=== PATIENT | male | born 1970 | race Caucasian/White ===

== ENCOUNTER 2022-10-23 05:58 | Emergency (ER) | payer MEDICAID, SELFPAY ==
[2022-10-23] VITALS (7 sets, daily range): BP systolic 119–158; BP diastolic 74–127; PULSE 73–117; RESP 14–22; TEMP 36.4; O2SAT 92–98; BMI 47.7
[2022-10-23 06:14] LABS: Absolute Neutrophil Count 5.4 X10^3/uL (2.0-7.7); Basophil# 0.06 X10^3/uL; Basophil% 0.8 % (0-1); Eosinophil# 0.19 X10^3/uL; Eosinophils% 2.4 % (0-5); Hematocrit 54.3 % (40-54); Hemoglobin 17.2 g/dL (13.0-16.5); Mean Corp Hgb Conc 31.7 g/dL (32-36); Mean Corpuscular Hgb 28.4 pg (27.0-32.0); Mean Corpuscular Volume 89.6 fL (80-94); Mean Platelet Vol. 10.3 fl (6.2-12.0); Monocyte# 0.76 X10^3/uL; Monocyte% 9.6 % (0-10); NRBC Flagged by Analyzer 0 % (0-5); Neutrophil # 5.38 X10^3/uL (2.7-7.7); Neutrophil % 67.9 % (47-70); Platelet Count 234 K/mm3 (150-450); RBC Distribution Width CV 14.1 % (11.6-14.6); RBC Distribution Width SD 46.1 fl (35.1-43.9); Red Blood Count 6.06 M/mm3 (4.6-6.2); White Blood Count 7.9 K/mm3 (4.4-11.0)
--- NOTE | 2022-10-23 06:20 | RAD_ITS ---
EXAM: XR CHEST, 1 VIEW CLINICAL INDICATION: chest pain TECHNIQUE: Frontal view of the chest. COMPARISON: No relevant prior studies available. FINDINGS: LUNGS AND PLEURAL SPACES: Thickening of the pulmonary interstitial markings, greatest in the perihilar regions, with minimal patchy perihilar airspace disease, greater on the right. No pneumothorax. No effusion. The lungs are not hyperinflated. HEART: Moderate cardiomegaly with cephalization of pulmonary blood flow. MEDIASTINUM: Thoracic aorta is not elongated. 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 BONES/JOINTS: No acute osseous abnormality. SOFT TISSUES: Large body habitus. RAD/Chest 1 View (Portable) IMPRESSION: Cardiomegaly with findings of cardiac decompensation/CHF, including pulmonary venous hypertension and mild pulmonary edema. Electronically Signed: Bentley Odom MD at 6:32 EDT ,
[2022-10-23 06:33] LABS: Anion Gap 6 (5-15); BUN 11 mg/dL (7-18); Calcium,Total 8.7 mg/dL (8.5-10.1); Chloride 102 mmol/L (98-107); Creatinine, Serum 0.84 mg/dL (0.70-1.30); EST Glomerular Filtration Rate 102 mL/min (>60); Est Glom Filt Rate - Afr Amer 123 mL/min (>60); Estimated Creatinine Clearance 104.04 ml/min; Glucose 126 mg/dL (74-106); Potassium 3.2 mmol/L (3.5-5.1); Sodium Level 140 mmol/L (136-145); Troponin-I HS (w/2H Reflex) 17 pg/mL (3.0-78.0)
--- NOTE | 2022-10-23 06:45 | EDS_ITS ---
HPI History of Present Illness Chief Complaint: Chest Pain Narrative Narrative: 52-year-old male presenting with chest pain and shortness of breath. He states he woke up from sleep this morning secondary to acid reflux at about 3 AM. He then states that he woke up again with his chest pounding his heart racing. Patient states he was diagnosed with A-fib about 6 months ago or so. He was put on Xarelto, however he was not put on anything for rate control. He notes that he does have lower extremity edema which is worse since that I did increase his hydrochlorothiazide. He states he sleeps on 3 pillows which is his baseline. He states he cannot lay flat because he gets short of breath. 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 [facility] Medical History (Updated 10/23/22 @ 06:09 by Elma Ospina) Diabetes Glaucoma Gout Hypertension Home Medications allopurinol 100 mg tablet 100 mg PO DAILY 10/23/22 [History Last Taken Unknown] amlodipine 5 mg tablet 5 mg PO DAILY 10/23/22 [History Last Taken Unknown] brimonidine 0.15 % eye drops (Alphagan P) 1 drp EACH EYE QHS 10/23/22 [History Last Taken Unknown] hydrochlorothiazide 50 mg tablet 50 mg PO DAILY 10/23/22 [History Last Taken Unknown] lisinopril 40 mg tablet 40 mg PO DAILY 10/23/22 [History Last Taken Unknown] metformin 500 mg tablet,extended release 24 hr 500 mg PO QPM 10/23/22 [History Last Taken Unknown] omeprazole 40 mg capsule,delayed release 40 mg PO DAILY 10/23/22 [History Last Taken Unknown] timolol maleate 0.25 % eye drops 1 drp EACH EYE DAILY 10/23/22 [History Last Taken Unknown] Allergy/AdvReac Type Severity Reaction Status Date / Time No Known Allergies Allergy Verified 10/23/22 06:01 Social History Smoking Status: Former smoker EXAM Physical Exam Const Vital Signs: 10/23/22 05:58 10/23/22 06:02 10/23/22 06:10 Temperature 97.6 F L Temperature Source Temporal Pulse Rate 109 H Respiratory Rate 14 Respiratory Effort Normal Non-Labored Blood Pressure 158/127 H Blood Pressure Mean 137 Pulse Ox 92 Oxygen Delivery Method Room Air Room Air 10/23/22 06:58 10/23/22 07:05 Temperature Temperature Source Pulse Rate 117 H 95 Respiratory Rate 22 H 22 H Respiratory Effort Blood Pressure 141/99 H 119/91 H Blood Pressure Mean 113 100 Pulse Ox 92 92 Oxygen Delivery Method Room Air Heart Score History: Slightly/Non-Suspicious ECG: Normal Age: >45 - <65 years Risk Factors: >/= 3 Risk Factors or History of CAD Troponin: </= Normal Limit Score: 3 MDM MDM MDM Narrative Medical decision making narrative: Patient presenting with chest pain and shortness of breath. He states has been having runs of atrial fibrillation. He is on Eliquis but states he is not on anything for rate control. He had an echocardiogram performed in July with his water sander which showed a EF of 50 to 55%. Differential includes A-fib, a flutter, CHF, ACS, pneumonia. Patient is stating that he has lower extremity edema, orthopnea. He is given Cardizem 20 mg IV and his heart rate is now under 100. CBC shows no leukocytosis. Hemoglobin macular stable. Platelets are normal. Renal function electrolytes within normal limits with exception of a potassium of 3.2. High-sensitivity troponin 17. BNP is pending. Second high- sensitivity troponin is also pending. Chest x-ray on my interpretation concerning for CHF. I will have the patient ambulated on pulse ox. He is currently not on any oxygen. Patient will be signed out to incoming ED physician for monitoring. Lab Data Attestation: I reviewed the patient's lab results. Labs: Laboratory Results - last 24 hr 10/23/22 10/23/22 05:43 05:43 WBC 7.9 RBC 6.06 Hgb 17.2 H Hct 54.3 H MCV 89.6 MCH 28.4 MCHC 31.7 L RDW Std Deviation 46.1 H RDW Coeff of Tee 14.1 Plt Count 234 MPV 10.3 Immature Gran % (Auto) 0.300 Neut % (Auto) 67.9 Lymph % (Auto) 19.0 [place] % (Auto) 9.6 Eos % (Auto) 2.4 Baso % (Auto) 0.8 Absolute Neuts (auto) 5.4 Absolute Lymphs (auto) 1.50 Nucleated RBC % 0 Sodium 140 Potassium 3.2 L Chloride 102 Carbon Dioxide 32.0 Anion Gap 6 BUN 11 Creatinine 0.84 Estim Creat Clear Calc 104.04 Est GFR (MDRD) Af Amer 123 Est GFR (MDRD) Non-Af 102 BUN/Creatinine Ratio 13.0 Glucose 126 H Calcium 8.7 Troponin I High Sens 17 Radiography Diagnostic Testing: Clinical Impression(s) from Imaging Studies Chest X-Ray 10/23/22 06:20 IMPRESSION: Cardiomegaly with findings of cardiac decompensation/CHF, including pulmonary venous hypertension and mild pulmonary edema. Electronically Signed: Bentley Odom MD at 6:32 EDT , Discharge Plan Triage Chief Complaint: Chest Pain ED Provider: Jameel Brown Dx/Rx/DC Orders Prescriptions: No Action hydrochlorothiazide 50 mg Tablet 50 mg PO DAILY amlodipine 5 mg Tablet 5 mg PO DAILY allopurinol 100 mg Tablet 100 mg PO DAILY omeprazole 40 mg Capsule,Delayed Release(Dr/Ec) 40 mg PO DAILY timolol maleate 0.25 % Drops 1 drp EACH EYE DAILY lisinopril 40 mg Tablet 40 mg PO DAILY metformin 500 mg Tablet Extended Release 24 Hr 500 mg PO QPM brimonidine [Alphagan P] 0.15 % Drops 1 drp EACH EYE QHS Primary Care Provider: Care Physician,Maribel Primary Referrals: Janes Bright MD [Non-Staff] -
[2022-10-23] MEDS: dilTIAZem 25 MG/5 ML Vial 20 MG IV BOLUS (06:57)
[2022-10-23 07:36] LABS: BNP,B-Type NATRIURETIC PEPTIDE 182.2 pg/mL (0-100)
[2022-10-23] MEDS: Potassium Chloride Oral Tablet 20 MEQ 40 MEQ PO (07:49)
[2022-10-23 08:10] LABS: Reflex Troponin-HS? (from REC) Y
[2022-10-23] MEDS: Metoprolol Tartrate 25 MG Tablet PO (08:19)
[2022-10-23] MEDS: Furosemide 20 MG/2 ML VIAL IV (08:19)
[2022-10-23] MEDS: Rivaroxaban 20 MG Tablet PO (08:20)
[2022-10-23 09:43] LABS: Troponin-I HS 14 pg/mL (3.0-78.0)
== END 2022-10-23 10:52 | disposition home or self-care (01) ==
PROVIDERS: Emergency Provider Student in an Organized Health Care Education/Training Program; Visit Provider Student in an Organized Health Care Education/Training Program
DX: R07.9 Chest pain, unspecified (principal); I48.91 Unspecified atrial fibrillation; E11.9 Type 2 diabetes mellitus without complications; Z87.891 Personal history of nicotine dependence; Z79.01 Long term (current) use of anticoagulants; Z79.84 Long term (current) use of oral hypoglycemic drugs; Z79.899 Other long term (current) drug therapy; M10.9 Gout, unspecified; H40.9 Unspecified glaucoma; I10 Essential (primary) hypertension
CPT/HCPCS: 71045; 80048; 83880; 84484; 85025; 93005; 99285; A4216; J1940

== ENCOUNTER 2023-02-12 07:05 | Emergency (ER) | payer MEDICAID, SELFPAY ==
[2023-02-12 07:06] VITALS: BP 132/101; PULSE 98; RESP 16; TEMP 36.6; O2SAT 95; BMI 49.5
--- NOTE | 2023-02-12 07:21 | EX.ED.DYSGE1 ---
HPI History of Present Illness Chief Complaint: Cough Informant: patient and spouse/S.O. Narrative Narrative: Here with significant other for 3-day history of productive cough. No fevers chills. No myalgias. No vomiting or diarrhea. Sick contacts with family members at home. COVID vaccinated denies any COVID diagnosis history. History of sleep apnea. Denies asthma or COPD. Denies tobacco history. Patient is on Xarelto history of paroxysmal A-fib, reported DCCV in the past. [facility] Medical History Diabetes Glaucoma Gout Hypertension Home Medications allopurinol 100 mg tablet 100 mg PO DAILY 10/23/22 [History Last Taken Unknown] amlodipine 5 mg tablet 5 mg PO DAILY 10/23/22 [History Last Taken Unknown] brimonidine 0.15 % eye drops (Alphagan P) 1 drp EACH EYE QHS 10/23/22 [History Last Taken Unknown] furosemide 20 mg tablet (Lasix) 20 mg PO DAILY #30 tabs 10/23/22 [Rx Last Taken Unknown] hydrochlorothiazide 50 mg tablet 50 mg PO DAILY 10/23/22 [History Last Taken Unknown] lisinopril 40 mg tablet 40 mg PO DAILY 10/23/22 [History Last Taken Unknown] metformin 500 mg tablet,extended release 24 hr 500 mg PO QPM 10/23/22 [History Last Taken Unknown] metoprolol tartrate 25 mg tablet 25 mg PO BID #60 tabs 10/23/22 [Rx Last Taken Unknown] omeprazole 40 mg capsule,delayed release 40 mg PO DAILY 10/23/22 [History Last Taken Unknown] rivaroxaban 20 mg tablet (Xarelto) 20 mg PO DAILY #30 tabs 10/23/22 [Rx Last Taken Unknown] timolol maleate 0.25 % eye drops 1 drp EACH EYE DAILY 10/23/22 [History Last Taken Unknown] benzonatate 200 mg capsule 200 mg PO TID PRN cough #20 caps 02/12/23 [Rx Last Taken Unknown] Allergy/AdvReac Type Severity Reaction Status Date / Time No Known Allergies Allergy Verified 02/12/23 07:07 Social History Smoking Status: Never smoker ROS ROS ED Constitutional Constitutional ED: Denies chills, fever(s) or sweats Eyes Eyes: Denies change in vision ENT ENT ED: Denies dysphagia or sore throat Cardiovascular Cardiovascular: Denies chest pain, leg edema, palpitations or racing heartbeat Respiratory/Chest Respiratory/Chest: Reports cough; Denies dyspnea or dyspnea on exertion Gastrointestinal Gastrointestinal: Denies abdominal pain, diarrhea, nausea or vomiting Genitourinary Genitourinary ED: Denies dysuria, hematuria or urinary frequency Musculoskeletal Musculoskeletal: Denies back pain, extremity pain or neck pain Integumentary Denies rash or wounds Neurologic Neurologic: Denies headache(s), paresthesias or weakness EXAM Physical Exam Const Vital Signs: 02/12/23 07:06 02/12/23 07:19 Temperature 97.8 F Temperature Source Temporal Pulse Rate 98 Respiratory Rate 16 Respiratory Effort Short of Breath Respiratory Depth Shallow Respiratory Pattern Tachypnea Blood Pressure 132/101 H Blood Pressure Mean 111 Pulse Ox 95 Oxygen Delivery Method Room Air Room Air Positive well nourished and well developed Constitutional Narrative: BMI 49. Occasional coughing on exam. No distress. Not sick General Appearance ED: well developed and NAD HEENT Reports moist mucous membranes normocephalic and atraumatic Eyes PERRL, EOMs intact bilaterally and conjunctivae normal General Eye ED: Yes normal appearance of both eyes Neck no lymphadenopathy and supple General: Negative for tenderness Chest Wall Chest: Negative for tenderness Resp normal respiratory effort and normal air movement Effort and Inspection: symmetric chest movement; Negative for respiratory distress Cardio regular rate, regular rhythm and no murmurs Peripheral Pulses: pulses 2+ throughout GI normal to inspection, nondistended, normoactive bowel sounds and non-tender Palpation: Negative for guarding or rebound tenderness present Back/Spine no CVA tenderness and no thoracic nor lumbar tenderness Extremity normal to inspection General Extremety ED: Negative for edema or tenderness General Extremity: Negative for edema Neuro oriented x3 and no sensory deficits noted Sensorium / Orientation: awake and alert Skin no rashes or lesions noted and no wounds MDM MDM MDM Narrative Medical decision making narrative: Interventions / MDM: Differential diagnosis: Bronchitis Diagnosis considered but do not suspect: Pneumonia however negative chest x-ray, PE however on Xarelto. My EKG interpretation: N/A Imaging independently reviewed and interpreted by myself: 2 view chest x-ray: No infiltrate External documents reviewed: N/A Test considered but not ordered:N/A ED course: Patient nontoxic. Vital signs stable. Occasional coughing exam. COVID influenza ordered 2 view chest x-ray ordered. Results testing are negative. Discussed adjunct treatments for coughing symptoms with humidifiers, vapor rubs and cough suppressants. Written for antitussives to use as needed. Outpatient follow-up with return precautions. Re-evaluation: stable Disposition discussed with patient/family/significant other: Patient and significant other Case discussed with consulting clinician: N/A This note was generated with [employer] dictation software. It may contain incorrect words, spelling, and punctuation that were not noted in checking the note before signing. Radiography Diagnostic Testing: Clinical Impression(s) from Imaging Studies Chest X-Ray 02/12/23 07:36 IMPRESSION: Mild bibasilar atelectasis or inflammation. Electronically Signed: Mariola Lora MD at 8:05 EDT Reading Location ID and State: [facility] / [place] Tel , Service support , Discharge Plan Triage Chief Complaint: Cough ED Provider: Nguyễn Al Dx/Rx/DC Orders Instructions: ED Bronchitis, No Antibiotic (Adult) Prescriptions: New benzonatate 200 mg capsule 200 mg PO TID PRN (Reason: cough) Qty: 20 0RF No Action hydrochlorothiazide 50 mg Tablet 50 mg PO DAILY amlodipine 5 mg Tablet 5 mg PO DAILY allopurinol 100 mg Tablet 100 mg PO DAILY omeprazole 40 mg Capsule,Delayed Release(Dr/Ec) 40 mg PO DAILY timolol maleate 0.25 % Drops 1 drp EACH EYE DAILY lisinopril 40 mg Tablet 40 mg PO DAILY metformin 500 mg Tablet Extended Release 24 Hr 500 mg PO QPM brimonidine [Alphagan P] 0.15 % Drops 1 drp EACH EYE QHS furosemide [Lasix] 20 mg tablet 20 mg PO DAILY Qty: 30 0RF metoprolol tartrate 25 mg tablet 25 mg PO BID Qty: 60 0RF Xarelto 20 mg tablet 20 mg PO DAILY Qty: 30 0RF Rx Instructions: must administer with evening meal Primary Care Provider: Isadora Correa NP Referrals: ZACARIAS HOYOS [Other] - 1 Week if not improving Activity Restrictions/Additional Instructions: Chest x-ray negative. COVID and flu negative. Vapor rubs, humidifier. May use loratadine D that you have at home daily. Cough suppressants as needed. Follow-up with your doctor. Return if any worsening symptoms. Disposition Disposition: Home, Self Care Discharge Date/Time: 02/12/23 09:13
--- NOTE | 2023-02-12 07:36 | RAD_ITS ---
HISTORY: cough. TECHNIQUE: XR Chest 2 Views. COMPARISON: 10/23/2022. FINDINGS: CARDIOMEDIASTINAL BORDERS: Cardiac silhouette again mildly enlarged. Mediastinal contour unremarkable. LUNGS: Mild linear bibasilar opacities. PLEURA: No pleural effusion or pneumothorax seen. OSSEOUS STRUCTURES: Unremarkable. RAD/Chest PA and Lateral IMPRESSION: Mild bibasilar atelectasis or inflammation. Electronically Signed: Mariola Lora MD at 8:05 EDT ,
== END 2023-02-12 09:13 | disposition home or self-care (01) ==
PROVIDERS: Emergency Provider Emergency Medicine; PCP Nurse Practitioner Family; Visit Provider Emergency Medicine
DX: R05.9 Cough, unspecified (principal); I48.0 Paroxysmal atrial fibrillation; E11.9 Type 2 diabetes mellitus without complications; I10 Essential (primary) hypertension; Z79.01 Long term (current) use of anticoagulants; H40.9 Unspecified glaucoma; M10.9 Gout, unspecified; Z79.899 Other long term (current) drug therapy
CPT/HCPCS: 71046; 87428; 99282

== ENCOUNTER → 2024-10-24 06:20 | Outpatient (REF) | payer MEDICAID, SELFPAY ==
[2024-10-24 08:18] LABS: Hematocrit 40.1 % (40-54); Hemoglobin 12.7 g/dL (13.0-16.5); Mean Corp Hgb Conc 31.7 g/dL (32-36); Mean Corpuscular Hgb 28.7 pg (27.0-32.0); Mean Corpuscular Volume 90.7 fL (80-94); Mean Platelet Vol. 9.3 fl (6.2-12.0); Platelet Count 155 K/mm3 (150-450); RBC Distribution Width CV 15.6 % (11.6-14.6); RBC Distribution Width SD 51.8 fl (35.1-43.9); Red Blood Count 4.42 M/mm3 (4.6-6.2); White Blood Count 4.6 K/mm3 (4.4-11.0)
[2024-10-24 08:29] LABS: AST(SGOT) 18 U/L (<=37); Alanine Aminotransfer ALT/SGPT 6 U/L (<=46); Albumin, Serum 3.4 g/dL (3.5-5.0); Alkaline Phosphatase 76 U/L (40-129); Anion Gap 9 (5-15); BUN 10 mg/dL (4-19); BUN/Creat Ratio 14.6 RATIO (10-20); Carbon Dioxide 29.2 mmol/L (21.0-32.0); Chloride 99 mmol/L (98-108); Creatinine, Serum 0.65 mg/dL (0.70-1.20); EST Glomerular Filtration Rate 113 (>60); Globulin 3.2 g/dL (2.2-4.2); Glucose 113 mg/dL (70-99); Potassium 3.8 mmol/L (3.3-5.1); Protein, Total 6.6 g/dL (5.9-8.4); Sodium Level 137 mmol/L (133-145); Total Bilirubin 0.31 mg/dL (0.00-1.30)
== END ==
LOC: OLS.SW 06:20
PROVIDERS: PCP Nurse Practitioner Family; Visit Provider Internal Medicine
DX: Z98.890 Other specified postprocedural states (principal)
CPT/HCPCS: 36415; 80053; 85027

== ENCOUNTER → 2024-10-28 04:00 | Outpatient (REF) | payer MEDICAID, SELFPAY ==
[2024-10-28 08:16] LABS: Absolute Lymphocyte Count 1.07 X10^3/uL (0.83-4.51); Absolute Neutrophil Count 2.8 X10^3/uL (2.0-7.7); Basophil# 0.03 X10^3/uL; Basophil% 0.7 % (0-1); Eosinophil# 0.09 X10^3/uL; Hematocrit 41.2 % (40-54); Lymphocyte # 1.07 X10^3/ul (0.83-4.51); Mean Corp Hgb Conc 31.6 g/dL (32-36); Mean Corpuscular Hgb 28.8 pg (27.0-32.0); Mean Corpuscular Volume 91.2 fL (80-94); Mean Platelet Vol. 9.6 fl (6.2-12.0); Monocyte# 0.49 X10^3/uL; NRBC Flagged by Analyzer 0 % (0-5); Neutrophil # 2.75 X10^3/uL (2.7-7.7); Neutrophil % 61.9 % (47-70); Platelet Count 154 K/mm3 (150-450); RBC Distribution Width CV 15.9 % (11.6-14.6); RBC Distribution Width SD 53.1 fl (35.1-43.9); Red Blood Count 4.52 M/mm3 (4.6-6.2); White Blood Count 4.5 K/mm3 (4.4-11.0)
[2024-10-28 09:56] LABS: Anion Gap 10 (5-15); BUN 10 mg/dL (4-19); BUN/Creat Ratio 13.8 RATIO (10-20); Calcium,Total 8.9 mg/dL (7.6-11.0); Carbon Dioxide 27.1 mmol/L (21.0-32.0); Chloride 98 mmol/L (98-108); Cholesterol 95 mg/dL (<=200); Creatinine, Serum 0.74 mg/dL (0.70-1.20); EST Glomerular Filtration Rate 108 (>60); Glucose 108 mg/dL (70-99); High Density Lipoprotein 23 mg/dL; Low Density Lipoprotein Calc. 46 mg/dL; Magnesium 2.2 mg/dL (1.5-2.2); Potassium 4.1 mmol/L (3.3-5.1); Sodium Level 135 mmol/L (133-145); Triglycerides 129 mg/dL; Uric Acid 5.8 mg/dL (3.5-7.2); Very Low Density Lipoprotein 26 mg/dL (5-40); cholesterol:hdl ratio screen 4.07
[2024-10-28 10:05] LABS: Vitamin D,25 Hydroxy < 6.0 ng/mL (30-100)
== END ==
LOC: OLS.SW 04:00
PROVIDERS: PCP Nurse Practitioner Family; Referring Provider Internal Medicine; Visit Provider Internal Medicine
DX: I48.91 Unspecified atrial fibrillation (principal); I11.0 Hypertensive heart disease with heart failure; I50.9 Heart failure, unspecified; J44.9 Chronic obstructive pulmonary disease, unspecified; E11.9 Type 2 diabetes mellitus without complications; S82.841D Displaced bimalleolar fracture of right lower leg, subsequent encounter for closed fracture with routine healing; E78.5 Hyperlipidemia, unspecified
CPT/HCPCS: 36415; 80048; 80061; 82306; 83735; 84443; 84550; 85025

== ENCOUNTER → 2024-10-30 05:55 | Outpatient (REF) | payer MEDICAID, SELFPAY ==
--- OUTSIDE RECORDS SUMMARY | 2024-10-30 07:03 | XMS RPT_ITS | CCD ---
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 Name Role Phone Zacarias Cohn Referring Unavailable Cohn, Zacarias Primary Care Unavailable STRESS TESTS, INV CARD Attending Unavailab Gem Gunter Attending Unavailable SARAH COHNN Referring Unavailable COHN, ZACARIAS Primary Care Unavailable STRESS TESTS, INV CARD Attending Unavailab ZACARIAS Hawley Referring Unavailable COHN, ZACARIAS Primary Care Unavailable COHN, ZACARIAS Primary Care Unavailable Gem Barr Attending Unavailable ROMAIN ZACARIAS Referring Unavailable Melissa Ayala Attending Unavailable PHYSICIAN, NONE Primary Care Physician Unavailab ZACARIAS Hawley Attending Unavailable COHN, ZACARIAS Primary Care Unavailable COHN, ZACARIAS Primary Care Unavailable KIM MEJIA Attending Unavailable ZACARIAS COHN Attending Unavailable SELF, REFERRAL Referring Unavailable COHN, ZACARIAS Primary Care Unavailable ISADORA HYLTON Primary Care Physician Kristin JAMISON, Roxane Fine Unavailable Unavailable ELIEZER SURESH Attending Unavailable ISADORA CORREA Primary Care Unavailable JAD WATTS Attending ISADORA Strong Primary Care Unavailable HELENA GAINES MD Consulting Unavailable CINDY HERNANDEZ MD Attending Unavailable CINDY HERNANDEZ MD Admitting Unavailable CINDY HERNANDEZ MD Consulting Unavailable JAD WATTS Attending JAD Ryan Admitting ISADORA Strong Primary Care Unavailable JAD WATTS Attending JAD Ryan Admitting ISADORA Strong Primary Care Unavailable ISADORA CORREA Attending Unavailable ISADORA CORREA Primary Care [facility]ending [facility] Primary Care Unavailable BETZAIDA PETTIT, DEMI Attending Unavailable [facility] Primary Care Unavailable BETZAIDA PETTIT, DEMI Attending [facility]available [facility] Primary Care Unavailable SAMY JONES Attending [facility]available [facility] Primary Care Unavailable CINDY HERNANDEZ MD Consulting Unavailable DR OLLIE BROOKE MD Attending [facility]availabl [facility] Primary Care Unavailable SLOANE AGARWAL DO Attending Unavailable [place], [place] Primary Care Unavailable SLOANE AGARWAL DO Attending Unavailable [facility] Admitting Unavailable [facility] Attending Unavailable [facility] Primary [facility] Un[facility] Primary Care Unavailable KAVYA SEBD TEACHER-LEADERSHIP DEVELOPMENT MANAGERJONNY Attending U julio cesar YANES SEBD TEACHER-LEADERSHIP DEVELOPMENT MANAGERHELEN Attending Unava ilable [facility] SEBD TEACHER-LEADERSHIP DEVELOPMENT MANAGER, [facility] Care Unavail able [place] SEBD TEACHER-LEADERSHIP DEVELOPMENT MANAGER, [place] Attending Unavail able [place] SEBD TEACHER-LEADERSHIP DEVELOPMENT MANAGER, [place] Primary Care Unavail able [facility] SEBD TEACHER-LEADERSHIP DEVELOPMENT MANAGER, [place] Attending Unavail able [facility] SEBD TEACHER-LEADERSHIP DEVELOPMENT MANAGER, [place] Primary Care Unavail able [facility] SEBD TEACHER-LEADERSHIP DEVELOPMENT MANAGER, [place] Attending Unavail able [facility] SEBD TEACHER-LEADERSHIP DEVELOPMENT MANAGER, [place] Primary Care Unavail able [facility] SEBD TEACHER-LEADERSHIP DEVELOPMENT MANAGER, [place] Primary Care Unavail able [facility] SEBD TEACHER-LEADERSHIP DEVELOPMENT MANAGER, [place] Attending Unavail able [facility] SEBD TEACHER-LEADERSHIP DEVELOPMENT MANAGER, [place] Attending Unavail able [place] SEBD TEACHER-LEADERSHIP DEVELOPMENT MANAGER, [place] Primary Care Unavail able [facility] SEBD TEACHER-LEADERSHIP DEVELOPMENT MANAGER, [place] Attending Unavail able [facility] SEBD TEACHER-LEADERSHIP DEVELOPMENT MANAGER, [facility] Care Unavail able CINDY HERNANDEZ MD Consulting Unavailable DR SAMY JONES MD, V Attending Unavai lable [facility] SEBD TEACHER-LEADERSHIP DEVELOPMENT MANAGER, [facility] Care Unavail able DELORES MURO DO Attending Unavailable [facility] SEBD TEACHER-LEADERSHIP DEVELOPMENT MANAGER, [facility] Care Unavail able DR WILNER JOE MD Attending Unavailabl e [facility] SEBD TEACHER-LEADERSHIP DEVELOPMENT MANAGER, [facility] Care Unavail able CIRILO PATEL DO Attending Unavailable [place] SEBD TEACHER-LEADERSHIP DEVELOPMENT MANAGER, [facility] Care Unavail able JAKE MAXWELL Attending Unavailable JAKE MAXWELL Primary Care Unavailable JAKE MAXWELL Admitting Unavailable MOY WATTS MD Attending U julio cesar PECK MD, JANAE Consulting Unavailable ROBERT SCHMITZ Admitting Unavailable [place] SEBD TEACHER-LEADERSHIP DEVELOPMENT MANAGER, [facility] Unavail michele ZIMMER MD, ARIEL Consulting Unavailable NATALY PETTIT, BRENNON Attending Unavailable DAVID PETTIT, CINDY Aden Admitting Unavailable HELENA GAINES MD Consulting Unavailable [facility] SEBD TEACHER-LEADERSHIP DEVELOPMENT MANAGER, [facility] Unavail michele HERRMANN MD, DR UPTON Consulting Unavailable DAVID PETTIT, CINDY Aden Consulting Unavailable NANI QUINTANA DO Attending Unavailable LUPE STONE, DR ORTIZ Consulting Unavailable [facility] SEBD TEACHER-LEADERSHIP DEVELOPMENT MANAGER, [facility] Unavail able NANI QUINTANA DO Admitting Unavailable CORRY STONE, CHANTAL Reardon Consulting Unavailable TOMAS PETTIT, MELISSA Epstein Consulting Unavailable [facility] Consulting Unavailable Sunny SIZE ROLLER OPERATOR, [facility] Unavailable Dolly Walter Attending Unavailable Sunny SIZE ROLLER OPERATOR, [facility] Unavailable Dolly Walter Attending Unavailable Allergies Allergy Classification Reported Allergen(s) Allergy Type Date of Onset Reaction(s) Facility (4 sources) HMG-CoA reductase inhibitor; 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: [statins] Propensity to adverse reactions to drug myalgia [facility] [place] Medications Current Medications Medication Drug Class(es) Dates Sig (Normalized) Sig (Original) acetaminophen 1000 mg oral tablet (9 sources) Start: 11-07-2023 take 1 dose by mouth every four hours as needed for pain Tylenol Dose : 1,000 mg =, Oral, q4h, PRN as needed for pain, 0 Refill(s) Start Date: 11/07/23 Status: Ordered Repeat number: 1 Start: 11-07-2023 Tylenol Oral, PRN as needed for pain, 0 Refill(s) Start Date: 11/07/23 Status: Ordered Repeat number: 1 Start: 11-07-2023 Tylenol Oral, PRN as needed for pain, 0 Refill(s) Start Date: 11/07/23 Status: Ordered acetaminophen 325 mg / HYDROcodone bitartrate 5 mg oral tablet (2 sources) Opioid Agonist Start: 05-05-2023 End: 05-08-2023 take 1 tablet by mouth every six hours as needed for pain [place] 325- 5 mg oral tablet Dose = 1 tab(s), Oral, q6h, PRN As needed for severe pain, X 3 day(s), # 12 tab(s), 0 Refill(s), Contusion of rib on right side, 144.4 Start Date: 05/05/23 Stop Date: 05/08/23 Status: Ordered Start: 07-15-2022 End: 07-17-2022 take 1 tablet by mouth every six hours as needed for pain [place] 325- 5 mg oral tablet Dose = 1 tab(s), Oral, q6h, PRN for pain, X 2 day(s), # 8 tab(s), 0 Refill(s), Acute periapical abscess Odontalgia, 148.6 Start Date: 07/15/22 Stop Date: 07/17/22 Status: Ordered acetaminophen 325 mg / oxyCODONE hydrochloride 5 mg oral tablet (1 source) Opioid Agonist Start: 10-17-2024 End: 10-24-2024 take 1 tablet by mouth every six hours Percocet 5 mg-325 mg oral tablet Dose = 1 tab(s), Oral, q6hr, X 7 day(s), # 28 tab(s), 0 Refill(s), Pharmacy: [facility]/pharmacy #[id number], Post-op pain, 177.8, cm, 10/17/24 1:29:00 EDT, Height, 142, kg, 10/17/24 1:29:00 EDT, Dosing Weight Start Date: 10/17/24 Stop Date: 10/24/24 Status: Ordered Quantity: 28.0 Unit: tab(s) Repeat number: 1 Indications: Other acute postprocedural pain; albuterol 0.83 mg/ml inhalation solution (3 sources) beta2-Adrenergi c Agonist Start: 08-27-2024 take 1 dose by inhalation every six hours albuterol 2.5 mg/3 mL (0.083%) inhalation solution Dose : 2.5 mg = 3 mL, Inhalation, q6h, # 120 EA, 0 Refill(s), Pharmacy: [facility]/pharmacy #[id number], 176, cm, 08/27/24 14:57:00 EDT, Height, kg, 08/27/24 14:57:00 EDT, Dosing Weight Start Date: 08/27/24 Status: Ordered Quantity: 120.0 Unit: EA Repeat number: 1 allopurinol 100 mg oral tablet (20 sources) Xanthine Oxidase Inhibitor Start: 12-12-2023 allopurinol 100 mg oral tablet Dose : 100 mg = 1 tab(s), Oral, qDay, # 90 tab(s), 3 Refill(s), Pharmacy: [facility], 177.8, cm, 11/28/23 13:54:00 EDT, Height, kg, 11/28/23 13:54:00 EDT, Dosing Weight Start Date: 12/12/23 Status: Ordered Quantity: 90.0 Unit: tab(s) Repeat number: 4 Start: 08-08-2023 allopurinol 10 0 mg oral tablet Dose : 100 mg = 1 tab(s), Oral, qDay, # 90 tab(s), 3 Refill(s), [facility]acy: [facility] #[id number], 178.5, cm, 08/08/23 13:32:00 EDT, Height, kg, 08/08/23 13:32:00 EDT, Dosing Weight Start Date: 08/08/23 Status: Ordered Start: 10-23-2022 End: 02-06-2023 allopurinol 100 mg oral tabl et Dose : 100 mg = 1 tab(s), Oral, qDay, # 90 tab(s), 3 Refill(s), Pharmacy: [facility] #[id number], 175.3, cm, 12/23/22 6:37:00 EDT, Height, kg, 12/23/22 6:38:00 EDT, Dosing Weight Start Date: 01/31/23 Status: Ordered Start: 07-11-2022 take 1 dose by mouth once anjum y allopurinol Dose : 500 mg =, Oral, qDay Start Date: 07/11/22 Status: Ordered amLODIPine 5 mg oral tablet (5 sources) Dihydropyridine Calcium Channel Kp Start: 10-23-2022 Norvasc 5 mg oral tablet Dose : 5 mg = 1 tab(s), Oral, qDay, # 30 tab(s), 0 Refill(s) Start Date: 10/25/22 Status: Ordered atorvastatin 40 mg oral tablet (3 sources) HMG-CoA Reductase Inhibitor Start: 08-09-2023 atorvastatin 40 mg oral tablet Dose : 40 mg = 1 tab(s), Oral, Daily, # 100 tab(s), 3 Refill(s), Pharmacy: [facility] #[id number], 178.5, cm, 08/08/23 13:32:00 EDT, Height, kg, 08/08/23 13:32:00 EDT, Dosing Weight Start Date: 08/09/23 Status: Ordered bempedoic acid 180 mg oral tablet (4 sources) Start: 05-14-2024 Nexletol 180 m g oral tablet Dose : 180 mg = 1 tab(s), Oral, qDay, # 30 tab(s), 5 Refill(s), Pharmacy: [facility], 175, cm, 05/14/24 13:59:00 EST, Height, kg, 05/14/24 13:57:00 EST, Dosing Weight Start Date: 05/14/24 Status: Ordered Quantity: 30.0 Unit: tab(s) Repeat number: 6 benzonatate 100 mg oral capsule (2 sources) Non-narcotic Antitussive Start: 06-13-2023 End: 06-20-2023 Tessalon Perles 100 mg oral capsule Dose : 100 mg = 1 cap(s), Oral, TID, X 7 day(s), # 21 cap(s), 0 Refill(s), 06/20/23 1:02:00 AM EST Start Date: 06/13/23 Stop Date: 06/20/23 Status: Ordered Start: 02-12-2023 take 200 mg by mouth three times daily Benzonatate Active 200 MG PO THREE TIMES A DAY February 12, 2023 12:00am Blood Glucose Test Machine (6 sources) Start: 12-12-2023 Blood Glucose Test Machine See Instructions, Use glucometer daily as directed for blood sugar checks. Dispense insurance preferred device, # 1 EA, 0 Refill(s), Pharmacy: [facility], 177.8, cm, 11/28/23 13:54:00 EDT, Height, 151.4, kg, 11/28/23 13:54:00 EDT, Dosing Weight Start Date: 12/12/23 Status: Ordered Quantity: 1.0 Unit: EA Repeat number: 1 Start: 12-12-2023 Blood Glucose Test Machine See Instructions, Use glucometer daily as directed for blood sugar checks. Dispense insurance preferred device, # 1 EA, 0 Refill(s), Pharmacy: [facility], 177.8, cm, 11/28/23 13:54:00 EDT, Height, 151.4, kg, 11/28/23 13:54:00 EDT, Dosing Weight Start Date: 12/12/23 Status: Ordered cetirizine hydrochloride 10 mg oral tablet (12 sources) Histamine-1 Receptor Antagonist Start: 08-08-2023 End: 12-06-2024 cetirizine 10 mg oral tablet Dose : 10 mg = 1 tab(s), Oral, Daily, # 90 tab(s), 3 Refill(s), Pharmacy: [facility], 177.8, cm, 11/28/23 13:54:00 EDT, Height, kg, 11/28/23 13:54:00 EDT, Dosing Weight Start Date: 12/12/23 Stop Date: 12/06/24 Status: Ordered Quantity: 90.0 Unit: tab(s) Repeat number: 4 clindamycin 150 mg oral capsule (1 source) Lincosamide Antibacterial Start: 07-15-2022 End: 07-22-2022 clindamycin 150 mg oral capsule Dose : 300 mg = 2 cap(s), Oral, q6h, X 7 day(s), # 56 cap(s), 0 Refill(s), 07/22/22 21:17:00 EST, Acute periapical abscess Odontalgia, 148.6 Start Date: 07/15/22 Stop Date: 07/22/22 Status: Ordered dofetilide 0.25 mg oral capsule (14 sources) Antiarrhythmic Start: 10-04-2024 Tikosyn 250 mc g oral capsule Dose : 250 mcg = 1 cap(s), Oral, BID, # 180 cap(s), 4 Refill(s), Pharmacy: [facility]/pharmacy #[id number], 177.8, cm, 10/02/24 6:28:00 EDT, Height, kg, 10/02/24 6:28:00 EDT, Dosing Weight Start Date: 10/04/24 Status: Ordered Quantity: 180.0 Unit: cap(s) Repeat number: 5 Start: 09-24-2024 Tikosyn 250 mc g oral capsule Dose : 250 mcg = 1 cap(s), Oral, BID, # 180 cap(s), 1 Refill(s), Pharmacy: [facility]/pharmacy #[id number], 175, cm, 09/05/24 16:01:00 EDT, Height, kg, 09/05/24 16:01:00 EDT, Dosing Weight Start Date: 09/24/24 Status: Ordered Quantity: 180.0 Unit: cap(s) Repeat number: 2 Start: 12-12-2023 Tikosyn 250 mc g oral capsule Dose : 250 mcg = 1 cap(s), Oral, BID, # 180 cap(s), 3 Refill(s), Pharmacy: [facility]/pharmacy #[id number], 177.8, cm, 11/28/23 13:54:00 EDT, Height, kg, 11/28/23 13:54:00 EDT, Dosing Weight Start Date: 12/12/23 Status: Ordered Quantity: 180.0 Unit: cap(s) Repeat number: 4 Start: 06-09-2023 Tikosyn 250 mc g oral capsule Dose : 250 mcg = 1 cap(s), Oral, BID, # 60 cap(s), 2 Refill(s), Pharmacy: [facility] #[id number], 176, cm, 06/07/23 13:36:00 EST, Height, kg, 06/07/23 13:36:00 EST, Dosing Weight Start Date: 06/09/23 Status: Ordered 0.5 ml dulaglutide 3 mg/ml auto-injector (10 sources) GLP-1 Receptor Agonist Start: 04-15-2024 End: 10-02-2025 inject 1 dose by subcutaneous injection every week Morrisity Pen 1.5 mg/0.5 mL subcutaneous solution Dose : 1.5 mg =, Subcutaneous, qWeek, # 12 EA, 3 Refill(s), Pharmacy: [facility]/pharmacy #[id number], 177.8, cm, 10/02/24 6:28:00 EDT, Height, kg, 10/02/24 6:28:00 EDT, Dosing Weight Start Date: 10/07/24 Stop Date: 10/02/25 Status: Ordered Quantity: 12.0 Unit: EA Repeat number: 4 Start: 12-12-2023 End: 04-02-2024 inject 1 dose by subcutaneous injection every week Trulicity Pen 1.5 mg/0.5 mL subcutaneous solution Dose : 1.5 mg =, Subcutaneous, qWeek, sent in absence of PCP, # 4 EA, 3 Refill(s), Pharmacy: [facility], 177.8, cm, 11/28/23 13:54:00 EDT, Height, kg, 11/28/23 13:54:00 EDT, Dosing Weight Start Date: 12/12/23 Stop Date: 04/02/24 Status: Ordered Start: 08-21-2023 inject 0.5 mL by sub cutaneous injection every week Trulicity Pen 0.75 mg/0.5 mL subcutaneous solution Dose : 0.75 mg = 0.5 mL, Subcutaneous, qWeek, # 2.5 mL, 5 Refill(s), 0.5 mL/Pen, Pharmacy: [facility] #[id number], 177.8, cm, 08/09/23 21:07:00 EDT, Height, kg, 08/09/23 21:07:00 EDT, Dosing Weight Start Date: 08/21/23 Status: Ordered DULoxetine 20 mg delayed release oral capsule (3 sources) Serotonin and Norepinephrine Reuptake Inhibitor Start: 10-02-2024 DULoxetine 20 mg oral delayed release capsule Dose : 20 mg = 1 cap(s), Oral, qDay Start Date: 10/02/24 Status: Ordered Repeat number: 1 FLUoxetine 10 mg oral capsule (16 sources) Serotonin Reuptake Inhibitor Start: 12-12-2023 FLUoxetine 20 mg oral capsule Dose : 20 mg = 1 cap(s), Oral, qDay, # 30 cap(s), 3 Refill(s), Pharmacy: [facility], 177.8, cm, 11/28/23 13:54:00 EDT, Height, kg, 11/28/23 13:54:00 EDT, Dosing Weight Start Date: 12/12/23 Status: Ordered Start: 08-08-2023 End: 08-02-2024 FLUoxetine 10 mg oral capsul e Dose : 10 mg = 1 cap(s), Oral, qDay, # 30 cap(s), 0 Refill(s), Pharmacy: [facility], 175, cm, 05/14/24 13:59:00 EST, Height, kg, 05/14/24 13:57:00 EST, Dosing Weight Start Date: 05/14/24 Status: Ordered Quantity: 30.0 Unit: cap(s) Repeat number: 1 Start: 06-09-2023 FLUoxetine 10 mg oral capsule Dose : 10 mg = 1 cap(s), Oral, qDay, # 30 cap(s), 2 Refill(s), Pharmacy: [facility] #[id number], 176, cm, 06/07/23 13:36:00 EST, Height, kg, 06/07/23 13:36:00 EST, Dosing Weight Start Date: 06/09/23 Status: Ordered Start: 01-31-2023 FLUoxetine 20 mg oral tablet Dose : 20 mg = 1 tab(s), Oral, qDay, # 90 tab(s), 3 Refill(s), Pharmacy: [facility] #[id number], 175.3, cm, 12/23/22 6:37:00 EDT, Height, kg, 12/23/22 6:38:00 EDT, Dosing Weight Start Date: 01/31/23 Status: Ordered Start: 12-13-2022 FLUoxetine 20 mg oral tablet Dose : 20 mg = 1 tab(s), Oral, qDay, # 30 tab(s), 3 Refill(s), Pharmacy: [facility] #[id number], 175.3, cm, 12/13/22 14:43:00 EDT, Height Start Date: 12/13/22 Status: Ordered Start: 11-08-2022 FLUoxetine 10 mg oral tablet Dose : 10 mg = 1 tab(s), Oral, qDay, # 30 tab(s), 2 Refill(s), [facility]acy: [facility] #[id number], 177, cm, 11/08/22 13:50:00 EDT, Height Start Date: 11/08/22 Status: Ordered 120 actuat fluticasone propionate 0.11 mg/actuat metered dose inhaler (3 sources) Corticosteroid Start: 08-08-2023 End: 08-02-2024 take 2 puff(s) by inhalation twice daily Flovent HFA 110 mcg/inh inhalation aerosol 2 puff(s), Inhalation, BID, # 3 EA, 3 Refill(s), Pharmacy: [facility] #[id number], 178.5, cm, 08/08/23 13:32:00 EDT, Height, kg, 08/08/23 13:32:00 EDT, Dosing Weight Start Date: 08/08/23 Stop Date: 08/02/24 Status: Ordered furosemide 20 mg oral tablet (20 sources) Loop Diuretic Start: 03-07-2024 furosemide 20 mg oral tablet Dose : 20 mg = 1 tab(s), Oral, Daily, Take 2 tablets daily for the first 3 days followed by 1 tablet daily., # 30 tab(s), 0 Refill(s), Pharmacy: [facility], 175, cm, 02/13/24 15:03:00 EDT, Height, kg, 02/13/24 15:03:00 EDT, Dosing Weight Start Date: 03/07/24 Status: Ordered Quantity: 30.0 Unit: tab(s) Repeat number: 1 Start: 02-09-2024 furosemide 20 mg oral tablet Dose : 20 mg = 1 tab(s), Oral, Daily, Take 2 tablets daily for the first 3 days followed by 1 tablet daily., # 30 tab(s), 3 Refill(s), Pharmacy: [facility]/pharmacy #[id number], 175, cm, 02/09/24 15:58:00 EDT, Height, kg, 02/09/24 15:58:00 EDT, Dosing Weight Start Date: 02/09/24 Status: Ordered Start: 12-12-2023 take 1 tablet by brandon th in the morning, then take 0.5 tablet by mouth in the evening Lasix 40 mg oral tablet See Instructions, 1 tab in AM and 0.5 tab in PM, # 135 tab(s), 3 Refill(s), Pharmacy: [facility], 177.8, cm, 11/28/23 13:54:00 EDT, Height, kg, 11/28/23 13:54:00 EDT, Dosing Weight Start Date: 12/12/23 Status: Ordered Start: 08-08-2023 take 1 tablet by brandon th in the morning, then take 0.5 tablet by mouth in the evening Lasix 40 mg oral tablet See Instructions, 1 tab in AM and 0.5 tab in PM, # 135 tab(s), 3 Refill(s), Pharmacy: [facility] #[id number], 178.5, cm, 08/08/23 13:32:00 EDT, Height, kg, 08/08/23 13:32:00 EDT, Dosing Weight Start Date: 08/08/23 Status: Ordered Start: 11-14-2022 take 1 tablet by brandon th in the morning, then take 0.5 tablet by mouth in the evening Lasix 40 mg oral tablet See Instructions, 1 tab in AM and 0.5 tab in PM, # 135 tab(s), 0 Refill(s), Pharmacy: [facility] #[id number], 177, cm, 11/08/22 13:50:00 EDT, Height, kg, 11/08/22 13:50:00 EDT, Dosing Weight Start Date: 11/14/22 Status: Ordered Start: 10-23-2022 Lasix 20 mg or al tablet Dose : 20 mg = 1 tab(s), Oral, BID, # 30 tab(s), 0 Refill(s) Start Date: 10/25/22 Status: Ordered hydroCHLOROthiazide 50 mg oral tablet (6 sources) Thiazide Diuretic Start: 07-11-2022 take 50 mg by mouth once daily Hydrochlorothiazide Active 50 MG PO DAILY October 23, 2022 12:00am hydrOXYzine pamoate 25 mg oral capsule (17 sources) Antihistamine Start: 08-27-2024 End: 12-25-2024 Vistaril 25 mg oral capsule Dose : 25 mg = 1 cap(s), Oral, QID, PRN as needed for anxiety, X 30 day(s), # 120 cap(s), 3 Refill(s), 12/25/24 12:39:00 PM EDT, Pharmacy: [facility], 182, cm, 06/12/24 13:53:00 EST, Height, kg, 06/12/24 13:53:00 EST, Dosing Weight Start Date: 08/27/24 Stop Date: 12/25/24 Status: Ordered Quantity: 120.0 Unit: cap(s) Repeat number: 4 Start: 08-08-2023 End: 06-09-2024 Vistaril 25 mg oral capsule Dose : 25 mg = 1 cap(s), Oral, QID, PRN as needed for anxiety, X 30 day(s), # 120 cap(s), 5 Refill(s), 06/09/24 4:10:00 PM EST, Pharmacy: [facility], 177.8, cm, 11/28/23 13:54:00 EDT, Height, kg, 11/28/23 13:54:00 EDT, Dosing Weight Start Date: 12/12/23 Stop Date: 06/09/24 Status: Ordered Quantity: 120.0 Unit: cap(s) Repeat number: 6 Start: 06-07-2023 Vistaril 25 mg oral capsule Dose : 25 mg = 1 cap(s), Oral, QID, PRN as needed for anxiety, # 40 cap(s), 0 Refill(s) Start Date: 06/07/23 Status: Ordered Start: 01-31-2023 End: 05-31-2023 hydrOXYzine hydrochloride 25 mg oral tablet Dose : 25 mg = 1 tab(s), Oral, QID, PRN as needed for anxiety, X 30 day(s), # 90 tab(s), 3 Refill(s), 05/31/23 2:41:00 PM EST, Pharmacy: [facility] #[id number], 175.3, cm, 12/23/22 6:37:00 EDT, Height, kg, 12/23/22 6:38:00 EDT, Dosing Weight Start Date: 01/31/23 Stop Date: 05/31/23 Status: Ordered lisinopril 40 mg oral tablet (7 sources) Angiotensin Converting Enzyme Inhibitor Start: 07-11-2022 take 40 mg by mouth once daily Lisinopril Active 40 MG PO DAILY October 23, 2022 12:00am losartan potassium 100 mg oral tablet (2 sources) Angiotensin 2 Receptor Kp Start: 12-23-2022 losartan 100 mg oral tablet Dose : 100 mg = 1 tab(s), Oral, qDay, # 30 tab(s), 6 Refill(s), Pharmacy: [facility] #[id number], 175.3, cm, 12/23/22 6:37:00 EDT, Height, kg, 12/23/22 6:38:00 EDT, Dosing Weight Start Date: 12/23/22 Status: Ordered metFORMIN hydrochloride 500 mg oral tablet (7 sources) Biguanide Start: 01-31-2023 MetFORMIN (Eqv-Fortamet) 500 mg oral tablet, EXTENDED RELEASE Dose : 500 mg = 1 tab(s), Oral, qDay, # 90 tab(s), 3 Refill(s), Pharmacy: [email or web address] #[id number], 175.3, cm, 12/23/22 6:37:00 EDT, Height, kg, 12/23/22 6:38:00 EDT, Dosing Weight Start Date: 01/31/23 Status: Ordered Start: 10-25-2022 MetFORMIN (Eqv -Fortamet) 500 mg oral tablet, EXTENDED RELEASE Dose : 500 mg = 1 tab(s), Oral, qDay, # 30 tab(s), 0 Refill(s) Start Date: 10/25/22 Status: Ordered Start: 10-23-2022 take 500 mg by mouth once daily in the evening Metformin Active 500 MG PO EVERY EVENING October 23, 2022 12:00am naproxen 250 mg oral tablet (3 sources) Nonsteroidal Anti-inflammatory Drug Start: 10-25-2022 naproxen 250 mg oral tablet Dose : 250 mg = 1 tab(s), Oral, BID, # 60 tab(s), 0 Refill(s) Start Date: 10/25/22 Status: Ordered Start: 07-11-2022 End: 07-12-2022 naproxen 500 mg oral tablet Dose : 500 mg = 1 tab(s), Oral, BID, # 14 tab(s), 0 Refill(s), 07/12/22 9:00:00 EST, Wrist sprain Start Date: 07/11/22 Stop Date: 07/12/22 Status: Ordered 24 hr nicotine 0.875 mg/hr transdermal system (3 sources) Cholinergic Nicotinic Agonist Start: 11-08-2022 End: 05-07-2023 apply 1 dose transdermal route once daily NicoDerm CQ 21 mg/24 hr transdermal patch Dose = 1 patch(es), Transdermal, Daily, X 30 day(s), # 30 EA, 5 Refill(s), Pharmacy: [email or web address] #[id number], 177, cm, 11/08/22 13:50:00 EDT, Height Start Date: 11/08/22 Stop Date: 05/07/23 Status: Ordered nystatin 409653 unt/ml topical cream (1 source) Polyene Antifungal Start: 01-12-2024 End: 02-01-2024 nystatin 100,000 units/g topical cream Apply 1 frida, Topical, BID, X 10 day(s), # 30 gram(s), 1 Refill(s), [id number], Cream, 177, cm, 01/12/24 9:42:00 EDT, Height, 148.6, kg, 01/12/24 9:42:00 EDT, Dosing Weight Start Date: 01/12/24 Stop Date: 02/01/24 Status: Ordered omeprazole 40 mg delayed release oral capsule (20 sources) Proton Pump Inhibitor Start: 09-19-2024 omeprazole 40 mg oral delayed release capsule Dose : 40 mg = 1 cap(s), Oral, BID, before a meal., # 180 cap(s), 0 Refill(s), [id number], 175, cm, 09/05/24 16:01:00 EDT, Height, kg, 09/05/24 16:01:00 EDT, Dosing Weight Start Date: 09/19/24 Status: Ordered Quantity: 180.0 Unit: cap(s) Repeat number: 1 Start: 12-12-2023 omeprazole 40 mg oral delayed release capsule Dose : 40 mg = 1 cap(s), Oral, BID, before a meal., # 180 cap(s), 3 Refill(s), Pharmacy: [facility], 177.8, cm, 11/28/23 13:54:00 EDT, Height, kg, 11/28/23 13:54:00 EDT, Dosing Weight Start Date: 12/12/23 Status: Ordered Quantity: 180.0 Unit: cap(s) Repeat number: 4 Start: 08-08-2023 omeprazole 40 mg oral delayed release capsule Dose : 40 mg = 1 cap(s), Oral, BID, before a meal., # 180 cap(s), 3 Refill(s), Pharmacy: [facility] #[id number], 178.5, cm, 08/08/23 13:32:00 EDT, Height, kg, 08/08/23 13:32:00 EDT, Dosing Weight Start Date: 08/08/23 Status: Ordered Start: 05-26-2023 omeprazole 40 mg oral delayed release capsule Dose : 40 mg = 1 cap(s), Oral, BID, before a meal. sent in absence of PCP, # 60 cap(s), 0 Refill(s), Pharmacy: [email or web address] #[id number], 152.8, cm, 05/12/23 11:14:00 EST, Height, kg, 05/12/23 11:14:00 EST, Dosing Weight Start Date: 05/26/23 Status: Ordered Start: 03-15-2023 End: 05-14-2023 omeprazole 40 mg oral delaye d release capsule Dose : 40 mg = 1 cap(s), Oral, BID, before a meal, # 60 cap(s), 1 Refill(s), Pharmacy: [email or web address] #[id number], 175.9, cm, 02/15/23 13:56:00 EDT, Height, kg, 02/15/23 13:56:00 EDT, Dosing Weight Start Date: 03/15/23 Stop Date: 05/14/23 Status: Ordered Start: 10-23-2022 omeprazole 40 mg oral delayed release capsule Dose : 40 mg = 1 cap(s), Oral, qDay, before a meal, # 30 cap(s), 0 Refill(s) Start Date: 10/25/22 Status: Ordered penicillin v potassium 500 m g oral tablet (1 source) Start: 05-14-2024 End: 05-24-2024 penicillin V potassium 500 m g oral tablet Dose : 500 mg = 1 tab(s), Oral, q8h, X 10 day(s), # 30 tab(s), 0 Refill(s), 05/24/24 2:36:00 PM EST, Pharmacy: [facility]/pharmacy #[id number], 175, cm, 05/14/24 13:59:00 EST, Height, 143.9, kg, 05/14/24 13:57:00 EST, Dosing Weight Start Date: 05/14/24 Stop Date: 05/24/24 Status: Ordered Quantity: 30.0 Unit: tab(s) Repeat number: 1 polyethylene glycol 3350 wit h electrolytes oral powder for reconstitution (2 sources) Start: 02-15-2023 polyethylene g lycol 3350 with electrolytes oral powder for reconstitution See Instructions, As directed by provider at [facility]., # 1 EA, 0 Refill(s), Pharmacy: [facility] #[id number], Colon cancer screening, 175.9, cm, 02/15/23 13:56:00 EDT, Height, kg, 02/15/23 13:56:00 EDT, Dosing Weight Start Date: 02/15/23 Status: Ordered potassium chloride 20 meq or al tablet (11 sources) Start: 10-04-2024 Potassium Chlo ride (Eqv-K-Tab) 20 mEq oral tablet, extended release Dose : 20 mEq = 1 tab(s), Oral, qDay, Take with food, # 90 tab(s), 3 Refill(s), Pharmacy: [facility] #[id number], 177.8, cm, 10/02/24 6:28:00 EDT, Height, kg, 10/02/24 6:28:00 EDT, Dosing Weight Start Date: 10/04/24 Status: Ordered Quantity: 90.0 Unit: tab(s) Repeat number: 4 Start: 02-09-2024 Potassium Chlo ride (Eqv-K-Tab) 10 mEq oral tablet, extended release Dose : 10 mEq = 1 tab(s), Oral, qDay, # 30 tab(s), 3 Refill(s), Pharmacy: [facility] #[id number], 175, cm, 02/09/24 15:58:00 EDT, Height, kg, 02/09/24 15:58:00 EDT, Dosing Weight Start Date: 02/09/24 Status: Ordered Quantity: 30.0 Unit: tab(s) Repeat number: 4 Start: 10-25-2022 End: 11-24-2022 Potassium Chloride (Eqv-K-Ta b) 10 mEq oral tablet, extended release Dose : 10 mEq = 1 tab(s), Oral, qDay, # 30 tab(s), 0 Refill(s) Start Date: 10/25/22 Stop Date: 11/24/22 Status: Ordered pravastatin sodium 40 mg oral tablet (5 sources) HMG-CoA Reductase Inhibitor Start: 08-29-2024 pravastatin 40 mg or al tablet Dose : 40 mg = 1 tab(s), Oral, qDay, # 30 tab(s), 0 Refill(s) Start Date: 08/29/24 Status: Ordered Quantity: 30.0 Unit: tab(s) Repeat number: 1 Start: 02-13-2024 pravastatin 40 mg oral tablet Dose : 40 mg = 1 tab(s), Oral, Daily, # 100 tab(s), 3 Refill(s), Pharmacy: [facility], 175, cm, 02/13/24 15:03:00 EDT, Height, kg, 02/13/24 15:03:00 EDT, Dosing Weight Start Date: 02/13/24 Status: Ordered predniSONE 20 mg oral tablet (1 source) Start: 06-13-2023 End: 06-18-2023 predniSONE 20 mg oral tablet Dose : 40 mg = 2 tab(s), Oral, qDay, X 5 day(s), # 10 tab(s), 0 Refill(s), 06/18/23 1:02:00 AM EST Start Date: 06/13/23 Stop Date: 06/18/23 Status: Ordered rivaroxaban 20 mg oral tablet (20 sources) Factor Xa Inhibitor Start: 10-04-2024 Xarelto 20 mg oral tablet Dose : 20 mg = 1 tab(s), Oral, qHS, # 90 tab(s), 11 Refill(s), Pharmacy: [facility]/pharmacy #[id number], 177.8, cm, 10/02/24 6:28:00 EDT, Height, 140.3, kg, 10/02/24 6:28:00 EDT, Dosing Weight Start Date: 10/04/24 Status: Ordered Quantity: 90.0 Unit: tab(s) Repeat number: 12 Start: 12-12-2023 Xarelto 20 mg oral tablet Dose : 20 mg = 1 tab(s), Oral, qHS, # 90 tab(s), 3 Refill(s), Pharmacy: [facility], 177.8, cm, 11/28/23 13:54:00 EDT, Height, 151.4, kg, 11/28/23 13:54:00 EDT, Dosing Weight Start Date: 12/12/23 Status: Ordered Quantity: 90.0 Unit: tab(s) Repeat number: 4 Start: 08-08-2023 Xarelto 20 mg oral tablet Dose : 20 mg = 1 tab(s), Oral, qHS, # 90 tab(s), 3 Refill(s), Pharmacy: [facility] #[id number], 178.5, cm, 08/08/23 13:32:00 EDT, Height, 156.7, kg, 08/08/23 13:32:00 EDT, Dosing Weight Start Date: 08/08/23 Status: Ordered Start: 10-23-2022 End: 02-06-2023 Xarelto 20 mg oral tablet Do se : 20 mg = 1 tab(s), Oral, qHS, # 90 tab(s), 3 Refill(s), Pharmacy: [facility] #[id number], 175.3, cm, 12/23/22 6:37:00 EDT, Height, 144, kg, 12/23/22 6:38:00 EDT, Dosing Weight Start Date: 01/31/23 Status: Ordered rosuvastatin calcium 20 mg oral tablet (3 sources) HMG-CoA Reductase Inhibitor Start: 12-12-2023 rosuvastatin 20 mg oral tablet Dose : 20 mg = 1 tab(s), Oral, Daily, # 100 tab(s), 3 Refill(s), Pharmacy: [facility], 177.8, cm, 11/28/23 13:54:00 EDT, Height, kg, 11/28/23 13:54:00 EDT, Dosing Weight Start Date: 12/12/23 Status: Ordered sacubitril 49 mg / valsartan 51 mg oral tablet (8 sources) Angiotensin 2 Receptor Kp Start: 08-08-2023 End: 12-06-2024 take 1 tablet by mouth twice daily sacubitril-valsart an 49 mg-51 mg oral tablet Dose = 1 tab(s), Oral, BID, # 180 tab(s), 3 Refill(s), Pharmacy: [facility], 177.8, cm, 11/28/23 13:54:00 EDT, Height, kg, 11/28/23 13:54:00 EDT, Dosing Weight Start Date: 12/12/23 Stop Date: 12/06/24 Status: Ordered Start: 03-22-2023 take 1 tablet by brandon th twice daily sacubitril-valsartan 49 mg-51 mg oral tablet Dose = 1 tab(s), Oral, BID, # 60 tab(s), 3 Refill(s), [facility]acy: [facility] #[id number], 175.3, cm, 03/22/23 13:31:00 EDT, Height, kg, 03/22/23 13:31:00 EDT, Dosing Weight Start Date: 03/22/23 Status: Ordered spironolactone 25 mg oral tablet (19 sources) Aldosterone Antagonist Start: 08-08-2023 End: 12-06-2024 spironolactone 25 mg oral tablet Dose : 25 mg = 1 tab(s), Oral, qDay, # 90 tab(s), 3 Refill(s), Pharmacy: [facility], 177.8, cm, 11/28/23 13:54:00 EDT, Height, kg, 11/28/23 13:54:00 EDT, Dosing Weight Start Date: 12/12/23 Stop Date: 12/06/24 Status: Ordered Quantity: 90.0 Unit: tab(s) Repeat number: 4 Start: 02-07-2023 spironolactone 25 mg oral tablet Dose : 25 mg = 1 tab(s), Oral, qDay, # 60 tab(s), 5 Refill(s), Pharmacy: [facility] #[id number], 175.3, cm, 12/23/22 6:37:00 EDT, Height, kg, 12/23/22 6:38:00 EDT, Dosing Weight Start Date: 02/07/23 Status: Ordered Start: 11-24-2022 spironolactone 25 mg oral tablet Dose : 25 mg = 1 tab(s), Oral, qDay, # 60 tab(s), 0 Refill(s), Pharmacy: [facility] #[id number], 177, cm, 11/08/22 13:50:00 EDT, Height, kg, 11/08/22 13:50:00 EDT, Dosing Weight Start Date: 11/24/22 Status: Ordered Start: 11-04-2022 spironolactone 25 mg oral tablet Dose : 25 mg = 1 tab(s), Oral, BIDM, # 60 tab(s), 0 Refill(s), Pharmacy: [facility] #[id number], 175.3, cm, 11/04/22 8:52:00 EDT, Height Start Date: 11/04/22 Status: Ordered Symbicort 80 mcg-4.5 mcg/inh Inhaler (9 sources) Start: 07-29-2024 End: 07-24-2025 take 1 dose by inhalation twice daily Symbicort 80 mcg-4.5 mcg/inh Inhaler Dose = 2 puff(s), Inhalation, BID, # 30.6 gram(s), 3 Refill(s), Pharmacy: [facility], 182, cm, 06/12/24 13:53:00 EST, Height, kg, 06/12/24 13:53:00 EST, Dosing Weight Start Date: 07/29/24 Stop Date: 07/24/25 Status: Ordered Quantity: 30.6 Unit: g Repeat number: 4 Start: 04-08-2024 End: 08-06-2024 take 1 dose by inhalation twice daily Symbicort 80 mcg-4.5 mcg/inh Inhaler Dose = 2 puff(s), Inhalation, BID, # 10.2 gram(s), 3 Refill(s), Pharmacy: [facility], 175, cm, 04/01/24 13:03:00 EST, Height, kg, 04/01/24 13:03:00 EST, Dosing Weight Start Date: 04/08/24 Stop Date: 08/06/24 Status: Ordered Quantity: 10.2 Unit: g Repeat number: 4 Start: 12-12-2023 End: 04-10-2024 take 1 dose by inhalation twice daily Symbicort 80 mcg-4.5 mcg/inh Inhaler Dose = 2 puff(s), Inhalation, BID, # 10.2 gram(s), 3 Refill(s), Pharmacy: [facility], 177.8, cm, 11/28/23 13:54:00 EDT, Height, kg, 11/28/23 13:54:00 EDT, Dosing Weight Start Date: 12/12/23 Stop Date: 04/10/24 Status: Ordered timolol 2.5 mg/ml ophthalmic solution (9 sources) beta-Adrenergic Kp Start: 10-25-2022 take 1 dose into the eye(s) twice daily timolol maleate 0.25% ophthalmic solution Dose = 1 drop(s), Eyes, both, BID, # 5 mL, 0 Refill(s) Start Date: 10/25/22 Status: Ordered Start: 10-23-2022 Timolol Maleat e Active 1 DRP EACH EYE DAILY October 23, 2022 12:00am traZODone hydrochloride 100 mg oral tablet (20 sources) Serotonin Reuptake Inhibitor Start: 10-09-2024 traZODone 100 mg ora l tablet Dose : 100 mg = 1 tab(s), Oral, qHS, # 90 tab(s), 3 Refill(s), Pharmacy: [facility]/pharmacy #[id number], 177.8, cm, 10/09/24 13:44:00 EDT, Height, kg, 10/09/24 13:44:00 EDT, Dosing Weight Start Date: 10/09/24 Status: Ordered Quantity: 90.0 Unit: tab(s) Repeat number: 4 Start: 09-19-2024 traZODone 100 mg oral tablet Dose : 100 mg = 1 tab(s), Oral, qHS, # 90 tab(s), 2 Refill(s), Pharmacy: [facility]/pharmacy #[id number], 175, cm, 09/05/24 16:01:00 EDT, Height, kg, 09/05/24 16:01:00 EDT, Dosing Weight Start Date: 09/19/24 Status: Ordered Quantity: 90.0 Unit: tab(s) Repeat number: 3 Start: 12-12-2023 traZODone 100 mg oral tablet Dose : 100 mg = 1 tab(s), Oral, qHS, # 90 tab(s), 3 Refill(s), Pharmacy: [facility], 177.8, cm, 11/28/23 13:54:00 EDT, Height, kg, 11/28/23 13:54:00 EDT, Dosing Weight Start Date: 12/12/23 Status: Ordered Quantity: 90.0 Unit: tab(s) Repeat number: 4 Start: 08-08-2023 traZODone 100 mg oral tablet Dose : 100 mg = 1 tab(s), Oral, qHS, # 90 tab(s), 3 Refill(s), Pharmacy: [facility] #[id number], 178.5, cm, 08/08/23 13:32:00 EDT, Height, kg, 08/08/23 13:32:00 EDT, Dosing Weight Start Date: 08/08/23 Status: Ordered Start: 12-13-2022 End: 04-12-2023 traZODone 100 mg oral tablet Dose : 100 mg = 1 tab(s), Oral, qHS, # 90 tab(s), 3 Refill(s), Pharmacy: [facility] #[id number], 175.3, cm, 12/23/22 6:37:00 EDT, Height, kg, 12/23/22 6:38:00 EDT, Dosing Weight Start Date: 01/31/23 Status: Ordered Start: 11-08-2022 End: 02-06-2023 traZODone 50 mg oral tablet Dose : 50 mg = 1 tab(s), Oral, qHS, # 30 tab(s), 2 Refill(s), Pharmacy: [facility] #[id number], 177, cm, 11/08/22 13:50:00 EDT, Height, kg, 11/08/22 13:50:00 EDT, Dosing Weight Start Date: 11/08/22 Stop Date: 02/06/23 Status: Ordered Start: 10-25-2022 End: 11-01-2022 traZODone 50 mg oral tablet Dose : 50 mg = 1 tab(s), Oral, qHS, # 7 tab(s), 0 Refill(s) Start Date: 10/25/22 Stop Date: 11/01/22 Status: Ordered triamcinolone acetonide 5 mg/ml topical cream (1 source) Corticosteroid Start: 12-13-2022 End: 12-27-2022 triamcinolone 0.5% topical cream Apply 1 frida, Topical, BID, X 14 day(s), # 30 gram(s), 0 Refill(s), Pharmacy: [facility] #[id number], Cream, 175.3, cm, 12/13/22 14:43:00 EDT, Height, 145.4 Start Date: 12/13/22 Stop Date: 12/27/22 Status: Ordered Completed/Discontinued Medications Medication Drug Class(es) Dates Sig (Normalized) Sig (Original) 0.25 MG, 0.5 MG Dose 3 ML semaglutide 0.68 MG/ML Pen Injector (3 sources) Start: 08-08-2023 End: 12-06-2023 inject 0.5 mg by subcutaneous injection every week semaglutide 2 mg/3 mL (0.25 mg or 0.5 mg dose) subcutaneous solution Dose : 0.25 mg =, Subcutaneous, qWeek, rotate injection sites, # 4 EA, 3 Refill(s), generic [email or web address], Pharmacy: [email or web address] #[id number], 178.5, cm, 08/08/23 13:32:00 EDT, Height, kg, 08/08/23 13:32:00 EDT, Dosing Weight Start Date: 08/08/23 Stop Date: 12/06/23 Status: Ordered brimonidine tartrate 1 mg/ml ophthalmic solution (9 sources) alpha-Adrenergic Agonist Start: 10-25-2022 Alphagan P 0.1% ophthalmic solution Dose = 1 drop(s), Eyes, both, q8h, # 15 mL, 0 Refill(s) Start Date: 10/25/22 Status: Ordered Start: 10-23-2022 take 0.15 drop(s) in to the eye(s) at bedtime Brimonidine (Alphagan P) 0.15 % Drops Active 1 DRP EACH EYE AT BEDTIME October 23, 2022 12:00am Metoprolol (20 sources) beta-Adrenergic Kp Start: 10-23-2024 End: 10-23-2024 take 1 tablet by mouth in the evening Toprol-XL Start: 10/23/24 5:00:00 PM EDT, Dose = 100 mg, = 1 tab(s), Oral, 10/17/24 10:12:00 EDT Start Date: 10/23/24 Stop Date: 10/23/24 Status: Completed Repeat number: 1 Start: 10-23-2024 End: 10-23-2024 take 1 tablet by mouth in the morning Toprol-XL Start: 10/23/24 8:00:00 AM EDT, Dose = 100 mg, = 1 tab(s), Oral, 10/17/24 10:12:00 EDT Start Date: 10/23/24 Stop Date: 10/23/24 Status: Completed Repeat number: 1 Start: 10-04-2024 End: 10-04-2024 take 1 tablet by mouth in the evening Toprol-XL Start: 10/04/24 5:00:00 PM EDT, Dose = 100 mg, = 1 tab(s), Oral, 0, 10/02/24 10:38:00 EDT Start Date: 10/04/24 Stop Date: 10/04/24 Status: Completed Repeat number: 1 Start: 10-04-2024 End: 10-04-2024 take 1 tablet by mouth in the morning Toprol-XL Start: 10/04/24 8:00:00 AM EDT, Dose = 100 mg, = 1 tab(s), Oral, 0, 10/02/24 10:38:00 EDT Start Date: 10/04/24 Stop Date: 10/04/24 Status: Completed Repeat number: 1 Start: 10-03-2024 End: 10-03-2024 take 1 tablet by mouth in the evening Toprol-XL Start: 10/03/24 5:00:00 PM EDT, Dose = 100 mg, = 1 tab(s), Oral, 0, 10/02/24 10:38:00 EDT Start Date: 10/03/24 Stop Date: 10/03/24 Status: Completed Repeat number: 1 Start: 02-01-2024 End: 02-01-2024 Toprol-XL Start: 02/01/24 5:00 :00 PM EDT, Dose = 100 mg, = 1 tab(s), Oral, 0, 01/31/24 8:44:00 EDT Start Date: 02/01/24 Stop Date: 02/01/24 Status: Completed Start: 02-01-2024 End: 02-01-2024 Toprol-XL Start: 02/01/24 8:00 :00 AM EDT, Dose = 100 mg, = 1 tab(s), Oral, 0, 01/31/24 8:44:00 EDT Start Date: 02/01/24 Stop Date: 02/01/24 Status: Completed Start: 08-08-2023 End: 12-18-2024 Toprol-XL 100 mg oral tablet , extended release Dose : 100 mg = 1 tab(s), Oral, BID, do not crush or chew, # 180 tab(s), 0 Refill(s), Pharmacy: [facility]/pharmacy #[id number], Shortness of breath, 175, cm, 09/05/24 16:01:00 EDT, Height, kg, 09/05/24 16:01:00 EDT, Dosing Weight Start Date: 09/19/24 Stop Date: 12/18/24 Status: Ordered Quantity: 180.0 Unit: tab(s) Repeat number: 1 Indications: Shortness of breath; Start: 06-09-2023 End: 06-09-2023 Toprol-XL Start: 06/09/23 5:0 0:00 PM EST, Dose = 100 mg, = 1 tab(s), Oral, 0, 06/07/23 16:12:00 EST Start Date: 06/09/23 Stop Date: 06/09/23 Status: Completed Start: 06-09-2023 End: 06-09-2023 Toprol-XL Start: 06/09/23 8:0 0:00 AM EST, Dose = 100 mg, = 1 tab(s), Oral, 0, 06/07/23 16:12:00 EST Start Date: 06/09/23 Stop Date: 06/09/23 Status: Completed Start: 06-08-2023 End: 06-08-2023 Toprol-XL Start: 06/08/23 5:0 0:00 PM EST, Dose = 100 mg, = 1 tab(s), Oral, 0, 06/07/23 16:12:00 EST Start Date: 06/08/23 Stop Date: 06/08/23 Status: Completed Start: 03-22-2023 End: 03-29-2023 Toprol-XL 100 mg oral tablet , extended release Dose : 100 mg = 1 tab(s), Oral, BID, do not crush or chew, # 60 tab(s), 3 Refill(s), [facility]acy: [facility] #[id number], Shortness of breath, 175.3, cm, 03/22/23 13:31:00 EDT, Height, kg, 03/22/23 13:31:00 EDT, Dosing Weight Start Date: 03/22/23 Stop Date: 03/29/23 Status: Ordered Start: 12-23-2022 Toprol-XL 50 m g oral tablet, extended release Dose : 50 mg = 1 tab(s), Oral, BID, # 60 tab(s), 6 Refill(s), [facility]: [facility] #[id number], 175.3, cm, 12/23/22 6:37:00 EDT, Height, kg, 12/23/22 6:38:00 EDT, Dosing Weight Start Date: 12/23/22 Status: Ordered Start: 10-23-2022 Metoprolol Tar trate 25 mg oral tablet Dose : 25 mg = 1 tab(s), Oral, BID, # 180 tab(s), 0 Refill(s) Start Date: 10/25/22 Status: Ordered tiZANidine 2 mg oral tablet (9 sources) Central alpha-2 Adrenergic Agonist Start: 08-26-2024 End: 09-23-2024 tiZANidine 2 mg oral tablet Dose : 2 mg = 1 tab(s), Oral, q8h, PRN as needed for muscle spasm, # 21 tab(s), 3 Refill(s), Pharmacy: [facility], 182, cm, 06/12/24 13:53:00 EST, Height, kg, 06/12/24 13:53:00 EST, Dosing Weight Start Date: 08/26/24 Stop Date: 09/23/24 Status: Ordered Quantity: 21.0 Unit: tab(s) Repeat number: 4 Start: 03-04-2024 tiZANidine 2 m g oral tablet Dose : 2 mg = 1 tab(s), Oral, q8h, PRN as needed for muscle spasm, # 90 tab(s), 2 Refill(s), Pharmacy: [facility], 175, cm, 02/13/24 15:03:00 EDT, Height, kg, 02/13/24 15:03:00 EDT, Dosing Weight Start Date: 03/04/24 Status: Ordered Quantity: 90.0 Unit: tab(s) Repeat number: 3 Start: 01-08-2024 tiZANidine 2 m g oral tablet Dose : 2 mg = 1 tab(s), Oral, q8h, PRN as needed for muscle spasm, # 90 tab(s), 2 Refill(s), Pharmacy: [facility], 177.8, cm, 11/28/23 13:54:00 EDT, Height, kg, 11/28/23 13:54:00 EDT, Dosing Weight Start Date: 01/08/24 Status: Ordered Problems Active Problems Problem Classification Problem Date Documented Date Episodic/Chronic Abdominal pain (5 sources) Right flank pain 11-07-2023 Episodic Acute and unspecified renal failure (1 source) Acute renal failure syndrome; 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: [Acute kidney failure, unspecified] Episodic Allergic reactions (18 sources) Atopic dermatitis 12-13-2022 Chronic Anxiety disorders (20 sources) Anxiety; 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: [Generalized anxiety disorder] 11-08-2022 Chronic Asthma (20 sources) Exacerbation of asthma; 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: [Moderate asthma] 06-20-2023 Chronic Cardiac dysrhythmias (20 sources) Atrial fibrillation; 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: [Unspecified atrial fibrillation] Onset: 10-16-2024 10-23-2022 Chronic Cardiac dysrhythmias (3 sources) Tachyarrhythmia ; 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: [Tachycardia, unspecified] Onset: 10-02-2024 Episodic Chronic obstructive pulmonary disease and bronchiectasis (3 sources) Acute exacerbation of chronic obstructive airways disease 08-13-2024 Chronic Chronic obstructive pulmonary disease and bronchiectasis (3 sources) Bronchitis 08-13-2024 Episodic Conduction disorders (1 source) Left anterior fascicular block; 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: [Left anterior fascicular block] Chronic Congestive heart failure; nonhypertensive (8 sources) Acute exacerbation of chronic congestive heart failure; 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: [Heart failure, unspecified] Onset: 10-02-2024 10-23-2022 Chronic Diabetes mellitus without complication (20 sources) Diabetes mellitus; 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: [Type 2 diabetes mellitus] Onset: 08-08-2023 11-04-2022 Chronic Diabetes mellitus without complication (15 sources) Prediabetes 12-13-2022 Episodic Disorders of lipid metabolism (6 sources) Hyperlipidemia 11-07-2023 Chronic Disorders of teeth and jaw (6 sources) Periapical abscess; 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: [Periapical abscess without sinus] Onset: 07-15-2022 Episodic Esophageal disorders (1 source) Gastroesophageal reflux disease without esophagitis; 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: [Gastro-esophageal reflux disease without esophagitis] Chronic Essential hypertension (20 sources) Hypertensive disorder; 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: [Essential (primary) hypertension] Onset: 08-08-2023 11-04-2022 Chronic Fluid and electrolyte disorders (4 sources) Acute hypokalemia; 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: [Hypokalemia] Onset: 10-27-2022 10-23-2022 Episodic Fracture of lower limb (3 sources) Unspecified fracture of shaft of left fibula, initial encounter for closed fracture; 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: [Unspecified fracture of shaft of unspecified fibula, initial encounter for closed fracture] Onset: 08-29-2024 Episodic Fracture of lower limb (2 sources) Displaced bimalleolar fracture of right lower leg, initial encounter for closed fracture; 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: [Displaced bimalleolar fracture of right lower leg, initial encounter for closed fracture] Onset: 10-16-2024 Episodic Hypertension with complications and secondary hypertension (4 sources) Hypertensive heart disease; 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: [Hypertensive heart disease without heart failure] Onset: 10-02-2024 Chronic Mood disorders (3 sources) Depressive disorder 09-05-2024 Chronic Nonspecific chest pain (6 sources) Chest pain; 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: [Chest pain, unspecified] Onset: 10-27-2022 10-23-2022 Episodic Other aftercare (1 source) Drug monitoring done; 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: [Encounter for therapeutic drug level monitoring] Episodic Other aftercare (2 sources) Long-term current use of anticoagulant; 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: [penitentiary (current) use of anticoagulants] Episodic Other aftercare (1 source) 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; 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: [penitentiary (current) use of anticoagulants] Onset: 10-16-2024 Episodic Other and ill-defined heart disease (3 sources) Left ventricular hypertrophy 06-12-2024 Chronic Other circulatory disease (2 sources) H/O: hypertension; 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: [Personal history of other diseases of the circulatory system] 10-23-2022 Episodic Other circulatory disease (1 source) Low blood pressure; 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: [Hypotension, unspecified] Episodic Other connective tissue disease (1 source) Foot pain; 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: [Pain in unspecified foot] Onset: 10-27-2022 Episodic Other connective tissue disease (1 source) Pain in upper limb; 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: [Pain in arm, unspecified] Onset: 08-09-2023 Episodic Other injuries and conditions due to external causes (1 source) Unspecified injury of left lower leg, initial encounter; 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: [Unspecified injury of left lower leg, initial encounter] Onset: 08-29-2024 Episodic Other lower respiratory disease (6 sources) Dyspnea; 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: [Shortness of breath] Onset: 06-07-2023 Episodic Other lower respiratory disease (9 sources) Wheezing 08-08-2023 Episodic Other lower respiratory disease (3 sources) Cough 08-27-2024 Episodic Other lower respiratory disease (1 source) Shortness of breath; 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: [Shortness of breath] Onset: 10-02-2024 Episodic Other nervous system disorders (1 source) Postoperative pain ; 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: [Other acute postprocedural pain] Onset: 10-17-2024 Episodic Other nervous system disorders (1 source) Other acute postprocedural pain; 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: [Other acute postprocedural pain] Onset: 10-16-2024 Episodic Other non-traumatic joint disorders (16 sources) Knee pain 02-07-2023 Episodic Other nutritional; endocrine; and metabolic disorders (20 sources) Body mass index 40+ - severely obese; 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: [Body mass index (BMI) 40.0-44.9, adult] 11-08-2022 Chronic Other nutritional; endocrine; and metabolic disorders (20 sources) Morbid obesity; 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: [Morbid (severe) obesity due to excess calories] 11-04-2022 Chronic Other nutritional; endocrine; and metabolic disorders (1 source) Body mass index (BMI) 40.0-44.9, adult; 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: [Body mass index [BMI] 40.0-44.9, adult] Onset: 10-02-2024 Chronic Other nutritional; endocrine; and metabolic disorders (1 source) Morbid (severe) obesity due to excess calories; 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: [Morbid (severe) obesity due to excess calories] Onset: 10-02-2024 Chronic Other nutritional; endocrine; and metabolic disorders (2 sources) History of diabetes mellitus type 2; 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: [Personal history of other endocrine, nutritional and metabolic disease] 10-23-2022 Episodic Other nutritional; endocrine; and metabolic disorders (1 source) H/O: Disorder; 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: [Personal history of other endocrine, nutritional and metabolic disease] Episodic Other skin disorders (2 sources) Mass of upper limb 02-13-2024 Episodic Other upper respiratory infections (2 sources) Acute pharyngitis, unspecified; 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: [Acute sinusitis, unspecified] Onset: 07-05-2022 Episodic Lian-; endo-; and myocarditis; cardiomyopathy (except that caused by tuberculosis or sexually transmitted disease) (20 sources) Cardiomyopathy; 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: [Cardiomyopathy, unspecified] Onset: 10-02-2024 03-22-2023 Chronic Lian-; endo-; and myocarditis; cardiomyopathy (except that caused by tuberculosis or sexually transmitted disease) (1 source) Pericardial effusion - noninflammatory; 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: [Other pericardial effusion (noninflammatory)] Episodic Pulmonary heart disease (2 sources) Pulmonary hypertension; 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: [Pulmonary hypertension, unspecified] Onset: 10-02-2024 Chronic Residual codes; unclassified (20 sources) Obstructive sleep apnea syndrome; 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: [Obstructive sleep apnea (adult) (pediatric)] 12-13-2022 Chronic Residual codes; unclassified (1 source) Obstructive sleep apnea (adult) (pediatric); 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: [Obstructive sleep apnea (adult) (pediatric)] Onset: 10-02-2024 Chronic Residual codes; unclassified (19 sources) Insomnia 11-08-2022 Episodic Shock (1 source) Shock; 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: [Other shock] Episodic Sprains and strains (1 source) Sprain of wrist; 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: [Unspecified sprain of unspecified wrist, initial encounter] Onset: 07-11-2022 Episodic Substance-related disorders (19 sources) Nicotine dependence 11-08-2022 Chronic Superficial injury; contusion (1 source) Contusion of right chest wall; 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: [Contusion of right front wall of thorax, initial encounter] Onset: 05-05-2023 Episodic Syncope (8 sources) Syncope and collapse; 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: [Syncope and collapse] Episodic Unclassified (20 sources) Patient encounter status 11-08-2022 Unclassified (1 source) Acute cough; 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: [Acute cough] Onset: 10-11-2023 Unclassified (4 sources) Statin not tolerated (context-dependent category) 05-14-2024 Unclassified (1 source) Other persistent atrial fibrillation; 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: [Other persistent atrial fibrillation] Onset: 10-02-2024 Past or Other Problems Problem Classification Problem Date Documented Da te Episodic/Chronic Other connective tissue disease (1 source) Cramp and spasm; 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: [Cramp and spasm] Onset: 01-12-2022 Episodic Other non-traumatic joint disorders (1 source) Pain in right elbow; 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: [Pain in right elbow] Onset: 04-12-2022 Episodic Other skin disorders (2 sources) Disorder of the skin and subcutaneous tissue, unspecified; 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: [Disorder of the skin and subcutaneous tissue, unspecified] Onset: 03-25-2024 Episodic Results Test Name Value Interpretation Reference Range Facility Basic Metabolic Profile (BMP )on 10-28-2024 BUN/CRE 13.8 RATIO Normal 10-20 [facility] Comment on above: Order Comment: 210 Performed By: #### L 506.1001, L500.4100, L501.1400, L100.0100, L500.2500, L501.9520, L501.5200 #### [facility] [address] [place], [address] Calcium [Mass/Vol] 8.9 mg/dL Normal 7.6-11.0 [facility] Comment on above: Order Comment: 210 Performed By: #### L 506.1001, L500.4100, L501.1400, L100.0100, L500.2500, L501.9520, L501.5200 #### [facility] [address] [place], [address] Chloride [Moles/Vol] 98 mmol/L Normal 98-108 [facility] Comment on above: Order Comment: 210 Performed By: #### L 506.1001, L500.4100, L501.1400, L100.0100, L500.2500, L501.9520, L501.5200 #### [facility] [address] [place], [address] CO2 [Moles/Vol] 27.1 mmol/L Normal 21.0-32.0 [facility] Comment on above: Order Comment: 210 Performed By: #### L 506.1001, L500.4100, L501.1400, L100.0100, L500.2500, L501.9520, L501.5200 #### [facility] [address] [place], [address] Creatinine [Mass/Vol] 0.74 mg/dL Normal 0.70-1.20 [facility] Comment on above: Order Comment: 210 Performed By: #### L 506.1001, L500.4100, L501.1400, L100.0100, L500.2500, L501.9520, L501.5200 #### [facility] [address] [place], [address] GAP 10 Normal 5-15 [facility] Comment on above: Order Comment: 210 Performed By: #### L 506.1001, L500.4100, L501.1400, L100.0100, L500.2500, L501.9520, L501.5200 #### [facility] [address] [place], [address] GFR/1.73 sq M.predicted among non-blacks MDRD (S/P/Bld) [Vol rate/Area] 108 mL/min/{1.73_m2} Normal >60 [facility] Comment on above: Order Comment: 210 Result Comment: mL/m in/1.73m2 CKD-EPI Creatinine Equation (2020) Performed By: #### L 506.1001, L500.4100, L501.1400, L100.0100, L500.2500, L501.9520, L501.5200 #### [facility] [address] [place], [address] Glucose [Mass/Vol] 108 mg/dL High 70-99 [facility] Comment on above: Order Comment: 210 Performed By: #### L 506.1001, L500.4100, L501.1400, L100.0100, L500.2500, L501.9520, L501.5200 #### [facility] [address] [place], [address] Potassium [Moles/Vol] 4.1 mmol/L Normal 3.3-5.1 [facility] Comment on above: Order Comment: 210 Performed By: #### L 506.1001, L500.4100, L501.1400, L100.0100, L500.2500, L501.9520, L501.5200 #### [facility] [address] [place], [address] Sodium [Moles/Vol] 135 mmol/L Normal 133-145 [facility] Comment on above: Order Comment: 210 Performed By: #### L 506.1001, L500.4100, L501.1400, L100.0100, L500.2500, L501.9520, L501.5200 #### [facility] [address] [place], [address] Urea nitrogen [Mass/Vol] 10 mg/dL Normal 4-19 [facility] Comment on above: Order Comment: 210 Performed By: #### L 506.1001, L500.4100, L501.1400, L100.0100, L500.2500, L501.9520, L501.5200 #### [facility] [address] [place], [address] CBC W/Diff, Automatedon 06-0 2-2024 Absolute Lymph 1.07 X10 3/uL Normal 0.83-4.51 [facility] Comment on above: Order Comment: 210 Performed By: #### L 506.1001, L500.4100, L501.1400, L100.0100, L500.2500, L501.9520, L501.5200 #### [facility] [address] [place], [address] Absolute Neut 2.8 X10 3/uL Normal 2.0-7.7 [facility] Comment on above: Order Comment: 210 Performed By: #### L 506.1001, L500.4100, L501.1400, L100.0100, L500.2500, L501.9520, L501.5200 #### [facility] [address] [place], [address] Basophils/100 WBC (Bld) 0.7 % Normal 0-1 [facility] Comment on above: Order Comment: 210 Performed By: #### L 506.1001, L500.4100, L501.1400, L100.0100, L500.2500, L501.9520, L501.5200 #### [facility] [address] [place], [address] Eosinophils/100 WBC (Bld) 2.0 % Normal 0-5 [facility] Comment on above: Order Comment: 210 Performed By: #### L 506.1001, L500.4100, L501.1400, L100.0100, L500.2500, L501.9520, L501.5200 #### [facility] [address] [place], [address] Erythrocyte distribution width (RBC) [Ratio] 15.9 % High 11.6-14.6 [facility] Comment on above: Order Comment: 210 Performed By: #### L 506.1001, L500.4100, L501.1400, L100.0100, L500.2500, L501.9520, L501.5200 #### [facility] [address] [place], [address] Hematocrit (Bld) [Volume fraction] 41.2 % Normal 40-54 [facility] Comment on above: Order Comment: 210 Performed By: #### L 506.1001, L500.4100, L501.1400, L100.0100, L500.2500, L501.9520, L501.5200 #### [facility] [address] [place], [address] Hemoglobin (Bld) [Mass/Vol] 13.0 g/dL Normal 13.0-16.5 [facility] Comment on above: Order Comment: 210 Performed By: #### L 506.1001, L500.4100, L501.1400, L100.0100, L500.2500, L501.9520, L501.5200 #### [facility] [address] [place], [address] IG% 0.400 Normal 0.0-0.9 [facility] Comment on above: Order Comment: 210 Result Comment: IG% - Immature Granulocytes (promyelocytes, myelocytes and metamyelocytes) > 1% indicates that a LEFT SHIFT is Present. Performed By: #### L 506.1001, L500.4100, L501.1400, L100.0100, L500.2500, L501.9520, L501.5200 #### [facility] [address] [facility] [place], [address] Lymphocytes/100 WBC (Bld) 24.0 % Normal 19-41 [facility] Comment on above: Order Comment: 210 Performed By: #### L 506.1001, L500.4100, L501.1400, L100.0100, L500.2500, L501.9520, L501.5200 #### [facility] [address] [place], [address] MCH (RBC) [Entitic mass] 28.8 pg Normal 27.0-32.0 [facility] Comment on above: Order Comment: 210 Performed By: #### L 506.1001, L500.4100, L501.1400, L100.0100, L500.2500, L501.9520, L501.5200 #### [facility] [address] [place], [address] MCHC (RBC) [Mass/Vol] 31.6 g/dL Low 32-36 [facility] Comment on above: Order Comment: 210 Performed By: #### L 506.1001, L500.4100, L501.1400, L100.0100, L500.2500, L501.9520, L501.5200 #### [facility] [address] [place], [address] MCV (RBC) [Entitic vol] 91.2 fL Normal 80-94 [facility] Comment on above: Order Comment: 210 Performed By: #### L 506.1001, L500.4100, L501.1400, L100.0100, L500.2500, L501.9520, L501.5200 #### [facility] [address] [place], [address] Monocytes/100 WBC (Bld) 11.0 % High 0-10 [facility] Comment on above: Order Comment: 210 Performed By: #### L 506.1001, L500.4100, L501.1400, L100.0100, L500.2500, L501.9520, L501.5200 #### [facility] [address] [place], [address] Neutrophils/100 WBC (Bld) 61.9 % Normal 47-70 [facility] Comment on above: Order Comment: 210 Performed By: #### L 506.1001, L500.4100, L501.1400, L100.0100, L500.2500, L501.9520, L501.5200 #### [facility] [address] [place], [address] Nucleated RBC (Bld) [#/Vol] 0 10*3/uL Normal 0-5 [facility] Comment on above: Order Comment: 210 Performed By: #### L 506.1001, L500.4100, L501.1400, L100.0100, L500.2500, L501.9520, L501.5200 #### [facility] [address] [place], [address] Platelet mean volume (Bld) [Entitic vol] 9.6 fL Normal 6.2-12.0 [facility] Comment on above: Order Comment: 210 Performed By: #### L 506.1001, L500.4100, L501.1400, L100.0100, L500.2500, L501.9520, L501.5200 #### [facility] [address] [place], [address] Platelets (Bld) [#/Vol] 154 10*3/uL Normal 150-450 [facility] Comment on above: Order Comment: 210 Performed By: #### L 506.1001, L500.4100, L501.1400, L100.0100, L500.2500, L501.9520, L501.5200 #### [facility] [address] [place], [address] RBC (Bld) [#/Vol] 4.52 10*6/uL Low 4.6-6.2 [facility] Comment on above: Order Comment: 210 Performed By: #### L 506.1001, L500.4100, L501.1400, L100.0100, L500.2500, L501.9520, L501.5200 #### [facility] [address] [place], [address] RDW SD 53.1 fl High 35.1-43.9 [facility] Comment on above: Order Comment: 210 Performed By: #### L 506.1001, L500.4100, L501.1400, L100.0100, L500.2500, L501.9520, L501.5200 #### [facility] [address] [place], [address] WBC (Bld) [#/Vol] 4.5 10*3/uL Normal 4.4-11.0 [facility] Comment on above: Order Comment: 210 Performed By: #### L 506.1001, L500.4100, L501.1400, L100.0100, L500.2500, L501.9520, L501.5200 #### [facility] [address] [place], [address] Lipid Profileon 10-28-2024 CHOL:HDL 4.07 Normal [facility] Comment on above: Order Comment: 210 Performed By: #### L 506.1001, L500.4100, L501.1400, L100.0100, L500.2500, L501.9520, L501.5200 #### [facility] [address] [place], [address] Cholesterol [Mass/Vol] 95 mg/dL Normal <=200 [facility] Comment on above: Order Comment: 210 Result Comment: Chol esterol level, Desirable <200 mg/dL Borderline high cholesterol 200-239 mg/dL High cholesterol >=240 mg/dL Recommendations of the NCEP Adult Treatment Panel for the following risk-cutoff thresholds for the [place] population. Performed By: #### L 506.1001, L500.4100, L501.1400, L100.0100, L500.2500, L501.9520, L501.5200 #### [facility] [address] [place], [address] Cholesterol in HDL [Mass/Vol] 23 mg/dL Low [facility] Comment on above: Order Comment: 210 Result Comment: Fern onal Cholesterol Education Program (NCEP) guidelines: <40 mg/dL: Low HDL-cholesterol (major risk factor for CHD) >= 60 mg/dL: High HDL-cholesterol (negative risk factor for CHD) HDL-cholesterol is affected by a number of factors, e.g. smoking, exercise, hormones, sex and age. Performed By: #### L 506.1001, L500.4100, L501.1400, L100.0100, L500.2500, L501.9520, L501.5200 #### [facility] [address] [place], [address] Cholesterol in LDL [Mass/Vol] 46 mg/dL Normal [facility] Comment on above: Order Comment: 210 Result Comment: Bord puohls=508-677 mg/dL Higher Rfgs=017 mg/dL or greater Performed By: #### L 506.1001, L500.4100, L501.1400, L100.0100, L500.2500, L501.9520, L501.5200 #### [facility] [address] [place], [address] Cholesterol in VLDL [Mass/Vol] 26 mg/dL Normal 5-40 [facility] Comment on above: Order Comment: 210 Performed By: #### L 506.1001, L500.4100, L501.1400, L100.0100, L500.2500, L501.9520, L501.5200 #### [facility] [address] [place], [address] Triglyceride [Mass/Vol] 129 mg/dL Normal [facility] Comment on above: Order Comment: 210 Result Comment: The drugs N-Acetylcysteine and Metamizole may falsely depress this assay. Normal range: <150 mg/dL Borderline High: 150-199 mg/dL High: 200-499 mg/dL Very High: >500 mg/dL Performed By: #### L 506.1001, L500.4100, L501.1400, L100.0100, L500.2500, L501.9520, L501.5200 #### [facility] [address] [place], [address] Magnesiumon 10-28-2024 Magnesium [Mass/Vol] 2.2 mg/dL Normal 1.5-2.2 [facility] Comment on above: Order Comment: 210 Performed By: #### L 506.1001, L500.4100, L501.1400, L100.0100, L500.2500, L501.9520, L501.5200 #### [facility] [address] [place], [address] Thyroid Stim Hormone (TSH)on 10-28-2024 TSH 3.370 uIU/mL Normal 0.300-4.200 [facility] Comment on above: Order Comment: 210 Performed By: #### L 506.1001, L500.4100, L501.1400, L100.0100, L500.2500, L501.9520, L501.5200 #### [facility] [address] [place], [address] Uric Acidon 10-28-2024 URIC 5.8 mg/dL Normal 3.5-7.2 [facility] Comment on above: Order Comment: 210 Result Comment: The drugs N-Acetylcysteine and Metamizole may falsely depress this assay. Performed By: #### L 506.1001, L500.4100, L501.1400, L100.0100, L500.2500, L501.9520, L501.5200 #### [facility] [address] [place], [address] Vitamin D,25 Hydroxyon 10-28 Vitamin D 25-OH < 6.0 Low 30-100 [facility] Comment on above: Order Comment: 210 Result Comment: Colleen min D Status Deficiency: <20 ng/mL (50nmol/L) Insufficiency: 20-30 ng/mL (50-75 nmol/L) Sufficiency: 30-100 ng/mL (75-250 nmol/L) Toxicity: >100 ng/mL (>250 nmol/L) Performed By: #### L 506.1001, L500.4100, L501.1400, L100.0100, L500.2500, L501.9520, L501.5200 #### [facility] [address] [place], [address] CBC-Complete Blood Cnt No Di ffon 10-24-2024 Erythrocyte distribution width (RBC) [Ratio] 15.6 % High 11.6-14.6 [facility] Comment on above: Performed By: #### L 100.0500, L500.4050 #### [facility] [address] [place], [address] Hematocrit (Bld) [Volume fraction] 40.1 % Normal 40-54 [facility] Comment on above: Performed By: #### L 100.0500, L500.4050 #### [facility] [address] [place], [address] Hemoglobin (Bld) [Mass/Vol] 12.7 g/dL Low 13.0-16.5 [facility] Comment on above: Performed By: #### L 100.0500, L500.4050 #### [facility] [address] [place], [address] MCH (RBC) [Entitic mass] 28.7 pg Normal 27.0-32.0 [facility] Comment on above: Performed By: #### L 100.0500, L500.4050 #### [facility] [address] [place], [address] MCHC (RBC) [Mass/Vol] 31.7 g/dL Low 32-36 [facility] Comment on above: Performed By: #### L 100.0500, L500.4050 #### [facility] [address] [place], [address] MCV (RBC) [Entitic vol] 90.7 fL Normal 80-94 [facility] Comment on above: Performed By: #### L 100.0500, L500.4050 #### [facility] [address] [place], [address] Platelet mean volume (Bld) [Entitic vol] 9.3 fL Normal 6.2-12.0 [facility] Comment on above: Performed By: #### L 100.0500, L500.4050 #### [facility] [address] [place], [address] Platelets (Bld) [#/Vol] 155 10*3/uL Normal 150-450 [facility] Comment on above: Performed By: #### L 100.0500, L500.4050 #### [facility] [address] [place], [address] RBC (Bld) [#/Vol] 4.42 10*6/uL Low 4.6-6.2 [facility] Comment on above: Performed By: #### L 100.0500, L500.4050 #### [facility] [address] [place], [address] RDW SD 51.8 fl High 35.1-43.9 [facility] Comment on above: Performed By: #### L 100.0500, L500.4050 #### [facility] [address] [place], [address] WBC (Bld) [#/Vol] 4.6 10*3/uL Normal 4.4-11.0 [facility] Comment on above: Performed By: #### L 100.0500, L500.4050 #### [facility] [address] [place], [address] Comprehensive Metabolic Prof [facility] 10-24-2024 Albumin [Mass/Vol] 3.4 g/dL Low 3.5-5.0 [facility] Comment on above: Performed By: #### L 100.0500, L500.4050 #### [facility] [address] [place], [address] Albumin/Globulin [Mass ratio] 1.0 {ratio} Normal 0.9-2.4 [facility] Comment on above: Performed By: #### L 100.0500, L500.4050 #### [facility] [address] [place], [address] ALK PHOS 76 U/L Normal 40-129 [facility] Comment on above: Performed By: #### L 100.0500, L500.4050 #### [facility] [address] [place], [address] ALT [Catalytic activity/Vol] 6 U/L Normal <=46 [facility] Comment on above: Performed By: #### L 100.0500, L500.4050 #### [facility] [address] [place], [address] AST [Catalytic activity/Vol] 18 U/L Normal <=37 [facility] Comment on above: Performed By: #### L 100.0500, L500.4050 #### [facility] [address] [place], [address] Bilirubin [Mass/Vol] 0.31 mg/dL Normal 0.00-1.30 [facility] Comment on above: Performed By: #### L 100.0500, L500.4050 #### [facility] [address] [place], [address] BUN/CRE 14.6 RATIO Normal 10-20 [facility] Comment on above: Performed By: #### L 100.0500, L500.4050 #### [facility] [address] [place], [address] Calcium [Mass/Vol] 9.0 mg/dL Normal 7.6-11.0 [facility] Comment on above: Performed By: #### L 100.0500, L500.4050 #### [facility] [address] [place], [address] Chloride [Moles/Vol] 99 mmol/L Normal 98-108 [facility] Comment on above: Performed By: #### L 100.0500, L500.4050 #### [facility] [address] [place], [address] CO2 [Moles/Vol] 29.2 mmol/L Normal 21.0-32.0 [facility] Comment on above: Performed By: #### L 100.0500, L500.4050 #### [facility] [address] [place], [address] Creatinine [Mass/Vol] 0.65 mg/dL Low 0.70-1.20 [facility] Comment on above: Performed By: #### L 100.0500, L500.4050 #### [facility] [address] [place], [address] GAP 9 Normal 5-15 [facility] Comment on above: Performed By: #### L 100.0500, L500.4050 #### [facility] [address] [place], [address] GFR/1.73 sq M.predicted among non-blacks MDRD (S/P/Bld) [Vol rate/Area] 113 mL/min/{1.73_m2} Normal >60 [facility] Comment on above: Result Comment: mL/m in/1.73m2 CKD-EPI Creatinine Equation (2020) Performed By: #### L 100.0500, L500.4050 #### [facility] [address] [place], [address] Globulin (S) [Mass/Vol] 3.2 g/dL Normal 2.2-4.2 [facility] Comment on above: Performed By: #### L 100.0500, L500.4050 #### [facility] [address] [place], [address] Glucose [Mass/Vol] 113 mg/dL High 70-99 [facility] Comment on above: Performed By: #### L 100.0500, L500.4050 #### [facility] [address] [place], [address] Potassium [Moles/Vol] 3.8 mmol/L Normal 3.3-5.1 [facility] Comment on above: Performed By: #### L 100.0500, L500.4050 #### [facility] [address] [place], [address] Sodium [Moles/Vol] 137 mmol/L Normal 133-145 [facility] Comment on above: Performed By: #### L 100.0500, L500.4050 #### [facility] [address] [place], [address] T PROT 6.6 g/dL Normal 5.9-8.4 [facility] Comment on above: Performed By: #### L 100.0500, L500.4050 #### [facility] [address] [place], [address] Urea nitrogen [Mass/Vol] 10 mg/dL Normal 4-19 [facility] Comment on above: Performed By: #### L 100.0500, L500.4050 #### [facility] [address] [place], [address] LABORATORYOrdered By: Samanta Morin on 10-23-2024 Blood Glucose Testing Reason Routine (10/23/24 8:27 PM) [facility] Glucose [Mass/Vol] 168 mg/dL High 70 - 110 mg/dL [facility] LABORATORYOrdered By: Sarah Carrillo on 10-23-2024 Blood Glucose Testing Reason Routine (10/23/24 5:31 PM) [facility] Glucose [Mass/Vol] 146 mg/dL High 70 - 110 mg/dL [facility] LABORATORYOrdered By: Gianna Mendez on 10-23-2024 Blood Glucose Testing Reason Routine (10/23/24 12:15 PM) [facility] Glucose [Mass/Vol] 154 mg/dL High 70 - 110 mg/dL [facility] Comment on above: Result Comment: noti fied nurse Bel RN .Auto Diffon 10-20-2024 Basophil, Absolute 0.0 10 3/mcL Normal 0.0-0.3 [facility] Comment on above: Performed By: #### M G, GFR, ANEU, ADIFF, CBC, CMP, A1C, LIPID #### [address] [address] Basophils/100 WBC (Bld) 0.6 % Normal 0.0-2.5 [facility] Comment on above: Performed By: #### M G, GFR, ANEU, ADIFF, CBC, CMP, A1C, LIPID #### [address] [address] Eosinophil, Absolute 0.1 10 3/mcL Normal 0.0-0.7 [facility] Comment on above: Performed By: #### M G, GFR, ANEU, ADIFF, CBC, CMP, A1C, LIPID #### [address] [address] Eosinophils/100 WBC (Bld) 1.5 % Normal 0.0-6.0 [facility] Comment on above: Performed By: #### M G, GFR, ANEU, ADIFF, CBC, CMP, A1C, LIPID #### [address] [address] Lymphocyte, Absolute 1.0 10 3/mcL Normal 0.9-4.3 [facility] Comment on above: Performed By: #### M G, GFR, ANEU, ADIFF, CBC, CMP, A1C, LIPID #### [address] [address] Lymphocytes/100 WBC (Bld) 21.2 % Normal 20.0-40.0 [facility] Comment on above: Performed By: #### M G, GFR, ANEU, ADIFF, CBC, CMP, A1C, LIPID #### [address] [address] Monocyte, Absolute 0.6 10 3/mcL Normal 0.1-1.4 [facility] Comment on above: Performed By: #### M G, GFR, ANEU, ADIFF, CBC, CMP, A1C, LIPID #### [address] [address] Monocytes/100 WBC (Bld) 11.6 % Normal 2.0-13.0 [facility] Comment on above: Performed By: #### M G, GFR, ANEU, ADIFF, CBC, CMP, A1C, LIPID #### [facility] [address] [place] [address] Neutrophils/100 WBC (Bld) 65.1 % Normal 50.0-75.0 [facility] Comment on above: Performed By: #### M G, GFR, ANEU, ADIFF, CBC, CMP, A1C, LIPID #### [address] [address] .GFRon 10-20-2024 Estimated Glomerular Filtration Rate 108 ml/min/1.73sqm Normal [facility] Comment on above: Result Comment: Stages of Chronic Kidney Disease (CKD) Stage Description eGFR(ml/min/1.73 sq.m.) CKD 1 Normal kidney function or >=90 normal kindney function with possible kidney damage (ex. Proteinuria) CKD 2 Kidney damage with mild loss 60-89 of kidney function CKD 3a Mild to moderate loss of kidney 45-59 function CKD 3b Moderate to severe loss of 30-44 of kindey function CKD 4 Severe loss of kidney function 15-29 CKD 5 Kidney failure <15 Note: (go live 2024) the eGFR calculation was updated to the 2020 CKD-EPI creatinine equation without a race factor to calculate the eGFR results. Performed By: #### M G, GFR, ANEU, ADIFF, CBC, CMP, A1C, LIPID #### [address] [address] .NEUABSon 10-20-2024 Neutrophil, Absolute 3.2 10 3/mcL Normal 2.3-8.1 [facility] Comment on above: Performed By: #### M G, GFR, ANEU, ADIFF, CBC, CMP, A1C, LIPID #### [place] [id number] [place] [address] BMPon 10-20-2024 BUN/Creatinine Ratio 10.8 ratio Normal 10.0-22.0 [facility] Comment on above: Performed By: #### M G, GFR, ANEU, ADIFF, CBC, CMP, A1C, LIPID #### [address] [address] Calcium [Mass/Vol] 8.7 mg/dL Normal 8.7-10.4 [facility] Comment on above: Performed By: #### M G, GFR, ANEU, ADIFF, CBC, CMP, A1C, LIPID #### [address] [address] Chloride [Moles/Vol] 97 mmol/L Low 98-110 [facility] Comment on above: Performed By: #### M G, GFR, ANEU, ADIFF, CBC, CMP, A1C, LIPID #### [address] [address] CO2 [Moles/Vol] 37 mmol/L High 22-32 [facility] Comment on above: Performed By: #### M G, GFR, ANEU, ADIFF, CBC, CMP, A1C, LIPID #### [address] [address] Creatinine [Mass/Vol] 0.74 mg/dL Normal 0.60-1.40 [facility] Comment on above: Result Comment: Test ing performed on Tactilize analyzer using enzymatic creatinine methodology. Performed By: #### M G, GFR, ANEU, ADIFF, CBC, CMP, A1C, LIPID #### [address] [address] Electrolyte Balance 4.0 mEq/L Normal 4.0-15.0 [facility] Comment on above: Performed By: #### M G, GFR, ANEU, ADIFF, CBC, CMP, A1C, LIPID #### [address] [address] Glucose [Mass/Vol] 116 mg/dL High 70-110 [facility] Comment on above: Performed By: #### M G, GFR, ANEU, ADIFF, CBC, CMP, A1C, LIPID #### [address] [address] Potassium [Moles/Vol] 3.5 mmol/L Normal 3.5-5.0 [facility] Comment on above: Performed By: #### M G, GFR, ANEU, ADIFF, CBC, CMP, A1C, LIPID #### [place] [address] Sodium [Moles/Vol] 138 mmol/L Normal 136-145 [facility] Comment on above: Performed By: #### M G, GFR, ANEU, ADIFF, CBC, CMP, A1C, LIPID #### [place] [id number] Urea nitrogen [Mass/Vol] 8.0 mg/dL Normal 8.0-22.0 [facility] Comment on above: Performed By: #### M G, GFR, ANEU, ADIFF, CBC, CMP, A1C, LIPID #### [place] [id number] CBCon 10-20-2024 Erythrocyte distribution width (RBC) [Ratio] 16.8 % High 11.5-15.5 [facility] Comment on above: Performed By: #### M G, GFR, ANEU, ADIFF, CBC, CMP, A1C, LIPID #### [place] [address] Hematocrit (Bld) [Volume fraction] 41.3 % Normal 40.0-52.0 [facility] Comment on above: Performed By: #### M G, GFR, ANEU, ADIFF, CBC, CMP, A1C, LIPID #### [place] [address] Hgb 13.4 G/dL Normal 13.0-17.5 [facility] Comment on above: Performed By: #### M G, GFR, ANEU, ADIFF, CBC, CMP, A1C, LIPID #### [place] [address] MCH (RBC) [Entitic mass] 28.7 pg Normal 27.0-33.0 [facility] Comment on above: Performed By: #### M G, GFR, ANEU, ADIFF, CBC, CMP, A1C, LIPID #### [place] [address] MCHC 32.4 G/dL Normal 32.0-36.0 [facility] Comment on above: Performed By: #### M G, GFR, ANEU, ADIFF, CBC, CMP, A1C, LIPID #### [place] [address] MCV (RBC) [Entitic vol] 88.5 fL Normal 81.0-100.0 [facility] Comment on above: Performed By: #### M G, GFR, ANEU, ADIFF, CBC, CMP, A1C, LIPID #### [place] [address] Platelet 175 10 3/mcL Normal 150-450 [facility] Comment on above: Performed By: #### M G, GFR, ANEU, ADIFF, CBC, CMP, A1C, LIPID #### [place] [address] Platelet mean volume (Bld) [Entitic vol] 7.3 fL Normal 6.4-10.5 [facility] Comment on above: Performed By: #### M G, GFR, ANEU, ADIFF, CBC, CMP, A1C, LIPID #### [place] [address] RBC 4.67 10 6/mcL Normal 4.50-6.00 [facility] Comment on above: Performed By: #### M G, GFR, ANEU, ADIFF, CBC, CMP, A1C, LIPID #### [place] [address] WBC 4.8 10 3/mcL Normal 4.5-10.8 [facility] Comment on above: Performed By: #### M G, GFR, ANEU, ADIFF, CBC, CMP, A1C, LIPID #### [place] [address] LABORATORYOrdered By: SYSTEM SYSTEM on 10-20-2024 Basophils (Bld) [#/Vol] 0.0 103/mcL Normal 0.0 - 0.3 10^3/mcL AH Workflow SS Basophils/100 WBC (Bld) 0.6 % Normal 0.0 - 2.5 % AH Workflow SS Calcium [Mass/Vol] 8.7 mg/dL Normal 8.7 - 10. 4 mg/dL AH ADM SS Chloride [Moles/Vol] 97 mmol/L Low 98 - 11 0 mEq/L AH ADM SS CO2 [Moles/Vol] 37 mmol/L High 22 - 32 mEq/L ADM SS Creatinine [Mass/Vol] 0.74 mg/dL Normal 0.60 - 1.40 mg/dL ADM SS Comment on above: Interpretive Data: T esting performed on Tactilize analyzer using enzymatic creatinine methodology. Electrolyte Balance 4.0 mEq/L Normal 4.0 - 15 .0 mEq/L ADM SS Eosinophils (Bld) [#/Vol] 0.1 103/mcL Normal 0.0 - 0.7 10^3/mcL Workflow SS Eosinophils/100 WBC (Bld) 1.5 % Normal 0.0 - 6.0 % Workflow SS Erythrocyte distribution width (RBC) [Ratio] 16.8 % High 11.5 - 15.5 % Workflow SS Estimated Glomerular Filtration Rate 108 ml/min/1.73sqm Invalid Interpretation Code Chemistry S Comment on above: Interpretive Data: Stages of Chronic Kidney Disease (CKD) Stage Description eGFR(ml/min/1.73 sq.m.) CKD 1 Normal kidney function or >=90 normal kindney function with possible kidney damage (ex. Proteinuria) CKD 2 Kidney damage with mild loss 60-89 of kidney function CKD 3a Mild to moderate loss of kidney 45-59 function CKD 3b Moderate to severe loss of 30-44 of kindey function CKD 4 Severe loss of kidney function 15-29 CKD 5 Kidney failure <15 Note: (go live 2024) the eGFR calculation was updated to the 2020 CKD-EPI creatinine equation without a race factor to calculate the eGFR results. Glucose [Mass/Vol] 116 mg/dL High 70 - 110 mg/dL ADM SS Hematocrit (Bld) [Volume fraction] 41.3 % Normal 40.0 - 52.0 % Workflow SS Hemoglobin (Bld) [Mass/Vol] 13.4 G/dL Normal 13.0 - 17.5 G/dL Workflow SS Lymphocytes (Bld) [#/Vol] 1.0 103/mcL Normal 0.9 - 4.3 10^3/mcL Workflow SS Lymphocytes/100 WBC (Bld) 21.2 % Normal 20.0 - 40.0 % Workflow SS MCH (RBC) [Entitic mass] 28.7 pg Normal 27.0 - 33.0 pg Workflow SS MCHC 32.4 G/dL Normal 32.0 - 36.0 G/dL Workflow SS MCV (RBC) [Entitic vol] 88.5 fL Normal 81.0 - 100.0 fL AH Workflow SS Monocytes (Bld) [#/Vol] 0.6 103/mcL Normal 0.1 - 1.4 10^3/mcL AH Workflow SS Monocytes/100 WBC (Bld) 11.6 % Normal 2.0 - 13.0 % AH Workflow SS Neutrophils (Bld) [#/Vol] 3.2 103/mcL Normal 2.3 - 8.1 10^3/mcL AH Workflow SS Neutrophils/100 WBC (Bld) 65.1 % Normal 50.0 - 75.0 % Workflow SS Platelet mean volume (Bld) [Entitic vol] 7.3 fL Normal 6.4 - 10.5 fL Workflow SS Platelets (Bld) [#/Vol] 175 103/mcL Normal 150 - 450 10^3/mcL AH Workflow SS Potassium [Moles/Vol] 3.5 mmol/L Normal 3.5 - 5.0 mEq/L ADM SS RBC (Bld) [#/Vol] 4.67 106/mcL Normal 4.50 - 6.0 0 10^6/mcL AH Workflow SS Sodium [Moles/Vol] 138 mmol/L Normal 136 - 145 mEq/L AH ADM SS Urea nitrogen [Mass/Vol] 8.0 mg/dL Normal 8.0 - 22.0 mg/dL ADM SS Urea nitrogen/Creatinine [Mass ratio] 10.8 ratio Normal 10.0 - 22.0 ratio ADM SS WBC (Bld) [#/Vol] 4.8 103/mcL Normal 4.5 - 10.8 10^3/mcL Workflow SS .Auto Diffon 10-19-2024 Basophil, Absolute 0.0 10 3/mcL Normal 0.0-0.3 [facility] Comment on above: Performed By: #### M G, GFR, ANEU, ADIFF, CBC, CMP, A1C, LIPID #### [facility] [address] [place] [id number] Basophils/100 WBC (Bld) 0.7 % Normal 0.0-2.5 [facility] Comment on above: Performed By: #### M G, GFR, ANEU, ADIFF, CBC, CMP, A1C, LIPID #### [address] [address] Eosinophil, Absolute 0.1 10 3/mcL Normal 0.0-0.7 [facility] Comment on above: Performed By: #### M G, GFR, ANEU, ADIFF, CBC, CMP, A1C, LIPID #### [address] [address] Eosinophils/100 WBC (Bld) 1.9 % Normal 0.0-6.0 [facility] Comment on above: Performed By: #### M G, GFR, ANEU, ADIFF, CBC, CMP, A1C, LIPID #### [address] [address] Lymphocyte, Absolute 1.0 10 3/mcL Normal 0.9-4.3 [facility] Comment on above: Performed By: #### M G, GFR, ANEU, ADIFF, CBC, CMP, A1C, LIPID #### [address] [address] Lymphocytes/100 WBC (Bld) 18.3 % Low 20.0-40.0 [facility] Comment on above: Performed By: #### M G, GFR, ANEU, ADIFF, CBC, CMP, A1C, LIPID #### [address] [address] Monocyte, Absolute 0.5 10 3/mcL Normal 0.1-1.4 [facility] Comment on above: Performed By: #### M G, GFR, ANEU, ADIFF, CBC, CMP, A1C, LIPID #### [address] [address] Monocytes/100 WBC (Bld) 9.1 % Normal 2.0-13.0 [facility] Comment on above: Performed By: #### M G, GFR, ANEU, ADIFF, CBC, CMP, A1C, LIPID #### [address] [address] Neutrophils/100 WBC (Bld) 70.0 % Normal 50.0-75.0 [facility] Comment on above: Performed By: #### M G, GFR, ANEU, ADIFF, CBC, CMP, A1C, LIPID #### [address] [address] .GFRon 10-19-2024 Estimated Glomerular Filtration Rate 109 ml/min/1.73sqm Normal [facility] Comment on above: Result Comment: Stages of Chronic Kidney Disease (CKD) Stage Description eGFR(ml/min/1.73 sq.m.) CKD 1 Normal kidney function or >=90 normal kindney function with possible kidney damage (ex. Proteinuria) CKD 2 Kidney damage with mild loss 60-89 of kidney function CKD 3a Mild to moderate loss of kidney 45-59 function CKD 3b Moderate to severe loss of 30-44 of kindey function CKD 4 Severe loss of kidney function 15-29 CKD 5 Kidney failure <15 Note: (go live 2024) the eGFR calculation was updated to the 2020 CKD-EPI creatinine equation without a race factor to calculate the eGFR results. Performed By: #### M G, GFR, ANEU, ADIFF, CBC, CMP, A1C, LIPID #### [address] [id number] .NEUABSon 10-19-2024 Neutrophil, Absolute 3.8 10 3/mcL Normal 2.3-8.1 [facility] Comment on above: Performed By: #### M G, GFR, ANEU, ADIFF, CBC, CMP, A1C, LIPID #### [address] [address] BMPon 10-19-2024 BUN/Creatinine Ratio 11.1 ratio Normal 10.0-22.0 [facility] Comment on above: Performed By: #### M G, GFR, ANEU, ADIFF, CBC, CMP, A1C, LIPID #### [address] [address] Calcium [Mass/Vol] 8.7 mg/dL Normal 8.7-10.4 [facility] Comment on above: Performed By: #### M G, GFR, ANEU, ADIFF, CBC, CMP, A1C, LIPID #### [address] [address] Chloride [Moles/Vol] 100 mmol/L Normal 98-110 [facility] Comment on above: Performed By: #### M G, GFR, ANEU, ADIFF, CBC, CMP, A1C, LIPID #### [address] [address] CO2 [Moles/Vol] 33 mmol/L High 22-32 [facility] Comment on above: Performed By: #### M G, GFR, ANEU, ADIFF, CBC, CMP, A1C, LIPID #### [address] [address] Creatinine [Mass/Vol] 0.72 mg/dL Normal 0.60-1.40 [facility] Comment on above: Result Comment: Test ing performed on Tactilize analyzer using enzymatic creatinine methodology. Performed By: #### M G, GFR, ANEU, ADIFF, CBC, CMP, A1C, LIPID #### [address] [address] Electrolyte Balance 4.0 mEq/L Normal 4.0-15.0 [facility] Comment on above: Performed By: #### M G, GFR, ANEU, ADIFF, CBC, CMP, A1C, LIPID #### [address] [address] Glucose [Mass/Vol] 181 mg/dL High 70-110 [facility] Comment on above: Performed By: #### M G, GFR, ANEU, ADIFF, CBC, CMP, A1C, LIPID #### [address] [address] Potassium [Moles/Vol] 3.5 mmol/L Normal 3.5-5.0 [facility] Comment on above: Performed By: #### M G, GFR, ANEU, ADIFF, CBC, CMP, A1C, LIPID #### [address] [address] Sodium [Moles/Vol] 137 mmol/L Normal 136-145 [facility] Comment on above: Performed By: #### M G, GFR, ANEU, ADIFF, CBC, CMP, A1C, LIPID #### [address] [address] Urea nitrogen [Mass/Vol] 8.0 mg/dL Normal 8.0-22.0 [facility] Comment on above: Performed By: #### M G, GFR, ANEU, ADIFF, CBC, CMP, A1C, LIPID #### [place] [id number] CBCon 10-19-2024 Erythrocyte distribution width (RBC) [Ratio] 17.3 % High 11.5-15.5 [facility] Comment on above: Performed By: #### M G, GFR, ANEU, ADIFF, CBC, CMP, A1C, LIPID #### [place] [address] Hematocrit (Bld) [Volume fraction] 40.5 % Normal 40.0-52.0 [facility] Comment on above: Performed By: #### M G, GFR, ANEU, ADIFF, CBC, CMP, A1C, LIPID #### [place] [address] Hgb 13.0 G/dL Normal 13.0-17.5 [facility] Comment on above: Performed By: #### M G, GFR, ANEU, ADIFF, CBC, CMP, A1C, LIPID #### [place] [address] MCH (RBC) [Entitic mass] 28.6 pg Normal 27.0-33.0 [facility] Comment on above: Performed By: #### M G, GFR, ANEU, ADIFF, CBC, CMP, A1C, LIPID #### [place] [address] MCHC 32.1 G/dL Normal 32.0-36.0 [facility] Comment on above: Performed By: #### M G, GFR, ANEU, ADIFF, CBC, CMP, A1C, LIPID #### [place] [address] MCV (RBC) [Entitic vol] 89.2 fL Normal 81.0-100.0 [facility] Comment on above: Performed By: #### M G, GFR, ANEU, ADIFF, CBC, CMP, A1C, LIPID #### [place] [address] Platelet 171 10 3/mcL Normal 150-450 [facility] Comment on above: Performed By: #### M G, GFR, ANEU, ADIFF, CBC, CMP, A1C, LIPID #### [place] [id number] [place] [address] Platelet mean volume (Bld) [Entitic vol] 7.6 fL Normal 6.4-10.5 [facility] Comment on above: Performed By: #### M G, GFR, ANEU, ADIFF, CBC, CMP, A1C, LIPID #### [place] [id number] [place] [address] RBC 4.54 10 6/mcL Normal 4.50-6.00 [facility] Comment on above: Performed By: #### M G, GFR, ANEU, ADIFF, CBC, CMP, A1C, LIPID #### [place] [address] WBC 5.4 10 3/mcL Normal 4.5-10.8 [facility] Comment on above: Performed By: #### M G, GFR, ANEU, ADIFF, CBC, CMP, A1C, LIPID #### [place] [address] LABORATORYOrdered By: SYSTEM SYSTEM on 10-19-2024 Basophils (Bld) [#/Vol] 0.0 103/mcL Normal 0.0 - 0.3 10^3/mcL Workflow SS Basophils/100 WBC (Bld) 0.7 % Normal 0.0 - 2.5 % Workflow SS Calcium [Mass/Vol] 8.7 mg/dL Normal 8.7 - 10. 4 mg/dL ADM SS Chloride [Moles/Vol] 100 mmol/L Normal 98 - 11 0 mEq/L ADM SS CO2 [Moles/Vol] 33 mmol/L High 22 - 32 mEq/L ADM SS Creatinine [Mass/Vol] 0.72 mg/dL Normal 0.60 - 1.40 mg/dL ADM SS Comment on above: Interpretive Data: T esting performed on Tactilize analyzer using enzymatic creatinine methodology. Electrolyte Balance 4.0 mEq/L Normal 4.0 - 15 .0 mEq/L ADM SS Eosinophils (Bld) [#/Vol] 0.1 103/mcL Normal 0.0 - 0.7 10^3/mcL AH Workflow SS Eosinophils/100 WBC (Bld) 1.9 % Normal 0.0 - 6.0 % AH Workflow SS Erythrocyte distribution width (RBC) [Ratio] 17.3 % High 11.5 - 15.5 % AH Workflow SS Estimated Glomerular Filtration Rate 109 ml/min/1.73sqm Invalid Interpretation Code Chemistry S Comment on above: Interpretive Data: Stages of Chronic Kidney Disease (CKD) Stage Description eGFR(ml/min/1.73 sq.m.) CKD 1 Normal kidney function or >=90 normal kindney function with possible kidney damage (ex. Proteinuria) CKD 2 Kidney damage with mild loss 60-89 of kidney function CKD 3a Mild to moderate loss of kidney 45-59 function CKD 3b Moderate to severe loss of 30-44 of kindey function CKD 4 Severe loss of kidney function 15-29 CKD 5 Kidney failure <15 Note: (go live 2024) the eGFR calculation was updated to the 2020 CKD-EPI creatinine equation without a race factor to calculate the eGFR results. Glucose [Mass/Vol] 181 mg/dL High 70 - 110 mg/dL ADM SS Hematocrit (Bld) [Volume fraction] 40.5 % Normal 40.0 - 52.0 % AH Workflow SS Hemoglobin (Bld) [Mass/Vol] 13.0 G/dL Normal 13.0 - 17.5 G/dL AH Workflow SS Lymphocytes (Bld) [#/Vol] 1.0 103/mcL Normal 0.9 - 4.3 10^3/mcL AH Workflow SS Lymphocytes/100 WBC (Bld) 18.3 % Low 20.0 - 40.0 % AH Workflow SS MCH (RBC) [Entitic mass] 28.6 pg Normal 27.0 - 33.0 pg AH Workflow SS MCHC 32.1 G/dL Normal 32.0 - 36.0 G/dL AH Workflow SS MCV (RBC) [Entitic vol] 89.2 fL Normal 81.0 - 100.0 fL AH Workflow SS Monocytes (Bld) [#/Vol] 0.5 103/mcL Normal 0.1 - 1.4 10^3/mcL AH Workflow SS Monocytes/100 WBC (Bld) 9.1 % Normal 2.0 - 13.0 % AH Workflow SS Neutrophils (Bld) [#/Vol] 3.8 103/mcL Normal 2.3 - 8.1 10^3/mcL AH Workflow SS Neutrophils/100 WBC (Bld) 70.0 % Normal 50.0 - 75.0 % Workflow SS Platelet mean volume (Bld) [Entitic vol] 7.6 fL Normal 6.4 - 10.5 fL Workflow SS Platelets (Bld) [#/Vol] 171 103/mcL Normal 150 - 450 10^3/mcL Workflow SS Potassium [Moles/Vol] 3.5 mmol/L Normal 3.5 - 5.0 mEq/L ADM SS RBC (Bld) [#/Vol] 4.54 106/mcL Normal 4.50 - 6.0 0 10^6/mcL Workflow SS Sodium [Moles/Vol] 137 mmol/L Normal 136 - 145 mEq/L ADM SS Urea nitrogen [Mass/Vol] 8.0 mg/dL Normal 8.0 - 22.0 mg/dL ADM SS Urea nitrogen/Creatinine [Mass ratio] 11.1 ratio Normal 10.0 - 22.0 ratio ADM SS WBC (Bld) [#/Vol] 5.4 103/mcL Normal 4.5 - 10.8 10^3/mcL Workflow SS .Auto Diffon 10-18-2024 Basophil, Absolute 0.0 10 3/mcL Normal 0.0-0.3 [facility] Comment on above: Performed By: #### M G, GFR, ANEU, ADIFF, CBC, CMP, A1C, LIPID #### [address] [address] Basophils/100 WBC (Bld) 0.6 % Normal 0.0-2.5 [facility] Comment on above: Performed By: #### M G, GFR, ANEU, ADIFF, CBC, CMP, A1C, LIPID #### [address] [address] Eosinophil, Absolute 0.1 10 3/mcL Normal 0.0-0.7 [facility] Comment on above: Performed By: #### M G, GFR, ANEU, ADIFF, CBC, CMP, A1C, LIPID #### [address] [address] Eosinophils/100 WBC (Bld) 1.7 % Normal 0.0-6.0 [facility] Comment on above: Performed By: #### M G, GFR, ANEU, ADIFF, CBC, CMP, A1C, LIPID #### [address] [id number] Lymphocyte, Absolute 1.2 10 3/mcL Normal 0.9-4.3 [facility] Comment on above: Performed By: #### M G, GFR, ANEU, ADIFF, CBC, CMP, A1C, LIPID #### [address] [id number] Lymphocytes/100 WBC (Bld) 19.0 % Low 20.0-40.0 [facility] Comment on above: Performed By: #### M G, GFR, ANEU, ADIFF, CBC, CMP, A1C, LIPID #### [address] [id number] Monocyte, Absolute 0.9 10 3/mcL Normal 0.1-1.4 [facility] Comment on above: Performed By: #### M G, GFR, ANEU, ADIFF, CBC, CMP, A1C, LIPID #### [address] [id number] Monocytes/100 WBC (Bld) 14.1 % High 2.0-13.0 [facility] Comment on above: Performed By: #### M G, GFR, ANEU, ADIFF, CBC, CMP, A1C, LIPID #### [address] [id number] Neutrophils/100 WBC (Bld) 64.6 % Normal 50.0-75.0 [facility] Comment on above: Performed By: #### M G, GFR, ANEU, ADIFF, CBC, CMP, A1C, LIPID #### [address] [id number] Basophil, Absolute 0.0 10 3/mcL Normal 0.0-0.3 [facility] Comment on above: Performed By: #### M G, GFR, ANEU, ADIFF, CBC, CMP, A1C, LIPID #### [address] [id number] Basophils/100 WBC (Bld) 0.4 % Normal 0.0-2.5 [facility] Comment on above: Performed By: #### M G, GFR, ANEU, ADIFF, CBC, CMP, A1C, LIPID #### [address] [address] Eosinophil, Absolute 0.1 10 3/mcL Normal 0.0-0.7 [facility] Comment on above: Performed By: #### M G, GFR, ANEU, ADIFF, CBC, CMP, A1C, LIPID #### [address] [id number] Eosinophils/100 WBC (Bld) 1.2 % Normal 0.0-6.0 [facility] Comment on above: Performed By: #### M G, GFR, ANEU, ADIFF, CBC, CMP, A1C, LIPID #### [address] [id number] Lymphocyte, Absolute 0.7 10 3/mcL Low 0.9-4.3 [facility] Comment on above: Performed By: #### M G, GFR, ANEU, ADIFF, CBC, CMP, A1C, LIPID #### [address] [address] Lymphocytes/100 WBC (Bld) 16.1 % Low 20.0-40.0 [facility] [facility] Comment on above: Performed By: #### M G, GFR, ANEU, ADIFF, CBC, CMP, A1C, LIPID #### [address] [address] Monocyte, Absolute 0.5 10 3/mcL Normal 0.1-1.4 [facility] MAIN Comment on above: Performed By: #### M G, GFR, ANEU, ADIFF, CBC, CMP, A1C, LIPID #### [address] [address] Monocytes/100 WBC (Bld) 11.8 % Normal 2.0-13.0 [facility] Comment on above: Performed By: #### M G, GFR, ANEU, ADIFF, CBC, CMP, A1C, LIPID #### [address] [address] Neutrophils/100 WBC (Bld) 70.5 % Normal 50.0-75.0 [facility] Comment on above: Performed By: #### M G, GFR, ANEU, ADIFF, CBC, CMP, A1C, LIPID #### [address] [address] .GFRon 10-18-2024 Estimated Glomerular Filtration Rate 112 ml/min/1.73sqm [facility] MAIN Comment on above: Result Comment: Stages of Chronic Kidney Disease (CKD) Stage Description eGFR(ml/min/1.73 sq.m.) CKD 1 Normal kidney function or >=90 normal kindney function with possible kidney damage (ex. Proteinuria) CKD 2 Kidney damage with mild loss 60-89 of kidney function CKD 3a Mild to moderate loss of kidney 45-59 function CKD 3b Moderate to severe loss of 30-44 of kindey function CKD 4 Severe loss of kidney function 15-29 CKD 5 Kidney failure <15 Note: ( live 07/02/2024) the eGFR calculation was updated to the 2020 CKD-EPI creatinine equation without a race factor to calculate the eGFR results. Performed By: #### M G, GFR, ANEU, ADIFF, CBC, CMP, A1C, LIPID #### [place] [address] Estimated Glomerular Filtration Rate 114 ml/min/1.73sqm Normal [facility] Comment on above: Result Comment: Stages of Chronic Kidney Disease (CKD) Stage Description eGFR(ml/min/1.73 sq.m.) CKD 1 Normal kidney function or >=90 normal kindney function with possible kidney damage (ex. Proteinuria) CKD 2 Kidney damage with mild loss 60-89 of kidney function CKD 3a Mild to moderate loss of kidney 45-59 function CKD 3b Moderate to severe loss of 30-44 of kindey function CKD 4 Severe loss of kidney function 15-29 CKD 5 Kidney failure <15 Note: (go live 2024) the eGFR calculation was updated to the 2020 CKD-EPI creatinine equation without a race factor to calculate the eGFR results. Performed By: #### M G, GFR, ANEU, ADIFF, CBC, CMP, A1C, LIPID #### [place] [address] .NEUABSon 10-18-2024 Neutrophil, Absolute 3.9 10 3/mcL Normal 2.3-8.1 [facility] MAIN Comment on above: Performed By: #### M G, GFR, ANEU, ADIFF, CBC, CMP, A1C, LIPID #### [address] [address] Neutrophil, Absolute 3.3 10 3/mcL Normal 2.3-8.1 [facility] Comment on above: Performed By: #### M G, GFR, ANEU, ADIFF, CBC, CMP, A1C, LIPID #### [address] [address] BMPon 10-18-2024 BUN/Creatinine Ratio 9.0 ratio Low 10.0-22.0 [facility] Comment on above: Performed By: #### M G, GFR, ANEU, ADIFF, CBC, CMP, A1C, LIPID #### [place] [id number] Calcium [Mass/Vol] 8.7 mg/dL Normal 8.7-10.4 [facility] MAIN Comment on above: Performed By: #### M G, GFR, ANEU, ADIFF, CBC, CMP, A1C, LIPID #### [place] [id number] Chloride [Moles/Vol] 99 mmol/L Normal 98-110 [facility] Comment on above: Performed By: #### M G, GFR, ANEU, ADIFF, CBC, CMP, A1C, LIPID #### [address] [address] CO2 [Moles/Vol] 33 mmol/L High 22-32 [facility] Comment on above: Performed By: #### M G, GFR, ANEU, ADIFF, CBC, CMP, A1C, LIPID #### [place] [id number] Creatinine [Mass/Vol] 0.67 mg/dL Normal 0.60-1.40 [facility] MAIN Comment on above: Result Comment: Test ing performed on Tactilize analyzer using enzymatic creatinine methodology. Performed By: #### M G, GFR, ANEU, ADIFF, CBC, CMP, A1C, LIPID #### [address] [address] Electrolyte Balance 5.0 mEq/L Normal 4.0-15.0 [facility] MAIN Comment on above: Performed By: #### M G, GFR, ANEU, ADIFF, CBC, CMP, A1C, LIPID #### [address] [address] Glucose [Mass/Vol] 115 mg/dL High 70-110 [facility] MAIN Comment on above: Performed By: #### M G, GFR, ANEU, ADIFF, CBC, CMP, A1C, LIPID #### [address] [address] Potassium [Moles/Vol] 3.4 mmol/L Low 3.5-5.0 [facility] MAIN Comment on above: Performed By: #### M G, GFR, ANEU, ADIFF, CBC, CMP, A1C, LIPID #### [address] [address] Sodium [Moles/Vol] 137 mmol/L Normal 136-145 [facility] MAIN Comment on above: Performed By: #### M G, GFR, ANEU, ADIFF, CBC, CMP, A1C, LIPID #### [address] [address] Urea nitrogen [Mass/Vol] 6.0 mg/dL Low 8.0-22.0 [facility] Comment on above: Performed By: #### M G, GFR, ANEU, ADIFF, CBC, CMP, A1C, LIPID #### [place] [id number] BUN/Creatinine Ratio Unable to Calculate Normal 10.0-2 2.0 [facility] Comment on above: Order Comment: Pleas e draw daily labs at 3 AM for 3 days Result Comment: Unab le to calculate this test result accurately. Results used to calculate this test are outside the reportable range. Performed By: #### M G, GFR, ANEU, ADIFF, CBC, CMP, A1C, LIPID #### [address] [address] Urea nitrogen [Mass/Vol] mg/dL Low 8.0-22.0 [facility] Comment on above: Order Comment: Pleas e draw daily labs at 3 AM for 3 days Performed By: #### M G, GFR, ANEU, ADIFF, CBC, CMP, A1C, LIPID #### [address] [address] Calcium [Mass/Vol] 9.2 mg/dL Normal 8.7-10.4 [facility] MAIN Comment on above: Order Comment: Pleas e draw daily labs at 3 AM for 3 days Performed By: #### M G, GFR, ANEU, ADIFF, CBC, CMP, A1C, LIPID #### [address] [address] Chloride [Moles/Vol] 101 mmol/L Normal 98-110 [facility] Comment on above: Order Comment: Pleas e draw daily labs at 3 AM for 3 days Performed By: #### M G, GFR, ANEU, ADIFF, CBC, CMP, A1C, LIPID #### [address] [address] CO2 [Moles/Vol] 33 mmol/L High 22-32 [facility] Comment on above: Order Comment: Pleas e draw daily labs at 3 AM for 3 days Performed By: #### M G, GFR, ANEU, ADIFF, CBC, CMP, A1C, LIPID #### [address] [address] Creatinine [Mass/Vol] 0.63 mg/dL Normal 0.60-1.40 [facility] MAIN Comment on above: Order Comment: Pleas e draw daily labs at 3 AM for 3 days Result Comment: Test ing performed on Tactilize analyzer using enzymatic creatinine methodology. Performed By: #### M G, GFR, ANEU, ADIFF, CBC, CMP, A1C, LIPID #### [address] [address] Electrolyte Balance 5.0 mEq/L Normal 4.0-15.0 [facility] MAIN Comment on above: Order Comment: Pleas e draw daily labs at 3 AM for 3 days Performed By: #### M G, GFR, ANEU, ADIFF, CBC, CMP, A1C, LIPID #### [address] [address] Glucose [Mass/Vol] 110 mg/dL Normal 70-110 [facility] MAIN Comment on above: Order Comment: Pleas e draw daily labs at 3 AM for 3 days Performed By: #### M G, GFR, ANEU, ADIFF, CBC, CMP, A1C, LIPID #### [address] [address] Potassium [Moles/Vol] 3.6 mmol/L Normal 3.5-5.0 [facility] MAIN Comment on above: Order Comment: Pleas e draw daily labs at 3 AM for 3 days Performed By: #### M G, GFR, ANEU, ADIFF, CBC, CMP, A1C, LIPID #### [address] [address] Sodium [Moles/Vol] 139 mmol/L Normal 136-145 [facility] MAIN Comment on above: Order Comment: Pleas e draw daily labs at 3 AM for 3 days Performed By: #### M G, GFR, ANEU, ADIFF, CBC, CMP, A1C, LIPID #### [address] [address] CBCon 10-18-2024 Erythrocyte distribution width (RBC) [Ratio] 17.3 % High 11.5-15.5 [facility] Comment on above: Performed By: #### M G, GFR, ANEU, ADIFF, CBC, CMP, A1C, LIPID #### [place] [phone] Hematocrit (Bld) [Volume fraction] 41.4 % Normal 40.0-52.0 [facility] Comment on above: Performed By: #### M G, GFR, ANEU, ADIFF, CBC, CMP, A1C, LIPID #### [address] [address] Hgb 13.5 G/dL Normal 13.0-17.5 [facility] Comment on above: Performed By: #### M G, GFR, ANEU, ADIFF, CBC, CMP, A1C, LIPID #### [address] [address] MCH (RBC) [Entitic mass] 28.9 pg Normal 27.0-33.0 [facility] Comment on above: Performed By: #### M G, GFR, ANEU, ADIFF, CBC, CMP, A1C, LIPID #### [address] [address] MCHC 32.7 G/dL Normal 32.0-36.0 [facility] Comment on above: Performed By: #### M G, GFR, ANEU, ADIFF, CBC, CMP, A1C, LIPID #### [place] [address] MCV (RBC) [Entitic vol] 88.4 fL Normal 81.0-100.0 [facility] Comment on above: Performed By: #### M G, GFR, ANEU, ADIFF, CBC, CMP, A1C, LIPID #### [place] [address] Platelet 158 10 3/mcL Normal 150-450 [facility] Comment on above: Performed By: #### M G, GFR, ANEU, ADIFF, CBC, CMP, A1C, LIPID #### [place] [address] Platelet mean volume (Bld) [Entitic vol] 7.9 fL Normal 6.4-10.5 [facility] Comment on above: Performed By: #### M G, GFR, ANEU, ADIFF, CBC, CMP, A1C, LIPID #### [place] [address] RBC 4.68 10 6/mcL Normal 4.50-6.00 [facility] Comment on above: Performed By: #### M G, GFR, ANEU, ADIFF, CBC, CMP, A1C, LIPID #### [place] [id number] WBC 6.1 10 3/mcL Normal 4.5-10.8 [facility] Comment on above: Performed By: #### M G, GFR, ANEU, ADIFF, CBC, CMP, A1C, LIPID #### [place] [address] Erythrocyte distribution width (RBC) [Ratio] 16.9 % High 11.5-15.5 [facility] Comment on above: Order Comment: Colle ct blood every day at 3 AM for the next 3 days. Performed By: #### M G, GFR, ANEU, ADIFF, CBC, CMP, A1C, LIPID #### [place] [address] Hematocrit (Bld) [Volume fraction] 41.4 % Normal 40.0-52.0 [facility] Comment on above: Order Comment: Colle ct blood every day at 3 AM for the next 3 days. Performed By: #### M G, GFR, ANEU, ADIFF, CBC, CMP, A1C, LIPID #### [place] [address] Hgb 13.6 G/dL Normal 13.0-17.5 [facility] Comment on above: Order Comment: Colle ct blood every day at 3 AM for the next 3 days. Performed By: #### M G, GFR, ANEU, ADIFF, CBC, CMP, A1C, LIPID #### [place] [address] MCH (RBC) [Entitic mass] 29.0 pg Normal 27.0-33.0 [facility] Comment on above: Order Comment: Colle ct blood every day at 3 AM for the next 3 days. Performed By: #### M G, GFR, ANEU, ADIFF, CBC, CMP, A1C, LIPID #### [place] [id number] MCHC 32.8 G/dL Normal 32.0-36.0 [facility] Comment on above: Order Comment: Colle ct blood every day at 3 AM for the next 3 days. Performed By: #### M G, GFR, ANEU, ADIFF, CBC, CMP, A1C, LIPID #### [place] [id number] MCV (RBC) [Entitic vol] 88.3 fL Normal 81.0-100.0 [facility] Comment on above: Order Comment: Colle ct blood every day at 3 AM for the next 3 days. Performed By: #### M G, GFR, ANEU, ADIFF, CBC, CMP, A1C, LIPID #### [place] [address] Platelet 127 10 3/mcL Low 150-450 [facility] Comment on above: Order Comment: Colle ct blood every day at 3 AM for the next 3 days. Performed By: #### M G, GFR, ANEU, ADIFF, CBC, CMP, A1C, LIPID #### [place] [address] Platelet mean volume (Bld) [Entitic vol] 7.7 fL Normal 6.4-10.5 [facility] Comment on above: Order Comment: Colle ct blood every day at 3 AM for the next 3 days. Performed By: #### M G, GFR, ANEU, ADIFF, CBC, CMP, A1C, LIPID #### [place] [address] RBC 4.70 10 6/mcL Normal 4.50-6.00 [facility] Comment on above: Order Comment: Colle ct blood every day at 3 AM for the next 3 days. Performed By: #### M G, GFR, ANEU, ADIFF, CBC, CMP, A1C, LIPID #### [place] [address] WBC 4.6 10 3/mcL Normal 4.5-10.8 [facility] Comment on above: Order Comment: Colle ct blood every day at 3 AM for the next 3 days. Performed By: #### M G, GFR, ANEU, ADIFF, CBC, CMP, A1C, LIPID #### [place] [address] LABORATORYOrdered By: SYSTEM SYSTEM on 10-18-2024 Basophils (Bld) [#/Vol] 0.0 103/mcL Normal 0.0 - 0.3 10^3/mcL AH Workflow SS Basophils/100 WBC (Bld) 0.6 % Normal 0.0 - 2.5 % AH Workflow SS Calcium [Mass/Vol] 8.7 mg/dL Normal 8.7 - 10. 4 mg/dL ADM SS Chloride [Moles/Vol] 99 mmol/L Normal 98 - 11 0 mEq/L AH ADM SS CO2 [Moles/Vol] 33 mmol/L High 22 - 32 mEq/L ADM SS Creatinine [Mass/Vol] 0.67 mg/dL Normal 0.60 - 1.40 mg/dL ADM SS Comment on above: Interpretive Data: T esting performed on Tactilize analyzer using enzymatic creatinine methodology. Electrolyte Balance 5.0 mEq/L Normal 4.0 - 15 .0 mEq/L AH ADM SS Eosinophils (Bld) [#/Vol] 0.1 103/mcL Normal 0.0 - 0.7 10^3/mcL [facility] Workflow SS Eosinophils/100 WBC (Bld) 1.7 % Normal 0.0 - 6.0 % AH Workflow SS Erythrocyte distribution width (RBC) [Ratio] 17.3 % High 11.5 - 15.5 % AH Workflow SS Estimated Glomerular Filtration Rate 112 ml/min/1.73sqm Invalid Interpretation Code Chemistry S Comment on above: Interpretive Data: Stages of Chronic Kidney Disease (CKD) Stage Description eGFR(ml/min/1.73 sq.m.) CKD 1 Normal kidney function or >=90 normal kindney function with possible kidney damage (ex. Proteinuria) CKD 2 Kidney damage with mild loss 60-89 of kidney function CKD 3a Mild to moderate loss of kidney 45-59 function CKD 3b Moderate to severe loss of 30-44 of kindey function CKD 4 Severe loss of kidney function 15-29 CKD 5 Kidney failure <15 Note: (go live 2024) the eGFR calculation was updated to the 2020 CKD-EPI creatinine equation without a race factor to calculate the eGFR results. Glucose [Mass/Vol] 115 mg/dL High 70 - 110 mg/dL ADM SS Hematocrit (Bld) [Volume fraction] 41.4 % Normal 40.0 - 52.0 % AH Workflow SS Hemoglobin (Bld) [Mass/Vol] 13.5 G/dL Normal 13.0 - 17.5 G/dL AH Workflow SS Lymphocytes (Bld) [#/Vol] 1.2 103/mcL Normal 0.9 - 4.3 10^3/mcL AH Workflow SS Lymphocytes/100 WBC (Bld) 19.0 % Low 20.0 - 40.0 % AH Workflow SS MCH (RBC) [Entitic mass] 28.9 pg Normal 27.0 - 33.0 pg AH Workflow SS MCHC 32.7 G/dL Normal 32.0 - 36.0 G/dL AH Workflow SS MCV (RBC) [Entitic vol] 88.4 fL Normal 81.0 - 100.0 fL AH Workflow SS Monocytes (Bld) [#/Vol] 0.9 103/mcL Normal 0.1 - 1.4 10^3/mcL AH Workflow SS Monocytes/100 WBC (Bld) 14.1 % High 2.0 - 13.0 % Workflow SS Neutrophils (Bld) [#/Vol] 3.9 103/mcL Normal 2.3 - 8.1 10^3/mcL Workflow SS Neutrophils/100 WBC (Bld) 64.6 % Normal 50.0 - 75.0 % Workflow SS Platelet mean volume (Bld) [Entitic vol] 7.9 fL Normal 6.4 - 10.5 fL Workflow SS Platelets (Bld) [#/Vol] 158 103/mcL Normal 150 - 450 10^3/mcL Workflow SS Potassium [Moles/Vol] 3.4 mmol/L Low 3.5 - 5.0 mEq/L ADM SS RBC (Bld) [#/Vol] 4.68 106/mcL Normal 4.50 - 6.0 0 10^6/mcL Workflow SS Sodium [Moles/Vol] 137 mmol/L Normal 136 - 145 mEq/L ADM SS Urea nitrogen [Mass/Vol] 6.0 mg/dL Low 8.0 - 22.0 mg/dL ADM SS Urea nitrogen/Creatinine [Mass ratio] 9.0 ratio Low 10.0 - 22.0 ratio ADM SS WBC (Bld) [#/Vol] 6.1 103/mcL Normal 4.5 - 10.8 10^3/mcL Workflow SS .Auto Diffon 10-17-2024 Basophil, Absolute 0.0 10 3/mcL Normal 0.0-0.3 [facility] Comment on above: Performed By: #### M G, GFR, ANEU, ADIFF, CBC, CMP, A1C, LIPID #### [address] [address] Basophils/100 WBC (Bld) 0.6 % Normal 0.0-2.5 [facility] Comment on above: Performed By: #### M G, GFR, ANEU, ADIFF, CBC, CMP, A1C, LIPID #### [place] [id number] [place] [address] Eosinophil, Absolute 0.1 10 3/mcL Normal 0.0-0.7 [facility] Comment on above: Performed By: #### M G, GFR, ANEU, ADIFF, CBC, CMP, A1C, LIPID #### [place] [id number] [place] [address] Eosinophils/100 WBC (Bld) 1.1 % Normal 0.0-6.0 [facility] Comment on above: Performed By: #### M G, GFR, ANEU, ADIFF, CBC, CMP, A1C, LIPID #### [address] [address] Lymphocyte, Absolute 0.9 10 3/mcL Normal 0.9-4.3 [facility] Comment on above: Performed By: #### M G, GFR, ANEU, ADIFF, CBC, CMP, A1C, LIPID #### [address] [address] Lymphocytes/100 WBC (Bld) 17.7 % Low 20.0-40.0 [facility] Comment on above: Performed By: #### M G, GFR, ANEU, ADIFF, CBC, CMP, A1C, LIPID #### [address] [address] Monocyte, Absolute 0.6 10 3/mcL Normal 0.1-1.4 [facility] Comment on above: Performed By: #### M G, GFR, ANEU, ADIFF, CBC, CMP, A1C, LIPID #### [address] [address] Monocytes/100 WBC (Bld) 11.1 % Normal 2.0-13.0 [facility] Comment on above: Performed By: #### M G, GFR, ANEU, ADIFF, CBC, CMP, A1C, LIPID #### [address] [address] Neutrophils/100 WBC (Bld) 69.5 % Normal 50.0-75.0 [facility] Comment on above: Performed By: #### M G, GFR, ANEU, ADIFF, CBC, CMP, A1C, LIPID #### [address] [address] .GFRon 10-17-2024 Estimated Glomerular Filtration Rate 113 ml/min/1.73sqm Normal [facility] Comment on above: Result Comment: Stages of Chronic Kidney Disease (CKD) Stage Description eGFR(ml/min/1.73 sq.m.) CKD 1 Normal kidney function or >=90 normal kindney function with possible kidney damage (ex. Proteinuria) CKD 2 Kidney damage with mild loss 60-89 of kidney function CKD 3a Mild to moderate loss of kidney 45-59 function CKD 3b Moderate to severe loss of 30-44 of kindey function CKD 4 Severe loss of kidney function 15-29 CKD 5 Kidney failure <15 Note: (go live 2024) the eGFR calculation was updated to the 2020 CKD-EPI creatinine equation without a race factor to calculate the eGFR results. Performed By: #### M G, GFR, ANEU, ADIFF, CBC, CMP, A1C, LIPID #### [address] [address] .NEUABSon 10-17-2024 Neutrophil, Absolute 3.7 10 3/mcL Normal 2.3-8.1 [facility] Comment on above: Performed By: #### M G, GFR, ANEU, ADIFF, CBC, CMP, A1C, LIPID #### [address] [address] BMPon 10-17-2024 BUN/Creatinine Ratio 7.7 ratio Low 10.0-22.0 [facility] Comment on above: Performed By: #### M G, GFR, ANEU, ADIFF, CBC, CMP, A1C, LIPID #### [address] [address] Calcium [Mass/Vol] 8.5 mg/dL Low 8.7-10.4 [facility] Comment on above: Performed By: #### M G, GFR, ANEU, ADIFF, CBC, CMP, A1C, LIPID #### [address] [address] Chloride [Moles/Vol] 101 mmol/L Normal 98-110 [facility] Comment on above: Performed By: #### M G, GFR, ANEU, ADIFF, CBC, CMP, A1C, LIPID #### [address] [address] CO2 [Moles/Vol] 31 mmol/L Normal 22-32 [facility] Comment on above: Performed By: #### M G, GFR, ANEU, ADIFF, CBC, CMP, A1C, LIPID #### [place] [id number] Creatinine [Mass/Vol] 0.65 mg/dL Normal 0.60-1.40 [facility] Comment on above: Result Comment: Test ing performed on Tactilize analyzer using enzymatic creatinine methodology. Performed By: #### M G, GFR, ANEU, ADIFF, CBC, CMP, A1C, LIPID #### [place] [id number] Electrolyte Balance 7.0 mEq/L Normal 4.0-15.0 [facility] Comment on above: Performed By: #### M G, GFR, ANEU, ADIFF, CBC, CMP, A1C, LIPID #### [place] [id number] Glucose [Mass/Vol] 120 mg/dL High 70-110 [facility] Comment on above: Performed By: #### M G, GFR, ANEU, ADIFF, CBC, CMP, A1C, LIPID #### [place] [id number] Potassium [Moles/Vol] 3.3 mmol/L Low 3.5-5.0 [facility] Comment on above: Performed By: #### M G, GFR, ANEU, ADIFF, CBC, CMP, A1C, LIPID #### [place] [id number] Sodium [Moles/Vol] 139 mmol/L Normal 136-145 [facility] Comment on above: Performed By: #### M G, GFR, ANEU, ADIFF, CBC, CMP, A1C, LIPID #### [place] [id number] Urea nitrogen [Mass/Vol] 5.0 mg/dL Low 8.0-22.0 [facility] Comment on above: Performed By: #### M G, GFR, ANEU, ADIFF, CBC, CMP, A1C, LIPID #### [address] [address] CBCon 10-17-2024 Erythrocyte distribution width (RBC) [Ratio] 17.0 % High 11.5-15.5 [facility] Comment on above: Performed By: #### M G, GFR, ANEU, ADIFF, CBC, CMP, A1C, LIPID #### [place] [address] Hematocrit (Bld) [Volume fraction] 40.3 % Normal 40.0-52.0 [facility] Comment on above: Performed By: #### M G, GFR, ANEU, ADIFF, CBC, CMP, A1C, LIPID #### [place] [id number] Hgb 13.2 G/dL Normal 13.0-17.5 [facility] Comment on above: Performed By: #### M G, GFR, ANEU, ADIFF, CBC, CMP, A1C, LIPID #### [place] [address] MCH (RBC) [Entitic mass] 28.6 pg Normal 27.0-33.0 [facility] Comment on above: Performed By: #### M G, GFR, ANEU, ADIFF, CBC, CMP, A1C, LIPID #### [place] [address] MCHC 32.6 G/dL Normal 32.0-36.0 [facility] Comment on above: Performed By: #### M G, GFR, ANEU, ADIFF, CBC, CMP, A1C, LIPID #### [place] [address] MCV (RBC) [Entitic vol] 87.6 fL Normal 81.0-100.0 [facility] Comment on above: Performed By: #### M G, GFR, ANEU, ADIFF, CBC, CMP, A1C, LIPID #### [place] [address] Platelet 132 10 3/mcL Low 150-450 [facility] Comment on above: Performed By: #### M G, GFR, ANEU, ADIFF, CBC, CMP, A1C, LIPID #### [place] [address] Platelet mean volume (Bld) [Entitic vol] 7.8 fL Normal 6.4-10.5 [facility] Comment on above: Performed By: #### M G, GFR, ANEU, ADIFF, CBC, CMP, A1C, LIPID #### [facility] [address] [place] [address] RBC 4.60 10 6/mcL Normal 4.50-6.00 [facility] Comment on above: Performed By: #### M G, GFR, ANEU, ADIFF, CBC, CMP, A1C, LIPID #### [facility] [address] [place] [address] WBC 5.4 10 3/mcL Normal 4.5-10.8 [facility] Comment on above: Performed By: #### M G, GFR, ANEU, ADIFF, CBC, CMP, A1C, LIPID #### [facility] [address] [place] [address] ANKLE W/O CONTRAST RIGHTo n 10-17-2024 CT ANKLE W/O CONTRAST RIGHT ORIGINAL EXAMINATION: CT OF THE RIGHT ANKLE WITHOUT CONTRAST10/17/2024 11:02 am COMPARISON: Radiographs 10/16/2024 TECHNIQUE: CT of the right ankle was performed without the administration of intravenous contrast. Multiplanar reformatted images are provided for review. Automated exposure control, iterative reconstruction, and/or weight based adjustment of the mA/kV was utilized to reduce the radiation dose to as low as reasonably achievable. HISTORY: ORDERING SYSTEM PROVIDED HISTORY: Reason for Exam: s/p Right ankle spanning external fixator, multiplanar 10/17. transfer from [facility]. for right ankle fracture with dislocation. Surgical planning, right ankle fracture, FINDINGS: There is external fixator extending through the calcaneus. The proximal fixator is not included. There is some hardware artifact at this level. There is again demonstration of a mildly comminuted and mildly displaced oblique fracture of the distal fibula with extension to the level of the superior portion of the distal tibia-fibular syndesmosis without syndesmotic joint widening. There is no involvement of the lateral malleolus by acute fracture. There are multiple well corticated ossicles distal to the lateral malleolus that may be remote avulsions. No acute fracture of the tibia is seen. There are multiple well corticated ossicles distal to the medial malleolus also nonacute. Tibiotalar alignment is normal. There are no fractures of the tarsal bones seen on this study. Lisfranc joints seem to be intact. 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 There is nonspecific soft tissue edema but no localized hematoma is seen. IMPRESSION: Mildly displaced mildly comminuted distal fibular fracture. No other acute fracture or dislocation is seen at the ankle. Interpreted by: Lucius Reveles MD Preliminary Report By: Lucius Reveles MD Electronically signed By Lucius Reveles MD Dictated Date: 10/17/2024 1:10:32 PM Prelim Date: 10/17/2024 1:17:29 PM Sign Date: 10/17/2024 1:17:29 PM Ordering Provider: TAAR MISHRA [facility] MAIN LABORATORYOrdered By: SYSTEM SYSTEM on 10-17-2024 PT Coag (PPP) [Time] 13.7 s Normal 9.0 - 1 4.4 seconds SILVIA HASSAN Comment on above: Interpretive Data: E ffective 12/11/07, Protime results may be affected by some antibiotics (i.e. Ciprofloxacin, Azithromycin, Bactrim) which may potentiate the action of oral anticoagulants, with further increases in Protime/INR. PT International Ratio 1.2 ratio Invalid Interpretation Code Lala HASSAN Comment on above: Interpretive Data: T temitope [employer] (CHEST, 1991, [id number]) recommended therapeutic range for oral anticoagulant therapy is: LOW RISK: Prophylaxis of venous thrombosis INR: 2.0-3.0 Treatment of pulmonary embolism 2.0-3.0 Prevention of systemic embolism 2.0-3.0 HIGH RISK: Mechanical prosthetic valves 2.5-3.5 PROon 10-17-2024 INR Coag (PPP) [Relative time] 1.2 {INR} [facility] MAIN Comment on above: Result Comment: [employer] (CHEST, 1991, 102:312S-25S) recommended therapeutic range for oral anticoagulant therapy is: LOW RISK: Prophylaxis of venous thrombosis INR: 2.0-3.0 Treatment of pulmonary embolism 2.0-3.0 Prevention of systemic embolism 2.0-3.0 HIGH RISK: Mechanical prosthetic valves 2.5-3.5 Performed By: #### M G, GFR, ANEU, ADIFF, CBC, CMP, A1C, LIPID #### [place] [id number] [place] [address] PT Coag (PPP) [Time] 13.7 s Normal 9.0-14.4 [facility] Comment on above: Result Comment: Effe ctive 12/11/07, Protime results may be affected by some antibiotics (i.e. Ciprofloxacin, Azithromycin, Bactrim) which may potentiate the action of oral anticoagulants, with further increases in Protime/INR. Performed By: #### M G, GFR, ANEU, ADIFF, CBC, CMP, A1C, LIPID #### [address] [address] XR FLUORO 1-2 HRS TECH TIMEo n 10-17-2024 XR FLUORO 1-2 HRS TECH TIME ORIGINAL EXAMINATION: FLUORO MD - > 1 HR TECHNIQUE: Total fluoro time is 43.2 seconds. Total exposure is 2.0531 mGy. COMPARISON: CT ankle 10/17/2024, x-ray ankle 10/16/2024. HISTORY: ORDERING SYSTEM PROVIDED HISTORY: Reason for Exam: RIGHT ANKLE FX FINDINGS: Intraoperative fluoroscopic images from external surgical fixation of a distal fibular fracture. IMPRESSION: Intraoperative fluoroscopic images. Please refer to the proof operator's report for further information. I have personally reviewed the images of this examination and agree with the resident's findings and interpretation. Interpreted by: Corey Wahl Preliminary Report By: Nadya Hudson Electronically signed By Corey Wahl Dictated Date: 10/17/2024 1:42:02 PM Prelim Date: 10/17/2024 2:15:08 PM Sign Date: 10/17/2024 2:15:08 PM Ordering Provider: NANI Kate [facility] .Auto Diffon 10-16-2024 Basophil, Absolute 0.1 10 3/mcL Normal 0.0-0.3 [facility] Comment on above: Performed By: #### C MARGAUX, MD LILIANAW, ADIFF #### [address] [address] Basophils/100 WBC (Bld) 0.8 % Normal 0.0-2.5 [facility] Comment on above: Performed By: #### C BC, MD LILIANAW, ADIFF #### [address] [address] Eosinophil, Absolute 0.1 10 3/mcL Normal 0.0-0.7 [facility] Comment on above: Performed By: #### LILIANA VILLA MDW, ADIFF #### [address] [address] Eosinophils/100 WBC (Bld) 1.2 % Normal 0.0-6.0 [facility] Comment on above: Performed By: #### C LILIANA DAMICO MDW, ADIFF #### [address] [address] Lymphocyte, Absolute 1.4 10 3/mcL Normal 0.9-4.3 [facility] Comment on above: Performed By: #### C LILIANA DAMICO MDW, ADIFF #### [address] [address] Lymphocytes/100 WBC (Bld) 19.8 % Low 20.0-40.0 [facility] Comment on above: Performed By: #### C LILIANA DAMICO MDW, ADIFF #### [address] [address] Monocyte, Absolute 0.7 10 3/mcL Normal 0.1-1.4 [facility] Comment on above: Performed By: #### C LILIANA DAMICO MDW, ADIFF #### [address] [address] Monocytes/100 WBC (Bld) 10.7 % Normal 2.0-13.0 [facility] Comment on above: Performed By: #### C LILIANA DAMICO MDW, ADIFF #### [address] [address] Neutrophils/100 WBC (Bld) 67.5 % Normal 50.0-75.0 [facility] Comment on above: Performed By: #### LILIANA VILLA MDW, ADIFF #### [address] [address] Basophil, Absolute 0.0 10 3/mcL Normal 0.0-0.3 [facility] Comment on above: Performed By: #### M G, GFR, LILIANA, ADMAURICIO, CBC, CMP, A1C, LIPID #### [address] [address] Basophils/100 WBC (Bld) 0.7 % Normal 0.0-2.5 [facility] Comment on above: Performed By: #### M G, GFR, ANEU, ADIFF, CBC, CMP, A1C, LIPID #### [address] [address] Eosinophil, Absolute 0.1 10 3/mcL Normal 0.0-0.7 [facility] Comment on above: Performed By: #### M G, GFR, ANEU, ADIFF, CBC, CMP, A1C, LIPID #### [address] [address] Eosinophils/100 WBC (Bld) 0.8 % Normal 0.0-6.0 [facility] Comment on above: Performed By: #### M G, GFR, ANEU, ADIFF, CBC, CMP, A1C, LIPID #### [address] [address] Lymphocyte, Absolute 1.1 10 3/mcL Normal 0.9-4.3 [facility] Comment on above: Performed By: #### M G, GFR, ANEU, ADIFF, CBC, CMP, A1C, LIPID #### [address] [address] Lymphocytes/100 WBC (Bld) 17.2 % Low 20.0-40.0 [facility] Comment on above: Performed By: #### M G, GFR, ANEU, ADIFF, CBC, CMP, A1C, LIPID #### [address] [address] Monocyte, Absolute 0.6 10 3/mcL Normal 0.1-1.4 [facility] Comment on above: Performed By: #### M G, GFR, ANEU, ADIFF, CBC, CMP, A1C, LIPID #### [address] [address] Monocytes/100 WBC (Bld) 8.7 % Normal 2.0-13.0 [facility] Comment on above: Performed By: #### M G, GFR, ANEU, ADIFF, CBC, CMP, A1C, LIPID #### [address] [address] Neutrophils/100 WBC (Bld) 72.6 % Normal 50.0-75.0 [facility] Comment on above: Performed By: #### M G, GFR, ANEU, ADIFF, CBC, CMP, A1C, LIPID #### [address] [address] .GFRon 10-16-2024 Estimated Glomerular Filtration Rate 110 ml/min/1.73sqm [facility] MAIN Comment on above: Result Comment: Stages of Chronic Kidney Disease (CKD) Stage Description eGFR(ml/min/1.73 sq.m.) CKD 1 Normal kidney function or >=90 normal kindney function with possible kidney damage (ex. Proteinuria) CKD 2 Kidney damage with mild loss 60-89 of kidney function CKD 3a Mild to moderate loss of kidney 45-59 function CKD 3b Moderate to severe loss of 30-44 of kindey function CKD 4 Severe loss of kidney function 15-29 CKD 5 Kidney failure <15 Note: ( live 07/02/2024) the eGFR calculation was updated to the 2020 CKD-EPI creatinine equation without a race factor to calculate the eGFR results. Performed By: #### M G, GFR, ANEU, ADIFF, CBC, CMP, A1C, LIPID #### [place] [address] Estimated Glomerular Filtration Rate 111 ml/min/1.73sqm [facility] MAIN Comment on above: Result Comment: Stages of Chronic Kidney Disease (CKD) Stage Description eGFR(ml/min/1.73 sq.m.) CKD 1 Normal kidney function or >=90 normal kindney function with possible kidney damage (ex. Proteinuria) CKD 2 Kidney damage with mild loss 60-89 of kidney function CKD 3a Mild to moderate loss of kidney 45-59 function CKD 3b Moderate to severe loss of 30-44 of kindey function CKD 4 Severe loss of kidney function 15-29 CKD 5 Kidney failure <15 Note: ( live 07/02/2024) the eGFR calculation was updated to the 2020 CKD-EPI creatinine equation without a race factor to calculate the eGFR results. Performed By: #### M G, GFR, ANEU, ADIFF, CBC, CMP, A1C, LIPID #### [address] [address] .MDWon 10-16-2024 Monocyte Distribution Width 19.45 Normal 0.00-20.00 [facility] Comment on above: Result Comment: For ED adult patients suspected of sepsis, MDW<=20.0 does not rule out sepsis or risk of sepsis Performed By: #### M G, GFR, ANEU, ADIFF, CBC, CMP, A1C, LIPID #### [place] [address] Monocyte Distribution Width 17.52 Normal 0.00-20.00 [facility] Comment on above: Result Comment: For ED adult patients suspected of sepsis, MDW<=20.0 does not rule out sepsis or risk of sepsis Performed By: #### M G, GFR, ANEU, ADIFF, CBC, CMP, A1C, LIPID #### [place] [address] .NEUABSon 10-16-2024 Neutrophil, Absolute 4.7 10 3/mcL Normal 2.3-8.1 [facility] Comment on above: Performed By: #### M G, GFR, ANEU, ADIFF, CBC, CMP, A1C, LIPID #### [place] [address] Neutrophil, Absolute 4.7 10 3/mcL Normal 2.3-8.1 [facility] Comment on above: Performed By: #### M G, GFR, ANEU, ADIFF, CBC, CMP, A1C, LIPID #### [place] [address] ABO/Rh (Gel)on 10-16-2024 ABO/Rh Interp Positive Invalid Interpretation Code [facility] Comment on above: Performed By: #### M G, GFR, ANEU, ADIFF, CBC, CMP, A1C, LIPID #### [place] [id number] ABS (Gel)on 10-16-2024 ABSC Interp (Gel) Negative Normal [facility] Comment on above: Performed By: #### M G, GFR, ANEU, ADIFF, CBC, CMP, A1C, LIPID #### [place] [id number] Stefanie 10-16-2024 Ethanol Level <10.0 Normal [facility] Comment on above: Performed By: #### M G, GFR, ANEU, ADIFF, CBC, CMP, A1C, LIPID #### [facility] [address] [place] [address] ANKLE COMPLETE RTon 10-17-19 25 ANKLE COMPLETE RT [facility] [address] [place], [place] [address] Patient: SOCORRO KELLEY Phone#: : [phone] Age: 54 Gender: M Pt. Type: ER Account: [id number] Location: [facility] Ordering: JAKE MAXWELL Exam Date: 10/16/2024/13:23 Family Phys: Charge Code: 014452 Physician: [place] Order #: [id number] Dose#: PROCEDURE: X-RAY ANKLE COMPLETE RT MIN 3 VIEWS COMPARISON: None. INDICATIONS: Trauma. FINDINGS: BONES: Spiral fracture of the distal fibula. The fracture is above the distal tibial articulation. There is disruption of the tibiotalar articulation. The talus is laterally displaced 1.0 cm. There is widening of the medial malleolus and tibial articulation. Ossification adjacent to the tip of the lateral malleolus consistent with remote trauma. Ossifications adjacent to the medial aspect of the talus, may be sequela of remote trauma though cannot exclude avulsion fragments. Os trigonum measuring 0.8 x 1.4 cm small calcaneal spur measuring 0.3 cm. SOFT TISSUES: There is soft tissue swelling of the ankle. EFFUSION: None visible. OTHER: Negative. CONCLUSION: 1. Spiral fracture of the distal fibula 2. Disruption of the tibiotalar articulation with lateral subluxation of the talus. Dictated by: Corrine Bagley MD on 10/16/2024 at 14:13 Approved by: Corrine Bagley MD on 10/16/2024 at 14:15 Normal [facility] BMPon 10-16-2024 BUN/Creatinine Ratio 15.9 ratio Normal 10.0-22.0 [facility] Comment on above: Performed By: #### M G, GFR, ANEU, ADIFF, CBC, CMP, A1C, LIPID #### [address] [address] Calcium [Mass/Vol] 9.4 mg/dL Normal 8.7-10.4 [facility] Comment on above: Performed By: #### M G, GFR, ANEU, ADIFF, CBC, CMP, A1C, LIPID #### [address] [address] Chloride [Moles/Vol] 103 mmol/L Normal 98-110 [facility] Comment on above: Performed By: #### M G, GFR, ANEU, ADIFF, CBC, CMP, A1C, LIPID #### [address] [address] CO2 [Moles/Vol] 32 mmol/L Normal 22-32 [facility] Comment on above: Performed By: #### M G, GFR, ANEU, ADIFF, CBC, CMP, A1C, LIPID #### [address] [address] Creatinine [Mass/Vol] 0.69 mg/dL Normal 0.60-1.40 [facility] Comment on above: Result Comment: Test ing performed on Tactilize analyzer using enzymatic creatinine methodology. Performed By: #### M G, GFR, ANEU, ADIFF, CBC, CMP, A1C, LIPID #### [address] [address] Electrolyte Balance 5.0 mEq/L Normal 4.0-15.0 [facility] Comment on above: Performed By: #### M G, GFR, ANEU, ADIFF, CBC, CMP, A1C, LIPID #### [address] [address] Glucose [Mass/Vol] 94 mg/dL Normal 70-110 [facility] Comment on above: Performed By: #### M G, GFR, ANEU, ADIFF, CBC, CMP, A1C, LIPID #### [address] [address] Potassium [Moles/Vol] 3.6 mmol/L Normal 3.5-5.0 [facility] Comment on above: Performed By: #### M G, GFR, ANEU, ADIFF, CBC, CMP, A1C, LIPID #### [place] [id number] Sodium [Moles/Vol] 140 mmol/L Normal 136-145 [facility] Comment on above: Performed By: #### M G, GFR, ANEU, ADIFF, CBC, CMP, A1C, LIPID #### [place] [id number] Urea nitrogen [Mass/Vol] 11.0 mg/dL Normal 8.0-22.0 [facility] Comment on above: Performed By: #### M G, GFR, ANEU, ADIFF, CBC, CMP, A1C, LIPID #### [place] [id number] CBCon 10-16-2024 Erythrocyte distribution width (RBC) [Ratio] 16.5 % High 11.5-15.5 [facility] Comment on above: Performed By: #### C LILIANA DAMICO MDW, ADIFF #### [place] [id number] Hematocrit (Bld) [Volume fraction] 45.2 % Normal 40.0-52.0 [facility] Comment on above: Performed By: #### C LILIANA DAMICO MDW, ADIFF #### [place] [address] Hgb 14.8 G/dL Normal 13.0-17.5 [facility] Comment on above: Performed By: #### C LILIANA DAMICO MDW, ADIFF #### [place] [id number] MCH (RBC) [Entitic mass] 28.8 pg Normal 27.0-33.0 [facility] Comment on above: Performed By: #### C LILIANA DAMICO MDW, ADIFF #### [place] [id number] MCHC 32.8 G/dL Normal 32.0-36.0 [facility] Comment on above: Performed By: #### C LILIANA DAMICO MDW, ADIFF #### [facility] [address] [place], [place] [address] MCV (RBC) [Entitic vol] 87.8 fL Normal 81.0-100.0 [facility] Comment on above: Performed By: #### C LILIANA DAMICO MDW, ADIFF #### [address] [address] Platelet 172 10 3/mcL Normal 150-450 [facility] Comment on above: Performed By: #### C LILIANA DAMICO MDW, ADIFF #### [address] [address] Platelet mean volume (Bld) [Entitic vol] 7.9 fL Normal 6.4-10.5 [facility] Comment on above: Performed By: #### C LILIANA DAMICO MDW, ADIFF #### [place] [id number] RBC 5.14 10 6/mcL Normal 4.50-6.00 [facility] Comment on above: Performed By: #### C LILIANA DAMICO MDW, ADIFF #### [address] [address] WBC 6.9 10 3/mcL Normal 4.5-10.8 [facility] Comment on above: Performed By: #### C LILIANA DAMICO MDW, ADIFF #### [address] [address] Erythrocyte distribution width (RBC) [Ratio] 17.1 % High 11.5-15.5 [facility] Comment on above: Performed By: #### M G, GFR, ANEU, ADMAURICIO, CBC, CMP, A1C, LIPID #### [address] [address] Hematocrit (Bld) [Volume fraction] 43.2 % Normal 40.0-52.0 [facility] Comment on above: Performed By: #### M G, GFR, ANEU, ADMAURICIO, CBC, CMP, A1C, LIPID #### [address] [address] Hgb 14.3 G/dL Normal 13.0-17.5 [facility] Comment on above: Performed By: #### M G, GFR, ANEU, ADMAURICIO, CBC, CMP, A1C, LIPID #### [place] [address] MCH (RBC) [Entitic mass] 28.9 pg Normal 27.0-33.0 [facility] Comment on above: Performed By: #### M G, GFR, ANEU, ADIFF, CBC, CMP, A1C, LIPID #### [place] [id number] MCHC 33.0 G/dL Normal 32.0-36.0 [facility] Comment on above: Performed By: #### M G, GFR, ANEU, ADIFF, CBC, CMP, A1C, LIPID #### [place] [address] MCV (RBC) [Entitic vol] 87.4 fL Normal 81.0-100.0 [facility] Comment on above: Performed By: #### M G, GFR, ANEU, ADIFF, CBC, CMP, A1C, LIPID #### [place] [address] Platelet 152 10 3/mcL Normal 150-450 [facility] Comment on above: Performed By: #### M G, GFR, ANEU, ADIFF, CBC, CMP, A1C, LIPID #### [place] [address] Platelet mean volume (Bld) [Entitic vol] 7.7 fL Normal 6.4-10.5 [facility] Comment on above: Performed By: #### M G, GFR, ANEU, ADIFF, CBC, CMP, A1C, LIPID #### [place] [address] RBC 4.94 10 6/mcL Normal 4.50-6.00 [facility] Comment on above: Performed By: #### M G, GFR, ANEU, ADIFF, CBC, CMP, A1C, LIPID #### [place] [address] WBC 6.5 10 3/mcL Normal 4.5-10.8 [facility] Comment on above: Performed By: #### M G, GFR, ANEU, ADIFF, CBC, CMP, A1C, LIPID #### [facility] [address] [place] [address] CBC + DIFFon 10-16-2024 Baso # 0.01 x10EE3/UL Normal 0.00 - 0.10 [facility] Comment on above: Performed By: #### 2 [address] #### [facility],[address] [place] [address] Basophils/100 WBC (Bld) 0.2 % Normal 0.0 - 2.0 [facility] Comment on above: Performed By: #### 2 [address] #### [facility],[address] [place] [address] CBC + DIFF Normal [facility] Comment on above: Result Comment: CBC- COMPLETE BLOOD COUNT Performed By: #### 2 [address] #### [facility],[address] [place] [address] EO # 0.04 x10EE3/UL Normal 0.00 - 0.50 [facility] Comment on above: Performed By: #### 2 52005 #### [facility],[address] [place] [address] Eosinophils/100 WBC (Bld) 0.7 % Normal 0.0 - 7.0 [facility] Comment on above: Performed By: #### 2 09267 #### [facility],[address] [place] [address] Erythrocyte distribution width (RBC) [Ratio] 15.2 % Normal 12.0 - 15.6 [facility] Comment on above: Performed By: #### 2 08409 #### [facility],[address] [place] [address] Hematocrit (Bld) [Volume fraction] 44.1 % Normal 40.0 - 52.0 [facility] Comment on above: Performed By: #### 2 367[address] #### [facility],[address] [place] [address] Hemoglobin (Bld) [Mass/Vol] 15.4 g/dL Normal 13.0 - 17.5 [facility] Comment on above: Performed By: #### 2 [address] #### [facility],[address] [place] [address] Lymph # 0.96 x10EE3/UL Normal 0.80 - 2.80 [facility] Comment on above: Performed By: #### 2 [address]000 #### [facility],[address] [place] [address] Lymphocytes/100 WBC (Bld) 17.1 % Low 20.0 - 45.0 [facility] Comment on above: Performed By: #### 2 [address]8786 #### [facility],[address] [place], [place] [id number] MANUAL DIFF N/A Normal [facility] Comment on above: Performed By: #### 2 90073 #### [facility],[address] [place] [address] MCH (RBC) [Entitic mass] 31 pg Normal 27 - 33 [facility] Comment on above: Performed By: #### 2 [address]27[address] #### [facility],[address] [place] [address] MCHC 35 X10 3 Normal 32 - 36 [facility] Comment on above: Performed By: #### 2 [address] #### [facility],[address] [place], [place] [address] MCV (RBC) [Entitic vol] 88 fL Normal 81 - 98 [facility] Comment on above: Performed By: #### 2 24808 #### [facility],[address] [place] [address] Ward # 0.47 x10EE3/UL Normal 0.20 - 1.00 [facility] Comment on above: Performed By: #### 2 64896 #### [facility],[address] [place] [address] MONOS % 8.4 % Normal 0.0 - 10.0 [facility] Comment on above: Performed By: #### 2 72051 #### [facility],[address] [place] [address] Morphology Rocky (Bld) [Interp] N/A Normal [facility] Comment on above: Performed By: #### 2 76643 #### [facility],[address] [place] [address] Neut # 4.12 x10EE3/UL Normal 1.50 - 7.10 [facility] Comment on above: Performed By: #### 2 28741 #### [facility],[address] [place] [address] Neutrophils/100 WBC (Bld) 73.6 % Normal 46.0 - 76.0 [facility] Comment on above: Performed By: #### 2 08525 #### [facility],[address] [place] [address] PLATELET 148 x10EE3/UL Low 150 - 450 [facility] Comment on above: Performed By: #### 2 93922 #### [facility],[address] [place] [address] Platelet mean volume (Bld) [Entitic vol] 8.1 fL Normal 6.4 - 10.5 [facility] Comment on above: Result Comment: AUTO MATED DIFFERENTIAL Performed By: #### 2 25093 #### [facility],[address] [place] [address] RBC 5.02 x 10EE6/UL Normal 4.50 - 6.00 [facility] Comment on above: Performed By: #### 2 82548 #### [facility],[address] [place] [address] WBC 5.6 x 10EE3/UL Normal 4.5 - 10.8 [facility] Comment on above: Performed By: #### 2 04002 #### [facility],[address] [place] [address] CMPon 10-16-2024 Albumin Level 3.6 G/dL Normal 3.2-4.8 [facility] Comment on above: Performed By: #### M G, GFR, ANEU, ADIFF, CBC, CMP, A1C, LIPID #### [address] [address] Albumin/Globulin [Mass ratio] 1.0 {ratio} Normal 0.9-1.6 [facility] Comment on above: Performed By: #### M G, GFR, ANEU, ADIFF, CBC, CMP, A1C, LIPID #### [address] [address] ALP [Catalytic activity/Vol] 70 U/L Normal 38-126 [facility] Comment on above: Performed By: #### M G, GFR, ANEU, ADIFF, CBC, CMP, A1C, LIPID #### [address] [address] ALT [Catalytic activity/Vol] 12 U/L Normal 12-55 [facility] Comment on above: Performed By: #### M G, GFR, ANEU, ADIFF, CBC, CMP, A1C, LIPID #### [address] [address] AST [Catalytic activity/Vol] 17 U/L Normal 8-34 [facility] Comment on above: Performed By: #### M G, GFR, ANEU, ADIFF, CBC, CMP, A1C, LIPID #### [address] [address] Bili Total 0.60 mg/dL Normal 0.20-1.20 [facility] Comment on above: Result Comment: Use of this assay is not recommended for patients undergoing treatment with eltrombopag due to the potential for falsely elevated results. Performed By: #### M G, GFR, ANEU, ADIFF, CBC, CMP, A1C, LIPID #### [address] [address] BUN/Creatinine Ratio 14.1 ratio Normal 10.0-22.0 [facility] Comment on above: Performed By: #### M G, GFR, ANEU, ADIFF, CBC, CMP, A1C, LIPID #### [address] [address] Calcium [Mass/Vol] 9.0 mg/dL Normal 8.7-10.4 [facility] Comment on above: Performed By: #### M G, GFR, ANEU, ADIFF, CBC, CMP, A1C, LIPID #### [address] [address] Chloride [Moles/Vol] 102 mmol/L Normal 98-110 [facility] Comment on above: Performed By: #### M G, GFR, ANEU, ADIFF, CBC, CMP, A1C, LIPID #### [address] [address] CO2 [Moles/Vol] 33 mmol/L High 22-32 [facility] Comment on above: Performed By: #### M G, GFR, ANEU, ADIFF, CBC, CMP, A1C, LIPID #### [place] [id number] Creatinine [Mass/Vol] 0.71 mg/dL Normal 0.60-1.40 [facility] Comment on above: Result Comment: Test ing performed on Tactilize analyzer using enzymatic creatinine methodology. Performed By: #### M G, GFR, ANEU, ADIFF, CBC, CMP, A1C, LIPID #### [address] [address] Electrolyte Balance 4.0 mEq/L Normal 4.0-15.0 [facility] Comment on above: Performed By: #### M G, GFR, ANEU, ADIFF, CBC, CMP, A1C, LIPID #### [address] [address] Globulin 3.5 G/dL Normal 2.5-4.2 [facility] Comment on above: Performed By: #### M G, GFR, ANEU, ADIFF, CBC, CMP, A1C, LIPID #### [address] [address] Glucose [Mass/Vol] 109 mg/dL Normal 70-110 [facility] Comment on above: Performed By: #### M G, GFR, ANEU, ADIFF, CBC, CMP, A1C, LIPID #### [address] [address] Potassium [Moles/Vol] 3.7 mmol/L Normal 3.5-5.0 [facility] Comment on above: Performed By: #### M G, GFR, ANEU, ADIFF, CBC, CMP, A1C, LIPID #### [address] [address] Sodium [Moles/Vol] 139 mmol/L Normal 136-145 [facility] Comment on above: Performed By: #### M G, GFR, ANEU, ADIFF, CBC, CMP, A1C, LIPID #### [address] [address] Total Protein 7.1 G/dL Normal 5.7-8.2 [facility] Comment on above: Performed By: #### M G, GFR, ANEU, ADIFF, CBC, CMP, A1C, LIPID #### [address] [address] Urea nitrogen [Mass/Vol] 10.0 mg/dL Normal 8.0-22.0 [facility] Comment on above: Performed By: #### M G, GFR, ANEU, ADIFF, CBC, CMP, A1C, LIPID #### [address] [address] CMP with eGFRon 10-16-2024 AGE 54 years Normal [facility] Comment on above: Performed By: #### 2 [address]8530 ####[facility],[address] [place] [address] Albumin [Mass/Vol] 3.4 g/dL Normal 3.4 - 5.0 [facility] Comment on above: Performed By: #### 2 30617 ####[facility],[address] [place] [address] Albumin/Globulin [Mass ratio] 0.9 {ratio} Normal 0.9 - 1.6 [facility] Comment on above: Performed By: #### 2 27961 ####[facility],[address] [place] [address] ALK PHOS 76 U/L Normal 46 - 116 [facility] Comment on above: Performed By: #### 2 16547 ####[facility],[address] [place] [id number] ALT [Catalytic activity/Vol] 17 U/L Normal 16 - 63 [facility] Comment on above: Performed By: #### 2 [id number] ####[facility],[address] [place] [address] 19021 Anion gap [Moles/Vol] 11 mmol/L Normal 10 - 20 [facility] Comment on above: Performed By: #### 2 54920 ####[facility],[address] [place] [address] 15635 AST [Catalytic activity/Vol] 17 U/L Normal 15 - 37 [facility] Comment on above: Performed By: #### 2 18518 ####[facility],[address] [place] [address] 36897 B/C RATIO 13 ratio Normal 0 - 30 [facility] Comment on above: Performed By: #### 2 07825 ####[facility],[address] [place] [address] 37269 Bilirubin [Mass/Vol] 0.5 mg/dL Normal 0.2 - 1.0 [facility] Comment on above: Performed By: #### 2 30099 ####[facility],[address] [place] [address] 79794 Calcium [Mass/Vol] 8.9 mg/dL Normal 8.5 - 10.1 [facility] Comment on above: Performed By: #### 2 24930 ####[facility],[address] [place] [address] 60878 Chloride [Moles/Vol] 101 mmol/L Normal 98 - 107 [facility] Comment on above: Performed By: #### 2 46061 ####[facility],[address] [place] [address] 42849 CMP with eGFR Normal [facility] Comment on above: Result Comment: COMP REHENSIVE METABOLIC PANEL Performed By: #### 2 50138 ####[facility],[address] [place] [address] 99184 CO2 [Moles/Vol] 30.7 mmol/L Normal 21.0 - 32.0 [facility] Comment on above: Performed By: #### 2 24781 ####[facility],[address] [place] [address] 94077 Creatinine [Mass/Vol] 0.96 mg/dL Normal 0.70 - 1.30 [facility] Comment on above: Performed By: #### 2 42992 ####[facility],[address] [place] [address] 48714 GFR/1.73 sq M.predicted among non-blacks MDRD (S/P/Bld) [Vol rate/Area] mL/min/{1.73_m2} Normal 60 - 999 [facility] Comment on above: Performed By: #### 2 98798 ####[facility],[address] [place] [address] 03842 Result Comment: ACCO RDING TO THE NATIONAL KIDNEY DISEASE EDUCATION PROGRAM(NKDE), A NORMAL eGFR IS A VALUE GREATER THAN OR EQUAL TO 60 ML/MIN/1.73 SQ METERS. CHRONIC KIDNEY DISEASE: <60mL/MIN/1.73 SQ METERS KIDNEY FAILURE: <15mL/MIN/1.73 SQ METERS THIS TEST SHOULD ONLY BE USED FOR PATIENTS 18 YEARS OF AGE AND OLDER. Globulin (S) [Mass/Vol] 3.7 g/dL Normal 1.5 - 3.8 [facility] Comment on above: Performed By: #### 2 63493 ####[facility],[address] [place] [address] 24958 Glucose [Mass/Vol] 94 mg/dL Normal 74 - 106 [facility] Comment on above: Performed By: #### 2 67338 ####[facility],[address] [place] [address] 98666 Potassium [Moles/Vol] 3.6 mmol/L Normal 3.5 - 5.1 [facility] Comment on above: Performed By: #### 2 01581 ####[address] [address] Protein [Mass/Vol] 7.1 g/dL Normal 6.4 - 8.2 [facility] Comment on above: Performed By: #### 2 58056 ####[address] [address] Sodium [Moles/Vol] 139 mmol/L Normal 136 - 145 [facility] Comment on above: Performed By: #### 2 28881 ####[address] [address] Urea nitrogen [Mass/Vol] 12 mg/dL Normal 7 - 18 [facility] Comment on above: Performed By: #### 2 63835 ####[address] [address] ED MED ADMINISTRATION DETAIL on 10-16-2024 ED MED ADMINISTRATION DETAIL Layout Former [place] [address] [id number] 10/16/2024 Patient: SOCORRO KELLEY Sex: Male : 1970 Age: 54y MEASUREMENTS: Wt: 140.2 kg, Ht/Wilson: 69.0 in, BMI: 45.63 ALLERGIES: Fivnznn-JQX-MiB Reductase Inhibitors Medication Ordered Medication Administration Date/Time HYDROmorphone 13:10/16 HYDROmorphone (Dilaudid) IVP 0.5 mg given via Given (Dilaudid) IVP 0.5 Site# 1. Allergies verified and confirmed 5 rights. IV patency 13:10/16/2024 mg (NOW x1, HIGH established. IV site checked: no pain, redness, or swelling. IV Destiney Chu R.N. ALERT flushed thoroughly pre-medication administration. IVP given by Scanned MEDICATION) nurse. Information reviewed with patient. Medication Wastage: 0.5 mg wasted. - 13:14 Destiney Chu R.N. 14:11 10/16 Medication Response: No adverse reaction. Pain is improving. Symptoms have improved. The patient feels better. - 14:11 Destiney Chu R.N. 1 of 1 Normal [facility] ED NURSES CLINICAL NOTEon ED NURSES CLINICAL NOTE Nurse Narrative Nurse Clinical Narrative [address] [place] [address] [phone] 10/16/2024 12:34:00 Patient: SOCORRO KELLEY Sex: Male : 1970 Age: 54y Disposition: Transfer to [facility] Disposition Decision Time: 14:27 10/16/2024 Departure Time: 14:56 10/16/2024 TRIAGE Arrived by private vehicle. Historian: (patient). Accompanied by family. Triage time: 12:34 10/16/2024. Acuity: LEVEL 3. Chief Complaint: RIGHT LOWER EXTREMITY PAIN, SWELLING and REDNESS. Alert. No acute distress. Injury occurred. Location of injuries: right posterior ankle, right ankle, right lateral ankle, right medial ankle and right heel. The patient has had swelling, redness and trouble walking. Treatment JACQUARD LOOM WEAVER: Ice. SEPSIS SCREEN: NEGATIVE. SIRS criteria negative. No possible sources of infection. -- 12:47 10/16/24 EDT Silvina Maguire R.N. 12:47 10/16/24. BP: 171/95 MAP: 120. HR: 93. RR: 18. O2 saturation: 93% Temperature: 98.9 F. Pain level now 10/10. -- 12:47 10/16/24 EDT Silvina Maguire R.N. Measurements: 12:45 10/16/24 Wt: 140.2 kg, Ht/Wilson: 69.0 in, BMI: 45.63 -- 12:45 10/16/24 EDT Silvina Maguire R.N. 1 of 5 Nurse Narrative Medications: omeprazole 40 mg capsule,delayed release -- 12:51 10/16/24 EKTAT Silvina Maguire R.N. dofetilide 250 mcg capsule -- 12:51 10/16/24 EDT Silvina Maguire R.N. albuterol sulfate 2.5 mg/3 mL (0.083 %) solution for nebulization -- 12:10/16/24 [facility] Silvina Maguire R.N. pravastatin 40 mg tablet -- 12:10/16/24 [facility] Silvina Maguire R.N. metoprolol succinate ER 100 mg tablet,extended release 24 hr -- 12:10/16/24 [facility] Silvina Maguire R.N. spironolactone 25 mg tablet -- 12:10/16/24 [facility] Silvina Maguire R.N. trazodone 100 mg tablet -- 12:10/16/24 [facility] Silvina Maguire R.N. tizanidine 2 mg tablet -- 12:10/16/24 [facility] Silvina Maguire R.N. hydroxyzine pamoate 25 mg capsule -- 12:10/16/24 [facility] Silvina Maguire R.N. furosemide 20 mg tablet -- 12:10/16/24 [facility] Silvina Maguire R.N. duloxetine 20 mg capsule,delayed release -- 12:10/16/24 [facility] Silvina Maguire R.N. budesonide-formoterol HFA 80 mcg-4.5 mcg/actuation aerosol inhaler -- 12:10/16/24 [facility] Silvina Maguire R.N. True Metrix Glucose Test Strip -- 12:10/16/24 [facility] Silvina Maguire R.N. Xarelto 20 mg tablet -- 12:10/16/24 [facility] Silvina Maguire R.N. potassium chloride ER 20 mEq tablet,extended release -- 12:10/16/24 [facility] Silvina Maguire R.N. TRUEplus Lancets 28 gauge -- 12:10/16/24 [facility] Silvina Maguire R.N. Trulicity 1.5 mg/0.5 mL subcutaneous pen injector -- 12:51 10/16/24 [facility] Silvina Maguire R.N. Allergies: Rwbdheb-YCD-CoC Reductase Inhibitors -- 12:40 10/16/24 EDT Silvina Maguire R.N. Problems: Atrial Fibrillation -- 12:40 10/16/24 EKTAT Silvina Maguire R.N. Congestive Heart Failure -- 12:40 10/16/24 EDT Silvina Maguire R.N. Hypertension -- 12:41 10/16/24 EDT Silvina Maguire R.N. Glaucoma -- 12:41 10/16/24 EDT Silvina Maguire R.N. Surgeries: lump out of arm -- 12:41 10/16/24 EDT Silvina Maguire R.N. History 2 of 5 Nurse Narrative 12:34 10/16/24. SOCIAL HX: Never smoker. No alcohol use or drug use. The patient has not traveled outside the [place] Infectious disease exposure: No infectious disease exposure. ABUSE ASSESSMENT: The patient answered yes to the question(s) Do you feel safe in your home? and no to the question(s) Are you afraid to go home?. SELF HARM ASSESSMENT: Self harm assessment was performed. The patient answered no to the question(s) Have you recently felt down, depressed, or hopeless? and Do you have thoughts of harming or killing yourself?. FALL RISK ASSESSMENT: Fall risk assessment completed. Risk factors identified include patient history of fall. -- 12:47 10/16/24 EDT Silvina Maguire R.N. Interventions 12:34 10/16/24. Advanced care plan discussed with patient. Patient does not have advanced directive. -- 12:47 10/16/24 EDT Silvina Maguire R.N. PHYSICAL ASSESSMENT 12:47 10/16/24. BP: 171/95 MAP: 120. HR: 93. RR: 18. O2 saturation: 93% Temperature: 98.9 F. Pain level now 03/07. -- 14:12 10/16/24 EDT Destiney Chu R.N. 13:10 10/16/24. HR: 82 bpm. O2 saturation: 89%. -- 14:12 10/16/24 EDT Destiney Chu R.N. 13:11 10/16/24. BP: 132/85 MAP: 100 mmHg. HR: 86 bpm. -- 14:12 10/16/24 EDT Destiney Chu R.N. 14:08 10/16/24. To room via wheelchair. GENERAL / NEURO / PSYCH: Oriented X 4. Alert. Appears in pain. CVS: Pulses: right popliteal per doppler; right dorsalis pedis per doppler. EXTREMITIES: Right ankle: tenderness, swelling and ecchymosis. SKIN: Skin is warm and dry. -- 14:18 10/16/24 EDT Destiney Chu R.N. NURSING PROGRESS NOTES 12:54 10/16/24. E (more content not included)... Normal [facility] ED ORDER SHEET (CPOE ONLY)on 10-16-2024 ED ORDER SHEET (CPOE ONLY) Order Sheet Order Sheet [address] [place] [address] [id number] 10/16/2024 Patient: SOCORRO KELLEY Sex: Male : 1970 Age: 54y MEASUREMENTS: Wt: 140.2 kg, Ht/Wilson: 69.0 in, BMI: 45.63 ALLERGIES: Uvykexc-KXC-GuI Reductase Inhibitors MEDICATION/IV/DRIP/FLU ID ORDERS Order Description Priority Entered Acknowledged Completed HYDROmorphone (Dilaudid) 12:56 10/16/2024 12:58 13:14 IVP0.5 mg (NOW x1, HIGH Jake Maxwell M.D. 10/16/2024 10/16/2024 ALERT MEDICATION) Destiney Blackman R.N. R.N. LAB ORDERS Order Description Priority Entered Acknowledged Collected Completed PT with INR Stat Stat 12:51 10/16/2024 12:58 10/16/2024 14:19 10/16/2024 Reymundo Carvajal Debra Schrock, R.N. R.N. CBC w Diff Stat Stat 14:00 10/16/2024 14:18 10/16/2024 14:19 10/16/2024 Reymundo Carvajal Debra Schrock, R.N. R.N. CMP Stat Stat 14:00 10/16/2024 14:18 10/16/2024 14:19 10/16/2024 Reymundo Carvajal Debra Schrock, R.N. REverettNEverett 1 of 3 Order Sheet Lactate, Serum Stat Stat 14:00 10/16/2024 14:18 10/16/2024 14:19 10/16/2024 Reymundo Carvajal Debra Schrock, R.N. RRohan BNP Stat Stat 14:00 10/16/2024 14:10 10/16/2024 14:19 10/16/2024 Reymundo Carvajal Debra Schrock, R.N. RRohan DIAGNOSTIC STUDY ORDERS Order Description Priority Entered Acknowledged Completed Foot R Complete Stat Stat 12:51 10/16/2024 12:58 14:19 Jake Maxwell M.D. 10/16/2024 10/16/2024 Destiney Blackman R.N. R.NEverett Reason for Study: Trauma/Injury Tib/Fib R 2V Stat Stat 12:51 10/16/2024 12:58 14:19 Jake Maxwell M.D. 10/16/2024 10/16/2024 Destiney Blackman R.N. R.NEverett Reason for Study: Trauma/Injury Ankle R Complete Stat Stat 12:51 10/16/2024 12:58 14:19 Jake Maxwell M.D. 10/16/2024 10/16/2024 Destiney Blackman R.N. R.NEverett Reason for Study: Trauma/Injury STAFF ORDERS Order Description Priority Entered Acknowledged Collected Completed IV Saline Lock 12:56 10/16/2024 12:58 10/16/2024 14:19 10/16/2024 Reymundo Carvajal Debra Schrock, R.N. R.NEverett [Electronically signed by Jake Maxwell M.D. (10/16/2024 15:16 EDT)] 2 of 3 Order Sheet [Electronically signed by Jake Maxwell M.D. (10/16/2024 15:18 EDT)] 3 of 3 [facility] ED PHYSICIAN CLINICAL REPORT on 10-16-2024 ED PHYSICIAN CLINICAL REPORT Narrative Physician Clinical Narrative [place] [id number] [facility] [place] [address] [phone] 10/16/2024 12:34:00 Patient: SOCORRO KELLEY Sex: Male : 1970 Age: 54y Disposition: Transfer to [facility] Disposition Decision Time: 14:27 10/16/2024 Measurements Wt: 140.2 kg, Ht/Wilson: 69.0 in, BMI: 45.63 Initial Vital Sign Measured Time BP MAP HR RR O2Sat ETCO2 Temp Pain GCS RTS 12:47 10/16/2024 171/95 120 93 18 93% 98.9 F 10 Time Seen: 12:35 10/16/2024. Arrived- By private vehicle. Historian- patient. HISTORY OF PRESENT ILLNESS Chief Complaint: Injury to right foot and right ankle. The injury happened just prior to arrival. The patient sustained a twisting injury. Occurred at home. Patient is experiencing moderate pain. No injury to the head or neck or other injury. REVIEW OF SYSTEMS SKIN: No suspected foreign body or skin laceration. NEUROLOGICAL: No numbness. Previous left foot injury. Is wearing a boot to the left foot and ankle. MUSCULOSKELETAL: The patient complains of pain on weight bearing. The patient has had swelling. 1 of 16 Narrative PAST HISTORY See nurses notes. Atrial Fibrillation Congestive Heart Failure Glaucoma Hypertension Surgeries: lump out of arm Medications: albuterol sulfate 2.5 mg/3 mL (0.083 %) solution for nebulization budesonide-formoterol HFA 80 mcg-4.5 mcg/actuation aerosol inhaler dofetilide 250 mcg capsule duloxetine 20 mg capsule,delayed release furosemide 20 mg tablet hydroxyzine pamoate 25 mg capsule metoprolol succinate ER 100 mg tablet,extended release 24 hr omeprazole 40 mg capsule,delayed release potassium chloride ER 20 mEq tablet,extended release pravastatin 40 mg tablet spironolactone 25 mg tablet tizanidine 2 mg tablet trazodone 100 mg tablet True Metrix Glucose Test Strip TRUEplus Lancets 28 gauge Trulicity 1.5 mg/0.5 mL subcutaneous pen injector Xarelto 20 mg tablet Allergies: Kqupmba-TEY-DsR Reductase Inhibitors SOCIAL HISTORY Does not use tobacco. No alcohol use. 2 of 16 Narrative ADDITIONAL NOTES The nursing notes have been reviewed. PHYSICAL EXAM Vital Signs: Have been reviewed. Appearance: Alert. Oriented X3. Appears to be in pain. Patient in moderate distress. (patient has a ortho boot to his right lower extremity from a previous fracture. Patient states that he got up to walk and the ortho boot slipped causing him to fall. He twisted his right ankle her and it snapped and went sideways. He was able to straighten it up somewhat but has been unable to weight bear. He states that this happened just about an hour prior to arrival.). Head: Head atraumatic. Eyes: Pupils equal, round and reactive to light. ENT: Nose normal. Pharynx normal. (Poor dentition). Neck: Normal inspection. Neck supple. C-spine non-tender. CVS: Normal heart rate and rhythm. Heart sounds normal. Pulses normal. Respiratory: No respiratory distress. Breath sounds normal. Abdomen: Soft and nontender. Bowel sounds normal. Obese. Back: Normal inspection. No tenderness. Skin: Skin intact. Skin warm and dry. Normal skin color. Normal skin turgor. Extremities: Severe soft-tissue tenderness present in the right lateral, medial, anterior and posterior ankle. No signs of infection involving the lower extremities. (Patient has marked diffuse left ankle swelling with some scattered intact hemorrhagic vesicles and bulla as well as below that are clear fluid filled. Significant ecchymosis is present particularly along the medial malleolus area. The foot is diffusely swollen slightly pinkish purplish with a near purple appearing toe. Skin is intact. He does not seem to have swelling or tenderness to the lower leg area. Toes are a bit cool I initially was not able to palpate dorsalis pedal or posterior tibial pulses that he did Have good pulses by Doppler.). Neuro, Vascular and Tendons: Vascular status intact. Sensation intact. Gait: Gait not tested due to pain. Neuro: Oriented X 3. No motor deficit. No sensory deficit. LABS, X-RAYS, AND EKG Laboratory Tests: CBC + DIFF 3 of 16 Narrative Final RONY: 10/16/2024 13:05:00 EDT MsgRcvd: 10/16/2024 14:10 EDT Lab Test Result Reference Status Received Comments 10/16/2024 14:10 CBC-COMPLETE CBC + DIFF Final EDT BLOOD COUNT 10/16/2024 14:10 WBC 5.6 x 10/UL 4.5 - 10.8 Final EDT 10/16/2024 14:10 RBC 5.02 x 10/UL 4.50 - 6.00 Final EDT 10/16/2024 14:10 HEMOGLOBIN 15.4 g/dl 13.0 - 17.5 Final EDT 10/16/2024 14:10 HEMATOCRIT 44.1 % 40.0 - 52.0 Final EDT 10/16/2024 14:10 MCV 88 fl 81 - 98 Final EDT 10/16/2024 14:10 MCH 31 pg 27 - 33 Final EDT 10/16/2024 14:10 MCHC 35 X10 3 32 - 36 Final EDT 10/16/2024 14:10 RDW/CV 15.2 % 12.0 - 15.6 Final EDT 148 x10/UL (more content not included)... Normal [facility] ED SUPER BILLon 10-16-2024 ED SUPER BILL [address] [place] [address] [phone] 10/16/2024 Patient: SOCORRO KELLEY Sex: Male : 1970 Age: 54y Facility Professional Category Item Description Code Code Quantity Fee Total Nurse/E/M EMERGENCY 047241 1 $0.00 $0.00 DEPT VISIT HIGH SEVERITYFUNCJ (54154-31) Nurse/IV/IM/Infusions IVP initial (865884) 997192 1 $0.00 $0.00 Grand $0.00 Total Providers Jake Maxwell M.D. Jake Maxwell M.D. Chief Complaint Injury to right foot and right ankle. Principal Diagnosis Closed displaced, severely angulated right bimalleolar fracture. 1 of 2 [facility] ICD-10 Codes S82.841A: Displaced bimalleolar fracture of right lower leg, initial encounter for closed fracture 2 of 2 Normal [facility] ED VISIT SUMMARYon ED VISIT SUMMARY Visit Overview Visit Overview [address] [place] [address] [phone] 10/16/2024 [id number] Sex: Male : 1970 Age: 54y 10/16/2024 07:42 PM EDT ED Arrival:12:34 10/16/2024 EDT Status: Recent Travel:no Language:eng Adv Directive:No Isolation Status: Ethnicity:N Fall Risk:risk Infectious Disease Exposure:no Measurements:5'9 / 175.3 Self-Harm Status:risk Sepsis Screen:negative cm 309.0 lb / 140.2 kg Chief Complaint:RIGHT LOWER EXTREMITY PAIN, RIGHT LOWER EXTREMITY REDNESS, and RIGHT LOWER EXTREMITY SWELLING ALLERGIES Ejgqozb-HDQ-TsQ Reductase Inhibitors HOME MEDICATIONS albuterol sulfate 2.5 mg/3 mL (0.083 %) solution for nebulization budesonide-formoterol HFA 80 mcg-4.5 mcg/actuation aerosol inhaler dofetilide 250 mcg capsule duloxetine 20 mg capsule,delayed release 1 of 4 Visit Overview furosemide 20 mg tablet hydroxyzine pamoate 25 mg capsule metoprolol succinate ER 100 mg tablet,extended release 24 hr omeprazole 40 mg capsule,delayed release potassium chloride ER 20 mEq tablet,extended release pravastatin 40 mg tablet spironolactone 25 mg tablet tizanidine 2 mg tablet trazodone 100 mg tablet True Metrix Glucose Test Strip TRUEplus Lancets 28 gauge Trulicity 1.5 mg/0.5 mL subcutaneous pen injector Xarelto 20 mg tablet PAST MEDICAL HISTORY / PROBLEMS Atrial Fibrillation Congestive Heart Failure Glaucoma Hypertension See nurses notes PAST SURGICAL HISTORY lump out of arm SOCIAL HISTORY Smoking status: No Alcohol use: No Drug use: No ED COURSE MEDICATIONS GIVEN IN EMERGENCY DEPARTMENT 13:11 10/16/24 HYDROmorphone (Dilaudid) IVP 0.5 mg IV SITE INFORMATION 13:01 10/16/24 Site #1 right AC, 20g. Saline lock. 2 of 4 Visit Overview INTAKE OUTPUT REASSESMENT (most recent) 14:08 10/16/24. To room via wheelchair. GENERAL / NEURO / PSYCH: Oriented X 4. Alert. Appears in pain. CVS: Pulses: right popliteal per doppler; right dorsalis pedis per doppler. EXTREMITIES: Right ankle: tenderness, swelling and ecchymosis. SKIN: Skin is warm and dry. VITAL SIGNS First Vitals Last Vitals Temp 12:47 10/16/24 98.9 F Temp 14:41 10/16/24 BP 12:47 10/16/24 171/95 BP 14:41 10/16/24 137/83 HR 12:47 10/16/24 93 HR 14:41 10/16/24 80 RR 12:47 10/16/24 18 RR 14:41 10/16/24 O2 Sat 12:47 10/16/24 93% O2 Sat 14:41 10/16/24 Pain 12:47 10/16/24 10 Pain 14:41 10/16/24 ETCO2 12:47 10/16/24 ETCO2 14:41 10/16/24 GCS 12:47 10/16/24 GCS 14:41 10/16/24 RTS 12:47 10/16/24 RTS 14:41 10/16/24 PROCEDURES NURSING INTERVENTIONS LABS / STUDIES LABS / STUDIES ORDERED Ankle R Complete BNP CBC w Diff CMP Foot R Complete Lactate, Serum PT with INR Tib/Fib R 2V 3 of 4 Visit Overview CLINICAL IMPRESSION CLOSED DISPLACED, SEVERELY ANGULATED RIGHT BIMALLEOLAR FRACTURE 4 of 4 Normal [facility] ED VITALS FLOW SHEETon 10-16 ED VITALS FLOW SHEET Vitals Vital Sign Flow Sheet [address] [address] [phone] 10/16/2024 Patient: SOCORRO KELLEY Sex: Male : 1970 Age: 54y Measurements Wt: 140.2 kg, Ht/Wilson: 69.0 in, BMI: 45.63 Measured Time BP MAP HR RR O2Sat ETCO2 Temp Pain GCS RTS 14:41 10/16/2024 137/83 108 80 14:34 10/16/2024 74 93% 14:29 10/16/2024 75 90% 14:27 10/16/2024 135/87 103 75 14:24 10/16/2024 75 94% 14:19 10/16/2024 74 90% 14:14 10/16/2024 75 93% 14:11 10/16/2024 132/115 119 75 14:09 10/16/2024 76 86% 14:04 10/16/2024 76 88% 13:59 10/16/2024 77 89% 13:56 10/16/2024 125/81 89 77 13:54 10/16/2024 78 89% 13:49 10/16/2024 79 87% 13:44 10/16/2024 77 96% 1 of 2 Vitals Measured Time BP MAP HR RR O2Sat ETCO2 Temp Pain GCS RTS 13:41 10/16/2024 115/94 99 76 13:39 10/16/2024 79 88% 13:34 10/16/2024 76 88% 13:29 10/16/2024 78 92% 13:26 10/16/2024 130/82 90 79 13:24 10/16/2024 76 93% 13:19 10/16/2024 82 79% 13:11 10/16/2024 132/85 100 86 13:10 10/16/2024 82 89% 12:47 10/16/2024 171/95 120 93 18 93% 98.9 F 10 2 of 2 Normal [facility] FOOT COMPLETE RTon FOOT COMPLETE RT [place] [address] Patient: SOCORRO KELLEY Phone#: : 1970 Age: 54 Gender: M Pt. Type: ER Account: [id number] Location: [facility] Ordering: JAKE MAXWELL Exam Date: 10/16/2024/13:00 Family Phys: Charge Code: 326854 Physician: [place] Order #: [id number] Dose#: PROCEDURE: X-RAY FOOT RT COMPLETE MIN 3 VIEWS COMPARISON: None. INDICATIONS: Trauma. FINDINGS: BONES: Distal fibula fracture. Lateral subluxation of the talus. Please refer to ankle radiograph report performed same day. No acute osseous abnormality in the midfoot, metatarsals or phalanges. There is bipartite lateral 1st sesamoid. SOFT TISSUES: Soft tissue swelling at the level of the ankle and dorsal aspect of the distal foot. EFFUSION: None visible. OTHER: Negative. CONCLUSION: 1. Ankle fracture and subluxation, please refer to ankle radiograph report performed same day. 2. No acute osseous abnormality of the midfoot, metatarsals or phalanges. Dictated by: Corrine Bagley MD on 10/16/2024 at 14:15 Approved by: Corrine Bagley MD on 10/16/2024 at 14:23 Normal [facility] LABORATORYOrdered By: SYSTEM SYSTEM on 10-16-2024 Monocyte distribution width Auto (Bld) [Entitic vol] 19.45 1 Normal 0.00 - 20.00 Workflow SS Comment on above: Result Comment: For ED adult patients suspected of sepsis, MDW<=20.0 does not rule out sepsis or risk of sepsis Albumin BCP dye [Mass/Vol] 3.6 G/dL Normal 3.2 - 4.8 G/dL ADM SS Albumin/Globulin [Mass ratio] 1.0 {ratio} Normal 0.9 - 1.6 ratio AH ADM SS ALP [Catalytic activity/Vol] 70 U/L Normal 38 - 126 U/L ADM SS ALT No additional P-5'-P [Catalytic activity/Vol] 12 U/L Normal 12 - 55 U/L AH ADM SS AST [Catalytic activity/Vol] 17 U/L Normal 8 - 34 U/L AH ADM SS Bilirubin [Mass/Vol] 0.60 mg/dL Normal 0.20 - 1.20 mg/dL AH ADM SS Comment on above: Interpretive Data: U se of this assay is not recommended for patients undergoing treatment with eltrombopag due to the potential for falsely elevated results. Globulin 3.5 G/dL Normal 2.5 - 4.2 G/dL AH ADM SS Protein [Mass/Vol] 7.1 G/dL Normal 5.7 - 8.2 G/dL AH ADM SS Ethanol [Mass/Vol] mg/dL Invalid Interpretation Code ADM SS Monocyte distribution width Auto (Bld) [Entitic vol] 17.52 1 Normal 0.00 - 20.00 Workflow SS Comment on above: Result Comment: For ED adult patients suspected of sepsis, MDW<=20.0 does not rule out sepsis or risk of sepsis LABORATORYOrdered By: Tara Amaya on 10-16-2024 ABO and Rh group Nom (Bld) Blood group O Rh(D) positive Invalid Interpretation Code AH BB Auto SS Blood group antibody screen Ql Negative ABSC (10/16/24 10:08 PM) Normal BB Auto SS LACTATEon 10-16-2024 Lactate [Moles/Vol] 1.1 mmol/L Normal 0.4 - 2.0 [facility] Comment on above: Performed By: #### [id number] #### [facility],[address] [place], [place] [id number] NT-proBNPon 10-16-2024 Natriuretic peptide B (Bld) [Mass/Vol] 291 pg/mL High 0 - 125 [facility] Comment on above: Performed By: #### 2 [id number] #### [facility],[address] [place] [address] PROTHROMBIN TIME AND INRon 0 10-16-2024 INR Coag (PPP) [Relative time] 1.4 {INR} High 0.8 - 1.2 [facility] Comment on above: Result Comment: T HE HEMOSIL THROMBOPLASTIN REAGENT USED IN THE PROTHROMBIN TIME TEST INTERACTS WITH THE DRUG CUBICIN (DAPTOMYCIN) AND WILL RESULT IN FALSELY ELEVATED PT / INR RESULTS INR INTERPRETATION INR INDICATION PREVENTION AND TREATMENT OF THROMBOEMBOLISM ASSOCIATED WITH: 2.0 - 3.0 ATRIAL FIBRILLATION, BIOPROSTHETIC HEART VALVES, PULMONARY EMBOLISM, VENOUS THROMBOSIS, SYSTEMIC EMBOLISM POST MYOCARDIAL INFARCTION 2.5 - 3.5 MECHANICAL HEART VALVES Performed By: #### 2 [id number] ####[facility],[address] [place] [address] PROTHROMBIN TIME AND INR Normal [facility] Comment on above: Result Comment: PROT HROMBIN TIME AND INR Performed By: #### 2 [id number] ####[facility],[address] [place] [address] PT-COUMADIN 15.9 sec High 9.3 - 14.1 [facility] Comment on above: Performed By: #### 2 [id number] ####[facility],[address] [place] [address] TIBIA-FIBULA RTon 10-16-2024 TIBIA-FIBULA RT [place] [address] Patient: SOCORRO KELLEY Phone#: : [phone] Age: 54 Gender: M Pt. Type: ER Account: [id number] Location: [facility] Ordering: JAKE MAXWELL Exam Date: 10/16/2024/13:23 Family Phys: Charge Code: 838526 Physician: [place] Order #: [id number] Dose#: PROCEDURE: X-RAY TIB FIB RT 2 VIEWS COMPARISON: None. INDICATIONS: Trauma. FINDINGS: BONES: Spiral fracture of the distal fibula. The fracture is proximal to the tibiotalar articulation. The distal fracture fragment is dorsally displaced 0.4 cm. The fracture line measures 0.7 cm in with. Tibia is intact. SOFT TISSUES: Soft tissue stranding the distal lower extremity. EFFUSION: None visible. OTHER: Negative. CONCLUSION: 1. Spiral fracture of the distal fibula. Dictated by: Corrine Bagley MD on 10/16/2024 at 14:10 Approved by: Corrine Bagley MD on 10/16/2024 at 14:12 Normal [facility] XR ANKLE MINIMUM 3 VIEWS LEF Ton 10-16-2024 XR ANKLE MINIMUM 3 VIEWS LEFT ORIGINAL EXAMINATION: THREE XRAY VIEWS OF THE LEFT ANKLE10/16/2024 10:07 pm COMPARISON: X-ray left ankle 08/29/2024 HISTORY: ORDERING SYSTEM PROVIDED HISTORY: Reason for Exam: ankle fracture 7 weeks ago, FINDINGS: No significant change in alignment left distal fibular fracture extending to tibiofibular syndesmosis. No significant reparative change seen. Tibiotalar joint is maintained. Fragmented ossicles at tip of medial and lateral malleolus suggesting remote injury. Soft tissue swelling. IMPRESSION: No significant change in alignment and no significant reparative changes seen at left distal fibular fracture. I have personally reviewed the images of this examination and agree with the resident's findings and interpretation. Interpreted by: Trace Fierro Preliminary Report By: Jordon Levin Electronically signed By Trace Fierro Dictated Date: 10/16/2024 10:21:21 PM Prelim Date: 10/16/2024 10:25:23 PM Sign Date: 10/16/2024 10:39:42 PM Ordering Provider: [facility] MAIN XR ANKLE MINIMUM 3 VIEWS RIG HTon 10-16-2024 XR ANKLE MINIMUM 3 VIEWS RIGHT ORIGINAL EXAMINATION: THREE XRAY VIEWS OF THE RIGHT ANKLE10/16/2024 8:42 pm COMPARISON: 10/17/2023, 7:10 p.m. HISTORY: ORDERING SYSTEM PROVIDED HISTORY: Reason for Exam: post reduction, FINDINGS: Casting artifact limits detail. No significant change in alignment post reduction IMPRESSION: No significant change in alignment post reduction. I have personally reviewed the images of this examination and agree with the resident's findings and interpretation. Interpreted by: Trace Fierro Preliminary Report By: Jordon Levin Electronically signed By Trace Fierro Dictated Date: 10/16/2024 8:55:43 PM Prelim Date: 10/16/2024 8:57:44 PM Sign Date: 10/16/2024 9:20:54 PM Ordering Provider: [facility] MAIN XR ANKLE MINIMUM 3 VIEWS RIGHT ORIGINAL EXAMINATION: THREE XRAY VIEWS OF THE RIGHT ANKLE10/16/2024 7:09 pm COMPARISON: 10/16/2024 5:44 p.m. HISTORY: ORDERING SYSTEM PROVIDED HISTORY: Reason for Exam: pain, fracture, post reduction FINDINGS: There is no significant change in alignment post reduction. IMPRESSION: No significant change in alignment post reduction. I have personally reviewed the images of this examination and agree with the resident's findings and interpretation. Interpreted by: Trace Fierro Preliminary Report By: Keagan Huggins MD Electronically signed By Trace Fierro Dictated Date: 10/16/2024 7:23:46 PM Prelim Date: 10/16/2024 7:53:07 PM Sign Date: 10/16/2024 7:53:07 PM Ordering Provider: EM GARCIA [facility] MAIN XR ANKLE MINIMUM 3 VIEWS RIGHT ORIGINAL EXAMINATION: THREE XRAY VIEWS OF THE RIGHT ANKLE10/16/2024 5:44 pm COMPARISON: None HISTORY: ORDERING SYSTEM PROVIDED HISTORY: Reason for Exam: pain, fall FINDINGS: Comminuted obliquely oriented fracture of distal fibular shaft at and above the level of syndesmosis with syndesmotic injury and widening. There is widening and subluxation of tibiotalar joint with medial displacement of tibia relative to talus and widening of medial tibiotalar space. Possible nondisplaced fracture at inferior aspect of cuboid bone. Fracture fragments seen at medial aspect of talus inferior to medial malleolus with unclear origin. Corticated ossific density seen at tip of lateral malleolus likely remote injury. Soft tissue swelling around ankle joint.. IMPRESSION: Fracture subluxation of the ankle. Possible nondisplaced fracture inferior aspect of cuboid bone. Fracture fragments at medial aspect of talus inferior to medial malleolus with unclear origin. I have personally reviewed the images of this examination and agree with the resident's findings and interpretation. Interpreted by: Trace Fierro Preliminary Report By: Jordon Levin Electronically signed By Trace Fierro Dictated Date: 10/16/2024 5:48:30 PM Prelim Date: 10/16/2024 5:53:49 PM Sign Date: 10/16/2024 6:28:12 PM Ordering Provider: EM GARCIA Normal [facility] .Auto Diffon 10-04-2024 Basophil, Absolute 0.0 10 3/mcL Normal 0.0-0.3 [facility] Comment on above: Performed By: #### M G, GFR, ANEU, ADIFF, CBC, CMP, A1C, LIPID #### [address] [address] Basophils/100 WBC (Bld) 0.9 % Normal 0.0-2.5 [facility] Comment on above: Performed By: #### M G, GFR, ANEU, ADIFF, CBC, CMP, A1C, LIPID #### [address] [address] Eosinophil, Absolute 0.1 10 3/mcL Normal 0.0-0.7 [facility] Comment on above: Performed By: #### M G, GFR, ANEU, ADIFF, CBC, CMP, A1C, LIPID #### [address] [address] Eosinophils/100 WBC (Bld) 1.9 % Normal 0.0-6.0 [facility] Comment on above: Performed By: #### M G, GFR, ANEU, ADIFF, CBC, CMP, A1C, LIPID #### [address] [address] Lymphocyte, Absolute 1.0 10 3/mcL Normal 0.9-4.3 [facility] Comment on above: Performed By: #### M G, GFR, ANEU, ADIFF, CBC, CMP, A1C, LIPID #### [address] [address] Lymphocytes/100 WBC (Bld) 24.9 % Normal 20.0-40.0 [facility] Comment on above: Performed By: #### M G, GFR, ANEU, ADIFF, CBC, CMP, A1C, LIPID #### [address] [address] Monocyte, Absolute 0.3 10 3/mcL Normal 0.1-1.4 [facility] Comment on above: Performed By: #### M G, GFR, ANEU, ADIFF, CBC, CMP, A1C, LIPID #### [address] [address] Monocytes/100 WBC (Bld) 7.5 % Normal 2.0-13.0 [facility] Comment on above: Performed By: #### M G, GFR, ANEU, ADIFF, CBC, CMP, A1C, LIPID #### [address] [address] Neutrophils/100 WBC (Bld) 64.8 % Normal 50.0-75.0 [facility] Comment on above: Performed By: #### M G, GFR, ANEU, ADIFF, CBC, CMP, A1C, LIPID #### [address] [address] .GFRon 10-04-2024 Estimated Glomerular Filtration Rate 107 ml/min/1.73sqm Normal [facility] Comment on above: Result Comment: Stages of Chronic Kidney Disease (CKD) Stage Description eGFR(ml/min/1.73 sq.m.) CKD 1 Normal kidney function or >=90 normal kindney function with possible kidney damage (ex. Proteinuria) CKD 2 Kidney damage with mild loss 60-89 of kidney function CKD 3a Mild to moderate loss of kidney 45-59 function CKD 3b Moderate to severe loss of 30-44 of kindey function CKD 4 Severe loss of kidney function 15-29 CKD 5 Kidney failure <15 Note: (go live 2024) the eGFR calculation was updated to the 2020 CKD-EPI creatinine equation without a race factor to calculate the eGFR results. Performed By: #### M G, GFR, ANEU, ADIFF, CBC, CMP, A1C, LIPID #### [address] [address] .NEUABSon 10-04-2024 Neutrophil, Absolute 2.5 10 3/mcL Normal 2.3-8.1 [facility] Comment on above: Performed By: #### M G, GFR, ANEU, ADIFF, CBC, CMP, A1C, LIPID #### [address] [address] BMPon 10-04-2024 BUN/Creatinine Ratio 6.5 ratio Low 10.0-22.0 [facility] Comment on above: Performed By: #### M G, GFR, ANEU, ADIFF, CBC, CMP, A1C, LIPID #### [place] [address] Calcium [Mass/Vol] 8.5 mg/dL Low 8.7-10.4 [facility] Comment on above: Performed By: #### M G, GFR, ANEU, ADIFF, CBC, CMP, A1C, LIPID #### [address] [address] Chloride [Moles/Vol] 102 mmol/L Normal 98-110 [facility] Comment on above: Performed By: #### M G, GFR, ANEU, ADIFF, CBC, CMP, A1C, LIPID #### [address] [address] CO2 [Moles/Vol] 31 mmol/L Normal 22-32 [facility] Comment on above: Performed By: #### M G, GFR, ANEU, ADIFF, CBC, CMP, A1C, LIPID #### [address] [address] Creatinine [Mass/Vol] 0.77 mg/dL Normal 0.60-1.40 [facility] Comment on above: Result Comment: Test ing performed on Tactilize analyzer using enzymatic creatinine methodology. Performed By: #### M G, GFR, ANEU, ADIFF, CBC, CMP, A1C, LIPID #### [address] [address] Electrolyte Balance 6.0 mEq/L Normal 4.0-15.0 [facility] Comment on above: Performed By: #### M G, GFR, ANEU, ADIFF, CBC, CMP, A1C, LIPID #### [address] [address] Glucose [Mass/Vol] 108 mg/dL Normal 70-110 [facility] Comment on above: Performed By: #### M G, GFR, ANEU, ADIFF, CBC, CMP, A1C, LIPID #### [address] [address] Potassium [Moles/Vol] 3.5 mmol/L Normal 3.5-5.0 [facility] Comment on above: Performed By: #### M G, GFR, ANEU, ADIFF, CBC, CMP, A1C, LIPID #### [address] [address] Sodium [Moles/Vol] 139 mmol/L Normal 136-145 [facility] Comment on above: Performed By: #### M G, GFR, ANEU, ADIFF, CBC, CMP, A1C, LIPID #### [place] [id number] Urea nitrogen [Mass/Vol] 5.0 mg/dL Low 8.0-22.0 [facility] Comment on above: Performed By: #### M G, GFR, ANEU, ADIFF, CBC, CMP, A1C, LIPID #### [address] [address] CBCon 10-04-2024 Erythrocyte distribution width (RBC) [Ratio] 17.1 % High 11.5-15.5 [facility] Comment on above: Performed By: #### M G, GFR, ANEU, ADIFF, CBC, CMP, A1C, LIPID #### [place] [id number] Hematocrit (Bld) [Volume fraction] 42.5 % Normal 40.0-52.0 [facility] Comment on above: Performed By: #### M G, GFR, ANEU, ADIFF, CBC, CMP, A1C, LIPID #### [place] [address] Hgb 13.8 G/dL Normal 13.0-17.5 [facility] Comment on above: Performed By: #### M G, GFR, ANEU, ADIFF, CBC, CMP, A1C, LIPID #### [place] [address] MCH (RBC) [Entitic mass] 28.4 pg Normal 27.0-33.0 [facility] Comment on above: Performed By: #### M G, GFR, ANEU, ADIFF, CBC, CMP, A1C, LIPID #### [place] [address] MCHC 32.6 G/dL Normal 32.0-36.0 [facility] Comment on above: Performed By: #### M G, GFR, ANEU, ADIFF, CBC, CMP, A1C, LIPID #### [place] [address] MCV (RBC) [Entitic vol] 87.2 fL Normal 81.0-100.0 [facility] Comment on above: Performed By: #### M G, GFR, ANEU, ADIFF, CBC, CMP, A1C, LIPID #### [place] [address] Platelet 120 10 3/mcL Low 150-450 [facility] Comment on above: Performed By: #### M G, GFR, ANEU, ADIFF, CBC, CMP, A1C, LIPID #### [place] [address] Platelet mean volume (Bld) [Entitic vol] 7.4 fL Normal 6.4-10.5 [facility] Comment on above: Performed By: #### M G, GFR, ANEU, ADIFF, CBC, CMP, A1C, LIPID #### [place] [address] RBC 4.87 10 6/mcL Normal 4.50-6.00 [facility] Comment on above: Performed By: #### M G, GFR, ANEU, ADIFF, CBC, CMP, A1C, LIPID #### [place] [id number] [place] [address] WBC 3.8 10 3/mcL Low 4.5-10.8 [facility] Comment on above: Performed By: #### M G, GFR, ANEU, ADIFF, CBC, CMP, A1C, LIPID #### [place] [id number] [place] [address] LABORATORYOrdered By: Adenike Swain on 10-04-2024 Blood Glucose Testing Reason Routine (10/04/24 7:18 AM) [facility] Glucose [Mass/Vol] 100 mg/dL Normal 70 - 110 mg/dL [facility] LABORATORYOrdered By: SYSTEM SYSTEM on 10-04-2024 Basophils (Bld) [#/Vol] 0.0 103/mcL Normal 0.0 - 0.3 10^3/mcL Workflow SS Basophils/100 WBC (Bld) 0.9 % Normal 0.0 - 2.5 % Workflow SS Calcium [Mass/Vol] 8.5 mg/dL Low 8.7 - 10. 4 mg/dL ADM SS Chloride [Moles/Vol] 102 mmol/L Normal 98 - 11 0 mEq/L AH ADM SS CO2 [Moles/Vol] 31 mmol/L Normal 22 - 32 mEq/L ADM SS Creatinine [Mass/Vol] 0.77 mg/dL Normal 0.60 - 1.40 mg/dL ADM SS Comment on above: Interpretive Data: T esting performed on Tactilize analyzer using enzymatic creatinine methodology. Electrolyte Balance 6.0 mEq/L Normal 4.0 - 15 .0 mEq/L AH ADM SS Eosinophils (Bld) [#/Vol] 0.1 103/mcL Normal 0.0 - 0.7 10^3/mcL AH Workflow SS Eosinophils/100 WBC (Bld) 1.9 % Normal 0.0 - 6.0 % AH Workflow SS Erythrocyte distribution width (RBC) [Ratio] 17.1 % High 11.5 - 15.5 % AH Workflow SS Estimated Glomerular Filtration Rate 107 ml/min/1.73sqm Invalid Interpretation Code ADM SS Comment on above: Interpretive Data: Stages of Chronic Kidney Disease (CKD) Stage Description eGFR(ml/min/1.73 sq.m.) CKD 1 Normal kidney function or >=90 normal kindney function with possible kidney damage (ex. Proteinuria) CKD 2 Kidney damage with mild loss 60-89 of kidney function CKD 3a Mild to moderate loss of kidney 45-59 function CKD 3b Moderate to severe loss of 30-44 of kindey function CKD 4 Severe loss of kidney function 15-29 CKD 5 Kidney failure <15 Note: (go live 2024) the eGFR calculation was updated to the 2020 CKD-EPI creatinine equation without a race factor to calculate the eGFR results. Glucose [Mass/Vol] 108 mg/dL Normal 70 - 110 mg/dL ADM SS Hematocrit (Bld) [Volume fraction] 42.5 % Normal 40.0 - 52.0 % Workflow SS Hemoglobin (Bld) [Mass/Vol] 13.8 G/dL Normal 13.0 - 17.5 G/dL AH Workflow SS Lymphocytes (Bld) [#/Vol] 1.0 103/mcL Normal 0.9 - 4.3 10^3/mcL Workflow SS Lymphocytes/100 WBC (Bld) 24.9 % Normal 20.0 - 40.0 % AH Workflow SS Magnesium [Mass/Vol] 1.9 mg/dL Normal 1.6 - 2 .4 mg/dL ADM SS MCH (RBC) [Entitic mass] 28.4 pg Normal 27.0 - 33.0 pg AH Workflow SS MCHC 32.6 G/dL Normal 32.0 - 36.0 G/dL Workflow SS MCV (RBC) [Entitic vol] 87.2 fL Normal 81.0 - 100.0 fL AH Workflow SS Monocytes (Bld) [#/Vol] 0.3 103/mcL Normal 0.1 - 1.4 10^3/mcL AH Workflow SS Monocytes/100 WBC (Bld) 7.5 % Normal 2.0 - 13.0 % AH Workflow SS Neutrophils (Bld) [#/Vol] 2.5 103/mcL Normal 2.3 - 8.1 10^3/mcL AH Workflow SS Neutrophils/100 WBC (Bld) 64.8 % Normal 50.0 - 75.0 % Workflow SS Platelet mean volume (Bld) [Entitic vol] 7.4 fL Normal 6.4 - 10.5 fL Workflow SS Platelets (Bld) [#/Vol] 120 103/mcL Low 150 - 450 10^3/mcL AH Workflow SS Potassium [Moles/Vol] 3.5 mmol/L Normal 3.5 - 5.0 mEq/L ADM SS RBC (Bld) [#/Vol] 4.87 106/mcL Normal 4.50 - 6.0 0 10^6/mcL Workflow SS Sodium [Moles/Vol] 139 mmol/L Normal 136 - 145 mEq/L ADM SS Urea nitrogen [Mass/Vol] 5.0 mg/dL Low 8.0 - 22.0 mg/dL ADM SS Urea nitrogen/Creatinine [Mass ratio] 6.5 ratio Low 10.0 - 22.0 ratio ADM SS WBC (Bld) [#/Vol] 3.8 103/mcL Low 4.5 - 10.8 10^3/mcL Workflow SS MGon 10-04-2024 Magnesium [Mass/Vol] 1.9 mg/dL Normal 1.6-2.4 [facility] Comment on above: Performed By: #### M G, GFR, ANEU, ADIFF, CBC, CMP, A1C, LIPID #### [address] [id number] .Auto Diffon 10-03-2024 Basophil, Absolute 0.0 10 3/mcL Normal 0.0-0.3 [facility] Comment on above: Performed By: #### M G, GFR, ANEU, ADIFF, CBC, CMP, A1C, LIPID #### [address] [address] Basophils/100 WBC (Bld) 0.9 % Normal 0.0-2.5 [facility] Comment on above: Performed By: #### M G, GFR, ANEU, ADIFF, CBC, CMP, A1C, LIPID #### [address] [address] Eosinophil, Absolute 0.1 10 3/mcL Normal 0.0-0.7 [facility] Comment on above: Performed By: #### M G, GFR, ANEU, ADIFF, CBC, CMP, A1C, LIPID #### [address] [address] Eosinophils/100 WBC (Bld) 2.0 % Normal 0.0-6.0 [facility] Comment on above: Performed By: #### M G, GFR, ANEU, ADIFF, CBC, CMP, A1C, LIPID #### [address] [address] Lymphocyte, Absolute 0.9 10 3/mcL Normal 0.9-4.3 [facility] Comment on above: Performed By: #### M G, GFR, ANEU, ADIFF, CBC, CMP, A1C, LIPID #### [address] [address] Lymphocytes/100 WBC (Bld) 21.1 % Normal 20.0-40.0 [facility] Comment on above: Performed By: #### M G, GFR, ANEU, ADIFF, CBC, CMP, A1C, LIPID #### [address] [address] Monocyte, Absolute 0.3 10 3/mcL Normal 0.1-1.4 [facility] Comment on above: Performed By: #### M G, GFR, ANEU, ADIFF, CBC, CMP, A1C, LIPID #### [address] [address] Monocytes/100 WBC (Bld) 7.6 % Normal 2.0-13.0 [facility] Comment on above: Performed By: #### M G, GFR, ANEU, ADIFF, CBC, CMP, A1C, LIPID #### [address] [address] Neutrophils/100 WBC (Bld) 68.4 % Normal 50.0-75.0 [facility] Comment on above: Performed By: #### M G, GFR, ANEU, ADIFF, CBC, CMP, A1C, LIPID #### [address] [address] .GFRon 10-03-2024 Estimated Glomerular Filtration Rate 109 ml/min/1.73sqm Normal [facility] Comment on above: Result Comment: Stages of Chronic Kidney Disease (CKD) Stage Description eGFR(ml/min/1.73 sq.m.) CKD 1 Normal kidney function or >=90 normal kindney function with possible kidney damage (ex. Proteinuria) CKD 2 Kidney damage with mild loss 60-89 of kidney function CKD 3a Mild to moderate loss of kidney 45-59 function CKD 3b Moderate to severe loss of 30-44 of kindey function CKD 4 Severe loss of kidney function 15-29 CKD 5 Kidney failure <15 Note: (go live 2024) the eGFR calculation was updated to the 2020 CKD-EPI creatinine equation without a race factor to calculate the eGFR results. Performed By: #### M G, GFR, ANEU, ADIFF, CBC, CMP, A1C, LIPID #### [place] [address] .NEUABSon 10-03-2024 Neutrophil, Absolute 2.8 10 3/mcL Normal 2.3-8.1 [facility] Comment on above: Performed By: #### M G, GFR, ANEU, ADIFF, CBC, CMP, A1C, LIPID #### [place] [address] A1Con 10-03-2024 Glucose [Mass/Vol] 114 mg/dL Normal [facility] Comment on above: Result Comment: Zahida mated Average Glucose calculated by equation ((28.7xA1C)-46.7) Estimated average glucose (eAG) is a calculated value from Hemoglobin A1C and is commercial representative of the average blood glucose level in the last 2-3 month period. Normal range: less than 114 mg/dL Performed By: #### M G, GFR, ANEU, ADIFF, CBC, CMP, A1C, LIPID #### [place] [address] HbA1c (Bld) [Mass fraction] 5.6 % Normal 4.0-6.0 [facility] Comment on above: Performed By: #### M G, GFR, ANEU, ADIFF, CBC, CMP, A1C, LIPID #### [place] [address] CBCon 10-03-2024 Erythrocyte distribution width (RBC) [Ratio] 16.6 % High 11.5-15.5 [facility] Comment on above: Performed By: #### M G, GFR, ANEU, ADIFF, CBC, CMP, A1C, LIPID #### [place] [id number] Hematocrit (Bld) [Volume fraction] 41.1 % Normal 40.0-52.0 [facility] Comment on above: Performed By: #### M G, GFR, ANEU, ADIFF, CBC, CMP, A1C, LIPID #### [place] [id number] Hgb 13.5 G/dL Normal 13.0-17.5 [facility] Comment on above: Performed By: #### M G, GFR, ANEU, ADIFF, CBC, CMP, A1C, LIPID #### [place] [id number] MCH (RBC) [Entitic mass] 28.7 pg Normal 27.0-33.0 [facility] Comment on above: Performed By: #### M G, GFR, ANEU, ADIFF, CBC, CMP, A1C, LIPID #### [place] [id number] MCHC 32.9 G/dL Normal 32.0-36.0 [facility] Comment on above: Performed By: #### M G, GFR, ANEU, ADIFF, CBC, CMP, A1C, LIPID #### [place] [id number] MCV (RBC) [Entitic vol] 87.2 fL Normal 81.0-100.0 [facility] Comment on above: Performed By: #### M G, GFR, ANEU, ADIFF, CBC, CMP, A1C, LIPID #### [place] [id number] Platelet 136 10 3/mcL Low 150-450 [facility] Comment on above: Performed By: #### M G, GFR, ANEU, ADIFF, CBC, CMP, A1C, LIPID #### [place] [id number] Platelet mean volume (Bld) [Entitic vol] 7.6 fL Normal 6.4-10.5 [facility] Comment on above: Performed By: #### M G, GFR, ANEU, ADIFF, CBC, CMP, A1C, LIPID #### [address] [address] RBC 4.72 10 6/mcL Normal 4.50-6.00 [facility] Comment on above: Performed By: #### M G, GFR, ANEU, ADIFF, CBC, CMP, A1C, LIPID #### [place] [id number] WBC 4.2 10 3/mcL Low 4.5-10.8 [facility] Comment on above: Performed By: #### M G, GFR, ANEU, ADIFF, CBC, CMP, A1C, LIPID #### [place] [id number] CMPon 10-03-2024 Albumin Level 3.3 G/dL Normal 3.2-4.8 [facility] Comment on above: Performed By: #### M G, GFR, ANEU, ADIFF, CBC, CMP, A1C, LIPID #### [place] [address] Albumin/Globulin [Mass ratio] 1.0 {ratio} Normal 0.9-1.6 [facility] Comment on above: Performed By: #### M G, GFR, ANEU, ADIFF, CBC, CMP, A1C, LIPID #### [place] [address] ALP [Catalytic activity/Vol] 56 U/L Normal 38-126 [facility] Comment on above: Performed By: #### M G, GFR, ANEU, ADIFF, CBC, CMP, A1C, LIPID #### [place] [address] ALT [Catalytic activity/Vol] 10 U/L Low 12-55 [facility] Comment on above: Performed By: #### M G, GFR, ANEU, ADIFF, CBC, CMP, A1C, LIPID #### [place] [id number] AST [Catalytic activity/Vol] 16 U/L Normal 8-34 [facility] Comment on above: Performed By: #### M G, GFR, ANEU, ADIFF, CBC, CMP, A1C, LIPID #### [place] [id number] Bili Total 0.60 mg/dL Normal 0.20-1.20 [facility] Comment on above: Result Comment: Use of this assay is not recommended for patients undergoing treatment with eltrombopag due to the potential for falsely elevated results. Performed By: #### M G, GFR, ANEU, ADIFF, CBC, CMP, A1C, LIPID #### [place] [id number] BUN/Creatinine Ratio 9.6 ratio Low 10.0-22.0 [facility] Comment on above: Performed By: #### M G, GFR, ANEU, ADIFF, CBC, CMP, A1C, LIPID #### [place] [id number] Calcium [Mass/Vol] 8.4 mg/dL Low 8.7-10.4 [facility] Comment on above: Performed By: #### M G, GFR, ANEU, ADIFF, CBC, CMP, A1C, LIPID #### [place] [id number] Chloride [Moles/Vol] 105 mmol/L Normal 98-110 [facility] MAIN Comment on above: Performed By: #### M G, GFR, ANEU, ADIFF, CBC, CMP, A1C, LIPID #### [place] [id number] CO2 [Moles/Vol] 31 mmol/L Normal 22-32 [facility] MAIN Comment on above: Performed By: #### M G, GFR, ANEU, ADIFF, CBC, CMP, A1C, LIPID #### [place] [id number] Creatinine [Mass/Vol] 0.73 mg/dL Normal 0.60-1.40 [facility] MAIN Comment on above: Result Comment: Test ing performed on [employer] analyzer using enzymatic creatinine methodology. Performed By: #### M G, GFR, ANEU, ADIFF, CBC, CMP, A1C, LIPID #### [place] [id number] Electrolyte Balance 1.0 mEq/L Low 4.0-15.0 [facility] MAIN Comment on above: Performed By: #### M G, GFR, ANEU, ADIFF, CBC, CMP, A1C, LIPID #### [address] [id number] Globulin 3.2 G/dL Normal 2.5-4.2 [facility] MAIN Comment on above: Performed By: #### M G, GFR, ANEU, ADIFF, CBC, CMP, A1C, LIPID #### [address] [id number] Glucose [Mass/Vol] 109 mg/dL Normal 70-110 [facility] MAIN Comment on above: Performed By: #### M G, GFR, ANEU, ADIFF, CBC, CMP, A1C, LIPID #### [address] [address] Potassium [Moles/Vol] 3.5 mmol/L Normal 3.5-5.0 [facility] Comment on above: Performed By: #### M G, GFR, ANEU, ADIFF, CBC, CMP, A1C, LIPID #### [address] [address] Sodium [Moles/Vol] 137 mmol/L Normal 136-145 [facility] Comment on above: Performed By: #### M G, GFR, ANEU, ADIFF, CBC, CMP, A1C, LIPID #### [address] [address] Total Protein 6.5 G/dL Normal 5.7-8.2 [facility] Comment on above: Performed By: #### M G, GFR, ANEU, ADIFF, CBC, CMP, A1C, LIPID #### [address] [address] Urea nitrogen [Mass/Vol] 7.0 mg/dL Low 8.0-22.0 [facility] Comment on above: Performed By: #### M G, GFR, ANEU, ADIFF, CBC, CMP, A1C, LIPID #### [address] [address] LABORATORYOrdered By: Jorge Wahl on 10-03-2024 Blood Glucose Testing Reason Routine (10/03/24 4:57 PM) [facility] Glucose [Mass/Vol] 81 mg/dL Normal 70 - 110 mg/dL [facility] LABORATORYOrdered By: Sophie Simental on 10-03-2024 Blood Glucose Testing Reason Routine (10/03/24 11:18 AM) [facility] Glucose [Mass/Vol] 99 mg/dL Normal 70 - 110 mg/dL [facility] LABORATORYOrdered By: SYSTEM SYSTEM on 10-03-2024 Albumin BCP dye [Mass/Vol] 3.3 G/dL Normal 3.2 - 4.8 G/dL ADM SS Albumin/Globulin [Mass ratio] 1.0 {ratio} Normal 0.9 - 1.6 ratio AH ADM SS ALP [Catalytic activity/Vol] 56 U/L Normal 38 - 126 U/L ADM SS ALT No additional P-5'-P [Catalytic activity/Vol] 10 U/L Low 12 - 55 U/L ADM SS AST [Catalytic activity/Vol] 16 U/L Normal 8 - 34 U/L ADM SS Basophils (Bld) [#/Vol] 0.0 103/mcL Normal 0.0 - 0.3 10^3/mcL AH Workflow SS Basophils/100 WBC (Bld) 0.9 % Normal 0.0 - 2.5 % Workflow SS Bilirubin [Mass/Vol] 0.60 mg/dL Normal 0.20 - 1.20 mg/dL AH ADM SS Comment on above: Interpretive Data: U se of this assay is not recommended for patients undergoing treatment with eltrombopag due to the potential for falsely elevated results. Calcium [Mass/Vol] 8.4 mg/dL Low 8.7 - 10. 4 mg/dL AH ADM SS Chloride [Moles/Vol] 105 mmol/L Normal 98 - 11 0 mEq/L AH ADM SS CO2 [Moles/Vol] 31 mmol/L Normal 22 - 32 mEq/L AH ADM SS Creatinine [Mass/Vol] 0.73 mg/dL Normal 0.60 - 1.40 mg/dL ADM SS Comment on above: Interpretive Data: T esting performed on Tactilize analyzer using enzymatic creatinine methodology. Electrolyte Balance 1.0 mEq/L Low 4.0 - 15 .0 mEq/L ADM SS Eosinophils (Bld) [#/Vol] 0.1 103/mcL Normal 0.0 - 0.7 10^3/mcL AH Workflow SS Eosinophils/100 WBC (Bld) 2.0 % Normal 0.0 - 6.0 % Workflow SS Erythrocyte distribution width (RBC) [Ratio] 16.6 % High 11.5 - 15.5 % Workflow SS Estimated Glomerular Filtration Rate 109 ml/min/1.73sqm Invalid Interpretation Code ADM SS Comment on above: Interpretive Data: Stages of Chronic Kidney Disease (CKD) Stage Description eGFR(ml/min/1.73 sq.m.) CKD 1 Normal kidney function or >=90 normal kindney function with possible kidney damage (ex. Proteinuria) CKD 2 Kidney damage with mild loss 60-89 of kidney function CKD 3a Mild to moderate loss of kidney 45-59 function CKD 3b Moderate to severe loss of 30-44 of kindey function CKD 4 Severe loss of kidney function 15-29 CKD 5 Kidney failure <15 Note: (go live 2024) the eGFR calculation was updated to the 2020 CKD-EPI creatinine equation without a race factor to calculate the eGFR results. Globulin 3.2 G/dL Normal 2.5 - 4.2 G/dL ADM SS Glucose [Mass/Vol] 109 mg/dL Normal 70 - 110 mg/dL ADM SS Glucose [Mass/Vol] 114 mg/dL Invalid Interpretation Code Auto Chem SS Comment on above: Interpretive Data: E stimated average glucose (eAG) is a calculated value from Hemoglobin A1C and is commercial representative of the average blood glucose level in the last 2-3 month period. Normal range: less than 114 mg/dL HbA1c (Bld) [Mass fraction] 5.6 % Normal 4.0 - 6.0 % Auto Chem SS Hematocrit (Bld) [Volume fraction] 41.1 % Normal 40.0 - 52.0 % Workflow SS Hemoglobin (Bld) [Mass/Vol] 13.5 G/dL Normal 13.0 - 17.5 G/dL Workflow SS Lymphocytes (Bld) [#/Vol] 0.9 103/mcL Normal 0.9 - 4.3 10^3/mcL Workflow SS Lymphocytes/100 WBC (Bld) 21.1 % Normal 20.0 - 40.0 % AH Workflow SS Magnesium [Mass/Vol] 2.1 mg/dL Normal 1.6 - 2 .4 mg/dL AH ADM SS MCH (RBC) [Entitic mass] 28.7 pg Normal 27.0 - 33.0 pg AH Workflow SS MCHC 32.9 G/dL Normal 32.0 - 36.0 G/dL AH Workflow SS MCV (RBC) [Entitic vol] 87.2 fL Normal 81.0 - 100.0 fL AH Workflow SS Monocytes (Bld) [#/Vol] 0.3 103/mcL Normal 0.1 - 1.4 10^3/mcL AH Workflow SS Monocytes/100 WBC (Bld) 7.6 % Normal 2.0 - 13.0 % AH Workflow SS Neutrophils (Bld) [#/Vol] 2.8 103/mcL Normal 2.3 - 8.1 10^3/mcL AH Workflow SS Neutrophils/100 WBC (Bld) 68.4 % Normal 50.0 - 75.0 % AH Workflow SS Platelet mean volume (Bld) [Entitic vol] 7.6 fL Normal 6.4 - 10.5 fL AH Workflow SS Platelets (Bld) [#/Vol] 136 103/mcL Low 150 - 450 10^3/mcL AH Workflow SS Potassium [Moles/Vol] 3.5 mmol/L Normal 3.5 - 5.0 mEq/L AH ADM SS Protein [Mass/Vol] 6.5 G/dL Normal 5.7 - 8.2 G/dL AH ADM SS RBC (Bld) [#/Vol] 4.72 106/mcL Normal 4.50 - 6.0 0 10^6/mcL AH Workflow SS Sodium [Moles/Vol] 137 mmol/L Normal 136 - 145 mEq/L AH ADM SS Urea nitrogen [Mass/Vol] 7.0 mg/dL Low 8.0 - 22.0 mg/dL AH ADM SS Urea nitrogen/Creatinine [Mass ratio] 9.6 ratio Low 10.0 - 22.0 ratio AH ADM SS WBC (Bld) [#/Vol] 4.2 103/mcL Low 4.5 - 10.8 10^3/mcL AH Workflow SS LABORATORYOrdered By: Zully Petersen on 10-03-2024 Cholesterol [Mass/Vol] 105 mg/dL Normal 50 - 199 mg/dL AH ADM SS Comment on above: Interpretive Data: C holesterol Reference Interval: Less than 200 Desirable 200-239 Borderline high risk 240 and above High risk Cholesterol in HDL [Mass/Vol] 17 mg/dL Low 40 - 59 mg/dL ADM SS Cholesterol in LDL [Mass/Vol] 58 mg/dL Normal 0 - 129 mg/dL ADM SS Triglyceride [Mass/Vol] 151 mg/dL High 3 - 149 mg/dL ADM SS LIPIDon 10-03-2024 Cholesterol [Mass/Vol] 105 mg/dL Normal 50-199 [facility] Comment on above: Result Comment: Chol esterol Reference Interval: Less than 200 Desirable 200-239 Borderline high risk 240 and above High risk Performed By: #### M G, GFR, ANEU, ADIFF, CBC, CMP, A1C, LIPID #### [address] [address] Cholesterol in HDL [Mass/Vol] 17 mg/dL Low 40-59 [facility] Comment on above: Performed By: #### M G, GFR, ANEU, ADIFF, CBC, CMP, A1C, LIPID #### [address] [address] Cholesterol in LDL [Mass/Vol] 58 mg/dL Normal 0-129 [facility] Comment on above: Performed By: #### M G, GFR, ANEU, ADIFF, CBC, CMP, A1C, LIPID #### [address] [address] Triglyceride [Mass/Vol] 151 mg/dL High 3-149 [facility] Comment on above: Performed By: #### M G, GFR, ANEU, ADIFF, CBC, CMP, A1C, LIPID #### [address] [address] MGon 10-03-2024 Magnesium [Mass/Vol] 2.1 mg/dL Normal 1.6-2.4 [facility] Comment on above: Performed By: #### M G, GFR, ANEU, ADIFF, CBC, CMP, A1C, LIPID #### [address] [address] .Auto Diffon 10-02-2024 Basophil, Absolute 0.0 10 3/mcL Normal 0.0-0.3 [facility] Comment on above: Performed By: #### M G, GFR, ANEU, ADIFF, CBC, CMP, A1C, LIPID #### [address] [address] Basophils/100 WBC (Bld) 0.6 % Normal 0.0-2.5 [facility] Comment on above: Performed By: #### M G, GFR, ANEU, ADIFF, CBC, CMP, A1C, LIPID #### [address] [address] Eosinophil, Absolute 0.1 10 3/mcL Normal 0.0-0.7 [facility] Comment on above: Performed By: #### M G, GFR, ANEU, ADIFF, CBC, CMP, A1C, LIPID #### [address] [address] Eosinophils/100 WBC (Bld) 1.0 % Normal 0.0-6.0 [facility] Comment on above: Performed By: #### M G, GFR, ANEU, ADIFF, CBC, CMP, A1C, LIPID #### [address] [address] Lymphocyte, Absolute 1.2 10 3/mcL Normal 0.9-4.3 [facility] Comment on above: Performed By: #### M G, GFR, ANEU, ADIFF, CBC, CMP, A1C, LIPID #### [address] [address] Lymphocytes/100 WBC (Bld) 18.1 % Low 20.0-40.0 [facility] Comment on above: Performed By: #### M G, GFR, ANEU, ADIFF, CBC, CMP, A1C, LIPID #### [address] [address] Monocyte, Absolute 0.7 10 3/mcL Normal 0.1-1.4 [facility] Comment on above: Performed By: #### M G, GFR, ANEU, ADIFF, CBC, CMP, A1C, LIPID #### [address] [address] Monocytes/100 WBC (Bld) 10.0 % Normal 2.0-13.0 [facility] Comment on above: Performed By: #### M G, GFR, ANEU, ADIFF, CBC, CMP, A1C, LIPID #### [address] [address] Neutrophils/100 WBC (Bld) 70.3 % Normal 50.0-75.0 [facility] Comment on above: Performed By: #### M G, GFR, ANEU, ADIFF, CBC, CMP, A1C, LIPID #### [address] [address] Basophil, Absolute 0.1 10 3/mcL Normal 0.0-0.3 [facility] Comment on above: Performed By: #### A DIFF, MDW, PRO, TROPHS, GFR, ANEU, CBC, PBNP, BMP ####[place] [address] [place], [place] [address] Basophils/100 WBC (Bld) 0.8 % Normal 0.0-2.5 [facility] Comment on above: Performed By: #### A DIFF, MDW, PRO, TROPHS, GFR, ANEU, CBC, PBNP, BMP ####[place] [address] [place], [place] [address] Eosinophil, Absolute 0.1 10 3/mcL Normal 0.0-0.7 [facility] Comment on above: Performed By: #### A DIFF, MDW, PRO, TROPHS, GFR, ANEU, CBC, PBNP, BMP ####[facility] [place], [place] [address] Eosinophils/100 WBC (Bld) 1.2 % Normal 0.0-6.0 [facility] Comment on above: Performed By: #### A DIFF, MDW, PRO, TROPHS, GFR, ANEU, CBC, PBNP, BMP ####[facility] [place], [place] [address] Lymphocyte, Absolute 1.4 10 3/mcL Normal 0.9-4.3 [facility] Comment on above: Performed By: #### A DIFF, MDW, PRO, TROPHS, GFR, ANEU, CBC, PBNP, BMP ####[facility] [place], [place] [address] Lymphocytes/100 WBC (Bld) 13.3 % Low 20.0-40.0 [facility] Comment on above: Performed By: #### A DIFF, MDW, PRO, TROPHS, GFR, ANEU, CBC, PBNP, BMP ####[place] [address] [place], [place] [address] Monocyte, Absolute 0.8 10 3/mcL Normal 0.1-1.4 [facility] Comment on above: Performed By: #### A DIFF, MDW, PRO, TROPHS, GFR, ANEU, CBC, PBNP, BMP ####[facility] [place], [place] [address] Monocytes/100 WBC (Bld) 7.6 % Normal 2.0-13.0 [facility] Comment on above: Performed By: #### A DIFF, MDW, PRO, TROPHS, GFR, ANEU, CBC, PBNP, BMP ####[address] [place], [place] [address] Neutrophils/100 WBC (Bld) 77.1 % High 50.0-75.0 [facility] Comment on above: Performed By: #### A DIFF, MDW, PRO, TROPHS, GFR, ANEU, CBC, PBNP, BMP ####[facility] [place], [place] [address] .GFRon 10-02-2024 Estimated Glomerular Filtration Rate 110 ml/min/1.73sqm Normal [facility] Comment on above: Result Comment: Stages of Chronic Kidney Disease (CKD) Stage Description eGFR(ml/min/1.73 sq.m.) CKD 1 Normal kidney function or >=90 normal kindney function with possible kidney damage (ex. Proteinuria) CKD 2 Kidney damage with mild loss 60-89 of kidney function CKD 3a Mild to moderate loss of kidney 45-59 function CKD 3b Moderate to severe loss of 30-44 of kindey function CKD 4 Severe loss of kidney function 15-29 CKD 5 Kidney failure <15 Note: (go live 2024) the eGFR calculation was updated to the 2020 CKD-EPI creatinine equation without a race factor to calculate the eGFR results. Performed By: #### M Abbey GFR, ANEU, ADIFF, CBC, CMP, A1C, LIPID #### [address] [address] Estimated Glomerular Filtration Rate 104 ml/min/1.73sqm Normal [facility] Comment on above: Result Comment: Stages of Chronic Kidney Disease (CKD) Stage Description eGFR(ml/min/1.73 sq.m.) CKD 1 Normal kidney function or >=90 normal kindney function with possible kidney damage (ex. Proteinuria) CKD 2 Kidney damage with mild loss 60-89 of kidney function CKD 3a Mild to moderate loss of kidney 45-59 function CKD 3b Moderate to severe loss of 30-44 of kindey function CKD 4 Severe loss of kidney function 15-29 CKD 5 Kidney failure <15 Note: (go live 2024) the eGFR calculation was updated to the 2020 CKD-EPI creatinine equation without a race factor to calculate the eGFR results. Performed By: #### A DIFF, MDW, PRO, TROPHS, GFR, ANEU, CBC, PBNP, BMP ####[place] [address] [place], [place] [address] .MDWon 10-02-2024 Monocyte Distribution Width 19.51 Normal 0.00-20.00 [facility] Comment on above: Result Comment: For ED adult patients suspected of sepsis, MDW<=20.0 does not rule out sepsis or risk of sepsis Performed By: #### A DIFF, MDW, PRO, TROPHS, GFR, ANEU, CBC, PBNP, BMP ####[place] [address] [place], [place] [address] .NEUABSon 10-02-2024 Neutrophil, Absolute 4.7 10 3/mcL Normal 2.3-8.1 [facility] Comment on above: Performed By: #### M G, GFR, ANEU, ADIFF, CBC, CMP, A1C, LIPID #### [address] [address] Neutrophil, Absolute 8.4 10 3/mcL High 2.3-8.1 [facility] Comment on above: Performed By: #### A DIFF, MDW, PRO, TROPHS, GFR, ANEU, CBC, PBNP, BMP ####[facility] [place], [place] [address] APTTon 10-02-2024 aPTT Coag (Bld) [Time] 36.5 s High 25.0-35.0 [facility] Comment on above: Result Comment: For Heparin anticoagulation therapy, the recommended therapeutic range is: 54-77 seconds (APTT Correlation with Anti-Xa therapeutic range of 0.3-0.7 units/ml). PLEASE REFERENCE THE PHARMACY PROTOCOL FOR DOSING. Performed By: #### M G, GFR, ANEU, ADIFF, CBC, CMP, A1C, LIPID #### [address] [address] aPTT Coag (Bld) [Time] 29.3 s Normal 25.0-35.0 [facility] Comment on above: Result Comment: For Heparin anticoagulation therapy, the recommended therapeutic range is: 54-77 seconds (APTT Correlation with Anti-Xa therapeutic range of 0.3-0.7 units/ml). PLEASE REFERENCE THE PHARMACY PROTOCOL FOR DOSING. Performed By: #### M G, GFR, ANEU, ADIFF, CBC, CMP, A1C, LIPID #### [address] [address] BMPon 10-02-2024 BUN/Creatinine Ratio 14 ratio Normal 7-27 [facility] Comment on above: Performed By: #### A DIFF, MDW, PRO, TROPHS, GFR, ANEU, CBC, PBNP, BMP ####[facility] [place], [place] [address] Calcium [Mass/Vol] 8.9 mg/dL Normal 8.4-10.2 [facility] Comment on above: Performed By: #### A DIFF, MDW, PRO, TROPHS, GFR, ANEU, CBC, PBNP, BMP ####[place] [address] [place], [place] [address] Chloride [Moles/Vol] 101 mmol/L Normal 98-107 [facility] Comment on above: Performed By: #### A DIFF, MDW, PRO, TROPHS, GFR, ANEU, CBC, PBNP, BMP ####[place] [address] [place], [place] [address] CO2 [Moles/Vol] 31 mmol/L High 22-29 [facility] Comment on above: Performed By: #### A ELY LLAMAS, PRO, TROPHS, GFR, ANEU, CBC, PBNP, BMP ####[address] [place], [place] [address] Creatinine [Mass/Vol] 0.85 mg/dL Normal 0.67-1.17 [facility] Comment on above: Performed By: #### A ELY LLAAMS, PRO, TROPHS, GFR, ANEU, CBC, PBNP, BMP ####[address] [place], [place] [address] Electrolyte Balance 6.0 mEq/L Normal 4.0-15.0 [facility] Comment on above: Performed By: #### A ELY LLAMAS, PRO, TROPHS, GFR, ANEU, CBC, PBNP, BMP ####[address] [address] Glucose [Mass/Vol] 157 mg/dL High 70-105 [facility] Comment on above: Performed By: #### A ELY LLAMAS, PRO, TROPHS, GFR, ANEU, CBC, PBNP, BMP ####[address] [place], [place] [address] Potassium [Moles/Vol] 3.1 mmol/L Low 3.5-5.1 [facility] Comment on above: Performed By: #### A ELY LLAMAS, PRO, TROPHS, GFR, ANEU, CBC, PBNP, BMP ####[address] [address] Sodium [Moles/Vol] 138 mmol/L Normal 136-145 [facility] Comment on above: Performed By: #### A ELY LLAMAS, PRO, TROPHS, GFR, ANEU, CBC, PBNP, BMP ####[address] [place], [place] [address] Urea nitrogen [Mass/Vol] 12 mg/dL Normal 7-18 [facility] Comment on above: Performed By: #### A ELY LLAMAS, PRO, TROPHS, GFR, ANEU, CBC, PBNP, BMP ####[place] [address] [place], [place] [address] CAIONon 10-02-2024 Calcium Ionized 1.09 mmol/L Low 1.12-1.32 [facility] Comment on above: Performed By: #### M G, GFR, ANEU, ADIFF, CBC, CMP, A1C, LIPID #### [address] [address] CBCon 10-02-2024 Erythrocyte distribution width (RBC) [Ratio] 16.6 % High 11.5-15.5 [facility] Comment on above: Performed By: #### M G, GFR, ANEU, ADIFF, CBC, CMP, A1C, LIPID #### [place] [address] Hematocrit (Bld) [Volume fraction] 47.4 % Normal 40.0-52.0 [facility] Comment on above: Performed By: #### M G, GFR, ANEU, ADIFF, CBC, CMP, A1C, LIPID #### [place] [id number] Hgb 15.6 G/dL Normal 13.0-17.5 [facility] Comment on above: Performed By: #### M G, GFR, ANEU, ADIFF, CBC, CMP, A1C, LIPID #### [place] [id number] MCH (RBC) [Entitic mass] 28.7 pg Normal 27.0-33.0 [facility] Comment on above: Performed By: #### M G, GFR, ANEU, ADIFF, CBC, CMP, A1C, LIPID #### [place] [id number] MCHC 32.9 G/dL Normal 32.0-36.0 [facility] Comment on above: Performed By: #### M G, GFR, ANEU, ADIFF, CBC, CMP, A1C, LIPID #### [place] [id number] MCV (RBC) [Entitic vol] 87.2 fL Normal 81.0-100.0 [facility] Comment on above: Performed By: #### M G, GFR, ANEU, ADIFF, CBC, CMP, A1C, LIPID #### [address] [address] Platelet 139 10 3/mcL Low 150-450 [facility] Comment on above: Performed By: #### M G, GFR, ANEU, ADIFF, CBC, CMP, A1C, LIPID #### [address] [address] Platelet mean volume (Bld) [Entitic vol] 7.7 fL Normal 6.4-10.5 [facility] Comment on above: Performed By: #### M G, GFR, ANEU, ADIFF, CBC, CMP, A1C, LIPID #### [address] [address] RBC 5.44 10 6/mcL Normal 4.50-6.00 [facility] Comment on above: Performed By: #### M G, GFR, ANEU, ADIFF, CBC, CMP, A1C, LIPID #### [address] [address] WBC 6.6 10 3/mcL Normal 4.5-10.8 [facility] Comment on above: Performed By: #### M G, GFR, ANEU, ADIFF, CBC, CMP, A1C, LIPID #### [address] [address] Erythrocyte distribution width (RBC) [Ratio] 16.6 % High 11.5-15.5 [facility] Comment on above: Performed By: #### A DIFFELY, PRO, TROPHS, GFR, ANEU, CBC, PBNP, BMP ####[address] [address] Hematocrit (Bld) [Volume fraction] 51.4 % Normal 40.0-52.0 [facility] Comment on above: Performed By: #### A FARHAD MDW, PRO, TROPHS, GFR, ANEU, CBC, PBNP, BMP ####[place] [address] [place], [place] [address] Hgb 17.1 G/dL Normal 13.0-17.5 [facility] Comment on above: Performed By: #### A DIFF, MDW, PRO, TROPHS, GFR, ANEU, CBC, PBNP, BMP ####[place] [address] [place] [id number] MCH (RBC) [Entitic mass] 28.9 pg Normal 27.0-33.0 [facility] Comment on above: Performed By: #### A DIFF, MDW, PRO, TROPHS, GFR, ANEU, CBC, PBNP, BMP ####[place] [address] [place] [id number] MCHC 33.3 G/dL Normal 32.0-36.0 [facility] Comment on above: Performed By: #### A DIFF, MDW, PRO, TROPHS, GFR, ANEU, CBC, PBNP, BMP ####[place] [address] [place] [id number] MCV (RBC) [Entitic vol] 86.7 fL Normal 81.0-100.0 [facility] Comment on above: Performed By: #### A DIFF, MDW, PRO, TROPHS, GFR, ANEU, CBC, PBNP, BMP ####[place] [address] Platelet 199 10 3/mcL Normal 150-450 [facility] Comment on above: Performed By: #### A DIFF, MDW, PRO, TROPHS, GFR, ANEU, CBC, PBNP, BMP ####[place] [address] Platelet mean volume (Bld) [Entitic vol] 7.3 fL Normal 6.4-10.5 [facility] Comment on above: Performed By: #### A DIFF, MDW, PRO, TROPHS, GFR, ANEU, CBC, PBNP, BMP ####[place] [address] RBC 5.93 10 6/mcL Normal 4.50-6.00 [facility] Comment on above: Performed By: #### A DIFF, MDW, PRO, TROPHS, GFR, ANEU, CBC, PBNP, BMP ####[place] [address] [place], [place] [address] WBC 10.9 10 3/mcL High 4.5-10.8 [facility] Comment on above: Performed By: #### A FARHAD, ELY, PRO, TROPHS, GFR, ANEU, CBC, PBNP, BMP ####[place] [address] [place], [place] [address] CMPon 10-02-2024 Albumin Level 3.2 G/dL Normal 3.2-4.8 [facility] Comment on above: Performed By: #### M G, GFR, ANEU, ADIFF, CBC, CMP, A1C, LIPID #### [address] [address] Albumin/Globulin [Mass ratio] 0.9 {ratio} Normal 0.9-1.6 [facility] Comment on above: Performed By: #### M G, GFR, ANEU, ADIFF, CBC, CMP, A1C, LIPID #### [address] [address] ALP [Catalytic activity/Vol] 60 U/L Normal 38-126 [facility] Comment on above: Performed By: #### M G, GFR, ANEU, ADIFF, CBC, CMP, A1C, LIPID #### [address] [address] ALT/SGPT <8 Low 12-55 [facility] Comment on above: Performed By: #### M G, GFR, ANEU, ADIFF, CBC, CMP, A1C, LIPID #### [address] [address] AST [Catalytic activity/Vol] 15 U/L Normal 8-34 [facility] Comment on above: Performed By: #### M G, GFR, ANEU, ADIFF, CBC, CMP, A1C, LIPID #### [address] [address] Bili Total 0.60 mg/dL Normal 0.20-1.20 [facility] Comment on above: Result Comment: Use of this assay is not recommended for patients undergoing treatment with eltrombopag due to the potential for falsely elevated results. Performed By: #### M G, GFR, ANEU, ADIFF, CBC, CMP, A1C, LIPID #### [address] [address] BUN/Creatinine Ratio 15.5 ratio Normal 10.0-22.0 [facility] Comment on above: Performed By: #### M G, GFR, ANEU, ADIFF, CBC, CMP, A1C, LIPID #### [address] [address] Calcium [Mass/Vol] 8.4 mg/dL Low 8.7-10.4 [facility] Comment on above: Performed By: #### M G, GFR, ANEU, ADIFF, CBC, CMP, A1C, LIPID #### [address] [address] Chloride [Moles/Vol] 102 mmol/L Normal 98-110 [facility] Comment on above: Performed By: #### M G, GFR, ANEU, ADIFF, CBC, CMP, A1C, LIPID #### [place] [id number] CO2 [Moles/Vol] 25 mmol/L Normal 22-32 [facility] Comment on above: Performed By: #### M G, GFR, ANEU, ADIFF, CBC, CMP, A1C, LIPID #### [place] [id number] Creatinine [Mass/Vol] 0.71 mg/dL Normal 0.60-1.40 [facility] Comment on above: Result Comment: Test ing performed on Tactilize analyzer using enzymatic creatinine methodology. Performed By: #### M G, GFR, ANEU, ADIFF, CBC, CMP, A1C, LIPID #### [address] [address] Electrolyte Balance 12.0 mEq/L Normal 4.0-15.0 [facility] Comment on above: Performed By: #### M G, GFR, ANEU, ADIFF, CBC, CMP, A1C, LIPID #### [place] [id number] Globulin 3.5 G/dL Normal 2.5-4.2 [facility] Comment on above: Performed By: #### M G, GFR, ANEU, ADIFF, CBC, CMP, A1C, LIPID #### [address] [id number] Glucose [Mass/Vol] 109 mg/dL Normal 70-110 [facility] Comment on above: Performed By: #### M G, GFR, ANEU, ADIFF, CBC, CMP, A1C, LIPID #### [place] [id number] Potassium [Moles/Vol] 3.5 mmol/L Normal 3.5-5.0 [facility] Comment on above: Performed By: #### M G, GFR, ANEU, ADIFF, CBC, CMP, A1C, LIPID #### [address] [id number] Sodium [Moles/Vol] 139 mmol/L Normal 136-145 [facility] Comment on above: Performed By: #### M G, GFR, ANEU, ADIFF, CBC, CMP, A1C, LIPID #### [place] [id number] Total Protein 6.7 G/dL Normal 5.7-8.2 [facility] Comment on above: Performed By: #### M G, GFR, ANEU, ADIFF, CBC, CMP, A1C, LIPID #### [place] [id number] Urea nitrogen [Mass/Vol] 11.0 mg/dL Normal 8.0-22.0 [facility] Comment on above: Performed By: #### M G, GFR, ANEU, ADIFF, CBC, CMP, A1C, LIPID #### [address] [id number] LABORATORYOrdered By: SYSTEM SYSTEM on 10-02-2024 aPTT Coag (Bld) [Time] 36.5 s High 25.0 - 35.0 seconds [facility] Comment on above: Interpretive Data: F or Heparin anticoagulation therapy, the recommended therapeutic range is: 54-77 seconds (APTT Correlation with Anti-Xa therapeutic range of 0.3-0.7 units/ml). PLEASE REFERENCE THE PHARMACY PROTOCOL FOR DOSING. Albumin BCP dye [Mass/Vol] 3.2 G/dL Normal 3.2 - 4.8 G/dL AH ADM SS Albumin/Globulin [Mass ratio] 0.9 {ratio} Normal 0.9 - 1.6 ratio AH ADM SS ALP [Catalytic activity/Vol] 60 U/L Normal 38 - 126 U/L AH ADM SS ALT No additional P-5'-P [Catalytic activity/Vol] U/L 1 Low 12 - 55 U/L AH ADM SS aPTT Coag (Bld) [Time] 29.3 s Normal 25.0 - 35.0 seconds [facility] Comment on above: Interpretive Data: F or Heparin anticoagulation therapy, the recommended therapeutic range is: 54-77 seconds (APTT Correlation with Anti-Xa therapeutic range of 0.3-0.7 units/ml). PLEASE REFERENCE THE PHARMACY PROTOCOL FOR DOSING. AST [Catalytic activity/Vol] 15 U/L Normal 8 - 34 U/L ADM SS Basophils (Bld) [#/Vol] 0.0 103/mcL Normal 0.0 - 0.3 10^3/mcL Workflow SS Basophils/100 WBC (Bld) 0.6 % Normal 0.0 - 2.5 % Workflow SS Bilirubin [Mass/Vol] 0.60 mg/dL Normal 0.20 - 1.20 mg/dL ADM SS Comment on above: Interpretive Data: U se of this assay is not recommended for patients undergoing treatment with eltrombopag due to the potential for falsely elevated results. Calcium [Mass/Vol] 8.4 mg/dL Low 8.7 - 10. 4 mg/dL ADM SS Chloride [Moles/Vol] 102 mmol/L Normal 98 - 11 0 mEq/L ADM SS CO2 [Moles/Vol] 25 mmol/L Normal 22 - 32 mEq/L AH ADM SS Creatinine [Mass/Vol] 0.71 mg/dL Normal 0.60 - 1.40 mg/dL ADM SS Comment on above: Interpretive Data: T esting performed on [employer] analyzer using enzymatic creatinine methodology. Electrolyte Balance 12.0 mEq/L Normal 4.0 - 15 .0 mEq/L AH ADM SS Eosinophils (Bld) [#/Vol] 0.1 103/mcL Normal 0.0 - 0.7 10^3/mcL Workflow SS Eosinophils/100 WBC (Bld) 1.0 % Normal 0.0 - 6.0 % Workflow SS Erythrocyte distribution width (RBC) [Ratio] 16.6 % High 11.5 - 15.5 % Workflow SS Estimated Glomerular Filtration Rate 110 ml/min/1.73sqm Invalid Interpretation Code [facility] Comment on above: Interpretive Data: Stages of Chronic Kidney Disease (CKD) Stage Description eGFR(ml/min/1.73 sq.m.) CKD 1 Normal kidney function or >=90 normal kindney function with possible kidney damage (ex. Proteinuria) CKD 2 Kidney damage with mild loss 60-89 of kidney function CKD 3a Mild to moderate loss of kidney 45-59 function CKD 3b Moderate to severe loss of 30-44 of kindey function CKD 4 Severe loss of kidney function 15-29 CKD 5 Kidney failure <15 Note: (go live 2024) the eGFR calculation was updated to the 2020 CKD-EPI creatinine equation without a race factor to calculate the eGFR results. Globulin 3.5 G/dL Normal 2.5 - 4.2 G/dL [facility] SS Glucose [Mass/Vol] 109 mg/dL Normal 70 - 110 mg/dL [facility] Hematocrit (Bld) [Volume fraction] 47.4 % Normal 40.0 - 52.0 % Workflow SS Hemoglobin (Bld) [Mass/Vol] 15.6 G/dL Normal 13.0 - 17.5 G/dL Workflow SS Lymphocytes (Bld) [#/Vol] 1.2 103/mcL Normal 0.9 - 4.3 10^3/mcL Workflow SS Lymphocytes/100 WBC (Bld) 18.1 % Low 20.0 - 40.0 % Workflow SS Magnesium [Mass/Vol] 1.8 mg/dL Normal 1.6 - 2 .4 mg/dL [facility] SS MCH (RBC) [Entitic mass] 28.7 pg Normal 27.0 - 33.0 pg Workflow SS MCHC 32.9 G/dL Normal 32.0 - 36.0 G/dL Workflow SS MCV (RBC) [Entitic vol] 87.2 fL Normal 81.0 - 100.0 fL Workflow SS Monocytes (Bld) [#/Vol] 0.7 103/mcL Normal 0.1 - 1.4 10^3/mcL Workflow SS Monocytes/100 WBC (Bld) 10.0 % Normal 2.0 - 13.0 % Workflow SS Natriuretic peptide.B prohormone N-Terminal IA [Mass/Vol] 2223 pg/mL High 0 - 900 pg/mL ADM SS Neutrophils (Bld) [#/Vol] 4.7 103/mcL Normal 2.3 - 8.1 10^3/mcL Workflow SS Neutrophils/100 WBC (Bld) 70.3 % Normal 50.0 - 75.0 % Workflow SS Phosphate [Mass/Vol] 2.2 mg/dL Low 2.4 - 5 .1 mg/dL ADM SS Comment on above: Interpretive Data: * *Note - New Reference Range in effect 19 Platelet mean volume (Bld) [Entitic vol] 7.7 fL Normal 6.4 - 10.5 fL Workflow SS Platelets (Bld) [#/Vol] 139 103/mcL Low 150 - 450 10^3/mcL Workflow SS Potassium [Moles/Vol] 3.5 mmol/L Normal 3.5 - 5.0 mEq/L ADM SS Protein [Mass/Vol] 6.7 G/dL Normal 5.7 - 8.2 G/dL ADM SS PT Coag (PPP) [Time] 13.4 s Normal 9.0 - 1 4.4 seconds [facility] Comment on above: Interpretive Data: E ffective 12/11/07, Protime results may be affected by some antibiotics (i.e. Ciprofloxacin, Azithromycin, Bactrim) which may potentiate the action of oral anticoagulants, with further increases in Protime/INR. PT International Ratio 1.2 ratio Invalid Interpretation Code [facility] Comment on above: Interpretive Data: Baljinder linn [employer] (CHEST, 1992, 102:312S-25S) recommended therapeutic range for oral anticoagulant therapy is: LOW RISK: Prophylaxis of venous thrombosis INR: 2.0-3.0 Treatment of pulmonary embolism 2.0-3.0 Prevention of systemic embolism 2.0-3.0 HIGH RISK: Mechanical prosthetic valves 2.5-3.5 RBC (Bld) [#/Vol] 5.44 106/mcL Normal 4.50 - 6.0 0 10^6/mcL Workflow SS Sodium [Moles/Vol] 139 mmol/L Normal 136 - 145 mEq/L AH ADM SS Troponin I.cardiac DL <= 0.01 ng/mL [Mass/Vol] 6 ng/L Normal 0 - 54 ng/L AH ADM SS Comment on above: Interpretive Data: High Sensitive Troponin I Reference Ranges: Female: 0-34 ng/L Male: 0-54 ng/L Testing performed on [employer] analyzer using direct chemiluminescent technology. TSH Qn 1.923 mIU/mL Normal 0.550 - 4.780 mIU/mL AH ADM SS Urea nitrogen [Mass/Vol] 11.0 mg/dL Normal 8.0 - 22.0 mg/dL AH ADM SS Urea nitrogen/Creatinine [Mass ratio] 15.5 ratio Normal 10.0 - 22.0 ratio AH ADM SS WBC (Bld) [#/Vol] 6.6 103/mcL Normal 4.5 - 10.8 10^3/mcL AH Workflow SS Troponin I.cardiac DL <= 0.01 ng/mL [Mass/Vol] 9 ng/L Normal 0 - 76 ng/L AO ADM SS Comment on above: Interpretive Data: H igh Sensitive Troponin I Reference Ranges: Female: 0-51 ng/L Male: 0-76 ng/L Testing performed on [employer] using a homogeneous sandwich chemiluminescent immunoassay based on Fara technology. Basophils (Bld) [#/Vol] 0.1 103/mcL Normal 0.0 - 0.3 10^3/mcL AO Workflow SS Basophils/100 WBC (Bld) 0.8 % Normal 0.0 - 2.5 % AO Workflow SS Calcium [Mass/Vol] 8.9 mg/dL Normal 8.4 - 10. 2 mg/dL AO ADM SS Chloride [Moles/Vol] 101 mmol/L Normal 98 - 10 7 mmol/L AO ADM SS CO2 [Moles/Vol] 31 mmol/L High 22 - 29 mmol/L AO ADM SS Creatinine [Mass/Vol] 0.85 mg/dL Normal 0.67 - 1.17 mg/dL AO ADM SS Electrolyte Balance 6.0 mEq/L Normal 4.0 - 15 .0 mEq/L AO ADM SS Eosinophil, Absolute 0.1 103/mcL Normal 0.0 - 0 .7 10^3/mcL AO Workflow SS Eosinophils/100 WBC (Bld) 1.2 % Normal 0.0 - 6.0 % AO Workflow SS Erythrocyte distribution width (RBC) [Ratio] 16.6 % High 11.5 - 15.5 % AO Workflow SS Estimated Glomerular Filtration Rate 104 ml/min/1.73sqm Invalid Interpretation Code [facility] S Comment on above: Interpretive Data: Stages of Chronic Kidney Disease (CKD) Stage Description eGFR(ml/min/1.73 sq.m.) CKD 1 Normal kidney function or >=90 normal kindney function with possible kidney damage (ex. Proteinuria) CKD 2 Kidney damage with mild loss 60-89 of kidney function CKD 3a Mild to moderate loss of kidney 45-59 function CKD 3b Moderate to severe loss of 30-44 of kindey function CKD 4 Severe loss of kidney function 15-29 CKD 5 Kidney failure <15 Note: (go live 2024) the eGFR calculation was updated to the 2020 CKD-EPI creatinine equation without a race factor to calculate the eGFR results. Glucose [Mass/Vol] 157 mg/dL High 70 - 105 mg/dL AO ADM SS Hematocrit (Bld) [Volume fraction] 51.4 % Normal 40.0 - 52.0 % AO Workflow SS Hemoglobin (Bld) [Mass/Vol] 17.1 G/dL Normal 13.0 - 17.5 G/dL AO Workflow SS INR Coag (PPP) [Relative time] 1.2 {INR} Invalid Interpretation Code AO [facility] SS Comment on above: Interpretive Data: Baljinder linn [employer] (CHEST, 1991, 102:312S-25S) recommended therapeutic range for oral anticoagulant therapy is: LOW RISK: Prophylaxis of venous thrombosis INR: 2.0-3.0 Treatment of pulmonary embolism 2.0-3.0 Prevention of systemic embolism 2.0-3.0 HIGH RISK: Mechanical prosthetic valves 2.5-3.5 Lymphocytes (Bld) [#/Vol] 1.4 103/mcL Normal 0.9 - 4.3 10^3/mcL AO Workflow SS Lymphocytes/100 WBC (Bld) 13.3 % Low 20.0 - 40.0 % AO Workflow SS Magnesium [Mass/Vol] 1.7 mg/dL Low 1.8 - 2 .4 mg/dL AO ADM SS MCH (RBC) [Entitic mass] 28.9 pg Normal 27.0 - 33.0 pg AO Workflow SS MCHC 33.3 G/dL Normal 32.0 - 36.0 G/dL AO Workflow SS MCV (RBC) [Entitic vol] 86.7 fL Normal 81.0 - 100.0 fL AO Workflow SS Monocyte distribution width Auto (Bld) [Entitic vol] 19.51 1 Normal 0.00 - 20.00 AO Workflow SS Comment on above: Result Comment: For ED adult patients suspected of sepsis, MDW<=20.0 does not rule out sepsis or risk of sepsis Monocytes (Bld) [#/Vol] 0.8 103/mcL Normal 0.1 - 1.4 10^3/mcL AO Workflow SS Monocytes/100 WBC (Bld) 7.6 % Normal 2.0 - 13.0 % AO Workflow SS Natriuretic peptide.B prohormone N-Terminal [Mass/Vol] 973 pg/mL High 0 - 125 pg/mL AO ADM SS Comment on above: Interpretive Data: N T-proBNP results of less than 300 pg/mL effectively rules out acute congestive heart failure with 99% negative predictive value. Neutrophils (Bld) [#/Vol] 8.4 103/mcL High 2.3 - 8.1 10^3/mcL AO Workflow SS Neutrophils/100 WBC (Bld) 77.1 % High 50.0 - 75.0 % AO Workflow SS Platelet mean volume (Bld) [Entitic vol] 7.3 fL Normal 6.4 - 10.5 fL AO Workflow SS Platelets (Bld) [#/Vol] 199 103/mcL Normal 150 - 450 10^3/mcL AO Workflow SS Potassium [Moles/Vol] 3.1 mmol/L Low 3.5 - 5.1 mmol/L AO ADM SS PT Coag (PPP) [Time] 13.5 s Normal 9.0 - 1 4.4 seconds AO [facility] SS RBC (Bld) [#/Vol] 5.93 106/mcL Normal 4.50 - 6.0 0 10^6/mcL AO Workflow SS Sodium [Moles/Vol] 138 mmol/L Normal 136 - 145 mmol/L AO ADM SS Troponin I.cardiac DL <= 0.01 ng/mL [Mass/Vol] 9 ng/L Normal 0 - 76 ng/L AO ADM SS Comment on above: Interpretive Data: H igh Sensitive Troponin I Reference Ranges: Female: 0-51 ng/L Male: 0-76 ng/L Testing performed on [employer] using a homogeneous sandwich chemiluminescent immunoassay based on Fara technology. Urea nitrogen [Mass/Vol] 12 mg/dL Normal 7 - 18 mg/dL AO ADM SS Urea nitrogen/Creatinine [Mass ratio] 14 ratio Normal 7 - 27 ratio AO ADM SS WBC (Bld) [#/Vol] 10.9 103/mcL High 4.5 - 10.8 10^3/mcL AO Workflow SS LABORATORYOrdered By: Nelli Lindsey on 10-02-2024 Calcium Ionized 1.09 mmol/L Low 1.12 - 1.32 mmol/L Main Rapid Comm SS MGon 10-02-2024 Magnesium [Mass/Vol] 1.8 mg/dL Normal 1.6-2.4 [facility] Comment on above: Performed By: #### M G, GFR, ANEU, ADIFF, CBC, CMP, A1C, LIPID #### [address] [address] Magnesium [Mass/Vol] 1.7 mg/dL Low 1.8-2.4 [facility] Comment on above: Performed By: #### Rody G ####[address] [place], [place] [address] PBNPon 10-02-2024 Natriuretic peptide B (Bld) [Mass/Vol] 2223 pg/mL High 0-900 [facility] Comment on above: Performed By: #### M G, GFR, ANEU, ADIFF, CBC, CMP, A1C, LIPID #### [address] [address] Natriuretic peptide B (Bld) [Mass/Vol] 973 pg/mL High 0-125 [facility] Comment on above: Result Comment: NT-p roBNP results of less than 300 pg/mL effectively rules out acute congestive heart failure with 99% negative predictive value. Performed By: #### A ELY LLAMAS, PRO, TROPHS, GFR, ANEU, CBC, PBNP, BMP ####[address] [place], [place] [address] PHOSon 10-02-2024 Phosphate [Mass/Vol] 2.2 mg/dL Low 2.4-5.1 [facility] Comment on above: Result Comment: No te - New Reference Range in effect 19 Performed By: #### M G, GFR, ANEU, ADIFF, CBC, CMP, A1C, LIPID #### [facility] [address] [place] [id number] PROon 10-02-2024 INR Coag (PPP) [Relative time] 1.2 {INR} Normal [facility] Comment on above: Result Comment: [employer] (CHEST, 1991, 102:312S-25S) recommended therapeutic range for oral anticoagulant therapy is: LOW RISK: Prophylaxis of venous thrombosis INR: 2.0-3.0 Treatment of pulmonary embolism 2.0-3.0 Prevention of systemic embolism 2.0-3.0 HIGH RISK: Mechanical prosthetic valves 2.5-3.5 Performed By: #### M G, GFR, ANEU, ADIFF, CBC, CMP, A1C, LIPID #### [facility] [address] [place] [address] PT Coag (PPP) [Time] 13.4 s Normal 9.0-14.4 [facility] Comment on above: Result Comment: Effe ctive 12/11/07, Protime results may be affected by some antibiotics (i.e. Ciprofloxacin, Azithromycin, Bactrim) which may potentiate the action of oral anticoagulants, with further increases in Protime/INR. Performed By: #### M G, GFR, ANEU, ADIFF, CBC, CMP, A1C, LIPID #### [facility] [address] [place] [id number] PT Coag (PPP) [Time] 13.5 s Normal 9.0-14.4 [facility] Comment on above: Performed By: #### A DIFF, MDW, PRO, TROPHS, GFR, ANEU, CBC, PBNP, BMP ####[facility] [place] [address] PT International Ratio 1.2 Normal [facility] Comment on above: Result Comment: [employer] (CHEST, 1991, 102:312S-25S) recommended therapeutic range for oral anticoagulant therapy is: LOW RISK: Prophylaxis of venous thrombosis INR: 2.0-3.0 Treatment of pulmonary embolism 2.0-3.0 Prevention of systemic embolism 2.0-3.0 HIGH RISK: Mechanical prosthetic valves 2.5-3.5 Performed By: #### A ELY LLAMAS, PRO, TROPHS, GFR, ANEU, CBC, PBNP, BMP ####[address] [place], [place] [address] [facility] High Sensitivity Troponin I 6 ng/L Normal 0-54 [facility] Comment on above: Result Comment: High Sensitive Troponin I Reference Ranges: Female: 0-34 ng/L Male: 0-54 ng/L Testing performed on [employer] analyzer using direct chemiluminescent technology. Performed By: #### M G, GFR, ANEU, ADIFF, CBC, CMP, A1C, LIPID #### [address] [address] High Sensitivity Troponin I 9 ng/L Normal 0-76 [facility] Comment on above: Result Comment: High Sensitive Troponin I Reference Ranges: Female: 0-51 ng/L Male: 0-76 ng/L Testing performed on [employer] using a homogeneous sandwich chemiluminescent immunoassay based on Fara technology. Performed By: #### Baljinder RAMIREZ ####[address] [place], [place] [address] High Sensitivity Troponin I 9 ng/L Normal 0-76 [facility] Comment on above: Result Comment: High Sensitive Troponin I Reference Ranges: Female: 0-51 ng/L Male: 0-76 ng/L Testing performed on [employer] EXL using a homogeneous sandwich chemiluminescent immunoassay based on Fara technology. Performed By: #### A ELY LLAMAS, , TROPHS, GFR, ANEU, CBC, PBNP, BMP ###[address] [place], [place] [address] TSHon 10-02-2024 TSH 1.923 mIU/mL Normal 0.550-4.780 [facility] Comment on above: Performed By: #### M G, GFR, ANEU, ADIFF, CBC, CMP, A1C, LIPID #### [address] [address] XR CHEST 1 VIEWon 10-02-2024 XR CHEST 1 VIEW ORIGINAL EXAMINATION: ONE XRAY VIEW OF THE CHEST10/02/2024 1:43 am COMPARISON: 08/27/2024 HISTORY: ORDERING SYSTEM PROVIDED HISTORY: Reason for Exam: chest pain FINDINGS: Suboptimal evaluation due to body habitus, suboptimal positioning and poor penetration factors Low lung volumes with hypoventilatory changes. Cardiac silhouette enlargement, may be exaggerated due to low lung volumes. Bilateral prominent interstitial markings, possible exaggeration due to low lung volumes. No large pleural effusion. No pneumothorax. No focal consolidation seen. There are no acute abnormalities to osseous structures. IMPRESSION: Low lung volumes with hypoventilatory changes. Cardiac silhouette enlargement and prominent interstitial markings, exaggerated due to low lung volumes. I have personally reviewed the images of this examination, and agree with the resident's findings and interpretation. Interpreted by: Darnell Molina MD Preliminary Report By: Jordon Levin Electronically signed By Darnell Molina MD Dictated Date: 10/02/2024 1:53:31 AM Prelim Date: 10/02/2024 1:57:22 AM Sign Date: 10/02/2024 2:02:33 AM Ordering Provider: DELORES MURO [facility] XR ANKLE MINIMUM 3 VIEWS LEF Ton 08-29-2024 XR ANKLE MINIMUM 3 VIEWS LEFT ORIGINAL EXAMINATION: THREE XRAY VIEWS OF THE LEFT ANKLE 08/29/2024 3:33 pm COMPARISON: None. HISTORY: ORDERING SYSTEM PROVIDED HISTORY: Reason for Exam: fall, ankle pain/edema FINDINGS: Diffuse swelling of the lower extremity with areas of increased subcutaneous density which may be related to edema and or hematoma. There is an acute oblique distal fibular diaphyseal fracture which extends into the tibiofibular joint space. There is no significant tibiofibular widening. Chronically fragmented ossicles at the tip of the medial malleolus. Talar dome is preserved. Chronically fragmented ossicles at the tip of the lateral malleolus. Plantar and retrocalcaneal enthesopathy. Ankle joint effusion. Os trigonum. Dorsal talar spurring. Thickening of the distal Achilles tendon. IMPRESSION: 1. Acute oblique distal fibular diaphysis fracture which extends into the tibiofibular joint space. There is no significant tibiofibular widening. 2. Diffuse swelling with subcutaneous edema and or hematoma. 3. Tibiotalar joint effusion. 4. Sequela of remote medial and lateral malleolar injury. Interpreted by: Trinidad Evans Preliminary Report By: Trinidad Evans Electronically signed By Trinidad Evans Dictated Date: 08/29/2024 3:50:25 PM Prelim Date: 08/29/2024 3:52:38 PM Sign Date: 08/29/2024 3:52:38 PM Ordering Provider: EDER FARFAN [facility] XR CHEST 2 VIEWSon XR CHEST 2 VIEWS ORIGINAL EXAMINATION: TWO XRAY VIEWS OF THE CHEST 08/27/2024 4:38 pm COMPARISON: 08/13/2024 HISTORY: ORDERING SYSTEM PROVIDED HISTORY: Reason for Exam: cough, dyspnea FINDINGS: The lungs are without acute focal process. There is no effusion or pneumothorax. The cardiomediastinal silhouette is without acute process. The osseous structures are without acute process. IMPRESSION: No acute process. Interpreted by: Raad Fritz DO Preliminary Report By: Raad Fritz DO Electronically signed By Raad Fritz DO Dictated Date: 08/29/2024 4:51:08 PM Prelim Date: 08/29/2024 4:51:29 PM Sign Date: 08/29/2024 4:51:29 PM Ordering Provider: ISADORA CORREA [facility] .Auto Diffon 08-13-2024 Basophil, Absolute 0.0 10 3/mcL Normal 0.0-0.2 [facility] Comment on above: Performed By: #### A ERIC, GFR, CBC, CMP, PBNP, ADIFF, TROPHAlexys, W ####[facility] [place], [place] [address] Basophils/100 WBC (Bld) 0.7 % Normal 0.0-2.5 [facility] Comment on above: Performed By: #### A ERIC, GFR, CBC, CMP, PBNP, ADIFF, RAMANA, W ####[address] [place], [place] [address] Eosinophil, Absolute 0.1 10 3/mcL Normal 0.0-0.7 [facility] Comment on above: Performed By: #### A ERIC, GFR, CBC, CMP, PBNP, ADIFF, TROPHAlexys, W ####[address] [place], [place] [address] Eosinophils/100 WBC (Bld) 1.3 % Normal 0.0-7.0 [facility] Comment on above: Performed By: #### A ERIC, GFR, CBC, CMP, PBNP, ADRAMANA MARTÍNEZ MDW ####[address] [place], [place] [address] Lymphocyte, Absolute 0.8 10 3/mcL Low 0.9-4.3 [facility] Comment on above: Performed By: #### A ERIC, GFR, CBC, CMP, PBNP, RAMANA FOUNTAIN MDW ####[address] [place], [place] [address] Lymphocytes/100 WBC (Bld) 19.9 % Low 20.0-40.0 [facility] Comment on above: Performed By: #### A ERIC, GFR, CBC, CMP, PBNP, RAMANA FOUNTAIN MDW ####[address] [place], [place] [address] Monocyte, Absolute 0.3 10 3/mcL Normal 0.1-1.4 [facility] Comment on above: Performed By: #### A ERIC, GFR, CBC, CMP, PBNP, RAMANA FOUNTAIN MDW ####[address] [place], [place] [address] Monocytes/100 WBC (Bld) 6.9 % Normal 2.0-13.0 [facility] Comment on above: Performed By: #### A ERIC, GFR, CBC, CMP, PBNP, RAMANA FOUNTAIN MDW ####[address] [place], [place] [address] Neutrophils/100 WBC (Bld) 71.2 % Normal 50.0-75.0 [facility] Comment on above: Performed By: #### A ERIC, GFR, CBC, CMP, PBNP, RAMANA FOUNTAIN MDW ####[address] [place], [place] [address] .GFRon 08-13-2024 Estimated Glomerular Filtration Rate 107 ml/min/1.73sqm Normal [facility] Comment on above: Result Comment: Stages of Chronic Kidney Disease (CKD) Stage Description eGFR(ml/min/1.73 sq.m.) CKD 1 Normal kidney function or >=90 normal kindney function with possible kidney damage (ex. Proteinuria) CKD 2 Kidney damage with mild loss 60-89 of kidney function CKD 3a Mild to moderate loss of kidney 45-59 function CKD 3b Moderate to severe loss of 30-44 of kindey function CKD 4 Severe loss of kidney function 15-29 CKD 5 Kidney failure <15 Note: (go live 2024) the eGFR calculation was updated to the 2020 CKD-EPI creatinine equation without a race factor to calculate the eGFR results. Performed By: #### A ERIC, GFR, CBC, CMP, PBBAY, RAMANA FOUNTAIN MDW ####[address] [place], [place] [address] .MDWon 08-13-2024 Monocyte Distribution Width 19.39 Normal 0.00-20.00 [facility] Comment on above: Result Comment: For ED adult patients suspected of sepsis, MDW<=20.0 does not rule out sepsis or risk of sepsis Performed By: #### A ERIC, GFR, CBC, CMP, PBBAY, RAMANA FOUNTAIN MDW ####[address] [place], [place] [address] .NEUABSon 08-13-2024 Neutrophil, Absolute 2.9 10 3/mcL Normal 2.3-8.1 [facility] Comment on above: Performed By: #### A ERIC, GFR, CBC, CMP, PBNP, RAMANA FOUNTAIN MDW ####[address] [place], [place] [address] CBCon 08-13-2024 Erythrocyte distribution width (RBC) [Ratio] 17.1 % High 11.5-15.5 [facility] Comment on above: Performed By: #### A ERIC, GFR, CBC, CMP, PBNP, RAMANA FOUNTAIN MDW ####[address] [place], [place] [address] Hematocrit (Bld) [Volume fraction] 42.8 % Normal 40.0-52.0 [facility] Comment on above: Performed By: #### A ERIC, GFR, CBC, CMP, PBNP, RAMANA FOUNTAIN MDW ####[address] [place] [address] Hgb 14.0 G/dL Normal 13.0-17.5 [facility] Comment on above: Performed By: #### A ERIC, GFR, CBC, CMP, PBNP, RAMANA FOUNTAIN MDW ####[address] [place] [address] MCH (RBC) [Entitic mass] 27.9 pg Normal 27.0-33.0 [facility] Comment on above: Performed By: #### A ERIC, GFR, CBC, CMP, PBNP, RAMANA FOUNTAIN MDW ####[address] [place] [address] MCHC 32.8 G/dL Normal 32.0-36.0 [facility] Comment on above: Performed By: #### A ERIC, GFR, CBC, CMP, PBNP, RAMANA FOUNTAIN MDW ####[address] [place] [address] MCV (RBC) [Entitic vol] 84.9 fL Normal 81.0-100.0 [facility] Comment on above: Performed By: #### A ERIC, GFR, CBC, CMP, PBBAY, RAMANA FOUNTAIN MDW ####[place] [address] [place] [id number] Platelet 137 10 3/mcL Low 150-450 [facility] Comment on above: Performed By: #### A ERIC, GFR, CBC, CMP, PBNP, RAMANA FOUNTAIN MDW ####[address] [place] [address] Platelet mean volume (Bld) [Entitic vol] 6.7 fL Normal 6.4-10.5 [facility] Comment on above: Performed By: #### A ERIC, GFR, CBC, CMP, PBNP, RAMANA FOUNTAIN MDW ####[address] [place] [address] RBC 5.04 10 6/mcL Normal 4.50-6.00 [facility] Comment on above: Performed By: #### A ERIC, GFR, CBC, CMP, PBNP, RAMANA FOUNTAIN MDW ####[address] [place], [place] [address] WBC 4.1 10 3/mcL Low 4.5-10.8 [facility] Comment on above: Performed By: #### A ERIC, GFR, CBC, CMP, PBNP, RAMANA FOUNTAIN MDW ####[address] [place], [place] [address] CMPon 08-13-2024 Albumin Level 3.3 G/dL Low 3.5-5.0 [facility] Comment on above: Performed By: #### A ERIC, GFR, CBC, CMP, PBBAY, RAMANA FOUNTAIN MDW ####[address] [place], [place] [address] Albumin/Globulin [Mass ratio] 0.8 {ratio} Low 1.1-2.5 [facility] Comment on above: Performed By: #### A ERIC, GFR, CBC, CMP, PBBAY, RAMANA FOUNTAIN MDW ####[address] [place], [place] [address] ALP [Catalytic activity/Vol] 76 U/L Normal 40-135 [facility] Comment on above: Performed By: #### A ERIC, GFR, CBC, CMP, PBNP, RAMANA FOUNTAIN MDW ####[address] [place], [place] [address] ALT [Catalytic activity/Vol] 10 U/L Low 16-63 [facility] Comment on above: Performed By: #### A ERIC, GFR, CBC, CMP, PBNP, RAMANA FOUNTAIN MDW ####[address] [place], [place] [address] AST [Catalytic activity/Vol] 14 U/L Normal 10-40 [facility] Comment on above: Performed By: #### A ERIC, GFR, CBC, CMP, PBNP, ADIFF, TROPHS, MDW ####[facility] [place], [place] [address] Bili Total 0.4 mg/dL Normal 0.2-1.0 [facility] Comment on above: Result Comment: Use of this assay is not recommended for patients undergoing treatment with eltrombopag due to the potential for falsely elevated results. Performed By: #### A REIC, GFR, CBC, CMP, PBNP, RAMANA FOUNTAIN MDW ####[place] [address] [place], [place] [address] BUN/Creatinine Ratio 13 ratio Normal 7-27 [facility] Comment on above: Performed By: #### A ERIC, GFR, CBC, CMP, PBNP, RAMANA FOUNTAIN MDW ####[address] [place], [place] [address] Calcium [Mass/Vol] 8.6 mg/dL Normal 8.4-10.2 [facility] Comment on above: Performed By: #### A ERIC, GFR, CBC, CMP, PBNP, RAMANA FOUNTAIN MDW ####[address] [address] Chloride [Moles/Vol] 101 mmol/L Normal 98-107 [facility] Comment on above: Performed By: #### A ERIC, GFR, CBC, CMP, PBNP, RAMANA FOUNTAIN MDW ####[place] [address] [place], [place] [address] CO2 [Moles/Vol] 35 mmol/L High 22-29 [facility] Comment on above: Performed By: #### A ERIC, GFR, CBC, CMP, PBNP, RAMANA FOUNTAIN MDW ####[place] [address] [place], [place] [address] Creatinine [Mass/Vol] 0.78 mg/dL Normal 0.70-1.30 [facility] Comment on above: Result Comment: Test ing performed on Siemens Dimension EXL analyzer using a modified kinetic Ciera technique. Performed By: #### A ERIC, GFR, CBC, CMP, PBNP, ADMAURICIO, FAROOQS, MDW ####[address] [place], [place] [address] Electrolyte Balance 2.0 mEq/L Low 4.0-15.0 [facility] Comment on above: Performed By: #### A ERIC, GFR, CBC, CMP, PBNP, RAMANA FOUNTAIN MDW ####[address] [place], [place] [address] Globulin 3.9 G/dL High 1.5-3.8 [facility] Comment on above: Performed By: #### A ERIC, GFR, CBC, CMP, PBBAY, RAMANA FOUNTAIN MDW ####[address] [place], [place] [address] Glucose [Mass/Vol] 105 mg/dL Normal 70-105 [facility] Comment on above: Performed By: #### A ERIC, GFR, CBC, CMP, PBBAY, RAMANA FOUNTAIN MDW ####[address] [place], [place] [address] Potassium [Moles/Vol] 3.8 mmol/L Normal 3.5-5.1 [facility] Comment on above: Performed By: #### A ERIC, GFR, CBC, CMP, PBBAY, RAMANA FOUNTAIN MDW ####[address] [place], [place] [address] Sodium [Moles/Vol] 138 mmol/L Normal 136-145 [facility] Comment on above: Performed By: #### A ERIC, GFR, CBC, CMP, PBNP, RAMANA FOUNTAIN MDW ####[address] [place], [place] [address] Total Protein 7.2 G/dL Normal 6.4-8.2 [facility] Comment on above: Performed By: #### A ERIC, GFR, CBC, CMP, PBNP, RAMANA FOUNTAIN MDW ####[address] [place], [place] [address] Urea nitrogen [Mass/Vol] 10 mg/dL Normal 7-18 [facility] Comment on above: Performed By: #### A ERIC, GFR, CBC, CMP, PBNP, ADIFF, RAMANA, W ####[place] [address] CVFLURVon 08-13-2024 FLU A PCR Negative Normal Negative [facility] Comment on above: Performed By: #### C VFLURV ####[place] [address] FLU B PCR Negative Normal Negative [facility] Comment on above: Performed By: #### C VFLURV ####[place] [address] RSV PCR Negative Normal Negative [facility] Comment on above: Performed By: #### C VFLURV ####[place] [address] SARS-CoV-2 (COVID-19) RNA ROSE+probe Ql (Unsp spec) Negative Normal Negative [facility] Comment on above: Result Comment: Resu lts from the Xpert Xpress CoV-2/Flu/RSV plus test should be correlated with the clinical history, epidemiological data, and other data available to the clinical evaluating the patient. Performance of the Xpert Xpress CoV-2/Flu/RSV plus test has only been established in nasopharyngeal swab specimen. Erroneous test results might occur from improper specimen collection, failure to follow the recommended sample collection, handling and storage procedures, technical error, or sample mix-up. False negative results may occur if a virus is present at a level below the analytical limit of detection. Viral nucleic acid may persist in vivo, independent of virus viability. Detection of analyte target(s) does not imply that the corresponding virus(es) are infectious or are the causative agents for clinical symptoms. Recent patient exposure to FluMist or other live attenuated influenza vaccines may cause inaccurate positive results. Performed By: #### C VFLURV ####[place] [id number] PBNPon 08-13-2024 Natriuretic peptide B (Bld) [Mass/Vol] 456 pg/mL High 0-125 [facility] Comment on above: Result Comment: NT-p roBNP results of less than 300 pg/mL effectively rules out acute congestive heart failure with 99% negative predictive value. Performed By: #### A ERIC, GFR, CBC, CMP, PBNP, RAMNAA FOUNTAIN MDW ####[address] [place], [place] [address] TROPHSon 08-13-2024 High Sensitivity Troponin I 8 ng/L Normal 0-76 [facility] Comment on above: Result Comment: High Sensitive Troponin I Reference Ranges: Female: 0-51 ng/L Male: 0-76 ng/L Testing performed on [employer] using a homogeneous sandwich chemiluminescent immunoassay based on Fara technology. Performed By: #### A ERIC, GFR, CBC, CMP, PBNP, RAMANA FOUNTAIN MDW ####[address] [place], [place] [address] XR CHEST 1 VIEWon 08-13-2024 XR CHEST 1 VIEW ORIGINAL EXAMINATION: ONE XRAY VIEW OF THE CHEST 08/13/2024 11:51 am COMPARISON: 01/30/2024 HISTORY: ORDERING SYSTEM PROVIDED HISTORY: Reason for Exam: cough/fever; suspect pneumonia FINDINGS: Enlarged cardiac silhouette which may in part be related to portable technique. There is no overt edema. No focal consolidation. The costophrenic angles are sharp. There is no pneumothorax. Unchanged right upper lung 3 mm calcified granuloma. No acute fracture. IMPRESSION: 1. Enlarged cardiac silhouette which may in part be related to portable technique. 2. No focal consolidation. Interpreted by: Trinidad Evans Preliminary Report By: Trinidad Evans Electronically signed By Trinidad Evans Dictated Date: 08/13/2024 11:54:04 AM Prelim Date: 08/13/2024 11:55:14 AM Sign Date: 08/13/2024 11:55:14 AM Ordering Provider: WILNER JOE [facility] .GFRon 05-14-2024 GFR Non- 90 ml/min/1.73sqm [facility] Comment on above: Result Comment: GFR Population mean for , Non- Americans Ages 20-29 = 116 mL/min/1.73 sq.m. Ages 30-39 = 107 mL/min/1.73 sq.m. Ages 40-49 = 99 mL/min/1.73 sq.m. Ages 50-59 = 93 mL/min/1.73 sq.m. Ages 60-69 = 85 mL/min/1.73 sq.m. Ages 70+ = 75 mL/min/1.73 sq.m. Chronic Kidney Disease: Less than 60 mL/min/1.73 square meters End Stage Renal Disease: Less than 15 mL/min/1.73 square meters Performed By: #### G FR, LIPID, A1C, CMP ####[address] [place], [place] [address] GFR 109 ml/min/1.73sqm Normal [facility] Comment on above: Result Comment: GFR Population mean for , Non- Americans Ages 20-29 = 116 mL/min/1.73 sq.m. Ages 30-39 = 107 mL/min/1.73 sq.m. Ages 40-49 = 99 mL/min/1.73 sq.m. Ages 50-59 = 93 mL/min/1.73 sq.m. Ages 60-69 = 85 mL/min/1.73 sq.m. Ages 70+ = 75 mL/min/1.73 sq.m. Chronic Kidney Disease: Less than 60 mL/min/1.73 square meters End Stage Renal Disease: Less than 15 mL/min/1.73 square meters Performed By: #### G FR, LIPID, A1C, CMP ####[address] [place], [place] [address] A1Con 05-14-2024 Glucose [Mass/Vol] 120 mg/dL Normal [facility] Comment on above: Result Comment: Zahida mated Average Glucose calculated by equation ((28.7xA1C)-46.7) Estimated average glucose (eAG) is a calculated value from Hemoglobin A1C and is commercial representative of the average blood glucose level in the last 2-3 month period. Normal range: less than 114 mg/dL Performed By: #### G FR, LIPID, A1C, CMP ####[address] [place], [place] [address] HbA1c (Bld) [Mass fraction] 5.8 % Normal 4.3-6.4 [facility] Comment on above: Performed By: #### G FR, LIPID, A1C, CMP ####[address] [place] [id number] CMPon 05-14-2024 Albumin Level 3.4 G/dL Low 3.5-5.0 [facility] Comment on above: Performed By: #### G FR, LIPID, A1C, CMP ####[address] [place] [id number] Albumin/Globulin [Mass ratio] 0.9 {ratio} Low 1.1-2.5 [facility] Comment on above: Performed By: #### G FR, LIPID, A1C, CMP ####[address] [place] [address] ALP [Catalytic activity/Vol] 87 U/L Normal 40-135 [facility] Comment on above: Performed By: #### G FR, LIPID, A1C, CMP ####[address] [address] ALT [Catalytic activity/Vol] 17 U/L Normal 16-63 [facility] Comment on above: Performed By: #### G FR, LIPID, A1C, CMP ####[place] [address] AST [Catalytic activity/Vol] 12 U/L Normal 10-40 [facility] Comment on above: Performed By: #### G FR, LIPID, A1C, CMP ####[address] [place] [address] Bili Total 0.3 mg/dL Normal 0.2-1.0 [facility] Comment on above: Result Comment: Use of this assay is not recommended for patients undergoing treatment with eltrombopag due to the potential for falsely elevated results. Performed By: #### G FR, LIPID, A1C, CMP ####[address] [place] [address] BUN/Creatinine Ratio 15 ratio Normal 7-27 [facility] Comment on above: Performed By: #### G FR, LIPID, A1C, CMP ####[address] [place], [place] [address] Calcium [Mass/Vol] 8.9 mg/dL Normal 8.4-10.2 [facility] Comment on above: Performed By: #### G FR, LIPID, A1C, CMP ####[address] [place], [place] [address] Chloride [Moles/Vol] 101 mmol/L Normal 98-107 [facility] Comment on above: Performed By: #### G FR, LIPID, A1C, CMP ####[address] [place], [place] [address] CO2 [Moles/Vol] 34 mmol/L High 22-29 [facility] Comment on above: Performed By: #### Abbey FR, LIPID, A1C, CMP ####[address] [place], [place] [address] Creatinine [Mass/Vol] 0.89 mg/dL Normal 0.70-1.30 [facility] Comment on above: Result Comment: Test ing performed on Siemens Dimension EXL analyzer using a modified kinetic Ciera technique. Performed By: #### G FR, LIPID, A1C, CMP ####[address] [place], [place] [address] Electrolyte Balance 5.0 mEq/L Normal 4.0-15.0 [facility] Comment on above: Performed By: #### Abbey FR, LIPID, A1C, CMP ####[address] [place], [place] [address] Globulin 3.8 G/dL Normal [facility] Comment on above: Performed By: #### G FR, LIPID, A1C, CMP ####[address] [place], [place] [address] Glucose [Mass/Vol] 99 mg/dL Normal 70-105 [facility] Comment on above: Performed By: #### G FR, LIPID, A1C, CMP ####[address] [place], [place] [address] Potassium [Moles/Vol] 4.0 mmol/L Normal 3.5-5.1 [facility] Comment on above: Performed By: #### G FR, LIPID, A1C, CMP ####[address] [place], [place] [address] Sodium [Moles/Vol] 140 mmol/L Normal 136-145 [facility] Comment on above: Performed By: #### G FR, LIPID, A1C, CMP ####[facility] [place], [place] [address] Total Protein 7.2 G/dL Normal 6.4-8.2 [facility] Comment on above: Performed By: #### G FR, LIPID, A1C, CMP ####[address] [place], [place] [address] Urea nitrogen [Mass/Vol] 13 mg/dL Normal 7-18 [facility] Comment on above: Performed By: #### G FR, LIPID, A1C, CMP ####[address] [place], [place] [address] LABORATORYOrdered By: SYSTEM SYSTEM on 05-14-2024 Albumin BCP dye [Mass/Vol] 3.4 G/dL Low 3.5 - 5.0 G/dL AO ADM SS Albumin/Globulin [Mass ratio] 0.9 {ratio} Low 1.1 - 2.5 ratio AO ADM SS ALP [Catalytic activity/Vol] 87 U/L Normal 40 - 135 U/L AO ADM SS ALT With P-5'-P [Catalytic activity/Vol] 17 U/L Normal 16 - 63 U/L AO ADM SS AST With P-5'-P [Catalytic activity/Vol] 12 U/L Normal 10 - 40 U/L AO ADM SS Bilirubin [Mass/Vol] 0.3 mg/dL Normal 0.2 - 1 .0 mg/dL AO ADM SS Comment on above: Interpretive Data: U se of this assay is not recommended for patients undergoing treatment with eltrombopag due to the potential for falsely elevated results. Calcium [Mass/Vol] 8.9 mg/dL Normal 8.4 - 10. 2 mg/dL AO ADM SS Chloride [Moles/Vol] 101 mmol/L Normal 98 - 10 7 mmol/L AO ADM SS CO2 [Moles/Vol] 34 mmol/L High 22 - 29 mmol/L AO ADM SS Creatinine [Mass/Vol] 0.89 mg/dL Normal 0.70 - 1.30 mg/dL AO ADM SS Comment on above: Interpretive Data: T esting performed on Siemens Dimension EXL analyzer using a modified kinetic Ciera technique. Electrolyte Balance 5.0 mEq/L Normal 4.0 - 15 .0 mEq/L AO ADM SS GFR/1.73 sq M.predicted among blacks MDRD (S/P/Bld) [Vol rate/Area] 109 ml/min/1.73sqm Invalid Interpretation Code AO Chemistry S Comment on above: Interpretive Data: GFR Population mean for , Non- Americans Ages 20-29 = 116 mL/min/1.73 sq.m. Ages 30-39 = 107 mL/min/1.73 sq.m. Ages 40-49 = 99 mL/min/1.73 sq.m. Ages 50-59 = 93 mL/min/1.73 sq.m. Ages 60-69 = 85 mL/min/1.73 sq.m. Ages 70+ = 75 mL/min/1.73 sq.m. Chronic Kidney Disease: Less than 60 mL/min/1.73 square meters End Stage Renal Disease: Less than 15 mL/min/1.73 square meters GFR/1.73 sq M.predicted among non-blacks MDRD (S/P/Bld) [Vol rate/Area] 90 ml/min/1.73sqm Invalid Interpretation Code AO Chemistry S Comment on above: Interpretive Data: GFR Population mean for , Non- Americans Ages 20-29 = 116 mL/min/1.73 sq.m. Ages 30-39 = 107 mL/min/1.73 sq.m. Ages 40-49 = 99 mL/min/1.73 sq.m. Ages 50-59 = 93 mL/min/1.73 sq.m. Ages 60-69 = 85 mL/min/1.73 sq.m. Ages 70+ = 75 mL/min/1.73 sq.m. Chronic Kidney Disease: Less than 60 mL/min/1.73 square meters End Stage Renal Disease: Less than 15 mL/min/1.73 square meters Globulin 3.8 G/dL Invalid Interpretation Code AO ADM SS Glucose [Mass/Vol] 99 mg/dL Normal 70 - 105 mg/dL AO ADM SS Glucose [Mass/Vol] 120 mg/dL Invalid Interpretation Code AO Chemistry S Comment on above: Interpretive Data: E stimated average glucose (eAG) is a calculated value from Hemoglobin A1C and is commercial representative of the average blood glucose level in the last 2-3 month period. Normal range: less than 114 mg/dL HbA1c (Bld) [Mass fraction] 5.8 % Normal 4.3 - 6.4 % AO ADM SS Potassium [Moles/Vol] 4.0 mmol/L Normal 3.5 - 5.1 mmol/L AO ADM SS Protein [Mass/Vol] 7.2 G/dL Normal 6.4 - 8.2 G/dL AO ADM SS Sodium [Moles/Vol] 140 mmol/L Normal 136 - 145 mmol/L AO ADM SS Urea nitrogen [Mass/Vol] 13 mg/dL Normal 7 - 18 mg/dL AO ADM SS Urea nitrogen/Creatinine [Mass ratio] 15 ratio Normal 7 - 27 ratio AO ADM SS LABORATORYOrdered By: Jr Fontaine on 05-14-2024 Cholesterol [Mass/Vol] 144 mg/dL Normal 0 - 200 mg/dL AO ADM SS Comment on above: Interpretive Data: C holesterol Reference Interval: Less than 200 Desirable 200-239 Borderline high risk 240 and above High risk Cholesterol in HDL [Mass/Vol] 24 mg/dL Low 40 - 60 mg/dL AO ADM SS Cholesterol in LDL [Mass/Vol] 72 mg/dL Normal 0 - 130 mg/dL AO ADM SS Triglyceride [Mass/Vol] 242 mg/dL High 0 - 150 mg/dL AO ADM SS Comment on above: Interpretive Data: T riglyceride Reference Interval: Less than 150 Normal 150-199 Borderline high risk 200-499 High risk 500 or higher Very high risk LIPIDon 05-14-2024 Cholesterol [Mass/Vol] 144 mg/dL Normal 0-200 [facility] Comment on above: Result Comment: Chol esterol Reference Interval: Less than 200 Desirable 200-239 Borderline high risk 240 and above High risk Performed By: #### G FR, LIPID, A1C, CMP ####[address] [place], [place] [address] Cholesterol in HDL [Mass/Vol] 24 mg/dL Low 40-60 [facility] Comment on above: Performed By: #### G FR, LIPID, A1C, CMP ####[address] [place], [place] [address] Cholesterol in LDL [Mass/Vol] 72 mg/dL Normal 0-130 [facility] Comment on above: Performed By: #### G FR, LIPID, A1C, CMP ####[address] [place], [place] [address] Triglyceride [Mass/Vol] 242 mg/dL High 0-150 [facility] Comment on above: Result Comment: Trig lyceride Reference Interval: Less than 150 Normal 150-199 Borderline high risk 200-499 High risk 500 or higher Very high risk Performed By: #### G FR, LIPID, A1C, CMP ####[address] [place], [place] [address] Final Surgical Pathology Rep [facility] 03-27-2024 Final Surgical Pathology Report . Pathology Reports Accession: Collected Date/Time: Received Date/Time: Pathologist: [id number] 03/25/2024 15:47 EDT 03/26/2024 07:38 EDT COREY WILBURN MD Final Surgical Pathology Report DIAGNOSIS: RIGHT ARM EXCISION: - GLOMANGIOMYOMA CLINICAL INFORMATION: SKIN LESION Procedure: EXCISION Preoperative diagnosis: SKIN LESION Postoperative diagnosis: SKIN LESION SPECIMEN: A RIGHT ARM GROSS DESCRIPTION: All parts labelled with patient name and [id number] Received in formalin labelled right arm excision Is a unoriented ellipse of skin measuring 1.5 x 0.4 and excised to depth of 1.2 cm. Excision margin inked black. Skin surface grossly unremarkable, located within the underlying soft tissue is a santillan firm well-circumscribed possible mass/lymph node measuring 0.6 x 0.6 x 0.6 cm. TS-2 Austin Somers, Pathologists' Passenger Service Agent (ASCP) Performed by [facility] MICROSCOPIC DESCRIPTION: The microscopic examination is performed, except in the case of Gross Only. Electronically Signed by Pathology Report verified by [facility] COREY WILBURN Sign out Date: 03/27/2024 16:10 Performing Lab: [facility], [address] [place] [address] Pathology Dept Disclaimer If ancillary studies were utilized, the following Laboratory Developed Test (LDT) disclaimer will apply: Under CLIA requirements, [facility]ology Laboratory is qualified to perform high complexity testing. For all ancillary stains, positive and negative controls stain appropriately. Performance characteristics of immunohistochemical and chromogenic in-situ hybridization tests have been determined by [facility]. These tests are used for clinical purposes, They should not be regarded as investigational or for research. Normal [facility] US SOFT TISSUE MASS OF RT AR M OR LEGon 02-18-2024 US SOFT TISSUE MASS OF RT ARM OR LEG ORIGINAL EXAMINATION: SOFT TISSUE ULTRASOUND OF THE RIGHT EXTREMITY02/16/2024 1:10 pm COMPARISON: None TECHNIQUE: Duplex ultrasound using B-mode/curry scaled imaging and Doppler spectral analysis and color flow was obtained of the right extremity. HISTORY: ORDERING SYSTEM PROVIDED HISTORY: Reason for Exam: right forearm mass, FINDINGS: The palpable lump in the right forearm near the elbow is a 13 x 9 x 5 mm ovoid well-circumscribed mass in the subcutaneous space. This has a hypoechoic periphery with a large prominent vascular echogenic hilum. No other sonographic abnormality is seen in this region. IMPRESSION: The palpable lump has the appearance of an enlarged lymph node. This is however an unusual location for lymphadenopathy and ultrasound cannot determine if this is a benign reactive lymph node or neoplastic. Interpreted by: Lucius Reveles MD Preliminary Report By: Lucius Reveles MD Electronically signed By Lucius Reveles MD Dictated Date: 02/18/2024 11:07:20 AM Prelim Date: 02/18/2024 11:09:23 AM Sign Date: 02/18/2024 11:09:23 AM Ordering Provider: ISADORA CORREA Normal [facility] TSHon 02-15-2024 TSH Qn 1.65 m[IU]/L Normal 0.36-3.74 [facility] Comment on above: Performed By: #### T ####[facility] [place] [address] .GFRon 02-12-2024 GFR 95 ml/min/1.73sqm Normal [facility] Comment on above: Result Comment: GFR Population mean for , Non- Americans Ages 20-29 = 116 mL/min/1.73 sq.m. Ages 30-39 = 107 mL/min/1.73 sq.m. Ages 40-49 = 99 mL/min/1.73 sq.m. Ages 50-59 = 93 mL/min/1.73 sq.m. Ages 60-69 = 85 mL/min/1.73 sq.m. Ages 70+ = 75 mL/min/1.73 sq.m. Chronic Kidney Disease: Less than 60 mL/min/1.73 square meters End Stage Renal Disease: Less than 15 mL/min/1.73 square meters Performed By: #### P SA, CMP, GFR, LIPID, A1C #### [address] [address] GFR Non- 78 ml/min/1.73sqm Normal [facility] Comment on above: Result Comment: GFR Population mean for , Non- Americans Ages 20-29 = 116 mL/min/1.73 sq.m. Ages 30-39 = 107 mL/min/1.73 sq.m. Ages 40-49 = 99 mL/min/1.73 sq.m. Ages 50-59 = 93 mL/min/1.73 sq.m. Ages 60-69 = 85 mL/min/1.73 sq.m. Ages 70+ = 75 mL/min/1.73 sq.m. Chronic Kidney Disease: Less than 60 mL/min/1.73 square meters End Stage Renal Disease: Less than 15 mL/min/1.73 square meters Performed By: #### P SA, CMP, GFR, LIPID, A1C #### [address] [address] A1Con 02-12-2024 Glucose [Mass/Vol] 131 mg/dL Normal [facility] Comment on above: Result Comment: Zahida mated Average Glucose calculated by equation ((28.7xA1C)-46.7) Estimated average glucose (eAG) is a calculated value from Hemoglobin A1C and is commercial representative of the average blood glucose level in the last 2-3 month period. Normal range: less than 114 mg/dL Performed By: #### P SA, CMP, GFR, LIPID, A1C #### [address] [address] HbA1c (Bld) [Mass fraction] 6.2 % Normal 4.3-6.4 [facility] Comment on above: Performed By: #### P SA, CMP, GFR, LIPID, A1C #### [address] [address] CMPon 02-12-2024 Albumin Level 3.3 G/dL Low 3.5-5.0 [facility] Comment on above: Performed By: #### P SA, CMP, GFR, LIPID, A1C #### [address] [address] Albumin/Globulin [Mass ratio] 0.9 {ratio} Low 1.1-2.5 [facility] Comment on above: Performed By: #### P SA, CMP, GFR, LIPID, A1C #### [address] [address] ALP [Catalytic activity/Vol] 74 U/L Normal 40-135 [facility] Comment on above: Performed By: #### P SA, CMP, GFR, LIPID, A1C #### [address] [address] ALT [Catalytic activity/Vol] 20 U/L Normal 16-63 [facility] Comment on above: Performed By: #### P SA, CMP, GFR, LIPID, A1C #### [address] [address] AST [Catalytic activity/Vol] 13 U/L Normal 10-40 [facility] Comment on above: Performed By: #### P SA, CMP, GFR, LIPID, A1C #### [address] [address] Bili Total 0.5 mg/dL Normal 0.2-1.0 [facility] Comment on above: Result Comment: Use of this assay is not recommended for patients undergoing treatment with eltrombopag due to the potential for falsely elevated results. Performed By: #### P SA, CMP, GFR, LIPID, A1C #### [address] [address] BUN/Creatinine Ratio 6 ratio Low 7-27 [facility] Comment on above: Performed By: #### P SA, CMP, GFR, LIPID, A1C #### [address] [address] Calcium [Mass/Vol] 8.5 mg/dL Normal 8.4-10.2 [facility] Comment on above: Performed By: #### P SA, CMP, GFR, LIPID, A1C #### [address] [address] Chloride [Moles/Vol] 100 mmol/L Normal 98-107 [facility] Comment on above: Performed By: #### P SA, CMP, GFR, LIPID, A1C #### [place] [address] CO2 [Moles/Vol] 34 mmol/L High 22-29 [facility] Comment on above: Performed By: #### P SA, CMP, GFR, LIPID, A1C #### [place] [id number] Creatinine [Mass/Vol] 1.00 mg/dL Normal 0.70-1.30 [facility] Comment on above: Result Comment: Test ing performed on Siemens Dimension EXL analyzer using a modified kinetic Ciera technique. Performed By: #### P SA, CMP, GFR, LIPID, A1C #### [address] [address] Electrolyte Balance 4.0 mEq/L Normal 4.0-15.0 [facility] Comment on above: Performed By: #### P SA, CMP, GFR, LIPID, A1C #### [address] [address] Globulin 3.8 G/dL Normal [facility] Comment on above: Performed By: #### P SA, CMP, GFR, LIPID, A1C #### [address] [address] Glucose [Mass/Vol] 80 mg/dL Normal 70-105 [facility] Comment on above: Performed By: #### P SA, CMP, GFR, LIPID, A1C #### [address] [place] [address] [place], [place] [address] Potassium [Moles/Vol] 4.3 mmol/L Normal 3.5-5.1 [facility] Comment on above: Performed By: #### P SA, CMP, GFR, LIPID, A1C #### [place] [address] [place], [place] [address] Sodium [Moles/Vol] 138 mmol/L Normal 136-145 [facility] Comment on above: Performed By: #### P SA, CMP, GFR, LIPID, A1C #### [address] [address] Total Protein 7.1 G/dL Normal 6.4-8.2 [facility] Comment on above: Performed By: #### P SA, CMP, GFR, LIPID, A1C #### [address] [address] Urea nitrogen [Mass/Vol] 6 mg/dL Low 7-18 [facility] Comment on above: Performed By: #### P SA, CMP, GFR, LIPID, A1C #### [address] [address] LABORATORYOrdered By: SYSTEM SYSTEM on 02-12-2024 Albumin BCP dye [Mass/Vol] 3.3 G/dL Low 3.5 - 5.0 G/dL AO ADM SS Albumin/Globulin [Mass ratio] 0.9 {ratio} Low 1.1 - 2.5 ratio AO ADM SS ALP [Catalytic activity/Vol] 74 U/L Normal 40 - 135 U/L AO ADM SS ALT With P-5'-P [Catalytic activity/Vol] 20 U/L Normal 16 - 63 U/L AO ADM SS AST With P-5'-P [Catalytic activity/Vol] 13 U/L Normal 10 - 40 U/L AO ADM SS Bilirubin [Mass/Vol] 0.5 mg/dL Normal 0.2 - 1 .0 mg/dL AO ADM SS Comment on above: Interpretive Data: U se of this assay is not recommended for patients undergoing treatment with eltrombopag due to the potential for falsely elevated results. Calcium [Mass/Vol] 8.5 mg/dL Normal 8.4 - 10. 2 mg/dL AO ADM SS Chloride [Moles/Vol] 100 mmol/L Normal 98 - 10 7 mmol/L AO ADM SS CO2 [Moles/Vol] 34 mmol/L High 22 - 29 mmol/L AO ADM SS Creatinine [Mass/Vol] 1.00 mg/dL Normal 0.70 - 1.30 mg/dL AO ADM SS Comment on above: Interpretive Data: T esting performed on Siemens Dimension EXL analyzer using a modified kinetic Ciera technique. Electrolyte Balance 4.0 mEq/L Normal 4.0 - 15 .0 mEq/L AO ADM SS GFR/1.73 sq M.predicted among blacks MDRD (S/P/Bld) [Vol rate/Area] 95 ml/min/1.73sqm Invalid Interpretation Code AO Chemistry S Comment on above: Interpretive Data: GFR Population mean for , Non- Americans Ages 20-29 = 116 mL/min/1.73 sq.m. Ages 30-39 = 107 mL/min/1.73 sq.m. Ages 40-49 = 99 mL/min/1.73 sq.m. Ages 50-59 = 93 mL/min/1.73 sq.m. Ages 60-69 = 85 mL/min/1.73 sq.m. Ages 70+ = 75 mL/min/1.73 sq.m. Chronic Kidney Disease: Less than 60 mL/min/1.73 square meters End Stage Renal Disease: Less than 15 mL/min/1.73 square meters GFR/1.73 sq M.predicted among non-blacks MDRD (S/P/Bld) [Vol rate/Area] 78 ml/min/1.73sqm Invalid Interpretation Code AO Chemistry S Comment on above: Interpretive Data: GFR Population mean for , Non- Americans Ages 20-29 = 116 mL/min/1.73 sq.m. Ages 30-39 = 107 mL/min/1.73 sq.m. Ages 40-49 = 99 mL/min/1.73 sq.m. Ages 50-59 = 93 mL/min/1.73 sq.m. Ages 60-69 = 85 mL/min/1.73 sq.m. Ages 70+ = 75 mL/min/1.73 sq.m. Chronic Kidney Disease: Less than 60 mL/min/1.73 square meters End Stage Renal Disease: Less than 15 mL/min/1.73 square meters Globulin 3.8 G/dL Invalid Interpretation Code AO ADM SS Glucose [Mass/Vol] 80 mg/dL Normal 70 - 105 mg/dL AO ADM SS Glucose [Mass/Vol] 131 mg/dL Invalid Interpretation Code AO Chemistry S Comment on above: Interpretive Data: E stimated average glucose (eAG) is a calculated value from Hemoglobin A1C and is commercial representative of the average blood glucose level in the last 2-3 month period. Normal range: less than 114 mg/dL HbA1c (Bld) [Mass fraction] 6.2 % Normal 4.3 - 6.4 % AO ADM SS Potassium [Moles/Vol] 4.3 mmol/L Normal 3.5 - 5.1 mmol/L AO ADM SS Prostate specific Ag [Mass/Vol] 0.25 ng/mL Normal 0.00 - 4.00 ng/mL AO ADM SS Protein [Mass/Vol] 7.1 G/dL Normal 6.4 - 8.2 G/dL AO ADM SS Sodium [Moles/Vol] 138 mmol/L Normal 136 - 145 mmol/L AO ADM SS Urea nitrogen [Mass/Vol] 6 mg/dL Low 7 - 18 mg/dL AO ADM SS Urea nitrogen/Creatinine [Mass ratio] 6 ratio Low 7 - 27 ratio AO ADM SS LABORATORYOrdered By: Jr Fontaine on 02-12-2024 Cholesterol [Mass/Vol] 117 mg/dL Normal 0 - 200 mg/dL AO ADM SS Comment on above: Interpretive Data: C holesterol Reference Interval: Less than 200 Desirable 200-239 Borderline high risk 240 and above High risk Cholesterol in HDL [Mass/Vol] 25 mg/dL Low 40 - 60 mg/dL AO ADM SS Cholesterol in LDL [Mass/Vol] 53 mg/dL Normal 0 - 130 mg/dL AO ADM SS Triglyceride [Mass/Vol] 196 mg/dL High 0 - 150 mg/dL AO ADM SS Comment on above: Interpretive Data: T riglyceride Reference Interval: Less than 150 Normal 150-199 Borderline high risk 200-499 High risk 500 or higher Very high risk LIPIDon 02-12-2024 Cholesterol [Mass/Vol] 117 mg/dL Normal 0-200 [facility] Comment on above: Result Comment: Chol esterol Reference Interval: Less than 200 Desirable 200-239 Borderline high risk 240 and above High risk Performed By: #### P SA, CMP, GFR, LIPID, A1C #### [place] [address] Cholesterol in HDL [Mass/Vol] 25 mg/dL Low 40-60 [facility] Comment on above: Performed By: #### P SA, CMP, GFR, LIPID, A1C #### [place] [id number] Cholesterol in LDL [Mass/Vol] 53 mg/dL Normal 0-130 [facility] Comment on above: Performed By: #### P SA, CMP, GFR, LIPID, A1C #### [place] [address] Triglyceride [Mass/Vol] 196 mg/dL High 0-150 [facility] Comment on above: Result Comment: Trig lyceride Reference Interval: Less than 150 Normal 150-199 Borderline high risk 200-499 High risk 500 or higher Very high risk Performed By: #### P SA, CMP, GFR, LIPID, A1C #### [place] [id number] PSAon 02-12-2024 Prostate Specific Antigen 0.25 ng/mL Normal 0.00-4.00 [facility] Comment on above: Performed By: #### P SA, CMP, GFR, LIPID, A1C #### [place] [id number] .Auto Diffon 02-01-2024 Basophil, Absolute 0.1 10 3/mcL Normal 0.0-0.3 [facility] ([place]) Comment on above: Performed By: #### A DIFF, TROPHS, GFR, BMP, MDW, CBC, PBNP, ANEU #### [place] [id number] Basophils/100 WBC (Bld) 0.8 % Normal 0.0-2.5 [facility] ([place]) Comment on above: Performed By: #### A DIFF, TROPHS, GFR, BMP, MDW, CBC, PBNP, ANEU #### [place] [address] [place], [place] [address] Eosinophil, Absolute 0.1 10 3/mcL Normal 0.0-0.7 [facility] ([place]) Comment on above: Performed By: #### A DIFF, TROPHS, GFR, BMP, MDW, CBC, PBNP, ANEU #### [address] [address] Eosinophils/100 WBC (Bld) 1.2 % Normal 0.0-6.0 [facility] ([place]) Comment on above: Performed By: #### A DIFF, TROPHS, GFR, BMP, MDW, CBC, PBNP, ANEU #### [address] [address] Lymphocyte, Absolute 1.4 10 3/mcL Normal 0.9-4.3 [facility] ([place] Comment on above: Performed By: #### A DIFF, TROPHS, GFR, BMP, MDW, CBC, PBNP, ANEU #### [address] [address] Lymphocytes/100 WBC (Bld) 19.9 % Low 20.0-40.0 [facility] ([place]) Comment on above: Performed By: #### A DIFF, TROPHS, GFR, BMP, MDW, CBC, PBNP, ANEU #### [address] [address] Monocyte, Absolute 0.7 10 3/mcL Normal 0.1-1.4 [facility] ([place] Comment on above: Performed By: #### A DIFF, TROPHS, GFR, BMP, MDW, CBC, PBNP, ANEU #### [address] [address] Monocytes/100 WBC (Bld) 9.4 % Normal 2.0-13.0 [facility] ([place] Comment on above: Performed By: #### A DIFF, TROPHS, GFR, BMP, MDW, CBC, PBNP, ANEU #### [address] [address] Neutrophils/100 WBC (Bld) 68.7 % Normal 50.0-75.0 [facility] ([place] Comment on above: Performed By: #### A DIFF, TROPHS, GFR, BMP, MDW, CBC, PBNP, ANEU #### [address] [address] .GFRon 02-01-2024 GFR >60 Normal [facility] ([place] Comment on above: Result Comment: GFR Population mean for , Non- Americans Ages 20-29 = 116 mL/min/1.73 sq.m. Ages 30-39 = 107 mL/min/1.73 sq.m. Ages 40-49 = 99 mL/min/1.73 sq.m. Ages 50-59 = 93 mL/min/1.73 sq.m. Ages 60-69 = 85 mL/min/1.73 sq.m. Ages 70+ = 75 mL/min/1.73 sq.m. Chronic Kidney Disease: Less than 60 mL/min/1.73 square meters End Stage Renal Disease: Less than 15 mL/min/1.73 square meters Performed By: #### A DIFF, TROPHS, GFR, BMP, MDW, CBC, PBNP, ANEU #### [address] [address] GFR Non- >60 Normal [facility] ([place] Comment on above: Result Comment: GFR Population mean for , Non- Americans Ages 20-29 = 116 mL/min/1.73 sq.m. Ages 30-39 = 107 mL/min/1.73 sq.m. Ages 40-49 = 99 mL/min/1.73 sq.m. Ages 50-59 = 93 mL/min/1.73 sq.m. Ages 60-69 = 85 mL/min/1.73 sq.m. Ages 70+ = 75 mL/min/1.73 sq.m. Chronic Kidney Disease: Less than 60 mL/min/1.73 square meters End Stage Renal Disease: Less than 15 mL/min/1.73 square meters Performed By: #### A DIFF, TROPHS, GFR, BMP, MDW, CBC, PBNP, ANEU #### [address] [address] .NEUABSon 02-01-2024 Neutrophil, Absolute 4.8 10 3/mcL Normal 2.3-8.1 [facility] ([place] Comment on above: Performed By: #### A DIFF, TROPHS, GFR, BMP, MDW, CBC, PBNP, ANEU #### [address] [address] APTTon 02-01-2024 aPTT Coag (Bld) [Time] 47.1 s High 25.0-35.0 [facility] ([place] Comment on above: Result Comment: For Heparin anticoagulation therapy, the recommended therapeutic range is: 54-77 seconds (APTT Correlation with Anti-Xa therapeutic range of 0.3-0.7 units/ml). PLEASE REFERENCE THE PHARMACY PROTOCOL FOR DOSING. Performed By: #### A DIFF, TROPHS, GFR, BMP, MDW, CBC, PBNP, ANEU #### [address] [address] aPTT Coag (Bld) [Time] 46.1 s High 25.0-35.0 [facility] ([place] Comment on above: Result Comment: For Heparin anticoagulation therapy, the recommended therapeutic range is: 54-77 seconds (APTT Correlation with Anti-Xa therapeutic range of 0.3-0.7 units/ml). PLEASE REFERENCE THE PHARMACY PROTOCOL FOR DOSING. Performed By: #### A DIFF, TROPHS, GFR, BMP, MDW, CBC, PBNP, ANEU #### [address] [address] BMPon 02-01-2024 BUN/Creatinine Ratio 14.8 ratio Normal 10.0-22.0 [facility] ([place] Comment on above: Performed By: #### A DIFF, TROPHS, GFR, BMP, MDW, CBC, PBNP, ANEU #### [address] [address] Calcium [Mass/Vol] 8.8 mg/dL Normal 8.7-10.4 [facility] ([place] Comment on above: Performed By: #### A DIFF, TROPHS, GFR, BMP, MDW, CBC, PBNP, ANEU #### [address] [address] Chloride [Moles/Vol] 100 mmol/L Normal 98-110 [facility] ([place] Comment on above: Performed By: #### A DIFF, TROPHS, GFR, BMP, MDW, CBC, PBNP, ANEU #### [address] [address] CO2 [Moles/Vol] 32 mmol/L Normal 22-32 [facility] ([place] Comment on above: Performed By: #### A DIFF, TROPHS, GFR, BMP, MDW, CBC, PBNP, ANEU #### [address] [address] Creatinine [Mass/Vol] 1.15 mg/dL Normal 0.60-1.40 [facility] ([place]) Comment on above: Result Comment: Test ing performed on Tactilize analyzer using enzymatic creatinine methodology. Performed By: #### A DIFF, TROPHS, GFR, BMP, MDW, CBC, PBNP, ANEU #### [address] [address] Electrolyte Balance 5.0 mEq/L Normal 4.0-15.0 [facility] ([place]) Comment on above: Performed By: #### A DIFF, TROPHS, GFR, BMP, MDW, CBC, PBNP, ANEU #### [address] [address] Glucose [Mass/Vol] 124 mg/dL High 70-110 [facility] [place] Comment on above: Performed By: #### A DIFF, TROPHS, GFR, BMP, MDW, CBC, PBNP, ANEU #### [address] [address] Potassium [Moles/Vol] 3.4 mmol/L Low 3.5-5.0 [facility] ([place]) Comment on above: Performed By: #### A DIFF, TROPHS, GFR, BMP, MDW, CBC, PBNP, ANEU #### [address] [address] Sodium [Moles/Vol] 137 mmol/L Normal 136-145 [facility] [place] Comment on above: Performed By: #### A DIFF, TROPHS, GFR, BMP, MDW, CBC, PBNP, ANEU #### [address] [address] Urea nitrogen [Mass/Vol] 17.0 mg/dL Normal 8.0-22.0 [facility] ([place] Comment on above: Performed By: #### A DIFF, TROPHS, GFR, BMP, MDW, CBC, PBNP, ANEU #### [address] [address] CBCon 02-01-2024 Erythrocyte distribution width (RBC) [Ratio] 16.2 % High 11.5-15.5 [facility] ([place] Comment on above: Performed By: #### A DIFF, TROPHS, GFR, BMP, MDW, CBC, PBNP, ANEU #### [place] [id number] Hematocrit (Bld) [Volume fraction] 40.5 % Normal 40.0-52.0 [facility] ([place] Comment on above: Performed By: #### A DIFF, TROPHS, GFR, BMP, MDW, CBC, PBNP, ANEU #### [address] [address] Hgb 13.0 G/dL Normal 13.0-17.5 [facility] ([place] Comment on above: Performed By: #### A DIFF, TROPHS, GFR, BMP, MDW, CBC, PBNP, ANEU #### [address] [address] MCH (RBC) [Entitic mass] 26.0 pg Low 27.0-33.0 [facility] ([place] Comment on above: Performed By: #### A DIFF, TROPHS, GFR, BMP, MDW, CBC, PBNP, ANEU #### [address] [address] MCHC 32.2 G/dL Normal 32.0-36.0 [facility] ([place] Comment on above: Performed By: #### A DIFF, TROPHS, GFR, BMP, MDW, CBC, PBNP, ANEU #### [address] [address] MCV (RBC) [Entitic vol] 80.6 fL Low 81.0-100.0 [facility] ([place] Comment on above: Performed By: #### A DIFF, TROPHS, GFR, BMP, MDW, CBC, PBNP, ANEU #### [address] [address] Platelet 161 10 3/mcL Normal 150-450 [facility] ([place] Comment on above: Performed By: #### A DIFF, TROPHS, GFR, BMP, MDW, CBC, PBNP, ANEU #### [address] [address] Platelet mean volume (Bld) [Entitic vol] 6.8 fL Normal 6.4-10.5 [facility] ([place] Comment on above: Performed By: #### A DIFF, TROPHS, GFR, BMP, MDW, CBC, PBNP, ANEU #### [address] [address] RBC 5.02 10 6/mcL Normal 4.50-6.00 [facility] ([place] Comment on above: Performed By: #### A DIFF, TROPHS, GFR, BMP, MDW, CBC, PBNP, ANEU #### [address] [address] WBC 6.9 10 3/mcL Normal 4.5-10.8 [facility] ([place] Comment on above: Performed By: #### A DIFF, TROPHS, GFR, BMP, MDW, CBC, PBNP, ANEU #### [address] [address] LABORATORYOrdered By: SYSTEM SYSTEM on 02-01-2024 aPTT Coag (Bld) [Time] 47.1 s High 25.0 - 35.0 seconds AH [facility] SS Comment on above: Interpretive Data: F or Heparin anticoagulation therapy, the recommended therapeutic range is: 54-77 seconds (APTT Correlation with Anti-Xa therapeutic range of 0.3-0.7 units/ml). PLEASE REFERENCE THE PHARMACY PROTOCOL FOR DOSING. aPTT Coag (Bld) [Time] 46.1 s High 25.0 - 35.0 seconds [facility] SS Comment on above: Interpretive Data: F or Heparin anticoagulation therapy, the recommended therapeutic range is: 54-77 seconds (APTT Correlation with Anti-Xa therapeutic range of 0.3-0.7 units/ml). PLEASE REFERENCE THE PHARMACY PROTOCOL FOR DOSING. Basophils (Bld) [#/Vol] 0.1 103/mcL Normal 0.0 - 0.3 10^3/mcL Workflow SS Basophils/100 WBC (Bld) 0.8 % Normal 0.0 - 2.5 % Workflow SS Calcium [Mass/Vol] 8.8 mg/dL Normal 8.7 - 10. 4 mg/dL ADM SS Chloride [Moles/Vol] 100 mmol/L Normal 98 - 11 0 mEq/L ADM SS CO2 [Moles/Vol] 32 mmol/L Normal 22 - 32 mEq/L ADM SS Creatinine [Mass/Vol] 1.15 mg/dL Normal 0.60 - 1.40 mg/dL ADM Comment on above: Interpretive Data: T esting performed on Tactilize analyzer using enzymatic creatinine methodology. Electrolyte Balance 5.0 mEq/L Normal 4.0 - 15 .0 mEq/L ADM SS Eosinophils (Bld) [#/Vol] 0.1 103/mcL Normal 0.0 - 0.7 10^3/mcL Workflow SS Eosinophils/100 WBC (Bld) 1.2 % Normal 0.0 - 6.0 % Workflow SS Erythrocyte distribution width (RBC) [Ratio] 16.2 % High 11.5 - 15.5 % Workflow SS GFR/1.73 sq M.predicted among blacks MDRD (S/P/Bld) [Vol rate/Area] ml/min/1.73sqm Invalid Interpretation Code ADM SS Comment on above: Interpretive Data: GFR Population mean for , Non- Americans Ages 20-29 = 116 mL/min/1.73 sq.m. Ages 30-39 = 107 mL/min/1.73 sq.m. Ages 40-49 = 99 mL/min/1.73 sq.m. Ages 50-59 = 93 mL/min/1.73 sq.m. Ages 60-69 = 85 mL/min/1.73 sq.m. Ages 70+ = 75 mL/min/1.73 sq.m. Chronic Kidney Disease: Less than 60 mL/min/1.73 square meters End Stage Renal Disease: Less than 15 mL/min/1.73 square meters GFR/1.73 sq M.predicted among non-blacks MDRD (S/P/Bld) [Vol rate/Area] ml/min/1.73sqm Invalid Interpretation Code ADM SS Comment on above: Interpretive Data: GFR Population mean for , Non- Americans Ages 20-29 = 116 mL/min/1.73 sq.m. Ages 30-39 = 107 mL/min/1.73 sq.m. Ages 40-49 = 99 mL/min/1.73 sq.m. Ages 50-59 = 93 mL/min/1.73 sq.m. Ages 60-69 = 85 mL/min/1.73 sq.m. Ages 70+ = 75 mL/min/1.73 sq.m. Chronic Kidney Disease: Less than 60 mL/min/1.73 square meters End Stage Renal Disease: Less than 15 mL/min/1.73 square meters Glucose [Mass/Vol] 124 mg/dL High 70 - 110 mg/dL ADM SS Hematocrit (Bld) [Volume fraction] 40.5 % Normal 40.0 - 52.0 % AH Workflow SS Hemoglobin (Bld) [Mass/Vol] 13.0 G/dL Normal 13.0 - 17.5 G/dL AH Workflow SS Lymphocytes (Bld) [#/Vol] 1.4 103/mcL Normal 0.9 - 4.3 10^3/mcL AH Workflow SS Lymphocytes/100 WBC (Bld) 19.9 % Low 20.0 - 40.0 % AH Workflow SS Magnesium [Mass/Vol] 2.2 mg/dL Normal 1.6 - 2 .4 mg/dL ADM SS MCH (RBC) [Entitic mass] 26.0 pg Low 27.0 - 33.0 pg AH Workflow SS MCHC 32.2 G/dL Normal 32.0 - 36.0 G/dL Workflow SS MCV (RBC) [Entitic vol] 80.6 fL Low 81.0 - 100.0 fL AH Workflow SS Monocytes (Bld) [#/Vol] 0.7 103/mcL Normal 0.1 - 1.4 10^3/mcL AH Workflow SS Monocytes/100 WBC (Bld) 9.4 % Normal 2.0 - 13.0 % AH Workflow SS Neutrophils (Bld) [#/Vol] 4.8 103/mcL Normal 2.3 - 8.1 10^3/mcL AH Workflow SS Neutrophils/100 WBC (Bld) 68.7 % Normal 50.0 - 75.0 % AH Workflow SS Platelet mean volume (Bld) [Entitic vol] 6.8 fL Normal 6.4 - 10.5 fL AH Workflow SS Platelets (Bld) [#/Vol] 161 103/mcL Normal 150 - 450 10^3/mcL AH Workflow SS Potassium [Moles/Vol] 3.4 mmol/L Low 3.5 - 5.0 mEq/L ADM SS RBC (Bld) [#/Vol] 5.02 106/mcL Normal 4.50 - 6.0 0 10^6/mcL AH Workflow SS Sodium [Moles/Vol] 137 mmol/L Normal 136 - 145 mEq/L ADM SS Urea nitrogen [Mass/Vol] 17.0 mg/dL Normal 8.0 - 22.0 mg/dL AH ADM SS Urea nitrogen/Creatinine [Mass ratio] 14.8 ratio Normal 10.0 - 22.0 ratio AH ADM SS WBC (Bld) [#/Vol] 6.9 103/mcL Normal 4.5 - 10.8 10^3/mcL Workflow SS MGon 02-01-2024 Magnesium [Mass/Vol] 2.2 mg/dL Normal 1.6-2.4 [facility] ([place]) Comment on above: Performed By: #### A DIFF, TROPHS, GFR, BMP, MDW, CBC, PBNP, ANEU #### [address] [address] .Auto Diffon 01-31-2024 Basophil, Absolute 0.1 10 3/mcL Normal 0.0-0.3 [facility] ([place]) Comment on above: Performed By: #### A DIFF, TROPHS, GFR, BMP, MDW, CBC, PBNP, ANEU #### [place] [address] [address] Basophils/100 WBC (Bld) 1.0 % Normal 0.0-2.5 [facility] ([place]) Comment on above: Performed By: #### A DIFF, TROPHS, GFR, BMP, MDW, CBC, PBNP, ANEU #### [address] [address] Eosinophil, Absolute 0.1 10 3/mcL Normal 0.0-0.7 [facility] ([place]) Comment on above: Performed By: #### A DIFF, TROPHS, GFR, BMP, MDW, CBC, PBNP, ANEU #### [address] [address] Eosinophils/100 WBC (Bld) 1.1 % Normal 0.0-6.0 [facility] ([place] Comment on above: Performed By: #### A DIFF, TROPHS, GFR, BMP, MDW, CBC, PBNP, ANEU #### [address] [address] Lymphocyte, Absolute 3.0 10 3/mcL Normal 0.9-4.3 [facility] ([place] Comment on above: Performed By: #### A DIFF, TROPHS, GFR, BMP, MDW, CBC, PBNP, ANEU #### [address] [address] Lymphocytes/100 WBC (Bld) 22.7 % Normal 20.0-40.0 [facility] ([place] Comment on above: Performed By: #### A DIFF, TROPHS, GFR, BMP, MDW, CBC, PBNP, ANEU #### [address] [address] Monocyte, Absolute 1.4 10 3/mcL Normal 0.1-1.4 [facility] ([place] Comment on above: Performed By: #### A DIFF, TROPHS, GFR, BMP, MDW, CBC, PBNP, ANEU #### [address] [address] Monocytes/100 WBC (Bld) 11.0 % Normal 2.0-13.0 [facility] ([place] Comment on above: Performed By: #### A DIFF, TROPHS, GFR, BMP, MDW, CBC, PBNP, ANEU #### [address] [address] Neutrophils/100 WBC (Bld) 64.2 % Normal 50.0-75.0 [facility] ([place] Comment on above: Performed By: #### A DIFF, TROPHS, GFR, BMP, MDW, CBC, PBNP, ANEU #### [address] [address] .GFRon 01-31-2024 GFR 46 ml/min/1.73sqm Normal [facility] ([place] Comment on above: Result Comment: GFR Population mean for , Non- Americans Ages 20-29 = 116 mL/min/1.73 sq.m. Ages 30-39 = 107 mL/min/1.73 sq.m. Ages 40-49 = 99 mL/min/1.73 sq.m. Ages 50-59 = 93 mL/min/1.73 sq.m. Ages 60-69 = 85 mL/min/1.73 sq.m. Ages 70+ = 75 mL/min/1.73 sq.m. Chronic Kidney Disease: Less than 60 mL/min/1.73 square meters End Stage Renal Disease: Less than 15 mL/min/1.73 square meters Performed By: #### A DIFF, TROPHS, GFR, BMP, MDW, CBC, PBNP, ANEU #### [address] [address] GFR Non- 38 ml/min/1.73sqm Normal [facility] ([place] Comment on above: Result Comment: GFR Population mean for , Non- Americans Ages 20-29 = 116 mL/min/1.73 sq.m. Ages 30-39 = 107 mL/min/1.73 sq.m. Ages 40-49 = 99 mL/min/1.73 sq.m. Ages 50-59 = 93 mL/min/1.73 sq.m. Ages 60-69 = 85 mL/min/1.73 sq.m. Ages 70+ = 75 mL/min/1.73 sq.m. Chronic Kidney Disease: Less than 60 mL/min/1.73 square meters End Stage Renal Disease: Less than 15 mL/min/1.73 square meters Performed By: #### A DIFF, TROPHS, GFR, BMP, MDW, CBC, PBNP, ANEU #### [address] [address] .NEUABSon 01-31-2024 Neutrophil, Absolute 8.5 10 3/mcL High 2.3-8.1 [facility] ([place]) Comment on above: Performed By: #### A DIFF, TROPHS, GFR, BMP, MDW, CBC, PBNP, ANEU #### [address] [address] APTTon 01-31-2024 aPTT Coag (Bld) [Time] 34.5 s Normal 25.0-35.0 [facility] ([place]) Comment on above: Result Comment: For Heparin anticoagulation therapy, the recommended therapeutic range is: 54-77 seconds (APTT Correlation with Anti-Xa therapeutic range of 0.3-0.7 units/ml). PLEASE REFERENCE THE PHARMACY PROTOCOL FOR DOSING. Performed By: #### A DIFF, TROPHS, GFR, BMP, MDW, CBC, PBNP, ANEU #### [address] [address] aPTT Coag (Bld) [Time] 33.9 s Normal 25.0-35.0 [facility] ([place] Comment on above: Result Comment: For Heparin anticoagulation therapy, the recommended therapeutic range is: 54-77 seconds (APTT Correlation with Anti-Xa therapeutic range of 0.3-0.7 units/ml). PLEASE REFERENCE THE PHARMACY PROTOCOL FOR DOSING. Performed By: #### A DIFF, TROPHS, GFR, BMP, MDW, CBC, PBNP, ANEU #### [address] [address] aPTT Coag (Bld) [Time] 26.2 s Normal 25.0-35.0 [facility] ([place] Comment on above: Result Comment: For Heparin anticoagulation therapy, the recommended therapeutic range is: 54-77 seconds (APTT Correlation with Anti-Xa therapeutic range of 0.3-0.7 units/ml). PLEASE REFERENCE THE PHARMACY PROTOCOL FOR DOSING. Performed By: #### A DIFF, TROPHS, GFR, BMP, MDW, CBC, PBNP, ANEU #### [address] [address] CAIONon 01-31-2024 Calcium Ionized 1.07 mmol/L Low 1.12-1.32 [facility] ([place] Comment on above: Performed By: #### T ROPHS, CMP, CAION, LAC, CBC, ADIFF, GFR, PHOS, MG, ANEU #### [place] [address] CBCon 01-31-2024 Erythrocyte distribution width (RBC) [Ratio] 16.3 % High 11.5-15.5 [facility] ([place] Comment on above: Performed By: #### A DIFF, TROPHS, GFR, BMP, MDW, CBC, PBNP, ANEU #### [address] [address] Hematocrit (Bld) [Volume fraction] 42.8 % Normal 40.0-52.0 [facility] ([place]) Comment on above: Performed By: #### A DIFF, TROPHS, GFR, BMP, MDW, CBC, PBNP, ANEU #### [address] [address] Hgb 14.0 G/dL Normal 13.0-17.5 [facility] ([place] Comment on above: Performed By: #### A DIFF, TROPHS, GFR, BMP, MDW, CBC, PBNP, ANEU #### [address] [address] MCH (RBC) [Entitic mass] 25.9 pg Low 27.0-33.0 [facility] ([place] Comment on above: Performed By: #### A DIFF, TROPHS, GFR, BMP, MDW, CBC, PBNP, ANEU #### [address] [address] MCHC 32.6 G/dL Normal 32.0-36.0 [facility] ([place] Comment on above: Performed By: #### A DIFF, TROPHS, GFR, BMP, MDW, CBC, PBNP, ANEU #### [address] [address] MCV (RBC) [Entitic vol] 79.5 fL Low 81.0-100.0 [facility] ([place] Comment on above: Performed By: #### A DIFF, TROPHS, GFR, BMP, MDW, CBC, PBNP, ANEU #### [address] [address] Platelet 270 10 3/mcL Normal 150-450 [facility] ([place] Comment on above: Performed By: #### A DIFF, TROPHS, GFR, BMP, MDW, CBC, PBNP, ANEU #### [address] [address] Platelet mean volume (Bld) [Entitic vol] 7.0 fL Normal 6.4-10.5 [facility] ([place] Comment on above: Performed By: #### A DIFF, TROPHS, GFR, BMP, MDW, CBC, PBNP, ANEU #### [address] [address] RBC 5.39 10 6/mcL Normal 4.50-6.00 [facility] ([place] Comment on above: Performed By: #### A DIFF, TROPHS, GFR, BMP, MDW, CBC, PBNP, ANEU #### [address] [address] WBC 13.2 10 3/mcL High 4.5-10.8 [facility] ([place] Comment on above: Performed By: #### A DIFF, TROPHS, GFR, BMP, MDW, CBC, PBNP, ANEU #### [address] [address] CMPon 01-31-2024 Albumin Level 3.0 G/dL Low 3.2-4.8 [facility] ([place] Comment on above: Performed By: #### A DIFF, TROPHS, GFR, BMP, MDW, CBC, PBNP, ANEU #### [address] [address] Albumin/Globulin [Mass ratio] 0.8 {ratio} Low 0.9-1.6 [facility] ([place]) Comment on above: Performed By: #### A DIFF, TROPHS, GFR, BMP, MDW, CBC, PBNP, ANEU #### [place] [id number] ALP [Catalytic activity/Vol] 77 U/L Normal 38-126 [facility] ([place] Comment on above: Performed By: #### A DIFF, TROPHS, GFR, BMP, MDW, CBC, PBNP, ANEU #### [place] [address] ALT/SGPT <8 Low 12-55 [facility] ([place] Comment on above: Performed By: #### A DIFF, TROPHS, GFR, BMP, MDW, CBC, PBNP, ANEU #### [place] [address] AST [Catalytic activity/Vol] 12 U/L Normal 8-34 [facility] ([place] Comment on above: Performed By: #### A DIFF, TROPHS, GFR, BMP, MDW, CBC, PBNP, ANEU #### [place] [address] Bili Total 0.40 mg/dL Normal 0.20-1.20 [facility] ([place]) Comment on above: Result Comment: Use of this assay is not recommended for patients undergoing treatment with eltrombopag due to the potential for falsely elevated results. Performed By: #### A DIFF, TROPHS, GFR, BMP, MDW, CBC, PBNP, ANEU #### [place] [address] BUN/Creatinine Ratio 11.2 ratio Normal 10.0-22.0 [facility] ([place]) Comment on above: Performed By: #### A DIFF, TROPHS, GFR, BMP, MDW, CBC, PBNP, ANEU #### [place] [address] Calcium [Mass/Vol] 8.8 mg/dL Normal 8.7-10.4 [facility] [place] Comment on above: Performed By: #### A DIFF, TROPHS, GFR, BMP, MDW, CBC, PBNP, ANEU #### [address] [address] Chloride [Moles/Vol] 100 mmol/L Normal 98-110 [facility] ([place] Comment on above: Performed By: #### A DIFF, TROPHS, GFR, BMP, MDW, CBC, PBNP, ANEU #### [address] [address] CO2 [Moles/Vol] 29 mmol/L Normal 22-32 [facility] ([place] Comment on above: Performed By: #### A DIFF, TROPHS, GFR, BMP, MDW, CBC, PBNP, ANEU #### [address] [address] Creatinine [Mass/Vol] 1.87 mg/dL High 0.60-1.40 [facility] ([place]) Comment on above: Result Comment: Test ing performed on Tact[employer] analyzer using enzymatic creatinine methodology. Performed By: #### A DIFF, TROPHS, GFR, BMP, MDW, CBC, PBNP, ANEU #### [address] [address] Electrolyte Balance 8.0 mEq/L Normal 4.0-15.0 [facility] ([place]) Comment on above: Performed By: #### A DIFF, TROPHS, GFR, BMP, MDW, CBC, PBNP, ANEU #### [address] [address] Globulin 3.7 G/dL Normal 1.5-3.8 [facility] ([place] Comment on above: Performed By: #### A DIFF, TROPHS, GFR, BMP, MDW, CBC, PBNP, ANEU #### [address] [address] Glucose [Mass/Vol] 133 mg/dL High 70-110 [facility] [place] Comment [place] above: Performed By: #### A DIFF, TROPHS, GFR, BMP, MDW, CBC, PBNP, ANEU #### [address] [address] Potassium [Moles/Vol] 3.6 mmol/L Normal 3.5-5.0 [facility] ([place] Comment on above: Performed By: #### A DIFF, TROPHS, GFR, BMP, MDW, CBC, PBNP, ANEU #### [address] [address] Sodium [Moles/Vol] 137 mmol/L Normal 136-145 [facility]) Comment on above: Performed By: #### A DIFF, TROPHS, GFR, BMP, MDW, CBC, PBNP, ANEU #### [address] [address] Total Protein 6.7 G/dL Normal 5.7-8.2 [facility]) Comment on above: Result Comment: No te - New Reference Range in effect 19 Performed By: #### A DIFF, TROPHS, GFR, BMP, MDW, CBC, PBNP, ANEU #### [address] [address] Urea nitrogen [Mass/Vol] 21.0 mg/dL Normal 8.0-22.0 [facility] ([place] Comment on above: Performed By: #### A DIFF, TROPHS, GFR, BMP, MDW, CBC, PBNP, ANEU #### [address] [address] CVFLURVon 01-31-2024 FLU A PCR Negative Normal Negative [facility] ([place] Comment on above: Result Comment: [place] [id number] Performed By: #### A DIFF, TROPHS, GFR, BMP, MDW, CBC, PBNP, ANEU #### [address] [address] FLU B PCR Negative Normal Negative [facility] ([place] Comment on above: Result Comment: Note s [id number] Performed By: #### A DIFF, TROPHS, GFR, BMP, MDW, CBC, PBNP, ANEU #### [place] [address] [place], [place] [address] RSV PCR Negative Normal Negative [facility] ([place] Comment on above: Result Comment: [place] [id number] Performed By: #### A DIFF, TROPHS, GFR, BMP, MDW, CBC, PBNP, ANEU #### [place] [address] [place], [place] [address] SARS-CoV-2 (COVID-19) RNA ROSE+probe Ql (Unsp spec) Negative Normal Negative [facility] ([place]) Comment on above: Result Comment: Note s [id number] This test has been authorized by FDA under an EUA for use by authorized laboratories and has not been FDA cleared or approved. Results from the Xpert Xpress SARS-CoV-2/Flu/RSV or Xpert Xpress SARS-CoV-2 only test should be correlated with the clinical history, epidemiological data, and other data available to the clinician evaluating the patient. Performance of the Xpert Xpress SARS-CoV-2/Flu/RSV or Xpert Xpress SARS-CoV-2 only test has only been established in nasopharyngeal swab specimens. Erroneous test results might occur from improper specimen collection; failure to follow the recommended sample collection, handling, and storage procedures; technical error; or sample mix-up.False negative results may occur if virus is present at levels below the analytical limit of detection. Viral nucleic acid may persist in vivo, independent of virus viability. Detection of analyte target(s) does not imply that the corresponding virus(es) are infectious or are the causative agents for clinical symptoms.Recent patient exposure to FluMist or other live attenuated influenza vaccines may cause inaccurate positive results. Performed By: #### A DIFF, TROPHS, GFR, BMP, MDW, CBC, PBNP, ANEU #### [place] [address] [place], [place] [address] LABORATORYOrdered By: SYSTEM SYSTEM on 01-31-2024 aPTT Coag (Bld) [Time] 34.5 s Normal 25.0 - 35.0 seconds AH [facility] SS Comment on above: Interpretive Data: F or Heparin anticoagulation therapy, the recommended therapeutic range is: 54-77 seconds (APTT Correlation with Anti-Xa therapeutic range of 0.3-0.7 units/ml). PLEASE REFERENCE THE PHARMACY PROTOCOL FOR DOSING. Lactate [Moles/Vol] 1.2 mmol/L Normal 0.5 - 2. 2 mmol/L ADM SS Comment on above: Result Comment: Spec imen hemolyzed. Results may be affected. Albumin BCP dye [Mass/Vol] 3.0 G/dL Low 3.2 - 4.8 G/dL ADM SS Albumin/Globulin [Mass ratio] 0.8 {ratio} Low 0.9 - 1.6 ratio ADM SS ALP [Catalytic activity/Vol] 77 U/L Normal 38 - 126 U/L ADM SS ALT No additional P-5'-P [Catalytic activity/Vol] U/L 1 Low 12 - 55 U/L ADM SS AST [Catalytic activity/Vol] 12 U/L Normal 8 - 34 U/L ADM SS Basophils (Bld) [#/Vol] 0.1 103/mcL Normal 0.0 - 0.3 10^3/mcL Workflow SS Basophils/100 WBC (Bld) 1.0 % Normal 0.0 - 2.5 % Workflow SS Bilirubin [Mass/Vol] 0.40 mg/dL Normal 0.20 - 1.20 mg/dL ADM SS Comment on above: Interpretive Data: U se of this assay is not recommended for patients undergoing treatment with eltrombopag due to the potential for falsely elevated results. Calcium [Mass/Vol] 8.8 mg/dL Normal 8.7 - 10. 4 mg/dL ADM SS Chloride [Moles/Vol] 100 mmol/L Normal 98 - 11 0 mEq/L ADM SS CO2 [Moles/Vol] 29 mmol/L Normal 22 - 32 mEq/L ADM SS Creatinine [Mass/Vol] 1.87 mg/dL High 0.60 - 1.40 mg/dL ADM SS Comment on above: Interpretive Data: T esting performed on Tactilize analyzer using enzymatic creatinine methodology. Electrolyte Balance 8.0 mEq/L Normal 4.0 - 15 .0 mEq/L ADM SS Eosinophils (Bld) [#/Vol] 0.1 103/mcL Normal 0.0 - 0.7 10^3/mcL Workflow SS Eosinophils/100 WBC (Bld) 1.1 % Normal 0.0 - 6.0 % Workflow SS Erythrocyte distribution width (RBC) [Ratio] 16.3 % High 11.5 - 15.5 % Workflow SS GFR/1.73 sq M.predicted among blacks MDRD (S/P/Bld) [Vol rate/Area] 46 ml/min/1.73sqm Invalid Interpretation Code [facility] Comment on above: Interpretive Data: GFR Population mean for , Non- Americans Ages 20-29 = 116 mL/min/1.73 sq.m. Ages 30-39 = 107 mL/min/1.73 sq.m. Ages 40-49 = 99 mL/min/1.73 sq.m. Ages 50-59 = 93 mL/min/1.73 sq.m. Ages 60-69 = 85 mL/min/1.73 sq.m. Ages 70+ = 75 mL/min/1.73 sq.m. Chronic Kidney Disease: Less than 60 mL/min/1.73 square meters End Stage Renal Disease: Less than 15 mL/min/1.73 square meters GFR/1.73 sq M.predicted among non-blacks MDRD (S/P/Bld) [Vol rate/Area] 38 ml/min/1.73sqm Invalid Interpretation Code [facility] Comment on above: Interpretive Data: GFR Population mean for , Non- Americans Ages 20-29 = 116 mL/min/1.73 sq.m. Ages 30-39 = 107 mL/min/1.73 sq.m. Ages 40-49 = 99 mL/min/1.73 sq.m. Ages 50-59 = 93 mL/min/1.73 sq.m. Ages 60-69 = 85 mL/min/1.73 sq.m. Ages 70+ = 75 mL/min/1.73 sq.m. Chronic Kidney Disease: Less than 60 mL/min/1.73 square meters End Stage Renal Disease: Less than 15 mL/min/1.73 square meters Globulin 3.7 G/dL Normal 1.5 - 3.8 G/dL ADM Glucose [Mass/Vol] 133 mg/dL High 70 - 110 mg/dL ADM Hematocrit (Bld) [Volume fraction] 42.8 % Normal 40.0 - 52.0 % Workflow Hemoglobin (Bld) [Mass/Vol] 14.0 G/dL Normal 13.0 - 17.5 G/dL AH Workflow SS Lymphocytes (Bld) [#/Vol] 3.0 103/mcL Normal 0.9 - 4.3 10^3/mcL AH Workflow SS Lymphocytes/100 WBC (Bld) 22.7 % Normal 20.0 - 40.0 % AH Workflow SS Magnesium [Mass/Vol] 1.5 mg/dL Low 1.6 - 2 .4 mg/dL ADM SS MCH (RBC) [Entitic mass] 25.9 pg Low 27.0 - 33.0 pg AH Workflow SS MCHC 32.6 G/dL Normal 32.0 - 36.0 G/dL AH Workflow SS MCV (RBC) [Entitic vol] 79.5 fL Low 81.0 - 100.0 fL AH Workflow SS Monocytes (Bld) [#/Vol] 1.4 103/mcL Normal 0.1 - 1.4 10^3/mcL AH Workflow SS Monocytes/100 WBC (Bld) 11.0 % Normal 2.0 - 13.0 % AH Workflow SS Neutrophils (Bld) [#/Vol] 8.5 103/mcL High 2.3 - 8.1 10^3/mcL AH Workflow SS Neutrophils/100 WBC (Bld) 64.2 % Normal 50.0 - 75.0 % Workflow SS Phosphate [Mass/Vol] 3.1 mg/dL Normal 2.4 - 5 .1 mg/dL ADM SS Comment on above: Interpretive Data: * *Note - New Reference Range in effect 19 Platelet mean volume (Bld) [Entitic vol] 7.0 fL Normal 6.4 - 10.5 fL Workflow SS Platelets (Bld) [#/Vol] 270 103/mcL Normal 150 - 450 10^3/mcL Workflow SS Potassium [Moles/Vol] 3.6 mmol/L Normal 3.5 - 5.0 mEq/L ADM SS Protein [Mass/Vol] 6.7 G/dL Normal 5.7 - 8.2 G/dL ADM SS Comment on above: Interpretive Data: * *Note - New Reference Range in effect 19 PT Coag (PPP) [Time] 14.7 s High 9.0 - 1 4.4 seconds [facility] SS Comment on above: Interpretive Data: E ffective 12/11/07, Protime results may be affected by some antibiotics (i.e. Ciprofloxacin, Azithromycin, Bactrim) which may potentiate the action of oral anticoagulants, with further increases in Protime/INR. PT International Ratio 1.3 ratio Invalid Interpretation Code AH [facility] Comment on above: Interpretive Data: Baljinder linn [employer] (CHEST, 1991, [id number]) recommended therapeutic range for oral anticoagulant therapy is: LOW RISK: Prophylaxis of venous thrombosis INR: 2.0-3.0 Treatment of pulmonary embolism 2.0-3.0 Prevention of systemic embolism 2.0-3.0 HIGH RISK: Mechanical prosthetic valves 2.5-3.5 RBC (Bld) [#/Vol] 5.39 106/mcL Normal 4.50 - 6.0 0 10^6/mcL Workflow SS Sodium [Moles/Vol] 137 mmol/L Normal 136 - 145 mEq/L ADM Troponin I.cardiac DL <= 0.01 ng/mL [Mass/Vol] 4 ng/L Normal 0 - 54 ng/L [facility] Comment on above: Interpretive Data: High Sensitive Troponin I Reference Ranges: Female: 0-34 ng/L Male: 0-54 ng/L Testing performed on [employer] analyzer using direct chemiluminescent technology. Urea nitrogen [Mass/Vol] 21.0 mg/dL Normal 8.0 - 22.0 mg/dL ADM Urea nitrogen/Creatinine [Mass ratio] 11.2 ratio Normal 10.0 - 22.0 ratio ADM WBC (Bld) [#/Vol] 13.2 103/mcL High 4.5 - 10.8 10^3/mcL Workflow SS LABORATORYOrdered By: Yoanna Coleman on 01-31-2024 Blood Glucose Testing Reason Routine (01/31/24 7:30 AM) [facility] Glucose [Mass/Vol] 146 mg/dL High 70 - 110 mg/dL [facility] LABORATORYOrdered By: Jacqueline Ospina on 01-31-2024 FLUAV RNA ROSE+probe Ql (Resp) Negative 15 (01/31/24 4:30 AM) Normal Negative Auto [facility]Sero SS Comment on above: Result Comment: [place] s [id number] FLUBV RNA ROSE+probe Ql (Resp) Negative 16 (01/31/24 4:30 AM) Normal Negative AH Auto Viro/Sero SS Comment on above: Result Comment: [place] [id number] RSV PCR Negative 17 (01/31/24 4:30 AM) Normal Negative AH Auto Viro/Sero SS Comment on above: Result Comment: Note s [id number] SARS-CoV-2 (COVID-19) RNA ROSE+probe Ql (Resp) Negative 13, 14 (01/31/24 4:30 AM) Normal Negative AH Auto Viro/Sero SS Comment on above: Result Comment: [place] s [id number] Interpretive Data: T his test has been authorized by FDA under an EUA for use by authorized laboratories and has not been FDA cleared or approved. Results from the Xpert Xpress SARS-CoV-2/Flu/RSV or Xpert Xpress SARS-CoV-2 only test should be correlated with the clinical history, epidemiological data, and other data available to the clinician evaluating the patient. Performance of the Xpert Xpress SARS-CoV-2/Flu/RSV or Xpert Xpress SARS-CoV-2 only test has only been established in nasopharyngeal swab specimens. Erroneous test results might occur from improper specimen collection; failure to follow the recommended sample collection, handling, and storage procedures; technical error; or sample mix-up.False negative results may occur if virus is present at levels below the analytical limit of detection. Viral nucleic acid may persist in vivo, independent of virus viability. Detection of analyte target(s) does not imply that the corresponding virus(es) are infectious or are the causative agents for clinical symptoms.Recent patient exposure to FluMist or other live attenuated influenza vaccines may cause inaccurate positive results. LABORATORYOrdered By: Steve Powell on 01-31-2024 Calcium Ionized 1.07 mmol/L Low 1.12 - 1.32 mmol/L AH Main Rapid Comm SS LABORATORYOrdered By: Roshan Galarza on 01-31-2024 Blood Glucose Testing Reason Routine (01/31/24 2:48 AM) [facility] Glucose [Mass/Vol] 153 mg/dL High 70 - 110 mg/dL [facility] LACon 01-31-2024 Lactic Acid Lvl 1.2 mmol/L Normal 0.5-2.2 [facility] ([place]) Comment on above: Result Comment: Spec imen hemolyzed. Results may be affected. Performed By: #### A DIFF, TROPHS, GFR, BMP, MDW, CBC, PBNP, ANEU #### [address] [address] MGon 01-31-2024 Magnesium [Mass/Vol] 1.5 mg/dL Low 1.6-2.4 [facility] ([place]) Comment on above: Performed By: #### A DIFF, TROPHS, GFR, BMP, MDW, CBC, PBNP, ANEU #### [address] [address] No Panel Informationon 01-30 Microscopic examination of blood, culture Culture has been received in lab and is no growth to date. Routine cultures are held for 5 days. [facility] PHOSon 01-31-2024 Phosphate [Mass/Vol] 3.1 mg/dL Normal 2.4-5.1 [facility] ([place]) Comment on above: Result Comment: No te - New Reference Range in effect 19 Performed By: #### A DIFF, TROPHS, GFR, BMP, MDW, CBC, PBNP, ANEU #### [address] [address] PROon 01-31-2024 INR Coag (PPP) [Relative time] 1.3 {INR} Normal [facility] ([place]) Comment on above: Result Comment: [employer] (CHEST, 1992, [id number]) recommended therapeutic range for oral anticoagulant therapy is: LOW RISK: Prophylaxis of venous thrombosis INR: 2.0-3.0 Treatment of pulmonary embolism 2.0-3.0 Prevention of systemic embolism 2.0-3.0 HIGH RISK: Mechanical prosthetic valves 2.5-3.5 Performed By: #### A DIFF, TROPHS, GFR, BMP, MDW, CBC, PBNP, ANEU #### [address] [place] [address] PT Coag (PPP) [Time] 14.7 s High 9.0-14.4 [facility] ([place]) Comment on above: Result Comment: Effe ctive 12/11/07, Protime results may be affected by some antibiotics (i.e. Ciprofloxacin, Azithromycin, Bactrim) which may potentiate the action of oral anticoagulants, with further increases in Protime/INR. Performed By: #### A DIFF, TROPHS, GFR, BMP, MDW, CBC, PBNP, ANEU #### [address] [address] TROPHSon 01-31-2024 High Sensitivity Troponin I 4 ng/L Normal 0-54 [facility] ([place] Comment on above: Result Comment: High Sensitive Troponin I Reference Ranges: Female: 0-34 ng/L Male: 0-54 ng/L Testing performed on [email or web address] IM analyzer using direct chemiluminescent technology. Performed By: #### A DIFF, TROPHS, GFR, BMP, MDW, CBC, PBNP, ANEU #### [address] [address] .Auto Diffon 01-30-2024 Basophil, Absolute 0.2 10 3/mcL Normal 0.0-0.2 [facility] ([place]) Comment on above: Performed By: #### A DIFF, TROPHS, GFR, BMP, MDW, CBC, PBNP, ANEU #### [address] [address] Basophils/100 WBC (Bld) 1.1 % Normal 0.0-2.5 [facility] ([place] Comment on above: Performed By: #### A DIFF, TROPHS, GFR, BMP, MDW, CBC, PBNP, ANEU #### [address] [address] Eosinophil, Absolute 0.1 10 3/mcL Normal 0.0-0.4 [facility] ([place]) Comment on above: Performed By: #### A DIFF, TROPHS, GFR, BMP, MDW, CBC, PBNP, ANEU #### [address] [address] Eosinophils/100 WBC (Bld) 0.7 % Normal 0.0-7.0 [facility] ([place] Comment on above: Performed By: #### A DIFF, TROPHS, GFR, BMP, MDW, CBC, PBNP, ANEU #### [address] [address] Lymphocyte, Absolute 2.8 10 3/mcL Normal 0.8-3.9 [facility] ([place]) Comment on above: Performed By: #### A DIFF, TROPHS, GFR, BMP, MDW, CBC, PBNP, ANEU #### [address] [address] Lymphocytes/100 WBC (Bld) 20.2 % Normal 10.0-50.0 [facility] ([place] Comment on above: Performed By: #### A DIFF, TROPHS, GFR, BMP, MDW, CBC, PBNP, ANEU #### [address] [address] Monocyte, Absolute 1.7 10 3/mcL High 0.2-1.0 [facility] ([place] Comment on above: Performed By: #### A DIFF, TROPHS, GFR, BMP, MDW, CBC, PBNP, ANEU #### [address] [address] Monocytes/100 WBC (Bld) 12.2 % Normal 1.7-13.0 [facility] ([place] Comment on above: Performed By: #### A DIFF, TROPHS, GFR, BMP, MDW, CBC, PBNP, ANEU #### [address] [address] Neutrophils/100 WBC (Bld) 65.8 % Normal 37.0-80.0 [facility] ([place] Comment on above: Performed By: #### A DIFF, TROPHS, GFR, BMP, MDW, CBC, PBNP, ANEU #### [address] [address] .GFRon 01-30-2024 GFR 38 ml/min/1.73sqm Normal [facility] ([place]) Comment on above: Result Comment: GFR Population mean for , Non- Americans Ages 20-29 = 116 mL/min/1.73 sq.m. Ages 30-39 = 107 mL/min/1.73 sq.m. Ages 40-49 = 99 mL/min/1.73 sq.m. Ages 50-59 = 93 mL/min/1.73 sq.m. Ages 60-69 = 85 mL/min/1.73 sq.m. Ages 70+ = 75 mL/min/1.73 sq.m. Chronic Kidney Disease: Less than 60 mL/min/1.73 square meters End Stage Renal Disease: Less than 15 mL/min/1.73 square meters Performed By: #### A DIFF, TROPHS, GFR, BMP, MDW, CBC, PBNP, ANEU #### [address] [address] GFR Non- 31 ml/min/1.73sqm Normal [facility] ([place] Comment on above: Result Comment: GFR Population mean for , Non- Americans Ages 20-29 = 116 mL/min/1.73 sq.m. Ages 30-39 = 107 mL/min/1.73 sq.m. Ages 40-49 = 99 mL/min/1.73 sq.m. Ages 50-59 = 93 mL/min/1.73 sq.m. Ages 60-69 = 85 mL/min/1.73 sq.m. Ages 70+ = 75 mL/min/1.73 sq.m. Chronic Kidney Disease: Less than 60 mL/min/1.73 square meters End Stage Renal Disease: Less than 15 mL/min/1.73 square meters Performed By: #### A DIFF, TROPHS, GFR, BMP, MDW, CBC, PBNP, ANEU #### [address] [address] .MDWon 01-30-2024 Monocyte Distribution Width 21.35 High 0.00-20.00 [facility] ([place] Comment on above: Result Comment: For adults in ED, MDW>20.0 may be associated with a higher risk of sepsis during the first 12hrs of hospital admission Performed By: #### A DIFF, TROPHS, GFR, BMP, MDW, CBC, PBNP, ANEU #### [place] [address] .NEUABSon 01-30-2024 Neutrophil, Absolute 9.2 10 3/mcL High 2.9-6.2 [facility] ([place]) Comment on above: Performed By: #### A DIFF, TROPHS, GFR, BMP, MDW, CBC, PBNP, ANEU #### [place] [address] .Urinalysis Microscopic (AO) on 01-30-2024 UA RBC None Seen Normal None Seen [facility] ([place] Comment on above: Performed By: #### A DIFF, TROPHS, GFR, BMP, MDW, CBC, PBNP, ANEU #### [place] [address] UA Squam Epithelial None Seen Normal None Seen [facility] ([place]) Comment on above: Performed By: #### A DIFF, TROPHS, GFR, BMP, MDW, CBC, PBNP, ANEU #### [address] [address] UA WBC 0-5 Abnormal None Seen [facility] ([place] Comment on above: Performed By: #### A DIFF, TROPHS, GFR, BMP, MDW, CBC, PBNP, ANEU #### [place] [address] BGon 01-30-2024 Base excess Calc (Bld) [Moles/Vol] 4.3 mmol/L Normal [facility] ([place] Comment on above: Performed By: #### A DIFF, TROPHS, GFR, BMP, MDW, CBC, PBNP, ANEU #### [place] [address] CO2 [Moles/Vol] 29.8 mmol/L Normal 22.0-30.0 [facility] ([place] Comment on above: Performed By: #### A DIFF, TROPHS, GFR, BMP, MDW, CBC, PBNP, ANEU #### [address] [address] HCO3 (Bld) [Moles/Vol] 28.5 mmol/L Normal 21.0-29.0 [facility] ([place] Comment on above: Performed By: #### A DIFF, TROPHS, GFR, BMP, MDW, CBC, PBNP, ANEU #### [address] [address] Oxygen (Bld) [Partial pressure] 51.0 mm[Hg] Low 74.0-108.0 [facility] ([place] Comment on above: Performed By: #### A DIFF, TROPHS, GFR, BMP, MDW, CBC, PBNP, ANEU #### [address] [address] Oxygen saturation in Blood 88.8 % Low 92.0-96.0 [facility] ([place] Comment on above: Performed By: #### A DIFF, TROPHS, GFR, BMP, MDW, CBC, PBNP, ANEU #### [address] [address] pCO2 41.0 mmHg Normal 32.0-46.0 [facility] ([place] Comment on above: Performed By: #### A DIFF, TROPHS, GFR, BMP, MDW, CBC, PBNP, ANEU #### [address] [address] pH (Bld) 7.460 [pH] Normal 7.380-7.460 [facility] ([place] Comment on above: Performed By: #### A DIFF, TROPHS, GFR, BMP, MDW, CBC, PBNP, ANEU #### [address] [address] BMPon 01-30-2024 BUN/Creatinine Ratio 8 ratio Normal 7-27 [facility] ([place] Comment on above: Performed By: #### A DIFF, TROPHS, GFR, BMP, MDW, CBC, PBNP, ANEU #### [address] [address] Calcium [Mass/Vol] 8.8 mg/dL Normal 8.4-10.2 [facility] [place] Comment on above: Performed By: #### A DIFF, TROPHS, GFR, BMP, MDW, CBC, PBNP, ANEU #### [address] [address] Chloride [Moles/Vol] 97 mmol/L Low 98-107 [facility] ([place] Comment on above: Performed By: #### A DIFF, TROPHS, GFR, BMP, MDW, CBC, PBNP, ANEU #### [address] [address] CO2 [Moles/Vol] 31 mmol/L High 22-29 [facility] ([place] Comment on above: Performed By: #### A DIFF, TROPHS, GFR, BMP, MDW, CBC, PBNP, ANEU #### [address] [address] Creatinine [Mass/Vol] 2.22 mg/dL High 0.70-1.30 [facility]) Comment on above: Result Comment: Test ing performed on Siemens Dimension EXL analyzer using a modified kinetic Ciera technique. Performed By: #### A DIFF, TROPHS, GFR, BMP, MDW, CBC, PBNP, ANEU #### [address] [address] Electrolyte Balance 6.0 mEq/L Normal 4.0-15.0 [facility] ([place]) Comment on above: Performed By: #### A DIFF, TROPHS, GFR, BMP, MDW, CBC, PBNP, ANEU #### [address] [address] Glucose [Mass/Vol] 112 mg/dL High 70-105 [facility] [place] Comment on above: Performed By: #### A DIFF, TROPHS, GFR, BMP, MDW, CBC, PBNP, ANEU #### [address] [address] Potassium [Moles/Vol] 3.7 mmol/L Normal 3.5-5.1 [facility] ([place]) Comment on above: Performed By: #### A DIFF, TROPHS, GFR, BMP, MDW, CBC, PBNP, ANEU #### [address] [address] Sodium [Moles/Vol] 134 mmol/L Low 136-145 [facility] [place] Comment on above: Performed By: #### A DIFF, TROPHS, GFR, BMP, MDW, CBC, PBNP, ANEU #### [address] [address] Urea nitrogen [Mass/Vol] 17 mg/dL Normal 7-18 [facility] ([place] Comment on above: Performed By: #### A DIFF, TROPHS, GFR, BMP, MDW, CBC, PBNP, ANEU #### [address] [address] CBCon 01-30-2024 Erythrocyte distribution width (RBC) [Ratio] 16.5 % High 11.5-14.5 [facility] ([place] Comment on above: Performed By: #### A DIFF, TROPHS, GFR, BMP, MDW, CBC, PBNP, ANEU #### [address] [address] Hematocrit (Bld) [Volume fraction] 45.3 % Normal 42.0-52.0 [facility] ([place] Comment on above: Performed By: #### A DIFF, TROPHS, GFR, BMP, MDW, CBC, PBNP, ANEU #### [address] [address] Hgb 14.9 G/dL Normal 14.0-18.0 [facility] ([place] Comment on above: Performed By: #### A DIFF, TROPHS, GFR, BMP, MDW, CBC, PBNP, ANEU #### [address] [address] MCH (RBC) [Entitic mass] 26.6 pg Low 27.0-31.2 [facility] ([place] Comment on above: Performed By: #### A DIFF, TROPHS, GFR, BMP, MDW, CBC, PBNP, ANEU #### [address] [address] MCHC 33.0 G/dL Normal 31.8-35.4 [facility] ([place] Comment on above: Performed By: #### A DIFF, TROPHS, GFR, BMP, MDW, CBC, PBNP, ANEU #### [address] [address] MCV (RBC) [Entitic vol] 80.7 fL Normal 80.0-94.0 [facility] ([place] Comment on above: Performed By: #### A DIFF, TROPHS, GFR, BMP, MDW, CBC, PBNP, ANEU #### [address] [address] Platelet 263 10 3/mcL Normal 130-400 [facility] ([place] Comment on above: Performed By: #### A DIFF, TROPHS, GFR, BMP, MDW, CBC, PBNP, ANEU #### [address] [address] Platelet mean volume (Bld) [Entitic vol] 6.8 fL Low 7.4-10.4 [facility] ([place] Comment on above: Performed By: #### A DIFF, TROPHS, GFR, BMP, MDW, CBC, PBNP, ANEU #### [address] [address] RBC 5.61 10 6/mcL Normal 4.04-6.13 [facility] ([place] Comment on above: Performed By: #### A DIFF, TROPHS, GFR, BMP, MDW, CBC, PBNP, ANEU #### [address] [address] WBC 14.0 10 3/mcL High 4.6-10.8 [facility] ([place] Comment on above: Performed By: #### A DIFF, TROPHS, GFR, BMP, MDW, CBC, PBNP, ANEU #### [address] [address] [address] HEAD OR BRAIN W/O CONTRAS Ton 01-30-2024 CT HEAD OR BRAIN W/O CONTRAST ORIGINAL EXAMINATION: CT OF THE HEAD WITHOUT CONTRAST9/07/2023 10:[address] HEAD/BRAIN WITHOUT CONTRAST EXAM DESCRIPTION: TECHNIQUE: CT of the head was performed without the administration of intravenous contrast. Automated exposure control, iterative reconstruction, and/or weight based adjustment of the mA/kV was utilized to reduce the radiation dose to as low as reasonably achievable. COMPARISON: None available HISTORY: ORDERING SYSTEM PROVIDED HISTORY: Reason for Exam: syncopal episode FINDINGS: The size, density, and morphology of the brain and CSF containing spaces appears normal. There is no evidence of mass, midline shift, hemorrhage, or infract. The ventricles, cortical sulci, and subarachnoid cisterns appear unremarkable. There are no extra-axial fluid collections. No regions of pathologic attenuation are evident. Regions of the orbits and paranasal sinuses included within the field of view are unremarkable. There is no displaced fracture or osseous neoplasm. The extracalvarial soft tissues appear unremarkable. IMPRESSION: No acute intracranial pathology. COMMENT: Changes resultant from ischemia (even significant ischemia) may often be inapparent on CT exam, particularly if imaged early. Additionally, early changes due to neoplastic or inflammatory processes can be subtle to the extent that they are not prospectively noted. Therefore, if symptoms persist, or clinical suspicion for pathology remains, further evaluation may be obtained with MRI. Interpreted by: Keagan Morfin MD Preliminary Report By: Keagan Morfin MD Electronically signed By Keagan Morfin MD Dictated Date: 01/30/2024 10:06:01 PM Prelim Date: 01/30/2024 10:16:46 PM Sign Date: 01/30/2024 10:16:46 PM Ordering Provider: SAMY Kate [facility]) LABORATORYOrdered By: Jil Morales on 01-30-2024 Appearance (U) Clear (01/30/24 11:33 PM) Normal Clear AO Auto Urine SS Bilirubin Ql (U) Small *ABN* (01/30/24 11:33 PM) Invalid Interpretation Code Negative AO Auto Urine SS Color (U) Yellow (01/30/24 11:33 PM) Normal AO Auto Urine SS Glucose Test strip (U) [Mass/Vol] Negative Normal Negative AO Auto Urine SS Hemoglobin Auto test strip (U) [Mass/Vol] Trace *ABN* (01/30/24 11:33 PM) Invalid Interpretation Code Negative AO Auto Urine SS Ketones Ql (U) Negative Normal Negative AO Auto Ur ine SS UA Leuk Est Trace *ABN* (01/30/24 11:33 PM) Invalid Interpretation Code Negative AO Auto Urine SS UA Nitrite Negative (01/30/24 11:33 PM) Normal Negative AO Auto Urine SS UA pH 6.0 (01/30/24 11:33 PM) Normal 5.0 - 8.0 AO Auto Urine SS UA Protein 100 mg/dL Invalid Interpretation Code Negative AO Auto Urine SS UA RBC None Seen /HPF Normal None Seen AO Auto Ur ine SS UA Spec Grav 1.025 (01/30/24 11:33 PM) Normal 1.015-1.025 AO Auto Urine SS UA Specimen Type Void (01/30/24 11:33 PM) Normal AO Auto Urine SS UA Squam Epithelial None Seen /HPF Normal None Seen A O Auto Urine SS UA Urobilinogen 1.0 E.U./dL Normal 0.2-1.0 AO Auto Urine SS WBC LM.HPF (Urine sed) [#/Area] 0-5 /HPF Invalid Interpretation Code None Seen AO Auto Urine SS LABORATORYOrdered By: SYSTEM SYSTEM on 01-30-2024 Troponin I.cardiac DL <= 0.01 ng/mL [Mass/Vol] 7 ng/L Normal 0 - 76 ng/L AO ADM SS Comment on above: Interpretive Data: H igh Sensitive Troponin I Reference Ranges: Female: 0-51 ng/L Male: 0-76 ng/L Testing performed on [employer] using a homogeneous sandwich chemiluminescent immunoassay based on Fara technology. Lactate [Moles/Vol] 1.0 mmol/L Normal 0.4 - 2. 0 mmol/L AO ADM SS Basophil, Absolute 0.2 103/mcL Normal 0.0 - 0.2 10^3/mcL AO Workflow SS Basophils/100 WBC (Bld) 1.1 % Normal 0.0 - 2.5 % AO Workflow SS Calcium [Mass/Vol] 8.8 mg/dL Normal 8.4 - 10. 2 mg/dL AO ADM SS Chloride [Moles/Vol] 97 mmol/L Low 98 - 10 7 mmol/L AO ADM SS CO2 [Moles/Vol] 31 mmol/L High 22 - 29 mmol/L AO ADM SS Creatinine [Mass/Vol] 2.22 mg/dL High 0.70 - 1.30 mg/dL AO ADM SS Comment on above: Interpretive Data: T esting performed on Siemens Dimension EXL analyzer using a modified kinetic Ciera technique. Electrolyte Balance 6.0 mEq/L Normal 4.0 - 15 .0 mEq/L AO ADM SS Eosinophil, Absolute 0.1 103/mcL Normal 0.0 - 0 .4 10^3/mcL AO Workflow SS Eosinophils/100 WBC (Bld) 0.7 % Normal 0.0 - 7.0 % AO Workflow SS Erythrocyte distribution width (RBC) [Ratio] 16.5 % High 11.5 - 14.5 % AO Workflow SS GFR/1.73 sq M.predicted among blacks MDRD (S/P/Bld) [Vol rate/Area] 38 ml/min/1.73sqm Invalid Interpretation Code AO Chemistry S Comment on above: Interpretive Data: GFR Population mean for , Non- Americans Ages 20-29 = 116 mL/min/1.73 sq.m. Ages 30-39 = 107 mL/min/1.73 sq.m. Ages 40-49 = 99 mL/min/1.73 sq.m. Ages 50-59 = 93 mL/min/1.73 sq.m. Ages 60-69 = 85 mL/min/1.73 sq.m. Ages 70+ = 75 mL/min/1.73 sq.m. Chronic Kidney Disease: Less than 60 mL/min/1.73 square meters End Stage Renal Disease: Less than 15 mL/min/1.73 square meters GFR/1.73 sq M.predicted among non-blacks MDRD (S/P/Bld) [Vol rate/Area] 31 ml/min/1.73sqm Invalid Interpretation Code AO Chemistry S Comment on above: Interpretive Data: GFR Population mean for , Non- Americans Ages 20-29 = 116 mL/min/1.73 sq.m. Ages 30-39 = 107 mL/min/1.73 sq.m. Ages 40-49 = 99 mL/min/1.73 sq.m. Ages 50-59 = 93 mL/min/1.73 sq.m. Ages 60-69 = 85 mL/min/1.73 sq.m. Ages 70+ = 75 mL/min/1.73 sq.m. Chronic Kidney Disease: Less than 60 mL/min/1.73 square meters End Stage Renal Disease: Less than 15 mL/min/1.73 square meters Glucose [Mass/Vol] 112 mg/dL High 70 - 105 mg/dL AO ADM SS Hematocrit (Bld) [Volume fraction] 45.3 % Normal 42.0 - 52.0 % AO Workflow SS Hemoglobin (Bld) [Mass/Vol] 14.9 G/dL Normal 14.0 - 18.0 G/dL AO Workflow SS Lymphocyte, Absolute 2.8 103/mcL Normal 0.8 - 3 .9 10^3/mcL AO Workflow SS Lymphocytes/100 WBC (Bld) 20.2 % Normal 10.0 - 50.0 % AO Workflow SS MCH (RBC) [Entitic mass] 26.6 pg Low 27.0 - 31.2 pg AO Workflow SS MCHC 33.0 G/dL Normal 31.8 - 35.4 G/dL AO Workflow SS MCV (RBC) [Entitic vol] 80.7 fL Normal 80.0 - 94.0 fL AO Workflow SS Monocyte distribution width Auto (Bld) [Entitic vol] 21.35 1 High 0.00 - 20.00 AO Workflow SS Comment on above: Result Comment: For adults in ED, MDW>20.0 may be associated with a higher risk of sepsis during the first 12hrs of hospital admission Monocyte, Absolute 1.7 103/mcL High 0.2 - 1.0 10^3/mcL AO Workflow SS Monocytes/100 WBC (Bld) 12.2 % Normal 1.7 - 13.0 % AO Workflow SS Natriuretic peptide.B prohormone N-Terminal [Mass/Vol] 1822 pg/mL High 0 - 125 pg/mL AO ADM SS Comment on above: Interpretive Data: N T-proBNP results of less than 300 pg/mL effectively rules out acute congestive heart failure with 99% negative predictive value. Neutrophil, Absolute 9.2 103/mcL High 2.9 - 6 .2 10^3/mcL AO Workflow SS Neutrophils/100 WBC (Bld) 65.8 % Normal 37.0 - 80.0 % AO Workflow SS Platelet mean volume (Bld) [Entitic vol] 6.8 fL Low 7.4 - 10.4 fL AO Workflow SS Platelets (Bld) [#/Vol] 263 103/mcL Normal 130 - 400 10^3/mcL AO Workflow SS Potassium [Moles/Vol] 3.7 mmol/L Normal 3.5 - 5.1 mmol/L AO ADM SS RBC (Bld) [#/Vol] 5.61 106/mcL Normal 4.04 - 6.1 3 10^6/mcL AO Workflow SS Sodium [Moles/Vol] 134 mmol/L Low 136 - 145 mmol/L AO ADM SS Troponin I.cardiac DL <= 0.01 ng/mL [Mass/Vol] 8 ng/L Normal 0 - 76 ng/L AO ADM SS Comment on above: Interpretive Data: H igh Sensitive Troponin I Reference Ranges: Female: 0-51 ng/L Male: 0-76 ng/L Testing performed on [employer] using a homogeneous sandwich chemiluminescent immunoassay based on Fara technology. Urea nitrogen [Mass/Vol] 17 mg/dL Normal 7 - 18 mg/dL AO ADM SS Urea nitrogen/Creatinine [Mass ratio] 8 ratio Normal 7 - 27 ratio AO ADM SS WBC (Bld) [#/Vol] 14.0 103/mcL High 4.6 - 10.8 10^3/mcL AO Workflow SS LABORATORYOrdered By: Steve Peterson on 01-30-2024 Base Excess 4.3 mmol/L Invalid Interpretation Code AO Rapid Comm SS CO2 [Moles/Vol] 29.8 mmol/L Normal 22.0 - 30.0 mmol/L AO Rapid Comm SS HCO3 (Bld) [Moles/Vol] 28.5 mmol/L Normal 21.0 - 29.0 mmol/L AO Rapid Comm SS Oxygen (Bld) [Partial pressure] 51.0 mm[Hg] Low 74.0 - 108.0 mm Hg AO Rapid Comm SS pCO2 41.0 mm[Hg] Normal 32.0 - 46.0 mm Hg AO Rapid Comm SS pH (Bld) 7.460 [pH] Normal 7.380 - 7.460 AO Rapid Comm SS LACon 01-30-2024 Lactic Acid Lvl 1.0 mmol/L Normal 0.4-2.0 [facility] ([place]) Comment on above: Performed By: #### L AC #### [address] [address] No Panel Informationon 01-29 Microscopic examination of blood, culture Culture has been received in lab and is no growth to date. Routine cultures are held for 5 days. [facility] PBNPon 01-30-2024 Natriuretic peptide B (Bld) [Mass/Vol] 1822 pg/mL High 0-125 [facility] ([place] Comment on above: Result Comment: NT-p roBNP results of less than 300 pg/mL effectively rules out acute congestive heart failure with 99% negative predictive value. Performed By: #### A DIFF, TROPHS, GFR, BMP, MDW, CBC, PBNP, ANEU #### [address] [address] TROPHSon 01-30-2024 High Sensitivity Troponin I 7 ng/L Normal 0-76 [facility] ([place] Comment on above: Result Comment: High Sensitive Troponin I Reference Ranges: Female: 0-51 ng/L Male: 0-76 ng/L Testing performed on [employer] using a homogeneous sandwich chemiluminescent immunoassay based on Fara technology. Performed By: #### A DIFF, TROPHS, GFR, BMP, MDW, CBC, PBNP, ANEU #### [address] [address] High Sensitivity Troponin I 8 ng/L Normal 0-76 [facility] ([place] Comment on above: Result Comment: High Sensitive Troponin I Reference Ranges: Female: 0-51 ng/L Male: 0-76 ng/L Testing performed on Dimension EXL using a homogeneous sandwich chemiluminescent immunoassay based on Fara technology. Performed By: #### A DIFF, TROPHS, GFR, BMP, MDW, CBC, PBNP, ANEU #### [address] [address] UAon 01-30-2024 Color (U) Yellow Normal [facility] ([place] Comment on above: Performed By: #### A DIFF, TROPHS, GFR, BMP, MDW, CBC, PBNP, ANEU #### [address] [place], [place] [address] Glucose (U) [Mass/Vol] Negative Normal Negative [facility] ([place] Comment on above: Performed By: #### A DIFF, TROPHS, GFR, BMP, MDW, CBC, PBNP, ANEU #### [address] [address] Ketones Ql (U) Negative Normal Negative [facility] ([place] Comment on above: Performed By: #### A DIFF, TROPHS, GFR, BMP, MDW, CBC, PBNP, ANEU #### [address] [address] UA Appear Clear Normal Clear [facility] ([place] Comment on above: Performed By: #### A DIFF, TROPHS, GFR, BMP, MDW, CBC, PBNP, ANEU #### [address] [address] UA Bili Small Abnormal Negative [facility] ([place] Comment on above: Performed By: #### A DIFF, TROPHS, GFR, BMP, MDW, CBC, PBNP, ANEU #### [address] [address] UA Blood Trace Abnormal Negative [facility] ([place] Comment on above: Performed By: #### A DIFF, TROPHS, GFR, BMP, MDW, CBC, PBNP, ANEU #### [address] [address] UA Leuk Est Trace Abnormal Negative [facility] ([place] Comment on above: Performed By: #### A DIFF, TROPHS, GFR, BMP, MDW, CBC, PBNP, ANEU #### [address] [address] UA Nitrite Negative Normal Negative [facility] ([place] Comment on above: Performed By: #### A DIFF, TROPHS, GFR, BMP, MDW, CBC, PBNP, ANEU #### [address] [address] UA pH 6.0 Normal 5.0 - 8.0 [facility] ([place] Comment on above: Performed By: #### A DIFF, TROPHS, GFR, BMP, MDW, CBC, PBNP, ANEU #### [address] [address] UA Protein 100 mg/dL Abnormal Negative [facility] ([place] Comment on above: Performed By: #### A DIFF, TROPHS, GFR, BMP, MDW, CBC, PBNP, ANEU #### [address] [address] UA Spec Grav 1.025 Normal 1.015-1.025 [facility] ([place] Comment on above: Performed By: #### A DIFF, TROPHS, GFR, BMP, MDW, CBC, PBNP, ANEU #### [address] [address] UA Specimen Type Void Normal [facility] ([place] Comment on above: Performed By: #### A DIFF, TROPHS, GFR, BMP, MDW, CBC, PBNP, ANEU #### [address] [address] UA Urobilinogen 1.0 E.U./dL Normal 0.2-1.0 [facility] ([place] Comment on above: Performed By: #### A DIFF, TROPHS, GFR, BMP, MDW, CBC, PBNP, ANEU #### [address] [address] XR CHEST 1 VIEWon 01-30-2024 XR CHEST 1 VIEW ORIGINAL EXAMINATION: ONE XRAY VIEW OF THE CHEST01/30/2024 9:21 pm COMPARISON: Chest x-ray 06/13/2023 HISTORY: ORDERING SYSTEM PROVIDED HISTORY: Reason for Exam: SOB/cough/fever FINDINGS: Suboptimal exam due to body habitus. The cardiomediastinal silhouette is stable. No definite focal consolidation. Costophrenic angles are sharp. No radiographic pneumothorax. Osseous structures grossly unchanged IMPRESSION: Suboptimal exam due to patient body habitus. No definite focal consolidation. I have personally reviewed the images of this examination and agree with the resident's findings and interpretation. Interpreted by: Trace Fierro Preliminary Report By: Kike Acevedo Electronically signed By Trace Fierro Dictated Date: 01/30/2024 9:24:47 PM Prelim Date: 01/30/2024 9:26:56 PM Sign Date: 01/30/2024 9:28:12 PM Ordering Provider: SAMY JONES [facility] ([place]) .GFRon 08-08-2023 GFR Non- 105 ml/min/1.73sqm Normal [facility] ([place] Comment on above: Result Comment: GFR Population mean for , Non- Americans Ages 20-29 = 116 mL/min/1.73 sq.m. Ages 30-39 = 107 mL/min/1.73 sq.m. Ages 40-49 = 99 mL/min/1.73 sq.m. Ages 50-59 = 93 mL/min/1.73 sq.m. Ages 60-69 = 85 mL/min/1.73 sq.m. Ages 70+ = 75 mL/min/1.73 sq.m. Chronic Kidney Disease: Less than 60 mL/min/1.73 square meters End Stage Renal Disease: Less than 15 mL/min/1.73 square meters Performed By: #### A DIFF, TROPHS, GFR, BMP, MDW, CBC, PBNP, ANEU #### [address] [address] GFR 127 ml/min/1.73sqm Normal [facility] ([place] Comment on above: Result Comment: GFR Population mean for , Non- Americans Ages 20-29 = 116 mL/min/1.73 sq.m. Ages 30-39 = 107 mL/min/1.73 sq.m. Ages 40-49 = 99 mL/min/1.73 sq.m. Ages 50-59 = 93 mL/min/1.73 sq.m. Ages 60-69 = 85 mL/min/1.73 sq.m. Ages 70+ = 75 mL/min/1.73 sq.m. Chronic Kidney Disease: Less than 60 mL/min/1.73 square meters End Stage Renal Disease: Less than 15 mL/min/1.73 square meters Performed By: #### A DIFF, TROPHS, GFR, BMP, MDW, CBC, PBNP, ANEU #### [address] [address] A1Con 08-08-2023 HbA1c (Bld) [Mass fraction] 6.7 % High 4.3-6.4 [facility] ([place] Comment on above: Performed By: #### A DIFF, TROPHS, GFR, BMP, MDW, CBC, PBNP, ANEU #### [address] [address] CMPon 08-08-2023 Albumin Level 3.4 G/dL Low 3.5-5.0 [facility] ([place] Comment on above: Performed By: #### A DIFF, TROPHS, GFR, BMP, MDW, CBC, PBNP, ANEU #### [address] [address] Albumin/Globulin [Mass ratio] 0.9 {ratio} Low 1.1-2.5 [facility] ([place] Comment on above: Performed By: #### A DIFF, TROPHS, GFR, BMP, MDW, CBC, PBNP, ANEU #### [address] [address] ALP [Catalytic activity/Vol] 87 U/L Normal 40-135 [facility] ([place] Comment on above: Performed By: #### A DIFF, TROPHS, GFR, BMP, MDW, CBC, PBNP, ANEU #### [address] [address] ALT [Catalytic activity/Vol] 19 U/L Normal 16-63 [facility] ([place] Comment on above: Performed By: #### A DIFF, TROPHS, GFR, BMP, MDW, CBC, PBNP, ANEU #### [address] [address] AST [Catalytic activity/Vol] 15 U/L Normal 10-40 [facility] ([place] Comment on above: Performed By: #### A DIFF, TROPHS, GFR, BMP, MDW, CBC, PBNP, ANEU #### [address] [address] Bili Total 0.5 mg/dL Normal 0.2-1.0 [facility] ([place] Comment on above: Result Comment: Use of this assay is not recommended for patients undergoing treatment with eltrombopag due to the potential for falsely elevated results. Performed By: #### A DIFF, TROPHS, GFR, BMP, MDW, CBC, PBNP, ANEU #### [address] [address] BUN/Creatinine Ratio 14 ratio Normal 7-27 [facility] ([place]) Comment on above: Performed By: #### A DIFF, TROPHS, GFR, BMP, MDW, CBC, PBNP, ANEU #### [address] [address] Calcium [Mass/Vol] 8.7 mg/dL Normal 8.4-10.2 [facility] [place] Comment on above: Performed By: #### A DIFF, TROPHS, GFR, BMP, MDW, CBC, PBNP, ANEU #### [address] [address] Chloride [Moles/Vol] 100 mmol/L Normal 98-107 [facility] ([place]) Comment on above: Performed By: #### A DIFF, TROPHS, GFR, BMP, MDW, CBC, PBNP, ANEU #### [address] [address] CO2 [Moles/Vol] 34 mmol/L High 22-29 [facility] ([place] Comment on above: Performed By: #### A DIFF, TROPHS, GFR, BMP, MDW, CBC, PBNP, ANEU #### [address] [address] Creatinine [Mass/Vol] 0.78 mg/dL Normal 0.70-1.30 [facility] ([place]) Comment on above: Performed By: #### A DIFF, TROPHS, GFR, BMP, MDW, CBC, PBNP, ANEU #### [address] [address] Electrolyte Balance 6.0 mEq/L Normal 4.0-15.0 [facility] ([place]) Comment on above: Performed By: #### A DIFF, TROPHS, GFR, BMP, MDW, CBC, PBNP, ANEU #### [address] [address] Globulin 3.8 G/dL Normal [facility] ([place] Comment on above: Performed By: #### A DIFF, TROPHS, GFR, BMP, MDW, CBC, PBNP, ANEU #### [address] [address] Glucose [Mass/Vol] 121 mg/dL High 70-105 [facility] [place] Comment on above: Performed By: #### A DIFF, TROPHS, GFR, BMP, MDW, CBC, PBNP, ANEU #### [address] [address] Potassium [Moles/Vol] 4.2 mmol/L Normal 3.5-5.1 [facility] ([place]) Comment on above: Performed By: #### A DIFF, TROPHS, GFR, BMP, MDW, CBC, PBNP, ANEU #### [address] [address] Sodium [Moles/Vol] 140 mmol/L Normal 136-145 [facility]) Comment on above: Performed By: #### A DIFF, TROPHS, GFR, BMP, MDW, CBC, PBNP, ANEU #### [address] [address] Total Protein 7.2 G/dL Normal 6.4-8.2 [facility]) Comment on above: Performed By: #### A DIFF, TROPHS, GFR, BMP, MDW, CBC, PBNP, ANEU #### [address] [address] Urea nitrogen [Mass/Vol] 11 mg/dL Normal 7-18 [facility]) Comment on above: Performed By: #### A DIFF, TROPHS, GFR, BMP, MDW, CBC, PBNP, ANEU #### [address] [address] LABORATORYOrdered By: Jr Fontaine on 08-08-2023 Albumin DL <= 20 mg/L (U) [Mass/Vol] 378 mcg/dL Invalid Interpretation Code AO ADM SS Albumin/Creatinine DL <= 20 mg/L (U) [Mass ratio] 12 mcg/mg Normal 0 - 30 mcg/mg AO ADM SS Creatinine (U) [Mass/Vol] 30.5 mg/dL Low 39.0 - 259.0 mg/dL AO ADM SS LIPIDon 08-08-2023 Cholesterol [Mass/Vol] 156 mg/dL Normal 0-200 [facility] ([place]) Comment on above: Result Comment: Chol esterol Reference Interval: Less than 200 Desirable 200-239 Borderline high risk 240 and above High risk Performed By: #### A DIFF, TROPHS, GFR, BMP, MDW, CBC, PBNP, ANEU #### [address] [address] Cholesterol in HDL [Mass/Vol] 28 mg/dL Low 40-60 [facility] ([place] Comment on above: Performed By: #### A DIFF, TROPHS, GFR, BMP, MDW, CBC, PBNP, ANEU #### [address] [address] Cholesterol in LDL [Mass/Vol] 93 mg/dL Normal 0-130 [facility] ([place] Comment on above: Performed By: #### A DIFF, TROPHS, GFR, BMP, MDW, CBC, PBNP, ANEU #### [address] [address] Triglyceride [Mass/Vol] 175 mg/dL High 0-150 [facility] ([place] Comment on above: Result Comment: Trig lyceride Reference Interval: Less than 150 Normal 150-199 Borderline high risk 200-499 High risk 500 or higher Very high risk Performed By: #### A DIFF, TROPHS, GFR, BMP, MDW, CBC, PBNP, ANEU #### [address] [address] MALBRon 08-08-2023 U Creatinine 30.5 mg/dL Low 39.0-259.0 [facility] ([place] Comment on above: Performed By: #### A DIFF, TROPHS, GFR, BMP, MDW, CBC, PBNP, ANEU #### [address] [address] U Microalb 378 mcg/dL Normal [facility] ([place] Comment on above: Performed By: #### A DIFF, TROPHS, GFR, BMP, MDW, CBC, PBNP, ANEU #### [place] [address] U Ratio Alb/Cre 12 mcg/mg Normal 0-30 [facility] ([place] Comment on above: Performed By: #### A DIFF, TROPHS, GFR, BMP, MDW, CBC, PBNP, ANEU #### [place] [address] CVFLURVon 06-13-2023 FLU A PCR Negative Normal Negative [facility] ([place] Comment on above: Performed By: #### A DIFF, TROPHS, GFR, BMP, MDW, CBC, PBNP, ANEU #### [place] [address] FLU B PCR Negative Normal Negative [facility] ([place] Comment on above: Performed By: #### A DIFF, TROPHS, GFR, BMP, MDW, CBC, PBNP, ANEU #### [address] [place] [address] RSV PCR Negative Normal Negative [facility] ([place] Comment on above: Performed By: #### A DIFF, TROPHS, GFR, BMP, MDW, CBC, PBNP, ANEU #### [place] [address] SARS-CoV-2 (COVID-19) RNA ROSE+probe Ql (Unsp spec) Negative Normal Negative [facility] ([place] Comment on above: Result Comment: This test has been authorized by FDA under an EUA for use by authorized laboratories and has not been FDA cleared or approved. Results from the Xpert Xpress SARS-CoV-2/Flu/RSV or Xpert Xpress SARS-CoV-2 only test should be correlated with the clinical history, epidemiological data, and other data available to the clinician evaluating the patient. Performance of the Xpert Xpress SARS-CoV-2/Flu/RSV or Xpert Xpress SARS-CoV-2 only test has only been established in nasopharyngeal swab specimens. Erroneous test results might occur from improper specimen collection; failure to follow the recommended sample collection, handling, and storage procedures; technical error; or sample mix-up.False negative results may occur if virus is present at levels below the analytical limit of detection. Viral nucleic acid may persist in vivo, independent of virus viability. Detection of analyte target(s) does not imply that the corresponding virus(es) are infectious or are the causative agents for clinical symptoms.Recent patient exposure to FluMist or other live attenuated influenza vaccines may cause inaccurate positive results. Performed By: #### A DIFF, TROPHS, GFR, BMP, MDW, CBC, PBNP, ANEU #### [id number] [place], [place] [address] LABORATORYOrdered By: Giovana Fischer on 06-13-2023 FLUAV RNA ROSE+probe Ql (Resp) Negative (06/13/23 12:24 AM) Normal Negative AH Auto Viro/Sero SS FLUBV RNA ROSE+probe Ql (Resp) Negative (06/13/23 12:24 AM) Normal Negative AH Auto Viro/Sero SS RSV PCR Negative (06/13/23 12:24 AM) Normal Negative AH Auto Viro/Sero SS SARS-CoV-2 (COVID-19) RNA ROSE+probe Ql (Resp) Negative 1 (06/13/23 12:24 AM) Normal Negative AH Auto Viro/Sero SS Comment on above: Interpretive Data: T his test has been authorized by FDA under an EUA for use by authorized laboratories and has not been FDA cleared or approved. Results from the Xpert Xpress SARS-CoV-2/Flu/RSV or Xpert Xpress SARS-CoV-2 only test should be correlated with the clinical history, epidemiological data, and other data available to the clinician evaluating the patient. Performance of the Xpert Xpress SARS-CoV-2/Flu/RSV or Xpert Xpress SARS-CoV-2 only test has only been established in nasopharyngeal swab specimens. Erroneous test results might occur from improper specimen collection; failure to follow the recommended sample collection, handling, and storage procedures; technical error; or sample mix-up.False negative results may occur if virus is present at levels below the analytical limit of detection. Viral nucleic acid may persist in vivo, independent of virus viability. Detection of analyte target(s) does not imply that the corresponding virus(es) are infectious or are the causative agents for clinical symptoms.Recent patient exposure to FluMist or other live attenuated influenza vaccines may cause inaccurate positive results. XR CHEST 1 VIEWon 06-13-2023 XR CHEST 1 VIEW ORIGINAL EXAMINATION: ONE XRAY VIEW OF THE CHEST 06/13/2023 12:35 am COMPARISON: Radiograph of the chest May 05, 2023 HISTORY: ORDERING SYSTEM PROVIDED HISTORY: Reason for Exam: SOB/cough/fever FINDINGS: Cardiomediastinal silhouette is unchanged in size. Costophrenic angles are sharp. No radiographic pneumothorax. No definite focal consolidation. Osseous structures grossly unchanged. IMPRESSION: Suboptimal exam due to patient body habitus. No definite focal consolidation. Interpreted by: Trace Fierro Preliminary Report By: Trace Fierro Electronically signed By Trace Fierro Dictated Date: 06/13/2023 12:39:17 AM Prelim Date: 06/13/2023 12:39:50 AM Sign Date: 06/13/2023 12:39:50 AM Ordering Provider: DEMI Kate [facility] ([place]) .Auto Diffon 06-09-2023 Basophil, Absolute 0.1 10 3/mcL Normal 0.0-0.3 [facility] ([place]) Comment on above: Performed By: #### A DIFF, TROPHS, GFR, BMP, MDW, CBC, PBNP, ANEU #### [address] [address] Basophils/100 WBC (Bld) 0.8 % Normal 0.0-2.5 [facility] ([place] Comment on above: Performed By: #### A DIFF, TROPHS, GFR, BMP, MDW, CBC, PBNP, ANEU #### [address] [address] Eosinophil, Absolute 0.1 10 3/mcL Normal 0.0-0.7 [facility] ([place]) Comment on above: Performed By: #### A DIFF, TROPHS, GFR, BMP, MDW, CBC, PBNP, ANEU #### [address] [address] Eosinophils/100 WBC (Bld) 2.0 % Normal 0.0-6.0 [facility] ([place] Comment on above: Performed By: #### A DIFF, TROPHS, GFR, BMP, MDW, CBC, PBNP, ANEU #### [address] [address] Lymphocyte, Absolute 1.0 10 3/mcL Normal 0.9-4.3 [facility] ([place] Comment on above: Performed By: #### A DIFF, TROPHS, GFR, BMP, MDW, CBC, PBNP, ANEU #### [address] [address] Lymphocytes/100 WBC (Bld) 15.5 % Low 20.0-40.0 [facility] ([place] Comment on above: Performed By: #### A DIFF, TROPHS, GFR, BMP, MDW, CBC, PBNP, ANEU #### [address] [address] Monocyte, Absolute 0.7 10 3/mcL Normal 0.1-1.4 [facility] ([place] Comment on above: Performed By: #### A DIFF, TROPHS, GFR, BMP, MDW, CBC, PBNP, ANEU #### [address] [address] Monocytes/100 WBC (Bld) 11.1 % Normal 2.0-13.0 [facility] ([place] Comment on above: Performed By: #### A DIFF, TROPHS, GFR, BMP, MDW, CBC, PBNP, ANEU #### [address] [address] Neutrophils/100 WBC (Bld) 70.6 % Normal 50.0-75.0 [facility] ([place] Comment on above: Performed By: #### A DIFF, TROPHS, GFR, BMP, MDW, CBC, PBNP, ANEU #### [address] [address] .GFRon 06-09-2023 GFR Non- >60 Normal [facility] ([place] Comment on above: Result Comment: GFR Population mean for , Non- Americans Ages 20-29 = 116 mL/min/1.73 sq.m. Ages 30-39 = 107 mL/min/1.73 sq.m. Ages 40-49 = 99 mL/min/1.73 sq.m. Ages 50-59 = 93 mL/min/1.73 sq.m. Ages 60-69 = 85 mL/min/1.73 sq.m. Ages 70+ = 75 mL/min/1.73 sq.m. Chronic Kidney Disease: Less than 60 mL/min/1.73 square meters End Stage Renal Disease: Less than 15 mL/min/1.73 square meters Performed By: #### A DIFF, TROPHS, GFR, BMP, MDW, CBC, PBNP, ANEU #### [address] [address] GFR >60 Normal [facility] ([place]) Comment on above: Result Comment: GFR Population mean for , Non- Americans Ages 20-29 = 116 mL/min/1.73 sq.m. Ages 30-39 = 107 mL/min/1.73 sq.m. Ages 40-49 = 99 mL/min/1.73 sq.m. Ages 50-59 = 93 mL/min/1.73 sq.m. Ages 60-69 = 85 mL/min/1.73 sq.m. Ages 70+ = 75 mL/min/1.73 sq.m. Chronic Kidney Disease: Less than 60 mL/min/1.73 square meters End Stage Renal Disease: Less than 15 mL/min/1.73 square meters Performed By: #### A DIFF, TROPHS, GFR, BMP, MDW, CBC, PBNP, ANEU #### [address] [address] .NEUABSon 06-09-2023 Neutrophil, Absolute 4.7 10 3/mcL Normal 2.3-8.1 [facility] ([place]) Comment on above: Performed By: #### A DIFF, TROPHS, GFR, BMP, MDW, CBC, PBNP, ANEU #### [address] [address] BMPon 06-09-2023 BUN/Creatinine Ratio 11.8 ratio Normal 10.0-22.0 [facility] ([place] Comment on above: Performed By: #### A DIFF, TROPHS, GFR, BMP, MDW, CBC, PBNP, ANEU #### [address] [address] Calcium [Mass/Vol] 9.0 mg/dL Normal 8.7-10.4 [facility] [place] Comment on above: Performed By: #### A DIFF, TROPHS, GFR, BMP, MDW, CBC, PBNP, ANEU #### [address] [address] Chloride [Moles/Vol] 102 mmol/L Normal 98-110 [facility] ([place]) Comment on above: Performed By: #### A DIFF, TROPHS, GFR, BMP, MDW, CBC, PBNP, ANEU #### [address] [address] CO2 [Moles/Vol] 35 mmol/L High 22-32 [facility] ([place] Comment on above: Performed By: #### A DIFF, TROPHS, GFR, BMP, MDW, CBC, PBNP, ANEU #### [address] [address] Creatinine [Mass/Vol] 0.85 mg/dL Normal 0.60-1.40 [facility] ([place]) Comment on above: Performed By: #### A DIFF, TROPHS, GFR, BMP, MDW, CBC, PBNP, ANEU #### [address] [address] Electrolyte Balance 0.0 mEq/L Low 4.0-15.0 [facility] ([place]) Comment on above: Performed By: #### A DIFF, TROPHS, GFR, BMP, MDW, CBC, PBNP, ANEU #### [address] [address] Glucose [Mass/Vol] 146 mg/dL High 70-110 [facility] [place] Comment on above: Performed By: #### A DIFF, TROPHS, GFR, BMP, MDW, CBC, PBNP, ANEU #### [address] [address] Potassium [Moles/Vol] 4.8 mmol/L Normal 3.5-5.0 [facility] ([place]) Comment on above: Performed By: #### A DIFF, TROPHS, GFR, BMP, MDW, CBC, PBNP, ANEU #### [address] [address] Sodium [Moles/Vol] 137 mmol/L Normal 136-145 [facility] [place] Comment on above: Performed By: #### A DIFF, TROPHS, GFR, BMP, MDW, CBC, PBNP, ANEU #### [address] [address] Urea nitrogen [Mass/Vol] 10.0 mg/dL Normal 8.0-22.0 [facility] ([place] Comment on above: Result Comment: Spec imen hemolyzed. Results may be falsely elevated. Performed By: #### A DIFF, TROPHS, GFR, BMP, MDW, CBC, PBNP, ANEU #### [address] [address] CBCon 06-09-2023 Erythrocyte distribution width (RBC) [Ratio] 13.3 % Normal 11.5-15.5 [facility] ([place] Comment on above: Performed By: #### A DIFF, TROPHS, GFR, BMP, MDW, CBC, PBNP, ANEU #### [address] [address] Hematocrit (Bld) [Volume fraction] 45.9 % Normal 40.0-52.0 [facility] ([place] Comment on above: Performed By: #### A DIFF, TROPHS, GFR, BMP, MDW, CBC, PBNP, ANEU #### [address] [address] Hgb 15.6 G/dL Normal 13.0-17.5 [facility] ([place] Comment on above: Performed By: #### A DIFF, TROPHS, GFR, BMP, MDW, CBC, PBNP, ANEU #### [address] [address] MCH (RBC) [Entitic mass] 29.0 pg Normal 27.0-33.0 [facility] ([place] Comment on above: Performed By: #### A DIFF, TROPHS, GFR, BMP, MDW, CBC, PBNP, ANEU #### [address] [address] MCHC 33.9 G/dL Normal 32.0-36.0 [facility] ([place] Comment on above: Performed By: #### A DIFF, TROPHS, GFR, BMP, MDW, CBC, PBNP, ANEU #### [address] [address] MCV (RBC) [Entitic vol] 85.5 fL Normal 81.0-100.0 [facility] ([place] Comment on above: Performed By: #### A DIFF, TROPHS, GFR, BMP, MDW, CBC, PBNP, ANEU #### [address] [address] Platelet 174 10 3/mcL Normal 150-450 [facility] ([place] Comment on above: Performed By: #### A DIFF, TROPHS, GFR, BMP, MDW, CBC, PBNP, ANEU #### [address] [address] Platelet mean volume (Bld) [Entitic vol] 7.5 fL Normal 6.4-10.5 [facility] ([place] Comment on above: Performed By: #### A DIFF, TROPHS, GFR, BMP, MDW, CBC, PBNP, ANEU #### [address] [address] RBC 5.37 10 6/mcL Normal 4.50-6.00 [facility] ([place] Comment on above: Performed By: #### A DIFF, TROPHS, GFR, BMP, MDW, CBC, PBNP, ANEU #### [address] [address] WBC 6.6 10 3/mcL Normal 4.5-10.8 [facility] ([place] Comment on above: Performed By: #### A DIFF, TROPHS, GFR, BMP, MDW, CBC, PBNP, ANEU #### [address] [place], [place] [address] LABORATORYOrdered By: Adenike Swain on 06-09-2023 Blood Glucose Testing Reason Routine (06/09/23 4:18 PM) [facility] Glucose [Mass/Vol] 114 mg/dL High 70 - 110 mg/dL [facility] LABORATORYOrdered By: Cris Jang on 06-09-2023 Blood Glucose Testing Reason Routine (06/09/23 7:51 AM) [facility] Glucose [Mass/Vol] 142 mg/dL High 70 - 110 mg/dL [facility] LABORATORYOrdered By: SYSTEM SYSTEM on 06-09-2023 Basophils (Bld) [#/Vol] 0.1 103/mcL Normal 0.0 - 0.3 10^3/mcL AH Workflow SS Basophils/100 WBC (Bld) 0.8 % Normal 0.0 - 2.5 % AH Workflow SS Calcium [Mass/Vol] 9.0 mg/dL Normal 8.7 - 10. 4 mg/dL ADM SS Chloride [Moles/Vol] 102 mmol/L Normal 98 - 11 0 mEq/L AH ADM SS CO2 [Moles/Vol] 35 mmol/L High 22 - 32 mEq/L ADM SS Creatinine [Mass/Vol] 0.85 mg/dL Normal 0.60 - 1.40 mg/dL AH ADM SS Electrolyte Balance 0.0 mEq/L Low 4.0 - 15 .0 mEq/L ADM SS Eosinophils (Bld) [#/Vol] 0.1 103/mcL Normal 0.0 - 0.7 10^3/mcL AH Workflow SS Eosinophils/100 WBC (Bld) 2.0 % Normal 0.0 - 6.0 % AH Workflow SS Erythrocyte distribution width (RBC) [Ratio] 13.3 % Normal 11.5 - 15.5 % AH Workflow SS GFR/1.73 sq M.predicted among blacks MDRD (S/P/Bld) [Vol rate/Area] ml/min/1.73sqm Invalid Interpretation Code AH ADM SS Comment on above: Interpretive Data: GFR Population mean for , Non- Americans Ages 20-29 = 116 mL/min/1.73 sq.m. Ages 30-39 = 107 mL/min/1.73 sq.m. Ages 40-49 = 99 mL/min/1.73 sq.m. Ages 50-59 = 93 mL/min/1.73 sq.m. Ages 60-69 = 85 mL/min/1.73 sq.m. Ages 70+ = 75 mL/min/1.73 sq.m. Chronic Kidney Disease: Less than 60 mL/min/1.73 square meters End Stage Renal Disease: Less than 15 mL/min/1.73 square meters GFR/1.73 sq M.predicted among non-blacks MDRD (S/P/Bld) [Vol rate/Area] ml/min/1.73sqm Invalid Interpretation Code ADM SS Comment on above: Interpretive Data: GFR Population mean for , Non- Americans Ages 20-29 = 116 mL/min/1.73 sq.m. Ages 30-39 = 107 mL/min/1.73 sq.m. Ages 40-49 = 99 mL/min/1.73 sq.m. Ages 50-59 = 93 mL/min/1.73 sq.m. Ages 60-69 = 85 mL/min/1.73 sq.m. Ages 70+ = 75 mL/min/1.73 sq.m. Chronic Kidney Disease: Less than 60 mL/min/1.73 square meters End Stage Renal Disease: Less than 15 mL/min/1.73 square meters Glucose [Mass/Vol] 146 mg/dL High 70 - 110 mg/dL ADM SS Hematocrit (Bld) [Volume fraction] 45.9 % Normal 40.0 - 52.0 % AH Workflow SS Hemoglobin (Bld) [Mass/Vol] 15.6 G/dL Normal 13.0 - 17.5 G/dL AH Workflow SS Lymphocytes (Bld) [#/Vol] 1.0 103/mcL Normal 0.9 - 4.3 10^3/mcL AH Workflow SS Lymphocytes/100 WBC (Bld) 15.5 % Low 20.0 - 40.0 % AH Workflow SS Magnesium [Mass/Vol] 2.1 mg/dL Normal 1.6 - 2 .4 mg/dL AH ADM SS MCH (RBC) [Entitic mass] 29.0 pg Normal 27.0 - 33.0 pg AH Workflow SS MCHC 33.9 G/dL Normal 32.0 - 36.0 G/dL AH Workflow SS MCV (RBC) [Entitic vol] 85.5 fL Normal 81.0 - 100.0 fL AH Workflow SS Monocytes (Bld) [#/Vol] 0.7 103/mcL Normal 0.1 - 1.4 10^3/mcL AH Workflow SS Monocytes/100 WBC (Bld) 11.1 % Normal 2.0 - 13.0 % AH Workflow SS Neutrophils (Bld) [#/Vol] 4.7 103/mcL Normal 2.3 - 8.1 10^3/mcL AH Workflow SS Neutrophils/100 WBC (Bld) 70.6 % Normal 50.0 - 75.0 % AH Workflow SS Platelet mean volume (Bld) [Entitic vol] 7.5 fL Normal 6.4 - 10.5 fL AH Workflow SS Platelets (Bld) [#/Vol] 174 103/mcL Normal 150 - 450 10^3/mcL AH Workflow SS Potassium [Moles/Vol] 4.8 mmol/L Normal 3.5 - 5.0 mEq/L ADM SS RBC (Bld) [#/Vol] 5.37 106/mcL Normal 4.50 - 6.0 0 10^6/mcL AH Workflow SS Sodium [Moles/Vol] 137 mmol/L Normal 136 - 145 mEq/L ADM SS Urea nitrogen [Mass/Vol] 10.0 mg/dL Normal 8.0 - 22.0 mg/dL ADM SS Comment on above: Result Comment: Spec imen hemolyzed. Results may be falsely elevated. Urea nitrogen/Creatinine [Mass ratio] 11.8 ratio Normal 10.0 - 22.0 ratio ADM SS WBC (Bld) [#/Vol] 6.6 103/mcL Normal 4.5 - 10.8 10^3/mcL Workflow SS MGon 06-09-2023 Magnesium [Mass/Vol] 2.1 mg/dL Normal 1.6-2.4 [facility] ([place]) Comment on above: Performed By: #### A DIFF, TROPHS, GFR, BMP, MDW, CBC, PBNP, ANEU #### Larry [address] [address] .Auto Diffon 06-08-2023 Basophil, Absolute 0.1 10 3/mcL Normal 0.0-0.3 [facility] ([place]) Comment on above: Performed By: #### A DIFF, TROPHS, GFR, BMP, MDW, CBC, PBNP, ANEU #### [address] [address] Basophils/100 WBC (Bld) 0.7 % Normal 0.0-2.5 [facility] ([place] Comment on above: Performed By: #### A DIFF, TROPHS, GFR, BMP, MDW, CBC, PBNP, ANEU #### [address] [address] Eosinophil, Absolute 0.1 10 3/mcL Normal 0.0-0.7 [facility] ([place] Comment on above: Performed By: #### A DIFF, TROPHS, GFR, BMP, MDW, CBC, PBNP, ANEU #### [address] [address] Eosinophils/100 WBC (Bld) 1.9 % Normal 0.0-6.0 [facility] ([place] Comment on above: Performed By: #### A DIFF, TROPHS, GFR, BMP, MDW, CBC, PBNP, ANEU #### [address] [address] Lymphocyte, Absolute 1.3 10 3/mcL Normal 0.9-4.3 [facility] ([place] Comment on above: Performed By: #### A DIFF, TROPHS, GFR, BMP, MDW, CBC, PBNP, ANEU #### [address] [address] Lymphocytes/100 WBC (Bld) 16.1 % Low 20.0-40.0 [facility] ([place] Comment on above: Performed By: #### A DIFF, TROPHS, GFR, BMP, MDW, CBC, PBNP, ANEU #### [address] [address] Monocyte, Absolute 0.8 10 3/mcL Normal 0.1-1.4 [facility] ([place]) Comment on above: Performed By: #### A DIFF, TROPHS, GFR, BMP, MDW, CBC, PBNP, ANEU #### [address] [address] Monocytes/100 WBC (Bld) 9.9 % Normal 2.0-13.0 [facility] ([place] Comment on above: Performed By: #### A DIFF, TROPHS, GFR, BMP, MDW, CBC, PBNP, ANEU #### [address] [address] Neutrophils/100 WBC (Bld) 71.4 % Normal 50.0-75.0 [facility] ([place] Comment on above: Performed By: #### A DIFF, TROPHS, GFR, BMP, MDW, CBC, PBNP, ANEU #### [address] [address] .GFRon 06-08-2023 GFR >60 Normal [facility] ([place]) Comment on above: Result Comment: GFR Population mean for , Non- Americans Ages 20-29 = 116 mL/min/1.73 sq.m. Ages 30-39 = 107 mL/min/1.73 sq.m. Ages 40-49 = 99 mL/min/1.73 sq.m. Ages 50-59 = 93 mL/min/1.73 sq.m. Ages 60-69 = 85 mL/min/1.73 sq.m. Ages 70+ = 75 mL/min/1.73 sq.m. Chronic Kidney Disease: Less than 60 mL/min/1.73 square meters End Stage Renal Disease: Less than 15 mL/min/1.73 square meters Performed By: #### A DIFF, TROPHS, GFR, BMP, MDW, CBC, PBNP, ANEU #### [address] [address] GFR Non- >60 Normal [facility] ([place] Comment on above: Result Comment: GFR Population mean for , Non- Americans Ages 20-29 = 116 mL/min/1.73 sq.m. Ages 30-39 = 107 mL/min/1.73 sq.m. Ages 40-49 = 99 mL/min/1.73 sq.m. Ages 50-59 = 93 mL/min/1.73 sq.m. Ages 60-69 = 85 mL/min/1.73 sq.m. Ages 70+ = 75 mL/min/1.73 sq.m. Chronic Kidney Disease: Less than 60 mL/min/1.73 square meters End Stage Renal Disease: Less than 15 mL/min/1.73 square meters Performed By: #### A DIFF, TROPHS, GFR, BMP, MDW, CBC, PBNP, ANEU #### [address] [address] .NEUABSon 06-08-2023 Neutrophil, Absolute 5.7 10 3/mcL Normal 2.3-8.1 [facility] ([place]) Comment on above: Performed By: #### A DIFF, TROPHS, GFR, BMP, MDW, CBC, PBNP, ANEU #### [address] [address] BMPon 06-08-2023 BUN/Creatinine Ratio 10.7 ratio Normal 10.0-22.0 [facility] ([place] Comment on above: Performed By: #### A DIFF, TROPHS, GFR, BMP, MDW, CBC, PBNP, ANEU #### [address] [address] Calcium [Mass/Vol] 8.9 mg/dL Normal 8.7-10.4 [facility] [place] Comment on above: Performed By: #### A DIFF, TROPHS, GFR, BMP, MDW, CBC, PBNP, ANEU #### [address] [address] Chloride [Moles/Vol] 100 mmol/L Normal 98-110 [facility] ([place] Comment on above: Performed By: #### A DIFF, TROPHS, GFR, BMP, MDW, CBC, PBNP, ANEU #### [address] [address] CO2 [Moles/Vol] 36 mmol/L High 22-32 [facility] ([place] Comment on above: Performed By: #### A DIFF, TROPHS, GFR, BMP, MDW, CBC, PBNP, ANEU #### [address] [address] Creatinine [Mass/Vol] 0.75 mg/dL Normal 0.60-1.40 [facility] ([place]) Comment on above: Performed By: #### A DIFF, TROPHS, GFR, BMP, MDW, CBC, PBNP, ANEU #### [address] [address] Electrolyte Balance 1.0 mEq/L Low 4.0-15.0 [facility] ([place]) Comment on above: Performed By: #### A DIFF, TROPHS, GFR, BMP, MDW, CBC, PBNP, ANEU #### [address] [address] Glucose [Mass/Vol] 160 mg/dL High 70-110 [facility] [place] Comment on above: Performed By: #### A DIFF, TROPHS, GFR, BMP, MDW, CBC, PBNP, ANEU #### [address] [address] Potassium [Moles/Vol] 3.4 mmol/L Low 3.5-5.0 [facility] ([place]) Comment on above: Result Comment: Spec imen slightly hemolyzed. Performed By: #### A DIFF, TROPHS, GFR, BMP, MDW, CBC, PBNP, ANEU #### [address] [address] Sodium [Moles/Vol] 137 mmol/L Normal 136-145 [facility] [place] Comment on above: Performed By: #### A DIFF, TROPHS, GFR, BMP, MDW, CBC, PBNP, ANEU #### [address] [address] Urea nitrogen [Mass/Vol] 8.0 mg/dL Normal 8.0-22.0 [facility] ([place] Comment on above: Performed By: #### A DIFF, TROPHS, GFR, BMP, MDW, CBC, PBNP, ANEU #### [address] [address] CBCon 06-08-2023 Erythrocyte distribution width (RBC) [Ratio] 13.1 % Normal 11.5-15.5 [facility] ([place] Comment on above: Performed By: #### A DIFF, TROPHS, GFR, BMP, MDW, CBC, PBNP, ANEU #### [address] [address] Hematocrit (Bld) [Volume fraction] 45.7 % Normal 40.0-52.0 [facility] ([place] Comment on above: Performed By: #### A DIFF, TROPHS, GFR, BMP, MDW, CBC, PBNP, ANEU #### [address] [address] Hgb 15.6 G/dL Normal 13.0-17.5 [facility] ([place] Comment on above: Performed By: #### A DIFF, TROPHS, GFR, BMP, MDW, CBC, PBNP, ANEU #### [address] [address] MCH (RBC) [Entitic mass] 29.1 pg Normal 27.0-33.0 [facility] ([place] Comment on above: Performed By: #### A DIFF, TROPHS, GFR, BMP, MDW, CBC, PBNP, ANEU #### [address] [address] MCHC 34.3 G/dL Normal 32.0-36.0 [facility] ([place] Comment on above: Performed By: #### A DIFF, TROPHS, GFR, BMP, MDW, CBC, PBNP, ANEU #### [address] [address] MCV (RBC) [Entitic vol] 85.0 fL Normal 81.0-100.0 [facility] ([place] Comment on above: Performed By: #### A DIFF, TROPHS, GFR, BMP, MDW, CBC, PBNP, ANEU #### [address] [address] Platelet 200 10 3/mcL Normal 150-450 [facility] ([place] Comment on above: Performed By: #### A DIFF, TROPHS, GFR, BMP, MDW, CBC, PBNP, ANEU #### [address] [address] Platelet mean volume (Bld) [Entitic vol] 7.5 fL Normal 6.4-10.5 [facility] ([place] Comment on above: Performed By: #### A DIFF, TROPHS, GFR, BMP, MDW, CBC, PBNP, ANEU #### [address] [address] RBC 5.37 10 6/mcL Normal 4.50-6.00 [facility] ([place] Comment on above: Performed By: #### A DIFF, TROPHS, GFR, BMP, MDW, CBC, PBNP, ANEU #### [address] [address] WBC 7.9 10 3/mcL Normal 4.5-10.8 [facility] ([place] Comment on above: Performed By: #### A DIFF, TROPHS, GFR, BMP, MDW, CBC, PBNP, ANEU #### [address] [address] LABORATORYOrdered By: Adenike Swain on 06-08-2023 Blood Glucose Testing Reason Routine (06/08/23 9:18 PM) [facility] Glucose [Mass/Vol] 173 mg/dL High 70 - 110 mg/dL [facility] LABORATORYOrdered By: SYSTEM SYSTEM on 06-08-2023 Basophils (Bld) [#/Vol] 0.1 103/mcL Normal 0.0 - 0.3 10^3/mcL AH Workflow SS Basophils/100 WBC (Bld) 0.7 % Normal 0.0 - 2.5 % AH Workflow SS Calcium [Mass/Vol] 8.9 mg/dL Normal 8.7 - 10. 4 mg/dL AH ADM SS Chloride [Moles/Vol] 100 mmol/L Normal 98 - 11 0 mEq/L ADM SS CO2 [Moles/Vol] 36 mmol/L High 22 - 32 mEq/L ADM SS Creatinine [Mass/Vol] 0.75 mg/dL Normal 0.60 - 1.40 mg/dL ADM SS Electrolyte Balance 1.0 mEq/L Low 4.0 - 15 .0 mEq/L ADM SS Eosinophils (Bld) [#/Vol] 0.1 103/mcL Normal 0.0 - 0.7 10^3/mcL Workflow SS Eosinophils/100 WBC (Bld) 1.9 % Normal 0.0 - 6.0 % Workflow SS Erythrocyte distribution width (RBC) [Ratio] 13.1 % Normal 11.5 - 15.5 % Workflow SS GFR/1.73 sq M.predicted among blacks MDRD (S/P/Bld) [Vol rate/Area] ml/min/1.73sqm Invalid Interpretation Code ADM SS Comment on above: Interpretive Data: GFR Population mean for , Non- Americans Ages 20-29 = 116 mL/min/1.73 sq.m. Ages 30-39 = 107 mL/min/1.73 sq.m. Ages 40-49 = 99 mL/min/1.73 sq.m. Ages 50-59 = 93 mL/min/1.73 sq.m. Ages 60-69 = 85 mL/min/1.73 sq.m. Ages 70+ = 75 mL/min/1.73 sq.m. Chronic Kidney Disease: Less than 60 mL/min/1.73 square meters End Stage Renal Disease: Less than 15 mL/min/1.73 square meters GFR/1.73 sq M.predicted among non-blacks MDRD (S/P/Bld) [Vol rate/Area] ml/min/1.73sqm Invalid Interpretation Code ADM SS Comment on above: Interpretive Data: GFR Population mean for , Non- Americans Ages 20-29 = 116 mL/min/1.73 sq.m. Ages 30-39 = 107 mL/min/1.73 sq.m. Ages 40-49 = 99 mL/min/1.73 sq.m. Ages 50-59 = 93 mL/min/1.73 sq.m. Ages 60-69 = 85 mL/min/1.73 sq.m. Ages 70+ = 75 mL/min/1.73 sq.m. Chronic Kidney Disease: Less than 60 mL/min/1.73 square meters End Stage Renal Disease: Less than 15 mL/min/1.73 square meters Glucose [Mass/Vol] 160 mg/dL High 70 - 110 mg/dL AH ADM SS Hematocrit (Bld) [Volume fraction] 45.7 % Normal 40.0 - 52.0 % AH Workflow SS Hemoglobin (Bld) [Mass/Vol] 15.6 G/dL Normal 13.0 - 17.5 G/dL AH Workflow SS Lymphocytes (Bld) [#/Vol] 1.3 103/mcL Normal 0.9 - 4.3 10^3/mcL AH Workflow SS Lymphocytes/100 WBC (Bld) 16.1 % Low 20.0 - 40.0 % AH Workflow SS Magnesium [Mass/Vol] 2.1 mg/dL Normal 1.6 - 2 .4 mg/dL ADM SS MCH (RBC) [Entitic mass] 29.1 pg Normal 27.0 - 33.0 pg AH Workflow SS MCHC 34.3 G/dL Normal 32.0 - 36.0 G/dL AH Workflow SS MCV (RBC) [Entitic vol] 85.0 fL Normal 81.0 - 100.0 fL AH Workflow SS Monocytes (Bld) [#/Vol] 0.8 103/mcL Normal 0.1 - 1.4 10^3/mcL AH Workflow SS Monocytes/100 WBC (Bld) 9.9 % Normal 2.0 - 13.0 % AH Workflow SS Neutrophils (Bld) [#/Vol] 5.7 103/mcL Normal 2.3 - 8.1 10^3/mcL AH Workflow SS Neutrophils/100 WBC (Bld) 71.4 % Normal 50.0 - 75.0 % AH Workflow SS Platelet mean volume (Bld) [Entitic vol] 7.5 fL Normal 6.4 - 10.5 fL AH Workflow SS Platelets (Bld) [#/Vol] 200 103/mcL Normal 150 - 450 10^3/mcL AH Workflow SS Potassium [Moles/Vol] 3.4 mmol/L Low 3.5 - 5.0 mEq/L ADM SS Comment on above: Result Comment: Spec imen slightly hemolyzed. RBC (Bld) [#/Vol] 5.37 106/mcL Normal 4.50 - 6.0 0 10^6/mcL AH Workflow SS Sodium [Moles/Vol] 137 mmol/L Normal 136 - 145 mEq/L AH ADM SS Urea nitrogen [Mass/Vol] 8.0 mg/dL Normal 8.0 - 22.0 mg/dL AH ADM SS Urea nitrogen/Creatinine [Mass ratio] 10.7 ratio Normal 10.0 - 22.0 ratio AH ADM SS WBC (Bld) [#/Vol] 7.9 103/mcL Normal 4.5 - 10.8 10^3/mcL AH Workflow SS MGon 06-08-2023 Magnesium [Mass/Vol] 2.1 mg/dL Normal 1.6-2.4 [facility] ([place]) Comment on above: Performed By: #### A DIFF, TROPHS, GFR, BMP, MDW, CBC, PBNP, ANEU #### [address] [address] .Auto Diffon 06-07-2023 Basophil, Absolute 0.1 10 3/mcL Normal 0.0-0.3 [facility] ([place]) Comment on above: Performed By: #### A DIFF, TROPHS, GFR, BMP, MDW, CBC, PBNP, ANEU #### [address] [address] Basophils/100 WBC (Bld) 0.6 % Normal 0.0-2.5 [facility] ([place]) Comment on above: Performed By: #### A DIFF, TROPHS, GFR, BMP, MDW, CBC, PBNP, ANEU #### [address] [address] Eosinophil, Absolute 0.2 10 3/mcL Normal 0.0-0.7 [facility] ([place]) Comment on above: Performed By: #### A DIFF, TROPHS, GFR, BMP, MDW, CBC, PBNP, ANEU #### [address] [address] Eosinophils/100 WBC (Bld) 1.6 % Normal 0.0-6.0 [facility] ([place] Comment on above: Performed By: #### A DIFF, TROPHS, GFR, BMP, MDW, CBC, PBNP, ANEU #### [address] [address] Lymphocyte, Absolute 1.4 10 3/mcL Normal 0.9-4.3 [facility] ([place]) Comment on above: Performed By: #### A DIFF, TROPHS, GFR, BMP, MDW, CBC, PBNP, ANEU #### [address] [address] Lymphocytes/100 WBC (Bld) 14.0 % Low 20.0-40.0 [facility] ([place] Comment on above: Performed By: #### A DIFF, TROPHS, GFR, BMP, MDW, CBC, PBNP, ANEU #### [address] [address] Monocyte, Absolute 0.6 10 3/mcL Normal 0.1-1.4 [facility] ([place]) Comment on above: Performed By: #### A DIFF, TROPHS, GFR, BMP, MDW, CBC, PBNP, ANEU #### [address] [address] Monocytes/100 WBC (Bld) 6.4 % Normal 2.0-13.0 [facility] ([place] Comment on above: Performed By: #### A DIFF, TROPHS, GFR, BMP, MDW, CBC, PBNP, ANEU #### [address] [address] Neutrophils/100 WBC (Bld) 77.4 % High 50.0-75.0 [facility] ([place] Comment on above: Performed By: #### A DIFF, TROPHS, GFR, BMP, MDW, CBC, PBNP, ANEU #### [address] [address] .GFRon 06-07-2023 GFR >60 Normal [facility] ([place]) Comment on above: Result Comment: GFR Population mean for , Non- Americans Ages 20-29 = 116 mL/min/1.73 sq.m. Ages 30-39 = 107 mL/min/1.73 sq.m. Ages 40-49 = 99 mL/min/1.73 sq.m. Ages 50-59 = 93 mL/min/1.73 sq.m. Ages 60-69 = 85 mL/min/1.73 sq.m. Ages 70+ = 75 mL/min/1.73 sq.m. Chronic Kidney Disease: Less than 60 mL/min/1.73 square meters End Stage Renal Disease: Less than 15 mL/min/1.73 square meters Performed By: #### A DIFF, TROPHS, GFR, BMP, MDW, CBC, PBNP, ANEU #### [address] [address] GFR Non- >60 Normal [facility] ([place]) Comment on above: Result Comment: GFR Population mean for , Non- Americans Ages 20-29 = 116 mL/min/1.73 sq.m. Ages 30-39 = 107 mL/min/1.73 sq.m. Ages 40-49 = 99 mL/min/1.73 sq.m. Ages 50-59 = 93 mL/min/1.73 sq.m. Ages 60-69 = 85 mL/min/1.73 sq.m. Ages 70+ = 75 mL/min/1.73 sq.m. Chronic Kidney Disease: Less than 60 mL/min/1.73 square meters End Stage Renal Disease: Less than 15 mL/min/1.73 square meters Performed By: #### A DIFF, TROPHS, GFR, BMP, MDW, CBC, PBNP, ANEU #### [address] [address] .NEUABSon 06-07-2023 Neutrophil, Absolute 7.7 10 3/mcL Normal 2.3-8.1 [facility] ([place]) Comment on above: Performed By: #### A DIFF, TROPHS, GFR, BMP, MDW, CBC, PBNP, ANEU #### [address] [address] CBCon 06-07-2023 Erythrocyte distribution width (RBC) [Ratio] 14.0 % Normal 11.5-15.5 [facility] ([place] Comment on above: Performed By: #### A DIFF, TROPHS, GFR, BMP, MDW, CBC, PBNP, ANEU #### [place] [address] Hematocrit (Bld) [Volume fraction] 47.6 % Normal 40.0-52.0 [facility] ([place] Comment on above: Performed By: #### A DIFF, TROPHS, GFR, BMP, MDW, CBC, PBNP, ANEU #### [place] [address] Hgb 16.3 G/dL Normal 13.0-17.5 [facility] ([place] Comment on above: Performed By: #### A DIFF, TROPHS, GFR, BMP, MDW, CBC, PBNP, ANEU #### [place] [address] MCH (RBC) [Entitic mass] 29.1 pg Normal 27.0-33.0 [facility] ([place] Comment on above: Performed By: #### A DIFF, TROPHS, GFR, BMP, MDW, CBC, PBNP, ANEU #### [place] [address] MCHC 34.2 G/dL Normal 32.0-36.0 [facility] ([place] Comment on above: Performed By: #### A DIFF, TROPHS, GFR, BMP, MDW, CBC, PBNP, ANEU #### [place] [address] MCV (RBC) [Entitic vol] 84.9 fL Normal 81.0-100.0 [facility] ([place] Comment on above: Performed By: #### A DIFF, TROPHS, GFR, BMP, MDW, CBC, PBNP, ANEU #### [place] [address] Platelet 228 10 3/mcL Normal 150-450 [facility] ([place] Comment on above: Performed By: #### A DIFF, TROPHS, GFR, BMP, MDW, CBC, PBNP, ANEU #### [place] [address] Platelet mean volume (Bld) [Entitic vol] 8.0 fL Normal 6.4-10.5 [facility] ([place] Comment on above: Performed By: #### A DIFF, TROPHS, GFR, BMP, MDW, CBC, PBNP, ANEU #### [address] [address] RBC 5.61 10 6/mcL Normal 4.50-6.00 [facility] ([place] Comment on above: Performed By: #### A DIFF, TROPHS, GFR, BMP, MDW, CBC, PBNP, ANEU #### [address] [address] WBC 9.9 10 3/mcL Normal 4.5-10.8 [facility] ([place] Comment on above: Performed By: #### A DIFF, TROPHS, GFR, BMP, MDW, CBC, PBNP, ANEU #### [address] [address] CMPon 06-07-2023 Albumin Level 3.3 G/dL Normal 3.2-4.8 [facility] ([place] Comment on above: Order Comment: hemol yzed. needs redrawn Performed By: #### A DIFF, TROPHS, GFR, BMP, MDW, CBC, PBNP, ANEU #### [address] [address] Albumin/Globulin [Mass ratio] 0.9 {ratio} Normal 0.9-1.6 [facility] ([place] Comment on above: Order Comment: hemol yzed. needs redrawn Performed By: #### A DIFF, TROPHS, GFR, BMP, MDW, CBC, PBNP, ANEU #### [place] [address] ALP [Catalytic activity/Vol] 93 U/L Normal 38-126 [facility] ([place] Comment on above: Order Comment: hemol yzed. needs redrawn Performed By: #### A DIFF, TROPHS, GFR, BMP, MDW, CBC, PBNP, ANEU #### [address] [address] ALT [Catalytic activity/Vol] 13 U/L Normal 12-55 [facility] ([place] Comment on above: Order Comment: hemol yzed. needs redrawn Performed By: #### A DIFF, TROPHS, GFR, BMP, MDW, CBC, PBNP, ANEU #### [address] [address] AST [Catalytic activity/Vol] 13 U/L Normal 8-34 [facility] ([place] Comment on above: Order Comment: hemol yzed. needs redrawn Performed By: #### A DIFF, TROPHS, GFR, BMP, MDW, CBC, PBNP, ANEU #### [address] [address] Bili Total 0.30 mg/dL Normal 0.20-1.20 [facility] ([place]) Comment on above: Order Comment: hemol yzed. needs redrawn Result Comment: Use of this assay is not recommended for patients undergoing treatment with eltrombopag due to the potential for falsely elevated results. Performed By: #### A DIFF, TROPHS, GFR, BMP, MDW, CBC, PBNP, ANEU #### [address] [address] BUN/Creatinine Ratio 10.8 ratio Normal 10.0-22.0 [facility] ([place]) Comment on above: Order Comment: hemol yzed. needs redrawn Performed By: #### A DIFF, TROPHS, GFR, BMP, MDW, CBC, PBNP, ANEU #### [address] [address] Calcium [Mass/Vol] 8.8 mg/dL Normal 8.7-10.4 [facility] [place] Comment on above: Order Comment: hemol yzed. needs redrawn Performed By: #### A DIFF, TROPHS, GFR, BMP, MDW, CBC, PBNP, ANEU #### [address] [address] Chloride [Moles/Vol] 97 mmol/L Low 98-110 [facility] ([place] Comment on above: Order Comment: hemol yzed. needs redrawn Performed By: #### A DIFF, TROPHS, GFR, BMP, MDW, CBC, PBNP, ANEU #### [address] [address] CO2 [Moles/Vol] 37 mmol/L High 22-32 [facility] ([place] Comment on above: Order Comment: hemol yzed. needs redrawn Performed By: #### A DIFF, TROPHS, GFR, BMP, MDW, CBC, PBNP, ANEU #### [address] [address] Creatinine [Mass/Vol] 0.93 mg/dL Normal 0.60-1.40 [facility] ([place]) Comment on above: Order Comment: hemol yzed. needs redrawn Performed By: #### A DIFF, TROPHS, GFR, BMP, MDW, CBC, PBNP, ANEU #### [address] [address] Electrolyte Balance 3.0 mEq/L Low 4.0-15.0 [facility] ([place]) Comment on above: Order Comment: hemol yzed. needs redrawn Performed By: #### A DIFF, TROPHS, GFR, BMP, MDW, CBC, PBNP, ANEU #### [address] [address] Globulin 3.6 G/dL Normal 1.5-3.8 [facility] ([place] Comment on above: Order Comment: hemol yzed. needs redrawn Performed By: #### A DIFF, TROPHS, GFR, BMP, MDW, CBC, PBNP, ANEU #### [address] [address] Glucose [Mass/Vol] 209 mg/dL High 70-110 [facility] [place] Comment on above: Order Comment: hemol yzed. needs redrawn Performed By: #### A DIFF, TROPHS, GFR, BMP, MDW, CBC, PBNP, ANEU #### [address] [address] Potassium [Moles/Vol] 3.6 mmol/L Normal 3.5-5.0 [facility] ([place]) Comment on above: Order Comment: hemol yzed. needs redrawn Result Comment: Spec imen slightly hemolyzed. Performed By: #### A DIFF, TROPHS, GFR, BMP, MDW, CBC, PBNP, ANEU #### [address] [address] Sodium [Moles/Vol] 137 mmol/L Normal 136-145 [facility] [place] Comment on above: Order Comment: hemol yzed. needs redrawn Performed By: #### A DIFF, TROPHS, GFR, BMP, MDW, CBC, PBNP, ANEU #### [address] [address] Total Protein 6.9 G/dL Normal 5.7-8.2 [facility] ([place] Comment on above: Order Comment: hemol yzed. needs redrawn Result Comment: No te - New Reference Range in effect 19 Performed By: #### A DIFF, TROPHS, GFR, BMP, MDW, CBC, PBNP, ANEU #### [address] [address] Urea nitrogen [Mass/Vol] 10.0 mg/dL Normal 8.0-22.0 [facility] ([place] Comment on above: Order Comment: hemol yzed. needs redrawn Performed By: #### A DIFF, TROPHS, GFR, BMP, MDW, CBC, PBNP, ANEU #### [address] [address] LABORATORYOrdered By: SYSTEM SYSTEM on 06-07-2023 Albumin BCP dye [Mass/Vol] 3.3 G/dL Normal 3.2 - 4.8 G/dL ADM SS Albumin/Globulin [Mass ratio] 0.9 {ratio} Normal 0.9 - 1.6 ratio ADM SS ALP [Catalytic activity/Vol] 93 U/L Normal 38 - 126 U/L ADM SS ALT No additional P-5'-P [Catalytic activity/Vol] 13 U/L Normal 12 - 55 U/L AH ADM SS AST [Catalytic activity/Vol] 13 U/L Normal 8 - 34 U/L AH ADM SS Bilirubin [Mass/Vol] 0.30 mg/dL Normal 0.20 - 1.20 mg/dL AH ADM SS Comment on above: Interpretive Data: U se of this assay is not recommended for patients undergoing treatment with eltrombopag due to the potential for falsely elevated results. Calcium [Mass/Vol] 8.8 mg/dL Normal 8.7 - 10. 4 mg/dL AH ADM SS Chloride [Moles/Vol] 97 mmol/L Low 98 - 11 0 mEq/L AH ADM SS CO2 [Moles/Vol] 37 mmol/L High 22 - 32 mEq/L AH ADM SS Creatinine [Mass/Vol] 0.93 mg/dL Normal 0.60 - 1.40 mg/dL ADM SS Electrolyte Balance 3.0 mEq/L Low 4.0 - 15 .0 mEq/L ADM SS GFR/1.73 sq M.predicted among blacks MDRD (S/P/Bld) [Vol rate/Area] ml/min/1.73sqm Invalid Interpretation Code AH ADM SS Comment on above: Interpretive Data: GFR Population mean for , Non- Americans Ages 20-29 = 116 mL/min/1.73 sq.m. Ages 30-39 = 107 mL/min/1.73 sq.m. Ages 40-49 = 99 mL/min/1.73 sq.m. Ages 50-59 = 93 mL/min/1.73 sq.m. Ages 60-69 = 85 mL/min/1.73 sq.m. Ages 70+ = 75 mL/min/1.73 sq.m. Chronic Kidney Disease: Less than 60 mL/min/1.73 square meters End Stage Renal Disease: Less than 15 mL/min/1.73 square meters GFR/1.73 sq M.predicted among non-blacks MDRD (S/P/Bld) [Vol rate/Area] ml/min/1.73sqm Invalid Interpretation Code AH ADM SS Comment on above: Interpretive Data: GFR Population mean for , Non- Americans Ages 20-29 = 116 mL/min/1.73 sq.m. Ages 30-39 = 107 mL/min/1.73 sq.m. Ages 40-49 = 99 mL/min/1.73 sq.m. Ages 50-59 = 93 mL/min/1.73 sq.m. Ages 60-69 = 85 mL/min/1.73 sq.m. Ages 70+ = 75 mL/min/1.73 sq.m. Chronic Kidney Disease: Less than 60 mL/min/1.73 square meters End Stage Renal Disease: Less than 15 mL/min/1.73 square meters Globulin 3.6 G/dL Normal 1.5 - 3.8 G/dL AH ADM SS Glucose [Mass/Vol] 209 mg/dL High 70 - 110 mg/dL AH ADM SS Magnesium [Mass/Vol] 1.7 mg/dL Normal 1.6 - 2 .4 mg/dL AH ADM SS Potassium [Moles/Vol] 3.6 mmol/L Normal 3.5 - 5.0 mEq/L ADM SS Comment on above: Result Comment: Spec imen slightly hemolyzed. Protein [Mass/Vol] 6.9 G/dL Normal 5.7 - 8.2 G/dL ADM SS Comment on above: Interpretive Data: * *Note - New Reference Range in effect 19 Sodium [Moles/Vol] 137 mmol/L Normal 136 - 145 mEq/L AH ADM SS Urea nitrogen [Mass/Vol] 10.0 mg/dL Normal 8.0 - 22.0 mg/dL AH ADM SS Urea nitrogen/Creatinine [Mass ratio] 10.8 ratio Normal 10.0 - 22.0 ratio AH ADM SS Basophils (Bld) [#/Vol] 0.1 103/mcL Normal 0.0 - 0.3 10^3/mcL AH Workflow SS Basophils/100 WBC (Bld) 0.6 % Normal 0.0 - 2.5 % AH Workflow SS Eosinophils (Bld) [#/Vol] 0.2 103/mcL Normal 0.0 - 0.7 10^3/mcL AH Workflow SS Eosinophils/100 WBC (Bld) 1.6 % Normal 0.0 - 6.0 % AH Workflow SS Erythrocyte distribution width (RBC) [Ratio] 14.0 % Normal 11.5 - 15.5 % AH Workflow SS Hematocrit (Bld) [Volume fraction] 47.6 % Normal 40.0 - 52.0 % AH Workflow SS Hemoglobin (Bld) [Mass/Vol] 16.3 G/dL Normal 13.0 - 17.5 G/dL AH Workflow SS Lymphocytes (Bld) [#/Vol] 1.4 103/mcL Normal 0.9 - 4.3 10^3/mcL AH Workflow SS Lymphocytes/100 WBC (Bld) 14.0 % Low 20.0 - 40.0 % AH Workflow SS MCH (RBC) [Entitic mass] 29.1 pg Normal 27.0 - 33.0 pg AH Workflow SS MCHC 34.2 G/dL Normal 32.0 - 36.0 G/dL AH Workflow SS MCV (RBC) [Entitic vol] 84.9 fL Normal 81.0 - 100.0 fL AH Workflow SS Monocytes (Bld) [#/Vol] 0.6 103/mcL Normal 0.1 - 1.4 10^3/mcL AH Workflow SS Monocytes/100 WBC (Bld) 6.4 % Normal 2.0 - 13.0 % AH Workflow SS Neutrophils (Bld) [#/Vol] 7.7 103/mcL Normal 2.3 - 8.1 10^3/mcL AH Workflow SS Neutrophils/100 WBC (Bld) 77.4 % High 50.0 - 75.0 % AH Workflow SS Platelet mean volume (Bld) [Entitic vol] 8.0 fL Normal 6.4 - 10.5 fL AH Workflow SS Platelets (Bld) [#/Vol] 228 103/mcL Normal 150 - 450 10^3/mcL AH Workflow SS RBC (Bld) [#/Vol] 5.61 106/mcL Normal 4.50 - 6.0 0 10^6/mcL AH Workflow SS WBC (Bld) [#/Vol] 9.9 103/mcL Normal 4.5 - 10.8 10^3/mcL AH Workflow SS MGon 06-07-2023 Magnesium [Mass/Vol] 1.7 mg/dL Normal 1.6-2.4 [facility] ([place]) Comment on above: Performed By: #### A DIFF, TROPHS, GFR, BMP, MDW, CBC, PBNP, ANEU #### Larry [address] [address] XR CHEST 1 VIEWon 05-05-2023 XR CHEST 1 VIEW ORIGINAL EXAMINATION: ONE XRAY VIEW OF THE CHEST 05/05/2023 7:54 pm COMPARISON: 10/27/2022. HISTORY: ORDERING SYSTEM PROVIDED HISTORY: Reason for Exam: Fall yesterday, right rib pain. SOB FINDINGS: Similar appearance to the cardiomediastinal silhouette. No focal consolidation. No large pleural effusion or pneumothorax. Low lung volumes. Bibasilar streaky airspace opacities/atelectasis. Similar appearing vascular markings. 5 mm right upper lobe nodule. Please see radiograph of the ribs performed same day. IMPRESSION: No focal consolidation. I have personally reviewed the images of this examination and agree with the resident's findings and interpretation. Interpreted by: Trace Fierro Preliminary Report By: Lesia Flannery Electronically signed By Trace Fierro Dictated Date: 05/05/2023 9:06:00 PM Prelim Date: 05/05/2023 9:09:28 PM Sign Date: 05/05/2023 9:17:04 PM Ordering Provider: DEMI HUSTON [facility] ([place]) XR RIBS 2 VIEWS RIGHTon XR RIBS 2 VIEWS RIGHT ORIGINAL EXAMINATION: 2 XRAY VIEWS OF THE RIGHT RIBS 05/05/2023 7:54 pm COMPARISON: None. HISTORY: ORDERING SYSTEM PROVIDED HISTORY: Reason for Exam: pain FINDINGS: No visible rib fracture. IMPRESSION: No visible rib fracture. Interpreted by: Trace Fierro Preliminary Report By: Trace Fierro Electronically signed By Trace Fierro Dictated Date: 05/05/2023 9:07:05 PM Prelim Date: 05/05/2023 9:08:30 PM Sign Date: 05/05/2023 9:08:30 PM Ordering Provider: DEMI HUSTON [facility] ([place]) PBNPon 03-22-2023 Natriuretic peptide B (Bld) [Mass/Vol] 378 pg/mL High 0-125 [facility] ([place]) Comment on above: Result Comment: NT-p roBNP results of less than 300 pg/mL effectively rules out acute congestive heart failure with 99% negative predictive value. Performed By: #### A DIFF, TROPHS, GFR, BMP, MDW, CBC, PBNP, ANEU #### Larry [place] [address] [place], [place] [address] Influenza virus A and B and SARS-CoV-2 (COVID-19) Ag panel - Upper respiratory specimOrdered By: Nguyễn Al on 02-12-2023 SARS-CoV-2 (COVID-19) RNA ROSE+probe Ql (Resp) [facility] LABORATORYOrdered By: SYSTEM SYSTEM on 12-23-2022 Calcium [Mass/Vol] 9.2 mg/dL Invalid Interpretation Code 8.4 - 10.2 mg/dL AO ADM SS Chloride [Moles/Vol] 102 mmol/L Invalid Interpretation Code 98 - 107 mmol/L AO ADM SS CO2 [Moles/Vol] 35 mmol/L Invalid Interpretation Code 22 - 29 mmol/L AO ADM SS Creatinine [Mass/Vol] 0.94 mg/dL Invalid Interpretation Code 0.70 - 1.30 mg/dL AO ADM SS Electrolyte Balance 4.0 mEq/L Invalid Interpretation Code 4.0 - 15.0 mEq/L AO ADM SS GFR/1.73 sq M.predicted among blacks MDRD (S/P/Bld) [Vol rate/Area] 103 ml/min/1.73sqm Invalid Interpretation Code AO Chemistry S Comment on above: Interpretive Data: GFR Population mean for , Non- Americans Ages 20-29 = 116 mL/min/1.73 sq.m. Ages 30-39 = 107 mL/min/1.73 sq.m. Ages 40-49 = 99 mL/min/1.73 sq.m. Ages 50-59 = 93 mL/min/1.73 sq.m. Ages 60-69 = 85 mL/min/1.73 sq.m. Ages 70+ = 75 mL/min/1.73 sq.m. Chronic Kidney Disease: Less than 60 mL/min/1.73 square meters End Stage Renal Disease: Less than 15 mL/min/1.73 square meters GFR/1.73 sq M.predicted among non-blacks MDRD (S/P/Bld) [Vol rate/Area] 85 ml/min/1.73sqm Invalid Interpretation Code AO Chemistry S Comment on above: Interpretive Data: GFR Population mean for , Non- Americans Ages 20-29 = 116 mL/min/1.73 sq.m. Ages 30-39 = 107 mL/min/1.73 sq.m. Ages 40-49 = 99 mL/min/1.73 sq.m. Ages 50-59 = 93 mL/min/1.73 sq.m. Ages 60-69 = 85 mL/min/1.73 sq.m. Ages 70+ = 75 mL/min/1.73 sq.m. Chronic Kidney Disease: Less than 60 mL/min/1.73 square meters End Stage Renal Disease: Less than 15 mL/min/1.73 square meters Glucose [Mass/Vol] 145 mg/dL Invalid Interpretation Code 70 - 105 mg/dL AO ADM SS Potassium [Moles/Vol] 3.7 mmol/L Invalid Interpretation Code 3.5 - 5.1 mmol/L AO ADM SS Sodium [Moles/Vol] 141 mmol/L Invalid Interpretation Code 136 - 145 mmol/L AO ADM SS Urea nitrogen [Mass/Vol] 12 mg/dL Invalid Interpretation Code 7 - 18 mg/dL AO ADM SS Urea nitrogen/Creatinine [Mass ratio] 13 ratio Invalid Interpretation Code 7 - 27 ratio AO ADM SS LABORATORYOrdered By: SYSTEM SYSTEM on 11-11-2022 Calcium [Mass/Vol] 9.2 mg/dL Invalid Interpretation Code 8.4 - 10.2 mg/dL AO ADM SS Chloride [Moles/Vol] 99 mmol/L Invalid Interpretation Code 98 - 107 mmol/L AO ADM SS CO2 [Moles/Vol] 35 mmol/L Invalid Interpretation Code 22 - 29 mmol/L AO ADM SS Creatinine [Mass/Vol] 0.97 mg/dL Invalid Interpretation Code 0.70 - 1.30 mg/dL AO ADM SS Electrolyte Balance 3.0 mEq/L Invalid Interpretation Code 4.0 - 15.0 mEq/L AO ADM SS GFR/1.73 sq M.predicted among blacks MDRD (S/P/Bld) [Vol rate/Area] 99 ml/min/1.73sqm Invalid Interpretation Code AO Chemistry S GFR/1.73 sq M.predicted among non-blacks MDRD (S/P/Bld) [Vol rate/Area] 82 ml/min/1.73sqm Invalid Interpretation Code AO Chemistry S Glucose [Mass/Vol] 93 mg/dL Invalid Interpretation Code 70 - 105 mg/dL AO ADM SS Natriuretic peptide.B prohormone N-Terminal [Mass/Vol] 786 pg/mL Invalid Interpretation Code 0 - 125 pg/mL AO ADM SS Potassium [Moles/Vol] 4.4 mmol/L Invalid Interpretation Code 3.5 - 5.1 mmol/L AO ADM SS Sodium [Moles/Vol] 137 mmol/L Invalid Interpretation Code 136 - 145 mmol/L AO ADM SS TSH Qn 1.18 m[IU]/L Invalid Interpretation Code 0.36 - 3.74 mcIU/mL AO ADM SS Urea nitrogen [Mass/Vol] 12 mg/dL Invalid Interpretation Code 7 - 18 mg/dL AO ADM SS Urea nitrogen/Creatinine [Mass ratio] 12 ratio Invalid Interpretation Code 7 - 27 ratio AO ADM SS Uric Acid Lvl 6.6 mg/dL Invalid Interpretation Code 3.5 - 7.2 mg/dL AO ADM SS LABORATORYOrdered By: Zully Javier on 11-11-2022 Cholesterol [Mass/Vol] 171 mg/dL Invalid Interpretation Code 0 - 200 mg/dL AO ADM SS Cholesterol in HDL [Mass/Vol] 32 mg/dL Invalid Interpretation Code 40 - 60 mg/dL AO ADM SS Cholesterol in LDL [Mass/Vol] 114 mg/dL Invalid Interpretation Code 0 - 130 mg/dL AO ADM SS Triglyceride [Mass/Vol] 126 mg/dL Invalid Interpretation Code 0 - 150 mg/dL AO ADM SS LABORATORYOrdered By: Offerti SYSTEM on 10-27-2022 Albumin BCP dye [Mass/Vol] 3.5 G/dL Invalid Interpretation Code 3.5 - 5.0 G/dL AO ADM SS Albumin/Globulin [Mass ratio] 1.0 {ratio} Invalid Interpretation Code 1.1 - 2.5 ratio AO ADM SS ALP [Catalytic activity/Vol] 84 U/L Invalid Interpretation Code 40 - 135 U/L AO ADM SS ALT With P-5'-P [Catalytic activity/Vol] 18 U/L Invalid Interpretation Code 16 - 63 U/L AO ADM SS AST With P-5'-P [Catalytic activity/Vol] 13 U/L Invalid Interpretation Code 10 - 40 U/L AO ADM SS Bilirubin [Mass/Vol] 0.4 mg/dL Invalid Interpretation Code 0.2 - 1.0 mg/dL AO ADM SS Calcium [Mass/Vol] 8.6 mg/dL Invalid Interpretation Code 8.4 - 10.2 mg/dL AO ADM SS Chloride [Moles/Vol] 101 mmol/L Invalid Interpretation Code 98 - 107 mmol/L AO ADM SS CO2 [Moles/Vol] 34 mmol/L Invalid Interpretation Code 22 - 29 mmol/L AO ADM SS Creatinine [Mass/Vol] 0.92 mg/dL Invalid Interpretation Code 0.70 - 1.30 mg/dL AO ADM SS Electrolyte Balance 4.0 mEq/L Invalid Interpretation Code 4.0 - 15.0 mEq/L AO ADM SS GFR/1.73 sq M.predicted among blacks MDRD (S/P/Bld) [Vol rate/Area] 105 ml/min/1.73sqm Invalid Interpretation Code AO Chemistry S GFR/1.73 sq M.predicted among non-blacks MDRD (S/P/Bld) [Vol rate/Area] 87 ml/min/1.73sqm Invalid Interpretation Code AO Chemistry S Globulin 3.4 G/dL Invalid Interpretation Code AO ADM SS Glucose [Mass/Vol] 126 mg/dL Invalid Interpretation Code 70 - 105 mg/dL AO ADM SS Lipase [Catalytic activity/Vol] 17 U/L Invalid Interpretation Code 16 - 77 U/L AO ADM SS Potassium [Moles/Vol] 3.4 mmol/L Invalid Interpretation Code 3.5 - 5.1 mmol/L AO ADM SS Protein [Mass/Vol] 6.9 G/dL Invalid Interpretation Code 6.4 - 8.2 G/dL AO ADM SS Sodium [Moles/Vol] 139 mmol/L Invalid Interpretation Code 136 - 145 mmol/L AO ADM SS Troponin I.cardiac DL <= 0.01 ng/mL [Mass/Vol] 15.0 ng/L Invalid Interpretation Code 0.0 - 76.2 ng/L AO ADM SS Urea nitrogen [Mass/Vol] 8 mg/dL Invalid Interpretation Code 7 - 18 mg/dL AO ADM SS Urea nitrogen/Creatinine [Mass ratio] 9 ratio Invalid Interpretation Code 7 - 27 ratio AO ADM SS LABORATORYOrdered By: Jil Morales on 10-27-2022 Basophil, Absolute 0.1 103/mcL Invalid Interpretation Code 0.0 - 0.2 10^3/mcL AO Workflow SS Basophils/100 WBC (Bld) 0.7 % Invalid Interpretation Code 0.0 - 2.5 % AO Workflow SS Eosinophil, Absolute 0.2 103/mcL Invalid Interpretation Code 0.0 - 0.4 10^3/mcL AO Workflow SS Eosinophils/100 WBC (Bld) 2.1 % Invalid Interpretation Code 0.0 - 7.0 % AO Workflow SS Erythrocyte distribution width (RBC) [Ratio] 14.8 % Invalid Interpretation Code 11.5 - 14.5 % AO Workflow SS Hematocrit (Bld) [Volume fraction] 46.1 % Invalid Interpretation Code 42.0 - 52.0 % AO Workflow SS Hemoglobin (Bld) [Mass/Vol] 15.5 G/dL Invalid Interpretation Code 14.0 - 18.0 G/dL AO Workflow SS Lymphocyte, Absolute 1.4 103/mcL Invalid Interpretation Code 0.8 - 3.9 10^3/mcL AO Workflow SS Lymphocytes/100 WBC (Bld) 16.7 % Invalid Interpretation Code 10.0 - 50.0 % AO Workflow SS MCH (RBC) [Entitic mass] 28.4 pg Invalid Interpretation Code 27.0 - 31.2 pg AO Workflow SS MCHC 33.6 G/dL Invalid Interpretation Code 31.8 - 35.4 G/dL AO Workflow SS MCV (RBC) [Entitic vol] 84.4 fL Invalid Interpretation Code 80.0 - 94.0 fL AO Workflow SS Monocyte distribution width Auto (Bld) [Entitic vol] 19.04 Invalid Interpretation Code 0.00 - 20.00 AO Workflow SS Comment on above: Result Comment: For ED adult patients suspected of sepsis, MDW<=20.0 does not rule out sepsis or risk of sepsis Monocyte, Absolute 0.9 103/mcL Invalid Interpretation Code 0.2 - 1.0 10^3/mcL AO Workflow SS Monocytes/100 WBC (Bld) 10.5 % Invalid Interpretation Code 1.7 - 13.0 % AO Workflow SS Neutrophil, Absolute 5.7 103/mcL Invalid Interpretation Code 2.9 - 6.2 10^3/mcL AO Workflow SS Neutrophils/100 WBC (Bld) 70.0 % Invalid Interpretation Code 37.0 - 80.0 % AO Workflow SS Platelet mean volume (Bld) [Entitic vol] 7.4 fL Invalid Interpretation Code 7.4 - 10.4 fL AO Workflow SS Platelets (Bld) [#/Vol] 222 103/mcL Invalid Interpretation Code 130 - 400 10^3/mcL AO Workflow SS RBC (Bld) [#/Vol] 5.46 106/mcL Invalid Interpretation Code 4.04 - 6.13 10^6/mcL AO Workflow SS WBC (Bld) [#/Vol] 8.1 103/mcL Invalid Interpretation Code 4.6 - 10.8 10^3/mcL AO Workflow SS LABORATORYOrdered By: SYSTEM SYSTEM on 10-25-2022 Troponin I.cardiac DL <= 0.01 ng/mL [Mass/Vol] 15.5 ng/L Invalid Interpretation Code 0.0 - 76.2 ng/L AO ADM SS LABORATORYOrdered By: Jil Morales on 10-24-2022 Fibrin D-dimer DDU (PPP) [Mass/Vol] 519 ng/mL D-DU Invalid Interpretation Code 0 - 230 ng/mL D-DU AO HemoHub SS Basophil, Absolute 0.1 103/mcL Invalid Interpretation Code 0.0 - 0.2 10^3/mcL AO Workflow SS Basophils/100 WBC (Bld) 0.9 % Invalid Interpretation Code 0.0 - 2.5 % AO Workflow SS Eosinophil, Absolute 0.2 103/mcL Invalid Interpretation Code 0.0 - 0.4 10^3/mcL AO Workflow SS Eosinophils/100 WBC (Bld) 2.4 % Invalid Interpretation Code 0.0 - 7.0 % AO Workflow SS Erythrocyte distribution width (RBC) [Ratio] 14.5 % Invalid Interpretation Code 11.5 - 14.5 % AO Workflow SS Hematocrit (Bld) [Volume fraction] 48.1 % Invalid Interpretation Code 42.0 - 52.0 % AO Workflow SS Hemoglobin (Bld) [Mass/Vol] 16.2 G/dL Invalid Interpretation Code 14.0 - 18.0 G/dL AO Workflow SS Lymphocyte, Absolute 1.4 103/mcL Invalid Interpretation Code 0.8 - 3.9 10^3/mcL AO Workflow SS Lymphocytes/100 WBC (Bld) 17.0 % Invalid Interpretation Code 10.0 - 50.0 % AO Workflow SS MCH (RBC) [Entitic mass] 28.8 pg Invalid Interpretation Code 27.0 - 31.2 pg AO Workflow SS MCHC 33.7 G/dL Invalid Interpretation Code 31.8 - 35.4 G/dL AO Workflow SS MCV (RBC) [Entitic vol] 85.5 fL Invalid Interpretation Code 80.0 - 94.0 fL AO Workflow SS Monocyte distribution width Auto (Bld) [Entitic vol] 18.70 Invalid Interpretation Code 0.00 - 20.00 AO Workflow SS Comment on above: Result Comment: For ED adult patients suspected of sepsis, MDW<=20.0 does not rule out sepsis or risk of sepsis Monocyte, Absolute 0.8 103/mcL Invalid Interpretation Code 0.2 - 1.0 10^3/mcL AO Workflow SS Monocytes/100 WBC (Bld) 9.6 % Invalid Interpretation Code 1.7 - 13.0 % AO Workflow SS Neutrophil, Absolute 5.7 103/mcL Invalid Interpretation Code 2.9 - 6.2 10^3/mcL AO Workflow SS Neutrophils/100 WBC (Bld) 70.1 % Invalid Interpretation Code 37.0 - 80.0 % AO Workflow SS Platelet mean volume (Bld) [Entitic vol] 7.8 fL Invalid Interpretation Code 7.4 - 10.4 fL AO Workflow SS Platelets (Bld) [#/Vol] 218 103/mcL Invalid Interpretation Code 130 - 400 10^3/mcL AO Workflow SS RBC (Bld) [#/Vol] 5.63 106/mcL Invalid Interpretation Code 4.04 - 6.13 10^6/mcL AO Workflow SS WBC (Bld) [#/Vol] 8.1 103/mcL Invalid Interpretation Code 4.6 - 10.8 10^3/mcL AO Workflow SS LABORATORYOrdered By: SYSTEM SYSTEM on 10-24-2022 Natriuretic peptide.B prohormone N-Terminal [Mass/Vol] 2029 pg/mL Invalid Interpretation Code 0 - 125 pg/mL AO ADM SS Troponin I.cardiac DL <= 0.01 ng/mL [Mass/Vol] 14.6 ng/L Invalid Interpretation Code 0.0 - 76.2 ng/L AO ADM SS Calcium [Mass/Vol] 8.8 mg/dL Invalid Interpretation Code 8.4 - 10.2 mg/dL AO ADM SS Chloride [Moles/Vol] 100 mmol/L Invalid Interpretation Code 98 - 107 mmol/L AO ADM SS CO2 [Moles/Vol] 29 mmol/L Invalid Interpretation Code 22 - 29 mmol/L AO ADM SS Creatinine [Mass/Vol] 0.79 mg/dL Invalid Interpretation Code 0.70 - 1.30 mg/dL AO ADM SS Electrolyte Balance 10.0 mEq/L Invalid Interpretation Code 4.0 - 15.0 mEq/L AO ADM SS GFR/1.73 sq M.predicted among blacks MDRD (S/P/Bld) [Vol rate/Area] 125 ml/min/1.73sqm Invalid Interpretation Code AO Chemistry S GFR/1.73 sq M.predicted among non-blacks MDRD (S/P/Bld) [Vol rate/Area] 103 ml/min/1.73sqm Invalid Interpretation Code AO Chemistry S Glucose [Mass/Vol] 120 mg/dL Invalid Interpretation Code 70 - 105 mg/dL AO ADM SS Potassium [Moles/Vol] 3.6 mmol/L Invalid Interpretation Code 3.5 - 5.1 mmol/L AO ADM SS Sodium [Moles/Vol] 139 mmol/L Invalid Interpretation Code 136 - 145 mmol/L AO ADM SS Urea nitrogen [Mass/Vol] 15 mg/dL Invalid Interpretation Code 7 - 18 mg/dL AO ADM SS Urea nitrogen/Creatinine [Mass ratio] 19 ratio Invalid Interpretation Code 7 - 27 ratio AO ADM SS Absolute lymphocyte countOrd ered By: Dr. Brown on 10-23-2022 Lymphocytes Auto (Unsp spec) [#/Vol] 1.50 10*3/uL 0.83-4.51 [facility] Basophil percentageOrdered B y: Dr. Brown on 10-23-2022 Basophils/100 WBC (Bld) 0.8 % 0-1 [facility] Chloride [Moles/Vol] 102 mmol/L 98-107 [facility] Eosinophils/100 WBC (Bld) 2.4 % 0-5 [facility] Glucose [Mass/Vol] 126 mg/dL 74-106 [facility] Comment on above: Fasting Glucose resu lt greater than or equal to 126 mg/dL suggests DIABETES MELLITUS per A.D.A. criteria. Neutrophils (Bld) [#/Vol] 5.4 10*3/uL 2.0-7.7 [facility] Neutrophils/100 WBC (Bld) 67.9 % 47-70 [facility] Potassium [Moles/Vol] 3.2 mmol/L 3.5-5.1 [facility] Sodium [Moles/Vol] 140 mmol/L 136-145 [facility] WBC (Bld) [#/Vol] 7.9 10*3/uL 4.4-11.0 [facility] Blood erythrocytes count (nu mber/volume)Ordered By: Dr. Brown on 10-23-2022 RBC (Bld) [#/Vol] 6.06 10*6/uL 4.6-6.2 [facility] Blood hemoglobin measurement (mass/volume)Ordered By: Dr. Brown on 10-23-2022 Hemoglobin (Bld) [Mass/Vol] 17.2 g/dL 13.0-16.5 [facility] Blood lymphocytes/100 leukoc ytesOrdered By: Dr. Brown on 10-23-2022 Lymphocytes/100 WBC (Bld) 19.0 % 19-41 [facility] Blood monocytes/100 leukocyt esOrdered By: Dr. Brown on 10-23-2022 Monocytes/100 WBC (Bld) 9.6 % 0-10 [facility] Blood platelet mean volumeOr dered By: Dr. Brown on 10-23-2022 Platelet mean volume (Bld) [Entitic vol] 10.3 fL 6.2-12.0 [facility] Determination of erythrocyte mean corpuscular volume (MCV)Ordered By: Dr. Brown on 10-23-2022 MCV (RBC) [Entitic vol] 89.6 fL 80-94 [facility] Hematocrit Auto (Bld) [Volum e fraction]Ordered By: Dr. Brown on 10-23-2022 Hematocrit (Bld) [Volume fraction] 54.3 % 40-54 [facility] Laboratory - Chemistry and C hemistry - challengeOrdered By: Dr. Brown on 10-23-2022 CO2 [Moles/Vol] 32.0 mmol/L 21.0-32.0 [facility] Natriuretic peptide B (Bld) [Mass/Vol] 182.2 pg/mL 0-100 [facility] Urea nitrogen/Creatinine [Mass ratio] 13.0 mg/mg 10-20 [facility] Laboratory - Hematology and Cell countsOrdered By: Dr. Brown on 10-23-2022 Erythrocyte distribution width (RBC) [Entitic vol] 46.1 fL 35.1-43.9 [facility] Erythrocyte distribution width (RBC) [Ratio] 14.1 % 11.6-14.6 [facility] Immature granulocytes/100 WBC (Bld) 0.300 % 0.0-0.9 [facility] Comment on above: IG% - Immature Granu locytes (promyelocytes, myelocytes and metamyelocytes) > 1% indicates that a LEFT SHIFT is Present. MCH (RBC) [Entitic mass] 28.4 pg 27.0-32.0 [facility] Nucleated RBC/100 WBC (Bld) [Ratio] 0 % 0-5 [facility] MCHC Auto (RBC) [Mass/Vol]Or dered By: Dr. Brown on 10-23-2022 MCHC (RBC) [Mass/Vol] 31.7 g/dL 32-36 [facility] No Panel InformationOrdered By: Dr. Brown on 10-23-2022 Troponin I High Sensitivity 14 pg/mL 3.0-78.0 [facility] Comment on above: Please Note: New [place] t Units and Gender Specific Reference Ranges. For more information see Policy Stat Procedure [place] High Sensitivity Troponin (TNIH) and attachments. Estimated Creatinine Clearance Calc 104.04 ml/min [facility] Estimated GFR (MDRD) Amer 123 mL/min >60 [facility] Comment on above: GFR Calc Estimated GFR (MDRD) Non-Af Amer 102 mL/min >60 [facility] Comment on above: Non- GFR Calc Platelets bldOrdered By: Dr. Brown on 10-23-2022 Platelets (Bld) [#/Vol] 234 10*3/uL 150-450 [facility] Serum or plasma calcium scott urement (mass/volume)Ordered By: Dr. Brown on 10-23-2022 Calcium [Mass/Vol] 8.7 mg/dL 8.5-10.1 [facility] Serum or plasma creatinine m easurement (mass/volume)Ordered By: Dr. Brown on 10-23-2022 Creatinine [Mass/Vol] 0.84 mg/dL 0.70-1.30 [facility] Comment on above: The validity of the calculated GFR & GFRAA in patients over 70 years has not been determined. Clinical correlation is essential. Serum or plasma urea nitroge n measurement (mass/volume)Ordered By: Dr. Brown on 10-23-2022 Urea nitrogen [Mass/Vol] 11 mg/dL 7-18 [facility] Thin prep Papanicolaou smear with manual screeningOrdered By: Dr. Brown on 10-23-2022 Thin prep Papanicolaou smear with manual screening 6 5-15 [facility] Invasive Cardiology Clinic N oteon 08-24-2021 Invasive Cardiology Clinic Note . [facility] A Division [facility] Gem Barr M.D., [place] [address] * Reason for VisitFOLLOW UP CHEST PAIN(1) * Source of Informationpatient (1) * Accompanied bysignificant other (1) * Mode of Arrivalwalking(1) History of Present Illness: HPI Today I saw RAY in the office for follow up after cardiac testing. The patient has no history of chest pain. The patient has complaints of shortness of breath. The patient states the shortness of breath is with exertion and is no worse than usual. The patient denies history of postural nocturnal dyspnea and orthopnea. The patient reports swelling of left ankle. The patient states the swelling is no worse than usual. The patient denies skipped beats and palpitations. Denies generalized weakness, tiredness, dizziness and syncope Past Medical, Surgical and Family History: * Atrial fibrillation (I48.91): * Diabetes mellitus (E11.9): * Hypertension (I10): * Chest pain (R07.9): * Hyperlipidemia (E78.5): ROS: * General [-]no fever * Respiratory [-]no cough, no hemoptysis, no wheezing * Gastrointestinal [-]no diarrhea, no vomiting * Genitourinary [-]no burning micturition, no urinary frequency * Neuro [-]no dizziness, no syncope, no weakness * Endocrineno symptoms or complaints Allergies: * No Known Allergies: Active * Medication Reconciliation ReviewMedications reviewed with patient. Current Cardiac Medications: amLODIPine 5 mg oral tablet: 1 tab(s) orally once a day lisinopril 40 mg oral tablet: 1 tab(s) orally once a day hydrochlorothiazide 25 mg oral tablet: 1 tab(s) orally once a day Xarelto: Results: * Cardiac Procedures and Recent Cardiac Testing CARDIAC TESTING ECHOCARDIOGRAM 08-17-21 The left ventricle is normal in size and function. The ejection fraction is 50-55%. The left atrium is moderately dilated. Right atrial size is normal. The right ventricular systolic function is normal. The aortic valve is trileaflet and opens normally. There is no aortic stenosis. There is no aortic regurgitation seen. The mitral valve is normal in structure and function. There is no mitral regurgitation noted. Anatomically normal tricuspid valve. There is trace tricuspid regurgitation. Right ventricular systolic pressure is normal. There is no pericardial effusion. NUCLEAR STRESS TEST 08/17/21 Negative for ischemia. Negative for scar. EF: 51% Vital Signs: Vital Signs Heart Rate: 60 BP:148/88 Weight: 347.0 lb/157.3 kg BMI: 51.2 Smoking Status: former smoker PAIN: * Pain?none (1) Physical Exam: * HeartPMI is at the 5th intercostal space. No heaves, lift, or thrill. No local tenderness noted. No rub. Grade 2/6 systolic murmur at the apex, radiating to the side. Irregular rate and rhythm. * CVNo carotid bruit. No edema. * NeckNo Jugular Vein Distention * Respiratorynormal breathing, normal breath sounds, normal to percussion, normal to palpation, no local tenderness * Abdomensoft and non-tender, no organomegaly, bowel sounds present, negative for abdominal aortic bruit * ExtremitiesNo clubbing Pulses: * Left Dorsalis Pedis3+ normal * Right Dorsalis Pedis3+ normal * Left Posterior Tibial3+ normal * Right Posterior Tibial3+ normal Assessment and Plan: Assessment: 1.Chest pain (R07.9): No signs of decompensation. The patient is on an modesto inhibitor. 2.Diabetes mellitus (E11.9): Followed by you. 3.Hypertension (I10): No signs of decompensation. 4.Atrial fibrillation (I48.91): CHADS2 score is 2. 5.Hyperlipidemia (E78.5): * NotesChads vas2 score is 3. Patient is on an anticoagulant.(2) * PlanThe patient's nuclear stress test is negative for ischemia. Discussed with the patient in detail about the chances of false negative stress test . If the patient develops symptoms, then he may need a cardiac catheterization for further evaluation. Discussed cardiac problems and medications in detail with the patient. The patient is advised to continue current cardiac medications. I will continue to monitor the patient on the current treatment plan. DISPOSITION: The patient is to follow up as scheduled or as needed. Thank you very much for allowing me to participate in your patient's care. Unit Director Statement: Transcribed for Dr. Barr by LEWIS , software sales consultant. Electronic Signatures: Gem Barr) (Signed 11:31) Authored: Letterhead Option, Reason for Visit, Vital Signs, Allergies/Meds, History of Present Illness, Past Medical, Surgical and Family History, ROS, Physical Exam, Results, Assessment and Plan, Unit Director Statement Km Phan (Shirt Bander) (Entered 15:30) Entered: Letterhead Option, Reason for Visit, Vital Signs, Allergies/Meds, History of Pr (more content not included)... Normal [employer] Echocardiogram-Completeon Echocardiogram-Comple te Study ID: [id number] [facility] [place] [address] Name: WARRENSOCORRO BENNETTJR Study Date: 08/17/2021 07:55 AM BP: 152/92 mmHg Patient Location: [facility] HR: 84 : 1970 Gender: Male Height: 69 in Age: 50 yrs Weight: 348 lb Reason For Study: Chest Pain NOS BSA: 2.6 m2 History: Age,Hypertension,Diabe kassy Ordering Physician: Gem Barr Referring Physician: Zacarias Cohn Performed By: Betsy Mendez ENRICO Interpreting physician: Gem Barr MD Transthoracic Echocardiogram Interpretation Summary This was essentially a normal study. The left ventricle is normal in size and function. The ejection fraction is 50-55%. The left atrium is moderately dilated. Right atrial size is normal. The right ventricular systolic function is normal. The aortic valve is trileaflet and opens normally. There is no aortic stenosis. There is no aortic regurgitation seen. The mitral valve is normal in structure and function. There is no mitral regurgitation noted. Anatomically normal tricuspid valve. There is trace tricuspid regurgitation. Right ventricular systolic pressure is normal. There is no pericardial effusion. Procedure A complete two-dimensional transthoracic echocardiogram was performed (2D, M-mode, spectral and color flow Doppler). Study quality is adequate. Left Ventricle The left ventricle is normal in size and function. The ejection fraction is 50-55%. No obvious regional wall motion abnormalities noted. There is normal diastolic function. Left Atrium The left atrium is moderately dilated. Right Atrium Right atrial size is normal. Right Ventricle The right ventricular systolic function is normal. Aortic Valve The aortic valve is trileaflet and opens normally. There is no aortic regurgitation seen. There is no aortic stenosis. Mitral Valve The mitral valve is normal in structure and function. There is no mitral regurgitation noted. There is no mitral stenosis. Tricuspid Valve Anatomically normal tricuspid valve. There is trace tricuspid regurgitation. Right ventricular systolic pressure is normal. No evidence of tricuspid stenosis. Pulmonic Valve The pulmonic valve is normal. There is no pulmonic valve regurgitation. Great Arteries The aortic root is normal in size. Venous The inferior vena cava is normal in size and collapses normally with respiration. Pericardium/Pleural There is no pericardial effusion. MMode/2D Measurements & Calculations RVDd: 4.2 cm LVIDd: 5.2 cm FS: 25.7 % IVSd: 1.7 cm LVIDs: 3.8 cm EDV(Teich): 126.9 ml LVPWd: 1.3 cm ESV(Teich): 63.1 ml EF(Teich): 50.3 % Ao root diam: 3.6 cm asc Aorta Diam: 3.6 cm LVOT diam: 2.5 cm Ao root area: 10.3 cm2 LVOT area: 5.0 cm2 LA dimension: 4.8 cm CO (BP): 54.9 ml LA/AO root ration 2D: 1.3 Doppler Measurements & Calculations MV E max emmy: 67.1 cm/sec MV V2 max: 77.4 cm/sec MV P1/2t max emmy: 66.1 cm/sec MV A max emmy: 50.8 cm/sec MV max P.4 mmHg MV P1/2t: 94.6 msec MV E/A: 1.3 MV V2 mean: 58.2 cm/sec MVA(P1/2t): 2.3 cm2 MV mean P.5 mmHg MV V2 VTI: 21.7 cm MV dec slope: 204.8 cm/sec2 MVA(VTI): 4.5 cm2 Ao V2 max: 149.3 cm/sec LV V1 max P.7 mmHg SV(LVOT): 97.4 ml Ao max P.9 mmHg LV V1 mean P.0 mmHg Ao max PG (full): 5.2 mmHg LV V1 max: 96.3 cm/sec Ao V2 mean: 99.0 cm/sec LV V1 mean: 66.5 cm/sec Ao mean P.3 mmHg LV V1 VTI: 19.7 cm Ao V2 VTI: 25.1 cm VIN(I,D): 3.9 cm2 VIN(V,D): 3.2 cm2 PA V2 max: 100.4 cm/sec TR max emmy: 191.4 cm/sec RAP systole: 10.0 mmHg PA max P.0 mmHg TR max P.7 mmHg RVSP(TR): 24.7 mmHg MV P1/2t-pr: 94.6 msec E/LatE': 9.4 [id number]{1}__ [id number] [facility] Invasive Cardiology Clinic N mary 08-02-2021 Invasive Cardiology Clinic Note . [facility] A Division of [facility] Gem Barr M.D., [place] [address] * Reason for VisitFOLLOW UP CHEST PAIN(1) * Source of Informationpatient (1) * Accompanied byspouse (1) * Mode of Arrivalwalking(1) History of Present Illness: HPI Chief Complaint: (Atrial Fibrillation) Today I saw RAY in the office for a follow up appointment. The patient has complaints of chest pain and chest pain with exertion. The pain is described as pressure and located in the left side. The patient has complaints of shortness of breath. The patient states the shortness of breath is with exertion. The patient denies history of postural nocturnal dyspnea and orthopnea. The patient reports swelling. The patient denies skipped beats and palpitations. Denies generalized weakness, tiredness, dizziness and syncope Past Medical, Surgical and Family History: * Atrial fibrillation (I48.91): * Diabetes mellitus (E11.9): * Hypertension (I10): * Chest pain (R07.9): ROS: * General [-]no fever * Respiratory [-]no cough, no hemoptysis, no wheezing * Gastrointestinal [-]no diarrhea, no vomiting * Genitourinary [-]no burning micturition, no urinary frequency * Neuro [-]no dizziness, no syncope, no weakness Allergies: * No Known Allergies: Active * Medication Reconciliation ReviewMedications reviewed with patient. * Taking all medications as prescribed?yes Current Cardiac Medications: amLODIPine 5 mg oral tablet: 1 tab(s) orally once a day lisinopril 40 mg oral tablet: 1 tab(s) orally once a day hydrochlorothiazide 25 mg oral tablet: 1 tab(s) orally once a day Xarelto: Results: * Cardiac Procedures and Recent Cardiac Testing ECHOCARDIOGRAM 09/09/2008 LA: Normal size Diastolic Dysfunction: Positive LV EF: 58% RVSP: 19.7 Mitral Valve: No prolapse and No stenosis1-2+regurgitat ion Aortic Valve: No Stenosis and No regurgitation Tricuspid Valve: 1-2+ regurgitation NUCLEAR STRESS TEST 09/09/2008 Negative for ischemia. Negative for scar. EF: 46%(1) DIAGNOSTIC IMAGING AND OTHERS: 14:57, EKG ([place]) View EKG-MUSE* EKG: EKG Measurements* Test Reason : Blood Pressure : / mmHG Vent. Rate : 112 BPM Atrial Rate : 182 BPM P-R Int : 000 ms QRS Dur : 086 ms QT Int : 346 ms P-R-T Axes : 000 162 -21 degrees QTc Int : 472 ms Atrial fibrillation with rapid ventricular response Right axis deviation Possible Right ventricular hypertrophy Nonspecific ST abnormality Abnormal QRS-T angle, consider primary T wave abnormality Abnormal ECG When compared with ECG of 13-MAR-2019 12:53, Atrial fibrillation has replaced Sinus rhythm T wave inversion now evident in Inferior leads Referred By: ZACARIAS COHN Confirmed By: : 1970 Vital Signs: Vital Signs Heart Rate: 90 BP:130/80 Weight: 348.0 lb/157.8 kg BMI: 51.4 Smoking Status: former smoker PAIN: * Pain?none (1) Physical Exam: * HeartPMI is at the 5th intercostal space. No heaves, lift, or thrill. No local tenderness noted. No rub. Grade 2/6 systolic murmur at the apex, radiating to the side. Irregular rate and rhythm. * CVNo carotid bruit. No edema. * NeckNo Jugular Vein Distention * Respiratorynormal breathing, normal breath sounds, normal to percussion, normal to palpation, no local tenderness * Abdomensoft and non-tender, no organomegaly, bowel sounds present, negative for abdominal aortic bruit * ExtremitiesNo clubbing Pulses: * Left Dorsalis Pedis3+ normal * Right Dorsalis Pedis3+ normal * Left Posterior Tibial3+ normal * Right Posterior Tibial3+ normal Assessment and Plan: Assessment: 1.Atrial fibrillation (I48.91): Chads vas2 score is 3. Patient is on an anticoagulant. 2.Chest pain (R07.9): 3.Diabetes mellitus (E11.9): Followed by you. 4.Hypertension (I10): * NotesChads vas2 score is 3. Patient is on an anticoagulant. * PlanTSH is to be drawn 2 days before next appointment. The following cardiac testing has been ordered for further cardiac evaluation: Pharmacological Nuclear Stress Test and Echocardiogram Indications: Chest pain Cardiac Risk Factors: Age, Hypertension, Diabetes, Family history of premature coronary artery disease Patient cannot walk on treadmill due to Atrial Fibrillation Discussed with the patient in detail about the risks, benefits and alternative treatments of cardiac testing. The patient verbalized understanding and wants to undergo these tests. Meanwhile, the patient was advised not to engage in any heavy work or exercise. Sublingual nitroglycerin is to be used as needed and if the symptoms get worse, the patient is to go to the emergency room for an evaluation. Further management plan depends upon the above test results. Advised the patient to con (more content not included)... Normal [employer] Vu 01-29-2021 ER EMERGENCY ROOM NOTE CHIEF COMPLAINT: Swelling and redness of right great toe x1 day. HISTORY OF PRESENT ILLNESS: Patient is a 50-year-old male who presented to the emergency department with the above complaint. Denies any injury to the great toe. He said he had a hangnail on the toe which his helped to remove. Described the pain as aching, worse with ambulation. No fever or chills. No tingling or numbness. No other associated symptoms. ALLERGIES: No known allergies. PAST MEDICAL HISTORY: Hypertension, gastroesophageal reflux disease, gout, and glaucoma. FAMILY HISTORY: Noncontributory. SOCIAL HISTORY: He uses snuff. Does not drink alcohol or use illicit drugs. REVIEW OF SYSTEMS: Six systems reviewed and are negative except as documented in History of Present Illness and other chronic symptoms that are preexisting and are stable or noncontributory. PHYSICAL EXAMINATION: VITAL SIGNS: Blood pressure 159/97, temperature 98.2, pulse 72 per minute, respirations 20 per minute, O2 saturation 98% on room air. GENERAL: Patient is a very obese, normal-appearing, male patient in no obvious acute distress. HEENT: Atraumatic, normocephalic. Clear conjunctivae. NECK: Normal range of motion observed. RESPIRATORY: Normal air flow observed. EXTREMITIES: Right foot: There is mild to moderate swelling of the right big toe just medial to the toenail without involvement of the joint. It is tender to touch at this point. There is a little ingrowing of the toenail also. No neurologic deficit. Distal pulses are normal. Capillary refill is less than 2 seconds. DIAGNOSTIC TESTING: No diagnostic testing was done. ER COURSE: Patient was given Keflex and naproxen in the emergency department. IMPRESSION: Ingrown toenail with infection. PLAN: We will discharge patient home on Keflex and naproxen. Asked patient to soak his foot in [place] or Epsom salt 2-3 times a day. 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 Normal [facility] GLYCOHEMOGLOBINon 01-06-2021 HbA1c (Bld) [Mass fraction] 6.43 % High 4.60-6.30 [facility] Comment on above: Performed By: #### % A1c #### [facility] [address] [place] [id number] SUE Flores MD LIPID PROFILE - FASTINGon Cholesterol [Mass/Vol] 152 mg/dL Normal <=200 [facility] Comment on above: Performed By: #### L IPID #### [facility] [address] [place], [place] [id number] SUE Flores MD Cholesterol in HDL [Mass/Vol] 28 mg/dL Low 40-60 [facility] Comment on above: Performed By: #### L IPID #### [facility] [address] [place], [place] [id number] SUE Flores MD Cholesterol in LDL [Mass/Vol] 85 mg/dL Normal 0-130 [facility] Comment on above: Performed By: #### L IPID #### [facility] [address] [place], [place] [id number] SUE Flores MD COMMENT Recommended (Desirable) < 130mg/dL Moderate Risk 130-159 mg/dL High Risk: >/= 130 mg/dL Normal [facility] Comment on above: Performed By: #### L IPID #### [facility] [address] [place] [address] SUE Flores MD Triglyceride [Mass/Vol] 198 mg/dL High <=150 [facility] Comment on above: Performed By: #### L IPID #### [facility] [address] [place] [address] SUE Flores MD RENAL FUNCTION PANELon 01-06 Albumin [Mass/Vol] 4.4 g/dL Normal 3.5-5.0 [facility] Comment on above: Performed By: #### R FP #### [facility] [address] [place] [address] SUE Flores MD Calcium [Mass/Vol] 9.6 mg/dL Normal 8.4-10.2 [facility] Comment on above: Performed By: #### R FP #### [facility] [address] [place], [place] [id number] SUE Flores MD Chloride [Moles/Vol] 96 mmol/L Low 98-107 [facility] Comment on above: Performed By: #### R FP #### [facility] [address] [place], [place] [id number] SUE Flores MD Creatinine [Mass/Vol] 0.9 mg/dL Normal 0.7-1.3 [facility] Comment on above: Performed By: #### R FP #### [facility] [address] [place] [address] SUE Flores MD ECO2 29 mmol/L Normal 22-30 [facility] Comment on above: Performed By: #### R FP #### [facility] [address] [place] [address] SUE Flores MD EGFR-AF GUAMANIAN 109 mL/min/1.73m 2 Normal >=60 [facility] Comment on above: Performed By: #### R FP #### [facility] [address] [place] [address] SUE Flores MD EGFR-NON AF GUAMANIAN 90 mL/min/1.73 m 2 Normal >=60 [facility] Comment on above: Performed By: #### R FP #### [facility] [address] [place] [address] SUE Flores MD Glucose [Mass/Vol] 146 mg/dL High 70-99 [facility] Comment on above: Performed By: #### R FP #### [facility] [address] [place] [address] SUE Flores MD Phosphate [Mass/Vol] 4.2 mg/dL Normal 2.5-4.5 [facility] Comment on above: Performed By: #### R FP #### [facility] [address] [place] [address] USE Flores MD Potassium [Moles/Vol] 4.0 mmol/L Normal 3.5-5.0 [facility] Comment on above: Performed By: #### R FP #### [facility] [address] [place] [address] SUE Flores MD Sodium [Moles/Vol] 136 mmol/L Low 137-145 [facility] Comment on above: Performed By: #### R FP #### [facility] [address] [place] [address] SUE Flores MD Urea nitrogen [Mass/Vol] 13 mg/dL Normal 9-20 [facility] Comment on above: Performed By: #### R FP #### [facility] [address] [place], [place] [id number] SUE Flores MD CHEST TWO VIEWSon 11-09-2020 CHEST TWO VIEWS TWO VIEWS OF THE [address] CLINICAL HISTORY: Shortness of breath. PA and lateral views of the chest were performed and compared to prior exam of 02/01/19. The heart is normal size. Chronic changes are seen within the lungs. There is no consolidation, pleural effusion or pneumothorax. IMPRESSION: NO ACUTE PULMONARY DISEASE. BH Electronically signed by: FERNANDO DYER MD Approved By: FERNANDO DYER MD Date: 11/09/2020 3:55 PM Normal [facility] CBC PLT DIFFon 06-11-2020 BASO # 0.04 10 3/uL Normal 0.00-0.10 [facility] Comment on above: Performed By: #### C BC #### [facility] [address] [place] [address] SUE Flores MD Basophils/100 WBC (Bld) 0.5 % Normal 0.2-1.0 [facility] Comment on above: Performed By: #### C BC #### [facility] [address] [place] [address] SUE Flores MD EOS# 0.19 10 3/uL Normal 0.00-0.20 [facility] Comment on above: Performed By: #### C BC #### [facility] [address] [place], [place] [id number] SUE Flores MD Eosinophils/100 WBC (Bld) 2.3 % Normal 0.9-2.9 [facility] Comment on above: Performed By: #### C BC #### [facility] [address] [place], [place] [id number] SUE Flores MD Erythrocyte distribution width (RBC) [Ratio] 13.4 % Normal 11.5-15.5 [facility] Comment on above: Performed By: #### C BC #### [facility] [address] [place] [address] SUE Flores MD Hematocrit (Bld) [Volume fraction] 46.5 % Normal 42.0-52.0 [facility] Comment on above: Performed By: #### C BC #### [facility] [address] [place] [address] SUE Flores MD Hemoglobin (Bld) [Mass/Vol] 16.0 g/dL Normal 14.0-18.0 [facility] Comment on above: Performed By: #### C BC #### [facility] [address] [place] [address] SUE Flores MD IG# 0.04 10 3/uL Normal [facility] Comment on above: Performed By: #### C BC #### [facility] [address] [place] [address] SUE Flores MD IG% 0.5 % Normal [facility] Comment on above: Performed By: #### C BC #### [facility] [address] [place] [address] SUE Flores MD LYMPH# 1.41 10 3/uL Normal 1.30-2.90 [facility] Comment on above: Performed By: #### C BC #### [facility] [address] [place] [address] SUE Flores MD Lymphocytes/100 WBC (Bld) 17.4 % Low 20.5-45.5 [facility] Comment on above: Performed By: #### C BC #### [facility] [address] [place] [address] SUE Flores MD MCH (RBC) [Entitic mass] 30.1 pg Normal 27.0-31.0 [facility] Comment on above: Performed By: #### C BC #### [facility] [address] [place], [place] [id number] SUE Flores MD MCHC (RBC) [Mass/Vol] 34.4 g/dL Normal 32.0-36.0 [facility] Comment on above: Performed By: #### C BC #### [facility] [address] [place] [address] SUE Flores MD MCV (RBC) [Entitic vol] 87.6 fL Normal 80.0-94.0 [facility] Comment on above: Performed By: #### C BC #### [facility] [address] [place], [place] [address] SUE Flores MD MONO# 0.67 10 3/uL Normal 0.30-0.80 [facility] Comment on above: Performed By: #### C BC #### [facility] [address] [place], [place] [address] SUE Flores MD Monocytes/100 WBC (Bld) 8.3 % Normal 5.5-11.7 [facility] Comment on above: Performed By: #### C BC #### [facility] [address] [place] [address] SUE Flores MD Morphology Rocky (Bld) [Interp] Normal [facility] Comment on above: Performed By: #### C BC #### [facility] [address] [place], [place] [address] SUE Flores MD NEUT# 5.75 10 3/uL High 2.20-4.80 [facility] Comment on above: Performed By: #### C BC #### [facility] [address] [place], [place] [address] SUE Flores MD Neutrophils/100 WBC (Bld) 71.0 % High 43.0-65.0 [facility] Comment on above: Performed By: #### C BC #### [facility] [address] [place], [place] [address] SUE Flores MD NRBC# 0.00 10 3/uL Normal [facility] Comment on above: Performed By: #### C BC #### [facility] [address] [place], [place] [address] SUE Flores MD Nucleated RBC/100 WBC (Bld) [Ratio] 0.0 % Normal [facility] Comment on above: Performed By: #### C BC #### [facility] [address] [place], [place] [address] SUE Flores MD Platelet mean volume (Bld) [Entitic vol] 8.4 fL Normal 7.4-10.4 [facility] Comment on above: Performed By: #### C BC #### [facility] [address] [place], [place] [address] SUE Flores MD PLT 221 10 3/uL Normal 130-400 [facility] Comment on above: Performed By: #### C BC #### [facility] [address] [place], [place] [address] SUE Flores MD RBC 5.31 10 6/uL Normal 4.70-6.10 [facility] Comment on above: Performed By: #### C BC #### [facility] [address] [place], [place] [address] SUE Flores MD WBC 8.10 10 3/uL Normal 4.70-10.80 [facility] Comment on above: Performed By: #### C BC #### [facility] [address] [place], [place] [address] SUE Flores MD CMPon 06-11-2020 Albumin [Mass/Vol] 4.1 g/dL Normal 3.5-5.0 [facility] Comment on above: Performed By: #### C MP #### [facility] [address] [place], [place] [address] SUE Flores MD ALP [Catalytic activity/Vol] 72 U/L Normal 38-126 [facility] Comment on above: Performed By: #### C MP #### [facility] [address] [place], [place] [address] SUE Flores MD ALT [Catalytic activity/Vol] 17 U/L Low 21-72 [facility] Comment on above: Performed By: #### C MP #### [facility] [address] [place], [place] [address] SUE Flores MD AST [Catalytic activity/Vol] 21 U/L Normal 17-59 [facility] Comment on above: Performed By: #### C MP #### [facility] [address] [place], [place] [address] SUE Flores MD Bilirubin [Mass/Vol] 0.6 mg/dL Normal 0.2-1.3 [facility] Comment on above: Performed By: #### C MP #### [facility] [address] [place] [id number] SUE Flores MD Calcium [Mass/Vol] 8.9 mg/dL Normal 8.4-10.2 [facility] Comment on above: Performed By: #### C MP #### [facility] [address] [place], [place] [address] SUE Flores MD Chloride [Moles/Vol] 99 mmol/L Normal 98-107 [facility] Comment on above: Performed By: #### C MP #### [facility] [address] [place], [place] [address] SUE Flores MD Creatinine [Mass/Vol] 0.7 mg/dL Normal 0.7-1.3 [facility] Comment on above: Performed By: #### C MP #### [facility] [address] [place], [place] [address] SUE Flores MD ECO2 30 mmol/L Normal 22-30 [facility] Comment on above: Performed By: #### C MP #### [facility] [address] [place], [place] [address] SUE Flores MD EGFR-AF GUAMANIAN 146 mL/min/1.73m 2 Normal >=60 [facility] Comment on above: Performed By: #### C MP #### [facility] [address] [place], [place] [address] SUE Flores MD EGFR-NON AF GUAMANIAN 120 mL/min/1.73 m 2 Normal >=60 [facility] Comment on above: Performed By: #### C MP #### [facility] [address] [place], [place] [address] SUE Flores MD Glucose [Mass/Vol] 125 mg/dL High 70-99 [facility] Comment on above: Performed By: #### C MP #### [facility] [address] [place], [place] [address] SUE Flores MD Potassium [Moles/Vol] 3.6 mmol/L Normal 3.5-5.0 [facility] Comment on above: Performed By: #### C MP #### [facility] [address] [place] [id number] SUE Flores MD Protein [Mass/Vol] 7.4 g/dL Normal 6.3-8.2 [facility] Comment on above: Performed By: #### C MP #### [facility] [address] [place], [place] [address] SUE Flores MD Sodium [Moles/Vol] 136 mmol/L Low 137-145 [facility] Comment on above: Performed By: #### C MP #### [facility] [address] [place], [place] [address] SUE Flores MD Urea nitrogen [Mass/Vol] 11 mg/dL Normal 9-20 [facility] Comment on above: Performed By: #### C MP #### [facility] [address] [place], [place] [address] SUE Flores MD GLYCOHEMOGLOBINon 06-11-2020 HbA1c (Bld) [Mass fraction] 6.22 % Normal 4.00-6.30 [facility] Comment on above: Performed By: #### % A1c #### [facility] [address] [place] [address] SUE Flores MD LIPID PROFILE - FASTINGon Cholesterol [Mass/Vol] 147 mg/dL Normal <=200 [facility] Comment on above: Performed By: #### L IPID #### [facility] [address] [place] [id number] SUE Flores MD Cholesterol in HDL [Mass/Vol] 24 mg/dL Low 40-60 [facility] Comment on above: Performed By: #### L IPID #### [facility] [address] [place], [place] [address] SUE Flores MD Cholesterol in LDL [Mass/Vol] 89 mg/dL Normal 0-130 [facility] Comment on above: Performed By: #### L IPID #### [facility] [address] [place], [place] [address] SUE Flores MD COMMENT Recommended (Desirable) < 130mg/dL Moderate Risk 130-159 mg/dL High Risk: >/= 130 mg/dL Normal [facility] Comment on above: Performed By: #### L IPID #### [facility] [address] [place] [address] SUE Flores MD Triglyceride [Mass/Vol] 167 mg/dL High <=150 [facility] Comment on above: Performed By: #### L IPID #### [facility] [address] [place] [address] SUE Flores MD URIC ACIDon 06-11-2020 Urate [Mass/Vol] 5.6 mg/dL Normal 3.5-8.5 [facility] Comment on above: Performed By: #### U R #### [facility] [address] [place] [address] SUE Flores MD Vital Signs Date Time Vital Sign Value Performing Clinician Faci lity 10-04-2024 21:13-0400 Reason For Taking VItal Signs DR ROBERT SCHMITZ MD [address] 10-04-2024 19:37-0400 Heart rate 71 /min DR ROBERT Walls [address] 10-04-2024 19:37-0400 Reason For Taking VItal Signs DR ROBERT SCHMITZ MD [facility] 10-04-2024 19:37-0400 Respiratory rate 18 /min DR ROBERT Walls [facility] 10-04-2024 19:14-0400 Heart rate 66 /min DR ROBERT Walls [address] 10-04-2024 19:14-0400 Blood Pressure Cuff Size DR ROBERT SCHMITZ MD [facility] 10-04-2024 19:14-[address] ROBERT SCHMITZ MD [address] [place] [address] 10-04-2024 19:14-[address] ROBERT SCHMITZ MD [address] [place] [address] 10-04-2024 19:14-0400 Body temperature 97.7 [degF] DR ROBERT Walls [address] [place] [address] 10-04-2024 19:14-0400 Diastolic Blood Pressure Non-Invasive 90 mm[Hg] DR ROBERT SCHMITZ MD [address] [place] [address] 10-04-2024 19:14-0400 Reason For Taking VItal Signs DR ROBERT SCHMITZ MD [address] [place] [address] 10-04-2024 19:14-0400 Respiratory rate 16 /min DR ROBERT Walls [address] [place] [address] 10-04-2024 19:14-0400 Systolic Blood Pressure Non-Invasive 138 mm[Hg] DR ROBERT SCHMITZ MD [address] [place] [address] 10-04-2024 16:28-0400 Heart rate 72 /min DR ROBERT Walls [address] [place] [address] 10-04-2024 15:31-0400 Heart rate 72 /min DR ROBERT Walls [address] [place] [address] 10-04-2024 15:31-0400 Blood Pressure Cuff Size DR ROBERT SCHMITZ MD [address] [place] [address] 10-04-2024 15:31-[address] ROBERT SCHMITZ MD [address] [place] [address] 10-04-2024 15:31-[address] ROBERT SCHMITZ MD [address] [place] [address] 10-04-2024 15:31-0400 Body temperature 97.52 [degF] DR ROBERT Walls [address] [place] [address] 10-04-2024 15:31-0400 Diastolic Blood Pressure Non-Invasive 72 mm[Hg] DR ROBERT SCHMITZ MD [address] [place] [address] 10-04-2024 15:31-0400 Respiratory rate 16 /min DR ROBERT Walls [address] [place] [address] 10-04-2024 15:31-0400 Systolic Blood Pressure Non-Invasive 120 mm[Hg] DR ROBERT SCHMITZ MD [address] [place] [address] 10-04-2024 15:02-0400 Blood Pressure Cuff Size DR ROBERT SCHMITZ MD [address] [place] [address] 10-04-2024 15:02-[address] ROBERT SCHMITZ MD [address] [place] [address] 10-04-2024 15:02-[address] ROBERT SCHMITZ MD [address] [place] [address] 10-04-2024 15:02-0400 Body temperature 97.88 [degF] DR ROBERT Walls [address] [place] [address] 10-04-2024 15:02-0400 Diastolic Blood Pressure Non-Invasive 78 mm[Hg] DR ROBERT SCHMITZ MD [address] [place] [address] 10-04-2024 15:02-0400 Heart rate 73 /min DR ROBERT Walls [address] [place] [address] 10-04-2024 15:02-0400 Systolic Blood Pressure Non-Invasive 116 mm[Hg] DR ROBERT SCHMITZ MD [address] [place] [address] 10-04-2024 11:59-0400 Heart rate 61 /min DR ROBERT Walls [address] [place] [address] 10-04-2024 07:54-0400 Heart rate 66 /min DR ROBERT Walls [address] [place] [address] 10-04-2024 07:46-0400 Heart rate 64 /min DR ROBERT Walls [facility] 10-03-2024 16:05-0400 Heart rate 74 /min DR ROBERT Walls [facility] 10-02-2024 06:28-0400 Body height 177.[address] ROBERT Walls [facility] 10-02-2024 06:28-0400 Body weight 140.[address] ROBERT Walls [facility] 10-02-2024 06:28-0400 Body weight 44.38 kg/m2 DR ROBERT Walls [facility] 10-02-2024 05:00-0400 Diastolic Blood Pressure Non-Invasive 68 mm[Hg] DELORES DURESKA DO [facility] 10-02-2024 05:00-0400 Heart rate 116 /min DELORES DURESKA DO [facility] 10-02-2024 05:00-0400 Systolic Blood Pressure Non-Invasive 108 mm[Hg] DELORES DURESKA DO [facility] 10-02-2024 04:00-0400 Diastolic Blood Pressure Non-Invasive 70 mm[Hg] DELORES DURESKA DO [facility] 10-02-2024 04:00-0400 Heart rate 125 /min DELORES DURESKA DO [facility] 10-02-2024 04:00-0400 Systolic Blood Pressure Non-Invasive 101 mm[Hg] DELORES DURESKA DO [facility] 10-02-2024 02:31-0400 Body weight 143 kg DELORES DURESKA DO [facility] 10-02-2024 02:15-0400 Diastolic Blood Pressure Non-Invasive 90 mm[Hg] DELORES BARROSOESKA DO [facility] 10-02-2024 02:15-0400 Heart rate 120 /min DELORES BARROSOESKA DO [facility] 10-02-2024 02:15-0400 Respiratory rate 18 /min DELORES VOKA DO [facility] 10-02-2024 02:15-0400 Systolic Blood Pressure Non-Invasive 106 mm[Hg] DELORES VOKA DO [facility] 10-02-2024 00:27-0400 Body temperature 98.06 [degF] DELORES MURO DO [facility] 02-01-2024 16:08-0400 Heart rate 72 /min CINDY HERNANDEZ MD [facility] 02-01-2024 15:25-0400 Heart rate 68 /min CINDY HERNANDEZ MD [facility] 02-01-2024 15:25-0400 Respiratory rate 18 /min CINDY HERNANDEZ MD [facility] 02-01-2024 14:44-0400 Body temperature 98.6 [degF] CINDY HERNANDEZ MD [facility] 02-01-2024 14:44-0400 Diastolic Blood Pressure Non-Invasive 82 mm[Hg] CINDY HERNANDEZ MD [facility] 02-01-2024 14:44-0400 Heart rate 72 /min CINDY HERNANDEZ MD [facility] 02-01-2024 14:44-0400 Respiratory rate 18 /min CINDY HERNANDEZ MD [facility] 02-01-2024 14:44-0400 Systolic Blood Pressure Non-Invasive 119 mm[Hg] CINDY HERNANDEZ MD [facility] 02-01-2024 11:12-0400 Body temperature 98.24 [degF] CINDY HERNANDEZ MD [facility] 02-01-2024 11:12-0400 Diastolic Blood Pressure Non-Invasive 72 mm[Hg] CINDY HERNANDEZ MD [facility] 02-01-2024 11:12-0400 Heart rate 82 /min CINDY HERNANDEZ MD [facility] 02-01-2024 11:12-0400 Reason For Taking VItal Signs CINDY HERNANDEZ MD [facility] 02-01-2024 11:12-0400 Respiratory rate 18 /min CINDY HERNANDEZ MD [facility] 02-01-2024 11:12-0400 Systolic Blood Pressure Non-Invasive 101 mm[Hg] CINDY HERNANDEZ MD [facility] 02-01-2024 09:16-0400 Heart rate 79 /min CINDY HERNANDEZ MD [facility] 02-01-2024 09:04-0400 Blood Pressure Cuff Size CINDY HERNANDEZ MD [facility] 02-01-2024 09:04-0400 Blood Pressure Location CINDY HERNANDEZ MD [facility] 02-01-2024 09:04-0400 Blood Pressure Method CINDY HERNANDEZ MD [facility] 02-01-2024 09:04-0400 Body temperature 98.96 [degF] CINDY HERNANDEZ MD [facility] 02-01-2024 09:04-0400 Diastolic Blood Pressure Non-Invasive 64 mm[Hg] CINDY HERNANDEZ MD [facility] 02-01-2024 09:04-0400 Heart rate 84 /min CINDY HERNANDEZ MD [facility] 02-01-2024 09:04-0400 Reason For Taking VItal Signs CINDY HERNANDEZ MD [facility] 02-01-2024 09:04-0400 Systolic Blood Pressure Non-Invasive 105 mm[Hg] CINDY HERNANDEZ MD [facility] 02-01-2024 07:04-0400 Heart rate 60 /min CINDY HERNANDEZ MD [facility] 02-01-2024 03:35-0400 Heart rate 80 /min CINDY HERNANDEZ MD [facility] 02-01-2024 03:35-0400 Mean blood pressure 73 mm[Hg] CINDY HERNANDEZ MD [facility] 02-01-2024 03:35-0400 Reason For Taking VItal Signs CINDY HERNANDEZ MD [facility] 01-31-2024 23:23-0400 Heart rate 84 /min [facility] [facility] 01-31-2024 23:23-0400 Mean blood pressure 74 mm[Hg] CINDY HERNANDEZ MD [facility] 01-31-2024 18:38-0400 Mean blood pressure 79 mm[Hg] CINDY HERNANDEZ MD [facility] 01-31-2024 02:56-0400 Body height 175 cm CINDY HERNANDEZ MD [facility] 01-31-2024 02:56-0400 Body weight 149.1 kg CINDY HERNANDEZ MD [facility] 01-31-2024 02:56-0400 Body weight 48.69 kg/m2 CINDY HERNANDEZ MD [facility] 01-31-2024 01:18-[address] SAMY JONES MD [facility] 01-31-2024 01:18-[address] SAMY JONES MD [facility] 01-31-2024 01:18-0400 Diastolic Blood Pressure Non-Invasive 71 mm[Hg] DR SAMY JONES MD [facility] 01-31-2024 01:18-0400 Heart rate 90 /min DR SAMY JONES MD [facility] 01-31-2024 01:18-0400 Mean blood pressure 82 mm[Hg] DR SAMY JOENS MD [facility] 01-31-2024 01:18-0400 Reason For Taking VItal Signs DR SAMY JONES MD [facility] 01-31-2024 01:18-0400 Respiratory rate 18 /min DR SAMY JONES MD [facility] 01-31-2024 01:18-0400 Systolic Blood Pressure Non-Invasive 111 mm[Hg] DR SAMY JONES MD [facility] 01-31-2024 01:07-[address] SAMY JONES MD [facility] 01-31-2024 01:07-[address] SAMY JONES MD [facility] 01-31-2024 01:07-0400 Diastolic Blood Pressure Non-Invasive 61 mm[Hg] DR SAMY JONES MD [facility] 01-31-2024 01:07-0400 Heart rate 85 /min DR SAMY JONES MD [facility] 01-31-2024 01:07-0400 Mean blood pressure 71 mm[Hg] DR SAMY JONES MD [facility] 01-31-2024 01:07-0400 Reason For Taking VItal Signs DR SAMY JONES MD [facility] 01-31-2024 01:07-0400 Respiratory rate 12 /min DR SAMY JONES MD [facility] 01-31-2024 01:07-0400 Systolic Blood Pressure Non-Invasive 90 mm[Hg] DR SAMY JONES MD [facility] 01-31-2024 00:58-[address] SAMY JONES MD [facility] 01-31-2024 00:58-[address] SAMY JONES MD [facility] 01-31-2024 00:58-0400 Diastolic Blood Pressure Non-Invasive 64 mm[Hg] DR SAMY JONES MD [facility] 01-31-2024 00:58-0400 Heart rate 89 /min DR SAMY JONES MD [facility] 01-31-2024 00:58-0400 Mean blood pressure 76 mm[Hg] DR SAMY JONES MD [facility] 01-31-2024 00:58-0400 Reason For Taking VItal Signs DR SAMY JONES MD [facility] 01-31-2024 00:58-0400 Respiratory rate 13 /min DR SAMY JONES MD [facility] 01-31-2024 00:58-0400 Systolic Blood Pressure Non-Invasive 97 mm[Hg] DR SAMY JONES MD [facility] 01-30-2024 20:22-0400 SaO2% (BldA) [Mass fraction] 88.8 % DR SAMY JONES MD [facility] 01-30-2024 20:15-0400 Body height 175.[address] SAMY JONES MD [facility] 01-30-2024 20:15-0400 Body temperature 99.32 [degF] DR SAMY JONES MD [facility] 01-30-2024 20:15-0400 Body weight 145.[address] SAMY JONES MD [facility] 01-30-2024 20:15-0400 Heart rate 133 /min DR SAMY JONES MD [facility] 08-09-2023 21:07-0400 Blood Pressure Cuff Size DR OLLIE BROOKE MD [facility] 08-09-2023 21:07-[address] OLLIE BROOKE MD [facility] 08-09-2023 21:07-[address] OLLIE BROOKE MD [facility] 08-09-2023 21:07-0400 Body height 177.[address] OLLIE BROOKE MD [facility] 08-09-2023 21:07-0400 Body temperature 96.98 [degF] DR OLLIE BROOKE MD [facility] 08-09-2023 21:07-0400 Body weight 155.[address] OLLIE BROOKE MD [facility] 08-09-2023 21:07-0400 Diastolic Blood Pressure Non-Invasive 78 mm[Hg] DR OLLIE BROOKE MD [facility] 08-09-2023 21:07-0400 Heart rate 70 /min DR OLLIE BROOKE MD [facility] 08-09-2023 21:07-0400 Reason For Taking VItal Signs DR OLLIE BROOKE MD [facility] 08-09-2023 21:07-0400 Respiratory rate 22 /min DR OLLIE BROOKE MD [facility] 08-09-2023 21:07-0400 Systolic Blood Pressure Non-Invasive 121 mm[Hg] DR OLLIE BROOKE MD [facility] 06-13-2023 01:18-0500 Diastolic Blood Pressure Non-Invasive 78 mm[Hg] DEMI HUSTON MD [facility] 06-13-2023 01:18-0500 Heart rate 80 /min DEMI HUSTON MD [facility] 06-13-2023 01:18-0500 Respiratory rate 18 /min DEMI HUSTON MD [facility] 06-13-2023 01:18-0500 Systolic Blood Pressure Non-Invasive 142 mm[Hg] DEMI HUSTON MD [facility] 06-13-2023 00:35-0500 Heart rate 74 /min DEMI HUSTON MD [facility] 06-13-2023 00:35-0500 Respiratory rate 20 /min DEMI HUSTON MD [facility] 06-13-2023 00:03-0500 Body temperature 97.7 [degF] DEMI HUSTON MD [facility] 06-13-2023 00:03-0500 Diastolic Blood Pressure Non-Invasive 84 mm[Hg] DEMI HUSTON MD [facility] 06-13-2023 00:03-0500 Heart rate 67 /min DEMI HUSTON MD [facility] 06-13-2023 00:03-0500 Respiratory rate 20 /min DEMI HUSTON MD [facility] 06-13-2023 00:03-0500 Systolic Blood Pressure Non-Invasive 153 mm[Hg] DEMI HUSTON MD [facility] 06-09-2023 21:35-0500 Heart rate 60 /min MOY WATTS MD [facility] 06-09-2023 21:35-0500 Reason For Taking VItal Signs MOY WATTS MD [facility] 06-09-2023 21:35-0500 Respiratory rate 18 /min MOY WATTS MD [facility] 06-09-2023 19:40-0500 Blood Pressure Cuff Size MOY WATTS MD [facility] 06-09-2023 19:40-0500 Blood Pressure Location MOY WATTS MD [facility] 06-09-2023 19:40-0500 Blood Pressure Method MOY WATTS MD [address] [place] [address] 06-09-2023 19:40-0500 Body temperature 98.24 [degF] MOY WATTS MD [address] [place] [address] 06-09-2023 19:40-0500 Diastolic Blood Pressure Non-Invasive 66 mm[Hg] MOY WATTS MD [address] [place] [address] 06-09-2023 19:40-0500 Heart rate 63 /min MOY WATTS MD [address] [place] [address] 06-09-2023 19:40-0500 Reason For Taking VItal Signs MOY WATTS MD [address] [place] [address] 06-09-2023 19:40-0500 Respiratory rate 18 /min MOY WATTS MD [address] [place] [address] 06-09-2023 19:40-0500 Systolic Blood Pressure Non-Invasive 112 mm[Hg] MOY WTATS MD [address] [place] [address] 06-09-2023 19:29-0500 Heart rate 63 /min MOY WATTS MD [address] [place] [address] 06-09-2023 16:56-0500 Heart rate 66 /min MOY WATTS MD [address] [place] [address] 06-09-2023 16:04-0500 Blood Pressure Cuff Size MOY WATTS MD [address] [place] [address] 06-09-2023 16:04-0500 Blood Pressure Location MOY WATTS MD [address] [place] [address] 06-09-2023 16:04-0500 Blood Pressure Method MOY WATTS MD [address] [place] [address] 06-09-2023 16:04-0500 Body temperature 97.88 [degF] MOY WATTS MD [address] [place] [address] 06-09-2023 16:04-0500 Diastolic Blood Pressure Non-Invasive 78 mm[Hg] MOY WATTS MD [address] [place] [address] 06-09-2023 16:04-0500 Reason For Taking VItal Signs MOY WATTS MD [address] [place] [address] 06-09-2023 16:04-0500 Respiratory rate 18 /min MOY WATTS MD [address] [place] [address] 06-09-2023 16:04-0500 Systolic Blood Pressure Non-Invasive 138 mm[Hg] MOY WATTS MD [address] [place] [address] 06-09-2023 11:17-0500 Blood Pressure Cuff Size MOY WATTS MD [address] [place] [address] 06-09-2023 11:17-0500 Blood Pressure Location MOY WATTS MD [address] [place] [address] 06-09-2023 11:17-0500 Blood Pressure Method MOY WATTS MD [address] [place] [address] 06-09-2023 11:17-0500 Body temperature 97.88 [degF] MOY WATTS MD [address] [place] [address] 06-09-2023 11:17-0500 Diastolic Blood Pressure Non-Invasive 64 mm[Hg] MOY WATTS MD [address] [place] [address] 06-09-2023 11:17-0500 Systolic Blood Pressure Non-Invasive 126 mm[Hg] MOY WATTS MD [address] [place] [address] 06-09-2023 08:54-0500 Heart rate 66 /min MOY WATTS MD [address] 06-08-2023 23:49-0500 Mean blood pressure 77 mm[Hg] MOY WATTS MD [address] [place] [address] 06-08-2023 17:50-0500 Heart rate 65 /min MOY WATTS MD [address] [place] [address] 06-08-2023 14:06-0500 Heart rate 58 /min MOY WATTS MD [address] [place] [address] 06-08-2023 07:05-0500 Mean blood pressure 90 mm[Hg] MOY WATTS MD [address] [place] [address] 06-07-2023 13:36-0500 Body height 176 cm MOY WATTS MD [address] [place] [address] 06-07-2023 13:36-0500 Body weight 152.9 kg MOY WATTS MD [address] 06-07-2023 13:36-0500 Body weight 49.36 kg/m2 MOY WATTS MD [facility] 05-05-2023 20:50-0500 Diastolic Blood Pressure Non-Invasive 79 mm[Hg] DEMI HUSTON MD [facility] 05-05-2023 20:50-0500 Heart rate 84 /min DEMI HUSTON MD [facility] 05-05-2023 20:50-0500 Respiratory rate 20 /min DEMI HUSTON MD [facility] 05-05-2023 20:50-0500 Systolic Blood Pressure Non-Invasive 132 mm[Hg] DEMI HUSTON MD [facility] 05-05-2023 17:16-0500 Body height 175.3 cm DEMI HUSTON MD [facility] 05-05-2023 17:16-0500 Body temperature 97.88 [degF] DEMI HUSTON MD [facility] 05-05-2023 17:16-0500 Body weight 144.4 kg DEMI HUSTON MD [facility] 05-05-2023 17:16-0500 Diastolic Blood Pressure Non-Invasive 88 mm[Hg] DEMI HUSTON MD [facility] 05-05-2023 17:16-0500 Heart rate 68 /min DEMI HUSTON MD [facility] 05-05-2023 17:16-0500 Respiratory rate 20 /min DEMI HUSTON MD [facility] 05-05-2023 17:16-0500 Systolic Blood Pressure Non-Invasive 142 mm[Hg] DEMI HUSTON MD [facility] 02-12-2023 07:06-0400 Body height 175.26 cm [facility] 02-12-2023 07:06-0400 Body mass index (BMI) [Ratio] 49.5 kg/m2 [facility] 02-12-2023 07:06-0400 Body temperature 97.8 [degF] [facility] 02-12-2023 07:06-0400 Body weight 152.1 kg [facility] 02-12-2023 07:06-0400 Diastolic blood pressure 101 mm[Hg] [facility] 02-12-2023 07:06-0400 Heart rate 98 /min [facility] 02-12-2023 07:06-0400 Respiratory rate 16 /min [facility] 02-12-2023 07:06-0400 SaO2% (BldA) [Mass fraction] 95 % [facility] 02-12-2023 07:06-0400 Systolic blood pressure 132 mm[Hg] [facility] 12-23-2022 07:51-0400 Diastolic Blood Pressure Non-Invasive 68 1 MOY WATTS MD [address] [place] [address] 12-23-2022 07:51-0400 Heart rate 61 /min MOY WATTS MD [address] [place] [address] 12-23-2022 07:51-0400 Respiratory rate 12 /min MOY WATTS MD [address] [place] [address] 12-23-2022 07:51-0400 Systolic Blood Pressure Non-Invasive 106 1 MOY WATTS MD [address] [place] [address] 12-23-2022 07:39-0400 Diastolic Blood Pressure Non-Invasive 60 1 MOY WATTS MD [address] [place] [address] 12-23-2022 07:39-0400 Heart rate 64 /min MOY WATTS MD [address] [place] [address] 12-23-2022 07:39-0400 Respiratory rate 20 /min MOY WATTS MD [address] [place] [address] 12-23-2022 07:39-0400 Systolic Blood Pressure Non-Invasive 97 1 MOY WATTS MD [address] [place] [address] 12-23-2022 07:34-0400 Diastolic Blood Pressure Non-Invasive 59 1 MOY WATTS MD [address] [place] [address] 12-23-2022 07:34-0400 Heart rate 62 /min MOY WATTS MD [facility] 12-23-2022 07:34-0400 Respiratory rate 16 /min MOY WATTS MD [facility] 12-23-2022 07:34-0400 Systolic Blood Pressure Non-Invasive 74 1 MOY WATTS MD [address] [place] [address] 12-23-2022 07:24-0400 Body temperature 97.34 [degF] MOY WATTS MD [address] 12-23-2022 07:20-0400 Heart rate 73 /min MOY WATTS MD [address] [place] [address] 12-23-2022 07:20-0400 Respiratory Rate - Anes 22 br/min MOY WATTS MD [address] 12-23-2022 07:15-0400 Heart rate 91 /min MOY WATTS MD [facility] 12-23-2022 07:15-0400 Respiratory Rate - Anes 18 br/min MOY WATTS MD [facility] 12-23-2022 06:37-0400 Body height 175.3 cm MOY WATTS MD [facility] 12-23-2022 06:34-0400 Body height 175.3 cm MOY WATTS MD [address] [place] [address] 12-23-2022 06:34-0400 Body temperature 95.54 [degF] MOY WATTS MD [facility] 12-23-2022 06:34-0400 Body weight 144 kg MOY WATTS MD [facility] 10-27-2022 06:49-0400 Body temperature 97.7 [degF] DR OLLIE BROOKE MD [facility] 10-27-2022 06:49-0400 Diastolic Blood Pressure Non-Invasive [address] OLLIE BROOKE MD [facility] 10-27-2022 06:49-0400 Heart rate 103 /min DR OLLIE BROOKE MD [facility] 10-27-2022 06:49-0400 Respiratory rate 22 /min DR OLLIE BROOKE MD [facility] 10-27-2022 06:49-0400 Systolic Blood Pressure Non-Invasive [address] OLLIE BROOKE MD [facility] 10-27-2022 06:14-0400 Body temperature 98.06 [degF] DR OLLIE BROOKE MD [facility] 10-27-2022 06:14-0400 Diastolic Blood Pressure Non-Invasive [address] OLLIE BROOKE MD [facility] 10-27-2022 06:14-0400 Heart rate 105 /min DR OLLIE BROOKE MD [facility] 10-27-2022 06:14-0400 Respiratory rate 22 /min DR OLLIE BROOKE MD [facility] 10-27-2022 06:14-0400 Systolic Blood Pressure Non-Invasive [address] OLLIE BROOKE MD [facility] 10-27-2022 05:05-0400 Body height 175.[address] OLLIE BROOKE MD [facility] 10-27-2022 05:05-0400 Body temperature 98.06 [degF] DR OLLIE BROOKE MD [facility] 10-27-2022 05:05-0400 Body weight [address] OLLIE BROOKE MD [facility] 10-27-2022 05:05-0400 Diastolic Blood Pressure Non-Invasive [address] OLLIE BROOKE MD [facility] 10-27-2022 05:05-0400 Heart rate 88 /min DR OLLIE BROOKE MD [facility] 10-27-2022 05:05-0400 Respiratory rate 22 /min DR OLLIE BROOKE MD [facility] 10-27-2022 05:05-0400 Systolic Blood Pressure Non-Invasive [address] OLLIE BROOKE MD [facility] 10-25-2022 01:00-0400 Heart rate 99 /min DEMI HUSTON MD [facility] 10-25-2022 01:00-0400 Systolic Blood Pressure Non-Invasive 139 1 DEMI HUSTON MD [facility] 10-25-2022 00:00-0400 Diastolic Blood Pressure Non-Invasive 94 1 DEMI HUSTON MD [facility] 10-25-2022 00:00-0400 Heart rate 102 /min DEMI HUSTON MD [facility] 10-25-2022 00:00-0400 Respiratory rate 18 /min DEMI HUSTON MD [facility] 10-25-2022 00:00-0400 Systolic Blood Pressure Non-Invasive 132 1 EDMI HUSTON MD [facility] 10-24-2022 23:21-0400 Body height 175.3 cm DEMI HUSTON MD [facility] 10-24-2022 23:21-0400 Body temperature 98.24 [degF] DEMI HUSTON MD [facility] 10-24-2022 23:21-0400 Body weight 139 kg DEMI HUSTNO MD [facility] 10-24-2022 23:21-0400 Diastolic Blood Pressure Non-Invasive 99 1 DEMI HUSTON MD [facility] 10-24-2022 23:21-0400 Heart rate 105 /min DEMI HUSTON MD [facility] 10-24-2022 23:21-0400 Respiratory rate 19 /min DEMI HUSTON MD [facility] 10-24-2022 23:21-0400 Systolic Blood Pressure Non-Invasive 146 1 DEMI HUSTON MD [facility] 10-23-2022 10:51-0400 Diastolic blood pressure 76 mm[Hg] [facility] 10-23-2022 10:51-0400 Heart rate 73 /min [facility] 10-23-2022 10:51-0400 Respiratory rate 15 /min [facility] 10-23-2022 10:51-0400 SaO2% (BldA) [Mass fraction] 98 % [facility] 10-23-2022 10:51-0400 Systolic blood pressure 148 mm[Hg] [facility] 10-23-2022 05:58-0400 Body height 175.26 cm [facility] 10-23-2022 05:58-0400 Body mass index (BMI) [Ratio] 47.7 kg/m2 [facility] 10-23-2022 05:58-0400 Body temperature 97.6 [degF] [facility] 10-23-2022 05:58-0400 Body weight 146.8 kg [facility] 07-15-2022 21:40-0500 Diastolic Blood Pressure Non-Invasive 85 1 JEREMIE MCCORMACK MD [facility] 07-15-2022 21:40-0500 Heart rate 72 /min JEREMIE MCCORMACK MD [facility] 07-15-2022 21:40-0500 Respiratory rate 18 /min JEREMIE MCCORMACK MD [facility] 07-15-2022 21:40-0500 Systolic Blood Pressure Non-Invasive 148 1 JEREMIE MCCORMACK MD [facility] 07-15-2022 21:10-0500 Reason For Taking VItal Signs JEREMIE MCCORMACK MD [facility] 07-15-2022 20:42-0500 Body temperature 98.06 [degF] JEREMIE MCCORMACK MD [facility] 07-15-2022 20:42-0500 Diastolic Blood Pressure Non-Invasive 95 1 JEREMIE MCCORMACK MD [facility] 07-15-2022 20:42-0500 Heart rate 81 /min JEREMIE MCCORMACK MD [facility] 07-15-2022 20:42-0500 Respiratory rate 18 /min JEREMIE MCCORMACK MD [facility] 07-15-2022 20:42-0500 Systolic Blood Pressure Non-Invasive 149 1 JEREMIE MCCORMACK MD [facility] 07-11-2022 08:21-0500 Body height 175.3 cm MALORIE PEGUERO MD [facility] 07-11-2022 08:21-0500 Body temperature 97.7 [degF] MALORIE PEGUERO MD [facility] 07-11-2022 08:21-0500 Body weight 148.6 kg MALORIE PEGUERO MD [facility] 07-11-2022 08:21-0500 Diastolic Blood Pressure Non-Invasive 80 1 MALORIE PEGUERO MD [facility] 07-11-2022 08:21-0500 Heart rate 88 /min MALORIE PEGUERO MD [facility] 07-11-2022 08:21-0500 Respiratory rate 24 /min MALORIE PEGUERO MD [facility] 07-11-2022 08:21-0500 Systolic Blood Pressure Non-Invasive 150 1 MALORIE PEGUERO MD [facility] Encounters Encounter Date Encounter Type Care Provider Facility Start: 10-28-2024 ambulatory Isadora Correa NP Facil ity:[facility] Start: 10-24-2024 ambulatory Isadora Correa NP Facil ity:[facility] Start: 10-16-2024 End: 10-23-2024 Evaluation and management of inpatient NANI QUINTANA [facility] Start: 10-16-2024 End: 10-16-2024 Emergency department patient visit JAKE Guo MAXWELL [facility] Start: 10-02-2024 End: 10-04-2024 Evaluation and management of inpatient DR ROBERT SCHMITZ MD [facility] Start: 10-02-2024 End: 10-02-2024 Emergency department patient visit DELORES MURO DO [facility] Start: 09-05-2024 ambulatory ISADORA CORREA [employer] TE[employer] DEVELOPMENT MANAGER Facility:[facility] Start: 08-29-2024 End: 08-29-2024 Emergency department patient visit CIRILO MEGHANBaljinder STONE Facility:[facility] Start: 08-27-2024 End: 08-27-2024 ambulatory ISADORA CORREA [employer] TE[employer]ER-[employer]ADER[employer] DEVELOPMENT MANAGER [facility] Start: 08-13-2024 End: 08-13-2024 Emergency department patient visit DR WILNER JOE MD Facility:[facility] Start: 05-14-2024 End: 05-14-2024 ambulatory ISADORA CORREA [employer] TE[employer]ER-[employer]ADER[employer] DEVELOPMENT MANAGER [facility] Start: 05-14-2024 End: 05-14-2024 Patient encounter procedure ISADORA CORREA SE[employer] TE[employer]ER-LEADERSHIP DEVELOPMENT MANAGER [facility] Start: 03-25-2024 ambulatory ISADORA CORREA [employer] TE[employer]ER-LEADERSHIP DEVELOPMENT MANAGER Facility:[facility] Start: 03-25-2024 End: 03-29-2024 ambulatory HELEN YANES SEBD TEACHER-LEADERSHIP DEVELOPMENT MANAGER [facility] Start: 03-25-2024 End: 03-29-2024 Outreach Lab HELEN YANES SEBD TEACHER-LEADERSHIP DEVELOPMENT MANAGER [facility] Start: 02-16-2024 End: 02-16-2024 ambulatory ISADORA CORREA SEBD TEACHER-LEADERSHIP DEVELOPMENT MANAGER [facility] Start: 02-16-2024 End: 02-16-2024 Patient encounter procedure ISADORA CORREA SEBD TEACHER-LEADERSHIP DEVELOPMENT MANAGER [facility] Start: 02-12-2024 End: 02-12-2024 ambulatory ISADORA CORREA SEBD TEACHER-LEADERSHIP DEVELOPMENT MANAGER Facility:[facility] Start: 02-12-2024 End: 02-12-2024 Patient encounter procedure ISADORA CORREA SE[employer] TE[employer]ER[employer]ADER[employer] DEVELOPMENT MANAGER [facility] Start: 01-31-2024 End: 02-01-2024 Evaluation and management of inpatient ISADORA CORREA Facility:[facility] Start: 01-30-2024 End: 01-31-2024 Emergency department patient visit DR SAMY JONES MD [facility] Start: 10-11-2023 End: 10-11-2023 ambulatory [facility] Start: 08-22-2023 End: 08-22-2023 ambulatory ISADORA CORREA Facility:[facility] Start: 08-22-2023 End: 08-22-2023 Patient encounter procedure ISADORA CORREA SE[employer] TE[employer]ER[employer]ADER[employer]IP DEVELOPMENT MANAGER [facility] Start: 08-09-2023 End: 08-09-2023 Emergency department patient visit DR OLLIE BROOKE MD [facility] Start: 08-08-2023 End: 08-12-2023 ambulatory ISADORA CORREA Facility:[facility] Start: 08-08-2023 End: 08-12-2023 Outreach Lab ISADORA CORREA SEBD TEACHER-LEADERSHIP DEVELOPMENT MANAGER [facility] Start: 08-08-2023 End: 08-08-2023 ambulatory ISADORA CORREA Facility:[facility] Start: 06-13-2023 End: 06-13-2023 Emergency department patient visit DEMI HUSTON MD [facility] Start: 06-07-2023 End: 06-09-2023 Evaluation and management of inpatient [facility]Y WATTS [facility] Start: 05-05-2023 End: 05-05-2023 Emergency department patient visit DEMI HUSTON MD [facility] Start: 05-03-2023 ambulatory JAD Coombs Facility:[facility] Start: 04-03-2023 End: 04-03-2023 ambulatory ISADORA CORREA Facility:[facility] Start: 04-03-2023 End: 04-03-2023 Patient encounter procedure JONNY HOFF SE[employer] TEACHER-LEADER[employer] DEVELOPMENT MANAGER [facility] Start: 03-22-2023 End: 03-22-2023 ambulatory ISADORA CORREA Facility:[facility] Start: 03-14-2023 ambulatory ISADORA CORREA Facility :[facility] Start: 02-22-2023 ambulatory ISADORA CORREA Facility :[facility] Start: 02-12-2023 End: 02-12-2023 Emergency department patient visit [facility] Work Phone: Start: 02-01-2023 End: 02-01-2023 Patient encounter procedure ISADORA CORREA SEBD TEACHER[employer]ADER[employer] DEVELOPMENT MANAGER [facility] Start: 12-23-2022 End: 12-23-2022 Minor Procedure MOY WATTS MD [facility] Start: 11-11-2022 End: 11-11-2022 Patient encounter procedure MOY WATTS MD [facility] Start: 10-27-2022 End: 10-27-2022 Emergency department patient visit DR OLLIE BROOKE MD [facility] Start: 10-24-2022 End: 10-25-2022 Emergency department patient visit DEIM HUSTON MD [address] [place] [address] Start: 10-23-2022 End: 10-23-2022 Emergency department patient visit [facility] Start: 07-15-2022 End: 07-15-2022 Emergency department patient visit JEREMIE MCCORMACK MD [facility] Start: 07-11-2022 End: 07-11-2022 Emergency department patient visit MALORIE PEGUERO MD [facility] Start: 07-05-2022 End: 07-05-2022 ambulatory [facility] Start: 04-12-2022 End: 04-12-2022 [facility] Start: 03-11-2022 ambulatory [facility] Facility: [facility] Start: 01-12-2022 End: 01-12-2022 [facility] [facility] Start: 08-24-2021 ambulatory [facility] Start: 08-17-2021 End: 08-18-2021 ambulatory [facility]. Start: 08-02-2021 ambulatory [facility] Procedures Date Procedure Procedure Detail Performing Clinician Start: 03-25-2024 Excision HELEN BALDERAS SEBD TEACHER-LEADERSHIP DEVELOPMENT MANAGER Comment on above: excision of multilob ulated lipomatous mass right forearm Start: 01-31-2024 Echocardiography CHUN CORREA SEBD TEACHER-LEADERSHIP DEVELOPMENT MANAGER Start: 02-12-2023 SARS-CoV-2 & FLU Ant igen (Rapid) Start: 02-12-2023 Viral antigen assay Start: 02-12-2023 Plain chest X-ray Start: 12-23-2022 Cardioversion JAD WATTS MD Start: 11-11-2022 Echocardiography JONNY HOFF SEBD TEACHER-LEADERSHIP DEVELOPMENT MANAGER Comment on above: 1. Left ventricle: T he cavity size is at the upper limits of normal. Wall thickness is moderately to severely increased. Systolic function is moderately to severely reduced. The estimated ejection fraction is 30-35%. Diastolic dysfunction present but unable to assess severity. 2. Ventricular septum: Septal motion is dyssynergic. 3. Mitral valve: There is mild regurgitation. 4. Left atrium: The atrium is severely dilated. 5. Right ventricle: The cavity size is mildly increased. The RV systolic pressure by Doppler is 40 mm Hg. 6. Right atrium: The atrium is dilated. The estimated right atrial pressure is 15 mm Hg Start: 10-23-2022 Plain chest X-ray Elbow region structu re (body structure) MALORIE PEGUERO MD Comment on above: bursitis - right Plan of Treatment Date Care Activity Detail Author Start: 10-23-2022 [facility] Patient Education [facility] Work Phone: Patient referral [facility] Work Phone: Immunizations Immunization Date Immunization Notes Care Provider Fa cility 04-12-2022 influenza virus vaccine, unspecified formulation MOY WATTS MD [facility] Comment on above: Result Comment: 2023: VIS DATE: 01/01/2021 04-12-2022 pneumococcal conjugate vaccine, 13 valent MOY WATTS MD [facility] Comment on above: Result Comment: 2023: VIS DATE: 07/02/2021 09-11-2020 SARS-CoV-2 (COVID-19 ) mRNA-1273 vaccine MOY WATTS MD [facility] 08-14-2020 SARS-CoV-2 (COVID-19 ) mRNA-1273 vaccine MOY WATTS MD [facility] Payers Date Payer Category Payer Self-pay 2024 Medicaid [id number] 2024 Private Health Insurance 5e [id number] 2023 Medicaid [id number] 1971 Unknown [id number] 2.16.8 40.1.119630.3.579.2.1076 1971 Unknown [id number] 2.16. 840.1.063002.3.579.2.297 1971 Unknown [id number] 2.16.8 40.1.523339.3.579.2.627 1971 Unknown [id number] 2.16.8 40.1.206247.3.579.2.627 1971 Unknown [id number] 2.16.8 40.1.469272.3.579.2.627 1971 Unknown [id number] 2.16.8 40.1.655880.3.579.2.627 1971 Unknown [id number] 2.16.8 40.1.175887.3.579.2.627 1971 Unknown [id number] 2.16.8 40.1.093373.3.579.2.627 1971 Unknown [id number] 2.16.8 40.1.556587.3.579.2.627 1971 Unknown [id number] 2.16.8 40.1.536213.3.579.2.627 1971 Unknown [id number] 2.16.8 40.1.584540.3.579.2.627 1971 Unknown [id number] 2.16.8 40.1.772831.3.579.2.627 1971 Unknown [id number] 2.16.8 40.1.472484.3.579.2.627 1971 Unknown [id number] 2.16.8 40.1.576866.3.579.2.7 1971 Unknown [id number] 2.16.8 40.1.616079.3.579.2. 1971 Unknown [id number] 2.16.8 40.1.125465.3.579.2. 1971 Unknown [id number] 2.16.8 40.1.096254.3.579.2. 1971 Unknown [id number] 2.16.8 40.1.467580.3.579.2. 1971 Unknown [id number] 2.16.8 40.1.502424.3.579.2. 1971 Unknown [id number] 2.16.8 40.1.842312.3.579.2. 1971 Unknown [id number] 2.16.8 40.1.539503.3.579.2. 1971 Unknown [id number] 2.16.8 40.1.042180.3.579.2. 1971 Unknown [id number] 2.16.8 40.1.798309.3.579.2. 1971 Unknown [id number] 2.16.8 40.1.862796.3.579.2. 1971 Unknown [id number] 2.16.8 40.1.369752.3.579.2. 1971 Unknown [id number] 2.16.8 40.1.759945.3.579.2. 1971 Unknown [id number] 2.16.8 40.1.975372.3.579.2. 1971 Unknown [id number] 2.16.8 40.1.416206.3.579.2.651 1971 Unknown [id number] 2.16.8 40.1.537030.3.579.2.627 1971 Unknown [id number] 2.16.8 40.1.129454.3.579.2.627 1971 Unknown [id number] 2.16.8 40.1.921024.3.579.2.627 Unknown [id number] Unknown [id number] 2.16.8 40.1.180202.3.579.2.443 Unknown [id number] 2.16.8 40.1.812061.3.579.2.462 Unknown [id number] 2.16.8 40.1.472714.3.579.2.462 Social History Date Type Detail Facility Start: 07-11-2022 End: 01-12-2024 Tobacco smoking status Ex-smoker (finding) [facility] Start: 1970 Sex Assigned At Male A [facility] Start: 10-23-2022 End: 02-12-2023 Tobacco smoking status [facility] Unknown if ever smoked [facility] Tobacco Nicotine Use: sn uff. Type: Oral (Snuff, Chew). [facility] Comment on above: using NicoDerm patch Stopped chewing snuf f October 2022 Tobacco smoking status [facility] Start: 06-07-2023 End: 08-08-2023 Tobacco smoking status Former smokeless tobacco user, quit more than 30 days ago [facility] Start: 07-11-2022 Sex Male (finding) [facility] Medical Equipment Procedure Code Equipment Code Equipment Origin al Text Equipment Identifier Dates See Instructions , 1 bottle of 100 Test once daily, # 1 EA, 11 Refill(s), Pharmacy: [facility], 177.8, cm, 11/28/23 13:54:00 EDT, Height, 151.4, kg, 11/28/23 13:54:00 EDT, Dosing Weight Start: 12-12-2023 See Instructions , qs 1 month supply Test once daily, # 1 EA, 11 Refill(s), Pharmacy: [facility], 177.8, cm, 11/28/23 13:54:00 EDT, Height, 151.4, kg, 11/28/23 13:54:00 EDT, Dosing Weight Start: 12-12-2023 See Instructions , 1 bottle of 100 Test once daily, # 1 EA, 11 Refill(s), Pharmacy: [facility], 177.8, cm, 11/28/23 13:54:00 EDT, Height, 151.4, kg, 11/28/23 13:54:00 EDT, Dosing Weight Start: 12-12-2023 See Instructions , qs 1 month supply Test once daily, # 1 EA, 11 Refill(s), Pharmacy: [facility], 177.8, cm, 11/28/23 13:54:00 EDT, Height, 151.4, kg, 11/28/23 13:54:00 EDT, Dosing Weight Start: 12-12-2023 See Instructions , 1 bottle of 100 Test once daily, # 1 EA, 11 Refill(s), Pharmacy: [facility], 177.8, cm, 11/28/23 13:54:00 EDT, Height, 151.4, kg, 11/28/23 13:54:00 EDT, Dosing Weight Start: 12-12-2023 See Instructions , qs 1 month supply Test once daily, # 1 EA, 11 Refill(s), Pharmacy: [facility], 177.8, cm, 11/28/23 13:54:00 EDT, Height, 151.4, kg, 11/28/23 13:54:00 EDT, Dosing Weight Start: 12-12-2023 See Instructions , 1 bottle of 100 Test once daily, # 1 EA, 11 Refill(s), Pharmacy: [facility], 177.8, cm, 11/28/23 13:54:00 EDT, Height, 151.4, kg, 11/28/23 13:54:00 EDT, Dosing Weight Start: 12-12-2023 See Instructions , qs 1 month supply Test once daily, # 1 EA, 11 Refill(s), Pharmacy: [facility], 177.8, cm, 11/28/23 13:54:00 EDT, Height, 151.4, kg, 11/28/23 13:54:00 EDT, Dosing Weight Start: 12-12-2023 See Instructions , 1 bottle of 100 Test once daily, # 1 EA, 11 Refill(s), Pharmacy: [facility], 177.8, cm, 11/28/23 13:54:00 EDT, Height, 151.4, kg, 11/28/23 13:54:00 EDT, Dosing Weight Start: 12-12-2023 See Instructions , qs 1 month supply Test once daily, # 1 EA, 11 Refill(s), Pharmacy: [facility], 177.8, cm, 11/28/23 13:54:00 EDT, Height, 151.4, kg, 11/28/23 13:54:00 EDT, Dosing Weight Start: 12-12-2023 See Instructions , 1 bottle of 100 Test once daily, # 1 EA, 11 Refill(s), Pharmacy: [facility], 177.8, cm, 11/28/23 13:54:00 EDT, Height, 151.4, kg, 11/28/23 13:54:00 EDT, Dosing Weight Start: 12-12-2023 See Instructions , qs 1 month supply Test once daily, # 1 EA, 11 Refill(s), Pharmacy: [facility], 177.8, cm, 11/28/23 13:54:00 EDT, Height, 151.4, kg, 11/28/23 13:54:00 EDT, Dosing Weight Start: 12-12-2023 Extremity Psychiatric Nursing Aide al Fixator Application L Unknown 10/17/24 Unknown Unknown FDA Start: 10-17-2024 Extremity Psychiatric Nursing Aide al Fixator Application L Unknown 10/17/24 Unknown Unknown FDA Start: 10-17-2024 Extremity Psychiatric Nursing Aide al Fixator Application L Unknown 10/17/24 Unknown Unknown FDA Start: 10-17-2024 Extremity Psychiatric Nursing Aide al Fixator Application L Unknown 10/17/24 Unknown Unknown FDA Start: 10-17-2024 Extremity Psychiatric Nursing Aide al Fixator Application L Unknown 10/17/24 Unknown Unknown FDA Start: 10-17-2024 Extremity Psychiatric Nursing Aide al Fixator Application L Unknown 10/17/24 Unknown Unknown FDA Start: 10-17-2024 Functional Status Date Assessment Result Facility 10-04-2024 Functional Status Room located n ear nursing station, Door open, Bathroom light on, Non-Slip footwear, Room check performed [facility] 10-04-2024 Functional Status Larry [facility] 10-04-[address] [facility] 10-04-2024 Functional Status Breakfast Percent 80 [facility] 10-04-2024 [facility] Functional Status Done [facility] 10-03-2024 Functional Status Sequential Com pression Device bilateral knee high removed/off [facility] 10-02-2024 Functional Status ID band on, Call device within reach, Bed in low position [facility] 02-01-2024 Functional Status Room check performed [facility] 02-01-20[address] [facility] 02-01-2024 [facility] Functional Status Maintained [facility] 01-31-2024 Functional [address] [facility] 01-31-2024 Functional Status 7pm-7am [facility] 01-31-2024 Functional Status Living Situati on Lives with family [facility] 01-31-2024 Functional Status Skin Care Prev entative Intervention(s) heel(s)s elevated, padded oxygen tubing, turn and position system [facility] 01-31-[address] [facility] 01-31-2024 Functional Status Independent [facility] 01-30-2024 Functional Status Standard Safet y ID band on, Call device within reach, Bed in low position, Wheels locked, Upper/Half-Length side-rails up, personal items within reach, Bedside Cart Locked, Visitor at bedside [facility] 08-09-2023 Functional Status Awake, Resting [facility] 06-13-2023 Functional Status ID band on, Call device within reach [facility] 06-09-2023 Functional Status Room check performed [facility] 06-09-2023 [facility] 06-09-[address] [facility] 06-09-[address] [facility] 06-08-2023 Functional Status Home independe ntly, Lives with significant other [facility] 06-08-2023 Functional Status Skin Care Prev entative Intervention(s) padded oxygen tubing [facility] 06-08-2023 Functional Status bilateral knee high removed/off [facility] 06-07-2023 Functional Status Sensory Deficits None A [facility] 05-05-2023 Functional Status Assistive Device None A [facility] 05-05-2023 Functional Status Standard Safet y ID band on, Call device within reach, Bed in low position, Wheels locked, Visitor at bedside [facility] 12-23-2022 Functional Status Ambulating in room, Awake [facility] 12-23-2022 Functional Status Maintained Larry [facility] 10-27-2022 Functional Status Room check performed [facility] 10-27-2022 Functional Status Larry [facility] 10-25-2022 Functional Status Independent Larry [facility] 10-24-2022 Functional Status Standard Safet y ID band on, Call device within reach, Bed in low position, Wheels locked, Upper/Half-Length side-rails up, personal items within reach, Visitor at bedside [facility] 07-15-2022 Functional Status Room check performed [facility] 07-11-2022 [facility] Mental Status Date Assessment Result Facility 10-04-2024 Mental Status Oriented x 4 [facility] 10-04-2024 Mental Status [facility] 10-04-2024 Mental Status [facility] 10-02-2024 Mental Status Orientation Oriented x 4 [facility] 02-01-2024 Mental Status Orientation Oriented x 4 [facility] 02-01-2024 Mental Status [facility] 01-31-2024 Mental Status [facility] 01-31-2024 Mental Status [facility] 01-30-2024 Mental Status Orientation Oriented x 4 [facility] 08-09-2023 Mental Status Oriented x 4 [facility] 06-13-2023 Mental Status Orientation Oriented x 4 [facility] 06-09-2023 Mental Status Oriented x 4 [facility] 06-09-2023 Mental Status [facility] 06-09-2023 Mental Status [facility] 06-08-2023 Mental Status [facility] 05-05-2023 Mental Status Orientation Oriented x 4 [facility] 05-05-2023 Mental Status [facility] 12-23-2022 Mental Status Oriented x 4 [facility] 10-27-2022 Mental Status Orientation Oriented x 4 [facility] 10-27-2022 Mental Status [facility] 10-25-2022 Mental Status Orientation Oriented x 4 [facility] 10-24-2022 Mental Status [facility] 10-23-2022 Cognitive function Voice/Name [facility] Work Phone: 07-15-2022 Mental Status Oriented x 4 [facility] 07-11-2022 Mental Status Oriented x 4 [facility] Clinical Notes 02-07-2022 to 10-23-2024 Note Date & Type Note Facility 10-23-2024 Hospital Discharg e instructions Patient Education 10/23/2024 17:07:48 How to Use a Walker How to Use a Walker This sheet gives you information about how to use a walker. Your health care provider may also: Give you more specific instructions based on your condition. Give you instructions on how to use your legs or arms to support your body weight (weight bearing). What are the risks? Using a walker is generally safe. However, it may cause falls if it is not used correctly. How to walk with a walker The best way to walk with a walker depends on whether you are using a standard walker or a front-wheeled walker. A standard walker has rubber tips on the ends of all four legs. A front-wheeled walker has wheels on the ends of the front legs and rubber tips on the ends of the back legs. Do not use your walker on stairs or an escalator unless you have been trained by a physical therapist and your health care provider approves. Standard walker 1.motor tune up specialist your walker. Do not slide your standard walker. 2.Set down your walker, one step-length in front of you. Make sure that all four legs of the walker touch the ground at the same time. Your toes should be farther forward than the back legs of your walker. 3.Hold on to the walker, and press it with your arms for support. 4.Step your weaker leg into the middle of the walker. Step your stronger leg forward to land next to your weaker leg. 5.Repeat this process for each step. Front-wheeled walker 1.Slide your front-wheeled walker one step-length in front of you. Your toes should be farther forward than the back legs of your walker. 2.Hold on to the walker for support and press through the handrails as needed for support. 3.Step your weaker leg into the middle of the walker. Step your stronger leg forward to land next to your weaker leg. 4.Repeat the process for each step. Tips Always keep both feet within the width of the walker's legs or wheels. When using your walker, you should not feel like you need to lean forward or to the side to keep your hands on the handgrips. Make sure you are following any weight-bearing instructions that your health care provider gave you. If you have a standard walker: ?Do not slide your walker when you are moving. If you have a front-wheeled walker: ?Be careful not to let the walker get too far ahead of you as you walk. ?If your walker does not glide well over carpet, consider cutting an X into two tennis balls and placing the balls over the back legs of your walker. How to stand up with a walker 1.Put your walker in front of you. 2.Slide forward in your chair. 3.Position your legs so that your weaker leg is ahead of you and your stronger leg is bent and near your chair. 4.Position your hands. If your chair has armrests, put each hand on an armrest. If there are no armrests, put the hand opposite your weaker leg on the chair seat, and put the other hand on the center of the walker's crossbar. 5.Lean forward and push up from your chair. 6.Rise by straightening your stronger leg. 7.Steady yourself. 8.Carefully move your hands to the handgrips of the walker. Tips Do not pull on the walker when you stand up. This may cause it to tip. Sit in a firm chair whenever you can. A low seat or an overstuffed chair or sofa is hard to get out of. How to sit down with a walker Seat with armrests 1.Back up toward your seat, using your walker, until you feel the back of your legs touch the chair. 2.Carefully reach your hands behind you and put each hand on an armrest. 3.Slowly lower yourself into the seat with your injured leg out in front. Seat without armrests 1.Back up toward the side of the seat, using your walker, until you feel the back of your legs touch the chair. 2.Use one hand to hold on to the back of the chair, and use the other hand to hold on to the front of the seat. 3.Slowly lower yourself into the seat. How to use a walker on a curb or step Stepping up 1.Put all four legs of the walker on the curb or step. 2.Get your feet as close to the curb or step as you can. 3.Test the steadiness of the walker by pressing down on the handgrips. 4.If the walker is steady, press down on it with your hands as you step up with your stronger leg. 5.Step up with your weaker leg. Stepping down 1.Put all four legs of the walker on the surface that is lower than the curb or step. 2.Get your feet as close to the curb or step as you can. 3.Test the steadiness of the walker by pressing down on the handgrips. 4.If the walker is steady, press down on it with your hands as you step down with your weaker leg. 5.Step down with your stronger leg. Summary Follow specific instructions from your health care provider on how to use a walker. Do not use your walker on stairs or an escalator unless you have been trained by a physical therapist and your health care provider approves. Make sure you are following any weight-bearing instructions that your health care provider gave you. This information is not intended to replace advice given to you by your health care provider. Make sure you discuss any questions you have with your health care provider. Document Released: 05/15/2006 Document Revised: 04/10/2019 Document Reviewed: 04/10/2019 [employer] Patient Education 2020 [employer]. 10/23/2024 17:07:24 How to Care for an External Fixator How to Care for an External Fixator An external fixator is a device that holds a broken bone in a stable (fixed) position until it heals. This device is often used on the arms, legs, pelvis, or neck. It is attached to the bones with screws that are called pins or bolts. The pins are drilled into the bone on each side of the break and are attached to a metal or carbon fiber azar with nuts. When the bone is fully healed, the external fixator is removed. The type of external fixator that you have will depend on which bone is broken. Most people need an external fixator for 6 12 weeks. Sometimes, it is needed for up to 1 year for fractures that heal slowly or fractures that require slow alteration in alignment. What are the risks? Generally, external fixators are safe to wear. However, problems may occur, including infection at the pin sites. Supplies needed: Pin-cleaning solution. Sterile cotton swabs. Sterile split gauze. Square gauze. Clean washcloth. Towel. How to clean your pin sites Clean the pin sites two times a day or as often as told by your health care provider. Pin sites are the spots where the pins go through your skin. There are various types of pin-cleaning solutions. Use the solution that is recommended by your health care provider. 1.Wash your hands with soap and water. 2.Remove the old split gauze from each pin and discard it in a trash bin. 3.Wash your hands again with soap and water. 4.Pour the cleaning solution in a sterile container. 5.Dip a cotton swab in the solution. Swab around the base of the pin, where it meets your skin. Use a circular motion. If your skin has moved up onto the pin, gently push it back down. Remove any crusts that have formed on the pin. After you have swabbed the base of the pin, clean the rest of the pin. 6.Use a new swab for each pin. 7.Dry each pin site with a clean cotton swab. 8.If directed by your health care provider, apply an antibiotic ointment. 9.Place a new split gauze on each pin. Check the pin sites every day for signs of infection. Check for: Redness, swelling, or pain. Fluid or blood. Warmth. Pus or a bad smell. How to care for your external fixator Different types of external fixators will have different instructions for care. Your health care provider will tell you how to care for the type that you have. In general, you should: Examine your external fixator every day. ?Check for any loose pins. One sign of looseness is pain at the site where the pin exits the skin or pain at the site of the break. ?Make sure the nuts are tight. Your health care provider may show you how to tighten the nuts. However, do not make any adjustments to your external fixator unless told to do so by your health care provider. Clean the frame of the fixator two times a week or as often as told by your health care provider. 1.Use a square gauze or a clean washcloth that is moistened with rubbing alcohol and water to clean the frame. 2.After you clean the frame, wipe it dry with a towel. 3.Use a new gauze square or clean washcloth, and a clean towel for each cleaning. Follow these instructions at home: Bathing Do not take baths, swim, or use a hot tub until your health care provider approves. Ask your health care provider if you may take showers. You may only be allowed to take sponge baths. When you are allowed to shower, ask your health care provider if you need to cover your external fixator with a waterproof covering. General instructions Take [id number] and prescription medicines only as told by your health care provider. Return to your normal activities as told by your health care provider. Ask your health care provider what activities are safe for you. Keep all follow-up visits as told by your health care provider. This is important. Contact a health care provider if: You have redness, swelling, or pain at any pin site. You have fluid or blood coming from a pin site. A pin site feels warm to the touch. You have pus or a bad smell coming from a pin site. You have a fever. Get help right away if: A pin moves or becomes loose. You have increasing pain where your bone was broken. Summary An external fixator is a device that holds a broken bone in a stable (fixed) position until it heals. Most people need an external fixator for 6 12 weeks. Your health care provider will tell you how to care for the type of external fixator that you have. When the bone is fully healed, the external fixator is removed. This information is not intended to replace advice given to you by your health care provider. Make sure you discuss any questions you have with your health care provider. Document Released: 01/25/2012 Document Revised: 07/12/2019 Document Reviewed: 07/15/2019 [employer] Patient Education 2020 [employer]. Follow Up Care 10/16/2024 16:12:44 With:[facility], [facility], Address:Unknown When:1-2 days With:ISADORA CORREA [address] [place] [phone] Business (1) When:1-2 days With:NANI QUINTANA DO, Orthopedic Address: [address], [place] [address] [phone] When:3-7 days Comments:Please call office [facility] to confirm/verify follow up appointment. [facility] 10-23-2024 Note Discharge Instructions Thank you for allowing [facility] to assist you with your healthcare needs. The following is important discharge information regarding your hospital visit. 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 The Following Activity and Diet Have Been Ordered for You Transfer of Care Activity - Ordered -- Other, Nonweightbearing right lower extremity. 50% partial weightbearing left lower extremity in a boot., 10/23/24 15:20:00 EDT Transfer of Care Diet - Ordered -- Type of Diet: Regular Diet, 10/23/24 15:20:00 EDT The Following Equipment Has Been Ordered for You Discharge Home Equipment Discharge Wound Care - Ordered -- Maintain aquacel dressing for 7 days then remove and preform daily dry dressing changes for saturation. Okay to shower with aquacel dressing and once removed., 10/17/24 9:54:00 EDT Transfer of Care Wound Care - Ordered -- EXFIX: Perform daily pinsite care. Clean pinsites with 50/50 mixture of normal saline/hydrogen peroxide then reapply dry sterile dressing. If there is bleeding or drainage, apply xeroform gauze prior to dry gauze or Kerlix., 10/23/24 15:20:00 EDT Transfer of Care Wound Care - Ordered -- Pin site care daily. Replace Xeroform gauze over fracture blisters daily. Xeroform followed by 4 x 4's., 10/23/24 15:20:00 EDT The Following Treatments Have Been Ordered for You Discharge Labs No qualifying data available. Discharge Radiology No qualifying data available. Other Therapies No qualifying data available. Post Acute Orders Transfer of Care Admission Level of Care - Ordered -- Level of Care SNF, 10/23/24 15:28:40 EDT Transfer of Care Code Status - Ordered -- Full Code, Constant Order Transfer of Care Communication Order - Ordered -- Expect less than 30 day stay., 10/23/24 15:28:40 EDT Transfer of Care Orders Electronically Signed By - Ordered -- 10/23/24 15:20:00 EDT, NANI QUINTANA DO Transfer of Care Prognosis - Ordered -- Good, Patient Aware: Yes Transfer of Care Rehab Potential - Ordered -- Rehab potential good, 10/23/24 15:20:34 EDT Someone Will Contact You Regarding These Home Health Referrals No home referrals have been ordered for you. No one will call you. Allergies Statins myalgia Medications Please ask your primary doctor or pharmacist before taking any other medication not listed, including over the counter drugs, herbal medications, vitamins and or supplements as they may interact with your home medications. What How Much When Why Instructions Last Dose Unchanged acetaminophen (Tylenol) 1,000 Milligram by mouth Every 4 hours as needed for as needed for pain Unchanged acetaminophen-oxyCODONE (Percocet 5 mg-325 mg oral tablet) 1 tab(s) by mouth Every 6 hours Post-op pain Duration: 7 Days Pickup at [facility]/pharmacy #[id number] Unchanged albuterol (albuterol 2.5 mg/ 3 mL (0.083%) inhalation solution) 3 Milliliter by inhalation Every 6 hours Unchanged allopurinol (allopurinol 100 mg oral tablet) 1 tab(s) by mouth Once a day Unchanged bempedoic acid (Nexletol 180 mg oral tablet) 1 tab(s) by mouth Once a day Unchanged budesonide-formoterol (Symbicort 80 mcg-4.5 mcg/ inh Inhaler) 2 puff(s) by inhalation Two (2) times a day Duration: 90 Days Unchanged cetirizine (cetirizine 10 mg oral tablet) 1 tab(s) by mouth Every day Duration: 90 Days Unchanged dofetilide (Tikosyn 250 mcg oral capsule) 1 cap by mouth Two (2) times a day Unchanged dulaglutide (Trulicity Pen 1.5 mg/ 0.5 mL subcutaneous solution) 1.5 Milligram Subcutaneous Every week Duration: 90 Days Unchanged DULoxetine (DULoxetine 20 mg oral delayed release capsule) 1 cap by mouth Once a day Unchanged hydrOXYzine (Vistaril 25 mg oral capsule) 1 cap by mouth Four (4) times a day as needed for as needed for anxiety Duration: 30 Days Unchanged metoprolol (Toprol-XL 100 mg oral tablet, extended release) 1 tab(s) by mouth Two (2) times a day Shortness of breath Duration: 90 Days do not crush or chew Unchanged omeprazole (omeprazole 40 mg oral delayed release capsule) 1 cap by mouth Two (2) times a day before a meal. Unchanged potassium chloride (Potassium Chloride (Eqv-K-Tab) 10 mEq oral tablet, extended release) 1 tab(s) by mouth Once a day Unchanged potassium chloride (Potassium Chloride (Eqv-K-Tab) 20 mEq oral tablet, extended release) 1 tab(s) by mouth Once a day Take with food Unchanged pravastatin (pravastatin 40 mg oral tablet) 1 tab(s) by mouth Once a day Unchanged rivaroxaban (Xarelto 20 mg oral tablet) 1 tab(s) by mouth Daily at bedtime Unchanged spironolactone (spironolactone 25 mg oral tablet) 1 tab(s) by mouth Once a day Duration: 90 Days Unchanged tiZANidine (tiZANidine 2 mg oral tablet) 1 tab(s) by mouth Every 8 hours as needed for as needed for muscle spasm Duration: 7 Days Unchanged traZODone (traZODone 100 mg oral tablet) 1 tab(s) by mouth Daily at bedtime Pharmacy Information [facility]/pharmacy #[id number]: [address], [place] [phone] Please take this list to your next doctor s visit. Bring all medications you take, including over the counter medications, herbals and other supplements with you to your doctor s visit. Patients and families are reminded to discard old lists and to update any records with all medication providers or retail pharmacies. Medication Leaflets acetaminophen and oxycodone (a SEET a MIN oh fen and OX i KOE done) Endocet 10/325, Endocet 2.5/325, Endocet 5/325, Endocet 7.5/325, Nalocet, Percocet, Prolate What is the most important information I should know about acetaminophen and oxycodone? MISUSE OF OPIOID MEDICINE CAN CAUSE ADDICTION, OVERDOSE, OR . Keep the medication in a place where others cannot get to it. Taking opioid medicine during may cause life-threatening withdrawal symptoms in the . Fatal side effects can occur if you use opioid medicine with alcohol, or with other drugs that cause drowsiness or slow your breathing. Stop taking this medicine and call your doctor right away if you have skin redness or a rash that spreads and causes blistering and peeling. What is acetaminophen and oxycodone? Acetaminophen and oxycodone is a combination medicine used to relieve moderate to severe pain. Acetaminophen and oxycodone contains an opioide medicine and may be habit-forming. Acetaminophen and oxycodone may also be used for purposes not listed in this medication guide. What should I discuss with my healthcare provider before taking acetaminophen and oxycodone? You should not use this medicine if you are allergic to acetaminophen or oxycodone, or if you have: severe asthma or breathing problems; or a blockage in your stomach or intestines. Tell your doctor if you have ever had: breathing problems, sleep apnea; liver disease; a drug or alcohol addiction; kidney disease; a head injury or seizures; urination problems; or problems with your thyroid, pancreas, or gallbladder. If you use opioid medicine while you are , your baby could become dependent on the drug. This can cause life-threatening withdrawal symptoms in the baby after it is born. Babies born dependent on opioids may need medical treatment for several weeks. Ask a doctor before using opioid medicine if you are . Tell your doctor if you notice severe drowsiness or slow breathing in the nursing baby. How should I take acetaminophen and oxycodone? Follow all directions on your prescription label. Never take this medicine in larger amounts, or for longer than prescribed. An overdose can damage your liver or cause . Tell your doctor if you feel an increased urge to use more of this medicine. Never share opioid medicine with another person, especially someone with a history of drug abuse or addiction. MISUSE CAN CAUSE ADDICTION, OVERDOSE, OR . Keep the medicine in a place where others cannot get to it. Selling or giving away opioid medicine is against the law. Measure liquid medicine carefully. Use the dosing syringe provided, or use a medicine dose-measuring device (not a kitchen spoon). If you need surgery or medical tests, tell the doctor ahead of time that you are using this medicine. You should not stop using this medicine suddenly. Follow your doctor's instructions about tapering your dose. Store at room temperature away from moisture and heat. Keep track of your medicine. You should be aware if anyone is using it improperly or without a prescription. Do not keep leftover opioid medication. Just one dose can cause in someone using this medicine accidentally or improperly. Ask your pharmacist where to locate a drug take-back disposal program. If there is no take-back program, flush the unused medicine down the toilet. What happens if I miss a dose? Since this medicine is used for pain, you are not likely to miss a dose. Skip any missed dose if it is almost time for your next dose. Do not use two doses at one time. What happens if I overdose? Seek emergency medical attention or call the Poison Help line at . An overdose of this medicine can be fatal, especially in a child or other person using the medicine without a prescription. Overdose symptoms may include nausea, vomiting, sweating, severe drowsiness, pinpoint pupils, slow breathing, or no breathing. Your doctor may recommend you get naloxone (a medicine to reverse an opioid overdose) and keep it with you at all times. A person caring for you can give the naloxone if you stop breathing or don't wake up. Your caregiver must still get emergency medical help and may need to perform CPR (cardiopulmonary resuscitation) on you while waiting for help to arrive. Anyone can buy naloxone from a pharmacy or local health department. Make sure any person caring for you knows where you keep naloxone and how to use it. What should I avoid while taking acetaminophen and oxycodone? Avoid driving or operating machinery until you know how this medicine will affect you. Dizziness or drowsiness can cause falls, accidents, or severe injuries. Do not drink alcohol. Dangerous side effects or could occur. Ask a doctor or pharmacist before using any other medicine that may contain acetaminophen (sometimes abbreviated as APAP). Taking certain medications together can lead to a fatal overdose. What are the possible side effects of acetaminophen and oxycodone? Get emergency medical help if you have signs of an allergic reaction: hives; difficulty breathing; swelling of your face, lips, tongue, or throat. Opioid medicine can slow or stop your breathing, and may occur. A person caring for you should give naloxone and/or seek emergency medical attention if you have slow breathing with long pauses, blue colored lips, or if you are hard to wake up. In rare cases, acetaminophen may cause a severe skin reaction that can be fatal. This could occur even if you have taken acetaminophen in the past and had no reaction. Stop taking this medicine and call your doctor right away if you have skin redness or a rash that spreads and causes blistering and peeling. Call your doctor at once if you have: noisy breathing, sighing, shallow breathing, breathing that stops; a light-headed feeling, like you might pass out; weakness, tiredness, fever, unusual bruising or bleeding; confusion, unusual thoughts or behavior; problems with urination; liver problems--nausea, upper stomach pain, tiredness, loss of appetite, dark urine, jermain-colored stools, jaundice (yellowing of the skin or eyes); low cortisol levels-- nausea, vomiting, loss of appetite, dizziness, worsening tiredness or weakness; or high levels of serotonin in the body--agitation, hallucinations, fever, sweating, shivering, fast heart rate, muscle stiffness, twitching, loss of coordination, nausea, vomiting, diarrhea. Serious breathing problems may be more likely in older adults and in those who are debilitated or have wasting syndrome or chronic breathing disorders. Common side effects include: dizziness, drowsiness, feeling tired; feelings of extreme happiness or sadness; nausea, vomiting, stomach pain; constipation; or headache. This is not a complete list of side effects and others may occur. Call your doctor for medical advice about side effects. You may report side effects to FDA at 1-140-XKV-2165. What other drugs will affect acetaminophen and oxycodone? You may have breathing problems or withdrawal symptoms if you start or stop taking certain other medicines. Tell your doctor if you also use an antibiotic, antifungal medication, heart or blood pressure medication, seizure medication, or medicine to treat HIV or hepatitis C. Opioid medication can interact with many other drugs and cause dangerous side effects or . Be sure your doctor knows if you also use: cold or allergy medicines, bronchodilator asthma/COPD medication, or a diuretic ('water pill'); medicines for motion sickness, irritable bowel syndrome, or overactive bladder; other opioids--opioid pain medicine or prescription cough medicine; a sedative like Valium--diazepam, alprazolam, lorazepam, Xanax, Klonopin, Versed, and others; drugs that make you sleepy or slow your breathing--a sleeping pill, muscle relaxer, medicine to treat mood disorders or mental illness; drugs that affect serotonin levels in your body--a stimulant, or medicine for depression, Parkinson's disease, migraine headaches, serious infections, or nausea and vomiting. This list is not complete. Other drugs may affect acetaminophen and oxycodone, including prescription and yyto-iyz-yvhdznb medicines, vitamins, and herbal products. Not all possible interactions are listed here. Where can I get more information? Your doctor or pharmacist can provide more information about acetaminophen and oxycodone. Remember, keep this and all other medicines out of the reach of children, never share your medicines with others, and use this medication only for the indication prescribed. Every effort has been made to ensure that the information provided by [employer]. ('[employer]') is accurate, up-to-date, and complete, but no guarantee is made to that effect. Drug information contained herein may be time sensitive. [employer] information has been compiled for use by healthcare practitioners and consumers in the [place] and therefore [employer] does not warrant that uses outside of the [place] are appropriate, unless specifically indicated otherwise. [employer] drug information does not endorse drugs, diagnose patients or recommend therapy. [employer] drug information is an informational resource designed to assist licensed healthcare practitioners in caring for their patients and/or to serve consumers viewing this service as a supplement to, and not a substitute for, the expertise, skill, knowledge and judgment of healthcare practitioners. The absence of a warning for a given drug or drug combination in no way should be construed to indicate that the drug or drug combination is safe, effective or appropriate for any given patient. [employer] does not assume any responsibility for any aspect of healthcare administered with the aid of information [employer] provides. The information contained herein is not intended to cover all possible uses, directions, precautions, warnings, drug interactions, allergic reactions, or adverse effects. If you have questions about the drugs you are taking, check with your doctor, nurse or pharmacist. Copyright 5806-9556 [employer]. Version: 22.. Revision Date: 12/29/2022. Education Materials How to Use a Walker This sheet gives you information about how to use a walker. Your health care provider may also: Give you more specific instructions based on your condition. Give you instructions on how to use your legs or arms to support your body weight (weight bearing). What are the risks? Using a walker is generally safe. However, it may cause falls if it is not used correctly. How to walk with a walker The best way to walk with a walker depends on whether you are using a standard walker or a front-wheeled walker. A standard walker has rubber tips on the ends of all four legs. A front-wheeled walker has wheels on the ends of the front legs and rubber tips on the ends of the back legs. Do not use your walker on stairs or an escalator unless you have been trained by a physical therapist and your health care provider approves. Standard walker 1. motor tune up specialist your walker. Do not slide your standard walker. 2. Set down your walker, one step-length in front of you. Make sure that all four legs of the walker touch the ground at the same time. Your toes should be farther forward than the back legs of your walker. 3. Hold on to the walker, and press it with your arms for support. 4. Step your weaker leg into the middle of the walker. Step your stronger leg forward to land next to your weaker leg. 5. Repeat this process for each step. Front-wheeled walker 1. Slide your front-wheeled walker one step-length in front of you. Your toes should be farther forward than the back legs of your walker. 2. Hold on to the walker for support and press through the handrails as needed for support. 3. Step your weaker leg into the middle of the walker. Step your stronger leg forward to land next to your weaker leg. 4. Repeat the process for each step. Tips Always keep both feet within the width of the walker's legs or wheels. When using your walker, you should not feel like you need to lean forward or to the side to keep your hands on the handgrips. Make sure you are following any weight-bearing instructions that your health care provider gave you. If you have a standard walker: ? Do not slide your walker when you are moving. If you have a front-wheeled walker: ? Be careful not to let the walker get too far ahead of you as you walk. ? If your walker does not glide well over carpet, consider cutting an X into two tennis balls and placing the balls over the back legs of your walker. How to stand up with a walker 1. Put your walker in front of you. 2. Slide forward in your chair. 3. Position your legs so that your weaker leg is ahead of you and your stronger leg is bent and near your chair. 4. Position your hands. If your chair has armrests, put each hand on an armrest. If there are no armrests, put the hand opposite your weaker leg on the chair seat, and put the other hand on the center of the walker's crossbar. 5. Lean forward and push up from your chair. 6. Rise by straightening your stronger leg. 7. Steady yourself. 8. Carefully move your hands to the handgrips of the walker. Tips Do not pull on the walker when you stand up. This may cause it to tip. Sit in a firm chair whenever you can. A low seat or an overstuffed chair or sofa is hard to get out of. How to sit down with a walker Seat with armrests 1. Back up toward your seat, using your walker, until you feel the back of your legs touch the chair. 2. Carefully reach your hands behind you and put each hand on an armrest. 3. Slowly lower yourself into the seat with your injured leg out in front. Seat without armrests 1. Back up toward the side of the seat, using your walker, until you feel the back of your legs touch the chair. 2. Use one hand to hold on to the back of the chair, and use the other hand to hold on to the front of the seat. 3. Slowly lower yourself into the seat. How to use a walker on a curb or step Stepping up 1. Put all four legs of the walker on the curb or step. 2. Get your feet as close to the curb or step as you can. 3. Test the steadiness of the walker by pressing down on the handgrips. 4. If the walker is steady, press down on it with your hands as you step up with your stronger leg. 5. Step up with your weaker leg. Stepping down 1. Put all four legs of the walker on the surface that is lower than the curb or step. 2. Get your feet as close to the curb or step as you can. 3. Test the steadiness of the walker by pressing down on the handgrips. 4. If the walker is steady, press down on it with your hands as you step down with your weaker leg. 5. Step down with your stronger leg. Summary Follow specific instructions from your health care provider on how to use a walker. Do not use your walker on stairs or an escalator unless you have been trained by a physical therapist and your health care provider approves. Make sure you are following any weight-bearing instructions that your health care provider gave you. This information is not intended to replace advice given to you by your health care provider. Make sure you discuss any questions you have with your health care provider. Document Released: 05/15/2006 Document Revised: 04/10/2019 Document Reviewed: 04/10/2019 [employer] Patient Education 2020 [employer] How to Care for an External Fixator An external fixator is a device that holds a broken bone in a stable (fixed) position until it heals. This device is often used on the arms, legs, pelvis, or neck. It is attached to the bones with screws that are called pins or bolts. The pins are drilled into the bone on each side of the break and are attached to a metal or carbon fiber azar with nuts. When the bone is fully healed, the external fixator is removed. The type of external fixator that you have will depend on which bone is broken. Most people need an external fixator for 6 12 weeks. Sometimes, it is needed for up to 1 year for fractures that heal slowly or fractures that require slow alteration in alignment. What are the risks? Generally, external fixators are safe to wear. However, problems may occur, including infection at the pin sites. Supplies needed: Pin-cleaning solution. Sterile cotton swabs. Sterile split gauze. Square gauze. Clean washcloth. Towel. How to clean your pin sites Clean the pin sites two times a day or as often as told by your health care provider. Pin sites are the spots where the pins go through your skin. There are various types of pin-cleaning solutions. Use the solution that is recommended by your health care provider. 1. Wash your hands with soap and water. 2. Remove the old split gauze from each pin and discard it in a trash bin. 3. Wash your hands again with soap and water. 4. Pour the cleaning solution in a sterile container. 5. Dip a cotton swab in the solution. Swab around the base of the pin, where it meets your skin. Use a circular motion. If your skin has moved up onto the pin, gently push it back down. Remove any crusts that have formed on the pin. After you have swabbed the base of the pin, clean the rest of the pin. 6. Use a new swab for each pin. 7. Dry each pin site with a clean cotton swab. 8. If directed by your health care provider, apply an antibiotic ointment. 9. Place a new split gauze on each pin. Check the pin sites every day for signs of infection. Check for: Redness, swelling, or pain. Fluid or blood. Warmth. Pus or a bad smell. How to care for your external fixator Different types of external fixators will have different instructions for care. Your health care provider will tell you how to care for the type that you have. In general, you should: Examine your external fixator every day. ? Check for any loose pins. One sign of looseness is pain at the site where the pin exits the skin or pain at the site of the break. ? Make sure the nuts are tight. Your health care provider may show you how to tighten the nuts. However, do not make any adjustments to your external fixator unless told to do so by your health care provider. Clean the frame of the fixator two times a week or as often as told by your health care provider. 1. Use a square gauze or a clean washcloth that is moistened with rubbing alcohol and water to clean the frame. 2. After you clean the frame, wipe it dry with a towel. 3. Use a new gauze square or clean washcloth, and a clean towel for each cleaning. Follow these instructions at home: Bathing Do not take baths, swim, or use a hot tub until your health care provider approves. Ask your health care provider if you may take showers. You may only be allowed to take sponge baths. When you are allowed to shower, ask your health care provider if you need to cover your external fixator with a waterproof covering. General instructions Take ehgo-gbn-fvfopic and prescription medicines only as told by your health care provider. Return to your normal activities as told by your health care provider. Ask your health care provider what activities are safe for you. Keep all follow-up visits as told by your health care provider. This is important. Contact a health care provider if: You have redness, swelling, or pain at any pin site. You have fluid or blood coming from a pin site. A pin site feels warm to the touch. You have pus or a bad smell coming from a pin site. You have a fever. Get help right away if: A pin moves or becomes loose. You have increasing pain where your bone was broken. Summary An external fixator is a device that holds a broken bone in a stable (fixed) position until it heals. Most people need an external fixator for 6 12 weeks. Your health care provider will tell you how to care for the type of external fixator that you have. When the bone is fully healed, the external fixator is removed. This information is not intended to replace advice given to you by your health care provider. Make sure you discuss any questions you have with your health care provider. Document Released: 01/25/2012 Document Revised: 07/12/2019 Document Reviewed: 07/15/2019 [employer] Patient Education 2020 [employer] Additional Information VACCINATE! IT SAVES LIVES! Members of the community who have not yet received the COVID-19 vaccine and would like to receive it can visit one of [facility] vaccine clinics. There are many vaccine clinic locations within the [facility]. For locations and available times, please visit [email or web address] [email or web address] It is important to note that some COVID mobile vaccine clinics are held outdoors and may be canceled in rainy or stormy conditions. To learn more about pediatric vaccinations (ages 5-11), we invite you to visit the [facility] webpage. https://www.[email or web address].org/p ages/5604-Vwvft-Ugrvlenmgtm-Freq mfihur-Dhgsh-Kdallfcop.html To learn more about the COVID-19 vaccine, we invite you to visit the CDC website for a list of frequently asked questions.https://www.cdc.gov/co ronavirus/2019-ncov/vaccines/faq .html [employer] Patient Portal Access Instructions: Stay connected with your healthcare team and access your personal medical information anytime with the [employer] Patient Portal. Please follow the directions below to create your [facility] account: 1.Access the email account you provided upon registration to the hospital/physician office.2.Look for an invitation email from [facility].3.Open the email and access the invitation link: Accept Invitation to [facility].4.Fill in the required orr to create your account. To access your account, visit [email or web address]. Click the blue button labeled Access Patient Portal and then log in with the username and password that you created in the steps above. You will be able to view your test results, lab results, a summary of your visits, upcoming appointments and more. There is also a convenient messaging option where you can send secure messages to your provider. In addition, you will have the ability to download any documents or summaries to your computer and/or send the information securely to a physician. Remember that your healthcare information is confidential, so carefully consider who you will allow to register on the [facility] Patient Portal for access to your information. You can also access the [facility] Patient Portal on the [facility] frida. Simply click on Patient Portal and then log into your account. If you would like to receive a full copy of your medical records, please contact the [facility] Medical Records Department by calling [phone], Monday through Monday between 8 a.m. and 4:30 p.m. HOW TO SAFELY DISPOSE OF PRESCRIPTION MEDICATIONS Please use one of the following methods to safely dispose of your unused medications. 1.Use a drug disposal kit: the drug disposal pouch allows you to safely discard your old and unused drugs. Ask your nurse to give you one when you are discharged.2.Visit a local take-back location: Many local pharmacies and police departments have programs that collect old and unwanted prescription drugs. Call your local pharmacy or go to http://bit.ly/2Y8Mq4n to find one close to you.3.Make use of household items: Use cat litter or old coffee grounds to dispose medications if other options are not available. Mix your drugs with these household products, seal them in an airtight container and throw it into the garbage. Call [facility]: [phone] to be sure your drugs can be disposed of in this way. Some medicines may require a different approach.4.Never flush your medications down the toilet. IF YOU HAVE BEEN PRESCRIBED AN OPIOID FOR PAIN If you have been prescribed an opioid (such as hydrocodone, oxycodone or morphine), it is critical to understand the possible side effects and risks of opioid pain medications. Even when taken as directed, opioids can have several side effects including: Tolerance, meaning you might need to take more of a medication for the same pain relief. Nausea, vomiting and/or constipation. Sleepiness, dizziness, dry mouth, confusion, depression or itching. Physical dependence, meaning you have withdrawal symptoms when a medication is stopped, can develop within a few days. KNOW YOUR RESPONSIBILITIES It is important to know exactly how much and how often to take the opioid pain medications you are prescribed. Never take opioids in higher amounts or more often than prescribed. Do not combine opioids with alcohol or other drugs that cause drowsiness, such as benzodiazepines, also known as benzos, including diazepam and alprazolam, muscle relaxants or sleep aids. Never sell or share prescription opioids. This is illegal. Store opioids in a secure place and out of reach of others (including children, family, friends and visitors). The last page of this document has been signed and retained as a CHART COPY. Signatures Patient Education Materials How to Use a Walker How to Care for an External Fixator Medication Leaflets acetaminophen and oxycodone My discharge plan and instructions have been reviewed and explained to me and I,SOCORRO KELLEY understand my current condition and have read and understand these discharge instructions. I have received a written copy of the plan/instructions. If I have questions, I am aware that I should contact my doctor. Patient/Dealer Support Technician Signature: Date/Time: Relationship to Patient: Witness Name/Signature: Date/Time: [facility] 10-23-2024 Note Discharge Instructions Thank you for allowing [facility] to assist you with your healthcare needs. The following is important discharge information regarding your hospital visit. Your Care Team ISADORA CORREA Your Diagnosis Closed displaced bimalleolar fracture of right ankle Post-op pain Shortness of breath What to do next Scheduled Follow-Up Appointments Appointment Type When With Where Contact Information StatusCV OV Hospital Follow Up 11/08/2024 02:30 PM EDT EDY WEBER [facility] [place] CVC Confirmed PC OV 11/12/2024 03:30 PM EDT ISADORA CORREA [facility] Confirmed Follow Up Appointments Follow Up with [facility], [facility] emergency [facility], When:Within 1-2 days Follow Up with ISADORA CORREA When:Within 1-2 days Where:[address] [place] [address]- [phone] Business (1) Follow Up with NANI QUINTANA DO, Orthopedic When:Within 3-7 days Where:[address] [facility], [place] [address]- [phone] Additional Information: Please call office [facility] to confirm/verify follow up appointment. The Following Activity and Diet Have Been Ordered for You Transfer of Care Activity - Ordered -- Other, Nonweightbearing right lower extremity. 50% partial weightbearing left lower extremity in a boot., 10/23/24 15:20:00 EDT Transfer of Care Diet - Ordered -- Type of Diet: Regular Diet, 10/23/24 15:20:00 EDT The Following Equipment Has Been Ordered for You Discharge Home Equipment Discharge Wound Care - Ordered -- Maintain aquacel dressing for 7 days then remove and preform daily dry dressing changes for saturation. Okay to shower with aquacel dressing and once removed., 10/17/24 9:54:00 EDT Transfer of Care Wound Care - Ordered -- EXFIX: Perform daily pinsite care. Clean pinsites with 50/50 mixture of normal saline/hydrogen peroxide then reapply dry sterile dressing. If there is bleeding or drainage, apply xeroform gauze prior to dry gauze or Kerlix., 10/23/24 15:20:00 EDT Transfer of Care Wound Care - Ordered -- Pin site care daily. Replace Xeroform gauze over fracture blisters daily. Xeroform followed by 4 x 4's., 10/23/24 15:20:00 EDT The Following Treatments Have Been Ordered for You Discharge Labs No qualifying data available. Discharge Radiology No qualifying data available. Other Therapies No qualifying data available. Post Acute Orders Transfer of Care Admission Level of Care - Ordered -- Level of Care SNF, 10/23/24 15:28:40 EDT Transfer of Care Code Status - Ordered -- Full Code, Constant Order Transfer of Care Communication Order - Ordered -- Expect less than 30 day stay., 10/23/24 15:28:40 EDT Transfer of Care Orders Electronically Signed By - Ordered -- 10/23/24 15:20:00 EDT, NANI QUINTANA DO Transfer of Care Prognosis - Ordered -- Good, Patient Aware: Yes Transfer of Care Rehab Potential - Ordered -- Rehab potential good, 10/23/24 15:20:34 EDT Someone Will Contact You Regarding These Home Health Referrals No home referrals have been ordered for you. No one will call you. Allergies Statins myalgia Medications Please ask your primary doctor or pharmacist before taking any other medication not listed, including over the counter drugs, herbal medications, vitamins and or supplements as they may interact with your home medications. What How Much When Why Instructions Last Dose Unchanged acetaminophen (Tylenol) 1,000 Milligram by mouth Every 4 hours as needed for as needed for pain Unchanged acetaminophen-oxyCODONE (Percocet 5 mg-325 mg oral tablet) 1 tab(s) by mouth Every 6 hours Post-op pain Duration: 7 Days Pickup at [facility]/pharmacy #[id number] Unchanged albuterol (albuterol 2.5 mg/ 3 mL (0.083%) inhalation solution) 3 Milliliter by inhalation Every 6 hours Unchanged allopurinol (allopurinol 100 mg oral tablet) 1 tab(s) by mouth Once a day Unchanged bempedoic acid (Nexletol 180 mg oral tablet) 1 tab(s) by mouth Once a day Unchanged budesonide-formoterol (Symbicort 80 mcg-4.5 mcg/ inh Inhaler) 2 puff(s) by inhalation Two (2) times a day Duration: 90 Days Unchanged cetirizine (cetirizine 10 mg oral tablet) 1 tab(s) by mouth Every day Duration: 90 Days Unchanged dofetilide (Tikosyn 250 mcg oral capsule) 1 cap by mouth Two (2) times a day Unchanged dulaglutide (Trulicity Pen 1.5 mg/ 0.5 mL subcutaneous solution) 1.5 Milligram Subcutaneous Every week Duration: 90 Days Unchanged DULoxetine (DULoxetine 20 mg oral delayed release capsule) 1 cap by mouth Once a day Unchanged hydrOXYzine (Vistaril 25 mg oral capsule) 1 cap by mouth Four (4) times a day as needed for as needed for anxiety Duration: 30 Days Unchanged metoprolol (Toprol-XL 100 mg oral tablet, extended release) 1 tab(s) by mouth Two (2) times a day Shortness of breath Duration: 90 Days do not crush or chew Unchanged omeprazole (omeprazole 40 mg oral delayed release capsule) 1 cap by mouth Two (2) times a day before a meal. Unchanged potassium chloride (Potassium Chloride (Eqv-K-Tab) 10 mEq oral tablet, extended release) 1 tab(s) by mouth Once a day Unchanged potassium chloride (Potassium Chloride (Eqv-K-Tab) 20 mEq oral tablet, extended release) 1 tab(s) by mouth Once a day Take with food Unchanged pravastatin (pravastatin 40 mg oral tablet) 1 tab(s) by mouth Once a day Unchanged rivaroxaban (Xarelto 20 mg oral tablet) 1 tab(s) by mouth Daily at bedtime Unchanged spironolactone (spironolactone 25 mg oral tablet) 1 tab(s) by mouth Once a day Duration: 90 Days Unchanged tiZANidine (tiZANidine 2 mg oral tablet) 1 tab(s) by mouth Every 8 hours as needed for as needed for muscle spasm Duration: 7 Days Unchanged traZODone (traZODone 100 mg oral tablet) 1 tab(s) by mouth Daily at bedtime Pharmacy Information [facility]/pharmacy #[id number]: [address], [place] [phone] Please take this list to your next doctor s visit. Bring all medications you take, including over the counter medications, herbals and other supplements with you to your doctor s visit. Patients and families are reminded to discard old lists and to update any records with all medication providers or retail pharmacies. Additional Information VACCINATE! IT SAVES LIVES! Members of the community who have not yet received the COVID-19 vaccine and would like to receive it can visit one of [facility] vaccine clinics. There are many vaccine clinic locations within the [facility]. For locations and available times, please visit [email or web address] [email or web address] It is important to note that some COVID mobile vaccine clinics are held outdoors and may be canceled in rainy or stormy conditions. To learn more about pediatric vaccinations (ages 5-11), we invite you to visit the [facility] webpage. https://www.[email or web address].org/p ages/6969-Zlpet-Hccoxfjgqpr-Freq oyvwxq-Vobnd-Tzhxqmukw.html To learn more about the COVID-19 vaccine, we invite you to visit the CDC website for a list of frequently asked questions.https://www.cdc.gov/co ronavirus/2019-ncov/vaccines/faq .html [employer] Patient Portal Access Instructions: Stay connected with your healthcare team and access your personal medical information anytime with the [employer] Patient Portal. Please follow the directions below to create your [employer] account: 1.Access the email account you provided upon registration to the hospital/physician office.2.Look for an invitation email from [facility].3.Open the email and access the invitation link: Accept Invitation to [facility] [employer].4.Fill in the required orr to create your account. To access your account, visit [email or web address]. Click the blue button labeled Access Patient Portal and then log in with the username and password that you created in the steps above. You will be able to view your test results, lab results, a summary of your visits, upcoming appointments and more. There is also a convenient messaging option where you can send secure messages to your provider. In addition, you will have the ability to download any documents or summaries to your computer and/or send the information securely to a physician. Remember that your healthcare information is confidential, so carefully consider who you will allow to register on the [facility] Patient Portal for access to your information. You can also access the [facility] Patient Portal on the [facility] frida. Simply click on Patient Portal and then log into your account. If you would like to receive a full copy of your medical records, please contact the [facility] Medical Records Department by calling [phone], Monday through Monday between 8 a.m. and 4:30 p.m. HOW TO SAFELY DISPOSE OF PRESCRIPTION MEDICATIONS Please use one of the following methods to safely dispose of your unused medications. 1.Use a drug disposal kit: the drug disposal pouch allows you to safely discard your old and unused drugs. Ask your nurse to give you one when you are discharged.2.Visit a local take-back location: Many local pharmacies and police departments have programs that collect old and unwanted prescription drugs. Call your local pharmacy or go to http://[employer]/1E7Jw9k to find one close to you.3.Make use of household items: Use cat litter or old coffee grounds to dispose medications if other options are not available. Mix your drugs with these household products, seal them in an airtight container and throw it into the garbage. Call [facility]: [phone] to be sure your drugs can be disposed of in this way. Some medicines may require a different approach.4.Never flush your medications down the toilet. IF YOU HAVE BEEN PRESCRIBED AN OPIOID FOR PAIN If you have been prescribed an opioid (such as hydrocodone, oxycodone or morphine), it is critical to understand the possible side effects and risks of opioid pain medications. Even when taken as directed, opioids can have several side effects including: Tolerance, meaning you might need to take more of a medication for the same pain relief. Nausea, vomiting and/or constipation. Sleepiness, dizziness, dry mouth, confusion, depression or itching. Physical dependence, meaning you have withdrawal symptoms when a medication is stopped, can develop within a few days. KNOW YOUR RESPONSIBILITIES It is important to know exactly how much and how often to take the opioid pain medications you are prescribed. Never take opioids in higher amounts or more often than prescribed. Do not combine opioids with alcohol or other drugs that cause drowsiness, such as benzodiazepines, also known as benzos, including diazepam and alprazolam, muscle relaxants or sleep aids. Never sell or share prescription opioids. This is illegal. Store opioids in a secure place and out of reach of others (including children, family, friends and visitors). The last page of this document has been signed and retained as a CHART COPY. Signatures Patient Education Materials Medication Leaflets My discharge plan and instructions have been reviewed and explained to me and I,SOCORRO KELLEY understand my current condition and have read and understand these discharge instructions. I have received a written copy of the plan/instructions. If I have questions, I am aware that I should contact my doctor. Patient/Dealer Support Technician Signature: Date/Time: Relationship to Patient: Witness Name/Signature: Date/Time: [facility] 10-23-2024 Orthopaedic surgery Progress note Date of Service 10/23/2024 Subjective Reevaluated bedside this morning. He states he is doing well. He states pancake site care is going great and that his most proximal pin sites have stopped draining. He notes that some blisters are reforming around his ankle however denies increased pain. He denies pain to left lower extremity. He denies any new orthopedic complaints. He continues to state that he has not had a bowel movement however this is at his baseline and he is not concerned. He denies any nausea, vomiting, diarrhea, chest pain, lightheadedness. Objective Vitals and Measurements T: 37 C (Oral) TMIN: 36.5 C (Oral) TMAX: 37 C (Oral) HR: 78 RR: 16 BP: 116/76 SpO2: 93% Intake and Output 7AM Yesterday to 7AM Today Intake and Output (Last 24 hours) Intake Oral Intake 900.00 Output Urine Voided 3250.00 Stool Count 0.00 Total Summary Total Intake 900.00 Total Output 3250.00 Fluid Balance -2350.00 Physical Exam Right Lower Extremity - There is an external fixator in place to right lower extremity. Pin sites without any signs of loosening this is covered by an [place] wrap that is clean, dry, intact. Pin sites to tibia and calcaneus with serosanguineous drainage. Blisters with Xeroform overlying. Some reforming on medial and anterior aspect. - Motor: Hip flexion/extension, quadriceps, hamstrings, gastruc/soleus, EHL/FHL intact. Limited secondary to Ex-Fix. - Foot warm and perfused. - Sensation grossly intact L2-S2: obturator, femoral, LCN, DPN, SPN, sural, saphenous, M/LIBRARY SUPERVISOR - Calf soft and non-tender Left Lower Extremity - No pain to left lower extremity. Walking boot in place when patient is ambulating - Motor: Hip flexion/extension, quadriceps, hamstrings, gastruc/soleus, EHL/FHL intact. - DP and PT pulse 2+. Foot warm and perfused. BCR - Sensation grossly intact L2-S2: obturator, femoral, LCN, DPN, SPN, sural, saphenous, M/LIBRARY SUPERVISOR - Calf soft and non-tender Weight Dosing Weight: 142 kg (10/17/24) Dosing Weight: 146.9 kg (10/16/24) Medications Medications (34) Active Scheduled: (14) acetaminophen 325 mg Tablet 650 mg 2 tab(s), Oral, q6h albuterol 0.083% Soln UD (2.5mg/3 mL) 2.5 mg 3 mL, Inhalation, QIDRT allopurinol 100 mg tablet 100 mg 1 tab(s), Oral, qDay atorvastatin 10 mg tablet 10 mg 1 tab(s), Oral, qHS budesonide 0.25 mg/2 mL Susp UD 0.25 mg 2 mL, Inhalation, BIDRT dofetilide 250 mcg capsule 250 mcg 1 cap(s), Oral, BID duloxetine [address] Capsule 20 mg 1 cap(s), Oral, qDay insulin lispro 100 units/mL Soln (3 mL) Give 0-10 units/dose, Subcutaneous, TIDAC metoprolol succinate 100 mg ER tablet 100 mg 1 tab(s), Oral, BID Nexletol 180 mg oral tablet 180 mg, Oral, qDay omeprazole [address] capsule 40 mg 1 cap(s), Oral, BID rivaroxaban 20 mg tablet 20 mg 1 tab(s), Oral, qHS spironolactone 25 mg tablet 25 mg 1 tab(s), Oral, qDayM traZODONE 100 mg Tablet 100 mg 1 tab(s), Oral, qHS Continuous: (0) PRN: (20) acetaminophen 325 mg Tablet 650 mg 2 tab(s), Oral, q4h acetaminophen 650 mg Suppository 650 mg 1 supp, Rectal, q4h acetaminophen-OXYcodone 325 mg-5 mg Tablet 1 tab(s), Oral, q4h acetaminophen-OXYcodone 325 mg-5 mg Tablet 2 tab(s), Oral, q4h Al hydrox/Mg hydrox/simethicone 200-200-20 mg/5 mL Susp UD 30 mL, Oral, q2h dextrose 50% Solution Disp syringe 50 mL 25 gram(s) 50 mL, IV Push, AsDirected diphenhydramine 25 mg tablet 25 mg 1 tab(s), Oral, qHS docusate sodium 100 mg Capsule 100 mg 1 cap(s), Oral, BID hydromorphone 1 mg/mL (1mL) INJ 1 mg 1 mL, IV Push, q4h ibuprofen 400 mg tablet 800 mg 2 tab(s), Oral, q6h melatonin 3 mg tablet 3 mg 1 tab(s), Oral, qHS morphine 4 mg/mL 1mL INJ 4 mg 1 mL, IV Push, q3h ondansetron 2 mg/ 1 mL 2 mL INJ 4 mg 2 mL, IV Push, q4h ondansetron 2 mg/ 1 mL 2 mL INJ 4 mg 2 mL, IV Push, q4h ondansetron 4 mg tablet 4 mg 1 tab(s), Oral, q6h oxyCODONE 10 mg Tab (Immediate Release) 10 mg 1 tab(s), Oral, q4h oxycodone 5 mg tablet (immediate release) 5 mg 1 tab(s), Oral, q4h polyethylene glycol 3350 - UD packet 17 gram(s) 15 mL, Oral, qDay polyethylene glycol 3350 - UD packet 17 gram(s) 15 mL, Oral, qDay tiZANidine 2 mg tablet 2 mg 1 tab(s), Oral, q8h Lab Results No 36 Hour Lab Data EKG No qualifying data available. Assessment/Plan Closed displaced bimalleolar fracture of right ankle 54-year-old male postop day 6 s/p right ankle spanning external fixator - Perform pin site care daily starting today, replace Xeroform dressing daily, cleanse pin sites with 50% hydrogen peroxide-50% normal saline. - NWB RLE, WBAT LLE with walking boot - PT/OT as tolerated appreciate - Postop hemoglobin 13.4, stabilized on 10/20/2024 no new labs needed - DVT prophylaxis with Lovenox for 6 weeks postoperatively and bilateral SCDs - 24hr post op antibiotics completed - Encourage incentive spirometer - Pain control as ordered, multimodal, biased towards nonnarcotics when able - Hospitalist management of medical comorbidities, appreciate care - Follow up as outpatient with Dr. Quintana within 1 week -Social work for discharge planning, pending SNF placement - precert pending Patient stable for discharge from orthopedic standpoint. Still awaiting placement per case management Digitally Signed by TARA MISHRA DO on 10/23/2024 07:03 AM [facility] 10-23-2024 Orthopaedic surgery Progress note Date of Service 10/23/2024 Subjective Reevaluated bedside this morning. He states he is doing well. He states pancake site care is going great and that his most proximal pin sites have stopped draining. He notes that some blisters are reforming around his ankle however denies increased pain. He denies pain to left lower extremity. He denies any new orthopedic complaints. He continues to state that he has not had a bowel movement however this is at his baseline and he is not concerned. He denies any nausea, vomiting, diarrhea, chest pain, lightheadedness. Objective Vitals and Measurements T: 37 C (Oral) TMIN: 36.5 C (Oral) TMAX: 37 C (Oral) HR: 78 RR: 16 BP: 116/76 SpO2: 93% Intake and Output 7AM Yesterday to 7AM Today Intake and Output (Last 24 hours) Intake Oral Intake 900.00 Output Urine Voided 3250.00 Stool Count 0.00 Total Summary Total Intake 900.00 Total Output 3250.00 Fluid Balance -2350.00 Physical Exam Right Lower Extremity - There is an external fixator in place to right lower extremity. Pin sites without any signs of loosening this is covered by an [place] wrap that is clean, dry, intact. Pin sites to tibia and calcaneus with serosanguineous drainage. Blisters with Xeroform overlying. Some reforming on medial and anterior aspect. - Motor: Hip flexion/extension, quadriceps, hamstrings, gastruc/soleus, EHL/FHL intact. Limited secondary to Ex-Fix. - Foot warm and perfused. - Sensation grossly intact L2-S2: obturator, femoral, LCN, DPN, SPN, sural, saphenous, M/[employer]PER[employer] - Calf soft and non-tender Left Lower Extremity - No pain to left lower extremity. Walking boot in place when patient is ambulating - Motor: Hip flexion/extension, quadriceps, hamstrings, gastruc/soleus, EHL/FHL intact. - DP and PT pulse 2+. Foot warm and perfused. BCR - Sensation grossly intact L2-S2: obturator, femoral, LCN, DPN, SPN, sural, saphenous, M/[employer] SUPER[employer]OR - Calf soft and non-tender Weight Dosing Weight: 142 kg (10/17/24) Dosing Weight: 146.9 kg (10/16/24) Medications Medications (34) Active Scheduled: (14) acetaminophen 325 mg Tablet 650 mg 2 tab(s), Oral, q6h albuterol 0.083% Soln UD (2.5mg/3 mL) 2.5 mg 3 mL, Inhalation, QIDRT allopurinol 100 mg tablet 100 mg 1 tab(s), Oral, qDay atorvastatin 10 mg tablet 10 mg 1 tab(s), Oral, qHS budesonide 0.25 mg/2 mL Susp UD 0.25 mg 2 mL, Inhalation, BIDRT dofetilide 250 mcg capsule 250 mcg 1 cap(s), Oral, BID duloxetine [address] Capsule 20 mg 1 cap(s), Oral, qDay insulin lispro 100 units/mL Soln (3 mL) Give 0-10 units/dose, Subcutaneous, TIDAC metoprolol succinate 100 mg ER tablet 100 mg 1 tab(s), Oral, BID Nexletol 180 mg oral tablet 180 mg, Oral, qDay omeprazole [address] capsule 40 mg 1 cap(s), Oral, BID rivaroxaban 20 mg tablet 20 mg 1 tab(s), Oral, qHS spironolactone 25 mg tablet 25 mg 1 tab(s), Oral, qDayM traZODONE 100 mg Tablet 100 mg 1 tab(s), Oral, qHS Continuous: (0) PRN: (20) acetaminophen 325 mg Tablet 650 mg 2 tab(s), Oral, q4h acetaminophen 650 mg Suppository 650 mg 1 supp, Rectal, q4h acetaminophen-OXYcodone 325 mg-5 mg Tablet 1 tab(s), Oral, q4h acetaminophen-OXYcodone 325 mg-5 mg Tablet 2 tab(s), Oral, q4h Al hydrox/Mg hydrox/simethicone 200-200-20 mg/5 mL Susp UD 30 mL, Oral, q2h dextrose 50% Solution Disp syringe 50 mL 25 gram(s) 50 mL, IV Push, AsDirected diphenhydramine 25 mg tablet 25 mg 1 tab(s), Oral, qHS docusate sodium 100 mg Capsule 100 mg 1 cap(s), Oral, BID hydromorphone 1 mg/mL (1mL) INJ 1 mg 1 mL, IV Push, q4h ibuprofen 400 mg tablet 800 mg 2 tab(s), Oral, q6h melatonin 3 mg tablet 3 mg 1 tab(s), Oral, qHS morphine 4 mg/mL 1mL INJ 4 mg 1 mL, IV Push, q3h ondansetron 2 mg/ 1 mL 2 mL INJ 4 mg 2 mL, IV Push, q4h ondansetron 2 mg/ 1 mL 2 mL INJ 4 mg 2 mL, IV Push, q4h ondansetron 4 mg tablet 4 mg 1 tab(s), Oral, q6h oxyCODONE 10 mg Tab (Immediate Release) 10 mg 1 tab(s), Oral, q4h oxycodone 5 mg tablet (immediate release) 5 mg 1 tab(s), Oral, q4h polyethylene glycol 3350 - UD packet 17 gram(s) 15 mL, Oral, qDay polyethylene glycol 3350 - UD packet 17 gram(s) 15 mL, Oral, qDay tiZANidine 2 mg tablet 2 mg 1 tab(s), Oral, q8h Lab Results No 36 Hour Lab Data EKG No qualifying data available. Assessment/Plan Closed displaced bimalleolar fracture of right ankle 54-year-old male postop day 6 s/p right ankle spanning external fixator - Perform pin site care daily starting today, replace Xeroform dressing daily, cleanse pin sites with 50% hydrogen peroxide-50% normal saline. - NWB RLE, WBAT LLE with walking boot - PT/OT as tolerated appreciate - Postop hemoglobin 13.4, stabilized on 10/20/2024 no new labs needed - DVT prophylaxis with Lovenox for 6 weeks postoperatively and bilateral SCDs - 24hr post op antibiotics completed - Encourage incentive spirometer - Pain control as ordered, multimodal, biased towards nonnarcotics when able - Hospitalist management of medical comorbidities, appreciate care - Follow up as outpatient with Dr. Quintana within 1 week -Social work for discharge planning, pending SNF placement - precert pending Patient stable for discharge from orthopedic standpoint. Still awaiting placement per case management Digitally Signed by TARA MISHRA DO on 10/23/2024 07:03 AM [facility] 10-22-2024 Orthopaedic surgery Progress note Date of Service 10/22/2024 Subjective Bradycardia evaluated bedside this morning. He denies any significant pain to right lower extremity. He states he has been wearing a walking boot to the left foot when out of bed. Patient states he did very well over the weekend. He denies any issues with pin site care. He notes that he has had chronic constipation postoperatively which is consistent with his baseline. He denies any fevers, chills, nausea, vomiting, chest pain, lightheadedness, shortness of breath, dysuria, or further orthopedic complaints. Objective Vitals and Measurements T: 37 C (Oral) TMIN: 36.6 C (Oral) TMAX: 37 C (Oral) HR: 87 (Monitored) RR: 16 BP: 140/70 SpO2: 91% Intake and Output 7AM Yesterday to 7AM Today Intake and Output (Last 24 hours) Intake Oral Intake 600.00 Output Urine Voided 1100.00 Stool Count 0.00 Total Summary Total Intake 600.00 Total Output 1100.00 Fluid Balance -500.00 Physical Exam Right Lower Extremity - There is an external fixator in place to right lower extremity. Pin sites without any signs of loosening this is covered by an [place] wrap that is clean, dry, intact. Pin sites to tibia and calcaneus with serosanguineous drainage. Blisters with Xeroform overlying. Some reforming on medial aspect. - Motor: Hip flexion/extension, quadriceps, hamstrings, gastruc/soleus, EHL/FHL intact. Limited secondary to Ex-Fix. - Foot warm and perfused. - Sensation grossly intact L2-S2: obturator, femoral, LCN, DPN, SPN, sural, saphenous, M/[employer] - Calf soft and non-tender Left Lower Extremity - No pain to left lower extremity. Walking boot in place when patient is ambulating - Motor: Hip flexion/extension, quadriceps, hamstrings, gastruc/soleus, EHL/FHL intact. - DP and PT pulse 2+. Foot warm and perfused. BCR - Sensation grossly intact L2-S2: obturator, femoral, LCN, DPN, SPN, sural, saphenous, M/[employer]PER[employer]OR - Calf soft and non-tender Weight Dosing Weight: 142 kg (10/17/24) Dosing Weight: 146.9 kg (10/16/24) Medications Medications (34) Active Scheduled: (14) acetaminophen 325 mg Tablet 650 mg 2 tab(s), Oral, q6h albuterol 0.083% Soln UD (2.5mg/3 mL) 2.5 mg 3 mL, Inhalation, QIDRT allopurinol 100 mg tablet 100 mg 1 tab(s), Oral, qDay atorvastatin 10 mg tablet 10 mg 1 tab(s), Oral, qHS budesonide 0.25 mg/2 mL Susp UD 0.25 mg 2 mL, Inhalation, BIDRT dofetilide 250 mcg capsule 250 mcg 1 cap(s), Oral, BID duloxetine [address] Capsule 20 mg 1 cap(s), Oral, qDay insulin lispro 100 units/mL Soln (3 mL) Give 0-10 units/dose, Subcutaneous, TIDAC metoprolol succinate 100 mg ER tablet 100 mg 1 tab(s), Oral, BID Nexletol 180 mg oral tablet 180 mg, Oral, qDay omeprazole [address] capsule 40 mg 1 cap(s), Oral, BID rivaroxaban 20 mg tablet 20 mg 1 tab(s), Oral, qHS spironolactone 25 mg tablet 25 mg 1 tab(s), Oral, qDayM traZODONE 100 mg Tablet 100 mg 1 tab(s), Oral, qHS Continuous: (0) PRN: (20) acetaminophen 325 mg Tablet 650 mg 2 tab(s), Oral, q4h acetaminophen 650 mg Suppository 650 mg 1 supp, Rectal, q4h acetaminophen-OXYcodone 325 mg-5 mg Tablet 1 tab(s), Oral, q4h acetaminophen-OXYcodone 325 mg-5 mg Tablet 2 tab(s), Oral, q4h Al hydrox/Mg hydrox/simethicone 200-200-20 mg/5 mL Susp UD 30 mL, Oral, q2h dextrose 50% Solution Disp syringe 50 mL 25 gram(s) 50 mL, IV Push, AsDirected diphenhydramine 25 mg tablet 25 mg 1 tab(s), Oral, qHS docusate sodium 100 mg Capsule 100 mg 1 cap(s), Oral, BID hydromorphone 1 mg/mL (1mL) INJ 1 mg 1 mL, IV Push, q4h ibuprofen 400 mg tablet 800 mg 2 tab(s), Oral, q6h melatonin 3 mg tablet 3 mg 1 tab(s), Oral, qHS morphine 4 mg/mL 1mL INJ 4 mg 1 mL, IV Push, q3h ondansetron 2 mg/ 1 mL 2 mL INJ 4 mg 2 mL, IV Push, q4h ondansetron 2 mg/ 1 mL 2 mL INJ 4 mg 2 mL, IV Push, q4h ondansetron 4 mg tablet 4 mg 1 tab(s), Oral, q6h oxyCODONE 10 mg Tab (Immediate Release) 10 mg 1 tab(s), Oral, q4h oxycodone 5 mg tablet (immediate release) 5 mg 1 tab(s), Oral, q4h polyethylene glycol 3350 - UD packet 17 gram(s) 15 mL, Oral, qDay polyethylene glycol 3350 - UD packet 17 gram(s) 15 mL, Oral, qDay tiZANidine 2 mg tablet 2 mg 1 tab(s), Oral, q8h Lab Results 10/20 22:43 WBC: 4.8 Hgb: 13.4 Hct: 41.3 Platelet: 175 Neutrophil %: 65.1 Glucose Level: 116 H Sodium Level: 138 Potassium Level: 3.5 BUN: 8.0 Creatinine Lvl (s): 0.74 EKG No qualifying data available. Assessment/Plan Closed displaced bimalleolar fracture of right ankle 54-year-old male postop day 5 s/p right ankle spanning external fixator - Perform pin site care daily starting today, replace Xeroform dressing daily, cleanse pin sites with 50% hydrogen peroxide-50% normal saline. - NWB RLE, WBAT LLE with walking boot - PT/OT as tolerated appreciate - Postop hemoglobin 13.4, stabilized on 10/20/2024 no new labs needed - DVT prophylaxis with Lovenox for 6 weeks postoperatively and bilateral SCDs - 24hr post op antibiotics completed - Encourage incentive spirometer - Pain control as ordered, multimodal, biased towards nonnarcotics when able - Hospitalist management of medical comorbidities, appreciate care - Follow up as outpatient with Dr. Quintana within 1 week -Social work for discharge planning, pending SNF placement Patient stable for discharge from orthopedic standpoint. Still awaiting placement per case management Digitally Signed by TARA MISHRA DO on 10/22/2024 05:51 AM [facility] 10-22-2024 Orthopaedic surgery Progress note Date of Service 10/22/2024 Subjective Bradycardia evaluated bedside this morning. He denies any significant pain to right lower extremity. He states he has been wearing a walking boot to the left foot when out of bed. Patient states he did very well over the weekend. He denies any issues with pin site care. He notes that he has had chronic constipation postoperatively which is consistent with his baseline. He denies any fevers, chills, nausea, vomiting, chest pain, lightheadedness, shortness of breath, dysuria, or further orthopedic complaints. Objective Vitals and Measurements T: 37 C (Oral) TMIN: 36.6 C (Oral) TMAX: 37 C (Oral) HR: 87 (Monitored) RR: 16 BP: 140/70 SpO2: 91% Intake and Output 7AM Yesterday to 7AM Today Intake and Output (Last 24 hours) Intake Oral Intake 600.00 Output Urine Voided 1100.00 Stool Count 0.00 Total Summary Total Intake 600.00 Total Output 1100.00 Fluid Balance -500.00 Physical Exam Right Lower Extremity - There is an external fixator in place to right lower extremity. Pin sites without any signs of loosening this is covered by an [place] wrap that is clean, dry, intact. Pin sites to tibia and calcaneus with serosanguineous drainage. Blisters with Xeroform overlying. Some reforming on medial aspect. - Motor: Hip flexion/extension, quadriceps, hamstrings, gastruc/soleus, EHL/FHL intact. Limited secondary to Ex-Fix. - Foot warm and perfused. - Sensation grossly intact L2-S2: obturator, femoral, LCN, DPN, SPN, sural, saphenous, M/[employer] SUPERVISOR - Calf soft and non-tender Left Lower Extremity - No pain to left lower extremity. Walking boot in place when patient is ambulating - Motor: Hip flexion/extension, quadriceps, hamstrings, gastruc/soleus, EHL/FHL intact. - DP and PT pulse 2+. Foot warm and perfused. BCR - Sensation grossly intact L2-S2: obturator, femoral, LCN, DPN, SPN, sural, saphenous, M/[employer] SUPERVISOR - Calf soft and non-tender Weight Dosing Weight: 142 kg (10/17/24) Dosing Weight: 146.9 kg (10/16/24) Medications Medications (34) Active Scheduled: (14) acetaminophen 325 mg Tablet 650 mg 2 tab(s), Oral, q6h albuterol 0.083% Soln UD (2.5mg/3 mL) 2.5 mg 3 mL, Inhalation, QIDRT allopurinol 100 mg tablet 100 mg 1 tab(s), Oral, qDay atorvastatin 10 mg tablet 10 mg 1 tab(s), Oral, qHS budesonide 0.25 mg/2 mL Susp UD 0.25 mg 2 mL, Inhalation, BIDRT dofetilide 250 mcg capsule 250 mcg 1 cap(s), Oral, BID duloxetine [address] Capsule 20 mg 1 cap(s), Oral, qDay insulin lispro 100 units/mL Soln (3 mL) Give 0-10 units/dose, Subcutaneous, TIDAC metoprolol succinate 100 mg ER tablet 100 mg 1 tab(s), Oral, BID Nexletol 180 mg oral tablet 180 mg, Oral, qDay omeprazole [address] capsule 40 mg 1 cap(s), Oral, BID rivaroxaban 20 mg tablet 20 mg 1 tab(s), Oral, qHS spironolactone 25 mg tablet 25 mg 1 tab(s), Oral, qDayM traZODONE 100 mg Tablet 100 mg 1 tab(s), Oral, qHS Continuous: (0) PRN: (20) acetaminophen 325 mg Tablet 650 mg 2 tab(s), Oral, q4h acetaminophen 650 mg Suppository 650 mg 1 supp, Rectal, q4h acetaminophen-OXYcodone 325 mg-5 mg Tablet 1 tab(s), Oral, q4h acetaminophen-OXYcodone 325 mg-5 mg Tablet 2 tab(s), Oral, q4h Al hydrox/Mg hydrox/simethicone 200-200-20 mg/5 mL Susp UD 30 mL, Oral, q2h dextrose 50% Solution Disp syringe 50 mL 25 gram(s) 50 mL, IV Push, AsDirected diphenhydramine 25 mg tablet 25 mg 1 tab(s), Oral, qHS docusate sodium 100 mg Capsule 100 mg 1 cap(s), Oral, BID hydromorphone 1 mg/mL (1mL) INJ 1 mg 1 mL, IV Push, q4h ibuprofen 400 mg tablet 800 mg 2 tab(s), Oral, q6h melatonin 3 mg tablet 3 mg 1 tab(s), Oral, qHS morphine 4 mg/mL 1mL INJ 4 mg 1 mL, IV Push, q3h ondansetron 2 mg/ 1 mL 2 mL INJ 4 mg 2 mL, IV Push, q4h ondansetron 2 mg/ 1 mL 2 mL INJ 4 mg 2 mL, IV Push, q4h ondansetron 4 mg tablet 4 mg 1 tab(s), Oral, q6h oxyCODONE 10 mg Tab (Immediate Release) 10 mg 1 tab(s), Oral, q4h oxycodone 5 mg tablet (immediate release) 5 mg 1 tab(s), Oral, q4h polyethylene glycol 3350 - UD packet 17 gram(s) 15 mL, Oral, qDay polyethylene glycol 3350 - UD packet 17 gram(s) 15 mL, Oral, qDay tiZANidine 2 mg tablet 2 mg 1 tab(s), Oral, q8h Lab Results 10/20 22:43 WBC: 4.8 Hgb: 13.4 Hct: 41.3 Platelet: 175 Neutrophil %: 65.1 Glucose Level: 116 H Sodium Level: 138 Potassium Level: 3.5 BUN: 8.0 Creatinine Lvl (s): 0.74 EKG No qualifying data available. Assessment/Plan Closed displaced bimalleolar fracture of right ankle 54-year-old male postop day 5 s/p right ankle spanning external fixator - Perform pin site care daily starting today, replace Xeroform dressing daily, cleanse pin sites with 50% hydrogen peroxide-50% normal saline. - NWB RLE, WBAT LLE with walking boot - PT/OT as tolerated appreciate - Postop hemoglobin 13.4, stabilized on 10/20/2024 no new labs needed - DVT prophylaxis with Lovenox for 6 weeks postoperatively and bilateral SCDs - 24hr post op antibiotics completed - Encourage incentive spirometer - Pain control as ordered, multimodal, biased towards nonnarcotics when able - Hospitalist management of medical comorbidities, appreciate care - Follow up as outpatient with Dr. Quintana within 1 week -Social work for discharge planning, pending SNF placement Patient stable for discharge from orthopedic standpoint. Still awaiting placement per case management Digitally Signed by TARA MISHRA DO on 10/22/2024 05:51 AM [facility] 10-21-2024 Orthopaedic surgery Progress note Date of Service 10/21/2024 Chief Complaint Postop day 4 right ankle spanning external fixator Subjective Patient was examined at bedside this morning and was resting comfortably. States that the pain in his ankle is getting better at this time he feels like the swelling is also decreasing. States that he is slightly concerned about the drainage from the proximalmost pin site, all questions were answered. Denies any numbness or tingling. Objective Vitals and Measurements T: 36.7 C (Oral) HR: 68 RR: 18 BP: 136/77 SpO2: 92% Intake and Output 7AM Yesterday to 7AM Today Intake and Output (Last 24 hours) Intake Oral Intake 120.00 Output Urine Voided 2525.00 Stool Count 0.00 Urine Count 1.00 Total Summary Total Intake 120.00 Total Output 2525.00 Fluid Balance -2405.00 Physical Exam Right lower extremity - Pins in place without any signs of loosening. Moderate amount of drainage from the tibial and calcaneal pin site. Serosanguineous drainage -Skin pink and well perfused -Sensation intact to light touch SP, DP, PT, saphenous, and sural nerves -Gross motor function intact to dorsi/plantarflexion of ankle and toes -DP, TP pulses palpable -Compartments are soft and compressible -No calf tenderness Weight Dosing Weight: 142 kg (10/17/24) Dosing Weight: 146.9 kg (10/16/24) Medications Medications (35) Active Scheduled: (15) acetaminophen 325 mg Tablet 650 mg 2 tab(s), Oral, q6h albuterol 0.083% Soln UD (2.5mg/3 mL) 2.5 mg 3 mL, Inhalation, QIDRT allopurinol 100 mg tablet 100 mg 1 tab(s), Oral, qDay atorvastatin 10 mg tablet 10 mg 1 tab(s), Oral, qHS budesonide 0.25 mg/2 mL Susp UD 0.25 mg 2 mL, Inhalation, BIDRT dofetilide 250 mcg capsule 250 mcg 1 cap(s), Oral, BID duloxetine [address] Capsule 20 mg 1 cap(s), Oral, qDay insulin lispro 100 units/mL Soln (3 mL) Give 0-10 units/dose, Subcutaneous, TIDAC metoprolol succinate 100 mg ER tablet 100 mg 1 tab(s), Oral, BID mupirocin 2% Ointment 22 Gram(s) tube 1 frida, Nostril, each, BID Nexletol 180 mg oral tablet 180 mg, Oral, qDay omeprazole [address] capsule 40 mg 1 cap(s), Oral, BID rivaroxaban 20 mg tablet 20 mg 1 tab(s), Oral, qHS spironolactone 25 mg tablet 25 mg 1 tab(s), Oral, qDayM traZODONE 100 mg Tablet 100 mg 1 tab(s), Oral, qHS Continuous: (0) PRN: (20) acetaminophen 325 mg Tablet 650 mg 2 tab(s), Oral, q4h acetaminophen 650 mg Suppository 650 mg 1 supp, Rectal, q4h acetaminophen-OXYcodone 325 mg-5 mg Tablet 1 tab(s), Oral, q4h acetaminophen-OXYcodone 325 mg-5 mg Tablet 2 tab(s), Oral, q4h Al hydrox/Mg hydrox/simethicone 200-200-20 mg/5 mL Susp UD 30 mL, Oral, q2h dextrose 50% Solution Disp syringe 50 mL 25 gram(s) 50 mL, IV Push, AsDirected diphenhydramine 25 mg tablet 25 mg 1 tab(s), Oral, qHS docusate sodium 100 mg Capsule 100 mg 1 cap(s), Oral, BID hydromorphone 1 mg/mL (1mL) INJ 1 mg 1 mL, IV Push, q4h ibuprofen 400 mg tablet 800 mg 2 tab(s), Oral, q6h melatonin 3 mg tablet 3 mg 1 tab(s), Oral, qHS morphine 4 mg/mL 1mL INJ 4 mg 1 mL, IV Push, q3h ondansetron 2 mg/ 1 mL 2 mL INJ 4 mg 2 mL, IV Push, q4h ondansetron 2 mg/ 1 mL 2 mL INJ 4 mg 2 mL, IV Push, q4h ondansetron 4 mg tablet 4 mg 1 tab(s), Oral, q6h oxyCODONE 10 mg Tab (Immediate Release) 10 mg 1 tab(s), Oral, q4h oxycodone 5 mg tablet (immediate release) 5 mg 1 tab(s), Oral, q4h polyethylene glycol 3350 - UD packet 17 gram(s) 15 mL, Oral, qDay polyethylene glycol 3350 - UD packet 17 gram(s) 15 mL, Oral, qDay tiZANidine 2 mg tablet 2 mg 1 tab(s), Oral, q8h Lab Results 10/20 22:43 WBC: 4.8 Hgb: 13.4 Hct: 41.3 Platelet: 175 Neutrophil %: 65.1 Glucose Level: 116 H Sodium Level: 138 Potassium Level: 3.5 BUN: 8.0 Creatinine Lvl (s): 0.74 10/19 22:11 WBC: 5.4 Hgb: 13.0 Hct: 40.5 Platelet: 171 Neutrophil %: 70.0 Glucose Level: 181 H Sodium Level: 137 Potassium Level: 3.5 BUN: 8.0 Creatinine Lvl (s): 0.72 EKG No qualifying data available. Assessment/Plan Closed displaced bimalleolar fracture of right ankle 54-year-old male postop day 4 s/p right ankle spanning external fixator - Perform pin site care daily starting today, replace Xeroform dressing daily, cleanse pin sites with 50% hydrogen peroxide-50% normal saline. - NWB RLE, WBAT LLE with walking boot - PT/OT as tolerated appreciate - Postop hemoglobin 13.4 - DVT prophylaxis with Lovenox starting today and bilateral SCDs - 24hr post op antibiotics completed - Encourage incentive spirometer - Pain control as ordered, multimodal, biased towards nonnarcotics when able - Hospitalist management of medical comorbidities, appreciate care - Follow up as outpatient with Dr. Quintana within 1 week -Social work for discharge planning Patient stable for discharge from orthopedic standpoint. Still awaiting placement per case management Digitally Signed by SANDRA GARCIA DO on 10/21/2024 10:00 AM [facility] 10-21-2024 Orthopaedic surgery Progress note Date of Service 10/21/2024 Chief Complaint Postop day 4 right ankle spanning external fixator Subjective Patient was examined at bedside this morning and was resting comfortably. States that the pain in his ankle is getting better at this time he feels like the swelling is also decreasing. States that he is slightly concerned about the drainage from the proximalmost pin site, all questions were answered. Denies any numbness or tingling. Objective Vitals and Measurements T: 36.7 C (Oral) HR: 68 RR: 18 BP: 136/77 SpO2: 92% Intake and Output 7AM Yesterday to 7AM Today Intake and Output (Last 24 hours) Intake Oral Intake 120.00 Output Urine Voided 2525.00 Stool Count 0.00 Urine Count 1.00 Total Summary Total Intake 120.00 Total Output 2525.00 Fluid Balance -2405.00 Physical Exam Right lower extremity - Pins in place without any signs of loosening. Moderate amount of drainage from the tibial and calcaneal pin site. Serosanguineous drainage -Skin pink and well perfused -Sensation intact to light touch SP, DP, PT, saphenous, and sural nerves -Gross motor function intact to dorsi/plantarflexion of ankle and toes -DP, TP pulses palpable -Compartments are soft and compressible -No calf tenderness Weight Dosing Weight: 142 kg (10/17/24) Dosing Weight: 146.9 kg (10/16/24) Medications Medications (35) Active Scheduled: (15) acetaminophen 325 mg Tablet 650 mg 2 tab(s), Oral, q6h albuterol 0.083% Soln UD (2.5mg/3 mL) 2.5 mg 3 mL, Inhalation, QIDRT allopurinol 100 mg tablet 100 mg 1 tab(s), Oral, qDay atorvastatin 10 mg tablet 10 mg 1 tab(s), Oral, qHS budesonide 0.25 mg/2 mL Susp UD 0.25 mg 2 mL, Inhalation, BIDRT dofetilide 250 mcg capsule 250 mcg 1 cap(s), Oral, BID duloxetine [address] Capsule 20 mg 1 cap(s), Oral, qDay insulin lispro 100 units/mL Soln (3 mL) Give 0-10 units/dose, Subcutaneous, TIDAC metoprolol succinate 100 mg ER tablet 100 mg 1 tab(s), Oral, BID mupirocin 2% Ointment 22 Gram(s) tube 1 frida, Nostril, each, BID Nexletol 180 mg oral tablet 180 mg, Oral, qDay omeprazole [address] capsule 40 mg 1 cap(s), Oral, BID rivaroxaban 20 mg tablet 20 mg 1 tab(s), Oral, qHS spironolactone 25 mg tablet 25 mg 1 tab(s), Oral, qDayM traZODONE 100 mg Tablet 100 mg 1 tab(s), Oral, qHS Continuous: (0) PRN: (20) acetaminophen 325 mg Tablet 650 mg 2 tab(s), Oral, q4h acetaminophen 650 mg Suppository 650 mg 1 supp, Rectal, q4h acetaminophen-OXYcodone 325 mg-5 mg Tablet 1 tab(s), Oral, q4h acetaminophen-OXYcodone 325 mg-5 mg Tablet 2 tab(s), Oral, q4h Al hydrox/Mg hydrox/simethicone 200-200-20 mg/5 mL Susp UD 30 mL, Oral, q2h dextrose 50% Solution Disp syringe 50 mL 25 gram(s) 50 mL, IV Push, AsDirected diphenhydramine 25 mg tablet 25 mg 1 tab(s), Oral, qHS docusate sodium 100 mg Capsule 100 mg 1 cap(s), Oral, BID hydromorphone 1 mg/mL (1mL) INJ 1 mg 1 mL, IV Push, q4h ibuprofen 400 mg tablet 800 mg 2 tab(s), Oral, q6h melatonin 3 mg tablet 3 mg 1 tab(s), Oral, qHS morphine 4 mg/mL 1mL INJ 4 mg 1 mL, IV Push, q3h ondansetron 2 mg/ 1 mL 2 mL INJ 4 mg 2 mL, IV Push, q4h ondansetron 2 mg/ 1 mL 2 mL INJ 4 mg 2 mL, IV Push, q4h ondansetron 4 mg tablet 4 mg 1 tab(s), Oral, q6h oxyCODONE 10 mg Tab (Immediate Release) 10 mg 1 tab(s), Oral, q4h oxycodone 5 mg tablet (immediate release) 5 mg 1 tab(s), Oral, q4h polyethylene glycol 3350 - UD packet 17 gram(s) 15 mL, Oral, qDay polyethylene glycol 3350 - UD packet 17 gram(s) 15 mL, Oral, qDay tiZANidine 2 mg tablet 2 mg 1 tab(s), Oral, q8h Lab Results 10/20 22:43 WBC: 4.8 Hgb: 13.4 Hct: 41.3 Platelet: 175 Neutrophil %: 65.1 Glucose Level: 116 H Sodium Level: 138 Potassium Level: 3.5 BUN: 8.0 Creatinine Lvl (s): 0.74 10/19 22:11 WBC: 5.4 Hgb: 13.0 Hct: 40.5 Platelet: 171 Neutrophil %: 70.0 Glucose Level: 181 H Sodium Level: 137 Potassium Level: 3.5 BUN: 8.0 Creatinine Lvl (s): 0.72 EKG No qualifying data available. Assessment/Plan Closed displaced bimalleolar fracture of right ankle 54-year-old male postop day 4 s/p right ankle spanning external fixator - Perform pin site care daily starting today, replace Xeroform dressing daily, cleanse pin sites with 50% hydrogen peroxide-50% normal saline. - NWB RLE, WBAT LLE with walking boot - PT/OT as tolerated appreciate - Postop hemoglobin 13.4 - DVT prophylaxis with Lovenox starting today and bilateral SCDs - 24hr post op antibiotics completed - Encourage incentive spirometer - Pain control as ordered, multimodal, biased towards nonnarcotics when able - Hospitalist management of medical comorbidities, appreciate care - Follow up as outpatient with Dr. Quintana within 1 week -Social work for discharge planning Patient stable for discharge from orthopedic standpoint. Still awaiting placement per case management Digitally Signed by SANDRA GARCIA DO on 10/21/2024 10:00 AM [facility] 10-18-2024 Pastoral care Progress note Pastoral Care Note Entered On: 10/18/2024 16:52 EDT Performed On: 10/18/2024 14:50 EDT by Sanjay Lucas Pastoral Care Type of Pastoral Visit : Initial visit Spiritual Care Visit Initiated by : Consult/Referral Spiritual Care Reason for Visit : General Pastoral Care Referral From : Patient, Nurse Spiritual Assessment : Coping well with illness, Grateful/Thankful Spiritual Care Emotional Assessment : Accepting of Situation, Thoughtful/Reflective Spiritual Care Intervention : Active listening, Words of Encouragement, Validation of Feelings, Facilitate Life Review, Supportive presence, Conversation, Left calling card Spiritual Outcomes : Spiritual Resources Stirred Spiritual Plan of Care : Visit as Requested Pastoral Care Comments : Talked to the patient and offered to be part of his care team. He talked about his accident and the plans for future surgery. We explored how he is handling it all. I offered to come back for listening ear or whatever he might need from Spiritual Care. He was grateful. Left my card. Pastoral Care Visit Length : 15 minute(s) Sanjay Lucas - 10/18/2024 16:50 EDT Digitally Signed by Sanjay Lucas on 10/18/2024 04:50 PM [facility] 10-18-2024 Note PIN care completed by bedside RN. Ortho approved protocol orders for care daily. Digitally Signed by SHAHEEN Lou on 10/18/2024 01:37 PM [facility] 10-18-2024 Note Date of Service 10/18/2024 Chief Complaint Medical management Subjective Patient evaluated the bedside, sitting up in the chair working with physical therapy. Pain is well-controlled. No events overnight. Hemodynamically stable. Objective Vitals and Measurements T: 36.5 C (Oral) TMIN: 36.5 C (Oral) TMAX: 36.6 C (Oral) HR: 72 RR: 16 BP: 114/80 SpO2: 98% Intake and Output 7AM Yesterday to 7AM Today Intake and Output (Last 24 hours) Intake Oral Intake 480.00 Administration Information 800.00 Output Urine Voided 3000.00 Stool Count 0.00 Total Summary Total Intake 1280.00 Total Output 3000.00 Fluid Balance -1720.00 Physical Exam Vitals Signs(Last 24 hrs)__ Last Charted Minimum Maximum Temp 36.5(OCTOBER 18 08:17) 36.5(OCTOBER 18 08:17) 36.5(OCTOBER 17 16:54) Heart Rate 78(OCTOBER 18 09:41) 62(OCTOBER 18 08:17) 78(OCTOBER 18 09:41) SBP 114(OCTOBER 18 08:17) 114(OCTOBER 18 08:17) H 211(OCTOBER 17 14:15) DBP 80(OCTOBER 18 08:17) 66(OCTOBER 17 14:15) 80(OCTOBER 18 08:17) Physical Exam General: No acute distress. Alert and Appropriate. Lungs: Bilaterally diminished breath sounds with no crepitation or wheeze. Unlabored Cardiovascular: Heart is regular rhythm, S1S2, No extra-audible heart tones Abdomen: Abdomen is soft, nontender. Bowel sounds positive all four quadrants. Extremities: No clubbing, cyanosis or edema. Peripheral pulses palpable. No calf tenderness. Adequate peripheral circulation. External fixator noted to right lower extremity. Neurological: The patient is awake, oriented to time, people and place. Following simple commands, moving all extremities. Weight Dosing Weight: 142 kg (10/17/24) Dosing Weight: 146.9 kg (10/16/24) Medications Medications (35) Active Scheduled: (15) acetaminophen 325 mg Tablet 650 mg 2 tab(s), Oral, q6h albuterol 0.083% Soln UD (2.5mg/3 mL) 2.5 mg 3 mL, Inhalation, QIDRT allopurinol 100 mg tablet 100 mg 1 tab(s), Oral, qDay atorvastatin 10 mg tablet 10 mg 1 tab(s), Oral, qHS budesonide 0.25 mg/2 mL Susp UD 0.25 mg 2 mL, Inhalation, BIDRT dofetilide 250 mcg capsule 250 mcg 1 cap(s), Oral, BID duloxetine [address] Capsule 20 mg 1 cap(s), Oral, qDay insulin lispro 100 units/mL Soln (3 mL) Give 0-10 units/dose, Subcutaneous, TIDAC metoprolol succinate 100 mg ER tablet 100 mg 1 tab(s), Oral, BID mupirocin 2% Ointment 22 Gram(s) tube 1 frida, Nostril, each, BID Nexletol 180 mg oral tablet 180 mg, Oral, qDay omeprazole [address] capsule 40 mg 1 cap(s), Oral, BID rivaroxaban 20 mg tablet 20 mg 1 tab(s), Oral, qHS spironolactone 25 mg tablet 25 mg 1 tab(s), Oral, qDayM traZODONE 100 mg Tablet 100 mg 1 tab(s), Oral, qHS Continuous: (0) PRN: (20) acetaminophen 325 mg Tablet 650 mg 2 tab(s), Oral, q4h acetaminophen 650 mg Suppository 650 mg 1 supp, Rectal, q4h acetaminophen-OXYcodone 325 mg-5 mg Tablet 1 tab(s), Oral, q4h acetaminophen-OXYcodone 325 mg-5 mg Tablet 2 tab(s), Oral, q4h Al hydrox/Mg hydrox/simethicone 200-200-20 mg/5 mL Susp UD 30 mL, Oral, q2h dextrose 50% Solution Disp syringe 50 mL 25 gram(s) 50 mL, IV Push, AsDirected diphenhydramine 25 mg tablet 25 mg 1 tab(s), Oral, qHS docusate sodium 100 mg Capsule 100 mg 1 cap(s), Oral, BID hydromorphone 1 mg/mL (1mL) INJ 1 mg 1 mL, IV Push, q4h ibuprofen 400 mg tablet 800 mg 2 tab(s), Oral, q6h melatonin 3 mg tablet 3 mg 1 tab(s), Oral, qHS morphine 4 mg/mL 1mL INJ 4 mg 1 mL, IV Push, q3h ondansetron 2 mg/ 1 mL 2 mL INJ 4 mg 2 mL, IV Push, q4h ondansetron 2 mg/ 1 mL 2 mL INJ 4 mg 2 mL, IV Push, q4h ondansetron 4 mg tablet 4 mg 1 tab(s), Oral, q6h oxyCODONE 10 mg Tab (Immediate Release) 10 mg 1 tab(s), Oral, q4h oxycodone 5 mg tablet (immediate release) 5 mg 1 tab(s), Oral, q4h polyethylene glycol 3350 - UD packet 17 gram(s) 15 mL, Oral, qDay polyethylene glycol 3350 - UD packet 17 gram(s) 15 mL, Oral, qDay tiZANidine 2 mg tablet 2 mg 1 tab(s), Oral, q8h Lab Results 10/18 06:01 WBC: 4.6 Hgb: 13.6 Hct: 41.4 Platelet: 127 L Neutrophil %: 70.5 Glucose Level: 110 Sodium Level: 139 Potassium Level: 3.6 BUN: <5.0 L Creatinine Lvl (s): 0.63 10/17 23:15 WBC: 5.4 Hgb: 13.2 Hct: 40.3 Platelet: 132 L Neutrophil %: 69.5 Glucose Level: 120 H Sodium Level: 139 Potassium Level: 3.3 L BUN: 5.0 L Creatinine Lvl (s): 0.65 10/17 02:46 Protime: 13.7 PT International Ratio: 1.2 EKG EKG - Completed -- 10/16/24 21:21:00 EDT, Complete by Nursing Assessment/Plan Close displaced bimalleolar fracture right ankle Mechanical fall Type 2 diabetes mellitus Hypertension COPD HFpEF Anxiety Atrial fibrillation on Xarelto Gout Hyperlipidemia Postop day 1, right ankle spanning external fixator. Management per primary team. Nonweightbearing to right lower extremity. Xarelto resumed today. Hemoglobin stable. Continue sliding scale insulin while inpatient, blood sugars have been well-controlled. Resume home Trulicity at discharge Continue all other home medications as before PT OT evaluated patient, recommending home physical therapy. However, patient is hoping to go to facility for rehab. Will sign off. Thank you for allowing us for the care of your patient. Call with questions. Plan of care discussed with patient. All questions answered. Patient verbalized understanding is agreeable to plan of care. Discussed with my collaborating physician Dr. Garces. This dictation was performed using voice recognition software and may include grammatical and/or spelling errors. Time Spent 33 min Digitally Signed by GROVER HOFFMAN on 10/18/2024 01:11 PM [facility] 10-17-2024 Note Exam Date Time Procedure Performing Provider Status 10/17/24 1:14 PM XR Fluoro 1-2 Hrs Tech Time KAILEY WAHL DO; Auth (Verified) [id number] ORIGINAL EXAMINATION: TAD MD - > 1 HR TECHNIQUE: Total fluoro time is 43.2 seconds. Total exposure is 2.0531 mGy. COMPARISON: CT ankle 10/17/2024, x-ray ankle 10/16/2024. HISTORY: ORDERING SYSTEM PROVIDED HISTORY: Reason for Exam: RIGHT ANKLE FX FINDINGS: Intraoperative fluoroscopic images from external surgical fixation of a distal fibular fracture. IMPRESSION: Intraoperative fluoroscopic images. Please refer to the proof operator's report for further information. I have personally reviewed the images of this examination and agree with the resident's findings and interpretation. Interpreted by: Corey Wahl Preliminary Report By: Nadya Hudson Electronically signed By Corey Wahl Dictated Date: 10/17/2024 1:42:02 PM Prelim Date: 10/17/2024 2:15:08 PM Sign Date: 10/17/2024 2:15:08 PM Ordering Provider: NANI QUINTANA [id number] Note Date of Service 10/17/2024 Chief Complaint Medical management Subjective This 54-year-old white male with a past medical history of type 2 diabetes mellitus, hypertension, COPD, HFpEF, anxiety, atrial fibrillation on Xarelto and Tikosyn presented to [facility] aftermechanical fall and subsequent ankle pain. Patient was found to have closed displaced bimalleolar fracture of the right ankle. He was admitted under orthopedic surgery services. Hospitalist consultedfor surgical clearance and medical management. On 10/17/2024 patient underwent right ankle repair with external fixator. Patient evaluated the bedside postoperatively, pain is well-controlled. External fixator noted to right ankle. Surgical dressing intact. He is alert and oriented x 4. Denies chest pain or shortness of breath. Objective Vitals and Measurements T: 36.6 C (Oral) TMIN: 36.4 C (Oral) TMAX: 37.03 C HR: 80 (Apical) RR: 16 BP: 105/56 SpO2: 92% HT: 177.8 cm WT: 142 kg BMI: 44.92 Intake and Output 7AM Yesterday to 7AM Today Intake and Output (Last 24 hours) Intake Administration Information 2200.00 Oral Intake 480.00 Output Urine Voided 850.00 Intra-Op EBL 5.00 Stool Count 0.00 Total Summary Total Intake 2680.00 Total Output 855.00 Fluid Balance 1825.00 Physical Exam Vitals Signs(Last 24 hrs)__ Last Charted Minimum Maximum Temp 36.6(OCTOBER 17 09:58) 36.6(OCTOBER 17 09:58) 36.4(OCTOBER 16 16:14) Heart Rate 80(OCTOBER 17 11:29) 80(OCTOBER 17 11:29) 80(OCTOBER 17 11:29) SBP 105(OCTOBER 17 11:00) 90(OCTOBER 17 08:12) 153(OCTOBER 17 07:33) DBP L 56(OCTOBER 17 11:00) L 52(OCTOBER 17 00:00) 95(OCTOBER 17 08:24) Physical Exam General: No acute distress. Alert and Appropriate. Lungs: Bilaterally diminished breath sounds with no crepitation or wheeze. Unlabored Cardiovascular: Heart is regular rhythm, S1S2, No extra-audible heart tones Abdomen: Abdomen is soft, nontender. Rounded/Obese. Bowel sounds positive all four quadrants. Extremities: No clubbing, cyanosis or edema. Peripheral pulses palpable. Right ankle dressing intact with external fixator. Neurological: The patient is awake, oriented to time, people and place. Following simple commands, moving all extremities. Weight Dosing Weight: 142 kg (10/17/24) Dosing Weight: 146.9 kg (10/16/24) Medications Medications (36) Active Scheduled: (15) acetaminophen 325 mg Tablet 650 mg 2 tab(s), Oral, q6h albuterol 0.083% Soln UD (2.5mg/3 mL) 2.5 mg 3 mL, Inhalation, QIDRT allopurinol 100 mg tablet 100 mg 1 tab(s), Oral, qDay atorvastatin 10 mg tablet 10 mg 1 tab(s), Oral, qHS budesonide 0.25 mg/2 mL Susp UD 0.25 mg 2 mL, Inhalation, BIDRT ceFAZolin syringe 2 gram(s) 20 mL, IV Push (INT), q8hr dofetilide 250 mcg capsule 250 mcg 1 cap(s), Oral, BID duloxetine [address] Capsule 20 mg 1 cap(s), Oral, qDay insulin lispro 100 units/mL Soln (3 mL) Give 0-10 units/dose, Subcutaneous, TIDAC metoprolol succinate 100 mg ER tablet 100 mg 1 tab(s), Oral, BID mupirocin 2% Ointment 22 Gram(s) tube 1 frida, Nostril, each, BID Nexletol 180 mg oral tablet 180 mg, Oral, qDay omeprazole [address] capsule 40 mg 1 cap(s), Oral, BID spironolactone 25 mg tablet 25 mg 1 tab(s), Oral, qDayM traZODONE 100 mg Tablet 100 mg 1 tab(s), Oral, qHS Continuous: (1) Lactated Ringers 1,000 mL 1,000 mL, Intravenous, 100 mL/hr PRN: (20) acetaminophen 325 mg Tablet 650 mg 2 tab(s), Oral, q4h acetaminophen 650 mg Suppository 650 mg 1 supp, Rectal, q4h acetaminophen-OXYcodone 325 mg-5 mg Tablet 1 tab(s), Oral, q4h acetaminophen-OXYcodone 325 mg-5 mg Tablet 2 tab(s), Oral, q4h Al hydrox/Mg hydrox/simethicone 200-200-20 mg/5 mL Susp UD 30 mL, Oral, q2h dextrose 50% Solution Disp syringe 50 mL 25 gram(s) 50 mL, IV Push, AsDirected diphenhydramine 25 mg tablet 25 mg 1 tab(s), Oral, qHS docusate sodium 100 mg Capsule 100 mg 1 cap(s), Oral, BID hydromorphone 1 mg/mL (1mL) INJ 1 mg 1 mL, IV Push, q4h ibuprofen 400 mg tablet 800 mg 2 tab(s), Oral, q6h melatonin 3 mg tablet 3 mg 1 tab(s), Oral, qHS morphine 4 mg/mL 1mL INJ 4 mg 1 mL, IV Push, q3h ondansetron 2 mg/ 1 mL 2 mL INJ 4 mg 2 mL, IV Push, q4h ondansetron 2 mg/ 1 mL 2 mL INJ 4 mg 2 mL, IV Push, q4h ondansetron 4 mg tablet 4 mg 1 tab(s), Oral, q6h oxyCODONE 10 mg Tab (Immediate Release) 10 mg 1 tab(s), Oral, q4h oxycodone 5 mg tablet (immediate release) 5 mg 1 tab(s), Oral, q4h polyethylene glycol 3350 - UD packet 17 gram(s) 15 mL, Oral, qDay polyethylene glycol 3350 - UD packet 17 gram(s) 15 mL, Oral, qDay tiZANidine 2 mg tablet 2 mg 1 tab(s), Oral, q8h Lab Results 10/17 02:46 Protime: 13.7 PT International Ratio: 1.2 10/16 22:14 WBC: 6.9 Hgb: 14.8 Hct: 45.2 Platelet: 172 Neutrophil %: 67.5 10/16 22:08 Glucose Level: 109 Sodium Level: 139 Potassium Level: 3.7 BUN: 10.0 Creatinine Lvl (s): 0.71 10/16 18:50 WBC: 6.5 Hgb: 14.3 Hct: 43.2 Platelet: 152 Neutrophil %: 72.6 Glucose Level: 94 Sodium Level: 140 Potassium Level: 3.6 BUN: 11.0 Creatinine Lvl (s): 0.69 EKG Electrocardiogram (EKG) - InProcess -- 10/16/24 21:21:00 EDT, Complete by Nursing Assessment/Plan Close displaced bimalleolar fracture right ankle Mechanical fall Type 2 diabetes mellitus Hypertension COPD HFpEF Anxiety Atrial fibrillation on Xarelto Gout Hyperlipidemia Hospitalist consulted for medical management Postop day 0 right ankle right ankle spanning external fixator. Management per primary team. Remains nonweightbearing to right lower extremity. DM, glycemic goal less than 180. Will continue sliding scale insulin coverage while inpatient. Resume Trulicity at discharge. Hypertension, continue home regimen COPD, continue home regimen HFpEF, continue spironolactone Anxiety, stable Atrial fibrillation, resume Toprol-XL and Tikosyn. Will resume Xarelto on postop day 1 per orthopedic surgery recommendations. Gout, continue home regimen Hyperlipidemia, continue home regimen We will continue to follow along Plan of care discussed with patient. All questions answered. Patient verbalized understanding is agreeable to plan of care. Discussed with my collaborating physician Dr. Garces. This dictation was performed using voice recognition software and may include grammatical and/or spelling errors. Time Spent 34 min Digitally Signed by GROVER HOFFMAN on 10/17/2024 12:52 PM [id number] Anesthesiology Consult note Patient: SOCORRO KELLEY Age: 54 years Sex: Male : 1970 Associated Diagnoses: None Author: CHANTAL WHEATLEY DO Postoperative Information Post Operative Info: Post op day: Post Anesthesia Care Unit. Patient location: PACU. Assessment Postanesthesia assessment Vitals: Vital signs from flowsheet : Vital Signs 10/17/2024 11:10 EDT Respiratory Rate 16 br/min 10/17/2024 11:10 EDT Peripheral Pulse Rate 72 bpm 10/17/2024 11:00 EDT Respiratory Rate 15 br/min 10/17/2024 11:00 EDT Systolic Blood Pressure Non-Invasive 105 mmHg Diastolic Blood Pressure Non-Invasive 56 mmHg LOW 10/17/2024 9:58 EDT Temperature Oral 36.6 DegC Peripheral Pulse Rate 68 bpm Respiratory Rate 16 br/min Systolic Blood Pressure Non-Invasive 145 mmHg HI Diastolic Blood Pressure Non-Invasive 78 mmHg Reason For Taking VItal Signs Routine 10/17/2024 9:40 EDT Temperature Temporal Artery 36.6 DegC Heart Rate Monitored 74 bpm Respiratory Rate 14 br/min Systolic Blood Pressure Non-Invasive 137 mmHg Diastolic Blood Pressure Non-Invasive 80 mmHg Mean Arterial Pressure (NBP) 95 mmHg 10/17/2024 9:30 EDT Temperature Temporal Artery 36.5 DegC Heart Rate Monitored 78 bpm Respiratory Rate 14 br/min Systolic Blood Pressure Non-Invasive 137 mmHg Diastolic Blood Pressure Non-Invasive 80 mmHg Mean Arterial Pressure (NBP) 95 mmHg 10/17/2024 9:15 EDT Heart Rate Monitored 77 bpm Respiratory Rate 16 br/min Systolic Blood Pressure Non-Invasive 139 mmHg Diastolic Blood Pressure Non-Invasive 75 mmHg Mean Arterial Pressure (NBP) 93 mmHg 10/17/2024 9:00 EDT Heart Rate Monitored 78 bpm Respiratory Rate 14 br/min Systolic Blood Pressure Non-Invasive 139 mmHg Diastolic Blood Pressure Non-Invasive 69 mmHg Mean Arterial Pressure (NBP) 88 mmHg 10/17/2024 8:45 EDT Heart Rate Monitored 77 bpm Respiratory Rate 14 br/min Systolic Blood Pressure Non-Invasive 141 mmHg HI Diastolic Blood Pressure Non-Invasive 80 mmHg Mean Arterial Pressure (NBP) 96 mmHg 10/17/2024 8:30 EDT Temperature Temporal Artery 36.6 DegC Heart Rate Monitored 87 bpm Respiratory Rate 14 br/min Systolic Blood Pressure Non-Invasive 126 mmHg Diastolic Blood Pressure Non-Invasive 64 mmHg Mean Arterial Pressure (NBP) 84 mmHg 10/17/2024 8:25 EDT Heart Rate Monitored 87 bpm bpm Respiratory Rate - Anes 0 br/min br/min 10/17/2024 8:24 EDT Systolic Blood Pressure Non-Invasive 113 mmHg mmHg Diastolic Blood Pressure Non-Invasive 95 mmHg mmHg 10/17/2024 8:21 EDT Systolic Blood Pressure Non-Invasive 102 mmHg mmHg Diastolic Blood Pressure Non-Invasive 68 mmHg mmHg 10/17/2024 8:20 EDT Heart Rate Monitored 63 bpm bpm Respiratory Rate - Anes 14 br/min br/min 10/17/2024 8:18 EDT Systolic Blood Pressure Non-Invasive 94 mmHg mmHg Diastolic Blood Pressure Non-Invasive 62 mmHg mmHg 10/17/2024 8:15 EDT Heart Rate Monitored 65 bpm bpm Respiratory Rate - Anes 14 br/min br/min Systolic Blood Pressure Non-Invasive 91 mmHg mmHg Diastolic Blood Pressure Non-Invasive 55 mmHg mmHg 10/17/2024 8:12 EDT Systolic Blood Pressure Non-Invasive 90 mmHg mmHg Diastolic Blood Pressure Non-Invasive 55 mmHg mmHg 10/17/2024 8:10 EDT Temperature (Route Not Specified) 36.98 DegC DegC Heart Rate Monitored 67 bpm bpm Respiratory Rate - Anes 16 br/min br/min 10/17/2024 8:09 EDT Systolic Blood Pressure Non-Invasive 101 mmHg mmHg Diastolic Blood Pressure Non-Invasive 61 mmHg mmHg 10/17/2024 8:06 EDT Systolic Blood Pressure Non-Invasive 100 mmHg mmHg Diastolic Blood Pressure Non-Invasive 61 mmHg mmHg 10/17/2024 8:05 EDT Temperature (Route Not Specified) 36.94 DegC DegC Heart Rate Monitored 71 bpm bpm Respiratory Rate - Anes 16 br/min br/min 10/17/2024 8:03 EDT Systolic Blood Pressure Non-Invasive 100 mmHg mmHg Diastolic Blood Pressure Non-Invasive 66 mmHg mmHg 10/17/2024 8:00 EDT Temperature (Route Not Specified) 36.91 DegC DegC Heart Rate Monitored 73 bpm bpm Respiratory Rate - Anes 16 br/min br/min Systolic Blood Pressure Non-Invasive 102 mmHg mmHg Diastolic Blood Pressure Non-Invasive 67 mmHg mmHg 10/17/2024 7:57 EDT Systolic Blood Pressure Non-Invasive 107 mmHg mmHg Diastolic Blood Pressure Non-Invasive 65 mmHg mmHg 10/17/2024 7:55 EDT Temperature (Route Not Specified) 36.9 DegC DegC Heart Rate Monitored 78 bpm bpm Respiratory Rate - Anes 16 br/min br/min 10/17/2024 7:54 EDT Systolic Blood Pressure Non-Invasive 107 mmHg mmHg Diastolic Blood Pressure Non-Invasive 70 mmHg mmHg 10/17/2024 7:51 EDT Systolic Blood Pressure Non-Invasive 103 mmHg mmHg Diastolic Blood Pressure Non-Invasive 63 mmHg mmHg 10/17/2024 7:50 EDT Temperature (Route Not Specified) 36.96 DegC DegC Heart Rate Monitored 79 bpm bpm Respiratory Rate - Anes 16 br/min br/min 10/17/2024 7:48 EDT Systolic Blood Pressure Non-Invasive 112 mmHg mmHg Diastolic Blood Pressure Non-Invasive 74 mmHg mmHg 10/17/2024 7:45 EDT Temperature (Route Not Specified) 37.03 DegC DegC Heart Rate Monitored 79 bpm bpm Respiratory Rate - Anes 10 br/min br/min Systolic Blood Pressure Non-Invasive 101 mmHg mmHg Diastolic Blood Pressure Non-Invasive 65 mmHg mmHg 10/17/2024 7:42 EDT Systolic Blood Pressure Non-Invasive 112 mmHg mmHg Diastolic Blood Pressure Non-Invasive 70 mmHg mmHg 10/17/2024 7:40 EDT Heart Rate Monitored 84 bpm bpm Respiratory Rate - Anes 10 br/min br/min 10/17/2024 7:39 EDT Systolic Blood Pressure Non-Invasive 100 mmHg mmHg Diastolic Blood Pressure Non-Invasive 88 mmHg mmHg 10/17/2024 7:36 EDT Systolic Blood Pressure Non-Invasive 143 mmHg mmHg Diastolic Blood Pressure Non-Invasive 85 mmHg mmHg 10/17/2024 7:35 EDT Heart Rate Monitored 84 bpm bpm Respiratory Rate - Anes 0 br/min br/min 10/17/2024 7:33 EDT Systolic Blood Pressure Non-Invasive 153 mmHg mmHg Diastolic Blood Pressure Non-Invasive 83 mmHg mmHg 10/17/2024 7:30 EDT Respiratory Rate - Anes 0 br/min br/min 10/17/2024 1:12 EDT Temperature Oral 36.7 DegC Peripheral Pulse Rate 76 bpm Respiratory Rate 18 br/min Systolic Blood Pressure Non-Invasive 137 mmHg Diastolic Blood Pressure Non-Invasive 82 mmHg Blood Pressure Method Automatic Blood Pressure Location Left arm Blood Pressure Cuff Size Medium Reason For Taking VItal Signs Routine 10/17/2024 0:00 EDT Heart Rate Monitored 80 bpm Respiratory Rate 18 br/min 10/17/2024 0:00 EDT Systolic Blood Pressure Non-Invasive 106 mmHg Diastolic Blood Pressure Non-Invasive 52 mmHg LOW 10/16/2024 23:45 EDT Heart Rate Monitored 80 bpm Respiratory Rate 22 br/min AL 10/16/2024 23:45 EDT Systolic Blood Pressure Non-Invasive 124 mmHg Diastolic Blood Pressure Non-Invasive 68 mmHg Mean Arterial Pressure (NBP) 86 mmHg Reason For Taking VItal Signs Pain assessment 10/16/2024 22:30 EDT Heart Rate Monitored 78 bpm Respiratory Rate 17 br/min 10/16/2024 22:30 EDT Systolic Blood Pressure Non-Invasive 133 mmHg Diastolic Blood Pressure Non-Invasive 73 mmHg Mean Arterial Pressure (NBP) 85 mmHg 10/16/2024 20:15 EDT Heart Rate Monitored 66 bpm Respiratory Rate 17 br/min 10/16/2024 20:15 EDT Systolic Blood Pressure Non-Invasive 147 mmHg AL Diastolic Blood Pressure Non-Invasive 81 mmHg Mean Arterial Pressure (NBP) 103 mmHg 10/16/2024 18:15 EDT Heart Rate Monitored 63 bpm Respiratory Rate 12 br/min [facility] 10/16/2024 18:15 EDT Systolic Blood Pressure Non-Invasive 124 mmHg Diastolic Blood Pressure Non-Invasive 71 mmHg Mean Arterial Pressure (NBP) 88 mmHg 10/16/2024 16:30 EDT Heart Rate Monitored 68 bpm Respiratory Rate 14 br/min 10/16/2024 16:30 EDT Systolic Blood Pressure Non-Invasive 125 mmHg Diastolic Blood Pressure Non-Invasive 73 mmHg Mean Arterial Pressure (NBP) 90 mmHg 10/16/2024 16:14 EDT Temperature Oral 36.4 DegC Peripheral Pulse Rate 68 bpm Respiratory Rate 16 br/min Systolic Blood Pressure Non-Invasive 126 mmHg Diastolic Blood Pressure Non-Invasive 93 mmHg HI Blood Pressure Method Automatic Blood Pressure Location Left arm Blood Pressure Cuff Size Large , Oxygen Therapy : Oxygen Therapy & Oxygenation Information 10/17/2024 11:10 EDT Oxygen Saturation 98 % 10/17/2024 11:00 EDT Oxygen Saturation 98 % 10/17/2024 10:45 EDT Oxygen Therapy Nasal cannula 0L-6L Oxygen Activity Oxygen On Oxygen Flow Rate 3 L/min 10/17/2024 9:58 EDT Oxygen Saturation 94 % 10/17/2024 9:58 EDT Oxygen Therapy Nasal cannula 0L-6L Oxygen Flow Rate 3 L/min 10/17/2024 9:40 EDT Oxygen Therapy Nasal cannula 0L-6L Oxygen Saturation 94 % Oxygen Flow Rate 3 L/min 10/17/2024 9:30 EDT Oxygen Therapy Nasal cannula 0L-6L Oxygen Saturation 94 % Oxygen Flow Rate 3 L/min 10/17/2024 9:15 EDT Oxygen Therapy Nasal cannula 0L-6L Oxygen Saturation 95 % Oxygen Flow Rate 3 L/min 10/17/2024 9:00 EDT Oxygen Therapy Nasal cannula 0L-6L Oxygen Saturation 97 % Oxygen Flow Rate 3 L/min 10/17/2024 8:45 EDT Oxygen Therapy Nasal cannula 0L-6L Oxygen Saturation 96 % Oxygen Flow Rate 3 L/min 10/17/2024 8:30 EDT Oxygen Therapy Simple mask Oxygen Saturation 95 % Oxygen Flow Rate 4 L/min 10/17/2024 8:25 EDT Oxygen Saturation 100 % % 10/17/2024 8:20 EDT Oxygen Saturation 96 % % 10/17/2024 8:15 EDT Oxygen Saturation 95 % % 10/17/2024 8:10 EDT Oxygen Saturation 96 % % 10/17/2024 8:05 EDT Oxygen Saturation 97 % % 10/17/2024 8:00 EDT Oxygen Saturation 98 % % 10/17/2024 7:55 EDT Oxygen Saturation 98 % % 10/17/2024 7:50 EDT Oxygen Saturation 98 % % 10/17/2024 7:45 EDT Oxygen Saturation 99 % % 10/17/2024 7:40 EDT Oxygen Saturation 100 % % 10/17/2024 7:35 EDT Oxygen Saturation 100 % % 10/17/2024 1:12 EDT Oxygen Therapy Room air Oxygen Saturation 94 % 10/17/2024 0:00 EDT Oxygen Saturation 94 % 10/17/2024 0:00 EDT Oxygen Therapy Room air 10/16/2024 23:45 EDT Oxygen Saturation 91 % LOW 10/16/2024 22:30 EDT Oxygen Saturation 97 % 10/16/2024 22:30 EDT Oxygen Therapy Room air 10/16/2024 20:15 EDT Oxygen Saturation 100 % 10/16/2024 20:15 EDT Oxygen Therapy Room air 10/16/2024 18:15 EDT Oxygen Saturation 94 % 10/16/2024 18:15 EDT Oxygen Therapy Room air 10/16/2024 16:30 EDT Oxygen Saturation 94 % 10/16/2024 16:14 EDT Oxygen Therapy Room air Oxygen Saturation 95 % . Mental status: at preoperative baseline. Respiratory function: respirations are non-labored, Stable. Respiratory support: none. CV function: Stable. Cardiovascular support: none. Pain: Satisfactory. Nausea status: Satisfactory. Postoperative hydration status: within normal limits. Notes: Patient is sufficiently recovered from anesthesia to participate in the evaluation. No follow-up care needed. No complications post-anesthesia.. Digitally Signed by CHANTAL WHEATLEY DO on 10/17/2024 11:13 AM [facility] [id number] Note* Exam Date Time Procedure Performing Provider Status 10/17/24 10:[address] Ankle w/o Contrast Right KATHY REVELES MD; Auth (Verified) [id number] ORIGINAL EXAMINATION: CT OF THE RIGHT ANKLE WITHOUT CONTRAST10/17/2024 11:02 am COMPARISON: Radiographs 10/16/2024 TECHNIQUE: CT of the right ankle was performed without the administration of intravenous contrast. Multiplanar reformatted images are provided for review. Automated exposure control, iterative reconstruction, and/or weight based adjustment of the mA/kV was utilized to reduce the radiation dose to as low as reasonably achievable. HISTORY: ORDERING SYSTEM PROVIDED HISTORY: Reason for Exam: s/p Right ankle spanning external fixator, multiplanar 10/17. transfer from [facility]. for right ankle fracture with dislocation. Surgical planning, right ankle fracture, FINDINGS: There is external fixator extending through the calcaneus. The proximal fixator is not included. There is some hardware artifact at this level. There is again demonstration of a mildly comminuted and mildly displaced oblique fracture of the distal fibula with extension to the level of the superior portion of the distal tibia-fibular syndesmosis without syndesmotic joint widening. There is no involvement of the lateral malleolus by acute fracture. There are multiple well corticated ossicles distal to the lateral malleolus that may be remote avulsions. No acute fracture of the tibia is seen. There are multiple well corticated ossicles distal to the medial malleolus also nonacute. Tibiotalar alignment is normal. There are no fractures of the tarsal bones seen on this study. Lisfranc joints seem to be intact. 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 There is nonspecific soft tissue edema but no localized hematoma is seen. IMPRESSION: Mildly displaced mildly comminuted distal fibular fracture. No other acute fracture or dislocation is seen at the ankle. Interpreted by: Lucius Reveles MD Preliminary Report By: Lucius Reveles MD Electronically signed By Lucius Reveles MD Dictated Date: 10/17/2024 1:10:32 PM Prelim Date: 10/17/2024 1:17:29 PM Sign Date: 10/17/2024 1:17:29 PM Ordering Provider: TARA MISHRA [facility] [id number] History and physical note Date of Service 10/16/2024 Chief Complaint Pt here from [facility] via squad after a mechanical fall causing a fracture to his right ankle. They splinted it in their ED and sent to [place] for surgical consult. History of Present Illness Patient is a 54-year-old male who [facility] to [facility] emergency department as a transfer from [facility] for his right ankle fracture. Patient reports that he was helping his friend move when he slipped on a piece of siding and twisted his right ankle. Of note he previously broke his left ankle in early August for which she is being treated nonoperatively, weightbearing as tolerated in a walking boot. He does have a history of A-fib for which she is on Xarelto, last dose today. He has a history of congestive heart failure, he is a diabetic on Trulicity and he does not smoke butdoes chew tobacco. He denies any other orthopedic complaints besides his right ankle, he denies anynumbness tingling distally in his right lower extremity. Review of Systems REVIEW OF SYSTEMS: No fever, no chills, no weight change. HEENT: No sore throat, earache, or congestion. No neck pain. Heart: No chest pain. No palpitations. Lungs: No shortness of breath or cough. GI: No nausea, no vomiting, no diarrhea, no constipation, no anorexia. : No dysuria, frequency or urgency. No hematuria. Musculoskeletal: see above Skin: No rash or itching. Psychiatric: No anxiety, no depression. Endocrine: No polyuria or polydipsia. Physical Exam Vitals and Measurements T: 36.4 C (Oral) HR: 66 (Monitored) RR: 17 BP: 147/81 SpO2: 100% WT: 146.9 kg Weight Dosing Weight: 146.9 kg (10/16/24) General: NAD, A&Ox3 HEENT: normocephalic, atraumatic, EOMI intact CV: pulses regular throughout, brisk cap refill throughout, Pulm: normal work of breathing, equal chest rise bilaterally, no intercostal retractions or conversational dyspnea GI: abdomen is soft, nontender, nondistended, no rigidity or guarding Psych: calm and cooperative Right lower extremity: Skin is intact with significant swelling and ecchymosis about the ankle. There are multiple fracture blisters over the anterior medial and lateral aspects of his right ankle. EHL/FHL intact Sensation intact to light touch L4-S1 Brisk capillary refill to toes Lab Results 10/16 18:50 WBC: 6.5 Hgb: 14.3 Hct: 43.2 Platelet: 152 Neutrophil %: 72.6 Glucose Level: 94 Sodium Level: 140 Potassium Level: 3.6 BUN: 11.0 Creatinine Lvl (s): 0.69 Imaging Results and Diagnostics XR Ankle Minimum 3 Views Right Result Date: October 16, 2024 Verified By: TRACE FIERRO MD CLINICAL STATEMENT: IMPRESSION: No significant change in alignment post reduction. I have personally reviewed the images of this examination and agree with theresident's findings and interpretation. XR Ankle Minimum 3 Views Right Result Date: October 16, 2024 Verified By: TRACE FIERRO MD CLINICAL STATEMENT: IMPRESSION: No significant change in alignment post reduction. I have personally reviewed the images of this examination and agree with theresident's findings and interpretation. XR Ankle Minimum 3 Views Right Result Date: October 16, 2024 Verified By: TRACE FIERRO MD CLINICAL STATEMENT: IMPRESSION: Fracture subluxation of the ankle. Possible nondisplaced fracture inferior aspect of cuboid bone. Fracturefragments at medial aspect of talus inferior to medial malleolus with unclearorigin. I have personally reviewed the images of this examination and agree with theresident's findings and interpretation. Assessment/Plan Closed displaced bimalleolar fracture of right ankle - 54-year-old male presents after mechanical ground-level fall this was a closed, isolated injury. Patient is NV intact. -I explained to the patient the need for surgical intervention to prevent major morbidity mortalitywith nonoperative treatment. Patient voiced understanding and was agreeable to proceed. -Will obtain informed consent and plan for right ankle spanning external fixator with Dr. Quintana on 10/16/2024. -Patient placed in a AO splint -Hold any chemical DVT prophylaxis at this time - will order SCDs -Pain control -Percocet/morphine -Bedrest, NWB right lower extremity -N.p.o. at midnight - Ancef on-call to the OR -We will order type and screen preoperatively. Patient's current hemoglobin 14.3, platelets 152 -Awaiting medical optimization -Plan discussed with Dr. Quintana Orders: acetaminophen(Tylenol), 650 mg= 2 tab(s), Oral, q4h, PRN acetaminophen-oxyCODONE(Percocet 325/5), 2 tab(s), Oral, q4h, PRN acetaminophen-oxyCODONE(Percocet 325/5), 1 tab(s), Oral, q4h, PRN diphenhydrAMINE(Benadryl), 25 mg= 1 tab(s), Oral, qHS, PRN docusate(Colace), 100 mg= 1 cap(s), Oral, BID, PRN glucose(Dextrose 50% IV Push), 25 gram(s)= 50 mL, IV Push, AsDirected, PRN Lactated Ringers Infusion 1000 mL(LR 1000 mL), 1000 mL, Intravenous morphine, 4 mg= 1 mL, IV Push, q3h, PRN ondansetron(Zofran), 4 mg= 2 mL, IV Push, q4h, PRN polyethylene glycol 3350(Miralax Powder Packet), 17 gram(s)= 15 mL, Oral, qDay, PRN Basic Metabolic Panel(BMP), 10/16/24 21:21:00 EDT, Timed Study (collect at specified time), Blood, q24h, for 5 day(s), Preferred Lab: [facility], Stop date 10/20/24 22:00:00 EDT Bedrest, 10/16/24 21:21:00 EDT, Strict, continuous, Constant order Blood Glucose Call Parameter, 10/16/24 21:21:00 EDT, If patient is NPO for x-ray or surgery and hypoglycemic, call physician for further orders, 10/16/24 21:21:00 EDT Blood Glucose Call Parameter, 10/16/24: EDT, call provider if patient's blood glucose is <70mg/dL, 10/16/24:21:00 EDT Blood Glucose Monitoring Bedside PRN, 10/16/24:21: EDT, PRN Order, For signs/symptoms of hypoglycemia Communication Order (continuous), 10/16/24:21: EDT, Stat EKG will be obtained in the setting of new, ongoing or worsening chest discomfort/acute coronary syndrome symptoms in all nursing units and/or rhythm change in all monitored units., 10/16/24:21:00 EDT Complete Blood Count(CBC), 10/16/24:21:00 EDT, Timed Study (collect at specified time), Blood, q24h, for 5 day(s), Preferred Lab: [facility], Stop date 10/20/24 22:00:00 EDT Complete Metabolic Panel(CMP), 10/16/24:21:00 EDT, URGENT (collect within 2 hrs), Blood, Once, Nurse Collect, Preferred Lab: [facility], Stop date 10/16/24 21:37:00 EDT Consult to Physician, 10/16/24 21:21:00 EDT, [facility]OS[facility]ITAL[facility] (For Consultation Assignment OnlyNO other Orders), Routine, medical clearance, follow medically Diet Order, 10/16/24:21:00 EDT, Start Meal: Next meal, Regular, Constant Order, : N/A, : N/A Electrocardiogram(EKG), 10/16/24 21:21:00 EDT, Complete by Nursing Incentive Spirometer, 10/16/24:21:00 EDT, [id number] Intake and Output, 10/16/24 21:21:00 EDT, q8h (2p, 10p, 6a) IV Catheter Insertion/Care(Peripheral IV Insertion/Care), 10/16/24 21:21:00 EDT, IV Care: Once, 18 gauge angiocath, if possible Pulse Oximeter - Intermittent, 10/16/24 21:21:00 EDT, AsDirected, PRN order, On admission and as indicated Type and Screen, 10/16/24 21:21:00 EDT, URGENT (collect within 2 hrs), Blood, Once, Nurse Collect, Preferred Lab: [facility], Stop date 10/16/24 21:21:00 EDT Vital Signs, 10/16/24 21:21:00 EDT, q8h Problem List/Past Medical History Ongoing Asthma exacerbation Atopic dermatitis Atypical chest pain Bronchitis Cardiomyopathy Chewing tobacco nicotine dependence CHF with cardiomyopathy COPD exacerbation Cough Dental abscess Depression Dyspnea Generalized anxiety disorder Hypertension associated with type 2 diabetes mellitus Insomnia LVH (left ventricular hypertrophy) Moderate asthma Morbid obesity with BMI of 40.0-44.9, adult Near syncope KOFFI (obstructive sleep apnea) Paroxysmal atrial fibrillation Right knee pain Screening for colon cancer Screening for ischemic heart disease Statin intolerance Tachyarrhythmia Type 2 diabetes mellitus with hemoglobin A1c goal of less than 7.0% Type 2 diabetes mellitus with hyperlipidemia Historical Anxiety BMI 45.0-49.9, adult Diabetes mellitus Hyperlipidemia Hypertension Mass of arm Morbid obesity Obstructive sleep apnea Prediabetes Right flank pain Procedure/Surgical History Excision: 03/25/24 Echocardiogram: 01/31/24 Cardioversion: 12/23/22 Echocardiogram: 11/11/22 Elbow Medications Home Medications (20) Active albuterol 2.5 mg/3 mL (0.083%) inhalation solution 2.5 mg = 3 mL, Inhalation, q6h allopurinol 100 mg oral tablet 100 mg = 1 tab(s), Oral, qDay cetirizine 10 mg oral tablet 10 mg = 1 tab(s), Oral, Daily DULoxetine 20 mg oral delayed release capsule 20 mg = 1 cap(s), Oral, qDay furosemide 20 mg oral tablet 20 mg = 1 tab(s), Oral, Daily Nexletol 180 mg oral tablet 180 mg = 1 tab(s), Oral, qDay omeprazole 40 mg oral delayed release capsule 40 mg = 1 cap(s), Oral, BID Potassium Chloride (Eqv-K-Tab) 10 mEq oral tablet, extended release 10 mEq = 1 tab(s), Oral, qDay Potassium Chloride (Eqv-K-Tab) 20 mEq oral tablet, extended release 20 mEq = 1 tab(s), Oral, qDay pravastatin 40 mg oral tablet 40 mg = 1 tab(s), Oral, qDay spironolactone 25 mg oral tablet 25 mg = 1 tab(s), Oral, qDay Symbicort 80 mcg-4.5 mcg/inh Inhaler 2 puff(s), Inhalation, BID Tikosyn 250 mcg oral capsule 250 mcg = 1 cap(s), Oral, BID tiZANidine 2 mg oral tablet 2 mg = 1 tab(s), PRN, Oral, q8h Toprol-XL 100 mg oral tablet, extended release 100 mg = 1 tab(s), Oral, BID traZODone 100 mg oral tablet 100 mg = 1 tab(s), Oral, qHS Trulicity Pen 1.5 mg/0.5 mL subcutaneous solution 1.5 mg, Subcutaneous, qWeek Tylenol , PRN, Oral Vistaril 25 mg oral capsule 25 mg = 1 cap(s), PRN, Oral, QID Xarelto 20 mg oral tablet 20 mg = 1 tab(s), Oral, qHS Allergies Statins myalgia Social History Alcohol Use: Past., 07/11/2022 Nutrition/Health Caffeine intake amount: pop 3 daily., 11/08/2022 Substance Abuse Use: Never., 07/11/2022 Tobacco Nicotine Use: Former smoker, quit more than 30 days ago, former chewer of tobacco. Type: Oral (Snuff, Chew). Smokeless Tobacco Use: Former smokeless tobacco user, quit more than 30 days ago, stopped snuff October 2022., 01/12/2024 Nicotine Use: Former smoker, quit more than 30 days ago., 07/11/2022 Family History Cancer: Father. Heart disease: Mother and Grandparent. Stroke: Father. Health Status Family Member(s) Immunizations pneumococcal 13-valent conjugate vaccine: 0.5 unknown unit (04/12/22) SARS-CoV-2 (COVID-19) mRNA-1273 vaccine: 0 unknown unit (09/11/20) SARS-CoV-2 (COVID-19) mRNA-1273 vaccine: 0 unknown unit (08/14/20) Code Status Code Status - Ordered -- 10/16/24 20:56:00 EDT, Full Code, Constant Order Digitally Signed by RIC ARELLANO DO on 10/16/2024 09:43 PM [facility] [id number] Anesthesiology Consult note Patient: SOCORRO KELLEY Age: 54 years Sex: Male : 1970 Associated Diagnoses: None Author: MELISSA MARIN MD Preoperative Information Procedure/ Case: right ankle external fixator placement Time of last food or liquid consumption: 10/17/2024 00:00:00 Anesthesia history Patient's history: negative. Family's history: negative. Health Status Allergies: Nonallergic Reactions (Selected) Severity Not Documented Statins- Myalgia., Allergies (1) ActiveSeverityReaction Statinsmyalgia Current medications: (Selected) Inpatient Medications Ordered Ancef: 3 gram(s), 80 mL, 240 mL/hr, IV Piggyback, PREOP pharm Benadryl: 25 mg, 1 tab(s), Oral, qHS, PRN: Sleep Colace: 100 mg, 1 cap(s), Oral, BID, PRN: Constipation Dextrose 50% IV Push: 25 gram(s), 50 mL, IV Push, AsDirected, PRN: Low blood sugar HumuLIN R: Give 0-10 units/dose, Subcutaneous, q6hr LR 1,000 mL: 125 mL/hr, Intravenous Miralax Powder Packet: 17 gram(s), 15 mL, Oral, qDay, PRN: Constipation Percocet 325/5: 1 tab(s), Oral, q4h, PRN: Pain, scale 4-6 Percocet 325/5: 2 tab(s), Oral, q4h, PRN: Pain, scale 7-10 Tylenol: 650 mg, 2 tab(s), Oral, q4h, PRN: Pain, scale 1-3 Zofran: 4 mg, 2 mL, IV Push, q4h, PRN: Nausea/Vomiting morphine: 4 mg, 1 mL, IV Push, q3h, PRN: Pain, scale 7-10 mupirocin 2% topical ointment: 1 frida, Nostril, each, BID Prescriptions Prescribed Nexletol 180 mg oral tablet: 180 mg, 1 tab(s), Oral, qDay, 30 tab(s), 5 Refill(s) Potassium Chloride (Eqv-K-Tab) 10 mEq oral tablet, extended release: 10 mEq, 1 tab(s), Oral, qDay, 30 tab(s), 3 Refill(s) Potassium Chloride (Eqv-K-Tab) 20 mEq oral tablet, extended release: 20 mEq, 1 tab(s), Oral, qDay, Take with food, 90 tab(s), 3 Refill(s) Symbicort 80 mcg-4.5 mcg/inh Inhaler: 2 puff(s), Inhalation, BID, for 90 day(s), 30.6 gram(s), 3 Refill(s) Tikosyn 250 mcg oral capsule: 250 mcg, 1 cap(s), Oral, BID, 180 cap(s), 4 Refill(s) Toprol-XL 100 mg oral tablet, extended release: 100 mg, 1 tab(s), Oral, BID, for 90 day(s), do not crush or chew, 180 tab(s), 0 Refill(s) Trulicity Pen 1.5 mg/0.5 mL subcutaneous solution: 1.5 mg, Subcutaneous, qWeek, for 90 day(s), 12 EA, 3 Refill(s) Vistaril 25 mg oral capsule: 25 mg, 1 cap(s), Oral, QID, for 30 day(s), PRN: as needed for anxiety,120 cap(s), 3 Refill(s) Xarelto 20 mg oral tablet: 20 mg, 1 tab(s), Oral, qHS, 90 tab(s), 11 Refill(s) albuterol 2.5 mg/3 mL (0.083%) inhalation solution: 2.5 mg, 3 mL, Inhalation, q6h, 120 EA, 0 Refill(s) allopurinol 100 mg oral tablet: 100 mg, 1 tab(s), Oral, qDay, 90 tab(s), 3 Refill(s) cetirizine 10 mg oral tablet: 10 mg, 1 tab(s), Oral, Daily, for 90 day(s), 90 tab(s), 3 Refill(s) omeprazole 40 mg oral delayed release capsule: 40 mg, 1 cap(s), Oral, BID, before a meal., 180 cap(s), 0 Refill(s) spironolactone 25 mg oral tablet: 25 mg, 1 tab(s), Oral, qDay, for 90 day(s), 90 tab(s), 3 Refill(s) tiZANidine 2 mg oral tablet: 2 mg, 1 tab(s), Oral, q8h, for 7 day(s), PRN: as needed for muscle spasm, 21 tab(s), 3 Refill(s) traZODone 100 mg oral tablet: 100 mg, 1 tab(s), Oral, qHS, 90 tab(s), 3 Refill(s) Documented Medications Documented DULoxetine 20 mg oral delayed release capsule: 20 mg, 1 cap(s), Oral, qDay Tylenol: 1,000 mg, Oral, q4h, PRN: as needed for pain, 0 Refill(s) pravastatin 40 mg oral tablet: 40 mg, 1 tab(s), Oral, qDay, 30 tab(s), 0 Refill(s), Medications (13) Active Scheduled: (3) ceFAZolin bag 3 gram(s) 80 mL, IV Piggyback, PREOP pharm insulin regular human recombinant 100 units/ml (10 mL) Solution Give 0-10 units/dose, Subcutaneous,q6hr mupirocin 2% Ointment 22 Gram(s) tube 1 frida, Nostril, each, BID Continuous: (1) Lactated Ringers 1,000 mL 1,000 mL, Intravenous, 125 mL/hr PRN: (9) acetaminophen 325 mg Tablet 650 mg 2 tab(s), Oral, q4h acetaminophen-OXYcodone 325 mg-5 mg Tablet 1 tab(s), Oral, q4h acetaminophen-OXYcodone 325 mg-5 mg Tablet 2 tab(s), Oral, q4h dextrose 50% Solution Disp syringe 50 mL 25 gram(s) 50 mL, IV Push, AsDirected diphenhydramine 25 mg tablet 25 mg 1 tab(s), Oral, qHS docusate sodium 100 mg Capsule 100 mg 1 cap(s), Oral, BID morphine 4 mg/mL 1mL INJ 4 mg 1 mL, IV Push, q3h ondansetron 2 mg/ 1 mL 2 mL INJ 4 mg 2 mL, IV Push, q4h polyethylene glycol 3350 - UD packet 17 gram(s) 15 mL, Oral, qDay Problem list: Medical Asthma exacerbation / SNOMED CT 2431402252 / Confirmed COPD exacerbation / SNOMED CT 6216734995 / Confirmed Atopic dermatitis / SNOMED CT 10534064 / Confirmed Atypical chest pain / SNOMED CT 761039303 / Confirmed Morbid obesity with BMI of 40.0-44.9, adult / SNOMED CT 9026580321 / Confirmed Bronchitis / SNOMED CT 83044534 / Confirmed Cardiomyopathy / SNOMED CT 863113243 / Confirmed CHF with cardiomyopathy / SNOMED CT 75865249 / Confirmed Cough / SNOMED CT 97362847 / Confirmed Dental abscess / SNOMED CT 800022099 / Confirmed Depression / SNOMED CT 28524759 / Confirmed Dyspnea / SNOMED CT 715761509 / Confirmed Generalized anxiety disorder / SNOMED CT 02338329 / Confirmed Hypertension associated with type 2 diabetes mellitus / SNOMED CT 7322210057 / Confirmed Insomnia / SNOMED CT 058537713 / Confirmed LVH (left ventricular hypertrophy) / SNOMED CT 90789988 / Confirmed Moderate asthma / SNOMED CT 9041547288 / Confirmed Near syncope / SNOMED CT 3689921474 / Confirmed Chewing tobacco nicotine dependence / SNOMED CT 70470915 / Confirmed KOFFI (obstructive sleep apnea) / SNOMED CT 545047235 / Confirmed Right knee pain / SNOMED CT 7136085320 / Confirmed Paroxysmal atrial fibrillation / SNOMED CT 854154293 / Confirmed Screening for ischemic heart disease / SNOMED CT 170188076 / Confirmed Screening for colon cancer / SNOMED CT 233407590 / Confirmed Statin intolerance / SNOMED CT 0758054149 / Confirmed Tachyarrhythmia / SNOMED CT 49123279 / Confirmed Type 2 diabetes mellitus with hemoglobin A1c goal of less than 7.0% / SNOMED CT 439421670 / Confirmed Type 2 diabetes mellitus with hyperlipidemia / SNOMED CT 453277676 / Confirmed, Active Problems (32) Asthma exacerbation Atopic dermatitis Atrial fibrillation Atypical chest pain Bronchitis Cardiomyopathy Chewing tobacco nicotine dependence CHF with cardiomyopathy COPD exacerbation Cough Dental abscess Depression Dyspnea Generalized anxiety disorder GERD (gastroesophageal reflux disease) Gout HTN (hypertension) Hypertension associated with type 2 diabetes mellitus Insomnia LVH (left ventricular hypertrophy) Moderate asthma Morbid obesity with BMI of 40.0-44.9, adult Near syncope KOFFI (obstructive sleep apnea) Paroxysmal atrial fibrillation Right knee pain Screening for colon cancer Screening for ischemic heart disease Statin intolerance Tachyarrhythmia Type 2 diabetes mellitus with hemoglobin A1c goal of less than 7.0% Type 2 diabetes mellitus with hyperlipidemia Histories Past Medical History: Resolved Morbid obesity (721106268): Resolved. Diabetes mellitus (563449355): Resolved. Hypertension (6228657844): Resolved. BMI 45.0-49.9, adult (1452270423): Resolved. Anxiety (36558833): Resolved. Prediabetes (8518949270): Resolved. Obstructive sleep apnea (839035706): Resolved. Right flank pain (475752317): Resolved. Hyperlipidemia (95706031): Resolved. Mass of arm (772486550): Resolved. Family History: Cancer Father Heart disease Mother Grandparent Stroke Father Procedure history: Excision ([id number]) on 03/25/2024 at 53 Years. Comments: 03/26/2024 7:50 Karol Curry LPN excision of multilobulated lipomatous mass right forearm Echocardiogram ([id number]) on 01/31/2024 at 53 Years. Cardioversion ([id number]) on 12/23/2022 at 52 Years. Echocardiogram ([id number]) on 11/11/2022 at 52 Years. Comments: 03/20/2023 17:58 Ella Flood MA (ABR-OE) 1. Left ventricle: The cavity size is at the upper limits of normal. Wall thickness is moderately to severely increased. Systolic function is moderately to severely reduced. The estimated ejection fraction is 30-35%. Diastolic dysfunction present but unable to assess severity. 2. Ventricular septum: Septal motion is dyssynergic. 3. Mitral valve: There is mild regurgitation. 4. Left atrium: The atrium is severely dilated. 5. Right ventricle: The cavity size is mildly increased. The RV systolic pressure by Doppler is 40 mm Hg. 6. Right atrium: The atrium is dilated. The estimated right atrial pressure is 15 mm Hg [facility] ([id number]). Comments: 07/11/2022 8:26 SHAHEEN Nunez - right Social History: Social & Psychosocial Habits Alcohol 10/17/2024 Use: Past Substance Abuse 10/17/2024 Use: Never Tobacco 10/17/2024 Tobacco Use: Former smoker, quit more 10/17/2024 Tobacco Use: Former smoker, quit more, former chewer of tobacco Type: Oral (Snuff, Chew) Smokeless tobacco use: Former smokeless tobacco, stopped snuff October 2022 Home/Environment 10/17/2024 Living situation: Home/Independent Domestic Concerns None Lives In Single level home Nutrition/Health 10/17/2024 Type of diet: Regular Caffeine intake amount: no caffeine Appetite Good Eating Difficulties None Physical Examination Vital Signs 10/17/2024 1:12 EDT Temperature Oral 36.7 DegC Peripheral Pulse Rate 76 bpm Respiratory Rate 18 br/min Systolic Blood Pressure Non-Invasive 137 mmHg Diastolic Blood Pressure Non-Invasive 82 mmHg Blood Pressure Method Automatic Blood Pressure Location Left arm Blood Pressure Cuff Size Medium Reason For Taking VItal Signs Routine 10/17/2024 0:00 EDT Heart Rate Monitored 80 bpm Respiratory Rate 18 br/min 10/17/2024 0:00 EDT Systolic Blood Pressure Non-Invasive 106 mmHg Diastolic Blood Pressure Non-Invasive 52 mmHg LOW 10/16/2024 23:45 EDT Heart Rate Monitored 80 bpm Respiratory Rate 22 br/min HI 10/16/2024 23:45 EDT Systolic Blood Pressure Non-Invasive 124 mmHg Diastolic Blood Pressure Non-Invasive 68 mmHg Mean Arterial Pressure (NBP) 86 mmHg Reason For Taking VItal Signs Pain assessment 10/16/2024 22:30 EDT Heart Rate Monitored 78 bpm Respiratory Rate 17 br/min 10/16/2024 22:30 EDT Systolic Blood Pressure Non-Invasive 133 mmHg Diastolic Blood Pressure Non-Invasive 73 mmHg Mean Arterial Pressure (NBP) 85 mmHg 10/16/2024 20:15 EDT Heart Rate Monitored 66 bpm Respiratory Rate 17 br/min 10/16/2024 20:15 EDT Systolic Blood Pressure Non-Invasive 147 mmHg HI Diastolic Blood Pressure Non-Invasive 81 mmHg Mean Arterial Pressure (NBP) 103 mmHg 10/16/2024 18:15 EDT Heart Rate Monitored 63 bpm Respiratory Rate 12 br/min LOW 10/16/2024 18:15 EDT Systolic Blood Pressure Non-Invasive 124 mmHg Diastolic Blood Pressure Non-Invasive 71 mmHg Mean Arterial Pressure (NBP) 88 mmHg 10/16/2024 16:30 EDT Heart Rate Monitored 68 bpm Respiratory Rate 14 br/min 10/16/2024 16:30 EDT Systolic Blood Pressure Non-Invasive 125 mmHg Diastolic Blood Pressure Non-Invasive 73 mmHg Mean Arterial Pressure (NBP) 90 mmHg 10/16/2024 16:14 EDT Temperature Oral 36.4 DegC Peripheral Pulse Rate 68 bpm Respiratory Rate 16 br/min Systolic Blood Pressure Non-Invasive 126 mmHg Diastolic Blood Pressure Non-Invasive 93 mmHg HI Blood Pressure Method Automatic Blood Pressure Location Left arm Blood Pressure Cuff Size Large Vital Signs (last 24 hrs) Last Charted Temp Oral36.7 DegC (OCTOBER 17:12) Heart Rate [id number] bpm (OCTOBER 17 00:00) OSB962 mmHg (OCTOBER 17:12) DBP82 mmHg (OCTOBER 17:12) BMI44.92 (OCTOBER 17:29) Measurements from flowsheet : Measurements 10/17/2024 1:29 EDT Height 177.8 cm Height in inches 70 inch(es) Admission Weight 142 kg Weight Lbs 312.4 lb Oil Trough Body Weight 73.00 kg Type of Scale Used Bed scale BSA Admission 2.53 Body Mass Index 44.92 kg/m2 10/16/2024 16:14 EDT Admission Weight 146.9 kg Pain assessment: Pain Assessment 10/17/2024 5:50 EDT Primary Pain Intensity 1 Primary Pain Nonverbal Response Appears restful Pain Scale Type 0-10 Pain scale 10/17/2024 4:13 EDT Primary Pain Intensity 2 Primary Pain Nonverbal Response Appears restful Pain Scale Type 0-10 Pain scale 10/17/2024 1:40 EDT Pain Scale Assessment 0-10 Pain scale Primary Pain Location Other: right ankle Primary Pain Intensity 5 10/16/2024 23:53 EDT Primary Pain Intensity 7 10/16/2024 22:30 EDT Primary Pain Intensity 0 Pain Scale Type 0-10 Pain scale 10/16/2024 20:15 EDT Primary Pain Intensity 0 Pain Scale Type 0-10 Pain scale 10/16/2024 19:56 EDT Primary Pain Location Ankle Primary Pain Laterality Right Primary Pain Intensity 8 Pain Scale Type 0-10 Pain scale 10/16/2024 17:57 EDT Primary Pain Location Ankle Primary Pain Laterality Right Primary Pain Intensity 7 Primary Pain Quality Aching Pain Scale Type 0-10 Pain scale 10/16/2024 16:14 EDT Primary Pain Intensity 0 Pain Scale Type 0-10 Pain scale . General: Alert and oriented, No acute distress. Airway: Normal temporomandibular joint mobility, Nares patent. Mallampati classification: III (soft palate, base of uvula visible). Head: Normocephalic. Dentition Evaluation: Intact, Missing teeth, Chipped teeth. Neck: Supple. Respiratory: Lungs are clear to auscultation. Cardiovascular: Normal rate. Heart Sounds: Normal. Gastrointestinal: Soft. Musculoskeletal Normal range of motion. Integumentary: Intact, Warm, Dry. Neurologic: Alert, Oriented, Normal sensory. Review / Management Results review: Labs (Last four charted values) WBC 6.9(OCTOBER 16)6.5(OCTOBER 16) Hgb 14.8(OCTOBER 16)14.3(OCTOBER 16) Hct 45.2(OCTOBER 16)43.2(OCTOBER 16) Plt 172(OCTOBER 16)152(OCTOBER 16) Na 139(OCTOBER 16)140(OCTOBER 16) K 3.7(OCTOBER 16)3.6(OCTOBER 16) CO2 H 33(OCTOBER 16)32(OCTOBER 16) Cl 102(OCTOBER 16)103(OCTOBER 16) Cr 0.71(OCTOBER 16)0.69(OCTOBER 16) BUN 10.0(OCTOBER 16)11.0(OCTOBER 16) Glucose 109(OCTOBER 16)94(OCTOBER 16) Ca 9.0(OCTOBER 16)9.4(OCTOBER 16) PT 13.7(OCTOBER 17) INR 1.2(OCTOBER 17) , Lab results 10/17/2024 6:00 EDT insulin regular Not Done: Below Sliding Scale (Not Done) 10/17/2024 5:50 EDT Primary Pain Intensity 1 Primary Pain Nonverbal Response Appears restful Pain Scale Type 0-10 Pain scale Antecubital Right 10/16/2024 20 gauge Peripheral IV Activity: Assessed Peripheral IV Dressing Condition: Clean, Dry, Intact Peripheral IV Dressing Activity: Transparent dressing Peripheral IV Line Status/Patency: Continuous infusion Peripheral IV Site Condition: No complications Peripheral IV Equipment: IV Pump Positioning Repositioned left side, Repositions self Activity Status ADL Sleeping quietly with easy respirations Standard Safety ID band on, Call device within reach, Bed in low position, Wheels locked, Upper/Half-Length side-rails up, Phone within reach High Risk Safety Identified as high risk, Fall ID band on, Bed alert on, Door open, Room check performed, High risk door magnet present 10/17/2024 5:49 EDT Lactated Ringers Injection Begin Bag 1,000 mL mL 10/17/2024 5:47 EDT Blood Glucose, Capillary 97 mg/dL 10/17/2024 5:44 EDT Mechanical VTE Prophylaxis Education Not Done: Task Duplication (Not Done) Ed-Incentive Spirometry Not Done (Not Done) Sequential Compression Device Not Done: Task Duplication (Not Done) Sequential Compression Device Form Not Done (Not Done) 10/17/2024 4:13 EDT Primary Pain Intensity 2 Primary Pain Nonverbal Response Appears restful Pain Scale Type 0-10 Pain scale Antecubital Right 10/16/2024 20 gauge Peripheral IV Activity: Assessed Peripheral IV Dressing Condition: Clean, Dry, Intact Peripheral IV Dressing Activity: Transparent dressing Peripheral IV Line Status/Patency: Continuous infusion Peripheral IV Line Care: Secured with tape Peripheral IV Site Condition: No complications Peripheral IV Equipment: IV Pump Positioning Repositioned back Activity Status ADL Sleeps intermittently Standard Safety ID band on, Allergy Band on, Call device within reach, Bed in low position, Wheels locked, Upper/Half-Length side-rails up, Phone within reach High Risk Safety Identified as high risk, Fall ID band on, Bed alert on, Room check performed, Highrisk door magnet present 10/17/2024 4:05 EDT Allergies Yes Consent Form Signed Yes CHG Preoperative Wash/Wipe Day of procedure History & Physical On Chart Yes Obstructive Sleep Apnea Assess Completed Yes NPO Status Maintained, More than 8 hours Allergy Band on and Verified Yes Patient ID Band on and Verified Yes Blood Consent Signed Yes 10/17/2024 3:28 EDT Diagnosed With Sleep Apnea Yes 10/17/2024 2:52 EDT Ed-Incentive Spirometry Not Done (Not Done) 10/17/2024 2:46 EDT Protime 13.7 seconds PT International Ratio 1.2 ratio NA 10/17/2024 2:19 EDT Mechanical VTE Prophylaxis Education Not Done: Task Duplication (Not Done) Positioning Repositions self Sequential Compression Device Not Done: Task Duplication (Not Done) Nurse Safety Checks q2hrs Performed 3pm-3am Standard Safety ID band on, Call device within reach, Bed in low position High Risk Safety Room check performed ED Valuables and Belongings Form Not Done (Not Done) Sequential Compression Device Form Not Done (Not Done) 10/17/2024 2:18 EDT Skin Assessment Verification Admission 10/17/2024 2:17 EDT Hewitt Screen Admission History of Fall in Last 3 Months Hewitt Yes Presence of Secondary Diagnosis Hewitt Yes Use of Ambulatory Aid Hewitt Crutches, cane, walker IV/PRN Adapter Fall Risk Hewitt Yes Gait Weak or Impaired Fall Risk Hewitt Impaired Mental Status Fall Risk Hewitt Oriented to own ability Hewitt Fall Risk Score 95 HI 10/17/2024 2:08 EDT Violence Risk Confused No Violence Risk Irritable No Violence Risk Boisterous No Violence Risk Verbal Threats No Violence Risk Physical Threats No Violence Risk Attacking Objects No Violence Risk Predictor Score 0 Violence Risk Intervention None Violence Risk Current Interventions None 10/17/2024 2:07 EDT Antecubital Right 10/16/2024 20 gauge Peripheral IV Activity: Assessed Peripheral IV Dressing Condition: Clean, Dry Peripheral IV Dressing Activity: Transparent dressing Peripheral IV Line Status/Patency: Flushes easily Peripheral IV Site Condition: No complications Peripheral IV Equipment: PRN Adaptor 10/17/2024 1:45 EDT mupirocin topical Not Done: Other (Not Done) 10/17/2024 1:40 EDT Pain Scale Assessment 0-10 Pain scale Primary Pain Location Other: right ankle Primary Pain Intensity 5 Reason for PRN medication Pain management PRN medication effectiveness Partial Nail Bed Color Horse Pasture Capillary Refill < 2 seconds Dorsalis Pedis Pulse, Left 2+ Normal Radial Pulse, Left 2+ Normal Radial Pulse, Right 2+ Normal Respirations Unlabored Respiratory Pattern Regular All Lobes Breath Sounds Clear Abdomen Description Non-distended, Rounded Abdomen Palpation Non-Tender Passing Flatus Yes Bowel Sounds All Quadrants Present Skin Description Horse Past[place], Dry Skin Temperature Warm Skin Integrity Pressure points intact Skin Turgor Elastic All Extremity Description Horse Pasture, Normal for ethnicity Temperature All Extremities Warm Mucous Membrane Color [place] Pasture Mucous Membrane Description Moist Ankle Right Incision, Wound Dressing/Activity: Assessed Incision, Wound Dressing: Elastic wrap bandage Wound Associated Pain: With activity, mobilization Buttock Inferior, Inner Skin Abnormality Type: Non-pressure ulcer Skin Abnormality Color: Horse Pasture, Red Incision, Wound Surrounding Tissue: Normal skin tone Incision, Wound Dressing/Activity: Open to Air Wound Associated Pain: None Neurological Language Able to speak clearly Neurological Symptoms Patient denies Gait Unable to assess Extremity Movement Unequal Swallowing Difficulty None Characteristics of Communication Appropriate Characteristics of Speech Clear Level of Consciousness Alert CLARA Yes Left Pupil Reaction Brisk Right Pupil Reaction Brisk Pupil Size, Left 3 mm Pupil Size, Right 3 mm Left Upper Extremity Strength Strong Right Upper Extremity Strength Strong Left Lower Extremity Strength Moderate Right Lower Extremity Strength Weak Tone All Extremities Normal Sensation All Extremities Intact Affect/Behavior Appropriate, Cooperative Orientation Oriented x 4 Appetite Good Eating Difficulties None PRN Medication Effectiveness Evaluation PRN Medication Effectiveness Evaluation 10/17/2024 1:29 EDT Designated Person #1 We May Share PHI MARILYN OSPINA [phone] Designated Person #1 Relationship Sibling Designated Person #2 We May Share PHI Designated Person #2 We May Share PHI Privacy Restrictions Requested None Height 177.8 cm Height in inches 70 inch(es) Admission Weight 142 kg Weight Lbs 312.4 lb Oil Trough Body Weight 73.00 kg Type of Scale Used Bed scale BSA Admission 2.53 Body Mass Index 44.92 kg/m2 Patient Type Inpatient Thrombosis Risk Factors (1) Age 41-60 years Thrombosis Risk Factor Add'l Assessment (1) Surgery (Anesthesia equal to or less than 60 minutes) Thrombosis Risk Score 2 Status N/A Thoughts of Harming Others - History No Thoughts of Suicide - History No Hospital Clergy to Visit Requests Visit from Spiritual Care Staff Sensory Deficits None Advanced Directives No - refuses information Infectious Disease Symptoms Other: pain Infectious Disease Recent Exposure No Alcohol and Drug Use No Employee of Institutional Living No Health Care Employee No History of Exposure to TB No History of Positive Chest X-Ray for TB No History of Positive TB Skin Test No Homeless No Known Immunosuppression No Recent Immigrant No Resident of Institutional Living No Bloody Sputum No Fatigue No Fever No Loss of Appetite No Night Sweats No Persistent Cough > 3 Weeks No Weight Loss No Individuals Taught Patient Learning Readiness Willing to learn Barriers to Learning None evident Teaching Method Explanation Preferred Spoken Language Barbadian Preferred Written Language Barbadian Disease Process General Education Signs/Symptoms to report, Signs/Symptoms of complications Environment/Rights Education Room Layout, Unit procedures Equipment Education Lines/Tubes/Drains Teaching Evaluation Needs further teaching, Needs reinforcement Safety Brochure Information Reviewed Yes Larry Kauffman Video Viewed Patient refused Patient's Current Physicians Patient's Current Physicians Belongings At Bedside Cell phone, Other: one shoe, orthopedic boot Personal Home Medications Received No home medications were brought in Belongings Sent Home None Belongings to Security/Secured in Dept None Discharge To, Anticipated Skilled facility Prev Test Positive/Diagnosis w/COVID-19 Yes Previous COVID-19 Positive 2019 Current Quarantine/Isolated any Illness No Any Contact with Sick Animals/Birds No Traveled Anywhere in Last 30 Days No Lost Weight Unintentionally Recently No Eat Poorly Due to Decreased Appetite No Total MST Score 0 N/A Personal Devices, Patient Valuables None Admission Note-Nursing Patient History 10/17/2024 1:12 EDT Temperature Oral 36.7 DegC Peripheral Pulse Rate 76 bpm Respiratory Rate 18 br/min Systolic Blood Pressure Non-Invasive 137 mmHg Diastolic Blood Pressure Non-Invasive 82 mmHg Blood Pressure Method Automatic Blood Pressure Location Left arm Blood Pressure Cuff Size Medium Reason For Taking VItal Signs Routine Oxygen Therapy Room air Oxygen Saturation 94 % Positioning Repositions self, Encouraged/reinforced importance of turning Standard Safety Safety level maintained High Risk Safety Room check performed 10/17/2024 0:00 EDT Heart Rate Monitored 80 bpm Respiratory Rate 18 br/min Oxygen Saturation 94 % 10/17/2024 0:00 EDT Systolic Blood Pressure Non-Invasive 106 mmHg Diastolic Blood Pressure Non-Invasive 52 mmHg LOW Oxygen Therapy Room air 10/16/2024 23:53 EDT Primary Pain Intensity 7 acetaminophen-oxycodone 2 tab(s) tab(s) 10/16/2024 23:45 EDT Heart Rate Monitored 80 bpm Respiratory Rate 22 br/min HI Oxygen Saturation 91 % LOW 10/16/2024 23:45 EDT Systolic Blood Pressure Non-Invasive 124 mmHg Diastolic Blood Pressure Non-Invasive 68 mmHg Mean Arterial Pressure (NBP) 86 mmHg Reason For Taking VItal Signs Pain assessment 10/16/2024 23:00 EDT Oral Intake 0 mL Stool Count 0 EA Urine Voided 150 mL Urine Voided 0 mL 10/16/2024 22:39 EDT insulin regular Not Done: Below Sliding Scale (Not Done) 10/16/2024 22:34 EDT Hospitalist Consultation Note Consult Note 10/16/2024 22:30 EDT Heart Rate Monitored 78 bpm Respiratory Rate 17 br/min Oxygen Saturation 97 % 10/16/2024 22:30 EDT Blood Glucose, Capillary 109 mg/dL Systolic Blood Pressure Non-Invasive 133 mmHg Diastolic Blood Pressure Non-Invasive 73 mmHg Mean Arterial Pressure (NBP) 85 mmHg Primary Pain Intensity 0 Pain Scale Type 0-10 Pain scale Oxygen Therapy Room air Positioning Repositions self Standard Safety Safety level maintained High Risk Safety Room check performed 10/16/2024 22:24 EDT Electrocardiogram - EKG - CV Completed (In Progress) 10/16/2024 22:15 EDT Lactated Ringers Injection Begin Bag 1,000 mL mL 10/16/2024 22:14 EDT WBC 6.9 10^3/mcL RBC 5.14 10^6/mcL Hgb 14.8 G/dL Hct 45.2 % MCV 87.8 fL MCH 28.8 pg MCHC 32.8 G/dL RDW 16.5 % HI Platelet 172 10^3/mcL MPV 7.9 fL Monocyte Distribution Width 19.45 Neutrophil % 67.5 % Lymphocyte % 19.8 % LOW Monocyte % 10.7 % Eosinophil % 1.2 % Basophil % 0.8 % Neutrophil, Absolute 4.7 10^3/mcL Lymphocyte, Absolute 1.4 10^3/mcL Monocyte, Absolute 0.7 10^3/mcL Eosinophil, Absolute 0.1 10^3/mcL Basophil, Absolute 0.1 10^3/mcL 10/16/2024 22:08 EDT Glucose Level 109 mg/dL Sodium Level 139 mEq/L Potassium Level 3.7 mEq/L Chloride 102 mEq/L CO2 33 mEq/L HI Electrolyte Balance 4.0 mEq/L BUN 10.0 mg/dL Creatinine Lvl (s) 0.71 mg/dL Estimated Glomerular Filtration Rate 110 ml/min/1.73sqm NA BUN/Creatinine Ratio 14.1 ratio Calcium Lvl 9.0 mg/dL Total Protein 7.1 G/dL Albumin Level 3.6 G/dL Globulin 3.5 G/dL A/G Ratio 1.0 ratio Bili Total 0.60 mg/dL Alk Phos 70 U/L AST/SGOT 17 U/L ALT/SGPT 12 U/L ABO/Rh Interp O POS ABSC Interp (Gel) Negative ABSC 10/16/2024 22:07 EDT XR Ankle Minimum 3 Views Left XR ANKLE MINIMUM 3 VIEWS LEFT 10/16/2024 21:37 EDT History and Physical Ortho History and Physical 10/16/2024 21:30 EDT Antecubital Right 10/16/2024 20 gauge Peripheral IV Activity: Assessed Peripheral IV Dressing Condition: Clean, Dry, Intact Peripheral IV Line Status/Patency: Flushes easily, Good blood return Peripheral IV Site Condition: No complications Peripheral IV Equipment: PRN Adaptor 10/16/2024 20:42 EDT XR Ankle Minimum 3 Views Right XR ANKLE MINIMUM 3 VIEWS RIGHT 10/16/2024 20:15 EDT Heart Rate Monitored 66 bpm Respiratory Rate 17 br/min Oxygen Saturation 100 % 10/16/2024 20:15 EDT Systolic Blood Pressure Non-Invasive 147 mmHg HI Diastolic Blood Pressure Non-Invasive 81 mmHg Mean Arterial Pressure (NBP) 103 mmHg Primary Pain Intensity 0 Pain Scale Type 0-10 Pain scale Oxygen Therapy Room air 10/16/2024 19:56 EDT Primary Pain Location Ankle Primary Pain Laterality Right Primary Pain Intensity 8 Pain Scale Type 0-10 Pain scale HYDROmorphone 0.5 mg mg 10/16/2024 19:09 EDT XR Ankle Minimum 3 Views Right XR ANKLE MINIMUM 3 VIEWS RIGHT 10/16/2024 18:50 EDT WBC 6.5 10^3/mcL RBC 4.94 10^6/mcL Hgb 14.3 G/dL Hct 43.2 % MCV 87.4 fL MCH 28.9 pg MCHC 33.0 G/dL RDW 17.1 % HI Platelet 152 10^3/mcL MPV 7.7 fL Monocyte Distribution Width 17.52 Neutrophil % 72.6 % Lymphocyte % 17.2 % LOW Monocyte % 8.7 % Eosinophil % 0.8 % Basophil % 0.7 % Neutrophil, Absolute 4.7 10^3/mcL Lymphocyte, Absolute 1.1 10^3/mcL Monocyte, Absolute 0.6 10^3/mcL Eosinophil, Absolute 0.1 10^3/mcL Basophil, Absolute 0.0 10^3/mcL Glucose Level 94 mg/dL Sodium Level 140 mEq/L Potassium Level 3.6 mEq/L Chloride 103 mEq/L CO2 32 mEq/L Electrolyte Balance 5.0 mEq/L BUN 11.0 mg/dL Creatinine Lvl (s) 0.69 mg/dL Estimated Glomerular Filtration Rate 111 ml/min/1.73sqm NA BUN/Creatinine Ratio 15.9 ratio Calcium Lvl 9.4 mg/dL Ethanol Level <10.0 mg/dL NA 10/16/2024 18:15 EDT Heart Rate Monitored 63 bpm Respiratory Rate 12 br/min LOW Oxygen Saturation 94 % 10/16/2024 18:15 EDT Systolic Blood Pressure Non-Invasive 124 mmHg Diastolic Blood Pressure Non-Invasive 71 mmHg Mean Arterial Pressure (NBP) 88 mmHg Oxygen Therapy Room air Positioning Repositions self Standard Safety Safety level maintained High Risk Safety Room check performed 10/16/2024 18:14 EDT ED Note-Physician ED/Urgent Care Provider Note 10/16/2024 17:57 EDT Primary Pain Location Ankle Primary Pain Laterality Right Primary Pain Intensity 7 Primary Pain Quality Aching Pain Scale Type 0-10 Pain scale HYDROmorphone 0.5 mg mg ondansetron 4 mg mg 10/16/2024 17:43 EDT XR Ankle Minimum 3 Views Right XR ANKLE MINIMUM 3 VIEWS RIGHT 10/16/2024 17:09 EDT Antecubital Right 10/16/2024 20 gauge Peripheral IV Activity: Field start Peripheral IV Dressing Condition: Clean, Dry, Intact Peripheral IV Line Status/Patency: Flushes easily, Good blood return Peripheral IV Site Condition: No complications Peripheral IV Equipment: PRN Adaptor 10/16/2024 16:30 EDT Heart Rate Monitored 68 bpm Respiratory Rate 14 br/min Oxygen Saturation 94 % 10/16/2024 16:30 EDT Systolic Blood Pressure Non-Invasive 125 mmHg Diastolic Blood Pressure Non-Invasive 73 mmHg Mean Arterial Pressure (NBP) 90 mmHg 10/16/2024 16:28 EDT Status N/A Hewitt Screen ED/[employer] patient History of Fall in Last 3 Months Hewitt Yes History of Fall in Last 3 Months Hewitt Yes Presence of Secondary Diagnosis Hewitt Yes Use of Ambulatory Aid Hewitt Crutches, cane, walker IV/PRN Adapter Fall Risk Hewitt Yes Gait Weak or Impaired Fall Risk Hewitt Impaired Mental Status Fall Risk Hewitt Oriented to own ability Hewitt Fall Risk Score 95 HI Thoughts of Harming Others - History No Thoughts of Suicide - History No Domestic Concerns Denies HT Control,Supervise,Monitor Denies Advanced Directives No - refuses information Individuals Taught Patient Learning Readiness Willing to learn Barriers to Learning None evident Teaching Method Explanation Teaching Evaluation Needs further teaching, Needs reinforcement Chief Complaint Pt here from [facility] via squad after a mechanical fall causing a fractureto his right ankle. They splinted it in their ED and sent to [facility] for surgical consult. Place Where Injury/Illness Occurred Other: [facility] Anticoagulants Taken In Past 6 Wks. No N/A Anesthesia/Transfusions Prior anesthesia ED Assessment Note - Nursing ED Patient History Form 10/16/2024 16:14 EDT Admission Weight 146.9 kg Temperature Oral 36.4 DegC Peripheral Pulse Rate 68 bpm Respiratory Rate 16 br/min Systolic Blood Pressure Non-Invasive 126 mmHg Diastolic Blood Pressure Non-Invasive 93 mmHg HI Blood Pressure Method Automatic Blood Pressure Location Left arm Blood Pressure Cuff Size Large Primary Pain Intensity 0 Pain Scale Type 0-10 Pain scale Cardiac Rhythm Sinus rhythm Monitoring Lead V5/MCL5 Alarms On and Functional Yes Heart Rate Alarm Set At - Low 50 Heart Rate Alarm Set At - High 120 Respirations Unlabored Respiratory Pattern Regular Oxygen Therapy Room air Oxygen Saturation 95 % Abdomen Description Non-distended, Symmetric Abdomen Palpation Non-Tender Skin Description Horse Pasture, Normal for ethnicity, Dry Skin Temperature Warm Mucous Membrane Color Horse Pasture Mucous Membrane Description Moist Neurological Symptoms Patient denies Level of Consciousness Alert Eye Opening Response Luis Felipe Spontaneously Best Motor Response Chardon Obeys simple commands Best Verbal Response Luis Felipe Oriented [place] Coma Score 15 CLARA Yes Left Upper Extremity Strength Strong Right Upper Extremity Strength Strong Left Lower Extremity Strength Moderate Right Lower Extremity Strength Weak Tone All Extremities Normal Sensation All Extremities Intact Violence Risk Confused No Violence Risk Irritable No Violence Risk Boisterous No Violence Risk Verbal Threats No Violence Risk Physical Threats No Violence Risk Attacking Objects No Violence Risk Predictor Score 0 Violence Risk Intervention None Violence Risk Current Interventions None Affect/Behavior Appropriate, Calm, Cooperative Appearance Clean Orientation Oriented x 4 Wish To Be No Suicidal Thoughts No Ever Made Plans to End Your Life No Suicide Severity Rating No problems noted Infectious Disease Symptoms Patient states no symptoms Infectious Disease Recent Exposure No Alcohol and Drug Use No Employee of Institutional Living No Health Care Employee No History of Exposure to TB No History of Positive Chest X-Ray for TB No History of Positive TB Skin Test No Homeless No Known Immunosuppression No Recent Immigrant No Resident of Institutional Living No Bloody Sputum No Fatigue No Fever No Loss of Appetite No Night Sweats No Persistent Cough > 3 Weeks No Weight Loss No Preferred Spoken Language Barbadian Preferred Written Language Barbadian Tracking Group ED Tracking Group Tracking Acuity 3 ED Diabetic Patient No Mode of Transfer [facility] Positioning Repositions self Standard Safety ID band on, Allergy Band on, Call device within reach, Bed in low position, Wheels locked, Upper/Half-Length side-rails up, Phone within reach, personal items within reach, Safety level maintained High Risk Safety Identified as high risk, Fall ID band on, Room check performed, High risk door magnet present Prev Test Positive/Diagnosis w/COVID-19 No Current Quarantine/Isolated any Illness No Any Contact with Sick Animals/Birds No Traveled Anywhere in Last 30 Days No ED Triage Adults ED Triage Adults . Assessment and Plan [place] [employer] (ASA) physical status classification: Class IV. Anesthetic Preoperative Plan Premedication: intravenous. Anesthetic technique: General. Induction: intravenously. Maintenance airway: Oral endotracheal tube. Postoperative pain management: Per surgeon. Risks discussed: nausea, vomiting, headache, sore throat, dental injury, hypotension, allergic reaction, serious complications. Informed consent: signed by patient. Notes: ASA IV: Ongoing Asthma exacerbation Atopic dermatitis Atypical chest pain BMI 45.0-49.9, adult Bronchitis Cardiomyopathy Chewing tobacco nicotine dependence COPD exacerbation Cough Dental abscess Depression Dyspnea Generalized anxiety disorder Hypertension associated with type 2 diabetes mellitus Insomnia LVH (left ventricular hypertrophy) Moderate asthma Morbid obesity Near syncope KOFFI (obstructive sleep apnea) Paroxysmal atrial fibrillation Right knee pain Screening for colon cancer Screening for ischemic heart disease Statin intolerance Type 2 diabetes mellitus with hemoglobin A1c goal of less than 7.0% Type 2 diabetes mellitus with hyperlipidemia Historical Anxiety Diabetes [facility] Hyperlipidemia Hypertension Mass of arm Obstructive sleep apnea Prediabetes Right flank pain . Digitally Signed by MELISSA MARIN MD on 10/17/2024 06:21 AM Digitally Signed by DELORES BRAVO on 10/17/2024 07:17 AM [id number] Note Date of Service October 16, 2024 Reason for Consultation Medical management, surgical clearance Referring Physician Orthopedics History of Present Illness This is a 54-year-old male with a past medical history consistent with T2DM not on insulin, hypertension, COPD, HFpEF, last EF 55% on echo this last month, generalized anxiety disorder presents with a chief complaint of mechanical fall and subsequent ankle pain. The patient states that he did not have any lightheadedness or palpitations, chest pain before the fall, slipped on a piece of siding and twisted his ankle. Images in the ED revealed evidence of a closed displaced bimalleolar fracture of the right ankle. CBC and CMP were without significant derangement. EKG demonstrating normal sinus rhythm. Plans for operative intervention per orthopedics. On exam, patient denies any new or acute complaints. Vital signs are stable at the time of evaluation. Does have a history of a left ankle fracture as well. Review of Systems Complete detailed review of systems obtained and all pertinent positives and negatives are noted inthe history of present illness. Physical Exam Vitals and Measurements T: 36.4 C (Oral) HR: 78 (Monitored) RR: 17 BP: 133/73 SpO2: 97% WT: 146.9 kg Weight Dosing Weight: 146.9 kg (10/16/24) Physical Examination General: No apparent distress. Alert and appropriate. HEENT: NCAT EOMI Neck: Supple. No appreciable elevation in JVP. Cardiovascular: S1 S2 normal. No extra-audible heart tones. Respiratory: Bilaterally clear breath sounds with no crepitation or wheeze. Abdominal: Soft, nontender and nonrigid. No guarding. Bowel sounds present. Extremities: Right ankle TTP, no edema. Adequate peripheral circulation. Neurological: Grossly intact without focal deficit. Cerebellar function preserved. Skin: Bilateral lower extremities are wrapped,, left is in a boot Lab Results 10/16 18:50 WBC: 6.5 Hgb: 14.3 Hct: 43.2 Platelet: 152 Neutrophil %: 72.6 Glucose Level: 94 Sodium Level: 140 Potassium Level: 3.6 BUN: 11.0 Creatinine Lvl (s): 0.69 Imaging Results and Diagnostics IMPRESSION: X-ray ankle right, personally reviewed Fracture subluxation of the ankle. Possible nondisplaced fracture inferior aspect of cuboid bone. Fracture fragments at medial aspect of talus inferior to medial malleolus with unclear origin. EKG NSR, personally reviewed Assessment/Plan Closed displaced bimalleolar fracture of right ankle Preoperative clearance HFpEF T2DM COPD Hypertension DUDLEY The patient is medically optimized and cleared to proceed for operative intervention on close displaced bimalleolar fracture of the right ankle. Patient represents a low risk RCRI. Will continue to follow for patient's chronic issues including HFpEF that is not in exacerbation, COPD which is not exacerbation, hypertension which is currently controlled. T2DM, hospital goal is 140-180. Patient is not on insulin. Will order insulin regular n.p.o. sliding scale as patient is n.p.o. for operative intervention. The labs were personally reviewed, will continue to follow, appreciate consultation. Problem List/Past Medical History Ongoing Asthma exacerbation Atopic dermatitis Atypical chest pain Bronchitis Cardiomyopathy Chewing tobacco nicotine dependence CHF with cardiomyopathy COPD exacerbation Cough Dental abscess Depression Dyspnea Generalized anxiety disorder Hypertension associated with type 2 diabetes mellitus Insomnia LVH (left ventricular hypertrophy) Moderate asthma Morbid obesity with BMI of 40.0-44.9, adult Near syncope KOFFI (obstructive sleep apnea) Paroxysmal atrial fibrillation Right knee pain Screening for colon cancer Screening for ischemic heart disease Statin intolerance Tachyarrhythmia Type 2 diabetes mellitus with hemoglobin A1c goal of less than 7.0% Type 2 diabetes mellitus with hyperlipidemia Historical Anxiety BMI 45.0-49.9, adult Diabetes mellitus Hyperlipidemia Hypertension Mass of arm Morbid obesity Obstructive sleep apnea Prediabetes Right flank pain Procedure/Surgical History Excision: 03/25/24 Echocardiogram: 01/31/24 Cardioversion: 12/23/22 Echocardiogram: 11/11/22 Elbow Medications Inpatient Benadryl, 25 mg= 1 tab(s), Oral, qHS, PRN Colace, 100 mg= 1 cap(s), Oral, BID, PRN Dextrose 50% IV Push, 25 gram(s)= 50 mL, IV Push, AsDirected, PRN LR 1,000 mL, 1000 mL, Intravenous Miralax Powder Packet, 17 gram(s)= 15 mL, Oral, qDay, PRN morphine, 4 mg= 1 mL, IV Push, q3h, PRN Percocet 325/5, 1 tab(s), Oral, q4h, PRN Percocet 325/5, 2 tab(s), Oral, q4h, PRN Tylenol, 650 mg= 2 tab(s), Oral, q4h, PRN Zofran, 4 mg= 2 mL, IV Push, q4h, PRN Home albuterol 2.5 mg/3 mL (0.083%) inhalation solution, 2.5 mg= 3 mL, Inhalation, q6h allopurinol 100 mg oral tablet, 100 mg= 1 tab(s), Oral, qDay, 3 refills cetirizine 10 mg oral tablet, 10 mg= 1 tab(s), Oral, Daily, 3 refills DULoxetine 20 mg oral delayed release capsule, 20 mg= 1 cap(s), Oral, qDay furosemide 20 mg oral tablet, 20 mg= 1 tab(s), Oral, Daily Nexletol 180 mg oral tablet, 180 mg= 1 tab(s), Oral, qDay, 5 refills omeprazole 40 mg oral delayed release capsule, 40 mg= 1 cap(s), Oral, BID Potassium Chloride (Eqv-K-Tab) 10 mEq oral tablet, extended release, 10 mEq= 1 tab(s), Oral, qDay, 3 refills Potassium Chloride (Eqv-K-Tab) 20 mEq oral tablet, extended release, 20 mEq= 1 tab(s), Oral, qDay, 3 refills pravastatin 40 mg oral tablet, 40 mg= 1 tab(s), Oral, qDay spironolactone 25 mg oral tablet, 25 mg= 1 tab(s), Oral, qDay, 3 refills Symbicort 80 mcg-4.5 mcg/inh Inhaler, 2 puff(s), Inhalation, BID, 3 refills Tikosyn 250 mcg oral capsule, 250 mcg= 1 cap(s), Oral, BID, 4 refills tiZANidine 2 mg oral tablet, 2 mg= 1 tab(s), Oral, q8h, PRN, 3 refills Toprol-XL 100 mg oral tablet, extended release, 100 mg= 1 tab(s), Oral, BID traZODone 100 mg oral tablet, 100 mg= 1 tab(s), Oral, qHS, 3 refills Trulicity Pen 1.5 mg/0.5 mL subcutaneous solution, 1.5 mg, Subcutaneous, qWeek, 3 refills Tylenol, Oral, PRN Vistaril 25 mg oral capsule, 25 mg= 1 cap(s), Oral, QID, PRN, 3 refills, On hold per physician Xarelto 20 mg oral tablet, 20 mg= 1 tab(s), Oral, qHS, 11 refills Allergies Statins myalgia Social History Alcohol Use: Past., 07/11/2022 Nutrition/Health Caffeine intake amount: pop 3 daily., 11/08/2022 Substance Abuse Use: Never., 07/11/2022 Tobacco Nicotine Use: Former smoker, quit more than 30 days ago, former chewer of tobacco. Type: Oral (Snuff, Chew). Smokeless Tobacco Use: Former smokeless tobacco user, quit more than 30 days ago, stopped snuff October 2022., 01/12/2024 Nicotine Use: Former smoker, quit more than 30 days ago., 07/11/2022 Family History Cancer: Father. Heart disease: Mother and Grandparent. Stroke: Father. Health Status Family Member(s) Immunizations pneumococcal 13-valent conjugate vaccine: 0.5 unknown unit (04/12/22) SARS-CoV-2 (COVID-19) mRNA-1273 vaccine: 0 unknown unit (09/11/20) SARS-CoV-2 (COVID-19) mRNA-1270 vaccine: 0 unknown unit (08/14/20) Digitally Signed by KARLENE BARCENAS DO on 10/16/2024 10:38 PM [facility] [id number] Note* Exam Date Time Procedure Performing Provider Status 10/16/24 10:24 PM Electrocardiogram - EKG - CV SA SULY PAULINO MD; Auth (Verified) ECG Final Report SINUS RHYTHM LEFT ANTERIOR FASCICULAR BLOCK LOW VOLTAGE, PRECORDIAL LEADS Electronic Signature: ALIZA PAULINO MD 10/17/2024 18:58:09 [facility] [id number] Note* Exam Date Time Procedure Performing Provider Status 10/16/24 10:07 PM XR Ankle Minimum 3 Views Left TRACE ROUSE MD; Auth (Verified) [id number] ORIGINAL EXAMINATION: THREE XRAY VIEWS OF THE LEFT ANKLE10/16/2024 10:07 pm COMPARISON: X-ray left ankle 08/29/2024 HISTORY: ORDERING SYSTEM PROVIDED HISTORY: Reason for Exam: ankle fracture 7 weeks ago, FINDINGS: No significant change in alignment left distal fibular fracture extending to tibiofibular syndesmosis. No significant reparative change seen. Tibiotalar joint is maintained. Fragmented ossicles at tip of medial and lateral malleolus suggesting remote injury. Soft tissue swelling. IMPRESSION: No significant change in alignment and no significant reparative changes seen at left distal fibular fracture. I have personally reviewed the images of this examination and agree with the resident's findings and interpretation. Interpreted by: Trace Fierro Preliminary Report By: Jordon Levin Electronically signed By Trace Fierro Dictated Date: 10/16/2024 10:21:21 PM Prelim Date: 10/16/2024 10:25:23 PM Sign Date: 10/16/2024 10:39:42 PM Ordering Provider: RIC ARELLANO [facility] [id number] History and physical note Date of Service 10/16/2024 Chief Complaint Pt here from [facility] via squad after a mechanical fall causing a fracture to his right ankle. They splinted it in their ED and sent to [place] for surgical consult. History of Present Illness Patient is a 54-year-old male who [facility] emergency department as a transfer from [facility] for his right ankle fracture. Patient reports that he was helping his friend move when he slipped on a piece of siding and twisted his right ankle. Of note he previously broke his left ankle in early August for which she is being treated nonoperatively, weightbearing as tolerated in a walking boot. He does have a history of A-fib for which she is on Xarelto, last dose today. He has a history of congestive heart failure, he is a diabetic on Trulicity and he does not smoke butdoes chew tobacco. He denies any other orthopedic complaints besides his right ankle, he denies anynumbness tingling distally in his right lower extremity. Review of Systems REVIEW OF SYSTEMS: No fever, no chills, no weight change. HEENT: No sore throat, earache, or congestion. No neck pain. Heart: No chest pain. No palpitations. Lungs: No shortness of breath or cough. GI: No nausea, no vomiting, no diarrhea, no constipation, no anorexia. : No dysuria, frequency or urgency. No hematuria. Musculoskeletal: see above Skin: No rash or itching. Psychiatric: No anxiety, no depression. Endocrine: No polyuria or polydipsia. Physical Exam Vitals and Measurements T: 36.4 C (Oral) HR: 66 (Monitored) RR: 17 BP: 147/81 SpO2: 100% WT: 146.9 kg Weight Dosing Weight: 146.9 kg (10/16/24) General: NAD, A&Ox3 HEENT: normocephalic, atraumatic, EOMI intact CV: pulses regular throughout, brisk cap refill throughout, Pulm: normal work of breathing, equal chest rise bilaterally, no intercostal retractions or conversational dyspnea GI: abdomen is soft, nontender, nondistended, no rigidity or guarding Psych: calm and cooperative Right lower extremity: Skin is intact with significant swelling and ecchymosis about the ankle. There are multiple fracture blisters over the anterior medial and lateral aspects of his right ankle. EHL/FHL intact Sensation intact to light touch L4-S1 Brisk capillary refill to toes Lab Results 10/16 18:50 WBC: 6.5 Hgb: 14.3 Hct: 43.2 Platelet: 152 Neutrophil %: 72.6 Glucose Level: 94 Sodium Level: 140 Potassium Level: 3.6 BUN: 11.0 Creatinine Lvl (s): 0.69 Imaging Results and Diagnostics XR Ankle Minimum 3 Views Right Result Date: October 16, 2024 Verified By: TRACE FIERRO MD CLINICAL STATEMENT: IMPRESSION: No significant change in alignment post reduction. I have personally reviewed the images of this examination and agree with theresident's findings and interpretation. XR Ankle Minimum 3 Views Right Result Date: October 16, 2024 Verified By: TRACE FIERRO MD CLINICAL STATEMENT: IMPRESSION: No significant change in alignment post reduction. I have personally reviewed the images of this examination and agree with theresident's findings and interpretation. XR Ankle Minimum 3 Views Right Result Date: October 16, 2024 Verified By: TRACE FIERRO MD CLINICAL STATEMENT: IMPRESSION: Fracture subluxation of the ankle. Possible nondisplaced fracture inferior aspect of cuboid bone. Fracturefragments at medial aspect of talus inferior to medial malleolus with unclearorigin. I have personally reviewed the images of this examination and agree with theresident's findings and interpretation. Assessment/Plan Closed displaced bimalleolar fracture of right ankle - 54-year-old male presents after mechanical ground-level fall this was a closed, isolated injury. Patient is NV intact. -I explained to the patient the need for surgical intervention to prevent major morbidity mortalitywith nonoperative treatment. Patient voiced understanding and was agreeable to proceed. -Will obtain informed consent and plan for right ankle spanning external fixator with Dr. Quintana on 10/16/2024. -Patient placed in a AO splint -Hold any chemical DVT prophylaxis at this time - will order SCDs -Pain control -Percocet/morphine -Bedrest, NWB right lower extremity -N.p.o. at midnight - Ancef on-call to the OR -We will order type and screen preoperatively. Patient's current hemoglobin 14.3, platelets 152 -Awaiting medical optimization -Plan discussed with Dr. Quintana Orders: acetaminophen(Tylenol), 650 mg= 2 tab(s), Oral, q4h, PRN acetaminophen-oxyCODONE(Percocet 325/5), 2 tab(s), Oral, q4h, PRN acetaminophen-oxyCODONE(Percocet 325/5), 1 tab(s), Oral, q4h, PRN diphenhydrAMINE(Benadryl), 25 mg= 1 tab(s), Oral, qHS, PRN docusate(Colace), 100 mg= 1 cap(s), Oral, BID, PRN glucose(Dextrose 50% IV Push), 25 gram(s)= 50 mL, IV Push, AsDirected, PRN Lactated Ringers Infusion 1000 mL(LR 1000 mL), 1000 mL, Intravenous morphine, 4 mg= 1 mL, IV Push, q3h, PRN ondansetron(Zofran), 4 mg= 2 mL, IV Push, q4h, PRN polyethylene glycol 3350(Miralax Powder Packet), 17 gram(s)= 15 mL, Oral, qDay, PRN Basic Metabolic Panel(BMP), 10/16/24 21:21:00 EDT, Timed Study (collect at specified time), Blood, q24h, for 5 day(s), Preferred Lab: [facility], Stop date 10/20/24 22:00:00 EDT Bedrest, 10/16/24 21:21:00 EDT, Strict, continuous, Constant order Blood Glucose Call Parameter, 10/16/24 21:21:00 EDT, If patient is NPO for x-ray or surgery and hypoglycemic, call physician for further orders, 10/16/24 21:21:00 EDT Blood Glucose Call Parameter, 10/16/24 21:21:00 EDT, call provider if patient's blood glucose is <70mg/dL, 10/16/24 21:21:00 EDT Blood Glucose Monitoring Bedside PRN, 10/16/24 21:21:00 EDT, PRN Order, For signs/symptoms of hypoglycemia Communication Order (continuous), 10/16/24 21:21:00 EDT, Stat EKG will be obtained in the setting of new, ongoing or worsening chest discomfort/acute coronary syndrome symptoms in all nursing units and/or rhythm change in all monitored units., 10/16/24 21:21:00 EDT Complete Blood Count(CBC), 10/16/24 21:21:00 EDT, Timed Study (collect at specified time), Blood, q24h, for 5 day(s), Preferred Lab: [facility], Stop date 10/20/24 22:00:00 EDT Complete Metabolic Panel(CMP), 10/16/24 21:21:00 EDT, URGENT (collect within 2 hrs), Blood, Once, Nurse Collect, Preferred Lab: [facility], Stop date 10/16/24 21:37:00 EDT Consult to Physician, 10/16/24 21:21:00 EDT, HOSPITALISTLARRY (For Consultation Assignment OnlyNO other Orders), Routine, medical clearance, follow medically Diet Order, 10/16/24 21:21:00 EDT, Start Meal: Next meal, Regular, Constant Order, : N/A, : N/A Electrocardiogram(EKG), 10/16/24 21:21:00 EDT, Complete by Nursing Incentive Spirometer, 10/16/24 21:21:00 EDT, [id number] Intake and Output, 10/16/24 21:21:00 EDT, q8h (2p, 10p, 6a) IV Catheter Insertion/Care(Peripheral IV Insertion/Care), 10/16/24 21:21:00 EDT, IV Care: Once, 18 gauge angiocath, if possible Pulse Oximeter - Intermittent, 10/16/24 21:21:00 EDT, AsDirected, PRN order, On admission and as indicated Type and Screen, 10/16/24 21:21:00 EDT, URGENT (collect within 2 hrs), Blood, Once, Nurse Collect, Preferred Lab: [facility], Stop date 10/16/24 21:21:00 EDT Vital Signs, 10/16/24 21:21:00 EDT, q8h Problem List/Past Medical History Ongoing Asthma exacerbation Atopic dermatitis Atypical chest pain Bronchitis Cardiomyopathy Chewing tobacco nicotine dependence CHF with cardiomyopathy COPD exacerbation Cough Dental abscess Depression Dyspnea Generalized anxiety disorder Hypertension associated with type 2 diabetes mellitus Insomnia LVH (left ventricular hypertrophy) Moderate asthma Morbid obesity with BMI of 40.0-44.9, adult Near syncope KOFFI (obstructive sleep apnea) Paroxysmal atrial fibrillation Right knee pain Screening for colon cancer Screening for ischemic heart disease Statin intolerance Tachyarrhythmia Type 2 diabetes mellitus with hemoglobin A1c goal of less than 7.0% Type 2 diabetes mellitus with hyperlipidemia Historical Anxiety BMI 45.0-49.9, adult Diabetes mellitus Hyperlipidemia Hypertension Mass of arm Morbid obesity Obstructive sleep apnea Prediabetes Right flank pain Procedure/Surgical History Excision: 03/25/24 Echocardiogram: 01/31/24 Cardioversion: 12/23/22 Echocardiogram: 11/11/22 Elbow Medications Home Medications (20) Active albuterol 2.5 mg/3 mL (0.083%) inhalation solution 2.5 mg = 3 mL, Inhalation, q6h allopurinol 100 mg oral tablet 100 mg = 1 tab(s), Oral, qDay cetirizine 10 mg oral tablet 10 mg = 1 tab(s), Oral, Daily DULoxetine 20 mg oral delayed release capsule 20 mg = 1 cap(s), Oral, qDay furosemide 20 mg oral tablet 20 mg = 1 tab(s), Oral, Daily Nexletol 180 mg oral tablet 180 mg = 1 tab(s), Oral, qDay omeprazole 40 mg oral delayed release capsule 40 mg = 1 cap(s), Oral, BID Potassium Chloride (Eqv-K-Tab) 10 mEq oral tablet, extended release 10 mEq = 1 tab(s), Oral, qDay Potassium Chloride (Eqv-K-Tab) 20 mEq oral tablet, extended release 20 mEq = 1 tab(s), Oral, qDay pravastatin 40 mg oral tablet 40 mg = 1 tab(s), Oral, qDay spironolactone 25 mg oral tablet 25 mg = 1 tab(s), Oral, qDay Symbicort 80 mcg-4.5 mcg/inh Inhaler 2 puff(s), Inhalation, BID Tikosyn 250 mcg oral capsule 250 mcg = 1 cap(s), Oral, BID tiZANidine 2 mg oral tablet 2 mg = 1 tab(s), PRN, Oral, q8h Toprol-XL 100 mg oral tablet, extended release 100 mg = 1 tab(s), Oral, BID traZODone 100 mg oral tablet 100 mg = 1 tab(s), Oral, qHS Trulicity Pen 1.5 mg/0.5 mL subcutaneous solution 1.5 mg, Subcutaneous, qWeek Tylenol , PRN, Oral Vistaril 25 mg oral capsule 25 mg = 1 cap(s), PRN, Oral, QID Xarelto 20 mg oral tablet 20 mg = 1 tab(s), Oral, qHS Allergies Statins myalgia Social History Alcohol Use: Past., 07/11/2022 Nutrition/Health Caffeine intake amount: pop 3 daily., 11/08/2022 Substance Abuse Use: Never., 07/11/2022 Tobacco Nicotine Use: Former smoker, quit more than 30 days ago, former chewer of tobacco. Type: Oral (Snuff, Chew). Smokeless Tobacco Use: Former smokeless tobacco user, quit more than 30 days ago, stopped snuff October 2022., 01/12/2024 Nicotine Use: Former smoker, quit more than 30 days ago., 07/11/2022 Family History Cancer: Father. Heart disease: Mother and Grandparent. Stroke: Father. Health Status Family Member(s) Immunizations pneumococcal 13-valent conjugate vaccine: 0.5 unknown unit (04/12/22) SARS-CoV-2 (COVID-19) mRNA-1273 vaccine: 0 unknown unit (09/11/20) SARS-CoV-2 (COVID-19) mRNA-1273 vaccine: 0 unknown unit (08/14/20) Code Status Code Status - Ordered -- 10/16/24 20:56:00 EDT, Full Code, Constant Order Digitally Signed by RIC ARELLANO DO on 10/16/2024 09:43 PM [facility] [id number] Note* Exam Date Time Procedure Performing Provider Status 10/16/24 8:42 PM XR Ankle Minimum 3 Views Right TRACE ROUSE MD; Auth (Verified) [id number] ORIGINAL EXAMINATION: THREE XRAY VIEWS OF THE RIGHT ANKLE10/16/2024 8:42 pm COMPARISON: 10/17/2023, 7:10 p.m. HISTORY: ORDERING SYSTEM PROVIDED HISTORY: Reason for Exam: post reduction, FINDINGS: Casting artifact limits detail. No significant change in alignment post reduction IMPRESSION: No significant change in alignment post reduction. I have personally reviewed the images of this examination and agree with the resident's findings and interpretation. Interpreted by: Trace Fierro Preliminary Report By: Jordon Levin Electronically signed By Trace Fierro Dictated Date: 10/16/2024 8:55:43 PM Prelim Date: 10/16/2024 8:57:44 PM Sign Date: 10/16/2024 9:20:54 PM Ordering Provider: RIC ARELLANO [facility] [id number] Note* Exam Date Time Procedure Performing Provider Status 10/16/24 7:09 PM XR Ankle Minimum 3 Views Right TRACE ROUSE MD; Auth (Verified) [id number] ORIGINAL EXAMINATION: THREE XRAY VIEWS OF THE RIGHT ANKLE10/16/2024 7:09 pm COMPARISON: 10/16/2024 5:44 p.m. HISTORY: ORDERING SYSTEM PROVIDED HISTORY: Reason for Exam: pain, fracture, post reduction FINDINGS: There is no significant change in alignment post reduction. IMPRESSION: No significant change in alignment post reduction. I have personally reviewed the images of this examination and agree with the resident's findings and interpretation. Interpreted by: Trace Fierro Preliminary Report By: Keagan Huggins MD Electronically signed By Trace Fierro Dictated Date: 10/16/2024 7:23:46 PM Prelim Date: 10/16/2024 7:53:07 PM Sign Date: 10/16/2024 7:53:07 PM Ordering Provider: EM GARCIA [facility] [id number] Note* Exam Date Time Procedure Performing Provider Status 10/16/24 5:43 PM XR Ankle Minimum 3 Views Right TRACE ROUSE MD; Auth (Verified) [id number] ORIGINAL EXAMINATION: THREE XRAY VIEWS OF THE RIGHT ANKLE10/16/2024 5:44 pm COMPARISON: None HISTORY: ORDERING SYSTEM PROVIDED HISTORY: Reason for Exam: pain, fall FINDINGS: Comminuted obliquely oriented fracture of distal fibular shaft at and above the level of syndesmosis with syndesmotic injury and widening. There is widening and subluxation of tibiotalar joint with medial displacement of tibia relative to talus and widening of medial tibiotalar space. Possible nondisplaced fracture at inferior aspect of cuboid bone. Fracture fragments seen at medial aspect of talus inferior to medial malleolus with unclear origin. Corticated ossific density seen at tip of lateral malleolus likely remote injury. Soft tissue swelling around ankle joint.. IMPRESSION: Fracture subluxation of the ankle. Possible nondisplaced fracture inferior aspect of cuboid bone. Fracture fragments at medial aspect of talus inferior to medial malleolus with unclear origin. I have personally reviewed the images of this examination and agree with the resident's findings and interpretation. Interpreted by: Trace Fierro Preliminary Report By: Jordon Levin Electronically signed By Trace Fierro Dictated Date: 10/16/2024 5:48:30 PM Prelim Date: 10/16/2024 5:53:49 PM Sign Date: 10/16/2024 6:28:12 PM Ordering Provider: [facility]05-21-2025 Evaluation + Plan noteExtracted from: Title:Ortho History and Physical Author:RIC ARELLANO DO Date:10/16/24 Closed displaced bimalleolar fracture of right ankle - 54-year-old male presents after mechanical ground-level fall this was a closed, isolated injury. Patient is NV intact. -I explained to the patient the need for surgical intervention to prevent major morbidity mortality with nonoperative treatment. Patient voiced understanding and was agreeable to proceed. -Will obtain informed consent and plan for right ankle spanning external fixator with Dr. Quintana on 10/16/2024. -Patient placed in a AO splint -Hold any chemical DVT prophylaxis at this time - will order SCDs -Pain control -Percocet/morphine -Bedrest, NWB right lower extremity -N.p.o. at midnight - Ancef on-call to the OR -We will order type and screen preoperatively. Patient's current hemoglobin 14.3, platelets 152 -Awaiting medical optimization -Plan discussed with Dr. Quintana Orders: acetaminophen(Tylenol), 650 mg= 2 tab(s), Oral, q4h, PRN acetaminophen-oxyCODONE(Percocet 325/5), 2 tab(s), Oral, q4h, PRN acetaminophen-oxyCODONE(Percocet 325/5), 1 tab(s), Oral, q4h, PRN diphenhydrAMINE(Benadryl), 25 mg= 1 tab(s), Oral, qHS, PRN docusate(Colace), 100 mg= 1 cap(s), Oral, BID, PRN glucose(Dextrose 50% IV Push), 25 gram(s)= 50 mL, IV Push, AsDirected, PRN Lactated Ringers Infusion 1000 mL(LR 1000 mL), 1000 mL, Intravenous morphine, 4 mg= 1 mL, IV Push, q3h, PRN ondansetron(Zofran), 4 mg= 2 mL, IV Push, q4h, PRN polyethylene glycol 3350(Miralax Powder Packet), 17 gram(s)= 15 mL, Oral, qDay, PRN Basic Metabolic Panel(BMP), 10/16/24 21:21:00 EDT, Timed Study (collect at specified time), Blood, q24h, for 5 day(s), Preferred Lab: [facility], Stop date 10/20/24 22:00:00 EDT Bedrest, 10/16/24 21:21:00 EDT, Strict, continuous, Constant order Blood Glucose Call Parameter, 10/16/24 21:21:00 EDT, If patient is NPO for x-ray or surgery and hypoglycemic, call physician for further orders, 10/16/24:21:00 EDT Blood Glucose Call Parameter, 10/16/24:21:00 EDT, call provider if patient's blood glucose is <70mg/dL, 10/16/24 21:21:00 EDT Blood Glucose Monitoring Bedside PRN, 10/16/24 21:21:00 EDT, PRN Order, For signs/symptoms of hypoglycemia Communication Order (continuous), 10/16/24 21:21:00 EDT, Stat EKG will be obtained in the setting of new, ongoing or worsening chest discomfort/acute coronary syndrome symptoms in all nursing units and/or rhythm change in all monitored units., 10/16/24 21:21:00 EDT Complete Blood Count(CBC), 10/16/24 21:21:00 EDT, Timed Study (collect at specified time), Blood, q24h, for 5 day(s), [facility], Stop date 10/20/24 22:00:00 EDT Complete Metabolic Panel(CMP), 10/16/24 21:21:00 EDT, URGENT (collect within 2 hrs), Blood, Once, Nurse Collect, Preferred Lab: [facility], Stop date 10/16/24 21:37:00 EDT Consult to Physician, 10/16/24 21:21:00 EDT, [facility] (For Consultation Assignment Only NO other Orders), Routine, medical clearance, follow medically Diet Order, 10/16/24 21:21:00 EDT, Start Meal: Next meal, Regular, Constant Order, : N/A, : N/A Electrocardiogram(EKG), 10/16/24 21:21:00 EDT, Complete by Nursing Incentive Spirometer, 10/16/24 21:21:00 EDT, [id number] Intake and Output, 10/16/24 21:21:00 EDT, q8h (2p, 10p, 6a) IV Catheter Insertion/Care(Peripheral IV Insertion/Care), 10/16/24 21:21:00 EDT, IV Care: Once, 18 gauge angiocath, if possible Pulse Oximeter - Intermittent, 10/16/24 21:21:00 EDT, AsDirected, PRN order, On admission and as indicated Type and Screen, 10/16/24 21:21:00 EDT, URGENT (collect within 2 hrs), Blood, Once, Nurse Collect, Preferred Lab: [facility], Stop date 10/16/24 21:21:00 EDT Vital Signs, 10/16/24 21:21:00 EDT, q8h Addendum by NANI QUINTANA DO on October 17, 2024 07:11:24 EDT Patient seen and examined person by myself in preoperative holding area agree with resident's note as above. Patient has a closed bimalleolar fracture dislocation of his ankle with an isolated lateral malleolus and medial clear space widening. Patient has significant blistering and swelling to the right lower extremity. He has a history of diabetes, nicotine use COPD and CHF. I discussed with him that he is at high risk for amputation with these wounds, low blood flow to the lower extremity and diabetes. Discussed with him plan would be for application of external fixator today. I discussed with him with his blisters and significant swelling and being on Xarelto that it will be many weeks before we can plan definitive fixation. Skin is the most important at this point. Once swelling and skin is appropriate for surgical fixation we can proceed with definitive fixation. Did discuss with him that if definitive fixation is delayed too long may treat this solely in the external fixator if the fibula heals in good alignment. All of this will be discussed later date depending on how he does. Most Port[place] thing at this point is to get his skin to heal. Will plan on the external fixator today and dressing changes. Likely consult wound care and keep on some antibiotics. Further recommendations will be made postoperatively. Future Appointments Appointment Date:11/08/2024 02:30:00 PM Scheduled Provider:EDY WEBER [facility] Appointment Type:CV OV Hospital Follow Up Appointment Date:11/12/2024 03:30:00 PM Scheduled Provider:ISADORA CORREA Location:[facility] Appointment Type:PC OV Future Scheduled Tests Laboratory* Basic Metabolic Panel 02/07/24 * Basic Metabolic Panel 12/10/24 * Basic Metabolic Panel 02/19/24 * Magnesium Level 02/07/24 * Complete Blood Count 08/27/24 * Complete Metabolic Panel 08/27/24 * N-Terminal proBNP 08/27/24 [facility] 05-09-2025 Hospital Discharge instructions Patient Education 10/04/2024 21:03:30 Shortness of Breath, Adult Shortness of Breath, Adult Shortness of breath is when a person has trouble breathing enough air or when a person feels like she or he is having trouble breathing in enough air. Shortness of breath could be a sign of a medicalproblem. Follow these instructions at home: Pay attention to any changes in your symptoms. Do not use any products that contain nicotine or tobacco, such as cigarettes, e- cigarettes, and chewing tobacco. Do not smoke. Smoking is a common cause of shortness of breath. If you need help quitting, ask yourhealth care provider. Avoid things that can irritate your airways, such as: ?Mold. ?Dust. ?Air pollution. ?Chemical fumes. ?Things that can cause allergy symptoms (allergens), if you have allergies. Keep your living space clean and free of mold and dust. Rest as needed. Slowly return to your usual activities. Take gdbg-tsg-pimizyr and prescription medicines only as told by your health care provider. This includes oxygen therapy and inhaled medicines. Keep all follow-up visits as told by your health care provider. This is important. Contact a health care provider if: Your condition does not improve as soon as expected. You have a hard time doing your normal activities, even after you rest. You have new symptoms. Get help right away if: Your shortness of breath gets worse. You have shortness of breath when you are resting. You feel light-headed or you faint. You have a cough that is not controlled with medicines. You cough up blood. You have pain with breathing. You have pain in your chest, arms, shoulders, or abdomen. You have a fever. You cannot walk up stairs or exercise the way that you normally do. These symptoms may represent a serious problem that is an emergency. Do not wait to see if the symptoms will go away. Get medical help right away. Call your local emergency services (911 in the [place] Do not drive yourself to the hospital. Summary Shortness of breath is when a person has trouble breathing enough air. It can be a sign of a medical problem. Avoid things that irritate your lungs, such as smoking, pollution, mold, and dust. Pay attention to changes in your symptoms and contact your health care provider if you have a hard time completing daily activities because of shortness of breath. This information is not intended to replace advice given to you by your health care provider. Make sure you discuss any questions you have with your health care provider. Document Released: 02/07/2002 Document Revised: 10/15/2018 Document Reviewed: 10/15/2018 [employer] Patient Education 2020 [employer] 10/04/2024 21:03:30 Pursed Lip Breathing Pursed Lip Breathing Pursed lip breathing is a technique to relieve the feeling of being short of breath. Some long-termrespiratory conditions, like chronic obstructive pulmonary disease (COPD) and severe asthma, can make it hard to breathe out (exhale) all of the air in your lungs. This can make air that has less oxygen than normal build up in your lungs (air trapping). Trapped air means your lungs fill with less fresh air when you breathe in (inhale). As a result, you feel short of breath. Pursed lip breathing keeps your airways open longer when you exhale and empties more air from your lungs. This makes more space for fresh air when you inhale. Pursed lip breathing can also slow down your breathing and help your body not have to work so hard to breathe. Over time, pursed lip breathing may help you be able to be more physically active and do more activities. How to perform pursed lip breathing Being short of breath can make you tense and anxious. Before you start this breathing exercise, take a minute to relax your shoulders and close your eyes. Then: 1.Start the exercise by closing your mouth. 2.Breathe in through your nose, taking a normal breath. You can do this at your normal rate of breathing. If you feel you are not getting enough air, breathe in while slowly counting to 2 or 3. 3.Pucker (purse) your lips as if you were going to whistle. 4.Gently tighten your abdomen muscles or press on your belly to help push the air out. 5.Breathe out slowly through your pursed lips. Take at least twice as long to breathe out as it takes you to breathe in. 6.Make sure that you breathe out all of the air, but do not force air out. 7.Repeat the exercise until your breathing improves. Ask your health care provider how often and how long to do this exercise. Follow these instructions at home: Take uuvd-dtk-qfgmpqn and prescription medicines only as told by your health care provider. Return to your normal activities as told by your health care provider. Ask your health care provider what activities are safe for you. Do not use any products that contain nicotine or tobacco, such as cigarettes and e-cigarettes. If you need help quitting, ask your health care provider. Keep all follow-up visits as told by your health care provider. This is important. Contact a health care provider if: Your shortness of breath gets worse. You become less able to exercise or be active. You develop a cough. You develop a fever. Get help right away if: You are struggling to breathe. Your shortness of breath prevents you from engaging in any activity. Summary Pursed lip breathing is a breathing technique that helps to remove trapped air from your lungs. It helps you get more oxygen into your lungs and makes your body have to work less hard to breathe. Pursed lip breathing can gradually make you more able to be physically active. You can do pursed lip breathing on your own at home. Ask your health care provider how often and how long you should do pursed lip breathing. This information is not intended to replace advice given to you by your health care provider. Make sure you discuss any questions you have with your health care provider. Document Released: 02/21/2009 Document Revised: 04/27/2018 Document Reviewed: 04/06/2017 [employer] Patient Education 2020 [employer]. 10/04/2024 21:03:27 Cough, Adult Cough, Adult Coughing is a reflex that clears your throat and your airways (respiratory system). Coughing helps to heal and protect your lungs. It is normal to cough occasionally, but a cough that happens with other symptoms or lasts a long time may be a sign of a condition that needs treatment. An acute cough may only last 2 3 weeks, while a chronic cough may last 8 or more weeks. Coughing is commonly caused by: Infection of the respiratory systemby viruses or bacteria. Breathing in substances that irritate your lungs. Allergies. Asthma. Mucus that runs down the back of your throat (postnasal drip). Smoking. Acid backing up from the stomach into the esophagus (gastroesophageal reflux). Certain medicines. Chronic lung problems. Other medical conditions such as heart failure or a blood clot in the lung (pulmonary embolism). Follow these instructions at home: Medicines Take znbj-hdo-qrzwyea and prescription medicines only as told by your health care provider. Talk with your health care provider before you take a cough suppressant medicine. Lifestyle Avoid cigarette smoke. Do not use any products that contain nicotine or tobacco, such as cigarettes, e-cigarettes, and chewing tobacco. If you need help quitting, ask your health care provider. Drink enough fluid to keep your urine pale yellow. Avoid caffeine. Do not drink alcohol if your health care provider tells you not to drink. General instructions Pay close attention to changes in your cough. Tell your health care provider about them. Always cover your mouth when you cough. Avoid things that make you cough, such as perfume, candles, cleaning products, or campfire or tobacco smoke. If the air is dry, use a cool mist vaporizer or humidifier in your bedroom or your home to help loosen secretions. If your cough is worse at night, try to sleep in a semi-upright position. Rest as needed. Keep all follow-up visits as told by your health care provider. This is important. Contact a health care provider if you: Have new symptoms. Cough up pus. Have a cough that does not get better after 2 3 weeks or gets worse. Cannot control your cough with cough suppressant medicines and you are losing sleep. Have pain that gets worse or pain that is not helped with medicine. Have a fever. Have unexplained weight loss. Have night sweats. Get help right away if: You cough up blood. You have difficulty breathing. Your heartbeat is very fast. These symptoms may represent a serious problem that is an emergency. Do not wait to see if the symptoms will go away. Get medical help right away. Call your local emergency services (911 in the [place] Do not drive yourself to the hospital. Summary Coughing is a reflex that clears your throat and your airways. It is normal to cough occasionally, but a cough that happens with other symptoms or lasts a long time may be a sign of a condition that needs treatment. Take oelr-nfv-pmyhkyf and prescription medicines only as told by your health care provider. Always cover your mouth when you cough. Contact a health care provider if you have new symptoms or a cough that does not get better after 23 weeks or gets worse. This information is not intended to replace advice given to you by your health care provider. Make sure you discuss any questions you have with your health care provider. Document Released: 11/11/2011 Document Revised: 06/03/2019 Document Reviewed: 06/03/2019 [employer] Patient Education 2020 [employer]. Follow Up Care 10/02/2024 02:08:49 With:readmission score is 13 Address:Unknown When: Unknown With:ISADORA CORREA Address: [address] [place] [phone] Business (1) When:1-2 days [facility] 05-09-2025 Note Discharge Instructions Thank you for allowing [facility] to assist you with your healthcare needs. The following is importantdischarge information regarding your hospital visit. Your Care Team ISADORA CORREA Your Diagnosis Shortness of breath What to do next Scheduled Follow-Up Appointments Appointment Type When With Where Contact Information StatusPC OV 10/23/2024 04:00 PM EDT ISADORA CORREA [facility] Confirmed CV OV Hospital Follow Up 11/08/2024 02:30 PM EDT EDY WEBER [facility] Confirmed Follow Up Appointments Follow Up with readmission score is 13 Follow Up with ISADORA CORREA When:Within 1-2 days Where:[address] [facility] [place] [phone] Business (1) The Following Activity and Diet Have Been Ordered for You Discharge Activity - Ordered -- Activity As Tolerated, 10/04/24 20:49:00 EDT Discharge Diet - Ordered -- Type of Diet: Cardiac, 10/04/24 20:49:00 EDT The Following Equipment Has Been Ordered for You No qualifying data available. The Following Treatments Have Been Ordered for You Discharge Labs No qualifying data available. Discharge Radiology No qualifying data available. Other Therapies Discharge Event Monitor Instructions - Ordered -- 10/04/24 20:49:18 EDT, You have been ordered mobile outpatient telemetry. You should receive a device in the mail with further instructions. If you have not received a device within 14 days after discharge, please call [facility] at [phone]. Post Acute Orders No qualifying data available. Someone Will Contact You Regarding These Home Health Referrals No home referrals have been ordered for you. No one will call you. Allergies Statins myalgia Medications Please ask your primary doctor or pharmacist before taking any other medication not listed, including over the counter drugs, herbal medications, vitamins and or supplements as they may interact withyour home medications. What How Much When Why Instructions Last Dose Changed potassium chloride (Potassium Chloride (Eqv-K-Tab) 10 mEq oral tablet, extended release) 1 tab(s) by mouth Once a day Changed potassium chloride (Potassium Chloride (Eqv-K-Tab) 20 mEq oral tablet, extended release) 1 tab(s) by mouth Once a day Take with food Pickup at [facility]/pharmacy #[id number] Unchanged acetaminophen (Tylenol) by mouth As needed for as needed for pain Unchanged albuterol (albuterol 2.5 mg/ 3 mL (0.083%) inhalation solution) 3 Milliliter by inhalation Every 6 hours Unchanged allopurinol (allopurinol 100 mg oral tablet) 1 tab(s) by mouth Once a day Unchanged bempedoic acid (Nexletol 180 mg oral tablet) 1 tab(s) by mouth Once a day Unchanged budesonide-formoterol (Symbicort 80 mcg-4.5 mcg/ inh Inhaler) 2 puff(s) by inhalation Two (2) times a day Duration: 90 Days Unchanged cetirizine (cetirizine 10 mg oral tablet) 1 tab(s) by mouth Every day Duration: 90 Days Unchanged dofetilide (Tikosyn 250 mcg oral capsule) 1 cap by mouth Two (2) times a day Pickup at [facility]/pharmacy #[id number] Unchanged dulaglutide (Trulicity Pen 1.5 mg/ 0.5 mL subcutaneous solution) 1.5 Milligram Subcutaneous Every week Duration: 90 Days Unchanged DULoxetine (DULoxetine 20 mg oral delayed release capsule) 1 cap by mouth Once a day Unchanged furosemide (furosemide 20 mg oral tablet) 1 tab(s) by mouth Every day Take 2 tablets daily for the first 3 days followed by 1 tablet daily. Unchanged hydrOXYzine (Vistaril 25 mg oral capsule) 1 cap by mouth Four (4) times a day as needed for as needed for anxiety Duration: 30 Days Unchanged metoprolol (Toprol-XL 100 mg oral tablet, extended release) 1 tab(s) by mouth Two (2) times a day Shortness of breath Duration: 90 Days do not crush or chew Unchanged omeprazole (omeprazole 40 mg oral delayed release capsule) 1 cap by mouth Two (2) times a day before a meal. Unchanged pravastatin (pravastatin 40 mg oral tablet) 1 tab(s) by mouth Once a day Unchanged rivaroxaban (Xarelto 20 mg oral tablet) 1 tab(s) by mouth Daily at bedtime Pickup at [facility]/pharmacy #[id number] Unchanged spironolactone (spironolactone 25 mg oral tablet) 1 tab(s) by mouth Once a day Duration: 90 Days Unchanged tiZANidine (tiZANidine 2 mg oral tablet) 1 tab(s) by mouth Every 8 hours as needed for as needed for muscle spasm Duration: 7 Days Unchanged traZODone (traZODone 100 mg oral tablet) 1 tab(s) by mouth Daily at bedtime Pharmacy Information [facility]/pharmacy #[id number]: [address], [place] [phone] Please take this list to your next doctor s visit. Bring all medications you take, including over the counter medications, herbals and other supplements with you to your doctor s visit. Patients and families are reminded to discard old lists and to update any records with all medication providers or retail pharmacies. Medication Leaflets hydroxyzine (shelley DROX ee zeen) Mandeep What is the most important information I should know about hydroxyzine? You should not use hydroxyzine if you are , especially during the first or second trimester. Hydroxyzine can cause a serious heart problem, especially if you use certain medicines at the same time. Tell your doctor about all your current medicines and any you start or stop using. What is hydroxyzine? Hydroxyzine reduces activity in the central nervous system. It also acts as an antihistamine that reduces the effects of natural chemical histamine in the body. Histamine can produce symptoms of itching, or hives on the skin. Hydroxyzine is used as a sedative to treat anxiety and tension. It is also used together with othermedications given during and after general anesthesia. Hydroxyzine is also used to treat allergic skin reactions such as hives or contact dermatitis. Hydroxyzine may also be used for purposes not listed in this medication guide. What should I discuss with my healthcare provider before taking hydroxyzine? You should not use hydroxyzine if you are allergic to it, or if: you have long QT syndrome; you are allergic to cetirizine (Zyrtec) or levocetirizine (Xyzal); or you are in the first trimester of . You should not use hydroxyzine if you are , especially during the first or second trimester. Hydroxyzine could harm the unborn baby or cause defects. Use effective control to prevent while you are using this medicine. To make sure hydroxyzine is safe for you, tell your doctor if you have: blockage in your digestive tract (stomach or intestines); bladder obstruction or other urination problems; glaucoma; heart disease, slow heartbeats; personal or family history of long QT syndrome; an electrolyte imbalance (such as high or low levels of potassium in your blood); if you have recently had a heart attack. It is not known whether hydroxyzine passes into breast milk or if it could harm a nursing baby. Youshould not breast-feed while using this medicine. Do not give this medicine to a child without medical advice. How should I take hydroxyzine? Follow all directions on your prescription label. Your doctor may occasionally change your dose. Donot use this medicine in larger or smaller amounts or for longer than recommended. Shake the oral suspension (liquid) well just before you measure a dose. Measure liquid medicine with the dosing syringe provided, or with a special dose- measuring spoon or medicine cup. If you do nothave a dose-measuring device, ask your pharmacist for one. Hydroxyzine is for short-term use only. You should not take this medicine for longer than 4 months. Call your doctor if your anxiety symptoms do not improve, or if they get worse. Store at room temperature away from moisture and heat. What happens if I miss a dose? Take the missed dose as soon as you remember. Skip the missed dose if it is almost time for your next scheduled dose. Do not take extra medicine to make up the missed dose. What happens if I overdose? Seek emergency medical attention or call the Poison Help line at . Overdose symptoms may include severe drowsiness, nausea, vomiting, uncontrolled muscle movements, or seizure (convulsions). What should I avoid while taking hydroxyzine? This medicine may impair your thinking or reactions. Be careful if you drive or do anything that requires you to be alert. Drinking alcohol with this medicine can cause side effects. What are the possible side effects of hydroxyzine? Get emergency medical help if you have signs of an allergic reaction: hives; difficult breathing; swelling of your face, lips, tongue, or throat. In rare cases, hydroxyzine may cause a severe skin reaction. Stop taking this medicine and call your doctor right away if you have sudden skin redness or a rash that spreads and causes white or yellow pustules, blistering, or peeling. Stop using hydroxyzine and call your doctor at once if you have: fast or pounding heartbeats; headache with chest pain; severe dizziness, fainting; or a seizure (convulsions). Side effects such as drowsiness and confusion may be more likely in older adults. Common side effects may include: drowsiness; headache; dry mouth; or skin rash. This is not a complete list of side effects and others may occur. Call your doctor for medical advice about side effects. You may report side effects to FDA at 9-450-AGS-9388. What other drugs will affect hydroxyzine? Taking this medicine with other drugs that make you sleepy can worsen this effect. Ask your doctor before taking hydroxyzine with a sleeping pill, narcotic pain medicine, muscle relaxer, or medicine for anxiety, depression, or seizures. Hydroxyzine can cause a serious heart problem, especially if you use certain medicines at the same time, including antibiotics, antidepressants, heart rhythm medicine, antipsychotic medicines, and medicines to treat cancer, malaria, HIV or AIDS. Tell your doctor about all medicines you use, and those you start or stop using during your treatment with hydroxyzine. Other drugs may interact with hydroxyzine, including prescription and iaro-nwg-tlftvjn medicines, vitamins, and herbal products. Not all possible interactions are listed here. Tell each of your health care providers about all medicines you use now and any medicine you start or stop using. Where can I get more information? Your pharmacist can provide more information about hydroxyzine. Remember, keep this and all other medicines out of the reach of children, never share your medicines with others, and use this medication only for the indication prescribed. Every effort has been made to ensure that the information provided by [employer] is accurate, up-to-date, and complete, but no guarantee is made to that effect. Drug information contained herein may be time sensitive. [employer] information has been compiled for use by healthcare practitioners and consumers in the [place] and therefore [employer] does not warrant that uses outside of the [place] are appropriate, unless specifically indicated otherwise. [employer] drug information does not endorse drugs, diagnose patients or recommend therapy. [employer] drug information isan informational resource designed to assist licensed healthcare practitioners in caring for their p atients and/or to serve consumers viewing this service as a supplement to, and not a substitute for, the expertise, skill, knowledge and judgment of healthcare practitioners. The absence of a warningfor a given drug or drug combination in no way should be construed to indicate that the drug or drug combination is safe, effective or appropriate for any given patient. [employer] does not assume any responsibility for any aspect of healthcare administered with the aid of information [employer] provides. The information contained herein is not intended to cover all possible uses, directions, precautions, warnings, drug interactions, allergic reactions, or adverse effects. If you have questions about the drugs you are taking, check with your doctor, nurse or pharmacist. Copyright 2567-2262 [employer]. Version: 8.01. Revision Date: 08/10/2016. furosemide (oral/injection) (fur [place] se mide) Furoscix, Lasix What is the most important information I should know about furosemide? You should not use this medicine if you are unable to urinate. Using more than your recommended dose will not make this medicine more effective. High doses of furosemide may cause irreversible hearing loss. Tell your doctor about all your other medicines. Some drugs should not be used with furosemide. What is furosemide? Furosemide is used to treat fluid retention (edema) in people with congestive heart failure, liver disease, or a kidney disorder such as nephrotic syndrome. Furosemide is also used to treat high blood pressure (hypertension). The Furoscix brand of furosemide is only used in adults. Furosemide may also be used for purposes not listed in this medication guide. What should I discuss with my healthcare provider before using furosemide? You should not use furosemide if you are allergic to it, if you are unable to urinate or have hepatic cirrhosis. You should not use Furoscix if you have ascites or have allergies to medical adhesives. Tell your doctor if you have ever had: an electrolyte imbalance (such as low levels of potassium or magnesium in your blood); enlarged prostate, bladder obstruction, or other urination problems; gout; lupus; diabetes; an allergy to sulfa drugs; kidney disease; or cirrhosis or other liver disease. Tell your doctor if you have an MRI (magnetic resonance imaging) or any type of scan using a radioactive dye that is injected into a vein. Contrast dyes and furosemide can harm your kidneys. It is not known if furosemide will harm an unborn baby. Tell your doctor if you are or plan to become . It may not be safe to breastfeed while using this medicine. Ask your doctor about any risk. Furosemide may slow breast milk production. How should I use furosemide? Follow all directions on your prescription label and read all medication guides or instruction sheets. Use the medicine exactly as directed. Furosemide oral is taken by mouth. Furosemide injection is given in a muscle, under the skin, or susan vein. A healthcare provider will give you this injection if you are unable to take the medicine by mouth. Furoscix infusion lasts about 5 hours. Furoscix should not get wet. Do not bathe, shower, swim or exercise while wearing the infusor. Also do not apply any products such as lotions or creams in the area where the infusor is placed. It is not recommended to travel by car or airplane while using Furoscix. Also do not use the infusor within 12 inches of mobile phones, tablets, computers, or wireless accessories such as remote control, or Bluetooth devices. Do not reuse a needle, syringe or cartridge. Place them in a puncture-proof 'sharps' container and dispose of it following state or local laws. Keep out of the reach of children and pets. You may receive your first dose in a hospital or clinic setting if you have severe liver disease. Do not use more than your recommended dose. High doses of furosemide may cause irreversible hearingloss. Measure liquid medicine with the supplied measuring device (not a kitchen spoon). Doses are based on weight in children and teenagers. Your child's dose may change if the child gains or loses weight. Furosemide will make you urinate more often and you may get dehydrated easily. Follow your doctor'sinstructions about using potassium supplements or getting enough salt and potassium in your diet. This medicine can affect the results of certain medical tests. Tell any doctor who treats you that you are using furosemide. Your blood pressure will need to be checked often and you may need other medical tests. If you have high blood pressure, keep using this medicine even if you feel well. High blood pressure often has no symptoms. If you need surgery, tell the surgeon ahead of time that you are using furosemide. Store at room temperature away from moisture, heat, and light. Throw away any unused oral liquid after 90 days. What happens if I miss a dose? Furosemide is sometimes used only once, if you are not on a dosing schedule. If you are using the medication regularly, use the medicine as soon as you can, but skip the missed dose if it is almost time for your next dose. Do not use two doses at one time. What happens if I overdose? Seek emergency medical attention or call the Poison Help line at . Overdose symptoms may include feeling very thirsty or hot, heavy sweating, hot and dry skin, extreme weakness, or fainting. What should I avoid while using furosemide? Avoid getting up too fast from a sitting or lying position, or you may feel dizzy. Avoid becoming dehydrated. Follow your doctor's instructions about the type and amount of liquids you should drink while you are using furosemide. Drinking alcohol with this medicine can cause side effects. Furosemide could make you sunburn more easily. Avoid sunlight or tanning beds. Wear protective clothing and use sunscreen (SPF 30 or higher) when you are outdoors. If you have high blood pressure, ask a doctor or pharmacist before taking any medicines that can raise your blood pressure, such as diet pills or ihqat-zzn-ipbo medicine. What are the possible side effects of furosemide? Get emergency medical help if you have signs of an allergic reaction (hives, difficult breathing, swelling in your face or throat) or a severe skin reaction (fever, sore throat, burning eyes, skin pain, red or purple skin rash with blistering and peeling). Call your doctor at once if you have: a light-headed feeling, like you might pass out; ringing in your ears, hearing loss; muscle spasms or contractions; pale skin, easy bruising, unusual bleeding; high blood sugar--increased thirst, increased urination, dry mouth, fruity breath odor; kidney problems--swelling, urinating less, feeling tired or short of breath; signs of liver or pancreas problems--loss of appetite, upper stomach pain (that may spread to your back), nausea or vomiting, dark urine, jaundice (yellowing of the skin or eyes); or signs of an electrolyte imbalance--increased thirst or urination, constipation, muscle weakness, leg cramps, numbness or tingling, feeling jittery, fluttering in your chest. Common side effects may include: diarrhea, constipation, loss of appetite; numbness or tingling; headache, dizziness; or blurred vision. This is not a complete list of side effects and others may occur. Call your doctor for medical advice about side effects. You may report side effects to FDA at 0-306-CHH-7694. What other drugs will affect furosemide? Sometimes it is not safe to use certain medicines at the same time. Some drugs can affect your blood levels of other drugs you use, which may increase side effects or make the medicines less effective If you also take sucralfate, take your furosemide dose 2 hours before or 2 hours after you take sucralfate. Tell your doctor about all your other medicines, especially: another diuretic, especially ethacrynic acid; methotrexate; chloral hydrate; lithium; phenytoin; an antibiotic; cancer medicine, such as cisplatin; heart or blood pressure medicine; or NSAIDs (nonsteroidal anti-inflammatory drugs)--aspirin, ibuprofen (Advil, Motrin), naproxen (Aleve), celecoxib, diclofenac, indomethacin, meloxicam, and others. This list is not complete. Other drugs may affect furosemide, including prescription and ecjd-tom-xurnfhs medicines, vitamins, and herbal products. Not all possible drug interactions are listed here. Where can I get more information? Your doctor or pharmacist can provide more information about furosemide. Remember, keep this and all other medicines out of the reach of children, never share your medicines with others, and use this medication only for the indication prescribed. Every effort has been made to ensure that the information provided by [employer] is accurate, up-to-date, and complete, but no guarantee is made to that effect. Drug information contained herein may be time sensitive. [employer] information has been compiled for use by healthcare practitioners and consumers in the [place] and therefore [employer] does not warrant that uses outside of the [place] are appropriate, unless specifically indicated otherwise. [employer] drug information does not endorse drugs, diagnose patients or recommend therapy. [employer] drug information isan informational resource designed to assist licensed healthcare practitioners in caring for their p atients and/or to serve consumers viewing this service as a supplement to, and not a substitute for, the expertise, skill, knowledge and judgment of healthcare practitioners. The absence of a warningfor a given drug or drug combination in no way should be construed to indicate that the drug or drug combination is safe, effective or appropriate for any given patient. [employer] does not assume any responsibility for any aspect of healthcare administered with the aid of information [employer] provides. The information contained herein is not intended to cover all possible uses, directions, precautions, warnings, drug interactions, allergic reactions, or adverse effects. If you have questions about the drugs you are taking, check with your doctor, nurse or pharmacist. Copyright 0850-6365 [employer]. Version: .. Revision Date: 11/07/2023. cetirizine (oral/injection) (se CANDY edward) All Day Allergy (Cetirizine), All Day Allergy Children's, All Day Allergy Liquid Gels, Allergy Relief Children's, Aller-Sveta, Indoor and Outdoor Allergies, Indoor/Outdoor Allergy Relief, Quzyttir, ZyrTEC, ZyrTEC Children's Allergy, ZyrTEC Dissolve, ZyrTEC Liquid Gels What is the most important information I should know about cetirizine? Use only as directed. Tell your doctor if you use other medicines or have other medical conditions or allergies. What is cetirizine? Cetirizine oral is used to treat cold or allergy symptoms such as runny nose, sneezing, watery eyes, itching of nose, throat, or eyes. Cetirizine oral tablet, capsule, and oral disintegrating tablet are used in adults and children at least 6 years of age. Cetirizine oral liquid and chewable tablet can be used in adults and children at least 2 years of age. Cetirizine injection is used in adults and children at least 6 months old to treat hives (urticaria). Cetirizine may also be used for purposes not listed in this medication guide. What should I discuss with my healthcare provider before using cetirizine? You should not use this medicine if you are allergic to cetirizine or similar medicines such as: levocetirizine or hydroxyzine. Ask a doctor or pharmacist before using cetirizine oral if you have any health problems. Tell your doctor if you have or have ever had: recently used alcohol, sedatives, or tranquilizers; or liver or kidney disease. Tell your doctor if you are or . How should I use cetirizine? Follow all directions on your prescription label and read all medication guides or instruction sheets. Use the medicine exactly as directed. Cetirizine oral is taken by mouth with or without food. You must chew the chewable tablet before you swallow it. Remove an orally disintegrating tablet from the blister pack with dry hands only when you are readyto take the medicine. Take this medicine immediately after opening the blister pack. Allow the orally disintegrating tablet to dissolve in your mouth without chewing. Measure liquid medicine with the supplied measuring device (not a kitchen spoon). Cetirizine injection is injected into a vein by a healthcare provider. Your dose needs may change if you switch to a different brand, strength, or form of this medicine. Avoid medication errors by using exactly as directed on the label, or as prescribed by your doctor. Call your doctor if your symptoms do not improve, or if they get worse. Store at room temperature away from moisture, heat, and light. What happens if I miss a dose? Cetirizine oral is used when needed. If you are on a dosing schedule, skip any missed dose. Do not use two doses at one time. In a medical setting you are not likely to miss a dose of cetirizine injection. What happens if I overdose? Seek emergency medical attention or call the Poison Help line at . Overdose symptoms may include severe drowsiness, vision problems, agitation, fast heartbeats, stomach pain, nausea, vomiting, trouble walking, trouble swallowing or speaking. What should I avoid while using cetirizine? Avoid driving or hazardous activity until you know how this medicine will affect you. Dizziness or drowsiness can cause falls, accidents, or severe injuries. Drinking alcohol with this medicine can cause side effects. What are the possible side effects of cetirizine? Get emergency medical help if you have signs of an allergic reaction: hives, difficult breathing, swelling of your face, lips, tongue, or throat. Common side effects may include: nausea, vomiting, diarrhea; cough, drowsiness, tiredness; headache, dizziness, feeling light-headed; feeling hot, sweating; numbness, tingling, burning pain; altered sense of taste; upset stomach, constipation; or nosebleed, dry mouth, sore throat. This is not a complete list of side effects and others may occur. Call your doctor for medical advice about side effects. You may report side effects to FDA at 4-060-MUD-3216. What other drugs will affect cetirizine? Using cetirizine with other drugs that make you drowsy can worsen this effect. Ask your doctor before using opioid medication, a sleeping pill, a muscle relaxer, or medicine for anxiety or seizures. Other drugs may affect cetirizine, including prescription and dfwz-qji-aykknuc medicines, vitamins,and herbal products. Tell your doctor about all other medicines you use. Where can I get more information? Your doctor or pharmacist can provide more information about cetirizine. Remember, keep this and all other medicines out of the reach of children, never share your medicines with others, and use this medication only for the indication prescribed. Every effort has been made to ensure that the information provided by [employer] is accurate, up-to-date, and complete, but no guarantee is made to that effect. Drug information contained herein may be time sensitive. [employer] information has been compiled for use by healthcare practitioners and consumers in the [place] and therefore [employer] does not warrant that uses outside of the [place] are appropriate, unless specifically indicated otherwise. [employer] drug information does not endorse drugs, diagnose patients or recommend therapy. [employer] drug information isan informational resource designed to assist licensed healthcare practitioners in caring for their p atients and/or to serve consumers viewing this service as a supplement to, and not a substitute for, the expertise, skill, knowledge and judgment of healthcare practitioners. The absence of a warningfor a given drug or drug combination in no way should be construed to indicate that the drug or drug combination is safe, effective or appropriate for any given patient. [employer] does not assume any responsibility for any aspect of healthcare administered with the aid of information [employer] provides. The information contained herein is not intended to cover all possible uses, directions, precautions, warnings, drug interactions, allergic reactions, or adverse effects. If you have questions about the drugs you are taking, check with your doctor, nurse or pharmacist. Copyright 7906-4338 [employer]. Version: 13.. Revision Date: 11/16/2022. dofetilide (mathias FET i lide) Tikosyn What is the most important information I should know about dofetilide? You should not take dofetilide if you have severe kidney disease or a history of Long QT syndrome. Serious drug interactions can occur when certain medicines are used together with dofetilide. Tell each of your healthcare providers about all medicines you use now, and any medicine you start or stop using. You will need to spend at least 3 days in a hospital setting when you first start taking dofetilide. This is so your heart rhythm and kidney function can be monitored in case the medicine causes serious side effects. What is dofetilide? Dofetilide is a heart rhythm medicine, also called an antiarrhythmic. Dofetilide is used to help keep the heart beating normally in people with certain heart rhythm disorders of the atrium (the upper chambers of the heart that allow blood to flow into the heart). Dofetilide is used in people with atrial fibrillation or atrial flutter. Dofetilide may also be used for purposes not listed in this medication guide. What should I discuss with my health care provider before taking dofetilide? You should not take dofetilide if you are allergic to it, or if you have: severe kidney disease (or if you are on dialysis); or a history of Long QT syndrome. Some medicines can cause unwanted or dangerous effects when used with dofetilide, and should not beused at the same time. Your doctor may need to change your treatment plan if you use any of the following drugs: cimetidine; dolutegravir; ketoconazole; megestrol; prochlorperazine; trimethoprim (Proloprim, Trimpex, Bactrim, Septra); verapamil; or a diuretic (water pill) that contains hydrochlorothiazide (HCTZ), such as Accuretic, Aldactazide, Atacand HCT, Benicar HCT, Diovan HCT, Dyazide, Exforge HCT, Hyzaar, Lopressor HCT, Maxzide, Micardis HCT, Monopril HCT, Prinzide, Tekturna HCT, Vaseretic, and others. To make sure dofetilide is safe for you, tell your doctor if you have: heart disease, high blood pressure; liver or kidney disease; depression, mental illness; asthma or allergies; any active infection; skin problems; or an electrolyte imbalance (such as low levels of potassium or magnesium in your blood). It is not known whether this medicine will harm an unborn baby. Tell your doctor if you are or plan to become while using this medicine. It is not known whether dofetilide passes into breast milk or if it could harm a nursing baby. You should not breast-feed while you are using dofetilide. How should I take dofetilide? Dofetilide is available only from a hospital or specialty pharmacy. You will need to spend at least 3 days in a hospital setting when you first start taking dofetilide. This is so your heart rhythm and kidney function can be monitored in case the medicine causes serious side effects. Follow all directions on your prescription label. Do not take this medicine in larger or smaller amounts or for longer than recommended. You may take dofetilide with or without food. You should not skip doses or stop using dofetilide suddenly. Stopping suddenly may make your condition worse. Follow your doctor's instructions about tapering your dose. Tell your doctor if you have a prolonged illness that causes severe diarrhea, vomiting, or heavy sweating. These conditions can cause an electrolyte imbalance, making it dangerous for you to use dofetilide. Your blood pressure will need to be checked often. Your kidney function may also need to be checkedwith frequent blood tests. Store at room temperature away from moisture and heat. What happens if I miss a dose? Skip the missed dose and take your next dose at the usual time to stay on schedule. Do not take extra medicine to make up the missed dose. What happens if I overdose? Seek emergency medical attention or call the Poison Help line at . What should I avoid while taking dofetilide? Grapefruit and grapefruit juice may interact with dofetilide and lead to unwanted side effects. Discuss the use of grapefruit products with your doctor. What are the possible side effects of dofetilide? Get emergency medical help if you have any of these signs of an allergic reaction: hives; difficultbreathing; swelling of your face, lips, tongue, or throat. Call your doctor at once if you have: headache with chest pain and severe dizziness, fainting, fast or pounding heartbeats; loss of appetite, vomiting or severe diarrhea; or low magnesium or potassium--confusion, uneven heart rate, increased thirst or urination, sweating, jerking muscle movements, leg discomfort, muscle weakness or limp feeling. Common side effects may include: mild headache; mild dizziness; or cold symptoms such as stuffy nose, sneezing, sore throat. This is not a complete list of side effects and others may occur. Call your doctor for medical advice about side effects. You may report side effects to FDA at 1-291-JSB-4801. What other drugs will affect dofetilide? Other drugs may interact with dofetilide, including prescription and oone-nah-eyttvie medicines, vitamins, and herbal products. Tell each of your health care providers about all medicines you use nowand any medicine you start or stop using. Where can I get more information? Your doctor or pharmacist can provide more information about dofetilide. Remember, keep this and all other medicines out of the reach of children, never share your medicines with others, and use this medication only for the indication prescribed. Every effort has been made to ensure that the information provided by [employer]. ('[employer]') is accurate, up-to-date, and complete, but no guarantee is made to that effect. Drug information contained herein may be time sensitive. [employer] information has been compiled for use by healthcare practitioners and consumers in the [place] and therefore [employer] does not warrant that uses outside of the [place] are appropriate, unless specifically indicated otherwise. [employer] drug information does not endorse drugs, diagnose patients or recommend therapy. [employer] drug information isan informational resource designed to assist licensed healthcare practitioners in caring for their p atients and/or to serve consumers viewing this service as a supplement to, and not a substitute for, the expertise, skill, knowledge and judgment of healthcare practitioners. The absence of a warningfor a given drug or drug combination in no way should be construed to indicate that the drug or drug combination is safe, effective or appropriate for any given patient. [employer] does not assume any responsibility for any aspect of healthcare administered with the aid of information [employer] provides. The information contained herein is not intended to cover all possible uses, directions, precautions, warnings, drug interactions, allergic reactions, or adverse effects. If you have questions about the drugs you are taking, check with your doctor, nurse or pharmacist. Copyright 5020-1613 [employer]. Version: 4.01. Revision Date: 09/09/2015. allopurinol (oral/injection) (AL oh PURE i nol) Aloprim, Zyloprim What is the most important information I should know about allopurinol? In rare cases, allopurinol may cause a severe allergic reaction. Stop taking this medicine and callyour doctor right away if you have painful urination, blood in your urine, burning in your eyes, swelling in your face or throat, skin redness or a rash that spreads and causes blistering and peeling. You should not use this medicine if you have ever had an allergic reaction to allopurinol. What is allopurinol? Allopurinol is used to treat gout and recurrent kidney stones. Allopurinol is also used to decrease uric acid levels in people that are receiving treatment for certain types of cancer. Allopurinol may also be used for purposes not listed in this medication guide. What should I discuss with my healthcare provider before using allopurinol? You should not use allopurinol if you are allergic to it. Tell your doctor if you have ever had: diabetes; congestive heart failure; high blood pressure; if you are receiving chemotherapy; if you have a gene variation called HLA-B*58:01 allele (your doctor can test you for this); liver disease; or kidney disease. Allopurinol may harm an unborn baby. Tell your doctor if you are or plan to become . Do not breastfeed while using this medicine, and for at least 1 week after your last dose. How should I use allopurinol? Follow all directions on your prescription label and read all medication guides or instruction sheets. Your doctor may occasionally change your dose. Use the medicine exactly as directed. Allopurinol oral is taken by mouth. Take allopurinol oral with a full glass of water. To reduce your risk of kidney stones, drink 8 to 10 full glasses of fluid every day, unless your doctor tells you otherwise. Take with food if allopurinol oral upsets your stomach. Allopurinol injection is injected into a vein by a healthcare provider. Allopurinol injection is usually given by injection only if you are unable to take medicine by mouth. You may need frequent medical tests while using this medicine, even if you have no symptoms. Your kidney and liver function may also need to be tested. Your doctor may change your dose if yourkidney function changes. You may have gout attacks when you first start taking allopurinol oral. Your doctor may recommend another gout medication to take with allopurinol. Keep taking the medicine as directed. Your symptoms may not improve for up to 2 to 6 weeks. Call your doctor if your symptoms do not improve after 6 weeks. You may need to follow a special diet to help prevent kidney stones. Follow all instructions of your doctor or dietitian. Learn about the foods you should eat or avoid. Store at room temperature away from moisture and heat. What happens if I miss a dose? Take allopurinol oral as soon as you can, but skip the missed dose if it is almost time for your next dose. Do not take two doses at one time. Call your doctor for instructions if you miss an appointment for your allopurinol injection. What happens if I overdose? Seek emergency medical attention or call the Poison Help line at . What should I avoid while using allopurinol? Avoid driving or hazardous activity until you know how this medicine will affect you. Your reactions could be impaired. Avoid drinking alcohol. What are the possible side effects of allopurinol? Get emergency medical help if you have signs of an allergic reaction (hives, difficult breathing, swelling in your face or throat) or a severe skin reaction (fever, sore throat, burning eyes, skin pain, red or purple skin rash with blistering and peeling). Seek medical treatment if you have a serious drug reaction that can affect many parts of your body.Symptoms may include skin rash, fever, swollen glands, muscle aches, severe weakness, unusual bruising, or yellowing of your skin or eyes. Stop using allopurinol and call your (more content not included)... [facility] [id number] Pastoral care Progress note Pastoral Care Note Entered On: 10/04/2024 16:17 EDT Performed On: 10/04/2024 14:56 EDT by Sanjay Lucas Pastoral Care Type of Pastoral Visit : Initial visit Spiritual Care Visit Initiated by : Consult/Referral Spiritual Care Reason for Visit : General Pastoral Care Referral From : Nurse Spiritual Assessment : Grateful/Thankful Spiritual Care Intervention : Words of Encouragement, Supportive presence, Conversation Pastoral Care Comments : Supported the patient and offered to be part of his care team. he said he was happy he was going home tonight. I wished him well. Pastoral Care Visit Length : 10 minute(s) Sanjay Lucas - 10/04/2024 16:16 EDT Digitally Signed by Sanjay Lucas on 10/04/2024 04:16 PM [facility] [id number] Discharge summary Date of Service 10/04/2024 Discharge Diagnosis Paroxysmal atrial fibrillation Tachyarrhythmia induced cardiomyopathy Heart failure with improved EF (EF 30 to 35% in October 2022 to 55% in 2023) Moderate to severe LVH Mild pulmonary hypertension Severely dilated LA (LA 5.1 cm, DANIEL??) Obesity and KOFFI (intolerant to CPAP) Hypertension Diabetes mellitus Hospital Course CVC: Dr. Weber Past medical and cardiac history as in the assessment. 54-year-old male came in for frequent palpitations and shortness of breath for the last 3 days. Patient ran out of Tikosyn and Xarelto for a few days/weeks and started to feel symptoms. Patient denied recent weight gain, chest pain or discomfort, dyspnea, orthopnea, and PND. Also denied episode of lightheadedness, dizziness, patient with a syncope. Patient has been on Tikosyn and A-fib has been under control. Last cardioversion was in 2022. Patient was admitted and spontaneously converted back to sinus rhythm. EP team was consulted. Restarted the patient on Tikosyn. Echocardiogram was done and showed normal EF. Patient was euvolemic and no signs of heart failure. Completed 5 doses of Tikosyn with stable QTc. Patient will be discharged home today with plan for follow-up. Allergies Statins myalgia Consults Consult to Physician - Ordered -- 10/02/24 10:52:00 EDT, ARIEL ZIMMER MD, Routine, A fib, non-compliant, ? History of TACM, Ablation Consult to Spiritual Care Team (Consult to Pastoral Care) - Ordered -- 10/02/24 6:33:08 EDT Objective Vitals and Measurements T: 36.4 C (Oral) TMIN: 36.4 C (Oral) TMAX: 36.6 C (Oral) HR: 78 (Monitored) RR: 16 BP: 124/78 SpO2:92% WT: 142.1 kg Weight Current Weight Dosing Weight: 140.3 kg (10/02/24) Current Weight: 142.1 kg (10/04/24) Current Weight: 140.9 kg (10/03/24) General Appearance: Patient comfortably lying on bed, not in acute distress Head: Normocephalic, atraumatic EENT: PERRLA, Neck: Supple, no JVD, no mass Cardiac: s1s2,RRR, no murmurs or rubs or gallops Lungs: Clear to auscultation bilaterally, no wheeze or rhonchi or crackles Abdomen: Soft , Nontender, no organomegaly, bowel sounds heard Musculoskeletal: Full ROM , no gross deformities Extremities: No rash or ulcers or pedal edema Neurological: Alert, oriented x 3, grossly no focal neurological deficits Skin: No rash or ulcers Code Status Code Status - Ordered -- 10/02/24 6:33:00 EDT, Full Code, Constant Order Admission Date 10/02/2024 Discharge Date 10/04/2024 Medications Unchanged acetaminophen (Tylenol)by mouth as needed as needed for pain. albuterol (albuterol 2.5 mg/3 mL (0.083%) inhalation solution)3 Milliliter by inhalation every 6 hours. Refills: 0. allopurinol (allopurinol 100 mg oral tablet)1 tab(s) by mouth once a day. Refills: 3. bempedoic acid (Nexletol 180 mg oral tablet)1 tab(s) by mouth once a day. Refills: 5. budesonide-formoterol (Symbicort 80 mcg-4.5 mcg/inh Inhaler)2 puff(s) by inhalation two (2) times aday for 90 Days. Refills: 3. cetirizine (cetirizine 10 mg oral tablet)1 tab(s) by mouth every day for 90 Days. Refills: 3. dofetilide (Tikosyn 250 mcg oral capsule)1 cap by mouth two (2) times a day. Refills: 4. dulaglutide (Trulicity Pen 1.5 mg/0.5 mL subcutaneous solution)1.5 Milligram Subcutaneous every week for 90 Days. Refills: 3. DULoxetine (DULoxetine 20 mg oral delayed release capsule)1 cap by mouth once a day. furosemide (furosemide 20 mg oral tablet)1 tab(s) by mouth every day. Take 2 tablets daily for the first 3 days followed by 1 tablet daily.. Refills: 0. hydrOXYzine (Vistaril 25 mg oral capsule)1 cap by mouth four (4) times a day as needed as needed for anxiety for 30 Days. Refills: 3. metoprolol (Toprol-XL 100 mg oral tablet, extended release)1 tab(s) by mouth two (2) times a day for 90 Days. do not crush or chew. Refills: 0. omeprazole (omeprazole 40 mg oral delayed release capsule)1 cap by mouth two (2) times a day. before a meal.. Refills: 0. potassium chloride (Potassium Chloride (Eqv-K-Tab) 10 mEq oral tablet, extended release)1 tab(s) bymouth once a day. Refills: 3. pravastatin (pravastatin 40 mg oral tablet)1 tab(s) by mouth once a day. rivaroxaban (Xarelto 20 mg oral tablet)1 tab(s) by mouth daily at bedtime. Refills: 11. spironolactone (spironolactone 25 mg oral tablet)1 tab(s) by mouth once a day for 90 Days. Refills:3. tiZANidine (tiZANidine 2 mg oral tablet)1 tab(s) by mouth every 8 hours as needed as needed for muscle spasm for 7 Days. Refills: 3. traZODone (traZODone 100 mg oral tablet)1 tab(s) by mouth daily at bedtime. Refills: 2. Follow Up Follow Up with readmission score is 13 Follow Up with ISADORA CORREA When:Within 1-2 days Where:[address] [place] [address]- [phone] Business (1) Follow Up Appointments No qualifying data available. Follow Up Labs/Studies Discharge Labs No Follow-up Labs Discharge Studies No Follow-up Studies Discharge Diet No qualifying data available. Discharge Activity No qualifying data available. Readmission Risk/Palliative Score LACE Score: 13 (10/02/24 10:21:00) Palliative Total Score: 1 (10/02/24 10:21:00) Digitally Signed by DUSTIN RICHARD MD on 10/04/2024 12:27 PM [facility] [id number] Discharge summary Date of Service 10/04/2024 Discharge Diagnosis Paroxysmal atrial fibrillation Tachyarrhythmia induced cardiomyopathy Heart failure with improved EF (EF 30 to 35% in October 2022 to 55% in 2023) Moderate to severe LVH Mild pulmonary hypertension Severely dilated LA (LA 5.1 cm, DANIEL??) Obesity and KOFFI (intolerant to CPAP) Hypertension Diabetes mellitus Hospital Course CVC: Dr. Weber Past medical and cardiac history as in the assessment. 54-year-old male came in for frequent palpitations and shortness of breath for the last 3 days. Patient ran out of Tikosyn and Xarelto for a few days/weeks and started to feel symptoms. Patient denied recent weight gain, chest pain or discomfort, dyspnea, orthopnea, and PND. Also denied episode of lightheadedness, dizziness, patient with a syncope. Patient has been on Tikosyn and A-fib has been under control. Last cardioversion was in 2022. Patient was admitted and spontaneously converted back to sinus rhythm. EP team was consulted. Restarted the patient on Tikosyn. Echocardiogram was done and showed normal EF. Patient was euvolemic and no signs of heart failure. Completed 5 doses of Tikosyn with stable QTc. Patient will be discharged home today with plan for follow-up. Allergies Statins myalgia Consults Consult to Physician - Ordered -- 10/02/24 10:52:00 EDT, ARIEL ZIMMER MD, Routine, A fib, non-compliant, ? History of TACM, Ablation Consult to Spiritual Care Team (Consult to Pastoral Care) - Ordered -- 10/02/24 6:33:08 EDT Objective Vitals and Measurements T: 36.4 C (Oral) TMIN: 36.4 C (Oral) TMAX: 36.6 C (Oral) HR: 78 (Monitored) RR: 16 BP: 124/78 SpO2:92% WT: 142.1 kg Weight Current Weight Dosing Weight: 140.3 kg (10/02/24) Current Weight: 142.1 kg (10/04/24) Current Weight: 140.9 kg (10/03/24) General Appearance: Patient comfortably lying on bed, not in acute distress Head: Normocephalic, atraumatic EENT: PERRLA, Neck: Supple, no JVD, no mass Cardiac: s1s2,RRR, no murmurs or rubs or gallops Lungs: Clear to auscultation bilaterally, no wheeze or rhonchi or crackles Abdomen: Soft , Nontender, no organomegaly, bowel sounds heard Musculoskeletal: Full ROM , no gross deformities Extremities: No rash or ulcers or pedal edema Neurological: Alert, oriented x 3, grossly no focal neurological deficits Skin: No rash or ulcers Code Status Code Status - Ordered -- 10/02/24 6:33:00 EDT, Full Code, Constant Order Admission Date 10/02/2024 Discharge Date 10/04/2024 Medications Unchanged acetaminophen (Tylenol)by mouth as needed as needed for pain. albuterol (albuterol 2.5 mg/3 mL (0.083%) inhalation solution)3 Milliliter by inhalation every 6 hours. Refills: 0. allopurinol (allopurinol 100 mg oral tablet)1 tab(s) by mouth once a day. Refills: 3. bempedoic acid (Nexletol 180 mg oral tablet)1 tab(s) by mouth once a day. Refills: 5. budesonide-formoterol (Symbicort 80 mcg-4.5 mcg/inh Inhaler)2 puff(s) by inhalation two (2) times aday for 90 Days. Refills: 3. cetirizine (cetirizine 10 mg oral tablet)1 tab(s) by mouth every day for 90 Days. Refills: 3. dofetilide (Tikosyn 250 mcg oral capsule)1 cap by mouth two (2) times a day. Refills: 4. dulaglutide (Trulicity Pen 1.5 mg/0.5 mL subcutaneous solution)1.5 Milligram Subcutaneous every week for 90 Days. Refills: 3. DULoxetine (DULoxetine 20 mg oral delayed release capsule)1 cap by mouth once a day. furosemide (furosemide 20 mg oral tablet)1 tab(s) by mouth every day. Take 2 tablets daily for the first 3 days followed by 1 tablet daily.. Refills: 0. hydrOXYzine (Vistaril 25 mg oral capsule)1 cap by mouth four (4) times a day as needed as needed for anxiety for 30 Days. Refills: 3. metoprolol (Toprol-XL 100 mg oral tablet, extended release)1 tab(s) by mouth two (2) times a day for 90 Days. do not crush or chew. Refills: 0. omeprazole (omeprazole 40 mg oral delayed release capsule)1 cap by mouth two (2) times a day. before a meal.. Refills: 0. potassium chloride (Potassium Chloride (Eqv-K-Tab) 10 mEq oral tablet, extended release)1 tab(s) bymouth once a day. Refills: 3. pravastatin (pravastatin 40 mg oral tablet)1 tab(s) by mouth once a day. rivaroxaban (Xarelto 20 mg oral tablet)1 tab(s) by mouth daily at bedtime. Refills: 11. spironolactone (spironolactone 25 mg oral tablet)1 tab(s) by mouth once a day for 90 Days. Refills:3. tiZANidine (tiZANidine 2 mg oral tablet)1 tab(s) by mouth every 8 hours as needed as needed for muscle spasm for 7 Days. Refills: 3. traZODone (traZODone 100 mg oral tablet)1 tab(s) by mouth daily at bedtime. Refills: 2. Follow Up Follow Up with readmission score is 13 Follow Up with ISADORA CORREA When:Within 1-2 days Where:[address] [facility] [place] [address] [phone] Business (1) Follow Up Appointments No qualifying data available. Follow Up Labs/Studies Discharge Labs No Follow-up Labs Discharge Studies No Follow-up Studies Discharge Diet No qualifying data available. Discharge Activity No qualifying data available. Readmission Risk/Palliative Score LACE Score: 13 (10/02/24 10:21:00) Palliative Total Score: 1 (10/02/24 10:21:00) Digitally Signed by DUSTIN RICHARD MD on 10/04/2024 12:27 PM [facility] [id number] Cardiology Progress note Date of Service 10/03/2024 Subjective Patient is feeling well. No symptoms overnight. He denied chest pain, palpitations, dyspnea, orthopnea and PND. Objective Vitals and Measurements T: 36.6 C (Oral) TMIN: 36.4 C (Oral) TMAX: 36.8 C (Oral) HR: 63 RR: 20 BP: 110/78 SpO2: 91% WT: 140.9 kg Intake and Output 7AM Yesterday to 7AM Today Intake and Output (Last 24 hours) Intake Oral Intake 714.00 Administration Information 37.75 Output Urine Voided 250.00 Stool Count 0.00 Urine Count 3.00 Total Summary Total Intake 751.75 Total Output 250.00 Fluid Balance 501.75 Physical Exam General Appearance: Patient comfortably lying on bed, not in acute distress Head: Normocephalic, atraumatic EENT: PERRLA, Neck: Supple, no JVD, no mass Cardiac: s1s2,RRR, no murmurs or rubs or gallops Lungs: Clear to auscultation bilaterally, no wheeze or rhonchi or crackles Abdomen: Soft , Nontender, no organomegaly, bowel sounds heard Musculoskeletal: Full ROM , no gross deformities Extremities: No rash or ulcers or pedal edema Neurological: Alert, oriented x 3, grossly no focal neurological deficits Skin: No rash or ulcers Weight Current Weight Dosing Weight: 140.3 kg (10/02/24) Current Weight: 140.9 kg (10/03/24) Medications Medications (29) Active Scheduled: (14) albuterol 0.083% Soln UD (2.5mg/3 mL) 2.5 mg 3 mL, Inhalation, QIDRT allopurinol 100 mg tablet 100 mg 1 tab(s), Oral, qDay atorvastatin 10 mg tablet 10 mg 1 tab(s), Oral, qHS budesonide 0.25 mg/2 mL Susp UD 0.25 mg 2 mL, Inhalation, BIDRT dofetilide 250 mcg capsule 250 mcg 1 cap(s), Oral, q12h duloxetine [address] Capsule 20 mg 1 cap(s), Oral, qDay furosemide 20 mg tablet 20 mg 1 tab(s), Oral, Daily loratadine 10 mg Tablet 10 mg 1 tab(s), Oral, qDay metoprolol succinate 100 mg ER tablet 100 mg 1 tab(s), Oral, BID Misc communication order 1 EA, Miscellaneous, Daily Nexletol (Bempedoic Acid) 180 mg tablet 1 tab(s), Oral, Daily omeprazole [address] capsule 40 mg 1 cap(s), Oral, BID rivaroxaban 20 mg tablet 20 mg 1 tab(s), Oral, with supper traZODONE 100 mg Tablet 100 mg 1 tab(s), Oral, qHS Continuous: (0) PRN: (15) acetaminophen 325 mg Tablet 650 mg 2 tab(s), Oral, q4h albuterol - ipratropium 2.5 mg-0.5 mg/3 mL Inhal Lisa UD 3 mL, Inhalation, q4hRT dextrose 50% Solution Disp syringe 50 mL 25 gram(s) 50 mL, IV Push, As[employer] magnesium sulfate 4 gram(s)/100mL PMX 4 g 100 mL, IV Piggyback, AsDirected magnesium sulfate 50% (500mg/mL) 6 g 12 mL, IV Piggyback, AsDirected magnesium sulfate PMX 2 g 50 mL, IV Piggyback, AsDirected magnesium sulfate PMX 2 g 50 mL, IV Piggyback, As[employer]irected melatonin 3 mg tablet 3 mg 1 tab(s), Oral, qHS polyethylene glycol 3350 - UD packet 17 gram(s) 15 mL, Oral, qDay potassium bicarbonate-citric acid 20 mEq EFF tablet 40 mEq 2 tab(s), Oral, AsDirected potassium chloride (PMX) 20 mEq/100 mL 20 mEq 100 mL, IV Piggyback, As[employer]irected potassium chloride 20 mEq ER tablet 20 mEq 1 tab(s), Oral, AsDirected potassium chloride 20 mEq ER tablet 40 mEq 2 tab(s), Oral, AsDirected potassium chloride 20 mEq ER tablet 40 mEq 2 tab(s), Oral, AsDirected tiZANidine 2 mg tablet 2 mg 1 tab(s), Oral, q8h Lab Results 10/03 05:09 WBC: 4.2 L Hgb: 13.5 Hct: 41.1 Platelet: 136 L Neutrophil %: 68.4 Glucose Level: 109 Sodium Level: 137 Potassium Level: 3.5 BUN: 7.0 L Creatinine Lvl (s): 0.73 10/02 09:41 WBC: 6.6 Hgb: 15.6 Hct: 47.4 Platelet: 139 L Neutrophil %: 70.3 Protime: 13.4 PT International Ratio: 1.2 Glucose Level: 109 Sodium Level: 139 Potassium Level: 3.5 BUN: 11.0 Creatinine Lvl (s): 0.71 EKG EKG - Discontinued -- 10/02/24 6:33:00 EDT Electrocardiogram (EKG) - InProcess -- 10/02/24 13:39:00 EDT Electrocardiogram (EKG) - Ordered -- 10/02/24 14:31:00 EDT, STAT on Admission, Complete by Nursing Electrocardiogram (EKG) - InProcess -- 10/02/24 22:00:00 EDT Electrocardiogram (EKG) - InProcess -- 10/03/24 10:00:00 EDT Assessment/Plan Paroxysmal atrial fibrillation Tachyarrhythmia induced cardiomyopathy Heart failure with improved EF (EF 30 to 35% in October 2022 to 55% in 2023) Moderate to severe LVH Mild pulmonary hypertension Severely dilated LA (LA 5.1 cm, DANIEL??) Obesity and KOFFI (intolerant to CPAP) Hypertension Diabetes mellitus Patient spontaneously converted back to sinus rhythm yesterday. EP team started the patient on Tikosyn. QT earlier this morning. Continue Tikosyn loading. Currently anticoagulated with Xarelto. If appropriate by primary care/psychiatry, alternate medication for trazodone is recommended to avoid QT prolongation. Euvolemic on physical exam. No signs of acute heart failure. Repeat echocardiogram. D/c after the fifth dose of Tikossyn. Digitally Signed by DUSTIN RICHARD MD on 10/03/2024 01:50 PM [facility] [id number] Note* Exam Date Time Procedure Performing Provider Status 10/03/24 10:08 PM Electrocardiogram - EKG - CV JOHNIE VELÁZQUEZ MD; Auth (Verified) ECG Final Report SINUS RHYTHM LEFT AXIS DEVIATION LOW VOLTAGE, PRECORDIAL LEADS Electronic Signature: JOHNIE VELÁZQUEZ MD 10/04/2024 21:58:08 [facility] [id number] Note* Exam Date Time Procedure Performing Provider Status 10/03/24 4:01 PM Echocardiogram, Adult - CV ALIZA PAULINO MD; Auth (Verified) [facility] [id number] Cardiology Progress note Date of Service 10/03/2024 Subjective Patient is feeling well. No symptoms overnight. He denied chest pain, palpitations, dyspnea, orthopnea and PND. Objective Vitals and Measurements T: 36.6 C (Oral) TMIN: 36.4 C (Oral) TMAX: 36.8 C (Oral) HR: 63 RR: 20 BP: 110/78 SpO2: 91% WT: 140.9 kg Intake and Output 7AM Yesterday to 7AM Today Intake and Output (Last 24 hours) Intake Oral Intake 714.00 Administration Information 37.75 Output Urine Voided 250.00 Stool Count 0.00 Urine Count 3.00 Total Summary Total Intake 751.75 Total Output 250.00 Fluid Balance 501.75 Physical Exam General Appearance: Patient comfortably lying on bed, not in acute distress Head: Normocephalic, atraumatic EENT: PERRLA, Neck: Supple, no JVD, no mass Cardiac: s1s2,RRR, no murmurs or rubs or gallops Lungs: Clear to auscultation bilaterally, no wheeze or rhonchi or crackles Abdomen: Soft , Nontender, no organomegaly, bowel sounds heard Musculoskeletal: Full ROM , no gross deformities Extremities: No rash or ulcers or pedal edema Neurological: Alert, oriented x 3, grossly no focal neurological deficits Skin: No rash or ulcers Weight Current Weight Dosing Weight: 140.3 kg (10/02/24) Current Weight: 140.9 kg (10/03/24) Medications Medications (29) Active Scheduled: (14) albuterol 0.083% Soln UD (2.5mg/3 mL) 2.5 mg 3 mL, Inhalation, QIDRT allopurinol 100 mg tablet 100 mg 1 tab(s), Oral, qDay atorvastatin 10 mg tablet 10 mg 1 tab(s), Oral, qHS budesonide 0.25 mg/2 mL Susp UD 0.25 mg 2 mL, Inhalation, BIDRT dofetilide 250 mcg capsule 250 mcg 1 cap(s), Oral, q12h duloxetine [address] Capsule 20 mg 1 cap(s), Oral, qDay furosemide 20 mg tablet 20 mg 1 tab(s), Oral, Daily loratadine 10 mg Tablet 10 mg 1 tab(s), Oral, qDay metoprolol succinate 100 mg ER tablet 100 mg 1 tab(s), Oral, BID Misc communication order 1 EA, Miscellaneous, Daily Nexletol (Bempedoic Acid) 180 mg tablet 1 tab(s), Oral, Daily omeprazole [address] capsule 40 mg 1 cap(s), Oral, BID rivaroxaban 20 mg tablet 20 mg 1 tab(s), Oral, with supper traZODONE 100 mg Tablet 100 mg 1 tab(s), Oral, qHS Continuous: (0) PRN: (15) acetaminophen 325 mg Tablet 650 mg 2 tab(s), Oral, q4h albuterol - ipratropium 2.5 mg-0.5 mg/3 mL Inhal Lisa UD 3 mL, Inhalation, q4hRT dextrose 50% Solution Disp syringe 50 mL 25 gram(s) 50 mL, IV Push, AsDirected magnesium sulfate 4 gram(s)/100mL PMX 4 g 100 mL, IV Piggyback, AsDirected magnesium sulfate 50% (500mg/mL) 6 g 12 mL, IV Piggyback, AsDirected magnesium sulfate PMX 2 g 50 mL, IV Piggyback, AsDirected magnesium sulfate PMX 2 g 50 mL, IV Piggyback, AsDirected melatonin 3 mg tablet 3 mg 1 tab(s), Oral, qHS polyethylene glycol 3350 - UD packet 17 gram(s) 15 mL, Oral, qDay potassium bicarbonate-citric acid 20 mEq EFF tablet 40 mEq 2 tab(s), Oral, AsDirected potassium chloride (PMX) 20 mEq/100 mL 20 mEq 100 mL, IV Piggyback, AsDirected potassium chloride 20 mEq ER tablet 20 mEq 1 tab(s), Oral, AsDirected potassium chloride 20 mEq ER tablet 40 mEq 2 tab(s), Oral, AsDirected potassium chloride 20 mEq ER tablet 40 mEq 2 tab(s), Oral, AsDirected tiZANidine 2 mg tablet 2 mg 1 tab(s), Oral, q8h Lab Results 10/03 05:09 WBC: 4.2 L Hgb: 13.5 Hct: 41.1 Platelet: 136 L Neutrophil %: 68.4 Glucose Level: 109 Sodium Level: 137 Potassium Level: 3.5 BUN: 7.0 L Creatinine Lvl (s): 0.73 10/02 09:41 WBC: 6.6 Hgb: 15.6 Hct: 47.4 Platelet: 139 L Neutrophil %: 70.3 Protime: 13.4 PT International Ratio: 1.2 Glucose Level: 109 Sodium Level: 139 Potassium Level: 3.5 BUN: 11.0 Creatinine Lvl (s): 0.71 EKG EKG - Discontinued -- 10/02/24 6:33:00 EDT Electrocardiogram (EKG) - InProcess -- 10/02/24 13:39:00 EDT Electrocardiogram (EKG) - Ordered -- 10/02/24 14:31:00 EDT, STAT on Admission, Complete by Nursing Electrocardiogram (EKG) - InProcess -- 10/02/24 22:00:00 EDT Electrocardiogram (EKG) - InProcess -- 10/03/24 10:00:00 EDT Assessment/Plan Paroxysmal atrial fibrillation Tachyarrhythmia induced cardiomyopathy Heart failure with improved EF (EF 30 to 35% in October 2022 to 55% in 2023) Moderate to severe LVH Mild pulmonary hypertension Severely dilated LA (LA 5.1 cm, DANIEL??) Obesity and KOFFI (intolerant to CPAP) Hypertension Diabetes mellitus Patient spontaneously converted back to sinus rhythm yesterday. EP team started the patient on Tikosyn. QT earlier this morning. Continue Tikosyn loading. Currently anticoagulated with Xarelto. If appropriate by primary care/psychiatry, alternate medication for trazodone is recommended to avoid QT prolongation. Euvolemic on physical exam. No signs of acute heart failure. Repeat echocardiogram. D/c after the fifth dose of Tikossyn. Digitally Signed by DUSTIN RICHARD MD on 10/03/2024 01:50 PM [id number] Note* Exam Date Time Procedure Performing Provider Status 10/03/24 10:03 AM Electrocardiogram - EKG - CV JOHNIE VELÁZQUEZ MD; Auth (Verified) ECG Final Report SINUS RHYTHM LOW VOLTAGE, PRECORDIAL LEADS CONSIDER ANTERIOR INFARCT Electronic Signature: JOHNIE VELÁZQUEZ MD 10/04/2024 21:57:56 [facility] [id number] Note* Exam Date Time Procedure Performing Provider Status 10/02/24 10:04 PM Electrocardiogram - EKG - CV JOHNIE VELÁZQUEZ MD; Auth (Verified) ECG Final Report SINUS RHYTHM LEFT ANTERIOR FASCICULAR BLOCK PROLONGED QT INTERVAL Electronic Signature: JOHNIE VELÁZQUEZ MD 10/03/2024 19:52:07 [facility] [id number] History and physical note Date of Service 10/02/2024 Chief Complaint Palpitations and shortness of breath History of Present Illness CVC: Dr. Weber Past medical and cardiac history as in the assessment. 54-year-old male came in for frequent palpitations and shortness of breath for the last 3 days. Patient ran out of Tikosyn and Xarelto for a few days/weeks and started to feel symptoms. Patient denied recent weight gain, chest pain or discomfort, dyspnea, orthopnea, and PND. Also denied episode of lightheadedness, dizziness, patient with a syncope. Patient has been on Tikosyn and A-fib has been under control. Last cardioversion was in 2022. At the time of examination, patient was asymptomatic. Review of Systems Constitutional: denies Fevers and chills , no loss of appetite, denies fatigue or weight change Eyes: Denies double vision/blurring of vision/flashes or floaters Ears, Nose, Mouth & Throat: Denies any tinnitus/hearing loss/sinus congestion/nasal discharge/sore throat Respiratory: Denies any shortness of breath/cough/productive sputum/hemoptysis Gastrointestinal: Denies any abdominal pain/nausea/vomiting/diarrhea/hematochezia/hematemesis/melena Genitourinary: Denies any dysuria/hematuria Musculoskeletal: denies joint pain or joint swelling or deformities Skin: No ulcers or rash Neurological: denies Weakness or numbness of extremities/facial droop/loss of balance Endocrine: Denies any heat or cold intolerance/polyuria/polydipsia/polyphagia Hematologic/Lymphatic: denies lymphadenopathy Allergic/Immunologic: Denies any seasonal allergy/sneezing/tearing from the eyes Physical Exam Vitals and Measurements Weight Dosing Weight: 140.3 kg (10/02/24) General Appearance: Patient comfortably lying on bed, not in acute distress Head: Normocephalic, atraumatic EENT: PERRLA, Neck: Supple, no JVD, no mass Cardiac: s1s2,RRR, no murmurs or rubs or gallops Lungs: Clear to auscultation bilaterally, no wheeze or rhonchi or crackles Abdomen: Soft , Nontender, no organomegaly, bowel sounds heard Musculoskeletal: Full ROM , no gross deformities Extremities: No rash or ulcers or pedal edema Neurological: Alert, oriented x 3, grossly no focal neurological deficits Skin: No rash or ulcers Lab Results 10/02 09:41 WBC: 6.6 Hgb: 15.6 Hct: 47.4 Platelet: 139 L Neutrophil %: 70.3 Protime: 13.4 PT International Ratio: 1.2 Glucose Level: 109 Sodium Level: 139 Potassium Level: 3.5 BUN: 11.0 Creatinine Lvl (s): 0.71 Assessment/Plan Paroxysmal atrial fibrillation Tachyarrhythmia induced cardiomyopathy Heart failure with improved EF (EF 30 to 35% in October 2022 to 55% in 2023) Moderate to severe LVH Mild pulmonary hypertension Severely dilated LA (LA 5.1 cm, DANIEL??) Obesity and KOFFI (intolerant to CPAP) Hypertension Diabetes mellitus Patient is currently in in [facility]. Rate is relatively well-controlled. Continue Cardizem drip. Plan for NELDA and cardioversion tomorrow. Will start the patient on short-term amiodarone after NELDA. Consult EP for consideration of A-fib ablation. Continue heparin by weight for now. Resume Xarelto from this evening. Euvolemic on physical exam. No signs of acute heart failure. Repeat echocardiogram after cardioversion. Problem List/Past Medical History Ongoing Asthma exacerbation Atopic dermatitis Atypical chest pain BMI 45.0-49.9, adult Bronchitis Cardiomyopathy Chewing tobacco nicotine dependence COPD exacerbation Cough Dental abscess Depression Dyspnea Generalized anxiety disorder Hypertension associated with type 2 diabetes mellitus Insomnia LVH (left ventricular hypertrophy) Moderate asthma Morbid obesity Near syncope KOFFI (obstructive sleep apnea) Paroxysmal atrial fibrillation Right knee pain Screening for colon cancer Screening for ischemic heart disease Statin intolerance Type 2 diabetes mellitus with hemoglobin A1c goal of less than 7.0% Type 2 diabetes mellitus with hyperlipidemia Historical Anxiety Diabetes mellitus Hyperlipidemia Hypertension Mass of arm Obstructive sleep apnea Prediabetes Right flank pain Procedure/Surgical History Excision: 03/25/24 Echocardiogram: 01/31/24 Cardioversion: 12/23/22 Echocardiogram: 11/11/22 Elbow Medications Home Medications (19) Active albuterol 2.5 mg/3 mL (0.083%) inhalation solution 2.5 mg = 3 mL, Inhalation, q6h allopurinol 100 mg oral tablet 100 mg = 1 tab(s), Oral, qDay cetirizine 10 mg oral tablet 10 mg = 1 tab(s), Oral, Daily DULoxetine 20 mg oral delayed release capsule 20 mg = 1 cap(s), Oral, qDay furosemide 20 mg oral tablet 20 mg = 1 tab(s), Oral, Daily Nexletol 180 mg oral tablet 180 mg = 1 tab(s), Oral, qDay omeprazole 40 mg oral delayed release capsule 40 mg = 1 cap(s), Oral, BID Potassium Chloride (Eqv-K-Tab) 10 mEq oral tablet, extended release 10 mEq = 1 tab(s), Oral, qDay pravastatin 40 mg oral tablet 40 mg = 1 tab(s), Oral, qDay spironolactone 25 mg oral tablet 25 mg = 1 tab(s), Oral, qDay Symbicort 80 mcg-4.5 mcg/inh Inhaler 2 puff(s), Inhalation, BID Tikosyn 250 mcg oral capsule 250 mcg = 1 cap(s), Oral, BID tiZANidine 2 mg oral tablet 2 mg = 1 tab(s), PRN, Oral, q8h Toprol-XL 100 mg oral tablet, extended release 100 mg = 1 tab(s), Oral, BID traZODone 100 mg oral tablet 100 mg = 1 tab(s), Oral, qHS Trulicity Pen 1.5 mg/0.5 mL subcutaneous solution 1.5 mg, Subcutaneous, qWeek Tylenol , PRN, Oral Vistaril 25 mg oral capsule 25 mg = 1 cap(s), PRN, Oral, QID Xarelto 20 mg oral tablet 20 mg = 1 tab(s), Oral, qHS Allergies Statins myalgia Social History Alcohol Use: Past., 07/11/2022 Nutrition/Health Caffeine intake amount: pop 3 daily., 11/08/2022 Substance Abuse Use: Never., 07/11/2022 Tobacco Nicotine Use: Former smoker, quit more than 30 days ago, former chewer of tobacco. Type: Oral (Snuff, Chew). Smokeless Tobacco Use: Former smokeless tobacco user, quit more than 30 days ago, stopped snuff October 2022., 01/12/2024 Nicotine Use: Former smoker, quit more than 30 days ago., 07/11/2022 Family History Cancer: Father. Heart disease: Mother and Grandparent. Stroke: Father. Health Status Family Member(s) Immunizations pneumococcal 13-valent conjugate vaccine: 0.5 unknown unit (04/12/22) SARS-CoV-2 (COVID-19) mRNA-1273 vaccine: 0 unknown unit (09/11/20) SARS-CoV-2 (COVID-19) mRNA-1273 vaccine: 0 unknown unit (08/14/20) Code Status Code Status - Ordered -- 10/02/24 6:33:00 EDT, Full Code, Constant Order Digitally Signed by DUSTIN RICHARD MD on 10/02/2024 12:42 PM Digitally Signed by DUSTIN RICHARD MD on 10/02/2024 03:28 PM [facility] [id number] Note Date of Service October 02, 2024 Shared/Split visit with Dr. Dickson Shook - Dr. Weber Reason for Consultation AF -> Tikosyn re-loading Referring Physician Gen Shook History of Present Illness This is a 54-year-old male with a known history of atrial fibrillation followed by Dr. Weber from our group. Patient was being treated for atrial fibrillation with Tikosyn and Xarelto. However with the passing of his he missed several doses. And came back in atrial fibrillation. Patient was placed on Cardizem. At approximately 1326 the patient converted to normal sinus rhythm. Cardizem drip was discontinued. Patient was placed on original dose of Tikosyn and Xarelto. Past medical history is significant for 1. Persistent AF 2. Tachycardia mediated cardiomyopathy 3. Severe LVH 4. Obstructive sleep apnea 5. Morbid obesity. Echocardiogram completed January 31, 2024 demonstrates an EF at 52%. Today, we will discontinue cardioversion/NELDA order. Cardizem has also been turned off. Patient will be initiated on Tikosyn at 8:00 tonight. Will continue with Tikosyn loading. All risk first benefit of reinitiation of Tikosyn was discussed in detail. Patient is understandingagreeable to remain compliant. On interview the patient notes he is feeling well now he is back in normal sinus rhythm. He reportswhile he is in A-fib he has increased amount of shortness of breath, tachycardia and palpitations. Continue to monitor. Continue to watch QTc. Review of Systems Pertinent positives per HPI all other systems reviewed and negative. Physical Exam Vitals and Measurements Weight Dosing Weight: 140.3 kg (10/02/24) General - 54 yr old male appearing stated age - well nourished well developed HEENT - head normocephalic, atraumatic. Pupils equal reactive to light. Nose patent bilaterally. Oropharynx without erythema or exudate. Neck -supple, full range of motion. No carotid bruits noted. Cardiovascular - Regular rate and rhythm. No significant murmurs appreciated. Lungs - clear to auscultation bilaterally. Abdomen - soft, nontender. Bowel sounds present in all 4 quadrants. Musculoskeletal -full weightbearing. Full range of motion in all extremities. Skin -intact, no lesions or rashes noted. Neurological - cranial nerves grossly intact. Mood and affect appropriate to situation. Peripheral vascular - No pitting edema Lab Results 10/02 09:41 WBC: 6.6 Hgb: 15.6 Hct: 47.4 Platelet: 139 L Neutrophil %: 70.3 Protime: 13.4 PT International Ratio: 1.2 Glucose Level: 109 Sodium Level: 139 Potassium Level: 3.5 BUN: 11.0 Creatinine Lvl (s): 0.71 Assessment/Plan Orders: .PharmacyCommunication(Dofetilide Pharmacy Information), 1 EA, Miscellaneous, Daily dofetilide(Tikosyn), 250 mcg= 1 cap(s), Oral, q12h magnesium sulfate(magnesium sulfate for IV bolus), 2 gram(s), IV Piggyback, AsDirected, PRN potassium bicarbonate(Effer-K 20 mEq oral tablet, effervescent), 40 mEq= 2 tab(s), Oral, AsDirected, PRN Call Parameters, 10/02/24 14:31:00 EDT, If the QTc/QTcB >500ms at any time after the second dose, discontinue dofetilide and CALL prescribing physician, Constant order Communication Order (continuous), 10/02/24 14:31:00 EDT, Call physician if less than 6 EKG's have been completed prior to discharge, contact physician for further orders., Constant order Communication Order (continuous), 10/02/24 14:31:00 EDT, Call physician if potassium level is 3.0 mEq/L and see potassium replacement orders, Constant order Communication Order (continuous), 10/02/24 14:31:00 EDT, Call physicain if magnesium level is less than 1.5 mg/dL and see magnesium replacement, Constant order Communication Order (scheduled), 10/02/24 9:00:00 EDT, q12hr, Enter EKG order to be done 2 hours after EACH dose Complete EKG, 10/02/24 14:31:00 EDT, 10/02/24 14:31:00 EDT, STAT on Admission Complete Metabolic Panel(CMP), 10/03/24 5:00:00 EDT, Next AM Draw (one day only), Blood, Once, Nurse Collect, Preferred Lab: [facility], Stop date 10/03/24 5:00:00 EDT Electrocardiogram(EKG), 10/02/24 14:31:00 EDT, STAT on Admission, Complete by Nursing Patient Education, 10/02/24 14:31:00 EDT, Once, Give patient the Dofetilide Handout 1. Persistent AF Reoccurring persistent AF. Patient was maintained normal sinus rhythm on Tikosyn. However he missed several doses secondary tothe passing of his . Patient spontaneously converted on his own with Cardizem. Patient will be started back on his home dose of Tikosyn at 250 mcg twice daily. Will start 8 and 8). All risk first benefit and compliance was stressed in detail to the patient. He is understanding agreeable. Consideration of outpatient ablative therapies after the patient remains on her medical therapy. And was for with lifestyle modifications including weight loss. Patient will follow-up as an outpatient for further evaluation. At this time, continue to load Tikosyn. Continue to monitor QTc. Keeping potassium at 4, magnesium at 2 2. Tachycardia mediated cardiomyopathy Last known EF 52%. continue to monitor. Remain on maximally tolerated goal-directed medical therapy. 3. Severe LVH Noted. Continue to monitor blood pressure. Continue to follow general cardiology 4. Obstructive sleep apnea Sleep study is recommended. 5. Morbid obesity. Weight loss is recommended. Problem List/Past Medical History Ongoing Asthma exacerbation Atopic dermatitis Atypical chest pain BMI 45.0-49.9, adult Bronchitis Cardiomyopathy Chewing tobacco nicotine dependence COPD exacerbation Cough Dental abscess Depression Dyspnea Generalized anxiety disorder Hypertension associated with type 2 diabetes mellitus Insomnia LVH (left ventricular hypertrophy) Moderate asthma Morbid obesity Near syncope KOFFI (obstructive sleep apnea) Paroxysmal atrial fibrillation Right knee pain Screening for colon cancer Screening for ischemic heart disease Statin intolerance Type 2 diabetes mellitus with hemoglobin A1c goal of less than 7.0% Type 2 diabetes mellitus with hyperlipidemia Historical Anxiety Diabetes mellitus Hyperlipidemia Hypertension Mass of arm Obstructive sleep apnea Prediabetes Right flank pain Procedure/Surgical History Excision: 03/25/24 Echocardiogram: 01/31/24 Cardioversion: 12/23/22 Echocardiogram: 11/11/22 Elbow Medications Inpatient albuterol 2.5 mg/3 mL (0.083%) inhalation solution, 2.5 mg= 3 mL, Inhalation, QIDRT allopurinol, 100 mg= 1 tab(s), Oral, qDay atorvastatin, 10 mg= 1 tab(s), Oral, qHS Dextrose 50% IV Push, 25 gram(s)= 50 mL, IV Push, AsDirected, PRN Dofetilide Pharmacy Information, 1 EA, Miscellaneous, Daily DULoxetine, 20 mg= 1 cap(s), Oral, qDay DuoNeb, 3 mL, Inhalation, q4hRT, PRN Effer-K 20 mEq oral tablet, effervescent, 40 mEq= 2 tab(s), Oral, AsDirected, PRN furosemide, 20 mg= 1 tab(s), Oral, Daily loratadine, 10 mg= 1 tab(s), Oral, qDay magnesium sulfate for IV bolus, 2 gram(s)= 50 mL, IV Piggyback, AsDirected, PRN magnesium sulfate for IV bolus, 4 gram(s)= 100 mL, IV Piggyback, AsDirected, PRN magnesium sulfate for IV bolus magnesium sulfate for IV bolus, 2 gram(s), IV Piggyback, AsDirected, PRN melatonin, 3 mg= 1 tab(s), Oral, qHS, PRN Miralax Powder Packet, 17 gram(s)= 15 mL, Oral, qDay, PRN Nexletol (Bempedoic Acid) 180 mg tablet, 1 tab(s), Oral, Daily omeprazole, 40 mg= 1 cap(s), Oral, BID potassium chloride, 20 mEq= 1 tab(s), Oral, AsDirected, PRN potassium chloride, 40 mEq= 2 tab(s), Oral, AsDirected, PRN potassium chloride, 40 mEq= 2 tab(s), Oral, AsDirected, PRN potassium chloride bolus, 20 mEq= 100 mL, IV Piggyback, AsDirected, PRN Pulmicort Respules 0.25 mg/2 mL inhalation suspension, 0.25 mg= 2 mL, Inhalation, BIDRT rivaroxaban, 20 mg= 1 tab(s), Oral, with supper Tikosyn, 250 mcg= 1 cap(s), Oral, q12h tiZANidine, 2 mg= 1 tab(s), Oral, q8h, PRN Toprol-XL, 100 mg= 1 tab(s), Oral, BID traZODone, 100 mg= 1 tab(s), Oral, qHS Tylenol, 650 mg= 2 tab(s), Oral, q4h, PRN Home albuterol 2.5 mg/3 mL (0.083%) inhalation solution, 2.5 mg= 3 mL, Inhalation, q6h allopurinol 100 mg oral tablet, 100 mg= 1 tab(s), Oral, qDay, 3 refills cetirizine 10 mg oral tablet, 10 mg= 1 tab(s), Oral, Daily, 3 refills DULoxetine 20 mg oral delayed release capsule, 20 mg= 1 cap(s), Oral, qDay furosemide 20 mg oral tablet, 20 mg= 1 tab(s), Oral, Daily Nexletol 180 mg oral tablet, 180 mg= 1 tab(s), Oral, qDay, 5 refills omeprazole 40 mg oral delayed release capsule, 40 mg= 1 cap(s), Oral, BID Potassium Chloride (Eqv-K-Tab) 10 mEq oral tablet, extended release, 10 mEq= 1 tab(s), Oral, qDay, 3 refills pravastatin 40 mg oral tablet, 40 mg= 1 tab(s), Oral, qDay spironolactone 25 mg oral tablet, 25 mg= 1 tab(s), Oral, qDay, 3 refills Symbicort 80 mcg-4.5 mcg/inh Inhaler, 2 puff(s), Inhalation, BID, 3 refills Tikosyn 250 mcg oral capsule, 250 mcg= 1 cap(s), Oral, BID, 1 refills tiZANidine 2 mg oral tablet, 2 mg= 1 tab(s), Oral, q8h, PRN, 3 refills Toprol-XL 100 mg oral tablet, extended release, 100 mg= 1 tab(s), Oral, BID traZODone 100 mg oral tablet, 100 mg= 1 tab(s), Oral, qHS, 2 refills Trulicity Pen 1.5 mg/0.5 mL subcutaneous solution, 1.5 mg, Subcutaneous, qWeek, 3 refills Tylenol, Oral, PRN Vistaril 25 mg oral capsule, 25 mg= 1 cap(s), Oral, QID, PRN, 3 refills Xarelto 20 mg oral tablet, 20 mg= 1 tab(s), Oral, qHS, 3 refills Allergies Statins myalgia Social History Alcohol Use: Past., 07/11/2022 Nutrition/Health Caffeine intake amount: pop 3 daily., 11/08/2022 Substance Abuse Use: Never., 07/11/2022 Tobacco Nicotine Use: Former smoker, quit more than 30 days ago, former chewer of tobacco. Type: Oral (Snuff, Chew). Smokeless Tobacco Use: Former smokeless tobacco user, quit more than 30 days ago, stopped snuff October 2022., 01/12/2024 Nicotine Use: Former smoker, quit more than 30 days ago., 07/11/2022 Family History Cancer: Father. Heart disease: Mother and Grandparent. Stroke: Father. Health Status Family Member(s) Immunizations pneumococcal 13-valent conjugate vaccine: 0.5 unknown unit (04/12/22) SARS-CoV-2 (COVID-19) mRNA-1273 vaccine: 0 unknown unit (09/11/20) SARS-CoV-2 (COVID-19) mRNA-1273 vaccine: 0 unknown unit (08/14/20) Digitally Signed by MARILUZ BUI on 10/02/2024 02:36 PM [id number] Note Date of Service October 02, 2024 Shared/Split visit with Dr. Dickson Shook - Dr. Weber Reason for Consultation AF -> Tikosyn re-loading Referring Physician Gen Shook History of Present Illness This is a 54-year-old male with a known history of atrial fibrillation followed by Dr. Weber from our group. Patient was being treated for atrial fibrillation with Tikosyn and Xarelto. However with the passing of his he missed several doses. And came back in atrial fibrillation. Patient was placed on Cardizem. At approximately 1326 the patient converted to normal sinus rhythm. Cardizem drip was discontinued. Patient was placed on original dose of Tikosyn and Xarelto. Past medical history is significant for 1. Persistent AF 2. Tachycardia mediated cardiomyopathy 3. Severe LVH 4. Obstructive sleep apnea 5. Morbid obesity. Echocardiogram completed January 31, 2024 demonstrates an EF at 52%. Today, we will discontinue cardioversion/NELDA order. Cardizem has also been turned off. Patient will be initiated on Tikosyn at 8:00 tonight. Will continue with Tikosyn loading. All risk first benefit of reinitiation of Tikosyn was discussed in detail. Patient is understandingagreeable to remain compliant. On interview the patient notes he is feeling well now he is back in normal sinus rhythm. He reportswhile he is in A-fib he has increased amount of shortness of breath, tachycardia and palpitations. Continue to monitor. Continue to watch QTc. Review of Systems Pertinent positives per HPI all other systems reviewed and negative. Physical Exam Vitals and Measurements Weight Dosing Weight: 140.3 kg (10/02/24) General - 54 yr old male appearing stated age - well nourished well developed HEENT - head normocephalic, atraumatic. Pupils equal reactive to light. Nose patent bilaterally. Oropharynx without erythema or exudate. Neck -supple, full range of motion. No carotid bruits noted. Cardiovascular - Regular rate and rhythm. No significant murmurs appreciated. Lungs - clear to auscultation bilaterally. Abdomen - soft, nontender. Bowel sounds present in all 4 quadrants. Musculoskeletal -full weightbearing. Full range of motion in all extremities. Skin -intact, no lesions or rashes noted. Neurological - cranial nerves grossly intact. Mood and affect appropriate to situation. Peripheral vascular - No pitting edema Lab Results 10/02 09:41 WBC: 6.6 Hgb: 15.6 Hct: 47.4 Platelet: 139 L Neutrophil %: 70.3 Protime: 13.4 PT International Ratio: 1.2 Glucose Level: 109 Sodium Level: 139 Potassium Level: 3.5 BUN: 11.0 Creatinine Lvl (s): 0.71 Assessment/Plan Orders: .PharmacyCommunication(Dofetilide Pharmacy Information), 1 EA, Miscellaneous, Daily dofetilide(Tikosyn), 250 mcg= 1 cap(s), Oral, q12h magnesium sulfate(magnesium sulfate for IV bolus), 2 gram(s), IV Piggyback, AsDirected, PRN potassium bicarbonate(Effer-K 20 mEq oral tablet, effervescent), 40 mEq= 2 tab(s), Oral, AsDirected, PRN Call Parameters, 10/02/24 14:31:00 EDT, If the QTc/QTcB >500ms at any time after the second dose, discontinue dofetilide and CALL prescribing physician, Constant order Communication Order (continuous), 10/02/24 14:31:00 EDT, Call physician if less than 6 EKG's have been completed prior to discharge, contact physician for further orders., Constant order Communication Order (continuous), 10/02/24 14:31:00 EDT, Call physician if potassium level is 3.0 mEq/L and see potassium replacement orders, Constant order Communication Order (continuous), 10/02/24 14:31:00 EDT, Call physicain if magnesium level is less than 1.5 mg/dL and see magnesium replacement, Constant order Communication Order (scheduled), 10/02/24 9:00:00 EDT, q12hr, Enter EKG order to be done 2 hours after EACH dose Complete EKG, 10/02/24 14:31:00 EDT, 10/02/24 14:31:00 EDT, STAT on Admission Complete Metabolic Panel(CMP), 10/03/24 5:00:00 EDT, Next AM Draw (one day only), Blood, Once, Nurse Collect, Preferred Lab: [facility], Stop date 10/03/24 5:00:00 EDT Electrocardiogram(EKG), 10/02/24 14:31:00 EDT, STAT on Admission, Complete by Nursing Patient Education, 10/02/24 14:31:00 EDT, Once, Give patient the Dofetilide Handout 1. Persistent AF Reoccurring persistent AF. Patient was maintained normal sinus rhythm on Tikosyn. However he missed several doses secondary tothe passing of his . Patient spontaneously converted on his own with Cardizem. Patient will be started back on his home dose of Tikosyn at 250 mcg twice daily. Will start 8 and 8). All risk first benefit and compliance was stressed in detail to the patient. He is understanding agreeable. Consideration of outpatient ablative therapies after the patient remains on her medical therapy. And was for with lifestyle modifications including weight loss. Patient will follow-up as an outpatient for further evaluation. At this time, continue to load Tikosyn. Continue to monitor QTc. Keeping potassium at 4, magnesium at 2 2. Tachycardia mediated cardiomyopathy Last known EF 52%. continue to monitor. Remain on maximally tolerated goal-directed medical therapy. 3. Severe LVH Noted. Continue to monitor blood pressure. Continue to follow general cardiology 4. Obstructive sleep apnea Sleep study is recommended. 5. Morbid obesity. Weight loss is recommended. Problem List/Past Medical History Ongoing Asthma exacerbation Atopic dermatitis Atypical chest pain BMI 45.0-49.9, adult Bronchitis Cardiomyopathy Chewing tobacco nicotine dependence COPD exacerbation Cough Dental abscess Depression Dyspnea Generalized anxiety disorder Hypertension associated with type 2 diabetes mellitus Insomnia LVH (left ventricular hypertrophy) Moderate asthma Morbid obesity Near syncope KOFFI (obstructive sleep apnea) Paroxysmal atrial fibrillation Right knee pain Screening for colon cancer Screening for ischemic heart disease Statin intolerance Type 2 diabetes mellitus with hemoglobin A1c goal of less than 7.0% Type 2 diabetes mellitus with hyperlipidemia Historical Anxiety Diabetes mellitus Hyperlipidemia Hypertension Mass of arm Obstructive sleep apnea Prediabetes Right flank pain Procedure/Surgical History Excision: 03/25/24 Echocardiogram: 01/31/24 Cardioversion: 12/23/22 Echocardiogram: 11/11/22 Elbow Medications Inpatient albuterol 2.5 mg/3 mL (0.083%) inhalation solution, 2.5 mg= 3 mL, Inhalation, QIDRT allopurinol, 100 mg= 1 tab(s), Oral, qDay atorvastatin, 10 mg= 1 tab(s), Oral, qHS Dextrose 50% IV Push, 25 gram(s)= 50 mL, IV Push, AsDirected, PRN Dofetilide Pharmacy Information, 1 EA, Miscellaneous, Daily DULoxetine, 20 mg= 1 cap(s), Oral, qDay DuoNeb, 3 mL, Inhalation, q4hRT, PRN Effer-K 20 mEq oral tablet, effervescent, 40 mEq= 2 tab(s), Oral, AsDirected, PRN furosemide, 20 mg= 1 tab(s), Oral, Daily loratadine, 10 mg= 1 tab(s), Oral, qDay magnesium sulfate for IV bolus, 2 gram(s)= 50 mL, IV Piggyback, AsDirected, PRN magnesium sulfate for IV bolus, 4 gram(s)= 100 mL, IV Piggyback, AsDirected, PRN magnesium sulfate for IV bolus magnesium sulfate for IV bolus, 2 gram(s), IV Piggyback, AsDirected, PRN melatonin, 3 mg= 1 tab(s), Oral, qHS, PRN Miralax Powder Packet, 17 gram(s)= 15 mL, Oral, qDay, PRN Nexletol (Bempedoic Acid) 180 mg tablet, 1 tab(s), Oral, Daily omeprazole, 40 mg= 1 cap(s), Oral, BID potassium chloride, 20 mEq= 1 tab(s), Oral, AsDirected, PRN potassium chloride, 40 mEq= 2 tab(s), Oral, AsDirected, PRN potassium chloride, 40 mEq= 2 tab(s), Oral, AsDirected, PRN potassium chloride bolus, 20 mEq= 100 mL, IV Piggyback, AsDirected, PRN Pulmicort Respules 0.25 mg/2 mL inhalation suspension, 0.25 mg= 2 mL, Inhalation, BIDRT rivaroxaban, 20 mg= 1 tab(s), Oral, with supper Tikosyn, 250 mcg= 1 cap(s), Oral, q12h tiZANidine, 2 mg= 1 tab(s), Oral, q8h, PRN Toprol-XL, 100 mg= 1 tab(s), Oral, BID traZODone, 100 mg= 1 tab(s), Oral, qHS Tylenol, 650 mg= 2 tab(s), Oral, q4h, PRN Home albuterol 2.5 mg/3 mL (0.083%) inhalation solution, 2.5 mg= 3 mL, Inhalation, q6h allopurinol 100 mg oral tablet, 100 mg= 1 tab(s), Oral, qDay, 3 refills cetirizine 10 mg oral tablet, 10 mg= 1 tab(s), Oral, Daily, 3 refills DULoxetine 20 mg oral delayed release capsule, 20 mg= 1 cap(s), Oral, qDay furosemide 20 mg oral tablet, 20 mg= 1 tab(s), Oral, Daily Nexletol 180 mg oral tablet, 180 mg= 1 tab(s), Oral, qDay, 5 refills omeprazole 40 mg oral delayed release capsule, 40 mg= 1 cap(s), Oral, BID Potassium Chloride (Eqv-K-Tab) 10 mEq oral tablet, extended release, 10 mEq= 1 tab(s), Oral, qDay, 3 refills pravastatin 40 mg oral tablet, 40 mg= 1 tab(s), Oral, qDay spironolactone 25 mg oral tablet, 25 mg= 1 tab(s), Oral, qDay, 3 refills Symbicort 80 mcg-4.5 mcg/inh Inhaler, 2 puff(s), Inhalation, BID, 3 refills Tikosyn 250 mcg oral capsule, 250 mcg= 1 cap(s), Oral, BID, 1 refills tiZANidine 2 mg oral tablet, 2 mg= 1 tab(s), Oral, q8h, PRN, 3 refills Toprol-XL 100 mg oral tablet, extended release, 100 mg= 1 tab(s), Oral, BID traZODone 100 mg oral tablet, 100 mg= 1 tab(s), Oral, qHS, 2 refills Trulicity Pen 1.5 mg/0.5 mL subcutaneous solution, 1.5 mg, Subcutaneous, qWeek, 3 refills Tylenol, Oral, PRN Vistaril 25 mg oral capsule, 25 mg= 1 cap(s), Oral, QID, PRN, 3 refills Xarelto 20 mg oral tablet, 20 mg= 1 tab(s), Oral, qHS, 3 refills Allergies Statins myalgia Social History Alcohol Use: Past., 07/11/2022 Nutrition/Health Caffeine intake amount: pop 3 daily., 11/08/2022 Substance Abuse Use: Never., 07/11/2022 Tobacco Nicotine Use: Former smoker, quit more than 30 days ago, former chewer of tobacco. Type: Oral (Snuff, Chew). Smokeless Tobacco Use: Former smokeless tobacco user, quit more than 30 days ago, stopped snuff October 2022., 01/12/2024 Nicotine Use: Former smoker, quit more than 30 days ago., 07/11/2022 Family History Cancer: Father. Heart disease: Mother and Grandparent. Stroke: Father. Health Status Family Member(s) Immunizations pneumococcal 13-valent conjugate vaccine: 0.5 unknown unit (04/12/22) SARS-CoV-2 (COVID-19) mRNA-1273 vaccine: 0 unknown unit (09/11/20) SARS-CoV-2 (COVID-19) mRNA-1273 vaccine: 0 unknown unit (08/14/20) Digitally Signed by MARILUZ BUI on 10/02/2024 02:36 PM [id number] Evaluation + Plan noteExtracted from: Title:History and Physical Author:DUSTIN RICHARD MD Date:10/02/24 Paroxysmal atrial fibrillati on Tachyarrhythmia induced cardiomyopathy Heart failure with improved EF (EF 30 to 35% in October 2022 to 55% in 2023) Moderate to severe LVH Mild pulmonary hypertension Severely dilated LA (LA 5.1 cm, DANIEL??) Obesity and KOFFI (intolerant to CPAP) Hypertension Diabetes mellitus Patient is currently in in [facility] A-fib. Rate is relatively well-controlled. Continue Cardizem drip. Plan for NELDA and cardioversion tomorrow. Will start the patient on short-term amiodarone after NELDA. Consult EP for consideration of A-fib ablation. Continue heparin by weight for now. Resume Xarelto from this evening. Euvolemic on physical exam. No signs of acute heart failure. Repeat echocardiogram after cardioversion. Addendum by MOY WATTS MD on October 02, 2024 19:47:16 EDT I have personally seen, examined, and evaluated the patient on the encounter date. I have reviewed the fellow s documentation and agree with the fellow s findings and plan as documented, unless otherwise stated. Future Appointments Appointment Date:10/23/2024 04:00:00 PM Scheduled Provider:ISADORA CORREA Location:[facility] Appointment Type:PC OV Appointment Date:11/08/2024 02:30:00 PM Scheduled Provider:EDY WEBER Location:[facility] Appointment Type:[facility] Hospital Follow Up Diagnostic Tests Pending * Urinalysis w/ C&S if Indicated 10/02/24 Future Scheduled Tests Laboratory* Basic Metabolic Panel 02/07/24 * Basic Metabolic Panel 12/10/24 * Basic Metabolic Panel 02/19/24 * Magnesium Level 02/07/24 * Complete Blood Count 08/27/24 * Complete Metabolic Panel 08/27/24 * N-Terminal proBNP 08/27/24 [facility] 05-07-2025 Note* Exam Date Time Procedure Performing Provider Status 10/02/24 1:53 PM Electrocardiogram - EKG - CV Brant VELÁZQUEZ MD; Auth (Verified) ECG Final Report SINUS RHYTHM PROBABLE LEFT ATRIAL ENLARGEMENT Left axis deviation Electronic Signature: JOHNIE VELÁZQUEZ MD 10/03/2024 19:51:33 [facility] [id number] History and physical note Date of Service 10/02/2024 Chief Complaint Palpitations and shortness of breath History of Present Illness CVC: Dr. Weber Past medical and cardiac history as in the assessment. 54-year-old male came in for frequent palpitations and shortness of breath for the last 3 days. Patient ran out of Tikosyn and Xarelto for a few days/weeks and started to feel symptoms. Patient denied recent weight gain, chest pain or discomfort, dyspnea, orthopnea, and PND. Also denied episode of lightheadedness, dizziness, patient with a syncope. Patient has been on Tikosyn and A-fib has been under control. Last cardioversion was in 2022. At the time of examination, patient was asymptomatic. Review of Systems Constitutional: denies Fevers and chills , no loss of appetite, denies fatigue or weight change Eyes: Denies double vision/blurring of vision/flashes or floaters Ears, Nose, Mouth & Throat: Denies any tinnitus/hearing loss/sinus congestion/nasal discharge/sore throat Respiratory: Denies any shortness of breath/cough/productive sputum/hemoptysis Gastrointestinal: Denies any abdominal pain/nausea/vomiting/diarrhea/hematochezia/hematemesis/melena Genitourinary: Denies any dysuria/hematuria Musculoskeletal: denies joint pain or joint swelling or deformities Skin: No ulcers or rash Neurological: denies Weakness or numbness of extremities/facial droop/loss of balance Endocrine: Denies any heat or cold intolerance/polyuria/polydipsia/polyphagia Hematologic/Lymphatic: denies lymphadenopathy Allergic/Immunologic: Denies any seasonal allergy/sneezing/tearing from the eyes Physical Exam Vitals and Measurements Weight Dosing Weight: 140.3 kg (10/02/24) General Appearance: Patient comfortably lying on bed, not in acute distress Head: Normocephalic, atraumatic EENT: PERRLA, Neck: Supple, no JVD, no mass Cardiac: s1s2,RRR, no murmurs or rubs or gallops Lungs: Clear to auscultation bilaterally, no wheeze or rhonchi or crackles Abdomen: Soft , Nontender, no organomegaly, bowel sounds heard Musculoskeletal: Full ROM , no gross deformities Extremities: No rash or ulcers or pedal edema Neurological: Alert, oriented x 3, grossly no focal neurological deficits Skin: No rash or ulcers Lab Results 10/02 09:41 WBC: 6.6 Hgb: 15.6 Hct: 47.4 Platelet: 139 L Neutrophil %: 70.3 Protime: 13.4 PT International Ratio: 1.2 Glucose Level: 109 Sodium Level: 139 Potassium Level: 3.5 BUN: 11.0 Creatinine Lvl (s): 0.71 Assessment/Plan Paroxysmal atrial fibrillation Tachyarrhythmia induced cardiomyopathy Heart failure with improved EF (EF 30 to 35% in October 2022 to 55% in 2023) Moderate to severe LVH Mild pulmonary hypertension Severely dilated LA (LA 5.1 cm, DANIEL??) Obesity and KOFFI (intolerant to CPAP) Hypertension Diabetes mellitus Patient is currently in in [facility] A-fib. Rate is relatively well-controlled. Continue Cardizem drip. Plan for NELDA and cardioversion tomorrow. Will start the patient on short-term amiodarone after NELDA. Consult EP for consideration of A-fib ablation. Continue heparin by weight for now. Resume Xarelto from this evening. Euvolemic on physical exam. No signs of acute heart failure. Repeat echocardiogram after cardioversion. Problem List/Past Medical History Ongoing Asthma exacerbation Atopic dermatitis Atypical chest pain BMI 45.0-49.9, adult Bronchitis Cardiomyopathy Chewing tobacco nicotine dependence COPD exacerbation Cough Dental abscess Depression Dyspnea Generalized anxiety disorder Hypertension associated with type 2 diabetes mellitus Insomnia LVH (left ventricular hypertrophy) Moderate asthma Morbid obesity Near syncope KOFFI (obstructive sleep apnea) Paroxysmal atrial fibrillation Right knee pain Screening for colon cancer Screening for ischemic heart disease Statin intolerance Type 2 diabetes mellitus with hemoglobin A1c goal of less than 7.0% Type 2 diabetes mellitus with hyperlipidemia Historical Anxiety Diabetes mellitus Hyperlipidemia Hypertension Mass of arm Obstructive sleep apnea Prediabetes Right flank pain Procedure/Surgical History Excision: 03/25/24 Echocardiogram: 01/31/24 Cardioversion: 12/23/22 Echocardiogram: 11/11/22 Elbow Medications Home Medications (19) Active albuterol 2.5 mg/3 mL (0.083%) inhalation solution 2.5 mg = 3 mL, Inhalation, q6h allopurinol 100 mg oral tablet 100 mg = 1 tab(s), Oral, qDay cetirizine 10 mg oral tablet 10 mg = 1 tab(s), Oral, Daily DULoxetine 20 mg oral delayed release capsule 20 mg = 1 cap(s), Oral, qDay furosemide 20 mg oral tablet 20 mg = 1 tab(s), Oral, Daily Nexletol 180 mg oral tablet 180 mg = 1 tab(s), Oral, qDay omeprazole 40 mg oral delayed release capsule 40 mg = 1 cap(s), Oral, BID Potassium Chloride (Eqv-K-Tab) 10 mEq oral tablet, extended release 10 mEq = 1 tab(s), Oral, qDay pravastatin 40 mg oral tablet 40 mg = 1 tab(s), Oral, qDay spironolactone 25 mg oral tablet 25 mg = 1 tab(s), Oral, qDay Symbicort 80 mcg-4.5 mcg/inh Inhaler 2 puff(s), Inhalation, BID Tikosyn 250 mcg oral capsule 250 mcg = 1 cap(s), Oral, BID tiZANidine 2 mg oral tablet 2 mg = 1 tab(s), PRN, Oral, q8h Toprol-XL 100 mg oral tablet, extended release 100 mg = 1 tab(s), Oral, BID traZODone 100 mg oral tablet 100 mg = 1 tab(s), Oral, qHS Trulicity Pen 1.5 mg/0.5 mL subcutaneous solution 1.5 mg, Subcutaneous, qWeek Tylenol , PRN, Oral Vistaril 25 mg oral capsule 25 mg = 1 cap(s), PRN, Oral, QID Xarelto 20 mg oral tablet 20 mg = 1 tab(s), Oral, qHS Allergies Statins myalgia Social History Alcohol Use: Past., 07/11/2022 Nutrition/Health Caffeine intake amount: pop 3 daily., 11/08/2022 Substance Abuse Use: Never., 07/11/2022 Tobacco Nicotine Use: Former smoker, quit more than 30 days ago, former chewer of tobacco. Type: Oral (Snuff, Chew). Smokeless Tobacco Use: Former smokeless tobacco user, quit more than 30 days ago, stopped snuff October 2022., 01/12/2024 Nicotine Use: Former smoker, quit more than 30 days ago., 07/11/2022 Family History Cancer: Father. Heart disease: Mother and Grandparent. Stroke: Father. Health Status Family Member(s) Immunizations pneumococcal 13-valent conjugate vaccine: 0.5 unknown unit (04/12/22) SARS-CoV-2 (COVID-19) mRNA-1273 vaccine: 0 unknown unit (09/11/20) SARS-CoV-2 (COVID-19) mRNA-1273 vaccine: 0 unknown unit (08/14/20) Code Status Code Status - Ordered -- 10/02/24 6:33:00 EDT, Full Code, Constant Order Digitally Signed by DUSTIN RICHARD MD on 10/02/2024 12:42 PM Digitally Signed by DUSTIN RICHARD MD on 10/02/2024 03:28 PM [facility] [id number] Respiratory therapy Hospital Progress note Respiratory Therapy Evaluation Entered On: 10/02/2024 10:42 EDT Performed On: 10/02/2024 10:42 EDT by CURTIS Patton Respiratory Therapy Evaluation Respiratory Pattern (RT) : RR 26-30 BPM, Dyspnea on exertion, irregular pattern Breath Sounds (RT) : Diminished due to poor inspiratory effort Cough (RT) : Strong, non-productive Level of Activity : Ambulatory Mental Status : Alert, oriented and cooperative Respiratory Therapy Evaluation Score : 8 Respiratory Evaluation Triage Score : (11-15) Freq: QIDRT & Albuterol Q2 RT prn CURTIS Patton - 10/02/2024 11:12 EDT Pulmonary Status : Severe or exacerbated lung disease or acute pulmonary process Surgical Status : No surgery Chest X-Ray : Chronic radiological changes RT Evaluation Steps : Chart review completed, Assessment completed: RR, HR, Auscultation, Cough, Patient Interview completed RT Assessment [Frequency/Schedule] : Therapeutic interchange, discontinue future evaluations CURTIS Patton - 10/02/2024 10:42 EDT Digitally Signed by CURTIS Patton on 10/02/2024 11:12 AM [facility] [id number] Note* Exam Date Time Procedure Performing Provider Status 10/02/24 8:23 AM Electrocardiogram - EKG - CV Brant VELÁZQUEZ MD; Auth (Verified) ECG Final Report ATRIAL FIBRILLATION LEFT ANTERIOR FASCICULAR BLOCK Electronic Signature: JOHNIE VELÁZQUEZ MD 10/03/2024 19:51:22 [facility] [id number] Note* Exam Date Time Procedure Performing Provider Status 10/02/24 6:24 AM Electrocardiogram - EKG - CV Brant VELÁZQUEZ MD; Auth (Verified) ECG Final Report ATRIAL FIBRILLATION WITH RAPID VENTRICULAR RESPONSE Right axis deviation Electronic Signature: JOHNIE VELÁZQUEZ MD 10/03/2024 19:51:11 [facility] [id number] Nurse Progress note bryon Nicole [phone] Digitally Signed by Halley Staples RN on 10/02/2024 04:26 AM [facility]05-07-2025 Nurse Progress note ready bed at main, transport called at 0230 ETA 90 min Digitally Signed by Halley Staples RN on 10/02/2024 04:22 AM [facility]05-07-2025 Nurse Progress note ready bed at main, transport called at 0230 ETA 90 min Digitally Signed by Halley Staples RN on 10/02/2024 04:22 AM [facility]05-07-2025 Note* Exam Date Time Procedure Performing Provider Status 10/02/24 1:43 AM XR Chest 1 View DARNELL MOLINA MD; [facility] (Verified[facility] [id number] ORIGINAL EXAMINATION: ONE XRAY VIEW OF THE CHEST10/02/2024 1:43 am COMPARISON: 08/27/2024 HISTORY: ORDERING SYSTEM PROVIDED HISTORY: Reason for Exam: chest pain FINDINGS: Suboptimal evaluation due to body habitus, suboptimal positioning and poor penetration factors Low lung volumes with hypoventilatory changes. Cardiac silhouette enlargement, may be exaggerated due to low lung volumes. Bilateral prominent interstitial markings, possible exaggeration due to low lung volumes. No large pleural effusion. No pneumothorax. No focal consolidation seen. There are no acute abnormalities to osseous structures. IMPRESSION: Low lung volumes with hypoventilatory changes. Cardiac silhouette enlargement and prominent interstitial markings, exaggerated due to low lung volumes. I have personally reviewed the images of this examination, and agree with the resident's findings and interpretation. Interpreted by: Darnell Molina MD Preliminary Report By: Jordon Levin Electronically signed By Darnell Molina MD Dictated Date: 10/02/2024 1:53:31 AM Prelim Date: 10/02/2024 1:57:22 AM Sign Date: 10/02/2024 2:02:33 AM Ordering Provider: DELORES MURO [facility]05-07-2025 Note* Exam Date Time Procedure Performing Provider Status 10/02/24 12:38 AM EKG [ED [facility]] - DELORES CALLOWAY DO; [facility] (Verified) ECG Final Report Atrial fibrillation Inferior infarct, old Probable anteroseptal infarct, old Prolonged QT interval Baseline wander in lead(s) III,V1,V2,V5,V6 Compared to ECG at 08/13/2024 11:03:57 Electronic Signature: TAVOSUZANNE COUCHAJ STONE 10/02/2024 02:28:42 [facility]10-30-2024 Note The microscopic examination is performed, except in the case of Gross Only. [facility] 10-29-2024 Note The microscopic examination is performed, except in the case of Gross Only. [facility] 10-29-2024 Note The microscopic examination is performed, except in the case of Gross Only. [facility] 10-29-2024 Note The microscopic examination is performed, except in the case of Gross Only. [facility] 10-29-2024 Note The microscopic examination is performed, except in the case of Gross Only. [facility] 10-29-2024 Note The microscopic examination is performed, except in the case of Gross Only. [facility] 10-29-2024 Note The microscopic examination is performed, except in the case of Gross Only. [facility] 09-09-2024 Note. MICRO - Microbiology PROCEDURE: Blood Culture (bacterial) [*1] SOURCE: Blood BODY SITE: COLLECTED DATE/TIME: 01/30/2024 21:21 EDT RECEIVED DATE/TIME: 01/31/2024 14:24 EDT START DATE/TIME: 01/31/2024 14:24 EDT FREE TEXT SOURCE: FINAL REPORTS Final Report [] Verified Date/Time/Personnel: 02/05/2024 14:59 EDT Blood Culture: No Growth at 5 days. PRELIMINARY REPORTS Preliminary Report [] Verified Date/Time/Personnel: 01/31/2024 14:59 EDT Culture has been received in lab and is no growth to date. Routine cultures are held for 5 days. Performing Locations *1: This test was performed at: [address], [address] [place], [place] [address]09-09-2024 Note. MICRO - Microbiology PROCEDURE: Blood Culture (bacterial) [*1] SOURCE: Blood BODY SITE: COLLECTED DATE/TIME: 01/30/2024 21:21 EDT RECEIVED DATE/TIME: 01/31/2024 14:24 EDT START DATE/TIME: 01/31/2024 14:24 EDT FREE TEXT SOURCE: FINAL REPORTS Final Report [] Verified Date/Time/Personnel: 02/05/2024 14:59 EDT Blood Culture: No Growth at 5 days. PRELIMINARY REPORTS Preliminary Report [] Verified Date/Time/Personnel: 01/31/2024 14:59 EDT Culture has been received in lab and is no growth to date. Routine cultures are held for 5 days. Performing Locations *1: This test was performed at: [address], [address] [place], [place] [address]-09-2024 Note. MICRO - Microbiology PROCEDURE: Blood Culture (bacterial) [*1] SOURCE: Blood BODY SITE: COLLECTED DATE/TIME: 01/31/2024 03:46 EDT RECEIVED DATE/TIME: 01/31/2024 04:22 EDT START DATE/TIME: 01/31/2024 04:22 EDT FREE TEXT SOURCE: FINAL REPORTS Final Report [] Verified Date/Time/Personnel: 02/05/2024 04:59 EDT Blood Culture: No Growth at 5 days. PRELIMINARY REPORTS Preliminary Report [] Verified Date/Time/Personnel: 01/31/2024 04:59 EDT Culture has been received in lab and is no growth to date. Routine cultures are held for 5 days. Performing Locations *1: This test was performed at: [address], [id number] [place] [address] [id number] Note. MICRO - Microbiology PROCEDURE: Blood Culture (bacterial) [*1] SOURCE: Blood BODY SITE: COLLECTED DATE/TIME: 01/31/2024 03:46 EDT RECEIVED DATE/TIME: 01/31/2024 04:22 EDT START DATE/TIME: 01/31/2024 04:22 EDT FREE TEXT SOURCE: FINAL REPORTS Final Report [] Verified Date/Time/Personnel: 02/05/2024 04:59 EDT Blood Culture: No Growth at 5 days. PRELIMINARY REPORTS Preliminary Report [] Verified Date/Time/Personnel: 01/31/2024 04:59 EDT Culture has been received in lab and is no growth to date. Routine cultures are held for 5 days. Performing Locations *1: This test was performed at: [address], [address] [place] [address] [id number] Hospital Discharge instructions Patient Education 02/01/2024 17:18:13 Atrial Fibrillation, [id number] Atrial Fibrillation Atrial fibrillation is a type of heartbeat that is irregular or fast (rapid). If you have this condition, your heart beats without any order. This makes it hard for your heart to pump blood in a normal way. Having this condition gives you more risk for stroke, heart failure, and other heart problems. Atrial fibrillation may start all of a sudden and then stop on its own, or it may become a long-lasting problem. What are the causes? This condition may be caused by heart conditions, such as: High blood pressure. Heart failure. Heart valve disease. Heart surgery. Other causes include: Pneumonia. Obstructive sleep apnea. Lung cancer. Thyroid disease. Drinking too much alcohol. Sometimes the cause is not known. What increases the risk? You are more likely to develop this condition if: You smoke. You are older. You have diabetes. You are overweight. You have a family history of this condition. You exercise often and hard. What are the signs or symptoms? Common symptoms of this condition include: A feeling like your heart is beating very fast. Chest pain. Feeling short of breath. Feeling light-headed or weak. Getting tired easily. Follow these instructions at home: Medicines Take twxv-ikq-mfahrev and prescription medicines only as told by your doctor. If your doctor gives you a blood-thinning medicine, take it exactly as told. Taking too much of it can cause bleeding. Taking too little of it does not protect you against clots. Clots can cause a stroke. Lifestyle Do not use any tobacco products. These include cigarettes, chewing tobacco, and e-cigarettes. If you need help quitting, ask your doctor. Do not drink alcohol. Do not drink beverages that have caffeine. These include coffee, soda, and tea. Follow diet instructions as told by your doctor. Exercise regularly as told by your doctor. General instructions If you have a condition that causes breathing to stop for a short period of time (apnea), treat it as told by your doctor. Keep a healthy weight. Do not use diet pills unless your doctor says they are safe for you. Diet pills may make heart problems worse. Keep all follow-up visits as told by your doctor. This is important. Contact a doctor if: You notice a change in the speed, rhythm, or strength of your heartbeat. You are taking a blood-thinning medicine and you see more bruising. You get tired more easily when you move or exercise. You have a sudden change in weight. Get help right away if: You have pain in your chest or your belly (abdomen). You have trouble breathing. You have blood in your vomit, poop, or pee (urine). You have any signs of a stroke. BE FAST is an easy way to remember the main warning signs: ?B - Balance. Signs are dizziness, sudden trouble walking, or loss of balance. ?E - Eyes. Signs are trouble seeing or a change in how you see. ?F - Face. Signs are sudden weakness or loss of feeling in the face, or the face or eyelid droopingon one side. ?A - Arms. Signs are weakness or loss of feeling in an arm. This happens suddenly and usually on one side of the body. ?S - Speech. Signs are sudden trouble speaking, slurred speech, or trouble understanding what people say. ?T - Time. Time to call emergency services. Write down what time symptoms started. You have other signs of a stroke, such as: ?A sudden, very bad headache with no known cause. ?Feeling sick to your stomach (nausea). ?Throwing up (vomiting). ?Jerky movements you cannot control (seizure). These symptoms may be an emergency. Do not wait to see if the symptoms will go away. Get medical help right away. Call your local emergency services (911 in the [place] Do not drive yourself to the hospital. Summary Atrial fibrillation is a type of heartbeat that is irregular or fast (rapid). You are at higher risk of this condition if you smoke, are older, have diabetes, or are overweight. Follow your doctor's instructions about medicines, diet, exercise, and follow-up visits. Get help right away if you think that you have signs of a stroke. This information is not intended to replace advice given to you by your health care provider. Make sure you discuss any questions you have with your health care provider. Document Released: 02/21/2009 Document Revised: 07/19/2018 Document Reviewed: 07/06/2018 [employer] Patient Education 2020 [employer]. Follow Up Care 01/31/2024 00:20:11 With:ISADORA CORREA Address: [place] [address]- When:1-2 days Comments:Please call the office to schedule a hospital follow-up appointment. [facility] 09-05-2024 Note Discharge Instructions Thank you for allowing [facility] to assist you with your healthcare needs. The following is importantdischarge information regarding your hospital visit. 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 The Following Activity and Diet Have Been Ordered for You Discharge Activity - Ordered -- Activity As Tolerated, 02/01/24 16:43:00 EDT Discharge Diet - Ordered -- 02/01/24 16:43:00 EDT The Following Equipment Has Been Ordered for You No qualifying data available. The Following Treatments Have Been Ordered for You Discharge Labs No qualifying data available. Discharge Radiology No qualifying data available. Other Therapies No qualifying data available. Post Acute Orders No qualifying data available. Someone Will Contact You Regarding These Home Health Referrals No home referrals have been ordered for you. No one will call you. Allergies NKA Medications Please ask your primary doctor or pharmacist before taking any other medication not listed, including over the counter drugs, herbal medications, vitamins and or supplements as they may interact withyour home medications. What How Much When Why Instructions Last Dose Unchanged acetaminophen (Tylenol) by mouth As needed for as needed for pain Unchanged allopurinol (allopurinol 100 mg oral tablet) 1 tab(s) by mouth Once a day Unchanged budesonide-formoterol (Symbicort 80 mcg-4.5 mcg/ inh Inhaler) 2 puff(s) by inhalation Two (2) times a day Duration: 30 Days Unchanged cetirizine (cetirizine 10 mg oral tablet) 1 tab(s) by mouth Every day Duration: 90 Days Unchanged DME (Blood Glucose Test Machine) See instructions Use glucometer daily as directed for blood sugar checks. Dispense insurance preferred device Unchanged DME (Blood Glucose Test Strips) See instructions 1 bottle of 100 Test once daily Unchanged DME (Lancets) See instructions qs 1 month supply Test once daily Unchanged dofetilide (Tikosyn 250 mcg oral capsule) 1 cap by mouth Two (2) times a day Unchanged dulaglutide (Trulicity Pen 1.5 mg/ 0.5 mL subcutaneous solution) 1.5 Milligram Subcutaneous Every week Duration: 28 Days sent in absence of PCP Unchanged FLUoxetine (FLUoxetine 20 mg oral capsule) 1 cap by mouth Once a day Unchanged hydrOXYzine (Vistaril 25 mg oral capsule) 1 cap by mouth Four (4) times a day as needed for as needed for anxiety Duration: 30 Days Unchanged metoprolol (Toprol-XL 100 mg oral tablet, extended release) 1 tab(s) by mouth Two (2) times a day Shortness of breath Duration: 90 Days do not crush or chew Unchanged omeprazole (omeprazole 40 mg oral delayed release capsule) 1 cap by mouth Two (2) times a day before a meal. Unchanged rivaroxaban (Xarelto 20 mg oral tablet) 1 tab(s) by mouth Daily at bedtime Unchanged rosuvastatin (rosuvastatin 20 mg oral tablet) 1 tab(s) by mouth Every day Unchanged spironolactone (spironolactone 25 mg oral tablet) 1 tab(s) by mouth Once a day Duration: 90 Days Unchanged tiZANidine (tiZANidine 2 mg oral tablet) 1 tab(s) by mouth Every 8 hours as needed for as needed for muscle spasm Unchanged traZODone (traZODone 100 mg oral tablet) 1 tab(s) by mouth Daily at bedtime What How Much When Comments Stop Taking furosemide (Lasix 40 mg oral tablet) See instructions 1 tab in AM and 0.5 tab in PM Stop Taking sacubitril-valsartan (sacubitril-valsartan 49 mg-51 mg oral tablet) 1 tab(s) by mouth Two (2) times a day Duration: 90 Days Please take this list to your next doctor s visit. Bring all medications you take, including over the counter medications, herbals and other supplements with you to your doctor s visit. Patients and families are reminded to discard old lists and to update any records with all medication providers or retail pharmacies. Education Materials Atrial Fibrillation Atrial fibrillation is a type of heartbeat that is irregular or fast (rapid). If you have this condition, your heart beats without any order. This makes it hard for your heart to pump blood in a normal way. Having this condition gives you more risk for stroke, heart failure, and other heart problems. Atrial fibrillation may start all of a sudden and then stop on its own, or it may become a long-lasting problem. What are the causes? This condition may be caused by heart conditions, such as: High blood pressure. Heart failure. Heart valve disease. Heart surgery. Other causes include: Pneumonia. Obstructive sleep apnea. Lung cancer. Thyroid disease. Drinking too much alcohol. Sometimes the cause is not known. What increases the risk? You are more likely to develop this condition if: You smoke. You are older. You have diabetes. You are overweight. You have a family history of this condition. You exercise often and hard. What are the signs or symptoms? Common symptoms of this condition include: A feeling like your heart is beating very fast. Chest pain. Feeling short of breath. Feeling light-headed or weak. Getting tired easily. Follow these instructions at home: Medicines Take uexq-yjp-oxjglve and prescription medicines only as told by your doctor. If your doctor gives you a blood-thinning medicine, take it exactly as told. Taking too much of it can cause bleeding. Taking too little of it does not protect you against clots. Clots can cause a stroke. Lifestyle Do not use any tobacco products. These include cigarettes, chewing tobacco, and e-cigarettes. If you need help quitting, ask your doctor. Do not drink alcohol. Do not drink beverages that have caffeine. These include coffee, soda, and tea. Follow diet instructions as told by your doctor. Exercise regularly as told by your doctor. General instructions If you have a condition that causes breathing to stop for a short period of time (apnea), treat it as told by your doctor. Keep a healthy weight. Do not use diet pills unless your doctor says they are safe for you. Diet pills may make heart problems worse. Keep all follow-up visits as told by your doctor. This is important. Contact a doctor if: You notice a change in the speed, rhythm, or strength of your heartbeat. You are taking a blood-thinning medicine and you see more bruising. You get tired more easily when you move or exercise. You have a sudden change in weight. Get help right away if: You have pain in your chest or your belly (abdomen). You have trouble breathing. You have blood in your vomit, poop, or pee (urine). You have any signs of a stroke. BE FAST is an easy way to remember the main warning signs: ? B - Balance. Signs are dizziness, sudden trouble walking, or loss of balance. ? E - Eyes. Signs are trouble seeing or a change in how you see. ? F - Face. Signs are sudden weakness or loss of feeling in the face, or the face or eyelid drooping on one side. ? A - Arms. Signs are weakness or loss of feeling in an arm. This happens suddenly and usually on oneside of the body. ? S - Speech. Signs are sudden trouble speaking, slurred speech, or trouble understanding what peoplesay. ? T - Time. Time to call emergency services. Write down what time symptoms started. You have other signs of a stroke, such as: ? A sudden, very bad headache with no known cause. ? Feeling sick to your stomach (nausea). ? Throwing up (vomiting). ? Jerky movements you cannot control (seizure). These symptoms may be an emergency. Do not wait to see if the symptoms will go away. Get medical help right away. Call your local emergency services (911 in the [place] Do not drive yourself to the hospital. Summary Atrial fibrillation is a type of heartbeat that is irregular or fast (rapid). You are at higher risk of this condition if you smoke, are older, have diabetes, or are overweight. Follow your doctor's instructions about medicines, diet, exercise, and follow-up visits. Get help right away if you think that you have signs of a stroke. This information is not intended to replace advice given to you by your health care provider. Make sure you discuss any questions you have with your health care provider. Document Released: 02/21/2009 Document Revised: 07/19/2018 Document Reviewed: 07/06/2018 [employer] Patient Education 2020 [employer] Additional Information VACCINATE! IT SAVES LIVES! Members of the community who have not yet received the COVID-19 vaccine and would like to receive it can visit one of [facility] vaccine clinics. There are many vaccine clinic locations within the [facility]. For locations and available times, please visit [email or web address].[place].gov/. It is important to note that some COVID mobile vaccine clinics are held outdoors and may be canceled in rainy or stormy conditions. To learn more about pediatric vaccinations (ages 5-11), we invite you to visit the [facility] webpage. [email or web address]/[email or web address] [email or web address] learn more about the COVID-19 vaccine, we invite you to visit the CDC website for a list of frequently asked questions.https://www.cdc.gov/coronavirus/2019-ncov/vaccines/faq.html [facility] Patient Portal Access Instructions: Stay connected with your healthcare team and access your personal medical information anytime with the [facility] Patient Portal. Please follow the directions below to create your [facility] account: 1.Access the email account you provided upon registration to the hospital/physician office.2.Look for an invitation email from [facility].3.Open the email and access the invitation link: AcceptInvitation to [facility].4.Fill in the required orr to create your account. To access your account, visit [employer]. Click the blue button labeled Access Patient Portal and then log in with the username and password that you created in the steps above. You will be able to view your test results, lab results, a summary of your visits, upcoming appointments and more. There is also a convenient messaging option where you can send secure messages to your [employer]. In addition, you will have the ability to download any documents or summaries to your computer and/or send the information securely to a physician. Remember that your healthcare information is confidential, so carefully consider who you will allowto register on the [facility] Patient Portal for access to your information. You can also access the [facility] Patient Portal on the [facility] [employer] frida. Simply click on Patient Portal and then log into your account. If you would like to receive a full copy of your medical records, please contact the [facility] Medical Records Department by calling [phone], Monday through Monday between 8 a.m. and 4:30 p.m. HOW TO SAFELY DISPOSE OF PRESCRIPTION MEDICATIONS Please use one of the following methods to safely dispose of your unused medications. 1.Use a drug disposal kit: the drug disposal pouch allows you to safely discard your old and unuseddrugs. Ask your nurse to give you one when you are discharged.2.Visit a local take-back location: Many local pharmacies and police departments have programs that collect old and unwanted prescriptiondrugs. Call your local pharmacy or go to http://bit.[employer]/7N5Xh3q to find one close to you.3.Make use of household items: Use cat litter or old coffee grounds to dispose medications if other options arenot available. Mix your drugs with these household products, seal them in an airtight container andthrow it into the garbage. Call [facility]: [phone] to be sure your drugs can be disposed of in this way. Some medicines may require a different approach.4.Never flush your medications down the toilet. IF YOU HAVE BEEN PRESCRIBED AN OPIOID FOR PAIN If you have been prescribed an opioid (such as hydrocodone, oxycodone or morphine), it is critical to understand the possible side effects and risks of opioid pain medications. Even when taken as directed, opioids can have several side effects including: Tolerance, meaning you might need to take more of a medication for the same pain relief. Nausea, vomiting and/or constipation. Sleepiness, dizziness, dry mouth, confusion, depression or itching. Physical dependence, meaning you have withdrawal symptoms when a medication is stopped, can develop within a few days. KNOW YOUR RESPONSIBILITIES It is important to know exactly how much and how often to take the opioid pain medications you are prescribed. Never take opioids in higher amounts or more often than prescribed. Do not combine opioids with alcohol or other drugs that cause drowsiness, such as benzodiazepines, also known as benzos, including diazepam and alprazolam, muscle relaxants or sleep aids. Never sell or share prescription opioids. This is illegal. Store opioids in a secure place and out of reach of others (including children, family, friends and visitors). The last page of this document has been signed and retained as a CHART COPY. Signatures Patient Education Materials Atrial Fibrillation, Vglf-jd-Uylx Medication Leaflets My discharge plan and instructions have been reviewed and explained to me and IWARREN RAY J understand my current condition and have read and understand these discharge instructions. I have received awritten copy of the plan/instructions. If I have questions, I am aware that I should contact my doctor. Patient/Dealer Support Technician Signature: Date/Time: Relationship to Patient: Witness Name/Signature: Date[facility]Time: [id number] Discharge summary Date of Service 02/01/2024 Discharge Diagnosis Syncope and collapse (R55 - ICD-10-CM) Other shock (R57.8 - ICD-10-CM) Hypo-osmolality and hyponatremia (E87.1 - ICD-10-CM) Acute kidney failure, unspecified (N17.9 - ICD-10-CM) Chronic diastolic (congestive) heart failure (I50.32 - ICD-10-CM) Cardiomyopathy, unspecified (I42.9 - ICD-10-CM) Other pericardial effusion (noninflammatory) (I31.39 - ICD-10-CM) Other cardiomyopathies (I42.8 - ICD-10-CM) Hypotension, unspecified (I95.9 - ICD-10-CM) Left anterior fascicular block (I44.4 - ICD-10-CM) Personal history of other endocrine, nutritional and metabolic disease (Z86.39 - ICD-10-CM) Morbid (severe) obesity due to excess calories (E66.01 - ICD-10-CM) Type 2 diabetes mellitus without complications (E11.9 - ICD-10-CM) Obstructive sleep apnea (adult) (pediatric) (G47.33 - ICD-10-CM) Shortness of breath (R06.02 - ICD-10-CM) A-fib with RVR Additional Orders: Ordered: Discharge,02/01/24 16:43:00 EDT, Discharged to: Home Ordered: Discharge Activity,Activity As Tolerated, 02/01/24 16:43:00 EDT Ordered: Discharge Diet,02/01/24 16:43:00 EDT Other status: Effer-K 20 mEq oral tablet, effervescent,Start: 02/01/24 10:15:00 EDT, Dose = 40 mEq,= 2 tab(s), Oral, Once, Stop: 02/01/24 10:15:00 EDT, 02/01/24 10:12:00 EDT(Complete) Hospital Course 53-year-old male who has past history of atrial fibrillation on Tikosyn and Xarelto, alsoheart failure with preserved ejection fraction, asthma, type 2 diabetes mellitus. The patient presented to the [facility] on 01/31/2024 as a transfer from [place] for A-fib with RVR. Apparently the patient was having episodes of dizziness and ended up having a syncopal episode. Was found to bein A-fib with RVR and was started on a Cardizem drip. His blood pressure fell and he was started onLevophed and transferred to the MICU. Was started empirically on ceftriaxone for suspected pneumonia, however when I spoke with the patient he really was not having any respiratory symptoms so antibiotics were discontinued. He spent 24 hours in the MICU, pressors were weaned off, heart rate was better controlled. Home medications restarted including Tikosyn. I spoke with cardiology who did not think that he needed to be monitored in hospital for Tikosyn loading. I only took care of the patient on the day of discharge from hospital but based on review of physician's note who saw him initially his diagnosis was hypotensive shock without any specification as tothe etiology. Allergies NKA Consults No qualifying data available. Physical Exam Vitals and Measurements T: 37.0 C (Oral) TMIN: 36.4 C (Oral) TMAX: 37.2 C (Oral) HR: 72 (Apical) RR: 18 BP: 119/82 SpO2: 93% Weight Dosing Weight: 149.1 kg (01/31/24) GENERAL: Pt is comfortable in bed. Appears in no acute distress. 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 allopurinol (allopurinol 100 mg oral tablet)1 tab(s) by mouth once a day. Refills: 3. budesonide-formoterol (Symbicort 80 mcg-4.5 mcg/inh Inhaler)2 puff(s) by inhalation two (2) times aday for 30 Days. Refills: 3. cetirizine (cetirizine 10 mg oral tablet)1 tab(s) by mouth every day for 90 Days. Refills: 3. DME (Blood Glucose Test Machine)Use glucometer daily as directed for blood sugar checks. Dispense insurance preferred device. Refills: 0. DME (Blood Glucose Test Strips)1 bottle of 100 Test once daily. Refills: 11. DME (Lancets)qs 1 month supply Test once daily. Refills: 11. dofetilide (Tikosyn 250 mcg oral capsule)1 cap by mouth two (2) times a day. Refills: 3. dulaglutide (Trulicity Pen 1.5 mg/0.5 mL subcutaneous solution)1.5 Milligram Subcutaneous every week for 28 Days. sent in absence of PCP. Refills: 3. FLUoxetine (FLUoxetine 20 mg oral capsule)1 cap by mouth once a day. Refills: 3. hydrOXYzine (Vistaril 25 mg oral capsule)1 cap by mouth four (4) times a day as needed as needed for anxiety for 30 Days. Refills: 5. metoprolol (Toprol-XL 100 mg oral tablet, extended release)1 tab(s) by mouth two (2) times a day for 90 Days. do not crush or chew. Refills: 3. omeprazole (omeprazole 40 mg oral delayed release capsule)1 cap by mouth two (2) times a day. before a meal.. Refills: 3. rivaroxaban (Xarelto 20 mg oral tablet)1 tab(s) by mouth daily at bedtime. Refills: 3. rosuvastatin (rosuvastatin 20 mg oral tablet)1 tab(s) by mouth every day. Refills: 3. spironolactone (spironolactone 25 mg oral tablet)1 tab(s) by mouth once a day for 90 Days. Refills:3. tiZANidine (tiZANidine 2 mg oral tablet)1 tab(s) by mouth every 8 hours as needed as needed for muscle spasm. Refills: 2. traZODone (traZODone 100 mg oral tablet)1 tab(s) by mouth daily at bedtime. Refills: 3. Discontinued furosemide (Lasix 40 mg oral tablet)1 tab in AM and 0.5 tab in PM. Refills: 3. sacubitril-valsartan (sacubitril-valsartan 49 mg-51 mg oral tablet)1 tab(s) by mouth two (2) times a day for 90 Days. Refills: 3. Follow Up Follow Up with ISADORA CORREA When:Within 1-2 days Where:[address] [facility] [place] [address]- Additional Information: Please call the office to schedule a hospital follow-up appointment. Follow Up Appointments No qualifying data available. Follow Up Labs/Studies Discharge Labs No Follow-up Labs Discharge Studies No Follow-up Studies Discharge Diet Discharge Diet - Ordered -- 02/01/24 16:43:00 EDT Discharge Activity Discharge Activity - Ordered -- Activity As Tolerated, 02/01/24 16:43:00 EDT Condition on Discharge Stable Discharge Disposition Home Information Provided To The patient Time Spent Greater than 40 minutes spent in discharge planning Digitally Signed by BRENNON INGRAM MD on 02/01/2024 04:53 PM [facility] [id number] Cardiology Progress note HPI: 53-year-old morbidly obese came in with A-fib with RVR CT with score of 2 on Tikosyn near syncopal episode tachycardia mediated cardiomyopathy EF of 30 to 35% recent COVID infection hypertensionobstructive sleep apnea hyperlipidemia type 2 diabetes mellitus. Subjective: Denies any symptoms Objective: Tmax 37 2 Telemetry normal sinus rhythm Blood pressure 119/82 Respiratory rate 18 SpO2 98% HEENT exam Short thick neck no JVD Chest good bilateral air entry Cardiovascular S1-S2 heard no murmurs appreciated Abdomen benign Extremities good pulses [employer] grossly intact Skin warm to touch Laboratory data imaging studies educations reviewed Assessment and plan: A-fib with RVR Near syncopal episode Tachycardia minute cardiomyopathy Hypertension KOFFI Hyperlipidemia Type 2 diabetes mellitus At this point in time patient is in normal sinus rhythm will continue his current medical treatmentplan along with continuation of his anticoagulation Xarelto 20 g once daily no change in treatment plan has been recommended Digitally Signed by FREDDY HARTLEY MD on 02/01/2024 04:26 PM [id number] Anesthesiology Consult note Patient: SOCORRO KELLEY Age: 53 years Sex: Male : 1970 Associated Diagnoses: None Author: CIRILO MCDONOUGH DO Preoperative Information Greater than 6 hours Anesthesia history Patient's history: negative. Family's history: negative. Review of Systems Ear/Nose/Mouth/Throat: Negative except as documented in history of present illness. Respiratory: Negative except as documented in history of present illness. Cardiovascular: Negative except as documented in history of present illness. Gastrointestinal: Negative except as documented in history of present illness. Genitourinary: Negative except as documented in history of present illness. Endocrine: Negative except as documented in history of present illness. Musculoskeletal: Negative except as documented in history of present illness. Integumentary: Negative except as documented in history of present illness. Neurologic: Negative except as documented in history of present illness. Health Status Allergies: Allergic Reactions (Selected) NKA, Allergies (1) ActiveSeverityReaction NKANone Documented Current medications: (Selected) Inpatient Medications Ordered Dextrose 50% IV Push: Start: 01/31/24 15:24:00 EDT, Dose = 12.5 gram(s), = 25 mL, IV Push, AsDirected, PRN, Hypoglycemia, 01/31/24 15:24:00 EDT FLUoxetine: Start: 02/01/24 9:00:00 EDT, Dose = 20 mg, = 1 cap(s), Oral, qDay, 02/01/24 9:00:00 EDT Heparin HBW CARDIAC Bolus 5000 units/mL: Start: 01/31/24 3:15:00 EDT, Dose = 4,000 unit(s), = 0.8 mL, IV Push, q6h, PRN, Protocol, Weight Based Heparin, 01/31/24 3:15:00 EDT Heparin for IV 25,000 unit(s) [6.71 unit(s)/kg/hr] + Dextrose 5% Premix Diluent 250 mL: Start: 01/31/24 3:15:00 EDT, Rate: 10 mL/hr, 01/31/24 3:15:00 EDT PHARMACY TO DOSE: Start: 01/31/24 15:24:00 EDT, Daily, 23 hour(s), Stop: 02/01/24 9:00:00 EDT, Pharmacy to manage Vancomycin, 01/31/24 15:24:00 EDT Tikosyn: Start: 01/31/24 18:00:00 EDT, Dose = 250 mcg, = 1 cap(s), Oral, BID, 0, 01/31/24 18:00:00 EDT Toprol-XL: Start: 01/31/24 8:44:00 EDT, Dose = 100 mg, = 1 tab(s), Oral, BID, 0, 01/31/24 8:44:00 EDT albuterol 2.5 mg/3 mL (0.083%) inhalation solution: Start: 02/01/24 7:01:00 EDT, Dose = 2.5 mg, = 3mL, Inhalation, QIDRT, 0, 01/31/24 22:42:00 EDT allopurinol: Start: 01/31/24 22:44:00 EDT, Dose = 100 mg, = 1 tab(s), Oral, qDay, 0, 01/31/24 22:43:00 EDT budesonide 0.25 mg/2 mL inhalation suspension: Start: 01/31/24 7:01:00 EDT, Dose = 0.25 mg, = 2 mL,Inhalation, BIDRT, 01/31/24 3:31:00 EDT cefTRIAXone: Start: 02/01/24 0:00:00 EDT, Dose = 2 gram(s), = 20 mL, IV Push (INT), qDay, Rate: 240mL/hr, Infuse over: 5 minute(s), 0, 01/31/24 3:16:00 EDT codeine-guaifenesin 10 mg-100 mg/5 mL oral syrup: Start: 01/31/24 3:14:00 EDT, Dose = 10 mL, UD Cup, Oral, q4h, PRN, Cough, 0, 01/31/24 3:14:00 EDT metoprolol tartrate 1 mg/mL injectable solution: Start: 01/31/24 3:33:00 EDT, Dose = 5 mg, = 5 mL, IV Push, q3h, PRN, Systolic BP: See order comments, 0, 01/31/24 3:33:00 EDT omeprazole: Start: 01/31/24 22:36:00 EDT, Dose = 40 mg, = 1 cap(s), Oral, BID, 0, 01/31/24 22:35:00EDT rosuvastatin: Start: 01/31/24 22:36:00 EDT, Dose = 20 mg, = 1 tab(s), Oral, Daily, 0, 01/31/24 22:35:00 EDT traZODone: Start: 01/31/24 22:37:00 EDT, Dose = 100 mg, = 1 tab(s), Oral, qHS, 0, 01/31/24 22:35:00EDT Prescriptions Prescribed Blood Glucose Test Machine: See Instructions, Use glucometer daily as directed for blood sugar checks. Dispense insurance preferred device, # 1 EA, 0 Refill(s), Pharmacy: [facility], 177.8, cm, 11/28/23 13:54:00 EDT, Height, 151.4, kg, 11/28/23 13:54:00 EDT, Dosin... Blood Glucose Test Strips: See Instructions, 1 bottle of 100 Test once daily, # 1 EA, 11 Refill(s), Pharmacy: [facility], 177.8, cm, 11/28/23 13:54:00 EDT, Height, 151.4, kg, 11/28/23 13:54:00 EDT, Dosing Weight FLUoxetine 20 mg oral capsule: Dose : 20 mg = 1 cap(s), Oral, qDay, # 30 cap(s), 3 Refill(s), Pharmacy: [facility], 177.8, cm, 11/28/23 13:54:00 EDT, Height, kg, 11/28/23 13:54:00 EDT,Dosing Weight Lancets: See Instructions, qs 1 month supply Test once daily, # 1 EA, 11 Refill(s), Pharmacy: [facility], 177.8, cm, 11/28/23 13:54:00 EDT, Height, 151.4, kg, 11/28/23 13:54:00 EDT, Dosing Weight Lasix 40 mg oral tablet: See Instructions, 1 tab in AM and 0.5 tab in PM, # 135 tab(s), 3 Refill(s), Pharmacy: [facility], 177.8, cm, 11/28/23 13:54:00 EDT, Height, kg, 11/28/23 13:54:00 EDT, Dosing Weight Symbicort 80 mcg-4.5 mcg/inh Inhaler: Dose = 2 puff(s), Inhalation, BID, # 10.2 gram(s), 3 Refill(s), Pharmacy: [facility], 177.8, cm, 11/28/23 13:54:00 EDT, Height, kg, 11/28/23 13:54:00 EDT, Dosing Weight Tikosyn 250 mcg oral capsule: Dose : 250 mcg = 1 cap(s), Oral, BID, # 180 cap(s), 3 Refill(s), Pharmacy: [facility]/pharmacy #[id number], 177.8, cm, 11/28/23 13:54:00 EDT, Height, kg, 11/28/23 13:54:00 EDT, Dosing Weight Toprol-XL 100 mg oral tablet, extended release: Dose : 100 mg = 1 tab(s), Oral, BID, do not crush or chew, # 180 tab(s), 3 Refill(s), Pharmacy: [facility], Shortness of breath, 177.8, cm, 11/28/23 13:54:00 EDT, Height, kg, 11/28/23 13:54:00 EDT, Dosing Weight Trulicity Pen 1.5 mg/0.5 mL subcutaneous solution: Dose : 1.5 mg =, Subcutaneous, qWeek, sent in absence of PCP, # 4 EA, 3 Refill(s), Pharmacy: [facility], 177.8, cm, 11/28/23 13:54:00EDT, Height, kg, 11/28/23 13:54:00 EDT, Dosing Weight Vistaril 25 mg oral capsule: Dose : 25 mg = 1 cap(s), Oral, QID, PRN as needed for anxiety, X 30 day(s), # 120 cap(s), 5 Refill(s), 06/09/24 16:10:00 EST, Pharmacy: [facility], 177.8, cm, 11/28/23 13:54:00 EDT, Height, kg, 11/28/23 13:54:00 EDT, Dosing Weight Xarelto 20 mg oral tablet: Dose : 20 mg = 1 tab(s), Oral, qHS, # 90 tab(s), 3 Refill(s), Pharmacy: [facility], 177.8, cm, 11/28/23 13:54:00 EDT, Height, 151.4, kg, 11/28/23 13:54:00 EDT, Dosing Weight allopurinol 100 mg oral tablet: Dose : 100 mg = 1 tab(s), Oral, qDay, # 90 tab(s), 3 Refill(s), Pharmacy: [facility], 177.8, cm, 11/28/23 13:54:00 EDT, Height, kg, 11/28/23 13:54:00 EDT, Dosing Weight cetirizine 10 mg oral tablet: Dose : 10 mg = 1 tab(s), Oral, Daily, # 90 tab(s), 3 Refill(s), Pharmacy: [facility], 177.8, cm, 11/28/23 13:54:00 EDT, Height, kg, 11/28/23 13:54:00 EDT,Dosing Weight nystatin 100,000 units/g topical cream: Apply 1 frida, Topical, BID, X 10 day(s), # 30 gram(s), 1 Refill(s), Pharmacy: [facility]/pharmacy #[id number], Cream, 177, cm, 01/12/24 9:42:00 EDT, Height, 148.6, kg, 01/12/24 9:42:00 EDT, Dosing Weight omeprazole 40 mg oral delayed release capsule: Dose : 40 mg = 1 cap(s), Oral, BID, before a meal., # 180 cap(s), 3 Refill(s), Pharmacy: [facility], 177.8, cm, 11/28/23 13:54:00 EDT, Height, kg, 11/28/23 13:54:00 EDT, Dosing Weight rosuvastatin 20 mg oral tablet: Dose : 20 mg = 1 tab(s), Oral, Daily, # 100 tab(s), 3 Refill(s), Pharmacy: [facility], 177.8, cm, 11/28/23 13:54:00 EDT, Height, kg, 11/28/23 13:54:00 EDT, Dosing Weight sacubitril-valsartan 49 mg-51 mg oral tablet: Dose = 1 tab(s), Oral, BID, # 180 tab(s), 3 Refill(s), Pharmacy: [facility], 177.8, cm, 11/28/23 13:54:00 EDT, Height, kg, 11/28/23 13:54:00 EDT, Dosing Weight spironolactone 25 mg oral tablet: Dose : 25 mg = 1 tab(s), Oral, qDay, # 90 tab(s), 3 Refill(s), Pharmacy: [facility], 177.8, cm, 11/28/23 13:54:00 EDT, Height, kg, 11/28/23 13:54:00 EDT, Dosing Weight tiZANidine 2 mg oral tablet: Dose : 2 mg = 1 tab(s), Oral, q8h, PRN as needed for muscle spasm, # 90 tab(s), 2 Refill(s), Pharmacy: [facility], 177.8, cm, 11/28/23 13:54:00 EDT, Height, kg, 11/28/23 13:54:00 EDT, Dosing Weight traZODone 100 mg oral tablet: Dose : 100 mg = 1 tab(s), Oral, qHS, # 90 tab(s), 3 Refill(s), Pharmacy: [facility], 177.8, cm, 11/28/23 13:54:00 EDT, Height, kg, 11/28/23 13:54:00 EDT, Dosing Weight Documented Medications Documented Tylenol: Oral, PRN as needed for pain, 0 Refill(s), Medications (16) Active Scheduled: (11) albuterol 0.083% Soln UD (2.5mg/3 mL) 2.5 mg 3 mL, Inhalation, QIDRT allopurinol 100 mg tablet 100 mg 1 tab(s), Oral, qDay budesonide 0.25 mg/2 mL Susp UD 0.25 mg 2 mL, Inhalation, BIDRT cefTRIAXone IVP syringe 2 gram(s) 20 mL, IV Push (INT), qDay dofetilide 250 mcg capsule 250 mcg 1 cap(s), Oral, BID fluoxetine 20 mg Capsule 20 mg 1 cap(s), Oral, qDay metoprolol succinate 100 mg ER tablet 100 mg 1 tab(s), Oral, BID omeprazole [address] capsule 40 mg 1 cap(s), Oral, BID Pharmacy To Dose 1 EA, Miscellaneous, Daily rosuvastatin 20 mg tablet 20 mg 1 tab(s), Oral, Daily traZODONE 100 mg Tablet 100 mg 1 tab(s), Oral, qHS Continuous: (1) heparin 25,000 unit(s) [6.71 unit(s)/kg/hr] + Dextrose 5% Premix Diluent 250 mL 250 mL, Intravenous, 10 mL/hr PRN: (4) codeine-guaifenesin 10 mg-100 mg/5 mL Syrup UD 5 mL 10 mL, Oral, q4h dextrose 50% Solution Disp syringe 50 mL 12.5 gram(s) 25 mL, IV Push, AsDirected heparin 5,000 units/mL (1 mL) vial 4,000 unit(s) 0.8 mL, IV Push, q6h metoprolol 1 mg/mL (5mL) vial 5 mg 5 mL, IV Push, q3h Problem list: Medical Asthma exacerbation / SNOMED CT 6320736824 / Confirmed Anxiety / SNOMED CT 65907663 / Confirmed Atopic dermatitis / SNOMED CT 94514725 / Confirmed BMI 45.0-49.9, adult / SNOMED CT 9021006067 / Confirmed Cardiomyopathy / SNOMED CT 234850232 / Confirmed Diabetes mellitus / SNOMED CT 705338961 / Confirmed Generalized anxiety disorder / SNOMED CT 29557182 / Confirmed Hyperlipidemia / SNOMED CT 01013383 / Confirmed Hypertension / SNOMED CT 6325170925 / Confirmed Insomnia / SNOMED CT 505373787 / Confirmed Moderate asthma / SNOMED CT 0375368991 / Confirmed Morbid obesity / SNOMED CT 656251906 / Confirmed Chewing tobacco nicotine dependence / SNOMED CT 78580457 / Confirmed Obstructive sleep apnea / SNOMED CT 369507317 / Confirmed Right knee pain / SNOMED CT 6710835209 / Confirmed Paroxysmal atrial fibrillation / SNOMED CT 354664481 / Confirmed Screening for ischemic heart disease / SNOMED CT 163090353 / Confirmed Screening for colon cancer / SNOMED CT 433064252 / Confirmed Prediabetes / SNOMED CT 3402404687 / Confirmed Right flank pain / SNOMED CT 970736941 / Confirmed Type 2 diabetes mellitus with hemoglobin A1c goal of less than 7.0% / SNOMED CT 061264051 / Confirmed Wheezing / SNOMED CT 50127750 / Confirmed, Active Problems (26) Anxiety Asthma exacerbation Atopic dermatitis Atrial fibrillation BMI 45.0-49.9, adult Cardiomyopathy Chewing tobacco nicotine dependence Diabetes mellitus Generalized anxiety disorder GERD (gastroesophageal reflux disease) Gout HTN (hypertension) Hyperlipidemia Hypertension Insomnia Moderate asthma Morbid obesity Obstructive sleep apnea Paroxysmal atrial fibrillation Prediabetes Right flank pain Right knee pain Screening for colon cancer Screening for ischemic heart disease Type 2 diabetes mellitus with hemoglobin A1c goal of less than 7.0% Wheezing Histories Past Medical History: No active or resolved past medical history items have been selected or recorded. Family History: Cancer Father Heart disease Mother Grandparent Stroke Father Procedure history: Cardioversion ([id number]) on 12/23/2022 at 52 Years. Echocardiogram ([id number]) on 11/11/2022 at 52 Years. Comments: 03/20/2023 17:58 Ella Flood MA (ABR-OE) 1. Left ventricle: The cavity size is at the upper limits of normal. Wall thickness is moderately to severely increased. Systolic function is moderately to severely reduced. The estimated ejection fraction is 30-35%. Diastolic dysfunction present but unable to assess severity. 2. Ventricular septum: Septal motion is dyssynergic. 3. Mitral valve: There is mild regurgitation. 4. Left atrium: The atrium is severely dilated. 5. Right ventricle: The cavity size is mildly increased. The RV systolic pressure by Doppler is 40 mm Hg. 6. Right atrium: The atrium is dilated. The estimated right atrial pressure is 15 mm Hg [facility] ([id number]). Comments: 07/11/2022 8:26 SHAHEEN Nunez - right Social History: Social & Psychosocial Habits Alcohol 01/12/2024 Use: Past Substance Abuse 01/12/2024 Use: Never Tobacco 01/12/2024 Tobacco Use: Former smoker, quit more 01/12/2024 Tobacco Use: Former smoker, quit more, former chewer of tobacco Type: Oral (Snuff, Chew) Smokeless tobacco use: Former smokeless tobacco, stopped snuff October 2022 Nutrition/Health 01/12/2024 Caffeine intake amount: pop 3 daily Physical Examination General: Alert and oriented. Airway: Normal temporomandibular joint mobility, Normal mouth, Normal throat, Normal neck range of motion, Trachea midline. Mallampati classification: II (soft palate, fauces, uvula visible). Head: Normocephalic. Dentition Evaluation: Intact, Own teeth, Denies loose/chipped teeth. Neck: Supple. Respiratory: Lungs are clear to auscultation, Respirations are non-labored. Cardiovascular: Normal rate, No murmur. Heart Sounds: Normal. Gastrointestinal: Soft. Musculoskeletal Normal range of motion. Integumentary: Intact, Warm, Dry. Neurologic: Alert, Oriented. Review / Management Results review: Lab results 02/01/2024 5:57 EDT Electrocardiogram - EKG - CV Completed (In Progress) 02/01/2024 5:42 EDT heparin Begin Bag 2.5 mL unit(s) Dextrose 5% Premix Diluent Begin Bag 250 mL mL 02/01/2024 3:57 EDT WBC 6.9 10^3/mcL RBC 5.02 10^6/mcL Hgb 13.0 G/dL Hct 40.5 % MCV 80.6 fL LOW MCH 26.0 pg LOW MCHC 32.2 G/dL RDW 16.2 % HI Platelet 161 10^3/mcL MPV 6.8 fL Neutrophil % 68.7 % Lymphocyte % 19.9 % LOW Monocyte % 9.4 % Eosinophil % 1.2 % Basophil % 0.8 % Neutrophil, Absolute 4.8 10^3/mcL Lymphocyte, Absolute 1.4 10^3/mcL Monocyte, Absolute 0.7 10^3/mcL Eosinophil, Absolute 0.1 10^3/mcL Basophil, Absolute 0.1 10^3/mcL APTT 46.1 seconds HI Glucose Level 124 mg/dL HI Sodium Level 137 mEq/L Potassium Level 3.4 mEq/L LOW Chloride 100 mEq/L CO2 32 mEq/L Electrolyte Balance 5.0 mEq/L BUN 17.0 mg/dL Creatinine Lvl (s) 1.15 mg/dL BUN/Creatinine Ratio 14.8 ratio Calcium Lvl 8.8 mg/dL Magnesium Lvl 2.2 mg/dL GFR Non- >60 ml/min/1.73sqm NA GFR >60 ml/min/1.73sqm NA Creatinine Clearance Calc 77.27 mL/min 02/01/2024 3:35 EDT Temperature Oral 36.4 DegC Heart Rate Monitored 80 bpm Respiratory Rate 18 br/min Systolic Blood Pressure Non-Invasive 105 mmHg Diastolic Blood Pressure Non-Invasive 62 mmHg Mean Arterial Pressure (NBP) 73 mmHg Reason For Taking VItal Signs Routine Primary Pain Intensity 0 Primary Pain Nonverbal Response Nods No Pain Scale Type 0-10 Pain scale Monitor Alarms On and Limits Checked Nail Bed Color Horse Pasture Capillary Refill < 2 seconds Heart Sounds ICU S1S2 Heart Rhythm Regular Cardiac Rhythm Sinus rhythm Monitoring Lead II, V5/MCL5 Alarms On and Functional Yes Heart Rate Alarm Set At - Low 50 Heart Rate Alarm Set At - High 120 Respirations Unlabored Respiratory Pattern Regular Breath Sounds Auscultated Anterior only All Lobes Breath Sounds Clear, Diminished Oxygen Therapy Room air Oxygen Saturation 93 % Abdomen Description Rounded Abdomen Palpation Non-Tender Bowel Continence No bowel movement Bowel Sounds All Quadrants Present Urinary Elimination Voiding, no difficulties All Extremity Description Horse Pasture Skin Temperature Warm Temperature All Extremities Warm Skin Description Horse Pasture, Dry Skin Integrity Intact Skin Turgor Non-Elastic Mucous Membrane Color Horse Pasture Mucous Membrane Description Moist Neurological Language Able to speak clearly Neurological Symptoms Patient denies Gait Unable to assess Extremity Movement Equal Swallowing Difficulty None Characteristics of Communication Appropriate Characteristics of Speech Clear Facial Symmetry Symmetric Level of Consciousness Alert Aspiration Risk None Eye Opening Response [place]ardon Spontaneously Best Motor Response Luis Felipe Obeys simple commands Best Verbal Response Luis Felipe Oriented Luis Felipe Coma Score 15 CLARA Yes Strength All Extremities Strong Affect/Behavior Appropriate, Calm Orientation Oriented x 4 Orientation Assessment Oriented x 4 Pt./Caregiver Remote Cont.Visual Monitor Verbalizes/Nonverbally indicates understanding Positioning Repositioned right side, Repositions self Activity Status ADL Awake Beds/Devices air fluidized bed Assistive Equipment elevated on pillows Activity Assistance Independent NPO Status Maintained Standard Safety ID band on, Allergy Band on, Call device within reach, Bed in low position High Risk Safety Identified as high risk, Fall ID band on, Room located near nursing station, Bed alert on Demonstrates Correct Call Light Use Yes omeprazole 40 mg mg Degrees Head of Bed Elevated 30 Stool Count 0 EA 02/01/2024 3:27 EDT Mechanical VTE Prophylaxis Education Not Done: Task Duplication (Not Done) Mechanical VTE Prophylaxis Education Not Done: Task Duplication (Not Done) Sequential Compression Device Not Done: Task Duplication (Not Done) Sequential Compression Device Not Done: Task Duplication (Not Done) Sequential Compression Device Form Not Done (Not Done) Sequential Compression Device Form Not Done (Not Done) 02/01/2024 2:54 EDT Pulmonary Status Not Done: Not Appropriate at this Time (Not Done) Surgical Status Not Done: Not Appropriate at this Time (Not Done) Chest X-Ray Not Done: Not Appropriate at this Time (Not Done) Respiratory Pattern (RT) Not Done: Not Appropriate at this Time (Not Done) Breath Sounds (RT) Not Done: Not Appropriate at this Time (Not Done) Cough (RT) Not Done: Not Appropriate at this Time (Not Done) Level of Activity Not Done: Not Appropriate at this Time (Not Done) Mental Status (RT) Not Done: Not Appropriate at this Time (Not Done) Respiratory Therapy Evaluation Score Not Done: Not Appropriate at this Time (Not Done) RT Assessment [Frequency/Schedule] Not Done: Not Appropriate at this Time (Not Done) RT Evaluation Steps Not Done: Not Appropriate at this Time (Not Done) 01/31/2024 23:44 EDT ceftriaxone 2 gram(s) gram(s) 01/31/2024 23:39 EDT allopurinol 100 mg mg omeprazole 40 mg mg rosuvastatin 20 mg mg traZODone 100 mg mg 01/31/2024 23:23 EDT Temperature Oral 36.4 DegC Heart Rate Monitored 84 bpm Respiratory Rate 20 br/min Systolic Blood Pressure Non-Invasive 100 mmHg Diastolic Blood Pressure Non-Invasive 65 mmHg Mean Arterial Pressure (NBP) 74 mmHg Reason For Taking VItal Signs Routine Primary Pain Intensity 0 Primary Pain Nonverbal Response Nods No Pain Scale Type 0-10 Pain scale Monitor Alarms On and Limits Checked Nail Bed Color Horse Pasture Capillary Refill < 2 seconds Heart Sounds ICU S1S2 Heart Rhythm Irregular Cardiac Rhythm Sinus rhythm Monitoring Lead II, V5/MCL5 IN Interval 0.16 second(s) QRS Duration 0.08 second(s) QT Interval 0.4 second(s) QTc Interval 0.46 second(s) Alarms On and Functional Yes Heart Rate Alarm Set At - Low 50 Heart Rate Alarm Set At - High 120 Respirations Unlabored Respiratory Pattern Regular Breath Sounds Auscultated Anterior only All Lobes Breath Sounds Clear, Diminished Oxygen Therapy Room air Oxygen Saturation 94 % Abdomen Description Rounded Abdomen Palpation Non-Tender Bowel Continence No bowel movement Bowel Sounds All Quadrants Present Tolerating Oral Intake Yes Urinary Elimination Voiding, no difficulties All Extremity Description Horse Pasture Skin Temperature Warm Temperature All Extremities Warm Skin Description Horse Pasture, Dry Skin Integrity Intact Skin Turgor Non-Elastic Mucous Membrane Color Horse Pasture Mucous Membrane Description Moist Neurological Language Able to speak clearly Neurological Symptoms Patient denies Gait Unable to assess Extremity Movement Equal Swallowing Difficulty None Characteristics of Communication Appropriate Characteristics of Speech Clear Facial Symmetry Symmetric Level of Consciousness Alert Aspiration Risk None Eye Opening Response Luis Felipe Spontaneously Best Motor Response Chardon Obeys simple commands Best Verbal Response Luis Felipe Oriented Chardon Coma Score 15 CLARA Yes Strength All Extremities Strong Affect/Behavior Appropriate, Calm Orientation Oriented x 4 Orientation Assessment Oriented x 4 Pt./Caregiver Remote Cont.Visual Monitor Verbalizes/Nonverbally indicates understanding Positioning Repositioned left side, Repositions self Activity Status ADL Awake Beds/Devices air fluidized bed Assistive Equipment elevated on pillows Activity Assistance Independent NPO Status Initiated Standard Safety ID band on, Allergy Band on, Call device within reach, Bed in low position High Risk Safety Identified as high risk, Fall ID band on, Room located near nursing station, Bed alert on Demonstrates Correct Call Light Use Yes Degrees Head of Bed Elevated 30 Adaptive Feeding Equipment None Appetite Good Eating Difficulties None Oral Intake 100 mL 01/31/2024 22:20 EDT Notify date/time 01/31/2024 22:20 Provider Notified 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 It is on his home med list 01/31/2024 21:50 EDT heparin 4,000 unit(s) unit(s) 01/31/2024 21:47 EDT heparin Begin Bag 2.5 mL unit(s) Dextrose 5% Premix Diluent Begin Bag 250 mL mL 01/31/2024 21:39 EDT Apical Heart Rate 88 bpm metoprolol 100 mg mg Oral Intake 100 mL 01/31/2024 19:30 EDT Temperature Oral 36.5 DegC Heart Rate Monitored 80 bpm Respiratory Rate 16 br/min Reason For Taking VItal Signs Routine Primary Pain Intensity 0 Primary Pain Nonverbal Response Nods No Pain Scale Type 0-10 Pain scale Monitor Alarms On and Limits Checked Nail Bed Color Horse Pasture Capillary Refill < 2 seconds Heart Sounds ICU S1S2 Heart Rhythm Irregular Dorsalis Pedis Pulse, Left 1+ Thready Dorsalis Pedis Pulse, Right 1+ Thready Radial Pulse, Left 2+ Normal Radial Pulse, Right 2+ Normal Pretibial edema Bilateral Edema Ratin+ trace/2mm Cardiac Rhythm Atrial fibrillation Monitoring Lead II, V5/MCL5 Alarms On and Functional Yes Heart Rate Alarm Set At - Low 50 Heart Rate Alarm Set At - High 120 Respirations Unlabored Respiratory Pattern Regular Breath Sounds Auscultated Anterior and posterior All Lobes Breath Sounds Clear, Diminished Cough None Oxygen Therapy Room air Tracheal Position Midline Abdomen Description Rounded Abdomen Palpation Non-Tender Bowel Continence No bowel movement Bowel Sounds All Quadrants Present Tolerating Oral Intake Yes Urinary Elimination Voiding, no difficulties Facial Movement Makes facial grimaces All Extremity Description Horse Pasture Skin Temperature Warm Temperature All Extremities Warm Skin Description Horse Pasture, Dry Skin Integrity Intact Skin Turgor Non-Elastic Mucous Membrane Color Horse Pasture Mucous Membrane Description Moist Sensory Perception [place] No impairment Moisture [place] Occasionally moist Activity [place] Walks occasionally Mobility [place] Slightly limited Nutrition [place] Adequate Friction and Shear [place] Potential problem [place] Score 18 Hospital Acquired Pressure Injury Risk Low risk (score 15-18) Continuous IV Infusions heparin@9units/kg/hr Antecubital Left 01/30/2024 18 gauge Peripheral IV Activity: Assessed Peripheral IV Dressing Condition: Clean, Dry, Intact Peripheral IV Dressing Activity: Transparent dressing Peripheral IV Line Status/Patency: Flushes easily Peripheral IV Site Condition: No complications Peripheral IV Equipment: IV Pump Neurological Language Able to speak clearly Neurological Symptoms Patient denies Gait Unable to assess Extremity Movement Equal Swallowing Difficulty None Characteristics of Communication Appropriate Characteristics of Speech Clear Facial Symmetry Symmetric Level of Consciousness Alert Aspiration Risk None Eye Opening Response Luis Felipe Spontaneously Best Motor Response Luis Felipe Obeys simple commands Best Verbal Response Luis Felipe Oriented Luis Felipe Coma Score 15 CLARA Yes Left Pupil Description Regular, Round Right Pupil Description Regular, Round Left Pupil Reaction Brisk Right Pupil Reaction Brisk Pupil Size, Left 3 mm Pupil Size, Right 3 mm Strength All Extremities Strong Left Upper Extremity Sensation Intact Right Upper Extremity Sensation Intact Left Lower Extremity Sensation Intact Right Lower Extremity Sensation Intact CN V Facial Sensation Light touch equal bilaterally CN VII Facial Expression and Symmetry Facial movement symmetrical CN VIII Hearing Spoken word equally audible left/right CN IX, X Swallowing, Gag Reflex Swallowing present [place] Screen Daily History of Fall in Last 3 Months [place] No Presence of Secondary Diagnosis [place] Yes Use of Ambulatory Aid [place] None, bedrest, wheelchair, nurse IV/PRN Adapter Fall Risk [place] Yes Gait Weak or Impaired Fall Risk [place] Weak Mental Status Fall Risk [place] Oriented to own ability [place] Fall Risk Score 45 Violence Risk Confused No Violence Risk Irritable No Violence Risk Boisterous No Violence Risk Verbal Threats No Violence Risk Physical Threats No Violence Risk Attacking Objects No Violence Risk Predictor Score 0 Violence Risk Intervention None Violence Risk Current Interventions None Affect/Behavior Appropriate, Calm Orientation Oriented x 4 BMAT Existing Patient Condition/Safety No order for Strict Bedrest BMAT Level 1: Sit and Shake Sit, side bed/reach midline/shake hands BMAT Level 2: Stretch and Point Seated position, straighten 1 knee; Flex ankle & point toes BMAT Level 3: Stand Stand up w/o assist/Use of assist device BMAT Mobility Level 3 Orientation Assessment Oriented x 4 Pt./Caregiver Remote Cont.Visual Monitor Verbalizes/Nonverbally indicates understanding Positioning Repositioned left side, Repositions self Activity Status ADL Awake Beds/Devices low air loss bed Assistive Equipment elevated on pillows Activity Assistance Independent Nurse Safety Checks q2hrs Performed 7pm-7am Standard Safety ID band on, Allergy Band on, Call device within reach, Bed in low position High Risk Safety Identified as high risk, Fall ID band on, Room located near nursing station, Bed alert on Demonstrates Correct Call Light Use Yes RN Coordination of Care 7pm-7am Degrees Head of Bed Elevated 30 Adaptive Feeding Equipment None Appetite Good Eating Difficulties None Oral Intake 100 mL Stool Count 0 EA 01/31/2024 19:10 EDT Mechanical VTE Prophylaxis Education Not Done: Not Appropriate at this Time (Milind) Sequential Compression Device Not Done: Not Appropriate at this Time (Not Done) Sequential Compression Device Form Not Done (Not Done) 01/31/2024 19:09 EDT Skin Assessment Verification Not Done: Not Appropriate at this Time (Not Done) Skin Assessment Verification Not Done: Not Appropriate at this Time (Not Done) Mechanical VTE Prophylaxis Education Not Done: Not Appropriate at this Time (Not Done) Mechanical VTE Prophylaxis Education Not Done: Not Appropriate at this Time (Not Done) Mechanical VTE Prophylaxis Education Not Done: Not Appropriate at this Time (Not Done) Mechanical VTE Prophylaxis Education Not Done: Not Appropriate at this Time (Not Done) Sequential Compression Device Not Done: Not Appropriate at this Time (Not Done) Sequential Compression Device Not Done: Not Appropriate at this Time (Not Done) Sequential Compression Device Not Done: Not Appropriate at this Time (Not Done) Sequential Compression Device Not Done: Not Appropriate at this Time (Not Done) Sequential Compression Device Form Not Done (Not Done) Sequential Compression Device Form Not Done (Not Done) Sequential Compression Device Form Not Done (Not Done) Sequential Compression Device Form Not Done (Not Done) 01/31/2024 19:07 EDT Peripheral Pulse Rate 78 bpm Respiratory Rate 20 br/min Respirations Unlabored Breath Sounds Auscultated Anterior only All Lobes Breath Sounds Clear, Diminished Aerosol Delivery Device Small volume nebulizer Aerosol Treatment Route Mouth piece Cough and Deep Breathe Done Spontaneous Cough Yes Cough Dry, Non-Productive Oxygen Saturation 92 % LOW Respiratory Treatment Charge Two aerosol treatments Level of Consciousness Alert albuterol-ipratropium 3 mL mL budesonide 0.25 mg mg 01/31/2024 19:05 EDT dofetilide 250 mcg mcg 01/31/2024 18:38 EDT Heart Rate Monitored 81 bpm Respiratory Rate 22 br/min HI Systolic Blood Pressure Non-Invasive 108 mmHg Diastolic Blood Pressure Non-Invasive 65 mmHg Mean Arterial Pressure (NBP) 79 mmHg Oxygen Therapy Room air Oxygen Saturation 91 % LOW 01/31/2024 17:44 EDT APTT 34.5 seconds 01/31/2024 16:20 EDT Echocardiogram, Adult - CV Signed 01/31/2024 15:56 EDT Antecubital Left 01/30/2024 18 gauge Peripheral IV Activity: Assessed Peripheral IV Dressing Condition: Clean, Dry, Intact Peripheral IV Dressing Activity: Transparent dressing Peripheral IV Line Status/Patency: Flushes easily Peripheral IV Site Condition: No complications Peripheral IV Equipment: IV Pump 01/31/2024 15:53 EDT Temperature Oral 36.6 DegC Heart Rate Monitored 99 bpm Respiratory Rate 20 br/min Systolic Blood Pressure Non-Invasive 104 mmHg Diastolic Blood Pressure Non-Invasive 66 mmHg Mean Arterial Pressure (NBP) 79 mmHg Primary Pain Intensity 0 Pain Scale Type 0-10 Pain scale Monitor Alarms On and Limits Checked Nail Bed Color Horse Pasture Capillary Refill < 2 seconds Heart Sounds ICU S1S2 Heart Rhythm Irregular Dorsalis Pedis Pulse, Left 1+ Thready Dorsalis Pedis Pulse, Right 1+ Thready Posttibial Pulse, Left 1+ Thready Posttibial Pulse, Right 1+ Thready Radial Pulse, Left 2+ Normal Radial Pulse, Right 2+ Normal Pretibial edema Bilateral Edema Ratin+ trace/2mm, Non-pitting Cardiac Rhythm Atrial fibrillation Monitoring Lead II, V1/MCL1 Alarms On and Functional Yes Heart Rate Alarm Set At - Low 50 Heart Rate Alarm Set At - High 120 NSBP Alarm Low 90 NSBP Alarm High 160 HI Respirations Unlabored Respiratory Pattern Regular Patient Airway Status Patent without support Breath Sounds Auscultated Anterior only All Lobes Breath Sounds Clear, Diminished, Equal Oxygen Therapy Room air Oxygen Saturation 94 % Abdomen Description Non-distended, Soft Abdomen Palpation Non-Tender Bowel Sounds All Quadrants Present Urinary Elimination Voiding, no difficulties Facial Movement Symmetric resting/crying All Extremity Description Normal for ethnicity Skin Temperature Warm Temperature All Extremities Warm Skin Description Normal for ethnicity Skin Integrity Pressure points intact Skin Turgor Non-Elastic Mucous Membrane Color Horse Pasture Mucous Membrane Description Moist Neurological Language Able to speak clearly Neurological Symptoms Patient denies Extremity Movement Equal Swallowing Difficulty None Characteristics of Communication Appropriate Characteristics of Speech Clear Facial Symmetry Symmetric Level of Consciousness Alert Aspiration Risk None Eye Opening Response Luis Felipe Spontaneously Best Motor Response [place] Obeys simple commands Best Verbal Response Luis Felipe Oriented [place] Coma Score 15 CLARA Yes Left Pupil Description Regular, Round Right Pupil Description Regular, Round Left Pupil Reaction Brisk Right Pupil Reaction Brisk Pupil Size, Left 3 mm Pupil Size, Right 3 mm Strength All Extremities Strong CN V Facial Sensation Corneal reflex present CN VII Facial Expression and Symmetry Facial movement symmetrical CN IX, X Swallowing, Gag Reflex Swallowing present Affect/Behavior Appropriate, Calm, Cooperative Orientation Oriented x 4 Positioning Repositioned left side, Repositions self Activity Status ADL Awake Beds/Devices low air loss bed Assistive Equipment elevated on pillows Activity Assistance Independent Standard Safety ID band on, Call device within reach, Bed in low position, Wheels locked, Upper/Half-Length side-rails up, Safety level maintained, Hazards removed from floor, Precautions maintained heparin 9 unit(s)/kg/hr unit(s) Dextrose 5% Premix Diluent Dextrose 5% Premix Diluent mL Degrees Head of Bed Elevated 30 01/31/2024 15:38 EDT [facility] Current Living Situation I have a steady place to live [facility] Current Issues Living Environment None [facility] Worried Food Running Out P12M Never true [facility] Food Gone, No Money To Buy P12M Never true [facility] No Transport Med/Appt/Work P12M No [facility]HC Utilities Threaten Shut Off P12M No [facility] Anyone Physically Hurt You Never (1) C Anyone Insult Or Talk Down To You Never (1) C Anyone Threaten You With Harm Never (1) [facility] Anyone Scream Or Curse At You Never (1) [facility] Safety Total Score 4 Living Situation Lives with family Discharge To, Anticipated Home independently Anticipated Discharge Date 02/02/2024 Transition Planning Note Transition Planning Initial Assessment 01/31/2024 15:36 EDT Primary Care Phone Message Transition of Care sent from [facility] 01/31/2024 14:59 EDT heparin 9,000 unit(s) unit(s) Dextrose 5% Premix Diluent 90 mL mL 01/31/2024 14:43 EDT Oil Trough Body Weight 72.7 kg Home Diet Regular Weight Chg, Unintentional Nutrition Hx Weight stable per [place] history Appetite Good Nutrition Plan of Care Dietitian follow up/monitor, Encourage PO feedings, Participate in team conference Nutrition Follow-Up Needed Yes Days until Rig Supervisor Follow Up Seven days Adult Nutrition Initial Assessment/Plan Adult Nutrition Assessment/Plan 01/31/2024 14:22 EDT Transition of Care Note Transition of Care sent from [facility] 01/31/2024 14:00 EDT Hand Right 01/30/2024 20 gauge Peripheral IV Activity: Discontinued Peripheral IV Removal: Catheter intact, no resistance Peripheral IV Removal Reason: Unintentionally 01/31/2024 13:30 EDT Heart Rate Monitored 91 bpm Respiratory Rate 16 br/min Systolic Blood Pressure Non-Invasive 102 mmHg Diastolic Blood Pressure Non-Invasive 71 mmHg Mean Arterial Pressure (NBP) 79 mmHg Reason For Taking VItal Signs Routine Primary Pain Intensity 0 Primary Pain Nonverbal Response Nods No Pain Scale Type 0-10 Pain scale Monitor Alarms On and Limits Checked Nail Bed Color Horse Pasture Capillary Refill < 2 seconds Heart Rhythm Irregular Pretibial edema Bilateral Edema Ratin+ trace/2mm Cardiac Rhythm Atrial fibrillation Monitoring Lead avL, V4/MCL4 Alarms On and Functional Yes Respirations Unlabored Respiratory Pattern Regular Breath Sounds Auscultated Anterior only All Lobes Breath Sounds Clear, Diminished Oxygen Therapy Room air Oxygen Saturation 94 % Abdomen Description Symmetric, Soft, Rounded Abdomen Palpation Non-Tender, Soft Bowel Sounds All Quadrants Present All Extremity Description Normal for ethnicity Temperature All Extremities Warm Skin Description Normal for ethnicity Mucous Membrane Color Horse Pasture Mucous Membrane Description Moist Hand Right 01/30/2024 20 gauge Peripheral IV Activity: Assessed Peripheral IV Equipment: PRN Adaptor Antecubital Left 01/30/2024 18 gauge Peripheral IV Activity: Assessed Peripheral IV Equipment: IV Pump Neurological Symptoms Patient denies Level of Consciousness Alert CLARA Yes Strength All Extremities Strong Affect/Behavior Appropriate, Calm, Cooperative Orientation Oriented x 4, Follows simple commands Positioning Repositioned right side, Repositions self, Encouraged/reinforced importance of turning Activity Status ADL Awake Beds/Devices low air loss bed, turn and position system Assistive Equipment elevated on pillows Activity Assistance Minimum assistance Standard Safety Safety level maintained High Risk Safety Room check performed Demonstrates Correct Call Light Use Yes heparin 9 unit(s)/kg/hr unit(s) Dextrose 5% Premix Diluent Dextrose 5% Premix Diluent mL Degrees Head of Bed Elevated 30 01/31/2024 13:00 EDT Heart Rate Monitored 88 bpm Systolic Blood Pressure Non-Invasive 92 mmHg Diastolic Blood Pressure Non-Invasive 65 mmHg Mean Arterial Pressure (NBP) 75 mmHg Oxygen Saturation 92 % LOW albuterol-ipratropium Not Done: Patient Refused (Not Done) 01/31/2024 12:45 EDT Heart Rate Monitored 84 bpm Systolic Blood Pressure Non-Invasive 97 mmHg Diastolic Blood Pressure Non-Invasive 73 mmHg Mean Arterial Pressure (NBP) 79 mmHg 01/31/2024 12:31 EDT Transesophageal Echocardiogram - CV Ordered (In Progress) 01/31/2024 12:30 EDT Heart Rate Monitored 90 bpm Systolic Blood Pressure Non-Invasive 100 mmHg Diastolic Blood Pressure Non-Invasive 59 mmHg LOW Mean Arterial Pressure (NBP) 73 mmHg Oxygen Saturation 93 % 01/31/2024 12:15 EDT Heart Rate Monitored 89 bpm Systolic Blood Pressure Non-Invasive 122 mmHg Diastolic Blood Pressure Non-Invasive 96 mmHg HI Mean Arterial Pressure (NBP) 105 mmHg Oxygen Saturation 92 % LOW heparin 9 unit(s)/kg/hr unit(s) Dextrose 5% Premix Diluent Dextrose 5% Premix Diluent mL 01/31/2024 12:00 EDT Heart Rate Monitored 81 bpm Systolic Blood Pressure Non-Invasive 104 mmHg Diastolic Blood Pressure Non-Invasive 82 mmHg Mean Arterial Pressure (NBP) 89 mmHg Oxygen Saturation 93 % Continuous IV Infusions Levo off 01/31/2024 11:30 EDT Temperature Oral 36.5 DegC Heart Rate Monitored 86 bpm Respiratory Rate 16 br/min Systolic Blood Pressure Non-Invasive 99 mmHg Diastolic Blood Pressure Non-Invasive 79 mmHg Mean Arterial Pressure (NBP) 85 mmHg Reason For Taking VItal Signs Routine Primary Pain Intensity 0 Primary Pain Nonverbal Response Nods No (Modified) Pain Scale Type 0-10 Pain scale Monitor Alarms On and Limits Checked Nail Bed Color Horse Pasture Capillary Refill < 2 seconds Heart Rhythm Irregular Dorsalis Pedis Pulse, Left 1+ Thready Dorsalis Pedis Pulse, Right 1+ Thready Posttibial Pulse, Left 1+ Thready Posttibial Pulse, Right 1+ Thready Radial Pulse, Left 1+ Thready Radial Pulse, Right 1+ Thready Pretibial edema Bilateral Edema Ratin+ trace/2mm Cardiac Rhythm Atrial fibrillation Monitoring Lead II, V5/MCL5 Alarms On and Functional Yes Heart Rate Alarm Set At - Low 50 Heart Rate Alarm Set At - High 120 NSBP Alarm Low 90 NSBP Alarm High 160 HI Respirations Unlabored Respiratory Pattern Regular Breath Sounds Auscultated Anterior only All Lobes Breath Sounds Clear, Diminished Oxygen Therapy Nasal cannula 0L-6L Oxygen Saturation 95 % Oxygen Flow Rate 2 Abdomen Description Symmetric, Soft, Rounded Abdomen Palpation Non-Tender, Soft Bowel Sounds All Quadrants Present Facial Movement Symmetric resting/crying All Extremity Description Normal for ethnicity Skin Temperature Warm Temperature All Extremities Warm Skin Description Normal for ethnicity Skin Integrity Pressure points intact Skin Turgor Non-Elastic Mucous Membrane Color Horse Pasture Mucous Membrane Description Moist Continuous IV Infusions Levo @ 1 Hand Right 01/30/2024 20 gauge Peripheral IV Activity: Assessed Peripheral IV Dressing Condition: Clean, Dry, Intact Peripheral IV Dressing Activity: Transparent dressing Peripheral IV Line Status/Patency: Flushes easily Peripheral IV Line Care: Secured with tape Peripheral IV Site Condition: No complications Peripheral IV Equipment: PRN Adaptor Antecubital Left 01/30/2024 18 gauge Peripheral IV Activity: Assessed Peripheral IV Dressing Condition: Clean, Dry, Intact Peripheral IV Dressing Activity: Transparent dressing Peripheral IV Line Status/Patency: Flushes easily Peripheral IV Line Care: Secured with tape Peripheral IV Site Condition: No complications Peripheral IV Equipment: IV Pump Neurological Language Able to speak clearly, Follows simple commands Neurological Symptoms Patient denies Gait Unable to assess Extremity Movement Equal Swallowing Difficulty None Characteristics of Communication Appropriate Characteristics of Speech Clear Facial Symmetry Symmetric Level of Consciousness Alert Aspiration Risk None Eye Opening Response Luis Felipe Spontaneously Best Motor Response Luis Felipe Obeys simple commands Best Verbal Response Luis Felipe Oriented Luis Felipe Coma Score 15 CLARA Yes Left Pupil Description Regular, Round Right Pupil Description Regular, Round Left Pupil Reaction Brisk Right Pupil Reaction Brisk Pupil Size, Left 2 mm Pupil Size, Right 2 mm Strength All Extremities Strong Left Upper Extremity Sensation Intact Right Upper Extremity Sensation Intact Left Lower Extremity Sensation Intact Right Lower Extremity Sensation Intact CN V Facial Sensation Corneal reflex present CN VII Facial Expression and Symmetry Facial movement symmetrical CN VIII Hearing Spoken word equally audible left/right CN IX, X Swallowing, Gag Reflex Swallowing present Affect/Behavior Appropriate, Calm, Cooperative Orientation Oriented x 4, Follows simple commands Positioning Repositioned back, Repositions self, Encouraged/reinforced importance of turning Activity Status ADL Awake Beds/Devices low air loss bed, turn and position system Assistive Equipment elevated on pillows Activity Assistance Minimum assistance Skin Care Preventative Intervention(s) heel(s)s elevated, padded oxygen tubing, turn and position system Standard Safety Safety level maintained High Risk Safety Room check performed Demonstrates Correct Call Light Use Yes heparin 7 unit(s)/kg/hr unit(s) Dextrose 5% Premix Diluent Dextrose 5% Premix Diluent mL Degrees Head of Bed Elevated 30 01/31/2024 11:00 EDT Heart Rate Monitored 76 bpm Systolic Blood Pressure Non-Invasive 95 mmHg Diastolic Blood Pressure Non-Invasive 72 mmHg Mean Arterial Pressure (NBP) 81 mmHg 01/31/2024 10:30 EDT Heart Rate Monitored 91 bpm Systolic Blood Pressure Non-Invasive 100 mmHg Diastolic Blood Pressure Non-Invasive 67 mmHg Mean Arterial Pressure (NBP) 79 mmHg Oxygen Saturation 93 % 01/31/2024 10:25 EDT APTT 33.9 seconds 01/31/2024 10:06 EDT Apical Heart Rate 92 bpm metoprolol 100 mg mg 01/31/2024 10:00 EDT Heart Rate Monitored 88 bpm Systolic Blood Pressure Non-Invasive 90 mmHg Diastolic Blood Pressure Non-Invasive 64 mmHg Mean Arterial Pressure (NBP) 74 mmHg Oxygen Therapy Nasal cannula 0L-6L Oxygen Saturation 88 % Oxygen Flow Rate 2 01/31/2024 9:45 EDT Heart Rate Monitored 85 bpm Systolic Blood Pressure Non-Invasive 93 mmHg Diastolic Blood Pressure Non-Invasive 55 mmHg LOW Mean Arterial Pressure (NBP) 68 mmHg Oxygen Saturation 89 % 01/31/2024 9:30 EDT Heart Rate Monitored 86 bpm Respiratory Rate 16 br/min Reason For Taking VItal Signs Routine Primary Pain Intensity 0 Primary Pain Nonverbal Response Nods No Pain Scale Type 0-10 Pain scale Monitor Alarms On and Limits Checked Nail Bed Color Horse Pasture Capillary Refill < 2 seconds Heart Rhythm Irregular Pretibial edema Bilateral Edema Ratin+ trace/2mm Cardiac Rhythm Atrial fibrillation Monitoring Lead II, V6/MCL6 Alarms On and Functional Yes Respirations Unlabored Respi (more content not included)... [id number] NoteSINUS RHYTHM IVCD MISSING LEAD(S): V1,V2,V3,V4,V5 Electronic Signature: MOY WATTS MD 02/01/2024 11:10:55[facility] 09[facility] Cardiology Consult note Date of Service 01/31/2024 Reason for Consultation A-fib on Tikosyn Referring Physician Dr. Paulino History of Present Illness CVC: Dr. 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 Patient had a recent COVID infection on approximately 2 weeks ago confirmed with home test after experiencing URT symptoms. Had been working out in the yard yesterday and in the afternoon while getting up from seated position began to feel dizzy and lightheaded falling backwards onto his sofa. No LOC. Denies chest pain/palpitations but does endorse associated shortness of breath, diaphoresis. Previous similar episodes. Thinks he was also dehydrated. Compliant with Xarelto with last dose being a.m. of 01/29. Initial vitals showing tachycardia of 133, BP 90/76 subsequently became hypotensive at 68/48. GivenCardizem subsequently came hypotensive, did not tolerate Cardizem drip. Patient transferred to [facility] for further management. Placed on Levophed. Troponins negative x 3, proBNP 1822. COVID-negat jimmy. Echocardiogram ordered. When seen this a.m., no complaints of chest pain, shortness of breath, dizziness or palpitations. Cardiac investigations: DCCV 12/15/2022 Last seen in [facility] office November 2023 when he was in sinus rhythm. Echocardiogram 03/30/2023: Concentric LVH, systolic function probably mildly reduced, RWMA cannot beexcluded. Small pericardial effusion Echo 11/11/2022: EF 30-35%, mild MR, severely dilated LA, RSVP 40 Review of Systems 11 point review of systems negative unless otherwise noted in HPI Physical Exam Vitals and Measurements T: 36.4 C (Oral) TMIN: 36.4 C (Oral) TMAX: 36.5 C (Oral) HR: 82 (Monitored) RR: 16 BP: 89/72 SpO2: 94% HT: 175 cm WT: 149.1 kg BMI: 48.69 Weight Dosing Weight: 149.1 kg (01/31/24) General Appearance: Patient comfortably lying on bed, not in acute distress Head: Normocephalic, atraumatic EENT: PERRLA, Neck: Supple, no JVD, no mass Cardiac: s1s2,RRR, no murmurs or rubs or gallops Lungs: Clear to auscultation bilaterally, no wheeze or rhonchi or crackles Abdomen: Soft , Nontender, no organomegaly, bowel sounds heard Musculoskeletal: Full ROM, no gross deformities Extremities: No rash or ulcers. 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 Troponins negative. Currently rate controlled. Home Toprol XL has been resumed at 100 mg twice daily. Compliant with Xarelto at home with last dose the a.m. of 01/29 (day of presentation), however does appear IV anticoagulation started at 4:00 in this AM Plan: Will plan for NELDA and cardioversion tomorrow N.p.o. at midnight We will resume home Tikosyn dose at 250 mg twice daily. Monitor QTc Follow-up echocardiogram already ordered No for further ischemic evaluation at this time Continue anticoagulation with IV heparin. Will continue to follow. Patient seen with tire recapping machine operator Dr. Hartley who agreed with plan. Please see addendum for changes. Problem List/Past Medical History Ongoing Anxiety Asthma exacerbation Atopic dermatitis BMI 45.0-49.9, adult Cardiomyopathy Chewing tobacco nicotine dependence Diabetes mellitus Generalized anxiety disorder Hyperlipidemia Hypertension Insomnia Moderate asthma Morbid obesity Obstructive sleep apnea Paroxysmal atrial fibrillation Prediabetes Right flank pain Right knee pain Screening for colon cancer Screening for ischemic heart disease Type 2 diabetes mellitus with hemoglobin A1c goal of less than 7.0% Wheezing Procedure/Surgical History Cardioversion: 12/23/22 Echocardiogram: 11/11/22 Elbow Medications Inpatient budesonide 0.25 mg/2 mL inhalation suspension, 0.25 mg= 2 mL, Inhalation, BIDRT cefTRIAXone, 2 gram(s)= 20 mL, IV Push (INT), qDay codeine-guaifenesin 10 mg-100 mg/5 mL oral syrup, 10 mL, Oral, q4h, PRN Dextrose 50% IV Push, 12.5 gram(s)= 25 mL, IV Push, AsDirected, PRN DuoNeb, 3 mL, Inhalation, TIDRT Heparin for IV 25,000 unit(s) [6.71 unit(s)/kg/hr] + Dextrose 5% Premix Diluent 250 mL Heparin HBW CARDIAC Bolus 5000 units/mL, 4000 unit(s)= 0.8 mL, 60 unit(s)/kg, IV Push, q6h, PRN metoprolol tartrate 1 mg/mL injectable solution, 5 mg= 5 mL, IV Push, q3h, PRN phenylephrine for IV 50 mg [100 mcg/min] + sodium chloride 0.9% IV solution (T) 250 mL Protonix IV Push, 40 mg, IV Push, qDayAC Toprol-XL, 100 mg= 1 tab(s), Oral, BID Home allopurinol 100 mg oral tablet, 100 mg= 1 tab(s), Oral, qDay, 3 refills Blood Glucose Test Machine, See Instructions Blood Glucose Test Strips, See Instructions, 11 refills cetirizine 10 mg oral tablet, 10 mg= 1 tab(s), Oral, Daily, 3 refills FLUoxetine 20 mg oral capsule, 20 mg= 1 cap(s), Oral, qDay, 3 refills Lancets, See Instructions, 11 refills Lasix 40 mg oral tablet, See Instructions, 3 refills, Not taking nystatin 100,000 units/g topical cream, 1 frida, Topical, BID, 1 refills omeprazole 40 mg oral delayed release capsule, 40 mg= 1 cap(s), Oral, BID, 3 refills rosuvastatin 20 mg oral tablet, 20 mg= 1 tab(s), Oral, Daily, 3 refills sacubitril-valsartan 49 mg-51 mg oral tablet, 1 tab(s), Oral, BID, 3 refills spironolactone 25 mg oral tablet, 25 mg= 1 tab(s), Oral, qDay, 3 refills Symbicort 80 mcg-4.5 mcg/inh Inhaler, 2 puff(s), Inhalation, BID, 3 refills Tikosyn 250 mcg oral capsule, 250 mcg= 1 cap(s), Oral, BID, 3 refills tiZANidine 2 mg oral tablet, 2 mg= 1 tab(s), Oral, q8h, PRN, 2 refills Toprol-XL 100 mg oral tablet, extended release, 100 mg= 1 tab(s), Oral, BID, 3 refills traZODone 100 mg oral tablet, 100 mg= 1 tab(s), Oral, qHS, 3 refills Trulicity Pen 1.5 mg/0.5 mL subcutaneous solution, 1.5 mg, Subcutaneous, qWeek, 3 refills Tylenol, Oral, PRN Vistaril 25 mg oral capsule, 25 mg= 1 cap(s), Oral, QID, PRN, 5 refills Xarelto 20 mg oral tablet, 20 mg= 1 tab(s), Oral, qHS, 3 refills Allergies NKA Social History Alcohol Use: Past., 07/11/2022 Nutrition/Health Caffeine intake amount: pop 3 daily., 11/08/2022 Substance Abuse Use: Never., 07/11/2022 Tobacco Nicotine Use: Former smoker, quit more than 30 days ago, former chewer of tobacco. Type: Oral (Snuff, Chew). Smokeless Tobacco Use: Former smokeless tobacco user, quit more than 30 days ago, stopped snuff October 2022., 01/12/2024 Nicotine Use: Former smoker, quit more than 30 days ago., 07/11/2022 Family History Cancer: Father. Heart disease: Mother and Grandparent. Stroke: Father. Health Status Family Member(s) Immunizations pneumococcal 13-valent conjugate vaccine: 0.5 unknown unit (04/12/22) SARS-CoV-2 (COVID-19) mRNA-1273 vaccine: 0 unknown unit (09/11/20) SARS-CoV-2 (COVID-19) mRNA-1273 vaccine: 0 unknown unit (08/14/20) Digitally Signed by MICHELLE HENRY MD on 01/31/2024 08:59 AM Digitally Signed by MICHELLE HENRY MD on 01/31/2024 12:53 PM [id number]* Exam Date Time Procedure Performing Provider Status 01/31/24 4:20 PM Echocardiogram, Adult - CV Auth (Verified) [facility] 09-04-2024 Note. MICRO - Microbiology PROCEDURE: Blood Culture (bacterial) [*1] SOURCE: Blood BODY SITE: COLLECTED DATE/TIME: 01/30/2024 21:21 EDT RECEIVED DATE/TIME: 01/31/2024 14:24 EDT START DATE/TIME: 01/31/2024 14:24 EDT FREE TEXT SOURCE: PRELIMINARY REPORTS Preliminary Report [] Verified Date/Time/Personnel: 01/31/2024 14:59 EDT Culture has been received in lab and is no growth to date. Routine cultures are held for 5 days. Performing Locations *1: This test was performed at: [facility], [address] [place] [address], [id number] , [facility] ([place])01-31-2024 Note. MICRO - Microbiology PROCEDURE: Blood Culture (bacterial) [*1] SOURCE: Blood BODY SITE: COLLECTED DATE/TIME: 01/30/2024 21:21 EDT RECEIVED DATE/TIME: 01/31/2024 14:24 EDT START DATE/TIME: 01/31/2024 14:24 EDT FREE TEXT SOURCE: PRELIMINARY REPORTS Preliminary Report [] Verified Date/Time/Personnel: 01/31/2024 14:59 EDT Culture has been received in lab and is no growth to date. Routine cultures are held for 5 days. Performing Locations *1: This test was performed at: [facility], [address] [place] [address], [phone] , [facility] ([place])01-31-2024 Evaluation + Plan noteExtracted from: Title:History and Physical Author:FRACISCO PAULINO Date:01/31/24 A-fib with RVR Hx of A-fib [on Tikosyn and Xarelto] Hypotensive shock KALEB Recent COVID-19 infection Hx of HTN, HLD, DM2, HFpEF Hx of moderate asthma, morbid obesity Hx of gout, anxiety DVT prophylaxis CODE STATUS Plan: By the time, patient arrived at the MICU Cardizem drip was switched off and the patient heart rates were in 110s. Levophed was still running at 2 mcg/min. Will discontinue Levophed as it can increase the risk of A-fib with RVR. Will start the patient on phenylephrine. Patient proBNP was elevated 1822 however he does not look volume overloaded. We will use IV Lopressor for heart rate more than 110s. Will consult EP for dose adjustment to Tikosyn and further management of underlying A-fib. Will start the patient on heparin by weight considering elevated Arabella Vascor Patient did have leukocytosis which I believe it was reactive. Complains of cough with greenish phlegm production. Was tested for COVID 2 weeks ago. I do believe starting for COVID treatment at this point would not benefit the patient. Patient prophylactically got a dose of ceftriaxone at [place]. We will continue with prophylactic ceftriaxone dose as he is at high risk of COVID infection.. DuoNeb scheduled. Robitussin as needed for cough. Patient was found to have a 2.2. Since the patient is on hydrochlorothiazide at home therefore calculation of the FEna would not help. Kidney function will be monitored on daily basis. Sliding scale insulin for glycemic control DVT prophylaxis on heparin by weight Full CODE STATUS. Addendum by ARABELLA GAINES MD on January 31, 2024 11:16:33 EDT I was present for, and personally supervised, the menon components of the patient's evaluation and management by the Resident house staff today. I have examined the patient and reviewed all diagnostic data. I reviewed the note of the resident. It documents the interval history obtained, examination performed, and diagnostic testing results compiled by him/her. Briefly, 53-year-old with history of atrial fibrillation on Tikosyn, metoprolol and Xarelto, hypertension, hyperlipidemia, asthma, heart failure with preserved ejection fraction presenting status post syncope episode found in atrial fibrillation with rapid ventricular rate at [facility] admitted to the ICU overnight started on low-dose norepinephrine with improvement of blood pressure only with 1 norepinephrine needed. Patient this morning feels better. Respiratory compromise. General: Awake, alert, cooperative, no distress. Cardiovascular: Irregular rhythm, tachycardic, S1, S2. No murmurs. Respiratory: Right-sided wheezing heard. Abdomen: Soft, nontender. Audible bowel sounds. Extremities: No clubbing, cyanosis. No pedal edema. Vascular: Pulses intact 4 extremities. Assessment/Plan 1. Acute syncope 2. A-fib [on Tikosyn and Xarelto] 3. Hypotensive shock 4. KALEB 5. History of heart failure with reduced ejection fraction 6. Recent COVID-19 infection 7. Hx of HTN, HLD, DM2, HFpEF 8. Hx of moderate asthma, morbid obesity 9. Hx of gout, anxiety Plan: 1. Will avoid negative inotropes including diltiazem. 2. Check a 2D echo to evaluate cardiac function at this point. 3. Gentle diuresis bedside ultrasound shows an engorged inferior vena cava will attempt Lasix 40 mg IV x 1 his BNP T is higher than his baseline. 4. Restart metoprolol. 5. If continues to have rate issues will EP the patient is known to the had been on Tikosyn 6. No infectious process at this point 7. Wean pressors as tolerated 8. Continue to monitor renal function Prognosis is guarded Future Appointments Appointment Date:02/13/2024 03:30:00 PM Scheduled Provider[facility] Location:[facility] Appointment Type:PC Wellness Annual w/Labs Diagnostic Tests Pending * Culture Respiratory with Gram Stain 01/31/24 * APTT 02/01/24 Future Scheduled Tests Laboratory* Basic Metabolic Panel 04/01/23 * Prostate Specific Antigen 02/07/24 * A1C Hemoglobin 02/07/24 * Lipid Profile 02/07/24 * Complete Metabolic Panel 02/07/24 [facility] 09-04-2024 History and physical note Date of Service 01/31/2024 Chief Complaint Lightheadedness/dizziness History of Present Illness 53-year-old with PMH of persistent A-fib [on Xarelto, Tikosyn, metoprolol], DM2 [on Trulicity], HTN, HLD [on rosuvastatin], moderate asthma, morbid obesity, HFpEF [on metoprolol, Entresto, spironolactone, GERD without esophagitis, anxiety [on tizanidine, hydroxyzine, fluoxetine], gout [on allopurinol]. The patient states that he sustained a syncopal episode and did strike his head. The patient statesthat he has a history of atrial fibrillation and is chronically anticoagulated on Xarelto. The patient states that he was not evaluated after this initial episode. However, the patient states that for the past week, he has been having persistent headaches and recurrent episodes of dizziness. The patient states that this evening, he had another episode of dizziness and felt as though he may be presyncopal. The patient states that he did not pass out, but was experiencing some associated shortness of breath and therefore presented to the emergency department to be evaluated On arrival to the ER at [place], patient was febrile 37.4, tachycardic 133, tachypneic 21, BP 90/76, was saturating 96% on room air. Labs done at [place] 01/30/2024 revealed pO2 51 on the gases with SaO2 of 88%. Leukocytosis, hyperglycemia 122, mild hyponatremia 134, hypochloremia 97, elevated creatinine of 2.22, elevated proBNP of 1822. Lactic acid was unremarkable, troponin was unremarkable. EKG was consistent with atrial flutter, left anterior fascicular block, borderline ST depression, prolonged QT X-ray was suboptimal examination due to body habitus, no focal consolidation seen. CT head did not show any acute pathology. Patient was found to be in A-fib with RVR and was started on Cardizem drip. Upon initiation of the Cardizem drip the patient blood pressures fell. Empirical dose of Rocephin was given blood cultures were taken, Levophed was started at low-dose of 5 mcg/min and patient was transferred to MICU for further evaluation management. Last echocardiogram 10/2022 revealed EF of 30 to 35%, diastolic dysfunction, dyssynergic motion of the septum interventricular, RVSP of 40 mmHg, RAP of 15 mmHg Review of Systems All pertinent positive and negative review of systems as above Physical Exam Vitals and Measurements No qualifying data available. General: Awake, alert, cooperative, no distress. Cardiovascular: Irregular rhythm, tachycardic, S1, S2. No murmurs. Respiratory: Right-sided wheezing heard. Abdomen: Soft, nontender. Audible bowel sounds. Extremities: No clubbing, cyanosis. No pedal edema. Vascular: Pulses intact 4 extremities. Neurologic: No gross motor or sensory deficits Joints: Grossly normal Skin: Warm and dry Lab Results No 36 Hour Lab Data Assessment/Plan A-fib with RVR Hx of A-fib [on Tikosyn and Xarelto] Hypotensive shock KALEB Recent COVID-19 infection Hx of HTN, HLD, DM2, HFpEF Hx of moderate asthma, morbid obesity Hx of gout, anxiety DVT prophylaxis CODE STATUS Plan: By the time, patient arrived at the MICU Cardizem drip was switched off and the patient heart rateswere in 110s. Levophed was still running at 2 mcg/min. Will discontinue Levophed as it can increase the risk of A-fib with RVR. Will start the patient on phenylephrine. Patient proBNP was elevated 2 however he does not look volume overloaded. We will use IV Lopressor for heart rate more than 110s. Will consult EP for dose adjustment to Tikosyn and further management of underlying A-fib. Will start the patient on heparin by weight considering elevated Arabella Vascor Patient did have leukocytosis which I believe it was reactive. Complains of cough with greenish phlegm production. Was tested for COVID 2 weeks ago. I do believe starting for COVID treatment at this point would not benefit the patient. Patient prophylactically got a dose of ceftriaxone at [place].We will continue with prophylactic ceftriaxone dose as he is at high risk of COVID infection.. Yvon scheduled. Robitussin as needed for cough. Patient was found to have a 2.2. Since the patient is on hydrochlorothiazide at home therefore calculation of the FEna would not help. Kidney function will be monitored on daily basis. Sliding scale insulin for glycemic control DVT prophylaxis on heparin by weight Full CODE STATUS. Problem List/Past Medical History Ongoing Anxiety Asthma exacerbation Atopic dermatitis BMI 45.0-49.9, adult Cardiomyopathy Chewing tobacco nicotine dependence Diabetes mellitus Generalized anxiety disorder Hyperlipidemia Hypertension Insomnia Moderate asthma Morbid obesity Obstructive sleep apnea Paroxysmal atrial fibrillation Prediabetes Right flank pain Right knee pain Screening for colon cancer Screening for ischemic heart disease Type 2 diabetes mellitus with hemoglobin A1c goal of less than 7.0% Wheezing Procedure/Surgical History Cardioversion: 12/23/22 Echocardiogram: 11/11/22 Elbow Medications Home Medications (21) Active allopurinol 100 mg oral tablet 100 mg = 1 tab(s), Oral, qDay Blood Glucose Test Machine See Instructions Blood Glucose Test Strips See Instructions cetirizine 10 mg oral tablet 10 mg = 1 tab(s), Oral, Daily FLUoxetine 20 mg oral capsule 20 mg = 1 cap(s), Oral, qDay Lancets See Instructions Lasix 40 mg oral tablet See Instructions nystatin 100,000 units/g topical cream 1 frida, Topical, BID omeprazole 40 mg oral delayed release capsule 40 mg = 1 cap(s), Oral, BID rosuvastatin 20 mg oral tablet 20 mg = 1 tab(s), Oral, Daily sacubitril-valsartan 49 mg-51 mg oral tablet 1 tab(s), Oral, BID spironolactone 25 mg oral tablet 25 mg = 1 tab(s), Oral, qDay Symbicort 80 mcg-4.5 mcg/inh Inhaler 2 puff(s), Inhalation, BID Tikosyn 250 mcg oral capsule 250 mcg = 1 cap(s), Oral, BID tiZANidine 2 mg oral tablet 2 mg = 1 tab(s), PRN, Oral, q8h Toprol-XL 100 mg oral tablet, extended release 100 mg = 1 tab(s), Oral, BID traZODone 100 mg oral tablet 100 mg = 1 tab(s), Oral, qHS Trulicity Pen 1.5 mg/0.5 mL subcutaneous solution 1.5 mg, Subcutaneous, qWeek Tylenol , PRN, Oral Vistaril 25 mg oral capsule 25 mg = 1 cap(s), PRN, Oral, QID Xarelto 20 mg oral tablet 20 mg = 1 tab(s), Oral, qHS Allergies NKA Social History Alcohol Use: Past., 07/11/2022 Nutrition/Health Caffeine intake amount: pop 3 daily., 11/08/2022 Substance Abuse Use: Never., 07/11/2022 Tobacco Nicotine Use: Former smoker, quit more than 30 days ago, former chewer of tobacco. Type: Oral (Snuff, Chew). Smokeless Tobacco Use: Former smokeless tobacco user, quit more than 30 days ago, stopped snuff October 2022., 01/12/2024 Nicotine Use: Former smoker, quit more than 30 days ago., 07/11/2022 Family History Cancer: Father. Heart disease: Mother and Grandparent. Stroke: Father. Health Status Family Member(s) Immunizations pneumococcal 13-valent conjugate vaccine: 0.5 unknown unit (04/12/22) SARS-CoV-2 (COVID-19) mRNA-1273 vaccine: 0 unknown unit (09/11/20) SARS-CoV-2 (COVID-19) mRNA-1273 vaccine: 0 unknown unit (08/14/20) Code Status No qualifying data available. Digitally Signed by FRACISCO PAULINO MD on 01/31/2024 03:31 AM Digitally Signed by FRACISCO PAULINO MD on 01/31/2024 04:52 AM Digitally Signed by CINDY HERNANDEZ MD on 01/31/2024 08:06 AM [id number] Cardiology Consult note Date of Service 01/31/2024 Reason for Consultation A-fib on Tikosyn Referring Physician Dr. Paulino History of Present Illness CVC: Dr. 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 Patient had a recent COVID infection on approximately 2 weeks ago confirmed with home test after experiencing URT symptoms. Had been working out in the yard yesterday and in the afternoon while getting up from seated position began to feel dizzy and lightheaded falling backwards onto his sofa. No LOC. Denies chest pain/palpitations but does endorse associated shortness of breath, diaphoresis. Previous similar episodes. Thinks he was also dehydrated. Compliant with Xarelto with last dose being a.m. of 01/29. Initial vitals showing tachycardia of 133, BP 90/76 subsequently became hypotensive at 68/48. GivenCardizem subsequently came hypotensive, did not tolerate Cardizem drip. Patient transferred to [place] [facility]U for further management. Placed on Levophed. Troponins negative x 3, proBNP 1822. COVID-negat jimmy. Echocardiogram ordered. When seen this a.m., no complaints of chest pain, shortness of breath, dizziness or palpitations. Cardiac investigations: [facility] 12/15/2022 Last seen in [facility] office November 2023 when he was in sinus rhythm. Echocardiogram 03/30/2023: Concentric LVH, systolic function probably mildly reduced, RWMA cannot beexcluded. Small pericardial effusion Echo 11/11/2022: EF 30-35%, mild MR, severely dilated LA, RSVP 40 Review of Systems 11 point review of systems negative unless otherwise noted in HPI Physical Exam Vitals and Measurements T: 36.4 C (Oral) TMIN: 36.4 C (Oral) TMAX: 36.5 C (Oral) HR: 82 (Monitored) RR: 16 BP: 89/72 SpO2:94% HT: 175 cm WT: 149.1 kg BMI: 48.69 Weight Dosing Weight: 149.1 kg (01/31/24) General Appearance: Patient comfortably lying on bed, not in acute distress Head: Normocephalic, atraumatic EENT: PERRLA, Neck: Supple, no JVD, no mass Cardiac: s1s2,RRR, no murmurs or rubs or gallops Lungs: Clear to auscultation bilaterally, no wheeze or rhonchi or crackles Abdomen: Soft , Nontender, no organomegaly, bowel sounds heard Musculoskeletal: Full ROM, no gross deformities Extremities: No rash or ulcers. 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 Troponins negative. Currently rate controlled. Home Toprol XL has been resumed at 100 mg twice daily. Compliant with Xarelto at home with last dose the a.m. of 01/29 (day of presentation), however does appear IV anticoagulation started at 4:00 in this AM Plan: Will plan for NELDA and cardioversion tomorrow N.p.o. at midnight We will resume home Tikosyn dose at 250 mg twice daily. Monitor QTc Follow-up echocardiogram already ordered No for further ischemic evaluation at this time Continue anticoagulation with IV heparin. Will continue to follow. Patient seen with tire recapping machine operator Dr. Hartley who agreed with plan. Please see addendum for changes. Problem List/Past Medical History Ongoing Anxiety Asthma exacerbation Atopic dermatitis BMI 45.0-49.9, adult Cardiomyopathy Chewing tobacco nicotine dependence Diabetes mellitus Generalized anxiety disorder Hyperlipidemia Hypertension Insomnia Moderate asthma Morbid obesity Obstructive sleep apnea Paroxysmal atrial fibrillation Prediabetes Right flank pain Right knee pain Screening for colon cancer Screening for ischemic heart disease Type 2 diabetes mellitus with hemoglobin A1c goal of less than 7.0% Wheezing Procedure/Surgical History Cardioversion: 12/23/22 Echocardiogram: 11/11/22 Elbow Medications Inpatient budesonide 0.25 mg/2 mL inhalation suspension, 0.25 mg= 2 mL, Inhalation, BIDRT cefTRIAXone, 2 gram(s)= 20 mL, IV Push (INT), qDay codeine-guaifenesin 10 mg-100 mg/5 mL oral syrup, 10 mL, Oral, q4h, PRN Dextrose 50% IV Push, 12.5 gram(s)= 25 mL, IV Push, AsDirected, PRN DuoNeb, 3 mL, Inhalation, TIDRT Heparin for IV 25,000 unit(s) [6.71 unit(s)/kg/hr] + Dextrose 5% Premix Diluent 250 mL Heparin HBW CARDIAC Bolus 5000 units/mL, 4000 unit(s)= 0.8 mL, 60 unit(s)/kg, IV Push, q6h, PRN metoprolol tartrate 1 mg/mL injectable solution, 5 mg= 5 mL, IV Push, q3h, PRN phenylephrine for IV 50 mg [100 mcg/min] + sodium chloride 0.9% IV solution (T) 250 mL Protonix IV Push, 40 mg, IV Push, qDayAC Toprol-XL, 100 mg= 1 tab(s), Oral, BID Home allopurinol 100 mg oral tablet, 100 mg= 1 tab(s), Oral, qDay, 3 refills Blood Glucose Test Machine, See Instructions Blood Glucose Test Strips, See Instructions, 11 refills cetirizine 10 mg oral tablet, 10 mg= 1 tab(s), Oral, Daily, 3 refills FLUoxetine 20 mg oral capsule, 20 mg= 1 cap(s), Oral, qDay, 3 refills Lancets, See Instructions, 11 refills Lasix 40 mg oral tablet, See Instructions, 3 refills, Not taking nystatin 100,000 units/g topical cream, 1 frida, Topical, BID, 1 refills omeprazole 40 mg oral delayed release capsule, 40 mg= 1 cap(s), Oral, BID, 3 refills rosuvastatin 20 mg oral tablet, 20 mg= 1 tab(s), Oral, Daily, 3 refills sacubitril-valsartan 49 mg-51 mg oral tablet, 1 tab(s), Oral, BID, 3 refills spironolactone 25 mg oral tablet, 25 mg= 1 tab(s), Oral, qDay, 3 refills Symbicort 80 mcg-4.5 mcg/inh Inhaler, 2 puff(s), Inhalation, BID, 3 refills Tikosyn 250 mcg oral capsule, 250 mcg= 1 cap(s), Oral, BID, 3 refills tiZANidine 2 mg oral tablet, 2 mg= 1 tab(s), Oral, q8h, PRN, 2 refills Toprol-XL 100 mg oral tablet, extended release, 100 mg= 1 tab(s), Oral, BID, 3 refills traZODone 100 mg oral tablet, 100 mg= 1 tab(s), Oral, qHS, 3 refills Trulicity Pen 1.5 mg/0.5 mL subcutaneous solution, 1.5 mg, Subcutaneous, qWeek, 3 refills Tylenol, Oral, PRN Vistaril 25 mg oral capsule, 25 mg= 1 cap(s), Oral, QID, PRN, 5 refills Xarelto 20 mg oral tablet, 20 mg= 1 tab(s), Oral, qHS, 3 refills Allergies NKA Social History Alcohol Use: Past., 07/11/2022 Nutrition/Health Caffeine intake amount: pop 3 daily., 11/08/2022 Substance Abuse Use: Never., 07/11/2022 Tobacco Nicotine Use: Former smoker, quit more than 30 days ago, former chewer of tobacco. Type: Oral (Snuff, Chew). Smokeless Tobacco Use: Former smokeless tobacco user, quit more than 30 days ago, stopped snuff October 2022., 01/12/2024 Nicotine Use: Former smoker, quit more than 30 days ago., 07/11/2022 Family History Cancer: Father. Heart disease: Mother and Grandparent. Stroke: Father. Health Status Family Member(s) Immunizations pneumococcal 13-valent conjugate vaccine: 0.5 unknown unit (04/12/22) SARS-CoV-2 (COVID-19) mRNA-1273 vaccine: 0 unknown unit (09/11/20) SARS-CoV-2 (COVID-19) mRNA-1273 vaccine: 0 unknown unit (08/14/20) Digitally Signed by MICHELLE HENRY MD on 01/31/2024 08:59 AM Digitally Signed by MICHELLE HENRY MD on 01/31/2024 12:53 PM [facility] [id number] NoteATRIAL FIBRILLATION LAD, CONSIDER LEFT ANTERIOR FASCICULAR BLOCK LOW VOLTAGE, PRECORDIAL LEADS BORDERLINE T ABNORMALITIES, INFERIOR LEADS BORDERLINE PROLONGED QT INTERVAL Electronic Signature: MOY WATTS MD 02/01/2024 11:10:[address] [place] [address] 09-04-2024 Note. MICRO - Microbiology PROCEDURE: Blood Culture (bacterial) [*1] SOURCE: Blood BODY SITE: COLLECTED DATE/TIME: 01/31/2024 03:46 EDT RECEIVED DATE/TIME: 01/31/2024 04:22 EDT START DATE/TIME: 01/31/2024 04:22 EDT FREE TEXT SOURCE: PRELIMINARY REPORTS Preliminary Report [] Verified Date/Time/Personnel: 01/31/2024 04:59 EDT Culture has been received in lab and is no growth to date. Routine cultures are held for 5 days. Performing Locations *1: This test was performed at: [address], [address] [place], [place] [address]-31-2024 Note. MICRO - Microbiology PROCEDURE: Blood Culture (bacterial) [*1] SOURCE: Blood BODY SITE: COLLECTED DATE/TIME: 01/31/2024 03:46 EDT RECEIVED DATE/TIME: 01/31/2024 04:22 EDT START DATE/TIME: 01/31/2024 04:22 EDT FREE TEXT SOURCE: PRELIMINARY REPORTS Preliminary Report [] Verified Date/Time/Personnel: 01/31/2024 04:59 EDT Culture has been received in lab and is no growth to date. Routine cultures are held for 5 days. Performing Locations *1: This test was performed at: [address], [address] [place], [place] [address]-31-2024 History and physical note Date of Service 01/31/2024 Chief Complaint Lightheadedness/dizziness History of Present Illness 53-year-old with PMH of persistent A-fib [on Xarelto, Tikosyn, metoprolol], DM2 [on Trulicity], HTN, HLD [on rosuvastatin], moderate asthma, morbid obesity, HFpEF [on metoprolol, Entresto, spironolactone, GERD without esophagitis, anxiety [on tizanidine, hydroxyzine, fluoxetine], gout [on allopurinol]. The patient states that he sustained a syncopal episode and did strike his head. The patient statesthat he has a history of atrial fibrillation and is chronically anticoagulated on Xarelto. The patient states that he was not evaluated after this initial episode. However, the patient states that for the past week, he has been having persistent headaches and recurrent episodes of dizziness. The patient states that this evening, he had another episode of dizziness and felt as though he may be presyncopal. The patient states that he did not pass out, but was experiencing some associated shortness of breath and therefore presented to the emergency department to be evaluated On arrival to the ER at [place], patient was febrile 37.4, tachycardic 133, tachypneic 21, BP 90/76, was saturating 96% on room air. Labs done at [place] 01/30/2024 revealed pO2 51 on the gases with SaO2 of 88%. Leukocytosis, hyperglycemia 122, mild hyponatremia 134, hypochloremia 97, elevated creatinine of 2.22, elevated proBNP of 1822. Lactic acid was unremarkable, troponin was unremarkable. EKG was consistent with atrial flutter, left anterior fascicular block, borderline ST depression, prolonged QT X-ray was suboptimal examination due to body habitus, no focal consolidation seen. CT head did not show any acute pathology. Patient was found to be in A-fib with RVR and was started on Cardizem drip. Upon initiation of the Cardizem drip the patient blood pressures fell. Empirical dose of Rocephin was given blood cultures were taken, Levophed was started at low-dose of 5 mcg/min and patient was transferred to MICU for further evaluation management. Last echocardiogram 10/2022 revealed EF of 30 to 35%, diastolic dysfunction, dyssynergic motion of the septum interventricular, RVSP of 40 mmHg, RAP of 15 mmHg Review of Systems All pertinent positive and negative review of systems as above Physical Exam Vitals and Measurements No qualifying data available. General: Awake, alert, cooperative, no distress. Cardiovascular: Irregular rhythm, tachycardic, S1, S2. No murmurs. Respiratory: Right-sided wheezing heard. Abdomen: Soft, nontender. Audible bowel sounds. Extremities: No clubbing, cyanosis. No pedal edema. Vascular: Pulses intact 4 extremities. Neurologic: No gross motor or sensory deficits Joints: Grossly normal Skin: Warm and dry Lab Results No 36 Hour Lab Data Assessment/Plan A-fib with RVR Hx of A-fib [on Tikosyn and Xarelto] Hypotensive shock KALEB Recent COVID-19 infection Hx of HTN, HLD, DM2, HFpEF Hx of moderate asthma, morbid obesity Hx of gout, anxiety DVT prophylaxis CODE STATUS Plan: By the time, patient arrived at the MICU Cardizem drip was switched off and the patient heart rateswere in 110s. Levophed was still running at 2 mcg/min. Will discontinue Levophed as it can increase the risk of A-fib with RVR. Will start the patient on phenylephrine. Patient proBNP was elevated 1822 however he does not look volume overloaded. We will use IV Lopressor for heart rate more than 110s. Will consult EP for dose adjustment to Tikosyn and further management of underlying A-fib. Will start the patient on heparin by weight considering elevated Arabella Vascor Patient did have leukocytosis which I believe it was reactive. Complains of cough with greenish phlegm production. Was tested for COVID 2 weeks ago. I do believe starting for COVID treatment at this point would not benefit the patient. Patient prophylactically got a dose of ceftriaxone at [place].We will continue with prophylactic ceftriaxone dose as he is at high risk of COVID infection.. DuoNeb scheduled. Robitussin as needed for cough. Patient was found to have a 2.2. Since the patient is on hydrochlorothiazide at home therefore calculation of the FEna would not help. Kidney function will be monitored on daily basis. Sliding scale insulin for glycemic control DVT prophylaxis on heparin by weight Full CODE STATUS. Problem List/Past Medical History Ongoing Anxiety Asthma exacerbation Atopic dermatitis BMI 45.0-49.9, adult Cardiomyopathy Chewing tobacco nicotine dependence Diabetes mellitus Generalized anxiety disorder Hyperlipidemia Hypertension Insomnia Moderate asthma Morbid obesity Obstructive sleep apnea Paroxysmal atrial fibrillation Prediabetes Right flank pain Right knee pain Screening for colon cancer Screening for ischemic heart disease Type 2 diabetes mellitus with hemoglobin A1c goal of less than 7.0% Wheezing Procedure/Surgical History Cardioversion: 12/23/22 Echocardiogram: 11/11/22 Elbow Medications Home Medications (21) Active allopurinol 100 mg oral tablet 100 mg = 1 tab(s), Oral, qDay Blood Glucose Test Machine See Instructions Blood Glucose Test Strips See Instructions cetirizine 10 mg oral tablet 10 mg = 1 tab(s), Oral, Daily FLUoxetine 20 mg oral capsule 20 mg = 1 cap(s), Oral, qDay Lancets See Instructions Lasix 40 mg oral tablet See Instructions nystatin 100,000 units/g topical cream 1 frida, Topical, BID omeprazole 40 mg oral delayed release capsule 40 mg = 1 cap(s), Oral, BID rosuvastatin 20 mg oral tablet 20 mg = 1 tab(s), Oral, Daily sacubitril-valsartan 49 mg-51 mg oral tablet 1 tab(s), Oral, BID spironolactone 25 mg oral tablet 25 mg = 1 tab(s), Oral, qDay Symbicort 80 mcg-4.5 mcg/inh Inhaler 2 puff(s), Inhalation, BID Tikosyn 250 mcg oral capsule 250 mcg = 1 cap(s), Oral, BID tiZANidine 2 mg oral tablet 2 mg = 1 tab(s), PRN, Oral, q8h Toprol-XL 100 mg oral tablet, extended release 100 mg = 1 tab(s), Oral, BID traZODone 100 mg oral tablet 100 mg = 1 tab(s), Oral, qHS Trulicity Pen 1.5 mg/0.5 mL subcutaneous solution 1.5 mg, Subcutaneous, qWeek Tylenol , PRN, Oral Vistaril 25 mg oral capsule 25 mg = 1 cap(s), PRN, Oral, QID Xarelto 20 mg oral tablet 20 mg = 1 tab(s), Oral, qHS Allergies NKA Social History Alcohol Use: Past., 07/11/2022 Nutrition/Health Caffeine intake amount: pop 3 daily., 11/08/2022 Substance Abuse Use: Never., 07/11/2022 Tobacco Nicotine Use: Former smoker, quit more than 30 days ago, former chewer of tobacco. Type: Oral (Snuff, Chew). Smokeless Tobacco Use: Former smokeless tobacco user, quit more than 30 days ago, stopped snuff October 2022., 01/12/2024 Nicotine Use: Former smoker, quit more than 30 days ago., 07/11/2022 Family History Cancer: Father. Heart disease: Mother and Grandparent. Stroke: Father. Health Status Family Member(s) Immunizations pneumococcal 13-valent conjugate vaccine: 0.5 unknown unit (04/12/22) SARS-CoV-2 (COVID-19) mRNA-1273 vaccine: 0 unknown unit (09/11/20) SARS-CoV-2 (COVID-19) mRNA-1273 vaccine: 0 unknown unit (08/14/20) Code Status No qualifying data available. Digitally Signed by FRACISCO PAULINO MD on 01/31/2024 03:31 AM Digitally Signed by FRACISCO PAULINO MD on 01/31/2024 04:52 AM Digitally Signed by CINDY HERNANDEZ MD on 01/31/2024 08:06 AM [id number] Note ORIGINAL EXAMINATION: CT OF THE HEAD WITHOUT CONTRAST01/30/2024 10:[address] HEAD/BRAIN WITHOUT CONTRAST EXAM DESCRIPTION: TECHNIQUE: CT of the head was performed without the administration of intravenous contrast. Automated exposure control, iterative reconstruction, and/or weight based adjustment of the mA/kV was utilized to reduce the radiation dose to as low as reasonably achievable. COMPARISON: None available HISTORY: ORDERING SYSTEM PROVIDED HISTORY: Reason for Exam: syncopal episode FINDINGS: The size, density, and morphology of the brain and CSF containing spaces appears normal. There is no evidence of mass, midline shift, hemorrhage, or infract. The ventricles, cortical sulci, and subarachnoid cisterns appear unremarkable. There are no extra-axial fluid collections. No regions of pathologic attenuation are evident. Regions of the orbits and paranasal sinuses included within the field of view are unremarkable. There is no displaced fracture or osseous neoplasm. The extracalvarial soft tissues appear unremarkable. IMPRESSION: No acute intracranial pathology. COMMENT: Changes resultant from ischemia (even significant ischemia) may often be inapparent on CT exam, particularly if imaged early. Additionally, early changes due to neoplastic or inflammatory processes can be subtle to the extent that they are not prospectively noted. Therefore, if symptoms persist, or clinical suspicion for pathology remains, further evaluation may be obtained with MRI. Interpreted by: Keagan Morfin MD Preliminary Report By: Keagan Morfin MD Electronically signed By Keagan Morfin MD Dictated Date: 01/30/2024 10:06:01 PM Prelim Date: 01/30/2024 10:16:46 PM Sign Date: 01/30/2024 10:16:46 PM Ordering Provider: [facility]09-03-2024 Note ORIGINAL EXAMINATION: ONE XRAY VIEW OF THE CHEST01/30/2024 9:21 pm COMPARISON: Chest x-ray 06/13/2023 HISTORY: ORDERING SYSTEM PROVIDED HISTORY: Reason for Exam: SOB/cough/fever FINDINGS: Suboptimal exam due to body habitus. The cardiomediastinal silhouette is stable. No definite focal consolidation. Costophrenic angles are sharp. No radiographic pneumothorax. Osseous structures grossly unchanged IMPRESSION: Suboptimal exam due to patient body habitus. No definite focal consolidation. I have personally reviewed the images of this examination and agree with the resident's findings and interpretation. Interpreted by: Trace Feirro Preliminary Report By: Kike Acevedo Electronically signed By Trace Fierro Dictated Date: 01/30/2024 9:24:47 PM Prelim Date: 01/30/2024 9:26:56 PM Sign Date: 01/30/2024 9:28:12 PM Ordering Provider: [facility]09-03-2024 NoteAtrial flutter Left anterior fascicular block Borderline low voltage, extremity leads Abnormal R-wave progression, late transition Borderline ST depression, lateral leads Prolonged QT interval Baseline wander in lead(s) V3,V5 Electronic Signature: MD SAMY JONES MD 01/30/2024 21:01:46[facility] 03-13-2024 Hospital Discharge instructions Patient Education 08/09/2023 21:19:23 Symptoms With Uncertain Cause Symptoms With Uncertain Cause (Adult) You have been examined, and tests may have been done. However, the exact cause of your symptoms is still not certain. Watch for any new symptoms or worsening of your condition. Another exam or more testing at a later time may be needed. Unless told otherwise, you can go back to your normal routine.Continue to take prescribed medicines as directed. Contact your healthcare provider if you have questions or concerns. Follow-up care Follow up with your healthcare provider if your symptoms do not begin to improve in the next few days, or as advised by our staff. When to seek medical advice Call your healthcare provider if your symptoms get worse or if new symptoms appear. [phone] [employer]. [address] [place] [address], [place] [address]. All rights reserved. This information is not intended as a substitute for professional medical care. Always follow yourhealthcare professional's instructions. Follow Up Care 08/09/2023 21:02:01 With:ISADORA CORREA Address: [address] [place] [address]- [phone] Business (1) When:5-7 days Comments:Use warm compresses, Tylenol as discussed, return if any worsening or concerning symptoms. Follow-up closely with your doctor. [facility] 03-13-2024 Note Discharge Instructions Thank you for allowing [facility] to assist you with your healthcare needs. The following is importantdischarge information regarding your hospital visit. Diagnosis from Today's Visit Arm pain Arm pain-swelling What to Do Next Instructions from Your Care Team No qualifying data available. Post Acute Orders No qualifying data available. You Need to Schedule the Following Appointments Follow Up with ISADORA CORREA When Within 5-7 days Why: Use warm compresses, Tylenol as discussed, return if any worsening or concerning symptoms. Follow-up closely with your doctor. Where: [address] [place] [address] [phone] Business (1) Allergies NKA Medications Please ask your primary doctor or pharmacist before taking any other medication not listed, including over the counter drugs, herbal medications, vitamins and or supplements as they may interact withyour home medications. What How Much When Why Instructions Last Dose Unchanged allopurinol (allopurinol 100 mg oral tablet) 1 tab(s) by mouth Once a day Unchanged atorvastatin (atorvastatin 40 mg oral tablet) 1 tab(s) by mouth Every day Unchanged cetirizine (cetirizine 10 mg oral tablet) 1 tab(s) by mouth Every day Duration: 90 Days Unchanged dofetilide (Tikosyn 250 mcg oral capsule) 1 cap by mouth Two (2) times a day Unchanged FLUoxetine (FLUoxetine 10 mg oral capsule) 1 cap by mouth Once a day Duration: 90 Days Unchanged fluticasone (Flovent HFA 110 mcg/ inh inhalation aerosol) 2 puff(s) by inhalation Two (2) times a day Duration: 90 Days Unchanged furosemide (Lasix 40 mg oral tablet) See instructions 1 tab in AM and 0.5 tab in PM Unchanged hydrOXYzine (Vistaril 25 mg oral capsule) 1 cap by mouth Four (4) times a day as needed for as needed for anxiety Duration: 30 Days Unchanged metoprolol (Toprol-XL 100 mg oral tablet, extended release) 1 tab(s) by mouth Two (2) times a day Shortness of breath Duration: 90 Days do not crush or chew Unchanged omeprazole (omeprazole 40 mg oral delayed release capsule) 1 cap by mouth Two (2) times a day before a meal. Unchanged rivaroxaban (Xarelto 20 mg oral tablet) 1 tab(s) by mouth Daily at bedtime Unchanged sacubitril-valsartan (sacubitril-valsartan 49 mg-51 mg oral tablet) 1 tab(s) by mouth Two (2) times a day Duration: 90 Days Unchanged semaglutide (semaglutide 2 mg/ 3 mL (0.25 mg or 0.5 mg dose) subcutaneous solution) 0.25 Milligram Subcutaneous Every week Duration: 30 Days rotate injection sites Unchanged spironolactone (spironolactone 25 mg oral tablet) 1 tab(s) by mouth Once a day Duration: 90 Days Unchanged traZODone (traZODone 100 mg oral tablet) 1 tab(s) by mouth Daily at bedtime Please take this list to your next doctor s visit. Bring all medications you take, including over the counter medications, herbals and other supplements with you to your doctor s visit. Patients and families are reminded to discard old lists and to update any records with all medication providers or retail pharmacies. Education Materials Symptoms With Uncertain Cause (Adult) You have been examined, and tests may have been done. However, the exact cause of your symptoms is still not certain. Watch for any new symptoms or worsening of your condition. Another exam or more testing at a later time may be needed. Unless told otherwise, you can go back to your normal routine.Continue to take prescribed medicines as directed. Contact your healthcare provider if you have questions or concerns. Follow-up care Follow up with your healthcare provider if your symptoms do not begin to improve in the next few days, or as advised by our staff. When to seek medical advice Call your healthcare provider if your symptoms get worse or if new symptoms appear. [phone] [employer]. [address] [place] [id number]. All rights reserved. This information is not intended as a substitute for professional medical care. Always follow yourhealthcare professional's instructions. Additional Information VACCINATE! IT SAVES LIVES! Members of the community who have not yet received the COVID-19 vaccine and would like to receive it can visit one of [facility] vaccine clinics. There are many vaccine clinic locations within the [facility]. For locations and available times, please visit www.gettheshot.coronavirus.[place].gov/. It is important to note that some COVID mobile vaccine clinics are held outdoors and may be canceled in rainy or stormy conditions. To learn more about pediatric vaccinations (ages 5-11), we invite you to visit the [facility] webpage. https://www.[facility].org/pages/1234-Wbocu-Oviquiwjieo-Eeapvvicyb-Kujdu-Gww stions.htmlTo learn more about the COVID-19 vaccine, we invite you to visit the CDC website for a list of frequently asked questions. https://www.cdc.gov/coronavirus/2019-ncov/vaccines/faq.html [facility] Patient Portal Access Instructions: Stay connected with your healthcare team and access your personal medical information anytime with the [facility] Patient Portal. If you would like a full copy of your medical records please contact the [facility] Medical Records Department Monday through Monday between 8a.m. and 4:30p.m. Please follow the directions below to access the portal: 1.Access the email account you provided upon registration to the [facility].2.Look for an invitation email from [facility].3.Open the email and access the invitation link: Accept Invitation to [facility]4.Fill in the required orr to create your account. Sign into [email or web address] with your username and password that you created in the above steps to stay up to date. You can then view a summary of results, a summary of your visits, and the ability to download your summaries to your computer or send the information securely to a physician. Remember that your healthcare information is confidential, so carefully consider who you will allow to register on the [employer] Patient Portal for access to your information. You can also access the [employer] Patient Portal on the [employer]. Simply click on Health Records under [employer] and then click on the [employer] logo. HOW TO SAFELY DISPOSE OF PRESCRIPTION MEDICATIONS Please use one of the following methods to safely dispose of your unused medications. 1.Use a drug disposal kit: the drug disposal pouch allows you to safely discard your old and unuseddrugs. Ask your nurse to give you one when you are discharged.2.Visit a local take-back location: Many local pharmacies and police departments have programs that collect old and unwanted prescriptiondrugs. Call your local pharmacy or go to http://[employer]/0M6Nb4w to find one close to you.3.Make use of household items: Use cat litter or old coffee grounds to dispose medications if other options arenot available. Mix your drugs with these household products, seal them in an airtight container andthrow it into the garbage. Call [facility]: [phone] to be sure your drugs can be disposed of in this way. Some medicines may require a different approach.4.Never flush your medications down the toilet. IF YOU HAVE BEEN PRESCRIBED AN OPIOIDS FOR PAIN If you have been prescribed an opioid (such as hydrocodone, oxycodone or morphine), it is critical to understand the possible side effects and risks of opioid pain medications. Even when taken as directed, opioids can have several side effects including: Tolerance, meaning you might need to take more of a medication for the same pain relief. Nausea, vomiting and/or constipation. Sleepiness, dizziness, dry mouth, confusion, depression or itching. Physical dependence, meaning you have withdrawal symptoms when a medication is stopped ? this can develop within a few days. KNOW YOUR RESPONSIBILITIES It is important to know exactly how much and how often to take the opioid pain medications you are prescribed. Never take opioids in higher amounts or more often than prescribed. Do not combine opioids with alcohol or other drugs that cause drowsiness, such as benzodiazepines, also known as benzos,including diazepam and alprazolam, muscle relaxants or sleep aids. Never sell or share prescriptionopioids. This is illegal. Store opioids in a secure place and out of reach of others (including children, family, friends and visitors). The last page(s) of this document has been signed and retained as a CHART COPY Signatures Patient Education Materials Symptoms With Uncertain Cause Medication Leaflets My discharge plan and instructions have been reviewed and explained to me and I,SOCORRO KELLEY understand my current condition and have read and understand these discharge instructions. I have received awritten copy of the plan/instructions. If I have questions, I am aware that I should contact my doctor. Patient/Dealer Support Technician Signature: Date/Time: Relationship to Patient: Witness Name/Signature: Date/Time: [facility]01-16-2024 Hospital Discharge instructions Patient Education 06/13/2023 01:01:02 Bronchitis With Wheezing (Adult) Viral or Bacterial Bronchitis with Wheezing (Adult) Bronchitis is an infection of the air passages. It often occurs during a cold and is usually causedby a virus. Symptoms include cough with mucus (phlegm) and low-grade fever. This illness is contagious during the first few days and is spread through the air by coughing and sneezing, or by direct contact (touching the sick person and then touching your own eyes, nose, or mouth). If there is a lot of inflammation, air flow is restricted. The air passages may also go into spasm,especially if you have asthma. This causes wheezing and difficulty breathing even in people who do not have asthma. Bronchitis usually lasts 7 to 14 days. The wheezing should improve with treatment during the first week. An inhaler is often prescribed to relax the air passages and stop wheezing. Antibiotics will be prescribed if your doctor thinks there is also a secondary bacterial infection. Home care If symptoms are severe, rest at home for the first 2 to 3 days. When you go back to your usual activities, don't let yourself get too tired. Dont s'moke. Also avoid being exposed to secondhand smoke. You may use peug-xfu-lwvpgnm medicine to control fever or pain, unless another medicine was prescribed. Note: If you have chronic liver or kidney disease or have ever had a stomach ulcer or gastrointestinal bleeding, talk with your healthcare provider before using these medicines. Also talk to yourprovider if you are taking medicine to prevent blood clots.) Aspirin should never be given to anyone younger than 18 years of age who is ill with a viral infection or fever. It may cause severe liveror brain damage. Your appetite may be poor, so a light diet is fine. Stay well hydrated by drinking 6 to 8 glasses of fluids per day (such as water, soft drinks, sports drinks, juices, tea, or soup). Extra fluids will help loosen secretions in the nose and lungs. Dtjl-sle-sjdifjo cough, cold, and sore-throat medicines will not shorten the length of the illness,but they may be helpful to reduce symptoms. (Note: Don't use decongestants if you have high blood pressure.) If you were given an inhaler, use it exactly as directed. If you need to use it more often than prescribed, your condition may be worsening. If this happens, contact your healthcare provider. If prescribed, finish all antibiotic medicine, even if you are feeling better after only a few days. Follow-up care Follow up with your healthcare provider, or as advised. If you had an X-ray or ECG (electrocardiogram), a specialist will review it. You will be notified of any new findings that may affect your care. If you are age 65 or older, or if you have a chronic lung disease or condition that affects your immune system, or you smoke, ask your healthcare provider about getting a pneumococcal vaccine and a yearly flu shot (influenza vaccine). When to seek medical advice Call your healthcare provider right away if any of these occur: Fever of 100.4 F (38 C) or higher, or as directed by your healthcare provider Coughing up increasing amounts of colored sputum Weakness, drowsiness, headache, facial pain, ear pain, or a stiff neck Call 911 Call 911 if any of these occur. Coughing up blood Worsening weakness, drowsiness, headache, or stiff neck Increased wheezing not helped with medication, shortness of breath, or pain with breathing [id number] [employer]. [address] [place] [address]. All rights reserved. This information is not intended as a substitute for professional medical care. Always follow yourhealthcare professional's instructions. Follow Up Care 06/13/2023 00:01:18 With:ISADORA CORREA Address: [address] [place] [address] [phone] Business (1) When:3-7 days Comments:Schedule appointment for close follow-up if symptoms are not improving.Push fluids.Vaporizer at bedside.Use Tylenol or Advil for fever and discomfort as needed.Continue inhaler and nebulizer treatments for shortness of breath and wheezing as needed.Use steroid (prednisone) and cough medicine (Tessalon) as prescribed.May check results of the viral respiratory panel later today or tomorrow via the patient portal.Return to the ED if symptoms worsen. [facility] 01-16-2024 Note Discharge Instructions Thank you for allowing [facility] to assist you with your healthcare needs. The following is importantdischarge information regarding your hospital visit. Diagnosis from Today's Visit Cough What to Do Next Instructions from Your Care Team No qualifying data available. Post Acute Orders No qualifying data available. You Need to Schedule the Following Appointments Follow Up with ISADORA CORREA When Within 3-7 days Why: Schedule appointment for close follow-up if symptoms are not improving. Push fluids. Vaporizer at bedside. Use Tylenol or Advil for fever and discomfort as needed. Continue inhaler and nebulizer treatments for shortness of breath and wheezing as needed. Use steroid (prednisone) and cough medicine (Tessalon) as prescribed. May check results of the viral respiratory panel later today or tomorrow via the patient portal. Return to the ED if symptoms worsen. Where: [place] [address] [phone] Business (1) Allergies NKA Medications Please ask your primary doctor or pharmacist before taking any other medication not listed, including over the counter drugs, herbal medications, vitamins and or supplements as they may interact withyour home medications. What How Much When Why Instructions Last Dose New benzonatate (Tessalon Perles 100 mg oral capsule) 1 cap by mouth Three (3) times a day Duration: 7 Days Printed Prescription New predniSONE (predniSONE 20 mg oral tablet) 2 tab(s) by mouth Once a day Duration: 5 Days Printed Prescription Unchanged allopurinol (allopurinol 100 mg oral tablet) 1 tab(s) by mouth Once a day Unchanged dofetilide (Tikosyn 250 mcg oral capsule) 1 cap by mouth Two (2) times a day Unchanged FLUoxetine (FLUoxetine 10 mg oral capsule) 1 cap by mouth Once a day Unchanged furosemide (Lasix 40 mg oral tablet) See instructions 1 tab in AM and 0.5 tab in PM Unchanged hydrOXYzine (Vistaril 25 mg oral capsule) 1 cap by mouth Four (4) times a day as needed for as needed for anxiety Unchanged metoprolol (Toprol-XL 100 mg oral tablet, extended release) 1 tab(s) by mouth Two (2) times a day Shortness of breath do not crush or chew Unchanged omeprazole (omeprazole 40 mg oral delayed release capsule) 1 cap by mouth Two (2) times a day before a meal. sent in absence of PCP Unchanged rivaroxaban (Xarelto 20 mg oral tablet) 1 tab(s) by mouth Daily at bedtime Unchanged sacubitril-valsartan (sacubitril-valsartan 49 mg-51 mg oral tablet) 1 tab(s) by mouth Two (2) times a day Unchanged spironolactone (spironolactone 25 mg oral tablet) 1 tab(s) by mouth Once a day Unchanged traZODone (traZODone 100 mg oral tablet) 1 tab(s) by mouth Daily at bedtime Please take this list to your next doctor s visit. Bring all medications you take, including over the counter medications, herbals and other supplements with you to your doctor s visit. Patients and families are reminded to discard old lists and to update any records with all medication providers or retail pharmacies. Education Materials Viral or Bacterial Bronchitis with Wheezing (Adult) Bronchitis is an infection of the air passages. It often occurs during a cold and is usually causedby a virus. Symptoms include cough with mucus (phlegm) and low-grade fever. This illness is contagious during the first few days and is spread through the air by coughing and sneezing, or by direct contact (touching the sick person and then touching your own eyes, nose, or mouth). If there is a lot of inflammation, air flow is restricted. The air passages may also go into spasm,especially if you have asthma. This causes wheezing and difficulty breathing even in people who do not have asthma. Bronchitis usually lasts 7 to 14 days. The wheezing should improve with treatment during the first week. An inhaler is often prescribed to relax the air passages and stop wheezing. Antibiotics will be prescribed if your doctor thinks there is also a secondary bacterial infection. Home care If symptoms are severe, rest at home for the first 2 to 3 days. When you go back to your usual activities, don't let yourself get too tired. Dont s'moke. Also avoid being exposed to secondhand smoke. You may use tbzm-ntx-lfnbcrx medicine to control fever or pain, unless another medicine was prescribed. Note: If you have chronic liver or kidney disease or have ever had a stomach ulcer or gastrointestinal bleeding, talk with your healthcare provider before using these medicines. Also talk to yourprovider if you are taking medicine to prevent blood clots.) Aspirin should never be given to anyone younger than 18 years of age who is ill with a viral infection or fever. It may cause severe liveror brain damage. Your appetite may be poor, so a light diet is fine. Stay well hydrated by drinking 6 to 8 glasses of fluids per day (such as water, soft drinks, sports drinks, juices, tea, or soup). Extra fluids will help loosen secretions in the nose and lungs. Uqnp-iaj-jikiojv cough, cold, and sore-throat medicines will not shorten the length of the illness,but they may be helpful to reduce symptoms. (Note: Don't use decongestants if you have high blood pressure.) If you were given an inhaler, use it exactly as directed. If you need to use it more often than prescribed, your condition may be worsening. If this happens, contact your healthcare provider. If prescribed, finish all antibiotic medicine, even if you are feeling better after only a few days. Follow-up care Follow up with your healthcare provider, or as advised. If you had an X-ray or ECG (electrocardiogram), a specialist will review it. You will be notified of any new findings that may affect your care. If you are age 65 or older, or if you have a chronic lung disease or condition that affects your immune system, or you smoke, ask your healthcare provider about getting a pneumococcal vaccine and a yearly flu shot (influenza vaccine). When to seek medical advice Call your healthcare provider right away if any of these occur: Fever of 100.4 F (38 C) or higher, or as directed by your healthcare provider Coughing up increasing amounts of colored sputum Weakness, drowsiness, headache, facial pain, ear pain, or a stiff neck Call 911 Call 911 if any of these occur. Coughing up blood Worsening weakness, drowsiness, headache, or stiff neck Increased wheezing not helped with medication, shortness of breath, or pain with breathing [id number] [employer]. [address] [place] [address]. All rights reserved. This information is not intended as a substitute for professional medical care. Always follow yourhealthcare professional's instructions. Additional Information VACCINATE! IT SAVES LIVES! Members of the community who have not yet received the COVID-19 vaccine and would like to receive it can visit one of [facility] vaccine clinics. There are many vaccine clinic locations within the [facility]. For locations and available times, please visit www.[email or web address].[place].gov/. It is important to note that some COVID mobile vaccine clinics are held outdoors and may be canceled in rainy or stormy conditions. To learn more about pediatric vaccinations (ages 5-11), we invite you to visit the [facility] webpage. [email or web address]/[email or web address] learn more about the COVID-19 vaccine, we invite you to visit the CDC website for a list of frequently asked questions. https://www.cdc.gov/coronavirus/2019-ncov/vaccines/faq.html [employer] Patient Portal Access Instructions: Stay connected with your healthcare team and access your personal medical information anytime with the [employer] Patient Portal. If you would like a full copy of your medical records please contact the [facility] Medical Records Department Monday through Monday between 8a.m. and 4:30p.m. Please follow the directions below to access the portal: 1.Access the email account you provided upon registration to the [facility].2.Look for an invitation email from [facility].3.Open the email and access the invitation link: Accept Invitation to [facility]4.Fill in the required orr to create your account. Sign into [email or web address] with your username and password that you created in the above steps to stay up to date. You can then view a summary of results, a summary of your visits, and the ability to download your summaries to your computer or send the information securely to a physician. Remember that your healthcare information is confidential, so carefully consider who you will allow to register on the [facility] Patient Portal for access to your information. You can also access the [facility] Patient Portal on the [employer]. Simply click on Health Records under HealthData and then click on the [facility] logo. HOW TO SAFELY DISPOSE OF PRESCRIPTION MEDICATIONS Please use one of the following methods to safely dispose of your unused medications. 1.Use a drug disposal kit: the drug disposal pouch allows you to safely discard your old and unuseddrugs. Ask your nurse to give you one when you are discharged.2.Visit a local take-back location: Many local pharmacies and police departments have programs that collect old and unwanted prescriptiondrugs. Call your local pharmacy or go to http://bit.ly/8P2Kg0v to find one close to you.3.Make use of household items: Use cat litter or old coffee grounds to dispose medications if other options arenot available. Mix your drugs with these household products, seal them in an airtight container andthrow it into the garbage. Call [facility]: [phone] to be sure your drugs can be disposed of in this way. Some medicines may require a different approach.4.Never flush your medications down the toilet. IF YOU HAVE BEEN PRESCRIBED AN OPIOIDS FOR PAIN If you have been prescribed an opioid (such as hydrocodone, oxycodone or morphine), it is critical to understand the possible side effects and risks of opioid pain medications. Even when taken as directed, opioids can have several side effects including: Tolerance, meaning you might need to take more of a medication for the same pain relief. Nausea, vomiting and/or constipation. Sleepiness, dizziness, dry mouth, confusion, depression or itching. Physical dependence, meaning you have withdrawal symptoms when a medication is stopped ? this can develop within a few days. KNOW YOUR RESPONSIBILITIES It is important to know exactly how much and how often to take the opioid pain medications you are prescribed. Never take opioids in higher amounts or more often than prescribed. Do not combine opioids with alcohol or other drugs that cause drowsiness, such as benzodiazepines, also known as benzos,including diazepam and alprazolam, muscle relaxants or sleep aids. Never sell or share prescriptionopioids. This is illegal. Store opioids in a secure place and out of reach of others (including children, family, friends and visitors). The last page(s) of this document has been signed and retained as a CHART COPY Signatures Patient Education Materials Bronchitis With Wheezing (Adult) Medication Leaflets My discharge plan and instructions have been reviewed and explained to me and IWARREN RAY J understand my current condition and have read and understand these discharge instructions. I have received awritten copy of the plan/instructions. If I have questions, I am aware that I should contact my doctor. Patient/Dealer Support Technician Signature: Date/Time: Relationship to Patient: Witness Name/Signature: Date/Time: [facility]01-16-2024 Note ORIGINAL EXAMINATION: ONE XRAY VIEW OF THE CHEST 06/13/2023 12:35 am COMPARISON: Radiograph of the chest May 05, 2023 HISTORY: ORDERING SYSTEM PROVIDED HISTORY: Reason for Exam: SOB/cough/fever FINDINGS: Cardiomediastinal silhouette is unchanged in size. Costophrenic angles are sharp. No radiographic pneumothorax. No definite focal consolidation. Osseous structures grossly unchanged. IMPRESSION: Suboptimal exam due to patient body habitus. No definite focal consolidation. Interpreted by: Trace Fierro Preliminary Report By: Trace Fierro Electronically signed By Trace Fierro Dictated Date: 06/13/2023 12:39:17 AM Prelim Date: 06/13/2023 12:39:50 AM Sign Date: 06/13/2023 12:39:50 AM Ordering Provider: [facility]01-12-2024 Hospital Discharge instructions Patient Education 06/09/2023 20:03:33 Atrial Fibrillation, Bnug-ck-Frdq Atrial Fibrillation Atrial fibrillation is a type of heartbeat that is irregular or fast (rapid). If you have this condition, your heart beats without any order. This makes it hard for your heart to pump blood in a normal way. Having this condition gives you more risk for stroke, heart failure, and other heart problems. Atrial fibrillation may start all of a sudden and then stop on its own, or it may become a long-lasting problem. What are the causes? This condition may be caused by heart conditions, such as: High blood pressure. Heart failure. Heart valve disease. Heart surgery. Other causes include: Pneumonia. Obstructive sleep apnea. Lung cancer. Thyroid disease. Drinking too much alcohol. Sometimes the cause is not known. What increases the risk? You are more likely to develop this condition if: You smoke. You are older. You have diabetes. You are overweight. You have a family history of this condition. You exercise often and hard. What are the signs or symptoms? Common symptoms of this condition include: A feeling like your heart is beating very fast. Chest pain. Feeling short of breath. Feeling light-headed or weak. Getting tired easily. Follow these instructions at home: Medicines Take otne-vpg-hzcquzm and prescription medicines only as told by your doctor. If your doctor gives you a blood-thinning medicine, take it exactly as told. Taking too much of it can cause bleeding. Taking too little of it does not protect you against clots. Clots can cause a stroke. Lifestyle Do not use any tobacco products. These include cigarettes, chewing tobacco, and e-cigarettes. If you need help quitting, ask your doctor. Do not drink alcohol. Do not drink beverages that have caffeine. These include coffee, soda, and tea. Follow diet instructions as told by your doctor. Exercise regularly as told by your doctor. General instructions If you have a condition that causes breathing to stop for a short period of time (apnea), treat it as told by your doctor. Keep a healthy weight. Do not use diet pills unless your doctor says they are safe for you. Diet pills may make heart problems worse. Keep all follow-up visits as told by your doctor. This is important. Contact a doctor if: You notice a change in the speed, rhythm, or strength of your heartbeat. You are taking a blood-thinning medicine and you see more bruising. You get tired more easily when you move or exercise. You have a sudden change in weight. Get help right away if: You have pain in your chest or your belly (abdomen). You have trouble breathing. You have blood in your vomit, poop, or pee (urine). You have any signs of a stroke. BE FAST is an easy way to remember the main warning signs: ?B - Balance. Signs are dizziness, sudden trouble walking, or loss of balance. ?E - Eyes. Signs are trouble seeing or a change in how you see. ?F - Face. Signs are sudden weakness or loss of feeling in the face, or the face or eyelid droopingon one side. ?A - Arms. Signs are weakness or loss of feeling in an arm. This happens suddenly and usually on one side of the body. ?S - Speech. Signs are sudden trouble speaking, slurred speech, or trouble understanding what people say. ?T - Time. Time to call emergency services. Write down what time symptoms started. You have other signs of a stroke, such as: ?A sudden, very bad headache with no known cause. ?Feeling sick to your stomach (nausea). ?Throwing up (vomiting). ?Jerky movements you cannot control (seizure). These symptoms may be an emergency. Do not wait to see if the symptoms will go away. Get medical help right away. Call your local emergency services (911 in the [place] Do not drive yourself to the hospital. Summary Atrial fibrillation is a type of heartbeat that is irregular or fast (rapid). You are at higher risk of this condition if you smoke, are older, have diabetes, or are overweight. Follow your doctor's instructions about medicines, diet, exercise, and follow-up visits. Get help right away if you think that you have signs of a stroke. This information is not intended to replace advice given to you by your health care provider. Make sure you discuss any questions you have with your health care provider. Document Released: 02/21/2009 Document Revised: 07/19/2018 Document Reviewed: 07/06/2018 [employer] Patient Education 2020 [employer]. Follow Up Care 06/06/2023 16:24:50 With:ISADORA CORREA Address: [address] [place] [address]- [phone] When: Unknown Comments:PLEASE CALL THIS OFFICE TO SCHEDULE A HOSPITAL FOLLOW UP APPOINTMENT With:MOY WATTS MD Address: [address] [place] [address] [address] [place], [place] [address]- [phone] When:07/17/2023 15:15:00 Comments:THIS APPOINTMENT WILL BE WITH ZHOU ESPINOSA CNP [facility] 01-12-2024 Note Discharge Instructions Thank you for allowing [facility] to assist you with your healthcare needs. The following is importantdischarge information regarding your hospital visit. Your Care Team ISADORA CORREA Your Diagnosis Shortness of breath What to do next Scheduled Follow-Up Appointments Appointment Type When With Where Contact InformationPC OV 06/20/2023 02:30 PM EST ISADORA CORREA [facility] CV OV 07/17/2023 03:15 PM EST ZHOU ESPINOSA [facility] Follow Up Appointments Follow Up with MOY WATTS MD When 07/17/2023 03:15 PM EST Why: THIS APPOINTMENT WILL BE WITH ZHOU ESPINOSA CNP Where: [address] [place] [address] [address] [place], [place] [address]- [phone] Follow Up with ISADORA CORREA When Why: PLEASE CALL THIS OFFICE TO SCHEDULE A HOSPITAL FOLLOW UP APPOINTMENT Where: [address] [facility] [place] [address]- [phone] The Following Activity and Diet Have Been Ordered for You No qualifying data available. Discharge Diet - Ordered -- Type of Diet: Cardiac, Sodium limit: 2 gm, 06/09/23 12:44:00 EST The Following Equipment Has Been Ordered for You Discharge Home Equipment Discharge Communication Order - Ordered -- Please call [facility] office if you experience any chest pain/discomfort, increased shortness of breath or weight gain/leg swelling for further instructions., 06/09/23 12:44:54 EST The Following Treatments Have Been Ordered for You Discharge Labs No qualifying data available. Discharge Radiology No qualifying data available. Other Therapies No qualifying data available. Post Acute Orders No qualifying data available. Someone Will Contact You Regarding These Home Health Referrals No home referrals have been ordered for you. No one will call you. Allergies NKA Medications Please ask your primary doctor or pharmacist before taking any other medication not listed, including over the counter drugs, herbal medications, vitamins and or supplements as they may interact withyour home medications. What How Much When Why Instructions Last Dose New dofetilide (Tikosyn 250 mcg oral capsule) 1 cap by mouth Two (2) times a day Refills: 2 Pickup at [facility] #[id number] Changed FLUoxetine (FLUoxetine 10 mg oral capsule) 1 cap by mouth Once a day Pickup at [facility] #[id number] Unchanged allopurinol (allopurinol 100 mg oral tablet) 1 tab(s) by mouth Once a day Unchanged furosemide (Lasix 40 mg oral tablet) See instructions 1 tab in AM and 0.5 tab in PM Unchanged hydrOXYzine (Vistaril 25 mg oral capsule) 1 cap by mouth Four (4) times a day as needed for as needed for anxiety Unchanged metoprolol (Toprol-XL 100 mg oral tablet, extended release) 1 tab(s) by mouth Two (2) times a day Shortness of breath do not crush or chew Unchanged omeprazole (omeprazole 40 mg oral delayed release capsule) 1 cap by mouth Two (2) times a day before a meal. sent in absence of PCP Unchanged rivaroxaban (Xarelto 20 mg oral tablet) 1 tab(s) by mouth Daily at bedtime Unchanged sacubitril-valsartan (sacubitril-valsartan 49 mg-51 mg oral tablet) 1 tab(s) by mouth Two (2) times a day Unchanged spironolactone (spironolactone 25 mg oral tablet) 1 tab(s) by mouth Once a day Unchanged traZODone (traZODone 100 mg oral tablet) 1 tab(s) by mouth Daily at bedtime Pharmacy Information [facility] #[id number]: [address], [place] [id number] [phone] Please take this list to your next doctor s visit. Bring all medications you take, including over the counter medications, herbals and other supplements with you to your doctor s visit. Patients and families are reminded to discard old lists and to update any records with all medication providers or retail pharmacies. Medication Leaflets dofetilide (mathias FET i lide) Rutn What is the most important information I should know about dofetilide? You should not take dofetilide if you have severe kidney disease or a history of Long QT syndrome. Serious drug interactions can occur when certain medicines are used together with dofetilide. Tell each of your healthcare providers about all medicines you use now, and any medicine you start or stop using. You will need to spend at least 3 days in a hospital setting when you first start taking dofetilide. This is so your heart rhythm and kidney function can be monitored in case the medicine causes serious side effects. What is dofetilide? Dofetilide is a heart rhythm medicine, also called an antiarrhythmic. Dofetilide is used to help keep the heart beating normally in people with certain heart rhythm disorders of the atrium (the upper chambers of the heart that allow blood to flow into the heart). Dofetilide is used in people with atrial fibrillation or atrial flutter. Dofetilide may also be used for purposes not listed in this medication guide. What should I discuss with my health care provider before taking dofetilide? You should not take dofetilide if you are allergic to it, or if you have: severe kidney disease (or if you are on dialysis); or a history of Long QT syndrome. Some medicines can cause unwanted or dangerous effects when used with dofetilide, and should not beused at the same time. Your doctor may need to change your treatment plan if you use any of the following drugs: cimetidine; dolutegravir; ketoconazole; megestrol; prochlorperazine; trimethoprim (Proloprim, Trimpex, Bactrim, Septra); verapamil; or a diuretic (water pill) that contains hydrochlorothiazide (HCTZ), such as Accuretic, Aldactazide, Atacand HCT, Benicar HCT, Diovan HCT, Dyazide, Exforge HCT, Hyzaar, Lopressor HCT, Maxzide, Micardis HCT, Monopril HCT, Prinzide, Tekturna HCT, Vaseretic, and others. To make sure dofetilide is safe for you, tell your doctor if you have: heart disease, high blood pressure; liver or kidney disease; depression, mental illness; asthma or allergies; any active infection; skin problems; or an electrolyte imbalance (such as low levels of potassium or magnesium in your blood). It is not known whether this medicine will harm an unborn baby. Tell your doctor if you are or plan to become while using this medicine. It is not known whether dofetilide passes into breast milk or if it could harm a nursing baby. You should not breast-feed while you are using dofetilide. How should I take dofetilide? Dofetilide is available only from a hospital or specialty pharmacy. You will need to spend at least 3 days in a hospital setting when you first start taking dofetilide. This is so your heart rhythm and kidney function can be monitored in case the medicine causes serious side effects. Follow all directions on your prescription label. Do not take this medicine in larger or smaller amounts or for longer than recommended. You may take dofetilide with or without food. You should not skip doses or stop using dofetilide suddenly. Stopping suddenly may make your condition worse. Follow your doctor's instructions about tapering your dose. Tell your doctor if you have a prolonged illness that causes severe diarrhea, vomiting, or heavy sweating. These conditions can cause an electrolyte imbalance, making it dangerous for you to use dofetilide. Your blood pressure will need to be checked often. Your kidney function may also need to be checkedwith frequent blood tests. Store at room temperature away from moisture and heat. What happens if I miss a dose? Skip the missed dose and take your next dose at the usual time to stay on schedule. Do not take extra medicine to make up the missed dose. What happens if I overdose? Seek emergency medical attention or call the Poison Help line at . What should I avoid while taking dofetilide? Grapefruit and grapefruit juice may interact with dofetilide and lead to unwanted side effects. Discuss the use of grapefruit products with your doctor. What are the possible side effects of dofetilide? Get emergency medical help if you have any of these signs of an allergic reaction: hives; difficultbreathing; swelling of your face, lips, tongue, or throat. Call your doctor at once if you have: headache with chest pain and severe dizziness, fainting, fast or pounding heartbeats; loss of appetite, vomiting or severe diarrhea; or low magnesium or potassium--confusion, uneven heart rate, increased thirst or urination, sweating, jerking muscle movements, leg discomfort, muscle weakness or limp feeling. Common side effects may include: mild headache; mild dizziness; or cold symptoms such as stuffy nose, sneezing, sore throat. This is not a complete list of side effects and others may occur. Call your doctor for medical advice about side effects. You may report side effects to FDA at 6-381-IOT-9037. What other drugs will affect dofetilide? Other drugs may interact with dofetilide, including prescription and nlft-ezr-zuuxnte medicines, vitamins, and herbal products. Tell each of your health care providers about all medicines you use nowand any medicine you start or stop using. Where can I get more information? Your doctor or pharmacist can provide more information about dofetilide. Remember, keep this and all other medicines out of the reach of children, never share your medicines with others, and use this medication only for the indication prescribed. Every effort has been made to ensure that the information provided by [employer]. ('[employer]') is accurate, up-to-date, and complete, but no guarantee is made to that effect. Drug information contained herein may be time sensitive. [employer] information has been compiled for use by healthcare practitioners and consumers in the [place] and therefore [employer] does not warrant that uses outside of the [place] are appropriate, unless specifically indicated otherwise. [employer] drug information does not endorse drugs, diagnose patients or recommend therapy. [employer] drug information isan informational resource designed to assist licensed healthcare practitioners in caring for their p atients and/or to serve consumers viewing this service as a supplement to, and not a substitute for, the expertise, skill, knowledge and judgment of healthcare practitioners. The absence of a warningfor a given drug or drug combination in no way should be construed to indicate that the drug or drug combination is safe, effective or appropriate for any given patient. [employer] does not assume any responsibility for any aspect of healthcare administered with the aid of information [employer] provides. The information contained herein is not intended to cover all possible uses, directions, precautions, warnings, drug interactions, allergic reactions, or adverse effects. If you have questions about the drugs you are taking, check with your doctor, nurse or pharmacist. Copyright 2497-4666 [employer]. Version: 4.01. Revision Date: 09/09/2015. Education Materials Atrial Fibrillation Atrial fibrillation is a type of heartbeat that is irregular or fast (rapid). If you have this condition, your heart beats without any order. This makes it hard for your heart to pump blood in a normal way. Having this condition gives you more risk for stroke, heart failure, and other heart problems. Atrial fibrillation may start all of a sudden and then stop on its own, or it may become a long-lasting problem. What are the causes? This condition may be caused by heart conditions, such as: High blood pressure. Heart failure. Heart valve disease. Heart surgery. Other causes include: Pneumonia. Obstructive sleep apnea. Lung cancer. Thyroid disease. Drinking too much alcohol. Sometimes the cause is not known. What increases the risk? You are more likely to develop this condition if: You smoke. You are older. You have diabetes. You are overweight. You have a family history of this condition. You exercise often and hard. What are the signs or symptoms? Common symptoms of this condition include: A feeling like your heart is beating very fast. Chest pain. Feeling short of breath. Feeling light-headed or weak. Getting tired easily. Follow these instructions at home: Medicines Take ocvw-zid-brhvkog and prescription medicines only as told by your doctor. If your doctor gives you a blood-thinning medicine, take it exactly as told. Taking too much of it can cause bleeding. Taking too little of it does not protect you against clots. Clots can cause a stroke. Lifestyle Do not use any tobacco products. These include cigarettes, chewing tobacco, and e-cigarettes. If you need help quitting, ask your doctor. Do not drink alcohol. Do not drink beverages that have caffeine. These include coffee, soda, and tea. Follow diet instructions as told by your doctor. Exercise regularly as told by your doctor. General instructions If you have a condition that causes breathing to stop for a short period of time (apnea), treat it as told by your doctor. Keep a healthy weight. Do not use diet pills unless your doctor says they are safe for you. Diet pills may make heart problems worse. Keep all follow-up visits as told by your doctor. This is important. Contact a doctor if: You notice a change in the speed, rhythm, or strength of your heartbeat. You are taking a blood-thinning medicine and you see more bruising. You get tired more easily when you move or exercise. You have a sudden change in weight. Get help right away if: You have pain in your chest or your belly (abdomen). You have trouble breathing. You have blood in your vomit, poop, or pee (urine). You have any signs of a stroke. BE FAST is an easy way to remember the main warning signs: ? B - Balance. Signs are dizziness, sudden trouble walking, or loss of balance. ? E - Eyes. Signs are trouble seeing or a change in how you see. ? F - Face. Signs are sudden weakness or loss of feeling in the face, or the face or eyelid drooping on one side. ? A - Arms. Signs are weakness or loss of feeling in an arm. This happens suddenly and usually on oneside of the body. ? S - Speech. Signs are sudden trouble speaking, slurred speech, or trouble understanding what peoplesay. ? T - Time. Time to call emergency services. Write down what time symptoms started. You have other signs of a stroke, such as: ? A sudden, very bad headache with no known cause. ? Feeling sick to your stomach (nausea). ? Throwing up (vomiting). ? Jerky movements you cannot control (seizure). These symptoms may be an emergency. Do not wait to see if the symptoms will go away. Get medical help right away. Call your local emergency services (911 in the [place] Do not drive yourself to the hospital. Summary Atrial fibrillation is a type of heartbeat that is irregular or fast (rapid). You are at higher risk of this condition if you smoke, are older, have diabetes, or are overweight. Follow your doctor's instructions about medicines, diet, exercise, and follow-up visits. Get help right away if you think that you have signs of a stroke. This information is not intended to replace advice given to you by your health care provider. Make sure you discuss any questions you have with your health care provider. Document Released: 02/21/2009 Document Revised: 07/19/2018 Document Reviewed: 07/06/2018 [employer] Patient Education 2020 [employer]. Additional Information VACCINATE! IT SAVES LIVES! Members of the community who have not yet received the COVID-19 vaccine and would like to receive it can visit one of [facility] vaccine clinics. There are many vaccine clinic locations within the [facility]. For locations and available times, please visit [email or web address].[place].gov/. It is important to note that some COVID mobile vaccine clinics are held outdoors and may be canceled in rainy or stormy conditions. To learn more about pediatric vaccinations (ages 5-11), we invite you to visit the [facility] webpage. [email or web address] learn more about the COVID-19 vaccine, we invite you to visit the CDC website for a list of frequently asked questions.https://www.cdc.gov/coronavirus/2019-ncov/vaccines/faq.html [employer] Patient Portal Access Instructions: Stay connected with your healthcare team and access your personal medical information anytime with the [employer] Patient Portal. Please follow the directions below to create your [employer] account: 1.Access the email account you provided upon registration to the hospital/physician office.2.Look for an invitation email from [facility].3.Open the email and access the invitation link: [facility] to [facility].4.Fill in the required orr to create your account. To access your account, visit [email or web address]. Click the blue button labeled Access Patient Portal and then log in with the username and password that you created in the steps above. You will be able to view your test results, lab results, a summary of your visits, upcoming appointments and more. There is also a convenient messaging option where you can send secure messages to your p rovider. In addition, you will have the ability to download any documents or summaries to your computer and/or send the information securely to a physician. Remember that your healthcare information is confidential, so carefully consider who you will allowto register on the [facility] Patient Portal for access to your information. You can also access the [facility] Patient Portal on the [facility] frida. Simply click on Patient Portal and then log into your account. If you would like to receive a full copy of your medical records, please contact the [facility] Medical Records Department by calling [phone], Monday through Monday between 8 a.m. and 4:30 p.m. HOW TO SAFELY DISPOSE OF PRESCRIPTION MEDICATIONS Please use one of the following methods to safely dispose of your unused medications. 1.Use a drug disposal kit: the drug disposal pouch allows you to safely discard your old and unuseddrugs. Ask your nurse to give you one when you are discharged.2.Visit a local take-back location: Many local pharmacies and police departments have programs that collect old and unwanted prescriptiondrugs. Call your local pharmacy or go to http://bit.[employer]/2O5Hg0n to find one close to you.3.Make use of household items: Use cat litter or old coffee grounds to dispose medications if other options arenot available. Mix your drugs with these household products, seal them in an airtight container andthrow it into the garbage. Call [facility]: [phone] to be sure your drugs can be disposed of in this way. Some medicines may require a different approach.4.Never flush your medications down the toilet. IF YOU HAVE BEEN PRESCRIBED AN OPIOID FOR PAIN If you have been prescribed an opioid (such as hydrocodone, oxycodone or morphine), it is critical to understand the possible side effects and risks of opioid pain medications. Even when taken as directed, opioids can have several side effects including: Tolerance, meaning you might need to take more of a medication for the same pain relief. Nausea, vomiting and/or constipation. Sleepiness, dizziness, dry mouth, confusion, depression or itching. Physical dependence, meaning you have withdrawal symptoms when a medication is stopped, can develop within a few days. KNOW YOUR RESPONSIBILITIES It is important to know exactly how much and how often to take the opioid pain medications you are prescribed. Never take opioids in higher amounts or more often than prescribed. Do not combine opioids with alcohol or other drugs that cause drowsiness, such as benzodiazepines, also known as benzos, including diazepam and alprazolam, muscle relaxants or sleep aids. Never sell or share prescription opioids. This is illegal. Store opioids in a secure place and out of reach of others (including children, family, friends and visitors). The last page of this document has been signed and retained as a CHART COPY. Signatures Patient Education Materials Atrial Fibrillation, Oplk-cm-Icmo Medication Leaflets Selina My discharge plan and instructions have been reviewed and explained to me and I,SOCORRO KELLEY understand my current condition and have read and understand these discharge instructions. I have received awritten copy of the plan/instructions. If I have questions, I am aware that I should contact my doctor. Patient/Dealer Support Technician Signature: Date/Time: Relationship to Patient: Witness Name/Signature: Date/Time: [id number] Discharge summary Date of Service 06/09/23 Discharge Diagnosis Other persistent atrial fibrillation (I48.19 - ICD-10-CM) Encounter for therapeutic drug level monitoring (Z51.81 - ICD-10-CM) Morbid (severe) obesity due to excess calories (E66.01 - ICD-10-CM) Hypertensive heart disease without heart failure (I11.9 - ICD-10-CM) Gastro-esophageal reflux disease without esophagitis (K21.9 - ICD-10-CM) penitentiary (current) use of anticoagulants (Z79.01 - ICD-10-CM) Shortness of breath (R06.02 - ICD-10-CM) Additional Orders: Ordered: Communication Order (continuous),06/09/23 12:44:00 EST, ok to DC home after 5th dose of tikosyn this evening as long as QT is reviewed by timber poisoner fellow, Constant order Ordered: Discharge,06/09/23 12:44:00 EST, Discharged to: Home Ordered: Discharge Communication Order,Please call [facility] office if you experience any chest pain/discomfort, increased shortness of breath or weight gain/leg swelling for further instructions., 06/09/23 12:44:54 EST Ordered: Discharge Diet,Type of Diet: Cardiac, Sodium limit: 2 gm, 06/09/23 12:44:00 EST Ordered: FLUoxetine 10 mg oral capsule,Dose : 10 mg = 1 cap(s), Oral, qDay, # 30 cap(s), 2 Refill(s), Pharmacy: [email or web address] #[id number], 176, cm, 06/07/23 13:36:00 EST, Height, kg, 06/07/23 13:36:00 EST, Dosing Weight Ordered: Tikosyn 250 mcg oral capsule,Dose : 250 mcg = 1 cap(s), Oral, BID, # 60 cap(s), 2 Refill(s), Pharmacy: [facility] #[id number], 176, cm, 06/07/23 13:36:00 EST, Height, kg, 06/07/23 13:36:00 EST, Dosing Weight Hospital Course Persistent atrial fibrillation-suppressed, Toprol-XL/Xarelto Cardiomyopathy, LVEF 30-35%, no device GDMT: Entresto, Aldactone, Toprol-XL Severe obesity Hypertension GERD CV: Jignesh 52-year-old male presents to the hospital for elective Tikosyn loading for paroxysmal atrial fibrillation anticoagulated on Xarelto along with AV ryan kp Toprol-XL. Patient presented in sinus rhythm. Was monitored for 5 doses to 50 mcg dofetilide under telemetry without excessive QT prolongation. Patient was discharged home in stable condition with no other medication changes with close follow-up with PCP and cardiology. Fluoxetine dose was decreased to 10 mg qd due avoid excessive Qt prolongation. Allergies NKA Consults No qualifying data available. Physical Exam Vitals and Measurements T: 36.6 C (Oral) TMIN: 36.5 C (Oral) TMAX: 36.8 C (Oral) HR: 59(Monitored) RR: 20 BP: 126/64 SpO2: 93% WT: 151.6 kg Weight Current Weight Dosing Weight: 152.9 kg (06/07/23) Current Weight: 151.6 kg (06/09/23) Current Weight: 154.2 kg (06/08/23) Constitutional: no distress, appears stated age ENT: No thyroid masses Respiratory: Clear to auscultation, no adventitious sounds Cardiovascular: RRR, S1 and S2, no murmurs, JVP 8-10 cm H2O, no pedal edema GI: Soft, nondistended, bowel sounds present Musculoskeletal: no deformity Skin: Warm to touch, dry Neurological: Alert and oriented Code Status Code Status - Ordered -- 06/07/23 16:06:00 EST, Full Code, Constant Order Discharge Date 06/09/23 Medications New Prescription dofetilide (Tikosyn 250 mcg oral capsule)1 cap by mouth two (2) times a day. Refills: 2. Changed FLUoxetine (FLUoxetine 10 mg oral capsule)1 cap by mouth once a day. Refills: 2. Unchanged allopurinol (allopurinol 100 mg oral tablet)1 tab(s) by mouth once a day. Refills: 3. furosemide (Lasix 40 mg oral tablet)1 tab in AM and 0.5 tab in PM. Refills: 0. hydrOXYzine (Vistaril 25 mg oral capsule)1 cap by mouth four (4) times a day as needed as needed for anxiety. metoprolol (Toprol-XL 100 mg oral tablet, extended release)1 tab(s) by mouth two (2) times a day. do not crush or chew. Refills: 3. omeprazole (omeprazole 40 mg oral delayed release capsule)1 cap by mouth two (2) times a day. before a meal. sent in absence of PCP. Refills: 0. rivaroxaban (Xarelto 20 mg oral tablet)1 tab(s) by mouth daily at bedtime. Refills: 3. sacubitril-valsartan (sacubitril-valsartan 49 mg-51 mg oral tablet)1 tab(s) by mouth two (2) times a day. Refills: 3. spironolactone (spironolactone 25 mg oral tablet)1 tab(s) by mouth once a day. Refills: 5. traZODone (traZODone 100 mg oral tablet)1 tab(s) by mouth daily at bedtime. Refills: 3. Follow Up Follow Up with MOY WATTS MD When 07/07/2023 01:00 PM EST Where: [address] [place] [address]- [phone] Follow Up with ISADORA CORREA When Why: PLEASE CALL THIS OFFICE TO SCHEDULE A HOSPITAL FOLLOW UP APPOINTMENT Where: [address] [place] [address]- [phone] Follow Up Appointments No qualifying data available. Follow Up Labs/Studies Discharge Labs No Follow-up Labs Discharge Studies No Follow-up Studies Discharge Diet Discharge Diet - Ordered -- Type of Diet: Cardiac, Sodium limit: 2 gm, 06/09/23 12:44:00 EST Discharge Activity No qualifying data available. Condition on Discharge stable Discharge Disposition home Digitally Signed by AMELIA RENAE MD on 06/09/2023 12:53 PM [id number] Discharge summary Date of Service 06/09/23 Discharge Diagnosis Other persistent atrial fibrillation (I48.19 - ICD-10-CM) Encounter for therapeutic drug level monitoring (Z51.81 - ICD-10-CM) Morbid (severe) obesity due to excess calories (E66.01 - ICD-10-CM) Hypertensive heart disease without heart failure (I11.9 - ICD-10-CM) Gastro-esophageal reflux disease without esophagitis (K21.9 - ICD-10-CM) penitentiary (current) use of anticoagulants (Z79.01 - ICD-10-CM) Shortness of breath (R06.02 - ICD-10-CM) Additional Orders: Ordered: Communication Order (continuous),06/09/23 12:44:00 EST, ok to DC home after 5th dose of tikosyn this evening as long as QT is reviewed by timber poisoner fellow, Constant order Ordered: Discharge,06/09/23 12:44:00 EST, Discharged to: Home Ordered: Discharge Communication Order,Please call [facility] office if you experience any chest pain/discomfort, increased shortness of breath or weight gain/leg swelling for further instructions., 06/09/23 12:44:54 EST Ordered: Discharge Diet,Type of Diet: Cardiac, Sodium limit: 2 gm, 06/09/23 12:44:00 EST Ordered: FLUoxetine 10 mg oral capsule,Dose : 10 mg = 1 cap(s), Oral, qDay, # 30 cap(s), 2 Refill(s), Pharmacy: [email or web address] #[id number], 176, cm, 06/07/23 13:36:00 EST, Height, kg, 06/07/23 13:36:00 EST, Dosing Weight Ordered: Tikosyn 250 mcg oral capsule,Dose : 250 mcg = 1 cap(s), Oral, BID, # 60 cap(s), 2 Refill(s), Pharmacy: [email or web address] #[id number], 176, cm, 06/07/23 13:36:00 EST, Height, kg, 06/07/23 13:36:00 EST, Dosing Weight Hospital Course Persistent atrial fibrillation-suppressed, Toprol-XL/Xarelto Cardiomyopathy, LVEF 30-35%, no device GDMT: Entresto, Aldactone, Toprol-XL Severe obesity Hypertension GERD CV: Jignesh 52-year-old male presents to the hospital for elective Tikosyn loading for paroxysmal atrial fibrillation anticoagulated on Xarelto along with AV ryan kp Toprol-XL. Patient presented in sinus rhythm. Was monitored for 5 doses to 50 mcg dofetilide under telemetry without excessive QT prolongation. Patient was discharged home in stable condition with no other medication changes with close follow-up with PCP and cardiology. Fluoxetine dose was decreased to 10 mg qd due avoid excessive Qt prolongation. Allergies NKA Consults No qualifying data available. Physical Exam Vitals and Measurements T: 36.6 C (Oral) TMIN: 36.5 C (Oral) TMAX: 36.8 C (Oral) HR: 59(Monitored) RR: 20 BP: 126/64 SpO2: 93% WT: 151.6 kg Weight Current Weight Dosing Weight: 152.9 kg (06/07/23) Current Weight: 151.6 kg (06/09/23) Current Weight: 154.2 kg (06/08/23) Constitutional: no distress, appears stated age ENT: No thyroid masses Respiratory: Clear to auscultation, no adventitious sounds Cardiovascular: RRR, S1 and S2, no murmurs, JVP 8-10 cm H2O, no pedal edema GI: Soft, nondistended, bowel sounds present Musculoskeletal: no deformity Skin: Warm to touch, dry Neurological: Alert and oriented Code Status Code Status - Ordered -- 06/07/23 16:06:00 EST, Full Code, Constant Order Discharge Date 06/09/23 Medications New Prescription dofetilide (Tikosyn 250 mcg oral capsule)1 cap by mouth two (2) times a day. Refills: 2. Changed FLUoxetine (FLUoxetine 10 mg oral capsule)1 cap by mouth once a day. Refills: 2. Unchanged allopurinol (allopurinol 100 mg oral tablet)1 tab(s) by mouth once a day. Refills: 3. furosemide (Lasix 40 mg oral tablet)1 tab in AM and 0.5 tab in PM. Refills: 0. hydrOXYzine (Vistaril 25 mg oral capsule)1 cap by mouth four (4) times a day as needed as needed for anxiety. metoprolol (Toprol-XL 100 mg oral tablet, extended release)1 tab(s) by mouth two (2) times a day. do not crush or chew. Refills: 3. omeprazole (omeprazole 40 mg oral delayed release capsule)1 cap by mouth two (2) times a day. before a meal. sent in absence of PCP. Refills: 0. rivaroxaban (Xarelto 20 mg oral tablet)1 tab(s) by mouth daily at bedtime. Refills: 3. sacubitril-valsartan (sacubitril-valsartan 49 mg-51 mg oral tablet)1 tab(s) by mouth two (2) times a day. Refills: 3. spironolactone (spironolactone 25 mg oral tablet)1 tab(s) by mouth once a day. Refills: 5. traZODone (traZODone 100 mg oral tablet)1 tab(s) by mouth daily at bedtime. Refills: 3. Follow Up Follow Up with MOY WATTS MD When 07/07/2023 01:00 PM EST Where: [address] [facility] [place] [address]- [phone] Follow Up with ISADORA CORREALEADERSHIP DEVELOPMENT MANAGER When Why: PLEASE CALL THIS OFFICE TO SCHEDULE A HOSPITAL FOLLOW UP APPOINTMENT Where: [address] [place] [address]- [phone] Follow Up Appointments No qualifying data available. Follow Up Labs/Studies Discharge Labs No Follow-up Labs Discharge Studies No Follow-up Studies Discharge Diet Discharge Diet - Ordered -- Type of Diet: Cardiac, Sodium limit: 2 gm, 06/09/23 12:44:00 EST Discharge Activity No qualifying data available. Condition on Discharge stable Discharge Disposition home Digitally Signed by AMELIA RENAE MD on 06/09/2023 12:53 PM [id number] NoteSINUS RHYTHM LEFT AXIS DEVIATION LOW VOLTAGE, PRECORDIAL LEADS PROLONGED QT INTERVAL POOR R-WAVE PROGRESSION Electronic Signature: SADE STRAUSS MD 06/09/2023 09:53:23[facility] 01-11-2024 Cardiology Progress note Date of Service 06/08/23 Chief Complaint Persistent atrial fibrillation Subjective Second dose of Tikosyn this morning. QT 486 ms, QRS 107 ms. Objective Vitals and Measurements T: 36.3 C (Oral) TMIN: 36.3 C (Oral) TMAX: 37.0 C (Oral) HR: 58 RR: 20 BP: 116/54 SpO2: 91% WT: 154.2 kg Intake and Output 7AM Yesterday to 7AM Today Intake and Output (Last 24 hours) Intake Oral Intake 1400.00 Output Urine Voided 1100.00 Urine Count 5.00 Total Summary Total Intake 1400.00 Total Output 1100.00 Fluid Balance 300.00 Physical Exam Constitutional: no distress, appears stated age, obesity ENT: No thyroid masses Respiratory: Clear to auscultation, no adventitious sounds Cardiovascular: RRR, S1 and S2, no murmurs, JVP 8-10 cm H2O, no pedal edema GI: Soft, nondistended, bowel sounds present Musculoskeletal: no deformity Skin: Warm to touch, dry Neurological: Alert and oriented Weight Current Weight Dosing Weight: 152.9 kg (06/07/23) Current Weight: 154.2 kg (06/08/23) Medications Medications (20) Active Scheduled: (12) allopurinol 100 mg tablet 100 mg 1 tab(s), Oral, qDay brimonidine ophthalmic 0.15% soln ( 5mL) 1 drop(s), Eyes, both, q8h dofetilide 250 mcg capsule 250 mcg 1 cap(s), Oral, BID fluoxetine 10 mg Capsule 10 mg 1 cap(s), Oral, qDay furosemide 20 mg tablet 20 mg 1 tab(s), Oral, qPM furosemide 40 mg tablet 40 mg 1 tab(s), Oral, qAM magnesium oxide 400 mg Tablet 400 mg 1 tab(s), Oral, BID metoprolol succinate 100 mg ER tablet 100 mg 1 tab(s), Oral, BID rivaroxaban 20 mg tablet 20 mg 1 tab(s), Oral, with supper sacubitril-valsartan 49-51mg oral tablet 1 tab(s), Oral, BID spironolactone 25 mg tablet 25 mg 1 tab(s), Oral, qDayM traZODONE 100 mg Tablet 100 mg 1 tab(s), Oral, qHS Continuous: (0) PRN: (8) acetaminophen 325 mg Tablet 650 mg 2 tab(s), Oral, q6hr albuterol - ipratropium 2.5 mg-0.5 mg/3 mL Inhal Lisa UD 3 mL, Inhalation, q4hRT dextrose 50% Solution Disp syringe 50 mL 12.5 gram(s) 25 mL, IV Push, AsDirected docusate-senna (Senokot S) 50 mg-8.6 mg Tablet 1 tab(s), Oral, BID hydroxyzine pamoate 25 mg capsule 25 mg 1 cap(s), Oral, QID melatonin 3 mg tablet 3 mg 1 tab(s), Oral, qHS oxycodone 5 mg tablet (immediate release) 5 mg 1 tab(s), Oral, q6hr polyethylene glycol 3350 - UD packet 17 gram(s) 15 mL, Oral, BID Lab Results 06/08 06:22 WBC: 7.9 Hgb: 15.6 Hct: 45.7 Platelet: 200 Neutrophil %: 71.4 Glucose Level: 160 H Sodium Level: 137 Potassium Level: 3.4 L BUN: 8.0 Creatinine Lvl (s): 0.75 06/07 19:18 Glucose Level: 209 H Sodium Level: 137 Potassium Level: 3.6 BUN: 10.0 Creatinine Lvl (s): 0.93 06/07 18:10 WBC: 9.9 Hgb: 16.3 Hct: 47.6 Platelet: 228 Neutrophil %: 77.4 H EKG EKG - Completed -- 06/07/23 12:57:00 EST EKG - Completed -- 06/07/23 21:02:00 EST EKG - Completed -- 06/07/23 23:29:00 EST Electrocardiogram (ECG) - Ordered -- 06/07/23 16:21:00 EST Electrocardiogram (EKG) - Ordered -- 06/07/23 16:06:00 EST Electrocardiogram (EKG) - Ordered -- 06/07/23 19:06:00 EST, Unless 2 EKGs already done in the past 6 hours Electrocardiogram (EKG) - InProcess -- 06/08/23 11:00:00 EST, post tikosyn #2 Assessment/Plan Shortness of breath Persistent atrial fibrillation-suppressed, Toprol-XL/Xarelto Cardiomyopathy, LVEF 30-35%, no device GDMT: Entresto, Aldactone, Toprol-XL Severe obesity Hypertension GERD CV: Jignesh Plan: -Dofetilide load, baseline QT interval approximately 450 ms with QRS 107 ms -Daily renal function, electrolytes -Twelve-lead ECG 2 hours after each dose, continuous telemetry monitoring -Full dose Xarelto anticoagulation -Decrease fluoxetine dose to 10 mg daily to avoid excessive QT prolongation Digitally Signed by AMELIA RENAE MD on 06/08/2023 03:02 PM Digitally Signed by AMELIA RENAE MD on 06/08/2023 03:03 PM [facility] [id number] Cardiology Progress note Date of Service 06/08/23 Chief Complaint Persistent atrial fibrillation Subjective Second dose of Tikosyn this morning. QT 486 ms, QRS 107 ms. Objective Vitals and Measurements T: 36.3 C (Oral) TMIN: 36.3 C (Oral) TMAX: 37.0 C (Oral) HR: 58 RR: 20 BP: 116/54 SpO2: 91% WT: 154.2 kg Intake and Output 7AM Yesterday to 7AM Today Intake and Output (Last 24 hours) Intake Oral Intake 1400.00 Output Urine Voided 1100.00 Urine Count 5.00 Total Summary Total Intake 1400.00 Total Output 1100.00 Fluid Balance 300.00 Physical Exam Constitutional: no distress, appears stated age, obesity ENT: No thyroid masses Respiratory: Clear to auscultation, no adventitious sounds Cardiovascular: RRR, S1 and S2, no murmurs, JVP 8-10 cm H2O, no pedal edema GI: Soft, nondistended, bowel sounds present Musculoskeletal: no deformity Skin: Warm to touch, dry Neurological: Alert and oriented Weight Current Weight Dosing Weight: 152.9 kg (06/07/23) Current Weight: 154.2 kg (06/08/23) Medications Medications (20) Active Scheduled: (12) allopurinol 100 mg tablet 100 mg 1 tab(s), Oral, qDay brimonidine ophthalmic 0.15% soln ( 5mL) 1 drop(s), Eyes, both, q8h dofetilide 250 mcg capsule 250 mcg 1 cap(s), Oral, BID fluoxetine 10 mg Capsule 10 mg 1 cap(s), Oral, qDay furosemide 20 mg tablet 20 mg 1 tab(s), Oral, qPM furosemide 40 mg tablet 40 mg 1 tab(s), Oral, qAM magnesium oxide 400 mg Tablet 400 mg 1 tab(s), Oral, BID metoprolol succinate 100 mg ER tablet 100 mg 1 tab(s), Oral, BID rivaroxaban 20 mg tablet 20 mg 1 tab(s), Oral, with supper sacubitril-valsartan 49-51mg oral tablet 1 tab(s), Oral, BID spironolactone 25 mg tablet 25 mg 1 tab(s), Oral, qDayM traZODONE 100 mg Tablet 100 mg 1 tab(s), Oral, qHS Continuous: (0) PRN: (8) acetaminophen 325 mg Tablet 650 mg 2 tab(s), Oral, q6hr albuterol - ipratropium 2.5 mg-0.5 mg/3 mL Inhal Lisa UD 3 mL, Inhalation, q4hRT dextrose 50% Solution Disp syringe 50 mL 12.5 gram(s) 25 mL, IV Push, AsDirected docusate-senna (Senokot S) 50 mg-8.6 mg Tablet 1 tab(s), Oral, BID hydroxyzine pamoate 25 mg capsule 25 mg 1 cap(s), Oral, QID melatonin 3 mg tablet 3 mg 1 tab(s), Oral, qHS oxycodone 5 mg tablet (immediate release) 5 mg 1 tab(s), Oral, q6hr polyethylene glycol 3350 - UD packet 17 gram(s) 15 mL, Oral, BID Lab Results 06/08 06:22 WBC: 7.9 Hgb: 15.6 Hct: 45.7 Platelet: 200 Neutrophil %: 71.4 Glucose Level: 160 H Sodium Level: 137 Potassium Level: 3.4 L BUN: 8.0 Creatinine Lvl (s): 0.75 06/07 19:18 Glucose Level: 209 H Sodium Level: 137 Potassium Level: 3.6 BUN: 10.0 Creatinine Lvl (s): 0.93 06/07 18:10 WBC: 9.9 Hgb: 16.3 Hct: 47.6 Platelet: 228 Neutrophil %: 77.4 H EKG EKG - Completed -- 06/07/23 12:57:00 EST EKG - Completed -- 06/07/23 21:02:00 EST EKG - Completed -- 06/07/23 23:29:00 EST Electrocardiogram (ECG) - Ordered -- 06/07/23 16:21:00 EST Electrocardiogram (EKG) - Ordered -- 06/07/23 16:06:00 EST Electrocardiogram (EKG) - Ordered -- 06/07/23 19:06:00 EST, Unless 2 EKGs already done in the past 6 hours Electrocardiogram (EKG) - InProcess -- 06/08/23 11:00:00 EST, post tikosyn #2 Assessment/Plan Shortness of breath Persistent atrial fibrillation-suppressed, Toprol-XL/Xarelto Cardiomyopathy, LVEF 30-35%, no device GDMT: Entresto, Aldactone, Toprol-XL Severe obesity Hypertension GERD CV: Jignesh Plan: -Dofetilide load, baseline QT interval approximately 450 ms with QRS 107 ms -Daily renal function, electrolytes -Twelve-lead ECG 2 hours after each dose, continuous telemetry monitoring -Full dose Xarelto anticoagulation -Decrease fluoxetine dose to 10 mg daily to avoid excessive QT prolongation Digitally Signed by AMELIA RENAE MD on 06/08/2023 03:02 PM Digitally Signed by AMELIA RENAE MD on 06/08/2023 03:03 PM [facility] [id number] NoteSINUS RHYTHM LAD, CONSIDER LEFT ANTERIOR FASCICULAR BLOCK LOW VOLTAGE, PRECORDIAL LEADS BORDERLINE PROLONGED QT INTERVAL Poor R wave progression Electronic Signature: SADE STRAUSS MD 06/09/2023 09:53:37[facility] 01-10-2024 NoteSINUS RHYTHM BORDERLINE IVCD WITH LAD LOW VOLTAGE, PRECORDIAL LEADS CONSIDER ANTERIOR INFARCT Electronic Signature: SADE STRAUSS MD 06/08/2023 09:48:12[facility] 01-10-2024 History and physical note Date of Service 06/07/2023 Chief Complaint Persistent atrial fibrillation-suppressed History of Present Illness This 52-year-old male presents for elective Tikosyn loading. Most recently seen in February of last year. At that point in time he was in sinus rhythm. Does have a cardiomyopathy with ejection fraction 30 to 35%. Admission ECG demonstrates sinus rhythm. ECG on 10/27/2022 demonstrates rate controlled atrial fibrillation. QRS 107 ms, QT interval approximately 450 ms. IN interval 184 ms. Renal function, electrolytes pending. Did have prior cardioversion on 12/23/2022. Most recent echocardiogram reviewed from March 2023 which demonstrated poor images. Echocardiogram from October 2022 demonstrated ejection fraction 30-35% with severe left atrial dilation. No complaints when evaluated. Review of Systems Constitutional: No fevers/chills, no weight loss, no weight gain Eyes: No vision changes Cardiovascular: No chest pain, no palpitations Respiratory: No cough, no dyspnea, no wheezing Gastrointestinal: No nausea/vomiting, no abdominal pain, no constipation or diarrhea Genitourinary: No dysuria Musculoskeletal: No joint pain Integumentary: No bruising or rash Neurological: No headache, no weakness or numbness Endocrine: No hot or cold intolerance Physical Exam Vitals and Measurements T: 36.5 C (Oral) TMIN: 36.5 C (Oral) TMAX: 36.8 C (Oral) HR: 60(Monitored) RR: 18 BP: 126/70 SpO2: 93% HT: 176 cm WT: 152.9 kg BMI: 49.36 Weight Dosing Weight: 152.9 kg (06/07/23) Constitutional: no distress, appears stated age, obesity ENT: No thyroid masses Respiratory: Clear to auscultation, no adventitious sounds Cardiovascular: RRR, S1 and S2, no murmurs, JVP 8-10 cm H2O, no pedal edema GI: Soft, nondistended, bowel sounds present Musculoskeletal: no deformity Skin: Warm to touch, dry Neurological: Alert and oriented Lab Results No 36 Hour Lab Data Assessment/Plan Shortness of breath Persistent atrial fibrillation-suppressed, Toprol-XL/Xarelto Cardiomyopathy, LVEF 30-35%, no device GDMT: Entresto, Aldactone, Toprol-XL Severe obesity Hypertension GERD CV: Jignesh Plan: -Dofetilide load, baseline QT interval approximately 450 ms with QRS 107 ms -Daily renal function, electrolytes -Twelve-lead ECG 2 hours after each dose, continuous telemetry monitoring -Full dose Xarelto anticoagulation Problem List/Past Medical History Ongoing Anxiety Atopic dermatitis BMI 45.0-49.9, adult Cardiomyopathy Chewing tobacco nicotine dependence Diabetes mellitus Hypertension Insomnia Morbid obesity Obstructive sleep apnea Paroxysmal atrial fibrillation Prediabetes Right knee pain Screening for colon cancer Screening for ischemic heart disease Historical No qualifying data Procedure/Surgical History Cardioversion: 12/23/22 Echocardiogram: 11/11/22 Elbow Medications Home Medications (13) Active allopurinol 100 mg oral tablet 100 mg = 1 tab(s), Oral, qDay Alphagan P 0.1% ophthalmic solution 1 drop(s), Eyes, both, q8h FLUoxetine 20 mg oral tablet 20 mg = 1 tab(s), Oral, qDay Lasix 40 mg oral tablet See Instructions omeprazole 40 mg oral delayed release capsule 40 mg = 1 cap(s), Oral, BID polyethylene glycol 3350 with electrolytes oral powder for reconstitution See Instructions sacubitril-valsartan 49 mg-51 mg oral tablet 1 tab(s), Oral, BID spironolactone 25 mg oral tablet 25 mg = 1 tab(s), Oral, qDay timolol maleate 0.25% ophthalmic solution 1 drop(s), Eyes, both, BID Toprol-XL 100 mg oral tablet, extended release 100 mg = 1 tab(s), Oral, BID traZODone 100 mg oral tablet 100 mg = 1 tab(s), Oral, qHS Vistaril 25 mg oral capsule 25 mg = 1 cap(s), PRN, Oral, QID Xarelto 20 mg oral tablet 20 mg = 1 tab(s), Oral, qHS Allergies NKA Social History Alcohol Use: Past., 07/11/2022 Nutrition/Health Caffeine intake amount: pop 3 daily., 11/08/2022 Substance Abuse Use: Never., 07/11/2022 Tobacco Nicotine Use: snuff. Type: Oral (Snuff, Chew). Smokeless Tobacco Use: Former smokeless tobacco user, quit more than 30 days ago., 06/07/2023 Nicotine Use: Stopped chewing snuff October 2022. Type: Oral (Snuff, Chew). Ready to change: Yes., 12/13/2022 Nicotine Use: Former smoker, quit more than 30 days ago., 07/11/2022 Family History Cancer: Father. Heart disease: Mother and Grandparent. Stroke: Father. Immunizations pneumococcal 13-valent conjugate vaccine: 0.5 unknown unit (04/12/22) SARS-CoV-2 (COVID-19) mRNA-1273 vaccine: 0 unknown unit (09/11/20) SARS-CoV-2 (COVID-19) mRNA-1273 vaccine: 0 unknown unit (08/14/20) Code Status Code Status - Ordered -- 06/07/23 16:06:00 EST, Full Code, Constant Order Digitally Signed by AMELIA RENAE MD on 06/07/2023 04:29 PM [facility] [id number] NoteSINUS RHYTHM LAD, CONSIDER LEFT ANTERIOR FASCICULAR BLOCK LOW VOLTAGE, PRECORDIAL LEADS Electronic Signature: SADE STRAUSS MD 06/08/2023 09:47:58[facility] 01-10-2024 History and physical note Date of Service 06/07/2023 Chief Complaint Persistent atrial fibrillation-suppressed History of Present Illness This 52-year-old male presents for elective Tikosyn loading. Most recently seen in February of last year. At that point in time he was in sinus rhythm. Does have a cardiomyopathy with ejection fraction 30 to 35%. Admission ECG demonstrates sinus rhythm. ECG on 10/27/2022 demonstrates rate controlled atrial fibrillation. QRS 107 ms, QT interval approximately 450 ms. IN interval 184 ms. Renal function, electrolytes pending. Did have prior cardioversion on 12/23/2022. Most recent echocardiogram reviewed from March 2023 which demonstrated poor images. Echocardiogram from October 2022 demonstrated ejection fraction 30-35% with severe left atrial dilation. No complaints when evaluated. Review of Systems Constitutional: No fevers/chills, no weight loss, no weight gain Eyes: No vision changes Cardiovascular: No chest pain, no palpitations Respiratory: No cough, no dyspnea, no wheezing Gastrointestinal: No nausea/vomiting, no abdominal pain, no constipation or diarrhea Genitourinary: No dysuria Musculoskeletal: No joint pain Integumentary: No bruising or rash Neurological: No headache, no weakness or numbness Endocrine: No hot or cold intolerance Physical Exam Vitals and Measurements T: 36.5 C (Oral) TMIN: 36.5 C (Oral) TMAX: 36.8 C (Oral) HR: 60(Monitored) RR: 18 BP: 126/70 SpO2: 93% HT: 176 cm WT: 152.9 kg BMI: 49.36 Weight Dosing Weight: 152.9 kg (06/07/23) Constitutional: no distress, appears stated age, obesity ENT: No thyroid masses Respiratory: Clear to auscultation, no adventitious sounds Cardiovascular: RRR, S1 and S2, no murmurs, JVP 8-10 cm H2O, no pedal edema GI: Soft, nondistended, bowel sounds present Musculoskeletal: no deformity Skin: Warm to touch, dry Neurological: Alert and oriented Lab Results No 36 Hour Lab Data Assessment/Plan Shortness of breath Persistent atrial fibrillation-suppressed, Toprol-XL/Xarelto Cardiomyopathy, LVEF 30-35%, no device GDMT: Entresto, Aldactone, Toprol-XL Severe obesity Hypertension GERD CV: Jignesh Plan: -Dofetilide load, baseline QT interval approximately 450 ms with QRS 107 ms -Daily renal function, electrolytes -Twelve-lead ECG 2 hours after each dose, continuous telemetry monitoring -Full dose Xarelto anticoagulation Problem List/Past Medical History Ongoing Anxiety Atopic dermatitis BMI 45.0-49.9, adult Cardiomyopathy Chewing tobacco nicotine dependence Diabetes mellitus Hypertension Insomnia Morbid obesity Obstructive sleep apnea Paroxysmal atrial fibrillation Prediabetes Right knee pain Screening for colon cancer Screening for ischemic heart disease Historical No qualifying data Procedure/Surgical History Cardioversion: 12/23/22 Echocardiogram: 11/11/22 Elbow Medications Home Medications (13) Active allopurinol 100 mg oral tablet 100 mg = 1 tab(s), Oral, qDay Alphagan P 0.1% ophthalmic solution 1 drop(s), Eyes, both, q8h FLUoxetine 20 mg oral tablet 20 mg = 1 tab(s), Oral, qDay Lasix 40 mg oral tablet See Instructions omeprazole 40 mg oral delayed release capsule 40 mg = 1 cap(s), Oral, BID polyethylene glycol 3350 with electrolytes oral powder for reconstitution See Instructions sacubitril-valsartan 49 mg-51 mg oral tablet 1 tab(s), Oral, BID spironolactone 25 mg oral tablet 25 mg = 1 tab(s), Oral, qDay timolol maleate 0.25% ophthalmic solution 1 drop(s), Eyes, both, BID Toprol-XL 100 mg oral tablet, extended release 100 mg = 1 tab(s), Oral, BID traZODone 100 mg oral tablet 100 mg = 1 tab(s), Oral, qHS Vistaril 25 mg oral capsule 25 mg = 1 cap(s), PRN, Oral, QID Xarelto 20 mg oral tablet 20 mg = 1 tab(s), Oral, qHS Allergies NKA Social History Alcohol Use: Past., 07/11/2022 Nutrition/Health Caffeine intake amount: pop 3 daily., 11/08/2022 Substance Abuse Use: Never., 07/11/2022 Tobacco Nicotine Use: snuff. Type: Oral (Snuff, Chew). Smokeless Tobacco Use: Former smokeless tobacco user, quit more than 30 days ago., 06/07/2023 Nicotine Use: Stopped chewing snuff October 2022. Type: Oral (Snuff, Chew). Ready to change: Yes., 12/13/2022 Nicotine Use: Former smoker, quit more than 30 days ago., 07/11/2022 Family History Cancer: Father. Heart disease: Mother and Grandparent. Stroke: Father. Immunizations pneumococcal 13-valent conjugate vaccine: 0.5 unknown unit (04/12/22) SARS-CoV-2 (COVID-19) mRNA-1273 vaccine: 0 unknown unit (09/11/20) SARS-CoV-2 (COVID-19) mRNA-1273 vaccine: 0 unknown unit (08/14/20) Code Status Code Status - Ordered -- 06/07/23 16:06:00 EST, Full Code, Constant Order Digitally Signed by AMELIA RENAE MD on 06/07/2023 04:29 PM [facility] [id number] Evaluation + Plan noteExtracted from: Title:History and Physical Author:AMELIA RENAE MD Date:06/07/23 Shortness of breath Persistent atrial fibrillation-suppressed, Toprol-XL/Xarelto Cardiomyopathy, LVEF 30-35%, no device GDMT: Entresto, Aldactone, Toprol-XL Severe obesity Hypertension GERD CV: Jignesh Plan: -Dofetilide load, baseline QT interval approximately 450 ms with QRS 107 ms -Daily renal function, electrolytes -Twelve-lead ECG 2 hours after each dose, continuous telemetry monitoring -Full dose Xarelto anticoagulation Addendum by MOY WATTS MD on June 07, 2023 21:35:44 EST I have personally seen, examined, and evaluated the patient on the encounter date. I have reviewed the fellow s documentation and agree with the fellow s findings and plan as documented, unless otherwise stated. Future Appointments Appointment Date:06/20/2023 02:30:00 PM Scheduled Provider:ISADORA CORREA Location:[facility] Appointment Type:PC OV Appointment Date:07/17/2023 03:15:00 PM Scheduled Provider:ZHOU ESPINOSA [facility] Type:[facility] Future Scheduled Tests Laboratory* Basic Metabolic Panel 04/01/23 * A1C Hemoglobin 06/09/23 * Lipid Profile 06/09/23 * Complete Metabolic Panel 06/09/23 [facility] 01-10-2024 NoteSINUS RHYTHM MARKEDLY POSTERIOR QRS AXIS LOW VOLTAGE, PRECORDIAL LEADS BORDERLINE PROLONGED QT INTERVAL Electronic Signature: SADE STRAUSS MD 06/08/2023 09:47:38[facility] 12-08-2023 Hospital Discharge instructions Patient Education 05/05/2023 20:34:20 Fall, Mechanical Mechanical Fall You have had a fall today. It appears that the cause is what is called mechanical. That means that you slipped, tripped, or lost your balance. If your fall had been because of fainting or a seizure, you might need other tests. It is normal to feel sore and tight in your muscles and back the next day, and not just the musclesyou injured at first. Remember, all the parts of your body are connected, so while initially one area hurts, the next day another may hurt. Also, when you injure yourself, it causes inflammation, which then causes the muscles to tighten up and hurt more. After the initial worsening, it should gradually improve over the next few days. Do report more severe pain. Even without a definite head injury, you can still get a concussion from your head suddenly jerkingforward, backward, or sideways when falling. Concussions and even bleeding can still happen, especially if you have had a recent injury or take blood thinner medicine. It is not unusual to have a mild headache and feel tired and even nauseous or dizzy. Home care Rest today and go back to your normal activities when you are feeling back to normal. If you were injured during the fall, follow the advice from your healthcare provider regarding careof your injury. At first, do not try to stretch out the sore spots. If there is a strain, stretching may make it worse. Massage may help relax the muscles without stretching them. You can use an ice pack or cold compress on and off to the sore spots 10 to 20 minutes at a time, as often as you feel comfortable. This may help reduce the inflammation, swelling and pain. If you have any scrapes or abrasions, they usually heal within 10 days. It is important to keep theabrasions clean while they initially start to heal. However, an infection may happen even with proper care, so watch for early signs of infection (such as warmth, redness, or swelling). Medicines Talk to your healthcare provider before taking new medicines, especially if you have other medical problems or are taking other medicines. If you need anything for pain, you can take acetaminophen or ibuprofen, unless you were given a different pain medicine to use. Talk with your healthcare provider before using these medicines if you have chronic liver or kidney disease, or ever had a stomach ulcer or gastrointestinal bleeding, or are taking blood thinner medicines. Be careful if you are given prescription pain medicines, narcotics, or medicine for muscle spasm. They can make you sleepy and dizzy, and can affect your coordination, reflexes, and judgment. Do not drive or do work where you can injure yourself when taking them. Fall prevention Fix, remove, or replace anything that caused your fall. Make your home safe by keeping walkways clear of objects you may trip over. Use nonslip pads under rugs. Don't use small area rugs or throw rugs. Don't walk in poorly lit areas. Don't stand on chairs or wobbly ladders. Use caution when reaching overhead or looking upward. This position can cause a loss of balance. Be sure your shoes fit properly, have nonslip bottoms and are in good condition. Be cautious when going up and down curbs, and walking on uneven sidewalks. If your balance is poor, consider using a cane or walker. Stay as active as you can. Balance, flexibility, strength, and endurance all come from exercise. They all play a role in preventing falls. If you have pets, know where they are before you stand up or walk so you don't trip over them. Limit alcohol intake. Alcohol can cause balance problems and increase the risk of falls. Use night lights. Have your eyes tested to be sure you are seeing well, even if you already wear glasses. Follow-up Follow up with your healthcare provider, or as advised. If X-rays or CT scans were done, you will be notified if there is a change in the reading, especially if it affects treatment. Call 911 Call 911 if any of these happen: Trouble breathing Confused or difficulty arousing Fainting or loss of consciousness Rapid or very slow heart rate Seizure Difficulty with speech or vision, weakness of an arm or leg Difficulty walking or talking, loss of balance, numbness or weakness in one side of your body, or facial droop When to seek medical advice Call your healthcare provider right away if any of these happen: Repeated mechanical falls, or unexplained falls Dizziness Severe headache Blood in vomit, stools (black or red color) [id number] [employer]. [address] [place] [address]67. All rights reserved. This information is not intended as a substitute for professional medical care. Always follow yourhealthcare professional's instructions. 05/05/2023 20:34:13 Blunt Abdominal Trauma Blunt Abdominal Trauma Your abdomen extends from just below your chest to the top of your pelvis. It contains a number of vital organs, including your spleen, liver, pancreas, and stomach. These organs can be injured by the impact from a car accident or fall. Injury from a force that doesn t break your skin to penetrate your body is known as blunt trauma. When to go to the emergency room (ER) Injury to your abdomen can be very serious. For that reason, a person with blunt abdominal trauma should be taken to the ER by trained medical personnel in an ambulance. The effects of blunt trauma often don t appear right away, so it s important to see a healthcare provider after a hard blow to the abdomen, even if you feel OK. What to expect in the ER Your breathing and pulse will be checked. You also will be examined carefully for injuries. Severe trauma may need surgery right away. Otherwise you will be watched closely for a time. You may also need to have one or more tests to find out the extent of your injuries. These may include: Blood or urine tests need a sample of the blood or urine to be taken and checked for problems. X-rays use radiation to take pictures of inside the body. It's mostly used to look for broken bones. CT scan combines X-rays and a computer. This gives a detailed picture that can show problems with organs. These include your kidneys, spleen, liver, and stomach. Ultrasound uses radio waves to make images of the organs in your abdomen. It can also rapidly identify internal bleeding if present. Diagnostic peritoneal lavage (DPL) involves inserting a needle and plastic catheter through the skin into your abdomen to check fluid from your abdomen for signs of blood (internal bleeding).This procedure is rarely, if ever, used anymore. Based on the test results, you may be admitted to the hospital. Or you may have further care in theER. When to call your healthcare provider After treatment, call your healthcare provider right away if you notice any of these symptoms: Increased pain or swelling in your abdomen Nausea or vomiting Call 911 Call 911 or get immediate medical care if any of the following occur: Weakness or fainting Blood in your stool or urine [phone] [employer] [address] [place] [address]. All rights reserved. This information is not intended as a substitute for professional medical care. Always follow yourhealthcare professional's instructions. 05/05/2023 20:33:44 Chest Wall Contusion Chest Contusion A contusion is a bruise to the skin, muscle, or ribs. It may cause pain, tenderness, and swelling. It may turn the skin purple until it heals. Contusions take a few days to a few weeks to heal. Home care Follow these guidelines when caring for yourself at home: Rest. Don t do any heavy lifting or strenuous activity. Don t do any activity that causes pain. Put an ice pack on the injured area. Do this for 20 minutes every 1 to 2 hours the first day. You can make an ice pack by wrapping a plastic bag of ice cubes in a thin towel. Continue to use the ice pack 3 to 4 times a day for the next 2 days. Then use the ice pack as needed to ease pain and swelling. After 1 to 2 days you may put a warm compress on the area. Do this for 10 minutes several times a day. A warm compress is a clean cloth that s damp with warm water. Hold a pillow to the affected area when you cough. This will help ease pain. You may use zkqu-uas-jyqthnn pain medicine such as acetaminophen or ibuprofen to control pain, unless another pain medicine was prescribed. If you have chronic liver or kidney disease, talk with yourhealthcare provider before using these medicines. Also talk with your provider if you ve had a stomach ulcer or gastrointestinal bleeding. Follow-up care Follow up with your healthcare provider, or as advised. When to seek medical advice Call your healthcare provider right away if any of these occur: New abdominal pain or abdominal pain that gets worse Fever of 100.4 F (38 C) or higher, or as directed by your healthcare provider Call 911 Call 911 if any of these occur: Dizziness, weakness, or fainting Shortness of breath, trouble breathing, or breathing fast Chest pain gets worse when you breathe Severe pain that comes on suddenly or lasts more than an hour [id number] [employer]. [address] [place] [address], [place] [address]. All rights reserved. This information is not intended as a substitute for professional medical care. Always follow yourhealthcare professional's instructions. Follow Up Care 05/05/2023 17:11:14 With:ISADORA CORREA Address: [address] [place] [address] [phone] Business (1) When:5-7 days Comments:Follow-up as needed if symptoms or not improving.Limit activity as tolerated.Ice/cold compresses topainful areas.Use Tylenol, Advil or Aleve for pain as needed.Use Pungoteague as prescribed for severe pain as needed.Take 10 deep breaths on the incentive stridor every hour while awake for the next week as advised.Return to the ED if symptoms worsen. [facility] 12-08-2023 Note Discharge Instructions Thank you for allowing [facility] to assist you with your healthcare needs. The following is importantdischarge information regarding your hospital visit. Diagnosis from Today's Visit Contusion of rib on right side Fall Shortness of breath What to Do Next Instructions from Your Care Team No qualifying data available. Post Acute Orders No qualifying data available. You Need to Schedule the Following Appointments Follow Up with ISADORA CORREA When Within 5-7 days Why: Follow-up as needed if symptoms or not improving. Limit activity as tolerated. Ice/cold compresses to painful areas. Use Tylenol, Advil or Aleve for pain as needed. Use Pung[place]ague as prescribed for severe pain as needed. Take 10 deep breaths on the incentive stridor every hour while awake for the next week as advised. Return to the ED if symptoms worsen. Where: [place] [address] [phone] Business (1) Allergies [facility] Medications Please ask your primary doctor or pharmacist before taking any other medication not listed, including over the counter drugs, herbal medications, vitamins and or supplements as they may interact withyour home medications. What How Much When Why Instructions Last Dose New acetaminophen-hydrocodone (Pungoteague 325- 5 mg oral tablet) 1 tab(s) by mouth Every 6 hours as needed for As needed for severe pain Contusion of rib on right side Duration: 3 Days Printed Prescription Unchanged allopurinol (allopurinol 100 mg oral tablet) 1 tab(s) by mouth Once a day Unchanged brimonidine ophthalmic (Alphagan P 0.1% ophthalmic solution) 1 Drops Both eyes Every 8 hours Unchanged FLUoxetine (FLUoxetine 20 mg oral tablet) 1 tab(s) by mouth Once a day Unchanged furosemide (Lasix 40 mg oral tablet) See instructions 1 tab in AM and 0.5 tab in PM Unchanged hydrOXYzine (hydrOXYzine hydrochloride 25 mg oral tablet) 1 tab(s) by mouth Four (4) times a day as needed for as needed for anxiety Duration: 30 Days Unchanged metoprolol (Toprol-XL 100 mg oral tablet, extended release) 1 tab(s) by mouth Two (2) times a day Shortness of breath do not crush or chew Unchanged omeprazole (omeprazole 40 mg oral delayed release capsule) 1 cap by mouth Two (2) times a day Duration: 30 Days before a meal Unchanged polyethylene glycol 3350 with electrolytes (polyethylene glycol 3350 with electrolytes oral powder for reconstitution) See instructions Colon cancer screening As directed by provider at [facility]. Unchanged rivaroxaban (Xarelto 20 mg oral tablet) 1 tab(s) by mouth Daily at bedtime Unchanged sacubitril-valsartan (sacubitril-valsartan 49 mg-51 mg oral tablet) 1 tab(s) by mouth Two (2) times a day Unchanged spironolactone (spironolactone 25 mg oral tablet) 1 tab(s) by mouth Once a day Unchanged timolol ophthalmic (timolol maleate 0.25% ophthalmic solution) 1 Drops Both eyes Two (2) times a day Unchanged traZODone (traZODone 100 mg oral tablet) 1 tab(s) by mouth Daily at bedtime Please take this list to your next doctor s visit. Bring all medications you take, including over the counter medications, herbals and other supplements with you to your doctor s visit. Patients and families are reminded to discard old lists and to update any records with all medication providers or retail pharmacies. Medication Leaflets acetaminophen and hydrocodone (a SEET a MIN oh fen and shelleymurray VITAL done) Lortab Elixir, Verdrocet What is the most important information I should know about acetaminophen and hydrocodone? MISUSE OF OPIOID MEDICINE CAN CAUSE ADDICTION, OVERDOSE, OR . Keep the medication in a place where others cannot get to it. Taking opioid medicine during may cause life-threatening withdrawal symptoms in the . Fatal side effects can occur if you use opioid medicine with alcohol, or with other drugs that cause drowsiness or slow your breathing. Stop taking this medicine and call your doctor right away if you have skin redness or a rash that spreads and causes blistering and peeling. What is acetaminophen and hydrocodone? Acetaminophen and hydrocodone is a combination medicine used to relieve moderate to severe pain. Acetaminophen and hydrocodone contains an opioid medicine, and may be habit-forming. Acetaminophen and hydrocodone may also be used for purposes not listed in this medication guide. What should I discuss with my healthcare provider before taking acetaminophen and hydrocodone? You should not use this medicine if you are allergic to acetaminophen or hydrocodone, or if you have: severe asthma or breathing problems; or a blockage in your stomach or intestines. Tell your doctor if you have ever had: breathing problems, sleep apnea (breathing stops during sleep); liver disease; a drug or alcohol addiction; kidney disease; a head injury or seizures; urination problems; or problems with your thyroid, pancreas, or gallbladder. If you use opioid medicine while you are , your baby could become dependent on the drug. This can cause life-threatening withdrawal symptoms in the baby after it is born. Babies born dependent on opioids may need medical treatment for several weeks. Ask a doctor before using opioid medicine if you are . Tell your doctor if you notice severe drowsiness or slow breathing in the nursing baby. How should I take acetaminophen and hydrocodone? Follow all directions on your prescription label. Never take this medicine in larger amounts, or for longer than prescribed. An overdose can damage your liver or cause . Tell your doctor if you feel an increased urge to use more of this medicine. Never share this medicine with another person, especially someone with a history of drug abuse or addiction. MISUSE CAN CAUSE ADDICTION, OVERDOSE, OR . Keep the medicine in a place where others cannot get to it. Selling or giving away this medicine is against the law. Measure liquid medicine carefully. Use the dosing syringe provided, or use a medicine dose-measuring device (not a kitchen spoon). If you need surgery or medical tests, tell the doctor ahead of time that you are using this medicine. You should not stop using this medicine suddenly. Follow your doctor's instructions about tapering your dose. Store at room temperature away from moisture and heat. Keep track of your medicine. You should be aware if anyone is using it improperly or without a prescription. Do not keep leftover opioid medication. Just one dose can cause in someone using this medicine accidentally or improperly. Ask your pharmacist where to locate a drug take-back disposal program.If there is no take-back program, flush the unused medicine down the toilet. What happens if I miss a dose? Since this medicine is used for pain, you are not likely to miss a dose. Skip any missed dose if itis almost time for your next dose. Do not use two doses at one time. What happens if I overdose? Seek emergency medical attention or call the Poison Help line at . An overdose of this medicine can be fatal, especially in a child or other person using the medicine without a prescription. Overdose symptoms may include nausea, vomiting, sweating, severe drowsiness, pinpoint pupils, slow breathing, or no breathing. Your doctor may recommend you get naloxone (a medicine to reverse an opioid overdose) and keep it with you at all times. A person caring for you can give the naloxone if you stop breathing or don't wake up. Your caregiver must still get emergency medical help and may need to perform CPR (cardiopulmonary resuscitation) on you while waiting for help to arrive. Anyone can buy naloxone from a pharmacy or local health department. Make sure any person caring foryou knows where you keep naloxone and how to use it. What should I avoid while taking acetaminophen and hydrocodone? Avoid driving or operating machinery until you know how this medicine will affect you. Dizziness ordrowsiness can cause falls, accidents, or severe injuries. Do not drink alcohol. Dangerous side effects or could occur. Ask a doctor or pharmacist before using any other medicine that may contain acetaminophen (sometimes abbreviated as APAP). Taking certain medications together can lead to a fatal overdose. What are the possible side effects of acetaminophen and hydrocodone? Get emergency medical help if you have signs of an allergic reaction: hives; difficulty breathing; swelling of your face, lips, tongue, or throat. Opioid medicine can slow or stop your breathing, and may occur. A person caring for you should give naloxone and/or seek emergency medical attention if you have slow breathing with long pauses,blue colored lips, or if you are hard to wake up. In rare cases, acetaminophen may cause a severe skin reaction that can be fatal. This could occur even if you have taken acetaminophen in the past and had no reaction. Stop taking this medicine and call your doctor right away if you have skin redness or a rash that spreads and causes blistering and peeling. Call your doctor at once if you have: noisy breathing, sighing, shallow breathing, breathing that stops; a light-headed feeling, like you might pass out; liver problems--nausea, upper stomach pain, tiredness, loss of appetite, dark urine, jermain-colored stools, jaundice (yellowing of the skin or eyes); low cortisol levels-- nausea, vomiting, loss of appetite, dizziness, worsening tiredness or weakness; o high levels of serotonin in the body--agitation, hallucinations, fever, sweating, shivering, fast heart rate, muscle stiffness, twitching, loss of coordination, nausea, vomiting, diarrhea. Serious breathing problems may be more likely in older adults and in those who are debilitated or have wasting syndrome or chronic breathing disorders. Common side effects include: dizziness, drowsiness, feeling tired; nausea, vomiting, stomach pain; constipation; or headache. This is not a complete list of side effects and others may occur. Call your doctor for medical advice about side effects. You may report side effects to FDA at 7-571-REN-5032. What other drugs will affect acetaminophen and hydrocodone? You may have breathing problems or withdrawal symptoms if you start or stop taking certain other medicines. Tell your doctor if you also use an antibiotic, antifungal medication, heart or blood pressure medication, seizure medication, or medicine to treat HIV or hepatitis C. Opioid medication can interact with many other drugs and cause dangerous side effects or . Be sure your doctor knows if you also use: cold or allergy medicines, bronchodilator asthma/COPD medication, or a diuretic ('water pill'); medicines for motion sickness, irritable bowel syndrome, or overactive bladder; other opioids--opioid pain medicine or prescription cough medicine; a sedative like Valium--diazepam, alprazolam, lorazepam, Xanax, Klonopin, Versed, and others; drugs that make you sleepy or slow your breathing--a sleeping pill, muscle relaxer, medicine to treat mood disorders or mental illness; drugs that affect serotonin levels in your body--a stimulant, or medicine for depression, Parkinson's disease, migraine headaches, serious infections, or nausea and vomiting. This list is not complete. Other drugs may affect acetaminophen and hydrocodone, including prescription and lkia-gej-gbgdzsx medicines, vitamins, and herbal products. Not all possible interactions are listed here. Where can I get more information? Your doctor or pharmacist can provide more information about acetaminophen and hydrocodone. Remember, keep this and all other medicines out of the reach of children, never share your medicines with others, and use this medication only for the indication prescribed. Every effort has been made to ensure that the information provided by [employer]') is accurate, up-to-date, and complete, but no guarantee is made to that effect. Drug information contained herein may be time sensitive. [employer] information has been compiled for use by healthcare practitioners and consumers in the [place] and therefore [employer] does not warrant that uses outside of the [place] are appropriate, unless specifically indicated otherwise. [employer] drug information does not endorse drugs, diagnose patients or recommend therapy. [employer] drug information isan informational resource designed to assist licensed healthcare practitioners in caring for their p atients and/or to serve consumers viewing this service as a supplement to, and not a substitute for, the expertise, skill, knowledge and judgment of healthcare practitioners. The absence of a warningfor a given drug or drug combination in no way should be construed to indicate that the drug or drug combination is safe, effective or appropriate for any given patient. [employer] does not assume any responsibility for any aspect of healthcare administered with the aid of information [employer] provides. The information contained herein is not intended to cover all possible uses, directions, precautions, warnings, drug interactions, allergic reactions, or adverse effects. If you have questions about the drugs you are taking, check with your doctor, nurse or pharmacist. Copyright 1544-5711 [employer]. Version: 19.. Revision Date: 01/16/2023. Education Materials Mechanical Fall You have had a fall today. It appears that the cause is what is called mechanical. That means that you slipped, tripped, or lost your balance. If your fall had been because of fainting or a seizure, you might need other tests. It is normal to feel sore and tight in your muscles and back the next day, and not just the musclesyou injured at first. Remember, all the parts of your body are connected, so while initially one area hurts, the next day another may hurt. Also, when you injure yourself, it causes inflammation, which then causes the muscles to tighten up and hurt more. After the initial worsening, it should gradually improve over the next few days. Do report more severe pain. Even without a definite head injury, you can still get a concussion from your head suddenly jerkingforward, backward, or sideways when falling. Concussions and even bleeding can still happen, especially if you have had a recent injury or take blood thinner medicine. It is not unusual to have a mild headache and feel tired and even nauseous or dizzy. Home care Rest today and go back to your normal activities when you are feeling back to normal. If you were injured during the fall, follow the advice from your healthcare provider regarding careof your injury. At first, do not try to stretch out the sore spots. If there is a strain, stretching may make it worse. Massage may help relax the muscles without stretching them. You can use an ice pack or cold compress on and off to the sore spots 10 to 20 minutes at a time, as often as you feel comfortable. This may help reduce the inflammation, swelling and pain. If you have any scrapes or abrasions, they usually heal within 10 days. It is important to keep theabrasions clean while they initially start to heal. However, an infection may happen even with proper care, so watch for early signs of infection (such as warmth, redness, or swelling). Medicines Talk to your healthcare provider before taking new medicines, especially if you have other medical problems or are taking other medicines. If you need anything for pain, you can take acetaminophen or ibuprofen, unless you were given a different pain medicine to use. Talk with your healthcare provider before using these medicines if you have chronic liver or kidney disease, or ever had a stomach ulcer or gastrointestinal bleeding, or are taking blood thinner medicines. Be careful if you are given prescription pain medicines, narcotics, or medicine for muscle spasm. They can make you sleepy and dizzy, and can affect your coordination, reflexes, and judgment. Do not drive or do work where you can injure yourself when taking them. Fall prevention Fix, remove, or replace anything that caused your fall. Make your home safe by keeping walkways clear of objects you may trip over. Use nonslip pads under rugs. Don't use small area rugs or throw rugs. Don't walk in poorly lit areas. Don't stand on chairs or wobbly ladders. Use caution when reaching overhead or looking upward. This position can cause a loss of balance. Be sure your shoes fit properly, have nonslip bottoms and are in good condition. Be cautious when going up and down curbs, and walking on uneven sidewalks. If your balance is poor, consider using a cane or walker. Stay as active as you can. Balance, flexibility, strength, and endurance all come from exercise. They all play a role in preventing falls. If you have pets, know where they are before you stand up or walk so you don't trip over them. Limit alcohol intake. Alcohol can cause balance problems and increase the risk of falls. Use night lights. Have your eyes tested to be sure you are seeing well, even if you already wear glasses. Follow-up Follow up with your healthcare provider, or as advised. If X-rays or CT scans were done, you will be notified if there is a change in the reading, especially if it affects treatment. Call 911 Call 911 if any of these happen: Trouble breathing Confused or difficulty arousing Fainting or loss of consciousness Rapid or very slow heart rate Seizure Difficulty with speech or vision, weakness of an arm or leg Difficulty walking or talking, loss of balance, numbness or weakness in one side of your body, or facial droop When to seek medical advice Call your healthcare provider right away if any of these happen: Repeated mechanical falls, or unexplained falls Dizziness Severe headache Blood in vomit, stools (black or red color) 4896-2511 [employer]. [address] [place] [id number]. All rights reserved. This information is not intended as a substitute for professional medical care. Always follow yourhealthcare professional's instructions. Blunt Abdominal Trauma Your abdomen extends from just below your chest to the top of your pelvis. It contains a number of vital organs, including your spleen, liver, pancreas, and stomach. These organs can be injured by the impact from a car accident or fall. Injury from a force that doesn t break your skin to penetrate your body is known as blunt trauma. When to go to the emergency room (ER) Injury to your abdomen can be very serious. For that reason, a person with blunt abdominal trauma should be taken to the ER by trained medical personnel in an ambulance. The effects of blunt trauma often don t appear right away, so it s important to see a healthcare provider after a hard blow to the abdomen, even if you feel OK. What to expect in the ER Your breathing and pulse will be checked. You also will be examined carefully for injuries. Severe trauma may need surgery right away. Otherwise you will be watched closely for a time. You may also need to have one or more tests to find out the extent of your injuries. These may include: Blood or urine tests need a sample of the blood or urine to be taken and checked for problems. X-rays use radiation to take pictures of inside the body. It's mostly used to look for broken bones. CT scan combines X-rays and a computer. This gives a detailed picture that can show problems with organs. These include your kidneys, spleen, liver, and stomach. Ultrasound uses radio waves to make images of the organs in your abdomen. It can also rapidly identify internal bleeding if present. Diagnostic peritoneal lavage (DPL) involves inserting a needle and plastic catheter through the skin into your abdomen to check fluid from your abdomen for signs of blood (internal bleeding).This procedure is rarely, if ever, used anymore. Based on the test results, you may be admitted to the hospital. Or you may have further care in theER. When to call your healthcare provider After treatment, call your healthcare provider right away if you notice any of these symptoms: Increased pain or swelling in your abdomen Nausea or vomiting Call 911 Call 911 or get immediate medical care if any of the following occur: Weakness or fainting Blood in your stool or urine 7034-1984 [employer]. [address] [place] [address], [place] [id number]. All rights reserved. This information is not intended as a substitute for professional medical care. Always follow yourhealthcare professional's instructions. Chest Contusion A contusion is a bruise to the skin, muscle, or ribs. It may cause pain, tenderness, and swelling. It may turn the skin purple until it heals. Contusions take a few days to a few weeks to heal. Home care Follow these guidelines when caring for yourself at home: Rest. Don t do any heavy lifting or strenuous activity. Don t do any activity that causes pain. Put an ice pack on the injured area. Do this for 20 minutes every 1 to 2 hours the first day. You can make an ice pack by wrapping a plastic bag of ice cubes in a thin towel. Continue to use the ice pack 3 to 4 times a day for the next 2 days. Then use the ice pack as needed to ease pain and swelling. After 1 to 2 days you may put a warm compress on the area. Do this for 10 minutes several times a day. A warm compress is a clean cloth that s damp with warm water. Hold a pillow to the affected area when you cough. This will help ease pain. You may use arql-sta-asfrjde pain medicine such as acetaminophen or ibuprofen to control pain, unless another pain medicine was prescribed. If you have chronic liver or kidney disease, talk with yourhealthcare provider before using these medicines. Also talk with your provider if you ve had a stomach ulcer or gastrointestinal bleeding. Follow-up care Follow up with your healthcare provider, or as advised. When to seek medical advice Call your healthcare provider right away if any of these occur: New abdominal pain or abdominal pain that gets worse Fever of 100.4 F (38 C) or higher, or as directed by your healthcare provider Call 911 Call 911 if any of these occur: Dizziness, weakness, or fainting Shortness of breath, trouble breathing, or breathing fast Chest pain gets worse when you breathe Severe pain that comes on suddenly or lasts more than an hour [phone] [employer]. [address] [place] [address], [place] [address]. All rights reserved. This information is not intended as a substitute for professional medical care. Always follow yourhealthcare professional's instructions. Additional Information VACCINATE! IT SAVES LIVES! Members of the community who have not yet received the COVID-19 vaccine and would like to receive it can visit one of [facility] vaccine clinics. There are many vaccine clinic locations within the State. For locations and available times, please visit www.[email or web address].[place].gov/. It is important to note that some COVID mobile vaccine clinics are held outdoors and may be canceled in rainy or stormy conditions. To learn more about pediatric vaccinations (ages 5-11), we invite you to visit the [facility] webpage. https://www.[facility].org/pages/8495-Tdjfu-Lmhfyqbvfga-Lgdcyyiolk-Yfggg-Myy stions.htmlTo learn more about the COVID-19 vaccine, we invite you to visit the CDC website for a list of frequently asked questions. https://www.cdc.gov/coronavirus/2019-ncov/vaccines/faq.html [employer] Patient Portal Access Instructions: Stay connected with your healthcare team and access your personal medical information anytime with the [facility] Patient Portal. If you would like a full copy of your medical records please contact the [facility] Medical Records Department Monday through Monday between 8a.m. and 4:30p.m. Please follow the directions below to access the portal: 1.Access the email account you provided upon registration to the hospital.2.Look for an invitation email from [facility].3.Open the email and access the invitation link: Accept Invitation to [facility]4.Fill in the required orr to create your account. Sign into [email or web address] with your username and password that you created in the above steps to stay up to date. You can then view a summary of results, a summary of your visits, and the ability to download your summaries to your computer or send the information securely to a physician. Remember that your healthcare information is confidential, so carefully consider who you will allow to register on the [facility] Patient Portal for access to your information. You can also access the [facility] Patient Portal on the [employer] frida. Simply click on Health Records under [employer] and then click on the [employer] logo. HOW TO SAFELY DISPOSE OF PRESCRIPTION MEDICATIONS Please use one of the following methods to safely dispose of your unused medications. 1.Use a drug disposal kit: the drug disposal pouch allows you to safely discard your old and unuseddrugs. Ask your nurse to give you one when you are discharged.2.Visit a local take-back location: Many local pharmacies and police departments have programs that collect old and unwanted prescriptiondrugs. Call your local pharmacy or go to http://[employer]/7S7Gb4k to find one close to you.3.Make use of household items: Use cat litter or old coffee grounds to dispose medications if other options arenot available. Mix your drugs with these household products, seal them in an airtight container andthrow it into the garbage. Call [facility]: [phone] to be sure your drugs can be disposed of in this way. Some medicines may require a different approach.4.Never flush your medications down the toilet. IF YOU HAVE BEEN PRESCRIBED AN OPIOIDS FOR PAIN If you have been prescribed an opioid (such as hydrocodone, oxycodone or morphine), it is critical to understand the possible side effects and risks of opioid pain medications. Even when taken as directed, opioids can have several side effects including: Tolerance, meaning you might need to take more of a medication for the same pain relief. Nausea, vomiting and/or constipation. Sleepiness, dizziness, dry mouth, confusion, depression or itching. Physical dependence, meaning you have withdrawal symptoms when a medication is stopped ? this can develop within a few days. KNOW YOUR RESPONSIBILITIES It is important to know exactly how much and how often to take the opioid pain medications you are prescribed. Never take opioids in higher amounts or more often than prescribed. Do not combine opioids with alcohol or other drugs that cause drowsiness, such as benzodiazepines, also known as benzos,including diazepam and alprazolam, muscle relaxants or sleep aids. Never sell or share prescriptionopioids. This is illegal. Store opioids in a secure place and out of reach of others (including children, family, friends and visitors). The last page(s) of this document has been signed and retained as a CHART COPY Signatures Patient Education Materials Fall, Mechanical Blunt Abdominal Trauma Chest Wall Contusion Medication Leaflets acetaminophen and hydrocodone My discharge plan and instructions have been reviewed and explained to me and IWARREN RAY J understand my current condition and have read and understand these discharge instructions. I have received awritten copy of the plan/instructions. If I have questions, I am aware that I should contact my doctor. Patient/Dealer Support Technician Signature: Date/Time: Relationship to Patient: Witness Name/Signature: Date/Time: [facility]12-08-2023 Note ORIGINAL EXAMINATION: 2 XRAY VIEWS OF THE RIGHT RIBS 05/05/2023 7:54 pm COMPARISON: None. HISTORY: ORDERING SYSTEM PROVIDED HISTORY: Reason for Exam: pain FINDINGS: No visible rib fracture. IMPRESSION: No visible rib fracture. Interpreted by: Trace Fierro Preliminary Report By: Trace Fierro Electronically signed By Trace Fierro Dictated Date: 05/05/2023 9:07:05 PM Prelim Date: 05/05/2023 9:08:30 PM Sign Date: 05/05/2023 9:08:30 PM Ordering Provider: [facility]12-08-2023 Note ORIGINAL EXAMINATION: ONE XRAY VIEW OF THE CHEST 05/05/2023 7:54 pm COMPARISON: 10/27/2022. HISTORY: ORDERING SYSTEM PROVIDED HISTORY: Reason for Exam: Fall yesterday, right rib pain. SOB FINDINGS: Similar appearance to the cardiomediastinal silhouette. No focal consolidation. No large pleural effusion or pneumothorax. Low lung volumes. Bibasilar streaky airspace opacities/atelectasis. Similar appearing vascular markings. 5 mm right upper lobe nodule. Please see radiograph of the ribs performed same day. IMPRESSION: No focal consolidation. I have personally reviewed the images of this examination and agree with the resident's findings and interpretation. Interpreted by: Trace Fierro Preliminary Report By: Lesia Flannery Electronically signed By Trace Fierro Dictated Date: 05/05/2023 9:06:00 PM Prelim Date: 05/05/2023 9:09:28 PM Sign Date: 05/05/2023 9:17:04 PM [facility] * Exam Date Time Procedure Performing Provider Status 04/03/23 9:43 AM Echocardiogram, Adult ([facility]) Auth (Verified) [facility] 07-28-2023 Hospital Discharge instructions Patient Education 12/23/2022 07:43:04 3- Cardioversion (02/2018)(CUSTOM) CARDIOVERSION Discharge instructions ACTIVITY/SAFETY Please refrain from the following activities for 24 hours: Do not drive a car or operate heavy equipment. Do not consume alcohol for 24 hours. Do not return to work for 24 hours. Postpone signing any important papers or making important decisions. COMFORT Call your primary doctor if you have any redness, tenderness, warmth, discharge or swelling at yourIV site. Your chest or back may get red and/or develop a burning sensation. Apply fragrance-free Aloe Vera lotion. Take Tylenol as needed for pain. DIET When you return home, resume your regular diet unless otherwise directed. Some of the sedatives, anesthetic medications you received today may make you nauseated. If vomiting persists, call your doctor. Restart your usual medications unless otherwise instructed by your doctor. If you have any questions, please call your doctor at the number listed on your follow up instructions. Document Released: 05/15/2006 Document Revised: 05/01/2013 Document Reviewed: 05/16/2014 ExitCare Patient Information 2015 [employer], [place]. This information is not intended to replace advicegiven to you by your health care provider. Make sure you discuss any questions you have with your health care provider. 12/23/2022 07:42:51 Monitored Anesthesia Care, Care After Monitored Anesthesia Care, Care After These instructions provide you with information about caring for yourself after your procedure. Your health care provider may also give you more specific instructions. Your treatment has been plannedaccording to current medical practices, but problems sometimes occur. Call your health care provider if you have any problems or questions after your procedure. What can I expect after the procedure? After your procedure, you may: Feel sleepy for several hours. Feel clumsy and have poor balance for several hours. Feel forgetful about what happened after the procedure. Have poor judgment for several hours. Feel nauseous or vomit. Have a sore throat if you had a breathing tube during the procedure. Follow these instructions at home: For at least 24 hours after the procedure: Have a responsible adult stay with you. It is important to have someone help care for you until youare awake and alert. Rest as needed. Do not: ?Participate in activities in which you could fall or become injured. ?Drive. ?Use heavy machinery. ?Drink alcohol. ?Take sleeping pills or medicines that cause drowsiness. ?Make important decisions or sign legal documents. ?Take care of children on your own. Eating and drinking Follow the diet that is recommended by your health care provider. If you vomit, drink water, juice, or soup when you can drink without vomiting. Make sure you have little or no nausea before eating solid foods. General instructions Take kyhb-coq-ddghtai and prescription medicines only as told by your health care provider. If you have sleep apnea, surgery and certain medicines can increase your risk for breathing problems. Follow instructions from your health care provider about wearing your sleep device: ?Anytime you are sleeping, including during daytime naps. ?While taking prescription pain medicines, sleeping medicines, or medicines that make you drowsy. If you smoke, do not smoke without supervision. Keep all follow-up visits as told by your health care provider. This is important. Contact a health care provider if: You keep feeling nauseous or you keep vomiting. You feel light-headed. You develop a rash. You have a fever. Get help right away if: You have trouble breathing. Summary For several hours after your procedure, you may feel sleepy and have poor judgment. Have a responsible adult stay with you for at least 24 hours or until you are awake and alert. This information is not intended to replace advice given to you by your health care provider. Make sure you discuss any questions you have with your health care provider. Document Released: 09/04/2016 Document Revised: 08/13/2018 Document Reviewed: 09/04/2016 [employer] Patient Education 2020 [employer] 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 [place] [address]- [phone] When: Unknown Comments:Follow-up as scheduled [facility] 07-28-2023 Note Discharge Instructions Thank you for allowing [facility] to assist you with your healthcare needs. The following is importantdischarge information regarding your hospital visit. Your Care Team ISADORA CORREA Your Diagnosis AF (atrial fibrillation) What to do next Scheduled Follow-Up Appointments Appointment Type When With Where Contact InformationPC OV 02/07/2023 02:30 PM EDT ISADORA CORREA [facility] Follow Up Appointments Follow Up with ZHOU ESPINOSA When Why: Follow-up as scheduled Where: [address] [facility] [address] [facility] [place] [address]- [phone] Allergies NKA Medications Please ask your primary doctor or pharmacist before taking any other medication not listed, including over the counter drugs, herbal medications, vitamins and or supplements as they may interact withyour home medications. What How Much When Instructions Last Dose New losartan (losartan 100 mg oral tablet) 1 tab(s) by mouth Once a day Refills: 6 Pickup at [facility] #[id number] Changed metoprolol (Toprol-XL 50 mg oral tablet, extended release) 1 tab(s) by mouth Two (2) times a day Pickup at [facility] #[id number] Unchanged allopurinol (allopurinol 100 mg oral tablet) 1 tab(s) by mouth Once a day Duration: 90 Days Unchanged brimonidine ophthalmic (Alphagan P 0.1% ophthalmic solution) 1 Drops Both eyes Every 8 hours Unchanged FLUoxetine (FLUoxetine 20 mg oral tablet) 1 tab(s) by mouth Once a day Unchanged furosemide (Lasix 40 mg oral tablet) See instructions 1 tab in AM and 0.5 tab in PM Unchanged metFORMIN (MetFORMIN (Eqv-Fortamet) 500 mg oral tablet, EXTENDED RELEASE) 1 tab(s) by mouth Once a day Unchanged nicotine (NicoDerm CQ 21 mg/ 24 hr transdermal patch) 1 patch(es) Transdermal Every day Duration: 30 Days Unchanged omeprazole (omeprazole 40 mg oral delayed release capsule) 1 cap by mouth Once a day before a meal Unchanged rivaroxaban (Xarelto 20 mg oral tablet) 1 tab(s) by mouth Daily at bedtime Duration: 90 Days Unchanged spironolactone (spironolactone 25 mg oral tablet) 1 tab(s) by mouth Once a day Unchanged timolol ophthalmic (timolol maleate 0.25% ophthalmic solution) 1 Drops Both eyes Two (2) times a day Unchanged traZODone (traZODone 100 mg oral tablet) 1 tab(s) by mouth Daily at bedtime Duration: 30 Days Unchanged triamcinolone topical (triamcinolone 0.5% topical cream) 1 application Topical Two (2) times a day Duration: 14 Days Pharmacy Information [facility] #[id number]: [address], [place] [phone] What How Much When Comments Stop Taking lisinopril 40 Milligram by mouth Once a day Please take this list to your next doctor s visit. Bring all medications you take, including over the counter medications, herbals and other supplements with you to your doctor s visit. Patients and families are reminded to discard old lists and to update any records with all medication providers or retail pharmacies. Education Materials CARDIOVERSION Discharge instructions ACTIVITY/SAFETY Please refrain from the following activities for 24 hours: Do not drive a car or operate heavy equipment. Do not consume alcohol for 24 hours. Do not return to work for 24 hours. Postpone signing any important papers or making important decisions. COMFORT Call your primary doctor if you have any redness, tenderness, warmth, discharge or swelling at yourIV site. Your chest or back may get red and/or develop a burning sensation. Apply fragrance-free Aloe Vera lotion. Take Tylenol as needed for pain. DIET When you return home, resume your regular diet unless otherwise directed. Some of the sedatives, anesthetic medications you received today may make you nauseated. If vomiting persists, call your doctor. Restart your usual medications unless otherwise instructed by your doctor. If you have any questions, please call your doctor at the number listed on your follow up instructions. Document Released: 05/15/2006 Document Revised: 05/01/2013 Document Reviewed: 05/16/2014 ExitCare Patient Information 2015 [employer]. This information is not intended to replace advicegiven to you by your health care provider. Make sure you discuss any questions you have with your health care provider. Monitored Anesthesia Care, Care After These instructions provide you with information about caring for yourself after your procedure. Your health care provider may also give you more specific instructions. Your treatment has been plannedaccording to current medical practices, but problems sometimes occur. Call your health care provider if you have any problems or questions after your procedure. What can I expect after the procedure? After your procedure, you may: Feel sleepy for several hours. Feel clumsy and have poor balance for several hours. Feel forgetful about what happened after the procedure. Have poor judgment for several hours. Feel nauseous or vomit. Have a sore throat if you had a breathing tube during the procedure. Follow these instructions at home: For at least 24 hours after the procedure: Have a responsible adult stay with you. It is important to have someone help care for you until youare awake and alert. Rest as needed. Do not: ? Participate in activities in which you could fall or become injured. ? Drive. ? Use heavy machinery. ? Drink alcohol. ? Take sleeping pills or medicines that cause drowsiness. ? Make important decisions or sign legal documents. ? Take care of children on your own. Eating and drinking Follow the diet that is recommended by your health care provider. If you vomit, drink water, juice, or soup when you can drink without vomiting. Make sure you have little or no nausea before eating solid foods. General instructions Take qmpx-nrv-lutnxgp and prescription medicines only as told by your health care provider. If you have sleep apnea, surgery and certain medicines can increase your risk for breathing problems. Follow instructions from your health care provider about wearing your sleep device: ? Anytime you are sleeping, including during daytime naps. ? While taking prescription pain medicines, sleeping medicines, or medicines that make you drowsy. If you smoke, do not smoke without supervision. Keep all follow-up visits as told by your health care provider. This is important. Contact a health care provider if: You keep feeling nauseous or you keep vomiting. You feel light-headed. You develop a rash. You have a fever. Get help right away if: You have trouble breathing. Summary For several hours after your procedure, you may feel sleepy and have poor judgment. Have a responsible adult stay with you for at least 24 hours or until you are awake and alert. This information is not intended to replace advice given to you by your health care provider. Make sure you discuss any questions you have with your health care provider. Document Released: 09/04/2016 Document Revised: 08/13/2018 Document Reviewed: 09/04/2016 Elsevier Patient Education 2020 [employer]. Additional Information VACCINATE! IT SAVES LIVES! Members of the community who have not yet received the COVID-19 vaccine and would like to receive it can visit one of [facility] vaccine clinics. There are many vaccine clinic locations within the [facility]. For locations and available times, please visit [email or web address]/. It is important to note that some COVID mobile vaccine clinics are held outdoors and may be canceled in rainy or stormy conditions. To learn more about pediatric vaccinations (ages 5-11), we invite you to visit the [facility] webpage. https://www.[employer].org/pages/3787-Hbngg-Ebcsjfllwrm-Bnxvmitjkg-Qmbin-Kcu stions.htmlTo learn more about the COVID-19 vaccine, we invite you to visit the CDC website for a list of frequently asked questions.https://www.cdc.gov/coronavirus/2019-ncov/vaccines/faq.html [employer] Patient Portal Access Instructions: Stay connected with your healthcare team and access your personal medical information anytime with the [employer] Patient Portal. Please follow the directions below to create your [employer] account: 1.Access the email account you provided upon registration to the hospital/physician office.2.Look for an invitation email from [facility].3.Open the email and access the invitation link: AcceptInvitation to [employer].4.Fill in the required orr to create your account. To access your account, visit [employer]. Click the blue button labeled Access Patient Portal and then log in with the username and password that you created in the steps above. You will be able to view your test results, lab results, a summary of your visits, upcoming appointments and more. There is also a convenient messaging option where you can send secure messages to your p rovider. In addition, you will have the ability to download any documents or summaries to your computer and/or send the information securely to a physician. Remember that your healthcare information is confidential, so carefully consider who you will allowto register on the [employer] [facility] Patient Portal for access to your information. You can also access the [facility] on the [employer] [facility]ida. Simply click on Patient Portal and then log into your account. If you would like to receive a full copy of your medical records, please contact the [facility] Medical Records Department by calling [phone], Monday through Monday between 8 a.m. and 4:30 p.m. HOW TO SAFELY DISPOSE OF PRESCRIPTION MEDICATIONS Please use one of the following methods to safely dispose of your unused medications. 1.Use a drug disposal kit: the drug disposal pouch allows you to safely discard your old and unuseddrugs. Ask your nurse to give you one when you are discharged.2.Visit a local take-back location: Many local pharmacies and police departments have programs that collect old and unwanted prescriptiondrugs. Call your local pharmacy or go to http://[employer]/7W2Bu0s to find one close to you.3.Make use of household items: Use cat litter or old coffee grounds to dispose medications if other options arenot available. Mix your drugs with these household products, seal them in an airtight container andthrow it into the garbage. Call [facility]: [phone] to be sure your drugs can be disposed of in this way. Some medicines may require a different approach.4.Never flush your medications down the toilet. IF YOU HAVE BEEN PRESCRIBED AN OPIOID FOR PAIN If you have been prescribed an opioid (such as hydrocodone, oxycodone or morphine), it is critical to understand the possible side effects and risks of opioid pain medications. Even when taken as directed, opioids can have several side effects including: Tolerance, meaning you might need to take more of a medication for the same pain relief. Nausea, vomiting and/or constipation. Sleepiness, dizziness, dry mouth, confusion, depression or itching. Physical dependence, meaning you have withdrawal symptoms when a medication is stopped, can develop within a few days. KNOW YOUR RESPONSIBILITIES It is important to know exactly how much and how often to take the opioid pain medications you are prescribed. Never take opioids in higher amounts or more often than prescribed. Do not combine opioids with alcohol or other drugs that cause drowsiness, such as benzodiazepines, also known as benzos, including diazepam and alprazolam, muscle relaxants or sleep aids. Never sell or share prescription opioids. This is illegal. Store opioids in a secure place and out of reach of others (including children, family, friends and visitors). The last page of this document has been signed and retained as a CHART COPY. Signatures Patient Education Materials 3- Cardioversion (02/2018)(CUSTOM) Monitored Anesthesia Care, Care After Medication Leaflets My discharge plan and instructions have been reviewed and explained to me and IWARREN RAY J understand my current condition and have read and understand these discharge instructions. I have received awritten copy of the plan/instructions. If I have questions, I am aware that I should contact my doctor. Patient/Dealer Support Technician Signature: Date/Time: Relationship to Patient: Witness Name/Signature: Date/Time: [facility]07-28-2023 Anesthesiology Consult note Patient: SOCORRO KELLEY Age: 52 years Sex: Male : 1970 Associated Diagnoses: None Author: BRAULIO WRIGHT APRN-TOPPIECE CUTTER Assessment Postanesthesia assessment Vitals: Vital signs from flowsheet : Vital Signs 12/23/2022 7:15 EDT Heart Rate Monitored 91 bpm bpm Respiratory Rate - Anes 18 br/min br/min 12/23/2022 7:12 EDT Systolic Blood Pressure Non-Invasive 123 mmHg mmHg Diastolic Blood Pressure Non-Invasive 90 mmHg mmHg 12/23/2022 6:34 EDT Temperature Temporal Artery 35.3 DegC Peripheral Pulse Rate 85 bpm Respiratory Rate 20 br/min Systolic Blood Pressure Non-Invasive 103 mmHg Diastolic Blood Pressure Non-Invasive 76 mmHg , Measurements from flowsheet . Mental status: alert & oriented x 4. Respiratory function: respirations are non-labored. Respiratory support: none. CV function: Normal rate. Cardiovascular support: none. Pain. Nausea status: denies nausea. Postoperative hydration status: within normal limits. Digitally Signed by BRAULIO WRIGHT on 12/23/2022 07:23 AM [facility]07-28-2023 Anesthesiology Consult note Patient: SOCORRO KELLEY Age: 52 years Sex: Male : 1970 Associated Diagnoses: None Author: BRAULIO WRIGHT Preoperative Information Time of last food or liquid consumption: 12/23/2022 00:00:00 Anesthesia history Patient's history: negative. Family's history: negative. Health Status Allergies: Allergic Reactions (Selected) NKA, Allergies (1) ActiveReaction NKANone Documented Current medications: (Selected) Inpatient Medications Ordered Sodium Chloride 0.9% intravenous solution 1,000 mL: 20 mL/hr, Intravenous Prescriptions Prescribed FLUoxetine 20 mg oral tablet: 20 mg, 1 tab(s), Oral, qDay, 30 tab(s), 3 Refill(s) Lasix 40 mg oral tablet: See Instructions, 1 tab in AM and 0.5 tab in PM, 135 tab(s), 0 Refill(s) Metoprolol Tartrate 50 mg oral tablet: 50 mg, 1 tab(s), Oral, BID, 60 tab(s), 3 Refill(s) NicoDerm CQ 21 mg/24 hr transdermal patch: 1 patch(es), Transdermal, Daily, for 30 day(s), 30 EA, 5Refill(s) Xarelto 20 mg oral tablet: 20 mg, 1 tab(s), Oral, qHS, for 90 day(s), 90 tab(s), 0 Refill(s) allopurinol 100 mg oral tablet: 100 mg, 1 tab(s), Oral, qDay, for 90 day(s), 90 tab(s), 0 Refill(s) spironolactone 25 mg oral tablet: 25 mg, 1 tab(s), Oral, qDay, 60 tab(s), 0 Refill(s) traZODone 100 mg oral tablet: 100 mg, 1 tab(s), Oral, qHS, for 30 day(s), 30 tab(s), 3 Refill(s) triamcinolone 0.5% topical cream: 1 frida, Topical, BID, for 14 day(s), 30 gram(s), 0 Refill(s) Documented Medications Documented Alphagan P 0.1% ophthalmic solution: 1 drop(s), Eyes, both, q8h, 15 mL, 0 Refill(s) MetFORMIN (Eqv-Fortamet) 500 mg oral tablet, EXTENDED RELEASE: 500 mg, 1 tab(s), Oral, qDay, 30 tab(s), 0 Refill(s) lisinopril: 40 mg, Oral, qDay omeprazole 40 mg oral delayed release capsule: 40 mg, 1 cap(s), Oral, qDay, before a meal, 30 cap(s), 0 Refill(s) timolol maleate 0.25% ophthalmic solution: 1 drop(s), Eyes, both, BID, 5 mL, 0 Refill(s), Medications (1) Active Scheduled: (0) Continuous: (1) NS (0.9% nacl) 1,000 mL 1,000 mL, Intravenous, 20 mL/hr PRN: (0) Problem list: Medical Anxiety / SNOMED CT 88478740 / Confirmed Atopic dermatitis / SNOMED CT 46483503 / Confirmed BMI 45.0-49.9, adult / SNOMED CT 9677461976 / Confirmed Diabetes mellitus / SNOMED CT 396405628 / Confirmed Hypertension / SNOMED CT 7678153725 / Confirmed Insomnia / SNOMED CT 850780047 / Confirmed Morbid obesity / SNOMED CT 860784711 / Confirmed Chewing tobacco nicotine dependence / SNOMED CT 03688890 / Confirmed Obstructive sleep apnea / SNOMED CT 201944888 / Confirmed Screening for ischemic heart disease / SNOMED CT 489337309 / Confirmed Persistent atrial fibrillation / SNOMED CT 9801578656 / Confirmed Prediabetes / SNOMED CT 7574243136 / Confirmed, Active Problems (16) Anxiety Atopic dermatitis Atrial fibrillation BMI 45.0-49.9, adult Chewing tobacco nicotine dependence Diabetes mellitus GERD (gastroesophageal reflux disease) Gout HTN (hypertension) Hypertension Insomnia Morbid obesity Obstructive sleep apnea Persistent atrial fibrillation Prediabetes Screening for ischemic heart disease Histories Past Medical History: No active or resolved past medical history items have been selected or recorded. Family History: History is unknown. Procedure history: Elbow ([id number]). Comments: 07/11/2022 8:26 SHAHEEN Nunez - right Social History Social & Psychosocial Habits Alcohol 12/23/2022 Use: Past Substance Abuse 12/23/2022 Use: Never Tobacco 12/23/2022 Tobacco Use: Former smoker, quit more 12/23/2022 Tobacco Use: snuff Type: Oral (Snuff, Chew) 12/23/2022 Tobacco Use: Stopped chewing snuff October 2022 Type: Oral (Snuff, Chew) Ready to change: Yes Comment: Stopped chewing snuff October 2022 - 12/06/2022 14:30 - Ella Isaac MA (ABR-OE); using NicoDerm patch - 12/13/2022 14:44 - Sue Mcgregor LIBRARY SUPERVISOR Nutrition/Health 12/23/2022 Caffeine intake amount: pop 3 daily . Physical Examination Vital Signs 12/23/2022 6:34 EDT Temperature Temporal Artery 35.3 DegC Peripheral Pulse Rate 85 bpm Respiratory Rate 20 br/min Systolic Blood Pressure Non-Invasive 103 mmHg Diastolic Blood Pressure Non-Invasive 76 mmHg Vital Signs(last 24 hrs) Last Charted Resp Rate 20 br/min (DEC 23 06:34) SLV102 mmHg (DEC 23 06:34) DBP76 mmHg (DEC 23 06:34) Measurements from flowsheet : Measurements 12/23/2022 6:37 EDT Height 175.3 cm Oil Trough Body Weight 70.74 kg 12/23/2022 6:34 EDT Height 175.3 cm Admission Weight 144 kg Oil Trough Body Weight 70.74 kg Admission Body Mass Index 46.86 m2 Pain assessment: Pain Assessment 12/23/2022 6:34 EDT Primary Pain Intensity 0 Pain Scale Type 0-10 Pain scale . General: Alert and oriented. Airway: Normal temporomandibular joint mobility, Normal mouth, Normal neck range of motion. Mallampati classification: III (soft palate, base of uvula visible). Dentition Evaluation: Denies loose/chipped teeth. Respiratory: Respirations are non-labored. Neurologic: Alert, Oriented. Review / Management Results review: Labs (Last four charted values) Na 141(DEC 23) K 3.7(DEC 23) CO2 H 35(DEC 23) Cl 102(DEC 23) Cr 0.94(DEC 23) BUN 12(DEC 23) Glucose H 145(DEC 23) Ca 9.2(DEC 23) , Lab results 12/23/2022 7:20 EDT SN - GCD - Post-operative Diagnosis SINUS RHYTHM (Modified) 12/23/2022 7:15 EDT SN - Proc - Anesthesia Type MAC SN - Proc - EBL 0 mL SN - Proc - Actual Procedure DIRECT CURRENT CARDIOVERSION 12/23/2022 7:14 EDT SN - GCD - ASA Class 3 SN - GCD - Case Level Flat-Fee 12/23/2022 6:56 EDT SN - CAt - Case Attendee SN - CAt - Case Attendee SN - CAt - Case Attendee SN - CAt - Case Attendee SN - CAt - Case Attendee SN - CAt - Case Attendee SN - CAt - Role Performed Primary Surgeon SN - CAt - Role Performed Dry Folder Cloth 1 SN - CAt - Role Performed TOPPIECE CUTTER 12/23/2022 6:49 EDT Wrist Left 12/23/2022 20 gauge Peripheral IV Activity: Insert new site Peripheral IV Dressing Condition: Clean, Dry, Intact Peripheral IV Dressing Activity: Applied Peripheral IV Line Status/Patency: Flushes easily Peripheral IV Site Condition: No complications Peripheral IV Equipment: Extension set Peripheral IV Number of Attempts: 3 12/23/2022 6:44 EDT Glucose Level 145 mg/dL HI Sodium Level 141 mmol/L Potassium Level 3.7 mmol/L Chloride 102 mmol/L CO2 35 mmol/L HI Electrolyte Balance 4.0 mEq/L BUN 12 mg/dL Creatinine Lvl (s) 0.94 mg/dL BUN/Creatinine Ratio 13 ratio Calcium Lvl 9.2 mg/dL GFR Non- 85 ml/min/1.73sqm NA GFR 103 ml/min/1.73sqm NA Creatinine Clearance Calc 93.02 mL/min 12/23/2022 6:37 EDT Designated Person #1 We May Share YAW OSPINA [phone] Designated Person #1 Relationship Sibling Height 175.3 cm Oil Trough Body Weight 70.74 kg Status N/A Sensory Deficits None Infectious Disease Symptoms Patient states no symptoms Infectious Disease Recent Exposure No Alcohol and Drug Use No Employee of Institutional Living No Health Care Employee No History of Exposure to TB No History of Positive Chest X-Ray for TB No History of Positive TB Skin Test No Homeless No Known Immunosuppression No Recent Immigrant No Resident of Institutional Living No Bloody Sputum No Fatigue No Fever No Loss of Appetite No Night Sweats No Persistent Cough > 3 Weeks No Weight Loss No Barriers to Learning None evident Teaching Method Explanation Preferred Spoken Language Barbadian Preferred Written Language Barbadian Information Given by Patient Patient's Current Physicians Patient's Current Physicians Discharge To, Anticipated Home independently Prev Test Positive/Diagnosis w/COVID-19 No Current Quarantine/Isolated any Illness No Any Contact with Sick Animals/Birds No Traveled Anywhere in Last 30 Days No N/A Personal Devices, Patient Valuables None Admission Note-Nursing Procedure/Therapy Intake 12/23/2022 6:34 EDT Height 175.3 cm Admission Weight 144 kg Oil Trough Body Weight 70.74 kg Admission Body Mass Index 46.86 m2 Temperature Temporal Artery 35.3 DegC Peripheral Pulse Rate 85 bpm Respiratory Rate 20 br/min Systolic Blood Pressure Non-Invasive 103 mmHg Diastolic Blood Pressure Non-Invasive 76 mmHg Primary Pain Intensity 0 Pain Scale Type 0-10 Pain scale Heart Rhythm Irregular Respirations Unlabored Respiratory Pattern Regular Oxygen Saturation 95 % Abdomen Description Symmetric Skin Temperature Warm Skin Description Normal for ethnicity Skin Integrity Not intact Level of Consciousness Alert Strength All Extremities Strong Tone All Extremities Normal Sensation All Extremities Intact Affect/Behavior Appropriate, Calm, Cooperative Orientation Oriented x 4 Activity Status ADL Awake, Resting Standard Safety ID band on, Call device within reach, Bed in low position, Wheels locked, Upper/Half-Length side-rails up, Phone within reach, personal items within reach, Visitor at bedside, Safety level maintained 12/23/2022 6:31 EDT Allergies Yes Consent Form Signed Yes Patient Dressed In Hospital gown History & Physical Update On Chart Yes History & Physical On Chart Yes NPO Status Maintained Allergy Band on and Verified Yes Patient ID Band on and Verified Yes Implants Verified Yes Pacemaker/AICD Verified Yes Site Verified by Patient/Family Yes Last Fluid Intake 12/23/2022 5:00 Last Food Intake 12/22/2022 23:00 Last Void 12/23/2022 6:00 12/23/2022 6:04 EDT Electrocardiogram [AOH] - CV Ordered (In Progress) . Assessment and Plan [place] [employer] Anesthesiologists (ASA) physical status classification: Class III. Anesthetic Preoperative Plan Anesthetic technique: MAC. Informed consent: signed by patient. Digitally Signed by BRAULIO WRIGHT on 12/23/2022 07:21 AM [facility]06-01-2023 Hospital Discharge instructions Patient Education 10/27/2022 06:39:29 Chest Pain, Uncertain Cause Uncertain Causes of Chest Pain Chest pain can happen for a number of reasons. Sometimes the cause can't be determined. If your condition does not seem serious, and your pain does not appear to be coming from your heart, your healthcare provider may recommend watching it closely. Sometimes the signs of a serious problem take moretime to appear. Many problems not related to your heart can cause chest pain. These include: Musculoskeletal. Costochondritis is an inflammation of the tissues around the ribs that can occur from trauma or overuse injuries, or a strain of the muscles of the chest wall Respiratory. Pneumonia, collapsed lung (pneumothorax), or inflammation of the lining of the chest and lungs (pleurisy) Gastrointestinal. Esophageal reflux, heartburn, ulcers, or gallbladder disease Anxiety and panic disorders Nerve compression and inflammation Rare miscellaneous problems such as aortic aneurysm (a swelling of the large artery coming out of the heart) or pulmonary embolism (a blood clot in the lungs) Home care After your visit, follow these recommendations: Rest today and avoid strenuous activity. Take any prescribed medicine as directed. Be aware of any recurrent chest pain and notice any changes Follow-up care Follow up with your healthcare provider if you do not start to feel better within 24 hours, or as advised. Call 911 Call 911 if any of these occur: A change in the type of pain: if it feels different, becomes more severe, lasts longer, or begins to spread into your shoulder, arm, neck, jaw or back Shortness of breath or increased pain with breathing Weakness, dizziness, or fainting Rapid heart beat Crushing sensation in your chest When to seek medical advice Call your healthcare provider right away if any of the following occur: Cough with dark colored sputum (phlegm) or blood Fever of 100.4 F (38 C) or higher, or as directed by your healthcare provider Swelling, pain or redness in one leg [phone] [employer]. [address] [place] [id number]. All rights reserved. This information is not intended as a substitute for professional medical care. Always follow yourhealthcare professional's instructions. 10/27/2022 06:39:29 Hypokalemia Hypokalemia Hypokalemia means a low level of potassium in the blood. This most often occurs in people who take water pills (diuretics). It can also occur because of severe vomiting or diarrhea. You may also haveit if you take laxatives for long periods of time. It sometimes happens if you have low magnesium (hypomagnesemia). If you have this, your healthcare provider will treat the low magnesium first. A mild case of hypokalemia usually causes no symptoms. It is only found with blood testing. More severe potassium loss causes overall weakness, muscle or abdominal cramps, rapid or irregular heartbeats (heart palpitations), low blood pressure, and muscle weakness. Home care Take any potassium supplements as prescribed. Eat foods rich in potassium. The highest amount is found in avocado, baked potatoes, spinach, cantaloupe, cod, halibut, salmon, and scallops. White, red, or bradshaw beans are also very good sources. A modest amount of potassium is found in orange juice, bananas, carrots, and tomato juice. If you take certain types of diuretics, you will also need to take potassium supplements. If you take a diuretic, discuss potassium supplements with your doctor. Follow-up care Follow up with your healthcare provider for a repeat blood test within the next week, or as advisedby our staff. When to seek medical advice Call your healthcare provider right away if any of the following occur: Increased weakness, fatigue, or muscle cramps Dizziness Call 911 Call 911 if any of the following occur: Irregular heartbeat, extra beats, or very fast heart rate Loss of consciousness [phone] [employer]. [address] [place] [address], [place] [address]. All rights reserved. This information is not intended as a substitute for professional medical care. Always follow yourhealthcare professional's instructions. Follow Up Care 10/27/2022 05:02:35 With:ISADORA CORREA Address: [address] [facility] [place] [address]- [phone] Business (1) When:2-4 days Comments:Follow close with your doctor, continue medications, return if any worsening or concerning symptoms. [facility] 06-01-2023 Note Discharge Instructions Thank you for allowing [facility] to assist you with your healthcare needs. The following is importantdischarge information regarding your hospital visit. Diagnosis from Today's Visit Chest pain Foot pain Hypokalemia Medical screening exam What to Do Next Instructions from Your Care Team No qualifying data available. Post Acute Orders No qualifying data available. You Need to Schedule the Following Appointments Follow Up with ISADORA CORREA When Within 2-4 days Why: Follow close with your doctor, continue medications, return if any worsening or concerning symptoms. Where: [address] [facility] [place] [address]- [phone] Business (1) Allergies NKA Medications Please ask your primary doctor or pharmacist before taking any other medication not listed, including over the counter drugs, herbal medications, vitamins and or supplements as they may interact withur home medications. What How Much When Instructions Last Dose Unchanged allopurinol 500 Milligram by mouth Once a day Unchanged amLODIPine (Norvasc 5 mg oral tablet) 1 tab(s) by mouth Once a day Unchanged brimonidine ophthalmic (Alphagan P 0.1% ophthalmic solution) 1 Drops Both eyes Every 8 hours Unchanged furosemide (Lasix 20 mg oral tablet) 1 tab(s) by mouth Two (2) times a day Unchanged hydroCHLOROthiazide 50 Milligram by mouth Once a day Unchanged lisinopril 40 Milligram by mouth Once a day Unchanged metFORMIN (MetFORMIN (Eqv-Fortamet) 500 mg oral tablet, EXTENDED RELEASE) 1 tab(s) by mouth Once a day Unchanged metoprolol (Metoprolol Tartrate 25 mg oral tablet) 1 tab(s) by mouth Two (2) times a day Unchanged naproxen (naproxen 250 mg oral tablet) 1 tab(s) by mouth Two (2) times a day Unchanged omeprazole (omeprazole 40 mg oral delayed release capsule) 1 cap by mouth Once a day before a meal Unchanged potassium chloride (Potassium Chloride (Eqv-K-Tab) 10 mEq oral tablet, extended release) 1 tab(s) by mouth Once a day Duration: 30 Days Unchanged rivaroxaban (Xarelto 20 mg oral tablet) 1 tab(s) by mouth Daily at bedtime Unchanged timolol ophthalmic (timolol maleate 0.25% ophthalmic solution) 1 Drops Both eyes Two (2) times a day Unchanged traZODone (traZODone 50 mg oral tablet) 1 tab(s) by mouth Daily at bedtime Duration: 7 Days Please take this list to your next doctor s visit. Bring all medications you take, including over the counter medications, herbals and other supplements with you to your doctor s visit. Patients and families are reminded to discard old lists and to update any records with all medication providers or retail pharmacies. Education Materials Uncertain Causes of Chest Pain Chest pain can happen for a number of reasons. Sometimes the cause can't be determined. If your condition does not seem serious, and your pain does not appear to be coming from your heart, your healthcare provider may recommend watching it closely. Sometimes the signs of a serious problem take moretime to appear. Many problems not related to your heart can cause chest pain. These include: Musculoskeletal. Costochondritis is an inflammation of the tissues around the ribs that can occur from trauma or overuse injuries, or a strain of the muscles of the chest wall Respiratory. Pneumonia, collapsed lung (pneumothorax), or inflammation of the lining of the chest and lungs (pleurisy) Gastrointestinal. Esophageal reflux, heartburn, ulcers, or gallbladder disease Anxiety and panic disorders Nerve compression and inflammation Rare miscellaneous problems such as aortic aneurysm (a swelling of the large artery coming out of the heart) or pulmonary embolism (a blood clot in the lungs) Home care After your visit, follow these recommendations: Rest today and avoid strenuous activity. Take any prescribed medicine as directed. Be aware of any recurrent chest pain and notice any changes Follow-up care Follow up with your healthcare provider if you do not start to feel better within 24 hours, or as advised. Call 911 Call 911 if any of these occur: A change in the type of pain: if it feels different, becomes more severe, lasts longer, or begins to spread into your shoulder, arm, neck, jaw or back Shortness of breath or increased pain with breathing Weakness, dizziness, or fainting Rapid heart beat Crushing sensation in your chest When to seek medical advice Call your healthcare provider right away if any of the following occur: Cough with dark colored sputum (phlegm) or blood Fever of 100.4 F (38 C) or higher, or as directed by your healthcare provider Swelling, pain or redness in one leg [employer]. [address] [place] [address]. All rights reserved. This information is not intended as a substitute for professional medical care. Always follow yourhealthcare professional's instructions. Hypokalemia Hypokalemia means a low level of potassium in the blood. This most often occurs in people who take water pills (diuretics). It can also occur because of severe vomiting or diarrhea. You may also haveit if you take laxatives for long periods of time. It sometimes happens if you have low magnesium (hypomagnesemia). If you have this, your healthcare provider will treat the low magnesium first. A mild case of hypokalemia usually causes no symptoms. It is only found with blood testing. More severe potassium loss causes overall weakness, muscle or abdominal cramps, rapid or irregular heartbeats (heart palpitations), low blood pressure, and muscle weakness. Home care Take any potassium supplements as prescribed. Eat foods rich in potassium. The highest amount is found in avocado, baked potatoes, spinach, cantaloupe, cod, halibut, salmon, and scallops. White, red, or bradshaw beans are also very good sources. A modest amount of potassium is found in orange juice, bananas, carrots, and tomato juice. If you take certain types of diuretics, you will also need to take potassium supplements. If you take a diuretic, discuss potassium supplements with your doctor. Follow-up care Follow up with your healthcare provider for a repeat blood test within the next week, or as advisedby our staff. When to seek medical advice Call your healthcare provider right away if any of the following occur: Increased weakness, fatigue, or muscle cramps Dizziness Call 911 Call 911 if any of the following occur: Irregular heartbeat, extra beats, or very fast heart rate Loss of consciousness [employer]. [address] [place] [address]. All rights reserved. This information is not intended as a substitute for professional medical care. Always follow yourhealthcare professional's instructions. Additional Information VACCINATE! IT SAVES LIVES! Members of the community who have not yet received the COVID-19 vaccine and would like to receive it can visit one of [facility] vaccine clinics. There are many vaccine clinic locations within the [facility]. For locations and available times, please visit www.[email or web address].[place].gov/. It is important to note that some COVID mobile vaccine clinics are held outdoors and may be canceled in rainy or stormy conditions. To learn more about pediatric vaccinations (ages 5-11), we invite you to visit the [facility] webpage. [email or web address]/[email or web address] learn more about the COVID-19 vaccine, we invite you to visit the CDC website for a list of frequently asked questions. https://www.cdc.gov/coronavirus/2019-ncov/vaccines/faq.html [facility] Patient Portal Access Instructions: Stay connected with your healthcare team and access your personal medical information anytime with the [facility] Patient Portal. If you would like a full copy of your medical records please contact the [facility] Medical Records Department Monday through Monday between 8a.m. and 4:30p.m. Please follow the directions below to access the portal: 1.Access the email account you provided upon registration to the hospital.2.Look for an invitation email from [facility].3.Open the email and access the invitation link: Accept Invitation to [facility]4.Fill in the required orr to create your account. Sign into [email or web address] with your username and password that you created in the above steps to stay up to date. You can then view a summary of results, a summary of your visits, and the ability to download your summaries to your computer or send the information securely to a physician. Remember that your healthcare information is confidential, so carefully consider who you will allow to register on the [facility] Patient Portal for access to your information. You can also access the [facility] Patient Portal on the [facility]. Simply click on Health Records under [employer] and then click on the [facility] logo. HOW TO SAFELY DISPOSE OF PRESCRIPTION MEDICATIONS Please use one of the following methods to safely dispose of your unused medications. 1.Use a drug disposal kit: the drug disposal pouch allows you to safely discard your old and unuseddrugs. Ask your nurse to give you one when you are discharged.2.Visit a local take-back location: Many local pharmacies and police departments have programs that collect old and unwanted prescriptiondrugs. Call your local pharmacy or go to http://[employer]/7P2Ty0i to find one close to you.3.Make use of household items: Use cat litter or old coffee grounds to dispose medications if other options arenot available. Mix your drugs with these household products, seal them in an airtight container andthrow it into the garbage. Call [facility]: [phone] to be sure your drugs can be disposed of in this way. Some medicines may require a different approach.4.Never flush your medications down the toilet. IF YOU HAVE BEEN PRESCRIBED AN OPIOIDS FOR PAIN If you have been prescribed an opioid (such as hydrocodone, oxycodone or morphine), it is critical to understand the possible side effects and risks of opioid pain medications. Even when taken as directed, opioids can have several side effects including: Tolerance, meaning you might need to take more of a medication for the same pain relief. Nausea, vomiting and/or constipation. Sleepiness, dizziness, dry mouth, confusion, depression or itching. Physical dependence, meaning you have withdrawal symptoms when a medication is stopped ? this can develop within a few days. KNOW YOUR RESPONSIBILITIES It is important to know exactly how much and how often to take the opioid pain medications you are prescribed. Never take opioids in higher amounts or more often than prescribed. Do not combine opioids with alcohol or other drugs that cause drowsiness, such as benzodiazepines, also known as benzos,including diazepam and alprazolam, muscle relaxants or sleep aids. Never sell or share prescriptionopioids. This is illegal. Store opioids in a secure place and out of reach of others (including children, family, friends and visitors). The last page(s) of this document has been signed and retained as a CHART COPY Signatures Patient Education Materials Chest Pain, Uncertain Cause Hypokalemia Medication Leaflets My discharge plan and instructions have been reviewed and explained to me and IWARREN RAY J understand my current condition and have read and understand these discharge instructions. I have received awritten copy of the plan/instructions. If I have questions, I am aware that I should contact my doctor. Patient/Dealer Support Technician Signature: Date/Time: Relationship to Patient: Witness Name/Signature: Date/Time: [facility]06-01-2023 Note ORIGINAL EXAMINATION: ONE XRAY VIEW OF THE CHEST 10/27/2022 5:54 am COMPARISON: 10/24/2022. HISTORY: ORDERING SYSTEM PROVIDED HISTORY: Reason for Exam: chest pain FINDINGS: Stable mild cardiomegaly. No large volume pleural effusion or pneumothorax. Streaky opacities in the lung bases likely on the basis of subsegmental atelectasis. Improved interstitial prominence. Degenerative changes of the spine. IMPRESSION: Subsegmental atelectasis. Improved interstitial prominence, likely on the basis of improving pulmonary edema. I have personally reviewed the images of this examination, and agree with the resident's findings and interpretation. Interpreted by: Darnell Molina MD Preliminary Report By: Aníbal Isaac Electronically signed By Darnell Molina MD Dictated Date: 10/27/2022 5:58:41 AM Prelim Date: 10/27/2022 6:03:50 AM Sign Date: 10/27/2022 6:14:45 AM Ordering Provider: OLLIE BROOKE [facility]06-01-2023 Note ORIGINAL EXAMINATION: ONE XRAY VIEW OF THE CHEST 10/27/2022 5:54 am COMPARISON: 10/24/2022. HISTORY: ORDERING SYSTEM PROVIDED HISTORY: Reason for Exam: chest pain FINDINGS: Stable mild cardiomegaly. No large volume pleural effusion or pneumothorax. Streaky opacities in the lung bases likely on the basis of subsegmental atelectasis. Improved interstitial prominence. Degenerative changes of the spine. IMPRESSION: Subsegmental atelectasis. Improved interstitial prominence, likely on the basis of improving pulmonary edema. I have personally reviewed the images of this examination, and agree with the resident's findings and interpretation. Interpreted by: Darnell Molina MD Preliminary Report By: Aníbal Isaac Electronically signed By Darnell Molina MD Dictated Date: 10/27/2022 5:58:41 AM Prelim Date: 10/27/2022 6:03:50 AM Sign Date: 10/27/2022 6:14:45 AM Ordering Provider: OLLIE [facility]05-30-2023 Hospital Discharge instructions Patient Education 10/25/2022 01:25:48 Treating Insomnia Treating Insomnia Learning to relax before bedtime can improve your sleep. Good sleeping habits are a menon part of treatment. If needed, some medicines may help you sleep better at first. Making healthy lifestyle changes and learning to relax can improve your sleep. Treatinginsomnia takes commitment. But trust that your efforts will pay off. Be sure to talk with your healthcare provider before taking any medicine. Healthy lifestyle Your lifestyle affects your health and your sleep. Here are some healthy habits: Keep a regular sleep schedule. Go to bed and get up at the same time each day. Exercise regularly. It may help you reduce stress. Avoid strenuous exercise for 2 to 4 hours beforebedtime. Avoid or limit naps, especially in the late afternoon. Use your bed only for sleep and sex. Don t spend too much time in bed trying to fall asleep. If you can t fall asleep, get up and do something (no electronics) until you become tired and drowsy. Avoid or limit caffeine and nicotine for up to 6 hours before bedtime. They can keep you awake at night. Also avoid alcohol for at least 4 to 6 hours before bedtime. It may help you fall asleep at first. But you will have more awakenings during the night. And your sleep will not be restful. Before bedtime To sleep better every night, try these tips: Have a bedtime routine to let your body and mind know when it s time to sleep. Think of going to bed as relaxing and enjoyable. Sleep will come sooner. If your worries don t let you sleep, write them down in a diary. Then close it, and go to bed. Make sure the room is not too hot or too cold. If it s not dark enough, an eye mask can help. If its noisy, try using earplugs. Don't eat a large meal just before bedtime. Remove noises, bright lights, TVs, cell phones, and computers from your sleeping environment. Use a comfortable mattress and pillow. Learn to relax Stress, anxiety, and body tension may keep you awake at night. To unwind before bedtime, try a warmbath, meditation, or yoga. Also try the following: Deep breathing. Sit or lie back in a chair. Take a slow, deep breath. Hold it for 5 counts. Then breathe out slowly through your mouth. Keep doing this until you feel relaxed. Progressive muscle relaxation. Tense and then relax the muscles in your body as you breathe deeply.Start with your feet and work up your body to your neck and face. [id number] [employer]. [address] [place] [address]. All rights reserved. This information is not intended as a substitute for professional medical care. Always follow your[facility] health daytoncare professional's instructions. 10/25/2022 01:25:36 Atrial Fibrillation Atrial Fibrillation Atrial fibrillation is a condition in which the heart beats in an irregular pattern. It is caused by a problem in the heart's electrical pathways. It can be a sign of heart disease or other health problems that affect the heart. Heart palpitations are the most common symptom of atrial fibrillation. This is the feeling that your heart is fluttering, beating fast, hard, or irregular. When the heart beats too fast, it doesn't pump blood very well. This can cause other symptoms like anxiety, fatigue, shortness of breath, chestpain, dizziness, or fainting. Atrial fibrillation may come and go. It can last from a few hours to a couple of days. Or, it may become chronic, lasting for months at a time or even become permanent. Atrial fibrillation may be caused by heart disease or other conditions in the body that affect the heart: Coronary artery disease (atherosclerosis) High blood pressure Disease of the heart valves Enlarged heart Heart failure Atrial fibrillation can also occur without heart disease because of: Overactive thyroid (hyperthyroid) Chronic lung disease (COPD, emphysema, bronchitis) Heavy alcohol use Cardiac stimulants like cocaine, amphetamines, diet pills, certain decongestant cold medicines, caffeine, or nicotine Infection Blood clot in the lung (pulmonary embolus) Diabetes Chronic kidney disease Obesity Extreme athletic conditioning Treating or removing these causes will help your treatment for atrial fibrillation. It will also make it less likely for the atrial fibrillation to come back. Atrial fibrillation can alternate back and forth with another abnormal rhythm called atrial flutter. Atrial flutter is a more regular heart rhythm and is also associated with an increased stroke risk. Proper treatment can lower your risk for stroke. Home care Follow these guidelines when caring for yourself at home: Go back to your usual activities as soon as you are feeling back to normal. If you smoke, stop smoking. Contact your healthcare provider or a local stop- smoking program for help. Don't use stimulants like alcohol, cocaine, amphetamines, diet pills, certain decongestant cold medicines, caffeine, or nicotine. If your provider prescribed medicine to stop atrial fibrillation from coming back, take it exactly as directed. Some medicines must be taken every day, not just when you have symptoms. This will helpthem work as they should. If you were prescribed warfarin to lower your risk for stroke, have your blood tested on a regular basis as advised by your provider. This will make sure you are getting the dose that is right for you. It also lower your risk for side effects. Follow-up care Follow up with your healthcare provider, or as advised. When to seek medical advice Call your healthcare provider right away if any of these following occur: Shortness of breath or swelling in the legs gets worse Unexpected weight gain Chest pain or the sense that your heart is fluttering or beating fast or hard (palpitations) Any sign of bleeding if you are on a blood thinner Pain, redness, or swelling in one leg Also call your provider right away if you have these signs of stroke: Weakness of an arm or leg or one side of the face Difficulty with speech or vision Extreme drowsiness, confusion, dizziness, or fainting [id number] [employer]. [address] [place] [address], [place] [address]. All rights reserved. This information is not intended as a substitute for professional medical care. Always follow yourhealthcare professional's instructions. 10/25/2022 01:25:29 Chest Pain, Uncertain Cause Uncertain Causes of Chest Pain Chest pain can happen for a number of reasons. Sometimes the cause can't be determined. If your condition does not seem serious, and your pain does not appear to be coming from your heart, your healthcare provider may recommend watching it closely. Sometimes the signs of a serious problem take moretime to appear. Many problems not related to your heart can cause chest pain. These include: Musculoskeletal. Costochondritis is an inflammation of the tissues around the ribs that can occur from trauma or overuse injuries, or a strain of the muscles of the chest wall Respiratory. Pneumonia, collapsed lung (pneumothorax), or inflammation of the lining of the chest and lungs (pleurisy) Gastrointestinal. Esophageal reflux, heartburn, ulcers, or gallbladder disease Anxiety and panic disorders Nerve compression and inflammation Rare miscellaneous problems such as aortic aneurysm (a swelling of the large artery coming out of the heart) or pulmonary embolism (a blood clot in the lungs) Home care After your visit, follow these recommendations: Rest today and avoid strenuous activity. Take any prescribed medicine as directed. Be aware of any recurrent chest pain and notice any changes Follow-up care Follow up with your healthcare provider if you do not start to feel better within 24 hours, or as advised. Call 911 Call 911 if any of these occur: A change in the type of pain: if it feels different, becomes more severe, lasts longer, or begins to spread into your shoulder, arm, neck, jaw or back Shortness of breath or increased pain with breathing Weakness, dizziness, or fainting Rapid heart beat Crushing sensation in your chest When to seek medical advice Call your healthcare provider right away if any of the following occur: Cough with dark colored sputum (phlegm) or blood Fever of 100.4 F (38 C) or higher, or as directed by your healthcare provider Swelling, pain or redness in one leg [id number] [employer]. [address] [place] [address]. All rights reserved. This information is not intended as a substitute for professional medical care. Always follow yourhealthcare professional's instructions. 10/25/2022 01:25:22 Heart Failure, Congestive (CHF) Left- or Right- Side Congestive Heart Failure (CHF) The heart is a large muscle that acts as a pump to circulate blood throughout the body. Blood carries oxygen to all of the organs, including the brain, muscles, and skin. After your body takes the oxygen out of the blood, the blood returns to the heart. The right side of the heart collects the blood from the body and pumps it to the lungs. In the lungs, it gets fresh oxygen and gives up carbon dioxide. The oxygen-rich blood from the lungs then returns to the left side of the heart, where it is pumped back out to the rest of your body, starting the process all over. Congestive heart failure (CHF) occurs when the heart muscle does not function normally, leading to fluid retention or reduces blood flow. This can be caused by heart muscle weakness or stiffness, or a heart valve problem. Heart failure can affect the right side of the heart or the left side. But heart failure may affect not only the right side of the heart or only the left side. Although it may have started on one side, it can and often eventually does affect both sides. Right-side heart failure When the right side of the heart is failing, it can t handle the blood it is getting from the rest of the body. This blood returns to the heart through veins. When too much pressure builds up in the veins, fluid leaks out into the tissues. [place] then causes that fluid to move to those parts of the body that are the lowest. So one of the first symptoms of right-side CHF can include swelling in the feet and ankles. If the condition gets worse, the swelling can even go up past the knees. Sometimes it gets so severe, the liver and intestines can get congested as well. Left-side heart failure When the left side of the heart is failing, it can t handle the blood it gets from the lungs. Pressure then builds up in the veins of the lungs, causing fluid to leak into the lung tissues. This may cause CHF and pulmonary edema. This causes you to feel short of breath, weak, or dizzy. These symptoms are often worse with exertion, such as when climbing stairs or walking up hills. Lying with your head flat is uncomfortable and can make your breathing worse. This may make sleeping difficult. You may need to use extra pillows to elevate your upper body to sleep well. The same is true when just resting during the daytime. You may also feel weak or tired and have less energy during exertion. There are many causes of heart failure including: Coronary artery disease Past heart attack (also known as acute myocardial infarction, or AMI) High blood pressure Damaged heart valve Diabetes Obesity Cigarette smoking Alcohol abuse Heart failure is usually a chronic condition. The purpose of medical treatment is to improve the pumping action of the heart and to remove excess water from the body. A number of medicines can help reach this goal, improve symptoms, and prevent the heart from becoming weaker. Sometimes, heart failure can become so severe that a device is placed in the heart to help with pumping. Another major goal is to better treat the causes of heart failure, such as diabetes and high blood pressure, by making changes in your lifestyle and maximizing medical control when needed. Home care Follow these guidelines when caring for yourself at home: Check your weight every day. This is very important because a sudden increase in weight gain could mean worsening heart failure. Keep these things in mind: oUse the same scale every day. oWeigh yourself at the same time every day. oMake sure the scale is on a hard floor surface, not on a rug or carpet. oKeep a record of your weight every day so your healthcare provider can see it. If you are not given a log sheet for this, keep a separate journal for this purpose. Cut back on the amount of salt (sodium) you eat. Follow your healthcare provider's recommendation on how much salt or sodium you should have each day. oLimit high-salt foods. These include olives, pickles, smoked meats, salted potato chips, and most prepared foods. oDon't add salt to your food at the table. Use only small amounts of salt when cooking. oRead the labels carefully on food packages to learn how much salt or sodium is in each serving in the package. Remember, a can or package of food may contain more than 1 serving. So if you eat all the food in the package, you may be getting more salt than you think. Follow your healthcare provider's recommendations about how much fluid you should have. Be aware that some foods, such as soup, pudding, and juicy fruits like oranges or melons, contain liquid. You'll need to count the liquid in those foods as part of your daily fluid intake. Your provider can helpyou with this. Stop smoking. Cut back on how much alcohol you drink. Lose weight if you are overweight. The excess weight adds a lot of stress on the workload of the heart. Stay active. Talk with your provider about an exercise program that is safe for your heart. Keep your feet elevated to reduce swelling. Ask your provider about support hose as a preventive treatment for daytime leg swelling. Besides taking your medicine as instructed, an important part of treatment is lifestyle changes. These include diet, physical activity, stopping smoking, and weight control. Improve your diet by including more fresh foods, cutting back on how much sugar and saturated fat you eat, and eating fewer processed foods and less salt. Follow-up care Follow up with your healthcare provider, or as advised. Make sure to keep any appointments that were made for you. These can help better control your congestive heart failure. You will need to follow up with your provider on a routine basis to make sure your heart failure is well managed. If an X-ray, electrocardiogram (ECG), or other tests were done, you will be told of any new findings that may affect your care. Call 911 Call 911 if you: Become severely short of breath Feel lightheaded, or feel like you might pass out or faint Have chest pain or discomfort that is different than usual, the medicines your doctor told you to use for this don't help, or the pain lasts longer than 10 to 15 minutes You suddenly develop a rapid heart rate When to seek medical advice The following may be signs that your heart failure is getting worse. Call your healthcare provider right away if any of these happen: Sudden weight gain. This means 3 or more pounds in one day, or 5 or more pounds in 1 week Trouble breathing not related to being active New or increased swelling of your legs or ankles Swelling or pain in your abdomen Breathing trouble at night. This means waking up short of breath or needing more pillows to breathe. Frequent coughing that doesn t go away Feeling much more tired than usual [id number] [employer] [place] [id number]. All rights reserved. This information is not intended as a substitute for professional medical care. Always follow yourhealthcare professional's instructions. Follow Up Care 10/24/2022 23:09:33 With:Call Physician Referral Address:Unknown When:2-4 days Comments:Call for referral to establish a primary care doctor you can see on a regular basis. 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 [facility] 05-30-2023 Note Discharge Instructions Thank you for allowing [facility] to assist you with your healthcare needs. The following is importantdischarge information regarding your hospital visit. Diagnosis from Today's Visit Chest pain Shortness of breath What to Do Next Instructions from Your Care Team No qualifying data available. Post Acute Orders No qualifying data available. You Need to Schedule the Following Appointments Follow Up with Call Physician Referral When Within 2-4 days Why: Call for referral to establish a primary care doctor you can see on a regular basis. 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 Double your dose of Lasix from 20 mg once a day to 20 mg twice a day. Continue all other routine medications including the ones you were recently prescribed from [facility]. Use potassium supplement and sleep aid (trazodone) as prescribed. Return to the ED if symptoms worsen. Where: [address] [facility] [place] [address] [phone] Business (1) Allergies NKA Medications Please ask your primary doctor or pharmacist before taking any other medication not listed, including over the counter drugs, herbal medications, vitamins and or supplements as they may interact withyour home medications. What How Much When Instructions Last Dose New potassium chloride (Potassium Chloride (Eqv-K-Tab) 10mEq oral tablet, extended release) 1 tab(s) by mouth Once a day Duration: 30 Days Printed Prescription New traZODone (traZODone 50 mg oral tablet) 1 tab(s) by mouth Daily at bedtime Duration: 7 Days Printed Prescription Unchanged allopurinol 500 Milligram by mouth Once a day Unchanged amLODIPine (Norvasc 5 mg oral tablet) 1 tab(s) by mouth Once a day Unchanged brimonidine ophthalmic (Alphagan P 0.1% ophthalmic solution) 1 Drops Both eyes Every 8 hours Unchanged furosemide (Lasix 20 mg oral tablet) 1 tab(s) by mouth Once a day Unchanged hydroCHLOROthiazide 50 Milligram by mouth Once a day Unchanged lisinopril 40 Milligram by mouth Once a day Unchanged metFORMIN (MetFORMIN (Eqv-Fortamet) 500 mg oral tablet, EXTENDED RELEASE) 1 tab(s) by mouth Once a day Unchanged metoprolol (Metoprolol Tartrate 25 mg oral tablet) 1 tab(s) by mouth Two (2) times a day Unchanged naproxen (naproxen 250 mg oral tablet) 1 tab(s) by mouth Two (2) times a day Unchanged omeprazole (omeprazole 40 mg oral delayed release capsule) 1 cap by mouth Once a day before a meal Unchanged rivaroxaban (Xarelto 20 mg oral tablet) 1 tab(s) by mouth Daily at bedtime Unchanged timolol ophthalmic (timolol maleate 0.25% ophthalmic solution) 1 Drops Both eyes Two (2) times a day Please take this list to your next doctor s visit. Bring all medications you take, including over the counter medications, herbals and other supplements with you to your doctor s visit. Patients and families are reminded to discard old lists and to update any records with all medication providers or retail pharmacies. Medication Leaflets potassium chloride (oral/injection) (ann marie TASS ee ) Rohit Potassium 99, Klor-Con, K-Tab, Potassium Chloride Proamp What is the most important information I should know about potassium chloride? You should not use this medicine if you have high levels of potassium in your blood (hyperkalemia),or if you also take a 'potassium-sparing' diuretic. What is potassium chloride? Potassium is a mineral that is needed for several functions of your body, especially the beating ofyour heart. Potassium chloride is used to prevent or to treat low blood levels of potassium (hypokalemia). Potassium levels can be low as a result of a disease or from taking certain medicines, or after a prolonged illness with diarrhea or vomiting. Potassium chloride may also be used for purposes not listed in this medication guide. What should I discuss with my healthcare provider before taking potassium chloride? You should not use potassium chloride if you are allergic to it, or if: you have high levels of potassium in your blood (hyperkalemia); or you take a 'potassium-sparing' diuretic (water pill) such as amiloride, spironolactone, or triamterene. Tell your doctor if you have ever had: heart problems; high blood pressure; liver or kidney disease; a large tissue injury such as a severe burn; an electrolyte imbalance (such as low levels of calcium or magnesium in your blood); trouble swallowing; slow digestion; stomach bleeding, an ulcer, or a blockage in your stomach or intestines; an adrenal gland disorder; diabetes; or severe dehydration. Tell your doctor if you are or . How should I take potassium chloride? Follow all directions on your prescription label and read all medication guides or instruction sheets. Your doctor may occasionally change your dose. Use the medicine exactly as directed. Potassium chloride oral is taken by mouth. Potassium chloride injection is given as a slow infusioninto a vein. A healthcare provider will give you this medicine by injection if you have severely low potassium levels. Tell your caregivers if you feel any burning, pain, or swelling around the IV needle when potassium chloride is injected. Take oral potassium chloride with food if the medicine upsets your stomach. Always follow directions on the medicine label about giving this medicine to a child. Take the tablet or capsule with a full glass of water. Do not crush, chew, or suck on a potassium tablet or capsule. Sucking on the pill could irritate your mouth or throat. Measure liquid medicine carefully. Use the dosing syringe provided, or use a medicine dose-measuring device (not a kitchen spoon). Mix the oral solution with least 4 ounces of water before taking it. You may need to follow a special diet while using potassium chloride. Follow all instructions of your doctor or dietitian. Learn about the foods to eat or avoid to help control your condition. Call your doctor if you have trouble swallowing a potassium chloride capsule or tablet. You may be able to dissolve the tablet in water, or mix the medicine from a capsule with soft food. Carefully follow your doctor's instructions. You may need frequent medical tests. Your heart function may need to be checked using an electrocardiograph or ECG (sometimes called an EKG). Even if you have no symptoms, tests can help your doctor determine if this medicine is effective. Some tablets are made with a shell that is not absorbed or melted in the body. Part of this shell may appear in your stool. This is normal and will not make the medicine less effective. Store at room temperature away from moisture, heat, and light. Keep the medication in a closed container. What happens if I miss a dose? Take the medicine as soon as you can, but skip the missed dose if it is almost time for your next dose. Do not take two doses at one time. What happens if I overdose? Seek emergency medical attention or call the Poison Help line at . Overdose symptoms may include stomach pain, vomiting, irregular heartbeats, chest pain, muscle weakness, loss of movement, numbness or tingling, or feeling light-headed. What should I avoid while taking potassium chloride? Do not use potassium supplements or other products that contain potassium, unless your doctor has told you to. Salt substitutes or low-salt foods often contain potassium. Read the label of any food or medicine to see if it contains potassium. What are the possible side effects of potassium chloride? Get emergency medical help if you have signs of an allergic reaction: hives; difficult breathing; swelling of your face, lips, tongue, or throat. Stop using potassium chloride and call your doctor at once if you have: severe throat irritation; chest pain, trouble breathing; pain, burning, bruising, swelling, irritation, or skin changes where the medicine was injected; stomach bloating, severe vomiting, severe stomach pain; high potassium level--nausea, weakness, tingly feeling, chest pain, irregular heartbeats, loss of movement; or signs of stomach bleeding--bloody or tarry stools, coughing up blood or vomit that looks like coffee grounds. Common side effects may include: nausea, vomiting, diarrhea; gas, stomach pain; or the appearance of a potassium chloride tablet in your stool. This is not a complete list of side effects and others may occur. Call your doctor for medical advice about side effects. You may report side effects to FDA at 1-379-QGU-8961. What other drugs will affect potassium chloride? Tell your doctor about all your other medicines, especially: medicine to prevent organ transplant rejection; a diuretic or 'water pill'; or heart or blood pressure medication. This list is not complete. Other drugs may affect potassium chloride, including prescription and xynl-pyj-trwyllb medicines, vitamins, and herbal products. Not all possible drug interactions are listed here. Where can I get more information? Your pharmacist can provide more information about potassium chloride. Remember, keep this and all other medicines out of the reach of children, never share your medicines with others, and use this medication only for the indication prescribed. Every effort has been made to ensure that the information provided by [employer]. ('[employer]') is accurate, up-to-date, and complete, but no guarantee is made to that effect. Drug information contained herein may be time sensitive. [employer] information has been compiled for use by healthcare practitioners and consumers in the [place] and therefore [employer] does not warrant that uses outside of the [place] are appropriate, unless specifically indicated otherwise. [employer] drug information does not endorse drugs, diagnose patients or recommend therapy. [employer] drug information isan informational resource designed to assist licensed healthcare practitioners in caring for their p atients and/or to serve consumers viewing this service as a supplement to, and not a substitute for, the expertise, skill, knowledge and judgment of healthcare practitioners. The absence of a warningfor a given drug or drug combination in no way should be construed to indicate that the drug or drug combination is safe, effective or appropriate for any given patient. [employer] does not assume any responsibility for any aspect of healthcare administered with the aid of information [employer] provides. The information contained herein is not intended to cover all possible uses, directions, precautions, warnings, drug interactions, allergic reactions, or adverse effects. If you have questions about the drugs you are taking, check with your doctor, nurse or pharmacist. Copyright 1158-1485 [employer]. Version: 14.01. Revision Date: 10/24/2019. trazodone (TRAZ oh done) Jacki What is the most important information I should know about trazodone? Some young people have thoughts about suicide when first taking an antidepressant. Stay alert to changes in your mood or symptoms. Report any new or worsening symptoms to your doctor. Trazodone is not approved for use by anyone younger than 18 years old. What is trazodone? Trazodone is an antidepressant that is used to treat major depressive disorder. Trazodone may also be used for purposes not listed in this medication guide. What should I discuss with my healthcare provider before taking trazodone? You should not use trazodone if you are allergic to it. Do not use trazodone if you have used an MAO inhibitor in the past 14 days. A dangerous drug interaction could occur. MAO inhibitors include isocarboxazid, linezolid, methylene blue injection, phenelzine, tranylcypromine, and others. After you stop taking trazodone, you must wait at least 14 days before you start taking an MAOI. Tell your doctor if you also take stimulant medicine, opioid medicine, herbal products, or medicinefor depression, mental illness, Parkinson's disease, migraine headaches, serious infections, or prevention of nausea and vomiting. An interaction with trazodone could cause a serious condition calledserotonin syndrome. Tell your doctor if you have ever had: liver or kidney disease; heart disease, or a recent heart attack; a bleeding or blood clotting disorder; seizures or epilepsy; narrow-angle glaucoma; long QT syndrome; drug addiction or suicidal thoughts; or bipolar disorder (manic depression). Some young people have thoughts about suicide when first taking an antidepressant. Your doctor should check your progress at regular visits. Your family or other caregivers should also be alert to changes in your mood or symptoms. Taking this medicine during could harm the baby, but stopping the medicine may not be safe for you. Do not start or stop trazodone without asking your doctor. If you are , your name may be listed on a registry to track the effects of trazodone on the baby. Ask a doctor if it is safe to breastfeed while using this medicine. Trazodone is not approved for use by anyone younger than 18 years old. How should I take trazodone? Follow all directions on your prescription label and read all medication guides or instruction sheets. Your doctor may occasionally change your dose. Use the medicine exactly as directed. Take trazodone after a meal or a snack. Your symptoms may not improve for up to 2 weeks. Do not stop using trazodone suddenly, or you could have unpleasant symptoms (such as agitation, confusion, tingling or electric shock feelings). Ask your doctor before stopping the medicine. Store at room temperature away from moisture, heat, and light. What happens if I miss a dose? Take the medicine as soon as you can, but skip the missed dose if it is almost time for your next dose. Do not take two doses at one time. What happens if I overdose? Seek emergency medical attention or call the Poison Help line at . An overdose can befatal when trazodone is taken with alcohol, barbiturates such as phenobarbital, or sedatives such as diazepam (Valium). Overdose symptoms may include extreme drowsiness, vomiting, penis erection that is painful or prolonged, fast or pounding heartbeat, seizure (black-out or convulsions), or breathing that slows or stops. What should I avoid while taking trazodone? Do not drink alcohol. Dangerous side effects or could occur. Ask your doctor before taking a nonsteroidal anti-inflammatory drug (NSAID) such as aspirin, ibuprofen, naproxen, Advil, Aleve, Motrin, and others. Using an NSAID with trazodone may cause you to bruise or bleed easily. Avoid driving or hazardous activity until you know how this medicine will affect you. Your reactions could be impaired. Avoid getting up too fast from a sitting or lying position, or you may feel dizzy. What are the possible side effects of trazodone? Get emergency medical help if you have signs of an allergic reaction: hives; difficulty breathing; swelling of your face, lips, tongue, or throat. Stop taking trazodone and call your doctor at once if you have a penis erection that is painful or lasts 6 hours or longer. This is a medical emergency and could lead to a serious condition that mustbe corrected with surgery. Report any new or worsening symptoms to your doctor, such as: mood or behavior changes, anxiety, panic attacks, trouble sleeping, or if you feel impulsive, irritable, agitated, hostile, aggressive, restless, hyperactive (mentally or physically), more depressed, or have thoughts about suicide or hurting yourself. Call your doctor at once if you have: fast or pounding heartbeats, fluttering in your chest, shortness of breath, and sudden dizziness (like you might pass out); slow heartbeats; unusual thoughts or behavior; easy bruising, unusual bleeding; or low levels of sodium in the body--headache, confusion, slurred speech, severe weakness, vomiting, loss of coordination, feeling unsteady. Seek medical attention right away if you have symptoms of serotonin syndrome, such as: agitation, hallucinations, fever, sweating, shivering, fast heart rate, muscle stiffness, twitching, loss of coordination, nausea, vomiting, or diarrhea. Common side effects may include: drowsiness, dizziness, tiredness; swelling; weight loss; blurred vision; diarrhea, constipation; or stuffy nose. This is not a complete list of side effects and others may occur. Call your doctor for medical advice about side effects. You may report side effects to FDA at 1-730-QEP-6341. What other drugs will affect trazodone? Using trazodone with other drugs that make you drowsy can worsen this effect. Ask your doctor before using opioid medication, a sleeping pill, a muscle relaxer, or medicine for anxiety or seizures. Tell your doctor about all your current medicines. Many drugs can affect trazodone, especially: any other antidepressants; phenytoin; Rand's wort; tramadol; a diuretic or 'water pill'; medicine to treat anxiety, mood disorders, or mental illness such as schizophrenia; a blood thinner--warfarin, Coumadin, Jantoven; or migraine headache medicine--sumatriptan, Imitrex, Maxalt, Treximet, and others. This list is not complete and many other drugs may affect trazodone. This includes prescription awfwwdw-nfg-lgwwlgn medicines, vitamins, and herbal products. Not all possible drug interactions are listed here. Where can I get more information? Your pharmacist can provide more information about trazodone. Remember, keep this and all other medicines out of the reach of children, never share your medicines with others, and use this medication only for the indication prescribed. Every effort has been made to ensure that the information provided by [employer]') is accurate, up-to-date, and complete, but no guarantee is made to that effect. Drug information contained herein may be time sensitive. [employer] information has been compiled for use by healthcare practitioners and consumers in the [place] and therefore [employer] does not warrant that uses outside of the [place] are appropriate, unless specifically indicated otherwise. [employer]'s drug information does not endorse drugs, diagnose patients or recommend therapy. [employer] drug information isan informational resource designed to assist licensed healthcare practitioners in caring for their p atients and/or to serve consumers viewing this service as a supplement to, and not a substitute for, the expertise, skill, knowledge and judgment of healthcare practitioners. The absence of a warningfor a given drug or drug combination in no way should be construed to indicate that the drug or drug combination is safe, effective or appropriate for any given patient. [facility] does not assume any responsibility for any aspect of healthcare administered with the aid of information [facility] provides. The information contained herein is not intended to cover all possible uses, directions, precautions, warnings, drug interactions, allergic reactions, or adverse effects. If you have questions about the drugs you are taking, check with your doctor, nurse or pharmacist. Copyright 0615-3032 [employer] [facility]. Version: 10.04. Revision Date: 11/09/2020. Education Materials Treating Insomnia Learning to relax before bedtime can improve your sleep. Good sleeping habits are a menon part of treatment. If needed, some medicines may help you sleep better at first. Making healthy lifestyle changes and learning to relax can improve your sleep. Treatinginsomnia takes commitment. But trust that your efforts will pay off. Be sure to talk with your healthcare provider before taking any medicine. Healthy lifestyle Your lifestyle affects your health and your sleep. Here are some healthy habits: Keep a regular sleep schedule. Go to bed and get up at the same time each day. Exercise regularly. It may help you reduce stress. Avoid strenuous exercise for 2 to 4 hours beforebedtime. Avoid or limit naps, especially in the late afternoon. Use your bed only for sleep and sex. Don t spend too much time in bed trying to fall asleep. If you can t fall asleep, get up and do something (no electronics) until you become tired and drowsy. Avoid or limit caffeine and nicotine for up to 6 hours before bedtime. They can keep you awake at night. Also avoid alcohol for at least 4 to 6 hours before bedtime. It may help you fall asleep at first. But you will have more awakenings during the night. And your sleep will not be restful. Before bedtime To sleep better every night, try these tips: Have a bedtime routine to let your body and mind know when it s time to sleep. Think of going to bed as relaxing and enjoyable. Sleep will come sooner. If your worries don t let you sleep, write them down in a diary. Then close it, and go to bed. Make sure the room is not too hot or too cold. If it s not dark enough, an eye mask can help. If its noisy, try using earplugs. Don't eat a large meal just before bedtime. Remove noises, bright lights, TVs, cell phones, and computers from your sleeping environment. Use a comfortable mattress and pillow. Learn to relax Stress, anxiety, and body tension may keep you awake at night. To unwind before bedtime, try a warmbath, meditation, or yoga. Also try the following: Deep breathing. Sit or lie back in a chair. Take a slow, deep breath. Hold it for 5 counts. Then breathe out slowly through your mouth. Keep doing this until you feel relaxed. Progressive muscle relaxation. Tense and then relax the muscles in your body as you breathe deeply.Start with your feet and work up your body to your neck and face. 0299-4016 [employer]. [address] [place] [address]. All rights reserved. This information is not intended as a substitute for professional medical care. Always follow yourhealthcare professional's instructions. Atrial Fibrillation Atrial fibrillation is a condition in which the heart beats in an irregular pattern. It is caused by a problem in the heart's electrical pathways. It can be a sign of heart disease or other health problems that affect the heart. Heart palpitations are the most common symptom of atrial fibrillation. This is the feeling that your heart is fluttering, beating fast, hard, or irregular. When the heart beats too fast, it doesn't pump blood very well. This can cause other symptoms like anxiety, fatigue, shortness of breath, chestpain, dizziness, or fainting. Atrial fibrillation may come and go. It can last from a few hours to a couple of days. Or, it may become chronic, lasting for months at a time or even become permanent. Atrial fibrillation may be caused by heart disease or other conditions in the body that affect the heart: Coronary artery disease (atherosclerosis) High blood pressure Disease of the heart valves Enlarged heart Heart failure Atrial fibrillation can also occur without heart disease because of: Overactive thyroid (hyperthyroid) Chronic lung disease (COPD, emphysema, bronchitis) Heavy alcohol use Cardiac stimulants like cocaine, amphetamines, diet pills, certain decongestant cold medicines, caffeine, or nicotine Infection Blood clot in the lung (pulmonary embolus) Diabetes Chronic kidney disease Obesity Extreme athletic conditioning Treating or removing these causes will help your treatment for atrial fibrillation. It will also make it less likely for the atrial fibrillation to come back. Atrial fibrillation can alternate back and forth with another abnormal rhythm called atrial flutter. Atrial flutter is a more regular heart rhythm and is also associated with an increased stroke risk. Proper treatment can lower your risk for stroke. Home care Follow these guidelines when caring for yourself at home: Go back to your usual activities as soon as you are feeling back to normal. If you smoke, stop smoking. Contact your healthcare provider or a local stop- smoking program for help. Don't use stimulants like alcohol, cocaine, amphetamines, diet pills, certain decongestant cold medicines, caffeine, or nicotine. If your provider prescribed medicine to stop atrial fibrillation from coming back, take it exactly as directed. Some medicines must be taken every day, not just when you have symptoms. This will helpthem work as they should. If you were prescribed warfarin to lower your risk for stroke, have your blood tested on a regular basis as advised by your provider. This will make sure you are getting the dose that is right for you. It also lower your risk for side effects. Follow-up care Follow up with your healthcare provider, or as advised. When to seek medical advice Call your healthcare provider right away if any of these following occur: Shortness of breath or swelling in the legs gets worse Unexpected weight gain Chest pain or the sense that your heart is fluttering or beating fast or hard (palpitations) Any sign of bleeding if you are on a blood thinner Pain, redness, or swelling in one leg Also call your provider right away if you have these signs of stroke: Weakness of an arm or leg or one side of the face Difficulty with speech or vision Extreme drowsiness, confusion, dizziness, or fainting [id number] [employer]. [address] [place] [address]. All rights reserved. This information is not intended as a substitute for professional medical care. Always follow yourhealthcare professional's instructions. Uncertain Causes of Chest Pain Chest pain can happen for a number of reasons. Sometimes the cause can't be determined. If your condition does not seem serious, and your pain does not appear to be coming from your heart, your healthcare provider may recommend watching it closely. Sometimes the signs of a serious problem take moretime to appear. Many problems not related to your heart can cause chest pain. These include: Musculoskeletal. Costochondritis is an inflammation of the tissues around the ribs that can occur from trauma or overuse injuries, or a strain of the muscles of the chest wall Respiratory. Pneumonia, collapsed lung (pneumothorax), or inflammation of the lining of the chest and lungs (pleurisy) Gastrointestinal. Esophageal reflux, heartburn, ulcers, or gallbladder disease Anxiety and panic disorders Nerve compression and inflammation Rare miscellaneous problems such as aortic aneurysm (a swelling of the large artery coming out of the heart) or pulmonary embolism (a blood clot in the lungs) Home care After your visit, follow these recommendations: Rest today and avoid strenuous activity. Take any prescribed medicine as directed. Be aware of any recurrent chest pain and notice any changes Follow-up care Follow up with your healthcare provider if you do not start to feel better within 24 hours, or as advised. Call 911 Call 911 if any of these occur: A change in the type of pain: if it feels different, becomes more severe, lasts longer, or begins to spread into your shoulder, arm, neck, jaw or back Shortness of breath or increased pain with breathing Weakness, dizziness, or fainting Rapid heart beat Crushing sensation in your chest When to seek medical advice Call your healthcare provider right away if any of the following occur: Cough with dark colored sputum (phlegm) or blood Fever of 100.4 F (38 C) or higher, or as directed by your healthcare provider Swelling, pain or redness in one leg [id number] [employer] [address] [place] [address]. All rights reserved. This information is not intended as a substitute for professional medical care. Always follow yourhealthcare professional's instructions. Left- or Right- Side Congestive Heart Failure (CHF) The heart is a large muscle that acts as a pump to circulate blood throughout the body. Blood carries oxygen to all of the organs, including the brain, muscles, and skin. After your body takes the oxygen out of the blood, the blood returns to the heart. The right side of the heart collects the blood from the body and pumps it to the lungs. In the lungs, it gets fresh oxygen and gives up carbon dioxide. The oxygen-rich blood from the lungs then returns to the left side of the heart, where it is pumped back out to the rest of your body, starting the process all over. Congestive heart failure (CHF) occurs when the heart muscle does not function normally, leading to fluid retention or reduces blood flow. This can be caused by heart muscle weakness or stiffness, or a heart valve problem. Heart failure can affect the right side of the heart or the left side. But heart failure may affect not only the right side of the heart or only the left side. Although it may have started on one side, it can and often eventually does affect both sides. Right-side heart failure When the right side of the heart is failing, it can t handle the blood it is getting from the rest of the body. This blood returns to the heart through veins. When too much pressure builds up in the veins, fluid leaks out into the tissues. [place] then causes that fluid to move to those parts of the body that are the lowest. So one of the first symptoms of right-side CHF can include swelling in the feet and ankles. If the condition gets worse, the swelling can even go up past the knees. Sometimes it gets so severe, the liver and intestines can get congested as well. Left-side heart failure When the left side of the heart is failing, it can t handle the blood it gets from the lungs. Pressure then builds up in the veins of the lungs, causing fluid to leak into the lung tissues. This may cause CHF and pulmonary edema. This causes you to feel short of breath, weak, or dizzy. These symptoms are often worse with exertion, such as when climbing stairs or walking up hills. Lying with your head flat is uncomfortable and can make your breathing worse. This may make sleeping difficult. You may need to use extra pillows to elevate your upper body to sleep well. The same is true when just resting during the daytime. You may also feel weak or tired and have less energy during exertion. There are many causes of heart failure including: Coronary artery disease Past heart attack (also known as acute myocardial infarction, or AMI) High blood pressure Damaged heart valve Diabetes Obesity Cigarette smoking Alcohol abuse Heart failure is usually a chronic condition. The purpose of medical treatment is to improve the pumping action of the heart and to remove excess water from the body. A number of medicines can help reach this goal, improve symptoms, and prevent the heart from becoming weaker. Sometimes, heart failure can become so severe that a device is placed in the heart to help with pumping. Another major goal is to better treat the causes of heart failure, such as diabetes and high blood pressure, by making changes in your lifestyle and maximizing medical control when needed. Home care Follow these guidelines when caring for yourself at home: Check your weight every day. This is very important because a sudden increase in weight gain could mean worsening heart failure. Keep these things in mind: oUse the same scale every day. oWeigh yourself at the same time every day. oMake sure the scale is on a hard floor surface, not on a rug or carpet. oKeep a record of your weight every day so your healthcare provider can see it. If you are not given a log sheet for this, keep a separate journal for this purpose. Cut back on the amount of salt (sodium) you eat. Follow your healthcare provider's recommendation on how much salt or sodium you should have each day. oLimit high-salt foods. These include olives, pickles, smoked meats, salted potato chips, and most prepared foods. oDon't add salt to your food at the table. Use only small amounts of salt when cooking. oRead the labels carefully on food packages to learn how much salt or sodium is in each serving in the package. Remember, a can or package of food may contain more than 1 serving. So if you eat all the food in the package, you may be getting more salt than you think. Follow your healthcare provider's recommendations about how much fluid you should have. Be aware that some foods, such as soup, pudding, and juicy fruits like oranges or melons, contain liquid. You'll need to count the liquid in those foods as part of your daily fluid intake. Your provider can helpyou with this. Stop smoking. Cut back on how much alcohol you drink. Lose weight if you are overweight. The excess weight adds a lot of stress on the workload of the heart. Stay active. Talk with your provider about an exercise program that is safe for your heart. Keep your feet elevated to reduce swelling. Ask your provider about support hose as a preventive treatment for daytime leg swelling. Besides taking your medicine as instructed, an important part of treatment is lifestyle changes. These include diet, physical activity, stopping smoking, and weight control. Improve your diet by including more fresh foods, cutting back on how much sugar and saturated fat you eat, and eating fewer processed foods and less salt. Follow-up care Follow up with your healthcare provider, or as advised. Make sure to keep any appointments that were made for you. These can help better control your congestive heart failure. You will need to follow up with your provider on a routine basis to make sure your heart failure is well managed. If an X-ray, electrocardiogram (ECG), or other tests were done, you will be told of any new findings that may affect your care. Call 911 Call 911 if you: Become severely short of breath Feel lightheaded, or feel like you might pass out or faint Have chest pain or discomfort that is different than usual, the medicines your doctor told you to use for this don't help, or the pain lasts longer than 10 to 15 minutes You suddenly develop a rapid heart rate When to seek medical advice The following may be signs that your heart failure is getting worse. Call your healthcare provider right away if any of these happen: Sudden weight gain. This means 3 or more pounds in one day, or 5 or more pounds in 1 week Trouble breathing not related to being active New or increased swelling of your legs or ankles Swelling or pain in your abdomen Breathing trouble at night. This means waking up short of breath or needing more pillows to breathe. Frequent coughing that doesn t go away Feeling much more tired than usual [phone] [employer]. [address] [place] [address]. All rights reserved. This information is not intended as a substitute for professional medical care. Always follow yourhealthcare professional's instructions. Additional Information VACCINATE! IT SAVES LIVES! Members of the community who have not yet received the COVID-19 vaccine and would like to receive it can visit one of [facility] vaccine clinics. There are many vaccine clinic locations within the [facility]. For locations and available times, please visit www.gettheshot.coronavirus.[place].gov/. It is important to note that some COVID mobile vaccine clinics are held outdoors and may be canceled in rainy or stormy conditions. To learn more about pediatric vaccinations (ages 5-11), we invite you to visit the [facility] webpage. https://www.[email or web address].org/pages/8694-Xlyjm-Onhzruduzba-Etpwjtsloz-Dfagd-Ckj stions.htmlTo learn more about the COVID-19 vaccine, we invite you to visit the CDC website for a list of frequently asked questions. https://www.cdc.gov/coronavirus/2019-ncov/vaccines/faq.html [facility] Patient Portal Access Instructions: Stay connected with your healthcare team and access your personal medical information anytime with the [facility] Patient Portal. If you would like a full copy of your medical records please contact the [facility] Medical Records Department Monday through Monday between 8a.m. and 4:30p.m. Please follow the directions below to access the portal: 1.Access the email account you provided upon registration to the [facility].2.Look for an invitation email from [facility].3.Open the email and access the invitation link: Accept Invitation to [facility]4.Fill in the required orr to create your account. Sign into [email or web address] with your username and password that you created in the above steps to stay up to date. You can then view a summary of results, a summary of your visits, and the ability to download your summaries to your computer or send the information securely to a physician. Remember that your healthcare information is confidential, so carefully consider who you will allow to register on the [facility] Patient Portal for access to your information. You can also access the [facility] Patient Portal on the [employer]. Simply click on Health Records under [employer] and then click on the [employer] logo. HOW TO SAFELY DISPOSE OF PRESCRIPTION MEDICATIONS Please use one of the following methods to safely dispose of your unused medications. 1.Use a drug disposal kit: the drug disposal pouch allows you to safely discard your old and unuseddrugs. Ask your nurse to give you one when you are discharged.2.Visit a local take-back location: Many local pharmacies and police departments have programs that collect old and unwanted prescriptiondrugs. Call your local pharmacy or go to http://[employer]/2G7Ic6f to find one close to you.3.Make use of household items: Use cat litter or old coffee grounds to dispose medications if other options arenot available. Mix your drugs with these household products, seal them in an airtight container andthrow it into the garbage. Call [facility]: [phone] to be sure your drugs can be disposed of in this way. Some medicines may require a different approach.4.Never flush your medications down the toilet. IF YOU HAVE BEEN PRESCRIBED AN OPIOIDS FOR PAIN If you have been prescribed an opioid (such as hydrocodone, oxycodone or morphine), it is critical to understand the possible side effects and risks of opioid pain medications. Even when taken as directed, opioids can have several side effects including: Tolerance, meaning you might need to take more of a medication for the same pain relief. Nausea, vomiting and/or constipation. Sleepiness, dizziness, dry mouth, confusion, depression or itching. Physical dependence, meaning you have withdrawal symptoms when a medication is stopped ? this can develop within a few days. KNOW YOUR RESPONSIBILITIES It is important to know exactly how much and how often to take the opioid pain medications you are prescribed. Never take opioids in higher amounts or more often than prescribed. Do not combine opioids with alcohol or other drugs that cause drowsiness, such as benzodiazepines, also known as benzos,including diazepam and alprazolam, muscle relaxants or sleep aids. Never sell or share prescriptionopioids. This is illegal. Store opioids in a secure place and out of reach of others (including children, family, friends and visitors). The last page(s) of this document has been signed and retained as a CHART COPY Signatures Patient Education Materials Treating Insomnia Atrial Fibrillation Chest Pain, Uncertain Cause Heart Failure, Congestive (CHF) Medication Leaflets potassium chloride (oral/injection), trazodone My discharge plan and instructions have been reviewed and explained to me and I,SOCORRO KELLEY understand my current condition and have read and understand these discharge instructions. I have received awritten copy of the plan/instructions. If I have questions, I am aware that I should contact my doctor. Patient/Dealer Support Technician Signature: Date/Time: Relationship to Patient: Witness Name/Signature: Date/Time: [facility] [id number] Note ORIGINAL EXAMINATION: CTA OF THE CHEST 10/25/2022 12:58 am TECHNIQUE: CTA of the chest was performed after the administration of intravenous contrast. Multiplanar reformatted images are provided for review. MIP images are provided for review. Automated exposure control, iterative reconstruction, and/or weight based adjustment of the mA/kV was utilized to reduce the radiation dose to as low as reasonably achievable. COMPARISON: Chest x-ray on 10/24/2022 HISTORY: ORDERING SYSTEM PROVIDED HISTORY: Reason for Exam: difficulty breathing; suspect PE FINDINGS: Pulmonary Arteries: Pulmonary arteries are adequately opacified for evaluation. No evidence of intraluminal filling defect to suggest pulmonary embolism. Main pulmonary artery is normal in caliber. Mediastinum: The heart is moderately enlarged. No pericardial fluid is present. No coronary artery calcification is detected. Borderline size lymph nodes are present in the aortopulmonic window region and right paratracheal region as well as the subcarinal region. Thoracic aorta is nonaneurysmal with no evidence of aortic dissection. 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 There is more fluid on the right than on the left. There is associated compressive atelectasis in dependent portion of both lower lobes. There is no pneumothorax. No infiltrate suspicious for pneumonia is detected. Upper Abdomen: The liver is nodular in contour without focal abnormality. The spleen is enlarged with AP diameter of 17 cm. Soft Tissues/Bones: No acute bone or soft tissue abnormality. IMPRESSION: No evidence of pulmonary embolism. Cardiomegaly and a small bilateral pleural effusions with mild compressive atelectasis. Vascular congestion is better demonstrated on recent chest x-ray. The findings are consistent with congestive heart failure. Nodular liver with splenomegaly, consistent with cirrhosis. Interpreted by: Darnell Molina MD Preliminary Report By: Darnell Molina MD Electronically signed By Darnell Molina MD Dictated Date: 10/25/2022 1:03:23 AM Prelim Date: 10/25/2022 1:09:48 AM Sign Date: 10/25/2022 1:09:48 AM Ordering Provider: [facility]05-30-2023 Note ORIGINAL EXAMINATION: CTA OF THE CHEST 10/25/2022 12:58 am TECHNIQUE: CTA of the chest was performed after the administration of intravenous contrast. Multiplanar reformatted images are provided for review. MIP images are provided for review. Automated exposure control, iterative reconstruction, and/or weight based adjustment of the mA/kV was utilized to reduce the radiation dose to as low as reasonably achievable. COMPARISON: Chest x-ray on 10/24/2022 HISTORY: ORDERING SYSTEM PROVIDED HISTORY: Reason for Exam: difficulty breathing; suspect PE FINDINGS: Pulmonary Arteries: Pulmonary arteries are adequately opacified for evaluation. No evidence of intraluminal filling defect to suggest pulmonary embolism. Main pulmonary artery is normal in caliber. Mediastinum: The heart is moderately enlarged. No pericardial fluid is present. No coronary artery calcification is detected. Borderline size lymph nodes are present in the aortopulmonic window region and right paratracheal region as well as the subcarinal region. Thoracic aorta is nonaneurysmal with no evidence of aortic dissection. 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 There is more fluid on the right than on the left. There is associated compressive atelectasis in dependent portion of both lower lobes. There is no pneumothorax. No infiltrate suspicious for pneumonia is detected. Upper Abdomen: The liver is nodular in contour without focal abnormality. The spleen is enlarged with AP diameter of 17 cm. Soft Tissues/Bones: No acute bone or soft tissue abnormality. IMPRESSION: No evidence of pulmonary embolism. Cardiomegaly and a small bilateral pleural effusions with mild compressive atelectasis. Vascular congestion is better demonstrated on recent chest x-ray. The findings are consistent with congestive heart failure. Nodular liver with splenomegaly, consistent with cirrhosis. Interpreted by: Darnell Molina MD Preliminary Report By: Darnell Molina MD Electronically signed By Darnell Molina MD Dictated Date: 10/25/2022 1:03:23 AM Prelim Date: 10/25/2022 1:09:48 AM Sign Date: 10/25/2022 1:09:48 AM Ordering Provider: [facility]05-29-2023 Note ORIGINAL EXAMINATION: ONE XRAY VIEW OF THE CHEST 10/24/2022 11:50 pm COMPARISON: None. HISTORY: ORDERING SYSTEM PROVIDED HISTORY: Reason for Exam: chest pain FINDINGS: Exam is limited by patient body habitus. The heart is enlarged. There are diffusely increased interstitial opacities bilaterally. Hazy airspace opacities within the mid to lower lungs bilaterally. No overt central vascular congestion, large pleural effusion or significant appreciable pneumothorax. No acute osseous abnormality. IMPRESSION: Increased interstitial and hazy alveolar airspace opacity bilaterally, predominantly within the mid to lower lungs, may represent pulmonary edema or infectious/inflammatory process. Correlate clinically and continued follow-up is recommended. Interpreted by: Kristi Britton MD Preliminary Report By: Kristi Britton MD Electronically signed By Kristi Britton MD Dictated Date: 10/24/2022 11:53:45 PM Prelim Date: 10/24/2022 11:56:09 PM Sign Date: 10/24/2022 11:56:09 PM Ordering Provider: [facility]05-29-2023 Note ORIGINAL EXAMINATION: ONE XRAY VIEW OF THE CHEST 10/24/2022 11:50 pm COMPARISON: None. HISTORY: ORDERING SYSTEM PROVIDED HISTORY: Reason for Exam: chest pain FINDINGS: Exam is limited by patient body habitus. The heart is enlarged. There are diffusely increased interstitial opacities bilaterally. Hazy airspace opacities within the mid to lower lungs bilaterally. No overt central vascular congestion, large pleural effusion or significant appreciable pneumothorax. No acute osseous abnormality. IMPRESSION: Increased interstitial and hazy alveolar airspace opacity bilaterally, predominantly within the mid to lower lungs, may represent pulmonary edema or infectious/inflammatory process. Correlate clinically and continued follow-up is recommended. Interpreted by: Kristi Britton MD Preliminary Report By: Kristi Britton MD Electronically signed By Kristi Britton MD Dictated Date: 10/24/2022 11:53:45 PM Prelim Date: 10/24/2022 11:56:09 PM Sign Date: 10/24/2022 11:56:09 PM Ordering Provider: [facility]05-28-[address] [facility]ath [facility] October 23, 2022 10:40am Note Date/Time October 23, 2022 6:48a m [facility] Medical Records Department [address] [place] [address] Emergency Department Summary 10/23/22 MR#: [id number] Acct: [id number] Name: SOCORRO KELLEY Jr. Rep #:[id number] : 1970 52 From: Jameel Brown DO PCP: ZACARIAS COHN Status:REG ER Location: ED HPI History of Present Illness Chief Complaint: Chest Pain Narrative Narrative: 52-year-old male presenting with chest pain and shortness of breath. He states he woke up from sleep this morning secondary to acid reflux at about 3 AM. He then states that he woke up again with his chest pounding his heart racing. Patient states he was diagnosed with A-fib about 6 months ago or so. He was puton Xarelto, however he was not put on anything for rate control. He notes that he does have lower extremity edema which is worse since that I did increase his hydrochlorothiazide. He states he sleeps on 3 pillows which is his baseline. He states he cannot lay flat because he gets short of breath. 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 [facility] Medical History (Updated 10/23/22 @ 06:09 by Elma Ospina) Diabetes Glaucoma Gout Hypertension Home Medications allopurinol 100 mg tablet 100 mg PO DAILY 10/23/22 [History Last Taken Unknown] amlodipine 5 mg tablet 5 mg PO DAILY 10/23/22 [History Last Taken Unknown] brimonidine 0.15 % eye drops (Alphagan P) 1 drp EACH EYE QHS 10/23/22 [History Last Taken Unknown] hydrochlorothiazide 50 mg tablet 50 mg PO DAILY 10/23/22 [History Last Taken Unknown] lisinopril 40 mg tablet 40 mg PO DAILY 10/23/22 [History Last Taken Unknown] metformin 500 mg tablet,extended release 24 hr 500 mg PO QPM 10/23/22 [History Last Taken Unknown] omeprazole 40 mg capsule,delayed release 40 mg PO DAILY 10/23/22 [History Last Taken Unknown] timolol maleate 0.25 % eye drops 1 drp EACH EYE DAILY 10/23/22 [History Last Taken Unknown] Allergy/AdvReac Type Severity Reaction Status Date / Time No Known Allergies Allergy Verified 10/23/22 06:01 Social History Smoking Status: Former smoker EXAM Physical Exam Const Vital Signs: 10/23/22 05:58 10/23/22 06:02 10/23/22 06:10 Temperature 97.6 F L Temperature Source Temporal Pulse Rate 109 H Respiratory Rate 14 Respiratory Effort Normal Non-Labored Blood Pressure 158/127 H Blood Pressure Mean 137 Pulse Ox 92 Oxygen Delivery Method Room Air Room Air 10/23/22 06:58 10/23/22 07:05 Temperature Temperature Source Pulse Rate 117 H 95 Respiratory Rate 22 H 22 H Respiratory Effort Blood Pressure 141/99 H 119/91 H Blood Pressure Mean 113 100 Pulse Ox 92 92 Oxygen Delivery Method Room Air Heart Score History: Slightly/Non-Suspicious ECG: Normal Age: >45 - <65 years Risk Factors: >/= 3 Risk Factors or History of CAD Troponin: </= Normal Limit Score: 3 MDM MDM MDM Narrative Medical decision making narrative: Patient presenting with chest pain and shortness of breath. He states has been having runs of atrial fibrillation. He is on Eliquis but states he is not on anything for rate control. He had an echocardiogram performed in July with hiscardiologist which showed a EF of 50 to 55%. Differential includes A-fib, a flutter, CHF, ACS, pneumonia. Patient is stating that he has lower extremity edema, orthopnea. He is given Cardizem 20 mg IV and his heart rate is now [id number]. CBC shows no leukocytosis. Hemoglobin macular stable. Platelets are normal. Renal function electrolytes within normal limits with exception of a potassium of 3.2. High-sensitivity troponin 17. BNP is pending. Second high-sensitivity troponin is also pending. Chest x-ray on my interpretation concerning for CHF. I will have the patient ambulated on pulse ox. He is currently not on any oxygen. Patient will be signed out to incoming ED physician for monitoring. Lab Data Attestation: I reviewed the patient's lab results. Labs: Laboratory Results - last 24 hr 10/23/22 10/23/22 05:43 05:43 WBC 7.9 RBC 6.06 Hgb 17.2 H Hct 54.3 H MCV 89.6 MCH 28.4 MCHC 31.7 L RDW Std Deviation 46.1 H RDW Coeff of Tee 14.1 Plt Count 234 MPV 10.3 Immature Gran % (Auto) 0.300 Neut % (Auto) 67.9 Lymph % (Auto) 19.0 Ward % (Auto) 9.6 Eos % (Auto) 2.4 Baso % (Auto) 0.8 Absolute Neuts (auto) 5.4 Absolute Lymphs (auto) 1.50 Nucleated RBC % 0 Sodium 140 Potassium 3.2 L Chloride 102 Carbon Dioxide 32.0 Anion Gap 6 BUN 11 Creatinine 0.84 Estim Creat Clear Calc 104.04 Est GFR (MDRD) Af Amer 123 Est GFR (MDRD) Non-Af 102 BUN/Creatinine Ratio 13.0 Glucose 126 H Calcium 8.7 Troponin I High Sens 17 Radiography Diagnostic Testing: Clinical Impression(s) from Imaging Studies Chest X-Ray 10/23/22 06:20 IMPRESSION: Cardiomegaly with findings of cardiac decompensation/CHF, including pulmonary venous hypertension and mild pulmonary edema. Electronically Signed: Bentley Odom MD at 6:32 EDT , Discharge Plan Triage Chief Complaint: Chest Pain ED Provider: Jameel Brown Dx/Rx/DC Orders Prescriptions: No Action hydrochlorothiazide 50 mg Tablet 50 mg PO DAILY amlodipine 5 mg Tablet 5 mg PO DAILY allopurinol 100 mg Tablet 100 mg PO DAILY omeprazole 40 mg Capsule,Delayed Release(Dr/Ec) 40 mg PO DAILY timolol maleate 0.25 % Drops 1 drp EACH EYE DAILY lisinopril 40 mg Tablet 40 mg PO DAILY metformin 500 mg Tablet Extended Release 24 Hr 500 mg PO QPM brimonidine [Alphagan P] 0.15 % Drops 1 drp EACH EYE QHS Primary Care Provider: Care Physician,No Primary Referrals: Ollie Bright MD [Non-Staff] - What to do if you have Problems For any increased pain, shortness of breath, bleeding, nausea or vomiting, chestpain, or any unexpected problems, contact your Primary Care Provider. Call [facility] ([phone]) or report to the closest Emergency Room. Call 911 if necessary. 10/23/22 0639 <Electronically signed by Jameel Brown DO> Cosigner Signature (if applicable): CC: ZACARIAS COHN ~ Signed ADDENDUM by Dr. Jose A Clemens MD on 10/23/22 at 0759 Patient care was transferred to co at 0710. Patient presented because of palpitations discomfort right side of his chest with shortness of breath. Patient does have history of congestive heart failure and atrial fibrillation. He has relocated from [place]. 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 Patient has not taken his Xarelto for assess several weeks. He is on no medication for rate control. He does endorse increased swelling of his lower extremities. He denies increased orthopnea. Patient is presently saturating 94% on room air at rest. Chest x-ray does reveal cephalization and findings consistent with congestive heart failure. BNP is elevated. First troponin was normal. Will prescribe Xarelto, Lasix 20 mg IV push and metoprolol for rate control. 10/23/22 0759<Electronically signed by Jose A Clemens MD> Cosigner Signature (if applicable): cc: ZACARIAS COHN ~* Signed ADDENDUM by Dr. Jose A Clemens MD on 10/23/22 at 1040 Repeat troponin is 14 with a delta of -3. Plan is to follow-up with Dr. Parker. Dr. Parker is made aware of patient's history physical and disposition. Patient was prescribed Xarelto, metoprolol and diuretic. He is to contact Dr. Etienne's office on Monday for appointment later this coming week. 10/23/22 1040<Electronically signed by Jose A Clemens MD> Cosigner Signature (if applicable): cc: ZACARIAS COHN ~* Signed [facility] Work Phone: [phone] Hospital Discharge instructions Patient Education 07/15/2022 21:17:24 Dental Pain Dental Pain A crack or cavity in a tooth can cause tooth pain. This is because the crack or cavity exposes the sensitive inner area of the tooth. An infection in the gum or the root of the tooth can cause pain and swelling. The pain is often made worse when you drink hot or cold beverages. It can also be worsewhen you bite on hard foods. Pain may spread from the tooth to your ear or the area of the jaw on the same side. Home care Follow these tips when caring for yourself at home: Don't have hot and cold foods and drinks. Your tooth may be sensitive to changes in temperature. Use toothpaste made for sensitive teeth. [place] gently up and down instead of sideways. Brushing sideways can wear away root surfaces if they are exposed. If your tooth is chipped or cracked, or if there is a large open cavity, put oil of cloves directlyon the tooth to relieve pain. You can buy oil of cloves at [employer]. Some pharmacies carry an gslr-vzt-unwpxdf toothache kit. This contains a paste that you can put on the exposed tooth to make it less sensitive. Put a cold pack on your jaw over the sore area to help reduce pain. You may use icxk-gbj-plhmbrz medicine to ease pain, unless your doctor prescribed another medicine.If you have chronic liver or kidney disease, talk with your healthcare provider before using acetaminophen or ibuprofen. Also talk with your provider if you ve had a stomach ulcer or GI bleeding. If you have signs of an infection, you will be given an antibiotic. Take it as directed. Follow-up care Follow up with your dentist, or as advised. Your pain may go away with the treatment given today. But only a dentist can fully look at and treat the cause of your pain. This will keep the pain from coming back. Call 911 Call 911 if any of these occur: Unusual drowsiness Headache or stiff neck Weakness or fainting Difficulty swallowing or breathing When to seek medical advice Call your health care provider right away if any of these occur: Your face becomes swollen or red Pain gets worse or spreads to your neck Fever of 100.4 F (38.0 C) or higher, or as directed by your healthcare provider Pus drains from the tooth [id number] [employer]. [address] [place] [address], [place] [address]. All rights reserved. This information is not intended as a substitute for professional medical care. Always follow yourhealthcare professional's instructions. Follow Up Care 07/15/2022 20:40:26 With:Dental Referral List Address: When:2-4 days [facility] 02-17-2023 Note Discharge Instructions Thank you for allowing [facility] to assist you with your healthcare needs. The following is importantdischarge information regarding your hospital visit. Diagnosis from Today's Visit Acute periapical abscess Odontalgia Dental pain What to Do Next Instructions from Your Care Team No qualifying data available. Post Acute Orders No qualifying data available. You Need to Schedule the Following Appointments Follow Up with Dental Referral List When Within 2-4 days Where: Allergies NKA Medications Please ask your primary doctor or pharmacist before taking any other medication not listed, including over the counter drugs, herbal medications, vitamins and or supplements as they may interact withyour home medications. What How Much When Why Instructions Last Dose New acetaminophen-hydrocodone ([place] 325- 5 mg oral tablet) 1 tab(s) by mouth Every 6 hours as needed for for pain Acute periapical abscess Odontalgia Duration: 2 Days Printed Prescription New clindamycin (clindamycin 150 mg oral capsule) 2 cap by mouth Every 6 hours Acute periapical abscess Odontalgia Duration: 7 Days Printed Prescription Unchanged allopurinol 500 Milligram by mouth Once a day Unchanged hydroCHLOROthiazide 50 Milligram by mouth Once a day Unchanged lisinopril 40 Milligram by mouth Once a day Please take this list to your next doctor s visit. Bring all medications you take, including over the counter medications, herbals and other supplements with you to your doctor s visit. Patients and families are reminded to discard old lists and to update any records with all medication providers or retail pharmacies. Education Materials Dental Pain A crack or cavity in a tooth can cause tooth pain. This is because the crack or cavity exposes the sensitive inner area of the tooth. An infection in the gum or the root of the tooth can cause pain and swelling. The pain is often made worse when you drink hot or cold beverages. It can also be worsewhen you bite on hard foods. Pain may spread from the tooth to your ear or the area of the jaw on the same side. Home care Follow these tips when caring for yourself at home: Don't have hot and cold foods and drinks. Your tooth may be sensitive to changes in temperature. Use toothpaste made for sensitive teeth. [place] gently up and down instead of sideways. Brushing sideways can wear away root surfaces if they are exposed. If your tooth is chipped or cracked, or if there is a large open cavity, put oil of cloves directlyon the tooth to relieve pain. You can buy oil of cloves at drugstores. Some pharmacies carry an alsx-lpz-fpuhvll toothache kit. This contains a paste that you can put on the exposed tooth to make it less sensitive. Put a cold pack on your jaw over the sore area to help reduce pain. You may use uert-vcm-lfsevlv medicine to ease pain, unless your doctor prescribed another medicine.If you have chronic liver or kidney disease, talk with your healthcare provider before using acetaminophen or ibuprofen. Also talk with your provider if you ve had a stomach ulcer or GI bleeding. If you have signs of an infection, you will be given an antibiotic. Take it as directed. Follow-up care Follow up with your dentist, or as advised. Your pain may go away with the treatment given today. But only a dentist can fully look at and treat the cause of your pain. This will keep the pain from coming back. Call 911 Call 911 if any of these occur: Unusual drowsiness Headache or stiff neck Weakness or fainting Difficulty swallowing or breathing When to seek medical advice Call your health care provider right away if any of these occur: Your face becomes swollen or red Pain gets worse or spreads to your neck Fever of 100.4 F (38.0 C) or higher, or as directed by your healthcare provider Pus drains from the tooth [id number] [employer]. [address] [place] [address]. All rights reserved. This information is not intended as a substitute for professional medical care. Always follow yourhealthcare professional's instructions. Additional Information VACCINATE! IT SAVES LIVES! Members of the community who have not yet received the COVID-19 vaccine and would like to receive it can visit one of [facility] vaccine clinics. There are many vaccine clinic locations within the [facility]. For locations and available times, please visit www.gettheshot.coronavirus.[place].gov/. It is important to note that some COVID mobile vaccine clinics are held outdoors and may be canceled in rainy or stormy conditions. To learn more about pediatric vaccinations (ages 5-11), we invite you to visit the [facility] webpage. [email or web address]/pages/[email or web address]-Fyvmr-Map stions.htmlTo learn more about the COVID-19 vaccine, we invite you to visit the CDC website for a list of frequently asked questions. https://www.cdc.gov/coronavirus/2019-ncov/vaccines/faq.html [facility] Patient Portal Access Instructions: Stay connected with your healthcare team and access your personal medical information anytime with the [facility] Patient Portal. If you would like a full copy of your medical records please contact the [facility] Medical Records Department Monday through Monday between 8a.m. and 4:30p.m. Please follow the directions below to access the portal: 1.Access the email account you provided upon registration to the [facility].2.Look for an invitation email from [facility].3.Open the email and access the invitation link: Accept Invitation to [facility].Fill in the required orr to create your account. Sign into [email or web address] with your username and password that you created in the above steps to stay up to date. You can then view a summary of results, a summary of your visits, and the ability to download your summaries to your computer or send the information securely to a physician. Remember that your healthcare information is confidential, so carefully consider who you will allow to register on the [facility] Patient Portal for access to your information. You can also access the [facility] Patient Portal on the [employer]. Simply click on Health Records under [employer] and then click on the [employer] logo. HOW TO SAFELY DISPOSE OF PRESCRIPTION MEDICATIONS Please use one of the following methods to safely dispose of your unused medications. 1.Use a drug disposal kit: the drug disposal pouch allows you to safely discard your old and unuseddrugs. Ask your nurse to give you one when you are discharged.2.Visit a local take-back location: Many local pharmacies and police departments have programs that collect old and unwanted prescriptiondrugs. Call your local pharmacy or go to http://bit.ly/2O5Tn6f to find one close to you.3.Make use of household items: Use cat litter or old coffee grounds to dispose medications if other options arenot available. Mix your drugs with these household products, seal them in an airtight container andthrow it into the garbage. Call [facility]: [phone] to be sure your drugs can be disposed of in this way. Some medicines may require a different approach.4.Never flush your medications down the toilet. IF YOU HAVE BEEN PRESCRIBED AN OPIOIDS FOR PAIN If you have been prescribed an opioid (such as hydrocodone, oxycodone or morphine), it is critical to understand the possible side effects and risks of opioid pain medications. Even when taken as directed, opioids can have several side effects including: Tolerance, meaning you might need to take more of a medication for the same pain relief. Nausea, vomiting and/or constipation. Sleepiness, dizziness, dry mouth, confusion, depression or itching. Physical dependence, meaning you have withdrawal symptoms when a medication is stopped ? this can develop within a few days. KNOW YOUR RESPONSIBILITIES It is important to know exactly how much and how often to take the opioid pain medications you are prescribed. Never take opioids in higher amounts or more often than prescribed. Do not combine opioids with alcohol or other drugs that cause drowsiness, such as benzodiazepines, also known as benzos,including diazepam and alprazolam, muscle relaxants or sleep aids. Never sell or share prescriptionopioids. This is illegal. Store opioids in a secure place and out of reach of others (including children, family, friends and visitors). The last page(s) of this document has been signed and retained as a CHART COPY Signatures Patient Education Materials Dental Pain Medication Leaflets My discharge plan and instructions have been reviewed and explained to me and I,SOCORRO KELLEY understand my current condition and have read and understand these discharge instructions. I have received awritten copy of the plan/instructions. If I have questions, I am aware that I should contact my doctor. Patient/Dealer Support Technician Signature: Date/Time: Relationship to Patient: Witness Name/Signature: Date/Time: [facility]2023 Hospital Discharge instructions Patient Education 07/11/2022 09:00:28 Wrist Sprain Wrist Sprain A sprain is an injury to the ligaments or capsule that holds a joint together. There are no broken bones. Most sprains take about 3 to 6 weeks to heal. If it a severe sprain where the ligament is completely torn, it can take months to recover. Most wrist sprains are treated with a splint, wrist brace, or elastic wrap for support. Severe sprains may require surgery. Home care Keep your arm elevated to reduce pain and swelling. This is very important during the first 48 hours. Apply an ice pack over the injured area for 15 to 20 minutes every 3 to 6 hours. You should do thisfor the first 24 to 48 hours. You can make an ice pack by filling a plastic bag that seals at the top with ice cubes and then wrapping it with a thin towel. Continue to use ice packs for relief of pain and swelling as needed. As the ice melts, be careful to avoid getting your wrap, splint, or cast wet. After 48 hours, apply heat (warm shower or warm bath) for 15 to 20 minutes several times a day,or alternate ice and heat. You may use iuaj-lvj-cnrndng pain medicine to control pain, unless another pain medicine was prescribed. If you have chronic liver or kidney disease or ever had a stomach ulcer or gastrointestinal bleeding, talk with your doctor before using these medicines. If you were given a splint or brace, wear it for the time advised by your doctor. Follow-up care Follow up with your healthcare provider, or as advised. Any X-rays you had today don t show any broken bones, breaks, or fractures. Sometimes fractures don t show up on the first X-ray. Bruises and sprains can sometimes hurt as much as a fracture. These injuries can take time to heal completely. Ifyour symptoms don t improve or they get worse, talk with your doctor. You may need a repeat X-ray. I f X-rays were taken, you will be told of any new findings that may affect your care. When to seek medical advice Call your healthcare provider right away if any of these occur: Pain or swelling increases Fingers or hand becomes cold, blue, numb, or tingly [id number] [employer]. [address] [place] [address]. All rights reserved. This information is not intended as a substitute for professional medical care. Always follow yourhealthcare professional's instructions. Follow Up Care 07/11/2022 08:20:34 With:DO MELISSA COHN DO Address: [address] [place] [phone] When:3-7 days With:Go to emergency room if symptoms worsen Address:Unknown When:2-4 days [facility] 02-13-2023 Note Discharge Instructions Thank you for allowing [facility] to assist you with your healthcare needs. The following is importantdischarge information regarding your hospital visit. Diagnosis from Today's Visit Wrist sprain Wrist pain-swelling What to Do Next Instructions from Your Care Team Discharge Home Equipment - Ordered -- Splint, wrist, 1 month(s), 07/11/22 8:59:00 EST Post Acute Orders No qualifying data available. You Need to Schedule the Following Appointments Follow Up with DO MELISSA COHN DO When Within 3-7 days Where: [address] [place] [phone] Follow Up with Go to emergency room if symptoms worsen When Within 2-4 days Allergies NKA Medications Please ask your primary doctor or pharmacist before taking any other medication not listed, including over the counter drugs, herbal medications, vitamins and or supplements as they may interact withyour home medications. What How Much When Why Instructions Last Dose New naproxen (naproxen 500 mg oral tablet) 1 tab(s) by mouth Two (2) times a day Wrist sprain Printed Prescription Unchanged allopurinol 500 Milligram by mouth Once a day Unchanged hydroCHLOROthiazide 50 Milligram by mouth Once a day Unchanged lisinopril 40 Milligram by mouth Once a day Please take this list to your next doctor s visit. Bring all medications you take, including over the counter medications, herbals and other supplements with you to your doctor s visit. Patients and families are reminded to discard old lists and to update any records with all medication providers or retail pharmacies. Education Materials Wrist Sprain A sprain is an injury to the ligaments or capsule that holds a joint together. There are no broken bones. Most sprains take about 3 to 6 weeks to heal. If it a severe sprain where the ligament is completely torn, it can take months to recover. Most wrist sprains are treated with a splint, wrist brace, or elastic wrap for support. Severe sprains may require surgery. Home care Keep your arm elevated to reduce pain and swelling. This is very important during the first 48 hours. Apply an ice pack over the injured area for 15 to 20 minutes every 3 to 6 hours. You should do thisfor the first 24 to 48 hours. You can make an ice pack by filling a plastic bag that seals at the top with ice cubes and then wrapping it with a thin towel. Continue to use ice packs for relief of pain and swelling as needed. As the ice melts, be careful to avoid getting your wrap, splint, or cast wet. After 48 hours, apply heat (warm shower or warm bath) for 15 to 20 minutes several times a day,or alternate ice and heat. You may use ujqy-wrv-bmyezwy pain medicine to control pain, unless another pain medicine was prescribed. If you have chronic liver or kidney disease or ever had a stomach ulcer or gastrointestinal bleeding, talk with your doctor before using these medicines. If you were given a splint or brace, wear it for the time advised by your doctor. Follow-up care Follow up with your healthcare provider, or as advised. Any X-rays you had today don t show any broken bones, breaks, or fractures. Sometimes fractures don t show up on the first X-ray. Bruises and sprains can sometimes hurt as much as a fracture. These injuries can take time to heal completely. Ifyour symptoms don t improve or they get worse, talk with your doctor. You may need a repeat X-ray. I f X-rays were taken, you will be told of any new findings that may affect your care. When to seek medical advice Call your healthcare provider right away if any of these occur: Pain or swelling increases Fingers or hand becomes cold, blue, numb, or tingly [phone] [employer]. [address] [place] [address], [place] [address]. All rights reserved. This information is not intended as a substitute for professional medical care. Always follow yourhealthcare professional's instructions. Additional Information VACCINATE! IT SAVES LIVES! Members of the community who have not yet received the COVID-19 vaccine and would like to receive it can visit one of [facility] vaccine clinics. There are many vaccine clinic locations within the [facility]. For locations and available times, please visit [email or web address]. It is important to note that some COVID mobile vaccine clinics are held outdoors and may be canceled in rainy orstormy conditions. To learn more about pediatric vaccinations (ages 5-11), we invite you to visit the [facility] webpage. [email or web address] learn more about the COVID-19 vaccine, we invite you to visit the [facility] website for a list of frequently asked questions. [email or web address].pdf [facility] Patient Portal Access Instructions: Stay connected with your healthcare team and access your personal medical information anytime with the [facility] Patient Portal. If you would like a full copy of your medical records please contact the [facility] Medical Records Department Monday through Monday between 8a.m. and 4:30p.m. Please follow the directions below to access the portal: 1.Access the email account you provided upon registration to the hospital.2.Look for an invitation email from [facility].3.Open the email and access the invitation link: Accept Invitation to [facility]4.Fill in the required orr to create your account. Sign into [email or web address] with your username and password that you created in the above steps to stay up to date. You can then view a summary of results, a summary of your visits, and the ability to download your summaries to your computer or send the information securely to a physician. Remember that your healthcare information is confidential, so carefully consider who you will allow to register on the [facility] Patient Portal for access to your information. You can also access the [facility] Patient Portal on the [employer]. Simply click on Health Records under [employer] and then click on the [employer] logo. HOW TO SAFELY DISPOSE OF PRESCRIPTION MEDICATIONS Please use one of the following methods to safely dispose of your unused medications. 1.Use a drug disposal kit: the drug disposal pouch allows you to safely discard your old and unuseddrugs. Ask your nurse to give you one when you are discharged.2.Visit a local take-back location: Many local pharmacies and police departments have programs that collect old and unwanted prescriptiondrugs. Call your local pharmacy or go to http://[employer]/8D0Ml6c to find one close to you.3.Make use of household items: Use cat litter or old coffee grounds to dispose medications if other options arenot available. Mix your drugs with these household products, seal them in an airtight container andthrow it into the garbage. Call [facility]: [phone] to be sure your drugs can be disposed of in this way. Some medicines may require a different approach.4.Never flush your medications down the toilet. IF YOU HAVE BEEN PRESCRIBED AN OPIOIDS FOR PAIN If you have been prescribed an opioid (such as hydrocodone, oxycodone or morphine), it is critical to understand the possible side effects and risks of opioid pain medications. Even when taken as directed, opioids can have several side effects including: Tolerance, meaning you might need to take more of a medication for the same pain relief. Nausea, vomiting and/or constipation. Sleepiness, dizziness, dry mouth, confusion, depression or itching. Physical dependence, meaning you have withdrawal symptoms when a medication is stopped ? this can develop within a few days. KNOW YOUR RESPONSIBILITIES It is important to know exactly how much and how often to take the opioid pain medications you are prescribed. Never take opioids in higher amounts or more often than prescribed. Do not combine opioids with alcohol or other drugs that cause drowsiness, such as benzodiazepines, also known as benzos,including diazepam and alprazolam, muscle relaxants or sleep aids. Never sell or share prescriptionopioids. This is illegal. Store opioids in a secure place and out of reach of others (including children, family, friends and visitors). The last page(s) of this document has been signed and retained as a CHART COPY Signatures Patient Education Materials Wrist Sprain Medication Leaflets My discharge plan and instructions have been reviewed and explained to me and WARREN Hopper RAY J understand my current condition and have read and understand these discharge instructions. I have received awritten copy of the plan/instructions. If I have questions, I am aware that I should contact my doctor. Patient/Dealer Support Technician Signature: Date/Time: Relationship to Patient: Witness Name/Signature: Date/Time: [facility]02-13-2023 Note ORIGINAL EXAMINATION: THREE XRAY VIEWS OF THE RIGHT WRIST 07/11/2022 8:47 am COMPARISON: None. HISTORY: ORDERING SYSTEM PROVIDED HISTORY: Reason for Exam: pain status post injury. FINDINGS: No acute fracture or dislocation. Tiny focus of ossification projecting radially at the 1st metacarpal head is likely sequela of remote injury. Normal osseous mineralization. No visible aggressive osseous lesion. Mild degenerative changes are present of the 1st ray and also including the triscaphe articulation. Otherwise, included joint spaces are maintained. Carpal arcs are normal. Mild soft tissue swelling suspected of the dorsum of the hand at the level the metacarpals. No visible radiopaque foreign body. IMPRESSION: 1. No acute osseous abnormalities. 2. Mild osteoarthrosis. 3. Suspect mild soft tissue swelling dorsally at the level of the metacarpals. Interpreted by: Raad Jameson DO Preliminary Report By: Raad Jameson DO Electronically signed By Raad Jameson DO Dictated Date: 07/11/2022 8:49:57 AM Prelim Date: 07/11/2022 8:51:46 AM Sign Date: 07/11/2022 8:51:46 AM Ordering Provider: MALORIE PEGUERO [facility]02-13-2023 Note ORIGINAL EXAMINATION: THREE XRAY VIEWS OF THE RIGHT WRIST 07/11/2022 8:47 am COMPARISON: None. HISTORY: ORDERING SYSTEM PROVIDED HISTORY: Reason for Exam: pain status post injury. FINDINGS: No acute fracture or dislocation. Tiny focus of ossification projecting radially at the 1st metacarpal head is likely sequela of remote injury. Normal osseous mineralization. No visible aggressive osseous lesion. Mild degenerative changes are present of the 1st ray and also including the triscaphe articulation. Otherwise, included joint spaces are maintained. Carpal arcs are normal. Mild soft tissue swelling suspected of the dorsum of the hand at the level the metacarpals. No visible radiopaque foreign body. IMPRESSION: 1. No acute osseous abnormalities. 2. Mild osteoarthrosis. 3. Suspect mild soft tissue swelling dorsally at the level of the metacarpals. Interpreted by: Raad Jameson DO Preliminary Report By: Raad Jameson DO Electronically signed By Raad Jameson DO Dictated Date: 07/11/2022 8:49:57 AM Prelim Date: 07/11/2022 8:51:46 AM Sign Date: 07/11/2022 8:51:46 AM Ordering Provider: [facility]09-12-[address] [place] [address] PERSONAL HISTORY AND PHYSICAL : [phone] Signed Name: WARRENAnali SENIORSOCORRO [facility]#: [id number] MRUN: [id number] : 1970 Loc: ENDO Age / Sex: 51/ M Adm Status: [facility] Adm Date:02/15/22 Room/Bed: A 51-year-old patient of [facility] in [place], who comes to discuss endoscopy. He has pretty severe reflux with chest pain and occasional food getting stuck. He has not had a colonoscopy and needs one. PAST MEDICAL HISTORY: GERD, anxiety, atrial fibrillation on anticoagulants, diabetes, hypertension. MEDICINE: Lisinopril, hydrochlorothiazide, Prevacid, Zoloft, Xarelto, metformin. ALLERGIES: NONE. SOCIAL HISTORY: Patient rubs snuff. PHYSICAL EXAMINATION: VITAL SIGNS: Weight 355 pounds. HEENT: Unremarkable. CHEST: Clear. CARDIOVASCULAR: Regular rate and rhythm. ABDOMEN: Soft, nontender. NEUROLOGIC: Unremarkable. EXTREMITIES: Unremarkable. IMPRESSION: Refractory gastroesophageal reflux disease and a need for initial screening colonoscopy. I discussed the risks, benefits, complications, and alternatives. He gives consent. I gave him several days in February and he will follow up with us for the appropriate day. Dictated By: Melissa Aayla MD 02/24/22 0847 Dictated Date/Time: 02/07/22 1659 Transcribed Date/Time: 02/07/22 1716[facility] Consult note* CIRILO MCDONOUGH DO: PERFORM, SIGN, VERIFY Event Display: Anesthesiology Consultation Authored Date: Patient: SOCORRO KELLEY Age: 53 years Sex: Male : 1970 Associated Diagnoses: None Author: CIRILO MCDONOUGH DO Preoperative Information Greater than 6 hours Anesthesia history Patient's history: negative. Family's history: negative. Review of Systems Ear/Nose/Mouth/Throat: Negative except as documented in history of present illness. Respiratory: Negative except as documented in history of present illness. Cardiovascular: Negative except as documented in history of present illness. Gastrointestinal: Negative except as documented in history of present illness. Genitourinary: Negative except as documented in history of present illness. Endocrine: Negative except as documented in history of present illness. Musculoskeletal: Negative except as documented in history of present illness. Integumentary: Negative except as documented in history of present illness. Neurologic: Negative except as documented in history of present illness. Health Status Allergies: Allergic Reactions (Selected) NKA, Allergies (1) ActiveSeverityReaction NKANone Documented Current medications: (Selected) Inpatient Medications Ordered Dextrose 50% IV Push: Start: 01/31/24 15:24:00 EDT, Dose = 12.5 gram(s), = 25 mL, IV Push, AsDirected, PRN, Hypoglycemia, 01/31/24 15:24:00 EDT FLUoxetine: Start: 02/01/24 9:00:00 EDT, Dose = 20 mg, = 1 cap(s), Oral, qDay, 02/01/24 9:00:00 EDT Heparin HBW CARDIAC Bolus 5000 units/mL: Start: 01/31/24 3:15:00 EDT, Dose = 4,000 unit(s), = 0.8 mL, IV Push, q6h, PRN, Protocol, Weight Based Heparin, 01/31/24 3:15:00 EDT Heparin for IV 25,000 unit(s) [6.71 unit(s)/kg/hr] + Dextrose 5% Premix Diluent 250 mL: Start: 01/31/24 3:15:00 EDT, Rate: 10 mL/hr, 01/31/24 3:15:00 EDT PHARMACY TO DOSE: Start: 01/31/24 15:24:00 EDT, Daily, 23 hour(s), Stop: 02/01/24 9:00:00 EDT, Pharmacy to manage Vancomycin, 01/31/24 15:24:00 EDT Tikosyn: Start: 01/31/24 18:00:00 EDT, Dose = 250 mcg, = 1 cap(s), Oral, BID, 0, 01/31/24 18:00:00 EDT Toprol-XL: Start: 01/31/24 8:44:00 EDT, Dose = 100 mg, = 1 tab(s), Oral, BID, 0, 01/31/24 8:44:00 EDT albuterol 2.5 mg/3 mL (0.083%) inhalation solution: Start: 02/01/24 7:01:00 EDT, Dose = 2.5 mg, = 3mL, Inhalation, QIDRT, 0, 01/31/24 22:42:00 EDT allopurinol: Start: 01/31/24 22:44:00 EDT, Dose = 100 mg, = 1 tab(s), Oral, qDay, 0, 01/31/24 22:43:00 EDT budesonide 0.25 mg/2 mL inhalation suspension: Start: 01/31/24 7:01:00 EDT, Dose = 0.25 mg, = 2 mL,Inhalation, BIDRT, 01/31/24 3:31:00 EDT cefTRIAXone: Start: 02/01/24 0:00:00 EDT, Dose = 2 gram(s), = 20 mL, IV Push (INT), qDay, Rate: 240mL/hr, Infuse over: 5 minute(s), 0, 01/31/24 3:16:00 EDT codeine-guaifenesin 10 mg-100 mg/5 mL oral syrup: Start: 01/31/24 3:14:00 EDT, Dose = 10 mL, UD Cup, Oral, q4h, PRN, Cough, 0, 01/31/24 3:14:00 EDT metoprolol tartrate 1 mg/mL injectable solution: Start: 01/31/24 3:33:00 EDT, Dose = 5 mg, = 5 mL, IV Push, q3h, PRN, Systolic BP: See order comments, 0, 01/31/24 3:33:00 EDT omeprazole: Start: 01/31/24 22:36:00 EDT, Dose = 40 mg, = 1 cap(s), Oral, BID, 0, 01/31/24 22:35:00EDT rosuvastatin: Start: 01/31/24 22:36:00 EDT, Dose = 20 mg, = 1 tab(s), Oral, Daily, 0, 01/31/24 22:35:00 EDT traZODone: Start: 01/31/24 22:37:00 EDT, Dose = 100 mg, = 1 tab(s), Oral, qHS, 0, 01/31/24 22:35:00EDT Prescriptions Prescribed Blood Glucose Test Machine: See Instructions, Use glucometer daily as directed for blood sugar checks. Dispense insurance preferred device, # 1 EA, 0 Refill(s), Pharmacy: [facility], 177.8, cm, 11/28/23 13:54:00 EDT, Height, 151.4, kg, 11/28/23 13:54:00 EDT, Dosin... Blood Glucose Test Strips: See Instructions, 1 bottle of 100 Test once daily, # 1 EA, 11 Refill(s), Pharmacy: [facility], 177.8, cm, 11/28/23 13:54:00 EDT, Height, 151.4, kg, 11/28/23 13:54:00 EDT, Dosing Weight FLUoxetine 20 mg oral capsule: Dose : 20 mg = 1 cap(s), Oral, qDay, # 30 cap(s), 3 Refill(s), Pharmacy: [facility], 177.8, cm, 11/28/23 13:54:00 EDT, Height, kg, 11/28/23 13:54:00 EDT,Dosing Weight Lancets: See Instructions, qs 1 month supply Test once daily, # 1 EA, 11 Refill(s), Pharmacy: [facility], 177.8, cm, 11/28/23 13:54:00 EDT, Height, 151.4, kg, 11/28/23 13:54:00 EDT, Dosing Weight Lasix 40 mg oral tablet: See Instructions, 1 tab in AM and 0.5 tab in PM, # 135 tab(s), 3 Refill(s), Pharmacy: [facility], 177.8, cm, 11/28/23 13:54:00 EDT, Height, kg, 11/28/23 13:54:00 EDT, Dosing Weight Symbicort 80 mcg-4.5 mcg/inh Inhaler: Dose = 2 puff(s), Inhalation, BID, # 10.2 gram(s), 3 Refill(s), Pharmacy: [facility], 177.8, cm, 11/28/23 13:54:00 EDT, Height, kg, 11/28/23 13:54:00 EDT, Dosing Weight Tikosyn 250 mcg oral capsule: Dose : 250 mcg = 1 cap(s), Oral, BID, # 180 cap(s), 3 Refill(s), Pharmacy: [facility]/pharmacy #[id number], 177.8, cm, 11/28/23 13:54:00 EDT, Height, kg, 11/28/23 13:54:00 EDT, Dosing Weight Toprol-XL 100 mg oral tablet, extended release: Dose : 100 mg = 1 tab(s), Oral, BID, do not crush or chew, # 180 tab(s), 3 Refill(s), Pharmacy: [facility], Shortness of breath, 177.8, cm, 11/28/23 13:54:00 EDT, Height, kg, 11/28/23 13:54:00 EDT, Dosing Weight Trulicity Pen 1.5 mg/0.5 mL subcutaneous solution: Dose : 1.5 mg =, Subcutaneous, qWeek, sent in absence of PCP, # 4 EA, 3 Refill(s), Pharmacy: [facility], 177.8, cm, 11/28/23 13:54:00EDT, Height, kg, 11/28/23 13:54:00 EDT, Dosing Weight Vistaril 25 mg oral capsule: Dose : 25 mg = 1 cap(s), Oral, QID, PRN as needed for anxiety, X 30 day(s), # 120 cap(s), 5 Refill(s), 06/09/24 16:10:00 EST, Pharmacy: [facility], 177.8, cm, 11/28/23 13:54:00 EDT, Height, kg, 11/28/23 13:54:00 EDT, Dosing Weight Xarelto 20 mg oral tablet: Dose : 20 mg = 1 tab(s), Oral, qHS, # 90 tab(s), 3 Refill(s), Pharmacy: [facility], 177.8, cm, 11/28/23 13:54:00 EDT, Height, 151.4, kg, 11/28/23 13:54:00 EDT, Dosing Weight allopurinol 100 mg oral tablet: Dose : 100 mg = 1 tab(s), Oral, qDay, # 90 tab(s), 3 Refill(s), Pharmacy: [facility], 177.8, cm, 11/28/23 13:54:00 EDT, Height, kg, 11/28/23 13:54:00 EDT, Dosing Weight cetirizine 10 mg oral tablet: Dose : 10 mg = 1 tab(s), Oral, Daily, # 90 tab(s), 3 Refill(s), Pharmacy: [facility], 177.8, cm, 11/28/23 13:54:00 EDT, Height, kg, 11/28/23 13:54:00 EDT,Dosing Weight nystatin 100,000 units/g topical cream: Apply 1 frida, Topical, BID, X 10 day(s), # 30 gram(s), 1 Refill(s), Pharmacy: [facility]/pharmacy #[id number], Cream, 177, cm, 01/12/24 9:42:00 EDT, Height, 148.6, kg, 01/12/24 9:42:00 EDT, Dosing Weight omeprazole 40 mg oral delayed release capsule: Dose : 40 mg = 1 cap(s), Oral, BID, before a meal., # 180 cap(s), 3 Refill(s), Pharmacy: [facility], 177.8, cm, 11/28/23 13:54:00 EDT, Height, kg, 11/28/23 13:54:00 EDT, Dosing Weight rosuvastatin 20 mg oral tablet: Dose : 20 mg = 1 tab(s), Oral, Daily, # 100 tab(s), 3 Refill(s), Pharmacy: [facility], 177.8, cm, 11/28/23 13:54:00 EDT, Height, kg, 11/28/23 13:54:00 EDT, Dosing Weight sacubitril-valsartan 49 mg-51 mg oral tablet: Dose = 1 tab(s), Oral, BID, # 180 tab(s), 3 Refill(s), Pharmacy: [facility], 177.8, cm, 11/28/23 13:54:00 EDT, Height, kg, 11/28/23 13:54:00 EDT, Dosing Weight spironolactone 25 mg oral tablet: Dose : 25 mg = 1 tab(s), Oral, qDay, # 90 tab(s), 3 Refill(s), Pharmacy: [facility], 177.8, cm, 11/28/23 13:54:00 EDT, Height, kg, 11/28/23 13:54:00 EDT, Dosing Weight tiZANidine 2 mg oral tablet: Dose : 2 mg = 1 tab(s), Oral, q8h, PRN as needed for muscle spasm, # 90 tab(s), 2 Refill(s), Pharmacy: [facility], 177.8, cm, 11/28/23 13:54:00 EDT, Height, kg, 11/28/23 13:54:00 EDT, Dosing Weight traZODone 100 mg oral tablet: Dose : 100 mg = 1 tab(s), Oral, qHS, # 90 tab(s), 3 Refill(s), Pharmacy: [facility], 177.8, cm, 11/28/23 13:54:00 EDT, Height, kg, 11/28/23 13:54:00 EDT, Dosing Weight Documented Medications Documented Tylenol: Oral, PRN as needed for pain, 0 Refill(s), Medications (16) Active Scheduled: (11) albuterol 0.083% Soln UD (2.5mg/3 mL) 2.5 mg 3 mL, Inhalation, QIDRT allopurinol 100 mg tablet 100 mg 1 tab(s), Oral, qDay budesonide 0.25 mg/2 mL Susp UD 0.25 mg 2 mL, Inhalation, BIDRT cefTRIAXone IVP syringe 2 gram(s) 20 mL, IV Push (INT), qDay dofetilide 250 mcg capsule 250 mcg 1 cap(s), Oral, BID fluoxetine 20 mg Capsule 20 mg 1 cap(s), Oral, qDay metoprolol succinate 100 mg ER tablet 100 mg 1 tab(s), Oral, BID omeprazole [address] capsule 40 mg 1 cap(s), Oral, BID Pharmacy To Dose 1 EA, Miscellaneous, Daily rosuvastatin 20 mg tablet 20 mg 1 tab(s), Oral, Daily traZODONE 100 mg Tablet 100 mg 1 tab(s), Oral, qHS Continuous: (1) heparin 25,000 unit(s) [6.71 unit(s)/kg/hr] + Dextrose 5% Premix Diluent 250 mL 250 mL, Intravenous, 10 mL/hr PRN: (4) codeine-guaifenesin 10 mg-100 mg/5 mL Syrup UD 5 mL 10 mL, Oral, q4h dextrose 50% Solution Disp syringe 50 mL 12.5 gram(s) 25 mL, IV Push, AsDirected heparin 5,000 units/mL (1 mL) vial 4,000 unit(s) 0.8 mL, IV Push, q6h metoprolol 1 mg/mL (5mL) vial 5 mg 5 mL, IV Push, q3h Problem list: Medical Asthma exacerbation / SNOMED CT 9319289703 / Confirmed Anxiety / SNOMED CT 02241299 / Confirmed Atopic dermatitis / SNOMED CT 71712909 / Confirmed BMI 45.0-49.9, adult / SNOMED CT 8649124416 / Confirmed Cardiomyopathy / SNOMED CT 689077593 / Confirmed Diabetes mellitus / SNOMED CT 752363104 / Confirmed Generalized anxiety disorder / SNOMED CT 72393055 / Confirmed Hyperlipidemia / SNOMED CT 28166805 / Confirmed Hypertension / SNOMED CT 8253162831 / Confirmed Insomnia / SNOMED CT 688373391 / Confirmed Moderate asthma / SNOMED CT 0478693401 / Confirmed Morbid obesity / SNOMED CT 155175023 / Confirmed Chewing tobacco nicotine dependence / SNOMED CT 62743159 / Confirmed Obstructive sleep apnea / SNOMED CT 410044795 / Confirmed Right knee pain / SNOMED CT 5235732925 / Confirmed Paroxysmal atrial fibrillation / SNOMED CT 014808008 / Confirmed Screening for ischemic heart disease / SNOMED CT 552555856 / Confirmed Screening for colon cancer / SNOMED CT 737604425 / Confirmed Prediabetes / SNOMED CT 2100578316 / Confirmed Right flank pain / SNOMED CT 082923759 / Confirmed Type 2 diabetes mellitus with hemoglobin A1c goal of less than 7.0% / SNOMED CT 882432658 / Confirmed Wheezing / SNOMED CT 59793252 / Confirmed, Active Problems (26) Anxiety Asthma exacerbation Atopic dermatitis Atrial fibrillation BMI 45.0-49.9, adult Cardiomyopathy Chewing tobacco nicotine dependence Diabetes mellitus Generalized anxiety disorder GERD (gastroesophageal reflux disease) Gout HTN (hypertension) Hyperlipidemia Hypertension Insomnia Moderate asthma Morbid obesity Obstructive sleep apnea Paroxysmal atrial fibrillation Prediabetes Right flank pain Right knee pain Screening for colon cancer Screening for ischemic heart disease Type 2 diabetes mellitus with hemoglobin A1c goal of less than 7.0% Wheezing Histories Past Medical History: No active or resolved past medical history items have been selected or recorded. Family History: Cancer Father Heart disease Mother Grandparent Stroke Father Procedure history: Cardioversion ([id number]) on 12/23/2022 at 52 Years. Echocardiogram ([id number]) on 11/11/2022 at 52 Years. Comments: 03/20/2023 17:58 Ella Flood MA (ABR-OE) 1. Left ventricle: The cavity size is at the upper limits of normal. Wall thickness is moderately to severely increased. Systolic function is moderately to severely reduced. The estimated ejection fraction is 30-35%. Diastolic dysfunction present but unable to assess severity. 2. Ventricular septum: Septal motion is dyssynergic. 3. Mitral valve: There is mild regurgitation. 4. Left atrium: The atrium is severely dilated. 5. Right ventricle: The cavity size is mildly increased. The RV systolic pressure by Doppler is 40 mm Hg. 6. Right atrium: The atrium is dilated. The estimated right atrial pressure is 15 mm Hg Elbow ([id number]). Comments: 07/11/2022 8:26 SHAHEEN Nunez - right Social History: Social & Psychosocial Habits Alcohol 01/12/2024 Use: Past Substance Abuse 01/12/2024 Use: Never Tobacco 01/12/2024 Tobacco Use: Former smoker, quit more 01/12/2024 Tobacco Use: Former smoker, quit more, former chewer of tobacco Type: Oral (Snuff, Chew) Smokeless tobacco use: Former smokeless tobacco, stopped snuff October 2022 Nutrition/Health 01/12/2024 Caffeine intake amount: pop 3 daily Physical Examination General: Alert and oriented. Airway: Normal temporomandibular joint mobility, Normal mouth, Normal throat, Normal neck range of motion, Trachea midline. Mallampati classification: II (soft palate, fauces, uvula visible). Head: Normocephalic. Dentition Evaluation: Intact, Own teeth, Denies loose/chipped teeth. Neck: Supple. Respiratory: Lungs are clear to auscultation, Respirations are non-labored. Cardiovascular: Normal rate, No murmur. Heart Sounds: Normal. Gastrointestinal: Soft. Musculoskeletal Normal range of motion. Integumentary: Intact, Warm, Dry. Neurologic: Alert, Oriented. Review / Management Results review: Lab results 02/01/2024 5:57 EDT Electrocardiogram - EKG - CV Completed (In Progress) 02/01/2024 5:42 EDT heparin Begin Bag 2.5 mL unit(s) Dextrose 5% Premix Diluent Begin Bag 250 mL mL 02/01/2024 3:57 EDT WBC 6.9 10^3/mcL RBC 5.02 10^6/mcL Hgb 13.0 G/dL Hct 40.5 % MCV 80.6 fL LOW MCH 26.0 pg LOW MCHC 32.2 G/dL RDW 16.2 % HI Platelet 161 10^3/mcL MPV 6.8 fL Neutrophil % 68.7 % Lymphocyte % 19.9 % LOW Monocyte % 9.4 % Eosinophil % 1.2 % Basophil % 0.8 % Neutrophil, Absolute 4.8 10^3/mcL Lymphocyte, Absolute 1.4 10^3/mcL Monocyte, Absolute 0.7 10^3/mcL Eosinophil, Absolute 0.1 10^3/mcL Basophil, Absolute 0.1 10^3/mcL APTT 46.1 seconds HI Glucose Level 124 mg/dL HI Sodium Level 137 mEq/L Potassium Level 3.4 mEq/L LOW Chloride 100 mEq/L CO2 32 mEq/L Electrolyte Balance 5.0 mEq/L BUN 17.0 mg/dL Creatinine Lvl (s) 1.15 mg/dL BUN/Creatinine Ratio 14.8 ratio Calcium Lvl 8.8 mg/dL Magnesium Lvl 2.2 mg/dL GFR Non- >60 ml/min/1.73sqm NA GFR >60 ml/min/1.73sqm NA Creatinine Clearance Calc 77.27 mL/min 02/01/2024 3:35 EDT Temperature Oral 36.4 DegC Heart Rate Monitored 80 bpm Respiratory Rate 18 br/min Systolic Blood Pressure Non-Invasive 105 mmHg Diastolic Blood Pressure Non-Invasive 62 mmHg Mean Arterial Pressure (NBP) 73 mmHg Reason For Taking VItal Signs Routine Primary Pain Intensity 0 Primary Pain Nonverbal Response Nods No Pain Scale Type 0-10 Pain scale Monitor Alarms On and Limits Checked Nail Bed Color Horse Pasture Capillary Refill < 2 seconds Heart Sounds ICU S1S2 Heart Rhythm Regular Cardiac Rhythm Sinus rhythm Monitoring Lead II, V5/MCL5 Alarms On and Functional Yes Heart Rate Alarm Set At - Low 50 Heart Rate Alarm Set At - High 120 Respirations Unlabored Respiratory Pattern Regular Breath Sounds Auscultated Anterior only All Lobes Breath Sounds Clear, Diminished Oxygen Therapy Room air Oxygen Saturation 93 % Abdomen Description Rounded Abdomen Palpation Non-Tender Bowel Continence No bowel movement Bowel Sounds All Quadrants Present Urinary Elimination Voiding, no difficulties All Extremity Description Horse Pasture Skin Temperature Warm Temperature All Extremities Warm Skin Description Horse Past[place], Dry Skin Integrity Intact Skin Turgor Non-Elastic Mucous Membrane Color [place] Past[place] Mucous Membrane Description Moist Neurological Language Able to speak clearly Neurological Symptoms Patient denies Gait Unable to assess Extremity Movement Equal Swallowing Difficulty None Characteristics of Communication Appropriate Characteristics of Speech Clear Facial Symmetry Symmetric Level of Consciousness Alert Aspiration Risk None Eye Opening Response [place] Spontaneously Best Motor Response Luis Felipe Obeys simple commands Best Verbal Response [place]ardon Oriented Luis Felipe Coma Score 15 CLARA Yes Strength All Extremities Strong Affect/Behavior Appropriate, Calm Orientation Oriented x 4 Orientation Assessment Oriented x 4 Pt./Caregiver Remote Cont.Visual Monitor Verbalizes/Nonverbally indicates understanding Positioning Repositioned right side, Repositions self Activity Status ADL Awake Beds/Devices air fluidized bed Assistive Equipment elevated on pillows Activity Assistance Independent NPO Status Maintained Standard Safety ID band on, Allergy Band on, Call device within reach, Bed in low position High Risk Safety Identified as high risk, Fall ID band on, Room located near nursing station, Bed alert on Demonstrates Correct Call Light Use Yes omeprazole 40 mg mg Degrees Head of Bed Elevated 30 Stool Count 0 EA 02/01/2024 3:27 EDT Mechanical VTE Prophylaxis Education Not Done: Task Duplication (Not Done) Mechanical VTE Prophylaxis Education Not Done: Task Duplication (Not Done) Sequential Compression Device Not Done: Task Duplication (Not Done) Sequential Compression Device Not Done: Task Duplication (Not Done) Sequential Compression Device Form Not Done (Not Done) Sequential Compression Device Form Not Done (Not Done) 02/01/2024 2:54 EDT Pulmonary Status Not Done: Not Appropriate at this Time (Not Done) Surgical Status Not Done: Not Appropriate at this Time (Not Done) Chest X-Ray Not Done: Not Appropriate at this Time (Not Done) Respiratory Pattern (RT) Not Done: Not Appropriate at this Time (Not Done) Breath Sounds (RT) Not Done: Not Appropriate at this Time (Not Done) Cough (RT) Not Done: Not Appropriate at this Time (Not Done) Level of Activity Not Done: Not Appropriate at this Time (Not Done) Mental Status (RT) Not Done: Not Appropriate at this Time (Not Done) Respiratory Therapy Evaluation Score Not Done: Not Appropriate at this Time (Not Done) RT Assessment [Frequency/Schedule] Not Done: Not Appropriate at this Time (Not Done) RT Evaluation Steps Not Done: Not Appropriate at this Time (Not Done) 01/31/2024 23:44 EDT ceftriaxone 2 gram(s) gram(s) 01/31/2024 23:39 EDT allopurinol 100 mg mg omeprazole 40 mg mg rosuvastatin 20 mg mg traZODone 100 mg mg 01/31/2024 23:23 EDT Temperature Oral 36.4 DegC Heart Rate Monitored 84 bpm Respiratory Rate 20 br/min Systolic Blood Pressure Non-Invasive 100 mmHg Diastolic Blood Pressure Non-Invasive 65 mmHg Mean Arterial Pressure (NBP) 74 mmHg Reason For Taking VItal Signs Routine Primary Pain Intensity 0 Primary Pain Nonverbal Response Nods No Pain Scale Type 0-10 Pain scale Monitor Alarms On and Limits Checked Nail Bed Color [place] Past[place] Capillary Refill < 2 seconds Heart Sounds ICU S1S2 Heart Rhythm Irregular Cardiac Rhythm Sinus rhythm Monitoring Lead II, V5/MCL5 IN Interval 0.16 second(s) QRS Duration 0.08 second(s) QT Interval 0.4 second(s) QTc Interval 0.46 second(s) Alarms On and Functional Yes Heart Rate Alarm Set At - Low 50 Heart Rate Alarm Set At - High 120 Respirations Unlabored Respiratory Pattern Regular Breath Sounds Auscultated Anterior only All Lobes Breath Sounds Clear, Diminished Oxygen Therapy Room air Oxygen Saturation 94 % Abdomen Description Rounded Abdomen Palpation Non-Tender Bowel Continence No bowel movement Bowel Sounds All Quadrants Present Tolerating Oral Intake Yes Urinary Elimination Voiding, no difficulties All Extremity Description [place] Past[place] Skin Temperature Warm Temperature All Extremities Warm Skin Description [place], Dry Skin Integrity Intact Skin Turgor Non-Elastic Mucous Membrane Color [place] Mucous Membrane Description Moist Neurological Language Able to speak clearly Neurological Symptoms Patient denies Gait Unable to assess Extremity Movement Equal Swallowing Difficulty None Characteristics of Communication Appropriate Characteristics of Speech Clear Facial Symmetry Symmetric Level of Consciousness Alert Aspiration Risk None Eye Opening Response Luis Felipe Spontaneously Best Motor Response [place] Obeys simple commands Best Verbal Response [place] Oriented [place] Coma Score 15 CLARA Yes Strength All Extremities Strong Affect/Behavior Appropriate, Calm Orientation Oriented x 4 Orientation Assessment Oriented x 4 Pt./Caregiver Remote Cont.Visual Monitor Verbalizes/Nonverbally indicates understanding Positioning Repositioned left side, Repositions self Activity Status ADL Awake Beds/Devices air fluidized bed Assistive Equipment elevated on pillows Activity Assistance Independent NPO Status Initiated Standard Safety ID band on, Allergy Band on, Call device within reach, Bed in low position High Risk Safety Identified as high risk, Fall ID band on, Room located near nursing station, Bed alert on Demonstrates Correct Call Light Use Yes Degrees Head of Bed Elevated 30 Adaptive Feeding Equipment None Appetite Good Eating Difficulties None Oral Intake 100 mL 01/31/2024 22:20 EDT Notify date/time 01/31/2024 22:20 Provider Notified MILY MAURER Notification Method Pager Information Communicated Medication request Details Communicated Would like Trazodone. It is on his home med list 01/31/2024 21:50 EDT heparin 4,000 unit(s) unit(s) 01/31/2024 21:47 EDT heparin Begin Bag 2.5 mL unit(s) Dextrose 5% Premix Diluent Begin Bag 250 mL mL 01/31/2024 21:39 EDT Apical Heart Rate 88 bpm metoprolol 100 mg mg Oral Intake 100 mL 01/31/2024 19:30 EDT Temperature Oral 36.5 DegC Heart Rate Monitored 80 bpm Respiratory Rate 16 br/min Reason For Taking VItal Signs Routine Primary Pain Intensity 0 Primary Pain Nonverbal Response Nods No Pain Scale Type 0-10 Pain scale Monitor Alarms On and Limits Checked Nail Bed Color [place] Past[place] Capillary Refill < 2 seconds Heart Sounds ICU S1S2 Heart Rhythm Irregular Dorsalis Pedis Pulse, Left 1+ Thready Dorsalis Pedis Pulse, Right 1+ Thready Radial Pulse, Left 2+ Normal Radial Pulse, Right 2+ Normal Pretibial edema Bilateral Edema Ratin+ trace/2mm Cardiac Rhythm Atrial fibrillation Monitoring Lead II, V5/MCL5 Alarms On and Functional Yes Heart Rate Alarm Set At - Low 50 Heart Rate Alarm Set At - High 120 Respirations Unlabored Respiratory Pattern Regular Breath Sounds Auscultated Anterior and posterior All Lobes Breath Sounds Clear, Diminished Cough None Oxygen Therapy Room air Tracheal Position Midline Abdomen Description Rounded Abdomen Palpation Non-Tender Bowel Continence No bowel movement Bowel Sounds All Quadrants Present Tolerating Oral Intake Yes Urinary Elimination Voiding, no difficulties Facial Movement Makes facial grimaces All Extremity Description [place] Past[place] Skin Temperature Warm Temperature All Extremities Warm Skin Description [place], Dry Skin Integrity Intact Skin Turgor Non-Elastic Mucous Membrane Color [place] Past[place] Mucous Membrane Description Moist Sensory Perception [place] No impairment Moisture [place] Occasionally moist Activity [place] Walks occasionally Mobility [place] Slightly limited Nutrition [place] Adequate Friction and Shear [place] Potential problem [place] Score 18 Hospital Acquired Pressure Injury Risk Low risk (score 15-18) Continuous IV Infusions heparin@9units/kg/hr Antecubital Left 01/30/2024 18 gauge Peripheral IV Activity: Assessed Peripheral IV Dressing Condition: Clean, Dry, Intact Peripheral IV Dressing Activity: Transparent dressing Peripheral IV Line Status/Patency: Flushes easily Peripheral IV Site Condition: No complications Peripheral IV Equipment: IV Pump Neurological Language Able to speak clearly Neurological Symptoms Patient denies Gait Unable to assess Extremity Movement Equal Swallowing Difficulty None Characteristics of Communication Appropriate Characteristics of Speech Clear Facial Symmetry Symmetric Level of Consciousness Alert Aspiration Risk None Eye Opening Response [place] Spontaneously Best Motor Response Ch[place] Obeys simple commands Best Verbal Response Chardon Oriented Luis Felipe Coma Score 15 CLARA Yes Left Pupil Description Regular, Round Right Pupil Description Regular, Round Left Pupil Reaction Brisk Right Pupil Reaction Brisk Pupil Size, Left 3 mm Pupil Size, Right 3 mm Strength All Extremities Strong Left Upper Extremity Sensation Intact Right Upper Extremity Sensation Intact Left Lower Extremity Sensation Intact Right Lower Extremity Sensation Intact CN V Facial Sensation Light touch equal bilaterally CN VII Facial Expression and Symmetry Facial movement symmetrical CN VIII Hearing Spoken word equally audible left/right CN IX, X Swallowing, Gag Reflex Swallowing present [place] Screen Daily History of Fall in Last 3 Months [place] No Presence of Secondary Diagnosis [place] Yes Use of Ambulatory Aid [place] None, bedrest, wheelchair, nurse IV/PRN Adapter Fall Risk [place] Yes Gait Weak or Impaired Fall Risk [place] Weak Mental Status Fall Risk [place] Oriented to own ability [place] Fall Risk Score 45 Violence Risk Confused No Violence Risk Irritable No Violence Risk Boisterous No Violence Risk Verbal Threats No Violence Risk Physical Threats No Violence Risk Attacking Objects No Violence Risk Predictor Score 0 Violence Risk Intervention None Violence Risk Current Interventions None Affect/Behavior Appropriate, Calm Orientation Oriented x 4 BMAT Existing Patient Condition/Safety No order for Strict Bedrest BMAT Level 1: Sit and Shake Sit, side bed/reach midline/shake hands BMAT Level 2: Stretch and Point Seated position, straighten 1 knee; Flex ankle & point toes BMAT Level 3: Stand Stand up w/o assist/Use of assist device BMAT Mobility Level 3 Orientation Assessment Oriented x 4 Pt./Caregiver Remote Cont.Visual Monitor Verbalizes/Nonverbally indicates understanding Positioning Repositioned left side, Repositions self Activity Status ADL Awake Beds/Devices low air loss bed Assistive Equipment elevated on pillows Activity Assistance Independent Nurse Safety Checks q2hrs Performed 7pm-7am Standard Safety ID band on, Allergy Band on, Call device within reach, Bed in low position High Risk Safety Identified as high risk, Fall ID band on, Room located near nursing station, Bed alert on Demonstrates Correct Call Light Use Yes RN Coordination of Care 7pm-7am Degrees Head of Bed Elevated 30 Adaptive Feeding Equipment None Appetite Good Eating Difficulties None Oral Intake 100 mL Stool Count 0 EA 01/31/2024 19:10 EDT Mechanical VTE Prophylaxis Education Not Done: Not Appropriate at this Time (NotDone) Sequential Compression Device Not Done: Not Appropriate at this Time (Not Done) Sequential Compression Device Form Not Done (Not Done) 01/31/2024 19:09 EDT Skin Assessment Verification Not Done: Not Appropriate at this Time (Not Done) Skin Assessment Verification Not Done: Not Appropriate at this Time (Not Done) Mechanical VTE Prophylaxis Education Not Done: Not Appropriate at this Time (Not Done) Mechanical VTE Prophylaxis Education Not Done: Not Appropriate at this Time (Not Done) Mechanical VTE Prophylaxis Education Not Done: Not Appropriate at this Time (Not Done) Mechanical VTE Prophylaxis Education Not Done: Not Appropriate at this Time (Not Done) Sequential Compression Device Not Done: Not Appropriate at this Time (Not Done) Sequential Compression Device Not Done: Not Appropriate at this Time (Not Done) Sequential Compression Device Not Done: Not Appropriate at this Time (Not Done) Sequential Compression Device Not Done: Not Appropriate at this Time (Not Done) Sequential Compression Device Form Not Done (Not Done) Sequential Compression Device Form Not Done (Not Done) Sequential Compression Device Form Not Done (Not Done) Sequential Compression Device Form Not Done (Not Done) 01/31/2024 19:07 EDT Peripheral Pulse Rate 78 bpm Respiratory Rate 20 br/min Respirations Unlabored Breath Sounds Auscultated Anterior only All Lobes Breath Sounds Clear, Diminished Aerosol Delivery Device Small volume nebulizer Aerosol Treatment Route Mouth piece Cough and Deep Breathe Done Spontaneous Cough Yes Cough Dry, Non-Productive Oxygen Saturation 92 % LOW Respiratory Treatment Charge Two aerosol treatments Level of Consciousness Alert albuterol-ipratropium 3 mL mL budesonide 0.25 mg mg 01/31/2024 19:05 EDT dofetilide 250 mcg mcg 01/31/2024 18:38 EDT Heart Rate Monitored 81 bpm Respiratory Rate 22 br/min HI Systolic Blood Pressure Non-Invasive 108 mmHg Diastolic Blood Pressure Non-Invasive 65 mmHg Mean Arterial Pressure (NBP) 79 mmHg Oxygen Therapy Room air Oxygen Saturation 91 % LOW 01/31/2024 17:44 EDT APTT 34.5 seconds 01/31/2024 16:20 EDT Echocardiogram, Adult - CV Signed 01/31/2024 15:56 EDT Antecubital Left 01/30/2024 18 gauge Peripheral IV Activity: Assessed Peripheral IV Dressing Condition: Clean, Dry, Intact Peripheral IV Dressing Activity: Transparent dressing Peripheral IV Line Status/Patency: Flushes easily Peripheral IV Site Condition: No complications Peripheral IV Equipment: IV Pump 01/31/2024 15:53 EDT Temperature Oral 36.6 DegC Heart Rate Monitored 99 bpm Respiratory Rate 20 br/min Systolic Blood Pressure Non-Invasive 104 mmHg Diastolic Blood Pressure Non-Invasive 66 mmHg Mean Arterial Pressure (NBP) 79 mmHg Primary Pain Intensity 0 Pain Scale Type 0-10 Pain scale Monitor Alarms On and Limits Checked Nail Bed Color Horse Pasture Capillary Refill < 2 seconds Heart Sounds ICU S1S2 Heart Rhythm Irregular Dorsalis Pedis Pulse, Left 1+ Thready Dorsalis Pedis Pulse, Right 1+ Thready Posttibial Pulse, Left 1+ Thready Posttibial Pulse, Right 1+ Thready Radial Pulse, Left 2+ Normal Radial Pulse, Right 2+ Normal Pretibial edema Bilateral Edema Ratin+ trace/2mm, Non-pitting Cardiac Rhythm Atrial fibrillation Monitoring Lead II, V1/MCL1 Alarms On and Functional Yes Heart Rate Alarm Set At - Low 50 Heart Rate Alarm Set At - High 120 NSBP Alarm Low 90 NSBP Alarm High 160 HI Respirations Unlabored Respiratory Pattern Regular Patient Airway Status Patent without support Breath Sounds Auscultated Anterior only All Lobes Breath Sounds Clear, Diminished, Equal Oxygen Therapy Room air Oxygen Saturation 94 % Abdomen Description Non-distended, Soft Abdomen Palpation Non-Tender Bowel Sounds All Quadrants Present Urinary Elimination Voiding, no difficulties Facial Movement Symmetric resting/crying All Extremity Description Normal for ethnicity Skin Temperature Warm Temperature All Extremities Warm Skin Description Normal for ethnicity Skin Integrity Pressure points intact Skin Turgor Non-Elastic Mucous Membrane Color [place] Mucous Membrane Description Moist Neurological Language Able to speak clearly Neurological Symptoms Patient denies Extremity Movement Equal Swallowing Difficulty None Characteristics of Communication Appropriate Characteristics of Speech Clear Facial Symmetry Symmetric Level of Consciousness Alert Aspiration Risk None Eye Opening Response [place] Spontaneously Best Motor Response Luis Felipe Obeys simple commands Best Verbal Response Chardon Oriented Luis Felipe Coma Score 15 CLARA Yes Left Pupil Description Regular, Round Right Pupil Description Regular, Round Left Pupil Reaction Brisk Right Pupil Reaction Brisk Pupil Size, Left 3 mm Pupil Size, Right 3 mm Strength All Extremities Strong CN V Facial Sensation Corneal reflex present CN VII Facial Expression and Symmetry Facial movement symmetrical CN IX, X Swallowing, Gag Reflex Swallowing present Affect/Behavior Appropriate, Calm, Cooperative Orientation Oriented x 4 Positioning Repositioned left side, Repositions self Activity Status ADL Awake Beds/Devices low air loss bed Assistive Equipment elevated on pillows Activity Assistance Independent Standard Safety ID band on, Call device within reach, Bed in low position, Wheels locked, Upper/Half-Length side-rails up, Safety level maintained, Hazards removed from floor, Precautions maintained heparin 9 unit(s)/kg/hr unit(s) Dextrose 5% Premix Diluent Dextrose 5% Premix Diluent mL Degrees Head of Bed Elevated 30 01/31/2024 15:38 EDT [facility] Current Living Situation I have a steady place to live [facility] Current Issues Living Environment None [facility] Worried Food Running Out P12M Never true [facility] Food Gone, No Money To Buy P12M Never true [facility] No Transport Med/Appt/Work P12M No [facility] Utilities Threaten Shut Off P12M No [facility] Anyone Physically Hurt You Never (1) [facility] Anyone Insult Or Talk Down To You Never (1) [facility] Anyone Threaten You With Harm Never (1) [facility] Anyone Scream Or Curse At You Never (1) [facility] Safety Total Score 4 Living Situation Lives with family Discharge To, Anticipated Home independently Anticipated Discharge Date 02/02/2024 Transition Planning Note Transition Planning Initial Assessment 01/31/2024 15:36 EDT Primary Care Phone Message Transition of Care sent from [facility] 01/31/2024 14:59 EDT heparin 9,000 unit(s) unit(s) Dextrose 5% Premix Diluent 90 mL mL 01/31/2024 14:43 EDT Oil Trough Body Weight 72.7 kg Home Diet Regular Weight Chg, Unintentional Nutrition Hx Weight stable per [place] history Appetite Good Nutrition Plan of Care Dietitian follow up/monitor, Encourage PO feedings, Participate in team conference Nutrition Follow-Up Needed Yes Days until Rig Supervisor Follow Up Seven days Adult Nutrition Initial Assessment/Plan Adult Nutrition Assessment/Plan 01/31/2024 14:22 EDT Transition of Care Note Transition of Care sent from [facility] 01/31/2024 14:00 EDT Hand Right 01/30/2024 20 gauge Peripheral IV Activity: Discontinued Peripheral IV Removal: Catheter intact, no resistance Peripheral IV Removal Reason: Unintentionally 01/31/2024 13:30 EDT Heart Rate Monitored 91 bpm Respiratory Rate 16 br/min Systolic Blood Pressure Non-Invasive 102 mmHg Diastolic Blood Pressure Non-Invasive 71 mmHg Mean Arterial Pressure (NBP) 79 mmHg Reason For Taking VItal Signs Routine Primary Pain Intensity 0 Primary Pain Nonverbal Response Nods No Pain Scale Type 0-10 Pain scale Monitor Alarms On and Limits Checked Nail Bed Color Horse Past[place] Capillary Refill < 2 seconds Heart Rhythm Irregular Pretibial edema Bilateral Edema Ratin+ trace/2mm Cardiac Rhythm Atrial fibrillation Monitoring Lead avL, V4/MCL4 Alarms On and Functional Yes Respirations Unlabored Respiratory Pattern Regular Breath Sounds Auscultated Anterior only All Lobes Breath Sounds Clear, Diminished Oxygen Therapy Room air Oxygen Saturation 94 % Abdomen Description Symmetric, Soft, Rounded Abdomen Palpation Non-Tender, Soft Bowel Sounds All Quadrants Present All Extremity Description Normal for ethnicity Temperature All Extremities Warm Skin Description Normal for ethnicity Mucous Membrane Color [place] Mucous Membrane Description Moist Hand Right 01/30/2024 20 gauge Peripheral IV Activity: Assessed Peripheral IV Equipment: PRN Adaptor Antecubital Left 01/30/2024 18 gauge Peripheral IV Activity: Assessed Peripheral IV Equipment: IV Pump Neurological Symptoms Patient denies Level of Consciousness Alert CLARA Yes Strength All Extremities Strong Affect/Behavior Appropriate, Calm, Cooperative Orientation Oriented x 4, Follows simple commands Positioning Repositioned right side, Repositions self, Encouraged/reinforced importance of turning Activity Status ADL Awake Beds/Devices low air loss bed, turn and position system Assistive Equipment elevated on pillows Activity Assistance Minimum assistance Standard Safety Safety level maintained High Risk Safety Room check performed Demonstrates Correct Call Light Use Yes heparin 9 unit(s)/kg/hr unit(s) Dextrose 5% Premix Diluent Dextrose 5% Premix Diluent mL Degrees Head of Bed Elevated 30 01/31/2024 13:00 EDT Heart Rate Monitored 88 bpm Systolic Blood Pressure Non-Invasive 92 mmHg Diastolic Blood Pressure Non-Invasive 65 mmHg Mean Arterial Pressure (NBP) 75 mmHg Oxygen Saturation 92 % LOW albuterol-ipratropium Not Done: Patient Refused (Not Done) 01/31/2024 12:45 EDT Heart Rate Monitored 84 bpm Systolic Blood Pressure Non-Invasive 97 mmHg Diastolic Blood Pressure Non-Invasive 73 mmHg Mean Arterial Pressure (NBP) 79 mmHg 01/31/2024 12:31 EDT Transesophageal Echocardiogram - CV Ordered (In Progress) 01/31/2024 12:30 EDT Heart Rate Monitored 90 bpm Systolic Blood Pressure Non-Invasive 100 mmHg Diastolic Blood Pressure Non-Invasive 59 mmHg LOW Mean Arterial Pressure (NBP) 73 mmHg Oxygen Saturation 93 % 01/31/2024 12:15 EDT Heart Rate Monitored 89 bpm Systolic Blood Pressure Non-Invasive 122 mmHg Diastolic Blood Pressure Non-Invasive 96 mmHg HI Mean Arterial Pressure (NBP) 105 mmHg Oxygen Saturation 92 % LOW heparin 9 unit(s)/kg/hr unit(s) Dextrose 5% Premix Diluent Dextrose 5% Premix Diluent mL 01/31/2024 12:00 EDT Heart Rate Monitored 81 bpm Systolic Blood Pressure Non-Invasive 104 mmHg Diastolic Blood Pressure Non-Invasive 82 mmHg Mean Arterial Pressure (NBP) 89 mmHg Oxygen Saturation 93 % Continuous IV Infusions Levo off 01/31/2024 11:30 EDT Temperature Oral 36.5 DegC Heart Rate Monitored 86 bpm Respiratory Rate 16 br/min Systolic Blood Pressure Non-Invasive 99 mmHg Diastolic Blood Pressure Non-Invasive 79 mmHg Mean Arterial Pressure (NBP) 85 mmHg Reason For Taking VItal Signs Routine Primary Pain Intensity 0 Primary Pain Nonverbal Response Nods No (Modified) Pain Scale Type 0-10 Pain scale Monitor Alarms On and Limits Checked Nail Bed Color [place] Capillary Refill < 2 seconds Heart Rhythm Irregular Dorsalis Pedis Pulse, Left 1+ Thready Dorsalis Pedis Pulse, Right 1+ Thready Posttibial Pulse, Left 1+ Thready Posttibial Pulse, Right 1+ Thready Radial Pulse, Left 1+ Thready Radial Pulse, Right 1+ Thready Pretibial edema Bilateral Edema Ratin+ trace/2mm Cardiac Rhythm Atrial fibrillation Monitoring Lead II, V5/MCL5 Alarms On and Functional Yes Heart Rate Alarm Set At - Low 50 Heart Rate Alarm Set At - High 120 NSBP Alarm Low 90 NSBP Alarm High 160 HI Respirations Unlabored Respiratory Pattern Regular Breath Sounds Auscultated Anterior only All Lobes Breath Sounds Clear, Diminished Oxygen Therapy Nasal cannula 0L-6L Oxygen Saturation 95 % Oxygen Flow Rate 2 Abdomen Description Symmetric, Soft, Rounded Abdomen Palpation Non-Tender, Soft Bowel Sounds All Quadrants Present Facial Movement Symmetric resting/crying All Extremity Description Normal for ethnicity Skin Temperature Warm Temperature All Extremities Warm Skin Description Normal for ethnicity Skin Integrity Pressure points intact Skin Turgor Non-Elastic Mucous Membrane Color [place] Past[place] Mucous Membrane Description Moist Continuous IV Infusions Levo @ 1 Hand Right 01/30/2024 20 gauge Peripheral IV Activity: Assessed Peripheral IV Dressing Condition: Clean, Dry, Intact Peripheral IV Dressing Activity: Transparent dressing Peripheral IV Line Status/Patency: Flushes easily Peripheral IV Line Care: Secured with tape Peripheral IV Site Condition: No complications Peripheral IV Equipment: PRN Adaptor Antecubital Left 01/30/2024 18 gauge Peripheral IV Activity: Assessed Peripheral IV Dressing Condition: Clean, Dry, Intact Peripheral IV Dressing Activity: Transparent dressing Peripheral IV Line Status/Patency: Flushes easily Peripheral IV Line Care: Secured with tape Peripheral IV Site Condition: No complications Peripheral IV Equipment: IV Pump Neurological Language Able to speak clearly, Follows simple commands Neurological Symptoms Patient denies Gait Unable to assess Extremity Movement Equal Swallowing Difficulty None Characteristics of Communication Appropriate Characteristics of Speech Clear Facial Symmetry Symmetric Level of Consciousness Alert Aspiration Risk None Eye Opening Response [place] Spontaneously Best Motor Response Luis Felipe Obeys simple commands Best Verbal Response [place] Oriented Luis Felipe Coma Score 15 CLARA Yes Left Pupil Description Regular, Round Right Pupil Description Regular, Round Left Pupil Reaction Brisk Right Pupil Reaction Brisk Pupil Size, Left 2 mm Pupil Size, Right 2 mm Strength All Extremities Strong Left Upper Extremity Sensation Intact Right Upper Extremity Sensation Intact Left Lower Extremity Sensation Intact Right Lower Extremity Sensation Intact CN V Facial Sensation Corneal reflex present CN VII Facial Expression and Symmetry Facial movement symmetrical CN VIII Hearing Spoken word equally audible left/right CN IX, X Swallowing, Gag Reflex Swallowing present Affect/Behavior Appropriate, Calm, Cooperative Orientation Oriented x 4, Follows simple commands Positioning Repositioned back, Repositions self, Encouraged/reinforced importance of turning Activity Status ADL Awake Beds/Devices low air loss bed, turn and position system Assistive Equipment elevated on pillows Activity Assistance Minimum assistance Skin Care Preventative Intervention(s) heel(s)s elevated, padded oxygen tubing, turn and position system Standard Safety Safety level maintained High Risk Safety Room check performed Demonstrates Correct Call Light Use Yes heparin 7 unit(s)/kg/hr unit(s) Dextrose 5% Premix Diluent Dextrose 5% Premix Diluent mL Degrees Head of Bed Elevated 30 01/31/2024 11:00 EDT Heart Rate Monitored 76 bpm Systolic Blood Pressure Non-Invasive 95 mmHg Diastolic Blood Pressure Non-Invasive 72 mmHg Mean Arterial Pressure (NBP) 81 mmHg 01/31/2024 10:30 EDT Heart Rate Monitored 91 bpm Systolic Blood Pressure Non-Invasive 100 mmHg Diastolic Blood Pressure Non-Invasive 67 mmHg Mean Arterial Pressure (NBP) 79 mmHg Oxygen Saturation 93 % 01/31/2024 10:25 EDT APTT 33.9 seconds 01/31/2024 10:06 EDT Apical Heart Rate 92 bpm metoprolol 100 mg mg 01/31/2024 10:00 EDT Heart Rate Monitored 88 bpm Systolic Blood Pressure Non-Invasive 90 mmHg Diastolic Blood Pressure Non-Invasive 64 mmHg Mean Arterial Pressure (NBP) 74 mmHg Oxygen Therapy Nasal cannula 0L-6L Oxygen Saturation 88 % <LLOW (Modified) Oxygen Flow Rate 2 01/31/2024 9:45 EDT Heart Rate Monitored 85 bpm Systolic Blood Pressure Non-Invasive 93 mmHg Diastolic Blood Pressure Non-Invasive 55 mmHg LOW Mean Arterial Pressure (NBP) 68 mmHg Oxygen Saturation 89 % <LLOW 01/31/2024 9:30 EDT Heart Rate Monitored 86 bpm Respiratory Rate 16 br/min Reason For Taking VItal Signs Routine Primary Pain Intensity 0 Primary Pain Nonverbal Response Nods No Pain Scale Type 0-10 Pain scale Monitor Alarms On and Limits Checked Nail Bed Color Horse Pasture Capillary Refill < 2 seconds Heart Rhythm Irregular Pretibial edema Bilateral Edema Ratin+ trace/2mm Cardiac Rhythm Atrial fibrillation Monitoring Lead II, V6/MCL6 Alarms On and Functional Yes Respirations Unlabored Respiratory Pattern Regular Breath Sounds Auscultated Anterior only All Lobes Breath Sounds Clear, Diminished Oxygen Therapy Room air Oxygen Saturation 89 % <LLOW Abdomen Description Symmetric, Soft, Rounded Abdomen Palpation Non-Tender, Soft Bowel Sounds All Quadrants Present All Extremity Description Normal for ethnicity Temperature All Extremities Warm Skin Description Normal for ethnicity Mucous Membrane Color Horse Pasture Mucous Membrane Description Moist Continuous IV Infusions Levo @ 1 Hand Right 01/30/2024 20 gauge Peripheral IV Activity: Assessed Peripheral IV Equipment: PRN Adaptor Antecubital Left 01/30/2024 18 gauge Peripheral IV Activity: Assessed Peripheral IV Equipment: IV Pump Neurological Symptoms Patient denies Level of Consciousness Alert CLARA Yes Strength All Extremities Strong Affect/Behavior Appropriate, Calm, Cooperative Orientation Oriented x 4, Follows simple commands Positioning Repositioned left side, Repositions self, Encouraged/reinforced importance of turning Activity Status ADL Resting Beds/Devices low air loss bed, turn and position system Assistive Equipment elevated on pillows Activity Assistance Minimum assistance Standard Safety Safety level maintained High Risk Safety Room check performed Demonstrates Correct Call Light Use Yes heparin 7 unit(s)/kg/hr unit(s) Dextrose 5% Premix Diluent Dextrose 5% Premix Diluent mL Degrees Head of Bed Elevated 30 01/31/2024 9:15 EDT Heart Rate Monitored 87 bpm Systolic Blood Pressure Non-Invasive 99 mmHg Diastolic Blood Pressure Non-Invasive 66 mmHg Mean Arterial Pressure (NBP) 76 mmHg 01/31/2024 9:00 EDT Heart Rate Monitored 91 bpm Systolic Blood Pressure Non-Invasive 104 mmHg Diastolic Blood Pressure Non-Invasive 80 mmHg Mean Arterial Pressure (NBP) 90 mmHg Oxygen Therapy Room air Oxygen Saturation 93 % 01/31/2024 8:59 EDT Cardiology Consultation Consult Note (Modified) 01/31/2024 8:53 EDT furosemide 40 mg mg 01/31/2024 8:49 EDT Electrocardiogram - EKG - CV Completed (In Progress) 01/31/2024 8:30 EDT Heart Rate Monitored 82 bpm Systolic Blood Pressure Non-Invasive 96 mmHg Diastolic Blood Pressure Non-Invasive 72 mmHg Mean Arterial Pressure (NBP) 80 mmHg Oxygen Saturation 93 % 01/31/2024 8:00 EDT Heart Rate Monitored 82 bpm Systolic Blood Pressure Non-Invasive 89 mmHg LOW Diastolic Blood Pressure Non-Invasive 72 mmHg Mean Arterial Pressure (NBP) 79 mmHg Oxygen Saturation 94 % 01/31/2024 7:45 EDT Heart Rate Monitored 80 bpm Systolic Blood Pressure Non-Invasive 94 mmHg Diastolic Blood Pressure Non-Invasive 77 mmHg Mean Arterial Pressure (NBP) 84 mmHg Oxygen Saturation 94 % 01/31/2024 7:30 EDT Blood Glucose, Capillary 146 mg/dL HI Blood Glucose Testing Reason Routine Temperature Oral 36.4 DegC Heart Rate Monitored 74 bpm Respiratory Rate 16 br/min Systolic Blood Pressure Non-Invasive 91 mmHg Diastolic Blood Pressure Non-Invasive 68 mmHg Mean Arterial Pressure (NBP) 76 mmHg Reason For Taking VItal Signs Routine Primary Pain Intensity 0 Primary Pain Nonverbal Response Nods No Pain Scale Type 0-10 Pain scale Monitor Alarms On and Limits Checked Nail Bed Color Horse Pasture Capillary Refill < 2 seconds Heart Rhythm Irregular Dorsalis Pedis Pulse, Left 1+ Thready Dorsalis Pedis Pulse, Right 1+ Thready Posttibial Pulse, Left 1+ Thready Posttibial Pulse, Right 1+ Thready Radial Pulse, Left 1+ Thready Radial Pulse, Right 1+ Thready Pretibial edema Bilateral Edema Ratin+ trace/2mm (Modified) Cardiac Rhythm Atrial fibrillation Monitoring Lead III, V4/MCL4 Alarms On and Functional Yes Heart Rate Alarm Set At - Low 50 Heart Rate Alarm Set At - High 120 NSBP Alarm Low 90 NSBP Alarm High 160 HI Respirations Unlabored Respiratory Pattern Regular Breath Sounds Auscultated Anterior only All Lobes Breath Sounds Diminished Oxygen Therapy Nasal cannula 0L-6L Oxygen Saturation 94 % Oxygen Flow Rate 2 Abdomen Description Symmetric, Soft, Rounded Abdomen Palpation Non-Tender, Soft Bowel Sounds All Quadrants Present Facial Movement Makes facial grimaces All Extremity Description Normal for ethnicity Skin Temperature Warm Temperature All Extremities Warm Skin Description Normal for ethnicity Skin Integrity Pressure points intact Skin Turgor Non-Elastic Mucous Membrane Color Horse Pasture Mucous Membrane Description Moist Continuous IV Infusions Levo @ 1 Hand Right 01/30/2024 20 gauge Peripheral IV Activity: Assessed Peripheral IV Dressing Condition: Clean, Dry, Intact Peripheral IV Dressing Activity: Transparent dressing Peripheral IV Line Status/Patency: Flushes easily Peripheral IV Line Care: Secured with tape Peripheral IV Site Condition: No complications Peripheral IV Equipment: PRN Adaptor Antecubital Left 01/30/2024 18 gauge Peripheral IV Activity: Assessed Peripheral IV Dressing Condition: Clean, Dry, Intact Peripheral IV Dressing Activity: Transparent dressing Peripheral IV Line Status/Patency: Flushes easily Peripheral IV Line Care: Secured with tape Peripheral IV Site Condition: No complications Peripheral IV Equipment: IV Pump Neurological Language Able to speak clearly, Follows simple commands Neurological Symptoms Patient denies Gait Unable to assess Extremity Movement Equal Swallowing Difficulty None Characteristics of Communication Appropriate Characteristics of Speech Clear Facial Symmetry Symmetric Level of Consciousness Alert Aspiration Risk None Eye Opening Response Luis Felipe Spontaneously Best Motor Response [place] Obeys simple commands Best Verbal Response [place] Oriented [place] Coma Score 15 CLARA Yes Left Pupil Description Regular, Round Right Pupil Description Regular, Round Left Pupil Reaction Brisk Right Pupil Reaction Brisk Pupil Size, Left 2 mm Pupil Size, Right 2 mm Strength All Extremities Strong Left Upper Extremity Sensation Intact Right Upper Extremity Sensation Intact Left Lower Extremity Sensation Intact Right Lower Extremity Sensation Intact CN V Facial Sensation Corneal reflex present CN VII Facial Expression and Symmetry Facial movement symmetrical CN VIII Hearing Spoken word equally audible left/right CN IX, X Swallowing, Gag Reflex Swallowing present Affect/Behavior Appropriate, Calm, Cooperative Orientation Oriented x 4, Follows simple commands Positioning Repositioned right side, Repositions self, Encouraged/reinforced importance of turning Activity Status ADL Resting Beds/Devices low air loss bed, turn and position system Assistive Equipment elevated on pillows Activity Assistance Minimum assistance Skin Care Preventative Intervention(s) heel(s)s elevated, padded oxygen tubing, turn and position system Standard Safety Safety level maintained High Risk Safety Room check performed Demonstrates Correct Call Light Use Yes heparin 7 unit(s)/kg/hr unit(s) Dextrose 5% Premix Diluent Dextrose 5% Premix Diluent mL Degrees Head of Bed Elevated 30 01/31/2024 7:15 EDT Heart Rate Monitored 81 bpm Systolic Blood Pressure Non-Invasive 94 mmHg Diastolic Blood Pressure Non-Invasive 65 mmHg Mean Arterial Pressure (NBP) 74 mmHg Oxygen Saturation 93 % 01/31/2024 7:00 EDT Heart Rate Monitored 87 bpm Oxygen Saturation 94 % Oral Intake 500 mL Stool Count 0 EA Urine Voided 725 mL Urine Voided 700 mL Urine Voided 600 mL 01/31/2024 6:59 EDT heparin 2,700 unit(s) unit(s) Dextrose 5% Premix Diluent 27 mL mL 01/31/2024 6:57 EDT pantoprazole 40 mg mg 01/31/2024 6:56 EDT calcium gluconate 1,000 mg mg magnesium sulfate 6 gram(s) gram(s) Sodium Chloride 0.9% 250 mL mL Sodium Chloride 0.9% 50 mL mL 01/31/2024 6:45 EDT Heart Rate Monitored 95 bpm Systolic Blood Pressure Non-Invasive 86 mmHg LOW Diastolic Blood Pressure Non-Invasive 66 mmHg Mean Arterial Pressure (NBP) 72 mmHg Oxygen Saturation 94 % 01/31/2024 6:30 EDT Heart Rate Monitored 91 bpm Systolic Blood Pressure Non-Invasive 89 mmHg LOW Diastolic Blood Pressure Non-Invasive 72 mmHg Mean Arterial Pressure (NBP) 79 mmHg Oxygen Saturation 94 % 01/31/2024 6:26 EDT albuterol-ipratropium 3 mL mL budesonide 0.25 mg mg 01/31/2024 6:25 EDT Peripheral Pulse Rate 84 bpm Respiratory Rate 16 br/min Systolic Blood Pressure Non-Invasive 88 mmHg LOW Diastolic Blood Pressure Non-Invasive 70 mmHg Mean Arterial Pressure (NBP) 78 mmHg Respirations Unlabored Breath Sounds Auscultated Anterior only All Lobes Breath Sounds Diminished Patient Effort Good Patient Participation in Treatment Cooperative Aerosol Delivery Device Small volume nebulizer Aerosol Treatment Route Mouth piece Cough and Deep Breathe Done Spontaneous Cough Yes Oxygen Saturation 93 % Respiratory Treatment Charge Aerosol treatment Skin Description Normal for ethnicity Level of Consciousness Alert 01/31/2024 6:00 EDT Heart Rate Monitored 87 bpm Respiratory Rate 16 br/min Systolic Blood Pressure Non-Invasive 83 mmHg LOW Diastolic Blood Pressure Non-Invasive 63 mmHg Mean Arterial Pressure (NBP) 71 mmHg Reason For Taking VItal Signs Routine Primary Pain Intensity 0 Primary Pain Nonverbal Response Nods No Pain Scale Type 0-10 Pain scale Monitor Alarms On and Limits Checked Nail Bed Color Horse Pasture Capillary Refill < 2 seconds Heart Rhythm Irregular Pretibial edema Bilateral Edema Ratin+ mild/4mm Cardiac Rhythm Atrial fibrillation Monitoring Lead II, V3/MCL3 Alarms On and Functional Yes Respirations Unlabored Respiratory Pattern Regular Breath Sounds Auscultated Anterior only All Lobes Breath Sounds Clear, Diminished Oxygen Therapy Nasal cannula 0L-6L Oxygen Saturation 92 % LOW Oxygen Flow Rate 2 Abdomen Description Symmetric, Soft, Rounded Abdomen Palpation Non-Tender, Soft Bowel Sounds All Quadrants Present All Extremity Description Normal for ethnicity Skin Temperature Warm Temperature All Extremities Warm Skin Description Normal for ethnicity Skin Integrity Pressure points intact Skin Turgor Non-Elastic Mucous Membrane Color Horse Pasture Mucous Membrane Description Moist Continuous IV Infusions Levo @ 1 Hand Right 01/30/2024 20 gauge Peripheral IV Activity: Assessed Peripheral IV Equipment: PRN Adaptor Antecubital Left 01/30/2024 18 gauge Peripheral IV Activity: Assessed Peripheral IV Equipment: IV Pump Neurological Symptoms Patient denies Level of Consciousness Alert CLARA Yes Strength All Extremities Strong Affect/Behavior Appropriate, Calm, Cooperative Orientation Oriented x 4, Follows simple commands Positioning Repositioned back, Repositions self, Encouraged/reinforced importance of turning Activity Status ADL Sleeping Beds/Devices low air loss bed, turn and position system Assistive Equipment elevated on pillows Activity Assistance Minimum assistance Skin Care Preventative Intervention(s) heel(s)s elevated, padded oxygen tubing, turn and position system Standard Safety Safety level maintained High Risk Safety Room check performed Demonstrates Correct Call Light Use Yes heparin 7 unit(s)/kg/hr unit(s) Dextrose 5% Premix Diluent Dextrose 5% Premix Diluent mL Degrees Head of Bed Elevated 30 01/31/2024 5:45 EDT Heart Rate Monitored 82 bpm Systolic Blood Pressure Non-Invasive 91 mmHg Diastolic Blood Pressure Non-Invasive 72 mmHg Mean Arterial Pressure (NBP) 80 mmHg Oxygen Saturation 92 % LOW 01/31/2024 5:30 EDT Heart Rate Monitored 83 bpm Systolic Blood Pressure Non-Invasive 100 mmHg Diastolic Blood Pressure Non-Invasive 67 mmHg Mean Arterial Pressure (NBP) 78 mmHg Oxygen Saturation 94 % 01/31/2024 5:15 EDT Heart Rate Monitored 109 bpm HI Systolic Blood Pressure Non-Invasive 91 mmHg Diastolic Blood Pressure Non-Invasive 58 mmHg LOW Mean Arterial Pressure (NBP) 69 mmHg 01/31/2024 5:00 EDT Heart Rate Monitored 95 bpm Systolic Blood Pressure Non-Invasive 109 mmHg Diastolic Blood Pressure Non-Invasive 96 mmHg HI Mean Arterial Pressure (NBP) 102 mmHg Oxygen Saturation 95 % Continuous IV Infusions Levo @ 1 01/31/2024 4:53 EDT Notify date/time 01/31/2024 4:53 Provider Notified ETHAN KENYON MD Notification Method Answering service Information Communicated Consult Heart Rate Monitored 86 bpm Oxygen Saturation 94 % 01/31/2024 4:45 EDT Heart Rate Monitored 99 bpm Systolic Blood Pressure Non-Invasive 93 mmHg Diastolic Blood Pressure Non-Invasive 65 mmHg Mean Arterial Pressure (NBP) 76 mmHg 01/31/2024 4:30 EDT SARS-CoV-2 PCR Negative FLU A PCR Negative FLU B PCR Negative RSV PCR Negative Heart Rate Monitored 71 bpm Systolic Blood Pressure Non-Invasive 87 mmHg LOW Diastolic Blood Pressure Non-Invasive 71 mmHg Mean Arterial Pressure (NBP) 78 mmHg Continuous IV Infusions Levo @ 3 01/31/2024 4:18 EDT Heart Rate Monitored 93 bpm Respiratory Rate 18 br/min Systolic Blood Pressure Non-Invasive 86 mmHg LOW Diastolic Blood Pressure Non-Invasive 63 mmHg Mean Arterial Pressure (NBP) 71 mmHg Reason For Taking VItal Signs Routine Primary Pain Intensity 0 Primary Pain Nonverbal Response Nods No Pain Scale Type 0-10 Pain scale Monitor Alarms On and Limits Checked Nail Bed Color Horse Pasture Capillary Refill < 2 seconds Heart Rhythm Irregular Dorsalis Pedis Pulse, Left 1+ Thready Dorsalis Pedis Pulse, Right 1+ Thready Posttibial Pulse, Left 1+ Thready Posttibial Pulse, Right 1+ Thready Radial Pulse, Left 1+ Thready Radial Pulse, Right 1+ Thready Pretibial edema Bilateral Edema Ratin+ mild/4mm Cardiac Rhythm Atrial fibrillation Monitoring Lead II, V3/MCL3 Alarms On and Functional Yes Heart Rate Alarm Set At - Low 50 Heart Rate Alarm Set At - High 120 NSBP Alarm Low 90 NSBP Alarm High 160 HI Respirations Unlabored Respiratory Pattern Regular Breath Sounds Auscultated Anterior only All Lobes Breath Sounds Clear, Equal Oxygen Therapy Nasal cannula 0L-6L Oxygen Saturation 94 % Oxygen Flow Rate 2 Abdomen Description Symmetric, Rounded Abdomen Palpation Non-Tender Bowel Sounds All Quadrants Present Facial Movement Makes facial grimaces All Extremity Description Normal for ethnicity Skin Temperature Warm Temperature All Extremities Warm Skin Description Dry Skin Integrity Pressure points intact Skin Turgor Non-Elastic Mucous Membrane Color Horse Pasture Mucous Membrane Description Moist Hand Right 01/30/2024 20 gauge Peripheral IV Activity: Assessed Peripheral IV Dressing Condition: Loose Peripheral IV Dressing Activity: Changed, Transparent dressing Peripheral IV Line Status/Patency: Flushes easily, Aspirated, Good blood return Peripheral IV Line Care: Secured with tape Peripheral IV Site Condition: No complications Peripheral IV Equipment: PRN Adaptor Antecubital Left 01/30/2024 18 gauge Peripheral IV Activity: Assessed Peripheral IV Dressing Condition: Clean, Dry, Intact Peripheral IV Dressing Activity: Transparent dressing Peripheral IV Line Status/Patency: Flushes easily Peripheral IV Line Care: Secured with tape Peripheral IV Site Condition: No complications Peripheral IV Equipment: IV Pump Neurological Language Able to speak clearly, Follows simple commands Neurological Symptoms Patient denies Gait Unable to assess Extremity Movement Equal Swallowing Difficulty None Characteristics of Communication Appropriate Characteristics of Speech Clear Facial Symmetry Symmetric Level of Consciousness Alert Aspiration Risk None Eye Opening Response Luis Felipe Spontaneously Best Motor Response [place] Obeys simple commands Best Verbal Response [place]ardon Oriented Luis Felipe Coma Score 15 CLARA Yes Left Pupil Description Regular, Round Right Pupil Description Regular, Round Left Pupil Reaction Brisk Right Pupil Reaction Brisk Pupil Size, Left 2 mm Pupil Size, Right 2 mm Strength All Extremities Strong Left Upper Extremity Sensation Intact Right Upper Extremity Sensation Intact Left Lower Extremity Sensation Intact Right Lower Extremity Sensation Intact CN V Facial Sensation Light touch equal bilaterally CN VII Facial Expression and Symmetry Facial movement symmetrical CN VIII Hearing Spoken word equally audible left/right CN IX, X Swallowing, Gag Reflex Swallowing present Affect/Behavior Appropriate, Calm, Cooperative Orientation Oriented x 4, Follows simple commands Positioning Repositioned right side, Repositions self, Encouraged/reinforced importance of turning Activity Status ADL Resting Beds/Devices low air loss bed, turn and position system Assistive Equipment elevated on pillows Activity Assistance Minimum assistance Skin Care Preventative Intervention(s) heel(s)s elevated, padded oxygen tubing, turn and position system Standard Safety Safety level maintained High Risk Safety Room check performed Demonstrates Correct Call Light Use Yes heparin Begin Bag 2.5 mL unit(s) Dextrose 5% Premix Diluent Begin Bag 250 mL mL Degrees Head of Bed Elevated 30 01/31/2024 4:17 EDT codeine-guaifenesin 10 mL mL 01/31/2024 4:00 EDT Heart Rate Monitored 89 bpm 01/31/2024 3:47 EDT Calcium Ionized 1.07 mmol/L LOW Lactic Acid Lvl 1.2 mmol/L 01/31/2024 3:46 EDT WBC 13.2 10^3/mcL HI RBC 5.39 10^6/mcL Hgb 14.0 G/dL Hct 42.8 % MCV 79.5 fL LOW MCH 25.9 pg LOW MCHC 32.6 G/dL RDW 16.3 % HI Platelet 270 10^3/mcL MPV 7.0 fL Neutrophil % 64.2 % Lymphocyte % 22.7 % Monocyte % 11.0 % Eosinophil % 1.1 % Basophil % 1.0 % Neutrophil, Absolute 8.5 10^3/mcL HI Lymphocyte, Absolute 3.0 10^3/mcL Monocyte, Absolute 1.4 10^3/mcL Eosinophil, Absolute 0.1 10^3/mcL Basophil, Absolute 0.1 10^3/mcL APTT 26.2 seconds Protime 14.7 seconds HI PT International Ratio 1.3 ratio NA Glucose Level 133 mg/dL HI Sodium Level 137 mEq/L Potassium Level 3.6 mEq/L Chloride 100 mEq/L CO2 29 mEq/L Electrolyte Balance 8.0 mEq/L BUN 21.0 mg/dL Creatinine Lvl (s) 1.87 mg/dL HI BUN/Creatinine Ratio 11.2 ratio Calcium Lvl 8.8 mg/dL Magnesium Lvl 1.5 mg/dL LOW Phosphorus 3.1 mg/dL Total Protein 6.7 G/dL Albumin Level 3.0 G/dL LOW Globulin 3.7 G/dL A/G Ratio 0.8 ratio LOW Bili Total 0.40 mg/dL Alk Phos 77 U/L AST/SGOT 12 U/L ALT/SGPT <8 U/L LOW GFR Non- 38 ml/min/1.73sqm NA GFR 46 ml/min/1.73sqm NA High Sensitivity Troponin I 4 ng/L Culture Blood See Result (In Progress) Culture Blood See Result (In Progress) Creatinine Clearance Calc 46.05 mL/min albuterol-ipratropium 3 mL mL 01/31/2024 3:42 EDT Peripheral Pulse Rate 92 bpm Heart Rate Monitored 92 bpm Respiratory Rate 18 br/min Respirations Unlabored Breath Sounds Auscultated Anterior only All Lobes Breath Sounds Clear Patient Effort Good Patient Participation in Treatment Cooperative Aerosol Delivery Device Small volume nebulizer Aerosol Treatment Route Mouth piece Cough and Deep Breathe Done Spontaneous Cough Yes Oxygen Saturation 94 % Respiratory Treatment Charge Aerosol treatment Level of Consciousness Alert 01/31/2024 3:30 EDT Heart Rate Monitored 98 bpm 01/31/2024 3:00 EDT Heart Rate Monitored 122 bpm HI Systolic Blood Pressure Non-Invasive 86 mmHg LOW Diastolic Blood Pressure Non-Invasive 65 mmHg Mean Arterial Pressure (NBP) 73 mmHg Reason For Taking VItal Signs Routine Oxygen Therapy Nasal cannula 0L-6L Oxygen Saturation 90 % LOW Oxygen Flow Rate 2 01/31/2024 2:56 EDT Designated Person #1 We May Share PHI MARILYN OSPINA [phone] Designated Person #1 Relationship Sibling Designated Person #2 We May Share PHI Designated Person #2 We May Share PHI Designated Person #2 Relationship Significant other Privacy Restrictions Requested None Height 175 cm Height in inches 68.9 inch(es) Admission Weight 149.1 kg Weight Lbs 328 lb Oil Trough Body Weight 70.46 kg BSA Admission 2.55 Body Mass Index 48.69 kg/m2 Patient Type Inpatient Thrombosis Risk Factors (2) Age 61-75 years old Thrombosis Risk Factor Add'l Assessment NA Thrombosis Risk Score 2 Status N/A Thoughts of Harming Others - History No Thoughts of Suicide - History No Hospital Clergy to Visit Patient Verbalizes No Spiritual Needs Sensory Deficits None Advanced Directives Unable to obtain Infectious Disease Symptoms Cough, Runny nose Infectious Disease Recent Exposure No Alcohol and Drug Use No Employee of Institutional Living No Health Care Employee No History of Exposure to TB No History of Positive Chest X-Ray for TB No History of Positive TB Skin Test No Homeless No Known Immunosuppression No Recent Immigrant No Resident of Institutional Living No Bloody Sputum No Fatigue No Fever No Loss of Appetite No Night Sweats No Persistent Cough > 3 Weeks No Weight Loss No Barriers to Learning None evident Teaching Method Explanation Preferred Spoken Language Barbadian Preferred Written Language Barb[place] Teaching Evaluation No further teaching needed Safety Brochure Information Reviewed Unable to complete Larry Kauffman Video Viewed Patient refused Information Given by Patient Patient's Current Physicians Patient's Current Physicians Belongings At Bedside Pants, Socks, T-shirt Personal Home Medications Received No home medications were brought in Belongings Sent Home None Belongings to Security/Secured in Dept None Discharge To, Anticipated Home independently Prev Test Positive/Diagnosis w/COVID-19 Yes Previous COVID-19 Positive Date 12/2023 Current Quarantine/Isolated any Illness No Any Contact with Sick Animals/Birds No Traveled Anywhere in Last 30 Days No Lost Weight Unintentionally Recently No Eat Poorly Due to Decreased Appetite No Total MST Score 0 N/A Personal Devices, Patient Valuables None Admission Note-Nursing Patient History 01/31/2024 2:48 EDT Blood Glucose, Capillary 153 mg/dL HI Blood Glucose Testing Reason Routine Temperature Oral 36.5 DegC Heart Rate Monitored 89 bpm Respiratory Rate 16 br/min Systolic Blood Pressure Non-Invasive 145 mmHg HI Diastolic Blood Pressure Non-Invasive 116 mmHg >HHI Mean Arterial Pressure (NBP) 126 mmHg Reason For Taking VItal Signs Admission Primary Pain Intensity 0 Primary Pain Nonverbal Response Nods No Pain Scale Type 0-10 Pain scale Monitor Alarms On and Limits Checked Nail Bed Color Horse Pasture Capillary Refill < 2 seconds Heart Sounds ICU S1S2 Heart Rhythm Irregular Dorsalis Pedis Pulse, Left 1+ Thready Dorsalis Pedis Pulse, Right 1+ Thready Radial Pulse, Left 1+ Thready Radial Pulse, Right 1+ Thready Pretibial edema Bilateral Edema Ratin+ mild/4mm Cardiac Rhythm Atrial fibrillation Monitoring Lead II, V1/MCL1 Alarms On and Functional Yes Heart Rate Alarm Set At - Low 50 Heart Rate Alarm Set At - High 120 NSBP Alarm Low 90 NSBP Alarm High 160 HI Respirations Unlabored Respiratory Pattern Regular Breath Sounds Auscultated Anterior only All Lobes Breath Sounds Clear, Diminished Oxygen Therapy Room air Oxygen Saturation 90 % LOW Abdomen Description Distended, Symmetric, Rounded Abdomen Palpation Non-Tender Bowel Sounds All Quadrants Present Facial Movement Makes facial grimaces All Extremity Description Normal for ethnicity Skin Temperature Warm Temperature All Extremities Warm Skin Description Dry Skin Integrity Pressure points intact Skin Turgor Non-Elastic Mucous Membrane Color Horse Pasture Mucous Membrane Description Moist Sensory Perception [place] Slightly limited Moisture [place] Occasionally moist Activity [place] Bedfast Mobility [place] Slightly limited Nutrition [place] Probably inadequate Friction and Shear [place] No apparent problem [place] Score 15 Hospital Acquired Pressure Injury Risk Low risk (score 15-18) Continuous IV Infusions LEvo @5 Hand Right 01/30/2024 20 gauge Peripheral IV Activity: Assessed Peripheral IV Dressing Condition: Clean, Dry, Intact Peripheral IV Dressing Activity: Transparent dressing Peripheral IV Line Status/Patency: Flushes easily Peripheral IV Site Condition: No complications Peripheral IV Equipment: PRN Adaptor Antecubital Left 01/30/2024 18 gauge Peripheral IV Activity: Assessed Peripheral IV Dressing Condition: Clean, Dry, Intact Peripheral IV Dressing Activity: Transparent dressing Peripheral IV Line Status/Patency: Continuous infusion Peripheral IV Site Condition: No complications Peripheral IV Equipment: IV Pump Neurological Language Able to speak clearly, Follows simple commands Neurological Symptoms Dizziness Gait Unable to assess Extremity Movement Equal Swallowing Difficulty None Characteristics of Communication Appropriate Characteristics of Speech Clear Facial Symmetry Symmetric Level of Consciousness Alert Aspiration Risk None Eye Opening Response [place] Spontaneously Best Motor Response [place] Obeys simple commands Best Verbal Response Luis Felipe Oriented [place] Coma Score 15 CLARA Yes Left Pupil Description Regular, Round Right Pupil Description Regular, Round Left Pupil Reaction Brisk Right Pupil Reaction Brisk Pupil Size, Left 2 mm Pupil Size, Right 2 mm Strength All Extremities Strong Left Upper Extremity Sensation Intact Right Upper Extremity Sensation Intact Left Lower Extremity Sensation Intact Right Lower Extremity Sensation Intact CN V Facial Sensation Light touch equal bilaterally CN VII Facial Expression and Symmetry Facial movement symmetrical CN VIII Hearing Spoken word equally audible left/right CN IX, X Swallowing, Gag Reflex Swallowing present [place] Screen Admission History of Fall in Last 3 Months [place] Yes Presence of Secondary Diagnosis [place] Yes Use of Ambulatory Aid [place] None, bedrest, wheelchair, nurse IV/PRN Adapter Fall Risk [place] Yes Gait Weak or Impaired Fall Risk [place] Normal, bedrest, immobile Mental Status Fall Risk [place] Oriented to own ability [place] Fall Risk Score 60 HI Violence Risk Confused No Violence Risk Irritable No Violence Risk Boisterous No Violence Risk Verbal Threats No Violence Risk Physical Threats No Violence Risk Attacking Objects No Violence Risk Predictor Score 0 Violence Risk Intervention None Violence Risk Current Interventions None Affect/Behavior Appropriate, Calm, Cooperative Orientation Oriented x 4 Positioning Repositioned back Activity Status ADL Awake Beds/Devices low air loss bed, turn and position system Assistive Equipment elevated on pillows Activity Assistance Minimum assistance Oral Care Independent Skin Care Preventative Intervention(s) heel(s)s elevated, turn and position system Standard Safety ID band on, Call device within reach, Bed in low position, Wheels locked, Upper/Half-Length side-rails up, Safety level maintained High Risk Safety Room check performed Demonstrates Correct Call Light Use Yes Degrees Head of Bed Elevated 30 Stool Count 0 EA 01/31/2024 2:46 EDT History and Physical History and Physical (Modified) 01/31/2024 1:43 EDT Pain Scale Assessment 0-10 Pain scale Primary Pain Intensity 0 Pain Symptoms No PEWS Behavior Assessment 0 PEWS Cardiovascular Assessment 0 PEWS Extra 0 PEWS Respiratory Assessment 0 PEWS Score 0 Individuals Taught Patient Learning Readiness Willing to learn Barriers to Learning None evident Teaching Method Explanation Teaching Evaluation Verbalizes/Nonverbally indicates understanding Reason for Transfer Medically indicated transfer Transfer Requirements Met Patient has received a medical screening, Patient will be transferred by qualified personnel, Receiving facility has agreed to accept transfer, Has available space and qualified personnel, Risks and benefits of transfer explained to patient, Risks and benefits explained [facility] commercial representative Transferring Physician MD SAMY JONES MD Receiving Facility Accepting Transfer Larry Rep. of Receiving Facility Accepting Pt Dr. hernandez Date/Time Transfer Accepted 01/30/2024 23:[address] Hernandez Date/Time Physician Accepted Patient 01/30/2024 23:10 Nurse Receiving Report Nora RN Nurse Receiving Report Nora Date/Time Nurse Received Report 01/31/2024 1:43 Date/Time Nurse Received Report 01/31/2024 1:43 Mode of Transfer Ground ambulance Required Personnel for Transfer [employer] [facility]U Discharged to Another hospital 01/31/2024 1:18 EDT Heart Rate Monitored 90 bpm Respiratory Rate 18 br/min Systolic Blood Pressure Non-Invasive 111 mmHg Diastolic Blood Pressure Non-Invasive 71 mmHg Mean Arterial Pressure (NBP) 82 mmHg Blood Pressure Method Automatic Blood Pressure Location Right arm Reason For Taking VItal Signs Routine Monitor Alarms On and Limits Checked Heart Rhythm Irregular Oxygen Therapy Room air Oxygen Saturation 91 % LOW 01/31/2024 1:07 EDT Heart Rate Monitored 85 bpm Respiratory Rate 12 br/min LOW Systolic Blood Pressure Non-Invasive 90 mmHg Diastolic Blood Pressure Non-Invasive 61 mmHg Mean Arterial Pressure (NBP) 71 mmHg Blood Pressure Method Automatic Blood Pressure Location Right arm Reason For Taking VItal Signs Routine Monitor Alarms On and Limits Checked Heart Rhythm Irregular Oxygen Therapy Room air Oxygen Saturation 93 % 01/31/2024 0:58 EDT Heart Rate Monitored 89 bpm Respiratory Rate 13 br/min LOW Systolic Blood Pressure Non-Invasive 97 mmHg Diastolic Blood Pressure Non-Invasive 64 mmHg Mean Arterial Pressure (NBP) 76 mmHg Blood Pressure Method Automatic Blood Pressure Location Right arm Reason For Taking VItal Signs Routine Monitor Alarms On and Limits Checked Heart Rhythm Irregular Oxygen Therapy Room air Oxygen Saturation 91 % LOW 01/31/2024 0:40 EDT ceftriaxone 2 gram(s) gram(s) Sodium Chloride 0.9% 100 mL mL 01/31/2024 0:37 EDT Heart Rate Monitored 74 bpm Respiratory Rate 19 br/min Systolic Blood Pressure Non-Invasive 99 mmHg Diastolic Blood Pressure Non-Invasive 68 mmHg Mean Arterial Pressure (NBP) 79 mmHg Blood Pressure Method Automatic Blood Pressure Location Right arm Reason For Taking VItal Signs Routine Monitor Alarms On and Limits Checked Heart Rhythm Irregular Oxygen Therapy Room air Oxygen Saturation 91 % LOW 01/31/2024 0:26 EDT ED Note-Nursing transport arranged 01/31/2024 0:19 EDT Patient Summary Documents 01/31/2024 0:18 EDT Heart Rate Monitored 88 bpm Respiratory Rate 17 br/min Systolic Blood Pressure Non-Invasive 80 mmHg LOW Diastolic Blood Pressure Non-Invasive 54 mmHg LOW Mean Arterial Pressure (NBP) 61 mmHg Blood Pressure Method Automatic Blood Pressure Location Right arm Reason For Taking VItal Signs Routine Monitor Alarms On and Limits Checked Heart Rhythm Irregular Oxygen Therapy Room air Oxygen Saturation 90 % LOW 01/31/2024 0:17 EDT norepinephrine Begin Bag 8 mL mg Sodium Chloride 0.9% Begin Bag 250 mL mL . Assessment and Plan [place] [employer] (ASA) physical status classification: Class IV. Anesthetic Preoperative Plan Premedication: intravenous. Anesthetic technique: General. Induction: intravenously. Maintenance airway: HFNC. Special techniques: Warming device. Special Monitoring. Postoperative pain management: Per surgeon. Risks discussed: nausea, vomiting, headache, sore throat, dental injury, hypotension, allergic reaction, serious complications. Informed consent: signed by patient. Beta Kp: Beta Kp Taken Within 24 Hrs: Yes. Digitally Signed by CIRILO MCDONOUGH DO on 02/01/2024 06:26 AM [facility] Evaluation + Plan note No data available for this section [facility] Evaluation + Plan note Future Appointments Appointment Date:11/03/2022 09:15:00 AM Scheduled Provider:ZHOU ESPINOSA Location:[facility] Appointment Type:CV SIZE ROLLER OPERATOR Appointment Date:11/08/2022 02:00:00 PM Scheduled Provider:ISADORA CORREA Location:[facility] Appointment Type:PC SIZE ROLLER OPERATOR Unassigned ED Follow Up [facility] Evaluation + Plan note Future Appointments Appointment Date:11/04/2022 08:45:00 AM Scheduled Provider: Location:[facility] Appointment Type:CV SIZE ROLLER OPERATOR Appointment Date:11/08/2022 02:00:00 PM Scheduled Provider:ISADORA CORREA Location:[facility] Appointment Type:PC SIZE ROLLER OPERATOR Unassigned ED Follow Up [facility] Evaluation + Plan note Future Appointments Appointment Date:12/13/2022 03:00:00 PM Scheduled Provider:ISADORA CORREA Location:[facility] Appointment Type:PC OV Follow Up [facility] Evaluation + Plan note Future Appointments Appointment Date:02/07/2023 02:30:00 PM Scheduled Provider:ISADORA CORREA Location[facility] Appointment Type:PC OV [facility] Evaluation + Plan note Future Appointments Appointment Date:06/20/2023 02:30:00 PM Scheduled Provider:ISADORA CORREA Location:[facility] Appointment Type:PC OV Future Scheduled Tests Laboratory* Basic Metabolic Panel 04/01/23 * A1C Hemoglobin 06/09/23 * Lipid Profile 06/09/23 * Complete Metabolic Panel 06/09/23 [facility] Evgaviotaation + Plan note Future Appointments Appointment Date:08/22/2023 12:00:00 PM Scheduled Provider: Location:[facility] Appointment Type:PF PFT w/Bronchodiltor Appointment Date:11/07/2023 02:00:00 PM Scheduled Provider:ISADORA CORREA Location:[facility] Appointment Type:PC OV Future Scheduled Tests Laboratory* Basic Metabolic Panel 04/01/23 [facility] Evaluation + Plan note Future Appointments Appointment Date:11/07/2023 02:00:00 PM Scheduled Provider:ISADORA CORREA Location:[facility] Appointment Type:PC OV Future Scheduled Tests Laboratory* Basic Metabolic Panel 04/01/23 [facility] Evaluation + Plan note Future Appointments Appointment Date:06/20/2023 10:00:00 AM Scheduled Provider:ISADORA CORREA Location:[facility] Appointment Type:PC OV Hospital Follow-Up Appointment Date:06/20/2023 02:30:00 PM Scheduled Provider:ISADORA CORREA Location:[facility] Appointment Type:PC OV Appointment Date:07/17/2023 03:15:00 PM Scheduled Provider:ZHOU ESPINOSA Location:[facility] Appointment Type:CV OV Future Scheduled Tests Laboratory* Basic Metabolic Panel 04/01/23 * A1C Hemoglobin 06/09/23 * Lipid Profile 06/09/23 * Complete Metabolic Panel 06/09/23 [facility] Evaluation + Plan note Future Appointments Appointment Date:02/13/2024 03:30:00 PM Scheduled Provider:ISADORA CORREA Location:[facility] Appointment Type:PC Wellness Annual w/Labs Future Scheduled Tests Laboratory* Basic Metabolic Panel 04/01/23 * Prostate Specific Antigen 02/07/24 * A1C Hemoglobin 02/07/24 * Lipid Profile 02/07/24 * Complete Metabolic Panel 02/07/24 [facility] Evaluation + Plan note Future Appointments Appointment Date:03/26/2024 08:00:00 PM Scheduled Provider: Location:[facility] Appointment Type: Sameer Study Appointment Date:05/14/2024 03:00:00 PM Scheduled Provider:ISADORA CORREA Location:[facility] Appointment Type:PC OV Lab Check Future Scheduled Tests Laboratory* Basic Metabolic Panel 02/07/24 * Basic Metabolic Panel 02/19/24 * Basic Metabolic Panel 04/01/23 * Magnesium Level 02/07/24 * A1C Hemoglobin 05/14/24 * Lipid Profile 05/14/24 * Complete Metabolic Panel 05/14/24 [facility] Evaluation + Plan note Future Appointments Appointment Date:04/01/2024 01:00:00 PM Scheduled Provider:DAMIAN SHRESTHA MD Location:[facility] Appointment Type:GS OV Appointment Date:05/14/2024 03:00:00 PM Scheduled Provider:ISADORA CORREA Location:[facility] Appointment Type:PC OV Lab Check Future Scheduled Tests Laboratory* Basic Metabolic Panel 02/07/24 * Basic Metabolic Panel 02/19/24 * Basic Metabolic Panel 04/01/23 * Magnesium Level 02/07/24 * A1C Hemoglobin 05/14/24 * Lipid Profile 05/14/24 * Complete Metabolic Panel 05/14/24 [facility] Evaluation + Plan note Future Appointments Appointment Date:02/13/2024 03:30:00 PM Scheduled Provider:ISADORA CORREA Location:[facility] Appointment Type: Wellness Annual w/Labs Future Scheduled Tests Laboratory* Basic Metabolic Panel 02/07/24 * Basic Metabolic Panel 02/19/24 * Basic Metabolic Panel 04/01/23 * Magnesium Level 02/07/24 [facility] Evaluation + Plan note Future Appointments Appointment Date:08/12/2024 03:00:00 PM Scheduled Provider:ISADORA CORREA Location:[facility] Appointment Type: Wellness Annual Future Scheduled Tests Laboratory* Basic Metabolic Panel 02/07/24 * Basic Metabolic Panel 02/19/24 * Magnesium Level 02/07/24 [facility] Evaluation + Plan note Future Appointments Appointment Date:10/23/2024 04:00:00 PM Scheduled Provider:ISADORA CORREA Location:[facility] Appointment Type:PC OV Appointment Date:11/08/2024 02:30:00 PM Scheduled Provider:EDY WEBER Location:[facility] Appointment Type: OV Hospital Follow Up Future Scheduled Tests Laboratory* Basic Metabolic Panel 02/07/24 * Basic Metabolic Panel 12/10/24 * Basic Metabolic Panel 02/19/24 * Magnesium Level 02/07/24 * Complete Blood Count 08/27/24 * Complete Metabolic Panel 08/27/24 * N-Terminal proBNP 08/27/24 [facility] Evaluation noteNo assessment information available [facility] Work Phone: Hospital Discharge instructions Additional Instructions Call Dr. Etienne's office on Monday to be seen later this coming week.[facility] Work Phone: Hospital Discharge instructions No data available for this section [facility] Hospital Discharge instructions Additional Instructions Chest x-ray negative. COVID and flu negative. Vapor rubs, humidifier. May use loratadine D that you have at home daily. Cough suppressants as needed. Follow-up with your doctor. Return if any worsening symptoms.[facility] Work Phone: Progress note No data available for this section [facility] Summary note* MACIEJ Rasmussen: PERFORM Event Display: Patient Summary Documents Authored Date: [facility] Summary Purpose Family History No Family History Records FoundNo Family History Records FoundNo Family History Records FoundNo Family History Records FoundNo Family History Records Found No data available for this section No data available for this section No data available for this section No data available for this section No data available for this section No data available for this section No data available for this section No data available for this section No Family History Records Found No data available for this section No data available for this section No Family History Records Found No data available for this section No data available for this section No data available for this section No data available for this section No data available for this section No data available for this section No data available for this section No Family History Records FoundNo Family History Records Found No data available for this section No Family History Records FoundNo Family History Records Found Advance Directives No Advanced Directives Records Found Advance Directive Response Recorded Date/ Time Living Will No October 23, 2022 6 :09am Power of Food Consultant No October 23, 2022 6:09am Advance Directive Response Recorded Date/ Time Living Will No February 12, 2023 7:08am Power of Food Consultant No January 7:08am Chief Complaint and Reason for Visit Chief Complaint CHEST PAIN Chief Complaint CHEST PAIN cough Additional Source Comments (unrecognized sect ion and content) No Status Records FoundNo Status Records FoundNo Status Records FoundNo Status Records FoundNo Status Records FoundNo Status Records FoundNo Status Records FoundNo Status Records FoundNo Status Records FoundNo Status Records FoundNo Status Records Found INFORMATION SOURCE (unrecogn ized section and content) DATE CREATED AUTHOR 02/15/2021 [facility] DATE CREATED AUTHOR AUTHOR'S ORGANIZ ATION 08/25/2021 [facility] DATE CREATED AUTHOR AUTHOR'S ORGANIZ ATION 2021 [employer] DATE CREATED AUTHOR AUTHOR'S ORGANIZ ATION 06/07/2022 [facility] DATE CREATED AUTHOR AUTHOR'S ORGANIZ ATION 08/17/2022 [facility] DATE CREATED AUTHOR AUTHOR'S ORGANIZ ATION 10/13/[address] [facility] DATE CREATED AUTHOR AUTHOR'S ORGANIZ ATION 02/02/2024 [facility] ([place] DATE CREATED AUTHOR AUTHOR'S ORGANIZ ATION 10/07/2024 [facility] DATE CREATED AUTHOR AUTHOR'S ORGANIZ ATION 10/23/2024 [facility] DATE CREATED AUTHOR AUTHOR'S ORGANIZ ATION 10/26/2024 [facility] DATE CREATED AUTHOR AUTHOR'S ORGANIZ ATION 10/28/2024 [facility] Care Team (unrecognized sect ion and content) Care Team Personnel Name: PHYSICIAN, NONE Position: Physician Member Role: Primary Care Physician Name: MALORIE PEGUERO MD Position: ED Physician Member Role: ED Physician Address: Address: [facility] [address] [place] [address]- Name: SHAHEEN Sinha Position: AO RN Member Role: ED RN Care Team Related Persons Name: MARILYN OSPINA Care Team Personnel Name: PHYSICIAN, NONE Position: Physician Member Role: Primary Care Physician Name: JEREMIE MCCORMACK MD Position: ED Physician Member Role: ED Physician Address: Address: [facility] [address] [place] [address]- [place] Name: Halley Staples RN Position: AO RN Member Role: ED RN Name: Nadya Montenegro RN Position: AO RN Member Role: ED RN Care Team Related Persons Name: MARILYN OSPINA Care Teams (unrecognized sec tion and content) Team Status: Active Member Role Status Dates Dr. Ollie Bright MD Family Provider Active ZACARIAS COHN Primary Care Provider Active Team Status: Inactive Member Role Status Dates Dr. Jameel Brown DO Emergency Provider Active ROMAIN ADAMES Primary Care Provider Active Team Status: Active Member Role Status Dates Dr. Ollie Bright MD Family Provider Active Isadora Correa SIZE ROLLER OPERATOR, SIZE ROLLER OPERATOR-C Primary Care Provider Active Team Status: Inactive Member Role Status Dates Dr. Jameel Brown , Attending Provider, Emergency Provider Active ROMAIN ADAMES Primary Care Provider Active Team Status: Inactive Member Role Status Dates Dr. Nguyễn Al , Emergency Provider Active Isadora Correa SIZE ROLLER OPERATOR, SIZE ROLLER OPERATOR-C Primary Care Provider Active Goals (unrecognized section and content) Goals may be documented in a n alternate section FOR RECORDS PERTAINING TO PATIENTS WHO ARE OR HAVE BEEN ENROLLED IN A CHEMICAL DEPENDENCY/SUBSTANCEABUSE PROGRAM, SOME INFORMATION MAY BE OMITTED. This clinical summary was aggregated from multiple sources. Caution should be exercised in using it in the provision of clinical care. This summary normalizes information from multiple sources, and as a consequence, information in this document may materially change the coding, format and clinical context of patient data. In addition, data may be omitted in some cases. CLINICAL DECISIONS SHOULD BE BASED ON THE PRIMARY CLINICAL RECORDS. [employer] provides no warranty or guarantee of the accuracy or completeness of information in this document.
--- OUTSIDE RECORDS SUMMARY | 2024-10-30 07:03 | XMS RPT_ITS | CCD ---
Author Organization [facility] [place] [facility] Care Team Providers Care Math And Science Instructor Name Role Phone Zacarias Cohn Referring Unavailable [...] Attending Unavailable ISADORA CORREA Primary Care [facility]ending [facility] Care Unavailable BETZAIDA PETTIT, DEMI Attending [facility]available [facility] Unavailable BETZAIDA PETTIT, DEMI Attending [facility] Care Unavailable SAMY JONES Attending [facility] Care Unavailable CINDY HERNANDEZ MD Consulting Unavailable DR OLLIE BROOKE MD Attending [facility]abl [facility] Care Unavailable SLOANE AGARWAL DO Attending Unavailable [facility], [place] Primary Care Unavailable SLOANE AGARWAL DO Attending Unavailable [facility] Admitting Unavailable [facility] Attending Un[facility] Primary Care Unavailable KAVYA HSE MANAGER-REFRIGERATION ENGINEERJONNY Attending U julio cesar YANES HSE MANAGER-REFRIGERATION ENGINEERHELEN Attending Unava ilable [facility] HSE MANAGER-REFRIGERATION ENGINEER, [facility] Care Unavail able LORSON HSE MANAGER-REFRIGERATION ENGINEER, [place] Attending Unavail able [facility] HSE MANAGER-REFRIGERATION ENGINEER, [place] Primary Care Unavail able LORSON HSE MANAGER-REFRIGERATION ENGINEER, [place] Attending Unavail able [facility]SON HSE MANAGER-REFRIGERATION ENGINEER, [place] Primary Care Unavail able [facility]SON HSE MANAGER-REFRIGERATION ENGINEER, [place] Attending Unavail able [facility]SON HSE MANAGER-REFRIGERATION ENGINEER, [place] Primary Care Unavail able L[facility]SON HSE MANAGER-REFRIGERATION ENGINEER, [place] Primary Care Unavail able [facility] HSE MANAGER-REFRIGERATION ENGINEER, [place] Attending Unavail able L[facility]SON HSE MANAGER-REFRIGERATION ENGINEER, [place] Attending Unavail able [facility]SON HSE MANAGER-REFRIGERATION ENGINEER, [place] Primary Care Unavail able [facility] HSE MANAGER-REFRIGERATION ENGINEER, [place] Attending Unavail able [facility] HSE MANAGER-REFRIGERATION ENGINEER, [facility] Care Unavail able CINDY HERNANDEZ MD Consulting Unavailable DR SAMY JONES MD, V Attending Unavai lable [facility] HSE MANAGER-REFRIGERATION ENGINEER, [facility] Care Unavail able DELORES MURO DO Attending Unavailable [facility] HSE MANAGER-REFRIGERATION ENGINEER, [facility] Care Unavail able DR WLINER JOE MD Attending Unavailabl e [facility] HSE MANAGER-REFRIGERATION ENGINEER, [facility] Care Unavail able CIRILO PATEL DO Attending Unavailable [facility] HSE MANAGER-REFRIGERATION ENGINEER, [facility] Care Unavail able JAKE MAXWELL Attending Unavailable JAKE MAXWELL Primary Care Unavailable JAKE MAXWELL Admitting Unavailable MOY WATTS MD Attending U julio cesar PECK MD, JANAE Consulting Unavailable ROBERT SCHMITZ Admitting Unavailable [facility] HSE MANAGER-REFRIGERATION ENGINEER, [facility] Unavail michele ZIMMER MD, ARIEL Consulting Unavailable NATALY PETTIT, BRENNON Attending Unavailable DAVID PETTIT, CINDY Aden Admitting Unavailable HELENA GAINES MD Consulting Unavailable [facility] HSE MANAGER-REFRIGERATION ENGINEER, [facility] Unavail michele HERRMANN MD, DR UPTON Consulting Unavailable DAVID PETTIT, CINDY Aden Consulting Unavailable NANI QUINTANA DO Attending Unavailable LUPE STONE, DR ORTIZ Consulting Unavailable [facility] HSE MANAGER-REFRIGERATION ENGINEER, [facility] Unavail able NANI QUINTANA DO Admitting Unavailable CORRY STONE, CHANTAL Reardon Consulting Unavailable TOMAS PETTIT, MELISSA Epstein Consulting Unavailable [facility] Consulting Unavailable Sunny HONING MACHINE OPERATOR, [facility] Unavailable Dolly Walter Attending Unavailable Sunny HONING MACHINE OPERATOR, [facility] Unavailable Dolly Walter Attending Unavailable Allergies Allergy Classification Reported Allergen(s) Allergy Type Date of Onset Reaction(s) Facility (4 sources) HMG-CoA reductase inhibitor; 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: [statins] Propensity to adverse reactions to drug myalgia [facility] Medications Current Medications Medication Drug Class(es) Dates [...] every six hours as needed for pain Molena 325- 5 mg oral tablet Dose = 1 tab(s), Oral, q6h, PRN As needed for severe pain, X 3 day(s), # 12 tab(s), 0 Refill(s), Contusion of rib on right side, 144.4 Start Date: 05/05/23 Stop Date: 05/08/23 Status: Ordered Start: 07-15-2022 End: 07-17-2022 take 1 tablet by mouth every six hours as needed for pain Molena 325- 5 mg oral tablet Dose = [...] day(s), # 28 tab(s), 0 Refill(s), Pharmacy: [facility]/pharmacy #[id number], Post-op pain, 177.8, cm, 10/17/24 1:29:00 [...] q6h, # 120 EA, 0 Refill(s), Pharmacy: [facility]/pharmacy #[id number], 176, cm, 08/27/24 14:57:00 EDT, Height, kg, 08/27/24 14:57:00 EDT, Dosing Weight Start Date: 08/27/24 Status: Ordered Quantity: 120.0 Unit: EA Repeat number: 1 allopurinol 100 mg oral tablet (20 sources) Xanthine Oxidase Inhibitor Start: 12-12-2023 allopurinol 100 mg oral tablet Dose : 100 mg = 1 tab(s), Oral, qDay, # 90 tab(s), 3 Refill(s), Pharmacy: [facility], 177.8, cm, 11/28/23 13:54:00 EDT, Height, kg, 11/28/23 13:54:00 EDT, Dosing Weight Start Date: 12/12/23 Status: Ordered Quantity: 90.0 Unit: tab(s) Repeat number: 4 Start: 08-08-2023 allopurinol 10 0 mg oral tablet Dose : 100 mg = 1 tab(s), Oral, qDay, # 90 tab(s), 3 Refill(s), [facility]: [id number], 178.5, cm, 08/08/23 13:32:00 EDT, Height, kg, 08/08/23 13:32:00 EDT, Dosing Weight Start Date: 08/08/23 Status: Ordered Start: 10-23-2022 End: 02-06-2023 allopurinol 100 mg oral tabl et Dose : 100 mg = 1 tab(s), Oral, qDay, # 90 tab(s), 3 Refill(s), [facility]: [facility] #[id number], 175.3, cm, 12/23/22 6:37:00 EDT, Height, kg, [...] Daily, # 100 tab(s), 3 Refill(s), [id number], 178.5, cm, 08/08/23 13:32:00 EDT, Height, kg, 08/08/23 13:32:00 EDT, Dosing Weight Start Date: 08/09/23 Status: Ordered bempedoic acid 180 mg oral tablet (4 sources) Start: 05-14-2024 Nexletol 180 m g oral tablet Dose : 180 mg = 1 tab(s), Oral, qDay, # 30 tab(s), 5 Refill(s), Pharmacy: [facility], 175, cm, 05/14/24 13:59:00 EST, [...] device, # 1 EA, 0 Refill(s), Pharmacy: [facility], 177.8, cm, 11/28/23 13:54:00 EDT, Height, 151.4, kg, 11/28/23 13:54:00 EDT, Dosing Weight Start Date: 12/12/23 Status: Ordered Quantity: 1.0 Unit: EA Repeat number: 1 Start: 12-12-2023 Blood Glucose Test Machine See Instructions, Use glucometer daily as directed for blood sugar checks. Dispense insurance preferred device, # 1 EA, 0 Refill(s), Pharmacy: [facility], 177.8, cm, 11/28/23 13:54:00 EDT, Height, 151.4, kg, 11/28/23 13:54:00 EDT, Dosing Weight Start Date: 12/12/23 Status: Ordered cetirizine hydrochloride 10 mg oral tablet (12 sources) Histamine-1 Receptor Antagonist Start: 08-08-2023 End: 12-06-2024 cetirizine 10 mg oral tablet Dose : 10 mg = 1 tab(s), Oral, Daily, # 90 tab(s), 3 Refill(s), Pharmacy: [facility], 177.8, cm, 11/28/23 13:54:00 EDT, Height, [...] BID, # 180 cap(s), 4 Refill(s), Pharmacy: [facility]/pharmacy #[id number], 177.8, cm, 10/02/24 6:28:00 EDT, Height, kg, 10/02/24 6:28:00 EDT, Dosing Weight Start Date: 10/04/24 Status: Ordered Quantity: 180.0 Unit: cap(s) Repeat number: 5 Start: 09-24-2024 Tikosyn 250 mc g oral capsule Dose : 250 mcg = 1 cap(s), Oral, BID, # 180 cap(s), 1 Refill(s), Pharmacy: [facility]/pharmacy #[id number], 175, cm, 09/05/24 16:01:00 EDT, Height, kg, 09/05/24 16:01:00 EDT, Dosing Weight Start Date: 09/24/24 Status: Ordered Quantity: 180.0 Unit: cap(s) Repeat number: 2 Start: 12-12-2023 Tikosyn 250 mc g oral capsule Dose : 250 mcg = 1 cap(s), Oral, BID, # 180 cap(s), 3 Refill(s), Pharmacy: [facility]/pharmacy #[id number], 177.8, cm, 11/28/23 13:54:00 EDT, Height, kg, 11/28/23 13:54:00 EDT, Dosing Weight Start Date: 12/12/23 Status: Ordered Quantity: 180.0 Unit: cap(s) Repeat number: 4 Start: 06-09-2023 Tikosyn 250 mc g oral capsule Dose : 250 mcg = 1 cap(s), Oral, BID, # 60 cap(s), 2 Refill(s), [facility]: [facility] #[id number], 176, cm, 06/07/23 13:36:00 EST, Height, kg, 06/07/23 13:36:00 EST, Dosing Weight Start Date: 06/09/23 Status: Ordered 0.5 ml dulaglutide 3 mg/ml auto-injector (10 sources) GLP-1 Receptor Agonist Start: 04-15-2024 End: 10-02-2025 inject 1 dose by subcutaneous injection every week Morrisity Pen 1.5 mg/0.5 mL subcutaneous solution Dose : 1.5 mg =, Subcutaneous, qWeek, # 12 EA, 3 Refill(s), Pharmacy: [facility]/pharmacy #[id number], 177.8, cm, 10/02/24 6:28:00 EDT, Height, [...] PCP, # 4 EA, 3 Refill(s), Pharmacy: [facility], 177.8, cm, 11/28/23 13:54:00 EDT, Height, kg, 11/28/23 13:54:00 EDT, Dosing Weight Start Date: 12/12/23 Stop Date: 04/02/24 Status: Ordered Start: 08-21-2023 inject 0.5 mL by sub cutaneous injection every week Trulicity Pen 0.75 mg/0.5 mL subcutaneous solution Dose : 0.75 mg = 0.5 mL, Subcutaneous, qWeek, # 2.5 mL, 5 Refill(s), 0.5 mL/Pen, [facility]acy: [facility] #[id number], 177.8, cm, 08/09/23 21:07:00 EDT, Height, kg, [...] qDay, # 30 cap(s), 3 Refill(s), Pharmacy: [facility], 177.8, cm, 11/28/23 13:54:00 EDT, Height, kg, 11/28/23 13:54:00 EDT, Dosing Weight Start Date: 12/12/23 Status: Ordered Start: 08-08-2023 End: 08-02-2024 FLUoxetine 10 mg oral capsul e Dose : 10 mg = 1 cap(s), Oral, qDay, # 30 cap(s), 0 Refill(s), Pharmacy: [facility], 175, cm, 05/14/24 13:59:00 EST, Height, kg, 05/14/24 13:57:00 EST, Dosing Weight Start Date: 05/14/24 Status: Ordered Quantity: 30.0 Unit: cap(s) Repeat number: 1 Start: 06-09-2023 FLUoxetine 10 mg oral capsule Dose : 10 mg = 1 cap(s), Oral, qDay, # 30 cap(s), 2 Refill(s), [facility]acy: [facility] #[id number], 176, cm, 06/07/23 13:36:00 EST, Height, kg, 06/07/23 13:36:00 EST, Dosing Weight Start Date: 06/09/23 Status: Ordered Start: 01-31-2023 FLUoxetine 20 mg oral tablet Dose : 20 mg = 1 tab(s), Oral, qDay, # 90 tab(s), 3 Refill(s), [facility]acy: [facility] #[id number], 175.3, cm, 12/23/22 6:37:00 EDT, Height, kg, 12/23/22 6:38:00 EDT, Dosing Weight Start Date: 01/31/23 Status: Ordered Start: 12-13-2022 FLUoxetine 20 mg oral tablet Dose : 20 mg = 1 tab(s), Oral, qDay, # 30 tab(s), 3 Refill(s), [facility]acy: [facility] #[id number], 175.3, cm, 12/13/22 14:43:00 EDT, Height Start Date: 12/13/22 Status: Ordered Start: 11-08-2022 FLUoxetine 10 mg oral tablet Dose : 10 mg = 1 tab(s), Oral, qDay, # 30 tab(s), 2 Refill(s), [facility]: [facility] #[id number], 177, cm, 11/08/22 13:50:00 EDT, Height Start Date: 11/08/22 Status: Ordered 120 actuat fluticasone propionate 0.11 mg/actuat metered dose inhaler (3 sources) Corticosteroid Start: 08-08-2023 End: 08-02-2024 take 2 puff(s) by inhalation twice daily Flovent HFA 110 mcg/inh inhalation aerosol 2 puff(s), Inhalation, BID, # 3 EA, 3 Refill(s), Pharmacy: [facility] #[id number], 178.5, cm, 08/08/23 13:32:00 EDT, Height, kg, [...] daily., # 30 tab(s), 0 Refill(s), Pharmacy: [facility], 175, cm, 02/13/24 15:03:00 EDT, Height, kg, 02/13/24 15:03:00 EDT, Dosing Weight Start Date: 03/07/24 Status: Ordered Quantity: 30.0 Unit: tab(s) Repeat number: 1 Start: 02-09-2024 furosemide 20 mg oral tablet Dose : 20 mg = 1 tab(s), Oral, Daily, Take 2 tablets daily for the first 3 days followed by 1 tablet daily., # 30 tab(s), 3 Refill(s), Pharmacy: [facility]/pharmacy #[id number], 175, cm, 02/09/24 15:58:00 EDT, Height, kg, 02/09/24 15:58:00 EDT, Dosing Weight Start Date: 02/09/24 Status: Ordered Start: 12-12-2023 take 1 tablet by brandon th in the morning, then take 0.5 tablet by mouth in the evening Lasix 40 mg oral tablet See Instructions, 1 tab in AM and 0.5 tab in PM, # 135 tab(s), 3 Refill(s), Pharmacy: [facility], 177.8, cm, 11/28/23 13:54:00 EDT, Height, kg, 11/28/23 13:54:00 EDT, Dosing Weight Start Date: 12/12/23 Status: Ordered Start: 08-08-2023 take 1 tablet by brandon th in the morning, then take 0.5 tablet by mouth in the evening Lasix 40 mg oral tablet See Instructions, 1 tab in AM and 0.5 tab in PM, # 135 tab(s), 3 Refill(s), [id number], 178.5, cm, 08/08/23 13:32:00 EDT, Height, kg, 08/08/23 13:32:00 EDT, Dosing Weight Start Date: 08/08/23 Status: Ordered Start: 11-14-2022 take 1 tablet by brandon th in the morning, then take 0.5 tablet by mouth in the evening Lasix 40 mg oral tablet See Instructions, 1 tab in AM and 0.5 tab in PM, # 135 tab(s), 0 Refill(s), [facility] #[id number], 177, cm, 11/08/22 13:50:00 EDT, Height, kg, [...] 3 Refill(s), 12/25/24 12:39:00 PM EDT, Pharmacy: [facility], 182, cm, 06/12/24 13:53:00 EST, Height, [...] 3 Refill(s), 05/31/23 2:41:00 PM EST, [facility] #[id number], 175.3, cm, 12/23/22 6:37:00 EDT, Height, kg, [...] qDay, # 30 tab(s), 6 Refill(s), [facility] #[id number], 175.3, cm, 12/23/22 6:37:00 EDT, Height, kg, 12/23/22 6:38:00 EDT, Dosing Weight Start Date: 12/23/22 Status: Ordered metFORMIN hydrochloride 500 mg oral tablet (7 sources) Biguanide Start: 01-31-2023 MetFORMIN (Eqv-Fortamet) 500 mg oral tablet, EXTENDED RELEASE Dose : 500 mg = 1 tab(s), Oral, qDay, # 90 tab(s), 3 Refill(s), Pharmacy: [facility] #[id number], 175.3, cm, 12/23/22 6:37:00 EDT, Height, kg, [...] day(s), # 30 EA, 5 Refill(s), Pharmacy: [facility] #[id number], 177, cm, 11/08/22 13:50:00 EDT, Height Start Date: 11/08/22 Stop Date: 05/07/23 Status: Ordered nystatin [id number] unt/ml topical cream (1 source) Polyene Antifungal Start: 01-12-2024 End: 02-01-2024 nystatin 100,000 units/g topical cream Apply 1 frida, Topical, BID, X 10 day(s), # 30 gram(s), 1 Refill(s), [id number], Cream, 177, cm, 01/12/24 9:42:00 EDT, Height, 148.6, kg, 01/12/24 9:42:00 EDT, Dosing Weight Start Date: 01/12/24 Stop Date: 02/01/24 Status: Ordered omeprazole 40 mg delayed release oral capsule (20 sources) Proton Pump Inhibitor Start: 09-19-2024 omeprazole 40 mg oral delayed release capsule Dose : 40 mg = 1 cap(s), Oral, BID, before a meal., # 180 cap(s), 0 Refill(s), [id number], 175, cm, 09/05/24 16:01:00 EDT, Height, kg, 09/05/24 16:01:00 EDT, Dosing Weight Start Date: 09/19/24 Status: Ordered Quantity: 180.0 Unit: cap(s) Repeat number: 1 Start: 12-12-2023 omeprazole 40 mg oral delayed release capsule Dose : 40 mg = 1 cap(s), Oral, BID, before a meal., # 180 cap(s), 3 Refill(s), Pharmacy: [facility], 177.8, cm, 11/28/23 13:54:00 EDT, Height, kg, 11/28/23 13:54:00 EDT, Dosing Weight Start Date: 12/12/23 Status: Ordered Quantity: 180.0 Unit: cap(s) Repeat number: 4 Start: 08-08-2023 omeprazole 40 mg oral delayed release capsule Dose : 40 mg = 1 cap(s), Oral, BID, before a meal., # 180 cap(s), 3 Refill(s), Pharmacy: [facility] #[id number], 178.5, cm, 08/08/23 13:32:00 EDT, Height, kg, 08/08/23 13:32:00 EDT, Dosing Weight Start Date: 08/08/23 Status: Ordered Start: 05-26-2023 omeprazole 40 mg oral delayed release capsule Dose : 40 mg = 1 cap(s), Oral, BID, before a meal. sent in absence of PCP, # 60 cap(s), 0 Refill(s), Pharmacy: [facility] #[id number], 152.8, cm, 05/12/23 11:14:00 EST, Height, kg, 05/12/23 11:14:00 EST, Dosing Weight Start Date: 05/26/23 Status: Ordered Start: 03-15-2023 End: 05-14-2023 omeprazole 40 mg oral delaye d release capsule Dose : 40 mg = 1 cap(s), Oral, BID, before a meal, # 60 cap(s), 1 Refill(s), Pharmacy: [facility] #[id number], 175.9, cm, 02/15/23 13:56:00 EDT, Height, kg, [...] 0 Refill(s), 05/24/24 2:36:00 PM EST, Pharmacy: [facility]/pharmacy #[id number], 175, cm, 05/14/24 13:59:00 EST, Height, 143.9, kg, 05/14/24 13:57:00 EST, Dosing Weight Start Date: 05/14/24 Stop Date: 05/24/24 Status: Ordered Quantity: 30.0 Unit: tab(s) Repeat number: 1 polyethylene glycol 3350 wit h electrolytes oral powder for reconstitution (2 sources) Start: 02-15-2023 polyethylene g lycol 3350 with electrolytes oral powder for reconstitution See Instructions, As directed by provider at [facility] # 1 EA, 0 Refill(s), Pharmacy: [facility] #[id number], Colon cancer screening, 175.9, cm, 02/15/23 13:56:00 EDT, Height, kg, 02/15/23 13:56:00 EDT, Dosing Weight Start Date: 02/15/23 Status: Ordered potassium chloride 20 meq or al tablet (11 sources) Start: 10-04-2024 Potassium Chlo ride (Eqv-K-Tab) 20 mEq oral tablet, extended release Dose : 20 mEq = 1 tab(s), Oral, qDay, Take with food, # 90 tab(s), 3 Refill(s), Pharmacy: [facility] #[id number], 177.8, cm, 10/02/24 6:28:00 EDT, Height, kg, 10/02/24 6:28:00 EDT, Dosing Weight Start Date: 10/04/24 Status: Ordered Quantity: 90.0 Unit: tab(s) Repeat number: 4 Start: 02-09-2024 Potassium Chlo ride (Eqv-K-Tab) 10 mEq oral tablet, extended release Dose : 10 mEq = 1 tab(s), Oral, qDay, # 30 tab(s), 3 Refill(s), Pharmacy: [facility] #[id number], 175, cm, 02/09/24 15:58:00 EDT, Height, [...] Daily, # 100 tab(s), 3 Refill(s), Pharmacy: [facility], 175, cm, 02/13/24 15:03:00 EDT, Height, [...] qHS, # 90 tab(s), 11 Refill(s), Pharmacy: [facility]/pharmacy #[id number], 177.8, cm, 10/02/24 6:28:00 EDT, Height, 140.3, kg, 10/02/24 6:28:00 EDT, Dosing Weight Start Date: 10/04/24 Status: Ordered Quantity: 90.0 Unit: tab(s) Repeat number: 12 Start: 12-12-2023 Xarelto 20 mg oral tablet Dose : 20 mg = 1 tab(s), Oral, qHS, # 90 tab(s), 3 Refill(s), Pharmacy: [facility], 177.8, cm, 11/28/23 13:54:00 EDT, Height, 151.4, kg, 11/28/23 13:54:00 EDT, Dosing Weight Start Date: 12/12/23 Status: Ordered Quantity: 90.0 Unit: tab(s) Repeat number: 4 Start: 08-08-2023 Xarelto 20 mg oral tablet Dose : 20 mg = 1 tab(s), Oral, qHS, # 90 tab(s), 3 Refill(s), [facility][id number], 178.5, cm, 08/08/23 13:32:00 EDT, Height, 156.7, kg, 08/08/23 13:32:00 EDT, Dosing Weight Start Date: 08/08/23 Status: Ordered Start: 10-23-2022 End: 02-06-2023 Xarelto 20 mg oral tablet Do se : 20 mg = 1 tab(s), Oral, qHS, # 90 tab(s), 3 Refill(s), [facility] #[id number], 175.3, cm, 12/23/22 6:37:00 EDT, Height, 144, kg, 12/23/22 6:38:00 EDT, Dosing Weight Start Date: 01/31/23 Status: Ordered rosuvastatin calcium 20 mg oral tablet (3 sources) HMG-CoA Reductase Inhibitor Start: 12-12-2023 rosuvastatin 20 mg oral tablet Dose : 20 mg = 1 tab(s), Oral, Daily, # 100 tab(s), 3 Refill(s), Pharmacy: [facility], 177.8, cm, 11/28/23 13:54:00 EDT, [...] BID, # 180 tab(s), 3 Refill(s), Pharmacy: [facility], 177.8, cm, 11/28/23 13:54:00 EDT, Height, kg, 11/28/23 13:54:00 EDT, Dosing Weight Start Date: 12/12/23 Stop Date: 12/06/24 Status: Ordered Start: 03-22-2023 take 1 tablet by brandon th twice daily sacubitril-valsartan 49 mg-51 mg oral tablet Dose = 1 tab(s), Oral, BID, # 60 tab(s), 3 Refill(s), [facility]: [facility] #[id number], 175.3, cm, 03/22/23 13:31:00 EDT, Height, kg, 03/22/23 13:31:00 EDT, Dosing Weight Start Date: 03/22/23 Status: Ordered spironolactone 25 mg oral tablet (19 sources) Aldosterone Antagonist Start: 08-08-2023 End: 12-06-2024 spironolactone 25 mg oral tablet Dose : 25 mg = 1 tab(s), Oral, qDay, # 90 tab(s), 3 Refill(s), Pharmacy: [facility], 177.8, cm, 11/28/23 13:54:00 EDT, Height, kg, 11/28/23 13:54:00 EDT, Dosing Weight Start Date: 12/12/23 Stop Date: 12/06/24 Status: Ordered Quantity: 90.0 Unit: tab(s) Repeat number: 4 Start: 02-07-2023 spironolactone 25 mg oral tablet Dose : 25 mg = 1 tab(s), Oral, qDay, # 60 tab(s), 5 Refill(s), [facility]: [facility] #[id number], 175.3, cm, 12/23/22 6:37:00 EDT, Height, kg, 12/23/22 6:38:00 EDT, Dosing Weight Start Date: 02/07/23 Status: Ordered Start: 11-24-2022 spironolactone 25 mg oral tablet Dose : 25 mg = 1 tab(s), Oral, qDay, # 60 tab(s), 0 Refill(s), [facility]: [facility] #[id number], 177, cm, 11/08/22 13:50:00 EDT, Height, kg, 11/08/22 13:50:00 EDT, Dosing Weight Start Date: 11/24/22 Status: Ordered Start: 11-04-2022 spironolactone 25 mg oral tablet Dose : 25 mg = 1 tab(s), Oral, BIDM, # 60 tab(s), 0 Refill(s), [facility][id number], 175.3, cm, 11/04/22 8:52:00 EDT, Height Start Date: 11/04/22 Status: Ordered Symbicort 80 mcg-4.5 mcg/inh Inhaler (9 sources) Start: 07-29-2024 End: 07-24-2025 take 1 dose by inhalation twice daily Symbicort 80 mcg-4.5 mcg/inh Inhaler Dose = 2 puff(s), Inhalation, BID, # 30.6 gram(s), 3 Refill(s), Pharmacy: [facility], 182, cm, 06/12/24 13:53:00 EST, Height, kg, 06/12/24 13:53:00 EST, Dosing Weight Start Date: 07/29/24 Stop Date: 07/24/25 Status: Ordered Quantity: 30.6 Unit: g Repeat number: 4 Start: 04-08-2024 End: 08-06-2024 take 1 dose by inhalation twice daily Symbicort 80 mcg-4.5 mcg/inh Inhaler Dose = 2 puff(s), Inhalation, BID, # 10.2 gram(s), 3 Refill(s), Pharmacy: [facility], 175, cm, 04/01/24 13:03:00 EST, Height, kg, 04/01/24 13:03:00 EST, Dosing Weight Start Date: 04/08/24 Stop Date: 08/06/24 Status: Ordered Quantity: 10.2 Unit: g Repeat number: 4 Start: 12-12-2023 End: 04-10-2024 take 1 dose by inhalation twice daily Symbicort 80 mcg-4.5 mcg/inh Inhaler Dose = 2 puff(s), Inhalation, BID, # 10.2 gram(s), 3 Refill(s), Pharmacy: [facility], 177.8, cm, 11/28/23 13:54:00 EDT, [...] qHS, # 90 tab(s), 3 Refill(s), Pharmacy: [facility]/pharmacy #[id number], 177.8, cm, 10/09/24 13:44:00 EDT, Height, kg, 10/09/24 13:44:00 EDT, Dosing Weight Start Date: 10/09/24 Status: Ordered Quantity: 90.0 Unit: tab(s) Repeat number: 4 Start: 09-19-2024 traZODone 100 mg oral tablet Dose : 100 mg = 1 tab(s), Oral, qHS, # 90 tab(s), 2 Refill(s), Pharmacy: [facility]/pharmacy #[id number], 175, cm, 09/05/24 16:01:00 EDT, Height, kg, 09/05/24 16:01:00 EDT, Dosing Weight Start Date: 09/19/24 Status: Ordered Quantity: 90.0 Unit: tab(s) Repeat number: 3 Start: 12-12-2023 traZODone 100 mg oral tablet Dose : 100 mg = 1 tab(s), Oral, qHS, # 90 tab(s), 3 Refill(s), Pharmacy: [facility], 177.8, cm, 11/28/23 13:54:00 EDT, Height, kg, 11/28/23 13:54:00 EDT, Dosing Weight Start Date: 12/12/23 Status: Ordered Quantity: 90.0 Unit: tab(s) Repeat number: 4 Start: 08-08-2023 traZODone 100 mg oral tablet Dose : 100 mg = 1 tab(s), Oral, qHS, # 90 tab(s), 3 Refill(s), [facility]acy: [facility] #[id number], 178.5, cm, 08/08/23 13:32:00 EDT, Height, kg, 08/08/23 13:32:00 EDT, Dosing Weight Start Date: 08/08/23 Status: Ordered Start: 12-13-2022 End: 04-12-2023 traZODone 100 mg oral tablet Dose : 100 mg = 1 tab(s), Oral, qHS, # 90 tab(s), 3 Refill(s), [facility]acy: [facility] #[id number], 175.3, cm, 12/23/22 6:37:00 EDT, Height, kg, 12/23/22 6:38:00 EDT, Dosing Weight Start Date: 01/31/23 Status: Ordered Start: 11-08-2022 End: 02-06-2023 traZODone 50 mg oral tablet Dose : 50 mg = 1 tab(s), Oral, qHS, # 30 tab(s), 2 Refill(s), [facility]: [facility] #[id number], 177, cm, 11/08/22 13:50:00 EDT, Height, kg, [...] 30 gram(s), 0 Refill(s), [facility]: [facility] #[id number], Cream, 175.3, cm, 12/13/22 14:43:00 EDT, Height, [...] 4 EA, 3 Refill(s), generic OZEMPIC, Pharmacy: [facility] #[id number], 178.5, cm, 08/08/23 13:32:00 EDT, Height, kg, [...] chew, # 180 tab(s), 0 Refill(s), Pharmacy: [facility]/pharmacy #[id number], Shortness of breath, 175, cm, 09/05/24 [...] chew, # 60 tab(s), 3 Refill(s), [facility] [id number], Shortness of breath, 175.3, cm, 03/22/23 13:31:00 EDT, Height, kg, 03/22/23 13:31:00 EDT, Dosing Weight Start Date: 03/22/23 Stop Date: 03/29/23 Status: Ordered Start: 12-23-2022 Toprol-XL 50 m g oral tablet, extended release Dose : 50 mg = 1 tab(s), Oral, BID, # 60 tab(s), 6 Refill(s), [facility]: [id number], 175.3, cm, 12/23/22 6:37:00 EDT, Height, kg, [...] spasm, # 21 tab(s), 3 Refill(s), Pharmacy: [facility], 182, cm, 06/12/24 13:53:00 EST, Height, kg, 06/12/24 13:53:00 EST, Dosing Weight Start Date: 08/26/24 Stop Date: 09/23/24 Status: Ordered Quantity: 21.0 Unit: tab(s) Repeat number: 4 Start: 03-04-2024 tiZANidine 2 m g oral tablet Dose : 2 mg = 1 tab(s), Oral, q8h, PRN as needed for muscle spasm, # 90 tab(s), 2 Refill(s), Pharmacy: [facility], 175, cm, 02/13/24 15:03:00 EDT, [...] sources) Long-term current use of anticoagulant; 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: [correction (current) use of anticoagulants] Episodic Other aftercare (1 source) roasterman (current) use of anticoagulants; 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: [correction (current) use of anticoagulants] Onset: 10-16-2024 Episodic [...] )on 10-28-2024 BUN/CRE 13.8 RATIO Normal 10-20 [facility] Comment on above: Order Comment: 210 Performed By: #### L 506.1001, L500.4100, L501.1400, L100.0100, L500.2500, L501.9520, L501.5200 #### [facility] [address] [place], [address] Calcium [Mass/Vol] 8.9 mg/dL Normal 7.6-11.0 [facility] Comment on above: Order Comment: 210 Performed By: #### L 506.1001, L500.4100, L501.1400, L100.0100, L500.2500, L501.9520, L501.5200 #### [facility] [address] [place], [address] Chloride [Moles/Vol] 98 mmol/L Normal 98-108 [facility] Comment on above: Order Comment: 210 Performed By: #### L 506.1001, L500.4100, L501.1400, L100.0100, L500.2500, L501.9520, L501.5200 #### [facility] [address] [place], [address] CO2 [Moles/Vol] 27.1 mmol/L Normal 21.0-32.0 [facility] Comment on above: Order Comment: 210 Performed By: #### L 506.1001, L500.4100, L501.1400, L100.0100, L500.2500, L501.9520, L501.5200 #### [facility] [address] [place], [address] Creatinine [Mass/Vol] 0.74 mg/dL Normal 0.70-1.20 [facility] Comment on above: Order Comment: 210 Performed By: #### L 506.1001, L500.4100, L501.1400, L100.0100, L500.2500, L501.9520, L501.5200 #### [facility] [address] [place], [address] GAP 10 Normal 5-15 [facility] Comment on above: Order Comment: 210 Performed By: #### L 506.1001, L500.4100, L501.1400, L100.0100, L500.2500, L501.9520, L501.5200 #### [facility] [address] [place], [address] GFR/1.73 sq M.predicted among non-blacks MDRD (S/P/Bld) [Vol rate/Area] 108 mL/min/{1.73_m2} Normal >60 [facility] Comment on above: Order Comment: 210 Result Comment: mL/m in/1.73m2 CKD-EPI Creatinine Equation (2020) Performed By: #### L 506.1001, L500.4100, L501.1400, L100.0100, L500.2500, L501.9520, L501.5200 #### [facility] [address] [place], [address] Glucose [Mass/Vol] 108 mg/dL High 70-99 [facility] Comment on above: Order Comment: 210 Performed By: #### L 506.1001, L500.4100, L501.1400, L100.0100, L500.2500, L501.9520, L501.5200 #### [facility] [address] [place], [address] Potassium [Moles/Vol] 4.1 mmol/L Normal 3.3-5.1 [facility] Comment on above: Order Comment: 210 Performed By: #### L 506.1001, L500.4100, L501.1400, L100.0100, L500.2500, L501.9520, L501.5200 #### [facility] [address] [place], [address] Sodium [Moles/Vol] 135 mmol/L Normal 133-145 [facility] Comment on above: Order Comment: 210 Performed By: #### L 506.1001, L500.4100, L501.1400, L100.0100, L500.2500, L501.9520, L501.5200 #### [facility] [address] [place], [address] Urea nitrogen [Mass/Vol] 10 mg/dL Normal 4-19 [facility] Comment on above: Order Comment: 210 Performed By: #### L 506.1001, L500.4100, L501.1400, L100.0100, L500.2500, L501.9520, L501.5200 #### [facility] [address] [place], [address] CBC W/Diff, Automatedon 06-0 2-2024 Absolute Lymph 1.07 X10 3/uL Normal 0.83-4.51 [facility] Comment on above: Order Comment: 210 Performed By: #### L 506.1001, L500.4100, L501.1400, L100.0100, L500.2500, L501.9520, L501.5200 #### [facility] [address] [place], [address] Absolute Neut 2.8 X10 3/uL Normal 2.0-7.7 [facility] Comment on above: Order Comment: 210 Performed By: #### L 506.1001, L500.4100, L501.1400, L100.0100, L500.2500, L501.9520, L501.5200 #### [facility] [address] [place], [address] Basophils/100 WBC (Bld) 0.7 % Normal 0-1 [facility] Comment on above: Order Comment: 210 Performed By: #### L 506.1001, L500.4100, L501.1400, L100.0100, L500.2500, L501.9520, L501.5200 #### [facility] [address] [place], [address] Eosinophils/100 WBC (Bld) 2.0 % Normal 0-5 [facility] Comment on above: Order Comment: 210 Performed By: #### L 506.1001, L500.4100, L501.1400, L100.0100, L500.2500, L501.9520, L501.5200 #### [facility] [address] [place], [address] Erythrocyte distribution width (RBC) [Ratio] 15.9 % High 11.6-14.6 [facility] Comment on above: Order Comment: 210 Performed By: #### L 506.1001, L500.4100, L501.1400, L100.0100, L500.2500, L501.9520, L501.5200 #### [facility] [address] [place], [address] Hematocrit (Bld) [Volume fraction] 41.2 % Normal 40-54 [facility] Comment on above: Order Comment: 210 Performed By: #### L 506.1001, L500.4100, L501.1400, L100.0100, L500.2500, L501.9520, L501.5200 #### [facility] [address] [place], [address] Hemoglobin (Bld) [Mass/Vol] 13.0 g/dL Normal 13.0-16.5 [facility] Comment on above: Order Comment: 210 Performed By: #### L 506.1001, L500.4100, L501.1400, L100.0100, L500.2500, L501.9520, L501.5200 #### [facility] [address] [place], [address] IG% 0.400 Normal 0.0-0.9 [facility] Comment on above: Order Comment: 210 Result Comment: IG% - Immature Granulocytes (promyelocytes, myelocytes and metamyelocytes) > 1% indicates that a LEFT SHIFT is Present. Performed By: #### L 506.1001, L500.4100, L501.1400, L100.0100, L500.2500, L501.9520, L501.5200 #### [facility] [address] [facility] [place], [address] Lymphocytes/100 WBC (Bld) 24.0 % Normal 19-41 [facility] Comment on above: Order Comment: 210 Performed By: #### L 506.1001, L500.4100, L501.1400, L100.0100, L500.2500, L501.9520, L501.5200 #### [facility] [address] [place], [address] MCH (RBC) [Entitic mass] 28.8 pg Normal 27.0-32.0 [facility] Comment on above: Order Comment: 210 Performed By: #### L 506.1001, L500.4100, L501.1400, L100.0100, L500.2500, L501.9520, L501.5200 #### [facility] [address] [place], [address] MCHC (RBC) [Mass/Vol] 31.6 g/dL Low 32-36 [facility] Comment on above: Order Comment: 210 Performed By: #### L 506.1001, L500.4100, L501.1400, L100.0100, L500.2500, L501.9520, L501.5200 #### [facility] [address] [place], [address] MCV (RBC) [Entitic vol] 91.2 fL Normal 80-94 [facility] Comment on above: Order Comment: 210 Performed By: #### L 506.1001, L500.4100, L501.1400, L100.0100, L500.2500, L501.9520, L501.5200 #### [facility] [address] [place], [address] Monocytes/100 WBC (Bld) 11.0 % High 0-10 [facility] Comment on above: Order Comment: 210 Performed By: #### L 506.1001, L500.4100, L501.1400, L100.0100, L500.2500, L501.9520, L501.5200 #### [facility] [address] [place], [address] Neutrophils/100 WBC (Bld) 61.9 % Normal 47-70 [facility] Comment on above: Order Comment: 210 Performed By: #### L 506.1001, L500.4100, L501.1400, L100.0100, L500.2500, L501.9520, L501.5200 #### [facility] [address] [place], [address] Nucleated RBC (Bld) [#/Vol] 0 10*3/uL Normal 0-5 [facility] Comment on above: Order Comment: 210 Performed By: #### L 506.1001, L500.4100, L501.1400, L100.0100, L500.2500, L501.9520, L501.5200 #### [facility] [address] [place], [address] Platelet mean volume (Bld) [Entitic vol] 9.6 fL Normal 6.2-12.0 [facility] Comment on above: Order Comment: 210 Performed By: #### L 506.1001, L500.4100, L501.1400, L100.0100, L500.2500, L501.9520, L501.5200 #### [facility] [address] [place], [address] Platelets (Bld) [#/Vol] 154 10*3/uL Normal 150-450 [facility] Comment on above: Order Comment: 210 Performed By: #### L 506.1001, L500.4100, L501.1400, L100.0100, L500.2500, L501.9520, L501.5200 #### [facility] [address] [place], [address] RBC (Bld) [#/Vol] 4.52 10*6/uL Low 4.6-6.2 [facility] Comment on above: Order Comment: 210 Performed By: #### L 506.1001, L500.4100, L501.1400, L100.0100, L500.2500, L501.9520, L501.5200 #### [facility] [address] [place], [address] RDW SD 53.1 fl High 35.1-43.9 [facility] Comment on above: Order Comment: 210 Performed By: #### L 506.1001, L500.4100, L501.1400, L100.0100, L500.2500, L501.9520, L501.5200 #### [facility] [address] [place], [address] WBC (Bld) [#/Vol] 4.5 10*3/uL Normal 4.4-11.0 [facility] Comment on above: Order Comment: 210 Performed By: #### L 506.1001, L500.4100, L501.1400, L100.0100, L500.2500, L501.9520, L501.5200 #### [facility] [address] [place], [address] Lipid Profileon 10-28-2024 CHOL:HDL 4.07 Normal [facility] Comment on above: Order Comment: 210 Performed By: #### L 506.1001, L500.4100, L501.1400, L100.0100, L500.2500, L501.9520, L501.5200 #### [facility] [address] [place], [address] Cholesterol [Mass/Vol] 95 mg/dL Normal <=200 [facility] Comment on above: Order Comment: 210 Result Comment: Chol esterol level, Desirable <200 mg/dL Borderline high cholesterol 200-239 mg/dL High cholesterol >=240 mg/dL Recommendations of the NCEP Adult Treatment Panel for the following risk-cutoff thresholds for the [place] population. Performed By: #### L 506.1001, L500.4100, L501.1400, L100.0100, L500.2500, L501.9520, L501.5200 #### [facility] [address] [place], [address] Cholesterol in HDL [Mass/Vol] 23 mg/dL Low [facility] Comment on above: Order Comment: 210 Result Comment: Fern onal Cholesterol Education Program (NCEP) guidelines: <40 mg/dL: Low HDL-cholesterol (major risk factor for CHD) >= 60 mg/dL: High HDL-cholesterol (negative risk factor for CHD) HDL-cholesterol is affected by a number of factors, e.g. smoking, exercise, hormones, sex and age. Performed By: #### L 506.1001, L500.4100, L501.1400, L100.0100, L500.2500, L501.9520, L501.5200 #### [facility] [address] [place], [address] Cholesterol in LDL [Mass/Vol] 46 mg/dL Normal [facility] Comment on above: Order Comment: 210 Result Comment: Bord wpwntt=817-532 mg/dL Higher Drcp=704 mg/dL or greater Performed By: #### L 506.1001, L500.4100, L501.1400, L100.0100, L500.2500, L501.9520, L501.5200 #### [facility] [address] [place], [address] Cholesterol in VLDL [Mass/Vol] 26 mg/dL Normal 5-40 [facility] Comment on above: Order Comment: 210 Performed By: #### L 506.1001, L500.4100, L501.1400, L100.0100, L500.2500, L501.9520, L501.5200 #### [facility] [address] [place], [address] Triglyceride [Mass/Vol] 129 mg/dL Normal [facility] Comment on above: Order Comment: 210 Result Comment: The drugs N-Acetylcysteine and Metamizole may falsely depress this assay. Normal range: <150 mg/dL Borderline High: 150-199 mg/dL High: 200-499 mg/dL Very High: >500 mg/dL Performed By: #### L 506.1001, L500.4100, L501.1400, L100.0100, L500.2500, L501.9520, L501.5200 #### [facility] [address] [place], [address] Magnesiumon 10-28-2024 Magnesium [Mass/Vol] 2.2 mg/dL Normal 1.5-2.2 [facility] Comment on above: Order Comment: 210 Performed By: #### L 506.1001, L500.4100, L501.1400, L100.0100, L500.2500, L501.9520, L501.5200 #### [facility] [address] [place], [address] Thyroid Stim Hormone (TSH)on 10-28-2024 TSH 3.370 uIU/mL Normal 0.300-4.200 [facility] Comment on above: Order Comment: 210 Performed By: #### L 506.1001, L500.4100, L501.1400, L100.0100, L500.2500, L501.9520, L501.5200 #### [facility] [address] [place], [address] Uric Acidon 10-28-2024 URIC 5.8 mg/dL Normal 3.5-7.2 [facility] Comment on above: Order Comment: 210 Result Comment: The drugs N-Acetylcysteine and Metamizole may falsely depress this assay. Performed By: #### L 506.1001, L500.4100, L501.1400, L100.0100, L500.2500, L501.9520, L501.5200 #### [facility] [address] [place], [address] Vitamin D,25 Hydroxyon 10-28 Vitamin D 25-OH < 6.0 Low 30-100 [facility] Comment on above: Order Comment: 210 Result Comment: Colleen min D Status Deficiency: <20 ng/mL (50nmol/L) Insufficiency: 20-30 ng/mL (50-75 nmol/L) Sufficiency: 30-100 ng/mL (75-250 nmol/L) Toxicity: >100 ng/mL (>250 nmol/L) Performed By: #### L 506.1001, L500.4100, L501.1400, L100.0100, L500.2500, L501.9520, L501.5200 #### [facility] [address] [place], [address] CBC-Complete Blood Cnt No Di ffon 10-24-2024 Erythrocyte distribution width (RBC) [Ratio] 15.6 % High 11.6-14.6 [facility] Comment on above: Performed By: #### L 100.0500, L500.4050 #### [facility] [address] [place], [address] Hematocrit (Bld) [Volume fraction] 40.1 % Normal 40-54 [facility] Comment on above: Performed By: #### L 100.0500, L500.4050 #### [facility] [address] [place], [address] Hemoglobin (Bld) [Mass/Vol] 12.7 g/dL Low 13.0-16.5 [facility] Comment on above: Performed By: #### L 100.0500, L500.4050 #### [facility] [address] [place], [address] MCH (RBC) [Entitic mass] 28.7 pg Normal 27.0-32.0 [facility] Comment on above: Performed By: #### L 100.0500, L500.4050 #### [facility] [address] [place], [address] MCHC (RBC) [Mass/Vol] 31.7 g/dL Low 32-36 [facility] Comment on above: Performed By: #### L 100.0500, L500.4050 #### [facility] [address] [place], [address] MCV (RBC) [Entitic vol] 90.7 fL Normal 80-94 [facility] Comment on above: Performed By: #### L 100.0500, L500.4050 #### [facility] [address] [place], [address] Platelet mean volume (Bld) [Entitic vol] 9.3 fL Normal 6.2-12.0 [facility] Comment on above: Performed By: #### L 100.0500, L500.4050 #### [facility] [address] [place], [address] Platelets (Bld) [#/Vol] 155 10*3/uL Normal 150-450 [facility] Comment on above: Performed By: #### L 100.0500, L500.4050 #### [facility] [address] [place], [address] RBC (Bld) [#/Vol] 4.42 10*6/uL Low 4.6-6.2 [facility] Comment on above: Performed By: #### L 100.0500, L500.4050 #### [facility] [address] [place], [address] RDW SD 51.8 fl High 35.1-43.9 [facility] Comment on above: Performed By: #### L 100.0500, L500.4050 #### [facility] [address] [place], [address] WBC (Bld) [#/Vol] 4.6 10*3/uL Normal 4.4-11.0 [facility] Comment on above: Performed By: #### L 100.0500, L500.4050 #### [facility] [address] [place], [address] Comprehensive Metabolic Prof [facility] 10-24-2024 Albumin [Mass/Vol] 3.4 g/dL Low 3.5-5.0 [facility] Comment on above: Performed By: #### L 100.0500, L500.4050 #### [facility] [address] [place], [address] Albumin/Globulin [Mass ratio] 1.0 {ratio} Normal 0.9-2.4 [facility] Comment on above: Performed By: #### L 100.0500, L500.4050 #### [facility] [address] [place], [address] ALK PHOS 76 U/L Normal 40-129 [facility] Comment on above: Performed By: #### L 100.0500, L500.4050 #### [facility] [address] [place], [address] ALT [Catalytic activity/Vol] 6 U/L Normal <=46 [facility] Comment on above: Performed By: #### L 100.0500, L500.4050 #### [facility] [address] [place], [address] AST [Catalytic activity/Vol] 18 U/L Normal <=37 [facility] Comment on above: Performed By: #### L 100.0500, L500.4050 #### [facility] [address] [place], [address] Bilirubin [Mass/Vol] 0.31 mg/dL Normal 0.00-1.30 [facility] Comment on above: Performed By: #### L 100.0500, L500.4050 #### [facility] [address] [place], [address] BUN/CRE 14.6 RATIO Normal 10-20 [facility] Comment on above: Performed By: #### L 100.0500, L500.4050 #### [facility] [address] [place], [address] Calcium [Mass/Vol] 9.0 mg/dL Normal 7.6-11.0 [facility] Comment on above: Performed By: #### L 100.0500, L500.4050 #### [facility] [address] [place], [address] Chloride [Moles/Vol] 99 mmol/L Normal 98-108 [facility] Comment on above: Performed By: #### L 100.0500, L500.4050 #### [facility] [address] [place], [address] CO2 [Moles/Vol] 29.2 mmol/L Normal 21.0-32.0 [facility] Comment on above: Performed By: #### L 100.0500, L500.4050 #### [facility] [address] [place], [address] Creatinine [Mass/Vol] 0.65 mg/dL Low 0.70-1.20 [facility] Comment on above: Performed By: #### L 100.0500, L500.4050 #### [facility] [address] [place], [address] GAP 9 Normal 5-15 [facility] Comment on above: Performed By: #### L 100.0500, L500.4050 #### [facility] [address] [place], [address] GFR/1.73 sq M.predicted among non-blacks MDRD (S/P/Bld) [Vol rate/Area] 113 mL/min/{1.73_m2} Normal >60 [facility] Comment on above: Result Comment: mL/m in/1.73m2 CKD-EPI Creatinine Equation (2020) Performed By: #### L 100.0500, L500.4050 #### [facility] [address] [place], [address] Globulin (S) [Mass/Vol] 3.2 g/dL Normal 2.2-4.2 [facility] Comment on above: Performed By: #### L 100.0500, L500.4050 #### [facility] [address] [place], [address] Glucose [Mass/Vol] 113 mg/dL High 70-99 [facility] Comment on above: Performed By: #### L 100.0500, L500.4050 #### [facility] [address] [place], [address] Potassium [Moles/Vol] 3.8 mmol/L Normal 3.3-5.1 [facility] Comment on above: Performed By: #### L 100.0500, L500.4050 #### [facility] [address] [place], [address] Sodium [Moles/Vol] 137 mmol/L Normal 133-145 [facility] Comment on above: Performed By: #### L 100.0500, L500.4050 #### [facility] [address] [place], [address] T PROT 6.6 g/dL Normal 5.9-8.4 [facility] Comment on above: Performed By: #### L 100.0500, L500.4050 #### [facility] [address] [place], [address] Urea nitrogen [Mass/Vol] 10 mg/dL Normal 4-19 [facility] Comment on above: Performed By: #### L 100.0500, L500.4050 #### [facility] [address] [place], [address] LABORATORYOrdered By: Samanta Morin on 10-23-2024 Blood Glucose Testing Reason Routine (10/23/24 8:27 PM) [facility] Glucose [Mass/Vol] 168 mg/dL High 70 - 110 mg/dL [facility] LABORATORYOrdered By: Sarah Carrillo on 10-23-2024 Blood Glucose Testing Reason Routine (10/23/24 5:31 PM) [facility] Glucose [Mass/Vol] 146 mg/dL High 70 - 110 mg/dL [facility] LABORATORYOrdered By: Gianna Mendez on 10-23-2024 Blood Glucose Testing Reason Routine (10/23/24 12:15 PM) [facility] Glucose [Mass/Vol] 154 mg/dL High 70 - 110 mg/dL [facility] Comment on above: Result Comment: noti fied nurse Bel RN .Auto Diffon 10-20-2024 Basophil, Absolute 0.0 10 3/mcL Normal 0.0-0.3 [facility] Comment on above: Performed By: #### M G, GFR, ANEU, ADIFF, CBC, CMP, A1C, LIPID #### [address] [address] Basophils/100 WBC (Bld) 0.6 % Normal 0.0-2.5 [facility] Comment on above: Performed By: #### M G, GFR, ANEU, ADIFF, CBC, CMP, A1C, LIPID #### [address] [address] Eosinophil, Absolute 0.1 10 3/mcL Normal 0.0-0.7 [facility] Comment on above: Performed By: #### M G, GFR, ANEU, ADIFF, CBC, CMP, A1C, LIPID #### [address] [address] Eosinophils/100 WBC (Bld) 1.5 % Normal 0.0-6.0 [facility] Comment on above: Performed By: #### M G, GFR, ANEU, ADIFF, CBC, CMP, A1C, LIPID #### [address] [address] Lymphocyte, Absolute 1.0 10 3/mcL Normal 0.9-4.3 [facility] Comment on above: Performed By: #### M G, GFR, ANEU, ADIFF, CBC, CMP, A1C, LIPID #### [address] [address] Lymphocytes/100 WBC (Bld) 21.2 % Normal 20.0-40.0 [facility] Comment on above: Performed By: #### M G, GFR, ANEU, ADIFF, CBC, CMP, A1C, LIPID #### [address] [address] Monocyte, Absolute 0.6 10 3/mcL Normal 0.1-1.4 [facility] Comment on above: Performed By: #### M G, GFR, ANEU, ADIFF, CBC, CMP, A1C, LIPID #### [address] [address] Monocytes/100 WBC (Bld) 11.6 % Normal 2.0-13.0 [facility] Comment on above: Performed By: #### M G, GFR, ANEU, ADIFF, CBC, CMP, A1C, LIPID #### [facility] [address] [place] [id number] Neutrophils/100 WBC (Bld) 65.1 % Normal 50.0-75.0 [facility] Comment on above: Performed By: #### M G, GFR, ANEU, ADIFF, CBC, CMP, A1C, LIPID #### [address] [address] .GFRon 10-20-2024 Estimated Glomerular Filtration Rate 108 ml/min/1.73sqm Normal [facility] Comment on above: Result Comment: Stages [...] ANEU, ADIFF, CBC, CMP, A1C, LIPID #### [address] [address] .NEUABSon 10-20-2024 Neutrophil, Absolute 3.2 10 3/mcL Normal 2.3-8.1 [facility] Comment on above: Performed By: #### M G, GFR, ANEU, ADIFF, CBC, CMP, A1C, LIPID #### [place] [address] [place] [id number] BMPon 10-20-2024 BUN/Creatinine Ratio 10.8 ratio Normal 10.0-22.0 [facility] Comment on above: Performed By: #### M G, GFR, ANEU, ADIFF, CBC, CMP, A1C, LIPID #### [address] [address] Calcium [Mass/Vol] 8.7 mg/dL Normal 8.7-10.4 [facility] Comment on above: Performed By: #### M G, GFR, ANEU, ADIFF, CBC, CMP, A1C, LIPID #### [address] [address] Chloride [Moles/Vol] 97 mmol/L Low 98-110 [facility] Comment on above: Performed By: #### M G, GFR, ANEU, ADIFF, CBC, CMP, A1C, LIPID #### [address] [address] CO2 [Moles/Vol] 37 mmol/L High 22-32 [facility] Comment on above: Performed By: #### M G, GFR, ANEU, ADIFF, CBC, CMP, A1C, LIPID #### [address] [address] Creatinine [Mass/Vol] 0.74 mg/dL Normal 0.60-1.40 [facility] Comment on above: Result Comment: Test ing performed on [email or web address] analyzer using enzymatic creatinine methodology. Performed By: #### M G, GFR, ANEU, ADIFF, CBC, CMP, A1C, LIPID #### [address] [address] Electrolyte Balance 4.0 mEq/L Normal 4.0-15.0 [facility] Comment on above: Performed By: #### M G, GFR, ANEU, ADIFF, CBC, CMP, A1C, LIPID #### [address] [address] Glucose [Mass/Vol] 116 mg/dL High 70-110 [facility] Comment on above: Performed By: #### M G, GFR, ANEU, ADIFF, CBC, CMP, A1C, LIPID #### [address] [address] Potassium [Moles/Vol] 3.5 mmol/L Normal 3.5-5.0 [facility] Comment on above: Performed By: #### M G, GFR, ANEU, ADIFF, CBC, CMP, A1C, LIPID #### [place] [address] Sodium [Moles/Vol] 138 mmol/L Normal 136-145 [facility] Comment on above: Performed By: #### M G, GFR, ANEU, ADIFF, CBC, CMP, A1C, LIPID #### [place] [id number] Urea nitrogen [Mass/Vol] 8.0 mg/dL Normal 8.0-22.0 [facility] Comment on above: Performed By: #### M G, GFR, ANEU, ADIFF, CBC, CMP, A1C, LIPID #### [place] [id number] CBCon 10-20-2024 Erythrocyte distribution width (RBC) [Ratio] 16.8 % High 11.5-15.5 [facility] Comment on above: Performed By: #### M G, GFR, ANEU, ADIFF, CBC, CMP, A1C, LIPID #### [place] [address] Hematocrit (Bld) [Volume fraction] 41.3 % Normal 40.0-52.0 [facility] Comment on above: Performed By: #### M G, GFR, ANEU, ADIFF, CBC, CMP, A1C, LIPID #### [place] [address] Hgb 13.4 G/dL Normal 13.0-17.5 [facility] Comment on above: Performed By: #### M G, GFR, ANEU, ADIFF, CBC, CMP, A1C, LIPID #### [place] [address] MCH (RBC) [Entitic mass] 28.7 pg Normal 27.0-33.0 [facility] Comment on above: Performed By: #### M G, GFR, ANEU, ADIFF, CBC, CMP, A1C, LIPID #### [place] [address] MCHC 32.4 G/dL Normal 32.0-36.0 [facility] Comment on above: Performed By: #### M G, GFR, ANEU, ADIFF, CBC, CMP, A1C, LIPID #### [place] [address] MCV (RBC) [Entitic vol] 88.5 fL Normal 81.0-100.0 [facility] Comment on above: Performed By: #### M G, GFR, ANEU, ADIFF, CBC, CMP, A1C, LIPID #### [place] [address] Platelet 175 10 3/mcL Normal 150-450 [facility] Comment on above: Performed By: #### M G, GFR, ANEU, ADIFF, CBC, CMP, A1C, LIPID #### [place] [address] Platelet mean volume (Bld) [Entitic vol] 7.3 fL Normal 6.4-10.5 [facility] Comment on above: Performed By: #### M G, GFR, ANEU, ADIFF, CBC, CMP, A1C, LIPID #### [place] [address] RBC 4.67 10 6/mcL Normal 4.50-6.00 [facility] Comment on above: Performed By: #### M G, GFR, ANEU, ADIFF, CBC, CMP, A1C, LIPID #### [place] [address] WBC 4.8 10 3/mcL Normal 4.5-10.8 [facility] Comment on above: Performed By: #### M G, GFR, ANEU, ADIFF, CBC, CMP, A1C, LIPID #### [place] [address] LABORATORYOrdered By: SYSTEM SYSTEM on 10-20-2024 Basophils [...] above: Interpretive Data: T esting performed on [email or web address] analyzer using enzymatic creatinine methodology. Electrolyte Balance [...] Basophil, Absolute 0.0 10 3/mcL Normal 0.0-0.3 [facility] Comment on above: Performed By: #### M G, GFR, ANEU, ADIFF, CBC, CMP, A1C, LIPID #### [facility] [address] [place] [address] Basophils/100 WBC (Bld) 0.7 % Normal 0.0-2.5 [facility] Comment on above: Performed By: #### M G, GFR, ANEU, ADIFF, CBC, CMP, A1C, LIPID #### [address] [address] Eosinophil, Absolute 0.1 10 3/mcL Normal 0.0-0.7 [facility] Comment on above: Performed By: #### M G, GFR, ANEU, ADIFF, CBC, CMP, A1C, LIPID #### [address] [address] Eosinophils/100 WBC (Bld) 1.9 % Normal 0.0-6.0 [facility] Comment on above: Performed By: #### M G, GFR, ANEU, ADIFF, CBC, CMP, A1C, LIPID #### [address] [address] Lymphocyte, Absolute 1.0 10 3/mcL Normal 0.9-4.3 [facility] Comment on above: Performed By: #### M G, GFR, ANEU, ADIFF, CBC, CMP, A1C, LIPID #### [address] [address] Lymphocytes/100 WBC (Bld) 18.3 % Low 20.0-40.0 [facility] Comment on above: Performed By: #### M G, GFR, ANEU, ADIFF, CBC, CMP, A1C, LIPID #### [address] [address] Monocyte, Absolute 0.5 10 3/mcL Normal 0.1-1.4 [facility] Comment on above: Performed By: #### M G, GFR, ANEU, ADIFF, CBC, CMP, A1C, LIPID #### [address] [address] Monocytes/100 WBC (Bld) 9.1 % Normal 2.0-13.0 [facility] Comment on above: Performed By: #### M G, GFR, ANEU, ADIFF, CBC, CMP, A1C, LIPID #### [address] [address] Neutrophils/100 WBC (Bld) 70.0 % Normal 50.0-75.0 [facility] Comment on above: Performed By: #### M G, GFR, ANEU, ADIFF, CBC, CMP, A1C, LIPID #### [address] [address] .GFRon 10-19-2024 Estimated Glomerular Filtration Rate 109 ml/min/1.73sqm Normal [facility] Comment on above: Result Comment: Stages [...] ANEU, ADIFF, CBC, CMP, A1C, LIPID #### [address] [address] .NEUABSon 10-19-2024 Neutrophil, Absolute 3.8 10 3/mcL Normal 2.3-8.1 [facility] Comment on above: Performed By: #### M G, GFR, ANEU, ADIFF, CBC, CMP, A1C, LIPID #### [address] [address] BMPon 10-19-2024 BUN/Creatinine Ratio 11.1 ratio Normal 10.0-22.0 [facility] Comment on above: Performed By: #### M G, GFR, ANEU, ADIFF, CBC, CMP, A1C, LIPID #### [address] [address] Calcium [Mass/Vol] 8.7 mg/dL Normal 8.7-10.4 [facility] Comment on above: Performed By: #### M G, GFR, ANEU, ADIFF, CBC, CMP, A1C, LIPID #### [address] [address] Chloride [Moles/Vol] 100 mmol/L Normal 98-110 [facility] Comment on above: Performed By: #### M G, GFR, ANEU, ADIFF, CBC, CMP, A1C, LIPID #### [address] [address] CO2 [Moles/Vol] 33 mmol/L High 22-32 [facility] Comment on above: Performed By: #### M G, GFR, ANEU, ADIFF, CBC, CMP, A1C, LIPID #### [address] [address] Creatinine [Mass/Vol] 0.72 mg/dL Normal 0.60-1.40 [facility] Comment on above: Result Comment: Test ing performed on [email or web address] analyzer using enzymatic creatinine methodology. Performed By: #### M G, GFR, ANEU, ADIFF, CBC, CMP, A1C, LIPID #### [address] [address] Electrolyte Balance 4.0 mEq/L Normal 4.0-15.0 [facility] Comment on above: Performed By: #### M G, GFR, ANEU, ADIFF, CBC, CMP, A1C, LIPID #### [address] [address] Glucose [Mass/Vol] 181 mg/dL High 70-110 [facility] Comment on above: Performed By: #### M G, GFR, ANEU, ADIFF, CBC, CMP, A1C, LIPID #### [address] [address] Potassium [Moles/Vol] 3.5 mmol/L Normal 3.5-5.0 [facility] Comment on above: Performed By: #### M G, GFR, ANEU, ADIFF, CBC, CMP, A1C, LIPID #### [address] [address] Sodium [Moles/Vol] 137 mmol/L Normal 136-145 [facility] Comment on above: Performed By: #### M G, GFR, ANEU, ADIFF, CBC, CMP, A1C, LIPID #### [address] [address] Urea nitrogen [Mass/Vol] 8.0 mg/dL Normal 8.0-22.0 [facility] Comment on above: Performed By: #### M G, GFR, ANEU, ADIFF, CBC, CMP, A1C, LIPID #### [place] [id number] CBCon 10-19-2024 Erythrocyte distribution width (RBC) [Ratio] 17.3 % High 11.5-15.5 [facility] Comment on above: Performed By: #### M G, GFR, ANEU, ADIFF, CBC, CMP, A1C, LIPID #### [place] [address] Hematocrit (Bld) [Volume fraction] 40.5 % Normal 40.0-52.0 [facility] Comment on above: Performed By: #### M G, GFR, ANEU, ADIFF, CBC, CMP, A1C, LIPID #### [place] [address] Hgb 13.0 G/dL Normal 13.0-17.5 [facility] Comment on above: Performed By: #### M G, GFR, ANEU, ADIFF, CBC, CMP, A1C, LIPID #### [place] [address] MCH (RBC) [Entitic mass] 28.6 pg Normal 27.0-33.0 [facility] Comment on above: Performed By: #### M G, GFR, ANEU, ADIFF, CBC, CMP, A1C, LIPID #### [place] [address] MCHC 32.1 G/dL Normal 32.0-36.0 [facility] Comment on above: Performed By: #### M G, GFR, ANEU, ADIFF, CBC, CMP, A1C, LIPID #### [place] [address] MCV (RBC) [Entitic vol] 89.2 fL Normal 81.0-100.0 [facility] Comment on above: Performed By: #### M G, GFR, ANEU, ADIFF, CBC, CMP, A1C, LIPID #### [place] [address] Platelet 171 10 3/mcL Normal 150-450 [facility] Comment on above: Performed By: #### M G, GFR, ANEU, ADIFF, CBC, CMP, A1C, LIPID #### [place] [address] [place] [address] Platelet mean volume (Bld) [Entitic vol] 7.6 fL Normal 6.4-10.5 [facility] Comment on above: Performed By: #### M G, GFR, ANEU, ADIFF, CBC, CMP, A1C, LIPID #### [place] [address] [place] [address] RBC 4.54 10 6/mcL Normal 4.50-6.00 [facility] Comment on above: Performed By: #### M G, GFR, ANEU, ADIFF, CBC, CMP, A1C, LIPID #### [place] [address] WBC 5.4 10 3/mcL Normal 4.5-10.8 [facility] Comment on above: Performed By: #### M G, GFR, ANEU, ADIFF, CBC, CMP, A1C, LIPID #### [place] [address] LABORATORYOrdered By: SYSTEM SYSTEM on 10-19-2024 Basophils [...] above: Interpretive Data: T esting performed on [email or web address] analyzer using enzymatic creatinine methodology. Electrolyte Balance [...] Basophil, Absolute 0.0 10 3/mcL Normal 0.0-0.3 [facility] Comment on above: Performed By: #### M G, GFR, ANEU, ADIFF, CBC, CMP, A1C, LIPID #### [address] [address] Basophils/100 WBC (Bld) 0.6 % Normal 0.0-2.5 [facility] Comment on above: Performed By: #### M G, GFR, ANEU, ADIFF, CBC, CMP, A1C, LIPID #### [address] [address] Eosinophil, Absolute 0.1 10 3/mcL Normal 0.0-0.7 [facility] Comment on above: Performed By: #### M G, GFR, ANEU, ADIFF, CBC, CMP, A1C, LIPID #### [address] [address] Eosinophils/100 WBC (Bld) 1.7 % Normal 0.0-6.0 [facility] Comment on above: Performed By: #### M G, GFR, ANEU, ADIFF, CBC, CMP, A1C, LIPID #### [address] [address] Lymphocyte, Absolute 1.2 10 3/mcL Normal 0.9-4.3 [facility] Comment on above: Performed By: #### M G, GFR, ANEU, ADIFF, CBC, CMP, A1C, LIPID #### [address] [address] Lymphocytes/100 WBC (Bld) 19.0 % Low 20.0-40.0 [facility] Comment on above: Performed By: #### M G, GFR, ANEU, ADIFF, CBC, CMP, A1C, LIPID #### [address] [address] Monocyte, Absolute 0.9 10 3/mcL Normal 0.1-1.4 [facility] Comment on above: Performed By: #### M G, GFR, ANEU, ADIFF, CBC, CMP, A1C, LIPID #### [address] [address] Monocytes/100 WBC (Bld) 14.1 % High 2.0-13.0 [facility] Comment on above: Performed By: #### M G, GFR, ANEU, ADIFF, CBC, CMP, A1C, LIPID #### [address] [address] Neutrophils/100 WBC (Bld) 64.6 % Normal 50.0-75.0 [facility] Comment on above: Performed By: #### M G, GFR, ANEU, ADIFF, CBC, CMP, A1C, LIPID #### [address] [address] Basophil, Absolute 0.0 10 3/mcL Normal 0.0-0.3 [facility] Comment on above: Performed By: #### M G, GFR, ANEU, ADIFF, CBC, CMP, A1C, LIPID #### [address] [address] Basophils/100 WBC (Bld) 0.4 % Normal 0.0-2.5 [facility] Comment on above: Performed By: #### M G, GFR, ANEU, ADIFF, CBC, CMP, A1C, LIPID #### [address] [address] Eosinophil, Absolute 0.1 10 3/mcL Normal 0.0-0.7 [facility] Comment on above: Performed By: #### M G, GFR, ANEU, ADIFF, CBC, CMP, A1C, LIPID #### [address] [address] Eosinophils/100 WBC (Bld) 1.2 % Normal 0.0-6.0 [facility] Comment on above: Performed By: #### M G, GFR, ANEU, ADIFF, CBC, CMP, A1C, LIPID #### [address] [address] Lymphocyte, Absolute 0.7 10 3/mcL Low 0.9-4.3 [facility] Comment on above: Performed By: #### M G, GFR, ANEU, ADIFF, CBC, CMP, A1C, LIPID #### [address] [address] Lymphocytes/100 WBC (Bld) 16.1 % Low 20.0-40.0 [facility] Comment on above: Performed By: #### M G, GFR, ANEU, ADIFF, CBC, CMP, A1C, LIPID #### [address] [address] Monocyte, Absolute 0.5 10 3/mcL Normal 0.1-1.4 [facility] Comment on above: Performed By: #### M G, GFR, ANEU, ADIFF, CBC, CMP, A1C, LIPID #### [address] [address] Monocytes/100 WBC (Bld) 11.8 % Normal 2.0-13.0 [facility] Comment on above: Performed By: #### M G, GFR, ANEU, ADIFF, CBC, CMP, A1C, LIPID #### [address] [address] Neutrophils/100 WBC (Bld) 70.5 % Normal 50.0-75.0 [facility] Comment on above: Performed By: #### M G, GFR, ANEU, ADIFF, CBC, CMP, A1C, LIPID #### [address] [address] .GFRon 10-18-2024 Estimated Glomerular Filtration Rate 112 ml/min/1.73sqm [facility] Comment on above: Result Comment: Stages [...] ANEU, ADIFF, CBC, CMP, A1C, LIPID #### [place] [address] Estimated Glomerular Filtration Rate 114 ml/min/1.73sqm Normal [facility] Comment on above: Result Comment: Stages [...] ANEU, ADIFF, CBC, CMP, A1C, LIPID #### [place] [address] .NEUABSon 10-18-2024 Neutrophil, Absolute 3.9 10 3/mcL Normal 2.3-8.1 [facility] Comment on above: Performed By: #### M G, GFR, ANEU, ADIFF, CBC, CMP, A1C, LIPID #### [address] [address] Neutrophil, Absolute 3.3 10 3/mcL Normal 2.3-8.1 [facility] Comment on above: Performed By: #### M G, GFR, ANEU, ADIFF, CBC, CMP, A1C, LIPID #### [address] [address] BMPon 10-18-2024 BUN/Creatinine Ratio 9.0 ratio Low 10.0-22.0 [facility] Comment on above: Performed By: #### M G, GFR, ANEU, ADIFF, CBC, CMP, A1C, LIPID #### [place] [id number] Calcium [Mass/Vol] 8.7 mg/dL Normal 8.7-10.4 [facility] Comment on above: Performed By: #### M G, GFR, ANEU, ADIFF, CBC, CMP, A1C, LIPID #### [place] [id number] Chloride [Moles/Vol] 99 mmol/L Normal 98-110 [facility] Comment on above: Performed By: #### M G, GFR, ANEU, ADIFF, CBC, CMP, A1C, LIPID #### [address] [address] CO2 [Moles/Vol] 33 mmol/L High 22-32 [facility] Comment on above: Performed By: #### M G, GFR, ANEU, ADIFF, CBC, CMP, A1C, LIPID #### [place] [id number] Creatinine [Mass/Vol] 0.67 mg/dL Normal 0.60-1.40 [facility] Comment on above: Result Comment: Test ing performed on [email or web address] analyzer using enzymatic creatinine methodology. Performed By: #### M G, GFR, ANEU, ADIFF, CBC, CMP, A1C, LIPID #### [address] [address] Electrolyte Balance 5.0 mEq/L Normal 4.0-15.0 [facility] Comment on above: Performed By: #### M G, GFR, ANEU, ADIFF, CBC, CMP, A1C, LIPID #### [address] [address] Glucose [Mass/Vol] 115 mg/dL High 70-110 [facility] Comment on above: Performed By: #### M G, GFR, ANEU, ADIFF, CBC, CMP, A1C, LIPID #### [address] [address] Potassium [Moles/Vol] 3.4 mmol/L Low 3.5-5.0 [facility] Comment on above: Performed By: #### M G, GFR, ANEU, ADIFF, CBC, CMP, A1C, LIPID #### [address] [address] Sodium [Moles/Vol] 137 mmol/L Normal 136-145 [facility] Comment on above: Performed By: #### M G, GFR, ANEU, ADIFF, CBC, CMP, A1C, LIPID #### [address] [address] Urea nitrogen [Mass/Vol] 6.0 mg/dL Low 8.0-22.0 [facility] Comment on above: Performed By: #### M G, GFR, ANEU, ADIFF, CBC, CMP, A1C, LIPID #### [place] [id number] BUN/Creatinine Ratio Unable to Calculate Normal 10.0-2 2.0 [facility] Comment on above: Order Comment: Pleas e draw daily labs at 3 AM for 3 days Result Comment: Unab le to calculate this test result accurately. Results used to calculate this test are outside the reportable range. Performed By: #### M G, GFR, ANEU, ADIFF, CBC, CMP, A1C, LIPID #### [address] [address] Urea nitrogen [Mass/Vol] mg/dL Low 8.0-22.0 [facility] Comment on above: Order Comment: Pleas e draw daily labs at 3 AM for 3 days Performed By: #### M G, GFR, ANEU, ADIFF, CBC, CMP, A1C, LIPID #### [address] [address] Calcium [Mass/Vol] 9.2 mg/dL Normal 8.7-10.4 [facility] Comment on above: Order Comment: Pleas e draw daily labs at 3 AM for 3 days Performed By: #### M G, GFR, ANEU, ADIFF, CBC, CMP, A1C, LIPID #### [address] [address] Chloride [Moles/Vol] 101 mmol/L Normal 98-110 [facility] Comment on above: Order Comment: Pleas e draw daily labs at 3 AM for 3 days Performed By: #### M G, GFR, ANEU, ADIFF, CBC, CMP, A1C, LIPID #### [address] [address] CO2 [Moles/Vol] 33 mmol/L High 22-32 [facility] Comment on above: Order Comment: Pleas e draw daily labs at 3 AM for 3 days Performed By: #### M G, GFR, ANEU, ADIFF, CBC, CMP, A1C, LIPID #### [address] [address] Creatinine [Mass/Vol] 0.63 mg/dL Normal 0.60-1.40 [facility] Comment on above: Order Comment: Pleas e draw daily labs at 3 AM for 3 days Result Comment: Test ing performed on [email or web address] analyzer using enzymatic creatinine methodology. Performed By: #### M G, GFR, ANEU, ADIFF, CBC, CMP, A1C, LIPID #### [address] [address] Electrolyte Balance 5.0 mEq/L Normal 4.0-15.0 [facility] Comment on above: Order Comment: Pleas e draw daily labs at 3 AM for 3 days Performed By: #### M G, GFR, ANEU, ADIFF, CBC, CMP, A1C, LIPID #### [address] [address] Glucose [Mass/Vol] 110 mg/dL Normal 70-110 [facility] Comment on above: Order Comment: Pleas e draw daily labs at 3 AM for 3 days Performed By: #### M G, GFR, ANEU, ADIFF, CBC, CMP, A1C, LIPID #### [address] [address] Potassium [Moles/Vol] 3.6 mmol/L Normal 3.5-5.0 [facility] Comment on above: Order Comment: Pleas e draw daily labs at 3 AM for 3 days Performed By: #### M G, GFR, ANEU, ADIFF, CBC, CMP, A1C, LIPID #### [address] [address] Sodium [Moles/Vol] 139 mmol/L Normal 136-145 [facility] Comment on above: Order Comment: Pleas e draw daily labs at 3 AM for 3 days Performed By: #### M G, GFR, ANEU, ADIFF, CBC, CMP, A1C, LIPID #### [address] [address] CBCon 10-18-2024 Erythrocyte distribution width (RBC) [Ratio] 17.3 % High 11.5-15.5 [facility] Comment on above: Performed By: #### M G, GFR, ANEU, ADIFF, CBC, CMP, A1C, LIPID #### [place] [id number] Hematocrit (Bld) [Volume fraction] 41.4 % Normal 40.0-52.0 [facility] Comment on above: Performed By: #### M G, GFR, ANEU, ADIFF, CBC, CMP, A1C, LIPID #### [address] [address] Hgb 13.5 G/dL Normal 13.0-17.5 [facility] Comment on above: Performed By: #### M G, GFR, ANEU, ADIFF, CBC, CMP, A1C, LIPID #### [address] [address] MCH (RBC) [Entitic mass] 28.9 pg Normal 27.0-33.0 [facility] Comment on above: Performed By: #### M G, GFR, ANEU, ADIFF, CBC, CMP, A1C, LIPID #### [address] [address] MCHC 32.7 G/dL Normal 32.0-36.0 [facility] Comment on above: Performed By: #### M G, GFR, ANEU, ADIFF, CBC, CMP, A1C, LIPID #### [place] [address] MCV (RBC) [Entitic vol] 88.4 fL Normal 81.0-100.0 [facility] Comment on above: Performed By: #### M G, GFR, ANEU, ADIFF, CBC, CMP, A1C, LIPID #### [place] [address] Platelet 158 10 3/mcL Normal 150-450 [facility] Comment on above: Performed By: #### M G, GFR, ANEU, ADIFF, CBC, CMP, A1C, LIPID #### [place] [address] Platelet mean volume (Bld) [Entitic vol] 7.9 fL Normal 6.4-10.5 [facility] Comment on above: Performed By: #### M G, GFR, ANEU, ADIFF, CBC, CMP, A1C, LIPID #### [place] [address] RBC 4.68 10 6/mcL Normal 4.50-6.00 [facility] Comment on above: Performed By: #### M G, GFR, ANEU, ADIFF, CBC, CMP, A1C, LIPID #### [place] [id number] WBC 6.1 10 3/mcL Normal 4.5-10.8 [facility] Comment on above: Performed By: #### M G, GFR, ANEU, ADIFF, CBC, CMP, A1C, LIPID #### [place] [address] Erythrocyte distribution width (RBC) [Ratio] 16.9 % High 11.5-15.5 [facility] Comment on above: Order Comment: Colle ct blood every day at 3 AM for the next 3 days. Performed By: #### M G, GFR, ANEU, ADIFF, CBC, CMP, A1C, LIPID #### [place] [address] Hematocrit (Bld) [Volume fraction] 41.4 % Normal 40.0-52.0 [facility] Comment on above: Order Comment: Colle ct blood every day at 3 AM for the next 3 days. Performed By: #### M G, GFR, ANEU, ADIFF, CBC, CMP, A1C, LIPID #### [place] [address] Hgb 13.6 G/dL Normal 13.0-17.5 [facility] Comment on above: Order Comment: Colle ct blood every day at 3 AM for the next 3 days. Performed By: #### M G, GFR, ANEU, ADIFF, CBC, CMP, A1C, LIPID #### [place] [address] MCH (RBC) [Entitic mass] 29.0 pg Normal 27.0-33.0 [facility] Comment on above: Order Comment: Colle ct blood every day at 3 AM for the next 3 days. Performed By: #### M G, GFR, ANEU, ADIFF, CBC, CMP, A1C, LIPID #### [place] [id number] MCHC 32.8 G/dL Normal 32.0-36.0 [facility] Comment on above: Order Comment: Colle ct blood every day at 3 AM for the next 3 days. Performed By: #### M G, GFR, ANEU, ADIFF, CBC, CMP, A1C, LIPID #### [place] [id number] MCV (RBC) [Entitic vol] 88.3 fL Normal 81.0-100.0 [facility] Comment on above: Order Comment: Colle ct blood every day at 3 AM for the next 3 days. Performed By: #### M G, GFR, ANEU, ADIFF, CBC, CMP, A1C, LIPID #### [place] [address] Platelet 127 10 3/mcL Low 150-450 [facility] Comment on above: Order Comment: Colle ct blood every day at 3 AM for the next 3 days. Performed By: #### M G, GFR, ANEU, ADIFF, CBC, CMP, A1C, LIPID #### [place] [address] Platelet mean volume (Bld) [Entitic vol] 7.7 fL Normal 6.4-10.5 [facility] Comment on above: Order Comment: Colle ct blood every day at 3 AM for the next 3 days. Performed By: #### M G, GFR, ANEU, ADIFF, CBC, CMP, A1C, LIPID #### [place] [address] RBC 4.70 10 6/mcL Normal 4.50-6.00 [facility] Comment on above: Order Comment: Colle ct blood every day at 3 AM for the next 3 days. Performed By: #### M G, GFR, ANEU, ADIFF, CBC, CMP, A1C, LIPID #### [place] [address] WBC 4.6 10 3/mcL Normal 4.5-10.8 [facility] Comment on above: Order Comment: Colle ct blood every day at 3 AM for the next 3 days. Performed By: #### M G, GFR, ANEU, ADIFF, CBC, CMP, A1C, LIPID #### [place] [address] LABORATORYOrdered By: SYSTEM SYSTEM on 10-18-2024 Basophils [...] above: Interpretive Data: T esting performed on [email or web address] analyzer using enzymatic creatinine methodology. Electrolyte Balance [...] Basophil, Absolute 0.0 10 3/mcL Normal 0.0-0.3 [facility] Comment on above: Performed By: #### M G, GFR, ANEU, ADIFF, CBC, CMP, A1C, LIPID #### [address] [address] Basophils/100 WBC (Bld) 0.6 % Normal 0.0-2.5 [facility] Comment on above: Performed By: #### M G, GFR, ANEU, ADIFF, CBC, CMP, A1C, LIPID #### [place] [address] [place] [address] Eosinophil, Absolute 0.1 10 3/mcL Normal 0.0-0.7 [facility] Comment on above: Performed By: #### M G, GFR, ANEU, ADIFF, CBC, CMP, A1C, LIPID #### [place] [address] [place] [address] Eosinophils/100 WBC (Bld) 1.1 % Normal 0.0-6.0 [facility] Comment on above: Performed By: #### M G, GFR, ANEU, ADIFF, CBC, CMP, A1C, LIPID #### [address] [address] Lymphocyte, Absolute 0.9 10 3/mcL Normal 0.9-4.3 [facility] Comment on above: Performed By: #### M G, GFR, ANEU, ADIFF, CBC, CMP, A1C, LIPID #### [address] [address] Lymphocytes/100 WBC (Bld) 17.7 % Low 20.0-40.0 [facility] Comment on above: Performed By: #### M G, GFR, ANEU, ADIFF, CBC, CMP, A1C, LIPID #### [address] [address] Monocyte, Absolute 0.6 10 3/mcL Normal 0.1-1.4 [facility] Comment on above: Performed By: #### M G, GFR, ANEU, ADIFF, CBC, CMP, A1C, LIPID #### [address] [address] Monocytes/100 WBC (Bld) 11.1 % Normal 2.0-13.0 [facility] Comment on above: Performed By: #### M G, GFR, ANEU, ADIFF, CBC, CMP, A1C, LIPID #### [address] [address] Neutrophils/100 WBC (Bld) 69.5 % Normal 50.0-75.0 [facility] Comment on above: Performed By: #### M G, GFR, ANEU, ADIFF, CBC, CMP, A1C, LIPID #### [address] [address] .GFRon 10-17-2024 Estimated Glomerular Filtration Rate 113 ml/min/1.73sqm Normal [facility] Comment on above: Result Comment: Stages [...] ANEU, ADIFF, CBC, CMP, A1C, LIPID #### [address] [address] .NEUABSon 10-17-2024 Neutrophil, Absolute 3.7 10 3/mcL Normal 2.3-8.1 [facility] Comment on above: Performed By: #### M G, GFR, ANEU, ADIFF, CBC, CMP, A1C, LIPID #### [address] [address] BMPon 10-17-2024 BUN/Creatinine Ratio 7.7 ratio Low 10.0-22.0 [facility] Comment on above: Performed By: #### M G, GFR, ANEU, ADIFF, CBC, CMP, A1C, LIPID #### [address] [address] Calcium [Mass/Vol] 8.5 mg/dL Low 8.7-10.4 [facility] Comment on above: Performed By: #### M G, GFR, ANEU, ADIFF, CBC, CMP, A1C, LIPID #### [address] [address] Chloride [Moles/Vol] 101 mmol/L Normal 98-110 [facility] Comment on above: Performed By: #### M G, GFR, ANEU, ADIFF, CBC, CMP, A1C, LIPID #### [address] [address] CO2 [Moles/Vol] 31 mmol/L Normal 22-32 [facility] Comment on above: Performed By: #### M G, GFR, ANEU, ADIFF, CBC, CMP, A1C, LIPID #### [place] [id number] Creatinine [Mass/Vol] 0.65 mg/dL Normal 0.60-1.40 [facility] Comment on above: Result Comment: Test ing performed on [email or web address] analyzer using enzymatic creatinine methodology. Performed By: #### M G, GFR, ANEU, ADIFF, CBC, CMP, A1C, LIPID #### [place] [id number] Electrolyte Balance 7.0 mEq/L Normal 4.0-15.0 [facility] Comment on above: Performed By: #### M G, GFR, ANEU, ADIFF, CBC, CMP, A1C, LIPID #### [place] [id number] Glucose [Mass/Vol] 120 mg/dL High 70-110 [facility] Comment on above: Performed By: #### M G, GFR, ANEU, ADIFF, CBC, CMP, A1C, LIPID #### [place] [id number] Potassium [Moles/Vol] 3.3 mmol/L Low 3.5-5.0 [facility] Comment on above: Performed By: #### M G, GFR, ANEU, ADIFF, CBC, CMP, A1C, LIPID #### [place] [id number] Sodium [Moles/Vol] 139 mmol/L Normal 136-145 [facility] Comment on above: Performed By: #### M G, GFR, ANEU, ADIFF, CBC, CMP, A1C, LIPID #### [place] [id number] Urea nitrogen [Mass/Vol] 5.0 mg/dL Low 8.0-22.0 [facility] Comment on above: Performed By: #### M G, GFR, ANEU, ADIFF, CBC, CMP, A1C, LIPID #### [address] [address] CBCon 10-17-2024 Erythrocyte distribution width (RBC) [Ratio] 17.0 % High 11.5-15.5 [facility] Comment on above: Performed By: #### M G, GFR, ANEU, ADIFF, CBC, CMP, A1C, LIPID #### [place] [address] Hematocrit (Bld) [Volume fraction] 40.3 % Normal 40.0-52.0 [facility] Comment on above: Performed By: #### M G, GFR, ANEU, ADIFF, CBC, CMP, A1C, LIPID #### [place] [id number] Hgb 13.2 G/dL Normal 13.0-17.5 [facility] Comment on above: Performed By: #### M G, GFR, ANEU, ADIFF, CBC, CMP, A1C, LIPID #### [place] [address] MCH (RBC) [Entitic mass] 28.6 pg Normal 27.0-33.0 [facility] Comment on above: Performed By: #### M G, GFR, ANEU, ADIFF, CBC, CMP, A1C, LIPID #### [place] [address] MCHC 32.6 G/dL Normal 32.0-36.0 [facility] Comment on above: Performed By: #### M G, GFR, ANEU, ADIFF, CBC, CMP, A1C, LIPID #### [place] [address] MCV (RBC) [Entitic vol] 87.6 fL Normal 81.0-100.0 [facility] Comment on above: Performed By: #### M G, GFR, ANEU, ADIFF, CBC, CMP, A1C, LIPID #### [place] [address] Platelet 132 10 3/mcL Low 150-450 [facility] Comment on above: Performed By: #### M G, GFR, ANEU, ADIFF, CBC, CMP, A1C, LIPID #### [place] [address] Platelet mean volume (Bld) [Entitic vol] 7.8 fL Normal 6.4-10.5 [facility] Comment on above: Performed By: #### M G, GFR, ANEU, ADIFF, CBC, CMP, A1C, LIPID #### [facility] [address] [place] [address] RBC 4.60 10 6/mcL Normal 4.50-6.00 [facility] Comment on above: Performed By: #### M G, GFR, ANEU, ADIFF, CBC, CMP, A1C, LIPID #### [facility] [address] [place] [address] WBC 5.4 10 3/mcL Normal 4.5-10.8 [facility] Comment on above: Performed By: #### M G, GFR, ANEU, ADIFF, CBC, CMP, A1C, LIPID #### [facility] [address] [place] [address] ANKLE W/O CONTRAST RIGHTo n 10-17-2024 [...] spanning external fixator, multiplanar 10/17. transfer from [facility]. for right ankle fracture with dislocation. [...] 10/17/2024 1:17:29 PM Ordering Provider: TARA MISHRA [facility] MAIN LABORATORYOrdered By: SYSTEM SYSTEM on 10-17-2024 [...] Comment on above: Interpretive Data: T temitope [employer] (CHEST, 1991, 102:312S-25S) recommended therapeutic range for oral anticoagulant therapy is: LOW RISK: Prophylaxis of venous thrombosis INR: 2.0-3.0 Treatment of pulmonary embolism 2.0-3.0 Prevention of systemic embolism 2.0-3.0 HIGH RISK: Mechanical prosthetic valves 2.5-3.5 PROon 10-17-2024 INR Coag (PPP) [Relative time] 1.2 {INR} [facility]IN Comment on above: Result Comment: [employer] (CHEST, 1991, 102:312S-25S) recommended therapeutic range for oral anticoagulant therapy is: LOW RISK: Prophylaxis of venous thrombosis INR: 2.0-3.0 Treatment of pulmonary embolism 2.0-3.0 Prevention of systemic embolism 2.0-3.0 HIGH RISK: Mechanical prosthetic valves 2.5-3.5 Performed By: #### M G, GFR, ANEU, ADIFF, CBC, CMP, A1C, LIPID #### [place] [address] [place] [address] PT Coag (PPP) [Time] 13.7 s Normal 9.0-14.4 [facility] Comment on above: Result Comment: Effe ctive 12/11/07, Protime results may be affected by some antibiotics (i.e. Ciprofloxacin, Azithromycin, Bactrim) which may potentiate the action of oral anticoagulants, with further increases in Protime/INR. Performed By: #### M G, GFR, ANEU, ADIFF, CBC, CMP, A1C, LIPID #### [address] [address] XR FLUORO 1-2 HRS TECH TIMEo n [...] Intraoperative fluoroscopic images. Please refer to the granulating machine operator's report for further information. I have personally reviewed the images of this examination and agree with the resident's findings and interpretation. Interpreted by: Corey Wahl Preliminary Report By: Nadya Hudson Electronically signed By Corey Wahl Dictated Date: 10/17/2024 1:42:02 PM Prelim Date: 10/17/2024 2:15:08 PM Sign Date: 10/17/2024 2:15:08 PM Ordering Provider: NANI Kate [facility] .Auto Diffon 10-16-2024 Basophil, Absolute 0.1 10 3/mcL Normal 0.0-0.3 [facility] Comment on above: Performed By: #### C MARGAUX, MD LILIANAW, ADIFF #### [address] [address] Basophils/100 WBC (Bld) 0.8 % Normal 0.0-2.5 [facility] Comment on above: Performed By: #### C BC, MD LILIANAW, ADIFF #### [address] [address] Eosinophil, Absolute 0.1 10 3/mcL Normal 0.0-0.7 [facility] Comment on above: Performed By: #### LILIANA VLILA MDW, ADIFF #### [address] [address] Eosinophils/100 WBC (Bld) 1.2 % Normal 0.0-6.0 [facility] Comment on above: Performed By: #### C LILIANA DAMICO MDW, ADIFF #### [address] [address] Lymphocyte, Absolute 1.4 10 3/mcL Normal 0.9-4.3 [facility] Comment on above: Performed By: #### C LILIANA DAMICO MDW, ADIFF #### [address] [address] Lymphocytes/100 WBC (Bld) 19.8 % Low 20.0-40.0 [facility] Comment on above: Performed By: #### C LILIANA DAMICO MDW, ADIFF #### [address] [address] Monocyte, Absolute 0.7 10 3/mcL Normal 0.1-1.4 [facility] Comment on above: Performed By: #### C LILIANA DAMICO MDW, ADIFF #### [address] [address] Monocytes/100 WBC (Bld) 10.7 % Normal 2.0-13.0 [facility] Comment on above: Performed By: #### C LILIANA DAMICO MDW, ADIFF #### [address] [address] Neutrophils/100 WBC (Bld) 67.5 % Normal 50.0-75.0 [facility] Comment on above: Performed By: #### LILIANA VILLA MDW, ADIFF #### [address] [address] Basophil, Absolute 0.0 10 3/mcL Normal 0.0-0.3 [facility] Comment on above: Performed By: #### M G, GFR, LILIANA, ADMAURICIO, CBC, CMP, A1C, LIPID #### [address] [address] Basophils/100 WBC (Bld) 0.7 % Normal 0.0-2.5 [facility] Comment on above: Performed By: #### M G, GFR, ANEU, ADIFF, CBC, CMP, A1C, LIPID #### [address] [address] Eosinophil, Absolute 0.1 10 3/mcL Normal 0.0-0.7 [facility] Comment on above: Performed By: #### M G, GFR, ANEU, ADIFF, CBC, CMP, A1C, LIPID #### [address] [address] Eosinophils/100 WBC (Bld) 0.8 % Normal 0.0-6.0 [facility] Comment on above: Performed By: #### M G, GFR, ANEU, ADIFF, CBC, CMP, A1C, LIPID #### [address] [address] Lymphocyte, Absolute 1.1 10 3/mcL Normal 0.9-4.3 [facility] Comment on above: Performed By: #### M G, GFR, ANEU, ADIFF, CBC, CMP, A1C, LIPID #### [address] [address] Lymphocytes/100 WBC (Bld) 17.2 % Low 20.0-40.0 [facility] Comment on above: Performed By: #### M G, GFR, ANEU, ADIFF, CBC, CMP, A1C, LIPID #### [address] [address] Monocyte, Absolute 0.6 10 3/mcL Normal 0.1-1.4 [facility] Comment on above: Performed By: #### M G, GFR, ANEU, ADIFF, CBC, CMP, A1C, LIPID #### [address] [address] Monocytes/100 WBC (Bld) 8.7 % Normal 2.0-13.0 [facility] Comment on above: Performed By: #### M G, GFR, ANEU, ADIFF, CBC, CMP, A1C, LIPID #### [address] [address] Neutrophils/100 WBC (Bld) 72.6 % Normal 50.0-75.0 [facility] Comment on above: Performed By: #### M G, GFR, ANEU, ADIFF, CBC, CMP, A1C, LIPID #### [address] [address] .GFRon 10-16-2024 Estimated Glomerular Filtration Rate 110 ml/min/1.73sqm [facility]IN Comment on above: Result Comment: Stages [...] ANEU, ADIFF, CBC, CMP, A1C, LIPID #### [place] [address] Estimated Glomerular Filtration Rate 111 ml/min/1.73sqm [facility] Comment on above: Result Comment: Stages [...] ANEU, ADIFF, CBC, CMP, A1C, LIPID #### [address] [address] .MDWon 10-16-2024 Monocyte Distribution Width 19.45 Normal 0.00-20.00 [facility] Comment on above: Result Comment: For ED adult patients suspected of sepsis, MDW<=20.0 does not rule out sepsis or risk of sepsis Performed By: #### M G, GFR, ANEU, ADIFF, CBC, CMP, A1C, LIPID #### [place] [address] Monocyte Distribution Width 17.52 Normal 0.00-20.00 [facility] Comment on above: Result Comment: For ED adult patients suspected of sepsis, MDW<=20.0 does not rule out sepsis or risk of sepsis Performed By: #### M G, GFR, ANEU, ADIFF, CBC, CMP, A1C, LIPID #### [place] [address] .NEUABSon 10-16-2024 Neutrophil, Absolute 4.7 10 3/mcL Normal 2.3-8.1 [facility] Comment on above: Performed By: #### M G, GFR, ANEU, ADIFF, CBC, CMP, A1C, LIPID #### [place] [address] Neutrophil, Absolute 4.7 10 3/mcL Normal 2.3-8.1 [facility] Comment on above: Performed By: #### M G, GFR, ANEU, ADIFF, CBC, CMP, A1C, LIPID #### [place] [address] ABO/Rh (Gel)on 10-16-2024 ABO/Rh Interp Positive Invalid Interpretation Code [facility] Comment on above: Performed By: #### M G, GFR, ANEU, ADIFF, CBC, CMP, A1C, LIPID #### [place] [id number] ABS (Gel)on 10-16-2024 ABSC Interp (Gel) Negative Normal [facility] Comment on above: Performed By: #### M G, GFR, ANEU, ADIFF, CBC, CMP, A1C, LIPID #### [place] [id number] Stefanie 10-16-2024 Ethanol Level <10.0 Normal [facility] Comment on above: Performed By: #### M G, GFR, ANEU, ADIFF, CBC, CMP, A1C, LIPID #### [facility] [address] [place] [address] ANKLE COMPLETE RTon 10-17-19 25 ANKLE COMPLETE RT [facility] [address] [place], [place] [address] Patient: SOCORRO KELLEY Phone#: : [phone] Age: 54 Gender: M Pt. Type: ER Account: [id number] Location: [facility] Ordering: JAKE MAXWELL Exam Date: 10/16/2024/13:23 Family Phys: Charge Code: 552185 Physician: Lee Order #: [id number] Dose#: PROCEDURE: X-RAY ANKLE COMPLETE RT MIN [...] Bagley MD on 10/16/2024 at 14:15 Normal [facility] BMPon 10-16-2024 BUN/Creatinine Ratio 15.9 ratio Normal 10.0-22.0 [facility] Comment on above: Performed By: #### M G, GFR, ANEU, ADIFF, CBC, CMP, A1C, LIPID #### [address] [address] Calcium [Mass/Vol] 9.4 mg/dL Normal 8.7-10.4 [facility] Comment on above: Performed By: #### M G, GFR, ANEU, ADIFF, CBC, CMP, A1C, LIPID #### [address] [address] Chloride [Moles/Vol] 103 mmol/L Normal 98-110 [facility] Comment on above: Performed By: #### M G, GFR, ANEU, ADIFF, CBC, CMP, A1C, LIPID #### [address] [address] CO2 [Moles/Vol] 32 mmol/L Normal 22-32 [facility] Comment on above: Performed By: #### M G, GFR, ANEU, ADIFF, CBC, CMP, A1C, LIPID #### [address] [address] Creatinine [Mass/Vol] 0.69 mg/dL Normal 0.60-1.40 [facility] Comment on above: Result Comment: Test ing performed on [email or web address] analyzer using enzymatic creatinine methodology. Performed By: #### M G, GFR, ANEU, ADIFF, CBC, CMP, A1C, LIPID #### [address] [address] Electrolyte Balance 5.0 mEq/L Normal 4.0-15.0 [facility] Comment on above: Performed By: #### M G, GFR, ANEU, ADIFF, CBC, CMP, A1C, LIPID #### [address] [address] Glucose [Mass/Vol] 94 mg/dL Normal 70-110 [facility] Comment on above: Performed By: #### M G, GFR, ANEU, ADIFF, CBC, CMP, A1C, LIPID #### [address] [address] Potassium [Moles/Vol] 3.6 mmol/L Normal 3.5-5.0 [facility] Comment on above: Performed By: #### M G, GFR, ANEU, ADIFF, CBC, CMP, A1C, LIPID #### [place] [id number] Sodium [Moles/Vol] 140 mmol/L Normal 136-145 [facility] Comment on above: Performed By: #### M G, GFR, ANEU, ADIFF, CBC, CMP, A1C, LIPID #### [place] [id number] Urea nitrogen [Mass/Vol] 11.0 mg/dL Normal 8.0-22.0 [facility] Comment on above: Performed By: #### M G, GFR, ANEU, ADIFF, CBC, CMP, A1C, LIPID #### [place] [id number] CBCon 10-16-2024 Erythrocyte distribution width (RBC) [Ratio] 16.5 % High 11.5-15.5 [facility] Comment on above: Performed By: #### C LILIANA DAMICO MDW, ADIFF #### [place] [id number] Hematocrit (Bld) [Volume fraction] 45.2 % Normal 40.0-52.0 [facility] Comment on above: Performed By: #### C LILIANA DAMICO MDW, ADIFF #### [place] [address] Hgb 14.8 G/dL Normal 13.0-17.5 [facility] Comment on above: Performed By: #### C LILIANA DAMICO MDW, ADIFF #### [place] [id number] MCH (RBC) [Entitic mass] 28.8 pg Normal 27.0-33.0 [facility] Comment on above: Performed By: #### C LILIANA DAMICO MDW, ADIFF #### [place] [id number] MCHC 32.8 G/dL Normal 32.0-36.0 [facility] Comment on above: Performed By: #### C LILIANA DAMICO MDW, ADIFF #### [facility] [address] [place], [place] [address] MCV (RBC) [Entitic vol] 87.8 fL Normal 81.0-100.0 [facility] Comment on above: Performed By: #### C LILIANA DAMICO MDW, ADIFF #### [address] [address] Platelet 172 10 3/mcL Normal 150-450 [facility] Comment on above: Performed By: #### C LILIANA DAMICO MDW, ADIFF #### [address] [address] Platelet mean volume (Bld) [Entitic vol] 7.9 fL Normal 6.4-10.5 [facility] Comment on above: Performed By: #### C LILIANA DAMICO MDW, ADIFF #### [place] [id number] RBC 5.14 10 6/mcL Normal 4.50-6.00 [facility] Comment on above: Performed By: #### C LILIANA DAMICO MDW, ADIFF #### [address] [address] WBC 6.9 10 3/mcL Normal 4.5-10.8 [facility] Comment on above: Performed By: #### C LILIANA DAMICO MDW, ADIFF #### [address] [address] Erythrocyte distribution width (RBC) [Ratio] 17.1 % High 11.5-15.5 [facility] Comment on above: Performed By: #### M G, GFR, ANEU, ADMAURICIO, CBC, CMP, A1C, LIPID #### [address] [address] Hematocrit (Bld) [Volume fraction] 43.2 % Normal 40.0-52.0 [facility] Comment on above: Performed By: #### M G, GFR, ANEU, ADMAURICIO, CBC, CMP, A1C, LIPID #### [address] [address] Hgb 14.3 G/dL Normal 13.0-17.5 [facility] Comment on above: Performed By: #### M G, GFR, ANEU, ADMAURICIO, CBC, CMP, A1C, LIPID #### [place] [address] MCH (RBC) [Entitic mass] 28.9 pg Normal 27.0-33.0 [facility] Comment on above: Performed By: #### M G, GFR, ANEU, ADIFF, CBC, CMP, A1C, LIPID #### [place] [id number] MCHC 33.0 G/dL Normal 32.0-36.0 [facility] Comment on above: Performed By: #### M G, GFR, ANEU, ADIFF, CBC, CMP, A1C, LIPID #### [place] [address] MCV (RBC) [Entitic vol] 87.4 fL Normal 81.0-100.0 [facility] Comment on above: Performed By: #### M G, GFR, ANEU, ADIFF, CBC, CMP, A1C, LIPID #### [place] [address] Platelet 152 10 3/mcL Normal 150-450 [facility] Comment on above: Performed By: #### M G, GFR, ANEU, ADIFF, CBC, CMP, A1C, LIPID #### [place] [address] Platelet mean volume (Bld) [Entitic vol] 7.7 fL Normal 6.4-10.5 [facility] Comment on above: Performed By: #### M G, GFR, ANEU, ADIFF, CBC, CMP, A1C, LIPID #### [place] [address] RBC 4.94 10 6/mcL Normal 4.50-6.00 [facility] Comment on above: Performed By: #### M G, GFR, ANEU, ADIFF, CBC, CMP, A1C, LIPID #### [place] [address] WBC 6.5 10 3/mcL Normal 4.5-10.8 [facility] Comment on above: Performed By: #### M G, GFR, ANEU, ADIFF, CBC, CMP, A1C, LIPID #### [facility] [address] [place] [address] CBC + DIFFon 10-16-2024 Baso # 0.01 x10EE3/UL Normal 0.00 - 0.10 [facility] Comment on above: Performed By: #### [id number] #### [facility],[address] [place] [id number] Basophils/100 WBC (Bld) 0.2 % Normal 0.0 - 2.0 [facility] Comment on above: Performed By: #### [id number] #### [facility],[address] [place] [id number] CBC + DIFF Normal [facility] Comment on above: Result Comment: CBC- COMPLETE BLOOD COUNT Performed By: #### [id number] #### [facility],[address] [place] [id number] EO # 0.04 x10EE3/UL Normal 0.00 - 0.50 [facility] Comment on above: Performed By: #### 2 [id number] #### [facility],[address] [place] [id number] Eosinophils/100 WBC (Bld) 0.7 % Normal 0.0 - 7.0 [facility] Comment on above: Performed By: #### 2 [id number] #### [facility],[address] [place], [place] [address] [id number] Erythrocyte distribution width (RBC) [Ratio] 15.2 % Normal 12.0 - 15.6 [facility] Comment on above: Performed By: #### 2 15580 #### [facility],[address] [place] [address] 64958 Hematocrit (Bld) [Volume fraction] 44.1 % Normal 40.0 - 52.0 [facility] Comment on above: Performed By: #### 2 45016 #### [facility],[address] [place] [address] 46732 Hemoglobin (Bld) [Mass/Vol] 15.4 g/dL Normal 13.0 - 17.5 [facility] Comment on above: Performed By: #### 2 84395 #### [facility],[address] [place] [address] Lymph # 0.96 x10EE3/UL Normal 0.80 - 2.80 [facility] Comment on above: Performed By: #### 2 07773 #### [facility],[address] [place] [address] Lymphocytes/100 WBC (Bld) 17.1 % Low 20.0 - 45.0 [facility] Comment on above: Performed By: #### 2 72025 #### [facility],[address] [place], [place] [id number] MANUAL DIFF N/A Normal [facility] Comment on above: Performed By: #### 2 61902 #### [facility],[address] [place] [address] MCH (RBC) [Entitic mass] 31 pg Normal 27 - 33 [facility] Comment on above: Performed By: #### 2 41780 #### [facility],[address] [place] [address] MCHC 35 X10 3 Normal 32 - 36 [facility] Comment on above: Performed By: #### 2 85708 #### [facility],[address] [place], [place] [id number] MCV (RBC) [Entitic vol] 88 fL Normal 81 - 98 [facility] Comment on above: Performed By: #### 2 52195 #### [facility],[address] [place] [address] Steele # 0.47 x10EE3/UL Normal 0.20 - 1.00 [facility] Comment on above: Performed By: #### 2 62955 #### [facility],[address] [place] [address] 24576 MONOS % 8.4 % Normal 0.0 - 10.0 [facility] Comment on above: Performed By: #### 2 54815 #### [facility],[address] [place] [address] 15222 Morphology Rocky (Bld) [Interp] N/A Normal [facility] Comment on above: Performed By: #### 2 21756 #### [facility],[address] [place] [address]301 Neut # 4.12 x10EE3/UL Normal 1.50 - 7.10 [facility] Comment on above: Performed By: #### 2 88320 #### [facility],[address] [place] [address] 37648 Neutrophils/100 WBC (Bld) 73.6 % Normal 46.0 - 76.0 [facility] Comment on above: Performed By: #### 2 46488 #### [facility],[address] [place] [address] 07481 PLATELET 148 x10EE3/UL Low 150 - 450 [facility] Comment on above: Performed By: #### 2 14517 #### [facility],[address] [place] [address] 72752 Platelet mean volume (Bld) [Entitic vol] 8.1 fL Normal 6.4 - 10.5 [facility] Comment on above: Result Comment: AUTO MATED DIFFERENTIAL Performed By: #### 2 90729 #### [facility],[address] [place] [address] 01099 RBC 5.02 x 10EE6/UL Normal 4.50 - 6.00 [facility] Comment on above: Performed By: #### 2 12008 #### [facility],[address] [place] [address] 24455 WBC 5.6 x 10EE3/UL Normal 4.5 - 10.8 [facility] Comment on above: Performed By: #### 2 58312 #### [facility],[address] [place] [address] 16744 CMPon 10-16-2024 Albumin Level 3.6 G/dL Normal 3.2-4.8 [facility] Comment on above: Performed By: #### M G, GFR, ANEU, ADIFF, CBC, CMP, A1C, LIPID #### [address] [address] Albumin/Globulin [Mass ratio] 1.0 {ratio} Normal 0.9-1.6 [facility] Comment on above: Performed By: #### M G, GFR, ANEU, ADIFF, CBC, CMP, A1C, LIPID #### [address] [address] ALP [Catalytic activity/Vol] 70 U/L Normal 38-126 [facility] Comment on above: Performed By: #### M G, GFR, ANEU, ADIFF, CBC, CMP, A1C, LIPID #### [address] [address] ALT [Catalytic activity/Vol] 12 U/L Normal 12-55 [facility] Comment on above: Performed By: #### M G, GFR, ANEU, ADIFF, CBC, CMP, A1C, LIPID #### [address] [address] AST [Catalytic activity/Vol] 17 U/L Normal 8-34 [facility] Comment on above: Performed By: #### M G, GFR, ANEU, ADIFF, CBC, CMP, A1C, LIPID #### [address] [address] Bili Total 0.60 mg/dL Normal 0.20-1.20 [facility] Comment on above: Result Comment: Use of this assay is not recommended for patients undergoing treatment with eltrombopag due to the potential for falsely elevated results. Performed By: #### M G, GFR, ANEU, ADIFF, CBC, CMP, A1C, LIPID #### [address] [address] BUN/Creatinine Ratio 14.1 ratio Normal 10.0-22.0 [facility] Comment on above: Performed By: #### M G, GFR, ANEU, ADIFF, CBC, CMP, A1C, LIPID #### [address] [address] Calcium [Mass/Vol] 9.0 mg/dL Normal 8.7-10.4 [facility] Comment on above: Performed By: #### M G, GFR, ANEU, ADIFF, CBC, CMP, A1C, LIPID #### [address] [address] Chloride [Moles/Vol] 102 mmol/L Normal 98-110 [facility] Comment on above: Performed By: #### M G, GFR, ANEU, ADIFF, CBC, CMP, A1C, LIPID #### [address] [address] CO2 [Moles/Vol] 33 mmol/L High 22-32 [facility] Comment on above: Performed By: #### M G, GFR, ANEU, ADIFF, CBC, CMP, A1C, LIPID #### [place] [id number] Creatinine [Mass/Vol] 0.71 mg/dL Normal 0.60-1.40 [facility] Comment on above: Result Comment: Test ing performed on [email or web address] analyzer using enzymatic creatinine methodology. Performed By: #### M G, GFR, ANEU, ADIFF, CBC, CMP, A1C, LIPID #### [address] [address] Electrolyte Balance 4.0 mEq/L Normal 4.0-15.0 [facility] Comment on above: Performed By: #### M G, GFR, ANEU, ADIFF, CBC, CMP, A1C, LIPID #### [address] [address] Globulin 3.5 G/dL Normal 2.5-4.2 [facility] Comment on above: Performed By: #### M G, GFR, ANEU, ADIFF, CBC, CMP, A1C, LIPID #### [address] [address] Glucose [Mass/Vol] 109 mg/dL Normal 70-110 [facility] Comment on above: Performed By: #### M G, GFR, ANEU, ADIFF, CBC, CMP, A1C, LIPID #### [address] [address] Potassium [Moles/Vol] 3.7 mmol/L Normal 3.5-5.0 [facility] Comment on above: Performed By: #### M G, GFR, ANEU, ADIFF, CBC, CMP, A1C, LIPID #### [address] [address] Sodium [Moles/Vol] 139 mmol/L Normal 136-145 [facility] Comment on above: Performed By: #### M G, GFR, ANEU, ADIFF, CBC, CMP, A1C, LIPID #### [address] [address] Total Protein 7.1 G/dL Normal 5.7-8.2 [facility] Comment on above: Performed By: #### M G, GFR, ANEU, ADIFF, CBC, CMP, A1C, LIPID #### [address] [address] Urea nitrogen [Mass/Vol] 10.0 mg/dL Normal 8.0-22.0 [facility] Comment on above: Performed By: #### M G, GFR, ANEU, ADIFF, CBC, CMP, A1C, LIPID #### [address] [address] CMP with eGFRon 10-16-2024 AGE 54 years Normal [facility] Comment on above: Performed By: #### 2 63572 ####[facility],[address] [place] [address] 6[address]87 Albumin [Mass/Vol] 3.4 g/dL Normal 3.4 - 5.0 [facility] Comment on above: Performed By: #### 2 90730 ####[facility],[address] [place] [address] 41738 Albumin/Globulin [Mass ratio] 0.9 {ratio} Normal 0.9 - 1.6 [facility] Comment on above: Performed By: #### 2 33312 ####[facility],[address] [place] [address] 32679 ALK PHOS 76 U/L Normal 46 - 116 [facility] Comment on above: Performed By: #### 2 15233 ####[facility],[address] [place] [address] 08174 ALT [Catalytic activity/Vol] 17 U/L Normal 16 - 63 [facility] Comment on above: Performed By: #### 2 89852 ####[facility],[address] [place] [address] 98726 Anion gap [Moles/Vol] 11 mmol/L Normal 10 - 20 [facility] Comment on above: Performed By: #### 2 91791 ####[facility],[address] [place] [address] 46175 AST [Catalytic activity/Vol] 17 U/L Normal 15 - 37 [facility] Comment on above: Performed By: #### 2 87975 ####[facility],[address] [place] [address] 24859 B/C RATIO 13 ratio Normal 0 - 30 [facility] Comment on above: Performed By: #### 2 32154 ####[facility],[address] [place] [address] 08655 Bilirubin [Mass/Vol] 0.5 mg/dL Normal 0.2 - 1.0 [facility] Comment on above: Performed By: #### 2 30241 ####[facility],[address] [place] [address] 11054 Calcium [Mass/Vol] 8.9 mg/dL Normal 8.5 - 10.1 [facility] Comment on above: Performed By: #### 2 71590 ####[facility],[address] [place] [address] 40481 Chloride [Moles/Vol] 101 mmol/L Normal 98 - 107 [facility] Comment on above: Performed By: #### 2 14996 ####[facility],[address] [place] [address]7765 CMP with eGFR Normal [facility] Comment on above: Result Comment: COMP REHENSIVE METABOLIC PANEL Performed By: #### 2 23877 ####[facility],[address] [place] [address] 56372 CO2 [Moles/Vol] 30.7 mmol/L Normal 21.0 - 32.0 [facility] Comment on above: Performed By: #### 2 34936 ####[facility],[address] [place] [address] 74162 Creatinine [Mass/Vol] 0.96 mg/dL Normal 0.70 - 1.30 [facility] Comment on above: Performed By: #### 2 49580 ####[facility],[address] [place] [address]15 GFR/1.73 sq M.predicted among non-blacks MDRD (S/P/Bld) [Vol rate/Area] mL/min/{1.73_m2} Normal 60 - 999 [facility] Comment on above: Performed By: #### 2 76528 ####[facility],[address] [place] [address] Result Comment: ACCO RDING TO THE NATIONAL KIDNEY DISEASE EDUCATION PROGRAM(NKDE), A NORMAL eGFR IS A VALUE GREATER THAN OR EQUAL TO 60 ML/MIN/1.73 SQ METERS. CHRONIC KIDNEY DISEASE: <60mL/MIN/1.73 SQ METERS KIDNEY FAILURE: <15mL/MIN/1.73 SQ METERS THIS TEST SHOULD ONLY BE USED FOR PATIENTS 18 YEARS OF AGE AND OLDER. Globulin (S) [Mass/Vol] 3.7 g/dL Normal 1.5 - 3.8 [facility] Comment on above: Performed By: #### 2 91232 ####[facility],[address] [place] [address]335 Glucose [Mass/Vol] 94 mg/dL Normal 74 - 106 [facility] Comment on above: Performed By: #### 2 69011 ####[facility],[address] [place] [address]015 Potassium [Moles/Vol] 3.6 mmol/L Normal 3.5 - 5.1 [facility] Comment on above: Performed By: #### 2 30594 ####[address] [address] Protein [Mass/Vol] 7.1 g/dL Normal 6.4 - 8.2 [facility] Comment on above: Performed By: #### 2 13209 ####[address] [address] Sodium [Moles/Vol] 139 mmol/L Normal 136 - 145 [facility] Comment on above: Performed By: #### 2 85234 ####[address] [address] Urea nitrogen [Mass/Vol] 12 mg/dL Normal 7 - 18 [facility] Comment on above: Performed By: #### 2 70972 ####[address] [address] ED MED ADMINISTRATION DETAIL on 10-16-2024 ED MED ADMINISTRATION DETAIL Field Test Engineer [place] [address] [id number] 10/16/2024 Patient: SOCORRO KELLEY Sex: Male : 1970 Age: 54y MEASUREMENTS: Wt: 140.2 kg, Ht/Wilson: 69.0 in, BMI: 45.63 ALLERGIES: Wxfdwyd-TJR-OoN Reductase Inhibitors Medication Ordered Medication Administration Date/Time [...] Destiney Chu R.N. 1 of 1 Normal [facility] ED NURSES CLINICAL NOTEon ED NURSES CLINICAL NOTE Nurse Narrative Nurse Clinical Narrative [address] [place] [address] [phone] 10/16/2024 12:34:00 Patient: SOCORRO KELLEY Sex: Male : 1970 Age: 54y Disposition: Transfer to [facility] Disposition Decision Time: 14:27 10/16/2024 Departure [...] had swelling, redness and trouble walking. Treatment ROLL REPAIRER: Ice. SEPSIS SCREEN: NEGATIVE. SIRS criteria negative. [...] (0.083 %) solution for nebulization -- 12:10/16/24 [facility] Silvina Maguire R.N. pravastatin 40 mg tablet -- 12:10/16/24 [facility] Silvina Maguire R.N. metoprolol succinate ER 100 mg tablet,extended release 24 hr -- 12:10/16/24 [facility] Silvina Maguire R.N. spironolactone 25 mg tablet -- 12:10/16/24 [facility] Silvina Maguire R.N. trazodone 100 mg tablet -- 12:10/16/24 [facility] Silvina Maguire R.N. tizanidine 2 mg tablet -- 12:10/16/24 [facility] Silvina Maguire R.N. hydroxyzine pamoate 25 mg capsule -- 12:10/16/24 [facility] Silvina Maguire R.N. furosemide 20 mg tablet -- 12:10/16/24 [facility] Silvina Maguire R.N. duloxetine 20 mg capsule,delayed release -- 12:10/16/24 [facility] Silvina Maguire R.N. budesonide-formoterol HFA 80 mcg-4.5 mcg/actuation aerosol inhaler -- 12:10/16/24 [facility] Silvina Maguire R.N. True Metrix Glucose Test Strip -- 12:10/16/24 [facility] Silvina Maguire R.N. Xarelto 20 mg tablet -- 12:10/16/24 [facility] Silvina Maguire R.N. potassium chloride ER 20 mEq tablet,extended release -- 12:10/16/24 [facility] Silvina Maguire R.N. TRUEplus Lancets 28 gauge -- 12:10/16/24 [facility] Silvina Maguire R.N. Trulicity 1.5 mg/0.5 mL subcutaneous pen injector -- 12:51 10/16/24 [facility] Silvina Maguire R.N. Allergies: Snciukg-EIG-InA Reductase Inhibitors -- 12:40 10/16/24 EDT Silvina [...] 10/16/24. E (more content not included)... Normal [facility] ED ORDER SHEET (CPOE ONLY)on 10-16-2024 ED ORDER SHEET (CPOE ONLY) Order Sheet Order Sheet [address] [place] [address] [id number] 10/16/2024 Patient: SOCORRO KELLEY Sex: Male : 1970 Age: 54y MEASUREMENTS: Wt: 140.2 kg, Ht/Wilson: 69.0 in, BMI: 45.63 ALLERGIES: Jwdddhe-FHA-DbP Reductase Inhibitors MEDICATION/IV/DRIP/FLU ID ORDERS Order Description [...] 14:19 10/16/2024 Reymundo Carvajal Debra Schrock, R.N. RRoahn DIAGNOSTIC STUDY ORDERS Order Description Priority Entered [...] M.D. (10/16/2024 15:18 EDT)] 3 of 3 [facility] ED PHYSICIAN CLINICAL REPORT on 10-16-2024 ED PHYSICIAN CLINICAL REPORT Narrative Physician Clinical Narrative [place] [id number] [facility] [place] [address] [phone] 10/16/2024 12:34:00 Patient: SOCORRO KELLEY Sex: Male : 1970 Age: 54y Disposition: Transfer to [facility] Disposition Decision Time: 14:27 10/16/2024 Measurements [...] pen injector Xarelto 20 mg tablet Allergies: Gwwwubo-BNK-GvS Reductase Inhibitors SOCIAL HISTORY Does not use [...] 148 x10/UL (more content not included)... Normal [facility] ED SUPER BILLon 10-16-2024 ED SUPER BILL [address] [place] [address] [phone] 10/16/2024 Patient: SOCORRO KELLEY Sex: Male : 1970 Age: 54y Facility Professional Category Item Description Code Code Quantity Fee Total Nurse/E/M EMERGENCY 250482 1 $0.00 $0.00 DEPT VISIT HIGH SEVERITYFUNCJ (86197-02) Nurse/IV/IM/Infusions IVP initial (856866) 027486 1 $0.00 $0.00 Grand $0.00 Total Providers Jake Maxwell M.D. Jake Maxwell M.D. Chief Complaint Injury to right foot and right ankle. Principal Diagnosis Closed displaced, severely angulated right bimalleolar fracture. 1 of 2 [facility] ICD-10 Codes S82.841A: Displaced bimalleolar fracture of right lower leg, initial encounter for closed fracture 2 of 2 Normal [facility] ED VISIT SUMMARYon ED VISIT SUMMARY Visit Overview Visit Overview [address] [place] [address] [id number] 10/16/2024 [id number] Sex: Male : 1970 Age: 54y 10/16/2024 07:42 PM EDT ED Arrival:12:34 10/16/2024 EDT Status: Recent Travel:no Language:eng Adv Directive:No Isolation Status: Ethnicity:N Fall Risk:risk Infectious Disease Exposure:no Measurements:5'9 / 175.3 Self-Harm Status:risk Sepsis Screen:negative cm 309.0 lb / 140.2 kg Chief Complaint:RIGHT LOWER EXTREMITY PAIN, RIGHT LOWER EXTREMITY REDNESS, and RIGHT LOWER EXTREMITY SWELLING ALLERGIES Agzqgtw-ZYC-PmA Reductase Inhibitors HOME MEDICATIONS albuterol sulfate 2.5 [...] RIGHT BIMALLEOLAR FRACTURE 4 of 4 Normal [facility] ED VITALS FLOW SHEETon 10-16 ED VITALS FLOW SHEET Vitals Vital Sign Flow Sheet [address] [address] [id number] 10/16/2024 Patient: SOCORRO KELLEY Sex: Male : [...] 98.9 F 10 2 of 2 Normal [facility] FOOT COMPLETE RTon FOOT COMPLETE RT [place] [address] Patient: SOCORRO KELLEY Phone#: : 1970 Age: 54 Gender: M Pt. Type: ER Account: [id number] Location: [facility] Ordering: JAKE MAXWELL Exam Date: 10/16/2024/13:00 Family Phys: Charge Code: 601133 Physician: Lee Order #: [id number] Dose#: PROCEDURE: X-RAY FOOT RT COMPLETE MIN [...] Bagley MD on 10/16/2024 at 14:23 Normal [facility] LABORATORYOrdered By: SYSTEM SYSTEM on 10-16-2024 Monocyte [...] [Moles/Vol] 1.1 mmol/L Normal 0.4 - 2.0 [facility] Comment on above: Performed By: #### 2 28689 #### [facility],[address] [place] [address]42 NT-proBNPon 10-16-2024 Natriuretic peptide B (Bld) [Mass/Vol] 291 pg/mL High 0 - 125 [facility] Comment on above: Performed By: #### 2 54385 #### [facility],[address] [place] [address] PROTHROMBIN TIME AND INRon 0 10-16-2024 INR Coag (PPP) [Relative time] 1.4 {INR} High 0.8 - 1.2 [facility] Comment on above: Result Comment: T HE [...] MECHANICAL HEART VALVES Performed By: #### 2 66064 ####[facility],[address] [place] [address] 19881 PROTHROMBIN TIME AND INR Normal [facility] Comment on above: Result Comment: PROT HROMBIN TIME AND INR Performed By: #### 2 39970 ####[facility],[address] [place] [address]31 PT-COUMADIN 15.9 sec High 9.3 - 14.1 [facility] Comment on above: Performed By: #### 2 34163 ####[facility],[address] [place] [address] 39546 TIBIA-FIBULA RTon 10-16-2024 TIBIA-FIBULA RT [place] [address] Patient: SOCORRO KELLEY Phone#: : 1970 Age: 54 Gender: M Pt. Type: ER Account: [id number] Location: [facility] Ordering: JAKE MAXWELL Exam Date: 10/16/2024/13:23 Family Phys: Charge Code: 371699 Physician: Lee Order #: [id number] Dose#: PROCEDURE: X-RAY TIB FIB RT 2 [...] Bagley MD on 10/16/2024 at 14:12 Normal [facility] XR ANKLE MINIMUM 3 VIEWS LEF Ton [...] Sign Date: 10/16/2024 10:39:42 PM Ordering Provider: [facility] MAIN XR ANKLE MINIMUM 3 [...] Sign Date: 10/16/2024 9:20:54 PM Ordering Provider: [facility] MAIN XR ANKLE MINIMUM 3 [...] 10/16/2024 7:53:07 PM Ordering Provider: EM GARCIA [facility] MAIN XR ANKLE MINIMUM 3 VIEWS RIGHT [...] 6:28:12 PM Ordering Provider: EM GARCIA Normal [facility] .Auto Diffon 10-04-2024 Basophil, Absolute 0.0 10 3/mcL Normal 0.0-0.3 [facility] Comment on above: Performed By: #### M G, GFR, ANEU, ADIFF, CBC, CMP, A1C, LIPID #### [address] [address] Basophils/100 WBC (Bld) 0.9 % Normal 0.0-2.5 [facility] Comment on above: Performed By: #### M G, GFR, ANEU, ADIFF, CBC, CMP, A1C, LIPID #### [address] [address] Eosinophil, Absolute 0.1 10 3/mcL Normal 0.0-0.7 [facility] Comment on above: Performed By: #### M G, GFR, ANEU, ADIFF, CBC, CMP, A1C, LIPID #### [address] [address] Eosinophils/100 WBC (Bld) 1.9 % Normal 0.0-6.0 [facility] Comment on above: Performed By: #### M G, GFR, ANEU, ADIFF, CBC, CMP, A1C, LIPID #### [address] [address] Lymphocyte, Absolute 1.0 10 3/mcL Normal 0.9-4.3 [facility] Comment on above: Performed By: #### M G, GFR, ANEU, ADIFF, CBC, CMP, A1C, LIPID #### [address] [address] Lymphocytes/100 WBC (Bld) 24.9 % Normal 20.0-40.0 [facility] Comment on above: Performed By: #### M G, GFR, ANEU, ADIFF, CBC, CMP, A1C, LIPID #### [address] [address] Monocyte, Absolute 0.3 10 3/mcL Normal 0.1-1.4 [facility] Comment on above: Performed By: #### M G, GFR, ANEU, ADIFF, CBC, CMP, A1C, LIPID #### [address] [address] Monocytes/100 WBC (Bld) 7.5 % Normal 2.0-13.0 [facility] Comment on above: Performed By: #### M G, GFR, ANEU, ADIFF, CBC, CMP, A1C, LIPID #### [address] [address] Neutrophils/100 WBC (Bld) 64.8 % Normal 50.0-75.0 [facility] Comment on above: Performed By: #### M G, GFR, ANEU, ADIFF, CBC, CMP, A1C, LIPID #### [address] [address] .GFRon 10-04-2024 Estimated Glomerular Filtration Rate 107 ml/min/1.73sqm Normal [facility] Comment on above: Result Comment: Stages [...] ANEU, ADIFF, CBC, CMP, A1C, LIPID #### [address] [address] .NEUABSon 10-04-2024 Neutrophil, Absolute 2.5 10 3/mcL Normal 2.3-8.1 [facility] Comment on above: Performed By: #### M G, GFR, ANEU, ADIFF, CBC, CMP, A1C, LIPID #### [address] [address] BMPon 10-04-2024 BUN/Creatinine Ratio 6.5 ratio Low 10.0-22.0 [facility] Comment on above: Performed By: #### M G, GFR, ANEU, ADIFF, CBC, CMP, A1C, LIPID #### [place] [address] Calcium [Mass/Vol] 8.5 mg/dL Low 8.7-10.4 [facility] Comment on above: Performed By: #### M G, GFR, ANEU, ADIFF, CBC, CMP, A1C, LIPID #### [address] [address] Chloride [Moles/Vol] 102 mmol/L Normal 98-110 [facility] Comment on above: Performed By: #### M G, GFR, ANEU, ADIFF, CBC, CMP, A1C, LIPID #### [address] [address] CO2 [Moles/Vol] 31 mmol/L Normal 22-32 [facility] Comment on above: Performed By: #### M G, GFR, ANEU, ADIFF, CBC, CMP, A1C, LIPID #### [address] [address] Creatinine [Mass/Vol] 0.77 mg/dL Normal 0.60-1.40 [facility] Comment on above: Result Comment: Test ing performed on [email or web address] analyzer using enzymatic creatinine methodology. Performed By: #### M G, GFR, ANEU, ADIFF, CBC, CMP, A1C, LIPID #### [address] [address] Electrolyte Balance 6.0 mEq/L Normal 4.0-15.0 [facility] Comment on above: Performed By: #### M G, GFR, ANEU, ADIFF, CBC, CMP, A1C, LIPID #### [address] [address] Glucose [Mass/Vol] 108 mg/dL Normal 70-110 [facility] Comment on above: Performed By: #### M G, GFR, ANEU, ADIFF, CBC, CMP, A1C, LIPID #### [address] [address] Potassium [Moles/Vol] 3.5 mmol/L Normal 3.5-5.0 [facility] Comment on above: Performed By: #### M G, GFR, ANEU, ADIFF, CBC, CMP, A1C, LIPID #### [address] [address] Sodium [Moles/Vol] 139 mmol/L Normal 136-145 [facility] Comment on above: Performed By: #### M G, GFR, ANEU, ADIFF, CBC, CMP, A1C, LIPID #### [place] [id number] Urea nitrogen [Mass/Vol] 5.0 mg/dL Low 8.0-22.0 [facility] Comment on above: Performed By: #### M G, GFR, ANEU, ADIFF, CBC, CMP, A1C, LIPID #### [address] [address] CBCon 10-04-2024 Erythrocyte distribution width (RBC) [Ratio] 17.1 % High 11.5-15.5 [facility] Comment on above: Performed By: #### M G, GFR, ANEU, ADIFF, CBC, CMP, A1C, LIPID #### [place] [id number] Hematocrit (Bld) [Volume fraction] 42.5 % Normal 40.0-52.0 [facility] Comment on above: Performed By: #### M G, GFR, ANEU, ADIFF, CBC, CMP, A1C, LIPID #### [place] [address] Hgb 13.8 G/dL Normal 13.0-17.5 [facility] Comment on above: Performed By: #### M G, GFR, ANEU, ADIFF, CBC, CMP, A1C, LIPID #### [place] [address] MCH (RBC) [Entitic mass] 28.4 pg Normal 27.0-33.0 [facility] Comment on above: Performed By: #### M G, GFR, ANEU, ADIFF, CBC, CMP, A1C, LIPID #### [place] [address] MCHC 32.6 G/dL Normal 32.0-36.0 [facility] Comment on above: Performed By: #### M G, GFR, ANEU, ADIFF, CBC, CMP, A1C, LIPID #### [place] [address] MCV (RBC) [Entitic vol] 87.2 fL Normal 81.0-100.0 [facility] Comment on above: Performed By: #### M G, GFR, ANEU, ADIFF, CBC, CMP, A1C, LIPID #### [place] [address] Platelet 120 10 3/mcL Low 150-450 [facility] Comment on above: Performed By: #### M G, GFR, ANEU, ADIFF, CBC, CMP, A1C, LIPID #### [place] [address] Platelet mean volume (Bld) [Entitic vol] 7.4 fL Normal 6.4-10.5 [facility] Comment on above: Performed By: #### M G, GFR, ANEU, ADIFF, CBC, CMP, A1C, LIPID #### [place] [address] RBC 4.87 10 6/mcL Normal 4.50-6.00 [facility] Comment on above: Performed By: #### M G, GFR, ANEU, ADIFF, CBC, CMP, A1C, LIPID #### [place] [address] [place] [address] WBC 3.8 10 3/mcL Low 4.5-10.8 [facility] Comment on above: Performed By: #### M G, GFR, ANEU, ADIFF, CBC, CMP, A1C, LIPID #### [place] [address] [place] [id number] LABORATORYOrdered By: Adenike Swain on 10-04-2024 Blood Glucose Testing Reason Routine (10/04/24 7:18 AM) [facility] Glucose [Mass/Vol] 100 mg/dL Normal 70 - 110 mg/dL [facility] LABORATORYOrdered By: SYSTEM SYSTEM on 10-04-2024 Basophils [...] above: Interpretive Data: T esting performed on [email or web address] analyzer using enzymatic creatinine methodology. Electrolyte Balance [...] 10-04-2024 Magnesium [Mass/Vol] 1.9 mg/dL Normal 1.6-2.4 [facility] Comment on above: Performed By: #### M G, GFR, ANEU, ADIFF, CBC, CMP, A1C, LIPID #### [address] [address] .Auto Diffon 10-03-2024 Basophil, Absolute 0.0 10 3/mcL Normal 0.0-0.3 [facility] Comment on above: Performed By: #### M G, GFR, ANEU, ADIFF, CBC, CMP, A1C, LIPID #### [address] [address] Basophils/100 WBC (Bld) 0.9 % Normal 0.0-2.5 [facility] Comment on above: Performed By: #### M G, GFR, ANEU, ADIFF, CBC, CMP, A1C, LIPID #### [address] [address] Eosinophil, Absolute 0.1 10 3/mcL Normal 0.0-0.7 [facility] Comment on above: Performed By: #### M G, GFR, ANEU, ADIFF, CBC, CMP, A1C, LIPID #### [address] [address] Eosinophils/100 WBC (Bld) 2.0 % Normal 0.0-6.0 [facility] Comment on above: Performed By: #### M G, GFR, ANEU, ADIFF, CBC, CMP, A1C, LIPID #### [address] [address] Lymphocyte, Absolute 0.9 10 3/mcL Normal 0.9-4.3 [facility] Comment on above: Performed By: #### M G, GFR, ANEU, ADIFF, CBC, CMP, A1C, LIPID #### [address] [address] Lymphocytes/100 WBC (Bld) 21.1 % Normal 20.0-40.0 [facility] Comment on above: Performed By: #### M G, GFR, ANEU, ADIFF, CBC, CMP, A1C, LIPID #### [address] [address] Monocyte, Absolute 0.3 10 3/mcL Normal 0.1-1.4 [facility] Comment on above: Performed By: #### M G, GFR, ANEU, ADIFF, CBC, CMP, A1C, LIPID #### [address] [address] Monocytes/100 WBC (Bld) 7.6 % Normal 2.0-13.0 [facility] Comment on above: Performed By: #### M G, GFR, ANEU, ADIFF, CBC, CMP, A1C, LIPID #### [address] [address] Neutrophils/100 WBC (Bld) 68.4 % Normal 50.0-75.0 [facility] Comment on above: Performed By: #### M G, GFR, ANEU, ADIFF, CBC, CMP, A1C, LIPID #### [address] [address] .GFRon 10-03-2024 Estimated Glomerular Filtration Rate 109 ml/min/1.73sqm Normal [facility] Comment on above: Result Comment: Stages [...] ANEU, ADIFF, CBC, CMP, A1C, LIPID #### [place] [address] .NEUABSon 10-03-2024 Neutrophil, Absolute 2.8 10 3/mcL Normal 2.3-8.1 [facility] Comment on above: Performed By: #### M G, GFR, ANEU, ADIFF, CBC, CMP, A1C, LIPID #### [place] [address] A1Con 10-03-2024 Glucose [Mass/Vol] 114 mg/dL Normal [facility] Comment on above: Result Comment: Zahida mated Average Glucose calculated by equation ((28.7xA1C)-46.7) Estimated average glucose (eAG) is a calculated value from Hemoglobin A1C and is manufacturers service representative of the average blood glucose level in the last 2-3 month period. Normal range: less than 114 mg/dL Performed By: #### M G, GFR, ANEU, ADIFF, CBC, CMP, A1C, LIPID #### [place] [address] HbA1c (Bld) [Mass fraction] 5.6 % Normal 4.0-6.0 [facility] Comment on above: Performed By: #### M G, GFR, ANEU, ADIFF, CBC, CMP, A1C, LIPID #### [place] [address] CBCon 10-03-2024 Erythrocyte distribution width (RBC) [Ratio] 16.6 % High 11.5-15.5 [facility] Comment on above: Performed By: #### M G, GFR, ANEU, ADIFF, CBC, CMP, A1C, LIPID #### [place] [id number] Hematocrit (Bld) [Volume fraction] 41.1 % Normal 40.0-52.0 [facility] Comment on above: Performed By: #### M G, GFR, ANEU, ADIFF, CBC, CMP, A1C, LIPID #### [place] [id number] Hgb 13.5 G/dL Normal 13.0-17.5 [facility] Comment on above: Performed By: #### M G, GFR, ANEU, ADIFF, CBC, CMP, A1C, LIPID #### [place] [id number] MCH (RBC) [Entitic mass] 28.7 pg Normal 27.0-33.0 [facility] Comment on above: Performed By: #### M G, GFR, ANEU, ADIFF, CBC, CMP, A1C, LIPID #### [place] [id number] MCHC 32.9 G/dL Normal 32.0-36.0 [facility] Comment on above: Performed By: #### M G, GFR, ANEU, ADIFF, CBC, CMP, A1C, LIPID #### [place] [id number] MCV (RBC) [Entitic vol] 87.2 fL Normal 81.0-100.0 [facility] Comment on above: Performed By: #### M G, GFR, ANEU, ADIFF, CBC, CMP, A1C, LIPID #### [place] [id number] Platelet 136 10 3/mcL Low 150-450 [facility] Comment on above: Performed By: #### M G, GFR, ANEU, ADIFF, CBC, CMP, A1C, LIPID #### [place] [id number] Platelet mean volume (Bld) [Entitic vol] 7.6 fL Normal 6.4-10.5 [facility] Comment on above: Performed By: #### M G, GFR, ANEU, ADIFF, CBC, CMP, A1C, LIPID #### [address] [address] RBC 4.72 10 6/mcL Normal 4.50-6.00 [facility] Comment on above: Performed By: #### M G, GFR, ANEU, ADIFF, CBC, CMP, A1C, LIPID #### [place] [id number] WBC 4.2 10 3/mcL Low 4.5-10.8 [facility] Comment on above: Performed By: #### M G, GFR, ANEU, ADIFF, CBC, CMP, A1C, LIPID #### [place] [id number] CMPon 10-03-2024 Albumin Level 3.3 G/dL Normal 3.2-4.8 [facility] Comment on above: Performed By: #### M G, GFR, ANEU, ADIFF, CBC, CMP, A1C, LIPID #### [place] [address] Albumin/Globulin [Mass ratio] 1.0 {ratio} Normal 0.9-1.6 [facility] Comment on above: Performed By: #### M G, GFR, ANEU, ADIFF, CBC, CMP, A1C, LIPID #### [place] [address] ALP [Catalytic activity/Vol] 56 U/L Normal 38-126 [facility] Comment on above: Performed By: #### M G, GFR, ANEU, ADIFF, CBC, CMP, A1C, LIPID #### [place] [address] ALT [Catalytic activity/Vol] 10 U/L Low 12-55 [facility] Comment on above: Performed By: #### M G, GFR, ANEU, ADIFF, CBC, CMP, A1C, LIPID #### [place] [id number] AST [Catalytic activity/Vol] 16 U/L Normal 8-34 [facility] Comment on above: Performed By: #### M G, GFR, ANEU, ADIFF, CBC, CMP, A1C, LIPID #### [place] [id number] Bili Total 0.60 mg/dL Normal 0.20-1.20 [facility] Comment on above: Result Comment: Use of this assay is not recommended for patients undergoing treatment with eltrombopag due to the potential for falsely elevated results. Performed By: #### M G, GFR, ANEU, ADIFF, CBC, CMP, A1C, LIPID #### [place] [id number] BUN/Creatinine Ratio 9.6 ratio Low 10.0-22.0 [facility] Comment on above: Performed By: #### M G, GFR, ANEU, ADIFF, CBC, CMP, A1C, LIPID #### [place] [id number] Calcium [Mass/Vol] 8.4 mg/dL Low 8.7-10.4 [facility] Comment on above: Performed By: #### M G, GFR, ANEU, ADIFF, CBC, CMP, A1C, LIPID #### [place] [id number] Chloride [Moles/Vol] 105 mmol/L Normal 98-110 [facility] Comment on above: Performed By: #### M G, GFR, ANEU, ADIFF, CBC, CMP, A1C, LIPID #### [place] [id number] CO2 [Moles/Vol] 31 mmol/L Normal 22-32 [facility] Comment on above: Performed By: #### M G, GFR, ANEU, ADIFF, CBC, CMP, A1C, LIPID #### [place] [id number] Creatinine [Mass/Vol] 0.73 mg/dL Normal 0.60-1.40 [facility] Comment on above: Result Comment: Test ing performed on [email or web address] analyzer using enzymatic creatinine methodology. Performed By: #### M G, GFR, ANEU, ADIFF, CBC, CMP, A1C, LIPID #### [place] [id number] Electrolyte Balance 1.0 mEq/L Low 4.0-15.0 [facility] Comment on above: Performed By: #### M G, GFR, ANEU, ADIFF, CBC, CMP, A1C, LIPID #### [address] [address] Globulin 3.2 G/dL Normal 2.5-4.2 [facility] Comment on above: Performed By: #### M G, GFR, ANEU, ADIFF, CBC, CMP, A1C, LIPID #### [address] [address] Glucose [Mass/Vol] 109 mg/dL Normal 70-110 [facility] Comment on above: Performed By: #### M G, GFR, ANEU, ADIFF, CBC, CMP, A1C, LIPID #### [address] [address] Potassium [Moles/Vol] 3.5 mmol/L Normal 3.5-5.0 [facility] Comment on above: Performed By: #### M G, GFR, ANEU, ADIFF, CBC, CMP, A1C, LIPID #### [address] [address] Sodium [Moles/Vol] 137 mmol/L Normal 136-145 [facility] Comment on above: Performed By: #### M G, GFR, ANEU, ADIFF, CBC, CMP, A1C, LIPID #### [address] [address] Total Protein 6.5 G/dL Normal 5.7-8.2 [facility] Comment on above: Performed By: #### M G, GFR, ANEU, ADIFF, CBC, CMP, A1C, LIPID #### [address] [address] Urea nitrogen [Mass/Vol] 7.0 mg/dL Low 8.0-22.0 [facility] Comment on above: Performed By: #### M G, GFR, ANEU, ADIFF, CBC, CMP, A1C, LIPID #### [address] [address] LABORATORYOrdered By: Jorge Wahl on 10-03-2024 Blood Glucose Testing Reason Routine (10/03/24 4:57 PM) [facility] Glucose [Mass/Vol] 81 mg/dL Normal 70 - 110 mg/dL [facility] LABORATORYOrdered By: Sophie Simental on 10-03-2024 Blood Glucose Testing Reason Routine (10/03/24 11:18 AM) [facility] Glucose [Mass/Vol] 99 mg/dL Normal 70 - 110 mg/dL [facility] LABORATORYOrdered By: SYSTEM SYSTEM on 10-03-2024 Albumin [...] above: Interpretive Data: T esting performed on [email or web address] analyzer using enzymatic creatinine methodology. Electrolyte Balance [...] calculated value from Hemoglobin A1C and is manufacturers service representative of the average blood glucose level [...] 10-03-2024 Cholesterol [Mass/Vol] 105 mg/dL Normal 50-199 [facility] Comment on above: Result Comment: Chol esterol Reference Interval: Less than 200 Desirable 200-239 Borderline high risk 240 and above High risk Performed By: #### M G, GFR, ANEU, ADIFF, CBC, CMP, A1C, LIPID #### [address] [address] Cholesterol in HDL [Mass/Vol] 17 mg/dL Low 40-59 [facility] Comment on above: Performed By: #### M G, GFR, ANEU, ADIFF, CBC, CMP, A1C, LIPID #### [address] [address] Cholesterol in LDL [Mass/Vol] 58 mg/dL Normal 0-129 [facility] Comment on above: Performed By: #### M G, GFR, ANEU, ADIFF, CBC, CMP, A1C, LIPID #### [address] [address] Triglyceride [Mass/Vol] 151 mg/dL High 3-149 [facility] Comment on above: Performed By: #### M G, GFR, ANEU, ADIFF, CBC, CMP, A1C, LIPID #### [address] [address] MGon 10-03-2024 Magnesium [Mass/Vol] 2.1 mg/dL Normal 1.6-2.4 [facility] Comment on above: Performed By: #### M G, GFR, ANEU, ADIFF, CBC, CMP, A1C, LIPID #### [address] [address] .Auto Diffon 10-02-2024 Basophil, Absolute 0.0 10 3/mcL Normal 0.0-0.3 [facility] Comment on above: Performed By: #### M G, GFR, ANEU, ADIFF, CBC, CMP, A1C, LIPID #### [address] [address] Basophils/100 WBC (Bld) 0.6 % Normal 0.0-2.5 [facility] Comment on above: Performed By: #### M G, GFR, ANEU, ADIFF, CBC, CMP, A1C, LIPID #### [address] [address] Eosinophil, Absolute 0.1 10 3/mcL Normal 0.0-0.7 [facility] Comment on above: Performed By: #### M G, GFR, ANEU, ADIFF, CBC, CMP, A1C, LIPID #### [address] [address] Eosinophils/100 WBC (Bld) 1.0 % Normal 0.0-6.0 [facility] Comment on above: Performed By: #### M G, GFR, ANEU, ADIFF, CBC, CMP, A1C, LIPID #### [address] [address] Lymphocyte, Absolute 1.2 10 3/mcL Normal 0.9-4.3 [facility] Comment on above: Performed By: #### M G, GFR, ANEU, ADIFF, CBC, CMP, A1C, LIPID #### [address] [address] Lymphocytes/100 WBC (Bld) 18.1 % Low 20.0-40.0 [facility] Comment on above: Performed By: #### M G, GFR, ANEU, ADIFF, CBC, CMP, A1C, LIPID #### [address] [address] Monocyte, Absolute 0.7 10 3/mcL Normal 0.1-1.4 [facility] Comment on above: Performed By: #### M G, GFR, ANEU, ADIFF, CBC, CMP, A1C, LIPID #### [address] [address] Monocytes/100 WBC (Bld) 10.0 % Normal 2.0-13.0 [facility] Comment on above: Performed By: #### M G, GFR, ANEU, ADIFF, CBC, CMP, A1C, LIPID #### [address] [address] Neutrophils/100 WBC (Bld) 70.3 % Normal 50.0-75.0 [facility] Comment on above: Performed By: #### M G, GFR, ANEU, ADIFF, CBC, CMP, A1C, LIPID #### [address] [address] Basophil, Absolute 0.1 10 3/mcL Normal 0.0-0.3 [facility] Comment on above: Performed By: #### A DIFF, MDW, PRO, TROPHS, GFR, ANEU, CBC, PBNP, BMP ####[place] [address] [place], [place] [address] Basophils/100 WBC (Bld) 0.8 % Normal 0.0-2.5 [facility] Comment on above: Performed By: #### A DIFF, MDW, PRO, TROPHS, GFR, ANEU, CBC, PBNP, BMP ####[place] [address] [place], [place] [address] Eosinophil, Absolute 0.1 10 3/mcL Normal 0.0-0.7 [facility] Comment on above: Performed By: #### A DIFF, MDW, PRO, TROPHS, GFR, ANEU, CBC, PBNP, BMP ####[facility] [place], [place] [address] Eosinophils/100 WBC (Bld) 1.2 % Normal 0.0-6.0 [facility] Comment on above: Performed By: #### A DIFF, MDW, PRO, TROPHS, GFR, ANEU, CBC, PBNP, BMP ####[facility] [place], [place] [address] Lymphocyte, Absolute 1.4 10 3/mcL Normal 0.9-4.3 [facility] Comment on above: Performed By: #### A DIFF, MDW, PRO, TROPHS, GFR, ANEU, CBC, PBNP, BMP ####[facility] [place], [place] [address] Lymphocytes/100 WBC (Bld) 13.3 % Low 20.0-40.0 [facility] Comment on above: Performed By: #### A DIFF, MDW, PRO, TROPHS, GFR, ANEU, CBC, PBNP, BMP ####[place] [place], [place] [address] Monocyte, Absolute 0.8 10 3/mcL Normal 0.1-1.4 [facility] Comment on above: Performed By: #### A DIFF, MDW, PRO, TROPHS, GFR, ANEU, CBC, PBNP, BMP ####[facility] [place], [place] [address] Monocytes/100 WBC (Bld) 7.6 % Normal 2.0-13.0 [facility] Comment on above: Performed By: #### A DIFF, MDW, PRO, TROPHS, GFR, ANEU, CBC, PBNP, BMP ####[address] [place], [place] [address] Neutrophils/100 WBC (Bld) 77.1 % High 50.0-75.0 [facility] Comment on above: Performed By: #### A DIFF, MDW, PRO, TROPHS, GFR, ANEU, CBC, PBNP, BMP ####[facility] [place], [place] [address] .GFRon 10-02-2024 Estimated Glomerular Filtration Rate 110 ml/min/1.73sqm Normal [facility] Comment on above: Result Comment: Stages [...] ANEU, ADIFF, CBC, CMP, A1C, LIPID #### [address] [address] Estimated Glomerular Filtration Rate 104 ml/min/1.73sqm Normal [facility] Comment on above: Result Comment: Stages [...] PRO, TROPHS, GFR, ANEU, CBC, PBNP, BMP ####[place] [address] [place], [place] [address] .MDWon 10-02-2024 Monocyte Distribution Width 19.51 Normal 0.00-20.00 [facility] Comment on above: Result Comment: For ED adult patients suspected of sepsis, MDW<=20.0 does not rule out sepsis or risk of sepsis Performed By: #### A DIFF, MDW, PRO, TROPHS, GFR, ANEU, CBC, PBNP, BMP ####[place] [address] [place], [place] [address] .NEUABSon 10-02-2024 Neutrophil, Absolute 4.7 10 3/mcL Normal 2.3-8.1 [facility] Comment on above: Performed By: #### M G, GFR, ANEU, ADIFF, CBC, CMP, A1C, LIPID #### [address] [address] Neutrophil, Absolute 8.4 10 3/mcL High 2.3-8.1 [facility] Comment on above: Performed By: #### A DIFF, MDW, PRO, TROPHS, GFR, ANEU, CBC, PBNP, BMP ####[facility] [place], [place] [address] APTTon 10-02-2024 aPTT Coag (Bld) [Time] 36.5 s High 25.0-35.0 [facility] Comment on above: Result Comment: For Heparin anticoagulation therapy, the recommended therapeutic range is: 54-77 seconds (APTT Correlation with Anti-Xa therapeutic range of 0.3-0.7 units/ml). PLEASE REFERENCE THE PHARMACY PROTOCOL FOR DOSING. Performed By: #### M G, GFR, ANEU, ADIFF, CBC, CMP, A1C, LIPID #### [address] [address] aPTT Coag (Bld) [Time] 29.3 s Normal 25.0-35.0 [facility] Comment on above: Result Comment: For Heparin anticoagulation therapy, the recommended therapeutic range is: 54-77 seconds (APTT Correlation with Anti-Xa therapeutic range of 0.3-0.7 units/ml). PLEASE REFERENCE THE PHARMACY PROTOCOL FOR DOSING. Performed By: #### M G, GFR, ANEU, ADIFF, CBC, CMP, A1C, LIPID #### [address] [address] BMPon 10-02-2024 BUN/Creatinine Ratio 14 ratio Normal 7-27 [facility] Comment on above: Performed By: #### A DIFF, MDW, PRO, TROPHS, GFR, ANEU, CBC, PBNP, BMP ####[facility] [place], [place] [address] Calcium [Mass/Vol] 8.9 mg/dL Normal 8.4-10.2 [facility] Comment on above: Performed By: #### A DIFF, MDW, PRO, TROPHS, GFR, ANEU, CBC, PBNP, BMP ####[place] [address] [place], [place] [address] Chloride [Moles/Vol] 101 mmol/L Normal 98-107 [facility] Comment on above: Performed By: #### A DIFF, MDW, PRO, TROPHS, GFR, ANEU, CBC, PBNP, BMP ####[place] [address] [place], [place] [address] CO2 [Moles/Vol] 31 mmol/L High 22-29 [facility] Comment on above: Performed By: #### A ELY LLAMAS, PRO, TROPHS, GFR, ANEU, CBC, PBNP, BMP ####[address] [place], [place] [address] Creatinine [Mass/Vol] 0.85 mg/dL Normal 0.67-1.17 [facility] Comment on above: Performed By: #### A ELY LLAMAS, PRO, TROPHS, GFR, ANEU, CBC, PBNP, BMP ####[address] [place], [place] [address] Electrolyte Balance 6.0 mEq/L Normal 4.0-15.0 [facility] Comment on above: Performed By: #### A ELY LLAMAS, PRO, TROPHS, GFR, ANEU, CBC, PBNP, BMP ####[id number] [address] Glucose [Mass/Vol] 157 mg/dL High 70-105 [facility] Comment on above: Performed By: #### A ELY LLAMAS, PRO, TROPHS, GFR, ANEU, CBC, PBNP, BMP ####[address] [place], [place] [address] Potassium [Moles/Vol] 3.1 mmol/L Low 3.5-5.1 [facility] Comment on above: Performed By: #### A ELY LLAMAS, PRO, TROPHS, GFR, ANEU, CBC, PBNP, BMP ####[address] [address] Sodium [Moles/Vol] 138 mmol/L Normal 136-145 [facility] Comment on above: Performed By: #### A ELY LLAMAS, PRO, TROPHS, GFR, ANEU, CBC, PBNP, BMP ####[address] [place], [place] [address] Urea nitrogen [Mass/Vol] 12 mg/dL Normal 7-18 [facility] Comment on above: Performed By: #### A ELY LLAMAS, PRO, TROPHS, GFR, ANEU, CBC, PBNP, BMP ####[place] [address] [place], [place] [address] CAIONon 10-02-2024 Calcium Ionized 1.09 mmol/L Low 1.12-1.32 [facility] Comment on above: Performed By: #### M G, GFR, ANEU, ADIFF, CBC, CMP, A1C, LIPID #### [address] [address] CBCon 10-02-2024 Erythrocyte distribution width (RBC) [Ratio] 16.6 % High 11.5-15.5 [facility] Comment on above: Performed By: #### M G, GFR, ANEU, ADIFF, CBC, CMP, A1C, LIPID #### [place] [address] Hematocrit (Bld) [Volume fraction] 47.4 % Normal 40.0-52.0 [facility] Comment on above: Performed By: #### M G, GFR, ANEU, ADIFF, CBC, CMP, A1C, LIPID #### [place] [id number] Hgb 15.6 G/dL Normal 13.0-17.5 [facility] Comment on above: Performed By: #### M G, GFR, ANEU, ADIFF, CBC, CMP, A1C, LIPID #### [place] [id number] MCH (RBC) [Entitic mass] 28.7 pg Normal 27.0-33.0 [facility] Comment on above: Performed By: #### M G, GFR, ANEU, ADIFF, CBC, CMP, A1C, LIPID #### [place] [id number] MCHC 32.9 G/dL Normal 32.0-36.0 [facility] Comment on above: Performed By: #### M G, GFR, ANEU, ADIFF, CBC, CMP, A1C, LIPID #### [place] [id number] MCV (RBC) [Entitic vol] 87.2 fL Normal 81.0-100.0 [facility] Comment on above: Performed By: #### M G, GFR, ANEU, ADIFF, CBC, CMP, A1C, LIPID #### [address] [address] Platelet 139 10 3/mcL Low 150-450 [facility] Comment on above: Performed By: #### M G, GFR, ANEU, ADIFF, CBC, CMP, A1C, LIPID #### [address] [address] Platelet mean volume (Bld) [Entitic vol] 7.7 fL Normal 6.4-10.5 [facility] Comment on above: Performed By: #### M G, GFR, ANEU, ADIFF, CBC, CMP, A1C, LIPID #### [address] [address] RBC 5.44 10 6/mcL Normal 4.50-6.00 [facility] Comment on above: Performed By: #### M G, GFR, ANEU, ADIFF, CBC, CMP, A1C, LIPID #### [address] [address] WBC 6.6 10 3/mcL Normal 4.5-10.8 [facility] Comment on above: Performed By: #### M G, GFR, ANEU, ADIFF, CBC, CMP, A1C, LIPID #### [address] [address] Erythrocyte distribution width (RBC) [Ratio] 16.6 % High 11.5-15.5 [facility] Comment on above: Performed By: #### A DIFFELY, PRO, TROPHS, GFR, ANEU, CBC, PBNP, BMP ####[address] [address] Hematocrit (Bld) [Volume fraction] 51.4 % Normal 40.0-52.0 [facility] [facility] Comment on above: Performed By: #### A FARHAD MDW, PRO, TROPHS, GFR, ANEU, CBC, PBNP, BMP ####[address] [address] [place], [place] [address] Hgb 17.1 G/dL Normal 13.0-17.5 [facility] Comment on above: Performed By: #### A DIFF, MDW, PRO, TROPHS, GFR, ANEU, CBC, PBNP, BMP ####[address] [address] [place] [phone] MCH (RBC) [Entitic mass] 28.9 pg Normal 27.0-33.0 [facility] Comment on above: Performed By: #### A DIFF, MDW, PRO, TROPHS, GFR, ANEU, CBC, PBNP, BMP ####[place] [address] [address] [place] [phone] MCHC 33.3 G/dL Normal 32.0-36.0 [facility] Comment on above: Performed By: #### A DIFF, MDW, PRO, TROPHS, GFR, ANEU, CBC, PBNP, BMP ####[place] [address] [address] [place] [phone] MCV (RBC) [Entitic vol] 86.7 fL Normal 81.0-100.0 [facility] Comment on above: Performed By: #### A DIFF, MDW, PRO, TROPHS, GFR, ANEU, CBC, PBNP, BMP ####[place] [address] Platelet 199 10 3/mcL Normal 150-450 [facility] Comment on above: Performed By: #### A DIFF, MDW, PRO, TROPHS, GFR, ANEU, CBC, PBNP, BMP ####[place] [address] Platelet mean volume (Bld) [Entitic vol] 7.3 fL Normal 6.4-10.5 [facility] Comment on above: Performed By: #### A DIFF, MDW, PRO, TROPHS, GFR, ANEU, CBC, PBNP, BMP ####[place] [address] RBC 5.93 10 6/mcL Normal 4.50-6.00 [facility] Comment on above: Performed By: #### A DIFF, MDW, PRO, TROPHS, GFR, ANEU, CBC, PBNP, BMP ####[address] [place], [place] [address] WBC 10.9 10 3/mcL High 4.5-10.8 [facility] Comment on above: Performed By: #### A FARHAD, ELY, PRO, TROPHS, GFR, ANEU, CBC, PBNP, BMP ####[address] [place], [place] [address] CMPon 10-02-2024 Albumin Level 3.2 G/dL Normal 3.2-4.8 [facility] Comment on above: Performed By: #### M G, GFR, ANEU, ADIFF, CBC, CMP, A1C, LIPID #### [address] [address] Albumin/Globulin [Mass ratio] 0.9 {ratio} Normal 0.9-1.6 [facility] Comment on above: Performed By: #### M G, GFR, ANEU, ADIFF, CBC, CMP, A1C, LIPID #### [address] [address] ALP [Catalytic activity/Vol] 60 U/L Normal 38-126 [facility] Comment on above: Performed By: #### M G, GFR, ANEU, ADIFF, CBC, CMP, A1C, LIPID #### [address] [address] ALT/SGPT <8 Low 12-55 [facility] Comment on above: Performed By: #### M G, GFR, ANEU, ADIFF, CBC, CMP, A1C, LIPID #### [address] [address] AST [Catalytic activity/Vol] 15 U/L Normal 8-34 [facility] Comment on above: Performed By: #### M G, GFR, ANEU, ADIFF, CBC, CMP, A1C, LIPID #### [address] [address] Bili Total 0.60 mg/dL Normal 0.20-1.20 [facility] Comment on above: Result Comment: Use of this assay is not recommended for patients undergoing treatment with eltrombopag due to the potential for falsely elevated results. Performed By: #### M G, GFR, ANEU, ADIFF, CBC, CMP, A1C, LIPID #### [address] [address] BUN/Creatinine Ratio 15.5 ratio Normal 10.0-22.0 [facility] Comment on above: Performed By: #### M G, GFR, ANEU, ADIFF, CBC, CMP, A1C, LIPID #### [address] [address] Calcium [Mass/Vol] 8.4 mg/dL Low 8.7-10.4 [facility] Comment on above: Performed By: #### M G, GFR, ANEU, ADIFF, CBC, CMP, A1C, LIPID #### [address] [address] Chloride [Moles/Vol] 102 mmol/L Normal 98-110 [facility] Comment on above: Performed By: #### M G, GFR, ANEU, ADIFF, CBC, CMP, A1C, LIPID #### [place] [phone] CO2 [Moles/Vol] 25 mmol/L Normal 22-32 [facility] Comment on above: Performed By: #### M G, GFR, ANEU, ADIFF, CBC, CMP, A1C, LIPID #### [place] [id number] Creatinine [Mass/Vol] 0.71 mg/dL Normal 0.60-1.40 [facility] Comment on above: Result Comment: Test ing performed on [email or web address] analyzer using enzymatic creatinine methodology. Performed By: #### M G, GFR, ANEU, ADIFF, CBC, CMP, A1C, LIPID #### [address] [address] Electrolyte Balance 12.0 mEq/L Normal 4.0-15.0 [facility] Comment on above: Performed By: #### M G, GFR, ANEU, ADIFF, CBC, CMP, A1C, LIPID #### [place] [phone] Globulin 3.5 G/dL Normal 2.5-4.2 [facility] Comment on above: Performed By: #### M G, GFR, ANEU, ADIFF, CBC, CMP, A1C, LIPID #### [address] [address] Glucose [Mass/Vol] 109 mg/dL Normal 70-110 [facility] Comment on above: Performed By: #### M G, GFR, ANEU, ADIFF, CBC, CMP, A1C, LIPID #### [place] [phone] Potassium [Moles/Vol] 3.5 mmol/L Normal 3.5-5.0 [facility] Comment on above: Performed By: #### M G, GFR, ANEU, ADIFF, CBC, CMP, A1C, LIPID #### [address] [address] Sodium [Moles/Vol] 139 mmol/L Normal 136-145 [facility] Comment on above: Performed By: #### M G, GFR, ANEU, ADIFF, CBC, CMP, A1C, LIPID #### [place] [id number] Total Protein 6.7 G/dL Normal 5.7-8.2 [facility] Comment on above: Performed By: #### M G, GFR, ANEU, ADIFF, CBC, CMP, A1C, LIPID #### [place] [address] Urea nitrogen [Mass/Vol] 11.0 mg/dL Normal 8.0-22.0 [facility] Comment on above: Performed By: #### M G, GFR, ANEU, ADIFF, CBC, CMP, A1C, LIPID #### [address] [address] LABORATORYOrdered By: SYSTEM SYSTEM on 10-02-2024 aPTT [...] above: Interpretive Data: T esting performed on [email or web address] analyzer using enzymatic creatinine methodology. Electrolyte Balance [...] Filtration Rate 110 ml/min/1.73sqm Invalid Interpretation Code [facility] Comment on above: Interpretive Data: Stages [...] 3.5 G/dL Normal 2.5 - 4.2 G/dL [facility] Glucose [Mass/Vol] 109 mg/dL Normal 70 - 110 mg/dL [facility] Hematocrit (Bld) [Volume fraction] 47.4 % Normal 40.0 - 52.0 % [facility] Hemoglobin (Bld) [Mass/Vol] 15.6 G/dL Normal 13.0 - 17.5 G/dL [facility] Lymphocytes (Bld) [#/Vol] 1.2 103/mcL Normal 0.9 - 4.3 10^3/mcL [facility] Lymphocytes/100 WBC (Bld) 18.1 % Low 20.0 - 40.0 % [facility] Magnesium [Mass/Vol] 1.8 mg/dL Normal 1.6 - 2 .4 mg/dL [facility] MCH (RBC) [Entitic mass] 28.7 pg [...] Comment on above: Interpretive Data: Baljinder linn [employer] (CHEST, 1992, 102:312S-25S) [...] ng/L Male: 0-54 ng/L Testing performed on AquaBling analyzer using direct chemiluminescent technology. TSH Qn [...] ng/L Male: 0-76 ng/L Testing performed on [employer] using a homogeneous sandwich chemiluminescent immunoassay based on LightUp technology. Basophils (Bld) [#/Vol] 0.1 103/mcL Normal [...] Comment on above: Interpretive Data: Baljinder linn [employer] (CHEST, 1991, 102:312S-25S) [...] ng/L Male: 0-76 ng/L Testing performed on [employer] using a homogeneous sandwich chemiluminescent immunoassay based on LightUp technology. Urea nitrogen [Mass/Vol] 12 mg/dL Normal [...] 10-02-2024 Magnesium [Mass/Vol] 1.8 mg/dL Normal 1.6-2.4 [facility] Comment on above: Performed By: #### M G, GFR, ANEU, ADIFF, CBC, CMP, A1C, LIPID #### [address] [address] Magnesium [Mass/Vol] 1.7 mg/dL Low 1.8-2.4 [facility] Comment on above: Performed By: #### Rody G ####[address] [place], [place] [address] PBNPon 10-02-2024 Natriuretic peptide B (Bld) [Mass/Vol] 2223 pg/mL High 0-900 [facility] Comment on above: Performed By: #### M G, GFR, ANEU, ADIFF, CBC, CMP, A1C, LIPID #### [address] [address] Natriuretic peptide B (Bld) [Mass/Vol] 973 pg/mL High 0-125 [facility] Comment on above: Result Comment: NT-p roBNP results of less than 300 pg/mL effectively rules out acute congestive heart failure with 99% negative predictive value. Performed By: #### A ELY LLAMAS, PRO, TROPHS, GFR, ANEU, CBC, PBNP, BMP ####[address] [place], [place] [address] PHOSon 10-02-2024 Phosphate [Mass/Vol] 2.2 mg/dL Low 2.4-5.1 [facility] Comment on above: Result Comment: No te - New Reference Range in effect 19 Performed By: #### M G, GFR, ANEU, ADIFF, CBC, CMP, A1C, LIPID #### [facility] [address] [place] [address] PROon 10-02-2024 INR Coag (PPP) [Relative time] 1.2 {INR} Normal [facility] Comment on above: Result Comment: [employer] (CHEST, 1991, 102:312S-25S) recommended therapeutic range for oral anticoagulant therapy is: LOW RISK: Prophylaxis of venous thrombosis INR: 2.0-3.0 Treatment of pulmonary embolism 2.0-3.0 Prevention of systemic embolism 2.0-3.0 HIGH RISK: Mechanical prosthetic valves 2.5-3.5 Performed By: #### M G, GFR, ANEU, ADIFF, CBC, CMP, A1C, LIPID #### [facility] [address] [place] [address] PT Coag (PPP) [Time] 13.4 s Normal 9.0-14.4 [facility] Comment on above: Result Comment: Effe ctive 12/11/07, Protime results may be affected by some antibiotics (i.e. Ciprofloxacin, Azithromycin, Bactrim) which may potentiate the action of oral anticoagulants, with further increases in Protime/INR. Performed By: #### M G, GFR, ANEU, ADIFF, CBC, CMP, A1C, LIPID #### [facility] [address] [place] [address] PT Coag (PPP) [Time] 13.5 s Normal 9.0-14.4 [facility] Comment on above: Performed By: #### A DIFF, MDW, PRO, TROPHS, GFR, ANEU, CBC, PBNP, BMP ####[facility] [place] [address] PT International Ratio 1.2 Normal [facility] Comment on above: Result Comment: [employer] (CHEST, 1991, 102:312S-25S) recommended therapeutic range for oral anticoagulant therapy is: LOW RISK: Prophylaxis of venous thrombosis INR: 2.0-3.0 Treatment of pulmonary embolism 2.0-3.0 Prevention of systemic embolism 2.0-3.0 HIGH RISK: Mechanical prosthetic valves 2.5-3.5 Performed By: #### A ELY LLAMAS, PRO, TROPHS, GFR, ANEU, CBC, PBNP, BMP ####[address] [place], [place] [address] [facility] High Sensitivity Troponin I 6 ng/L Normal 0-54 [facility] Comment on above: Result Comment: High Sensitive Troponin I Reference Ranges: Female: 0-34 ng/L Male: 0-54 ng/L Testing performed on AquaBling analyzer using direct chemiluminescent technology. Performed By: #### M G, GFR, ANEU, ADIFF, CBC, CMP, A1C, LIPID #### [address] [address] High Sensitivity Troponin I 9 ng/L Normal 0-76 [facility] Comment on above: Result Comment: High Sensitive Troponin I Reference Ranges: Female: 0-51 ng/L Male: 0-76 ng/L Testing performed on UpDown EXL using a homogeneous sandwich chemiluminescent immunoassay based on LightUp technology. Performed By: #### Baljinder RAMIREZ ####[address] [place], [place] [address] High Sensitivity Troponin I 9 ng/L Normal 0-76 [facility] Comment on above: Result Comment: High Sensitive Troponin I Reference Ranges: Female: 0-51 ng/L Male: 0-76 ng/L Testing performed on Dimension EXL using a homogeneous sandwich chemiluminescent immunoassay based on LightUp technology. Performed By: #### A ELY LLAMAS, , TROPHS, GFR, ANEU, CBC, PBNP, BMP ###[address] [place], [place] [address] TSHon 10-02-2024 TSH 1.923 mIU/mL Normal 0.550-4.780 [facility] Comment on above: Performed By: #### M G, GFR, ANEU, ADIFF, CBC, CMP, A1C, LIPID #### [address] [address] XR CHEST 1 VIEWon 10-02-2024 XR CHEST [...] Date: 10/02/2024 2:02:33 AM Ordering Provider: DELORES MUOR [facility] XR ANKLE MINIMUM 3 VIEWS [...] 08/29/2024 3:52:38 PM Ordering Provider: EDER FARFAN [facility] XR CHEST 2 VIEWSon XR [...] 08/29/2024 4:51:29 PM Ordering Provider: ISADORA CORREA [facility] .Auto Diffon 08-13-2024 Basophil, Absolute 0.0 10 3/mcL Normal 0.0-0.2 [facility] Comment on above: Performed By: #### A ERIC, GFR, CBC, CMP, PBNP, ADIFF, TROPHAlexys, W ####[facility] [place], [place] [address] Basophils/100 WBC (Bld) 0.7 % Normal 0.0-2.5 [facility] Comment on above: Performed By: #### A ERIC, GFR, CBC, CMP, PBNP, ADIFF, RAMANA, W ####[place] [place], [place] [address] Eosinophil, Absolute 0.1 10 3/mcL Normal 0.0-0.7 [facility] Comment on above: Performed By: #### A ERIC, GFR, CBC, CMP, PBNP, ADIFF, TROPHAlexys, W ####[address] [place], [place] [address] Eosinophils/100 WBC (Bld) 1.3 % Normal 0.0-7.0 [facility] Comment on above: Performed By: #### A ERIC, GFR, CBC, CMP, PBNP, ADRAMANA MARTÍNEZ MDW ####[address] [place], [place] [address] Lymphocyte, Absolute 0.8 10 3/mcL Low 0.9-4.3 [facility] Comment on above: Performed By: #### A ERIC, GFR, CBC, CMP, PBNP, RAMANA FOUNTAIN MDW ####[address] [place], [place] [address] Lymphocytes/100 WBC (Bld) 19.9 % Low 20.0-40.0 [facility] Comment on above: Performed By: #### A ERIC, GFR, CBC, CMP, PBNP, RAMANA FOUNTAIN MDW ####[place] [address] [place], [place] [address] Monocyte, Absolute 0.3 10 3/mcL Normal 0.1-1.4 [facility] Comment on above: Performed By: #### A ERIC, GFR, CBC, CMP, PBNP, RAMANA FOUNTAIN MDW ####[address] [place], [place] [address] Monocytes/100 WBC (Bld) 6.9 % Normal 2.0-13.0 [facility] Comment on above: Performed By: #### A ERIC, GFR, CBC, CMP, PBNP, RAMANA FOUNTAIN MDW ####[address] [place], [place] [address] Neutrophils/100 WBC (Bld) 71.2 % Normal 50.0-75.0 [facility] Comment on above: Performed By: #### A ERIC, GFR, CBC, CMP, PBNP, RAMANA FOUNTAIN MDW ####[address] [place], [place] [address] .GFRon 08-13-2024 Estimated Glomerular Filtration Rate 107 ml/min/1.73sqm Normal [facility] Comment on above: Result Comment: Stages [...] CMP, PBBAY, RAMANA FOUNTAIN MDW ####[address] [place], [place] [address] .MDWon 08-13-2024 Monocyte Distribution Width 19.39 Normal 0.00-20.00 [facility] Comment on above: Result Comment: For ED adult patients suspected of sepsis, MDW<=20.0 does not rule out sepsis or risk of sepsis Performed By: #### A ERIC, GFR, CBC, CMP, PBBAY, RAMANA FOUNTAIN MDW ####[address] [place], [place] [address] .NEUABSon 08-13-2024 Neutrophil, Absolute 2.9 10 3/mcL Normal 2.3-8.1 [facility] Comment on above: Performed By: #### A ERIC, GFR, CBC, CMP, PBNP, RAMANA FOUNTAIN MDW ####[address] [place], [place] [address] CBCon 08-13-2024 Erythrocyte distribution width (RBC) [Ratio] 17.1 % High 11.5-15.5 [facility] Comment on above: Performed By: #### A ERIC, GFR, CBC, CMP, PBNP, RAMANA FOUNTAIN MDW ####[address] [place], [place] [address] Hematocrit (Bld) [Volume fraction] 42.8 % Normal 40.0-52.0 [facility] Comment on above: Performed By: #### A ERIC, GFR, CBC, CMP, PBNP, RAMANA FOUNTAIN MDW ####[place] [place] [address] Hgb 14.0 G/dL Normal 13.0-17.5 [facility] Comment on above: Performed By: #### A ERIC, GFR, CBC, CMP, PBNP, RAMANA FOUNTAIN MDW ####[place] [address] [place] [address] MCH (RBC) [Entitic mass] 27.9 pg Normal 27.0-33.0 [facility] Comment on above: Performed By: #### A ERIC, GFR, CBC, CMP, PBNP, RAMANA FOUNTAIN MDW ####[address] [place] [address] MCHC 32.8 G/dL Normal 32.0-36.0 [facility] Comment on above: Performed By: #### A ERIC, GFR, CBC, CMP, PBNP, RAMANA FOUNTAIN MDW ####[address] [place] [address] MCV (RBC) [Entitic vol] 84.9 fL Normal 81.0-100.0 [facility] Comment on above: Performed By: #### A ERIC, GFR, CBC, CMP, PBBAY, RAMANA FOUNTAIN MDW ####[place] [address] [place] [id number] Platelet 137 10 3/mcL Low 150-450 [facility] Comment on above: Performed By: #### A ERIC, GFR, CBC, CMP, PBNP, RAMANA FOUNTAIN MDW ####[address] [place] [address] Platelet mean volume (Bld) [Entitic vol] 6.7 fL Normal 6.4-10.5 [facility] Comment on above: Performed By: #### A ERIC, GFR, CBC, CMP, PBNP, RAMANA FOUNTAIN MDW ####[address] [place] [address] RBC 5.04 10 6/mcL Normal 4.50-6.00 [facility] Comment on above: Performed By: #### A ERIC, GFR, CBC, CMP, PBNP, RAMANA FOUNTAIN MDW ####[address] [place], [place] [address] WBC 4.1 10 3/mcL Low 4.5-10.8 [facility] Comment on above: Performed By: #### A ERIC, GFR, CBC, CMP, PBNP, RAMANA FOUNTAIN MDW ####[address] [place], [place] [address] CMPon 08-13-2024 Albumin Level 3.3 G/dL Low 3.5-5.0 [facility] Comment on above: Performed By: #### A ERIC, GFR, CBC, CMP, PBBAY, RAMANA FOUNTAIN MDW ####[address] [place], [place] [address] Albumin/Globulin [Mass ratio] 0.8 {ratio} Low 1.1-2.5 [facility] Comment on above: Performed By: #### A ERIC, GFR, CBC, CMP, PBBAY, RAMANA FOUNTAIN MDW ####[address] [place], [place] [address] ALP [Catalytic activity/Vol] 76 U/L Normal 40-135 [facility] Comment on above: Performed By: #### A ERIC, GFR, CBC, CMP, PBNP, RAMANA FOUNTAIN MDW ####[address] [place], [place] [address] ALT [Catalytic activity/Vol] 10 U/L Low 16-63 [facility] Comment on above: Performed By: #### A ERIC, GFR, CBC, CMP, PBNP, RAMANA FOUNTAIN MDW ####[address] [place], [place] [address] AST [Catalytic activity/Vol] 14 U/L Normal 10-40 [facility] Comment on above: Performed By: #### A ERIC, GFR, CBC, CMP, PBNP, ADIFF, TROPHS, MDW ####[facility] [place], [place] [address] Bili Total 0.4 mg/dL Normal 0.2-1.0 [facility] Comment on above: Result Comment: Use of this assay is not recommended for patients undergoing treatment with eltrombopag due to the potential for falsely elevated results. Performed By: #### A ERIC, GFR, CBC, CMP, PBNP, RAMANA FOUNTAIN MDW ####[place] [address] [place], [place] [address] BUN/Creatinine Ratio 13 ratio Normal 7-27 [facility] Comment on above: Performed By: #### A ERIC, GFR, CBC, CMP, PBNP, RAMANA FOUNTAIN MDW ####[address] [place], [place] [address] Calcium [Mass/Vol] 8.6 mg/dL Normal 8.4-10.2 [facility] Comment on above: Performed By: #### A ERIC, GFR, CBC, CMP, PBNP, RAMANA FOUNTAIN MDW ####[address] [address] Chloride [Moles/Vol] 101 mmol/L Normal 98-107 [facility] Comment on above: Performed By: #### A ERIC, GFR, CBC, CMP, PBNP, RAMANA FOUNTAIN MDW ####[place] [address] [place], [place] [address] CO2 [Moles/Vol] 35 mmol/L High 22-29 [facility] Comment on above: Performed By: #### A ERIC, GFR, CBC, CMP, PBNP, RAMANA FOUNTAIN MDW ####[place] [address] [place], [place] [address] Creatinine [Mass/Vol] 0.78 mg/dL Normal 0.70-1.30 [facility] Comment on above: Result Comment: Test ing performed on Siemens Dimension EXL analyzer using a modified kinetic Ciera technique. Performed By: #### A ERIC, GFR, CBC, CMP, PBNP, ADMAURICIO, FAROOQS, MDW ####[address] [place], [place] [address] Electrolyte Balance 2.0 mEq/L Low 4.0-15.0 [facility] Comment on above: Performed By: #### A ERIC, GFR, CBC, CMP, PBNP, RAMANA FOUNTAIN MDW ####[address] [place], [place] [address] Globulin 3.9 G/dL High 1.5-3.8 [facility] Comment on above: Performed By: #### A ERIC, GFR, CBC, CMP, PBBAY, RAMANA FOUNTAIN MDW ####[address] [place], [place] [address] Glucose [Mass/Vol] 105 mg/dL Normal 70-105 [facility] Comment on above: Performed By: #### A ERIC, GFR, CBC, CMP, PBBAY, RAMANA FOUNTAIN MDW ####[address] [place], [place] [address] Potassium [Moles/Vol] 3.8 mmol/L Normal 3.5-5.1 [facility] Comment on above: Performed By: #### A ERIC, GFR, CBC, CMP, PBBAY, RAMANA FOUNTAIN MDW ####[address] [place], [place] [address] Sodium [Moles/Vol] 138 mmol/L Normal 136-145 [facility] Comment on above: Performed By: #### A ERIC, GFR, CBC, CMP, PBNP, RAMANA FOUNTAIN MDW ####[address] [place], [place] [address] Total Protein 7.2 G/dL Normal 6.4-8.2 [facility] Comment on above: Performed By: #### A ERIC, GFR, CBC, CMP, PBNP, RAMANA FOUNTAIN MDW ####[address] [place], [place] [address] Urea nitrogen [Mass/Vol] 10 mg/dL Normal 7-18 [facility] Comment on above: Performed By: #### A ERIC, GFR, CBC, CMP, PBNP, ADIFF, RAMANA, W ####[place] [address] CVFLURVon 08-13-2024 FLU A PCR Negative Normal Negative [facility] Comment on above: Performed By: #### C VFLURV ####[place] [address] FLU B PCR Negative Normal Negative [facility] Comment on above: Performed By: #### C VFLURV ####[place] [address] RSV PCR Negative Normal Negative [facility] Comment on above: Performed By: #### C VFLURV ####[place] [address] SARS-CoV-2 (COVID-19) RNA ROSE+probe Ql (Unsp spec) Negative Normal Negative [facility] Comment on above: Result Comment: Resu [...] positive results. Performed By: #### C VFLURV ####[place] [id number] PBNPon 08-13-2024 Natriuretic peptide B (Bld) [Mass/Vol] 456 pg/mL High 0-125 [facility] Comment on above: Result Comment: NT-p roBNP results of less than 300 pg/mL effectively rules out acute congestive heart failure with 99% negative predictive value. Performed By: #### A ERIC, GFR, CBC, CMP, PBNP, RAMANA FOUNTAIN MDW ####[address] [place], [place] [address] TROPHSon 08-13-2024 High Sensitivity Troponin I 8 ng/L Normal 0-76 [facility] Comment on above: Result Comment: High Sensitive Troponin I Reference Ranges: Female: 0-51 ng/L Male: 0-76 ng/L Testing performed on [employer] using a homogeneous sandwich chemiluminescent immunoassay based on [employer] technology. Performed By: #### A ERIC, GFR, CBC, CMP, PBNP, RAMANA FOUNTAIN MDW ####[address] [place], [place] [address] XR CHEST 1 VIEWon 08-13-2024 XR CHEST [...] 08/13/2024 11:55:14 AM Ordering Provider: WILNER JOE [facility] .GFRon 05-14-2024 GFR Non- 90 ml/min/1.73sqm [facility] Comment on above: Result Comment: [...] #### G FR, LIPID, A1C, CMP ####[id number] [place], [place] [address] GFR 109 ml/min/1.73sqm Normal [facility] Comment on above: Result Comment: GFR [...] #### G FR, LIPID, A1C, CMP ####[address] [place], [place] [address] A1Con 05-14-2024 Glucose [Mass/Vol] 120 mg/dL Normal [facility] Comment on above: Result Comment: Zahida mated Average Glucose calculated by equation ((28.7xA1C)-46.7) Estimated average glucose (eAG) is a calculated value from Hemoglobin A1C and is manufacturers service representative of the average blood glucose level in the last 2-3 month period. Normal range: less than 114 mg/dL Performed By: #### G FR, LIPID, A1C, CMP ####[address] [place], [place] [address] HbA1c (Bld) [Mass fraction] 5.8 % Normal 4.3-6.4 [facility] Comment on above: Performed By: #### G FR, LIPID, A1C, CMP ####[id number] [place] [id number] CMPon 05-14-2024 Albumin Level 3.4 G/dL Low 3.5-5.0 [facility] Comment on above: Performed By: #### G FR, LIPID, A1C, CMP ####Larry [address] [place] [id number] Albumin/Globulin [Mass ratio] 0.9 {ratio} Low 1.1-2.5 [facility] Comment on above: Performed By: #### G FR, LIPID, A1C, CMP ####Larry [address] [place] [address] ALP [Catalytic activity/Vol] 87 U/L Normal 40-135 [facility] Comment on above: Performed By: #### G FR, LIPID, A1C, CMP ####Larry [address] [address] ALT [Catalytic activity/Vol] 17 U/L Normal 16-63 [facility] Comment on above: Performed By: #### G FR, LIPID, A1C, CMP ####[place] [address] AST [Catalytic activity/Vol] 12 U/L Normal 10-40 [facility] Comment on above: Performed By: #### G FR, LIPID, A1C, CMP ####Larry [address] [place] [address] Bili Total 0.3 mg/dL Normal 0.2-1.0 [facility] Comment on above: Result Comment: Use of this assay is not recommended for patients undergoing treatment with eltrombopag due to the potential for falsely elevated results. Performed By: #### G FR, LIPID, A1C, CMP ####Larry [address] [place] [address] BUN/Creatinine Ratio 15 ratio Normal 7-27 [facility] Comment on above: Performed By: #### G FR, LIPID, A1C, CMP ####Larry [address] [place] [address] Calcium [Mass/Vol] 8.9 mg/dL Normal 8.4-10.2 [facility] Comment on above: Performed By: #### G FR, LIPID, A1C, CMP ####Larry [address] [place], [place] [address] Chloride [Moles/Vol] 101 mmol/L Normal 98-107 [facility] Comment on above: Performed By: #### G FR, LIPID, A1C, CMP ####Larry [address] [place], [place] [address] CO2 [Moles/Vol] 34 mmol/L High 22-29 [facility] Comment on above: Performed By: #### Abbey FR, LIPID, A1C, CMP ####Larry [address] [place], [place] [address] Creatinine [Mass/Vol] 0.89 mg/dL Normal 0.70-1.30 [facility] Comment on above: Result Comment: Test ing performed on Siemens Dimension EXL analyzer using a modified kinetic Ciera technique. Performed By: #### G FR, LIPID, A1C, CMP ####Larry [address] [place], [place] [address] Electrolyte Balance 5.0 mEq/L Normal 4.0-15.0 [facility] Comment on above: Performed By: #### Abbey FR, LIPID, A1C, CMP ####Larry [address] [place], [place] [address] Globulin 3.8 G/dL Normal [facility] Comment on above: Performed By: #### G FR, LIPID, A1C, CMP ####Larry [address] [place], [place] [address] Glucose [Mass/Vol] 99 mg/dL Normal 70-105 [facility] Comment on above: Performed By: #### G FR, LIPID, A1C, CMP ####Larry [address] [place], [place] [address] Potassium [Moles/Vol] 4.0 mmol/L Normal 3.5-5.1 [facility] Comment on above: Performed By: #### G FR, LIPID, A1C, CMP ####Larry [address] [place], [place] [address] Sodium [Moles/Vol] 140 mmol/L Normal 136-145 [facility] Comment on above: Performed By: #### G FR, LIPID, A1C, CMP ####[facility] [place], [place] [address] Total Protein 7.2 G/dL Normal 6.4-8.2 [facility] Comment on above: Performed By: #### G FR, LIPID, A1C, CMP ####Larry [address] [place], [place] [address] Urea nitrogen [Mass/Vol] 13 mg/dL Normal 7-18 [facility] Comment on above: Performed By: #### G FR, LIPID, A1C, CMP ####Larry [address] [place], [place] [address] LABORATORYOrdered By: SYSTEM SYSTEM on 05-14-2024 Albumin [...] calculated value from Hemoglobin A1C and is manufacturers service representative of the average blood glucose level [...] 05-14-2024 Cholesterol [Mass/Vol] 144 mg/dL Normal 0-200 [facility] Comment on above: Result Comment: Chol esterol Reference Interval: Less than 200 Desirable 200-239 Borderline high risk 240 and above High risk Performed By: #### G FR, LIPID, A1C, CMP ####Larry [address] [place], [place] [address] Cholesterol in HDL [Mass/Vol] 24 mg/dL Low 40-60 [facility] Comment on above: Performed By: #### G FR, LIPID, A1C, CMP ####Larry [address] [place], [place] [address] Cholesterol in LDL [Mass/Vol] 72 mg/dL Normal 0-130 [facility] Comment on above: Performed By: #### G FR, LIPID, A1C, CMP ####Larry [address] [place], [place] [address] Triglyceride [Mass/Vol] 242 mg/dL High 0-150 [facility] Comment on above: Result Comment: Trig lyceride Reference Interval: Less than 150 Normal 150-199 Borderline high risk 200-499 High risk 500 or higher Very high risk Performed By: #### G FR, LIPID, A1C, CMP ####Larry [address] [place], [place] [address] Final Surgical Pathology Rep [facility] 03-27-2024 Final Surgical Pathology Report . Pathology Reports Accession: Collected Date/Time: Received Date/Time: Pathologist: [id number] 03/25/2024 15:47 EDT 03/26/2024 07:38 EDT COREY WILBURN MD Final Surgical Pathology Report DIAGNOSIS: RIGHT ARM EXCISION: - GLOMANGIOMYOMA CLINICAL INFORMATION: SKIN LESION Procedure: EXCISION Preoperative diagnosis: SKIN LESION Postoperative diagnosis: SKIN LESION SPECIMEN: A RIGHT ARM GROSS DESCRIPTION: All parts labelled with patient name and [id number] Received in formalin labelled right arm excision Is a unoriented ellipse of skin measuring 1.5 x 0.4 and excised to depth of 1.2 cm. Excision margin inked black. Skin surface grossly unremarkable, located within the underlying soft tissue is a santillan firm well-circumscribed possible mass/lymph node measuring 0.6 x 0.6 x 0.6 cm. TS-2 Austin Somers, Pathologists' Plastic Molding Operator (ASCP) Performed by [facility] MICROSCOPIC DESCRIPTION: The microscopic examination is performed, except in the case of Gross Only. Electronically Signed by Pathology Report verified by [facility] COREY WILBURN Sign out Date: 03/27/2024 16:10 Performing Lab: [facility], [address] [place] [address] Pathology Dept Disclaimer If ancillary studies were utilized, the following Laboratory Developed Test (LDT) disclaimer will apply: Under CLIA requirements, [facility] Pathology Laboratory is qualified to perform high complexity testing. For all ancillary stains, positive and negative controls stain appropriately. Performance characteristics of immunohistochemical and chromogenic in-situ hybridization tests have been determined by [facility] Pathology Laboratory. These tests are used for clinical purposes, They should not be regarded as investigational or for research. Normal [facility] US SOFT TISSUE MASS OF RT [...] 11:09:23 AM Ordering Provider: ISADORA CORREA Normal [facility] TSHon 02-15-2024 TSH Qn 1.65 m[IU]/L Normal 0.36-3.74 [facility] Comment on above: Performed By: #### T ####[facility] [place] [address]167 .GFRon 02-12-2024 GFR 95 ml/min/1.73sqm Normal [facility] Comment on above: Result Comment: GFR [...] P SA, CMP, GFR, LIPID, A1C #### [address] [address] GFR Non- 78 ml/min/1.73sqm Normal [facility] Comment on above: Result Comment: GFR [...] P SA, CMP, GFR, LIPID, A1C #### [address] [address] A1Con 02-12-2024 Glucose [Mass/Vol] 131 mg/dL Normal [facility] Comment on above: Result Comment: Zahida mated Average Glucose calculated by equation ((28.7xA1C)-46.7) Estimated average glucose (eAG) is a calculated value from Hemoglobin A1C and is manufacturers service representative of the average blood glucose level in the last 2-3 month period. Normal range: less than 114 mg/dL Performed By: #### P SA, CMP, GFR, LIPID, A1C #### [address] [address] HbA1c (Bld) [Mass fraction] 6.2 % Normal 4.3-6.4 [facility] Comment on above: Performed By: #### P SA, CMP, GFR, LIPID, A1C #### [address] [address] CMPon 02-12-2024 Albumin Level 3.3 G/dL Low 3.5-5.0 [facility] Comment on above: Performed By: #### P SA, CMP, GFR, LIPID, A1C #### [address] [address] Albumin/Globulin [Mass ratio] 0.9 {ratio} Low 1.1-2.5 [facility] Comment on above: Performed By: #### P SA, CMP, GFR, LIPID, A1C #### [address] [address] ALP [Catalytic activity/Vol] 74 U/L Normal 40-135 [facility] Comment on above: Performed By: #### P SA, CMP, GFR, LIPID, A1C #### [address] [address] ALT [Catalytic activity/Vol] 20 U/L Normal 16-63 [facility] Comment on above: Performed By: #### P SA, CMP, GFR, LIPID, A1C #### [address] [address] AST [Catalytic activity/Vol] 13 U/L Normal 10-40 [facility] Comment on above: Performed By: #### P SA, CMP, GFR, LIPID, A1C #### [address] [address] Bili Total 0.5 mg/dL Normal 0.2-1.0 [facility] Comment on above: Result Comment: Use of this assay is not recommended for patients undergoing treatment with eltrombopag due to the potential for falsely elevated results. Performed By: #### P SA, CMP, GFR, LIPID, A1C #### [address] [address] BUN/Creatinine Ratio 6 ratio Low 7-27 [facility] Comment on above: Performed By: #### P SA, CMP, GFR, LIPID, A1C #### [address] [address] Calcium [Mass/Vol] 8.5 mg/dL Normal 8.4-10.2 [facility] Comment on above: Performed By: #### P SA, CMP, GFR, LIPID, A1C #### [address] [address] Chloride [Moles/Vol] 100 mmol/L Normal 98-107 [facility] Comment on above: Performed By: #### P SA, CMP, GFR, LIPID, A1C #### [place] [address] CO2 [Moles/Vol] 34 mmol/L High 22-29 [facility] Comment on above: Performed By: #### P SA, CMP, GFR, LIPID, A1C #### [place] [id number] Creatinine [Mass/Vol] 1.00 mg/dL Normal 0.70-1.30 [facility] Comment on above: Result Comment: Test ing performed on Siemens Dimension EXL analyzer using a modified kinetic Ciera technique. Performed By: #### P SA, CMP, GFR, LIPID, A1C #### [address] [address] Electrolyte Balance 4.0 mEq/L Normal 4.0-15.0 [facility] Comment on above: Performed By: #### P SA, CMP, GFR, LIPID, A1C #### [address] [address] Globulin 3.8 G/dL Normal [facility] Comment on above: Performed By: #### P SA, CMP, GFR, LIPID, A1C #### [address] [address] Glucose [Mass/Vol] 80 mg/dL Normal 70-105 [facility] Comment on above: Performed By: #### P SA, CMP, GFR, LIPID, A1C #### Larry [place] [address] [place], [place] [address] Potassium [Moles/Vol] 4.3 mmol/L Normal 3.5-5.1 [facility] Comment on above: Performed By: #### P SA, CMP, GFR, LIPID, A1C #### [place] [address] [place], [place] [address] Sodium [Moles/Vol] 138 mmol/L Normal 136-145 [facility] Comment on above: Performed By: #### P SA, CMP, GFR, LIPID, A1C #### [address] [address] Total Protein 7.1 G/dL Normal 6.4-8.2 [facility] Comment on above: Performed By: #### P SA, CMP, GFR, LIPID, A1C #### [address] [address] Urea nitrogen [Mass/Vol] 6 mg/dL Low 7-18 [facility] Comment on above: Performed By: #### P SA, CMP, GFR, LIPID, A1C #### [address] [address] LABORATORYOrdered By: SYSTEM SYSTEM on 02-12-2024 Albumin [...] calculated value from Hemoglobin A1C and is manufacturers service representative of the average blood glucose level [...] 02-12-2024 Cholesterol [Mass/Vol] 117 mg/dL Normal 0-200 [facility] Comment on above: Result Comment: Chol esterol Reference Interval: Less than 200 Desirable 200-239 Borderline high risk 240 and above High risk Performed By: #### P SA, CMP, GFR, LIPID, A1C #### [place] [address] Cholesterol in HDL [Mass/Vol] 25 mg/dL Low 40-60 [facility] Comment on above: Performed By: #### P SA, CMP, GFR, LIPID, A1C #### [place] [address] Cholesterol in LDL [Mass/Vol] 53 mg/dL Normal 0-130 [facility] Comment on above: Performed By: #### P SA, CMP, GFR, LIPID, A1C #### [place] [address] Triglyceride [Mass/Vol] 196 mg/dL High 0-150 [facility] Comment on above: Result Comment: Trig lyceride Reference Interval: Less than 150 Normal 150-199 Borderline high risk 200-499 High risk 500 or higher Very high risk Performed By: #### P SA, CMP, GFR, LIPID, A1C #### [place] [phone] PSAon 02-12-2024 Prostate Specific Antigen 0.25 ng/mL Normal 0.00-4.00 [facility] Comment on above: Performed By: #### P SA, CMP, GFR, LIPID, A1C #### [place] [address] .Auto Diffon 02-01-2024 Basophil, Absolute 0.1 10 3/mcL Normal 0.0-0.3 [facility] ([place]) Comment on above: Performed By: #### A DIFF, TROPHS, GFR, BMP, MDW, CBC, PBNP, ANEU #### [place] [address] Basophils/100 WBC (Bld) 0.8 % Normal 0.0-2.5 [facility] ([place]) Comment on above: Performed By: #### A DIFF, TROPHS, GFR, BMP, MDW, CBC, PBNP, ANEU #### Larry [place] [address] [place], [place] [address] Eosinophil, Absolute 0.1 10 3/mcL Normal 0.0-0.7 [facility] ([place]) Comment on above: Performed By: #### A DIFF, TROPHS, GFR, BMP, MDW, CBC, PBNP, ANEU #### [address] [address] Eosinophils/100 WBC (Bld) 1.2 % Normal 0.0-6.0 [facility] ([place]) Comment on above: Performed By: #### A DIFF, TROPHS, GFR, BMP, MDW, CBC, PBNP, ANEU #### [address] [address] Lymphocyte, Absolute 1.4 10 3/mcL Normal 0.9-4.3 [facility] ([place]) Comment on above: Performed By: #### A DIFF, TROPHS, GFR, BMP, MDW, CBC, PBNP, ANEU #### [address] [address] Lymphocytes/100 WBC (Bld) 19.9 % Low 20.0-40.0 [facility] ([place]) Comment on above: Performed By: #### A DIFF, TROPHS, GFR, BMP, MDW, CBC, PBNP, ANEU #### [address] [address] Monocyte, Absolute 0.7 10 3/mcL Normal 0.1-1.4 [facility] ([place]) Comment on above: Performed By: #### A DIFF, TROPHS, GFR, BMP, MDW, CBC, PBNP, ANEU #### [address] [address] Monocytes/100 WBC (Bld) 9.4 % Normal 2.0-13.0 [facility] ([place]) Comment on above: Performed By: #### A DIFF, TROPHS, GFR, BMP, MDW, CBC, PBNP, ANEU #### [address] [address] Neutrophils/100 WBC (Bld) 68.7 % Normal 50.0-75.0 [facility] ([place]) Comment on above: Performed By: #### A DIFF, TROPHS, GFR, BMP, MDW, CBC, PBNP, ANEU #### [address] [address] .GFRon 02-01-2024 GFR >60 Normal [facility] ([place]) Comment on above: Result Comment: GFR Population [...] GFR, BMP, MDW, CBC, PBNP, ANEU #### [address] [address] GFR Non- >60 Normal [facility] ([place]) Comment on above: Result Comment: GFR Population [...] GFR, BMP, MDW, CBC, PBNP, ANEU #### [address] [address] .NEUABSon 02-01-2024 Neutrophil, Absolute 4.8 10 3/mcL Normal 2.3-8.1 [facility] ([place]) Comment on above: Performed By: #### A DIFF, TROPHS, GFR, BMP, MDW, CBC, PBNP, ANEU #### [address] [address] APTTon 02-01-2024 aPTT Coag (Bld) [Time] 47.1 s High 25.0-35.0 [facility] ([place]) Comment on above: Result Comment: For Heparin anticoagulation therapy, the recommended therapeutic range is: 54-77 seconds (APTT Correlation with Anti-Xa therapeutic range of 0.3-0.7 units/ml). PLEASE REFERENCE THE PHARMACY PROTOCOL FOR DOSING. Performed By: #### A DIFF, TROPHS, GFR, BMP, MDW, CBC, PBNP, ANEU #### [address] [address] aPTT Coag (Bld) [Time] 46.1 s High 25.0-35.0 [facility] ([place]) Comment on above: Result Comment: For Heparin anticoagulation therapy, the recommended therapeutic range is: 54-77 seconds (APTT Correlation with Anti-Xa therapeutic range of 0.3-0.7 units/ml). PLEASE REFERENCE THE PHARMACY PROTOCOL FOR DOSING. Performed By: #### A DIFF, TROPHS, GFR, BMP, MDW, CBC, PBNP, ANEU #### [address] [address] BMPon 02-01-2024 BUN/Creatinine Ratio 14.8 ratio Normal 10.0-22.0 [facility] ([place]) Comment on above: Performed By: #### A DIFF, TROPHS, GFR, BMP, MDW, CBC, PBNP, ANEU #### [address] [address] Calcium [Mass/Vol] 8.8 mg/dL Normal 8.7-10.4 [facility] ([place]) Comment on above: Performed By: #### A DIFF, TROPHS, GFR, BMP, MDW, CBC, PBNP, ANEU #### [address] [address] Chloride [Moles/Vol] 100 mmol/L Normal 98-110 [facility] ([place]) Comment on above: Performed By: #### A DIFF, TROPHS, GFR, BMP, MDW, CBC, PBNP, ANEU #### [address] [address] CO2 [Moles/Vol] 32 mmol/L Normal 22-32 [facility] ([place]) Comment on above: Performed By: #### A DIFF, TROPHS, GFR, BMP, MDW, CBC, PBNP, ANEU #### [address] [address] Creatinine [Mass/Vol] 1.15 mg/dL Normal 0.60-1.40 [facility] ([place]) Comment on above: Result Comment: Test ing performed on [email or web address] analyzer using enzymatic creatinine methodology. Performed By: #### A DIFF, TROPHS, GFR, BMP, MDW, CBC, PBNP, ANEU #### [address] [address] Electrolyte Balance 5.0 mEq/L Normal 4.0-15.0 [facility] ([place]) Comment on above: Performed By: #### A DIFF, TROPHS, GFR, BMP, MDW, CBC, PBNP, ANEU #### [address] [address] Glucose [Mass/Vol] 124 mg/dL High 70-110 [facility] ([place]) Comment on above: Performed By: #### A DIFF, TROPHS, GFR, BMP, MDW, CBC, PBNP, ANEU #### [address] [address] Potassium [Moles/Vol] 3.4 mmol/L Low 3.5-5.0 [facility] ([place]) Comment on above: Performed By: #### A DIFF, TROPHS, GFR, BMP, MDW, CBC, PBNP, ANEU #### [address] [address] Sodium [Moles/Vol] 137 mmol/L Normal 136-145 [facility] ([place]) Comment on above: Performed By: #### A DIFF, TROPHS, GFR, BMP, MDW, CBC, PBNP, ANEU #### [address] [address] Urea nitrogen [Mass/Vol] 17.0 mg/dL Normal 8.0-22.0 [facility] ([place]) Comment on above: Performed By: #### A DIFF, TROPHS, GFR, BMP, MDW, CBC, PBNP, ANEU #### [address] [address] CBCon 02-01-2024 Erythrocyte distribution width (RBC) [Ratio] 16.2 % High 11.5-15.5 [facility] ([place]) Comment on above: Performed By: #### A DIFF, TROPHS, GFR, BMP, MDW, CBC, PBNP, ANEU #### [place] [id number] Hematocrit (Bld) [Volume fraction] 40.5 % Normal 40.0-52.0 [facility] ([place]) Comment on above: Performed By: #### A DIFF, TROPHS, GFR, BMP, MDW, CBC, PBNP, ANEU #### [address] [address] Hgb 13.0 G/dL Normal 13.0-17.5 [facility] ([place]) Comment on above: Performed By: #### A DIFF, TROPHS, GFR, BMP, MDW, CBC, PBNP, ANEU #### [address] [address] MCH (RBC) [Entitic mass] 26.0 pg Low 27.0-33.0 [facility] ([place]) Comment on above: Performed By: #### A DIFF, TROPHS, GFR, BMP, MDW, CBC, PBNP, ANEU #### [address] [address] MCHC 32.2 G/dL Normal 32.0-36.0 [facility] ([place]) Comment on above: Performed By: #### A DIFF, TROPHS, GFR, BMP, MDW, CBC, PBNP, ANEU #### [address] [address] MCV (RBC) [Entitic vol] 80.6 fL Low 81.0-100.0 [facility] ([place]) Comment on above: Performed By: #### A DIFF, TROPHS, GFR, BMP, MDW, CBC, PBNP, ANEU #### [address] [address] Platelet 161 10 3/mcL Normal 150-450 [facility] ([place]) Comment on above: Performed By: #### A DIFF, TROPHS, GFR, BMP, MDW, CBC, PBNP, ANEU #### [address] [address] Platelet mean volume (Bld) [Entitic vol] 6.8 fL Normal 6.4-10.5 [facility] ([place]) Comment on above: Performed By: #### A DIFF, TROPHS, GFR, BMP, MDW, CBC, PBNP, ANEU #### [address] [address] RBC 5.02 10 6/mcL Normal 4.50-6.00 [facility] ([place]) Comment on above: Performed By: #### A DIFF, TROPHS, GFR, BMP, MDW, CBC, PBNP, ANEU #### [address] [address] WBC 6.9 10 3/mcL Normal 4.5-10.8 [facility] ([place]) Comment on above: Performed By: #### A DIFF, TROPHS, GFR, BMP, MDW, CBC, PBNP, ANEU #### [address] [address] LABORATORYOrdered By: SYSTEM SYSTEM on 02-01-2024 aPTT [...] above: Interpretive Data: T esting performed on [email or web address] analyzer using enzymatic creatinine methodology. Electrolyte Balance [...] [Mass/Vol] 2.2 mg/dL Normal 1.6-2.4 [facility] ([place]) Comment on above: Performed By: #### A DIFF, TROPHS, GFR, BMP, MDW, CBC, PBNP, ANEU #### [address] [address] .Auto Diffon 01-31-2024 Basophil, Absolute 0.1 10 3/mcL Normal 0.0-0.3 [facility] ([place]) Comment on above: Performed By: #### A DIFF, TROPHS, GFR, BMP, MDW, CBC, PBNP, ANEU #### Larry [address] [address] Basophils/100 WBC (Bld) 1.0 % Normal 0.0-2.5 [facility] ([place]) Comment on above: Performed By: #### A DIFF, TROPHS, GFR, BMP, MDW, CBC, PBNP, ANEU #### [address] [address] Eosinophil, Absolute 0.1 10 3/mcL Normal 0.0-0.7 [facility] ([place]) Comment on above: Performed By: #### A DIFF, TROPHS, GFR, BMP, MDW, CBC, PBNP, ANEU #### [address] [address] Eosinophils/100 WBC (Bld) 1.1 % Normal 0.0-6.0 [facility] ([place]) Comment on above: Performed By: #### A DIFF, TROPHS, GFR, BMP, MDW, CBC, PBNP, ANEU #### [address] [address] Lymphocyte, Absolute 3.0 10 3/mcL Normal 0.9-4.3 [facility] ([place]) Comment on above: Performed By: #### A DIFF, TROPHS, GFR, BMP, MDW, CBC, PBNP, ANEU #### [address] [address] Lymphocytes/100 WBC (Bld) 22.7 % Normal 20.0-40.0 [facility] ([place]) Comment on above: Performed By: #### A DIFF, TROPHS, GFR, BMP, MDW, CBC, PBNP, ANEU #### [address] [address] Monocyte, Absolute 1.4 10 3/mcL Normal 0.1-1.4 [facility] ([place]) Comment on above: Performed By: #### A DIFF, TROPHS, GFR, BMP, MDW, CBC, PBNP, ANEU #### [address] [address] Monocytes/100 WBC (Bld) 11.0 % Normal 2.0-13.0 [facility] ([place]) Comment on above: Performed By: #### A DIFF, TROPHS, GFR, BMP, MDW, CBC, PBNP, ANEU #### [address] [address] Neutrophils/100 WBC (Bld) 64.2 % Normal 50.0-75.0 [facility] ([place]) Comment on above: Performed By: #### A DIFF, TROPHS, GFR, BMP, MDW, CBC, PBNP, ANEU #### [address] [address] .GFRon 01-31-2024 GFR 46 ml/min/1.73sqm Normal [facility] ([place]) Comment on above: Result Comment: GFR Population [...] GFR, BMP, MDW, CBC, PBNP, ANEU #### [address] [address] GFR Non- 38 ml/min/1.73sqm Normal [facility] ([place]) Comment on above: Result Comment: GFR Population [...] GFR, BMP, MDW, CBC, PBNP, ANEU #### [address] [address] .NEUABSon 01-31-2024 Neutrophil, Absolute 8.5 10 3/mcL High 2.3-8.1 [facility] ([place]) Comment on above: Performed By: #### A DIFF, TROPHS, GFR, BMP, MDW, CBC, PBNP, ANEU #### [address] [address] APTTon 01-31-2024 aPTT Coag (Bld) [Time] 34.5 s Normal 25.0-35.0 [facility] ([place]) Comment on above: Result Comment: For Heparin anticoagulation therapy, the recommended therapeutic range is: 54-77 seconds (APTT Correlation with Anti-Xa therapeutic range of 0.3-0.7 units/ml). PLEASE REFERENCE THE PHARMACY PROTOCOL FOR DOSING. Performed By: #### A DIFF, TROPHS, GFR, BMP, MDW, CBC, PBNP, ANEU #### [address] [address] aPTT Coag (Bld) [Time] 33.9 s Normal 25.0-35.0 [facility] ([place]) Comment on above: Result Comment: For Heparin anticoagulation therapy, the recommended therapeutic range is: 54-77 seconds (APTT Correlation with Anti-Xa therapeutic range of 0.3-0.7 units/ml). PLEASE REFERENCE THE PHARMACY PROTOCOL FOR DOSING. Performed By: #### A DIFF, TROPHS, GFR, BMP, MDW, CBC, PBNP, ANEU #### [address] [address] aPTT Coag (Bld) [Time] 26.2 s Normal 25.0-35.0 [facility] ([place] Comment on above: Result Comment: For Heparin anticoagulation therapy, the recommended therapeutic range is: 54-77 seconds (APTT Correlation with Anti-Xa therapeutic range of 0.3-0.7 units/ml). PLEASE REFERENCE THE PHARMACY PROTOCOL FOR DOSING. Performed By: #### A DIFF, TROPHS, GFR, BMP, MDW, CBC, PBNP, ANEU #### [address] [address] CAIONon 01-31-2024 Calcium Ionized 1.07 mmol/L Low 1.12-1.32 [facility] ([place]) Comment on above: Performed By: #### T ROPHS, CMP, CAION, LAC, CBC, ADIFF, GFR, PHOS, MG, ANEU #### [place] [address] CBCon 01-31-2024 Erythrocyte distribution width (RBC) [Ratio] 16.3 % High 11.5-15.5 [facility] ([place]) Comment on above: Performed By: #### A DIFF, TROPHS, GFR, BMP, MDW, CBC, PBNP, ANEU #### [address] [address] Hematocrit (Bld) [Volume fraction] 42.8 % Normal 40.0-52.0 [facility] ([place]) Comment on above: Performed By: #### A DIFF, TROPHS, GFR, BMP, MDW, CBC, PBNP, ANEU #### [address] [address] Hgb 14.0 G/dL Normal 13.0-17.5 [facility] ([place] Comment on above: Performed By: #### A DIFF, TROPHS, GFR, BMP, MDW, CBC, PBNP, ANEU #### [address] [address] MCH (RBC) [Entitic mass] 25.9 pg Low 27.0-33.0 [facility] ([place] Comment on above: Performed By: #### A DIFF, TROPHS, GFR, BMP, MDW, CBC, PBNP, ANEU #### [address] [address] MCHC 32.6 G/dL Normal 32.0-36.0 [facility] ([place] Comment on above: Performed By: #### A DIFF, TROPHS, GFR, BMP, MDW, CBC, PBNP, ANEU #### [address] [address] MCV (RBC) [Entitic vol] 79.5 fL Low 81.0-100.0 [facility] ([place] Comment on above: Performed By: #### A DIFF, TROPHS, GFR, BMP, MDW, CBC, PBNP, ANEU #### [address] [address] Platelet 270 10 3/mcL Normal 150-450 [facility] ([place]) Comment on above: Performed By: #### A DIFF, TROPHS, GFR, BMP, MDW, CBC, PBNP, ANEU #### [address] [address] Platelet mean volume (Bld) [Entitic vol] 7.0 fL Normal 6.4-10.5 [facility] ([place] Comment on above: Performed By: #### A DIFF, TROPHS, GFR, BMP, MDW, CBC, PBNP, ANEU #### [address] [address] RBC 5.39 10 6/mcL Normal 4.50-6.00 [facility] ([place] Comment on above: Performed By: #### A DIFF, TROPHS, GFR, BMP, MDW, CBC, PBNP, ANEU #### [address] [address] WBC 13.2 10 3/mcL High 4.5-10.8 [facility] ([place]) Comment on above: Performed By: #### A DIFF, TROPHS, GFR, BMP, MDW, CBC, PBNP, ANEU #### [address] [address] CMPon 01-31-2024 Albumin Level 3.0 G/dL Low 3.2-4.8 [facility] ([place] Comment on above: Performed By: #### A DIFF, TROPHS, GFR, BMP, MDW, CBC, PBNP, ANEU #### [address] [address] Albumin/Globulin [Mass ratio] 0.8 {ratio} Low 0.9-1.6 [facility] ([place]) Comment on above: Performed By: #### A DIFF, TROPHS, GFR, BMP, MDW, CBC, PBNP, ANEU #### [place] [id number] ALP [Catalytic activity/Vol] 77 U/L Normal 38-126 [facility] ([place] Comment on above: Performed By: #### A DIFF, TROPHS, GFR, BMP, MDW, CBC, PBNP, ANEU #### [place] [address] ALT/SGPT <8 Low 12-55 [facility] ([place]) Comment on above: Performed By: #### A DIFF, TROPHS, GFR, BMP, MDW, CBC, PBNP, ANEU #### [place] [address] AST [Catalytic activity/Vol] 12 U/L Normal 8-34 [facility] ([place]) Comment on above: Performed By: #### A DIFF, TROPHS, GFR, BMP, MDW, CBC, PBNP, ANEU #### [place] [address] Bili Total 0.40 mg/dL Normal 0.20-1.20 [facility] ([place]) Comment on above: Result Comment: Use of this assay is not recommended for patients undergoing treatment with eltrombopag due to the potential for falsely elevated results. Performed By: #### A DIFF, TROPHS, GFR, BMP, MDW, CBC, PBNP, ANEU #### [place] [address] BUN/Creatinine Ratio 11.2 ratio Normal 10.0-22.0 [facility] ([place]) Comment on above: Performed By: #### A DIFF, TROPHS, GFR, BMP, MDW, CBC, PBNP, ANEU #### [place] [address] Calcium [Mass/Vol] 8.8 mg/dL Normal 8.7-10.4 [facility] ([place]) Comment on above: Performed By: #### A DIFF, TROPHS, GFR, BMP, MDW, CBC, PBNP, ANEU #### [address] [address] Chloride [Moles/Vol] 100 mmol/L Normal 98-110 [facility] ([place]) Comment on above: Performed By: #### A DIFF, TROPHS, GFR, BMP, MDW, CBC, PBNP, ANEU #### [address] [address] CO2 [Moles/Vol] 29 mmol/L Normal 22-32 [facility] ([place]) Comment on above: Performed By: #### A DIFF, TROPHS, GFR, BMP, MDW, CBC, PBNP, ANEU #### [address] [address] Creatinine [Mass/Vol] 1.87 mg/dL High 0.60-1.40 [facility] ([place]) Comment on above: Result Comment: Test ing performed on [email or web address] analyzer using enzymatic creatinine methodology. Performed By: #### A DIFF, TROPHS, GFR, BMP, MDW, CBC, PBNP, ANEU #### [address] [address] Electrolyte Balance 8.0 mEq/L Normal 4.0-15.0 [facility] ([place]) Comment on above: Performed By: #### A DIFF, TROPHS, GFR, BMP, MDW, CBC, PBNP, ANEU #### [address] [address] Globulin 3.7 G/dL Normal 1.5-3.8 [facility] ([place]) Comment on above: Performed By: #### A DIFF, TROPHS, GFR, BMP, MDW, CBC, PBNP, ANEU #### [address] [address] Glucose [Mass/Vol] 133 mg/dL High 70-110 [facility] ([place]) Comment on above: Performed By: #### A DIFF, TROPHS, GFR, BMP, MDW, CBC, PBNP, ANEU #### [address] [address] Potassium [Moles/Vol] 3.6 mmol/L Normal 3.5-5.0 [facility] ([place]) Comment on above: Performed By: #### A DIFF, TROPHS, GFR, BMP, MDW, CBC, PBNP, ANEU #### [address] [address] Sodium [Moles/Vol] 137 mmol/L Normal 136-145 [facility]) Comment on above: Performed By: #### A DIFF, TROPHS, GFR, BMP, MDW, CBC, PBNP, ANEU #### [address] [address] Total Protein 6.7 G/dL Normal 5.7-8.2 [facility]) Comment on above: Result Comment: No te - New Reference Range in effect 19 Performed By: #### A DIFF, TROPHS, GFR, BMP, MDW, CBC, PBNP, ANEU #### [address] [address] Urea nitrogen [Mass/Vol] 21.0 mg/dL Normal 8.0-22.0 [facility] ([place] Comment on above: Performed By: #### A DIFF, TROPHS, GFR, BMP, MDW, CBC, PBNP, ANEU #### [address] [address] CVFLURVon 01-31-2024 FLU A PCR Negative Normal Negative [facility] ([place] Comment on above: Result Comment: [place] [id number] Performed By: #### A DIFF, TROPHS, GFR, BMP, MDW, CBC, PBNP, ANEU #### [address] [address] FLU B PCR Negative Normal Negative [facility] ([place]) Comment on above: Result Comment: [place] [id number] Performed By: #### A DIFF, TROPHS, GFR, BMP, MDW, CBC, PBNP, ANEU #### [place] [address] [place], [place] [address] RSV PCR Negative Normal Negative [facility] ([place] Comment on above: Result Comment: [place] [phone] Performed By: #### A DIFF, TROPHS, GFR, BMP, MDW, CBC, PBNP, ANEU #### [place] [address] [place], [place] [address] SARS-CoV-2 (COVID-19) RNA ROSE+probe Ql (Unsp spec) Negative Normal Negative [facility] ([place]) Comment on above: Result Comment: [place] [phone] This test has been authorized by FDA [...] GFR, BMP, MDW, CBC, PBNP, ANEU #### [place] [address] [place], [place] [address] LABORATORYOrdered By: SYSTEM SYSTEM on 01-31-2024 aPTT [...] above: Interpretive Data: T esting performed on [email or web address] analyzer using enzymatic creatinine methodology. Electrolyte Balance [...] [Vol rate/Area] 46 ml/min/1.73sqm Invalid Interpretation Code [facility] Comment on above: Interpretive Data: GFR [...] [Vol rate/Area] 38 ml/min/1.73sqm Invalid Interpretation Code [facility] Comment on above: Interpretive Data: GFR [...] Comment on above: Interpretive Data: Baljinder linn [employer] (CHEST, 1991, 102:[id number]) [...] 4 ng/L Normal 0 - 54 ng/L [facility] Comment on above: Interpretive Data: High Sensitive Troponin I Reference Ranges: Female: 0-34 ng/L Male: 0-54 ng/L Testing performed on Aqu[employer] analyzer using direct chemiluminescent technology. Urea nitrogen [Mass/Vol] 21.0 mg/dL Normal 8.0 - 22.0 mg/dL ADM Urea nitrogen/Creatinine [Mass ratio] 11.2 ratio Normal 10.0 - 22.0 ratio ADM WBC (Bld) [#/Vol] 13.2 103/mcL High 4.5 - 10.8 10^3/mcL Workflow SS LABORATORYOrdered By: Yoanna Coleman on 01-31-2024 Blood Glucose Testing Reason Routine (01/31/24 7:30 AM) [facility] Glucose [Mass/Vol] 146 mg/dL High 70 - 110 mg/dL [facility] LABORATORYOrdered By: Jacqueline Ospina on 01-31-2024 FLUAV RNA ROSE+probe Ql (Resp) Negative 15 (01/31/24 4:30 AM) Normal Negative [facility] Comment on above: Result Comment: [place] [id number] FLUBV RNA ROSE+probe Ql (Resp) Negative 16 (01/31/24 4:30 AM) Normal Negative [facility] Comment on above: Result Comment: [place] [id number] RSV PCR Negative 17 (01/31/24 4:30 AM) Normal Negative [facility] Comment on above: Result Comment: [place] [phone] SARS-CoV-2 (COVID-19) RNA ROSE+probe Ql (Resp) Negative 13, 14 (01/31/24 4:30 AM) Normal Negative [facility] Comment on above: Result Comment: [place] [phone] Interpretive Data: T his test has been [...] Glucose Testing Reason Routine (01/31/24 2:48 AM) [facility] Glucose [Mass/Vol] 153 mg/dL High 70 - 110 mg/dL [facility] LACon 01-31-2024 Lactic Acid Lvl 1.2 mmol/L Normal 0.5-2.2 [facility] ([place]) Comment on above: Result Comment: Spec imen hemolyzed. Results may be affected. Performed By: #### A DIFF, TROPHS, GFR, BMP, MDW, CBC, PBNP, ANEU #### [address] [address] MGon 01-31-2024 Magnesium [Mass/Vol] 1.5 mg/dL Low 1.6-2.4 [facility] ([place]) Comment on above: Performed By: #### A DIFF, TROPHS, GFR, BMP, MDW, CBC, PBNP, ANEU #### [address] [address] No Panel Informationon 01-30 Microscopic examination of blood, culture Culture has been received in lab and is no growth to date. Routine cultures are held for 5 days. [facility] PHOSon 01-31-2024 Phosphate [Mass/Vol] 3.1 mg/dL Normal 2.4-5.1 [facility] ([place]) Comment on above: Result Comment: No te - New Reference Range in effect 19 Performed By: #### A DIFF, TROPHS, GFR, BMP, MDW, CBC, PBNP, ANEU #### [address] [address] PROon 01-31-2024 INR Coag (PPP) [Relative time] 1.3 {INR} Normal [facility] ([place]) Comment on above: Result Comment: [employer] (CHEST, 1992, [id number]) recommended therapeutic range for oral anticoagulant therapy is: LOW RISK: Prophylaxis of venous thrombosis INR: 2.0-3.0 Treatment of pulmonary embolism 2.0-3.0 Prevention of systemic embolism 2.0-3.0 HIGH RISK: Mechanical prosthetic valves 2.5-3.5 Performed By: #### A DIFF, TROPHS, GFR, BMP, MDW, CBC, PBNP, ANEU #### [address] [place] [address] PT Coag (PPP) [Time] 14.7 s High 9.0-14.4 [facility] ([place]) Comment on above: Result Comment: Effe ctive 12/11/07, Protime results may be affected by some antibiotics (i.e. Ciprofloxacin, Azithromycin, Bactrim) which may potentiate the action of oral anticoagulants, with further increases in Protime/INR. Performed By: #### A DIFF, TROPHS, GFR, BMP, MDW, CBC, PBNP, ANEU #### [address] [address] TROPHSon 01-31-2024 High Sensitivity Troponin I 4 ng/L Normal 0-54 [facility] ([place]) Comment on above: Result Comment: High Sensitive Troponin I Reference Ranges: Female: 0-34 ng/L Male: 0-54 ng/L Testing performed on [employer] IM analyzer using direct chemiluminescent technology. Performed By: #### A DIFF, TROPHS, GFR, BMP, MDW, CBC, PBNP, ANEU #### [address] [address] .Auto Diffon 01-30-2024 Basophil, Absolute 0.2 10 3/mcL Normal 0.0-0.2 [facility] ([place]) Comment on above: Performed By: #### A DIFF, TROPHS, GFR, BMP, MDW, CBC, PBNP, ANEU #### [address] [address] Basophils/100 WBC (Bld) 1.1 % Normal 0.0-2.5 [facility] ([place]) Comment on above: Performed By: #### A DIFF, TROPHS, GFR, BMP, MDW, CBC, PBNP, ANEU #### [address] [address] Eosinophil, Absolute 0.1 10 3/mcL Normal 0.0-0.4 [facility] ([place]) Comment on above: Performed By: #### A DIFF, TROPHS, GFR, BMP, MDW, CBC, PBNP, ANEU #### [address] [address] Eosinophils/100 WBC (Bld) 0.7 % Normal 0.0-7.0 [facility] ([place]) Comment on above: Performed By: #### A DIFF, TROPHS, GFR, BMP, MDW, CBC, PBNP, ANEU #### [address] [address] Lymphocyte, Absolute 2.8 10 3/mcL Normal 0.8-3.9 [facility] ([place]) Comment on above: Performed By: #### A DIFF, TROPHS, GFR, BMP, MDW, CBC, PBNP, ANEU #### [address] [address] Lymphocytes/100 WBC (Bld) 20.2 % Normal 10.0-50.0 [facility] ([place]) Comment on above: Performed By: #### A DIFF, TROPHS, GFR, BMP, MDW, CBC, PBNP, ANEU #### [address] [address] Monocyte, Absolute 1.7 10 3/mcL High 0.2-1.0 [facility] ([place]) Comment on above: Performed By: #### A DIFF, TROPHS, GFR, BMP, MDW, CBC, PBNP, ANEU #### [address] [address] Monocytes/100 WBC (Bld) 12.2 % Normal 1.7-13.0 [facility] ([place]) Comment on above: Performed By: #### A DIFF, TROPHS, GFR, BMP, MDW, CBC, PBNP, ANEU #### [address] [address] Neutrophils/100 WBC (Bld) 65.8 % Normal 37.0-80.0 [facility] ([place]) Comment on above: Performed By: #### A DIFF, TROPHS, GFR, BMP, MDW, CBC, PBNP, ANEU #### [address] [address] .GFRon 01-30-2024 GFR 38 ml/min/1.73sqm Normal [facility] ([place]) Comment on above: Result Comment: GFR [...] GFR, BMP, MDW, CBC, PBNP, ANEU #### [address] [address] GFR Non- 31 ml/min/1.73sqm Normal [facility] ([place]) Comment on above: Result Comment: GFR Population [...] GFR, BMP, MDW, CBC, PBNP, ANEU #### [address] [address] .MDWon 01-30-2024 Monocyte Distribution Width 21.35 High 0.00-20.00 [facility] ([place]) Comment on above: Result Comment: For adults in ED, MDW>20.0 may be associated with a higher risk of sepsis during the first 12hrs of hospital admission Performed By: #### A DIFF, TROPHS, GFR, BMP, MDW, CBC, PBNP, ANEU #### [place] [address] .NEUABSon 01-30-2024 Neutrophil, Absolute 9.2 10 3/mcL High 2.9-6.2 [facility] ([place]) Comment on above: Performed By: #### A DIFF, TROPHS, GFR, BMP, MDW, CBC, PBNP, ANEU #### [place] [address] .Urinalysis Microscopic (AO) on 01-30-2024 UA RBC None Seen Normal None Seen [facility] ([place] Comment on above: Performed By: #### A DIFF, TROPHS, GFR, BMP, MDW, CBC, PBNP, ANEU #### [place] [address] UA Squam Epithelial None Seen Normal None Seen [facility] ([place]) Comment on above: Performed By: #### A DIFF, TROPHS, GFR, BMP, MDW, CBC, PBNP, ANEU #### [address] [address] UA WBC 0-5 Abnormal None Seen [facility] ([place]) Comment on above: Performed By: #### A DIFF, TROPHS, GFR, BMP, MDW, CBC, PBNP, ANEU #### [place] [address] BGon 01-30-2024 Base excess Calc (Bld) [Moles/Vol] 4.3 mmol/L Normal [facility] ([place]) Comment on above: Performed By: #### A DIFF, TROPHS, GFR, BMP, MDW, CBC, PBNP, ANEU #### [place] [address] CO2 [Moles/Vol] 29.8 mmol/L Normal 22.0-30.0 [facility] ([place] Comment on above: Performed By: #### A DIFF, TROPHS, GFR, BMP, MDW, CBC, PBNP, ANEU #### [address] [address] HCO3 (Bld) [Moles/Vol] 28.5 mmol/L Normal 21.0-29.0 [facility] ([place] Comment on above: Performed By: #### A DIFF, TROPHS, GFR, BMP, MDW, CBC, PBNP, ANEU #### [address] [address] Oxygen (Bld) [Partial pressure] 51.0 mm[Hg] Low 74.0-108.0 [facility] ([place] Comment on above: Performed By: #### A DIFF, TROPHS, GFR, BMP, MDW, CBC, PBNP, ANEU #### [address] [address] Oxygen saturation in Blood 88.8 % Low 92.0-96.0 [facility] ([place] Comment on above: Performed By: #### A DIFF, TROPHS, GFR, BMP, MDW, CBC, PBNP, ANEU #### [address] [address] pCO2 41.0 mmHg Normal 32.0-46.0 [facility] ([place] Comment on above: Performed By: #### A DIFF, TROPHS, GFR, BMP, MDW, CBC, PBNP, ANEU #### [address] [address] pH (Bld) 7.460 [pH] Normal 7.380-7.460 [facility] ([place] Comment on above: Performed By: #### A DIFF, TROPHS, GFR, BMP, MDW, CBC, PBNP, ANEU #### [address] [address] BMPon 01-30-2024 BUN/Creatinine Ratio 8 ratio Normal 7-27 [facility] ([place]) Comment on above: Performed By: #### A DIFF, TROPHS, GFR, BMP, MDW, CBC, PBNP, ANEU #### [address] [address] Calcium [Mass/Vol] 8.8 mg/dL Normal 8.4-10.2 [facility] ([place]) Comment on above: Performed By: #### A DIFF, TROPHS, GFR, BMP, MDW, CBC, PBNP, ANEU #### [address] [address] Chloride [Moles/Vol] 97 mmol/L Low 98-107 [facility] ([place]) Comment on above: Performed By: #### A DIFF, TROPHS, GFR, BMP, MDW, CBC, PBNP, ANEU #### [address] [address] CO2 [Moles/Vol] 31 mmol/L High 22-29 [facility] ([place]) Comment on above: Performed By: #### A DIFF, TROPHS, GFR, BMP, MDW, CBC, PBNP, ANEU #### [address] [address] Creatinine [Mass/Vol] 2.22 mg/dL High 0.70-1.30 [facility]) Comment on above: Result Comment: Test ing performed on Siemens Dimension EXL analyzer using a modified kinetic Ciera technique. Performed By: #### A DIFF, TROPHS, GFR, BMP, MDW, CBC, PBNP, ANEU #### [address] [address] Electrolyte Balance 6.0 mEq/L Normal 4.0-15.0 [facility] ([place]) Comment on above: Performed By: #### A DIFF, TROPHS, GFR, BMP, MDW, CBC, PBNP, ANEU #### [address] [address] Glucose [Mass/Vol] 112 mg/dL High 70-105 [facility] ([place]) Comment on above: Performed By: #### A DIFF, TROPHS, GFR, BMP, MDW, CBC, PBNP, ANEU #### [address] [address] Potassium [Moles/Vol] 3.7 mmol/L Normal 3.5-5.1 [facility] ([place]) Comment on above: Performed By: #### A DIFF, TROPHS, GFR, BMP, MDW, CBC, PBNP, ANEU #### [address] [address] Sodium [Moles/Vol] 134 mmol/L Low 136-145 [facility] ([place]) Comment on above: Performed By: #### A DIFF, TROPHS, GFR, BMP, MDW, CBC, PBNP, ANEU #### [address] [address] Urea nitrogen [Mass/Vol] 17 mg/dL Normal 7-18 [facility] ([place] Comment on above: Performed By: #### A DIFF, TROPHS, GFR, BMP, MDW, CBC, PBNP, ANEU #### [address] [address] CBCon 01-30-2024 Erythrocyte distribution width (RBC) [Ratio] 16.5 % High 11.5-14.5 [facility] ([place]) Comment on above: Performed By: #### A DIFF, TROPHS, GFR, BMP, MDW, CBC, PBNP, ANEU #### [address] [address] Hematocrit (Bld) [Volume fraction] 45.3 % Normal 42.0-52.0 [facility] ([place] Comment on above: Performed By: #### A DIFF, TROPHS, GFR, BMP, MDW, CBC, PBNP, ANEU #### [address] [address] Hgb 14.9 G/dL Normal 14.0-18.0 [facility] ([place] Comment on above: Performed By: #### A DIFF, TROPHS, GFR, BMP, MDW, CBC, PBNP, ANEU #### [address] [address] MCH (RBC) [Entitic mass] 26.6 pg Low 27.0-31.2 [facility] ([place] Comment on above: Performed By: #### A DIFF, TROPHS, GFR, BMP, MDW, CBC, PBNP, ANEU #### [address] [address] MCHC 33.0 G/dL Normal 31.8-35.4 [facility] ([place] Comment on above: Performed By: #### A DIFF, TROPHS, GFR, BMP, MDW, CBC, PBNP, ANEU #### [address] [address] MCV (RBC) [Entitic vol] 80.7 fL Normal 80.0-94.0 [facility] ([place] Comment on above: Performed By: #### A DIFF, TROPHS, GFR, BMP, MDW, CBC, PBNP, ANEU #### [address] [address] Platelet 263 10 3/mcL Normal 130-400 [facility] ([place] Comment on above: Performed By: #### A DIFF, TROPHS, GFR, BMP, MDW, CBC, PBNP, ANEU #### [address] [address] Platelet mean volume (Bld) [Entitic vol] 6.8 fL Low 7.4-10.4 [facility] ([place] Comment on above: Performed By: #### A DIFF, TROPHS, GFR, BMP, MDW, CBC, PBNP, ANEU #### [address] [address] RBC 5.61 10 6/mcL Normal 4.04-6.13 [facility] ([place] Comment on above: Performed By: #### A DIFF, TROPHS, GFR, BMP, MDW, CBC, PBNP, ANEU #### [address] [address] WBC 14.0 10 3/mcL High 4.6-10.8 [facility] ([place] Comment on above: Performed By: #### A DIFF, TROPHS, GFR, BMP, MDW, CBC, PBNP, ANEU #### [address] [address] [address] HEAD OR BRAIN W/O CONTRAS Ton [...] 01/30/2024 10:16:46 PM Ordering Provider: SAMY Kate [facility]) LABORATORYOrdered By: Jil Morales on 01-30-2024 Appearance [...] ng/L Male: 0-76 ng/L Testing performed on [employer] using a homogeneous sandwich chemiluminescent immunoassay based on LightUp technology. Lactate [Moles/Vol] 1.0 mmol/L Normal 0.4 [...] ng/L Male: 0-76 ng/L Testing performed on [employer] using a homogeneous sandwich chemiluminescent immunoassay based on LightUp technology. Urea nitrogen [Mass/Vol] 17 mg/dL Normal [...] Lactic Acid Lvl 1.0 mmol/L Normal 0.4-2.0 [facility] ([place] Comment on above: Performed By: #### L AC #### [address] [address] No Panel Informationon 01-29 Microscopic examination of blood, culture Culture has been received in lab and is no growth to date. Routine cultures are held for 5 days. [facility] PBNPon 01-30-2024 Natriuretic peptide B (Bld) [Mass/Vol] 1822 pg/mL High 0-125 [facility] ([place] Comment on above: Result Comment: NT-p roBNP results of less than 300 pg/mL effectively rules out acute congestive heart failure with 99% negative predictive value. Performed By: #### A DIFF, TROPHS, GFR, BMP, MDW, CBC, PBNP, ANEU #### [address] [address] TROPHSon 01-30-2024 High Sensitivity Troponin I 7 ng/L Normal 0-76 [facility] ([place] Comment on above: Result Comment: High Sensitive Troponin I Reference Ranges: Female: 0-51 ng/L Male: 0-76 ng/L Testing performed on [employer] using a homogeneous sandwich chemiluminescent immunoassay based on LightUp technology. Performed By: #### A DIFF, TROPHS, GFR, BMP, MDW, CBC, PBNP, ANEU #### [address] [address] High Sensitivity Troponin I 8 ng/L Normal 0-76 [facility] ([place] Comment on above: Result Comment: High Sensitive Troponin I Reference Ranges: Female: 0-51 ng/L Male: 0-76 ng/L Testing performed on Dimension EXL using a homogeneous sandwich chemiluminescent immunoassay based on LightUp technology. Performed By: #### A DIFF, TROPHS, GFR, BMP, MDW, CBC, PBNP, ANEU #### [address] [address] UAon 01-30-2024 Color (U) Yellow Normal [facility] ([place] Comment on above: Performed By: #### A DIFF, TROPHS, GFR, BMP, MDW, CBC, PBNP, ANEU #### [place] [address] [place], [place] [address] Glucose (U) [Mass/Vol] Negative Normal Negative [facility] ([place] Comment on above: Performed By: #### A DIFF, TROPHS, GFR, BMP, MDW, CBC, PBNP, ANEU #### [address] [address] Ketones Ql (U) Negative Normal Negative [facility] ([place] Comment on above: Performed By: #### A DIFF, TROPHS, GFR, BMP, MDW, CBC, PBNP, ANEU #### [address] [address] UA Appear Clear Normal Clear [facility] ([place] Comment on above: Performed By: #### A DIFF, TROPHS, GFR, BMP, MDW, CBC, PBNP, ANEU #### [address] [address] UA Bili Small Abnormal Negative [facility] ([place]) Comment on above: Performed By: #### A DIFF, TROPHS, GFR, BMP, MDW, CBC, PBNP, ANEU #### [address] [address] UA Blood Trace Abnormal Negative [facility] ([place]) Comment on above: Performed By: #### A DIFF, TROPHS, GFR, BMP, MDW, CBC, PBNP, ANEU #### [address] [address] UA Leuk Est Trace Abnormal Negative [facility] ([place]) Comment on above: Performed By: #### A DIFF, TROPHS, GFR, BMP, MDW, CBC, PBNP, ANEU #### [address] [address] UA Nitrite Negative Normal Negative [facility] ([place]) Comment on above: Performed By: #### A DIFF, TROPHS, GFR, BMP, MDW, CBC, PBNP, ANEU #### [address] [address] UA pH 6.0 Normal 5.0 - 8.0 [facility] ([place]) Comment on above: Performed By: #### A DIFF, TROPHS, GFR, BMP, MDW, CBC, PBNP, ANEU #### [address] [address] UA Protein 100 mg/dL Abnormal Negative [facility] ([place]) Comment on above: Performed By: #### A DIFF, TROPHS, GFR, BMP, MDW, CBC, PBNP, ANEU #### [address] [address] UA Spec Grav 1.025 Normal 1.015-1.025 [facility] ([place]) Comment on above: Performed By: #### A DIFF, TROPHS, GFR, BMP, MDW, CBC, PBNP, ANEU #### [address] [address] UA Specimen Type Void Normal [facility] ([place]) Comment on above: Performed By: #### A DIFF, TROPHS, GFR, BMP, MDW, CBC, PBNP, ANEU #### [address] [address] UA Urobilinogen 1.0 E.U./dL Normal 0.2-1.0 [facility] ([place]) Comment on above: Performed By: #### A DIFF, TROPHS, GFR, BMP, MDW, CBC, PBNP, ANEU #### [address] [address] XR CHEST 1 VIEWon 01-30-2024 XR CHEST [...] 01/30/2024 9:28:12 PM Ordering Provider: SAMY JONES [facility] ([place]) .GFRon 08-08-2023 GFR Non- 105 ml/min/1.73sqm Normal [facility] ([place]) Comment on above: Result Comment: GFR Population [...] GFR, BMP, MDW, CBC, PBNP, ANEU #### [address] [address] GFR 127 ml/min/1.73sqm Normal [facility] ([place]) Comment on above: Result Comment: GFR Population [...] GFR, BMP, MDW, CBC, PBNP, ANEU #### [address] [address] A1Con 08-08-2023 HbA1c (Bld) [Mass fraction] 6.7 % High 4.3-6.4 [facility] ([place]) Comment on above: Performed By: #### A DIFF, TROPHS, GFR, BMP, MDW, CBC, PBNP, ANEU #### [address] [address] CMPon 08-08-2023 Albumin Level 3.4 G/dL Low 3.5-5.0 [facility] ([place]) Comment on above: Performed By: #### A DIFF, TROPHS, GFR, BMP, MDW, CBC, PBNP, ANEU #### [address] [address] Albumin/Globulin [Mass ratio] 0.9 {ratio} Low 1.1-2.5 [facility] ([place]) Comment on above: Performed By: #### A DIFF, TROPHS, GFR, BMP, MDW, CBC, PBNP, ANEU #### [address] [address] ALP [Catalytic activity/Vol] 87 U/L Normal 40-135 [facility] ([place]) Comment on above: Performed By: #### A DIFF, TROPHS, GFR, BMP, MDW, CBC, PBNP, ANEU #### [address] [address] ALT [Catalytic activity/Vol] 19 U/L Normal 16-63 [facility] ([place]) Comment on above: Performed By: #### A DIFF, TROPHS, GFR, BMP, MDW, CBC, PBNP, ANEU #### [address] [address] AST [Catalytic activity/Vol] 15 U/L Normal 10-40 [facility] ([place]) Comment on above: Performed By: #### A DIFF, TROPHS, GFR, BMP, MDW, CBC, PBNP, ANEU #### [address] [address] Bili Total 0.5 mg/dL Normal 0.2-1.0 [facility] ([place]) Comment on above: Result Comment: Use of this assay is not recommended for patients undergoing treatment with eltrombopag due to the potential for falsely elevated results. Performed By: #### A DIFF, TROPHS, GFR, BMP, MDW, CBC, PBNP, ANEU #### [address] [address] BUN/Creatinine Ratio 14 ratio Normal 7-27 [facility] ([place]) Comment on above: Performed By: #### A DIFF, TROPHS, GFR, BMP, MDW, CBC, PBNP, ANEU #### [address] [address] Calcium [Mass/Vol] 8.7 mg/dL Normal 8.4-10.2 [facility] ([place]) Comment on above: Performed By: #### A DIFF, TROPHS, GFR, BMP, MDW, CBC, PBNP, ANEU #### [address] [address] Chloride [Moles/Vol] 100 mmol/L Normal 98-107 [facility] ([place]) Comment on above: Performed By: #### A DIFF, TROPHS, GFR, BMP, MDW, CBC, PBNP, ANEU #### [address] [address] CO2 [Moles/Vol] 34 mmol/L High 22-29 [facility] ([place]) Comment on above: Performed By: #### A DIFF, TROPHS, GFR, BMP, MDW, CBC, PBNP, ANEU #### [address] [address] Creatinine [Mass/Vol] 0.78 mg/dL Normal 0.70-1.30 [facility] ([place]) Comment on above: Performed By: #### A DIFF, TROPHS, GFR, BMP, MDW, CBC, PBNP, ANEU #### [address] [address] Electrolyte Balance 6.0 mEq/L Normal 4.0-15.0 [facility] ([place]) Comment on above: Performed By: #### A DIFF, TROPHS, GFR, BMP, MDW, CBC, PBNP, ANEU #### [address] [address] Globulin 3.8 G/dL Normal [facility] ([place]) Comment on above: Performed By: #### A DIFF, TROPHS, GFR, BMP, MDW, CBC, PBNP, ANEU #### [address] [address] Glucose [Mass/Vol] 121 mg/dL High 70-105 [facility] ([place]) Comment on above: Performed By: #### A DIFF, TROPHS, GFR, BMP, MDW, CBC, PBNP, ANEU #### [address] [address] Potassium [Moles/Vol] 4.2 mmol/L Normal 3.5-5.1 [facility] ([place]) Comment on above: Performed By: #### A DIFF, TROPHS, GFR, BMP, MDW, CBC, PBNP, ANEU #### [address] [address] Sodium [Moles/Vol] 140 mmol/L Normal 136-145 [facility]) Comment on above: Performed By: #### A DIFF, TROPHS, GFR, BMP, MDW, CBC, PBNP, ANEU #### [address] [address] Total Protein 7.2 G/dL Normal 6.4-8.2 [facility]) Comment on above: Performed By: #### A DIFF, TROPHS, GFR, BMP, MDW, CBC, PBNP, ANEU #### [address] [address] Urea nitrogen [Mass/Vol] 11 mg/dL Normal 7-18 [facility]) Comment on above: Performed By: #### A DIFF, TROPHS, GFR, BMP, MDW, CBC, PBNP, ANEU #### [address] [address] LABORATORYOrdered By: Jr Fontaine on 08-08-2023 Albumin DL <= 20 mg/L (U) [Mass/Vol] 378 mcg/dL Invalid Interpretation Code AO ADM SS Albumin/Creatinine DL <= 20 mg/L (U) [Mass ratio] 12 mcg/mg Normal 0 - 30 mcg/mg AO ADM SS Creatinine (U) [Mass/Vol] 30.5 mg/dL Low 39.0 - 259.0 mg/dL AO ADM SS LIPIDon 08-08-2023 Cholesterol [Mass/Vol] 156 mg/dL Normal 0-200 [facility] ([place]) Comment on above: Result Comment: Chol esterol Reference Interval: Less than 200 Desirable 200-239 Borderline high risk 240 and above High risk Performed By: #### A DIFF, TROPHS, GFR, BMP, MDW, CBC, PBNP, ANEU #### [address] [address] Cholesterol in HDL [Mass/Vol] 28 mg/dL Low 40-60 [facility] ([place]) Comment on above: Performed By: #### A DIFF, TROPHS, GFR, BMP, MDW, CBC, PBNP, ANEU #### [address] [address] Cholesterol in LDL [Mass/Vol] 93 mg/dL Normal 0-130 [facility] ([place]) Comment on above: Performed By: #### A DIFF, TROPHS, GFR, BMP, MDW, CBC, PBNP, ANEU #### [address] [address] Triglyceride [Mass/Vol] 175 mg/dL High 0-150 [facility] ([place]) Comment on above: Result Comment: Trig lyceride Reference Interval: Less than 150 Normal 150-199 Borderline high risk 200-499 High risk 500 or higher Very high risk Performed By: #### A DIFF, TROPHS, GFR, BMP, MDW, CBC, PBNP, ANEU #### [address] [address] MALBRon 08-08-2023 U Creatinine 30.5 mg/dL Low 39.0-259.0 [facility] ([place]) Comment on above: Performed By: #### A DIFF, TROPHS, GFR, BMP, MDW, CBC, PBNP, ANEU #### [address] [address] U Microalb 378 mcg/dL Normal [facility] ([place]) Comment on above: Performed By: #### A DIFF, TROPHS, GFR, BMP, MDW, CBC, PBNP, ANEU #### [place] [address] U Ratio Alb/Cre 12 mcg/mg Normal 0-30 [facility] ([place]) Comment on above: Performed By: #### A DIFF, TROPHS, GFR, BMP, MDW, CBC, PBNP, ANEU #### [place] [address] CVFLURVon 06-13-2023 FLU A PCR Negative Normal Negative [facility] ([place]) Comment on above: Performed By: #### A DIFF, TROPHS, GFR, BMP, MDW, CBC, PBNP, ANEU #### [place] [address] FLU B PCR Negative Normal Negative [facility] ([place]) Comment on above: Performed By: #### A DIFF, TROPHS, GFR, BMP, MDW, CBC, PBNP, ANEU #### [place] [address] RSV PCR Negative Normal Negative [facility] ([place]) Comment on above: Performed By: #### A DIFF, TROPHS, GFR, BMP, MDW, CBC, PBNP, ANEU #### [place] [address] SARS-CoV-2 (COVID-19) RNA ROSE+probe Ql (Unsp spec) Negative Normal Negative [facility] ([place]) Comment on above: Result Comment: This test [...] BMP, MDW, CBC, PBNP, ANEU #### [address] [place] [address] [place], [place] [address] LABORATORYOrdered By: Giovana Fischer on 06-13-2023 FLUAV [...] 06/13/2023 12:39:50 AM Ordering Provider: DEMI Kate [facility] ([place]) .Auto Diffon 06-09-2023 Basophil, Absolute 0.1 10 3/mcL Normal 0.0-0.3 [facility] ([place]) Comment on above: Performed By: #### A DIFF, TROPHS, GFR, BMP, MDW, CBC, PBNP, ANEU #### [address] [address] Basophils/100 WBC (Bld) 0.8 % Normal 0.0-2.5 [facility] ([place]) Comment on above: Performed By: #### A DIFF, TROPHS, GFR, BMP, MDW, CBC, PBNP, ANEU #### [address] [address] Eosinophil, Absolute 0.1 10 3/mcL Normal 0.0-0.7 [facility] ([place]) Comment on above: Performed By: #### A DIFF, TROPHS, GFR, BMP, MDW, CBC, PBNP, ANEU #### [address] [address] Eosinophils/100 WBC (Bld) 2.0 % Normal 0.0-6.0 [facility] ([place]) Comment on above: Performed By: #### A DIFF, TROPHS, GFR, BMP, MDW, CBC, PBNP, ANEU #### [address] [address] Lymphocyte, Absolute 1.0 10 3/mcL Normal 0.9-4.3 [facility] ([place]) Comment on above: Performed By: #### A DIFF, TROPHS, GFR, BMP, MDW, CBC, PBNP, ANEU #### [address] [address] Lymphocytes/100 WBC (Bld) 15.5 % Low 20.0-40.0 [facility] ([place]) Comment on above: Performed By: #### A DIFF, TROPHS, GFR, BMP, MDW, CBC, PBNP, ANEU #### [address] [address] Monocyte, Absolute 0.7 10 3/mcL Normal 0.1-1.4 [facility] ([place]) Comment on above: Performed By: #### A DIFF, TROPHS, GFR, BMP, MDW, CBC, PBNP, ANEU #### [address] [address] Monocytes/100 WBC (Bld) 11.1 % Normal 2.0-13.0 [facility] ([place]) Comment on above: Performed By: #### A DIFF, TROPHS, GFR, BMP, MDW, CBC, PBNP, ANEU #### [address] [address] Neutrophils/100 WBC (Bld) 70.6 % Normal 50.0-75.0 [facility] ([place]) Comment on above: Performed By: #### A DIFF, TROPHS, GFR, BMP, MDW, CBC, PBNP, ANEU #### [address] [address] .GFRon 06-09-2023 GFR Non- >60 Normal [facility] ([place]) Comment on above: Result Comment: GFR Population [...] GFR, BMP, MDW, CBC, PBNP, ANEU #### [address] [address] GFR >60 Normal [facility] ([place]) Comment on above: Result Comment: GFR Population [...] GFR, BMP, MDW, CBC, PBNP, ANEU #### [address] [address] .NEUABSon 06-09-2023 Neutrophil, Absolute 4.7 10 3/mcL Normal 2.3-8.1 [facility] ([place]) Comment on above: Performed By: #### A DIFF, TROPHS, GFR, BMP, MDW, CBC, PBNP, ANEU #### [address] [address] BMPon 06-09-2023 BUN/Creatinine Ratio 11.8 ratio Normal 10.0-22.0 [facility] ([place]) Comment on above: Performed By: #### A DIFF, TROPHS, GFR, BMP, MDW, CBC, PBNP, ANEU #### [address] [address] Calcium [Mass/Vol] 9.0 mg/dL Normal 8.7-10.4 [facility] ([place]) Comment on above: Performed By: #### A DIFF, TROPHS, GFR, BMP, MDW, CBC, PBNP, ANEU #### [address] [address] Chloride [Moles/Vol] 102 mmol/L Normal 98-110 [facility] ([place]) Comment on above: Performed By: #### A DIFF, TROPHS, GFR, BMP, MDW, CBC, PBNP, ANEU #### [address] [address] CO2 [Moles/Vol] 35 mmol/L High 22-32 [facility] ([place]) Comment on above: Performed By: #### A DIFF, TROPHS, GFR, BMP, MDW, CBC, PBNP, ANEU #### [address] [address] Creatinine [Mass/Vol] 0.85 mg/dL Normal 0.60-1.40 [facility] ([place]) Comment on above: Performed By: #### A DIFF, TROPHS, GFR, BMP, MDW, CBC, PBNP, ANEU #### [address] [address] Electrolyte Balance 0.0 mEq/L Low 4.0-15.0 [facility] ([place]) Comment on above: Performed By: #### A DIFF, TROPHS, GFR, BMP, MDW, CBC, PBNP, ANEU #### [address] [address] Glucose [Mass/Vol] 146 mg/dL High 70-110 [facility] ([place]) Comment on above: Performed By: #### A DIFF, TROPHS, GFR, BMP, MDW, CBC, PBNP, ANEU #### [address] [address] Potassium [Moles/Vol] 4.8 mmol/L Normal 3.5-5.0 [facility] ([place]) Comment on above: Performed By: #### A DIFF, TROPHS, GFR, BMP, MDW, CBC, PBNP, ANEU #### [address] [address] Sodium [Moles/Vol] 137 mmol/L Normal 136-145 [facility] ([place]) Comment on above: Performed By: #### A DIFF, TROPHS, GFR, BMP, MDW, CBC, PBNP, ANEU #### [address] [address] Urea nitrogen [Mass/Vol] 10.0 mg/dL Normal 8.0-22.0 [facility] ([place]) Comment on above: Result Comment: Spec imen hemolyzed. Results may be falsely elevated. Performed By: #### A DIFF, TROPHS, GFR, BMP, MDW, CBC, PBNP, ANEU #### [address] [address] CBCon 06-09-2023 Erythrocyte distribution width (RBC) [Ratio] 13.3 % Normal 11.5-15.5 [facility] ([place]) Comment on above: Performed By: #### A DIFF, TROPHS, GFR, BMP, MDW, CBC, PBNP, ANEU #### [address] [address] Hematocrit (Bld) [Volume fraction] 45.9 % Normal 40.0-52.0 [facility] ([place]) Comment on above: Performed By: #### A DIFF, TROPHS, GFR, BMP, MDW, CBC, PBNP, ANEU #### [address] [address] Hgb 15.6 G/dL Normal 13.0-17.5 [facility] ([place]) Comment on above: Performed By: #### A DIFF, TROPHS, GFR, BMP, MDW, CBC, PBNP, ANEU #### [address] [address] MCH (RBC) [Entitic mass] 29.0 pg Normal 27.0-33.0 [facility] ([place]) Comment on above: Performed By: #### A DIFF, TROPHS, GFR, BMP, MDW, CBC, PBNP, ANEU #### [address] [address] MCHC 33.9 G/dL Normal 32.0-36.0 [facility] ([place]) Comment on above: Performed By: #### A DIFF, TROPHS, GFR, BMP, MDW, CBC, PBNP, ANEU #### [address] [address] MCV (RBC) [Entitic vol] 85.5 fL Normal 81.0-100.0 [facility] ([place]) Comment on above: Performed By: #### A DIFF, TROPHS, GFR, BMP, MDW, CBC, PBNP, ANEU #### [address] [address] Platelet 174 10 3/mcL Normal 150-450 [facility] ([place]) Comment on above: Performed By: #### A DIFF, TROPHS, GFR, BMP, MDW, CBC, PBNP, ANEU #### [address] [address] Platelet mean volume (Bld) [Entitic vol] 7.5 fL Normal 6.4-10.5 [facility] ([place]) Comment on above: Performed By: #### A DIFF, TROPHS, GFR, BMP, MDW, CBC, PBNP, ANEU #### [address] [address] RBC 5.37 10 6/mcL Normal 4.50-6.00 [facility] ([place]) Comment on above: Performed By: #### A DIFF, TROPHS, GFR, BMP, MDW, CBC, PBNP, ANEU #### [address] [address] WBC 6.6 10 3/mcL Normal 4.5-10.8 [facility] ([place]) Comment on above: Performed By: #### A DIFF, TROPHS, GFR, BMP, MDW, CBC, PBNP, ANEU #### [place] [address] [place], [place] [address] LABORATORYOrdered By: Adenike Swain on 06-09-2023 Blood Glucose Testing Reason Routine (06/09/23 4:18 PM) [facility] Glucose [Mass/Vol] 114 mg/dL High 70 - 110 mg/dL [facility] LABORATORYOrdered By: Cris Jang on 06-09-2023 Blood Glucose Testing Reason Routine (06/09/23 7:51 AM) [facility] Glucose [Mass/Vol] 142 mg/dL High 70 - 110 mg/dL [facility] LABORATORYOrdered By: SYSTEM SYSTEM on 06-09-2023 Basophils [...] [Mass/Vol] 2.1 mg/dL Normal 1.6-2.4 [facility] ([place]) Comment on above: Performed By: #### A DIFF, TROPHS, GFR, BMP, MDW, CBC, PBNP, ANEU #### [address] [address] .Auto Diffon 06-08-2023 Basophil, Absolute 0.1 10 3/mcL Normal 0.0-0.3 [facility] ([place]) Comment on above: Performed By: #### A DIFF, TROPHS, GFR, BMP, MDW, CBC, PBNP, ANEU #### [address] [address] Basophils/100 WBC (Bld) 0.7 % Normal 0.0-2.5 [facility] ([place]) Comment on above: Performed By: #### A DIFF, TROPHS, GFR, BMP, MDW, CBC, PBNP, ANEU #### [address] [address] Eosinophil, Absolute 0.1 10 3/mcL Normal 0.0-0.7 [facility] ([place]) Comment on above: Performed By: #### A DIFF, TROPHS, GFR, BMP, MDW, CBC, PBNP, ANEU #### [address] [address] Eosinophils/100 WBC (Bld) 1.9 % Normal 0.0-6.0 [facility] ([place]) Comment on above: Performed By: #### A DIFF, TROPHS, GFR, BMP, MDW, CBC, PBNP, ANEU #### [address] [address] Lymphocyte, Absolute 1.3 10 3/mcL Normal 0.9-4.3 [facility] ([place]) Comment on above: Performed By: #### A DIFF, TROPHS, GFR, BMP, MDW, CBC, PBNP, ANEU #### [address] [address] Lymphocytes/100 WBC (Bld) 16.1 % Low 20.0-40.0 [facility] ([place]) Comment on above: Performed By: #### A DIFF, TROPHS, GFR, BMP, MDW, CBC, PBNP, ANEU #### [address] [address] Monocyte, Absolute 0.8 10 3/mcL Normal 0.1-1.4 [facility] ([place]) Comment on above: Performed By: #### A DIFF, TROPHS, GFR, BMP, MDW, CBC, PBNP, ANEU #### [address] [address] Monocytes/100 WBC (Bld) 9.9 % Normal 2.0-13.0 [facility] ([place]) Comment on above: Performed By: #### A DIFF, TROPHS, GFR, BMP, MDW, CBC, PBNP, ANEU #### [address] [address] Neutrophils/100 WBC (Bld) 71.4 % Normal 50.0-75.0 [facility] ([place] Comment on above: Performed By: #### A DIFF, TROPHS, GFR, BMP, MDW, CBC, PBNP, ANEU #### [address] [address] .GFRon 06-08-2023 GFR >60 Normal [facility] ([place]) Comment on above: Result Comment: GFR Population [...] GFR, BMP, MDW, CBC, PBNP, ANEU #### [address] [address] GFR Non- >60 Normal [facility] ([place]) Comment on above: Result Comment: GFR Population [...] GFR, BMP, MDW, CBC, PBNP, ANEU #### [address] [address] .NEUABSon 06-08-2023 Neutrophil, Absolute 5.7 10 3/mcL Normal 2.3-8.1 [facility] ([place]) Comment on above: Performed By: #### A DIFF, TROPHS, GFR, BMP, MDW, CBC, PBNP, ANEU #### [address] [address] BMPon 06-08-2023 BUN/Creatinine Ratio 10.7 ratio Normal 10.0-22.0 [facility] ([place]) Comment on above: Performed By: #### A DIFF, TROPHS, GFR, BMP, MDW, CBC, PBNP, ANEU #### [address] [address] Calcium [Mass/Vol] 8.9 mg/dL Normal 8.7-10.4 [facility] ([place]) Comment on above: Performed By: #### A DIFF, TROPHS, GFR, BMP, MDW, CBC, PBNP, ANEU #### [address] [address] Chloride [Moles/Vol] 100 mmol/L Normal 98-110 [facility] ([place]) Comment on above: Performed By: #### A DIFF, TROPHS, GFR, BMP, MDW, CBC, PBNP, ANEU #### [address] [address] CO2 [Moles/Vol] 36 mmol/L High 22-32 [facility] ([place]) Comment on above: Performed By: #### A DIFF, TROPHS, GFR, BMP, MDW, CBC, PBNP, ANEU #### [address] [address] Creatinine [Mass/Vol] 0.75 mg/dL Normal 0.60-1.40 [facility] ([place]) Comment on above: Performed By: #### A DIFF, TROPHS, GFR, BMP, MDW, CBC, PBNP, ANEU #### [address] [address] Electrolyte Balance 1.0 mEq/L Low 4.0-15.0 [facility] ([place]) Comment on above: Performed By: #### A DIFF, TROPHS, GFR, BMP, MDW, CBC, PBNP, ANEU #### [address] [address] Glucose [Mass/Vol] 160 mg/dL High 70-110 [facility] ([place]) Comment on above: Performed By: #### A DIFF, TROPHS, GFR, BMP, MDW, CBC, PBNP, ANEU #### [address] [address] Potassium [Moles/Vol] 3.4 mmol/L Low 3.5-5.0 [facility] ([place]) Comment on above: Result Comment: Spec imen slightly hemolyzed. Performed By: #### A DIFF, TROPHS, GFR, BMP, MDW, CBC, PBNP, ANEU #### [address] [address] Sodium [Moles/Vol] 137 mmol/L Normal 136-145 [facility] ([place] Comment on above: Performed By: #### A DIFF, TROPHS, GFR, BMP, MDW, CBC, PBNP, ANEU #### [address] [address] Urea nitrogen [Mass/Vol] 8.0 mg/dL Normal 8.0-22.0 [facility] ([place]) Comment on above: Performed By: #### A DIFF, TROPHS, GFR, BMP, MDW, CBC, PBNP, ANEU #### [address] [address] CBCon 06-08-2023 Erythrocyte distribution width (RBC) [Ratio] 13.1 % Normal 11.5-15.5 [facility] ([place]) Comment on above: Performed By: #### A DIFF, TROPHS, GFR, BMP, MDW, CBC, PBNP, ANEU #### [address] [address] Hematocrit (Bld) [Volume fraction] 45.7 % Normal 40.0-52.0 [facility] ([place] Comment on above: Performed By: #### A DIFF, TROPHS, GFR, BMP, MDW, CBC, PBNP, ANEU #### [address] [address] Hgb 15.6 G/dL Normal 13.0-17.5 [facility] ([place]) Comment on above: Performed By: #### A DIFF, TROPHS, GFR, BMP, MDW, CBC, PBNP, ANEU #### [address] [address] MCH (RBC) [Entitic mass] 29.1 pg Normal 27.0-33.0 [facility] ([place] Comment on above: Performed By: #### A DIFF, TROPHS, GFR, BMP, MDW, CBC, PBNP, ANEU #### [address] [address] MCHC 34.3 G/dL Normal 32.0-36.0 [facility] ([place]) Comment on above: Performed By: #### A DIFF, TROPHS, GFR, BMP, MDW, CBC, PBNP, ANEU #### [address] [address] MCV (RBC) [Entitic vol] 85.0 fL Normal 81.0-100.0 [facility] ([place] Comment on above: Performed By: #### A DIFF, TROPHS, GFR, BMP, MDW, CBC, PBNP, ANEU #### [address] [address] Platelet 200 10 3/mcL Normal 150-450 [facility] ([place]) Comment on above: Performed By: #### A DIFF, TROPHS, GFR, BMP, MDW, CBC, PBNP, ANEU #### [address] [address] Platelet mean volume (Bld) [Entitic vol] 7.5 fL Normal 6.4-10.5 [facility] ([place]) Comment on above: Performed By: #### A DIFF, TROPHS, GFR, BMP, MDW, CBC, PBNP, ANEU #### [address] [address] RBC 5.37 10 6/mcL Normal 4.50-6.00 [facility] ([place]) Comment on above: Performed By: #### A DIFF, TROPHS, GFR, BMP, MDW, CBC, PBNP, ANEU #### [address] [address] WBC 7.9 10 3/mcL Normal 4.5-10.8 [facility] ([place]) Comment on above: Performed By: #### A DIFF, TROPHS, GFR, BMP, MDW, CBC, PBNP, ANEU #### [address] [address] LABORATORYOrdered By: Adenike Swain on 06-08-2023 Blood Glucose Testing Reason Routine (06/08/23 9:18 PM) [facility] Glucose [Mass/Vol] 173 mg/dL High 70 - 110 mg/dL [facility] LABORATORYOrdered By: SYSTEM SYSTEM on 06-08-2023 Basophils [...] [Mass/Vol] 2.1 mg/dL Normal 1.6-2.4 [facility] ([place]) Comment on above: Performed By: #### A DIFF, TROPHS, GFR, BMP, MDW, CBC, PBNP, ANEU #### [address] [address] .Auto Diffon 06-07-2023 Basophil, Absolute 0.1 10 3/mcL Normal 0.0-0.3 [facility] ([place]) Comment on above: Performed By: #### A DIFF, TROPHS, GFR, BMP, MDW, CBC, PBNP, ANEU #### [address] [address] Basophils/100 WBC (Bld) 0.6 % Normal 0.0-2.5 [facility] ([place]) Comment on above: Performed By: #### A DIFF, TROPHS, GFR, BMP, MDW, CBC, PBNP, ANEU #### [address] [address] Eosinophil, Absolute 0.2 10 3/mcL Normal 0.0-0.7 [facility] ([place]) Comment on above: Performed By: #### A DIFF, TROPHS, GFR, BMP, MDW, CBC, PBNP, ANEU #### [address] [address] Eosinophils/100 WBC (Bld) 1.6 % Normal 0.0-6.0 [facility] ([place]) Comment on above: Performed By: #### A DIFF, TROPHS, GFR, BMP, MDW, CBC, PBNP, ANEU #### [address] [address] Lymphocyte, Absolute 1.4 10 3/mcL Normal 0.9-4.3 [facility] ([place]) Comment on above: Performed By: #### A DIFF, TROPHS, GFR, BMP, MDW, CBC, PBNP, ANEU #### [address] [address] Lymphocytes/100 WBC (Bld) 14.0 % Low 20.0-40.0 [facility] ([place]) Comment on above: Performed By: #### A DIFF, TROPHS, GFR, BMP, MDW, CBC, PBNP, ANEU #### [address] [address] Monocyte, Absolute 0.6 10 3/mcL Normal 0.1-1.4 [facility] ([place]) Comment on above: Performed By: #### A DIFF, TROPHS, GFR, BMP, MDW, CBC, PBNP, ANEU #### [address] [address] Monocytes/100 WBC (Bld) 6.4 % Normal 2.0-13.0 [facility] ([place]) Comment on above: Performed By: #### A DIFF, TROPHS, GFR, BMP, MDW, CBC, PBNP, ANEU #### [address] [address] Neutrophils/100 WBC (Bld) 77.4 % High 50.0-75.0 [facility] ([place]) Comment on above: Performed By: #### A DIFF, TROPHS, GFR, BMP, MDW, CBC, PBNP, ANEU #### [address] [address] .GFRon 06-07-2023 GFR >60 Normal [facility] ([place]) Comment on above: Result Comment: GFR Population [...] GFR, BMP, MDW, CBC, PBNP, ANEU #### [address] [address] GFR Non- >60 Normal [facility] ([place]) Comment on above: Result Comment: GFR Population [...] GFR, BMP, MDW, CBC, PBNP, ANEU #### [address] [address] .NEUABSon 06-07-2023 Neutrophil, Absolute 7.7 10 3/mcL Normal 2.3-8.1 [facility] ([place]) Comment on above: Performed By: #### A DIFF, TROPHS, GFR, BMP, MDW, CBC, PBNP, ANEU #### [address] [address] CBCon 06-07-2023 Erythrocyte distribution width (RBC) [Ratio] 14.0 % Normal 11.5-15.5 [facility] ([place]) Comment on above: Performed By: #### A DIFF, TROPHS, GFR, BMP, MDW, CBC, PBNP, ANEU #### [place] [address] Hematocrit (Bld) [Volume fraction] 47.6 % Normal 40.0-52.0 [facility] ([place]) Comment on above: Performed By: #### A DIFF, TROPHS, GFR, BMP, MDW, CBC, PBNP, ANEU #### [place] [address] Hgb 16.3 G/dL Normal 13.0-17.5 [facility] ([place]) Comment on above: Performed By: #### A DIFF, TROPHS, GFR, BMP, MDW, CBC, PBNP, ANEU #### [place] [address] MCH (RBC) [Entitic mass] 29.1 pg Normal 27.0-33.0 [facility] ([place]) Comment on above: Performed By: #### A DIFF, TROPHS, GFR, BMP, MDW, CBC, PBNP, ANEU #### [place] [address] MCHC 34.2 G/dL Normal 32.0-36.0 [facility] ([place]) Comment on above: Performed By: #### A DIFF, TROPHS, GFR, BMP, MDW, CBC, PBNP, ANEU #### [place] [address] MCV (RBC) [Entitic vol] 84.9 fL Normal 81.0-100.0 [facility] ([place]) Comment on above: Performed By: #### A DIFF, TROPHS, GFR, BMP, MDW, CBC, PBNP, ANEU #### [place] [address] Platelet 228 10 3/mcL Normal 150-450 [facility] ([place]) Comment on above: Performed By: #### A DIFF, TROPHS, GFR, BMP, MDW, CBC, PBNP, ANEU #### [place] [address] Platelet mean volume (Bld) [Entitic vol] 8.0 fL Normal 6.4-10.5 [facility] ([place]) Comment on above: Performed By: #### A DIFF, TROPHS, GFR, BMP, MDW, CBC, PBNP, ANEU #### [address] [address] RBC 5.61 10 6/mcL Normal 4.50-6.00 [facility] ([place]) Comment on above: Performed By: #### A DIFF, TROPHS, GFR, BMP, MDW, CBC, PBNP, ANEU #### [address] [address] WBC 9.9 10 3/mcL Normal 4.5-10.8 [facility] ([place]) Comment on above: Performed By: #### A DIFF, TROPHS, GFR, BMP, MDW, CBC, PBNP, ANEU #### [address] [address] CMPon 06-07-2023 Albumin Level 3.3 G/dL Normal 3.2-4.8 [facility] ([place]) Comment on above: Order Comment: hemol yzed. needs redrawn Performed By: #### A DIFF, TROPHS, GFR, BMP, MDW, CBC, PBNP, ANEU #### [address] [address] Albumin/Globulin [Mass ratio] 0.9 {ratio} Normal 0.9-1.6 [facility] ([place]) Comment on above: Order Comment: hemol yzed. needs redrawn Performed By: #### A DIFF, TROPHS, GFR, BMP, MDW, CBC, PBNP, ANEU #### [place] [address] ALP [Catalytic activity/Vol] 93 U/L Normal 38-126 [facility] ([place]) Comment on above: Order Comment: hemol yzed. needs redrawn Performed By: #### A DIFF, TROPHS, GFR, BMP, MDW, CBC, PBNP, ANEU #### [address] [address] ALT [Catalytic activity/Vol] 13 U/L Normal 12-55 [facility] ([place]) Comment on above: Order Comment: hemol yzed. needs redrawn Performed By: #### A DIFF, TROPHS, GFR, BMP, MDW, CBC, PBNP, ANEU #### [address] [address] AST [Catalytic activity/Vol] 13 U/L Normal 8-34 [facility] ([place]) Comment on above: Order Comment: hemol yzed. needs redrawn Performed By: #### A DIFF, TROPHS, GFR, BMP, MDW, CBC, PBNP, ANEU #### [address] [address] Bili Total 0.30 mg/dL Normal 0.20-1.20 [facility] ([place]) Comment on above: Order Comment: hemol yzed. needs redrawn Result Comment: Use of this assay is not recommended for patients undergoing treatment with eltrombopag due to the potential for falsely elevated results. Performed By: #### A DIFF, TROPHS, GFR, BMP, MDW, CBC, PBNP, ANEU #### [address] [address] BUN/Creatinine Ratio 10.8 ratio Normal 10.0-22.0 [facility] ([place]) Comment on above: Order Comment: hemol yzed. needs redrawn Performed By: #### A DIFF, TROPHS, GFR, BMP, MDW, CBC, PBNP, ANEU #### [address] [address] Calcium [Mass/Vol] 8.8 mg/dL Normal 8.7-10.4 [facility] ([place]) Comment on above: Order Comment: hemol yzed. needs redrawn Performed By: #### A DIFF, TROPHS, GFR, BMP, MDW, CBC, PBNP, ANEU #### [address] [address] Chloride [Moles/Vol] 97 mmol/L Low 98-110 [facility] ([place]) Comment on above: Order Comment: hemol yzed. needs redrawn Performed By: #### A DIFF, TROPHS, GFR, BMP, MDW, CBC, PBNP, ANEU #### [address] [address] CO2 [Moles/Vol] 37 mmol/L High 22-32 [facility] ([place]) Comment on above: Order Comment: hemol yzed. needs redrawn Performed By: #### A DIFF, TROPHS, GFR, BMP, MDW, CBC, PBNP, ANEU #### [address] [address] Creatinine [Mass/Vol] 0.93 mg/dL Normal 0.60-1.40 [facility] ([place]) Comment on above: Order Comment: hemol yzed. needs redrawn Performed By: #### A DIFF, TROPHS, GFR, BMP, MDW, CBC, PBNP, ANEU #### [address] [address] Electrolyte Balance 3.0 mEq/L Low 4.0-15.0 [facility] ([place]) Comment on above: Order Comment: hemol yzed. needs redrawn Performed By: #### A DIFF, TROPHS, GFR, BMP, MDW, CBC, PBNP, ANEU #### [address] [address] Globulin 3.6 G/dL Normal 1.5-3.8 [facility] ([place]) Comment on above: Order Comment: hemol yzed. needs redrawn Performed By: #### A DIFF, TROPHS, GFR, BMP, MDW, CBC, PBNP, ANEU #### [address] [address] Glucose [Mass/Vol] 209 mg/dL High 70-110 [facility] ([place]) Comment on above: Order Comment: hemol yzed. needs redrawn Performed By: #### A DIFF, TROPHS, GFR, BMP, MDW, CBC, PBNP, ANEU #### [address] [address] Potassium [Moles/Vol] 3.6 mmol/L Normal 3.5-5.0 [facility] ([place]) Comment on above: Order Comment: hemol yzed. needs redrawn Result Comment: Spec imen slightly hemolyzed. Performed By: #### A DIFF, TROPHS, GFR, BMP, MDW, CBC, PBNP, ANEU #### [address] [address] Sodium [Moles/Vol] 137 mmol/L Normal 136-145 [facility] ([place]) Comment on above: Order Comment: hemol yzed. needs redrawn Performed By: #### A DIFF, TROPHS, GFR, BMP, MDW, CBC, PBNP, ANEU #### [address] [address] Total Protein 6.9 G/dL Normal 5.7-8.2 [facility] ([place]) Comment on above: Order Comment: hemol yzed. needs redrawn Result Comment: No te - New Reference Range in effect 19 Performed By: #### A DIFF, TROPHS, GFR, BMP, MDW, CBC, PBNP, ANEU #### [address] [address] Urea nitrogen [Mass/Vol] 10.0 mg/dL Normal 8.0-22.0 [facility] ([place]) Comment on above: Order Comment: hemol yzed. needs redrawn Performed By: #### A DIFF, TROPHS, GFR, BMP, MDW, CBC, PBNP, ANEU #### [address] [address] LABORATORYOrdered By: SYSTEM SYSTEM on 06-07-2023 Albumin [...] [Mass/Vol] 1.7 mg/dL Normal 1.6-2.4 [facility] ([place]) Comment on above: Performed By: #### A DIFF, TROPHS, GFR, BMP, MDW, CBC, PBNP, ANEU #### Larry [address] [address] XR CHEST 1 VIEWon 05-05-2023 XR CHEST [...] 05/05/2023 9:17:04 PM Ordering Provider: DEMI HUSTON [facility] ([place]) XR RIBS 2 VIEWS RIGHTon XR RIBS [...] 05/05/2023 9:08:30 PM Ordering Provider: DEMI HUSTON [facility] ([place]) PBNPon 03-22-2023 Natriuretic peptide B (Bld) [Mass/Vol] 378 pg/mL High 0-125 [facility] ([place]) Comment on above: Result Comment: NT-p roBNP results of less than 300 pg/mL effectively rules out acute congestive heart failure with 99% negative predictive value. Performed By: #### A DIFF, TROPHS, GFR, BMP, MDW, CBC, PBNP, ANEU #### Larry [address], [place] [address] Influenza virus A and B and SARS-CoV-2 (COVID-19) Ag panel - Upper respiratory specimOrdered By: Nguyễn Al on 02-12-2023 SARS-CoV-2 (COVID-19) RNA ROSE+probe Ql (Resp) [facility] LABORATORYOrdered By: SYSTEM SYSTEM on 12-23-2022 Calcium [...] 150 mg/dL AO ADM SS LABORATORYOrdered By: [employer] SYSTEM on 10-27-2022 Albumin BCP dye [Mass/Vol] [...] Auto (Unsp spec) [#/Vol] 1.50 10*3/uL 0.83-4.51 [facility] Basophil percentageOrdered B y: Dr. Brown on 10-23-2022 Basophils/100 WBC (Bld) 0.8 % 0-1 [facility] Chloride [Moles/Vol] 102 mmol/L 98-107 [facility] Eosinophils/100 WBC (Bld) 2.4 % 0-5 [facility] Glucose [Mass/Vol] 126 mg/dL 74-106 [facility] Comment on above: Fasting Glucose resu lt greater than or equal to 126 mg/dL suggests DIABETES MELLITUS per A.D.A. criteria. Neutrophils (Bld) [#/Vol] 5.4 10*3/uL 2.0-7.7 [facility] Neutrophils/100 WBC (Bld) 67.9 % 47-70 [facility] Potassium [Moles/Vol] 3.2 mmol/L 3.5-5.1 [facility] Sodium [Moles/Vol] 140 mmol/L 136-145 [facility] WBC (Bld) [#/Vol] 7.9 10*3/uL 4.4-11.0 [facility] Blood erythrocytes count (nu mber/volume)Ordered By: Dr. Brown on 10-23-2022 RBC (Bld) [#/Vol] 6.06 10*6/uL 4.6-6.2 [facility] Blood hemoglobin measurement (mass/volume)Ordered By: Dr. Brown on 10-23-2022 Hemoglobin (Bld) [Mass/Vol] 17.2 g/dL 13.0-16.5 [facility] Blood lymphocytes/100 leukoc ytesOrdered By: Dr. Brown on 10-23-2022 Lymphocytes/100 WBC (Bld) 19.0 % 19-41 [facility] Blood monocytes/100 leukocyt esOrdered By: Dr. Brown on 10-23-2022 Monocytes/100 WBC (Bld) 9.6 % 0-10 [facility] Blood platelet mean volumeOr dered By: Dr. Brown on 10-23-2022 Platelet mean volume (Bld) [Entitic vol] 10.3 fL 6.2-12.0 [facility] Determination of erythrocyte mean corpuscular volume (MCV)Ordered By: Dr. Brown on 10-23-2022 MCV (RBC) [Entitic vol] 89.6 fL 80-94 [facility] Hematocrit Auto (Bld) [Volum e fraction]Ordered By: Dr. Brown on 10-23-2022 Hematocrit (Bld) [Volume fraction] 54.3 % 40-54 [facility] Laboratory - Chemistry and C hemistry - challengeOrdered By: Dr. Brown on 10-23-2022 CO2 [Moles/Vol] 32.0 mmol/L 21.0-32.0 [facility] Natriuretic peptide B (Bld) [Mass/Vol] 182.2 pg/mL 0-100 [facility] Urea nitrogen/Creatinine [Mass ratio] 13.0 mg/mg 10-20 [facility] Laboratory - Hematology and Cell countsOrdered By: Dr. Brown on 10-23-2022 Erythrocyte distribution width (RBC) [Entitic vol] 46.1 fL 35.1-43.9 [facility] Erythrocyte distribution width (RBC) [Ratio] 14.1 % 11.6-14.6 [facility] Immature granulocytes/100 WBC (Bld) 0.300 % 0.0-0.9 [facility] Comment on above: IG% - Immature Granu locytes (promyelocytes, myelocytes and metamyelocytes) > 1% indicates that a LEFT SHIFT is Present. MCH (RBC) [Entitic mass] 28.4 pg 27.0-32.0 [facility] Nucleated RBC/100 WBC (Bld) [Ratio] 0 % 0-5 [facility] MCHC Auto (RBC) [Mass/Vol]Or dered By: Dr. Brown on 10-23-2022 MCHC (RBC) [Mass/Vol] 31.7 g/dL 32-36 [facility] No Panel InformationOrdered By: Dr. Brown on 10-23-2022 Troponin I High Sensitivity 14 pg/mL 3.0-78.0 [facility] Comment on above: Please Note: New [place] t Units and Gender Specific Reference Ranges. For more information see Policy Stat Procedure [place] High Sensitivity Troponin (TNIH) and attachments. Estimated Creatinine Clearance Calc 104.04 ml/min [facility] Estimated GFR (MDRD) Amer 123 mL/min >60 [facility] Comment on above: GFR Calc Estimated GFR (MDRD) Non-Af Amer 102 mL/min >60 [facility] Comment on above: Non- GFR Calc Platelets bldOrdered By: Dr. Brown on 10-23-2022 Platelets (Bld) [#/Vol] 234 10*3/uL 150-450 [facility] Serum or plasma calcium scott urement (mass/volume)Ordered By: Dr. Brown on 10-23-2022 Calcium [Mass/Vol] 8.7 mg/dL 8.5-10.1 [facility] Serum or plasma creatinine m easurement (mass/volume)Ordered By: Dr. Brown on 10-23-2022 Creatinine [Mass/Vol] 0.84 mg/dL 0.70-1.30 [facility] Comment on above: The validity of the calculated GFR & GFRAA in patients over 70 years has not been determined. Clinical correlation is essential. Serum or plasma urea nitroge n measurement (mass/volume)Ordered By: Dr. Brown on 10-23-2022 Urea nitrogen [Mass/Vol] 11 mg/dL 7-18 [facility] Thin prep Papanicolaou smear with manual screeningOrdered By: Dr. Brown on 10-23-2022 Thin prep Papanicolaou smear with manual screening 6 5-15 [facility] Invasive Cardiology Clinic N oteon 08-24-2021 Invasive Cardiology Clinic Note . [facility] A Division of [facility] Gem Barr M.D., [place] [address] * Reason for VisitFOLLOW UP CHEST PAIN(1) [...] me to participate in your patient's care. Industrial Technician Statement: Transcribed for Dr. Barr by LEWIS , conventional underwriter. 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 Normal Cytology Supervisor Services Echocardiogram-Completeon Echocardiogram-Comple te Study ID: [id number] [facility] [place] [address] Name: WARRENSOCORRO BENNETTJR Study Date: 08/17/2021 07:55 AM BP: 152/92 mmHg Patient Location: [facility] HR: 84 : 1970 Gender: Male [...] mmHg MV P1/2t-pr: 94.6 msec E/LatE': 9.4 [id number] 0_Adult_WH{1}__ [id number] [facility] Invasive Cardiology Clinic N mary 08-02-2021 Invasive Cardiology Clinic Note . [facility] A Division of [facility] Gem Barr M.D., [place] [address] * Reason for VisitFOLLOW UP CHEST PAIN(1) [...] to con (more content not included)... 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 Normal [facility] GLYCOHEMOGLOBINon 01-06-2021 HbA1c (Bld) [Mass fraction] 6.43 % High 4.60-6.30 [facility] Comment on above: Performed By: #### % A1c #### [facility] [address] [place] [id number] SUE Flores MD LIPID PROFILE - FASTINGon Cholesterol [Mass/Vol] 152 mg/dL Normal <=200 [facility] Comment on above: Performed By: #### L IPID #### [facility] [address] [place], [place] [id number] SUE Flores MD Cholesterol in HDL [Mass/Vol] 28 mg/dL Low 40-60 [facility] Comment on above: Performed By: #### L IPID #### [facility] [address] [place], [place] [id number] SUE Flores MD Cholesterol in LDL [Mass/Vol] 85 mg/dL Normal 0-130 [facility] Comment on above: Performed By: #### L IPID #### [facility] [address] [place], [place] [id number] SUE Flores MD COMMENT Recommended (Desirable) < 130mg/dL Moderate Risk 130-159 mg/dL High Risk: >/= 130 mg/dL Normal [facility] Comment on above: Performed By: #### L IPID #### [facility] [address] [place] [address] SUE Flores MD Triglyceride [Mass/Vol] 198 mg/dL High <=150 [facility] Comment on above: Performed By: #### L IPID #### [facility] [address] [place] [address] SUE Flores MD RENAL FUNCTION PANELon 01-06 Albumin [Mass/Vol] 4.4 g/dL Normal 3.5-5.0 [facility] Comment on above: Performed By: #### R FP #### [facility] [address] [place] [address] SUE Flores MD Calcium [Mass/Vol] 9.6 mg/dL Normal 8.4-10.2 [facility] Comment on above: Performed By: #### R FP #### [facility] [address] [place], [place] [id number] SUE Flores MD Chloride [Moles/Vol] 96 mmol/L Low 98-107 [facility] Comment on above: Performed By: #### R FP #### [facility] [address] [place], [place] [id number] SUE Flores MD Creatinine [Mass/Vol] 0.9 mg/dL Normal 0.7-1.3 [facility] Comment on above: Performed By: #### R FP #### [facility] [address] [place] [address] SUE Flores MD ECO2 29 mmol/L Normal 22-30 [facility] Comment on above: Performed By: #### R FP #### [facility] [address] [place] [address] SUE Flores MD EGFR-AF [place] 109 mL/min/1.73m 2 Normal >=60 [facility] Comment on above: Performed By: #### R FP #### [facility] [address] [place] [address] SUE Flores MD EGFR-NON AF [place] 90 mL/min/1.73 m 2 Normal >=60 [facility] Comment on above: Performed By: #### R FP #### [facility] [address] [place] [address] SUE Flores MD Glucose [Mass/Vol] 146 mg/dL High 70-99 [facility] Comment on above: Performed By: #### R FP #### [facility] [address] [place] [address] SUE Flores MD Phosphate [Mass/Vol] 4.2 mg/dL Normal 2.5-4.5 [facility] Comment on above: Performed By: #### R FP #### [facility] [address] [place] [address] SUE Flores MD Potassium [Moles/Vol] 4.0 mmol/L Normal 3.5-5.0 [facility] Comment on above: Performed By: #### R FP #### [facility] [address] [place] [address] SUE Flores MD Sodium [Moles/Vol] 136 mmol/L Low 137-145 [facility] Comment on above: Performed By: #### R FP #### [facility] [address] [place] [address] SUE Flores MD Urea nitrogen [Mass/Vol] 13 mg/dL Normal 9-20 [facility] Comment on above: Performed By: #### R FP #### [facility] [address] [place], [place] [id number] USE Flores MD CHEST TWO VIEWSon 11-09-2020 CHEST [...] DYER MD Date: 11/09/2020 3:55 PM Normal [facility] CBC PLT DIFFon 06-11-2020 BASO # 0.04 10 3/uL Normal 0.00-0.10 [facility] Comment on above: Performed By: #### C BC #### [facility] [address] [place] [address] SUE Flores MD Basophils/100 WBC (Bld) 0.5 % Normal 0.2-1.0 [facility] Comment on above: Performed By: #### C BC #### [facility] [address] [place] [address] SUE Flores MD EOS# 0.19 10 3/uL Normal 0.00-0.20 [facility] Comment on above: Performed By: #### C BC #### [facility] [address] [place], [place] [id number] SUE Flores MD Eosinophils/100 WBC (Bld) 2.3 % Normal 0.9-2.9 [facility] Comment on above: Performed By: #### C BC #### [facility] [address] [place], [place] [id number] SUE Flores MD Erythrocyte distribution width (RBC) [Ratio] 13.4 % Normal 11.5-15.5 [facility] Comment on above: Performed By: #### C BC #### [facility] [address] [place] [address] SUE Flores MD Hematocrit (Bld) [Volume fraction] 46.5 % Normal 42.0-52.0 [facility] Comment on above: Performed By: #### C BC #### [facility] [address] [place] [address] SUE Flores MD Hemoglobin (Bld) [Mass/Vol] 16.0 g/dL Normal 14.0-18.0 [facility] Comment on above: Performed By: #### C BC #### [facility] [address] [place] [address] SUE Flores MD IG# 0.04 10 3/uL Normal [facility] Comment on above: Performed By: #### C BC #### [facility] [address] [place] [address] SUE Flores MD IG% 0.5 % Normal [facility] Comment on above: Performed By: #### C BC #### [facility] [address] [place] [address] SUE Flores MD LYMPH# 1.41 10 3/uL Normal 1.30-2.90 [facility] Comment on above: Performed By: #### C BC #### [facility] [address] [place] [address] SUE Flores MD Lymphocytes/100 WBC (Bld) 17.4 % Low 20.5-45.5 [facility] Comment on above: Performed By: #### C BC #### [facility] [address] [place] [address] SUE Flores MD MCH (RBC) [Entitic mass] 30.1 pg Normal 27.0-31.0 [facility] Comment on above: Performed By: #### C BC #### [facility] [address] [place], [place] [id number] SUE Flores MD MCHC (RBC) [Mass/Vol] 34.4 g/dL Normal 32.0-36.0 [facility] Comment on above: Performed By: #### C BC #### [facility] [address] [place] [address] SUE Flores MD MCV (RBC) [Entitic vol] 87.6 fL Normal 80.0-94.0 [facility] Comment on above: Performed By: #### C BC #### [facility] [address] [place], [place] [id number] SUE Flores MD MONO# 0.67 10 3/uL Normal 0.30-0.80 [facility] Comment on above: Performed By: #### C BC #### [facility] [address] [place], [place] [id number] SUE Flores MD Monocytes/100 WBC (Bld) 8.3 % Normal 5.5-11.7 [facility] Comment on above: Performed By: #### C BC #### [facility] [address] [place] [address] SUE Flores MD Morphology Rocky (Bld) [Interp] Normal [facility] Comment on above: Performed By: #### C BC #### [facility] [address] [place], [place] [id number] SUE Flores MD NEUT# 5.75 10 3/uL High 2.20-4.80 [facility] Comment on above: Performed By: #### C BC #### [facility] [address] [place], [place] [id number] SUE Flores MD Neutrophils/100 WBC (Bld) 71.0 % High 43.0-65.0 [facility] Comment on above: Performed By: #### C BC #### [facility] [address] [place], [place] [id number] SUE Flores MD NRBC# 0.00 10 3/uL Normal [facility] Comment on above: Performed By: #### C BC #### [facility] [address] [place] [id number] SUE Flores MD Nucleated RBC/100 WBC (Bld) [Ratio] 0.0 % Normal [facility] Comment on above: Performed By: #### C BC #### [facility] [address] [place], [place] [id number] SUE Flores MD Platelet mean volume (Bld) [Entitic vol] 8.4 fL Normal 7.4-10.4 [facility] Comment on above: Performed By: #### C BC #### [facility] [address] [place], [place] [id number] SUE Flores MD PLT 221 10 3/uL Normal 130-400 [facility] Comment on above: Performed By: #### C BC #### [facility] [address] [place], [place] [id number] SUE Flores MD RBC 5.31 10 6/uL Normal 4.70-6.10 [facility] Comment on above: Performed By: #### C BC #### [facility] [address] [place], [place] [id number] SUE Flores MD WBC 8.10 10 3/uL Normal 4.70-10.80 [facility] Comment on above: Performed By: #### C BC #### [facility] [address] [place], [place] [id number] SUE Flores MD CMPon 06-11-2020 Albumin [Mass/Vol] 4.1 g/dL Normal 3.5-5.0 [facility] Comment on above: Performed By: #### C MP #### [facility] [address] [place], [place] [id number] SUE Flores MD ALP [Catalytic activity/Vol] 72 U/L Normal 38-126 [facility] Comment on above: Performed By: #### C MP #### [facility] [address] [place], [place] [id number] SUE Flores MD ALT [Catalytic activity/Vol] 17 U/L Low 21-72 [facility] Comment on above: Performed By: #### C MP #### [facility] [address] [place], [place] [id number] SUE lFores MD AST [Catalytic activity/Vol] 21 U/L Normal 17-59 [facility] Comment on above: Performed By: #### C MP #### [facility] [address] [place], [place] [id number] SUE Flores MD Bilirubin [Mass/Vol] 0.6 mg/dL Normal 0.2-1.3 [facility] Comment on above: Performed By: #### C MP #### [facility] [address] [place] [id number] SUE Flores MD Calcium [Mass/Vol] 8.9 mg/dL Normal 8.4-10.2 [facility] Comment on above: Performed By: #### C MP #### [facility] [address] [place], [place] [id number] SUE Flores MD Chloride [Moles/Vol] 99 mmol/L Normal 98-107 [facility] Comment on above: Performed By: #### C MP #### [facility] [address] [place], [place] [id number] SUE Flores MD Creatinine [Mass/Vol] 0.7 mg/dL Normal 0.7-1.3 [facility] Comment on above: Performed By: #### C MP #### [facility] [address] [place], [place] [id number] SUE Flores MD ECO2 30 mmol/L Normal 22-30 [facility] Comment on above: Performed By: #### C MP #### [facility] [address] [place], [place] [id number] SUE Flores MD EGFR-[place] 146 mL/min/1.73m 2 Normal >=60 [facility] Comment on above: Performed By: #### C MP #### [facility] [address] [place], [place] [id number] SUE Flores MD EGFR-NON AF [place]IZ[place] 120 mL/min/1.73 m 2 Normal >=60 [facility] Comment on above: Performed By: #### C MP #### [facility] [address] [place], [place] [id number] SUE Flores MD Glucose [Mass/Vol] 125 mg/dL High 70-99 [facility] Comment on above: Performed By: #### C MP #### [facility] [address] [place], [place] [id number] SUE Flores MD Potassium [Moles/Vol] 3.6 mmol/L Normal 3.5-5.0 [facility] Comment on above: Performed By: #### C MP #### [facility] [address] [place] [id number] SUE Flores MD Protein [Mass/Vol] 7.4 g/dL Normal 6.3-8.2 [facility] Comment on above: Performed By: #### C MP #### [facility] [address] [place], [place] [id number] SUE Flores MD Sodium [Moles/Vol] 136 mmol/L Low 137-145 [facility] Comment on above: Performed By: #### C MP #### [facility] [address] [place], [place] [id number] SUE Flores MD Urea nitrogen [Mass/Vol] 11 mg/dL Normal 9-20 [facility] Comment on above: Performed By: #### C MP #### [facility] [address] [place], [place] [id number] SUE Flores MD GLYCOHEMOGLOBINon 06-11-2020 HbA1c (Bld) [Mass fraction] 6.22 % Normal 4.00-6.30 [facility] Comment on above: Performed By: #### % A1c #### [facility] [address] [place] [address] SUE Flores MD LIPID PROFILE - FASTINGon Cholesterol [Mass/Vol] 147 mg/dL Normal <=200 [facility] Comment on above: Performed By: #### L IPID #### [facility] [address] [place] [id number] SUE Flores MD Cholesterol in HDL [Mass/Vol] 24 mg/dL Low 40-60 [facility] Comment on above: Performed By: #### L IPID #### [facility] [address] [place], [place] [id number] SUE Flores MD Cholesterol in LDL [Mass/Vol] 89 mg/dL Normal 0-130 [facility] Comment on above: Performed By: #### L IPID #### [facility] [address] [place], [place] [id number] SUE Flores MD COMMENT Recommended (Desirable) < 130mg/dL Moderate Risk 130-159 mg/dL High Risk: >/= 130 mg/dL Normal [facility] Comment on above: Performed By: #### L IPID #### [facility] [address] [place] [address] SUE Flores MD Triglyceride [Mass/Vol] 167 mg/dL High <=150 [facility] Comment on above: Performed By: #### L IPID #### [facility] [address] [place] [address] SUE Flores MD URIC ACIDon 06-11-2020 Urate [Mass/Vol] 5.6 mg/dL Normal 3.5-8.5 [facility] Comment on above: Performed By: #### U R #### [facility] [address] [place] [address] SUE Flores MD Vital Signs Date Time Vital Sign Value Performing Clinician Faci lity 10-04-2024 21:13-0400 Reason For Taking VItal Signs DR ROBERT SCHMITZ MD [address] 10-04-2024 19:37-0400 Heart rate 71 /min DR ROBERT Walls [address] 10-04-2024 19:37-0400 Reason For Taking VItal Signs DR ROBERT SCHMITZ MD [facility] 10-04-2024 19:37-0400 Respiratory rate 18 /min DR ROBERT Walls [facility] 10-04-2024 19:14-0400 Heart rate 66 /min DR ROBERT Walls [address] 10-04-2024 19:14-0400 Blood Pressure Cuff Size DR ROBERT SCHMITZ MD [facility] 10-04-2024 19:14-[address] ROBERT SCHMITZ MD [address] [place] [address] 10-04-2024 19:14-[address] ROBERT SCHMITZ MD [address] [place] [address] 10-04-2024 19:14-0400 Body temperature 97.7 [degF] DR ROBERT Walls [address] [place] [address] 10-04-2024 19:14-0400 Diastolic Blood Pressure Non-Invasive 90 mm[Hg] DR ROBERT SCHMITZ MD [address] [place] [address] 10-04-2024 19:14-0400 Reason For Taking VItal Signs DR ROBERT SCHMITZ MD [address] [place] [address] 10-04-2024 19:14-0400 Respiratory rate 16 /min DR ROBERT Walls [address] [place] [address] 10-04-2024 19:14-0400 Systolic Blood Pressure Non-Invasive 138 mm[Hg] DR ROBERT SCHMITZ MD [address] [place] [address] 10-04-2024 16:28-0400 Heart rate 72 /min DR ROBERT Walls [address] [place] [address] 10-04-2024 15:31-0400 Heart rate 72 /min DR ROBERT Walls [address] [place] [address] 10-04-2024 15:31-0400 Blood Pressure Cuff Size DR ROBERT SCHMITZ MD [address] [place] [address] 10-04-2024 15:31-[address] ROBERT SCHMITZ MD [address] [place] [address] 10-04-2024 15:31-[address] ROBERT SCHMITZ MD [address] [place] [address] 10-04-2024 15:31-0400 Body temperature 97.52 [degF] DR ROBERT Walls [address] [place] [address] 10-04-2024 15:31-0400 Diastolic Blood Pressure Non-Invasive 72 mm[Hg] DR ROBERT SCHMITZ MD [address] [place] [address] 10-04-2024 15:31-0400 Respiratory rate 16 /min DR ROBERT Walls [address] [place] [address] 10-04-2024 15:31-0400 Systolic Blood Pressure Non-Invasive 120 mm[Hg] DR ROBERT SCHMITZ MD [address] [place] [address] 10-04-2024 15:02-0400 Blood Pressure Cuff Size DR ROBERT SCHMITZ MD [address] [place] [address] 10-04-2024 15:02-[address] ROBERT SCHMITZ MD [address] [place] [address] 10-04-2024 15:02-[address] ROBERT SCHMITZ MD [address] [place] [address] 10-04-2024 15:02-0400 Body temperature 97.88 [degF] DR ROBERT Walls [address] [place] [address] 10-04-2024 15:02-0400 Diastolic Blood Pressure Non-Invasive 78 mm[Hg] DR ROBERT SCHMITZ MD [address] [place] [address] 10-04-2024 15:02-0400 Heart rate 73 /min DR ROBERT Walls [address] [place] [address] 10-04-2024 15:02-0400 Systolic Blood Pressure Non-Invasive 116 mm[Hg] DR ROBERT SCHMITZ MD [address] [place] [address] 10-04-2024 11:59-0400 Heart rate 61 /min DR ROBERT Walls [address] [place] [address] 10-04-2024 07:54-0400 Heart rate 66 /min DR ROBERT Walls [address] [place] [address] 10-04-2024 07:46-0400 Heart rate 64 /min DR ROBERT Walls [facility] 10-03-2024 16:05-0400 Heart rate 74 /min DR ROBERT Walls [facility] 10-02-2024 06:28-0400 Body height 177.[address] ROBERT Walls [facility] 10-02-2024 06:28-0400 Body weight 140.[address] ROBERT Walls [facility] 10-02-2024 06:28-0400 Body weight 44.38 kg/m2 DR ROBERT Walls [facility] 10-02-2024 05:00-0400 Diastolic Blood Pressure Non-Invasive 68 mm[Hg] DELORES DURESKA DO [facility] 10-02-2024 05:00-0400 Heart rate 116 /min DELORES DURESKA DO [facility] 10-02-2024 05:00-0400 Systolic Blood Pressure Non-Invasive 108 mm[Hg] DELORES DURESKA DO [facility] 10-02-2024 04:00-0400 Diastolic Blood Pressure Non-Invasive 70 mm[Hg] DELORES DURESKA DO [facility] 10-02-2024 04:00-0400 Heart rate 125 /min DELORES DURESKA DO [facility] 10-02-2024 04:00-0400 Systolic Blood Pressure Non-Invasive 101 mm[Hg] DELORES DURESKA DO [facility] 10-02-2024 02:31-0400 Body weight 143 kg DELORES DURESKA DO [facility] 10-02-2024 02:15-0400 Diastolic Blood Pressure Non-Invasive 90 mm[Hg] DELORES BARROSOESKA DO [facility] 10-02-2024 02:15-0400 Heart rate 120 /min DELORES BARROSOESKA DO [facility] 10-02-2024 02:15-0400 Respiratory rate 18 /min DELORES VOKA DO [facility] 10-02-2024 02:15-0400 Systolic Blood Pressure Non-Invasive 106 mm[Hg] DELORES VOKA DO [facility] 10-02-2024 00:27-0400 Body temperature 98.06 [degF] DELORES MURO DO [facility] 02-01-2024 16:08-0400 Heart rate 72 /min CINDY HERNANDEZ MD [facility] 02-01-2024 15:25-0400 Heart rate 68 /min CINDY HERNANDEZ MD [facility] 02-01-2024 15:25-0400 Respiratory rate 18 /min CINDY HERNANDEZ MD [facility] 02-01-2024 14:44-0400 Body temperature 98.6 [degF] CINDY HERNANDEZ MD [facility] 02-01-2024 14:44-0400 Diastolic Blood Pressure Non-Invasive 82 mm[Hg] CINDY HERNANDEZ MD [facility] 02-01-2024 14:44-0400 Heart rate 72 /min CINDY HERNANDEZ MD [facility] 02-01-2024 14:44-0400 Respiratory rate 18 /min CINDY HERNANDEZ MD [facility] 02-01-2024 14:44-0400 Systolic Blood Pressure Non-Invasive 119 mm[Hg] CINDY HERNANDEZ MD [facility] 02-01-2024 11:12-0400 Body temperature 98.24 [degF] CINDY HERNANDEZ MD [facility] 02-01-2024 11:12-0400 Diastolic Blood Pressure Non-Invasive 72 mm[Hg] CINDY HERNANDEZ MD [facility] 02-01-2024 11:12-0400 Heart rate 82 /min CINDY HERNANDEZ MD [facility] 02-01-2024 11:12-0400 Reason For Taking VItal Signs CINDY HERNANDEZ MD [facility] 02-01-2024 11:12-0400 Respiratory rate 18 /min CINDY HERNANDEZ MD [facility] 02-01-2024 11:12-0400 Systolic Blood Pressure Non-Invasive 101 mm[Hg] CINDY HERNANDEZ MD [facility] 02-01-2024 09:16-0400 Heart rate 79 /min CINDY HERNANDEZ MD [facility] 02-01-2024 09:04-0400 Blood Pressure Cuff Size CINDY HERNANDEZ MD [facility] 02-01-2024 09:04-0400 Blood Pressure Location CINDY HERNANDEZ MD [facility] 02-01-2024 09:04-0400 Blood Pressure Method CINDY HERNANDEZ MD [facility] 02-01-2024 09:04-0400 Body temperature 98.96 [degF] CINDY HERNANDEZ MD [facility] 02-01-2024 09:04-0400 Diastolic Blood Pressure Non-Invasive 64 mm[Hg] CINDY HERNANDEZ MD [facility] 02-01-2024 09:04-0400 Heart rate 84 /min CINDY HERNANDEZ MD [facility] 02-01-2024 09:04-0400 Reason For Taking VItal Signs CINDY HERNANDEZ MD [facility] 02-01-2024 09:04-0400 Systolic Blood Pressure Non-Invasive 105 mm[Hg] CINDY HERNANDEZ MD [facility] 02-01-2024 07:04-0400 Heart rate 60 /min CINDY HERNANDEZ MD [facility] 02-01-2024 03:35-0400 Heart rate 80 /min CINDY HERNANDEZ MD [facility] 02-01-2024 03:35-0400 Mean blood pressure 73 mm[Hg] CINDY HERNANDEZ MD [facility] 02-01-2024 03:35-0400 Reason For Taking VItal Signs CINDY HERNANDEZ MD [facility] 01-31-2024 23:23-0400 Heart rate 84 /min CINDY HERNANDEZ MD [facility] 01-31-2024 23:23-0400 Mean blood pressure 74 mm[Hg] CINDY HERNANDEZ MD [facility] 01-31-2024 18:38-0400 Mean blood pressure 79 mm[Hg] CINDY HERNANDEZ MD [facility] 01-31-2024 02:56-0400 Body height 175 cm CINDY HERNANDEZ MD [facility] 01-31-2024 02:56-0400 Body weight 149.1 kg CINDY HERNANDEZ MD [facility] 01-31-2024 02:56-0400 Body weight 48.69 kg/m2 CINDY HERNANDEZ MD [facility] 01-31-2024 01:18-[address] SAMY JONES MD [facility] 01-31-2024 01:18-[address] SAMY JONES MD [facility] 01-31-2024 01:18-0400 Diastolic Blood Pressure Non-Invasive 71 mm[Hg] DR SAMY JONES MD [facility] 01-31-2024 01:18-0400 Heart rate 90 /min DR SAMY JONES MD [facility] 01-31-2024 01:18-0400 Mean blood pressure 82 mm[Hg] DR SAMY JONES MD [facility] 01-31-2024 01:18-0400 Reason For Taking VItal Signs DR SAMY JONES MD [facility] 01-31-2024 01:18-0400 Respiratory rate 18 /min DR SAMY JONES MD [facility] 01-31-2024 01:18-0400 Systolic Blood Pressure Non-Invasive 111 mm[Hg] DR SAMY JONES MD [facility] 01-31-2024 01:07-[address] SAMY JONES MD [facility] 01-31-2024 01:07-[address] SAMY JONES MD [facility] 01-31-2024 01:07-0400 Diastolic Blood Pressure Non-Invasive 61 mm[Hg] DR SAMY JONES MD [facility] 01-31-2024 01:07-0400 Heart rate 85 /min DR SAMY JONES MD [facility] 01-31-2024 01:07-0400 Mean blood pressure 71 mm[Hg] DR SAMY JONES MD [facility] 01-31-2024 01:07-0400 Reason For Taking VItal Signs DR SAMY JONES MD [facility] 01-31-2024 01:07-0400 Respiratory rate 12 /min DR SAMY JONES MD [facility] 01-31-2024 01:07-0400 Systolic Blood Pressure Non-Invasive 90 mm[Hg] DR SAMY JONES MD [facility] 01-31-2024 00:58-[address] SAMY JONES MD [facility] 01-31-2024 00:58-[address] SAMY JONES MD [facility] 01-31-2024 00:58-0400 Diastolic Blood Pressure Non-Invasive 64 mm[Hg] DR SAMY JONES MD [facility] 01-31-2024 00:58-0400 Heart rate 89 /min DR SAMY JONES MD [facility] 01-31-2024 00:58-0400 Mean blood pressure 76 mm[Hg] DR SAMY JONES MD [facility] 01-31-2024 00:58-0400 Reason For Taking VItal Signs DR SAMY JONES MD [facility] 01-31-2024 00:58-0400 Respiratory rate 13 /min DR SAMY JONES MD [facility] 01-31-2024 00:58-0400 Systolic Blood Pressure Non-Invasive 97 mm[Hg] DR SAMY JONES MD [facility] 01-30-2024 20:22-0400 SaO2% (BldA) [Mass fraction] 88.8 % DR SAMY JONES MD [facility] 01-30-2024 20:15-0400 Body height 175.[address] SAMY JONES MD [facility] 01-30-2024 20:15-0400 Body temperature 99.32 [degF] DR SAMY JONES MD [facility] 01-30-2024 20:15-0400 Body weight 145.[address] SAMY JONES MD [facility] 01-30-2024 20:15-0400 Heart rate 133 /min DR SAMY JONES MD [facility] 08-09-2023 21:07-0400 Blood Pressure Cuff Size DR OLLIE BROOKE MD [facility] 08-09-2023 21:07-[address] OLLIE BROOKE MD [facility] 08-09-2023 21:07-[address] OLLIE BROOKE MD [facility] 08-09-2023 21:07-0400 Body height 177.[address] OLLIE BROOKE MD [facility] 08-09-2023 21:07-0400 Body temperature 96.98 [degF] DR OLLIE BROOKE MD [facility] 08-09-2023 21:07-0400 Body weight 155.[address] OLLIE BROOKE MD [facility] 08-09-2023 21:07-0400 Diastolic Blood Pressure Non-Invasive 78 mm[Hg] DR OLLIE BROOKE MD [facility] 08-09-2023 21:07-0400 Heart rate 70 /min DR OLLIE BROOKE MD [facility] 08-09-2023 21:07-0400 Reason For Taking VItal Signs DR OLLIE BROOKE MD [facility] 08-09-2023 21:07-0400 Respiratory rate 22 /min DR OLLIE BROOKE MD [facility] 08-09-2023 21:07-0400 Systolic Blood Pressure Non-Invasive 121 mm[Hg] DR OLLIE BROOKE MD [facility] 06-13-2023 01:18-0500 Diastolic Blood Pressure Non-Invasive 78 mm[Hg] DEMI HUSTON MD [facility] 06-13-2023 01:18-0500 Heart rate 80 /min DEMI HUSTON MD [facility] 06-13-2023 01:18-0500 Respiratory rate 18 /min DEMI HUSTON MD [facility] 06-13-2023 01:18-0500 Systolic Blood Pressure Non-Invasive 142 mm[Hg] DEMI HUSTON MD [facility] 06-13-2023 00:35-0500 Heart rate 74 /min DEMI HUSTON MD [facility] 06-13-2023 00:35-0500 Respiratory rate 20 /min DEMI HUSTON MD [facility] 06-13-2023 00:03-0500 Body temperature 97.7 [degF] DEMI HUSTON MD [facility] 06-13-2023 00:03-0500 Diastolic Blood Pressure Non-Invasive 84 mm[Hg] DEMI HUSTON MD [facility] 06-13-2023 00:03-0500 Heart rate 67 /min DEMI HUSTON MD [facility] 06-13-2023 00:03-0500 Respiratory rate 20 /min DEMI HUSTON MD [facility] 06-13-2023 00:03-0500 Systolic Blood Pressure Non-Invasive 153 mm[Hg] DEMI HUSTON MD [facility] 06-09-2023 21:35-0500 Heart rate 60 /min MOY WATTS MD [facility] 06-09-2023 21:35-0500 Reason For Taking VItal Signs MOY WATTS MD [facility] 06-09-2023 21:35-0500 Respiratory rate 18 /min MOY WATTS MD [facility] 06-09-2023 19:40-0500 Blood Pressure Cuff Size MOY WATTS MD [facility] 06-09-2023 19:40-0500 Blood Pressure Location MOY WATTS MD [facility] 06-09-2023 19:40-0500 Blood Pressure Method MOY WATTS MD [address] [place] [address] 06-09-2023 19:40-0500 Body temperature 98.24 [degF] MOY WATTS MD [address] [place] [address] 06-09-2023 19:40-0500 Diastolic Blood Pressure Non-Invasive 66 mm[Hg] MOY WATTS MD [address] [place] [address] 06-09-2023 19:40-0500 Heart rate 63 /min MOY WATTS MD [address] [place] [address] 06-09-2023 19:40-0500 Reason For Taking VItal Signs MOY WATTS MD [address] [place] [address] 06-09-2023 19:40-0500 Respiratory rate 18 /min MOY WATTS MD [address] [place] [address] 06-09-2023 19:40-0500 Systolic Blood Pressure Non-Invasive 112 mm[Hg] MOY WATTS MD [address] [place] [address] 06-09-2023 19:29-0500 Heart rate 63 /min MOY WATTS MD [address] [place] [address] 06-09-2023 16:56-0500 Heart rate 66 /min MOY WATTS MD [address] [place] [address] 06-09-2023 16:04-0500 Blood Pressure Cuff Size MOY WATTS MD [address] [place] [address] 06-09-2023 16:04-0500 Blood Pressure Location MOY WATTS MD [address] [place] [address] 06-09-2023 16:04-0500 Blood Pressure Method MOY WATTS MD [address] [place] [address] 06-09-2023 16:04-0500 Body temperature 97.88 [degF] MOY WATTS MD [address] [place] [address] 06-09-2023 16:04-0500 Diastolic Blood Pressure Non-Invasive 78 mm[Hg] MOY WATTS MD [address] [place] [address] 06-09-2023 16:04-0500 Reason For Taking VItal Signs MOY WATTS MD [address] [place] [address] 06-09-2023 16:04-0500 Respiratory rate 18 /min MOY WATTS MD [address] [place] [address] 06-09-2023 16:04-0500 Systolic Blood Pressure Non-Invasive 138 mm[Hg] MOY WATTS MD [address] [place] [address] 06-09-2023 11:17-0500 Blood Pressure Cuff Size MOY WATTS MD [address] [place] [address] 06-09-2023 11:17-0500 Blood Pressure Location MOY WATTS MD [address] [place] [address] 06-09-2023 11:17-0500 Blood Pressure Method MOY WATTS MD [address] [place] [address] 06-09-2023 11:17-0500 Body temperature 97.88 [degF] MOY WATTS MD [address] [place] [address] 06-09-2023 11:17-0500 Diastolic Blood Pressure Non-Invasive 64 mm[Hg] MOY WATTS MD [address] [place] [address] 06-09-2023 11:17-0500 Systolic Blood Pressure Non-Invasive 126 mm[Hg] MOY WATTS MD [address] [place] [address] 06-09-2023 08:54-0500 Heart rate 66 /min MOY WATTS MD [address] 06-08-2023 23:49-0500 Mean blood pressure 77 mm[Hg] MOY WATTS MD [address] [place] [address] 06-08-2023 17:50-0500 Heart rate 65 /min MOY WATTS MD [address] [place] [address] 06-08-2023 14:06-0500 Heart rate 58 /min MOY WATTS MD [address] [place] [address] 06-08-2023 07:05-0500 Mean blood pressure 90 mm[Hg] MOY WATTS MD [address] [place] [address] 06-07-2023 13:36-0500 Body height 176 cm MOY WATTS MD [address] [place] [address] 06-07-2023 13:36-0500 Body weight 152.9 kg MOY WATTS MD [address] 06-07-2023 13:36-0500 Body weight 49.36 kg/m2 MOY WATTS MD [facility] 05-05-2023 20:50-0500 Diastolic Blood Pressure Non-Invasive 79 mm[Hg] DEMI HUSTON MD [facility] 05-05-2023 20:50-0500 Heart rate 84 /min DEMI HUSTON MD [facility] 05-05-2023 20:50-0500 Respiratory rate 20 /min DEMI HUSTON MD [facility] 05-05-2023 20:50-0500 Systolic Blood Pressure Non-Invasive 132 mm[Hg] DEMI HUSTON MD [facility] 05-05-2023 17:16-0500 Body height 175.3 cm DEMI HUSTON MD [facility] 05-05-2023 17:16-0500 Body temperature 97.88 [degF] DEMI HUSTON MD [facility] 05-05-2023 17:16-0500 Body weight 144.4 kg DEMI HUSTON MD [facility] 05-05-2023 17:16-0500 Diastolic Blood Pressure Non-Invasive 88 mm[Hg] DEMI HUSTON MD [facility] 05-05-2023 17:16-0500 Heart rate 68 /min DEMI HUSTON MD [facility] 05-05-2023 17:16-0500 Respiratory rate 20 /min DEMI HUSTON MD [facility] 05-05-2023 17:16-0500 Systolic Blood Pressure Non-Invasive 142 mm[Hg] DEMI HUSTON MD [facility] 02-12-2023 07:06-0400 Body height 175.26 cm [facility] 02-12-2023 07:06-0400 Body mass index (BMI) [Ratio] 49.5 kg/m2 [facility] 02-12-2023 07:06-0400 Body temperature 97.8 [degF] [facility] 02-12-2023 07:06-0400 Body weight 152.1 kg [facility] 02-12-2023 07:06-0400 Diastolic blood pressure 101 mm[Hg] [facility] 02-12-2023 07:06-0400 Heart rate 98 /min [facility] 02-12-2023 07:06-0400 Respiratory rate 16 /min [facility] 02-12-2023 07:06-0400 SaO2% (BldA) [Mass fraction] 95 % [facility] 02-12-2023 07:06-0400 Systolic blood pressure 132 mm[Hg] [facility] 12-23-2022 07:51-0400 Diastolic Blood Pressure Non-Invasive 68 1 MOY WATTS MD [address] [place] [id number] 12-23-2022 07:51-0400 Heart rate 61 /min MOY WATTS MD [address] [place] [address] 12-23-2022 07:51-0400 Respiratory rate 12 /min MOY WATTS MD [address] [place] [id number] 12-23-2022 07:51-0400 Systolic Blood Pressure Non-Invasive 106 1 MOY WATTS MD [address] [place] [address] 12-23-2022 07:39-0400 Diastolic Blood Pressure Non-Invasive 60 1 MOY WATTS MD [address] [place] [id number] 12-23-2022 07:39-0400 Heart rate 64 /min MYO WATTS MD [address] [place] [id number] 12-23-2022 07:39-0400 Respiratory rate 20 /min MOY WATTS MD [address] [place] [address] 12-23-2022 07:39-0400 Systolic Blood Pressure Non-Invasive 97 1 MOY WATTS MD [address] [place] [address] 12-23-2022 07:34-0400 Diastolic Blood Pressure Non-Invasive 59 1 MOY WATTS MD [address] [place] [address] 12-23-2022 07:34-0400 Heart rate 62 /min MOY WATTS MD [facility] 12-23-2022 07:34-0400 Respiratory rate 16 /min MOY WATTS MD [facility] 12-23-2022 07:34-0400 Systolic Blood Pressure Non-Invasive 74 1 MOY WATTS MD [address] [place] [address] 12-23-2022 07:24-0400 Body temperature 97.34 [degF] MOY WATTS MD [address] 12-23-2022 07:20-0400 Heart rate 73 /min MOY WATTS MD [address] [place] [address] 12-23-2022 07:20-0400 Respiratory Rate - Anes 22 br/min MOY WATTS MD [address] 12-23-2022 07:15-0400 Heart rate 91 /min MOY WATTS MD [facility] 12-23-2022 07:15-0400 Respiratory Rate - Anes 18 br/min MOY WATTS MD [facility] 12-23-2022 06:37-0400 Body height 175.3 cm MOY WATTS MD [facility] 12-23-2022 06:34-0400 Body height 175.3 cm MOY WATTS MD [address] [place] [address] 12-23-2022 06:34-0400 Body temperature 95.54 [degF] MOY WATTS MD [facility] 12-23-2022 06:34-0400 Body weight 144 kg MOY WATTS MD [facility] 10-27-2022 06:49-0400 Body temperature 97.7 [degF] DR OLLIE BROOKE MD [facility] 10-27-2022 06:49-0400 Diastolic Blood Pressure Non-Invasive [address] OLLIE BROOKE MD [facility] 10-27-2022 06:49-0400 Heart rate 103 /min DR OLLIE BROOKE MD [facility] 10-27-2022 06:49-0400 Respiratory rate 22 /min DR OLLIE BROOKE MD [facility] 10-27-2022 06:49-0400 Systolic Blood Pressure Non-Invasive [address] OLLIE BROOKE MD [facility] 10-27-2022 06:14-0400 Body temperature 98.06 [degF] DR OLLIE BROOKE MD [facility] 10-27-2022 06:14-0400 Diastolic Blood Pressure Non-Invasive [address] OLLIE BROOKE MD [facility] 10-27-2022 06:14-0400 Heart rate 105 /min DR OLLIE BROOKE MD [facility] 10-27-2022 06:14-0400 Respiratory rate 22 /min DR OLLIE BROOKE MD [facility] 10-27-2022 06:14-0400 Systolic Blood Pressure Non-Invasive [address] OLLIE BROOKE MD [facility] 10-27-2022 05:05-0400 Body height 175.[address] OLLIE BROOKE MD [facility] 10-27-2022 05:05-0400 Body temperature 98.06 [degF] DR OLLIE BROOKE MD [facility] 10-27-2022 05:05-0400 Body weight [address] OLLIE BROOKE MD [facility] 10-27-2022 05:05-0400 Diastolic Blood Pressure Non-Invasive [address] OLLIE BROOKE MD [facility] 10-27-2022 05:05-0400 Heart rate 88 /min DR OLLIE BROOKE MD [facility] 10-27-2022 05:05-0400 Respiratory rate 22 /min DR OLLIE BROOKE MD [facility] 10-27-2022 05:05-0400 Systolic Blood Pressure Non-Invasive [address] OLLIE BROOKE MD [facility] 10-25-2022 01:00-0400 Heart rate 99 /min DEMI HUSTON MD [facility] 10-25-2022 01:00-0400 Systolic Blood Pressure Non-Invasive 139 1 DEMI HUSTON MD [facility] 10-25-2022 00:00-0400 Diastolic Blood Pressure Non-Invasive 94 1 DEMI HUSTON MD [facility] 10-25-2022 00:00-0400 Heart rate 102 /min DEMI HUSTON MD [facility] 10-25-2022 00:00-0400 Respiratory rate 18 /min DEMI HUSTON MD [facility] 10-25-2022 00:00-0400 Systolic Blood Pressure Non-Invasive 132 1 DEMI HUSTON MD [facility] 10-24-2022 23:21-0400 Body height 175.3 cm DEMI HUSTON MD [facility] 10-24-2022 23:21-0400 Body temperature 98.24 [degF] DEMI HUSTON MD [facility] 10-24-2022 23:21-0400 Body weight 139 kg DEMI HUSTON MD [facility] 10-24-2022 23:21-0400 Diastolic Blood Pressure Non-Invasive 99 1 DEMI HUSTON MD [facility] 10-24-2022 23:21-0400 Heart rate 105 /min DEMI HUSTON MD [facility] 10-24-2022 23:21-0400 Respiratory rate 19 /min DEMI HUSTON MD [facility] 10-24-2022 23:21-0400 Systolic Blood Pressure Non-Invasive 146 1 DEMI HUSTON MD [facility] 10-23-2022 10:51-0400 Diastolic blood pressure 76 mm[Hg] [facility] 10-23-2022 10:51-0400 Heart rate 73 /min [facility] 10-23-2022 10:51-0400 Respiratory rate 15 /min [facility] 10-23-2022 10:51-0400 SaO2% (BldA) [Mass fraction] 98 % [facility] 10-23-2022 10:51-0400 Systolic blood pressure 148 mm[Hg] [facility] 10-23-2022 05:58-0400 Body height 175.26 cm [facility] 10-23-2022 05:58-0400 Body mass index (BMI) [Ratio] 47.7 kg/m2 [facility] 10-23-2022 05:58-0400 Body temperature 97.6 [degF] [facility] 10-23-2022 05:58-0400 Body weight 146.8 kg [facility] 07-15-2022 21:40-0500 Diastolic Blood Pressure Non-Invasive 85 1 JEREMIE MCCORMACK MD [facility] 07-15-2022 21:40-0500 Heart rate 72 /min JEREMIE MCCORMACK MD [facility] 07-15-2022 21:40-0500 Respiratory rate 18 /min JEREMIE MCCORMACK MD [facility] 07-15-2022 21:40-0500 Systolic Blood Pressure Non-Invasive 148 1 JEREMIE MCCORMACK MD [facility] 07-15-2022 21:10-0500 Reason For Taking VItal Signs JEREMIE MCCORMACK MD [facility] 07-15-2022 20:42-0500 Body temperature 98.06 [degF] JEREMIE MCCORMACK MD [facility] 07-15-2022 20:42-0500 Diastolic Blood Pressure Non-Invasive 95 1 JEREMIE MCCORMACK MD [facility] 07-15-2022 20:42-0500 Heart rate 81 /min JEREMIE MCCORMACK MD [facility] 07-15-2022 20:42-0500 Respiratory rate 18 /min JEREMIE MCCORMACK MD [facility] 07-15-2022 20:42-0500 Systolic Blood Pressure Non-Invasive 149 1 JEREMIE MCCORMACK MD [facility] 07-11-2022 08:21-0500 Body height 175.3 cm MALORIE PEGUERO MD [facility] 07-11-2022 08:21-0500 Body temperature 97.7 [degF] MALORIE PEGUERO MD [facility] 07-11-2022 08:21-0500 Body weight 148.6 kg MALORIE PEGUERO MD [facility] 07-11-2022 08:21-0500 Diastolic Blood Pressure Non-Invasive 80 1 MALORIE PEGUERO MD [facility] 07-11-2022 08:21-0500 Heart rate 88 /min MALORIE PEGUERO MD [facility] 07-11-2022 08:21-0500 Respiratory rate 24 /min MALORIE PEGUERO MD [facility] 07-11-2022 08:21-0500 Systolic Blood Pressure Non-Invasive 150 1 MALORIE PEGUERO MD [facility] Encounters Encounter Date Encounter Type Care Provider Facility Start: 10-28-2024 ambulatory Isadora Correa NP Facil ity:[facility] Start: 10-24-2024 ambulatory Isadora Correa NP Facil ity:[facility] Start: 10-16-2024 End: 10-23-2024 Evaluation and management of inpatient NANI QUINTANA [facility] Start: 10-16-2024 End: 10-16-2024 Emergency department patient visit JAKE Guo MAXWE[facility] Start: 10-02-2024 End: 10-04-2024 Evaluation and management of inpatient DR ROBERT SCHMITZ MD [facility] Start: 10-02-2024 End: 10-02-2024 Emergency department patient visit DELORES MURO DO [facility] Start: 09-05-2024 ambulatory ISADORA CORREA HSE MANAGER-REFRIGERATION ENGINEER Facility:[facility] Start: 08-29-2024 End: 08-29-2024 Emergency department patient visit CIRILO MEGHANBaljinder STONE Facility[facility] Start: 08-27-2024 End: 08-27-2024 ambulatory ISADORA CORREA HSE MANAGER-REFRIGERATION ENGINEER [facility] Start: 08-13-2024 End: 08-13-2024 Emergency department patient visit DR WILNER JOE MD [facility] Start: 05-14-2024 End: 05-14-2024 ambulatory ISADORA CORREA HSE MANAGER-REFRIGERATION ENGINEER Facility:[facility] Start: 05-14-2024 End: 05-14-2024 Patient encounter procedure ISADORA CORREA HSE MANAGER-REFRIGERATION ENGINEER [facility] Start: 03-25-2024 ambulatory ISADORA CORREA HSE MANAGER-REFRIGERATION ENGINEER [facility] Start: 03-25-2024 End: 03-29-2024 ambulatory HELEN YANES HSE MANAGER-REFRIGERATION ENGINEER [facility] Start: 03-25-2024 End: 03-29-2024 Outreach Lab HELEN YANES HSE MANAGER-REFRIGERATION ENGINEER [facility] Start: 02-16-2024 End: 02-16-2024 ambulatory ISADORA CORREA HSE MANAGER-REFRIGERATION ENGINEER Facility:[facility] Start: 02-16-2024 End: 02-16-2024 Patient encounter procedure ISADORA CORREA HSE MANAGER-REFRIGERATION ENGINEER [facility] Start: 02-12-2024 End: 02-12-2024 ambulatory ISADORA CORREA HSE MANAGER-REFRIGERATION ENGINEER Facility:[facility] Start: 02-12-2024 End: 02-12-2024 Patient encounter procedure ISADORA CORREA HSE MANAGER-REFRIGERATION ENGINEER [facility] Start: 01-31-2024 End: 02-01-2024 Evaluation and management of inpatient ISADORA CORREA Facility:[facility] Start: 01-30-2024 End: 01-31-2024 Emergency department patient visit DR SAMY JONES MD [facility] Start: 10-11-2023 End: 10-11-2023 ambulatory [facility] Start: 08-22-2023 End: 08-22-2023 ambulatory ISADORA CORREA Facility:[facility] Start: 08-22-2023 End: 08-22-2023 Patient encounter procedure ISADORA CORREA HSE MANAGER-REFRIGERATION ENGINEER [facility] Start: 08-09-2023 End: 08-09-2023 Emergency department patient visit DR OLLIE BROOKE MD [facility] Start: 08-08-2023 End: 08-12-2023 ambulatory ISADORA CORREA Facility:[facility] Start: 08-08-2023 End: 08-12-2023 Outreach Lab ISADORA CORREA HSE MANAGER-REFRIGERATION ENGINEER [facility] Start: 08-08-2023 End: 08-08-2023 ambulatory ISADORA CORREA Facility:[facility] Start: 06-13-2023 End: 06-13-2023 Emergency department patient visit DEMI HUSTON MD [facility] Start: 06-07-2023 End: 06-09-2023 Evaluation and management of inpatient MOY WATTS MD [facility] Start: 05-05-2023 End: 05-05-2023 Emergency department patient visit DEMI HUSTON MD [facility] Start: 05-03-2023 ambulatory JAD Coombs Facility:[facility] Start: 04-03-2023 End: 04-03-2023 ambulatory ISADORA CORREA Facility:[facility] Start: 04-03-2023 End: 04-03-2023 Patient encounter procedure JONNY HOFF HSE MANAGER-REFRIGERATION ENGINEER [facility] Start: 03-22-2023 End: 03-22-2023 ambulatory ISADORA CORREA Facility:[facility] Start: 03-14-2023 ambulatory ISADORA CORREA Facility :[facility] Start: 02-22-2023 ambulatory ISADORA CORREA Facility :[facility] Start: 02-12-2023 End: 02-12-2023 Emergency department patient visit [facility] Work Phone: Start: 02-01-2023 End: 02-01-2023 Patient encounter procedure ISADORA CORREA HSE MANAGER-REFRIGERATION ENGINEER [facility] Start: 12-23-2022 End: 12-23-2022 Minor Procedure MOY WATTS MD [facility] Start: 11-11-2022 End: 11-11-2022 Patient encounter procedure MOY WATTS MD [facility] Start: 10-27-2022 End: 10-27-2022 Emergency department patient visit DR OLLIE BROOKE MD [facility] Start: 10-24-2022 End: 10-25-2022 Emergency department patient visit DEMI HUSTON MD [address] [place] [address] Start: 10-23-2022 End: 10-23-2022 Emergency department patient visit [facility] Start: 07-15-2022 End: 07-15-2022 Emergency department patient visit JEREMIE MCCORMACK MD [facility] Start: 07-11-2022 End: 07-11-2022 Emergency department patient visit MALORIE PEGUERO MD [facility] Start: 07-05-2022 End: 07-05-2022 ambulatory [facility] Start: 04-12-2022 End: 04-12-2022 [facility] Start: 03-11-2022 ambulatory [facility] Facility: [facility] Start: 01-12-2022 End: 01-12-2022 ambulatory [facility] Start: 08-24-2021 ambulatory [facility] Start: 08-17-2021 End: 08-18-2021 ambulatory [facility]. Start: 08-02-2021 ambulatory [facility] Procedures Date Procedure Procedure Detail Performing Clinician Start: 03-25-2024 Excision HELEN BALDERAS HSE MANAGER-REFRIGERATION ENGINEER Comment on above: excision of multilob ulated lipomatous mass right forearm Start: 01-31-2024 Echocardiography CHUN CORREA HSE MANAGER-REFRIGERATION ENGINEER Start: 02-12-2023 SARS-CoV-2 & FLU Ant igen (Rapid) Start: 02-12-2023 Viral antigen assay Start: 02-12-2023 Plain chest X-ray Start: 12-23-2022 Cardioversion JAD WATTS MD Start: 11-11-2022 Echocardiography JONNY HOFF HSE MANAGER-REFRIGERATION ENGINEER Comment on above: 1. Left ventricle: T [...] Date Care Activity Detail Author Start: 10-23-2022 [facility] Patient Education [facility] Work Phone: Patient referral [facility] Work Phone: Immunizations Immunization Date Immunization Notes Care Provider Fa cility 04-12-2022 influenza virus vaccine, unspecified formulation MOY WATTS MD [facility] Comment on above: Result Comment: 2023: VIS DATE: 01/01/2021 04-12-2022 pneumococcal conjugate vaccine, 13 valent MOY WATTS MD [facility] Comment on above: Result Comment: 2023: VIS DATE: 07/02/2021 09-11-2020 SARS-CoV-2 (COVID-19 ) mRNA-1273 vaccine MOY WATTS MD [facility] 08-14-2020 SARS-CoV-2 (COVID-19 ) mRNA-1273 vaccine MOY WATTS MD [facility] Payers Date Payer Category Payer Self-pay 2024 Medicaid [id number] 2024 Private Health Insurance 5e [id number] 2023 Medicaid [id number] 1971 Unknown [id number] 2.16.8 40.1.169564.3.579.2.1076 1971 Unknown [id number] 2.16. 840.1.779929.3.579.2.297 1971 Unknown [id number] 2.16.8 40.1.108651.3.579.2.627 1971 Unknown [id number] 2.16.8 40.1.551552.3.579.2.627 1971 Unknown [id number] 2.16.8 40.1.234849.3.579.2.627 1971 Unknown [id number] 2.16.8 40.1.518230.3.579.2.627 1971 Unknown [id number] 2.16.8 40.1.448722.3.579.2.627 1971 Unknown [id number] 2.16.8 40.1.487657.3.579.2.627 1971 Unknown [id number] 2.16.8 40.1.347115.3.579.2.627 1971 Unknown [id number] 2.16.8 40.1.046394.3.579.2.627 1971 Unknown [id number] 2.16.8 40.1.896541.3.579.2.627 1971 Unknown [id number] 2.16.8 40.1.314103.3.579.2.627 1971 Unknown [id number] 2.16.8 40.1.854161.3.579.2.627 1971 Unknown [id number] 2.16.8 40.1.735522.3.579.2.7 1971 Unknown [id number] 2.16.8 40.1.274495.3.579.2. 1971 Unknown [id number] 2.16.8 40.1.036473.3.579.2. 1971 Unknown [id number] 2.16.8 40.1.993309.3.579.2. 1971 Unknown [id number] 2.16.8 40.1.891985.3.579.2. 1971 Unknown [id number] 2.16.8 40.1.160925.3.579.2. 1971 Unknown [id number] 2.16.8 40.1.133636.3.579.2. 1971 Unknown [id number] 2.16.8 40.1.990167.3.579.2. 1971 Unknown [id number] 2.16.8 40.1.222182.3.579.2. 1971 Unknown [id number] 2.16.8 40.1.331684.3.579.2. 1971 Unknown [id number] 2.16.8 40.1.295524.3.579.2. 1971 Unknown [id number] 2.16.8 40.1.100159.3.579.2. 1971 Unknown [id number] 2.16.8 40.1.205998.3.579.2. 1971 Unknown [id number] 2.16.8 40.1.957109.3.579.2. 1971 Unknown [id number] 2.16.8 40.1.640440.3.579.2.651 1971 Unknown [id number] 2.16.8 40.1.955836.3.579.2.627 1971 Unknown [id number] 2.16.8 40.1.045067.3.579.2.627 1971 Unknown [id number] 2.16.8 40.1.985606.3.579.2.627 Unknown [id number] Unknown [id number] 2.16.8 40.1.027037.3.579.2.443 Unknown [id number] 2.16.8 40.1.328521.3.579.2.462 Unknown [id number] 2.16.8 40.1.311127.3.579.2.462 Social History Date Type Detail Facility Start: 07-11-2022 End: 01-12-2024 Tobacco smoking status Ex-smoker (finding) [facility] Start: 1970 Sex Assigned At Male A [facility] Start: 10-23-2022 End: 02-12-2023 Tobacco smoking status [facility] Unknown if ever smoked [facility] Tobacco Nicotine Use: sn uff. Type: Oral (Snuff, Chew). [facility] Comment on above: using NicoDerm patch Stopped chewing snuf f October 2022 Tobacco smoking status [facility] Start: 06-07-2023 End: 08-08-2023 Tobacco smoking status Former smokeless tobacco user, quit more than 30 days ago [facility] Start: 07-11-2022 Sex Male (finding) [facility] Medical Equipment Procedure Code Equipment Code Equipment Origin al Text Equipment Identifier Dates See Instructions , 1 bottle of 100 Test once daily, # 1 EA, 11 Refill(s), Pharmacy: [facility], 177.8, cm, 11/28/23 13:54:00 EDT, Height, 151.4, kg, 11/28/23 13:54:00 EDT, Dosing Weight Start: 12-12-2023 See Instructions , qs 1 month supply Test once daily, # 1 EA, 11 Refill(s), Pharmacy: [facility], 177.8, cm, 11/28/23 13:54:00 EDT, Height, 151.4, kg, 11/28/23 13:54:00 EDT, Dosing Weight Start: 12-12-2023 See Instructions , 1 bottle of 100 Test once daily, # 1 EA, 11 Refill(s), Pharmacy: [facility], 177.8, cm, 11/28/23 13:54:00 EDT, Height, 151.4, kg, 11/28/23 13:54:00 EDT, Dosing Weight Start: 12-12-2023 See Instructions , qs 1 month supply Test once daily, # 1 EA, 11 Refill(s), Pharmacy: [facility], 177.8, cm, 11/28/23 13:54:00 EDT, Height, 151.4, kg, 11/28/23 13:54:00 EDT, Dosing Weight Start: 12-12-2023 See Instructions , 1 bottle of 100 Test once daily, # 1 EA, 11 Refill(s), Pharmacy: [facility], 177.8, cm, 11/28/23 13:54:00 EDT, Height, 151.4, kg, 11/28/23 13:54:00 EDT, Dosing Weight Start: 12-12-2023 See Instructions , qs 1 month supply Test once daily, # 1 EA, 11 Refill(s), Pharmacy: [facility], 177.8, cm, 11/28/23 13:54:00 EDT, Height, 151.4, kg, 11/28/23 13:54:00 EDT, Dosing Weight Start: 12-12-2023 See Instructions , 1 bottle of 100 Test once daily, # 1 EA, 11 Refill(s), Pharmacy: [facility], 177.8, cm, 11/28/23 13:54:00 EDT, Height, 151.4, kg, 11/28/23 13:54:00 EDT, Dosing Weight Start: 12-12-2023 See Instructions , qs 1 month supply Test once daily, # 1 EA, 11 Refill(s), Pharmacy: [facility], 177.8, cm, 11/28/23 13:54:00 EDT, Height, 151.4, kg, 11/28/23 13:54:00 EDT, Dosing Weight Start: 12-12-2023 See Instructions , 1 bottle of 100 Test once daily, # 1 EA, 11 Refill(s), Pharmacy: [facility], 177.8, cm, 11/28/23 13:54:00 EDT, Height, 151.4, kg, 11/28/23 13:54:00 EDT, Dosing Weight Start: 12-12-2023 See Instructions , qs 1 month supply Test once daily, # 1 EA, 11 Refill(s), Pharmacy: [facility], 177.8, cm, 11/28/23 13:54:00 EDT, Height, 151.4, kg, 11/28/23 13:54:00 EDT, Dosing Weight Start: 12-12-2023 See Instructions , 1 bottle of 100 Test once daily, # 1 EA, 11 Refill(s), Pharmacy: [facility], 177.8, cm, 11/28/23 13:54:00 EDT, Height, 151.4, kg, 11/28/23 13:54:00 EDT, Dosing Weight Start: 12-12-2023 See Instructions , qs 1 month supply Test once daily, # 1 EA, 11 Refill(s), Pharmacy: [facility], 177.8, cm, 11/28/23 13:54:00 EDT, Height, 151.4, kg, 11/28/23 13:54:00 EDT, Dosing Weight Start: 12-12-2023 Extremity Nuclear Physicist al Fixator Application L Unknown 10/17/24 Unknown Unknown FDA Start: 10-17-2024 Extremity Nuclear Physicist al Fixator Application L Unknown 10/17/24 Unknown Unknown FDA Start: 10-17-2024 Extremity Nuclear Physicist al Fixator Application L Unknown 10/17/24 Unknown Unknown FDA Start: 10-17-2024 Extremity Nuclear Physicist al Fixator Application L Unknown 10/17/24 Unknown Unknown FDA Start: 10-17-2024 Extremity Nuclear Physicist al Fixator Application L Unknown 10/17/24 Unknown Unknown FDA Start: 10-17-2024 Extremity Nuclear Physicist al Fixator Application L Unknown 10/17/24 Unknown Unknown FDA Start: 10-17-2024 Functional Status Date Assessment Result Facility 10-04-2024 Functional Status Room located n ear nursing station, Door open, Bathroom light on, Non-Slip footwear, Room check performed [facility] 10-04-2024 Functional Status [facility] 10-04-2024 Functional Status [facility] 10-04-2024 Functional Status Breakfast Percent 80 [facility] 10-04-[facility] Functional Status Done [facility] 10-03-2024 Functional Status Sequential Com pression Device bilateral knee high removed/off [facility] 10-02-2024 Functional Status ID band on, Call device within reach, Bed in low position [facility] 02-01-2024 Functional Status Room check performed [facility] 02-01-2024 Functional Status [facility] 02-01-[facility]24 [facility] Functional Status Maintained [facility] 01-31-2024 Functional Status [facility] 01-31-2024 Functional Status 7pm-7am [facility] 01-31-2024 Functional Status Living Situati on Lives with family [facility] 01-31-2024 Functional Status Skin Care Prev entative Intervention(s) heel(s)s elevated, padded oxygen tubing, turn and position system [facility] 01-31-2024 Functional Status [facility] 01-31-2024 Functional Status Independent [facility] 01-30-2024 Functional Status Standard Safet y ID band on, Call device within reach, Bed in low position, Wheels locked, Upper/Half-Length side-rails up, personal items within reach, Bedside Cart Locked, Visitor at bedside [facility] 08-09-2023 Functional Status Awake, Resting [facility] 06-13-2023 Functional Status ID band on, Call device within reach [facility] 06-09-2023 Functional Status Room check performed [facility] 06-09-2023 [facility] Status [facility] 06-09-2023 Functional Status [facility] 06-08-2023 Functional Status Home independe ntly, Lives with significant other [facility] 06-08-2023 Functional Status Skin Care Prev entative Intervention(s) padded oxygen tubing [facility] 06-08-2023 Functional Status bilateral knee high removed/off [facility] 06-07-2023 Functional Status Sensory Deficits None A [facility] 05-05-2023 Functional Status Assistive Device None A [facility] 05-05-2023 Functional Status Standard Safet y ID band on, Call device within reach, Bed in low position, Wheels locked, Visitor at bedside [facility] 12-23-2022 Functional Status Ambulating in room, Awake [facility] 12-23-2022 Functional Status Maintained Larry [facility] 10-27-2022 Functional Status Room check performed [facility] 10-27-2022 Functional Status Larry [facility] 10-25-2022 Functional Status Independent Larry [facility] 10-24-2022 Functional Status Standard Safet y ID band on, Call device within reach, Bed in low position, Wheels locked, Upper/Half-Length side-rails up, personal items within reach, Visitor at bedside [facility] 07-15-2022 Functional Status Room check performed [facility] 07-11-2022 Functional Status [facility] Date Assessment Result Facility 10-04-2024 Mental Status Oriented x 4 [facility] 10-04-2024 Mental Status [facility] 10-04-2024 Mental Status [facility] 10-02-2024 Mental Status Orientation Oriented x 4 [facility] 02-01-2024 Mental Status Orientation Oriented x 4 [facility] 02-01-2024 Mental Status [facility] 01-31-2024 Mental Status [facility] 01-31-2024 Mental Status [facility] 01-30-2024 Mental Status Orientation Oriented x 4 [facility] 08-09-2023 Mental Status Oriented x 4 [facility] 06-13-2023 Mental Status Orientation Oriented x 4 [facility] 06-09-2023 Mental Status Oriented x 4 [facility] 06-09-2023 Mental Status [facility] 06-09-2023 Mental Status [facility] 06-08-2023 Mental Status [facility] 05-05-2023 Mental Status Orientation Oriented x 4 [facility] 05-05-2023 Mental Status [facility] 12-23-2022 Mental Status Oriented x 4 [facility] 10-27-2022 Mental Status Orientation Oriented x 4 [facility] 10-27-2022 Mental Status [facility] 10-25-2022 Mental Status Orientation Oriented x 4 [facility] 10-24-2022 Mental Status [facility] 10-23-2022 Cognitive function Voice/Name [facility] Work Phone: 07-15-2022 Mental Status Oriented x 4 [facility] 07-11-2022 Mental Status Oriented x 4 [facility] Clinical Notes 02-07-2022 to 10-23-2024 Note Date [...] your health care provider approves. Standard walker 1.database support your walker. Do not slide your standard [...] 05/15/2006 Document Revised: 04/10/2019 Document Reviewed: 04/10/2019 [employer] Patient Education 2020 [employer]. 10/23/2024 17:07:24 How to Care for an [...] with a waterproof covering. General instructions Take sksc-clz-btrieir and prescription medicines only as told by [...] 01/25/2012 Document Revised: 07/12/2019 Document Reviewed: 07/15/2019 [employer] Patient Education 2020 [employer]. Follow Up Care 10/16/2024 16:12:44 With:[facility], [facility], Address:Unknown When:1-2 days With:ISADORA CORREA Address: [address] [place] [address] [phone] Business (1) When:1-2 days With:NANI QUINTANA DO, Orthopedic Address: [address] [facility], [place] [address] [phone] When:3-7 days Comments:Please call office SARA to confirm/verify follow up appointment. [facility] 10-23-2024 Note Discharge Instructions Thank you for allowing [facility] to assist you with your healthcare needs. The following is important discharge information regarding your hospital visit. Your Care Team ISADORA CORREA APRN-SHAWN Your Diagnosis Closed displaced bimalleolar fracture of right ankle Post-op pain Shortness of breath What to do next Scheduled Follow-Up Appointments Appointment Type When With Where Contact Information StatusCV OV Hospital Follow Up 11/08/2024 02:30 PM EDT EDY WEBER [facility] CVC Confirmed PC OV 11/12/2024 03:30 PM EDT ISADORA CORREA HSE MANAGER-REFRIGERATION ENGINEER [facility] Confirmed Follow Up Appointments Follow Up with [facility], skilled, When:Within 1-2 days Follow Up with ISADORA CORREA When:Within 1-2 days Where:[address] [facility] [place] [address]- [phone] Business (1) Follow Up with NANI QUINTANA DO, Orthopedic When:Within 3-7 days Where:[address] [facility], [place] [address]- [phone] Additional Information: Please call office SARA to [...] Post-op pain Duration: 7 Days Pickup at [facility]/pharmacy #[id number] Unchanged albuterol (albuterol 2.5 mg/ 3 mL [...] by mouth Daily at bedtime Pharmacy Information [facility]/pharmacy #[id number]: [address], [place] [phone] Please take this list to your next [...] may report side effects to FDA at [phone]-XCC-3272. What other drugs will affect acetaminophen and [...] affect acetaminophen and oxycodone, including prescription and augs-rin-qcoodsy medicines, vitamins, and herbal products. Not all [...] to ensure that the information provided by [facility]. ('[employer]') is accurate, up-to-date, and complete, but no guarantee is made to that effect. Drug information contained herein may be time sensitive. [employer] information has been compiled for use by healthcare practitioners and consumers in the [place] and therefore [employer] does not warrant that uses outside of the [place] are appropriate, unless specifically indicated otherwise. [employer] drug information does not endorse drugs, diagnose patients or recommend therapy. [employer] drug information is an informational resource designed [...] effective or appropriate for any given patient. [employer] does not assume any responsibility for any aspect of healthcare administered with the aid of information [employer] provides. The information contained herein is not intended to cover all possible uses, directions, precautions, warnings, drug interactions, allergic reactions, or adverse effects. If you have questions about the drugs you are taking, check with your doctor, nurse or pharmacist. Copyright 5470-1111 [facility]. Version: 22.. Revision Date: 12/29/2022. Education Materials [...] health care provider approves. Standard walker 1. database support your walker. Do not slide your standard [...] 05/15/2006 Document Revised: 04/10/2019 Document Reviewed: 04/10/2019 Idylis Patient Education 2020 [employer]is Inc. How to Care for an External [...] with a waterproof covering. General instructions Take jacj-sci-dhhdxxf and prescription medicines only as told by [...] 01/25/2012 Document Revised: 07/12/2019 Document Reviewed: 07/15/2019 [employer] Patient Education 2020 [employer] Inc. Additional Information VACCINATE! IT SAVES LIVES! Members of the community who have not yet received the COVID-19 vaccine and would like to receive it can visit one of [place] vaccine clinics. There are many vaccine clinic locations within the [facility]. For locations and available times, please visit https://gettheshot.coronavirus.o hio.gov/. It is important to note that some COVID mobile vaccine clinics are held outdoors and may be canceled in rainy or stormy conditions. To learn more about pediatric vaccinations (ages 5-11), we invite you to visit the [facility] webpage. https://www.[facility].org/p ages/7562-Zgxen-Hmushyqzjbm-Freq pyxckx-Leqsg-Pxaawnmej.html To learn more about the COVID-19 vaccine, we invite you to visit the CDC website for a list of frequently asked questions.https://www.cdc.gov/co ronavirus/2019-ncov/vaccines/faq .html Out[facility] Patient Portal Access Instructions: Stay connected with your healthcare team and access your personal medical information anytime with the Outlisten Patient Portal. Please follow the directions below to create your [facility] account: 1.Access the email account you provided upon registration to the hospital/physician office.2.Look for an invitation email from [facility].3.Open the email and access the invitation link: Accept Invitation to [facility].4.Fill in the required orr to create your account. To access your account, visit [email or web address]. Click the blue button labeled Access Patient [...] you will allow to register on the [facility] Patient Portal for access to your information. You can also access the [facility] Patient Portal on the [facility] [employer] frida. Simply click on Patient Portal and then log into your account. If you would like to receive a full copy of your medical records, please contact the [facility] Medical Records Department by calling [phone], Monday through Monday between 8 a.m. and [...] Call your local pharmacy or go to http://bit.ly/4U8Qx8g to find one close to you.3.Make use of household items: Use cat litter or old coffee grounds to dispose medications if other options are not available. Mix your drugs with these household products, seal them in an airtight container and throw it into the garbage. Call [facility]: [phone] to be sure your drugs can be [...] aware that I should contact my doctor. 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: Relationship to Patient: Witness Name/Signature: Date/Time: [facility] 10-23-2024 Note Discharge Instructions Thank you for [...] Up 11/08/2024 02:30 PM EDT EDY WEBER [facility] CVC Confirmed PC OV 11/12/2024 03:30 PM EDT ISADORA CORREA [facility] Confirmed Follow Up Appointments Follow Up with [facility], [facility], When:Within 1-2 days Follow Up with ISADORA CORREA When:Within 1-2 days Where:[address] [place] [address]- [phone] Business (1) Follow Up with NANI QUINTANA DO, Orthopedic When:Within 3-7 days Where:[address] [facility], [place] [address]- [phone] Additional Information: Please call office SARA to [...] Post-op pain Duration: 7 Days Pickup at [facility]/pharmacy #[id number] Unchanged albuterol (albuterol 2.5 mg/ 3 mL [...] by mouth Daily at bedtime Pharmacy Information [facility]/pharmacy #[id number]: [address], [place] [phone] Please take this list to your next [...] to receive it can visit one of [place] vaccine clinics. There are many vaccine clinic locations within the [facility]. For locations and available times, please visit https://gettheshot.coronavirus.o uto.gov/. It is important to note that some COVID mobile vaccine clinics are held outdoors and may be canceled in rainy or stormy conditions. To learn more about pediatric vaccinations (ages 5-11), we invite you to visit the [facility] webpage. https://www.Hardscore Gamess.org/p ages/1247-Hdcjq-Pnekttvaazu-Freq nglsko-Kkaet-Ldqkbegzo.html To learn more about the COVID-19 vaccine, we invite you to visit the CDC website for a list of frequently asked questions.https://www.cdc.gov/co ronavirus/2019-ncov/vaccines/faq .html Outlisten Patient Portal Access Instructions: Stay connected with your healthcare team and access your personal medical information anytime with the Out[facility] Patient Portal. Please follow the directions below to create your Outlisten account: 1.Access the email account you provided upon registration to the hospital/physician office.2.Look for an invitation email from [facility].3.Open the email and access the invitation link: Accept Invitation to Outlisten.4.Fill in the required orr to create your account. To access your account, visit Leveler/[facility]ong[employer] [employer]. Click the blue button labeled Access Patient [...] you will allow to register on the [facility] Patient Portal for access to your information. You can also access the [facility] Patient Portal on the [facility] frida. Simply click on Patient Portal and then log into your account. If you would like to receive a full copy of your medical records, please contact the [facility] Medical Records Department by calling [phone], Monday through Monday between 8 a.m. and [...] Call your local pharmacy or go to http://WildBlue/1X2Ai6j to find one close to you.3.Make use of household items: Use cat litter or old coffee grounds to dispose medications if other options are not available. Mix your drugs with these household products, seal them in an airtight container and throw it into the garbage. Call [facility]: [phone] to be sure your drugs can be [...] aware that I should contact my doctor. 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 Walking boot in place when patient is ambulating - Motor: Hip flexion/extension, quadriceps, hamstrings, gastruc/soleus, EHL/FHL intact. - DP and PT pulse 2+. Foot warm and perfused. BCR - Sensation grossly intact L2-S2: obturator, femoral, LCN, DPN, SPN, sural, saphenous, M/ONLINE FACILITATOR - Calf soft and non-tender Weight Dosing [...] TARA MISHRA DO on 10/23/2024 07:03 AM [facility] 10-23-2024 Orthopaedic surgery Progress note Date of [...] obturator, femoral, LCN, DPN, SPN, sural, saphenous, M/ONLINE FACILITATOR - Calf soft and non-tender Left Lower Extremity - No pain to left lower extremity. Walking boot in place when patient is ambulating - Motor: Hip flexion/extension, quadriceps, hamstrings, gastruc/soleus, EHL/FHL intact. - DP and PT pulse 2+. Foot warm and perfused. BCR - Sensation grossly intact L2-S2: obturator, femoral, LCN, DPN, SPN, sural, saphenous, M/ONLINE FACILITATOR - Calf soft and non-tender Weight Dosing [...] TARA MISHRA DO on 10/23/2024 07:03 AM [facility] 10-22-2024 Orthopaedic surgery Progress note Date of [...] obturator, femoral, LCN, DPN, SPN, sural, saphenous, M/ONLINE FACILITATOR - Calf soft and non-tender Left Lower Extremity - No pain to left lower extremity. Walking boot in place when patient is ambulating - Motor: Hip flexion/extension, quadriceps, hamstrings, gastruc/soleus, EHL/FHL intact. - DP and PT pulse 2+. Foot warm and perfused. BCR - Sensation grossly intact L2-S2: obturator, femoral, LCN, DPN, SPN, sural, saphenous, M/ONLINE FACILITATOR - Calf soft and non-tender Weight Dosing [...] TARA MISHRA DO on 10/22/2024 05:51 AM [facility] 10-22-2024 Orthopaedic surgery Progress note Date of [...] obturator, femoral, LCN, DPN, SPN, sural, saphenous, M/ONLINE FACILITATOR - Calf soft and non-tender Left Lower Extremity - No pain to left lower extremity. Walking boot in place when patient is ambulating - Motor: Hip flexion/extension, quadriceps, hamstrings, gastruc/soleus, EHL/FHL intact. - DP and PT pulse 2+. Foot warm and perfused. BCR - Sensation grossly intact L2-S2: obturator, femoral, LCN, DPN, SPN, sural, saphenous, M/ONLINE FACILITATOR - Calf soft and non-tender Weight Dosing [...] TARA MISHRA DO on 10/22/2024 05:51 AM [facility] 10-21-2024 Orthopaedic surgery Progress note Date of [...] SANDRA GARCIA DO on 10/21/2024 10:00 AM [facility] 10-21-2024 Orthopaedic surgery Progress note Date of [...] SANDRA GARCIA DO on 10/21/2024 10:00 AM [facility] 10-18-2024 Pastoral care Progress note Pastoral Care [...] Pastoral Care Visit Length : 15 minute(s) Sanjya Lucas - 10/18/2024 16:50 EDT Digitally Signed by Sanjay Lucas on 10/18/2024 04:50 PM [facility] 10-18-2024 Note PIN care completed by bedside RN. Ortho approved protocol orders for care daily. Digitally Signed by SHAHEEN Lou on 10/18/2024 01:37 PM [facility] 10-18-2024 Note Date of Service 10/18/2024 Chief [...] by GROVER HOFFMAN on 10/18/2024 01:11 PM [facility] 10-17-2024 Note Exam Date Time Procedure Performing Provider Status 10/17/24 1:14 PM XR Fluoro 1-2 Hrs Tech Time KAILEY WAHL DO; Auth (Verified) [id number] ORIGINAL EXAMINATION: TAD MD - > 1 HR TECHNIQUE: Total fluoro time is 43.2 seconds. Total exposure is 2.0531 mGy. COMPARISON: CT ankle 10/17/2024, x-ray ankle 10/16/2024. HISTORY: ORDERING SYSTEM PROVIDED HISTORY: Reason for Exam: RIGHT ANKLE FX FINDINGS: Intraoperative fluoroscopic images from external surgical fixation of a distal fibular fracture. IMPRESSION: Intraoperative fluoroscopic images. Please refer to the granulating machine operator's report for further information. I have personally reviewed the images of this examination and agree with the resident's findings and interpretation. Interpreted by: Corey Wahl Preliminary Report By: Nadya Hudson Electronically signed By Corey Wahl Dictated Date: 10/17/2024 1:42:02 PM Prelim Date: 10/17/2024 2:15:08 PM Sign Date: 10/17/2024 2:15:08 PM Ordering Provider: [facility]TANA [id number] Note Date of Service 10/17/2024 Chief Complaint Medical management Subjective This 54-year-old white male with a past medical history of type 2 diabetes mellitus, hypertension, COPD, HFpEF, anxiety, atrial fibrillation on Xarelto and Tikosyn presented to [facility] aftermechanical fall and subsequent ankle pain. Patient [...] by GROVER HOFFMAN on 10/17/2024 12:52 PM [id number] Anesthesiology Consult note Patient: SOCORRO KELLEY Age: [...] Monitored 80 bpm Respiratory Rate 22 br/min OK 10/16/2024 23:45 EDT Systolic Blood Pressure Non-Invasive [...] EDT Systolic Blood Pressure Non-Invasive 147 mmHg OK Diastolic Blood Pressure Non-Invasive 81 mmHg Mean Arterial Pressure (NBP) 103 mmHg 10/16/2024 18:15 EDT Heart Rate Monitored 63 bpm Respiratory Rate 12 br/min [facility] 10/16/2024 18:15 EDT Systolic Blood Pressure Non-Invasive [...] CHANTAL WHEATLEY DO on 10/17/2024 11:13 AM [id number] Note* Exam Date Time Procedure Performing Provider Status 10/17/24 10:[address] Ankle w/o Contrast Right KATHY REVELES MD; Auth (Verified) [id number] ORIGINAL EXAMINATION: CT OF THE RIGHT ANKLE [...] spanning external fixator, multiplanar 10/17. transfer from [facility]. for right ankle fracture with dislocation. [...] 10/17/2024 1:17:29 PM Ordering Provider: TARA MISHRA [facility] [id number] History and physical note Date of Service 10/16/2024 Chief Complaint Pt here from [facility] via squad after a mechanical fall causing a fracture to his right ankle. They splinted it in their ED and sent to [facility] for surgical consult. History of Present Illness Patient is a 54-year-old male who presents to the [facility] emergency department as a transfer from [facility] for his right ankle fracture. Patient [...] Blood, q24h, for 5 day(s), Preferred Lab: [facility], Stop date 10/20/24 22:00:00 EDT Bedrest, 10/16/24 [...] q24h, for 5 day(s), Preferred Lab: [facility], Stop date 10/20/24 22:00:00 EDT Complete Metabolic Panel(CMP), 10/16/24:21:00 EDT, URGENT (collect within 2 hrs), Blood, Once, Nurse Collect, Preferred Lab: [facility], Stop date 10/16/24 21:37:00 EDT Consult to Physician, 10/16/24 21:21:00 EDT, HOSPITALISTLARRY (For Consultation Assignment OnlyNO other Orders), Routine, medical clearance, follow medically Diet Order, 10/16/24:21:00 EDT, Start Meal: Next meal, Regular, Constant Order, : N/A, : N/A Electrocardiogram(EKG), 10/16/24 21:21:00 EDT, Complete by Nursing Incentive Spirometer, 10/16/24:21:00 EDT, [id number] Intake and Output, 10/16/24 21:21:00 EDT, q8h (2p, 10p, 6a) IV Catheter Insertion/Care(Peripheral IV Insertion/Care), 10/16/24 21:21:00 EDT, IV Care: Once, 18 gauge angiocath, if possible Pulse Oximeter - Intermittent, 10/16/24 21:21:00 EDT, AsDirected, PRN order, On admission and as indicated Type and Screen, 10/16/24 21:21:00 EDT, URGENT (collect within 2 hrs), Blood, Once, Nurse Collect, Preferred Lab: [facility], Stop date 10/16/24 21:21:00 EDT Vital Signs, [...] RIC ARELLANO DO on 10/16/2024 09:43 PM [facility] [id number] Anesthesiology Consult note Patient: SOCORRO KELLEY Age: [...] list: Medical Asthma exacerbation / SNOMED CT 3184087255 / Confirmed COPD exacerbation / SNOMED CT 2481168124 / Confirmed Atopic dermatitis / SNOMED CT 93334480 / Confirmed Atypical chest pain / SNOMED CT 048972179 / Confirmed Morbid obesity with BMI of 40.0-44.9, adult / SNOMED CT 2359233409 / Confirmed Bronchitis / SNOMED CT 54078444 / Confirmed Cardiomyopathy / SNOMED CT 320480193 / Confirmed CHF with cardiomyopathy / SNOMED CT 93267805 / Confirmed Cough / SNOMED CT 68446455 / Confirmed Dental abscess / SNOMED CT 894980334 / Confirmed Depression / SNOMED CT 76622280 / Confirmed Dyspnea / SNOMED CT 037845116 / Confirmed Generalized anxiety disorder / SNOMED CT 35391347 / Confirmed Hypertension associated with type 2 diabetes mellitus / SNOMED CT 8123520965 / Confirmed Insomnia / SNOMED CT 158527902 / Confirmed LVH (left ventricular hypertrophy) / SNOMED CT 70438244 / Confirmed Moderate asthma / SNOMED CT 3786742853 / Confirmed Near syncope / SNOMED CT 9068992646 / Confirmed Chewing tobacco nicotine dependence / SNOMED CT 97472655 / Confirmed KOFFI (obstructive sleep apnea) / SNOMED CT 856928717 / Confirmed Right knee pain / SNOMED CT 8030707513 / Confirmed Paroxysmal atrial fibrillation / SNOMED CT 861725613 / Confirmed Screening for ischemic heart disease / SNOMED CT 592530969 / Confirmed Screening for colon cancer / SNOMED CT 652726830 / Confirmed Statin intolerance / SNOMED CT 8037049280 / Confirmed Tachyarrhythmia / SNOMED CT 02235210 / Confirmed Type 2 diabetes mellitus with hemoglobin A1c goal of less than 7.0% / SNOMED CT 816325926 / Confirmed Type 2 diabetes mellitus with hyperlipidemia / SNOMED CT 013948400 / Confirmed, Active Problems (32) Asthma exacerbation [...] Histories Past Medical History: Resolved Morbid obesity (509689996): Resolved. Diabetes mellitus (196313127): Resolved. Hypertension (9587735496): Resolved. BMI 45.0-49.9, adult (9991231653): Resolved. Anxiety (38385895): Resolved. Prediabetes (8702842478): Resolved. Obstructive sleep apnea (240230712): Resolved. Right flank pain (294472565): Resolved. Hyperlipidemia (47381772): Resolved. Mass of arm (464829902): Resolved. Family History: Cancer Father Heart disease Mother Grandparent Stroke Father Procedure history: Excision ([id number]) on 03/25/2024 at 53 Years. Comments: 03/26/2024 7:50 Karol Curry LPN excision of multilobulated lipomatous mass right forearm Echocardiogram ([id number]) on 01/31/2024 at 53 Years. Cardioversion ([id number]) on 12/23/2022 at 52 Years. Echocardiogram ([id number]) on 11/11/2022 at 52 Years. Comments: 03/20/2023 [...] right atrial pressure is 15 mm Hg [facility] ([id number]). Comments: 07/11/2022 8:26 SHAHEEN Nunez - right [...] Temp Oral36.7 DegC (OCTOBER 17:12) Heart Rate Dbyocixnd34 bpm (OCTOBER 17 00:00) ECK605 mmHg (OCTOBER 17:12) DBP82 mmHg (OCTOBER 17:12) BMI44.92 (OCTOBER 17:29) Measurements from flowsheet : Measurements 10/17/2024 1:29 EDT Height 177.8 cm Height in inches 70 inch(es) Admission Weight 142 kg Weight Lbs 312.4 lb [place] Body Weight 73.00 kg Type of Scale [...] PRN medication effectiveness Partial Nail Bed Color [place] Capillary Refill < 2 seconds Dorsalis Pedis Pulse, Left 2+ Normal Radial Pulse, Left 2+ Normal Radial Pulse, Right 2+ Normal Respirations Unlabored Respiratory Pattern Regular All Lobes Breath Sounds Clear Abdomen Description Non-distended, Rounded Abdomen Palpation Non-Tender Passing Flatus Yes Bowel Sounds All Quadrants Present Skin Description [place], Dry Skin Temperature Warm Skin Integrity Pressure points intact Skin Turgor Elastic All Extremity Description [place], Normal for ethnicity Temperature All Extremities Warm Mucous Membrane Color [place] Mucous Membrane Description Moist Ankle Right Incision, Wound Dressing/Activity: Assessed Incision, Wound Dressing: Elastic wrap bandage Wound Associated Pain: With activity, mobilization Buttock Inferior, Inner Skin Abnormality Type: Non-pressure ulcer Skin Abnormality Color: [place], Red Incision, Wound Surrounding Tissue: Normal skin [...] #1 We May Share PHI MARILYN OSPINA [phone] Designated Person #1 Relationship Sibling Designated Person #2 We May Share PHI Designated Person #2 We May Share PHI Privacy Restrictions Requested None Height 177.8 cm Height in inches 70 inch(es) Admission Weight 142 kg Weight Lbs 312.4 lb [place] Body Weight 73.00 kg Type of Scale [...] evident Teaching Method Explanation Preferred Spoken Language Namibian Preferred Written Language Namibian Disease Process General Education Signs/Symptoms to report, [...] 10/16/2024 16:28 EDT Status N/A [facility] 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 They splinted it in their ED and sent to [place] for surgical consult. Place Where Injury/Illness Occurred Other: [facility] Anticoagulants Taken In Past 6 Wks. [...] Non-distended, Symmetric Abdomen Palpation Non-Tender Skin Description [place], Normal for ethnicity, Dry Skin Temperature Warm Mucous Membrane Color [place] Mucous Membrane Description Moist Neurological Symptoms Patient denies Level of Consciousness Alert Eye Opening Response Luis Felipe Spontaneously Best Motor Response Vancleave Obeys simple commands Best Verbal Response Luis Felipe Oriented [place]ancleave Coma Score 15 CLARA Yes Left Upper [...] No Weight Loss No Preferred Spoken Language Namibian Preferred Written Language Namibian Tracking Group ED Tracking Group Tracking Acuity 3 ED Diabetic Patient No Mode of Transfer Ground ambulance Amb[facility] Positioning Repositions self Standard Safety ID [...] ED Triage Adults . Assessment and Plan [place] [employer] Anesthesiologists (ASA) physical status classification: [...] diabetes mellitus with hyperlipidemia Historical Anxiety Diabetes [facility] Hyperlipidemia Hypertension Mass of arm Obstructive sleep apnea Prediabetes Right flank pain . Digitally Signed by MELISSA MARIN MD on 10/17/2024 06:21 AM Digitally Signed by DELORES BRAVO on 10/17/2024 07:17 AM [id number] Note Date of Service October 16, 2024 [...] vaccine: 0 unknown unit (09/11/20) SARS-CoV-2 (COVID-19) mRNA-127 vaccine: 0 unknown unit (08/14/20) Digitally Signed by KARLENE BARCENAS DO on 10/16/2024 10:38 PM [facility] [id number] Note* Exam Date Time Procedure Performing Provider Status 10/16/24 10:24 PM Electrocardiogram - EKG - CV SA SULY PAULINO MD; Auth (Verified) ECG Final Report SINUS RHYTHM LEFT ANTERIOR FASCICULAR BLOCK LOW VOLTAGE, PRECORDIAL LEADS Electronic Signature: ALIZA PAULINO MD 10/17/2024 18:58:09 [facility] [id number] Note* Exam Date Time Procedure Performing Provider Status 10/16/24 10:07 PM XR Ankle Minimum 3 Views Left TRACE ROUSE MD; Auth (Verified) [id number] ORIGINAL EXAMINATION: THREE XRAY VIEWS OF THE [...] 10/16/2024 10:39:42 PM Ordering Provider: RIC ARELLANO [facility] [id number] History and physical note Date of Service 10/16/2024 Chief Complaint Pt here from [facility] via squad after a mechanical fall causing a fracture to his right ankle. They splinted it in their ED and sent to [place] for surgical consult. History of Present Illness Patient is a 54-year-old male who presents to the [facility] emergency department as a transfer from [facility] for his right ankle fracture. Patient [...] Blood, q24h, for 5 day(s), Preferred Lab: [facility], Stop date 10/20/24 22:00:00 EDT Bedrest, 10/16/24 [...] Blood, q24h, for 5 day(s), Preferred Lab: [facility], Stop date 10/20/24 22:00:00 EDT Complete Metabolic Panel(CMP), 10/16/24 21:21:00 EDT, URGENT (collect within 2 hrs), Blood, Once, Nurse Collect, Preferred Lab: [facility], Stop date 10/16/24 21:37:00 EDT Consult to Physician, 10/16/24 21:21:00 EDT, HOSPITALISTLARRY (For Consultation Assignment OnlyNO other Orders), Routine, medical clearance, follow medically Diet Order, 10/16/24 21:21:00 EDT, Start Meal: Next meal, Regular, Constant Order, : N/A, : N/A Electrocardiogram(EKG), 10/16/24 21:21:00 EDT, Complete by Nursing Incentive Spirometer, 10/16/24 21:21:00 EDT, [id number] Intake and Output, 10/16/24 21:21:00 EDT, q8h (2p, 10p, 6a) IV Catheter Insertion/Care(Peripheral IV Insertion/Care), 10/16/24 21:21:00 EDT, IV Care: Once, 18 gauge angiocath, if possible Pulse Oximeter - Intermittent, 10/16/24 21:21:00 EDT, AsDirected, PRN order, On admission and as indicated Type and Screen, 10/16/24 21:21:00 EDT, URGENT (collect within 2 hrs), Blood, Once, Nurse Collect, Preferred Lab: [facility], Stop date 10/16/24 21:21:00 EDT Vital Signs, [...] RIC ARELLANO DO on 10/16/2024 09:43 PM [facility] [id number] Note* Exam Date Time Procedure Performing Provider Status 10/16/24 8:42 PM XR Ankle Minimum 3 Views Right TRACE ROUSE MD; Auth (Verified) [id number] ORIGINAL EXAMINATION: THREE XRAY VIEWS OF THE [...] 10/16/2024 9:20:54 PM Ordering Provider: RIC ARELLANO [facility] [id number] Note* Exam Date Time Procedure Performing Provider Status 10/16/24 7:09 PM XR Ankle Minimum 3 Views Right TRACE ROUSE MD; Auth (Verified) [id number] ORIGINAL EXAMINATION: THREE XRAY VIEWS OF THE [...] 10/16/2024 7:53:07 PM Ordering Provider: EM GARCIA [facility] [id number] Note* Exam Date Time Procedure Performing Provider Status 10/16/24 5:43 PM XR Ankle Minimum 3 Views Right TRACE ROUSE MD; Auth (Verified) [id number] ORIGINAL EXAMINATION: THREE XRAY VIEWS OF THE [...] Sign Date: 10/16/2024 6:28:12 PM Ordering Provider: [facility]05-21-2025 Evaluation + Plan noteExtracted from: Title:Ortho History [...] q24h, for 5 day(s), Preferred Lab: [facility], Stop date 10/20/24 22:00:00 EDT [...] Blood, q24h, for 5 day(s), [facility], Stop date 10/20/24 22:00:00 EDT Complete Metabolic Panel(CMP), 10/16/24 21:21:00 EDT, URGENT (collect within 2 hrs), Blood, Once, Nurse Collect, Preferred Lab: [facility], Stop date 10/16/24 21:37:00 EDT Consult to Physician, 10/16/24 21:21:00 EDT, HOSPITALISTLARRY (For Consultation Assignment Only NO other Orders), Routine, medical clearance, follow medically Diet Order, 10/16/24 21:21:00 EDT, Start Meal: Next meal, Regular, Constant Order, : N/A, : N/A Electrocardiogram(EKG), 10/16/24 21:21:00 EDT, Complete by Nursing Incentive Spirometer, 10/16/24 21:21:00 EDT, [id number] Intake and Output, 10/16/24 21:21:00 EDT, q8h (2p, 10p, 6a) IV Catheter Insertion/Care(Peripheral IV Insertion/Care), 10/16/24 21:21:00 EDT, IV Care: Once, 18 gauge angiocath, if possible Pulse Oximeter - Intermittent, 10/16/24 21:21:00 EDT, AsDirected, PRN order, On admission and as indicated Type and Screen, 10/16/24 21:21:00 EDT, URGENT (collect within 2 hrs), Blood, Once, Nurse Collect, Preferred Lab: [facility], Stop date 10/16/24 21:21:00 EDT Vital Signs, [...] Appointment Date:11/08/2024 02:30:00 PM Scheduled Provider:[facility] WEBER [facility] Type[facility]CV OV Hospital Follow Up Appointment Date:11/12/2024 03:30:00 PM Scheduled Provider:ISADORA CORREA Location:[facility] Appointment Type:PC OV Future Scheduled Tests Laboratory* Basic Metabolic Panel 02/07/24 * Basic Metabolic Panel 12/10/24 * Basic Metabolic Panel 02/19/24 * Magnesium Level 02/07/24 * Complete Blood Count 08/27/24 * Complete Metabolic Panel 08/27/24 * N-Terminal proBNP 08/27/24 [facility] 05-09-2025 Hospital Discharge instructions Patient Education 10/04/2024 [...] Slowly return to your usual activities. Take gaii-smp-ziovinw and prescription medicines only as told by [...] 02/07/2002 Document Revised: 10/15/2018 Document Reviewed: 10/15/2018 [employer] Patient Education 2020 [employer] 10/04/2024 21:03:30 Pursed Lip Breathing Pursed [...] exercise. Follow these instructions at home: Take tkwu-csl-nxgfxle and prescription medicines only as told by [...] 02/21/2009 Document Revised: 04/27/2018 Document Reviewed: 04/06/2017 [employer] Patient Education 2020 [employer]. 10/04/2024 21:03:27 Cough, Adult Cough, Adult Coughing [...] Follow these instructions at home: Medicines Take zxhr-okk-ivnphzr and prescription medicines only as told by [...] of a condition that needs treatment. Take ywit-hlr-oyagvov and prescription medicines only as told by [...] 11/11/2011 Document Revised: 06/03/2019 Document Reviewed: 06/03/2019 [employer] Patient Education 2020 [employer]. Follow Up Care 10/02/2024 02:08:49 With:readmission score is 13 Address:Unknown When: Unknown With:ISADORA CORREA Address: [address] [place] [phone] Business (1) When:1-2 days [facility] 05-09-2025 Note Discharge Instructions Thank you for allowing [facility] to assist you with your healthcare needs. The following is importantdischarge information regarding your hospital visit. Your Care Team ISADORA CORREA Your Diagnosis Shortness of breath What to do next Scheduled Follow-Up Appointments Appointment Type When With Where Contact Information StatusPC OV 10/23/2024 04:00 PM EDT ISADORA CORREA [facility] [phone] Confirmed CV OV Hospital Follow Up 11/08/2024 02:30 PM EDT EDY WEBER [facility] Confirmed Follow Up Appointments Follow Up with readmission score is 13 Follow Up with ISADORA CORREA When:Within 1-2 days Where:[address] [place] [facility] [place] [address] [phone] Business (1) The Following Activity and Diet [...] within 14 days after discharge, please call [facility] at [phone]. Post Acute Orders No qualifying data available. [...] a day Take with food Pickup at [facility]/pharmacy #[id number] Unchanged acetaminophen (Tylenol) by mouth As needed [...] Two (2) times a day Pickup at [facility]/pharmacy #[id number] Unchanged dulaglutide (Trulicity Pen 1.5 mg/ [...] by mouth Daily at bedtime Pickup at [facility]/pharmacy #[id number] Unchanged spironolactone (spironolactone 25 mg oral tablet) 1 tab(s) by mouth Once a day Duration: 90 Days Unchanged tiZANidine (tiZANidine 2 mg oral tablet) 1 tab(s) by mouth Every 8 hours as needed for as needed for muscle spasm Duration: 7 Days Unchanged traZODone (traZODone 100 mg oral tablet) 1 tab(s) by mouth Daily at bedtime Pharmacy Information [facility]/pharmacy #[id number]: [address], [place] [phone] Please take this list to your next [...] may report side effects to FDA at 8-379-LVW-7974. What other drugs will affect hydroxyzine? Taking [...] may interact with hydroxyzine, including prescription and azby-lgb-fybkqhz medicines, vitamins, and herbal products. Not all [...] to ensure that the information provided by [employer]. ('[employer]') is accurate, up-to-date, and complete, but no guarantee is made to that effect. Drug information contained herein may be time sensitive. [employer] information has been compiled for use by healthcare practitioners and consumers in the [place] and therefore [employer] does not warrant that uses outside of the [place] are appropriate, unless specifically indicated otherwise. [employer] drug information does not endorse drugs, diagnose patients or recommend therapy. [employer] drug information isan informational resource designed to [...] effective or appropriate for any given patient. [employer] does not assume any responsibility for any aspect of healthcare administered with the aid of information [employer] provides. The information contained herein is not intended to cover all possible uses, directions, precautions, warnings, drug interactions, allergic reactions, or adverse effects. If you have questions about the drugs you are taking, check with your doctor, nurse or pharmacist. Copyright [id number] [employer]. Version: 8.01. Revision Date: 08/10/2016. furosemide (oral/injection) [...] blood pressure, such as diet pills or awbwf-wqq-njdx medicine. What are the possible side effects [...] may report side effects to FDA at 3-617-DJB-5706. What other drugs will affect furosemide? Sometimes [...] drugs may affect furosemide, including prescription and uyyy-bki-efurghy medicines, vitamins, and herbal products. Not all [...] to ensure that the information provided by [employer]. ('[employer]') is accurate, up-to-date, and complete, but no guarantee is made to that effect. Drug information contained herein may be time sensitive. [employer] information has been compiled for use by healthcare practitioners and consumers in the [place] and therefore [employer] does not warrant that uses outside of the [place] are appropriate, unless specifically indicated otherwise. [employer] drug information does not endorse drugs, diagnose patients or recommend therapy. [employer] drug information isan informational resource designed to [...] effective or appropriate for any given patient. [employer] does not assume any responsibility for any aspect of healthcare administered with the aid of information [employer] provides. The information contained herein is not intended to cover all possible uses, directions, precautions, warnings, drug interactions, allergic reactions, or adverse effects. If you have questions about the drugs you are taking, check with your doctor, nurse or pharmacist. Copyright [id number] [employer]. Version: .. Revision Date: 11/07/2023. cetirizine (oral/injection) [...] may report side effects to FDA at 4-736-LGO-0245. What other drugs will affect cetirizine? Using cetirizine with other drugs that make you drowsy can worsen this effect. Ask your doctor before using opioid medication, a sleeping pill, a muscle relaxer, or medicine for anxiety or seizures. Other drugs may affect cetirizine, including prescription and cpty-uvz-tzjampy medicines, vitamins,and herbal products. Tell your doctor [...] to ensure that the information provided by [employer]. ('[employer]') is accurate, up-to-date, and complete, but no guarantee is made to that effect. Drug information contained herein may be time sensitive. [employer] information has been compiled for use by healthcare practitioners and consumers in the [place] and therefore [employer] does not warrant that uses outside of the [place] are appropriate, unless specifically indicated otherwise. [employer] drug information does not endorse drugs, diagnose patients or recommend therapy. [employer] drug information isan informational resource designed to [...] effective or appropriate for any given patient. [employer] does not assume any responsibility for any aspect of healthcare administered with the aid of information [employer] provides. The information contained herein is not intended to cover all possible uses, directions, precautions, warnings, drug interactions, allergic reactions, or adverse effects. If you have questions about the drugs you are taking, check with your doctor, nurse or pharmacist. Copyright [id number] [employer]. Version: 13.. Revision Date: 11/16/2022. dofetilide (mathias [...] may report side effects to FDA at 0-186-KQP-0088. What other drugs will affect dofetilide? Other drugs may interact with dofetilide, including prescription and nzcl-duh-sxbzmgc medicines, vitamins, and herbal products. Tell each [...] to ensure that the information provided by [employer]. ('[employer]') is accurate, up-to-date, and complete, but no guarantee is made to that effect. Drug information contained herein may be time sensitive. [employer] information has been compiled for use by healthcare practitioners and consumers in the [place] and therefore [employer] does not warrant that uses outside of the [place] are appropriate, unless specifically indicated otherwise. [employer] drug information does not endorse drugs, diagnose patients or recommend therapy. [employer] drug information isan informational resource designed to [...] effective or appropriate for any given patient. [employer] does not assume any responsibility for any aspect of healthcare administered with the aid of information [employer] provides. The information contained herein is not intended to cover all possible uses, directions, precautions, warnings, drug interactions, allergic reactions, or adverse effects. If you have questions about the drugs you are taking, check with your doctor, nurse or pharmacist. Copyright [id number] [employer]. Version: 4.01. Revision Date: 09/09/2015. allopurinol (oral/injection) [...] and call your (more content not included)... [facility] [id number] Pastoral care Progress note Pastoral Care Note [...] by Sanjay Lucas on 10/04/2024 04:16 PM [facility] [id number] Discharge summary Date of Service 10/04/2024 Discharge [...] When:Within 1-2 days Where:[address] [place] [phone] Business (1) Follow Up Appointments No qualifying data available. Follow Up Labs/Studies Discharge Labs No Follow-up Labs Discharge Studies No Follow-up Studies Discharge Diet No qualifying data available. Discharge Activity No qualifying data available. Readmission Risk/Palliative Score LACE Score: 13 (10/02/24 10:21:00) Palliative Total Score: 1 (10/02/24 10:21:00) Digitally Signed by DUSTIN RICHARD MD on 10/04/2024 12:27 PM [facility] [id number] Discharge summary Date of Service 10/04/2024 Discharge [...] readmission score is 13 Follow Up with SIADORA CORREA When:Within 1-2 days Where:[address] [facility] [place] [phone] Business (1) Follow Up Appointments No qualifying data available. Follow Up Labs/Studies Discharge Labs No Follow-up Labs Discharge Studies No Follow-up Studies Discharge Diet No qualifying data available. Discharge Activity No qualifying data available. Readmission Risk/Palliative Score LACE Score: 13 (10/02/24 10:21:00) Palliative Total Score: 1 (10/02/24 10:21:00) Digitally Signed by DUSTIN RICHARD MD on 10/04/2024 12:27 PM [facility] [id number] Cardiology Progress note Date of Service 10/03/2024 [...] DUSTIN RICHARD MD on 10/03/2024 01:50 PM [facility] [id number] Note* Exam Date Time Procedure Performing Provider Status 10/03/24 10:08 PM Electrocardiogram - EKG - CV JOHNIE VELÁZQUEZ MD; Auth (Verified) ECG Final Report SINUS RHYTHM LEFT AXIS DEVIATION LOW VOLTAGE, PRECORDIAL LEADS Electronic Signature: JOHNIE VELÁZQUEZ MD 10/04/2024 21:58:08 [facility] [id number] Note* Exam Date Time Procedure Performing Provider Status 10/03/24 4:01 PM Echocardiogram, Adult - CV ALIZA PAULINO MD; Auth (Verified) [facility] [id number] Cardiology Progress note Date of Service 10/03/2024 [...] DUSTIN RICHARD MD on 10/03/2024 01:50 PM [facility] [id number] Note* Exam Date Time Procedure Performing Provider Status 10/03/24 10:03 AM Electrocardiogram - EKG - CV JOHNIE VELÁZQUEZ MD; Auth (Verified) ECG Final Report SINUS RHYTHM LOW VOLTAGE, PRECORDIAL LEADS CONSIDER ANTERIOR INFARCT Electronic Signature: JOHNIE VELÁZQUEZ MD 10/04/2024 21:57:56 [facility] [id number] Note* Exam Date Time Procedure Performing Provider Status 10/02/24 10:04 PM Electrocardiogram - EKG - CV JOHNIE VELÁZQUEZ MD; Auth (Verified) ECG Final Report SINUS RHYTHM LEFT ANTERIOR FASCICULAR BLOCK PROLONGED QT INTERVAL Electronic Signature: JOHNIE VELÁZQUEZ MD 10/03/2024 19:52:07 [facility] [id number] History and physical note Date of Service [...] Diabetes mellitus Patient is currently in in [facility]. Rate is relatively well-controlled. Continue Cardizem [...] DUSTIN RICHARD MD on 10/02/2024 03:28 PM [facility] [id number] Note Date of Service October 02, 2024 [...] only), Blood, Once, Nurse Collect, Preferred Lab: [facility], Stop date 10/03/24 5:00:00 EDT Electrocardiogram(EKG), 10/02/24 [...] by MARILUZ BUI on 10/02/2024 02:36 PM [facility] [id number] Note Date of Service October 02, 2024 [...] only), Blood, Once, Nurse Collect, Preferred Lab: [facility], Stop date 10/03/24 5:00:00 EDT Electrocardiogram(EKG), 10/02/24 [...] by MARILUZ BUI on 10/02/2024 02:36 PM [facility] [id number] Evaluation + Plan noteExtracted from: Title:History and Physical Author:DUSTIN RICHARD MD Date:10/02/24 Paroxysmal atrial fibrillati on Tachyarrhythmia induced cardiomyopathy Heart failure with improved EF (EF 30 to 35% in October 2022 to 55% in 2023) Moderate to severe LVH Mild pulmonary hypertension Severely dilated LA (LA 5.1 cm, DANIEL??) Obesity and KOFFI (intolerant to CPAP) Hypertension Diabetes mellitus Patient is currently in in [facility] A-fib. Rate is relatively well-controlled. Continue Cardizem [...] Appointment Date:10/23/2024 04:00:00 PM Scheduled Provider:ISADORA CORREA [facility] Appointment Type:PC OV Appointment Date:11/08/2024 02:30:00 PM Scheduled Provider:EDY WEBER Location:[facility] Appointment Type:[facility] Hospital Follow Up Diagnostic Tests Pending * Urinalysis w/ C&S if Indicated 10/02/24 Future Scheduled Tests Laboratory* Basic Metabolic Panel 02/07/24 * Basic Metabolic Panel 12/10/24 * Basic Metabolic Panel 02/19/24 * Magnesium Level 02/07/24 * Complete Blood Count 08/27/24 * Complete Metabolic Panel 08/27/24 * N-Terminal proBNP 08/27/24 [facility] 05-07-2025 Note* Exam Date Time Procedure Performing Provider Status 10/02/24 1:53 PM Electrocardiogram - EKG - CV Brant VELÁZQUEZ MD; Auth (Verified) ECG Final Report SINUS RHYTHM PROBABLE LEFT ATRIAL ENLARGEMENT Left axis deviation Electronic Signature: JOHNIE VELÁZQUEZ MD 10/03/2024 19:51:33 [facility] [id number] History and physical note Date of Service [...] Diabetes mellitus Patient is currently in in [facility] A-fib. Rate is relatively well-controlled. Continue Cardizem [...] DUSTIN RICHARD MD on 10/02/2024 03:28 PM [facility] [id number] Respiratory therapy Hospital Progress note Respiratory Therapy [...] by CURTIS Patton on 10/02/2024 11:12 AM [facility] [id number] Note* Exam Date Time Procedure Performing Provider Status 10/02/24 8:23 AM Electrocardiogram - EKG - CV Brant VELÁZQUEZ MD; Auth (Verified) ECG Final Report ATRIAL FIBRILLATION LEFT ANTERIOR FASCICULAR BLOCK Electronic Signature: JOHNIE VELÁZQUEZ MD 10/03/2024 19:51:22 [facility] [id number] Note* Exam Date Time Procedure Performing Provider Status 10/02/24 6:24 AM Electrocardiogram - EKG - CV Brant VELÁZQUEZ MD; Auth (Verified) ECG Final Report ATRIAL FIBRILLATION WITH RAPID VENTRICULAR RESPONSE Right axis deviation Electronic Signature: JOHNIE VELÁZQUEZ MD 10/03/2024 19:51:11 [facility] [id number] Nurse Progress note bryon Nicole [phone] Digitally Signed by Halley Staples RN on 10/02/2024 04:26 AM [facility]05-07-2025 Nurse Progress note ready bed at main, transport called at 0230 ETA 90 min Digitally Signed by Halley Staples RN on 10/02/2024 04:22 AM [facility]05-07-2025 Nurse Progress note ready bed at main, transport called at 0230 ETA 90 min Digitally Signed by Halley Staples RN on 10/02/2024 04:22 AM [facility]05-07-2025 Note* Exam Date Time Procedure Performing Provider Status 10/02/24 1:43 AM XR Chest 1 View DARNELL MOLINA MD; A [facility] (Verified) [id number] ORIGINAL EXAMINATION: ONE XRAY VIEW OF THE [...] 10/02/2024 2:02:33 AM Ordering Provider: DELORES MURO [facility]05-07-2025 Note* Exam Date Time Procedure Performing Provider Status 10/02/24 12:38 AM EKG [ED AOH] - DELORES CALLOWAY DO; A [facility] (Verified) ECG Final Report Atrial fibrillation Inferior infarct, old Probable anteroseptal infarct, old Prolonged QT interval Baseline wander in lead(s) III,V1,V2,V5,V6 Compared to ECG at 08/13/2024 11:03:57 Electronic Signature: TAVOSUZANNE COUCHAJ STONE 10/02/2024 02:28:42 [facility]10-30-2024 Note The microscopic examination is performed, except in the case of Gross Only. [facility] 10-29-2024 Note The microscopic examination is performed, except in the case of Gross Only. [facility] 10-29-2024 Note The microscopic examination is performed, except in the case of Gross Only. [facility] 10-29-2024 Note The microscopic examination is performed, except in the case of Gross Only. [facility] 10-29-2024 Note The microscopic examination is performed, except in the case of Gross Only. [facility] 10-29-2024 Note The microscopic examination is performed, except in the case of Gross Only. [facility] 10-29-2024 Note The microscopic examination is performed, except in the case of Gross Only. [facility] 09-09-2024 Note. MICRO - Microbiology PROCEDURE: Blood [...] Locations *1: This test was performed at: [address], [address] [place], [place] 3712709-09-2024 Note. MICRO - Microbiology PROCEDURE: Blood Culture [...] Locations *1: This test was performed at: [address], [address] [place], [place] [address]12709-09-2024 Note. MICRO - Microbiology PROCEDURE: Blood Culture [...] Locations *1: This test was performed at: [address], [id number] [place] [address] [id number] Note. MICRO - Microbiology PROCEDURE: Blood Culture [...] Locations *1: This test was performed at: [address], [address] [place] [address] [id number] Hospital Discharge instructions Patient Education 02/01/2024 17:18:13 Atrial Fibrillation, Tanc-mv-Zihp Atrial Fibrillation Atrial fibrillation is a type [...] Follow these instructions at home: Medicines Take tkhg-dir-ynhbdsn and prescription medicines only as told by [...] 02/21/2009 Document Revised: 07/19/2018 Document Reviewed: 07/06/2018 [employer] Patient Education 2020 [employer]. Follow Up Care 01/31/2024 00:20:11 With:ISADORA CORREA Address: [place] [address]- When:1-2 days Comments:Please call the office to schedule a hospital follow-up appointment. [facility] 09-05-2024 Note Discharge Instructions Thank you for allowing [facility] to assist you with your healthcare needs. The following is importantdischarge information regarding your hospital visit. Your Care Team ISADORA CORREA Your Diagnosis Shortness of breath What to do next Instructions From Your Doctor Resume taking all your usual medications Keep yourself hydrated Follow-up with your primary care physician and program engagement director Scheduled Follow-Up Appointments Appointment Type When With Where Contact Information [facility] Annual w/Labs 02/13/2024 03:30 PM EDT ISADORA CORREA [facility] Confirmed Follow Up Appointments Follow Up with ISADORA CORREA When:Within 1-2 days Where:[place] [address]- Additional Information: Please call the office to [...] Follow these instructions at home: Medicines Take pszo-gvp-trlzrof and prescription medicines only as told by [...] 02/21/2009 Document Revised: 07/19/2018 Document Reviewed: 07/06/2018 [employer] Patient Education 2020 [employer] Additional Information VACCINATE! IT SAVES LIVES! Members of the community who have not yet received the COVID-19 vaccine and would like to receive it can visit one of [place] vaccine clinics. There are many vaccine clinic locations within the [facility]. For locations and available times, please visit https://gettheshot.coronavirus.[place].gov/. It is important to note that some COVID mobile vaccine clinics are held outdoors and may be canceled in rainy or stormy conditions. To learn more about pediatric vaccinations (ages 5-11), we invite you to visit the [facility] webpage. https://www.[facility].org/pages/8839-Mxtcj-Mbafabwzyaa-Mljwdwicgk-Nmayf-Bnw stions.htmlTo learn more about the COVID-19 vaccine, we invite you to visit the CDC website for a list of frequently asked questions.https://www.cdc.gov/coronavirus/2019-ncov/vaccines/faq.html [facility] Patient Portal Access Instructions: Stay connected with your healthcare team and access your personal medical information anytime with the [facility] Patient Portal. Please follow the directions below to create your [facility] account: 1.Access the email account you provided upon registration to the hospital/physician office.2.Look for an invitation email from [facility].3.Open the email and access the invitation link: AcceptInvitation to [facility].4.Fill in the required orr to create your account. To access your account, visit [facility] [employer]Lunagamest. Click the blue button labeled Access Patient Portal and then log in with the username and password that you created in the steps above. You will be able to view your test results, lab results, a summary of your visits, upcoming appointments and more. There is also a convenient messaging option where you can send secure messages to your INBEPvider. In addition, you will have the ability to download any documents or summaries to your computer and/or send the information securely to a physician. Remember that your healthcare information is confidential, so carefully consider who you will allowto register on the [facility] Patient Portal for access to your information. You can also access the [facility] Patient Portal on the [facility] frida. Simply click on Patient Portal and then log into your account. If you would like to receive a full copy of your medical records, please contact the [facility] Medical Records Department by calling [phone], Monday through Monday between 8 a.m. and [...] Call your local pharmacy or go to http://bit.[employer]1X1Rm8s to find one close to you.3.Make use of household items: Use cat litter or old coffee grounds to dispose medications if other options arenot available. Mix your drugs with these household products, seal them in an airtight container andthrow it into the garbage. Call [facility]: [phone] to be sure your drugs can be [...] COPY. Signatures Patient Education Materials Atrial Fibrillation, Spvf-ju-Niwt Medication Leaflets My discharge plan and instructions have been reviewed and explained to me and IWARREN RAY J understand my current condition and have read and understand these discharge instructions. I have received awritten copy of the plan/instructions. If I have questions, I am aware that I should contact my doctor. 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 The patient presented to the [facility] on 01/31/2024 as a transfer from [place] for A-fib with RVR. 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 Blood Glucose Test Strips: See Instructions, 1 bottle of 100 Test once daily, # 1 EA, 11 Refill(s), Pharmacy: [facility], 177.8, cm, 11/28/23 13:54:00 EDT, Height, 151.4, kg, 11/28/23 13:54:00 EDT, Dosing Weight FLUoxetine 20 mg oral capsule: Dose : 20 mg = 1 cap(s), Oral, qDay, # 30 cap(s), 3 Refill(s), Pharmacy: [facility], 177.8, cm, 11/28/23 13:54:00 EDT, Height, kg, 11/28/23 13:54:00 EDT,Dosing Weight Lancets: See Instructions, qs 1 month supply Test once daily, # 1 EA, 11 Refill(s), Pharmacy: [facility], 177.8, cm, 11/28/23 13:54:00 EDT, Height, 151.4, kg, 11/28/23 13:54:00 EDT, Dosing Weight Lasix 40 mg oral tablet: See Instructions, 1 tab in AM and 0.5 tab in PM, # 135 tab(s), 3 Refill(s), Pharmacy: [facility], 177.8, cm, 11/28/23 13:54:00 EDT, Height, kg, 11/28/23 13:54:00 EDT, Dosing Weight Symbicort 80 mcg-4.5 mcg/inh Inhaler: Dose = 2 puff(s), Inhalation, BID, # 10.2 gram(s), 3 Refill(s), Pharmacy: [facility], 177.8, cm, 11/28/23 13:54:00 EDT, Height, kg, 11/28/23 13:54:00 EDT, Dosing Weight Tikosyn 250 mcg oral capsule: Dose : 250 mcg = 1 cap(s), Oral, BID, # 180 cap(s), 3 Refill(s), Pharmacy: [facility]/pharmacy #[id number], 177.8, cm, 11/28/23 13:54:00 EDT, Height, kg, 11/28/23 13:54:00 EDT, Dosing Weight Toprol-XL 100 mg oral tablet, extended release: Dose : 100 mg = 1 tab(s), Oral, BID, do not crush or chew, # 180 tab(s), 3 Refill(s), Pharmacy: [facility], Shortness of breath, 177.8, cm, 11/28/23 13:54:00 EDT, Height, kg, 11/28/23 13:54:00 EDT, Dosing Weight Trulicity Pen 1.5 mg/0.5 mL subcutaneous solution: Dose : 1.5 mg =, Subcutaneous, qWeek, sent in absence of PCP, # 4 EA, 3 Refill(s), Pharmacy: [facility], 177.8, cm, 11/28/23 13:54:00EDT, Height, kg, 11/28/23 13:54:00 EDT, Dosing Weight Vistaril 25 mg oral capsule: Dose : 25 mg = 1 cap(s), Oral, QID, PRN as needed for anxiety, X 30 day(s), # 120 cap(s), 5 Refill(s), 06/09/24 16:10:00 EST, Pharmacy: [facility], 177.8, cm, 11/28/23 13:54:00 EDT, Height, kg, 11/28/23 13:54:00 EDT, Dosing Weight Xarelto 20 mg oral tablet: Dose : 20 mg = 1 tab(s), Oral, qHS, # 90 tab(s), 3 Refill(s), Pharmacy: [facility], 177.8, cm, 11/28/23 13:54:00 EDT, Height, 151.4, kg, 11/28/23 13:54:00 EDT, Dosing Weight allopurinol 100 mg oral tablet: Dose : 100 mg = 1 tab(s), Oral, qDay, # 90 tab(s), 3 Refill(s), Pharmacy: [facility], 177.8, cm, 11/28/23 13:54:00 EDT, Height, kg, 11/28/23 13:54:00 EDT, Dosing Weight cetirizine 10 mg oral tablet: Dose : 10 mg = 1 tab(s), Oral, Daily, # 90 tab(s), 3 Refill(s), Pharmacy: [facility], 177.8, cm, 11/28/23 13:54:00 EDT, Height, kg, 11/28/23 13:54:00 EDT,Dosing Weight nystatin 100,000 units/g topical cream: Apply 1 frida, Topical, BID, X 10 day(s), # 30 gram(s), 1 Refill(s), Pharmacy: [facility]/pharmacy #[id number], Cream, 177, cm, 01/12/24 9:42:00 EDT, Height, 148.6, kg, 01/12/24 9:42:00 EDT, Dosing Weight omeprazole 40 mg oral delayed release capsule: Dose : 40 mg = 1 cap(s), Oral, BID, before a meal., # 180 cap(s), 3 Refill(s), Pharmacy: [facility], 177.8, cm, 11/28/23 13:54:00 EDT, Height, kg, 11/28/23 13:54:00 EDT, Dosing Weight rosuvastatin 20 mg oral tablet: Dose : 20 mg = 1 tab(s), Oral, Daily, # 100 tab(s), 3 Refill(s), Pharmacy: [facility], 177.8, cm, 11/28/23 13:54:00 EDT, Height, kg, 11/28/23 13:54:00 EDT, Dosing Weight sacubitril-valsartan 49 mg-51 mg oral tablet: Dose = 1 tab(s), Oral, BID, # 180 tab(s), 3 Refill(s), Pharmacy: [facility], 177.8, cm, 11/28/23 13:54:00 EDT, Height, kg, 11/28/23 13:54:00 EDT, Dosing Weight spironolactone 25 mg oral tablet: Dose : 25 mg = 1 tab(s), Oral, qDay, # 90 tab(s), 3 Refill(s), Pharmacy: [facility], 177.8, cm, 11/28/23 13:54:00 EDT, Height, kg, 11/28/23 13:54:00 EDT, Dosing Weight tiZANidine 2 mg oral tablet: Dose : 2 mg = 1 tab(s), Oral, q8h, PRN as needed for muscle spasm, # 90 tab(s), 2 Refill(s), Pharmacy: [facility], 177.8, cm, 11/28/23 13:54:00 EDT, Height, kg, 11/28/23 13:54:00 EDT, Dosing Weight traZODone 100 mg oral tablet: Dose : 100 mg = 1 tab(s), Oral, qHS, # 90 tab(s), 3 Refill(s), Pharmacy: [facility], 177.8, cm, 11/28/23 13:54:00 EDT, Height, [...] list: Medical Asthma exacerbation / SNOMED CT 3100529975 / Confirmed Anxiety / SNOMED CT 60611776 / Confirmed Atopic dermatitis / SNOMED CT 66694137 / Confirmed BMI 45.0-49.9, adult / SNOMED CT 1565566134 / Confirmed Cardiomyopathy / SNOMED CT 030040601 / Confirmed Diabetes mellitus / SNOMED CT 892380679 / Confirmed Generalized anxiety disorder / SNOMED CT 44961230 / Confirmed Hyperlipidemia / SNOMED CT 29351926 / Confirmed Hypertension / SNOMED CT 5750707988 / Confirmed Insomnia / SNOMED CT 747805220 / Confirmed Moderate asthma / SNOMED CT 8697769024 / Confirmed Morbid obesity / SNOMED CT 500771465 / Confirmed Chewing tobacco nicotine dependence / SNOMED CT 59433564 / Confirmed Obstructive sleep apnea / SNOMED CT 769248551 / Confirmed Right knee pain / SNOMED CT 7900365327 / Confirmed Paroxysmal atrial fibrillation / SNOMED CT 538210824 / Confirmed Screening for ischemic heart disease / SNOMED CT 228139793 / Confirmed Screening for colon cancer / SNOMED CT 223885083 / Confirmed Prediabetes / SNOMED CT 7461039690 / Confirmed Right flank pain / SNOMED CT 670603052 / Confirmed Type 2 diabetes mellitus with hemoglobin A1c goal of less than 7.0% / SNOMED CT 376070447 / Confirmed Wheezing / SNOMED CT 67352560 / Confirmed, Active Problems (26) Anxiety Asthma [...] Mother Grandparent Stroke Father Procedure history: Cardioversion ([id number]) on 12/23/2022 at 52 Years. Echocardiogram ([id number]) on 11/11/2022 at 52 Years. Comments: 03/20/2023 [...] right atrial pressure is 15 mm Hg [facility] ([id number]). Comments: 07/11/2022 8:26 SHAHEEN Nunez - right [...] On and Limits Checked Nail Bed Color [place] Capillary Refill < 2 seconds Heart Sounds [...] Elimination Voiding, no difficulties All Extremity Description [place] Skin Temperature Warm Temperature All Extremities Warm Skin Description [place], Dry Skin Integrity Intact Skin Turgor Non-Elastic Mucous Membrane Color [place] Mucous Membrane Description Moist Neurological Language Able to speak clearly Neurological Symptoms Patient denies Gait Unable to assess Extremity Movement Equal Swallowing Difficulty None Characteristics of Communication Appropriate Characteristics of Speech Clear Facial Symmetry Symmetric Level of Consciousness Alert Aspiration Risk None Eye Opening Response Vancleave Spontaneously Best Motor Response Luis Felipe Obeys [...] On and Limits Checked Nail Bed Color [place] Capillary Refill < 2 seconds Heart Sounds ICU S1S2 Heart Rhythm Irregular Cardiac Rhythm Sinus rhythm Monitoring Lead II, V5/MCL5 MI Interval 0.16 second(s) QRS Duration 0.08 second(s) [...] Elimination Voiding, no difficulties All Extremity Description [place] Skin Temperature Warm Temperature All Extremities Warm Skin Description [place], Dry Skin Integrity Intact Skin Turgor Non-Elastic Mucous Membrane Color [place] Mucous Membrane Description Moist Neurological Language Able to speak clearly Neurological Symptoms Patient denies Gait Unable to assess Extremity Movement Equal Swallowing Difficulty None Characteristics of Communication Appropriate Characteristics of Speech Clear Facial Symmetry Symmetric Level of Consciousness Alert Aspiration Risk None Eye Opening Response Luis Felipe Spontaneously Best Motor Response Vancleave Obeys simple commands Best Verbal Response Luis Felipe Oriented Vancleave Coma Score 15 CLARA Yes Strength All [...] Notify date/time 01/31/2024 22:20 Provider 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 Pager Information Communicated Medication request [...] On and Limits Checked Nail Bed Color [place] Capillary Refill < 2 seconds Heart Sounds [...] Movement Makes facial grimaces All Extremity Description [place] Skin Temperature Warm Temperature All Extremities Warm Skin Description [place], Dry Skin Integrity Intact Skin Turgor Non-Elastic Mucous Membrane Color [place] Mucous Membrane Description Moist Sensory Perception [place] [...] On and Limits Checked Nail Bed Color [place] Capillary Refill < 2 seconds Heart Sounds [...] intact Skin Turgor Non-Elastic Mucous Membrane Color [place] Mucous Membrane Description Moist Neurological Language Able to speak clearly Neurological Symptoms Patient denies Extremity Movement Equal Swallowing Difficulty None Characteristics of Communication Appropriate Characteristics of Speech Clear Facial Symmetry Symmetric Level of Consciousness Alert Aspiration Risk None Eye Opening Response Luis Felipe Spontaneously Best Motor Response Vancleave Obeys simple commands Best Verbal Response Luis Felipe Oriented Vancleave Coma Score 15 CLARA Yes Left Pupil [...] of Bed Elevated 30 01/31/2024 15:38 EDT [facility] Current Living Situation I have a steady place to live [facility] Current Issues Living Environment None [facility] Worried Food Running Out P12M Never true [facility] Food Gone, No Money To Buy P12M Never true [facility] No Transport Med/Appt/Work P12M No [facility]HC Utilities Threaten Shut Off P12M No [facility] Anyone Physically Hurt You Never (1) C Anyone Insult Or Talk Down To You Never (1) C Anyone Threaten You With Harm Never (1) [facility] Anyone Scream Or Curse At You Never (1) [facility] Safety Total Score 4 Living Situation Lives with family Discharge To, Anticipated Home independently Anticipated Discharge Date 02/02/2024 Transition Planning Note Transition Planning Initial Assessment 01/31/2024 15:36 EDT Primary Care Phone Message Transition of Care sent from [facility] 01/31/2024 14:59 EDT heparin 9,000 unit(s) unit(s) Dextrose 5% Premix Diluent 90 mL mL 01/31/2024 14:43 EDT [place] Body Weight 72.7 kg Home Diet Regular Weight Chg, Unintentional Nutrition Hx Weight stable per milaca history Appetite Good Nutrition Plan of Care Dietitian follow up/monitor, Encourage PO feedings, Participate in team conference Nutrition Follow-Up Needed Yes Days until Director Of Web Marketing Follow Up Seven days Adult Nutrition Initial Assessment/Plan Adult Nutrition Assessment/Plan 01/31/2024 14:22 EDT Transition of Care Note Transition of Care sent from [facility] 01/31/2024 14:00 EDT Hand Right 01/30/2024 20 [...] On and Limits Checked Nail Bed Color [place] Capillary Refill < 2 seconds Heart Rhythm [...] Description Normal for ethnicity Mucous Membrane Color [place] Mucous Membrane Description Moist Hand Right 01/30/2024 [...] On and Limits Checked Nail Bed Color [place] Capillary Refill < 2 seconds Heart Rhythm [...] intact Skin Turgor Non-Elastic Mucous Membrane Color [place] Mucous Membrane Description Moist Continuous IV Infusions [...] On and Limits Checked Nail Bed Color [place] Capillary Refill < 2 seconds Heart Rhythm Irregular Pretibial edema Bilateral Edema Ratin+ trace/2mm Cardiac Rhythm Atrial fibrillation Monitoring Lead II, V6/MCL6 Alarms On and Functional Yes Respirations Unlabored Respi (more content not included)... [facility] [id number] NoteSINUS RHYTHM IVCD MISSING LEAD(S): V1,V2,V3,V4,V5 Electronic Signature: MOY WATTS MD 02/01/2024 11:10:55[facility] 09-04-2024 Cardiology Consult note Date of Service [...] anxiety and gout who initially presented to [facility] on 01/30/2024 for shortness of breath and [...] not tolerate Cardizem drip. Patient transferred to [facility] for further management. Placed on Levophed. [...] (s): 1.87 H Assessment/Plan A-fib with RVR ([id number] 2) Near syncopal episode Tachycardia mediated cardiomyopathy [...] Will continue to follow. Patient seen with program engagement director Dr. Hartley who agreed with plan. Please [...] MICHELLE HENRY MD on 01/31/2024 12:53 PM [facility] [id number] Note* Exam Date Time Procedure Performing Provider Status 01/31/24 4:20 PM Echocardiogram, Adult - CV Auth (Verified) [facility] 09-04-2024 Note. MICRO - Microbiology PROCEDURE: Blood [...] Locations *1: This test was performed at: [facility], [address] [place] [address], [id number]- , [facility] ([place])01-31-2024 Note. MICRO - Microbiology PROCEDURE: Blood Culture [...] Locations *1: This test was performed at: [facility], [address] [place] [address], [id number]- , [facility] ([place])01-31-2024 Evaluation + Plan noteExtracted from: Title:History and [...] prophylactically got a dose of ceftriaxone at [facility]. We will continue with prophylactic ceftriaxone dose [...] atrial fibrillation with rapid ventricular rate at [facility] admitted to the ICU overnight started on [...] Appointment Date:02/13/2024 03:30:00 PM Scheduled [facility] Appointment Type:PC Wellness Annual w/Labs Diagnostic Tests Pending * Culture Respiratory with Gram Stain 01/31/24 * APTT 02/01/24 Future Scheduled Tests Laboratory* Basic Metabolic Panel 04/01/23 * Prostate Specific Antigen 02/07/24 * A1C Hemoglobin 02/07/24 * Lipid Profile 02/07/24 * Complete Metabolic Panel 02/07/24 [facility] 09-04-2024 History and physical note Date of [...] evaluated On arrival to the ER at [facility], patient was febrile 37.4, tachycardic 133, tachypneic 21, BP 90/76, was saturating 96% on room air. Labs done at [facility] 01/30/2024 revealed pO2 51 on the gases [...] prophylactically got a dose of ceftriaxone at [facility].We will continue with prophylactic ceftriaxone dose as [...] CINDY HERNANDEZ MD on 01/31/2024 08:06 AM [facility] [id number] Cardiology Consult note Date of Service 01/31/2024 [...] anxiety and gout who initially presented to [facility] on 01/30/2024 for shortness of breath and [...] not tolerate Cardizem drip. Patient transferred to [facility] for further management. Placed on Levophed. [...] (s): 1.87 H Assessment/Plan A-fib with RVR ([id number] 2) Near syncopal episode Tachycardia mediated cardiomyopathy [...] Will continue to follow. Patient seen with program engagement director Dr. Hartley who agreed with plan. Please [...] MICHELLE HENRY MD on 01/31/2024 12:53 PM [facility] [id number] NoteATRIAL FIBRILLATION LAD, CONSIDER LEFT ANTERIOR FASCICULAR BLOCK LOW VOLTAGE, PRECORDIAL LEADS BORDERLINE T ABNORMALITIES, INFERIOR LEADS BORDERLINE PROLONGED QT INTERVAL Electronic Signature: MOY WATTS MD 02/01/2024 11:10:[address] [place] [address] 09-04-2024 Note. MICRO - Microbiology PROCEDURE: Blood [...] Locations *1: This test was performed at: [address], [address] [place], [place] 6903001-31-2024 Note. MICRO - Microbiology PROCEDURE: Blood Culture [...] Locations *1: This test was performed at: [address], [address] [place], [place] 6[address]001-31-2024 History and physical note Date of Service [...] evaluated On arrival to the ER at [facility], patient was febrile 37.4, tachycardic 133, tachypneic 21, BP 90/76, was saturating 96% on room air. Labs done at [facility] 01/30/2024 revealed pO2 51 on the gases [...] prophylactically got a dose of ceftriaxone at [facility].We will continue with prophylactic ceftriaxone dose as [...] CINDY HERNANDEZ MD on 01/31/2024 08:06 AM [facility] [id number] Note ORIGINAL EXAMINATION: CT OF THE HEAD [...] Date: 01/30/2024 10:16:46 PM Ordering Provider: SAMY [facility]09-03-2024 Note ORIGINAL EXAMINATION: ONE XRAY VIEW OF [...] Date: 01/30/2024 9:28:12 PM Ordering Provider: SAMY [facility]09-03-2024 NoteAtrial flutter Left anterior fascicular block Borderline low voltage, extremity leads Abnormal R-wave progression, late transition Borderline ST depression, lateral leads Prolonged QT interval Baseline wander in lead(s) V3,V5 Electronic Signature: MD SAMY JONES MD 01/30/2024 21:01:46[facility] 03-13-2024 Hospital Discharge instructions Patient Education 08/09/2023 [...] get worse or if new symptoms appear. 4239-7214 [employer]. [address] [place] [address], [place] [address]. All rights reserved. This information is not intended as a substitute for professional medical care. Always follow yourhealthcare professional's instructions. Follow Up Care 08/09/2023 21:02:01 With:ISADORA CORREA Address: [address] [place] [address] [phone] Business (1) When:5-7 days Comments:Use warm compresses, Tylenol as discussed, return if any worsening or concerning symptoms. Follow-up closely with your doctor. [facility] 03-13-2024 Note Discharge Instructions Thank you for allowing [facility] to assist you with your healthcare needs. [...] with your doctor. Where: [address] [place] [address] [phone] Business (1) Allergies NKA Medications Please ask [...] get worse or if new symptoms appear. [phone] [employer]. [address] [place] [address]. All rights reserved. This information is not intended as a substitute for professional medical care. Always follow yourhealthcare professional's instructions. Additional Information VACCINATE! IT SAVES LIVES! Members of the community who have not yet received the COVID-19 vaccine and would like to receive it can visit one of [place] vaccine clinics. There are many vaccine clinic locations within the [facility]. For locations and available times, please visit www.gettheshot.coronavirus.[place].gov/. It is important to note that some COVID mobile vaccine clinics are held outdoors and may be canceled in rainy or stormy conditions. To learn more about pediatric vaccinations (ages 5-11), we invite you to visit the [facility] webpage. https://www.[facility].org/pages/8376-Raqql-Beogxgkelid-Sahgvzfdof-Twmio-Vhu stions.htmlTo learn more about the COVID-19 vaccine, we invite you to visit the CDC website for a list of frequently asked questions. https://www.cdc.gov/coronavirus/2019-ncov/vaccines/faq.html [facility] Patient Portal Access Instructions: Stay connected with your healthcare team and access your personal medical information anytime with the [facility] Patient Portal. If you would like a full copy of your medical records please contact the [facility] Medical Records Department Monday through Monday between 8a.m. and 4:30p.m. Please follow the directions below to access the portal: 1.Access the email account you provided upon registration to the [facility].2.Look for an invitation email from [facility].3.Open the email and access the invitation link: Accept Invitation to [facility]4.Fill in the required orr to create your account. Sign into [email or web address] with your username and password that you [...] you will allow to register on the [facility] Patient Portal for access to your information. You can also access the [facility] Patient Portal on the [employer] frida. Simply click on Health Records under Plan [employer] Funding and then click on the [employer] logo. HOW TO SAFELY DISPOSE OF PRESCRIPTION [...] Call your local pharmacy or go to http://SafetyWeb[employer]0N3Dy5z to find one close to you.3.Make use of household items: Use cat litter or old coffee grounds to dispose medications if other options arenot available. Mix your drugs with these household products, seal them in an airtight container andthrow it into the garbage. Call [facility]: [phone] to be sure your drugs can be [...] aware that I should contact my doctor. 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 You may use ypfv-nnu-jnmybgc medicine to control fever or pain, unless [...] loosen secretions in the nose and lungs. Njgp-myr-gwbppvo cough, cold, and sore-throat medicines will not [...] shortness of breath, or pain with breathing 8624-1492 [employer]. [address] [place] [address]. All rights reserved. This information is not intended as a substitute for professional medical care. Always follow yourhealthcare professional's instructions. Follow Up Care 06/13/2023 00:01:18 With:ISADORA CORREA Address: [address] [place] [address]- [phone] Business (1) When:3-7 days Comments:Schedule appointment for [...] portal.Return to the ED if symptoms worsen. [facility] 01-16-2024 Note Discharge Instructions Thank you for allowing [facility] to assist you with your healthcare needs. [...] ED if symptoms worsen. Where: [place] [address]- [phone] Business (1) Allergies NKA Medications Please ask [...] exposed to secondhand smoke. You may use fxra-ghh-cwhpvhw medicine to control fever or pain, unless [...] loosen secretions in the nose and lungs. Qfpc-qta-mlozlin cough, cold, and sore-throat medicines will not [...] shortness of breath, or pain with breathing 5433-8218 [employer]. [address] [place] [address]. All rights reserved. This information is not intended as a substitute for professional medical care. Always follow yourhealthcare professional's instructions. Additional Information VACCINATE! IT SAVES LIVES! Members of the community who have not yet received the COVID-19 vaccine and would like to receive it can visit one of [place] vaccine clinics. There are many vaccine clinic locations within the [facility]. For locations and available times, please visit www.gettheshot.coronavirus.[place].gov/. It is important to note that some COVID mobile vaccine clinics are held outdoors and may be canceled in rainy or stormy conditions. To learn more about pediatric vaccinations (ages 5-11), we invite you to visit the [facility] webpage. https://www.[facility].org/pages/8847-Aygsl-Hbqiorlbtmo-Jgeamdnrrz-Ctkgj-Wsh stions.htmlTo learn more about the COVID-19 vaccine, we invite you to visit the CDC website for a list of frequently asked questions. https://www.cdc.gov/coronavirus/2019-ncov/vaccines/faq.html [facility] Patient Portal Access Instructions: Stay connected with your healthcare team and access your personal medical information anytime with the [facility] Patient Portal. If you would like a full copy of your medical records please contact the [facility] Medical Records Department Monday through Monday between 8a.m. and 4:30p.m. Please follow the directions below to access the portal: 1.Access the email account you provided upon registration to the [facility].2.Look for an invitation email from [facility].3.Open the email and access the invitation link: Accept Invitation to [facility]4.Fill in the required orr to create your account. Sign into [email or web address] Envy with your username and password that you [...] you will allow to register on the [facility] Patient Portal for access to your information. You can also access the [facility] Patient Portal on the [employer] frida. Simply click on Health Records under [...] Call your local pharmacy or go to http://bit.ly/1J0Hk1t to find one close to you.3.Make use of household items: Use cat litter or old coffee grounds to dispose medications if other options arenot available. Mix your drugs with these household products, seal them in an airtight container andthrow it into the garbage. Call [facility]: [phone] to be sure your drugs can be [...] aware that I should contact my doctor. 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: Relationship to Patient: Witness Name/Signature: Date/Time: [facility]01-16-2024 Note ORIGINAL EXAMINATION: ONE XRAY VIEW OF [...] Sign Date: 06/13/2023 12:39:50 AM Ordering Provider: [facility]01-12-2024 Hospital Discharge instructions Patient Education 06/09/2023 20:03:33 Atrial Fibrillation, Cvcw-wk-Velq Atrial Fibrillation Atrial fibrillation is a type [...] Follow these instructions at home: Medicines Take wvka-zse-lxgelcr and prescription medicines only as told by [...] 02/21/2009 Document Revised: 07/19/2018 Document Reviewed: 07/06/2018 Id[employer] Patient Education 2020 [employer]. Follow Up Care 06/06/2023 16:24:50 With:ISADORA CORREA Address: [address] [place] [address]- [phone] When: Unknown Comments:PLEASE CALL THIS OFFICE TO SCHEDULE A HOSPITAL FOLLOW UP APPOINTMENT With:MOY WATTS MD Address: [address] [place] [address] [address] [place], [place] [address]- [phone] When:07/17/2023 15:15:00 Comments:THIS APPOINTMENT WILL BE WITH ZHOU ESPINOSA CNP [facility] 01-12-2024 Note Discharge Instructions Thank you for allowing [facility] to assist you with your healthcare needs. The following is importantdischarge information regarding your hospital visit. Your Care Team ISADORA CORREA Your Diagnosis Shortness of breath What to do next Scheduled Follow-Up Appointments Appointment Type When With Where Contact InformationPC OV 06/20/2023 02:30 PM EST ISADORA CORREA [facility] CV OV 07/17/2023 03:15 PM EST ZHOU ESPINOSA [facility] Follow Up Appointments Follow Up with MOY WATTS MD When 07/17/2023 03:15 PM EST Why: THIS APPOINTMENT WILL BE WITH ZHOU ESPINOSA CNP Where: [address] [place] [address] [address] [place], [place] [address]- [phone] Follow Up with ISADORA CORREA When Why: PLEASE CALL THIS OFFICE TO SCHEDULE A HOSPITAL FOLLOW UP APPOINTMENT Where: [address] [facility] [place] [address]- [phone] The Following Activity and Diet Have Been [...] day Refills: 2 Pickup at [facility] #[id number] Changed FLUoxetine (FLUoxetine 10 mg oral capsule) 1 cap by mouth Once a day Pickup at [facility] #[id number] Unchanged allopurinol (allopurinol 100 mg oral tablet) [...] Daily at bedtime Pharmacy Information [facility] #[id number]: [address], [place] [id number] [phone] Please take this list to your next [...] may report side effects to FDA at 5-444-BFI-5652. What other drugs will affect dofetilide? Other drugs may interact with dofetilide, including prescription and lqyr-gsl-wziotme medicines, vitamins, and herbal products. Tell each [...] to ensure that the information provided by [facility]. ('[employer]') is accurate, up-to-date, and complete, but no guarantee is made to that effect. Drug information contained herein may be time sensitive. [employer] information has been compiled for use by healthcare practitioners and consumers in the [place] and therefore [employer] does not warrant that uses outside of the [place] are appropriate, unless specifically indicated otherwise. [employer] drug information does not endorse drugs, diagnose patients or recommend therapy. [employer] drug information isan informational resource designed to [...] effective or appropriate for any given patient. [employer] does not assume any responsibility for any aspect of healthcare administered with the aid of information [employer] provides. The information contained herein is not intended to cover all possible uses, directions, precautions, warnings, drug interactions, allergic reactions, or adverse effects. If you have questions about the drugs you are taking, check with your doctor, nurse or pharmacist. Copyright 5475-8497 [employer] [facility] [employer]. Version: 4.01. Revision Date: 09/09/2015. Education Materials [...] Follow these instructions at home: Medicines Take skcy-nni-pskzmsi and prescription medicines only as told by [...] 02/21/2009 Document Revised: 07/19/2018 Document Reviewed: 07/06/2018 Idyl[employer] Patient Education 2020 [employer]. Additional Information VACCINATE! IT SAVES LIVES! Members of the community who have not yet received the COVID-19 vaccine and would like to receive it can visit one of [place] vaccine clinics. There are many vaccine clinic locations within the [facility]. For locations and available times, please visit https://gettheshot.coronavirus.[place].gov/. It is important to note that some COVID mobile vaccine clinics are held outdoors and may be canceled in rainy or stormy conditions. To learn more about pediatric vaccinations (ages 5-11), we invite you to visit the [facility] webpage. https://www.[facility].org/pages/5828-Dvdrj-Qkdbmpgontu-Ppggvwqtnq-Tgivr-Eet stions.htmlTo learn more about the COVID-19 vaccine, we invite you to visit the CDC website for a list of frequently asked questions.https://www.cdc.gov/coronavirus/2019-ncov/vaccines/faq.html [facility] Patient Portal Access Instructions: Stay connected with your healthcare team and access your personal medical information anytime with the [facility] Patient Portal. Please follow the directions below to create your [facility] account: 1.Access the email account you provided upon registration to the hospital/physician office.2.Look for an invitation email from [facility].3.Open the email and access the invitation link: AcceptInvitation to [facility].4.Fill in the required orr to create your account. To access your account, visit [email or web address]. Click the blue button labeled Access Patient [...] who you will allowto register on the [facility] Patient Portal for access to your information. You can also access the [facility] Patient Portal on the [facility] frida. Simply click on Patient Portal and then log into your account. If you would like to receive a full copy of your medical records, please contact the [facility] Medical Records Department by calling [phone], Monday through Monday between 8 a.m. and [...] Call your local pharmacy or go to http://bit.[employer]5O8Wx5b to find one close to you.3.Make use of household items: Use cat litter or old coffee grounds to dispose medications if other options arenot available. Mix your drugs with these household products, seal them in an airtight container andthrow it into the garbage. Call [facility]: [phone] to be sure your drugs can be [...] COPY. Signatures Patient Education Materials Atrial Fibrillation, Plmg-wg-Wknl Medication Leaflets Selina My discharge plan and instructions have been reviewed and explained to me and I,SOCORRO KELLEY understand my current condition and have read and understand these discharge instructions. I have received awritten copy of the plan/instructions. If I have questions, I am aware that I should contact my doctor. 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: Relationship to Patient: Witness Name/Signature: Date/Time[id number] Discharge summary Date of Service 06/09/23 Discharge Diagnosis Other persistent atrial fibrillation (I48.19 - ICD-10-CM) Encounter for therapeutic drug level monitoring (Z51.81 - ICD-10-CM) Morbid (severe) obesity due to excess calories (E66.01 - ICD-10-CM) Hypertensive heart disease without heart failure (I11.9 - ICD-10-CM) Gastro-esophageal reflux disease without esophagitis (K21.9 - ICD-10-CM) correction (current) use of anticoagulants (Z79.01 - ICD-10-CM) Shortness of breath (R06.02 - ICD-10-CM) Additional Orders: Ordered: Communication Order (continuous),06/09/23 12:44:00 EST, ok to DC home after 5th dose of tikosyn this evening as long as QT is reviewed by production worker fellow, Constant order Ordered: Discharge,06/09/23 12:44:00 EST, [...] qDay, # 30 cap(s), 2 Refill(s), Pharmacy: [facility] #[id number], 176, cm, 06/07/23 13:36:00 EST, Height, kg, 06/07/23 13:36:00 EST, Dosing Weight Ordered: Tikosyn 250 mcg oral capsule,Dose : 250 mcg = 1 cap(s), Oral, BID, # 60 cap(s), 2 Refill(s), Pharmacy: [facility] #[id number], 176, cm, 06/07/23 13:36:00 EST, Height, kg, [...] When 07/07/2023 01:00 PM EST Where: [address] [facility] [address] [place] [address]- [phone] Follow Up with ISADORA CORREA When Why: PLEASE CALL THIS OFFICE TO SCHEDULE A HOSPITAL FOLLOW UP APPOINTMENT Where: [address] [place] [address]- [phone] Follow Up Appointments No qualifying data available. Follow Up Labs/Studies Discharge Labs No Follow-up Labs Discharge Studies No Follow-up Studies Discharge Diet Discharge Diet - Ordered -- Type of Diet: Cardiac, Sodium limit: 2 gm, 06/09/23 12:44:00 EST Discharge Activity No qualifying data available. Condition on Discharge stable Discharge Disposition home Digitally Signed by AMELIA RENAE MD on 06/09/2023 12:53 PM [facility] [id number] Discharge summary Date of Service 06/09/23 Discharge Diagnosis Other persistent atrial fibrillation (I48.19 - ICD-10-CM) Encounter for therapeutic drug level monitoring (Z51.81 - ICD-10-CM) Morbid (severe) obesity due to excess calories (E66.01 - ICD-10-CM) Hypertensive heart disease without heart failure (I11.9 - ICD-10-CM) Gastro-esophageal reflux disease without esophagitis (K21.9 - ICD-10-CM) correction (current) use of anticoagulants (Z79.01 - ICD-10-CM) Shortness of breath (R06.02 - ICD-10-CM) Additional Orders: Ordered: Communication Order (continuous),06/09/23 12:44:00 EST, ok to DC home after 5th dose of tikosyn this evening as long as QT is reviewed by production worker fellow, Constant order Ordered: Discharge,06/09/23 12:44:00 EST, [...] qDay, # 30 cap(s), 2 Refill(s), Pharmacy: [facility] #[id number], 176, cm, 06/07/23 13:36:00 EST, Height, kg, 06/07/23 13:36:00 EST, Dosing Weight Ordered: Tikosyn 250 mcg oral capsule,Dose : 250 mcg = 1 cap(s), Oral, BID, # 60 cap(s), 2 Refill(s), Pharmacy: [facility] #[id number], 176, cm, 06/07/23 13:36:00 EST, Height, kg, [...] Where: 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 Follow Up Labs/Studies Discharge Labs No Follow-up Labs Discharge Studies No Follow-up Studies Discharge Diet Discharge Diet - Ordered -- Type of Diet: Cardiac, Sodium limit: 2 gm, 06/09/23 12:44:00 EST Discharge Activity No qualifying data available. Condition on Discharge stable Discharge Disposition home Digitally Signed by AMELIA RENAE MD on 06/09/2023 12:53 PM [facility] [id number] NoteSINUS RHYTHM LEFT AXIS DEVIATION LOW VOLTAGE, PRECORDIAL LEADS PROLONGED QT INTERVAL POOR R-WAVE PROGRESSION Electronic Signature: SADE STRAUSS MD 06/09/2023 09:53:23[facility] 01-11-2024 Cardiology Progress note Date of Service [...] AMELIA RENAE MD on 06/08/2023 03:03 PM [facility] [id number] Cardiology Progress note Date of Service 06/08/23 [...] AMELIA RENAE MD on 06/08/2023 03:03 PM [facility] [id number] NoteSINUS RHYTHM LAD, CONSIDER LEFT ANTERIOR FASCICULAR BLOCK LOW VOLTAGE, PRECORDIAL LEADS BORDERLINE PROLONGED QT INTERVAL Poor R wave progression Electronic Signature: SADE STRAUSS MD 06/09/2023 09:53:37[facility] 01-10-2024 NoteSINUS RHYTHM BORDERLINE IVCD WITH LAD LOW VOLTAGE, PRECORDIAL LEADS CONSIDER ANTERIOR INFARCT Electronic Signature: SADE STRAUSS MD 06/08/2023 09:48:12[facility] 01-10-2024 History and physical note Date of [...] 107 ms, QT interval approximately 450 ms. MI interval 184 ms. Renal function, electrolytes pending. [...] AMELIA RENAE MD on 06/07/2023 04:29 PM [facility] [id number] NoteSINUS RHYTHM LAD, CONSIDER LEFT ANTERIOR FASCICULAR BLOCK LOW VOLTAGE, PRECORDIAL LEADS Electronic Signature: SADE STRAUSS MD 06/08/2023 09:47:58[facility] 01-10-2024 History and physical note Date of [...] 107 ms, QT interval approximately 450 ms. MI interval 184 ms. Renal function, electrolytes pending. [...] AMELIA RENAE MD on 06/07/2023 04:29 PM [id number] Evaluation + Plan noteExtracted from: Title:History and [...] Appointment Date:07/17/2023 03:15:00 PM Scheduled Provider:ZHOU ESPINOSA [facility] Appointment Type:CV OV Future Scheduled Tests Laboratory* Basic Metabolic Panel 04/01/23 * A1C Hemoglobin 06/09/23 * Lipid Profile 06/09/23 * Complete Metabolic Panel 06/09/23 [facility] 01-10-2024 NoteSINUS RHYTHM MARKEDLY POSTERIOR QRS AXIS LOW VOLTAGE, PRECORDIAL LEADS BORDERLINE PROLONGED QT INTERVAL Electronic Signature: SADE STRAUSS MD 06/08/2023 09:47:38[facility] 12-08-2023 Hospital Discharge instructions Patient Education 05/05/2023 [...] in vomit, stools (black or red color) 5933-7162 [employer]. [address] [place] [address]69. All rights reserved. This information is not [...] fainting Blood in your stool or urine 3565-6274 [employer]. [address] [place] [address] 13146. All rights reserved. This information is not [...] will help ease pain. You may use flmb-bes-vtxqlbj pain medicine such as acetaminophen or ibuprofen [...] suddenly or lasts more than an hour 6701-5590 [employer]. [address] [place] [address], [place] [address]. All rights reserved. This information is not intended as a substitute for professional medical care. Always follow yourhealthcare professional's instructions. Follow Up Care 05/05/2023 17:11:14 With:ISADORA CORREA Address: [address] [place] [address] [phone] Business (1) When:5-7 days Comments:Follow-up as needed if symptoms or not improving.Limit activity as tolerated.Ice/cold compresses topainful areas.Use Tylenol, Advil or Aleve for pain as needed.Use Molena as prescribed for severe pain as needed.Take 10 deep breaths on the incentive stridor every hour while awake for the next week as advised.Return to the ED if symptoms worsen. [facility] 12-08-2023 Note Discharge Instructions Thank you for allowing [facility] to assist you with your healthcare needs. [...] or Aleve for pain as needed. Use Molena as prescribed for severe pain as needed. Take 10 deep breaths on the incentive stridor every hour while awake for the next week as advised. Return to the ED if symptoms worsen. Where: [place] [address] [phone] Business (1) Allergies NKA Medications Please ask your primary doctor or pharmacist before taking any other medication not listed, including over the counter drugs, herbal medications, vitamins and or supplements as they may interact withyour home medications. What How Much When Why Instructions Last Dose New acetaminophen-hydrocodone (Molena 325- 5 mg oral tablet) 1 tab(s) [...] cancer screening As directed by provider at [facility]. Unchanged rivaroxaban (Xarelto 20 mg oral tablet) [...] may report side effects to FDA at 5-987-RJQ-9339. What other drugs will affect acetaminophen and [...] affect acetaminophen and hydrocodone, including prescription and hyfb-tvj-mrbfzqc medicines, vitamins, and herbal products. Not all [...] to ensure that the information provided by [facility] [employer]. ('Mult[employer]') is accurate, up-to-date, and complete, but no guarantee is made to that effect. Drug information contained herein may be time sensitive. [employer] information has been compiled for use by healthcare practitioners and consumers in the [place] and therefore [employer] does not warrant that uses outside of the [place] are appropriate, unless specifically indicated otherwise. [employer] drug information does not endorse drugs, diagnose patients or recommend therapy. [employer] drug information isan informational resource designed to [...] effective or appropriate for any given patient. [employer] does not assume any responsibility for any aspect of healthcare administered with the aid of information [employer] provides. The information contained herein is not intended to cover all possible uses, directions, precautions, warnings, drug interactions, allergic reactions, or adverse effects. If you have questions about the drugs you are taking, check with your doctor, nurse or pharmacist. Copyright 9964-6377 [facility] [employer]. Version: 19.. Revision Date: 01/16/2023. Education Materials [...] in vomit, stools (black or red color) 5884-1082 [employer]. [address] [place] [address] 48071. All rights reserved. This information is not [...] fainting Blood in your stool or urine 4788-8869 [employer]. [address] [place] [address], [place] [id number]. All rights reserved. This information is not [...] will help ease pain. You may use bcif-qkz-wpajocr pain medicine such as acetaminophen or ibuprofen [...] suddenly or lasts more than an hour 6821-7302 [employer]. [address] [place] [address], [place] [address]. All rights reserved. This information is not intended as a substitute for professional medical care. Always follow yourhealthcare professional's instructions. Additional Information VACCINATE! IT SAVES LIVES! Members of the community who have not yet received the COVID-19 vaccine and would like to receive it can visit one of [place] vaccine clinics. There are many vaccine clinic locations within the State. For locations and available times, please visit www.gettheshot.coronavirus.[place].gov/. It is important to note that some COVID mobile vaccine clinics are held outdoors and may be canceled in rainy or stormy conditions. To learn more about pediatric vaccinations (ages 5-11), we invite you to visit the [facility] webpage. https://www.[facility].org/pages/3027-Edoki-Vaziuwnbsbj-Yjkxfyrqwg-Uioeb-Epr stions.htmlTo learn more about the COVID-19 vaccine, we invite you to visit the CDC website for a list of frequently asked questions. https://www.cdc.gov/coronavirus/2019-ncov/vaccines/faq.html Outlisten Patient Portal Access Instructions: Stay connected with your healthcare team and access your personal medical information anytime with the [facility] Patient Portal. If you would like a full copy of your medical records please contact the [facility] Medical Records Department Monday through Monday between 8a.m. and 4:30p.m. Please follow the directions below to access the portal: 1.Access the email account you provided upon registration to the hospital.2.Look for an invitation email from [facility].3.Open the email and access the invitation link: Accept Invitation to [facility]4.Fill in the required orr to create your account. Sign into [email or web address] with your username and password that you [...] you will allow to register on the [facility] Patient Portal for access to your information. You can also access the [facility] Patient Portal on the [employer] frida. Simply click on Health Records under Plan [employer] Funding and then click on the N[employer]ang Network logo. HOW TO SAFELY DISPOSE OF PRESCRIPTION [...] Call your local pharmacy or go to http://SafetyWeb.[employer]2K5Nb4h to find one close to you.3.Make use of household items: Use cat litter or old coffee grounds to dispose medications if other options arenot available. Mix your drugs with these household products, seal them in an airtight container andthrow it into the garbage. Call [facility]: [phone] to be sure your drugs can be [...] aware that I should contact my doctor. 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: Relationship to Patient: Witness Name/Signature: Date/Time: [facility]12-08-2023 Note ORIGINAL EXAMINATION: 2 XRAY VIEWS OF [...] Sign Date: 05/05/2023 9:08:30 PM Ordering Provider: [facility]12-08-2023 Note ORIGINAL EXAMINATION: ONE XRAY VIEW OF [...] Date: 05/05/2023 9:17:04 PM [facility] * Exam Date Time Procedure Performing Provider Status 04/03/23 9:43 AM Echocardiogram, Adult (AOH) Auth (Verified) [facility] 07-28-2023 Hospital Discharge instructions Patient Education 12/23/2022 [...] Document Reviewed: 05/16/2014 ExitCare Patient Information 2015 [facility], [employer]. This information is not intended to replace [...] before eating solid foods. General instructions Take zxjj-vcr-cbukmkb and prescription medicines only as told by [...] 09/04/2016 Document Revised: 08/13/2018 Document Reviewed: 09/04/2016 Idylis Patient Education 2020 [employer] Follow Up Care 12/07/2022 09:52:07 With:ZHOU ESPINOSA HSE MANAGER-REFRIGERATION ENGINEER Address: [address] [place] [address] [address] [facility] [place] [address]- [phone] When: Unknown Comments:Follow-up as scheduled [facility] 07-28-2023 Note Discharge Instructions Thank you for allowing [facility] to assist you with your healthcare needs. The following is importantdischarge information regarding your hospital visit. Your Care Team ISADORA CORREA Your Diagnosis AF (atrial fibrillation) What to do next Scheduled Follow-Up Appointments Appointment Type When With Where Contact InformationPC OV 02/07/2023 02:30 PM EDT ISADORA CORREA [facility] Follow Up Appointments Follow Up with ZHOU ESPINOSA When Why: Follow-up as scheduled Where: [address] [facility] [address] [facility] [place] [address]- [phone] Allergies NKA Medications Please ask your primary doctor or pharmacist before taking any other medication not listed, including over the counter drugs, herbal medications, vitamins and or supplements as they may interact withyour home medications. What How Much When Instructions Last Dose New losartan (losartan 100 mg oral tablet) 1 tab(s) by mouth Once a day Refills: 6 Pickup at [id number] Changed metoprolol (Toprol-XL 50 mg oral tablet, extended release) 1 tab(s) by mouth Two (2) times a day Pickup at [id number] Unchanged allopurinol (allopurinol 100 mg oral tablet) [...] Duration: 14 Days Pharmacy Information [id number]: [address], [place] [id number] [phone] What How Much When Comments Stop Taking [...] Document Reviewed: 05/16/2014 ExitCare Patient Information 2015 [employer]. This information is not intended to replace [...] before eating solid foods. General instructions Take wyfj-via-bgirxdo and prescription medicines only as told by [...] Document Reviewed: 09/04/2016 Elsevier Patient Education 2020 [employer]. Additional Information VACCINATE! IT SAVES LIVES! Members of the community who have not yet received the COVID-19 vaccine and would like to receive it can visit one of [place] vaccine clinics. There are many vaccine clinic locations within the [facility]. For locations and available times, please visit https://gettheshot.coronavirus.[place].gov/. It is important to note that some COVID mobile vaccine clinics are held outdoors and may be canceled in rainy or stormy conditions. To learn more about pediatric vaccinations (ages 5-11), we invite you to visit the [facility] webpage. https://www.Hardscore Gamess.org/pages/5237-Ubxzc-Lpyrexzkxga-Yponsbpyrp-Kjubx-Zpj stions.htmlTo learn more about the COVID-19 vaccine, we invite you to visit the CDC website for a list of frequently asked questions.https://www.cdc.gov/coronavirus/2019-ncov/vaccines/faq.html Outlisten Patient Portal Access Instructions: Stay connected with your healthcare team and access your personal medical information anytime with the Outlisten Patient Portal. Please follow the directions below to create your Outlisten account: 1.Access the email account you provided upon registration to the hospital/physician office.2.Look for an invitation email from [facility].3.Open the email and access the invitation link: AcceptInvitation to Outlisten.4.Fill in the required orr to create your account. To access your account, visit Leveler/Nongxiang NetworkOneChart. Click the blue button labeled Access Patient [...] who you will allowto register on the [facility] MyJobCompanyChart Patient Portal for access to your information. You can also access the [facility] Portal on the [facility] Anywhere frida. Simply click on Patient Portal and then log into your account. If you would like to receive a full copy of your medical records, please contact the [facility] Medical Records Department by calling [phone], Monday through Monday between 8 a.m. and [...] Call your local pharmacy or go to [email or web address] to find one close to you.3.Make use of household items: Use cat litter or old coffee grounds to dispose medications if other options arenot available. Mix your drugs with these household products, seal them in an airtight container andthrow it into the garbage. Call [facility]: [phone] to be sure your drugs can be [...] aware that I should contact my doctor. 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: Relationship to Patient: Witness Name/Signature: Date/Time: [facility]07-28-2023 Anesthesiology Consult note Patient: SOCORRO KELLEY Age: 52 years Sex: Male : 1970 Associated Diagnoses: None Author: BRAULIO WRIGHT APRN-ANIMATION ARTIST Assessment Postanesthesia assessment Vitals: Vital signs from [...] by BRAULIO WRIGHT on 12/23/2022 07:23 AM [facility]07-28-2023 Anesthesiology Consult note Patient: SOCORRO KELLEY Age: [...] Problem list: Medical Anxiety / SNOMED CT 22717244 / Confirmed Atopic dermatitis / SNOMED CT 55821968 / Confirmed BMI 45.0-49.9, adult / SNOMED CT 7391340768 / Confirmed Diabetes mellitus / SNOMED CT 867013595 / Confirmed Hypertension / SNOMED CT 0123334739 / Confirmed Insomnia / SNOMED CT 908105260 / Confirmed Morbid obesity / SNOMED CT 477294040 / Confirmed Chewing tobacco nicotine dependence / SNOMED CT 43334661 / Confirmed Obstructive sleep apnea / SNOMED CT 168421377 / Confirmed Screening for ischemic heart disease / SNOMED CT 101161846 / Confirmed Persistent atrial fibrillation / SNOMED CT 8982136326 / Confirmed Prediabetes / SNOMED CT 2319071581 / Confirmed, Active Problems (16) Anxiety Atopic [...] History: History is unknown. Procedure history: Elbow ([id number]). Comments: 07/11/2022 8:26 SHAHEEN Nunez - right [...] patch - 12/13/2022 14:44 - Sue Mcgregor ONLINE FACILITATOR Nutrition/Health 12/23/2022 Caffeine intake amount: pop 3 daily . Physical Examination Vital Signs 12/23/2022 6:34 EDT Temperature Temporal Artery 35.3 DegC Peripheral Pulse Rate 85 bpm Respiratory Rate 20 br/min Systolic Blood Pressure Non-Invasive 103 mmHg Diastolic Blood Pressure Non-Invasive 76 mmHg Vital Signs(last 24 hrs) Last Charted Resp Rate 20 br/min (DEC 23 06:34) IRO322 mmHg (DEC 23 06:34) DBP76 mmHg (DEC 23 06:34) Measurements from flowsheet : Measurements 12/23/2022 6:37 EDT Height 175.3 cm [place] Body Weight 70.74 kg 12/23/2022 6:34 EDT Height 175.3 cm Admission Weight 144 kg [place] Body Weight 70.74 kg Admission Body Mass [...] Surgeon SN - CAt - Role Performed Chucking Machine Set Up Operator 1 SN - CAt - Role Performed ANIMATION ARTIST 12/23/2022 6:49 EDT Wrist Left 12/23/2022 20 [...] Person #1 We May Share YAW OSPINA [phone] Designated Person #1 Relationship Sibling Height 175.3 cm [place] Body Weight 70.74 kg Status N/A Sensory [...] evident Teaching Method Explanation Preferred Spoken Language Namibian Preferred Written Language Namibian Information Given by Patient Patient's Current Physicians Patient's Current Physicians Discharge To, Anticipated Home independently Prev Test Positive/Diagnosis w/COVID-19 No Current Quarantine/Isolated any Illness No Any Contact with Sick Animals/Birds No Traveled Anywhere in Last 30 Days No N/A Personal Devices, Patient Valuables None Admission Note-Nursing Procedure/Therapy Intake 12/23/2022 6:34 EDT Height 175.3 cm Admission Weight 144 kg [place] Body Weight 70.74 kg Admission Body Mass [...] Ordered (In Progress) . Assessment and Plan [place] Society of Anesthesiologists (ASA) physical status classification: Class III. Anesthetic Preoperative Plan Anesthetic technique: MAC. Informed consent: signed by patient. Digitally Signed by BRAULIO WRIGHT on 12/23/2022 07:21 AM [facility]06-01-2023 Hospital Discharge instructions Patient Education 10/27/2022 06:39:29 [...] Swelling, pain or redness in one leg 7823-0554 [employer]. [address] [place] [address]. All rights reserved. This information is not [...] very fast heart rate Loss of consciousness 8331-0676 [employer]. [address] [place] [address], [place] [address]. All rights reserved. This information is not intended as a substitute for professional medical care. Always follow yourhealthcare professional's instructions. Follow Up Care 10/27/2022 05:02:35 With:ISADORA CORREA Address: [address] [facility] [place] [phone] Business (1) When:2-4 days Comments:Follow close with your doctor, continue medications, return if any worsening or concerning symptoms. [facility] 06-01-2023 Note Discharge Instructions Thank you for [...] concerning symptoms. Where: [address] [facility] [place] [address]- [phone] Business (1) Allergies NKA Medications Please ask [...] pain or redness in one leg [employer]. [address] [place] [address]. All rights reserved. This information is not [...] fast heart rate Loss of consciousness [employer]. [address] [place] [address]97. All rights reserved. This information is not intended as a substitute for professional medical care. Always follow yourhealthcare professional's instructions. Additional Information VACCINATE! IT SAVES LIVES! Members of the community who have not yet received the COVID-19 vaccine and would like to receive it can visit one of [place] vaccine clinics. There are many vaccine clinic locations within the [facility]. For locations and available times, please visit www.gettheshot.coronavirus.[place].gov/. It is important to note that some COVID mobile vaccine clinics are held outdoors and may be canceled in rainy or stormy conditions. To learn more about pediatric vaccinations (ages 5-11), we invite you to visit the [facility] webpage. https://www.[facility].org/pages/2662-Erwzm-Uhkroamkvkn-Bvxdmcywlv-Ecnwr-Epr stions.htmlTo learn more about the COVID-19 vaccine, we invite you to visit the CDC website for a list of frequently asked questions. https://www.cdc.gov/coronavirus/2019-ncov/vaccines/faq.html [facility] Patient Portal Access Instructions: Stay connected with your healthcare team and access your personal medical information anytime with the [facility] Patient Portal. If you would like a full copy of your medical records please contact the [facility] Medical Records Department Monday through Monday between 8a.m. and 4:30p.m. Please follow the directions below to access the portal: 1.Access the email account you provided upon registration to the hospital.2.Look for an invitation email from [facility].3.Open the email and access the invitation link: Accept Invitation to [facility]4.Fill in the required orr to create your account. Sign into www.Leveler with your username and password that you [...] you will allow to register on the [facility] Patient Portal for access to your information. You can also access the [facility] Patient Portal on the CoverItLive. Simply click on Health Records under GetO2ta and then click on the [facility] logo. [...] Call your local pharmacy or go to http://SafetyWeb.[employer]7V6Dx9l to find one close to you.3.Make use of household items: Use cat litter or old coffee grounds to dispose medications if other options arenot available. Mix your drugs with these household products, seal them in an airtight container andthrow it into the garbage. Call [facility]: [phone] to be sure your drugs can be [...] aware that I should contact my doctor. 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 4955-6445 [employer]. [address] [place] [address]. All rights reserved. This information is not intended as a substitute for professional medical care. Always follow [facility] professional's instructions. 10/25/2022 01:25:36 Atrial Fibrillation Atrial [...] vision Extreme drowsiness, confusion, dizziness, or fainting 2644-4246 [employer]. [address] [place] [address], [place] [address]. All rights reserved. This information is not [...] Swelling, pain or redness in one leg 6349-2299 [employer]. [address] [place] [address]689. All rights reserved. This information is not [...] veins, fluid leaks out into the tissues. Gaffney then causes that fluid to move to [...] away Feeling much more tired than usual 8140-[address] [employer] [place] [address]53. All rights reserved. This information is not intended as a substitute for professional medical care. Always follow yourhealthcare professional's instructions. Follow Up Care 10/24/2022 23:09:33 With:Call Physician Referral Address:Unknown When:2-4 days Comments:Call for referral to establish a primary care doctor you can see on a regular basis. With:SADE STRAUSS Address: [address] [facility] [address] [facility] [place] [phone] Business (1) When:2-4 days Comments:Schedule an appointment to establish a program engagement director you can see on a regular basis.Double your doseof Lasix from 20 mg once a day to 20 mg twice a day.Continue all other routine medications including the ones you were recently prescribed from [facility].Use potassium supplement and sleep aid (trazodone) as prescribed.Return to the ED if symptoms worsen. [facility] 05-30-2023 Note Discharge Instructions Thank you for allowing [facility] to assist you with your healthcare needs. [...] Why: Schedule an appointment to establish a program engagement director you can see on a regular basis. Double your dose of Lasix from 20 mg once a day to 20 mg twice a day. Continue all other routine medications including the ones you were recently prescribed from [facility]. Use potassium supplement and sleep aid (trazodone) as prescribed. Return to the ED if symptoms worsen. Where: [address] [facility] [place] [phone] Business (1) Allergies NKA Medications Please ask [...] may report side effects to FDA at [phone]. What other drugs will affect potassium chloride? Tell your doctor about all your other medicines, especially: medicine to prevent organ transplant rejection; a diuretic or 'water pill'; or heart or blood pressure medication. This list is not complete. Other drugs may affect potassium chloride, including prescription and sxln-mpx-gzuhfny medicines, vitamins, and herbal products. Not all [...] to ensure that the information provided by [facility]. ('Mult[employer]') is accurate, up-to-date, and complete, but no guarantee is made to that effect. Drug information contained herein may be time sensitive. [employer] information has been compiled for use by healthcare practitioners and consumers in the [place] and therefore [employer] does not warrant that uses outside of the [place] are appropriate, unless specifically indicated otherwise. [employer] drug information does not endorse drugs, diagnose patients or recommend therapy. [employer] drug information isan informational resource designed to [...] effective or appropriate for any given patient. [employer] does not assume any responsibility for any aspect of healthcare administered with the aid of information [employer] provides. The information contained herein is not intended to cover all possible uses, directions, precautions, warnings, drug interactions, allergic reactions, or adverse effects. If you have questions about the drugs you are taking, check with your doctor, nurse or pharmacist. Copyright 0020-6490 [facility]. Version: 14.01. Revision Date: 10/24/2019. trazodone (TRAZ [...] may report side effects to FDA at 2-087-PGL-2203. What other drugs will affect trazodone? Using trazodone with other drugs that make you drowsy can worsen this effect. Ask your doctor before using opioid medication, a sleeping pill, a muscle relaxer, or medicine for anxiety or seizures. Tell your doctor about all your current medicines. Many drugs can affect trazodone, especially: any other antidepressants; phenytoin; Obion's wort; tramadol; a diuretic or 'water pill'; medicine to treat anxiety, mood disorders, or mental illness such as schizophrenia; a blood thinner--warfarin, Coumadin, Jantoven; or migraine headache medicine--sumatriptan, Imitrex, Maxalt, Treximet, and others. This list is not complete and many other drugs may affect trazodone. This includes prescription kaaxmtp-gns-uxiddzo medicines, vitamins, and herbal products. Not all [...] to ensure that the information provided by [facility]. ('[employer]') is accurate, up-to-date, and complete, but no guarantee is made to that effect. Drug information contained herein may be time sensitive. [employer] information has been compiled for use by healthcare practitioners and consumers in the [place] and therefore [employer] does not warrant that uses outside of the [place] are appropriate, unless specifically indicated otherwise. [employer]'s drug information does not endorse drugs, diagnose patients or recommend therapy. [employer] drug information isan informational resource designed to [...] effective or appropriate for any given patient. [facility] does not assume any responsibility for any aspect of healthcare administered with the aid of information [facility] provides. The information contained herein is not intended to cover all possible uses, directions, precautions, warnings, drug interactions, allergic reactions, or adverse effects. If you have questions about the drugs you are taking, check with your doctor, nurse or pharmacist. Copyright 4030-3709 [employer]17u.cn. Version: 10.04. Revision Date: 11/09/2020. Education Materials [...] your body to your neck and face. 2762-3340 [employer]. [address] [place] [address]. All rights reserved. This information is not [...] vision Extreme drowsiness, confusion, dizziness, or fainting 9667-9968 [employer]. [address] [place] [address]. All rights reserved. This information is not [...] Swelling, pain or redness in one leg 6491-2829 [employer]. [address] [place] [address]. All rights reserved. This information is not [...] veins, fluid leaks out into the tissues. Gaffney then causes that fluid to move to [...] away Feeling much more tired than usual 7168-4331 [employer]. [address] [place] [address]. All rights reserved. This information is not intended as a substitute for professional medical care. Always follow yourhealthcare professional's instructions. Additional Information VACCINATE! IT SAVES LIVES! Members of the community who have not yet received the COVID-19 vaccine and would like to receive it can visit one of [place] vaccine clinics. There are many vaccine clinic locations within the [facility]. For locations and available times, please visit www.gettheshot.coronavirus.[place].gov/. It is important to note that some COVID mobile vaccine clinics are held outdoors and may be canceled in rainy or stormy conditions. To learn more about pediatric vaccinations (ages 5-11), we invite you to visit the [facility] webpage. https://www.[facility].org/pages/6634-Khlhs-Eovimgakomz-Kswaivinld-Pyrsx-Pln stions.htmlTo learn more about the COVID-19 vaccine, we invite you to visit the CDC website for a list of frequently asked questions. https://www.cdc.gov/coronavirus/2019-ncov/vaccines/faq.html [facility] Patient Portal Access Instructions: Stay connected with your healthcare team and access your personal medical information anytime with the [facility] Patient Portal. If you would like a full copy of your medical records please contact the [facility] Medical Records Department Monday through Monday between 8a.m. and 4:30p.m. Please follow the directions below to access the portal: 1.Access the email account you provided upon registration to the [facility].2.Look for an invitation email from [facility].3.Open the email and access the invitation link: Accept Invitation to [facility]4.Fill in the required orr to create your account. Sign into [email or web address] with your username and password that you [...] you will allow to register on the [facility] Patient Portal for access to your information. You can also access the [facility] Patient Portal on the [employer] frida. Simply click on Health Records under GetO2ta and then click on the [employer] logo. HOW TO SAFELY DISPOSE OF PRESCRIPTION [...] Call your local pharmacy or go to http://SafetyWeb[employer]0R8Wj7b to find one close to you.3.Make use of household items: Use cat litter or old coffee grounds to dispose medications if other options arenot available. Mix your drugs with these household products, seal them in an airtight container andthrow it into the garbage. Call [facility]: [phone] to be sure your drugs can be [...] aware that I should contact my doctor. 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 Lungs/pleura: Small bilateral pleural effusions floor layer dependently. There is more fluid on the [...] Date: 10/25/2022 1:09:48 AM Ordering Provider: [facility]05-30-2023 Note ORIGINAL EXAMINATION: CTA OF THE CHEST [...] aortic dissection. Lungs/pleura: Small bilateral pleural effusions floor layer dependently. There is more fluid on the [...] Sign Date: 10/25/2022 1:09:48 AM Ordering Provider: [facility]05-29-2023 Note ORIGINAL EXAMINATION: ONE XRAY VIEW OF [...] Sign Date: 10/24/2022 11:56:09 PM Ordering Provider: [facility]05-29-2023 Note ORIGINAL EXAMINATION: ONE XRAY VIEW OF [...] Sign Date: 10/24/2022 11:56:09 PM Ordering Provider: [facility]05-28-[address] Sarath Kothari [facility] October 23, 2022 10:40am Note Date/Time October 23, 2022 6:48a m [facility] Medical Records Department [address] [place] [address] Emergency Department Summary 10/23/22 MR#: [id number] Acct: [id number] Name: SOCORRO KELLEY Jr. Rep #:[id number] : 1970 52 From: Jameel Brown DO [...] gets short of breath. Patient states his program engagement director is a Dr. Barr out of [facility]. [facility] Medical History (Updated 10/23/22 @ 06:09 by [...] IV and his heart rate is now . CBC shows no leukocytosis. Hemoglobin macular stable. [...] % (Auto) 67.9 Lymph % (Auto) 19.0 Steele % (Auto) 9.6 Eos % (Auto) 2.4 [...] your Primary Care Provider. Call [facility] ([phone]) or report to the closest Emergency Room. Call 911 if necessary. 10/23/22 6351 <Electronically signed by Jameel Brown DO> Cosigner Signature (if applicable): CC: ZACARIAS COHN ~ Signed ADDENDUM by Dr. Jose A Clemens MD on 10/23/22 at 0759 Patient care was transferred to [place] at 0710. Patient presented because of palpitations discomfort right side of his chest with shortness of breath. Patient does have history of congestive heart failure and atrial fibrillation. He has relocated from [place]. He does not have a local program engagement director. Patient has not taken his Xarelto for [...] (if applicable): cc: ZACARIAS COHN ~* Signed [facility] Work Phone: [phone]) 767-803102-17-2023 Hospital Discharge instructions Patient Education 07/15/2022 21:17:24 [...] temperature. Use toothpaste made for sensitive teeth. [place] gently up and down instead of sideways. Brushing sideways can wear away root surfaces if they are exposed. If your tooth is chipped or cracked, or if there is a large open cavity, put oil of cloves directlyon the tooth to relieve pain. You can buy oil of cloves at [employer]. Some pharmacies carry an quxp-bld-caaajny toothache kit. This contains a paste that you can put on the exposed tooth to make it less sensitive. Put a cold pack on your jaw over the sore area to help reduce pain. You may use qbpv-txi-ixkfbrr medicine to ease pain, unless your doctor [...] healthcare provider Pus drains from the tooth 9902-6653 [employer]. [address] [place] [address], [place] [address]. All rights reserved. This information is not intended as a substitute for professional medical care. Always follow yourhealthcare professional's instructions. Follow Up Care 07/15/2022 20:40:26 With:Dental Referral List Address: When:2-4 days [facility] 02-17-2023 Note Discharge Instructions Thank you for allowing [facility] to assist you with your healthcare needs. [...] When Why Instructions Last Dose New acetaminophen-hydrocodone (Molena 325- 5 mg oral tablet) 1 tab(s) [...] temperature. Use toothpaste made for sensitive teeth. [place] gently up and down instead of sideways. Brushing sideways can wear away root surfaces if they are exposed. If your tooth is chipped or cracked, or if there is a large open cavity, put oil of cloves directlyon the tooth to relieve pain. You can buy oil of cloves at drugstores. Some pharmacies carry an phvu-yot-ckjtate toothache kit. This contains a paste that you can put on the exposed tooth to make it less sensitive. Put a cold pack on your jaw over the sore area to help reduce pain. You may use nlyt-idx-zxzusec medicine to ease pain, unless your doctor [...] healthcare provider Pus drains from the tooth 6816-1868 [employer]. [address] [place] [address]. All rights reserved. This information is not intended as a substitute for professional medical care. Always follow yourhealthcare professional's instructions. Additional Information VACCINATE! IT SAVES LIVES! Members of the community who have not yet received the COVID-19 vaccine and would like to receive it can visit one of [place] vaccine clinics. There are many vaccine clinic locations within the [facility]. For locations and available times, please visit www.gettheshot.coronavirus.[place].gov/. It is important to note that some COVID mobile vaccine clinics are held outdoors and may be canceled in rainy or stormy conditions. To learn more about pediatric vaccinations (ages 5-11), we invite you to visit the [facility] webpage. https://www.[facility].org/pages/8867-Oijhe-Bdmlztpfvmp-Zlrcdclwhm-Hmlnl-Qzm stions.htmlTo learn more about the COVID-19 vaccine, we invite you to visit the CDC website for a list of frequently asked questions. https://www.cdc.gov/coronavirus/2019-ncov/vaccines/faq.html [facility] Patient Portal Access Instructions: Stay connected with your healthcare team and access your personal medical information anytime with the [facility] Patient Portal. If you would like a full copy of your medical records please contact the [facility] Medical Records Department Monday through Monday between 8a.m. and 4:30p.m. Please follow the directions below to access the portal: 1.Access the email account you provided upon registration to the [facility].2.Look for an invitation email from [facility].3.Open the email and access the invitation link: Accept Invitation to [facility]4.Fill in the required orr to create your account. Sign into [email or web address] with your username and password that you [...] you will allow to register on the [facility] Patient Portal for access to your information. You can also access the [facility] Patient Portal on the [employer] frida. Simply click on Health Records under GetO2ta and then click on the [employer] logo. HOW TO SAFELY DISPOSE OF PRESCRIPTION [...] Call your local pharmacy or go to http://bit.ly/3P8Kr6c to find one close to you.3.Make use of household items: Use cat litter or old coffee grounds to dispose medications if other options arenot available. Mix your drugs with these household products, seal them in an airtight container andthrow it into the garbage. Call [facility]: [phone] to be sure your drugs can be [...] aware that I should contact my doctor. 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 You may use flar-hwy-xgdpgoj pain medicine to control pain, unless another [...] hand becomes cold, blue, numb, or tingly 9978-3029 [employer]. [address] [place] [address]. All rights reserved. This information is not intended as a substitute for professional medical care. Always follow yourhealthcare professional's instructions. Follow Up Care 07/11/2022 08:20:34 With:DO MELISSA COHN DO Address: [address] [place] [phone] When:3-7 days With:Go to emergency room if symptoms worsen Address:Unknown When:2-4 days [facility] 02-13-2023 Note Discharge Instructions Thank you for allowing [facility] to assist you with your healthcare needs. [...] COHN DO When Within 3-7 days Where: [address] [place] [phone] Follow Up with Go to emergency [...] alternate ice and heat. You may use utci-xqv-erbpbnh pain medicine to control pain, unless another [...] hand becomes cold, blue, numb, or tingly 3743-6705 [employer]. [address] [place] [address], [place] [address]. All rights reserved. This information is not intended as a substitute for professional medical care. Always follow yourhealthcare professional's instructions. Additional Information VACCINATE! IT SAVES LIVES! Members of the community who have not yet received the COVID-19 vaccine and would like to receive it can visit one of [place] vaccine clinics. There are many vaccine clinic locations within the [facility]. For locations and available times, please visit www.gettheshot.coronavirus.[place].org. It is important to note that some COVID mobile vaccine clinics are held outdoors and may be canceled in rainy orstormy conditions. To learn more about pediatric vaccinations (ages 5-11), we invite you to visit the [facility] webpage. https://www.[facility].org/pages/3043-Fsyug-Etesbvaukxg-Jymztlpxxw-Zpbfp-Eaw stions.htmlTo learn more about the COVID-19 vaccine, we invite you to visit the [facility] website for a list of frequently asked questions. https://larry.org/assets/Ajcdbceq-ukh-Oanqzcpw/setlb-Cqiggse-Gzrzjupdlv _Asked-Questions.pdf [facility] Patient Portal Access Instructions: Stay connected with your healthcare team and access your personal medical information anytime with the [facility] Patient Portal. If you would like a full copy of your medical records please contact the [facility] Medical Records Department Monday through Monday between 8a.m. and 4:30p.m. Please follow the directions below to access the portal: 1.Access the email account you provided upon registration to the hospital.2.Look for an invitation email from [facility].3.Open the email and access the invitation link: Accept Invitation to [facility]4.Fill in the required orr to create your account. Sign into [email or web address] with your username and password that you [...] you will allow to register on the [facility] Patient Portal for access to your information. You can also access the [facility] Patient Portal on the [employer]. Simply click on Health Records under GetO2ta and then click on the [employer] logo. HOW TO SAFELY DISPOSE OF PRESCRIPTION [...] Call your local pharmacy or go to http://SafetyWeb[employer]9A6Hj4w to find one close to you.3.Make use of household items: Use cat litter or old coffee grounds to dispose medications if other options arenot available. Mix your drugs with these household products, seal them in an airtight container andthrow it into the garbage. Call [facility]: [phone] to be sure your drugs can be [...] aware that I should contact my doctor. 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: Relationship to Patient: Witness Name/Signature: Date/Time: [facility]02-13-2023 Note ORIGINAL EXAMINATION: THREE XRAY VIEWS OF [...] 07/11/2022 8:51:46 AM Ordering Provider: MALORIE PEGUERO [facility]02-13-2023 Note ORIGINAL EXAMINATION: THREE XRAY VIEWS OF [...] Sign Date: 07/11/2022 8:51:46 AM Ordering Provider: [facility]09-12-[address] [place] [address] PERSONAL HISTORY AND PHYSICAL : [phone] Signed Name: WARRENAnali SENIORSOCORRO [facility]#: [id number] MRUN: [id number] : 1970 Loc: ENDO Age / Sex: 51/ M Adm Status: PRE [facility] Adm Date:02/15/22 Room/Bed: A 51-year-old patient of [facility] in [place], who comes to discuss endoscopy. He has [...] us for the appropriate day. Dictated By: eMlissa Ayala MD 02/24/22 0847 Dictated Date/Time: 02/07/22 1659 Transcribed Date/Time: 02/07/22 1716[facility] Anesthesiology Consult note* CIRILO MCDONOUGH DO: PERFORM, [...] device, # 1 EA, 0 Refill(s), Pharmacy: [facility], 177.8, cm, 11/28/23 13:54:00 EDT, Height, 151.4, kg, 11/28/23 13:54:00 EDT, Dosin... Blood Glucose Test Strips: See Instructions, 1 bottle of 100 Test once daily, # 1 EA, 11 Refill(s), Pharmacy: [facility], 177.8, cm, 11/28/23 13:54:00 EDT, Height, 151.4, kg, 11/28/23 13:54:00 EDT, Dosing Weight FLUoxetine 20 mg oral capsule: Dose : 20 mg = 1 cap(s), Oral, qDay, # 30 cap(s), 3 Refill(s), Pharmacy: [facility], 177.8, cm, 11/28/23 13:54:00 EDT, Height, kg, 11/28/23 13:54:00 EDT,Dosing Weight Lancets: See Instructions, qs 1 month supply Test once daily, # 1 EA, 11 Refill(s), Pharmacy: [facility], 177.8, cm, 11/28/23 13:54:00 EDT, Height, 151.4, kg, 11/28/23 13:54:00 EDT, Dosing Weight Lasix 40 mg oral tablet: See Instructions, 1 tab in AM and 0.5 tab in PM, # 135 tab(s), 3 Refill(s), Pharmacy: [facility], 177.8, cm, 11/28/23 13:54:00 EDT, Height, kg, 11/28/23 13:54:00 EDT, Dosing Weight Symbicort 80 mcg-4.5 mcg/inh Inhaler: Dose = 2 puff(s), Inhalation, BID, # 10.2 gram(s), 3 Refill(s), Pharmacy: [facility], 177.8, cm, 11/28/23 13:54:00 EDT, Height, kg, 11/28/23 13:54:00 EDT, Dosing Weight Tikosyn 250 mcg oral capsule: Dose : 250 mcg = 1 cap(s), Oral, BID, # 180 cap(s), 3 Refill(s), Pharmacy: [facility]/pharmacy #[id number], 177.8, cm, 11/28/23 13:54:00 EDT, Height, kg, 11/28/23 13:54:00 EDT, Dosing Weight Toprol-XL 100 mg oral tablet, extended release: Dose : 100 mg = 1 tab(s), Oral, BID, do not crush or chew, # 180 tab(s), 3 Refill(s), Pharmacy: [facility], Shortness of breath, 177.8, cm, 11/28/23 13:54:00 EDT, Height, kg, 11/28/23 13:54:00 EDT, Dosing Weight Trulicity Pen 1.5 mg/0.5 mL subcutaneous solution: Dose : 1.5 mg =, Subcutaneous, qWeek, sent in absence of PCP, # 4 EA, 3 Refill(s), Pharmacy: [facility], 177.8, cm, 11/28/23 13:54:00EDT, Height, kg, 11/28/23 13:54:00 EDT, Dosing Weight Vistaril 25 mg oral capsule: Dose : 25 mg = 1 cap(s), Oral, QID, PRN as needed for anxiety, X 30 day(s), # 120 cap(s), 5 Refill(s), 06/09/24 16:10:00 EST, Pharmacy: [facility], 177.8, cm, 11/28/23 13:54:00 EDT, Height, kg, 11/28/23 13:54:00 EDT, Dosing Weight Xarelto 20 mg oral tablet: Dose : 20 mg = 1 tab(s), Oral, qHS, # 90 tab(s), 3 Refill(s), Pharmacy: [facility], 177.8, cm, 11/28/23 13:54:00 EDT, Height, 151.4, kg, 11/28/23 13:54:00 EDT, Dosing Weight allopurinol 100 mg oral tablet: Dose : 100 mg = 1 tab(s), Oral, qDay, # 90 tab(s), 3 Refill(s), Pharmacy: [facility], 177.8, cm, 11/28/23 13:54:00 EDT, Height, kg, 11/28/23 13:54:00 EDT, Dosing Weight cetirizine 10 mg oral tablet: Dose : 10 mg = 1 tab(s), Oral, Daily, # 90 tab(s), 3 Refill(s), Pharmacy: [facility], 177.8, cm, 11/28/23 13:54:00 EDT, Height, kg, 11/28/23 13:54:00 EDT,Dosing Weight nystatin 100,000 units/g topical cream: Apply 1 frida, Topical, BID, X 10 day(s), # 30 gram(s), 1 Refill(s), Pharmacy: [facility]/pharmacy #[id number], Cream, 177, cm, 01/12/24 9:42:00 EDT, Height, 148.6, kg, 01/12/24 9:42:00 EDT, Dosing Weight omeprazole 40 mg oral delayed release capsule: Dose : 40 mg = 1 cap(s), Oral, BID, before a meal., # 180 cap(s), 3 Refill(s), Pharmacy: [facility], 177.8, cm, 11/28/23 13:54:00 EDT, Height, kg, 11/28/23 13:54:00 EDT, Dosing Weight rosuvastatin 20 mg oral tablet: Dose : 20 mg = 1 tab(s), Oral, Daily, # 100 tab(s), 3 Refill(s), Pharmacy: [facility], 177.8, cm, 11/28/23 13:54:00 EDT, Height, kg, 11/28/23 13:54:00 EDT, Dosing Weight sacubitril-valsartan 49 mg-51 mg oral tablet: Dose = 1 tab(s), Oral, BID, # 180 tab(s), 3 Refill(s), Pharmacy: [facility], 177.8, cm, 11/28/23 13:54:00 EDT, Height, kg, 11/28/23 13:54:00 EDT, Dosing Weight spironolactone 25 mg oral tablet: Dose : 25 mg = 1 tab(s), Oral, qDay, # 90 tab(s), 3 Refill(s), Pharmacy: [facility], 177.8, cm, 11/28/23 13:54:00 EDT, Height, kg, 11/28/23 13:54:00 EDT, Dosing Weight tiZANidine 2 mg oral tablet: Dose : 2 mg = 1 tab(s), Oral, q8h, PRN as needed for muscle spasm, # 90 tab(s), 2 Refill(s), Pharmacy: [facility], 177.8, cm, 11/28/23 13:54:00 EDT, Height, kg, 11/28/23 13:54:00 EDT, Dosing Weight traZODone 100 mg oral tablet: Dose : 100 mg = 1 tab(s), Oral, qHS, # 90 tab(s), 3 Refill(s), Pharmacy: [facility], 177.8, cm, 11/28/23 13:54:00 EDT, Height, [...] list: Medical Asthma exacerbation / SNOMED CT 5109459732 / Confirmed Anxiety / SNOMED CT 31879437 / Confirmed Atopic dermatitis / SNOMED CT 49638913 / Confirmed BMI 45.0-49.9, adult / SNOMED CT 0858906286 / Confirmed Cardiomyopathy / SNOMED CT 216137690 / Confirmed Diabetes mellitus / SNOMED CT 255549829 / Confirmed Generalized anxiety disorder / SNOMED CT 56672842 / Confirmed Hyperlipidemia / SNOMED CT 23685239 / Confirmed Hypertension / SNOMED CT 6408031071 / Confirmed Insomnia / SNOMED CT 754317054 / Confirmed Moderate asthma / SNOMED CT 5553135843 / Confirmed Morbid obesity / SNOMED CT 801645641 / Confirmed Chewing tobacco nicotine dependence / SNOMED CT 97898236 / Confirmed Obstructive sleep apnea / SNOMED CT 654491211 / Confirmed Right knee pain / SNOMED CT 3336301669 / Confirmed Paroxysmal atrial fibrillation / SNOMED CT 737216349 / Confirmed Screening for ischemic heart disease / SNOMED CT 163390353 / Confirmed Screening for colon cancer / SNOMED CT 313221619 / Confirmed Prediabetes / SNOMED CT 1117848497 / Confirmed Right flank pain / SNOMED CT 267623381 / Confirmed Type 2 diabetes mellitus with hemoglobin A1c goal of less than 7.0% / SNOMED CT 827307782 / Confirmed Wheezing / SNOMED CT 79603069 / Confirmed, Active Problems (26) Anxiety Asthma [...] Mother Grandparent Stroke Father Procedure history: Cardioversion ([id number]) on 12/23/2022 at 52 Years. Echocardiogram ([id number]) on 11/11/2022 at 52 Years. Comments: 03/20/2023 [...] atrial pressure is 15 mm Hg Elbow ([id number]). Comments: 07/11/2022 8:26 SHAHEEN Nunez - right [...] On and Limits Checked Nail Bed Color [place] Capillary Refill < 2 seconds Heart Sounds [...] Elimination Voiding, no difficulties All Extremity Description [place] Skin Temperature Warm Temperature All Extremities Warm Skin Description [place], Dry Skin Integrity Intact Skin Turgor Non-Elastic Mucous Membrane Color [place] Mucous Membrane Description Moist Neurological Language Able to speak clearly Neurological Symptoms Patient denies Gait Unable to assess Extremity Movement Equal Swallowing Difficulty None Characteristics of Communication Appropriate Characteristics of Speech Clear Facial Symmetry Symmetric Level of Consciousness Alert Aspiration Risk None Eye Opening Response Vancleave Spontaneously Best Motor Response Luis Felipe Obeys simple commands Best Verbal Response Vancleave Oriented Luis Felipe Coma Score 15 CLARA [...] On and Limits Checked Nail Bed Color [place] Capillary Refill < 2 seconds Heart Sounds ICU S1S2 Heart Rhythm Irregular Cardiac Rhythm Sinus rhythm Monitoring Lead II, V5/MCL5 MI Interval 0.16 second(s) QRS Duration 0.08 second(s) [...] Elimination Voiding, no difficulties All Extremity Description [place] Skin Temperature Warm Temperature All Extremities Warm Skin Description [place], Dry Skin Integrity Intact Skin Turgor Non-Elastic Mucous Membrane Color [place] Mucous Membrane Description Moist Neurological Language Able to speak clearly Neurological Symptoms Patient denies Gait Unable to assess Extremity Movement Equal Swallowing Difficulty None Characteristics of Communication Appropriate Characteristics of Speech Clear Facial Symmetry Symmetric Level of Consciousness Alert Aspiration Risk None Eye Opening Response Luis Felipe Spontaneously Best Motor Response Vancleave Obeys simple commands Best Verbal Response Vancleave Oriented Vancleave Coma Score 15 CLARA Yes Strength All [...] On and Limits Checked Nail Bed Color [place] Capillary Refill < 2 seconds Heart Sounds [...] Movement Makes facial grimaces All Extremity Description [place] Skin Temperature Warm Temperature All Extremities Warm Skin Description [place], Dry Skin Integrity Intact Skin Turgor Non-Elastic Mucous Membrane Color [place] Mucous Membrane Description Moist Sensory Perception [place] [...] Alert Aspiration Risk None Eye Opening Response Vancleave Spontaneously Best Motor Response Vancleave Obeys simple commands Best Verbal Response Vancleave Oriented Luis Felipe Coma Score 15 CLARA [...] On and Limits Checked Nail Bed Color [place] Capillary Refill < 2 seconds Heart Sounds [...] intact Skin Turgor Non-Elastic Mucous Membrane Color [place] Mucous Membrane Description Moist Neurological Language Able to speak clearly Neurological Symptoms Patient denies Extremity Movement Equal Swallowing Difficulty None Characteristics of Communication Appropriate Characteristics of Speech Clear Facial Symmetry Symmetric Level of Consciousness Alert Aspiration Risk None Eye Opening Response Vancleave Spontaneously Best Motor Response Luis Felipe Obeys simple commands Best Verbal Response Vancleave Oriented Luis Felipe Coma Score 15 CLARA [...] of Bed Elevated 30 01/31/2024 15:38 EDT [facility] Current Living Situation I have a steady place to live [facility] Current Issues Living Environment None [facility] Worried Food Running Out P12M Never true [facility] Food Gone, No Money To Buy P12M Never true [facility] No Transport Med/Appt/Work P12M No [facility] Utilities Threaten Shut Off P12M No [facility] Anyone Physically Hurt You Never (1) [facility] Anyone Insult Or Talk Down To You Never (1) [facility] Anyone Threaten You With Harm Never (1) [facility] Anyone Scream Or Curse At You Never (1) [facility] Safety Total Score 4 Living Situation Lives with family Discharge To, Anticipated Home independently Anticipated Discharge Date 02/02/2024 Transition Planning Note Transition Planning Initial Assessment 01/31/2024 15:36 EDT Primary Care Phone Message Transition of Care sent from [facility] 01/31/2024 14:59 EDT heparin 9,000 unit(s) unit(s) Dextrose 5% Premix Diluent 90 mL mL 01/31/2024 14:43 EDT [place] Body Weight 72.7 kg Home Diet Regular Weight Chg, Unintentional Nutrition Hx Weight stable per milaca history Appetite Good Nutrition Plan of Care Dietitian follow up/monitor, Encourage PO feedings, Participate in team conference Nutrition Follow-Up Needed Yes Days until Director Of Web Marketing Follow Up Seven days Adult Nutrition Initial Assessment/Plan Adult Nutrition Assessment/Plan 01/31/2024 14:22 EDT Transition of Care Note Transition of Care sent from [facility] 01/31/2024 14:00 EDT Hand Right 01/30/2024 20 [...] On and Limits Checked Nail Bed Color [place] Capillary Refill < 2 seconds Heart Rhythm [...] Description Normal for ethnicity Mucous Membrane Color [place] Mucous Membrane Description Moist Hand Right 01/30/2024 [...] On and Limits Checked Nail Bed Color [place] Capillary Refill < 2 seconds Heart Rhythm [...] intact Skin Turgor Non-Elastic Mucous Membrane Color [place] Mucous Membrane Description Moist Continuous IV Infusions [...] Alert Aspiration Risk None Eye Opening Response Vancleave Spontaneously Best Motor Response Luis Felipe Obeys simple commands Best Verbal Response Vancleave Oriented Luis Felipe Coma Score 15 CLARA [...] On and Limits Checked Nail Bed Color [place] Capillary Refill < 2 seconds Heart Rhythm [...] Description Normal for ethnicity Mucous Membrane Color [place] Mucous Membrane Description Moist Continuous IV Infusions [...] On and Limits Checked Nail Bed Color [place] Capillary Refill < 2 seconds Heart Rhythm [...] intact Skin Turgor Non-Elastic Mucous Membrane Color [place] Mucous Membrane Description Moist Continuous IV Infusions [...] Response Luis Felipe Spontaneously Best Motor Response Vancleave Obeys simple commands Best Verbal Response Vancleave Oriented Vancleave Coma Score 15 CLARA Yes Left Pupil [...] On and Limits Checked Nail Bed Color [place] Capillary Refill < 2 seconds Heart Rhythm [...] intact Skin Turgor Non-Elastic Mucous Membrane Color [place] Mucous Membrane Description Moist Continuous IV Infusions [...] On and Limits Checked Nail Bed Color [place] Capillary Refill < 2 seconds Heart Rhythm [...] intact Skin Turgor Non-Elastic Mucous Membrane Color [place] Mucous Membrane Description Moist Hand Right 01/30/2024 [...] Response Luis Felipe Spontaneously Best Motor Response Vancleave Obeys simple commands Best Verbal Response Vancleave Oriented Luis Felipe Coma Score 15 CLARA [...] #1 We May Share PHI MARILYN OSPINA [phone] Designated Person #1 Relationship Sibling Designated Person #2 We May Share PHI Designated Person #2 We May Share PHI Designated Person #2 Relationship Significant other Privacy Restrictions Requested None Height 175 cm Height in inches 68.9 inch(es) Admission Weight 149.1 kg Weight Lbs 328 lb [place] Body Weight 70.46 kg BSA Admission 2.55 [...] evident Teaching Method Explanation Preferred Spoken Language [place]ian Preferred Written Language [place]ian Teaching Evaluation No further teaching needed Safety [...] On and Limits Checked Nail Bed Color [place] Capillary Refill < 2 seconds Heart Sounds [...] intact Skin Turgor Non-Elastic Mucous Membrane Color [place] Mucous Membrane Description Moist Sensory Perception [place] Slightly limited Moisture [place] Occasionally moist Activity [place] Bedfast Mobility [place] Slightly limited Nutrition [place] Probably inadequate Friction and Shear [place] No [...] Alert Aspiration Risk None Eye Opening Response Vancleave Spontaneously Best Motor Response Vancleave Obeys simple commands Best Verbal Response Luis Felipe Oriented Vancleave Coma Score 15 CLARA Yes Left Pupil [...] explained to patient, Risks and benefits explained [facility] manufacturers service representative Transferring Physician MD SAMY JONES MD [...] Transfer Ground ambulance Required Personnel for Transfer Back Up Machine Operator Ambulance Service [facility] Nursing [facility] MICU Discharged to Another [...] 250 mL mL . Assessment and Plan [place] [employer]esthesi[employer] (ASA) physical status classification: [...] CIRILO MCDONOUGH DO on 02/01/2024 06:26 AM [facility] Evaluation + Plan note No data available for this section [facility] Evaluation + Plan note Future Appointments Appointment Date:11/03/2022 09:15:00 AM Scheduled Provider:ZHOU ESPINOSA Location:[facility] Appointment Type:CV HONING MACHINE OPERATOR Appointment Date:11/08/2022 02:00:00 PM Scheduled Provider:ISADORA CORREA Location:[facility] Appointment Type:PC HONING MACHINE OPERATOR Unassigned ED Follow Up [facility] Evaluation + Plan note Future Appointments Appointment Date:11/04/2022 08:45:00 AM Scheduled Provider: Location:[facility] [place] Appointment Type:CV HONING MACHINE OPERATOR Appointment Date:11/08/2022 02:00:00 PM Scheduled Provider:ISADORA CORREA Location:[facility] Appointment Type:PC HONING MACHINE OPERATOR Unassigned ED Follow Up [facility] Evaluation + Plan note Future Appointments Appointment Date:12/13/2022 03:00:00 PM Scheduled Provider:ISADORA CORREA Location:[facility] Appointment Type:PC OV Follow Up [facility] Evaluation + Plan note Future Appointments Appointment Date:02/07/2023 02:30:00 PM Scheduled Provider:ISADORA CORREA [facility] Appointment Type:PC OV [facility] Evaluation + Plan note Future Appointments Appointment Date:06/20/2023 02:30:00 PM Scheduled Provider:ISADORA CORREA Location:[facility] Appointment Type:PC OV Future Scheduled Tests Laboratory* Basic Metabolic Panel 04/01/23 * A1C Hemoglobin 06/09/23 * Lipid Profile 06/09/23 * Complete Metabolic Panel 06/09/23 [facility] Evgaviotaation + Plan note Future Appointments Appointment Date:08/22/2023 12:00:00 PM Scheduled Provider: Location:[facility] Appointment Type:PF PFT w/Bronchodiltor Appointment Date:11/07/2023 02:00:00 PM Scheduled Provider:ISADORA CORREA Location:[facility] Appointment Type:PC OV Future Scheduled Tests Laboratory* Basic Metabolic Panel 04/01/23 [facility] Evaluation + Plan note Future Appointments Appointment Date:11/07/2023 02:00:00 PM Scheduled Provider:ISADORA CORREA Location:[facility] Appointment Type:PC OV Future Scheduled Tests Laboratory* Basic Metabolic Panel 04/01/23 [facility] Evaluation + Plan note Future Appointments Appointment Date:06/20/2023 10:00:00 AM Scheduled Provider:ISADORA CORREA Location:[facility] Appointment Type:PC OV Hospital Follow-Up Appointment Date:06/20/2023 02:30:00 PM Scheduled Provider:ISADORA CORREA Location:[facility] Appointment Type:PC OV Appointment Date:07/17/2023 03:15:00 PM Scheduled Provider:ZHOU ESPINOSA Location:[facility] Appointment Type:CV OV Future Scheduled Tests Laboratory* Basic Metabolic Panel 04/01/23 * A1C Hemoglobin 06/09/23 * Lipid Profile 06/09/23 * Complete Metabolic Panel 06/09/23 [facility] Evaluation + Plan note Future Appointments Appointment Date:02/13/2024 03:30:00 PM Scheduled Provider:ISADORA CORREA Location:[facility] Appointment Type:PC Wellness Annual w/Labs Future Scheduled Tests Laboratory* Basic Metabolic Panel 04/01/23 * Prostate Specific Antigen 02/07/24 * A1C Hemoglobin 02/07/24 * Lipid Profile 02/07/24 * Complete Metabolic Panel 02/07/24 [facility] Evaluation + Plan note Future Appointments Appointment Date:03/26/2024 08:00:00 PM Scheduled Provider: Location:[facility] Appointment Type: Sameer Study Appointment Date:05/14/2024 03:00:00 PM Scheduled Provider:ISADROA CORREA Location:[facility] Appointment Type:PC OV Lab Check Future Scheduled Tests Laboratory* Basic Metabolic Panel 02/07/24 * Basic Metabolic Panel 02/19/24 * Basic Metabolic Panel 04/01/23 * Magnesium Level 02/07/24 * A1C Hemoglobin 05/14/24 * Lipid Profile 05/14/24 * Complete Metabolic Panel 05/14/24 [facility] Evaluation + Plan note Future Appointments Appointment Date:04/01/2024 01:00:00 PM Scheduled Provider:DAMIAN SHRESTHA MD Location:[facility] Appointment Type:GS OV Appointment Date:05/14/2024 03:00:00 PM Scheduled Provider:ISADORA CORREA Location:[facility] Appointment Type:PC OV Lab Check Future Scheduled Tests Laboratory* Basic Metabolic Panel 02/07/24 * Basic Metabolic Panel 02/19/24 * Basic Metabolic Panel 04/01/23 * Magnesium Level 02/07/24 * A1C Hemoglobin 05/14/24 * Lipid Profile 05/14/24 * Complete Metabolic Panel 05/14/24 [facility] Evaluation + Plan note Future Appointments Appointment Date:02/13/2024 03:30:00 PM Scheduled Provider:ISADORA CORREA Location:[facility] Appointment Type: Wellness Annual w/Labs Future Scheduled Tests Laboratory* Basic Metabolic Panel 02/07/24 * Basic Metabolic Panel 02/19/24 * Basic Metabolic Panel 04/01/23 * Magnesium Level 02/07/24 [facility] Evaluation + Plan note Future Appointments Appointment Date:08/12/2024 03:00:00 PM Scheduled Provider:ISADORA CORREA Location:[facility] Appointment Type: Wellness Annual Future Scheduled Tests Laboratory* Basic Metabolic Panel 02/07/24 * Basic Metabolic Panel 02/19/24 * Magnesium Level 02/07/24 [facility] Evaluation + Plan note Future Appointments Appointment Date:10/23/2024 04:00:00 PM Scheduled Provider:ISADORA CORREA Location:[facility] Appointment Type:PC OV Appointment Date:11/08/2024 02:30:00 PM Scheduled Provider:EDY WEBER Location:[facility] Appointment Type: OV Hospital Follow Up Future Scheduled Tests Laboratory* Basic Metabolic Panel 02/07/24 * Basic Metabolic Panel 12/10/24 * Basic Metabolic Panel 02/19/24 * Magnesium Level 02/07/24 * Complete Blood Count 08/27/24 * Complete Metabolic Panel 08/27/24 * N-Terminal proBNP 08/27/24 [facility] Evaluation noteNo assessment information available [facility] Work Phone: Hospital Discharge instructions Additional Instructions Call Dr. Etienne's office on Monday to be seen later this coming week.[facility] Work Phone: Hospital Discharge instructions No data available for this section [facility] Hospital Discharge instructions Additional Instructions Chest x-ray negative. COVID and flu negative. Vapor rubs, humidifier. May use loratadine D that you have at home daily. Cough suppressants as needed. Follow-up with your doctor. Return if any worsening symptoms.[facility] Work Phone: Progress note No data available for this section [facility] Summary note* MACIEJ Rasmussen: PERFORM Event Display: Patient Summary Documents Authored Date: [facility] Summary Purpose Family History No Family History [...] October 23, 2022 6 :09am Power of Insurance Coordinator No October 23, 2022 6:09am Advance Directive Response Recorded Date/ Time Living Will No February 12, 2023 7:08am Power of Insurance Coordinator No January 7:08am Chief Complaint and Reason [...] section and content) DATE CREATED AUTHOR 02/15/2021 [facility] DATE CREATED AUTHOR AUTHOR'S ORGANIZ ATION 08/25/2021 [facility] DATE CREATED AUTHOR AUTHOR'S ORGANIZ ATION 2021 [employer] DATE CREATED AUTHOR AUTHOR'S ORGANIZ ATION 06/07/2022 [facility] DATE CREATED AUTHOR AUTHOR'S ORGANIZ ATION 08/17/2022 [facility] DATE CREATED AUTHOR AUTHOR'S ORGANIZ ATION 10/13/2023 Formerly named [facility] DATE CREATED AUTHOR AUTHOR'S ORGANIZ ATION 02/02/2024 [facility] ([place]) DATE CREATED AUTHOR AUTHOR'S ORGANIZ ATION 10/07/2024 [facility] DATE CREATED AUTHOR AUTHOR'S ORGANIZ ATION 10/23/2024 [facility] DATE CREATED AUTHOR AUTHOR'S ORGANIZ ATION 10/26/2024 [facility] DATE CREATED AUTHOR AUTHOR'S ORGANIZ ATION 10/28/2024 [facility] Care Team (unrecognized sect ion and content) Care Team Personnel Name: PHYSICIAN, NONE Position: Physician Member Role: Primary Care Physician Name: MALORIE PEGUERO MD Position: ED Physician Member Role: ED Physician Address: Address: [facility] [address] [place] [address]- Name: SHAHEEN Sinha Position: AO RN Member Role: ED RN Care Team Related Persons Name: MARILYN OSPINA Care Team Personnel Name: PHYSICIAN, NONE Position: Physician Member Role: Primary Care Physician Name: JEREMIE MCCORMACK MD Position: ED Physician Member Role: ED Physician Address: Address: [facility] [address] [place] [address]- [place] Name: Halley Staples RN Position: AO [...] Bright MD Family Provider Active Isadora Correa HONING MACHINE OPERATOR, HONING MACHINE OPERATOR-C Primary Care Provider Active Team Status: Inactive Member Role Status Dates Dr. Jameel Brown , Attending Provider, Emergency Provider Active ROMAIN ADAMES Primary Care Provider Active Team Status: Inactive Member Role Status Dates Dr. Nguyễn Al , Emergency Provider Active Isadora Correa HONING MACHINE OPERATOR, HONING MACHINE OPERATOR-C Primary Care Provider Active Goals (unrecognized [...] BE BASED ON THE PRIMARY CLINICAL RECORDS. [employer] provides no warranty or guarantee of the accuracy or completeness of information in this document.
[2024-10-30 07:23] LABS: Hemoglobin A1c 5.8 % (<=5.6)
[2024-10-30 07:48] LABS: Cholesterol 83 mg/dL (<=200); High Density Lipoprotein 23 mg/dL; Low Density Lipoprotein Calc. 34 mg/dL; Triglycerides 129 mg/dL; Very Low Density Lipoprotein 26 mg/dL (5-40); cholesterol:hdl ratio screen 3.64
== END ==
LOC: OLS.SW 05:55
PROVIDERS: PCP Nurse Practitioner Family; Visit Provider Internal Medicine
DX: E11.9 Type 2 diabetes mellitus without complications (principal); J44.9 Chronic obstructive pulmonary disease, unspecified; E78.5 Hyperlipidemia, unspecified
CPT/HCPCS: 36415; 80061; 83036

== ENCOUNTER → 2024-11-04 | Outpatient (REF) | payer MEDICAID, SELFPAY ==
--- OUTSIDE RECORDS SUMMARY | 2024-11-04 04:28 | XMS RPT_ITS | CCD ---
Author Organization [facility] Care Team Providers Care Waterproofer Helper Name Role Phone Zacarias Cohn Referring Unavailable [...] Attending Unavailable ISADORA CORREA [facility] Care [facility] Attending Unavailable [facility] Unavailable BETZAIDA PETTIT, DEMI Attending Unavailable [facility] Care Unavailable BETZAIDA PETTIT, DEMI [facility] Un[facility] SAMY JONES Attending Un[facility] Unavailable CINDY HERNANDEZ MD Consulting Unavailable DR OLLIE BROOKE MD Attending Unavailabl e [facility] Primary Care Unavailable SLOANE AGARWAL DO D Attending Unavailable LORSON, PERKASIE Primary Care Unavailable SLOANE AGARWAL DO Attending Unavailable [facility] Admitting Unavailable [facility]ending Un[facility] Care Un[facility] Primary Care Unavailable [facility] TECHNICIAN-CATCHER HELPER, JONNY Attending U julio cesar YANES HOSPITAL TECHNICIAN-CATCHER HELPER, HELEN Attending Unava ilable [facility]-CATCHER HELPER, [facility] Care Unavail able [facility]IAN-CATCHER HELPER, PERKASIE Attending Unavail able [facility]-CATCHER HELPER, [facility] Care Unavail able [facility] TECHNICIAN-CATCHER HELPER, PERKASIE Attending Unavail able [facility]-CATCHER HELPER, [facility] Care Unavail able [facility]CHN[facility]IAN-CATCHER HELPER, PERKASIE Attending Unavail able [facility]-CATCHER HELPER, [facility] Care Unavail able [facility]NICIAN-CATCHER HELPER, [facility] Care Unavail able [facility] TECHNICIAN-CATCHER HELPER, PERKASIE Attending Unavail able [facility]IAN-CATCHER HELPER, PERKASIE Attending Unavail able [facility]NICIAN-CATCHER HELPER, [facility] Care Unavail able [facility] TECHNICIAN-CATCHER HELPER, PERKASIE Attending Unavail able [facility]IAN-CATCHER HELPER, [facility] Care Unavail able CINDY HERNANDEZ MD Consulting Unavailable DR SAMY JONES MD, V Attending Unavai lable [facility]NICIAN-CATCHER HELPER, [facility] Care Unavail able DELORES MURO DO Attending Unavailable [facility]IAN-CATCHER HELPER, [facility] Care Unavail able DR WILNER JOE MD Attending Unavailabl e [facility]CHNICIAN-CATCHER HELPER, [facility] Unavail able CIRILO PATEL DO Attending Unavailable [facility]CHNICIAN-CATCHER HELPER, [facility] Care Unavail able JAKE MAXWELL Attending Unavailable JAKE MAXWELL Primary Care Unavailable JAKE MAXWELL Admitting Unavailable Dolly Walter Attending Unavailable [facility] Unavailable Dolly Walter Attending Unavailable [facility] Unavailable [facility] Unavailable Dolly Walter Attending Unavailable STEFANIE PETTIT, MOY Attending U julio cesar PECK MD, JANAE Consulting Unavailable NADIR PETTIT, DR JONES Admitting Unavailab le [facility], [facility] Unavail able MESHA PETTIT, ARIEL Consulting Unavailable NATALY PETTIT, BRENNON Attending Unavailable CINDY HERNANDEZ MD Admitting Unavailable HELENA GAINES MD Consulting Unavailable [facility]NICIAN-CATCHER HELPER, [facility] Unavail able ALIZE PETTIT, DR UPTON Consulting Unavailable CINDY HERNANDEZ MD Consulting Unavailable NANI QUINTANA DO Attending Unavailable LUPE STONE, DR ORTIZ Consulting Unavailable [facility], [facility] Unavail able NANI QUINTANA DO Admitting Unavailable CHANTAL WHEATLEY DO Consulting Unavailable MELISSA MARIN MD Consulting Unavailable [facility] Consulting Unavailable Allergies Allergy Classification Reported Allergen(s) Allergy Type Date of Onset Reaction(s) Facility (4 sources) HMG-CoA reductase inhibitor; 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: [statins] Propensity to adverse reactions to drug myalgia [facility] Medications Current Medications Medication Drug Class(es) Dates [...] every six hours as needed for pain [place] 325- 5 mg oral tablet Dose = 1 tab(s), Oral, q6h, PRN As needed for severe pain, X 3 day(s), # 12 tab(s), 0 Refill(s), Contusion of rib on right side, 144.4 Start Date: 05/05/23 Stop Date: 05/08/23 Status: Ordered Start: 07-15-2022 End: 07-17-2022 take 1 tablet by mouth every six hours as needed for pain [place] 325- 5 mg oral tablet Dose = [...] day(s), # 28 tab(s), 0 Refill(s), Pharmacy: [facility]/pharmacy #[id number], Post-op pain, 177.8, cm, 10/17/24 1:29:00 [...] q6h, # 120 EA, 0 Refill(s), Pharmacy: [facility]/pharmacy #[id number], 176, cm, 08/27/24 14:57:00 EDT, Height, kg, 08/27/24 14:57:00 EDT, Dosing Weight Start Date: 08/27/24 Status: Ordered Quantity: 120.0 Unit: EA Repeat number: 1 allopurinol 100 mg oral tablet (20 sources) Xanthine Oxidase Inhibitor Start: 12-12-2023 allopurinol 100 mg oral tablet Dose : 100 mg = 1 tab(s), Oral, qDay, # 90 tab(s), 3 Refill(s), Pharmacy: [facility], 177.8, cm, 11/28/23 13:54:00 EDT, Height, kg, 11/28/23 13:54:00 EDT, Dosing Weight Start Date: 12/12/23 Status: Ordered Quantity: 90.0 Unit: tab(s) Repeat number: 4 Start: 08-08-2023 allopurinol 10 0 mg oral tablet Dose : 100 mg = 1 tab(s), Oral, qDay, # 90 tab(s), 3 Refill(s), [facility]: [facility][id number], 178.5, cm, 08/08/23 13:32:00 EDT, Height, kg, 08/08/23 13:32:00 EDT, Dosing Weight Start Date: 08/08/23 Status: Ordered Start: 10-23-2022 End: 02-06-2023 allopurinol 100 mg oral tabl et Dose : 100 mg = 1 tab(s), Oral, qDay, # 90 tab(s), 3 Refill(s), [facility]acy: [facility] #[id number], 175.3, cm, 12/23/22 6:37:00 EDT, Height, kg, [...] Daily, # 100 tab(s), 3 Refill(s), [facility]acy: [facility] #[id number], 178.5, cm, 08/08/23 13:32:00 EDT, Height, kg, 08/08/23 13:32:00 EDT, Dosing Weight Start Date: 08/09/23 Status: Ordered bempedoic acid 180 mg oral tablet (4 sources) Start: 05-14-2024 Nexletol 180 m g oral tablet Dose : 180 mg = 1 tab(s), Oral, qDay, # 30 tab(s), 5 Refill(s), Pharmacy: [facility], 175, cm, 05/14/24 13:59:00 EST, [...] device, # 1 EA, 0 Refill(s), Pharmacy: [facility], 177.8, cm, 11/28/23 13:54:00 EDT, Height, 151.4, kg, 11/28/23 13:54:00 EDT, Dosing Weight Start Date: 12/12/23 Status: Ordered Quantity: 1.0 Unit: EA Repeat number: 1 Start: 12-12-2023 Blood Glucose Test Machine See Instructions, Use glucometer daily as directed for blood sugar checks. Dispense insurance preferred device, # 1 EA, 0 Refill(s), Pharmacy: [facility], 177.8, cm, 11/28/23 13:54:00 EDT, Height, 151.4, kg, 11/28/23 13:54:00 EDT, Dosing Weight Start Date: 12/12/23 Status: Ordered cetirizine hydrochloride 10 mg oral tablet (12 sources) Histamine-1 Receptor Antagonist Start: 08-08-2023 End: 12-06-2024 cetirizine 10 mg oral tablet Dose : 10 mg = 1 tab(s), Oral, Daily, # 90 tab(s), 3 Refill(s), Pharmacy: [facility], 177.8, cm, 11/28/23 13:54:00 EDT, Height, [...] BID, # 180 cap(s), 4 Refill(s), Pharmacy: [facility]/pharmacy #[id number], 177.8, cm, 10/02/24 6:28:00 EDT, Height, kg, 10/02/24 6:28:00 EDT, Dosing Weight Start Date: 10/04/24 Status: Ordered Quantity: 180.0 Unit: cap(s) Repeat number: 5 Start: 09-24-2024 Tikosyn 250 mc g oral capsule Dose : 250 mcg = 1 cap(s), Oral, BID, # 180 cap(s), 1 Refill(s), Pharmacy: [facility]/pharmacy #[id number], 175, cm, 09/05/24 16:01:00 EDT, Height, kg, 09/05/24 16:01:00 EDT, Dosing Weight Start Date: 09/24/24 Status: Ordered Quantity: 180.0 Unit: cap(s) Repeat number: 2 Start: 12-12-2023 Tikosyn 250 mc g oral capsule Dose : 250 mcg = 1 cap(s), Oral, BID, # 180 cap(s), 3 Refill(s), Pharmacy: [facility]/pharmacy #[id number], 177.8, cm, 11/28/23 13:54:00 EDT, Height, kg, 11/28/23 13:54:00 EDT, Dosing Weight Start Date: 12/12/23 Status: Ordered Quantity: 180.0 Unit: cap(s) Repeat number: 4 Start: 06-09-2023 Tikosyn 250 mc g oral capsule Dose : 250 mcg = 1 cap(s), Oral, BID, # 60 cap(s), 2 Refill(s), [facility]acy: [facility] #[id number], 176, cm, 06/07/23 13:36:00 EST, Height, kg, 06/07/23 13:36:00 EST, Dosing Weight Start Date: 06/09/23 Status: Ordered 0.5 ml dulaglutide 3 mg/ml auto-injector (10 sources) GLP-1 Receptor Agonist Start: 04-15-2024 End: 10-02-2025 inject 1 dose by subcutaneous injection every week Trulicity Pen 1.5 mg/0.5 mL subcutaneous solution Dose : 1.5 mg =, Subcutaneous, qWeek, # 12 EA, 3 Refill(s), Pharmacy: [facility]/pharmacy #[id number], 177.8, cm, 10/02/24 6:28:00 EDT, Height, [...] PCP, # 4 EA, 3 Refill(s), Pharmacy: [facility], 177.8, cm, 11/28/23 13:54:00 EDT, Height, kg, 11/28/23 13:54:00 EDT, Dosing Weight Start Date: 12/12/23 Stop Date: 04/02/24 Status: Ordered Start: 08-21-2023 inject 0.5 mL by sub cutaneous injection every week Trulicity Pen 0.75 mg/0.5 mL subcutaneous solution Dose : 0.75 mg = 0.5 mL, Subcutaneous, qWeek, # 2.5 mL, 5 Refill(s), 0.5 mL/Pen, Pharmacy: [facility] #[id number], 177.8, cm, 08/09/23 21:07:00 EDT, Height, kg, [...] qDay, # 30 cap(s), 3 Refill(s), Pharmacy: [facility], 177.8, cm, 11/28/23 13:54:00 EDT, Height, kg, 11/28/23 13:54:00 EDT, Dosing Weight Start Date: 12/12/23 Status: Ordered Start: 08-08-2023 End: 08-02-2024 FLUoxetine 10 mg oral capsul e Dose : 10 mg = 1 cap(s), Oral, qDay, # 30 cap(s), 0 Refill(s), Pharmacy: [facility], 175, cm, 05/14/24 13:59:00 EST, Height, kg, 05/14/24 13:57:00 EST, Dosing Weight Start Date: 05/14/24 Status: Ordered Quantity: 30.0 Unit: cap(s) Repeat number: 1 Start: 06-09-2023 FLUoxetine 10 mg oral capsule Dose : 10 mg = 1 cap(s), Oral, qDay, # 30 cap(s), 2 Refill(s), Pharmacy: [facility] #[id number], 176, cm, 06/07/23 13:36:00 EST, Height, kg, 06/07/23 13:36:00 EST, Dosing Weight Start Date: 06/09/23 Status: Ordered Start: 01-31-2023 FLUoxetine 20 mg oral tablet Dose : 20 mg = 1 tab(s), Oral, qDay, # 90 tab(s), 3 Refill(s), Pharmacy: [facility] #[id number], 175.3, cm, 12/23/22 6:37:00 EDT, Height, kg, 12/23/22 6:38:00 EDT, Dosing Weight Start Date: 01/31/23 Status: Ordered Start: 12-13-2022 FLUoxetine 20 mg oral tablet Dose : 20 mg = 1 tab(s), Oral, qDay, # 30 tab(s), 3 Refill(s), Pharmacy: [facility] #[id number], 175.3, cm, 12/13/22 14:43:00 EDT, Height Start Date: 12/13/22 Status: Ordered Start: 11-08-2022 FLUoxetine 10 mg oral tablet Dose : 10 mg = 1 tab(s), Oral, qDay, # 30 tab(s), 2 Refill(s), Pharmacy: [facility] #[id number], 177, cm, 11/08/22 13:50:00 EDT, Height Start Date: 11/08/22 Status: Ordered 120 actuat fluticasone propionate 0.11 mg/actuat metered dose inhaler (3 sources) Corticosteroid Start: 08-08-2023 End: 08-02-2024 take 2 puff(s) by inhalation twice daily Flovent HFA 110 mcg/inh inhalation aerosol 2 puff(s), Inhalation, BID, # 3 EA, 3 Refill(s), Pharmacy: [facility] #[id number], 178.5, cm, 08/08/23 13:32:00 EDT, Height, kg, [...] daily., # 30 tab(s), 0 Refill(s), Pharmacy: [facility], 175, cm, 02/13/24 15:03:00 EDT, Height, kg, 02/13/24 15:03:00 EDT, Dosing Weight Start Date: 03/07/24 Status: Ordered Quantity: 30.0 Unit: tab(s) Repeat number: 1 Start: 02-09-2024 furosemide 20 mg oral tablet Dose : 20 mg = 1 tab(s), Oral, Daily, Take 2 tablets daily for the first 3 days followed by 1 tablet daily., # 30 tab(s), 3 Refill(s), Pharmacy: [facility]/pharmacy #[id number], 175, cm, 02/09/24 15:58:00 EDT, Height, kg, 02/09/24 15:58:00 EDT, Dosing Weight Start Date: 02/09/24 Status: Ordered Start: 12-12-2023 take 1 tablet by brandon th in the morning, then take 0.5 tablet by mouth in the evening Lasix 40 mg oral tablet See Instructions, 1 tab in AM and 0.5 tab in PM, # 135 tab(s), 3 Refill(s), Pharmacy: [facility], 177.8, cm, 11/28/23 13:54:00 EDT, Height, kg, 11/28/23 13:54:00 EDT, Dosing Weight Start Date: 12/12/23 Status: Ordered Start: 08-08-2023 take 1 tablet by brandon th in the morning, then take 0.5 tablet by mouth in the evening Lasix 40 mg oral tablet See Instructions, 1 tab in AM and 0.5 tab in PM, # 135 tab(s), 3 Refill(s), Pharmacy: [facility] #[id number], 178.5, cm, 08/08/23 13:32:00 EDT, Height, kg, 08/08/23 13:32:00 EDT, Dosing Weight Start Date: 08/08/23 Status: Ordered Start: 11-14-2022 take 1 tablet by brandon th in the morning, then take 0.5 tablet by mouth in the evening Lasix 40 mg oral tablet See Instructions, 1 tab in AM and 0.5 tab in PM, # 135 tab(s), 0 Refill(s), Pharmacy: [facility] #[id number], 177, cm, 11/08/22 13:50:00 EDT, Height, kg, [...] 3 Refill(s), 12/25/24 12:39:00 PM EDT, Pharmacy: [facility], 182, cm, 06/12/24 13:53:00 EST, [...] Refill(s), 06/09/24 4:10:00 PM EST, Pharmacy: [facility], 177.8, cm, 11/28/23 [...] 3 Refill(s), 05/31/23 2:41:00 PM EST, Pharmacy: [facility] #[id number], 175.3, cm, 12/23/22 6:37:00 EDT, Height, kg, [...] qDay, # 30 tab(s), 6 Refill(s), Pharmacy: [facility] #[id number], 175.3, cm, 12/23/22 6:37:00 EDT, Height, kg, 12/23/22 6:38:00 EDT, Dosing Weight Start Date: 12/23/22 Status: Ordered metFORMIN hydrochloride 500 mg oral tablet (7 sources) Biguanide Start: 01-31-2023 MetFORMIN (Eqv-Fortamet) 500 mg oral tablet, EXTENDED RELEASE Dose : 500 mg = 1 tab(s), Oral, qDay, # 90 tab(s), 3 Refill(s), [facility]acy: [facility] #[id number], 175.3, cm, 12/23/22 6:37:00 EDT, Height, kg, [...] day(s), # 30 EA, 5 Refill(s), Pharmacy: [facility] #[id number], 177, cm, 11/08/22 13:50:00 EDT, Height Start Date: 11/08/22 Stop Date: 05/07/23 Status: Ordered nystatin 051123 unt/ml topical cream (1 source) Polyene Antifungal Start: 01-12-2024 End: 02-01-2024 nystatin 100,000 units/g topical cream Apply 1 frida, Topical, BID, X 10 day(s), # 30 gram(s), 1 Refill(s), [id number], Cream, 177, cm, 01/12/24 9:42:00 EDT, Height, 148.6, kg, 01/12/24 9:42:00 EDT, Dosing Weight Start Date: 01/12/24 Stop Date: 02/01/24 Status: Ordered omeprazole 40 mg delayed release oral capsule (20 sources) Proton Pump Inhibitor Start: 09-19-2024 omeprazole 40 mg oral delayed release capsule Dose : 40 mg = 1 cap(s), Oral, BID, before a meal., # 180 cap(s), 0 Refill(s), [id number], 175, cm, 09/05/24 16:01:00 EDT, Height, kg, 09/05/24 16:01:00 EDT, Dosing Weight Start Date: 09/19/24 Status: Ordered Quantity: 180.0 Unit: cap(s) Repeat number: 1 Start: 12-12-2023 omeprazole 40 mg oral delayed release capsule Dose : 40 mg = 1 cap(s), Oral, BID, before a meal., # 180 cap(s), 3 Refill(s), Pharmacy: [facility], 177.8, cm, 11/28/23 13:54:00 EDT, Height, kg, 11/28/23 13:54:00 EDT, Dosing Weight Start Date: 12/12/23 Status: Ordered Quantity: 180.0 Unit: cap(s) Repeat number: 4 Start: 08-08-2023 omeprazole 40 mg oral delayed release capsule Dose : 40 mg = 1 cap(s), Oral, BID, before a meal., # 180 cap(s), 3 Refill(s), [id number], 178.5, cm, 08/08/23 13:32:00 EDT, Height, kg, 08/08/23 13:32:00 EDT, Dosing Weight Start Date: 08/08/23 Status: Ordered Start: 05-26-2023 omeprazole 40 mg oral delayed release capsule Dose : 40 mg = 1 cap(s), Oral, BID, before a meal. sent in absence of PCP, # 60 cap(s), 0 Refill(s), Pharmacy: [facility] #[id number], 152.8, cm, 05/12/23 11:14:00 EST, Height, kg, 05/12/23 11:14:00 EST, Dosing Weight Start Date: 05/26/23 Status: Ordered Start: 03-15-2023 End: 05-14-2023 omeprazole 40 mg oral delaye d release capsule Dose : 40 mg = 1 cap(s), Oral, BID, before a meal, # 60 cap(s), 1 Refill(s), Pharmacy: [facility] #[id number], 175.9, cm, 02/15/23 13:56:00 EDT, Height, kg, [...] 0 Refill(s), 05/24/24 2:36:00 PM EST, Pharmacy: [facility]/pharmacy #[id number], 175, cm, 05/14/24 13:59:00 EST, Height, 143.9, kg, 05/14/24 13:57:00 EST, Dosing Weight Start Date: 05/14/24 Stop Date: 05/24/24 Status: Ordered Quantity: 30.0 Unit: tab(s) Repeat number: 1 polyethylene glycol 3350 wit h electrolytes oral powder for reconstitution (2 sources) Start: 02-15-2023 polyethylene g lycol 3350 with electrolytes oral powder for reconstitution See Instructions, As directed by provider at [facility]., # 1 EA, 0 Refill(s), Pharmacy: [facility] #[id number], Colon cancer screening, 175.9, cm, 02/15/23 13:56:00 EDT, Height, kg, 02/15/23 13:56:00 EDT, Dosing Weight Start Date: 02/15/23 Status: Ordered potassium chloride 20 meq or al tablet (11 sources) Start: 10-04-2024 Potassium Chlo ride (Eqv-K-Tab) 20 mEq oral tablet, extended release Dose : 20 mEq = 1 tab(s), Oral, qDay, Take with food, # 90 tab(s), 3 Refill(s), Pharmacy: [facility] #[id number], 177.8, cm, 10/02/24 6:28:00 EDT, Height, kg, 10/02/24 6:28:00 EDT, Dosing Weight Start Date: 10/04/24 Status: Ordered Quantity: 90.0 Unit: tab(s) Repeat number: 4 Start: 02-09-2024 Potassium Chlo ride (Eqv-K-Tab) 10 mEq oral tablet, extended release Dose : 10 mEq = 1 tab(s), Oral, qDay, # 30 tab(s), 3 Refill(s), Pharmacy: [facility]/pharmacy #[id number], 175, cm, 02/09/24 15:58:00 EDT, Height, [...] Daily, # 100 tab(s), 3 Refill(s), Pharmacy: [facility], 175, cm, 02/13/24 15:03:00 EDT, Height, [...] qHS, # 90 tab(s), 11 Refill(s), Pharmacy: [facility]/pharmacy #[id number], 177.8, cm, 10/02/24 6:28:00 EDT, Height, 140.3, kg, 10/02/24 6:28:00 EDT, Dosing Weight Start Date: 10/04/24 Status: Ordered Quantity: 90.0 Unit: tab(s) Repeat number: 12 Start: 12-12-2023 Xarelto 20 mg oral tablet Dose : 20 mg = 1 tab(s), Oral, qHS, # 90 tab(s), 3 Refill(s), Pharmacy: [facility], 177.8, cm, 11/28/23 13:54:00 EDT, Height, 151.4, kg, 11/28/23 13:54:00 EDT, Dosing Weight Start Date: 12/12/23 Status: Ordered Quantity: 90.0 Unit: tab(s) Repeat number: 4 Start: 08-08-2023 Xarelto 20 mg oral tablet Dose : 20 mg = 1 tab(s), Oral, qHS, # 90 tab(s), 3 Refill(s), Pharmacy: [facility] #[id number], 178.5, cm, 08/08/23 13:32:00 EDT, Height, 156.7, kg, 08/08/23 13:32:00 EDT, Dosing Weight Start Date: 08/08/23 Status: Ordered Start: 10-23-2022 End: 02-06-2023 Xarelto 20 mg oral tablet Do se : 20 mg = 1 tab(s), Oral, qHS, # 90 tab(s), 3 Refill(s), [facility]: [facility] #[id number], 175.3, cm, 12/23/22 6:37:00 EDT, Height, 144, kg, 12/23/22 6:38:00 EDT, Dosing Weight Start Date: 01/31/23 Status: Ordered rosuvastatin calcium 20 mg oral tablet (3 sources) HMG-CoA Reductase Inhibitor Start: 12-12-2023 rosuvastatin 20 mg oral tablet Dose : 20 mg = 1 tab(s), Oral, Daily, # 100 tab(s), 3 Refill(s), Pharmacy: [facility], 177.8, cm, 11/28/23 13:54:00 EDT, [...] BID, # 180 tab(s), 3 Refill(s), Pharmacy: [facility], 177.8, cm, 11/28/23 13:54:00 EDT, Height, kg, 11/28/23 13:54:00 EDT, Dosing Weight Start Date: 12/12/23 Stop Date: 12/06/24 Status: Ordered Start: 03-22-2023 take 1 tablet by [facility] twice daily sacubitril-valsartan 49 mg-51 mg oral tablet Dose = 1 tab(s), Oral, BID, # 60 tab(s), 3 Refill(s), Pharmacy: [facility] #[id number], 175.3, cm, 03/22/23 13:31:00 EDT, Height, kg, 03/22/23 13:31:00 EDT, Dosing Weight Start Date: 03/22/23 Status: Ordered spironolactone 25 mg oral tablet (19 sources) Aldosterone Antagonist Start: 08-08-2023 End: 12-06-2024 spironolactone 25 mg oral tablet Dose : 25 mg = 1 tab(s), Oral, qDay, # 90 tab(s), 3 Refill(s), Pharmacy: [facility], 177.8, cm, 11/28/23 13:54:00 EDT, Height, kg, 11/28/23 13:54:00 EDT, Dosing Weight Start Date: 12/12/23 Stop Date: 12/06/24 Status: Ordered Quantity: 90.0 Unit: tab(s) Repeat number: 4 Start: 02-07-2023 spironolactone 25 mg oral tablet Dose : 25 mg = 1 tab(s), Oral, qDay, # 60 tab(s), 5 Refill(s), Pharmacy: [facility] #[id number], 175.3, cm, 12/23/22 6:37:00 EDT, Height, kg, 12/23/22 6:38:00 EDT, Dosing Weight Start Date: 02/07/23 Status: Ordered Start: 11-24-2022 spironolactone 25 mg oral tablet Dose : 25 mg = 1 tab(s), Oral, qDay, # 60 tab(s), 0 Refill(s), [facility]acy: [facility] #[id number], 177, cm, 11/08/22 13:50:00 EDT, Height, kg, 11/08/22 13:50:00 EDT, Dosing Weight Start Date: 11/24/22 Status: Ordered Start: 11-04-2022 spironolactone 25 mg oral tablet Dose : 25 mg = 1 tab(s), Oral, BIDM, # 60 tab(s), 0 Refill(s), Pharmacy: [facility] #[id number], 175.3, cm, 11/04/22 8:52:00 EDT, Height Start Date: 11/04/22 Status: Ordered Symbicort 80 mcg-4.5 mcg/inh Inhaler (9 sources) Start: 07-29-2024 End: 07-24-2025 take 1 dose by inhalation twice daily Symbicort 80 mcg-4.5 mcg/inh Inhaler Dose = 2 puff(s), Inhalation, BID, # 30.6 gram(s), 3 Refill(s), Pharmacy: [facility], 182, cm, 06/12/24 13:53:00 EST, Height, kg, 06/12/24 13:53:00 EST, Dosing Weight Start Date: 07/29/24 Stop Date: 07/24/25 Status: Ordered Quantity: 30.6 Unit: g Repeat number: 4 Start: 04-08-2024 End: 08-06-2024 take 1 dose by inhalation twice daily Symbicort 80 mcg-4.5 mcg/inh Inhaler Dose = 2 puff(s), Inhalation, BID, # 10.2 gram(s), 3 Refill(s), Pharmacy: [facility], 175, cm, 04/01/24 13:03:00 EST, Height, kg, 04/01/24 13:03:00 EST, Dosing Weight Start Date: 04/08/24 Stop Date: 08/06/24 Status: Ordered Quantity: 10.2 Unit: g Repeat number: 4 Start: 12-12-2023 End: 04-10-2024 take 1 dose by inhalation twice daily Symbicort 80 mcg-4.5 mcg/inh Inhaler Dose = 2 puff(s), Inhalation, BID, # 10.2 gram(s), 3 Refill(s), Pharmacy: [facility], 177.8, cm, [...] qHS, # 90 tab(s), 3 Refill(s), Pharmacy: [facility]/pharmacy #[id number], 177.8, cm, 10/09/24 13:44:00 EDT, Height, kg, 10/09/24 13:44:00 EDT, Dosing Weight Start Date: 10/09/24 Status: Ordered Quantity: 90.0 Unit: tab(s) Repeat number: 4 Start: 09-19-2024 traZODone 100 mg oral tablet Dose : 100 mg = 1 tab(s), Oral, qHS, # 90 tab(s), 2 Refill(s), Pharmacy: [facility]/pharmacy #[id number], 175, cm, 09/05/24 16:01:00 EDT, Height, kg, 09/05/24 16:01:00 EDT, Dosing Weight Start Date: 09/19/24 Status: Ordered Quantity: 90.0 Unit: tab(s) Repeat number: 3 Start: 12-12-2023 traZODone 100 mg oral tablet Dose : 100 mg = 1 tab(s), Oral, qHS, # 90 tab(s), 3 Refill(s), Pharmacy: [facility], 177.8, cm, 11/28/23 13:54:00 EDT, Height, kg, 11/28/23 13:54:00 EDT, Dosing Weight Start Date: 12/12/23 Status: Ordered Quantity: 90.0 Unit: tab(s) Repeat number: 4 Start: 08-08-2023 traZODone 100 mg oral tablet Dose : 100 mg = 1 tab(s), Oral, qHS, # 90 tab(s), 3 Refill(s), Pharmacy: [facility] #[id number], 178.5, cm, 08/08/23 13:32:00 EDT, Height, kg, 08/08/23 13:32:00 EDT, Dosing Weight Start Date: 08/08/23 Status: Ordered Start: 12-13-2022 End: 04-12-2023 traZODone 100 mg oral tablet Dose : 100 mg = 1 tab(s), Oral, qHS, # 90 tab(s), 3 Refill(s), Pharmacy: [facility] #[id number], 175.3, cm, 12/23/22 6:37:00 EDT, Height, kg, 12/23/22 6:38:00 EDT, Dosing Weight Start Date: 01/31/23 Status: Ordered Start: 11-08-2022 End: 02-06-2023 traZODone 50 mg oral tablet Dose : 50 mg = 1 tab(s), Oral, qHS, # 30 tab(s), 2 Refill(s), Pharmacy: [facility] #[id number], 177, cm, 11/08/22 13:50:00 EDT, Height, kg, [...] day(s), # 30 gram(s), 0 Refill(s), Pharmacy: [facility] #[id number], Cream, 175.3, cm, 12/13/22 14:43:00 EDT, Height, [...] 4 EA, 3 Refill(s), generic OZEMPIC, Pharmacy: [facility] #[id number], 178.5, cm, 08/08/23 13:32:00 EDT, Height, kg, [...] chew, # 180 tab(s), 0 Refill(s), Pharmacy: [facility]/pharmacy #[id number], Shortness of breath, 175, cm, 09/05/24 [...] chew, # 60 tab(s), 3 Refill(s), [id number], Shortness of breath, 175.3, cm, 03/22/23 13:31:00 EDT, Height, kg, 03/22/23 13:31:00 EDT, Dosing Weight Start Date: 03/22/23 Stop Date: 03/29/23 Status: Ordered Start: 12-23-2022 Toprol-XL 50 m g oral tablet, extended release Dose : 50 mg = 1 tab(s), Oral, BID, # 60 tab(s), 6 Refill(s), [facility]acy: [facility] #[id number], 175.3, cm, 12/23/22 6:37:00 EDT, Height, kg, [...] spasm, # 21 tab(s), 3 Refill(s), Pharmacy: [facility], 182, cm, 06/12/24 13:53:00 EST, Height, kg, 06/12/24 13:53:00 EST, Dosing Weight Start Date: 08/26/24 Stop Date: 09/23/24 Status: Ordered Quantity: 21.0 Unit: tab(s) Repeat number: 4 Start: 03-04-2024 tiZANidine 2 m g oral tablet Dose : 2 mg = 1 tab(s), Oral, q8h, PRN as needed for muscle spasm, # 90 tab(s), 2 Refill(s), Pharmacy: [facility], 175, cm, 02/13/24 15:03:00 EDT, [...] sources) Long-term current use of anticoagulant; 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: [personal 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 Performed By: #### L 501.9985, L500.4100 #### [facility] [address] [place], [address] Lipid Profileon 10-30-2024 CHOL:HDL 3.64 Normal [facility] Comment on above: Performed By: #### L 501.9985, L500.4100 #### [facility] [address] [place], [address] Cholesterol [Mass/Vol] 83 mg/dL Normal <=200 [facility] Comment on above: Result Comment: Chol esterol level, Desirable <200 mg/dL Borderline high cholesterol 200-239 mg/dL High cholesterol >=240 mg/dL Recommendations of the NCEP Adult Treatment Panel for the following risk-cutoff thresholds for the [place] population. Performed By: #### L 501.9985, L500.4100 #### [facility] [address] [place], [address] Cholesterol in HDL [Mass/Vol] 23 mg/dL Low [facility] Comment on above: Result Comment: Fern onal Cholesterol Education Program (NCEP) guidelines: <40 mg/dL: Low HDL-cholesterol (major risk factor for CHD) >= 60 mg/dL: High HDL-cholesterol (negative risk factor for CHD) HDL-cholesterol is affected by a number of factors, e.g. smoking, exercise, hormones, sex and age. Performed By: #### L 501.9985, L500.4100 #### [facility] [address] [place], [address] Cholesterol in LDL [Mass/Vol] 34 mg/dL Normal [facility] Comment on above: Result Comment: Bord jenqww=910-696 mg/dL Higher Axti=265 mg/dL or greater Performed By: #### L 501.9985, L500.4100 #### [facility] [address] [place], [address] Cholesterol in VLDL [Mass/Vol] 26 mg/dL Normal 5-40 [facility] Comment on above: Performed By: #### L 501.9985, L500.4100 #### [facility] [address] [place], [address] Triglyceride [Mass/Vol] 129 mg/dL Normal [facility] Comment on above: Result Comment: The drugs N-Acetylcysteine and Metamizole may falsely depress this assay. Normal range: <150 mg/dL Borderline High: 150-199 mg/dL High: 200-499 mg/dL Very High: >500 mg/dL Performed By: #### L 501.9985, L500.4100 #### [facility] [address] [place], [address] Basic Metabolic Profile (BMP )on 10-28-2024 BUN/CRE 13.8 RATIO Normal 10-20 [facility] Comment on above: Order Comment: 210 Performed By: #### L 501.5200, L506.1001, L500.4100, L501.1400, L100.0100, L500.2500, L501.9520 #### [facility] [address] [place], [address] Calcium [Mass/Vol] 8.9 mg/dL Normal 7.6-11.0 [facility] Comment on above: Order Comment: 210 Performed By: #### L 501.5200, L506.1001, L500.4100, L501.1400, L100.0100, L500.2500, L501.9520 #### [facility] [address] [place], [address] Chloride [Moles/Vol] 98 mmol/L Normal 98-108 [facility] Comment on above: Order Comment: 210 Performed By: #### L 501.5200, L506.1001, L500.4100, L501.1400, L100.0100, L500.2500, L501.9520 #### [facility] [address] [place], [address] CO2 [Moles/Vol] 27.1 mmol/L Normal 21.0-32.0 [facility] Comment on above: Order Comment: 210 Performed By: #### L 501.5200, L506.1001, L500.4100, L501.1400, L100.0100, L500.2500, L501.9520 #### [facility] [address] [place], [address] Creatinine [Mass/Vol] 0.74 mg/dL Normal 0.70-1.20 [facility] Comment on above: Order Comment: 210 Performed By: #### L 501.5200, L506.1001, L500.4100, L501.1400, L100.0100, L500.2500, L501.9520 #### [facility] [address] [place], [address] GAP 10 Normal 5-15 [facility] Comment on above: Order Comment: 210 Performed By: #### L 501.5200, L506.1001, L500.4100, L501.1400, L100.0100, L500.2500, L501.9520 #### [facility] [address] [place], [address] GFR/1.73 sq M.predicted among non-blacks MDRD (S/P/Bld) [Vol rate/Area] 108 mL/min/{1.73_m2} Normal >60 [facility] Comment on above: Order Comment: 210 Result Comment: mL/m in/1.73m2 CKD-EPI Creatinine Equation (2020) Performed By: #### L 501.5200, L506.1001, L500.4100, L501.1400, L100.0100, L500.2500, L501.9520 #### [facility] [address] [place], [address] Glucose [Mass/Vol] 108 mg/dL High 70-99 [facility] Comment on above: Order Comment: 210 Performed By: #### L 501.5200, L506.1001, L500.4100, L501.1400, L100.0100, L500.2500, L501.9520 #### [facility] [address] [place], [address] Potassium [Moles/Vol] 4.1 mmol/L Normal 3.3-5.1 [facility] Comment on above: Order Comment: 210 Performed By: #### L 501.5200, L506.1001, L500.4100, L501.1400, L100.0100, L500.2500, L501.9520 #### [facility] [address] [place], [address] Sodium [Moles/Vol] 135 mmol/L Normal 133-145 [facility] Comment on above: Order Comment: 210 Performed By: #### L 501.5200, L506.1001, L500.4100, L501.1400, L100.0100, L500.2500, L501.9520 #### [facility] [address] [place], [address] Urea nitrogen [Mass/Vol] 10 mg/dL Normal 4-19 [facility] Comment on above: Order Comment: 210 Performed By: #### L 501.5200, L506.1001, L500.4100, L501.1400, L100.0100, L500.2500, L501.9520 #### [facility] [address] [place], [address] CBC W/Diff, Automatedon 06-0 2-2025 Absolute Lymph 1.07 X10 3/uL Normal 0.83-4.51 [facility] Comment on above: Order Comment: 210 Performed By: #### L 501.5200, L506.1001, L500.4100, L501.1400, L100.0100, L500.2500, L501.9520 #### [facility] [address] [place], [address] Absolute Neut 2.8 X10 3/uL Normal 2.0-7.7 [facility] Comment on above: Order Comment: 210 Performed By: #### L 501.5200, L506.1001, L500.4100, L501.1400, L100.0100, L500.2500, L501.9520 #### [facility] [address] [place], [address] Basophils/100 WBC (Bld) 0.7 % Normal 0-1 [facility] Comment on above: Order Comment: 210 Performed By: #### L 501.5200, L506.1001, L500.4100, L501.1400, L100.0100, L500.2500, L501.9520 #### [facility] [address] [place], [address] Eosinophils/100 WBC (Bld) 2.0 % Normal 0-5 [facility] Comment on above: Order Comment: 210 Performed By: #### L 501.5200, L506.1001, L500.4100, L501.1400, L100.0100, L500.2500, L501.9520 #### [facility] [address] [place], [address] Erythrocyte distribution width (RBC) [Ratio] 15.9 % High 11.6-14.6 [facility] Comment on above: Order Comment: 210 Performed By: #### L 501.5200, L506.1001, L500.4100, L501.1400, L100.0100, L500.2500, L501.9520 #### [facility] [address] [place], [address] Hematocrit (Bld) [Volume fraction] 41.2 % Normal 40-54 [facility] Comment on above: Order Comment: 210 Performed By: #### L 501.5200, L506.1001, L500.4100, L501.1400, L100.0100, L500.2500, L501.9520 #### [facility] [address] [place], [address] Hemoglobin (Bld) [Mass/Vol] 13.0 g/dL Normal 13.0-16.5 [facility] Comment on above: Order Comment: 210 Performed By: #### L 501.5200, L506.1001, L500.4100, L501.1400, L100.0100, L500.2500, L501.9520 #### [facility] [address] [place], [address] IG% 0.400 Normal 0.0-0.9 [facility] Comment on above: Order Comment: 210 Result Comment: IG% - Immature Granulocytes (promyelocytes, myelocytes and metamyelocytes) > 1% indicates that a LEFT SHIFT is Present. Performed By: #### L 501.5200, L506.1001, L500.4100, L501.1400, L100.0100, L500.2500, L501.9520 #### [facility] [address] [place], [address] Lymphocytes/100 WBC (Bld) 24.0 % Normal 19-41 [facility] Comment on above: Order Comment: 210 Performed By: #### L 501.5200, L506.1001, L500.4100, L501.1400, L100.0100, L500.2500, L501.9520 #### [facility] [address] [place], [address] MCH (RBC) [Entitic mass] 28.8 pg Normal 27.0-32.0 [facility] Comment on above: Order Comment: 210 Performed By: #### L 501.5200, L506.1001, L500.4100, L501.1400, L100.0100, L500.2500, L501.9520 #### [facility] [address] [place], [address] MCHC (RBC) [Mass/Vol] 31.6 g/dL Low 32-36 [facility] Comment on above: Order Comment: 210 Performed By: #### L 501.5200, L506.1001, L500.4100, L501.1400, L100.0100, L500.2500, L501.9520 #### [facility] [address] [place], [address] MCV (RBC) [Entitic vol] 91.2 fL Normal 80-94 [facility] Comment on above: Order Comment: 210 Performed By: #### L 501.5200, L506.1001, L500.4100, L501.1400, L100.0100, L500.2500, L501.9520 #### [facility] [address] [place], [address] Monocytes/100 WBC (Bld) 11.0 % High 0-10 [facility] Comment on above: Order Comment: 210 Performed By: #### L 501.5200, L506.1001, L500.4100, L501.1400, L100.0100, L500.2500, L501.9520 #### [facility] [address] [place], [address] Neutrophils/100 WBC (Bld) 61.9 % Normal 47-70 [facility] Comment on above: Order Comment: 210 Performed By: #### L 501.5200, L506.1001, L500.4100, L501.1400, L100.0100, L500.2500, L501.9520 #### [facility] [address] [place], [address] Nucleated RBC (Bld) [#/Vol] 0 10*3/uL Normal 0-5 [facility] Comment on above: Order Comment: 210 Performed By: #### L 501.5200, L506.1001, L500.4100, L501.1400, L100.0100, L500.2500, L501.9520 #### [facility] [address] [place], [address] Platelet mean volume (Bld) [Entitic vol] 9.6 fL Normal 6.2-12.0 [facility] Comment on above: Order Comment: 210 Performed By: #### L 501.5200, L506.1001, L500.4100, L501.1400, L100.0100, L500.2500, L501.9520 #### [facility] [address] [place], [address] Platelets (Bld) [#/Vol] 154 10*3/uL Normal 150-450 [facility] Comment on above: Order Comment: 210 Performed By: #### L 501.5200, L506.1001, L500.4100, L501.1400, L100.0100, L500.2500, L501.9520 #### [facility] [address] [place], [address] RBC (Bld) [#/Vol] 4.52 10*6/uL Low 4.6-6.2 [facility] Comment on above: Order Comment: 210 Performed By: #### L 501.5200, L506.1001, L500.4100, L501.1400, L100.0100, L500.2500, L501.9520 #### [facility] [address] [place], [address] RDW SD 53.1 fl High 35.1-43.9 [facility] Comment on above: Order Comment: 210 Performed By: #### L 501.5200, L506.1001, L500.4100, L501.1400, L100.0100, L500.2500, L501.9520 #### [facility] [address] [place], [address] WBC (Bld) [#/Vol] 4.5 10*3/uL Normal 4.4-11.0 [facility] Comment on above: Order Comment: 210 Performed By: #### L 501.5200, L506.1001, L500.4100, L501.1400, L100.0100, L500.2500, L501.9520 #### [facility] [address] [place], [address] Lipid Profileon 10-28-2024 CHOL:HDL 4.07 Normal [facility] Comment on above: Order Comment: 210 Performed By: #### L 501.5200, L506.1001, L500.4100, L501.1400, L100.0100, L500.2500, L501.9520 #### [facility] [address] [place], [address] Cholesterol [Mass/Vol] 95 mg/dL Normal <=200 [facility] Comment on above: Order Comment: 210 Result Comment: Chol esterol level, Desirable <200 mg/dL Borderline high cholesterol 200-239 mg/dL High cholesterol >=240 mg/dL Recommendations of the NCEP Adult Treatment Panel for the following risk-cutoff thresholds for the [place] population. Performed By: #### L 501.5200, L506.1001, L500.4100, L501.1400, L100.0100, L500.2500, L501.9520 #### [facility] [address] [place], [address] Cholesterol in HDL [Mass/Vol] 23 mg/dL Low [facility] Comment on above: Order Comment: 210 Result Comment: Fern onal Cholesterol Education Program (NCEP) guidelines: <40 mg/dL: Low HDL-cholesterol (major risk factor for CHD) >= 60 mg/dL: High HDL-cholesterol (negative risk factor for CHD) HDL-cholesterol is affected by a number of factors, e.g. smoking, exercise, hormones, sex and age. Performed By: #### L 501.5200, L506.1001, L500.4100, L501.1400, L100.0100, L500.2500, L501.9520 #### [facility] [address] [place], [address] Cholesterol in LDL [Mass/Vol] 46 mg/dL Normal [facility] Comment on above: Order Comment: 210 Result Comment: Bord yrdtew=487-906 mg/dL Higher Aggr=838 mg/dL or greater Performed By: #### L 501.5200, L506.1001, L500.4100, L501.1400, L100.0100, L500.2500, L501.9520 #### [facility] [address] [place], [address] Cholesterol in VLDL [Mass/Vol] 26 mg/dL Normal 5-40 [facility] Comment on above: Order Comment: 210 Performed By: #### L 501.5200, L506.1001, L500.4100, L501.1400, L100.0100, L500.2500, L501.9520 #### [facility] [address] [place], [address] Triglyceride [Mass/Vol] 129 mg/dL Normal [facility] Comment on above: Order Comment: 210 Result Comment: The drugs N-Acetylcysteine and Metamizole may falsely depress this assay. Normal range: <150 mg/dL Borderline High: 150-199 mg/dL High: 200-499 mg/dL Very High: >500 mg/dL Performed By: #### L 501.5200, L506.1001, L500.4100, L501.1400, L100.0100, L500.2500, L501.9520 #### [facility] [address] [place], [place], [address] Magnesiumon 10-28-2024 Magnesium [Mass/Vol] 2.2 mg/dL Normal 1.5-2.2 [facility] Comment on above: Order Comment: 210 Performed By: #### L 501.5200, L506.1001, L500.4100, L501.1400, L100.0100, L500.2500, L501.9520 #### [facility] [address] [place], [place], [id number] Thyroid Stim Hormone (TSH)on 10-28-2024 TSH 3.370 uIU/mL Normal 0.300-4.200 [facility] Comment on above: Order Comment: 210 Performed By: #### L 501.5200, L506.1001, L500.4100, L501.1400, L100.0100, L500.2500, L501.9520 #### [facility] [address] [place], [place], [id number] [phone] Uric Acidon 10-28-2024 URIC 5.8 mg/dL Normal 3.5-7.2 [facility] Comment on above: Order Comment: 210 Result Comment: The drugs N-Acetylcysteine and Metamizole may falsely depress this assay. Performed By: #### L 501.5200, L506.1001, L500.4100, L501.1400, L100.0100, L500.2500, L501.9520 #### [facility] [address] [place], [place], [id number] Vitamin D,25 Hydroxyon 10-28 Vitamin D 25-OH < 6.0 Low 30-100 [facility] Comment on above: Order Comment: 210 Result Comment: Colleen min D Status Deficiency: <20 ng/mL (50nmol/L) Insufficiency: 20-30 ng/mL (50-75 nmol/L) Sufficiency: 30-100 ng/mL (75-250 nmol/L) Toxicity: >100 ng/mL (>250 nmol/L) Performed By: #### L 501.5200, L506.1001, L500.4100, L501.1400, L100.0100, L500.2500, L501.9520 #### [facility] [address] [place], [address] CBC-Complete Blood Cnt No Di ffon 10-24-2024 Erythrocyte distribution width (RBC) [Ratio] 15.6 % High 11.6-14.6 [facility] Comment on above: Performed By: #### L 100.0500, L500.4050 #### [facility] [address] [place], [address] Hematocrit (Bld) [Volume fraction] 40.1 % Normal 40-54 [facility] Comment on above: Performed By: #### L 100.0500, L500.4050 #### [facility] [address] [place], [address] Hemoglobin (Bld) [Mass/Vol] 12.7 g/dL Low 13.0-16.5 [facility] Comment on above: Performed By: #### L 100.0500, L500.4050 #### [facility] [address] [place], [address] MCH (RBC) [Entitic mass] 28.7 pg Normal 27.0-32.0 [facility] Comment on above: Performed By: #### L 100.0500, L500.4050 #### [facility] [address] [place], [address] MCHC (RBC) [Mass/Vol] 31.7 g/dL Low 32-36 [facility] Comment on above: Performed By: #### L 100.0500, L500.4050 #### [facility] [address] [place], [address] MCV (RBC) [Entitic vol] 90.7 fL Normal 80-94 [facility] Comment on above: Performed By: #### L 100.0500, L500.4050 #### [facility] [address] [place], [address] Platelet mean volume (Bld) [Entitic vol] 9.3 fL Normal 6.2-12.0 [facility] Comment on above: Performed By: #### L 100.0500, L500.4050 #### [facility] [address] [place], [address] Platelets (Bld) [#/Vol] 155 10*3/uL Normal 150-450 [facility] Comment on above: Performed By: #### L 100.0500, L500.4050 #### [facility] [address] [place], [address] RBC (Bld) [#/Vol] 4.42 10*6/uL Low 4.6-6.2 [facility] Comment on above: Performed By: #### L 100.0500, L500.4050 #### [facility] [address] [place], [address] RDW SD 51.8 fl High 35.1-43.9 [facility] Comment on above: Performed By: #### L 100.0500, L500.4050 #### [facility] [address] [place], [address] WBC (Bld) [#/Vol] 4.6 10*3/uL Normal 4.4-11.0 [facility] Comment on above: Performed By: #### L 100.0500, L500.4050 #### [facility] [address] [place], [address] Comprehensive Metabolic Prof [facility] 10-24-2024 Albumin [Mass/Vol] 3.4 g/dL Low 3.5-5.0 [facility] Comment on above: Performed By: #### L 501.5200, L506.1001, L500.4100, L501.1400, L100.0100, L500.2500, L501.9520 #### [facility] [address] [place], [address] Albumin/Globulin [Mass ratio] 1.0 {ratio} Normal 0.9-2.4 [facility] Comment on above: Performed By: #### L 501.5200, L506.1001, L500.4100, L501.1400, L100.0100, L500.2500, L501.9520 #### [facility] [address] [place], [address] ALK PHOS 76 U/L Normal 40-129 [facility] Comment on above: Performed By: #### L 501.5200, L506.1001, L500.4100, L501.1400, L100.0100, L500.2500, L501.9520 #### [facility] [address] [place], [address] ALT [Catalytic activity/Vol] 6 U/L Normal <=46 [facility] Comment on above: Performed By: #### L 501.5200, L506.1001, L500.4100, L501.1400, L100.0100, L500.2500, L501.9520 #### [facility] [address] [place], [address] AST [Catalytic activity/Vol] 18 U/L Normal <=37 [facility] Comment on above: Performed By: #### L 501.5200, L506.1001, L500.4100, L501.1400, L100.0100, L500.2500, L501.9520 #### [facility] [address] [place], [address] Bilirubin [Mass/Vol] 0.31 mg/dL Normal 0.00-1.30 [facility] Comment on above: Performed By: #### L 501.5200, L506.1001, L500.4100, L501.1400, L100.0100, L500.2500, L501.9520 #### [facility] [address] [place], [address] BUN/CRE 14.6 RATIO Normal 10-20 [facility] Comment on above: Performed By: #### L 501.5200, L506.1001, L500.4100, L501.1400, L100.0100, L500.2500, L501.9520 #### [facility] [address] [place], [address] Calcium [Mass/Vol] 9.0 mg/dL Normal 7.6-11.0 [facility] Comment on above: Performed By: #### L 501.5200, L506.1001, L500.4100, L501.1400, L100.0100, L500.2500, L501.9520 #### [facility] [address] [place], [address] Chloride [Moles/Vol] 99 mmol/L Normal 98-108 [facility] Comment on above: Performed By: #### L 501.5200, L506.1001, L500.4100, L501.1400, L100.0100, L500.2500, L501.9520 #### [facility] [address] [place], [address] CO2 [Moles/Vol] 29.2 mmol/L Normal 21.0-32.0 [facility] Comment on above: Performed By: #### L 501.5200, L506.1001, L500.4100, L501.1400, L100.0100, L500.2500, L501.9520 #### [facility] [address] [place], [address] Creatinine [Mass/Vol] 0.65 mg/dL Low 0.70-1.20 [facility] Comment on above: Performed By: #### L 501.5200, L506.1001, L500.4100, L501.1400, L100.0100, L500.2500, L501.9520 #### [facility] [address] [place], [address] GAP 9 Normal 5-15 [facility] Comment on above: Performed By: #### L 501.5200, L506.1001, L500.4100, L501.1400, L100.0100, L500.2500, L501.9520 #### [facility] [address] [place], [address] GFR/1.73 sq M.predicted among non-blacks MDRD (S/P/Bld) [Vol rate/Area] 113 mL/min/{1.73_m2} Normal >60 [facility] Comment on above: Result Comment: mL/m in/1.73m2 CKD-EPI Creatinine Equation (2020) Performed By: #### L 501.5200, L506.1001, L500.4100, L501.1400, L100.0100, L500.2500, L501.9520 #### [facility] [address] [place], [address] Globulin (S) [Mass/Vol] 3.2 g/dL Normal 2.2-4.2 [facility] Comment on above: Performed By: #### L 501.5200, L506.1001, L500.4100, L501.1400, L100.0100, L500.2500, L501.9520 #### [facility] [address] [place], [address] Glucose [Mass/Vol] 113 mg/dL High 70-99 [facility] Comment on above: Performed By: #### L 501.5200, L506.1001, L500.4100, L501.1400, L100.0100, L500.2500, L501.9520 #### [facility] [address] [place], [address] Potassium [Moles/Vol] 3.8 mmol/L Normal 3.3-5.1 [facility] Comment on above: Performed By: #### L 501.5200, L506.1001, L500.4100, L501.1400, L100.0100, L500.2500, L501.9520 #### [facility] [address] [place], [address] Sodium [Moles/Vol] 137 mmol/L Normal 133-145 [facility] Comment on above: Performed By: #### L 501.5200, L506.1001, L500.4100, L501.1400, L100.0100, L500.2500, L501.9520 #### [facility] [address] [place], [address] T PROT 6.6 g/dL Normal 5.9-8.4 [facility] Comment on above: Performed By: #### L 501.5200, L506.1001, L500.4100, L501.1400, L100.0100, L500.2500, L501.9520 #### [facility] [address] [place], [address] Urea nitrogen [Mass/Vol] 10 mg/dL Normal 4-19 [facility] Comment on above: Performed By: #### L 501.5200, L506.1001, L500.4100, L501.1400, L100.0100, L500.2500, L501.9520 #### [facility] [address] [place], [address] LABORATORYOrdered By: Samanta Morin on 10-23-2024 Blood [...] on above: Result Comment: noti fied nurse SHAHEEN Staples .Auto Diffon 10-20-2024 Basophil, Absolute 0.0 10 3/mcL Normal 0.0-0.3 [facility] Comment on above: Performed By: #### M G, GFR, ANEU, ADIFF, CBC, CMP, A1C, LIPID #### [facility] [address] [place] [address] Basophils/100 WBC (Bld) 0.6 % Normal 0.0-2.5 [facility] Comment on above: Performed By: #### M G, GFR, ANEU, ADIFF, CBC, CMP, A1C, LIPID #### [facility] [address] [place] [address] Eosinophil, Absolute 0.1 10 3/mcL Normal 0.0-0.7 [facility] Comment on above: Performed By: #### M G, GFR, ANEU, ADIFF, CBC, CMP, A1C, LIPID #### [address] [address] Eosinophils/100 WBC (Bld) 1.5 % Normal 0.0-6.0 [facility] Comment on above: Performed By: #### M G, GFR, ANEU, ADIFF, CBC, CMP, A1C, LIPID #### [address] [address] Lymphocyte, Absolute 1.0 10 3/mcL Normal 0.9-4.3 [facility] Comment on above: Performed By: #### M G, GFR, ANEU, ADIFF, CBC, CMP, A1C, LIPID #### [address] [address] Lymphocytes/100 WBC (Bld) 21.2 % Normal 20.0-40.0 [facility] Comment on above: Performed By: #### M G, GFR, ANEU, ADIFF, CBC, CMP, A1C, LIPID #### [address] [address] Monocyte, Absolute 0.6 10 3/mcL Normal 0.1-1.4 [facility] Comment on above: Performed By: #### M G, GFR, ANEU, ADIFF, CBC, CMP, A1C, LIPID #### [address] [address] Monocytes/100 WBC (Bld) 11.6 % Normal 2.0-13.0 [facility] Comment on above: Performed By: #### M G, GFR, ANEU, ADIFF, CBC, CMP, A1C, LIPID #### [address] [address] Neutrophils/100 WBC (Bld) 65.1 % Normal 50.0-75.0 [facility] Comment on above: Performed By: #### M G, GFR, ANEU, ADIFF, CBC, CMP, A1C, LIPID #### [address] [address] .GFRon 10-20-2024 Estimated Glomerular Filtration Rate 108 ml/min/1.73sqm Normal [facility] Comment on above: Result [...] ANEU, ADIFF, CBC, CMP, A1C, LIPID #### [address] [address] .NEUABSon 10-20-2024 Neutrophil, Absolute 3.2 10 3/mcL Normal 2.3-8.1 [facility] Comment on above: Performed By: #### M G, GFR, ANEU, ADIFF, CBC, CMP, A1C, LIPID #### [address] [address] BMPon 10-20-2024 BUN/Creatinine Ratio 10.8 ratio Normal 10.0-22.0 [facility] Comment on above: Performed By: #### M G, GFR, ANEU, ADIFF, CBC, CMP, A1C, LIPID #### [address] [address] Calcium [Mass/Vol] 8.7 mg/dL Normal 8.7-10.4 [facility] Comment on above: Performed By: #### M G, GFR, ANEU, ADIFF, CBC, CMP, A1C, LIPID #### [address] [address] Chloride [Moles/Vol] 97 mmol/L Low 98-110 [facility] Comment on above: Performed By: #### M G, GFR, ANEU, ADIFF, CBC, CMP, A1C, LIPID #### [address] [address] CO2 [Moles/Vol] 37 mmol/L High 22-32 [facility] Comment on above: Performed By: #### M G, GFR, ANEU, ADIFF, CBC, CMP, A1C, LIPID #### [address] [address] Creatinine [Mass/Vol] 0.74 mg/dL Normal 0.60-1.40 [facility] Comment on above: Result Comment: Test ing performed on [employer] IT analyzer using enzymatic creatinine methodology. Performed By: #### M G, GFR, ANEU, ADIFF, CBC, CMP, A1C, LIPID #### [address] [address] Electrolyte Balance 4.0 mEq/L Normal 4.0-15.0 [facility] Comment on above: Performed By: #### M G, GFR, ANEU, ADIFF, CBC, CMP, A1C, LIPID #### [address] [address] Glucose [Mass/Vol] 116 mg/dL High 70-110 [facility] Comment on above: Performed By: #### M G, GFR, ANEU, ADIFF, CBC, CMP, A1C, LIPID #### [address] [address] Potassium [Moles/Vol] 3.5 mmol/L Normal 3.5-5.0 [facility] Comment on above: Performed By: #### M G, GFR, ANEU, ADIFF, CBC, CMP, A1C, LIPID #### [address] [address] Sodium [Moles/Vol] 138 mmol/L Normal 136-145 [facility] Comment on above: Performed By: #### M G, GFR, ANEU, ADIFF, CBC, CMP, A1C, LIPID #### [address] [address] Urea nitrogen [Mass/Vol] 8.0 mg/dL Normal 8.0-22.0 [facility] Comment on above: Performed By: #### M G, GFR, ANEU, ADIFF, CBC, CMP, A1C, LIPID #### [address] [address] CBCon 10-20-2024 Erythrocyte distribution width (RBC) [Ratio] 16.8 % High 11.5-15.5 [facility] Comment on above: Performed By: #### M G, GFR, ANEU, ADIFF, CBC, CMP, A1C, LIPID #### [place] [address] Hematocrit (Bld) [Volume fraction] 41.3 % Normal 40.0-52.0 [facility] Comment on above: Performed By: #### M G, GFR, ANEU, ADIFF, CBC, CMP, A1C, LIPID #### [place] [id number] Hgb 13.4 G/dL Normal 13.0-17.5 [facility] Comment on above: Performed By: #### M G, GFR, ANEU, ADIFF, CBC, CMP, A1C, LIPID #### [place] [id number] MCH (RBC) [Entitic mass] 28.7 pg Normal 27.0-33.0 [facility] Comment on above: Performed By: #### M G, GFR, ANEU, ADIFF, CBC, CMP, A1C, LIPID #### [place] [address] MCHC 32.4 G/dL Normal 32.0-36.0 [facility] Comment on above: Performed By: #### M G, GFR, ANEU, ADIFF, CBC, CMP, A1C, LIPID #### [place] [id number] MCV (RBC) [Entitic vol] 88.5 fL Normal 81.0-100.0 [facility] Comment on above: Performed By: #### M G, GFR, ANEU, ADIFF, CBC, CMP, A1C, LIPID #### [place] [id number] Platelet 175 10 3/mcL Normal 150-450 [facility] Comment on above: Performed By: #### M G, GFR, ANEU, ADIFF, CBC, CMP, A1C, LIPID #### [place] [id number] Platelet mean volume (Bld) [Entitic vol] 7.3 fL Normal 6.4-10.5 [facility] Comment on above: Performed By: #### M G, GFR, ANEU, ADIFF, CBC, CMP, A1C, LIPID #### [place] [id number] [place] [address] RBC 4.67 10 6/mcL Normal 4.50-6.00 [facility] Comment on above: Performed By: #### M G, GFR, ANEU, ADIFF, CBC, CMP, A1C, LIPID #### [facility] [address] [place] [address] WBC 4.8 10 3/mcL Normal 4.5-10.8 [facility] Comment on above: Performed By: #### M G, GFR, ANEU, ADIFF, CBC, CMP, A1C, LIPID #### [place] [id number] [place] [address] LABORATORYOrdered By: SYSTEM SYSTEM on 10-20-2024 Basophils (Bld) [#/Vol] 0.0 103/mcL Normal 0.0 - 0.3 10^3/mcL Workflow SS Basophils/100 WBC (Bld) 0.6 % Normal 0.0 - 2.5 % Workflow SS Calcium [Mass/Vol] 8.7 mg/dL Normal 8.7 - 10. 4 mg/dL ADM SS Chloride [Moles/Vol] 97 mmol/L Low 98 - 11 0 mEq/L ADM SS CO2 [Moles/Vol] 37 mmol/L High 22 - 32 mEq/L ADM SS Creatinine [Mass/Vol] 0.74 mg/dL Normal 0.60 - 1.40 mg/dL ADM SS Comment on above: Interpretive Data: T esting performed on [employer] IT analyzer using enzymatic creatinine methodology. Electrolyte Balance [...] 116 mg/dL High 70 - 110 mg/dL AH ADM SS Hematocrit (Bld) [Volume fraction] 41.3 % Normal 40.0 - 52.0 % AH Workflow SS Hemoglobin (Bld) [Mass/Vol] 13.4 G/dL Normal 13.0 - 17.5 G/dL AH Workflow SS Lymphocytes (Bld) [#/Vol] 1.0 103/mcL Normal 0.9 - 4.3 10^3/mcL AH Workflow SS Lymphocytes/100 WBC (Bld) 21.2 % Normal 20.0 - 40.0 % AH Workflow SS MCH (RBC) [Entitic mass] 28.7 pg Normal 27.0 - 33.0 pg AH Workflow SS MCHC 32.4 G/dL Normal 32.0 - 36.0 G/dL AH Workflow SS MCV (RBC) [Entitic vol] 88.5 [...] 65.1 % Normal 50.0 - 75.0 % AH Workflow SS Platelet mean volume (Bld) [Entitic vol] 7.3 fL Normal 6.4 - 10.5 fL AH Workflow SS Platelets (Bld) [#/Vol] 175 103/mcL Normal 150 - 450 10^3/mcL AH Workflow SS Potassium [Moles/Vol] 3.5 mmol/L Normal 3.5 - 5.0 mEq/L ADM SS RBC (Bld) [#/Vol] 4.67 106/mcL Normal 4.50 - 6.0 0 10^6/mcL Workflow SS Sodium [Moles/Vol] 138 mmol/L Normal 136 - 145 mEq/L ADM SS Urea nitrogen [Mass/Vol] 8.0 mg/dL Normal 8.0 - 22.0 mg/dL ADM SS Urea nitrogen/Creatinine [Mass ratio] 10.8 ratio Normal 10.0 - 22.0 ratio ADM SS WBC (Bld) [#/Vol] 4.8 103/mcL Normal 4.5 - 10.8 10^3/mcL Workflow SS .Auto Diffon 10-19-2024 Basophil, Absolute 0.0 10 3/mcL Normal 0.0-0.3 [facility] Comment on above: Performed By: #### M G, GFR, ANEU, ADIFF, CBC, CMP, A1C, LIPID #### [address] [address] Basophils/100 WBC (Bld) 0.7 % Normal 0.0-2.5 [facility] Comment on above: Performed By: #### M G, GFR, ANEU, ADIFF, CBC, CMP, A1C, LIPID #### [address] [address] Eosinophil, Absolute 0.1 10 3/mcL Normal 0.0-0.7 [facility] Comment on above: Performed By: #### M G, GFR, ANEU, ADIFF, CBC, CMP, A1C, LIPID #### [address] [address] Eosinophils/100 WBC (Bld) 1.9 % Normal 0.0-6.0 [facility] Comment on above: Performed By: #### M G, GFR, ANEU, ADIFF, CBC, CMP, A1C, LIPID #### [address] [address] Lymphocyte, Absolute 1.0 10 3/mcL Normal 0.9-4.3 [facility] Comment on above: Performed By: #### M G, GFR, ANEU, ADIFF, CBC, CMP, A1C, LIPID #### [place] [id number] [place] [address] Lymphocytes/100 WBC (Bld) 18.3 % Low 20.0-40.0 [facility] Comment on above: Performed By: #### M G, GFR, ANEU, ADIFF, CBC, CMP, A1C, LIPID #### [place] [id number] [place] [address] Monocyte, Absolute 0.5 10 3/mcL Normal 0.1-1.4 [facility] Comment on above: Performed By: #### M G, GFR, ANEU, ADIFF, CBC, CMP, A1C, LIPID #### [address] [address] Monocytes/100 WBC (Bld) 9.1 % Normal 2.0-13.0 [facility] Comment on above: Performed By: #### M G, GFR, ANEU, ADIFF, CBC, CMP, A1C, LIPID #### [address] [address] Neutrophils/100 WBC (Bld) 70.0 % Normal 50.0-75.0 [facility] Comment on above: Performed By: #### M G, GFR, ANEU, ADIFF, CBC, CMP, A1C, LIPID #### [address] [address] .GFRon 10-19-2024 Estimated Glomerular Filtration Rate 109 ml/min/1.73sqm Normal [facility] Comment on above: Result [...] ANEU, ADIFF, CBC, CMP, A1C, LIPID #### [address] [address] .NEUABSon 10-19-2024 Neutrophil, Absolute 3.8 10 3/mcL Normal 2.3-8.1 [facility] Comment on above: Performed By: #### M G, GFR, ANEU, ADIFF, CBC, CMP, A1C, LIPID #### [address] [address] BMPon 10-19-2024 BUN/Creatinine Ratio 11.1 ratio Normal 10.0-22.0 [facility] Comment on above: Performed By: #### M G, GFR, ANEU, ADIFF, CBC, CMP, A1C, LIPID #### [place] [address] Calcium [Mass/Vol] 8.7 mg/dL Normal 8.7-10.4 [facility] Comment on above: Performed By: #### M G, GFR, ANEU, ADIFF, CBC, CMP, A1C, LIPID #### [place] [address] Chloride [Moles/Vol] 100 mmol/L Normal 98-110 [facility] Comment on above: Performed By: #### M G, GFR, ANEU, ADIFF, CBC, CMP, A1C, LIPID #### [place] [id number] CO2 [Moles/Vol] 33 mmol/L High 22-32 [facility] Comment on above: Performed By: #### M G, GFR, ANEU, ADIFF, CBC, CMP, A1C, LIPID #### [place] [id number] Creatinine [Mass/Vol] 0.72 mg/dL Normal 0.60-1.40 [facility] Comment on above: Result Comment: Test ing performed on [employer] IT analyzer using enzymatic creatinine methodology. Performed By: #### M G, GFR, ANEU, ADIFF, CBC, CMP, A1C, LIPID #### [place] [id number] Electrolyte Balance 4.0 mEq/L Normal 4.0-15.0 [facility] Comment on above: Performed By: #### M G, GFR, ANEU, ADIFF, CBC, CMP, A1C, LIPID #### [address] [address] Glucose [Mass/Vol] 181 mg/dL High 70-110 [facility] Comment on above: Performed By: #### M G, GFR, ANEU, ADIFF, CBC, CMP, A1C, LIPID #### [address] [address] Potassium [Moles/Vol] 3.5 mmol/L Normal 3.5-5.0 [facility] Comment on above: Performed By: #### M G, GFR, ANEU, ADIFF, CBC, CMP, A1C, LIPID #### [address] [address] Sodium [Moles/Vol] 137 mmol/L Normal 136-145 [facility] Comment on above: Performed By: #### M G, GFR, ANEU, ADIFF, CBC, CMP, A1C, LIPID #### [address] [address] Urea nitrogen [Mass/Vol] 8.0 mg/dL Normal 8.0-22.0 [facility] Comment on above: Performed By: #### M G, GFR, ANEU, ADIFF, CBC, CMP, A1C, LIPID #### [address] [address] CBCon 10-19-2024 Erythrocyte distribution width (RBC) [Ratio] 17.3 % High 11.5-15.5 [facility] Comment on above: Performed By: #### M G, GFR, ANEU, ADIFF, CBC, CMP, A1C, LIPID #### [address] [address] Hematocrit (Bld) [Volume fraction] 40.5 % Normal 40.0-52.0 [facility] Comment on above: Performed By: #### M G, GFR, ANEU, ADIFF, CBC, CMP, A1C, LIPID #### [address] [address] Hgb 13.0 G/dL Normal 13.0-17.5 [facility] Comment on above: Performed By: #### M G, GFR, ANEU, ADIFF, CBC, CMP, A1C, LIPID #### [place] [address] MCH (RBC) [Entitic mass] 28.6 pg Normal 27.0-33.0 [facility] Comment on above: Performed By: #### M G, GFR, ANEU, ADIFF, CBC, CMP, A1C, LIPID #### [place] [address] MCHC 32.1 G/dL Normal 32.0-36.0 [facility] Comment on above: Performed By: #### M G, GFR, ANEU, ADIFF, CBC, CMP, A1C, LIPID #### [place] [address] MCV (RBC) [Entitic vol] 89.2 fL Normal 81.0-100.0 [facility] Comment on above: Performed By: #### M G, GFR, ANEU, ADIFF, CBC, CMP, A1C, LIPID #### [place] [address] Platelet 171 10 3/mcL Normal 150-450 [facility] Comment on above: Performed By: #### M G, GFR, ANEU, ADIFF, CBC, CMP, A1C, LIPID #### [place] [address] Platelet mean volume (Bld) [Entitic vol] 7.6 fL Normal 6.4-10.5 [facility] Comment on above: Performed By: #### M G, GFR, ANEU, ADIFF, CBC, CMP, A1C, LIPID #### [place] [id number] RBC 4.54 10 6/mcL Normal 4.50-6.00 [facility] Comment on above: Performed By: #### M G, GFR, ANEU, ADIFF, CBC, CMP, A1C, LIPID #### [place] [id number] WBC 5.4 10 3/mcL Normal 4.5-10.8 [facility] Comment on above: Performed By: #### M G, GFR, ANEU, ADIFF, CBC, CMP, A1C, LIPID #### [place] [address] LABORATORYOrdered By: SYSTEM SYSTEM on 10-19-2024 Basophils [...] 0.72 mg/dL Normal 0.60 - 1.40 mg/dL AH ADM SS Comment on above: Interpretive Data: T esting performed on [employer] IT analyzer using enzymatic creatinine methodology. Electrolyte Balance [...] 32.1 G/dL Normal 32.0 - 36.0 G/dL Workflow SS MCV (RBC) [Entitic vol] 89.2 [...] 70.0 % Normal 50.0 - 75.0 % AH Workflow SS Platelet mean volume (Bld) [Entitic vol] 7.6 fL Normal 6.4 - 10.5 fL AH Workflow SS Platelets (Bld) [#/Vol] 171 103/mcL Normal 150 - 450 10^3/mcL AH Workflow SS Potassium [Moles/Vol] 3.5 mmol/L Normal 3.5 - 5.0 mEq/L AH ADM SS RBC (Bld) [#/Vol] 4.54 106/mcL Normal 4.50 - 6.0 0 10^6/mcL AH Workflow SS Sodium [Moles/Vol] 137 mmol/L Normal 136 - 145 mEq/L ADM SS Urea nitrogen [Mass/Vol] 8.0 mg/dL Normal 8.0 - 22.0 mg/dL ADM SS Urea nitrogen/Creatinine [Mass ratio] 11.1 ratio Normal 10.0 - 22.0 ratio AH ADM SS WBC (Bld) [#/Vol] 5.4 103/mcL Normal 4.5 - 10.8 10^3/mcL AH Workflow SS .Auto Diffon 10-18-2024 Basophil, Absolute 0.0 10 3/mcL Normal 0.0-0.3 [facility] Comment on above: Performed By: #### M G, GFR, ANEU, ADIFF, CBC, CMP, A1C, LIPID #### [address] [address] Basophils/100 WBC (Bld) 0.6 % Normal 0.0-2.5 [facility] Comment on above: Performed By: #### M G, GFR, ANEU, ADIFF, CBC, CMP, A1C, LIPID #### [address] [address] Eosinophil, Absolute 0.1 10 3/mcL Normal 0.0-0.7 [facility] Comment on above: Performed By: #### M G, GFR, ANEU, ADIFF, CBC, CMP, A1C, LIPID #### [address] [address] Eosinophils/100 WBC (Bld) 1.7 % Normal 0.0-6.0 [facility] Comment on above: Performed By: #### M G, GFR, ANEU, ADIFF, CBC, CMP, A1C, LIPID #### [address] [address] Lymphocyte, Absolute 1.2 10 3/mcL Normal 0.9-4.3 [facility] Comment on above: Performed By: #### M G, GFR, ANEU, ADIFF, CBC, CMP, A1C, LIPID #### [address] [address] Lymphocytes/100 WBC (Bld) 19.0 % Low 20.0-40.0 [facility] Comment on above: Performed By: #### M G, GFR, ANEU, ADIFF, CBC, CMP, A1C, LIPID #### [address] [address] Monocyte, Absolute 0.9 10 3/mcL Normal 0.1-1.4 [facility] Comment on above: Performed By: #### M G, GFR, ANEU, ADIFF, CBC, CMP, A1C, LIPID #### [address] [address] Monocytes/100 WBC (Bld) 14.1 % High 2.0-13.0 [facility] Comment on above: Performed By: #### M G, GFR, ANEU, ADIFF, CBC, CMP, A1C, LIPID #### [address] [address] Neutrophils/100 WBC (Bld) 64.6 % Normal 50.0-75.0 [facility] Comment on above: Performed By: #### M G, GFR, ANEU, ADIFF, CBC, CMP, A1C, LIPID #### [address] [address] Basophil, Absolute 0.0 10 3/mcL Normal 0.0-0.3 [facility] Comment on above: Performed By: #### M G, GFR, ANEU, ADIFF, CBC, CMP, A1C, LIPID #### [address] [address] Basophils/100 WBC (Bld) 0.4 % Normal 0.0-2.5 [facility] Comment on above: Performed By: #### M G, GFR, ANEU, ADIFF, CBC, CMP, A1C, LIPID #### [address] [address] Eosinophil, Absolute 0.1 10 3/mcL Normal 0.0-0.7 [facility] Comment on above: Performed By: #### M G, GFR, ANEU, ADIFF, CBC, CMP, A1C, LIPID #### [address] [address] Eosinophils/100 WBC (Bld) 1.2 % Normal 0.0-6.0 [facility] Comment on above: Performed By: #### M G, GFR, ANEU, ADIFF, CBC, CMP, A1C, LIPID #### [address] [address] Lymphocyte, Absolute 0.7 10 3/mcL Low 0.9-4.3 [facility] Comment on above: Performed By: #### M G, GFR, ANEU, ADIFF, CBC, CMP, A1C, LIPID #### [address] [address] Lymphocytes/100 WBC (Bld) 16.1 % Low 20.0-40.0 [facility] Comment on above: Performed By: #### M G, GFR, ANEU, ADIFF, CBC, CMP, A1C, LIPID #### [address] [address] Monocyte, Absolute 0.5 10 3/mcL Normal 0.1-1.4 [facility] Comment on above: Performed By: #### M G, GFR, ANEU, ADIFF, CBC, CMP, A1C, LIPID #### [address] [id number] Monocytes/100 WBC (Bld) 11.8 % Normal 2.0-13.0 [facility] Comment on above: Performed By: #### M G, GFR, ANEU, ADIFF, CBC, CMP, A1C, LIPID #### [address] [id number] Neutrophils/100 WBC (Bld) 70.5 % Normal 50.0-75.0 [facility] Comment on above: Performed By: #### M G, GFR, ANEU, ADIFF, CBC, CMP, A1C, LIPID #### [address] [id number] .GFRon 10-18-2024 Estimated Glomerular Filtration Rate 112 ml/min/1.73sqm Normal [facility] Comment on above: Result [...] ANEU, ADIFF, CBC, CMP, A1C, LIPID #### [place] [id number] Estimated Glomerular Filtration Rate 114 ml/min/1.73sqm Normal [facility] Comment on above: Result [...] ANEU, ADIFF, CBC, CMP, A1C, LIPID #### [place] [id number] .NEUABSon 10-18-2024 Neutrophil, Absolute 3.9 10 3/mcL Normal 2.3-8.1 [facility] Comment on above: Performed By: #### M G, GFR, ANEU, ADIFF, CBC, CMP, A1C, LIPID #### [place] [id number] Neutrophil, Absolute 3.3 10 3/mcL Normal 2.3-8.1 [facility] Comment on above: Performed By: #### M G, GFR, ANEU, ADIFF, CBC, CMP, A1C, LIPID #### [address] [id number] BMPon 10-18-2024 BUN/Creatinine Ratio 9.0 ratio Low 10.0-22.0 [facility] Comment on above: Performed By: #### M G, GFR, ANEU, ADIFF, CBC, CMP, A1C, LIPID #### [place] [id number] Calcium [Mass/Vol] 8.7 mg/dL Normal 8.7-10.4 [facility] Comment on above: Performed By: #### M G, GFR, ANEU, ADIFF, CBC, CMP, A1C, LIPID #### [address] [id number] Chloride [Moles/Vol] 99 mmol/L Normal 98-110 [facility] Comment on above: Performed By: #### M G, GFR, ANEU, ADIFF, CBC, CMP, A1C, LIPID #### [address] [id number] CO2 [Moles/Vol] 33 mmol/L High 22-32 [facility] Comment on above: Performed By: #### M G, GFR, ANEU, ADIFF, CBC, CMP, A1C, LIPID #### [address] [id number] Creatinine [Mass/Vol] 0.67 mg/dL Normal 0.60-1.40 [facility] Comment on above: Result Comment: Test ing performed on [employer] analyzer using enzymatic creatinine methodology. Performed By: #### M G, GFR, ANEU, ADIFF, CBC, CMP, A1C, LIPID #### [address] [id number] Electrolyte Balance 5.0 mEq/L Normal 4.0-15.0 [facility] Comment on above: Performed By: #### M G, GFR, ANEU, ADIFF, CBC, CMP, A1C, LIPID #### [address] [id number] Glucose [Mass/Vol] 115 mg/dL High 70-110 [facility] Comment on above: Performed By: #### M G, GFR, ANEU, ADIFF, CBC, CMP, A1C, LIPID #### [address] [id number] Potassium [Moles/Vol] 3.4 mmol/L Low 3.5-5.0 [facility] Comment on above: Performed By: #### M G, GFR, ANEU, ADIFF, CBC, CMP, A1C, LIPID #### [address] [id number] Sodium [Moles/Vol] 137 mmol/L Normal 136-145 [facility] Comment on above: Performed By: #### M G, GFR, ANEU, ADIFF, CBC, CMP, A1C, LIPID #### [address] [id number] Urea nitrogen [Mass/Vol] 6.0 mg/dL Low 8.0-22.0 [facility] Comment on above: Performed By: #### M G, GFR, ANEU, ADIFF, CBC, CMP, A1C, LIPID #### [id number] [address] [address] BUN/Creatinine Ratio Unable to Calculate Normal 10.0-2 2.0 [facility] Comment on above: Order Comment: Pleas e draw daily labs at 3 AM for 3 days Result Comment: Unab le to calculate this test result accurately. Results used to calculate this test are outside the reportable range. Performed By: #### M G, GFR, ANEU, ADIFF, CBC, CMP, A1C, LIPID #### [address] [address] Urea nitrogen [Mass/Vol] mg/dL Low 8.0-22.0 [facility] Comment on above: Order Comment: Pleas e draw daily labs at 3 AM for 3 days Performed By: #### M G, GFR, ANEU, ADIFF, CBC, CMP, A1C, LIPID #### [address] [address] Calcium [Mass/Vol] 9.2 mg/dL Normal 8.7-10.4 [facility] Comment on above: Order Comment: Pleas e draw daily labs at 3 AM for 3 days Performed By: #### M G, GFR, ANEU, ADIFF, CBC, CMP, A1C, LIPID #### [address] [address] Chloride [Moles/Vol] 101 mmol/L Normal 98-110 [facility] Comment on above: Order Comment: Pleas e draw daily labs at 3 AM for 3 days Performed By: #### M G, GFR, ANEU, ADIFF, CBC, CMP, A1C, LIPID #### [address] [address] CO2 [Moles/Vol] 33 mmol/L High 22-32 [facility] Comment on above: Order Comment: Pleas e draw daily labs at 3 AM for 3 days Performed By: #### M G, GFR, ANEU, ADIFF, CBC, CMP, A1C, LIPID #### [address] [address] Creatinine [Mass/Vol] 0.63 mg/dL Normal 0.60-1.40 [facility] Comment on above: Order Comment: Pleas e draw daily labs at 3 AM for 3 days Result Comment: Test ing performed on [employer] IT analyzer using enzymatic creatinine methodology. Performed By: #### M G, GFR, ANEU, ADIFF, CBC, CMP, A1C, LIPID #### [address] [address] Electrolyte Balance 5.0 mEq/L Normal 4.0-15.0 [facility] Comment on above: Order Comment: Pleas e draw daily labs at 3 AM for 3 days Performed By: #### M G, GFR, ANEU, ADIFF, CBC, CMP, A1C, LIPID #### [address] [address] Glucose [Mass/Vol] 110 mg/dL Normal 70-110 [facility] Comment on above: Order Comment: Pleas e draw daily labs at 3 AM for 3 days Performed By: #### M G, GFR, ANEU, ADIFF, CBC, CMP, A1C, LIPID #### [address] [address] Potassium [Moles/Vol] 3.6 mmol/L Normal 3.5-5.0 [facility] Comment on above: Order Comment: Pleas e draw daily labs at 3 AM for 3 days Performed By: #### M G, GFR, ANEU, ADIFF, CBC, CMP, A1C, LIPID #### [address] [address] Sodium [Moles/Vol] 139 mmol/L Normal 136-145 [facility] Comment on above: Order Comment: Pleas e draw daily labs at 3 AM for 3 days Performed By: #### M G, GFR, ANEU, ADIFF, CBC, CMP, A1C, LIPID #### [place] [id number] CBCon 10-18-2024 Erythrocyte distribution width (RBC) [Ratio] 17.3 % High 11.5-15.5 [facility] Comment on above: Performed By: #### M G, GFR, ANEU, ADIFF, CBC, CMP, A1C, LIPID #### [place] [address] Hematocrit (Bld) [Volume fraction] 41.4 % Normal 40.0-52.0 [facility] Comment on above: Performed By: #### M G, GFR, ANEU, ADIFF, CBC, CMP, A1C, LIPID #### [place] [address] Hgb 13.5 G/dL Normal 13.0-17.5 [facility] Comment on above: Performed By: #### M G, GFR, ANEU, ADIFF, CBC, CMP, A1C, LIPID #### [place] [address] MCH (RBC) [Entitic mass] 28.9 pg Normal 27.0-33.0 [facility] Comment on above: Performed By: #### M G, GFR, ANEU, ADIFF, CBC, CMP, A1C, LIPID #### [place] [address] MCHC 32.7 G/dL Normal 32.0-36.0 [facility] Comment on above: Performed By: #### M G, GFR, ANEU, ADIFF, CBC, CMP, A1C, LIPID #### [place] [address] MCV (RBC) [Entitic vol] 88.4 fL Normal 81.0-100.0 [facility] Comment on above: Performed By: #### M G, GFR, ANEU, ADIFF, CBC, CMP, A1C, LIPID #### [place] [address] Platelet 158 10 3/mcL Normal 150-450 [facility] Comment on above: Performed By: #### M G, GFR, ANEU, ADIFF, CBC, CMP, A1C, LIPID #### [place] [address] Platelet mean volume (Bld) [Entitic vol] 7.9 fL Normal 6.4-10.5 [facility] Comment on above: Performed By: #### M G, GFR, ANEU, ADIFF, CBC, CMP, A1C, LIPID #### [place] [address] RBC 4.68 10 6/mcL Normal 4.50-6.00 [facility] Comment on above: Performed By: #### M G, GFR, ANEU, ADIFF, CBC, CMP, A1C, LIPID #### [place] [id number] WBC 6.1 10 3/mcL Normal 4.5-10.8 [facility] Comment on above: Performed By: #### M G, GFR, ANEU, ADIFF, CBC, CMP, A1C, LIPID #### [place] [id number] Erythrocyte distribution width (RBC) [Ratio] 16.9 % High 11.5-15.5 [facility] Comment on above: Order Comment: Colle ct blood every day at 3 AM for the next 3 days. Performed By: #### M G, GFR, ANEU, ADIFF, CBC, CMP, A1C, LIPID #### [place] [id number] Hematocrit (Bld) [Volume fraction] 41.4 % Normal 40.0-52.0 [facility] Comment on above: Order Comment: Colle ct blood every day at 3 AM for the next 3 days. Performed By: #### M G, GFR, ANEU, ADIFF, CBC, CMP, A1C, LIPID #### [place] [address] Hgb 13.6 G/dL Normal 13.0-17.5 [facility] Comment on above: Order Comment: Colle ct blood every day at 3 AM for the next 3 days. Performed By: #### M G, GFR, ANEU, ADIFF, CBC, CMP, A1C, LIPID #### [place] [id number] MCH (RBC) [Entitic mass] 29.0 pg Normal 27.0-33.0 [facility] Comment on above: Order Comment: Colle ct blood every day at 3 AM for the next 3 days. Performed By: #### M G, GFR, ANEU, ADIFF, CBC, CMP, A1C, LIPID #### [place] [address] MCHC 32.8 G/dL Normal 32.0-36.0 [facility] Comment on above: Order Comment: Colle ct blood every day at 3 AM for the next 3 days. Performed By: #### M G, GFR, ANEU, ADIFF, CBC, CMP, A1C, LIPID #### [place] [address] MCV (RBC) [Entitic vol] 88.3 fL Normal 81.0-100.0 [facility] Comment on above: Order Comment: Colle ct blood every day at 3 AM for the next 3 days. Performed By: #### M G, GFR, ANEU, ADIFF, CBC, CMP, A1C, LIPID #### [place] [address] Platelet 127 10 3/mcL Low 150-450 [facility] Comment on above: Order Comment: Colle ct blood every day at 3 AM for the next 3 days. Performed By: #### M G, GFR, ANEU, ADIFF, CBC, CMP, A1C, LIPID #### [place] [address] Platelet mean volume (Bld) [Entitic vol] 7.7 fL Normal 6.4-10.5 [facility] Comment on above: Order Comment: Colle ct blood every day at 3 AM for the next 3 days. Performed By: #### M G, GFR, ANEU, ADIFF, CBC, CMP, A1C, LIPID #### [place] [address] RBC 4.70 10 6/mcL Normal 4.50-6.00 [facility] Comment on above: Order Comment: Colle ct blood every day at 3 AM for the next 3 days. Performed By: #### M G, GFR, ANEU, ADIFF, CBC, CMP, A1C, LIPID #### [address] [address] WBC 4.6 10 3/mcL Normal 4.5-10.8 [facility] Comment on above: Order Comment: Colle ct blood every day at 3 AM for the next 3 days. Performed By: #### M G, GFR, ANEU, ADIFF, CBC, CMP, A1C, LIPID #### [address] [address] LABORATORYOrdered By: SYSTEM SYSTEM on 10-18-2024 Basophils [...] above: Interpretive Data: T esting performed on [employer] IT analyzer using enzymatic creatinine methodology. Electrolyte Balance 5.0 mEq/L Normal 4.0 - 15 .0 mEq/L ADM SS Eosinophils (Bld) [#/Vol] 0.1 103/mcL Normal 0.0 - 0.7 10^3/mcL Workflow SS Eosinophils/100 WBC (Bld) 1.7 % Normal 0.0 - 6.0 % Workflow SS Erythrocyte distribution width (RBC) [Ratio] 17.3 % High 11.5 - 15.5 % Workflow SS Estimated Glomerular Filtration Rate 112 [...] 115 mg/dL High 70 - 110 mg/dL AH ADM SS Hematocrit (Bld) [Volume fraction] 41.4 [...] 14.1 % High 2.0 - 13.0 % AH Workflow SS Neutrophils (Bld) [#/Vol] 3.9 103/mcL Normal 2.3 - 8.1 10^3/mcL AH Workflow SS Neutrophils/100 WBC (Bld) 64.6 % Normal 50.0 - 75.0 % AH Workflow SS Platelet mean volume (Bld) [Entitic vol] 7.9 fL Normal 6.4 - 10.5 fL AH Workflow SS Platelets (Bld) [#/Vol] 158 103/mcL Normal 150 - 450 10^3/mcL AH Workflow SS Potassium [Moles/Vol] 3.4 mmol/L Low 3.5 - 5.0 mEq/L AH ADM SS RBC (Bld) [#/Vol] 4.68 106/mcL Normal 4.50 - 6.0 0 10^6/mcL AH Workflow SS Sodium [Moles/Vol] 137 mmol/L Normal 136 - 145 mEq/L ADM SS Urea nitrogen [Mass/Vol] 6.0 mg/dL Low 8.0 - 22.0 mg/dL ADM SS Urea nitrogen/Creatinine [Mass ratio] 9.0 ratio Low 10.0 - 22.0 ratio AH ADM SS WBC (Bld) [#/Vol] 6.1 103/mcL Normal 4.5 - 10.8 10^3/mcL Workflow SS .Auto Diffon 10-17-2024 Basophil, Absolute 0.0 10 3/mcL Normal 0.0-0.3 [facility] Comment on above: Performed By: #### M G, GFR, ANEU, ADIFF, CBC, CMP, A1C, LIPID #### [address] [address] Basophils/100 WBC (Bld) 0.6 % Normal 0.0-2.5 [facility] Comment on above: Performed By: #### M G, GFR, ANEU, ADIFF, CBC, CMP, A1C, LIPID #### [address] [address] Eosinophil, Absolute 0.1 10 3/mcL Normal 0.0-0.7 [facility] Comment on above: Performed By: #### M G, GFR, ANEU, ADIFF, CBC, CMP, A1C, LIPID #### [address] [address] Eosinophils/100 WBC (Bld) 1.1 % Normal 0.0-6.0 [facility] Comment on above: Performed By: #### M G, GFR, ANEU, ADIFF, CBC, CMP, A1C, LIPID #### [address] [address] Lymphocyte, Absolute 0.9 10 3/mcL Normal 0.9-4.3 [facility] Comment on above: Performed By: #### M G, GFR, ANEU, ADIFF, CBC, CMP, A1C, LIPID #### [address] [address] Lymphocytes/100 WBC (Bld) 17.7 % Low 20.0-40.0 [facility] Comment on above: Performed By: #### M G, GFR, ANEU, ADIFF, CBC, CMP, A1C, LIPID #### [facility] [address] [place] [address] Monocyte, Absolute 0.6 10 3/mcL Normal 0.1-1.4 [facility] Comment on above: Performed By: #### M G, GFR, ANEU, ADIFF, CBC, CMP, A1C, LIPID #### [facility] [address] [place] [address] Monocytes/100 WBC (Bld) 11.1 % Normal 2.0-13.0 [facility] Comment on above: Performed By: #### M G, GFR, ANEU, ADIFF, CBC, CMP, A1C, LIPID #### [place] [id number] [place] [address] Neutrophils/100 WBC (Bld) 69.5 % Normal 50.0-75.0 [facility] Comment on above: Performed By: #### M G, GFR, ANEU, ADIFF, CBC, CMP, A1C, LIPID #### [place] [id number] [place] [address] .GFRon 10-17-2024 Estimated Glomerular Filtration Rate 113 ml/min/1.73sqm Normal [facility] Comment on above: Result [...] ANEU, ADIFF, CBC, CMP, A1C, LIPID #### [place] [id number] [place] [address] .NEUABSon 10-17-2024 Neutrophil, Absolute 3.7 10 3/mcL Normal 2.3-8.1 [facility] Comment on above: Performed By: #### M G, GFR, ANEU, ADIFF, CBC, CMP, A1C, LIPID #### [address] [address] BMPon 10-17-2024 BUN/Creatinine Ratio 7.7 ratio Low 10.0-22.0 [facility] Comment on above: Performed By: #### M G, GFR, ANEU, ADIFF, CBC, CMP, A1C, LIPID #### [place] [id number] Calcium [Mass/Vol] 8.5 mg/dL Low 8.7-10.4 [facility] Comment on above: Performed By: #### M G, GFR, ANEU, ADIFF, CBC, CMP, A1C, LIPID #### [place] [id number] Chloride [Moles/Vol] 101 mmol/L Normal 98-110 [facility] Comment on above: Performed By: #### M G, GFR, ANEU, ADIFF, CBC, CMP, A1C, LIPID #### [place] [id number] CO2 [Moles/Vol] 31 mmol/L Normal 22-32 [facility] Comment on above: Performed By: #### M G, GFR, ANEU, ADIFF, CBC, CMP, A1C, LIPID #### [place] [id number] Creatinine [Mass/Vol] 0.65 mg/dL Normal 0.60-1.40 [facility] Comment on above: Result Comment: Test ing performed on [employer] IT analyzer using enzymatic creatinine methodology. Performed By: #### M G, GFR, ANEU, ADIFF, CBC, CMP, A1C, LIPID #### [place] [id number] Electrolyte Balance 7.0 mEq/L Normal 4.0-15.0 [facility] Comment on above: Performed By: #### M G, GFR, ANEU, ADIFF, CBC, CMP, A1C, LIPID #### [place] [id number] Glucose [Mass/Vol] 120 mg/dL High 70-110 [facility] Comment on above: Performed By: #### M G, GFR, ANEU, ADIFF, CBC, CMP, A1C, LIPID #### [place] [id number] Potassium [Moles/Vol] 3.3 mmol/L Low 3.5-5.0 [facility] Comment on above: Performed By: #### M G, GFR, ANEU, ADIFF, CBC, CMP, A1C, LIPID #### [place] [id number] Sodium [Moles/Vol] 139 mmol/L Normal 136-145 [facility] Comment on above: Performed By: #### M G, GFR, ANEU, ADIFF, CBC, CMP, A1C, LIPID #### [place] [id number] Urea nitrogen [Mass/Vol] 5.0 mg/dL Low 8.0-22.0 [facility] Comment on above: Performed By: #### M G, GFR, ANEU, ADIFF, CBC, CMP, A1C, LIPID #### [place] [id number] CBCon 10-17-2024 Erythrocyte distribution width (RBC) [Ratio] 17.0 % High 11.5-15.5 [facility] Comment on above: Performed By: #### M G, GFR, ANEU, ADIFF, CBC, CMP, A1C, LIPID #### [place] [id number] Hematocrit (Bld) [Volume fraction] 40.3 % Normal 40.0-52.0 [facility] Comment on above: Performed By: #### M G, GFR, ANEU, ADIFF, CBC, CMP, A1C, LIPID #### [place] [id number] Hgb 13.2 G/dL Normal 13.0-17.5 [facility] Comment on above: Performed By: #### M G, GFR, ANEU, ADIFF, CBC, CMP, A1C, LIPID #### [place] [address] MCH (RBC) [Entitic mass] 28.6 pg Normal 27.0-33.0 [facility] Comment on above: Performed By: #### M G, GFR, ANEU, ADIFF, CBC, CMP, A1C, LIPID #### [place] [address] MCHC 32.6 G/dL Normal 32.0-36.0 [facility] Comment on above: Performed By: #### M G, GFR, ANEU, ADIFF, CBC, CMP, A1C, LIPID #### [place] [address] MCV (RBC) [Entitic vol] 87.6 fL Normal 81.0-100.0 [facility] Comment on above: Performed By: #### M G, GFR, ANEU, ADIFF, CBC, CMP, A1C, LIPID #### [place] [address] Platelet 132 10 3/mcL Low 150-450 [facility] Comment on above: Performed By: #### M G, GFR, ANEU, ADIFF, CBC, CMP, A1C, LIPID #### [place] [address] Platelet mean volume (Bld) [Entitic vol] 7.8 fL Normal 6.4-10.5 [facility] Comment on above: Performed By: #### M G, GFR, ANEU, ADIFF, CBC, CMP, A1C, LIPID #### [place] [address] RBC 4.60 10 6/mcL Normal 4.50-6.00 [facility] Comment on above: Performed By: #### M G, GFR, ANEU, ADIFF, CBC, CMP, A1C, LIPID #### [place] [address] WBC 5.4 10 3/mcL Normal 4.5-10.8 [facility] Comment on above: Performed By: #### M G, GFR, ANEU, ADIFF, CBC, CMP, A1C, LIPID #### [place] [address] CT ANKLE W/O CONTRAST RIGHTo n 10-17-2024 [...] spanning external fixator, multiplanar 10/17. transfer from [facility]. for right ankle fracture with dislocation. [...] 10/17/2024 1:17:29 PM Ordering Provider: TARA MISHRA [facility] MAIN LABORATORYOrdered By: SYSTEM SYSTEM on 10-17-2024 PT Coag (PPP) [Time] 13.7 s Normal 9.0 - 1 4.4 seconds AH [facility] SS Comment on above: Interpretive Data: E ffective 12/11/07, Protime results may be affected by some antibiotics (i.e. Ciprofloxacin, Azithromycin, Bactrim) which may potentiate the action of oral anticoagulants, with further increases in Protime/INR. PT International Ratio 1.2 ratio Invalid Interpretation Code SILVIA [facility] SS Comment on above: Interpretive Data: Riley linn [employer] (CHEST, 1991, 102:312S-25S) recommended therapeutic range for oral anticoagulant therapy is: LOW RISK: Prophylaxis of venous thrombosis INR: 2.0-3.0 Treatment of pulmonary embolism 2.0-3.0 Prevention of systemic embolism 2.0-3.0 HIGH RISK: Mechanical prosthetic valves 2.5-3.5 PROon 10-17-2024 INR Coag (PPP) [Relative time] 1.2 {INR} Normal [facility] Comment on above: Result Comment: [employer] (CHEST, 1991, 102:312S-25S) recommended therapeutic range for oral anticoagulant therapy is: LOW RISK: Prophylaxis of venous thrombosis INR: 2.0-3.0 Treatment of pulmonary embolism 2.0-3.0 Prevention of systemic embolism 2.0-3.0 HIGH RISK: Mechanical prosthetic valves 2.5-3.5 Performed By: #### M G, GFR, ANEU, ADIFF, CBC, CMP, A1C, LIPID #### [address] [address] PT Coag (PPP) [Time] 13.7 s Normal 9.0-14.4 [facility] Comment on above: Result Comment: Effe ctive 12/11/07, Protime results may be affected by some antibiotics (i.e. Ciprofloxacin, Azithromycin, Bactrim) which may potentiate the action of oral anticoagulants, with further increases in Protime/INR. Performed By: #### M G, GFR, ANEU, ADIFF, CBC, CMP, A1C, LIPID #### [address] [address] XR FLUORO 1-2 HRS TECH TIMEo n [...] Intraoperative fluoroscopic images. Please refer to the automatic casting machine operator's report for further information. I have personally reviewed the images of this examination and agree with the resident's findings and interpretation. Interpreted by: Corey Wahl Preliminary Report By: Nadya Hudson Electronically signed By Corey Wahl Dictated Date: 10/17/2024 1:42:02 PM Prelim Date: 10/17/2024 2:15:08 PM Sign Date: 10/17/2024 2:15:08 PM Ordering Provider: NANI Kate [facility] .Auto Diffon 10-16-2024 Basophil, Absolute 0.1 10 3/mcL Normal 0.0-0.3 [facility] Comment on above: Performed By: #### C LILIANA DAMICO MDW, ADIFF #### [address] [address] Basophils/100 WBC (Bld) 0.8 % Normal 0.0-2.5 [facility] Comment on above: Performed By: #### C LILIANA DAMICO MDW, ADIFF #### [address] [address] Eosinophil, Absolute 0.1 10 3/mcL Normal 0.0-0.7 [facility] Comment on above: Performed By: #### C LILIANA DAMICO MDW, ADIFF #### [address] [address] Eosinophils/100 WBC (Bld) 1.2 % Normal 0.0-6.0 [facility] Comment on above: Performed By: #### C LILIANA DAMICO MDW, ADIFF #### [address] [address] Lymphocyte, Absolute 1.4 10 3/mcL Normal 0.9-4.3 [facility] Comment on above: Performed By: #### LILIANA VILLA MDW, ADIFF #### [address] [address] Lymphocytes/100 WBC (Bld) 19.8 % Low 20.0-40.0 [facility] Comment on above: Performed By: #### C BC, LILIANA, W, ADIFF #### [address] [address] Monocyte, Absolute 0.7 10 3/mcL Normal 0.1-1.4 [facility] Comment on above: Performed By: #### C BC, ANEU, W, ADIFF #### [address] [address] Monocytes/100 WBC (Bld) 10.7 % Normal 2.0-13.0 [facility] Comment on above: Performed By: #### C BC, LILIANA, W, ADIFF #### [address] [address] Neutrophils/100 WBC (Bld) 67.5 % Normal 50.0-75.0 [facility] Comment on above: Performed By: #### C BC, ANEUMDW, ADIFF #### [address] [address] Basophil, Absolute 0.0 10 3/mcL Normal 0.0-0.3 [facility] Comment on above: Performed By: #### M G, GFR, ANEU, ADIFF, CBC, CMP, A1C, LIPID #### [address] [address] Basophils/100 WBC (Bld) 0.7 % Normal 0.0-2.5 [facility] Comment on above: Performed By: #### M G, GFR, ANEU, ADIFF, CBC, CMP, A1C, LIPID #### [address] [address] Eosinophil, Absolute 0.1 10 3/mcL Normal 0.0-0.7 [facility] Comment on above: Performed By: #### M G, GFR, ANEU, ADIFF, CBC, CMP, A1C, LIPID #### [address] [address] Eosinophils/100 WBC (Bld) 0.8 % Normal 0.0-6.0 [facility] Comment on above: Performed By: #### M G, GFR, ANEU, ADIFF, CBC, CMP, A1C, LIPID #### [address] [address] Lymphocyte, Absolute 1.1 10 3/mcL Normal 0.9-4.3 [facility] Comment on above: Performed By: #### M G, GFR, ANEU, ADIFF, CBC, CMP, A1C, LIPID #### [address] [address] Lymphocytes/100 WBC (Bld) 17.2 % Low 20.0-40.0 [facility] Comment on above: Performed By: #### M G, GFR, ANEU, ADIFF, CBC, CMP, A1C, LIPID #### [address] [address] Monocyte, Absolute 0.6 10 3/mcL Normal 0.1-1.4 [facility] Comment on above: Performed By: #### M G, GFR, ANEU, ADIFF, CBC, CMP, A1C, LIPID #### [address] [address] Monocytes/100 WBC (Bld) 8.7 % Normal 2.0-13.0 [facility] Comment on above: Performed By: #### M G, GFR, ANEU, ADIFF, CBC, CMP, A1C, LIPID #### [address] [address] Neutrophils/100 WBC (Bld) 72.6 % Normal 50.0-75.0 [facility] Comment on above: Performed By: #### M G, GFR, ANEU, ADIFF, CBC, CMP, A1C, LIPID #### [address] [address] .GFRon 10-16-2024 Estimated Glomerular Filtration Rate 110 ml/min/1.73sqm Normal [facility] Comment on above: Result [...] ANEU, ADIFF, CBC, CMP, A1C, LIPID #### [place] [address] Estimated Glomerular Filtration Rate 111 ml/min/1.73sqm Normal [facility] Comment on above: Result [...] ANEU, ADIFF, CBC, CMP, A1C, LIPID #### [place] [id number] .MDWon 10-16-2024 Monocyte Distribution Width 19.45 Normal 0.00-20.00 [facility] Comment on above: Result Comment: For ED adult patients suspected of sepsis, MDW<=20.0 does not rule out sepsis or risk of sepsis Performed By: #### M G, GFR, ANEU, ADIFF, CBC, CMP, A1C, LIPID #### [place] [address] Monocyte Distribution Width 17.52 Normal 0.00-20.00 [facility] Comment on above: Result Comment: For ED adult patients suspected of sepsis, MDW<=20.0 does not rule out sepsis or risk of sepsis Performed By: #### M G, GFR, ANEU, ADIFF, CBC, CMP, A1C, LIPID #### [place] [id number] .NEUABSon 05-21-2025 Neutrophil, Absolute 4.7 10 3/mcL Normal 2.3-8.1 [facility] Comment on above: Performed By: #### M G, GFR, ANEU, ADIFF, CBC, CMP, A1C, LIPID #### [place] [id number] [address] [place], [place] [id number] Neutrophil, Absolute 4.7 10 3/mcL Normal 2.3-8.1 [facility] Comment on above: Performed By: #### M G, GFR, ANEU, ADIFF, CBC, CMP, A1C, LIPID #### [place] [id number] ABO/Rh (Gel)on 10-16-2024 ABO/Rh Interp Positive Invalid Interpretation Code [facility] Comment on above: Performed By: #### M G, GFR, ANEU, ADIFF, CBC, CMP, A1C, LIPID #### [place] [id number] ABS (Gel)on 10-16-2024 ABSC Interp (Gel) Negative Normal [facility] Comment on above: Performed By: #### M G, GFR, ANEU, ADIFF, CBC, CMP, A1C, LIPID #### [place] [id number] Stefanie 10-16-2024 Ethanol Level <10.0 Normal [facility] Comment on above: Performed By: #### M G, GFR, ANEU, ADIFF, CBC, CMP, A1C, LIPID #### [place] [id number] ANKLE COMPLETE RTon 10-17-19 25 ANKLE COMPLETE RT [place] [address] Patient: SOCORRO KELLEY Phone#: : [phone] Age: 54 Gender: M Pt. Type: ER Account: [id number] Location: [facility] Ordering: JAKE MAXWELL Exam Date: 10/16/2024/13:23 Family Phys: Charge Code: [id number] Physician: [place] Order #: [id number] Dose#: PROCEDURE: X-RAY ANKLE COMPLETE RT MIN [...] Bagley MD on 10/16/2024 at 14:15 Normal [facility] BMPon 10-16-2024 BUN/Creatinine Ratio 15.9 ratio Normal 10.0-22.0 [facility] Comment on above: Performed By: #### M G, GFR, ANEU, ADIFF, CBC, CMP, A1C, LIPID #### [address] [id number] Calcium [Mass/Vol] 9.4 mg/dL Normal 8.7-10.4 [facility] Comment on above: Performed By: #### M G, GFR, ANEU, ADIFF, CBC, CMP, A1C, LIPID #### [place] [id number] [address] [place] [id number] Chloride [Moles/Vol] 103 mmol/L Normal 98-110 [facility] Comment on above: Performed By: #### M G, GFR, ANEU, ADIFF, CBC, CMP, A1C, LIPID #### [address] [address] CO2 [Moles/Vol] 32 mmol/L Normal 22-32 [facility] Comment on above: Performed By: #### M G, GFR, ANEU, ADIFF, CBC, CMP, A1C, LIPID #### [address] [address] Creatinine [Mass/Vol] 0.69 mg/dL Normal 0.60-1.40 [facility] [facility] Comment on above: Result Comment: Test ing performed on [employer] IT analyzer using enzymatic creatinine methodology. Performed By: #### M G, GFR, ANEU, ADIFF, CBC, CMP, A1C, LIPID #### [address] [address] Electrolyte Balance 5.0 mEq/L Normal 4.0-15.0 [facility] Comment on above: Performed By: #### M G, GFR, ANEU, ADIFF, CBC, CMP, A1C, LIPID #### [address] [address] Glucose [Mass/Vol] 94 mg/dL Normal 70-110 [facility] Comment on above: Performed By: #### M G, GFR, ANEU, ADIFF, CBC, CMP, A1C, LIPID #### [address] [address] Potassium [Moles/Vol] 3.6 mmol/L Normal 3.5-5.0 [facility] Comment on above: Performed By: #### M G, GFR, ANEU, ADIFF, CBC, CMP, A1C, LIPID #### [address] [address] Sodium [Moles/Vol] 140 mmol/L Normal 136-145 [facility] Comment on above: Performed By: #### M G, GFR, ANEU, ADIFF, CBC, CMP, A1C, LIPID #### [address] [address] Urea nitrogen [Mass/Vol] 11.0 mg/dL Normal 8.0-22.0 [facility] Comment on above: Performed By: #### M G, GFR, ANEU, ADIFF, CBC, CMP, A1C, LIPID #### [address] [address] CBCon 10-16-2024 Erythrocyte distribution width (RBC) [Ratio] 16.5 % High 11.5-15.5 [facility] Comment on above: Performed By: #### LILIANA VILLA MDW, ADIFF #### [place] [id number] Hematocrit (Bld) [Volume fraction] 45.2 % Normal 40.0-52.0 [facility] Comment on above: Performed By: #### C LILIANA DAMICO MDW, ADIFF #### [place] [id number] Hgb 14.8 G/dL Normal 13.0-17.5 [facility] Comment on above: Performed By: #### C LILIANA DAMICO MDW, ADIFF #### [place] [id number] MCH (RBC) [Entitic mass] 28.8 pg Normal 27.0-33.0 [facility] Comment on above: Performed By: #### C LILIANA DAMICO MDW, ADIFF #### [place] [id number] MCHC 32.8 G/dL Normal 32.0-36.0 [facility] Comment on above: Performed By: #### C LILIANA DAMICO MDW, ADIFF #### [place] [id number] MCV (RBC) [Entitic vol] 87.8 fL Normal 81.0-100.0 [facility] Comment on above: Performed By: #### C LILIANA DAMICO MDW, ADIFF #### [place] [id number] Platelet 172 10 3/mcL Normal 150-450 [facility] Comment on above: Performed By: #### C LILIANA DAMICO MDW, ADIFF #### [place] [phone] Platelet mean volume (Bld) [Entitic vol] 7.9 fL Normal 6.4-10.5 [facility] Comment on above: Performed By: #### LILIANA VILLA MDW, ADIFF #### [place] [id number] RBC 5.14 10 6/mcL Normal 4.50-6.00 [facility] Comment on above: Performed By: #### C MARGAUX, LILIANA, W, ADIFF #### [place] [address] WBC 6.9 10 3/mcL Normal 4.5-10.8 [facility] Comment on above: Performed By: #### C BC, LILIANA, W, ADIFF #### [place] [phone] Erythrocyte distribution width (RBC) [Ratio] 17.1 % High 11.5-15.5 [facility] Comment on above: Performed By: #### M G, GFR, ANEU, ADIFF, CBC, CMP, A1C, LIPID #### [place] [address] Hematocrit (Bld) [Volume fraction] 43.2 % Normal 40.0-52.0 [facility] Comment on above: Performed By: #### M G, GFR, ANEU, ADIFF, CBC, CMP, A1C, LIPID #### [place] [address] Hgb 14.3 G/dL Normal 13.0-17.5 [facility] Comment on above: Performed By: #### M G, GFR, ANEU, ADIFF, CBC, CMP, A1C, LIPID #### [place] [id number] MCH (RBC) [Entitic mass] 28.9 pg Normal 27.0-33.0 [facility] Comment on above: Performed By: #### M G, GFR, ANEU, ADIFF, CBC, CMP, A1C, LIPID #### [place] [id number] MCHC 33.0 G/dL Normal 32.0-36.0 [facility] Comment on above: Performed By: #### M G, GFR, ANEU, ADIFF, CBC, CMP, A1C, LIPID #### [place] [address] MCV (RBC) [Entitic vol] 87.4 fL Normal 81.0-100.0 [facility] Comment on above: Performed By: #### M G, GFR, ANEU, ADIFF, CBC, CMP, A1C, LIPID #### [address] [address] Platelet 152 10 3/mcL Normal 150-450 [facility] Comment on above: Performed By: #### M G, GFR, ANEU, ADIFF, CBC, CMP, A1C, LIPID #### [address] [address] Platelet mean volume (Bld) [Entitic vol] 7.7 fL Normal 6.4-10.5 [facility] Comment on above: Performed By: #### M G, GFR, ANEU, ADIFF, CBC, CMP, A1C, LIPID #### [place] [address] RBC 4.94 10 6/mcL Normal 4.50-6.00 [facility] Comment on above: Performed By: #### M G, GFR, ANEU, ADIFF, CBC, CMP, A1C, LIPID #### [place] [id number] WBC 6.5 10 3/mcL Normal 4.5-10.8 [facility] Comment on above: Performed By: #### M G, GFR, ANEU, ADIFF, CBC, CMP, A1C, LIPID #### [place] [address] CBC + DIFFon 10-16-2024 Baso # 0.01 x10EE3/UL Normal 0.00 - 0.10 [facility] Comment on above: Performed By: #### 2 81206 #### [facility],[address] [place] [address] Basophils/100 WBC (Bld) 0.2 % Normal 0.0 - 2.0 [facility] Comment on above: Performed By: #### 2 73608 #### [facility],[address] [place] [address] CBC + DIFF Normal [facility] Comment on above: Result Comment: CBC- COMPLETE BLOOD COUNT Performed By: #### 2 65318 #### [facility],[address] [place] [address] EO # 0.04 x10EE3/UL Normal 0.00 - 0.50 [facility] Comment on above: Performed By: #### 2 55983 #### [facility],[address] [place] [address] Eosinophils/100 WBC (Bld) 0.7 % Normal 0.0 - 7.0 [facility] Comment on above: Performed By: #### 2 58823 #### [facility],[address] [place], [place] [id number] Erythrocyte distribution width (RBC) [Ratio] 15.2 % Normal 12.0 - 15.6 [facility] Comment on above: Performed By: #### 2 49718 #### [facility],[address] [place] [address] Hematocrit (Bld) [Volume fraction] 44.1 % Normal 40.0 - 52.0 [facility] Comment on above: Performed By: #### 2 32265 #### [facility],[address] [place] [address] Hemoglobin (Bld) [Mass/Vol] 15.4 g/dL Normal 13.0 - 17.5 [facility] Comment on above: Performed By: #### 2 50177 #### [facility],[address] [place] [address] Lymph # 0.96 x10EE3/UL Normal 0.80 - 2.80 [facility] Comment on above: Performed By: #### 2 69360 #### [address] [address] Lymphocytes/100 WBC (Bld) 17.1 % Low 20.0 - 45.0 [facility] Comment on above: Performed By: #### 2 41266 #### [address] [address] MANUAL DIFF N/A Normal [facility] Comment on above: Performed By: #### 2 44407 #### [facility],[address] [place] [address] MCH (RBC) [Entitic mass] 31 pg Normal 27 - 33 [facility] Comment on above: Performed By: #### 2 34894 #### [facility],[address] [place] [address] MCHC 35 X10 3 Normal 32 - 36 [facility] Comment on above: Performed By: #### 2 45686 #### [facility],[address] [place], [place] [phone] MCV (RBC) [Entitic vol] 88 fL Normal 81 - 98 [facility] Comment on above: Performed By: #### 2 22428 #### [facility],[address] [place] [address] [place] # 0.47 x10EE3/UL Normal 0.20 - 1.00 [facility] Comment on above: Performed By: #### 2 28664 #### [facility],[address] [place] [address] MONOS % 8.4 % Normal 0.0 - 10.0 [facility] Comment on above: Performed By: #### 2 10839 #### [facility],[address] [place] [address] Morphology Rocky (Bld) [Interp] N/A Normal [facility] Comment on above: Performed By: #### 2 78052 #### [facility],[address] [place] [address] Neut # 4.12 x10EE3/UL Normal 1.50 - 7.10 [facility] Comment on above: Performed By: #### 2 89865 #### [facility],[address] [place], [place] [address] Neutrophils/100 WBC (Bld) 73.6 % Normal 46.0 - 76.0 [facility] Comment on above: Performed By: #### 2 96996 #### [facility],[address] [place] [address] PLATELET 148 x10EE3/UL Low 150 - 450 [facility] Comment on above: Performed By: #### 2 09676 #### [facility],[address] [place] [address] Platelet mean volume (Bld) [Entitic vol] 8.1 fL Normal 6.4 - 10.5 [facility] Comment on above: Result Comment: AUTO MATED DIFFERENTIAL Performed By: #### 2 00528 #### [facility],[address] [place] [address] RBC 5.02 x 10EE6/UL Normal 4.50 - 6.00 [facility] Comment on above: Performed By: #### 2 61467 #### [facility],[address] [place] [address] WBC 5.6 x 10EE3/UL Normal 4.5 - 10.8 [facility] Comment on above: Performed By: #### 2 57943 #### [facility],[address] [place] [address] CMPon 10-16-2024 Albumin Level 3.6 G/dL Normal 3.2-4.8 [facility] Comment on above: Performed By: #### M G, GFR, ANEU, ADIFF, CBC, CMP, A1C, LIPID #### [address] [address] Albumin/Globulin [Mass ratio] 1.0 {ratio} Normal 0.9-1.6 [facility] Comment on above: Performed By: #### M G, GFR, ANEU, ADIFF, CBC, CMP, A1C, LIPID #### [address] [address] ALP [Catalytic activity/Vol] 70 U/L Normal 38-126 [facility] Comment on above: Performed By: #### M G, GFR, ANEU, ADIFF, CBC, CMP, A1C, LIPID #### [address] [address] ALT [Catalytic activity/Vol] 12 U/L Normal 12-55 [facility] Comment on above: Performed By: #### M G, GFR, ANEU, ADIFF, CBC, CMP, A1C, LIPID #### [address] [address] AST [Catalytic activity/Vol] 17 U/L Normal 8-34 [facility] Comment on above: Performed By: #### M G, GFR, ANEU, ADIFF, CBC, CMP, A1C, LIPID #### [address] [address] Bili Total 0.60 mg/dL Normal 0.20-1.20 [facility] Comment on above: Result Comment: Use of this assay is not recommended for patients undergoing treatment with eltrombopag due to the potential for falsely elevated results. Performed By: #### M G, GFR, ANEU, ADIFF, CBC, CMP, A1C, LIPID #### [place] [id number] BUN/Creatinine Ratio 14.1 ratio Normal 10.0-22.0 [facility] Comment on above: Performed By: #### M G, GFR, ANEU, ADIFF, CBC, CMP, A1C, LIPID #### [address] [address] Calcium [Mass/Vol] 9.0 mg/dL Normal 8.7-10.4 [facility] Comment on above: Performed By: #### M G, GFR, ANEU, ADIFF, CBC, CMP, A1C, LIPID #### [address] [address] Chloride [Moles/Vol] 102 mmol/L Normal 98-110 [facility] Comment on above: Performed By: #### M G, GFR, ANEU, ADIFF, CBC, CMP, A1C, LIPID #### [address] [address] CO2 [Moles/Vol] 33 mmol/L High 22-32 [facility] Comment on above: Performed By: #### M G, GFR, ANEU, ADIFF, CBC, CMP, A1C, LIPID #### [address] [address] Creatinine [Mass/Vol] 0.71 mg/dL Normal 0.60-1.40 [facility] Comment on above: Result Comment: Test ing performed on [employer] IT analyzer using enzymatic creatinine methodology. Performed By: #### M G, GFR, ANEU, ADIFF, CBC, CMP, A1C, LIPID #### [place] [id number] Electrolyte Balance 4.0 mEq/L Normal 4.0-15.0 [facility] Comment on above: Performed By: #### M G, GFR, ANEU, ADIFF, CBC, CMP, A1C, LIPID #### [place] [id number] Globulin 3.5 G/dL Normal 2.5-4.2 [facility] Comment on above: Performed By: #### M G, GFR, ANEU, ADIFF, CBC, CMP, A1C, LIPID #### [place] [id number] Glucose [Mass/Vol] 109 mg/dL Normal 70-110 [facility] Comment on above: Performed By: #### M G, GFR, ANEU, ADIFF, CBC, CMP, A1C, LIPID #### [address] [address] Potassium [Moles/Vol] 3.7 mmol/L Normal 3.5-5.0 [facility] Comment on above: Performed By: #### M G, GFR, ANEU, ADIFF, CBC, CMP, A1C, LIPID #### [address] [address] Sodium [Moles/Vol] 139 mmol/L Normal 136-145 [facility] Comment on above: Performed By: #### M G, GFR, ANEU, ADIFF, CBC, CMP, A1C, LIPID #### [place] [id number] Total Protein 7.1 G/dL Normal 5.7-8.2 [facility] Comment on above: Performed By: #### M G, GFR, ANEU, ADIFF, CBC, CMP, A1C, LIPID #### [facility] [address] [place] [address] Urea nitrogen [Mass/Vol] 10.0 mg/dL Normal 8.0-22.0 [facility] Comment on above: Performed By: #### M G, GFR, ANEU, ADIFF, CBC, CMP, A1C, LIPID #### [facility] [address] [place] [address] CMP with eGFRon 10-16-2024 AGE 54 years Normal [facility] Comment on above: Performed By: #### 2 37495 ####[facility],[address] [place] [address] Albumin [Mass/Vol] 3.4 g/dL Normal 3.4 - 5.0 [facility] Comment on above: Performed By: #### 2 32742 ####[facility],[address] [place] [address] Albumin/Globulin [Mass ratio] 0.9 {ratio} Normal 0.9 - 1.6 [facility] Comment on above: Performed By: #### 2 56438 ####[facility],[address] [place] [address] ALK PHOS 76 U/L Normal 46 - 116 [facility] Comment on above: Performed By: #### 2 41071 ####[facility],[address] [place] [address] ALT [Catalytic activity/Vol] 17 U/L Normal 16 - 63 [facility] Comment on above: Performed By: #### 2 56622 ####[facility],[address] [place] [address] Anion gap [Moles/Vol] 11 mmol/L Normal 10 - 20 [facility] Comment on above: Performed By: #### 2 56313 ####[facility],[address] [place] [address] AST [Catalytic activity/Vol] 17 U/L Normal 15 - 37 [facility] Comment on above: Performed By: #### 2 80403 ####[facility],[address] [place] [address] B/C RATIO 13 ratio Normal 0 - 30 [facility] Comment on above: Performed By: #### 2 63555 ####[facility],[address] [place] [address] Bilirubin [Mass/Vol] 0.5 mg/dL Normal 0.2 - 1.0 [facility] Comment on above: Performed By: #### 2 86581 ####[facility],[address] [place] [address] Calcium [Mass/Vol] 8.9 mg/dL Normal 8.5 - 10.1 [facility] Comment on above: Performed By: #### 2 39084 ####[facility],[address] [place] [address] Chloride [Moles/Vol] 101 mmol/L Normal 98 - 107 [facility] Comment on above: Performed By: #### 2 53659 ####[facility],[address] [place] [address] CMP with eGFR Normal [facility] Comment on above: Result Comment: COMP REHENSIVE METABOLIC PANEL Performed By: #### 2 30315 ####[facility],[address] [place] [address] CO2 [Moles/Vol] 30.7 mmol/L Normal 21.0 - 32.0 [facility] Comment on above: Performed By: #### 2 56755 ####[facility],[address] [place] [address] Creatinine [Mass/Vol] 0.96 mg/dL Normal 0.70 - 1.30 [facility] Comment on above: Performed By: #### 2 70847 ####[facility],[address] [place] [address] GFR/1.73 sq M.predicted among non-blacks MDRD (S/P/Bld) [Vol rate/Area] mL/min/{1.73_m2} Normal 60 - 999 [facility] Comment on above: Performed By: #### 2 23039 ####[facility],[address] [place] [address] Result Comment: ACCO RDING TO THE NATIONAL KIDNEY DISEASE EDUCATION PROGRAM(NKDE), A NORMAL eGFR IS A VALUE GREATER THAN OR EQUAL TO 60 ML/MIN/1.73 SQ METERS. CHRONIC KIDNEY DISEASE: <60mL/MIN/1.73 SQ METERS KIDNEY FAILURE: <15mL/MIN/1.73 SQ METERS THIS TEST SHOULD ONLY BE USED FOR PATIENTS 18 YEARS OF AGE AND OLDER. Globulin (S) [Mass/Vol] 3.7 g/dL Normal 1.5 - 3.8 [facility] Comment on above: Performed By: #### 2 77464 ####[address] [address] Glucose [Mass/Vol] 94 mg/dL Normal 74 - 106 [facility] Comment on above: Performed By: #### 2 71555 ####[facility],[address] [place] [address] Potassium [Moles/Vol] 3.6 mmol/L Normal 3.5 - 5.1 [facility] Comment on above: Performed By: #### 2 20350 ####[facility],[address] [place] [address] Protein [Mass/Vol] 7.1 g/dL Normal 6.4 - 8.2 [facility] Comment on above: Performed By: #### 2 16737 ####[facility],[address] [place] [address] Sodium [Moles/Vol] 139 mmol/L Normal 136 - 145 [facility] Comment on above: Performed By: #### 2 85337 ####[facility],[address] [place] [address] Urea nitrogen [Mass/Vol] 12 mg/dL Normal 7 - 18 [facility] Comment on above: Performed By: #### 2 82844 ####[facility],[address] [place] [address] ED MED ADMINISTRATION DETAIL on 10-16-2024 ED MED ADMINISTRATION DETAIL [employer] Medication Administration Record [address] [address] [id number] 10/16/2024 Patient: SOCORRO KELLEY Sex: Male : 1970 Age: 54y MEASUREMENTS: Wt: 140.2 kg, Ht/Wilson: 69.0 in, BMI: 45.63 ALLERGIES: Zprgvzb-TEW-AnI Reductase Inhibitors Medication Ordered Medication Administration Date/Time HYDROmorphone 13:11 10/16 HYDROmorphone (Dilaudid) IVP 0.5 mg given via Given (Dilaudid) IVP 0.5 Site# 1. Allergies verified and confirmed 5 rights. IV patency 13:11 10/16/2024 mg (NOW x1, HIGH established. IV site [...] Destiney Chu R.N. 1 of 1 Normal [facility] ED NURSES CLINICAL NOTEon ED NURSES CLINICAL NOTE Nurse Narrative Nurse Clinical Narrative [address] [address] [id number] 10/16/2024 12:34:00 Patient: SOCORRO KELLEY Sex: Male : 1970 Age: 54y Disposition: Transfer to [facility] Disposition Decision Time: 14:27 10/16/2024 Departure [...] had swelling, redness and trouble walking. Treatment [employer]: Ice. SEPSIS SCREEN: NEGATIVE. SIRS criteria negative. No possible sources of infection. -- 12:47 10/16/24 EKTAT Silvina Maguire R.N. 12:47 10/16/24. BP: 171/95 MAP: 120. HR: 93. RR: 18. O2 saturation: 93% Temperature: 98.9 F. Pain level now 03/07. -- 12:47 10/16/24 EKTAT Silvina Maguire R.N. Measurements: 12:45 10/16/24 Wt: 140.2 kg, Ht/Wilson: 69.0 in, BMI: 45.63 -- 12:45 10/16/24 T Silvina Maguire R.N. 1 of 5 Nurse Narrative Medications: omeprazole 40 mg capsule,delayed release -- 12:51 10/16/24 EKTA Silvina Maguire R.N. dofetilide 250 mcg capsule -- 12:51 10/16/24 EKTAT Silvina Maguire R.N. albuterol sulfate 2.5 mg/3 mL (0.083 %) solution for nebulization -- 12:51 10/16/24 EKTA Silvina Maguire R.N. pravastatin 40 mg tablet -- 12:51 10/16/24 EKTA Silvina Maguire R.N. metoprolol succinate ER 100 mg tablet,extended release 24 hr -- 12:51 10/16/24 EKTA Silvina Maguire R.N. spironolactone 25 mg tablet -- 12:10/16/24 EKTA Silvina Maguire R.N. trazodone 100 mg tablet -- 12:51 10/16/24 EKTA Silvina Maguire R.N. tizanidine 2 mg tablet -- 12:51 10/16/24 EKTAT Silvina Maguire R.N. hydroxyzine pamoate 25 mg capsule -- 12:51 10/16/24 T Silvina Maguire R.N. furosemide 20 mg tablet -- 12:51 10/16/24 T Silvina Maguire R.N. duloxetine 20 mg capsule,delayed release -- 12:51 10/16/24 T Silvina Maguire R.N. budesonide-formoterol HFA 80 mcg-4.5 mcg/actuation aerosol inhaler -- 12:51 10/16/24 EDT Silvina Maguire R.N. True Metrix Glucose Test Strip -- 12:51 10/16/24 T Silvina Maguire R.N. Xarelto 20 mg tablet -- 12:51 10/16/24 T Silvina Maguire R.N. potassium chloride ER 20 mEq tablet,extended release -- 12:51 10/16/24 T Silvina Maguire R.N. TRUEplus Lancets 28 gauge -- 12:51 10/16/24 T Silvina Maguire R.N. Trulicity 1.5 mg/0.5 mL subcutaneous pen injector -- 12:51 10/16/24 EKTAT Silvina Maguire R.N. Allergies: Qrgfzht-PHW-PcY Reductase Inhibitors -- 12:40 10/16/24 EKTAT Silvina Maguire R.N. Problems: Atrial Fibrillation -- 12:40 10/16/24 EKTAT Silvina Maguire R.N. Congestive Heart Failure -- 12:40 10/16/24 EKTAT Silvina Maguire R.N. Hypertension -- 12:41 10/16/24 EKTAT Silvina Maguire R.N. Glaucoma -- 12:41 10/16/24 EKTAT Silvina Maguire R.N. Surgeries: lump out of arm -- 12:41 10/16/24 EKTAT Silvina Maguire R.N. History 2 of 5 [...] 98.9 F. Pain level now 10/10. -- 14:12 10/16/24 EDT Destiney Chu R.N. [...] 10/16/24. E (more content not included)... Normal [facility] ED ORDER SHEET (CPOE ONLY)on 10-16-2024 ED ORDER SHEET (CPOE ONLY) Order Sheet Order Sheet [facility] [address] [place] [address] [id number] 10/16/2024 [id number] Sex: Male : 1970 Age: 54y MEASUREMENTS: Wt: 140.2 kg, Ht/Wilson: 69.0 in, BMI: 45.63 ALLERGIES: Elpcyxp-RSM-VpV Reductase Inhibitors MEDICATION/IV/DRIP/FLU ID ORDERS Order Description Priority Entered Acknowledged Completed HYDROmorphone (Dilaudid) 12:56 10/16/2024 12:58 13:14 IVP0.5 mg (NOW x1, HIGH Jake Maxwell M.D. 10/16/2024 10/16/2024 ALERT MEDICATION) Destiney Blackman R.N. [facility] LAB ORDERS Order Description Priority Entered Acknowledged Collected Completed PT with INR Stat Stat 12:51 10/16/2024 12:58 10/16/2024 14:19 10/16/2024 Reymundo Carvajal Debra Schrock, R.N. RE[place]N. CBC w Diff Stat Stat 14:00 10/16/2024 14:18 10/16/2024 14:19 10/16/2024 Reymundo Carvajal Debra Schrock, R.N. R.N. CMP Stat Stat 14:00 10/16/2024 14:18 10/16/2024 14:19 10/16/2024 Reymundo Carvajal Debra Schrock, R.N. [place]N. 1 of 3 Order Sheet Lactate, Serum Stat Stat 14:00 10/16/2024 14:18 10/16/2024 14:19 10/16/2024 Reymundo Carvajal Debra Schrock, R.N. [facility] BNP Stat Stat 14:00 10/16/2024 14:10 10/16/2024 14:19 10/16/2024 Reymundo Carvajal Debra Schrock, R.N. [place] DIAGNOSTIC STUDY ORDERS Order Description Priority Entered Acknowledged Completed Foot R Complete Stat Stat 12:51 10/16/2024 12:58 14:19 Jake Maxwell M.D. 10/16/2024 10/16/2024 Destiney Blackman R.N. [place] Reason for Study: Trauma/Injury Tib/Fib R 2V [...] 10/16/2024 Reymundo Carvajal Debra Schrock, R.N. R.N. [Electronically signed by Jake Maxwell M.D. (10/16/2024 15:16 EDT)] 2 of 3 Order Sheet [Electronically signed by Jake Maxwell M.D. (10/16/2024 15:18 EDT)] 3 of 3 Normal [facility] ED PHYSICIAN CLINICAL REPORT on 10-16-2024 ED PHYSICIAN CLINICAL REPORT Narrative Physician Clinical Narrative [address] [address] [id number] 10/16/2024 12:34:00 Patient: SOCORRO KELLEY Sex: Male : 1970 Age: 54y Disposition: Transfer to [facility] Disposition Decision Time: 14:27 10/16/2024 Measurements [...] pen injector Xarelto 20 mg tablet Allergies: Opptnax-ENB-MzA Reductase Inhibitors SOCIAL HISTORY Does not use [...] 148 x10/UL (more content not included)... Normal [facility] ED SUPER BILLon 10-16-2024 ED [facility] BILL [address] [place] [address] [id number] 10/16/2024 Patient: SOCORRO KELLEY Sex: Male : 1970 Age: 54y Facility Professional Category Item Description Code Code Quantity Fee Total Nurse/E/M EMERGENCY 747522 1 $0.00 $0.00 DEPT VISIT HIGH SEVERITYFUNCJ (98001-58) Nurse/IV/IM/Infusions IVP initial (17274) [id number] 1 $0.00 $0.00 Grand $0.00 Total Providers Reymundo Carvajal M.D. Chief Complaint Injury to right foot and right ankle. Principal Diagnosis Closed displaced, severely angulated right bimalleolar fracture. 1 of 2 [facility] ICD-10 Codes S82.841A: Displaced bimalleolar fracture of right lower leg, initial encounter for closed fracture 2 of 2 Normal [facility] ED VISIT SUMMARYon 5 ED VISIT SUMMARY Visit Overview Visit Overview [address] [address] [id number] 10/16/2024 Patient: SOCORRO KELLEY Sex: Male : 1970 Age: 54y 10/16/2024 07:42 PM EDT ED Arrival:12:34 10/16/2024 EDT Status: Recent Travel:no Language:eng Adv Directive:No Isolation Status: Ethnicity:N Fall Risk:risk Infectious Disease Exposure:no Measurements:5'9 / 175.3 Self-Harm Status:risk Sepsis Screen:negative cm 309.0 lb / 140.2 kg Chief Complaint:RIGHT LOWER EXTREMITY PAIN, RIGHT LOWER EXTREMITY REDNESS, and RIGHT LOWER EXTREMITY SWELLING ALLERGIES Raqzvsy-BNU-CnY Reductase Inhibitors HOME MEDICATIONS albuterol sulfate 2.5 [...] Site #1 right AC, 20g. Saline lock. Visit Overview INTAKE OUTPUT REASSESMENT (most recent) [...] 12:47 10/16/24 GCS 14:41 10/16/24 RTS 12:47 05/21/25 RTS 14:41 10/16/24 PROCEDURES NURSING INTERVENTIONS LABS / STUDIES LABS / STUDIES ORDERED Ankle R Complete BNP CBC w Diff CMP Foot R Complete Lactate, Serum PT with INR Tib/Fib R 2V 3 of 4 Visit Overview CLINICAL IMPRESSION CLOSED DISPLACED, SEVERELY ANGULATED RIGHT BIMALLEOLAR FRACTURE 4 of 4 Normal [facility] ED VITALS FLOW SHEETon 10-16 ED VITALS FLOW SHEET Vitals Vital Sign Flow Sheet [place] [id number] [facility] [address] [phone] 10/16/2024 Patient: SOCORRO KELLEY Sex: Male : [...] 98.9 F 10 2 of 2 Normal [facility] FOOT COMPLETE RTon FOOT COMPLETE RT [address] [address] Patient: SOCORRO KELLEY Phone#: : 1970 Age: 54 Gender: M Pt. Type: ER Account: [id number] Location: 052 Ordering: JAKE MAXWELL Exam Date: 10/16/2024/13:00 Family Phys: Charge Code: 369442 Physician: [place] Order #: [id number] Dose#: PROCEDURE: X-RAY FOOT RT COMPLETE MIN [...] Bagley MD on 10/16/2024 at 14:23 Normal [facility] LABORATORYOrdered By: SYSTEM SYSTEM on 10-16-2024 Monocyte distribution width Auto (Bld) [Entitic vol] 19.45 1 Normal 0.00 - 20.00 Workflow SS Comment on above: Result Comment: For ED adult patients suspected of sepsis, MDW<=20.0 does not rule out sepsis or risk of sepsis Albumin BCP dye [Mass/Vol] 3.6 G/dL Normal 3.2 - 4.8 G/dL AH ADM SS Albumin/Globulin [Mass ratio] 1.0 {ratio} Normal 0.9 - 1.6 ratio AH ADM SS ALP [Catalytic activity/Vol] 70 U/L Normal 38 - 126 U/L AH [...] SS Ethanol [Mass/Vol] mg/dL Invalid Interpretation Code AH ADM SS Monocyte distribution width Auto (Bld) [...] Ql Negative ABSC (10/16/24 10:08 PM) Normal AH BB Auto SS LACTATEon 10-16-2024 Lactate [Moles/Vol] 1.1 mmol/L Normal 0.4 - 2.0 [facility] Comment on above: Performed By: #### 2 [id number] #### [facility],[address] [place] [address] NT-proBNPon 10-16-2024 Natriuretic peptide B (Bld) [Mass/Vol] 291 pg/mL High 0 - 125 [facility] Comment on above: Performed By: #### 2 [id number] #### [facility],[address] [place], [place] [id number] PROTHROMBIN TIME AND INRon 0 10-16-2024 INR Coag (PPP) [Relative time] 1.4 {INR} High 0.8 - 1.2 [facility] Comment on above: Result Comment: T HE [...] MECHANICAL HEART VALVES Performed By: #### 2 [id number] ####[facility],[address] [place] [address] PROTHROMBIN TIME AND INR Normal [facility] Comment on above: Result Comment: PROT HROMBIN TIME AND INR Performed By: #### 2 [id number] ####[facility],[address] [place] [address] PT-COUMADIN 15.9 sec High 9.3 - 14.1 [facility] Comment on above: Performed By: #### 2 [id number] ####[facility],[address] [place], [place] [id number] TIBIA-FIBULA RTon 10-16-2024 TIBIA-FIBULA RT [place] [address] Patient: SOCORRO KELLEY Phone#: : 1970 Age: 54 Gender: M Pt. Type: ER Account: [id number] Location: [facility] Ordering: JAKE MAXWELL Exam Date: 10/16/2024/13:23 Family Phys: Charge Code: [id number] Physician: [place] Order #: [id number] Dose#: PROCEDURE: X-RAY TIB FIB RT 2 [...] Corrine Bagley MD on 10/16/2024 at 14:12 [facility] XR ANKLE MINIMUM 3 VIEWS LEF Ton [...] 10/16/2024 10:39:42 PM Ordering Provider: RIC ARELLANO [facility] XR ANKLE MINIMUM 3 VIEWS RIG HTon [...] 10/16/2024 9:20:54 PM Ordering Provider: RIC ARELLANO [facility] XR ANKLE MINIMUM 3 VIEWS RIGHT [...] 10/16/2024 7:53:07 PM Ordering Provider: EM GARCIA [facility] XR ANKLE MINIMUM 3 VIEWS RIGHT [...] Date: 10/16/2024 6:28:12 PM Ordering Provider: EM Kate [facility] .Auto Diffon 10-04-2024 Basophil, Absolute 0.0 10 3/mcL Normal 0.0-0.3 [facility] Comment on above: Performed By: #### M G, GFR, ANEU, ADIFF, CBC, CMP, A1C, LIPID #### [address] [address] Basophils/100 WBC (Bld) 0.9 % Normal 0.0-2.5 [facility] Comment on above: Performed By: #### M G, GFR, ANEU, ADIFF, CBC, CMP, A1C, LIPID #### [address] [address] Eosinophil, Absolute 0.1 10 3/mcL Normal 0.0-0.7 [facility] Comment on above: Performed By: #### M G, GFR, ANEU, ADIFF, CBC, CMP, A1C, LIPID #### [address] [address] Eosinophils/100 WBC (Bld) 1.9 % Normal 0.0-6.0 [facility] Comment on above: Performed By: #### M G, GFR, ANEU, ADIFF, CBC, CMP, A1C, LIPID #### [address] [address] Lymphocyte, Absolute 1.0 10 3/mcL Normal 0.9-4.3 [facility] Comment on above: Performed By: #### M G, GFR, ANEU, ADIFF, CBC, CMP, A1C, LIPID #### [address] [address] Lymphocytes/100 WBC (Bld) 24.9 % Normal 20.0-40.0 [facility] Comment on above: Performed By: #### M G, GFR, ANEU, ADIFF, CBC, CMP, A1C, LIPID #### [address] [address] Monocyte, Absolute 0.3 10 3/mcL Normal 0.1-1.4 [facility] Comment on above: Performed By: #### M G, GFR, ANEU, ADIFF, CBC, CMP, A1C, LIPID #### [address] [address] Monocytes/100 WBC (Bld) 7.5 % Normal 2.0-13.0 [facility] Comment on above: Performed By: #### M G, GFR, ANEU, ADIFF, CBC, CMP, A1C, LIPID #### [address] [address] Neutrophils/100 WBC (Bld) 64.8 % Normal 50.0-75.0 [facility] Comment on above: Performed By: #### M G, GFR, ANEU, ADIFF, CBC, CMP, A1C, LIPID #### [address] [address] .GFRon 10-04-2024 Estimated Glomerular Filtration Rate 107 ml/min/1.73sqm Normal [facility] Comment on above: Result [...] ANEU, ADIFF, CBC, CMP, A1C, LIPID #### [address] [address] .NEUABSon 10-04-2024 Neutrophil, Absolute 2.5 10 3/mcL Normal 2.3-8.1 [facility] Comment on above: Performed By: #### M G, GFR, ANEU, ADIFF, CBC, CMP, A1C, LIPID #### [address] [address] BMPon 10-04-2024 BUN/Creatinine Ratio 6.5 ratio Low 10.0-22.0 [facility] Comment on above: Performed By: #### M G, GFR, ANEU, ADIFF, CBC, CMP, A1C, LIPID #### [address] [address] Calcium [Mass/Vol] 8.5 mg/dL Low 8.7-10.4 [facility] Comment on above: Performed By: #### M G, GFR, ANEU, ADIFF, CBC, CMP, A1C, LIPID #### [address] [address] Chloride [Moles/Vol] 102 mmol/L Normal 98-110 [facility] Comment on above: Performed By: #### M G, GFR, ANEU, ADIFF, CBC, CMP, A1C, LIPID #### [address] [address] CO2 [Moles/Vol] 31 mmol/L Normal 22-32 [facility] Comment on above: Performed By: #### M G, GFR, ANEU, ADIFF, CBC, CMP, A1C, LIPID #### [address] [address] Creatinine [Mass/Vol] 0.77 mg/dL Normal 0.60-1.40 [facility] Comment on above: Result Comment: Test ing performed on [employer] IT analyzer using enzymatic creatinine methodology. Performed By: #### M G, GFR, ANEU, ADIFF, CBC, CMP, A1C, LIPID #### [address] [address] Electrolyte Balance 6.0 mEq/L Normal 4.0-15.0 [facility] Comment on above: Performed By: #### M G, GFR, ANEU, ADIFF, CBC, CMP, A1C, LIPID #### [address] [address] Glucose [Mass/Vol] 108 mg/dL Normal 70-110 [facility] Comment on above: Performed By: #### M G, GFR, ANEU, ADIFF, CBC, CMP, A1C, LIPID #### [address] [address] Potassium [Moles/Vol] 3.5 mmol/L Normal 3.5-5.0 [facility] Comment on above: Performed By: #### M G, GFR, ANEU, ADIFF, CBC, CMP, A1C, LIPID #### [place] [id number] Sodium [Moles/Vol] 139 mmol/L Normal 136-145 [facility] Comment on above: Performed By: #### M G, GFR, ANEU, ADIFF, CBC, CMP, A1C, LIPID #### [place] [address] Urea nitrogen [Mass/Vol] 5.0 mg/dL Low 8.0-22.0 [facility] Comment on above: Performed By: #### M G, GFR, ANEU, ADIFF, CBC, CMP, A1C, LIPID #### [place] [address] CBCon 10-04-2024 Erythrocyte distribution width (RBC) [Ratio] 17.1 % High 11.5-15.5 [facility] Comment on above: Performed By: #### M G, GFR, ANEU, ADIFF, CBC, CMP, A1C, LIPID #### [place] [address] Hematocrit (Bld) [Volume fraction] 42.5 % Normal 40.0-52.0 [facility] Comment on above: Performed By: #### M G, GFR, ANEU, ADIFF, CBC, CMP, A1C, LIPID #### [place] [address] Hgb 13.8 G/dL Normal 13.0-17.5 [facility] Comment on above: Performed By: #### M G, GFR, ANEU, ADIFF, CBC, CMP, A1C, LIPID #### [place] [address] MCH (RBC) [Entitic mass] 28.4 pg Normal 27.0-33.0 [facility] Comment on above: Performed By: #### M G, GFR, ANEU, ADIFF, CBC, CMP, A1C, LIPID #### [place] [id number] MCHC 32.6 G/dL Normal 32.0-36.0 [facility] Comment on above: Performed By: #### M G, GFR, ANEU, ADIFF, CBC, CMP, A1C, LIPID #### [place] [address] MCV (RBC) [Entitic vol] 87.2 fL Normal 81.0-100.0 [facility] Comment on above: Performed By: #### M G, GFR, ANEU, ADIFF, CBC, CMP, A1C, LIPID #### [place] [address] Platelet 120 10 3/mcL Low 150-450 [facility] Comment on above: Performed By: #### M G, GFR, ANEU, ADIFF, CBC, CMP, A1C, LIPID #### [place] [address] Platelet mean volume (Bld) [Entitic vol] 7.4 fL Normal 6.4-10.5 [facility] Comment on above: Performed By: #### M G, GFR, ANEU, ADIFF, CBC, CMP, A1C, LIPID #### [place] [address] RBC 4.87 10 6/mcL Normal 4.50-6.00 [facility] Comment on above: Performed By: #### M G, GFR, ANEU, ADIFF, CBC, CMP, A1C, LIPID #### [place] [address] WBC 3.8 10 3/mcL Low 4.5-10.8 [facility] Comment on above: Performed By: #### M G, GFR, ANEU, ADIFF, CBC, CMP, A1C, LIPID #### [place] [address] LABORATORYOrdered By: Adenike Swain on 10-04-2024 Blood Glucose Testing Reason Routine (10/04/24 7:18 AM) [facility] Glucose [Mass/Vol] 100 mg/dL Normal 70 - 110 mg/dL [facility] LABORATORYOrdered By: SYSTEM SYSTEM on 10-04-2024 Basophils (Bld) [#/Vol] 0.0 103/mcL Normal 0.0 - 0.3 10^3/mcL Workflow SS Basophils/100 WBC (Bld) 0.9 % Normal 0.0 - 2.5 % AH Workflow SS Calcium [Mass/Vol] 8.5 mg/dL Low 8.7 - 10. 4 mg/dL ADM SS Chloride [Moles/Vol] 102 mmol/L Normal 98 - 11 0 mEq/L ADM SS CO2 [Moles/Vol] 31 mmol/L Normal 22 - 32 mEq/L ADM SS Creatinine [Mass/Vol] 0.77 mg/dL Normal 0.60 - 1.40 mg/dL ADM SS Comment on above: Interpretive Data: T esting performed on [employer] IT analyzer using enzymatic creatinine methodology. Electrolyte Balance 6.0 mEq/L Normal 4.0 - 15 .0 mEq/L ADM SS Eosinophils (Bld) [#/Vol] 0.1 103/mcL Normal 0.0 - 0.7 10^3/mcL Workflow SS Eosinophils/100 WBC (Bld) 1.9 % Normal 0.0 - 6.0 % Workflow SS Erythrocyte distribution width (RBC) [Ratio] 17.1 % High 11.5 - 15.5 % Workflow SS Estimated Glomerular Filtration Rate 107 [...] 42.5 % Normal 40.0 - 52.0 % AH Workflow SS Hemoglobin (Bld) [Mass/Vol] 13.8 G/dL Normal 13.0 - 17.5 G/dL AH Workflow SS Lymphocytes (Bld) [#/Vol] 1.0 103/mcL Normal 0.9 - 4.3 10^3/mcL AH Workflow SS Lymphocytes/100 WBC (Bld) 24.9 % Normal 20.0 - 40.0 % AH Workflow SS Magnesium [Mass/Vol] 1.9 mg/dL Normal 1.6 - 2 .4 mg/dL AH ADM SS MCH (RBC) [Entitic mass] 28.4 [...] 64.8 % Normal 50.0 - 75.0 % AH Workflow SS Platelet mean volume (Bld) [Entitic vol] 7.4 fL Normal 6.4 - 10.5 fL AH Workflow SS Platelets (Bld) [#/Vol] 120 103/mcL Low 150 - 450 10^3/mcL AH Workflow SS Potassium [Moles/Vol] 3.5 mmol/L Normal 3.5 - 5.0 mEq/L AH ADM SS RBC (Bld) [#/Vol] 4.87 106/mcL Normal 4.50 - 6.0 0 10^6/mcL AH Workflow SS Sodium [Moles/Vol] 139 mmol/L Normal 136 - 145 mEq/L AH ADM SS Urea nitrogen [Mass/Vol] 5.0 mg/dL Low 8.0 - 22.0 mg/dL AH ADM SS Urea nitrogen/Creatinine [Mass ratio] 6.5 ratio Low 10.0 - 22.0 ratio AH ADM SS WBC (Bld) [#/Vol] 3.8 103/mcL Low 4.5 - 10.8 10^3/mcL AH Workflow SS MGon 10-04-2024 Magnesium [Mass/Vol] 1.9 mg/dL Normal 1.6-2.4 [facility] Comment on above: Performed By: #### M G, GFR, ANEU, ADIFF, CBC, CMP, A1C, LIPID #### [address] [address] .Auto Diffon 10-03-2024 Basophil, Absolute 0.0 10 3/mcL Normal 0.0-0.3 [facility] Comment on above: Performed By: #### M G, GFR, ANEU, ADIFF, CBC, CMP, A1C, LIPID #### [address] [address] Basophils/100 WBC (Bld) 0.9 % Normal 0.0-2.5 [facility] Comment on above: Performed By: #### M G, GFR, ANEU, ADIFF, CBC, CMP, A1C, LIPID #### [address] [address] Eosinophil, Absolute 0.1 10 3/mcL Normal 0.0-0.7 [facility] Comment on above: Performed By: #### M G, GFR, ANEU, ADIFF, CBC, CMP, A1C, LIPID #### [address] [address] Eosinophils/100 WBC (Bld) 2.0 % Normal 0.0-6.0 [facility] Comment on above: Performed By: #### M G, GFR, ANEU, ADIFF, CBC, CMP, A1C, LIPID #### [address] [address] Lymphocyte, Absolute 0.9 10 3/mcL Normal 0.9-4.3 [facility] Comment on above: Performed By: #### M G, GFR, ANEU, ADIFF, CBC, CMP, A1C, LIPID #### [address] [address] Lymphocytes/100 WBC (Bld) 21.1 % Normal 20.0-40.0 [facility] Comment on above: Performed By: #### M G, GFR, ANEU, ADIFF, CBC, CMP, A1C, LIPID #### [facility] [address] [place] [address] Monocyte, Absolute 0.3 10 3/mcL Normal 0.1-1.4 [facility] Comment on above: Performed By: #### M G, GFR, ANEU, ADIFF, CBC, CMP, A1C, LIPID #### [place] [id number] [place] [address] Monocytes/100 WBC (Bld) 7.6 % Normal 2.0-13.0 [facility] Comment on above: Performed By: #### M G, GFR, ANEU, ADIFF, CBC, CMP, A1C, LIPID #### [place] [id number] [place] [address] Neutrophils/100 WBC (Bld) 68.4 % Normal 50.0-75.0 [facility] Comment on above: Performed By: #### M G, GFR, ANEU, ADIFF, CBC, CMP, A1C, LIPID #### [address] [address] .GFRon 10-03-2024 Estimated Glomerular Filtration Rate 109 ml/min/1.73sqm Normal [facility] Comment on above: Result [...] LIPID #### [facility] [address] [place] [address] .NEUABSon 10-03-2024 Neutrophil, Absolute 2.8 10 3/mcL Normal 2.3-8.1 [facility] Comment on above: Performed By: #### M G, GFR, ANEU, ADIFF, CBC, CMP, A1C, LIPID #### [place] [id number] A1Con 10-03-2024 Glucose [Mass/Vol] 114 mg/dL Normal [facility] Comment on above: Result Comment: Zahida mated Average Glucose calculated by equation ((28.7xA1C)-46.7) Estimated average glucose (eAG) is a calculated value from Hemoglobin A1C and is group sales representative of the average blood glucose level in the last 2-3 month period. Normal range: less than 114 mg/dL Performed By: #### M G, GFR, ANEU, ADIFF, CBC, CMP, A1C, LIPID #### [place] [address] HbA1c (Bld) [Mass fraction] 5.6 % Normal 4.0-6.0 [facility] Comment on above: Performed By: #### M G, GFR, ANEU, ADIFF, CBC, CMP, A1C, LIPID #### [place] [address] CBCon 10-03-2024 Erythrocyte distribution width (RBC) [Ratio] 16.6 % High 11.5-15.5 [facility] Comment on above: Performed By: #### M G, GFR, ANEU, ADIFF, CBC, CMP, A1C, LIPID #### [place] [address] Hematocrit (Bld) [Volume fraction] 41.1 % Normal 40.0-52.0 [facility] Comment on above: Performed By: #### M G, GFR, ANEU, ADIFF, CBC, CMP, A1C, LIPID #### [place] [address] Hgb 13.5 G/dL Normal 13.0-17.5 [facility] Comment on above: Performed By: #### M G, GFR, ANEU, ADIFF, CBC, CMP, A1C, LIPID #### [place] [address] MCH (RBC) [Entitic mass] 28.7 pg Normal 27.0-33.0 [facility] Comment on above: Performed By: #### M G, GFR, ANEU, ADIFF, CBC, CMP, A1C, LIPID #### [place] [address] MCHC 32.9 G/dL Normal 32.0-36.0 [facility] Comment on above: Performed By: #### M G, GFR, ANEU, ADIFF, CBC, CMP, A1C, LIPID #### [place] [address] MCV (RBC) [Entitic vol] 87.2 fL Normal 81.0-100.0 [facility] Comment on above: Performed By: #### M G, GFR, ANEU, ADIFF, CBC, CMP, A1C, LIPID #### [place] [address] Platelet 136 10 3/mcL Low 150-450 [facility] Comment on above: Performed By: #### M G, GFR, ANEU, ADIFF, CBC, CMP, A1C, LIPID #### [place] [address] Platelet mean volume (Bld) [Entitic vol] 7.6 fL Normal 6.4-10.5 [facility] Comment on above: Performed By: #### M G, GFR, ANEU, ADIFF, CBC, CMP, A1C, LIPID #### [place] [address] RBC 4.72 10 6/mcL Normal 4.50-6.00 [facility] Comment on above: Performed By: #### M G, GFR, ANEU, ADIFF, CBC, CMP, A1C, LIPID #### [place] [id number] WBC 4.2 10 3/mcL Low 4.5-10.8 [facility] Comment on above: Performed By: #### M G, GFR, ANEU, ADIFF, CBC, CMP, A1C, LIPID #### [place] [address] CMPon 10-03-2024 Albumin Level 3.3 G/dL Normal 3.2-4.8 [facility] Comment on above: Performed By: #### M G, GFR, ANEU, ADIFF, CBC, CMP, A1C, LIPID #### [address] [address] Albumin/Globulin [Mass ratio] 1.0 {ratio} Normal 0.9-1.6 [facility] Comment on above: Performed By: #### M G, GFR, ANEU, ADIFF, CBC, CMP, A1C, LIPID #### [place] [id number] ALP [Catalytic activity/Vol] 56 U/L Normal 38-126 [facility] Comment on above: Performed By: #### M G, GFR, ANEU, ADIFF, CBC, CMP, A1C, LIPID #### [place] [id number] ALT [Catalytic activity/Vol] 10 U/L Low 12-55 [facility] Comment on above: Performed By: #### M G, GFR, ANEU, ADIFF, CBC, CMP, A1C, LIPID #### [place] [id number] AST [Catalytic activity/Vol] 16 U/L Normal 8-34 [facility] Comment on above: Performed By: #### M G, GFR, ANEU, ADIFF, CBC, CMP, A1C, LIPID #### [place] [id number] Bili Total 0.60 mg/dL Normal 0.20-1.20 [facility] Comment on above: Result Comment: Use of this assay is not recommended for patients undergoing treatment with eltrombopag due to the potential for falsely elevated results. Performed By: #### M G, GFR, ANEU, ADIFF, CBC, CMP, A1C, LIPID #### [place] [id number] BUN/Creatinine Ratio 9.6 ratio Low 10.0-22.0 [facility] Comment on above: Performed By: #### M G, GFR, ANEU, ADIFF, CBC, CMP, A1C, LIPID #### [place] [id number] Calcium [Mass/Vol] 8.4 mg/dL Low 8.7-10.4 [facility] Comment on above: Performed By: #### M G, GFR, ANEU, ADIFF, CBC, CMP, A1C, LIPID #### [address] [address] Chloride [Moles/Vol] 105 mmol/L Normal 98-110 [facility] Comment on above: Performed By: #### M G, GFR, ANEU, ADIFF, CBC, CMP, A1C, LIPID #### [address] [address] CO2 [Moles/Vol] 31 mmol/L Normal 22-32 [facility] Comment on above: Performed By: #### M G, GFR, ANEU, ADIFF, CBC, CMP, A1C, LIPID #### [address] [address] Creatinine [Mass/Vol] 0.73 mg/dL Normal 0.60-1.40 [facility] Comment on above: Result Comment: Test ing performed on [employer] IT analyzer using enzymatic creatinine methodology. Performed By: #### M G, GFR, ANEU, ADIFF, CBC, CMP, A1C, LIPID #### [address] [address] Electrolyte Balance 1.0 mEq/L Low 4.0-15.0 [facility] Comment on above: Performed By: #### M G, GFR, ANEU, ADIFF, CBC, CMP, A1C, LIPID #### [address] [address] Globulin 3.2 G/dL Normal 2.5-4.2 [facility] Comment on above: Performed By: #### M G, GFR, ANEU, ADIFF, CBC, CMP, A1C, LIPID #### [address] [address] Glucose [Mass/Vol] 109 mg/dL Normal 70-110 [facility] Comment on above: Performed By: #### M G, GFR, ANEU, ADIFF, CBC, CMP, A1C, LIPID #### [address] [address] Potassium [Moles/Vol] 3.5 mmol/L Normal 3.5-5.0 [facility] Comment on above: Performed By: #### M G, GFR, ANEU, ADIFF, CBC, CMP, A1C, LIPID #### [place] [id number] [place] [address] Sodium [Moles/Vol] 137 mmol/L Normal 136-145 [facility] Comment on above: Performed By: #### M G, GFR, ANEU, ADIFF, CBC, CMP, A1C, LIPID #### [address] [address] Total Protein 6.5 G/dL Normal 5.7-8.2 [facility] Comment on above: Performed By: #### M G, GFR, ANEU, ADIFF, CBC, CMP, A1C, LIPID #### [address] [address] Urea nitrogen [Mass/Vol] 7.0 mg/dL Low 8.0-22.0 [facility] Comment on above: Performed By: #### M G, GFR, ANEU, ADIFF, CBC, CMP, A1C, LIPID #### [address] [address] LABORATORYOrdered By: Jorge Wahl on 10-03-2024 Blood [...] mg/dL [facility] LABORATORYOrdered By: P[employer]ce SYSTEM on 10-03-2024 Albumin BCP dye [Mass/Vol] 3.3 G/dL Normal 3.2 - 4.8 G/dL ADM SS Albumin/Globulin [Mass ratio] 1.0 {ratio} Normal 0.9 - 1.6 ratio AH ADM SS ALP [Catalytic activity/Vol] 56 U/L Normal 38 - 126 U/L ADM SS ALT No additional P-5'-P [Catalytic activity/Vol] 10 U/L Low 12 - 55 U/L AH ADM SS AST [Catalytic activity/Vol] 16 U/L [...] 10. 4 mg/dL ADM SS Chloride [Moles/Vol] 105 mmol/L Normal 98 - 11 0 mEq/L ADM SS CO2 [Moles/Vol] 31 mmol/L Normal 22 - 32 mEq/L ADM SS Creatinine [Mass/Vol] 0.73 mg/dL Normal 0.60 - 1.40 mg/dL ADM SS Comment on above: Interpretive Data: T esting performed on [employer] analyzer using enzymatic creatinine methodology. Electrolyte Balance 1.0 mEq/L Low 4.0 - 15 .0 mEq/L ADM SS Eosinophils (Bld) [#/Vol] 0.1 103/mcL Normal 0.0 - 0.7 10^3/mcL Workflow SS Eosinophils/100 WBC (Bld) 2.0 % [...] calculated value from Hemoglobin A1C and is group sales representative of the average blood glucose level in the last 2-3 month period. Normal range: less than 114 mg/dL HbA1c (Bld) [Mass fraction] 5.6 % Normal 4.0 - 6.0 % Auto Chem SS Hematocrit (Bld) [Volume fraction] 41.1 % Normal 40.0 - 52.0 % Workflow SS Hemoglobin (Bld) [Mass/Vol] 13.5 G/dL Normal 13.0 - 17.5 G/dL AH Workflow SS Lymphocytes (Bld) [#/Vol] 0.9 103/mcL Normal 0.9 - 4.3 10^3/mcL AH Workflow SS Lymphocytes/100 WBC (Bld) 21.1 % Normal 20.0 - 40.0 % AH Workflow SS Magnesium [Mass/Vol] 2.1 mg/dL Normal 1.6 - 2 .4 mg/dL ADM SS MCH (RBC) [Entitic mass] 28.7 [...] 10.5 fL Workflow SS Platelets (Bld) [#/Vol] 136 103/mcL Low 150 - 450 10^3/mcL AH Workflow SS Potassium [Moles/Vol] 3.5 mmol/L Normal 3.5 - 5.0 mEq/L ADM SS Protein [Mass/Vol] 6.5 G/dL Normal 5.7 - 8.2 G/dL ADM SS RBC (Bld) [#/Vol] 4.72 106/mcL Normal 4.50 - 6.0 0 10^6/mcL AH Workflow SS Sodium [Moles/Vol] 137 mmol/L Normal 136 - 145 mEq/L ADM SS Urea nitrogen [Mass/Vol] 7.0 mg/dL Low 8.0 - 22.0 mg/dL ADM SS Urea nitrogen/Creatinine [Mass ratio] 9.6 ratio Low 10.0 - 22.0 ratio ADM SS WBC (Bld) [#/Vol] 4.2 103/mcL Low 4.5 - 10.8 10^3/mcL Workflow SS LABORATORYOrdered By: Zully Petersen on 10-03-2024 Cholesterol [Mass/Vol] 105 mg/dL Normal 50 - 199 mg/dL ADM SS Comment on above: Interpretive [...] 10-03-2024 Cholesterol [Mass/Vol] 105 mg/dL Normal 50-199 [facility] Comment on above: Result Comment: Chol esterol Reference Interval: Less than 200 Desirable 200-239 Borderline high risk 240 and above High risk Performed By: #### M G, GFR, ANEU, ADIFF, CBC, CMP, A1C, LIPID #### [facility] [address] [place] [id number] Cholesterol in HDL [Mass/Vol] 17 mg/dL Low 40-59 [facility] Comment on above: Performed By: #### M G, GFR, ANEU, ADIFF, CBC, CMP, A1C, LIPID #### [address] [id number] Cholesterol in LDL [Mass/Vol] 58 mg/dL Normal 0-129 [facility] Comment on above: Performed By: #### M G, GFR, ANEU, ADIFF, CBC, CMP, A1C, LIPID #### [place] [id number] Triglyceride [Mass/Vol] 151 mg/dL High 3-149 [facility] Comment on above: Performed By: #### M G, GFR, ANEU, ADIFF, CBC, CMP, A1C, LIPID #### [address] [address] MGon 10-03-2024 Magnesium [Mass/Vol] 2.1 mg/dL Normal 1.6-2.4 [facility] Comment on above: Performed By: #### M G, GFR, ANEU, ADIFF, CBC, CMP, A1C, LIPID #### [address] [address] .Auto Diffon 10-02-2024 Basophil, Absolute 0.0 10 3/mcL Normal 0.0-0.3 [facility] Comment on above: Performed By: #### M G, GFR, ANEU, ADIFF, CBC, CMP, A1C, LIPID #### [address] [address] Basophils/100 WBC (Bld) 0.6 % Normal 0.0-2.5 [facility] Comment on above: Performed By: #### M G, GFR, ANEU, ADIFF, CBC, CMP, A1C, LIPID #### [address] [address] Eosinophil, Absolute 0.1 10 3/mcL Normal 0.0-0.7 [facility] Comment on above: Performed By: #### M G, GFR, ANEU, ADIFF, CBC, CMP, A1C, LIPID #### [place] [id number] Eosinophils/100 WBC (Bld) 1.0 % Normal 0.0-6.0 [facility] Comment on above: Performed By: #### M G, GFR, ANEU, ADIFF, CBC, CMP, A1C, LIPID #### [address] [address] Lymphocyte, Absolute 1.2 10 3/mcL Normal 0.9-4.3 [facility] Comment on above: Performed By: #### M G, GFR, ANEU, ADIFF, CBC, CMP, A1C, LIPID #### [address] [address] Lymphocytes/100 WBC (Bld) 18.1 % Low 20.0-40.0 [facility] Comment on above: Performed By: #### M G, GFR, ANEU, ADIFF, CBC, CMP, A1C, LIPID #### [address] [address] Monocyte, Absolute 0.7 10 3/mcL Normal 0.1-1.4 [facility] Comment on above: Performed By: #### M G, GFR, ANEU, ADIFF, CBC, CMP, A1C, LIPID #### [address] [address] Monocytes/100 WBC (Bld) 10.0 % Normal 2.0-13.0 [facility] Comment on above: Performed By: #### M G, GFR, ANEU, ADIFF, CBC, CMP, A1C, LIPID #### [address] [address] Neutrophils/100 WBC (Bld) 70.3 % Normal 50.0-75.0 [facility] Comment on above: Performed By: #### M G, GFR, ANEU, ADIFF, CBC, CMP, A1C, LIPID #### [address] [address] Basophil, Absolute 0.1 10 3/mcL Normal 0.0-0.3 [facility] Comment on above: Performed By: #### A DIFF, MDW, PRO, TROPHS, GFR, ANEU, CBC, PBNP, BMP ####[address] [address] Basophils/100 WBC (Bld) 0.8 % Normal 0.0-2.5 [facility] Comment on above: Performed By: #### A DIFF, MDW, PRO, TROPHS, GFR, ANEU, CBC, PBNP, BMP ####[address] [address] Eosinophil, Absolute 0.1 10 3/mcL Normal 0.0-0.[address] [facility] Comment on above: Performed By: #### A DIFF, MDW, PRO, TROPHS, GFR, ANEU, CBC, PBNP, BMP ####[address] [address] Eosinophils/100 WBC (Bld) 1.2 % Normal 0.0-6.0 [facility] Comment on above: Performed By: #### A DIFF, MDW, PRO, TROPHS, GFR, ANEU, CBC, PBNP, BMP ####[address] [address] Lymphocyte, Absolute 1.4 10 3/mcL Normal 0.9-4.[address] [facility] Comment on above: Performed By: #### A DIFF, MDW, PRO, TROPHS, GFR, ANEU, CBC, PBNP, BMP ####[address] [address] Lymphocytes/100 WBC (Bld) 13.3 % Low 20.0-40.0 [facility] Comment on above: Performed By: #### A DIFF, EYL, PRO, TROPHS, GFR, ANEU, CBC, PBNP, BMP ####[address] [address] Monocyte, Absolute 0.8 10 3/mcL Normal 0.1-1.4 [facility] Comment on above: Performed By: #### A DIFF, MDW, PRO, TROPHS, GFR, ANEU, CBC, PBNP, BMP ####[address] [address] Monocytes/100 WBC (Bld) 7.6 % Normal 2.0-13.0 [facility] Comment on above: Performed By: #### A DIFF, MDW, PRO, TROPHS, GFR, ANEU, CBC, PBNP, BMP ####[facility] [place] [facility] [place], [place] [address] Neutrophils/100 WBC (Bld) 77.1 % High 50.0-75.0 [facility] Comment on above: Performed By: #### A DIFF, MDW, PRO, TROPHS, GFR, ANEU, CBC, PBNP, BMP ####[facility] [place] [facility] [place], [place] [address] .GFRon 10-02-2024 Estimated Glomerular Filtration Rate 110 ml/min/1.73sqm Normal [facility] Comment on above: Result [...] ANEU, ADIFF, CBC, CMP, A1C, LIPID #### [address] [address] Estimated Glomerular Filtration Rate 104 ml/min/1.73sqm Normal [facility] Comment on above: Result Comment: Stages of [...] PRO, TROPHS, GFR, ANEU, CBC, PBNP, BMP ####[facility] [place] [facility] [place], [place] [address] .MDWon 10-02-2024 Monocyte Distribution Width 19.51 Normal 0.00-20.00 [facility] Comment on above: Result Comment: For ED adult patients suspected of sepsis, MDW<=20.0 does not rule out sepsis or risk of sepsis Performed By: #### A DIFF, MDW, PRO, TROPHS, GFR, ANEU, CBC, PBNP, BMP ####[place] [address] [place], [place] [address] .NEUABSon 10-02-2024 Neutrophil, Absolute 4.7 10 3/mcL Normal 2.3-8.1 [facility] Comment on above: Performed By: #### M G, GFR, ANEU, ADIFF, CBC, CMP, A1C, LIPID #### [address] [address] Neutrophil, Absolute 8.4 10 3/mcL High 2.3-8.[address] [facility] Comment on above: Performed By: #### A DIFF, MDW, PRO, TROPHS, GFR, ANEU, CBC, PBNP, BMP ####[facility] [place] [facility] [place], [place] [address] APTTon 10-02-2024 aPTT Coag (Bld) [Time] 36.5 s High 25.0-35.0 [facility] Comment on above: Result Comment: For Heparin anticoagulation therapy, the recommended therapeutic range is: 54-77 seconds (APTT Correlation with Anti-Xa therapeutic range of 0.3-0.7 units/ml). PLEASE REFERENCE THE PHARMACY PROTOCOL FOR DOSING. Performed By: #### M G, GFR, ANEU, ADIFF, CBC, CMP, A1C, LIPID #### [address] [address] aPTT Coag (Bld) [Time] 29.3 s Normal 25.0-35.0 [facility] Comment on above: Result Comment: For Heparin anticoagulation therapy, the recommended therapeutic range is: 54-77 seconds (APTT Correlation with Anti-Xa therapeutic range of 0.3-0.7 units/ml). PLEASE REFERENCE THE PHARMACY PROTOCOL FOR DOSING. Performed By: #### M G, GFR, ANEU, ADIFF, CBC, CMP, A1C, LIPID #### [facility] [address] [place] [address] [facility] 10-02-2024 BUN/Creatinine Ratio 14 ratio Normal 7-27 [facility] Comment on above: Performed By: #### A DIFF, MDW, PRO, TROPHS, GFR, ANEU, CBC, PBNP, BMP ####[address] [address] Calcium [Mass/Vol] 8.9 mg/dL Normal 8.4-10.2 [facility] Comment on above: Performed By: #### A DIFF, MDW, PRO, TROPHS, GFR, ANEU, CBC, PBNP, BMP ####[address] [address] Chloride [Moles/Vol] 101 mmol/L Normal 98-107 [facility] Comment on above: Performed By: #### A DIFF, MDW, PRO, TROPHS, GFR, ANEU, CBC, PBNP, BMP ####[address] [address] CO2 [Moles/Vol] 31 mmol/L High 22-29 [facility] Comment on above: Performed By: #### A DIFF, MDW, PRO, TROPHS, GFR, ANEU, CBC, PBNP, BMP ####[address] [address] Creatinine [Mass/Vol] 0.85 mg/dL Normal 0.67-1.17 [facility] Comment on above: Performed By: #### A DIFF, MDW, PRO, TROPHS, GFR, ANEU, CBC, PBNP, BMP ####[place] [address] [place], [place] [address] Electrolyte Balance 6.0 mEq/L Normal 4.0-15.0 [facility] Comment on above: Performed By: #### A DIFF, MDW, PRO, TROPHS, GFR, ANEU, CBC, PBNP, BMP ####[place] [address] [place], [place] [address] Glucose [Mass/Vol] 157 mg/dL High 70-105 [facility] Comment on above: Performed By: #### A ELY LLAMAS, PRO, TROPHS, GFR, ANEU, CBC, PBNP, BMP ####[place] [address] [place], [place] [address] Potassium [Moles/Vol] 3.1 mmol/L Low 3.5-5.1 [facility] Comment on above: Performed By: #### A ELY LLAMAS, PRO, TROPHS, GFR, ANEU, CBC, PBNP, BMP ####[place] [address] [place], [place] [address] Sodium [Moles/Vol] 138 mmol/L Normal 136-145 [facility] Comment on above: Performed By: #### A ELY LLAMAS, PRO, TROPHS, GFR, ANEU, CBC, PBNP, BMP ####[address] [address] Urea nitrogen [Mass/Vol] 12 mg/dL Normal 7-18 [facility] Comment on above: Performed By: #### A ELY LLAMAS, PRO, TROPHS, GFR, ANEU, CBC, PBNP, BMP ####[place] [address] [place], [place] [address] CAIONo 10-02-2024 Calcium Ionized 1.09 mmol/L Low 1.12-1.32 [facility] Comment on above: Performed By: #### M G, GFR, ANEU, ADIFF, CBC, CMP, A1C, LIPID #### [address] [address] CBCon 10-02-2024 Erythrocyte distribution width (RBC) [Ratio] 16.6 % High 11.5-15.5 [facility] Comment on above: Performed By: #### M G, GFR, ANEU, ADIFF, CBC, CMP, A1C, LIPID #### [address] [address] Hematocrit (Bld) [Volume fraction] 47.4 % Normal 40.0-52.0 [facility] Comment on above: Performed By: #### M G, GFR, ANEU, ADIFF, CBC, CMP, A1C, LIPID #### [place] [address] Hgb 15.6 G/dL Normal 13.0-17.5 [facility] Comment on above: Performed By: #### M G, GFR, ANEU, ADIFF, CBC, CMP, A1C, LIPID #### [place] [address] MCH (RBC) [Entitic mass] 28.7 pg Normal 27.0-33.0 [facility] Comment on above: Performed By: #### M G, GFR, ANEU, ADIFF, CBC, CMP, A1C, LIPID #### [place] [address] MCHC 32.9 G/dL Normal 32.0-36.0 [facility] Comment on above: Performed By: #### M G, GFR, ANEU, ADIFF, CBC, CMP, A1C, LIPID #### [place] [address] MCV (RBC) [Entitic vol] 87.2 fL Normal 81.0-100.0 [facility] Comment on above: Performed By: #### M G, GFR, ANEU, ADIFF, CBC, CMP, A1C, LIPID #### [place] [address] Platelet 139 10 3/mcL Low 150-450 [facility] Comment on above: Performed By: #### M G, GFR, ANEU, ADIFF, CBC, CMP, A1C, LIPID #### [place] [address] Platelet mean volume (Bld) [Entitic vol] 7.7 fL Normal 6.4-10.5 [facility] Comment on above: Performed By: #### M G, GFR, ANEU, ADIFF, CBC, CMP, A1C, LIPID #### [place] [address] RBC 5.44 10 6/mcL Normal 4.50-6.00 [facility] Comment on above: Performed By: #### M G, GFR, ANEU, ADIFF, CBC, CMP, A1C, LIPID #### [address] [address] WBC 6.6 10 3/mcL Normal 4.5-10.8 [facility] Comment on above: Performed By: #### M G, GFR, ANEU, ADIFF, CBC, CMP, A1C, LIPID #### [address] [address] Erythrocyte distribution width (RBC) [Ratio] 16.6 % High 11.5-15.5 [facility] Comment on above: Performed By: #### A DIFF, MDW, PRO, TROPHS, GFR, ANEU, CBC, PBNP, BMP ####[address] [place], [place] [address] Hematocrit (Bld) [Volume fraction] 51.4 % Normal 40.0-52.0 [facility] Comment on above: Performed By: #### A DIFF, MDW, PRO, TROPHS, GFR, ANEU, CBC, PBNP, BMP ####[address] [place], [place] [address] Hgb 17.1 G/dL Normal 13.0-17.5 [facility] Comment on above: Performed By: #### A DIFF, MDW, PRO, TROPHS, GFR, ANEU, CBC, PBNP, BMP ####[address] [place], [place] [address] MCH (RBC) [Entitic mass] 28.9 pg Normal 27.0-33.0 [facility] Comment on above: Performed By: #### A DIFF, MDW, PRO, TROPHS, GFR, ANEU, CBC, PBNP, BMP ####[facility] [place] [facility] [place], [place] [address] MCHC 33.3 G/dL Normal 32.0-36.0 [facility] Comment on above: Performed By: #### A DIFF, MDW, PRO, TROPHS, GFR, ANEU, CBC, PBNP, BMP ####[facility] [place] [facility] [place], [place] [address] MCV (RBC) [Entitic vol] 86.7 fL Normal 81.0-100.0 [facility] Comment on above: Performed By: #### A DIFF, MDW, PRO, TROPHS, GFR, ANEU, CBC, PBNP, BMP ####[facility] [place] [facility] [place], [place] [address] Platelet 199 10 3/mcL Normal 150-450 [facility] Comment on above: Performed By: #### A DIFF, MDW, PRO, TROPHS, GFR, ANEU, CBC, PBNP, BMP ####[place] [address] [place], [place] [address] Platelet mean volume (Bld) [Entitic vol] 7.3 fL Normal 6.4-10.5 [facility] Comment on above: Performed By: #### A DIFF, MDW, PRO, TROPHS, GFR, ANEU, CBC, PBNP, BMP ####[place] [address] [place], [place] [address] RBC 5.93 10 6/mcL Normal 4.50-6.00 [facility] Comment on above: Performed By: #### A DIFF, MDW, PRO, TROPHS, GFR, ANEU, CBC, PBNP, BMP ####[facility] [place] [facility] [place], [place] [address] WBC 10.9 10 3/mcL High 4.5-10.8 [facility] Comment on above: Performed By: #### A DIFF, MDW, PRO, TROPHS, GFR, ANEU, CBC, PBNP, BMP ####[facility] [place] [facility] [place], [place] [address] CMPon 10-02-2024 Albumin Level 3.2 G/dL Normal 3.2-4.8 [facility] Comment on above: Performed By: #### M G, GFR, ANEU, ADIFF, CBC, CMP, A1C, LIPID #### [facility] [address] [place] [address] Albumin/Globulin [Mass ratio] 0.9 {ratio} Normal 0.9-1.6 [facility] Comment on above: Performed By: #### M G, GFR, ANEU, ADIFF, CBC, CMP, A1C, LIPID #### [address] [address] ALP [Catalytic activity/Vol] 60 U/L Normal 38-126 [facility] Comment on above: Performed By: #### M G, GFR, ANEU, ADIFF, CBC, CMP, A1C, LIPID #### [place] [id number] ALT/SGPT <8 Low 12-55 [facility] Comment on above: Performed By: #### M G, GFR, ANEU, ADIFF, CBC, CMP, A1C, LIPID #### [address] [address] AST [Catalytic activity/Vol] 15 U/L Normal 8-34 [facility] Comment on above: Performed By: #### M G, GFR, ANEU, ADIFF, CBC, CMP, A1C, LIPID #### [place] [id number] Bili Total 0.60 mg/dL Normal 0.20-1.20 [facility] Comment on above: Result Comment: Use of this assay is not recommended for patients undergoing treatment with eltrombopag due to the potential for falsely elevated results. Performed By: #### M G, GFR, ANEU, ADIFF, CBC, CMP, A1C, LIPID #### [place] [id number] BUN/Creatinine Ratio 15.5 ratio Normal 10.0-22.0 [facility] Comment on above: Performed By: #### M G, GFR, ANEU, ADIFF, CBC, CMP, A1C, LIPID #### [address] [address] Calcium [Mass/Vol] 8.4 mg/dL Low 8.7-10.4 [facility] Comment on above: Performed By: #### M G, GFR, ANEU, ADIFF, CBC, CMP, A1C, LIPID #### [place] [id number] Chloride [Moles/Vol] 102 mmol/L Normal 98-110 [facility] Comment on above: Performed By: #### M G, GFR, ANEU, ADIFF, CBC, CMP, A1C, LIPID #### [address] [address] CO2 [Moles/Vol] 25 mmol/L Normal 22-32 [facility] Comment on above: Performed By: #### M G, GFR, ANEU, ADIFF, CBC, CMP, A1C, LIPID #### [address] [address] Creatinine [Mass/Vol] 0.71 mg/dL Normal 0.60-1.40 [facility] Comment on above: Result Comment: Test ing performed on [employer] analyzer using enzymatic creatinine methodology. Performed By: #### M G, GFR, ANEU, ADIFF, CBC, CMP, A1C, LIPID #### [address] [address] Electrolyte Balance 12.0 mEq/L Normal 4.0-15.0 [facility] Comment on above: Performed By: #### M G, GFR, ANEU, ADIFF, CBC, CMP, A1C, LIPID #### [address] [address] Globulin 3.5 G/dL Normal 2.5-4.2 [facility] Comment on above: Performed By: #### M G, GFR, ANEU, ADIFF, CBC, CMP, A1C, LIPID #### [address] [address] Glucose [Mass/Vol] 109 mg/dL Normal 70-110 [facility] Comment on above: Performed By: #### M G, GFR, ANEU, ADIFF, CBC, CMP, A1C, LIPID #### [address] [address] Potassium [Moles/Vol] 3.5 mmol/L Normal 3.5-5.0 [facility] Comment on above: Performed By: #### M G, GFR, ANEU, ADIFF, CBC, CMP, A1C, LIPID #### [address] [address] Sodium [Moles/Vol] 139 mmol/L Normal 136-145 [facility] Comment on above: Performed By: #### M G, GFR, ANEU, ADIFF, CBC, CMP, A1C, LIPID #### [place] [address] [place] [address] Total Protein 6.7 G/dL Normal 5.7-8.2 [facility] Comment on above: Performed By: #### M G, GFR, ANEU, ADIFF, CBC, CMP, A1C, LIPID #### [address] [address] Urea nitrogen [Mass/Vol] 11.0 mg/dL Normal 8.0-22.0 [facility] Comment on above: Performed By: #### M G, GFR, ANEU, ADIFF, CBC, CMP, A1C, LIPID #### [address] [address] LABORATORYOrdered By: SYSTEM SYSTEM on 10-02-2024 aPTT Coag (Bld) [Time] 36.5 s High 25.0 - 35.0 seconds [facility] Comment on above: Interpretive Data: F or Heparin anticoagulation therapy, the recommended therapeutic range is: 54-77 seconds (APTT Correlation with Anti-Xa therapeutic range of 0.3-0.7 units/ml). PLEASE REFERENCE THE PHARMACY PROTOCOL FOR DOSING. Albumin BCP dye [Mass/Vol] 3.2 G/dL Normal 3.2 - 4.8 G/dL ADM SS Albumin/Globulin [Mass ratio] 0.9 {ratio} Normal 0.9 - 1.6 ratio ADM SS ALP [Catalytic activity/Vol] 60 U/L Normal 38 - 126 U/L ADM SS ALT No additional P-5'-P [Catalytic activity/Vol] U/L 1 Low 12 - 55 U/L ADM SS aPTT Coag (Bld) [Time] 29.3 [...] 25 mmol/L Normal 22 - 32 mEq/L ADM SS Creatinine [Mass/Vol] 0.71 mg/dL Normal 0.60 - 1.40 mg/dL ADM SS Comment on above: Interpretive Data: T esting performed on [employer] IT analyzer using enzymatic creatinine methodology. Electrolyte Balance [...] Filtration Rate 110 ml/min/1.73sqm Invalid Interpretation Code ADM SS Comment [...] 3.5 G/dL Normal 2.5 - 4.2 G/dL ADM SS Glucose [Mass/Vol] 109 mg/dL Normal 70 - 110 mg/dL ADM SS Hematocrit (Bld) [Volume fraction] 47.4 % Normal [...] mg/dL ADM SS MCH (RBC) [Entitic mass] 28.7 [...] Code [facility] Comment on above: Interpretive Data: Riley linn [employer] (CHEST, 1992, 102:312S-25S) recommended therapeutic range for oral anticoagulant therapy is: LOW RISK: Prophylaxis of venous thrombosis INR: 2.0-3.0 Treatment of pulmonary embolism 2.0-3.0 Prevention of systemic embolism 2.0-3.0 HIGH RISK: Mechanical prosthetic valves 2.5-3.5 RBC (Bld) [#/Vol] 5.44 106/mcL Normal 4.50 - 6.0 0 10^6/mcL Workflow SS Sodium [Moles/Vol] 139 mmol/L Normal 136 - 145 mEq/L ADM SS Troponin I.cardiac DL <= 0.01 ng/mL [Mass/Vol] 6 ng/L Normal 0 - 54 ng/L ADM Comment on above: Interpretive Data: High Sensitive Troponin I Reference Ranges: Female: 0-34 ng/L Male: 0-54 ng/L Testing performed on [employer] analyzer using direct chemiluminescent technology. TSH Qn 1.923 mIU/mL Normal 0.550 - 4.780 mIU/mL ADM SS Urea nitrogen [Mass/Vol] 11.0 mg/dL Normal 8.0 - 22.0 mg/dL ADM SS Urea nitrogen/Creatinine [Mass ratio] 15.5 ratio Normal 10.0 - 22.0 ratio ADM SS WBC (Bld) [#/Vol] 6.6 103/mcL Normal 4.5 - 10.8 10^3/mcL Workflow SS Troponin I.cardiac DL <= 0.01 ng/mL [Mass/Vol] 9 ng/L Normal 0 - 76 ng/L AO ADM SS Comment on above: Interpretive Data: H igh Sensitive Troponin I Reference Ranges: Female: 0-51 ng/L Male: 0-76 ng/L Testing performed on 2sms using a homogeneous sandwich chemiluminescent immunoassay based on [employer] technology. Basophils (Bld) [#/Vol] 0.1 103/mcL Normal [...] [facility] SS Comment on above: Interpretive Data: Riley linn [employer] (CHEST, 1991, 102:312S-25S) [...] ng/L Male: 0-76 ng/L Testing performed on 2sms using a homogeneous sandwich chemiluminescent immunoassay based on [employer] technology. Urea nitrogen [Mass/Vol] 12 mg/dL Normal [...] 10-02-2024 Magnesium [Mass/Vol] 1.8 mg/dL Normal 1.6-2.4 [facility] Comment on above: Performed By: #### M G, GFR, ANEU, ADIFF, CBC, CMP, A1C, LIPID #### [address] [address] Magnesium [Mass/Vol] 1.7 mg/dL Low 1.8-2.4 [facility] Comment on above: Performed By: #### M G ####[facility] [place] [facility] [place], [place] [address] PBNPon 10-02-2024 Natriuretic peptide B (Bld) [Mass/Vol] 2223 pg/mL High 0-900 [facility] Comment on above: Performed By: #### M G, GFR, ANEU, ADIFF, CBC, CMP, A1C, LIPID #### [place] [id number] [place] [address] Natriuretic peptide B (Bld) [Mass/Vol] 973 pg/mL High 0-125 [facility] Comment on above: Result Comment: NT-p roBNP results of less than 300 pg/mL effectively rules out acute congestive heart failure with 99% negative predictive value. Performed By: #### A DIFF, MDW, PRO, TROPHS, GFR, ANEU, CBC, PBNP, BMP ####[facility] [place] [facility] [place], [place] [address] PHOSon 10-02-2024 Phosphate [Mass/Vol] 2.2 mg/dL Low 2.4-5.1 [facility] Comment on above: Result Comment: No te - New Reference Range in effect 19 Performed By: #### M G, GFR, ANEU, ADIFF, CBC, CMP, A1C, LIPID #### [address] [address] PROon 10-02-2024 INR Coag (PPP) [Relative time] 1.2 {INR} Normal [facility] Comment on above: Result Comment: [employer] (CHEST, 1992, 102:312S-25S) recommended therapeutic range for oral anticoagulant therapy is: LOW RISK: Prophylaxis of venous thrombosis INR: 2.0-3.0 Treatment of pulmonary embolism 2.0-3.0 Prevention of systemic embolism 2.0-3.0 HIGH RISK: Mechanical prosthetic valves 2.5-3.5 Performed By: #### M G, GFR, ANEU, ADIFF, CBC, CMP, A1C, LIPID #### [address] [address] PT Coag (PPP) [Time] 13.4 s Normal 9.0-14.4 [facility] Comment on above: Result Comment: Effe ctive 12/11/07, Protime results may be affected by some antibiotics (i.e. Ciprofloxacin, Azithromycin, Bactrim) which may potentiate the action of oral anticoagulants, with further increases in Protime/INR. Performed By: #### M G, GFR, ANEU, ADIFF, CBC, CMP, A1C, LIPID #### [place] [id number] [place] [address] PT Coag (PPP) [Time] 13.5 s Normal 9.0-14.4 [facility] Comment on above: Performed By: #### A ELY LLAMAS, PRO, TROPHS, GFR, ANEU, CBC, PBNP, BMP ####[facility] [place] [facility] [place], [place] [address] PT International Ratio 1.2 Normal [facility] Comment on above: Result Comment: [employer] (CHEST, 1992, 102:312S-25S) recommended therapeutic range for oral anticoagulant therapy is: LOW RISK: Prophylaxis of venous thrombosis INR: 2.0-3.0 Treatment of pulmonary embolism 2.0-3.0 Prevention of systemic embolism 2.0-3.0 HIGH RISK: Mechanical prosthetic valves 2.5-3.5 Performed By: #### A ELY LLAMAS, PRO, TROPHS, GFR, ANEU, CBC, PBNP, BMP ####[facility] [place] [facility] [place], [place] [address] [facility]AQUAHSon 10-02-2024 High Sensitivity Troponin I 6 ng/L Normal 0-54 [facility] Comment on above: Result Comment: High Sensitive Troponin I Reference Ranges: Female: 0-34 ng/L Male: 0-54 ng/L Testing performed on Stabilite[employer] analyzer using direct chemiluminescent technology. Performed By: #### M G, GFR, ANEU, ADIFF, CBC, CMP, A1C, LIPID #### [address] [address] High Sensitivity Troponin I 9 ng/L Normal 0-76 [facility] Comment on above: Result Comment: High Sensitive Troponin I Reference Ranges: Female: 0-51 ng/L Male: 0-76 ng/L Testing performed on Dimension EXL using a homogeneous sandwich chemiluminescent immunoassay based on [employer] technology. Performed By: #### T ROP ####[id number] [place], [place] [address] High Sensitivity Troponin I 9 ng/L Normal 0-76 [facility] Comment on above: Result Comment: High Sensitive Troponin I Reference Ranges: Female: 0-51 ng/L Male: 0-76 ng/L Testing performed on Dimension EXL using a homogeneous sandwich chemiluminescent immunoassay based on [employer] technology. Performed By: #### A DIFF, MDW, PRO, TROPHS, GFR, ANEU, CBC, PBNP, BMP ####[id number] [place], [place] [address] TSHon 10-02-2024 TSH 1.923 mIU/mL Normal 0.550-4.780 [facility] Comment on above: Performed By: #### M G, GFR, ANEU, ADIFF, CBC, CMP, A1C, LIPID #### [address] [address] XR CHEST 1 VIEWon 10-02-2024 XR CHEST [...] 10/02/2024 2:02:33 AM Ordering Provider: DELORES MURO [facility] XR ANKLE MINIMUM 3 VIEWS LEF [...] 08/29/2024 3:52:38 PM Ordering Provider: EDER FARFAN [facility] XR CHEST 2 VIEWSon XR CHEST [...] Date: 08/29/2024 4:51:29 PM Ordering Provider: ISADORA Kate [facility] .Auto Diffon 08-13-2024 Basophil, Absolute 0.0 10 3/mcL Normal 0.0-0.2 [facility] Comment on above: Performed By: #### A ERIC, GFR, CBC, CMP, PBNP, ADIFF, ELY BOLES ####[facility] [place] [facility] [place], [place] [address] Basophils/100 WBC (Bld) 0.7 % Normal 0.0-2.5 [facility] Comment on above: Performed By: #### A ERIC, GFR, CBC, CMP, PBNP, ADIFF, ELY BOLES ####[address] [place], [place] [address] Eosinophil, Absolute 0.1 10 3/mcL Normal 0.0-0.[address] [facility] Comment on above: Performed By: #### A ERIC, GFR, CBC, CMP, PBNP, ADRAMANA MARTÍNEZ MDW ####[address] [place], [place] [address] Eosinophils/100 WBC (Bld) 1.3 % Normal 0.0-7.0 [facility] Comment on above: Performed By: #### A ERIC, GFR, CBC, CMP, PBNP, ADRAMANA MARTÍNEZ MDW ####[address] [place], [place] [address] Lymphocyte, Absolute 0.8 10 3/mcL Low 0.9-4.[address] [facility] Comment on above: Performed By: #### A ERIC, GFR, CBC, CMP, PBNP, ADRAMANA MARTÍNEZ MDW ####[address] [place], [place] [address] Lymphocytes/100 WBC (Bld) 19.9 % Low 20.0-40.0 [facility] Comment on above: Performed By: #### A ERIC, GFR, CBC, CMP, PBNP, ADIFF, TROPHS, MDW ####[address] [place], [place] [address] Monocyte, Absolute 0.3 10 3/mcL Normal 0.1-1.4 [facility] Comment on above: Performed By: #### A ERIC, GFR, CBC, CMP, PBNP, ESSIE, ELY BOLES ####[address] [place], [place] [address] Monocytes/100 WBC (Bld) 6.9 % Normal 2.0-13.0 [facility] Comment on above: Performed By: #### A ERIC, GFR, CBC, CMP, PBNP, RAMANA FOUNTAIN MDW ####[address] [place], [place] [address] Neutrophils/100 WBC (Bld) 71.2 % Normal 50.0-75.0 [facility] Comment on above: Performed By: #### A ERIC, GFR, CBC, CMP, PBNP, ADRAMANA MARTÍNEZ MDW ####[address] [place], [place] [address] .GFRon 08-13-2024 Estimated Glomerular Filtration Rate 107 ml/min/1.73sqm Normal [facility] Comment on above: Result Comment: Stages of [...] A ERIC, GFR, CBC, CMP, PBNP, ADMAURICIO, RAMANA, ELY ####[address] [place], [place] [address] .MDWon 08-13-2024 Monocyte Distribution Width 19.39 Normal 0.00-20.00 [facility] Comment on above: Result Comment: For ED adult patients suspected of sepsis, MDW<=20.0 does not rule out sepsis or risk of sepsis Performed By: #### A ERIC, GFR, CBC, CMP, PBNP, RAMANA FOUNTAIN MDW ####[address] [place], [place] [address] .NEUABSon 08-13-2024 Neutrophil, Absolute 2.9 10 3/mcL Normal 2.3-8.[address] [facility] Comment on above: Performed By: #### A ERIC, GFR, CBC, CMP, PBBAY, RAMANA FOUNTAIN MDW ####[address] [place] [address] CBCon 08-13-2024 Erythrocyte distribution width (RBC) [Ratio] 17.1 % High 11.5-15.5 [facility] Comment on above: Performed By: #### A ERIC, GFR, CBC, CMP, PBNP, RAMANA FOUNTAIN MDW ####[address] [address] Hematocrit (Bld) [Volume fraction] 42.8 % Normal 40.0-52.0 [facility] Comment on above: Performed By: #### A ERIC, GFR, CBC, CMP, PBNP, RAMANA FOUNTAIN MDW ####[place] [address] [place] [id number] Hgb 14.0 G/dL Normal 13.0-17.5 [facility] Comment on above: Performed By: #### A ERIC, GFR, CBC, CMP, PBNP, RAMANA FOUNTAIN MDW ####[place] [address] [place] [address] MCH (RBC) [Entitic mass] 27.9 pg Normal 27.0-33.0 [facility] Comment on above: Performed By: #### A ERIC, GFR, CBC, CMP, PBNP, RAMANA FOUNTAIN MDW ####[address] [place] [address] MCHC 32.8 G/dL Normal 32.0-36.0 [facility] Comment on above: Performed By: #### A ERIC, GFR, CBC, CMP, PBESSIE HERMOSILLO TROPHS, MDW ####[address] [place], [place] [address] MCV (RBC) [Entitic vol] 84.9 fL Normal 81.0-100.0 [facility] Comment on above: Performed By: #### A ERIC, GFR, CBC, CMP, PBNP, RAMANA FOUNTAIN MDW ####[address] [place], [place] [address] Platelet 137 10 3/mcL Low 150-450 [facility] Comment on above: Performed By: #### A ERIC, GFR, CBC, CMP, PBNP, RAMANA FOUNTAIN MDW ####[address] [place], [place] [address] Platelet mean volume (Bld) [Entitic vol] 6.7 fL Normal 6.4-10.5 [facility] Comment on above: Performed By: #### A ERIC, GFR, CBC, CMP, PBESSIE HERMOSILLO TROPHS, MDW ####[address] [place], [place] [address] RBC 5.04 10 6/mcL Normal 4.50-6.00 [facility] Comment on above: Performed By: #### A ERIC, GFR, CBC, CMP, PBESSIE HERMOSILLO TROPHS, MDW ####[address] [place], [place] [address] WBC 4.1 10 3/mcL Low 4.5-10.8 [facility] Comment on above: Performed By: #### A ERIC, GFR, CBC, CMP, PBNP, RAMANA FOUNTAIN MDW ####[address] [place], [place] [address] CMPon 08-13-2024 Albumin Level 3.3 G/dL Low 3.5-5.0 [facility] Comment on above: Performed By: #### A ERIC, GFR, CBC, CMP, PBNP, RAMANA FOUNTAIN MDW ####[place] [address] Albumin/Globulin [Mass ratio] 0.8 {ratio} Low 1.1-2.5 [facility] Comment on above: Performed By: #### A ERIC, GFR, CBC, CMP, PBNP, RAMANA FOUNTAIN MDW ####[address] [place] [address] ALP [Catalytic activity/Vol] 76 U/L Normal 40-135 [facility] Comment on above: Performed By: #### A ERIC, GFR, CBC, CMP, PBNP, RAMANA FOUNTAIN MDW ####[place] [address] ALT [Catalytic activity/Vol] 10 U/L Low 16-63 [facility] Comment on above: Performed By: #### A ERIC, GFR, CBC, CMP, PBNP, RAMANA FOUNTAIN MDW ####[place] [address] AST [Catalytic activity/Vol] 14 U/L Normal 10-40 [facility] Comment on above: Performed By: #### A ERIC, GFR, CBC, CMP, PBNP, RAMANA FOUNTAIN MDW ####[address] [place] [address] Bili Total 0.4 mg/dL Normal 0.2-1.0 [facility] Comment on above: Result Comment: Use of this assay is not recommended for patients undergoing treatment with eltrombopag due to the potential for falsely elevated results. Performed By: #### A ERIC, GFR, CBC, CMP, PBNP, RAMANA FOUNTAIN MDW ####[address] [address] [place] [address] BUN/Creatinine Ratio 13 ratio Normal 7-27 [facility] Comment on above: Performed By: #### A ERIC, GFR, CBC, CMP, PBNP, RAMANA FOUNTAIN MDW ####[place] [id number] Calcium [Mass/Vol] 8.6 mg/dL Normal 8.4-10.2 [facility] Comment on above: Performed By: #### A ERIC, GFR, CBC, CMP, PBBAY, RAMANA FOUNTAIN MDW ####[address] [place], [place] [address] Chloride [Moles/Vol] 101 mmol/L Normal 98-107 [facility] Comment on above: Performed By: #### A ERIC, GFR, CBC, CMP, PBNP, RAMANA FOUNTAIN MDW ####[address] [place], [place] [address] CO2 [Moles/Vol] 35 mmol/L High 22-29 [facility] Comment on above: Performed By: #### A ERIC, GFR, CBC, CMP, PBBAY, RAMANA FOUNTAIN MDW ####[address] [place], [place] [address] Creatinine [Mass/Vol] 0.78 mg/dL Normal 0.70-1.30 [facility] Comment on above: Result Comment: Test ing performed on Siemens Dimension EXL analyzer using a modified kinetic Ciera technique. Performed By: #### A ERIC, GFR, CBC, CMP, PBBAY, RAMANA FOUNTAIN MDW ####[address] [place], [place] [address] Electrolyte Balance 2.0 mEq/L Low 4.0-15.0 [facility] Comment on above: Performed By: #### A ERIC, GFR, CBC, CMP, PBNP, RAMANA FOUNTAIN MDW ####[address] [place], [place] [address] Globulin 3.9 G/dL High 1.5-3.8 [facility] Comment on above: Performed By: #### A ERIC, GFR, CBC, CMP, PBNP, RAMANA FOUNTAIN MDW ####[address] [place], [place] [address] Glucose [Mass/Vol] 105 mg/dL Normal 70-105 [facility] Comment on above: Performed By: #### A ERIC, GFR, CBC, CMP, PBNP, RAMANA FOUNTAIN MDW ####[address] [place], [place] [address] Potassium [Moles/Vol] 3.8 mmol/L Normal 3.5-5.1 [facility] Comment on above: Performed By: #### A EIRC, GFR, CBC, CMP, PBNP, RAMANA FOUNTAIN MDW ####[address] [place], [place] [address] Sodium [Moles/Vol] 138 mmol/L Normal 136-145 [facility] Comment on above: Performed By: #### A ERIC, GFR, CBC, CMP, PBNP, RAMANA FOUNTAIN MDW ####[address] [place] [address] Total Protein 7.2 G/dL Normal 6.4-8.2 [facility] Comment on above: Performed By: #### A ERIC, GFR, CBC, CMP, PBNP, RAMANA FOUNTAIN MDW ####[address] [place] [address] Urea nitrogen [Mass/Vol] 10 mg/dL Normal 7-18 [facility] Comment on above: Performed By: #### A ERIC, GFR, CBC, CMP, PBNP, RAMANA FOUNTAIN MDW ####[address] [place] [address] CVFLURVon 08-13-2024 FLU A PCR Negative Normal Negative [facility] Comment on above: Performed By: #### C VFLURV ####[address] [place], [place] [address] FLU B PCR Negative Normal Negative [facility] Comment on above: Performed By: #### C VFLURV ####[address] [place] [address] RSV PCR Negative Normal Negative [facility] Comment on above: Performed By: #### C VFLURV ####[place] [address] SARS-CoV-2 (COVID-19) RNA ROSE+probe Ql (Unsp spec) Negative Normal Negative [facility] Comment on above: Result Comment: Resu lts [...] positive results. Performed By: #### C VFLURV ####[address] [place], [place] [address] PBNPon 08-13-2024 Natriuretic peptide B (Bld) [Mass/Vol] 456 pg/mL High 0-125 [facility] Comment on above: Result Comment: NT-p roBNP results of less than 300 pg/mL effectively rules out acute congestive heart failure with 99% negative predictive value. Performed By: #### A ERIC, GFR, CBC, CMP, PBNP, RAMANA FOUNTAIN MDW ####[address] [place], [place] [address] TROPHSon 08-13-2024 High Sensitivity Troponin I 8 ng/L Normal 0-76 [facility] Comment on above: Result Comment: High Sensitive Troponin I Reference Ranges: Female: 0-51 ng/L Male: 0-76 ng/L Testing performed on 2sms using a homogeneous sandwich chemiluminescent immunoassay based on [employer] technology. Performed By: #### A ERIC, GFR, CBC, CMP, PBNP, ESSIE, ELY BOLES ####[address] [place], [place] [address] XR CHEST 1 VIEWon 08-13-2024 XR CHEST [...] 08/13/2024 11:55:14 AM Ordering Provider: WILNER JOE [facility] .GFRon 05-14-2024 GFR Non- 90 ml/min/1.73sqm [facility] Comment on above: Result Comment: GFR [...] By: #### G FR, LIPID, A1C, CMP ####[address] [place], [place] [address] GFR 109 ml/min/1.73sqm [facility] Comment on above: Result Comment: GFR [...] G FR, LIPID, A1C, CMP ####[address] [place], [place] [address] A1Con 05-14-2024 Glucose [Mass/Vol] 120 mg/dL Normal [facility] Comment on above: Result Comment: Zahida mated Average Glucose calculated by equation ((28.7xA1C)-46.7) Estimated average glucose (eAG) is a calculated value from Hemoglobin A1C and is group sales representative of the average blood glucose level in the last 2-3 month period. Normal range: less than 114 mg/dL Performed By: #### G FR, LIPID, A1C, CMP ####[address] [place], [place] [address] HbA1c (Bld) [Mass fraction] 5.8 % Normal 4.3-6.4 [facility] Comment on above: Performed By: #### G FR, LIPID, A1C, CMP ####[address] [place], [place] [address] CMPon 05-14-2024 Albumin Level 3.4 G/dL Low 3.5-5.0 [facility] Comment on above: Performed By: #### G FR, LIPID, A1C, CMP ####[address] [place], [place] [address] Albumin/Globulin [Mass ratio] 0.9 {ratio} Low 1.1-2.5 [facility] Comment on above: Performed By: #### G FR, LIPID, A1C, CMP ####[address] [place], [place] [address] ALP [Catalytic activity/Vol] 87 U/L Normal 40-135 [facility] Comment on above: Performed By: #### G FR, LIPID, A1C, CMP ####[address] [place], [place] [address] ALT [Catalytic activity/Vol] 17 U/L Normal 16-63 [facility] Comment on above: Performed By: #### G FR, LIPID, A1C, CMP ####[address] [place], [place] [address] AST [Catalytic activity/Vol] 12 U/L Normal 10-40 [facility] Comment on above: Performed By: #### G FR, LIPID, A1C, CMP ####[address] [place], [place] [address] Bili Total 0.3 mg/dL Normal 0.2-1.0 [facility] Comment on above: Result Comment: Use of this assay is not recommended for patients undergoing treatment with eltrombopag due to the potential for falsely elevated results. Performed By: #### G FR, LIPID, A1C, CMP ####[address] [place], [place] [address] BUN/Creatinine Ratio 15 ratio Normal 7-27 [facility] Comment on above: Performed By: #### G FR, LIPID, A1C, CMP ####[address] [place], [place] [address] Calcium [Mass/Vol] 8.9 mg/dL Normal 8.4-10.2 [facility] Comment on above: Performed By: #### G FR, LIPID, A1C, CMP ####[address] [place], [place] [address] Chloride [Moles/Vol] 101 mmol/L Normal 98-107 [facility] Comment on above: Performed By: #### G FR, LIPID, A1C, CMP ####[address] [place], [place] [address] CO2 [Moles/Vol] 34 mmol/L High 22-29 [facility] Comment on above: Performed By: #### G FR, LIPID, A1C, CMP ####[address] [place], [place] [address] Creatinine [Mass/Vol] 0.89 mg/dL Normal 0.70-1.30 [facility] Comment on above: Result Comment: Test ing performed on Siemens Dimension EXL analyzer using a modified kinetic Ciera technique. Performed By: #### G FR, LIPID, A1C, CMP ####[address] [place], [place] [address] Electrolyte Balance 5.0 mEq/L Normal 4.0-15.0 [facility] Comment on above: Performed By: #### G FR, LIPID, A1C, CMP ####[address] [place], [place] [address] Globulin 3.8 G/dL Normal [facility] Comment on above: Performed By: #### G FR, LIPID, A1C, CMP ####[address] [place], [place] [address] Glucose [Mass/Vol] 99 mg/dL Normal 70-105 [facility] Comment on above: Performed By: #### G FR, LIPID, A1C, CMP ####[address] [place], [place] [address] Potassium [Moles/Vol] 4.0 mmol/L Normal 3.5-5.1 [facility] Comment on above: Performed By: #### G FR, LIPID, A1C, CMP ####[address] [place], [place] [address] Sodium [Moles/Vol] 140 mmol/L Normal 136-145 [facility] Comment on above: Performed By: #### Abbey FR, LIPID, A1C, CMP ####[address] [place], [place] [address] Total Protein 7.2 G/dL Normal 6.4-8.2 [facility] Comment on above: Performed By: #### G FR, LIPID, A1C, CMP ####[address] [place], [place] [address] Urea nitrogen [Mass/Vol] 13 mg/dL Normal 7-18 [facility] Comment on above: Performed By: #### G FR, LIPID, A1C, CMP ####[address] [place], [place] [address] LABORATORYOrdered By: SYSTEM SYSTEM on 05-14-2024 Albumin [...] calculated value from Hemoglobin A1C and is group sales representative of the average blood glucose level [...] 05-14-2024 Cholesterol [Mass/Vol] 144 mg/dL Normal 0-200 [facility] Comment on above: Result Comment: Chol esterol Reference Interval: Less than 200 Desirable 200-239 Borderline high risk 240 and above High risk Performed By: #### G FR, LIPID, A1C, CMP ####[address] [place], [place] [address] Cholesterol in HDL [Mass/Vol] 24 mg/dL Low 40-60 [facility] Comment on above: Performed By: #### G FR, LIPID, A1C, CMP ####[address] [place], [place] [address] Cholesterol in LDL [Mass/Vol] 72 mg/dL Normal 0-130 [facility] Comment on above: Performed By: #### G FR, LIPID, A1C, CMP ####[address] [place], [place] [address] Triglyceride [Mass/Vol] 242 mg/dL High 0-150 [facility] Comment on above: Result Comment: Trig lyceride Reference Interval: Less than 150 Normal 150-199 Borderline high risk 200-499 High risk 500 or higher Very high risk Performed By: #### G FR, LIPID, A1C, CMP ####[address] [place], [place] [address] Final Surgical Pathology Rep [facility] 03-27-2024 Final Surgical Pathology Report . Pathology Reports Accession: Collected Date/Time: Received Date/Time: Pathologist: [id number] 03/25/2024 15:47 EDT 03/26/2024 07:38 EDT COREY WILBURN MD Final Surgical Pathology Report DIAGNOSIS: RIGHT ARM EXCISION: - GLOMANGIOMYOMA CLINICAL INFORMATION: SKIN LESION Procedure: EXCISION Preoperative diagnosis: SKIN LESION Postoperative diagnosis: SKIN LESION SPECIMEN: A RIGHT ARM GROSS DESCRIPTION: All parts labelled with patient name and [id number] Received in formalin labelled right arm excision Is a unoriented ellipse of skin measuring 1.5 x 0.4 and excised to depth of 1.2 cm. Excision margin inked black. Skin surface grossly unremarkable, located within the underlying soft tissue is a santillan firm well-circumscribed possible mass/lymph node measuring 0.6 x 0.6 x 0.6 cm. TS-2 Austin Somers, Pathologists' Livestock [employer] (ASCP) Performed by [facility] S[facility]ERS MICROSCOPIC DESCRIPTION: The microscopic examination is performed, except in the case of Gross Only. Electronically Signed by Pathology Report verified by [facility] COREY WILBURN Sign out Date: 03/27/2024 16:10 Performing Lab: [facility], [address] [place] [address] Pathology Dept Disclaimer If ancillary studies were [...] regarded as investigational or for research. Normal [facility] US SOFT TISSUE MASS OF RT AR [...] Date: 02/18/2024 11:09:23 AM Ordering Provider: ISADORA Kate [facility] TSHon 02-15-2024 TSH Qn 1.65 m[IU]/L Normal 0.36-3.74 [facility] Comment on above: Performed By: #### T ####[address] [address] .GFRon 02-12-2024 GFR 95 ml/min/1.73sqm Normal [facility] Comment on above: Result Comment: GFR Population [...] P SA, CMP, GFR, LIPID, A1C #### [place] [address] [place] [id number] GFR Non- 78 ml/min/1.73sqm Normal [facility] Comment on above: Result Comment: GFR Population [...] P SA, CMP, GFR, LIPID, A1C #### [address] [address] A1Con 02-12-2024 Glucose [Mass/Vol] 131 mg/dL Normal [facility] Comment on above: Result Comment: Zahida mated Average Glucose calculated by equation ((28.7xA1C)-46.7) Estimated average glucose (eAG) is a calculated value from Hemoglobin A1C and is group sales representative of the average blood glucose level in the last 2-3 month period. Normal range: less than 114 mg/dL Performed By: #### P SA, CMP, GFR, LIPID, A1C #### [address] [address] HbA1c (Bld) [Mass fraction] 6.2 % Normal 4.3-6.4 [facility] Comment on above: Performed By: #### P SA, CMP, GFR, LIPID, A1C #### [address] [address] CMPon 02-12-2024 Albumin Level 3.3 G/dL Low 3.5-5.0 [facility] Comment on above: Performed By: #### P SA, CMP, GFR, LIPID, A1C #### [address] [address] Albumin/Globulin [Mass ratio] 0.9 {ratio} Low 1.1-2.5 [facility] Comment on above: Performed By: #### P SA, CMP, GFR, LIPID, A1C #### [address] [address] ALP [Catalytic activity/Vol] 74 U/L Normal 40-135 [facility] Comment on above: Performed By: #### P SA, CMP, GFR, LIPID, A1C #### [address] [address] ALT [Catalytic activity/Vol] 20 U/L Normal 16-63 [facility] Comment on above: Performed By: #### P SA, CMP, GFR, LIPID, A1C #### [address] [address] AST [Catalytic activity/Vol] 13 U/L Normal 10-40 [facility] Comment on above: Performed By: #### P SA, CMP, GFR, LIPID, A1C #### [address] [address] Bili Total 0.5 mg/dL Normal 0.2-1.0 [facility] Comment on above: Result Comment: Use of this assay is not recommended for patients undergoing treatment with eltrombopag due to the potential for falsely elevated results. Performed By: #### P SA, CMP, GFR, LIPID, A1C #### [address] [address] BUN/Creatinine Ratio 6 ratio Low 7-27 [facility] Comment on above: Performed By: #### P SA, CMP, GFR, LIPID, A1C #### [address] [address] Calcium [Mass/Vol] 8.5 mg/dL Normal 8.4-10.2 [facility] Comment on above: Performed By: #### P SA, CMP, GFR, LIPID, A1C #### [address] [address] Chloride [Moles/Vol] 100 mmol/L Normal 98-107 [facility] Comment on above: Performed By: #### P SA, CMP, GFR, LIPID, A1C #### [address] [address] CO2 [Moles/Vol] 34 mmol/L High 22-29 [facility] Comment on above: Performed By: #### P SA, CMP, GFR, LIPID, A1C #### [address] [address] Creatinine [Mass/Vol] 1.00 mg/dL Normal 0.70-1.30 [facility] Comment on above: Result Comment: Test ing performed on Siemens Dimension EXL analyzer using a modified kinetic Ciera technique. Performed By: #### P SA, CMP, GFR, LIPID, A1C #### [address] [address] Electrolyte Balance 4.0 mEq/L Normal 4.0-15.0 [facility] Comment on above: Performed By: #### P SA, CMP, GFR, LIPID, A1C #### [address] [address] Globulin 3.8 G/dL Normal [facility] Comment on above: Performed By: #### P SA, CMP, GFR, LIPID, A1C #### [address] [address] Glucose [Mass/Vol] 80 mg/dL Normal 70-105 [facility] Comment on above: Performed By: #### P SA, CMP, GFR, LIPID, A1C #### [address] [address] Potassium [Moles/Vol] 4.3 mmol/L Normal 3.5-5.1 [facility] Comment on above: Performed By: #### P SA, CMP, GFR, LIPID, A1C #### [address] [address] Sodium [Moles/Vol] 138 mmol/L Normal 136-145 [facility] Comment on above: Performed By: #### P SA, CMP, GFR, LIPID, A1C #### [address] [address] Total Protein 7.1 G/dL Normal 6.4-8.2 [facility] Comment on above: Performed By: #### P SA, CMP, GFR, LIPID, A1C #### [address] [place], [place] [address] Urea nitrogen [Mass/Vol] 6 mg/dL Low 7-18 [facility] Comment on above: Performed By: #### P SA, CMP, GFR, LIPID, A1C #### [place] [place], [place] [address] LABORATORYOrdered By: SYSTEM SYSTEM on 02-12-2024 Albumin [...] calculated value from Hemoglobin A1C and is group sales representative of the average blood glucose level [...] 02-12-2024 Cholesterol [Mass/Vol] 117 mg/dL Normal 0-200 [facility] Comment on above: Result Comment: Chol esterol Reference Interval: Less than 200 Desirable 200-239 Borderline high risk 240 and above High risk Performed By: #### P SA, CMP, GFR, LIPID, A1C #### [address] [address] Cholesterol in HDL [Mass/Vol] 25 mg/dL Low 40-60 [facility] Comment on above: Performed By: #### P SA, CMP, GFR, LIPID, A1C #### [place] [place], [place] [address] Cholesterol in LDL [Mass/Vol] 53 mg/dL Normal 0-130 [facility] Comment on above: Performed By: #### P SA, CMP, GFR, LIPID, A1C #### [address] [address] Triglyceride [Mass/Vol] 196 mg/dL High 0-150 [facility] Comment on above: Result Comment: Trig lyceride Reference Interval: Less than 150 Normal 150-199 Borderline high risk 200-499 High risk 500 or higher Very high risk Performed By: #### P SA, CMP, GFR, LIPID, A1C #### [address] [address] PSAon 02-12-2024 Prostate Specific Antigen 0.25 ng/mL Normal 0.00-4.00 [facility] Comment on above: Performed By: #### P SA, CMP, GFR, LIPID, A1C #### [address] [address] .Auto Diffon 02-01-2024 Basophil, Absolute 0.1 10 3/mcL Normal 0.0-0.3 [facility] ([place]) Comment on above: Performed By: #### A DIFF, TROPHS, GFR, BMP, MDW, CBC, PBNP, ANEU #### [address] [address] Basophils/100 WBC (Bld) 0.8 % Normal 0.0-2.5 [facility] ([place]) Comment on above: Performed By: #### A DIFF, TROPHS, GFR, BMP, MDW, CBC, PBNP, ANEU #### [address] [address] Eosinophil, Absolute 0.1 10 3/mcL Normal 0.0-0.7 [facility] ([place]) Comment on above: Performed By: #### A DIFF, TROPHS, GFR, BMP, MDW, CBC, PBNP, ANEU #### [address] [address] Eosinophils/100 WBC (Bld) 1.2 % Normal 0.0-6.0 [facility] ([place]) Comment on above: Performed By: #### A DIFF, TROPHS, GFR, BMP, MDW, CBC, PBNP, ANEU #### [address] [address] Lymphocyte, Absolute 1.4 10 3/mcL Normal 0.9-4.3 [facility] ([place]) Comment on above: Performed By: #### A DIFF, TROPHS, GFR, BMP, MDW, CBC, PBNP, ANEU #### [address] [address] Lymphocytes/100 WBC (Bld) 19.9 % Low 20.0-40.0 [facility] ([place]) Comment on above: Performed By: #### A DIFF, TROPHS, GFR, BMP, MDW, CBC, PBNP, ANEU #### [address] [address] Monocyte, Absolute 0.7 10 3/mcL Normal 0.1-1.4 [facility] ([place]) Comment on above: Performed By: #### A DIFF, TROPHS, GFR, BMP, MDW, CBC, PBNP, ANEU #### [address] [address] Monocytes/100 WBC (Bld) 9.4 % Normal 2.0-13.0 [facility] ([place]) Comment on above: Performed By: #### A DIFF, TROPHS, GFR, BMP, MDW, CBC, PBNP, ANEU #### [address] [address] Neutrophils/100 WBC (Bld) 68.7 % Normal 50.0-75.0 [facility] ([place]) Comment on above: Performed By: #### A DIFF, TROPHS, GFR, BMP, MDW, CBC, PBNP, ANEU #### [address] [address] .GFRon 02-01-2024 GFR >60 Normal [facility] ([place]) Comment on above: Result Comment: GFR Population [...] GFR, BMP, MDW, CBC, PBNP, ANEU #### [address] [address] GFR Non- >60 Normal [facility] ([place]) Comment on above: Result Comment: GFR Population [...] GFR, BMP, MDW, CBC, PBNP, ANEU #### [address] [address] .NEUABSon 02-01-2024 Neutrophil, Absolute 4.8 10 3/mcL Normal 2.3-8.1 [facility] ([place]) Comment on above: Performed By: #### A DIFF, TROPHS, GFR, BMP, MDW, CBC, PBNP, ANEU #### [address] [address] APTTon 02-01-2024 aPTT Coag (Bld) [Time] 47.1 s High 25.0-35.0 [facility] ([place]) Comment on above: Result Comment: For Heparin anticoagulation therapy, the recommended therapeutic range is: 54-77 seconds (APTT Correlation with Anti-Xa therapeutic range of 0.3-0.7 units/ml). PLEASE REFERENCE THE PHARMACY PROTOCOL FOR DOSING. Performed By: #### A DIFF, TROPHS, GFR, BMP, MDW, CBC, PBNP, ANEU #### [address] [address] aPTT Coag (Bld) [Time] 46.1 s High 25.0-35.0 [facility] ([place]) Comment on above: Result Comment: For Heparin anticoagulation therapy, the recommended therapeutic range is: 54-77 seconds (APTT Correlation with Anti-Xa therapeutic range of 0.3-0.7 units/ml). PLEASE REFERENCE THE PHARMACY PROTOCOL FOR DOSING. Performed By: #### A DIFF, TROPHS, GFR, BMP, MDW, CBC, PBNP, ANEU #### [address] [address] BMPon 02-01-2024 BUN/Creatinine Ratio 14.8 ratio Normal 10.0-22.0 [facility] ([place]) Comment on above: Performed By: #### A DIFF, TROPHS, GFR, BMP, MDW, CBC, PBNP, ANEU #### [address] [address] Calcium [Mass/Vol] 8.8 mg/dL Normal 8.7-10.4 [facility] ([place]) Comment on above: Performed By: #### A DIFF, TROPHS, GFR, BMP, MDW, CBC, PBNP, ANEU #### [address] [address] Chloride [Moles/Vol] 100 mmol/L Normal 98-110 [facility] ([place]) Comment on above: Performed By: #### A DIFF, TROPHS, GFR, BMP, MDW, CBC, PBNP, ANEU #### [address] [address] CO2 [Moles/Vol] 32 mmol/L Normal 22-32 [facility] ([place]) Comment on above: Performed By: #### A DIFF, TROPHS, GFR, BMP, MDW, CBC, PBNP, ANEU #### [address] [address] Creatinine [Mass/Vol] 1.15 mg/dL Normal 0.60-1.40 [facility] ([place]) Comment on above: Result Comment: Test ing performed on [employer] IT analyzer using enzymatic creatinine methodology. Performed By: #### A DIFF, TROPHS, GFR, BMP, MDW, CBC, PBNP, ANEU #### [address] [address] Electrolyte Balance 5.0 mEq/L Normal 4.0-15.0 [facility] ([place]) Comment on above: Performed By: #### A DIFF, TROPHS, GFR, BMP, MDW, CBC, PBNP, ANEU #### [address] [address] Glucose [Mass/Vol] 124 mg/dL High 70-110 [facility] ([place]) Comment on above: Performed By: #### A DIFF, TROPHS, GFR, BMP, MDW, CBC, PBNP, ANEU #### [address] [address] Potassium [Moles/Vol] 3.4 mmol/L Low 3.5-5.0 [facility] ([place]) Comment on above: Performed By: #### A DIFF, TROPHS, GFR, BMP, MDW, CBC, PBNP, ANEU #### [address] [address] Sodium [Moles/Vol] 137 mmol/L Normal 136-145 [facility] ([place]) Comment on above: Performed By: #### A DIFF, TROPHS, GFR, BMP, MDW, CBC, PBNP, ANEU #### [address] [address] Urea nitrogen [Mass/Vol] 17.0 mg/dL Normal 8.0-22.0 [facility] ([place]) Comment on above: Performed By: #### A DIFF, TROPHS, GFR, BMP, MDW, CBC, PBNP, ANEU #### [address] [address] CBCon 02-01-2024 Erythrocyte distribution width (RBC) [Ratio] 16.2 % High 11.5-15.5 [facility] ([place]) Comment on above: Performed By: #### A DIFF, TROPHS, GFR, BMP, MDW, CBC, PBNP, ANEU #### [address] [address] Hematocrit (Bld) [Volume fraction] 40.5 % Normal 40.0-52.0 [facility] ([place]) Comment on above: Performed By: #### A DIFF, TROPHS, GFR, BMP, MDW, CBC, PBNP, ANEU #### [address] [address] Hgb 13.0 G/dL Normal 13.0-17.5 [facility] ([place]) Comment on above: Performed By: #### A DIFF, TROPHS, GFR, BMP, MDW, CBC, PBNP, ANEU #### [address] [address] MCH (RBC) [Entitic mass] 26.0 pg Low 27.0-33.0 [facility] ([place]) Comment on above: Performed By: #### A DIFF, TROPHS, GFR, BMP, MDW, CBC, PBNP, ANEU #### [address] [address] MCHC 32.2 G/dL Normal 32.0-36.0 [facility] ([place]) Comment on above: Performed By: #### A DIFF, TROPHS, GFR, BMP, MDW, CBC, PBNP, ANEU #### [address] [address] MCV (RBC) [Entitic vol] 80.6 fL Low 81.0-100.0 [facility] ([place]) Comment on above: Performed By: #### A DIFF, TROPHS, GFR, BMP, MDW, CBC, PBNP, ANEU #### [address] [address] Platelet 161 10 3/mcL Normal 150-450 [facility] ([place]) Comment on above: Performed By: #### A DIFF, TROPHS, GFR, BMP, MDW, CBC, PBNP, ANEU #### [address] [address] Platelet mean volume (Bld) [Entitic vol] 6.8 fL Normal 6.4-10.5 [facility] ([place]) Comment on above: Performed By: #### A DIFF, TROPHS, GFR, BMP, MDW, CBC, PBNP, ANEU #### [address] [address] RBC 5.02 10 6/mcL Normal 4.50-6.00 [facility] ([place]) Comment on above: Performed By: #### A DIFF, TROPHS, GFR, BMP, MDW, CBC, PBNP, ANEU #### [address] [address] WBC 6.9 10 3/mcL Normal 4.5-10.8 [facility] ([place]) Comment on above: Performed By: #### A DIFF, TROPHS, GFR, BMP, MDW, CBC, PBNP, ANEU #### [address] [address] LABORATORYOrdered By: SYSTEM SYSTEM on 02-01-2024 aPTT [...] 46.1 s High 25.0 - 35.0 seconds AH [...] 0 mEq/L AH ADM SS CO2 [Moles/Vol] 32 mmol/L Normal 22 - 32 mEq/L ADM SS Creatinine [Mass/Vol] 1.15 mg/dL Normal 0.60 - 1.40 mg/dL ADM SS Comment on above: Interpretive Data: T esting performed on [employer] IT analyzer using enzymatic creatinine methodology. Electrolyte Balance [...] 32.2 G/dL Normal 32.0 - 36.0 G/dL AH Workflow SS MCV (RBC) [Entitic vol] 80.6 [...] mEq/L AH ADM SS Urea nitrogen [Mass/Vol] 17.0 mg/dL Normal 8.0 - 22.0 mg/dL AH ADM SS Urea nitrogen/Creatinine [Mass ratio] 14.8 ratio Normal 10.0 - 22.0 ratio AH ADM SS WBC (Bld) [#/Vol] 6.9 103/mcL Normal 4.5 - 10.8 10^3/mcL AH Workflow SS MGon 02-01-2024 Magnesium [Mass/Vol] 2.2 mg/dL Normal 1.6-2.4 [facility] ([place]) Comment on above: Performed By: #### A DIFF, TROPHS, GFR, BMP, MDW, CBC, PBNP, ANEU #### [address] [address] .Auto Diffon 01-31-2024 Basophil, Absolute 0.1 10 3/mcL Normal 0.0-0.3 [facility] ([place]) Comment on above: Performed By: #### A DIFF, TROPHS, GFR, BMP, MDW, CBC, PBNP, ANEU #### [address] [address] Basophils/100 WBC (Bld) 1.0 % Normal 0.0-2.5 [facility] ([place]) Comment on above: Performed By: #### A DIFF, TROPHS, GFR, BMP, MDW, CBC, PBNP, ANEU #### [address] [address] Eosinophil, Absolute 0.1 10 3/mcL Normal 0.0-0.7 [facility] ([place]) Comment on above: Performed By: #### A DIFF, TROPHS, GFR, BMP, MDW, CBC, PBNP, ANEU #### [address] [address] Eosinophils/100 WBC (Bld) 1.1 % Normal 0.0-6.0 [facility] ([place]) Comment on above: Performed By: #### A DIFF, TROPHS, GFR, BMP, MDW, CBC, PBNP, ANEU #### [address] [address] Lymphocyte, Absolute 3.0 10 3/mcL Normal 0.9-4.3 [facility] ([place]) Comment on above: Performed By: #### A DIFF, TROPHS, GFR, BMP, MDW, CBC, PBNP, ANEU #### [address] [address] Lymphocytes/100 WBC (Bld) 22.7 % Normal 20.0-40.0 [facility] ([place]) Comment on above: Performed By: #### A DIFF, TROPHS, GFR, BMP, MDW, CBC, PBNP, ANEU #### [address] [address] Monocyte, Absolute 1.4 10 3/mcL Normal 0.1-1.4 [facility] ([place]) Comment on above: Performed By: #### A DIFF, TROPHS, GFR, BMP, MDW, CBC, PBNP, ANEU #### [address] [address] Monocytes/100 WBC (Bld) 11.0 % Normal 2.0-13.0 [facility] ([place]) Comment on above: Performed By: #### A DIFF, TROPHS, GFR, BMP, MDW, CBC, PBNP, ANEU #### [address] [address] Neutrophils/100 WBC (Bld) 64.2 % Normal 50.0-75.0 [facility] ([place]) Comment on above: Performed By: #### A DIFF, TROPHS, GFR, BMP, MDW, CBC, PBNP, ANEU #### [address] [address] .GFRon 01-31-2024 GFR 46 ml/min/1.73sqm Normal [facility] ([place]) Comment on above: Result Comment: GFR [...] GFR, BMP, MDW, CBC, PBNP, ANEU #### [address] [address] GFR Non- 38 ml/min/1.73sqm Normal [facility] ([place]) Comment on above: Result Comment: GFR Population [...] GFR, BMP, MDW, CBC, PBNP, ANEU #### [address] [address] .NEUABSon 01-31-2024 Neutrophil, Absolute 8.5 10 3/mcL High 2.3-8.1 [facility] ([place]) Comment on above: Performed By: #### A DIFF, TROPHS, GFR, BMP, MDW, CBC, PBNP, ANEU #### [address] [address] APTTon 01-31-2024 aPTT Coag (Bld) [Time] 34.5 s Normal 25.0-35.0 [facility] ([place]) Comment on above: Result Comment: For Heparin anticoagulation therapy, the recommended therapeutic range is: 54-77 seconds (APTT Correlation with Anti-Xa therapeutic range of 0.3-0.7 units/ml). PLEASE REFERENCE THE PHARMACY PROTOCOL FOR DOSING. Performed By: #### A DIFF, TROPHS, GFR, BMP, MDW, CBC, PBNP, ANEU #### [address] [address] aPTT Coag (Bld) [Time] 33.9 s Normal 25.0-35.0 [facility] ([place]) Comment on above: Result Comment: For Heparin anticoagulation therapy, the recommended therapeutic range is: 54-77 seconds (APTT Correlation with Anti-Xa therapeutic range of 0.3-0.7 units/ml). PLEASE REFERENCE THE PHARMACY PROTOCOL FOR DOSING. Performed By: #### A DIFF, TROPHS, GFR, BMP, MDW, CBC, PBNP, ANEU #### [address] [address] aPTT Coag (Bld) [Time] 26.2 s Normal 25.0-35.0 [facility] ([place]) Comment on above: Result Comment: For Heparin anticoagulation therapy, the recommended therapeutic range is: 54-77 seconds (APTT Correlation with Anti-Xa therapeutic range of 0.3-0.7 units/ml). PLEASE REFERENCE THE PHARMACY PROTOCOL FOR DOSING. Performed By: #### A DIFF, TROPHS, GFR, BMP, MDW, CBC, PBNP, ANEU #### [address] [address] CAIONon 01-31-2024 Calcium Ionized 1.07 mmol/L Low 1.12-1.32 [facility] ([place]) Comment on above: Performed By: #### T ROPHS, CMP, CAION, LAC, CBC, ADIFF, GFR, PHOS, MG, ANEU #### [address] [address] CBCon 01-31-2024 Erythrocyte distribution width (RBC) [Ratio] 16.3 % High 11.5-15.5 [facility] ([place]) Comment on above: Performed By: #### A DIFF, TROPHS, GFR, BMP, MDW, CBC, PBNP, ANEU #### [address] [address] Hematocrit (Bld) [Volume fraction] 42.8 % Normal 40.0-52.0 [facility] ([place]) Comment on above: Performed By: #### A DIFF, TROPHS, GFR, BMP, MDW, CBC, PBNP, ANEU #### [address] [address] Hgb 14.0 G/dL Normal 13.0-17.5 [facility] ([place]) Comment on above: Performed By: #### A DIFF, TROPHS, GFR, BMP, MDW, CBC, PBNP, ANEU #### [address] [address] MCH (RBC) [Entitic mass] 25.9 pg Low 27.0-33.0 [facility] ([place]) Comment on above: Performed By: #### A DIFF, TROPHS, GFR, BMP, MDW, CBC, PBNP, ANEU #### [address] [address] MCHC 32.6 G/dL Normal 32.0-36.0 [facility] ([place]) Comment on above: Performed By: #### A DIFF, TROPHS, GFR, BMP, MDW, CBC, PBNP, ANEU #### [place] [address] MCV (RBC) [Entitic vol] 79.5 fL Low 81.0-100.0 [facility] ([place]) Comment on above: Performed By: #### A DIFF, TROPHS, GFR, BMP, MDW, CBC, PBNP, ANEU #### [place] [id number] Platelet 270 10 3/mcL Normal 150-450 [facility] ([place]) Comment on above: Performed By: #### A DIFF, TROPHS, GFR, BMP, MDW, CBC, PBNP, ANEU #### [address] [address] Platelet mean volume (Bld) [Entitic vol] 7.0 fL Normal 6.4-10.5 [facility] ([place]) Comment on above: Performed By: #### A DIFF, TROPHS, GFR, BMP, MDW, CBC, PBNP, ANEU #### [address] [address] RBC 5.39 10 6/mcL Normal 4.50-6.00 [facility] ([place]) Comment on above: Performed By: #### A DIFF, TROPHS, GFR, BMP, MDW, CBC, PBNP, ANEU #### [address] [address] WBC 13.2 10 3/mcL High 4.5-10.8 [facility] ([place]) Comment on above: Performed By: #### A DIFF, TROPHS, GFR, BMP, MDW, CBC, PBNP, ANEU #### [address] [address] CMPon 01-31-2024 Albumin Level 3.0 G/dL Low 3.2-4.8 [facility] ([place]) Comment on above: Performed By: #### A DIFF, TROPHS, GFR, BMP, MDW, CBC, PBNP, ANEU #### [address] [address] Albumin/Globulin [Mass ratio] 0.8 {ratio} Low 0.9-1.6 [facility] ([place]) Comment on above: Performed By: #### A DIFF, TROPHS, GFR, BMP, MDW, CBC, PBNP, ANEU #### [address] [address] ALP [Catalytic activity/Vol] 77 U/L Normal 38-126 [facility] ([place]) Comment on above: Performed By: #### A DIFF, TROPHS, GFR, BMP, MDW, CBC, PBNP, ANEU #### [address] [address] ALT/SGPT <8 Low 12-55 [facility] ([place]) Comment on above: Performed By: #### A DIFF, TROPHS, GFR, BMP, MDW, CBC, PBNP, ANEU #### [address] [address] AST [Catalytic activity/Vol] 12 U/L Normal 8-34 [facility] ([place]) Comment on above: Performed By: #### A DIFF, TROPHS, GFR, BMP, MDW, CBC, PBNP, ANEU #### [address] [address] Bili Total 0.40 mg/dL Normal 0.20-1.20 [facility] ([place]) Comment on above: Result Comment: Use of this assay is not recommended for patients undergoing treatment with eltrombopag due to the potential for falsely elevated results. Performed By: #### A DIFF, TROPHS, GFR, BMP, MDW, CBC, PBNP, ANEU #### [address] [address] BUN/Creatinine Ratio 11.2 ratio Normal 10.0-22.0 [facility] ([place]) Comment on above: Performed By: #### A DIFF, TROPHS, GFR, BMP, MDW, CBC, PBNP, ANEU #### [address] [address] Calcium [Mass/Vol] 8.8 mg/dL Normal 8.7-10.4 [facility] ([place]) Comment on above: Performed By: #### A DIFF, TROPHS, GFR, BMP, MDW, CBC, PBNP, ANEU #### [address] [address] Chloride [Moles/Vol] 100 mmol/L Normal 98-110 [facility] ([place]) Comment on above: Performed By: #### A DIFF, TROPHS, GFR, BMP, MDW, CBC, PBNP, ANEU #### [address] [address] CO2 [Moles/Vol] 29 mmol/L Normal 22-32 [facility] ([place]) Comment on above: Performed By: #### A DIFF, TROPHS, GFR, BMP, MDW, CBC, PBNP, ANEU #### [address] [address] Creatinine [Mass/Vol] 1.87 mg/dL High 0.60-1.40 [facility] ([place]) Comment on above: Result Comment: Test ing performed on [employer] IT analyzer using enzymatic creatinine methodology. Performed By: #### A DIFF, TROPHS, GFR, BMP, MDW, CBC, PBNP, ANEU #### [address] [address] Electrolyte Balance 8.0 mEq/L Normal 4.0-15.0 [facility] ([place]) Comment on above: Performed By: #### A DIFF, TROPHS, GFR, BMP, MDW, CBC, PBNP, ANEU #### [address] [address] Globulin 3.7 G/dL Normal 1.5-3.8 [facility] ([place]) Comment on above: Performed By: #### A DIFF, TROPHS, GFR, BMP, MDW, CBC, PBNP, ANEU #### [address] [address] Glucose [Mass/Vol] 133 mg/dL High 70-110 [facility] ([place]) Comment on above: Performed By: #### A DIFF, TROPHS, GFR, BMP, MDW, CBC, PBNP, ANEU #### [address] [address] Potassium [Moles/Vol] 3.6 mmol/L Normal 3.5-5.0 [facility] ([place]) Comment on above: Performed By: #### A DIFF, TROPHS, GFR, BMP, MDW, CBC, PBNP, ANEU #### [address] [address] Sodium [Moles/Vol] 137 mmol/L Normal 136-145 [facility] ([place]) Comment on above: Performed By: #### A DIFF, TROPHS, GFR, BMP, MDW, CBC, PBNP, ANEU #### [address] [place] [address] Total Protein 6.7 G/dL Normal 5.7-8.2 [facility] ([place]) Comment on above: Result Comment: No te - New Reference Range in effect 19 Performed By: #### A DIFF, TROPHS, GFR, BMP, MDW, CBC, PBNP, ANEU #### [address] [address] Urea nitrogen [Mass/Vol] 21.0 mg/dL Normal 8.0-22.0 [facility] ([place]) Comment on above: Performed By: #### A DIFF, TROPHS, GFR, BMP, MDW, CBC, PBNP, ANEU #### [place] [address] CVFLURVon 01-31-2024 FLU A PCR Negative Normal Negative [facility] ([place]) Comment on above: Result Comment: Note s [id number] Performed By: #### A DIFF, TROPHS, GFR, BMP, MDW, CBC, PBNP, ANEU #### [address] [address] FLU B PCR Negative Normal Negative [facility] ([place]) Comment on above: Result Comment: [place] s [id number] Performed By: #### A DIFF, TROPHS, GFR, BMP, MDW, CBC, PBNP, ANEU #### [address] [address] RSV PCR Negative Normal Negative [facility] ([place]) Comment on above: Result Comment: [place] [id number] Performed By: #### A DIFF, TROPHS, GFR, BMP, MDW, CBC, PBNP, ANEU #### [address] [address] SARS-CoV-2 (COVID-19) RNA ROSE+probe Ql (Unsp spec) Negative Normal Negative [facility] ([place]) Comment on above: Result Comment: Note s [id number] This test has been authorized by FDA [...] BMP, MDW, CBC, PBNP, ANEU #### [place] [address] LABORATORYOrdered By: SYSTEM SYSTEM on 01-31-2024 aPTT Coag (Bld) [Time] 34.5 s Normal 25.0 - 35.0 seconds [facility] [...] above: Interpretive Data: T esting performed on [employer] IT analyzer using enzymatic creatinine methodology. Electrolyte Balance [...] [Vol rate/Area] 46 ml/min/1.73sqm Invalid Interpretation Code ADM SS Comment [...] [Vol rate/Area] 38 ml/min/1.73sqm Invalid Interpretation Code ADM SS Comment [...] G/dL Normal 1.5 - 3.8 G/dL ADM SS Glucose [Mass/Vol] 133 mg/dL High 70 - 110 mg/dL ADM SS Hematocrit (Bld) [Volume fraction] 42.8 % Normal 40.0 - 52.0 % AH Workflow SS Hemoglobin (Bld) [Mass/Vol] 14.0 G/dL Normal 13.0 - 17.5 G/dL AH Workflow SS Lymphocytes (Bld) [#/Vol] 3.0 103/mcL Normal 0.9 - 4.3 10^3/mcL Workflow SS Lymphocytes/100 WBC (Bld) 22.7 % [...] 11.0 % Normal 2.0 - 13.0 % Workflow SS Neutrophils (Bld) [#/Vol] 8.5 103/mcL High 2.3 - 8.1 10^3/mcL Workflow SS Neutrophils/100 WBC (Bld) 64.2 % [...] G/dL Normal 5.7 - 8.2 G/dL ADM Comment on above: Interpretive Data: * *Note - New Reference Range in effect 19 PT Coag (PPP) [Time] 14.7 s High 9.0 - 1 4.4 seconds [facility]TX[facility] Comment on above: Interpretive Data: E ffective 12/11/07, Protime results may be affected by some antibiotics (i.e. Ciprofloxacin, Azithromycin, Bactrim) which may potentiate the action of oral anticoagulants, with further increases in Protime/INR. PT International Ratio 1.3 ratio Invalid Interpretation Code [facility] Comment on above: Interpretive Data: Riley linn [employer] (CHEST, 1992, 102:[id number]) recommended therapeutic range for oral anticoagulant therapy is: LOW RISK: Prophylaxis of venous thrombosis INR: 2.0-3.0 Treatment of pulmonary embolism 2.0-3.0 Prevention of systemic embolism 2.0-3.0 HIGH RISK: Mechanical prosthetic valves 2.5-3.5 RBC (Bld) [#/Vol] 5.39 106/mcL Normal 4.50 - 6.0 0 10^6/mcL Workflow SS Sodium [Moles/Vol] 137 mmol/L Normal 136 - 145 mEq/L ADM SS Troponin I.cardiac DL <= 0.01 ng/mL [Mass/Vol] 4 ng/L Normal 0 - 54 ng/L ADM SS Comment on above: Interpretive Data: High Sensitive Troponin I Reference Ranges: Female: 0-34 ng/L Male: 0-54 ng/L Testing performed on [employer] analyzer using direct chemiluminescent technology. Urea nitrogen [Mass/Vol] 21.0 mg/dL Normal 8.0 - 22.0 mg/dL ADM SS Urea nitrogen/Creatinine [Mass ratio] 11.2 ratio Normal 10.0 - 22.0 ratio ADM SS WBC (Bld) [#/Vol] 13.2 103/mcL High 4.5 - 10.8 10^3/mcL Workflow SS LABORATORYOrdered By: Yoanna Coleman on 01-31-2024 Blood Glucose Testing Reason Routine (01/31/24 7:30 AM) [facility] Glucose [Mass/Vol] 146 mg/dL High 70 - 110 mg/dL [facility] LABORATORYOrdered By: Jacqueline Ospina on 01-31-2024 FLUAV RNA ROSE+probe Ql (Resp) Negative 15 (01/31/24 4:30 AM) Normal Negative AH Auto Viro/Sero SS Comment on above: Result Comment: [place] [id number] FLUBV RNA ROSE+probe Ql (Resp) Negative 16 (01/31/24 4:30 AM) Normal Negative AH Auto Viro/Sero SS Comment on above: Result Comment: [place] [id number] RSV PCR Negative 17 (01/31/24 4:30 AM) Normal Negative AH Auto Viro/Sero SS Comment on above: Result Comment: Note s [id number] SARS-CoV-2 (COVID-19) RNA ROSE+probe Ql (Resp) Negative 13, 14 (01/31/24 4:30 AM) Normal Negative AH Auto Viro/Sero SS Comment on above: Result Comment: [place] s [id number] Interpretive Data: T his test has been [...] 1.07 mmol/L Low 1.12 - 1.32 mmol/L [facility] Comm SS LABORATORYOrdered By: Roshan Galarza on 01-31-2024 Blood Glucose Testing Reason Routine (01/31/24 2:48 AM) [facility] Glucose [Mass/Vol] 153 mg/dL High 70 - 110 mg/dL [facility] LACon 01-31-2024 Lactic Acid Lvl 1.2 mmol/L Normal 0.5-2.2 [facility] ([place]) Comment on above: Result Comment: Spec imen hemolyzed. Results may be affected. Performed By: #### A DIFF, TROPHS, GFR, BMP, MDW, CBC, PBNP, ANEU #### [address] [address] MGon 01-31-2024 Magnesium [Mass/Vol] 1.5 mg/dL Low 1.6-2.4 [facility] ([place]) Comment on above: Performed By: #### A DIFF, TROPHS, GFR, BMP, MDW, CBC, PBNP, ANEU #### [address] [address] No Panel Informationon 01-30 Microscopic examination of blood, culture Culture has been received in lab and is no growth to date. Routine cultures are held for 5 days. [facility] PHOSon 01-31-2024 Phosphate [Mass/Vol] 3.1 mg/dL Normal 2.4-5.1 [facility] ([place]) Comment on above: Result Comment: No te - New Reference Range in effect 19 Performed By: #### A DIFF, TROPHS, GFR, BMP, MDW, CBC, PBNP, ANEU #### [address] [address] PROon 01-31-2024 INR Coag (PPP) [Relative time] 1.3 {INR} Normal [facility] ([place]) Comment on above: Result Comment: [employer] (CHEST, 1992, [id number]) recommended therapeutic range for oral anticoagulant therapy is: LOW RISK: Prophylaxis of venous thrombosis INR: 2.0-3.0 Treatment of pulmonary embolism 2.0-3.0 Prevention of systemic embolism 2.0-3.0 HIGH RISK: Mechanical prosthetic valves 2.5-3.5 Performed By: #### A DIFF, TROPHS, GFR, BMP, MDW, CBC, PBNP, ANEU #### [address] [address] PT Coag (PPP) [Time] 14.7 s High 9.0-14.4 [facility] ([place]) Comment on above: Result Comment: Effe ctive 12/11/07, Protime results may be affected by some antibiotics (i.e. Ciprofloxacin, Azithromycin, Bactrim) which may potentiate the action of oral anticoagulants, with further increases in Protime/INR. Performed By: #### A DIFF, TROPHS, GFR, BMP, MDW, CBC, PBNP, ANEU #### [address] [address] [facility] 01-31-2024 High Sensitivity Troponin I 4 ng/L Normal 0-54 [facility] ([place]) Comment on above: Result Comment: High Sensitive Troponin I Reference Ranges: Female: 0-34 ng/L Male: 0-54 ng/L Testing performed on [employer] IM analyzer using direct chemiluminescent technology. Performed By: #### A DIFF, TROPHS, GFR, BMP, MDW, CBC, PBNP, ANEU #### [address] [address] .Auto Diffon 01-30-2024 Basophil, Absolute 0.2 10 3/mcL Normal 0.0-0.2 [facility] ([place]) Comment on above: Performed By: #### A DIFF, TROPHS, GFR, BMP, MDW, CBC, PBNP, ANEU #### [address] [address] Basophils/100 WBC (Bld) 1.1 % Normal 0.0-2.5 [facility] ([place]) Comment on above: Performed By: #### A DIFF, TROPHS, GFR, BMP, MDW, CBC, PBNP, ANEU #### [address] [address] Eosinophil, Absolute 0.1 10 3/mcL Normal 0.0-0.4 [facility] ([place]) Comment on above: Performed By: #### A DIFF, TROPHS, GFR, BMP, MDW, CBC, PBNP, ANEU #### [address] [address] Eosinophils/100 WBC (Bld) 0.7 % Normal 0.0-7.0 [facility] ([place]) Comment on above: Performed By: #### A DIFF, TROPHS, GFR, BMP, MDW, CBC, PBNP, ANEU #### [address] [address] Lymphocyte, Absolute 2.8 10 3/mcL Normal 0.8-3.9 [facility] ([place]) Comment on above: Performed By: #### A DIFF, TROPHS, GFR, BMP, MDW, CBC, PBNP, ANEU #### [address] [address] Lymphocytes/100 WBC (Bld) 20.2 % Normal 10.0-50.0 [facility] ([place]) Comment on above: Performed By: #### A DIFF, TROPHS, GFR, BMP, MDW, CBC, PBNP, ANEU #### [address] [address] Monocyte, Absolute 1.7 10 3/mcL High 0.2-1.0 [facility] ([place]) Comment on above: Performed By: #### A DIFF, TROPHS, GFR, BMP, MDW, CBC, PBNP, ANEU #### [address] [address] Monocytes/100 WBC (Bld) 12.2 % Normal 1.7-13.0 [facility] ([place]) Comment on above: Performed By: #### A DIFF, TROPHS, GFR, BMP, MDW, CBC, PBNP, ANEU #### [address] [address] Neutrophils/100 WBC (Bld) 65.8 % Normal 37.0-80.0 [facility] ([place]) Comment on above: Performed By: #### A DIFF, TROPHS, GFR, BMP, MDW, CBC, PBNP, ANEU #### [address] [address] .GFRon 01-30-2024 GFR 38 ml/min/1.73sqm Normal [facility] ([place]) Comment on above: Result Comment: GFR Population [...] GFR, BMP, MDW, CBC, PBNP, ANEU #### [address] [address] GFR Non- 31 ml/min/1.73sqm Normal [facility] ([place]) Comment on above: Result Comment: GFR Population [...] GFR, BMP, MDW, CBC, PBNP, ANEU #### [place] [address] .MDWon 01-30-2024 Monocyte Distribution Width 21.35 High 0.00-20.00 [facility] ([place]) Comment on above: Result Comment: For adults in ED, MDW>20.0 may be associated with a higher risk of sepsis during the first 12hrs of hospital admission Performed By: #### A DIFF, TROPHS, GFR, BMP, MDW, CBC, PBNP, ANEU #### [place] [address] .NEUABSon 01-30-2024 Neutrophil, Absolute 9.2 10 3/mcL High 2.9-6.2 [facility] ([place]) Comment on above: Performed By: #### A DIFF, TROPHS, GFR, BMP, MDW, CBC, PBNP, ANEU #### [place] [address] .Urinalysis Microscopic (AO) on 01-30-2024 UA RBC None Seen Normal None Seen [facility] ([place]) Comment on above: Performed By: #### A DIFF, TROPHS, GFR, BMP, MDW, CBC, PBNP, ANEU #### [address] [address] UA Squam Epithelial None Seen Normal None Seen [facility] ([place]) Comment on above: Performed By: #### A DIFF, TROPHS, GFR, BMP, MDW, CBC, PBNP, ANEU #### [address] [address] UA WBC 0-5 Abnormal None Seen [facility] ([place]) Comment on above: Performed By: #### A DIFF, TROPHS, GFR, BMP, MDW, CBC, PBNP, ANEU #### [address] [address] BGon 01-30-2024 Base excess Calc (Bld) [Moles/Vol] 4.3 mmol/L Normal [facility] ([place]) Comment on above: Performed By: #### A DIFF, TROPHS, GFR, BMP, MDW, CBC, PBNP, ANEU #### [address] [address] CO2 [Moles/Vol] 29.8 mmol/L Normal 22.0-30.0 [facility] ([place]) Comment on above: Performed By: #### A DIFF, TROPHS, GFR, BMP, MDW, CBC, PBNP, ANEU #### [address] [address] HCO3 (Bld) [Moles/Vol] 28.5 mmol/L Normal 21.0-29.0 [facility] ([place]) Comment on above: Performed By: #### A DIFF, TROPHS, GFR, BMP, MDW, CBC, PBNP, ANEU #### [address] [address] Oxygen (Bld) [Partial pressure] 51.0 mm[Hg] Low 74.0-108.0 [facility] ([place]) Comment on above: Performed By: #### A DIFF, TROPHS, GFR, BMP, MDW, CBC, PBNP, ANEU #### [address] [address] Oxygen saturation in Blood 88.8 % Low 92.0-96.0 [facility] ([place]) Comment on above: Performed By: #### A DIFF, TROPHS, GFR, BMP, MDW, CBC, PBNP, ANEU #### [address] [address] pCO2 41.0 mmHg Normal 32.0-46.0 [facility] ([place]) Comment on above: Performed By: #### A DIFF, TROPHS, GFR, BMP, MDW, CBC, PBNP, ANEU #### [address] [address] pH (Bld) 7.460 [pH] Normal 7.380-7.460 [facility] ([place]) Comment on above: Performed By: #### A DIFF, TROPHS, GFR, BMP, MDW, CBC, PBNP, ANEU #### [address] [address] BMPon 01-30-2024 BUN/Creatinine Ratio 8 ratio Normal 7-27 [facility]) Comment on above: Performed By: #### A DIFF, TROPHS, GFR, BMP, MDW, CBC, PBNP, ANEU #### [address] [address] Calcium [Mass/Vol] 8.8 mg/dL Normal 8.4-10.2 [facility] ([place]) Comment on above: Performed By: #### A DIFF, TROPHS, GFR, BMP, MDW, CBC, PBNP, ANEU #### [address] [address] Chloride [Moles/Vol] 97 mmol/L Low 98-107 [facility] ([place]) Comment on above: Performed By: #### A DIFF, TROPHS, GFR, BMP, MDW, CBC, PBNP, ANEU #### [address] [address] CO2 [Moles/Vol] 31 mmol/L High 22-29 [facility] ([place]) Comment on above: Performed By: #### A DIFF, TROPHS, GFR, BMP, MDW, CBC, PBNP, ANEU #### [address] [address] Creatinine [Mass/Vol] 2.22 mg/dL High 0.70-1.30 [facility] ([place]) Comment on above: Result Comment: Test ing performed on Siemens Dimension EXL analyzer using a modified kinetic Ciera technique. Performed By: #### A DIFF, TROPHS, GFR, BMP, MDW, CBC, PBNP, ANEU #### [address] [address] Electrolyte Balance 6.0 mEq/L Normal 4.0-15.0 [facility] ([place]) Comment on above: Performed By: #### A DIFF, TROPHS, GFR, BMP, MDW, CBC, PBNP, ANEU #### [address] [address] Glucose [Mass/Vol] 112 mg/dL High 70-105 [facility] ([place]) Comment on above: Performed By: #### A DIFF, TROPHS, GFR, BMP, MDW, CBC, PBNP, ANEU #### [address] [address] Potassium [Moles/Vol] 3.7 mmol/L Normal 3.5-5.1 [facility] ([place]) Comment on above: Performed By: #### A DIFF, TROPHS, GFR, BMP, MDW, CBC, PBNP, ANEU #### [address] [address] Sodium [Moles/Vol] 134 mmol/L Low 136-145 [facility] ([place]) Comment on above: Performed By: #### A DIFF, TROPHS, GFR, BMP, MDW, CBC, PBNP, ANEU #### [address] [address] Urea nitrogen [Mass/Vol] 17 mg/dL Normal 7-18 [facility] ([place]) Comment on above: Performed By: #### A DIFF, TROPHS, GFR, BMP, MDW, CBC, PBNP, ANEU #### [address] [address] CBCon 01-30-2024 Erythrocyte distribution width (RBC) [Ratio] 16.5 % High 11.5-14.5 [facility] ([place]) Comment on above: Performed By: #### A DIFF, TROPHS, GFR, BMP, MDW, CBC, PBNP, ANEU #### [address] [address] Hematocrit (Bld) [Volume fraction] 45.3 % Normal 42.0-52.0 [facility] ([place]) Comment on above: Performed By: #### A DIFF, TROPHS, GFR, BMP, MDW, CBC, PBNP, ANEU #### [address] [address] Hgb 14.9 G/dL Normal 14.0-18.0 [facility] ([place]) Comment on above: Performed By: #### A DIFF, TROPHS, GFR, BMP, MDW, CBC, PBNP, ANEU #### [address] [address] MCH (RBC) [Entitic mass] 26.6 pg Low 27.0-31.2 [facility] ([place]) Comment on above: Performed By: #### A DIFF, TROPHS, GFR, BMP, MDW, CBC, PBNP, ANEU #### [address] [address] MCHC 33.0 G/dL Normal 31.8-35.4 [facility] ([place]) Comment on above: Performed By: #### A DIFF, TROPHS, GFR, BMP, MDW, CBC, PBNP, ANEU #### [address] [address] MCV (RBC) [Entitic vol] 80.7 fL Normal 80.0-94.0 [facility] ([place]) Comment on above: Performed By: #### A DIFF, TROPHS, GFR, BMP, MDW, CBC, PBNP, ANEU #### [address] [address] Platelet 263 10 3/mcL Normal 130-400 [facility] ([place]) Comment on above: Performed By: #### A DIFF, TROPHS, GFR, BMP, MDW, CBC, PBNP, ANEU #### [address] [address] Platelet mean volume (Bld) [Entitic vol] 6.8 fL Low 7.4-10.4 [facility] ([place]) Comment on above: Performed By: #### A DIFF, TROPHS, GFR, BMP, MDW, CBC, PBNP, ANEU #### [place] [address] RBC 5.61 10 6/mcL Normal 4.04-6.13 [facility] ([place]) Comment on above: Performed By: #### A DIFF, TROPHS, GFR, BMP, MDW, CBC, PBNP, ANEU #### [address] [address] WBC 14.0 10 3/mcL High 4.6-10.8 [facility] ([place]) Comment on above: Performed By: #### A DIFF, TROPHS, GFR, BMP, MDW, CBC, PBNP, ANEU #### [address] [address] [address] HEAD OR BRAIN W/O CONTRAS Ton [...] Date: 01/30/2024 10:16:46 PM Ordering Provider: SAMY JONES [facility] ([place]) LABORATORYOrdered By: Jil Moraels on 01-30-2024 Appearance (U) Clear (01/30/24 11:33 [...] ng/L Male: 0-76 ng/L Testing performed on 2sms using a homogeneous sandwich chemiluminescent immunoassay based on [employer] technology. Lactate [Moles/Vol] 1.0 mmol/L Normal 0.4 [...] ng/L Male: 0-76 ng/L Testing performed on 2sms using a homogeneous sandwich chemiluminescent immunoassay based on [employer] technology. Urea nitrogen [Mass/Vol] 17 mg/dL Normal [...] Acid Lvl 1.0 mmol/L Normal 0.4-2.0 [facility] ([place]) Comment on above: Performed By: #### L AC #### [address] [address] No Panel Informationon 01-29 Microscopic examination of blood, culture Culture has been received in lab and is no growth to date. Routine cultures are held for [address] [facility] PBNPon 01-30-2024 Natriuretic peptide B (Bld) [Mass/Vol] 1822 pg/mL High 0-125 [facility] ([place]) Comment on above: Result Comment: NT-p roBNP results of less than 300 pg/mL effectively rules out acute congestive heart failure with 99% negative predictive value. Performed By: #### A DIFF, TROPHS, GFR, BMP, MDW, CBC, PBNP, ANEU #### [address] [address] TROPHSon 01-30-2024 High Sensitivity Troponin I 7 ng/L Normal 0-76 [facility] ([place]) Comment on above: Result Comment: High Sensitive Troponin I Reference Ranges: Female: 0-51 ng/L Male: 0-76 ng/L Testing performed on 2sms using a homogeneous sandwich chemiluminescent immunoassay based on [employer] technology. Performed By: #### A DIFF, TROPHS, GFR, BMP, MDW, CBC, PBNP, ANEU #### [address] [address] High Sensitivity Troponin I 8 ng/L Normal 0-76 [facility] ([place]) Comment on above: Result Comment: High Sensitive Troponin I Reference Ranges: Female: 0-51 ng/L Male: 0-76 ng/L Testing performed on [employer] using a homogeneous sandwich chemiluminescent immunoassay based on [employer] technology. Performed By: #### A DIFF, TROPHS, GFR, BMP, MDW, CBC, PBNP, ANEU #### [address] [address] UAon 01-30-2024 Color (U) Yellow Normal [facility] ([place]) Comment on above: Performed By: #### A DIFF, TROPHS, GFR, BMP, MDW, CBC, PBNP, ANEU #### [address] [address] Glucose (U) [Mass/Vol] Negative Normal Negative [facility] ([place]) Comment on above: Performed By: #### A DIFF, TROPHS, GFR, BMP, MDW, CBC, PBNP, ANEU #### [address] [address] Ketones Ql (U) Negative Normal Negative [facility] ([place]) Comment on above: Performed By: #### A DIFF, TROPHS, GFR, BMP, MDW, CBC, PBNP, ANEU #### [address] [address] UA Appear Clear Normal Clear [facility] ([place]) Comment on above: Performed By: #### A DIFF, TROPHS, GFR, BMP, MDW, CBC, PBNP, ANEU #### [address] [address] UA Bili Small Abnormal Negative [facility] ([place]) Comment on above: Performed By: #### A DIFF, TROPHS, GFR, BMP, MDW, CBC, PBNP, ANEU #### [address] [address] UA Blood Trace Abnormal Negative [facility] ([place]) Comment on above: Performed By: #### A DIFF, TROPHS, GFR, BMP, MDW, CBC, PBNP, ANEU #### [address] [address] UA Leuk Est Trace Abnormal Negative [facility] ([place]) Comment on above: Performed By: #### A DIFF, TROPHS, GFR, BMP, MDW, CBC, PBNP, ANEU #### [address] [address] UA Nitrite Negative Normal Negative [facility] ([place]) Comment on above: Performed By: #### A DIFF, TROPHS, GFR, BMP, MDW, CBC, PBNP, ANEU #### [address] [address] UA pH 6.0 Normal 5.0 - 8.0 [facility] ([place]) Comment on above: Performed By: #### A DIFF, TROPHS, GFR, BMP, MDW, CBC, PBNP, ANEU #### [address] [address] UA Protein 100 mg/dL Abnormal Negative [facility] ([place]) Comment on above: Performed By: #### A DIFF, TROPHS, GFR, BMP, MDW, CBC, PBNP, ANEU #### [address] [address] UA Spec Grav 1.025 Normal 1.015-1.025 [facility] ([place]) Comment on above: Performed By: #### A DIFF, TROPHS, GFR, BMP, MDW, CBC, PBNP, ANEU #### [address] [address] UA Specimen Type Void Normal [facility] ([place]) Comment on above: Performed By: #### A DIFF, TROPHS, GFR, BMP, MDW, CBC, PBNP, ANEU #### [address] [address] UA Urobilinogen 1.0 E.U./dL Normal 0.2-1.0 [facility] ([place]) Comment on above: Performed By: #### A DIFF, TROPHS, GFR, BMP, MDW, CBC, PBNP, LILIANA #### [address] [address] XR CHEST 1 VIEWon 01-30-2024 XR CHEST [...] 01/30/2024 9:28:12 PM Ordering Provider: SAMY JONES Normal [facility] ([place]) .GFRon 08-08-2023 GFR Non- 105 ml/min/1.73sqm Normal [facility] ([place]) Comment on above: Result Comment: GFR Population [...] GFR, BMP, MDW, CBC, PBNP, ANEU #### [address] [address] GFR 127 ml/min/1.73sqm Normal [facility] ([place]) Comment on above: Result Comment: GFR Population [...] GFR, BMP, MDW, CBC, PBNP, ANEU #### [address] [address] A1Con 08-08-2023 HbA1c (Bld) [Mass fraction] 6.7 % High 4.3-6.4 [facility] ([place]) Comment on above: Performed By: #### A DIFF, TROPHS, GFR, BMP, MDW, CBC, PBNP, ANEU #### [address] [address] CMPon 08-08-2023 Albumin Level 3.4 G/dL Low 3.5-5.0 [facility] ([place]) Comment on above: Performed By: #### A DIFF, TROPHS, GFR, BMP, MDW, CBC, PBNP, ANEU #### [address] [address] Albumin/Globulin [Mass ratio] 0.9 {ratio} Low 1.1-2.5 [facility] ([place]) Comment on above: Performed By: #### A DIFF, TROPHS, GFR, BMP, MDW, CBC, PBNP, ANEU #### [address] [address] ALP [Catalytic activity/Vol] 87 U/L Normal 40-135 [facility] ([place]) Comment on above: Performed By: #### A DIFF, TROPHS, GFR, BMP, MDW, CBC, PBNP, ANEU #### [address] [address] ALT [Catalytic activity/Vol] 19 U/L Normal 16-63 [facility] ([place]) Comment on above: Performed By: #### A DIFF, TROPHS, GFR, BMP, MDW, CBC, PBNP, ANEU #### [address] [address] AST [Catalytic activity/Vol] 15 U/L Normal 10-40 [facility] ([place]) Comment on above: Performed By: #### A DIFF, TROPHS, GFR, BMP, MDW, CBC, PBNP, ANEU #### [address] [address] Bili Total 0.5 mg/dL Normal 0.2-1.0 [facility] ([place]) Comment on above: Result Comment: Use of this assay is not recommended for patients undergoing treatment with eltrombopag due to the potential for falsely elevated results. Performed By: #### A DIFF, TROPHS, GFR, BMP, MDW, CBC, PBNP, ANEU #### [address] [address] BUN/Creatinine Ratio 14 ratio Normal 7-27 [facility] ([place]) Comment on above: Performed By: #### A DIFF, TROPHS, GFR, BMP, MDW, CBC, PBNP, ANEU #### [address] [address] Calcium [Mass/Vol] 8.7 mg/dL Normal 8.4-10.2 [facility] ([place]) Comment on above: Performed By: #### A DIFF, TROPHS, GFR, BMP, MDW, CBC, PBNP, ANEU #### [address] [address] Chloride [Moles/Vol] 100 mmol/L Normal 98-107 [facility] ([place]) Comment on above: Performed By: #### A DIFF, TROPHS, GFR, BMP, MDW, CBC, PBNP, ANEU #### [place] [address] CO2 [Moles/Vol] 34 mmol/L High 22-29 [facility] ([place]) Comment on above: Performed By: #### A DIFF, TROPHS, GFR, BMP, MDW, CBC, PBNP, ANEU #### [place] [address] Creatinine [Mass/Vol] 0.78 mg/dL Normal 0.70-1.30 [facility] ([place]) Comment on above: Performed By: #### A DIFF, TROPHS, GFR, BMP, MDW, CBC, PBNP, ANEU #### [place] [address] Electrolyte Balance 6.0 mEq/L Normal 4.0-15.0 [facility] ([place]) Comment on above: Performed By: #### A DIFF, TROPHS, GFR, BMP, MDW, CBC, PBNP, ANEU #### [place] [address] Globulin 3.8 G/dL Normal [facility] ([place]) Comment on above: Performed By: #### A DIFF, TROPHS, GFR, BMP, MDW, CBC, PBNP, ANEU #### [place] [address] Glucose [Mass/Vol] 121 mg/dL High 70-105 [facility] ([place]) Comment on above: Performed By: #### A DIFF, TROPHS, GFR, BMP, MDW, CBC, PBNP, ANEU #### [place] [address] Potassium [Moles/Vol] 4.2 mmol/L Normal 3.5-5.1 [facility]) Comment on above: Performed By: #### A DIFF, TROPHS, GFR, BMP, MDW, CBC, PBNP, ANEU #### [place] [address] Sodium [Moles/Vol] 140 mmol/L Normal 136-145 [facility] ([place]) Comment on above: Performed By: #### A DIFF, TROPHS, GFR, BMP, MDW, CBC, PBNP, ANEU #### [address] [address] Total Protein 7.2 G/dL Normal 6.4-8.2 [facility] ([place]) Comment on above: Performed By: #### A DIFF, TROPHS, GFR, BMP, MDW, CBC, PBNP, ANEU #### [address] [address] Urea nitrogen [Mass/Vol] 11 mg/dL Normal 7-18 [facility] ([place]) Comment on above: Performed By: #### A DIFF, TROPHS, GFR, BMP, MDW, CBC, PBNP, ANEU #### [address] [address] LABORATORYOrdered By: Jr Fontaine on 08-08-2023 Albumin DL <= 20 mg/L (U) [Mass/Vol] 378 mcg/dL Invalid Interpretation Code AO ADM SS Albumin/Creatinine DL <= 20 mg/L (U) [Mass ratio] 12 mcg/mg Normal 0 - 30 mcg/mg AO ADM SS Creatinine (U) [Mass/Vol] 30.5 mg/dL Low 39.0 - 259.0 mg/dL AO ADM SS LIPIDon 08-08-2023 Cholesterol [Mass/Vol] 156 mg/dL Normal 0-200 [facility] ([place]) Comment on above: Result Comment: Chol esterol Reference Interval: Less than 200 Desirable 200-239 Borderline high risk 240 and above High risk Performed By: #### A DIFF, TROPHS, GFR, BMP, MDW, CBC, PBNP, ANEU #### [address] [address] Cholesterol in HDL [Mass/Vol] 28 mg/dL Low 40-60 [facility] ([place]) Comment on above: Performed By: #### A DIFF, TROPHS, GFR, BMP, MDW, CBC, PBNP, ANEU #### [address] [address] Cholesterol in LDL [Mass/Vol] 93 mg/dL Normal 0-130 [facility] ([place]) Comment on above: Performed By: #### A DIFF, TROPHS, GFR, BMP, MDW, CBC, PBNP, ANEU #### [address] [address] Triglyceride [Mass/Vol] 175 mg/dL High 0-150 [facility] ([place]) Comment on above: Result Comment: Trig lyceride Reference Interval: Less than 150 Normal 150-199 Borderline high risk 200-499 High risk 500 or higher Very high risk Performed By: #### A DIFF, TROPHS, GFR, BMP, MDW, CBC, PBNP, ANEU #### [address] [address] MALBRon 08-08-2023 U Creatinine 30.5 mg/dL Low 39.0-259.0 [facility] ([place]) Comment on above: Performed By: #### A DIFF, TROPHS, GFR, BMP, MDW, CBC, PBNP, ANEU #### [address] [address] U Microalb 378 mcg/dL Normal [facility] ([place]) Comment on above: Performed By: #### A DIFF, TROPHS, GFR, BMP, MDW, CBC, PBNP, ANEU #### [address] [address] U Ratio Alb/Cre 12 mcg/mg Normal 0-30 [facility] ([place]) Comment on above: Performed By: #### A DIFF, TROPHS, GFR, BMP, MDW, CBC, PBNP, ANEU #### [address] [address] CVFLURVon 06-13-2023 FLU A PCR Negative Normal Negative [facility] ([place]) Comment on above: Performed By: #### A DIFF, TROPHS, GFR, BMP, MDW, CBC, PBNP, ANEU #### [address] [address] FLU B PCR Negative Normal Negative [facility] ([place]) Comment on above: Performed By: #### A DIFF, TROPHS, GFR, BMP, MDW, CBC, PBNP, ANEU #### [place] [address] [place], [place] [address] RSV PCR Negative Normal Negative [facility] ([place]) Comment on above: Performed By: #### A DIFF, TROPHS, GFR, BMP, MDW, CBC, PBNP, ANEU #### [place] [address] [place] [id number] SARS-CoV-2 (COVID-19) RNA ROSE+probe Ql (Unsp spec) Negative Normal Negative [facility] ([place]) Comment on above: Result Comment: This test [...] GFR, BMP, MDW, CBC, PBNP, ANEU #### [place] [address] [place], [place] [address] LABORATORYOrdered By: Giovana Fischer on 06-13-2023 FLUAV [...] Date: 06/13/2023 12:39:50 AM Ordering Provider: DEMI BETZAIDA Normal [facility] ([place]) .Auto Diffon 06-09-2023 Basophil, Absolute 0.1 10 3/mcL Normal 0.0-0.3 [facility] ([place]) Comment on above: Performed By: #### A DIFF, TROPHS, GFR, BMP, MDW, CBC, PBNP, ANEU #### [address] [address] Basophils/100 WBC (Bld) 0.8 % Normal 0.0-2.5 [facility] ([place]) Comment on above: Performed By: #### A DIFF, TROPHS, GFR, BMP, MDW, CBC, PBNP, ANEU #### [address] [address] Eosinophil, Absolute 0.1 10 3/mcL Normal 0.0-0.7 [facility] ([place]) Comment on above: Performed By: #### A DIFF, TROPHS, GFR, BMP, MDW, CBC, PBNP, ANEU #### [address] [address] Eosinophils/100 WBC (Bld) 2.0 % Normal 0.0-6.0 [facility] ([place]) Comment on above: Performed By: #### A DIFF, TROPHS, GFR, BMP, MDW, CBC, PBNP, ANEU #### [address] [address] Lymphocyte, Absolute 1.0 10 3/mcL Normal 0.9-4.3 [facility] ([place]) Comment on above: Performed By: #### A DIFF, TROPHS, GFR, BMP, MDW, CBC, PBNP, ANEU #### [address] [address] Lymphocytes/100 WBC (Bld) 15.5 % Low 20.0-40.0 [facility] ([place]) Comment on above: Performed By: #### A DIFF, TROPHS, GFR, BMP, MDW, CBC, PBNP, ANEU #### [address] [address] Monocyte, Absolute 0.7 10 3/mcL Normal 0.1-1.4 [facility] ([place]) Comment on above: Performed By: #### A DIFF, TROPHS, GFR, BMP, MDW, CBC, PBNP, ANEU #### [address] [address] Monocytes/100 WBC (Bld) 11.1 % Normal 2.0-13.0 [facility] ([place]) Comment on above: Performed By: #### A DIFF, TROPHS, GFR, BMP, MDW, CBC, PBNP, ANEU #### [address] [address] Neutrophils/100 WBC (Bld) 70.6 % Normal 50.0-75.0 [facility] ([place]) Comment on above: Performed By: #### A DIFF, TROPHS, GFR, BMP, MDW, CBC, PBNP, ANEU #### [address] [address] .GFRon 06-09-2023 GFR Non- >60 Normal [facility] ([place]) Comment on above: Result Comment: GFR Population [...] GFR, BMP, MDW, CBC, PBNP, ANEU #### [address] [address] GFR >60 Normal [facility] ([place]) Comment on above: Result Comment: GFR Population [...] GFR, BMP, MDW, CBC, PBNP, ANEU #### [address] [address] .NEUABSon 06-09-2023 Neutrophil, Absolute 4.7 10 3/mcL Normal 2.3-8.1 [facility] ([place]) Comment on above: Performed By: #### A DIFF, TROPHS, GFR, BMP, MDW, CBC, PBNP, ANEU #### [address] [address] BMPon 06-09-2023 BUN/Creatinine Ratio 11.8 ratio Normal 10.0-22.0 [facility] ([place]) Comment on above: Performed By: #### A DIFF, TROPHS, GFR, BMP, MDW, CBC, PBNP, ANEU #### [address] [address] Calcium [Mass/Vol] 9.0 mg/dL Normal 8.7-10.4 [facility] ([place]) Comment on above: Performed By: #### A DIFF, TROPHS, GFR, BMP, MDW, CBC, PBNP, ANEU #### [address] [address] Chloride [Moles/Vol] 102 mmol/L Normal 98-110 [facility] ([place]) Comment on above: Performed By: #### A DIFF, TROPHS, GFR, BMP, MDW, CBC, PBNP, ANEU #### [address] [address] CO2 [Moles/Vol] 35 mmol/L High 22-32 [facility] ([place]) Comment on above: Performed By: #### A DIFF, TROPHS, GFR, BMP, MDW, CBC, PBNP, ANEU #### [address] [address] Creatinine [Mass/Vol] 0.85 mg/dL Normal 0.60-1.40 [facility] ([place]) Comment on above: Performed By: #### A DIFF, TROPHS, GFR, BMP, MDW, CBC, PBNP, ANEU #### [address] [address] Electrolyte Balance 0.0 mEq/L Low 4.0-15.0 [facility] ([place]) Comment on above: Performed By: #### A DIFF, TROPHS, GFR, BMP, MDW, CBC, PBNP, ANEU #### [address] [address] Glucose [Mass/Vol] 146 mg/dL High 70-110 [facility] ([place]) Comment on above: Performed By: #### A DIFF, TROPHS, GFR, BMP, MDW, CBC, PBNP, ANEU #### [address] [address] Potassium [Moles/Vol] 4.8 mmol/L Normal 3.5-5.0 [facility] ([place]) Comment on above: Performed By: #### A DIFF, TROPHS, GFR, BMP, MDW, CBC, PBNP, ANEU #### [address] [address] Sodium [Moles/Vol] 137 mmol/L Normal 136-145 [facility] ([place]) Comment on above: Performed By: #### A DIFF, TROPHS, GFR, BMP, MDW, CBC, PBNP, ANEU #### [address] [address] Urea nitrogen [Mass/Vol] 10.0 mg/dL Normal 8.0-22.0 [facility] ([place]) Comment on above: Result Comment: Spec imen hemolyzed. Results may be falsely elevated. Performed By: #### A DIFF, TROPHS, GFR, BMP, MDW, CBC, PBNP, ANEU #### [address] [address] CBCon 06-09-2023 Erythrocyte distribution width (RBC) [Ratio] 13.3 % Normal 11.5-15.5 [facility] ([place]) Comment on above: Performed By: #### A DIFF, TROPHS, GFR, BMP, MDW, CBC, PBNP, ANEU #### [place] [address] Hematocrit (Bld) [Volume fraction] 45.9 % Normal 40.0-52.0 [facility] ([place]) Comment on above: Performed By: #### A DIFF, TROPHS, GFR, BMP, MDW, CBC, PBNP, ANEU #### [place] [address] Hgb 15.6 G/dL Normal 13.0-17.5 [facility] ([place]) Comment on above: Performed By: #### A DIFF, TROPHS, GFR, BMP, MDW, CBC, PBNP, ANEU #### [address] [address] MCH (RBC) [Entitic mass] 29.0 pg Normal 27.0-33.0 [facility] ([place]) Comment on above: Performed By: #### A DIFF, TROPHS, GFR, BMP, MDW, CBC, PBNP, ANEU #### [place] [address] MCHC 33.9 G/dL Normal 32.0-36.0 [facility] ([place]) Comment on above: Performed By: #### A DIFF, TROPHS, GFR, BMP, MDW, CBC, PBNP, ANEU #### [place] [address] MCV (RBC) [Entitic vol] 85.5 fL Normal 81.0-100.0 [facility] ([place]) Comment on above: Performed By: #### A DIFF, TROPHS, GFR, BMP, MDW, CBC, PBNP, ANEU #### [address] [address] Platelet 174 10 3/mcL Normal 150-450 [facility] ([place]) Comment on above: Performed By: #### A DIFF, TROPHS, GFR, BMP, MDW, CBC, PBNP, ANEU #### [address] [address] Platelet mean volume (Bld) [Entitic vol] 7.5 fL Normal 6.4-10.5 [facility] ([place]) Comment on above: Performed By: #### A DIFF, TROPHS, GFR, BMP, MDW, CBC, PBNP, ANEU #### [address] [address] RBC 5.37 10 6/mcL Normal 4.50-6.00 [facility] ([place]) Comment on above: Performed By: #### A DIFF, TROPHS, GFR, BMP, MDW, CBC, PBNP, ANEU #### [address] [address] WBC 6.6 10 3/mcL Normal 4.5-10.8 [facility] ([place]) Comment on above: Performed By: #### A DIFF, TROPHS, GFR, BMP, MDW, CBC, PBNP, ANEU #### [address] [address] LABORATORYOrdered By: Adenike Swain on 06-09-2023 Blood [...] 4 mg/dL AH ADM SS Chloride [Moles/Vol] 102 mmol/L Normal 98 - 11 0 mEq/L AH ADM SS CO2 [Moles/Vol] 35 mmol/L High 22 - 32 mEq/L AH ADM SS Creatinine [Mass/Vol] 0.85 mg/dL Normal 0.60 - 1.40 mg/dL AH ADM SS Electrolyte Balance 0.0 mEq/L Low 4.0 - 15 .0 mEq/L AH ADM [...] 146 mg/dL High 70 - 110 mg/dL AH ADM SS Hematocrit (Bld) [Volume fraction] 45.9 [...] 7.5 fL Normal 6.4 - 10.5 fL Workflow SS Platelets (Bld) [#/Vol] 174 103/mcL Normal 150 - 450 10^3/mcL AH Workflow SS Potassium [Moles/Vol] 4.8 mmol/L Normal 3.5 - 5.0 mEq/L AH ADM SS RBC (Bld) [#/Vol] 5.37 106/mcL [...] [Mass/Vol] 2.1 mg/dL Normal 1.6-2.4 [facility] ([place]) Comment on above: Performed By: #### A DIFF, TROPHS, GFR, BMP, MDW, CBC, PBNP, ANEU #### [address] [address] .Auto Diffon 06-08-2023 Basophil, Absolute 0.1 10 3/mcL Normal 0.0-0.3 [facility] ([place]) Comment on above: Performed By: #### A DIFF, TROPHS, GFR, BMP, MDW, CBC, PBNP, ANEU #### [address] [address] Basophils/100 WBC (Bld) 0.7 % Normal 0.0-2.5 [facility] ([place]) Comment on above: Performed By: #### A DIFF, TROPHS, GFR, BMP, MDW, CBC, PBNP, ANEU #### [address] [address] Eosinophil, Absolute 0.1 10 3/mcL Normal 0.0-0.7 [facility] ([place]) Comment on above: Performed By: #### A DIFF, TROPHS, GFR, BMP, MDW, CBC, PBNP, ANEU #### [address] [address] Eosinophils/100 WBC (Bld) 1.9 % Normal 0.0-6.0 [facility] ([place]) Comment on above: Performed By: #### A DIFF, TROPHS, GFR, BMP, MDW, CBC, PBNP, ANEU #### [address] [address] Lymphocyte, Absolute 1.3 10 3/mcL Normal 0.9-4.3 [facility] ([place]) Comment on above: Performed By: #### A DIFF, TROPHS, GFR, BMP, MDW, CBC, PBNP, ANEU #### [address] [address] Lymphocytes/100 WBC (Bld) 16.1 % Low 20.0-40.0 [facility] ([place]) Comment on above: Performed By: #### A DIFF, TROPHS, GFR, BMP, MDW, CBC, PBNP, ANEU #### [address] [address] Monocyte, Absolute 0.8 10 3/mcL Normal 0.1-1.4 [facility] ([place]) Comment on above: Performed By: #### A DIFF, TROPHS, GFR, BMP, MDW, CBC, PBNP, ANEU #### [address] [address] Monocytes/100 WBC (Bld) 9.9 % Normal 2.0-13.0 [facility] ([place]) Comment on above: Performed By: #### A DIFF, TROPHS, GFR, BMP, MDW, CBC, PBNP, ANEU #### [address] [address] Neutrophils/100 WBC (Bld) 71.4 % Normal 50.0-75.0 [facility] ([place]) Comment on above: Performed By: #### A DIFF, TROPHS, GFR, BMP, MDW, CBC, PBNP, ANEU #### [address] [address] .GFRon 06-08-2023 GFR >60 Normal [facility] ([place]) Comment on above: Result Comment: GFR Population [...] GFR, BMP, MDW, CBC, PBNP, ANEU #### [address] [address] GFR Non- >60 Normal [facility] ([place]) Comment on above: Result Comment: GFR Population [...] GFR, BMP, MDW, CBC, PBNP, ANEU #### [address] [address] .NEUABSon 06-08-2023 Neutrophil, Absolute 5.7 10 3/mcL Normal 2.3-8.1 [facility] ([place]) Comment on above: Performed By: #### A DIFF, TROPHS, GFR, BMP, MDW, CBC, PBNP, ANEU #### [address] [address] BMPon 06-08-2023 BUN/Creatinine Ratio 10.7 ratio Normal 10.0-22.0 [facility] ([place]) Comment on above: Performed By: #### A DIFF, TROPHS, GFR, BMP, MDW, CBC, PBNP, ANEU #### [address] [address] Calcium [Mass/Vol] 8.9 mg/dL Normal 8.7-10.4 [facility] ([place]) Comment on above: Performed By: #### A DIFF, TROPHS, GFR, BMP, MDW, CBC, PBNP, ANEU #### [address] [address] Chloride [Moles/Vol] 100 mmol/L Normal 98-110 [facility] ([place]) Comment on above: Performed By: #### A DIFF, TROPHS, GFR, BMP, MDW, CBC, PBNP, ANEU #### [address] [address] CO2 [Moles/Vol] 36 mmol/L High 22-32 [facility] ([place]) Comment on above: Performed By: #### A DIFF, TROPHS, GFR, BMP, MDW, CBC, PBNP, ANEU #### [address] [address] Creatinine [Mass/Vol] 0.75 mg/dL Normal 0.60-1.40 [facility] ([place]) Comment on above: Performed By: #### A DIFF, TROPHS, GFR, BMP, MDW, CBC, PBNP, ANEU #### [address] [address] Electrolyte Balance 1.0 mEq/L Low 4.0-15.0 [facility] ([place]) Comment on above: Performed By: #### A DIFF, TROPHS, GFR, BMP, MDW, CBC, PBNP, ANEU #### [address] [address] Glucose [Mass/Vol] 160 mg/dL High 70-110 [facility] ([place]) Comment on above: Performed By: #### A DIFF, TROPHS, GFR, BMP, MDW, CBC, PBNP, ANEU #### [address] [address] Potassium [Moles/Vol] 3.4 mmol/L Low 3.5-5.0 [facility] ([place]) Comment on above: Result Comment: Spec imen slightly hemolyzed. Performed By: #### A DIFF, TROPHS, GFR, BMP, MDW, CBC, PBNP, ANEU #### [place] [address] Sodium [Moles/Vol] 137 mmol/L Normal 136-145 [facility] ([place]) Comment on above: Performed By: #### A DIFF, TROPHS, GFR, BMP, MDW, CBC, PBNP, ANEU #### [address] [address] Urea nitrogen [Mass/Vol] 8.0 mg/dL Normal 8.0-22.0 [facility] ([place]) Comment on above: Performed By: #### A DIFF, TROPHS, GFR, BMP, MDW, CBC, PBNP, ANEU #### [address] [address] CBCon 06-08-2023 Erythrocyte distribution width (RBC) [Ratio] 13.1 % Normal 11.5-15.5 [facility] ([place]) Comment on above: Performed By: #### A DIFF, TROPHS, GFR, BMP, MDW, CBC, PBNP, ANEU #### [address] [address] Hematocrit (Bld) [Volume fraction] 45.7 % Normal 40.0-52.0 [facility] ([place]) Comment on above: Performed By: #### A DIFF, TROPHS, GFR, BMP, MDW, CBC, PBNP, ANEU #### [address] [address] Hgb 15.6 G/dL Normal 13.0-17.5 [facility] ([place]) Comment on above: Performed By: #### A DIFF, TROPHS, GFR, BMP, MDW, CBC, PBNP, ANEU #### [address] [address] MCH (RBC) [Entitic mass] 29.1 pg Normal 27.0-33.0 [facility] ([place]) Comment on above: Performed By: #### A DIFF, TROPHS, GFR, BMP, MDW, CBC, PBNP, ANEU #### [place] [address] MCHC 34.3 G/dL Normal 32.0-36.0 [facility] ([place]) Comment on above: Performed By: #### A DIFF, TROPHS, GFR, BMP, MDW, CBC, PBNP, ANEU #### [place] [address] MCV (RBC) [Entitic vol] 85.0 fL Normal 81.0-100.0 [facility] ([place]) Comment on above: Performed By: #### A DIFF, TROPHS, GFR, BMP, MDW, CBC, PBNP, ANEU #### [place] [id number] Platelet 200 10 3/mcL Normal 150-450 [facility] ([place]) Comment on above: Performed By: #### A DIFF, TROPHS, GFR, BMP, MDW, CBC, PBNP, ANEU #### [place] [address] Platelet mean volume (Bld) [Entitic vol] 7.5 fL Normal 6.4-10.5 [facility] ([place]) Comment on above: Performed By: #### A DIFF, TROPHS, GFR, BMP, MDW, CBC, PBNP, ANEU #### [place] [id number] RBC 5.37 10 6/mcL Normal 4.50-6.00 [facility] ([place]) Comment on above: Performed By: #### A DIFF, TROPHS, GFR, BMP, MDW, CBC, PBNP, ANEU #### [facility] [place] [facility] [address] [place], [place] [address] WBC 7.9 10 3/mcL Normal 4.5-10.8 [facility] ([place]) Comment on above: Performed By: #### A DIFF, TROPHS, GFR, BMP, MDW, CBC, PBNP, ANEU #### [facility] [place] [facility] [address] [place], [place] [address] LABORATORYOrdered By: Adenike Swain on 06-08-2023 Blood Glucose Testing Reason Routine (06/08/23 9:18 PM) [facility] Glucose [Mass/Vol] 173 mg/dL High 70 - 110 mg/dL [facility] LABORATORYOrdered By: SYSTEM SYSTEM on 06-08-2023 Basophils (Bld) [#/Vol] 0.1 103/mcL Normal 0.0 - 0.3 10^3/mcL Workflow SS Basophils/100 WBC (Bld) 0.7 % Normal 0.0 - 2.5 % Workflow SS Calcium [Mass/Vol] 8.9 mg/dL Normal [...] (S/P/Bld) [Vol rate/Area] ml/min/1.73sqm Invalid Interpretation Code [facility] Comment on above: Interpretive Data: GFR [...] 160 mg/dL High 70 - 110 mg/dL ADM SS Hematocrit (Bld) [Volume fraction] 45.7 % Normal 40.0 - 52.0 % Workflow SS Hemoglobin (Bld) [Mass/Vol] 15.6 G/dL Normal 13.0 - 17.5 G/dL Workflow SS Lymphocytes (Bld) [#/Vol] 1.3 103/mcL Normal 0.9 - 4.3 10^3/mcL Workflow SS Lymphocytes/100 WBC (Bld) 16.1 % Low 20.0 - 40.0 % Workflow SS Magnesium [Mass/Vol] 2.1 mg/dL Normal 1.6 - 2 .4 mg/dL AH ADM SS MCH (RBC) [Entitic mass] 29.1 [...] 3.4 mmol/L Low 3.5 - 5.0 mEq/L AH ADM SS Comment on above: Result Comment: [...] [Mass/Vol] 2.1 mg/dL Normal 1.6-2.4 [facility] ([place]) Comment on above: Performed By: #### A DIFF, TROPHS, GFR, BMP, MDW, CBC, PBNP, ANEU #### [address] [address] .Auto Diffon 06-07-2023 Basophil, Absolute 0.1 10 3/mcL Normal 0.0-0.3 [facility] ([place]) Comment on above: Performed By: #### A DIFF, TROPHS, GFR, BMP, MDW, CBC, PBNP, ANEU #### [address] [address] Basophils/100 WBC (Bld) 0.6 % Normal 0.0-2.5 [facility] ([place]) Comment on above: Performed By: #### A DIFF, TROPHS, GFR, BMP, MDW, CBC, PBNP, ANEU #### [address] [address] Eosinophil, Absolute 0.2 10 3/mcL Normal 0.0-0.7 [facility] ([place]) Comment on above: Performed By: #### A DIFF, TROPHS, GFR, BMP, MDW, CBC, PBNP, ANEU #### [address] [address] Eosinophils/100 WBC (Bld) 1.6 % Normal 0.0-6.0 [facility] ([place]) Comment on above: Performed By: #### A DIFF, TROPHS, GFR, BMP, MDW, CBC, PBNP, ANEU #### [address] [address] Lymphocyte, Absolute 1.4 10 3/mcL Normal 0.9-4.3 [facility] ([place]) Comment on above: Performed By: #### A DIFF, TROPHS, GFR, BMP, MDW, CBC, PBNP, ANEU #### [address] [address] Lymphocytes/100 WBC (Bld) 14.0 % Low 20.0-40.0 [facility] ([place]) Comment on above: Performed By: #### A DIFF, TROPHS, GFR, BMP, MDW, CBC, PBNP, ANEU #### [address] [address] Monocyte, Absolute 0.6 10 3/mcL Normal 0.1-1.4 [facility] ([place]) Comment on above: Performed By: #### A DIFF, TROPHS, GFR, BMP, MDW, CBC, PBNP, ANEU #### [address] [address] Monocytes/100 WBC (Bld) 6.4 % Normal 2.0-13.0 [facility] ([place]) Comment on above: Performed By: #### A DIFF, TROPHS, GFR, BMP, MDW, CBC, PBNP, ANEU #### [address] [address] Neutrophils/100 WBC (Bld) 77.4 % High 50.0-75.0 [facility] ([place]) Comment on above: Performed By: #### A DIFF, TROPHS, GFR, BMP, MDW, CBC, PBNP, ANEU #### [address] [address] .GFRon 06-07-2023 GFR >60 Normal [facility] ([place]) Comment on above: Result Comment: GFR Population [...] GFR, BMP, MDW, CBC, PBNP, ANEU #### [address] [address] GFR Non- >60 Normal [facility] ([place]) Comment on above: Result Comment: GFR Population [...] GFR, BMP, MDW, CBC, PBNP, ANEU #### [address] [address] .NEUABSon 06-07-2023 Neutrophil, Absolute 7.7 10 3/mcL Normal 2.3-8.1 [facility] ([place]) Comment on above: Performed By: #### A DIFF, TROPHS, GFR, BMP, MDW, CBC, PBNP, ANEU #### [place] [address] CBCon 06-07-2023 Erythrocyte distribution width (RBC) [Ratio] 14.0 % Normal 11.5-15.5 [facility] ([place]) Comment on above: Performed By: #### A DIFF, TROPHS, GFR, BMP, MDW, CBC, PBNP, ANEU #### [address] [address] Hematocrit (Bld) [Volume fraction] 47.6 % Normal 40.0-52.0 [facility] ([place]) Comment on above: Performed By: #### A DIFF, TROPHS, GFR, BMP, MDW, CBC, PBNP, ANEU #### [place] [id number] Hgb 16.3 G/dL Normal 13.0-17.5 [facility] ([place]) Comment on above: Performed By: #### A DIFF, TROPHS, GFR, BMP, MDW, CBC, PBNP, ANEU #### [place] [id number] MCH (RBC) [Entitic mass] 29.1 pg Normal 27.0-33.0 [facility] ([place]) Comment on above: Performed By: #### A DIFF, TROPHS, GFR, BMP, MDW, CBC, PBNP, ANEU #### [address] [address] MCHC 34.2 G/dL Normal 32.0-36.0 [facility] ([place]) Comment on above: Performed By: #### A DIFF, TROPHS, GFR, BMP, MDW, CBC, PBNP, ANEU #### [address] [address] MCV (RBC) [Entitic vol] 84.9 fL Normal 81.0-100.0 [facility] ([place]) Comment on above: Performed By: #### A DIFF, TROPHS, GFR, BMP, MDW, CBC, PBNP, ANEU #### [address] [address] Platelet 228 10 3/mcL Normal 150-450 [facility] ([place]) Comment on above: Performed By: #### A DIFF, TROPHS, GFR, BMP, MDW, CBC, PBNP, ANEU #### [address] [address] Platelet mean volume (Bld) [Entitic vol] 8.0 fL Normal 6.4-10.5 [facility] ([place]) Comment on above: Performed By: #### A DIFF, TROPHS, GFR, BMP, MDW, CBC, PBNP, ANEU #### [address] [address] RBC 5.61 10 6/mcL Normal 4.50-6.00 [facility] ([place]) Comment on above: Performed By: #### A DIFF, TROPHS, GFR, BMP, MDW, CBC, PBNP, ANEU #### [address] [address] WBC 9.9 10 3/mcL Normal 4.5-10.8 [facility] ([place]) Comment on above: Performed By: #### A DIFF, TROPHS, GFR, BMP, MDW, CBC, PBNP, ANEU #### [address] [address] CMPon 06-07-2023 Albumin Level 3.3 G/dL Normal 3.2-4.8 [facility] ([place]) Comment on above: Order Comment: hemol yzed. needs redrawn Performed By: #### A DIFF, TROPHS, GFR, BMP, MDW, CBC, PBNP, ANEU #### [address] [address] Albumin/Globulin [Mass ratio] 0.9 {ratio} Normal 0.9-1.6 [facility] ([place]) Comment on above: Order Comment: hemol yzed. needs redrawn Performed By: #### A DIFF, TROPHS, GFR, BMP, MDW, CBC, PBNP, ANEU #### [address] [address] ALP [Catalytic activity/Vol] 93 U/L Normal 38-126 [facility] ([place]) Comment on above: Order Comment: hemol yzed. needs redrawn Performed By: #### A DIFF, TROPHS, GFR, BMP, MDW, CBC, PBNP, ANEU #### [address] [address] ALT [Catalytic activity/Vol] 13 U/L Normal 12-55 [facility] ([place]) Comment on above: Order Comment: hemol yzed. needs redrawn Performed By: #### A DIFF, TROPHS, GFR, BMP, MDW, CBC, PBNP, ANEU #### [address] [address] AST [Catalytic activity/Vol] 13 U/L Normal 8-34 [facility] ([place]) Comment on above: Order Comment: hemol yzed. needs redrawn Performed By: #### A DIFF, TROPHS, GFR, BMP, MDW, CBC, PBNP, ANEU #### [address] [address] Bili Total 0.30 mg/dL Normal 0.20-1.20 [facility] ([place]) Comment on above: Order Comment: hemol yzed. needs redrawn Result Comment: Use of this assay is not recommended for patients undergoing treatment with eltrombopag due to the potential for falsely elevated results. Performed By: #### A DIFF, TROPHS, GFR, BMP, MDW, CBC, PBNP, ANEU #### [address] [address] BUN/Creatinine Ratio 10.8 ratio Normal 10.0-22.0 [facility] ([place]) Comment on above: Order Comment: hemol yzed. needs redrawn Performed By: #### A DIFF, TROPHS, GFR, BMP, MDW, CBC, PBNP, ANEU #### [address] [address] Calcium [Mass/Vol] 8.8 mg/dL Normal 8.7-10.4 [facility] ([place]) Comment on above: Order Comment: hemol yzed. needs redrawn Performed By: #### A DIFF, TROPHS, GFR, BMP, MDW, CBC, PBNP, ANEU #### [address] [address] Chloride [Moles/Vol] 97 mmol/L Low 98-110 [facility] ([place]) Comment on above: Order Comment: hemol yzed. needs redrawn Performed By: #### A DIFF, TROPHS, GFR, BMP, MDW, CBC, PBNP, ANEU #### [address] [address] CO2 [Moles/Vol] 37 mmol/L High 22-32 [facility] ([place]) Comment on above: Order Comment: hemol yzed. needs redrawn Performed By: #### A DIFF, TROPHS, GFR, BMP, MDW, CBC, PBNP, ANEU #### [address] [address] Creatinine [Mass/Vol] 0.93 mg/dL Normal 0.60-1.40 [facility] ([place]) Comment on above: Order Comment: hemol yzed. needs redrawn Performed By: #### A DIFF, TROPHS, GFR, BMP, MDW, CBC, PBNP, ANEU #### [address] [address] Electrolyte Balance 3.0 mEq/L Low 4.0-15.0 [facility] ([place]) Comment on above: Order Comment: hemol yzed. needs redrawn Performed By: #### A DIFF, TROPHS, GFR, BMP, MDW, CBC, PBNP, ANEU #### [address] [address] Globulin 3.6 G/dL Normal 1.5-3.8 [facility] ([place]) Comment on above: Order Comment: hemol yzed. needs redrawn Performed By: #### A DIFF, TROPHS, GFR, BMP, MDW, CBC, PBNP, ANEU #### [place] [address] Glucose [Mass/Vol] 209 mg/dL High 70-110 [facility] ([place]) Comment on above: Order Comment: hemol yzed. needs redrawn Performed By: #### A DIFF, TROPHS, GFR, BMP, MDW, CBC, PBNP, ANEU #### [address] [address] Potassium [Moles/Vol] 3.6 mmol/L Normal 3.5-5.0 [facility] ([place]) Comment on above: Order Comment: hemol yzed. needs redrawn Result Comment: Spec imen slightly hemolyzed. Performed By: #### A DIFF, TROPHS, GFR, BMP, MDW, CBC, PBNP, ANEU #### [address] [address] Sodium [Moles/Vol] 137 mmol/L Normal 136-145 [facility] ([place]) Comment on above: Order Comment: hemol yzed. needs redrawn Performed By: #### A DIFF, TROPHS, GFR, BMP, MDW, CBC, PBNP, ANEU #### [address] [address] Total Protein 6.9 G/dL Normal 5.7-8.2 [facility] ([place]) Comment on above: Order Comment: hemol yzed. needs redrawn Result Comment: No te - New Reference Range in effect 19 Performed By: #### A DIFF, TROPHS, GFR, BMP, MDW, CBC, PBNP, ANEU #### [place] [address] [place], [place] [address] Urea nitrogen [Mass/Vol] 10.0 mg/dL Normal 8.0-22.0 [facility] ([place]) Comment on above: Order Comment: hemol yzed. needs redrawn Performed By: #### A DIFF, TROPHS, GFR, BMP, MDW, CBC, PBNP, ANEU #### [place] [address] [place], [place] [address] LABORATORYOrdered By: SYSTEM SYSTEM on 06-07-2023 Albumin BCP dye [Mass/Vol] 3.3 G/dL Normal 3.2 - 4.8 G/dL ADM SS Albumin/Globulin [Mass ratio] 0.9 {ratio} Normal 0.9 - 1.6 ratio ADM SS ALP [Catalytic activity/Vol] 93 U/L Normal 38 - 126 U/L ADM SS ALT No additional P-5'-P [Catalytic activity/Vol] 13 U/L Normal 12 - 55 U/L ADM SS AST [Catalytic activity/Vol] 13 U/L Normal 8 - 34 U/L ADM SS Bilirubin [Mass/Vol] 0.30 mg/dL Normal 0.20 - 1.20 mg/dL ADM SS Comment on above: Interpretive Data: U se of this assay is not recommended for patients undergoing treatment with eltrombopag due to the potential for falsely elevated results. Calcium [Mass/Vol] 8.8 mg/dL Normal 8.7 - 10. 4 mg/dL ADM SS Chloride [Moles/Vol] 97 mmol/L Low 98 - 11 0 mEq/L ADM SS CO2 [Moles/Vol] 37 mmol/L High 22 - 32 mEq/L ADM SS Creatinine [Mass/Vol] 0.93 mg/dL Normal 0.60 - 1.40 mg/dL ADM SS Electrolyte Balance 3.0 mEq/L Low 4.0 - 15 .0 mEq/L AH ADM SS GFR/1.73 sq M.predicted among blacks [...] [Vol rate/Area] ml/min/1.73sqm Invalid Interpretation Code ADM Comment on above: Interpretive Data: GFR Population [...] 3.6 G/dL Normal 1.5 - 3.8 G/dL ADM SS Glucose [Mass/Vol] 209 mg/dL High 70 - 110 mg/dL ADM SS Magnesium [Mass/Vol] 1.7 mg/dL Normal 1.6 - 2 .4 mg/dL ADM SS Potassium [Moles/Vol] 3.6 mmol/L Normal 3.5 - 5.0 mEq/L AH ADM SS Comment on above: Result Comment: Spec imen slightly hemolyzed. Protein [Mass/Vol] 6.9 G/dL Normal 5.7 - 8.2 G/dL AH ADM SS Comment on above: Interpretive [...] [Mass/Vol] 1.7 mg/dL Normal 1.6-2.4 [facility] ([place]) Comment on above: Performed By: #### A DIFF, TROPHS, GFR, BMP, MDW, CBC, PBNP, ANEU #### [place] [address] XR CHEST 1 VIEWon 05-05-2023 XR CHEST [...] Date: 05/05/2023 9:17:04 PM Ordering Provider: DEMI BETZAIDA [facility] ([place]) XR RIBS 2 VIEWS RIGHTon -0 XR RIBS 2 VIEWS RIGHT ORIGINAL EXAMINATION: [...] Date: 05/05/2023 9:08:30 PM Ordering Provider: DEMI BETZAIDA [facility] ([place]) PBNPon 03-22-2023 Natriuretic peptide B (Bld) [Mass/Vol] 378 pg/mL High 0-125 [facility] ([place]) Comment on above: Result Comment: NT-p roBNP results of less than 300 pg/mL effectively rules out acute congestive heart failure with 99% negative predictive value. Performed By: #### A DIFF, TROPHS, GFR, BMP, MDW, CBC, PBNP, ANEU #### [address] [address] Influenza virus A and B and SARS-CoV-2 (COVID-19) Ag panel - Upper respiratory specimOrdered By: Nguyễn Al on 02-12-2023 SARS-CoV-2 (COVID-19) RNA ROSE+probe Ql (Resp) [facility] LABORATORYOrdered By: SYSTEM SYSTEM on 12-23-2022 [...] 150 mg/dL AO ADM SS LABORATORYOrdered By: SYSTEM SYSTEM on 10-27-2022 Albumin BCP dye [Mass/Vol] [...] Auto (Unsp spec) [#/Vol] 1.50 10*3/uL 0.83-4.51 [facility] Basophil percentageOrdered B y: Dr. Brown on 10-23-2022 Basophils/100 WBC (Bld) 0.8 % 0-1 [facility] Chloride [Moles/Vol] 102 mmol/L 98-107 [facility] Eosinophils/100 WBC (Bld) 2.4 % 0-5 [facility] Glucose [Mass/Vol] 126 mg/dL 74-106 [facility] Comment on above: Fasting Glucose resu lt greater than or equal to 126 mg/dL suggests DIABETES MELLITUS per A.D.A. criteria. Neutrophils (Bld) [#/Vol] 5.4 10*3/uL 2.0-7.7 [facility] Neutrophils/100 WBC (Bld) 67.9 % 47-70 [facility] Potassium [Moles/Vol] 3.2 mmol/L 3.5-5.1 [facility] Sodium [Moles/Vol] 140 mmol/L 136-145 [facility] WBC (Bld) [#/Vol] 7.9 10*3/uL 4.4-11.0 [facility] Blood erythrocytes count (nu mber/volume)Ordered By: Dr. Brown on 10-23-2022 RBC (Bld) [#/Vol] 6.06 10*6/uL 4.6-6.2 [facility] Blood hemoglobin measurement (mass/volume)Ordered By: Dr. Brown on 10-23-2022 Hemoglobin (Bld) [Mass/Vol] 17.2 g/dL 13.0-16.5 [facility] Blood lymphocytes/100 leukoc ytesOrdered By: Dr. Brown on 10-23-2022 Lymphocytes/100 WBC (Bld) 19.0 % 19-41 [facility] Blood monocytes/100 leukocyt esOrdered By: Dr. Brown on 10-23-2022 Monocytes/100 WBC (Bld) 9.6 % 0-10 [facility] Blood platelet mean volumeOr dered By: Dr. Brown on 10-23-2022 Platelet mean volume (Bld) [Entitic vol] 10.3 fL 6.2-12.0 [facility] Determination of erythrocyte mean corpuscular volume (MCV)Ordered By: Dr. Brown on 10-23-2022 MCV (RBC) [Entitic vol] 89.6 fL 80-94 [facility] Hematocrit Auto (Bld) [Volum e fraction]Ordered By: Dr. Brown on 10-23-2022 Hematocrit (Bld) [Volume fraction] 54.3 % 40-54 [facility] Laboratory - Chemistry and C hemistry - challengeOrdered By: Dr. Brown on 10-23-2022 CO2 [Moles/Vol] 32.0 mmol/L 21.0-32.0 [facility] Natriuretic peptide B (Bld) [Mass/Vol] 182.2 pg/mL 0-100 [facility] Urea nitrogen/Creatinine [Mass ratio] 13.0 mg/mg 10-20 [facility] Laboratory - Hematology and Cell countsOrdered By: Dr. Brown on 10-23-2022 Erythrocyte distribution width (RBC) [Entitic vol] 46.1 fL 35.1-43.9 [facility] Erythrocyte distribution width (RBC) [Ratio] 14.1 % 11.6-14.6 [facility] Immature granulocytes/100 WBC (Bld) 0.300 % 0.0-0.9 [facility] Comment on above: IG% - Immature Granu locytes (promyelocytes, myelocytes and metamyelocytes) > 1% indicates that a LEFT SHIFT is Present. MCH (RBC) [Entitic mass] 28.4 pg 27.0-32.0 [facility] Nucleated RBC/100 WBC (Bld) [Ratio] 0 % 0-5 [facility] MCHC Auto (RBC) [Mass/Vol]Or dered By: Dr. Brown on 10-23-2022 MCHC (RBC) [Mass/Vol] 31.7 g/dL 32-36 [facility] No Panel InformationOrdered By: Dr. Brown on 10-23-2022 Troponin I High Sensitivity 14 pg/mL 3.0-78.0 [facility] Comment on above: Please Note: New K[place] t Units and Gender Specific Reference Ranges. For more information see Policy Stat Procedure Abbott High Sensitivity Troponin (TNIH) and attachments. Estimated Creatinine Clearance Calc 104.04 ml/min [facility] Estimated GFR (MDRD) Amer 123 mL/min >60 [facility] Comment on above: GFR Calc Estimated GFR (MDRD) Non-Af Amer 102 mL/min >60 [facility] Comment on above: Non- GFR Calc Platelets bldOrdered By: Dr. Brown on 10-23-2022 Platelets (Bld) [#/Vol] 234 10*3/uL 150-450 [facility] Serum or plasma calcium scott urement (mass/volume)Ordered By: Dr. Brown on 10-23-2022 Calcium [Mass/Vol] 8.7 mg/dL 8.5-10.1 [facility] Serum or plasma creatinine m easurement (mass/volume)Ordered By: Dr. Brown on 10-23-2022 Creatinine [Mass/Vol] 0.84 mg/dL 0.70-1.30 [facility] Comment on above: The validity of the calculated GFR & GFRAA in patients over 70 years has not been determined. Clinical correlation is essential. Serum or plasma urea nitroge n measurement (mass/volume)Ordered By: Dr. Brown on 10-23-2022 Urea nitrogen [Mass/Vol] 11 mg/dL 7-18 [facility] Thin prep Papanicolaou smear with manual screeningOrdered By: Dr. Brown on 10-23-2022 Thin prep Papanicolaou smear with manual screening 6 5-15 [facility] Invasive Cardiology Clinic N oteon 08-24-2021 Invasive Cardiology Clinic Note . [facility] A Division of [facility] Gem Barr M.D., [place] [address] * Reason for VisitFOLLOW UP CHEST PAIN(1) [...] me to participate in your patient's care. Legal Administrative Assistant Statement: Transcribed for Dr. Barr by LEWIS , abrasive worker. Electronic Signatures: Gem Barr) (Signed 11:31) Authored: Letterhead Option, Reason for Visit, Vital Signs, Allergies/Meds, History of Present Illness, Past Medical, Surgical and Family History, ROS, Physical Exam, Results, Assessment and Plan, Legal Administrative Assistant Statement Km Phan (Media Operator) (Entered 15:30) Entered: Letterhead Option, Reason for Visit, Vital Signs, Allergies/Meds, History of Pr (more content not included)... Normal [employer] Echocardiogram-Completeon Echocardiogram-Comple te Study ID: [id number] [facility] A Division of [address] [address] Name: SOCORRO KELLEY JR Study Date: 08/17/2021 07:55 AM BP: 152/92 mmHg Patient Location: [facility] HR: 84 : 1970 Gender: Male Height: 69 in Age: 50 yrs Weight: 348 lb Reason For Study: Chest Pain NOS BSA: 2.6 m2 History: Age,Hypertension,Diabe kassy Ordering Physician: Gem Barr Referring Physician: Zacarias Cohn Performed By: Betsy Mendez RDCS Interpreting physician: Gem Barr MD Transthoracic Echocardiogram [...] mmHg MV P1/2t-pr: 94.6 msec E/LatE': 9.4 \\[id number] 0_Adult_WH{1}__ [id number] Normal [facility] Invasive Cardiology Clinic N oteon 08-02-2021 Invasive Cardiology Clinic Note . [facility] A Division of [facility] Gem Barr M.D., [place] [address] * Reason for VisitFOLLOW UP CHEST PAIN(1) [...] to con (more content not included)... Normal [employer] [facility] 01-29-2021 ER EMERGENCY ROOM NOTE CHIEF COMPLAINT: [...] up with his primary care physician and/or spanish professor. Normal [facility] GLYCOHEMOGLOBINon 01-06-2021 HbA1c (Bld) [Mass fraction] 6.43 % High 4.60-6.30 [facility] Comment on above: Performed By: #### % A1c #### [facility] [address] [place] [id number] SUE Flores MD LIPID PROFILE - FASTINGon Cholesterol [Mass/Vol] 152 mg/dL Normal <=200 [facility] Comment on above: Performed By: #### L IPID #### [facility] [address] [place] [id number] SUE Flores MD Cholesterol in HDL [Mass/Vol] 28 mg/dL Low 40-60 [facility] Comment on above: Performed By: #### L IPID #### [facility] [address] [place] [phone] SUE Flores MD Cholesterol in LDL [Mass/Vol] 85 mg/dL Normal 0-130 [facility] Comment on above: Performed By: #### L IPID #### [facility] [address] [place] [phone] SUE Flores MD COMMENT Recommended (Desirable) < 130mg/dL Moderate Risk 130-159 mg/dL High Risk: >/= 130 mg/dL Normal [facility] Comment on above: Performed By: #### L IPID #### [facility] [address] [place], [place] [phone] SUE Flores MD Triglyceride [Mass/Vol] 198 mg/dL High <=150 [facility] Comment on above: Performed By: #### L IPID #### [facility] [address] [place] [address] SUE Flores MD RENAL FUNCTION PANELon 01-06 Albumin [Mass/Vol] 4.4 g/dL Normal 3.5-5.0 [facility] Comment on above: Performed By: #### R FP #### [facility] [address] [place] [address] SUE Flores MD Calcium [Mass/Vol] 9.6 mg/dL Normal 8.4-10.2 [facility] Comment on above: Performed By: #### R FP #### [facility] [address] [place] [address] SUE Flores MD Chloride [Moles/Vol] 96 mmol/L Low 98-107 [facility] Comment on above: Performed By: #### R FP #### [facility] [address] [place] [address] SUE Flores MD Creatinine [Mass/Vol] 0.9 mg/dL Normal 0.7-1.3 [facility] Comment on above: Performed By: #### R FP #### [facility] [address] [place] [address] SUE Flores MD ECO2 29 mmol/L Normal 22-30 [facility] Comment on above: Performed By: #### R FP #### [facility] [address] [place], [place] [phone] SUE Flores MD EGFR-AF UKRAINIAN 109 mL/min/1.73m 2 Normal >=60 [facility] Comment on above: Performed By: #### R FP #### [facility] [address] [place], [place] [phone] SUE Flores MD EGFR-NON AF UKRAINIAN 90 mL/min/1.73 m 2 Normal >=60 [facility] Comment on above: Performed By: #### R FP #### [facility] [address] [place], [place] [phone] SUE Flores MD Glucose [Mass/Vol] 146 mg/dL High 70-99 [facility] Comment on above: Performed By: #### R FP #### [facility] [address] [place], [place] [phone] SUE Flores MD Phosphate [Mass/Vol] 4.2 mg/dL Normal 2.5-4.5 [facility] Comment on above: Performed By: #### R FP #### [facility] [address] [place], [place] [phone] SUE Flores MD Potassium [Moles/Vol] 4.0 mmol/L Normal 3.5-5.0 [facility] Comment on above: Performed By: #### R FP #### [facility] [address] [place], [place] [phone] SUE Flores MD Sodium [Moles/Vol] 136 mmol/L Low 137-145 [facility] Comment on above: Performed By: #### R FP #### [facility] [address] [place], [place] [phone] SUE Flores MD Urea nitrogen [Mass/Vol] 13 mg/dL Normal 9-20 [facility] Comment on above: Performed By: #### R FP #### [facility] [address] [place], [place] [phone] SUE Flores MD CHEST TWO VIEWSon 11-09-2020 CHEST TWO VIEWS TWO VIEWS OF THE [facility] CLINICAL HISTORY: Shortness of breath. PA and lateral views of the chest were performed and compared to prior exam of 02/01/19. The heart is normal size. Chronic changes are seen within the lungs. There is no consolidation, pleural effusion or pneumothorax. IMPRESSION: NO ACUTE PULMONARY DISEASE. BH Electronically signed by: FERNANDO DYER MD Approved By: FERNANDO DYER MD Date: 11/09/2020 3:55 PM Normal [facility] CBC PLT DIFFon 06-11-2020 BASO # 0.04 10 3/uL Normal 0.00-0.10 [facility] Comment on above: Performed By: #### C BC #### [facility] [address] [place] [address] SUE Flores MD Basophils/100 WBC (Bld) 0.5 % Normal 0.2-1.0 [facility] Comment on above: Performed By: #### C BC #### [facility] [address] [place] [address] SUE Flores MD EOS# 0.19 10 3/uL Normal 0.00-0.20 [facility] Comment on above: Performed By: #### C BC #### [facility] [address] [place] [address] SUE Flores MD Eosinophils/100 WBC (Bld) 2.3 % Normal 0.9-2.9 [facility] Comment on above: Performed By: #### C BC #### [facility] [address] [place] [address] SUE Flores MD Erythrocyte distribution width (RBC) [Ratio] 13.4 % Normal 11.5-15.5 [facility] Comment on above: Performed By: #### C BC #### [facility] [address] [place] [address] SUE Flores MD Hematocrit (Bld) [Volume fraction] 46.5 % Normal 42.0-52.0 [facility] Comment on above: Performed By: #### C BC #### [facility] [address] [place] [address] SUE Flores MD Hemoglobin (Bld) [Mass/Vol] 16.0 g/dL Normal 14.0-18.0 [facility] Comment on above: Performed By: #### C BC #### [facility] [address] [place] [address] SUE Flores MD IG# 0.04 10 3/uL Normal [facility] Comment on above: Performed By: #### C BC #### [facility] [address] [place] [address] SUE Flores MD IG% 0.5 % Normal [facility] Comment on above: Performed By: #### C BC #### [facility] [address] [place] [address] SUE Flores MD LYMPH# 1.41 10 3/uL Normal 1.30-2.90 [facility] Comment on above: Performed By: #### C BC #### [facility] [address] [place] [address] SUE Flores MD Lymphocytes/100 WBC (Bld) 17.4 % Low 20.5-45.5 [facility] Comment on above: Performed By: #### C BC #### [facility] [address] [place] [address] SUE Flores MD MCH (RBC) [Entitic mass] 30.1 pg Normal 27.0-31.0 [facility] Comment on above: Performed By: #### C BC #### [facility] [address] [place] [address] SUE Flores MD MCHC (RBC) [Mass/Vol] 34.4 g/dL Normal 32.0-36.0 [facility] Comment on above: Performed By: #### C BC #### [facility] [address] [place] [address] SUE Flores MD MCV (RBC) [Entitic vol] 87.6 fL Normal 80.0-94.0 [facility] Comment on above: Performed By: #### C BC #### [facility] [address] [place] [address] SUE Flores MD MONO# 0.67 10 3/uL Normal 0.30-0.80 [facility] Comment on above: Performed By: #### C BC #### [facility] [address] [place] [address] SUE Flores MD Monocytes/100 WBC (Bld) 8.3 % Normal 5.5-11.7 [facility] Comment on above: Performed By: #### C BC #### [facility] [address] [place] [address] SUE Flores MD Morphology Rocky (Bld) [Interp] Normal [facility] Comment on above: Performed By: #### C BC #### [facility] [address] [place] [address] SUE Flores MD NEUT# 5.75 10 3/uL High 2.20-4.80 [facility] Comment on above: Performed By: #### C BC #### [facility] [address] [place] [address] SUE Flores MD Neutrophils/100 WBC (Bld) 71.0 % High 43.0-65.0 [facility] Comment on above: Performed By: #### C BC #### [facility] [address] [place] [address] SUE Flores MD NRBC# 0.00 10 3/uL Normal [facility] Comment on above: Performed By: #### C BC #### [facility] [address] [place] [address] SUE Flores MD Nucleated RBC/100 WBC (Bld) [Ratio] 0.0 % Normal [facility] Comment on above: Performed By: #### C BC #### [facility] [address] [place] [address] SUE Flores MD Platelet mean volume (Bld) [Entitic vol] 8.4 fL Normal 7.4-10.4 [facility] Comment on above: Performed By: #### C BC #### [facility] [address] [place] [address] SUE Flores MD PLT 221 10 3/uL Normal 130-400 [facility] Comment on above: Performed By: #### C BC #### [facility] [address] [place], [place] [address] SUE Flores MD RBC 5.31 10 6/uL Normal 4.70-6.10 [facility] Comment on above: Performed By: #### C BC #### [facility] [address] [place] [address] SUE Flores MD WBC 8.10 10 3/uL Normal 4.70-10.80 [facility] Comment on above: Performed By: #### C BC #### [facility] [address] [place] [address] SUE Flores MD CMPon 06-11-2020 Albumin [Mass/Vol] 4.1 g/dL Normal 3.5-5.0 [facility] Comment on above: Performed By: #### C MP #### [facility] [address] [place] [address] SUE Flores MD ALP [Catalytic activity/Vol] 72 U/L Normal 38-126 [facility] Comment on above: Performed By: #### C MP #### [facility] [address] [place] [address] SUE Flores MD ALT [Catalytic activity/Vol] 17 U/L Low 21-72 [facility] Comment on above: Performed By: #### C MP #### [facility] [address] [place] [address] SUE Flores MD AST [Catalytic activity/Vol] 21 U/L Normal 17-59 [facility] Comment on above: Performed By: #### C MP #### [facility] [address] [place] [address] SUE Flores MD Bilirubin [Mass/Vol] 0.6 mg/dL Normal 0.2-1.3 [facility] Comment on above: Performed By: #### C MP #### [facility] [address] [place] [address] SUE Flores MD Calcium [Mass/Vol] 8.9 mg/dL Normal 8.4-10.2 [facility] Comment on above: Performed By: #### C MP #### [facility] [address] [place] [address] SUE Flores MD Chloride [Moles/Vol] 99 mmol/L Normal 98-107 [facility] Comment on above: Performed By: #### C MP #### [facility] [address] [place] [address] SUE Flores MD Creatinine [Mass/Vol] 0.7 mg/dL Normal 0.7-1.3 [facility] Comment on above: Performed By: #### C MP #### [facility] [address] [place] [address] SUE Flores MD ECO2 30 mmol/L Normal 22-30 [facility] Comment on above: Performed By: #### C MP #### [facility] [address] [place] [address] SUE Flores MD EGFR-AF UKRAINIAN 146 mL/min/1.73m 2 Normal >=60 [facility] Comment on above: Performed By: #### C MP #### [facility] [address] [place] [address] SUE Flores MD EGFR-NON AF UKRAINIAN 120 mL/min/1.73 m 2 Normal >=60 [facility] Comment on above: Performed By: #### C MP #### [facility] [address] [place] [address] SUE Flores MD Glucose [Mass/Vol] 125 mg/dL High 70-99 [facility] Comment on above: Performed By: #### C MP #### [facility] [address] [place] [address] SUE Flores MD Potassium [Moles/Vol] 3.6 mmol/L Normal 3.5-5.0 [facility] Comment on above: Performed By: #### C MP #### [facility] [address] [place] [address] SUE Flores MD Protein [Mass/Vol] 7.4 g/dL Normal 6.3-8.2 [facility] Comment on above: Performed By: #### C MP #### [facility] [address] [place] [address] SUE Flores MD Sodium [Moles/Vol] 136 mmol/L Low 137-145 [facility] Comment on above: Performed By: #### C MP #### [facility] [address] [place] [address] SUE Flores MD Urea nitrogen [Mass/Vol] 11 mg/dL Normal 9-20 [facility] Comment on above: Performed By: #### C MP #### [facility] [address] [place] [address] SUE Flores MD GLYCOHEMOGLOBINon 06-11-2020 HbA1c (Bld) [Mass fraction] 6.22 % Normal 4.00-6.30 [facility] Comment on above: Performed By: #### % A1c #### [facility] [address] [place], [place] [address] SUE Flores MD LIPID PROFILE - FASTINGon Cholesterol [Mass/Vol] 147 mg/dL Normal <=200 [facility] Comment on above: Performed By: #### L IPID #### [facility] [address] [place] [address] SUE Flores MD Cholesterol in HDL [Mass/Vol] 24 mg/dL Low 40-60 [facility] Comment on above: Performed By: #### L IPID #### [facility] [address] [place] [address] SUE Flores MD Cholesterol in LDL [Mass/Vol] 89 mg/dL Normal 0-130 [facility] Comment on above: Performed By: #### L IPID #### [facility] [address] [place], [place] [address] SUE Flores MD COMMENT Recommended (Desirable) < 130mg/dL Moderate Risk 130-159 mg/dL High Risk: >/= 130 mg/dL Normal [facility] Comment on above: Performed By: #### L IPID #### [facility] [address] [place], [place] [address] SUE Flores MD Triglyceride [Mass/Vol] 167 mg/dL High <=150 [facility] Comment on above: Performed By: #### L IPID #### [facility] [address] [place], [place] [address] SUE Flores MD URIC ACIDon 06-11-2020 Urate [Mass/Vol] 5.6 mg/dL Normal 3.5-8.5 [facility] Comment on above: Performed By: #### U R #### [facility] [address] [place] [address] SUE Flores MD Vital Signs Date Time Vital Sign Value Performing Clinician Adriano [email or web address] 10-04-2024 21:13-0400 Reason For Taking VItal Signs DR ROBERT SCHMITZ MD [address] [place] [address] 10-04-2024 19:37-0400 Heart rate 71 /min DR ROBERT Walls [address] [place] [address] 10-04-2024 19:37-0400 Reason For Taking VItal Signs DR ROBERT SCHMITZ MD [address] [place] [address] 10-04-2024 19:37-0400 Respiratory rate 18 /min DR ROBERT Walls [address] [place] [address] 10-04-2024 19:14-0400 Heart rate 66 /min DR ROBERT Walls [address] [place] [address] 10-04-2024 19:14-0400 Blood Pressure Cuff Size DR ROBERT SCHMITZ MD [address] [place] [address] 10-04-2024 19:14-[address] ROBERT SCHMITZ MD [address] [place] [address] 10-04-2024 19:14-[address] ROBERT SCHMITZ MD [address] [place] [address] 10-04-2024 19:14-0400 Body temperature 97.7 [degF] DR ROBERT Walls [address] [place] [address] 10-04-2024 19:14-0400 Diastolic Blood Pressure Non-Invasive 90 mm[Hg] DR ROBERT SCHMITZ MD [address] [place] [address] 10-04-2024 19:14-0400 Reason For Taking VItal Signs DR ROBERT SCHMITZ MD [address] [place] [address] 10-04-2024 19:14-0400 Respiratory rate 16 /min DR ROBERT Walls [address] [place] [address] 10-04-2024 19:14-0400 Systolic Blood Pressure Non-Invasive 138 mm[Hg] DR ROBERT SCHMITZ MD [address] [place] [address] 10-04-2024 16:28-0400 Heart rate 72 /min DR ROBERT Walls [address] [place] [address] 10-04-2024 15:31-0400 Heart rate 72 /min DR ROBERT Walls [address] [place] [address] 10-04-2024 15:31-0400 Blood Pressure Cuff Size DR ROBERT SCHMITZ MD [address] [place] [address] 10-04-2024 15:31-[address] ROBERT SCHMITZ MD [address] [place] [address] 10-04-2024 15:31-[address] ROBERT SCHMITZ MD [address] [place] [address] 10-04-2024 15:31-0400 Body temperature 97.52 [degF] DR ROBERT Walls [address] [place] [address] 10-04-2024 15:31-0400 Diastolic Blood Pressure Non-Invasive 72 mm[Hg] DR ROBERT SCHMITZ MD [address] [place] [address] 10-04-2024 15:31-0400 Respiratory rate 16 /min DR ROBERT Walls [address] [place] [address] 10-04-2024 15:31-0400 Systolic Blood Pressure Non-Invasive 120 mm[Hg] DR ROBERT SCHMITZ MD [address] [place] [address] 10-04-2024 15:02-0400 Blood Pressure Cuff Size DR ROBERT SCHMITZ MD [address] [place] [address] 10-04-2024 15:02-[address] ROBERT SCHMITZ MD [address] [place] [address] 10-04-2024 15:02-[address] ROBERT SCHMITZ MD [address] [place] [address] 10-04-2024 15:02-0400 Body temperature 97.88 [degF] DR ROBERT Walls [address] [place] [address] 10-04-2024 15:02-0400 Diastolic Blood Pressure Non-Invasive 78 mm[Hg] DR ROBERT SCHMITZ MD [address] [place] [address] 10-04-2024 15:02-0400 Heart rate 73 /min DR ROBERT Walls [address] [place] [address] 10-04-2024 15:02-0400 Systolic Blood Pressure Non-Invasive 116 mm[Hg] DR ROBERT SCHMITZ MD [address] [place] [address] 10-04-2024 11:59-0400 Heart rate 61 /min DR ROBERT Walls [address] [place] [address] 10-04-2024 07:54-0400 Heart rate 66 /min DR ROBERT Walls [address] [place] [address] 10-04-2024 07:46-0400 Heart rate 64 /min DR ROBERT Walls [address] [place] [address] 10-03-2024 16:05-0400 Heart rate 74 /min DR ROBERT Walls [address] [place] [address] 10-02-2024 06:28-0400 Body height 177.[address] ROBERT Walls [address] [place] [address] 10-02-2024 06:28-0400 Body weight 140.[address] ROBERT Walls [address] [place] [address] 10-02-2024 06:28-0400 Body weight 44.38 kg/m2 DR ROBERT Walls [address] [place] [address] 10-02-2024 05:00-0400 Diastolic Blood Pressure Non-Invasive 68 mm[Hg] DELORES DURESKA DO [facility] 10-02-2024 05:00-0400 Heart rate 116 /min DELORES DURESKA DO [facility] 10-02-2024 05:00-0400 Systolic Blood Pressure Non-Invasive 108 mm[Hg] DELORES DURESKA DO [facility] 10-02-2024 04:00-0400 Diastolic Blood Pressure Non-Invasive 70 mm[Hg] DELORES DURESKA DO [facility] 10-02-2024 04:00-0400 Heart rate 125 /min DELORES DURESKA DO [facility] 10-02-2024 04:00-0400 Systolic Blood Pressure Non-Invasive 101 mm[Hg] DELORES DURESKA DO [facility] 10-02-2024 02:31-0400 Body weight 143 kg DELORES DURESKA DO [facility] 10-02-2024 02:15-0400 Diastolic Blood Pressure Non-Invasive 90 mm[Hg] DELORES DURESKA DO [facility] 10-02-2024 02:15-0400 Heart rate 120 /min DELORES DURESKA DO [facility] 10-02-2024 02:15-0400 Respiratory rate 18 /min DELORES DURESKA DO [facility] 10-02-2024 02:15-0400 Systolic Blood Pressure Non-Invasive 106 mm[Hg] DELORES DURESKA DO [facility] 10-02-2024 00:27-0400 Body temperature 98.06 [degF] DELORES MURO DO [facility] 02-01-2024 16:08-0400 Heart rate 72 /min CINDY [...] Blood Pressure Location DR SAMY JONES MD [facility] 01-31-2024 01:18-[address] SAMY JONES MD [facility] 01-31-2024 01:18-0400 Diastolic Blood Pressure Non-Invasive 71 mm[Hg] DR SAMY JONES MD [facility] 01-31-2024 01:18-0400 Heart rate 90 /min DR SAMY JONES MD [facility] 01-31-2024 01:18-0400 Mean blood pressure 82 mm[Hg] DR SAMY JONES MD [facility] 01-31-2024 01:18-0400 Reason For Taking VItal Signs DR SAMY JONES MD [facility] 01-31-2024 01:18-0400 Respiratory rate 18 /min DR SAMY JONES MD [facility] 01-31-2024 01:18-0400 Systolic Blood Pressure Non-Invasive 111 mm[Hg] DR SAMY JONES MD [facility] 01-31-2024 01:07-[address] SAMY JONES MD [facility] 01-31-2024 01:07-[address] SAMY JONES MD [facility] 01-31-2024 01:07-0400 Diastolic Blood Pressure Non-Invasive 61 mm[Hg] DR SAMY JONES MD [facility] 01-31-2024 01:07-0400 Heart rate 85 /min DR SAMY JONES MD [facility] 01-31-2024 01:07-0400 Mean blood pressure 71 mm[Hg] DR SAMY JONES MD [facility] 01-31-2024 01:07-0400 Reason For Taking VItal Signs DR SAMY JONES MD [facility] 01-31-2024 01:07-0400 Respiratory rate 12 /min DR SAMY JONES MD [facility] 01-31-2024 01:07-0400 Systolic Blood Pressure Non-Invasive 90 mm[Hg] DR SAMY JONES MD [facility] 01-31-2024 00:58-[address] SAMY JONES MD [facility] 01-31-2024 00:58-[address] SAMY JONES MD [facility] 01-31-2024 00:58-0400 Diastolic Blood Pressure Non-Invasive 64 mm[Hg] DR SAMY JONES MD [facility] 01-31-2024 00:58-0400 Heart rate 89 /min DR SAMY JONES MD [facility] 01-31-2024 00:58-0400 Mean blood pressure 76 mm[Hg] DR SAMY JONES MD [facility] 01-31-2024 00:58-0400 Reason For Taking VItal Signs DR SAMY JONES MD [facility] 01-31-2024 00:58-0400 Respiratory rate 13 /min DR SAMY JONES MD [facility] 01-31-2024 00:58-0400 Systolic Blood Pressure Non-Invasive 97 mm[Hg] DR SAMY JONES MD [facility] 01-30-2024 20:22-0400 SaO2% (BldA) [Mass fraction] 88.8 % DR SAMY JONES MD [facility] 01-30-2024 20:15-0400 Body height 175.[address] SAMY JONES MD [facility] 01-30-2024 20:15-0400 Body temperature 99.32 [degF] DR SAMY JONES MD [facility] 01-30-2024 20:15-0400 Body weight 145.[address] SAMY JONES MD [facility] 01-30-2024 20:15-0400 Heart rate 133 /min DR SAMY JONES MD [facility] 08-09-2023 21:07-0400 Blood Pressure Cuff Size DR OLLIE BROOKE MD [facility] 08-09-2023 21:07-[address] OLLIE BROOKE MD [facility] 08-09-2023 21:07-[address] OLLIE BROOKE MD [facility] 08-09-2023 21:07-0400 Body height 177.[address] OLLIE BROOKE MD [facility] 08-09-2023 21:07-0400 Body temperature 96.98 [degF] DR OLLIE BROOKE MD [facility] 08-09-2023 21:07-0400 Body weight 155.[address] OLLIE BROOKE MD [facility] 08-09-2023 21:07-0400 Diastolic Blood Pressure Non-Invasive 78 mm[Hg] DR OLLIE BROOKE MD [facility] 08-09-2023 21:07-0400 Heart rate 70 /min DR OLLIE BROOKE MD [facility] 08-09-2023 21:07-0400 Reason For Taking VItal Signs DR OLLIE BROOKE MD [facility] 08-09-2023 21:07-0400 Respiratory rate 22 /min DR OLLIE BROOKE MD [facility] 08-09-2023 21:07-0400 Systolic Blood Pressure Non-Invasive 121 mm[Hg] DR OLLIE BROOKE MD [facility] 06-13-2023 01:18-0500 Diastolic Blood Pressure Non-Invasive 78 mm[Hg] DEMI HUSTON MD [facility] 06-13-2023 01:18-0500 Heart rate 80 /min DEMI HUSTON MD [facility] 06-13-2023 01:18-0500 Respiratory rate 18 /min DEMI HUSTON MD [facility] 06-13-2023 01:18-0500 Systolic Blood Pressure Non-Invasive 142 mm[Hg] DEMI HUSTON MD [facility] 06-13-2023 00:35-0500 Heart rate 74 /min DEMI HUSTON MD [facility] 06-13-2023 00:35-0500 Respiratory rate 20 /min DEMI HUSTON MD [facility] 06-13-2023 00:03-0500 Body temperature 97.7 [degF] DEMI HUSTON MD [facility] 06-13-2023 00:03-0500 Diastolic Blood Pressure Non-Invasive 84 mm[Hg] DEMI HUSTON MD [facility] 06-13-2023 00:03-0500 Heart rate 67 /min DEMI HUSTON MD [facility] 06-13-2023 00:03-0500 Respiratory rate 20 /min DEMI HUSTON MD [facility] 06-13-2023 00:03-0500 Systolic Blood Pressure Non-Invasive 153 mm[Hg] DEMI HUSTON MD [facility] 06-09-2023 21:35-0500 Heart rate 60 /min MOY WATTS MD [address] 06-09-2023 21:35-0500 Reason For Taking VItal Signs MOY WATTS MD [address] [place] [address] 06-09-2023 21:35-0500 Respiratory rate 18 /min MOY WATTS MD [address] [place] [address] 06-09-2023 19:40-0500 Blood Pressure Cuff Size MOY WATTS MD [address] [place] [address] 06-09-2023 19:40-0500 Blood Pressure Location MOY WATTS MD [address] [place] [address] 06-09-2023 19:40-0500 Blood Pressure Method MOY WATTS MD [address] [place] [address] 06-09-2023 19:40-0500 Body temperature 98.24 [degF] MOY WATTS MD [address] [place] [address] 06-09-2023 19:40-0500 Diastolic Blood Pressure Non-Invasive 66 mm[Hg] MOY WATTS MD [address] [place] [address] 06-09-2023 19:40-0500 Heart rate 63 /min MOY WATTS MD [address] [place] [address] 06-09-2023 19:40-0500 Reason For Taking VItal Signs MOY WATTS MD [address] [place] [address] 06-09-2023 19:40-0500 Respiratory rate 18 /min MOY WATTS MD [address] [place] [address] 06-09-2023 19:40-0500 Systolic Blood Pressure Non-Invasive 112 mm[Hg] MOY WATTS MD [address] [place] [address] 06-09-2023 19:29-0500 Heart rate 63 /min MOY WATTS MD [address] [place] [address] 06-09-2023 16:56-0500 Heart rate 66 /min MOY WATTS MD [address] [place] [address] 06-09-2023 16:04-0500 Blood Pressure Cuff Size MOY WATTS MD [address] [place] [address] 06-09-2023 16:04-0500 Blood Pressure Location MOY WATTS MD [address] [place] [address] 06-09-2023 16:04-0500 Blood Pressure Method MOY WATTS MD [address] [place] [address] 06-09-2023 16:04-0500 Body temperature 97.88 [degF] MOY WATTS MD [address] [place] [address] 06-09-2023 16:04-0500 Diastolic Blood Pressure Non-Invasive 78 mm[Hg] MOY WATTS MD [address] [place] [address] 06-09-2023 16:04-0500 Reason For Taking VItal Signs MOY WATTS MD [address] [place] [address] 06-09-2023 16:04-0500 Respiratory rate 18 /min MOY WATTS MD [address] [place] [address] 06-09-2023 16:04-0500 Systolic Blood Pressure Non-Invasive 138 mm[Hg] MOY WATTS MD [address] [place] [address] 06-09-2023 11:17-0500 Blood Pressure Cuff Size MOY WATTS MD [address] [place] [address] 06-09-2023 11:17-0500 Blood Pressure Location MOY WATTS MD [address] [place] [address] 06-09-2023 11:17-0500 Blood Pressure Method MOY WATTS MD [address] [place] [address] 06-09-2023 11:17-0500 Body temperature 97.88 [degF] MOY WATTS MD [address] [place] [address] 06-09-2023 11:17-0500 Diastolic Blood Pressure Non-Invasive 64 mm[Hg] MOY WATTS MD [address] [place] [address] 06-09-2023 11:17-0500 Systolic Blood Pressure Non-Invasive 126 mm[Hg] MOY WATTS MD [address] [place] [address] 06-09-2023 08:54-0500 Heart rate 66 /min MOY WATTS MD [address] [place] [address] 06-08-2023 23:49-0500 Mean blood pressure 77 mm[Hg] MOY WATTS MD [address] [place] [address] 06-08-2023 17:50-0500 Heart rate 65 /min MOY WATTS MD [address] [place] [address] 06-08-2023 14:06-0500 Heart rate 58 /min MOY WATTS MD [address] [place] [address] 06-08-2023 07:05-0500 Mean blood pressure 90 mm[Hg] MOY WATTS MD [address] [place] [address] 06-07-2023 13:36-0500 Body height 176 cm MOY WATTS MD [facility] 06-07-2023 13:36-0500 Body weight 152.9 kg MOY WATTS MD [facility] 06-07-2023 13:36-0500 Body weight 49.36 kg/m2 MOY WATTS MD [facility] 05-05-2023 20:50-0500 Diastolic Blood Pressure Non-Invasive 79 mm[Hg] DEMI HUSTON MD [facility] 05-05-2023 20:50-0500 Heart rate 84 /min DEMI HUSTON MD [facility] 05-05-2023 20:50-0500 Respiratory rate 20 /min DEMI HUSTON MD [facility] 05-05-2023 20:50-0500 Systolic Blood Pressure Non-Invasive 132 mm[Hg] DEMI HUSTON MD [facility] 05-05-2023 17:16-0500 Body height 175.3 cm DEMI HUSTON MD [facility] 05-05-2023 17:16-0500 Body temperature 97.88 [degF] DEMI HUSTON MD [facility] 05-05-2023 17:16-0500 Body weight 144.4 kg DEMI HUSTON MD [facility] 05-05-2023 17:16-0500 Diastolic Blood Pressure Non-Invasive 88 mm[Hg] DEMI HUSTON MD [facility] 05-05-2023 17:16-0500 Heart rate 68 /min DEMI HUSTON MD [facility] 05-05-2023 17:16-0500 Respiratory rate 20 /min DEMI HUSTON MD [facility] 05-05-2023 17:16-0500 Systolic Blood Pressure Non-Invasive 142 mm[Hg] DEMI HUSTON MD [facility] 02-12-2023 07:06-0400 Body height 175.26 cm [facility] 02-12-2023 07:06-0400 Body mass index (BMI) [Ratio] 49.5 kg/m2 [facility] 02-12-2023 07:06-0400 Body temperature 97.8 [degF] [facility] 02-12-2023 07:06-0400 Body weight 152.1 kg [facility] 02-12-2023 07:06-0400 Diastolic blood pressure 101 mm[Hg] [facility] 02-12-2023 07:06-0400 Heart rate 98 /min [facility] 02-12-2023 07:06-0400 Respiratory rate 16 /min [facility] 02-12-2023 07:06-0400 SaO2% (BldA) [Mass fraction] 95 % [facility] 02-12-2023 07:06-0400 Systolic blood pressure 132 mm[Hg] [facility] 12-23-2022 07:51-0400 Diastolic Blood Pressure Non-Invasive 68 1 MOY WATTS MD [facility] 12-23-2022 07:51-0400 Heart rate 61 /min MOY WATTS MD [facility] 12-23-2022 07:51-0400 Respiratory rate 12 /min MOY WATTS MD [facility] 12-23-2022 07:51-0400 Systolic Blood Pressure Non-Invasive 106 1 MOY WATTS MD [facility] 12-23-2022 07:39-0400 Diastolic Blood Pressure Non-Invasive 60 1 MOY WATTS MD [facility] 12-23-2022 07:39-0400 Heart rate 64 /min MOY WATTS MD [address] [place] [address] 12-23-2022 07:39-0400 Respiratory rate 20 /min MOY WATTS MD [facility] 12-23-2022 07:39-0400 Systolic Blood Pressure Non-Invasive 97 1 MOY WATTS MD [address] [place] [address] 12-23-2022 07:34-0400 Diastolic Blood Pressure Non-Invasive 59 1 MOY WATTS MD [facility] 12-23-2022 07:34-0400 Heart rate 62 /min MOY WATTS MD [facility] 12-23-2022 07:34-0400 Respiratory rate 16 /min MOY WATTS MD [facility] 12-23-2022 07:34-0400 Systolic Blood Pressure Non-Invasive 74 1 MOY WATTS MD [address] [place] [address] 12-23-2022 07:24-0400 Body temperature 97.34 [degF] MOY WATTS MD [facility] 12-23-2022 07:20-0400 Heart rate 73 /min MOY WATTS MD [facility] 12-23-2022 07:20-0400 Respiratory Rate - Anes 22 br/min MOY WATTS MD [facility] 12-23-2022 07:15-0400 Heart rate 91 /min MOY WATTS MD [facility] 12-23-2022 07:15-0400 Respiratory Rate - Anes 18 br/min MOY WATTS MD [address] 12-23-2022 06:37-0400 Body height 175.3 cm MOY WATTS MD [facility] 12-23-2022 06:34-0400 Body height 175.3 cm MOY WATTS MD [facility] 12-23-2022 06:34-0400 Body temperature 95.54 [degF] MOY WATTS MD [facility] 12-23-2022 06:34-0400 Body weight 144 kg MOY WATTS MD [facility] 10-27-2022 06:49-0400 Body temperature 97.7 [degF] DR OLLIE BROOKE MD [facility] 10-27-2022 06:49-0400 Diastolic Blood Pressure Non-Invasive [address] OLLIE BROOKE MD [facility] 10-27-2022 06:49-0400 Heart rate 103 /min DR OLLIE BROOKE MD [facility] 10-27-2022 06:49-0400 Respiratory rate 22 /min DR OLLIE BROOKE MD [facility] 10-27-2022 06:49-0400 Systolic Blood Pressure Non-Invasive [address] OLLIE BROOKE MD [facility] 10-27-2022 06:14-0400 Body temperature 98.06 [degF] DR OLLIE BROOKE MD [facility] 10-27-2022 06:14-0400 Diastolic Blood Pressure Non-Invasive [address] OLLIE BROOKE MD [facility] 10-27-2022 06:14-0400 Heart rate 105 /min DR OLLIE BROOKE MD [facility] 10-27-2022 06:14-0400 Respiratory rate 22 /min DR OLLIE BROOKE MD [facility] 10-27-2022 06:14-0400 Systolic Blood Pressure Non-Invasive [address] OLLIE BROOKE MD [facility] 10-27-2022 05:05-0400 Body height 175.[address] OLLIE BROOKE MD [facility] 10-27-2022 05:05-0400 Body temperature 98.06 [degF] DR OLLIE BROOKE MD [facility] 10-27-2022 05:05-0400 Body weight [address] OLLIE BROOKE MD [facility] 10-27-2022 05:05-0400 Diastolic Blood Pressure Non-Invasive [address] OLLIE BROOKE MD [facility] 10-27-2022 05:05-0400 Heart rate 88 /min DR OLLIE BROOKE MD [facility] 10-27-2022 05:05-0400 Respiratory rate 22 /min DR OLLIE BROOKE MD [facility] 10-27-2022 05:05-0400 Systolic Blood Pressure Non-Invasive [address] OLLIE BROOKE MD [facility] 10-25-2022 01:00-0400 Heart rate 99 /min DEMI HUSTON MD [facility] 10-25-2022 01:00-0400 Systolic Blood Pressure Non-Invasive 139 1 DEMI HUSTON MD [facility] 10-25-2022 00:00-0400 Diastolic Blood Pressure Non-Invasive 94 1 DEMI HUSTON MD [facility] 10-25-2022 00:00-0400 Heart rate 102 /min DEMI HUSTON MD [facility] 10-25-2022 00:00-0400 Respiratory rate 18 /min DEMI HUSTON MD [facility] 10-25-2022 00:00-0400 Systolic Blood Pressure Non-Invasive 132 1 DEMI HUSTON MD [facility] 10-24-2022 23:21-0400 Body height 175.3 cm DEMI HUSTON MD [facility] 10-24-2022 23:21-0400 Body temperature 98.24 [degF] DEMI HUSTON MD [facility] 10-24-2022 23:21-0400 Body weight 139 kg DEMI HUSTON MD [facility] 10-24-2022 23:21-0400 Diastolic Blood Pressure Non-Invasive 99 1 DEMI HUSTON MD [facility] 10-24-2022 23:21-0400 Heart rate 105 /min DEMI HUSTON MD [facility] 10-24-2022 23:21-0400 Respiratory rate 19 /min DEMI HUSTON MD [facility] 10-24-2022 23:21-0400 Systolic Blood Pressure Non-Invasive 146 1 DEMI HUSTON MD [facility] 10-23-2022 10:51-0400 Diastolic blood pressure 76 mm[Hg] [facility] 10-23-2022 10:51-0400 Heart rate 73 /min [facility] 10-23-2022 10:51-0400 Respiratory rate 15 /min [facility] 10-23-2022 10:51-0400 SaO2% (BldA) [Mass fraction] 98 % [facility] 10-23-2022 10:51-0400 Systolic blood pressure 148 mm[Hg] [facility] 10-23-2022 05:58-0400 Body height 175.26 cm [facility] 10-23-2022 05:58-0400 Body mass index (BMI) [Ratio] 47.7 kg/m2 [facility] 10-23-2022 05:58-0400 Body temperature 97.6 [degF] [facility] 10-23-2022 05:58-0400 Body weight 146.8 kg [facility] 07-15-2022 21:40-0500 Diastolic Blood Pressure Non-Invasive 85 1 JEREMIE MCCORMACK MD [facility] 07-15-2022 21:40-0500 Heart rate 72 /min JEREMIE MCCORMACK MD [facility] 07-15-2022 21:40-0500 Respiratory rate 18 /min JEREMIE MCCORMACK MD [facility] 07-15-2022 21:40-0500 Systolic Blood Pressure Non-Invasive 148 1 JEREMIE MCCORMACK MD [facility] 07-15-2022 21:10-0500 Reason For Taking VItal Signs JEREMIE MCCORMACK MD [facility] 07-15-2022 20:42-0500 Body temperature 98.06 [degF] JEREMIE MCCORMACK MD [facility] 07-15-2022 20:42-0500 Diastolic Blood Pressure Non-Invasive 95 1 JEREMIE MCCORMACK MD [facility] 07-15-2022 20:42-0500 Heart rate 81 /min JEREMIE MCCORMACK MD [facility] 07-15-2022 20:42-0500 Respiratory rate 18 /min JEREMIE MCCORMACK MD [facility] 07-15-2022 20:42-0500 Systolic Blood Pressure Non-Invasive 149 1 JEREMIE MCCORMACK MD [facility] 07-11-2022 08:21-0500 Body height 175.3 cm MALORIE PEGUERO MD [facility] 07-11-2022 08:21-0500 Body temperature 97.7 [degF] MALORIE PEGUERO MD [facility] 07-11-2022 08:21-0500 Body weight 148.6 kg MALORIE PEGUERO MD [facility] 07-11-2022 08:21-0500 Diastolic Blood Pressure Non-Invasive 80 1 MALORIE PEGUERO MD [facility] 07-11-2022 08:21-0500 Heart rate 88 /min MALORIE PEGUERO MD [facility] 07-11-2022 08:21-0500 Respiratory rate 24 /min MALORIE PEGUERO MD [facility] 07-11-2022 08:21-0500 Systolic Blood Pressure Non-Invasive 150 1 MALORIE PEGUERO MD [facility] Encounters Encounter Date Encounter Type Care Provider Facility Start: 10-30-2024 ambulatory Isadora Correa Facility :[facility] Start: 10-28-2024 ambulatory Dolly Marino OLS Facili ty:[facility] Start: 10-24-2024 ambulatory Dollytheresa Skya OLS Facili ty:[facility] Start: 10-16-2024 End: 10-23-2024 Evaluation and management of inpatient NANI QUINTANA DO [facility] Start: 10-16-2024 End: 10-16-2024 Emergency department patient visit JAKE Guo MAXWE[facility] Start: 10-02-2024 End: 10-04-2024 Evaluation and management of inpatient DR ROBERT SCHMITZ MD [facility] Start: 10-02-2024 End: 10-02-2024 Emergency department patient visit DELORES MURO DO [facility] Start: 09-05-2024 ambulatory [facility]ORA CORREA [facility] TECHNIC[facility]-CATCHER HELPER Facility:[facility] Start: 08-29-2024 End: 08-29-2024 Emergency department patient visit CIRILO PATEL DO Facility:[facility] Start: 08-27-2024 End: 08-27-2024 ambulatory [facility]A [facility]A [facility] TECHNICIAN-CATCHER HELPER Facility:[facility] Start: 08-13-2024 End: 08-13-2024 Emergency department patient visit DR WILNER JOE MD Facility:[facility] Start: 05-14-2024 End: 05-14-2024 ambulatory [facility]A [facility] TECHNICIAN-CATCHER HELPER [facility] Start: 05-14-2024 End: 05-14-2024 Patient encounter procedure [facility]A [facility]A [facility] TECHNICIAN-CATCHER HELPER [facility] Start: 03-25-2024 ambulatory [facility]A COR[facility]A [facility] TECHNICIAN-CATCHER HELPER [facility] Start: 03-25-2024 End: 03-29-2024 ambulatory [facility] TECHNICIAN-CATCHER HELPER [facility] Start: 03-25-2024 End: 03-29-2024 Outreach Lab [facility] TECHNICIAN-CATCHER HELPER [facility] Start: 02-16-2024 End: 02-16-2024 ambulatory [facility]A CORREA [facility] TECHNICIAN-CATCHER HELPER [facility] Start: 02-16-2024 End: 02-16-2024 Patient encounter procedure [facility]ORA COR[facility]A [facility] TECHNICIAN-CATCHER HELPER [facility] Start: 02-12-2024 End: 02-12-2024 ambulatory [facility]A [facility] TECHNICIAN-CATCHER HELPER [facility] Start: 02-12-2024 End: 02-12-2024 Patient encounter procedure [facility]A COR[facility]A [facility] TECHNICIAN-CATCHER HELPER [facility] Start: 01-31-2024 End: 02-01-2024 Evaluation and management of inpatient ISADORA CORREA Facility:[facility] Start: 01-30-2024 End: 01-31-2024 Emergency department patient visit DR SAMY JONES MD [facility] Start: 10-11-2023 End: 10-11-2023 ambulatory [facility] Start: 08-22-2023 End: 08-22-2023 ambulatory ISADORADANE CORREA Facility:[facility] Start: 08-22-2023 End: 08-22-2023 Patient encounter procedure ISADORA CORREA HOSPITAL TECHNICIAN-CATCHER HELPER [facility] Start: 08-09-2023 End: 08-09-2023 Emergency department patient visit DR OLLIE BROOKE MD [facility] Start: 08-08-2023 End: 08-12-2023 ambulatory ISADORA CORREA Facility:[facility] Start: 08-08-2023 End: 08-12-2023 Outreach Lab ISADORA CORREA HOSPITAL TECHNICIAN-CATCHER HELPER [facility] Start: 08-08-2023 End: 08-08-2023 ambulatory ISADORA CORREA Facility:[facility] Start: 06-13-2023 End: 06-13-2023 Emergency department patient visit DEMI HUSTON MD [facility] Start: 06-07-2023 End: 06-09-2023 Evaluation and management of inpatient MOY WATTS MD [facility] Start: 05-05-2023 End: 05-05-2023 Emergency department patient visit DEMI HUSTON MD [facility] Start: 05-03-2023 ambulatory JAD Coombs Facility:A Start: 04-03-2023 End: 04-03-2023 ambulatory ISADORA CORREA Facility:[facility] Start: 04-03-2023 End: 04-03-2023 Patient encounter procedure JONNY HOFF HOSPITAL TECHNICIAN-CATCHER HELPER [facility] Start: 03-22-2023 End: 03-22-2023 ambulatory ISADORA CORREA Facility:[facility] Start: 03-14-2023 ambulatory ISADORA CORREA Facility :[facility] Start: 02-22-2023 ambulatory ISADORA CORREA Facility :[facility] Start: 02-12-2023 End: 02-12-2023 Emergency department patient visit [facility] Work Phone: Start: 02-01-2023 End: 02-01-2023 Patient encounter procedure ISADORA CORREA HOSPITAL TECHNICIAN-CATCHER HELPER [facility] Start: 12-23-2022 End: 12-23-2022 Minor Procedure MOY WATTS MD [facility] Start: 11-11-2022 End: 11-11-2022 Patient encounter procedure MOY WATTS MD [facility] Start: 10-27-2022 End: 10-27-2022 Emergency department patient visit DR OLLIE BROOKE MD [facility] Start: 10-24-2022 End: 10-25-2022 Emergency department patient visit DEMI HUSTON MD [facility] Start: 10-23-2022 End: 10-23-2022 Emergency department patient visit [facility] Start: 07-15-2022 End: 07-15-2022 Emergency department patient visit JEREMIE MCCORMACK MD [facility] Start: 07-11-2022 End: 07-11-2022 Emergency department patient visit MALORIE PEGUERO MD [facility] Start: 07-05-2022 End: 07-05-2022 ambulatory [facility] Start: 04-12-2022 End: 04-12-2022 ambulatory [facility] Start: 03-11-2022 ambulatory Melissa Ayala Facility: [facility] Start: 01-12-2022 End: 01-12-2022 ambulatory [facility] Start: 08-24-2021 ambulatory [facility] Start: 08-17-2021 End: 08-18-2021 ambulatory [facility] Start: 08-02-2021 ambulatory [facility] Procedures Date Procedure Procedure Detail Performing Clinician Start: 03-25-2024 Excision HELEN BALDERAS HOSPITAL TECHNICIAN-STAR FESTIVAL Comment on above: excision of multilob ulated lipomatous mass right forearm Start: 01-31-2024 Echocardiography CHUN Briones CORINE HOSPITAL TECHNICIAN-STAR FESTIVAL Start: 02-12-2023 SARS-CoV-2 & FLU Ant igen (Rapid) Start: 02-12-2023 Viral antigen assay Start: 02-12-2023 Plain chest X-ray Start: 12-23-2022 Cardioversion JAD WATTS MD Start: 11-11-2022 Echocardiography JONNY HOFF HOSPITAL TECHNICIAN-STAR FESTIVAL Comment on above: 1. Left ventricle: T [...] Date Care Activity Detail Author Start: 10-23-2022 [facility] Patient Education [facility] Work Phone: Patient referral [facility] Work Phone: Immunizations Immunization Date Immunization Notes Care Provider Cesia mazariegos 04-12-2022 influenza virus vaccine, unspecified formulation MOY [...] Date Payer Category Payer Self-pay 2024 Medicaid [id number] 2024 Private Health Insurance 5e [id number] 2023 Medicaid [id number] 1971 Unknown [id number] 2.16.8 40.1.051738.3.579.2.1076 1971 Unknown [id number] 2.16. 840.1.714000.3.579.2.297 1971 Unknown [id number] 2.16.8 40.1.383050.3.579.2. 1971 Unknown [id number] 2.16.8 40.1.655418.3.579.2. 1971 Unknown [id number] 2.16.8 40.1.844826.3.579.2. 1971 Unknown [id number] 2.16.8 40.1.929658.3.579.2. 1971 Unknown [id number] 2.16.8 40.1.732821.3.579.2. 1971 Unknown [id number] 2.16.8 40.1.895310.3.579.2. 1971 Unknown [id number] 2.16.8 40.1.939750.3.579.2 1971 Unknown [id number] 2.16.8 40.1.318887.3.579.2 1971 Unknown [id number] 2.16.8 40.1.594370.3.579.2 1971 Unknown [id number] 2.16.8 40.1.006402.3.579.2 1971 Unknown [id number] 2.16.8 40.1.014450.3.579.2. 1971 Unknown [id number] 2.16.8 40.1.057536.3.579.2. 1971 Unknown [id number] 2.16.8 40.1.077302.3.579.2. 1971 Unknown [id number] 2.16.8 40.1.535014.3.579.2. 1971 Unknown [id number] 2.16.8 40.1.461785.3.579.2 1971 Unknown [id number] 2.16.8 40.1.571979.3.579.2. 1971 Unknown [id number] 2.16.8 40.1.858372.3.579.2.627 1971 Unknown [id number] 2.16.8 40.1.520809.3.579.2.627 1971 Unknown [id number] 2.16.8 40.1.181308.3.579.2.627 1971 Unknown [id number] 2.16.8 40.1.583804.3.579.2.627 1971 Unknown [id number] 2.16.8 40.1.095504.3.579.2.627 1971 Unknown [id number] 2.16.8 40.1.234954.3.579.2.7 1971 Unknown [id number] 2.16.8 40.1.278359.3.579.2.627 1971 Unknown [id number] 2.16.8 40.1.073236.3.579.2.7 1971 Unknown [id number] 2.16.8 40.1.104661.3.579.2.627 1971 Unknown [id number] 2.16.8 40.1.518390.3.579.2.651 1971 Unknown [id number] .16. 840.1.972446.3.579.2.627 1971 Unknown [id number] 2.16.8 40.1.418728.3.579.2.627 1971 Unknown [id number] 2.16.8 40.1.432732.3.579.2.627 Unknown [id number] Unknown [id number] 2.16.8 40.1.401002.3.579.2.443 Unknown [id number] 2.16.8 40.1.594768.3.579.2.462 Unknown [id number] 2.16.8 40.1.139577.3.579.2.462 Unknown [id number] 2.16.8 40.1.784638.3.579.2.462 Social History Date Type Detail Facility Start: 07-11-2022 End: 01-12-2024 Tobacco smoking status Ex-smoker (finding) [facility] Start: 1970 Sex Assigned At Male A [facility] Start: 10-23-2022 End: 02-12-2023 Tobacco smoking status NCIS Unknown if ever smoked [facility] Tobacco Nicotine Use: sn uff. Type: Oral (Snuff, Chew). [facility] Comment on above: using NicoDerm patch Stopped chewing snuf f October 2022 Tobacco smoking status [facility] Start: 06-07-2023 End: 08-08-2023 Tobacco smoking status Former smokeless tobacco user, quit more than 30 days ago [facility] Start: 07-11-2022 Sex Male (finding) [facility] Medical Equipment Procedure Code Equipment Code Equipment Origin al Text Equipment Identifier Dates See Instructions , 1 bottle of 100 Test once daily, # 1 EA, 11 Refill(s), Pharmacy: [facility], 177.8, cm, 11/28/23 13:54:00 EDT, Height, 151.4, kg, 11/28/23 13:54:00 EDT, Dosing Weight Start: 12-12-2023 See Instructions , qs 1 month supply Test once daily, # 1 EA, 11 Refill(s), Pharmacy: [facility], 177.8, cm, 11/28/23 13:54:00 EDT, Height, 151.4, kg, 11/28/23 13:54:00 EDT, Dosing Weight Start: 12-12-2023 See Instructions , 1 bottle of 100 Test once daily, # 1 EA, 11 Refill(s), Pharmacy: [facility], 177.8, cm, 11/28/23 13:54:00 EDT, Height, 151.4, kg, 11/28/23 13:54:00 EDT, Dosing Weight Start: 12-12-2023 See Instructions , qs 1 month supply Test once daily, # 1 EA, 11 Refill(s), Pharmacy: [facility], 177.8, cm, 11/28/23 13:54:00 EDT, Height, 151.4, kg, 11/28/23 13:54:00 EDT, Dosing Weight Start: 12-12-2023 See Instructions , 1 bottle of 100 Test once daily, # 1 EA, 11 Refill(s), Pharmacy: [facility], 177.8, cm, 11/28/23 13:54:00 EDT, Height, 151.4, kg, 11/28/23 13:54:00 EDT, Dosing Weight Start: 12-12-2023 See Instructions , qs 1 month supply Test once daily, # 1 EA, 11 Refill(s), Pharmacy: [facility], 177.8, cm, 11/28/23 13:54:00 EDT, Height, 151.4, kg, 11/28/23 13:54:00 EDT, Dosing Weight Start: 12-12-2023 See Instructions , 1 bottle of 100 Test once daily, # 1 EA, 11 Refill(s), Pharmacy: [facility], 177.8, cm, 11/28/23 13:54:00 EDT, Height, 151.4, kg, 11/28/23 13:54:00 EDT, Dosing Weight Start: 12-12-2023 See Instructions , qs 1 month supply Test once daily, # 1 EA, 11 Refill(s), Pharmacy: [facility], 177.8, cm, 11/28/23 13:54:00 EDT, Height, 151.4, kg, 11/28/23 13:54:00 EDT, Dosing Weight Start: 12-12-2023 See Instructions , 1 bottle of 100 Test once daily, # 1 EA, 11 Refill(s), Pharmacy: [facility], 177.8, cm, 11/28/23 13:54:00 EDT, Height, 151.4, kg, 11/28/23 13:54:00 EDT, Dosing Weight Start: 12-12-2023 See Instructions , qs 1 month supply Test once daily, # 1 EA, 11 Refill(s), Pharmacy: [facility], 177.8, cm, 11/28/23 13:54:00 EDT, Height, 151.4, kg, 11/28/23 13:54:00 EDT, Dosing Weight Start: 12-12-2023 See Instructions , 1 bottle of 100 Test once daily, # 1 ANNABELLE, 11 Refill(s), Pharmacy: [facility], 177.8, cm, 11/28/23 13:54:00 EDT, Height, 151.4, kg, 11/28/23 13:54:00 EDT, Dosing Weight Start: 12-12-2023 See Instructions , qs 1 month supply Test once daily, # 1 EA, 11 Refill(s), Pharmacy: [facility], 177.8, cm, 11/28/23 13:54:00 EDT, Height, 151.4, kg, 11/28/23 13:54:00 EDT, Dosing Weight Start: 12-12-2023 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 Cable al Fixator Application L Unknown 10/17/24 Unknown Unknown FDA Start: 10-17-2024 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 al Fixator Application L Unknown 10/17/24 Unknown Unknown FDA Start: 10-17-2024 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 al Fixator Application L Unknown 10/17/24 Unknown Unknown FDA Start: 10-17-2024 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 Cable al Fixator Application L Unknown 10/17/24 Unknown Unknown FDA Start: 10-17-2024 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 Cable al Fixator Application L Unknown 10/17/24 Unknown Unknown FDA Start: 10-17-2024 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 Cable al Fixator Application L Unknown 10/17/24 Unknown Unknown FDA Start: 10-17-2024 Functional Status Date Assessment Result Facility 10-04-2024 Functional Status Room located n ear nursing station, Door open, Bathroom light on, Non-Slip footwear, Room check performed [facility] 10-04-2024 Functional Status [facility] 10-04-2024 Functional Status [facility] 10-04-2024 Functional Status Breakfast Percent 80 [facility] 10-04-2024 Functional Status [facility] 10-03-2024 Functional Status Done [facility] 10-03-2024 Functional Status Sequential Com pression Device bilateral knee high removed/off [facility] 10-02-2024 Functional Status ID band on, Call device within reach, Bed in low position [facility] 02-01-2024 Functional Status Room check performed [facility] 02-01-2024 Functional Status [facility] 02-01-2024 Functional Status [facility] 02-01-2024 Functional Status Maintained [facility] 01-31-2024 Functional Status [facility] 01-31-2024 Functional Status 7pm-7am [facility] 01-31-2024 Functional Status Living Situati on Lives with family [facility] 01-31-2024 Functional Status Skin Care Prev entative Intervention(s) heel(s)s elevated, padded oxygen tubing, turn and position system [facility] 01-31-2024 Functional Status [facility] 01-31-2024 Functional Status Independent [facility] 01-30-2024 Functional Status Standard Safet y ID band on, Call device within reach, Bed in low position, Wheels locked, Upper/Half-Length side-rails up, personal items within reach, Bedside Cart Locked, Visitor at bedside [facility] 08-09-2023 Functional Status Awake, Resting [facility] 06-13-2023 Functional Status ID band on, Call device within reach [facility] 06-09-2023 Functional Status Room check performed [facility] 06-09-2023 Functional Status [facility] 06-09-2023 Functional Status [facility] 06-09-2023 Functional Status [facility] 06-08-2023 Functional Status Home independe ntly, Lives with significant other [facility] 06-08-2023 Functional Status Skin Care Prev entative Intervention(s) padded oxygen tubing [facility] 06-08-2023 Functional Status bilateral knee high removed/off [facility] 06-07-2023 Functional Status Sensory Deficits None A [facility] 05-05-2023 Functional Status Assistive Device None [facility] 05-05-2023 Functional Status Standard Safet y ID band on, Call device within reach, Bed in low position, Wheels locked, Visitor at bedside [facility] 12-23-2022 Functional Status Ambulating in room, Awake [facility] 12-23-2022 Functional Status Maintained [facility] 10-27-2022 Functional Status Room check performed [facility] 10-27-2022 Functional Status [facility] 10-25-2022 Functional Status [facility] Functional Status Standard Safet y ID band on, Call device within reach, Bed in low position, Wheels locked, Upper/Half-Length side-rails up, personal items within reach, Visitor at bedside [facility] 07-15-2022 Functional Status Room check performed [facility] 07-11-2022 Functional Status Up ad traci [facility] Mental Status Date Assessment Result Facility 10-04-2024 Mental Status Oriented x 4 [facility] 10-04-2024 Mental Status [facility] 10-04-2024 Mental Status [facility] 10-02-2024 Mental Status Orientation Oriented x 4 [facility] 02-01-2024 Mental Status Orientation Oriented x 4 [facility] 02-01-2024 Mental Status [facility] 01-31-2024 Mental Status [facility] 01-31-2024 Mental Status [facility] 01-30-2024 Mental Status Orientation Oriented x 4 [facility] 08-09-2023 Mental Status Oriented x 4 [facility] 06-13-2023 Mental Status Orientation Oriented x 4 [facility] 06-09-2023 Mental Status Oriented x 4 [facility] 06-09-2023 Mental Status [facility] 06-09-2023 Mental Status [facility] 06-08-2023 Mental Status [facility] 05-05-2023 Mental Status Orientation Oriented x 4 [facility] 05-05-2023 Mental Status [facility] 12-23-2022 Mental Status Oriented x 4 [facility] 10-27-2022 Mental Status Orientation Oriented x 4 [facility] 10-27-2022 Mental Status [facility] 10-25-2022 Mental Status Orientation Oriented x 4 [facility] 10-24-2022 Mental Status [facility] 10-23-2022 Cognitive function Voice/Name Taye Guo [facility] Work Phone: 07-15-2022 Mental Status Oriented x 4 [facility] 07-11-2022 Mental Status Oriented x 4 [facility] Clinical Notes 02-07-2022 to 10-23-2024 Note [...] your health care provider approves. Standard walker 1.pick up worker your walker. Do not slide your standard [...] 05/15/2006 Document Revised: 04/10/2019 Document Reviewed: 04/10/2019 [employer] Patient Education 2020 [employer] 10/23/2024 17:07:24 How to Care for an [...] with a waterproof covering. General instructions Take gwcv-dqo-dhdbnik and prescription medicines only as told by [...] 01/25/2012 Document Revised: 07/12/2019 Document Reviewed: 07/15/2019 [employer] Patient Education 2020 [employer]. Follow Up Care 10/16/2024 16:12:44 With:[facility], [place], Address:Unknown When:1-2 days With:ISADORA CORREA Address: [address] [place] [address]- [phone] Business (1) When:1-2 days With:NANI QUINTANA DO, Orthopedic Address: [address] [employer], [place] [address]- [phone] When:3-7 days Comments:Please call office SARA to confirm/verify follow up appointment. [facility] 10-23-2024 Note Discharge Instructions Thank you for allowing [facility] to assist you with your healthcare needs. The following is important discharge information regarding your hospital visit. Your Care Team ISADORA CORREA Your Diagnosis Closed displaced bimalleolar fracture of right ankle Post-op pain Shortness of breath What to do next Scheduled Follow-Up Appointments Appointment Type When With Where Contact Information StatusCV Hospital Follow Up 11/08/2024 02:30 PM [facility] OV 11/12/2024 03:30 PM EDT ISADORA CORREA [facility] Confirmed Follow Up Appointments Follow Up with [facility], [facility], When:Within 1-2 days Follow Up with ISADORA CORREA When:Within 1-2 days Where:[address] [place] [address]- [phone] Business (1) Follow Up with NANI QUINTANA DO Orthopedic When:Within 3-7 days Where:[address] [facility], [place] [address]- [phone] Additional Information: Please call office SARA to [...] Post-op pain Duration: 7 Days Pickup at [facility]/pharmacy #[id number] Unchanged albuterol (albuterol 2.5 mg/ 3 mL [...] by mouth Daily at bedtime Pharmacy Information [facility]/pharmacy #[id number]: [address], [place] [phone] Please take this list to your next [...] may report side effects to FDA at [phone]. What other drugs will affect acetaminophen and [...] affect acetaminophen and oxycodone, including prescription and bvay-okg-nhgutuz medicines, vitamins, and herbal products. Not all [...] to ensure that the information provided by [employer]. ('Mult[employer]') is accurate, up-to-date, and complete, but no guarantee is made to that effect. Drug information contained herein may be time sensitive. Seeo information has been compiled for use by healthcare practitioners and consumers in the [place] and therefore Seeo does not warrant that uses outside of the [place] are appropriate, unless specifically indicated otherwise. Seeo's drug information does not endorse drugs, diagnose patients or recommend therapy. [employer] drug information is an informational resource designed [...] effective or appropriate for any given patient. Seeo does not assume any responsibility for any aspect of healthcare administered with the aid of information Seeo provides. The information contained herein is not intended to cover all possible uses, directions, precautions, warnings, drug interactions, allergic reactions, or adverse effects. If you have questions about the drugs you are taking, check with your doctor, nurse or pharmacist. Copyright 5077-0335 TDX. Version: 22.01. Revision Date: 12/29/2022. Education Materials How to [...] health care provider approves. Standard walker 1. pick up worker your walker. Do not slide your standard [...] 05/15/2006 Document Revised: 04/10/2019 Document Reviewed: 04/10/2019 Elsevier Patient Education 2020 Elsevier Inc. How to Care for an External [...] with a waterproof covering. General instructions Take pbxc-els-axgktvt and prescription medicines only as told by [...] 01/25/2012 Document Revised: 07/12/2019 Document Reviewed: 07/15/2019 Elsevier Patient Education 2019 [employer] Additional Information VACCINATE! IT SAVES LIVES! Members of the community who have not yet received the COVID-19 vaccine and would like to receive it can visit one of [facility] vaccine clinics. There are many vaccine clinic locations within the [facility]. For locations and available times, please visit [email or web address].coronavirus.o vto.gov/. It is important to note that some COVID mobile vaccine clinics are held outdoors and may be canceled in rainy or stormy conditions. To learn more about pediatric vaccinations (ages 5-11), we invite you to visit the [employer] webpage. [email or web address]://[email or web address] birds.org/p ages/[email or web address]-Uunrr-Hmryaqdrosw-Freq rhusdv-Njecx-Atxabbmfk.html To learn more about the COVID-19 vaccine, we invite you to visit the CDC website for a list of frequently asked questions.https://www.cdc.gov/co ronavirus/2019-ncov/vaccines/faq .html [facility] Patient Portal Access Instructions: Stay connected with your healthcare team and access your personal medical information anytime with the [facility] Patient Portal. Please follow the directions below to create your [facility] account: 1.Access the email account you provided upon registration to the hospital/physician office.2.Look for an invitation email from [facility].3.Open the email and access the invitation link: Accept Invitation to [facility].4.Fill in the required orr to create your account. To access your account, visit [email or web address]. Click the blue button labeled Access Patient [...] you will allow to register on the [facility] Patient Portal for access to your information. You can also access the [facility] Patient Portal on the [facility] frida. Simply click on Patient Portal and then log into your account. If you would like to receive a full copy of your medical records, please contact the [facility] Medical Records Department by calling [phone], Monday through Monday between 8 a.m. and [...] Call your local pharmacy or go to http://[email or web address]/[email or web address] to find one close to you.3.Make use of household items: Use cat litter or old coffee grounds to dispose medications if other options are not available. Mix your drugs with these household products, seal them in an airtight container and throw it into the garbage. Call [facility]: [phone] to be sure your drugs can be [...] aware that I should contact my doctor. Patient/Emergency Medicine Signature: Date/Time: Relationship to Patient: Witness Name/Signature: Date/Time: [facility] 10-23-2024 Note Discharge Instructions Thank you for allowing [facility] to assist you with your healthcare needs. The following is important discharge information regarding your hospital visit. Your Care Team ISADORA CORREA HOSPITAL TECHNICIAN-CATCHER HELPER Your Diagnosis Closed displaced bimalleolar fracture of right ankle Post-op pain Shortness of breath What to do next Scheduled Follow-Up Appointments Appointment Type When With Where Contact Information StatusCV OV Hospital Follow Up 11/08/2024 02:30 PM EDT EDY WEBER [facility] CVC Confirmed PC OV 11/12/2024 03:30 PM EDT ISADORA CORREA HOSPITAL TECHNICIAN-CATCHER HELPER [facility] Confirmed Follow Up Appointments Follow Up with [facility], skilled, When:Within 1-2 days Follow Up with ISADORA CORREA When:Within 1-2 days Where:[address] [facility] [place] [address] [phone] Business (1) Follow Up with NANI QUINTANA DO, Orthopedic When:Within 3-7 days Where:[address] [facility], [place] [address]- [phone] Additional Information: Please call office SARA to [...] Post-op pain Duration: 7 Days Pickup at [facility]/pharmacy #[id number] Unchanged albuterol (albuterol 2.5 mg/ 3 mL [...] by mouth Daily at bedtime Pharmacy Information [facility]/pharmacy #[id number]: [address], [place] [phone] Please take this list to your next [...] to receive it can visit one of [facility] vaccine clinics. There are many vaccine clinic locations within the [facility]. For locations and available times, please visit [email or web address] [email or web address] It is important to note that some COVID mobile vaccine clinics are held outdoors and may be canceled in rainy or stormy conditions. To learn more about pediatric vaccinations (ages 5-11), we invite you to visit the [facility] webpage. [email or web address] To learn more about the COVID-19 vaccine, we invite you to visit the CDC website for a list of frequently asked questions.https://www.cdc.gov/co ronavirus/2019-ncov/vaccines/faq .html [facility] Patient Portal Access Instructions: Stay connected with your healthcare team and access your personal medical information anytime with the [facility] Patient Portal. Please follow the directions below to create your [facility] account: 1.Access the email account you provided upon registration to the hospital/physician office.2.Look for an invitation email from [facility].3.Open the email and access the invitation link: Accept Invitation to [facility].4.Fill in the required orr to create your account. To access your account, visit [email or web address]. Click the blue button labeled Access Patient [...] you will allow to register on the [facility] Patient Portal for access to your information. You can also access the [facility] Patient Portal on the [employer] frida. Simply click on Patient Portal and then log into your account. If you would like to receive a full copy of your medical records, please contact the [facility] Medical Records Department by calling [phone], Monday through Monday between 8 a.m. and [...] Call your local pharmacy or go to [email or web address] to find one close to you.3.Make use of household items: Use cat litter or old coffee grounds to dispose medications if other options are not available. Mix your drugs with these household products, seal them in an airtight container and throw it into the garbage. Call [facility]: [phone] to be sure your drugs can be [...] aware that I should contact my doctor. Patient/Emergency Medicine Signature: Date/Time: Relationship to Patient: Witness Name/Signature: [...] obturator, femoral, LCN, DPN, SPN, sural, saphenous, M/STITCHER SET UP OPERATOR AUTOMATIC - Calf soft and non-tender Left Lower Extremity - No pain to left lower extremity. Walking boot in place when patient is ambulating - Motor: Hip flexion/extension, quadriceps, hamstrings, gastruc/soleus, EHL/FHL intact. - DP and PT pulse 2+. Foot warm and perfused. BCR - Sensation grossly intact L2-S2: obturator, femoral, LCN, DPN, SPN, sural, saphenous, M/STITCHER SET UP OPERATOR AUTOMATIC - Calf soft and non-tender Weight Dosing [...] obturator, femoral, LCN, DPN, SPN, sural, saphenous, M/STITCHER SET UP OPERATOR AUTOMATIC - Calf soft and non-tender Left Lower Extremity - No pain to left lower extremity. Walking boot in place when patient is ambulating - Motor: Hip flexion/extension, quadriceps, hamstrings, gastruc/soleus, EHL/FHL intact. - DP and PT pulse 2+. Foot warm and perfused. BCR - Sensation grossly intact L2-S2: obturator, femoral, LCN, DPN, SPN, sural, saphenous, M/STITCHER SET UP OPERATOR AUTOMATIC - Calf soft and non-tender Weight Dosing [...] obturator, femoral, LCN, DPN, SPN, sural, saphenous, M/STITCHER SET UP OPERATOR AUTOMATIC - Calf soft and non-tender Left Lower Extremity - No pain to left lower extremity. Walking boot in place when patient is ambulating - Motor: Hip flexion/extension, quadriceps, hamstrings, gastruc/soleus, EHL/FHL intact. - DP and PT pulse 2+. Foot warm and perfused. BCR - Sensation grossly intact L2-S2: obturator, femoral, LCN, DPN, SPN, sural, saphenous, M/STITCHER SET UP OPERATOR AUTOMATIC - Calf soft and non-tender Weight Dosing [...] obturator, femoral, LCN, DPN, SPN, sural, saphenous, M/STITCHER SET UP OPERATOR AUTOMATIC - Calf soft and non-tender Left Lower Extremity - No pain to left lower extremity. Walking boot in place when patient is ambulating - Motor: Hip flexion/extension, quadriceps, hamstrings, gastruc/soleus, EHL/FHL intact. - DP and PT pulse 2+. Foot warm and perfused. BCR - Sensation grossly intact L2-S2: obturator, femoral, LCN, DPN, SPN, sural, saphenous, M/STITCHER SET UP OPERATOR AUTOMATIC - Calf soft and non-tender Weight Dosing [...] On: 10/18/2024 14:50 EDT by Sanjay Lucas Pastharman Gan Type of Pastoral Visit : Initial visit [...] Tech Time KAILEY WAHL DO; Auth (Verified) [id number] ORIGINAL EXAMINATION: FLUORO MD - > 1 HR TECHNIQUE: Total fluoro time is 43.2 seconds. Total exposure is 2.0531 mGy. COMPARISON: CT ankle 10/17/2024, x-ray ankle 10/16/2024. HISTORY: ORDERING SYSTEM PROVIDED HISTORY: Reason for Exam: RIGHT ANKLE FX FINDINGS: Intraoperative fluoroscopic images from external surgical fixation of a distal fibular fracture. IMPRESSION: Intraoperative fluoroscopic images. Please refer to the automatic casting machine operator's report for further information. I have personally reviewed the images of this examination and agree with the resident's findings and interpretation. Interpreted by: Corey Wahl Preliminary Report By: Nadya Hudson Electronically signed By Corey Wahl Dictated Date: 10/17/2024 1:42:02 PM Prelim Date: 10/17/2024 2:15:08 PM Sign Date: 10/17/2024 2:15:08 PM Ordering Provider: NANI FELICE [facility] [id number] Note Date of Service 10/17/2024 Chief Complaint [...] on 10/17/2024 12:52 PM [facility] [id number] Anesthesiology Consult note Patient: SOCORRO KELLEY Age: [...] on 10/17/2024 11:13 AM [facility] [id number] Note* Exam Date Time Procedure Performing Provider Status 10/17/24 10:[address] Ankle w/o Contrast Right KATHY REVELES MD; Auth (Verified) [id number] ORIGINAL EXAMINATION: CT OF THE RIGHT ANKLE [...] spanning external fixator, multiplanar 10/17. transfer from [facility] for right ankle fracture with dislocation. Surgical [...] Sign Date: 10/17/2024 1:17:29 PM Ordering Provider: [facility]05-22-2025 History and physical note Date of Service 10/16/2024 Chief Complaint Pt here from [facility] via squad after a mechanical fall causing a fracture to his right ankle. They splinted it in their ED and sent to [facility] for surgical consult. History of Present Illness Patient is a 54-year-old male who presents to the [facility] emergency department as a transfer from [facility] for his right ankle fracture. Patient reports [...] -Awaiting medical optimization -Plan discussed with Dr. Korpi Orders: acetaminophen(Tylenol), 650 mg= 2 tab(s), Oral, [...] Blood, q24h, for 5 day(s), Preferred Lab: [facility], Stop date 10/20/24 22:00:00 EDT Bedrest, 10/16/24 [...] Blood, q24h, for 5 day(s), Preferred Lab: [facility], Stop date 10/20/24 22:00:00 EDT Complete Metabolic Panel(CMP), 10/16/24 21:21:00 EDT, URGENT (collect within 2 hrs), Blood, Once, Nurse Collect, Preferred Lab: [facility], Stop date 10/16/24 21:37:00 EDT Consult to Physician, 10/16/24 21:21:00 EDT, HOSPITALISTLARRY (For Consultation Assignment OnlyNO other Orders), Routine, medical clearance, follow medically Diet Order, 10/16/24 21:21:00 EDT, Start Meal: Next meal, Regular, Constant Order, : N/A, : N/A Electrocardiogram(EKG), 10/16/24 21:21:00 EDT, Complete by Nursing Incentive Spirometer, 10/16/24 21:21:00 EDT, [id number]-WS Intake and Output, 10/16/24 21:21:00 EDT, q8h (2p, 10p, 6a) IV Catheter Insertion/Care(Peripheral IV Insertion/Care), 10/16/24 21:21:00 EDT, IV Care: Once, 18 gauge angiocath, if possible Pulse Oximeter - Intermittent, 10/16/24 21:21:00 EDT, AsDirected, PRN order, On admission and as indicated Type and Screen, 10/16/24 21:21:00 EDT, URGENT (collect within 2 hrs), Blood, Once, Nurse Collect, Preferred Lab: [facility], Stop date 10/16/24 21:21:00 EDT Vital Signs, [...] on 10/16/2024 09:43 PM [facility] [id number] Anesthesiology Consult note Patient: SOCORRO KELLEY Age: [...] list: Medical Asthma exacerbation / SNOMED CT 2312115700 / Confirmed COPD exacerbation / SNOMED CT 1927445534 / Confirmed Atopic dermatitis / SNOMED CT 15781089 / Confirmed Atypical chest pain / SNOMED CT 988833906 / Confirmed Morbid obesity with BMI of 40.0-44.9, adult / SNOMED CT 4328396261 / Confirmed Bronchitis / SNOMED CT 11858252 / Confirmed Cardiomyopathy / SNOMED CT 215769909 / Confirmed CHF with cardiomyopathy / SNOMED CT 42396775 / Confirmed Cough / SNOMED CT 85866511 / Confirmed Dental abscess / SNOMED CT 420439782 / Confirmed Depression / SNOMED CT 14992298 / Confirmed Dyspnea / SNOMED CT 117124775 / Confirmed Generalized anxiety disorder / SNOMED CT 12343110 / Confirmed Hypertension associated with type 2 diabetes mellitus / SNOMED CT 4636271650 / Confirmed Insomnia / SNOMED CT 658731769 / Confirmed LVH (left ventricular hypertrophy) / SNOMED CT 90207036 / Confirmed Moderate asthma / SNOMED CT 0127605071 / Confirmed Near syncope / SNOMED CT 2451403868 / Confirmed Chewing tobacco nicotine dependence / SNOMED CT 88363984 / Confirmed KOFFI (obstructive sleep apnea) / SNOMED CT 141580543 / Confirmed Right knee pain / SNOMED CT 3142285405 / Confirmed Paroxysmal atrial fibrillation / SNOMED CT 413642568 / Confirmed Screening for ischemic heart disease / SNOMED CT 773974034 / Confirmed Screening for colon cancer / SNOMED CT 849890003 / Confirmed Statin intolerance / SNOMED CT 2690576630 / Confirmed Tachyarrhythmia / SNOMED CT 29678576 / Confirmed Type 2 diabetes mellitus with hemoglobin A1c goal of less than 7.0% / SNOMED CT 951544724 / Confirmed Type 2 diabetes mellitus with hyperlipidemia / SNOMED CT 019553251 / Confirmed, Active Problems (32) Asthma exacerbation [...] Histories Past Medical History: Resolved Morbid obesity (718319243): Resolved. Diabetes mellitus (454345352): Resolved. Hypertension (4988029152): Resolved. BMI 45.0-49.9, adult (7912910249): Resolved. Anxiety (90610860): Resolved. Prediabetes (9452810992): Resolved. Obstructive sleep apnea (628177278): Resolved. Right flank pain (781612687): Resolved. Hyperlipidemia (06414140): Resolved. Mass of arm (533330666): Resolved. Family History: Cancer Father Heart disease Mother Grandparent Stroke Father Procedure history: Excision ([id number]) on 03/25/2024 at 53 Years. 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 Cardioversion (447975677) on 12/23/2022 at 52 Years. Echocardiogram (5651065119) on 11/11/2022 at 52 Years. Comments: 03/20/2023 17:58 EDT - Ella Isaac MA (ABR-OE) 1. Left ventricle: The cavity [...] atrial pressure is 15 mm Hg Elbow (7951477490). Comments: 07/11/2022 8:26 SHAHEEN Nunez bursitis - right Social History: Social & Psychosocial [...] Temp Oral36.7 DegC (OCTOBER 17:12) Heart Rate Xscuxwyae69 bpm (OCTOBER 17 00:00) UJG081 mmHg (OCTOBER 17:12) DBP82 mmHg (OCTOBER 17:12) BMI44.92 (MAY 22 01:29) Measurements from flowsheet : Measurements 10/17/2024 1:29 EDT Height 177.8 cm Height in inches 70 inch(es) Admission Weight 142 kg Weight Lbs 312.4 lb [place] Body Weight 73.00 kg Type of Scale [...] PRN medication effectiveness Partial Nail Bed Color [place] Capillary Refill < 2 seconds Dorsalis Pedis Pulse, Left 2+ Normal Radial Pulse, Left 2+ Normal Radial Pulse, Right 2+ Normal Respirations Unlabored Respiratory Pattern Regular All Lobes Breath Sounds Clear Abdomen Description Non-distended, Rounded Abdomen Palpation Non-Tender Passing Flatus Yes Bowel Sounds All Quadrants Present Skin Description [place], Dry Skin Temperature Warm Skin Integrity Pressure points intact Skin Turgor Elastic All Extremity Description [place], Normal for ethnicity Temperature All Extremities Warm Mucous Membrane Color [place] Mucous Membrane Description Moist Ankle Right Incision, Wound Dressing/Activity: Assessed Incision, Wound Dressing: Elastic wrap bandage Wound Associated Pain: With activity, mobilization Buttock Inferior, Inner Skin Abnormality Type: Non-pressure ulcer Skin Abnormality Color: [place], Red Incision, Wound Surrounding Tissue: Normal skin [...] EDT Designated Person #1 We May Share [facility] MARILYN OSPINA [phone] Designated Person #1 Relationship Sibling Designated Person #2 We May Share [facility] Designated Person #2 We May Share [facility] Privacy Restrictions Requested None Height 177.8 cm Height in inches 70 inch(es) Admission Weight 142 kg Weight Lbs 312.4 lb [place] Body Weight 73.00 kg Type of Scale [...] evident Teaching Method Explanation Preferred Spoken Language Gibraltarian Preferred Written Language Gibraltarian Disease Process General Education Signs/Symptoms to report, [...] 10/16/2024 16:28 EDT Status N/A [place] Screen ED/[employer] patient History of Fall in [...] Needs reinforcement Chief Complaint Pt here from [facility] via squad after a mechanical fall causing a fractureto his right ankle. They splinted it in their ED and sent to [facility] for surgical consult. Place Where Injury/Illness Occurred Other: [facility] Anticoagulants Taken In Past 6 Wks. No [...] Non-distended, Symmetric Abdomen Palpation Non-Tender Skin Description [place], Normal for ethnicity, Dry Skin Temperature Warm Mucous Membrane Color [place] Mucous Membrane Description Moist Neurological Symptoms Patient denies Level of Consciousness Alert Eye Opening Response Luis Felipe Spontaneously Best Motor Response Luis Felipe Obeys simple commands Best Verbal Response [place] Oriented Luis Felipe Coma Score 15 CLARA Yes Left Upper [...] No Weight Loss No Preferred Spoken Language Gibraltarian Preferred Written Language Gibraltarian Tracking Group ED Tracking Group Tracking Acuity 3 ED Diabetic Patient No Mode of Transfer Ground ambulance Ambulance Service [facility] Positioning Repositions self Standard Safety ID [...] ED Triage Adults . Assessment and Plan [employer] [employer] Anesthesiologists (ASA) physical status classification: [...] diabetes mellitus with hyperlipidemia Historical Anxiety Diabetes mellit us Hyperlipidemia Hypertension Mass of arm Obstructive sleep apnea Prediabetes Right flank pain . Digitally Signed by MELISSA MARIN MD on 10/17/2024 06:21 AM Digitally Signed by DELORES BRAVOFREIGHT BRAKEMAN on 10/17/2024 07:17 AM [facility] [id number] Note Date of Service October 16, 2024 [...] on 10/16/2024 10:38 PM [facility] [id number] Note* Exam Date Time Procedure Performing Provider Status 10/16/24 10:24 PM Electrocardiogram - EKG - CV SA SULY PAULINO MD; Auth (Verified) ECG Final Report SINUS RHYTHM LEFT ANTERIOR FASCICULAR BLOCK LOW VOLTAGE, PRECORDIAL LEADS Electronic Signature: ALIZA PAULINO MD 10/17/2024 18:58:09 [facility] [id number] Note* Exam Date Time Procedure Performing Provider Status 10/16/24 10:07 PM XR Ankle Minimum 3 Views Left TRACE ROUSE MD; Auth (Verified) [id number] ORIGINAL EXAMINATION: THREE XRAY VIEWS OF THE [...] Sign Date: 10/16/2024 10:39:42 PM [facility] [id number] History and physical note Date of Service 10/16/2024 Chief Complaint Pt here from [facility] via squad after a mechanical fall causing a fracture to his right ankle. They splinted it in their ED and sent to [facility] for surgical consult. History of Present Illness Patient is a 54-year-old male who presents to the [facility] emergency department as a transfer from [facility] for his right ankle fracture. Patient reports [...] mL, Oral, qDay, PRN Basic Metabolic Panel(BMP), 10/16/24:21:00 EDT, Timed Study (collect at specified time), Blood, q24h, for 5 day(s), Preferred Lab: [facility], Stop date 10/20/24 22:00:00 EDT Bedrest, 10/16/24:21:00 EDT, Strict, continuous, Constant order Blood Glucose Call Parameter, 10/16/24:21:00 EDT, If patient is NPO for x-ray or surgery and hypoglycemic, call physician for further orders, 10/16/24:21:00 EDT Blood Glucose Call Parameter, 10/16/24::00 EDT, call provider if patient's blood glucose is <70mg/dL, 10/16/24:21:00 EDT Blood Glucose Monitoring Bedside PRN, 10/16/24:21:00 EDT, PRN Order, For signs/symptoms of hypoglycemia Communication Order (continuous), 10/16/24:21:00 EDT, Stat EKG will be obtained in the setting of new, ongoing or worsening chest discomfort/acute coronary syndrome symptoms in all nursing units and/or rhythm change in all monitored units., 10/16/24 21:21:00 EDT Complete Blood Count(CBC), 10/16/24 21:21:00 EDT, Timed Study (collect at specified time), Blood, q24h, for 5 day(s), Preferred Lab: [facility], Stop date 10/20/24 22:00:00 EDT Complete Metabolic Panel(CMP), 10/16/24:21:00 EDT, URGENT (collect within 2 hrs), Blood, Once, Nurse Collect, Preferred Lab: [facility], Stop date 10/16/24 21:37:00 EDT Consult to Physician, 10/16/24 21:21:00 EDT, HOSPITALISTLARRY (For Consultation Assignment OnlyNO other Orders), Routine, medical clearance, follow medically Diet Order, 10/16/24 21:21:00 EDT, Start Meal: Next meal, Regular, Constant Order, : N/A, : N/A Electrocardiogram(EKG), 10/16/24 21:21:00 EDT, Complete by Nursing Incentive Spirometer, 10/16/24 21:21:00 EDT, q9yNL-UO Intake and Output, 10/16/24 21:21:00 EDT, q8h (2p, 10p, 6a) IV Catheter Insertion/Care(Peripheral IV Insertion/Care), 10/16/24 21:21:00 EDT, IV Care: Once, 18 gauge angiocath, if possible Pulse Oximeter - Intermittent, 10/16/24 21:21:00 EDT, AsDirected, PRN order, On admission and as indicated Type and Screen, 10/16/24 21:21:00 EDT, URGENT (collect within 2 hrs), Blood, Once, Nurse Collect, Preferred Lab: [facility], Stop date 10/16/24 21:21:00 EDT Vital Signs, [...] on 10/16/2024 09:43 PM [facility] [id number] Note* Exam Date Time Procedure Performing Provider Status 10/16/24 8:42 PM XR Ankle Minimum 3 Views Right TRACE ROUSE MD; Auth (Verified) [id number] ORIGINAL EXAMINATION: THREE XRAY VIEWS OF THE [...] Ordering Provider: RIC ARELLANO [facility] [id number] Note* Exam Date Time Procedure Performing Provider Status 10/16/24 7:09 PM XR Ankle Minimum 3 Views Right TRACE ROUSE MD; Auth (Verified) [id number] ORIGINAL EXAMINATION: THREE XRAY VIEWS OF THE [...] Sign Date: 10/16/2024 7:53:07 PM Ordering Provider: [facility]05-21-2025 Note* Exam Date Time Procedure Performing Provider Status 10/16/24 5:43 PM XR Ankle Minimum 3 Views Right TRACE ROUSE MD; Auth (Verified) [id number] ORIGINAL EXAMINATION: THREE XRAY VIEWS OF THE [...] 10/16/2024 6:28:12 PM Ordering Provider: [facility]05-21-2025 Evaluation + Plan noteExtracted from: Title:Ortho [...] Blood, q24h, for 5 day(s), Preferred Lab: [facility], Stop date 10/20/24 22:00:00 EDT Bedrest, 10/16/24 21:21:00 EDT, Strict, continuous, Constant order Blood Glucose Call Parameter, 10/16/24 21:21:00 EDT, If patient is NPO for x-ray or surgery and hypoglycemic, call physician for further orders, 10/16/24 21:21:00 EDT Blood Glucose Call Parameter, 10/16/2421: EDT, call provider if patient's blood glucose is <70mg/dL, 10/16/24 21:21:00 EDT Blood Glucose Monitoring Bedside PRN, 10/16/24:21:00 EDT, PRN Order, For signs/symptoms of hypoglycemia Communication Order (continuous), 10/16/24:21:00 EDT, Stat EKG will be obtained in the setting of new, ongoing or worsening chest discomfort/acute coronary syndrome symptoms in all nursing units and/or rhythm change in all monitored units., 10/16/24 21:21:00 EDT Complete Blood Count(CBC), 10/16/24:21:00 EDT, Timed Study (collect at specified time), Blood, q24h, for 5 day(s), [facility], Stop date 10/20/24 22:00:00 EDT Complete Metabolic Panel(CMP), 10/16/24 21:21:00 EDT, URGENT (collect within 2 hrs), Blood, Once, Nurse Collect, Preferred Lab: [facility], Stop date 10/16/24 21:37:00 EDT Consult to Physician, 10/16/24 21:21:00 EDT, HOSPITALISTLARRY (For Consultation Assignment Only NO other Orders), Routine, medical clearance, follow medically Diet Order, 10/16/24 21:21:00 EDT, Start Meal: Next meal, Regular, Constant Order, : N/A, : N/A Electrocardiogram(EKG), 10/16/24 21:21:00 EDT, Complete by Nursing Incentive Spirometer, 10/16/24 21:21:00 EDT, x6aYV-TY Intake and Output, 10/16/24 21:21:00 EDT, q8h (2p, 10p, 6a) IV Catheter Insertion/Care(Peripheral IV Insertion/Care), 10/16/24 21:21:00 EDT, IV Care: Once, 18 gauge angiocath, if possible Pulse Oximeter - Intermittent, 10/16/24 21:21:00 EDT, AsDirected, PRN order, On admission and as indicated Type and Screen, 10/16/24 21:21:00 EDT, URGENT (collect within 2 hrs), Blood, Once, Nurse Collect, Preferred Lab: [facility], Stop date 10/16/24 21:21:00 EDT Vital Signs, [...] Appointment Date:11/08/2024 02:30:00 PM Scheduled Provider:EDY WEBER Location:[facility] Appointment Type:[facility] Hospital Follow Up Appointment Date:11/12/2024 03:30:00 PM Scheduled Provider:ISADORA CORREA APRN-SHAWN Location[facility] Appointment Type: OV Future Scheduled Tests Laboratory* Basic Metabolic [...] Slowly return to your usual activities. Take qzak-oct-ipbigjk and prescription medicines only as told by [...] 02/07/2002 Document Revised: 10/15/2018 Document Reviewed: 10/15/2018 [employer] Patient Education 2020 [facility] [employer]. 10/04/2024 21:03:30 Pursed Lip Breathing Pursed Lip [...] exercise. Follow these instructions at home: Take rsdm-btk-yemygbe and prescription medicines only as told by [...] 02/21/2009 Document Revised: 04/27/2018 Document Reviewed: 04/06/2017 [employer] Patient Education 2020 [facility] [employer]. 10/04/2024 21:03:27 Cough, Adult Cough, Adult Coughing [...] Follow these instructions at home: Medicines Take tqlj-ilv-ekgmmyv and prescription medicines only as told by [...] of a condition that needs treatment. Take bzug-zvi-ievgfof and prescription medicines only as told by [...] 11/11/2011 Document Revised: 06/03/2019 Document Reviewed: 06/03/2019 [employer] Patient Education 2019 [facility] [employer]. Follow Up Care 10/02/2024 02:08:49 With:readmission score is 13 Address:Unknown When: Unknown With:ISADORA CORREA Address: [address] [place] [address] [phone] Business (1) When:1-2 days [facility] 05-09-2025 Note Discharge Instructions Thank you for allowing [facility] to assist you with your healthcare needs. The following is importantdischarge information regarding your hospital visit. Your Care Team ISADORA CORREA Your Diagnosis Shortness of breath What to do next Scheduled Follow-Up Appointments Appointment Type When With Where Contact Information StatusPC OV 10/23/2024 04:00 PM EDT ISADORA [facility]REA [facility] Confirmed CV OV Hospital Follow Up 11/08/2024 02:30 PM EDT [facility] Confirmed Follow Up Appointments Follow Up with readmission score is 13 Follow Up with ISADORA CORREA When:Within 1-2 days Where:[address] [place] [phone] Business (1) The Following Activity and Diet [...] within 14 days after discharge, please call [facility] at [phone]. Post Acute Orders No qualifying data available. [...] a day Take with food Pickup at [facility]/pharmacy #[id number] Unchanged acetaminophen (Tylenol) by mouth As needed [...] Two (2) times a day Pickup at [facility]/pharmacy #[id number] Unchanged dulaglutide (Trulicity Pen 1.5 mg/ 0.5 [...] by mouth Daily at bedtime Pickup at [facility]/pharmacy #[id number] Unchanged spironolactone (spironolactone 25 mg oral tablet) 1 tab(s) by mouth Once a day Duration: 90 Days Unchanged tiZANidine (tiZANidine 2 mg oral tablet) 1 tab(s) by mouth Every 8 hours as needed for as needed for muscle spasm Duration: 7 Days Unchanged traZODone (traZODone 100 mg oral tablet) 1 tab(s) by mouth Daily at bedtime Pharmacy Information [facility]/pharmacy #[id number]: [address], [place] [phone] Please take this list to your next [...] may report side effects to FDA at 3-248-GEU-1778. What other drugs will affect hydroxyzine? Taking [...] may interact with hydroxyzine, including prescription and pjuy-jbu-yargsti medicines, vitamins, and herbal products. Not all [...] to ensure that the information provided by TDX. ('Multum') is accurate, up-to-date, and complete, but no guarantee is made to that effect. Drug information contained herein may be time sensitive. Seeo information has been compiled for use by healthcare practitioners and consumers in the [place] and therefore Seeo does not warrant that uses outside of the [place] are appropriate, unless specifically indicated otherwise. [employer] drug information does not endorse drugs, diagnose patients or recommend therapy. [employer] drug information isan informational resource designed to [...] effective or appropriate for any given patient. Seeo does not assume any responsibility for any aspect of healthcare administered with the aid of information Seeo provides. The information contained herein is not intended to cover all possible uses, directions, precautions, warnings, drug interactions, allergic reactions, or adverse effects. If you have questions about the drugs you are taking, check with your doctor, nurse or pharmacist. Copyright 4956-9274 TDX. Version: 8.01. Revision Date: 08/10/2016. furosemide (oral/injection) [...] wireless accessories such as remote control, or BlueConergyoth devices. Do not reuse a needle, syringe [...] blood pressure, such as diet pills or qqpcr-ubi-bxbm medicine. What are the possible side effects [...] may report side effects to FDA at 5-300-AUZ-2201. What other drugs will affect furosemide? Sometimes [...] drugs may affect furosemide, including prescription and dnjq-hyf-khvguxx medicines, vitamins, and herbal products. Not all [...] to ensure that the information provided by TDX. ('Multum') is accurate, up-to-date, and complete, but no guarantee is made to that effect. Drug information contained herein may be time sensitive. Seeo information has been compiled for use by healthcare practitioners and consumers in the [place] and therefore Seeo does not warrant that uses outside of the [place] are appropriate, unless specifically indicated otherwise. [employer] drug information does not endorse drugs, diagnose patients or recommend therapy. [employer] drug information isan informational resource designed to [...] effective or appropriate for any given patient. Seeo does not assume any responsibility for any aspect of healthcare administered with the aid of information Seeo provides. The information contained herein is not intended to cover all possible uses, directions, precautions, warnings, drug interactions, allergic reactions, or adverse effects. If you have questions about the drugs you are taking, check with your doctor, nurse or pharmacist. Copyright 8336-8990 TDX. Version: .. Revision Date: 11/07/2023. cetirizine (oral/injection) [...] may report side effects to FDA at 5-633-DAT-8090. What other drugs will affect cetirizine? Using cetirizine with other drugs that make you drowsy can worsen this effect. Ask your doctor before using opioid medication, a sleeping pill, a muscle relaxer, or medicine for anxiety or seizures. Other drugs may affect cetirizine, including prescription and wopi-rtt-tipppnt medicines, vitamins,and herbal products. Tell your doctor [...] to ensure that the information provided by TDX. ('Multum') is accurate, up-to-date, and complete, but no guarantee is made to that effect. Drug information contained herein may be time sensitive. Seeo information has been compiled for use by healthcare practitioners and consumers in the [place] and therefore Seeo does not warrant that uses outside of the [place] are appropriate, unless specifically indicated otherwise. [employer] drug information does not endorse drugs, diagnose patients or recommend therapy. [employer] drug information isan informational resource designed to [...] effective or appropriate for any given patient. [facility] does not assume any responsibility for any aspect of healthcare administered with the aid of information [facility] provides. The information contained herein is not intended to cover all possible uses, directions, precautions, warnings, drug interactions, allergic reactions, or adverse effects. If you have questions about the drugs you are taking, check with your doctor, nurse or pharmacist. Copyright 6815-8043 [facility] Verafin. Version: 13.. Revision Date: 11/16/2022. dofetilide (mathias [...] may report side effects to FDA at 9-145-HIM-5324. What other drugs will affect dofetilide? Other drugs may interact with dofetilide, including prescription and zqod-pbr-xqpqblr medicines, vitamins, and herbal products. Tell each [...] to ensure that the information provided by TDX. ('Multum') is accurate, up-to-date, and complete, but no guarantee is made to that effect. Drug information contained herein may be time sensitive. Seeo information has been compiled for use by healthcare practitioners and consumers in the [place] and therefore [employer] does not warrant that uses outside of the [place] are appropriate, unless specifically indicated otherwise. Seeo's drug information does not endorse drugs, diagnose patients or recommend therapy. [facility]'s drug information isan informational resource designed to [...] effective or appropriate for any given patient. [facility] does not assume any responsibility for any aspect of healthcare administered with the aid of information [employer] provides. The information contained herein is not intended to cover all possible uses, directions, precautions, warnings, drug interactions, allergic reactions, or adverse effects. If you have questions about the drugs you are taking, check with your doctor, nurse or pharmacist. Copyright 8678-6009 TDX. Version: 4.01. Revision Date: 09/09/2015. allopurinol (oral/injection) (AL [place] PURE i nol) Aly Jonesoprim What is the most important information I [...] (more content not included)... [facility]lsluwgh04-[facility]-7771 Pastoral care Progress note Pastoral Care Note [...] on 10/04/2024 04:16 PM [facility] [id number] Discharge summary Date of Service 10/04/2024 Discharge [...] When:Within 1-2 days Where:[address] [facility] [place] [phone] Business (1) Follow Up Appointments No qualifying data available. Follow Up Labs/Studies Discharge Labs No Follow-up Labs Discharge Studies No Follow-up Studies Discharge Diet No qualifying data available. Discharge Activity No qualifying data available. Readmission Risk/Palliative Score LACE Score: 13 (10/02/24 10:21:00) Palliative Total Score: 1 (10/02/24 10:21:00) Digitally Signed by DUSTIN RICHARD MD on 10/04/2024 12:27 PM [facility] HospitalBlrwzeoz35-78-5593 Discharge summary Date of Service 10/04/2024 Discharge [...] with stable QTc. Patient will be discharged hometoday with plan for follow-up. Allergies Statins myalgia [...] When:Within 1-2 days Where:[address] [place] [phone] Business (1) Follow Up Appointments No qualifying data available. Follow Up Labs/Studies Discharge Labs No Follow-up Labs Discharge Studies No Follow-up Studies Discharge Diet No qualifying data available. Discharge Activity No qualifying data available. Readmission Risk/Palliative Score LACE Score: 13 (10/02/24 10:21:00) Palliative Total Score: 1 (10/02/24 10:21:00) Digitally Signed by DUSTIN RICHARD MD on 10/04/2024 12:27 PM [facility] [id number] Cardiology Progress note Date of Service 10/03/2024 [...] on 10/03/2024 01:50 PM [facility] [id number] Note* Exam Date Time Procedure Performing Provider Status 10/03/24 10:08 PM Electrocardiogram - EKG - CV JOHNIE VELÁZQUEZ MD; Auth (Verified) ECG Final Report SINUS RHYTHM LEFT AXIS DEVIATION LOW VOLTAGE, PRECORDIAL LEADS Electronic Signature: JOHNIE VELÁZQUEZ MD 10/04/2024 21:58:08 [facility] [id number] Note* Exam Date Time Procedure Performing Provider Status 10/03/24 4:01 PM Echocardiogram, Adult - CV ALIZA PAULINO MD; Auth (Verified) [facility] [id number] Cardiology Progress note Date of Service 10/03/2024 [...] on 10/03/2024 01:50 PM [facility] [id number] Note* Exam Date Time Procedure Performing Provider Status 10/03/24 10:03 AM Electrocardiogram - EKG - CV JOHNIE VELÁZQUEZ MD; Auth (Verified) ECG Final Report SINUS RHYTHM LOW VOLTAGE, PRECORDIAL LEADS CONSIDER ANTERIOR INFARCT Electronic Signature: JOHNIE VELÁZQUEZ MD 10/04/2024 21:57:56 [facility] [id number] Note* Exam Date Time Procedure Performing Provider Status 10/02/24 10:04 PM Electrocardiogram - EKG - CV JOHNIE VELÁZQUEZ MD; Auth (Verified) ECG Final Report SINUS RHYTHM LEFT ANTERIOR FASCICULAR BLOCK PROLONGED QT INTERVAL Electronic Signature: JOHNIE VELÁZQUEZ MD 10/03/2024 19:52:07 [facility] [id number] History and physical note Date of Service [...] Diabetes mellitus Patient is currently in in [facility]. Rate is relatively well-controlled. Continue Cardizem drip. [...] on 10/02/2024 03:28 PM [facility] [id number] Note Date of Service October 02, 2024 Shared/Split visit with Dr. Dickson Shook - Dr. Weber Reason for Consultation AF -> Tikosyn re-loading Referring Physician Gen Bouchra History of Present Illness This is a [...] only), Blood, Once, Nurse Collect, Preferred Lab: [facility], Stop date 10/03/24 5:00:00 EDT Electrocardiogram(EKG), 10/02/24 [...] on 10/02/2024 02:36 PM [facility] [id number] Note Date of Service October 02, 2024 [...] only), Blood, Once, Nurse Collect, Preferred Lab: [facility], Stop date 10/03/24 5:00:00 EDT Electrocardiogram(EKG), 10/02/24 [...] on 10/02/2024 02:36 PM [facility] HospitalEgfnlrmi06-82-6685 Evaluation + Plan noteExtracted from: Title:History and Physical Author:DUSTIN RICHARD MD Date:10/02/24 Paroxysmal atrial fibrillati on Tachyarrhythmia induced cardiomyopathy Heart failure with improved EF (EF 30 to 35% in October 2022 to 55% in 2023) Moderate to severe LVH Mild pulmonary hypertension Severely dilated LA (LA 5.1 cm, DANIEL??) Obesity and KOFFI (intolerant to CPAP) Hypertension Diabetes mellitus Patient is currently in in [facility]. Rate is relatively well-controlled. Continue Cardizem drip. [...] Appointment Date:10/23/2024 04:00:00 PM Scheduled Provider:ISADORA CORREA Location:[facility] Appointment Type:PC OV Appointment Date:11/08/2024 02:30:00 PM Scheduled Provider:EDY WEBER Location:[facility] Appointment Type:CV OV Hospital Follow Up Diagnostic Tests Pending * [...] VELÁZQUEZ MD 10/03/2024 19:51:33 [facility] [id number] History and physical note Date of Service [...] Diabetes mellitus Patient is currently in in [facility]. Rate is relatively well-controlled. Continue Cardizem [...] on 10/02/2024 03:28 PM [facility] [id number] Respiratory therapy Hospital Progress note Respiratory Therapy [...] on 10/02/2024 11:12 AM [facility] [id number] Note* Exam Date Time Procedure Performing Provider Status 10/02/24 8:23 AM Electrocardiogram - EKG - CV Brant VELÁZQUEZ MD; Auth (Verified) ECG Final Report ATRIAL FIBRILLATION LEFT ANTERIOR FASCICULAR BLOCK Electronic Signature: JOHNIE VELÁZQUEZ MD 10/03/2024 19:51:22 [facility] [id number] Note* Exam Date Time Procedure Performing Provider Status 10/02/24 6:24 AM Electrocardiogram - EKG - CV Brant VELÁZQUEZ MD; Auth (Verified) ECG Final Report ATRIAL FIBRILLATION WITH RAPID VENTRICULAR RESPONSE Right axis deviation Electronic Signature: JOHNIE VELÁZQUEZ MD 10/03/2024 19:51:11 [facility] [id number] Nurse Progress note justynbritany Corey [phone] Digitally Signed by Halley Staples RN on 10/02/2024 04:[address] [facility]05-07-2025 Nurse Progress note ready bed at main, transport called at 0230 ETA 90 min Digitally Signed by Halley Staples RN on 10/02/2024 04:[address] [facility]05-07-2025 Nurse Progress note ready bed at main, transport called at 0230 ETA 90 min Digitally Signed by Halley Staples RN on 10/02/2024 04:[address] [facility]05-07-2025 Note* Exam Date Time Procedure Performing Provider Status 10/02/24 1:43 AM XR Chest 1 View DARNELL MOLINA MD; A [facility] (Verified) [id number] ORIGINAL EXAMINATION: ONE XRAY VIEW OF THE [...] 10/02/2024 2:02:33 AM Ordering Provider: DELORES MURO [facility]05-07-2025 Note* Exam Date Time Procedure Performing Provider Status 10/02/24 12:38 AM EKG [ED AOH] - CV DELORES MURO DO; A [facility] (Verified) ECG Final Report Atrial fibrillation Inferior infarct, old Probable anteroseptal infarct, old Prolonged QT interval Baseline wander in lead(s) III,V1,V2,V5,V6 Compared to ECG at 08/13/2024 11:03:57 Electronic Signature: DELORES UMRO DO 10/02/2024 02:28:[address] [facility]10-30-2024 Note The microscopic examination is performed, except in the case of Gross Only. [facility] 10-29-2024 Note The microscopic examination is performed, except in the case of Gross Only. [facility] 10-29-2024 Note The microscopic examination is performed, except in the case of Gross Only. [facility] 10-29-2024 Note The microscopic examination is performed, except in the case of Gross Only. [facility] 10-29-2024 Note The microscopic examination is performed, except in the case of Gross Only. [facility] 10-29-2024 Note The microscopic examination is performed, except in the case of Gross Only. [facility] 10-29-2024 Note The microscopic examination is performed, except in the case of Gross Only. [facility] 09-09-2024 Note. MICRO - Microbiology PROCEDURE: Blood [...] was performed at: [facility], [address] [place] [address], [facility]- , [facility]09-09-2024 Note. MICRO - Microbiology PROCEDURE: Blood Culture [...] Locations *1: This test was performed at: [address], [address] [place], [place] [address]-09-2024 Note. MICRO - Microbiology PROCEDURE: Blood Culture [...] Locations *1: This test was performed at: [address], [address] [place], [place] [address]-09-2024 Note. MICRO - Microbiology PROCEDURE: Blood Culture [...] was performed at: [facility], [address] [place] [address], [phone]- , [facility] [id number] Hospital Discharge instructions Patient Education 02/01/2024 17:18:13 Atrial Fibrillation, Zgrp-jf-Izog Atrial Fibrillation Atrial fibrillation is a type [...] Follow these instructions at home: Medicines Take ykcz-oub-ipegulp and prescription medicines only as told by [...] 02/21/2009 Document Revised: 07/19/2018 Document Reviewed: 07/06/2018 [employer] Patient Education 2020 [employer]. Follow Up Care 01/31/2024 00:20:11 With:ISADORA CORREA Address: [address] [place], [place] [address]- When:1-2 days Comments:Please call the office to schedule a hospital follow-up appointment. [facility] 09-05-2024 Note Discharge Instructions Thank you for allowing [facility] to assist you with your healthcare needs. The following is importantdischarge information regarding your hospital visit. Your Care Team ISADORA CORREA Your Diagnosis Shortness of breath What to do next Instructions From Your Doctor Resume taking all your usual medications Keep yourself hydrated Follow-up with your primary care physician and log snaker Scheduled Follow-Up Appointments Appointment Type When With Where Contact Information StatusPC Wellness Annual w/Labs 02/13/2024 03:30 PM EDT ISADORA CORREA [facility] Confirmed Follow Up Appointments Follow Up with ISADORA CORREA When:Within 1-2 days Where:[address] [place], [place] [id number]- Additional Information: Please call the office to [...] Follow these instructions at home: Medicines Take gzfb-yrr-pbfrwbk and prescription medicines only as told by [...] 02/21/2009 Document Revised: 07/19/2018 Document Reviewed: 07/06/2018 [employer] Patient Education 2020 [employer]. Additional Information VACCINATE! IT SAVES LIVES! Members of the community who have not yet received the COVID-19 vaccine and would like to receive it can visit one of [facility] vaccine clinics. There are many vaccine clinic locations within the [facility]. For locations and available times, please visit [email or web address] It is important to note that some COVID mobile vaccine clinics are held outdoors and may be canceled in rainy or stormy conditions. To learn more about pediatric vaccinations (ages 5-11), we invite you to visit the [facility] webpage. [email or web address]/[email or web address] stions.htmlTo learn more about the COVID-19 vaccine, we invite you to visit the CDC website for a list of frequently asked questions.https://www.cdc.gov/coronavirus/2019-ncov/vaccines/faq.html [facility] Patient Portal Access Instructions: Stay connected with your healthcare team and access your personal medical information anytime with the [facility] Patient Portal. Please follow the directions below to create your [facility] account: 1.Access the email account you provided upon registration to the hospital/physician office.2.Look for an invitation email from [facility].3.Open the email and access the invitation link: AcceptInvitation to [facility].4.Fill in the required orr to create your account. To access your account, visit [email or web address]. Click the blue button labeled Access Patient [...] who you will allowto register on the [facility] [employer] mobile marketing Patient Portal for access to your information. You can also access the [facility] Patient Portal on the [facility] frida. Simply click on Patient Portal and then log into your account. If you would like to receive a full copy of your medical records, please contact the [facility] Medical Records Department by calling [phone], Monday through Monday between 8 a.m. and [...] Call your local pharmacy or go to http://[email or web address]/[email or web address] to find one close to you.3.Make use of household items: Use cat litter or old coffee grounds to dispose medications if other options arenot available. Mix your drugs with these household products, seal them in an airtight container andthrow it into the garbage. Call [facility]: [phone] to be sure your drugs can be [...] COPY. Signatures Patient Education Materials Atrial Fibrillation, Rsyr-ud-Iaxn Medication Leaflets My discharge plan and instructions have been reviewed and explained to me and I,SOCORRO KELLEY understand my current condition and have read and understand these discharge instructions. I have received awritten copy of the plan/instructions. If I have questions, I am aware that I should contact my doctor. Patient/Emergency Medicine Signature: Date/Time: Relationship to Patient: Witness Name/Signature: Date/Time: [facility] [id number] Discharge summary Date of Service 02/01/2024 Discharge [...] Hospital on 01/31/2024 as a transfer from [place] for A-fib with RVR. Apparently the patient [...] Follow-up with your primary care physician and log snaker Medications Unchanged acetaminophen (Tylenol)by mouth as needed [...] When:Within 1-2 days Where:[address] [place] [address]- Additional Information: Please call the office to [...] on 02/01/2024 04:53 PM [facility] HospitalAoqqglcw33-49-0810 Cardiology Progress note HPI: 53-year-old morbidly obese [...] murmurs appreciated Abdomen benign Extremities good pulses [employer]ER grossly intact Skin warm to touch Laboratory [...] on 02/01/2024 04:26 PM [facility] HospitalUvzvrnop05-21-5270 Anesthesiology Consult note Patient: SOCORRO KELLEY Age: [...] device, # 1 EA, 0 Refill(s), Pharmacy: [facility], 177.8, cm, 11/28/23 13:54:00 EDT, Height, 151.4, kg, 11/28/23 13:54:00 EDT, Dosin... Blood Glucose Test Strips: See Instructions, 1 bottle of 100 Test once daily, # 1 EA, 11 Refill(s), Pharmacy: [facility], 177.8, cm, 11/28/23 13:54:00 EDT, Height, 151.4, kg, 11/28/23 13:54:00 EDT, Dosing Weight FLUoxetine 20 mg oral capsule: Dose : 20 mg = 1 cap(s), Oral, qDay, # 30 cap(s), 3 Refill(s), Pharmacy: [facility], 177.8, cm, 11/28/23 13:54:00 EDT, Height, kg, 11/28/23 13:54:00 EDT,Dosing Weight Lancets: See Instructions, qs 1 month supply Test once daily, # 1 EA, 11 Refill(s), Pharmacy: [facility], 177.8, cm, 11/28/23 13:54:00 EDT, Height, 151.4, kg, 11/28/23 13:54:00 EDT, Dosing Weight Lasix 40 mg oral tablet: See Instructions, 1 tab in AM and 0.5 tab in PM, # 135 tab(s), 3 Refill(s), Pharmacy: [facility], 177.8, cm, 11/28/23 13:54:00 EDT, Height, kg, 11/28/23 13:54:00 EDT, Dosing Weight Symbicort 80 mcg-4.5 mcg/inh Inhaler: Dose = 2 puff(s), Inhalation, BID, # 10.2 gram(s), 3 Refill(s), Pharmacy: [facility], 177.8, cm, 11/28/23 13:54:00 EDT, Height, kg, 11/28/23 13:54:00 EDT, Dosing Weight Tikosyn 250 mcg oral capsule: Dose : 250 mcg = 1 cap(s), Oral, BID, # 180 cap(s), 3 Refill(s), Pharmacy: [facility]/pharmacy #[id number], 177.8, cm, 11/28/23 13:54:00 EDT, Height, kg, 11/28/23 13:54:00 EDT, Dosing Weight Toprol-XL 100 mg oral tablet, extended release: Dose : 100 mg = 1 tab(s), Oral, BID, do not crush or chew, # 180 tab(s), 3 Refill(s), [facility] [facility], Shortness of breath, 177.8, cm, 11/28/23 13:54:00 EDT, Height, kg, 11/28/23 13:54:00 EDT, Dosing Weight Trulicity Pen 1.5 mg/0.5 mL subcutaneous solution: Dose : 1.5 mg =, Subcutaneous, qWeek, sent in absence of PCP, # 4 EA, 3 Refill(s), Pharmacy: [facility], 177.8, cm, 11/28/23 13:54:00EDT, Height, kg, 11/28/23 13:54:00 EDT, Dosing Weight Vistaril 25 mg oral capsule: Dose : 25 mg = 1 cap(s), Oral, QID, PRN as needed for anxiety, X 30 day(s), # 120 cap(s), 5 Refill(s), 06/09/24 16:10:00 EST, Pharmacy: [facility], 177.8, cm, 11/28/23 13:54:00 EDT, Height, kg, 11/28/23 13:54:00 EDT, Dosing Weight Xarelto 20 mg oral tablet: Dose : 20 mg = 1 tab(s), Oral, qHS, # 90 tab(s), 3 Refill(s), Pharmacy: [facility], 177.8, cm, 11/28/23 13:54:00 EDT, Height, 151.4, kg, 11/28/23 13:54:00 EDT, Dosing Weight allopurinol 100 mg oral tablet: Dose : 100 mg = 1 tab(s), Oral, qDay, # 90 tab(s), 3 Refill(s), Pharmacy: [facility], 177.8, cm, 11/28/23 13:54:00 EDT, Height, kg, 11/28/23 13:54:00 EDT, Dosing Weight cetirizine 10 mg oral tablet: Dose : 10 mg = 1 tab(s), Oral, Daily, # 90 tab(s), 3 Refill(s), Pharmacy: [facility], 177.8, cm, 11/28/23 13:54:00 EDT, Height, kg, 11/28/23 13:54:00 EDT,Dosing Weight nystatin 100,000 units/g topical cream: Apply 1 frida, Topical, BID, X 10 day(s), # 30 gram(s), 1 Refill(s), Pharmacy: [facility]/pharmacy #[id number], Cream, 177, cm, 01/12/24 9:42:00 EDT, Height, 148.6, kg, 01/12/24 9:42:00 EDT, Dosing Weight omeprazole 40 mg oral delayed release capsule: Dose : 40 mg = 1 cap(s), Oral, BID, before a meal., # 180 cap(s), 3 Refill(s), Pharmacy: [facility], 177.8, cm, 11/28/23 13:54:00 EDT, Height, kg, 11/28/23 13:54:00 EDT, Dosing Weight rosuvastatin 20 mg oral tablet: Dose : 20 mg = 1 tab(s), Oral, Daily, # 100 tab(s), 3 Refill(s), Pharmacy: [facility], 177.8, cm, 11/28/23 13:54:00 EDT, Height, kg, 11/28/23 13:54:00 EDT, Dosing Weight sacubitril-valsartan 49 mg-51 mg oral tablet: Dose = 1 tab(s), Oral, BID, # 180 tab(s), 3 Refill(s), Pharmacy: [facility], 177.8, cm, 11/28/23 13:54:00 EDT, Height, kg, 11/28/23 13:54:00 EDT, Dosing Weight spironolactone 25 mg oral tablet: Dose : 25 mg = 1 tab(s), Oral, qDay, # 90 tab(s), 3 Refill(s), Pharmacy: [facility], 177.8, cm, 11/28/23 13:54:00 EDT, Height, kg, 11/28/23 13:54:00 EDT, Dosing Weight tiZANidine 2 mg oral tablet: Dose : 2 mg = 1 tab(s), Oral, q8h, PRN as needed for muscle spasm, # 90 tab(s), 2 Refill(s), Pharmacy: [facility], 177.8, cm, 11/28/23 13:54:00 EDT, Height, kg, 11/28/23 13:54:00 EDT, Dosing Weight traZODone 100 mg oral tablet: Dose : 100 mg = 1 tab(s), Oral, qHS, # 90 tab(s), 3 Refill(s), Pharmacy: [facility], 177.8, cm, 11/28/23 13:54:00 EDT, [...] list: Medical Asthma exacerbation / SNOMED CT 3658283703 / Confirmed Anxiety / SNOMED CT 03771406 / Confirmed Atopic dermatitis / SNOMED CT 83186876 / Confirmed BMI 45.0-49.9, adult / SNOMED CT 2489843800 / Confirmed Cardiomyopathy / SNOMED CT 833010750 / Confirmed Diabetes mellitus / SNOMED CT 176582110 / Confirmed Generalized anxiety disorder / SNOMED CT 83680226 / Confirmed Hyperlipidemia / SNOMED CT 27186456 / Confirmed Hypertension / SNOMED CT 6246775521 / Confirmed Insomnia / SNOMED CT 800218672 / Confirmed Moderate asthma / SNOMED CT 0085453281 / Confirmed Morbid obesity / SNOMED CT 490486485 / Confirmed Chewing tobacco nicotine dependence / SNOMED CT 34474115 / Confirmed Obstructive sleep apnea / SNOMED CT 761461384 / Confirmed Right knee pain / SNOMED CT 6729482116 / Confirmed Paroxysmal atrial fibrillation / SNOMED CT 418723425 / Confirmed Screening for ischemic heart disease / SNOMED CT 183807094 / Confirmed Screening for colon cancer / SNOMED CT 290430649 / Confirmed Prediabetes / SNOMED CT 0117155933 / Confirmed Right flank pain / SNOMED CT 517188271 / Confirmed Type 2 diabetes mellitus with hemoglobin A1c goal of less than 7.0% / SNOMED CT 029601938 / Confirmed Wheezing / SNOMED CT 43509672 / Confirmed, Active Problems (26) Anxiety Asthma [...] Mother Grandparent Stroke Father Procedure history: Cardioversion ([id number]) on 12/23/2022 at 52 Years. Echocardiogram ([id number]) on 11/11/2022 at 52 Years. Comments: 03/20/2023 [...] atrial pressure is 15 mm Hg Elbow ([id number]). Comments: 07/11/2022 8:26 SHAHEEN Nunez bursitis - right Social History: Social & Psychosocial [...] On and Limits Checked Nail Bed Color [place] Capillary Refill < 2 seconds Heart Sounds [...] Elimination Voiding, no difficulties All Extremity Description [place] Skin Temperature Warm Temperature All Extremities Warm Skin Description [place], Dry Skin Integrity Intact Skin Turgor Non-Elastic Mucous Membrane Color [place] Mucous Membrane Description Moist Neurological Language Able to speak clearly Neurological Symptoms Patient denies Gait Unable to assess Extremity Movement Equal Swallowing Difficulty None Characteristics of Communication Appropriate Characteristics of Speech Clear Facial Symmetry Symmetric Level of Consciousness Alert Aspiration Risk None Eye Opening Response Luis Felipe Spontaneously Best Motor Response Herndon Obeys simple commands Best Verbal Response Herndon Oriented Herndon Coma Score 15 CLARA Yes Strength All [...] On and Limits Checked Nail Bed Color [place] Capillary Refill < 2 seconds Heart Sounds ICU S1S2 Heart Rhythm Irregular Cardiac Rhythm Sinus rhythm Monitoring Lead II, V5/MCL5 LA Interval 0.16 second(s) QRS Duration 0.08 second(s) [...] Elimination Voiding, no difficulties All Extremity Description [place] Skin Temperature Warm Temperature All Extremities Warm Skin Description [place], Dry Skin Integrity Intact Skin Turgor Non-Elastic Mucous Membrane Color [place] Mucous Membrane Description Moist Neurological Language Able to speak clearly Neurological Symptoms Patient denies Gait Unable to assess Extremity Movement Equal Swallowing Difficulty None Characteristics of Communication Appropriate Characteristics of Speech Clear Facial Symmetry Symmetric Level of Consciousness Alert Aspiration Risk None Eye Opening Response [place] Spontaneously Best Motor Response Luis Felipe Obeys simple commands Best Verbal Response [place] Oriented Luis Felipe Coma Score 15 CLARA [...] On and Limits Checked Nail Bed Color [place] Capillary Refill < 2 seconds Heart Sounds [...] Movement Makes facial grimaces All Extremity Description [place] Skin Temperature Warm Temperature All Extremities Warm Skin Description [place], Dry Skin Integrity Intact Skin Turgor Non-Elastic Mucous Membrane Color [place] Mucous Membrane Description Moist Sensory Perception [place] [...] Felipe Obeys simple commands Best Verbal Response [place] Oriented Luis Felipe Coma Score 15 CLARA [...] On and Limits Checked Nail Bed Color [place] Capillary Refill < 2 seconds Heart Sounds [...] intact Skin Turgor Non-Elastic Mucous Membrane Color [place] Mucous Membrane Description Moist Neurological Language Able to speak clearly Neurological Symptoms Patient denies Extremity Movement Equal Swallowing Difficulty None Characteristics of Communication Appropriate Characteristics of Speech Clear Facial Symmetry Symmetric Level of Consciousness Alert Aspiration Risk None Eye Opening Response Luis Felipe Spontaneously Best Motor Response Luis Felipe Obeys simple commands Best Verbal Response [place] Oriented Luis Felipe Coma Score 15 CLARA [...] of Bed Elevated 30 01/31/2024 15:[address] [facility] Current Living Situation I have a steady place to live [facility] Current Issues Living Environment None [facility] Worried Food Running Out P12M Never true [facility] Food Gone, No Money To Buy P12M Never true [facility] No Transport Med/Appt/Work P12M No [facility] Utilities Threaten Shut Off P12M No [facility] Anyone Physically Hurt You Never (1) [facility] Anyone Insult Or Talk Down To You Never (1) [facility] Anyone Threaten You With Harm Never (1) [facility] Anyone Scream Or Curse At You Never (1) [facility] Safety Total Score 4 Living Situation Lives with family Discharge To, Anticipated Home independently Anticipated Discharge Date 02/02/2024 Transition Planning Note Transition Planning Initial Assessment 01/31/2024 15:36 EDT Primary Care Phone Message Transition of Care sent from [facility] 01/31/2024 14:59 EDT heparin 9,000 unit(s) unit(s) Dextrose 5% Premix Diluent 90 mL mL 01/31/2024 14:43 EDT [place] Body Weight 72.7 kg Home Diet Regular Weight Chg, Unintentional Nutrition Hx Weight stable per [place] history Appetite Good Nutrition Plan of Care Dietitian follow up/monitor, Encourage PO feedings, Participate in team conference Nutrition Follow-Up Needed Yes Days until [employer] Follow Up Seven days Adult Nutrition Initial Assessment/Plan Adult Nutrition Assessment/Plan 01/31/2024 14:22 EDT Transition of Care Note Transition of Care sent from [facility] 01/31/2024 14:00 EDT Hand Right 01/30/2024 20 [...] On and Limits Checked Nail Bed Color [place] Capillary Refill < 2 seconds Heart Rhythm [...] Description Normal for ethnicity Mucous Membrane Color [place] Mucous Membrane Description Moist Hand Right 01/30/2024 [...] On and Limits Checked Nail Bed Color [place] Capillary Refill < 2 seconds Heart Rhythm [...] intact Skin Turgor Non-Elastic Mucous Membrane Color [place] Mucous Membrane Description Moist Continuous IV Infusions [...] Alert Aspiration Risk None Eye Opening Response Herndon Spontaneously Best Motor Response Herndon Obeys simple commands Best Verbal Response Herndon Oriented Herndon Coma Score 15 CLARA Yes Left Pupil [...] On and Limits Checked Nail Bed Color [place] Capillary Refill < 2 seconds Heart Rhythm Irregular Pretibial edema Bilateral Edema Ratin+ trace/2mm Cardiac Rhythm Atrial fibrillation Monitoring Lead II, V6/MCL6 Alarms On and Functional Yes Respirations Unlabored Respi (more content not included)... [id number] NoteSINUS RHYTHM IVCD MISSING LEAD(S): V1,V2,V3,V4,V5 Electronic Signature: MOY WATTS MD 02/01/2024 11:10:[address] [place] [address] 09-04-2024 Cardiology Consult note Date of Service [...] anxiety and gout who initially presented to [facility] on 01/30/2024 for shortness of breath [...] not tolerate Cardizem drip. Patient transferred to [facility] for further management. Placed on Levophed. [...] (s): 1.87 H Assessment/Plan A-fib with RVR ([id number] 2) Near syncopal episode Tachycardia mediated cardiomyopathy [...] Will continue to follow. Patient seen with log snaker Dr. Hartley who agreed with plan. Please [...] on 01/31/2024 12:53 PM [facility] [id number] Note* Exam Date Time Procedure Performing Provider [...] Locations *1: This test was performed at: [address], [address] [place], [place] [address]01-31-2024 Note. MICRO - Microbiology PROCEDURE: Blood Culture [...] Locations *1: This test was performed at: [address], [address] [place], [place] [address]-31-2024 Evaluation + Plan noteExtracted from: Title:History and Physical Author:FRACISCO PAULINO Kavita Date:01/31/24 A-fib with RVR Hx of A-fib [...] prophylactically got a dose of ceftriaxone at [facility]. We will continue with prophylactic ceftriaxone dose [...] atrial fibrillation with rapid ventricular rate at [facility] admitted to the ICU overnight [...] 03:30:00 PM Scheduled Provider:ISADORA CORREA Location:[facility] Appointment Type: Wellness Annual w/Labs Diagnostic Tests Pending * [...] evaluated On arrival to the ER at [facility], patient was febrile 37.4, tachycardic 133, tachypneic 21, BP 90/76, was saturating 96% on room air. Labs done at [facility] 01/30/2024 revealed pO2 51 on the gases [...] prophylactically got a dose of ceftriaxone at [facility].We will continue with prophylactic ceftriaxone dose as [...] on 01/31/2024 08:06 AM [facility] [id number] Cardiology Consult note Date of Service 01/31/2024 [...] anxiety and gout who initially presented to [facility] on 01/30/2024 for shortness of breath [...] not tolerate Cardizem drip. Patient transferred to [facility] for further management. Placed on Levophed. [...] (s): 1.87 H Assessment/Plan A-fib with RVR ([id number] 2) Near syncopal episode Tachycardia mediated cardiomyopathy [...] Will continue to follow. Patient seen with log snaker Dr. Hartley who agreed with plan. Please [...] on 01/31/2024 12:53 PM [facility] [id number] NoteATRIAL FIBRILLATION LAD, CONSIDER LEFT ANTERIOR FASCICULAR BLOCK LOW VOLTAGE, PRECORDIAL LEADS BORDERLINE T ABNORMALITIES, INFERIOR LEADS BORDERLINE PROLONGED QT INTERVAL Electronic Signature: MOY WATTS MD 02/01/2024 11:10[facility] Note. MICRO - Microbiology PROCEDURE: Blood [...] Locations *1: This test was performed at: [address], [address] [place], [place] [address]-31-2024 Note. MICRO - Microbiology PROCEDURE: Blood Culture [...] Locations *1: This test was performed at: [address], [address] [place], [place] [address]-31-2024 History and physical note Date of Service [...] evaluated On arrival to the ER at [facility], patient was febrile 37.4, tachycardic 133, tachypneic 21, BP 90/76, was saturating 96% on room air. Labs done at [facility] 01/30/2024 revealed pO2 51 on the gases [...] prophylactically got a dose of ceftriaxone at [facility].We will continue with prophylactic ceftriaxone dose as [...] on 01/31/2024 08:06 AM [facility] [id number] Note ORIGINAL EXAMINATION: CT OF THE HEAD [...] Sign Date: 01/30/2024 10:16:46 PM Ordering Provider: [facility]09-03-2024 Note ORIGINAL EXAMINATION: ONE XRAY VIEW [...] Date: 01/30/2024 9:28:12 PM [facility] NoteAtrial flutter Left anterior fascicular block Borderline low voltage, extremity leads Abnormal R-wave progression, late transition Borderline ST depression, lateral leads Prolonged QT interval Baseline wander in lead(s) V3,V5 Electronic Signature: MD SAMY JONES MD 01/30/2024 21:01:46[facility] 03-13-2024 Hospital Discharge instructions Patient Education 08/09/2023 [...] get worse or if new symptoms appear. 3097-6051 [employer]. [address] [place] [address], [place] [address]. All rights reserved. This information is not intended as a substitute for professional medical care. Always follow yourhealthcare professional's instructions. Follow Up Care 08/09/2023 21:02:01 With:ISADORA CORREA Address: [address] [facility] [place] [address]- [phone] Business (1) When:5-7 days Comments:Use warm compresses, Tylenol as discussed, return if any worsening or concerning symptoms. Follow-up closely with your doctor. [facility] 03-13-2024 Note Discharge Instructions Thank you for [...] closely with your doctor. Where: [address] [facility] [place] [address]- [phone] Business (1) Allergies NKA Medications Please ask [...] get worse or if new symptoms appear. 7624-3007 [employer]. [address] [place] [address], [place] [address]. All rights reserved. This information is not intended as a substitute for professional medical care. Always follow yourhealthcare professional's instructions. Additional Information VACCINATE! IT SAVES LIVES! Members of the community who have not yet received the COVID-19 vaccine and would like to receive it can visit one of [facility] vaccine clinics. There are many vaccine clinic locations within the [facility]. For locations and available times, please visit www.[email or web address]/. It is important to note that some COVID mobile vaccine clinics are held outdoors and may be canceled in rainy or stormy conditions. To learn more about pediatric vaccinations (ages 5-11), we invite you to visit the [facility] webpage. https://[email or web address]/[email or web address]-[email or web address] [email or web address].htmlTo learn more about the COVID-19 vaccine, we invite you to visit the CDC website for a list of frequently asked questions. https://www.cdc.gov/coronavirus/2019-ncov/vaccines/faq.html [facility] Patient Portal Access Instructions: Stay connected with your healthcare team and access your personal medical information anytime with the [facility] Patient Portal. If you would like a [...] access the invitation link: Accept Invitation to [facility]4.Fill in the required orr to create your account. Sign into [email or web address] with your username and password that you [...] you will allow to register on the [facility] Patient Portal for access to your information. You can also access the [facility] Patient Portal on the Huckletree frida. Simply click on Health Records under [employer] and then click on the Larry logo. [...] Call your local pharmacy or go to http://[employer].PollitoIngles/3P4Gv9l to find one close to you.3.Make use of household items: Use cat litter or old coffee grounds to dispose medications if other options arenot available. Mix your drugs with these household products, seal them in an airtight container andthrow it into the garbage. Call [facility]: [phone] to be sure your drugs can be [...] aware that I should contact my doctor. Patient/Emergency Medicine Signature: Date/Time: Relationship to Patient: Witness Name/Signature: Date/Time: [facility]01-16-2024 Hospital Discharge instructions Patient Education 06/13/2023 01:01:02 [...] exposed to secondhand smoke. You may use zxyk-ikz-ssmesas medicine to control fever or pain, unless [...] loosen secretions in the nose and lungs. Cnly-cse-qwihmbn cough, cold, and sore-throat medicines will not [...] shortness of breath, or pain with breathing 1508-8716 [employer]. [address] [place] [address], [place] [address]. All rights reserved. This information is not intended as a substitute for professional medical care. Always follow yourhealthcare professional's instructions. Follow Up Care 06/13/2023 00:01:18 With:ISADORA CORREA Address: [address] [facility] [place] [address]- [phone] Business (1) When:3-7 days Comments:Schedule appointment for [...] portal.Return to the ED if symptoms worsen. [facility] 01-16-2024 Note Discharge Instructions Thank you for allowing [facility] to assist you with your healthcare needs. [...] to the ED if symptoms worsen. Where: [address] [facility] [place] [address]- [phone] Business (1) Allergies NKA Medications Please ask [...] exposed to secondhand smoke. You may use icrg-rgq-vbmohxl medicine to control fever or pain, unless [...] loosen secretions in the nose and lungs. Iggx-kjl-bhrqykd cough, cold, and sore-throat medicines will not [...] shortness of breath, or pain with breathing 8684-0937 [employer]. [address] [place] [address]. All rights reserved. This information is not intended as a substitute for professional medical care. Always follow yourhealthcare professional's instructions. Additional Information VACCINATE! IT SAVES LIVES! Members of the community who have not yet received the COVID-19 vaccine and would like to receive it can visit one of [facility] vaccine clinics. There are many vaccine clinic locations within the [facility]. For locations and available times, please visit [email or web address]/. It is important to note that some COVID mobile vaccine clinics are held outdoors and may be canceled in rainy or stormy conditions. To learn more about pediatric vaccinations (ages 5-11), we invite you to visit the [facility] webpage. https://www.[email or web address]/pages/1699-[email or web address]-[email or web address]-Xrx stions.htmlTo learn more about the COVID-19 vaccine, we invite you to visit the CDC website for a list of frequently asked questions. https://www.cdc.gov/coronavirus/2019-ncov/vaccines/faq.html [facility] Patient Portal Access Instructions: Stay connected with your healthcare team and access your personal medical information anytime with the [facility] Patient Portal. If you would like a full copy of your medical records please contact the [facility] Medical Records Department Monday through Monday between 8a.m. and 4:30p.m. Please follow the directions below to access the portal: 1.Access the email account you provided upon registration to the [facility].2.Look for an invitation email from [facility].3.Open the email and access the invitation link: Accept Invitation to [facility]4.Fill in the required orr to create your account. Sign into [email or web address] with your username and password that you [...] you will allow to register on the [facility] Patient Portal for access to your information. You can also access the [facility] Patient Portal on the Simplee. Simply click on Health Records under [employer] and then click on the [employer] logo. HOW TO SAFELY DISPOSE OF PRESCRIPTION [...] Call your local pharmacy or go to http://[employer].PollitoIngles/0W7Cc8f to find one close to you.3.Make use of household items: Use cat litter or old coffee grounds to dispose medications if other options arenot available. Mix your drugs with these household products, seal them in an airtight container andthrow it into the garbage. Call [facility]: [phone] to be sure your drugs can be [...] aware that I should contact my doctor. Patient/Emergency Medicine Signature: Date/Time: Relationship to Patient: Witness Name/Signature: Date/Time: [facility]01-16-2024 Note ORIGINAL EXAMINATION: ONE XRAY VIEW OF [...] Date: 06/13/2023 12:39:50 AM Ordering Provider: DEMI [facility]01-12-2024 Hospital Discharge instructions Patient Education 06/09/2023 20:03:33 Atrial Fibrillation, Gbhr-yv-Afij Atrial Fibrillation Atrial fibrillation is a type [...] Follow these instructions at home: Medicines Take eoif-wtv-gmlewvg and prescription medicines only as told by [...] 02/21/2009 Document Revised: 07/19/2018 Document Reviewed: 07/06/2018 [employer] Patient Education 2020 [employer] Follow Up Care 06/06/2023 16:24:50 With:ISADORA CORREA APRN-[facility] Address: [address] [place], [place] [address]- [phone] When: Unknown Comments:PLEASE CALL THIS OFFICE TO SCHEDULE A HOSPITAL FOLLOW UP APPOINTMENT With:MOY WATTS MD Address: [address] [place] [address] [address] [place], [place] [address]- [phone] When:07/17/2023 15:15:00 Comments:THIS APPOINTMENT WILL BE WITH ZHOU ESPINOSA CNP [facility] 01-12-2024 Note Discharge Instructions Thank you for allowing [facility] to assist you with your healthcare needs. The following is importantdischarge information regarding your hospital visit. Your Care Team ISADORA CORREA Your Diagnosis Shortness of breath What to do next Scheduled Follow-Up Appointments Appointment Type When With Where Contact InformationPC OV 06/20/2023 02:30 PM EST ISADORA CORREA [facility] CV OV 07/17/2023 03:15 PM EST ZHOU ESPINOSA [facility] Follow Up Appointments Follow Up with MOY WATTS MD When 07/17/2023 03:15 PM EST Why: THIS APPOINTMENT WILL BE WITH ZHOU ESPINOSA CNP Where: [address] [place] [address] [address] [place], [place] [address]- [phone] Follow Up with ISADORA CORREA When Why: PLEASE CALL THIS OFFICE TO SCHEDULE A HOSPITAL FOLLOW UP APPOINTMENT Where: [address] [place], [place] [id number]- [phone] The Following Activity and Diet Have Been [...] day Refills: 2 Pickup at [id number] Changed FLUoxetine (FLUoxetine 10 mg oral capsule) 1 cap by mouth Once a day Pickup at [facility] #[id number] Unchanged allopurinol (allopurinol 100 mg oral tablet) [...] Daily at bedtime Pharmacy Information [facility][id number]: [address] [place] [address] [phone] Please take this list to your next doctor s visit. Bring all medications you take, including over the counter medications, herbals and other supplements with you to your doctor s visit. Patients and families are reminded to discard old lists and to update any records with all medication providers or retail pharmacies. Medication Leaflets dofetilide (mathias FET i lide) Ticoltsyn What is the most important information I [...] may report side effects to FDA at 3-918-ZFF-9373. What other drugs will affect dofetilide? Other drugs may interact with dofetilide, including prescription and trgu-ihi-ajnwuco medicines, vitamins, and herbal products. Tell each [...] to ensure that the information provided by TDX. ('Multum') is accurate, up-to-date, and complete, but no guarantee is made to that effect. Drug information contained herein may be time sensitive. Seeo information has been compiled for use by healthcare practitioners and consumers in the [place] and therefore Seeo does not warrant that uses outside of the [place] are appropriate, unless specifically indicated otherwise. [employer] drug information does not endorse drugs, diagnose patients or recommend therapy. [employer] drug information isan informational resource designed to [...] effective or appropriate for any given patient. [facility] does not assume any responsibility for any aspect of healthcare administered with the aid of information [facility] provides. The information contained herein is not intended to cover all possible uses, directions, precautions, warnings, drug interactions, allergic reactions, or adverse effects. If you have questions about the drugs you are taking, check with your doctor, nurse or pharmacist. Copyright 3388-6322 TDX. Version: 4.01. Revision Date: 09/09/2015. Education Materials [...] Follow these instructions at home: Medicines Take zljc-kaz-yipvmjj and prescription medicines only as told by [...] 02/21/2009 Document Revised: 07/19/2018 Document Reviewed: 07/06/2018 [employer] Patient Education 2020 [employer]. Additional Information VACCINATE! IT SAVES LIVES! Members of the community who have not yet received the COVID-19 vaccine and would like to receive it can visit one of [facility] vaccine clinics. There are many vaccine clinic locations within the [facility]. For locations and available times, please visit [email or web address]/. It is important to note that some COVID mobile vaccine clinics are held outdoors and may be canceled in rainy or stormy conditions. To learn more about pediatric vaccinations (ages 5-11), we invite you to visit the [facility] webpage. https://www.link birds.org/pages/0570-Eaibo-Yizzailrepl-Ppyhevboio-Dpocb-Lnz stions.htmlTo learn more about the COVID-19 vaccine, we invite you to visit the CDC website for a list of frequently asked questions.https://www.cdc.gov/coronavirus/2019-ncov/vaccines/faq.html [facility] Patient Portal Access Instructions: Stay connected with your healthcare team and access your personal medical information anytime with the [facility] Patient Portal. Please follow the directions below to create your [facility] account: 1.Access the email account you provided upon registration to the hospital/physician office.2.Look for an invitation email from [facility].3.Open the email and access the invitation link: AcceptInvitation to [facility].4.Fill in the required orr to create your account. To access your account, visit dscout/[facility]. Click the blue button labeled Access Patient Portal and then log in with the username and password that you created in the steps above. You will be able to view your test results, lab results, a summary of your visits, upcoming appointments and more. There is also a convenient messaging option where you can send secure messages to your p santanavider. In addition, you will have the ability to download any documents or summaries to your computer and/or send the information securely to a physician. Remember that your healthcare information is confidential, so carefully consider who you will allowto register on the [facility] Patient Portal for access to your information. You can also access the [facility] Patient Portal on the [facility] frida. Simply click on Patient Portal and then log into your account. If you would like to receive a full copy of your medical records, please contact the [facility] Medical Records Department by calling [phone], Monday through Monday between 8 a.m. and [...] Call your local pharmacy or go to [email or web address]/[email or web address] to find one close to you.3.Make use of household items: Use cat litter or old coffee grounds to dispose medications if other options arenot available. Mix your drugs with these household products, seal them in an airtight container andthrow it into the garbage. Call [facility]: [phone] to be sure your drugs can be [...] COPY. Signatures Patient Education Materials Atrial Fibrillation, Njiy-tc-Xvnc Medication Leaflets Tikosyn My discharge plan and instructions have been reviewed and explained to me and I,SOCORRO KELLEY understand my current condition and have read and understand these discharge instructions. I have received awritten copy of the plan/instructions. If I have questions, I am aware that I should contact my doctor. Patient/Emergency Medicine Signature: Date/Time: Relationship to Patient: Witness Name/Signature: Date/Time: [id number] Discharge summary Date of Service 06/09/23 Discharge Diagnosis Other persistent atrial fibrillation (I48.19 - ICD-10-CM) Encounter for therapeutic drug level monitoring (Z51.81 - ICD-10-CM) Morbid (severe) obesity due to excess calories (E66.01 - ICD-10-CM) Hypertensive heart disease without heart failure (I11.9 - ICD-10-CM) Gastro-esophageal reflux disease without esophagitis (K21.9 - ICD-10-CM) [facility] (current) use of anticoagulants (Z79.01 - ICD-10-CM) Shortness of breath (R06.02 - ICD-10-CM) Additional Orders: Ordered: Communication Order (continuous),06/09/23 12:44:00 EST, ok to DC home after 5th dose of tikosyn this evening as long as QT is reviewed by computer operations analyst fellow, Constant order Ordered: Discharge,06/09/23 12:44:00 EST, [...] qDay, # 30 cap(s), 2 Refill(s), Pharmacy: [facility] #[id number], 176, cm, 06/07/23 13:36:00 EST, Height, kg, 06/07/23 13:36:00 EST, Dosing Weight Ordered: Tikosyn 250 mcg oral capsule,Dose : 250 mcg = 1 cap(s), Oral, BID, # 60 cap(s), 2 Refill(s), Pharmacy: [facility] #[id number], 176, cm, 06/07/23 13:36:00 EST, Height, kg, [...] When 07/07/2023 01:00 PM EST Where: [address] [facility] [place] [address]- [phone] Follow Up with ISADORA CORREA When Why: PLEASE CALL THIS OFFICE TO SCHEDULE A HOSPITAL FOLLOW UP APPOINTMENT Where: [address] [place] [address] [phone] Follow Up Appointments No qualifying data available. [...] on 06/09/2023 12:53 PM [facility] [id number] Discharge summary Date of Service 06/09/23 Discharge Diagnosis Other persistent atrial fibrillation (I48.19 - ICD-10-CM) Encounter for therapeutic drug level monitoring (Z51.81 - ICD-10-CM) Morbid (severe) obesity due to excess calories (E66.01 - ICD-10-CM) Hypertensive heart disease without heart failure (I11.9 - ICD-10-CM) Gastro-esophageal reflux disease without esophagitis (K21.9 - ICD-10-CM) [facility] (current) use of anticoagulants (Z79.01 - ICD-10-CM) Shortness of breath (R06.02 - ICD-10-CM) Additional Orders: Ordered: Communication Order (continuous),06/09/23 12:44:00 EST, ok to DC home after 5th dose of tikosyn this evening as long as QT is reviewed by computer operations analyst fellow, Constant order Ordered: Discharge,06/09/23 12:44:00 EST, [...] qDay, # 30 cap(s), 2 Refill(s), Pharmacy: [facility] #[id number], 176, cm, 06/07/23 13:36:00 EST, Height, kg, 06/07/23 13:36:00 EST, Dosing Weight Ordered: Tikosyn 250 mcg oral capsule,Dose : 250 mcg = 1 cap(s), Oral, BID, # 60 cap(s), 2 Refill(s), Pharmacy: [facility] #[id number], 176, cm, 06/07/23 13:36:00 EST, Height, kg, [...] When 07/07/2023 01:00 PM EST [facility] [address] [place] [address]- [phone] Follow Up with ISADORA CORREA When Why: PLEASE CALL THIS OFFICE TO SCHEDULE A HOSPITAL FOLLOW UP APPOINTMENT Where: [address] [facility] [place], [place] [id number]- [phone] Follow Up Appointments No qualifying data available. [...] on 06/09/2023 12:53 PM [facility] [id number] NoteSINUS RHYTHM LEFT AXIS DEVIATION LOW VOLTAGE, [...] on 06/08/2023 03:03 PM [facility] [id number] Cardiology Progress note Date of Service 06/08/23 [...] on 06/08/2023 03:03 PM [facility] HospitalCuhyqrfj08-27-0214 NoteSINUS RHYTHM LAD, CONSIDER LEFT ANTERIOR FASCICULAR [...] 107 ms, QT interval approximately 450 ms. LA interval 184 ms. Renal function, electrolytes pending. [...] on 06/07/2023 04:29 PM [facility] [id number] NoteSINUS RHYTHM LAD, CONSIDER LEFT ANTERIOR FASCICULAR [...] 107 ms, QT interval approximately 450 ms. LA interval 184 ms. Renal function, electrolytes pending. [...] (Oral) HR: 60(Monitored) RR: 18 BP: 126/70 SpO2:93% HT: 176 cm WT: 152.9 kg BMI: [...] on 06/07/2023 04:29 PM [facility] [id number] Evaluation + Plan noteExtracted from: Title:History and [...] Appointment Date:06/20/2023 02:30:00 PM Scheduled Provider:ISADORA CORREA Location:[facility] Appointment Type:PC OV Appointment Date:07/17/2023 03:15:00 PM Scheduled Provider:ZHOU ESPINOSA Location:[facility] Appointment Type:CV OV Future Scheduled [...] in vomit, stools (black or red color) 1182-9298 [employer]. [address] [place] [address], [place] [id number]. All rights reserved. This information is not [...] fainting Blood in your stool or urine 3045-5168 [employer]. [address] [place] [address], [place] [address]. All rights reserved. This information is not [...] will help ease pain. You may use scux-boa-snlsqip pain medicine such as acetaminophen or ibuprofen [...] suddenly or lasts more than an hour 8099-8209 [employer]. [address] [place] [address], [place] [address]. All rights reserved. This information is not intended as a substitute for professional medical care. Always follow yourhealthcare professional's instructions. Follow Up Care 05/05/2023 17:11:14 With:ISADORA CORREA Address: [address] [facility] [place] [address] [phone] Business (1) When:5-7 days Comments:Follow-up as needed if symptoms or not improving.Limit activity as tolerated.Ice/cold compresses topainful areas.Use Tylenol, Advil or Aleve for pain as needed.Use [place] as prescribed for severe pain as needed.Take 10 deep breaths on the incentive stridor every hour while awake for the next week as advised.Return to the ED if symptoms worsen. [facility] 12-08-2023 Note Discharge Instructions Thank you for allowing [facility] to assist you with your healthcare needs. [...] or Aleve for pain as needed. Use [place] as prescribed for severe pain as needed. Take 10 deep breaths on the incentive stridor every hour while awake for the next week as advised. Return to the ED if symptoms worsen. Where: [address] [facility] [place] [address]- [phone] Business (1) Allergies NKA Medications Please ask your primary doctor or pharmacist before taking any other medication not listed, including over the counter drugs, herbal medications, vitamins and or supplements as they may interact withyour home medications. What How Much When Why Instructions Last Dose New acetaminophen-hydrocodone ([place] 325- 5 mg oral tablet) 1 tab(s) [...] cancer screening As directed by provider at [facility]. Unchanged rivaroxaban (Xarelto 20 mg oral [...] (a SEET a MIN oh fen and shelley VITAL done) Lortab Elixir, Verdrocet What is [...] a rash that spreads and causes blistering andpeeling. Call your doctor at once if you [...] may report side effects to FDA at 0-387-UFO-8269. What other drugs will affect acetaminophen and [...] affect acetaminophen and hydrocodone, including prescription and fknt-huv-kiydjnw medicines, vitamins, and herbal products. Not all [...] to ensure that the information provided by TDX. ('Multum') is accurate, up-to-date, and complete, but no guarantee is made to that effect. Drug information contained herein may be time sensitive. Seeo information has been compiled for use by healthcare practitioners and consumers in the [place] and therefore Seeo does not warrant that uses outside of the [place] are appropriate, unless specifically indicated otherwise. [employer] drug information does not endorse drugs, diagnose patients or recommend therapy. [employer] drug information isan informational resource designed to [...] effective or appropriate for any given patient. Seeo does not assume any responsibility for any aspect of healthcare administered with the aid of information Seeo provides. The information contained herein is not intended to cover all possible uses, directions, precautions, warnings, drug interactions, allergic reactions, or adverse effects. If you have questions about the drugs you are taking, check with your doctor, nurse or pharmacist. Copyright 1423-4816 TDX. Version: 19.01. Revision Date: 01/16/2023. Education Materials Mechanical Fall [...] in vomit, stools (black or red color) 8983-6233 [employer]. [address] [place] [address]. All rights reserved. This information is not [...] fainting Blood in your stool or urine 8352-0815 [employer]. [address] [place], [place] [address]. All rights reserved. This information is not [...] will help ease pain. You may use dljc-vdr-tepeqvu pain medicine such as acetaminophen or ibuprofen [...] suddenly or lasts more than an hour 6955-3462 [employer]. [address] [place] [address]. All rights reserved. This information is not intended as a substitute for professional medical care. Always follow yourhealthcare professional's instructions. Additional Information VACCINATE! IT SAVES LIVES! Members of the community who have not yet received the COVID-19 vaccine and would like to receive it can visit one of [facility] vaccine clinics. There are many vaccine clinic locations within the [facility]. For locations and available times, please visit www.[email or web address].[place].gov/. It is important to note that some COVID mobile vaccine clinics are held outdoors and may be canceled in rainy or stormy conditions. To learn more about pediatric vaccinations (ages 5-11), we invite you to visit the [facility] webpage. https://www.[facility].org/pages/5490-Qflae-Qhwiklzgkto-Wdnkgwcfzd-Ppytw-Xni stions.htmlTo learn more about the COVID-19 vaccine, we invite you to visit the CDC website for a list of frequently asked questions. https://www.cdc.gov/coronavirus/2019-ncov/vaccines/faq.html [facility] Patient Portal Access Instructions: Stay connected with your healthcare team and access your personal medical information anytime with the [facility] Patient Portal. If you would like a full copy of your medical records please contact the [facility] Medical Records Department Monday through Monday between 8a.m. and 4:30p.m. Please follow the directions below to access the portal: 1.Access the email account you provided upon registration to the [facility].2.Look for an invitation email from [facility].3.Open the email and access the invitation link: Accept Invitation to [facility]4.Fill in the required orr to create your account. Sign into [email or web address] with your username and password that you [...] you will allow to register on the [facility] Patient Portal for access to your information. You can also access the [facility] Patient Portal on the [employer] frida. Simply click on Health Records under [employer] and then click on the [facility] logo. [...] Call your local pharmacy or go to http://bit.PollitoIngles/1U0Av9j to find one close to you.3.Make use of household items: Use cat litter or old coffee grounds to dispose medications if other options arenot available. Mix your drugs with these household products, seal them in an airtight container andthrow it into the garbage. Call [facility]: [phone] to be sure your drugs can be [...] aware that I should contact my doctor. Patient/Emergency Medicine Signature: Date/Time: Relationship to Patient: Witness Name/Signature: Date/Time: [facility]12-08-2023 Note ORIGINAL EXAMINATION: 2 XRAY VIEWS OF [...] Sign Date: 05/05/2023 9:08:30 PM Ordering Provider: [facility]12-08-2023 Note ORIGINAL EXAMINATION: ONE XRAY VIEW [...] Sign Date: 05/05/2023 9:17:04 PM Ordering Provider: [facility]11-06-2023 Note * Exam Date Time Procedure Performing Provider Status 04/03/23 9:43 AM Echocardiogram, Adult (AOH) Auth (Verified) [facility] 07-28-2023 Hospital Discharge instructions Patient Education 12/23/2022 [...] 05/15/2006 Document Revised: 05/01/2013 Document Reviewed: 05/16/2014 [facility] [place] Patient Information 2015 [employer]. This information is not intended to replace [...] before eating solid foods. General instructions Take yfbz-hvq-bgdepgr and prescription medicines only as told by [...] 09/04/2016 Document Revised: 08/13/2018 Document Reviewed: 09/04/2016 [employer] Patient Education 2020 [employer]. Follow Up Care 12/07/2022 09:52:07 With:ZHOU ESPINOSA Address: [address] [place] [address] [address] [facility] [place] [phone] When: Unknown Comments:Follow-up as scheduled [facility] 07-28-2023 Note Discharge Instructions Thank you for allowing [facility] to assist you with your healthcare needs. The following is importantdischarge information regarding your hospital visit. Your Care Team ISADORA CORREA Your Diagnosis AF (atrial fibrillation) What to do next Scheduled Follow-Up Appointments Appointment Type When With Where Contact InformationPC OV 02/07/2023 02:30 PM EDT ISADORA CORREA [facility] Follow Up Appointments Follow Up with ZHOU ESPINOSA When Why: Follow-up as scheduled Where: [address] [facility] [place] [address] [phone] Allergies NKA Medications Please ask your primary doctor or pharmacist before taking any other medication not listed, including over the counter drugs, herbal medications, vitamins and or supplements as they may interact withyour home medications. What How Much When Instructions Last Dose New losartan (losartan 100 mg oral tablet) 1 tab(s) by mouth Once a day Refills: 6 Pickup at [facility] #[id number] Changed metoprolol (Toprol-XL 50 mg oral tablet, extended release) 1 tab(s) by mouth Two (2) times a day Pickup at [facility] #08946 Unchanged allopurinol (allopurinol 100 mg oral tablet) [...] Duration: 14 Days Pharmacy Information [facility] #[id number]: [address], [place] [phone] What How Much When Comments Stop Taking [...] 05/15/2006 Document Revised: 05/01/2013 Document Reviewed: 05/16/2014 [facility] [place] Patient Information 2015 [employer]. This information is not intended to replace [...] before eating solid foods. General instructions Take dzmu-kjk-hvuzmls and prescription medicines only as told by [...] 09/04/2016 Document Revised: 08/13/2018 Document Reviewed: 09/04/2016 [employer] Patient Education 2020 [employer] Additional Information VACCINATE! IT SAVES LIVES! Members of the community who have not yet received the COVID-19 vaccine and would like to receive it can visit one of [facility] vaccine clinics. There are many vaccine clinic locations within the [facility]. For locations and available times, please visit https://[email or web address]/. It is important to note that some COVID mobile vaccine clinics are held outdoors and may be canceled in rainy or stormy conditions. To learn more about pediatric vaccinations (ages 5-11), we invite you to visit the [facility] webpage. https://www.[facility].org/pages/7027-Ygugc-Ttnfqdbexca-Ynordctguj-Biapw-Avq stions.htmlTo learn more about the COVID-19 vaccine, we invite you to visit the CDC website for a list of frequently asked questions.https://www.cdc.gov/coronavirus/2019-ncov/vaccines/faq.html [facility] Patient Portal Access Instructions: Stay connected with your healthcare team and access your personal medical information anytime with the [facility] Patient Portal. Please follow the directions below to create your [facility] account: 1.Access the email account you provided upon registration to the hospital/physician office.2.Look for an invitation email from [facility].3.Open the email and access the invitation link: AcceptInvitation to [facility].4.Fill in the required orr to create your account. To access your account, visit [email or web address]/[facility]. Click the blue button labeled Access Patient Portal and then log in with the username and password that you created in the steps above. You will be able to view your test results, lab results, a summary of your visits, upcoming appointments and more. There is also a convenient messaging option where you can send secure messages to your p enStagevider. In addition, you will have the ability to download any documents or summaries to your computer and/or send the information securely to a physician. Remember that your healthcare information is confidential, so carefully consider who you will allowto register on the [facility] Patient Portal for access to your information. You can also access the [facility] Patient Portal on the [facility] frida. Simply click on Patient Portal and then log into your account. If you would like to receive a full copy of your medical records, please contact the [facility] Medical Records Department by calling [phone], Monday through Monday between 8 a.m. and [...] Call your local pharmacy or go to [email or web address]://[email or web address] Technologies.PollitoIngles/[email or web address] to find one close to you.3.Make use of household items: Use cat litter or old coffee grounds to dispose medications if other options arenot available. Mix your drugs with these household products, seal them in an airtight container andthrow it into the garbage. Call [facility]: [phone] to be sure your drugs can be [...] aware that I should contact my doctor. Patient/Emergency Medicine Signature: Date/Time: Relationship to Patient: Witness Name/Signature: Date/Time: [facility]07-28-2023 Anesthesiology Consult note Patient: SOCORRO KELLEY Age: 52 years Sex: Male : 1970 Associated Diagnoses: None Author: BRAULIO WRIGHT Assessment Postanesthesia assessment Vitals: Vital signs from [...] by BRAULIO WRIGHT on 12/23/2022 07:[address] [facility]07-28-2023 Anesthesiology Consult note Patient: SOCORRO KELLEY Age: [...] Problem list: Medical Anxiety / SNOMED CT 83840099 / Confirmed Atopic dermatitis / SNOMED CT 36744205 / Confirmed BMI 45.0-49.9, adult / SNOMED CT 1866353686 / Confirmed Diabetes mellitus / SNOMED CT 247155122 / Confirmed Hypertension / SNOMED CT 6170875656 / Confirmed Insomnia / SNOMED CT 396951104 / Confirmed Morbid obesity / SNOMED CT 870697740 / Confirmed Chewing tobacco nicotine dependence / SNOMED CT 33154978 / Confirmed Obstructive sleep apnea / SNOMED CT 585951625 / Confirmed Screening for ischemic heart disease / SNOMED CT 659543159 / Confirmed Persistent atrial fibrillation / SNOMED CT 5969192256 / Confirmed Prediabetes / SNOMED CT 7256328748 / Confirmed, Active Problems (16) Anxiety Atopic [...] History: History is unknown. Procedure history: Elbow ([id number]). 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 Physical Examination Vital Signs 12/23/2022 6:34 EDT Temperature Temporal Artery 35.3 DegC Peripheral Pulse Rate 85 bpm Respiratory Rate 20 br/min Systolic Blood Pressure Non-Invasive 103 mmHg Diastolic Blood Pressure Non-Invasive 76 mmHg Vital Signs(last 24 hrs) Last Charted Resp Rate 20 br/min (DEC 23 06:34) WHC432 mmHg (DEC 23 06:34) DBP76 mmHg (DEC 23 06:34) Measurements from flowsheet : Measurements 12/23/2022 6:37 EDT Height 175.3 cm [place] Body Weight 70.74 kg 12/23/2022 6:34 EDT Height 175.3 cm Admission Weight 144 kg [place] Body Weight 70.74 kg Admission Body Mass [...] Surgeon SN - CAt - Role Performed Rope Silica Machine Operator 1 SN - CAt - Role Performed FREIGHT BRAKEMAN 12/23/2022 6:49 EDT Wrist Left 12/23/2022 20 [...] Person #1 We May Share YAW OSPINA [phone] Designated Person #1 Relationship Sibling Height 175.3 cm [place] Body Weight 70.74 kg Status N/A Sensory [...] evident Teaching Method Explanation Preferred Spoken Language Gibraltarian Preferred Written Language Gibraltarian Information Given by Patient Patient's Current Physicians Patient's Current Physicians Discharge To, Anticipated Home independently Prev Test Positive/Diagnosis w/COVID-19 No Current Quarantine/Isolated any Illness No Any Contact with Sick Animals/Birds No Traveled Anywhere in Last 30 Days No N/A Personal Devices, Patient Valuables None Admission Note-Nursing Procedure/Therapy Intake 12/23/2022 6:34 EDT Height 175.3 cm Admission Weight 144 kg [place] Body Weight 70.74 kg Admission Body Mass [...] Ordered (In Progress) . Assessment and Plan [place] Society of Anesthesiologists (ASA) physical status classification: Class III. Anesthetic Preoperative Plan Anesthetic technique: MAC. Informed consent: signed by patient. Digitally Signed by BRAULIO WRIGHT on 12/23/2022 07:[address] [facility]06-01-2023 Hospital Discharge instructions Patient Education 10/27/2022 06:39:29 [...] Swelling, pain or redness in one leg 0438-4118 [employer]. [address] [place] [address]. All rights reserved. This information is not intended as a substitute for professional medical care. Always follow [facility] professional's instructions. 10/27/2022 06:39:29 Hypokalemia Hypokalemia Hypokalemia [...] very fast heart rate Loss of consciousness 5865-2083 [employer]. [address] [place] [address]. All rights reserved. This information is not intended as a substitute for professional medical care. Always follow yourhealthcare professional's instructions. Follow Up Care 10/27/2022 05:02:35 With:ISADORA CORREA Address: [address] [facility] [place] [address]- [phone] Business (1) When:2-4 days Comments:Follow close with your doctor, continue medications, return if any worsening or concerning symptoms. [facility] 06-01-2023 Note Discharge Instructions Thank you for allowing [facility] to assist you with your healthcare needs. [...] concerning symptoms. Where: [address] [facility] [place] [address]- [phone] Business (1) Allergies NKA Medications Please ask [...] Swelling, pain or redness in one leg 9404-8989 [employer]. [address] [place] [address], [place] [address]. All rights reserved. This information is not [...] very fast heart rate Loss of consciousness 8184-3937 [employer]. [address] [place], [place] [address]. All rights reserved. This information is not intended as a substitute for professional medical care. Always follow yourhealthcare professional's instructions. Additional Information VACCINATE! IT SAVES LIVES! Members of the community who have not yet received the COVID-19 vaccine and would like to receive it can visit one of [facility] vaccine clinics. There are many vaccine clinic locations within the [facility]. For locations and available times, please visit [email or web address]/. It is important to note that some COVID mobile vaccine clinics are held outdoors and may be canceled in rainy or stormy conditions. To learn more about pediatric vaccinations (ages 5-11), we invite you to visit the [facility] webpage. [email or web address]/[email or web address] [email or web address] learn more about the COVID-19 vaccine, we invite you to visit the CDC website for a list of frequently asked questions. https://www.cdc.gov/coronavirus/2019-ncov/vaccines/faq.html [facility] Patient Portal Access Instructions: Stay connected with your healthcare team and access your personal medical information anytime with the [facility] Patient Portal. If you would like a full copy of your medical records please contact the [facility] Medical Records Department Monday through Monday between 8a.m. and 4:30p.m. Please follow the directions below to access the portal: 1.Access the email account you provided upon registration to the [facility].2.Look for an invitation email from [facility].3.Open the email and access the invitation link: Accept Invitation to [facility]4.Fill in the required orr to create your account. Sign into [email or web address] with your username and password that you [...] you will allow to register on the [facility] Patient Portal for access to your information. You can also access the [facility] Patient Portal on the Simplee. Simply click on Health Records under [employer] and then click on the [employer] logo. HOW TO SAFELY DISPOSE OF PRESCRIPTION [...] Call your local pharmacy or go to http://bit.ly/4B6Tv8c to find one close to you.3.Make use of household items: Use cat litter or old coffee grounds to dispose medications if other options arenot available. Mix your drugs with these household products, seal them in an airtight container andthrow it into the garbage. Call [facility]: [phone] to be sure your drugs can be [...] aware that I should contact my doctor. Patient/Emergency Medicine Signature: Date/Time: Relationship to Patient: Witness Name/Signature: Date/Time: [facility]06-01-2023 Note ORIGINAL EXAMINATION: ONE XRAY VIEW OF [...] 10/27/2022 6:14:45 AM Ordering Provider: OLLIE BROOKE [facility]06-01-2023 Note ORIGINAL EXAMINATION: ONE XRAY VIEW OF [...] Date: 10/27/2022 6:14:45 AM Ordering Provider: OLLIE [facility]05-30-2023 Hospital Discharge instructions Patient Education 10/25/2022 01:25:48 [...] your body to your neck and face. 4918-8666 [employer]. [address] [place] [address]. All rights reserved. This information is not intended as a substitute for professional medical care. Always follow yourhealthcare professional's instructions. 10/25/2022 01:25:36 Atrial Fibrillation Atrial [...] vision Extreme drowsiness, confusion, dizziness, or fainting 8090-4369 [employer]. [address] [place] [address], [place] [address]. All rights reserved. This information is not [...] Swelling, pain or redness in one leg 2325-3733 [employer]. [address] [place] [address]. All rights reserved. This information is not intended as a substitute for professional medical care. Always follow [facility] hospital[facility] professional's instructions. 10/25/2022 01:25:22 Heart Failure, Congestive [...] veins, fluid leaks out into the tissues. [place] then causes that fluid to move to [...] away Feeling much more tired than usual 7420-1601 [employer]. [address] [place] [address]. All rights reserved. This information is not intended as a substitute for professional medical care. Always follow yourhealthcare professional's instructions. Follow Up Care 10/24/2022 23:09:33 With:Call Physician Referral Address:Unknown When:2-4 days Comments:Call for referral to establish a primary care doctor you can see on a regular basis. With:SADE STRAUSS Address: [address] [place] [address] [address] [facility] [place] [address]- [phone] Business (1) When:2-4 days Comments:Schedule an appointment to establish a log snaker you can see on a regular basis.Double your doseof Lasix from 20 mg once a day to 20 mg twice a day.Continue all other routine medications including the ones you were recently prescribed from [facility].Use potassium supplement and sleep aid (trazodone) as prescribed.Return to the ED if symptoms worsen. [facility] 05-30-2023 Note Discharge Instructions Thank you for allowing [facility] to assist you with your healthcare needs. [...] Why: Schedule an appointment to establish a log snaker you can see on a regular basis. Double your dose of Lasix from 20 mg once a day to 20 mg twice a day. Continue all other routine medications including the ones you were recently prescribed from [facility]. Use potassium supplement and sleep aid (trazodone) as prescribed. Return to the ED if symptoms worsen. Where: [address] [facility] [address] [facility] [place] [address]- [phone] Business (1) Allergies NKA Medications Please ask [...] potassium chloride (oral/injection) (ann marie TASS ee um) Rohit Potassium 99, Klor-Con, K-Tab, Potassium Chloride [...] may report side effects to FDA at 2-364-WAT-6288. What other drugs will affect potassium chloride? Tell your doctor about all your other medicines, especially: medicine to prevent organ transplant rejection; a diuretic or 'water pill'; or heart or blood pressure medication. This list is not complete. Other drugs may affect potassium chloride, including prescription and dnkl-tbo-cemhvji medicines, vitamins, and herbal products. Not all [...] to ensure that the information provided by TDX. ('Multum') is accurate, up-to-date, and complete, but no guarantee is made to that effect. Drug information contained herein may be time sensitive. Seeo information has been compiled for use by healthcare practitioners and consumers in the [place] and therefore Seeo does not warrant that uses outside of the [place] are appropriate, unless specifically indicated otherwise. [employer] drug information does not endorse drugs, diagnose patients or recommend therapy. [employer] drug information isan informational resource designed to [...] effective or appropriate for any given patient. Seeo does not assume any responsibility for any aspect of healthcare administered with the aid of information Seeo provides. The information contained herein is not intended to cover all possible uses, directions, precautions, warnings, drug interactions, allergic reactions, or adverse effects. If you have questions about the drugs you are taking, check with your doctor, nurse or pharmacist. Copyright 5176-2463 [employer]. Version: 14.. Revision Date: 10/24/2019. trazodone (TRAZ oh done) [...] may report side effects to FDA at 2-998-ZTO-3486. What other drugs will affect trazodone? Using trazodone with other drugs that make you drowsy can worsen this effect. Ask your doctor before using opioid medication, a sleeping pill, a muscle relaxer, or medicine for anxiety or seizures. Tell your doctor about all your current medicines. Many drugs can affect trazodone, especially: any other antidepressants; phenytoin; Elizabeth's wort; tramadol; a diuretic or 'water pill'; medicine to treat anxiety, mood disorders, or mental illness such as schizophrenia; a blood thinner--warfarin, Coumadin, Jantoven; or migraine headache medicine--sumatriptan, Imitrex, Maxalt, Treximet, and others. This list is not complete and many other drugs may affect trazodone. This includes prescription mzlumhc-eqk-ddksagp medicines, vitamins, and herbal products. Not all [...] to ensure that the information provided by [employer]X. ('Multum') is accurate, up-to-date, and complete, but no guarantee is made to that effect. Drug information contained herein may be time sensitive. Seeo information has been compiled for use by healthcare practitioners and consumers in the [place] and therefore Seeo does not warrant that uses outside of the [place] are appropriate, unless specifically indicated otherwise. [employer] drug information does not endorse drugs, diagnose patients or recommend therapy. [employer] drug information isan informational resource designed to [...] effective or appropriate for any given patient. Seeo does not assume any responsibility for any aspect of healthcare administered with the aid of information Seeo provides. The information contained herein is not intended to cover all possible uses, directions, precautions, warnings, drug interactions, allergic reactions, or adverse effects. If you have questions about the drugs you are taking, check with your doctor, nurse or pharmacist. Copyright 1828-6320 [employer]. Version: 10.04. Revision Date: 11/09/2020. Education Materials [...] your body to your neck and face. 5178-0167 [employer]. [address] [place] [address]. All rights reserved. This information is not [...] vision Extreme drowsiness, confusion, dizziness, or fainting 0724-4004 [employer]. [address] [place] [address]. All rights reserved. This information is not [...] Swelling, pain or redness in one leg 1744-7114 [employer]. [address] [place] [address]. All rights reserved. This information is not [...] veins, fluid leaks out into the tissues. [place] then causes that fluid to move to [...] away Feeling much more tired than usual 3396-5421 [employer]. [address] [place] [address]. All rights reserved. This information is not intended as a substitute for professional medical care. Always follow yourhealthcare professional's instructions. Additional Information VACCINATE! IT SAVES LIVES! Members of the community who have not yet received the COVID-19 vaccine and would like to receive it can visit one of [facility] vaccine clinics. There are many vaccine clinic locations within the [facility]. For locations and available times, please visit www.[email or web address]/. It is important to note that some COVID mobile vaccine clinics are held outdoors and may be canceled in rainy or stormy conditions. To learn more about pediatric vaccinations (ages 5-11), we invite you to visit the [facility] webpage. https://[email or web address]/pages/[email or web address]-Wbpjt-Ljmnhgrltzj-Cjucljzyna-Lueeh-[email or web address] stions.htmlTo learn more about the COVID-19 vaccine, we invite you to visit the CDC website for a list of frequently asked questions. https://www.cdc.gov/coronavirus/2019-ncov/vaccines/faq.html [facility] Patient Portal Access Instructions: Stay connected with your healthcare team and access your personal medical information anytime with the [facility] Patient Portal. If you would like a full copy of your medical records please contact the [facility] Medical Records Department Monday through Monday between 8a.m. and 4:30p.m. Please follow the directions below to access the portal: 1.Access the email account you provided upon registration to the hospital.2.Look for an invitation email from [facility].3.Open the email and access the invitation link: Accept Invitation to [facility]4.Fill in the required orr to create your account. Sign into [email or web address] with your username and password that you [...] you will allow to register on the [facility] Patient Portal for access to your information. You can also access the [facility] Patient Portal on the Huckletree frida. Simply click on Health Records under [employer] and then click on the [facility] logo. [...] Call your local pharmacy or go to http://bit.PollitoIngles/[email or web address] to find one close to you.3.Make use of household items: Use cat litter or old coffee grounds to dispose medications if other options arenot available. Mix your drugs with these household products, seal them in an airtight container andthrow it into the garbage. Call [facility]: [phone] to be sure your drugs can be [...] aware that I should contact my doctor. Patient/Emergency Medicine Signature: Date/Time: Relationship to Patient: Witness Name/Signature: Date/Time: [facility]05-30-2023 Note ORIGINAL EXAMINATION: CTA OF THE CHEST [...] aortic dissection. Lungs/pleura: Small bilateral pleural effusions gas pipe layer dependently. There is more fluid on [...] Sign Date: 10/25/2022 1:09:48 AM Ordering Provider: [facility]05-30-2023 Note ORIGINAL EXAMINATION: CTA OF THE CHEST [...] aortic dissection. Lungs/pleura: Small bilateral pleural effusions gas pipe layer dependently. There is more fluid on [...] Sign Date: 10/25/2022 1:09:48 AM Ordering Provider: [facility]05-29-2023 Note ORIGINAL EXAMINATION: ONE XRAY VIEW [...] Sign Date: 10/24/2022 11:56:09 PM Ordering Provider: [facility]05-29-2023 Note ORIGINAL EXAMINATION: ONE XRAY VIEW OF [...] Sign Date: 10/24/2022 11:56:09 PM Ordering Provider: [facility]05-28-[address] Clemens [facility] October 23, 2022 10:40am Note Date/Time October 23, 2022 6:48a m [facility] Medical Records Department [address] [place] [address] Emergency Department Summary 10/23/22 MR#: [id number] Acct: [id number] Name: SOCORRO KELLEY Jr. Rep #:[id number] : 1970 52 From: Jameel Brown DO [...] months ago or so. He was puton Eliseto, however he was not put on anything for rate control. He notes that he does have lower extremity edema which is worse since that I did increase his hydrochlorothiazide. He states he sleeps on 3 pillows which is his baseline. He states he cannot lay flat because he gets short of breath. Patient states his log snaker is a Dr. Barr out of [facility]. [facility] Medical History (Updated 10/23/22 @ 06:09 [...] IV and his heart rate is now [id number]. CBC shows no leukocytosis. Hemoglobin macular stable. [...] % (Auto) 67.9 Lymph % (Auto) 19.0 [place] % (Auto) 9.6 Eos % (Auto) 2.4 [...] your Primary Care Provider. Call [facility] ([phone]) or report to the closest Emergency Room. Call 911 if necessary. 10/23/22 0727 <Electronically signed by Jameel Brown DO> Cosigner Signature (if applicable): CC: ZACARIAS COHN ~ Signed ADDENDUM by Dr. Jose A Clemens MD on 10/23/22 at 0759 Patient care was transferred to [place] at 0710. Patient presented because of palpitations discomfort right side of his chest with shortness of breath. Patient does have history of congestive heart failure and atrial fibrillation. He has relocated from [place]. He does not have a local log snaker. Patient has not taken his Xarelto for [...] (if applicable): cc: ZACARIAS COHN ~* Signed [facility] Work Phone: [phone]) 215-749502-17-2023 Hospital Discharge instructions Patient Education 07/15/2022 21:17:24 [...] temperature. Use toothpaste made for sensitive teeth. [place] gently up and down instead of sideways. Brushing sideways can wear away root surfaces if they are exposed. If your tooth is chipped or cracked, or if there is a large open cavity, put oil of cloves directlyon the tooth to relieve pain. You can buy oil of cloves at drugstores. Some pharmacies carry an quaw-hsx-pwlbpwh toothache kit. This contains a paste that you can put on the exposed tooth to make it less sensitive. Put a cold pack on your jaw over the sore area to help reduce pain. You may use edjp-oqr-ekqmqht medicine to ease pain, unless your doctor [...] healthcare provider Pus drains from the tooth 3260-8167 [employer]. [address] [place] [address]. All rights reserved. This information is not intended as a substitute for professional medical care. Always follow yourhealthcare professional's instructions. Follow Up Care 07/15/2022 20:40:26 With:Dental Referral List Address: When:2-[address] [facility] 02-17-2023 Note Discharge Instructions Thank you for allowing [facility] to assist you with your healthcare needs. [...] When Why Instructions Last Dose New acetaminophen-hydrocodone ([place] 325- 5 mg oral tablet) 1 tab(s) [...] temperature. Use toothpaste made for sensitive teeth. [place] gently up and down instead of sideways. Brushing sideways can wear away root surfaces if they are exposed. If your tooth is chipped or cracked, or if there is a large open cavity, put oil of cloves directlyon the tooth to relieve pain. You can buy oil of cloves at [employer]. Some pharmacies carry an owcp-wol-mewqfhg toothache kit. This contains a paste that you can put on the exposed tooth to make it less sensitive. Put a cold pack on your jaw over the sore area to help reduce pain. You may use vcrt-dvo-yrchlnv medicine to ease pain, unless your doctor [...] healthcare provider Pus drains from the tooth 9130-4443 [employer]. [address] [place] [address], [place] [address]. All rights reserved. This information is not intended as a substitute for professional medical care. Always follow yourhealthcare professional's instructions. Additional Information VACCINATE! IT SAVES LIVES! Members of the community who have not yet received the COVID-19 vaccine and would like to receive it can visit one of [facility] vaccine clinics. There are many vaccine clinic locations within the [facility]. For locations and available times, please visit www.[email or web address]/. It is important to note that some COVID mobile vaccine clinics are held outdoors and may be canceled in rainy or stormy conditions. To learn more about pediatric vaccinations (ages 5-11), we invite you to visit the [facility] webpage. [email or web address]/[email or web address] [email or web address] learn more about the COVID-19 vaccine, we invite you to visit the CDC website for a list of frequently asked questions. https://www.cdc.gov/coronavirus/2019-ncov/vaccines/faq.html [facility] Patient Portal Access Instructions: Stay connected with your healthcare team and access your personal medical information anytime with the [facility] Patient Portal. If you would like a full copy of your medical records please contact the [facility] Medical Records Department Monday through Monday between 8a.m. and 4:30p.m. Please follow the directions below to access the portal: 1.Access the email account you provided upon registration to the [facility].2.Look for an invitation email from [facility].3.Open the email and access the invitation link: Accept Invitation to [facility]4.Fill in the required orr to create your account. Sign into [email or web address] with your username and password that you [...] you will allow to register on the [facility] Patient Portal for access to your information. You can also access the [facility] Patient Portal on the Simplee. Simply click on Health Records under [employer] and then click on the [facility] logo. [...] Call your local pharmacy or go to http://[email or web address].PollitoIngles/5P4Oz8m to find one close to you.3.Make use of household items: Use cat litter or old coffee grounds to dispose medications if other options arenot available. Mix your drugs with these household products, seal them in an airtight container andthrow it into the garbage. Call [facility]: [phone] to be sure your drugs can be [...] aware that I should contact my doctor. Patient/Emergency Medicine Signature: Date/Time: Relationship to Patient: Witness Name/Signature: Date/Time: [facility]02-13-2023 Hospital Discharge instructions Patient Education 07/11/2022 09:00:28 [...] alternate ice and heat. You may use ikst-cjr-dmrncuz pain medicine to control pain, unless another [...] hand becomes cold, blue, numb, or tingly [phone] [employer]. [address] [place] [address]. All rights reserved. This information is not intended as a substitute for professional medical care. Always follow yourhealthcare professional's instructions. Follow Up Care 07/11/2022 08:20:34 With:DO MELISSA COHN DO Address: [address] [place] [address] [address] [place] [address] When:3-7 days With:Go to emergency room if symptoms worsen Address:Unknown When:2-[address] [facility] 02-13-2023 Note Discharge Instructions Thank you for allowing [facility] to assist you with your healthcare needs. [...] COHN DO When Within 3-7 days Where: [facility] [address] [place] [address] Follow Up with Go to emergency [...] alternate ice and heat. You may use etxf-pzg-gbumfis pain medicine to control pain, unless another [...] hand becomes cold, blue, numb, or tingly [phone] [employer]. [address] [place] [address]. All rights reserved. This information is not intended as a substitute for professional medical care. Always follow yourhealthcare professional's instructions. Additional Information VACCINATE! IT SAVES LIVES! Members of the community who have not yet received the COVID-19 vaccine and would like to receive it can visit one of [facility] vaccine clinics. There are many vaccine clinic locations within the [facility]. For locations and available times, please visit [email or web address]. It is important to note that some COVID mobile vaccine clinics are held outdoors and may be canceled in rainy orstormy conditions. To learn more about pediatric vaccinations (ages 5-11), we invite you to visit the [facility] webpage. [email or web address]://[email or web address]/pages/[email or web address] [email or web address].htmlTo learn more about the COVID-19 vaccine, we invite you to visit the [facility] website for a list of frequently asked questions. [email or web address]/assets/Sfqhfrjn-lqo-Oxkrofox/fucpk-Gokkhbu-Xcyrdhtdje _[email or web address]-Questions.pdf [facility] Patient Portal Access Instructions: Stay connected with your healthcare team and access your personal medical information anytime with the [facility] Patient Portal. If you would like a full copy of your medical records please contact the [facility] Medical Records Department Monday through Monday between 8a.m. and 4:30p.m. Please follow the directions below to access the portal: 1.Access the email account you provided upon registration to the [facility].2.Look for an invitation email from [facility].3.Open the email and access the invitation link: Accept Invitation to [facility]4.Fill in the required orr to create your account. Sign into [email or web address] with your username and password that you [...] you will allow to register on the [facility] Patient Portal for access to your information. You can also access the [facility] Patient Portal on the Huckletree frida. Simply click on Health Records under [employer] and then click on the [facility] logo. HOW TO SAFELY DISPOSE OF PRESCRIPTION [...] Call your local pharmacy or go to http://bit.PollitoIngles/1I1Dz8i to find one close to you.3.Make use of household items: Use cat litter or old coffee grounds to dispose medications if other options arenot available. Mix your drugs with these household products, seal them in an airtight container andthrow it into the garbage. Call [facility]: [phone] to be sure your drugs can be [...] aware that I should contact my doctor. Patient/Emergency Medicine Signature: Date/Time: Relationship to Patient: Witness Name/Signature: Date/Time: [facility]02-13-2023 Note ORIGINAL EXAMINATION: THREE XRAY VIEWS OF [...] 07/11/2022 8:51:46 AM Ordering Provider: MALORIE PEGUERO [place] [address]-13-2023 Note ORIGINAL EXAMINATION: THREE XRAY VIEWS OF [...] Sign Date: 07/11/2022 8:51:46 AM Ordering Provider: [facility]09-12-[facility]22 Note [address] [place] [id number] PERSONAL HISTORY AND PHYSICAL : Signed Name: SOCORRO KELLEY JR MRUN: [id number] : 1970 Loc: ENDO Age / Sex: 51/ M Adm Status: PRE [facility] Adm Date:02/15/22 Room/Bed: A 51-year-old patient of [facility] in [place], who comes to discuss endoscopy. He has [...] for the appropriate day. Dictated By: Melissa Ayala MD 02/24/22 0847 Dictated Date/Time: 02/07/22 1659 Transcribed Date/Time: 02/07/22 1716[facility] Anesthesiology Consult note* CIRILO MCDONOUGH DO: PERFORM, SIGN, VERIFY Event Display: Anesthesiology Consultation Authored Date: [id number] Patient: SCOORRO KELLEY Age: 53 years Sex: Male : [...] device, # 1 EA, 0 Refill(s), Pharmacy: [facility], 177.8, cm, 11/28/23 13:54:00 EDT, Height, 151.4, kg, 11/28/23 13:54:00 EDT, Dosin... Blood Glucose Test Strips: See Instructions, 1 bottle of 100 Test once daily, # 1 EA, 11 Refill(s), Pharmacy: [facility], 177.8, cm, 11/28/23 13:54:00 EDT, Height, 151.4, kg, 11/28/23 13:54:00 EDT, Dosing Weight FLUoxetine 20 mg oral capsule: Dose : 20 mg = 1 cap(s), Oral, qDay, # 30 cap(s), 3 Refill(s), Pharmacy: [facility], 177.8, cm, 11/28/23 13:54:00 EDT, Height, kg, 11/28/23 13:54:00 EDT,Dosing Weight Lancets: See Instructions, qs 1 month supply Test once daily, # 1 EA, 11 Refill(s), Pharmacy: [facility], 177.8, cm, 11/28/23 13:54:00 EDT, Height, 151.4, kg, 11/28/23 13:54:00 EDT, Dosing Weight Lasix 40 mg oral tablet: See Instructions, 1 tab in AM and 0.5 tab in PM, # 135 tab(s), 3 Refill(s), Pharmacy: [facility], 177.8, cm, 11/28/23 13:54:00 EDT, Height, kg, 11/28/23 13:54:00 EDT, Dosing Weight Symbicort 80 mcg-4.5 mcg/inh Inhaler: Dose = 2 puff(s), Inhalation, BID, # 10.2 gram(s), 3 Refill(s), Pharmacy: [facility], 177.8, cm, 11/28/23 13:54:00 EDT, Height, kg, 11/28/23 13:54:00 EDT, Dosing Weight Tikosyn 250 mcg oral capsule: Dose : 250 mcg = 1 cap(s), Oral, BID, # 180 cap(s), 3 Refill(s), Pharmacy: [facility]/pharmacy #[id number], 177.8, cm, 11/28/23 13:54:00 EDT, Height, kg, 11/28/23 13:54:00 EDT, Dosing Weight Toprol-XL 100 mg oral tablet, extended release: Dose : 100 mg = 1 tab(s), Oral, BID, do not crush or chew, # 180 tab(s), 3 Refill(s), Pharmacy: [facility], Shortness of breath, 177.8, cm, 11/28/23 13:54:00 EDT, Height, kg, 11/28/23 13:54:00 EDT, Dosing Weight Trulicity Pen 1.5 mg/0.5 mL subcutaneous solution: Dose : 1.5 mg =, Subcutaneous, qWeek, sent in absence of PCP, # 4 EA, 3 Refill(s), Pharmacy: [facility], 177.8, cm, 11/28/23 13:54:00EDT, Height, kg, 11/28/23 13:54:00 EDT, Dosing Weight Vistaril 25 mg oral capsule: Dose : 25 mg = 1 cap(s), Oral, QID, PRN as needed for anxiety, X 30 day(s), # 120 cap(s), 5 Refill(s), 06/09/24 16:10:00 EST, Pharmacy: [facility], 177.8, cm, 11/28/23 13:54:00 EDT, Height, kg, 11/28/23 13:54:00 EDT, Dosing Weight Xarelto 20 mg oral tablet: Dose : 20 mg = 1 tab(s), Oral, qHS, # 90 tab(s), 3 Refill(s), Pharmacy: [facility], 177.8, cm, 11/28/23 13:54:00 EDT, Height, 151.4, kg, 11/28/23 13:54:00 EDT, Dosing Weight allopurinol 100 mg oral tablet: Dose : 100 mg = 1 tab(s), Oral, qDay, # 90 tab(s), 3 Refill(s), Pharmacy: [facility], 177.8, cm, 11/28/23 13:54:00 EDT, Height, kg, 11/28/23 13:54:00 EDT, Dosing Weight cetirizine 10 mg oral tablet: Dose : 10 mg = 1 tab(s), Oral, Daily, # 90 tab(s), 3 Refill(s), Pharmacy: [facility], 177.8, cm, 11/28/23 13:54:00 EDT, Height, kg, 11/28/23 13:54:00 EDT,Dosing Weight nystatin 100,000 units/g topical cream: Apply 1 frida, Topical, BID, X 10 day(s), # 30 gram(s), 1 Refill(s), Pharmacy: [facility]/pharmacy #[id number], Cream, 177, cm, 01/12/24 9:42:00 EDT, Height, 148.6, kg, 01/12/24 9:42:00 EDT, Dosing Weight omeprazole 40 mg oral delayed release capsule: Dose : 40 mg = 1 cap(s), Oral, BID, before a meal., # 180 cap(s), 3 Refill(s), Pharmacy: [facility], 177.8, cm, 11/28/23 13:54:00 EDT, Height, kg, 11/28/23 13:54:00 EDT, Dosing Weight rosuvastatin 20 mg oral tablet: Dose : 20 mg = 1 tab(s), Oral, Daily, # 100 tab(s), 3 Refill(s), Pharmacy: [facility], 177.8, cm, 11/28/23 13:54:00 EDT, Height, kg, 11/28/23 13:54:00 EDT, Dosing Weight sacubitril-valsartan 49 mg-51 mg oral tablet: Dose = 1 tab(s), Oral, BID, # 180 tab(s), 3 Refill(s), Pharmacy: [facility], 177.8, cm, 11/28/23 13:54:00 EDT, Height, kg, 11/28/23 13:54:00 EDT, Dosing Weight spironolactone 25 mg oral tablet: Dose : 25 mg = 1 tab(s), Oral, qDay, # 90 tab(s), 3 Refill(s), Pharmacy: [facility], 177.8, cm, 11/28/23 13:54:00 EDT, Height, kg, 11/28/23 13:54:00 EDT, Dosing Weight tiZANidine 2 mg oral tablet: Dose : 2 mg = 1 tab(s), Oral, q8h, PRN as needed for muscle spasm, # 90 tab(s), 2 Refill(s), Pharmacy: [facility], 177.8, cm, 11/28/23 13:54:00 EDT, Height, kg, 11/28/23 13:54:00 EDT, Dosing Weight traZODone 100 mg oral tablet: Dose : 100 mg = 1 tab(s), Oral, qHS, # 90 tab(s), 3 Refill(s), Pharmacy: [facility], 177.8, cm, 11/28/23 13:54:00 EDT, Height, [...] list: Medical Asthma exacerbation / SNOMED CT 1951684524 / Confirmed Anxiety / SNOMED CT 05277796 / Confirmed Atopic dermatitis / SNOMED CT 83284748 / Confirmed BMI 45.0-49.9, adult / SNOMED CT 4332464543 / Confirmed Cardiomyopathy / SNOMED CT 996442466 / Confirmed Diabetes mellitus / SNOMED CT 719562590 / Confirmed Generalized anxiety disorder / SNOMED CT 35329146 / Confirmed Hyperlipidemia / SNOMED CT 53472980 / Confirmed Hypertension / SNOMED CT 9980602619 / Confirmed Insomnia / SNOMED CT 579126700 / Confirmed Moderate asthma / SNOMED CT 5393312167 / Confirmed Morbid obesity / SNOMED CT 061145642 / Confirmed Chewing tobacco nicotine dependence / SNOMED CT 78273900 / Confirmed Obstructive sleep apnea / SNOMED CT 902173474 / Confirmed Right knee pain / SNOMED CT 3018083673 / Confirmed Paroxysmal atrial fibrillation / SNOMED CT 669881027 / Confirmed Screening for ischemic heart disease / SNOMED CT 156985698 / Confirmed Screening for colon cancer / SNOMED CT 459031818 / Confirmed Prediabetes / SNOMED CT 7915321660 / Confirmed Right flank pain / SNOMED CT 571750774 / Confirmed Type 2 diabetes mellitus with hemoglobin A1c goal of less than 7.0% / SNOMED CT 058676099 / Confirmed Wheezing / SNOMED CT 16861810 / Confirmed, Active Problems (26) Anxiety Asthma [...] Mother Grandparent Stroke Father Procedure history: Cardioversion ([id number]) on 12/23/2022 at 52 Years. Echocardiogram ([id number]) on 11/11/2022 at 52 Years. Comments: 03/20/2023 [...] right atrial pressure is 15 mm Hg [facility] ([id number]). Comments: 07/11/2022 8:26 CRISTINO Sinha, SHAHEEN Hansen bursjordi - right Social History: Social & Psychosocial [...] On and Limits Checked Nail Bed Color [place] Capillary Refill < 2 seconds Heart Sounds [...] Elimination Voiding, no difficulties All Extremity Description [place] Skin Temperature Warm Temperature All Extremities Warm Skin Description [place], Dry Skin Integrity Intact Skin Turgor Non-Elastic Mucous Membrane Color [place] Mucous Membrane Description Moist Neurological Language Able to speak clearly Neurological Symptoms Patient denies Gait Unable to assess Extremity Movement Equal Swallowing Difficulty None Characteristics of Communication Appropriate Characteristics of Speech Clear Facial Symmetry Symmetric Level of Consciousness Alert Aspiration Risk None Eye Opening Response [place] Spontaneously Best Motor Response Luis Felipe Obeys simple commands Best Verbal Response [place] Oriented Luis Felipe Coma Score 15 CLARA [...] On and Limits Checked Nail Bed Color [place] Capillary Refill < 2 seconds Heart Sounds ICU S1S2 Heart Rhythm Irregular Cardiac Rhythm Sinus rhythm Monitoring Lead II, V5/MCL5 LA Interval 0.16 second(s) QRS Duration 0.08 second(s) [...] Elimination Voiding, no difficulties All Extremity Description [place] Skin Temperature Warm Temperature All Extremities Warm Skin Description [place], Dry Skin Integrity Intact Skin Turgor Non-Elastic Mucous Membrane Color [place] Mucous Membrane Description Moist Neurological Language Able to speak clearly Neurological Symptoms Patient denies Gait Unable to assess Extremity Movement Equal Swallowing Difficulty None Characteristics of Communication Appropriate Characteristics of Speech Clear Facial Symmetry Symmetric Level of Consciousness Alert Aspiration Risk None Eye Opening Response Luis Felipe Spontaneously Best Motor Response Luis Felipe Obeys simple commands Best Verbal Response [place] Oriented [place] Coma Score 15 CLARA Yes Strength All [...] date/time 01/31/2024 22:20 Provider Notified [facility] Notification Method Pager Information Communicated Medication request [...] On and Limits Checked Nail Bed Color [place] Capillary Refill < 2 seconds Heart Sounds [...] Movement Makes facial grimaces All Extremity Description [place] Skin Temperature Warm Temperature All Extremities Warm Skin Description [place], Dry Skin Integrity Intact Skin Turgor Non-Elastic Mucous Membrane Color [place] Mucous Membrane Description Moist Sensory Perception [place] [...] On and Limits Checked Nail Bed Color [place] Capillary Refill < 2 seconds Heart Sounds [...] intact Skin Turgor Non-Elastic Mucous Membrane Color [place] Mucous Membrane Description Moist Neurological Language Able to speak clearly Neurological Symptoms Patient denies Extremity Movement Equal Swallowing Difficulty None Characteristics of Communication Appropriate Characteristics of Speech Clear Facial Symmetry Symmetric Level of Consciousness Alert Aspiration Risk None Eye Opening Response [place] Spontaneously Best Motor Response [place] Obeys simple commands Best Verbal Response [place] Oriented [place] Coma Score 15 CLARA Yes Left Pupil [...] of Bed Elevated 30 01/31/2024 15:[address] [facility] Current Living Situation I have a steady place to live [facility] Current Issues Living Environment None [facility] Worried Food Running Out P12M Never true [facility] Food Gone, No Money To Buy P12M Never true [facility] No Transport Med/Appt/Work P12M No [facility] Utilities Threaten Shut Off P12M No [facility] Anyone Physically Hurt You Never (1) [facility] Anyone Insult Or Talk Down To You Never (1) [facility] Anyone Threaten You With Harm Never (1) [facility] Anyone Scream Or Curse At You Never (1) [facility] Safety Total Score 4 Living Situation Lives with family Discharge To, Anticipated Home independently Anticipated Discharge Date 02/02/2024 Transition Planning Note Transition Planning Initial Assessment 01/31/2024 15:36 EDT Primary Care Phone Message Transition of Care sent from [facility] 01/31/2024 14:59 EDT heparin 9,000 unit(s) unit(s) Dextrose 5% Premix Diluent 90 mL mL 01/31/2024 14:43 EDT [place] Body Weight 72.7 kg Home Diet Regular Weight Chg, Unintentional Nutrition Hx Weight stable per [place] history Appetite Good Nutrition Plan of Care Dietitian follow up/monitor, Encourage PO feedings, Participate in team conference Nutrition Follow-Up Needed Yes Days until [employer] Carpenter Follow Up Seven days Adult Nutrition Initial Assessment/Plan Adult Nutrition Assessment/Plan 01/31/2024 14:22 EDT Transition of Care Note Transition of Care sent from [facility] 01/31/2024 14:00 EDT Hand Right 01/30/2024 20 [...] On and Limits Checked Nail Bed Color [place] Capillary Refill < 2 seconds Heart Rhythm [...] Description Normal for ethnicity Mucous Membrane Color [place] Mucous Membrane Description Moist Hand Right 01/30/2024 [...] On and Limits Checked Nail Bed Color [place] Capillary Refill < 2 seconds Heart Rhythm [...] intact Skin Turgor Non-Elastic Mucous Membrane Color [place] Mucous Membrane Description Moist Continuous IV Infusions [...] Response Luis Felipe Spontaneously Best Motor Response [place] Obeys simple commands Best Verbal Response [place] Oriented [place] Coma Score 15 CLARA Yes Left Pupil [...] On and Limits Checked Nail Bed Color [place] Capillary Refill < 2 seconds Heart Rhythm [...] Description Normal for ethnicity Mucous Membrane Color [place] Mucous Membrane Description Moist Continuous IV Infusions [...] On and Limits Checked Nail Bed Color [place] Capillary Refill < 2 seconds Heart Rhythm [...] intact Skin Turgor Non-Elastic Mucous Membrane Color [place] Mucous Membrane Description Moist Continuous IV Infusions [...] Alert Aspiration Risk None Eye Opening Response [place] Spontaneously Best Motor Response [place] Obeys simple commands Best Verbal Response [place] Oriented Luis Felipe Coma Score 15 CLARA [...] On and Limits Checked Nail Bed Color [place] Capillary Refill < 2 seconds Heart Rhythm [...] intact Skin Turgor Non-Elastic Mucous Membrane Color [place] Mucous Membrane Description Moist Continuous IV Infusions [...] On and Limits Checked Nail Bed Color [place] Capillary Refill < 2 seconds Heart Rhythm [...] intact Skin Turgor Non-Elastic Mucous Membrane Color [place] Mucous Membrane Description Moist Hand Right 01/30/2024 [...] Felipe Obeys simple commands Best Verbal Response [place] Oriented Luis Felipe Coma Score 15 CLARA [...] EDT Designated Person #1 We May Share [facility] MARILYN OSPINA [phone] Designated Person #1 Relationship Sibling Designated Person #2 We May Share [facility] Designated Person #2 We May Share [facility] Designated Person #2 Relationship Significant other Privacy Restrictions Requested None Height 175 cm Height in inches 68.9 inch(es) Admission Weight 149.1 kg Weight Lbs 328 lb [place] Body Weight 70.46 kg BSA Admission 2.55 [...] evident Teaching Method Explanation Preferred Spoken Language Gibraltarian Preferred Written Language Gibraltarian Teaching Evaluation No further teaching needed Safety [...] On and Limits Checked Nail Bed Color [place] Capillary Refill < 2 seconds Heart Sounds [...] intact Skin Turgor Non-Elastic Mucous Membrane Color [place] Mucous Membrane Description Moist Sensory Perception [place] [...] Alert Aspiration Risk None Eye Opening Response [place] Spontaneously Best Motor Response [place] Obeys simple commands Best Verbal Response [place] Oriented Luis Felipe Coma Score 15 CLARA [...] explained to patient, Risks and benefits explained [facility] group sales representative Transferring Physician MD SAMY JONES MD Receiving Facility Accepting Transfer [facility] Rep. of Receiving Facility Accepting Pt Dr. hernandez Date/Time Transfer Accepted 01/30/2024 23:[address] Hernandez Date/Time Physician Accepted Patient 01/30/2024 23:10 Nurse Receiving Report Nora RN Nurse Receiving Report Nora Date/Time Nurse Received Report 01/31/2024 1:43 Date/Time Nurse Received Report 01/31/2024 1:43 Mode of Transfer Ground ambulance Required Personnel for Transfer Edi Programmer Analyst Ambulance Service [facility] Ambulance Nursing Unit MICU Discharged to Another [...] 250 mL mL . Assessment and Plan [place] [employer] Anesthesi[employer] (ASA) physical status classification: [...] note No data available for this section [facility] Evaluation + Plan note Future Appointments Appointment Date:11/03/2022 09:15:00 AM Scheduled Provider:ZHOU ESPINOSA [facility] Appointment Type:CV CLIENT SERVICE EXECUTIVE Appointment Date:11/08/2022 02:00:00 PM Scheduled Provider:ISADORA CORREA Location:[facility] Appointment Type:PC CLIENT SERVICE EXECUTIVE Unassigned ED Follow Up [facility] Evaluation + Plan note Future Appointments Appointment Date:11/04/2022 08:45:00 AM Scheduled Provider: Location:[facility] Appointment Type:CV CLIENT SERVICE EXECUTIVE Appointment Date:11/08/2022 02:00:00 PM Scheduled Provider:ISADORA CORREA Location:[facility] Appointment Type:PC CLIENT SERVICE EXECUTIVE Unassigned ED Follow Up [facility] Evaluation + Plan note Future Appointments Appointment Date:12/13/2022 03:00:00 PM Scheduled Provider:ISADORA CORREA Location:[facility] Appointment Type:PC OV Follow Up [facility] Evaluation + Plan note Future Appointments Appointment Date:02/07/2023 02:30:00 PM Scheduled Provider:ISADORA CORREA Location:[facility] Appointment Type:PC OV [facility] Evaluation + Plan note Future Appointments Appointment Date:06/20/2023 02:30:00 PM Scheduled Provider:ISADORA CORREA Location:[facility] Appointment Type:PC OV Future Scheduled Tests Laboratory* Basic Metabolic Panel 04/01/23 * A1C Hemoglobin 06/09/23 * Lipid Profile 06/09/23 * Complete Metabolic Panel 06/09/[address] [facility] Evaluation + Plan note Future Appointments Appointment Date:08/22/2023 12:00:00 PM Scheduled Provider: Location:[facility] Appointment Type:PF PFT w/[place]od[place] Appointment Date:11/07/2023 02:00:00 PM Scheduled Provider:ISADORA CORREA Location:[facility] Appointment Type:PC OV Future Scheduled Tests Laboratory* Basic Metabolic Panel 04/01/[address] [facility] Evaluation + Plan note Future Appointments Appointment Date:11/07/2023 02:00:00 PM Scheduled Provider:ISADORA CORREA Location:[facility] Appointment Type:PC OV Future Scheduled Tests Laboratory* Basic Metabolic Panel 04/01/[address] [facility] Evaluation + Plan note Future Appointments Appointment Date:06/20/2023 10:00:00 AM Scheduled Provider:ISADORA CORREA Location:[facility] Appointment Type:PC OV Hospital Follow-Up Appointment Date:06/20/2023 02:30:00 PM Scheduled Provider:ISADORA CORREA Location:[facility] Appointment Type:PC OV Appointment Date:07/17/2023 03:15:00 PM Scheduled Provider:ZHOU ESPINOSA Location:[facility] Appointment Type:CV OV Future Scheduled Tests Laboratory* Basic Metabolic Panel 04/01/23 * A1C Hemoglobin 06/09/23 * Lipid Profile 06/09/23 * Complete Metabolic Panel 06/09/[address] [facility] Evaluation + Plan note Future Appointments Appointment Date:02/13/2024 03:30:00 PM Scheduled Provider:ISADORA CORREA Location:[facility] Appointment Type:PC Wellness Annual w/Labs Future Scheduled Tests Laboratory* Basic Metabolic Panel 04/01/23 * Prostate Specific Antigen 02/07/24 * A1C Hemoglobin 02/07/24 * Lipid Profile 02/07/24 * Complete Metabolic Panel 02/07/[address] [facility] Evaluation + Plan note Future Appointments Appointment Date:03/26/2024 08:00:00 PM Scheduled Provider: Location:[facility] Appointment Type: Sameer Study Appointment Date:05/14/2024 03:00:00 PM Scheduled Provider:ISADORA CORREA Location:[facility] Appointment Type:PC OV Lab Check Future Scheduled Tests Laboratory* Basic Metabolic Panel 02/07/24 * Basic Metabolic Panel 02/19/24 * Basic Metabolic Panel 04/01/23 * Magnesium Level 02/07/24 * A1C Hemoglobin 05/14/24 * Lipid Profile 05/14/24 * Complete Metabolic Panel 05/14/[address] [facility] Evaluation + Plan note Future Appointments Appointment Date:04/01/2024 01:00:00 PM Scheduled Provider:DAMIAN SHRESTHA MD Location:[facility] Appointment Type:GS OV Appointment Date:05/14/2024 03:00:00 PM Scheduled Provider:ISADORA CORREA Location:[facility] Appointment Type:PC OV Lab Check Future Scheduled Tests Laboratory* Basic Metabolic Panel 02/07/24 * Basic Metabolic Panel 02/19/24 * Basic Metabolic Panel 04/01/23 * Magnesium Level 02/07/24 * A1C Hemoglobin 05/14/24 * Lipid Profile 05/14/24 * Complete Metabolic Panel 05/14/[address] [facility] evaluation + Plan note Future Appointments Appointment Date:02/13/2024 03:30:00 PM Scheduled Provider:ISADORA CORREA Location:[facility] Appointment Type:PC Wellness Annual w/Labs Future Scheduled Tests Laboratory* Basic Metabolic Panel 02/07/24 * Basic Metabolic Panel 02/19/24 * Basic Metabolic Panel 04/01/23 * Magnesium Level 02/07/[address] [facility] Evaluation + Plan note Future Appointments Appointment Date:08/12/2024 03:00:00 PM Scheduled Provider:ISADORA CORREA Location:[facility] Appointment Type: Wellness Annual Future Scheduled Tests Laboratory* Basic Metabolic Panel 02/07/24 * Basic Metabolic Panel 02/19/24 * Magnesium Level 02/07/[address] [facility] Evaluation + Plan note Future Appointments Appointment Date:10/23/2024 04:00:00 PM Scheduled Provider:ISADORA CORREA Location:[facility] Appointment Type: OV Appointment Date:11/08/2024 02:30:00 PM Scheduled Provider:EDY WEBER Location:[facility] Appointment Type:[facility] Hospital Follow Up Future Scheduled Tests Laboratory* Basic Metabolic Panel 02/07/24 * Basic Metabolic Panel 12/10/24 * Basic Metabolic Panel 02/19/24 * Magnesium Level 02/07/24 * Complete Blood Count 08/27/24 * Complete Metabolic Panel 08/27/24 * N-Terminal proBNP 08/27/[address] [facility] Evaluation noteNo assessment information available [facility] Work Phone: Hospital Discharge instructions Additional Instructions Call Dr. Etienne's office on Monday to be seen later this coming week.[facility] Work Phone: Hospital Discharge instructions No data available for this section [facility] Hospital Discharge instructions Additional Instructions Chest x-ray negative. COVID and flu negative. Vapor rubs, humidifier. May use loratadine D that you have at home daily. Cough suppressants as needed. Follow-up with your doctor. Return if any worsening symptoms.[facility] Work Phone: Progress note No data available for this section [facility] Summary note* MACIEJ Rasmussen: PERFORM Event Display: Patient Summary Documents Authored Date: [id number] [facility] Summary Purpose Family History No Family History [...] October 23, 2022 6 :09am Power of Customer Support Advisor No October 23, 2022 6:09am Advance Directive Response Recorded Date/ Time Living Will No February 12, 2023 7:08am Power of Customer Support Advisor No January 7:08am Chief Complaint and Reason [...] section and content) DATE CREATED AUTHOR 02/15/2021 [facility] DATE CREATED AUTHOR AUTHOR'S ORGANIZ ATION 08/25/2021 [facility] DATE CREATED AUTHOR AUTHOR'S ORGANIZ ATION 2021 [employer] DATE CREATED AUTHOR AUTHOR'S ORGANIZ ATION 06/07/2022 [facility] DATE CREATED AUTHOR AUTHOR'S ORGANIZ ATION 08/17/2022 [facility] DATE CREATED AUTHOR AUTHOR'S ORGANIZ ATION 10/13/2023 [facility] DATE CREATED AUTHOR AUTHOR'S ORGANIZ ATION 02/02/2024 [facility] ([place] DATE CREATED AUTHOR AUTHOR'S ORGANIZ ATION 10/07/2024 [facility] DATE CREATED AUTHOR AUTHOR'S ORGANIZ ATION 10/23/2024 [facility] DATE CREATED AUTHOR AUTHOR'S ORGANIZ ATION 10/31/2024 [facility] DATE CREATED AUTHOR AUTHOR'S ORGANIZ ATION 11/03/2024 [facility] Care Team (unrecognized sect ion and content) Care Team Personnel Name: PHYSICIAN, NONE Position: Physician Member Role: Primary Care Physician Name: MALORIE PEGUERO MD Position: ED Physician Member Role: ED Physician Address: Address: [facility] [address] Name: SHAHEEN Sinha Position: AO RN Member Role: ED RN Care Team Related Persons Name: MAST, MARILYN Care Team Personnel Name: PHYSICIAN, NONE Position: Physician Member Role: Primary Care Physician Name: JEREMIE MCCORMACK MD Position: ED Physician Member Role: ED Physician Address: Address: [facility] [address] [place], [place] [address] Name: Halley Staples RN Position: AO RN Member Role: ED RN Name: Nadya Montenegro RN Position: AO RN Member Role: ED RN Care Team Related Persons Name: MAST, MARILYN Care Teams (unrecognized sec tion and content) Team Status: Active Member Role Status Dates Dr. Ollie Bright MD Family Provider Active ZACARIAS COHN Primary Care Provider Active Team Status: Inactive Member Role Status Dates Dr. Jameel Brown DO Emergency Provider Active ROMAIN ADAMES Primary Care Provider Active Team Status: Active Member Role Status Dates Dr. Ollie Bright MD Family Provider Active Isadora Correa CLIENT SERVICE EXECUTIVE, CLIENT SERVICE EXECUTIVE-C Primary Care Provider Active Team Status: Inactive Member Role Status Dates Dr. Jameel Brown DO Attending Provider, Emergency Provider Active ROMAIN ADAMES Primary Care Provider Active Team Status: Inactive Member Role Status Dates Dr. Nguyễn Le , DO Emergency Provider Active Isadora Correa CLIENT SERVICE EXECUTIVE, CLIENT SERVICE EXECUTIVE-C Primary Care Provider Active Goals (unrecognized section [...] BE BASED ON THE PRIMARY CLINICAL RECORDS. [facility] [employer]. provides no warranty or guarantee of the accuracy or completeness of information in this document.
[2024-11-04 08:27] LABS: Absolute Lymphocyte Count 1.05 X10^3/uL (0.83-4.51); Absolute Neutrophil Count 2.8 X10^3/uL (2.0-7.7); Basophil# 0.04 X10^3/uL; Basophil% 0.9 % (0-1); Eosinophil# 0.07 X10^3/uL; Eosinophils% 1.6 % (0-5); Hematocrit 41.8 % (40-54); Hemoglobin 13.1 g/dL (13.0-16.5); Lymphocyte # 1.05 X10^3/ul (0.83-4.51); Lymphocyte % 23.5 % (19-41); Mean Corp Hgb Conc 31.3 g/dL (32-36); Mean Corpuscular Hgb 28.6 pg (27.0-32.0); Mean Corpuscular Volume 91.3 fL (80-94); Mean Platelet Vol. 9.7 fl (6.2-12.0); Monocyte# 0.51 X10^3/uL; Monocyte% 11.4 % (0-10); NRBC Flagged by Analyzer 0 % (0-5); Neutrophil # 2.77 X10^3/uL (2.7-7.7); Neutrophil % 62.2 % (47-70); Platelet Count 185 K/mm3 (150-450); RBC Distribution Width CV 15.8 % (11.6-14.6); RBC Distribution Width SD 53.2 fl (35.1-43.9); Red Blood Count 4.58 M/mm3 (4.6-6.2); White Blood Count 4.5 K/mm3 (4.4-11.0)
[2024-11-04 09:14] LABS: Magnesium 2.2 mg/dL (1.5-2.2)
[2024-11-04 09:20] LABS: Anion Gap 10 (5-15); BUN 10 mg/dL (4-19); BUN/Creat Ratio 12.7 RATIO (10-20); Carbon Dioxide 28.1 mmol/L (21.0-32.0); Chloride 101 mmol/L (98-108); EST Glomerular Filtration Rate 106 (>60); Glucose 96 mg/dL (70-99); Potassium 4.2 mmol/L (3.3-5.1); Sodium Level 139 mmol/L (133-145)
== END | disposition home or self-care (01) ==
LOC: OLS.SW 05:00
PROVIDERS: PCP Nurse Practitioner Family; Visit Provider Internal Medicine
DX: J44.9 Chronic obstructive pulmonary disease, unspecified (principal); E11.9 Type 2 diabetes mellitus without complications
CPT/HCPCS: 36415; 80048; 83735; 85025

== ENCOUNTER → 2024-11-06 04:00 | Outpatient (REF) | payer MEDICAID, SELFPAY ==
--- OUTSIDE RECORDS SUMMARY | 2024-11-06 03:58 | XMS RPT_ITS | CCD ---
Author Organization [facility] Care Team Providers Care Forepart Laster Name Role Phone Zacarias Cohn Referring Unavailable [...] Attending Unavailable ISADORA CORREA Primary Care Un[facility] Attending Unavailable [facility] Primary Care Unavailable BETZAIDA PETTIT, DEMI Attending Unavailable [facility] Primary Care Unavailable BETZAIDA PETTIT, DEMI Attending Unavailable [facility] Primary Care Unavailable SAMY JONES Attending Unavailable [facility] Primary Care Unavailable CINDY HERNANDEZ MD Consulting Unavailable DR OLLIE BROOKE MD Attending [facility]abl [facility] Primary Care Unavailable SLOANE AGARWAL DO Attending Unavailable [place], [place] Primary Care Unavailable SLOANE AGARWAL DO Attending Unavailable [facility] Admitting Unavailable [facility] Attending Unavailable [facility] Primary Care Unavailable [facility] Primary Care Unavailable KAVYA WATER/WASTEWATER PROJECT MANAGER-ASSISTANT CONTROLLERJONNY Attending U julio cesar YANES WATER/WASTEWATER PROJECT MANAGER-ASSISTANT CONTROLLERHELEN Attending Unava ilable LORSON WATER/WASTEWATER PROJECT MANAGER-ASSISTANT CONTROLLER, [facility] Care Unavail able LORSON WATER/WASTEWATER PROJECT MANAGER-ASSISTANT CONTROLLER, [place] Attending Unavail able LORSON WATER/WASTEWATER PROJECT MANAGER-ASSISTANT CONTROLLER, [place] Primary Care Unavail able LORSON WATER/WASTEWATER PROJECT MANAGER-ASSISTANT CONTROLLER, [place] Attending Unavail able LORSON WATER/WASTEWATER PROJECT MANAGER-ASSISTANT CONTROLLER, [place] Primary Care Unavail able LORSON WATER/WASTEWATER PROJECT MANAGER-ASSISTANT CONTROLLER, [place] Attending Unavail able LORSON WATER/WASTEWATER PROJECT MANAGER-ASSISTANT CONTROLLER, [place] Primary Care Unavail able LORSON WATER/WASTEWATER PROJECT MANAGER-ASSISTANT CONTROLLER, [place] Primary Care Unavail able LORSON WATER/WASTEWATER PROJECT MANAGER-ASSISTANT CONTROLLER, [place] Attending Unavail able LORSON WATER/WASTEWATER PROJECT MANAGER-ASSISTANT CONTROLLER, [place] Attending Unavail able LORSON WATER/WASTEWATER PROJECT MANAGER-ASSISTANT CONTROLLER, [place] Primary Care Unavail able L[place]SON WATER/WASTEWATER PROJECT MANAGER-ASSISTANT CONTROLLER, [place] Attending Unavail able LORSON WATER/WASTEWATER PROJECT MANAGER-ASSISTANT CONTROLLER, [facility] Care Unavail able CINDY HERNANDEZ MD Consulting Unavailable DR SAMY JONES MD, V Attending Unavai lable LORSON WATER/WASTEWATER PROJECT MANAGER-ASSISTANT CONTROLLER, [facility] Care Unavail able DELORES MURO DO Attending Unavailable L[place]SON WATER/WASTEWATER PROJECT MANAGER-ASSISTANT CONTROLLER, [facility] Care Unavail able DR WILNER JOE MD Attending Unavailabl e LORSON WATER/WASTEWATER PROJECT MANAGER-ASSISTANT CONTROLLER, [facility] Care Unavail able CIRILO PATEL DO Attending Unavailable LORSON WATER/WASTEWATER PROJECT MANAGER-ASSISTANT CONTROLLER, [facility] Care Unavail able JAKE MAXWELL Attending Unavailable JAKE MAXWELL Primary Care Unavailable JAKE MAXWELL Admitting Unavailable MOY WATST MD Attending U julio cesar PECK MD, JANAE Consulting Unavailable NADIR PETTIT, DR JONES Admitting Unavailab le LORSON WATER/WASTEWATER PROJECT MANAGER-[facility], [facility] Unavail michele ZIMMER MD, ARIEL Consulting Unavailable NATALY PETTIT, BRENNON Attending Unavailable DAVID PETTIT, CINDY Aden Admitting Unavailable HELENA GAINES MD Consulting Unavailable LORSON WATER/WASTEWATER PROJECT MANAGER-ASSISTANT CONTROLLER, [facility] Unavail michele HERRMANN MD, DR UPTON Consulting Unavailable DAVID PETTIT, CINDY Aden Consulting Unavailable NANI QUINTANA DO Attending Unavailable LUPE STONE, DR ORTIZ Consulting Unavailable LORSON WATER/WASTEWATER PROJECT MANAGER-ASSISTANT CONTROLLER, [facility] Unavail able FELICE STONE, NANI Admitting Unavailable CORRY STONE, CHANTAL Reardon Consulting Unavailable MELISSA MARIN MD Consulting Unavailable [facility] Consulting Unavailable Sunny SECURITY AGENT, [facility] Unavailable Dolly Walter Attending Unavailable Kimson SECURITY AGENT, [facility] Unavailable Dolly Walter Attending Unavailable [place]son SECURITY AGENT, [facility] Unavailable Dolly Walter Attending Unavailable Dolly Walter Attending Unavailable [place]on SECURITY AGENT, [facility] Unavailable Allergies Allergy Classification Reported Allergen(s) Allergy Type Date of Onset Reaction(s) Facility (4 sources) HMG-CoA reductase inhibitor; 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: [statins] Propensity to adverse reactions to drug myalgia [facility] [place] Medications Current Medications Medication Drug Class(es) Dates [...] every six hours as needed for pain Sellers 325- 5 mg oral tablet Dose = 1 tab(s), Oral, q6h, PRN As needed for severe pain, X 3 day(s), # 12 tab(s), 0 Refill(s), Contusion of rib on right side, 144.4 Start Date: 05/05/23 Stop Date: 05/08/23 Status: Ordered Start: 07-15-2022 End: 07-17-2022 take 1 tablet by mouth every six hours as needed for pain Sellers 325- 5 mg oral tablet Dose = [...] day(s), # 28 tab(s), 0 Refill(s), Pharmacy: [facility]/pharmacy #[id number], Post-op pain, 177.8, cm, 10/17/24 [...] q6h, # 120 EA, 0 Refill(s), Pharmacy: [facility]/pharmacy #[id number], 176, cm, 08/27/24 14:57:00 EDT, Height, kg, 08/27/24 14:57:00 EDT, Dosing Weight Start Date: 08/27/24 Status: Ordered Quantity: 120.0 Unit: EA Repeat number: 1 allopurinol 100 mg oral tablet (20 sources) Xanthine Oxidase Inhibitor Start: 12-12-2023 allopurinol 100 mg oral tablet Dose : 100 mg = 1 tab(s), Oral, qDay, # 90 tab(s), 3 Refill(s), Pharmacy: [facility], 177.8, cm, 11/28/23 13:54:00 EDT, Height, kg, 11/28/23 13:54:00 EDT, Dosing Weight Start Date: 12/12/23 Status: Ordered Quantity: 90.0 Unit: tab(s) Repeat number: 4 Start: 08-08-2023 allopurinol 10 0 mg oral tablet Dose : 100 mg = 1 tab(s), Oral, qDay, # 90 tab(s), 3 Refill(s), [facility]: [facility][id number], 178.5, cm, 08/08/23 13:32:00 EDT, Height, kg, 08/08/23 13:32:00 EDT, Dosing Weight Start Date: 08/08/23 Status: Ordered Start: 10-23-2022 End: 02-06-2023 allopurinol 100 mg oral tabl et Dose : 100 mg = 1 tab(s), Oral, qDay, # 90 tab(s), 3 Refill(s), [facility]: [facility] #[id number], 175.3, cm, 12/23/22 6:37:00 EDT, Height, kg, [...] 100 tab(s), 3 Refill(s), [facility]acy: [facility] #[id number], 178.5, cm, 08/08/23 13:32:00 EDT, Height, kg, 08/08/23 13:32:00 EDT, Dosing Weight Start Date: 08/09/23 Status: Ordered bempedoic acid 180 mg oral tablet (4 sources) Start: 05-14-2024 Nexletol 180 m g oral tablet Dose : 180 mg = 1 tab(s), Oral, qDay, # 30 tab(s), 5 Refill(s), Pharmacy: [facility], 175, cm, 05/14/24 13:59:00 EST, [...] device, # 1 EA, 0 Refill(s), Pharmacy: [facility], 177.8, cm, 11/28/23 13:54:00 EDT, Height, 151.4, kg, 11/28/23 13:54:00 EDT, Dosing Weight Start Date: 12/12/23 Status: Ordered Quantity: 1.0 Unit: EA Repeat number: 1 Start: 12-12-2023 Blood Glucose Test Machine See Instructions, Use glucometer daily as directed for blood sugar checks. Dispense insurance preferred device, # 1 EA, 0 Refill(s), Pharmacy: [facility], 177.8, cm, 11/28/23 13:54:00 EDT, Height, 151.4, kg, 11/28/23 13:54:00 EDT, Dosing Weight Start Date: 12/12/23 Status: Ordered cetirizine hydrochloride 10 mg oral tablet (12 sources) Histamine-1 Receptor Antagonist Start: 08-08-2023 End: 12-06-2024 cetirizine 10 mg oral tablet Dose : 10 mg = 1 tab(s), Oral, Daily, # 90 tab(s), 3 Refill(s), Pharmacy: [facility], 177.8, cm, 11/28/23 13:54:00 EDT, Height, [...] BID, # 180 cap(s), 4 Refill(s), Pharmacy: [facility]/pharmacy #[id number], 177.8, cm, 10/02/24 6:28:00 EDT, Height, kg, 10/02/24 6:28:00 EDT, Dosing Weight Start Date: 10/04/24 Status: Ordered Quantity: 180.0 Unit: cap(s) Repeat number: 5 Start: 09-24-2024 Tikosyn 250 mc g oral capsule Dose : 250 mcg = 1 cap(s), Oral, BID, # 180 cap(s), 1 Refill(s), Pharmacy: [facility]/pharmacy #[id number], 175, cm, 09/05/24 16:01:00 EDT, Height, kg, 09/05/24 16:01:00 EDT, Dosing Weight Start Date: 09/24/24 Status: Ordered Quantity: 180.0 Unit: cap(s) Repeat number: 2 Start: 12-12-2023 Tikosyn 250 mc g oral capsule Dose : 250 mcg = 1 cap(s), Oral, BID, # 180 cap(s), 3 Refill(s), Pharmacy: [facility]/pharmacy #[id number], 177.8, cm, 11/28/23 13:54:00 EDT, Height, kg, 11/28/23 13:54:00 EDT, Dosing Weight Start Date: 12/12/23 Status: Ordered Quantity: 180.0 Unit: cap(s) Repeat number: 4 Start: 06-09-2023 Tikosyn 250 mc g oral capsule Dose : 250 mcg = 1 cap(s), Oral, BID, # 60 cap(s), 2 Refill(s), Pharmacy: [facility] #[id number], 176, cm, 06/07/23 13:36:00 EST, Height, kg, 06/07/23 13:36:00 EST, Dosing Weight Start Date: 06/09/23 Status: Ordered 0.5 ml dulaglutide 3 mg/ml auto-injector (10 sources) GLP-1 Receptor Agonist Start: 04-15-2024 End: 10-02-2025 inject 1 dose by subcutaneous injection every week Trulicity Pen 1.5 mg/0.5 mL subcutaneous solution Dose : 1.5 mg =, Subcutaneous, qWeek, # 12 EA, 3 Refill(s), Pharmacy: [facility]/pharmacy #[id number], 177.8, cm, 10/02/24 6:28:00 EDT, [...] PCP, # 4 EA, 3 Refill(s), Pharmacy: [facility], 177.8, cm, 11/28/23 13:54:00 EDT, Height, kg, 11/28/23 13:54:00 EDT, Dosing Weight Start Date: 12/12/23 Stop Date: 04/02/24 Status: Ordered Start: 08-21-2023 inject 0.5 mL by sub cutaneous injection every week Trulicity Pen 0.75 mg/0.5 mL subcutaneous solution Dose : 0.75 mg = 0.5 mL, Subcutaneous, qWeek, # 2.5 mL, 5 Refill(s), 0.5 mL/Pen, Pharmacy: [facility] #[id number], 177.8, cm, 08/09/23 21:07:00 EDT, Height, kg, [...] qDay, # 30 cap(s), 3 Refill(s), Pharmacy: [facility], 177.8, cm, 11/28/23 13:54:00 EDT, Height, kg, 11/28/23 13:54:00 EDT, Dosing Weight Start Date: 12/12/23 Status: Ordered Start: 08-08-2023 End: 08-02-2024 FLUoxetine 10 mg oral capsul e Dose : 10 mg = 1 cap(s), Oral, qDay, # 30 cap(s), 0 Refill(s), Pharmacy: [facility], 175, cm, 05/14/24 13:59:00 EST, Height, kg, 05/14/24 13:57:00 EST, Dosing Weight Start Date: 05/14/24 Status: Ordered Quantity: 30.0 Unit: cap(s) Repeat number: 1 Start: 06-09-2023 FLUoxetine 10 mg oral capsule Dose : 10 mg = 1 cap(s), Oral, qDay, # 30 cap(s), 2 Refill(s), [facility]acy: [facility] #[id number], 176, cm, 06/07/23 13:36:00 EST, Height, kg, 06/07/23 13:36:00 EST, Dosing Weight Start Date: 06/09/23 Status: Ordered Start: 01-31-2023 FLUoxetine 20 mg oral tablet Dose : 20 mg = 1 tab(s), Oral, qDay, # 90 tab(s), 3 Refill(s), [facility]acy: [facility] #[id number], 175.3, cm, 12/23/22 6:37:00 EDT, Height, kg, 12/23/22 6:38:00 EDT, Dosing Weight Start Date: 01/31/23 Status: Ordered Start: 12-13-2022 FLUoxetine 20 mg oral tablet Dose : 20 mg = 1 tab(s), Oral, qDay, # 30 tab(s), 3 Refill(s), [facility]acy: [facility] #[id number], 175.3, cm, 12/13/22 14:43:00 EDT, Height Start Date: 12/13/22 Status: Ordered Start: 11-08-2022 FLUoxetine 10 mg oral tablet Dose : 10 mg = 1 tab(s), Oral, qDay, # 30 tab(s), 2 Refill(s), [facility]acy: [facility] #[id number], 177, cm, 11/08/22 13:50:00 EDT, Height Start Date: 11/08/22 Status: Ordered 120 actuat fluticasone propionate 0.11 mg/actuat metered dose inhaler (3 sources) Corticosteroid Start: 08-08-2023 End: 08-02-2024 take 2 puff(s) by inhalation twice daily Flovent HFA 110 mcg/inh inhalation aerosol 2 puff(s), Inhalation, BID, # 3 EA, 3 Refill(s), [facility][id number], 178.5, cm, 08/08/23 13:32:00 EDT, Height, kg, [...] daily., # 30 tab(s), 0 Refill(s), Pharmacy: [facility], 175, cm, 02/13/24 15:03:00 EDT, Height, kg, 02/13/24 15:03:00 EDT, Dosing Weight Start Date: 03/07/24 Status: Ordered Quantity: 30.0 Unit: tab(s) Repeat number: 1 Start: 02-09-2024 furosemide 20 mg oral tablet Dose : 20 mg = 1 tab(s), Oral, Daily, Take 2 tablets daily for the first 3 days followed by 1 tablet daily., # 30 tab(s), 3 Refill(s), Pharmacy: [facility]/pharmacy #[id number], 175, cm, 02/09/24 15:58:00 EDT, Height, kg, 02/09/24 15:58:00 EDT, Dosing Weight Start Date: 02/09/24 Status: Ordered Start: 12-12-2023 take 1 tablet by brandon th in the morning, then take 0.5 tablet by mouth in the evening Lasix 40 mg oral tablet See Instructions, 1 tab in AM and 0.5 tab in PM, # 135 tab(s), 3 Refill(s), Pharmacy: [facility], 177.8, cm, 11/28/23 13:54:00 EDT, Height, kg, 11/28/23 13:54:00 EDT, Dosing Weight Start Date: 12/12/23 Status: Ordered Start: 08-08-2023 take 1 tablet by brandon th in the morning, then take 0.5 tablet by mouth in the evening Lasix 40 mg oral tablet See Instructions, 1 tab in AM and 0.5 tab in PM, # 135 tab(s), 3 Refill(s), [facility]acy: [facility] #[id number], 178.5, cm, 08/08/23 13:32:00 EDT, Height, kg, 08/08/23 13:32:00 EDT, Dosing Weight Start Date: 08/08/23 Status: Ordered Start: 11-14-2022 take 1 tablet by brandon th in the morning, then take 0.5 tablet by mouth in the evening Lasix 40 mg oral tablet See Instructions, 1 tab in AM and 0.5 tab in PM, # 135 tab(s), 0 Refill(s), Pharmacy: [facility] #[id number], 177, cm, 11/08/22 13:50:00 EDT, Height, kg, [...] 3 Refill(s), 12/25/24 12:39:00 PM EDT, Pharmacy: [facility], 182, cm, 06/12/24 13:53:00 EST, Height, [...] Refill(s), 06/09/24 4:10:00 PM EST, Pharmacy: [facility], 177.8, cm, 11/28/23 13:54:00 EDT, Height, [...] 05/31/23 2:41:00 PM EST, Pharmacy: [facility] #[id number], 175.3, cm, 12/23/22 6:37:00 EDT, Height, kg, [...] 30 tab(s), 6 Refill(s), [facility]acy: [facility] #[id number], 175.3, cm, 12/23/22 6:37:00 EDT, Height, kg, 12/23/22 6:38:00 EDT, Dosing Weight Start Date: 12/23/22 Status: Ordered metFORMIN hydrochloride 500 mg oral tablet (7 sources) Biguanide Start: 01-31-2023 MetFORMIN (Eqv-Fortamet) 500 mg oral tablet, EXTENDED RELEASE Dose : 500 mg = 1 tab(s), Oral, qDay, # 90 tab(s), 3 Refill(s), Pharmacy: [facility] #[id number], 175.3, cm, 12/23/22 6:37:00 EDT, Height, kg, [...] day(s), # 30 EA, 5 Refill(s), Pharmacy: [facility] #[id number], 177, cm, 11/08/22 13:50:00 EDT, Height Start Date: 11/08/22 Stop Date: 05/07/23 Status: Ordered nystatin 557786 unt/ml topical cream (1 source) Polyene Antifungal Start: 01-12-2024 End: 02-01-2024 nystatin 100,000 units/g topical cream Apply 1 frida, Topical, BID, X 10 day(s), # 30 gram(s), 1 Refill(s), Pharmacy: [facility]/pharmacy #[id number], Cream, 177, cm, 01/12/24 9:42:00 EDT, Height, 148.6, kg, 01/12/24 9:42:00 EDT, Dosing Weight Start Date: 01/12/24 Stop Date: 02/01/24 Status: Ordered omeprazole 40 mg delayed release oral capsule (20 sources) Proton Pump Inhibitor Start: 09-19-2024 omeprazole 40 mg oral delayed release capsule Dose : 40 mg = 1 cap(s), Oral, BID, before a meal., # 180 cap(s), 0 Refill(s), Pharmacy: [facility]/pharmacy #[id number], 175, cm, 09/05/24 16:01:00 EDT, Height, kg, 09/05/24 16:01:00 EDT, Dosing Weight Start Date: 09/19/24 Status: Ordered Quantity: 180.0 Unit: cap(s) Repeat number: 1 Start: 12-12-2023 omeprazole 40 mg oral delayed release capsule Dose : 40 mg = 1 cap(s), Oral, BID, before a meal., # 180 cap(s), 3 Refill(s), Pharmacy: [facility], 177.8, cm, 11/28/23 13:54:00 EDT, Height, kg, 11/28/23 13:54:00 EDT, Dosing Weight Start Date: 12/12/23 Status: Ordered Quantity: 180.0 Unit: cap(s) Repeat number: 4 Start: 08-08-2023 omeprazole 40 mg oral delayed release capsule Dose : 40 mg = 1 cap(s), Oral, BID, before a meal., # 180 cap(s), 3 Refill(s), Pharmacy: [facility] #[id number], 178.5, cm, 08/08/23 13:32:00 EDT, Height, kg, 08/08/23 13:32:00 EDT, Dosing Weight Start Date: 08/08/23 Status: Ordered Start: 05-26-2023 omeprazole 40 mg oral delayed release capsule Dose : 40 mg = 1 cap(s), Oral, BID, before a meal. sent in absence of PCP, # 60 cap(s), 0 Refill(s), [facility]: [facility] #[id number], 152.8, cm, 05/12/23 11:14:00 EST, Height, kg, 05/12/23 11:14:00 EST, Dosing Weight Start Date: 05/26/23 Status: Ordered Start: 03-15-2023 End: 05-14-2023 omeprazole 40 mg oral delaye d release capsule Dose : 40 mg = 1 cap(s), Oral, BID, before a meal, # 60 cap(s), 1 Refill(s), [facility]acy: [facility] #[id number], 175.9, cm, 02/15/23 13:56:00 EDT, Height, kg, [...] 0 Refill(s), 05/24/24 2:36:00 PM EST, Pharmacy: [facility]/pharmacy #[id number], 175, cm, 05/14/24 13:59:00 EST, Height, 143.9, kg, 05/14/24 13:57:00 EST, Dosing Weight Start Date: 05/14/24 Stop Date: 05/24/24 Status: Ordered Quantity: 30.0 Unit: tab(s) Repeat number: 1 polyethylene glycol 3350 wit h electrolytes oral powder for reconstitution (2 sources) Start: 02-15-2023 polyethylene g lycol 3350 with electrolytes oral powder for reconstitution See Instructions, As directed by provider at [facility]., # 1 EA, 0 Refill(s), Pharmacy: [facility] #[id number], Colon cancer screening, 175.9, cm, 02/15/23 13:56:00 EDT, Height, kg, 02/15/23 13:56:00 EDT, Dosing Weight Start Date: 02/15/23 Status: Ordered potassium chloride 20 meq or al tablet (11 sources) Start: 10-04-2024 Potassium Chlo ride (Eqv-K-Tab) 20 mEq oral tablet, extended release Dose : 20 mEq = 1 tab(s), Oral, qDay, Take with food, # 90 tab(s), 3 Refill(s), [id number], 177.8, cm, 10/02/24 6:28:00 EDT, Height, kg, 10/02/24 6:28:00 EDT, Dosing Weight Start Date: 10/04/24 Status: Ordered Quantity: 90.0 Unit: tab(s) Repeat number: 4 Start: 02-09-2024 Potassium Chlo ride (Eqv-K-Tab) 10 mEq oral tablet, extended release Dose : 10 mEq = 1 tab(s), Oral, qDay, # 30 tab(s), 3 Refill(s), Pharmacy: [facility]/pharmacy #[id number], 175, cm, 02/09/24 15:58:00 EDT, [...] Daily, # 100 tab(s), 3 Refill(s), Pharmacy: [facility], 175, cm, 02/13/24 15:03:00 EDT, Height, [...] qHS, # 90 tab(s), 11 Refill(s), Pharmacy: [facility]/pharmacy #[id number], 177.8, cm, 10/02/24 6:28:00 EDT, Height, 140.3, kg, 10/02/24 6:28:00 EDT, Dosing Weight Start Date: 10/04/24 Status: Ordered Quantity: 90.0 Unit: tab(s) Repeat number: 12 Start: 12-12-2023 Xarelto 20 mg oral tablet Dose : 20 mg = 1 tab(s), Oral, qHS, # 90 tab(s), 3 Refill(s), Pharmacy: [facility], 177.8, cm, 11/28/23 13:54:00 EDT, Height, 151.4, kg, 11/28/23 13:54:00 EDT, Dosing Weight Start Date: 12/12/23 Status: Ordered Quantity: 90.0 Unit: tab(s) Repeat number: 4 Start: 08-08-2023 Xarelto 20 mg oral tablet Dose : 20 mg = 1 tab(s), Oral, qHS, # 90 tab(s), 3 Refill(s), Pharmacy: [facility] #[id number], 178.5, cm, 08/08/23 13:32:00 EDT, Height, 156.7, kg, 08/08/23 13:32:00 EDT, Dosing Weight Start Date: 08/08/23 Status: Ordered Start: 10-23-2022 End: 02-06-2023 Xarelto 20 mg oral tablet Do se : 20 mg = 1 tab(s), Oral, qHS, # 90 tab(s), 3 Refill(s), Pharmacy: [facility] #[id number], 175.3, cm, 12/23/22 6:37:00 EDT, Height, 144, kg, 12/23/22 6:38:00 EDT, Dosing Weight Start Date: 01/31/23 Status: Ordered rosuvastatin calcium 20 mg oral tablet (3 sources) HMG-CoA Reductase Inhibitor Start: 12-12-2023 rosuvastatin 20 mg oral tablet Dose : 20 mg = 1 tab(s), Oral, Daily, # 100 tab(s), 3 Refill(s), Pharmacy: [facility], 177.8, cm, 11/28/23 13:54:00 EDT, [...] BID, # 180 tab(s), 3 Refill(s), Pharmacy: [facility], 177.8, cm, 11/28/23 13:54:00 EDT, Height, kg, 11/28/23 13:54:00 EDT, Dosing Weight Start Date: 12/12/23 Stop Date: 12/06/24 Status: Ordered Start: 03-22-2023 take 1 tablet by [facility] twice daily sacubitril-valsartan 49 mg-51 mg oral tablet Dose = 1 tab(s), Oral, BID, # 60 tab(s), 3 Refill(s), [facility]: [facility] #[id number], 175.3, cm, 03/22/23 13:31:00 EDT, Height, kg, 03/22/23 13:31:00 EDT, Dosing Weight Start Date: 03/22/23 Status: Ordered spironolactone 25 mg oral tablet (19 sources) Aldosterone Antagonist Start: 08-08-2023 End: 12-06-2024 spironolactone 25 mg oral tablet Dose : 25 mg = 1 tab(s), Oral, qDay, # 90 tab(s), 3 Refill(s), Pharmacy: [facility], 177.8, cm, 11/28/23 13:54:00 EDT, Height, kg, 11/28/23 13:54:00 EDT, Dosing Weight Start Date: 12/12/23 Stop Date: 12/06/24 Status: Ordered Quantity: 90.0 Unit: tab(s) Repeat number: 4 Start: 02-07-2023 spironolactone 25 mg oral tablet Dose : 25 mg = 1 tab(s), Oral, qDay, # 60 tab(s), 5 Refill(s), [facility]acy: [facility] #[id number], 175.3, cm, 12/23/22 6:37:00 EDT, Height, kg, 12/23/22 6:38:00 EDT, Dosing Weight Start Date: 02/07/23 Status: Ordered Start: 11-24-2022 spironolactone 25 mg oral tablet Dose : 25 mg = 1 tab(s), Oral, qDay, # 60 tab(s), 0 Refill(s), Pharmacy: [facility] #[id number], 177, cm, 11/08/22 13:50:00 EDT, Height, kg, 11/08/22 13:50:00 EDT, Dosing Weight Start Date: 11/24/22 Status: Ordered Start: 11-04-2022 spironolactone 25 mg oral tablet Dose : 25 mg = 1 tab(s), Oral, BIDM, # 60 tab(s), 0 Refill(s), [facility]: [facility] #[id number], 175.3, cm, 11/04/22 8:52:00 EDT, Height Start Date: 11/04/22 Status: Ordered Symbicort 80 mcg-4.5 mcg/inh Inhaler (9 sources) Start: 07-29-2024 End: 07-24-2025 take 1 dose by inhalation twice daily Symbicort 80 mcg-4.5 mcg/inh Inhaler Dose = 2 puff(s), Inhalation, BID, # 30.6 gram(s), 3 Refill(s), Pharmacy: [facility], 182, cm, 06/12/24 13:53:00 EST, Height, kg, 06/12/24 13:53:00 EST, Dosing Weight Start Date: 07/29/24 Stop Date: 07/24/25 Status: Ordered Quantity: 30.6 Unit: g Repeat number: 4 Start: 04-08-2024 End: 08-06-2024 take 1 dose by inhalation twice daily Symbicort 80 mcg-4.5 mcg/inh Inhaler Dose = 2 puff(s), Inhalation, BID, # 10.2 gram(s), 3 Refill(s), Pharmacy: [facility], 175, cm, 04/01/24 13:03:00 EST, Height, kg, 04/01/24 13:03:00 EST, Dosing Weight Start Date: 04/08/24 Stop Date: 08/06/24 Status: Ordered Quantity: 10.2 Unit: g Repeat number: 4 Start: 12-12-2023 End: 04-10-2024 take 1 dose by inhalation twice daily Symbicort 80 mcg-4.5 mcg/inh Inhaler Dose = 2 puff(s), Inhalation, BID, # 10.2 gram(s), 3 Refill(s), Pharmacy: [facility], 177.8, cm, 11/28/23 13:54:00 EDT, [...] qHS, # 90 tab(s), 3 Refill(s), Pharmacy: [facility]/pharmacy #[id number], 177.8, cm, 10/09/24 13:44:00 EDT, Height, kg, 10/09/24 13:44:00 EDT, Dosing Weight Start Date: 10/09/24 Status: Ordered Quantity: 90.0 Unit: tab(s) Repeat number: 4 Start: 09-19-2024 traZODone 100 mg oral tablet Dose : 100 mg = 1 tab(s), Oral, qHS, # 90 tab(s), 2 Refill(s), Pharmacy: [facility]/pharmacy #[id number], 175, cm, 09/05/24 16:01:00 EDT, Height, kg, 09/05/24 16:01:00 EDT, Dosing Weight Start Date: 09/19/24 Status: Ordered Quantity: 90.0 Unit: tab(s) Repeat number: 3 Start: 12-12-2023 traZODone 100 mg oral tablet Dose : 100 mg = 1 tab(s), Oral, qHS, # 90 tab(s), 3 Refill(s), Pharmacy: [facility], 177.8, cm, 11/28/23 13:54:00 EDT, Height, kg, 11/28/23 13:54:00 EDT, Dosing Weight Start Date: 12/12/23 Status: Ordered Quantity: 90.0 Unit: tab(s) Repeat number: 4 Start: 08-08-2023 traZODone 100 mg oral tablet Dose : 100 mg = 1 tab(s), Oral, qHS, # 90 tab(s), 3 Refill(s), [facility]acy: [facility] #[id number], 178.5, cm, 08/08/23 13:32:00 EDT, Height, kg, 08/08/23 13:32:00 EDT, Dosing Weight Start Date: 08/08/23 Status: Ordered Start: 12-13-2022 End: 04-12-2023 traZODone 100 mg oral tablet Dose : 100 mg = 1 tab(s), Oral, qHS, # 90 tab(s), 3 Refill(s), [facility]: [facility] #[id number], 175.3, cm, 12/23/22 6:37:00 EDT, Height, kg, 12/23/22 6:38:00 EDT, Dosing Weight Start Date: 01/31/23 Status: Ordered Start: 11-08-2022 End: 02-06-2023 traZODone 50 mg oral tablet Dose : 50 mg = 1 tab(s), Oral, qHS, # 30 tab(s), 2 Refill(s), [facility]: [id number], 177, cm, 11/08/22 13:50:00 EDT, Height, kg, [...] 30 gram(s), 0 Refill(s), [facility]: [facility] #[id number], Cream, 175.3, cm, 12/13/22 14:43:00 EDT, Height, [...] 4 EA, 3 Refill(s), generic OZEMPIC, [facility]: [facility] #[id number], 178.5, cm, 08/08/23 13:32:00 EDT, Height, kg, [...] chew, # 180 tab(s), 0 Refill(s), Pharmacy: [facility]/pharmacy #[id number], Shortness of breath, 175, cm, [...] chew, # 60 tab(s), 3 Refill(s), [id number], Shortness of breath, 175.3, cm, 03/22/23 13:31:00 EDT, Height, kg, 03/22/23 13:31:00 EDT, Dosing Weight Start Date: 03/22/23 Stop Date: 03/29/23 Status: Ordered Start: 12-23-2022 Toprol-XL 50 m g oral tablet, extended release Dose : 50 mg = 1 tab(s), Oral, BID, # 60 tab(s), 6 Refill(s), [facility]: [facility] #[id number], 175.3, cm, 12/23/22 6:37:00 EDT, Height, kg, [...] spasm, # 21 tab(s), 3 Refill(s), Pharmacy: [facility], 182, cm, 06/12/24 13:53:00 EST, Height, kg, 06/12/24 13:53:00 EST, Dosing Weight Start Date: 08/26/24 Stop Date: 09/23/24 Status: Ordered Quantity: 21.0 Unit: tab(s) Repeat number: 4 Start: 03-04-2024 tiZANidine 2 m g oral tablet Dose : 2 mg = 1 tab(s), Oral, q8h, PRN as needed for muscle spasm, # 90 tab(s), 2 Refill(s), Pharmacy: [facility], 175, cm, 02/13/24 15:03:00 EDT, Height, kg, 02/13/24 15:03:00 EDT, Dosing Weight Start Date: 03/04/24 Status: Ordered Quantity: 90.0 Unit: tab(s) Repeat number: 3 Start: 01-08-2024 tiZANidine 2 m g oral tablet Dose : 2 mg = 1 tab(s), Oral, q8h, PRN as needed for muscle spasm, # 90 tab(s), 2 Refill(s), [facility], 177.8, cm, 11/28/23 13:54:00 EDT, [...] sources) Long-term current use of anticoagulant; 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: [long-term (current) use of anticoagulants] Episodic Other aftercare (1 source) technician terminal and repeater (current) use of anticoagulants; 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: [long-term (current) use of anticoagulants] Onset: 10-16-2024 Episodic [...] Range Facility Basic Metabolic Profile (BMP )on 11-04-2024 BUN/CRE 12.7 RATIO Normal 10-20 [facility] Comment on above: Order Comment: 210.1 Performed By: #### L 500.2500, L100.0100, L501.5200 #### [facility] [address] [place], [address] Calcium [Mass/Vol] 9.0 mg/dL Normal 7.6-11.0 [facility] Comment on above: Order Comment: 210.1 Performed By: #### L 500.2500, L100.0100, L501.5200 #### [facility] [address] [place], [address] Chloride [Moles/Vol] 101 mmol/L Normal 98-108 [facility] Comment on above: Order Comment: 210.1 Performed By: #### L 500.2500, L100.0100, L501.5200 #### [facility] [address] [place], [address] CO2 [Moles/Vol] 28.1 mmol/L Normal 21.0-32.0 [facility] Comment on above: Order Comment: 210.1 Performed By: #### L 500.2500, L100.0100, L501.5200 #### [facility] [address] [place], [address] Creatinine [Mass/Vol] 0.80 mg/dL Normal 0.70-1.20 [facility] Comment on above: Order Comment: 210.1 Performed By: #### L 500.2500, L100.0100, L501.5200 #### [facility] [address] [place], [address] GAP 10 Normal 5-15 [facility] Comment on above: Order Comment: 210.1 Performed By: #### L 500.2500, L100.0100, L501.5200 #### [facility] [address] [place], [address] GFR/1.73 sq M.predicted among non-blacks MDRD (S/P/Bld) [Vol rate/Area] 106 mL/min/{1.73_m2} Normal >60 [facility] Comment on above: Order Comment: 210.1 Result Comment: mL/m in/1.73m2 CKD-EPI Creatinine Equation (2020) Performed By: #### L 500.2500, L100.0100, L501.5200 #### [facility] [address] [place], [address] Glucose [Mass/Vol] 96 mg/dL Normal 70-99 [facility] Comment on above: Order Comment: 210.1 Performed By: #### L 500.2500, L100.0100, L501.5200 #### [facility] [address] [place], [address] Potassium [Moles/Vol] 4.2 mmol/L Normal 3.3-5.1 [facility] Comment on above: Order Comment: 210.1 Result Comment: Hemo lysis present, Results??could be affected. ?? Performed By: #### L 500.2500, L100.0100, L501.5200 #### [facility] [address] [place], [address] Sodium [Moles/Vol] 139 mmol/L Normal 133-145 [facility] Comment on above: Order Comment: 210.1 Performed By: #### L 500.2500, L100.0100, L501.5200 #### [facility] [address] [place], [address] Urea nitrogen [Mass/Vol] 10 mg/dL Normal 4-19 [facility] Comment on above: Order Comment: 210.1 Performed By: #### L 500.2500, L100.0100, L501.5200 #### [facility] [address] [place], [address] CBC W/Diff, Automatedon 06-0 9-202 Absolute Lymph 1.05 X10 3/uL Normal 0.83-4.51 [facility] Comment on above: Order Comment: 210.1 Performed By: #### L 500.2500, L100.0100, L501.5200 #### [facility] [address] [place], [address] Absolute Neut 2.8 X10 3/uL Normal 2.0-7.7 [facility] Comment on above: Order Comment: 210.1 Performed By: #### L 500.2500, L100.0100, L501.5200 #### [facility] [address] [place], [address] Basophils/100 WBC (Bld) 0.9 % Normal 0-1 [facility] Comment on above: Order Comment: 210.1 Performed By: #### L 500.2500, L100.0100, L501.5200 #### [facility] [address] [place], [address] Eosinophils/100 WBC (Bld) 1.6 % Normal 0-5 [facility] Comment on above: Order Comment: 210.1 Performed By: #### L 500.2500, L100.0100, L501.5200 #### [facility] [address] [place], [address] Erythrocyte distribution width (RBC) [Ratio] 15.8 % High 11.6-14.6 [facility] Comment on above: Order Comment: 210.1 Performed By: #### L 500.2500, L100.0100, L501.5200 #### [facility] [address] [place], [address] Hematocrit (Bld) [Volume fraction] 41.8 % Normal 40-54 [facility] Comment on above: Order Comment: 210.1 Performed By: #### L 500.2500, L100.0100, L501.5200 #### [facility] [address] [place], [address] Hemoglobin (Bld) [Mass/Vol] 13.1 g/dL Normal 13.0-16.5 [facility] Comment on above: Order Comment: 210.1 Performed By: #### L 500.2500, L100.0100, L501.5200 #### [facility] [address] [place], [address] IG% 0.400 Normal 0.0-0.9 [facility] Comment on above: Order Comment: 210.1 Result Comment: IG% - Immature Granulocytes (promyelocytes, myelocytes and metamyelocytes) > 1% indicates that a LEFT SHIFT is Present. Performed By: #### L 500.2500, L100.0100, L501.5200 #### [facility] [address] [place], [address] Lymphocytes/100 WBC (Bld) 23.5 % Normal 19-41 [facility] Comment on above: Order Comment: 210.1 Performed By: #### L 500.2500, L100.0100, L501.5200 #### [facility] [address] [place], [address] MCH (RBC) [Entitic mass] 28.6 pg Normal 27.0-32.0 [facility] Comment on above: Order Comment: 210.1 Performed By: #### L 500.2500, L100.0100, L501.5200 #### [facility] [address] [place], [address] MCHC (RBC) [Mass/Vol] 31.3 g/dL Low 32-36 [facility] Comment on above: Order Comment: 210.1 Performed By: #### L 500.2500, L100.0100, L501.5200 #### [facility] [address] [place], [address] MCV (RBC) [Entitic vol] 91.3 fL Normal 80-94 [facility] Comment on above: Order Comment: 210.1 Performed By: #### L 500.2500, L100.0100, L501.5200 #### [facility] [address] [place], [address] Monocytes/100 WBC (Bld) 11.4 % High 0-10 [facility] Comment on above: Order Comment: 210.1 Performed By: #### L 500.2500, L100.0100, L501.5200 #### [facility] [address] [place], [address] Neutrophils/100 WBC (Bld) 62.2 % Normal 47-70 [facility] Comment on above: Order Comment: 210.1 Performed By: #### L 500.2500, L100.0100, L501.5200 #### [facility] [address] [place], [address] Nucleated RBC (Bld) [#/Vol] 0 10*3/uL Normal 0-5 [facility] Comment on above: Order Comment: 210.1 Performed By: #### L 500.2500, L100.0100, L501.5200 #### [facility] [address] [place], [address] Platelet mean volume (Bld) [Entitic vol] 9.7 fL Normal 6.2-12.0 [facility] Comment on above: Order Comment: 210.1 Performed By: #### L 500.2500, L100.0100, L501.5200 #### [facility] [address] [place], [address] Platelets (Bld) [#/Vol] 185 10*3/uL Normal 150-450 [facility] Comment on above: Order Comment: 210.1 Performed By: #### L 500.2500, L100.0100, L501.5200 #### [facility] [address] [place], [address] RBC (Bld) [#/Vol] 4.58 10*6/uL Low 4.6-6.2 [facility] Comment on above: Order Comment: 210.1 Performed By: #### L 500.2500, L100.0100, L501.5200 #### [facility] [address] [place], [address] RDW SD 53.2 fl High 35.1-43.9 [facility] Comment on above: Order Comment: 210.1 Performed By: #### L 500.2500, L100.0100, L501.5200 #### [facility] [address] [place], [address] WBC (Bld) [#/Vol] 4.5 10*3/uL Normal 4.4-11.0 [facility] Comment on above: Order Comment: 210.1 Performed By: #### L 500.2500, L100.0100, L501.5200 #### [facility] [address] [place], [address] Magnesiumon 11-04-2024 Magnesium [Mass/Vol] 2.2 mg/dL Normal 1.5-2.2 [facility] Comment on above: Order Comment: 210.1 Performed By: #### L 500.2500, L100.0100, L501.5200 #### [facility] [address] [place], [address] Hemoglobin A1con 10-30-2024 HbA1c (Bld) [Mass fraction] 5.8 % High <=5.6 [facility] Comment on above: Result Comment: Norm al < 5.7 % Prediabetic 5.7 - 6.4 % Diabetic >or= 6.5 % Please note range changes. Performed By: #### L 500.2500, L100.0100, L501.5200 #### [facility] [address] [place], [address] Lipid Profileon 10-30-2024 CHOL:HDL 3.64 Normal [facility] Comment on above: Performed By: #### L 500.2500, L100.0100, L501.5200 #### [facility] [address] [place], [address] Cholesterol [Mass/Vol] 83 mg/dL Normal <=200 [facility] Comment on above: Result Comment: Chol esterol level, Desirable <200 mg/dL Borderline high cholesterol 200-239 mg/dL High cholesterol >=240 mg/dL Recommendations of the NCEP Adult Treatment Panel for the following risk-cutoff thresholds for the [place] population. Performed By: #### L 500.2500, L100.0100, L501.5200 #### [facility] [address] [place], [address] Cholesterol in HDL [Mass/Vol] 23 mg/dL Low [facility] Comment on above: Result Comment: Fern onal Cholesterol Education Program (NCEP) guidelines: <40 mg/dL: Low HDL-cholesterol (major risk factor for CHD) >= 60 mg/dL: High HDL-cholesterol (negative risk factor for CHD) HDL-cholesterol is affected by a number of factors, e.g. smoking, exercise, hormones, sex and age. Performed By: #### L 500.2500, L100.0100, L501.5200 #### [facility] [address] [place], [address] Cholesterol in LDL [Mass/Vol] 34 mg/dL Normal [facility] Comment on above: Result Comment: Bord wwsjzb=766-972 mg/dL Higher Iiyb=924 mg/dL or greater Performed By: #### L 500.2500, L100.0100, L501.5200 #### [facility] [address] [place], [address] Cholesterol in VLDL [Mass/Vol] 26 mg/dL Normal 5-40 [facility] Comment on above: Performed By: #### L 500.2500, L100.0100, L501.5200 #### [facility] [address] [place], [address] Triglyceride [Mass/Vol] 129 mg/dL Normal [facility] Comment on above: Result Comment: The drugs N-Acetylcysteine and Metamizole may falsely depress this assay. Normal range: <150 mg/dL Borderline High: 150-199 mg/dL High: 200-499 mg/dL Very High: >500 mg/dL Performed By: #### L 500.2500, L100.0100, L501.5200 #### [facility] [address] [place], [address] Basic Metabolic Profile (BMP )on 10-28-2024 BUN/CRE 13.8 RATIO Normal 10-20 [facility] Comment on above: Order Comment: 210 Performed By: #### L 500.2500, L501.9520, L501.5200, L506.1001, L500.4100, L501.1400, L100.0100 #### [facility] [address] [place], [address] Calcium [Mass/Vol] 8.9 mg/dL Normal 7.6-11.0 [facility] Comment on above: Order Comment: 210 Performed By: #### L 500.2500, L501.9520, L501.5200, L506.1001, L500.4100, L501.1400, L100.0100 #### [facility] [address] [place], [address] Chloride [Moles/Vol] 98 mmol/L Normal 98-108 [facility] Comment on above: Order Comment: 210 Performed By: #### L 500.2500, L501.9520, L501.5200, L506.1001, L500.4100, L501.1400, L100.0100 #### [facility] [address] [place], [address] CO2 [Moles/Vol] 27.1 mmol/L Normal 21.0-32.0 [facility] Comment on above: Order Comment: 210 Performed By: #### L 500.2500, L501.9520, L501.5200, L506.1001, L500.4100, L501.1400, L100.0100 #### [facility] [address] [place], [address] Creatinine [Mass/Vol] 0.74 mg/dL Normal 0.70-1.20 [facility] Comment on above: Order Comment: 210 Performed By: #### L 500.2500, L501.9520, L501.5200, L506.1001, L500.4100, L501.1400, L100.0100 #### [facility] [address] [place], [address] GAP 10 Normal 5-15 [facility] Comment on above: Order Comment: 210 Performed By: #### L 500.2500, L501.9520, L501.5200, L506.1001, L500.4100, L501.1400, L100.0100 #### [facility] [address] [place], [address] GFR/1.73 sq M.predicted among non-blacks MDRD (S/P/Bld) [Vol rate/Area] 108 mL/min/{1.73_m2} Normal >60 [facility] Comment on above: Order Comment: 210 Result Comment: mL/m in/1.73m2 CKD-EPI Creatinine Equation (2020) Performed By: #### L 500.2500, L501.9520, L501.5200, L506.1001, L500.4100, L501.1400, L100.0100 #### [facility] [address] [place], [address] Glucose [Mass/Vol] 108 mg/dL High 70-99 [facility] Comment on above: Order Comment: 210 Performed By: #### L 500.2500, L501.9520, L501.5200, L506.1001, L500.4100, L501.1400, L100.0100 #### [facility] [address] [place], [address] Potassium [Moles/Vol] 4.1 mmol/L Normal 3.3-5.1 [facility] Comment on above: Order Comment: 210 Performed By: #### L 500.2500, L501.9520, L501.5200, L506.1001, L500.4100, L501.1400, L100.0100 #### [facility] [address] [place], [address] Sodium [Moles/Vol] 135 mmol/L Normal 133-145 [facility] Comment on above: Order Comment: 210 Performed By: #### L 500.2500, L501.9520, L501.5200, L506.1001, L500.4100, L501.1400, L100.0100 #### [facility] [address] [place], [address] Urea nitrogen [Mass/Vol] 10 mg/dL Normal 4-19 [facility] Comment on above: Order Comment: 210 Performed By: #### L 500.2500, L501.9520, L501.5200, L506.1001, L500.4100, L501.1400, L100.0100 #### [facility] [address] [place], [address] CBC W/Diff, Automatedon 06-0 2-2024 Absolute Lymph 1.07 X10 3/uL Normal 0.83-4.51 [facility] Comment on above: Order Comment: 210 Performed By: #### L 500.2500, L501.9520, L501.5200, L506.1001, L500.4100, L501.1400, L100.0100 #### [facility] [address] [place], [address] Absolute Neut 2.8 X10 3/uL Normal 2.0-7.7 [facility] Comment on above: Order Comment: 210 Performed By: #### L 500.2500, L501.9520, L501.5200, L506.1001, L500.4100, L501.1400, L100.0100 #### [facility] [address] [place], [address] Basophils/100 WBC (Bld) 0.7 % Normal 0-1 [facility] Comment on above: Order Comment: 210 Performed By: #### L 500.2500, L501.9520, L501.5200, L506.1001, L500.4100, L501.1400, L100.0100 #### [facility] [address] [place], [address] Eosinophils/100 WBC (Bld) 2.0 % Normal 0-5 [facility] Comment on above: Order Comment: 210 Performed By: #### L 500.2500, L501.9520, L501.5200, L506.1001, L500.4100, L501.1400, L100.0100 #### [facility] [address] [place], [address] Erythrocyte distribution width (RBC) [Ratio] 15.9 % High 11.6-14.6 [facility] Comment on above: Order Comment: 210 Performed By: #### L 500.2500, L501.9520, L501.5200, L506.1001, L500.4100, L501.1400, L100.0100 #### [facility] [address] [place], [address] Hematocrit (Bld) [Volume fraction] 41.2 % Normal 40-54 [facility] Comment on above: Order Comment: 210 Performed By: #### L 500.2500, L501.9520, L501.5200, L506.1001, L500.4100, L501.1400, L100.0100 #### [facility] [address] [place], [address] Hemoglobin (Bld) [Mass/Vol] 13.0 g/dL Normal 13.0-16.5 [facility] Comment on above: Order Comment: 210 Performed By: #### L 500.2500, L501.9520, L501.5200, L506.1001, L500.4100, L501.1400, L100.0100 #### [facility] [address] [place], [address] IG% 0.400 Normal 0.0-0.9 [facility] Comment on above: Order Comment: 210 Result Comment: IG% - Immature Granulocytes (promyelocytes, myelocytes and metamyelocytes) > 1% indicates that a LEFT SHIFT is Present. Performed By: #### L 500.2500, L501.9520, L501.5200, L506.1001, L500.4100, L501.1400, L100.0100 #### [facility] [address] [place], [address] Lymphocytes/100 WBC (Bld) 24.0 % Normal 19-41 [facility] Comment on above: Order Comment: 210 Performed By: #### L 500.2500, L501.9520, L501.5200, L506.1001, L500.4100, L501.1400, L100.0100 #### [facility] [address] [place], [address] MCH (RBC) [Entitic mass] 28.8 pg Normal 27.0-32.0 [facility] Comment on above: Order Comment: 210 Performed By: #### L 500.2500, L501.9520, L501.5200, L506.1001, L500.4100, L501.1400, L100.0100 #### [facility] [address] [place], [address] MCHC (RBC) [Mass/Vol] 31.6 g/dL Low 32-36 [facility] Comment on above: Order Comment: 210 Performed By: #### L 500.2500, L501.9520, L501.5200, L506.1001, L500.4100, L501.1400, L100.0100 #### [facility] [address] [place], [address] MCV (RBC) [Entitic vol] 91.2 fL Normal 80-94 [facility] Comment on above: Order Comment: 210 Performed By: #### L 500.2500, L501.9520, L501.5200, L506.1001, L500.4100, L501.1400, L100.0100 #### [facility] [address] [place], [address] Monocytes/100 WBC (Bld) 11.0 % High 0-10 [facility] Comment on above: Order Comment: 210 Performed By: #### L 500.2500, L501.9520, L501.5200, L506.1001, L500.4100, L501.1400, L100.0100 #### [facility] [address] [place], [address] Neutrophils/100 WBC (Bld) 61.9 % Normal 47-70 [facility] Comment on above: Order Comment: 210 Performed By: #### L 500.2500, L501.9520, L501.5200, L506.1001, L500.4100, L501.1400, L100.0100 #### [facility] [address] [place], [address] Nucleated RBC (Bld) [#/Vol] 0 10*3/uL Normal 0-5 [facility] Comment on above: Order Comment: 210 Performed By: #### L 500.2500, L501.9520, L501.5200, L506.1001, L500.4100, L501.1400, L100.0100 #### [facility] [address] [place], [address] Platelet mean volume (Bld) [Entitic vol] 9.6 fL Normal 6.2-12.0 [facility] Comment on above: Order Comment: 210 Performed By: #### L 500.2500, L501.9520, L501.5200, L506.1001, L500.4100, L501.1400, L100.0100 #### [facility] [address] [place], [address] Platelets (Bld) [#/Vol] 154 10*3/uL Normal 150-450 [facility] Comment on above: Order Comment: 210 Performed By: #### L 500.2500, L501.9520, L501.5200, L506.1001, L500.4100, L501.1400, L100.0100 #### [facility] [address] [place], [address] RBC (Bld) [#/Vol] 4.52 10*6/uL Low 4.6-6.2 [facility] Comment on above: Order Comment: 210 Performed By: #### L 500.2500, L501.9520, L501.5200, L506.1001, L500.4100, L501.1400, L100.0100 #### [facility] [address] [place], [address] RDW SD 53.1 fl High 35.1-43.9 [facility] Comment on above: Order Comment: 210 Performed By: #### L 500.2500, L501.9520, L501.5200, L506.1001, L500.4100, L501.1400, L100.0100 #### [facility] [address] [place], [address] WBC (Bld) [#/Vol] 4.5 10*3/uL Normal 4.4-11.0 [facility] Comment on above: Order Comment: 210 Performed By: #### L 500.2500, L501.9520, L501.5200, L506.1001, L500.4100, L501.1400, L100.0100 #### [facility] [address] [place], [address] Lipid Profileon 10-28-2024 CHOL:HDL 4.07 Normal [facility] Comment on above: Order Comment: 210 Performed By: #### L 500.2500, L501.9520, L501.5200, L506.1001, L500.4100, L501.1400, L100.0100 #### [facility] [address] [place], [address] Cholesterol [Mass/Vol] 95 mg/dL Normal <=200 [facility] Comment on above: Order Comment: 210 Result Comment: Chol esterol level, Desirable <200 mg/dL Borderline high cholesterol 200-239 mg/dL High cholesterol >=240 mg/dL Recommendations of the NCEP Adult Treatment Panel for the following risk-cutoff thresholds for the [place] population. Performed By: #### L 500.2500, L501.9520, L501.5200, L506.1001, L500.4100, L501.1400, L100.0100 #### [facility] [address] [place], [address] Cholesterol in HDL [Mass/Vol] 23 mg/dL Low [facility] Comment on above: Order Comment: 210 Result Comment: Fern onal Cholesterol Education Program (NCEP) guidelines: <40 mg/dL: Low HDL-cholesterol (major risk factor for CHD) >= 60 mg/dL: High HDL-cholesterol (negative risk factor for CHD) HDL-cholesterol is affected by a number of factors, e.g. smoking, exercise, hormones, sex and age. Performed By: #### L 500.2500, L501.9520, L501.5200, L506.1001, L500.4100, L501.1400, L100.0100 #### [facility] [address] [place], [address] Cholesterol in LDL [Mass/Vol] 46 mg/dL Normal [facility] Comment on above: Order Comment: 210 Result Comment: Bord cuhnhz=016-289 mg/dL Higher Yfgv=052 mg/dL or greater Performed By: #### L 500.2500, L501.9520, L501.5200, L506.1001, L500.4100, L501.1400, L100.0100 #### [facility] [address] [place], [address] Cholesterol in VLDL [Mass/Vol] 26 mg/dL Normal 5-40 [facility] Comment on above: Order Comment: 210 Performed By: #### L 500.2500, L501.9520, L501.5200, L506.1001, L500.4100, L501.1400, L100.0100 #### [facility] [address] [place], [address] Triglyceride [Mass/Vol] 129 mg/dL Normal [facility] Comment on above: Order Comment: 210 Result Comment: The drugs N-Acetylcysteine and Metamizole may falsely depress this assay. Normal range: <150 mg/dL Borderline High: 150-199 mg/dL High: 200-499 mg/dL Very High: >500 mg/dL Performed By: #### L 500.2500, L501.9520, L501.5200, L506.1001, L500.4100, L501.1400, L100.0100 #### [facility] [address] [place], [address] Magnesiumon 10-28-2024 Magnesium [Mass/Vol] 2.2 mg/dL Normal 1.5-2.2 [facility] Comment on above: Order Comment: 210 Performed By: #### L 500.2500, L501.9520, L501.5200, L506.1001, L500.4100, L501.1400, L100.0100 #### [facility] [address] [place], [place], [id number] Thyroid Stim Hormone (TSH)on 10-28-2024 TSH 3.370 uIU/mL Normal 0.300-4.200 [facility] Comment on above: Order Comment: 210 Performed By: #### L 500.2500, L501.9520, L501.5200, L506.1001, L500.4100, L501.1400, L100.0100 #### [facility] [address] [place], [address] Uric Acidon 10-28-2024 URIC 5.8 mg/dL Normal 3.5-7.2 [facility] Comment on above: Order Comment: 210 Result Comment: The drugs N-Acetylcysteine and Metamizole may falsely depress this assay. Performed By: #### L 500.2500, L501.9520, L501.5200, L506.1001, L500.4100, L501.1400, L100.0100 #### [facility] [address] [place], [place], [id number] Vitamin D,25 Hydroxyon 10-28 Vitamin D 25-OH < 6.0 Low 30-100 [facility] Comment on above: Order Comment: 210 Result Comment: Colleen min D Status Deficiency: <20 ng/mL (50nmol/L) Insufficiency: 20-30 ng/mL (50-75 nmol/L) Sufficiency: 30-100 ng/mL (75-250 nmol/L) Toxicity: >100 ng/mL (>250 nmol/L) Performed By: #### L 500.2500, L501.9520, L501.5200, L506.1001, L500.4100, L501.1400, L100.0100 #### [facility] [address] [place], [address] CBC-Complete Blood Cnt No Di ffon 10-24-2024 Erythrocyte distribution width (RBC) [Ratio] 15.6 % High 11.6-14.6 [facility] Comment on above: Performed By: #### L 500.2500, L100.0100, L501.5200 #### [facility] [address] [place], [address] Hematocrit (Bld) [Volume fraction] 40.1 % Normal 40-54 [facility] Comment on above: Performed By: #### L 500.2500, L100.0100, L501.5200 #### [facility] [address] [place], [address] Hemoglobin (Bld) [Mass/Vol] 12.7 g/dL Low 13.0-16.5 [facility] Comment on above: Performed By: #### L 500.2500, L100.0100, L501.5200 #### [facility] [address] [place], [address] MCH (RBC) [Entitic mass] 28.7 pg Normal 27.0-32.0 [facility] Comment on above: Performed By: #### L 500.2500, L100.0100, L501.5200 #### [facility] [address] [place], [address] MCHC (RBC) [Mass/Vol] 31.7 g/dL Low 32-36 [facility] Comment on above: Performed By: #### L 500.2500, L100.0100, L501.5200 #### [facility] [address] [place], [address] MCV (RBC) [Entitic vol] 90.7 fL Normal 80-94 [facility] Comment on above: Performed By: #### L 500.2500, L100.0100, L501.5200 #### [facility] [address] [place], [address] Platelet mean volume (Bld) [Entitic vol] 9.3 fL Normal 6.2-12.0 [facility] Comment on above: Performed By: #### L 500.2500, L100.0100, L501.5200 #### [facility] [address] [place], [address] Platelets (Bld) [#/Vol] 155 10*3/uL Normal 150-450 [facility] Comment on above: Performed By: #### L 500.2500, L100.0100, L501.5200 #### [facility] [address] [place], [address] RBC (Bld) [#/Vol] 4.42 10*6/uL Low 4.6-6.2 [facility] Comment on above: Performed By: #### L 500.2500, L100.0100, L501.5200 #### [facility] [address] [place], [address] RDW SD 51.8 fl High 35.1-43.9 [facility] Comment on above: Performed By: #### L 500.2500, L100.0100, L501.5200 #### [facility] [address] [place], [address] WBC (Bld) [#/Vol] 4.6 10*3/uL Normal 4.4-11.0 [facility] Comment on above: Performed By: #### L 500.2500, L100.0100, L501.5200 #### [facility] [address] [place], [address] Comprehensive Metabolic Prof ilon 10-24-2024 Albumin [Mass/Vol] 3.4 g/dL Low 3.5-5.0 [facility] Comment on above: Performed By: #### L 500.2500, L100.0100, L501.5200 #### [facility] [address] [place], [address] Albumin/Globulin [Mass ratio] 1.0 {ratio} Normal 0.9-2.4 [facility] Comment on above: Performed By: #### L 500.2500, L100.0100, L501.5200 #### [facility] [address] [place], [address] ALK PHOS 76 U/L Normal 40-129 [facility] Comment on above: Performed By: #### L 500.2500, L100.0100, L501.5200 #### [facility] [address] [place], [address] ALT [Catalytic activity/Vol] 6 U/L Normal <=46 [facility] Comment on above: Performed By: #### L 500.2500, L100.0100, L501.5200 #### [facility] [address] [place], [address] AST [Catalytic activity/Vol] 18 U/L Normal <=37 [facility] Comment on above: Performed By: #### L 500.2500, L100.0100, L501.5200 #### [facility] [address] [place], [address] Bilirubin [Mass/Vol] 0.31 mg/dL Normal 0.00-1.30 [facility] Comment on above: Performed By: #### L 500.2500, L100.0100, L501.5200 #### [facility] [address] [place], [address] BUN/CRE 14.6 RATIO Normal 10-20 [facility] Comment on above: Performed By: #### L 500.2500, L100.0100, L501.5200 #### [facility] [address] [place], [address] Calcium [Mass/Vol] 9.0 mg/dL Normal 7.6-11.0 [facility] Comment on above: Performed By: #### L 500.2500, L100.0100, L501.5200 #### [facility] [address] [place], [address] Chloride [Moles/Vol] 99 mmol/L Normal 98-108 [facility] Comment on above: Performed By: #### L 500.2500, L100.0100, L501.5200 #### [facility] [address] [place], [address] CO2 [Moles/Vol] 29.2 mmol/L Normal 21.0-32.0 [facility] Comment on above: Performed By: #### L 500.2500, L100.0100, L501.5200 #### [facility] [address] [place], [address] Creatinine [Mass/Vol] 0.65 mg/dL Low 0.70-1.20 [facility] Comment on above: Performed By: #### L 500.2500, L100.0100, L501.5200 #### [facility] [address] [place], [address] GAP 9 Normal 5-15 [facility] Comment on above: Performed By: #### L 500.2500, L100.0100, L501.5200 #### [facility] [address] [place], [address] GFR/1.73 sq M.predicted among non-blacks MDRD (S/P/Bld) [Vol rate/Area] 113 mL/min/{1.73_m2} Normal >60 [facility] Comment on above: Result Comment: mL/m in/1.73m2 CKD-EPI Creatinine Equation (2020) Performed By: #### L 500.2500, L100.0100, L501.5200 #### [facility] [address] [place], [address] Globulin (S) [Mass/Vol] 3.2 g/dL Normal 2.2-4.2 [facility] Comment on above: Performed By: #### L 500.2500, L100.0100, L501.5200 #### [facility] [address] [place], [address] Glucose [Mass/Vol] 113 mg/dL High 70-99 [facility] Comment on above: Performed By: #### L 500.2500, L100.0100, L501.5200 #### [facility] [address] [place], [address] Potassium [Moles/Vol] 3.8 mmol/L Normal 3.3-5.1 [facility] Comment on above: Performed By: #### L 500.2500, L100.0100, L501.5200 #### [facility] [address] [place], [address] Sodium [Moles/Vol] 137 mmol/L Normal 133-145 [facility] Comment on above: Performed By: #### L 500.2500, L100.0100, L501.5200 #### [facility] [address] [place], [address] T PROT 6.6 g/dL Normal 5.9-8.4 [facility] Comment on above: Performed By: #### L 500.2500, L100.0100, L501.5200 #### [facility] [address] [place] [place], [address] Urea nitrogen [Mass/Vol] 10 mg/dL Normal 4-19 [facility] Comment on above: Performed By: #### L 500.2500, L100.0100, L501.5200 #### [facility] [address] [place], [address] LABORATORYOrdered By: Samanta Morin on 10-23-2024 Blood Glucose Testing Reason Routine (10/23/24 8:27 PM) [facility] Glucose [Mass/Vol] 168 mg/dL High 70 - 110 mg/dL [facility] LABORATORYOrdered By: Sarah Carrillo on 10-23-2024 Blood Glucose Testing Reason Routine (10/23/24 5:31 PM) [facility] Glucose [Mass/Vol] 146 mg/dL High 70 - 110 mg/dL [facility] LABORATORYOrdered By: Gianna Mendez on 10-23-2024 Blood Glucose Testing Reason Routine (10/23/24 12:15 PM) [facility] Glucose [Mass/Vol] 154 mg/dL High 70 - 110 mg/dL [facility] Comment on above: Result Comment: noti fied nurse SHAHEEN Staples .Auto Diffon 10-20-2024 Basophil, Absolute 0.0 10 3/mcL Normal 0.0-0.3 [facility] Comment on above: Performed By: #### M G, GFR, ANEU, ADIFF, CBC, CMP, A1C, LIPID #### [facility] [address] [place] [id number] Basophils/100 WBC (Bld) 0.6 % Normal 0.0-2.5 [facility] Comment on above: Performed By: #### M G, GFR, ANEU, ADIFF, CBC, CMP, A1C, LIPID #### [address] [address] Eosinophil, Absolute 0.1 10 3/mcL Normal 0.0-0.7 [facility] Comment on above: Performed By: #### M G, GFR, ANEU, ADIFF, CBC, CMP, A1C, LIPID #### [address] [address] Eosinophils/100 WBC (Bld) 1.5 % Normal 0.0-6.0 [facility] Comment on above: Performed By: #### M G, GFR, ANEU, ADIFF, CBC, CMP, A1C, LIPID #### [address] [address] Lymphocyte, Absolute 1.0 10 3/mcL Normal 0.9-4.3 [facility] Comment on above: Performed By: #### M G, GFR, ANEU, ADIFF, CBC, CMP, A1C, LIPID #### [address] [address] Lymphocytes/100 WBC (Bld) 21.2 % Normal 20.0-40.0 [facility] Comment on above: Performed By: #### M G, GFR, ANEU, ADIFF, CBC, CMP, A1C, LIPID #### [address] [address] Monocyte, Absolute 0.6 10 3/mcL Normal 0.1-1.4 [facility] Comment on above: Performed By: #### M G, GFR, ANEU, ADIFF, CBC, CMP, A1C, LIPID #### [address] [address] Monocytes/100 WBC (Bld) 11.6 % Normal 2.0-13.0 [facility] Comment on above: Performed By: #### M G, GFR, ANEU, ADIFF, CBC, CMP, A1C, LIPID #### [address] [address] Neutrophils/100 WBC (Bld) 65.1 % Normal 50.0-75.0 [facility] Comment on above: Performed By: #### M G, GFR, ANEU, ADIFF, CBC, CMP, A1C, LIPID #### [address] [address] .GFRon 10-20-2024 Estimated Glomerular Filtration Rate 108 ml/min/1.73sqm Normal [facility] Comment on above: Result Comment: [...] ANEU, ADIFF, CBC, CMP, A1C, LIPID #### [place] [id number] .NEUABSon 10-20-2024 Neutrophil, Absolute 3.2 10 3/mcL Normal 2.3-8.1 [facility] Comment on above: Performed By: #### M G, GFR, ANEU, ADIFF, CBC, CMP, A1C, LIPID #### [address] [address] BMPon 10-20-2024 BUN/Creatinine Ratio 10.8 ratio Normal 10.0-22.0 [facility] Comment on above: Performed By: #### M G, GFR, ANEU, ADIFF, CBC, CMP, A1C, LIPID #### [address] [address] Calcium [Mass/Vol] 8.7 mg/dL Normal 8.7-10.[address] [facility] Comment on above: Performed By: #### M G, GFR, ANEU, ADIFF, CBC, CMP, A1C, LIPID #### [address] [address] Chloride [Moles/Vol] 97 mmol/L Low 98-110 [facility] Comment on above: Performed By: #### M G, GFR, ANEU, ADIFF, CBC, CMP, A1C, LIPID #### [address] [address] CO2 [Moles/Vol] 37 mmol/L High 22-32 [facility] Comment on above: Performed By: #### M G, GFR, ANEU, ADIFF, CBC, CMP, A1C, LIPID #### [address] [address] Creatinine [Mass/Vol] 0.74 mg/dL Normal 0.60-1.40 [facility] Comment on above: Result Comment: Test ing performed on [employer] analyzer using enzymatic creatinine methodology. Performed By: #### M G, GFR, ANEU, ADIFF, CBC, CMP, A1C, LIPID #### [address] [address] Electrolyte Balance 4.0 mEq/L Normal 4.0-15.0 [facility] Comment on above: Performed By: #### M G, GFR, ANEU, ADIFF, CBC, CMP, A1C, LIPID #### [address] [address] Glucose [Mass/Vol] 116 mg/dL High 70-[address] [facility] Comment on above: Performed By: #### M G, GFR, ANEU, ADIFF, CBC, CMP, A1C, LIPID #### [address] [address] Potassium [Moles/Vol] 3.5 mmol/L Normal 3.5-5.0 [facility] Comment on above: Performed By: #### M G, GFR, ANEU, ADIFF, CBC, CMP, A1C, LIPID #### [address] [address] Sodium [Moles/Vol] 138 mmol/L Normal 136-[address] [facility] Comment on above: Performed By: #### M G, GFR, ANEU, ADIFF, CBC, CMP, A1C, LIPID #### [address] [address] Urea nitrogen [Mass/Vol] 8.0 mg/dL Normal 8.0-22.0 [facility] Comment on above: Performed By: #### M G, GFR, ANEU, ADIFF, CBC, CMP, A1C, LIPID #### [place] [id number] CBCon 10-20-2024 Erythrocyte distribution width (RBC) [Ratio] 16.8 % High 11.5-15.5 [facility] Comment on above: Performed By: #### M G, GFR, ANEU, ADIFF, CBC, CMP, A1C, LIPID #### [place] [address] Hematocrit (Bld) [Volume fraction] 41.3 % Normal 40.0-52.0 [facility] Comment on above: Performed By: #### M G, GFR, ANEU, ADIFF, CBC, CMP, A1C, LIPID #### [place] [address] Hgb 13.4 G/dL Normal 13.0-17.5 [facility] Comment on above: Performed By: #### M G, GFR, ANEU, ADIFF, CBC, CMP, A1C, LIPID #### [place] [address] MCH (RBC) [Entitic mass] 28.7 pg Normal 27.0-33.0 [facility] Comment on above: Performed By: #### M G, GFR, ANEU, ADIFF, CBC, CMP, A1C, LIPID #### [place] [id number] MCHC 32.4 G/dL Normal 32.0-36.0 [facility] Comment on above: Performed By: #### M G, GFR, ANEU, ADIFF, CBC, CMP, A1C, LIPID #### [place] [address] MCV (RBC) [Entitic vol] 88.5 fL Normal 81.0-100.0 [facility] Comment on above: Performed By: #### M G, GFR, ANEU, ADIFF, CBC, CMP, A1C, LIPID #### [place] [address] Platelet 175 10 3/mcL Normal 150-450 [facility] Comment on above: Performed By: #### M G, GFR, ANEU, ADIFF, CBC, CMP, A1C, LIPID #### [place] [id number] [address] [place] [address] Platelet mean volume (Bld) [Entitic vol] 7.3 fL Normal 6.4-10.5 [facility] Comment on above: Performed By: #### M G, GFR, ANEU, ADIFF, CBC, CMP, A1C, LIPID #### [place] [id number] [address] [place] [address] RBC 4.67 10 6/mcL Normal 4.50-6.00 [facility] Comment on above: Performed By: #### M G, GFR, ANEU, ADIFF, CBC, CMP, A1C, LIPID #### [place] [id number] [address] [place] [address] WBC 4.8 10 3/mcL Normal 4.5-10.8 [facility] Comment on above: Performed By: #### M G, GFR, ANEU, ADIFF, CBC, CMP, A1C, LIPID #### [place] [address] LABORATORYOrdered By: SYSTEM SYSTEM on 10-20-2024 Basophils [...] above: Interpretive Data: T esting performed on [employer] analyzer using enzymatic creatinine methodology. Electrolyte Balance 4.0 mEq/L Normal 4.0 - 15 .0 mEq/L ADM SS Eosinophils (Bld) [#/Vol] 0.1 103/mcL Normal 0.0 - 0.7 10^3/mcL Workflow SS Eosinophils/100 WBC (Bld) 1.5 % Normal 0.0 - 6.0 % AH Workflow SS Erythrocyte distribution width (RBC) [Ratio] 16.8 % High 11.5 - 15.5 % AH Workflow SS Estimated Glomerular Filtration Rate 108 [...] Basophil, Absolute 0.0 10 3/mcL Normal 0.0-0.3 [facility] Comment on above: Performed By: #### M G, GFR, ANEU, ADIFF, CBC, CMP, A1C, LIPID #### [address] [address] Basophils/100 WBC (Bld) 0.7 % Normal 0.0-2.5 [facility] Comment on above: Performed By: #### M G, GFR, ANEU, ADIFF, CBC, CMP, A1C, LIPID #### [address] [address] Eosinophil, Absolute 0.1 10 3/mcL Normal 0.0-0.7 [facility] Comment on above: Performed By: #### M G, GFR, ANEU, ADIFF, CBC, CMP, A1C, LIPID #### [address] [address] Eosinophils/100 WBC (Bld) 1.9 % Normal 0.0-6.0 [facility] Comment on above: Performed By: #### M G, GFR, ANEU, ADIFF, CBC, CMP, A1C, LIPID #### [address] [address] Lymphocyte, Absolute 1.0 10 3/mcL Normal 0.9-4.3 [facility] Comment on above: Performed By: #### M G, GFR, ANEU, ADIFF, CBC, CMP, A1C, LIPID #### [address] [address] Lymphocytes/100 WBC (Bld) 18.3 % Low 20.0-40.0 [facility] Comment on above: Performed By: #### M G, GFR, ANEU, ADIFF, CBC, CMP, A1C, LIPID #### [address] [address] Monocyte, Absolute 0.5 10 3/mcL Normal 0.1-1.4 [facility] Comment on above: Performed By: #### M G, GFR, ANEU, ADIFF, CBC, CMP, A1C, LIPID #### [address] [address] Monocytes/100 WBC (Bld) 9.1 % Normal 2.0-13.0 [facility] Comment on above: Performed By: #### M G, GFR, ANEU, ADIFF, CBC, CMP, A1C, LIPID #### [address] [address] Neutrophils/100 WBC (Bld) 70.0 % Normal 50.0-75.0 [facility] Comment on above: Performed By: #### M G, GFR, ANEU, ADIFF, CBC, CMP, A1C, LIPID #### [address] [address] .GFRon 10-19-2024 Estimated Glomerular Filtration Rate 109 ml/min/1.73sqm Normal [facility] Comment on above: Result Comment: [...] ANEU, ADIFF, CBC, CMP, A1C, LIPID #### [address] [address] .NEUABSon 10-19-2024 Neutrophil, Absolute 3.8 10 3/mcL Normal 2.3-8.1 [facility] Comment on above: Performed By: #### M G, GFR, ANEU, ADIFF, CBC, CMP, A1C, LIPID #### [address] [address] BMPon 10-19-2024 BUN/Creatinine Ratio 11.1 ratio Normal 10.0-22.0 [facility] Comment on above: Performed By: #### M G, GFR, ANEU, ADIFF, CBC, CMP, A1C, LIPID #### [address] [address] Calcium [Mass/Vol] 8.7 mg/dL Normal 8.7-10.[address] [facility] Comment on above: Performed By: #### M G, GFR, ANEU, ADIFF, CBC, CMP, A1C, LIPID #### [address] [address] Chloride [Moles/Vol] 100 mmol/L Normal 98-110 [facility] Comment on above: Performed By: #### M G, GFR, ANEU, ADIFF, CBC, CMP, A1C, LIPID #### [address] [address] CO2 [Moles/Vol] 33 mmol/L High 22-32 [facility] Comment on above: Performed By: #### M G, GFR, ANEU, ADIFF, CBC, CMP, A1C, LIPID #### [address] [address] Creatinine [Mass/Vol] 0.72 mg/dL Normal 0.60-1.40 [facility] Comment on above: Result Comment: Test ing performed on [employer] analyzer using enzymatic creatinine methodology. Performed By: #### M G, GFR, ANEU, ADIFF, CBC, CMP, A1C, LIPID #### [place] [id number] Electrolyte Balance 4.0 mEq/L Normal 4.0-15.0 [facility] Comment on above: Performed By: #### M G, GFR, ANEU, ADIFF, CBC, CMP, A1C, LIPID #### [place] [id number] Glucose [Mass/Vol] 181 mg/dL High 70-[address] [facility] Comment on above: Performed By: #### M G, GFR, ANEU, ADIFF, CBC, CMP, A1C, LIPID #### [place] [id number] Potassium [Moles/Vol] 3.5 mmol/L Normal 3.5-5.0 [facility] Comment on above: Performed By: #### M G, GFR, ANEU, ADIFF, CBC, CMP, A1C, LIPID #### [place] [id number] Sodium [Moles/Vol] 137 mmol/L Normal 136-[address] [facility] Comment on above: Performed By: #### M G, GFR, ANEU, ADIFF, CBC, CMP, A1C, LIPID #### [place] [id number] Urea nitrogen [Mass/Vol] 8.0 mg/dL Normal 8.0-22.0 [facility] Comment on above: Performed By: #### M G, GFR, ANEU, ADIFF, CBC, CMP, A1C, LIPID #### [address] [address] CBCon 10-19-2024 Erythrocyte distribution width (RBC) [Ratio] 17.3 % High 11.5-15.5 [facility] Comment on above: Performed By: #### M G, GFR, ANEU, ADIFF, CBC, CMP, A1C, LIPID #### [place] [id number] Hematocrit (Bld) [Volume fraction] 40.5 % Normal 40.0-52.0 [facility] Comment on above: Performed By: #### M G, GFR, ANEU, ADIFF, CBC, CMP, A1C, LIPID #### [place] [address] Hgb 13.0 G/dL Normal 13.0-17.5 [facility] Comment on above: Performed By: #### M G, GFR, ANEU, ADIFF, CBC, CMP, A1C, LIPID #### [place] [address] MCH (RBC) [Entitic mass] 28.6 pg Normal 27.0-33.0 [facility] Comment on above: Performed By: #### M G, GFR, ANEU, ADIFF, CBC, CMP, A1C, LIPID #### [place] [address] MCHC 32.1 G/dL Normal 32.0-36.0 [facility] Comment on above: Performed By: #### M G, GFR, ANEU, ADIFF, CBC, CMP, A1C, LIPID #### [place] [address] MCV (RBC) [Entitic vol] 89.2 fL Normal 81.0-100.0 [facility] Comment on above: Performed By: #### M G, GFR, ANEU, ADIFF, CBC, CMP, A1C, LIPID #### [place] [address] Platelet 171 10 3/mcL Normal 150-450 [facility] Comment on above: Performed By: #### M G, GFR, ANEU, ADIFF, CBC, CMP, A1C, LIPID #### [place] [address] Platelet mean volume (Bld) [Entitic vol] 7.6 fL Normal 6.4-10.5 [facility] Comment on above: Performed By: #### M G, GFR, ANEU, ADIFF, CBC, CMP, A1C, LIPID #### [place] [address] RBC 4.54 10 6/mcL Normal 4.50-6.00 [facility] Comment on above: Performed By: #### M G, GFR, ANEU, ADIFF, CBC, CMP, A1C, LIPID #### [address] [address] WBC 5.4 10 3/mcL Normal 4.5-10.8 [facility] Comment on above: Performed By: #### M G, GFR, ANEU, ADIFF, CBC, CMP, A1C, LIPID #### [address] [address] LABORATORYOrdered By: SYSTEM SYSTEM on 10-19-2024 Basophils [...] above: Interpretive Data: T esting performed on [employer] analyzer using enzymatic creatinine methodology. Electrolyte Balance [...] 181 mg/dL High 70 - 110 mg/dL AH ADM SS Hematocrit (Bld) [Volume fraction] 40.5 [...] Basophil, Absolute 0.0 10 3/mcL Normal 0.0-0.3 [facility] Comment on above: Performed By: #### M G, GFR, ANEU, ADIFF, CBC, CMP, A1C, LIPID #### [address] [address] Basophils/100 WBC (Bld) 0.6 % Normal 0.0-2.5 [facility] Comment on above: Performed By: #### M G, GFR, ANEU, ADIFF, CBC, CMP, A1C, LIPID #### [address] [address] Eosinophil, Absolute 0.1 10 3/mcL Normal 0.0-0.7 [facility] Comment on above: Performed By: #### M G, GFR, ANEU, ADIFF, CBC, CMP, A1C, LIPID #### [address] [address] Eosinophils/100 WBC (Bld) 1.7 % Normal 0.0-6.0 [facility] Comment on above: Performed By: #### M G, GFR, ANEU, ADIFF, CBC, CMP, A1C, LIPID #### [address] [id number] Lymphocyte, Absolute 1.2 10 3/mcL Normal 0.9-4.3 [facility] Comment on above: Performed By: #### M G, GFR, ANEU, ADIFF, CBC, CMP, A1C, LIPID #### [address] [id number] Lymphocytes/100 WBC (Bld) 19.0 % Low 20.0-40.0 [facility] Comment on above: Performed By: #### M G, GFR, ANEU, ADIFF, CBC, CMP, A1C, LIPID #### [address] [id number] Monocyte, Absolute 0.9 10 3/mcL Normal 0.1-1.4 [facility] Comment on above: Performed By: #### M G, GFR, ANEU, ADIFF, CBC, CMP, A1C, LIPID #### [address] [id number] Monocytes/100 WBC (Bld) 14.1 % High 2.0-13.0 [facility] Comment on above: Performed By: #### M G, GFR, ANEU, ADIFF, CBC, CMP, A1C, LIPID #### [address] [id number] Neutrophils/100 WBC (Bld) 64.6 % Normal 50.0-75.0 [facility] Comment on above: Performed By: #### M G, GFR, ANEU, ADIFF, CBC, CMP, A1C, LIPID #### [address] [address] Basophil, Absolute 0.0 10 3/mcL Normal 0.0-0.3 [facility] Comment on above: Performed By: #### M G, GFR, ANEU, ADIFF, CBC, CMP, A1C, LIPID #### [address] [id number] Basophils/100 WBC (Bld) 0.4 % Normal 0.0-2.5 [facility] Comment on above: Performed By: #### M G, GFR, ANEU, ADIFF, CBC, CMP, A1C, LIPID #### [address] [id number] Eosinophil, Absolute 0.1 10 3/mcL Normal 0.0-0.7 [facility] Comment on above: Performed By: #### M G, GFR, ANEU, ADIFF, CBC, CMP, A1C, LIPID #### [address] [id number] Eosinophils/100 WBC (Bld) 1.2 % Normal 0.0-6.0 [facility] Comment on above: Performed By: #### M G, GFR, ANEU, ADIFF, CBC, CMP, A1C, LIPID #### [address] [address] Lymphocyte, Absolute 0.7 10 3/mcL Low 0.9-4.3 [facility] Comment on above: Performed By: #### M G, GFR, ANEU, ADIFF, CBC, CMP, A1C, LIPID #### [address] [address] Lymphocytes/100 WBC (Bld) 16.1 % Low 20.0-40.0 [facility] Comment on above: Performed By: #### M G, GFR, ANEU, ADIFF, CBC, CMP, A1C, LIPID #### [address] [address] Monocyte, Absolute 0.5 10 3/mcL Normal 0.1-1.4 [facility] Comment on above: Performed By: #### M G, GFR, ANEU, ADIFF, CBC, CMP, A1C, LIPID #### [address] [address] Monocytes/100 WBC (Bld) 11.8 % Normal 2.0-13.0 [facility] Comment on above: Performed By: #### M G, GFR, ANEU, ADIFF, CBC, CMP, A1C, LIPID #### [address] [address] Neutrophils/100 WBC (Bld) 70.5 % Normal 50.0-75.0 [facility] Comment on above: Performed By: #### M G, GFR, ANEU, ADIFF, CBC, CMP, A1C, LIPID #### [address] [address] .GFRon 10-18-2024 Estimated Glomerular Filtration Rate 112 ml/min/1.73sqm Normal [facility] Comment on above: Result Comment: [...] ANEU, ADIFF, CBC, CMP, A1C, LIPID #### [place] [address] Estimated Glomerular Filtration Rate 114 ml/min/1.73sqm Normal [facility] Comment on above: Result Comment: [...] ANEU, ADIFF, CBC, CMP, A1C, LIPID #### [place] [address] .NEUABSon 10-18-2024 Neutrophil, Absolute 3.9 10 3/mcL Normal 2.3-8.1 [facility] Comment on above: Performed By: #### M G, GFR, ANEU, ADIFF, CBC, CMP, A1C, LIPID #### [place] [address] Neutrophil, Absolute 3.3 10 3/mcL Normal 2.3-8.1 [facility] Comment on above: Performed By: #### M G, GFR, ANEU, ADIFF, CBC, CMP, A1C, LIPID #### [place] [id number] BMPon 10-18-2024 BUN/Creatinine Ratio 9.0 ratio Low 10.0-22.0 [facility] Comment on above: Performed By: #### M G, GFR, ANEU, ADIFF, CBC, CMP, A1C, LIPID #### [address] [address] Calcium [Mass/Vol] 8.7 mg/dL Normal 8.7-10.[address] [facility] Comment on above: Performed By: #### M G, GFR, ANEU, ADIFF, CBC, CMP, A1C, LIPID #### [address] [address] Chloride [Moles/Vol] 99 mmol/L Normal 98-110 [facility] Comment on above: Performed By: #### M G, GFR, ANEU, ADIFF, CBC, CMP, A1C, LIPID #### [address] [address] CO2 [Moles/Vol] 33 mmol/L High 22-32 [facility] Comment on above: Performed By: #### M G, GFR, ANEU, ADIFF, CBC, CMP, A1C, LIPID #### [address] [address] Creatinine [Mass/Vol] 0.67 mg/dL Normal 0.60-1.40 [facility] Comment on above: Result Comment: Test ing performed on [employer] analyzer using enzymatic creatinine methodology. Performed By: #### M G, GFR, ANEU, ADIFF, CBC, CMP, A1C, LIPID #### [address] [address] Electrolyte Balance 5.0 mEq/L Normal 4.0-15.0 [facility] Comment on above: Performed By: #### M G, GFR, ANEU, ADIFF, CBC, CMP, A1C, LIPID #### [address] [address] Glucose [Mass/Vol] 115 mg/dL High 70-[address] [facility] Comment on above: Performed By: #### M G, GFR, ANEU, ADIFF, CBC, CMP, A1C, LIPID #### [address] [address] Potassium [Moles/Vol] 3.4 mmol/L Low 3.5-5.0 [facility] Comment on above: Performed By: #### M G, GFR, ANEU, ADIFF, CBC, CMP, A1C, LIPID #### [address] [address] Sodium [Moles/Vol] 137 mmol/L Normal 136-[address] [facility] Comment on above: Performed By: #### M G, GFR, ANEU, ADIFF, CBC, CMP, A1C, LIPID #### [address] [address] Urea nitrogen [Mass/Vol] 6.0 mg/dL Low 8.0-22.0 [facility] Comment on above: Performed By: #### M G, GFR, ANEU, ADIFF, CBC, CMP, A1C, LIPID #### [address] [address] BUN/Creatinine Ratio Unable to Calculate Normal 10.0-2 2.0 [facility] Comment on above: Order Comment: Pleas e draw daily labs at 3 AM for 3 days Result Comment: Unab le to calculate this test result accurately. Results used to calculate this test are outside the reportable range. Performed By: #### M G, GFR, ANEU, ADIFF, CBC, CMP, A1C, LIPID #### [address] [address] Urea nitrogen [Mass/Vol] mg/dL Low 8.0-22.0 [facility] Comment on above: Order Comment: Pleas e draw daily labs at 3 AM for 3 days Performed By: #### M G, GFR, ANEU, ADIFF, CBC, CMP, A1C, LIPID #### [address] [address] Calcium [Mass/Vol] 9.2 mg/dL Normal 8.7-10.[address] [facility] Comment on above: Order Comment: Pleas e draw daily labs at 3 AM for 3 days Performed By: #### M G, GFR, ANEU, ADIFF, CBC, CMP, A1C, LIPID #### [address] [address] Chloride [Moles/Vol] 101 mmol/L Normal 98-110 [facility] Comment on above: Order Comment: Pleas e draw daily labs at 3 AM for 3 days Performed By: #### M G, GFR, ANEU, ADIFF, CBC, CMP, A1C, LIPID #### [address] [address] CO2 [Moles/Vol] 33 mmol/L High 22-32 [facility] Comment on above: Order Comment: Pleas e draw daily labs at 3 AM for 3 days Performed By: #### M G, GFR, ANEU, ADIFF, CBC, CMP, A1C, LIPID #### [address] [address] Creatinine [Mass/Vol] 0.63 mg/dL Normal 0.60-1.40 [facility] Comment on above: Order Comment: Pleas e draw daily labs at 3 AM for 3 days Result Comment: Test ing performed on [employer] analyzer using enzymatic creatinine methodology. Performed By: #### M G, GFR, ANEU, ADIFF, CBC, CMP, A1C, LIPID #### [address] [address] Electrolyte Balance 5.0 mEq/L Normal 4.0-15.0 [facility] Comment on above: Order Comment: Pleas e draw daily labs at 3 AM for 3 days Performed By: #### M G, GFR, ANEU, ADIFF, CBC, CMP, A1C, LIPID #### [address] [address] Glucose [Mass/Vol] 110 mg/dL Normal 70-[address] [facility] Comment on above: Order Comment: Pleas e draw daily labs at 3 AM for 3 days Performed By: #### M G, GFR, ANEU, ADIFF, CBC, CMP, A1C, LIPID #### [address] [address] Potassium [Moles/Vol] 3.6 mmol/L Normal 3.5-5.0 [facility] Comment on above: Order Comment: Pleas e draw daily labs at 3 AM for 3 days Performed By: #### M G, GFR, ANEU, ADIFF, CBC, CMP, A1C, LIPID #### [address] [address] Sodium [Moles/Vol] 139 mmol/L Normal 136-[address] [facility] Comment on above: Order Comment: Mer gao draw daily labs at 3 AM for 3 days Performed By: #### M G, GFR, ANEU, ADIFF, CBC, CMP, A1C, LIPID #### [address] [address] CBCon 10-18-2024 Erythrocyte distribution width (RBC) [Ratio] 17.3 % High 11.5-15.5 [facility] Comment on above: Performed By: #### M G, GFR, ANEU, ADIFF, CBC, CMP, A1C, LIPID #### [place] [address] Hematocrit (Bld) [Volume fraction] 41.4 % Normal 40.0-52.0 [facility] Comment on above: Performed By: #### M G, GFR, ANEU, ADIFF, CBC, CMP, A1C, LIPID #### [place] [address] Hgb 13.5 G/dL Normal 13.0-17.5 [facility] Comment on above: Performed By: #### M G, GFR, ANEU, ADIFF, CBC, CMP, A1C, LIPID #### [place] [address] MCH (RBC) [Entitic mass] 28.9 pg Normal 27.0-33.0 [facility] Comment on above: Performed By: #### M G, GFR, ANEU, ADIFF, CBC, CMP, A1C, LIPID #### [place] [address] MCHC 32.7 G/dL Normal 32.0-36.0 [facility] Comment on above: Performed By: #### M G, GFR, ANEU, ADIFF, CBC, CMP, A1C, LIPID #### [place] [address] MCV (RBC) [Entitic vol] 88.4 fL Normal 81.0-100.0 [facility] Comment on above: Performed By: #### M G, GFR, ANEU, ADIFF, CBC, CMP, A1C, LIPID #### [place] [id number] Platelet 158 10 3/mcL Normal 150-450 [facility] Comment on above: Performed By: #### M G, GFR, ANEU, ADIFF, CBC, CMP, A1C, LIPID #### [place] [address] Platelet mean volume (Bld) [Entitic vol] 7.9 fL Normal 6.4-10.5 [facility] Comment on above: Performed By: #### M G, GFR, ANEU, ADIFF, CBC, CMP, A1C, LIPID #### [place] [id number] RBC 4.68 10 6/mcL Normal 4.50-6.00 [facility] Comment on above: Performed By: #### M G, GFR, ANEU, ADIFF, CBC, CMP, A1C, LIPID #### [place] [id number] WBC 6.1 10 3/mcL Normal 4.5-10.8 [facility] Comment on above: Performed By: #### M G, GFR, ANEU, ADIFF, CBC, CMP, A1C, LIPID #### [place] [id number] Erythrocyte distribution width (RBC) [Ratio] 16.9 % High 11.5-15.5 [facility] Comment on above: Order Comment: Colle ct blood every day at 3 AM for the next 3 days. Performed By: #### M G, GFR, ANEU, ADIFF, CBC, CMP, A1C, LIPID #### [place] [address] Hematocrit (Bld) [Volume fraction] 41.4 % Normal 40.0-52.0 [facility] Comment on above: Order Comment: Colle ct blood every day at 3 AM for the next 3 days. Performed By: #### M G, GFR, ANEU, ADIFF, CBC, CMP, A1C, LIPID #### [place] [address] Hgb 13.6 G/dL Normal 13.0-17.5 [facility] Comment on above: Order Comment: Colle ct blood every day at 3 AM for the next 3 days. Performed By: #### M G, GFR, ANEU, ADIFF, CBC, CMP, A1C, LIPID #### [place] [address] MCH (RBC) [Entitic mass] 29.0 pg Normal 27.0-33.0 [facility] Comment on above: Order Comment: Colle ct blood every day at 3 AM for the next 3 days. Performed By: #### M G, GFR, ANEU, ADIFF, CBC, CMP, A1C, LIPID #### [place] [address] MCHC 32.8 G/dL Normal 32.0-36.0 [facility] Comment on above: Order Comment: Colle ct blood every day at 3 AM for the next 3 days. Performed By: #### M G, GFR, ANEU, ADIFF, CBC, CMP, A1C, LIPID #### [place] [address] MCV (RBC) [Entitic vol] 88.3 fL Normal 81.0-100.0 [facility] Comment on above: Order Comment: Colle ct blood every day at 3 AM for the next 3 days. Performed By: #### M G, GFR, ANEU, ADIFF, CBC, CMP, A1C, LIPID #### [place] [address] Platelet 127 10 3/mcL Low 150-450 [facility] Comment on above: Order Comment: Colle ct blood every day at 3 AM for the next 3 days. Performed By: #### M G, GFR, ANEU, ADIFF, CBC, CMP, A1C, LIPID #### [place] [address] Platelet mean volume (Bld) [Entitic vol] 7.7 fL Normal 6.4-10.5 [facility] Comment on above: Order Comment: Colle ct blood every day at 3 AM for the next 3 days. Performed By: #### M G, GFR, ANEU, ADIFF, CBC, CMP, A1C, LIPID #### [place] [address] RBC 4.70 10 6/mcL Normal 4.50-6.00 [facility] Comment on above: Order Comment: Colle ct blood every day at 3 AM for the next 3 days. Performed By: #### M G, GFR, ANEU, ADIFF, CBC, CMP, A1C, LIPID #### [facility] [address] [place] [address] WBC 4.6 10 3/mcL Normal 4.5-10.8 [facility] Comment on above: Order Comment: Colle ct blood every day at 3 AM for the next 3 days. Performed By: #### M G, GFR, ANEU, ADIFF, CBC, CMP, A1C, LIPID #### [place] [id number] [address] [place] [id number] LABORATORYOrdered By: SYSTEM SYSTEM on 10-18-2024 Basophils [...] above: Interpretive Data: T esting performed on [employer] analyzer using enzymatic creatinine methodology. Electrolyte Balance [...] Basophil, Absolute 0.0 10 3/mcL Normal 0.0-0.3 [facility] Comment on above: Performed By: #### M G, GFR, ANEU, ADIFF, CBC, CMP, A1C, LIPID #### [address] [address] Basophils/100 WBC (Bld) 0.6 % Normal 0.0-2.5 [facility] Comment on above: Performed By: #### M G, GFR, ANEU, ADIFF, CBC, CMP, A1C, LIPID #### [address] [address] Eosinophil, Absolute 0.1 10 3/mcL Normal 0.0-0.7 [facility] Comment on above: Performed By: #### M G, GFR, ANEU, ADIFF, CBC, CMP, A1C, LIPID #### [address] [address] Eosinophils/100 WBC (Bld) 1.1 % Normal 0.0-6.0 [facility] Comment on above: Performed By: #### M G, GFR, ANEU, ADIFF, CBC, CMP, A1C, LIPID #### [address] [address] Lymphocyte, Absolute 0.9 10 3/mcL Normal 0.9-4.3 [facility] Comment on above: Performed By: #### M G, GFR, ANEU, ADIFF, CBC, CMP, A1C, LIPID #### [address] [address] Lymphocytes/100 WBC (Bld) 17.7 % Low 20.0-40.0 [facility] Comment on above: Performed By: #### M G, GFR, ANEU, ADIFF, CBC, CMP, A1C, LIPID #### [address] [address] Monocyte, Absolute 0.6 10 3/mcL Normal 0.1-1.4 [facility] Comment on above: Performed By: #### M G, GFR, ANEU, ADIFF, CBC, CMP, A1C, LIPID #### [address] [address] Monocytes/100 WBC (Bld) 11.1 % Normal 2.0-13.0 [facility] Comment on above: Performed By: #### M G, GFR, ANEU, ADIFF, CBC, CMP, A1C, LIPID #### [address] [address] Neutrophils/100 WBC (Bld) 69.5 % Normal 50.0-75.0 [facility] Comment on above: Performed By: #### M G, GFR, ANEU, ADIFF, CBC, CMP, A1C, LIPID #### [address] [address] .GFRon 10-17-2024 Estimated Glomerular Filtration Rate 113 ml/min/1.73sqm Normal [facility] Comment on above: Result Comment: [...] CMP, A1C, LIPID #### [facility] [address] [place], [place] [address] .NEUABSon 10-17-2024 Neutrophil, Absolute 3.7 10 3/mcL Normal 2.3-8.1 [facility] Comment on above: Performed By: #### M G, GFR, ANEU, ADIFF, CBC, CMP, A1C, LIPID #### [address] [address] BMPon 10-17-2024 BUN/Creatinine Ratio 7.7 ratio Low 10.0-22.0 [facility] Comment on above: Performed By: #### M G, GFR, ANEU, ADIFF, CBC, CMP, A1C, LIPID #### [place] [address] Calcium [Mass/Vol] 8.5 mg/dL Low 8.7-10.[address] [facility] Comment on above: Performed By: #### M G, GFR, ANEU, ADIFF, CBC, CMP, A1C, LIPID #### [place] [address] Chloride [Moles/Vol] 101 mmol/L Normal 98-110 [facility] Comment on above: Performed By: #### M G, GFR, ANEU, ADIFF, CBC, CMP, A1C, LIPID #### [place] [address] CO2 [Moles/Vol] 31 mmol/L Normal 22-32 [facility] Comment on above: Performed By: #### M G, GFR, ANEU, ADIFF, CBC, CMP, A1C, LIPID #### [place] [address] Creatinine [Mass/Vol] 0.65 mg/dL Normal 0.60-1.40 [facility] Comment on above: Result Comment: Test ing performed on [employer] analyzer using enzymatic creatinine methodology. Performed By: #### M G, GFR, ANEU, ADIFF, CBC, CMP, A1C, LIPID #### [place] [address] Electrolyte Balance 7.0 mEq/L Normal 4.0-15.0 [facility] Comment on above: Performed By: #### M G, GFR, ANEU, ADIFF, CBC, CMP, A1C, LIPID #### [place] [id number] Glucose [Mass/Vol] 120 mg/dL High 70-[address] [facility] Comment on above: Performed By: #### M G, GFR, ANEU, ADIFF, CBC, CMP, A1C, LIPID #### [place] [id number] Potassium [Moles/Vol] 3.3 mmol/L Low 3.5-5.0 [facility] Comment on above: Performed By: #### M G, GFR, ANEU, ADIFF, CBC, CMP, A1C, LIPID #### [place] [id number] Sodium [Moles/Vol] 139 mmol/L Normal 136-[address] [facility] Comment on above: Performed By: #### M G, GFR, ANEU, ADIFF, CBC, CMP, A1C, LIPID #### [place] [address] Urea nitrogen [Mass/Vol] 5.0 mg/dL Low 8.0-22.0 [facility] Comment on above: Performed By: #### M G, GFR, ANEU, ADIFF, CBC, CMP, A1C, LIPID #### [address] [address] CBCon 10-17-2024 Erythrocyte distribution width (RBC) [Ratio] 17.0 % High 11.5-15.5 [facility] Comment on above: Performed By: #### M G, GFR, ANEU, ADIFF, CBC, CMP, A1C, LIPID #### [place] [id number] Hematocrit (Bld) [Volume fraction] 40.3 % Normal 40.0-52.0 [facility] Comment on above: Performed By: #### M G, GFR, ANEU, ADIFF, CBC, CMP, A1C, LIPID #### [place] [id number] Hgb 13.2 G/dL Normal 13.0-17.5 [facility] Comment on above: Performed By: #### M G, GFR, ANEU, ADIFF, CBC, CMP, A1C, LIPID #### [place] [address] MCH (RBC) [Entitic mass] 28.6 pg Normal 27.0-33.0 [facility] Comment on above: Performed By: #### M G, GFR, ANEU, ADIFF, CBC, CMP, A1C, LIPID #### [place] [id number] MCHC 32.6 G/dL Normal 32.0-36.0 [facility] Comment on above: Performed By: #### M G, GFR, ANEU, ADIFF, CBC, CMP, A1C, LIPID #### [place] [address] MCV (RBC) [Entitic vol] 87.6 fL Normal 81.0-100.0 [facility] Comment on above: Performed By: #### M G, GFR, ANEU, ADIFF, CBC, CMP, A1C, LIPID #### [place] [address] Platelet 132 10 3/mcL Low 150-450 [facility] Comment on above: Performed By: #### M G, GFR, ANEU, ADIFF, CBC, CMP, A1C, LIPID #### [place] [address] Platelet mean volume (Bld) [Entitic vol] 7.8 fL Normal 6.4-10.5 [facility] Comment on above: Performed By: #### M G, GFR, ANEU, ADIFF, CBC, CMP, A1C, LIPID #### [place] [address] RBC 4.60 10 6/mcL Normal 4.50-6.00 [facility] Comment on above: Performed By: #### M G, GFR, ANEU, ADIFF, CBC, CMP, A1C, LIPID #### [place] [address] WBC 5.4 10 3/mcL Normal 4.5-10.8 [facility] Comment on above: Performed By: #### M G, GFR, ANEU, ADIFF, CBC, CMP, A1C, LIPID #### [place] [address] CT ANKLE W/O CONTRAST RIGHTo n 10-17-2024 [...] spanning external fixator, multiplanar 10/17. transfer from [facility]. for right ankle fracture with [...] Date: 10/17/2024 1:17:29 PM Ordering Provider: TARA DANICA [facility] MAIN LABORATORYOrdered By: SYSTEM SYSTEM on [...] Comment on above: Interpretive Data: T temitope [employer] (CHEST, 1991, 102:[id number]) recommended therapeutic range for oral anticoagulant therapy is: LOW RISK: Prophylaxis of venous thrombosis INR: 2.0-3.0 Treatment of pulmonary embolism 2.0-3.0 Prevention of systemic embolism 2.0-3.0 HIGH RISK: Mechanical prosthetic valves 2.5-3.5 PROon 10-17-2024 INR Coag (PPP) [Relative time] 1.2 {INR} [facility] Comment on above: Result Comment: [employer] (CHEST, 1991, 102:[id number]) recommended therapeutic range for oral anticoagulant therapy is: LOW RISK: Prophylaxis of venous thrombosis INR: 2.0-3.0 Treatment of pulmonary embolism 2.0-3.0 Prevention of systemic embolism 2.0-3.0 HIGH RISK: Mechanical prosthetic valves 2.5-3.5 Performed By: #### M G, GFR, ANEU, ADIFF, CBC, CMP, A1C, LIPID #### [address] [address] PT Coag (PPP) [Time] 13.7 s Normal 9.0-14.4 [facility] Comment on above: Result Comment: Effe ctive 12/11/07, Protime results may be affected by some antibiotics (i.e. Ciprofloxacin, Azithromycin, Bactrim) which may potentiate the action of oral anticoagulants, with further increases in Protime/INR. Performed By: #### M G, GFR, ANEU, ADIFF, CBC, CMP, A1C, LIPID #### [address] [address] XR FLUORO 1-2 HRS TECH TIMEo n [...] Intraoperative fluoroscopic images. Please refer to the batt machine operator's report for further information. I have personally reviewed the images of this examination and agree with the resident's findings and interpretation. Interpreted by: Corey Wahl Preliminary Report By: Nadya Hudson Electronically signed By Corey Wahl Dictated Date: 10/17/2024 1:42:02 PM Prelim Date: 10/17/2024 2:15:08 PM Sign Date: 10/17/2024 2:15:08 PM Ordering Provider: NANI Kate [facility] .Auto Diffon 10-16-2024 Basophil, Absolute 0.1 10 3/mcL Normal 0.0-0.3 [facility] Comment on above: Performed By: #### C LILIANA DAMICO MDW, ADIFF #### [address] [address] Basophils/100 WBC (Bld) 0.8 % Normal 0.0-2.5 [facility] Comment on above: Performed By: #### C LILIANA DAMICO MDW, ADIFF #### [address] [address] Eosinophil, Absolute 0.1 10 3/mcL Normal 0.0-0.7 [facility] Comment on above: Performed By: #### C LILIANA DAMICO MDW, ADIFF #### [address] [address] Eosinophils/100 WBC (Bld) 1.2 % Normal 0.0-6.0 [facility] Comment on above: Performed By: #### C LILIANA DAMICO MDW, ADIFF #### [address] [address] Lymphocyte, Absolute 1.4 10 3/mcL Normal 0.9-4.3 [facility] Comment on above: Performed By: #### C LILIANA DAMICO MDW, ADIFF #### [address] [address] Lymphocytes/100 WBC (Bld) 19.8 % Low 20.0-40.0 [facility] Comment on above: Performed By: #### C LILIANA DAMICO MDW, ADIFF #### [address] [address] Monocyte, Absolute 0.7 10 3/mcL Normal 0.1-1.4 [facility] Comment on above: Performed By: #### C LILIANA DAMICO MDW, ADIFF #### [address] [address] Monocytes/100 WBC (Bld) 10.7 % Normal 2.0-13.0 [facility] Comment on above: Performed By: #### C LILIANA DAMICO MDW, ADIFF #### [address] [address] Neutrophils/100 WBC (Bld) 67.5 % Normal 50.0-75.0 [facility] Comment on above: Performed By: #### C LILIANA DAMICO MDW, ADIFF #### [address] [address] Basophil, Absolute 0.0 10 3/mcL Normal 0.0-0.3 [facility] Comment on above: Performed By: #### M G, GFR, ANEU, ADIFF, CBC, CMP, A1C, LIPID #### [address] [address] Basophils/100 WBC (Bld) 0.7 % Normal 0.0-2.5 [facility] Comment on above: Performed By: #### M G, GFR, ANEU, ADIFF, CBC, CMP, A1C, LIPID #### [address] [address] Eosinophil, Absolute 0.1 10 3/mcL Normal 0.0-0.7 [facility] Comment on above: Performed By: #### M G, GFR, ANEU, ADIFF, CBC, CMP, A1C, LIPID #### [address] [address] Eosinophils/100 WBC (Bld) 0.8 % Normal 0.0-6.0 [facility] Comment on above: Performed By: #### M G, GFR, ANEU, ADIFF, CBC, CMP, A1C, LIPID #### [address] [address] Lymphocyte, Absolute 1.1 10 3/mcL Normal 0.9-4.3 [facility] Comment on above: Performed By: #### M G, GFR, ANEU, ADIFF, CBC, CMP, A1C, LIPID #### [address] [address] Lymphocytes/100 WBC (Bld) 17.2 % Low 20.0-40.0 [facility] Comment on above: Performed By: #### M G, GFR, ANEU, ADIFF, CBC, CMP, A1C, LIPID #### [address] [address] Monocyte, Absolute 0.6 10 3/mcL Normal 0.1-1.4 [facility] Comment on above: Performed By: #### M G, GFR, ANEU, ADIFF, CBC, CMP, A1C, LIPID #### [address] [id number] Monocytes/100 WBC (Bld) 8.7 % Normal 2.0-13.0 [facility] Comment on above: Performed By: #### M G, GFR, ANEU, ADIFF, CBC, CMP, A1C, LIPID #### [address] [id number] Neutrophils/100 WBC (Bld) 72.6 % Normal 50.0-75.0 [facility] Comment on above: Performed By: #### M G, GFR, ANEU, ADIFF, CBC, CMP, A1C, LIPID #### [address] [id number] .GFRon 10-16-2024 Estimated Glomerular Filtration Rate 110 ml/min/1.73sqm Normal [facility] Comment on above: Result Comment: [...] ANEU, ADIFF, CBC, CMP, A1C, LIPID #### [place] [id number] Estimated Glomerular Filtration Rate 111 ml/min/1.73sqm [facility] Comment on above: Result Comment: Stages [...] ANEU, ADIFF, CBC, CMP, A1C, LIPID #### [address] [id number] .MDWon 10-16-2024 Monocyte Distribution Width 19.45 Normal 0.00-20.00 [facility] Comment on above: Result Comment: For ED adult patients suspected of sepsis, MDW<=20.0 does not rule out sepsis or risk of sepsis Performed By: #### M G, GFR, ANEU, ADIFF, CBC, CMP, A1C, LIPID #### [address] [id number] Monocyte Distribution Width 17.52 Normal 0.00-20.00 [facility] Comment on above: Result Comment: For ED adult patients suspected of sepsis, MDW<=20.0 does not rule out sepsis or risk of sepsis Performed By: #### M G, GFR, ANEU, ADIFF, CBC, CMP, A1C, LIPID #### [address] [id number] .NEUABSon 10-16-2024 Neutrophil, Absolute 4.7 10 3/mcL Normal 2.3-8.1 [facility] Comment on above: Performed By: #### M G, GFR, ANEU, ADIFF, CBC, CMP, A1C, LIPID #### [place] [address] Neutrophil, Absolute 4.7 10 3/mcL Normal 2.3-8.1 [facility] Comment on above: Performed By: #### M G, GFR, ANEU, ADIFF, CBC, CMP, A1C, LIPID #### [place] [id number] ABO/Rh (Gel)on 10-16-2024 ABO/Rh Interp Positive Invalid Interpretation Code [facility] Comment on above: Performed By: #### M G, GFR, ANEU, ADIFF, CBC, CMP, A1C, LIPID #### [place] [id number] ABS (Gel)on 10-16-2024 ABSC Interp (Gel) Negative Normal [facility] Comment on above: Performed By: #### M G, GFR, ANEU, ADIFF, CBC, CMP, A1C, LIPID #### [place] [id number] Stefanie 10-16-2024 Ethanol Level <10.0 Normal [facility] Comment on above: Performed By: #### M G, GFR, ANEU, ADIFF, CBC, CMP, A1C, LIPID #### [place] [id number] ANKLE COMPLETE RTon 10-17-19 ANKLE COMPLETE RT [place] [address] Patient: SOCORRO KELLEY Phone#: : [phone] Age: 54 Gender: M Pt. Type: ER Account: [id number] Location: [facility] Ordering: JAKE MAXWELL Exam Date: 10/16/2024/13:23 Family Phys: Charge Code: [id number] Physician: [place] Order #: [id number] Dose#: PROCEDURE: X-RAY ANKLE COMPLETE RT MIN [...] Bagley MD on 10/16/2024 at 14:15 [facility]/Creatinine Ratio 15.9 ratio Normal 10.0-22.0 [facility] Comment on above: Performed By: #### M G, GFR, ANEU, ADIFF, CBC, CMP, A1C, LIPID #### [address] [address] Calcium [Mass/Vol] 9.4 mg/dL Normal 8.7-10.[address] [facility] Comment on above: Performed By: #### M G, GFR, ANEU, ADIFF, CBC, CMP, A1C, LIPID #### [address] [address] Chloride [Moles/Vol] 103 mmol/L Normal 98-110 [facility] Comment on above: Performed By: #### M G, GFR, ANEU, ADIFF, CBC, CMP, A1C, LIPID #### [address] [address] CO2 [Moles/Vol] 32 mmol/L Normal 22-32 [facility] Comment on above: Performed By: #### M G, GFR, ANEU, ADIFF, CBC, CMP, A1C, LIPID #### [address] [address] Creatinine [Mass/Vol] 0.69 mg/dL Normal 0.60-1.40 [facility] Comment on above: Result Comment: Test ing performed on [employer] analyzer using enzymatic creatinine methodology. Performed By: #### M G, GFR, ANEU, ADIFF, CBC, CMP, A1C, LIPID #### [address] [address] Electrolyte Balance 5.0 mEq/L Normal 4.0-15.0 [facility] Comment on above: Performed By: #### M G, GFR, ANEU, ADIFF, CBC, CMP, A1C, LIPID #### [address] [address] Glucose [Mass/Vol] 94 mg/dL Normal 70-[address] [facility] Comment on above: Performed By: #### M G, GFR, ANEU, ADIFF, CBC, CMP, A1C, LIPID #### [address] [address] Potassium [Moles/Vol] 3.6 mmol/L Normal 3.5-5.0 [facility] Comment on above: Performed By: #### M G, GFR, ANEU, ADIFF, CBC, CMP, A1C, LIPID #### [address] [address] Sodium [Moles/Vol] 140 mmol/L Normal 136-[address] [facility] Comment on above: Performed By: #### M G, GFR, ANEU, ADIFF, CBC, CMP, A1C, LIPID #### [address] [address] Urea nitrogen [Mass/Vol] 11.0 mg/dL Normal 8.0-22.0 [facility] Comment on above: Performed By: #### M GCORRIE, LILIANA, ESSIE, CBC, CMP, A1C, LIPID #### [place] [id number] CBCon 10-16-2024 Erythrocyte distribution width (RBC) [Ratio] 16.5 % High 11.5-15.5 [facility] Comment on above: Performed By: #### C LILIANA DAMICO MDW, ADIFF #### [place] [address] Hematocrit (Bld) [Volume fraction] 45.2 % Normal 40.0-52.0 [facility] Comment on above: Performed By: #### C LILIANA DAMICO MDW, ADIFF #### [place] [address] Hgb 14.8 G/dL Normal 13.0-17.5 [facility] Comment on above: Performed By: #### C LILIANA DAMICO MDW, ADIFF #### [place] [address] MCH (RBC) [Entitic mass] 28.8 pg Normal 27.0-33.0 [facility] Comment on above: Performed By: #### C LILIANA DAMICO MDW, ADIFF #### [place] [address] MCHC 32.8 G/dL Normal 32.0-36.0 [facility] Comment on above: Performed By: #### C LILIANA DAMICO MDW, ADIFF #### [place] [id number] MCV (RBC) [Entitic vol] 87.8 fL Normal 81.0-100.0 [facility] Comment on above: Performed By: #### C LILIANA DAMICO MDW, ADIFF #### [place] [id number] Platelet 172 10 3/mcL Normal 150-450 [facility] Comment on above: Performed By: #### C LILIANA DAMICO MDW, ADIFF #### [place] [address] Platelet mean volume (Bld) [Entitic vol] 7.9 fL Normal 6.4-10.5 [facility] Comment on above: Performed By: #### C LILIANA DAMICO MDW, ADIFF #### [address] [address] RBC 5.14 10 6/mcL Normal 4.50-6.00 [facility] Comment on above: Performed By: #### C LILIANA DAMICO MDW, ADIFF #### [address] [address] WBC 6.9 10 3/mcL Normal 4.5-10.8 [facility] Comment on above: Performed By: #### C LILIANA DAMICO MDW, ADIFF #### [place] [id number] Erythrocyte distribution width (RBC) [Ratio] 17.1 % High 11.5-15.5 [facility] Comment on above: Performed By: #### M G, GFR, ANEU, ADIFF, CBC, CMP, A1C, LIPID #### [place] [address] Hematocrit (Bld) [Volume fraction] 43.2 % Normal 40.0-52.0 [facility] Comment on above: Performed By: #### M G, GFR, ANEU, ADIFF, CBC, CMP, A1C, LIPID #### [address] [address] Hgb 14.3 G/dL Normal 13.0-17.5 [facility] Comment on above: Performed By: #### M G, GFR, ANEU, ADIFF, CBC, CMP, A1C, LIPID #### [address] [address] MCH (RBC) [Entitic mass] 28.9 pg Normal 27.0-33.0 [facility] Comment on above: Performed By: #### M G, GFR, ANEU, ADIFF, CBC, CMP, A1C, LIPID #### [place] [id number] MCHC 33.0 G/dL Normal 32.0-36.0 [facility] Comment on above: Performed By: #### M G, GFR, ANEU, ADIFF, CBC, CMP, A1C, LIPID #### [place] [address] MCV (RBC) [Entitic vol] 87.4 fL Normal 81.0-100.0 [facility] Comment on above: Performed By: #### M G, GFR, ANEU, ADIFF, CBC, CMP, A1C, LIPID #### [place] [address] Platelet 152 10 3/mcL Normal 150-450 [facility] Comment on above: Performed By: #### M G, GFR, ANEU, ADIFF, CBC, CMP, A1C, LIPID #### [place] [address] Platelet mean volume (Bld) [Entitic vol] 7.7 fL Normal 6.4-10.5 [facility] Comment on above: Performed By: #### M G, GFR, ANEU, ADIFF, CBC, CMP, A1C, LIPID #### [place] [address] RBC 4.94 10 6/mcL Normal 4.50-6.00 [facility] Comment on above: Performed By: #### M G, GFR, ANEU, ADIFF, CBC, CMP, A1C, LIPID #### [place] [address] WBC 6.5 10 3/mcL Normal 4.5-10.8 [facility] Comment on above: Performed By: #### M G, GFR, ANEU, ADIFF, CBC, CMP, A1C, LIPID #### [place] [address] CBC + DIFFon 10-16-2024 Baso # 0.01 x10EE3/UL Normal 0.00 - 0.10 [facility] Comment on above: Performed By: #### 2 76621 #### [facility],[address] [place] [address] Basophils/100 WBC (Bld) 0.2 % Normal 0.0 - 2.0 [facility] Comment on above: Performed By: #### 2 83958 #### [facility],[address] [place] [address] CBC + DIFF Normal [facility] Comment on above: Result Comment: CBC- COMPLETE BLOOD COUNT Performed By: #### 2 23987 #### [facility],[address] [place] [address] EO # 0.04 x10EE3/UL Normal 0.00 - 0.50 [facility] Comment on above: Performed By: #### 2 18099 #### [facility],[address] [place] [address] Eosinophils/100 WBC (Bld) 0.7 % Normal 0.0 - 7.0 [facility] Comment on above: Performed By: #### 2 86438 #### [facility],[address] [place] [address] Erythrocyte distribution width (RBC) [Ratio] 15.2 % Normal 12.0 - 15.6 [facility] Comment on above: Performed By: #### 2 84888 #### [facility],[address] [place] [address] Hematocrit (Bld) [Volume fraction] 44.1 % Normal 40.0 - 52.0 [facility] Comment on above: Performed By: #### 2 90068 #### [facility],[address] [place] [address] Hemoglobin (Bld) [Mass/Vol] 15.4 g/dL Normal 13.0 - 17.5 [facility] Comment on above: Performed By: #### 2 96087 #### [facility],[address] [place] [address] Lymph # 0.96 x10EE3/UL Normal 0.80 - 2.80 [facility] Comment on above: Performed By: #### 2 45733 #### [facility],[address] [place] [address] Lymphocytes/100 WBC (Bld) 17.1 % Low 20.0 - 45.0 [facility] Comment on above: Performed By: #### 2 54898 #### [facility],[address] [place] [address] MANUAL DIFF N/A Normal [facility] Comment on above: Performed By: #### 2 81022 #### [facility],[address] [place] [address] MCH (RBC) [Entitic mass] 31 pg Normal 27 - 33 [facility] Comment on above: Performed By: #### 2 05026 #### [facility],[address] [place] [address] MCHC 35 X10 3 Normal 32 - 36 [facility] Comment on above: Performed By: #### 2 42139 #### [facility],[address] [place] [address] MCV (RBC) [Entitic vol] 88 fL Normal 81 - 98 [facility] Comment on above: Performed By: #### 2 43433 #### [facility],[address] [place] [address] Rusk # 0.47 x10EE3/UL Normal 0.20 - 1.00 [facility] Comment on above: Performed By: #### 2 70249 #### [facility],[address] [place] [address] MONOS % 8.4 % Normal 0.0 - 10.0 [facility] Comment on above: Performed By: #### 2 38573 #### [facility],[address] [place], [place] [address] Morphology Rocky (Bld) [Interp] N/A Normal [facility] Comment on above: Performed By: #### 2 35648 #### [facility],[address] [place] [address] Neut # 4.12 x10EE3/UL Normal 1.50 - 7.10 [facility] Comment on above: Performed By: #### 2 34956 #### [facility],[address] [place] [address] Neutrophils/100 WBC (Bld) 73.6 % Normal 46.0 - 76.0 [facility] Comment on above: Performed By: #### 2 24003 #### [facility],[address] [place] [address] PLATELET 148 x10EE3/UL Low 150 - 450 [facility] Comment on above: Performed By: #### 2 33325 #### [facility],[address] [place] [address] Platelet mean volume (Bld) [Entitic vol] 8.1 fL Normal 6.4 - 10.5 [facility] Comment on above: Result Comment: AUTO MATED DIFFERENTIAL Performed By: #### 2 01471 #### [facility],[address] [place] [address] RBC 5.02 x 10EE6/UL Normal 4.50 - 6.00 [facility] Comment on above: Performed By: #### 2 37434 #### [facility],[address] [place] [address] WBC 5.6 x 10EE3/UL Normal 4.5 - 10.8 [facility] Comment on above: Performed By: #### 2 35028 #### [facility],[address] [place] [address] CMPon 10-16-2024 Albumin Level 3.6 G/dL Normal 3.2-4.8 [facility] Comment on above: Performed By: #### M G, GFR, ANEU, ADIFF, CBC, CMP, A1C, LIPID #### [address] [address] Albumin/Globulin [Mass ratio] 1.0 {ratio} Normal 0.9-1.6 [facility] Comment on above: Performed By: #### M G, GFR, ANEU, ADIFF, CBC, CMP, A1C, LIPID #### [address] [address] ALP [Catalytic activity/Vol] 70 U/L Normal 38-126 [facility] Comment on above: Performed By: #### M G, GFR, ANEU, ADIFF, CBC, CMP, A1C, LIPID #### [place] [id number] ALT [Catalytic activity/Vol] 12 U/L Normal 12-55 [facility] Comment on above: Performed By: #### M G, GFR, ANEU, ADIFF, CBC, CMP, A1C, LIPID #### [place] [id number] AST [Catalytic activity/Vol] 17 U/L Normal 8-34 [facility] Comment on above: Performed By: #### M G, GFR, ANEU, ADIFF, CBC, CMP, A1C, LIPID #### [place] [id number] Bili Total 0.60 mg/dL Normal 0.20-1.20 [facility] Comment on above: Result Comment: Use of this assay is not recommended for patients undergoing treatment with eltrombopag due to the potential for falsely elevated results. Performed By: #### M G, GFR, ANEU, ADIFF, CBC, CMP, A1C, LIPID #### [place] [address] BUN/Creatinine Ratio 14.1 ratio Normal 10.0-22.0 [facility] Comment on above: Performed By: #### M G, GFR, ANEU, ADIFF, CBC, CMP, A1C, LIPID #### [place] [id number] Calcium [Mass/Vol] 9.0 mg/dL Normal 8.7-10.[address] [facility] Comment on above: Performed By: #### M G, GFR, ANEU, ADIFF, CBC, CMP, A1C, LIPID #### [place] [id number] Chloride [Moles/Vol] 102 mmol/L Normal 98-110 [facility] Comment on above: Performed By: #### M G, GFR, ANEU, ADIFF, CBC, CMP, A1C, LIPID #### [address] [address] CO2 [Moles/Vol] 33 mmol/L High 22-32 [facility] Comment on above: Performed By: #### M G, GFR, ANEU, ADIFF, CBC, CMP, A1C, LIPID #### [address] [address] Creatinine [Mass/Vol] 0.71 mg/dL Normal 0.60-1.40 [facility] Comment on above: Result Comment: Test ing performed on [employer] analyzer using enzymatic creatinine methodology. Performed By: #### M G, GFR, ANEU, ADIFF, CBC, CMP, A1C, LIPID #### [address] [address] Electrolyte Balance 4.0 mEq/L Normal 4.0-15.0 [facility] Comment on above: Performed By: #### M G, GFR, ANEU, ADIFF, CBC, CMP, A1C, LIPID #### [address] [address] Globulin 3.5 G/dL Normal 2.5-4.2 [facility] Comment on above: Performed By: #### M G, GFR, ANEU, ADIFF, CBC, CMP, A1C, LIPID #### [address] [address] Glucose [Mass/Vol] 109 mg/dL Normal 70-[address] [facility] Comment on above: Performed By: #### M G, GFR, ANEU, ADIFF, CBC, CMP, A1C, LIPID #### [address] [address] Potassium [Moles/Vol] 3.7 mmol/L Normal 3.5-5.0 [facility] Comment on above: Performed By: #### M G, GFR, ANEU, ADIFF, CBC, CMP, A1C, LIPID #### [address] [address] Sodium [Moles/Vol] 139 mmol/L Normal 136-[address] [facility] Comment on above: Performed By: #### M G, GFR, ANEU, ADIFF, CBC, CMP, A1C, LIPID #### [facility] [address] [place] [address] Total Protein 7.1 G/dL Normal 5.7-8.2 [facility] Comment on above: Performed By: #### M G, GFR, ANEU, ADIFF, CBC, CMP, A1C, LIPID #### [facility] [address] [place] [address] Urea nitrogen [Mass/Vol] 10.0 mg/dL Normal 8.0-22.0 [facility] Comment on above: Performed By: #### M G, GFR, ANEU, ADIFF, CBC, CMP, A1C, LIPID #### [facility] [address] [place] [address] CMP with eGFRon 10-16-2024 AGE 54 years Normal [facility] Comment on above: Performed By: #### 2 41471 ####[facility],[address] [place] [address] Albumin [Mass/Vol] 3.4 g/dL Normal 3.4 - 5.0 [facility] Comment on above: Performed By: #### 2 06776 ####[facility],[address] [place] [address] Albumin/Globulin [Mass ratio] 0.9 {ratio} Normal 0.9 - 1.6 [facility] Comment on above: Performed By: #### 2 79007 ####[facility],[address] [place] [address] ALK PHOS 76 U/L Normal 46 - 116 [facility] Comment on above: Performed By: #### 2 95783 ####[facility],[address] [place] [address] ALT [Catalytic activity/Vol] 17 U/L Normal 16 - 63 [facility] Comment on above: Performed By: #### 2 31328 ####[facility],[address] [place] [address] Anion gap [Moles/Vol] 11 mmol/L Normal 10 - 20 [facility] Comment on above: Performed By: #### 2 33578 ####[facility],[address] [place] [address] AST [Catalytic activity/Vol] 17 U/L Normal 15 - 37 [facility] Comment on above: Performed By: #### 2 96706 ####[facility],[address] [place] [address] B/C RATIO 13 ratio Normal 0 - 30 [facility] Comment on above: Performed By: #### 2 11435 ####[facility],[address] [place] [address] Bilirubin [Mass/Vol] 0.5 mg/dL Normal 0.2 - 1.0 [facility] Comment on above: Performed By: #### 2 08831 ####[facility],[address] [place] [address] Calcium [Mass/Vol] 8.9 mg/dL Normal 8.5 - 10.1 [facility] Comment on above: Performed By: #### 2 77773 ####[facility],[address] [place] [address] Chloride [Moles/Vol] 101 mmol/L Normal 98 - 107 [facility] Comment on above: Performed By: #### 2 50521 ####[facility],[address] [place] [address] CMP with eGFR Normal [facility] Comment on above: Result Comment: COMP REHENSIVE METABOLIC PANEL Performed By: #### 2 19940 ####[facility],[address] [place] [address] CO2 [Moles/Vol] 30.7 mmol/L Normal 21.0 - 32.0 [facility] Comment on above: Performed By: #### 2 53911 ####[facility],[address] [place] [address] Creatinine [Mass/Vol] 0.96 mg/dL Normal 0.70 - 1.30 [facility] Comment on above: Performed By: #### 2 49921 ####[facility],[address] [place] [address] GFR/1.73 sq M.predicted among non-blacks MDRD (S/P/Bld) [Vol rate/Area] mL/min/{1.73_m2} Normal 60 - 999 [facility] Comment on above: Performed By: #### 2 54892 ####[facility],[address] [place] [address] Result Comment: ACCO RDING TO THE NATIONAL KIDNEY DISEASE EDUCATION PROGRAM(NKDE), A NORMAL eGFR IS A VALUE GREATER THAN OR EQUAL TO 60 ML/MIN/1.73 SQ METERS. CHRONIC KIDNEY DISEASE: <60mL/MIN/1.73 SQ METERS KIDNEY FAILURE: <15mL/MIN/1.73 SQ METERS THIS TEST SHOULD ONLY BE USED FOR PATIENTS 18 YEARS OF AGE AND OLDER. Globulin (S) [Mass/Vol] 3.7 g/dL Normal 1.5 - 3.8 [facility] Comment on above: Performed By: #### 2 87810 ####[facility],[address] [place] [address] Glucose [Mass/Vol] 94 mg/dL Normal 74 - 106 [facility] Comment on above: Performed By: #### 2 14026 ####[facility],[address] [place] [address] Potassium [Moles/Vol] 3.6 mmol/L Normal 3.5 - 5.1 [facility] Comment on above: Performed By: #### 2 42383 ####[facility],[address] [place] [address]291 Protein [Mass/Vol] 7.1 g/dL Normal 6.4 - 8.2 [facility] Comment on above: Performed By: #### 2 06031 ####[facility],[address] [place] [address] Sodium [Moles/Vol] 139 mmol/L Normal 136 - 145 [facility] Comment on above: Performed By: #### 2 16855 ####[facility],[address] [place] [address]68 Urea nitrogen [Mass/Vol] 12 mg/dL Normal 7 - 18 [facility] Comment on above: Performed By: #### 2 48776 ####[facility],[address] [place] [address]897 ED MED ADMINISTRATION DETAIL on 10-16-2024 ED MED 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 1 of 1 Normal [facility] ED NURSES CLINICAL NOTEon ED NURSES CLINICAL NOTE Nurse Narrative Nurse Clinical Narrative [address] [address] [id number] 10/16/2024 12:34:00 Patient: SOCORRO KELLEY Sex: Male : 1970 Age: 54y Disposition: Transfer to [facility] Disposition Decision Time: 14:27 10/16/2024 Departure [...] had swelling, redness and trouble walking. Treatment EXTRA HAND: Ice. SEPSIS SCREEN: NEGATIVE. SIRS criteria negative. No possible sources of infection. -- 12:47 10/16/24 EDT Silvina Maguire R.N. 12:47 10/16/24. BP: 171/95 MAP: 120. HR: 93. RR: 18. O2 saturation: 93% Temperature: 98.9 F. Pain level now 1010. -- 12:47 10/16/24 EDT Silvina Maguire R.N. [...] %) solution for nebulization -- 12:51 10/16/24 EKTAT Silvina Maguire R.N. pravastatin 40 mg tablet -- 12:10/16/24 EKTAT Silvina Maguire R.N. metoprolol succinate ER 100 mg tablet,extended release 24 hr -- 12:51 10/16/24 EKTAT Silivna Maguire R.N. spironolactone 25 mg tablet -- 12:51 10/16/24 EKTAT Silvina Maguire R.N. trazodone 100 mg tablet -- 12:51 10/16/24 T Silvina Maguire R.N. tizanidine 2 mg tablet -- 12:51 10/16/24 T Silvina Maguire R.N. hydroxyzine pamoate 25 mg capsule -- 12:51 10/16/24 T Silvina Maguire R.N. furosemide 20 mg tablet -- 12:51 10/16/24 T Silvina Maguire R.N. duloxetine 20 mg capsule,delayed release -- 12:51 10/16/24 T Silvina Maguire R.N. budesonide-formoterol HFA 80 mcg-4.5 mcg/actuation aerosol inhaler -- 12:51 10/16/24 T Silvina Maguire R.N. True Metrix Glucose Test [...] 12:51 10/16/24 EKTAT Silvina Maguire R.N. Allergies: Rvgjzvz-DSA-RdD Reductase Inhibitors -- 12:40 10/16/24 EKTAT Silvina Maguire R.N. Problems: Atrial Fibrillation -- 12:40 10/16/24 EKTAT Silvina Maguire R.N. Congestive Heart Failure -- 12:40 10/16/24 EKTAT Silvina Maguire R.N. Hypertension -- 12:41 10/16/24 T Silvina Maguire R.N. Glaucoma -- 12:41 10/16/24 [...] 10/16/24. E (more content not included)... Normal [facility] ED ORDER SHEET (CPOE ONLY)on 10-16-2024 ED ORDER SHEET (CPOE ONLY) Order Sheet Order Sheet [place] [address] [facility] [place] [address] [id number] 10/16/2024 Patient: SOCORRO KELLEY Sex: Male : 1970 Age: 54y MEASUREMENTS: Wt: 140.2 kg, Ht/Wilson: 69.0 in, BMI: 45.63 ALLERGIES: Vwsbbws-PDF-DkD Reductase Inhibitors MEDICATION/IV/DRIP/FLU ID ORDERS Order Description [...] 10/16/2024 Reymundo Carvajal Debra Schrock, R.N. R.N. BNP Stat Stat 14:00 10/16/2024 14:10 10/16/2024 [...] Blackman R.N. REverettNEverett Reason for Study: Trauma/Injury Ankle R Complete [...] (10/16/2024 15:18 EDT)] 3 of 3 Normal [facility] ED PHYSICIAN CLINICAL REPORT on 10-16-2024 ED PHYSICIAN CLINICAL REPORT Narrative Physician Clinical Narrative [address] [address] [id number] 10/16/2024 12:34:00 Patient: SOCORRO KELLEY Sex: Male : 1970 Age: 54y Disposition: Transfer to [facility] Disposition Decision Time: 14:27 10/16/2024 Measurements [...] pen injector Xarelto 20 mg tablet Allergies: Inuavwj-NAF-YwG Reductase Inhibitors SOCIAL HISTORY Does not use [...] 148 x10/UL (more content not included)... Normal [facility] ED SUPER BILLon 10-16-2024 ED SUPER BILL [place] [id number] [place] [address] [phone] 10/16/2024 Patient: SOCORRO KELLEY Sex: Male : 1970 Age: 54y Facility Professional Category Item Description Code Code Quantity Fee Total Nurse/E/M EMERGENCY 715927 1 $0.00 $0.00 DEPT VISIT HIGH SEVERITYFUNCJ (16715-91) Nurse/IV/IM/Infusions IVP initial ([id number]) [id number] 1 $0.00 $0.00 Grand $0.00 Total Providers Jake Maxwell M.D. Jake Maxwell M.D. Chief Complaint Injury to right foot and right ankle. Principal Diagnosis Closed displaced, severely angulated right bimalleolar fracture. 1 of 2 [facility] ICD-10 Codes S82.841A: Displaced bimalleolar fracture of right lower leg, initial encounter for closed fracture 2 of 2 Normal [facility] [facility] ED VISIT SUMMARYon ED VISIT SUMMARY Visit Overview Visit Overview [address] [address] [id number] 10/16/2024 Patient: SOCORRO KELLEY Sex: Male : 1970 Age: 54y 10/16/2024 07:42 PM EDT ED Arrival:12:34 10/16/2024 EDT Status: Recent Travel:no Language:eng Adv Directive:No Isolation Status: Ethnicity:N Fall Risk:risk Infectious Disease Exposure:no Measurements:5'9 / 175.3 Self-Harm Status:risk Sepsis Screen:negative cm 309.0 lb / 140.2 kg Chief Complaint:RIGHT LOWER EXTREMITY PAIN, RIGHT LOWER EXTREMITY REDNESS, and RIGHT LOWER EXTREMITY SWELLING ALLERGIES Aijamtb-ATQ-TuH Reductase Inhibitors HOME MEDICATIONS albuterol sulfate 2.5 [...] Site #1 right AC, 20g. Saline lock. 4 Visit Overview INTAKE OUTPUT REASSESMENT (most [...] RIGHT BIMALLEOLAR FRACTURE 4 of 4 Normal [facility] ED VITALS FLOW SHEETon 10-16 ED VITALS FLOW SHEET Vitals Vital Sign Flow Sheet [address] [place] [address] [phone] 10/16/2024 Patient: SOCORRO KELLEY Sex: Male : [...] 98.9 F 10 2 of 2 Normal [facility] FOOT COMPLETE RTon FOOT COMPLETE RT [place] [address] Patient: SOCORRO KELLEY Phone#: : 1970 Age: 54 Gender: M Pt. Type: ER Account: [id number] Location: [facility] Ordering: JAKE MAXWELL Exam Date: 10/16/2024/13:00 Family Phys: Charge Code: 302213 Physician: [place] Order #: [id number] Dose#: PROCEDURE: X-RAY FOOT RT COMPLETE MIN [...] Bagley MD on 10/16/2024 at 14:23 Normal [facility] LABORATORYOrdered By: SYSTEM SYSTEM on 10-16-2024 [...] vol] 17.52 1 Normal 0.00 - 20.00 AH Workflow SS Comment on above: Result Comment: [...] [Moles/Vol] 1.1 mmol/L Normal 0.4 - 2.0 [facility] Comment on above: Performed By: #### 2 [id number] #### [facility],[address] [place] [address] NT-proBNPon 10-16-2024 Natriuretic peptide B (Bld) [Mass/Vol] 291 pg/mL High 0 - 125 [facility] Comment on above: Performed By: #### 2 14414 #### [facility],[address] [place], [place] [id number] PROTHROMBIN TIME AND INRon 0 10-16-2024 INR Coag (PPP) [Relative time] 1.4 {INR} High 0.8 - 1.2 [facility] Comment on above: Result Comment: T [...] MECHANICAL HEART VALVES Performed By: #### 2 [id number] ####[facility],[address] [place] [address] PROTHROMBIN TIME AND INR Normal [facility] Comment on above: Result Comment: PROT HROMBIN TIME AND INR Performed By: #### 2 83632 ####[facility],[address] [place] [address] PT-COUMADIN 15.9 sec High 9.3 - 14.1 [facility] Comment on above: Performed By: #### 2 85540 ####[facility],[address] [place] [address] TIBIA-FIBULA RTon 10-16-2024 TIBIA-FIBULA [place] [address] Patient: SOCORRO KELLEY Phone#: : 1970 Age: 54 Gender: M Pt. Type: ER Account: [id number] Location: [facility] Ordering: JAKE MAXWELL Exam Date: 10/16/2024/13:23 Family Phys: Charge Code: [id number] Physician: [place] Order #: [id number] Dose#: PROCEDURE: X-RAY TIB FIB RT 2 [...] Corrine Bagley MD on 10/16/2024 at 14:12 [facility] XR ANKLE MINIMUM 3 VIEWS LEF [...] Date: 10/16/2024 10:39:42 PM Ordering Provider: RIC ARELLNAO [facility] XR ANKLE MINIMUM 3 VIEWS RIG [...] Interpreted by: Trace Fierro Preliminary Report By: Jorodn Levin Electronically signed By Trace Fierro Dictated Date: 10/16/2024 8:55:43 PM Prelim Date: 10/16/2024 8:57:44 PM Sign Date: 10/16/2024 9:20:54 PM Ordering Provider: RIC ARELLANO [facility] MAIN XR ANKLE MINIMUM 3 VIEWS [...] 10/16/2024 7:53:07 PM Ordering Provider: EM GARCIA [facility] XR ANKLE MINIMUM 3 VIEWS [...] 10/16/2024 6:28:12 PM Ordering Provider: EM Kate [facility] .Auto Diffon 10-04-2024 Basophil, Absolute 0.0 10 3/mcL Normal 0.0-0.3 [facility] Comment on above: Performed By: #### M G, GFR, ANEU, ADIFF, CBC, CMP, A1C, LIPID #### [address] [address] Basophils/100 WBC (Bld) 0.9 % Normal 0.0-2.5 [facility] Comment on above: Performed By: #### M G, GFR, ANEU, ADIFF, CBC, CMP, A1C, LIPID #### [address] [address] Eosinophil, Absolute 0.1 10 3/mcL Normal 0.0-0.7 [facility] Comment on above: Performed By: #### M G, GFR, ANEU, ADIFF, CBC, CMP, A1C, LIPID #### [address] [address] Eosinophils/100 WBC (Bld) 1.9 % Normal 0.0-6.0 [facility] Comment on above: Performed By: #### M G, GFR, ANEU, ADIFF, CBC, CMP, A1C, LIPID #### [address] [address] Lymphocyte, Absolute 1.0 10 3/mcL Normal 0.9-4.3 [facility] Comment on above: Performed By: #### M G, GFR, ANEU, ADIFF, CBC, CMP, A1C, LIPID #### [address] [address] Lymphocytes/100 WBC (Bld) 24.9 % Normal 20.0-40.0 [facility] Comment on above: Performed By: #### M G, GFR, ANEU, ADIFF, CBC, CMP, A1C, LIPID #### [address] [address] Monocyte, Absolute 0.3 10 3/mcL Normal 0.1-1.4 [facility] Comment on above: Performed By: #### M G, GFR, ANEU, ADIFF, CBC, CMP, A1C, LIPID #### [address] [address] Monocytes/100 WBC (Bld) 7.5 % Normal 2.0-13.0 [facility] Comment on above: Performed By: #### M G, GFR, ANEU, ADIFF, CBC, CMP, A1C, LIPID #### [address] [address] Neutrophils/100 WBC (Bld) 64.8 % Normal 50.0-75.0 [facility] Comment on above: Performed By: #### M G, GFR, ANEU, ADIFF, CBC, CMP, A1C, LIPID #### [address] [address] .GFRon 10-04-2024 Estimated Glomerular Filtration Rate 107 ml/min/1.73sqm Normal [facility] Comment on above: Result Comment: [...] ANEU, ADIFF, CBC, CMP, A1C, LIPID #### [address] [address] .NEUABSon 10-04-2024 Neutrophil, Absolute 2.5 10 3/mcL Normal 2.3-8.1 [facility] Comment on above: Performed By: #### M G, GFR, ANEU, ADIFF, CBC, CMP, A1C, LIPID #### [address] [address] BMPon 10-04-2024 BUN/Creatinine Ratio 6.5 ratio Low 10.0-22.0 [facility] Comment on above: Performed By: #### M G, GFR, ANEU, ADIFF, CBC, CMP, A1C, LIPID #### [address] [address] Calcium [Mass/Vol] 8.5 mg/dL Low 8.7-10.[address] [facility] Comment on above: Performed By: #### M G, GFR, ANEU, ADIFF, CBC, CMP, A1C, LIPID #### [address] [address] Chloride [Moles/Vol] 102 mmol/L Normal 98-110 [facility] Comment on above: Performed By: #### M G, GFR, ANEU, ADIFF, CBC, CMP, A1C, LIPID #### [address] [address] CO2 [Moles/Vol] 31 mmol/L Normal 22-32 [facility] Comment on above: Performed By: #### M G, GFR, ANEU, ADIFF, CBC, CMP, A1C, LIPID #### [address] [address] Creatinine [Mass/Vol] 0.77 mg/dL Normal 0.60-1.40 [facility] Comment on above: Result Comment: Test ing performed on [employer] analyzer using enzymatic creatinine methodology. Performed By: #### M G, GFR, ANEU, ADIFF, CBC, CMP, A1C, LIPID #### [address] [address] Electrolyte Balance 6.0 mEq/L Normal 4.0-15.0 [facility] Comment on above: Performed By: #### M G, GFR, ANEU, ADIFF, CBC, CMP, A1C, LIPID #### [address] [address] Glucose [Mass/Vol] 108 mg/dL Normal 70-[address] [facility] Comment on above: Performed By: #### M G, GFR, ANEU, ADIFF, CBC, CMP, A1C, LIPID #### [place] [id number] Potassium [Moles/Vol] 3.5 mmol/L Normal 3.5-5.0 [facility] Comment on above: Performed By: #### M G, GFR, ANEU, ADIFF, CBC, CMP, A1C, LIPID #### [place] [id number] Sodium [Moles/Vol] 139 mmol/L Normal 136-[address] [facility] Comment on above: Performed By: #### M G, GFR, ANEU, ADIFF, CBC, CMP, A1C, LIPID #### [place] [id number] Urea nitrogen [Mass/Vol] 5.0 mg/dL Low 8.0-22.0 [facility] Comment on above: Performed By: #### M G, GFR, ANEU, ADIFF, CBC, CMP, A1C, LIPID #### [address] [address] CBCon 10-04-2024 Erythrocyte distribution width (RBC) [Ratio] 17.1 % High 11.5-15.5 [facility] Comment on above: Performed By: #### M G, GFR, ANEU, ADIFF, CBC, CMP, A1C, LIPID #### [place] [id number] Hematocrit (Bld) [Volume fraction] 42.5 % Normal 40.0-52.0 [facility] Comment on above: Performed By: #### M G, GFR, ANEU, ADIFF, CBC, CMP, A1C, LIPID #### [place] [id number] Hgb 13.8 G/dL Normal 13.0-17.5 [facility] Comment on above: Performed By: #### M G, GFR, ANEU, ADIFF, CBC, CMP, A1C, LIPID #### [place] [id number] MCH (RBC) [Entitic mass] 28.4 pg Normal 27.0-33.0 [facility] Comment on above: Performed By: #### M G, GFR, ANEU, ADIFF, CBC, CMP, A1C, LIPID #### [place] [address] MCHC 32.6 G/dL Normal 32.0-36.0 [facility] Comment on above: Performed By: #### M G, GFR, ANEU, ADIFF, CBC, CMP, A1C, LIPID #### [place] [address] MCV (RBC) [Entitic vol] 87.2 fL Normal 81.0-100.0 [facility] Comment on above: Performed By: #### M G, GFR, ANEU, ADIFF, CBC, CMP, A1C, LIPID #### [place] [address] Platelet 120 10 3/mcL Low 150-450 [facility] Comment on above: Performed By: #### M G, GFR, ANEU, ADIFF, CBC, CMP, A1C, LIPID #### [place] [address] Platelet mean volume (Bld) [Entitic vol] 7.4 fL Normal 6.4-10.5 [facility] Comment on above: Performed By: #### M G, GFR, ANEU, ADIFF, CBC, CMP, A1C, LIPID #### [place] [address] RBC 4.87 10 6/mcL Normal 4.50-6.00 [facility] Comment on above: Performed By: #### M G, GFR, ANEU, ADIFF, CBC, CMP, A1C, LIPID #### [place] [address] WBC 3.8 10 3/mcL Low 4.5-10.8 [facility] Comment on above: Performed By: #### M G, GFR, ANEU, ADIFF, CBC, CMP, A1C, LIPID #### [place] [address] LABORATORYOrdered By: Adenike Swain on 10-04-2024 Blood Glucose Testing Reason Routine (10/04/24 7:18 AM) [facility] Glucose [Mass/Vol] 100 mg/dL Normal 70 - 110 mg/dL [facility] LABORATORYOrdered By: SYSTEM SYSTEM on 10-04-2024 Basophils [...] 0.77 mg/dL Normal 0.60 - 1.40 mg/dL AH ADM SS Comment on above: Interpretive Data: T esting performed on [employer] analyzer using enzymatic creatinine methodology. Electrolyte Balance [...] 100.0 fL Workflow SS Monocytes (Bld) [#/Vol] 0.3 103/mcL [...] 10-04-2024 Magnesium [Mass/Vol] 1.9 mg/dL Normal 1.6-2.4 [facility] Comment on above: Performed By: #### M G, GFR, ANEU, ADIFF, CBC, CMP, A1C, LIPID #### [address] [address] .Auto Diffon 10-03-2024 Basophil, Absolute 0.0 10 3/mcL Normal 0.0-0.3 [facility] Comment on above: Performed By: #### M G, GFR, ANEU, ADIFF, CBC, CMP, A1C, LIPID #### [address] [address] Basophils/100 WBC (Bld) 0.9 % Normal 0.0-2.5 [facility] Comment on above: Performed By: #### M G, GFR, ANEU, ADIFF, CBC, CMP, A1C, LIPID #### [address] [address] Eosinophil, Absolute 0.1 10 3/mcL Normal 0.0-0.7 [facility] Comment on above: Performed By: #### M G, GFR, ANEU, ADIFF, CBC, CMP, A1C, LIPID #### [address] [address] Eosinophils/100 WBC (Bld) 2.0 % Normal 0.0-6.0 [facility] Comment on above: Performed By: #### M G, GFR, ANEU, ADIFF, CBC, CMP, A1C, LIPID #### [address] [address] Lymphocyte, Absolute 0.9 10 3/mcL Normal 0.9-4.3 [facility] Comment on above: Performed By: #### M G, GFR, ANEU, ADIFF, CBC, CMP, A1C, LIPID #### [place] [id number] [address] [place] [address] Lymphocytes/100 WBC (Bld) 21.1 % Normal 20.0-40.0 [facility] Comment on above: Performed By: #### M G, GFR, ANEU, ADIFF, CBC, CMP, A1C, LIPID #### [place] [id number] [address] [place] [address] Monocyte, Absolute 0.3 10 3/mcL Normal 0.1-1.4 [facility] Comment on above: Performed By: #### M G, GFR, ANEU, ADIFF, CBC, CMP, A1C, LIPID #### [address] [address] Monocytes/100 WBC (Bld) 7.6 % Normal 2.0-13.0 [facility] Comment on above: Performed By: #### M G, GFR, ANEU, ADIFF, CBC, CMP, A1C, LIPID #### [address] [address] Neutrophils/100 WBC (Bld) 68.4 % Normal 50.0-75.0 [facility] Comment on above: Performed By: #### M G, GFR, ANEU, ADIFF, CBC, CMP, A1C, LIPID #### [address] [address] .GFRon 10-03-2024 Estimated Glomerular Filtration Rate 109 ml/min/1.73sqm Normal [facility] Comment on above: Result Comment: [...] ANEU, ADIFF, CBC, CMP, A1C, LIPID #### [address] [address] .NEUABSon 10-03-2024 Neutrophil, Absolute 2.8 10 3/mcL Normal 2.3-8.1 [facility] Comment on above: Performed By: #### M G, GFR, ANEU, ADIFF, CBC, CMP, A1C, LIPID #### [place] [id number] A1Con 10-03-2024 Glucose [Mass/Vol] 114 mg/dL Normal [facility] Comment on above: Result Comment: Zahida mated Average Glucose calculated by equation ((28.7xA1C)-46.7) Estimated average glucose (eAG) is a calculated value from Hemoglobin A1C and is labor representative of the average blood glucose level in the last 2-3 month period. Normal range: less than 114 mg/dL Performed By: #### M G, GFR, ANEU, ADIFF, CBC, CMP, A1C, LIPID #### [place] [address] HbA1c (Bld) [Mass fraction] 5.6 % Normal 4.0-6.0 [facility] Comment on above: Performed By: #### M G, GFR, ANEU, ADIFF, CBC, CMP, A1C, LIPID #### [place] [address] CBCon 10-03-2024 Erythrocyte distribution width (RBC) [Ratio] 16.6 % High 11.5-15.5 [facility] Comment on above: Performed By: #### M G, GFR, ANEU, ADIFF, CBC, CMP, A1C, LIPID #### [place] [address] Hematocrit (Bld) [Volume fraction] 41.1 % Normal 40.0-52.0 [facility] Comment on above: Performed By: #### M G, GFR, ANEU, ADIFF, CBC, CMP, A1C, LIPID #### [place] [address] Hgb 13.5 G/dL Normal 13.0-17.5 [facility] Comment on above: Performed By: #### M G, GFR, ANEU, ADIFF, CBC, CMP, A1C, LIPID #### [place] [address] MCH (RBC) [Entitic mass] 28.7 pg Normal 27.0-33.0 [facility] Comment on above: Performed By: #### M G, GFR, ANEU, ADIFF, CBC, CMP, A1C, LIPID #### [place] [id number] MCHC 32.9 G/dL Normal 32.0-36.0 [facility] Comment on above: Performed By: #### M G, GFR, ANEU, ADIFF, CBC, CMP, A1C, LIPID #### [place] [address] MCV (RBC) [Entitic vol] 87.2 fL Normal 81.0-100.0 [facility] Comment on above: Performed By: #### M G, GFR, ANEU, ADIFF, CBC, CMP, A1C, LIPID #### [place] [address] Platelet 136 10 3/mcL Low 150-450 [facility] Comment on above: Performed By: #### M G, GFR, ANEU, ADIFF, CBC, CMP, A1C, LIPID #### [place] [address] Platelet mean volume (Bld) [Entitic vol] 7.6 fL Normal 6.4-10.5 [facility] Comment on above: Performed By: #### M G, GFR, ANEU, ADIFF, CBC, CMP, A1C, LIPID #### [place] [address] RBC 4.72 10 6/mcL Normal 4.50-6.00 [facility] Comment on above: Performed By: #### M G, GFR, ANEU, ADIFF, CBC, CMP, A1C, LIPID #### [place] [address] WBC 4.2 10 3/mcL Low 4.5-10.8 [facility] Comment on above: Performed By: #### M G, GFR, ANEU, ADIFF, CBC, CMP, A1C, LIPID #### [address] [address] CMPon 10-03-2024 Albumin Level 3.3 G/dL Normal 3.2-4.8 [facility] Comment on above: Performed By: #### M G, GFR, ANEU, ADIFF, CBC, CMP, A1C, LIPID #### [place] [id number] Albumin/Globulin [Mass ratio] 1.0 {ratio} Normal 0.9-1.6 [facility] Comment on above: Performed By: #### M G, GFR, ANEU, ADIFF, CBC, CMP, A1C, LIPID #### [place] [id number] ALP [Catalytic activity/Vol] 56 U/L Normal 38-126 [facility] Comment on above: Performed By: #### M G, GFR, ANEU, ADIFF, CBC, CMP, A1C, LIPID #### [place] [address] ALT [Catalytic activity/Vol] 10 U/L Low 12-55 [facility] Comment on above: Performed By: #### M G, GFR, ANEU, ADIFF, CBC, CMP, A1C, LIPID #### [place] [id number] AST [Catalytic activity/Vol] 16 U/L Normal 8-34 [facility] Comment on above: Performed By: #### M G, GFR, ANEU, ADIFF, CBC, CMP, A1C, LIPID #### [place] [address] Bili Total 0.60 mg/dL Normal 0.20-1.20 [facility] Comment on above: Result Comment: Use of this assay is not recommended for patients undergoing treatment with eltrombopag due to the potential for falsely elevated results. Performed By: #### M G, GFR, ANEU, ADIFF, CBC, CMP, A1C, LIPID #### [place] [address] BUN/Creatinine Ratio 9.6 ratio Low 10.0-22.0 [facility] Comment on above: Performed By: #### M G, GFR, ANEU, ADIFF, CBC, CMP, A1C, LIPID #### [address] [address] Calcium [Mass/Vol] 8.4 mg/dL Low 8.7-10.[address] [facility] Comment on above: Performed By: #### M G, GFR, ANEU, ADIFF, CBC, CMP, A1C, LIPID #### [address] [address] Chloride [Moles/Vol] 105 mmol/L Normal 98-110 [facility] Comment on above: Performed By: #### M G, GFR, ANEU, ADIFF, CBC, CMP, A1C, LIPID #### [address] [address] CO2 [Moles/Vol] 31 mmol/L Normal 22-32 [facility] Comment on above: Performed By: #### M G, GFR, ANEU, ADIFF, CBC, CMP, A1C, LIPID #### [place] [id number] Creatinine [Mass/Vol] 0.73 mg/dL Normal 0.60-1.40 [facility] Comment on above: Result Comment: Test ing performed on [employer] analyzer using enzymatic creatinine methodology. Performed By: #### M G, GFR, ANEU, ADIFF, CBC, CMP, A1C, LIPID #### [place] [id number] Electrolyte Balance 1.0 mEq/L Low 4.0-15.0 [facility] Comment on above: Performed By: #### M G, GFR, ANEU, ADIFF, CBC, CMP, A1C, LIPID #### [address] [address] Globulin 3.2 G/dL Normal 2.5-4.2 [facility] Comment on above: Performed By: #### M G, GFR, ANEU, ADIFF, CBC, CMP, A1C, LIPID #### [place] [id number] Glucose [Mass/Vol] 109 mg/dL Normal 70-[address] [facility] Comment on above: Performed By: #### M G, GFR, ANEU, ADIFF, CBC, CMP, A1C, LIPID #### [address] [address] Potassium [Moles/Vol] 3.5 mmol/L Normal 3.5-5.0 [facility] Comment on above: Performed By: #### M G, GFR, ANEU, ADIFF, CBC, CMP, A1C, LIPID #### [address] [address] Sodium [Moles/Vol] 137 mmol/L Normal 136-[address] [facility] Comment on above: Performed By: #### M G, GFR, ANEU, ADIFF, CBC, CMP, A1C, LIPID #### [address] [address] Total Protein 6.5 G/dL Normal 5.7-8.2 [facility] Comment on above: Performed By: #### M G, GFR, ANEU, ADIFF, CBC, CMP, A1C, LIPID #### [address] [address] Urea nitrogen [Mass/Vol] 7.0 mg/dL Low 8.0-22.0 [facility] Comment on above: Performed By: #### M G, GFR, ANEU, ADIFF, CBC, CMP, A1C, LIPID #### [address] [address] LABORATORYOrdered By: Jorge Wahl on 10-03-2024 Blood Glucose Testing Reason Routine (10/03/24 4:57 PM) [facility] Glucose [Mass/Vol] 81 mg/dL Normal 70 - 110 mg/dL [facility] LABORATORYOrdered By: Sophie Simental on 10-03-2024 Blood Glucose Testing Reason Routine (10/03/24 11:18 AM) [facility] Glucose [Mass/Vol] 99 mg/dL Normal 70 - 110 mg/dL [facility] LABORATORYOrdered By: SYSTEM SYSTEM on 10-03-2024 Albumin BCP dye [Mass/Vol] 3.3 G/dL Normal 3.2 - 4.8 G/dL ADM SS Albumin/Globulin [Mass ratio] 1.0 {ratio} Normal 0.9 - 1.6 ratio ADM SS ALP [Catalytic activity/Vol] 56 U/L [...] above: Interpretive Data: T esting performed on [employer] analyzer using enzymatic creatinine methodology. Electrolyte Balance [...] 3.2 G/dL Normal 2.5 - 4.2 G/dL AH ADM SS Glucose [Mass/Vol] 109 mg/dL Normal 70 - 110 mg/dL ADM SS Glucose [Mass/Vol] 114 mg/dL Invalid Interpretation Code Auto Chem SS Comment on above: Interpretive Data: E stimated average glucose (eAG) is a calculated value from Hemoglobin A1C and is labor representative of the average blood glucose level in the last 2-3 month period. Normal range: less than 114 mg/dL HbA1c (Bld) [Mass fraction] 5.6 % Normal 4.0 - 6.0 % Auto Chem SS Hematocrit (Bld) [Volume fraction] 41.1 % Normal 40.0 - 52.0 % AH [...] 10-03-2024 Cholesterol [Mass/Vol] 105 mg/dL Normal 50-199 [facility] Comment on above: Result Comment: Chol esterol Reference Interval: Less than 200 Desirable 200-239 Borderline high risk 240 and above High risk Performed By: #### M G, GFR, ANEU, ADIFF, CBC, CMP, A1C, LIPID #### [place] [address] Cholesterol in HDL [Mass/Vol] 17 mg/dL Low 40-59 [facility] Comment on above: Performed By: #### M G, GFR, ANEU, ADIFF, CBC, CMP, A1C, LIPID #### [place] [address] Cholesterol in LDL [Mass/Vol] 58 mg/dL Normal 0-129 [facility] Comment on above: Performed By: #### M G, GFR, ANEU, ADIFF, CBC, CMP, A1C, LIPID #### [place] [address] Triglyceride [Mass/Vol] 151 mg/dL High 3-149 [facility] Comment on above: Performed By: #### M G, GFR, ANEU, ADIFF, CBC, CMP, A1C, LIPID #### [place] [id number] MGon 10-03-2024 Magnesium [Mass/Vol] 2.1 mg/dL Normal 1.6-2.4 [facility] Comment on above: Performed By: #### M G, GFR, ANEU, ADIFF, CBC, CMP, A1C, LIPID #### [address] [address] .Auto Diffon 10-02-2024 Basophil, Absolute 0.0 10 3/mcL Normal 0.0-0.3 [facility] Comment on above: Performed By: #### M G, GFR, ANEU, ADIFF, CBC, CMP, A1C, LIPID #### [place] [id number] Basophils/100 WBC (Bld) 0.6 % Normal 0.0-2.5 [facility] Comment on above: Performed By: #### M G, GFR, ANEU, ADIFF, CBC, CMP, A1C, LIPID #### [place] [address] Eosinophil, Absolute 0.1 10 3/mcL Normal 0.0-0.7 [facility] Comment on above: Performed By: #### M G, GFR, ANEU, ADIFF, CBC, CMP, A1C, LIPID #### [address] [id number] Eosinophils/100 WBC (Bld) 1.0 % Normal 0.0-6.0 [facility] Comment on above: Performed By: #### M G, GFR, ANEU, ADIFF, CBC, CMP, A1C, LIPID #### [address] [id number] Lymphocyte, Absolute 1.2 10 3/mcL Normal 0.9-4.3 [facility] Comment on above: Performed By: #### M G, GFR, ANEU, ADIFF, CBC, CMP, A1C, LIPID #### [address] [id number] Lymphocytes/100 WBC (Bld) 18.1 % Low 20.0-40.0 [facility] Comment on above: Performed By: #### M G, GFR, ANEU, ADIFF, CBC, CMP, A1C, LIPID #### [address] [id number] Monocyte, Absolute 0.7 10 3/mcL Normal 0.1-1.4 [facility] Comment on above: Performed By: #### M G, GFR, ANEU, ADIFF, CBC, CMP, A1C, LIPID #### [address] [id number] Monocytes/100 WBC (Bld) 10.0 % Normal 2.0-13.0 [facility] Comment on above: Performed By: #### M G, GFR, ANEU, ADIFF, CBC, CMP, A1C, LIPID #### [address] [id number] Neutrophils/100 WBC (Bld) 70.3 % Normal 50.0-75.0 [facility] Comment on above: Performed By: #### M G, GFR, ANEU, ADIFF, CBC, CMP, A1C, LIPID #### [address] [id number] Basophil, Absolute 0.1 10 3/mcL Normal 0.0-0.3 [facility] Comment on above: Performed By: #### A DIFF, MDW, PRO, TROPHS, GFR, ANEU, CBC, PBNP, BMP ####[address] [address] Basophils/100 WBC (Bld) 0.8 % Normal 0.0-2.5 [facility] Comment on above: Performed By: #### A DIFF, MDW, PRO, TROPHS, GFR, ANEU, CBC, PBNP, BMP ####[place] [address] [place], [place] [address] Eosinophil, Absolute 0.1 10 3/mcL Normal 0.0-0.7 [facility] Comment on above: Performed By: #### A DIFF, MDW, PRO, TROPHS, GFR, ANEU, CBC, PBNP, BMP ####[place] [address] [place], [place] [address] Eosinophils/100 WBC (Bld) 1.2 % Normal 0.0-6.0 [facility] Comment on above: Performed By: #### A DIFF, MDW, PRO, TROPHS, GFR, ANEU, CBC, PBNP, BMP ####[place] [address] [place], [place] [address] Lymphocyte, Absolute 1.4 10 3/mcL Normal 0.9-4.3 [facility] Comment on above: Performed By: #### A DIFF, MDW, PRO, TROPHS, GFR, ANEU, CBC, PBNP, BMP ####[address] [address] Lymphocytes/100 WBC (Bld) 13.3 % Low 20.0-40.0 [facility] Comment on above: Performed By: #### A DIFF, MDW, PRO, TROPHS, GFR, ANEU, CBC, PBNP, BMP ####[address] [place], [place] [address] Monocyte, Absolute 0.8 10 3/mcL Normal 0.1-1.4 [facility] Comment on above: Performed By: #### A DIFF, MDW, PRO, TROPHS, GFR, ANEU, CBC, PBNP, BMP ####[facility] [place], [place] [address] Monocytes/100 WBC (Bld) 7.6 % Normal 2.0-13.0 [facility] Comment on above: Performed By: #### A DIFF, MDW, PRO, TROPHS, GFR, ANEU, CBC, PBNP, BMP ####[facility] [place], [place] [address] Neutrophils/100 WBC (Bld) 77.1 % High 50.0-75.0 [facility] Comment on above: Performed By: #### A DIFF, MDW, PRO, TROPHS, GFR, ANEU, CBC, PBNP, BMP ####[facility] [place], [place] [address] .GFRon 10-02-2024 Estimated Glomerular Filtration Rate 110 ml/min/1.73sqm [facility] Comment on above: Result Comment: Stages [...] ANEU, ADIFF, CBC, CMP, A1C, LIPID #### [address] [address] Estimated Glomerular Filtration Rate 104 ml/min/1.73sqm Normal [facility] Comment on above: Result Comment: Stages of [...] PRO, TROPHS, GFR, ANEU, CBC, PBNP, BMP ####[address] [place], [place] [address] .MDWon 10-02-2024 Monocyte Distribution Width 19.51 Normal 0.00-20.00 [facility] Comment on above: Result Comment: For ED adult patients suspected of sepsis, MDW<=20.0 does not rule out sepsis or risk of sepsis Performed By: #### A DIFF, MDW, PRO, TROPHS, GFR, ANEU, CBC, PBNP, BMP ####[address] [place], [place] [address] .NEUABSon 10-02-2024 Neutrophil, Absolute 4.7 10 3/mcL Normal 2.3-8.1 [facility] Comment on above: Performed By: #### M G, GFR, ANEU, ADIFF, CBC, CMP, A1C, LIPID #### [address] [address] Neutrophil, Absolute 8.4 10 3/mcL High 2.3-8.1 [facility] Comment on above: Performed By: #### A DIFF, MDW, PRO, TROPHS, GFR, ANEU, CBC, PBNP, BMP ####[facility] [place], [place] [address] APTTon 10-02-2024 aPTT Coag (Bld) [Time] 36.5 s High 25.0-35.0 [facility] Comment on above: Result Comment: For Heparin anticoagulation therapy, the recommended therapeutic range is: 54-77 seconds (APTT Correlation with Anti-Xa therapeutic range of 0.3-0.7 units/ml). PLEASE REFERENCE THE PHARMACY PROTOCOL FOR DOSING. Performed By: #### M G, GFR, ANEU, ADIFF, CBC, CMP, A1C, LIPID #### [address] [address] aPTT Coag (Bld) [Time] 29.3 s Normal 25.0-35.0 [facility] Comment on above: Result Comment: For Heparin anticoagulation therapy, the recommended therapeutic range is: 54-77 seconds (APTT Correlation with Anti-Xa therapeutic range of 0.3-0.7 units/ml). PLEASE REFERENCE THE PHARMACY PROTOCOL FOR DOSING. Performed By: #### M G, GFR, ANEU, ADIFF, CBC, CMP, A1C, LIPID #### [address] [address] [facility] 10-02-2024 BUN/Creatinine Ratio 14 ratio Normal 7-27 [facility] Comment on above: Performed By: #### A DIFF, MDW, PRO, TROPHS, GFR, ANEU, CBC, PBNP, BMP ####[address] [place], [place] [address] Calcium [Mass/Vol] 8.9 mg/dL Normal 8.4-10.2 [facility] Comment on above: Performed By: #### A FARHAD MDW, PRO, TROPHS, GFR, ANEU, CBC, PBNP, BMP ####[address] [place], [place] [address] Chloride [Moles/Vol] 101 mmol/L Normal 98-107 [facility] Comment on above: Performed By: #### A DIFF, MDW, PRO, TROPHS, GFR, ANEU, CBC, PBNP, BMP ####[address] [place], [place] [address] CO2 [Moles/Vol] 31 mmol/L High 22-29 [facility] Comment on above: Performed By: #### A DIFF, MDW, PRO, TROPHS, GFR, ANEU, CBC, PBNP, BMP ####[address] [place], [place] [address] Creatinine [Mass/Vol] 0.85 mg/dL Normal 0.67-1.17 [facility] Comment on above: Performed By: #### A DIFF, MDW, PRO, TROPHS, GFR, ANEU, CBC, PBNP, BMP ####[address] [address] Electrolyte Balance 6.0 mEq/L Normal 4.0-15.0 [facility] Comment on above: Performed By: #### A MD FARHADW, PRO, TROPHS, GFR, ANEU, CBC, PBNP, BMP ####[address] [address] Glucose [Mass/Vol] 157 mg/dL High 70-105 [facility] Comment on above: Performed By: #### A ELY LLAMAS, PRO, TROPHS, GFR, ANEU, CBC, PBNP, BMP ####[address] [address] Potassium [Moles/Vol] 3.1 mmol/L Low 3.5-5.1 [facility] Comment on above: Performed By: #### A ELY LLAMAS, PRO, TROPHS, GFR, ANEU, CBC, PBNP, BMP ####[address] [address] Sodium [Moles/Vol] 138 mmol/L Normal 136-145 [facility] Comment on above: Performed By: #### A ELY LLAMAS, PRO, TROPHS, GFR, ANEU, CBC, PBNP, BMP ####[address] [address] Urea nitrogen [Mass/Vol] 12 mg/dL Normal 7-18 [facility] Comment on above: Performed By: #### A ELY LLAMAS, PRO, TROPHS, GFR, ANEU, CBC, PBNP, BMP ####[address] [address] CAIONon 10-02-2024 Calcium Ionized 1.09 mmol/L Low 1.12-1.32 [facility] Comment on above: Performed By: #### M G, GFR, ANEU, ADIFF, CBC, CMP, A1C, LIPID #### [facility] [address] [place] [address] CBCon 10-02-2024 Erythrocyte distribution width (RBC) [Ratio] 16.6 % High 11.5-15.5 [facility] Comment on above: Performed By: #### M G, GFR, ANEU, ADIFF, CBC, CMP, A1C, LIPID #### [place] [id number] Hematocrit (Bld) [Volume fraction] 47.4 % Normal 40.0-52.0 [facility] Comment on above: Performed By: #### M G, GFR, ANEU, ADIFF, CBC, CMP, A1C, LIPID #### [place] [id number] Hgb 15.6 G/dL Normal 13.0-17.5 [facility] Comment on above: Performed By: #### M G, GFR, ANEU, ADIFF, CBC, CMP, A1C, LIPID #### [place] [id number] MCH (RBC) [Entitic mass] 28.7 pg Normal 27.0-33.0 [facility] Comment on above: Performed By: #### M G, GFR, ANEU, ADIFF, CBC, CMP, A1C, LIPID #### [place] [id number] MCHC 32.9 G/dL Normal 32.0-36.0 [facility] Comment on above: Performed By: #### M G, GFR, ANEU, ADIFF, CBC, CMP, A1C, LIPID #### [place] [id number] MCV (RBC) [Entitic vol] 87.2 fL Normal 81.0-100.0 [facility] Comment on above: Performed By: #### M G, GFR, ANEU, ADIFF, CBC, CMP, A1C, LIPID #### [place] [id number] Platelet 139 10 3/mcL Low 150-450 [facility] Comment on above: Performed By: #### M G, GFR, ANEU, ADIFF, CBC, CMP, A1C, LIPID #### [place] [id number] Platelet mean volume (Bld) [Entitic vol] 7.7 fL Normal 6.4-10.5 [facility] Comment on above: Performed By: #### M G, GFR, ANEU, ADIFF, CBC, CMP, A1C, LIPID #### [address] [address] RBC 5.44 10 6/mcL Normal 4.50-6.00 [facility] Comment on above: Performed By: #### M G, GFR, ANEU, ADIFF, CBC, CMP, A1C, LIPID #### [place] [address] WBC 6.6 10 3/mcL Normal 4.5-10.8 [facility] Comment on above: Performed By: #### M G, GFR, ANEU, ADIFF, CBC, CMP, A1C, LIPID #### [place] [address] Erythrocyte distribution width (RBC) [Ratio] 16.6 % High 11.5-15.5 [facility] Comment on above: Performed By: #### A DIFF, MDW, PRO, TROPHS, GFR, ANEU, CBC, PBNP, BMP ####[address] [address] Hematocrit (Bld) [Volume fraction] 51.4 % Normal 40.0-52.0 [facility] Comment on above: Performed By: #### A DIFF, MDW, PRO, TROPHS, GFR, ANEU, CBC, PBNP, BMP ####[address] [address] Hgb 17.1 G/dL Normal 13.0-17.5 [facility] Comment on above: Performed By: #### A DIFF, MDW, PRO, TROPHS, GFR, ANEU, CBC, PBNP, BMP ####[address] [address] MCH (RBC) [Entitic mass] 28.9 pg Normal 27.0-33.0 [facility] Comment on above: Performed By: #### A DIFF, MDW, PRO, TROPHS, GFR, ANEU, CBC, PBNP, BMP ####[address] [address] MCHC 33.3 G/dL Normal 32.0-36.0 [facility] Comment on above: Performed By: #### A DIFF, MDW, PRO, TROPHS, GFR, ANEU, CBC, PBNP, BMP ####[facility] [place], [place] [address] MCV (RBC) [Entitic vol] 86.7 fL Normal 81.0-100.0 [facility] Comment on above: Performed By: #### A DIFF, MDW, PRO, TROPHS, GFR, ANEU, CBC, PBNP, BMP ####[address] [place], [place] [address] Platelet 199 10 3/mcL Normal 150-450 [facility] Comment on above: Performed By: #### A DIFF, W, PRO, TROPHS, GFR, ANEU, CBC, PBNP, BMP ####[address] [place] [id number] Platelet mean volume (Bld) [Entitic vol] 7.3 fL Normal 6.4-10.5 [facility] Comment on above: Performed By: #### A FARHAD, ELY, PRO, TROPHS, GFR, ANEU, CBC, PBNP, BMP ####[address] [place], [place] [address] RBC 5.93 10 6/mcL Normal 4.50-6.00 [facility] Comment on above: Performed By: #### A DIFFELY, PRO, TROPHS, GFR, ANEU, CBC, PBNP, BMP ####[facility] [place], [place] [address] WBC 10.9 10 3/mcL High 4.5-10.8 [facility] Comment on above: Performed By: #### A DIFF, MDPoli, PRO, TROPHS, GFR, ANEU, CBC, PBNP, BMP ####[facility] [place], [place] [address] CMPon 10-02-2024 Albumin Level 3.2 G/dL Normal 3.2-4.8 [facility] Comment on above: Performed By: #### M G, GFR, ANEU, ADIFF, CBC, CMP, A1C, LIPID #### [place] [id number] Albumin/Globulin [Mass ratio] 0.9 {ratio} Normal 0.9-1.6 [facility] Comment on above: Performed By: #### M G, GFR, ANEU, ADIFF, CBC, CMP, A1C, LIPID #### [place] [id number] ALP [Catalytic activity/Vol] 60 U/L Normal 38-126 [facility] Comment on above: Performed By: #### M G, GFR, ANEU, ADIFF, CBC, CMP, A1C, LIPID #### [place] [id number] ALT/SGPT <8 Low 12-55 [facility] Comment on above: Performed By: #### M G, GFR, ANEU, ADIFF, CBC, CMP, A1C, LIPID #### [place] [id number] AST [Catalytic activity/Vol] 15 U/L Normal 8-34 [facility] Comment on above: Performed By: #### M G, GFR, ANEU, ADIFF, CBC, CMP, A1C, LIPID #### [place] [id number] Bili Total 0.60 mg/dL Normal 0.20-1.20 [facility] Comment on above: Result Comment: Use of this assay is not recommended for patients undergoing treatment with eltrombopag due to the potential for falsely elevated results. Performed By: #### M G, GFR, ANEU, ADIFF, CBC, CMP, A1C, LIPID #### [place] [id number] BUN/Creatinine Ratio 15.5 ratio Normal 10.0-22.0 [facility] Comment on above: Performed By: #### M G, GFR, ANEU, ADIFF, CBC, CMP, A1C, LIPID #### [place] [id number] Calcium [Mass/Vol] 8.4 mg/dL Low 8.7-10.[address] [facility] Comment on above: Performed By: #### M G, GFR, ANEU, ADIFF, CBC, CMP, A1C, LIPID #### [address] [address] Chloride [Moles/Vol] 102 mmol/L Normal 98-110 [facility] Comment on above: Performed By: #### M G, GFR, ANEU, ADIFF, CBC, CMP, A1C, LIPID #### [address] [address] CO2 [Moles/Vol] 25 mmol/L Normal 22-32 [facility] Comment on above: Performed By: #### M G, GFR, ANEU, ADIFF, CBC, CMP, A1C, LIPID #### [address] [address] Creatinine [Mass/Vol] 0.71 mg/dL Normal 0.60-1.40 [facility] Comment on above: Result Comment: Test ing performed on [employer] analyzer using enzymatic creatinine methodology. Performed By: #### M G, GFR, ANEU, ADIFF, CBC, CMP, A1C, LIPID #### [address] [address] Electrolyte Balance 12.0 mEq/L Normal 4.0-15.0 [facility] Comment on above: Performed By: #### M G, GFR, ANEU, ADIFF, CBC, CMP, A1C, LIPID #### [address] [address] Globulin 3.5 G/dL Normal 2.5-4.2 [facility] Comment on above: Performed By: #### M G, GFR, ANEU, ADIFF, CBC, CMP, A1C, LIPID #### [address] [address] Glucose [Mass/Vol] 109 mg/dL Normal 70-[address] [facility] Comment on above: Performed By: #### M G, GFR, ANEU, ADIFF, CBC, CMP, A1C, LIPID #### [address] [address] Potassium [Moles/Vol] 3.5 mmol/L Normal 3.5-5.0 [facility] Comment on above: Performed By: #### M G, GFR, ANEU, ADIFF, CBC, CMP, A1C, LIPID #### [place] [id number] [place] [address] Sodium [Moles/Vol] 139 mmol/L Normal 136-[address] [facility] Comment on above: Performed By: #### M G, GFR, ANEU, ADIFF, CBC, CMP, A1C, LIPID #### [address] [address] Total Protein 6.7 G/dL Normal 5.7-8.2 [facility] Comment on above: Performed By: #### M G, GFR, ANEU, ADIFF, CBC, CMP, A1C, LIPID #### [address] [address] Urea nitrogen [Mass/Vol] 11.0 mg/dL Normal 8.0-22.0 [facility] Comment on above: Performed By: #### M G, GFR, ANEU, ADIFF, CBC, CMP, A1C, LIPID #### [address] [address] LABORATORYOrdered By: SYSTEM SYSTEM on 10-02-2024 aPTT [...] 29.3 s Normal 25.0 - 35.0 seconds AH [...] above: Interpretive Data: T esting performed on [employer] analyzer using enzymatic creatinine methodology. Electrolyte Balance [...] 109 mg/dL Normal 70 - 110 mg/dL AH ADM SS Hematocrit (Bld) [Volume fraction] 47.4 % Normal 40.0 - 52.0 % AH Workflow SS Hemoglobin (Bld) [Mass/Vol] 15.6 G/dL Normal 13.0 - 17.5 G/dL AH Workflow SS Lymphocytes (Bld) [#/Vol] 1.2 103/mcL Normal 0.9 - 4.3 10^3/mcL AH Workflow SS Lymphocytes/100 WBC (Bld) 18.1 % Low 20.0 - 40.0 % AH Workflow SS Magnesium [Mass/Vol] 1.8 mg/dL Normal [...] 10^3/mcL AH Workflow SS Monocytes/100 WBC (Bld) 10.0 % Normal 2.0 - 13.0 % AH Workflow SS Natriuretic peptide.B prohormone N-Terminal IA [Mass/Vol] 2223 pg/mL High 0 - 900 pg/mL AH ADM SS Neutrophils (Bld) [#/Vol] 4.7 103/mcL Normal 2.3 - 8.1 10^3/mcL AH Workflow SS Neutrophils/100 WBC (Bld) 70.3 % Normal 50.0 - 75.0 % AH Workflow SS Phosphate [Mass/Vol] 2.2 mg/dL Low [...] Normal 9.0 - 1 4.4 seconds [facility] SS Comment on above: Interpretive Data: E ffective 12/11/07, Protime results may be affected by some antibiotics (i.e. Ciprofloxacin, Azithromycin, Bactrim) which may potentiate the action of oral anticoagulants, with further increases in Protime/INR. PT International Ratio 1.2 ratio Invalid Interpretation Code [facility] Comment on above: Interpretive Data: Baljinder linn [employer] (CHEST, 1992, 102:312S-25S) [...] ng/L Male: 0-54 ng/L Testing performed on [employer] analyzer using direct chemiluminescent technology. TSH Qn [...] ng/L Male: 0-76 ng/L Testing performed on [employer] using a homogeneous sandwich chemiluminescent immunoassay based on [email or web address] technology. Basophils (Bld) [#/Vol] 0.1 103/mcL Normal [...] Comment on above: Interpretive Data: Baljinder linn [employer] (CHEST, 1991, 102:312S-25S) [...] ng/L Male: 0-76 ng/L Testing performed on [employer] using a homogeneous sandwich chemiluminescent immunoassay based on [email or web address] technology. Urea nitrogen [Mass/Vol] 12 mg/dL Normal 7 - 18 mg/dL AO ADM SS Urea nitrogen/Creatinine [Mass ratio] 14 ratio Normal 7 - 27 ratio AO ADM SS WBC (Bld) [#/Vol] 10.9 103/mcL High 4.5 - 10.8 10^3/mcL AO Workflow SS LABORATORYOrdered By: Nelli Lindsey on 10-02-2024 Calcium Ionized 1.09 mmol/L Low 1.12 - 1.32 mmol/L AH Main Rapid Comm SS MGon 10-02-2024 Magnesium [Mass/Vol] 1.8 mg/dL Normal 1.6-2.4 [facility] Comment on above: Performed By: #### M G, GFR, ANEU, ADIFF, CBC, CMP, A1C, LIPID #### [address] [address] Magnesium [Mass/Vol] 1.7 mg/dL Low 1.8-2.4 [facility] Comment on above: Performed By: #### M G ####[facility] [place], [place] [address] PBNPon 10-02-2024 Natriuretic peptide B (Bld) [Mass/Vol] 2223 pg/mL High 0-900 [facility] Comment on above: Performed By: #### M G, GFR, ANEU, ADIFF, CBC, CMP, A1C, LIPID #### [address] [address] Natriuretic peptide B (Bld) [Mass/Vol] 973 pg/mL High 0-125 [facility] Comment on above: Result Comment: NT-p roBNP results of less than 300 pg/mL effectively rules out acute congestive heart failure with 99% negative predictive value. Performed By: #### A ELY LLAMAS, PRO, TROPHS, GFR, ANEU, CBC, PBNP, BMP ####[address] [place], [place] [address] PHOSon 10-02-2024 Phosphate [Mass/Vol] 2.2 mg/dL Low 2.4-5.1 [facility] Comment on above: Result Comment: No te - New Reference Range in effect 19 Performed By: #### M G, GFR, ANEU, ADIFF, CBC, CMP, A1C, LIPID #### [address] [address] PROon 10-02-2024 INR Coag (PPP) [Relative time] 1.2 {INR} Normal [facility] Comment on above: Result Comment: [employer] (CHEST, 1992, 102:312S-25S) recommended therapeutic range for oral anticoagulant therapy is: LOW RISK: Prophylaxis of venous thrombosis INR: 2.0-3.0 Treatment of pulmonary embolism 2.0-3.0 Prevention of systemic embolism 2.0-3.0 HIGH RISK: Mechanical prosthetic valves 2.5-3.5 Performed By: #### M G, GFR, ANEU, ADIFF, CBC, CMP, A1C, LIPID #### [address] [address] PT Coag (PPP) [Time] 13.4 s Normal 9.0-14.4 [facility] Comment on above: Result Comment: Effe ctive 12/11/07, Protime results may be affected by some antibiotics (i.e. Ciprofloxacin, Azithromycin, Bactrim) which may potentiate the action of oral anticoagulants, with further increases in Protime/INR. Performed By: #### M [place], GFR, ANEU, ADIFF, CBC, CMP, A1C, LIPID #### [place] [id number] [place] [address] PT Coag (PPP) [Time] 13.5 s Normal 9.0-14.4 [facility] Comment on above: Performed By: #### A ELY LLAMAS, PRO, TROPHS, GFR, ANEU, CBC, PBNP, BMP ####[place] [address] [place], [place] [address] PT International Ratio 1.2 Normal [facility] Comment on above: Result Comment: [employer] (CHEST, 1992, 102:312S-25S) recommended therapeutic range for oral anticoagulant therapy is: LOW RISK: Prophylaxis of venous thrombosis INR: 2.0-3.0 Treatment of pulmonary embolism 2.0-3.0 Prevention of systemic embolism 2.0-3.0 HIGH RISK: Mechanical prosthetic valves 2.5-3.5 Performed By: #### A ELY LLAMAS, PRO, TROPHS, GFR, ANEU, CBC, PBNP, BMP ####[place] [address] [place], [place] [address] TROPHSon 10-02-2024 High Sensitivity Troponin I 6 ng/L Normal 0-54 [facility] Comment on above: Result Comment: High Sensitive Troponin I Reference Ranges: Female: 0-34 ng/L Male: 0-54 ng/L Testing performed on [employer] analyzer using direct chemiluminescent technology. Performed By: #### M G, GFR, ANEU, ADIFF, CBC, CMP, A1C, LIPID #### [address] [address] High Sensitivity Troponin I 9 ng/L Normal 0-76 [facility] Comment on above: Result Comment: High Sensitive Troponin I Reference Ranges: Female: 0-51 ng/L Male: 0-76 ng/L Testing performed on [employer] using a homogeneous sandwich chemiluminescent immunoassay based on [email or web address] technology. Performed By: #### T ROP ####[address] [place], [place] [address] High Sensitivity Troponin I 9 ng/L Normal 0-76 [facility] Comment on above: Result Comment: High Sensitive Troponin I Reference Ranges: Female: 0-51 ng/L Male: 0-76 ng/L Testing performed on [employer] using a homogeneous sandwich chemiluminescent immunoassay based on [email or web address] technology. Performed By: #### A DIFF, MDW, PRO, TROPHS, GFR, ANEU, CBC, PBNP, BMP ####[address] [place], [place] [address] TSHon 10-02-2024 TSH 1.923 mIU/mL Normal 0.550-4.780 [facility] Comment on above: Performed By: #### M G, GFR, ANEU, ADIFF, CBC, CMP, A1C, LIPID #### [address] [address] XR CHEST 1 VIEWon 10-02-2024 XR CHEST [...] 10/02/2024 2:02:33 AM Ordering Provider: DELORES MURO [facility] XR ANKLE MINIMUM 3 VIEWS [...] 08/29/2024 3:52:38 PM Ordering Provider: EDER FARFAN [facility] XR CHEST 2 VIEWSon XR [...] 08/29/2024 4:51:29 PM Ordering Provider: ISADORA Kate [facility] .Auto Diffon 08-13-2024 Basophil, Absolute 0.0 10 3/mcL Normal 0.0-0.2 [facility] Comment on above: Performed By: #### A ERIC, GFR, CBC, CMP, PBNP, ADRAMANA MARTÍNEZ MDW ####[place] [address] [place], [place] [address] Basophils/100 WBC (Bld) 0.7 % Normal 0.0-2.5 [facility] Comment on above: Performed By: #### A ERIC, GFR, CBC, CMP, PBNP, ADMAURICIO, ELY BOLES ####[facility] [place], [place] [address] Eosinophil, Absolute 0.1 10 3/mcL Normal 0.0-0.7 [facility] Comment on above: Performed By: #### A ERIC, GFR, CBC, CMP, PBNP, ADRAMANA MARTÍNEZ MDW ####[address] [address] Eosinophils/100 WBC (Bld) 1.3 % Normal 0.0-7.0 [facility] Comment on above: Performed By: #### A ERIC, GFR, CBC, CMP, PBNP, RAMANA FOUNTAIN MDW ####[facility] [place], [place] [address] Lymphocyte, Absolute 0.8 10 3/mcL Low 0.9-4.3 [facility] Comment on above: Performed By: #### A ERIC, GFR, CBC, CMP, PBNP, ADRAMANA MARTÍNEZ MDW ####[address] [place], [place] [address] Lymphocytes/100 WBC (Bld) 19.9 % Low 20.0-40.0 [facility] Comment on above: Performed By: #### A ERIC, GFR, CBC, CMP, PBNP, RAMANA FOUNTAIN MDW ####[address] [place], [place] [address] Monocyte, Absolute 0.3 10 3/mcL Normal 0.1-1.4 [facility] Comment on above: Performed By: #### A ERIC, GFR, CBC, CMP, PBNP, RAMANA FOUNTAIN MDW ####[address] [place], [place] [address] Monocytes/100 WBC (Bld) 6.9 % Normal 2.0-13.0 [facility] Comment on above: Performed By: #### A ERIC, GFR, CBC, CMP, PBNP, RAMANA FOUNTAIN MDW ####[address] [place], [place] [address] Neutrophils/100 WBC (Bld) 71.2 % Normal 50.0-75.0 [facility] Comment on above: Performed By: #### A ERIC, GFR, CBC, CMP, PBBAY, RAMANA FOUNTAIN MDW ####[address] [place], [place] [address] .GFRon 08-13-2024 Estimated Glomerular Filtration Rate 107 ml/min/1.73sqm Normal [facility] Comment on above: Result Comment: Stages of [...] GFR, CBC, CMP, PBNP, RAMANA FOUNTAIN MDW ####[address] [place] [id number] .MDWon 08-13-2024 Monocyte Distribution Width 19.39 Normal 0.00-20.00 [facility] Comment on above: Result Comment: For ED adult patients suspected of sepsis, MDW<=20.0 does not rule out sepsis or risk of sepsis Performed By: #### A ERIC, GFR, CBC, CMP, PBNP, ADRAMANA MARTÍNEZ MDW ####[address] [place] [id number] .NEUABSon 08-13-2024 Neutrophil, Absolute 2.9 10 3/mcL Normal 2.3-8.1 [facility] Comment on above: Performed By: #### A ERIC, GFR, CBC, CMP, PBBAY, RAMANA FOUNTAIN MDW ####[address] [address] CBCon 08-13-2024 Erythrocyte distribution width (RBC) [Ratio] 17.1 % High 11.5-15.5 [facility] Comment on above: Performed By: #### A ERIC, GFR, CBC, CMP, PBNP, RAMANA FOUNTAIN MDW ####[address] [place] [address] Hematocrit (Bld) [Volume fraction] 42.8 % Normal 40.0-52.0 [facility] Comment on above: Performed By: #### A ERIC, GFR, CBC, CMP, PBNP, RAMANA FOUNTAIN MDW ####[place] [address] [address] Hgb 14.0 G/dL Normal 13.0-17.5 [facility] Comment on above: Performed By: #### A ERIC, GFR, CBC, CMP, PBNP, RAMANA FOUNTAIN MDW ####[place] [address] [address] MCH (RBC) [Entitic mass] 27.9 pg Normal 27.0-33.0 [facility] Comment on above: Performed By: #### A ERIC, GFR, CBC, CMP, JULIOCESAR, RAMANA FOUNTAIN MDW ####[address] [place], [place] [address] MCHC 32.8 G/dL Normal 32.0-36.0 [facility] Comment on above: Performed By: #### A ERIC, GFR, CBC, CMP, PBNP, RAMANA FOUNTAIN MDW ####[address] [place], [place] [id number] MCV (RBC) [Entitic vol] 84.9 fL Normal 81.0-100.0 [facility] Comment on above: Performed By: #### A ERIC, GFR, CBC, CMP, PBNP, RAMANA FOUNTAIN MDW ####Larry [address] [place], [place] [address] Platelet 137 10 3/mcL Low 150-450 [facility] Comment on above: Performed By: #### A ERIC, GFR, CBC, CMP, PBNP, RAMANA FOUNTAIN MDW ####Larry [address] [place], [place] [address] Platelet mean volume (Bld) [Entitic vol] 6.7 fL Normal 6.4-10.5 [facility] Comment on above: Performed By: #### A ERIC, GFR, CBC, CMP, PBBAY, RAMANA FOUNTAIN MDW ####Larry [place] [id number] RBC 5.04 10 6/mcL Normal 4.50-6.00 [facility] Comment on above: Performed By: #### A ERIC, GFR, CBC, CMP, PBBAY, RAMANA FOUNTAIN MDW ####Larry [address] [place] [id number] WBC 4.1 10 3/mcL Low 4.5-10.8 [facility] Comment on above: Performed By: #### A ERIC, GFR, CBC, CMP, PBNP, RAMANA FOUNTAIN MDW ####[address] [place], [place] [address] CMPon 08-13-2024 Albumin Level 3.3 G/dL Low 3.5-5.0 [facility] Comment on above: Performed By: #### A ERIC, GFR, CBC, CMP, PBNP, ADRAMANA MARTÍNEZ MDW ####[address] [place], [place] [address] Albumin/Globulin [Mass ratio] 0.8 {ratio} Low 1.1-2.5 [facility] Comment on above: Performed By: #### A ERIC, GFR, CBC, CMP, PBNP, RAMANA FOUNTAIN MDW ####[address] [place], [place] [address] ALP [Catalytic activity/Vol] 76 U/L Normal 40-135 [facility] Comment on above: Performed By: #### A ERIC, GFR, CBC, CMP, PBNP, RAMANA FOUNTAIN MDW ####[address] [place], [place] [address] ALT [Catalytic activity/Vol] 10 U/L Low 16-63 [facility] Comment on above: Performed By: #### A ERIC, GFR, CBC, CMP, PBNP, RAMANA FOUNTAIN MDW ####[address] [place], [place] [address] AST [Catalytic activity/Vol] 14 U/L Normal 10-40 [facility] Comment on above: Performed By: #### A ERIC, GFR, CBC, CMP, PBNP, RAMANA FOUNTAIN MDW ####[address] [place], [place] [address] Bili Total 0.4 mg/dL Normal 0.2-1.0 [facility] Comment on above: Result Comment: Use of this assay is not recommended for patients undergoing treatment with eltrombopag due to the potential for falsely elevated results. Performed By: #### A ERIC, GFR, CBC, CMP, PBNP, RAMANA FOUNTAIN MDW ####[address] [place], [place] [address] BUN/Creatinine Ratio 13 ratio Normal 7-27 [facility] Comment on above: Performed By: #### A ERIC, GFR, CBC, CMP, PBBAY, RAMANA FOUNTAIN MDW ####[address] [place], [place] [address] Calcium [Mass/Vol] 8.6 mg/dL Normal 8.4-10.2 [facility] Comment on above: Performed By: #### A ERIC, GFR, CBC, CMP, PBNP, RAMANA FOUNTAIN MDW ####[address] [place], [place] [address] Chloride [Moles/Vol] 101 mmol/L Normal 98-107 [facility] Comment on above: Performed By: #### A ERIC, GFR, CBC, CMP, PBBAY, RAMANA FOUNTAIN MDW ####[address] [place], [place] [address] CO2 [Moles/Vol] 35 mmol/L High 22-29 [facility] Comment on above: Performed By: #### A ERIC, GFR, CBC, CMP, PBBAY, RAMANA FOUNTAIN MDW ####[address] [place], [place] [address] Creatinine [Mass/Vol] 0.78 mg/dL Normal 0.70-1.30 [facility] Comment on above: Result Comment: Test ing performed on Siemens Dimension EXL analyzer using a modified kinetic Ciera technique. Performed By: #### A ERIC, GFR, CBC, CMP, PBNP, RAMANA FOUNTAIN MDW ####[address] [place], [place] [address] Electrolyte Balance 2.0 mEq/L Low 4.0-15.0 [facility] Comment on above: Performed By: #### A ERIC, GFR, CBC, CMP, PBBAY, RAMANA FOUNTAIN MDW ####[address] [place], [place] [address] Globulin 3.9 G/dL High 1.5-3.8 [facility] Comment on above: Performed By: #### A ERIC, GFR, CBC, CMP, PBNP, RAMANA FOUNTAIN MDW ####Larry [address] [place], [place] [address] Glucose [Mass/Vol] 105 mg/dL Normal 70-105 [facility] Comment on above: Performed By: #### A ERIC, GFR, CBC, CMP, PBNP, RAMANA FOUNTAIN MDW ####[address] [place], [place] [address] Potassium [Moles/Vol] 3.8 mmol/L Normal 3.5-5.1 [facility] Comment on above: Performed By: #### A ERIC, GFR, CBC, CMP, PBNP, RAMANA FOUNTAIN MDW ####Larry [address] [place], [place] [address] Sodium [Moles/Vol] 138 mmol/L Normal 136-145 [facility] Comment on above: Performed By: #### A ERIC, GFR, CBC, CMP, PBNP, RAMANA FOUNTAIN MDW ####Larry [address] [place], [place] [address] Total Protein 7.2 G/dL Normal 6.4-8.2 [facility] Comment on above: Performed By: #### A ERIC, GFR, CBC, CMP, PBNP, RAMANA FOUNTAIN MDW ####[address] [place], [place] [address] Urea nitrogen [Mass/Vol] 10 mg/dL Normal 7-18 [facility] Comment on above: Performed By: #### A ERIC, GFR, CBC, CMP, PBNP, RAMANA FOUNTAIN MDW ####[facility] [place], [place] [address] CVFLURVon 08-13-2024 FLU A PCR Negative Normal Negative [facility] Comment on above: Performed By: #### C VFLURV ####[facility] [place], [place] [address] FLU B PCR Negative Normal Negative [facility] Comment on above: Performed By: #### C VFLURV ####[address] [place], [place] [address] RSV PCR Negative Normal Negative [facility] Comment on above: Performed By: #### C VFLURV ####Larry [address] [place], [place] [address] SARS-CoV-2 (COVID-19) RNA ROSE+probe Ql (Unsp spec) Negative Normal Negative [facility] Comment on above: Result Comment: Resu lts [...] results. Performed By: #### C VFLURV ####Larry [address] [place], [place] [address] PBNPon 08-13-2024 Natriuretic peptide B (Bld) [Mass/Vol] 456 pg/mL High 0-125 [facility] Comment on above: Result Comment: NT-p roBNP results of less than 300 pg/mL effectively rules out acute congestive heart failure with 99% negative predictive value. Performed By: #### A ERIC, GFR, CBC, CMP, PBNP, ADMAURICIO, ELY BOLES ####[address]ry [address] [place], [place] [address] TROPHSon 08-13-2024 High Sensitivity Troponin I 8 ng/L Normal 0-76 [facility] Comment on above: Result Comment: High Sensitive Troponin I Reference Ranges: Female: 0-51 ng/L Male: 0-76 ng/L Testing performed on Eachpal using a homogeneous sandwich chemiluminescent immunoassay based on [email or web address] technology. Performed By: #### A ERIC, GFR, CBC, CMP, PBNP, ADIFF, ELY BOLES ####[address] [place], [place] [address] XR CHEST 1 VIEWon 08-13-2024 XR CHEST [...] 08/13/2024 11:55:14 AM Ordering Provider: WILNER JOE [facility] .GFRon 05-14-2024 GFR Non- 90 ml/min/1.73sqm [facility] Comment [...] G FR, LIPID, A1C, CMP ####[address] [place], [place] [address] GFR 109 ml/min/1.73sqm Normal [facility] Comment on above: Result Comment: GFR Population [...] #### G FR, LIPID, A1C, CMP ####Larry [address] [place], [place] [address] A1Con 05-14-2024 Glucose [Mass/Vol] 120 mg/dL Normal [facility] Comment on above: Result Comment: Zahida mated Average Glucose calculated by equation ((28.7xA1C)-46.7) Estimated average glucose (eAG) is a calculated value from Hemoglobin A1C and is labor representative of the average blood glucose level in the last 2-3 month period. Normal range: less than 114 mg/dL Performed By: #### G FR, LIPID, A1C, CMP ####[place] [place], [place] [address] HbA1c (Bld) [Mass fraction] 5.8 % Normal 4.3-6.4 [facility] Comment on above: Performed By: #### G FR, LIPID, A1C, CMP ####[address] [place], [place] [address] CMPon 05-14-2024 Albumin Level 3.4 G/dL Low 3.5-5.0 [facility] Comment on above: Performed By: #### G FR, LIPID, A1C, CMP ####Larry [address] [place], [place] [address] Albumin/Globulin [Mass ratio] 0.9 {ratio} Low 1.1-2.5 [facility] Comment on above: Performed By: #### G FR, LIPID, A1C, CMP ####Larry [address] [place], [place] [address] ALP [Catalytic activity/Vol] 87 U/L Normal 40-135 [facility] Comment on above: Performed By: #### G FR, LIPID, A1C, CMP ####Larry [address] [place], [place] [address] ALT [Catalytic activity/Vol] 17 U/L Normal 16-63 [facility] Comment on above: Performed By: #### G FR, LIPID, A1C, CMP ####Larry [address] [place], [place] [address] AST [Catalytic activity/Vol] 12 U/L Normal 10-40 [facility] Comment on above: Performed By: #### G FR, LIPID, A1C, CMP ####Larry [address] [place], [place] [address] Bili Total 0.3 mg/dL Normal 0.2-1.0 [facility] Comment on above: Result Comment: Use of this assay is not recommended for patients undergoing treatment with eltrombopag due to the potential for falsely elevated results. Performed By: #### G FR, LIPID, A1C, CMP ####Larry [address] [place], [place] [address] BUN/Creatinine Ratio 15 ratio Normal 7-27 [facility] Comment on above: Performed By: #### G FR, LIPID, A1C, CMP ####Larry [address] [place], [place] [address] Calcium [Mass/Vol] 8.9 mg/dL Normal 8.4-10.2 [facility] Comment on above: Performed By: #### G FR, LIPID, A1C, CMP ####[address] [place], [place] [address] Chloride [Moles/Vol] 101 mmol/L Normal 98-107 [facility] Comment on above: Performed By: #### G FR, LIPID, A1C, CMP ####Larry [address] [place], [place] [address] CO2 [Moles/Vol] 34 mmol/L High 22-29 [facility] Comment on above: Performed By: #### G FR, LIPID, A1C, CMP ####[address] [place], [place] [address] Creatinine [Mass/Vol] 0.89 mg/dL Normal 0.70-1.30 [facility] Comment on above: Result Comment: Test ing performed on Siemens Dimension EXL analyzer using a modified kinetic Ciera technique. Performed By: #### G FR, LIPID, A1C, CMP ####[address] [place], [place] [address] Electrolyte Balance 5.0 mEq/L Normal 4.0-15.0 [facility] Comment on above: Performed By: #### G FR, LIPID, A1C, CMP ####[address] [place], [place] [address] Globulin 3.8 G/dL Normal [facility] Comment on above: Performed By: #### G FR, LIPID, A1C, CMP ####[address] [place], [place] [address] Glucose [Mass/Vol] 99 mg/dL Normal 70-105 [facility] Comment on above: Performed By: #### Abbey FR, LIPID, A1C, CMP ####[address] [place], [place] [address] Potassium [Moles/Vol] 4.0 mmol/L Normal 3.5-5.1 [facility] Comment on above: Performed By: #### Abbey FR, LIPID, A1C, CMP ####[address] [place], [place] [address] Sodium [Moles/Vol] 140 mmol/L Normal 136-145 [facility] Comment on above: Performed By: #### G FR, LIPID, A1C, CMP ####[address] [place], [place] [address] Total Protein 7.2 G/dL Normal 6.4-8.2 [facility] Comment on above: Performed By: #### G FR, LIPID, A1C, CMP ####Larry [address] [place], [place] [address] Urea nitrogen [Mass/Vol] 13 mg/dL Normal 7-18 [facility] Comment on above: Performed By: #### G FR, LIPID, A1C, CMP ####Larry [address] [place], [place] [address] LABORATORYOrdered By: SYSTEM SYSTEM on 05-14-2024 Albumin [...] calculated value from Hemoglobin A1C and is labor representative of the average blood glucose level [...] 05-14-2024 Cholesterol [Mass/Vol] 144 mg/dL Normal 0-200 [facility] Comment on above: Result Comment: Chol esterol Reference Interval: Less than 200 Desirable 200-239 Borderline high risk 240 and above High risk Performed By: #### G FR, LIPID, A1C, CMP ####[address] [place], [place] [address] Cholesterol in HDL [Mass/Vol] 24 mg/dL Low 40-60 [facility] Comment on above: Performed By: #### G FR, LIPID, A1C, CMP ####[address] [place], [place] [address] Cholesterol in LDL [Mass/Vol] 72 mg/dL Normal 0-130 [facility] Comment on above: Performed By: #### G FR, LIPID, A1C, CMP ####[address] [place], [place] [address] Triglyceride [Mass/Vol] 242 mg/dL High 0-150 [facility] Comment on above: Result Comment: Trig lyceride Reference Interval: Less than 150 Normal 150-199 Borderline high risk 200-499 High risk 500 or higher Very high risk Performed By: #### G FR, LIPID, A1C, CMP ####[facility] [place], [place] [address] Final Surgical Pathology Rep ezequiel 03-27-2024 Final Surgical Pathology Report . Pathology Reports Accession: Collected Date/Time: Received Date/Time: Pathologist: [id number] 03/25/2024 15:47 EDT 03/26/2024 07:38 EDT COREY WILBURN MD Final Surgical Pathology Report DIAGNOSIS: RIGHT ARM EXCISION: - GLOMANGIOMYOMA CLINICAL INFORMATION: SKIN LESION Procedure: EXCISION Preoperative diagnosis: SKIN LESION Postoperative diagnosis: SKIN LESION SPECIMEN: A RIGHT ARM GROSS DESCRIPTION: All parts labelled with patient name and [id number] Received in formalin labelled right arm excision Is a unoriented ellipse of skin measuring 1.5 x 0.4 and excised to depth of 1.2 cm. Excision margin inked black. Skin surface grossly unremarkable, located within the underlying soft tissue is a santillan firm well-circumscribed possible mass/lymph node measuring 0.6 x 0.6 x 0.6 cm. TS-2 Austin Somers, Pathologists' Buggy Ladle Tender (ASCP) Performed by [facility] MICROSCOPIC DESCRIPTION: The microscopic examination is performed, except in the case of Gross Only. Electronically Signed by Pathology Report verified by [facility] COREY WILBURN Sign out Date: 03/27/2024 16:10 Performing Lab: [facility], [address] [place] [address] Pathology Dept Disclaimer If ancillary studies were utilized, the following Laboratory Developed Test (LDT) disclaimer will apply: Under CLIA requirements, [facility] is qualified to perform high complexity testing. For all ancillary stains, positive and negative controls stain appropriately. Performance characteristics of immunohistochemical and chromogenic in-situ hybridization tests have been determined by [facility]. These tests are used for clinical purposes, They should not be regarded as investigational or for research. Normal [facility] US SOFT TISSUE MASS OF RT AR [...] 11:09:23 AM Ordering Provider: ISADORA CORREA Normal [facility] TSHon 02-15-2024 TSH Qn 1.65 m[IU]/L Normal 0.36-3.74 [facility] Comment on above: Performed By: #### T ####[facility] [place], [place] [address] .GFRon 02-12-2024 GFR 95 ml/min/1.73sqm Normal [facility] Comment on above: Result Comment: GFR Population [...] P SA, CMP, GFR, LIPID, A1C #### [address] [address] GFR Non- 78 ml/min/1.73sqm Normal [facility] Comment on above: Result Comment: GFR Population [...] P SA, CMP, GFR, LIPID, A1C #### [address] [address] A1Con 02-12-2024 Glucose [Mass/Vol] 131 mg/dL Normal [facility] Comment on above: Result Comment: Zahida mated Average Glucose calculated by equation ((28.7xA1C)-46.7) Estimated average glucose (eAG) is a calculated value from Hemoglobin A1C and is labor representative of the average blood glucose level in the last 2-3 month period. Normal range: less than 114 mg/dL Performed By: #### P SA, CMP, GFR, LIPID, A1C #### [address] [address] HbA1c (Bld) [Mass fraction] 6.2 % Normal 4.3-6.4 [facility] Comment on above: Performed By: #### P SA, CMP, GFR, LIPID, A1C #### [address] [address] CMPon 02-12-2024 Albumin Level 3.3 G/dL Low 3.5-5.0 [facility] Comment on above: Performed By: #### P SA, CMP, GFR, LIPID, A1C #### [address] [address] Albumin/Globulin [Mass ratio] 0.9 {ratio} Low 1.1-2.5 [facility] Comment on above: Performed By: #### P SA, CMP, GFR, LIPID, A1C #### [address] [address] ALP [Catalytic activity/Vol] 74 U/L Normal 40-135 [facility] Comment on above: Performed By: #### P SA, CMP, GFR, LIPID, A1C #### [address] [address] ALT [Catalytic activity/Vol] 20 U/L Normal 16-63 [facility] Comment on above: Performed By: #### P SA, CMP, GFR, LIPID, A1C #### [address] [address] AST [Catalytic activity/Vol] 13 U/L Normal 10-40 [facility] Comment on above: Performed By: #### P SA, CMP, GFR, LIPID, A1C #### [address] [address] Bili Total 0.5 mg/dL Normal 0.2-1.0 [facility] Comment on above: Result Comment: Use of this assay is not recommended for patients undergoing treatment with eltrombopag due to the potential for falsely elevated results. Performed By: #### P SA, CMP, GFR, LIPID, A1C #### [address] [address] BUN/Creatinine Ratio 6 ratio Low 7-27 [facility] Comment on above: Performed By: #### P SA, CMP, GFR, LIPID, A1C #### [address] [address] Calcium [Mass/Vol] 8.5 mg/dL Normal 8.4-10.2 [facility] Comment on above: Performed By: #### P SA, CMP, GFR, LIPID, A1C #### [address] [address] Chloride [Moles/Vol] 100 mmol/L Normal 98-107 [facility] Comment on above: Performed By: #### P SA, CMP, GFR, LIPID, A1C #### [address] [address] CO2 [Moles/Vol] 34 mmol/L High 22-29 [facility] Comment on above: Performed By: #### P SA, CMP, GFR, LIPID, A1C #### [place] [id number] Creatinine [Mass/Vol] 1.00 mg/dL Normal 0.70-1.30 [facility] Comment on above: Result Comment: Test ing performed on Siemens Dimension EXL analyzer using a modified kinetic Ciera technique. Performed By: #### P SA, CMP, GFR, LIPID, A1C #### [address] [address] Electrolyte Balance 4.0 mEq/L Normal 4.0-15.0 [facility] Comment on above: Performed By: #### P SA, CMP, GFR, LIPID, A1C #### [address] [address] Globulin 3.8 G/dL Normal [facility] Comment on above: Performed By: #### P SA, CMP, GFR, LIPID, A1C #### [address] [address] Glucose [Mass/Vol] 80 mg/dL Normal 70-105 [facility] Comment on above: Performed By: #### P SA, CMP, GFR, LIPID, A1C #### [address] [address] Potassium [Moles/Vol] 4.3 mmol/L Normal 3.5-5.1 [facility] Comment on above: Performed By: #### P SA, CMP, GFR, LIPID, A1C #### [address] [address] Sodium [Moles/Vol] 138 mmol/L Normal 136-145 [facility] Comment on above: Performed By: #### P SA, CMP, GFR, LIPID, A1C #### [place] [address] [place], [place] [address] Total Protein 7.1 G/dL Normal 6.4-8.2 [facility] Comment on above: Performed By: #### P SA, CMP, GFR, LIPID, A1C #### [facility] [address] [place], [place] [address] Urea nitrogen [Mass/Vol] 6 mg/dL Low 7-18 [facility] Comment on above: Performed By: #### P SA, CMP, GFR, LIPID, A1C #### [facility] [address] [place], [place] [address] LABORATORYOrdered By: SYSTEM SYSTEM on 02-12-2024 Albumin [...] calculated value from Hemoglobin A1C and is labor representative of the average blood glucose level [...] 02-12-2024 Cholesterol [Mass/Vol] 117 mg/dL Normal 0-200 [facility] Comment on above: Result Comment: Chol esterol Reference Interval: Less than 200 Desirable 200-239 Borderline high risk 240 and above High risk Performed By: #### P SA, CMP, GFR, LIPID, A1C #### [place] [address] [place], [place] [address] Cholesterol in HDL [Mass/Vol] 25 mg/dL Low 40-60 [facility] Comment on above: Performed By: #### P SA, CMP, GFR, LIPID, A1C #### [place] [address] [place], [place] [address] Cholesterol in LDL [Mass/Vol] 53 mg/dL Normal 0-130 [facility] Comment on above: Performed By: #### P SA, CMP, GFR, LIPID, A1C #### [address] [address] Triglyceride [Mass/Vol] 196 mg/dL High 0-150 [facility] Comment on above: Result Comment: Trig lyceride Reference Interval: Less than 150 Normal 150-199 Borderline high risk 200-499 High risk 500 or higher Very high risk Performed By: #### P SA, CMP, GFR, LIPID, A1C #### [address] [address] PSAon 02-12-2024 Prostate Specific Antigen 0.25 ng/mL Normal 0.00-4.00 [facility] Comment on above: Performed By: #### P SA, CMP, GFR, LIPID, A1C #### [address] [address] .Auto Diffon 02-01-2024 Basophil, Absolute 0.1 10 3/mcL Normal 0.0-0.3 [facility] ([place]) Comment on above: Performed By: #### A DIFF, TROPHS, GFR, BMP, MDW, CBC, PBNP, ANEU #### [address] [address] Basophils/100 WBC (Bld) 0.8 % Normal 0.0-2.5 [facility] ([place]) Comment on above: Performed By: #### A DIFF, TROPHS, GFR, BMP, MDW, CBC, PBNP, ANEU #### [address] [address] Eosinophil, Absolute 0.1 10 3/mcL Normal 0.0-0.7 [facility] ([place]) Comment on above: Performed By: #### A DIFF, TROPHS, GFR, BMP, MDW, CBC, PBNP, ANEU #### [address] [address] Eosinophils/100 WBC (Bld) 1.2 % Normal 0.0-6.0 [facility] ([place]) Comment on above: Performed By: #### A DIFF, TROPHS, GFR, BMP, MDW, CBC, PBNP, ANEU #### [address] [address] Lymphocyte, Absolute 1.4 10 3/mcL Normal 0.9-4.3 [facility] ([place]) Comment on above: Performed By: #### A DIFF, TROPHS, GFR, BMP, MDW, CBC, PBNP, ANEU #### [address] [address] Lymphocytes/100 WBC (Bld) 19.9 % Low 20.0-40.0 [facility] ([place]) Comment on above: Performed By: #### A DIFF, TROPHS, GFR, BMP, MDW, CBC, PBNP, ANEU #### [address] [address] Monocyte, Absolute 0.7 10 3/mcL Normal 0.1-1.4 [facility] ([place]) Comment on above: Performed By: #### A DIFF, TROPHS, GFR, BMP, MDW, CBC, PBNP, ANEU #### [address] [address] Monocytes/100 WBC (Bld) 9.4 % Normal 2.0-13.0 [facility] ([place]) Comment on above: Performed By: #### A DIFF, TROPHS, GFR, BMP, MDW, CBC, PBNP, ANEU #### [address] [address] Neutrophils/100 WBC (Bld) 68.7 % Normal 50.0-75.0 [facility] ([place]) Comment on above: Performed By: #### A DIFF, TROPHS, GFR, BMP, MDW, CBC, PBNP, ANEU #### [address] [address] .GFRon 02-01-2024 GFR >60 Normal [facility] ([place]) Comment on above: Result Comment: GFR [...] GFR, BMP, MDW, CBC, PBNP, ANEU #### [address] [address] GFR Non- >60 Normal [facility] ([place]) Comment on above: Result [...] GFR, BMP, MDW, CBC, PBNP, ANEU #### [address] [address] .NEUABSon 02-01-2024 Neutrophil, Absolute 4.8 10 3/mcL Normal 2.3-8.1 [facility] ([place]) Comment on above: Performed By: #### A DIFF, TROPHS, GFR, BMP, MDW, CBC, PBNP, ANEU #### [address] [address] APTTon 02-01-2024 aPTT Coag (Bld) [Time] 47.1 s High 25.0-35.0 [facility] ([place]) Comment on above: Result Comment: For Heparin anticoagulation therapy, the recommended therapeutic range is: 54-77 seconds (APTT Correlation with Anti-Xa therapeutic range of 0.3-0.7 units/ml). PLEASE REFERENCE THE PHARMACY PROTOCOL FOR DOSING. Performed By: #### A DIFF, TROPHS, GFR, BMP, MDW, CBC, PBNP, ANEU #### [address] [address] aPTT Coag (Bld) [Time] 46.1 s High 25.0-35.0 [facility] ([place]) Comment on above: Result Comment: For Heparin anticoagulation therapy, the recommended therapeutic range is: 54-77 seconds (APTT Correlation with Anti-Xa therapeutic range of 0.3-0.7 units/ml). PLEASE REFERENCE THE PHARMACY PROTOCOL FOR DOSING. Performed By: #### A DIFF, TROPHS, GFR, BMP, MDW, CBC, PBNP, ANEU #### [address] [address] BMPon 02-01-2024 BUN/Creatinine Ratio 14.8 ratio Normal 10.0-22.0 [facility] ([place]) Comment on above: Performed By: #### A DIFF, TROPHS, GFR, BMP, MDW, CBC, PBNP, ANEU #### [address] [address] Calcium [Mass/Vol] 8.8 mg/dL Normal 8.7-10.4 [facility] ([place]) Comment on above: Performed By: #### A DIFF, TROPHS, GFR, BMP, MDW, CBC, PBNP, ANEU #### [address] [address] Chloride [Moles/Vol] 100 mmol/L Normal 98-110 [facility] ([place]) Comment on above: Performed By: #### A DIFF, TROPHS, GFR, BMP, MDW, CBC, PBNP, ANEU #### [address] [address] CO2 [Moles/Vol] 32 mmol/L Normal 22-32 [facility] ([place]) Comment on above: Performed By: #### A DIFF, TROPHS, GFR, BMP, MDW, CBC, PBNP, ANEU #### [address] [address] Creatinine [Mass/Vol] 1.15 mg/dL Normal 0.60-1.40 On license of [facility] ([place]) Comment on above: Result Comment: Test ing performed on [employer] analyzer using enzymatic creatinine methodology. Performed By: #### A DIFF, TROPHS, GFR, BMP, MDW, CBC, PBNP, ANEU #### [address] [address] Electrolyte Balance 5.0 mEq/L Normal 4.0-15.0 [facility] ([place]) Comment on above: Performed By: #### A DIFF, TROPHS, GFR, BMP, MDW, CBC, PBNP, ANEU #### [address] [address] Glucose [Mass/Vol] 124 mg/dL High 70-110 [facility] ([place]) Comment on above: Performed By: #### A DIFF, TROPHS, GFR, BMP, MDW, CBC, PBNP, ANEU #### [address] [address] Potassium [Moles/Vol] 3.4 mmol/L Low 3.5-5.0 On license of [facility] ([place]) Comment on above: Performed By: #### A DIFF, TROPHS, GFR, BMP, MDW, CBC, PBNP, ANEU #### [address] [address] Sodium [Moles/Vol] 137 mmol/L Normal 136-145 [facility] ([place]) Comment on above: Performed By: #### A DIFF, TROPHS, GFR, BMP, MDW, CBC, PBNP, ANEU #### [address] [address] Urea nitrogen [Mass/Vol] 17.0 mg/dL Normal 8.0-22.0 [facility] ([place]) Comment on above: Performed By: #### A DIFF, TROPHS, GFR, BMP, MDW, CBC, PBNP, ANEU #### [address] [place] [address] CBCon 02-01-2024 Erythrocyte distribution width (RBC) [Ratio] 16.2 % High 11.5-15.5 [facility] ([place]) Comment on above: Performed By: #### A DIFF, TROPHS, GFR, BMP, MDW, CBC, PBNP, ANEU #### [address] [address] Hematocrit (Bld) [Volume fraction] 40.5 % Normal 40.0-52.0 [facility] ([place]) Comment on above: Performed By: #### A DIFF, TROPHS, GFR, BMP, MDW, CBC, PBNP, ANEU #### [place] [address] Hgb 13.0 G/dL Normal 13.0-17.5 [facility] ([place]) Comment on above: Performed By: #### A DIFF, TROPHS, GFR, BMP, MDW, CBC, PBNP, ANEU #### [place] [address] MCH (RBC) [Entitic mass] 26.0 pg Low 27.0-33.0 [facility] ([place]) Comment on above: Performed By: #### A DIFF, TROPHS, GFR, BMP, MDW, CBC, PBNP, ANEU #### [address] [address] MCHC 32.2 G/dL Normal 32.0-36.0 [facility] ([place]) Comment on above: Performed By: #### A DIFF, TROPHS, GFR, BMP, MDW, CBC, PBNP, ANEU #### [address] [address] MCV (RBC) [Entitic vol] 80.6 fL Low 81.0-100.0 [facility] ([place]) Comment on above: Performed By: #### A DIFF, TROPHS, GFR, BMP, MDW, CBC, PBNP, ANEU #### [place] [id number] Platelet 161 10 3/mcL Normal 150-450 [facility] ([place]) Comment on above: Performed By: #### A DIFF, TROPHS, GFR, BMP, MDW, CBC, PBNP, ANEU #### [address] [address] Platelet mean volume (Bld) [Entitic vol] 6.8 fL Normal 6.4-10.5 [facility] ([place]) Comment on above: Performed By: #### A DIFF, TROPHS, GFR, BMP, MDW, CBC, PBNP, ANEU #### [address] [address] RBC 5.02 10 6/mcL Normal 4.50-6.00 [facility] ([place]) Comment on above: Performed By: #### A DIFF, TROPHS, GFR, BMP, MDW, CBC, PBNP, ANEU #### [address] [address] WBC 6.9 10 3/mcL Normal 4.5-10.8 [facility] ([place]) Comment on above: Performed By: #### A DIFF, TROPHS, GFR, BMP, MDW, CBC, PBNP, ANEU #### [address] [address] LABORATORYOrdered By: SYSTEM SYSTEM on 02-01-2024 aPTT [...] 2.5 % AH Workflow SS Calcium [Mass/Vol] 8.8 mg/dL Normal 8.7 - 10. 4 mg/dL ADM SS Chloride [Moles/Vol] 100 mmol/L Normal 98 - 11 0 mEq/L ADM SS CO2 [Moles/Vol] 32 mmol/L Normal 22 - 32 mEq/L ADM SS Creatinine [Mass/Vol] 1.15 mg/dL Normal 0.60 - 1.40 mg/dL ADM SS Comment on above: Interpretive Data: T esting performed on [employer] analyzer using enzymatic creatinine methodology. Electrolyte Balance [...] 124 mg/dL High 70 - 110 mg/dL AH ADM SS Hematocrit (Bld) [Volume fraction] 40.5 [...] AH ADM SS MCH (RBC) [Entitic mass] 26.0 [...] 6.8 fL Normal 6.4 - 10.5 fL Workflow SS Platelets (Bld) [#/Vol] 161 103/mcL Normal 150 - 450 10^3/mcL AH Workflow SS Potassium [Moles/Vol] 3.4 mmol/L Low 3.5 - 5.0 mEq/L AH ADM SS RBC (Bld) [#/Vol] 5.02 106/mcL Normal 4.50 - 6.0 0 10^6/mcL AH Workflow SS Sodium [Moles/Vol] 137 mmol/L Normal 136 - 145 mEq/L AH ADM SS Urea nitrogen [Mass/Vol] 17.0 mg/dL Normal 8.0 - 22.0 mg/dL ADM SS Urea nitrogen/Creatinine [Mass ratio] 14.8 ratio Normal 10.0 - 22.0 ratio AH ADM SS WBC (Bld) [#/Vol] 6.9 103/mcL Normal 4.5 - 10.8 10^3/mcL Workflow SS MGon 02-01-2024 Magnesium [Mass/Vol] 2.2 mg/dL Normal 1.6-2.4 [facility] ([place]) Comment on above: Performed By: #### A DIFF, TROPHS, GFR, BMP, MDW, CBC, PBNP, ANEU #### [address] [address] .Auto Diffon 01-31-2024 Basophil, Absolute 0.1 10 3/mcL Normal 0.0-0.3 [facility] ([place]) Comment on above: Performed By: #### A DIFF, TROPHS, GFR, BMP, MDW, CBC, PBNP, ANEU #### [address] [address] Basophils/100 WBC (Bld) 1.0 % Normal 0.0-2.5 [facility] ([place]) Comment on above: Performed By: #### A DIFF, TROPHS, GFR, BMP, MDW, CBC, PBNP, ANEU #### [address] [address] Eosinophil, Absolute 0.1 10 3/mcL Normal 0.0-0.7 [facility] ([place]) Comment on above: Performed By: #### A DIFF, TROPHS, GFR, BMP, MDW, CBC, PBNP, ANEU #### [address] [address] Eosinophils/100 WBC (Bld) 1.1 % Normal 0.0-6.0 [facility] ([place]) Comment on above: Performed By: #### A DIFF, TROPHS, GFR, BMP, MDW, CBC, PBNP, ANEU #### [address] [address] Lymphocyte, Absolute 3.0 10 3/mcL Normal 0.9-4.3 [facility] ([place]) Comment on above: Performed By: #### A DIFF, TROPHS, GFR, BMP, MDW, CBC, PBNP, ANEU #### [address] [address] Lymphocytes/100 WBC (Bld) 22.7 % Normal 20.0-40.0 [facility] ([place]) Comment on above: Performed By: #### A DIFF, TROPHS, GFR, BMP, MDW, CBC, PBNP, ANEU #### [address] [address] Monocyte, Absolute 1.4 10 3/mcL Normal 0.1-1.4 [facility] ([place]) Comment on above: Performed By: #### A DIFF, TROPHS, GFR, BMP, MDW, CBC, PBNP, ANEU #### [address] [address] Monocytes/100 WBC (Bld) 11.0 % Normal 2.0-13.0 [facility] ([place]) Comment on above: Performed By: #### A DIFF, TROPHS, GFR, BMP, MDW, CBC, PBNP, ANEU #### [address] [address] Neutrophils/100 WBC (Bld) 64.2 % Normal 50.0-75.0 [facility] ([place]) Comment on above: Performed By: #### A DIFF, TROPHS, GFR, BMP, MDW, CBC, PBNP, ANEU #### [address] [address] .GFRon 09-04-2024 GFR 46 ml/min/1.73sqm Normal [facility] ([place]) Comment on above: Result [...] GFR, BMP, MDW, CBC, PBNP, ANEU #### [address] [address] GFR Non- 38 ml/min/1.73sqm Normal [facility] ([place]) Comment on above: Result [...] GFR, BMP, MDW, CBC, PBNP, ANEU #### [address] [address] .NEUABSon 01-31-2024 Neutrophil, Absolute 8.5 10 3/mcL High 2.3-8.1 [facility] ([place]) Comment on above: Performed By: #### A DIFF, TROPHS, GFR, BMP, MDW, CBC, PBNP, ANEU #### [address] [address] APTTon 01-31-2024 aPTT Coag (Bld) [Time] 34.5 s Normal 25.0-35.0 [facility] ([place]) Comment on above: Result Comment: For Heparin anticoagulation therapy, the recommended therapeutic range is: 54-77 seconds (APTT Correlation with Anti-Xa therapeutic range of 0.3-0.7 units/ml). PLEASE REFERENCE THE PHARMACY PROTOCOL FOR DOSING. Performed By: #### A DIFF, TROPHS, GFR, BMP, MDW, CBC, PBNP, ANEU #### [address] [address] aPTT Coag (Bld) [Time] 33.9 s Normal 25.0-35.0 [facility] ([place]) Comment on above: Result Comment: For Heparin anticoagulation therapy, the recommended therapeutic range is: 54-77 seconds (APTT Correlation with Anti-Xa therapeutic range of 0.3-0.7 units/ml). PLEASE REFERENCE THE PHARMACY PROTOCOL FOR DOSING. Performed By: #### A DIFF, TROPHS, GFR, BMP, MDW, CBC, PBNP, ANEU #### [address] [address] aPTT Coag (Bld) [Time] 26.2 s Normal 25.0-35.0 [facility] ([place]) Comment on above: Result Comment: For Heparin anticoagulation therapy, the recommended therapeutic range is: 54-77 seconds (APTT Correlation with Anti-Xa therapeutic range of 0.3-0.7 units/ml). PLEASE REFERENCE THE PHARMACY PROTOCOL FOR DOSING. Performed By: #### A DIFF, TROPHS, GFR, BMP, MDW, CBC, PBNP, ANEU #### [address] [address] CAIONon 01-31-2024 Calcium Ionized 1.07 mmol/L Low 1.12-1.32 [facility] ([place]) Comment on above: Performed By: #### T ROPHS, CMP, CAION, LAC, CBC, ADIFF, GFR, PHOS, MG, ANEU #### [place] [id number] [address] [place] [address] CBCon 01-31-2024 Erythrocyte distribution width (RBC) [Ratio] 16.3 % High 11.5-15.5 [facility] ([place]) Comment on above: Performed By: #### A DIFF, TROPHS, GFR, BMP, MDW, CBC, PBNP, ANEU #### [address] [address] Hematocrit (Bld) [Volume fraction] 42.8 % Normal 40.0-52.0 [facility] ([place]) Comment on above: Performed By: #### A DIFF, TROPHS, GFR, BMP, MDW, CBC, PBNP, ANEU #### [address] [address] Hgb 14.0 G/dL Normal 13.0-17.5 [facility] ([place]) Comment on above: Performed By: #### A DIFF, TROPHS, GFR, BMP, MDW, CBC, PBNP, ANEU #### [address] [address] MCH (RBC) [Entitic mass] 25.9 pg Low 27.0-33.0 [facility] ([place]) Comment on above: Performed By: #### A DIFF, TROPHS, GFR, BMP, MDW, CBC, PBNP, ANEU #### [address] [address] MCHC 32.6 G/dL Normal 32.0-36.0 [facility] ([place]) Comment on above: Performed By: #### A DIFF, TROPHS, GFR, BMP, MDW, CBC, PBNP, ANEU #### [address] [address] MCV (RBC) [Entitic vol] 79.5 fL Low 81.0-100.0 [facility] ([place]) Comment on above: Performed By: #### A DIFF, TROPHS, GFR, BMP, MDW, CBC, PBNP, ANEU #### [address] [place] [address] Platelet 270 10 3/mcL Normal 150-450 [facility] ([place]) Comment on above: Performed By: #### A DIFF, TROPHS, GFR, BMP, MDW, CBC, PBNP, ANEU #### [address] [address] Platelet mean volume (Bld) [Entitic vol] 7.0 fL Normal 6.4-10.5 [facility] ([place]) Comment on above: Performed By: #### A DIFF, TROPHS, GFR, BMP, MDW, CBC, PBNP, ANEU #### [address] [address] RBC 5.39 10 6/mcL Normal 4.50-6.00 [facility] ([place]) Comment on above: Performed By: #### A DIFF, TROPHS, GFR, BMP, MDW, CBC, PBNP, ANEU #### [address] [address] WBC 13.2 10 3/mcL High 4.5-10.8 [facility] ([place]) Comment on above: Performed By: #### A DIFF, TROPHS, GFR, BMP, MDW, CBC, PBNP, ANEU #### [address] [address] CMPon 01-31-2024 Albumin Level 3.0 G/dL Low 3.2-4.8 [facility] ([place]) Comment on above: Performed By: #### A DIFF, TROPHS, GFR, BMP, MDW, CBC, PBNP, ANEU #### [address] [address] Albumin/Globulin [Mass ratio] 0.8 {ratio} Low 0.9-1.6 [facility] ([place]) Comment on above: Performed By: #### A DIFF, TROPHS, GFR, BMP, MDW, CBC, PBNP, ANEU #### [address] [address] ALP [Catalytic activity/Vol] 77 U/L Normal 38-126 [facility] ([place]) Comment on above: Performed By: #### A DIFF, TROPHS, GFR, BMP, MDW, CBC, PBNP, ANEU #### [address] [address] ALT/SGPT <8 Low 12-55 [facility] ([place]) Comment on above: Performed By: #### A DIFF, TROPHS, GFR, BMP, MDW, CBC, PBNP, ANEU #### [place] [id number] AST [Catalytic activity/Vol] 12 U/L Normal 8-34 [facility] ([place]) Comment on above: Performed By: #### A DIFF, TROPHS, GFR, BMP, MDW, CBC, PBNP, ANEU #### [address] [address] Bili Total 0.40 mg/dL Normal 0.20-1.20 [facility] ([place]) Comment on above: Result Comment: Use of this assay is not recommended for patients undergoing treatment with eltrombopag due to the potential for falsely elevated results. Performed By: #### A DIFF, TROPHS, GFR, BMP, MDW, CBC, PBNP, ANEU #### [address] [address] BUN/Creatinine Ratio 11.2 ratio Normal 10.0-22.0 [facility] ([place]) Comment on above: Performed By: #### A DIFF, TROPHS, GFR, BMP, MDW, CBC, PBNP, ANEU #### [address] [address] Calcium [Mass/Vol] 8.8 mg/dL Normal 8.7-10.4 [facility] ([place]) Comment on above: Performed By: #### A DIFF, TROPHS, GFR, BMP, MDW, CBC, PBNP, ANEU #### [address] [address] Chloride [Moles/Vol] 100 mmol/L Normal 98-110 [facility] ([place]) Comment on above: Performed By: #### A DIFF, TROPHS, GFR, BMP, MDW, CBC, PBNP, ANEU #### [address] [address] CO2 [Moles/Vol] 29 mmol/L Normal 22-32 [facility] ([place]) Comment on above: Performed By: #### A DIFF, TROPHS, GFR, BMP, MDW, CBC, PBNP, ANEU #### [address] [address] Creatinine [Mass/Vol] 1.87 mg/dL High 0.60-1.40 On license of [facility] ([place]) Comment on above: Result Comment: Test ing performed on [employer] analyzer using enzymatic creatinine methodology. Performed By: #### A DIFF, TROPHS, GFR, BMP, MDW, CBC, PBNP, ANEU #### [address] [address] Electrolyte Balance 8.0 mEq/L Normal 4.0-15.0 [facility] ([place]) Comment on above: Performed By: #### A DIFF, TROPHS, GFR, BMP, MDW, CBC, PBNP, ANEU #### [address] [address] Globulin 3.7 G/dL Normal 1.5-3.8 [facility] ([place]) Comment on above: Performed By: #### A DIFF, TROPHS, GFR, BMP, MDW, CBC, PBNP, ANEU #### [address] [address] Glucose [Mass/Vol] 133 mg/dL High 70-110 [facility] ([place]) Comment on above: Performed By: #### A DIFF, TROPHS, GFR, BMP, MDW, CBC, PBNP, ANEU #### [address] [address] Potassium [Moles/Vol] 3.6 mmol/L Normal 3.5-5.0 On license of [facility] ([place]) Comment on above: Performed By: #### A DIFF, TROPHS, GFR, BMP, MDW, CBC, PBNP, ANEU #### [address] [address] Sodium [Moles/Vol] 137 mmol/L Normal 136-145 [facility] ([place]) Comment on above: Performed By: #### A DIFF, TROPHS, GFR, BMP, MDW, CBC, PBNP, ANEU #### [address] [address] Total Protein 6.7 G/dL Normal 5.7-8.2 [facility] ([place]) Comment on above: Result Comment: No te - New Reference Range in effect 19 Performed By: #### A DIFF, TROPHS, GFR, BMP, MDW, CBC, PBNP, ANEU #### [address] [address] Urea nitrogen [Mass/Vol] 21.0 mg/dL Normal 8.0-22.0 [facility] ([place]) Comment on above: Performed By: #### A DIFF, TROPHS, GFR, BMP, MDW, CBC, PBNP, ANEU #### [address] [address] CVFLURVon 01-31-2024 FLU A PCR Negative Normal Negative [facility] ([place]) Comment on above: Result Comment: [place] [id number] Performed By: #### A DIFF, TROPHS, GFR, BMP, MDW, CBC, PBNP, ANEU #### [address] [address] FLU B PCR Negative Normal Negative [facility] ([place]) Comment on above: Result Comment: [place] [id number] Performed By: #### A DIFF, TROPHS, GFR, BMP, MDW, CBC, PBNP, ANEU #### [address] [address] RSV PCR Negative Normal Negative [facility] ([place]) Comment on above: Result Comment: [place] [id number] Performed By: #### A DIFF, TROPHS, GFR, BMP, MDW, CBC, PBNP, ANEU #### [address] [address] SARS-CoV-2 (COVID-19) RNA ROSE+probe Ql (Unsp spec) Negative Normal Negative [facility] ([place]) Comment on above: Result Comment: [place] s [id number] This test has been authorized by FDA [...] DIFF, TROPHS, GFR, BMP, MDW, CBC, PBNP, [facility] #### [place] [address] LABORATORYOrdered By: SYSTEM SYSTEM on 01-31-2024 aPTT Coag (Bld) [Time] 34.5 s Normal 25.0 - 35.0 seconds AH HemoHub SS Comment on above: Interpretive Data: F or Heparin anticoagulation therapy, the recommended therapeutic range is: 54-77 seconds (APTT Correlation with Anti-Xa therapeutic range of 0.3-0.7 units/ml). PLEASE REFERENCE THE PHARMACY PROTOCOL FOR DOSING. Lactate [Moles/Vol] 1.2 mmol/L Normal 0.5 - 2. 2 mmol/L AH ADM SS Comment on above: Result Comment: Spec imen hemolyzed. Results may be affected. Albumin BCP dye [Mass/Vol] 3.0 G/dL Low 3.2 - 4.8 G/dL AH ADM SS Albumin/Globulin [Mass ratio] 0.8 {ratio} Low 0.9 - 1.6 ratio AH ADM SS ALP [Catalytic activity/Vol] 77 U/L Normal 38 - 126 U/L ADM SS ALT No additional P-5'-P [Catalytic activity/Vol] U/L 1 Low 12 - 55 U/L AH ADM SS AST [Catalytic activity/Vol] 12 U/L Normal 8 - 34 U/L AH ADM SS Basophils (Bld) [#/Vol] 0.1 [...] above: Interpretive Data: T esting performed on [employer] analyzer using enzymatic creatinine methodology. Electrolyte Balance [...] 52.0 % Workflow SS Hemoglobin (Bld) [Mass/Vol] 14.0 G/dL Normal 13.0 - 17.5 G/dL Workflow SS Lymphocytes (Bld) [#/Vol] 3.0 103/mcL Normal 0.9 - 4.3 10^3/mcL Workflow SS Lymphocytes/100 WBC (Bld) 22.7 % Normal 20.0 - 40.0 % Workflow SS Magnesium [Mass/Vol] 1.5 mg/dL Low 1.6 - 2 .4 mg/dL ADM SS MCH (RBC) [Entitic mass] 25.9 pg Low 27.0 - 33.0 pg Workflow SS MCHC 32.6 G/dL Normal 32.0 - 36.0 G/dL Workflow SS MCV (RBC) [Entitic vol] 79.5 fL Low 81.0 - 100.0 fL Workflow SS Monocytes (Bld) [#/Vol] 1.4 103/mcL Normal 0.1 - 1.4 10^3/mcL Workflow SS Monocytes/100 WBC (Bld) 11.0 % Normal 2.0 - 13.0 % Workflow SS Neutrophils (Bld) [#/Vol] 8.5 103/mcL High 2.3 - 8.1 10^3/mcL Workflow SS Neutrophils/100 WBC (Bld) 64.2 % Normal 50.0 - 75.0 % Workflow SS Phosphate [Mass/Vol] 3.1 mg/dL Normal 2.4 - 5 .1 mg/dL ADM Comment on above: Interpretive Data: * [...] s High 9.0 - 1 4.4 seconds HemMNub Comment on above: Interpretive Data: E ffective 12/11/07, Protime results may be affected by some antibiotics (i.e. Ciprofloxacin, Azithromycin, Bactrim) which may potentiate the action of oral anticoagulants, with further increases in Protime/INR. PT International Ratio 1.3 ratio Invalid Interpretation Code HemoHub Comment on above: Interpretive Data: Baljinder linn [employer] (CHEST, 1992, 102:[id number]) [...] 4 ng/L Normal 0 - 54 ng/L AH ADM SS Comment on above: Interpretive Data: High Sensitive Troponin I Reference Ranges: Female: 0-34 ng/L Male: 0-54 ng/L Testing performed on [employer] analyzer using direct chemiluminescent technology. Urea nitrogen [Mass/Vol] 21.0 mg/dL Normal 8.0 - 22.0 mg/dL ADM SS Urea nitrogen/Creatinine [Mass ratio] 11.2 ratio Normal 10.0 - 22.0 ratio ADM SS WBC (Bld) [#/Vol] 13.2 103/mcL High 4.5 - 10.8 10^3/mcL Workflow SS LABORATORYOrdered By: Yoanna Coleman on 01-31-2024 Blood Glucose Testing Reason Routine (01/31/24 7:30 AM) [facility] Glucose [Mass/Vol] 146 mg/dL High 70 - 110 mg/dL [facility] LABORATORYOrdered By: Jacqueline Ospina on 01-31-2024 FLUAV RNA ROSE+probe Ql (Resp) Negative 15 (01/31/24 4:30 AM) Normal Negative [facility]Sero SS Comment on above: Result Comment: Note s FLUBV RNA ROSE+probe Ql (Resp) Negative 16 (01/31/24 4:30 AM) Normal Negative AH Auto Viro/Sero SS Comment on above: Result Comment: Note s RSV PCR Negative 17 (01/31/24 4:30 AM) Normal Negative AH Auto [employer]/Sero SS Comment on above: Result Comment: [place] [id number] SARS-CoV-2 (COVID-19) RNA ROSE+probe Ql (Resp) Negative 13, 14 (01/31/24 4:30 AM) Normal Negative AH Auto [employer]Sero SS Comment on above: Result Comment: [place] [id number] Interpretive Data: T his test has been [...] 1.07 mmol/L Low 1.12 - 1.32 mmol/L [facility] Comm SS LABORATORYOrdered By: Roshan Galarza on 01-31-2024 Blood Glucose Testing Reason Routine (01/31/24 2:48 AM) [facility] Glucose [Mass/Vol] 153 mg/dL High 70 - 110 mg/dL [facility] LACon 01-31-2024 Lactic Acid Lvl 1.2 mmol/L Normal 0.5-2.2 [facility] ([place]) Comment on above: Result Comment: Spec imen hemolyzed. Results may be affected. Performed By: #### A DIFF, TROPHS, GFR, BMP, MDW, CBC, PBNP, ANEU #### [address] [address] MGon 01-31-2024 Magnesium [Mass/Vol] 1.5 mg/dL Low 1.6-2.4 [facility] ([place]) Comment on above: Performed By: #### A DIFF, TROPHS, GFR, BMP, MDW, CBC, PBNP, ANEU #### [address] [address] No Panel Informationon 01-30 Microscopic examination of blood, culture Culture has been received in lab and is no growth to date. Routine cultures are held for 5 days. [facility] PHOSon 01-31-2024 Phosphate [Mass/Vol] 3.1 mg/dL Normal 2.4-5.1 [facility] ([place]) Comment on above: Result Comment: No te - New Reference Range in effect 19 Performed By: #### A DIFF, TROPHS, GFR, BMP, MDW, CBC, PBNP, ANEU #### [address] [address] PROon 01-31-2024 INR Coag (PPP) [Relative time] 1.3 {INR} Normal [facility] ([place]) Comment on above: Result Comment: [employer] (CHEST, 1992, [id number]) recommended therapeutic range for oral anticoagulant therapy is: LOW RISK: Prophylaxis of venous thrombosis INR: 2.0-3.0 Treatment of pulmonary embolism 2.0-3.0 Prevention of systemic embolism 2.0-3.0 HIGH RISK: Mechanical prosthetic valves 2.5-3.5 Performed By: #### A DIFF, TROPHS, GFR, BMP, MDW, CBC, PBNP, ANEU #### [address] [address] PT Coag (PPP) [Time] 14.7 s High 9.0-14.4 [facility] ([place]) Comment on above: Result Comment: Effe ctive 12/11/07, Protime results may be affected by some antibiotics (i.e. Ciprofloxacin, Azithromycin, Bactrim) which may potentiate the action of oral anticoagulants, with further increases in Protime/INR. Performed By: #### A DIFF, TROPHS, GFR, BMP, MDW, CBC, PBNP, ANEU #### [address] [address] TROPHSon 01-31-2024 High Sensitivity Troponin I 4 ng/L Normal 0-54 [facility] ([place]) Comment on above: Result Comment: High Sensitive Troponin I Reference Ranges: Female: 0-34 ng/L Male: 0-54 ng/L Testing performed on [employer] analyzer using direct chemiluminescent technology. Performed By: #### A DIFF, TROPHS, GFR, BMP, MDW, CBC, PBNP, ANEU #### [address] [address] .Auto Diffon 01-30-2024 Basophil, Absolute 0.2 10 3/mcL Normal 0.0-0.2 [facility] ([place]) Comment on above: Performed By: #### A DIFF, TROPHS, GFR, BMP, MDW, CBC, PBNP, ANEU #### [address] [address] Basophils/100 WBC (Bld) 1.1 % Normal 0.0-2.5 [facility] ([place]) Comment on above: Performed By: #### A DIFF, TROPHS, GFR, BMP, MDW, CBC, PBNP, ANEU #### [address] [address] Eosinophil, Absolute 0.1 10 3/mcL Normal 0.0-0.4 [facility] ([place]) Comment on above: Performed By: #### A DIFF, TROPHS, GFR, BMP, MDW, CBC, PBNP, ANEU #### [address] [address] Eosinophils/100 WBC (Bld) 0.7 % Normal 0.0-7.0 [facility] ([place]) Comment on above: Performed By: #### A DIFF, TROPHS, GFR, BMP, MDW, CBC, PBNP, ANEU #### [address] [address] Lymphocyte, Absolute 2.8 10 3/mcL Normal 0.8-3.9 [facility] ([place]) Comment on above: Performed By: #### A DIFF, TROPHS, GFR, BMP, MDW, CBC, PBNP, ANEU #### [address] [address] Lymphocytes/100 WBC (Bld) 20.2 % Normal 10.0-50.0 [facility] ([place]) Comment on above: Performed By: #### A DIFF, TROPHS, GFR, BMP, MDW, CBC, PBNP, ANEU #### [address] [address] Monocyte, Absolute 1.7 10 3/mcL High 0.2-1.0 [facility] ([place]) Comment on above: Performed By: #### A DIFF, TROPHS, GFR, BMP, MDW, CBC, PBNP, ANEU #### [address] [address] Monocytes/100 WBC (Bld) 12.2 % Normal 1.7-13.0 Person [facility] ([place]) Comment on above: Performed By: #### A DIFF, TROPHS, GFR, BMP, MDW, CBC, PBNP, ANEU #### [address] [address] Neutrophils/100 WBC (Bld) 65.8 % Normal 37.0-80.0 [facility] ([place]) Comment on above: Performed By: #### A DIFF, TROPHS, GFR, BMP, MDW, CBC, PBNP, ANEU #### [address] [address] .GFRon 01-30-2024 GFR 38 ml/min/1.73sqm Normal [facility] ([place]) Comment on above: Result [...] GFR, BMP, MDW, CBC, PBNP, ANEU #### [address] [address] GFR Non- 31 ml/min/1.73sqm Normal [facility] ([place]) Comment on above: Result [...] GFR, BMP, MDW, CBC, PBNP, ANEU #### [place] [address] .MDWon 01-30-2024 Monocyte Distribution Width 21.35 High 0.00-20.00 [facility] ([place]) Comment on above: Result Comment: For adults in ED, MDW>20.0 may be associated with a higher risk of sepsis during the first 12hrs of hospital admission Performed By: #### A DIFF, TROPHS, GFR, BMP, MDW, CBC, PBNP, ANEU #### [address] [address] .NEUABSon 01-30-2024 Neutrophil, Absolute 9.2 10 3/mcL High 2.9-6.2 [facility] ([place]) Comment on above: Performed By: #### A DIFF, TROPHS, GFR, BMP, MDW, CBC, PBNP, ANEU #### [place] [address] .Urinalysis Microscopic (AO) on 01-30-2024 UA RBC None Seen Normal None Seen [facility] ([place]) Comment on above: Performed By: #### A DIFF, TROPHS, GFR, BMP, MDW, CBC, PBNP, ANEU #### [address] [address] UA Squam Epithelial None Seen Normal None Seen [facility] ([place]) Comment on above: Performed By: #### A DIFF, TROPHS, GFR, BMP, MDW, CBC, PBNP, ANEU #### [address] [address] UA WBC 0-5 Abnormal None Seen [facility] ([place]) Comment on above: Performed By: #### A DIFF, TROPHS, GFR, BMP, MDW, CBC, PBNP, ANEU #### [address] [address] BGon 01-30-2024 Base excess Calc (Bld) [Moles/Vol] 4.3 mmol/L Normal [facility] ([place]) Comment on above: Performed By: #### A DIFF, TROPHS, GFR, BMP, MDW, CBC, PBNP, ANEU #### [address] [address] CO2 [Moles/Vol] 29.8 mmol/L Normal 22.0-30.0 [facility] ([place]) Comment on above: Performed By: #### A DIFF, TROPHS, GFR, BMP, MDW, CBC, PBNP, ANEU #### [address] [address] HCO3 (Bld) [Moles/Vol] 28.5 mmol/L Normal 21.0-29.0 [facility] ([place]) Comment on above: Performed By: #### A DIFF, TROPHS, GFR, BMP, MDW, CBC, PBNP, ANEU #### [address] [address] Oxygen (Bld) [Partial pressure] 51.0 mm[Hg] Low 74.0-108.0 [facility] ([place]) Comment on above: Performed By: #### A DIFF, TROPHS, GFR, BMP, MDW, CBC, PBNP, ANEU #### [address] [address] Oxygen saturation in Blood 88.8 % Low 92.0-96.0 [facility] ([place]) Comment on above: Performed By: #### A DIFF, TROPHS, GFR, BMP, MDW, CBC, PBNP, ANEU #### [address] [address] pCO2 41.0 mmHg Normal 32.0-46.0 [facility] ([place]) Comment on above: Performed By: #### A DIFF, TROPHS, GFR, BMP, MDW, CBC, PBNP, ANEU #### [address] [address] pH (Bld) 7.460 [pH] Normal 7.380-7.460 [facility] ([place]) Comment on above: Performed By: #### A DIFF, TROPHS, GFR, BMP, MDW, CBC, PBNP, ANEU #### [address] [address] BMPon 01-30-2024 BUN/Creatinine Ratio 8 ratio Normal 7-27 [facility] ([place]) Comment on above: Performed By: #### A DIFF, TROPHS, GFR, BMP, MDW, CBC, PBNP, ANEU #### [address] [address] Calcium [Mass/Vol] 8.8 mg/dL Normal 8.4-10.2 [facility] ([place]) Comment on above: Performed By: #### A DIFF, TROPHS, GFR, BMP, MDW, CBC, PBNP, ANEU #### [address] [address] Chloride [Moles/Vol] 97 mmol/L Low 98-107 [facility] ([place]) Comment on above: Performed By: #### A DIFF, TROPHS, GFR, BMP, MDW, CBC, PBNP, ANEU #### [address] [address] CO2 [Moles/Vol] 31 mmol/L High 22-29 [facility] ([place]) Comment on above: Performed By: #### A DIFF, TROPHS, GFR, BMP, MDW, CBC, PBNP, ANEU #### [address] [address] Creatinine [Mass/Vol] 2.22 mg/dL High 0.70-1.30 On license of [facility] ([place]) Comment on above: Result Comment: Test ing performed on [employer] Dimension EXL analyzer using a modified kinetic Ciera technique. Performed By: #### A DIFF, TROPHS, GFR, BMP, MDW, CBC, PBNP, ANEU #### [address] [address] Electrolyte Balance 6.0 mEq/L Normal 4.0-15.0 [facility] ([place]) Comment on above: Performed By: #### A DIFF, TROPHS, GFR, BMP, MDW, CBC, PBNP, ANEU #### [address] [address] Glucose [Mass/Vol] 112 mg/dL High 70-105 [facility] ([place]) Comment on above: Performed By: #### A DIFF, TROPHS, GFR, BMP, MDW, CBC, PBNP, ANEU #### [address] [address] Potassium [Moles/Vol] 3.7 mmol/L Normal 3.5-5.1 On license of [facility] ([place]) Comment on above: Performed By: #### A DIFF, TROPHS, GFR, BMP, MDW, CBC, PBNP, ANEU #### [address] [address] Sodium [Moles/Vol] 134 mmol/L Low 136-145 [facility] ([place]) Comment on above: Performed By: #### A DIFF, TROPHS, GFR, BMP, MDW, CBC, PBNP, ANEU #### [address] [address] Urea nitrogen [Mass/Vol] 17 mg/dL Normal 7-18 [facility] ([place]) Comment on above: Performed By: #### A DIFF, TROPHS, GFR, BMP, MDW, CBC, PBNP, ANEU #### [address] [address] CBCon 01-30-2024 Erythrocyte distribution width (RBC) [Ratio] 16.5 % High 11.5-14.5 [facility] ([place]) Comment on above: Performed By: #### A DIFF, TROPHS, GFR, BMP, MDW, CBC, PBNP, ANEU #### [address] [address] Hematocrit (Bld) [Volume fraction] 45.3 % Normal 42.0-52.0 [facility] ([place]) Comment on above: Performed By: #### A DIFF, TROPHS, GFR, BMP, MDW, CBC, PBNP, ANEU #### [place] [id number] Hgb 14.9 G/dL Normal 14.0-18.0 [facility] ([place]) Comment on above: Performed By: #### A DIFF, TROPHS, GFR, BMP, MDW, CBC, PBNP, ANEU #### [address] [address] MCH (RBC) [Entitic mass] 26.6 pg Low 27.0-31.2 [facility] ([place]) Comment on above: Performed By: #### A DIFF, TROPHS, GFR, BMP, MDW, CBC, PBNP, ANEU #### [address] [address] MCHC 33.0 G/dL Normal 31.8-35.4 [facility] ([place]) Comment on above: Performed By: #### A DIFF, TROPHS, GFR, BMP, MDW, CBC, PBNP, ANEU #### [address] [address] MCV (RBC) [Entitic vol] 80.7 fL Normal 80.0-94.0 [facility] ([place]) Comment on above: Performed By: #### A DIFF, TROPHS, GFR, BMP, MDW, CBC, PBNP, ANEU #### [address] [address] Platelet 263 10 3/mcL Normal 130-400 [facility] ([place]) Comment on above: Performed By: #### A DIFF, TROPHS, GFR, BMP, MDW, CBC, PBNP, ANEU #### [address] [address] Platelet mean volume (Bld) [Entitic vol] 6.8 fL Low 7.4-10.4 [facility] ([place]) Comment on above: Performed By: #### A DIFF, TROPHS, GFR, BMP, MDW, CBC, PBNP, ANEU #### [place] [address] RBC 5.61 10 6/mcL Normal 4.04-6.13 [facility] ([place]) Comment on above: Performed By: #### A DIFF, TROPHS, GFR, BMP, MDW, CBC, PBNP, ANEU #### [address] [address] WBC 14.0 10 3/mcL High 4.6-10.8 [facility] ([place]) Comment on above: Performed By: #### A DIFF, TROPHS, GFR, BMP, MDW, CBC, PBNP, ANEU #### [address] [address] [address] HEAD OR BRAIN W/O CONTRAS Ton [...] 01/30/2024 10:16:46 PM Ordering Provider: SAMY Kate [facility]) LABORATORYOrdered By: Jil Morales on 01-30-2024 Appearance [...] ng/L Male: 0-76 ng/L Testing performed on [employer] using a homogeneous sandwich chemiluminescent immunoassay based on [email or web address] technology. Lactate [Moles/Vol] 1.0 mmol/L Normal 0.4 [...] above: Interpretive Data: T esting performed on [employer] EXL analyzer using a modified kinetic Ciera [...] ng/L Male: 0-76 ng/L Testing performed on [employer] using a homogeneous sandwich chemiluminescent immunoassay based on [email or web address] technology. Urea nitrogen [Mass/Vol] 17 mg/dL Normal [...] Lactic Acid Lvl 1.0 mmol/L Normal 0.4-2.0 [facility] ([place]) Comment on above: Performed By: #### L AC #### [address] [address] No Panel Informationon 01-29 Microscopic examination of blood, culture Culture has been received in lab and is no growth to date. Routine cultures are held for 5 days. [facility] PBNPon 01-30-2024 Natriuretic peptide B (Bld) [Mass/Vol] 1822 pg/mL High 0-125 [facility] ([place]) Comment on above: Result Comment: NT-p roBNP results of less than 300 pg/mL effectively rules out acute congestive heart failure with 99% negative predictive value. Performed By: #### A DIFF, TROPHS, GFR, BMP, MDW, CBC, PBNP, ANEU #### [place] [address] TROPHSon 01-30-2024 High Sensitivity Troponin I 7 ng/L Normal 0-76 [facility] ([place]) Comment on above: Result Comment: High Sensitive Troponin I Reference Ranges: Female: 0-51 ng/L Male: 0-76 ng/L Testing performed on Dimension EXL using a homogeneous sandwich chemiluminescent immunoassay based on [email or web address] technology. Performed By: #### A DIFF, TROPHS, GFR, BMP, MDW, CBC, PBNP, ANEU #### [address] [address] High Sensitivity Troponin I 8 ng/L Normal 0-76 [facility] ([place]) Comment on above: Result Comment: High Sensitive Troponin I Reference Ranges: Female: 0-51 ng/L Male: 0-76 ng/L Testing performed on Dimension EXL using a homogeneous sandwich chemiluminescent immunoassay based on [email or web address] technology. Performed By: #### A DIFF, TROPHS, GFR, BMP, MDW, CBC, PBNP, ANEU #### [address] [address] UAon 01-30-2024 Color (U) Yellow Normal [facility] ([place]) Comment on above: Performed By: #### A DIFF, TROPHS, GFR, BMP, MDW, CBC, PBNP, ANEU #### [address] [address] Glucose (U) [Mass/Vol] Negative Normal Negative [facility] ([place]) Comment on above: Performed By: #### A DIFF, TROPHS, GFR, BMP, MDW, CBC, PBNP, ANEU #### [address] [address] Ketones Ql (U) Negative Normal Negative [facility] ([place]) Comment on above: Performed By: #### A DIFF, TROPHS, GFR, BMP, MDW, CBC, PBNP, ANEU #### [address] [address] UA Appear Clear Normal Clear [facility] ([place]) Comment on above: Performed By: #### A DIFF, TROPHS, GFR, BMP, MDW, CBC, PBNP, ANEU #### [address] [address] UA Bili Small Abnormal Negative [facility] ([place]) Comment on above: Performed By: #### A DIFF, TROPHS, GFR, BMP, MDW, CBC, PBNP, ANEU #### [address] [address] UA Blood Trace Abnormal Negative [facility] ([place]) Comment on above: Performed By: #### A DIFF, TROPHS, GFR, BMP, MDW, CBC, PBNP, ANEU #### [address] [address] UA Leuk Est Trace Abnormal Negative [facility] ([place]) Comment on above: Performed By: #### A DIFF, TROPHS, GFR, BMP, MDW, CBC, PBNP, ANEU #### [address] [address] UA Nitrite Negative Normal Negative [facility] ([place]) Comment on above: Performed By: #### A DIFF, TROPHS, GFR, BMP, MDW, CBC, PBNP, ANEU #### [address] [address] UA pH 6.0 Normal 5.0 - 8.0 [facility] ([place]) Comment on above: Performed By: #### A DIFF, TROPHS, GFR, BMP, MDW, CBC, PBNP, ANEU #### [address] [address] UA Protein 100 mg/dL Abnormal Negative [facility] ([place]) Comment on above: Performed By: #### A DIFF, TROPHS, GFR, BMP, MDW, CBC, PBNP, ANEU #### [address] [address] UA Spec Grav 1.025 Normal 1.015-1.025 [facility] ([place]) Comment on above: Performed By: #### A DIFF, TROPHS, GFR, BMP, MDW, CBC, PBNP, ANEU #### [address] [address] UA Specimen Type Void Normal [facility] ([place]) Comment on above: Performed By: #### A DIFF, TROPHS, GFR, BMP, MDW, CBC, PBNP, ANEU #### [place] [address] [place], [place] [address] UA Urobilinogen 1.0 E.U./dL Normal 0.2-1.0 [facility] ([place]) Comment on above: Performed By: #### A DIFF, TROPHS, GFR, BMP, MDW, CBC, PBNP, ANEU #### [place] [address] [place], [place] [address] XR CHEST 1 VIEWon 01-30-2024 XR CHEST [...] 9:28:12 PM Ordering Provider: SAMY JONES Normal [facility] ([place]) .GFRon 08-08-2023 GFR Non- 105 ml/min/1.73sqm Normal [facility] ([place]) Comment on above: Result [...] GFR, BMP, MDW, CBC, PBNP, ANEU #### [address] [address] GFR 127 ml/min/1.73sqm Normal [facility] ([place]) Comment on above: Result [...] GFR, BMP, MDW, CBC, PBNP, ANEU #### [address] [address] A1Con 08-08-2023 HbA1c (Bld) [Mass fraction] 6.7 % High 4.3-6.4 [facility] ([place]) Comment on above: Performed By: #### A DIFF, TROPHS, GFR, BMP, MDW, CBC, PBNP, ANEU #### [address] [address] CMPon 08-08-2023 Albumin Level 3.4 G/dL Low 3.5-5.0 [facility] ([place]) Comment on above: Performed By: #### A DIFF, TROPHS, GFR, BMP, MDW, CBC, PBNP, ANEU #### [address] [address] Albumin/Globulin [Mass ratio] 0.9 {ratio} Low 1.1-2.5 [facility] ([place]) Comment on above: Performed By: #### A DIFF, TROPHS, GFR, BMP, MDW, CBC, PBNP, ANEU #### [address] [address] ALP [Catalytic activity/Vol] 87 U/L Normal 40-135 [facility] ([place]) Comment on above: Performed By: #### A DIFF, TROPHS, GFR, BMP, MDW, CBC, PBNP, ANEU #### [address] [address] ALT [Catalytic activity/Vol] 19 U/L Normal 16-63 [facility] ([place]) Comment on above: Performed By: #### A DIFF, TROPHS, GFR, BMP, MDW, CBC, PBNP, ANEU #### [address] [address] AST [Catalytic activity/Vol] 15 U/L Normal 10-40 [facility] ([place]) Comment on above: Performed By: #### A DIFF, TROPHS, GFR, BMP, MDW, CBC, PBNP, ANEU #### [address] [address] Bili Total 0.5 mg/dL Normal 0.2-1.0 [facility] ([place]) Comment on above: Result Comment: Use of this assay is not recommended for patients undergoing treatment with eltrombopag due to the potential for falsely elevated results. Performed By: #### A DIFF, TROPHS, GFR, BMP, MDW, CBC, PBNP, ANEU #### [address] [address] BUN/Creatinine Ratio 14 ratio Normal 7-27 [facility] ([place]) Comment on above: Performed By: #### A DIFF, TROPHS, GFR, BMP, MDW, CBC, PBNP, ANEU #### [address] [address] Calcium [Mass/Vol] 8.7 mg/dL Normal 8.4-10.2 [facility] ([place]) Comment on above: Performed By: #### A DIFF, TROPHS, GFR, BMP, MDW, CBC, PBNP, ANEU #### [address] [address] Chloride [Moles/Vol] 100 mmol/L Normal 98-107 [facility] ([place]) Comment on above: Performed By: #### A DIFF, TROPHS, GFR, BMP, MDW, CBC, PBNP, ANEU #### [address] [address] CO2 [Moles/Vol] 34 mmol/L High 22-29 [facility] ([place]) Comment on above: Performed By: #### A DIFF, TROPHS, GFR, BMP, MDW, CBC, PBNP, ANEU #### [address] [address] Creatinine [Mass/Vol] 0.78 mg/dL Normal 0.70-1.30 On license of [facility] ([place]) Comment on above: Performed By: #### A DIFF, TROPHS, GFR, BMP, MDW, CBC, PBNP, ANEU #### [address] [address] Electrolyte Balance 6.0 mEq/L Normal 4.0-15.0 [facility] ([place]) Comment on above: Performed By: #### A DIFF, TROPHS, GFR, BMP, MDW, CBC, PBNP, ANEU #### [address] [address] Globulin 3.8 G/dL Normal [facility] ([place]) Comment on above: Performed By: #### A DIFF, TROPHS, GFR, BMP, MDW, CBC, PBNP, ANEU #### [address] [address] Glucose [Mass/Vol] 121 mg/dL High 70-105 [facility] ([place]) Comment on above: Performed By: #### A DIFF, TROPHS, GFR, BMP, MDW, CBC, PBNP, ANEU #### [address] [address] Potassium [Moles/Vol] 4.2 mmol/L Normal 3.5-5.1 On license of [facility] ([place]) Comment on above: Performed By: #### A DIFF, TROPHS, GFR, BMP, MDW, CBC, PBNP, ANEU #### [place] [address] Sodium [Moles/Vol] 140 mmol/L Normal 136-145 [facility] ([place]) Comment on above: Performed By: #### A DIFF, TROPHS, GFR, BMP, MDW, CBC, PBNP, ANEU #### [place] [address] Total Protein 7.2 G/dL Normal 6.4-8.2 [facility]) Comment on above: Performed By: #### A DIFF, TROPHS, GFR, BMP, MDW, CBC, PBNP, ANEU #### [place] [address] Urea nitrogen [Mass/Vol] 11 mg/dL Normal 7-18 [facility] ([place]) Comment on above: Performed By: #### A DIFF, TROPHS, GFR, BMP, MDW, CBC, PBNP, ANEU #### [place] [address] LABORATORYOrdered By: Jr Fontaine on 08-08-2023 Albumin DL <= 20 mg/L (U) [Mass/Vol] 378 mcg/dL Invalid Interpretation Code AO ADM SS Albumin/Creatinine DL <= 20 mg/L (U) [Mass ratio] 12 mcg/mg Normal 0 - 30 mcg/mg AO ADM SS Creatinine (U) [Mass/Vol] 30.5 mg/dL Low 39.0 - 259.0 mg/dL AO ADM SS LIPIDon 08-08-2023 Cholesterol [Mass/Vol] 156 mg/dL Normal 0-200 [facility] ([place]) Comment on above: Result Comment: Chol esterol Reference Interval: Less than 200 Desirable 200-239 Borderline high risk 240 and above High risk Performed By: #### A DIFF, TROPHS, GFR, BMP, MDW, CBC, PBNP, ANEU #### [place] [address] [place], [place] [address] Cholesterol in HDL [Mass/Vol] 28 mg/dL Low 40-60 [facility] ([place]) Comment on above: Performed By: #### A DIFF, TROPHS, GFR, BMP, MDW, CBC, PBNP, ANEU #### [address] [address] Cholesterol in LDL [Mass/Vol] 93 mg/dL Normal 0-130 [facility] ([place]) Comment on above: Performed By: #### A DIFF, TROPHS, GFR, BMP, MDW, CBC, PBNP, ANEU #### [address] [address] Triglyceride [Mass/Vol] 175 mg/dL High 0-150 [facility] ([place]) Comment on above: Result Comment: Trig lyceride Reference Interval: Less than 150 Normal 150-199 Borderline high risk 200-499 High risk 500 or higher Very high risk Performed By: #### A DIFF, TROPHS, GFR, BMP, MDW, CBC, PBNP, ANEU #### [address] [address] MALBRon 08-08-2023 U Creatinine 30.5 mg/dL Low 39.0-259.0 [facility] ([place]) Comment on above: Performed By: #### A DIFF, TROPHS, GFR, BMP, MDW, CBC, PBNP, ANEU #### [address] [address] U Microalb 378 mcg/dL Normal [facility] ([place]) Comment on above: Performed By: #### A DIFF, TROPHS, GFR, BMP, MDW, CBC, PBNP, ANEU #### [address] [address] U Ratio Alb/Cre 12 mcg/mg Normal 0-30 [facility] ([place]) Comment on above: Performed By: #### A DIFF, TROPHS, GFR, BMP, MDW, CBC, PBNP, ANEU #### [address] [address] CVFLURVon 06-13-2023 FLU A PCR Negative Normal Negative [facility] ([place]) Comment on above: Performed By: #### A DIFF, TROPHS, GFR, BMP, MDW, CBC, PBNP, ANEU #### [place] [address] FLU B PCR Negative Normal Negative [facility] ([place]) Comment on above: Performed By: #### A DIFF, TROPHS, GFR, BMP, MDW, CBC, PBNP, ANEU #### [place] [address] RSV PCR Negative Normal Negative [facility] ([place]) Comment on above: Performed By: #### A DIFF, TROPHS, GFR, BMP, MDW, CBC, PBNP, ANEU #### [place] [address] SARS-CoV-2 (COVID-19) RNA ROSE+probe Ql (Unsp spec) Negative Normal Negative [facility] ([place]) Comment on above: Result [...] GFR, BMP, MDW, CBC, PBNP, ANEU #### [place] [address] LABORATORYOrdered By: Giovana Fischer on 06-13-2023 FLUAV [...] 06/13/2023 12:39:50 AM Ordering Provider: DEMI [facility] ([place]) .Auto Diffon 06-09-2023 Basophil, Absolute 0.1 10 3/mcL Normal 0.0-0.3 [facility] ([place]) Comment on above: Performed By: #### A DIFF, TROPHS, GFR, BMP, MDW, CBC, PBNP, ANEU #### [address] [address] Basophils/100 WBC (Bld) 0.8 % Normal 0.0-2.5 [facility] ([place]) Comment on above: Performed By: #### A DIFF, TROPHS, GFR, BMP, MDW, CBC, PBNP, ANEU #### [address] [address] Eosinophil, Absolute 0.1 10 3/mcL Normal 0.0-0.7 [facility] ([place]) Comment on above: Performed By: #### A DIFF, TROPHS, GFR, BMP, MDW, CBC, PBNP, ANEU #### [address] [address] Eosinophils/100 WBC (Bld) 2.0 % Normal 0.0-6.0 [facility] ([place]) Comment on above: Performed By: #### A DIFF, TROPHS, GFR, BMP, MDW, CBC, PBNP, ANEU #### [address] [address] Lymphocyte, Absolute 1.0 10 3/mcL Normal 0.9-4.3 [facility] ([place]) Comment on above: Performed By: #### A DIFF, TROPHS, GFR, BMP, MDW, CBC, PBNP, ANEU #### [address] [address] Lymphocytes/100 WBC (Bld) 15.5 % Low 20.0-40.0 [facility] ([place]) Comment on above: Performed By: #### A DIFF, TROPHS, GFR, BMP, MDW, CBC, PBNP, ANEU #### [address] [address] Monocyte, Absolute 0.7 10 3/mcL Normal 0.1-1.4 [facility] ([place]) Comment on above: Performed By: #### A DIFF, TROPHS, GFR, BMP, MDW, CBC, PBNP, ANEU #### [address] [address] Monocytes/100 WBC (Bld) 11.1 % Normal 2.0-13.0 [facility] ([place]) Comment on above: Performed By: #### A DIFF, TROPHS, GFR, BMP, MDW, CBC, PBNP, ANEU #### [address] [address] Neutrophils/100 WBC (Bld) 70.6 % Normal 50.0-75.0 [facility] ([place]) Comment on above: Performed By: #### A DIFF, TROPHS, GFR, BMP, MDW, CBC, PBNP, ANEU #### [address] [address] .GFRon 06-09-2023 GFR Non- >60 Normal [facility] ([place]) Comment on above: Result [...] GFR, BMP, MDW, CBC, PBNP, ANEU #### [address] [address] GFR >60 Normal [facility] ([place]) Comment on above: Result Comment: GFR [...] GFR, BMP, MDW, CBC, PBNP, ANEU #### [address] [address] .NEUABSon 06-09-2023 Neutrophil, Absolute 4.7 10 3/mcL Normal 2.3-8.1 [facility] ([place]) Comment on above: Performed By: #### A DIFF, TROPHS, GFR, BMP, MDW, CBC, PBNP, ANEU #### [address] [address] BMPon 06-09-2023 BUN/Creatinine Ratio 11.8 ratio Normal 10.0-22.0 [facility] ([place]) Comment on above: Performed By: #### A DIFF, TROPHS, GFR, BMP, MDW, CBC, PBNP, ANEU #### [address] [address] Calcium [Mass/Vol] 9.0 mg/dL Normal 8.7-10.4 [facility] ([place]) Comment on above: Performed By: #### A DIFF, TROPHS, GFR, BMP, MDW, CBC, PBNP, ANEU #### [address] [address] Chloride [Moles/Vol] 102 mmol/L Normal 98-110 [facility] ([place]) Comment on above: Performed By: #### A DIFF, TROPHS, GFR, BMP, MDW, CBC, PBNP, ANEU #### [address] [address] CO2 [Moles/Vol] 35 mmol/L High 22-32 [facility] ([place]) Comment on above: Performed By: #### A DIFF, TROPHS, GFR, BMP, MDW, CBC, PBNP, ANEU #### [address] [address] Creatinine [Mass/Vol] 0.85 mg/dL Normal 0.60-1.40 On license of [facility] ([place]) Comment on above: Performed By: #### A DIFF, TROPHS, GFR, BMP, MDW, CBC, PBNP, ANEU #### [address] [address] Electrolyte Balance 0.0 mEq/L Low 4.0-15.0 [facility] ([place]) Comment on above: Performed By: #### A DIFF, TROPHS, GFR, BMP, MDW, CBC, PBNP, ANEU #### [address] [address] Glucose [Mass/Vol] 146 mg/dL High 70-110 [facility] ([place]) Comment on above: Performed By: #### A DIFF, TROPHS, GFR, BMP, MDW, CBC, PBNP, ANEU #### [address] [address] Potassium [Moles/Vol] 4.8 mmol/L Normal 3.5-5.0 On license of [facility] ([place]) Comment on above: Performed By: #### A DIFF, TROPHS, GFR, BMP, MDW, CBC, PBNP, ANEU #### [address] [address] Sodium [Moles/Vol] 137 mmol/L Normal 136-145 [facility] ([place]) Comment on above: Performed By: #### A DIFF, TROPHS, GFR, BMP, MDW, CBC, PBNP, ANEU #### [address] [address] Urea nitrogen [Mass/Vol] 10.0 mg/dL Normal 8.0-22.0 [facility] ([place]) Comment on above: Result Comment: Spec imen hemolyzed. Results may be falsely elevated. Performed By: #### A DIFF, TROPHS, GFR, BMP, MDW, CBC, PBNP, ANEU #### [address] [address] CBCon 06-09-2023 Erythrocyte distribution width (RBC) [Ratio] 13.3 % Normal 11.5-15.5 [facility] ([place]) Comment on above: Performed By: #### A DIFF, TROPHS, GFR, BMP, MDW, CBC, PBNP, ANEU #### [address] [address] Hematocrit (Bld) [Volume fraction] 45.9 % Normal 40.0-52.0 [facility] ([place]) Comment on above: Performed By: #### A DIFF, TROPHS, GFR, BMP, MDW, CBC, PBNP, ANEU #### [address] [address] Hgb 15.6 G/dL Normal 13.0-17.5 [facility] ([place]) Comment on above: Performed By: #### A DIFF, TROPHS, GFR, BMP, MDW, CBC, PBNP, ANEU #### [address] [address] MCH (RBC) [Entitic mass] 29.0 pg Normal 27.0-33.0 [facility] ([place]) Comment on above: Performed By: #### A DIFF, TROPHS, GFR, BMP, MDW, CBC, PBNP, ANEU #### [address] [address] MCHC 33.9 G/dL Normal 32.0-36.0 [facility] ([place]) Comment on above: Performed By: #### A DIFF, TROPHS, GFR, BMP, MDW, CBC, PBNP, ANEU #### [address] [address] [place] [address] MCV (RBC) [Entitic vol] 85.5 fL Normal 81.0-100.0 [facility] ([place]) Comment on above: Performed By: #### A DIFF, TROPHS, GFR, BMP, MDW, CBC, PBNP, ANEU #### [address] [address] Platelet 174 10 3/mcL Normal 150-450 [facility] ([place]) Comment on above: Performed By: #### A DIFF, TROPHS, GFR, BMP, MDW, CBC, PBNP, ANEU #### [address] [address] Platelet mean volume (Bld) [Entitic vol] 7.5 fL Normal 6.4-10.5 [facility] ([place]) Comment on above: Performed By: #### A DIFF, TROPHS, GFR, BMP, MDW, CBC, PBNP, ANEU #### [address] [address] RBC 5.37 10 6/mcL Normal 4.50-6.00 [facility] ([place]) Comment on above: Performed By: #### A DIFF, TROPHS, GFR, BMP, MDW, CBC, PBNP, ANEU #### [address] [address] WBC 6.6 10 3/mcL Normal 4.5-10.8 [facility] ([place]) Comment on above: Performed By: #### A DIFF, TROPHS, GFR, BMP, MDW, CBC, PBNP, ANEU #### [address] [address] LABORATORYOrdered By: Adenike Swain on 06-09-2023 Blood Glucose Testing Reason Routine (06/09/23 4:18 PM) [facility] Glucose [Mass/Vol] 114 mg/dL High 70 - 110 mg/dL [facility] LABORATORYOrdered By: Cris Jang on 06-09-2023 Blood Glucose Testing Reason Routine (1/12/24 7:51 AM) [facility] Glucose [Mass/Vol] 142 mg/dL High 70 - 110 mg/dL [facility] LABORATORYOrdered By: SYSTEM SYSTEM on 06-09-2023 Basophils (Bld) [#/Vol] 0.1 103/mcL Normal 0.0 - 0.3 10^3/mcL AH Workflow SS Basophils/100 WBC (Bld) 0.8 % Normal 0.0 - 2.5 % AH Workflow SS Calcium [Mass/Vol] 9.0 mg/dL Normal 8.7 - 10. 4 mg/dL ADM SS Chloride [Moles/Vol] 102 mmol/L Normal 98 - 11 0 mEq/L ADM SS CO2 [Moles/Vol] 35 mmol/L High 22 - 32 mEq/L ADM SS Creatinine [Mass/Vol] 0.85 mg/dL Normal 0.60 - 1.40 mg/dL ADM SS Electrolyte Balance 0.0 mEq/L Low [...] 4.3 10^3/mcL Workflow SS Lymphocytes/100 WBC (Bld) 15.5 % Low 20.0 - 40.0 % AH Workflow SS Magnesium [Mass/Vol] 2.1 mg/dL Normal 1.6 - 2 .4 mg/dL ADM SS MCH (RBC) [Entitic mass] 29.0 pg Normal 27.0 - 33.0 pg AH Workflow SS MCHC 33.9 G/dL Normal 32.0 - 36.0 G/dL AH Workflow SS MCV (RBC) [Entitic vol] 85.5 fL Normal 81.0 - 100.0 fL Workflow SS Monocytes (Bld) [#/Vol] 0.7 103/mcL Normal 0.1 - 1.4 10^3/mcL AH Workflow SS Monocytes/100 WBC (Bld) 11.1 % Normal 2.0 - 13.0 % AH Workflow SS Neutrophils (Bld) [#/Vol] 4.7 103/mcL Normal 2.3 - 8.1 10^3/mcL Workflow SS Neutrophils/100 WBC (Bld) 70.6 % [...] 06-09-2023 Magnesium [Mass/Vol] 2.1 mg/dL Normal 1.6-2.4 [facility] ([place]) Comment on above: Performed By: #### A DIFF, TROPHS, GFR, BMP, MDW, CBC, PBNP, ANEU #### Larry [address] [address] .Auto Diffon 06-08-2023 Basophil, Absolute 0.1 10 3/mcL Normal 0.0-0.3 [facility] ([place]) Comment on above: Performed By: #### A DIFF, TROPHS, GFR, BMP, MDW, CBC, PBNP, ANEU #### Larry [address] [address] Basophils/100 WBC (Bld) 0.7 % Normal 0.0-2.5 [facility] ([place]) Comment on above: Performed By: #### A DIFF, TROPHS, GFR, BMP, MDW, CBC, PBNP, ANEU #### [address] [address] Eosinophil, Absolute 0.1 10 3/mcL Normal 0.0-0.7 [facility] ([place]) Comment on above: Performed By: #### A DIFF, TROPHS, GFR, BMP, MDW, CBC, PBNP, ANEU #### [address] [address] Eosinophils/100 WBC (Bld) 1.9 % Normal 0.0-6.0 [facility] ([place]) Comment on above: Performed By: #### A DIFF, TROPHS, GFR, BMP, MDW, CBC, PBNP, ANEU #### [address] [address] Lymphocyte, Absolute 1.3 10 3/mcL Normal 0.9-4.3 [facility] ([place]) Comment on above: Performed By: #### A DIFF, TROPHS, GFR, BMP, MDW, CBC, PBNP, ANEU #### [address] [address] Lymphocytes/100 WBC (Bld) 16.1 % Low 20.0-40.0 [facility] ([place]) Comment on above: Performed By: #### A DIFF, TROPHS, GFR, BMP, MDW, CBC, PBNP, ANEU #### [address] [address] Monocyte, Absolute 0.8 10 3/mcL Normal 0.1-1.4 [facility] ([place]) Comment on above: Performed By: #### A DIFF, TROPHS, GFR, BMP, MDW, CBC, PBNP, ANEU #### [address] [address] Monocytes/100 WBC (Bld) 9.9 % Normal 2.0-13.0 [facility] ([place]) Comment on above: Performed By: #### A DIFF, TROPHS, GFR, BMP, MDW, CBC, PBNP, ANEU #### [address] [address] Neutrophils/100 WBC (Bld) 71.4 % Normal 50.0-75.0 [facility] ([place]) Comment on above: Performed By: #### A DIFF, TROPHS, GFR, BMP, MDW, CBC, PBNP, ANEU #### [address] [address] .GFRon 06-08-2023 GFR >60 Normal [facility] ([place]) Comment on above: Result Comment: GFR [...] GFR, BMP, MDW, CBC, PBNP, ANEU #### [address] [address] GFR Non- >60 Normal [facility] ([place]) Comment on above: Result [...] GFR, BMP, MDW, CBC, PBNP, ANEU #### [address] [address] .NEUABSon 06-08-2023 Neutrophil, Absolute 5.7 10 3/mcL Normal 2.3-8.1 [facility] ([place]) Comment on above: Performed By: #### A DIFF, TROPHS, GFR, BMP, MDW, CBC, PBNP, ANEU #### [address] [address] BMPon 06-08-2023 BUN/Creatinine Ratio 10.7 ratio Normal 10.0-22.0 [facility] ([place]) Comment on above: Performed By: #### A DIFF, TROPHS, GFR, BMP, MDW, CBC, PBNP, ANEU #### [place] [id number] Calcium [Mass/Vol] 8.9 mg/dL Normal 8.7-10.4 [facility] ([place]) Comment on above: Performed By: #### A DIFF, TROPHS, GFR, BMP, MDW, CBC, PBNP, ANEU #### [address] [address] Chloride [Moles/Vol] 100 mmol/L Normal 98-110 [facility] ([place]) Comment on above: Performed By: #### A DIFF, TROPHS, GFR, BMP, MDW, CBC, PBNP, ANEU #### [address] [address] CO2 [Moles/Vol] 36 mmol/L High 22-32 [facility] ([place]) Comment on above: Performed By: #### A DIFF, TROPHS, GFR, BMP, MDW, CBC, PBNP, ANEU #### [address] [address] Creatinine [Mass/Vol] 0.75 mg/dL Normal 0.60-1.40 On license of [facility] ([place]) Comment on above: Performed By: #### A DIFF, TROPHS, GFR, BMP, MDW, CBC, PBNP, ANEU #### [address] [address] Electrolyte Balance 1.0 mEq/L Low 4.0-15.0 [facility] ([place]) Comment on above: Performed By: #### A DIFF, TROPHS, GFR, BMP, MDW, CBC, PBNP, ANEU #### [address] [address] Glucose [Mass/Vol] 160 mg/dL High 70-110 [facility] ([place]) Comment on above: Performed By: #### A DIFF, TROPHS, GFR, BMP, MDW, CBC, PBNP, ANEU #### [address] [address] Potassium [Moles/Vol] 3.4 mmol/L Low 3.5-5.0 On license of [facility] ([place]) Comment on above: Result Comment: Spec imen slightly hemolyzed. Performed By: #### A DIFF, TROPHS, GFR, BMP, MDW, CBC, PBNP, ANEU #### [address] [address] Sodium [Moles/Vol] 137 mmol/L Normal 136-145 [facility] ([place]) Comment on above: Performed By: #### A DIFF, TROPHS, GFR, BMP, MDW, CBC, PBNP, ANEU #### [address] [address] Urea nitrogen [Mass/Vol] 8.0 mg/dL Normal 8.0-22.0 [facility] ([place]) Comment on above: Performed By: #### A DIFF, TROPHS, GFR, BMP, MDW, CBC, PBNP, ANEU #### [address] [address] CBCon 06-08-2023 Erythrocyte distribution width (RBC) [Ratio] 13.1 % Normal 11.5-15.5 [facility] ([place]) Comment on above: Performed By: #### A DIFF, TROPHS, GFR, BMP, MDW, CBC, PBNP, ANEU #### [address] [address] Hematocrit (Bld) [Volume fraction] 45.7 % Normal 40.0-52.0 [facility] ([place]) Comment on above: Performed By: #### A DIFF, TROPHS, GFR, BMP, MDW, CBC, PBNP, ANEU #### [address] [address] Hgb 15.6 G/dL Normal 13.0-17.5 [facility] ([place]) Comment on above: Performed By: #### A DIFF, TROPHS, GFR, BMP, MDW, CBC, PBNP, ANEU #### [address] [address] MCH (RBC) [Entitic mass] 29.1 pg Normal 27.0-33.0 [facility] ([place]) Comment on above: Performed By: #### A DIFF, TROPHS, GFR, BMP, MDW, CBC, PBNP, ANEU #### [address] [address] MCHC 34.3 G/dL Normal 32.0-36.0 [facility] ([place]) Comment on above: Performed By: #### A DIFF, TROPHS, GFR, BMP, MDW, CBC, PBNP, ANEU #### [address] [address] MCV (RBC) [Entitic vol] 85.0 fL Normal 81.0-100.0 [facility] ([place]) Comment on above: Performed By: #### A DIFF, TROPHS, GFR, BMP, MDW, CBC, PBNP, ANEU #### [address] [address] Platelet 200 10 3/mcL Normal 150-450 [facility] ([place]) Comment on above: Performed By: #### A DIFF, TROPHS, GFR, BMP, MDW, CBC, PBNP, ANEU #### [address] [address] Platelet mean volume (Bld) [Entitic vol] 7.5 fL Normal 6.4-10.5 [facility] ([place]) Comment on above: Performed By: #### A DIFF, TROPHS, GFR, BMP, MDW, CBC, PBNP, ANEU #### [facility] [address] [place], [place] [address] RBC 5.37 10 6/mcL Normal 4.50-6.00 [facility] ([place]) Comment on above: Performed By: #### A DIFF, TROPHS, GFR, BMP, MDW, CBC, PBNP, ANEU #### [facility] [address] [place], [place] [address] WBC 7.9 10 3/mcL Normal 4.5-10.8 [facility] ([place]) Comment on above: Performed By: #### A DIFF, TROPHS, GFR, BMP, MDW, CBC, PBNP, ANEU #### [place] [address] [place], [place] [address] LABORATORYOrdered By: Adenike Swain on 06-08-2023 Blood Glucose Testing Reason Routine (06/08/23 9:18 PM) [facility] Glucose [Mass/Vol] 173 mg/dL High 70 - 110 mg/dL [facility] LABORATORYOrdered By: SYSTEM SYSTEM on 06-08-2023 Basophils [...] (S/P/Bld) [Vol rate/Area] ml/min/1.73sqm Invalid Interpretation Code [facility] Comment on above: Interpretive Data: GFR Population [...] (S/P/Bld) [Vol rate/Area] ml/min/1.73sqm Invalid Interpretation Code [facility] Comment on above: Interpretive Data: GFR Population [...] 110 mg/dL ADM Hematocrit (Bld) [Volume fraction] 45.7 % Normal 40.0 - 52.0 % Workflow Hemoglobin (Bld) [Mass/Vol] 15.6 G/dL Normal 13.0 [...] 85.0 fL Normal 81.0 - 100.0 fL Workflow SS Monocytes (Bld) [#/Vol] 0.8 103/mcL Normal 0.1 - 1.4 10^3/mcL AH Workflow SS Monocytes/100 WBC (Bld) 9.9 % Normal 2.0 - 13.0 % AH Workflow SS Neutrophils (Bld) [#/Vol] 5.7 103/mcL Normal 2.3 - 8.1 10^3/mcL AH Workflow SS Neutrophils/100 WBC (Bld) 71.4 % Normal 50.0 - 75.0 % Workflow [...] 06-08-2023 Magnesium [Mass/Vol] 2.1 mg/dL Normal 1.6-2.4 [facility] ([place]) Comment on above: Performed By: #### A DIFF, TROPHS, GFR, BMP, MDW, CBC, PBNP, ANEU #### [address] [address] .Auto Diffon 06-07-2023 Basophil, Absolute 0.1 10 3/mcL Normal 0.0-0.3 [facility] ([place]) Comment on above: Performed By: #### A DIFF, TROPHS, GFR, BMP, MDW, CBC, PBNP, ANEU #### [address] [address] Basophils/100 WBC (Bld) 0.6 % Normal 0.0-2.5 [facility] ([place]) Comment on above: Performed By: #### A DIFF, TROPHS, GFR, BMP, MDW, CBC, PBNP, ANEU #### [address] [address] Eosinophil, Absolute 0.2 10 3/mcL Normal 0.0-0.7 [facility] ([place]) Comment on above: Performed By: #### A DIFF, TROPHS, GFR, BMP, MDW, CBC, PBNP, ANEU #### [address] [address] Eosinophils/100 WBC (Bld) 1.6 % Normal 0.0-6.0 [facility] ([place]) Comment on above: Performed By: #### A DIFF, TROPHS, GFR, BMP, MDW, CBC, PBNP, ANEU #### [address] [address] Lymphocyte, Absolute 1.4 10 3/mcL Normal 0.9-4.3 [facility] ([place]) Comment on above: Performed By: #### A DIFF, TROPHS, GFR, BMP, MDW, CBC, PBNP, ANEU #### [address] [address] Lymphocytes/100 WBC (Bld) 14.0 % Low 20.0-40.0 [facility] ([place]) Comment on above: Performed By: #### A DIFF, TROPHS, GFR, BMP, MDW, CBC, PBNP, ANEU #### [address] [address] Monocyte, Absolute 0.6 10 3/mcL Normal 0.1-1.4 [facility] ([place]) Comment on above: Performed By: #### A DIFF, TROPHS, GFR, BMP, MDW, CBC, PBNP, ANEU #### [address] [address] Monocytes/100 WBC (Bld) 6.4 % Normal 2.0-13.0 [facility] ([place]) Comment on above: Performed By: #### A DIFF, TROPHS, GFR, BMP, MDW, CBC, PBNP, ANEU #### [address] [address] Neutrophils/100 WBC (Bld) 77.4 % High 50.0-75.0 [facility] ([place]) Comment on above: Performed By: #### A DIFF, TROPHS, GFR, BMP, MDW, CBC, PBNP, ANEU #### [address] [address] .GFRon 06-07-2023 GFR >60 Normal [facility] ([place]) Comment on above: Result Comment: GFR [...] GFR, BMP, MDW, CBC, PBNP, ANEU #### [address] [address] GFR Non- >60 Normal [facility] ([place]) Comment on above: Result [...] GFR, BMP, MDW, CBC, PBNP, ANEU #### [address] [address] .NEUABSon 06-07-2023 Neutrophil, Absolute 7.7 10 3/mcL Normal 2.3-8.1 [facility] ([place]) Comment on above: Performed By: #### A DIFF, TROPHS, GFR, BMP, MDW, CBC, PBNP, ANEU #### [address] [address] CBCon 06-07-2023 Erythrocyte distribution width (RBC) [Ratio] 14.0 % Normal 11.5-15.5 [facility] ([place]) Comment on above: Performed By: #### A DIFF, TROPHS, GFR, BMP, MDW, CBC, PBNP, ANEU #### [address] [address] Hematocrit (Bld) [Volume fraction] 47.6 % Normal 40.0-52.0 [facility] ([place]) Comment on above: Performed By: #### A DIFF, TROPHS, GFR, BMP, MDW, CBC, PBNP, ANEU #### [place] [id number] Hgb 16.3 G/dL Normal 13.0-17.5 [facility] ([place]) Comment on above: Performed By: #### A DIFF, TROPHS, GFR, BMP, MDW, CBC, PBNP, ANEU #### [address] [address] MCH (RBC) [Entitic mass] 29.1 pg Normal 27.0-33.0 [facility] ([place]) Comment on above: Performed By: #### A DIFF, TROPHS, GFR, BMP, MDW, CBC, PBNP, ANEU #### [address] [address] MCHC 34.2 G/dL Normal 32.0-36.0 [facility] ([place]) Comment on above: Performed By: #### A DIFF, TROPHS, GFR, BMP, MDW, CBC, PBNP, ANEU #### [address] [address] MCV (RBC) [Entitic vol] 84.9 fL Normal 81.0-100.0 [facility] ([place]) Comment on above: Performed By: #### A DIFF, TROPHS, GFR, BMP, MDW, CBC, PBNP, ANEU #### [address] [address] Platelet 228 10 3/mcL Normal 150-450 [facility] ([place]) Comment on above: Performed By: #### A DIFF, TROPHS, GFR, BMP, MDW, CBC, PBNP, ANEU #### [address] [address] Platelet mean volume (Bld) [Entitic vol] 8.0 fL Normal 6.4-10.5 [facility] ([place]) Comment on above: Performed By: #### A DIFF, TROPHS, GFR, BMP, MDW, CBC, PBNP, ANEU #### [place] [id number] RBC 5.61 10 6/mcL Normal 4.50-6.00 [facility] ([place]) Comment on above: Performed By: #### A DIFF, TROPHS, GFR, BMP, MDW, CBC, PBNP, ANEU #### [address] [address] WBC 9.9 10 3/mcL Normal 4.5-10.8 [facility] ([place]) Comment on above: Performed By: #### A DIFF, TROPHS, GFR, BMP, MDW, CBC, PBNP, ANEU #### [address] [address] CMPon 06-07-2023 Albumin Level 3.3 G/dL Normal 3.2-4.8 [facility] ([place]) Comment on above: Order Comment: hemol yzed. needs redrawn Performed By: #### A DIFF, TROPHS, GFR, BMP, MDW, CBC, PBNP, ANEU #### [address] [address] Albumin/Globulin [Mass ratio] 0.9 {ratio} Normal 0.9-1.6 [facility] ([place]) Comment on above: Order Comment: hemol yzed. needs redrawn Performed By: #### A DIFF, TROPHS, GFR, BMP, MDW, CBC, PBNP, ANEU #### [address] [address] ALP [Catalytic activity/Vol] 93 U/L Normal 38-126 [facility] ([place]) Comment on above: Order Comment: hemol yzed. needs redrawn Performed By: #### A DIFF, TROPHS, GFR, BMP, MDW, CBC, PBNP, ANEU #### [address] [address] ALT [Catalytic activity/Vol] 13 U/L Normal 12-55 [facility] ([place]) Comment on above: Order Comment: hemol yzed. needs redrawn Performed By: #### A DIFF, TROPHS, GFR, BMP, MDW, CBC, PBNP, ANEU #### [address] [address] AST [Catalytic activity/Vol] 13 U/L Normal 8-34 [facility] ([place]) Comment on above: Order Comment: hemol yzed. needs redrawn Performed By: #### A DIFF, TROPHS, GFR, BMP, MDW, CBC, PBNP, ANEU #### [address] [address] Bili Total 0.30 mg/dL Normal 0.20-1.20 [facility] ([place]) Comment on above: Order Comment: hemol yzed. needs redrawn Result Comment: Use of this assay is not recommended for patients undergoing treatment with eltrombopag due to the potential for falsely elevated results. Performed By: #### A DIFF, TROPHS, GFR, BMP, MDW, CBC, PBNP, ANEU #### [address] [address] BUN/Creatinine Ratio 10.8 ratio Normal 10.0-22.0 [facility] ([place]) Comment on above: Order Comment: hemol yzed. needs redrawn Performed By: #### A DIFF, TROPHS, GFR, BMP, MDW, CBC, PBNP, ANEU #### [address] [address] Calcium [Mass/Vol] 8.8 mg/dL Normal 8.7-10.4 [facility] ([place]) Comment on above: Order Comment: hemol yzed. needs redrawn Performed By: #### A DIFF, TROPHS, GFR, BMP, MDW, CBC, PBNP, ANEU #### [address] [address] Chloride [Moles/Vol] 97 mmol/L Low 98-110 [facility] ([place]) Comment on above: Order Comment: hemol yzed. needs redrawn Performed By: #### A DIFF, TROPHS, GFR, BMP, MDW, CBC, PBNP, ANEU #### [address] [address] CO2 [Moles/Vol] 37 mmol/L High 22-32 [facility] ([place]) Comment on above: Order Comment: hemol yzed. needs redrawn Performed By: #### A DIFF, TROPHS, GFR, BMP, MDW, CBC, PBNP, ANEU #### [address] [address] Creatinine [Mass/Vol] 0.93 mg/dL Normal 0.60-1.40 On license of [facility] ([place]) Comment on above: Order Comment: hemol yzed. needs redrawn Performed By: #### A DIFF, TROPHS, GFR, BMP, MDW, CBC, PBNP, ANEU #### [address] [address] Electrolyte Balance 3.0 mEq/L Low 4.0-15.0 [facility] ([place]) Comment on above: Order Comment: hemol yzed. needs redrawn Performed By: #### A DIFF, TROPHS, GFR, BMP, MDW, CBC, PBNP, ANEU #### [address] [address] Globulin 3.6 G/dL Normal 1.5-3.8 [facility] ([place]) Comment on above: Order Comment: hemol yzed. needs redrawn Performed By: #### A DIFF, TROPHS, GFR, BMP, MDW, CBC, PBNP, ANEU #### [address] [address] Glucose [Mass/Vol] 209 mg/dL High 70-110 [facility] ([place]) Comment on above: Order Comment: hemol yzed. needs redrawn Performed By: #### A DIFF, TROPHS, GFR, BMP, MDW, CBC, PBNP, ANEU #### [address] [address] Potassium [Moles/Vol] 3.6 mmol/L Normal 3.5-5.0 On license of [facility] ([place]) Comment on above: Order Comment: hemol yzed. needs redrawn Result Comment: Spec imen slightly hemolyzed. Performed By: #### A DIFF, TROPHS, GFR, BMP, MDW, CBC, PBNP, ANEU #### [address] [address] Sodium [Moles/Vol] 137 mmol/L Normal 136-145 [facility] ([place]) Comment on above: Order Comment: hemol yzed. needs redrawn Performed By: #### A DIFF, TROPHS, GFR, BMP, MDW, CBC, PBNP, ANEU #### [place] [address] [place], [place] [address] Total Protein 6.9 G/dL Normal 5.7-8.2 [facility] ([place]) Comment on above: Order Comment: hemol yzed. needs redrawn Result Comment: No te - New Reference Range in effect 19 Performed By: #### A DIFF, TROPHS, GFR, BMP, MDW, CBC, PBNP, ANEU #### [place] [address] [place], [place] [address] Urea nitrogen [Mass/Vol] 10.0 mg/dL Normal 8.0-22.0 [facility] ([place]) Comment on above: Order Comment: hemol yzed. needs redrawn Performed By: #### A DIFF, TROPHS, GFR, BMP, MDW, CBC, PBNP, ANEU #### [address] [address] LABORATORYOrdered By: SYSTEM SYSTEM on 06-07-2023 Albumin BCP dye [Mass/Vol] 3.3 G/dL Normal 3.2 - 4.8 G/dL ADM SS Albumin/Globulin [Mass ratio] 0.9 {ratio} Normal 0.9 - 1.6 ratio AH ADM SS ALP [Catalytic activity/Vol] 93 U/L [...] Normal 10.0 - 22.0 ratio ADM SS Basophils (Bld) [#/Vol] 0.1 103/mcL Normal 0.0 - 0.3 10^3/mcL AH Workflow SS Basophils/100 WBC (Bld) 0.6 % Normal 0.0 - 2.5 % AH Workflow SS Eosinophils (Bld) [#/Vol] 0.2 103/mcL Normal 0.0 - 0.7 10^3/mcL AH Workflow SS Eosinophils/100 WBC (Bld) 1.6 % Normal 0.0 - 6.0 % Workflow SS Erythrocyte distribution width (RBC) [Ratio] 14.0 % Normal 11.5 - 15.5 % AH Workflow SS Hematocrit (Bld) [Volume fraction] 47.6 % Normal 40.0 - 52.0 % AH Workflow SS Hemoglobin (Bld) [Mass/Vol] 16.3 G/dL Normal 13.0 - 17.5 G/dL AH Workflow SS Lymphocytes (Bld) [#/Vol] 1.4 103/mcL Normal 0.9 - 4.3 10^3/mcL Workflow SS Lymphocytes/100 WBC (Bld) 14.0 % Low 20.0 - 40.0 % Workflow SS MCH (RBC) [Entitic mass] 29.1 pg Normal 27.0 - 33.0 pg Workflow SS MCHC 34.2 G/dL Normal 32.0 [...] 06-07-2023 Magnesium [Mass/Vol] 1.7 mg/dL Normal 1.6-2.4 [facility] ([place]) Comment on above: Performed By: #### A DIFF, TROPHS, GFR, BMP, MDW, CBC, PBNP, ANEU #### [address] [address] XR CHEST 1 VIEWon 05-05-2023 XR CHEST [...] Date: 05/05/2023 9:17:04 PM Ordering Provider: [facility] ([place]) XR RIBS 2 VIEWS RIGHTon XR RIBS [...] Date: 05/05/2023 9:08:30 PM Ordering Provider: [facility] ([place]) PBNPon 03-22-2023 Natriuretic peptide B (Bld) [Mass/Vol] 378 pg/mL High 0-125 [facility] ([place]) Comment on above: Result Comment: NT-p roBNP results of less than 300 pg/mL effectively rules out acute congestive heart failure with 99% negative predictive value. Performed By: #### A DIFF, TROPHS, GFR, BMP, MDW, CBC, PBNP, ANEU #### [address] [address] Influenza virus A and B and SARS-CoV-2 (COVID-19) Ag panel - Upper respiratory specimOrdered By: Nguyễn Al on 02-12-2023 SARS-CoV-2 (COVID-19) RNA ROSE+probe Ql (Resp) [facility] LABORATORYOrdered By: SYSTEM SYSTEM on 12-23-2022 [...] 150 mg/dL AO ADM SS LABORATORYOrdered By: [employer] SYSTEM on 10-27-2022 Albumin BCP dye [Mass/Vol] [...] Auto (Unsp spec) [#/Vol] 1.50 10*3/uL 0.83-4.51 [facility] Basophil percentageOrdered B y: Dr. Brown on 10-23-2022 Basophils/100 WBC (Bld) 0.8 % 0-1 [facility] Chloride [Moles/Vol] 102 mmol/L 98-107 [facility] Eosinophils/100 WBC (Bld) 2.4 % 0-5 [facility] Glucose [Mass/Vol] 126 mg/dL 74-106 [facility] Comment on above: Fasting Glucose resu lt greater than or equal to 126 mg/dL suggests DIABETES MELLITUS per A.D.A. criteria. Neutrophils (Bld) [#/Vol] 5.4 10*3/uL 2.0-7.7 [facility] Neutrophils/100 WBC (Bld) 67.9 % 47-70 [facility] Potassium [Moles/Vol] 3.2 mmol/L 3.5-5.1 [facility] Sodium [Moles/Vol] 140 mmol/L 136-145 [facility] WBC (Bld) [#/Vol] 7.9 10*3/uL 4.4-11.0 [facility] Blood erythrocytes count (nu mber/volume)Ordered By: Dr. Brown on 10-23-2022 RBC (Bld) [#/Vol] 6.06 10*6/uL 4.6-6.2 [facility] [place] [facility] Blood hemoglobin measurement (mass/volume)Ordered By: Dr. Brown on 10-23-2022 Hemoglobin (Bld) [Mass/Vol] 17.2 g/dL 13.0-16.5 [facility] Blood lymphocytes/100 leukoc ytesOrdered By: Dr. Brown on 10-23-2022 Lymphocytes/100 WBC (Bld) 19.0 % 19-41 [facility] Blood monocytes/100 leukocyt esOrdered By: Dr. Brown on 10-23-2022 Monocytes/100 WBC (Bld) 9.6 % 0-10 [facility] Blood platelet mean volumeOr dered By: Dr. Brown on 10-23-2022 Platelet mean volume (Bld) [Entitic vol] 10.3 fL 6.2-12.0 [facility] Determination of erythrocyte mean corpuscular volume (MCV)Ordered By: Dr. Brown on 10-23-2022 MCV (RBC) [Entitic vol] 89.6 fL 80-94 [facility] Hematocrit Auto (Bld) [Volum e fraction]Ordered By: Dr. Brown on 10-23-2022 Hematocrit (Bld) [Volume fraction] 54.3 % 40-54 [facility] Laboratory - Chemistry and C hemistry - challengeOrdered By: Dr. Brown on 10-23-2022 CO2 [Moles/Vol] 32.0 mmol/L 21.0-32.0 [facility] Natriuretic peptide B (Bld) [Mass/Vol] 182.2 pg/mL 0-100 [facility] Urea nitrogen/Creatinine [Mass ratio] 13.0 mg/mg 10-20 [facility] - Hematology and Cell countsOrdered By: Dr. Brown on 10-23-2022 Erythrocyte distribution width (RBC) [Entitic vol] 46.1 fL 35.1-43.9 [facility] Erythrocyte distribution width (RBC) [Ratio] 14.1 % 11.6-14.6 [facility] Immature granulocytes/100 WBC (Bld) 0.300 % 0.0-0.9 [facility] Comment on above: IG% - Immature Granu locytes (promyelocytes, myelocytes and metamyelocytes) > 1% indicates that a LEFT SHIFT is Present. MCH (RBC) [Entitic mass] 28.4 pg 27.0-32.0 [facility] Nucleated RBC/100 WBC (Bld) [Ratio] 0 % 0-5 [facility] MCHC Auto (RBC) [Mass/Vol]Or dered By: Dr. Brown on 10-23-2022 MCHC (RBC) [Mass/Vol] 31.7 g/dL 32-36 [facility] No Panel InformationOrdered By: Dr. Brown on 10-23-2022 Troponin I High Sensitivity 14 pg/mL 3.0-78.0 [facility] Comment on above: Please Note: New [place] t Units and Gender Specific Reference Ranges. For more information see Policy Stat Procedure Zahl High Sensitivity Troponin (TNIH) and attachments. Estimated Creatinine Clearance Calc 104.04 ml/min [facility] Estimated GFR (MDRD) Amer 123 mL/min >60 [facility] Comment on above: GFR Calc Estimated GFR (MDRD) Non-Af Amer 102 mL/min >60 [facility] Comment on above: Non- GFR Calc Platelets bldOrdered By: Dr. Brown on 10-23-2022 Platelets (Bld) [#/Vol] 234 10*3/uL 150-450 [facility] Serum or plasma calcium scott urement (mass/volume)Ordered By: Dr. Brown on 10-23-2022 Calcium [Mass/Vol] 8.7 mg/dL 8.5-10.1 [facility] Serum or plasma creatinine m easurement (mass/volume)Ordered By: Dr. Brown on 10-23-2022 Creatinine [Mass/Vol] 0.84 mg/dL 0.70-1.30 [facility] Comment on above: The validity of the calculated GFR & GFRAA in patients over 70 years has not been determined. Clinical correlation is essential. Serum or plasma urea nitroge n measurement (mass/volume)Ordered By: Dr. Brown on 10-23-2022 Urea nitrogen [Mass/Vol] 11 mg/dL 7-18 [facility] Thin prep Papanicolaou smear with manual screeningOrdered By: Dr. Brown on 10-23-2022 Thin prep Papanicolaou smear with manual screening 6 5-15 [facility] Invasive Cardiology Clinic N oteon 08-24-2021 Invasive Cardiology Clinic Note . [facility] A Division of [facility] Gem Barr M.D., [facility] [address] [place] [address] * Reason for VisitFOLLOW UP CHEST PAIN(1) [...] me to participate in your patient's care. Weed Controller Statement: Transcribed for Dr. Barr by LEWIS , it data architect. Electronic Signatures: Gem Barr) (Signed 11:31) Authored: Letterhead Option, Reason for Visit, Vital Signs, Allergies/Meds, History of Present Illness, Past Medical, Surgical and Family History, ROS, Physical Exam, Results, Assessment and Plan, Weed Controller Statement Km Phan (Pocket Stitcher) (Entered 15:30) Entered: Letterhead Option, Reason for Visit, Vital Signs, Allergies/Meds, History of Pr (more content not included)... Normal [facility] Echocardiogram-Completeon Echocardiogram-Comple te Study ID: [id number] [facility] [place] [address] Name: SOCORRO KELLEY JR Study Date: 08/17/2021 07:55 AM BP: 152/92 mmHg Patient Location: [facility] HR: 84 : 1970 Gender: Male [...] mmHg MV P1/2t-pr: 94.6 msec E/LatE': 9.4 [id number] Normal [facility] Invasive Cardiology Clinic N mary 08-02-2021 Invasive Cardiology Clinic Note . [facility] A Division of [facility] Gem Barr M.D., [place] [address] * Reason for VisitFOLLOW UP CHEST PAIN(1) [...] to con (more content not included)... Normal [facility] 01-29-2021 ER EMERGENCY ROOM NOTE CHIEF COMPLAINT: [...] up with his primary care physician and/or budget clerk. Normal [facility] GLYCOHEMOGLOBINon 01-06-2021 HbA1c (Bld) [Mass fraction] 6.43 % High 4.60-6.30 [facility] Comment on above: Performed By: #### % A1c #### [facility] [address] [place] [id number] SUE Flores MD LIPID PROFILE - FASTINGon Cholesterol [Mass/Vol] 152 mg/dL Normal <=200 [facility] Comment on above: Performed By: #### L IPID #### [facility] [address] [place] [id number] SUE Flores MD Cholesterol in HDL [Mass/Vol] 28 mg/dL Low 40-60 [facility] Comment on above: Performed By: #### L IPID #### [facility] [address] [place] [id number] SUE Flores MD Cholesterol in LDL [Mass/Vol] 85 mg/dL Normal 0-130 [facility] Comment on above: Performed By: #### L IPID #### [facility] [address] [place] [address] SUE Flores MD COMMENT Recommended (Desirable) < 130mg/dL Moderate Risk 130-159 mg/dL High Risk: >/= 130 mg/dL Normal [facility] Comment on above: Performed By: #### L IPID #### [facility] [address] [place] [address] SUE Flores MD Triglyceride [Mass/Vol] 198 mg/dL High <=150 [facility] Comment on above: Performed By: #### L IPID #### [facility] [address] [place] [address] SUE Flores MD RENAL FUNCTION PANELon 01-06 Albumin [Mass/Vol] 4.4 g/dL Normal 3.5-5.[address] [facility] Comment on above: Performed By: #### R FP #### [facility] [address] [place] [address] SUE Flores MD Calcium [Mass/Vol] 9.6 mg/dL Normal 8.4-10.[address] [facility] Comment on above: Performed By: #### R FP #### [facility] [address] [place] [address] SUE Flores MD Chloride [Moles/Vol] 96 mmol/L Low 98-107 [facility] Comment on above: Performed By: #### R FP #### [facility] [address] [place] [address] SUE Flores MD Creatinine [Mass/Vol] 0.9 mg/dL Normal 0.7-1.3 [facility] Comment on above: Performed By: #### R FP #### [facility] [address] [place] [address] SUE Flores MD ECO2 29 mmol/L Normal 22-30 [facility] Comment on above: Performed By: #### R FP #### [facility] [address] [place] [address] SUE Flores MD EGFR-AF ANDORRAN 109 mL/min/1.73m 2 Normal >=60 [facility] Comment on above: Performed By: #### R FP #### [facility] [address] [place], [place] [id number] SUE Flores MD EGFR-NON AF ANDORRAN 90 mL/min/1.73 m 2 Normal >=60 [facility] Comment on above: Performed By: #### R FP #### [facility] [address] [place], [place] [id number] SUE Flores MD Glucose [Mass/Vol] 146 mg/dL High 70-[address] [facility] Comment on above: Performed By: #### R FP #### [facility] [address] [place] [address] SUE Flores MD Phosphate [Mass/Vol] 4.2 mg/dL Normal 2.5-4.5 [facility] Comment on above: Performed By: #### R FP #### [facility] [address] [place], [place] [id number] SUE Flores MD Potassium [Moles/Vol] 4.0 mmol/L Normal 3.5-5.0 [facility] Comment on above: Performed By: #### R FP #### [facility] [address] [place], [place] [id number] SUE Flores MD Sodium [Moles/Vol] 136 mmol/L Low 137-[address] [facility] Comment on above: Performed By: #### R FP #### [facility] [address] [place], [place] [id number] SUE Flores MD Urea nitrogen [Mass/Vol] 13 mg/dL Normal 9-20 [facility] Comment on above: Performed By: #### R FP #### [facility] [address] [place], [place] [id number] SUE Flores MD CHEST TWO VIEWSon 11-09-2020 [...] DYER MD Date: 11/09/2020 3:55 PM Normal [facility] CBC PLT DIFFon 06-11-2020 BASO # 0.04 10 3/uL Normal 0.00-0.10 [facility] Comment on above: Performed By: #### C BC #### [facility] [address] [place], [place] [id number] SUE Flores MD Basophils/100 WBC (Bld) 0.5 % Normal 0.2-1.0 [facility] Comment on above: Performed By: #### C BC #### [facility] [address] [place] [address] SUE Flores MD EOS# 0.19 10 3/uL Normal 0.00-0.20 [facility] Comment on above: Performed By: #### C BC #### [facility] [address] [place] [address] SUE Flores MD Eosinophils/100 WBC (Bld) 2.3 % Normal 0.9-2.9 [facility] Comment on above: Performed By: #### C BC #### [facility] [address] [place] [address] SUE Flores MD Erythrocyte distribution width (RBC) [Ratio] 13.4 % Normal 11.5-15.5 [facility] Comment on above: Performed By: #### C BC #### [facility] [address] [place] [address] SUE Flores MD Hematocrit (Bld) [Volume fraction] 46.5 % Normal 42.0-52.0 [facility] Comment on above: Performed By: #### C BC #### [facility] [address] [place], [place] [id number] SUE Flores MD Hemoglobin (Bld) [Mass/Vol] 16.0 g/dL Normal 14.0-18.0 [facility] Comment on above: Performed By: #### C BC #### [facility] [address] [place] [address] SUE Flores MD IG# 0.04 10 3/uL Normal [facility] Comment on above: Performed By: #### C BC #### [facility] [address] [place] [address] SUE Flores MD IG% 0.5 % Normal [facility] Comment on above: Performed By: #### C BC #### [facility] [address] [place] [address] SUE Flores MD LYMPH# 1.41 10 3/uL Normal 1.30-2.90 [facility] Comment on above: Performed By: #### C BC #### [facility] [address] [place], [place] [id number] SUE Flores MD Lymphocytes/100 WBC (Bld) 17.4 % Low 20.5-45.5 [facility] Comment on above: Performed By: #### C BC #### [facility] [address] [place] [address] SUE Flores MD MCH (RBC) [Entitic mass] 30.1 pg Normal 27.0-31.0 [facility] Comment on above: Performed By: #### C BC #### [facility] [address] [place] [address] SUE Flores MD MCHC (RBC) [Mass/Vol] 34.4 g/dL Normal 32.0-36.0 [facility] Comment on above: Performed By: #### C BC #### [facility] [address] [place] [address] SUE Flores MD MCV (RBC) [Entitic vol] 87.6 fL Normal 80.0-94.0 [facility] Comment on above: Performed By: #### C BC #### [facility] [address] [place] [address] SUE Flores MD MONO# 0.67 10 3/uL Normal 0.30-0.80 [facility] Comment on above: Performed By: #### C BC #### [facility] [address] [place] [address] SUE Flores MD Monocytes/100 WBC (Bld) 8.3 % Normal 5.5-11.7 [facility] Comment on above: Performed By: #### C BC #### [facility] [address] [place], [place] [id number] SUE Flores MD Morphology Rocky (Bld) [Interp] Normal [facility] Comment on above: Performed By: #### C BC #### [facility] [address] [place] [address] SUE Flores MD NEUT# 5.75 10 3/uL High 2.20-4.80 [facility] Comment on above: Performed By: #### C BC #### [facility] [address] [place] [address] SUE Flores MD Neutrophils/100 WBC (Bld) 71.0 % High 43.0-65.0 [facility] Comment on above: Performed By: #### C BC #### [facility] [address] [place], [place] [id number] SUE Flores MD NRBC# 0.00 10 3/uL Normal [facility] Comment on above: Performed By: #### C BC #### [facility] [address] [place], [place] [id number] SUE Flores MD Nucleated RBC/100 WBC (Bld) [Ratio] 0.0 % Normal [facility] Comment on above: Performed By: #### C BC #### [facility] [address] [place], [place] [id number] SUE Flores MD Platelet mean volume (Bld) [Entitic vol] 8.4 fL Normal 7.4-10.4 [facility] Comment on above: Performed By: #### C BC #### [facility] [address] [place], [place] [id number] SUE Flores MD PLT 221 10 3/uL Normal 130-400 [facility] Comment on above: Performed By: #### C BC #### [facility] [address] [place], [place] [id number] SUE Flores MD RBC 5.31 10 6/uL Normal 4.70-6.10 [facility] Comment on above: Performed By: #### C BC #### [facility] [address] [place], [place] [id number] SUE Flores MD WBC 8.10 10 3/uL Normal 4.70-10.80 [facility] Comment on above: Performed By: #### C BC #### [facility] [address] [place], [place] [id number] SUE Flores MD CMPon 06-11-2020 Albumin [Mass/Vol] 4.1 g/dL Normal 3.5-5.[address] [facility] Comment on above: Performed By: #### C MP #### [facility] [address] [place] [address] SUE Flores MD ALP [Catalytic activity/Vol] 72 U/L Normal 38-126 [facility] Comment on above: Performed By: #### C MP #### [facility] [address] [place] [address] SUE Flores MD ALT [Catalytic activity/Vol] 17 U/L Low 21-72 [facility] Comment on above: Performed By: #### C MP #### [facility] [address] [place] [address] SUE Flores MD AST [Catalytic activity/Vol] 21 U/L Normal 17-59 [facility] Comment on above: Performed By: #### C MP #### [facility] [address] [place], [place] [id number] SUE Flores MD Bilirubin [Mass/Vol] 0.6 mg/dL Normal 0.2-1.3 [facility] Comment on above: Performed By: #### C MP #### [facility] [address] [place], [place] [id number] SUE Flores MD Calcium [Mass/Vol] 8.9 mg/dL Normal 8.4-10.[address] [facility] Comment on above: Performed By: #### C MP #### [facility] [address] [place], [place] [id number] SUE Flores MD Chloride [Moles/Vol] 99 mmol/L Normal 98-107 [facility] Comment on above: Performed By: #### C MP #### [facility] [address] [place] [address] SUE Flores MD Creatinine [Mass/Vol] 0.7 mg/dL Normal 0.7-1.3 [facility] Comment on above: Performed By: #### C MP #### [facility] [address] [place] [address] SUE Flores MD ECO2 30 mmol/L Normal 22-30 [facility] Comment on above: Performed By: #### C MP #### [facility] [address] [place] [address] SUE Flores MD EGFR-AF ANDORRAN 146 mL/min/1.73m 2 Normal >=60 [facility] Comment on above: Performed By: #### C MP #### [facility] [address] [place] [address] SUE Flores MD EGFR-NON AF ANDORRAN 120 mL/min/1.73 m 2 Normal >=60 [facility] Comment on above: Performed By: #### C MP #### [facility] [address] [place] [address] SUE Flores MD Glucose [Mass/Vol] 125 mg/dL High 70-[address] [facility] Comment on above: Performed By: #### C MP #### [facility] [address] [place] [address] SUE Flores MD Potassium [Moles/Vol] 3.6 mmol/L Normal 3.5-5.0 [facility] Comment on above: Performed By: #### C MP #### [facility] [address] [place] [address] SUE Flores MD Protein [Mass/Vol] 7.4 g/dL Normal 6.3-8.[address] [facility] Comment on above: Performed By: #### C MP #### [facility] [address] [place], [place] [id number] SUE Flores MD Sodium [Moles/Vol] 136 mmol/L Low 137-[address] [facility] Comment on above: Performed By: #### C MP #### [facility] [address] [place], [place] [id number] SUE Flores MD Urea nitrogen [Mass/Vol] 11 mg/dL Normal 9-20 [facility] Comment on above: Performed By: #### C MP #### [facility] [address] [place] [address] SUE Flores MD GLYCOHEMOGLOBINon 06-11-2020 HbA1c (Bld) [Mass fraction] 6.22 % Normal 4.00-6.30 [facility] Comment on above: Performed By: #### % A1c #### [facility] [address] [place] [address] SUE Flores MD LIPID PROFILE - FASTINGon Cholesterol [Mass/Vol] 147 mg/dL Normal <=200 [facility] Comment on above: Performed By: #### L IPID #### [facility] [address] [place] [address] SUE Flores MD Cholesterol in HDL [Mass/Vol] 24 mg/dL Low 40-60 [facility] Comment on above: Performed By: #### L IPID #### [facility] [address] [place] [address] SUE Flores MD Cholesterol in LDL [Mass/Vol] 89 mg/dL Normal 0-130 [facility] Comment on above: Performed By: #### L IPID #### [facility] [address] [place] [address] SUE Flores MD COMMENT Recommended (Desirable) < 130mg/dL Moderate Risk 130-159 mg/dL High Risk: >/= 130 mg/dL Normal [facility] Comment on above: Performed By: #### L IPID #### [facility] [address] [place] [address] SUE Flores MD Triglyceride [Mass/Vol] 167 mg/dL High <=150 [facility] Comment on above: Performed By: #### L IPID #### [facility] [address] [place] [place], [place] [address] SUE Flores MD URIC ACIDon 06-11-2020 Urate [Mass/Vol] 5.6 mg/dL Normal 3.5-8.5 [facility] Comment on above: Performed By: #### U R #### [facility] [address] [place] [address] SUE Flores MD Vital Signs Date Time Vital Sign Value Performing Clinician Faci lity 10-04-2024 21:13-0400 Reason For Taking VItal Signs DR ROBERT SCHMITZ MD [address] [place] [address] 10-04-2024 19:37-0400 Heart rate 71 /min DR ROBERT Walls [address] [place] [address] 10-04-2024 19:37-0400 Reason For Taking VItal Signs DR ROBERT SCHMITZ MD [address] [place] [address] 10-04-2024 19:37-0400 Respiratory rate 18 /min DR ROBERT Walls [address] [place] [address] 10-04-2024 19:14-0400 Heart rate 66 /min DR ROBERT Walls [address] [place] [address] 10-04-2024 19:14-0400 Blood Pressure Cuff Size DR ROBERT SCHMITZ MD [address] [place] [address] 10-04-2024 19:14-[address] ROBERT SCHMITZ MD [address] [place] [address] 10-04-2024 19:14-[address] ROBERT SCHMITZ MD [address] [place] [address] 10-04-2024 19:14-0400 Body temperature 97.7 [degF] DR ROBERT Walls [address] [place] [address] 10-04-2024 19:14-0400 Diastolic Blood Pressure Non-Invasive 90 mm[Hg] DR ROBERT CSHMITZ MD [address] [place] [address] 10-04-2024 19:14-0400 Reason For Taking VItal Signs DR ROBERT SCHMITZ MD [address] [place] [address] 10-04-2024 19:14-0400 Respiratory rate 16 /min DR ROBERT Walls [address] [place] [address] 10-04-2024 19:14-0400 Systolic Blood Pressure Non-Invasive 138 mm[Hg] DR ROBERT SCHMITZ MD [address] [place] [address] 10-04-2024 16:28-0400 Heart rate 72 /min DR ROBERT Walls [address] [place] [address] 10-04-2024 15:31-0400 Heart rate 72 /min DR ROBERT Walls [address] [place] [address] 10-04-2024 15:31-0400 Blood Pressure Cuff Size DR ROBERT SCHMITZ MD [address] [place] [address] 10-04-2024 15:31-[address] ROBERT SCHMITZ MD [address] [place] [address] 10-04-2024 15:31-[address] ROBERT SCHMITZ MD [address] [place] [address] 10-04-2024 15:31-0400 Body temperature 97.52 [degF] DR ROBERT Walls [address] [place] [address] 10-04-2024 15:31-0400 Diastolic Blood Pressure Non-Invasive 72 mm[Hg] DR ROBERT SCHMITZ MD [address] [place] [address] 10-04-2024 15:31-0400 Respiratory rate 16 /min DR ROBERT Walls [address] [place] [address] 10-04-2024 15:31-0400 Systolic Blood Pressure Non-Invasive 120 mm[Hg] DR ROBERT SCHMITZ MD [address] [place] [address] 10-04-2024 15:02-0400 Blood Pressure Cuff Size DR ROBERT SCHMITZ MD [address] [place] [address] 10-04-2024 15:02-[address] ROBERT SCHMITZ MD [address] [place] [address] 10-04-2024 15:02-[address] ROBERT SCHMITZ MD [address] [place] [address] 10-04-2024 15:02-0400 Body temperature 97.88 [degF] DR ROBERT Walls [address] [place] [address] 10-04-2024 15:02-0400 Diastolic Blood Pressure Non-Invasive 78 mm[Hg] DR ROBERT SCHMITZ MD [address] [place] [address] 10-04-2024 15:02-0400 Heart rate 73 /min DR ROBERT Walls [address] [place] [address] 10-04-2024 15:02-0400 Systolic Blood Pressure Non-Invasive 116 mm[Hg] DR ROBERT SCHMITZ MD [address] [place] [address] 10-04-2024 11:59-0400 Heart rate 61 /min DR ROBERT Walls [address] [place] [address] 10-04-2024 07:54-0400 Heart rate 66 /min DR ROBERT Walls [address] [place] [address] 10-04-2024 07:46-0400 Heart rate 64 /min DR ROBERT Walls [address] [place] [address] 10-03-2024 16:05-0400 Heart rate 74 /min DR ROBERT Walls [address] [place] [address] 10-02-2024 06:28-0400 Body height 177.[address] ROBERT Walls [address] [place] [address] 10-02-2024 06:28-0400 Body weight 140.[address] ROBERT Walls [facility] 10-02-2024 06:28-0400 Body weight 44.38 kg/m2 DR ROBERT Walls [facility] 10-02-2024 05:00-0400 Diastolic Blood Pressure Non-Invasive 68 mm[Hg] DELORES DURESKA DO [facility] 10-02-2024 05:00-0400 Heart rate 116 /min DELORES DURESKA DO [facility] 10-02-2024 05:00-0400 Systolic Blood Pressure Non-Invasive 108 mm[Hg] DELORES DURESKA DO [facility] 10-02-2024 04:00-0400 Diastolic Blood Pressure Non-Invasive 70 mm[Hg] DELORES DURESKA DO [facility] 10-02-2024 04:00-0400 Heart rate 125 /min DELORES DURESKA DO [facility] 10-02-2024 04:00-0400 Systolic Blood Pressure Non-Invasive 101 mm[Hg] DELORES DURESKA DO [facility] 10-02-2024 02:31-0400 Body weight 143 kg DELORES DURESKA DO [facility] 10-02-2024 02:15-0400 Diastolic Blood Pressure Non-Invasive 90 mm[Hg] DELORES DURESKA DO [facility] 10-02-2024 02:15-0400 Heart rate 120 /min DELORES DURESKA DO [facility] 10-02-2024 02:15-0400 Respiratory rate 18 /min DELORES DURESKA DO [facility] 10-02-2024 02:15-0400 Systolic Blood Pressure Non-Invasive 106 mm[Hg] DELORES MURO DO [facility] 10-02-2024 00:27-0400 Body temperature 98.06 [degF] DELORES MURO DO [facility] 02-01-2024 16:08-0400 Heart rate 72 /min CINDY HERNANDEZ MD [facility] 02-01-2024 15:25-0400 Heart rate 68 /min CINDY HERNANDEZ MD [facility] 02-01-2024 15:25-0400 Respiratory rate 18 /min CINDY HERNANDEZ MD [facility] 02-01-2024 14:44-0400 Body temperature 98.6 [degF] CINDY HERNANDEZ MD [facility] 02-01-2024 14:44-0400 Diastolic Blood Pressure Non-Invasive 82 mm[Hg] CINDY HERNANDEZ MD [facility] 02-01-2024 14:44-0400 Heart rate 72 /min CINDY HERNANDEZ MD [facility] 02-01-2024 14:44-0400 Respiratory rate 18 /min CINDY HERNANDEZ MD [facility] 02-01-2024 14:44-0400 Systolic Blood Pressure Non-Invasive 119 mm[Hg] CINDY HERNANDEZ MD [facility] 02-01-2024 11:12-0400 Body temperature 98.24 [degF] CINDY HERNANDEZ MD [facility] 02-01-2024 11:12-0400 Diastolic Blood Pressure Non-Invasive 72 mm[Hg] CINDY HERNANDEZ MD [facility] 02-01-2024 11:12-0400 Heart rate 82 /min CINDY HERNANDEZ MD [facility] 02-01-2024 11:12-0400 Reason For Taking VItal Signs CINDY HERNANDEZ MD [facility] 02-01-2024 11:12-0400 Respiratory rate 18 /min CINDY HERNANDEZ MD [facility] 02-01-2024 11:12-0400 Systolic Blood Pressure Non-Invasive 101 mm[Hg] CINDY HERNANDEZ MD [facility] 02-01-2024 09:16-0400 Heart rate 79 /min CINDY HERNANDEZ MD [facility] 02-01-2024 09:04-0400 Blood Pressure Cuff Size CINDY HERNANDEZ MD [facility] 02-01-2024 09:04-0400 Blood Pressure Location CINDY HERNANDEZ MD [facility] 02-01-2024 09:04-0400 Blood Pressure Method CINDY HERNANDEZ MD [facility] 02-01-2024 09:04-0400 Body temperature 98.96 [degF] CINDY HERNANDEZ MD [facility] 02-01-2024 09:04-0400 Diastolic Blood Pressure Non-Invasive 64 mm[Hg] CINDY HERNANDEZ MD [facility] 02-01-2024 09:04-0400 Heart rate 84 /min CINDY HERNANDEZ MD [facility] 02-01-2024 09:04-0400 Reason For Taking VItal Signs CINDY HERNANDEZ MD [facility] 02-01-2024 09:04-0400 Systolic Blood Pressure Non-Invasive 105 mm[Hg] CINDY HERNANDEZ MD [facility] 02-01-2024 07:04-0400 Heart rate 60 /min CINDY HERNANDEZ MD [facility] 02-01-2024 03:35-0400 Heart rate 80 /min CINDY HERNANDEZ MD [facility] 02-01-2024 03:35-0400 Mean blood pressure 73 mm[Hg] CINDY HERNANDEZ MD [facility] 02-01-2024 03:35-0400 Reason For Taking VItal Signs CINDY HERNANDEZ MD [facility] 01-31-2024 23:23-0400 Heart rate 84 /min CINDY HERNANDEZ MD [facility] 01-31-2024 23:23-0400 Mean blood pressure 74 mm[Hg] CINDY HERNANDEZ MD [facility] 01-31-2024 18:38-0400 Mean blood pressure 79 mm[Hg] CINDY HERNANDEZ MD [facility] 01-31-2024 02:56-0400 Body height 175 cm CINDY HERNANDEZ MD [facility] 01-31-2024 02:56-0400 Body weight 149.1 kg CINDY HERNANDEZ MD [facility] 01-31-2024 02:56-0400 Body weight 48.69 kg/m2 CINDY HERNANDEZ MD [facility] 01-31-2024 01:18-[address] SAMY JONES MD [facility] 01-31-2024 01:18-[address] SAMY JONES MD [facility] 01-31-2024 01:18-0400 Diastolic Blood Pressure Non-Invasive 71 mm[Hg] DR SAMY JONES MD [facility] 01-31-2024 01:18-0400 Heart rate 90 /min DR SAMY JONES MD [facility] 01-31-2024 01:18-0400 Mean blood pressure 82 mm[Hg] DR SAMY JONES MD [facility] 01-31-2024 01:18-0400 Reason For Taking VItal Signs DR SAMY JONES MD [facility] 01-31-2024 01:18-0400 Respiratory rate 18 /min DR SAMY JONES MD [facility] 01-31-2024 01:18-0400 Systolic Blood Pressure Non-Invasive 111 mm[Hg] DR SAMY JONES MD [facility] 01-31-2024 01:07-[address] SAMY JONES MD [facility] 01-31-2024 01:07-[address] SAMY JONES MD [facility] 01-31-2024 01:07-0400 Diastolic Blood Pressure Non-Invasive 61 mm[Hg] DR SAMY JONES MD [facility] 01-31-2024 01:07-0400 Heart rate 85 /min DR SAMY JONES MD [facility] 01-31-2024 01:07-0400 Mean blood pressure 71 mm[Hg] DR SAMY JONES MD [facility] 01-31-2024 01:07-0400 Reason For Taking VItal Signs DR SAMY JONES MD [facility] 01-31-2024 01:07-0400 Respiratory rate 12 /min DR SAMY JONES MD [facility] 01-31-2024 01:07-0400 Systolic Blood Pressure Non-Invasive 90 mm[Hg] DR SAMY JONES MD [facility] 01-31-2024 00:58-[address] SAMY JONES MD [facility] 01-31-2024 00:58-[address] SAMY JONES MD [facility] 01-31-2024 00:58-0400 Diastolic Blood Pressure Non-Invasive 64 mm[Hg] DR SAMY JONES MD [facility] 01-31-2024 00:58-0400 Heart rate 89 /min DR SAMY JONES MD [facility] 01-31-2024 00:58-0400 Mean blood pressure 76 mm[Hg] DR SAMY JONES MD [facility] 01-31-2024 00:58-0400 Reason For Taking VItal Signs DR SAMY JONES MD [facility] 01-31-2024 00:58-0400 Respiratory rate 13 /min DR SAMY JONES MD [facility] 01-31-2024 00:58-0400 Systolic Blood Pressure Non-Invasive 97 mm[Hg] DR SAMY JONES MD [facility] 01-30-2024 20:22-0400 SaO2% (BldA) [Mass fraction] 88.8 % DR SAMY JONES MD [facility] 01-30-2024 20:15-0400 Body height 175.[address] SAMY JONES MD [facility] 01-30-2024 20:15-0400 Body temperature 99.32 [degF] DR SAMY JONES MD [facility] 01-30-2024 20:15-0400 Body weight 145.[address] SAMY JONES MD [facility] 01-30-2024 20:15-0400 Heart rate 133 /min DR SAMY JONES MD [facility] 08-09-2023 21:07-0400 Blood Pressure Cuff Size DR OLLIE BROOKE MD [facility] 08-09-2023 21:07-[address] OLLIE BROOKE MD [facility] 08-09-2023 21:07-[address] OLLIE BROOKE MD [facility] 08-09-2023 21:07-0400 Body height 177.[address] OLLIE BROOKE MD [facility] 08-09-2023 21:07-0400 Body temperature 96.98 [degF] DR OLLIE BROOKE MD [facility] 08-09-2023 21:07-0400 Body weight 155.[address] OLLIE BROOKE MD [facility] 08-09-2023 21:07-0400 Diastolic Blood Pressure Non-Invasive 78 mm[Hg] DR OLLIE BROOKE MD [facility] 08-09-2023 21:07-0400 Heart rate 70 /min DR OLLIE BROOKE MD [facility] 08-09-2023 21:07-0400 Reason For Taking VItal Signs DR OLLIE BROOKE MD [facility] 08-09-2023 21:07-0400 Respiratory rate 22 /min DR OLLIE BROOKE MD [facility] 08-09-2023 21:07-0400 Systolic Blood Pressure Non-Invasive 121 mm[Hg] DR OLLIE BROOKE MD [facility] 06-13-2023 01:18-0500 Diastolic Blood Pressure Non-Invasive 78 mm[Hg] DEMI HUSTON MD [facility] 06-13-2023 01:18-0500 Heart rate 80 /min DEMI HUSTON MD [facility] 06-13-2023 01:18-0500 Respiratory rate 18 /min DEMI HUSOTN MD [facility] 06-13-2023 01:18-0500 Systolic Blood Pressure Non-Invasive 142 mm[Hg] DEMI HUSTON MD [facility] 06-13-2023 00:35-0500 Heart rate 74 /min DEMI HUSTON MD [facility] 06-13-2023 00:35-0500 Respiratory rate 20 /min DEMI HUSTON MD [facility] 06-13-2023 00:03-0500 Body temperature 97.7 [degF] DEMI HUSTON MD [facility] 06-13-2023 00:03-0500 Diastolic Blood Pressure Non-Invasive 84 mm[Hg] DEMI HUSTON MD [facility] 06-13-2023 00:03-0500 Heart rate 67 /min DEMI HUSTON MD [facility] 06-13-2023 00:03-0500 Respiratory rate 20 /min DEMI HUSTON MD [facility] 06-13-2023 00:03-0500 Systolic Blood Pressure Non-Invasive 153 mm[Hg] DEMI HUSTON MD [facility] 06-09-2023 21:35-0500 Heart rate 60 /min MOY WATTS MD [address] 06-09-2023 21:35-0500 Reason For Taking VItal Signs MOY WATTS MD [address] 06-09-2023 21:35-0500 Respiratory rate 18 /min MOY WATTS MD [address] 06-09-2023 19:40-0500 Blood Pressure Cuff Size MOY WATTS MD [address] 06-09-2023 19:40-0500 Blood Pressure Location MOY WATTS MD [address] [place] [address] 06-09-2023 19:40-0500 Blood Pressure Method MOY WATTS MD [address] 06-09-2023 19:40-0500 Body temperature 98.24 [degF] MOY WATTS MD [address] 06-09-2023 19:40-0500 Diastolic Blood Pressure Non-Invasive 66 mm[Hg] MOY WATTS MD [address] 06-09-2023 19:40-0500 Heart rate 63 /min MOY WATTS MD [address] [place] [address] 06-09-2023 19:40-0500 Reason For Taking VItal Signs MOY WATTS MD [address] [place] [address] 06-09-2023 19:40-0500 Respiratory rate 18 /min MOY WATTS MD [address] [place] [address] 06-09-2023 19:40-0500 Systolic Blood Pressure Non-Invasive 112 mm[Hg] MOY WATTS MD [address] [place] [address] 06-09-2023 19:29-0500 Heart rate 63 /min MOY WATTS MD [address] [place] [address] 06-09-2023 16:56-0500 Heart rate 66 /min MOY WATTS MD [address] [place] [address] 06-09-2023 16:04-0500 Blood Pressure Cuff Size MOY WATTS MD [address] [place] [address] 06-09-2023 16:04-0500 Blood Pressure Location MOY WATTS MD [address] [place] [address] 06-09-2023 16:04-0500 Blood Pressure Method MOY WATTS MD [address] [place] [address] 06-09-2023 16:04-0500 Body temperature 97.88 [degF] MOY WATTS MD [address] [place] [address] 06-09-2023 16:04-0500 Diastolic Blood Pressure Non-Invasive 78 mm[Hg] MOY WATTS MD [address] [place] [address] 06-09-2023 16:04-0500 Reason For Taking VItal Signs MOY WATTS MD [address] [place] [address] 06-09-2023 16:04-0500 Respiratory rate 18 /min MOY WATTS MD [address] [place] [address] 06-09-2023 16:04-0500 Systolic Blood Pressure Non-Invasive 138 mm[Hg] MOY WATTS MD [address] [place] [address] 06-09-2023 11:17-0500 Blood Pressure Cuff Size MOY WATTS MD [address] [place] [address] 06-09-2023 11:17-0500 Blood Pressure Location MOY WATTS MD [address] [place] [address] 06-09-2023 11:17-0500 Blood Pressure Method MOY WATTS MD [address] [place] [address] 06-09-2023 11:17-0500 Body temperature 97.88 [degF] MOY WATTS MD [address] [place] [address] 06-09-2023 11:17-0500 Diastolic Blood Pressure Non-Invasive 64 mm[Hg] MOY WATTS MD [address] [place] [address] 06-09-2023 11:17-0500 Systolic Blood Pressure Non-Invasive 126 mm[Hg] MOY WATTS MD [address] [place] [address] 06-09-2023 08:54-0500 Heart rate 66 /min MOY WATTS MD [address] [place] [address] 06-08-2023 23:49-0500 Mean blood pressure 77 mm[Hg] MOY WATTS MD [address] [place] [address] 06-08-2023 17:50-0500 Heart rate 65 /min MOY WATTS MD [address] [place] [address] 06-08-2023 14:06-0500 Heart rate 58 /min MOY WATTS MD [facility] 06-08-2023 07:05-0500 Mean blood pressure 90 mm[Hg] MOY WATTS MD [facility] 06-07-2023 13:36-0500 Body height 176 cm MOY WATTS MD [facility] 06-07-2023 13:36-0500 Body weight 152.9 kg MOY WATTS MD [facility] 06-07-2023 13:36-0500 Body weight 49.36 kg/m2 MOY WATTS MD [facility] 05-05-2023 20:50-0500 Diastolic Blood Pressure Non-Invasive 79 mm[Hg] DEMI HUSTON MD [facility] 05-05-2023 20:50-0500 Heart rate 84 /min DEMI HUSTON MD [facility] 05-05-2023 20:50-0500 Respiratory rate 20 /min DEMI HUSTON MD [facility] 05-05-2023 20:50-0500 Systolic Blood Pressure Non-Invasive 132 mm[Hg] DEMI HUSTON MD [facility] 05-05-2023 17:16-0500 Body height 175.3 cm DEMI HUSTON MD [facility] 05-05-2023 17:16-0500 Body temperature 97.88 [degF] DEMI HUSTON MD [facility] 05-05-2023 17:16-0500 Body weight 144.4 kg DEMI HUSTON MD [facility] 05-05-2023 17:16-0500 Diastolic Blood Pressure Non-Invasive 88 mm[Hg] DEMI HUSTON MD [facility] 05-05-2023 17:16-0500 Heart rate 68 /min DEMI HUSTON MD [facility] 05-05-2023 17:16-0500 Respiratory rate 20 /min DEMI HUTSON MD [facility] 05-05-2023 17:16-0500 Systolic Blood Pressure Non-Invasive 142 mm[Hg] DEMI HUSTON MD [facility] 02-12-2023 07:06-0400 Body height 175.26 cm [facility] 02-12-2023 07:06-0400 Body mass index (BMI) [Ratio] 49.5 kg/m2 [facility] 02-12-2023 07:06-0400 Body temperature 97.8 [degF] [facility] 02-12-2023 07:06-0400 Body weight 152.1 kg [facility] 02-12-2023 07:06-0400 Diastolic blood pressure 101 mm[Hg] [facility] 02-12-2023 07:06-0400 Heart rate 98 /min [facility] 02-12-2023 07:06-0400 Respiratory rate 16 /min [facility] 02-12-2023 07:06-0400 SaO2% (BldA) [Mass fraction] 95 % [facility] 02-12-2023 07:06-0400 Systolic blood pressure 132 mm[Hg] [facility] 12-23-2022 07:51-0400 Diastolic Blood Pressure Non-Invasive 68 1 MOY WATTS MD [facility] 12-23-2022 07:51-0400 Heart rate 61 /min MOY WATTS MD [facility] 12-23-2022 07:51-0400 Respiratory rate 12 /min MOY WATTS MD [facility] 12-23-2022 07:51-0400 Systolic Blood Pressure Non-Invasive 106 1 MOY WATTS MD [facility] 12-23-2022 07:39-0400 Diastolic Blood Pressure Non-Invasive 60 1 MOY WATTS MD [facility] 12-23-2022 07:39-0400 Heart rate 64 /min MOY WATTS MD [facility] 12-23-2022 07:39-0400 Respiratory rate 20 /min MOY WATTS MD [facility] 12-23-2022 07:39-0400 Systolic Blood Pressure Non-Invasive 97 1 MOY WATTS MD [facility] 12-23-2022 07:34-0400 Diastolic Blood Pressure Non-Invasive 59 1 MOY WATTS MD [facility] 12-23-2022 07:34-0400 Heart rate 62 /min MOY WATTS MD [facility] 12-23-2022 07:34-0400 Respiratory rate 16 /min MOY WATTS MD [facility] 12-23-2022 07:34-0400 Systolic Blood Pressure Non-Invasive 74 1 MOY WATTS MD [facility] 12-23-2022 07:24-0400 Body temperature 97.34 [degF] MOY WATTS MD [facility] 12-23-2022 07:20-0400 Heart rate 73 /min MOY WATTS MD [facility] 12-23-2022 07:20-0400 Respiratory Rate - Anes 22 br/min MOY WATTS MD [facility] 12-23-2022 07:15-0400 Heart rate 91 /min MOY WATTS MD [facility] 12-23-2022 07:15-0400 Respiratory Rate - Anes 18 br/min MOY WATTS MD [facility] 12-23-2022 06:37-0400 Body height 175.3 cm MOY WATTS MD [facility] 12-23-2022 06:34-0400 Body height 175.3 cm MOY WATTS MD [facility] 12-23-2022 06:34-0400 Body temperature 95.54 [degF] MOY WATTS MD [facility] 12-23-2022 06:34-0400 Body weight 144 kg MOY WATTS MD [facility] 10-27-2022 06:49-0400 Body temperature 97.7 [degF] DR OLLIE BROOKE MD [facility] 06-01-2023 06:49-0400 Diastolic Blood Pressure Non-Invasive [address] OLLIE BROOKE MD [facility] 10-27-2022 06:49-0400 Heart rate 103 /min DR OLLIE BROOKE MD [facility] 10-27-2022 06:49-0400 Respiratory rate 22 /min DR OLLIE BROOKE MD [facility] 10-27-2022 06:49-0400 Systolic Blood Pressure Non-Invasive [address] OLLIE BROOKE MD [facility] 10-27-2022 06:14-0400 Body temperature 98.06 [degF] DR OLLIE BROOKE MD [facility] 10-27-2022 06:14-0400 Diastolic Blood Pressure Non-Invasive [address] OLLIE BROOKE MD [facility] 10-27-2022 06:14-0400 Heart rate 105 /min DR OLLIE BROOKE MD [facility] 10-27-2022 06:14-0400 Respiratory rate 22 /min DR OLLIE BROOKE MD [facility] 10-27-2022 06:14-0400 Systolic Blood Pressure Non-Invasive [address] OLLIE BROOKE MD [facility] 10-27-2022 05:05-0400 Body height 175.[address] OLLIE BROOKE MD [facility] 10-27-2022 05:05-0400 Body temperature 98.06 [degF] DR OLLIE BROOKE MD [facility] 10-27-2022 05:05-0400 Body weight [address] OLLIE BROOKE MD [facility] 10-27-2022 05:05-0400 Diastolic Blood Pressure Non-Invasive [address] OLLIE BROOKE MD [facility] 10-27-2022 05:05-0400 Heart rate 88 /min DR OLLIE BROOKE MD [facility] 10-27-2022 05:05-0400 Respiratory rate 22 /min DR OLLIE BROOKE MD [facility] 10-27-2022 05:05-0400 Systolic Blood Pressure Non-Invasive [address] OLLIE BROOKE MD [facility] 10-25-2022 01:00-0400 Heart rate 99 /min DEMI HUSTON MD [facility] 10-25-2022 01:00-0400 Systolic Blood Pressure Non-Invasive 139 1 DEMI HUSTON MD [facility] 10-25-2022 00:00-0400 Diastolic Blood Pressure Non-Invasive 94 1 DEMI HUSTON MD [facility] 10-25-2022 00:00-0400 Heart rate 102 /min DEMI HUSTON MD [facility] 10-25-2022 00:00-0400 Respiratory rate 18 /min DEMI HUSTON MD [facility] 10-25-2022 00:00-0400 Systolic Blood Pressure Non-Invasive 132 1 DEMI HUSTON MD [facility] 10-24-2022 23:21-0400 Body height 175.3 cm DEMI HUSTON MD [facility] 10-24-2022 23:21-0400 Body temperature 98.24 [degF] DEMI HUSTON MD [facility] 10-24-2022 23:21-0400 Body weight 139 kg DEMI HUSTON MD [facility] 10-24-2022 23:21-0400 Diastolic Blood Pressure Non-Invasive 99 1 DEMI HUSTON MD [facility] 10-24-2022 23:21-0400 Heart rate 105 /min DEMI HUSTON MD [facility] 10-24-2022 23:21-0400 Respiratory rate 19 /min DEMI HUSTON MD [facility] 10-24-2022 23:21-0400 Systolic Blood Pressure Non-Invasive 146 1 DEMI HUSTON MD [facility] 10-23-2022 10:51-0400 Diastolic blood pressure 76 mm[Hg] [facility] 10-23-2022 10:51-0400 Heart rate 73 /min [facility] 10-23-2022 10:51-0400 Respiratory rate 15 /min [facility] 10-23-2022 10:51-0400 SaO2% (BldA) [Mass fraction] 98 % [facility] 10-23-2022 10:51-0400 Systolic blood pressure 148 mm[Hg] [facility] 10-23-2022 05:58-0400 Body height 175.26 cm [facility] 10-23-2022 05:58-0400 Body mass index (BMI) [Ratio] 47.7 kg/m2 [facility] 10-23-2022 05:58-0400 Body temperature 97.6 [degF] [facility] 10-23-2022 05:58-0400 Body weight 146.8 kg [facility] 07-15-2022 21:40-0500 Diastolic Blood Pressure Non-Invasive 85 1 JEREMIE MCCORMACK MD [facility] 07-15-2022 21:40-0500 Heart rate 72 /min JEREMIE MCCORMACK MD [facility] 07-15-2022 21:40-0500 Respiratory rate 18 /min JEREMIE MCCORMACK MD [facility] 07-15-2022 21:40-0500 Systolic Blood Pressure Non-Invasive 148 1 JEREMIE MCCORMACK MD [facility] 07-15-2022 21:10-0500 Reason For Taking VItal Signs JEREMIE MCCORMACK MD [facility] 07-15-2022 20:42-0500 Body temperature 98.06 [degF] JEREMIE MCCORMACK MD [facility] 07-15-2022 20:42-0500 Diastolic Blood Pressure Non-Invasive 95 1 JEREMIE MCCORMACK MD [facility] 07-15-2022 20:42-0500 Heart rate 81 /min JEREMIE MCCORMACK MD [facility] 07-15-2022 20:42-0500 Respiratory rate 18 /min JEREMIE MCCORMACK MD [facility] 07-15-2022 20:42-0500 Systolic Blood Pressure Non-Invasive 149 1 JEREMIE MCCORMACK MD [facility] 07-11-2022 08:21-0500 Body height 175.3 cm MALORIE PEGUERO MD [facility] 07-11-2022 08:21-0500 Body temperature 97.7 [degF] MALORIE PEGUERO MD [facility] 07-11-2022 08:21-0500 Body weight 148.6 kg MALORIE PEGUERO MD [facility] 07-11-2022 08:21-0500 Diastolic Blood Pressure Non-Invasive 80 1 MALORIE PEGUERO MD [facility] 07-11-2022 08:21-0500 Heart rate 88 /min MALORIE PEGUERO MD [facility] 07-11-2022 08:21-0500 Respiratory rate 24 /min MALORIE PEGUERO MD [facility] 07-11-2022 08:21-0500 Systolic Blood Pressure Non-Invasive 150 1 MALORIE PEGUERO MD [facility] Encounters Encounter Date Encounter Type Care Provider Facility Start: 11-04-2024 ambulatory Isadora Correa SECURITY AGENT Facil ity:[facility] Start: 10-30-2024 ambulatory Isadora Correa SECURITY AGENT Facil ity:[facility] Start: 10-28-2024 ambulatory Isadora Correa SECURITY AGENT Facil ity:[facility] Start: 10-24-2024 ambulatory Dolly Nathanesperanza [place] Facili ty:[facility] Start: 10-16-2024 End: 10-23-2024 Evaluation and management of inpatient NANI QUINTANA DO [facility] Start: 10-16-2024 End: 10-16-2024 Emergency department patient visit JAKE MAXWELL [facility] Start: 10-02-2024 End: 10-04-2024 Evaluation and management of inpatient DR ROBERT SCHMITZ MD [facility] Start: 10-02-2024 End: 10-02-2024 Emergency department patient visit DELORES MURO DO [facility] Start: 09-05-2024 ambulatory ISADORA CORREA WATER/WASTEWATER PROJECT MANAGER-ASSISTANT CONTROLLER Facility:[facility] Start: 08-29-2024 End: 08-29-2024 Emergency department patient visit CIRILO AMANDA Facility:[facility] Start: 08-27-2024 End: 08-27-2024 ambulatory ISADORA CORREA WATER/WASTEWATER PROJECT MANAGER-ASSISTANT CONTROLLER Facility:[facility] Start: 08-13-2024 End: 08-13-2024 Emergency department patient visit DR WILNER JOE MD Facility:[facility] Start: 05-14-2024 End: 05-14-2024 ambulatory ISADORA CORREA WATER/WASTEWATER PROJECT MANAGER-ASSISTANT CONTROLLER Facility:[facility] Start: 05-14-2024 End: 05-14-2024 Patient encounter procedure ISADORA CORREA WATER/WASTEWATER PROJECT MANAGER-ASSISTANT CONTROLLER [facility] Start: 03-25-2024 ambulatory ISADORA CORREA WATER/WASTEWATER PROJECT MANAGER-ASSISTANT CONTROLLER Facility:[facility] Start: 03-25-2024 End: 03-29-2024 ambulatory HELEN YANES WATER/WASTEWATER PROJECT MANAGER-ASSISTANT CONTROLLER Facility:[facility] Start: 03-25-2024 End: 03-29-2024 Outreach Lab HELEN YANES WATER/WASTEWATER PROJECT MANAGER-ASSISTANT CONTROLLER [facility] Start: 02-16-2024 End: 02-16-2024 ambulatory ISADORA CORREA WATER/WASTEWATER PROJECT MANAGER-ASSISTANT CONTROLLER Facility:[facility] Start: 02-16-2024 End: 02-16-2024 Patient encounter procedure ISADORA CORREA WATER/WASTEWATER PROJECT MANAGER-ASSISTANT CONTROLLER [facility] Start: 02-12-2024 End: 02-12-2024 ambulatory ISADORA CORREA WATER/WASTEWATER PROJECT MANAGER-ASSISTANT CONTROLLER Facility:[facility] Start: 02-12-2024 End: 02-12-2024 Patient encounter procedure ISADORA CORREA WATER/WASTEWATER PROJECT MANAGER-ASSISTANT CONTROLLER [facility] Start: 01-31-2024 End: 02-01-2024 Evaluation and management of inpatient ISADORA CORREA Facility:[facility] Start: 01-30-2024 End: 01-31-2024 Emergency department patient visit DR SAMY JONES MD [facility] Start: 10-11-2023 End: 10-11-2023 ambulatory [facility] Start: 08-22-2023 End: 08-22-2023 ambulatory ISADORADANE CORREA Facility:[facility] Start: 08-22-2023 End: 08-22-2023 Patient encounter procedure ISADORA CORREA WATER/WASTEWATER PROJECT MANAGER-ASSISTANT CONTROLLER [facility] Start: 08-09-2023 End: 08-09-2023 Emergency department patient visit DR OLLIE BROOKE MD [facility] Start: 08-08-2023 End: 08-12-2023 ambulatory ISADORA CORREA Facility:[facility] Start: 08-08-2023 End: 08-12-2023 Outreach Lab ISADORA CORREA WATER/WASTEWATER PROJECT MANAGER-ASSISTANT CONTROLLER [facility] Start: 08-08-2023 End: 08-08-2023 ambulatory ISADORADANE CORREA Facility:[facility] Start: 06-13-2023 End: 06-13-2023 Emergency department patient visit DEMI HUSTON MD [facility] Start: 06-07-2023 End: 06-09-2023 Evaluation and management of inpatient MOY WATTS MD [facility] Start: 05-05-2023 End: 05-05-2023 Emergency department patient visit DEMI UHSTON MD [facility] Start: 05-03-2023 ambulatory JAD Coombs Facility:[facility] Start: 04-03-2023 End: 04-03-2023 ambulatory ISADORA CORREA Facility:[facility] Start: 04-03-2023 End: 04-03-2023 Patient encounter procedure JONNY DARIANAJOANNAEMELYN WATER/WASTEWATER PROJECT MANAGER-ASSISTANT CONTROLLER [facility] Start: 03-22-2023 End: 03-22-2023 ambulatory ISADORA CORREA Facility:[facility] Start: 03-14-2023 ambulatory ISADORA CORREA Facility :[facility] Start: 02-22-2023 [facility] Start: 02-12-2023 End: 02-12-2023 Emergency department patient visit [facility] Work Phone: Start: 02-01-2023 End: 02-01-2023 Patient encounter procedure ISADORA CORREA WATER/WASTEWATER PROJECT MANAGER-ASSISTANT CONTROLLER [facility] Start: 12-23-2022 End: 12-23-2022 Minor Procedure MOY WATTS MD [facility] Start: 11-11-2022 End: 11-11-2022 Patient encounter procedure MOY WATTS MD [facility] Start: 10-27-2022 End: 10-27-2022 Emergency department patient visit DR OLLIE BROOKE MD [facility] Start: 10-24-2022 End: 10-25-2022 Emergency department patient visit DEMI HUSTON MD [facility] Start: 10-23-2022 End: 10-23-2022 Emergency department patient visit [facility] Start: 07-15-2022 End: 07-15-2022 Emergency department patient visit JEREMIE MCCORMACK MD [facility] Start: 07-11-2022 End: 07-11-2022 Emergency department patient visit MALORIE PEGUERO MD [facility] Start: 07-05-2022 End: 07-05-2022 ambulatory [facility] Start: 04-12-2022 End: 04-12-2022 ambulatory [facility] Start: 03-11-2022 [facility] Start: 01-12-2022 End: 01-12-2022 ambulatory [facility] Start: 08-24-2021 [facility] Start: 08-17-2021 End: 08-18-2021 ambulatory [facility] Start: 08-02-2021 [facility]ulatory [facility] Procedures Date Procedure Procedure Detail Performing Clinician Start: 03-25-2024 Excision HELEN BALDERAS WATER/WASTEWATER PROJECT MANAGER-ASSISTANT CONTROLLER Comment on above: excision of multilob ulated lipomatous mass right forearm Start: 01-31-2024 Echocardiography CHUN Anali SUNNY WATER/WASTEWATER PROJECT MANAGER-ASSISTANT CONTROLLER Start: 02-12-2023 SARS-CoV-2 & FLU Ant igen (Rapid) Start: 02-12-2023 Viral antigen assay Start: 02-12-2023 Plain chest X-ray Start: 12-23-2022 Cardioversion JAD WATTS MD Start: 11-11-2022 Echocardiography JONNY HOFF WATER/WASTEWATER PROJECT MANAGER-ASSISTANT CONTROLLER Comment on above: 1. Left ventricle: T [...] Date Care Activity Detail Author Start: 10-23-2022 [facility] Patient Education [facility] Work Phone: Patient referral [facility] Work Phone: Immunizations Immunization Date Immunization Notes Care Provider Fa delilah 04-12-2022 influenza virus vaccine, unspecified formulation MOY WATTS MD [facility] Comment on above: Result Comment: 2023: VIS DATE: 01/01/2021 04-12-2022 pneumococcal conjugate vaccine, 13 valent MOY WATTS MD [facility] Comment on above: Result Comment: 2023: VIS DATE: 07/02/2021 09-11-2020 SARS-CoV-2 (COVID-19 ) mRNA-1273 vaccine MOY WATTS MD [facility] 08-14-2020 SARS-CoV-2 (COVID-19 ) mRNA-1273 vaccine MOY WATTS MD [facility] Payers Date Payer Category Payer Self-pay 2024 Medicaid [id number] 2024 Private Health Insurance 5e [id number] 2023 Medicaid [id number] 1971 Unknown [id number] 2.16.8 40.1.644388.3.579.2.1076 1971 Unknown [id number] 2.16. 840.1.155725.3.579.2.297 1971 Unknown [id number] 2.16.8 40.1.983636.3.579.2.627 1971 Unknown [id number] 2.16.8 40.1.100796.3.579.2.627 1971 Unknown [id number] 2.16.8 40.1.902984.3.579.2.627 1971 Unknown [id number] 2.16.8 40.1.858670.3.579.2.7 1971 Unknown [id number] 2.16.8 40.1.744971.3.579.2.7 1971 Unknown [id number] 2.16.8 40.1.226162.3.579.2.7 1971 Unknown [id number] 2.16.8 40.1.213620.3.579.2.7 1971 Unknown [id number] 2.16.8 40.1.335646.3.579.2.7 1971 Unknown [id number] 2.16.8 40.1.176569.3.579.2.627 1971 Unknown [id number] 2.16.8 40.1.282067.3.579.2.627 1971 Unknown [id number] 2.16.8 40.1.095004.3.579.2.7 1971 Unknown [id number] 2.16.8 40.1.669444.3.579.2.7 1971 Unknown [id number] 2.16.8 40.1.306013.3.579.2.627 1971 Unknown [id number] 2.16.8 40.1.101344.3.579.2.627 1971 Unknown [id number] 2.16.8 40.1.739807.3.579.2.627 1971 Unknown [id number] 2.16.8 40.1.846696.3.579.2.627 1971 Unknown [id number] 2.16.8 40.1.959950.3.579.2.627 1971 Unknown [id number] 2.16.8 40.1.237522.3.579.2.7 1971 Unknown [id number] 2.16.8 40.1.430797.3.579.2. 1971 Unknown [id number] 2.16.8 40.1.975225.3.579.2.7 1971 Unknown [id number] 2.16.8 40.1.868604.3.579.2. 1971 Unknown [id number] 2.16.8 40.1.109725.3.579.2.7 1971 Unknown [id number] 2.16.8 40.1.439157.3.579.2.7 1971 Unknown [id number] 2.16.8 40.1.938570.3.579.2.7 1971 Unknown [id number] 2.16.8 40.1.201934.3.579.2.627 1971 Unknown [id number] 2.16.8 40.1.821364.3.579.2.651 1971 Unknown [id number] 2.16. 840.1.163871.3.579.2.627 1971 Unknown [id number] 2.16.8 40.1.129921.3.579.2.627 1971 Unknown [id number] 2.16.8 40.1.238263.3.579.2.627 Unknown [id number] Unknown [id number] 2.16.8 40.1.872237.3.579.2.443 Unknown [id number] 2.16.8 40.1.883949.3.579.2.462 Unknown [id number] 2.16.8 40.1.996645.3.579.2.462 Unknown [id number] 2.16.8 40.1.783070.3.579.2.462 Unknown [id number] 2.16.8 40.1.720251.3.579.2.462 Social History Date Type Detail Facility Start: 07-11-2022 End: 01-12-2024 Tobacco smoking status Ex-smoker (finding) [facility] Start: 1970 Sex Assigned At Male A [facility] Start: 10-23-2022 End: 02-12-2023 Tobacco smoking status [facility] Unknown if ever smoked [facility] Tobacco Nicotine Use: sn uff. Type: Oral (Snuff, Chew). [facility] Comment on above: using NicoDerm patch Stopped chewing snuf f October [address] [facility] Start: 06-07-2023 End: 08-08-2023 Tobacco smoking status Former smokeless tobacco user, quit more than 30 days ago [facility] Start: 07-11-2022 Sex Male (finding) [facility] Medical Equipment Procedure Code Equipment Code Equipment Origin al Text Equipment Identifier Dates See Instructions , 1 bottle of 100 Test once daily, # 1 EA, 11 Refill(s), Pharmacy: [facility], 177.8, cm, 11/28/23 13:54:00 EDT, Height, 151.4, kg, 11/28/23 13:54:00 EDT, Dosing Weight Start: 12-12-2023 See Instructions , qs 1 month supply Test once daily, # 1 EA, 11 Refill(s), Pharmacy: [facility], 177.8, cm, 11/28/23 13:54:00 EDT, Height, 151.4, kg, 11/28/23 13:54:00 EDT, Dosing Weight Start: 12-12-2023 See Instructions , 1 bottle of 100 Test once daily, # 1 EA, 11 Refill(s), Pharmacy: [facility], 177.8, cm, 11/28/23 13:54:00 EDT, Height, 151.4, kg, 11/28/23 13:54:00 EDT, Dosing Weight Start: 12-12-2023 See Instructions , qs 1 month supply Test once daily, # 1 EA, 11 Refill(s), Pharmacy: [facility], 177.8, cm, 11/28/23 13:54:00 EDT, Height, 151.4, kg, 11/28/23 13:54:00 EDT, Dosing Weight Start: 12-12-2023 See Instructions , 1 bottle of 100 Test once daily, # 1 EA, 11 Refill(s), Pharmacy: [facility], 177.8, cm, 11/28/23 13:54:00 EDT, Height, 151.4, kg, 11/28/23 13:54:00 EDT, Dosing Weight Start: 12-12-2023 See Instructions , qs 1 month supply Test once daily, # 1 EA, 11 Refill(s), Pharmacy: [facility], 177.8, cm, 11/28/23 13:54:00 EDT, Height, 151.4, kg, 11/28/23 13:54:00 EDT, Dosing Weight Start: 12-12-2023 See Instructions , 1 bottle of 100 Test once daily, # 1 EA, 11 Refill(s), Pharmacy: [facility], 177.8, cm, 11/28/23 13:54:00 EDT, Height, 151.4, kg, 11/28/23 13:54:00 EDT, Dosing Weight Start: 12-12-2023 See Instructions , qs 1 month supply Test once daily, # 1 EA, 11 Refill(s), Pharmacy: [facility], 177.8, cm, 11/28/23 13:54:00 EDT, Height, 151.4, kg, 11/28/23 13:54:00 EDT, Dosing Weight Start: 12-12-2023 See Instructions , 1 bottle of 100 Test once daily, # 1 EA, 11 Refill(s), Pharmacy: [facility], 177.8, cm, 11/28/23 13:54:00 EDT, Height, 151.4, kg, 11/28/23 13:54:00 EDT, Dosing Weight Start: 12-12-2023 See Instructions , qs 1 month supply Test once daily, # 1 EA, 11 Refill(s), Pharmacy: [facility], 177.8, cm, 11/28/23 13:54:00 EDT, Height, 151.4, kg, 11/28/23 13:54:00 EDT, Dosing Weight Start: 12-12-2023 See Instructions , 1 bottle of 100 Test once daily, # 1 EA, 11 Refill(s), Pharmacy: [facility], 177.8, cm, 11/28/23 13:54:00 EDT, Height, 151.4, kg, 11/28/23 13:54:00 EDT, Dosing Weight Start: 12-12-2023 See Instructions , qs 1 month supply Test once daily, # 1 EA, 11 Refill(s), Pharmacy: [facility], 177.8, cm, 11/28/23 13:54:00 EDT, Height, 151.4, kg, 11/28/23 13:54:00 EDT, Dosing Weight Start: 12-12-2023 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 [employer] L Unknown 10/17/24 Unknown Unknown FDA Start: 10-17-2024 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 [employer] Unknown 10/17/24 Unknown Unknown FDA Start: 10-17-2024 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 [employer] Unknown 10/17/24 Unknown Unknown FDA Start: 10-17-2024 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 [employer] L Unknown 10/17/24 Unknown Unknown FDA Start: 10-17-2024 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 [employer] L Unknown 10/17/24 Unknown Unknown FDA Start: 10-17-2024 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 [employer] L Unknown 10/17/24 Unknown Unknown FDA Start: 10-17-2024 Functional Status Date Assessment Result Facility 10-04-2024 Functional Status Room located n ear nursing station, Door open, Bathroom light on, Non-Slip footwear, Room check performed [facility] 10-04-2024 Functional Status [facility] 10-04-2024 Functional Status [facility] 10-04-2024 Functional Status Breakfast Percent 80 [facility] 10-04-2024 Functional Status [facility] 10-03-2024 [facility] Functional Status Sequential Com pression Device bilateral knee high removed/off [facility] 10-02-2024 Functional Status ID band on, Call device within reach, Bed in low position [facility] 02-01-2024 Functional Status Room check performed [facility] 02-01-2024 Functional Status [facility] 02-01-2024 Functional Status [facility] 02-01-2024 Functional Status Maintained [facility] 01-31-2024 Functional Status [facility] 01-31-2024 Functional Status 7pm-7am [facility] 01-31-2024 Functional Status Living Situati on Lives with family [facility] 01-31-2024 Functional Status Skin Care Prev entative Intervention(s) heel(s)s elevated, padded oxygen tubing, turn and position system [facility] 01-31-2024 Functional Status [facility] 01-31-2024 Functional Status Independent [facility] 01-30-2024 Functional Status Standard Safet y ID band on, Call device within reach, Bed in low position, Wheels locked, Upper/Half-Length side-rails up, personal items within reach, Bedside Cart Locked, Visitor at bedside [facility] 08-09-2023 Functional Status Awake, Resting [facility] 06-13-2023 Functional Status ID band on, Call device within reach [facility] 06-09-2023 Functional Status Room check performed [facility] 06-09-2023 Functional Status [facility] 06-09-2023 Functional Status [facility] 06-09-2023 Functional Status [facility] 06-08-2023 Functional Status Home independe ntly, Lives with significant other [facility] 06-08-2023 Functional Status Skin Care Prev entative Intervention(s) padded oxygen tubing [facility] 06-08-2023 Functional Status bilateral knee high removed/off [facility] 06-07-2023 Functional Status Sensory Deficits None A [facility] 05-05-2023 Functional Status Assistive Device None [facility] 05-05-2023 Functional Status Standard Safet y ID band on, Call device within reach, Bed in low position, Wheels locked, Visitor at bedside [facility] 12-23-2022 Functional Status Ambulating in room, Awake [facility] 12-23-2022 Functional Status Maintained [facility] 10-27-2022 Functional Status Room check performed [facility] 10-27-2022 Functional Status [facility] 10-25-2022 Functional Status Independent [facility] 10-24-2022 Functional Status Standard Safet y ID band on, Call device within reach, Bed in low position, Wheels locked, Upper/Half-Length side-rails up, personal items within reach, Visitor at bedside [facility] 07-15-2022 Functional Status Room check performed [facility] 07-11-2022 Functional Status Up ad traci [facility] Mental Status Date Assessment Result Facility 10-04-2024 Mental Status Oriented x 4 [facility] 10-04-2024 Mental Status [facility] 10-04-2024 Mental Status [facility] 10-02-2024 Mental Status Orientation Oriented x 4 [facility] 02-01-2024 Mental Status Orientation Oriented x 4 [facility] 02-01-2024 Mental Status [facility] 01-31-2024 Mental Status [facility] 01-31-2024 Mental Status [facility] 01-30-2024 Mental Status Orientation Oriented x 4 [facility] 08-09-2023 Mental Status Oriented x 4 [facility] 06-13-2023 Mental Status Orientation Oriented x 4 [facility] 06-09-2023 Mental Status Oriented x 4 [facility] 06-09-2023 Mental Status [facility] 06-09-2023 Mental Status [facility] 06-08-2023 Mental Status [facility] 05-05-2023 Mental Status Orientation Oriented x 4 [facility] 05-05-2023 Mental Status [facility] 12-23-2022 Mental Status Oriented x 4 [facility] 10-27-2022 Mental Status Orientation Oriented x 4 [facility] 10-27-2022 Mental Status [facility] 10-25-2022 Mental Status Orientation Oriented x 4 [facility] 10-24-2022 Mental Status [facility] 10-23-2022 Cognitive function Voice/Name [facility] Work Phone: 07-15-2022 Mental Status Oriented x 4 [facility] 07-11-2022 Mental Status Oriented x 4 [facility] Clinical Notes 02-07-2022 to 10-23-2024 [...] your health care provider approves. Standard walker 1.header up your walker. Do not slide your standard [...] 05/15/2006 Document Revised: 04/10/2019 Document Reviewed: 04/10/2019 [email or web address] Patient Education 2020 [email or web address] 10/23/2024 17:07:24 How to Care for [...] with a waterproof covering. General instructions Take cbnb-bfg-wckwima and prescription medicines only as told by [...] 01/25/2012 Document Revised: 07/12/2019 Document Reviewed: 07/15/2019 [email or web address] Patient Education 2020 [employer]. Follow Up Care 10/16/2024 16:12:44 With:[facility], donato, Address:Unknown When:1-2 days With:ISADORA CORREA Address: [address] [place] [address]- [phone] Business (1) When:1-2 days With:NANI QUINTANA DO, Orthopedic Address: [address], [place] [address]- [phone] When:3-7 days Comments:Please call office SARA to confirm/verify follow up appointment. [facility] 10-23-2024 Note Discharge Instructions Thank you for allowing [facility] to assist you with your healthcare needs. The following is important discharge information regarding your hospital visit. Your Care Team ISADORA CORREA Your Diagnosis Closed displaced bimalleolar fracture of right ankle Post-op pain Shortness of breath What to do next Scheduled Follow-Up Appointments Appointment Type When With Where Contact Information StatusCV OV Hospital Follow Up 11/08/2024 02:30 PM EDT EDY WEBER [facility] Edy [facility] Confirmed PC OV 11/12/2024 03:30 PM EDT ISADORA CORREA [facility] Confirmed Follow [facility]:Within 1-2 days Follow Up with ISADORA CORREA When:Within 1-2 days Where:[address] [facility] [place] [address]- [phone] Business (1) Follow Up with NANI QUINTANA DO, Orthopedic When:Within 3-7 days Where:[address], [place] [address]- [phone] Additional Information: Please call office SARA to [...] Post-op pain Duration: 7 Days Pickup at [facility]/pharmacy #[id number] Unchanged albuterol (albuterol 2.5 mg/ 3 mL [...] by mouth Daily at bedtime Pharmacy Information [facility]/pharmacy #[id number]: [address], [place] [phone] Please take this list to your next [...] may report side effects to FDA at [phone]-NXV-1259. What other drugs will affect acetaminophen and [...] affect acetaminophen and oxycodone, including prescription and dvnk-zmb-aajtehp medicines, vitamins, and herbal products. Not all [...] to ensure that the information provided by [employer]. ('[employer]') is accurate, up-to-date, and complete, but no guarantee is made to that effect. Drug information contained herein may be time sensitive. [employer] information has been compiled for use by healthcare practitioners and consumers in the [place] and therefore [employer] does not warrant that uses outside of the [place] are appropriate, unless specifically indicated otherwise. [employer] drug information does not endorse drugs, diagnose patients or recommend therapy. [employer] drug information is an informational resource designed [...] effective or appropriate for any given patient. [employer] does not assume any responsibility for any aspect of healthcare administered with the aid of information [employer] provides. The information contained herein is not intended to cover all possible uses, directions, precautions, warnings, drug interactions, allergic reactions, or adverse effects. If you have questions about the drugs you are taking, check with your doctor, nurse or pharmacist. Copyright 4252-8626 [employer]. Version: 22.01. Revision Date: 12/29/2022. Education Materials [...] health care provider approves. Standard walker 1. header up your walker. Do not slide your standard [...] 05/15/2006 Document Revised: 04/10/2019 Document Reviewed: 04/10/2019 [email or web address] Patient Education 2020 [email or web address] Inc. How to Care for an External [...] with a waterproof covering. General instructions Take tkxd-dyc-sczulot and prescription medicines only as told by [...] 01/25/2012 Document Revised: 07/12/2019 Document Reviewed: 07/15/2019 [email or web address] Patient Education 2020 [employer]. Additional Information VACCINATE! IT SAVES LIVES! Members of the community who have not yet received the COVID-19 vaccine and would like to receive it can visit one of [facility] vaccine clinics. There are many vaccine clinic locations within the [facility]. For locations and available times, please visit [email or web address] [email or web address]/. It is important to note that some COVID mobile vaccine clinics are held outdoors and may be canceled in rainy or stormy conditions. To learn more about pediatric vaccinations (ages 5-11), we invite you to visit the [facility] webpage. https://www.[email or web address].org/p ages/8387-Mmnqd-Alqzkundlwx-Freq [email or web address]-Ydyqxaith.html To learn more about the COVID-19 vaccine, we invite you to visit the CDC website for a list of frequently asked questions.https://www.cdc.gov/co ronavirus/2019-ncov/vaccines/faq .html [employer] Patient Portal Access Instructions: Stay connected with your healthcare team and access your personal medical information anytime with the [employer] Patient Portal. Please follow the directions below to create your [employer] account: 1.Access the email account you provided upon registration to the hospital/physician office.2.Look for an invitation email from [facility].3.Open the email and access the invitation link: Accept Invitation to [facility].4.Fill in the required orr to create your account. To access your account, visit [email or web address]. Click the blue button labeled Access Patient [...] you will allow to register on the [facility] Patient Portal for access to your information. You can also access the [facility] Patient Portal on the [facility] frida. Simply click on Patient Portal and then log into your account. If you would like to receive a full copy of your medical records, please contact the [facility] Medical Records Department by calling [phone], Monday through Monday between 8 a.m. and [...] Call your local pharmacy or go to http://bit.Pure Storage/1O9Dy4x to find one close to you.3.Make use of household items: Use cat litter or old coffee grounds to dispose medications if other options are not available. Mix your drugs with these household products, seal them in an airtight container and throw it into the garbage. Call [facility]: [phone] to be sure your drugs can be [...] aware that I should contact my doctor. Patient/Therapist'S Assistant Signature: Date/Time: Relationship to Patient: Witness Name/Signature: Date/Time: [facility] 10-23-2024 Note Discharge Instructions Thank you for allowing [facility] to assist you with your healthcare needs. The following is important discharge information regarding your hospital visit. Your Care Team ISADORA CORREA Your Diagnosis Closed displaced bimalleolar fracture of right ankle Post-op pain Shortness of breath What to do next Scheduled Follow-Up Appointments Appointment Type When With Where Contact Information StatusCV OV Hospital Follow Up 11/08/2024 02:30 PM EDT EDY WEBER [facility] Edy [facility] Confirmed PC OV 11/12/2024 03:30 PM EDT ISADORA CORREA [facility] Confirmed Follow Up Appointments Follow Up with [facility], skilled, When:Within 1-2 days Follow Up with ISADORA CORREA When:Within 1-2 days Where:[address] [place] [address]- [phone] Business (1) Follow Up with NANI QUINTANA DO, Orthopedic When:Within 3-7 days Where:[address], [place] [address]- [phone] Additional Information: Please call office SARA to [...] Post-op pain Duration: 7 Days Pickup at [facility]/pharmacy #[id number] Unchanged albuterol (albuterol 2.5 mg/ 3 mL [...] by mouth Daily at bedtime Pharmacy Information [facility]/pharmacy #[id number]: [address], [place] [phone] Please take this list to your next [...] to receive it can visit one of [facility] vaccine clinics. There are many vaccine clinic locations within the [facility]. For locations and available times, please visit [email or web address] [email or web address] It is important to note that some COVID mobile vaccine clinics are held outdoors and may be canceled in rainy or stormy conditions. To learn more about pediatric vaccinations (ages 5-11), we invite you to visit the [facility] webpage. https://[email or web address].org/p ages/3381-Mcuaa-Qqablioqwca-Freq gnhlfs-Euyou-[email or web address].html To learn more about the COVID-19 vaccine, we invite you to visit the CDC website for a list of frequently asked questions.https://www.cdc.gov/co ronavirus/2019-ncov/vaccines/faq .html [employer] Patient Portal Access Instructions: Stay connected with your healthcare team and access your personal medical information anytime with the [employer] Patient Portal. Please follow the directions below to create your [employer] account: 1.Access the email account you provided upon registration to the hospital/physician office.2.Look for an invitation email from [facility].3.Open the email and access the invitation link: Accept Invitation to [employer].4.Fill in the required orr to create your account. To access your account, visit [employer]/KAICOREhart. Click the blue button labeled Access Patient [...] you will allow to register on the [employer] Patient Portal for access to your information. You can also access the [employer] Patient Portal on the [facility] frida. Simply click on Patient Portal and then log into your account. If you would like to receive a full copy of your medical records, please contact the [facility] Medical Records Department by calling [phone], Monday through Monday between 8 a.m. and [...] Call your local pharmacy or go to [email or web address] to find one close to you.3.Make use of household items: Use cat litter or old coffee grounds to dispose medications if other options are not available. Mix your drugs with these household products, seal them in an airtight container and throw it into the garbage. Call [facility]: [phone] to be sure your drugs can be [...] aware that I should contact my doctor. Patient/Therapist'S Assistant Signature: Date/Time: Relationship to Patient: Witness Name/Signature: Date/Time: [facility] 10-23-2024 Orthopaedic surgery Progress note Date of [...] obturator, femoral, LCN, DPN, SPN, sural, saphenous, M/ENVIRONMENTAL HEALTH TECHNOLOGIST - Calf soft and non-tender Left Lower Extremity - No pain to left lower extremity. Walking boot in place when patient is ambulating - Motor: Hip flexion/extension, quadriceps, hamstrings, gastruc/soleus, EHL/FHL intact. - DP and PT pulse 2+. Foot warm and perfused. BCR - Sensation grossly intact L2-S2: obturator, femoral, LCN, DPN, SPN, sural, saphenous, M/ENVIRONMENTAL HEALTH TECHNOLOGIST - Calf soft and non-tender Weight Dosing [...] TARA MISHRA DO on 10/23/2024 07:03 AM [facility] 10-23-2024 Orthopaedic surgery Progress note Date of [...] obturator, femoral, LCN, DPN, SPN, sural, saphenous, M/ENVIRONMENTAL HEALTH TECHNOLOGIST - Calf soft and non-tender Left Lower Extremity - No pain to left lower extremity. Walking boot in place when patient is ambulating - Motor: Hip flexion/extension, quadriceps, hamstrings, gastruc/soleus, EHL/FHL intact. - DP and PT pulse 2+. Foot warm and perfused. BCR - Sensation grossly intact L2-S2: obturator, femoral, LCN, DPN, SPN, sural, saphenous, M/ENVIRONMENTAL HEALTH TECHNOLOGIST - Calf soft and non-tender Weight Dosing [...] TARA MISHRA DO on 10/23/2024 07:03 AM [facility] 10-22-2024 Orthopaedic surgery Progress note Date of [...] obturator, femoral, LCN, DPN, SPN, sural, saphenous, M/ENVIRONMENTAL HEALTH TECHNOLOGIST - Calf soft and non-tender Left Lower Extremity - No pain to left lower extremity. Walking boot in place when patient is ambulating - Motor: Hip flexion/extension, quadriceps, hamstrings, gastruc/soleus, EHL/FHL intact. - DP and PT pulse 2+. Foot warm and perfused. BCR - Sensation grossly intact L2-S2: obturator, femoral, LCN, DPN, SPN, sural, saphenous, M/ENVIRONMENTAL HEALTH TECHNOLOGIST - Calf soft and non-tender Weight Dosing [...] TARA MISHRA DO on 10/22/2024 05:51 AM [facility] 10-22-2024 Orthopaedic surgery Progress note Date of [...] obturator, femoral, LCN, DPN, SPN, sural, saphenous, M/ENVIRONMENTAL HEALTH TECHNOLOGIST - Calf soft and non-tender Left Lower Extremity - No pain to left lower extremity. Walking boot in place when patient is ambulating - Motor: Hip flexion/extension, quadriceps, hamstrings, gastruc/soleus, EHL/FHL intact. - DP and PT pulse 2+. Foot warm and perfused. BCR - Sensation grossly intact L2-S2: obturator, femoral, LCN, DPN, SPN, sural, saphenous, M/ENVIRONMENTAL HEALTH TECHNOLOGIST - Calf soft and non-tender Weight Dosing [...] TARA MISHRA DO on 10/22/2024 05:51 AM [facility] 10-21-2024 Orthopaedic surgery Progress note Date of [...] SANDRA GARCIA DO on 10/21/2024 10:00 AM [facility] 10-21-2024 Orthopaedic surgery Progress note Date of [...] SANDRA GARCIA DO on 10/21/2024 10:00 AM [facility] 10-18-2024 Pastoral care Progress note Pastoral Care Note Entered On: 10/18/2024 16:52 EDT Performed On: 10/18/2024 14:50 EDT by Sanjay Lucas [facility] Type of Pastoral Visit : Initial visit [...] by Sanjay Lucas on 10/18/2024 04:50 PM [facility] 10-18-2024 Note PIN care completed by bedside RN. Ortho approved protocol orders for care daily. Digitally Signed by SHAHEEN Lou on 10/18/2024 01:37 PM [facility] 10-18-2024 Note Date of Service 10/18/2024 Chief [...] by GROVER HOFFMAN on 10/18/2024 01:11 PM [facility] 10-17-2024 Note Exam Date Time Procedure Performing Provider Status 10/17/24 1:14 PM XR Fluoro 1-2 Hrs Tech Time KAILEY WAHL DO; Auth (Verified) [id number] ORIGINAL EXAMINATION: TAD MD - > 1 HR TECHNIQUE: Total fluoro time is 43.2 seconds. Total exposure is 2.0531 mGy. COMPARISON: CT ankle 10/17/2024, x-ray ankle 10/16/2024. HISTORY: ORDERING SYSTEM PROVIDED HISTORY: Reason for Exam: RIGHT ANKLE FX FINDINGS: Intraoperative fluoroscopic images from external surgical fixation of a distal fibular fracture. IMPRESSION: Intraoperative fluoroscopic images. Please refer to the batt machine operator's report for further information. I have personally reviewed the images of this examination and agree with the resident's findings and interpretation. Interpreted by: Corey Wahl Preliminary Report By: Nadya Hudson Electronically signed By Corey Wahl Dictated Date: 10/17/2024 1:42:02 PM Prelim Date: 10/17/2024 2:15:08 PM Sign Date: 10/17/2024 2:15:08 PM [facility]ing [id number] Note Date of Service 10/17/2024 Chief Complaint Medical management Subjective This 54-year-old white male with a past medical history of type 2 diabetes mellitus, hypertension, COPD, HFpEF, anxiety, atrial fibrillation on Xarelto and Tikosyn presented to [facility] aftermechanical fall and subsequent ankle pain. Patient [...] by GROVER HOFFMAN on 10/17/2024 12:52 PM [facility] [id number] Anesthesiology Consult note Patient: SOCORRO KELLEY Age: [...] CHANTAL WHEATLEY DO on 10/17/2024 11:13 AM [facility] [id number] Note* Exam Date Time Procedure Performing Provider Status 10/17/24 10:[address] Ankle w/o Contrast Right KATHY REVELES MD; Auth (Verified) [id number] ORIGINAL EXAMINATION: CT OF THE RIGHT ANKLE [...] spanning external fixator, multiplanar 10/17. transfer from [facility]. for right ankle fracture with [...] PM Ordering Provider: TARA MISHRA [facility] [id number] History and physical note Date of Service 10/16/2024 Chief Complaint Pt here from [facility] via squad after a mechanical fall causing a fracture to his right ankle. They splinted it in their ED and sent to [place] for surgical consult. History of Present Illness Patient is a 54-year-old male who presents to the [facility] emergency department as a transfer from [facility] for his right ankle fracture. [...] Blood, q24h, for 5 day(s), Preferred Lab: [facility], Stop date 10/20/24 22:00:00 EDT Bedrest, [...] Blood, q24h, for 5 day(s), Preferred Lab: [facility], Stop date 10/20/24 22:00:00 EDT Complete Metabolic Panel(CMP), 10/16/24 21:21:00 EDT, URGENT (collect within 2 hrs), Blood, Once, Nurse Collect, Preferred Lab: [facility], Stop date 10/16/24 21:37:00 EDT Consult to Physician, 10/16/24 21:21:00 EDT, HOSPITALISTLARRY (For Consultation Assignment OnlyNO other Orders), Routine, medical clearance, follow medically Diet Order, 10/16/24 21:21:00 EDT, Start Meal: Next meal, Regular, Constant Order, : N/A, : N/A Electrocardiogram(EKG), 10/16/24 21:21:00 EDT, Complete by Nursing Incentive Spirometer, 10/16/24 21:21:00 EDT, [id number] Intake and Output, 10/16/24 21:21:00 EDT, q8h (2p, 10p, 6a) IV Catheter Insertion/Care(Peripheral IV Insertion/Care), 10/16/24 21:21:00 EDT, IV Care: Once, 18 gauge angiocath, if possible Pulse Oximeter - Intermittent, 10/16/24 21:21:00 EDT, AsDirected, PRN order, On admission and as indicated Type and Screen, 10/16/24 21:21:00 EDT, URGENT (collect within 2 hrs), Blood, Once, Nurse Collect, Preferred Lab: [facility], Stop date 10/16/24 21:21:00 EDT Vital [...] RIC ARELLANO DO on 10/16/2024 09:43 PM [facility] [id number] Anesthesiology Consult note Patient: SOCORRO KELLEY Age: [...] list: Medical Asthma exacerbation / SNOMED CT 3219592464 / Confirmed COPD exacerbation / SNOMED CT 7338747558 / Confirmed Atopic dermatitis / SNOMED CT 32493958 / Confirmed Atypical chest pain / SNOMED CT 046956721 / Confirmed Morbid obesity with BMI of 40.0-44.9, adult / SNOMED CT 7027951220 / Confirmed Bronchitis / SNOMED CT 63538071 / Confirmed Cardiomyopathy / SNOMED CT 382819747 / Confirmed CHF with cardiomyopathy / SNOMED CT 37091113 / Confirmed Cough / SNOMED CT 31707252 / Confirmed Dental abscess / SNOMED CT 268491145 / Confirmed Depression / SNOMED CT 47154172 / Confirmed Dyspnea / SNOMED CT 831659079 / Confirmed Generalized anxiety disorder / SNOMED CT 07957504 / Confirmed Hypertension associated with type 2 diabetes mellitus / SNOMED CT 8863951451 / Confirmed Insomnia / SNOMED CT 394151901 / Confirmed LVH (left ventricular hypertrophy) / SNOMED CT 27831004 / Confirmed Moderate asthma / SNOMED CT 9098670815 / Confirmed Near syncope / SNOMED CT 9495378068 / Confirmed Chewing tobacco nicotine dependence / SNOMED CT 52977523 / Confirmed KOFFI (obstructive sleep apnea) / SNOMED CT 037078801 / Confirmed Right knee pain / SNOMED CT 3797635383 / Confirmed Paroxysmal atrial fibrillation / SNOMED CT 962241736 / Confirmed Screening for ischemic heart disease / SNOMED CT 920445200 / Confirmed Screening for colon cancer / SNOMED CT 841115829 / Confirmed Statin intolerance / SNOMED CT 1631041729 / Confirmed Tachyarrhythmia / SNOMED CT 54394390 / Confirmed Type 2 diabetes mellitus with hemoglobin A1c goal of less than 7.0% / SNOMED CT 737535005 / Confirmed Type 2 diabetes mellitus with hyperlipidemia / SNOMED CT 578971691 / Confirmed, Active Problems (32) Asthma exacerbation [...] Histories Past Medical History: Resolved Morbid obesity (134507278): Resolved. Diabetes mellitus (391262422): Resolved. Hypertension (9680974180): Resolved. BMI 45.0-49.9, adult (7556490474): Resolved. Anxiety (26789733): Resolved. Prediabetes (3048233948): Resolved. Obstructive sleep apnea (824513839): Resolved. Right flank pain (366333445): Resolved. Hyperlipidemia (99082224): Resolved. Mass of arm (497271549): Resolved. Family History: Cancer Father Heart disease Mother Grandparent Stroke Father Procedure history: Excision ([id number]) on 03/25/2024 at 53 Years. 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 Cardioversion (726243797) on 12/23/2022 at 52 Years. Echocardiogram (6959471873) on 11/11/2022 at 52 Years. Comments: 03/20/2023 [...] right atrial pressure is 15 mm Hg [facility] ([id number]). Comments: 07/11/2022 8:26 SHAHEEN Nunez - right [...] Temp Oral36.7 DegC (OCTOBER 17:12) Heart Rate Foxkqrodg19 bpm (OCTOBER 17 00:00) MQW402 mmHg (OCTOBER 17:12) DBP82 mmHg (OCTOBER 17:12) BMI44.92 (OCTOBER 17:29) Measurements from flowsheet : Measurements 10/17/2024 1:29 EDT Height 177.8 cm Height in inches 70 inch(es) Admission Weight 142 kg Weight Lbs 312.4 lb [place] Body Weight 73.00 kg Type of Scale [...] PRN medication effectiveness Partial Nail Bed Color [place] Capillary Refill < 2 seconds Dorsalis Pedis Pulse, Left 2+ Normal Radial Pulse, Left 2+ Normal Radial Pulse, Right 2+ Normal Respirations Unlabored Respiratory Pattern Regular All Lobes Breath Sounds Clear Abdomen Description Non-distended, Rounded Abdomen Palpation Non-Tender Passing Flatus Yes Bowel Sounds All Quadrants Present Skin Description [place], Dry Skin Temperature Warm Skin Integrity Pressure points intact Skin Turgor Elastic All Extremity Description [place], Normal for ethnicity Temperature All Extremities Warm Mucous Membrane Color [place] Mucous Membrane Description Moist Ankle Right Incision, Wound Dressing/Activity: Assessed Incision, Wound Dressing: Elastic wrap bandage Wound Associated Pain: With activity, mobilization Buttock Inferior, Inner Skin Abnormality Type: Non-pressure ulcer Skin Abnormality Color: [place], Red Incision, Wound Surrounding Tissue: Normal skin [...] EDT Designated Person #1 We May Share [facility] MARILYN OSPINA [phone] Designated Person #1 Relationship Sibling Designated Person #2 We May Share PHI Designated Person #2 We May Share PHI Privacy Restrictions Requested None Height 177.8 cm Height in inches 70 inch(es) Admission Weight 142 kg Weight Lbs 312.4 lb [place] Body Weight 73.00 kg Type of Scale [...] evident Teaching Method Explanation Preferred Spoken Language [place] Preferred Written Language [place] Disease Process General Education Signs/Symptoms to report, [...] 10/16/2024 16:28 EDT Status N/A [place] 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 They splinted it in their ED and sent to [place] for surgical consult. Place Where Injury/Illness Occurred Other: [facility] Anticoagulants Taken In Past 6 Wks. [...] Non-distended, Symmetric Abdomen Palpation Non-Tender Skin Description [place], Normal for ethnicity, Dry Skin Temperature Warm Mucous Membrane Color [place] Mucous Membrane Description Moist Neurological Symptoms Patient denies Level of Consciousness Alert Eye Opening Response [place] Spontaneously Best Motor Response [place] Obeys simple commands Best Verbal Response [place] Oriented Luis Felipe Coma Score 15 CLARA [...] No Weight Loss No Preferred Spoken Language [place] Preferred Written Language [place] Tracking Group ED Tracking Group Tracking Acuity 3 ED Diabetic Patient No Mode of Transfer Ground ambulance Ambulance Service [facility] Positioning Repositions self Standard Safety ID [...] ED Triage Adults . Assessment and Plan [place] [employer] Anesthesiologists (ASA) physical status classification: [...] diabetes mellitus with hyperlipidemia Historical Anxiety [facility] Hyperlipidemia Hypertension Mass of arm Obstructive sleep apnea Prediabetes Right flank pain . Digitally Signed by MELISSA MARIN MD on 10/17/2024 06:21 AM Digitally Signed by DELORES BRAVO on 10/17/2024 07:17 AM [id number] Note Date of Service October 16, 2024 [...] KARLENE BARCENAS DO on 10/16/2024 10:38 PM [facility] [id number] Note* Exam Date Time Procedure Performing Provider Status 10/16/24 10:24 PM Electrocardiogram - EKG - CV SA SULY PAULINO MD; Auth (Verified) ECG Final Report SINUS RHYTHM LEFT ANTERIOR FASCICULAR BLOCK LOW VOLTAGE, PRECORDIAL LEADS Electronic Signature: ALIZA PAULINO MD 10/17/2024 18:58:09 [facility] [id number] Note* Exam Date Time Procedure Performing Provider Status 10/16/24 10:07 PM XR Ankle Minimum 3 Views Left TRACE ROUSE MD; Auth (Verified) [id number] ORIGINAL EXAMINATION: THREE XRAY VIEWS OF THE [...] 10/16/2024 10:39:42 PM Ordering Provider: RIC ARELLANO [facility] [id number] History and physical note Date of Service 10/16/2024 Chief Complaint Pt here from [facility] via squad after a mechanical fall causing a fracture to his right ankle. They splinted it in their ED and sent to [place] for surgical consult. History of Present Illness Patient is a 54-year-old male who presents to the [facility] emergency department as a transfer from [facility] for his right ankle fracture. [...] Blood, q24h, for 5 day(s), Preferred Lab: [facility], Stop date 10/20/24 22:00:00 EDT Bedrest, 10/16/24 21:21:00 EDT, Strict, continuous, Constant order Blood Glucose Call Parameter, 10/16/24 21:21:00 EDT, If patient is NPO for x-ray or surgery and hypoglycemic, call physician for further orders, 10/16/24 21:21:00 EDT Blood Glucose Call Parameter, 10/16/24:21:00 EDT, [...] Blood, q24h, for 5 day(s), Preferred Lab: [facility], Stop date 10/20/24 22:00:00 EDT Complete Metabolic Panel(CMP), 10/16/24 21:21:00 EDT, URGENT (collect within 2 hrs), Blood, Once, Nurse Collect, Preferred Lab: [facility], Stop date 10/16/24 21:37:00 EDT Consult to Physician, 10/16/24 21:21:00 EDT, HOSPITALISTLARRY (For Consultation Assignment OnlyNO other Orders), Routine, medical clearance, follow medically Diet Order, 10/16/24 21:21:00 EDT, Start Meal: Next meal, Regular, Constant Order, : N/A, : N/A Electrocardiogram(EKG), 10/16/24 21:21:00 EDT, Complete by Nursing Incentive Spirometer, 10/16/24 21:21:00 EDT, [id number] Intake and Output, 10/16/24 21:21:00 EDT, q8h (2p, 10p, 6a) IV Catheter Insertion/Care(Peripheral IV Insertion/Care), 10/16/24 21:21:00 EDT, IV Care: Once, 18 gauge angiocath, if possible Pulse Oximeter - Intermittent, 10/16/24 21:21:00 EDT, AsDirected, PRN order, On admission and as indicated Type and Screen, 10/16/24 21:21:00 EDT, URGENT (collect within 2 hrs), Blood, Once, Nurse Collect, Preferred Lab: [facility], Stop date 10/16/24 21:21:00 EDT Vital [...] RIC ARELLANO DO on 10/16/2024 09:43 PM [facility] [id number] Note* Exam Date Time Procedure Performing Provider Status 10/16/24 8:42 PM XR Ankle Minimum 3 Views Right TRACE ROUSE MD; Auth (Verified) [id number] ORIGINAL EXAMINATION: THREE XRAY VIEWS OF THE [...] 10/16/2024 9:20:54 PM Ordering Provider: RIC ARELLANO [facility] [id number] Note* Exam Date Time Procedure Performing Provider Status 10/16/24 7:09 PM XR Ankle Minimum 3 Views Right TRACE ROUSE MD; Auth (Verified) [id number] ORIGINAL EXAMINATION: THREE XRAY VIEWS OF THE [...] Sign Date: 10/16/2024 7:53:07 PM Ordering Provider: [facility]05-21-2025 Note* Exam Date Time Procedure Performing Provider Status 10/16/24 5:43 PM XR Ankle Minimum 3 Views Right TRACE ROUSE MD; Auth (Verified) [id number] ORIGINAL EXAMINATION: THREE XRAY VIEWS OF THE [...] 10/16/2024 6:28:12 PM Ordering Provider: EM GARCIA [facility] [id number] Evaluation + Plan noteExtracted from: Title:Ortho History [...] q24h, for 5 day(s), Preferred Lab: [facility], Stop date 10/20/24 22:00:00 EDT Complete Metabolic Panel(CMP), 10/16/24 21:21:00 EDT, URGENT (collect within 2 hrs), Blood, Once, Nurse Collect, Preferred Lab: [facility], Stop date 10/16/24 21:37:00 EDT Consult to Physician, 10/16/24 21:21:00 EDT, HOSPITALISTLARRY (For Consultation Assignment Only NO other Orders), Routine, medical clearance, follow medically Diet Order, 10/16/24 21:21:00 EDT, Start Meal: Next meal, Regular, Constant Order, : N/A, : N/A Electrocardiogram(EKG), 10/16/24 21:21:00 EDT, Complete by Nursing Incentive Spirometer, 10/16/24 21:21:00 EDT, [id number] Intake and Output, 10/16/24 21:21:00 EDT, q8h (2p, 10p, 6a) IV Catheter Insertion/Care(Peripheral IV Insertion/Care), 10/16/24 21:21:00 EDT, IV Care: Once, 18 gauge angiocath, if possible Pulse Oximeter - Intermittent, 10/16/24 21:21:00 EDT, AsDirected, PRN order, On admission and as indicated Type and Screen, 10/16/24 21:21:00 EDT, URGENT (collect within 2 hrs), Blood, Once, Nurse Collect, Preferred Lab: [facility], Stop date 10/16/24 21:21:00 EDT Vital [...] Appointment Date:11/08/2024 02:30:00 PM Scheduled Provider:EDY WEBER Location:[facility] Appointment Type:CV OV Hospital Follow Up Appointment Date:11/12/2024 03:30:00 PM Scheduled Provider:ISADORA CORREA Location:[facility] Appointment Type:PC OV Future Scheduled Tests Laboratory* Basic Metabolic Panel 02/07/24 * Basic Metabolic Panel 12/10/24 * Basic Metabolic Panel 02/19/24 * Magnesium Level 02/07/24 * Complete Blood Count 08/27/24 * Complete Metabolic Panel 08/27/24 * N-Terminal proBNP 08/27/24 [facility] 05-09-2025 Hospital Discharge instructions Patient Education 10/04/2024 [...] Slowly return to your usual activities. Take zsbv-ley-tnubudj and prescription medicines only as told by [...] 02/07/2002 Document Revised: 10/15/2018 Document Reviewed: 10/15/2018 [email or web address] Patient Education 2020 [employer]. 10/04/2024 21:03:30 Pursed Lip Breathing Pursed Lip [...] exercise. Follow these instructions at home: Take mpfh-kgg-pmzxhta and prescription medicines only as told by [...] 02/21/2009 Document Revised: 04/27/2018 Document Reviewed: 04/06/2017 [email or web address] Patient Education 2020 [email or web address] 10/04/2024 21:03:27 Cough, Adult Cough, Adult Coughing [...] Follow these instructions at home: Medicines Take ocoa-vju-glmyrsn and prescription medicines only as told by [...] of a condition that needs treatment. Take bdub-qoz-wbwasfh and prescription medicines only as told by [...] 11/11/2011 Document Revised: 06/03/2019 Document Reviewed: 06/03/2019 [email or web address] Patient Education 2020 [employer]. Follow Up Care 10/02/2024 02:08:49 With:readmission score is 13 Address:Unknown When: Unknown With:ISADORA CORREA Address: [address] [place] [address]- [phone] Business (1) When:1-2 days [facility] 05-09-2025 Note Discharge Instructions Thank you for allowing [facility] to assist you with your healthcare needs. The following is importantdischarge information regarding your hospital visit. Your Care Team ISADORA CORREA Your Diagnosis Shortness of breath What to do next Scheduled Follow-Up Appointments Appointment Type When With Where Contact Information StatusPC OV 10/23/2024 04:00 PM EDT ISADORA CORREA [facility] [phone] Confirmed CV OV Hospital Follow Up 11/08/2024 02:30 PM EDT EDY WEBER [facility] CVC Confirmed Follow Up Appointments Follow Up with readmission score is 13 Follow Up with ISADORA CORREA When:Within 1-2 days Where:[address] [place] [address]- [phone] Business (1) The Following Activity and Diet [...] within 14 days after discharge, please call [facility] at [phone]. Post Acute Orders No qualifying data available. [...] a day Take with food Pickup at [facility]/pharmacy #[id number] Unchanged acetaminophen (Tylenol) by mouth As needed [...] Two (2) times a day Pickup at [facility]/pharmacy #[id number] Unchanged dulaglutide (Trulicity Pen 1.5 [...] by mouth Daily at bedtime Pickup at [facility]/pharmacy #[id number] Unchanged spironolactone (spironolactone 25 mg oral tablet) 1 tab(s) by mouth Once a day Duration: 90 Days Unchanged tiZANidine (tiZANidine 2 mg oral tablet) 1 tab(s) by mouth Every 8 hours as needed for as needed for muscle spasm Duration: 7 Days Unchanged traZODone (traZODone 100 mg oral tablet) 1 tab(s) by mouth Daily at bedtime Pharmacy Information [facility]/pharmacy #[id number]: [address], [place] [id number] [phone] Please take this list to your next [...] Your doctor may occasionally change your dose. Do not use this medicine in larger or smaller [...] may report side effects to FDA at [phone]. What other drugs will affect hydroxyzine? Taking [...] may interact with hydroxyzine, including prescription and sbrd-djd-fnioawm medicines, vitamins, and herbal products. Not all [...] to ensure that the information provided by [employer]. ('[employer]') is accurate, up-to-date, and complete, but no guarantee is made to that effect. Drug information contained herein may be time sensitive. [employer] information has been compiled for use by healthcare practitioners and consumers in the [place] and therefore [employer] does not warrant that uses outside of the [place] are appropriate, unless specifically indicated otherwise. [employer] drug information does not endorse drugs, diagnose patients or recommend therapy. [employer] drug information isan informational resource designed to [...] effective or appropriate for any given patient. [employer] does not assume any responsibility for any aspect of healthcare administered with the aid of information [employer] provides. The information contained herein is not intended to cover all possible uses, directions, precautions, warnings, drug interactions, allergic reactions, or adverse effects. If you have questions about the drugs you are taking, check with your doctor, nurse or pharmacist. Copyright 3351-5032 [employer]. Version: 8.01. Revision Date: 08/10/2016. furosemide (oral/injection) [...] blood pressure, such as diet pills or okzmt-tqz-oexu medicine. What are the possible side effects [...] may report side effects to FDA at 4-200-PQM-0588. What other drugs will affect furosemide? Sometimes [...] drugs may affect furosemide, including prescription and ltos-ykd-dsafbit medicines, vitamins, and herbal products. Not all [...] to ensure that the information provided by [employer] ('[employer]') is accurate, up-to-date, and complete, but no guarantee is made to that effect. Drug information contained herein may be time sensitive. [employer] information has been compiled for use by healthcare practitioners and consumers in the [place] and therefore [employer] does not warrant that uses outside of the [place] are appropriate, unless specifically indicated otherwise. [employer] drug information does not endorse drugs, diagnose patients or recommend therapy. [employer] drug information isan informational resource designed to [...] effective or appropriate for any given patient. [employer] does not assume any responsibility for any aspect of healthcare administered with the aid of information [employer] provides. The information contained herein is not intended to cover all possible uses, directions, precautions, warnings, drug interactions, allergic reactions, or adverse effects. If you have questions about the drugs you are taking, check with your doctor, nurse or pharmacist. Copyright [id number] [employer]. Version: .. Revision Date: 11/07/2023. cetirizine (oral/injection) [...] may report side effects to FDA at 5-480-HEE-9759. What other drugs will affect cetirizine? Using cetirizine with other drugs that make you drowsy can worsen this effect. Ask your doctor before using opioid medication, a sleeping pill, a muscle relaxer, or medicine for anxiety or seizures. Other drugs may affect cetirizine, including prescription and vixe-exl-eunybes medicines, vitamins,and herbal products. Tell your doctor [...] to ensure that the information provided by [employer] ('[employer]') is accurate, up-to-date, and complete, but no guarantee is made to that effect. Drug information contained herein may be time sensitive. [employer] information has been compiled for use by healthcare practitioners and consumers in the [place] and therefore [employer] does not warrant that uses outside of the [place] are appropriate, unless specifically indicated otherwise. [employer] drug information does not endorse drugs, diagnose patients or recommend therapy. [employer] drug information isan informational resource designed to [...] effective or appropriate for any given patient. [employer] does not assume any responsibility for any aspect of healthcare administered with the aid of information [employer] provides. The information contained herein is not intended to cover all possible uses, directions, precautions, warnings, drug interactions, allergic reactions, or adverse effects. If you have questions about the drugs you are taking, check with your doctor, nurse or pharmacist. Copyright 0791-0749 [employer]. Version: 13.01. Revision Date: 11/16/2022. dofetilide (mathias FET i [...] may report side effects to FDA at 7-823-QOZ-8577. What other drugs will affect dofetilide? Other drugs may interact with dofetilide, including prescription and tycu-fyw-veekjom medicines, vitamins, and herbal products. Tell each [...] to ensure that the information provided by [employer] ('[employer]') is accurate, up-to-date, and complete, but no guarantee is made to that effect. Drug information contained herein may be time sensitive. [employer] information has been compiled for use by healthcare practitioners and consumers in the [place] and therefore [employer] does not warrant that uses outside of the [place] are appropriate, unless specifically indicated otherwise. [employer] drug information does not endorse drugs, diagnose patients or recommend therapy. [employer] drug information isan informational resource designed to [...] effective or appropriate for any given patient. [employer] does not assume any responsibility for any aspect of healthcare administered with the aid of information [employer] provides. The information contained herein is not intended to cover all possible uses, directions, precautions, warnings, drug interactions, allergic reactions, or adverse effects. If you have questions about the drugs you are taking, check with your doctor, nurse or pharmacist. Copyright 5107-8499 [employer]. Version: 4.01. Revision Date: 09/09/2015. allopurinol (oral/injection) [...] and call your (more content not included)... [facility]fomb[facility]fj[facility] Pastoral care Progress note Pastoral Care Note [...] by Sanjay Lucas on 10/04/2024 04:16 PM [facility] SystemUerrzahi50-11-0803 Discharge summary Date of Service 10/04/2024 Discharge [...] When:Within 1-2 days Where:[address] [place] [address]- [phone] Business (1) Follow Up Appointments No qualifying data available. Follow Up Labs/Studies Discharge Labs No Follow-up Labs Discharge Studies No Follow-up Studies Discharge Diet No qualifying data available. Discharge Activity No qualifying data available. Readmission Risk/Palliative Score LACE Score: 13 (10/02/24 10:21:00) Palliative Total Score: 1 (10/02/24 10:21:00) Digitally Signed by DUSTIN RICHARD MD on 10/04/2024 12:27 PM [facility] SystemZqevquaz79-12-2941 Discharge summary Date of Service 10/04/2024 Discharge [...] When:Within 1-2 days Where:[address] [facility] [place] [phone] Business (1) Follow Up Appointments No qualifying data available. Follow Up Labs/Studies Discharge Labs No Follow-up Labs Discharge Studies No Follow-up Studies Discharge Diet No qualifying data available. Discharge Activity No qualifying data available. Readmission Risk/Palliative Score LACE Score: 13 (10/02/24 10:21:00) Palliative Total Score: 1 (10/02/24 10:21:00) Digitally Signed by DUSTIN RICHARD MD on 10/04/2024 12:27 PM [facility] SystemJkxnnkmf13-04-8230 Cardiology Progress note Date of Service 10/03/2024 [...] DUSTIN RICHARD MD on 10/03/2024 01:50 PM [facility] SystemNffhlgtu57-77-6202 Note* Exam Date Time Procedure Performing Provider Status 10/03/24 10:08 PM Electrocardiogram - EKG - CV JOHNIE VELÁZQUEZ MD; Auth (Verified) ECG Final Report SINUS RHYTHM LEFT AXIS DEVIATION LOW VOLTAGE, PRECORDIAL LEADS Electronic Signature: JOHNIE VELÁZQUEZ MD 10/04/2024 21:58:08 [facility] SystemXjdjerzf83-39-0514 Note* Exam Date Time Procedure Performing Provider Status 10/03/24 4:01 PM Echocardiogram, Adult - CV ALIZA PAULINO MD; Auth (Verified) [facility] [id number] Cardiology Progress note Date of Service 10/03/2024 [...] DUSTIN RICHARD MD on 10/03/2024 01:50 PM [facility] SystemHcrxbtbx84-33-3159 Note* Exam Date Time Procedure Performing Provider Status 10/03/24 10:03 AM Electrocardiogram - EKG - CV JOHNIE VELÁZQUEZ MD; Auth (Verified) ECG Final Report SINUS RHYTHM LOW VOLTAGE, PRECORDIAL LEADS CONSIDER ANTERIOR INFARCT Electronic Signature: JOHNIE VELÁZQUEZ MD 10/04/2024 21:57:56 [facility] SystemTsppjowv05-79-1012 Note* Exam Date Time Procedure Performing Provider Status 10/02/24 10:04 PM Electrocardiogram - EKG - CV JOHNIE VELÁZQUEZ MD; Auth (Verified) ECG Final Report SINUS RHYTHM LEFT ANTERIOR FASCICULAR BLOCK PROLONGED QT INTERVAL Electronic Signature: JOHNIE VELÁZQUEZ MD 10/03/2024 19:52:07 [facility] [id number] History and physical note Date of Service [...] Diabetes mellitus Patient is currently in in [facility] A-fib. Rate is relatively well-controlled. Continue Cardizem [...] DUSTIN RICHARD MD on 10/02/2024 03:28 PM [facility] [id number] Note Date of Service October 02, 2024 [...] only), Blood, Once, Nurse Collect, Preferred Lab: [facility], Stop date 10/03/24 5:00:00 EDT Electrocardiogram(EKG), 10/02/24 14:31:00 EDT, STAT on Admission, Complete by Nursing Patient Education, 10/02/24 14:31:00 EDT, Once, Give patient the Dofetilide Handout 1. Persistent AF Reoccurring persistent AF. Patient was maintained normal sinus rhythm on Tikosyn. However he missed several doses secondary to the passing of his . Patient spontaneously converted [...] unknown unit (08/14/20) Digitally Signed by MARILUZ BIU on 10/02/2024 02:36 PM [facility] SystemSjlkcboe77-02-6384 Note Date of Service October 02, 2024 [...] only), Blood, Once, Nurse Collect, Preferred Lab: [facility], Stop date 10/03/24 5:00:00 EDT Electrocardiogram(EKG), [...] by MARILUZ BUI on 10/02/2024 02:36 PM [facility] SystemDggkbqoh52-68-5469 Evaluation + Plan noteExtracted from: Title:History and Physical Author:DUSTIN RICHARD MD Date:10/02/24 Paroxysmal atrial fibrillati on Tachyarrhythmia induced cardiomyopathy Heart failure with improved EF (EF 30 to 35% in October 2022 to 55% in 2023) Moderate to severe LVH Mild pulmonary hypertension Severely dilated LA (LA 5.1 cm, DANIEL??) Obesity and KOFFI (intolerant to CPAP) Hypertension Diabetes mellitus Patient is currently in in [facility]. Rate is relatively well-controlled. Continue Cardizem drip. [...] Appointment Date:10/23/2024 04:00:00 PM Scheduled Provider:ISADORA CORREA Location:[facility] Appointment Type: OV Appointment Date:11/08/2024 02:30:00 PM Scheduled Provider:EDY WEBER [facility] Type:[facility] Follow Up Diagnostic Tests Pending * Urinalysis w/ C&S if Indicated 10/02/24 Future Scheduled Tests Laboratory* Basic Metabolic Panel 02/07/24 * Basic Metabolic Panel 12/10/24 * Basic Metabolic Panel 02/19/24 * Magnesium Level 02/07/24 * Complete Blood Count 08/27/24 * Complete Metabolic Panel 08/27/24 * N-Terminal proBNP 08/27/24 [facility] 05-07-2025 Note* Exam Date Time Procedure Performing Provider Status 10/02/24 1:53 PM Electrocardiogram - EKG - CV Brant VELÁZQUEZ MD; Auth (Verified) ECG Final Report SINUS RHYTHM PROBABLE LEFT ATRIAL ENLARGEMENT Left axis deviation Electronic Signature: JOHNIE VELÁZQUEZ MD 10/03/2024 19:51:33 [facility] [id number] History and physical note Date of Service [...] Diabetes mellitus Patient is currently in in [place] [facility]-fib. Rate is relatively well-controlled. Continue Cardizem [...] DUSTIN RICHARD MD on 10/02/2024 03:28 PM [facility] SystemBfwodwdc01-94-0985 Respiratory therapy Hospital Progress note Respiratory Therapy [...] by CURTIS Patton on 10/02/2024 11:12 AM [facility] SystemKdddkumn96-60-3263 Note* Exam Date Time Procedure Performing Provider Status 10/02/24 8:23 AM Electrocardiogram - EKG - CV Brant VELÁZQUEZ MD; Auth (Verified) ECG Final Report ATRIAL FIBRILLATION LEFT ANTERIOR FASCICULAR BLOCK Electronic Signature: JOHNIE VELÁZQUEZ MD 10/03/2024 19:51:22 [facility] [id number] Note* Exam Date Time Procedure Performing Provider Status 10/02/24 6:24 AM Electrocardiogram - EKG - CV Brant VELÁZQUEZ MD; Auth (Verified) ECG Final Report ATRIAL FIBRILLATION WITH RAPID VENTRICULAR RESPONSE Right axis deviation Electronic Signature: JOHNIE VELÁZQUEZ MD 10/03/2024 19:51:11 [facility] [id number] Nurse Progress note nephbritany Nicole [phone] Digitally Signed by Halley Staples RN on 10/02/2024 04:26 AM [facility]05-07-2025 Nurse Progress note ready bed at main, transport called at 0230 ETA 90 min Digitally Signed by Halley Staples RN on 10/02/2024 04:22 AM [facility]05-07-2025 Nurse Progress note ready bed at main, transport called at 0230 ETA 90 min Digitally Signed by Halley Staples RN on 10/02/2024 04:22 AM [facility]05-07-2025 Note* Exam Date Time Procedure Performing Provider Status 10/02/24 1:43 AM XR Chest 1 View DARNELL MOLINA MD; [facility] (Verified) [id number] ORIGINAL EXAMINATION: ONE XRAY VIEW OF THE [...] AM Ordering Provider: DELORES MURO [facility]05-07-2025 Note* Exam Date Time Procedure Performing Provider Status 10/02/24 12:38 AM EKG [ED AOH] - DELORES CALLOWAY DO; [facility] (Verified) ECG Final Report Atrial fibrillation Inferior infarct, old Probable anteroseptal infarct, old Prolonged QT interval Baseline wander in lead(s) III,V1,V2,V5,V6 Compared to ECG at 08/13/2024 11:03:57 Electronic Signature: DELORES MURO DO 10/02/2024 02:28:42 [facility]10-30-2024 Note The microscopic examination is performed, except in the case of Gross Only. [facility] 10-29-2024 Note The microscopic examination is performed, except in the case of Gross Only. [facility] 10-29-2024 Note The microscopic examination is performed, except in the case of Gross Only. [facility] 10-29-2024 Note The microscopic examination is performed, except in the case of Gross Only. [facility] 10-29-2024 Note The microscopic examination is performed, except in the case of Gross Only. [facility] 10-29-2024 Note The microscopic examination is performed, except in the case of Gross Only. [facility] 10-29-2024 Note The microscopic examination is performed, except in the case of Gross Only. [facility] 09-09-2024 Note. MICRO - Microbiology PROCEDURE: Blood [...] Locations *1: This test was performed at: [address], [address] [place], [place] [id number] Note. MICRO - Microbiology PROCEDURE: Blood Culture [...] Locations *1: This test was performed at: [address], [address] [place], [place] [id number] Note. MICRO - Microbiology PROCEDURE: Blood Culture [...] Locations *1: This test was performed at: [address], [address] [place], [place] [id number] Note. MICRO - Microbiology PROCEDURE: Blood Culture [...] Locations *1: This test was performed at: [facility], [address] [place] [address], [facility] , [facility] [id number] Hospital Discharge instructions Patient Education 02/01/2024 17:18:13 Atrial Fibrillation, Whgq-gy-Qtmd Atrial Fibrillation Atrial fibrillation is a type [...] Follow these instructions at home: Medicines Take chnl-qru-pvjxuln and prescription medicines only as told by [...] 02/21/2009 Document Revised: 07/19/2018 Document Reviewed: 07/06/2018 [email or web address] Patient Education 2020 [employer]. Follow Up Care 01/31/2024 00:20:11 With:ISADORA CORREA Address: [place] [address]- When:1-2 days Comments:Please call the office to schedule a hospital follow-up appointment. [facility] 09-05-2024 Note Discharge Instructions Thank you for allowing [facility] to assist you with your healthcare needs. The following is importantdischarge information regarding your hospital visit. Your Care Team ISADORA CORREA Your Diagnosis Shortness of breath What to do next Instructions From Your Doctor Resume taking all your usual medications Keep yourself hydrated Follow-up with your primary care physician and medication aide Scheduled Follow-Up Appointments Appointment Type When With Where Contact Information Status Wellness Annual w/Labs 02/13/2024 03:30 PM EDT ISADORA CORREA [facility] Confirmed Follow Up Appointments Follow Up with ISADORA CORREA When:Within 1-2 days Where:[place] [address]- Additional Information: Please call the [...] Follow these instructions at home: Medicines Take oben-div-umjnimr and prescription medicines only as told by [...] 02/21/2009 Document Revised: 07/19/2018 Document Reviewed: 07/06/2018 [email or web address] Patient Education 2020 [employer]. Additional Information VACCINATE! IT SAVES LIVES! Members of the community who have not yet received the COVID-19 vaccine and would like to receive it can visit one of [facility] vaccine clinics. There are many vaccine clinic locations within the [facility]. For locations and available times, please visit [email or web address].[email or web address] It is important to note that some COVID mobile vaccine clinics are held outdoors and may be canceled in rainy or stormy conditions. To learn more about pediatric vaccinations (ages 5-11), we invite you to visit the [facility] webpage. [email or web address]/[email or web address] [email or web address].htmlTo learn more about the COVID-19 vaccine, we invite you to visit the CDC website for a list of frequently asked questions.https://www.cdc.gov/coronavirus/2019-ncov/vaccines/faq.html [facility] Patient Portal Access Instructions: Stay connected with your healthcare team and access your personal medical information anytime with the [facility] Patient Portal. Please follow the directions below to create your [facility] account: 1.Access the email account you provided upon registration to the hospital/physician office.2.Look for an invitation email from [facility].3.Open the email and access the invitation link: AcceptInvitation to [facility].4.Fill in the required orr to create your account. To access your account, visit [email or web address]. Click the blue button labeled Access Patient [...] who you will allowto register on the [facility] Patient Portal for access to your information. You can also access the [facility] Patient Portal on the [facility] frida. Simply click on Patient Portal and then log into your account. If you would like to receive a full copy of your medical records, please contact the [facility] Medical Records Department by calling [phone], Monday through Monday between 8 a.m. and [...] Call your local pharmacy or go to http://bit.ly/0T7Cs9e to find one close to you.3.Make use of household items: Use cat litter or old coffee grounds to dispose medications if other options arenot available. Mix your drugs with these household products, seal them in an airtight container andthrow it into the garbage. Call [facility]: [phone] to be sure your drugs can be [...] COPY. Signatures Patient Education Materials Atrial Fibrillation, Zbdp-ja-Dsva Medication Leaflets My discharge plan and instructions have been reviewed and explained to me and I,SOCORRO KELLEY understand my current condition and have read and understand these discharge instructions. I have received awritten copy of the plan/instructions. If I have questions, I am aware that I should contact my doctor. Patient/Therapist'S Assistant Signature: Date/Time: Relationship to Patient: Witness Name/Signature: Date/Time: [facility]gqll[facility]ix90[facility]80-3395 Discharge summary Date of Service 02/01/2024 Discharge [...] diabetes mellitus. The patient presented to the [facility] on 01/31/2024 as a transfer from [place] for A-fib with RVR. 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 Blood Glucose Test Strips: See Instructions, 1 bottle of 100 Test once daily, # 1 EA, 11 Refill(s), Pharmacy: [facility], 177.8, cm, 11/28/23 13:54:00 EDT, Height, 151.4, kg, 11/28/23 13:54:00 EDT, Dosing Weight FLUoxetine 20 mg oral capsule: Dose : 20 mg = 1 cap(s), Oral, qDay, # 30 cap(s), 3 Refill(s), Pharmacy: [facility], 177.8, cm, 11/28/23 13:54:00 EDT, Height, kg, 11/28/23 13:54:00 EDT,Dosing Weight Lancets: See Instructions, qs 1 month supply Test once daily, # 1 EA, 11 Refill(s), Pharmacy: [facility], 177.8, cm, 11/28/23 13:54:00 EDT, Height, 151.4, kg, 11/28/23 13:54:00 EDT, Dosing Weight Lasix 40 mg oral tablet: See Instructions, 1 tab in AM and 0.5 tab in PM, # 135 tab(s), 3 Refill(s), Pharmacy: [facility], 177.8, cm, 11/28/23 13:54:00 EDT, Height, kg, 11/28/23 13:54:00 EDT, Dosing Weight Symbicort 80 mcg-4.5 mcg/inh Inhaler: Dose = 2 puff(s), Inhalation, BID, # 10.2 gram(s), 3 Refill(s), Pharmacy: [facility], 177.8, cm, 11/28/23 13:54:00 EDT, Height, kg, 11/28/23 13:54:00 EDT, Dosing Weight Tikosyn 250 mcg oral capsule: Dose : 250 mcg = 1 cap(s), Oral, BID, # 180 cap(s), 3 Refill(s), Pharmacy: [facility]/pharmacy #[id number], 177.8, cm, 11/28/23 13:54:00 EDT, Height, kg, 11/28/23 13:54:00 EDT, Dosing Weight Toprol-XL 100 mg oral tablet, extended release: Dose : 100 mg = 1 tab(s), Oral, BID, do not crush or chew, # 180 tab(s), 3 Refill(s), Pharmacy: [facility], Shortness of breath, 177.8, cm, 11/28/23 13:54:00 EDT, Height, kg, 11/28/23 13:54:00 EDT, Dosing Weight Trulicity Pen 1.5 mg/0.5 mL subcutaneous solution: Dose : 1.5 mg =, Subcutaneous, qWeek, sent in absence of PCP, # 4 EA, 3 Refill(s), Pharmacy: [facility], 177.8, cm, 11/28/23 13:54:00EDT, Height, kg, 11/28/23 13:54:00 EDT, Dosing Weight Vistaril 25 mg oral capsule: Dose : 25 mg = 1 cap(s), Oral, QID, PRN as needed for anxiety, X 30 day(s), # 120 cap(s), 5 Refill(s), 06/09/24 16:10:00 EST, Pharmacy: [facility], 177.8, cm, 11/28/23 13:54:00 EDT, Height, kg, 11/28/23 13:54:00 EDT, Dosing Weight Xarelto 20 mg oral tablet: Dose : 20 mg = 1 tab(s), Oral, qHS, # 90 tab(s), 3 Refill(s), Pharmacy: [facility], 177.8, cm, 11/28/23 13:54:00 EDT, Height, 151.4, kg, 11/28/23 13:54:00 EDT, Dosing Weight allopurinol 100 mg oral tablet: Dose : 100 mg = 1 tab(s), Oral, qDay, # 90 tab(s), 3 Refill(s), Pharmacy: [facility], 177.8, cm, 11/28/23 13:54:00 EDT, Height, kg, 11/28/23 13:54:00 EDT, Dosing Weight cetirizine 10 mg oral tablet: Dose : 10 mg = 1 tab(s), Oral, Daily, # 90 tab(s), 3 Refill(s), Pharmacy: [facility], 177.8, cm, 11/28/23 13:54:00 EDT, Height, kg, 11/28/23 13:54:00 EDT,Dosing Weight nystatin 100,000 units/g topical cream: Apply 1 frida, Topical, BID, X 10 day(s), # 30 gram(s), 1 Refill(s), Pharmacy: [facility]/pharmacy #[id number], Cream, 177, cm, 01/12/24 9:42:00 EDT, Height, 148.6, kg, 01/12/24 9:42:00 EDT, Dosing Weight omeprazole 40 mg oral delayed release capsule: Dose : 40 mg = 1 cap(s), Oral, BID, before a meal., # 180 cap(s), 3 Refill(s), Pharmacy: [facility], 177.8, cm, 11/28/23 13:54:00 EDT, Height, kg, 11/28/23 13:54:00 EDT, Dosing Weight rosuvastatin 20 mg oral tablet: Dose : 20 mg = 1 tab(s), Oral, Daily, # 100 tab(s), 3 Refill(s), Pharmacy: [facility], 177.8, cm, 11/28/23 13:54:00 EDT, Height, kg, 11/28/23 13:54:00 EDT, Dosing Weight sacubitril-valsartan 49 mg-51 mg oral tablet: Dose = 1 tab(s), Oral, BID, # 180 tab(s), 3 Refill(s), Pharmacy: [facility], 177.8, cm, 11/28/23 13:54:00 EDT, Height, kg, 11/28/23 13:54:00 EDT, Dosing Weight spironolactone 25 mg oral tablet: Dose : 25 mg = 1 tab(s), Oral, qDay, # 90 tab(s), 3 Refill(s), Pharmacy: [facility], 177.8, cm, 11/28/23 13:54:00 EDT, Height, kg, 11/28/23 13:54:00 EDT, Dosing Weight tiZANidine 2 mg oral tablet: Dose : 2 mg = 1 tab(s), Oral, q8h, PRN as needed for muscle spasm, # 90 tab(s), 2 Refill(s), Pharmacy: [facility], 177.8, cm, 11/28/23 13:54:00 EDT, Height, kg, 11/28/23 13:54:00 EDT, Dosing Weight traZODone 100 mg oral tablet: Dose : 100 mg = 1 tab(s), Oral, qHS, # 90 tab(s), 3 Refill(s), Pharmacy: [facility], 177.8, cm, 11/28/23 13:54:00 EDT, Height, [...] list: Medical Asthma exacerbation / SNOMED CT 3155237848 / Confirmed Anxiety / SNOMED CT 57114959 / Confirmed Atopic dermatitis / SNOMED CT 72767783 / Confirmed BMI 45.0-49.9, adult / SNOMED CT 2903018632 / Confirmed Cardiomyopathy / SNOMED CT 247947793 / Confirmed Diabetes mellitus / SNOMED CT 229652732 / Confirmed Generalized anxiety disorder / SNOMED CT 28189025 / Confirmed Hyperlipidemia / SNOMED CT 64698050 / Confirmed Hypertension / SNOMED CT 8543610909 / Confirmed Insomnia / SNOMED CT 538050047 / Confirmed Moderate asthma / SNOMED CT 3559559813 / Confirmed Morbid obesity / SNOMED CT 699477907 / Confirmed Chewing tobacco nicotine dependence / SNOMED CT 44758273 / Confirmed Obstructive sleep apnea / SNOMED CT 052172270 / Confirmed Right knee pain / SNOMED CT 0138420865 / Confirmed Paroxysmal atrial fibrillation / SNOMED CT 214799851 / Confirmed Screening for ischemic heart disease / SNOMED CT 217397100 / Confirmed Screening for colon cancer / SNOMED CT 828615580 / Confirmed Prediabetes / SNOMED CT 8299874767 / Confirmed Right flank pain / SNOMED CT 955752351 / Confirmed Type 2 diabetes mellitus with hemoglobin A1c goal of less than 7.0% / SNOMED CT 527809252 / Confirmed Wheezing / SNOMED CT 31380940 / Confirmed, Active Problems (26) Anxiety Asthma [...] Mother Grandparent Stroke Father Procedure history: Cardioversion ([id number]) on 12/23/2022 at 52 Years. Echocardiogram ([id number]) on 11/11/2022 at 52 Years. Comments: 03/20/2023 [...] atrial pressure is 15 mm Hg [place] ([id number]). Comments: 07/11/2022 8:26 SHAHEEN Nunez - right [...] On and Limits Checked Nail Bed Color [place] Capillary Refill < 2 seconds Heart Sounds [...] Elimination Voiding, no difficulties All Extremity Description [place] Skin Temperature Warm Temperature All Extremities Warm Skin Description [place], Dry Skin Integrity Intact Skin Turgor Non-Elastic Mucous Membrane Color [place] Mucous Membrane Description Moist Neurological Language Able to speak clearly Neurological Symptoms Patient denies Gait Unable to assess Extremity Movement Equal Swallowing Difficulty None Characteristics of Communication Appropriate Characteristics of Speech Clear Facial Symmetry Symmetric Level of Consciousness Alert Aspiration Risk None Eye Opening Response Luis Felipe Spontaneously Best Motor Response Chelsea Obeys simple commands Best Verbal Response Luis Felipe Oriented Chelsea Coma Score 15 CLARA Yes Strength All [...] On and Limits Checked Nail Bed Color [place] Capillary Refill < 2 seconds Heart Sounds ICU S1S2 Heart Rhythm Irregular Cardiac Rhythm Sinus rhythm Monitoring Lead II, V5/MCL5 MT Interval 0.16 second(s) QRS Duration 0.08 second(s) [...] Elimination Voiding, no difficulties All Extremity Description [place] Skin Temperature Warm Temperature All Extremities Warm Skin Description [place], Dry Skin Integrity Intact Skin Turgor Non-Elastic Mucous Membrane Color [place] Mucous Membrane Description Moist Neurological Language Able to speak clearly Neurological Symptoms Patient denies Gait Unable to assess Extremity Movement Equal Swallowing Difficulty None Characteristics of Communication Appropriate Characteristics of Speech Clear Facial Symmetry Symmetric Level of Consciousness Alert Aspiration Risk None Eye Opening Response Chelsea Spontaneously Best Motor Response Luis Felipe Obeys [...] On and Limits Checked Nail Bed Color [place] Capillary Refill < 2 seconds Heart Sounds [...] Movement Makes facial grimaces All Extremity Description [place] Skin Temperature Warm Temperature All Extremities Warm Skin Description [place], Dry Skin Integrity Intact Skin Turgor Non-Elastic Mucous Membrane Color [place] Mucous Membrane Description Moist Sensory Perception [place] [...] Alert Aspiration Risk None Eye Opening Response Chelsea Spontaneously Best Motor Response Luis Felipe Obeys [...] Yes Gait Weak or Impaired Fall Risk [place] Weak Mental Status Fall Risk [place] Oriented [...] On and Limits Checked Nail Bed Color [place] Capillary Refill < 2 seconds Heart Sounds [...] intact Skin Turgor Non-Elastic Mucous Membrane Color [place] Mucous Membrane Description Moist Neurological Language Able to speak clearly Neurological Symptoms Patient denies Extremity Movement Equal Swallowing Difficulty None Characteristics of Communication Appropriate Characteristics of Speech Clear Facial Symmetry Symmetric Level of Consciousness Alert Aspiration Risk None Eye Opening Response Luis Felipe Spontaneously Best Motor Response Chelsea Obeys simple commands Best Verbal Response [place] Oriented Luis Felipe Coma Score 15 CLARA [...] Phone Message Transition of Care sent from [facility] 01/31/2024 14:59 EDT heparin 9,000 unit(s) unit(s) Dextrose 5% Premix Diluent 90 mL mL 01/31/2024 14:43 EDT [place] Body Weight 72.7 kg Home Diet Regular Weight Chg, Unintentional Nutrition Hx Weight stable per [place] history Appetite Good Nutrition Plan of Care Dietitian follow up/monitor, Encourage PO feedings, Participate in team conference Nutrition Follow-Up Needed Yes Days until [employer] Follow Up Seven days Adult Nutrition Initial Assessment/Plan Adult Nutrition Assessment/Plan 01/31/2024 14:22 EDT Transition of Care Note Transition of Care sent from [facility] 01/31/2024 14:00 EDT Hand Right 01/30/2024 20 [...] On and Limits Checked Nail Bed Color [place] Capillary Refill < 2 seconds Heart Rhythm [...] Description Normal for ethnicity Mucous Membrane Color [place] Mucous Membrane Description Moist Hand Right 01/30/2024 [...] On and Limits Checked Nail Bed Color [place] Capillary Refill < 2 seconds Heart Rhythm [...] intact Skin Turgor Non-Elastic Mucous Membrane Color [place] Mucous Membrane Description Moist Continuous IV Infusions [...] Response Luis Felipe Spontaneously Best Motor Response Chelsea Obeys simple commands Best Verbal Response Luis Felipe Oriented [place] Coma Score 15 CLARA Yes Left Pupil [...] On and Limits Checked Nail Bed Color [place] Capillary Refill < 2 seconds Heart Rhythm Irregular Pretibial edema Bilateral Edema Ratin+ trace/2mm Cardiac Rhythm Atrial fibrillation Monitoring Lead II, V6/MCL6 Alarms On and Functional Yes Respirations Unlabored Respi (more content not included)... [id number] NoteSINUS RHYTHM IVCD MISSING LEAD(S): V1,V2,V3,V4,V5 Electronic Signature: MOY WATTS MD 02/01/2024 11:10:55[facility] 09-04-2024 Cardiology Consult note Date of Service [...] anxiety and gout who initially presented to [facility] on 01/30/2024 for shortness of breath and [...] not tolerate Cardizem drip. Patient transferred to [facility] for further management. Placed on Levophed. [...] (s): 1.87 H Assessment/Plan A-fib with RVR (HSL3CA1-VTAl 2) Near syncopal episode Tachycardia mediated cardiomyopathy [...] Will continue to follow. Patient seen with medication aide Dr. Hartley who agreed with plan. Please [...] MICHELLE HENRY MD on 01/31/2024 12:53 PM [facility] [id number] Note* Exam Date Time Procedure Performing Provider Status 01/31/24 4:20 PM Echocardiogram, Adult - CV Auth (Verified) [facility] 09-04-2024 Note. MICRO - Microbiology PROCEDURE: Blood [...] Locations *1: This test was performed at: [facility], [address] [place] [address], [facility] , [facility] ([place])01-31-2024 Note. MICRO - Microbiology PROCEDURE: Blood Culture [...] Locations *1: This test was performed at: [facility], [address] [place] [address], [facility] , [facility] ([place])01-31-2024 Evaluation + Plan noteExtracted from: Title:History and [...] prophylactically got a dose of ceftriaxone at [place]. We will continue with prophylactic ceftriaxone dose [...] atrial fibrillation with rapid ventricular rate at [facility] admitted to the ICU overnight started on [...] Appointment Date:02/13/2024 03:30:00 PM Scheduled Provider:ISADORA CORREA Location:[facility] Appointment Type: Wellness Annual w/Labs Diagnostic Tests Pending * Culture Respiratory with Gram Stain 01/31/24 * APTT 02/01/24 Future Scheduled Tests Laboratory* Basic Metabolic Panel 04/01/23 * Prostate Specific Antigen 02/07/24 * A1C Hemoglobin 02/07/24 * Lipid Profile 02/07/24 * Complete Metabolic Panel 02/07/24 [facility] 09-04-2024 History and physical note Date of [...] evaluated On arrival to the ER at [place], patient was febrile 37.4, tachycardic 133, tachypneic 21, BP 90/76, was saturating 96% on room air. Labs done at [place] 01/30/2024 revealed pO2 51 on the gases [...] prophylactically got a dose of ceftriaxone at [place].We will continue with prophylactic ceftriaxone dose as [...] CINDY HERNANDEZ MD on 01/31/2024 08:06 AM [facility] [id number] Cardiology Consult note Date of Service 01/31/2024 [...] anxiety and gout who initially presented to [facility] on 01/30/2024 for shortness of breath and [...] not tolerate Cardizem drip. Patient transferred to [facility] for further management. Placed on Levophed. [...] (s): 1.87 H Assessment/Plan A-fib with RVR ([id number]-EEGs 2) Near syncopal episode Tachycardia mediated cardiomyopathy [...] Will continue to follow. Patient seen with medication aide Dr. Hartley who agreed with plan. Please [...] MICHELLE HENRY MD on 01/31/2024 12:53 PM [facility] [id number] NoteATRIAL FIBRILLATION LAD, CONSIDER LEFT ANTERIOR FASCICULAR BLOCK LOW VOLTAGE, PRECORDIAL LEADS BORDERLINE T ABNORMALITIES, INFERIOR LEADS BORDERLINE PROLONGED QT INTERVAL Electronic Signature: MOY WATTS MD 02/01/2024 11:10:[address] [place] [address] 09-04-2024 Note. MICRO - Microbiology PROCEDURE: Blood [...] Locations *1: This test was performed at: [address], [address] [place], [place] [address]64001-31-2024 Note. MICRO - Microbiology PROCEDURE: Blood Culture [...] Locations *1: This test was performed at: [address], [address] [place], [place] [address]64[address]-31-2024 History and physical note Date of Service [...] evaluated On arrival to the ER at [place], patient was febrile 37.4, tachycardic 133, tachypneic 21, BP 90/76, was saturating 96% on room air. Labs done at [place] 01/30/2024 revealed pO2 51 on the gases [...] prophylactically got a dose of ceftriaxone at [place].We will continue with prophylactic ceftriaxone dose as [...] CINDY HERNANDEZ MD on 01/31/2024 08:06 AM [facility] [id number] Note ORIGINAL EXAMINATION: CT OF THE HEAD [...] Sign Date: 01/30/2024 10:16:46 PM Ordering Provider: [facility]09-03-2024 Note ORIGINAL EXAMINATION: ONE XRAY VIEW OF [...] Sign Date: 01/30/2024 9:28:12 PM Ordering Provider: [facility]09-03-2024 NoteAtrial flutter Left anterior fascicular block Borderline low voltage, extremity leads Abnormal R-wave progression, late transition Borderline ST depression, lateral leads Prolonged QT interval Baseline wander in lead(s) V3,V5 Electronic Signature: MD SAMY JONES MD 01/30/2024 21:01:46[facility] 03-13-2024 Hospital Discharge instructions Patient Education 08/09/2023 [...] get worse or if new symptoms appear. 5194-8769 [employer]. [address] [place] [address], [place] [address]. All rights reserved. This information is not intended as a substitute for professional medical care. Always follow yourhealthcare professional's instructions. Follow Up Care 08/09/2023 21:02:01 With:ISADORA CORREA Address: [address] [place] [address]- [phone] Business (1) When:5-7 days Comments:Use warm compresses, Tylenol as discussed, return if any worsening or concerning symptoms. Follow-up closely with your doctor. [facility] 03-13-2024 Note Discharge Instructions Thank you for allowing [facility] to assist you with your healthcare needs. [...] with your doctor. Where: [address] [place] [address] [phone] Business (1) Allergies NKA Medications Please ask [...] get worse or if new symptoms appear. 6741-4567 [employer]. [address] [place] [address], [place] [address]. All rights reserved. This information is not intended as a substitute for professional medical care. Always follow yourhealthcare professional's instructions. Additional Information VACCINATE! IT SAVES LIVES! Members of the community who have not yet received the COVID-19 vaccine and would like to receive it can visit one of [facility] vaccine clinics. There are many vaccine clinic locations within the [facility]. For locations and available times, please visit www.[email or web address]/. It is important to note that some COVID mobile vaccine clinics are held outdoors and may be canceled in rainy or stormy conditions. To learn more about pediatric vaccinations (ages 5-11), we invite you to visit the [facility] webpage. https://www.what3wordss.org/pages/5314-Blnnp-Hkeduqwzlct-Yzvuoumvyz-Kzvms-Shn stions.htmlTo learn more about the COVID-19 vaccine, we invite you to visit the CDC website for a list of frequently asked questions. https://www.cdc.gov/coronavirus/2019-ncov/vaccines/faq.html [facility] Access Instructions: Stay connected with your healthcare team and access your personal medical information anytime with the [employer] Patient Portal. If you would like a full copy of your medical records please contact the [facility] Medical Records Department Monday through Monday between 8a.m. and 4:30p.m. Please follow the directions below to access the portal: 1.Access the email account you provided upon registration to the hospital.2.Look for an invitation email from [facility].3.Open the email and access the invitation link: Accept Invitation to [employer]4.Fill in the required orr to create your account. Sign into [email or web address] with your username and password that you [...] you will allow to register on the [employer] Patient Portal for access to your information. You can also access the [employer] Patient Portal on the [employer] frida. Simply click on Health Records under Process Relations and then click on the [employer] logo. HOW TO SAFELY DISPOSE OF PRESCRIPTION [...] Call your local pharmacy or go to http://Cibando.Pure Storage/[email or web address] to find one close to you.3.Make use of household items: Use cat litter or old coffee grounds to dispose medications if other options arenot available. Mix your drugs with these household products, seal them in an airtight container andthrow it into the garbage. Call [facility]: [phone] to be sure your drugs can be [...] aware that I should contact my doctor. Patient/Therapist'S Assistant Signature: Date/Time: Relationship to Patient: Witness Name/Signature: Date/Time: [facility]01-16-2024 Hospital Discharge instructions Patient Education 06/13/2023 01:01:02 [...] exposed to secondhand smoke. You may use bwqy-lru-qhjmimy medicine to control fever or pain, unless [...] loosen secretions in the nose and lungs. Zjcj-han-iyftzdk cough, cold, and sore-throat medicines will not [...] shortness of breath, or pain with breathing 7316-5416 [employer]. [address] [place] [address], [place] [address]. All rights reserved. This information is not intended as a substitute for professional medical care. Always follow yourhealthcare professional's instructions. Follow Up Care 06/13/2023 00:01:18 With:ISADORA CORREA Address: [address] [place] [address]- [phone] Business (1) When:3-7 days Comments:Schedule appointment for [...] the ED if symptoms worsen. [facility] 01-16-2024 Note Discharge Instructions Thank you for allowing [facility] to assist you with your healthcare needs. [...] ED if symptoms worsen. Where: [place] [address] [phone] Business (1) Allergies NKA Medications Please ask [...] exposed to secondhand smoke. You may use vcjb-jsx-jphpfnt medicine to control fever or pain, unless [...] loosen secretions in the nose and lungs. Nfyr-wie-wxskfdy cough, cold, and sore-throat medicines will not [...] shortness of breath, or pain with breathing [phone] [employer]. [address] [place] [address]. All rights reserved. This information is not intended as a substitute for professional medical care. Always follow yourhealthcare professional's instructions. Additional Information VACCINATE! IT SAVES LIVES! Members of the community who have not yet received the COVID-19 vaccine and would like to receive it can visit one of [facility] vaccine clinics. There are many vaccine clinic locations within the [facility]. For locations and available times, please visit [email or web address]/. It is important to note that some COVID mobile vaccine clinics are held outdoors and may be canceled in rainy or stormy conditions. To learn more about pediatric vaccinations (ages 5-11), we invite you to visit the [facility] webpage. https://www.[facility].org/pages/3685-Ltmoi-Pygyrpwsnsr-Siylajiyyv-Qbphz-Gjj stions.htmlTo learn more about the COVID-19 vaccine, we invite you to visit the CDC website for a list of frequently asked questions. https://www.cdc.gov/coronavirus/2019-ncov/vaccines/faq.html [facility] Access Instructions: Stay connected with your healthcare team and access your personal medical information anytime with the [facility] Patient Portal. If you would like a full copy of your medical records please contact the [facility] Medical Records Department Monday through Monday between 8a.m. and 4:30p.m. Please follow the directions below to access the portal: 1.Access the email account you [facility].2.Look for an invitation email from [facility].3.Open the email and access the invitation link: Accept Invitation to [employer]4.Fill in the required orr to create your account. Sign into [email or web address] with your username and password that you [...] you will allow to register on the [employer] Patient Portal for access to your information. You can also access the [employer] Patient Portal on the Envoy. Simply click on Health Records under Process Relations and then click on the [employer] logo. HOW TO SAFELY DISPOSE OF PRESCRIPTION [...] Call your local pharmacy or go to http://bit.ly/7T0Gh7h to find one close to you.3.Make use of household items: Use cat litter or old coffee grounds to dispose medications if other options arenot available. Mix your drugs with these household products, seal them in an airtight container andthrow it into the garbage. Call [facility]: [phone] to be sure your drugs can be [...] aware that I should contact my doctor. Patient/Therapist'S Assistant Signature: Date/Time: Relationship to Patient: Witness Name/Signature: Date/Time: [facility]01-16-2024 Note ORIGINAL EXAMINATION: ONE XRAY VIEW OF [...] Date: 06/13/2023 12:39:50 AM Ordering Provider: [facility]01-12-2024 Hospital Discharge instructions Patient Education 06/09/2023 20:03:33 Atrial Fibrillation, Bewc-at-Jmon Atrial Fibrillation Atrial fibrillation is a type [...] Follow these instructions at home: Medicines Take eqbz-bcl-nuqupfz and prescription medicines only as told by [...] 02/21/2009 Document Revised: 07/19/2018 Document Reviewed: 07/06/2018 [email or web address] Patient Education 2020 [employer]. Follow Up Care 06/06/2023 16:24:50 With:ISADORA CORREA Address: [address] [place] [address]- [phone] When: Unknown Comments:PLEASE CALL THIS OFFICE TO SCHEDULE A HOSPITAL FOLLOW UP APPOINTMENT With:MOY WATTS MD Address: [address] [place] [address] [address] [place], [place] [address]- [phone] When:07/17/2023 15:15:00 Comments:THIS APPOINTMENT WILL BE WITH ZHOU ESPINOSA CNP [facility] 01-12-2024 Note Discharge Instructions Thank you for allowing [facility] to assist you with your healthcare needs. The following is importantdischarge information regarding your hospital visit. Your Care Team ISADORA CORREA Your Diagnosis Shortness of breath What to do next Scheduled Follow-Up Appointments Appointment Type When With Where Contact InformationPC OV 06/20/2023 02:30 PM EST ISADORA CORREA [facility] OV 07/17/2023 03:15 PM EST ZHOU ESPINOSA [facility] Follow Up Appointments Follow Up with MOY WATTS MD When 07/17/2023 03:15 PM EST Why: THIS APPOINTMENT WILL BE WITH ZHOU ESPINOSA CNP Where: [address] [place] [address] [address] [place], [place] [id number]- [phone] Follow Up with ISADORA CORREA When Why: PLEASE CALL THIS OFFICE TO SCHEDULE A HOSPITAL FOLLOW UP APPOINTMENT Where: [address] [facility] [place] [address]- [phone] The Following Activity and Diet Have Been [...] day Refills: 2 Pickup at [id number] Changed FLUoxetine (FLUoxetine 10 mg oral capsule) 1 cap by mouth Once a day Pickup at [facility] #[id number] Unchanged allopurinol (allopurinol 100 mg oral tablet) [...] Daily at bedtime Pharmacy Information [facility][id number]: [address] [place] [address] [phone] Please take this list to your next doctor s visit. Bring all medications you take, including over the counter medications, herbals and other supplements with you to your doctor s visit. Patients and families are reminded to discard old lists and to update any records with all medication providers or retail pharmacies. Medication Leaflets dofetilide (mathias FET i lide) Tikosyn What [...] may report side effects to FDA at 4-934-ITN-6445. What other drugs will affect dofetilide? Other drugs may interact with dofetilide, including prescription and otli-aig-kansyvo medicines, vitamins, and herbal products. Tell each [...] to ensure that the information provided by [employer]. ('Multum') is accurate, up-to-date, and complete, but no guarantee is made to that effect. Drug information contained herein may be time sensitive. [employer] information has been compiled for use by healthcare practitioners and consumers in the [place] and therefore [employer] does not warrant that uses outside of the [place] are appropriate, unless specifically indicated otherwise. [employer] drug information does not endorse drugs, diagnose patients or recommend therapy. [employer] drug information isan informational resource designed to [...] effective or appropriate for any given patient. [employer] does not assume any responsibility for any aspect of healthcare administered with the aid of information [employer] provides. The information contained herein is not intended to cover all possible uses, directions, precautions, warnings, drug interactions, allergic reactions, or adverse effects. If you have questions about the drugs you are taking, check with your doctor, nurse or pharmacist. Copyright 3095-7168 Event[employer]or[employer]. Version: 4.01. Revision Date: 09/09/2015. Education Materials [...] Follow these instructions at home: Medicines Take sdhk-cms-ucxuhwo and prescription medicines only as told by [...] 02/21/2009 Document Revised: 07/19/2018 Document Reviewed: 07/06/2018 [employer] Patient Education 2020 sportif225 Inc. Additional Information VACCINATE! IT SAVES LIVES! Members of the community who have not yet received the COVID-19 vaccine and would like to receive it can visit one of [facility] vaccine clinics. There are many vaccine clinic locations within the [facility]. For locations and available times, please visit [email or web address]/. It is important to note that some COVID mobile vaccine clinics are held outdoors and may be canceled in rainy or stormy conditions. To learn more about pediatric vaccinations (ages 5-11), we invite you to visit the [facility] webpage. https://www.[email or web address].org/pages/2563-Qhpum-Schjkiblbyz-Ngxugtdzdj-Wygbv-Pxx stions.htmlTo learn more about the COVID-19 vaccine, we invite you to visit the CDC website for a list of frequently asked questions.https://www.cdc.gov/coronavirus/2019-ncov/vaccines/faq.html [employer] Patient Portal Access Instructions: Stay connected with your healthcare team and access your personal medical information anytime with the [employer]We[employer] Patient Portal. Please follow the directions below to create your iWeebo account: 1.Access the email account you provided upon registration to the hospital/physician office.2.Look for an invitation email from [facility].3.Open the email and access the invitation link: AcceptInvitation to [employer].4.Fill in the required orr to create your account. To access your account, visit [email or web address]. Click the blue button labeled Access Patient [...] who you will allowto register on the [facility] Patient Portal for access to your information. You can also access the [facility] Patient Portal on the Larry Anywhere frida. Simply click on Patient Portal and then log into your account. If you would like to receive a full copy of your medical records, please contact the [facility] Medical Records Department by calling [phone], Monday through Monday between 8 a.m. and [...] Call your local pharmacy or go to [email or web address] to find one close to you.3.Make use of household items: Use cat litter or old coffee grounds to dispose medications if other options arenot available. Mix your drugs with these household products, seal them in an airtight container andthrow it into the garbage. Call [facility]: [phone] to be sure your drugs can be [...] COPY. Signatures Patient Education Materials Atrial Fibrillation, Zcgf-lu-Qrhr Medication Leaflets Selina My discharge plan and instructions have been reviewed and explained to me and I,SOCORRO KELLEY understand my current condition and have read and understand these discharge instructions. I have received awritten copy of the plan/instructions. If I have questions, I am aware that I should contact my doctor. Patient/Therapist'S Assistant Signature: Date/Time: Relationship to Patient: Witness Name/Signature: Date/Time: [id number] Discharge summary Date of Service 06/09/23 Discharge Diagnosis Other persistent atrial fibrillation (I48.19 - ICD-10-CM) Encounter for therapeutic drug level monitoring (Z51.81 - ICD-10-CM) Morbid (severe) obesity due to excess calories (E66.01 - ICD-10-CM) Hypertensive heart disease without heart failure (I11.9 - ICD-10-CM) Gastro-esophageal reflux disease without esophagitis (K21.9 - ICD-10-CM) long-term (current) use of anticoagulants (Z79.01 - ICD-10-CM) Shortness of breath (R06.02 - ICD-10-CM) Additional Orders: Ordered: Communication Order (continuous),06/09/23 12:44:00 EST, ok to DC home after 5th dose of tikosyn this evening as long as QT is reviewed by motion picture printer fellow, Constant order Ordered: Discharge,06/09/23 12:44:00 EST, [...] qDay, # 30 cap(s), 2 Refill(s), Pharmacy: [facility] #[id number], 176, cm, 06/07/23 13:36:00 EST, Height, kg, 06/07/23 13:36:00 EST, Dosing Weight Ordered: Tikosyn 250 mcg oral capsule,Dose : 250 mcg = 1 cap(s), Oral, BID, # 60 cap(s), 2 Refill(s), Pharmacy: [facility] #[id number], 176, cm, 06/07/23 13:36:00 EST, Height, kg, [...] When 07/07/2023 01:00 PM EST [facility] [address] [place] [address]- [phone] Follow Up with ISADORA CORREA APRN-ASSISTANT CONTROLLER When Why: PLEASE CALL THIS OFFICE TO SCHEDULE A HOSPITAL FOLLOW UP APPOINTMENT Where: [address] [place] [address]- [phone] Follow Up Appointments No qualifying data available. Follow Up Labs/Studies Discharge Labs No Follow-up Labs Discharge Studies No Follow-up Studies Discharge Diet Discharge Diet - Ordered -- Type of Diet: Cardiac, Sodium limit: 2 gm, 06/09/23 12:44:00 EST Discharge Activity No qualifying data available. Condition on Discharge stable Discharge Disposition home Digitally Signed by AMELIA RENAE MD on 06/09/2023 12:53 PM [id number] Discharge summary Date of Service 06/09/23 Discharge Diagnosis Other persistent atrial fibrillation (I48.19 - ICD-10-CM) Encounter for therapeutic drug level monitoring (Z51.81 - ICD-10-CM) Morbid (severe) obesity due to excess calories (E66.01 - ICD-10-CM) Hypertensive heart disease without heart failure (I11.9 - ICD-10-CM) Gastro-esophageal reflux disease without esophagitis (K21.9 - ICD-10-CM) long-term (current) use of anticoagulants (Z79.01 - ICD-10-CM) Shortness of breath (R06.02 - ICD-10-CM) Additional Orders: Ordered: Communication Order (continuous),06/09/23 12:44:00 EST, ok to DC home after 5th dose of tikosyn this evening as long as QT is reviewed by motion picture printer fellow, Constant order Ordered: Discharge,06/09/23 12:44:00 EST, [...] qDay, # 30 cap(s), 2 Refill(s), Pharmacy: [facility] #[id number], 176, cm, 06/07/23 13:36:00 EST, Height, kg, 06/07/23 13:36:00 EST, Dosing Weight Ordered: Tikosyn 250 mcg oral capsule,Dose : 250 mcg = 1 cap(s), Oral, BID, # 60 cap(s), 2 Refill(s), Pharmacy: [facility] #[id number], 176, cm, 06/07/23 13:36:00 EST, Height, kg, [...] Where: [address] [facility] [place] [address]- [phone] Follow Up with ISADORA CORREA When Why: PLEASE CALL THIS OFFICE TO SCHEDULE A HOSPITAL FOLLOW UP APPOINTMENT Where: [address] [place], [place] [id number]- [phone] Follow Up Appointments No qualifying data available. Follow Up Labs/Studies Discharge Labs No Follow-up Labs Discharge Studies No Follow-up Studies Discharge Diet Discharge Diet - Ordered -- Type of Diet: Cardiac, Sodium limit: 2 gm, 06/09/23 12:44:00 EST Discharge Activity No qualifying data available. Condition on Discharge stable Discharge Disposition home Digitally Signed by AMELIA RENAE MD on 06/09/2023 12:53 PM [facility] [id number] NoteSINUS RHYTHM LEFT AXIS DEVIATION LOW VOLTAGE, PRECORDIAL LEADS PROLONGED QT INTERVAL POOR R-WAVE PROGRESSION Electronic Signature: SADE STRAUSS MD 06/09/2023 09:53:23[facility] 01-11-2024 Cardiology Progress note Date of Service [...] AMELIA RENAE MD on 06/08/2023 03:03 PM [facility] [id number] Cardiology Progress note Date of Service 06/08/23 [...] AMELIA RENAE MD on 06/08/2023 03:03 PM [facility] [id number] NoteSINUS RHYTHM LAD, CONSIDER LEFT ANTERIOR FASCICULAR BLOCK LOW VOLTAGE, PRECORDIAL LEADS BORDERLINE PROLONGED QT INTERVAL Poor R wave progression Electronic Signature: SADE STRAUSS MD 06/09/2023 09:53:37[facility] 01-10-2024 NoteSINUS RHYTHM BORDERLINE IVCD WITH LAD LOW VOLTAGE, PRECORDIAL LEADS CONSIDER ANTERIOR INFARCT Electronic Signature: SADE STRAUSS MD 06/08/2023 09:48:12[facility] 01-10-2024 History and physical note Date of [...] 107 ms, QT interval approximately 450 ms. MT interval 184 ms. Renal function, electrolytes pending. [...] AMELIA RENAE MD on 06/07/2023 04:29 PM [facility] [id number] NoteSINUS RHYTHM LAD, CONSIDER LEFT ANTERIOR FASCICULAR BLOCK LOW VOLTAGE, PRECORDIAL LEADS Electronic Signature: SADE STRAUSS MD 06/08/2023 09:47:58[facility] 01-10-2024 History and physical note Date of [...] 107 ms, QT interval approximately 450 ms. MT interval 184 ms. Renal function, electrolytes pending. [...] AMELIA RENAE MD on 06/07/2023 04:29 PM [facility] [id number] Evaluation + Plan noteExtracted from: Title:History and [...] Appointments Appointment Date:06/20/2023 02:30:00 PM Scheduled Provider:ISADORA CORRAE APRN-ASSISTANT CONTROLLER Location:[facility] Appointment Type:PC OV Appointment Date:07/17/2023 03:15:00 PM Scheduled Provider:ZHOU ESPINOSA APRN-ASSISTANT CONTROLLER Location:[facility] Appointment Type:CV OV Future Scheduled Tests Laboratory* Basic Metabolic Panel 04/01/23 * A1C Hemoglobin 06/09/23 * Lipid Profile 06/09/23 * Complete Metabolic Panel 06/09/23 [facility] 01-10-2024 NoteSINUS RHYTHM MARKEDLY POSTERIOR QRS AXIS LOW VOLTAGE, PRECORDIAL LEADS BORDERLINE PROLONGED QT INTERVAL Electronic Signature: SADE STRAUSS MD 06/08/2023 09:47:38[facility] 12-08-2023 Hospital Discharge instructions Patient Education 05/05/2023 [...] in vomit, stools (black or red color) [id number] [employer]. [address] [place] [address], [place] [address]. All rights reserved. This information is not [...] fainting Blood in your stool or urine [employer]. [address] [place] [address]. All rights reserved. This information is not [...] will help ease pain. You may use nihd-cem-eqhtflo pain medicine such as acetaminophen or ibuprofen [...] suddenly or lasts more than an hour [employer]. [address] [place] [address]. All rights reserved. This information is not intended as a substitute for professional medical care. Always follow yourhealthcare professional's instructions. Follow Up Care 05/05/2023 17:11:14 With:ISADORA CORREA Address: [address] [place] [phone] Business (1) When:5-7 days Comments:Follow-up as needed if symptoms or not improving.Limit activity as tolerated.Ice/cold compresses topainful areas.Use Tylenol, Advil or Aleve for pain as needed.Use Sellers as prescribed for severe pain as needed.Take 10 deep breaths on the incentive stridor every hour while awake for the next week as advised.Return to the ED if symptoms worsen. [facility] 12-08-2023 Note Discharge Instructions Thank you for allowing [facility] to assist you with your healthcare needs. [...] or Aleve for pain as needed. Use Sellers as prescribed for severe pain as needed. Take 10 deep breaths on the incentive stridor every hour while awake for the next week as advised. Return to the ED if symptoms worsen. Where: [place] [address]- [phone] Business (1) Allergies NKA Medications Please ask your primary doctor or pharmacist before taking any other medication not listed, including over the counter drugs, herbal medications, vitamins and or supplements as they may interact withyour home medications. What How Much When Why Instructions Last Dose New acetaminophen-hydrocodone (Sellers 325- 5 mg oral tablet) 1 tab(s) [...] cancer screening As directed by provider at [facility]. Unchanged rivaroxaban (Xarelto 20 mg oral [...] SEET a MIN [place] fen and shelley dromurray KOE done) Lortab Elixir, Verdrocet What is the [...] may report side effects to FDA at [phone]. What other drugs will affect acetaminophen and [...] affect acetaminophen and hydrocodone, including prescription and ygwy-gzx-meyobdi medicines, vitamins, and herbal products. Not all [...] to ensure that the information provided by [employer]. ('Multum') is accurate, up-to-date, and complete, but no guarantee is made to that effect. Drug information contained herein may be time sensitive. [employer] information has been compiled for use by healthcare practitioners and consumers in the [place] and therefore [employer] does not warrant that uses outside of the [place] are appropriate, unless specifically indicated otherwise. [employer] drug information does not endorse drugs, diagnose patients or recommend therapy. [employer] drug information isan informational resource designed to [...] effective or appropriate for any given patient. [employer] does not assume any responsibility for any aspect of healthcare administered with the aid of information [employer] provides. The information contained herein is not intended to cover all possible uses, directions, precautions, warnings, drug interactions, allergic reactions, or adverse effects. If you have questions about the drugs you are taking, check with your doctor, nurse or pharmacist. Copyright 7975-9219 [employer]. Version: 19.. Revision Date: 01/16/2023. Education Materials [...] in vomit, stools (black or red color) 6573-7154 [employer]. [address] [place] [address], [place] [address]. All rights reserved. This information is not [...] fainting Blood in your stool or urine 4213-2093 [employer]. [address] [place] [address], [place] [address]. All rights reserved. This information is not [...] will help ease pain. You may use vmfu-gtk-fgaupjk pain medicine such as acetaminophen or ibuprofen [...] suddenly or lasts more than an hour 0170-0880 [employer]. [address] [place] [address]. All rights reserved. This information is not intended as a substitute for professional medical care. Always follow yourhealthcare professional's instructions. Additional Information VACCINATE! IT SAVES LIVES! Members of the community who have not yet received the COVID-19 vaccine and would like to receive it can visit one of [facility] vaccine clinics. There are many vaccine clinic locations within the [facility]. For locations and available times, please visit www.gettheshot.coronavirus.[place].gov/. It is important to note that some COVID mobile vaccine clinics are held outdoors and may be canceled in rainy or stormy conditions. To learn more about pediatric vaccinations (ages 5-11), we invite you to visit the [facility] webpage. https://www.[facility].org/pages/6539-Lfvvc-Orgohscmkec-Xppccrbync-Yfkjv-Rac stions.htmlTo learn more about the COVID-19 vaccine, we invite you to visit the CDC website for a list of frequently asked questions. https://www.cdc.gov/coronavirus/2019-ncov/vaccines/faq.html [employer] Patient Portal Access Instructions: Stay connected with your healthcare team and access your personal medical information anytime with the [employer] Patient Portal. If you would like a full copy of your medical records please contact the [facility] Medical Records Department Monday through Monday between 8a.m. and 4:30p.m. Please follow the directions below to access the portal: 1.Access the email account you [facility].2.Look for an invitation email from [facility].3.Open the email and access the invitation link: Accept Invitation to [employer] [employer]4.Fill in the required orr to create your account. Sign into [email or web address] with your username and password that you [...] you will allow to register on the [facility] Patient Portal for access to your information. You can also access the [facility] [employer] Patient Portal on the Envoy. Simply click on Health Records under Process Relations and then click on the Lifesquare logo. HOW TO SAFELY DISPOSE OF PRESCRIPTION [...] Call your local pharmacy or go to [email or web address] to find one close to you.3.Make use of household items: Use cat litter or old coffee grounds to dispose medications if other options arenot available. Mix your drugs with these household products, seal them in an airtight container andthrow it into the garbage. Call [facility]: [phone] to be sure your drugs can be [...] aware that I should contact my doctor. Patient/Therapist'S Assistant Signature: Date/Time: Relationship to Patient: Witness Name/Signature: Date/Time: [facility]12-08-2023 Note ORIGINAL EXAMINATION: 2 XRAY VIEWS OF [...] Sign Date: 05/05/2023 9:08:30 PM Ordering Provider: [facility]12-08-2023 Note ORIGINAL EXAMINATION: ONE XRAY VIEW [...] Sign Date: 05/05/2023 9:17:04 PM Ordering Provider: [facility]11-06-2023 Note * Exam Date Time Procedure Performing Provider Status 04/03/23 9:43 AM Echocardiogram, Adult ([facility]) Auth (Verified) [facility] 07-28-2023 Hospital Discharge instructions Patient Education 12/23/2022 [...] Document Reviewed: 05/16/2014 ExitCare Patient Information 2015 Client Outlook. This information is not intended to replace [...] before eating solid foods. General instructions Take jegx-euq-cnnmgry and prescription medicines only as told by [...] 09/04/2016 Document Revised: 08/13/2018 Document Reviewed: 09/04/2016 [email or web address] Patient Education 2020 Dazo. Follow Up Care 12/07/2022 09:52:07 With:ZHOU ESPINOSA APRN-ASSISTANT CONTROLLER Address: [address] [facility] [address] [facility] [place] [address] [phone] When: Unknown Comments:Follow-up as scheduled [facility] 07-28-2023 Note Discharge Instructions Thank you for allowing [facility] to assist you with your healthcare needs. The following is importantdischarge information regarding your hospital visit. Your Care Team ISADORA CORREA Your Diagnosis AF (atrial fibrillation) What to do next Scheduled Follow-Up Appointments [facility] 02:30 PM EDT ISADORA CORREA [facility] Follow Up Appointments Follow Up with ZHOU ESPINOSA When Why: Follow-up as scheduled Where: [address] [facility] [place] [address]- [phone] Allergies NKA Medications Please ask your primary doctor or pharmacist before taking any other medication not listed, including over the counter drugs, herbal medications, vitamins and or supplements as they may interact withyour home medications. What How Much When Instructions Last Dose New losartan (losartan 100 mg oral tablet) 1 tab(s) by mouth Once a day Refills: 6 Pickup at [facility] #[id number] Changed metoprolol (Toprol-XL 50 mg oral tablet, extended release) 1 tab(s) by mouth Two (2) times a day Pickup at [facility] #[id number] Unchanged allopurinol (allopurinol 100 mg oral tablet) [...] a day Duration: 14 Days Pharmacy Information [facility] #[id number]: [address], [place] [phone] What How Much When Comments Stop Taking [...] Document Reviewed: 05/16/2014 ExitCare Patient Information 2015 Client Outlook. This information is not intended to replace [...] before eating solid foods. General instructions Take ntbg-qbw-wdflnre and prescription medicines only as told by [...] Document Reviewed: 09/04/2016 Elsevier Patient Education 2020 sportif225 Inc. Additional Information VACCINATE! IT SAVES LIVES! Members of the community who have not yet received the COVID-19 vaccine and would like to receive it can visit one of [facility] vaccine clinics. There are many vaccine clinic locations within the [facility]. For locations and available times, please visit [email or web address]/. It is important to note that some COVID mobile vaccine clinics are held outdoors and may be canceled in rainy or stormy conditions. To learn more about pediatric vaccinations (ages 5-11), we invite you to visit the [employer] [employer] webpage. https://www.what3wordss.org/pages/7438-Topck-Royavlgaajm-Wzprfphaqe-Ngmos-Vsa stions.htmlTo learn more about the COVID-19 vaccine, we invite you to visit the CDC website for a list of frequently asked questions.https://www.cdc.gov/coronavirus/2019-ncov/vaccines/faq.html [employer] Patient Portal Access Instructions: Stay connected with your healthcare team and access your personal medical information anytime with the [employer] Patient Portal. Please follow the directions below to create your iWeebo account: 1.Access the email account you provided upon registration to the hospital/physician office.2.Look for an invitation email from [facility].3.Open the email and access the invitation link: AcceptInvitation to [employer]Weebo.4.Fill in the required orr to create your account. To access your account, visit [email or web address]. Click the blue button labeled Access Patient [...] who you will allowto register on the [employer] Patient Portal for access to your information. You can also access the [facility] Patient Portal on the [facility] frida. Simply click on Patient Portal and then log into your account. If you would like to receive a full copy of your medical records, please contact the [facility] Medical Records Department by calling [phone], Monday through Monday between 8 a.m. and [...] Call your local pharmacy or go to [email or web address] to find one close to you.3.Make use of household items: Use cat litter or old coffee grounds to dispose medications if other options arenot available. Mix your drugs with these household products, seal them in an airtight container andthrow it into the garbage. Call [facility]: [phone] to be sure your drugs can be [...] aware that I should contact my doctor. Patient/Therapist'S Assistant Signature: Date/Time: Relationship to Patient: Witness Name/Signature: Date/Time: [facility]07-28-2023 Anesthesiology Consult note Patient: SOCORRO KELLEY Age: 52 years Sex: Male : 1970 Associated Diagnoses: None Author: BRAULIO WRIGHT APRN-[employer] BACON TIER Assessment Postanesthesia assessment Vitals: Vital signs from [...] WRIGHT on 12/23/2022 07:23 AM [facility]07-28-2023 Anesthesiology Consult note Patient: SOCORRO KELLEY Age: [...] Problem list: Medical Anxiety / SNOMED CT 25485589 / Confirmed Atopic dermatitis / SNOMED CT 06202643 / Confirmed BMI 45.0-49.9, adult / SNOMED CT 5245642229 / Confirmed Diabetes mellitus / SNOMED CT 227449757 / Confirmed Hypertension / SNOMED CT 2842026037 / Confirmed Insomnia / SNOMED CT 487626398 / Confirmed Morbid obesity / SNOMED CT 434580055 / Confirmed Chewing tobacco nicotine dependence / SNOMED CT 94040028 / Confirmed Obstructive sleep apnea / SNOMED CT 606767469 / Confirmed Screening for ischemic heart disease / SNOMED CT 987725171 / Confirmed Persistent atrial fibrillation / SNOMED CT 0452391530 / Confirmed Prediabetes / SNOMED CT 7381836716 / Confirmed, Active Problems (16) Anxiety Atopic [...] History: History is unknown. Procedure history: Elbow ([id number]). Comments: 07/11/2022 8:26 SHAHEEN Nunez bursitis - right Social History Social & [...] patch - 12/13/2022 14:44 - Sue Mcgregor LPN Nutrition/Health 12/23/2022 Caffeine intake amount: pop 3 daily . Physical Examination Vital Signs 12/23/2022 6:34 EDT Temperature Temporal Artery 35.3 DegC Peripheral Pulse Rate 85 bpm Respiratory Rate 20 br/min Systolic Blood Pressure Non-Invasive 103 mmHg Diastolic Blood Pressure Non-Invasive 76 mmHg Vital Signs(last 24 hrs) Last Charted Resp Rate 20 br/min (DEC 23 06:34) VWU108 mmHg (DEC 23 06:34) DBP76 mmHg (DEC 23 06:34) Measurements from flowsheet : Measurements 12/23/2022 6:37 EDT Height 175.3 cm [place] Body Weight 70.74 kg 12/23/2022 6:34 EDT Height 175.3 cm Admission Weight 144 kg [place] Body Weight 70.74 kg Admission Body Mass [...] Surgeon SN - CAt - Role Performed Annealing Furnace Tender 1 SN - CAt - Role Performed CANADIAN BACON TIER 12/23/2022 6:49 EDT Wrist Left 12/23/2022 20 [...] Person #1 We May Share YAW OSPINA [phone] Designated Person #1 Relationship Sibling Height 175.3 cm [place] Body Weight 70.74 kg Status N/A Sensory [...] evident Teaching Method Explanation Preferred Spoken Language [place] Preferred Written Language [place] Information Given by Patient Patient's Current Physicians Patient's Current Physicians Discharge To, Anticipated Home independently Prev Test Positive/Diagnosis w/COVID-19 No Current Quarantine/Isolated any Illness No Any Contact with Sick Animals/Birds No Traveled Anywhere in Last 30 Days No N/A Personal Devices, Patient Valuables None Admission Note-Nursing Procedure/Therapy Intake 12/23/2022 6:34 EDT Height 175.3 cm Admission Weight 144 kg [place] Body Weight 70.74 kg Admission Body Mass [...] Ordered (In Progress) . Assessment and Plan [place] [employer] Anesthesiologists (ASA) physical status classification: Class III. Anesthetic Preoperative Plan Anesthetic technique: MAC. Informed consent: signed by patient. Digitally Signed by BRAULIO WRIGHT APRN-CANADIAN BACON TIER on 12/23/2022 07:21 AM [facility] [id number] Hospital Discharge instructions Patient Education 10/27/2022 06:39:29 [...] Swelling, pain or redness in one leg [phone] [employer]. [address] [place] [address]. All rights reserved. This information is not [...] very fast heart rate Loss of consciousness [phone] [employer] [place] [address]. All rights reserved. This information is not intended as a substitute for professional medical care. Always follow yourhealthcare professional's instructions. Follow Up Care 10/27/2022 05:02:35 With:ISADORA CORREA Address: [address] [facility] [place] [address]- [phone] Business (1) When:2-4 days Comments:Follow close with your doctor, continue medications, return if any worsening or concerning symptoms. [facility] 06-01-2023 Note Discharge Instructions Thank you for [...] concerning symptoms. Where: [address] [facility] [place] [address]- [phone] Business (1) Allergies NKA Medications Please ask [...] pain or redness in one leg [employer]. [address] [place] [address]. All rights reserved. This information is not [...] fast heart rate Loss of consciousness [employer]. [address] [place] [address]. All rights reserved. This information is not intended as a substitute for professional medical care. Always follow yourhealthcare professional's instructions. Additional Information VACCINATE! IT SAVES LIVES! Members of the community who have not yet received the COVID-19 vaccine and would like to receive it can visit one of [facility] vaccine clinics. There are many vaccine clinic locations within the State. For locations and available times, please visit www.gettheshot.coronavirus.[place].gov/. It is important to note that some COVID mobile vaccine clinics are held outdoors and may be canceled in rainy or stormy conditions. To learn more about pediatric vaccinations (ages 5-11), we invite you to visit the [facility] webpage. https://www.[facility].org/pages/6159-Zcdwy-Wbmsgzkrwme-Eqxvcvgale-Owfwa-Cql stions.htmlTo learn more about the COVID-19 vaccine, we invite you to visit the CDC website for a list of frequently asked questions. https://www.cdc.gov/coronavirus/2019-ncov/vaccines/faq.html [facility] [employer] Patient Portal Access Instructions: Stay connected with your healthcare team and access your personal medical information anytime with the [facility] Patient Portal. If you would like a full copy of your medical records please contact the [facility] Medical Records Department Monday through Monday between 8a.m. and 4:30p.m. Please follow the directions below to access the portal: 1.Access the email account you provided upon registration to the hospital.2.Look for an invitation email from [facility].3.Open the email and access the invitation link: Accept Invitation to [facility]4.Fill in the required orr to create your account. Sign into www.Appsperse with your username and password that you [...] you will allow to register on the [facility] Patient Portal for access to your information. You can also access the [facility] [employer] Patient Portal on the [employer] frida. Simply click on Health Records under Process Relations and then click on the Lifesquare logo. HOW TO SAFELY DISPOSE OF PRESCRIPTION [...] Call your local pharmacy or go to http://Cibando.Pure Storage/1Y3Qf7p to find one close to you.3.Make use of household items: Use cat litter or old coffee grounds to dispose medications if other options arenot available. Mix your drugs with these household products, seal them in an airtight container andthrow it into the garbage. Call [facility]: [phone] to be sure your drugs can be [...] aware that I should contact my doctor. Patient/Therapist'S Assistant Signature: Date/Time: Relationship to Patient: Witness Name/Signature: Date/Time: [facility]06-01-2023 Note ORIGINAL EXAMINATION: ONE XRAY VIEW OF [...] AM Ordering Provider: OLLIE BROOKE [facility]06-01-2023 Note ORIGINAL EXAMINATION: ONE XRAY VIEW OF [...] by: Darnell Molina MD Preliminary Report By: Orvilleuogtom Isaac Electronically signed By Darnell Molina MD Dictated Date: 10/27/2022 5:58:41 AM Prelim Date: 10/27/2022 6:03:50 AM Sign Date: 10/27/2022 6:14:45 AM Ordering Provider: [facility]05-30-2023 Hospital Discharge instructions Patient Education 10/25/2022 01:25:48 [...] your body to your neck and face. [phone] [employer]. [address] [place] [address]. All rights reserved. This information is not [...] vision Extreme drowsiness, confusion, dizziness, or fainting 2337-[address] [employer] [place] [address], [place] [address]. All rights reserved. This information is not [...] Swelling, pain or redness in one leg 5887-0349 [employer]. [address] [place] [address]. All rights reserved. This information is not [...] veins, fluid leaks out into the tissues. Snyder then causes that fluid to move to [...] away Feeling much more tired than usual 9634-8655 [employer]. [address] [place] [address]. All rights reserved. This information is not intended as a substitute for professional medical care. Always follow [facility] professional's instructions. Follow Up Care 10/24/2022 23:09:33 With:Call Physician Referral Address:Unknown When:2-4 days Comments:Call for referral to establish a primary care doctor you can see on a regular basis. With:SADE STRAUSS Address: [address] [facility] [address] [facility] [place] [address] [phone] Business (1) When:2-4 days Comments:Schedule an appointment to establish a medication aide you can see on a regular basis.Double your doseof Lasix from 20 mg once a day to 20 mg twice a day.Continue all other routine medications including the ones you were recently prescribed from [place].Use potassium supplement and sleep aid (trazodone) as prescribed.Return to the ED if symptoms worsen. [facility] Discharge Instructions Thank you for allowing [facility] to assist you with your healthcare needs. [...] Why: Schedule an appointment to establish a medication aide you can see on a regular basis. Double your dose of Lasix from 20 mg once a day to 20 mg twice a day. Continue all other routine medications including the ones you were recently prescribed from [place]. Use potassium supplement and sleep aid (trazodone) as prescribed. Return to the ED if symptoms worsen. Where: [address] [facility] [address] [facility] [place] [address]- [phone] Business (1) Allergies NKA Medications Please ask [...] may report side effects to FDA at 7-158-AXJ-6408. What other drugs will affect potassium chloride? Tell your doctor about all your other medicines, especially: medicine to prevent organ transplant rejection; a diuretic or 'water pill'; or heart or blood pressure medication. This list is not complete. Other drugs may affect potassium chloride, including prescription and qjbz-ubc-rsnxmsz medicines, vitamins, and herbal products. Not all [...] to ensure that the information provided by [employer]. ('Multum') is accurate, up-to-date, and complete, but no guarantee is made to that effect. Drug information contained herein may be time sensitive. [employer] information has been compiled for use by healthcare practitioners and consumers in the [place] and therefore [employer] does not warrant that uses outside of the [place] are appropriate, unless specifically indicated otherwise. [employer] drug information does not endorse drugs, diagnose patients or recommend therapy. [employer] drug information isan informational resource designed to [...] effective or appropriate for any given patient. [employer] does not assume any responsibility for any aspect of healthcare administered with the aid of information [employer] provides. The information contained herein is not intended to cover all possible uses, directions, precautions, warnings, drug interactions, allergic reactions, or adverse effects. If you have questions about the drugs you are taking, check with your doctor, nurse or pharmacist. Copyright 8700-6933 [employer]. Version: 14.01. Revision Date: 10/24/2019. trazodone (TRAZ [...] may report side effects to FDA at 5-236-FRQ-2344. What other drugs will affect trazodone? Using [...] drugs may affect trazodone. This includes prescription afixmja-pvx-atukufj medicines, vitamins, and herbal products. Not all [...] to ensure that the information provided by [employer]. ('Multum') is accurate, up-to-date, and complete, but no guarantee is made to that effect. Drug information contained herein may be time sensitive. [employer] information has been compiled for use by healthcare practitioners and consumers in the [place] and therefore [employer] does not warrant that uses outside of the [place] are appropriate, unless specifically indicated otherwise. [employer] drug information does not endorse drugs, diagnose patients or recommend therapy. [employer] drug information isan informational resource designed to [...] effective or appropriate for any given patient. [facility] does not assume any responsibility for any aspect of healthcare administered with the aid of information [facility] provides. The information contained herein is not intended to cover all possible uses, directions, precautions, warnings, drug interactions, allergic reactions, or adverse effects. If you have questions about the drugs you are taking, check with your doctor, nurse or pharmacist. Copyright 6023-6333 [employer]. Version: 10.. Revision Date: 11/09/2020. Education Materials Treating Insomnia [...] your body to your neck and face. 5876-5859 [employer]. [address] [place] [address]. All rights reserved. This information is not [...] vision Extreme drowsiness, confusion, dizziness, or fainting 8255-3557 [employer]. [address] [place] [address], [place] [address]. All rights reserved. This information is not [...] Swelling, pain or redness in one leg 9396-1753 The [employer]. [address] [place] [address]. All rights reserved. This information is not [...] veins, fluid leaks out into the tissues. Snyder then causes that fluid to move to [...] away Feeling much more tired than usual 5254-9389 The [employer]. [address] [place] [address]. All rights reserved. This information is not intended as a substitute for professional medical care. Always follow yourhealthcare professional's instructions. Additional Information VACCINATE! IT SAVES LIVES! Members of the community who have not yet received the COVID-19 vaccine and would like to receive it can visit one of [facility] vaccine clinics. There are many vaccine clinic locations within the [facility]. For locations and available times, please visit www.gettheshot.coronavirus.[place].gov/. It is important to note that some COVID mobile vaccine clinics are held outdoors and may be canceled in rainy or stormy conditions. To learn more about pediatric vaccinations (ages 5-11), we invite you to visit the [facility] webpage. https://www.[facility].org/pages/0881-Askdo-Ccjuubalhau-Fymvfjuuka-Wuvbm-Stg stions.htmlTo learn more about the COVID-19 vaccine, we invite you to visit the CDC website for a list of frequently asked questions. https://www.cdc.gov/coronavirus/2019-ncov/vaccines/faq.html [facility] Patient Portal Access Instructions: Stay connected with your healthcare team and access your personal medical information anytime with the [employer] Patient Portal. If you would like a full copy of your medical records please contact the [facility] Medical Records Department Monday through Monday between 8a.m. and 4:30p.m. Please follow the directions below to access the portal: 1.Access the email account you [facility].2.Look for an invitation email from [facility].3.Open the email and access the invitation link: Accept Invitation to [facility] [employer]4.Fill in the required orr to create your account. Sign into www.Appsperse with your username and password that you [...] you will allow to register on the [employer] Patient Portal for access to your information. You can also access the [facility] [employer] Patient Portal on the [employer] frida. Simply click on Health Records under HealthData and then click on the Lifesquare logo. HOW TO SAFELY DISPOSE OF PRESCRIPTION [...] Call your local pharmacy or go to http://bit.ly/6O5Ml5x to find one close to you.3.Make use of household items: Use cat litter or old coffee grounds to dispose medications if other options arenot available. Mix your drugs with these household products, seal them in an airtight container andthrow it into the garbage. Call [facility]: [phone] to be sure your drugs can be [...] aware that I should contact my doctor. Patient/Therapist'S Assistant Signature: Date/Time: Relationship to Patient: Witness Name/Signature: Date/Time: [facility] [id number] Note ORIGINAL EXAMINATION: CTA OF THE CHEST [...] aortic dissection. 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 There is more fluid [...] Sign Date: 10/25/2022 1:09:48 AM Ordering Provider: [facility]05-30-2023 Note ORIGINAL EXAMINATION: CTA OF THE [...] aortic dissection. 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 There is more fluid [...] Sign Date: 10/25/2022 1:09:48 AM Ordering Provider: [facility]05-29-2023 Note ORIGINAL EXAMINATION: ONE XRAY VIEW [...] Sign Date: 10/24/2022 11:56:09 PM Ordering Provider: [facility]05-29-2023 Note ORIGINAL EXAMINATION: ONE XRAY [...] By: Kristi Britton MD Electronically signed By Krisit Britton MD Dictated Date: 10/24/2022 11:53:45 PM Prelim Date: 10/24/2022 11:56:09 PM Sign Date: 10/24/2022 11:56:09 PM Ordering Provider: [facility]05-28-[address] Clemens [facility] October 23, 2022 10:40am Note Date/Time October 23, 2022 6:48a m [facility] Medical Records Department [address] [place] [address] Emergency Department Summary 10/23/22 MR#: [id number] Acct: [id number] Name: SOCORRO KELLEY Jr. Rep #:[id number] : 1970 52 From: Jameel Brown DO [...] gets short of breath. Patient states his medication aide is a Dr. Barr out of [facility]. [facility] Medical History (Updated 10/23/22 @ [...] IV and his heart rate is now [id number]. CBC shows no leukocytosis. Hemoglobin macular stable. [...] % (Auto) 67.9 Lymph % (Auto) 19.0 Rusk % (Auto) 9.6 Eos % (Auto) 2.4 [...] your Primary Care Provider. Call [facility] ([phone]) or report to the closest Emergency Room. Call 911 if necessary. 10/23/22 07 <Electronically signed by Jameel Brown DO> Cosigner Signature (if applicable): CC: ZACARIAS COHN ~ Signed ADDENDUM by Dr. Jose A Clemens MD on 10/23/22 at 0759 Patient care was transferred to [facility] at 0710. Patient presented because of palpitations discomfort right side of his chest with shortness of breath. Patient does have history of congestive heart failure and atrial fibrillation. He has relocated from [place]. He does not have a local medication aide. Patient has not taken his Xarelto for [...] (if applicable): cc: ZACARIAS COHN ~* Signed [facility] Work Phone: [phone]) 550-846802-17-2023 Hospital Discharge instructions Patient Education 07/15/2022 21:17:24 [...] temperature. Use toothpaste made for sensitive teeth. [place] gently up and down instead of sideways. Brushing sideways can wear away root surfaces if they are exposed. If your tooth is chipped or cracked, or if there is a large open cavity, put oil of cloves directlyon the tooth to relieve pain. You can buy oil of cloves at drugstores. Some pharmacies carry an itnl-mvk-jafsdtx toothache kit. This contains a paste that you can put on the exposed tooth to make it less sensitive. Put a cold pack on your jaw over the sore area to help reduce pain. You may use hqah-tob-jejaitt medicine to ease pain, unless your doctor [...] healthcare provider Pus drains from the tooth [phone] The [employer]. [address] [place] [address]. All rights reserved. This information is not intended as a substitute for professional medical care. Always follow yourhealthcare professional's instructions. Follow Up Care 07/15/2022 20:40:26 With:Dental Referral List Address: When:2-4 days [facility] 02-17-2023 Note Discharge Instructions Thank you for allowing [facility] to assist you with your healthcare needs. [...] When Why Instructions Last Dose New acetaminophen-hydrocodone (Sellers 325- 5 mg oral tablet) 1 tab(s) [...] temperature. Use toothpaste made for sensitive teeth. [place] gently up and down instead of sideways. Brushing sideways can wear away root surfaces if they are exposed. If your tooth is chipped or cracked, or if there is a large open cavity, put oil of cloves directlyon the tooth to relieve pain. You can buy oil of cloves at [facility]es. Some pharmacies carry an gsxc-vkf-cbzkthj toothache kit. This contains a paste that you can put on the exposed tooth to make it less sensitive. Put a cold pack on your jaw over the sore area to help reduce pain. You may use cgwy-ysn-rhvzizt medicine to ease pain, unless your doctor [...] healthcare provider Pus drains from the tooth 6922-3877 The [employer]. [address] [place] [address]. All rights reserved. This information is not intended as a substitute for professional medical care. Always follow yourhealthcare professional's instructions. Additional Information VACCINATE! IT SAVES LIVES! Members of the community who have not yet received the COVID-19 vaccine and would like to receive it can visit one of [facility] vaccine clinics. There are many vaccine clinic locations within the [facility]. For locations and available times, please visit www.gettheshot.coronavirus.[place].gov/. It is important to note that some COVID mobile vaccine clinics are held outdoors and may be canceled in rainy or stormy conditions. To learn more about pediatric vaccinations (ages 5-11), we invite you to visit the [facility] webpage. https://www.[facility].org/pages/5958-Jhhec-Zmlnzafdonn-Eehzkkmdwc-Lyeyu-Tbz stions.htmlTo learn more about the COVID-19 vaccine, we invite you to visit the CDC website for a list of frequently asked questions. https://www.cdc.gov/coronavirus/2019-ncov/vaccines/faq.html [facility] Patient Portal Access Instructions: Stay connected with your healthcare team and access your personal medical information anytime with the [employer] Patient Portal. If you would like a full copy of your medical records please contact the [facility] Medical Records Department Monday through Monday between 8a.m. and 4:30p.m. Please follow the directions below to access the portal: 1.Access the email account you [facility].2.Look for an invitation email from [facility].3.Open the email and access the invitation link: Accept [facility] to [facility].Fill in the required orr to create your account. Sign into [email or web address] with your username and password that you [...] you will allow to register on the [facility] Patient Portal for access to your information. You can also access the [employer] Patient Portal on the [employer] frida. Simply click on Health Records under Process Relations and then click on the Larry logo. [...] Call your local pharmacy or go to http://bit.Pure Storage/6O1Se4y to find one close to you.3.Make use of household items: Use cat litter or old coffee grounds to dispose medications if other options arenot available. Mix your drugs with these household products, seal them in an airtight container andthrow it into the garbage. Call [facility]: [phone] to be sure your drugs can be [...] aware that I should contact my doctor. Patient/Therapist'S Assistant Signature: Date/Time: Relationship to Patient: Witness Name/Signature: Date/Time: [facility]02-13-2023 Hospital Discharge instructions Patient Education 07/11/2022 09:00:28 [...] alternate ice and heat. You may use gmva-gpp-oqcqmdc pain medicine to control pain, unless another [...] hand becomes cold, blue, numb, or tingly 9803-1445 [employer]. [address] [place] [address], [place] [address]. All rights reserved. This information is not intended as a substitute for professional medical care. Always follow yourhealthcare professional's instructions. Follow Up Care 07/11/2022 08:20:34 With:DO MELISSA COHN DO Address: [address] [place] [address] [address] [place] [address] When:3-7 days With:Go to emergency room if symptoms worsen Address:Unknown When:2-4 days [facility] 02-13-2023 Note Discharge Instructions Thank you for allowing [facility] to assist you with your healthcare needs. [...] COHN DO When Within 3-7 days Where: [address] [place] [address] [address] [place] [phone] Follow Up with Go to emergency room [...] alternate ice and heat. You may use fraq-dhq-fhewuli pain medicine to control pain, unless another [...] hand becomes cold, blue, numb, or tingly 6293-2229 The [employer]. [address] [place] [address], [place] [address]. All rights reserved. This information is not intended as a substitute for professional medical care. Always follow yourhealthcare professional's instructions. Additional Information VACCINATE! IT SAVES LIVES! Members of the community who have not yet received the COVID-19 vaccine and would like to receive it can visit one of [facility] vaccine clinics. There are many vaccine clinic locations within the [facility]. For locations and available times, please visit www.gettheshot.[email or web address].[place].org. It is important to note that some COVID mobile vaccine clinics are held outdoors and may be canceled in rainy orstormy conditions. To learn more about pediatric vaccinations (ages 5-11), we invite you to visit the [facility] webpage. [email or web address] learn more about the COVID-19 vaccine, we invite you to visit the [facility] website for a list of frequently asked questions. [email or web address] [facility] Patient Portal Access Instructions: Stay connected with your healthcare team and access your personal medical information anytime with the [facility] Patient Portal. If you would like a full copy of your medical records please contact the [facility] Medical Records Department Monday through Monday between 8a.m. and 4:30p.m. Please follow the directions below to access the portal: 1.Access the email account you provided upon registration to the hospital.2.Look for an invitation email from [facility].3.Open the email and access the invitation link: Accept Invitation to [facility]4.Fill in the required orr to create your account. Sign into [email or web address] with your username and password that you [...] you will allow to register on the [facility] [employer] Patient Portal for access to your information. You can also access the [facility] Patient Portal on the Envoy. Simply click on Health Records under Process Relations and then click on the [employer] logo. HOW TO SAFELY DISPOSE OF PRESCRIPTION [...] Call your local pharmacy or go to [email or web address] to find one close to you.3.Make use of household items: Use cat litter or old coffee grounds to dispose medications if other options arenot available. Mix your drugs with these household products, seal them in an airtight container andthrow it into the garbage. Call [facility]: [phone] to be sure your drugs can be [...] aware that I should contact my doctor. Patient/Therapist'S Assistant Signature: Date/Time: Relationship to Patient: Witness Name/Signature: Date/Time: [facility]02-13-2023 Note ORIGINAL EXAMINATION: THREE XRAY VIEWS OF [...] 07/11/2022 8:51:46 AM Ordering Provider: MALORIE PEGUERO [facility]02-13-2023 Note ORIGINAL EXAMINATION: THREE XRAY VIEWS OF [...] Sign Date: 07/11/2022 8:51:46 AM Ordering Provider: [facility]09-12-[address] [place] [address] PERSONAL HISTORY AND PHYSICAL : Signed Name: SOCORRO KELLEY JR MRUN: [id number] : 1970 Loc: ENDO Age / Sex: 51/ M Adm Status: PRE [facility] Adm Date:02/15/22 Room/Bed: A 51-year-old patient of [facility] in [place], who comes to discuss endoscopy. He has [...] Dictated Date/Time: 02/07/22 1659 Transcribed Date/Time: 02/07/22 1716[facility] Anesthesiology Consult note* CIRILO MCDONOUGH DO: PERFORM, SIGN, VERIFY Event Display: Anesthesiology Consultation Authored Date: [id number] Patient: SOCORRO KELLEY Age: 53 years Sex: [...] device, # 1 EA, 0 Refill(s), Pharmacy: [facility], 177.8, cm, 11/28/23 13:54:00 EDT, Height, 151.4, kg, 11/28/23 13:54:00 EDT, Dosin... Blood Glucose Test Strips: See Instructions, 1 bottle of 100 Test once daily, # 1 EA, 11 Refill(s), Pharmacy: [facility], 177.8, cm, 11/28/23 13:54:00 EDT, Height, 151.4, kg, 11/28/23 13:54:00 EDT, Dosing Weight FLUoxetine 20 mg oral capsule: Dose : 20 mg = 1 cap(s), Oral, qDay, # 30 cap(s), 3 Refill(s), Pharmacy: [facility], 177.8, cm, 11/28/23 13:54:00 EDT, Height, kg, 11/28/23 13:54:00 EDT,Dosing Weight Lancets: See Instructions, qs 1 month supply Test once daily, # 1 EA, 11 Refill(s), Pharmacy: [facility], 177.8, cm, 11/28/23 13:54:00 EDT, Height, 151.4, kg, 11/28/23 13:54:00 EDT, Dosing Weight Lasix 40 mg oral tablet: See Instructions, 1 tab in AM and 0.5 tab in PM, # 135 tab(s), 3 Refill(s), Pharmacy: [facility], 177.8, cm, 11/28/23 13:54:00 EDT, Height, kg, 11/28/23 13:54:00 EDT, Dosing Weight Symbicort 80 mcg-4.5 mcg/inh Inhaler: Dose = 2 puff(s), Inhalation, BID, # 10.2 gram(s), 3 Refill(s), Pharmacy: [facility], 177.8, cm, 11/28/23 13:54:00 EDT, Height, kg, 11/28/23 13:54:00 EDT, Dosing Weight Tikosyn 250 mcg oral capsule: Dose : 250 mcg = 1 cap(s), Oral, BID, # 180 cap(s), 3 Refill(s), Pharmacy: [facility]/pharmacy #[id number], 177.8, cm, 11/28/23 13:54:00 EDT, Height, kg, 11/28/23 13:54:00 EDT, Dosing Weight Toprol-XL 100 mg oral tablet, extended release: Dose : 100 mg = 1 tab(s), Oral, BID, do not crush or chew, # 180 tab(s), 3 Refill(s), Pharmacy: [facility], Shortness of breath, 177.8, cm, 11/28/23 13:54:00 EDT, Height, kg, 11/28/23 13:54:00 EDT, Dosing Weight Trulicity Pen 1.5 mg/0.5 mL subcutaneous solution: Dose : 1.5 mg =, Subcutaneous, qWeek, sent in absence of PCP, # 4 EA, 3 Refill(s), Pharmacy: [facility], 177.8, cm, 11/28/23 13:54:00EDT, Height, kg, 11/28/23 13:54:00 EDT, Dosing Weight Vistaril 25 mg oral capsule: Dose : 25 mg = 1 cap(s), Oral, QID, PRN as needed for anxiety, X 30 day(s), # 120 cap(s), 5 Refill(s), 06/09/24 16:10:00 EST, Pharmacy: [facility], 177.8, cm, 11/28/23 13:54:00 EDT, Height, kg, 11/28/23 13:54:00 EDT, Dosing Weight Xarelto 20 mg oral tablet: Dose : 20 mg = 1 tab(s), Oral, qHS, # 90 tab(s), 3 Refill(s), Pharmacy: [facility], 177.8, cm, 11/28/23 13:54:00 EDT, Height, 151.4, kg, 11/28/23 13:54:00 EDT, Dosing Weight allopurinol 100 mg oral tablet: Dose : 100 mg = 1 tab(s), Oral, qDay, # 90 tab(s), 3 Refill(s), Pharmacy: [facility], 177.8, cm, 11/28/23 13:54:00 EDT, Height, kg, 11/28/23 13:54:00 EDT, Dosing Weight cetirizine 10 mg oral tablet: Dose : 10 mg = 1 tab(s), Oral, Daily, # 90 tab(s), 3 Refill(s), Pharmacy: [facility], 177.8, cm, 11/28/23 13:54:00 EDT, Height, kg, 11/28/23 13:54:00 EDT,Dosing Weight nystatin 100,000 units/g topical cream: Apply 1 frida, Topical, BID, X 10 day(s), # 30 gram(s), 1 Refill(s), Pharmacy: [facility]/pharmacy #[id number], Cream, 177, cm, 01/12/24 9:42:00 EDT, Height, 148.6, kg, 01/12/24 9:42:00 EDT, Dosing Weight omeprazole 40 mg oral delayed release capsule: Dose : 40 mg = 1 cap(s), Oral, BID, before a meal., # 180 cap(s), 3 Refill(s), Pharmacy: [facility], 177.8, cm, 11/28/23 13:54:00 EDT, Height, kg, 11/28/23 13:54:00 EDT, Dosing Weight rosuvastatin 20 mg oral tablet: Dose : 20 mg = 1 tab(s), Oral, Daily, # 100 tab(s), 3 Refill(s), Pharmacy: [facility], 177.8, cm, 11/28/23 13:54:00 EDT, Height, kg, 11/28/23 13:54:00 EDT, Dosing Weight sacubitril-valsartan 49 mg-51 mg oral tablet: Dose = 1 tab(s), Oral, BID, # 180 tab(s), 3 Refill(s), Pharmacy: [facility], 177.8, cm, 11/28/23 13:54:00 EDT, Height, kg, 11/28/23 13:54:00 EDT, Dosing Weight spironolactone 25 mg oral tablet: Dose : 25 mg = 1 tab(s), Oral, qDay, # 90 tab(s), 3 Refill(s), Pharmacy: [facility], 177.8, cm, 11/28/23 13:54:00 EDT, Height, kg, 11/28/23 13:54:00 EDT, Dosing Weight tiZANidine 2 mg oral tablet: Dose : 2 mg = 1 tab(s), Oral, q8h, PRN as needed for muscle spasm, # 90 tab(s), 2 Refill(s), Pharmacy: [facility], 177.8, cm, 11/28/23 13:54:00 EDT, Height, kg, 11/28/23 13:54:00 EDT, Dosing Weight traZODone 100 mg oral tablet: Dose : 100 mg = 1 tab(s), Oral, qHS, # 90 tab(s), 3 Refill(s), Pharmacy: [facility], 177.8, cm, 11/28/23 13:54:00 EDT, Height, [...] list: Medical Asthma exacerbation / SNOMED CT 4061206489 / Confirmed Anxiety / SNOMED CT 10658106 / Confirmed Atopic dermatitis / SNOMED CT 84219851 / Confirmed BMI 45.0-49.9, adult / SNOMED CT 3649704831 / Confirmed Cardiomyopathy / SNOMED CT 891522690 / Confirmed Diabetes mellitus / SNOMED CT 357990921 / Confirmed Generalized anxiety disorder / SNOMED CT 16141470 / Confirmed Hyperlipidemia / SNOMED CT 43476314 / Confirmed Hypertension / SNOMED CT 8011332235 / Confirmed Insomnia / SNOMED CT 708485321 / Confirmed Moderate asthma / SNOMED CT 9452407608 / Confirmed Morbid obesity / SNOMED CT 740142276 / Confirmed Chewing tobacco nicotine dependence / SNOMED CT 60793061 / Confirmed Obstructive sleep apnea / SNOMED CT 436242556 / Confirmed Right knee pain / SNOMED CT 0678377872 / Confirmed Paroxysmal atrial fibrillation / SNOMED CT 800562579 / Confirmed Screening for ischemic heart disease / SNOMED CT 296785028 / Confirmed Screening for colon cancer / SNOMED CT 196120766 / Confirmed Prediabetes / SNOMED CT 3940885830 / Confirmed Right flank pain / SNOMED CT 253533488 / Confirmed Type 2 diabetes mellitus with hemoglobin A1c goal of less than 7.0% / SNOMED CT 111117416 / Confirmed Wheezing / SNOMED CT 45814043 / Confirmed, Active Problems (26) Anxiety Asthma [...] Mother Grandparent Stroke Father Procedure history: Cardioversion ([id number]) on 12/23/2022 at 52 Years. Echocardiogram ([id number]) on 11/11/2022 at 52 Years. Comments: 03/20/2023 [...] atrial pressure is 15 mm Hg Elbow ([id number]). Comments: 07/11/2022 8:26 CRISTINO Sinha, SHAHEEN Hansen bursitis - right Social History: Social & [...] On and Limits Checked Nail Bed Color [place] Capillary Refill < 2 seconds Heart Sounds [...] Elimination Voiding, no difficulties All Extremity Description [place] Skin Temperature Warm Temperature All Extremities Warm Skin Description [place], Dry Skin Integrity Intact Skin Turgor Non-Elastic Mucous Membrane Color [place] Mucous Membrane Description Moist Neurological Language Able to speak clearly Neurological Symptoms Patient denies Gait Unable to assess Extremity Movement Equal Swallowing Difficulty None Characteristics of Communication Appropriate Characteristics of Speech Clear Facial Symmetry Symmetric Level of Consciousness Alert Aspiration Risk None Eye Opening Response Luis Felipe Spontaneously Best Motor Response Chelsea Obeys simple commands Best Verbal Response Luis [...] On and Limits Checked Nail Bed Color [place] Capillary Refill < 2 seconds Heart Sounds ICU S1S2 Heart Rhythm Irregular Cardiac Rhythm Sinus rhythm Monitoring Lead II, V5/MCL5 MT Interval 0.16 second(s) QRS Duration 0.08 second(s) [...] Elimination Voiding, no difficulties All Extremity Description [place] Skin Temperature Warm Temperature All Extremities Warm Skin Description [place], Dry Skin Integrity Intact Skin Turgor Non-Elastic Mucous Membrane Color [place] Mucous Membrane Description Moist Neurological Language Able to speak clearly Neurological Symptoms Patient denies Gait Unable to assess Extremity Movement Equal Swallowing Difficulty None Characteristics of Communication Appropriate Characteristics of Speech Clear Facial Symmetry Symmetric Level of Consciousness Alert Aspiration Risk None Eye Opening Response Chelsea Spontaneously Best Motor Response Chelsea Obeys simple commands Best Verbal Response Chelsea Oriented Chelsea Coma Score 15 CLARA Yes Strength All [...] date/time 01/31/2024 22:20 Provider Notified MILY MAURER APRN-ASSISTANT CONTROLLER Notification Method Pager Information Communicated Medication request [...] On and Limits Checked Nail Bed Color [place] Capillary Refill < 2 seconds Heart Sounds [...] Movement Makes facial grimaces All Extremity Description [place] Skin Temperature Warm Temperature All Extremities Warm Skin Description [place], Dry Skin Integrity Intact Skin Turgor Non-Elastic Mucous Membrane Color [place] Mucous Membrane Description Moist Sensory Perception [place] [...] Alert Aspiration Risk None Eye Opening Response Chelsea Spontaneously Best Motor Response Chelsea Obeys simple commands Best Verbal Response Luis Felipe Oriented Chelsea Coma Score 15 CLARA Yes Left Pupil [...] On and Limits Checked Nail Bed Color [place] Capillary Refill < 2 seconds Heart Sounds [...] intact Skin Turgor Non-Elastic Mucous Membrane Color [place] Mucous Membrane Description Moist Neurological Language Able to speak clearly Neurological Symptoms Patient denies Extremity Movement Equal Swallowing Difficulty None Characteristics of Communication Appropriate Characteristics of Speech Clear Facial Symmetry Symmetric Level of Consciousness Alert Aspiration Risk None Eye Opening Response Chelsea Spontaneously Best Motor Response Chelsea Obeys simple commands Best Verbal Response Luis [...] No Money To Buy P12M Never true AH No Transport Med/Appt/Work P12M No [facility] Utilities Threaten Shut Off P12M No C Anyone Physically Hurt You Never (1) [facility] Anyone Insult Or Talk Down To You Never (1) [facility] Anyone Threaten You With Harm Never (1) [facility] Anyone Scream Or Curse At You Never (1) [facility] Safety Total Score 4 Living Situation Lives with family Discharge To, Anticipated Home independently Anticipated Discharge Date 02/02/2024 Transition Planning Note Transition Planning Initial Assessment 01/31/2024 15:36 EDT Primary Care Phone Message Transition of Care sent from [facility] 01/31/2024 14:59 EDT heparin 9,000 unit(s) unit(s) Dextrose 5% Premix Diluent 90 mL mL 01/31/2024 14:43 EDT [place] Body Weight 72.7 kg Home Diet Regular Weight Chg, Unintentional Nutrition Hx Weight stable per [place] history Appetite Good Nutrition Plan of Care Dietitian follow up/monitor, Encourage PO feedings, Participate in team conference Nutrition Follow-Up Needed Yes Days until [employer] Follow Up Seven days Adult Nutrition Initial Assessment/Plan Adult Nutrition Assessment/Plan 01/31/2024 14:22 EDT Transition of Care Note Transition of Care sent from [facility] 01/31/2024 14:00 EDT Hand Right 01/30/2024 20 [...] On and Limits Checked Nail Bed Color [place] Capillary Refill < 2 seconds Heart Rhythm [...] Description Normal for ethnicity Mucous Membrane Color [place] Mucous Membrane Description Moist Hand Right 01/30/2024 [...] On and Limits Checked Nail Bed Color [place] Capillary Refill < 2 seconds Heart Rhythm [...] intact Skin Turgor Non-Elastic Mucous Membrane Color [place] Mucous Membrane Description Moist Continuous IV Infusions [...] Response Luis Felipe Spontaneously Best Motor Response Chelsea Obeys simple commands Best Verbal Response [place] Oriented Luis Felipe Coma Score 15 CLARA [...] On and Limits Checked Nail Bed Color [place] Capillary Refill < 2 seconds Heart Rhythm [...] Description Normal for ethnicity Mucous Membrane Color [place] Mucous Membrane Description Moist Continuous IV Infusions [...] On and Limits Checked Nail Bed Color [place] Capillary Refill < 2 seconds Heart Rhythm [...] intact Skin Turgor Non-Elastic Mucous Membrane Color [place] Mucous Membrane Description Moist Continuous IV Infusions [...] Response Luis Felipe Spontaneously Best Motor Response Chelsea Obeys simple commands Best Verbal Response Chelsea Oriented Chelsea Coma Score 15 CLARA Yes Left Pupil [...] On and Limits Checked Nail Bed Color [place] Capillary Refill < 2 seconds Heart Rhythm [...] intact Skin Turgor Non-Elastic Mucous Membrane Color [place] Mucous Membrane Description Moist Continuous IV Infusions [...] On and Limits Checked Nail Bed Color [place] Capillary Refill < 2 seconds Heart Rhythm [...] intact Skin Turgor Non-Elastic Mucous Membrane Color [place] Mucous Membrane Description Moist Hand Right 01/30/2024 [...] Alert Aspiration Risk None Eye Opening Response Chelsea Spontaneously Best Motor Response Luis Felipe Obeys simple commands Best Verbal Response Luis Felipe Oriented [place] Coma Score 15 CLARA Yes Left Pupil [...] EDT Designated Person #1 We May Share [facility] MARILYN OSPINA [phone] Designated Person #1 Relationship Sibling Designated Person #2 We May Share PHI Designated Person #2 We May Share [facility] Designated Person #2 Relationship Significant other Privacy Restrictions Requested None Height 175 cm Height in inches 68.9 inch(es) Admission Weight 149.1 kg Weight Lbs 328 lb [place] Body Weight 70.46 kg BSA Admission 2.55 [...] evident Teaching Method Explanation Preferred Spoken Language [place] Preferred Written Language [place] Teaching Evaluation No further teaching needed Safety [...] On and Limits Checked Nail Bed Color [place] Capillary Refill < 2 seconds Heart Sounds [...] intact Skin Turgor Non-Elastic Mucous Membrane Color [place] Mucous Membrane Description Moist Sensory Perception [place] [...] Alert Aspiration Risk None Eye Opening Response Chelsea Spontaneously Best Motor Response Chelsea Obeys simple commands Best Verbal Response Chelsea Oriented Chelsea Coma Score 15 CLARA Yes Left Pupil [...] explained to patient, Risks and benefits explained [facility] labor representative Transferring Physician MD SAMY JONES MD [...] Transfer Ground ambulance Required Personnel for Transfer Cardiac Exercise Physiologist [facility] Nursing [facility] MICU Discharged to Another hospital 01/31/2024 1:18 [...] 250 mL mL . Assessment and Plan [place] [employer] Anesthesiologists (ASA) physical status classification: [...] CIRILO MCDONOUGH DO on 02/01/2024 06:26 AM [facility] Evaluation + Plan note No data available for this section [facility] Evaluation + Plan note Future Appointments Appointment Date:11/03/2022 09:15:00 AM Scheduled Provider:ZHOU ESPINOSA Location:[facility] Appointment Type:CV SECURITY AGENT Appointment Date:11/08/2022 02:00:00 PM Scheduled Provider:ISADORA CORREA Location:[facility] Appointment Type:PC SECURITY AGENT Unassigned ED Follow Up [facility] Evaluation + Plan note Future Appointments Appointment Date:11/04/2022 08:45:00 AM Scheduled Provider: Location:[facility] Appointment Type:CV SECURITY AGENT Appointment Date:11/08/2022 02:00:00 PM Scheduled Provider:ISADORA CORREA Location:[facility] Appointment Type:PC SECURITY AGENT Unassigned ED Follow Up [facility] Evaluation + Plan note Future Appointments Appointment Date:12/13/2022 03:00:00 PM Scheduled Provider:ISADORA CORREA Location:[facility] Appointment Type:PC OV Follow Up [facility] Evaluation + Plan note Future Appointments Appointment Date:02/07/2023 02:30:00 PM Scheduled Provider:ISADORA CORREA Location:[facility] Appointment Type:PC OV [facility] Evaluation + Plan note Future Appointments Appointment Date:06/20/2023 02:30:00 PM Scheduled Provider:ISADORA CORREA Location:[facility] Appointment Type:PC OV Future Scheduled Tests Laboratory* Basic Metabolic Panel 04/01/23 * A1C Hemoglobin 06/09/23 * Lipid Profile 06/09/23 * Complete Metabolic Panel 06/09/23 [facility] Evaluation + Plan note Future Appointments Appointment Date:08/22/2023 12:00:00 PM Scheduled Provider: Location:[facility] Appointment Type:PF PFT w/[place]od[place] Appointment Date:11/07/2023 02:00:00 PM Scheduled Provider:ISADORA CORREA Location:[facility] Appointment Type:PC OV Future Scheduled Tests Laboratory* Basic Metabolic Panel 04/01/23 [facility] Evaluation + Plan note Future Appointments Appointment Date:11/07/2023 02:00:00 PM Scheduled Provider:ISADORA CORREA Location:[facility] Appointment Type:PC OV Future Scheduled Tests Laboratory* Basic Metabolic Panel 04/01/23 [facility] Evaluation + Plan note Future Appointments Appointment Date:06/20/2023 10:00:00 AM Scheduled Provider:ISADORA CORREA Location:[facility] Appointment Type:PC OV Hospital Follow-Up Appointment Date:06/20/2023 02:30:00 PM Scheduled Provider:ISADORA CORREA Location:[facility] Appointment Type:PC OV Appointment Date:07/17/2023 03:15:00 PM Scheduled Provider:ZHOU ESPINOSA Location:[facility] Appointment Type:CV OV Future Scheduled Tests Laboratory* Basic Metabolic Panel 04/01/23 * A1C Hemoglobin 06/09/23 * Lipid Profile 06/09/23 * Complete Metabolic Panel 06/09/23 [facility] Evaluation + Plan note Future Appointments Appointment Date:02/13/2024 03:30:00 PM Scheduled Provider:ISADORA CORREA Location:[facility] Appointment Type:PC Wellness Annual w/Labs Future Scheduled Tests Laboratory* Basic Metabolic Panel 04/01/23 * Prostate Specific Antigen 02/07/24 * A1C Hemoglobin 02/07/24 * Lipid Profile 02/07/24 * Complete Metabolic Panel 02/07/24 [facility] Evaluation + Plan note Future Appointments Appointment Date:03/26/2024 08:00:00 PM Scheduled Provider: Location:[facility] Appointment Type: Sameer Study Appointment Date:05/14/2024 03:00:00 PM Scheduled Provider:ISADORA CORREA Location:[facility] Appointment Type:PC OV Lab Check Future Scheduled Tests Laboratory* Basic Metabolic Panel 02/07/24 * Basic Metabolic Panel 02/19/24 * Basic Metabolic Panel 04/01/23 * Magnesium Level 02/07/24 * A1C Hemoglobin 05/14/24 * Lipid Profile 05/14/24 * Complete Metabolic Panel 05/14/24 [facility] Evaluation + Plan note Future Appointments Appointment Date:04/01/2024 01:00:00 PM Scheduled Provider:DAMIAN SHRESTHA MD Location:[facility] Appointment Type:GS OV Appointment Date:05/14/2024 03:00:00 PM Scheduled Provider:ISADORA CORREA Location:[facility] Appointment Type:PC OV Lab Check Future Scheduled Tests Laboratory* Basic Metabolic Panel 02/07/24 * Basic Metabolic Panel 02/19/24 * Basic Metabolic Panel 04/01/23 * Magnesium Level 02/07/24 * A1C Hemoglobin 05/14/24 * Lipid Profile 05/14/24 * Complete Metabolic Panel 05/14/24 [facility] Evaluation + Plan note Future Appointments Appointment Date:02/13/2024 03:30:00 PM Scheduled Provider:ISADORA CORREA Location:[facility] Appointment Type:PC Wellness Annual w/Labs Future Scheduled Tests Laboratory* Basic Metabolic Panel 02/07/24 * Basic Metabolic Panel 02/19/24 * Basic Metabolic Panel 04/01/23 * Magnesium Level 02/07/24 [facility] Evaluation + Plan note Future Appointments Appointment Date:08/12/2024 03:00:00 PM Scheduled Provider:ISADORA CORREA Location:[facility] Appointment Type: Wellness Annual Future Scheduled Tests Laboratory* Basic Metabolic Panel 02/07/24 * Basic Metabolic Panel 02/19/24 * Magnesium Level 02/07/24 [facility] Evaluation + Plan note Future Appointments Appointment Date:10/23/2024 04:00:00 PM Scheduled Provider:ISADORA CORREA Location:[facility] Appointment Type:PC OV Appointment Date:11/08/2024 02:30:00 PM Scheduled Provider:EDY WEBER Location:[facility] Appointment Type:[facility] Hospital Follow Up Future Scheduled Tests Laboratory* Basic Metabolic Panel 02/07/24 * Basic Metabolic Panel 12/10/24 * Basic Metabolic Panel 02/19/24 * Magnesium Level 02/07/24 * Complete Blood Count 08/27/24 * Complete Metabolic Panel 08/27/24 * N-Terminal proBNP 08/27/24 [facility] Evaluation noteNo assessment information available [facility] Work Phone: Hospital Discharge instructions Additional Instructions Call Dr. Etienne's office on Monday to be seen later this coming week.[facility] Work Phone: Hospital Discharge instructions No data available for this section [facility] Hospital Discharge instructions Additional Instructions Chest x-ray negative. COVID and flu negative. Vapor rubs, humidifier. May use loratadine D that you have at home daily. Cough suppressants as needed. Follow-up with your doctor. Return if any worsening symptoms.[facility] Work Phone: Progress note No data available for this section [facility] Summary note* MACIEJ Rasmussen: PERFORM Event Display: Patient Summary Documents Authored Date: [facility] Summary Purpose Family History No Family History [...] October 23, 2022 6 :09am Power of Resident Physician No October 23, 2022 6:09am Advance Directive Response Recorded Date/ Time Living Will No February 12, 2023 7:08am Power of Resident Physician No January 7:08am Chief Complaint and Reason [...] section and content) DATE CREATED AUTHOR 02/15/2021 [facility] DATE CREATED AUTHOR AUTHOR'S ORGANIZ ATION 08/25/2021 [facility] DATE CREATED AUTHOR AUTHOR'S ORGANIZ ATION 2021 [employer] DATE CREATED AUTHOR AUTHOR'S ORGANIZ ATION 06/07/2022 [facility] DATE CREATED AUTHOR AUTHOR'S ORGANIZ ATION 08/17/2022 [facility] DATE CREATED AUTHOR AUTHOR'S ORGANIZ ATION 10/13/2023 [facility] DATE CREATED AUTHOR AUTHOR'S ORGANIZ ATION 02/02/2024 [facility] DATE CREATED AUTHOR AUTHOR'S ORGANIZ ATION 10/07/2024 [facility] DATE CREATED AUTHOR AUTHOR'S ORGANIZ ATION 10/23/2024 [facility] DATE CREATED AUTHOR AUTHOR'S ORGANIZ ATION 11/03/2024 [facility] DATE CREATED AUTHOR AUTHOR'S ORGANIZ ATION 11/04/2024 [facility] Care Team (unrecognized sect ion and content) Care Team Personnel Name: PHYSICIAN, NONE Position: Physician Member Role: Primary Care Physician Name: MALORIE PEGUERO MD Position: ED Physician Member Role: ED Physician Address: Address: [facility] [address] [place] [address]- Name: SHAHEEN Sinha Position: AO RN Member Role: ED RN Care Team Related Persons Name: MAST, MARILYN Care Team Personnel Name: PHYSICIAN, NONE Position: Physician Member Role: Primary Care Physician Name: JEREMIE MCCORMACK MD Position: ED Physician Member Role: ED Physician Address: Address: [facility] [address] [place] [address]- Name: Halley Staples RN Position: AO RN [...] Role Status Dates Dr. Jameel Brown , Emergency Provider Active ROMAIN ADAMES Primary Care Provider Active Team Status: Active Member Role Status Dates Dr. Ollie Bright MD Family Provider Active Isadora Correa SECURITY AGENT, SECURITY AGENT-C Primary Care Provider Active Team Status: Inactive Member Role Status Dates Dr. Jameel Brown , Attending Provider, Emergency Provider Active ROMAIN ADAMES Primary Care Provider Active Team Status: Inactive Member Role Status Dates Dr. Nguyễn Al , Emergency Provider Active Isadora Correa SECURITY AGENT, SECURITY AGENT-C Primary Care Provider Active Goals (unrecognized section [...] BE BASED ON THE PRIMARY CLINICAL RECORDS. [employer] provides no warranty or guarantee of the accuracy or completeness of information in this document.
--- OUTSIDE RECORDS SUMMARY | 2024-11-06 03:58 | XMS RPT_ITS | CCD ---
Author Organization [facility] Care Team Providers Care Negotiator Name Role Phone Zacarias Cohn Referring Unavailable [...] Unavailable ISADORA CORREA [facility] Care [facility] Attending [facility] Primary Care Unavailable BETZAIDA PETTIT, DEMI Attending [facility] Primary Care Unavailable BETZAIDA PETTIT, DEMI Attending Un[facility] Primary Care Unavailable SAMY JONES Attending [facility] Primary Care Unavailable CINDY HERNANDEZ MD Consulting Unavailable DR OLLIE BROOKE MD Att[facility] Care Unavailable SLOANE AGARWAL DO Attending Unavailable LORSON, MONTEBELLO Primary Care Unavailable SLOANE AGARWAL DO Attending Unavailable [facility] Admitting Unavailable [facility]ending [facility] Primary [facility] Primary Care Unavailable KAVYA CREDIT PROCESSOR-WASTE DISPOSAL LEAKAGE TESTERJONNY Attending U julio cesar YANES CREDIT PROCESSOR-WASTE DISPOSAL LEAKAGE TESTERHELEN Attending Unava ilable LORSON CREDIT PROCESSOR-WASTE DISPOSAL LEAKAGE TESTER, [facility] Care Unavail able LORSON CREDIT PROCESSOR-WASTE DISPOSAL LEAKAGE TESTER, MONTEBELLO Attending Unavail able LORSON CREDIT PROCESSOR-WASTE DISPOSAL LEAKAGE TESTER, MONTEBELLO Primary Care Unavail able LORSON CREDIT PROCESSOR-WASTE DISPOSAL LEAKAGE TESTER, MONTEBELLO Attending Unavail able LORSON CREDIT PROCESSOR-WASTE DISPOSAL LEAKAGE TESTER, MONTEBELLO Primary Care Unavail able LORSON CREDIT PROCESSOR-WASTE DISPOSAL LEAKAGE TESTER, MONTEBELLO Attending Unavail able LORSON CREDIT PROCESSOR-WASTE DISPOSAL LEAKAGE TESTER, MONTEBELLO Primary Care Unavail able LORSON CREDIT PROCESSOR-WASTE DISPOSAL LEAKAGE TESTER, MONTEBELLO Primary Care Unavail able LORSON CREDIT PROCESSOR-WASTE DISPOSAL LEAKAGE TESTER, MONTEBELLO Attending Unavail able LORSON CREDIT PROCESSOR-WASTE DISPOSAL LEAKAGE TESTER, MONTEBELLO Attending Unavail able LORSON CREDIT PROCESSOR-WASTE DISPOSAL LEAKAGE TESTER, MONTEBELLO Primary Care Unavail able LORSON CREDIT PROCESSOR-WASTE DISPOSAL LEAKAGE TESTER, MONTEBELLO Attending Unavail able LORSON CREDIT PROCESSOR-WASTE DISPOSAL LEAKAGE TESTER, [facility] Care Unavail able CINDY HERNANDEZ MD Consulting Unavailable DR ASMY JONES MD, V Attending Unavai lable L[place]SON CREDIT PROCESSOR-WASTE DISPOSAL LEAKAGE TESTER, [facility] Care Unavail able DELORES MURO DO Attending Unavailable L[place]SON CREDIT PROCESSOR-WASTE DISPOSAL LEAKAGE TESTER, [facility] Care Unavail able DR WILNER JOE MD Attending Unavailabl e LORSON CREDIT PROCESSOR-WASTE DISPOSAL LEAKAGE TESTER, [facility] Care Unavail able CIRILO PATEL DO Attending Unavailable L[place]SON CREDIT PROCESSOR-WASTE DISPOSAL LEAKAGE TESTER, [facility] Care Unavail able JAKE MAXWELL Attending Unavailable JAKE MAXWELL Primary Care Unavailable JAKE MAXWELL Admitting Unavailable MOY WATTS MD Attending U julio cesar PECK MD, JANAE Consulting Unavailable NADIR PETTIT, DR JONES Admitting Unavailab le LORSON CREDIT PROCESSOR-[facility], [facility] Unavail michele ZIMMER MD, ARIEL Consulting Unavailable NATALY PETTIT, BRENNON Attending Unavailable DAVID PETTIT, CINDY Aden Admitting Unavailable HELENA GAINES MD Consulting Unavailable LORSON CREDIT PROCESSOR-WASTE DISPOSAL LEAKAGE TESTER, [facility] Unavail michele HERRMANN MD, DR UPTON Consulting Unavailable DAVID PETTIT, CINDY Aden Consulting Unavailable NANI QUINTANA DO Attending Unavailable LUPE STONE, DR ORTIZ Consulting Unavailable LORSON CREDIT PROCESSOR-WASTE DISPOSAL LEAKAGE TESTER, [facility] Unavail able FELICE STONE, NANI Admitting Unavailable CORRY STONE, CHANTAL Reardon Consulting Unavailable MELISSA MARIN MD Consulting Unavailable HOSPITALLARRY [facility]WOOD Consulting Unavailable Sunny BANKING TEACHER, [facility] Unavailable Dolly Walter Attending Unavailable Kimson BANKING TEACHER, [facility] Unavailable Dolly Walter Attending Unavailable Kimson BANKING TEACHER, [facility] Unavailable Dolly Walter Attending Unavailable Dolly Walter Attending Unavailable Lorson BANKING TEACHER, [facility] Unavailable Allergies Allergy Classification Reported Allergen(s) Allergy Type Date of Onset Reaction(s) Facility (4 sources) HMG-CoA reductase inhibitor; 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: [statins] Propensity to adverse reactions to drug myalgia [facility] Medications Current Medications Medication Drug Class(es) Dates [...] every six hours as needed for pain Cotton 325- 5 mg oral tablet Dose = 1 tab(s), Oral, q6h, PRN As needed for severe pain, X 3 day(s), # 12 tab(s), 0 Refill(s), Contusion of rib on right side, 144.4 Start Date: 05/05/23 Stop Date: 05/08/23 Status: Ordered Start: 07-15-2022 End: 07-17-2022 take 1 tablet by mouth every six hours as needed for pain Cotton 325- 5 mg oral tablet Dose = [...] day(s), # 28 tab(s), 0 Refill(s), Pharmacy: [facility]/pharmacy #[id number], Post-op pain, 177.8, cm, 10/17/24 [...] q6h, # 120 EA, 0 Refill(s), Pharmacy: [facility]/pharmacy #[id number], 176, cm, 08/27/24 14:57:00 EDT, Height, kg, 08/27/24 14:57:00 EDT, Dosing Weight Start Date: 08/27/24 Status: Ordered Quantity: 120.0 Unit: EA Repeat number: 1 allopurinol 100 mg oral tablet (20 sources) Xanthine Oxidase Inhibitor Start: 12-12-2023 allopurinol 100 mg oral tablet Dose : 100 mg = 1 tab(s), Oral, qDay, # 90 tab(s), 3 Refill(s), Pharmacy: [facility], 177.8, cm, 11/28/23 13:54:00 EDT, Height, kg, 11/28/23 13:54:00 EDT, Dosing Weight Start Date: 12/12/23 Status: Ordered Quantity: 90.0 Unit: tab(s) Repeat number: 4 Start: 08-08-2023 allopurinol 10 0 mg oral tablet Dose : 100 mg = 1 tab(s), Oral, qDay, # 90 tab(s), 3 Refill(s), Pharmacy: [facility] #[id number], 178.5, cm, 08/08/23 13:32:00 EDT, Height, kg, 08/08/23 13:32:00 EDT, Dosing Weight Start Date: 08/08/23 Status: Ordered Start: 10-23-2022 End: 02-06-2023 allopurinol 100 mg oral tabl et Dose : 100 mg = 1 tab(s), Oral, qDay, # 90 tab(s), 3 Refill(s), Pharmacy: [facility] #[id number], 175.3, cm, 12/23/22 6:37:00 EDT, Height, kg, [...] 100 tab(s), 3 Refill(s), Pharmacy: [facility] #[id number], 178.5, cm, 08/08/23 13:32:00 EDT, Height, kg, 08/08/23 13:32:00 EDT, Dosing Weight Start Date: 08/09/23 Status: Ordered bempedoic acid 180 mg oral tablet (4 sources) Start: 05-14-2024 Nexletol 180 m g oral tablet Dose : 180 mg = 1 tab(s), Oral, qDay, # 30 tab(s), 5 Refill(s), Pharmacy: [facility], 175, cm, 05/14/24 13:59:00 EST, [...] device, # 1 EA, 0 Refill(s), Pharmacy: [facility], 177.8, cm, 11/28/23 13:54:00 EDT, Height, 151.4, kg, 11/28/23 13:54:00 EDT, Dosing Weight Start Date: 12/12/23 Status: Ordered Quantity: 1.0 Unit: EA Repeat number: 1 Start: 12-12-2023 Blood Glucose Test Machine See Instructions, Use glucometer daily as directed for blood sugar checks. Dispense insurance preferred device, # 1 EA, 0 Refill(s), Pharmacy: [facility], 177.8, cm, 11/28/23 13:54:00 EDT, Height, 151.4, kg, 11/28/23 13:54:00 EDT, Dosing Weight Start Date: 12/12/23 Status: Ordered cetirizine hydrochloride 10 mg oral tablet (12 sources) Histamine-1 Receptor Antagonist Start: 08-08-2023 End: 12-06-2024 cetirizine 10 mg oral tablet Dose : 10 mg = 1 tab(s), Oral, Daily, # 90 tab(s), 3 Refill(s), Pharmacy: [facility], 177.8, cm, 11/28/23 13:54:00 EDT, [...] BID, # 180 cap(s), 4 Refill(s), Pharmacy: [facility]/pharmacy #[id number], 177.8, cm, 10/02/24 6:28:00 EDT, Height, kg, 10/02/24 6:28:00 EDT, Dosing Weight Start Date: 10/04/24 Status: Ordered Quantity: 180.0 Unit: cap(s) Repeat number: 5 Start: 09-24-2024 Tikosyn 250 mc g oral capsule Dose : 250 mcg = 1 cap(s), Oral, BID, # 180 cap(s), 1 Refill(s), Pharmacy: [facility]/pharmacy #[id number], 175, cm, 09/05/24 16:01:00 EDT, Height, kg, 09/05/24 16:01:00 EDT, Dosing Weight Start Date: 09/24/24 Status: Ordered Quantity: 180.0 Unit: cap(s) Repeat number: 2 Start: 12-12-2023 Tikosyn 250 mc g oral capsule Dose : 250 mcg = 1 cap(s), Oral, BID, # 180 cap(s), 3 Refill(s), Pharmacy: [facility]/pharmacy #[id number], 177.8, cm, 11/28/23 13:54:00 EDT, Height, kg, 11/28/23 13:54:00 EDT, Dosing Weight Start Date: 12/12/23 Status: Ordered Quantity: 180.0 Unit: cap(s) Repeat number: 4 Start: 06-09-2023 Tikosyn 250 mc g oral capsule Dose : 250 mcg = 1 cap(s), Oral, BID, # 60 cap(s), 2 Refill(s), Pharmacy: [facility] #[id number], 176, cm, 06/07/23 13:36:00 EST, Height, kg, 06/07/23 13:36:00 EST, Dosing Weight Start Date: 06/09/23 Status: Ordered 0.5 ml dulaglutide 3 mg/ml auto-injector (10 sources) GLP-1 Receptor Agonist Start: 04-15-2024 End: 10-02-2025 inject 1 dose by subcutaneous injection every week Trulicity Pen 1.5 mg/0.5 mL subcutaneous solution Dose : 1.5 mg =, Subcutaneous, qWeek, # 12 EA, 3 Refill(s), Pharmacy: [facility]/pharmacy #[id number], 177.8, cm, 10/02/24 6:28:00 EDT, [...] PCP, # 4 EA, 3 Refill(s), Pharmacy: [facility], 177.8, cm, 11/28/23 13:54:00 EDT, Height, kg, 11/28/23 13:54:00 EDT, Dosing Weight Start Date: 12/12/23 Stop Date: 04/02/24 Status: Ordered Start: 08-21-2023 inject 0.5 mL by sub cutaneous injection every week Trulicity Pen 0.75 mg/0.5 mL subcutaneous solution Dose : 0.75 mg = 0.5 mL, Subcutaneous, qWeek, # 2.5 mL, 5 Refill(s), 0.5 mL/Pen, Pharmacy: [facility] #[id number], 177.8, cm, 08/09/23 21:07:00 EDT, Height, kg, [...] qDay, # 30 cap(s), 3 Refill(s), Pharmacy: [facility], 177.8, cm, 11/28/23 13:54:00 EDT, Height, kg, 11/28/23 13:54:00 EDT, Dosing Weight Start Date: 12/12/23 Status: Ordered Start: 08-08-2023 End: 08-02-2024 FLUoxetine 10 mg oral capsul e Dose : 10 mg = 1 cap(s), Oral, qDay, # 30 cap(s), 0 Refill(s), Pharmacy: [facility], 175, cm, 05/14/24 13:59:00 EST, Height, kg, 05/14/24 13:57:00 EST, Dosing Weight Start Date: 05/14/24 Status: Ordered Quantity: 30.0 Unit: cap(s) Repeat number: 1 Start: 06-09-2023 FLUoxetine 10 mg oral capsule Dose : 10 mg = 1 cap(s), Oral, qDay, # 30 cap(s), 2 Refill(s), Pharmacy: [facility] #[id number], 176, cm, 06/07/23 13:36:00 EST, Height, kg, 06/07/23 13:36:00 EST, Dosing Weight Start Date: 06/09/23 Status: Ordered Start: 01-31-2023 FLUoxetine 20 mg oral tablet Dose : 20 mg = 1 tab(s), Oral, qDay, # 90 tab(s), 3 Refill(s), Pharmacy: [facility] #[id number], 175.3, cm, 12/23/22 6:37:00 EDT, Height, kg, 12/23/22 6:38:00 EDT, Dosing Weight Start Date: 01/31/23 Status: Ordered Start: 12-13-2022 FLUoxetine 20 mg oral tablet Dose : 20 mg = 1 tab(s), Oral, qDay, # 30 tab(s), 3 Refill(s), Pharmacy: [facility] #[id number], 175.3, cm, 12/13/22 14:43:00 EDT, Height Start Date: 12/13/22 Status: Ordered Start: 11-08-2022 FLUoxetine 10 mg oral tablet Dose : 10 mg = 1 tab(s), Oral, qDay, # 30 tab(s), 2 Refill(s), Pharmacy: [facility] #[id number], 177, cm, 11/08/22 13:50:00 EDT, Height Start Date: 11/08/22 Status: Ordered 120 actuat fluticasone propionate 0.11 mg/actuat metered dose inhaler (3 sources) Corticosteroid Start: 08-08-2023 End: 08-02-2024 take 2 puff(s) by inhalation twice daily Flovent HFA 110 mcg/inh inhalation aerosol 2 puff(s), Inhalation, BID, # 3 EA, 3 Refill(s), [facility][id number], 178.5, cm, 08/08/23 13:32:00 EDT, Height, kg, [...] daily., # 30 tab(s), 0 Refill(s), Pharmacy: [facility], 175, cm, 02/13/24 15:03:00 EDT, Height, kg, 02/13/24 15:03:00 EDT, Dosing Weight Start Date: 03/07/24 Status: Ordered Quantity: 30.0 Unit: tab(s) Repeat number: 1 Start: 02-09-2024 furosemide 20 mg oral tablet Dose : 20 mg = 1 tab(s), Oral, Daily, Take 2 tablets daily for the first 3 days followed by 1 tablet daily., # 30 tab(s), 3 Refill(s), Pharmacy: [facility]/pharmacy #[id number], 175, cm, 02/09/24 15:58:00 EDT, Height, kg, 02/09/24 15:58:00 EDT, Dosing Weight Start Date: 02/09/24 Status: Ordered Start: 12-12-2023 take 1 tablet by brandon th in the morning, then take 0.5 tablet by mouth in the evening Lasix 40 mg oral tablet See Instructions, 1 tab in AM and 0.5 tab in PM, # 135 tab(s), 3 Refill(s), Pharmacy: [facility], 177.8, cm, 11/28/23 13:54:00 EDT, Height, kg, 11/28/23 13:54:00 EDT, Dosing Weight Start Date: 12/12/23 Status: Ordered Start: 08-08-2023 take 1 tablet by brandon th in the morning, then take 0.5 tablet by mouth in the evening Lasix 40 mg oral tablet See Instructions, 1 tab in AM and 0.5 tab in PM, # 135 tab(s), 3 Refill(s), Pharmacy: [facility] #[id number], 178.5, cm, 08/08/23 13:32:00 EDT, Height, kg, 08/08/23 13:32:00 EDT, Dosing Weight Start Date: 08/08/23 Status: Ordered Start: 11-14-2022 take 1 tablet by brandon th in the morning, then take 0.5 tablet by mouth in the evening Lasix 40 mg oral tablet See Instructions, 1 tab in AM and 0.5 tab in PM, # 135 tab(s), 0 Refill(s), Pharmacy: [facility] #[id number], 177, cm, 11/08/22 13:50:00 EDT, Height, kg, [...] Refill(s), 06/09/24 4:10:00 PM EST, Pharmacy: [facility], 177.8, cm, 11/28/23 13:54:00 EDT, Height, [...] 05/31/23 2:41:00 PM EST, Pharmacy: [facility] #[id number], 175.3, cm, 12/23/22 6:37:00 EDT, Height, kg, [...] 30 tab(s), 6 Refill(s), Pharmacy: [facility] #[id number], 175.3, cm, 12/23/22 6:37:00 EDT, Height, kg, 12/23/22 6:38:00 EDT, Dosing Weight Start Date: 12/23/22 Status: Ordered metFORMIN hydrochloride 500 mg oral tablet (7 sources) Biguanide Start: 01-31-2023 MetFORMIN (Eqv-Fortamet) 500 mg oral tablet, EXTENDED RELEASE Dose : 500 mg = 1 tab(s), Oral, qDay, # 90 tab(s), 3 Refill(s), Pharmacy: [facility] #[id number], 175.3, cm, 12/23/22 6:37:00 EDT, Height, kg, [...] day(s), # 30 EA, 5 Refill(s), Pharmacy: [facility] #[id number], 177, cm, 11/08/22 13:50:00 EDT, Height Start Date: 11/08/22 Stop Date: 05/07/23 Status: Ordered nystatin 046401 unt/ml topical cream (1 source) Polyene Antifungal Start: 01-12-2024 End: 02-01-2024 nystatin 100,000 units/g topical cream Apply 1 frida, Topical, BID, X 10 day(s), # 30 gram(s), 1 Refill(s), Pharmacy: [facility]/pharmacy #[id number], Cream, 177, cm, 01/12/24 9:42:00 EDT, Height, 148.6, kg, 01/12/24 9:42:00 EDT, Dosing Weight Start Date: 01/12/24 Stop Date: 02/01/24 Status: Ordered omeprazole 40 mg delayed release oral capsule (20 sources) Proton Pump Inhibitor Start: 09-19-2024 omeprazole 40 mg oral delayed release capsule Dose : 40 mg = 1 cap(s), Oral, BID, before a meal., # 180 cap(s), 0 Refill(s), Pharmacy: [facility]/pharmacy #[id number], 175, cm, 09/05/24 16:01:00 EDT, Height, kg, 09/05/24 16:01:00 EDT, Dosing Weight Start Date: 09/19/24 Status: Ordered Quantity: 180.0 Unit: cap(s) Repeat number: 1 Start: 12-12-2023 omeprazole 40 mg oral delayed release capsule Dose : 40 mg = 1 cap(s), Oral, BID, before a meal., # 180 cap(s), 3 Refill(s), Pharmacy: [facility], 177.8, cm, 11/28/23 13:54:00 EDT, Height, kg, 11/28/23 13:54:00 EDT, Dosing Weight Start Date: 12/12/23 Status: Ordered Quantity: 180.0 Unit: cap(s) Repeat number: 4 Start: 08-08-2023 omeprazole 40 mg oral delayed release capsule Dose : 40 mg = 1 cap(s), Oral, BID, before a meal., # 180 cap(s), 3 Refill(s), Pharmacy: [facility] #[id number], 178.5, cm, 08/08/23 13:32:00 EDT, Height, kg, 08/08/23 13:32:00 EDT, Dosing Weight Start Date: 08/08/23 Status: Ordered Start: 05-26-2023 omeprazole 40 mg oral delayed release capsule Dose : 40 mg = 1 cap(s), Oral, BID, before a meal. sent in absence of PCP, # 60 cap(s), 0 Refill(s), [facility][id number], 152.8, cm, 05/12/23 11:14:00 EST, Height, kg, 05/12/23 11:14:00 EST, Dosing Weight Start Date: 05/26/23 Status: Ordered Start: 03-15-2023 End: 05-14-2023 omeprazole 40 mg oral delaye d release capsule Dose : 40 mg = 1 cap(s), Oral, BID, before a meal, # 60 cap(s), 1 Refill(s), [facility] #[id number], 175.9, cm, 02/15/23 13:56:00 EDT, Height, kg, [...] 0 Refill(s), 05/24/24 2:36:00 PM EST, Pharmacy: [facility]/pharmacy #[id number], 175, cm, 05/14/24 13:59:00 EST, Height, 143.9, kg, 05/14/24 13:57:00 EST, Dosing Weight Start Date: 05/14/24 Stop Date: 05/24/24 Status: Ordered Quantity: 30.0 Unit: tab(s) Repeat number: 1 polyethylene glycol 3350 wit h electrolytes oral powder for reconstitution (2 sources) Start: 02-15-2023 polyethylene g lycol 3350 with electrolytes oral powder for reconstitution See Instructions, As directed by provider at [facility]., # 1 EA, 0 Refill(s), Pharmacy: [facility] #[id number], Colon cancer screening, 175.9, cm, 02/15/23 13:56:00 EDT, Height, kg, 02/15/23 13:56:00 EDT, Dosing Weight Start Date: 02/15/23 Status: Ordered potassium chloride 20 meq or al tablet (11 sources) Start: 10-04-2024 Potassium Chlo ride (Eqv-K-Tab) 20 mEq oral tablet, extended release Dose : 20 mEq = 1 tab(s), Oral, qDay, Take with food, # 90 tab(s), 3 Refill(s), [id number], 177.8, cm, 10/02/24 6:28:00 EDT, Height, kg, 10/02/24 6:28:00 EDT, Dosing Weight Start Date: 10/04/24 Status: Ordered Quantity: 90.0 Unit: tab(s) Repeat number: 4 Start: 02-09-2024 Potassium Chlo ride (Eqv-K-Tab) 10 mEq oral tablet, extended release Dose : 10 mEq = 1 tab(s), Oral, qDay, # 30 tab(s), 3 Refill(s), Pharmacy: [facility]/pharmacy #[id number], 175, cm, 02/09/24 15:58:00 EDT, [...] Daily, # 100 tab(s), 3 Refill(s), Pharmacy: [facility], 175, cm, 02/13/24 15:03:00 EDT, [...] qHS, # 90 tab(s), 11 Refill(s), Pharmacy: [facility]/pharmacy #[id number], 177.8, cm, 10/02/24 6:28:00 EDT, Height, 140.3, kg, 10/02/24 6:28:00 EDT, Dosing Weight Start Date: 10/04/24 Status: Ordered Quantity: 90.0 Unit: tab(s) Repeat number: 12 Start: 12-12-2023 Xarelto 20 mg oral tablet Dose : 20 mg = 1 tab(s), Oral, qHS, # 90 tab(s), 3 Refill(s), Pharmacy: [facility], 177.8, cm, 11/28/23 13:54:00 EDT, Height, 151.4, kg, 11/28/23 13:54:00 EDT, Dosing Weight Start Date: 12/12/23 Status: Ordered Quantity: 90.0 Unit: tab(s) Repeat number: 4 Start: 08-08-2023 Xarelto 20 mg oral tablet Dose : 20 mg = 1 tab(s), Oral, qHS, # 90 tab(s), 3 Refill(s), [id number], 178.5, cm, 08/08/23 13:32:00 EDT, Height, 156.7, kg, 08/08/23 13:32:00 EDT, Dosing Weight Start Date: 08/08/23 Status: Ordered Start: 10-23-2022 End: 02-06-2023 Xarelto 20 mg oral tablet Do se : 20 mg = 1 tab(s), Oral, qHS, # 90 tab(s), 3 Refill(s), [id number], 175.3, cm, 12/23/22 6:37:00 EDT, Height, 144, kg, 12/23/22 6:38:00 EDT, Dosing Weight Start Date: 01/31/23 Status: Ordered rosuvastatin calcium 20 mg oral tablet (3 sources) HMG-CoA Reductase Inhibitor Start: 12-12-2023 rosuvastatin 20 mg oral tablet Dose : 20 mg = 1 tab(s), Oral, Daily, # 100 tab(s), 3 Refill(s), Pharmacy: [facility], 177.8, cm, 11/28/23 13:54:00 EDT, [...] BID, # 180 tab(s), 3 Refill(s), Pharmacy: [facility], 177.8, cm, 11/28/23 13:54:00 EDT, Height, kg, 11/28/23 13:54:00 EDT, Dosing Weight Start Date: 12/12/23 Stop Date: 12/06/24 Status: Ordered Start: 03-22-2023 take 1 tablet by [facility] twice daily sacubitril-valsartan 49 mg-51 mg oral tablet Dose = 1 tab(s), Oral, BID, # 60 tab(s), 3 Refill(s), [facility]acy: [facility] #[id number], 175.3, cm, 03/22/23 13:31:00 EDT, Height, kg, 03/22/23 13:31:00 EDT, Dosing Weight Start Date: 03/22/23 Status: Ordered spironolactone 25 mg oral tablet (19 sources) Aldosterone Antagonist Start: 08-08-2023 End: 12-06-2024 spironolactone 25 mg oral tablet Dose : 25 mg = 1 tab(s), Oral, qDay, # 90 tab(s), 3 Refill(s), Pharmacy: [facility], 177.8, cm, 11/28/23 13:54:00 EDT, Height, kg, 11/28/23 13:54:00 EDT, Dosing Weight Start Date: 12/12/23 Stop Date: 12/06/24 Status: Ordered Quantity: 90.0 Unit: tab(s) Repeat number: 4 Start: 02-07-2023 spironolactone 25 mg oral tablet Dose : 25 mg = 1 tab(s), Oral, qDay, # 60 tab(s), 5 Refill(s), Pharmacy: [facility] #[id number], 175.3, cm, 12/23/22 6:37:00 EDT, Height, kg, 12/23/22 6:38:00 EDT, Dosing Weight Start Date: 02/07/23 Status: Ordered Start: 11-24-2022 spironolactone 25 mg oral tablet Dose : 25 mg = 1 tab(s), Oral, qDay, # 60 tab(s), 0 Refill(s), Pharmacy: [facility] #[id number], 177, cm, 11/08/22 13:50:00 EDT, Height, kg, 11/08/22 13:50:00 EDT, Dosing Weight Start Date: 11/24/22 Status: Ordered Start: 11-04-2022 spironolactone 25 mg oral tablet Dose : 25 mg = 1 tab(s), Oral, BIDM, # 60 tab(s), 0 Refill(s), Pharmacy: [facility] #[id number], 175.3, cm, 11/04/22 8:52:00 EDT, Height Start Date: 11/04/22 Status: Ordered Symbicort 80 mcg-4.5 mcg/inh Inhaler (9 sources) Start: 07-29-2024 End: 07-24-2025 take 1 dose by inhalation twice daily Symbicort 80 mcg-4.5 mcg/inh Inhaler Dose = 2 puff(s), Inhalation, BID, # 30.6 gram(s), 3 Refill(s), Pharmacy: [facility], 182, cm, 06/12/24 13:53:00 EST, Height, kg, 06/12/24 13:53:00 EST, Dosing Weight Start Date: 07/29/24 Stop Date: 07/24/25 Status: Ordered Quantity: 30.6 Unit: g Repeat number: 4 Start: 04-08-2024 End: 08-06-2024 take 1 dose by inhalation twice daily Symbicort 80 mcg-4.5 mcg/inh Inhaler Dose = 2 puff(s), Inhalation, BID, # 10.2 gram(s), 3 Refill(s), Pharmacy: [facility], 175, cm, 04/01/24 13:03:00 EST, Height, kg, 04/01/24 13:03:00 EST, Dosing Weight Start Date: 04/08/24 Stop Date: 08/06/24 Status: Ordered Quantity: 10.2 Unit: g Repeat number: 4 Start: 12-12-2023 End: 04-10-2024 take 1 dose by inhalation twice daily Symbicort 80 mcg-4.5 mcg/inh Inhaler Dose = 2 puff(s), Inhalation, BID, # 10.2 gram(s), 3 Refill(s), Pharmacy: [facility], 177.8, cm, 11/28/23 13:54:00 EDT, [...] qHS, # 90 tab(s), 3 Refill(s), Pharmacy: [facility]/pharmacy #[id number], 177.8, cm, 10/09/24 13:44:00 EDT, Height, kg, 10/09/24 13:44:00 EDT, Dosing Weight Start Date: 10/09/24 Status: Ordered Quantity: 90.0 Unit: tab(s) Repeat number: 4 Start: 09-19-2024 traZODone 100 mg oral tablet Dose : 100 mg = 1 tab(s), Oral, qHS, # 90 tab(s), 2 Refill(s), Pharmacy: [facility]/pharmacy #[id number], 175, cm, 09/05/24 16:01:00 EDT, Height, kg, 09/05/24 16:01:00 EDT, Dosing Weight Start Date: 09/19/24 Status: Ordered Quantity: 90.0 Unit: tab(s) Repeat number: 3 Start: 12-12-2023 traZODone 100 mg oral tablet Dose : 100 mg = 1 tab(s), Oral, qHS, # 90 tab(s), 3 Refill(s), Pharmacy: [facility], 177.8, cm, 11/28/23 13:54:00 EDT, Height, kg, 11/28/23 13:54:00 EDT, Dosing Weight Start Date: 12/12/23 Status: Ordered Quantity: 90.0 Unit: tab(s) Repeat number: 4 Start: 08-08-2023 traZODone 100 mg oral tablet Dose : 100 mg = 1 tab(s), Oral, qHS, # 90 tab(s), 3 Refill(s), Pharmacy: [facility] #[id number], 178.5, cm, 08/08/23 13:32:00 EDT, Height, kg, 08/08/23 13:32:00 EDT, Dosing Weight Start Date: 08/08/23 Status: Ordered Start: 12-13-2022 End: 04-12-2023 traZODone 100 mg oral tablet Dose : 100 mg = 1 tab(s), Oral, qHS, # 90 tab(s), 3 Refill(s), [facility]: [facility] #[id number], 175.3, cm, 12/23/22 6:37:00 EDT, Height, kg, 12/23/22 6:38:00 EDT, Dosing Weight Start Date: 01/31/23 Status: Ordered Start: 11-08-2022 End: 02-06-2023 traZODone 50 mg oral tablet Dose : 50 mg = 1 tab(s), Oral, qHS, # 30 tab(s), 2 Refill(s), Pharmacy: [facility] #[id number], 177, cm, 11/08/22 13:50:00 EDT, Height, kg, [...] 30 gram(s), 0 Refill(s), [facility]: [facility] #[id number], Cream, 175.3, cm, 12/13/22 14:43:00 EDT, Height, [...] 4 EA, 3 Refill(s), generic OZEMPIC, [facility] #[id number], 178.5, cm, 08/08/23 13:32:00 EDT, Height, kg, [...] chew, # 180 tab(s), 0 Refill(s), Pharmacy: [facility]/pharmacy #[id number], Shortness of breath, 175, cm, [...] # 60 tab(s), 3 Refill(s), [facility][id number], Shortness of breath, 175.3, cm, 03/22/23 13:31:00 EDT, Height, kg, 03/22/23 13:31:00 EDT, Dosing Weight Start Date: 03/22/23 Stop Date: 03/29/23 Status: Ordered Start: 12-23-2022 Toprol-XL 50 m g oral tablet, extended release Dose : 50 mg = 1 tab(s), Oral, BID, # 60 tab(s), 6 Refill(s), [facility]acy: [facility] #[id number], 175.3, cm, 12/23/22 6:37:00 EDT, Height, kg, [...] spasm, # 21 tab(s), 3 Refill(s), Pharmacy: [facility], 182, cm, 06/12/24 13:53:00 EST, Height, kg, 06/12/24 13:53:00 EST, Dosing Weight Start Date: 08/26/24 Stop Date: 09/23/24 Status: Ordered Quantity: 21.0 Unit: tab(s) Repeat number: 4 Start: 03-04-2024 tiZANidine 2 m g oral tablet Dose : 2 mg = 1 tab(s), Oral, q8h, PRN as needed for muscle spasm, # 90 tab(s), 2 Refill(s), Pharmacy: [facility], 175, cm, 02/13/24 15:03:00 EDT, Height, kg, 02/13/24 15:03:00 EDT, Dosing Weight Start Date: 03/04/24 Status: Ordered Quantity: 90.0 Unit: tab(s) Repeat number: 3 Start: 01-08-2024 tiZANidine 2 m g oral tablet Dose : 2 mg = 1 tab(s), Oral, q8h, PRN as needed for muscle spasm, # 90 tab(s), 2 Refill(s), [facility], 177.8, cm, 11/28/23 13:54:00 EDT, [...] sources) Long-term current use of anticoagulant; 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: [assisted (current) use of anticoagulants] Episodic Other aftercare (1 source) 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, [address] Calcium [Mass/Vol] 9.0 mg/dL Normal 7.6-11.0 [facility] Comment on above: Order Comment: 210.1 Performed By: #### L 500.2500, L100.0100, L501.5200 #### [facility] [address] [place], [address] Chloride [Moles/Vol] 101 mmol/L Normal 98-108 [facility] Comment on above: Order Comment: 210.1 Performed By: #### L 500.2500, L100.0100, L501.5200 #### [facility] [address] [place], [address] CO2 [Moles/Vol] 28.1 mmol/L Normal 21.0-32.0 [facility] Comment on above: Order Comment: 210.1 Performed By: #### L 500.2500, L100.0100, L501.5200 #### [facility] [address] [place], [address] Creatinine [Mass/Vol] 0.80 mg/dL Normal 0.70-1.20 [facility] Comment on above: Order Comment: 210.1 Performed By: #### L 500.2500, L100.0100, L501.5200 #### [facility] [address] [place], [address] GAP 10 Normal 5-15 [facility] Comment on above: Order Comment: 210.1 Performed By: #### L 500.2500, L100.0100, L501.5200 #### [facility] [address] [place], [address] GFR/1.73 sq M.predicted among non-blacks MDRD (S/P/Bld) [Vol rate/Area] 106 mL/min/{1.73_m2} Normal >60 [facility] Comment on above: Order Comment: 210.1 Result Comment: mL/m in/1.73m2 CKD-EPI Creatinine Equation (2020) Performed By: #### L 500.2500, L100.0100, L501.5200 #### [facility] [address] [place], [address] Glucose [Mass/Vol] 96 mg/dL Normal 70-99 [facility] Comment on above: Order Comment: 210.1 Performed By: #### L 500.2500, L100.0100, L501.5200 #### [facility] [address] [place], [address] Potassium [Moles/Vol] 4.2 mmol/L Normal 3.3-5.1 [facility] Comment on above: Order Comment: 210.1 Result Comment: Hemo lysis present, Results??could be affected. ?? Performed By: #### L 500.2500, L100.0100, L501.5200 #### [facility] [address] [place], [address] Sodium [Moles/Vol] 139 mmol/L Normal 133-145 [facility] Comment on above: Order Comment: 210.1 Performed By: #### L 500.2500, L100.0100, L501.5200 #### [facility] [address] [place], [address] Urea nitrogen [Mass/Vol] 10 mg/dL Normal 4-19 [facility] Comment on above: Order Comment: 210.1 Performed By: #### L 500.2500, L100.0100, L501.5200 #### [facility] [address] [place], [address] CBC W/Diff, Automatedon 06-0 9-202 Absolute Lymph 1.05 X10 3/uL Normal 0.83-4.51 [facility] Comment on above: Order Comment: 210.1 Performed By: #### L 500.2500, L100.0100, L501.5200 #### [facility] [address] [place], [address] Absolute Neut 2.8 X10 3/uL Normal 2.0-7.7 [facility] Comment on above: Order Comment: 210.1 Performed By: #### L 500.2500, L100.0100, L501.5200 #### [facility] [address] [place], [address] Basophils/100 WBC (Bld) 0.9 % Normal 0-1 [facility] Comment on above: Order Comment: 210.1 Performed By: #### L 500.2500, L100.0100, L501.5200 #### [facility] [address] [place], [address] Eosinophils/100 WBC (Bld) 1.6 % Normal 0-5 [facility] Comment on above: Order Comment: 210.1 Performed By: #### L 500.2500, L100.0100, L501.5200 #### [facility] [address] [place], [address] Erythrocyte distribution width (RBC) [Ratio] 15.8 % High 11.6-14.6 [facility] Comment on above: Order Comment: 210.1 Performed By: #### L 500.2500, L100.0100, L501.5200 #### [facility] [address] [place], [address] Hematocrit (Bld) [Volume fraction] 41.8 % Normal 40-54 [facility] Comment on above: Order Comment: 210.1 Performed By: #### L 500.2500, L100.0100, L501.5200 #### [facility] [address] [place], [address] Hemoglobin (Bld) [Mass/Vol] 13.1 g/dL Normal 13.0-16.5 [facility] Comment on above: Order Comment: 210.1 Performed By: #### L 500.2500, L100.0100, L501.5200 #### [facility] [address] [place], [address] IG% 0.400 Normal 0.0-0.9 [facility] Comment on above: Order Comment: 210.1 Result Comment: IG% - Immature Granulocytes (promyelocytes, myelocytes and metamyelocytes) > 1% indicates that a LEFT SHIFT is Present. Performed By: #### L 500.2500, L100.0100, L501.5200 #### [facility] [address] [place], [address] Lymphocytes/100 WBC (Bld) 23.5 % Normal 19-41 [facility] Comment on above: Order Comment: 210.1 Performed By: #### L 500.2500, L100.0100, L501.5200 #### [facility] [address] [place], [address] MCH (RBC) [Entitic mass] 28.6 pg Normal 27.0-32.0 [facility] Comment on above: Order Comment: 210.1 Performed By: #### L 500.2500, L100.0100, L501.5200 #### [facility] [address] [place], [address] MCHC (RBC) [Mass/Vol] 31.3 g/dL Low 32-36 [facility] Comment on above: Order Comment: 210.1 Performed By: #### L 500.2500, L100.0100, L501.5200 #### [facility] [address] [place], [address] MCV (RBC) [Entitic vol] 91.3 fL Normal 80-94 [facility] Comment on above: Order Comment: 210.1 Performed By: #### L 500.2500, L100.0100, L501.5200 #### [facility] [address] [place], [address] Monocytes/100 WBC (Bld) 11.4 % High 0-10 [facility] Comment on above: Order Comment: 210.1 Performed By: #### L 500.2500, L100.0100, L501.5200 #### [facility] [address] [place], [address] Neutrophils/100 WBC (Bld) 62.2 % Normal 47-70 [facility] Comment on above: Order Comment: 210.1 Performed By: #### L 500.2500, L100.0100, L501.5200 #### [facility] [address] [place], [address] Nucleated RBC (Bld) [#/Vol] 0 10*3/uL Normal 0-5 [facility] Comment on above: Order Comment: 210.1 Performed By: #### L 500.2500, L100.0100, L501.5200 #### [facility] [address] [place], [address] Platelet mean volume (Bld) [Entitic vol] 9.7 fL Normal 6.2-12.0 [facility] Comment on above: Order Comment: 210.1 Performed By: #### L 500.2500, L100.0100, L501.5200 #### [facility] [address] [place], [address] Platelets (Bld) [#/Vol] 185 10*3/uL Normal 150-450 [facility] Comment on above: Order Comment: 210.1 Performed By: #### L 500.2500, L100.0100, L501.5200 #### [facility] [address] [place], [address] RBC (Bld) [#/Vol] 4.58 10*6/uL Low 4.6-6.2 [facility] Comment on above: Order Comment: 210.1 Performed By: #### L 500.2500, L100.0100, L501.5200 #### [facility] [address] [place], [address] RDW SD 53.2 fl High 35.1-43.9 [facility] Comment on above: Order Comment: 210.1 Performed By: #### L 500.2500, L100.0100, L501.5200 #### [facility] [address] [place], [address] WBC (Bld) [#/Vol] 4.5 10*3/uL Normal 4.4-11.0 [facility] Comment on above: Order Comment: 210.1 Performed By: #### L 500.2500, L100.0100, L501.5200 #### [facility] [address] [place], [address] Magnesiumon 11-04-2024 Magnesium [Mass/Vol] 2.2 mg/dL Normal 1.5-2.2 [facility] Comment on above: Order Comment: 210.1 Performed By: #### L 500.2500, L100.0100, L501.5200 #### [facility] [address] [place], [address] Hemoglobin A1con 10-30-2024 HbA1c (Bld) [Mass fraction] 5.8 % High <=5.6 [facility] Comment on above: Result Comment: Norm al < 5.7 % Prediabetic 5.7 - 6.4 % Diabetic >or= 6.5 % Please note range changes. Performed By: #### L 500.2500, L100.0100, L501.5200 #### [facility] [address] [place], [address] Lipid Profileon 10-30-2024 CHOL:HDL 3.64 Normal [facility] Comment on above: Performed By: #### L 500.2500, L100.0100, L501.5200 #### [facility] [address] [place], [address] Cholesterol [Mass/Vol] 83 mg/dL Normal <=200 [facility] Comment on above: Result Comment: Chol esterol level, Desirable <200 mg/dL Borderline high cholesterol 200-239 mg/dL High cholesterol >=240 mg/dL Recommendations of the NCEP Adult Treatment Panel for the following risk-cutoff thresholds for the [place] population. Performed By: #### L 500.2500, L100.0100, L501.5200 #### [facility] [address] [place], [address] Cholesterol in HDL [Mass/Vol] 23 mg/dL Low [facility] Comment on above: Result Comment: Fern onal Cholesterol Education Program (NCEP) guidelines: <40 mg/dL: Low HDL-cholesterol (major risk factor for CHD) >= 60 mg/dL: High HDL-cholesterol (negative risk factor for CHD) HDL-cholesterol is affected by a number of factors, e.g. smoking, exercise, hormones, sex and age. Performed By: #### L 500.2500, L100.0100, L501.5200 #### [facility] [address] [place], [address] Cholesterol in LDL [Mass/Vol] 34 mg/dL Normal [facility] Comment on above: Result Comment: Bord htwodc=727-914 mg/dL Higher Rhpt=691 mg/dL or greater Performed By: #### L 500.2500, L100.0100, L501.5200 #### [facility] [address] [place], [address] Cholesterol in VLDL [Mass/Vol] 26 mg/dL Normal 5-40 [facility] Comment on above: Performed By: #### L 500.2500, L100.0100, L501.5200 #### [facility] [address] [place], [address] Triglyceride [Mass/Vol] 129 mg/dL Normal [facility] Comment on above: Result Comment: The drugs N-Acetylcysteine and Metamizole may falsely depress this assay. Normal range: <150 mg/dL Borderline High: 150-199 mg/dL High: 200-499 mg/dL Very High: >500 mg/dL Performed By: #### L 500.2500, L100.0100, L501.5200 #### [facility] [address] [place], [address] Basic Metabolic Profile (BMP )on 10-28-2024 BUN/CRE 13.8 RATIO Normal 10-20 [facility] Comment on above: Order Comment: 210 Performed By: #### L 500.2500, L501.9520, L501.5200, L506.1001, L500.4100, L501.1400, L100.0100 #### [facility] [address] [place], [address] Calcium [Mass/Vol] 8.9 mg/dL Normal 7.6-11.0 [facility] Comment on above: Order Comment: 210 Performed By: #### L 500.2500, L501.9520, L501.5200, L506.1001, L500.4100, L501.1400, L100.0100 #### [facility] [address] [place], [address] Chloride [Moles/Vol] 98 mmol/L Normal 98-108 [facility] Comment on above: Order Comment: 210 Performed By: #### L 500.2500, L501.9520, L501.5200, L506.1001, L500.4100, L501.1400, L100.0100 #### [facility] [address] [place], [address] CO2 [Moles/Vol] 27.1 mmol/L Normal 21.0-32.0 [facility] Comment on above: Order Comment: 210 Performed By: #### L 500.2500, L501.9520, L501.5200, L506.1001, L500.4100, L501.1400, L100.0100 #### [facility] [address] [place], [address] Creatinine [Mass/Vol] 0.74 mg/dL Normal 0.70-1.20 [facility] Comment on above: Order Comment: 210 Performed By: #### L 500.2500, L501.9520, L501.5200, L506.1001, L500.4100, L501.1400, L100.0100 #### [facility] [address] [place], [address] GAP 10 Normal 5-15 [facility] Comment on above: Order Comment: 210 Performed By: #### L 500.2500, L501.9520, L501.5200, L506.1001, L500.4100, L501.1400, L100.0100 #### [facility] [address] [place], [address] GFR/1.73 sq M.predicted among non-blacks MDRD (S/P/Bld) [Vol rate/Area] 108 mL/min/{1.73_m2} Normal >60 [facility] Comment on above: Order Comment: 210 Result Comment: mL/m in/1.73m2 CKD-EPI Creatinine Equation (2020) Performed By: #### L 500.2500, L501.9520, L501.5200, L506.1001, L500.4100, L501.1400, L100.0100 #### [facility] [address] [place], [address] Glucose [Mass/Vol] 108 mg/dL High 70-99 [facility] Comment on above: Order Comment: 210 Performed By: #### L 500.2500, L501.9520, L501.5200, L506.1001, L500.4100, L501.1400, L100.0100 #### [facility] [address] [place], [address] Potassium [Moles/Vol] 4.1 mmol/L Normal 3.3-5.1 [facility] Comment on above: Order Comment: 210 Performed By: #### L 500.2500, L501.9520, L501.5200, L506.1001, L500.4100, L501.1400, L100.0100 #### [facility] [address] [place], [address] Sodium [Moles/Vol] 135 mmol/L Normal 133-145 [facility] Comment on above: Order Comment: 210 Performed By: #### L 500.2500, L501.9520, L501.5200, L506.1001, L500.4100, L501.1400, L100.0100 #### [facility] [address] [place], [address] Urea nitrogen [Mass/Vol] 10 mg/dL Normal 4-19 [facility] Comment on above: Order Comment: 210 Performed By: #### L 500.2500, L501.9520, L501.5200, L506.1001, L500.4100, L501.1400, L100.0100 #### [facility] [address] [place], [address] CBC W/Diff, Automatedon 06-0 2-2024 Absolute Lymph 1.07 X10 3/uL Normal 0.83-4.51 [facility] Comment on above: Order Comment: 210 Performed By: #### L 500.2500, L501.9520, L501.5200, L506.1001, L500.4100, L501.1400, L100.0100 #### [facility] [address] [place], [address] Absolute Neut 2.8 X10 3/uL Normal 2.0-7.7 [facility] Comment on above: Order Comment: 210 Performed By: #### L 500.2500, L501.9520, L501.5200, L506.1001, L500.4100, L501.1400, L100.0100 #### [facility] [address] [place], [address] Basophils/100 WBC (Bld) 0.7 % Normal 0-1 [facility] Comment on above: Order Comment: 210 Performed By: #### L 500.2500, L501.9520, L501.5200, L506.1001, L500.4100, L501.1400, L100.0100 #### [facility] [address] [place], [address] Eosinophils/100 WBC (Bld) 2.0 % Normal 0-5 [facility] Comment on above: Order Comment: 210 Performed By: #### L 500.2500, L501.9520, L501.5200, L506.1001, L500.4100, L501.1400, L100.0100 #### [facility] [address] [place], [address] Erythrocyte distribution width (RBC) [Ratio] 15.9 % High 11.6-14.6 [facility] Comment on above: Order Comment: 210 Performed By: #### L 500.2500, L501.9520, L501.5200, L506.1001, L500.4100, L501.1400, L100.0100 #### [facility] [address] [place], [address] Hematocrit (Bld) [Volume fraction] 41.2 % Normal 40-54 [facility] Comment on above: Order Comment: 210 Performed By: #### L 500.2500, L501.9520, L501.5200, L506.1001, L500.4100, L501.1400, L100.0100 #### [facility] [address] [place], [address] Hemoglobin (Bld) [Mass/Vol] 13.0 g/dL Normal 13.0-16.5 [facility] Comment on above: Order Comment: 210 Performed By: #### L 500.2500, L501.9520, L501.5200, L506.1001, L500.4100, L501.1400, L100.0100 #### [facility] [address] [place], [address] IG% 0.400 Normal 0.0-0.9 [facility] Comment on above: Order Comment: 210 Result Comment: IG% - Immature Granulocytes (promyelocytes, myelocytes and metamyelocytes) > 1% indicates that a LEFT SHIFT is Present. Performed By: #### L 500.2500, L501.9520, L501.5200, L506.1001, L500.4100, L501.1400, L100.0100 #### [facility] [address] [place], [address] Lymphocytes/100 WBC (Bld) 24.0 % Normal 19-41 [facility] Comment on above: Order Comment: 210 Performed By: #### L 500.2500, L501.9520, L501.5200, L506.1001, L500.4100, L501.1400, L100.0100 #### [facility] [address] [place], [address] MCH (RBC) [Entitic mass] 28.8 pg Normal 27.0-32.0 [facility] Comment on above: Order Comment: 210 Performed By: #### L 500.2500, L501.9520, L501.5200, L506.1001, L500.4100, L501.1400, L100.0100 #### [facility] [address] [place], [address] MCHC (RBC) [Mass/Vol] 31.6 g/dL Low 32-36 [facility] Comment on above: Order Comment: 210 Performed By: #### L 500.2500, L501.9520, L501.5200, L506.1001, L500.4100, L501.1400, L100.0100 #### [facility] [address] [place], [address] MCV (RBC) [Entitic vol] 91.2 fL Normal 80-94 [facility] Comment on above: Order Comment: 210 Performed By: #### L 500.2500, L501.9520, L501.5200, L506.1001, L500.4100, L501.1400, L100.0100 #### [facility] [address] [place], [address] Monocytes/100 WBC (Bld) 11.0 % High 0-10 [facility] Comment on above: Order Comment: 210 Performed By: #### L 500.2500, L501.9520, L501.5200, L506.1001, L500.4100, L501.1400, L100.0100 #### [facility] [address] [place], [address] Neutrophils/100 WBC (Bld) 61.9 % Normal 47-70 [facility] Comment on above: Order Comment: 210 Performed By: #### L 500.2500, L501.9520, L501.5200, L506.1001, L500.4100, L501.1400, L100.0100 #### [facility] [address] [place], [address] Nucleated RBC (Bld) [#/Vol] 0 10*3/uL Normal 0-5 [facility] Comment on above: Order Comment: 210 Performed By: #### L 500.2500, L501.9520, L501.5200, L506.1001, L500.4100, L501.1400, L100.0100 #### [facility] [address] [place], [address] Platelet mean volume (Bld) [Entitic vol] 9.6 fL Normal 6.2-12.0 [facility] Comment on above: Order Comment: 210 Performed By: #### L 500.2500, L501.9520, L501.5200, L506.1001, L500.4100, L501.1400, L100.0100 #### [facility] [address] [place], [address] Platelets (Bld) [#/Vol] 154 10*3/uL Normal 150-450 [facility] Comment on above: Order Comment: 210 Performed By: #### L 500.2500, L501.9520, L501.5200, L506.1001, L500.4100, L501.1400, L100.0100 #### [facility] [address] [place], [address] RBC (Bld) [#/Vol] 4.52 10*6/uL Low 4.6-6.2 [facility] Comment on above: Order Comment: 210 Performed By: #### L 500.2500, L501.9520, L501.5200, L506.1001, L500.4100, L501.1400, L100.0100 #### [facility] [address] [place], [address] RDW SD 53.1 fl High 35.1-43.9 [facility] Comment on above: Order Comment: 210 Performed By: #### L 500.2500, L501.9520, L501.5200, L506.1001, L500.4100, L501.1400, L100.0100 #### [facility] [address] [place], [address] WBC (Bld) [#/Vol] 4.5 10*3/uL Normal 4.4-11.0 [facility] Comment on above: Order Comment: 210 Performed By: #### L 500.2500, L501.9520, L501.5200, L506.1001, L500.4100, L501.1400, L100.0100 #### [facility] [address] [place], [address] Lipid Profileon 10-28-2024 CHOL:HDL 4.07 Normal [facility] Comment on above: Order Comment: 210 Performed By: #### L 500.2500, L501.9520, L501.5200, L506.1001, L500.4100, L501.1400, L100.0100 #### [facility] [address] [place], [address] Cholesterol [Mass/Vol] 95 mg/dL Normal <=200 [facility] Comment on above: Order Comment: 210 Result Comment: Chol esterol level, Desirable <200 mg/dL Borderline high cholesterol 200-239 mg/dL High cholesterol >=240 mg/dL Recommendations of the NCEP Adult Treatment Panel for the following risk-cutoff thresholds for the [place] population. Performed By: #### L 500.2500, L501.9520, L501.5200, L506.1001, L500.4100, L501.1400, L100.0100 #### [facility] [address] [place], [address] Cholesterol in HDL [Mass/Vol] 23 mg/dL Low [facility] Comment on above: Order Comment: 210 Result Comment: Fern onal Cholesterol Education Program (NCEP) guidelines: <40 mg/dL: Low HDL-cholesterol (major risk factor for CHD) >= 60 mg/dL: High HDL-cholesterol (negative risk factor for CHD) HDL-cholesterol is affected by a number of factors, e.g. smoking, exercise, hormones, sex and age. Performed By: #### L 500.2500, L501.9520, L501.5200, L506.1001, L500.4100, L501.1400, L100.0100 #### [facility] [address] [place], [address] Cholesterol in LDL [Mass/Vol] 46 mg/dL Normal [facility] Comment on above: Order Comment: 210 Result Comment: Bord ugigaj=415-623 mg/dL Higher Muic=830 mg/dL or greater Performed By: #### L 500.2500, L501.9520, L501.5200, L506.1001, L500.4100, L501.1400, L100.0100 #### [facility] [address] [place], [address] Cholesterol in VLDL [Mass/Vol] 26 mg/dL Normal 5-40 [facility] Comment on above: Order Comment: 210 Performed By: #### L 500.2500, L501.9520, L501.5200, L506.1001, L500.4100, L501.1400, L100.0100 #### [facility] [address] [place], [address] Triglyceride [Mass/Vol] 129 mg/dL Normal [facility] Comment on above: Order Comment: 210 Result Comment: The drugs N-Acetylcysteine and Metamizole may falsely depress this assay. Normal range: <150 mg/dL Borderline High: 150-199 mg/dL High: 200-499 mg/dL Very High: >500 mg/dL Performed By: #### L 500.2500, L501.9520, L501.5200, L506.1001, L500.4100, L501.1400, L100.0100 #### [facility] [address] [place], [address] Magnesiumon 10-28-2024 Magnesium [Mass/Vol] 2.2 mg/dL Normal 1.5-2.2 [facility] Comment on above: Order Comment: 210 Performed By: #### L 500.2500, L501.9520, L501.5200, L506.1001, L500.4100, L501.1400, L100.0100 #### [facility] [address] [place], [place], [id number] Thyroid Stim Hormone (TSH)on 10-28-2024 TSH 3.370 uIU/mL Normal 0.300-4.200 [facility] Comment on above: Order Comment: 210 Performed By: #### L 500.2500, L501.9520, L501.5200, L506.1001, L500.4100, L501.1400, L100.0100 #### [facility] [address] [place], [address] Uric Acidon 10-28-2024 URIC 5.8 mg/dL Normal 3.5-7.2 [facility] Comment on above: Order Comment: 210 Result Comment: The drugs N-Acetylcysteine and Metamizole may falsely depress this assay. Performed By: #### L 500.2500, L501.9520, L501.5200, L506.1001, L500.4100, L501.1400, L100.0100 #### [facility] [address] [place], [place], [id number] Vitamin D,25 Hydroxyon 10-28 Vitamin D 25-OH < 6.0 Low 30-100 [facility] Comment on above: Order Comment: 210 Result Comment: Colleen min D Status Deficiency: <20 ng/mL (50nmol/L) Insufficiency: 20-30 ng/mL (50-75 nmol/L) Sufficiency: 30-100 ng/mL (75-250 nmol/L) Toxicity: >100 ng/mL (>250 nmol/L) Performed By: #### L 500.2500, L501.9520, L501.5200, L506.1001, L500.4100, L501.1400, L100.0100 #### [facility] [address] [place], [address] CBC-Complete Blood Cnt No Di ffon 10-24-2024 Erythrocyte distribution width (RBC) [Ratio] 15.6 % High 11.6-14.6 [facility] Comment on above: Performed By: #### L 500.2500, L100.0100, L501.5200 #### [facility] [address] [place], [address] Hematocrit (Bld) [Volume fraction] 40.1 % Normal 40-54 [facility] Comment on above: Performed By: #### L 500.2500, L100.0100, L501.5200 #### [facility] [address] [place], [address] Hemoglobin (Bld) [Mass/Vol] 12.7 g/dL Low 13.0-16.5 [facility] Comment on above: Performed By: #### L 500.2500, L100.0100, L501.5200 #### [facility] [address] [place], [address] MCH (RBC) [Entitic mass] 28.7 pg Normal 27.0-32.0 [facility] Comment on above: Performed By: #### L 500.2500, L100.0100, L501.5200 #### [facility] [address] [place], [address] MCHC (RBC) [Mass/Vol] 31.7 g/dL Low 32-36 [facility] Comment on above: Performed By: #### L 500.2500, L100.0100, L501.5200 #### [facility] [address] [place], [address] MCV (RBC) [Entitic vol] 90.7 fL Normal 80-94 [facility] Comment on above: Performed By: #### L 500.2500, L100.0100, L501.5200 #### [facility] [address] [place], [address] Platelet mean volume (Bld) [Entitic vol] 9.3 fL Normal 6.2-12.0 [facility] Comment on above: Performed By: #### L 500.2500, L100.0100, L501.5200 #### [facility] [address] [place], [address] Platelets (Bld) [#/Vol] 155 10*3/uL Normal 150-450 [facility] Comment on above: Performed By: #### L 500.2500, L100.0100, L501.5200 #### [facility] [address] [place], [address] RBC (Bld) [#/Vol] 4.42 10*6/uL Low 4.6-6.2 [facility] Comment on above: Performed By: #### L 500.2500, L100.0100, L501.5200 #### [facility] [address] [place], [address] RDW SD 51.8 fl High 35.1-43.9 [facility] Comment on above: Performed By: #### L 500.2500, L100.0100, L501.5200 #### [facility] [address] [place], [address] WBC (Bld) [#/Vol] 4.6 10*3/uL Normal 4.4-11.0 [facility] Comment on above: Performed By: #### L 500.2500, L100.0100, L501.5200 #### [facility] [address] [place], [address] Comprehensive Metabolic Prof ilon 10-24-2024 Albumin [Mass/Vol] 3.4 g/dL Low 3.5-5.0 [facility] Comment on above: Performed By: #### L 500.2500, L100.0100, L501.5200 #### [facility] [address] [place], [address] Albumin/Globulin [Mass ratio] 1.0 {ratio} Normal 0.9-2.4 [facility] Comment on above: Performed By: #### L 500.2500, L100.0100, L501.5200 #### [facility] [address] [place], [address] ALK PHOS 76 U/L Normal 40-129 [facility] Comment on above: Performed By: #### L 500.2500, L100.0100, L501.5200 #### [facility] [address] [place], [address] ALT [Catalytic activity/Vol] 6 U/L Normal <=46 [facility] Comment on above: Performed By: #### L 500.2500, L100.0100, L501.5200 #### [facility] [address] [place], [address] AST [Catalytic activity/Vol] 18 U/L Normal <=37 [facility] Comment on above: Performed By: #### L 500.2500, L100.0100, L501.5200 #### [facility] [address] [place], [address] Bilirubin [Mass/Vol] 0.31 mg/dL Normal 0.00-1.30 [facility] Comment on above: Performed By: #### L 500.2500, L100.0100, L501.5200 #### [facility] [address] [place], [address] BUN/CRE 14.6 RATIO Normal 10-20 [facility] Comment on above: Performed By: #### L 500.2500, L100.0100, L501.5200 #### [facility] [address] [place], [address] Calcium [Mass/Vol] 9.0 mg/dL Normal 7.6-11.0 [facility] Comment on above: Performed By: #### L 500.2500, L100.0100, L501.5200 #### [facility] [address] [place], [address] Chloride [Moles/Vol] 99 mmol/L Normal 98-108 [facility] Comment on above: Performed By: #### L 500.2500, L100.0100, L501.5200 #### [facility] [address] [place], [address] CO2 [Moles/Vol] 29.2 mmol/L Normal 21.0-32.0 [facility] Comment on above: Performed By: #### L 500.2500, L100.0100, L501.5200 #### [facility] [address] [place], [address] Creatinine [Mass/Vol] 0.65 mg/dL Low 0.70-1.20 [facility] Comment on above: Performed By: #### L 500.2500, L100.0100, L501.5200 #### [facility] [address] [place], [address] GAP 9 Normal 5-15 [facility] Comment on above: Performed By: #### L 500.2500, L100.0100, L501.5200 #### [facility] [address] [place], [address] GFR/1.73 sq M.predicted among non-blacks MDRD (S/P/Bld) [Vol rate/Area] 113 mL/min/{1.73_m2} Normal >60 [facility] Comment on above: Result Comment: mL/m in/1.73m2 CKD-EPI Creatinine Equation (2020) Performed By: #### L 500.2500, L100.0100, L501.5200 #### [facility] [address] [place], [address] Globulin (S) [Mass/Vol] 3.2 g/dL Normal 2.2-4.2 [facility] Comment on above: Performed By: #### L 500.2500, L100.0100, L501.5200 #### [facility] [address] [place], [address] Glucose [Mass/Vol] 113 mg/dL High 70-99 [facility] Comment on above: Performed By: #### L 500.2500, L100.0100, L501.5200 #### [facility] [address] [place], [address] Potassium [Moles/Vol] 3.8 mmol/L Normal 3.3-5.1 [facility] Comment on above: Performed By: #### L 500.2500, L100.0100, L501.5200 #### [facility] [address] [place], [address] Sodium [Moles/Vol] 137 mmol/L Normal 133-145 [facility] Comment on above: Performed By: #### L 500.2500, L100.0100, L501.5200 #### [facility] [address] [place], [address] T PROT 6.6 g/dL Normal 5.9-8.4 [facility] Comment on above: Performed By: #### L 500.2500, L100.0100, L501.5200 #### [facility] [address] [place], [address] Urea nitrogen [Mass/Vol] 10 mg/dL Normal 4-19 [facility] Comment on above: Performed By: #### L 500.2500, L100.0100, L501.5200 #### [facility] [address] [place], [address] LABORATORYOrdered By: Samanta Morin on 10-23-2024 Blood Glucose Testing Reason Routine (10/23/24 8:27 PM) [facility] Glucose [Mass/Vol] 168 mg/dL High 70 - 110 mg/dL [facility] LABORATORYOrdered By: Sarah Carrillo on 10-23-2024 Blood Glucose Testing Reason Routine (10/23/24 5:31 PM) [facility] Glucose [Mass/Vol] 146 mg/dL High 70 - 110 mg/dL [facility] LABORATORYOrdered By: Gianna Mendez on 10-23-2024 Blood Glucose Testing Reason Routine (10/23/24 12:15 PM) [facility] Glucose [Mass/Vol] 154 mg/dL High 70 - 110 mg/dL [facility] Comment on above: Result Comment: noti fied nurse SHAHEEN Staples .Auto Diffon 10-20-2024 Basophil, Absolute 0.0 10 3/mcL Normal 0.0-0.3 [facility] Comment on above: Performed By: #### M G, GFR, ANEU, ADIFF, CBC, CMP, A1C, LIPID #### [facility] [address] [place] [id number] Basophils/100 WBC (Bld) 0.6 % Normal 0.0-2.5 [facility] Comment on above: Performed By: #### M G, GFR, ANEU, ADIFF, CBC, CMP, A1C, LIPID #### [address] [address] Eosinophil, Absolute 0.1 10 3/mcL Normal 0.0-0.7 [facility] Comment on above: Performed By: #### M G, GFR, ANEU, ADIFF, CBC, CMP, A1C, LIPID #### [address] [address] Eosinophils/100 WBC (Bld) 1.5 % Normal 0.0-6.0 [facility] Comment on above: Performed By: #### M G, GFR, ANEU, ADIFF, CBC, CMP, A1C, LIPID #### [address] [address] Lymphocyte, Absolute 1.0 10 3/mcL Normal 0.9-4.3 [facility] Comment on above: Performed By: #### M G, GFR, ANEU, ADIFF, CBC, CMP, A1C, LIPID #### [address] [address] Lymphocytes/100 WBC (Bld) 21.2 % Normal 20.0-40.0 [facility] Comment on above: Performed By: #### M G, GFR, ANEU, ADIFF, CBC, CMP, A1C, LIPID #### [address] [address] Monocyte, Absolute 0.6 10 3/mcL Normal 0.1-1.4 [facility] Comment on above: Performed By: #### M G, GFR, ANEU, ADIFF, CBC, CMP, A1C, LIPID #### [address] [address] Monocytes/100 WBC (Bld) 11.6 % Normal 2.0-13.0 [facility] Comment on above: Performed By: #### M G, GFR, ANEU, ADIFF, CBC, CMP, A1C, LIPID #### [address] [address] Neutrophils/100 WBC (Bld) 65.1 % Normal 50.0-75.0 [facility] Comment on above: Performed By: #### M G, GFR, ANEU, ADIFF, CBC, CMP, A1C, LIPID #### [address] [address] .GFRon 10-20-2024 Estimated Glomerular Filtration Rate 108 ml/min/1.73sqm Normal [facility] Comment on above: Result Comment: Stages [...] CBC, CMP, A1C, LIPID #### [place] [id number] .NEUABSon 10-20-2024 Neutrophil, Absolute 3.2 10 3/mcL Normal 2.3-8.1 [facility] Comment on above: Performed By: #### M G, GFR, ANEU, ADIFF, CBC, CMP, A1C, LIPID #### [address] [address] BMPon 10-20-2024 BUN/Creatinine Ratio 10.8 ratio Normal 10.0-22.0 [facility] Comment on above: Performed By: #### M G, GFR, ANEU, ADIFF, CBC, CMP, A1C, LIPID #### [address] [address] Calcium [Mass/Vol] 8.7 mg/dL Normal 8.7-10.4 [facility] Comment on above: Performed By: #### M G, GFR, ANEU, ADIFF, CBC, CMP, A1C, LIPID #### [address] [address] Chloride [Moles/Vol] 97 mmol/L Low 98-110 [facility] Comment on above: Performed By: #### M G, GFR, ANEU, ADIFF, CBC, CMP, A1C, LIPID #### [address] [address] CO2 [Moles/Vol] 37 mmol/L High 22-32 [facility] Comment on above: Performed By: #### M G, GFR, ANEU, ADIFF, CBC, CMP, A1C, LIPID #### [address] [address] Creatinine [Mass/Vol] 0.74 mg/dL Normal 0.60-1.[address] [facility] Comment on above: Result Comment: Test ing performed on ChaoWIFI analyzer using enzymatic creatinine methodology. Performed By: #### M G, GFR, ANEU, ADIFF, CBC, CMP, A1C, LIPID #### [address] [address] Electrolyte Balance 4.0 mEq/L Normal 4.0-15.0 [facility] Comment on above: Performed By: #### M G, GFR, ANEU, ADIFF, CBC, CMP, A1C, LIPID #### [address] [address] Glucose [Mass/Vol] 116 mg/dL High 70-110 [facility] Comment on above: Performed By: #### M G, GFR, ANEU, ADIFF, CBC, CMP, A1C, LIPID #### [address] [address] Potassium [Moles/Vol] 3.5 mmol/L Normal 3.5-5.[address] [facility] Comment on above: Performed By: #### M G, GFR, ANEU, ADIFF, CBC, CMP, A1C, LIPID #### [address] [address] Sodium [Moles/Vol] 138 mmol/L Normal 136-145 [facility] Comment on above: Performed By: #### M G, GFR, ANEU, ADIFF, CBC, CMP, A1C, LIPID #### [address] [address] Urea nitrogen [Mass/Vol] 8.0 mg/dL Normal 8.0-22.0 [facility] Comment on above: Performed By: #### M G, GFR, ANEU, ADIFF, CBC, CMP, A1C, LIPID #### [place] [id number] CBCon 10-20-2024 Erythrocyte distribution width (RBC) [Ratio] 16.8 % High 11.5-15.5 [facility] Comment on above: Performed By: #### M G, GFR, ANEU, ADIFF, CBC, CMP, A1C, LIPID #### [place] [address] Hematocrit (Bld) [Volume fraction] 41.3 % Normal 40.0-52.0 [facility] Comment on above: Performed By: #### M G, GFR, ANEU, ADIFF, CBC, CMP, A1C, LIPID #### [place] [address] Hgb 13.4 G/dL Normal 13.0-17.5 [facility] Comment on above: Performed By: #### M G, GFR, ANEU, ADIFF, CBC, CMP, A1C, LIPID #### [place] [address] MCH (RBC) [Entitic mass] 28.7 pg Normal 27.0-33.0 [facility] Comment on above: Performed By: #### M G, GFR, ANEU, ADIFF, CBC, CMP, A1C, LIPID #### [place] [id number] MCHC 32.4 G/dL Normal 32.0-36.0 [facility] Comment on above: Performed By: #### M G, GFR, ANEU, ADIFF, CBC, CMP, A1C, LIPID #### [place] [address] MCV (RBC) [Entitic vol] 88.5 fL Normal 81.0-100.0 [facility] Comment on above: Performed By: #### M G, GFR, ANEU, ADIFF, CBC, CMP, A1C, LIPID #### [place] [address] Platelet 175 10 3/mcL Normal 150-450 [facility] Comment on above: Performed By: #### M G, GFR, ANEU, ADIFF, CBC, CMP, A1C, LIPID #### [place] [id number] [place] [address] Platelet mean volume (Bld) [Entitic vol] 7.3 fL Normal 6.4-10.5 [facility] Comment on above: Performed By: #### M G, GFR, ANEU, ADIFF, CBC, CMP, A1C, LIPID #### [place] [id number] [place] [address] RBC 4.67 10 6/mcL Normal 4.50-6.00 [facility] Comment on above: Performed By: #### M G, GFR, ANEU, ADIFF, CBC, CMP, A1C, LIPID #### [place] [id number] [place] [address] WBC 4.8 10 3/mcL Normal 4.5-10.8 [facility] Comment on above: Performed By: #### M G, GFR, ANEU, ADIFF, CBC, CMP, A1C, LIPID #### [place] [address] LABORATORYOrdered By: SYSTEM SYSTEM on 10-20-2024 Basophils [...] above: Interpretive Data: T esting performed on ChaoWIFI analyzer using enzymatic creatinine methodology. Electrolyte Balance [...] Basophil, Absolute 0.0 10 3/mcL Normal 0.0-0.3 [facility] Comment on above: Performed By: #### M G, GFR, ANEU, ADIFF, CBC, CMP, A1C, LIPID #### [address] [address] Basophils/100 WBC (Bld) 0.7 % Normal 0.0-2.5 [facility] Comment on above: Performed By: #### M G, GFR, ANEU, ADIFF, CBC, CMP, A1C, LIPID #### [address] [address] Eosinophil, Absolute 0.1 10 3/mcL Normal 0.0-0.7 [facility] Comment on above: Performed By: #### M G, GFR, ANEU, ADIFF, CBC, CMP, A1C, LIPID #### [address] [address] Eosinophils/100 WBC (Bld) 1.9 % Normal 0.0-6.0 [facility] Comment on above: Performed By: #### M G, GFR, ANEU, ADIFF, CBC, CMP, A1C, LIPID #### [address] [address] Lymphocyte, Absolute 1.0 10 3/mcL Normal 0.9-4.3 [facility] Comment on above: Performed By: #### M G, GFR, ANEU, ADIFF, CBC, CMP, A1C, LIPID #### [address] [address] Lymphocytes/100 WBC (Bld) 18.3 % Low 20.0-40.0 [facility] Comment on above: Performed By: #### M G, GFR, ANEU, ADIFF, CBC, CMP, A1C, LIPID #### [address] [address] Monocyte, Absolute 0.5 10 3/mcL Normal 0.1-1.4 [facility] Comment on above: Performed By: #### M G, GFR, ANEU, ADIFF, CBC, CMP, A1C, LIPID #### [address] [address] Monocytes/100 WBC (Bld) 9.1 % Normal 2.0-13.0 [facility] Comment on above: Performed By: #### M G, GFR, ANEU, ADIFF, CBC, CMP, A1C, LIPID #### [address] [address] Neutrophils/100 WBC (Bld) 70.0 % Normal 50.0-75.0 [facility] Comment on above: Performed By: #### M G, GFR, ANEU, ADIFF, CBC, CMP, A1C, LIPID #### [address] [address] .GFRon 10-19-2024 Estimated Glomerular Filtration Rate 109 ml/min/1.73sqm Normal [facility] Comment on above: Result Comment: Stages [...] ANEU, ADIFF, CBC, CMP, A1C, LIPID #### [address] [address] .NEUABSon 10-19-2024 Neutrophil, Absolute 3.8 10 3/mcL Normal 2.3-8.1 [facility] Comment on above: Performed By: #### M G, GFR, ANEU, ADIFF, CBC, CMP, A1C, LIPID #### [address] [address] BMPon 10-19-2024 BUN/Creatinine Ratio 11.1 ratio Normal 10.0-22.0 [facility] Comment on above: Performed By: #### M G, GFR, ANEU, ADIFF, CBC, CMP, A1C, LIPID #### [address] [address] Calcium [Mass/Vol] 8.7 mg/dL Normal 8.7-10.4 [facility] Comment on above: Performed By: #### M G, GFR, ANEU, ADIFF, CBC, CMP, A1C, LIPID #### [address] [address] Chloride [Moles/Vol] 100 mmol/L Normal 98-110 [facility] Comment on above: Performed By: #### M G, GFR, ANEU, ADIFF, CBC, CMP, A1C, LIPID #### [address] [address] CO2 [Moles/Vol] 33 mmol/L High 22-32 [facility] Comment on above: Performed By: #### M G, GFR, ANEU, ADIFF, CBC, CMP, A1C, LIPID #### [address] [address] Creatinine [Mass/Vol] 0.72 mg/dL Normal 0.60-1.[address] [facility] Comment on above: Result Comment: Test ing performed on ChaoWIFI analyzer using enzymatic creatinine methodology. Performed By: #### M G, GFR, ANEU, ADIFF, CBC, CMP, A1C, LIPID #### [place] [id number] Electrolyte Balance 4.0 mEq/L Normal 4.0-15.0 [facility] Comment on above: Performed By: #### M G, GFR, ANEU, ADIFF, CBC, CMP, A1C, LIPID #### [place] [id number] Glucose [Mass/Vol] 181 mg/dL High 70-110 [facility] Comment on above: Performed By: #### M G, GFR, ANEU, ADIFF, CBC, CMP, A1C, LIPID #### [place] [id number] Potassium [Moles/Vol] 3.5 mmol/L Normal 3.5-5.[address] [facility] Comment on above: Performed By: #### M G, GFR, ANEU, ADIFF, CBC, CMP, A1C, LIPID #### [place] [id number] Sodium [Moles/Vol] 137 mmol/L Normal 136-145 [facility] Comment on above: Performed By: #### M G, GFR, ANEU, ADIFF, CBC, CMP, A1C, LIPID #### [place] [id number] Urea nitrogen [Mass/Vol] 8.0 mg/dL Normal 8.0-22.0 [facility] Comment on above: Performed By: #### M G, GFR, ANEU, ADIFF, CBC, CMP, A1C, LIPID #### [address] [id number] CBCon 10-19-2024 Erythrocyte distribution width (RBC) [Ratio] 17.3 % High 11.5-15.5 [facility] Comment on above: Performed By: #### M G, GFR, ANEU, ADIFF, CBC, CMP, A1C, LIPID #### [place] [id number] Hematocrit (Bld) [Volume fraction] 40.5 % Normal 40.0-52.0 [facility] Comment on above: Performed By: #### M G, GFR, ANEU, ADIFF, CBC, CMP, A1C, LIPID #### [place] [address] Hgb 13.0 G/dL Normal 13.0-17.5 [facility] Comment on above: Performed By: #### M G, GFR, ANEU, ADIFF, CBC, CMP, A1C, LIPID #### [place] [address] MCH (RBC) [Entitic mass] 28.6 pg Normal 27.0-33.0 [facility] Comment on above: Performed By: #### M G, GFR, ANEU, ADIFF, CBC, CMP, A1C, LIPID #### [place] [address] MCHC 32.1 G/dL Normal 32.0-36.0 [facility] Comment on above: Performed By: #### M G, GFR, ANEU, ADIFF, CBC, CMP, A1C, LIPID #### [place] [address] MCV (RBC) [Entitic vol] 89.2 fL Normal 81.0-100.0 [facility] Comment on above: Performed By: #### M G, GFR, ANEU, ADIFF, CBC, CMP, A1C, LIPID #### [place] [address] Platelet 171 10 3/mcL Normal 150-450 [facility] Comment on above: Performed By: #### M G, GFR, ANEU, ADIFF, CBC, CMP, A1C, LIPID #### [place] [address] Platelet mean volume (Bld) [Entitic vol] 7.6 fL Normal 6.4-10.5 [facility] Comment on above: Performed By: #### M G, GFR, ANEU, ADIFF, CBC, CMP, A1C, LIPID #### [place] [address] RBC 4.54 10 6/mcL Normal 4.50-6.00 [facility] Comment on above: Performed By: #### M G, GFR, ANEU, ADIFF, CBC, CMP, A1C, LIPID #### [address] [address] WBC 5.4 10 3/mcL Normal 4.5-10.8 [facility] Comment on above: Performed By: #### M G, GFR, ANEU, ADIFF, CBC, CMP, A1C, LIPID #### [address] [id number] LABORATORYOrdered By: SYSTEM SYSTEM on 10-19-2024 Basophils [...] above: Interpretive Data: T esting performed on ChaoWIFI analyzer using enzymatic creatinine methodology. Electrolyte Balance [...] Basophil, Absolute 0.0 10 3/mcL Normal 0.0-0.3 [facility] Comment on above: Performed By: #### M G, GFR, ANEU, ADIFF, CBC, CMP, A1C, LIPID #### [address] [address] Basophils/100 WBC (Bld) 0.6 % Normal 0.0-2.5 [facility] Comment on above: Performed By: #### M G, GFR, ANEU, ADIFF, CBC, CMP, A1C, LIPID #### [address] [address] Eosinophil, Absolute 0.1 10 3/mcL Normal 0.0-0.7 [facility] Comment on above: Performed By: #### M G, GFR, ANEU, ADIFF, CBC, CMP, A1C, LIPID #### [address] [address] Eosinophils/100 WBC (Bld) 1.7 % Normal 0.0-6.0 [facility] Comment on above: Performed By: #### M G, GFR, ANEU, ADIFF, CBC, CMP, A1C, LIPID #### [address] [address] Lymphocyte, Absolute 1.2 10 3/mcL Normal 0.9-4.3 [facility] Comment on above: Performed By: #### M G, GFR, ANEU, ADIFF, CBC, CMP, A1C, LIPID #### [address] [address] Lymphocytes/100 WBC (Bld) 19.0 % Low 20.0-40.0 [facility] Comment on above: Performed By: #### M G, GFR, ANEU, ADIFF, CBC, CMP, A1C, LIPID #### [address] [address] Monocyte, Absolute 0.9 10 3/mcL Normal 0.1-1.4 [facility] Comment on above: Performed By: #### M G, GFR, ANEU, ADIFF, CBC, CMP, A1C, LIPID #### [address] [address] Monocytes/100 WBC (Bld) 14.1 % High 2.0-13.0 [facility] Comment on above: Performed By: #### M G, GFR, ANEU, ADIFF, CBC, CMP, A1C, LIPID #### [address] [address] Neutrophils/100 WBC (Bld) 64.6 % Normal 50.0-75.0 [facility] Comment on above: Performed By: #### M G, GFR, ANEU, ADIFF, CBC, CMP, A1C, LIPID #### [address] [address] Basophil, Absolute 0.0 10 3/mcL Normal 0.0-0.3 [facility] Comment on above: Performed By: #### M G, GFR, ANEU, ADIFF, CBC, CMP, A1C, LIPID #### [address] [address] Basophils/100 WBC (Bld) 0.4 % Normal 0.0-2.5 [facility] Comment on above: Performed By: #### M G, GFR, ANEU, ADIFF, CBC, CMP, A1C, LIPID #### [address] [address] Eosinophil, Absolute 0.1 10 3/mcL Normal 0.0-0.7 [facility] Comment on above: Performed By: #### M G, GFR, ANEU, ADIFF, CBC, CMP, A1C, LIPID #### [address] [address] Eosinophils/100 WBC (Bld) 1.2 % Normal 0.0-6.0 [facility] Comment on above: Performed By: #### M G, GFR, ANEU, ADIFF, CBC, CMP, A1C, LIPID #### [address] [address] Lymphocyte, Absolute 0.7 10 3/mcL Low 0.9-4.3 [facility] Comment on above: Performed By: #### M G, GFR, ANEU, ADIFF, CBC, CMP, A1C, LIPID #### [address] [address] Lymphocytes/100 WBC (Bld) 16.1 % Low 20.0-40.0 [facility] Comment on above: Performed By: #### M G, GFR, ANEU, ADIFF, CBC, CMP, A1C, LIPID #### [address] [address] Monocyte, Absolute 0.5 10 3/mcL Normal 0.1-1.4 [facility] Comment on above: Performed By: #### M G, GFR, ANEU, ADIFF, CBC, CMP, A1C, LIPID #### [address] [address] Monocytes/100 WBC (Bld) 11.8 % Normal 2.0-13.0 [facility] Comment on above: Performed By: #### M G, GFR, ANEU, ADIFF, CBC, CMP, A1C, LIPID #### [address] [address] Neutrophils/100 WBC (Bld) 70.5 % Normal 50.0-75.0 [facility] Comment on above: Performed By: #### M G, GFR, ANEU, ADIFF, CBC, CMP, A1C, LIPID #### [address] [address] .GFRon 10-18-2024 Estimated Glomerular Filtration Rate 112 ml/min/1.73sqm Normal [facility] Comment on above: Result Comment: Stages [...] ANEU, ADIFF, CBC, CMP, A1C, LIPID #### [place] [address] Estimated Glomerular Filtration Rate 114 ml/min/1.73sqm Normal [facility] Comment on above: Result Comment: Stages [...] ANEU, ADIFF, CBC, CMP, A1C, LIPID #### [place] [address] .NEUABSon 10-18-2024 Neutrophil, Absolute 3.9 10 3/mcL Normal 2.3-8.1 [facility] Comment on above: Performed By: #### M G, GFR, ANEU, ADIFF, CBC, CMP, A1C, LIPID #### [place] [address] Neutrophil, Absolute 3.3 10 3/mcL Normal 2.3-8.1 [facility] Comment on above: Performed By: #### M G, GFR, ANEU, ADIFF, CBC, CMP, A1C, LIPID #### [place] [id number] BMPon 10-18-2024 BUN/Creatinine Ratio 9.0 ratio Low 10.0-22.0 [facility] Comment on above: Performed By: #### M G, GFR, ANEU, ADIFF, CBC, CMP, A1C, LIPID #### [address] [address] Calcium [Mass/Vol] 8.7 mg/dL Normal 8.7-10.4 [facility] Comment on above: Performed By: #### M G, GFR, ANEU, ADIFF, CBC, CMP, A1C, LIPID #### [address] [address] Chloride [Moles/Vol] 99 mmol/L Normal 98-110 [facility] Comment on above: Performed By: #### M G, GFR, ANEU, ADIFF, CBC, CMP, A1C, LIPID #### [address] [address] CO2 [Moles/Vol] 33 mmol/L High 22-32 [facility] Comment on above: Performed By: #### M G, GFR, ANEU, ADIFF, CBC, CMP, A1C, LIPID #### [address] [address] Creatinine [Mass/Vol] 0.67 mg/dL Normal 0.60-1.[address] [facility] Comment on above: Result Comment: Test ing performed on ChaoWIFI analyzer using enzymatic creatinine methodology. Performed By: #### M G, GFR, ANEU, ADIFF, CBC, CMP, A1C, LIPID #### [address] [address] Electrolyte Balance 5.0 mEq/L Normal 4.0-15.0 [facility] Comment on above: Performed By: #### M G, GFR, ANEU, ADIFF, CBC, CMP, A1C, LIPID #### [address] [address] Glucose [Mass/Vol] 115 mg/dL High 70-110 [facility] Comment on above: Performed By: #### M G, GFR, ANEU, ADIFF, CBC, CMP, A1C, LIPID #### [address] [address] Potassium [Moles/Vol] 3.4 mmol/L Low 3.5-5.[address] [facility] Comment on above: Performed By: #### M G, GFR, ANEU, ADIFF, CBC, CMP, A1C, LIPID #### [address] [address] Sodium [Moles/Vol] 137 mmol/L Normal 136-145 [facility] Comment on above: Performed By: #### M G, GFR, ANEU, ADIFF, CBC, CMP, A1C, LIPID #### [address] [address] Urea nitrogen [Mass/Vol] 6.0 mg/dL Low 8.0-22.0 [facility] Comment on above: Performed By: #### M G, GFR, ANEU, ADIFF, CBC, CMP, A1C, LIPID #### [address] [address] BUN/Creatinine Ratio Unable to Calculate Normal 10.0-2 2.0 [facility] Comment on above: Order Comment: Pleas e draw daily labs at 3 AM for 3 days Result Comment: Unab le to calculate this test result accurately. Results used to calculate this test are outside the reportable range. Performed By: #### M G, GFR, ANEU, ADIFF, CBC, CMP, A1C, LIPID #### [address] [address] Urea nitrogen [Mass/Vol] mg/dL Low 8.0-22.0 [facility] Comment on above: Order Comment: Pleas e draw daily labs at 3 AM for 3 days Performed By: #### M G, GFR, ANEU, ADIFF, CBC, CMP, A1C, LIPID #### [address] [address] Calcium [Mass/Vol] 9.2 mg/dL Normal 8.7-10.4 [facility] Comment on above: Order Comment: Pleas e draw daily labs at 3 AM for 3 days Performed By: #### M G, GFR, ANEU, ADIFF, CBC, CMP, A1C, LIPID #### [address] [address] Chloride [Moles/Vol] 101 mmol/L Normal 98-110 [facility] Comment on above: Order Comment: Pleas e draw daily labs at 3 AM for 3 days Performed By: #### M G, GFR, ANEU, ADIFF, CBC, CMP, A1C, LIPID #### [address] [address] CO2 [Moles/Vol] 33 mmol/L High 22-32 [facility] Comment on above: Order Comment: Pleas e draw daily labs at 3 AM for 3 days Performed By: #### M G, GFR, ANEU, ADIFF, CBC, CMP, A1C, LIPID #### [address] [address] Creatinine [Mass/Vol] 0.63 mg/dL Normal 0.60-1.[address] [facility] Comment on above: Order Comment: Pleas e draw daily labs at 3 AM for 3 days Result Comment: Test ing performed on ChaoWIFI analyzer using enzymatic creatinine methodology. Performed By: #### M G, GFR, ANEU, ADIFF, CBC, CMP, A1C, LIPID #### [address] [address] Electrolyte Balance 5.0 mEq/L Normal 4.0-15.0 [facility] Comment on above: Order Comment: Pleas e draw daily labs at 3 AM for 3 days Performed By: #### M G, GFR, ANEU, ADIFF, CBC, CMP, A1C, LIPID #### [address] [address] Glucose [Mass/Vol] 110 mg/dL Normal 70-110 [facility] Comment on above: Order Comment: Pleas e draw daily labs at 3 AM for 3 days Performed By: #### M G, GFR, ANEU, ADIFF, CBC, CMP, A1C, LIPID #### [address] [address] Potassium [Moles/Vol] 3.6 mmol/L Normal 3.5-5.[address] [facility] Comment on above: Order Comment: Pleas e draw daily labs at 3 AM for 3 days Performed By: #### M G, GFR, ANEU, ADIFF, CBC, CMP, A1C, LIPID #### [address] [address] Sodium [Moles/Vol] 139 mmol/L Normal 136-145 [facility] Comment on above: Order Comment: Mer gao draw daily labs at 3 AM for 3 days Performed By: #### M G, GFR, ANEU, ADIFF, CBC, CMP, A1C, LIPID #### [address] [address] CBCon 10-18-2024 Erythrocyte distribution width (RBC) [Ratio] 17.3 % High 11.5-15.5 [facility] Comment on above: Performed By: #### M G, GFR, ANEU, ADIFF, CBC, CMP, A1C, LIPID #### [place] [address] Hematocrit (Bld) [Volume fraction] 41.4 % Normal 40.0-52.0 [facility] Comment on above: Performed By: #### M G, GFR, ANEU, ADIFF, CBC, CMP, A1C, LIPID #### [place] [address] Hgb 13.5 G/dL Normal 13.0-17.5 [facility] Comment on above: Performed By: #### M G, GFR, ANEU, ADIFF, CBC, CMP, A1C, LIPID #### [place] [address] MCH (RBC) [Entitic mass] 28.9 pg Normal 27.0-33.0 [facility] Comment on above: Performed By: #### M G, GFR, ANEU, ADIFF, CBC, CMP, A1C, LIPID #### [place] [address] MCHC 32.7 G/dL Normal 32.0-36.0 [facility] Comment on above: Performed By: #### M G, GFR, ANEU, ADIFF, CBC, CMP, A1C, LIPID #### [place] [address] MCV (RBC) [Entitic vol] 88.4 fL Normal 81.0-100.0 [facility] Comment on above: Performed By: #### M G, GFR, ANEU, ADIFF, CBC, CMP, A1C, LIPID #### [place] [id number] Platelet 158 10 3/mcL Normal 150-450 [facility] Comment on above: Performed By: #### M G, GFR, ANEU, ADIFF, CBC, CMP, A1C, LIPID #### [place] [address] Platelet mean volume (Bld) [Entitic vol] 7.9 fL Normal 6.4-10.5 [facility] Comment on above: Performed By: #### M G, GFR, ANEU, ADIFF, CBC, CMP, A1C, LIPID #### [place] [id number] RBC 4.68 10 6/mcL Normal 4.50-6.00 [facility] Comment on above: Performed By: #### M G, GFR, ANEU, ADIFF, CBC, CMP, A1C, LIPID #### [place] [id number] WBC 6.1 10 3/mcL Normal 4.5-10.8 [facility] Comment on above: Performed By: #### M G, GFR, ANEU, ADIFF, CBC, CMP, A1C, LIPID #### [place] [id number] Erythrocyte distribution width (RBC) [Ratio] 16.9 % High 11.5-15.5 [facility] Comment on above: Order Comment: Colle ct blood every day at 3 AM for the next 3 days. Performed By: #### M G, GFR, ANEU, ADIFF, CBC, CMP, A1C, LIPID #### [place] [address] Hematocrit (Bld) [Volume fraction] 41.4 % Normal 40.0-52.0 [facility] Comment on above: Order Comment: Colle ct blood every day at 3 AM for the next 3 days. Performed By: #### M G, GFR, ANEU, ADIFF, CBC, CMP, A1C, LIPID #### [place] [address] Hgb 13.6 G/dL Normal 13.0-17.5 [facility] Comment on above: Order Comment: Colle ct blood every day at 3 AM for the next 3 days. Performed By: #### M G, GFR, ANEU, ADIFF, CBC, CMP, A1C, LIPID #### [place] [address] MCH (RBC) [Entitic mass] 29.0 pg Normal 27.0-33.0 [facility] Comment on above: Order Comment: Colle ct blood every day at 3 AM for the next 3 days. Performed By: #### M G, GFR, ANEU, ADIFF, CBC, CMP, A1C, LIPID #### [place] [address] MCHC 32.8 G/dL Normal 32.0-36.0 [facility] Comment on above: Order Comment: Colle ct blood every day at 3 AM for the next 3 days. Performed By: #### M G, GFR, ANEU, ADIFF, CBC, CMP, A1C, LIPID #### [place] [address] MCV (RBC) [Entitic vol] 88.3 fL Normal 81.0-100.0 [facility] Comment on above: Order Comment: Colle ct blood every day at 3 AM for the next 3 days. Performed By: #### M G, GFR, ANEU, ADIFF, CBC, CMP, A1C, LIPID #### [place] [address] Platelet 127 10 3/mcL Low 150-450 [facility] Comment on above: Order Comment: Colle ct blood every day at 3 AM for the next 3 days. Performed By: #### M G, GFR, ANEU, ADIFF, CBC, CMP, A1C, LIPID #### [place] [address] Platelet mean volume (Bld) [Entitic vol] 7.7 fL Normal 6.4-10.5 [facility] Comment on above: Order Comment: Colle ct blood every day at 3 AM for the next 3 days. Performed By: #### M G, GFR, ANEU, ADIFF, CBC, CMP, A1C, LIPID #### [place] [address] RBC 4.70 10 6/mcL Normal 4.50-6.00 [facility] Comment on above: Order Comment: Colle ct blood every day at 3 AM for the next 3 days. Performed By: #### M G, GFR, ANEU, ADIFF, CBC, CMP, A1C, LIPID #### [facility] [address] [place] [id number] WBC 4.6 10 3/mcL Normal 4.5-10.8 [facility] Comment on above: Order Comment: Colle ct blood every day at 3 AM for the next 3 days. Performed By: #### M G, GFR, ANEU, ADIFF, CBC, CMP, A1C, LIPID #### [place] [id number] [place] [id number] LABORATORYOrdered By: SYSTEM SYSTEM on 10-18-2024 Basophils [...] above: Interpretive Data: T esting performed on ChaoWIFI analyzer using enzymatic creatinine methodology. Electrolyte Balance [...] Basophil, Absolute 0.0 10 3/mcL Normal 0.0-0.3 [facility] Comment on above: Performed By: #### M G, GFR, ANEU, ADIFF, CBC, CMP, A1C, LIPID #### [address] [address] Basophils/100 WBC (Bld) 0.6 % Normal 0.0-2.5 [facility] Comment on above: Performed By: #### M G, GFR, ANEU, ADIFF, CBC, CMP, A1C, LIPID #### [address] [address] Eosinophil, Absolute 0.1 10 3/mcL Normal 0.0-0.7 [facility] Comment on above: Performed By: #### M G, GFR, ANEU, ADIFF, CBC, CMP, A1C, LIPID #### [address] [address] Eosinophils/100 WBC (Bld) 1.1 % Normal 0.0-6.0 [facility] Comment on above: Performed By: #### M G, GFR, ANEU, ADIFF, CBC, CMP, A1C, LIPID #### [address] [address] Lymphocyte, Absolute 0.9 10 3/mcL Normal 0.9-4.3 [facility] Comment on above: Performed By: #### M G, GFR, ANEU, ADIFF, CBC, CMP, A1C, LIPID #### [address] [address] Lymphocytes/100 WBC (Bld) 17.7 % Low 20.0-40.0 [facility] Comment on above: Performed By: #### M G, GFR, ANEU, ADIFF, CBC, CMP, A1C, LIPID #### [address] [address] Monocyte, Absolute 0.6 10 3/mcL Normal 0.1-1.4 [facility] Comment on above: Performed By: #### M G, GFR, ANEU, ADIFF, CBC, CMP, A1C, LIPID #### [address] [address] Monocytes/100 WBC (Bld) 11.1 % Normal 2.0-13.0 [facility] Comment on above: Performed By: #### M G, GFR, ANEU, ADIFF, CBC, CMP, A1C, LIPID #### [address] [address] Neutrophils/100 WBC (Bld) 69.5 % Normal 50.0-75.0 [facility] Comment on above: Performed By: #### M G, GFR, ANEU, ADIFF, CBC, CMP, A1C, LIPID #### [address] [address] .GFRon 10-17-2024 Estimated Glomerular Filtration Rate 113 ml/min/1.73sqm Normal [facility] Comment on above: Result Comment: Stages [...] #### [facility] [address] [place], [place] [address] .NEUABSon 10-17-2024 Neutrophil, Absolute 3.7 10 3/mcL Normal 2.3-8.1 [facility] Comment on above: Performed By: #### M G, GFR, ANEU, ADIFF, CBC, CMP, A1C, LIPID #### [address] [address] BMPon 10-17-2024 BUN/Creatinine Ratio 7.7 ratio Low 10.0-22.0 [facility] Comment on above: Performed By: #### M G, GFR, ANEU, ADIFF, CBC, CMP, A1C, LIPID #### [place] [address] Calcium [Mass/Vol] 8.5 mg/dL Low 8.7-10.4 [facility] Comment on above: Performed By: #### M G, GFR, ANEU, ADIFF, CBC, CMP, A1C, LIPID #### [place] [address] Chloride [Moles/Vol] 101 mmol/L Normal 98-110 [facility] Comment on above: Performed By: #### M G, GFR, ANEU, ADIFF, CBC, CMP, A1C, LIPID #### [place] [address] CO2 [Moles/Vol] 31 mmol/L Normal 22-32 [facility] Comment on above: Performed By: #### M G, GFR, ANEU, ADIFF, CBC, CMP, A1C, LIPID #### [place] [address] Creatinine [Mass/Vol] 0.65 mg/dL Normal 0.60-1.[address] [facility] Comment on above: Result Comment: Test ing performed on ChaoWIFI analyzer using enzymatic creatinine methodology. Performed By: #### M G, GFR, ANEU, ADIFF, CBC, CMP, A1C, LIPID #### [place] [address] Electrolyte Balance 7.0 mEq/L Normal 4.0-15.0 [facility] Comment on above: Performed By: #### M G, GFR, ANEU, ADIFF, CBC, CMP, A1C, LIPID #### [place] [id number] Glucose [Mass/Vol] 120 mg/dL High 70-110 [facility] Comment on above: Performed By: #### M G, GFR, ANEU, ADIFF, CBC, CMP, A1C, LIPID #### [place] [id number] Potassium [Moles/Vol] 3.3 mmol/L Low 3.5-5.[address] [facility] Comment on above: Performed By: #### M G, GFR, ANEU, ADIFF, CBC, CMP, A1C, LIPID #### [place] [id number] Sodium [Moles/Vol] 139 mmol/L Normal 136-145 [facility] Comment on above: Performed By: #### M G, GFR, ANEU, ADIFF, CBC, CMP, A1C, LIPID #### [place] [address] Urea nitrogen [Mass/Vol] 5.0 mg/dL Low 8.0-22.0 [facility] Comment on above: Performed By: #### M G, GFR, ANEU, ADIFF, CBC, CMP, A1C, LIPID #### [address] [id number] CBCon 10-17-2024 Erythrocyte distribution width (RBC) [Ratio] 17.0 % High 11.5-15.5 [facility] Comment on above: Performed By: #### M G, GFR, ANEU, ADIFF, CBC, CMP, A1C, LIPID #### [place] [id number] Hematocrit (Bld) [Volume fraction] 40.3 % Normal 40.0-52.0 [facility] Comment on above: Performed By: #### M G, GFR, ANEU, ADIFF, CBC, CMP, A1C, LIPID #### [place] [id number] Hgb 13.2 G/dL Normal 13.0-17.5 [facility] Comment on above: Performed By: #### M G, GFR, ANEU, ADIFF, CBC, CMP, A1C, LIPID #### [place] [address] MCH (RBC) [Entitic mass] 28.6 pg Normal 27.0-33.0 [facility] Comment on above: Performed By: #### M G, GFR, ANEU, ADIFF, CBC, CMP, A1C, LIPID #### [place] [id number] MCHC 32.6 G/dL Normal 32.0-36.0 [facility] Comment on above: Performed By: #### M G, GFR, ANEU, ADIFF, CBC, CMP, A1C, LIPID #### [place] [address] MCV (RBC) [Entitic vol] 87.6 fL Normal 81.0-100.0 [facility] Comment on above: Performed By: #### M G, GFR, ANEU, ADIFF, CBC, CMP, A1C, LIPID #### [place] [address] Platelet 132 10 3/mcL Low 150-450 [facility] Comment on above: Performed By: #### M G, GFR, ANEU, ADIFF, CBC, CMP, A1C, LIPID #### [place] [address] Platelet mean volume (Bld) [Entitic vol] 7.8 fL Normal 6.4-10.5 [facility] Comment on above: Performed By: #### M G, GFR, ANEU, ADIFF, CBC, CMP, A1C, LIPID #### [place] [address] RBC 4.60 10 6/mcL Normal 4.50-6.00 [facility] Comment on above: Performed By: #### M G, GFR, ANEU, ADIFF, CBC, CMP, A1C, LIPID #### [place] [address] WBC 5.4 10 3/mcL Normal 4.5-10.8 [facility] Comment on above: Performed By: #### M G, GFR, ANEU, ADIFF, CBC, CMP, A1C, LIPID #### [place] [address] CT ANKLE W/O CONTRAST RIGHTo n 10-17-2024 [...] spanning external fixator, multiplanar 10/17. transfer from [facility]. for right ankle fracture with dislocation. [...] 10/17/2024 1:17:29 PM Ordering Provider: TARA DANICA [facility] MAIN LABORATORYOrdered By: SYSTEM SYSTEM on [...] HASSAN Comment on above: Interpretive Data: T [employer] (CHEST, 1991, 102:312S-25S) recommended therapeutic range for oral anticoagulant therapy is: LOW RISK: Prophylaxis of venous thrombosis INR: 2.0-3.0 Treatment of pulmonary embolism 2.0-3.0 Prevention of systemic embolism 2.0-3.0 HIGH RISK: Mechanical prosthetic valves 2.5-3.5 PROon 10-17-2024 INR Coag (PPP) [Relative time] 1.2 {INR} [facility] MAIN Comment on above: Result Comment: [employer] (CHEST, 1991, 102:312S-25S) recommended therapeutic range for oral anticoagulant therapy is: LOW RISK: Prophylaxis of venous thrombosis INR: 2.0-3.0 Treatment of pulmonary embolism 2.0-3.0 Prevention of systemic embolism 2.0-3.0 HIGH RISK: Mechanical prosthetic valves 2.5-3.5 Performed By: #### M G, GFR, ANEU, ADIFF, CBC, CMP, A1C, LIPID #### [address] [address] PT Coag (PPP) [Time] 13.7 s Normal 9.0-14.4 [facility] MAIN Comment on above: Result Comment: Effe ctive 12/11/07, Protime results may be affected by some antibiotics (i.e. Ciprofloxacin, Azithromycin, Bactrim) which may potentiate the action of oral anticoagulants, with further increases in Protime/INR. Performed By: #### M G, GFR, ANEU, ADIFF, CBC, CMP, A1C, LIPID #### [address] [address] XR FLUORO 1-2 HRS TECH TIMEo n [...] Intraoperative fluoroscopic images. Please refer to the waste treatment operator's report for further information. I have personally reviewed the images of this examination and agree with the resident's findings and interpretation. Interpreted by: Corey Wahl Preliminary Report By: Nadya Hudson Electronically signed By Corey Wahl Dictated Date: 10/17/2024 1:42:02 PM Prelim Date: 10/17/2024 2:15:08 PM Sign Date: 10/17/2024 2:15:08 PM Ordering Provider: NANI Kate [facility] .Auto Diffon 10-16-2024 Basophil, Absolute 0.1 10 3/mcL Normal 0.0-0.3 [facility] MAIN Comment on above: Performed By: #### C LILIANA DAMICO MDW, ADIFF #### [address] [address] Basophils/100 WBC (Bld) 0.8 % Normal 0.0-2.5 [facility] Comment on above: Performed By: #### C LILIANA DAMICO MDW, ADIFF #### [address] [address] Eosinophil, Absolute 0.1 10 3/mcL Normal 0.0-0.7 [facility] MAIN Comment on above: Performed By: #### C LILIANA DAMICO MDW, ADIFF #### [address] [address] Eosinophils/100 WBC (Bld) 1.2 % Normal 0.0-6.0 [facility] Comment on above: Performed By: #### C LILIANA DAMICO MDW, ADIFF #### [address] [address] Lymphocyte, Absolute 1.4 10 3/mcL Normal 0.9-4.3 [facility] MAIN Comment on above: Performed By: #### C LILIANA DAMICO MDW, ADIFF #### [address] [address] Lymphocytes/100 WBC (Bld) 19.8 % Low 20.0-40.0 [facility] Comment on above: Performed By: #### C LILIANA DAMICO MDW, ADIFF #### [address] [address] Monocyte, Absolute 0.7 10 3/mcL Normal 0.1-1.4 [facility] Comment on above: Performed By: #### C LILIANA DAMICO MDW, ADIFF #### [address] [address] Monocytes/100 WBC (Bld) 10.7 % Normal 2.0-13.0 [facility] Comment on above: Performed By: #### C LILIANA DAMICO MDW, ADIFF #### [address] [address] Neutrophils/100 WBC (Bld) 67.5 % Normal 50.0-75.0 [facility] Comment on above: Performed By: #### C LILIANA DAMICO MDW, ADIFF #### [address] [address] Basophil, Absolute 0.0 10 3/mcL Normal 0.0-0.3 [facility] Comment on above: Performed By: #### M G, GFR, ANEU, ADIFF, CBC, CMP, A1C, LIPID #### [address] [address] Basophils/100 WBC (Bld) 0.7 % Normal 0.0-2.5 [facility] Comment on above: Performed By: #### M G, GFR, ANEU, ADIFF, CBC, CMP, A1C, LIPID #### [address] [address] Eosinophil, Absolute 0.1 10 3/mcL Normal 0.0-0.7 [facility] MAIN Comment on above: Performed By: #### M G, GFR, ANEU, ADIFF, CBC, CMP, A1C, LIPID #### [address] [address] Eosinophils/100 WBC (Bld) 0.8 % Normal 0.0-6.0 [facility] Comment on above: Performed By: #### M G, GFR, ANEU, ADIFF, CBC, CMP, A1C, LIPID #### [address] [address] Lymphocyte, Absolute 1.1 10 3/mcL Normal 0.9-4.3 [facility] MAIN Comment on above: Performed By: #### M G, GFR, ANEU, ADIFF, CBC, CMP, A1C, LIPID #### [address] [address] Lymphocytes/100 WBC (Bld) 17.2 % Low 20.0-40.0 [facility] Comment on above: Performed By: #### M G, GFR, ANEU, ADIFF, CBC, CMP, A1C, LIPID #### [address] [address] Monocyte, Absolute 0.6 10 3/mcL Normal 0.1-1.4 [facility] Comment on above: Performed By: #### M G, GFR, ANEU, ADIFF, CBC, CMP, A1C, LIPID #### [address] [address] Monocytes/100 WBC (Bld) 8.7 % Normal 2.0-13.0 [facility] Comment on above: Performed By: #### M G, GFR, ANEU, ADIFF, CBC, CMP, A1C, LIPID #### [address] [address] Neutrophils/100 WBC (Bld) 72.6 % Normal 50.0-75.0 [facility] Comment on above: Performed By: #### M G, GFR, ANEU, ADIFF, CBC, CMP, A1C, LIPID #### [address] [address] .GFRon 10-16-2024 Estimated Glomerular Filtration Rate 110 ml/min/1.73sqm Normal [facility] Comment on above: Result Comment: Stages [...] ANEU, ADIFF, CBC, CMP, A1C, LIPID #### [place] [address] Estimated Glomerular Filtration Rate 111 ml/min/1.73sqm [facility] MAIN Comment on above: Result Comment: [...] ANEU, ADIFF, CBC, CMP, A1C, LIPID #### [address] [address] .MDWon 10-16-2024 Monocyte Distribution Width 19.45 Normal 0.00-20.00 [facility] Comment on above: Result Comment: For ED adult patients suspected of sepsis, MDW<=20.0 does not rule out sepsis or risk of sepsis Performed By: #### M G, GFR, ANEU, ADIFF, CBC, CMP, A1C, LIPID #### [address] [address] Monocyte Distribution Width 17.52 Normal 0.00-20.00 [facility] Comment on above: Result Comment: For ED adult patients suspected of sepsis, MDW<=20.0 does not rule out sepsis or risk of sepsis Performed By: #### M G, GFR, ANEU, ADIFF, CBC, CMP, A1C, LIPID #### [address] [address] .NEUABSon 10-16-2024 Neutrophil, Absolute 4.7 10 3/mcL Normal 2.3-8.1 [facility] MAIN Comment on above: Performed By: #### M G, GFR, ANEU, ADIFF, CBC, CMP, A1C, LIPID #### [place] [address] Neutrophil, Absolute 4.7 10 3/mcL Normal 2.3-8.1 [facility] MAIN Comment on above: Performed By: #### M G, GFR, ANEU, ADIFF, CBC, CMP, A1C, LIPID #### [place] [address] ABO/Rh (Gel)on 10-16-2024 ABO/Rh Interp Positive Invalid Interpretation Code [facility] Comment on above: Performed By: #### M G, GFR, ANEU, ADIFF, CBC, CMP, A1C, LIPID #### [place] [id number] ABS (Gel)on 10-16-2024 ABSC Interp (Gel) Negative Normal [facility] Comment on above: Performed By: #### M G, GFR, ANEU, ADIFF, CBC, CMP, A1C, LIPID #### [place] [id number] Stefanie 10-16-2024 Ethanol Level <10.0 Normal [facility] Comment on above: Performed By: #### M G, GFR, ANEU, ADIFF, CBC, CMP, A1C, LIPID #### [place] [address] ANKLE COMPLETE RTon 10-17-19 ANKLE COMPLETE RT [place] [address] Patient: SOCORRO KELLEY Phone#: : [phone] Age: 54 Gender: M Pt. Type: ER Account: [id number] Location: [facility] Ordering: JAKE MAXWELL Exam Date: 10/16/2024/13:23 Family Phys: Charge Code: [id number] Physician: [place] Order #: [id number] Dose#: PROCEDURE: X-RAY ANKLE COMPLETE RT MIN [...] Bagley MD on 10/16/2024 at 14:15 [facility]/Creatinine Ratio 15.9 ratio Normal 10.0-22.0 [facility] Comment on above: Performed By: #### M G, GFR, ANEU, ADIFF, CBC, CMP, A1C, LIPID #### [address] [address] Calcium [Mass/Vol] 9.4 mg/dL Normal 8.7-10.4 [facility] MAIN Comment on above: Performed By: #### M G, GFR, ANEU, ADIFF, CBC, CMP, A1C, LIPID #### [address] [address] Chloride [Moles/Vol] 103 mmol/L Normal 98-110 [facility] MA[facility] Comment on above: Performed By: #### M G, GFR, ANEU, ADIFF, CBC, CMP, A1C, LIPID #### [address] [address] CO2 [Moles/Vol] 32 mmol/L Normal 22-32 [facility] Comment on above: Performed By: #### M G, GFR, ANEU, ADIFF, CBC, CMP, A1C, LIPID #### [address] [address] Creatinine [Mass/Vol] 0.69 mg/dL Normal 0.60-1.[address] [facility] MAIN Comment on above: Result Comment: Test ing performed on ChaoWIFI analyzer using enzymatic creatinine methodology. Performed By: #### M G, GFR, ANEU, ADIFF, CBC, CMP, A1C, LIPID #### [address] [address] Electrolyte Balance 5.0 mEq/L Normal 4.0-15.0 [facility] MAIN Comment on above: Performed By: #### M G, GFR, ANEU, ADIFF, CBC, CMP, A1C, LIPID #### [address] [address] Glucose [Mass/Vol] 94 mg/dL Normal 70-110 [facility] MAIN Comment on above: Performed By: #### M G, GFR, ANEU, ADIFF, CBC, CMP, A1C, LIPID #### [address] [address] Potassium [Moles/Vol] 3.6 mmol/L Normal 3.5-5.[address] [facility] Comment on above: Performed By: #### M G, GFR, ANEU, ADIFF, CBC, CMP, A1C, LIPID #### [address] [address] Sodium [Moles/Vol] 140 mmol/L Normal 136-145 [facility] MAIN Comment on above: Performed By: #### M G, GFR, ANEU, ADIFF, CBC, CMP, A1C, LIPID #### [address] [address] Urea nitrogen [Mass/Vol] 11.0 mg/dL Normal 8.0-22.0 [facility] Comment on above: Performed By: #### M GCORRIE, LILIANA, ESSIE, CBC, CMP, A1C, LIPID #### [place] [id number] CBCon 10-16-2024 Erythrocyte distribution width (RBC) [Ratio] 16.5 % High 11.5-15.5 [facility] Comment on above: Performed By: #### C LILIANA DAMICO MDW, ADIFF #### [place] [address] Hematocrit (Bld) [Volume fraction] 45.2 % Normal 40.0-52.0 [facility] Comment on above: Performed By: #### C LILIANA DAMICO MDW, ADIFF #### [place] [address] Hgb 14.8 G/dL Normal 13.0-17.5 [facility] Comment on above: Performed By: #### C LILIANA DAMICO MDW, ADIFF #### [place] [address] MCH (RBC) [Entitic mass] 28.8 pg Normal 27.0-33.0 [facility] Comment on above: Performed By: #### C LILIANA DAMICO MDW, ADIFF #### [place] [address] MCHC 32.8 G/dL Normal 32.0-36.0 [facility] Comment on above: Performed By: #### C LILIANA DAMICO MDW, ADIFF #### [place] [id number] MCV (RBC) [Entitic vol] 87.8 fL Normal 81.0-100.0 [facility] Comment on above: Performed By: #### C LILIANA DAMICO MDW, ADIFF #### [place] [id number] Platelet 172 10 3/mcL Normal 150-450 [facility] Comment on above: Performed By: #### C LILIANA DAMICO MDW, ADIFF #### [place] [address] Platelet mean volume (Bld) [Entitic vol] 7.9 fL Normal 6.4-10.5 [facility] Comment on above: Performed By: #### C LILIANA DAMICO MDW, ADIFF #### [address] [address] RBC 5.14 10 6/mcL Normal 4.50-6.00 [facility] Comment on above: Performed By: #### C LILIANA DAMICO MDW, ADIFF #### [address] [address] WBC 6.9 10 3/mcL Normal 4.5-10.8 [facility] Comment on above: Performed By: #### C LILIANA DAMICO MDW, ADIFF #### [place] [id number] Erythrocyte distribution width (RBC) [Ratio] 17.1 % High 11.5-15.5 [facility] Comment on above: Performed By: #### M G, GFR, ANEU, ADIFF, CBC, CMP, A1C, LIPID #### [place] [address] Hematocrit (Bld) [Volume fraction] 43.2 % Normal 40.0-52.0 [facility] Comment on above: Performed By: #### M G, GFR, ANEU, ADIFF, CBC, CMP, A1C, LIPID #### [address] [address] Hgb 14.3 G/dL Normal 13.0-17.5 [facility] Comment on above: Performed By: #### M G, GFR, ANEU, ADIFF, CBC, CMP, A1C, LIPID #### [address] [address] MCH (RBC) [Entitic mass] 28.9 pg Normal 27.0-33.0 [facility] Comment on above: Performed By: #### M G, GFR, ANEU, ADIFF, CBC, CMP, A1C, LIPID #### [place] [id number] MCHC 33.0 G/dL Normal 32.0-36.0 [facility] Comment on above: Performed By: #### M G, GFR, ANEU, ADIFF, CBC, CMP, A1C, LIPID #### [place] [address] MCV (RBC) [Entitic vol] 87.4 fL Normal 81.0-100.0 [facility] Comment on above: Performed By: #### M G, GFR, ANEU, ADIFF, CBC, CMP, A1C, LIPID #### [place] [address] Platelet 152 10 3/mcL Normal 150-450 [facility] Comment on above: Performed By: #### M G, GFR, ANEU, ADIFF, CBC, CMP, A1C, LIPID #### [place] [address] Platelet mean volume (Bld) [Entitic vol] 7.7 fL Normal 6.4-10.5 [facility] Comment on above: Performed By: #### M G, GFR, ANEU, ADIFF, CBC, CMP, A1C, LIPID #### [place] [address] RBC 4.94 10 6/mcL Normal 4.50-6.00 [facility] Comment on above: Performed By: #### M G, GFR, ANEU, ADIFF, CBC, CMP, A1C, LIPID #### [place] [address] WBC 6.5 10 3/mcL Normal 4.5-10.8 [facility] Comment on above: Performed By: #### M G, GFR, ANEU, ADIFF, CBC, CMP, A1C, LIPID #### [place] [address] CBC + DIFFon 10-16-2024 Baso # 0.01 x10EE3/UL Normal 0.00 - 0.10 [facility] Comment on above: Performed By: #### 2 35045 #### [facility],[address] [place] [address] Basophils/100 WBC (Bld) 0.2 % Normal 0.0 - 2.0 [facility] Comment on above: Performed By: #### 2 46158 #### [facility],[address] [place] [address] CBC + DIFF Normal [facility] Comment on above: Result Comment: CBC- COMPLETE BLOOD COUNT Performed By: #### 2 99224 #### [facility],[address] [place] [address] EO # 0.04 x10EE3/UL Normal 0.00 - 0.50 [facility] Comment on above: Performed By: #### 2 59714 #### [facility],[address] [place] [address] Eosinophils/100 WBC (Bld) 0.7 % Normal 0.0 - 7.0 [facility] Comment on above: Performed By: #### 2 27497 #### [facility],[address] [place] [address] Erythrocyte distribution width (RBC) [Ratio] 15.2 % Normal 12.0 - 15.6 [facility] Comment on above: Performed By: #### 2 98908 #### [facility],[address] [place] [address] Hematocrit (Bld) [Volume fraction] 44.1 % Normal 40.0 - 52.0 [facility] Comment on above: Performed By: #### 2 36394 #### [facility],[address] [place] [address] Hemoglobin (Bld) [Mass/Vol] 15.4 g/dL Normal 13.0 - 17.5 [facility] Comment on above: Performed By: #### 2 20902 #### [facility],[address] [place] [address] Lymph # 0.96 x10EE3/UL Normal 0.80 - 2.80 [facility] Comment on above: Performed By: #### 2 60496 #### [facility],[address] [place] [address] Lymphocytes/100 WBC (Bld) 17.1 % Low 20.0 - 45.0 [facility] Comment on above: Performed By: #### 2 54520 #### [facility],[address] [place] [address] MANUAL DIFF N/A Normal [facility] Comment on above: Performed By: #### 2 51475 #### [facility],[address] [place] [address] MCH (RBC) [Entitic mass] 31 pg Normal 27 - 33 [facility] Comment on above: Performed By: #### 2 98159 #### [facility],[address] [place] [address] MCHC 35 X10 3 Normal 32 - 36 [facility] Comment on above: Performed By: #### 2 30072 #### [facility],[address] [place] [address] MCV (RBC) [Entitic vol] 88 fL Normal 81 - 98 [facility] Comment on above: Performed By: #### 2 11411 #### [facility],[address] [place] [address] Mcpherson # 0.47 x10EE3/UL Normal 0.20 - 1.00 [facility] Comment on above: Performed By: #### 2 36153 #### [facility],[address] [place] [address] MONOS % 8.4 % Normal 0.0 - 10.0 [facility] Comment on above: Performed By: #### 2 24427 #### [facility],[address] [place], [place] [id number] Morphology Rocky (Bld) [Interp] N/A Normal [facility] Comment on above: Performed By: #### 2 83693 #### [facility],[address] [place] [address] Neut # 4.12 x10EE3/UL Normal 1.50 - 7.10 [facility] Comment on above: Performed By: #### 2 52757 #### [facility],[address] [place] [address] Neutrophils/100 WBC (Bld) 73.6 % Normal 46.0 - 76.0 [facility] Comment on above: Performed By: #### 2 77341 #### [facility],[address] [place] [address] PLATELET 148 x10EE3/UL Low 150 - 450 [facility] Comment on above: Performed By: #### 2 06859 #### [facility],[address] [place] [address] Platelet mean volume (Bld) [Entitic vol] 8.1 fL Normal 6.4 - 10.5 [facility] Comment on above: Result Comment: AUTO MATED DIFFERENTIAL Performed By: #### 2 89413 #### [facility],[address] [place] [address] RBC 5.02 x 10EE6/UL Normal 4.50 - 6.00 [facility] Comment on above: Performed By: #### 2 16719 #### [facility],[address] [place] [address] WBC 5.6 x 10EE3/UL Normal 4.5 - 10.8 [facility] Comment on above: Performed By: #### 2 02053 #### [facility],[address] [place] [address] CMPon 10-16-2024 Albumin Level 3.6 G/dL Normal 3.2-4.8 [facility] Comment on above: Performed By: #### M G, GFR, ANEU, ADIFF, CBC, CMP, A1C, LIPID #### [address] [address] Albumin/Globulin [Mass ratio] 1.0 {ratio} Normal 0.9-1.6 [facility] Comment on above: Performed By: #### M G, GFR, ANEU, ADIFF, CBC, CMP, A1C, LIPID #### [address] [address] ALP [Catalytic activity/Vol] 70 U/L Normal 38-126 [facility] Comment on above: Performed By: #### M G, GFR, ANEU, ADIFF, CBC, CMP, A1C, LIPID #### [place] [id number] ALT [Catalytic activity/Vol] 12 U/L Normal 12-55 [facility] Comment on above: Performed By: #### M G, GFR, ANEU, ADIFF, CBC, CMP, A1C, LIPID #### [place] [id number] AST [Catalytic activity/Vol] 17 U/L Normal 8-34 [facility] Comment on above: Performed By: #### M G, GFR, ANEU, ADIFF, CBC, CMP, A1C, LIPID #### [place] [id number] Bili Total 0.60 mg/dL Normal 0.20-1.20 [facility] Comment on above: Result Comment: Use of this assay is not recommended for patients undergoing treatment with eltrombopag due to the potential for falsely elevated results. Performed By: #### M G, GFR, ANEU, ADIFF, CBC, CMP, A1C, LIPID #### [place] [address] BUN/Creatinine Ratio 14.1 ratio Normal 10.0-22.0 [facility] Comment on above: Performed By: #### M G, GFR, ANEU, ADIFF, CBC, CMP, A1C, LIPID #### [place] [id number] Calcium [Mass/Vol] 9.0 mg/dL Normal 8.7-10.4 [facility] Comment on above: Performed By: #### M G, GFR, ANEU, ADIFF, CBC, CMP, A1C, LIPID #### [place] [id number] Chloride [Moles/Vol] 102 mmol/L Normal 98-110 [facility] Comment on above: Performed By: #### M G, GFR, ANEU, ADIFF, CBC, CMP, A1C, LIPID #### [address] [address] CO2 [Moles/Vol] 33 mmol/L High 22-32 [facility] Comment on above: Performed By: #### M G, GFR, ANEU, ADIFF, CBC, CMP, A1C, LIPID #### [address] [address] Creatinine [Mass/Vol] 0.71 mg/dL Normal 0.60-1.[address] [facility] Comment on above: Result Comment: Test ing performed on ChaoWIFI analyzer using enzymatic creatinine methodology. Performed By: #### M G, GFR, ANEU, ADIFF, CBC, CMP, A1C, LIPID #### [address] [address] Electrolyte Balance 4.0 mEq/L Normal 4.0-15.0 [facility] Comment on above: Performed By: #### M G, GFR, ANEU, ADIFF, CBC, CMP, A1C, LIPID #### [address] [address] Globulin 3.5 G/dL Normal 2.5-4.2 [facility] Comment on above: Performed By: #### M G, GFR, ANEU, ADIFF, CBC, CMP, A1C, LIPID #### [address] [address] Glucose [Mass/Vol] 109 mg/dL Normal 70-110 [facility] Comment on above: Performed By: #### M G, GFR, ANEU, ADIFF, CBC, CMP, A1C, LIPID #### [address] [id number] Potassium [Moles/Vol] 3.7 mmol/L Normal 3.5-5.[address] [facility] MAIN Comment on above: Performed By: #### M G, GFR, ANEU, ADIFF, CBC, CMP, A1C, LIPID #### [address] [id number] Sodium [Moles/Vol] 139 mmol/L Normal 136-145 [facility] Comment on above: Performed By: #### M G, GFR, ANEU, ADIFF, CBC, CMP, A1C, LIPID #### [facility] [address] [place] [id number] Total Protein 7.1 G/dL Normal 5.7-8.2 [facility] Comment on above: Performed By: #### M G, GFR, ANEU, ADIFF, CBC, CMP, A1C, LIPID #### [facility] [address] [place] [id number] Urea nitrogen [Mass/Vol] 10.0 mg/dL Normal 8.0-22.0 [facility] Comment on above: Performed By: #### M G, GFR, ANEU, ADIFF, CBC, CMP, A1C, LIPID #### [facility] [address] [place] [address] 24254 CMP with eGFRon 10-16-2024 AGE 54 years Normal [facility] Comment on above: Performed By: #### 2 29443 ####[facility],[address] [place] [address] 35925 Albumin [Mass/Vol] 3.4 g/dL Normal 3.4 - 5.0 [facility] Comment on above: Performed By: #### 2 70631 ####[facility],[address] [place] [address] 01142 Albumin/Globulin [Mass ratio] 0.9 {ratio} Normal 0.9 - 1.6 [facility] Comment on above: Performed By: #### 2 17700 ####[facility],[address] [place] [address] 05119 ALK PHOS 76 U/L Normal 46 - 116 [facility] Comment on above: Performed By: #### 2 71891 ####[facility],[address] [place] [address] 96476 ALT [Catalytic activity/Vol] 17 U/L Normal 16 - 63 [facility] Comment on above: Performed By: #### 2 41008 ####[facility],[address] [place] [address] 93777 Anion gap [Moles/Vol] 11 mmol/L Normal 10 - 20 [facility] Comment on above: Performed By: #### 2 99906 ####[facility],[address] [place] [address] 14263 AST [Catalytic activity/Vol] 17 U/L Normal 15 - 37 [facility] Comment on above: Performed By: #### 2 84196 ####[facility],[address] [place] [address] 89177 B/C RATIO 13 ratio Normal 0 - 30 [facility] Comment on above: Performed By: #### 2 61630 ####[facility],[address] [place] [address] 85799 Bilirubin [Mass/Vol] 0.5 mg/dL Normal 0.2 - 1.0 [facility] Comment on above: Performed By: #### 2 49819 ####[facility],[address] [place] [address] 85411 Calcium [Mass/Vol] 8.9 mg/dL Normal 8.5 - 10.1 [facility] Comment on above: Performed By: #### 2 53271 ####[facility],[address] [place] [address] 82641 Chloride [Moles/Vol] 101 mmol/L Normal 98 - 107 [facility] Comment on above: Performed By: #### 2 69123 ####[facility],[address] [place] [address] 58633 CMP with eGFR Normal [facility] Comment on above: Result Comment: COMP REHENSIVE METABOLIC PANEL Performed By: #### 2 88555 ####[facility],[address] [place] [address] 25212 CO2 [Moles/Vol] 30.7 mmol/L Normal 21.0 - 32.0 [facility] Comment on above: Performed By: #### 2 58996 ####[facility],[address] [place] [address] 06385 Creatinine [Mass/Vol] 0.96 mg/dL Normal 0.70 - 1.30 [facility] Comment on above: Performed By: #### 2 92319 ####[facility],[address] [place] [address] 91908 GFR/1.73 sq M.predicted among non-blacks MDRD (S/P/Bld) [Vol rate/Area] mL/min/{1.73_m2} Normal 60 - 999 [facility] Comment on above: Performed By: #### 2 00159 ####[facility],[address] [place] [address] 49317 Result Comment: ACCO RDING TO THE NATIONAL KIDNEY DISEASE EDUCATION PROGRAM(NKDE), A NORMAL eGFR IS A VALUE GREATER THAN OR EQUAL TO 60 ML/MIN/1.73 SQ METERS. CHRONIC KIDNEY DISEASE: <60mL/MIN/1.73 SQ METERS KIDNEY FAILURE: <15mL/MIN/1.73 SQ METERS THIS TEST SHOULD ONLY BE USED FOR PATIENTS 18 YEARS OF AGE AND OLDER. Globulin (S) [Mass/Vol] 3.7 g/dL Normal 1.5 - 3.8 [facility] Comment on above: Performed By: #### 2 81531 ####[facility],[address] [place] [address] 48460 Glucose [Mass/Vol] 94 mg/dL Normal 74 - 106 [facility] Comment on above: Performed By: #### 2 97757 ####[facility],[address] [place] [address] 29638 Potassium [Moles/Vol] 3.6 mmol/L Normal 3.5 - 5.1 [facility] Comment on above: Performed By: #### 2 84833 ####[facility],[address] [place] [address] 34630 Protein [Mass/Vol] 7.1 g/dL Normal 6.4 - 8.2 [facility] Comment on above: Performed By: #### 2 51572 ####[facility],[address] [place] [address] 47360 Sodium [Moles/Vol] 139 mmol/L Normal 136 - 145 [facility] Comment on above: Performed By: #### 2 90681 ####[facility],[address] [place] [address] 57266 Urea nitrogen [Mass/Vol] 12 mg/dL Normal 7 - 18 [facility] Comment on above: Performed By: #### 2 66400 ####[facility],[address] [place] [address] 99734 ED MED ADMINISTRATION DETAIL on 10-16-2024 ED MED 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 1 of 1 Normal [facility] ED NURSES CLINICAL NOTEon ED NURSES CLINICAL NOTE Nurse Narrative Nurse Clinical Narrative [address] [address] [id number] 10/16/2024 12:34:00 Patient: SOCORRO KELLEY Sex: Male : 1970 Age: 54y Disposition: Transfer to [facility] Disposition Decision Time: 14:27 10/16/2024 Departure Time: [...] had swelling, redness and trouble walking. 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 SEPSIS SCREEN: NEGATIVE. SIRS criteria negative. [...] release 24 hr -- 12:51 10/16/24 EKTAT Silvina Maguire R.N. spironolactone 25 mg tablet -- 12:51 10/16/24 EKTAT Silvina Maguire R.N. trazodone 100 mg tablet -- 12:51 10/16/24 T Silvina Maguire R.N. tizanidine 2 mg tablet -- 12:51 10/16/24 T Silvina Maguire R.N. hydroxyzine pamoate 25 mg capsule -- 12:51 10/16/24 T Silvina Mgauire R.N. furosemide 20 mg tablet -- 12:51 [...] 12:51 10/16/24 EKTAT Silvina Maguire R.N. Allergies: Tgtltjt-QNZ-FqJ Reductase Inhibitors -- 12:40 10/16/24 EKTAT Silvina [...] 10/16/24. E (more content not included)... Normal [facility] ED ORDER SHEET (CPOE ONLY)on 10-16-2024 ED ORDER SHEET (CPOE ONLY) Order Sheet Order Sheet [place] [address] [facility] [address] [id number] 10/16/2024 Patient: SOCORRO KELLEY Sex: Male : 1970 Age: 54y MEASUREMENTS: Wt: 140.2 kg, Ht/Wilson: 69.0 in, BMI: 45.63 ALLERGIES: Dshuirz-WBW-MeA Reductase Inhibitors MEDICATION/IV/DRIP/FLU ID ORDERS Order Description [...] (10/16/2024 15:18 EDT)] 3 of 3 Normal [facility] ED PHYSICIAN CLINICAL REPORT on 10-16-2024 ED PHYSICIAN CLINICAL REPORT Narrative Physician Clinical Narrative [address] [address] [id number] 10/16/2024 12:34:00 Patient: SOCORRO KELLEY Sex: Male : 1970 Age: 54y Disposition: Transfer to [facility] Disposition Decision Time: 14:27 10/16/2024 Measurements Wt: [...] pen injector Xarelto 20 mg tablet Allergies: Moowynu-NVS-BfJ Reductase Inhibitors SOCIAL HISTORY Does not use [...] 148 x10/UL (more content not included)... Normal [facility] ED SUPER BILLon 10-16-2024 ED SUPER BILL [place] [address] [place] [address] [id number] 10/16/2024 Patient: SOCORRO KELLEY Sex: Male : 1970 Age: 54y Facility Professional Category Item Description Code Code Quantity Fee Total Nurse/E/M EMERGENCY 184439 1 $0.00 $0.00 DEPT VISIT HIGH SEVERITYFUNCJ (12663-70) Nurse/IV/IM/Infusions IVP initial (14183) [id number] 1 $0.00 $0.00 Grand $0.00 Total Providers Jake Maxwell M.D. Jake Maxwell M.D. Chief Complaint Injury to right foot and right ankle. Principal Diagnosis Closed displaced, severely angulated right bimalleolar fracture. 1 of 2 [facility] ICD-10 Codes S82.841A: Displaced bimalleolar fracture of right lower leg, initial encounter for closed fracture 2 of 2 Normal [facility] ED VISIT SUMMARYon ED VISIT SUMMARY Visit Overview Visit Overview [address] [address] [id number] 10/16/2024 Patient: SOCORRO KELLEY Sex: Male : 1970 Age: 54y 10/16/2024 07:42 PM EDT ED Arrival:12:34 10/16/2024 EDT Status: Recent Travel:no Language:eng Adv Directive:No Isolation Status: Ethnicity:N Fall Risk:risk Infectious Disease Exposure:no Measurements:5'9 / 175.3 Self-Harm Status:risk Sepsis Screen:negative cm 309.0 lb / 140.2 kg Chief Complaint:RIGHT LOWER EXTREMITY PAIN, RIGHT LOWER EXTREMITY REDNESS, and RIGHT LOWER EXTREMITY SWELLING ALLERGIES Ujblcvw-KYX-CwW Reductase Inhibitors HOME MEDICATIONS albuterol sulfate 2.5 [...] RIGHT BIMALLEOLAR FRACTURE 4 of 4 Normal [facility] ED VITALS FLOW SHEETon 10-16 ED VITALS FLOW SHEET Vitals Vital Sign Flow Sheet [address] [place] [address] [id number] 10/16/2024 Patient: SOCORRO KELLEY Sex: Male : [...] 98.9 F 10 2 of 2 Normal [facility] FOOT COMPLETE RTon FOOT COMPLETE RT [place] [address] Patient: SOCORRO KELLEY Phone#: : 1970 Age: 54 Gender: M Pt. Type: ER Account: [id number] Location: [facility] Ordering: JAKE MAXWELL Exam Date: 10/16/2024/13:00 Family Phys: Charge Code: 760517 Physician: [place] Order #: [id number] Dose#: PROCEDURE: X-RAY FOOT RT COMPLETE MIN [...] Bagley MD on 10/16/2024 at 14:23 Normal [facility] LABORATORYOrdered By: SYSTEM SYSTEM on 10-16-2024 [...] [Moles/Vol] 1.1 mmol/L Normal 0.4 - 2.0 [facility] Comment on above: Performed By: #### 2 17328 #### [facility],[address] [place] [address] NT-proBNPon 10-16-2024 Natriuretic peptide B (Bld) [Mass/Vol] 291 pg/mL High 0 - 125 [facility] Comment on above: Performed By: #### 2 94420 #### [facility],[address] [place], [place] [id number] PROTHROMBIN TIME AND INRon 0 10-16-2024 INR Coag (PPP) [Relative time] 1.4 {INR} High 0.8 - 1.2 [facility] Comment on above: Result Comment: T [...] MECHANICAL HEART VALVES Performed By: #### 2 88326 ####[facility],[address] [place] [address] PROTHROMBIN TIME AND INR Normal [facility] Comment on above: Result Comment: PROT HROMBIN TIME AND INR Performed By: #### 2 55819 ####[facility],[address] [place] [address] PT-COUMADIN 15.9 sec High 9.3 - 14.1 [facility] Comment on above: Performed By: #### 2 22543 ####[facility],[address] [place] [address] TIBIA-FIBULA RTon 10-16-2024 TIBIA-FIBULA [place] [address] Patient: SOCORRO KELLEY Phone#: : 1970 Age: 54 Gender: M Pt. Type: ER Account: [id number] Location: [facility] Ordering: JAKE MAXWELL Exam Date: 10/16/2024/13:23 Family Phys: Charge Code: 637923 Physician: Lincoln Order #: [id number] Dose#: PROCEDURE: X-RAY TIB FIB RT 2 [...] Corrine Bagley MD on 10/16/2024 at 14:12 [facility] XR ANKLE MINIMUM 3 VIEWS LEF Ton [...] 10/16/2024 10:39:42 PM Ordering Provider: RIC ARELLANO [facility] XR ANKLE MINIMUM 3 VIEWS [...] 10/16/2024 9:20:54 PM Ordering Provider: RIC ARELLANO [facility] MAIN XR ANKLE MINIMUM 3 VIEWS [...] 10/16/2024 7:53:07 PM Ordering Provider: EM GARCIA [facility] MA[facility] XR ANKLE MINIMUM 3 VIEWS [...] 10/16/2024 6:28:12 PM Ordering Provider: EM Kate [facility] .Auto Diffon 10-04-2024 Basophil, Absolute 0.0 10 3/mcL Normal 0.0-0.3 [facility] Comment on above: Performed By: #### M G, GFR, ANEU, ADIFF, CBC, CMP, A1C, LIPID #### [address] [address] Basophils/100 WBC (Bld) 0.9 % Normal 0.0-2.5 [facility] Comment on above: Performed By: #### M G, GFR, ANEU, ADIFF, CBC, CMP, A1C, LIPID #### [address] [address] Eosinophil, Absolute 0.1 10 3/mcL Normal 0.0-0.7 [facility] Comment on above: Performed By: #### M G, GFR, ANEU, ADIFF, CBC, CMP, A1C, LIPID #### [address] [address] Eosinophils/100 WBC (Bld) 1.9 % Normal 0.0-6.0 [facility] Comment on above: Performed By: #### M G, GFR, ANEU, ADIFF, CBC, CMP, A1C, LIPID #### [address] [address] Lymphocyte, Absolute 1.0 10 3/mcL Normal 0.9-4.3 [facility] Comment on above: Performed By: #### M G, GFR, ANEU, ADIFF, CBC, CMP, A1C, LIPID #### [address] [address] Lymphocytes/100 WBC (Bld) 24.9 % Normal 20.0-40.0 [facility] Comment on above: Performed By: #### M G, GFR, ANEU, ADIFF, CBC, CMP, A1C, LIPID #### [address] [address] Monocyte, Absolute 0.3 10 3/mcL Normal 0.1-1.4 [facility] Comment on above: Performed By: #### M G, GFR, ANEU, ADIFF, CBC, CMP, A1C, LIPID #### [address] [address] Monocytes/100 WBC (Bld) 7.5 % Normal 2.0-13.0 [facility] Comment on above: Performed By: #### M G, GFR, ANEU, ADIFF, CBC, CMP, A1C, LIPID #### [address] [address] Neutrophils/100 WBC (Bld) 64.8 % Normal 50.0-75.0 [facility] Comment on above: Performed By: #### M G, GFR, ANEU, ADIFF, CBC, CMP, A1C, LIPID #### [address] [address] .GFRon 10-04-2024 Estimated Glomerular Filtration Rate 107 ml/min/1.73sqm Normal [facility] Comment on above: Result Comment: Stages [...] ANEU, ADIFF, CBC, CMP, A1C, LIPID #### [address] [address] .NEUABSon 10-04-2024 Neutrophil, Absolute 2.5 10 3/mcL Normal 2.3-8.1 [facility] Comment on above: Performed By: #### M G, GFR, ANEU, ADIFF, CBC, CMP, A1C, LIPID #### [address] [address] BMPon 10-04-2024 BUN/Creatinine Ratio 6.5 ratio Low 10.0-22.0 [facility] Comment on above: Performed By: #### M G, GFR, ANEU, ADIFF, CBC, CMP, A1C, LIPID #### [address] [address] Calcium [Mass/Vol] 8.5 mg/dL Low 8.7-10.4 [facility] Comment on above: Performed By: #### M G, GFR, ANEU, ADIFF, CBC, CMP, A1C, LIPID #### [address] [address] Chloride [Moles/Vol] 102 mmol/L Normal 98-110 [facility] Comment on above: Performed By: #### M G, GFR, ANEU, ADIFF, CBC, CMP, A1C, LIPID #### [address] [address] CO2 [Moles/Vol] 31 mmol/L Normal 22-32 [facility] Comment on above: Performed By: #### M G, GFR, ANEU, ADIFF, CBC, CMP, A1C, LIPID #### [address] [address] Creatinine [Mass/Vol] 0.77 mg/dL Normal 0.60-1.[address] [facility] Comment on above: Result Comment: Test ing performed on ChaoWIFI analyzer using enzymatic creatinine methodology. Performed By: #### M G, GFR, ANEU, ADIFF, CBC, CMP, A1C, LIPID #### [address] [address] Electrolyte Balance 6.0 mEq/L Normal 4.0-15.0 [facility] Comment on above: Performed By: #### M G, GFR, ANEU, ADIFF, CBC, CMP, A1C, LIPID #### [address] [address] Glucose [Mass/Vol] 108 mg/dL Normal 70-110 [facility] Comment on above: Performed By: #### M G, GFR, ANEU, ADIFF, CBC, CMP, A1C, LIPID #### [place] [id number] Potassium [Moles/Vol] 3.5 mmol/L Normal 3.5-5.[address] [facility] Comment on above: Performed By: #### M G, GFR, ANEU, ADIFF, CBC, CMP, A1C, LIPID #### [place] [id number] Sodium [Moles/Vol] 139 mmol/L Normal 136-145 [facility] Comment on above: Performed By: #### M G, GFR, ANEU, ADIFF, CBC, CMP, A1C, LIPID #### [place] [id number] Urea nitrogen [Mass/Vol] 5.0 mg/dL Low 8.0-22.0 [facility] Comment on above: Performed By: #### M G, GFR, ANEU, ADIFF, CBC, CMP, A1C, LIPID #### [address] [address] CBCon 10-04-2024 Erythrocyte distribution width (RBC) [Ratio] 17.1 % High 11.5-15.5 [facility] Comment on above: Performed By: #### M G, GFR, ANEU, ADIFF, CBC, CMP, A1C, LIPID #### [place] [id number] Hematocrit (Bld) [Volume fraction] 42.5 % Normal 40.0-52.0 [facility] Comment on above: Performed By: #### M G, GFR, ANEU, ADIFF, CBC, CMP, A1C, LIPID #### [place] [id number] Hgb 13.8 G/dL Normal 13.0-17.5 [facility] Comment on above: Performed By: #### M G, GFR, ANEU, ADIFF, CBC, CMP, A1C, LIPID #### [place] [id number] MCH (RBC) [Entitic mass] 28.4 pg Normal 27.0-33.0 [facility] Comment on above: Performed By: #### M G, GFR, ANEU, ADIFF, CBC, CMP, A1C, LIPID #### [place] [address] MCHC 32.6 G/dL Normal 32.0-36.0 [facility] Comment on above: Performed By: #### M G, GFR, ANEU, ADIFF, CBC, CMP, A1C, LIPID #### [place] [address] MCV (RBC) [Entitic vol] 87.2 fL Normal 81.0-100.0 [facility] Comment on above: Performed By: #### M G, GFR, ANEU, ADIFF, CBC, CMP, A1C, LIPID #### [place] [address] Platelet 120 10 3/mcL Low 150-450 [facility] Comment on above: Performed By: #### M G, GFR, ANEU, ADIFF, CBC, CMP, A1C, LIPID #### [place] [address] Platelet mean volume (Bld) [Entitic vol] 7.4 fL Normal 6.4-10.5 [facility] Comment on above: Performed By: #### M G, GFR, ANEU, ADIFF, CBC, CMP, A1C, LIPID #### [place] [address] RBC 4.87 10 6/mcL Normal 4.50-6.00 [facility] Comment on above: Performed By: #### M G, GFR, ANEU, ADIFF, CBC, CMP, A1C, LIPID #### [place] [address] WBC 3.8 10 3/mcL Low 4.5-10.8 [facility] Comment on above: Performed By: #### M G, GFR, ANEU, ADIFF, CBC, CMP, A1C, LIPID #### [place] [address] LABORATORYOrdered By: Adenike Swain on 10-04-2024 Blood Glucose Testing Reason Routine (10/04/24 7:18 AM) [facility] Glucose [Mass/Vol] 100 mg/dL Normal 70 - 110 mg/dL [facility] LABORATORYOrdered By: SYSTEM SYSTEM on 10-04-2024 [...] above: Interpretive Data: T esting performed on ChaoWIFI analyzer using enzymatic creatinine methodology. Electrolyte Balance [...] 10-04-2024 Magnesium [Mass/Vol] 1.9 mg/dL Normal 1.6-2.4 [facility] Comment on above: Performed By: #### M G, GFR, ANEU, ADIFF, CBC, CMP, A1C, LIPID #### [address] [address] .Auto Diffon 10-03-2024 Basophil, Absolute 0.0 10 3/mcL Normal 0.0-0.3 [facility] Comment on above: Performed By: #### M G, GFR, ANEU, ADIFF, CBC, CMP, A1C, LIPID #### [address] [address] Basophils/100 WBC (Bld) 0.9 % Normal 0.0-2.5 [facility] Comment on above: Performed By: #### M G, GFR, ANEU, ADIFF, CBC, CMP, A1C, LIPID #### [address] [address] Eosinophil, Absolute 0.1 10 3/mcL Normal 0.0-0.7 [facility] Comment on above: Performed By: #### M G, GFR, ANEU, ADIFF, CBC, CMP, A1C, LIPID #### [address] [address] Eosinophils/100 WBC (Bld) 2.0 % Normal 0.0-6.0 [facility] Comment on above: Performed By: #### M G, GFR, ANEU, ADIFF, CBC, CMP, A1C, LIPID #### [address] [address] Lymphocyte, Absolute 0.9 10 3/mcL Normal 0.9-4.3 [facility] Comment on above: Performed By: #### M G, GFR, ANEU, ADIFF, CBC, CMP, A1C, LIPID #### [place] [id number] [place] [address] Lymphocytes/100 WBC (Bld) 21.1 % Normal 20.0-40.0 [facility] Comment on above: Performed By: #### M G, GFR, ANEU, ADIFF, CBC, CMP, A1C, LIPID #### [place] [id number] [place] [address] Monocyte, Absolute 0.3 10 3/mcL Normal 0.1-1.4 [facility] Comment on above: Performed By: #### M G, GFR, ANEU, ADIFF, CBC, CMP, A1C, LIPID #### [address] [address] Monocytes/100 WBC (Bld) 7.6 % Normal 2.0-13.0 [facility] Comment on above: Performed By: #### M G, GFR, ANEU, ADIFF, CBC, CMP, A1C, LIPID #### [address] [address] Neutrophils/100 WBC (Bld) 68.4 % Normal 50.0-75.0 [facility] Comment on above: Performed By: #### M G, GFR, ANEU, ADIFF, CBC, CMP, A1C, LIPID #### [address] [address] .GFRon 10-03-2024 Estimated Glomerular Filtration Rate 109 ml/min/1.73sqm Normal [facility] Comment on above: Result Comment: Stages [...] ANEU, ADIFF, CBC, CMP, A1C, LIPID #### [address] [address] .NEUABSon 10-03-2024 Neutrophil, Absolute 2.8 10 3/mcL Normal 2.3-8.1 [facility] Comment on above: Performed By: #### M G, GFR, ANEU, ADIFF, CBC, CMP, A1C, LIPID #### [place] [id number] A1Con 10-03-2024 Glucose [Mass/Vol] 114 mg/dL Normal [facility] Comment on above: Result Comment: Zahida mated Average Glucose calculated by equation ((28.7xA1C)-46.7) Estimated average glucose (eAG) is a calculated value from Hemoglobin A1C and is member services representative of the average blood glucose level in the last 2-3 month period. Normal range: less than 114 mg/dL Performed By: #### M G, GFR, ANEU, ADIFF, CBC, CMP, A1C, LIPID #### [place] [address] HbA1c (Bld) [Mass fraction] 5.6 % Normal 4.0-6.0 [facility] Comment on above: Performed By: #### M G, GFR, ANEU, ADIFF, CBC, CMP, A1C, LIPID #### [place] [address] CBCon 10-03-2024 Erythrocyte distribution width (RBC) [Ratio] 16.6 % High 11.5-15.5 [facility] Comment on above: Performed By: #### M G, GFR, ANEU, ADIFF, CBC, CMP, A1C, LIPID #### [place] [address] Hematocrit (Bld) [Volume fraction] 41.1 % Normal 40.0-52.0 [facility] Comment on above: Performed By: #### M G, GFR, ANEU, ADIFF, CBC, CMP, A1C, LIPID #### [place] [address] Hgb 13.5 G/dL Normal 13.0-17.5 [facility] Comment on above: Performed By: #### M G, GFR, ANEU, ADIFF, CBC, CMP, A1C, LIPID #### [place] [address] MCH (RBC) [Entitic mass] 28.7 pg Normal 27.0-33.0 [facility] Comment on above: Performed By: #### M G, GFR, ANEU, ADIFF, CBC, CMP, A1C, LIPID #### [place] [id number] MCHC 32.9 G/dL Normal 32.0-36.0 [facility] Comment on above: Performed By: #### M G, GFR, ANEU, ADIFF, CBC, CMP, A1C, LIPID #### [place] [address] MCV (RBC) [Entitic vol] 87.2 fL Normal 81.0-100.0 [facility] Comment on above: Performed By: #### M G, GFR, ANEU, ADIFF, CBC, CMP, A1C, LIPID #### [place] [address] Platelet 136 10 3/mcL Low 150-450 [facility] Comment on above: Performed By: #### M G, GFR, ANEU, ADIFF, CBC, CMP, A1C, LIPID #### [place] [address] Platelet mean volume (Bld) [Entitic vol] 7.6 fL Normal 6.4-10.5 [facility] Comment on above: Performed By: #### M G, GFR, ANEU, ADIFF, CBC, CMP, A1C, LIPID #### [place] [address] RBC 4.72 10 6/mcL Normal 4.50-6.00 [facility] Comment on above: Performed By: #### M G, GFR, ANEU, ADIFF, CBC, CMP, A1C, LIPID #### [place] [address] WBC 4.2 10 3/mcL Low 4.5-10.8 [facility] Comment on above: Performed By: #### M G, GFR, ANEU, ADIFF, CBC, CMP, A1C, LIPID #### [address] [id number] CMPon 10-03-2024 Albumin Level 3.3 G/dL Normal 3.2-4.8 [facility] Comment on above: Performed By: #### M G, GFR, ANEU, ADIFF, CBC, CMP, A1C, LIPID #### [place] [id number] Albumin/Globulin [Mass ratio] 1.0 {ratio} Normal 0.9-1.6 [facility] Comment on above: Performed By: #### M G, GFR, ANEU, ADIFF, CBC, CMP, A1C, LIPID #### [place] [id number] ALP [Catalytic activity/Vol] 56 U/L Normal 38-126 [facility] Comment on above: Performed By: #### M G, GFR, ANEU, ADIFF, CBC, CMP, A1C, LIPID #### [place] [address] ALT [Catalytic activity/Vol] 10 U/L Low 12-55 [facility] Comment on above: Performed By: #### M G, GFR, ANEU, ADIFF, CBC, CMP, A1C, LIPID #### [place] [id number] AST [Catalytic activity/Vol] 16 U/L Normal 8-34 [facility] Comment on above: Performed By: #### M G, GFR, ANEU, ADIFF, CBC, CMP, A1C, LIPID #### [place] [address] Bili Total 0.60 mg/dL Normal 0.20-1.20 [facility] Comment on above: Result Comment: Use of this assay is not recommended for patients undergoing treatment with eltrombopag due to the potential for falsely elevated results. Performed By: #### M G, GFR, ANEU, ADIFF, CBC, CMP, A1C, LIPID #### [place] [address] BUN/Creatinine Ratio 9.6 ratio Low 10.0-22.0 [facility] MAIN Comment on above: Performed By: #### M G, GFR, ANEU, ADIFF, CBC, CMP, A1C, LIPID #### [address] [address] Calcium [Mass/Vol] 8.4 mg/dL Low 8.7-10.4 [facility] MAIN Comment on above: Performed By: #### M G, GFR, ANEU, ADIFF, CBC, CMP, A1C, LIPID #### [address] [address] Chloride [Moles/Vol] 105 mmol/L Normal 98-110 [facility] Comment on above: Performed By: #### M G, GFR, ANEU, ADIFF, CBC, CMP, A1C, LIPID #### [address] [address] CO2 [Moles/Vol] 31 mmol/L Normal 22-32 [facility] Comment on above: Performed By: #### M G, GFR, ANEU, ADIFF, CBC, CMP, A1C, LIPID #### [place] [id number] Creatinine [Mass/Vol] 0.73 mg/dL Normal 0.60-1.[address] [facility] MAIN Comment on above: Result Comment: Test ing performed on ChaoWIFI analyzer using enzymatic creatinine methodology. Performed By: #### M G, GFR, ANEU, ADIFF, CBC, CMP, A1C, LIPID #### [place] [id number] Electrolyte Balance 1.0 mEq/L Low 4.0-15.0 [facility] Comment on above: Performed By: #### M G, GFR, ANEU, ADIFF, CBC, CMP, A1C, LIPID #### [address] [address] Globulin 3.2 G/dL Normal 2.5-4.2 [facility] Comment on above: Performed By: #### M G, GFR, ANEU, ADIFF, CBC, CMP, A1C, LIPID #### [place] [id number] Glucose [Mass/Vol] 109 mg/dL Normal 70-110 [facility] Comment on above: Performed By: #### M G, GFR, ANEU, ADIFF, CBC, CMP, A1C, LIPID #### [address] [address] Potassium [Moles/Vol] 3.5 mmol/L Normal 3.5-5.[address] [facility] Comment on above: Performed By: #### M G, GFR, ANEU, ADIFF, CBC, CMP, A1C, LIPID #### [address] [address] Sodium [Moles/Vol] 137 mmol/L Normal 136-145 [facility] Comment on above: Performed By: #### M G, GFR, ANEU, ADIFF, CBC, CMP, A1C, LIPID #### [address] [address] Total Protein 6.5 G/dL Normal 5.7-8.2 [facility] Comment on above: Performed By: #### M G, GFR, ANEU, ADIFF, CBC, CMP, A1C, LIPID #### [address] [address] Urea nitrogen [Mass/Vol] 7.0 mg/dL Low 8.0-22.0 [facility] Comment on above: Performed By: #### M G, GFR, ANEU, ADIFF, CBC, CMP, A1C, LIPID #### [address] [address] LABORATORYOrdered By: Jorge Wahl on 10-03-2024 Blood Glucose Testing Reason Routine (10/03/24 4:57 PM) [facility] Glucose [Mass/Vol] 81 mg/dL Normal 70 - 110 mg/dL [facility] LABORATORYOrdered By: Sophie Simental on 10-03-2024 Blood Glucose Testing Reason Routine (10/03/24 11:18 AM) [facility] Glucose [Mass/Vol] 99 mg/dL Normal 70 - 110 mg/dL [facility] LABORATORYOrdered By: SYSTEM SYSTEM on 10-03-2024 [...] above: Interpretive Data: T esting performed on ChaoWIFI analyzer using enzymatic creatinine methodology. Electrolyte Balance [...] calculated value from Hemoglobin A1C and is member services representative of the average blood glucose level [...] 10-03-2024 Cholesterol [Mass/Vol] 105 mg/dL Normal 50-199 [facility] Comment on above: Result Comment: Chol esterol Reference Interval: Less than 200 Desirable 200-239 Borderline high risk 240 and above High risk Performed By: #### M G, GFR, ANEU, ADIFF, CBC, CMP, A1C, LIPID #### [place] [address] Cholesterol in HDL [Mass/Vol] 17 mg/dL Low 40-59 [facility] Comment on above: Performed By: #### M G, GFR, ANEU, ADIFF, CBC, CMP, A1C, LIPID #### [place] [address] Cholesterol in LDL [Mass/Vol] 58 mg/dL Normal 0-129 [facility] Comment on above: Performed By: #### M G, GFR, ANEU, ADIFF, CBC, CMP, A1C, LIPID #### [place] [address] Triglyceride [Mass/Vol] 151 mg/dL High 3-149 [facility] Comment on above: Performed By: #### M G, GFR, ANEU, ADIFF, CBC, CMP, A1C, LIPID #### [place] [id number] MGon 10-03-2024 Magnesium [Mass/Vol] 2.1 mg/dL Normal 1.6-2.4 [facility] MA[facility] Comment on above: Performed By: #### M G, GFR, ANEU, ADIFF, CBC, CMP, A1C, LIPID #### [address] [address] .Auto Diffon 10-02-2024 Basophil, Absolute 0.0 10 3/mcL Normal 0.0-0.3 [facility] Comment on above: Performed By: #### M G, GFR, ANEU, ADIFF, CBC, CMP, A1C, LIPID #### [place] [id number] Basophils/100 WBC (Bld) 0.6 % Normal 0.0-2.5 [facility] Comment on above: Performed By: #### M G, GFR, ANEU, ADIFF, CBC, CMP, A1C, LIPID #### [place] [address] Eosinophil, Absolute 0.1 10 3/mcL Normal 0.0-0.7 [facility] MAIN Comment on above: Performed By: #### M G, GFR, ANEU, ADIFF, CBC, CMP, A1C, LIPID #### [address] [address] Eosinophils/100 WBC (Bld) 1.0 % Normal 0.0-6.0 [facility] Comment on above: Performed By: #### M G, GFR, ANEU, ADIFF, CBC, CMP, A1C, LIPID #### [address] [address] Lymphocyte, Absolute 1.2 10 3/mcL Normal 0.9-4.3 [facility] MAIN Comment on above: Performed By: #### M G, GFR, ANEU, ADIFF, CBC, CMP, A1C, LIPID #### [address] [address] Lymphocytes/100 WBC (Bld) 18.1 % Low 20.0-40.0 [facility] Comment on above: Performed By: #### M G, GFR, ANEU, ADIFF, CBC, CMP, A1C, LIPID #### [address] [address] Monocyte, Absolute 0.7 10 3/mcL Normal 0.1-1.4 [facility] Comment on above: Performed By: #### M G, GFR, ANEU, ADIFF, CBC, CMP, A1C, LIPID #### [address] [address] Monocytes/100 WBC (Bld) 10.0 % Normal 2.0-13.0 [facility] Comment on above: Performed By: #### M G, GFR, ANEU, ADIFF, CBC, CMP, A1C, LIPID #### [address] [address] Neutrophils/100 WBC (Bld) 70.3 % Normal 50.0-75.0 [facility] Comment on above: Performed By: #### M G, GFR, ANEU, ADIFF, CBC, CMP, A1C, LIPID #### [address] [address] Basophil, Absolute 0.1 10 3/mcL Normal 0.0-0.3 [facility] Comment on above: Performed By: #### A DIFF, MDW, PRO, TROPHS, GFR, ANEU, CBC, PBNP, BMP ####[address] [address] Basophils/100 WBC (Bld) 0.8 % Normal 0.0-2.5 [facility] Comment on above: Performed By: #### A DIFF, MDW, PRO, TROPHS, GFR, ANEU, CBC, PBNP, BMP ####[place] [address] [place], [place] [address] Eosinophil, Absolute 0.1 10 3/mcL Normal 0.0-0.7 [facility] Comment on above: Performed By: #### A DIFF, MDW, PRO, TROPHS, GFR, ANEU, CBC, PBNP, BMP ####[place] [address] [place], [place] [address] Eosinophils/100 WBC (Bld) 1.2 % Normal 0.0-6.0 [facility] Comment on above: Performed By: #### A DIFF, MDW, PRO, TROPHS, GFR, ANEU, CBC, PBNP, BMP ####[place] [address] [place], [place] [address] Lymphocyte, Absolute 1.4 10 3/mcL Normal 0.9-4.3 [facility] Comment on above: Performed By: #### A DIFF, MDW, PRO, TROPHS, GFR, ANEU, CBC, PBNP, BMP ####[address] [address] Lymphocytes/100 WBC (Bld) 13.3 % Low 20.0-40.0 [facility] Comment on above: Performed By: #### A DIFF, MDW, PRO, TROPHS, GFR, ANEU, CBC, PBNP, BMP ####[place] [address] [place], [place] [address] Monocyte, Absolute 0.8 10 3/mcL Normal 0.1-1.4 [facility] Comment on above: Performed By: #### A DIFF, MDW, PRO, TROPHS, GFR, ANEU, CBC, PBNP, BMP ####[facility] [place], [place] [address] Monocytes/100 WBC (Bld) 7.6 % Normal 2.0-13.0 [facility] Comment on above: Performed By: #### A DIFF, MDW, PRO, TROPHS, GFR, ANEU, CBC, PBNP, BMP ####[facility] [place], [place] [address] Neutrophils/100 WBC (Bld) 77.1 % High 50.0-75.0 [facility] Comment on above: Performed By: #### A DIFF, MDW, PRO, TROPHS, GFR, ANEU, CBC, PBNP, BMP ####[facility] [place], [place] [address] .GFRon 10-02-2024 Estimated Glomerular Filtration Rate 110 ml/min/1.73sqm [facility] MAIN Comment on above: Result Comment: [...] ANEU, ADIFF, CBC, CMP, A1C, LIPID #### [address] [address] Estimated Glomerular Filtration Rate 104 ml/min/1.73sqm Normal [facility] Comment on above: Result Comment: Stages [...] PRO, TROPHS, GFR, ANEU, CBC, PBNP, BMP ####[place] [address] [place], [place] [address] .MDWon 10-02-2024 Monocyte Distribution Width 19.51 Normal 0.00-20.00 [facility] Comment on above: Result Comment: For ED adult patients suspected of sepsis, MDW<=20.0 does not rule out sepsis or risk of sepsis Performed By: #### A DIFF, MDW, PRO, TROPHS, GFR, ANEU, CBC, PBNP, BMP ####[place] [address] [place], [place] [address] .NEUABSon 10-02-2024 Neutrophil, Absolute 4.7 10 3/mcL Normal 2.3-8.1 [facility] MAIN Comment on above: Performed By: #### M G, GFR, ANEU, ADIFF, CBC, CMP, A1C, LIPID #### [address] [address] Neutrophil, Absolute 8.4 10 3/mcL High 2.3-8.1 [facility] Comment on above: Performed By: #### A DIFF, MDW, PRO, TROPHS, GFR, ANEU, CBC, PBNP, BMP ####[facility] [place], [place] [address] APTTon 10-02-2024 aPTT Coag (Bld) [Time] 36.5 s High 25.0-35.0 [facility] Comment on above: Result Comment: For Heparin anticoagulation therapy, the recommended therapeutic range is: 54-77 seconds (APTT Correlation with Anti-Xa therapeutic range of 0.3-0.7 units/ml). PLEASE REFERENCE THE PHARMACY PROTOCOL FOR DOSING. Performed By: #### M G, GFR, ANEU, ADIFF, CBC, CMP, A1C, LIPID #### [address] [address] aPTT Coag (Bld) [Time] 29.3 s Normal 25.0-35.0 [facility] Comment on above: Result Comment: For Heparin anticoagulation therapy, the recommended therapeutic range is: 54-77 seconds (APTT Correlation with Anti-Xa therapeutic range of 0.3-0.7 units/ml). PLEASE REFERENCE THE PHARMACY PROTOCOL FOR DOSING. Performed By: #### M G, GFR, ANEU, ADIFF, CBC, CMP, A1C, LIPID #### [address] [address] [facility] 10-02-2024 BUN/Creatinine Ratio 14 ratio Normal 7-27 [facility] Comment on above: Performed By: #### A DIFF, MDW, PRO, TROPHS, GFR, ANEU, CBC, PBNP, BMP ####[place] [address] [place], [place] [address] Calcium [Mass/Vol] 8.9 mg/dL Normal 8.4-10.2 [facility] Comment on above: Performed By: #### A FARHAD MDW, PRO, TROPHS, GFR, ANEU, CBC, PBNP, BMP ####[place] [address] [place], [place] [address] Chloride [Moles/Vol] 101 mmol/L Normal 98-107 [facility] Comment on above: Performed By: #### A DIFF, MDW, PRO, TROPHS, GFR, ANEU, CBC, PBNP, BMP ####[place] [address] [place], [place] [address] CO2 [Moles/Vol] 31 mmol/L High 22-29 [facility] Comment on above: Performed By: #### A DIFF, MDW, PRO, TROPHS, GFR, ANEU, CBC, PBNP, BMP ####[place] [address] [place], [place] [address] Creatinine [Mass/Vol] 0.85 mg/dL Normal 0.67-1.17 [facility] Comment on above: Performed By: #### A DIFF, MDW, PRO, TROPHS, GFR, ANEU, CBC, PBNP, BMP ####[address] [address] Electrolyte Balance 6.0 mEq/L Normal 4.0-15.0 [facility] Comment on above: Performed By: #### A MD FARHADW, PRO, TROPHS, GFR, ANEU, CBC, PBNP, BMP ####[address] [address] Glucose [Mass/Vol] 157 mg/dL High 70-105 [facility] Comment on above: Performed By: #### A ELY LLAMAS, PRO, TROPHS, GFR, ANEU, CBC, PBNP, BMP ####[address] [address] Potassium [Moles/Vol] 3.1 mmol/L Low 3.5-5.1 [facility] Comment on above: Performed By: #### A ELY LLAMAS, PRO, TROPHS, GFR, ANEU, CBC, PBNP, BMP ####[address] [address] Sodium [Moles/Vol] 138 mmol/L Normal 136-145 [facility] Comment on above: Performed By: #### A ELY LLAMAS, PRO, TROPHS, GFR, ANEU, CBC, PBNP, BMP ####[address] [address] Urea nitrogen [Mass/Vol] 12 mg/dL Normal 7-18 [facility] Comment on above: Performed By: #### A ELY LLAMAS, PRO, TROPHS, GFR, ANEU, CBC, PBNP, BMP ####[address] [address] CAIONon 10-02-2024 Calcium Ionized 1.09 mmol/L Low 1.12-1.32 [facility] Comment on above: Performed By: #### M G, GFR, ANEU, ADIFF, CBC, CMP, A1C, LIPID #### [facility] [address] [place] [address] CBCon 10-02-2024 Erythrocyte distribution width (RBC) [Ratio] 16.6 % High 11.5-15.5 [facility] Comment on above: Performed By: #### M G, GFR, ANEU, ADIFF, CBC, CMP, A1C, LIPID #### [place] [id number] Hematocrit (Bld) [Volume fraction] 47.4 % Normal 40.0-52.0 [facility] Comment on above: Performed By: #### M G, GFR, ANEU, ADIFF, CBC, CMP, A1C, LIPID #### [place] [id number] Hgb 15.6 G/dL Normal 13.0-17.5 [facility] Comment on above: Performed By: #### M G, GFR, ANEU, ADIFF, CBC, CMP, A1C, LIPID #### [place] [id number] MCH (RBC) [Entitic mass] 28.7 pg Normal 27.0-33.0 [facility] Comment on above: Performed By: #### M G, GFR, ANEU, ADIFF, CBC, CMP, A1C, LIPID #### [place] [id number] MCHC 32.9 G/dL Normal 32.0-36.0 [facility] Comment on above: Performed By: #### M G, GFR, ANEU, ADIFF, CBC, CMP, A1C, LIPID #### [place] [id number] MCV (RBC) [Entitic vol] 87.2 fL Normal 81.0-100.0 [facility] Comment on above: Performed By: #### M G, GFR, ANEU, ADIFF, CBC, CMP, A1C, LIPID #### [place] [id number] Platelet 139 10 3/mcL Low 150-450 [facility] Comment on above: Performed By: #### M G, GFR, ANEU, ADIFF, CBC, CMP, A1C, LIPID #### [place] [id number] Platelet mean volume (Bld) [Entitic vol] 7.7 fL Normal 6.4-10.5 [facility] Comment on above: Performed By: #### M G, GFR, ANEU, ADIFF, CBC, CMP, A1C, LIPID #### [address] [address] RBC 5.44 10 6/mcL Normal 4.50-6.00 [facility] Comment on above: Performed By: #### M G, GFR, ANEU, ADIFF, CBC, CMP, A1C, LIPID #### [place] [address] WBC 6.6 10 3/mcL Normal 4.5-10.8 [facility] Comment on above: Performed By: #### M G, GFR, ANEU, ADIFF, CBC, CMP, A1C, LIPID #### [place] [address] Erythrocyte distribution width (RBC) [Ratio] 16.6 % High 11.5-15.5 [facility] Comment on above: Performed By: #### A DIFF, MDW, PRO, TROPHS, GFR, ANEU, CBC, PBNP, BMP ####[address] [address] Hematocrit (Bld) [Volume fraction] 51.4 % Normal 40.0-52.0 [facility] Comment on above: Performed By: #### A DIFF, MDW, PRO, TROPHS, GFR, ANEU, CBC, PBNP, BMP ####[address] [address] Hgb 17.1 G/dL Normal 13.0-17.5 [facility] Comment on above: Performed By: #### A DIFF, MDW, PRO, TROPHS, GFR, ANEU, CBC, PBNP, BMP ####[address] [address] MCH (RBC) [Entitic mass] 28.9 pg Normal 27.0-33.0 [facility] Comment on above: Performed By: #### A DIFF, MDW, PRO, TROPHS, GFR, ANEU, CBC, PBNP, BMP ####[address] [address] MCHC 33.3 G/dL Normal 32.0-36.0 [facility] Comment on above: Performed By: #### A DIFF, MDW, PRO, TROPHS, GFR, ANEU, CBC, PBNP, BMP ####[facility] [place], [place] [address] MCV (RBC) [Entitic vol] 86.7 fL Normal 81.0-100.0 [facility] Comment on above: Performed By: #### A DIFF, MDW, PRO, TROPHS, GFR, ANEU, CBC, PBNP, BMP ####[place] [address] [place], [place] [address] Platelet 199 10 3/mcL Normal 150-450 [facility] Comment on above: Performed By: #### A DIFF, W, PRO, TROPHS, GFR, ANEU, CBC, PBNP, BMP ####[place] [address] [place] [id number] Platelet mean volume (Bld) [Entitic vol] 7.3 fL Normal 6.4-10.5 [facility] Comment on above: Performed By: #### A FARHAD, ELY, PRO, TROPHS, GFR, ANEU, CBC, PBNP, BMP ####[place] [address] [place], [place] [address] RBC 5.93 10 6/mcL Normal 4.50-6.00 [facility] Comment on above: Performed By: #### A DIFFELY, PRO, TROPHS, GFR, ANEU, CBC, PBNP, BMP ####[facility] [place], [place] [address] WBC 10.9 10 3/mcL High 4.5-10.8 [facility] Comment on above: Performed By: #### A DIFF, MDPoli, PRO, TROPHS, GFR, ANEU, CBC, PBNP, BMP ####[facility] [place], [place] [address] CMPon 10-02-2024 Albumin Level 3.2 G/dL Normal 3.2-4.8 [facility] Comment on above: Performed By: #### M G, GFR, ANEU, ADIFF, CBC, CMP, A1C, LIPID #### [place] [id number] Albumin/Globulin [Mass ratio] 0.9 {ratio} Normal 0.9-1.6 [facility] Comment on above: Performed By: #### M G, GFR, ANEU, ADIFF, CBC, CMP, A1C, LIPID #### [place] [id number] ALP [Catalytic activity/Vol] 60 U/L Normal 38-126 [facility] Comment on above: Performed By: #### M G, GFR, ANEU, ADIFF, CBC, CMP, A1C, LIPID #### [place] [id number] ALT/SGPT <8 Low 12-55 [facility] Comment on above: Performed By: #### M G, GFR, ANEU, ADIFF, CBC, CMP, A1C, LIPID #### [place] [id number] AST [Catalytic activity/Vol] 15 U/L Normal 8-34 [facility] Comment on above: Performed By: #### M G, GFR, ANEU, ADIFF, CBC, CMP, A1C, LIPID #### [place] [id number] Bili Total 0.60 mg/dL Normal 0.20-1.20 [facility] Comment on above: Result Comment: Use of this assay is not recommended for patients undergoing treatment with eltrombopag due to the potential for falsely elevated results. Performed By: #### M G, GFR, ANEU, ADIFF, CBC, CMP, A1C, LIPID #### [place] [id number] BUN/Creatinine Ratio 15.5 ratio Normal 10.0-22.0 [facility] Comment on above: Performed By: #### M G, GFR, ANEU, ADIFF, CBC, CMP, A1C, LIPID #### [place] [id number] Calcium [Mass/Vol] 8.4 mg/dL Low 8.7-10.4 [facility]IN Comment on above: Performed By: #### M G, GFR, ANEU, ADIFF, CBC, CMP, A1C, LIPID #### [address] [address] Chloride [Moles/Vol] 102 mmol/L Normal 98-110 [facility] Comment on above: Performed By: #### M G, GFR, ANEU, ADIFF, CBC, CMP, A1C, LIPID #### [address] [address] CO2 [Moles/Vol] 25 mmol/L Normal 22-32 [facility] Comment on above: Performed By: #### M G, GFR, ANEU, ADIFF, CBC, CMP, A1C, LIPID #### [address] [address] Creatinine [Mass/Vol] 0.71 mg/dL Normal 0.60-1.[address] [facility] MAIN Comment on above: Result Comment: Test ing performed on ChaoWIFI analyzer using enzymatic creatinine methodology. Performed By: #### M G, GFR, ANEU, ADIFF, CBC, CMP, A1C, LIPID #### [address] [address] Electrolyte Balance 12.0 mEq/L Normal 4.0-15.0 [facility] Comment on above: Performed By: #### M G, GFR, ANEU, ADIFF, CBC, CMP, A1C, LIPID #### [address] [address] Globulin 3.5 G/dL Normal 2.5-4.2 [facility] Comment on above: Performed By: #### M G, GFR, ANEU, ADIFF, CBC, CMP, A1C, LIPID #### [address] [address] Glucose [Mass/Vol] 109 mg/dL Normal 70-110 [facility] Comment on above: Performed By: #### M G, GFR, ANEU, ADIFF, CBC, CMP, A1C, LIPID #### [address] [address] Potassium [Moles/Vol] 3.5 mmol/L Normal 3.5-5.[address] [facility] Comment on above: Performed By: #### M G, GFR, ANEU, ADIFF, CBC, CMP, A1C, LIPID #### [place] [address] [place] [address] Sodium [Moles/Vol] 139 mmol/L Normal 136-145 [facility] Comment on above: Performed By: #### M G, GFR, ANEU, ADIFF, CBC, CMP, A1C, LIPID #### [address] [address] Total Protein 6.7 G/dL Normal 5.7-8.2 [facility] Comment on above: Performed By: #### M G, GFR, ANEU, ADIFF, CBC, CMP, A1C, LIPID #### [address] [id number] Urea nitrogen [Mass/Vol] 11.0 mg/dL Normal 8.0-22.0 [facility] Comment on above: Performed By: #### M G, GFR, ANEU, ADIFF, CBC, CMP, A1C, LIPID #### [address] [id number] LABORATORYOrdered By: SYSTEM SYSTEM on 10-02-2024 aPTT [...] above: Interpretive Data: T esting performed on [employer] analyzer using enzymatic creatinine methodology. Electrolyte Balance [...] Comment on above: Interpretive Data: [employer] (CHEST, 1992, [id number]) [...] ng/L Male: 0-54 ng/L Testing performed on [employer] analyzer using direct chemiluminescent technology. TSH Qn [...] ng/L Male: 0-76 ng/L Testing performed on [employer] using a homogeneous sandwich chemiluminescent immunoassay based on [employer] technology. Basophils (Bld) [#/Vol] 0.1 103/mcL Normal [...] Comment on above: Interpretive Data: [employer] (CHEST, 1991, [id number]) [...] ng/L Male: 0-76 ng/L Testing performed on [employer] using a homogeneous sandwich chemiluminescent immunoassay based on [employer] technology. Urea nitrogen [Mass/Vol] 12 mg/dL Normal [...] 10-02-2024 Magnesium [Mass/Vol] 1.8 mg/dL Normal 1.6-2.4 [facility] MAIN Comment on above: Performed By: #### M G, GFR, ANEU, ADIFF, CBC, CMP, A1C, LIPID #### [address] [id number] Magnesium [Mass/Vol] 1.7 mg/dL Low 1.8-2.4 [facility] Comment on above: Performed By: #### M G ####[facility] [place], [place] [address] PBNPon 10-02-2024 Natriuretic peptide B (Bld) [Mass/Vol] 2223 pg/mL High 0-900 [facility] MAIN Comment on above: Performed By: #### M G, GFR, ANEU, ADIFF, CBC, CMP, A1C, LIPID #### [address] [id number] Natriuretic peptide B (Bld) [Mass/Vol] 973 pg/mL High 0-125 [facility] Comment on above: Result Comment: NT-p roBNP results of less than 300 pg/mL effectively rules out acute congestive heart failure with 99% negative predictive value. Performed By: #### A ELY LLAMAS, PRO, TROPHS, GFR, ANEU, CBC, PBNP, BMP ####Larry [address] [place], [place] [address] PHOSon 10-02-2024 Phosphate [Mass/Vol] 2.2 mg/dL Low 2.4-5.1 [facility] Comment on above: Result Comment: No te - New Reference Range in effect 19 Performed By: #### M G, GFR, ANEU, ADIFF, CBC, CMP, A1C, LIPID #### [address] [address] PROon 10-02-2024 INR Coag (PPP) [Relative time] 1.2 {INR} Normal [facility] Comment on above: Result Comment: [employer] (CHEST, 1992, 102:312S-25S) recommended therapeutic range for oral anticoagulant therapy is: LOW RISK: Prophylaxis of venous thrombosis INR: 2.0-3.0 Treatment of pulmonary embolism 2.0-3.0 Prevention of systemic embolism 2.0-3.0 HIGH RISK: Mechanical prosthetic valves 2.5-3.5 Performed By: #### M G, GFR, ANEU, ADIFF, CBC, CMP, A1C, LIPID #### [address] [address] PT Coag (PPP) [Time] 13.4 s Normal 9.0-14.4 [facility] Comment on above: Result Comment: Effe ctive 12/11/07, Protime results may be affected by some antibiotics (i.e. Ciprofloxacin, Azithromycin, Bactrim) which may potentiate the action of oral anticoagulants, with further increases in Protime/INR. Performed By: #### M Abbey, GFR, ANEU, ADIFF, CBC, CMP, A1C, LIPID #### [place] [address] [place] [address] PT Coag (PPP) [Time] 13.5 s Normal 9.0-14.4 [facility] Comment on above: Performed By: #### A ELY LLAMAS, PRO, TROPHS, GFR, ANEU, CBC, PBNP, BMP ####[place] [address] [place], [place] [address] PT International Ratio 1.[address] [facility] Comment on above: Result Comment: [employer] (CHEST, 1992, 102:312S-25S) recommended therapeutic range for oral anticoagulant therapy is: LOW RISK: Prophylaxis of venous thrombosis INR: 2.0-3.0 Treatment of pulmonary embolism 2.0-3.0 Prevention of systemic embolism 2.0-3.0 HIGH RISK: Mechanical prosthetic valves 2.5-3.5 Performed By: #### A ELY LLAMAS, PRO, TROPHS, GFR, ANEU, CBC, PBNP, BMP ####[place] [address] [place], [place] [address] TROPHSon 10-02-2024 High Sensitivity Troponin I 6 ng/L Normal 0-54 [facility] Comment on above: Result Comment: High Sensitive Troponin I Reference Ranges: Female: 0-34 ng/L Male: 0-54 ng/L Testing performed on [employer] analyzer using direct chemiluminescent technology. Performed By: #### M G, GFR, ANEU, ADIFF, CBC, CMP, A1C, LIPID #### [address] [address] High Sensitivity Troponin I 9 ng/L Normal 0-76 [facility] Comment on above: Result Comment: High Sensitive Troponin I Reference Ranges: Female: 0-51 ng/L Male: 0-76 ng/L Testing performed on Dimension EXL using a homogeneous sandwich chemiluminescent immunoassay based on [employer] technology. Performed By: #### T ROP ####[address] [place], [place] [address] High Sensitivity Troponin I 9 ng/L Normal 0-76 [facility] Comment on above: Result Comment: High Sensitive Troponin I Reference Ranges: Female: 0-51 ng/L Male: 0-76 ng/L Testing performed on Dimension EXL using a homogeneous sandwich chemiluminescent immunoassay based on [employer] technology. Performed By: #### A DIFF, MDW, PRO, TROPHS, GFR, ANEU, CBC, PBNP, BMP ####[address] [place], [place] [address] TSHon 10-02-2024 TSH 1.923 mIU/mL Normal 0.550-4.780 [facility] Comment on above: Performed By: #### M G, GFR, ANEU, ADIFF, CBC, CMP, A1C, LIPID #### [address] [address] XR CHEST 1 VIEWon 10-02-2024 XR CHEST [...] 10/02/2024 2:02:33 AM Ordering Provider: DELORES MURO [facility] XR ANKLE MINIMUM 3 VIEWS LEF [...] 08/29/2024 3:52:38 PM Ordering Provider: EDER FARFAN [facility] XR CHEST 2 VIEWSon XR CHEST 2 [...] 08/29/2024 4:51:29 PM Ordering Provider: ISADORA Kate [facility] .Auto Diffon 08-13-2024 Basophil, Absolute 0.0 10 3/mcL Normal 0.0-0.2 [facility] Comment on above: Performed By: #### A ERIC, GFR, CBC, CMP, PBNP, ADRAMANA MARTÍNEZ MDW ####[place] [address] [place], [place] [address] Basophils/100 WBC (Bld) 0.7 % Normal 0.0-2.5 [facility] Comment on above: Performed By: #### A ERIC, GFR, CBC, CMP, PBNP, ADMAURICIO, ELY BOLES ####[facility] [place], [place] [address] Eosinophil, Absolute 0.1 10 3/mcL Normal 0.0-0.7 [facility] Comment on above: Performed By: #### A ERIC, GFR, CBC, CMP, PBNP, ADRAMANA MARTÍNEZ MDW ####[address] [address] Eosinophils/100 WBC (Bld) 1.3 % Normal 0.0-7.0 [facility] Comment on above: Performed By: #### A ERIC, GFR, CBC, CMP, PBNP, RAMANA FOUNTAIN MDW ####[facility] [place], [place] [address] Lymphocyte, Absolute 0.8 10 3/mcL Low 0.9-4.3 [facility] Comment on above: Performed By: #### A ERIC, GFR, CBC, CMP, PBNP, ADRAMANA MARTÍNEZ MDW ####[address] [place], [place] [address] Lymphocytes/100 WBC (Bld) 19.9 % Low 20.0-40.0 [facility] Comment on above: Performed By: #### A ERIC, GFR, CBC, CMP, PBNP, RAMANA FOUNTAIN MDW ####[address] [place], [place] [address] Monocyte, Absolute 0.3 10 3/mcL Normal 0.1-1.4 [facility] Comment on above: Performed By: #### A ERIC, GFR, CBC, CMP, PBNP, RAMANA FOUNTAIN MDW ####[address] [place], [place] [address] Monocytes/100 WBC (Bld) 6.9 % Normal 2.0-13.0 [facility] Comment on above: Performed By: #### A ERIC, GFR, CBC, CMP, PBNP, RAMANA FOUNTAIN MDW ####[address] [place], [place] [address] Neutrophils/100 WBC (Bld) 71.2 % Normal 50.0-75.0 [facility] Comment on above: Performed By: #### A ERIC, GFR, CBC, CMP, PBBAY, RAMNAA FOUNTAIN MDW ####[address] [place], [place] [address] .GFRon 08-13-2024 Estimated Glomerular Filtration Rate 107 ml/min/1.73sqm Normal [facility] Comment on above: Result Comment: Stages [...] CMP, PBNP, RAMANA FOUNTAIN MDW ####[address] [place] [id number] .MDWon 08-13-2024 Monocyte Distribution Width 19.39 Normal 0.00-20.00 [facility] Comment on above: Result Comment: For ED adult patients suspected of sepsis, MDW<=20.0 does not rule out sepsis or risk of sepsis Performed By: #### A ERIC, GFR, CBC, CMP, PBNP, ADRAMANA MARTÍNEZ MDW ####[address] [place] [address] .NEUABSon 08-13-2024 Neutrophil, Absolute 2.9 10 3/mcL Normal 2.3-8.1 [facility] Comment on above: Performed By: #### A ERIC, GFR, CBC, CMP, PBBAY, RAMANA FOUNTAIN MDW ####[address] [address] CBCon 08-13-2024 Erythrocyte distribution width (RBC) [Ratio] 17.1 % High 11.5-15.5 [facility] Comment on above: Performed By: #### A ERIC, GFR, CBC, CMP, PBNP, RAMANA FOUNTAIN MDW ####[address] [place] [address] Hematocrit (Bld) [Volume fraction] 42.8 % Normal 40.0-52.0 [facility] Comment on above: Performed By: #### A ERIC, GFR, CBC, CMP, PBNP, RAMANA FOUNTAIN MDW ####[place] [address] [address] Hgb 14.0 G/dL Normal 13.0-17.5 [facility] Comment on above: Performed By: #### A ERIC, GFR, CBC, CMP, PBNP, RAMANA FOUNTAIN MDW ####[place] [address] [address] MCH (RBC) [Entitic mass] 27.9 pg Normal 27.0-33.0 [facility] Comment on above: Performed By: #### A ERIC, GFR, CBC, CMP, JULIOCESAR, RAMANA FOUNTAIN MDW ####[address] [place], [place] [address] MCHC 32.8 G/dL Normal 32.0-36.0 [facility] Comment on above: Performed By: #### A ERIC, GFR, CBC, CMP, PBNP, RAMANA FOUNTAIN MDW ####[address] [place], [place] [address] MCV (RBC) [Entitic vol] 84.9 fL Normal 81.0-100.0 [facility] Comment on above: Performed By: #### A ERIC, GFR, CBC, CMP, PBNP, RAMANA FOUNTAIN MDW ####[address] [place], [place] [address] Platelet 137 10 3/mcL Low 150-450 [facility] Comment on above: Performed By: #### A ERIC, GFR, CBC, CMP, PBNP, RAMANA FOUNTAIN MDW ####[address] [place], [place] [address] Platelet mean volume (Bld) [Entitic vol] 6.7 fL Normal 6.4-10.5 [facility] Comment on above: Performed By: #### A ERIC, GFR, CBC, CMP, PBBAY, RAMANA FOUNTAIN MDW ####[address] [place] [id number] RBC 5.04 10 6/mcL Normal 4.50-6.00 [facility] Comment on above: Performed By: #### A ERIC, GFR, CBC, CMP, PBBAY, RAMANA FOUNTAIN MDW ####[address] [place] [id number] WBC 4.1 10 3/mcL Low 4.5-10.8 [facility] Comment on above: Performed By: #### A ERIC, GFR, CBC, CMP, PBNP, RAMANA FOUNTAIN MDW ####[address] [place], [place] [address] CMPon 08-13-2024 Albumin Level 3.3 G/dL Low 3.5-5.0 [facility] Comment on above: Performed By: #### A ERIC, GFR, CBC, CMP, PBNP, ADRAMANA MARTÍNEZ MDW ####[address] [place], [place] [address] Albumin/Globulin [Mass ratio] 0.8 {ratio} Low 1.1-2.5 [facility] Comment on above: Performed By: #### A ERIC, GFR, CBC, CMP, PBNP, RAMANA FOUNTAIN MDW ####[address] [place], [place] [address] ALP [Catalytic activity/Vol] 76 U/L Normal 40-135 [facility] Comment on above: Performed By: #### A ERIC, GFR, CBC, CMP, PBNP, RAMANA FOUNTAIN MDW ####[address] [place], [place] [address] ALT [Catalytic activity/Vol] 10 U/L Low 16-63 [facility] Comment on above: Performed By: #### A ERIC, GFR, CBC, CMP, PBNP, RAMANA FOUNTAIN MDW ####[address] [place], [place] [address] AST [Catalytic activity/Vol] 14 U/L Normal 10-40 [facility] Comment on above: Performed By: #### A EIRC, GFR, CBC, CMP, PBNP, RAMANA FOUNTAIN MDW ####[address] [place], [place] [address] Bili Total 0.4 mg/dL Normal 0.2-1.0 [facility] Comment on above: Result Comment: Use of this assay is not recommended for patients undergoing treatment with eltrombopag due to the potential for falsely elevated results. Performed By: #### A ERIC, GFR, CBC, CMP, PBNP, RAMANA FOUNTAIN MDW ####[address] [place], [place] [address] BUN/Creatinine Ratio 13 ratio Normal 7-27 [facility] Comment on above: Performed By: #### A ERIC, GFR, CBC, CMP, PBBAY, RAMANA FOUNTAIN MDW ####[address] [place], [place] [address] Calcium [Mass/Vol] 8.6 mg/dL Normal 8.4-10.2 [facility] Comment on above: Performed By: #### A ERIC, GFR, CBC, CMP, PBNP, RAMANA FOUNTAIN MDW ####[address] [place], [place] [address] Chloride [Moles/Vol] 101 mmol/L Normal 98-107 [facility] Comment on above: Performed By: #### A ERIC, GFR, CBC, CMP, PBBAY, RAMANA FOUNTAIN MDW ####[address] [place], [place] [address] CO2 [Moles/Vol] 35 mmol/L High 22-29 [facility] Comment on above: Performed By: #### A ERIC, GFR, CBC, CMP, PBBAY, RAMANA FOUNTAIN MDW ####[address] [place], [place] [address] Creatinine [Mass/Vol] 0.78 mg/dL Normal 0.70-1.30 [facility] Comment on above: Result Comment: Test ing performed on Siemens Dimension EXL analyzer using a modified kinetic Ciera technique. Performed By: #### A ERIC, GFR, CBC, CMP, PBNP, RAMANA FOUNTAIN MDW ####[address] [place], [place] [address] Electrolyte Balance 2.0 mEq/L Low 4.0-15.0 [facility] Comment on above: Performed By: #### A ERIC, GFR, CBC, CMP, PBBYA, RAMANA FOUNTAIN MDW ####[address] [place], [place] [address] Globulin 3.9 G/dL High 1.5-3.8 [facility] Comment on above: Performed By: #### A ERIC, GFR, CBC, CMP, PBNP, RAMANA FOUNTAIN MDW ####[address] [place], [place] [address] Glucose [Mass/Vol] 105 mg/dL Normal 70-105 [facility] Comment on above: Performed By: #### A ERIC, GFR, CBC, CMP, PBNP, RAMANA FOUNTAIN MDW ####[address] [place], [place] [address] Potassium [Moles/Vol] 3.8 mmol/L Normal 3.5-5.1 [facility] Comment on above: Performed By: #### A ERIC, GFR, CBC, CMP, PBNP, RAMANA FOUNTAIN MDW ####[address] [place], [place] [address] Sodium [Moles/Vol] 138 mmol/L Normal 136-145 [facility] Comment on above: Performed By: #### A ERIC, GFR, CBC, CMP, PBNP, RAMANA FOUNTAIN MDW ####[address] [place], [place] [address] Total Protein 7.2 G/dL Normal 6.4-8.2 [facility] Comment on above: Performed By: #### A ERIC, GFR, CBC, CMP, PBNP, RAMANA FOUNTAIN MDW ####[address] [place], [place] [address] Urea nitrogen [Mass/Vol] 10 mg/dL Normal 7-18 [facility] Comment on above: Performed By: #### A ERIC, GFR, CBC, CMP, PBNP, RAMANA FOUNTAIN MDW ####[facility] [place], [place] [address] CVFLURVon 08-13-2024 FLU A PCR Negative Normal Negative [facility] Comment on above: Performed By: #### C VFLURV ####[facility] [place], [place] [address] FLU B PCR Negative Normal Negative [facility] Comment on above: Performed By: #### C VFLURV ####[address] [place], [place] [address] RSV PCR Negative Normal Negative [facility] Comment on above: Performed By: #### C VFLURV ####[address] [place], [place] [address] SARS-CoV-2 (COVID-19) RNA ROSE+probe Ql (Unsp spec) Negative Normal Negative [facility] Comment on above: Result Comment: Resu [...] results. Performed By: #### C VFLURV ####[address] [place], [place] [address] PBNPon 08-13-2024 Natriuretic peptide B (Bld) [Mass/Vol] 456 pg/mL High 0-125 [facility] Comment on above: Result Comment: NT-p roBNP results of less than 300 pg/mL effectively rules out acute congestive heart failure with 99% negative predictive value. Performed By: #### A ERIC, GFR, CBC, CMP, PBNP, ADMAURICIO, ELY BOLES ####[address] [place], [place] [address] TROPHSon 08-13-2024 High Sensitivity Troponin I 8 ng/L Normal 0-76 [facility] Comment on above: Result Comment: High Sensitive Troponin I Reference Ranges: Female: 0-51 ng/L Male: 0-76 ng/L Testing performed on [employer] using a homogeneous sandwich chemiluminescent immunoassay based on [employer] technology. Performed By: #### A ERIC, GFR, CBC, CMP, PBNP, ADIFF, ELY BOLES ####[address] [place], [place] [address] XR CHEST 1 VIEWon 08-13-2024 XR CHEST [...] 08/13/2024 11:55:14 AM Ordering Provider: WILNER JOE [facility] .GFRon 05-14-2024 GFR Non- 90 ml/min/1.73sqm [facility] Comment on above: Result Comment: GFR Population [...] G FR, LIPID, A1C, CMP ####[address] [place], [place] [address] GFR 109 ml/min/1.73sqm Normal [facility] Comment on above: Result Comment: GFR [...] #### G FR, LIPID, A1C, CMP ####[address]ry [address] [place], [place] [address] A1Con 05-14-2024 Glucose [Mass/Vol] 120 mg/dL Normal [facility] Comment on above: Result Comment: Zahida mated Average Glucose calculated by equation ((28.7xA1C)-46.7) Estimated average glucose (eAG) is a calculated value from Hemoglobin A1C and is member services representative of the average blood glucose level in the last 2-3 month period. Normal range: less than 114 mg/dL Performed By: #### G FR, LIPID, A1C, CMP ####[place] [address] [place], [place] [address] HbA1c (Bld) [Mass fraction] 5.8 % Normal 4.3-6.4 [facility] Comment on above: Performed By: #### G FR, LIPID, A1C, CMP ####[address] [place], [place] [address] CMPon 05-14-2024 Albumin Level 3.4 G/dL Low 3.5-5.0 [facility] Comment on above: Performed By: #### G FR, LIPID, A1C, CMP ####[address] [place], [place] [address] Albumin/Globulin [Mass ratio] 0.9 {ratio} Low 1.1-2.5 [facility] Comment on above: Performed By: #### G FR, LIPID, A1C, CMP ####[address] [place], [place] [address] ALP [Catalytic activity/Vol] 87 U/L Normal 40-135 [facility] Comment on above: Performed By: #### G FR, LIPID, A1C, CMP ####[address] [place], [place] [address] ALT [Catalytic activity/Vol] 17 U/L Normal 16-63 [facility] Comment on above: Performed By: #### G FR, LIPID, A1C, CMP ####[address] [place], [place] [address] AST [Catalytic activity/Vol] 12 U/L Normal 10-40 [facility] Comment on above: Performed By: #### G FR, LIPID, A1C, CMP ####[address] [place], [place] [address] Bili Total 0.3 mg/dL Normal 0.2-1.0 [facility] Comment on above: Result Comment: Use of this assay is not recommended for patients undergoing treatment with eltrombopag due to the potential for falsely elevated results. Performed By: #### G FR, LIPID, A1C, CMP ####[address] [place], [place] [address] BUN/Creatinine Ratio 15 ratio Normal 7-27 [facility] Comment on above: Performed By: #### G FR, LIPID, A1C, CMP ####[address] [place], [place] [address] Calcium [Mass/Vol] 8.9 mg/dL Normal 8.4-10.2 [facility] Comment on above: Performed By: #### G FR, LIPID, A1C, CMP ####[address] [place], [place] [address] Chloride [Moles/Vol] 101 mmol/L Normal 98-107 [facility] Comment on above: Performed By: #### G FR, LIPID, A1C, CMP ####[address] [place], [place] [address] CO2 [Moles/Vol] 34 mmol/L High 22-29 [facility] Comment on above: Performed By: #### G FR, LIPID, A1C, CMP ####[address] [place], [place] [address] Creatinine [Mass/Vol] 0.89 mg/dL Normal 0.70-1.30 [facility] Comment on above: Result Comment: Test ing performed on Siemens Dimension EXL analyzer using a modified kinetic Ciera technique. Performed By: #### G FR, LIPID, A1C, CMP ####[address] [place], [place] [address] Electrolyte Balance 5.0 mEq/L Normal 4.0-15.0 [facility] Comment on above: Performed By: #### G FR, LIPID, A1C, CMP ####[address] [place], [place] [address] Globulin 3.8 G/dL Normal [facility] Comment on above: Performed By: #### G FR, LIPID, A1C, CMP ####[address] [place], [place] [address] Glucose [Mass/Vol] 99 mg/dL Normal 70-105 [facility] Comment on above: Performed By: #### Abbey FR, LIPID, A1C, CMP ####[address] [place], [place] [address] Potassium [Moles/Vol] 4.0 mmol/L Normal 3.5-5.1 [facility] Comment on above: Performed By: #### Abbey FR, LIPID, A1C, CMP ####[address] [place], [place] [address] Sodium [Moles/Vol] 140 mmol/L Normal 136-145 [facility] Comment on above: Performed By: #### G FR, LIPID, A1C, CMP ####[address] [place], [place] [address] Total Protein 7.2 G/dL Normal 6.4-8.2 [facility] Comment on above: Performed By: #### G FR, LIPID, A1C, CMP ####[address] [place], [place] [address] Urea nitrogen [Mass/Vol] 13 mg/dL Normal 7-18 [facility] Comment on above: Performed By: #### G FR, LIPID, A1C, CMP ####Larry [address] [place], [place] [address] LABORATORYOrdered By: SYSTEM SYSTEM on 05-14-2024 Albumin [...] calculated value from Hemoglobin A1C and is member services representative of the average blood glucose level [...] 05-14-2024 Cholesterol [Mass/Vol] 144 mg/dL Normal 0-200 [facility] Comment on above: Result Comment: Chol esterol Reference Interval: Less than 200 Desirable 200-239 Borderline high risk 240 and above High risk Performed By: #### G FR, LIPID, A1C, CMP ####[address] [place], [place] [address] Cholesterol in HDL [Mass/Vol] 24 mg/dL Low 40-60 [facility] Comment on above: Performed By: #### G FR, LIPID, A1C, CMP ####[address] [place], [place] [address] Cholesterol in LDL [Mass/Vol] 72 mg/dL Normal 0-130 [facility] Comment on above: Performed By: #### G FR, LIPID, A1C, CMP ####[address] [place], [place] [address] Triglyceride [Mass/Vol] 242 mg/dL High 0-150 [facility] Comment on above: Result Comment: Trig lyceride Reference Interval: Less than 150 Normal 150-199 Borderline high risk 200-499 High risk 500 or higher Very high risk Performed By: #### G FR, LIPID, A1C, CMP ####[facility] [place], [place] [address] Final Surgical Pathology Rep ezequiel 03-27-2024 Final Surgical Pathology Report . Pathology Reports Accession: Collected Date/Time: Received Date/Time: Pathologist: [id number] 03/25/2024 15:47 EDT 03/26/2024 07:38 EDT COREY WILBURN MD Final Surgical Pathology Report DIAGNOSIS: RIGHT ARM EXCISION: - GLOMANGIOMYOMA CLINICAL INFORMATION: SKIN LESION Procedure: EXCISION Preoperative diagnosis: SKIN LESION Postoperative diagnosis: SKIN LESION SPECIMEN: A RIGHT ARM GROSS DESCRIPTION: All parts labelled with patient name and [id number] Received in formalin labelled right arm excision Is a unoriented ellipse of skin measuring 1.5 x 0.4 and excised to depth of 1.2 cm. Excision margin inked black. Skin surface grossly unremarkable, located within the underlying soft tissue is a santillan firm well-circumscribed possible mass/lymph node measuring 0.6 x 0.6 x 0.6 cm. TS-2 Austin Somers, Pathologists' Professor Of Fine Art (ASCP) Performed by [facility] MICROSCOPIC DESCRIPTION: The microscopic examination is performed, except in the case of Gross Only. Electronically Signed by Pathology Report verified by [facility] COREY WILBURN Sign out Date: 03/27/2024 16:10 Performing Lab: [facility], [address] [place] [address] Pathology Dept Disclaimer If ancillary studies were utilized, the following Laboratory Developed Test (LDT) disclaimer will apply: Under CLIA requirements, [facility] is qualified to perform high complexity testing. For all ancillary stains, positive and negative controls stain appropriately. Performance characteristics of immunohistochemical and chromogenic in-situ hybridization tests have been determined by [facility]. These tests are used for clinical purposes, They should not be regarded as investigational or for research. Normal [facility] US SOFT TISSUE MASS OF RT [...] 11:09:23 AM Ordering Provider: ISADORA CORREA Normal [facility] TSHon 02-15-2024 TSH Qn 1.65 m[IU]/L Normal 0.36-3.74 [facility] Comment on above: Performed By: #### T ####[facility] [place], [place] [address] .GFRon 02-12-2024 GFR 95 ml/min/1.73sqm Normal [facility] Comment on above: Result Comment: GFR [...] P SA, CMP, GFR, LIPID, A1C #### [address] [address] GFR Non- 78 ml/min/1.73sqm Normal [facility] Comment on above: Result Comment: GFR [...] P SA, CMP, GFR, LIPID, A1C #### [address] [address] A1Con 02-12-2024 Glucose [Mass/Vol] 131 mg/dL Normal [facility] Comment on above: Result Comment: Zahida mated Average Glucose calculated by equation ((28.7xA1C)-46.7) Estimated average glucose (eAG) is a calculated value from Hemoglobin A1C and is member services representative of the average blood glucose level in the last 2-3 month period. Normal range: less than 114 mg/dL Performed By: #### P SA, CMP, GFR, LIPID, A1C #### [address] [address] HbA1c (Bld) [Mass fraction] 6.2 % Normal 4.3-6.4 [facility] Comment on above: Performed By: #### P SA, CMP, GFR, LIPID, A1C #### [address] [address] CMPon 02-12-2024 Albumin Level 3.3 G/dL Low 3.5-5.0 [facility] Comment on above: Performed By: #### P SA, CMP, GFR, LIPID, A1C #### [address] [address] Albumin/Globulin [Mass ratio] 0.9 {ratio} Low 1.1-2.5 [facility] Comment on above: Performed By: #### P SA, CMP, GFR, LIPID, A1C #### [address] [address] ALP [Catalytic activity/Vol] 74 U/L Normal 40-135 [facility] Comment on above: Performed By: #### P SA, CMP, GFR, LIPID, A1C #### [address] [address] ALT [Catalytic activity/Vol] 20 U/L Normal 16-63 [facility] Comment on above: Performed By: #### P SA, CMP, GFR, LIPID, A1C #### [address] [address] AST [Catalytic activity/Vol] 13 U/L Normal 10-40 [facility] Comment on above: Performed By: #### P SA, CMP, GFR, LIPID, A1C #### [address] [address] Bili Total 0.5 mg/dL Normal 0.2-1.0 [facility] Comment on above: Result Comment: Use of this assay is not recommended for patients undergoing treatment with eltrombopag due to the potential for falsely elevated results. Performed By: #### P SA, CMP, GFR, LIPID, A1C #### [address] [address] BUN/Creatinine Ratio 6 ratio Low 7-27 [facility] Comment on above: Performed By: #### P SA, CMP, GFR, LIPID, A1C #### [address] [address] Calcium [Mass/Vol] 8.5 mg/dL Normal 8.4-10.2 [facility] Comment on above: Performed By: #### P SA, CMP, GFR, LIPID, A1C #### [address] [address] Chloride [Moles/Vol] 100 mmol/L Normal 98-107 [facility] Comment on above: Performed By: #### P SA, CMP, GFR, LIPID, A1C #### [address] [address] CO2 [Moles/Vol] 34 mmol/L High 22-29 [facility] Comment on above: Performed By: #### P SA, CMP, GFR, LIPID, A1C #### [place] [id number] Creatinine [Mass/Vol] 1.00 mg/dL Normal 0.70-1.30 [facility] Comment on above: Result Comment: Test ing performed on Siemens Dimension EXL analyzer using a modified kinetic Ciera technique. Performed By: #### P SA, CMP, GFR, LIPID, A1C #### [address] [address] Electrolyte Balance 4.0 mEq/L Normal 4.0-15.0 [facility] Comment on above: Performed By: #### P SA, CMP, GFR, LIPID, A1C #### [address] [address] Globulin 3.8 G/dL Normal [facility] Comment on above: Performed By: #### P SA, CMP, GFR, LIPID, A1C #### [address] [address] Glucose [Mass/Vol] 80 mg/dL Normal 70-105 [facility] Comment on above: Performed By: #### P SA, CMP, GFR, LIPID, A1C #### [address] [address] Potassium [Moles/Vol] 4.3 mmol/L Normal 3.5-5.1 [facility] Comment on above: Performed By: #### P SA, CMP, GFR, LIPID, A1C #### [address] [address] Sodium [Moles/Vol] 138 mmol/L Normal 136-145 [facility] Comment on above: Performed By: #### P SA, CMP, GFR, LIPID, A1C #### [place] [address] [place], [place] [address] Total Protein 7.1 G/dL Normal 6.4-8.2 [facility] Comment on above: Performed By: #### P SA, CMP, GFR, LIPID, A1C #### [facility] [address] [place], [place] [address] Urea nitrogen [Mass/Vol] 6 mg/dL Low 7-18 [facility] Comment on above: Performed By: #### P SA, CMP, GFR, LIPID, A1C #### [facility] [address] [place], [place] [address] LABORATORYOrdered By: SYSTEM SYSTEM on 02-12-2024 Albumin [...] calculated value from Hemoglobin A1C and is member services representative of the average blood glucose level [...] 02-12-2024 Cholesterol [Mass/Vol] 117 mg/dL Normal 0-200 [facility] Comment on above: Result Comment: Chol esterol Reference Interval: Less than 200 Desirable 200-239 Borderline high risk 240 and above High risk Performed By: #### P SA, CMP, GFR, LIPID, A1C #### [place] [address] [place], [place] [address] Cholesterol in HDL [Mass/Vol] 25 mg/dL Low 40-60 [facility] Comment on above: Performed By: #### P SA, CMP, GFR, LIPID, A1C #### [place] [address] [place], [place] [address] Cholesterol in LDL [Mass/Vol] 53 mg/dL Normal 0-130 [facility] Comment on above: Performed By: #### P SA, CMP, GFR, LIPID, A1C #### [address] [address] Triglyceride [Mass/Vol] 196 mg/dL High 0-150 [facility] Comment on above: Result Comment: Trig lyceride Reference Interval: Less than 150 Normal 150-199 Borderline high risk 200-499 High risk 500 or higher Very high risk Performed By: #### P SA, CMP, GFR, LIPID, A1C #### [address] [address] PSAon 02-12-2024 Prostate Specific Antigen 0.25 ng/mL Normal 0.00-4.00 [facility] Comment on above: Performed By: #### P SA, CMP, GFR, LIPID, A1C #### [address] [address] .Auto Diffon 02-01-2024 Basophil, Absolute 0.1 10 3/mcL Normal 0.0-0.3 [facility] ([place]) Comment on above: Performed By: #### A DIFF, TROPHS, GFR, BMP, MDW, CBC, PBNP, ANEU #### [address] [address] Basophils/100 WBC (Bld) 0.8 % Normal 0.0-2.5 [facility] ([place] Comment on above: Performed By: #### A DIFF, TROPHS, GFR, BMP, MDW, CBC, PBNP, ANEU #### [address] [address] Eosinophil, Absolute 0.1 10 3/mcL Normal 0.0-0.7 [facility] ([place]) Comment on above: Performed By: #### A DIFF, TROPHS, GFR, BMP, MDW, CBC, PBNP, ANEU #### [address] [address] Eosinophils/100 WBC (Bld) 1.2 % Normal 0.0-6.0 [facility] ([place] Comment on above: Performed By: #### A DIFF, TROPHS, GFR, BMP, MDW, CBC, PBNP, ANEU #### [address] [address] Lymphocyte, Absolute 1.4 10 3/mcL Normal 0.9-4.3 [facility] ([place] Comment on above: Performed By: #### A DIFF, TROPHS, GFR, BMP, MDW, CBC, PBNP, ANEU #### [address] [address] Lymphocytes/100 WBC (Bld) 19.9 % Low 20.0-40.0 [facility] ([place] Comment on above: Performed By: #### A DIFF, TROPHS, GFR, BMP, MDW, CBC, PBNP, ANEU #### [address] [address] Monocyte, Absolute 0.7 10 3/mcL Normal 0.1-1.4 [facility] ([place] Comment on above: Performed By: #### A DIFF, TROPHS, GFR, BMP, MDW, CBC, PBNP, ANEU #### [address] [address] Monocytes/100 WBC (Bld) 9.4 % Normal 2.0-13.0 [facility] ([place] Comment on above: Performed By: #### A DIFF, TROPHS, GFR, BMP, MDW, CBC, PBNP, ANEU #### [address] [address] Neutrophils/100 WBC (Bld) 68.7 % Normal 50.0-75.0 [facility] [place] Comment on above: Performed By: #### A DIFF, TROPHS, GFR, BMP, MDW, CBC, PBNP, ANEU #### [address] [address] .GFRon 02-01-2024 GFR >60 Normal [facility] ([place] Comment on above: Result Comment: GFR Population [...] GFR, BMP, MDW, CBC, PBNP, ANEU #### [address] [address] GFR Non- >60 Normal [facility] ([place] Comment on above: Result Comment: GFR Population [...] GFR, BMP, MDW, CBC, PBNP, ANEU #### [address] [address] .NEUABSon 02-01-2024 Neutrophil, Absolute 4.8 10 3/mcL Normal 2.3-8.1 [facility] ([place] Comment on above: Performed By: #### A DIFF, TROPHS, GFR, BMP, MDW, CBC, PBNP, ANEU #### [address] [address] APTTon 02-01-2024 aPTT Coag (Bld) [Time] 47.1 s High 25.0-35.0 [facility] [place] Comment on above: Result Comment: For Heparin anticoagulation therapy, the recommended therapeutic range is: 54-77 seconds (APTT Correlation with Anti-Xa therapeutic range of 0.3-0.7 units/ml). PLEASE REFERENCE THE PHARMACY PROTOCOL FOR DOSING. Performed By: #### A DIFF, TROPHS, GFR, BMP, MDW, CBC, PBNP, ANEU #### [address] [address] aPTT Coag (Bld) [Time] 46.1 s High 25.0-35.0 [facility] ([place] Comment on above: Result Comment: For Heparin anticoagulation therapy, the recommended therapeutic range is: 54-77 seconds (APTT Correlation with Anti-Xa therapeutic range of 0.3-0.7 units/ml). PLEASE REFERENCE THE PHARMACY PROTOCOL FOR DOSING. Performed By: #### A DIFF, TROPHS, GFR, BMP, MDW, CBC, PBNP, ANEU #### [address] [address] BMPon 02-01-2024 BUN/Creatinine Ratio 14.8 ratio Normal 10.0-22.0 [facility] ([place] Comment on above: Performed By: #### A DIFF, TROPHS, GFR, BMP, MDW, CBC, PBNP, ANEU #### [address] [address] Calcium [Mass/Vol] 8.8 mg/dL Normal 8.7-10.4 [facility] ([place]) Comment on above: Performed By: #### A DIFF, TROPHS, GFR, BMP, MDW, CBC, PBNP, ANEU #### [address] [address] Chloride [Moles/Vol] 100 mmol/L Normal 98-110 [facility] ([place] Comment on above: Performed By: #### A DIFF, TROPHS, GFR, BMP, MDW, CBC, PBNP, ANEU #### [address] [address] CO2 [Moles/Vol] 32 mmol/L Normal 22-32 [facility] ([place] Comment on above: Performed By: #### A DIFF, TROPHS, GFR, BMP, MDW, CBC, PBNP, ANEU #### [address] [address] Creatinine [Mass/Vol] 1.15 mg/dL Normal 0.60-1.40 [facility] ([place]) Comment on above: Result Comment: Test ing performed on ChaoWIFI analyzer using enzymatic creatinine methodology. Performed By: #### A DIFF, TROPHS, GFR, BMP, MDW, CBC, PBNP, ANEU #### [address] [address] Electrolyte Balance 5.0 mEq/L Normal 4.0-15.0 [facility] ([place]) Comment on above: Performed By: #### A DIFF, TROPHS, GFR, BMP, MDW, CBC, PBNP, ANEU #### [address] [address] Glucose [Mass/Vol] 124 mg/dL High 70-110 [facility] ([place] Comment on above: Performed By: #### A DIFF, TROPHS, GFR, BMP, MDW, CBC, PBNP, ANEU #### [address] [address] Potassium [Moles/Vol] 3.4 mmol/L Low 3.5-5.0 [facility] ([place]) Comment on above: Performed By: #### A DIFF, TROPHS, GFR, BMP, MDW, CBC, PBNP, ANEU #### [address] [address] Sodium [Moles/Vol] 137 mmol/L Normal 136-145 [facility] ([place] Comment on above: Performed By: #### A DIFF, TROPHS, GFR, BMP, MDW, CBC, PBNP, ANEU #### [address] [address] Urea nitrogen [Mass/Vol] 17.0 mg/dL Normal 8.0-22.0 [facility] ([place] Comment on above: Performed By: #### A DIFF, TROPHS, GFR, BMP, MDW, CBC, PBNP, ANEU #### [address] [place] [address] CBCon 02-01-2024 Erythrocyte distribution width (RBC) [Ratio] 16.2 % High 11.5-15.5 [facility] ([place] Comment on above: Performed By: #### A DIFF, TROPHS, GFR, BMP, MDW, CBC, PBNP, ANEU #### [address] [address] Hematocrit (Bld) [Volume fraction] 40.5 % Normal 40.0-52.0 [facility] ([place] Comment on above: Performed By: #### A DIFF, TROPHS, GFR, BMP, MDW, CBC, PBNP, ANEU #### [place] [address] Hgb 13.0 G/dL Normal 13.0-17.5 [facility] ([place] Comment on above: Performed By: #### A DIFF, TROPHS, GFR, BMP, MDW, CBC, PBNP, ANEU #### [place] [address]67 MCH (RBC) [Entitic mass] 26.0 pg Low 27.0-33.0 [facility] ([place] Comment on above: Performed By: #### A DIFF, TROPHS, GFR, BMP, MDW, CBC, PBNP, ANEU #### [address] [address] MCHC 32.2 G/dL Normal 32.0-36.0 [facility] ([place] Comment on above: Performed By: #### A DIFF, TROPHS, GFR, BMP, MDW, CBC, PBNP, ANEU #### [address] [address] MCV (RBC) [Entitic vol] 80.6 fL Low 81.0-100.0 [facility] ([place] Comment on above: Performed By: #### A DIFF, TROPHS, GFR, BMP, MDW, CBC, PBNP, ANEU #### [place] [id number] Platelet 161 10 3/mcL Normal 150-450 [facility] ([place] Comment on above: Performed By: #### A DIFF, TROPHS, GFR, BMP, MDW, CBC, PBNP, ANEU #### [address] [address] Platelet mean volume (Bld) [Entitic vol] 6.8 fL Normal 6.4-10.5 [facility] ([place] Comment on above: Performed By: #### A DIFF, TROPHS, GFR, BMP, MDW, CBC, PBNP, ANEU #### [address] [address] RBC 5.02 10 6/mcL Normal 4.50-6.00 [facility] ([place] Comment on above: Performed By: #### A DIFF, TROPHS, GFR, BMP, MDW, CBC, PBNP, ANEU #### [address] [address] WBC 6.9 10 3/mcL Normal 4.5-10.8 [facility] ([place] Comment on above: Performed By: #### A DIFF, TROPHS, GFR, BMP, MDW, CBC, PBNP, ANEU #### [address] [address] LABORATORYOrdered By: SYSTEM SYSTEM on 02-01-2024 aPTT [...] above: Interpretive Data: T esting performed on ChaoWIFI analyzer using enzymatic creatinine methodology. Electrolyte Balance [...] 02-01-2024 Magnesium [Mass/Vol] 2.2 mg/dL Normal 1.6-2.4 [facility] ([place] Comment on above: Performed By: #### A DIFF, TROPHS, GFR, BMP, MDW, CBC, PBNP, ANEU #### [address] [address] .Auto Diffon 01-31-2024 Basophil, Absolute 0.1 10 3/mcL Normal 0.0-0.3 [facility] ([place] Comment on above: Performed By: #### A DIFF, TROPHS, GFR, BMP, MDW, CBC, PBNP, ANEU #### [address] [address] Basophils/100 WBC (Bld) 1.0 % Normal 0.0-2.5 [facility] ([place] Comment on above: Performed By: #### A DIFF, TROPHS, GFR, BMP, MDW, CBC, PBNP, ANEU #### [address] [address] Eosinophil, Absolute 0.1 10 3/mcL Normal 0.0-0.7 [facility] ([place] Comment on above: Performed By: #### A DIFF, TROPHS, GFR, BMP, MDW, CBC, PBNP, ANEU #### [address] [address] Eosinophils/100 WBC (Bld) 1.1 % Normal 0.0-6.0 [facility] ([place] Comment on above: Performed By: #### A DIFF, TROPHS, GFR, BMP, MDW, CBC, PBNP, ANEU #### [address] [address] Lymphocyte, Absolute 3.0 10 3/mcL Normal 0.9-4.3 [facility] ([place]) Comment on above: Performed By: #### A DIFF, TROPHS, GFR, BMP, MDW, CBC, PBNP, ANEU #### [address] [address] Lymphocytes/100 WBC (Bld) 22.7 % Normal 20.0-40.0 [facility] [place] Comment on above: Performed By: #### A DIFF, TROPHS, GFR, BMP, MDW, CBC, PBNP, ANEU #### [address] [address] Monocyte, Absolute 1.4 10 3/mcL Normal 0.1-1.4 [facility] ([place] Comment on above: Performed By: #### A DIFF, TROPHS, GFR, BMP, MDW, CBC, PBNP, ANEU #### [address] [address] Monocytes/100 WBC (Bld) 11.0 % Normal 2.0-13.0 [facility] ([place] Comment on above: Performed By: #### A DIFF, TROPHS, GFR, BMP, MDW, CBC, PBNP, ANEU #### [address] [address] Neutrophils/100 WBC (Bld) 64.2 % Normal 50.0-75.0 [facility] ([place]) Comment on above: Performed By: #### A DIFF, TROPHS, GFR, BMP, MDW, CBC, PBNP, ANEU #### [address] [address] .GFRon 09-04-2024 GFR 46 ml/min/1.73sqm Normal [facility] ([place] Comment on above: Result Comment: GFR Population [...] GFR, BMP, MDW, CBC, PBNP, ANEU #### [address] [address] GFR Non- 38 ml/min/1.73sqm Normal [facility] ([place] Comment on above: Result Comment: GFR Population [...] GFR, BMP, MDW, CBC, PBNP, ANEU #### [address] [address] .NEUABSon 01-31-2024 Neutrophil, Absolute 8.5 10 3/mcL High 2.3-8.1 [facility] ([place] Comment on above: Performed By: #### A DIFF, TROPHS, GFR, BMP, MDW, CBC, PBNP, ANEU #### [address] [address] APTTon 01-31-2024 aPTT Coag (Bld) [Time] 34.5 s Normal 25.0-35.0 [facility] [place] Comment on above: Result Comment: For Heparin anticoagulation therapy, the recommended therapeutic range is: 54-77 seconds (APTT Correlation with Anti-Xa therapeutic range of 0.3-0.7 units/ml). PLEASE REFERENCE THE PHARMACY PROTOCOL FOR DOSING. Performed By: #### A DIFF, TROPHS, GFR, BMP, MDW, CBC, PBNP, ANEU #### [address] [address] aPTT Coag (Bld) [Time] 33.9 s Normal 25.0-35.0 [facility] ([place] Comment on above: Result Comment: For Heparin anticoagulation therapy, the recommended therapeutic range is: 54-77 seconds (APTT Correlation with Anti-Xa therapeutic range of 0.3-0.7 units/ml). PLEASE REFERENCE THE PHARMACY PROTOCOL FOR DOSING. Performed By: #### A DIFF, TROPHS, GFR, BMP, MDW, CBC, PBNP, ANEU #### [address] [address] aPTT Coag (Bld) [Time] 26.2 s Normal 25.0-35.0 [facility] [place] Comment on above: Result Comment: For Heparin anticoagulation therapy, the recommended therapeutic range is: 54-77 seconds (APTT Correlation with Anti-Xa therapeutic range of 0.3-0.7 units/ml). PLEASE REFERENCE THE PHARMACY PROTOCOL FOR DOSING. Performed By: #### A DIFF, TROPHS, GFR, BMP, MDW, CBC, PBNP, ANEU #### [address] [address] CAIONon 01-31-2024 Calcium Ionized 1.07 mmol/L Low 1.12-1.32 [facility] ([place] Comment on above: Performed By: #### T ROPHS, CMP, CAION, LAC, CBC, ADIFF, GFR, PHOS, MG, ANEU #### [place] [id number] [place] [address] CBCon 01-31-2024 Erythrocyte distribution width (RBC) [Ratio] 16.3 % High 11.5-15.5 [facility] ([place] Comment on above: Performed By: #### A DIFF, TROPHS, GFR, BMP, MDW, CBC, PBNP, ANEU #### [address] [address] Hematocrit (Bld) [Volume fraction] 42.8 % Normal 40.0-52.0 [facility] ([place] Comment on above: Performed By: #### A DIFF, TROPHS, GFR, BMP, MDW, CBC, PBNP, ANEU #### [address] [address] Hgb 14.0 G/dL Normal 13.0-17.5 [facility] ([place] Comment on above: Performed By: #### A DIFF, TROPHS, GFR, BMP, MDW, CBC, PBNP, ANEU #### [address] [address] MCH (RBC) [Entitic mass] 25.9 pg Low 27.0-33.0 [facility] ([place] Comment on above: Performed By: #### A DIFF, TROPHS, GFR, BMP, MDW, CBC, PBNP, ANEU #### [address] [address] MCHC 32.6 G/dL Normal 32.0-36.0 [facility] ([place] Comment on above: Performed By: #### A DIFF, TROPHS, GFR, BMP, MDW, CBC, PBNP, ANEU #### [address] [address] MCV (RBC) [Entitic vol] 79.5 fL Low 81.0-100.0 [facility] ([place] Comment on above: Performed By: #### A DIFF, TROPHS, GFR, BMP, MDW, CBC, PBNP, ANEU #### [address] [place] [address] Platelet 270 10 3/mcL Normal 150-450 [facility] ([place] Comment on above: Performed By: #### A DIFF, TROPHS, GFR, BMP, MDW, CBC, PBNP, ANEU #### [address] [address] Platelet mean volume (Bld) [Entitic vol] 7.0 fL Normal 6.4-10.5 [facility] ([place] Comment on above: Performed By: #### A DIFF, TROPHS, GFR, BMP, MDW, CBC, PBNP, ANEU #### [address] [address] RBC 5.39 10 6/mcL Normal 4.50-6.00 [facility] ([place] Comment on above: Performed By: #### A DIFF, TROPHS, GFR, BMP, MDW, CBC, PBNP, ANEU #### [address] [address] WBC 13.2 10 3/mcL High 4.5-10.8 [facility] ([place] Comment on above: Performed By: #### A DIFF, TROPHS, GFR, BMP, MDW, CBC, PBNP, ANEU #### [address] [address] CMPon 01-31-2024 Albumin Level 3.0 G/dL Low 3.2-4.8 [facility] ([place] Comment on above: Performed By: #### A DIFF, TROPHS, GFR, BMP, MDW, CBC, PBNP, ANEU #### [address] [address] Albumin/Globulin [Mass ratio] 0.8 {ratio} Low 0.9-1.6 [facility] ([place] Comment on above: Performed By: #### A DIFF, TROPHS, GFR, BMP, MDW, CBC, PBNP, ANEU #### [address] [address] ALP [Catalytic activity/Vol] 77 U/L Normal 38-126 [facility] ([place] Comment on above: Performed By: #### A DIFF, TROPHS, GFR, BMP, MDW, CBC, PBNP, ANEU #### [address] [address] ALT/SGPT <8 Low 12-55 [facility] [place] Comment on above: Performed By: #### A DIFF, TROPHS, GFR, BMP, MDW, CBC, PBNP, ANEU #### [place] [id number] AST [Catalytic activity/Vol] 12 U/L Normal 8-34 [facility] ([place] Comment on above: Performed By: #### A DIFF, TROPHS, GFR, BMP, MDW, CBC, PBNP, ANEU #### [address] [address] Bili Total 0.40 mg/dL Normal 0.20-1.20 [facility] ([place] Comment on above: Result Comment: Use of this assay is not recommended for patients undergoing treatment with eltrombopag due to the potential for falsely elevated results. Performed By: #### A DIFF, TROPHS, GFR, BMP, MDW, CBC, PBNP, ANEU #### [address] [address] BUN/Creatinine Ratio 11.2 ratio Normal 10.0-22.0 [facility] ([place] Comment on above: Performed By: #### A DIFF, TROPHS, GFR, BMP, MDW, CBC, PBNP, ANEU #### [address] [address] Calcium [Mass/Vol] 8.8 mg/dL Normal 8.7-10.4 [facility] ([place] Comment on above: Performed By: #### A DIFF, TROPHS, GFR, BMP, MDW, CBC, PBNP, ANEU #### [address] [address] Chloride [Moles/Vol] 100 mmol/L Normal 98-110 [facility] ([place] Comment on above: Performed By: #### A DIFF, TROPHS, GFR, BMP, MDW, CBC, PBNP, ANEU #### [address] [address] CO2 [Moles/Vol] 29 mmol/L Normal 22-32 [facility] ([place] Comment on above: Performed By: #### A DIFF, TROPHS, GFR, BMP, MDW, CBC, PBNP, ANEU #### [address] [address] Creatinine [Mass/Vol] 1.87 mg/dL High 0.60-1.40 [facility] ([place]) Comment on above: Result Comment: Test ing performed on ChaoWIFI analyzer using enzymatic creatinine methodology. Performed By: #### A DIFF, TROPHS, GFR, BMP, MDW, CBC, PBNP, ANEU #### [address] [address] Electrolyte Balance 8.0 mEq/L Normal 4.0-15.0 [facility] ([place] Comment on above: Performed By: #### A DIFF, TROPHS, GFR, BMP, MDW, CBC, PBNP, ANEU #### [address] [address] Globulin 3.7 G/dL Normal 1.5-3.8 [facility] ([place] Comment on above: Performed By: #### A DIFF, TROPHS, GFR, BMP, MDW, CBC, PBNP, ANEU #### [address] [address] Glucose [Mass/Vol] 133 mg/dL High 70-110 [facility] ([place] Comment on above: Performed By: #### A DIFF, TROPHS, GFR, BMP, MDW, CBC, PBNP, ANEU #### [address] [address] Potassium [Moles/Vol] 3.6 mmol/L Normal 3.5-5.0 [facility] ([place]) Comment on above: Performed By: #### A DIFF, TROPHS, GFR, BMP, MDW, CBC, PBNP, ANEU #### [address] [address] Sodium [Moles/Vol] 137 mmol/L Normal 136-145 [facility] ([place] Comment on above: Performed By: #### A DIFF, TROPHS, GFR, BMP, MDW, CBC, PBNP, ANEU #### [address] [address] Total Protein 6.7 G/dL Normal 5.7-8.2 [facility] ([place] Comment on above: Result Comment: No te - New Reference Range in effect 19 Performed By: #### A DIFF, TROPHS, GFR, BMP, MDW, CBC, PBNP, ANEU #### [address] [address] Urea nitrogen [Mass/Vol] 21.0 mg/dL Normal 8.0-22.0 [facility] ([place] Comment on above: Performed By: #### A DIFF, TROPHS, GFR, BMP, MDW, CBC, PBNP, ANEU #### [address] [address] CVFLURVon 01-31-2024 FLU A PCR Negative Normal Negative [facility] ([place] Comment on above: Result Comment: Note s [id number] Performed By: #### A DIFF, TROPHS, GFR, BMP, MDW, CBC, PBNP, ANEU #### [address] [address] FLU B PCR Negative Normal Negative [facility] ([place] Comment on above: Result Comment: Note s [id number] Performed By: #### A DIFF, TROPHS, GFR, BMP, MDW, CBC, PBNP, ANEU #### [address] [address] RSV PCR Negative Normal Negative [facility] ([place] Comment on above: Result Comment: Note s [phone] Performed By: #### A DIFF, TROPHS, GFR, BMP, MDW, CBC, PBNP, ANEU #### [address] [address] SARS-CoV-2 (COVID-19) RNA ROSE+probe Ql (Unsp spec) Negative Normal Negative [facility] ([place] Comment on above: Result Comment: Note s [id number] This test has been authorized by FDA [...] DIFF, TROPHS, GFR, BMP, MDW, CBC, PBNP, [facility] #### [place] [address] LABORATORYOrdered By: SYSTEM SYSTEM on 01-31-2024 aPTT [...] above: Interpretive Data: T esting performed on ChaoWIFI analyzer using enzymatic creatinine methodology. Electrolyte Balance [...] s High 9.0 - 1 4.4 seconds [facility] Comment on above: Interpretive Data: E ffective 12/11/07, Protime results may be affected by some antibiotics (i.e. Ciprofloxacin, Azithromycin, Bactrim) which may potentiate the action of oral anticoagulants, with further increases in Protime/INR. PT International Ratio 1.3 ratio Invalid Interpretation Code [employer]o[facility] Comment on above: Interpretive Data: Baljinder linn [employer] (CHEST, 1992, [id number]) [...] ng/L Male: 0-54 ng/L Testing performed on [employer] analyzer using direct chemiluminescent technology. Urea nitrogen [Mass/Vol] 21.0 mg/dL Normal 8.0 - 22.0 mg/dL ADM SS Urea nitrogen/Creatinine [Mass ratio] 11.2 ratio Normal 10.0 - 22.0 ratio ADM SS WBC (Bld) [#/Vol] 13.2 103/mcL High 4.5 - 10.8 10^3/mcL Workflow SS LABORATORYOrdered By: Yoanna Coleman on 01-31-2024 Blood Glucose Testing Reason Routine (01/31/24 7:30 AM) [facility] Glucose [Mass/Vol] 146 mg/dL High 70 - 110 mg/dL [facility] LABORATORYOrdered By: Jacqueline Ospina on 01-31-2024 [...] Comment on above: Result Comment: Note s [id number] SARS-CoV-2 (COVID-19) RNA ROSE+probe Ql (Resp) Negative 13, 14 (01/31/24 4:30 AM) Normal Negative [facility] Viro/Sero SS Comment on above: Result Comment: Note s [id number] Interpretive Data: T his test has been [...] 1.07 mmol/L Low 1.12 - 1.32 mmol/L [facility] Comm SS LABORATORYOrdered By: Roshan Galarza on 01-31-2024 Blood Glucose Testing Reason Routine (01/31/24 2:48 AM) [facility] Glucose [Mass/Vol] 153 mg/dL High 70 - 110 mg/dL [facility] LACon 01-31-2024 Lactic Acid Lvl 1.2 mmol/L Normal 0.5-2.2 [facility] ([place]) Comment on above: Result Comment: Spec imen hemolyzed. Results may be affected. Performed By: #### A DIFF, TROPHS, GFR, BMP, MDW, CBC, PBNP, ANEU #### [address] [address] MGon 01-31-2024 Magnesium [Mass/Vol] 1.5 mg/dL Low 1.6-2.4 [facility] ([place]) Comment on above: Performed By: #### A DIFF, TROPHS, GFR, BMP, MDW, CBC, PBNP, ANEU #### [address] [address] No Panel Informationon 01-30 Microscopic examination of blood, culture Culture has been received in lab and is no growth to date. Routine cultures are held for 5 days. [facility] PHOSon 01-31-2024 Phosphate [Mass/Vol] 3.1 mg/dL Normal 2.4-5.1 [facility] ([place]) Comment on above: Result Comment: No te - New Reference Range in effect 19 Performed By: #### A DIFF, TROPHS, GFR, BMP, MDW, CBC, PBNP, ANEU #### [address] [address] PROon 01-31-2024 INR Coag (PPP) [Relative time] 1.3 {INR} Normal [facility] ([place]) Comment on above: Result Comment: The [employer] (CHEST, 1992, 102:[id number]) recommended therapeutic range for oral anticoagulant therapy is: LOW RISK: Prophylaxis of venous thrombosis INR: 2.0-3.0 Treatment of pulmonary embolism 2.0-3.0 Prevention of systemic embolism 2.0-3.0 HIGH RISK: Mechanical prosthetic valves 2.5-3.5 Performed By: #### A DIFF, TROPHS, GFR, BMP, MDW, CBC, PBNP, ANEU #### [address] [address] PT Coag (PPP) [Time] 14.7 s High 9.0-14.4 [facility] ([place]) Comment on above: Result Comment: Effe ctive 12/11/07, Protime results may be affected by some antibiotics (i.e. Ciprofloxacin, Azithromycin, Bactrim) which may potentiate the action of oral anticoagulants, with further increases in Protime/INR. Performed By: #### A DIFF, TROPHS, GFR, BMP, MDW, CBC, PBNP, ANEU #### [address] [address] TROPHSon 01-31-2024 High Sensitivity Troponin I 4 ng/L Normal 0-54 [facility] ([place]) Comment on above: Result Comment: High Sensitive Troponin I Reference Ranges: Female: 0-34 ng/L Male: 0-54 ng/L Testing performed on [employer] analyzer using direct chemiluminescent technology. Performed By: #### A DIFF, TROPHS, GFR, BMP, MDW, CBC, PBNP, ANEU #### [address] [address] .Auto Diffon 01-30-2024 Basophil, Absolute 0.2 10 3/mcL Normal 0.0-0.2 [facility] ([place]) Comment on above: Performed By: #### A DIFF, TROPHS, GFR, BMP, MDW, CBC, PBNP, ANEU #### [address] [address] Basophils/100 WBC (Bld) 1.1 % Normal 0.0-2.5 [facility] ([place]) Comment on above: Performed By: #### A DIFF, TROPHS, GFR, BMP, MDW, CBC, PBNP, ANEU #### [address] [address] Eosinophil, Absolute 0.1 10 3/mcL Normal 0.0-0.4 [facility] ([place]) Comment on above: Performed By: #### A DIFF, TROPHS, GFR, BMP, MDW, CBC, PBNP, ANEU #### [address] [address] Eosinophils/100 WBC (Bld) 0.7 % Normal 0.0-7.0 [facility] ([place]) Comment on above: Performed By: #### A DIFF, TROPHS, GFR, BMP, MDW, CBC, PBNP, ANEU #### [address] [address] Lymphocyte, Absolute 2.8 10 3/mcL Normal 0.8-3.9 [facility] ([place]) Comment on above: Performed By: #### A DIFF, TROPHS, GFR, BMP, MDW, CBC, PBNP, ANEU #### [address] [address] Lymphocytes/100 WBC (Bld) 20.2 % Normal 10.0-50.0 [facility] ([place]) Comment on above: Performed By: #### A DIFF, TROPHS, GFR, BMP, MDW, CBC, PBNP, ANEU #### [address] [address] Monocyte, Absolute 1.7 10 3/mcL High 0.2-1.0 [facility] ([place]) Comment on above: Performed By: #### A DIFF, TROPHS, GFR, BMP, MDW, CBC, PBNP, ANEU #### [address] [address] Monocytes/100 WBC (Bld) 12.2 % Normal 1.7-13.0 [facility] ([place]) Comment on above: Performed By: #### A DIFF, TROPHS, GFR, BMP, MDW, CBC, PBNP, ANEU #### [address] [address] Neutrophils/100 WBC (Bld) 65.8 % Normal 37.0-80.0 [facility] ([place]) Comment on above: Performed By: #### A DIFF, TROPHS, GFR, BMP, MDW, CBC, PBNP, ANEU #### [address] [address] .GFRon 01-30-2024 GFR 38 ml/min/1.73sqm Normal [facility] ([place]) Comment on above: Result Comment: GFR Population [...] GFR, BMP, MDW, CBC, PBNP, ANEU #### [address] [address] GFR Non- 31 ml/min/1.73sqm Normal [facility] ([place]) Comment on above: Result Comment: GFR Population [...] GFR, BMP, MDW, CBC, PBNP, ANEU #### [place] [address]67 .MDWon 01-30-2024 Monocyte Distribution Width 21.35 High 0.00-20.00 [facility] ([place]) Comment on above: Result Comment: For adults in ED, MDW>20.0 may be associated with a higher risk of sepsis during the first 12hrs of hospital admission Performed By: #### A DIFF, TROPHS, GFR, BMP, MDW, CBC, PBNP, ANEU #### [address] [address] .NEUABSon 01-30-2024 Neutrophil, Absolute 9.2 10 3/mcL High 2.9-6.2 [facility] ([place]) Comment on above: Performed By: #### A DIFF, TROPHS, GFR, BMP, MDW, CBC, PBNP, ANEU #### [place] [id number] .Urinalysis Microscopic (AO) on 01-30-2024 UA RBC None Seen Normal None Seen [facility] ([place]) Comment on above: Performed By: #### A DIFF, TROPHS, GFR, BMP, MDW, CBC, PBNP, ANEU #### [address] [address] UA Squam Epithelial None Seen Normal None Seen [facility] ([place]) Comment on above: Performed By: #### A DIFF, TROPHS, GFR, BMP, MDW, CBC, PBNP, ANEU #### [address] [address] UA WBC 0-5 Abnormal None Seen [facility] ([place]) Comment on above: Performed By: #### A DIFF, TROPHS, GFR, BMP, MDW, CBC, PBNP, ANEU #### [address] [address] BGon 01-30-2024 Base excess Calc (Bld) [Moles/Vol] 4.3 mmol/L Normal [facility] ([place]) Comment on above: Performed By: #### A DIFF, TROPHS, GFR, BMP, MDW, CBC, PBNP, ANEU #### [address] [address] CO2 [Moles/Vol] 29.8 mmol/L Normal 22.0-30.0 [facility] ([place]) Comment on above: Performed By: #### A DIFF, TROPHS, GFR, BMP, MDW, CBC, PBNP, ANEU #### [address] [address] HCO3 (Bld) [Moles/Vol] 28.5 mmol/L Normal 21.0-29.0 [facility] ([place]) Comment on above: Performed By: #### A DIFF, TROPHS, GFR, BMP, MDW, CBC, PBNP, ANEU #### [address] [address] Oxygen (Bld) [Partial pressure] 51.0 mm[Hg] Low 74.0-108.0 [facility] ([place]) Comment on above: Performed By: #### A DIFF, TROPHS, GFR, BMP, MDW, CBC, PBNP, ANEU #### [address] [address] Oxygen saturation in Blood 88.8 % Low 92.0-96.0 [facility] ([place]) Comment on above: Performed By: #### A DIFF, TROPHS, GFR, BMP, MDW, CBC, PBNP, ANEU #### [address] [address] pCO2 41.0 mmHg Normal 32.0-46.0 [facility] ([place]) Comment on above: Performed By: #### A DIFF, TROPHS, GFR, BMP, MDW, CBC, PBNP, ANEU #### [address] [address] pH (Bld) 7.460 [pH] Normal 7.380-7.460 [facility] ([place]) Comment on above: Performed By: #### A DIFF, TROPHS, GFR, BMP, MDW, CBC, PBNP, ANEU #### [address] [address] BMPon 01-30-2024 BUN/Creatinine Ratio 8 ratio Normal 7-27 [facility] ([place]) Comment on above: Performed By: #### A DIFF, TROPHS, GFR, BMP, MDW, CBC, PBNP, ANEU #### [address] [address] Calcium [Mass/Vol] 8.8 mg/dL Normal 8.4-10.2 [facility] ([place]) Comment on above: Performed By: #### A DIFF, TROPHS, GFR, BMP, MDW, CBC, PBNP, ANEU #### [address] [address] Chloride [Moles/Vol] 97 mmol/L Low 98-107 [facility] ([place]) Comment on above: Performed By: #### A DIFF, TROPHS, GFR, BMP, MDW, CBC, PBNP, ANEU #### [address] [address] CO2 [Moles/Vol] 31 mmol/L High 22-29 [facility] ([place]) Comment on above: Performed By: #### A DIFF, TROPHS, GFR, BMP, MDW, CBC, PBNP, ANEU #### [address] [address] Creatinine [Mass/Vol] 2.22 mg/dL High 0.70-1.30 [facility] ([place]) Comment on above: Result Comment: Test ing performed on [employer] Dimension EXL analyzer using a modified kinetic Ciera technique. Performed By: #### A DIFF, TROPHS, GFR, BMP, MDW, CBC, PBNP, ANEU #### [address] [address] Electrolyte Balance 6.0 mEq/L Normal 4.0-15.0 [facility] ([place]) Comment on above: Performed By: #### A DIFF, TROPHS, GFR, BMP, MDW, CBC, PBNP, ANEU #### [address] [address] Glucose [Mass/Vol] 112 mg/dL High 70-105 [facility] ([place]) Comment on above: Performed By: #### A DIFF, TROPHS, GFR, BMP, MDW, CBC, PBNP, ANEU #### [address] [address] Potassium [Moles/Vol] 3.7 mmol/L Normal 3.5-5.1 [facility] ([place]) Comment on above: Performed By: #### A DIFF, TROPHS, GFR, BMP, MDW, CBC, PBNP, ANEU #### [address] [address] Sodium [Moles/Vol] 134 mmol/L Low 136-145 [facility] ([place]) Comment on above: Performed By: #### A DIFF, TROPHS, GFR, BMP, MDW, CBC, PBNP, ANEU #### [address] [address] Urea nitrogen [Mass/Vol] 17 mg/dL Normal 7-18 [facility] ([place]) Comment on above: Performed By: #### A DIFF, TROPHS, GFR, BMP, MDW, CBC, PBNP, ANEU #### [address] [address] CBCon 01-30-2024 Erythrocyte distribution width (RBC) [Ratio] 16.5 % High 11.5-14.5 [facility] ([place]) Comment on above: Performed By: #### A DIFF, TROPHS, GFR, BMP, MDW, CBC, PBNP, ANEU #### [address] [address] Hematocrit (Bld) [Volume fraction] 45.3 % Normal 42.0-52.0 [facility] ([place]) Comment on above: Performed By: #### A DIFF, TROPHS, GFR, BMP, MDW, CBC, PBNP, ANEU #### [place] [id number] Hgb 14.9 G/dL Normal 14.0-18.0 [facility] ([place]) Comment on above: Performed By: #### A DIFF, TROPHS, GFR, BMP, MDW, CBC, PBNP, ANEU #### [address] [address] MCH (RBC) [Entitic mass] 26.6 pg Low 27.0-31.2 [facility] ([place]) Comment on above: Performed By: #### A DIFF, TROPHS, GFR, BMP, MDW, CBC, PBNP, ANEU #### [address] [address] MCHC 33.0 G/dL Normal 31.8-35.4 [facility] ([place]) Comment on above: Performed By: #### A DIFF, TROPHS, GFR, BMP, MDW, CBC, PBNP, ANEU #### [address] [address] MCV (RBC) [Entitic vol] 80.7 fL Normal 80.0-94.0 [facility] ([place]) Comment on above: Performed By: #### A DIFF, TROPHS, GFR, BMP, MDW, CBC, PBNP, ANEU #### [address] [address] Platelet 263 10 3/mcL Normal 130-400 [facility] ([place]) Comment on above: Performed By: #### A DIFF, TROPHS, GFR, BMP, MDW, CBC, PBNP, ANEU #### [address] [address] Platelet mean volume (Bld) [Entitic vol] 6.8 fL Low 7.4-10.4 [facility] ([place]) Comment on above: Performed By: #### A DIFF, TROPHS, GFR, BMP, MDW, CBC, PBNP, ANEU #### [place] [address] RBC 5.61 10 6/mcL Normal 4.04-6.13 [facility] ([place]) Comment on above: Performed By: #### A DIFF, TROPHS, GFR, BMP, MDW, CBC, PBNP, ANEU #### [address] [address] WBC 14.0 10 3/mcL High 4.6-10.8 [facility] ([place]) Comment on above: Performed By: #### A DIFF, TROPHS, GFR, BMP, MDW, CBC, PBNP, ANEU #### [address] [address] [address] HEAD OR BRAIN W/O CONTRAS Ton [...] 01/30/2024 10:16:46 PM Ordering Provider: SAMY Kate [facility]) LABORATORYOrdered By: Jil Morales on 01-30-2024 Appearance [...] ng/L Male: 0-76 ng/L Testing performed on [employer] using a homogeneous sandwich chemiluminescent immunoassay based on [employer] technology. Lactate [Moles/Vol] 1.0 mmol/L Normal 0.4 [...] above: Interpretive Data: T esting performed on [employer] EXL analyzer using a modified kinetic Ciera [...] ng/L Male: 0-76 ng/L Testing performed on [employer] using a homogeneous sandwich chemiluminescent immunoassay based on [employer] technology. Urea nitrogen [Mass/Vol] 17 mg/dL Normal [...] Lactic Acid Lvl 1.0 mmol/L Normal 0.4-2.0 [facility] ([place]) Comment on above: Performed By: #### L AC #### [address] [address] No Panel Informationon 01-29 Microscopic examination of blood, culture Culture has been received in lab and is no growth to date. Routine cultures are held for 5 days. [facility] PBNPon 01-30-2024 Natriuretic peptide B (Bld) [Mass/Vol] 1822 pg/mL High 0-125 [facility] ([place]) Comment on above: Result Comment: NT-p roBNP results of less than 300 pg/mL effectively rules out acute congestive heart failure with 99% negative predictive value. Performed By: #### A DIFF, TROPHS, GFR, BMP, MDW, CBC, PBNP, ANEU #### [address] [place] [address] TROPHSon 01-30-2024 High Sensitivity Troponin I 7 ng/L Normal 0-76 [facility] ([place]) Comment on above: Result Comment: High Sensitive Troponin I Reference Ranges: Female: 0-51 ng/L Male: 0-76 ng/L Testing performed on [employer] EXL using a homogeneous sandwich chemiluminescent immunoassay based on [employer] technology. Performed By: #### A DIFF, TROPHS, GFR, BMP, MDW, CBC, PBNP, ANEU #### [address] [address] High Sensitivity Troponin I 8 ng/L Normal 0-76 [facility] ([place]) Comment on above: Result Comment: High Sensitive Troponin I Reference Ranges: Female: 0-51 ng/L Male: 0-76 ng/L Testing performed on [employer] EXL using a homogeneous sandwich chemiluminescent immunoassay based on [employer] technology. Performed By: #### A DIFF, TROPHS, GFR, BMP, MDW, CBC, PBNP, ANEU #### [address] [address] UAon 01-30-2024 Color (U) Yellow Normal [facility] ([place] Comment on above: Performed By: #### A DIFF, TROPHS, GFR, BMP, MDW, CBC, PBNP, ANEU #### [address] [address] Glucose (U) [Mass/Vol] Negative Normal Negative [facility] ([place]) Comment on above: Performed By: #### A DIFF, TROPHS, GFR, BMP, MDW, CBC, PBNP, ANEU #### [address] [address] Ketones Ql (U) Negative Normal Negative [facility] ([place] Comment on above: Performed By: #### A DIFF, TROPHS, GFR, BMP, MDW, CBC, PBNP, ANEU #### [address] [address] UA Appear Clear Normal Clear [facility] ([place] Comment on above: Performed By: #### A DIFF, TROPHS, GFR, BMP, MDW, CBC, PBNP, ANEU #### [address] [address] UA Bili Small Abnormal Negative [facility] ([place] Comment on above: Performed By: #### A DIFF, TROPHS, GFR, BMP, MDW, CBC, PBNP, ANEU #### [address] [address] UA Blood Trace Abnormal Negative [facility] ([place] Comment on above: Performed By: #### A DIFF, TROPHS, GFR, BMP, MDW, CBC, PBNP, ANEU #### [address] [address] UA Leuk Est Trace Abnormal Negative [facility] ([place] Comment on above: Performed By: #### A DIFF, TROPHS, GFR, BMP, MDW, CBC, PBNP, ANEU #### [address] [address] UA Nitrite Negative Normal Negative [facility] ([place] Comment on above: Performed By: #### A DIFF, TROPHS, GFR, BMP, MDW, CBC, PBNP, ANEU #### [address] [address] UA pH 6.0 Normal 5.0 - 8.0 [facility] ([place]) Comment on above: Performed By: #### A DIFF, TROPHS, GFR, BMP, MDW, CBC, PBNP, ANEU #### [address] [address] UA Protein 100 mg/dL Abnormal Negative [facility] ([place] Comment on above: Performed By: #### A DIFF, TROPHS, GFR, BMP, MDW, CBC, PBNP, ANEU #### [address] [address] UA Spec Grav 1.025 Normal 1.015-1.025 [facility] ([place]) Comment on above: Performed By: #### A DIFF, TROPHS, GFR, BMP, MDW, CBC, PBNP, ANEU #### [address] [address] UA Specimen Type Void Normal [facility] ([place] Comment on above: Performed By: #### A DIFF, TROPHS, GFR, BMP, MDW, CBC, PBNP, ANEU #### [place] [address] [place], [place] [address] UA Urobilinogen 1.0 E.U./dL Normal 0.2-1.0 [facility] ([place] Comment on above: Performed By: #### A DIFF, TROPHS, GFR, BMP, MDW, CBC, PBNP, ANEU #### [place] [address] [place], [place] [address] XR CHEST 1 VIEWon 01-30-2024 XR CHEST [...] 9:28:12 PM Ordering Provider: SAMY JONES Normal [facility] ([place]) .GFRon 08-08-2023 GFR Non- 105 ml/min/1.73sqm Normal [facility] ([place]) Comment on above: Result Comment: GFR Population [...] GFR, BMP, MDW, CBC, PBNP, ANEU #### [address] [address] GFR 127 ml/min/1.73sqm Normal [facility] ([place] Comment on above: Result Comment: GFR Population [...] GFR, BMP, MDW, CBC, PBNP, ANEU #### [address] [address] A1Con 08-08-2023 HbA1c (Bld) [Mass fraction] 6.7 % High 4.3-6.4 [facility] ([place]) Comment on above: Performed By: #### A DIFF, TROPHS, GFR, BMP, MDW, CBC, PBNP, ANEU #### [address] [address] CMPon 08-08-2023 Albumin Level 3.4 G/dL Low 3.5-5.0 [facility] ([place] Comment on above: Performed By: #### A DIFF, TROPHS, GFR, BMP, MDW, CBC, PBNP, ANEU #### [address] [address] Albumin/Globulin [Mass ratio] 0.9 {ratio} Low 1.1-2.5 [facility] ([place] Comment on above: Performed By: #### A DIFF, TROPHS, GFR, BMP, MDW, CBC, PBNP, ANEU #### [address] [address] ALP [Catalytic activity/Vol] 87 U/L Normal 40-135 [facility] ([place] Comment on above: Performed By: #### A DIFF, TROPHS, GFR, BMP, MDW, CBC, PBNP, ANEU #### [address] [address] ALT [Catalytic activity/Vol] 19 U/L Normal 16-63 [facility] ([place] Comment on above: Performed By: #### A DIFF, TROPHS, GFR, BMP, MDW, CBC, PBNP, ANEU #### [address] [address] AST [Catalytic activity/Vol] 15 U/L Normal 10-40 [facility] ([place]) Comment on above: Performed By: #### A DIFF, TROPHS, GFR, BMP, MDW, CBC, PBNP, ANEU #### [address] [address] Bili Total 0.5 mg/dL Normal 0.2-1.0 [facility] ([place]) Comment on above: Result Comment: Use of this assay is not recommended for patients undergoing treatment with eltrombopag due to the potential for falsely elevated results. Performed By: #### A DIFF, TROPHS, GFR, BMP, MDW, CBC, PBNP, ANEU #### [address] [address] BUN/Creatinine Ratio 14 ratio Normal 7-27 [facility] ([place]) Comment on above: Performed By: #### A DIFF, TROPHS, GFR, BMP, MDW, CBC, PBNP, ANEU #### [address] [address] Calcium [Mass/Vol] 8.7 mg/dL Normal 8.4-10.2 [facility] ([place]) Comment on above: Performed By: #### A DIFF, TROPHS, GFR, BMP, MDW, CBC, PBNP, ANEU #### [address] [address] Chloride [Moles/Vol] 100 mmol/L Normal 98-107 [facility] ([place]) Comment on above: Performed By: #### A DIFF, TROPHS, GFR, BMP, MDW, CBC, PBNP, ANEU #### [address] [address] CO2 [Moles/Vol] 34 mmol/L High 22-29 [facility] ([place] Comment on above: Performed By: #### A DIFF, TROPHS, GFR, BMP, MDW, CBC, PBNP, ANEU #### [address] [address] Creatinine [Mass/Vol] 0.78 mg/dL Normal 0.70-1.30 [facility] ([place]) Comment on above: Performed By: #### A DIFF, TROPHS, GFR, BMP, MDW, CBC, PBNP, ANEU #### [address] [address] Electrolyte Balance 6.0 mEq/L Normal 4.0-15.0 [facility] ([place]) Comment on above: Performed By: #### A DIFF, TROPHS, GFR, BMP, MDW, CBC, PBNP, ANEU #### [address] [address] Globulin 3.8 G/dL Normal [facility] ([place] Comment on above: Performed By: #### A DIFF, TROPHS, GFR, BMP, MDW, CBC, PBNP, ANEU #### [address] [address] Glucose [Mass/Vol] 121 mg/dL High 70-105 [facility] ([place]) Comment on above: Performed By: #### A DIFF, TROPHS, GFR, BMP, MDW, CBC, PBNP, ANEU #### [address] [address] Potassium [Moles/Vol] 4.2 mmol/L Normal 3.5-5.1 [facility] ([place]) Comment on above: Performed By: #### A DIFF, TROPHS, GFR, BMP, MDW, CBC, PBNP, ANEU #### [place] [address] Sodium [Moles/Vol] 140 mmol/L Normal 136-145 [facility] ([place]) Comment on above: Performed By: #### A DIFF, TROPHS, GFR, BMP, MDW, CBC, PBNP, ANEU #### [place] [address] Total Protein 7.2 G/dL Normal 6.4-8.2 [facility]) Comment on above: Performed By: #### A DIFF, TROPHS, GFR, BMP, MDW, CBC, PBNP, ANEU #### [place] [address] Urea nitrogen [Mass/Vol] 11 mg/dL Normal 7-18 [facility] [place] Comment on above: Performed By: #### A DIFF, TROPHS, GFR, BMP, MDW, CBC, PBNP, ANEU #### [place] [address] LABORATORYOrdered By: Jr Fontaine on 08-08-2023 Albumin DL <= 20 mg/L (U) [Mass/Vol] 378 mcg/dL Invalid Interpretation Code AO ADM SS Albumin/Creatinine DL <= 20 mg/L (U) [Mass ratio] 12 mcg/mg Normal 0 - 30 mcg/mg AO ADM SS Creatinine (U) [Mass/Vol] 30.5 mg/dL Low 39.0 - 259.0 mg/dL AO ADM SS LIPIDon 08-08-2023 Cholesterol [Mass/Vol] 156 mg/dL Normal 0-200 [facility] ([place] Comment on above: Result Comment: Chol esterol Reference Interval: Less than 200 Desirable 200-239 Borderline high risk 240 and above High risk Performed By: #### A DIFF, TROPHS, GFR, BMP, MDW, CBC, PBNP, ANEU #### Larry [place] [address] [place], [place] [address] Cholesterol in HDL [Mass/Vol] 28 mg/dL Low 40-60 [facility] ([place] Comment on above: Performed By: #### A DIFF, TROPHS, GFR, BMP, MDW, CBC, PBNP, ANEU #### [address] [address] Cholesterol in LDL [Mass/Vol] 93 mg/dL Normal 0-130 [facility] ([place] Comment on above: Performed By: #### A DIFF, TROPHS, GFR, BMP, MDW, CBC, PBNP, ANEU #### [address] [address] Triglyceride [Mass/Vol] 175 mg/dL High 0-150 [facility] ([place] Comment on above: Result Comment: Trig lyceride Reference Interval: Less than 150 Normal 150-199 Borderline high risk 200-499 High risk 500 or higher Very high risk Performed By: #### A DIFF, TROPHS, GFR, BMP, MDW, CBC, PBNP, ANEU #### [address] [address] MALBRon 08-08-2023 U Creatinine 30.5 mg/dL Low 39.0-259.0 [facility] ([place] Comment on above: Performed By: #### A DIFF, TROPHS, GFR, BMP, MDW, CBC, PBNP, ANEU #### [address] [address] U Microalb 378 mcg/dL Normal [facility] ([place] Comment on above: Performed By: #### A DIFF, TROPHS, GFR, BMP, MDW, CBC, PBNP, ANEU #### [address] [address] U Ratio Alb/Cre 12 mcg/mg Normal 0-30 [facility] ([place] Comment on above: Performed By: #### A DIFF, TROPHS, GFR, BMP, MDW, CBC, PBNP, ANEU #### [address] [address] CVFLURVon 06-13-2023 FLU A PCR Negative Normal Negative [facility] ([place] Comment on above: Performed By: #### A DIFF, TROPHS, GFR, BMP, MDW, CBC, PBNP, ANEU #### [place] [address] FLU B PCR Negative Normal Negative [facility] ([place] Comment on above: Performed By: #### A DIFF, TROPHS, GFR, BMP, MDW, CBC, PBNP, ANEU #### [place] [address] RSV PCR Negative Normal Negative [facility] ([place] Comment on above: Performed By: #### A DIFF, TROPHS, GFR, BMP, MDW, CBC, PBNP, ANEU #### [place] [address] SARS-CoV-2 (COVID-19) RNA ROSE+probe Ql (Unsp spec) Negative Normal Negative [facility] ([place] Comment on above: Result Comment: This test [...] GFR, BMP, MDW, CBC, PBNP, ANEU #### [place] [address] LABORATORYOrdered By: Giovana Fischer on 06-13-2023 FLUAV [...] 06/13/2023 12:39:50 AM Ordering Provider: DEMI Kate [facility] ([place]) .Auto Diffon 06-09-2023 Basophil, Absolute 0.1 10 3/mcL Normal 0.0-0.3 [facility] ([place]) Comment on above: Performed By: #### A DIFF, TROPHS, GFR, BMP, MDW, CBC, PBNP, ANEU #### [address] [address] Basophils/100 WBC (Bld) 0.8 % Normal 0.0-2.5 [facility] ([place]) Comment on above: Performed By: #### A DIFF, TROPHS, GFR, BMP, MDW, CBC, PBNP, ANEU #### [address] [address] Eosinophil, Absolute 0.1 10 3/mcL Normal 0.0-0.7 [facility] ([place]) Comment on above: Performed By: #### A DIFF, TROPHS, GFR, BMP, MDW, CBC, PBNP, ANEU #### [address] [address] Eosinophils/100 WBC (Bld) 2.0 % Normal 0.0-6.0 [facility] ([place]) Comment on above: Performed By: #### A DIFF, TROPHS, GFR, BMP, MDW, CBC, PBNP, ANEU #### [address] [address] Lymphocyte, Absolute 1.0 10 3/mcL Normal 0.9-4.3 [facility] ([place]) Comment on above: Performed By: #### A DIFF, TROPHS, GFR, BMP, MDW, CBC, PBNP, ANEU #### [address] [address] Lymphocytes/100 WBC (Bld) 15.5 % Low 20.0-40.0 [facility] ([place] Comment on above: Performed By: #### A DIFF, TROPHS, GFR, BMP, MDW, CBC, PBNP, ANEU #### [address] [address] Monocyte, Absolute 0.7 10 3/mcL Normal 0.1-1.4 [facility] ([place]) Comment on above: Performed By: #### A DIFF, TROPHS, GFR, BMP, MDW, CBC, PBNP, ANEU #### [address] [address] Monocytes/100 WBC (Bld) 11.1 % Normal 2.0-13.0 [facility] ([place] Comment on above: Performed By: #### A DIFF, TROPHS, GFR, BMP, MDW, CBC, PBNP, ANEU #### [address] [address] Neutrophils/100 WBC (Bld) 70.6 % Normal 50.0-75.0 [facility] ([place]) Comment on above: Performed By: #### A DIFF, TROPHS, GFR, BMP, MDW, CBC, PBNP, ANEU #### [address] [address] .GFRon 06-09-2023 GFR Non- >60 Normal [facility] ([place]) Comment on above: Result Comment: GFR Population [...] GFR, BMP, MDW, CBC, PBNP, ANEU #### [address] [address] GFR >60 Normal [facility] ([place]) Comment on above: Result Comment: GFR Population [...] GFR, BMP, MDW, CBC, PBNP, ANEU #### [address] [address] .NEUABSon 06-09-2023 Neutrophil, Absolute 4.7 10 3/mcL Normal 2.3-8.1 [facility] ([place]) Comment on above: Performed By: #### A DIFF, TROPHS, GFR, BMP, MDW, CBC, PBNP, ANEU #### [address] [address] BMPon 06-09-2023 BUN/Creatinine Ratio 11.8 ratio Normal 10.0-22.0 [facility] ([place]) Comment on above: Performed By: #### A DIFF, TROPHS, GFR, BMP, MDW, CBC, PBNP, ANEU #### [address] [address] Calcium [Mass/Vol] 9.0 mg/dL Normal 8.7-10.4 [facility] ([place]) Comment on above: Performed By: #### A DIFF, TROPHS, GFR, BMP, MDW, CBC, PBNP, ANEU #### [address] [address] Chloride [Moles/Vol] 102 mmol/L Normal 98-110 [facility] ([place]) Comment on above: Performed By: #### A DIFF, TROPHS, GFR, BMP, MDW, CBC, PBNP, ANEU #### [address] [address] CO2 [Moles/Vol] 35 mmol/L High 22-32 [facility] ([place]) Comment on above: Performed By: #### A DIFF, TROPHS, GFR, BMP, MDW, CBC, PBNP, ANEU #### [address] [address] Creatinine [Mass/Vol] 0.85 mg/dL Normal 0.60-1.40 [facility] ([place]) Comment on above: Performed By: #### A DIFF, TROPHS, GFR, BMP, MDW, CBC, PBNP, ANEU #### [address] [address] Electrolyte Balance 0.0 mEq/L Low 4.0-15.0 [facility] ([place]) Comment on above: Performed By: #### A DIFF, TROPHS, GFR, BMP, MDW, CBC, PBNP, ANEU #### [address] [address] Glucose [Mass/Vol] 146 mg/dL High 70-110 [facility] ([place]) Comment on above: Performed By: #### A DIFF, TROPHS, GFR, BMP, MDW, CBC, PBNP, ANEU #### [address] [address] Potassium [Moles/Vol] 4.8 mmol/L Normal 3.5-5.0 [facility] ([place]) Comment on above: Performed By: #### A DIFF, TROPHS, GFR, BMP, MDW, CBC, PBNP, ANEU #### [address] [address] Sodium [Moles/Vol] 137 mmol/L Normal 136-145 [facility] ([place]) Comment on above: Performed By: #### A DIFF, TROPHS, GFR, BMP, MDW, CBC, PBNP, ANEU #### [address] [address] Urea nitrogen [Mass/Vol] 10.0 mg/dL Normal 8.0-22.0 [facility] ([place]) Comment on above: Result Comment: Spec imen hemolyzed. Results may be falsely elevated. Performed By: #### A DIFF, TROPHS, GFR, BMP, MDW, CBC, PBNP, ANEU #### [address] [address] CBCon 06-09-2023 Erythrocyte distribution width (RBC) [Ratio] 13.3 % Normal 11.5-15.5 [facility] ([place]) Comment on above: Performed By: #### A DIFF, TROPHS, GFR, BMP, MDW, CBC, PBNP, ANEU #### [address] [address] Hematocrit (Bld) [Volume fraction] 45.9 % Normal 40.0-52.0 [facility] ([place]) Comment on above: Performed By: #### A DIFF, TROPHS, GFR, BMP, MDW, CBC, PBNP, ANEU #### [address] [address] Hgb 15.6 G/dL Normal 13.0-17.5 [facility] ([place]) Comment on above: Performed By: #### A DIFF, TROPHS, GFR, BMP, MDW, CBC, PBNP, ANEU #### [address] [address] MCH (RBC) [Entitic mass] 29.0 pg Normal 27.0-33.0 [facility] ([place]) Comment on above: Performed By: #### A DIFF, TROPHS, GFR, BMP, MDW, CBC, PBNP, ANEU #### [address] [address] MCHC 33.9 G/dL Normal 32.0-36.0 [facility] ([place]) Comment on above: Performed By: #### A DIFF, TROPHS, GFR, BMP, MDW, CBC, PBNP, ANEU #### [address] [place] [address] MCV (RBC) [Entitic vol] 85.5 fL Normal 81.0-100.0 [facility] ([place]) Comment on above: Performed By: #### A DIFF, TROPHS, GFR, BMP, MDW, CBC, PBNP, ANEU #### [address] [address] Platelet 174 10 3/mcL Normal 150-450 [facility] ([place]) Comment on above: Performed By: #### A DIFF, TROPHS, GFR, BMP, MDW, CBC, PBNP, ANEU #### [address] [address] Platelet mean volume (Bld) [Entitic vol] 7.5 fL Normal 6.4-10.5 [facility] ([place]) Comment on above: Performed By: #### A DIFF, TROPHS, GFR, BMP, MDW, CBC, PBNP, ANEU #### [address] [address] RBC 5.37 10 6/mcL Normal 4.50-6.00 [facility] ([place]) Comment on above: Performed By: #### A DIFF, TROPHS, GFR, BMP, MDW, CBC, PBNP, ANEU #### [address] [address] WBC 6.6 10 3/mcL Normal 4.5-10.8 [facility] ([place]) Comment on above: Performed By: #### A DIFF, TROPHS, GFR, BMP, MDW, CBC, PBNP, ANEU #### [address] [address] LABORATORYOrdered By: Adenike Swain on 06-09-2023 Blood Glucose Testing Reason Routine (06/09/23 4:18 PM) [facility] Glucose [Mass/Vol] 114 mg/dL High 70 - 110 mg/dL [facility] LABORATORYOrdered By: Cris Jang on 06-09-2023 Blood Glucose Testing Reason Routine (1/12/24 7:51 AM) [facility] Glucose [Mass/Vol] 142 mg/dL High 70 - 110 mg/dL [facility] LABORATORYOrdered By: SYSTEM SYSTEM on 06-09-2023 [...] 06-09-2023 Magnesium [Mass/Vol] 2.1 mg/dL Normal 1.6-2.4 [facility] ([place]) Comment on above: Performed By: #### A DIFF, TROPHS, GFR, BMP, MDW, CBC, PBNP, ANEU #### Larry [address] [address] .Auto Diffon 06-08-2023 Basophil, Absolute 0.1 10 3/mcL Normal 0.0-0.3 [facility] ([place]) Comment on above: Performed By: #### A DIFF, TROPHS, GFR, BMP, MDW, CBC, PBNP, ANEU #### Larry [address] [address] Basophils/100 WBC (Bld) 0.7 % Normal 0.0-2.5 [facility] ([place]) Comment on above: Performed By: #### A DIFF, TROPHS, GFR, BMP, MDW, CBC, PBNP, ANEU #### [address] [address] Eosinophil, Absolute 0.1 10 3/mcL Normal 0.0-0.7 [facility] ([place]) Comment on above: Performed By: #### A DIFF, TROPHS, GFR, BMP, MDW, CBC, PBNP, ANEU #### [address] [address] Eosinophils/100 WBC (Bld) 1.9 % Normal 0.0-6.0 [facility] ([place]) Comment on above: Performed By: #### A DIFF, TROPHS, GFR, BMP, MDW, CBC, PBNP, ANEU #### [address] [address] Lymphocyte, Absolute 1.3 10 3/mcL Normal 0.9-4.3 [facility] ([place]) Comment on above: Performed By: #### A DIFF, TROPHS, GFR, BMP, MDW, CBC, PBNP, ANEU #### [address] [address] Lymphocytes/100 WBC (Bld) 16.1 % Low 20.0-40.0 [facility] ([place]) Comment on above: Performed By: #### A DIFF, TROPHS, GFR, BMP, MDW, CBC, PBNP, ANEU #### [address] [address] Monocyte, Absolute 0.8 10 3/mcL Normal 0.1-1.4 [facility] ([place]) Comment on above: Performed By: #### A DIFF, TROPHS, GFR, BMP, MDW, CBC, PBNP, ANEU #### [address] [address] Monocytes/100 WBC (Bld) 9.9 % Normal 2.0-13.0 [facility] ([place]) Comment on above: Performed By: #### A DIFF, TROPHS, GFR, BMP, MDW, CBC, PBNP, ANEU #### [address] [address] Neutrophils/100 WBC (Bld) 71.4 % Normal 50.0-75.0 [facility] ([place]) Comment on above: Performed By: #### A DIFF, TROPHS, GFR, BMP, MDW, CBC, PBNP, ANEU #### [address] [address] .GFRon 06-08-2023 GFR >60 Normal [facility] ([place]) Comment on above: Result Comment: GFR Population [...] GFR, BMP, MDW, CBC, PBNP, ANEU #### [address] [address] GFR Non- >60 Normal [facility] ([place]) Comment on above: Result Comment: GFR Population [...] GFR, BMP, MDW, CBC, PBNP, ANEU #### [address] [address] .NEUABSon 06-08-2023 Neutrophil, Absolute 5.7 10 3/mcL Normal 2.3-8.1 [facility] ([place]) Comment on above: Performed By: #### A DIFF, TROPHS, GFR, BMP, MDW, CBC, PBNP, ANEU #### [address] [address] BMPon 06-08-2023 BUN/Creatinine Ratio 10.7 ratio Normal 10.0-22.0 [facility] ([place]) Comment on above: Performed By: #### A DIFF, TROPHS, GFR, BMP, MDW, CBC, PBNP, ANEU #### [place] [id number] Calcium [Mass/Vol] 8.9 mg/dL Normal 8.7-10.4 [facility] ([place]) Comment on above: Performed By: #### A DIFF, TROPHS, GFR, BMP, MDW, CBC, PBNP, ANEU #### [address] [address] Chloride [Moles/Vol] 100 mmol/L Normal 98-110 [facility] ([place]) Comment on above: Performed By: #### A DIFF, TROPHS, GFR, BMP, MDW, CBC, PBNP, ANEU #### [address] [address] CO2 [Moles/Vol] 36 mmol/L High 22-32 [facility] ([place]) Comment on above: Performed By: #### A DIFF, TROPHS, GFR, BMP, MDW, CBC, PBNP, ANEU #### [address] [address] Creatinine [Mass/Vol] 0.75 mg/dL Normal 0.60-1.40 [facility] ([place]) Comment on above: Performed By: #### A DIFF, TROPHS, GFR, BMP, MDW, CBC, PBNP, ANEU #### [address] [address] Electrolyte Balance 1.0 mEq/L Low 4.0-15.0 [facility] ([place]) Comment on above: Performed By: #### A DIFF, TROPHS, GFR, BMP, MDW, CBC, PBNP, ANEU #### [address] [address] Glucose [Mass/Vol] 160 mg/dL High 70-110 [facility] ([place]) Comment on above: Performed By: #### A DIFF, TROPHS, GFR, BMP, MDW, CBC, PBNP, ANEU #### [address] [address] Potassium [Moles/Vol] 3.4 mmol/L Low 3.5-5.0 [facility] ([place]) Comment on above: Result Comment: Spec imen slightly hemolyzed. Performed By: #### A DIFF, TROPHS, GFR, BMP, MDW, CBC, PBNP, ANEU #### [address] [address] Sodium [Moles/Vol] 137 mmol/L Normal 136-145 [facility] ([place]) Comment on above: Performed By: #### A DIFF, TROPHS, GFR, BMP, MDW, CBC, PBNP, ANEU #### [address] [address] Urea nitrogen [Mass/Vol] 8.0 mg/dL Normal 8.0-22.0 [facility] ([place]) Comment on above: Performed By: #### A DIFF, TROPHS, GFR, BMP, MDW, CBC, PBNP, ANEU #### [address] [address] CBCon 06-08-2023 Erythrocyte distribution width (RBC) [Ratio] 13.1 % Normal 11.5-15.5 [facility] ([place]) Comment on above: Performed By: #### A DIFF, TROPHS, GFR, BMP, MDW, CBC, PBNP, ANEU #### [address] [address] Hematocrit (Bld) [Volume fraction] 45.7 % Normal 40.0-52.0 [facility] ([place]) Comment on above: Performed By: #### A DIFF, TROPHS, GFR, BMP, MDW, CBC, PBNP, ANEU #### [address] [address] Hgb 15.6 G/dL Normal 13.0-17.5 [facility] ([place]) Comment on above: Performed By: #### A DIFF, TROPHS, GFR, BMP, MDW, CBC, PBNP, ANEU #### [address] [address] MCH (RBC) [Entitic mass] 29.1 pg Normal 27.0-33.0 [facility] ([place]) Comment on above: Performed By: #### A DIFF, TROPHS, GFR, BMP, MDW, CBC, PBNP, ANEU #### [address] [address] MCHC 34.3 G/dL Normal 32.0-36.0 [facility] ([place]) Comment on above: Performed By: #### A DIFF, TROPHS, GFR, BMP, MDW, CBC, PBNP, ANEU #### [address] [address] MCV (RBC) [Entitic vol] 85.0 fL Normal 81.0-100.0 [facility] ([place]) Comment on above: Performed By: #### A DIFF, TROPHS, GFR, BMP, MDW, CBC, PBNP, ANEU #### [address] [address] Platelet 200 10 3/mcL Normal 150-450 [facility] ([place]) Comment on above: Performed By: #### A DIFF, TROPHS, GFR, BMP, MDW, CBC, PBNP, ANEU #### [address] [address] Platelet mean volume (Bld) [Entitic vol] 7.5 fL Normal 6.4-10.5 [facility] ([place]) Comment on above: Performed By: #### A DIFF, TROPHS, GFR, BMP, MDW, CBC, PBNP, ANEU #### [facility] [address] [place], [place] [address] RBC 5.37 10 6/mcL Normal 4.50-6.00 [facility] ([place]) Comment on above: Performed By: #### A DIFF, TROPHS, GFR, BMP, MDW, CBC, PBNP, ANEU #### [facility] [address] [place], [place] [address] WBC 7.9 10 3/mcL Normal 4.5-10.8 [facility] ([place]) Comment on above: Performed By: #### A DIFF, TROPHS, GFR, BMP, MDW, CBC, PBNP, ANEU #### [place] [address] [place], [place] [address] LABORATORYOrdered By: Adenike Swain on 06-08-2023 Blood Glucose Testing Reason Routine (06/08/23 9:18 PM) [facility] Glucose [Mass/Vol] 173 mg/dL High 70 - 110 mg/dL [facility] LABORATORYOrdered By: SYSTEM SYSTEM on 06-08-2023 [...] (S/P/Bld) [Vol rate/Area] ml/min/1.73sqm Invalid Interpretation Code [facility] Comment on above: Interpretive Data: GFR [...] (S/P/Bld) [Vol rate/Area] ml/min/1.73sqm Invalid Interpretation Code [facility] Comment on above: Interpretive Data: GFR [...] 06-08-2023 Magnesium [Mass/Vol] 2.1 mg/dL Normal 1.6-2.4 [facility] ([place]) Comment on above: Performed By: #### A DIFF, TROPHS, GFR, BMP, MDW, CBC, PBNP, ANEU #### [address] [address] .Auto Diffon 06-07-2023 Basophil, Absolute 0.1 10 3/mcL Normal 0.0-0.3 [facility] ([place]) Comment on above: Performed By: #### A DIFF, TROPHS, GFR, BMP, MDW, CBC, PBNP, ANEU #### [address] [address] Basophils/100 WBC (Bld) 0.6 % Normal 0.0-2.5 [facility] ([place]) Comment on above: Performed By: #### A DIFF, TROPHS, GFR, BMP, MDW, CBC, PBNP, ANEU #### [address] [address] Eosinophil, Absolute 0.2 10 3/mcL Normal 0.0-0.7 [facility] ([place]) Comment on above: Performed By: #### A DIFF, TROPHS, GFR, BMP, MDW, CBC, PBNP, ANEU #### [address] [address] Eosinophils/100 WBC (Bld) 1.6 % Normal 0.0-6.0 [facility] ([place]) Comment on above: Performed By: #### A DIFF, TROPHS, GFR, BMP, MDW, CBC, PBNP, ANEU #### [address] [address] Lymphocyte, Absolute 1.4 10 3/mcL Normal 0.9-4.3 [facility] ([place]) Comment on above: Performed By: #### A DIFF, TROPHS, GFR, BMP, MDW, CBC, PBNP, ANEU #### [address] [address] Lymphocytes/100 WBC (Bld) 14.0 % Low 20.0-40.0 [facility] ([place] Comment on above: Performed By: #### A DIFF, TROPHS, GFR, BMP, MDW, CBC, PBNP, ANEU #### [address] [address] Monocyte, Absolute 0.6 10 3/mcL Normal 0.1-1.4 [facility] ([place]) Comment on above: Performed By: #### A DIFF, TROPHS, GFR, BMP, MDW, CBC, PBNP, ANEU #### [address] [address] Monocytes/100 WBC (Bld) 6.4 % Normal 2.0-13.0 [facility] ([place] Comment on above: Performed By: #### A DIFF, TROPHS, GFR, BMP, MDW, CBC, PBNP, ANEU #### [address] [address] Neutrophils/100 WBC (Bld) 77.4 % High 50.0-75.0 [facility] ([place] Comment on above: Performed By: #### A DIFF, TROPHS, GFR, BMP, MDW, CBC, PBNP, ANEU #### [address] [address] .GFRon 06-07-2023 GFR >60 Normal [facility] ([place]) Comment on above: Result Comment: GFR Population [...] GFR, BMP, MDW, CBC, PBNP, ANEU #### [address] [address] GFR Non- >60 Normal [facility] ([place]) Comment on above: Result Comment: GFR Population [...] GFR, BMP, MDW, CBC, PBNP, ANEU #### [address] [address] .NEUABSon 06-07-2023 Neutrophil, Absolute 7.7 10 3/mcL Normal 2.3-8.1 [facility] ([place]) Comment on above: Performed By: #### A DIFF, TROPHS, GFR, BMP, MDW, CBC, PBNP, ANEU #### [address] [address] CBCon 06-07-2023 Erythrocyte distribution width (RBC) [Ratio] 14.0 % Normal 11.5-15.5 [facility] ([place] Comment on above: Performed By: #### A DIFF, TROPHS, GFR, BMP, MDW, CBC, PBNP, ANEU #### [address] [address] Hematocrit (Bld) [Volume fraction] 47.6 % Normal 40.0-52.0 [facility] ([place] Comment on above: Performed By: #### A DIFF, TROPHS, GFR, BMP, MDW, CBC, PBNP, ANEU #### [place] [phone] Hgb 16.3 G/dL Normal 13.0-17.5 [facility] ([place] Comment on above: Performed By: #### A DIFF, TROPHS, GFR, BMP, MDW, CBC, PBNP, ANEU #### [address] [address] MCH (RBC) [Entitic mass] 29.1 pg Normal 27.0-33.0 [facility] ([place] Comment on above: Performed By: #### A DIFF, TROPHS, GFR, BMP, MDW, CBC, PBNP, ANEU #### [address] [address] MCHC 34.2 G/dL Normal 32.0-36.0 [facility] ([place] Comment on above: Performed By: #### A DIFF, TROPHS, GFR, BMP, MDW, CBC, PBNP, ANEU #### [address] [address] MCV (RBC) [Entitic vol] 84.9 fL Normal 81.0-100.0 [facility] ([place] Comment on above: Performed By: #### A DIFF, TROPHS, GFR, BMP, MDW, CBC, PBNP, ANEU #### [address] [address] Platelet 228 10 3/mcL Normal 150-450 [facility] ([place] Comment on above: Performed By: #### A DIFF, TROPHS, GFR, BMP, MDW, CBC, PBNP, ANEU #### [address] [address] Platelet mean volume (Bld) [Entitic vol] 8.0 fL Normal 6.4-10.5 [facility] ([place] Comment on above: Performed By: #### A DIFF, TROPHS, GFR, BMP, MDW, CBC, PBNP, ANEU #### [place] [phone] RBC 5.61 10 6/mcL Normal 4.50-6.00 [facility] ([place]) Comment on above: Performed By: #### A DIFF, TROPHS, GFR, BMP, MDW, CBC, PBNP, ANEU #### [address] [address] WBC 9.9 10 3/mcL Normal 4.5-10.8 [facility] ([place]) Comment on above: Performed By: #### A DIFF, TROPHS, GFR, BMP, MDW, CBC, PBNP, ANEU #### [address] [address] CMPon 06-07-2023 Albumin Level 3.3 G/dL Normal 3.2-4.8 [facility] ([place] Comment on above: Order Comment: hemol yzed. needs redrawn Performed By: #### A DIFF, TROPHS, GFR, BMP, MDW, CBC, PBNP, ANEU #### [address] [address] Albumin/Globulin [Mass ratio] 0.9 {ratio} Normal 0.9-1.6 [facility] ([place]) Comment on above: Order Comment: hemol yzed. needs redrawn Performed By: #### A DIFF, TROPHS, GFR, BMP, MDW, CBC, PBNP, ANEU #### [address] [address] ALP [Catalytic activity/Vol] 93 U/L Normal 38-126 [facility] ([place] Comment on above: Order Comment: hemol yzed. needs redrawn Performed By: #### A DIFF, TROPHS, GFR, BMP, MDW, CBC, PBNP, ANEU #### [address] [address] ALT [Catalytic activity/Vol] 13 U/L Normal 12-55 [facility] ([place] Comment on above: Order Comment: hemol yzed. needs redrawn Performed By: #### A DIFF, TROPHS, GFR, BMP, MDW, CBC, PBNP, ANEU #### [address] [address] AST [Catalytic activity/Vol] 13 U/L Normal 8-34 [facility] ([place] Comment on above: Order Comment: hemol yzed. needs redrawn Performed By: #### A DIFF, TROPHS, GFR, BMP, MDW, CBC, PBNP, ANEU #### [address] [address] Bili Total 0.30 mg/dL Normal 0.20-1.20 [facility] ([place]) Comment on above: Order Comment: hemol yzed. needs redrawn Result Comment: Use of this assay is not recommended for patients undergoing treatment with eltrombopag due to the potential for falsely elevated results. Performed By: #### A DIFF, TROPHS, GFR, BMP, MDW, CBC, PBNP, ANEU #### [address] [address] BUN/Creatinine Ratio 10.8 ratio Normal 10.0-22.0 [facility] ([place]) Comment on above: Order Comment: hemol yzed. needs redrawn Performed By: #### A DIFF, TROPHS, GFR, BMP, MDW, CBC, PBNP, ANEU #### [address] [address] Calcium [Mass/Vol] 8.8 mg/dL Normal 8.7-10.4 [facility] ([place]) Comment on above: Order Comment: hemol yzed. needs redrawn Performed By: #### A DIFF, TROPHS, GFR, BMP, MDW, CBC, PBNP, ANEU #### [address] [address] Chloride [Moles/Vol] 97 mmol/L Low 98-110 [facility] ([place]) Comment on above: Order Comment: hemol yzed. needs redrawn Performed By: #### A DIFF, TROPHS, GFR, BMP, MDW, CBC, PBNP, ANEU #### [address] [address] CO2 [Moles/Vol] 37 mmol/L High 22-32 [facility] ([place] Comment on above: Order Comment: hemol yzed. needs redrawn Performed By: #### A DIFF, TROPHS, GFR, BMP, MDW, CBC, PBNP, ANEU #### [address] [address] Creatinine [Mass/Vol] 0.93 mg/dL Normal 0.60-1.40 [facility] ([place]) Comment on above: Order Comment: hemol yzed. needs redrawn Performed By: #### A DIFF, TROPHS, GFR, BMP, MDW, CBC, PBNP, ANEU #### [address] [address] Electrolyte Balance 3.0 mEq/L Low 4.0-15.0 [facility] ([place]) Comment on above: Order Comment: hemol yzed. needs redrawn Performed By: #### A DIFF, TROPHS, GFR, BMP, MDW, CBC, PBNP, ANEU #### [address] [address] Globulin 3.6 G/dL Normal 1.5-3.8 [facility] ([place] Comment on above: Order Comment: hemol yzed. needs redrawn Performed By: #### A DIFF, TROPHS, GFR, BMP, MDW, CBC, PBNP, ANEU #### [address] [address] Glucose [Mass/Vol] 209 mg/dL High 70-110 [facility] ([place]) Comment on above: Order Comment: hemol yzed. needs redrawn Performed By: #### A DIFF, TROPHS, GFR, BMP, MDW, CBC, PBNP, ANEU #### [address] [address] Potassium [Moles/Vol] 3.6 mmol/L Normal 3.5-5.0 [facility] ([place]) Comment on above: Order Comment: hemol yzed. needs redrawn Result Comment: Spec imen slightly hemolyzed. Performed By: #### A DIFF, TROPHS, GFR, BMP, MDW, CBC, PBNP, ANEU #### [address] [address] Sodium [Moles/Vol] 137 mmol/L Normal 136-145 [facility] ([place]) Comment on above: Order Comment: hemol yzed. needs redrawn Performed By: #### A DIFF, TROPHS, GFR, BMP, MDW, CBC, PBNP, ANEU #### [place] [address] [place], [place] [address] Total Protein 6.9 G/dL Normal 5.7-8.2 [facility] ([place] Comment on above: Order Comment: hemol yzed. needs redrawn Result Comment: No te - New Reference Range in effect 19 Performed By: #### A DIFF, TROPHS, GFR, BMP, MDW, CBC, PBNP, ANEU #### [place] [address] [place], [place] [address] Urea nitrogen [Mass/Vol] 10.0 mg/dL Normal 8.0-22.0 [facility] ([place] Comment on above: Order Comment: hemol yzed. needs redrawn Performed By: #### A DIFF, TROPHS, GFR, BMP, MDW, CBC, PBNP, ANEU #### [address] [address] LABORATORYOrdered By: SYSTEM SYSTEM on 06-07-2023 Albumin [...] 06-07-2023 Magnesium [Mass/Vol] 1.7 mg/dL Normal 1.6-2.4 [facility] ([place]) Comment on above: Performed By: #### A DIFF, TROPHS, GFR, BMP, MDW, CBC, PBNP, ANEU #### [address] [address] XR CHEST 1 VIEWon 05-05-2023 XR CHEST [...] Date: 05/05/2023 9:17:04 PM Ordering Provider: DEMI [facility] ([place] XR RIBS 2 VIEWS RIGHTon XR RIBS [...] Date: 05/05/2023 9:08:30 PM Ordering Provider: DEMI [facility] ([place]) PBNPon 03-22-2023 Natriuretic peptide B (Bld) [Mass/Vol] 378 pg/mL High 0-125 [facility] ([place]) Comment on above: Result Comment: NT-p roBNP results of less than 300 pg/mL effectively rules out acute congestive heart failure with 99% negative predictive value. Performed By: #### A DIFF, TROPHS, GFR, BMP, MDW, CBC, PBNP, ANEU #### [address] [address] Influenza virus A and B and SARS-CoV-2 (COVID-19) Ag panel - Upper respiratory specimOrdered By: Nguyễn Al on 02-12-2023 SARS-CoV-2 (COVID-19) RNA ROSE+probe Ql (Resp) [facility] LABORATORYOrdered By: SYSTEM SYSTEM on 12-23-2022 Calcium [...] 150 mg/dL AO ADM SS LABORATORYOrdered By: Chumby SYSTEM on 10-27-2022 Albumin BCP dye [Mass/Vol] [...] Auto (Unsp spec) [#/Vol] 1.50 10*3/uL 0.83-4.51 [facility] Basophil percentageOrdered B y: Dr. Brown on 10-23-2022 Basophils/100 WBC (Bld) 0.8 % 0-1 [facility] Chloride [Moles/Vol] 102 mmol/L 98-107 [facility] Eosinophils/100 WBC (Bld) 2.4 % 0-5 [facility] Glucose [Mass/Vol] 126 mg/dL 74-106 [facility] Comment on above: Fasting Glucose resu lt greater than or equal to 126 mg/dL suggests DIABETES MELLITUS per A.D.A. criteria. Neutrophils (Bld) [#/Vol] 5.4 10*3/uL 2.0-7.7 [facility] Neutrophils/100 WBC (Bld) 67.9 % 47-70 [facility] Potassium [Moles/Vol] 3.2 mmol/L 3.5-5.1 [facility] Sodium [Moles/Vol] 140 mmol/L 136-145 [facility] WBC (Bld) [#/Vol] 7.9 10*3/uL 4.4-11.0 [facility] Blood erythrocytes count (nu mber/volume)Ordered By: Dr. Brown on 10-23-2022 RBC (Bld) [#/Vol] 6.06 10*6/uL 4.6-6.2 [facility] Blood hemoglobin measurement (mass/volume)Ordered By: Dr. Brown on 10-23-2022 Hemoglobin (Bld) [Mass/Vol] 17.2 g/dL 13.0-16.5 [facility] Blood lymphocytes/100 leukoc ytesOrdered By: Dr. Brown on 10-23-2022 Lymphocytes/100 WBC (Bld) 19.0 % 19-41 [facility] Blood monocytes/100 leukocyt esOrdered By: Dr. Brown on 10-23-2022 Monocytes/100 WBC (Bld) 9.6 % 0-10 [facility] Blood platelet mean volumeOr dered By: Dr. Brown on 10-23-2022 Platelet mean volume (Bld) [Entitic vol] 10.3 fL 6.2-12.0 [facility] Determination of erythrocyte mean corpuscular volume (MCV)Ordered By: Dr. Brown on 10-23-2022 MCV (RBC) [Entitic vol] 89.6 fL 80-94 [facility] Hematocrit Auto (Bld) [Volum e fraction]Ordered By: Dr. Brown on 10-23-2022 Hematocrit (Bld) [Volume fraction] 54.3 % 40-54 [facility] Laboratory - Chemistry and C hemistry - challengeOrdered By: Dr. Brown on 10-23-2022 CO2 [Moles/Vol] 32.0 mmol/L 21.0-32.0 [facility] Natriuretic peptide B (Bld) [Mass/Vol] 182.2 pg/mL 0-100 [facility] Urea nitrogen/Creatinine [Mass ratio] 13.0 mg/mg 10-20 [facility] Laboratory - Hematology and Cell countsOrdered By: Dr. Brown on 10-23-2022 Erythrocyte distribution width (RBC) [Entitic vol] 46.1 fL 35.1-43.9 [facility] Erythrocyte distribution width (RBC) [Ratio] 14.1 % 11.6-14.6 [facility] Immature granulocytes/100 WBC (Bld) 0.300 % 0.0-0.9 [facility] Comment on above: IG% - Immature Granu locytes (promyelocytes, myelocytes and metamyelocytes) > 1% indicates that a LEFT SHIFT is Present. MCH (RBC) [Entitic mass] 28.4 pg 27.0-32.0 [facility] Nucleated RBC/100 WBC (Bld) [Ratio] 0 % 0-5 [facility] MCHC Auto (RBC) [Mass/Vol]Or dered By: Dr. Brown on 10-23-2022 MCHC (RBC) [Mass/Vol] 31.7 g/dL 32-36 [facility] No Panel InformationOrdered By: Dr. Brown on 10-23-2022 Troponin I High Sensitivity 14 pg/mL 3.0-78.0 [facility] Comment on above: Please Note: New [place] t Units and Gender Specific Reference Ranges. For more information see Policy Stat Procedure [place] High Sensitivity Troponin (TNIH) and attachments. Estimated Creatinine Clearance Calc 104.04 ml/min [facility] Estimated GFR (MDRD) Amer 123 mL/min >60 [facility] Comment on above: GFR Calc Estimated GFR (MDRD) Non-Af Amer 102 mL/min >60 [facility] Comment on above: Non- GFR Calc Platelets bldOrdered By: Dr. Brown on 10-23-2022 Platelets (Bld) [#/Vol] 234 10*3/uL 150-450 [facility] Serum or plasma calcium scott urement (mass/volume)Ordered By: Dr. Brown on 10-23-2022 Calcium [Mass/Vol] 8.7 mg/dL 8.5-10.1 [facility] Serum or plasma creatinine m easurement (mass/volume)Ordered By: Dr. Brown on 10-23-2022 Creatinine [Mass/Vol] 0.84 mg/dL 0.70-1.30 [facility] Comment on above: The validity of the calculated GFR & GFRAA in patients over 70 years has not been determined. Clinical correlation is essential. Serum or plasma urea nitroge n measurement (mass/volume)Ordered By: Dr. Brown on 10-23-2022 Urea nitrogen [Mass/Vol] 11 mg/dL 7-18 [facility] Thin prep Papanicolaou smear with manual screeningOrdered By: Dr. Brown on 10-23-2022 Thin prep Papanicolaou smear with manual screening 6 5-15 [facility] Invasive Cardiology Clinic N oteon 08-24-2021 Invasive Cardiology Clinic Note . [facility] A Division of [facility] Gem Barr M.D., [facility] [address] [place] [address] * Reason for VisitFOLLOW UP CHEST PAIN(1) [...] me to participate in your patient's care. Emergency Doctor Statement: Transcribed for Dr. Barr by LEWIS , telecommunications consultant. Electronic Signatures: Gem Barr) (Signed 11:31) Authored: Letterhead Option, Reason for Visit, Vital Signs, Allergies/Meds, History of Present Illness, Past Medical, Surgical and Family History, ROS, Physical Exam, Results, Assessment and Plan, Emergency Doctor Statement Km Phan (Atg Architect) (Entered 15:30) Entered: Letterhead Option, Reason for Visit, Vital Signs, Allergies/Meds, History of Pr (more content not included)... Normal [employer] Echocardiogram-Completeon Echocardiogram-Comple te Study ID: [id number] [facility] [place] [address] Name: SOCORRO KELLEY JR Study Date: 08/17/2021 07:55 AM BP: 152/92 mmHg Patient Location: [facility] HR: 84 : 1970 Gender: Male Height: 69 in Age: 50 yrs Weight: 348 lb Reason For Study: Chest Pain NOS BSA: 2.6 m2 History: Age,Hypertension,Diabe kassy Ordering Physician: Gem Barr Referring Physician: Zacairas Cohn Performed By: Betsy Mendez RDCS Interpreting [...] mmHg MV P1/2t-pr: 94.6 msec E/LatE': 9.4 [id number] Normal [facility] Invasive Cardiology Clinic N mary 08-02-2021 Invasive Cardiology Clinic Note . [facility] A Division of [facility] Gem Barr M.D., [place] [address] * Reason for VisitFOLLOW UP CHEST PAIN(1) [...] to con (more content not included)... Normal [employer] [facility] 01-29-2021 ER EMERGENCY ROOM NOTE CHIEF [...] up with his primary care physician and/or assistant drafter. Normal [facility] GLYCOHEMOGLOBINon 01-06-2021 HbA1c (Bld) [Mass fraction] 6.43 % High 4.60-6.30 [facility] Comment on above: Performed By: #### % A1c #### [facility] [address] [place] [id number] SUE Flores MD LIPID PROFILE - FASTINGon Cholesterol [Mass/Vol] 152 mg/dL Normal <=200 [facility] Comment on above: Performed By: #### L IPID #### [facility] [address] [place] [address] SUE Flores MD Cholesterol in HDL [Mass/Vol] 28 mg/dL Low 40-60 [facility] Comment on above: Performed By: #### L IPID #### [facility] [address] [place] [address] SUE Flores MD Cholesterol in LDL [Mass/Vol] 85 mg/dL Normal 0-130 [facility] Comment on above: Performed By: #### L IPID #### [facility] [address] [place] [address] SUE Flores MD COMMENT Recommended (Desirable) < 130mg/dL Moderate Risk 130-159 mg/dL High Risk: >/= 130 mg/dL Normal [facility] Comment on above: Performed By: #### L IPID #### [facility] [address] [place] [address] SUE Flores MD Triglyceride [Mass/Vol] 198 mg/dL High <=150 [facility] Comment on above: Performed By: #### L IPID #### [facility] [address] [place] [address] SUE Flores MD RENAL FUNCTION PANELon 01-06 Albumin [Mass/Vol] 4.4 g/dL Normal 3.5-5.0 [facility] Comment on above: Performed By: #### R FP #### [facility] [address] [place] [address] SUE Flores MD Calcium [Mass/Vol] 9.6 mg/dL Normal 8.4-10.2 [facility] Comment on above: Performed By: #### R FP #### [facility] [address] [place] [address] SUE Flores MD Chloride [Moles/Vol] 96 mmol/L Low 98-107 [facility] Comment on above: Performed By: #### R FP #### [facility] [address] [place] [address] SUE Flores MD Creatinine [Mass/Vol] 0.9 mg/dL Normal 0.7-1.3 [facility] Comment on above: Performed By: #### R FP #### [facility] [address] [place] [address] SUE Flores MD ECO2 29 mmol/L Normal 22-30 [facility] Comment on above: Performed By: #### R FP #### [facility] [address] [place] [address] SUE Flores MD EGFR-AF MALAGASY 109 mL/min/1.73m 2 Normal >=60 [facility] Comment on above: Performed By: #### R FP #### [facility] [address] [place], [place] [id number] SUE Flores MD EGFR-NON AF MALAGASY 90 mL/min/1.73 m 2 Normal >=60 [facility] Comment on above: Performed By: #### R FP #### [facility] [address] [place], [place] [id number] SUE Flores MD Glucose [Mass/Vol] 146 mg/dL High 70-99 [facility] Comment on above: Performed By: #### R FP #### [facility] [address] [place] [address] SUE Flores MD Phosphate [Mass/Vol] 4.2 mg/dL Normal 2.5-4.5 [facility] Comment on above: Performed By: #### R FP #### [facility] [address] [place], [place] [id number] SUE Flores MD Potassium [Moles/Vol] 4.0 mmol/L Normal 3.5-5.0 [facility] Comment on above: Performed By: #### R FP #### [facility] [address] [place], [place] [id number] SUE Flores MD Sodium [Moles/Vol] 136 mmol/L Low 137-145 [facility] Comment on above: Performed By: #### R FP #### [facility] [address] [place], [place] [id number] SUE Flores MD Urea nitrogen [Mass/Vol] 13 mg/dL Normal 9-20 [facility] Comment on above: Performed By: #### R FP #### [facility] [address] [place], [place] [id number] SUE Flores MD CHEST TWO VIEWSon 11-09-2020 [...] DYER MD Date: 11/09/2020 3:55 PM Normal [facility] CBC PLT DIFFon 06-11-2020 BASO # 0.04 10 3/uL Normal 0.00-0.10 [facility] Comment on above: Performed By: #### C BC #### [facility] [address] [place], [place] [id number] SUE Flores MD Basophils/100 WBC (Bld) 0.5 % Normal 0.2-1.0 [facility] Comment on above: Performed By: #### C BC #### [facility] [address] [place] [address] SUE Flores MD EOS# 0.19 10 3/uL Normal 0.00-0.20 [facility] Comment on above: Performed By: #### C BC #### [facility] [address] [place] [address] SUE Flores MD Eosinophils/100 WBC (Bld) 2.3 % Normal 0.9-2.9 [facility] Comment on above: Performed By: #### C BC #### [facility] [address] [place] [address] SUE Flores MD Erythrocyte distribution width (RBC) [Ratio] 13.4 % Normal 11.5-15.5 [facility] Comment on above: Performed By: #### C BC #### [facility] [address] [place] [address] SUE Flores MD Hematocrit (Bld) [Volume fraction] 46.5 % Normal 42.0-52.0 [facility] Comment on above: Performed By: #### C BC #### [facility] [address] [place], [place] [id number] SUE Flores MD Hemoglobin (Bld) [Mass/Vol] 16.0 g/dL Normal 14.0-18.0 [facility] Comment on above: Performed By: #### C BC #### [facility] [address] [place] [address] SUE Flores MD IG# 0.04 10 3/uL Normal [facility] Comment on above: Performed By: #### C BC #### [facility] [address] [place] [address] SUE Flores MD IG% 0.5 % Normal [facility] Comment on above: Performed By: #### C BC #### [facility] [address] [place] [address] SUE Flores MD LYMPH# 1.41 10 3/uL Normal 1.30-2.90 [facility] Comment on above: Performed By: #### C BC #### [facility] [address] [place], [place] [id number] SUE Flores MD Lymphocytes/100 WBC (Bld) 17.4 % Low 20.5-45.5 [facility] Comment on above: Performed By: #### C BC #### [facility] [address] [place] [address] SUE Flores MD MCH (RBC) [Entitic mass] 30.1 pg Normal 27.0-31.0 [facility] Comment on above: Performed By: #### C BC #### [facility] [address] [place] [address] SUE Flores MD MCHC (RBC) [Mass/Vol] 34.4 g/dL Normal 32.0-36.0 [facility] Comment on above: Performed By: #### C BC #### [facility] [address] [place] [address] SUE Flores MD MCV (RBC) [Entitic vol] 87.6 fL Normal 80.0-94.0 [facility] Comment on above: Performed By: #### C BC #### [facility] [address] [place] [address] SUE Flores MD MONO# 0.67 10 3/uL Normal 0.30-0.80 [facility] Comment on above: Performed By: #### C BC #### [facility] [address] [place] [address] SUE Flores MD Monocytes/100 WBC (Bld) 8.3 % Normal 5.5-11.7 [facility] Comment on above: Performed By: #### C BC #### [facility] [address] [place], [place] [id number] SUE Flores MD Morphology Rocky (Bld) [Interp] Normal [facility] Comment on above: Performed By: #### C BC #### [facility] [address] [place] [address] SUE Flores MD NEUT# 5.75 10 3/uL High 2.20-4.80 [facility] Comment on above: Performed By: #### C BC #### [facility] [address] [place] [address] SUE Flores MD Neutrophils/100 WBC (Bld) 71.0 % High 43.0-65.0 [facility] Comment on above: Performed By: #### C BC #### [facility] [address] [place], [place] [id number] SUE Flores MD NRBC# 0.00 10 3/uL Normal [facility] Comment on above: Performed By: #### C BC #### [facility] [address] [place], [place] [id number] SUE Flores MD Nucleated RBC/100 WBC (Bld) [Ratio] 0.0 % Normal [facility] Comment on above: Performed By: #### C BC #### [facility] [address] [place], [place] [id number] SUE Flores MD Platelet mean volume (Bld) [Entitic vol] 8.4 fL Normal 7.4-10.4 [facility] Comment on above: Performed By: #### C BC #### [facility] [address] [place], [place] [id number] SUE Flores MD PLT 221 10 3/uL Normal 130-400 [facility] Comment on above: Performed By: #### C BC #### [facility] [address] [place], [place] [id number] SUE Flores MD RBC 5.31 10 6/uL Normal 4.70-6.10 [facility] Comment on above: Performed By: #### C BC #### [facility] [address] [place], [place] [id number] SUE Flores MD WBC 8.10 10 3/uL Normal 4.70-10.80 [facility] Comment on above: Performed By: #### C BC #### [facility] [address] [place], [place] [id number] SUE Flores MD CMPon 06-11-2020 Albumin [Mass/Vol] 4.1 g/dL Normal 3.5-5.0 [facility] Comment on above: Performed By: #### C MP #### [facility] [address] [place] [address] SUE Flores MD ALP [Catalytic activity/Vol] 72 U/L Normal 38-126 [facility] Comment on above: Performed By: #### C MP #### [facility] [address] [place] [address] SUE Flores MD ALT [Catalytic activity/Vol] 17 U/L Low 21-72 [facility] Comment on above: Performed By: #### C MP #### [facility] [address] [place] [address] SUE Flores MD AST [Catalytic activity/Vol] 21 U/L Normal 17-59 [facility] Comment on above: Performed By: #### C MP #### [facility] [address] [place], [place] [id number] SUE Flores MD Bilirubin [Mass/Vol] 0.6 mg/dL Normal 0.2-1.3 [facility] Comment on above: Performed By: #### C MP #### [facility] [address] [place], [place] [id number] SUE Flores MD Calcium [Mass/Vol] 8.9 mg/dL Normal 8.4-10.2 [facility] Comment on above: Performed By: #### C MP #### [facility] [address] [place], [place] [id number] SUE Flores MD Chloride [Moles/Vol] 99 mmol/L Normal 98-107 [facility] Comment on above: Performed By: #### C MP #### [facility] [address] [place] [address] SUE Flores MD Creatinine [Mass/Vol] 0.7 mg/dL Normal 0.7-1.3 [facility] Comment on above: Performed By: #### C MP #### [facility] [address] [place] [address] SUE Flores MD ECO2 30 mmol/L Normal 22-30 [facility] Comment on above: Performed By: #### C MP #### [facility] [address] [place] [address] SUE Flores MD EGFR-AF MALAGASY 146 mL/min/1.73m 2 Normal >=60 [facility] Comment on above: Performed By: #### C MP #### [facility] [address] [place] [address] SUE Flores MD EGFR-NON AF MALAGASY 120 mL/min/1.73 m 2 Normal >=60 [facility] Comment on above: Performed By: #### C MP #### [facility] [address] [place] [address] SUE Flores MD Glucose [Mass/Vol] 125 mg/dL High 70-99 [facility] Comment on above: Performed By: #### C MP #### [facility] [address] [place] [address] SUE Flores MD Potassium [Moles/Vol] 3.6 mmol/L Normal 3.5-5.0 [facility] Comment on above: Performed By: #### C MP #### [facility] [address] [place] [address] SUE Flores MD Protein [Mass/Vol] 7.4 g/dL Normal 6.3-8.2 [facility] Comment on above: Performed By: #### C MP #### [facility] [address] [place], [place] [id number] SUE Flores MD Sodium [Moles/Vol] 136 mmol/L Low 137-145 [facility] Comment on above: Performed By: #### C MP #### [facility] [address] [place], [place] [id number] SUE Flores MD Urea nitrogen [Mass/Vol] 11 mg/dL Normal 9-20 [facility] Comment on above: Performed By: #### C MP #### [facility] [address] [place] [address] SUE Flores MD GLYCOHEMOGLOBINon 06-11-2020 HbA1c (Bld) [Mass fraction] 6.22 % Normal 4.00-6.30 [facility] Comment on above: Performed By: #### % A1c #### [facility] [address] [place] [address] SUE Flores MD LIPID PROFILE - FASTINGon Cholesterol [Mass/Vol] 147 mg/dL Normal <=200 [facility] Comment on above: Performed By: #### L IPID #### [facility] [address] [place] [address] SUE Flores MD Cholesterol in HDL [Mass/Vol] 24 mg/dL Low 40-60 [facility] Comment on above: Performed By: #### L IPID #### [facility] [address] [place] [address] SUE Flores MD Cholesterol in LDL [Mass/Vol] 89 mg/dL Normal 0-130 [facility] Comment on above: Performed By: #### L IPID #### [facility] [address] [place] [address] SUE Flores MD COMMENT Recommended (Desirable) < 130mg/dL Moderate Risk 130-159 mg/dL High Risk: >/= 130 mg/dL Normal [facility] Comment on above: Performed By: #### L IPID #### [facility] [address] [place] [address] SUE Flores MD Triglyceride [Mass/Vol] 167 mg/dL High <=150 [facility] Comment on above: Performed By: #### L IPID #### [facility] [address] [place], [place] [address] SUE Flores MD URIC ACIDon 06-11-2020 Urate [Mass/Vol] 5.6 mg/dL Normal 3.5-8.5 [facility] Comment on above: Performed By: #### U R #### [facility] [address] [place] [address] SUE Flores MD Vital Signs Date Time Vital Sign Value Performing Clinician Faci lity 10-04-2024 21:13-0400 Reason For Taking VItal Signs DR ROBERT SCHMITZ MD [address] [place] [id number] 10-04-2024 19:37-0400 Heart rate 71 /min DR ROBERT Walls [address] [place] [id number] 10-04-2024 19:37-0400 Reason For Taking VItal Signs DR ROBERT SCHMITZ MD [address] [place] [id number] 10-04-2024 19:37-0400 Respiratory rate 18 /min DR ROBERT Walls [address] [place] [id number] 10-04-2024 19:14-0400 Heart rate 66 /min DR ROBERT Walls [address] [place] [id number] 10-04-2024 19:14-0400 Blood Pressure Cuff Size DR ROBERT SCHMITZ MD [address] [place] [id number] 10-04-2024 19:14-[address] ROBERT SCHMITZ MD [address] [place] [id number] 10-04-2024 19:14-[address] ROBERT SCHMITZ MD [address] [place] [id number] 10-04-2024 19:14-0400 Body temperature 97.7 [degF] DR ROBERT Walls [address] [place] [id number] 10-04-2024 19:14-0400 Diastolic Blood Pressure Non-Invasive 90 mm[Hg] DR ROBERT SCHMITZ MD [address] [place] [id number] 10-04-2024 19:14-0400 Reason For Taking VItal Signs DR ROBERT SCHMITZ MD [address] [place] [id number] 10-04-2024 19:14-0400 Respiratory rate 16 /min DR ROBERT Walls [address] [place] [id number] 10-04-2024 19:14-0400 Systolic Blood Pressure Non-Invasive 138 mm[Hg] DR ROBERT SCHMITZ MD [address] [place] [id number] 10-04-2024 16:28-0400 Heart rate 72 /min DR ROBERT Walls [address] [place] [id number] 10-04-2024 15:31-0400 Heart rate 72 /min DR ROBERT Walls [address] [place] [id number] 10-04-2024 15:31-0400 Blood Pressure Cuff Size DR ROBERT SCHMITZ MD [address] [place] [id number] 10-04-2024 15:31-[address] ROBERT SCHMITZ MD [address] [place] [id number] 10-04-2024 15:31-[address] ROBERT SCHMITZ MD [address] [place] [id number] 10-04-2024 15:31-0400 Body temperature 97.52 [degF] DR ROBERT Walls [address] [place] [id number] 10-04-2024 15:31-0400 Diastolic Blood Pressure Non-Invasive 72 mm[Hg] DR ROBERT SCHMITZ MD [address] [place] [id number] 10-04-2024 15:31-0400 Respiratory rate 16 /min DR ROBERT Walls [address] [place] [id number] 10-04-2024 15:31-0400 Systolic Blood Pressure Non-Invasive 120 mm[Hg] DR ROBERT SCHMITZ MD [address] [place] [id number] 10-04-2024 15:02-0400 Blood Pressure Cuff Size DR ROBERT SCHMITZ MD [address] [place] [id number] 10-04-2024 15:02-[address] ROBERT SCHMITZ MD [address] [place] [id number] 10-04-2024 15:02-[address] ROBERT SCHMITZ MD [address] [place] [id number] 10-04-2024 15:02-0400 Body temperature 97.88 [degF] DR ROBERT Walls [address] [place] [id number] 10-04-2024 15:02-0400 Diastolic Blood Pressure Non-Invasive 78 mm[Hg] DR ROBERT SCHMITZ MD [address] [place] [id number] 10-04-2024 15:02-0400 Heart rate 73 /min DR ROBERT Walls [address] [place] [id number] 10-04-2024 15:02-0400 Systolic Blood Pressure Non-Invasive 116 mm[Hg] DR ROBERT SCHMITZ MD [address] [place] [id number] 10-04-2024 11:59-0400 Heart rate 61 /min DR ROBERT Walls [address] [place] [address] 10-04-2024 07:54-0400 Heart rate 66 /min DR ROBERT Walls [address] [place] [address] 10-04-2024 07:46-0400 Heart rate 64 /min DR ROBERT Walls [address] [place] [id number] 10-03-2024 16:05-0400 Heart rate 74 /min DR ROBERT Walls [address] [place] [id number] 10-02-2024 06:28-0400 Body height 177.[address] ROBERT Walls [address] [place] [id number] 10-02-2024 06:28-0400 Body weight 140.[address] ROBERT Walls [facility] 10-02-2024 06:28-0400 Body weight 44.38 kg/m2 DR ROBERT Walls [facility] 10-02-2024 05:00-0400 Diastolic Blood Pressure Non-Invasive 68 mm[Hg] DELORES DURESKA DO [facility] 10-02-2024 05:00-0400 Heart rate 116 /min DELORES DURESKA DO [facility] 10-02-2024 05:00-0400 Systolic Blood Pressure Non-Invasive 108 mm[Hg] DELORES DURESKA DO [facility] 10-02-2024 04:00-0400 Diastolic Blood Pressure Non-Invasive 70 mm[Hg] DELORES DURESKA DO [facility] 10-02-2024 04:00-0400 Heart rate 125 /min DELORES DURESKA DO [facility] 10-02-2024 04:00-0400 Systolic Blood Pressure Non-Invasive 101 mm[Hg] DELORES DURESKA DO [facility] 10-02-2024 02:31-0400 Body weight 143 kg DELORES DURESKA DO [facility] 10-02-2024 02:15-0400 Diastolic Blood Pressure Non-Invasive 90 mm[Hg] DELORES DURESKA DO [facility] 10-02-2024 02:15-0400 Heart rate 120 /min DELORES DURESKA DO [facility] 10-02-2024 02:15-0400 Respiratory rate 18 /min DELORES DURESKA DO [facility] 10-02-2024 02:15-0400 Systolic Blood Pressure Non-Invasive 106 mm[Hg] DELORES MURO DO [facility] 10-02-2024 00:27-0400 Body temperature 98.06 [degF] DELORES MURO DO [facility] 02-01-2024 16:08-0400 Heart rate 72 /min CINDY HERNANDEZ MD [facility] 02-01-2024 15:25-0400 Heart rate 68 /min CINDY HERNANDEZ MD [facility] 02-01-2024 15:25-0400 Respiratory rate 18 /min CINDY HERNANDEZ MD [facility] 02-01-2024 14:44-0400 Body temperature 98.6 [degF] CINDY HERNANDEZ MD [facility] 02-01-2024 14:44-0400 Diastolic Blood Pressure Non-Invasive 82 mm[Hg] CINDY HERNANDEZ MD [facility] 02-01-2024 14:44-0400 Heart rate 72 /min CINDY HERNANDEZ MD [facility] 02-01-2024 14:44-0400 Respiratory rate 18 /min CINDY HERNANDEZ MD [facility] 02-01-2024 14:44-0400 Systolic Blood Pressure Non-Invasive 119 mm[Hg] CINDY HERNANDEZ MD [facility] 02-01-2024 11:12-0400 Body temperature 98.24 [degF] CINDY HERNANDEZ MD [facility] 02-01-2024 11:12-0400 Diastolic Blood Pressure Non-Invasive 72 mm[Hg] CINDY HERNANDEZ MD [facility] 02-01-2024 11:12-0400 Heart rate 82 /min CINDY HERNANDEZ MD [facility] 02-01-2024 11:12-0400 Reason For Taking VItal Signs CINDY HERNANDEZ MD [facility] 02-01-2024 11:12-0400 Respiratory rate 18 /min CINDY HERNANDEZ MD [facility] 02-01-2024 11:12-0400 Systolic Blood Pressure Non-Invasive 101 mm[Hg] CINDY HERNANDEZ MD [facility] 02-01-2024 09:16-0400 Heart rate 79 /min CINDY HERNANDEZ MD [facility] 02-01-2024 09:04-0400 Blood Pressure Cuff Size CINDY HERNANDEZ MD [facility] 02-01-2024 09:04-0400 Blood Pressure Location CINDY HERNANDEZ MD [facility] 02-01-2024 09:04-0400 Blood Pressure Method CINDY HERNANDEZ MD [facility] 02-01-2024 09:04-0400 Body temperature 98.96 [degF] CINDY HERNANDEZ MD [facility] 02-01-2024 09:04-0400 Diastolic Blood Pressure Non-Invasive 64 mm[Hg] CINDY HERNANDEZ MD [facility] 02-01-2024 09:04-0400 Heart rate 84 /min CINDY HERNANDEZ MD [facility] 02-01-2024 09:04-0400 Reason For Taking VItal Signs CINDY HERNANDEZ MD [facility] 02-01-2024 09:04-0400 Systolic Blood Pressure Non-Invasive 105 mm[Hg] CINDY HERNANDEZ MD [facility] 02-01-2024 07:04-0400 Heart rate 60 /min CINDY HERNANDEZ MD [facility] 02-01-2024 03:35-0400 Heart rate 80 /min CINDY HERNANDEZ MD [facility] 02-01-2024 03:35-0400 Mean blood pressure 73 mm[Hg] CINDY HERNANDEZ MD [facility] 02-01-2024 03:35-0400 Reason For Taking VItal Signs CNIDY HERNANDEZ MD [facility] 01-31-2024 23:23-0400 Heart rate 84 /min CINDY HERNANDEZ MD [facility] 01-31-2024 23:23-0400 Mean blood pressure 74 mm[Hg] CINDY HERNANDEZ MD [facility] 01-31-2024 18:38-0400 Mean blood pressure 79 mm[Hg] CINDY HERNANDEZ MD [facility] 01-31-2024 02:56-0400 Body height 175 cm CINDY HERNANDEZ MD [facility] 01-31-2024 02:56-0400 Body weight 149.1 kg CINDY HERNANDEZ MD [facility] 01-31-2024 02:56-0400 Body weight 48.69 kg/m2 CINDY HERNANDEZ MD [facility] 01-31-2024 01:18-[address] SAMY JONES MD [facility] 01-31-2024 01:18-[address] SAMY JONES MD [facility] 01-31-2024 01:18-0400 Diastolic Blood Pressure Non-Invasive 71 mm[Hg] DR SAMY JONES MD [facility] 01-31-2024 01:18-0400 Heart rate 90 /min DR SAMY JONES MD [facility] 01-31-2024 01:18-0400 Mean blood pressure 82 mm[Hg] DR SAMY JONES MD [facility] 01-31-2024 01:18-0400 Reason For Taking VItal Signs DR SAMY JONES MD [facility] 01-31-2024 01:18-0400 Respiratory rate 18 /min DR SAMY JONES MD [facility] 01-31-2024 01:18-0400 Systolic Blood Pressure Non-Invasive 111 mm[Hg] DR SAMY JONES MD [facility] 01-31-2024 01:07-[address] SAMY JONES MD [facility] 01-31-2024 01:07-[address] SAMY JONES MD [facility] 01-31-2024 01:07-0400 Diastolic Blood Pressure Non-Invasive 61 mm[Hg] DR SAMY JONES MD [facility] 01-31-2024 01:07-0400 Heart rate 85 /min DR SAMY JONES MD [facility] 01-31-2024 01:07-0400 Mean blood pressure 71 mm[Hg] DR SAMY JONES MD [facility] 01-31-2024 01:07-0400 Reason For Taking VItal Signs DR SAMY JONES MD [facility] 01-31-2024 01:07-0400 Respiratory rate 12 /min DR SAMY JONES MD [facility] 01-31-2024 01:07-0400 Systolic Blood Pressure Non-Invasive 90 mm[Hg] DR SAMY JONES MD [facility] 01-31-2024 00:58-[address] SAMY JONES MD [facility] 01-31-2024 00:58-[address] SAMY JONES MD [facility] 01-31-2024 00:58-0400 Diastolic Blood Pressure Non-Invasive 64 mm[Hg] DR SAMY JONES MD [facility] 01-31-2024 00:58-0400 Heart rate 89 /min DR SAMY JONES MD [facility] 01-31-2024 00:58-0400 Mean blood pressure 76 mm[Hg] DR SAMY JONES MD [facility] 01-31-2024 00:58-0400 Reason For Taking VItal Signs DR SAMY JONES MD [facility] 01-31-2024 00:58-0400 Respiratory rate 13 /min DR SAMY JONES MD [facility] 01-31-2024 00:58-0400 Systolic Blood Pressure Non-Invasive 97 mm[Hg] DR SAMY JONES MD [facility] 01-30-2024 20:22-0400 SaO2% (BldA) [Mass fraction] 88.8 % DR SAMY JONES MD [facility] 01-30-2024 20:15-0400 Body height 175.[address] SAMY JONES MD [facility] 01-30-2024 20:15-0400 Body temperature 99.32 [degF] DR SAMY JONES MD [facility] 01-30-2024 20:15-0400 Body weight 145.[address] SAMY JONES MD [facility] 01-30-2024 20:15-0400 Heart rate 133 /min DR SAMY JONES MD [facility] 08-09-2023 21:07-0400 Blood Pressure Cuff Size DR OLLIE BROOKE MD [facility] 08-09-2023 21:07-[address] OLLIE BROOKE MD [facility] 08-09-2023 21:07-[address] OLLIE BROOKE MD [facility] 08-09-2023 21:07-0400 Body height 177.[address] OLLIE BROOKE MD [facility] 08-09-2023 21:07-0400 Body temperature 96.98 [degF] DR OLLIE BROOKE MD [facility] 08-09-2023 21:07-0400 Body weight 155.[address] OLLIE BROOKE MD [facility] 08-09-2023 21:07-0400 Diastolic Blood Pressure Non-Invasive 78 mm[Hg] DR OLLIE BROOKE MD [facility] 08-09-2023 21:07-0400 Heart rate 70 /min DR OLLIE BROOKE MD [facility] 08-09-2023 21:07-0400 Reason For Taking VItal Signs DR OLLIE BROOKE MD [facility] 08-09-2023 21:07-0400 Respiratory rate 22 /min DR OLLIE BROOKE MD [facility] 08-09-2023 21:07-0400 Systolic Blood Pressure Non-Invasive 121 mm[Hg] DR OLLIE BROOKE MD [facility] 06-13-2023 01:18-0500 Diastolic Blood Pressure Non-Invasive 78 mm[Hg] DEMI HUSTON MD [facility] 06-13-2023 01:18-0500 Heart rate 80 /min DEMI HUSTON MD [facility] 06-13-2023 01:18-0500 Respiratory rate 18 /min DEMI HUSTON MD [facility] 06-13-2023 01:18-0500 Systolic Blood Pressure Non-Invasive 142 mm[Hg] DEMI HUSTON MD [facility] 06-13-2023 00:35-0500 Heart rate 74 /min DEMI HUSTON MD [facility] 06-13-2023 00:35-0500 Respiratory rate 20 /min DEMI HUSTON MD [facility] 06-13-2023 00:03-0500 Body temperature 97.7 [degF] DEMI HUSTON MD [facility] 06-13-2023 00:03-0500 Diastolic Blood Pressure Non-Invasive 84 mm[Hg] DEMI HUSTON MD [facility] 06-13-2023 00:03-0500 Heart rate 67 /min DEMI HUSTON MD [facility] 06-13-2023 00:03-0500 Respiratory rate 20 /min DEMI HUSTON MD [facility] 06-13-2023 00:03-0500 Systolic Blood Pressure Non-Invasive 153 mm[Hg] DEMI HUSTON MD [facility] 06-09-2023 21:35-0500 Heart rate 60 /min MOY WATTS MD [address] 06-09-2023 21:35-0500 Reason For Taking VItal Signs MOY WATTS MD [address] 06-09-2023 21:35-0500 Respiratory rate 18 /min MOY WATTS MD [address] 06-09-2023 19:40-0500 Blood Pressure Cuff Size MOY WATTS MD [address] 06-09-2023 19:40-0500 Blood Pressure Location MOY WATTS MD [address] [place] [id number] 06-09-2023 19:40-0500 Blood Pressure Method MOY WATTS MD [address] 06-09-2023 19:40-0500 Body temperature 98.24 [degF] MOY WATTS MD [address] 06-09-2023 19:40-0500 Diastolic Blood Pressure Non-Invasive 66 mm[Hg] MOY WATTS MD [address] 06-09-2023 19:40-0500 Heart rate 63 /min MOY WATTS MD [address] [place] [id number] 06-09-2023 19:40-0500 Reason For Taking VItal Signs MOY WATTS MD [address] [place] [id number] 06-09-2023 19:40-0500 Respiratory rate 18 /min MOY WATTS MD [address] [place] [id number] 06-09-2023 19:40-0500 Systolic Blood Pressure Non-Invasive 112 mm[Hg] MOY WATTS MD [address] [place] [id number] 06-09-2023 19:29-0500 Heart rate 63 /min MOY WATTS MD [address] [place] [id number] 06-09-2023 16:56-0500 Heart rate 66 /min MOY WATTS MD [address] [place] [id number] 06-09-2023 16:04-0500 Blood Pressure Cuff Size MOY WATTS MD [address] [place] [id number] 06-09-2023 16:04-0500 Blood Pressure Location MOY WATTS MD [address] [place] [id number] 06-09-2023 16:04-0500 Blood Pressure Method MOY WATTS MD [address] [place] [id number] 06-09-2023 16:04-0500 Body temperature 97.88 [degF] MOY WATTS MD [address] [place] [id number] 06-09-2023 16:04-0500 Diastolic Blood Pressure Non-Invasive 78 mm[Hg] MOY WATTS MD [address] [place] [id number] 06-09-2023 16:04-0500 Reason For Taking VItal Signs MOY WATTS MD [address] [place] [id number] 06-09-2023 16:04-0500 Respiratory rate 18 /min MOY WATTS MD [address] [place] [id number] 06-09-2023 16:04-0500 Systolic Blood Pressure Non-Invasive 138 mm[Hg] MOY WATTS MD [address] [place] [id number] 06-09-2023 11:17-0500 Blood Pressure Cuff Size MOY WATTS MD [address] [place] [id number] 06-09-2023 11:17-0500 Blood Pressure Location MOY WATTS MD [address] [place] [id number] 06-09-2023 11:17-0500 Blood Pressure Method MOY WATTS MD [address] [place] [id number] 06-09-2023 11:17-0500 Body temperature 97.88 [degF] MOY WATTS MD [address] [place] [id number] 06-09-2023 11:17-0500 Diastolic Blood Pressure Non-Invasive 64 mm[Hg] MOY WATTS MD [address] [place] [id number] 06-09-2023 11:17-0500 Systolic Blood Pressure Non-Invasive 126 mm[Hg] MOY WATTS MD [address] [place] [id number] 06-09-2023 08:54-0500 Heart rate 66 /min MOY WATTS MD [address] [place] [id number] 06-08-2023 23:49-0500 Mean blood pressure 77 mm[Hg] MOY WATTS MD [address] [place] [id number] 06-08-2023 17:50-0500 Heart rate 65 /min MOY WATTS MD [address] [place] [id number] 06-08-2023 14:06-0500 Heart rate 58 /min MOY WATTS MD [facility] 06-08-2023 07:05-0500 Mean blood pressure 90 mm[Hg] MOY WATTS MD [facility] 06-07-2023 13:36-0500 Body height 176 cm MOY WATTS MD [facility] 06-07-2023 13:36-0500 Body weight 152.9 kg MOY WATTS MD [facility] 06-07-2023 13:36-0500 Body weight 49.36 kg/m2 MOY WATTS MD [facility] 05-05-2023 20:50-0500 Diastolic Blood Pressure Non-Invasive 79 mm[Hg] DEMI HUSTON MD [facility] 05-05-2023 20:50-0500 Heart rate 84 /min DEMI HUSTON MD [facility] 05-05-2023 20:50-0500 Respiratory rate 20 /min DEMI HUSTON MD [facility] 05-05-2023 20:50-0500 Systolic Blood Pressure Non-Invasive 132 mm[Hg] DEMI HUSTON MD [facility] 05-05-2023 17:16-0500 Body height 175.3 cm DEMI HUSTON MD [facility] 05-05-2023 17:16-0500 Body temperature 97.88 [degF] DEMI HUSTON MD [facility] 05-05-2023 17:16-0500 Body weight 144.4 kg DEMI HUSTON MD [facility] 05-05-2023 17:16-0500 Diastolic Blood Pressure Non-Invasive 88 mm[Hg] DEMI HUSTON MD [facility] 05-05-2023 17:16-0500 Heart rate 68 /min DEMI HUSTON MD [facility] 05-05-2023 17:16-0500 Respiratory rate 20 /min DEMI HUSTON MD [facility] 05-05-2023 17:16-0500 Systolic Blood Pressure Non-Invasive 142 mm[Hg] DEMI HUSTON MD [facility] 02-12-2023 07:06-0400 Body height 175.26 cm [facility] 02-12-2023 07:06-0400 Body mass index (BMI) [Ratio] 49.5 kg/m2 [facility] 02-12-2023 07:06-0400 Body temperature 97.8 [degF] [facility] 02-12-2023 07:06-0400 Body weight 152.1 kg [facility] 02-12-2023 07:06-0400 Diastolic blood pressure 101 mm[Hg] [facility] 02-12-2023 07:06-0400 Heart rate 98 /min [facility] 02-12-2023 07:06-0400 Respiratory rate 16 /min [facility] 02-12-2023 07:06-0400 SaO2% (BldA) [Mass fraction] 95 % [facility] 02-12-2023 07:06-0400 Systolic blood pressure 132 mm[Hg] [facility] 12-23-2022 07:51-0400 Diastolic Blood Pressure Non-Invasive 68 1 MOY WATTS MD [facility] 12-23-2022 07:51-0400 Heart rate 61 /min MOY WATTS MD [facility] 12-23-2022 07:51-0400 Respiratory rate 12 /min MOY WATTS MD [facility] 12-23-2022 07:51-0400 Systolic Blood Pressure Non-Invasive 106 1 MOY WATTS MD [facility] 12-23-2022 07:39-0400 Diastolic Blood Pressure Non-Invasive 60 1 MOY WATTS MD [facility] 12-23-2022 07:39-0400 Heart rate 64 /min MOY WATTS MD [facility] 12-23-2022 07:39-0400 Respiratory rate 20 /min MOY WATTS MD [facility] 12-23-2022 07:39-0400 Systolic Blood Pressure Non-Invasive 97 1 MOY WATTS MD [facility] 12-23-2022 07:34-0400 Diastolic Blood Pressure Non-Invasive 59 1 MOY WATTS MD [facility] 12-23-2022 07:34-0400 Heart rate 62 /min MOY WATTS MD [facility] 12-23-2022 07:34-0400 Respiratory rate 16 /min MOY WATTS MD [facility] 12-23-2022 07:34-0400 Systolic Blood Pressure Non-Invasive 74 1 MOY WATTS MD [facility] 12-23-2022 07:24-0400 Body temperature 97.34 [degF] MOY WATTS MD [facility] 12-23-2022 07:20-0400 Heart rate 73 /min MOY WATTS MD [facility] 12-23-2022 07:20-0400 Respiratory Rate - Anes 22 br/min MOY WATTS MD [facility] 12-23-2022 07:15-0400 Heart rate 91 /min MOY WATTS MD [facility] 12-23-2022 07:15-0400 Respiratory Rate - Anes 18 br/min MOY WATTS MD [facility] 12-23-2022 06:37-0400 Body height 175.3 cm MOY WATTS MD [facility] 12-23-2022 06:34-0400 Body height 175.3 cm MOY WATTS MD [facility] 12-23-2022 06:34-0400 Body temperature 95.54 [degF] MOY WATTS MD [facility] 12-23-2022 06:34-0400 Body weight 144 kg MOY WATTS MD [facility] 10-27-2022 06:49-0400 Body temperature 97.7 [degF] DR OLLIE BROOKE MD [facility] 06-01-2023 06:49-0400 Diastolic Blood Pressure Non-Invasive [address] OLLIE BROOKE MD [facility] 10-27-2022 06:49-0400 Heart rate 103 /min DR OLLIE BROOKE MD [facility] 10-27-2022 06:49-0400 Respiratory rate 22 /min DR OLLIE BROOKE MD [facility] 10-27-2022 06:49-0400 Systolic Blood Pressure Non-Invasive [address] OLLIE BROOKE MD [facility] 10-27-2022 06:14-0400 Body temperature 98.06 [degF] DR OLLIE BROOKE MD [facility] 10-27-2022 06:14-0400 Diastolic Blood Pressure Non-Invasive [address] OLLIE BROOKE MD [facility] 10-27-2022 06:14-0400 Heart rate 105 /min DR OLLIE BROOKE MD [facility] 10-27-2022 06:14-0400 Respiratory rate 22 /min DR OLLIE BROOKE MD [facility] 10-27-2022 06:14-0400 Systolic Blood Pressure Non-Invasive [address] OLLIE BROOKE MD [facility] 10-27-2022 05:05-0400 Body height 175.[address] OLLIE BROOKE MD [facility] 10-27-2022 05:05-0400 Body temperature 98.06 [degF] DR OLLIE BROOKE MD [facility] 10-27-2022 05:05-0400 Body weight [address] OLLIE BROOKE MD [facility] 10-27-2022 05:05-0400 Diastolic Blood Pressure Non-Invasive [address] OLLIE BROOKE MD [facility] 10-27-2022 05:05-0400 Heart rate 88 /min DR OLLIE BROOKE MD [facility] 10-27-2022 05:05-0400 Respiratory rate 22 /min DR OLLIE BROOKE MD [facility] 10-27-2022 05:05-0400 Systolic Blood Pressure Non-Invasive [address] OLLIE BROOKE MD [facility] 10-25-2022 01:00-0400 Heart rate 99 /min DEMI HUSTON MD [facility] 10-25-2022 01:00-0400 Systolic Blood Pressure Non-Invasive 139 1 DEMI HUSTON MD [facility] 10-25-2022 00:00-0400 Diastolic Blood Pressure Non-Invasive 94 1 DEMI HUSTON MD [facility] 10-25-2022 00:00-0400 Heart rate 102 /min DEMI HUSTON MD [facility] 10-25-2022 00:00-0400 Respiratory rate 18 /min DEMI HUSTON MD [facility] 10-25-2022 00:00-0400 Systolic Blood Pressure Non-Invasive 132 1 DEMI HUSTON MD [facility] 10-24-2022 23:21-0400 Body height 175.3 cm DEMI HUSTON MD [facility] 10-24-2022 23:21-0400 Body temperature 98.24 [degF] DEMI HUSTON MD [facility] 10-24-2022 23:21-0400 Body weight 139 kg DEMI HUSTON MD [facility] 10-24-2022 23:21-0400 Diastolic Blood Pressure Non-Invasive 99 1 DEMI HUSTON MD [facility] 10-24-2022 23:21-0400 Heart rate 105 /min DEMI HUSTON MD [facility] 10-24-2022 23:21-0400 Respiratory rate 19 /min DEMI HUSTON MD [facility] 10-24-2022 23:21-0400 Systolic Blood Pressure Non-Invasive 146 1 DEMI HUSTON MD [facility] 10-23-2022 10:51-0400 Diastolic blood pressure 76 mm[Hg] [facility] 10-23-2022 10:51-0400 Heart rate 73 /min [facility] 10-23-2022 10:51-0400 Respiratory rate 15 /min [facility] 10-23-2022 10:51-0400 SaO2% (BldA) [Mass fraction] 98 % [facility] 10-23-2022 10:51-0400 Systolic blood pressure 148 mm[Hg] [facility] 10-23-2022 05:58-0400 Body height 175.26 cm [facility] 10-23-2022 05:58-0400 Body mass index (BMI) [Ratio] 47.7 kg/m2 [facility] 10-23-2022 05:58-0400 Body temperature 97.6 [degF] [facility] 10-23-2022 05:58-0400 Body weight 146.8 kg [facility] 07-15-2022 21:40-0500 Diastolic Blood Pressure Non-Invasive 85 1 JEREMIE MCCORMACK MD [facility] 07-15-2022 21:40-0500 Heart rate 72 /min JEREMIE MCCORMACK MD [facility] 07-15-2022 21:40-0500 Respiratory rate 18 /min JEREMIE MCCORMACK MD [facility] 07-15-2022 21:40-0500 Systolic Blood Pressure Non-Invasive 148 1 JEREMIE MCCORMACK MD [facility] 07-15-2022 21:10-0500 Reason For Taking VItal Signs JEREMIE MCCORMACK MD [facility] 07-15-2022 20:42-0500 Body temperature 98.06 [degF] JEREMIE MCCORMACK MD [facility] 07-15-2022 20:42-0500 Diastolic Blood Pressure Non-Invasive 95 1 JEREMIE MCCORMACK MD [facility] 07-15-2022 20:42-0500 Heart rate 81 /min JEREMIE MCCORMACK MD [facility] 07-15-2022 20:42-0500 Respiratory rate 18 /min JEREMIE MCCORMACK MD [facility] 07-15-2022 20:42-0500 Systolic Blood Pressure Non-Invasive 149 1 JEREMIE MCCORMACK MD [facility] 07-11-2022 08:21-0500 Body height 175.3 cm MALORIE PEGUERO MD [facility] 07-11-2022 08:21-0500 Body temperature 97.7 [degF] MALORIE PEGUERO MD [facility] 07-11-2022 08:21-0500 Body weight 148.6 kg MALORIE PEGUERO MD [facility] 07-11-2022 08:21-0500 Diastolic Blood Pressure Non-Invasive 80 1 MALORIE PEGUERO MD [facility] 07-11-2022 08:21-0500 Heart rate 88 /min MALORIE PEGUERO MD [facility] 07-11-2022 08:21-0500 Respiratory rate 24 /min MALORIE PEGUERO MD [facility] 07-11-2022 08:21-0500 Systolic Blood Pressure Non-Invasive 150 1 MALORIE PEGUERO MD [facility] Encounters Encounter Date Encounter Type Care Provider Facility Start: 11-04-2024 ambulatory Isadora Correa BANKING TEACHER Facil ity:[facility] Start: 10-30-2024 ambulatory Isadora Correa BANKING TEACHER Facil ity:[facility] Start: 10-28-2024 ambulatory Isadora Correa BANKING TEACHER Facil ity:[facility] Start: 10-24-2024 ambulatory Dolly Nathanesperanza [place] Facili ty:[facility] Start: 10-16-2024 End: 10-23-2024 Evaluation and management of inpatient NANI QUINTANA DO [facility] Start: 10-16-2024 End: 10-16-2024 Emergency department patient visit JAKE MAXWELL [facility] Start: 10-02-2024 End: 10-04-2024 Evaluation and management of inpatient DR ROBERT SCHMITZ MD [facility] Start: 10-02-2024 End: 10-02-2024 Emergency department patient visit DELORES MURO DO [facility] Start: 09-05-2024 ambulatory ISADORA CORREA CREDIT PROCESSOR-[employer]STE DISPOSAL LEAKAGE TE[employer] Facility:[facility] Start: 08-29-2024 End: 08-29-2024 Emergency department patient visit CIRILO AMANDA [facility] Start: 08-27-2024 End: 08-27-2024 ambulatory ISADORA CORREA CREDIT PROCESSOR-[employer]STE DIS[employer]AL LEAKAGE TESTER [facility] Start: 08-13-2024 End: 08-13-2024 Emergency department patient visit DR WILNER JOE MD Facility:[facility] Start: 05-14-2024 End: 05-14-2024 ambulatory ISADORA CORREA CREDIT PROCESSOR-[employer] DIS[employer]AL LEAKAGE TESTER Facility:[facility] Start: 05-14-2024 End: 05-14-2024 Patient encounter procedure ISADORA CORREA CREDIT PROCESSOR-WASTE DISPOSAL LEAKAGE TESTER [facility] Start: 03-25-2024 ambulatory ISADORA CORREA CREDIT PROCESSOR-WASTE DISPOSAL LEAKAGE TESTER Facility:[facility] Start: 03-25-2024 End: 03-29-2024 ambulatory HELEN YANES CREDIT PROCESSOR-WASTE DISPOSAL LEAKAGE TESTER [facility] Start: 03-25-2024 End: 03-29-2024 Outreach Lab HELEN YANES CREDIT PROCESSOR-WASTE DISPOSAL LEAKAGE TESTER [facility] Start: 02-16-2024 End: 02-16-2024 ambulatory ISADORA CORREA CREDIT PROCESSOR-WASTE DISPOSAL LEAKAGE TESTER Facility:[facility] Start: 02-16-2024 End: 02-16-2024 Patient encounter procedure ISADORA CORREA CREDIT PROCESSOR-WASTE DISPOSAL LEAKAGE TESTER [facility] Start: 02-12-2024 End: 02-12-2024 ambulatory ISADORA CORREA CREDIT PROCESSOR-WASTE DISPOSAL LEAKAGE TESTER Facility:[facility] Start: 02-12-2024 End: 02-12-2024 Patient encounter procedure ISADORA CORREA CREDIT PROCESSOR-WASTE DISPOSAL LEAKAGE TESTER [facility] Start: 01-31-2024 End: 02-01-2024 Evaluation and management of inpatient ISADORA CORREA Facility:[facility] Start: 01-30-2024 End: 01-31-2024 Emergency department patient visit DR SAMY JONES MD [facility] Start: 10-11-2023 End: 10-11-2023 ambulatory [facility] Start: 08-22-2023 End: 08-22-2023 ambulatory ISADORADANE CORREA Facility:[facility] Start: 08-22-2023 End: 08-22-2023 Patient encounter procedure ISADORA CORREA CREDIT PROCESSOR-WASTE DISPOSAL LEAKAGE TESTER [facility] Start: 08-09-2023 End: 08-09-2023 Emergency department patient visit DR OLLIE BROOKE MD [facility] Start: 08-08-2023 End: 08-12-2023 ambulatory ISADORA CORREA Facility:[facility] Start: 08-08-2023 End: 08-12-2023 Outreach Lab ISADORA CORREA CREDIT PROCESSOR-WASTE DISPOSAL LEAKAGE TESTER [facility] Start: 08-08-2023 End: 08-08-2023 ambulatory ISADORADANE CORREA Facility:[facility] Start: 06-13-2023 End: 06-13-2023 Emergency department patient visit DEMI HUSTON MD [facility] Start: 06-07-2023 End: 06-09-2023 Evaluation and management of inpatient MOY WATTS MD [facility] Start: 05-05-2023 End: 05-05-2023 Emergency department patient visit DEMI HUSTON MD [facility] Start: 05-03-2023 ambulatory JAD Coombs Facility:A Start: 04-03-2023 End: 04-03-2023 ambulatory ISADORA CORREA Facility:[facility] Start: 04-03-2023 End: 04-03-2023 Patient encounter procedure JONNY DARIANAJOANNAEMELYN CREDIT PROCESSOR-WASTE DISPOSAL LEAKAGE TESTER [facility] Start: 03-22-2023 End: 03-22-2023 ambulatory ISADORA CORREA Facility:[facility] Start: 03-14-2023 ambulatory ISADORA CORREA Facility [facility] Start: 02-22-[address] [facility] Start: 02-12-2023 End: 02-12-2023 Emergency department patient visit [facility] Work Phone: Start: 02-01-2023 End: 02-01-2023 Patient encounter procedure ISADORA CORREA CREDIT PROCESSOR-WASTE DISPOSAL LEAKAGE TESTER [facility] Start: 12-23-2022 End: 12-23-2022 Minor Procedure MOY WATTS MD [facility] Start: 11-11-2022 End: 11-11-2022 Patient encounter procedure MOY WATTS MD [facility] Start: 10-27-2022 End: 10-27-2022 Emergency department patient visit DR OLLIE BROOKE MD [facility] Start: 10-24-2022 End: 10-25-2022 Emergency department patient visit DEMI HUSTON MD [facility] Start: 10-23-2022 End: 10-23-2022 Emergency department patient visit [facility] Start: 07-15-2022 End: 07-15-2022 Emergency department patient visit JEREMIE MCCORMACK MD [facility] Start: 07-11-2022 End: 07-11-2022 Emergency department patient visit MALORIE PEGUERO MD [facility] Start: 07-05-2022 End: 07-05-[address] [facility] Start: 04-12-2022 End: 04-12-[address] [facility] Start: 03-11-2022 [facility] Start: 01-12-2022 End: 01-12-[address] [facility] Start: 08-24-[facility] Start: 08-17-2021 End: 08-18-2021 ambulatory [facility] Start: 08-02-2021 ambulatory [facility] Care Services Procedures Date Procedure Procedure Detail Performing Clinician Start: 03-25-2024 Excision HELEN BALDERAS CREDIT PROCESSOR-WASTE DISPOSAL LEAKAGE TESTER Comment on above: excision of multilob ulated lipomatous mass right forearm Start: 01-31-2024 Echocardiography CHUN Anali SUNNY CREDIT PROCESSOR-WASTE DISPOSAL LEAKAGE TESTER Start: 02-12-2023 SARS-CoV-2 & FLU Ant igen (Rapid) Start: 02-12-2023 Viral antigen assay Start: 02-12-2023 Plain chest X-ray Start: 12-23-2022 Cardioversion JAD WATTS MD Start: 11-11-2022 Echocardiography JONNY HOFF CREDIT PROCESSOR-WASTE DISPOSAL LEAKAGE TESTER Comment on above: 1. Left ventricle: T [...] Date Care Activity Detail Author Start: 10-23-2022 [facility] Patient Education [facility] Work Phone: Patient referral [facility] Work Phone: Immunizations Immunization Date Immunization Notes Care Provider Fa delilah 04-12-2022 influenza virus vaccine, unspecified formulation MOY WATTS MD [facility] Comment on above: Result Comment: 2023: VIS DATE: 01/01/2021 04-12-2022 pneumococcal conjugate vaccine, 13 valent MOY WATTS MD [facility] Comment on above: Result Comment: 2023: VIS DATE: 07/02/2021 09-11-2020 SARS-CoV-2 (COVID-19 ) mRNA-1273 vaccine MOY WATTS MD [facility] 08-14-2020 SARS-CoV-2 (COVID-19 ) mRNA-1273 vaccine MOY WATTS MD [facility] Payers Date Payer Category Payer Self-pay 2024 Medicaid [id number] 2024 Private Health Insurance [id number] [id number] 2023 Medicaid [id number] 1971 Unknown [id number] 2.16.8 40.1.960662.3.579.2.1076 1971 Unknown [id number] 2.16. 840.1.047580.3.579.2.297 1971 Unknown [id number] 2.16.8 40.1.676549.3.579.2.627 1971 Unknown [id number] 2.16.8 40.1.227383.3.579.2.627 1971 Unknown [id number] 2.16.8 40.1.733793.3.579.2.627 1971 Unknown [id number] 2.16.8 40.1.711969.3.579.2.7 1971 Unknown [id number] 2.16.8 40.1.595758.3.579.2.7 1971 Unknown [id number] 2.16.8 40.1.343581.3.579.2.7 1971 Unknown [id number] 2.16.8 40.1.416011.3.579.2.7 1971 Unknown [id number] 2.16.8 40.1.799706.3.579.2.7 1971 Unknown [id number] 2.16.8 40.1.906245.3.579.2.627 1971 Unknown [id number] 2.16.8 40.1.739790.3.579.2.627 1971 Unknown [id number] 2.16.8 40.1.134654.3.579.2.7 1971 Unknown [id number] 2.16.8 40.1.841412.3.579.2.7 1971 Unknown [id number] 2.16.8 40.1.152215.3.579.2.627 1971 Unknown [id number] 2.16.8 40.1.011108.3.579.2.627 1971 Unknown [id number] 2.16.8 40.1.058102.3.579.2.627 1971 Unknown [id number] 2.16.8 40.1.712338.3.579.2.627 1971 Unknown [id number] 2.16.8 40.1.583852.3.579.2.627 1971 Unknown [id number] 2.16.8 40.1.727256.3.579.2.7 1971 Unknown [id number] 2.16.8 40.1.179245.3.579.2. 1971 Unknown [id number] 2.16.8 40.1.294214.3.579.2.7 1971 Unknown [id number] 2.16.8 40.1.017284.3.579.2. 1971 Unknown [id number] 2.16.8 40.1.428187.3.579.2.7 1971 Unknown [id number] 2.16.8 40.1.194672.3.579.2.7 1971 Unknown [id number] 2.16.8 40.1.324716.3.579.2.7 1971 Unknown [id number] 2.16.8 40.1.641086.3.579.2.627 1971 Unknown [id number] 2.16.8 40.1.451309.3.579.2.651 1971 Unknown [id number] 2.16. 840.1.834986.3.579.2.627 1971 Unknown [id number] 2.16.8 40.1.587519.3.579.2.627 1971 Unknown [id number] 2.16.8 40.1.521189.3.579.2.627 Unknown [id number] Unknown [id number] 2.16.8 40.1.725014.3.579.2.443 Unknown [id number] 2.16.8 40.1.004109.3.579.2.462 Unknown [id number] 2.16.8 40.1.521972.3.579.2.462 Unknown [id number] 2.16.8 40.1.851062.3.579.2.462 Unknown [id number] 2.16.8 40.1.069371.3.579.2.462 Social History Date Type Detail Facility Start: 07-11-2022 End: 01-12-2024 Tobacco smoking status Ex-smoker (finding) [facility] Start: 1970 Sex Assigned At Male A [facility] Start: 10-23-2022 End: 02-12-2023 Tobacco smoking status [facility] Unknown if ever smoked [facility] Tobacco Nicotine Use: sn uff. Type: Oral (Snuff, Chew). [facility] Comment on above: using NicoDerm patch Stopped chewing snuf f October 2022 Tobacco smoking status [facility] Start: 06-07-2023 End: 08-08-2023 Tobacco smoking status Former smokeless tobacco user, quit more than 30 days ago [facility] Start: 07-11-2022 Sex Male (finding) [facility] Medical Equipment Procedure Code Equipment Code Equipment Origin al Text Equipment Identifier Dates See Instructions , 1 bottle of 100 Test once daily, # 1 EA, 11 Refill(s), Pharmacy: [facility], 177.8, cm, 11/28/23 13:54:00 EDT, Height, 151.4, kg, 11/28/23 13:54:00 EDT, Dosing Weight Start: 12-12-2023 See Instructions , qs 1 month supply Test once daily, # 1 EA, 11 Refill(s), Pharmacy: [facility], 177.8, cm, 11/28/23 13:54:00 EDT, Height, 151.4, kg, 11/28/23 13:54:00 EDT, Dosing Weight Start: 12-12-2023 See Instructions , 1 bottle of 100 Test once daily, # 1 EA, 11 Refill(s), Pharmacy: [facility], 177.8, cm, 11/28/23 13:54:00 EDT, Height, 151.4, kg, 11/28/23 13:54:00 EDT, Dosing Weight Start: 12-12-2023 See Instructions , qs 1 month supply Test once daily, # 1 EA, 11 Refill(s), Pharmacy: [facility], 177.8, cm, 11/28/23 13:54:00 EDT, Height, 151.4, kg, 11/28/23 13:54:00 EDT, Dosing Weight Start: 12-12-2023 See Instructions , 1 bottle of 100 Test once daily, # 1 EA, 11 Refill(s), Pharmacy: [facility], 177.8, cm, 11/28/23 13:54:00 EDT, Height, 151.4, kg, 11/28/23 13:54:00 EDT, Dosing Weight Start: 12-12-2023 See Instructions , qs 1 month supply Test once daily, # 1 EA, 11 Refill(s), Pharmacy: [facility], 177.8, cm, 11/28/23 13:54:00 EDT, Height, 151.4, kg, 11/28/23 13:54:00 EDT, Dosing Weight Start: 12-12-2023 See Instructions , 1 bottle of 100 Test once daily, # 1 EA, 11 Refill(s), Pharmacy: [facility], 177.8, cm, 11/28/23 13:54:00 EDT, Height, 151.4, kg, 11/28/23 13:54:00 EDT, Dosing Weight Start: 12-12-2023 See Instructions , qs 1 month supply Test once daily, # 1 EA, 11 Refill(s), Pharmacy: [facility], 177.8, cm, 11/28/23 13:54:00 EDT, Height, 151.4, kg, 11/28/23 13:54:00 EDT, Dosing Weight Start: 12-12-2023 See Instructions , 1 bottle of 100 Test once daily, # 1 EA, 11 Refill(s), Pharmacy: [facility], 177.8, cm, 11/28/23 13:54:00 EDT, Height, 151.4, kg, 11/28/23 13:54:00 EDT, Dosing Weight Start: 12-12-2023 See Instructions , qs 1 month supply Test once daily, # 1 EA, 11 Refill(s), Pharmacy: [facility], 177.8, cm, 11/28/23 13:54:00 EDT, Height, 151.4, kg, 11/28/23 13:54:00 EDT, Dosing Weight Start: 12-12-2023 See Instructions , 1 bottle of 100 Test once daily, # 1 EA, 11 Refill(s), Pharmacy: [facility], 177.8, cm, 11/28/23 13:54:00 EDT, Height, 151.4, kg, 11/28/23 13:54:00 EDT, Dosing Weight Start: 12-12-2023 See Instructions , qs 1 month supply Test once daily, # 1 EA, 11 Refill(s), Pharmacy: [facility], 177.8, cm, 11/28/23 13:54:00 EDT, Height, 151.4, kg, 11/28/23 13:54:00 EDT, Dosing Weight Start: 12-12-2023 Extremity Assignment Manager al Fixator Application L Unknown 10/17/24 Unknown Unknown FDA Start: 10-17-2024 Extremity Assignment Manager al Fixator Application L Unknown 10/17/24 Unknown Unknown FDA Start: 10-17-2024 Extremity Assignment Manager al Fixator Application L Unknown 10/17/24 Unknown Unknown FDA Start: 10-17-2024 Extremity Assignment Manager al Fixator Application L Unknown 10/17/24 Unknown Unknown FDA Start: 10-17-2024 Extremity Assignment Manager al Fixator Application L Unknown 10/17/24 Unknown Unknown FDA Start: 10-17-2024 Extremity Assignment Manager al Fixator Application L Unknown 10/17/24 Unknown Unknown FDA Start: 10-17-2024 Functional Status Date Assessment Result Facility 10-04-2024 Functional Status Room located n ear nursing station, Door open, Bathroom light on, Non-Slip footwear, Room check performed [facility] 10-04-2024 Functional Status [facility] 10-04-2024 Functional Status [facility] 10-04-2024 Functional Status Breakfast Percent 80 [facility] 10-04-2024 Functional Status [facility] 10-03-2024 [facility] Functional Status Sequential Com pression Device bilateral knee high removed/off [facility] 10-02-2024 Functional Status ID band on, Call device within reach, Bed in low position [facility] 02-01-2024 Functional Status Room check performed [facility] 02-01-2024 Functional Status [facility] 02-01-2024 Functional Status [facility] 02-01-2024 Functional Status Maintained [facility] 01-31-2024 Functional Status [facility] 01-31-2024 Functional Status 7pm-7am [facility] 01-31-2024 Functional Status Living Situati on Lives with family [facility] 01-31-2024 Functional Status Skin Care Prev entative Intervention(s) heel(s)s elevated, padded oxygen tubing, turn and position system [facility] 01-31-2024 Functional Status [facility] 01-31-2024 Functional Status Independent [facility] 01-30-2024 Functional Status Standard Safet y ID band on, Call device within reach, Bed in low position, Wheels locked, Upper/Half-Length side-rails up, personal items within reach, Bedside Cart Locked, Visitor at bedside [facility] 08-09-2023 Functional Status Awake, Resting [facility] 06-13-2023 Functional Status ID band on, Call device within reach [facility] 06-09-2023 Functional Status Room check performed [facility] 06-09-2023 Functional Status [facility] 06-09-2023 Functional Status [facility] 06-09-2023 Functional Status [facility] 06-08-2023 Functional Status Home independe ntly, Lives with significant other [facility] 06-08-2023 Functional Status Skin Care Prev entative Intervention(s) padded oxygen tubing [facility] 06-08-2023 Functional Status bilateral knee high removed/off [facility] 06-07-2023 Functional Status Sensory Deficits None A [facility] 05-05-2023 Functional Status Assistive Device None [facility] 05-05-2023 Functional Status Standard Safet y ID band on, Call device within reach, Bed in low position, Wheels locked, Visitor at bedside [facility] 12-23-2022 Functional Status Ambulating in room, Awake [facility] 12-23-2022 Functional Status Maintained [facility] 10-27-2022 Functional Status Room check performed [facility] 10-27-2022 Functional Status [facility] 10-25-2022 Functional Status Independent [facility] 10-24-2022 Functional Status Standard Safet y ID band on, Call device within reach, Bed in low position, Wheels locked, Upper/Half-Length side-rails up, personal items within reach, Visitor at bedside [facility] 07-15-2022 Functional Status Room check performed [facility] 07-11-2022 Functional Status Up ad traci [facility] Mental Status Date Assessment Result Facility 10-04-2024 Mental Status Oriented x [address] [facility] 10-04-[address] [facility] 10-04-[address] [facility] 10-02-2024 Mental Status Orientation Oriented x 4 [facility] 02-01-2024 Mental Status Orientation Oriented x 4 [facility] 02-01-[address] [facility] 01-31-[address] [facility] 01-31-[address] [facility] 01-30-2024 Mental Status Orientation Oriented x 4 [facility] 08-09-2023 Mental Status Oriented x 4 [facility] 06-13-2023 Mental Status Orientation Oriented x 4 [facility] 06-09-2023 Mental Status Oriented x [address] [facility] 06-09-[address] [facility] 06-09-[address] [facility] 06-08-[address] [facility] 05-05-2023 Mental Status Orientation Oriented x 4 [facility] 05-05-2023 Mental Status [facility] 12-23-2022 Mental Status Oriented x 4 [facility] 10-27-2022 Mental Status Orientation Oriented x 4 [facility] 10-27-2022 Mental Status [facility] 10-25-2022 Mental Status Orientation Oriented x 4 [facility] 10-24-2022 Mental Status [facility] 10-23-2022 Cognitive function Voice/Name [facility] Work Phone: 07-15-2022 Mental Status Oriented x 4 [facility] 07-11-2022 Mental Status Oriented x 4 [facility] Clinical Notes 02-07-2022 to 10-23-2024 Note [...] your health care provider approves. Standard walker 1.page makeup system operator your walker. Do not slide your standard [...] 05/15/2006 Document Revised: 04/10/2019 Document Reviewed: 04/10/2019 [employer] Patient Education 2020 [employer] 10/23/2024 17:07:24 How to Care for [...] with a waterproof covering. General instructions Take zbbm-xui-sucsbbo and prescription medicines only as told by [...] 01/25/2012 Document Revised: 07/12/2019 Document Reviewed: 07/15/2019 [employer] Patient Education 2020 [employer]. Follow Up Care 10/16/2024 16:12:44 With:[facility], donato, Address:Unknown When:1-2 days With:ISADORA CORREA Address: [address] [place] [address] [phone] Business (1) When:1-2 days With:NANI QUINTANA DO, Orthopedic Address: [address], [place] [address] [phone] When:3-7 days Comments:Please call office SARA to confirm/verify follow up appointment. [facility] 10-23-2024 Note Discharge Instructions Thank you for allowing [facility] to assist you with your healthcare needs. The following is important discharge information regarding your hospital visit. Your Care Team ISADORA CORREA Your Diagnosis Closed displaced bimalleolar fracture of right ankle Post-op pain Shortness of breath What to do next Scheduled Follow-Up Appointments Appointment Type When With Where Contact Information StatusCV OV Hospital Follow Up 11/08/2024 02:[address] [facility] Edy [facility] Confirmed PC OV 11/12/2024 03:30 PM EDT ISADORA CORREA [facility] Confirmed Follow Up [facility]ments [facility] When:Within 1-2 days Follow Up with ISADORA CORREA When:Within 1-2 days Where:[address] [facility] [place] [address]- [phone] Business (1) Follow Up with NANI QUINTANA DO, Orthopedic When:Within 3-7 days Where:[address], [place] [address]- [phone] Additional Information: Please call office SARA to [...] Post-op pain Duration: 7 Days Pickup at [facility]/pharmacy #[id number] Unchanged albuterol (albuterol 2.5 mg/ 3 mL [...] by mouth Daily at bedtime Pharmacy Information [facility]/pharmacy #[id number]: [address], [place] [phone] Please take this list to your next [...] may report side effects to FDA at 2-248-KRW-2492. What other drugs will affect acetaminophen and [...] affect acetaminophen and oxycodone, including prescription and aglf-ttm-vlgowzz medicines, vitamins, and herbal products. Not all [...] to ensure that the information provided by [employer] ('[employer]') is accurate, up-to-date, and complete, but no guarantee is made to that effect. Drug information contained herein may be time sensitive. [employer] information has been compiled for use by healthcare practitioners and consumers in the [place] and therefore [employer] does not warrant that uses outside of the [place] are appropriate, unless specifically indicated otherwise. [employer]s drug information does not endorse drugs, diagnose patients or recommend therapy. [employer]s drug information is an informational resource designed [...] effective or appropriate for any given patient. [employer] does not assume any responsibility for any aspect of healthcare administered with the aid of information [employer] provides. The information contained herein is not intended to cover all possible uses, directions, precautions, warnings, drug interactions, allergic reactions, or adverse effects. If you have questions about the drugs you are taking, check with your doctor, nurse or pharmacist. Copyright 0322-0682 [employer] Version: 22.01. Revision Date: 12/29/2022. Education Materials [...] health care provider approves. Standard walker 1. page makeup system operator your walker. Do not slide your standard [...] 05/15/2006 Document Revised: 04/10/2019 Document Reviewed: 04/10/2019 [employer] Patient Education 2020 [employer] How to Care for an External [...] with a waterproof covering. General instructions Take ipzt-oaj-tusrenh and prescription medicines only as told by [...] 01/25/2012 Document Revised: 07/12/2019 Document Reviewed: 07/15/2019 [employer] Patient Education 2020 [employer]. Additional Information VACCINATE! IT SAVES LIVES! Members of the community who have not yet received the COVID-19 vaccine and would like to receive it can visit one of [facility] vaccine clinics. There are many vaccine clinic locations within the [facility]. For locations and available times, please visit [email or web address].o hio.gov/. It is important to note that some COVID mobile vaccine clinics are held outdoors and may be canceled in rainy or stormy conditions. To learn more about pediatric vaccinations (ages 5-11), we invite you to visit the [facility] webpage. [email or web address] [email or web address]-Bcnzuepbpbs-Freq galdpi-Qbsvv-Cpnozdcac.html To learn more about the COVID-19 vaccine, we invite you to visit the CDC website for a list of frequently asked questions.https://www.cdc.gov/co ronavirus/2019-ncov/vaccines/faq .html [employer] Patient Portal Access Instructions: Stay connected with your healthcare team and access your personal medical information anytime with the [facility] Patient Portal. Please follow the directions below to create your [employer] account: 1.Access the email account you provided upon registration to the hospital/physician office.2.Look for an invitation email from [facility].3.Open the email and access the invitation link: Accept Invitation to [facility].4.Fill in the required orr to create your account. To access your account, visit [email or web address]. Click the blue button labeled Access Patient [...] you will allow to register on the [facility] Patient Portal for access to your information. You can also access the [facility] Patient Portal on the [place] [facility] frida. Simply click on Patient Portal and then log into your account. If you would like to receive a full copy of your medical records, please contact the [facility] Medical Records Department by calling [phone], Monday through Monday between 8 a.m. and [...] Call your local pharmacy or go to http://bit.netprice.com/1B9Cq4t to find one close to you.3.Make use of household items: Use cat litter or old coffee grounds to dispose medications if other options are not available. Mix your drugs with these household products, seal them in an airtight container and throw it into the garbage. Call [facility]: [phone] to be sure your drugs can be [...] aware that I should contact my doctor. Patient/Boat Pilot Signature: Date/Time: Relationship to Patient: Witness Name/Signature: Date/Time: [facility] 10-23-2024 Note Discharge Instructions Thank you for allowing [place] to assist you with your healthcare needs. The following is important discharge information regarding your hospital visit. Your Care Team ISADORA CORREA Your Diagnosis Closed displaced bimalleolar fracture of right ankle Post-op pain Shortness of breath What to do next Scheduled Follow-Up Appointments Appointment Type When With Where Contact Information StatusCV OV Hospital Follow Up 11/08/2024 02:[address] [facility] Edy [facility] Confirmed PC OV 11/12/2024 03:30 PM EDT ISADORA CORREA [facility] Confirmed Follow Up Appointments Follow Up with [facility], skilled, When:Within 1-2 days Follow Up with ISADORA CORREA When:Within 1-2 days Where:[address] [place] [address]- [phone] Business (1) Follow Up with NANI QUINTANA DO, Orthopedic When:Within 3-7 days Where:[id number] [facility], [place] [address]- [phone] Additional Information: Please call office SARA to [...] Post-op pain Duration: 7 Days Pickup at [facility]/pharmacy #[id number] Unchanged albuterol (albuterol 2.5 mg/ 3 mL [...] by mouth Daily at bedtime Pharmacy Information [facility]/pharmacy #[id number]: [address], [place] [phone] Please take this list to your next [...] to receive it can visit one of [facility] vaccine clinics. There are many vaccine clinic locations within the [facility]. For locations and available times, please visit [email or web address] hio.gov/. It is important to note that some COVID mobile vaccine clinics are held outdoors and may be canceled in rainy or stormy conditions. To learn more about pediatric vaccinations (ages 5-11), we invite you to visit the [employer] Children[facility] webpage. https://www.FilterSures.org/p ages/2730-Oxgff-Neeitqqrpid-Freq bggzbw-Rwuce-Vryuigoak.html To learn more about the COVID-19 vaccine, we invite you to visit the CDC website for a list of frequently asked questions.https://www.cdc.gov/co ronavirus/2019-ncov/vaccines/faq .html [facility] Patient Portal Access Instructions: Stay connected with your healthcare team and access your personal medical information anytime with the [facility] Patient Portal. Please follow the directions below to create your [facility] account: 1.Access the email account you provided upon registration to the hospital/physician office.2.Look for an invitation email from [facility].3.Open the email and access the invitation link: Accept Invitation to [facility].4.Fill in the required orr to create your account. To access your account, visit [employer]. Click the blue button labeled Access Patient [...] you will allow to register on the [facility] Patient Portal for access to your information. You can also access the [facility] [employer] Patient Portal on the [place] [facility] frida. Simply click on Patient Portal and then log into your account. If you would like to receive a full copy of your medical records, please contact the [facility] Medical Records Department by calling [phone], Monday through Monday between 8 a.m. and [...] Call your local pharmacy or go to [email or web address] to find one close to you.3.Make use of household items: Use cat litter or old coffee grounds to dispose medications if other options are not available. Mix your drugs with these household products, seal them in an airtight container and throw it into the garbage. Call [facility]: [phone] to be sure your drugs can be [...] aware that I should contact my doctor. 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 Walking boot in place when patient is ambulating - Motor: Hip flexion/extension, quadriceps, hamstrings, gastruc/soleus, EHL/FHL intact. - DP and PT pulse 2+. Foot warm and perfused. 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 Walking boot in place when patient is ambulating - Motor: Hip flexion/extension, quadriceps, hamstrings, gastruc/soleus, EHL/FHL intact. - DP and PT pulse 2+. Foot warm and perfused. 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 Walking boot in place when patient is ambulating - Motor: Hip flexion/extension, quadriceps, hamstrings, gastruc/soleus, EHL/FHL intact. - DP and PT pulse 2+. Foot warm and perfused. 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 Walking boot in place when patient is ambulating - Motor: Hip flexion/extension, quadriceps, hamstrings, gastruc/soleus, EHL/FHL intact. - DP and PT pulse 2+. Foot warm and perfused. 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 - Calf soft and non-tender Weight Dosing [...] DO on 10/22/2024 05:51 AM [facility] 10-21-2024 Orthopaedic surgery Progress note Date [...] DO on 10/21/2024 10:00 AM [facility] 10-21-2024 Orthopaedic surgery Progress note Date [...] DO on 10/21/2024 10:00 AM [facility] 10-18-2024 Pastoral care Progress note Pastoral Care Note Entered On: 10/18/2024 16:52 EDT Performed On: 10/18/2024 14:50 EDT by Sanjay Lucas Replaced By [facility] Type of Pastoral Visit : Initial visit [...] Lucas on 10/18/2024 04:50 PM [facility] 10-18-2024 Note PIN care completed by bedside RN. Ortho approved protocol orders for care daily. Digitally Signed by SHAHEEN Lou on 10/18/2024 01:37 PM [facility] 10-18-2024 Note Date of Service 10/18/2024 [...] HOFFMAN on 10/18/2024 01:11 PM [facility] 10-17-2024 Note Exam Date Time Procedure Performing Provider Status 10/17/24 1:14 PM XR Fluoro 1-2 Hrs Tech Time KAILEY WAHL DO; Auth (Verified) [id number] ORIGINAL EXAMINATION: TAD MD - > 1 HR TECHNIQUE: Total fluoro time is 43.2 seconds. Total exposure is 2.0531 mGy. COMPARISON: CT ankle 10/17/2024, x-ray ankle 10/16/2024. HISTORY: ORDERING SYSTEM PROVIDED HISTORY: Reason for Exam: RIGHT ANKLE FX FINDINGS: Intraoperative fluoroscopic images from external surgical fixation of a distal fibular fracture. IMPRESSION: Intraoperative fluoroscopic images. Please refer to the waste treatment operator's report for further information. I have personally reviewed the images of this examination and agree with the resident's findings and interpretation. Interpreted by: Corey Wahl Preliminary Report By: Nadya Hudson Electronically signed By Corey Wahl Dictated Date: 10/17/2024 1:42:02 PM Prelim Date: 10/17/2024 2:15:08 PM Sign Date: 10/17/2024 2:15:08 PM [facility]ing [facility] [id number] Note Date of Service 10/17/2024 Chief Complaint Medical management Subjective This 54-year-old white male with a past medical history of type 2 diabetes mellitus, hypertension, COPD, HFpEF, anxiety, atrial fibrillation on Xarelto and Tikosyn presented to [facility] aftermechanical fall and subsequent ankle pain. [...] HOFFMAN on 10/17/2024 12:52 PM [facility] HospitalAyfknnzi52-84-4365 Anesthesiology Consult note Patient: SOCORRO KELLEY Age: [...] DO on 10/17/2024 11:13 AM [facility] HospitalYdsmethv57-52-3578 Note* Exam Date Time Procedure Performing Provider Status 10/17/24 10:[address] Ankle w/o Contrast Right KATHY REVELES MD; Auth (Verified) [id number] ORIGINAL EXAMINATION: CT OF THE RIGHT ANKLE [...] spanning external fixator, multiplanar 10/17. transfer from [facility]. for right ankle fracture with dislocation. [...] PM Ordering Provider: TARA MISHRA [facility] HospitalShdasgiu27-17-4943 History and physical note Date of Service 10/16/2024 Chief Complaint Pt here from [facility] via squad after a mechanical fall causing a fracture to his right ankle. They splinted it in their ED and sent to [place] for surgical consult. History of Present Illness Patient is a 54-year-old male who presents to the [facility] emergency department as a transfer from [facility] for his right ankle fracture. Patient [...] Blood, q24h, for 5 day(s), Preferred Lab: [facility], Stop date 10/20/24 22:00:00 EDT [...] Blood, q24h, for 5 day(s), Preferred Lab: [facility], Stop date 10/20/24 22:00:00 EDT Complete Metabolic Panel(CMP), 10/16/24 21:21:00 EDT, URGENT (collect within 2 hrs), Blood, Once, Nurse Collect, Preferred Lab: [facility], Stop date 10/16/24 21:37:00 EDT Consult to Physician, 10/16/24 21:21:00 EDT, HOSPITALISTLARRY (For Consultation Assignment OnlyNO other Orders), Routine, medical clearance, follow medically Diet Order, 10/16/24 21:21:00 EDT, Start Meal: Next meal, Regular, Constant Order, : N/A, : N/A Electrocardiogram(EKG), 10/16/24 21:21:00 EDT, Complete by Nursing Incentive Spirometer, 10/16/24 21:21:00 EDT, u0hAL-EZ Intake and Output, 10/16/24 21:21:00 EDT, q8h (2p, 10p, 6a) IV Catheter Insertion/Care(Peripheral IV Insertion/Care), 10/16/24 21:21:00 EDT, IV Care: Once, 18 gauge angiocath, if possible Pulse Oximeter - Intermittent, 10/16/24 21:21:00 EDT, AsDirected, PRN order, On admission and as indicated Type and Screen, 10/16/24 21:21:00 EDT, URGENT (collect within 2 hrs), Blood, Once, Nurse Collect, Preferred Lab: [facility], Stop date 10/16/24 21:21:00 EDT [...] DO on 10/16/2024 09:43 PM [facility] [id number] Anesthesiology Consult note Patient: SOCORRO KELLEY Age: [...] list: Medical Asthma exacerbation / SNOMED CT 7292894528 / Confirmed COPD exacerbation / SNOMED CT 2249080992 / Confirmed Atopic dermatitis / SNOMED CT 94190496 / Confirmed Atypical chest pain / SNOMED CT 900538768 / Confirmed Morbid obesity with BMI of 40.0-44.9, adult / SNOMED CT 5083516029 / Confirmed Bronchitis / SNOMED CT 80744545 / Confirmed Cardiomyopathy / SNOMED CT 556827920 / Confirmed CHF with cardiomyopathy / SNOMED CT 29123398 / Confirmed Cough / SNOMED CT 24912211 / Confirmed Dental abscess / SNOMED CT 951313367 / Confirmed Depression / SNOMED CT 06819717 / Confirmed Dyspnea / SNOMED CT 263939620 / Confirmed Generalized anxiety disorder / SNOMED CT 92640911 / Confirmed Hypertension associated with type 2 diabetes mellitus / SNOMED CT 6746990507 / Confirmed Insomnia / SNOMED CT 908292987 / Confirmed LVH (left ventricular hypertrophy) / SNOMED CT 87648581 / Confirmed Moderate asthma / SNOMED CT 4934379561 / Confirmed Near syncope / SNOMED CT 5177660785 / Confirmed Chewing tobacco nicotine dependence / SNOMED CT 50032990 / Confirmed KOFFI (obstructive sleep apnea) / SNOMED CT 856422350 / Confirmed Right knee pain / SNOMED CT 9906260730 / Confirmed Paroxysmal atrial fibrillation / SNOMED CT 654227420 / Confirmed Screening for ischemic heart disease / SNOMED CT 259109747 / Confirmed Screening for colon cancer / SNOMED CT 131655017 / Confirmed Statin intolerance / SNOMED CT 0341465160 / Confirmed Tachyarrhythmia / SNOMED CT 32799575 / Confirmed Type 2 diabetes mellitus with hemoglobin A1c goal of less than 7.0% / SNOMED CT 419390317 / Confirmed Type 2 diabetes mellitus with hyperlipidemia / SNOMED CT 958482009 / Confirmed, Active Problems (32) Asthma exacerbation [...] Histories Past Medical History: Resolved Morbid obesity (851638542): Resolved. Diabetes mellitus (193240446): Resolved. Hypertension (4177505043): Resolved. BMI 45.0-49.9, adult (4104360439): Resolved. Anxiety (80892752): Resolved. Prediabetes (0036746788): Resolved. Obstructive sleep apnea (822439563): Resolved. Right flank pain (747431353): Resolved. Hyperlipidemia (04014439): Resolved. Mass of arm (500651347): Resolved. Family History: Cancer Father Heart disease Mother Grandparent Stroke Father Procedure history: Excision ([id number]) on 03/25/2024 at 53 Years. Comments: 03/26/2024 7:50 Karol Curry LPN excision of multilobulated lipomatous mass right forearm Echocardiogram ([id number]) on 01/31/2024 at 53 Years. Cardioversion (360672204) on 12/23/2022 at 52 Years. Echocardiogram ([id number]) on 11/11/2022 at 52 Years. Comments: 03/20/2023 [...] right atrial pressure is 15 mm Hg [facility] ([id number]). Comments: 07/11/2022 8:26 SHAHEEN Nunez - right [...] Temp Oral36.7 DegC (OCTOBER 17:12) Heart Rate Bdxxpxpzq33 bpm (OCTOBER 17 00:00) LBH430 mmHg (OCTOBER 17:12) DBP82 mmHg (OCTOBER 17:12) BMI44.92 (OCTOBER 17:29) Measurements from flowsheet : Measurements 10/17/2024 1:29 EDT Height 177.8 cm Height in inches 70 inch(es) Admission Weight 142 kg Weight Lbs 312.4 lb [place] Body Weight 73.00 kg Type of Scale [...] PRN medication effectiveness Partial Nail Bed Color Crook Capillary Refill < 2 seconds Dorsalis Pedis Pulse, Left 2+ Normal Radial Pulse, Left 2+ Normal Radial Pulse, Right 2+ Normal Respirations Unlabored Respiratory Pattern Regular All Lobes Breath Sounds Clear Abdomen Description Non-distended, Rounded Abdomen Palpation Non-Tender Passing Flatus Yes Bowel Sounds All Quadrants Present Skin Description Crook, Dry Skin Temperature Warm Skin Integrity Pressure points intact Skin Turgor Elastic All Extremity Description Crook, Normal for ethnicity Temperature All Extremities Warm Mucous Membrane Color Crook Mucous Membrane Description Moist Ankle Right Incision, Wound Dressing/Activity: Assessed Incision, Wound Dressing: Elastic wrap bandage Wound Associated Pain: With activity, mobilization Buttock Inferior, Inner Skin Abnormality Type: Non-pressure ulcer Skin Abnormality Color: Crook, Red Incision, Wound Surrounding Tissue: Normal skin [...] EDT Designated Person #1 We May Share [facility] MARILYN OSPINA [phone] Designated Person #1 Relationship Sibling Designated Person #2 We May Share PHI Designated Person #2 We May Share PHI Privacy Restrictions Requested None Height 177.8 cm Height in inches 70 inch(es) Admission Weight 142 kg Weight Lbs 312.4 lb [place] Body Weight 73.00 kg Type of Scale [...] evident Teaching Method Explanation Preferred Spoken Language Andorran Preferred Written Language Andorran Disease Process General Education Signs/Symptoms to report, [...] 10/16/2024 16:28 EDT Status N/A [place] 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 They splinted it in their ED and sent to [place] for surgical consult. Place Where Injury/Illness Occurred Other: [facility] Anticoagulants Taken In Past 6 Wks. No [...] Non-distended, Symmetric Abdomen Palpation Non-Tender Skin Description Crook, Normal for ethnicity, Dry Skin Temperature Warm Mucous Membrane Color Crook Mucous Membrane Description Moist Neurological Symptoms Patient denies Level of Consciousness Alert Eye Opening Response [place] Spontaneously Best Motor Response [place] Obeys simple commands Best Verbal Response [place] Oriented Luis Felipe Coma Score 15 CLARA [...] No Weight Loss No Preferred Spoken Language Andorran Preferred Written Language Andorran Tracking Group ED Tracking Group Tracking Acuity 3 ED Diabetic Patient No Mode of Transfer Ground ambulance Ambulance Service [facility] Positioning Repositions self Standard Safety ID band [...] ED Triage Adults . Assessment and Plan [place] [employer] Anesthesiologists (ASA) physical status classification: [...] diabetes mellitus with hyperlipidemia Historical Anxiety [facility] Hyperlipidemia Hypertension Mass of arm Obstructive sleep apnea Prediabetes Right flank pain . Digitally Signed by MELISSA MARIN MD on 10/17/2024 06:21 AM Digitally Signed by DELORES BRAVO on 10/17/2024 07:17 AM [facility] HospitalUxoonfhq36-79-1224 Note Date of Service October 16, 2024 [...] DO on 10/16/2024 10:38 PM [facility] HospitalFlyrswnf20-94-2817 Note* Exam Date Time Procedure Performing Provider Status 10/16/24 10:24 PM Electrocardiogram - EKG - CV SA SULY PAULINO MD; Auth (Verified) ECG Final Report SINUS RHYTHM LEFT ANTERIOR FASCICULAR BLOCK LOW VOLTAGE, PRECORDIAL LEADS Electronic Signature: ALIZA PAULINO MD 10/17/2024 18:58:09 [facility] HospitalJuawvshp82-87-8232 Note* Exam Date Time Procedure Performing Provider Status 10/16/24 10:07 PM XR Ankle Minimum 3 Views Left TRACE ROUSE MD; Auth (Verified) [id number] ORIGINAL EXAMINATION: THREE XRAY VIEWS OF THE [...] PM Ordering Provider: RIC ARELLANO [facility] HospitalQaagbhzv86-81-3515 History and physical note Date of Service 10/16/2024 Chief Complaint Pt here from [facility] via squad after a mechanical fall causing a fracture to his right ankle. They splinted it in their ED and sent to [place] for surgical consult. History of Present Illness Patient is a 54-year-old male who presents to the [facility] emergency department as a transfer from [facility] for his right ankle fracture. Patient [...] Blood, q24h, for 5 day(s), Preferred Lab: [facility], Stop date 10/20/24 22:00:00 EDT [...] Blood, q24h, for 5 day(s), Preferred Lab: [facility], Stop date 10/20/24 22:00:00 EDT Complete Metabolic Panel(CMP), 10/16/24 21:21:00 EDT, URGENT (collect within 2 hrs), Blood, Once, Nurse Collect, Preferred Lab: [facility], Stop date 10/16/24 21:37:00 EDT Consult to Physician, 10/16/24 21:21:00 EDT, HOSPITALISTLARRY (For Consultation Assignment OnlyNO other Orders), Routine, medical clearance, follow medically Diet Order, 10/16/24 21:21:00 EDT, Start Meal: Next meal, Regular, Constant Order, : N/A, : N/A Electrocardiogram(EKG), 10/16/24 21:21:00 EDT, Complete by Nursing Incentive Spirometer, 10/16/24 21:21:00 EDT, a0rAQ-CJ Intake and Output, 10/16/24 21:21:00 EDT, q8h (2p, 10p, 6a) IV Catheter Insertion/Care(Peripheral IV Insertion/Care), 10/16/24 21:21:00 EDT, IV Care: Once, 18 gauge angiocath, if possible Pulse Oximeter - Intermittent, 10/16/24 21:21:00 EDT, AsDirected, PRN order, On admission and as indicated Type and Screen, 10/16/24 21:21:00 EDT, URGENT (collect within 2 hrs), Blood, Once, Nurse Collect, Preferred Lab: [facility], Stop date 10/16/24 21:21:00 EDT [...] DO on 10/16/2024 09:43 PM [facility] HospitalSvzkrpwv10-77-9259 Note* Exam Date Time Procedure Performing Provider Status 10/16/24 8:42 PM XR Ankle Minimum 3 Views Right TRACE ROUSE MD; Auth (Verified) [id number] ORIGINAL EXAMINATION: THREE XRAY VIEWS OF THE [...] PM Ordering Provider: RIC ARELLANO [facility] HospitalDqmvxavg16-81-6665 Note* Exam Date Time Procedure Performing Provider Status 10/16/24 7:09 PM XR Ankle Minimum 3 Views Right TRACE ROUSE MD; Auth (Verified) [id number] ORIGINAL EXAMINATION: THREE XRAY VIEWS OF THE [...] Sign Date: 10/16/2024 7:53:07 PM Ordering Provider: [facility]05-21-2025 Note* Exam Date Time Procedure Performing Provider Status 10/16/24 5:43 PM XR Ankle Minimum 3 Views Right TRACE ROUSE MD; Auth (Verified) [id number] ORIGINAL EXAMINATION: THREE XRAY VIEWS OF THE [...] 10/16/2024 6:28:12 PM Ordering Provider: EM GARCIA [facility] HospitalSlhrrbob18-06-3355 Evaluation + Plan noteExtracted from: Title:Ortho History [...] for 5 day(s), Preferred Lab: [facility], Stop date 10/20/24 22:00:00 EDT Complete Metabolic Panel(CMP), 10/16/24 21:21:00 EDT, URGENT (collect within 2 hrs), Blood, Once, Nurse Collect, Preferred Lab: [facility], Stop date 10/16/24 21:37:00 EDT Consult to Physician, 10/16/24 21:21:00 EDT, HOSPITALISTLARRY (For Consultation Assignment Only NO other Orders), Routine, medical clearance, follow medically Diet Order, 10/16/24 21:21:00 EDT, Start Meal: Next meal, Regular, Constant Order, : N/A, : N/A Electrocardiogram(EKG), 10/16/24 21:21:00 EDT, Complete by Nursing Incentive Spirometer, 10/16/24 21:21:00 EDT, f1rKT-GF Intake and Output, 10/16/24 21:21:00 EDT, q8h (2p, 10p, 6a) IV Catheter Insertion/Care(Peripheral IV Insertion/Care), 10/16/24 21:21:00 EDT, IV Care: Once, 18 gauge angiocath, if possible Pulse Oximeter - Intermittent, 10/16/24 21:21:00 EDT, AsDirected, PRN order, On admission and as indicated Type and Screen, 10/16/24 21:21:00 EDT, URGENT (collect within 2 hrs), Blood, Once, Nurse Collect, Preferred Lab: [facility], Stop date 10/16/24 21:21:00 EDT [...] Appointment Date:11/08/2024 02:30:00 PM Scheduled Provider:EDY WEBER Location:[facility] Appointment Type:CV OV Hospital Follow Up Appointment Date:11/12/2024 03:30:00 PM Scheduled Provider:ISADORA CORREA Location:[facility] Appointment Type:PC OV Future Scheduled Tests Laboratory* Basic Metabolic Panel 02/07/24 * Basic Metabolic Panel 12/10/24 * Basic Metabolic Panel 02/19/24 * Magnesium Level 02/07/24 * Complete Blood Count 08/27/24 * Complete Metabolic Panel 08/27/24 * N-Terminal proBNP 08/27/24 [facility] 05-09-2025 Hospital Discharge instructions Patient Education [...] Slowly return to your usual activities. Take nzke-hpa-oppezzm and prescription medicines only as told by [...] 02/07/2002 Document Revised: 10/15/2018 Document Reviewed: 10/15/2018 [employer] [facility] Patient Education 2020 [employer]. 10/04/2024 21:03:30 Pursed Lip Breathing Pursed Lip [...] exercise. Follow these instructions at home: Take ltqq-jmf-cwexdhc and prescription medicines only as told by [...] 02/21/2009 Document Revised: 04/27/2018 Document Reviewed: 04/06/2017 [facility] [facility] Patient Education 2020 [employer] 10/04/2024 21:03:27 Cough, Adult Cough, Adult [...] Follow these instructions at home: Medicines Take nvxj-mjh-dzckpmm and prescription medicines only as told by [...] of a condition that needs treatment. Take plbn-wep-ajwqras and prescription medicines only as told by [...] 11/11/2011 Document Revised: 06/03/2019 Document Reviewed: 06/03/2019 [employer] [facility] Patient Education 2020 [employer]. Follow Up Care 10/02/2024 02:08:49 With:readmission score is 13 Address:Unknown When: Unknown With:ISADORA CORREA Address: [address] [place] [address]- [phone] Business (1) When:1-2 days [facility] 05-09-2025 Note Discharge Instructions Thank you for allowing [place] to assist you with your healthcare needs. The following is importantdischarge information regarding your hospital visit. Your Care Team ISADORA CORREA Your Diagnosis Shortness of breath What to do next Scheduled Follow-Up Appointments Appointment Type When With Where Contact Information StatusPC OV 10/23/2024 04:00 PM EDT ISADORA CORREA [facility] [phone] Confirmed CV OV Hospital Follow Up 11/08/2024 02:30 PM EDT EDY WEBER [facility] Confirmed Follow Up Appointments Follow Up with readmission score is 13 Follow Up with ISADORA CORREA When:Within 1-2 days Where:[address] [place] [address]- [phone] Business (1) The Following Activity and Diet [...] within 14 days after discharge, please call [facility] at [phone]. Post Acute Orders No qualifying data available. [...] a day Take with food Pickup at [facility]/pharmacy #[id number] Unchanged acetaminophen (Tylenol) by mouth As needed [...] Two (2) times a day Pickup at [facility]/pharmacy #4605 Unchanged dulaglutide (Trulicity Pen 1.5 [...] by mouth Daily at bedtime Pickup at [facility]/pharmacy #4605 Unchanged spironolactone (spironolactone 25 mg oral tablet) 1 tab(s) by mouth Once a day Duration: 90 Days Unchanged tiZANidine (tiZANidine 2 mg oral tablet) 1 tab(s) by mouth Every 8 hours as needed for as needed for muscle spasm Duration: 7 Days Unchanged traZODone (traZODone 100 mg oral tablet) 1 tab(s) by mouth Daily at bedtime Pharmacy Information [facility]/pharmacy #[id number]: [address], [place] [phone] Please take this list to your next [...] may report side effects to FDA at 1-967-UPH-3415. What other drugs will affect hydroxyzine? Taking [...] may interact with hydroxyzine, including prescription and rtxh-mcr-eufughm medicines, vitamins, and herbal products. Not all [...] to ensure that the information provided by [employer]') is accurate, up-to-date, and complete, but no guarantee is made to that effect. Drug information contained herein may be time sensitive. [employer] information has been compiled for use by healthcare practitioners and consumers in the [place] and therefore [employer] does not warrant that uses outside of the [place] are appropriate, unless specifically indicated otherwise. [employer]s drug information does not endorse drugs, diagnose patients or recommend therapy. [employer]s drug information isan informational resource designed to [...] effective or appropriate for any given patient. [employer] does not assume any responsibility for any aspect of healthcare administered with the aid of information [employer] provides. The information contained herein is not intended to cover all possible uses, directions, precautions, warnings, drug interactions, allergic reactions, or adverse effects. If you have questions about the drugs you are taking, check with your doctor, nurse or pharmacist. Copyright 8480-2505 [employer]. Version: 8.01. Revision Date: 08/10/2016. furosemide (oral/injection) [...] blood pressure, such as diet pills or xlled-ftz-drtp medicine. What are the possible side effects [...] may report side effects to FDA at 9-563-OUD-4078. What other drugs will affect furosemide? Sometimes [...] drugs may affect furosemide, including prescription and mejs-oad-kqygmaq medicines, vitamins, and herbal products. Not all [...] to ensure that the information provided by [employer] is accurate, up-to-date, and complete, but no guarantee is made to that effect. Drug information contained herein may be time sensitive. [employer] information has been compiled for use by healthcare practitioners and consumers in the [place] and therefore [employer] does not warrant that uses outside of the [place] are appropriate, unless specifically indicated otherwise. [employer]s drug information does not endorse drugs, diagnose patients or recommend therapy. [employer]s drug information isan informational resource designed to [...] effective or appropriate for any given patient. [employer] does not assume any responsibility for any aspect of healthcare administered with the aid of information [employer] provides. The information contained herein is not intended to cover all possible uses, directions, precautions, warnings, drug interactions, allergic reactions, or adverse effects. If you have questions about the drugs you are taking, check with your doctor, nurse or pharmacist. Copyright 9904-8058 [employer]. Version: .. Revision Date: 11/07/2023. cetirizine (oral/injection) [...] may report side effects to FDA at 2-144-XMK-4339. What other drugs will affect cetirizine? Using cetirizine with other drugs that make you drowsy can worsen this effect. Ask your doctor before using opioid medication, a sleeping pill, a muscle relaxer, or medicine for anxiety or seizures. Other drugs may affect cetirizine, including prescription and uxdv-skk-jmpthha medicines, vitamins,and herbal products. Tell your doctor [...] to ensure that the information provided by [employer] is accurate, up-to-date, and complete, but no guarantee is made to that effect. Drug information contained herein may be time sensitive. [employer] information has been compiled for use by healthcare practitioners and consumers in the [place] and therefore [employer] does not warrant that uses outside of the [place] are appropriate, unless specifically indicated otherwise. [employer]s drug information does not endorse drugs, diagnose patients or recommend therapy. [employer]s drug information isan informational resource designed to [...] effective or appropriate for any given patient. [employer] does not assume any responsibility for any aspect of healthcare administered with the aid of information [employer] provides. The information contained herein is not intended to cover all possible uses, directions, precautions, warnings, drug interactions, allergic reactions, or adverse effects. If you have questions about the drugs you are taking, check with your doctor, nurse or pharmacist. Copyright 0788-9952 [employer] Version: 13.01. Revision Date: 11/16/2022. dofetilide (mathias [...] may report side effects to FDA at 1-460-LXL-3748. What other drugs will affect dofetilide? Other drugs may interact with dofetilide, including prescription and ukqn-fpe-wbsxaef medicines, vitamins, and herbal products. Tell each [...] to ensure that the information provided by [employer] is accurate, up-to-date, and complete, but no guarantee is made to that effect. Drug information contained herein may be time sensitive. [employer] information has been compiled for use by healthcare practitioners and consumers in the [place] and therefore [employer] does not warrant that uses outside of the [place] are appropriate, unless specifically indicated otherwise. [employer] drug information does not endorse drugs, diagnose patients or recommend therapy. [employer] drug information isan informational resource designed to [...] effective or appropriate for any given patient. [employer] does not assume any responsibility for any aspect of healthcare administered with the aid of information [employer] provides. The information contained herein is not intended to cover all possible uses, directions, precautions, warnings, drug interactions, allergic reactions, or adverse effects. If you have questions about the drugs you are taking, check with your doctor, nurse or pharmacist. Copyright 3645-9261 [employer]. Version: 4.01. Revision Date: 09/09/2015. allopurinol (oral/injection) [...] your (more content not included)... [facility] Pastoral care Progress note Pastoral Care Note [...] Lucas on 10/04/2024 04:16 PM [facility] HospitalYdukytaq53-29-4702 Discharge summary Date of Service 10/04/2024 Discharge [...] When:Within 1-2 days Where:[address] [place] [phone] Business (1) Follow Up Appointments No qualifying data available. Follow Up Labs/Studies Discharge Labs No Follow-up Labs Discharge Studies No Follow-up Studies Discharge Diet No qualifying data available. Discharge Activity No qualifying data available. Readmission Risk/Palliative Score LACE Score: 13 (10/02/24 10:21:00) Palliative Total Score: 1 (10/02/24 10:21:00) Digitally Signed by DUSTIN RICHARD MD on 10/04/2024 12:27 PM [facility] HospitalWyfxgunc80-34-3705 Discharge summary Date of Service 10/04/2024 Discharge [...] When:Within 1-2 days Where:[address] [facility] [place] [phone] Business (1) Follow Up Appointments No qualifying data available. Follow Up Labs/Studies Discharge Labs No Follow-up Labs Discharge Studies No Follow-up Studies Discharge Diet No qualifying data available. Discharge Activity No qualifying data available. Readmission Risk/Palliative Score LACE Score: 13 (10/02/24 10:21:00) Palliative Total Score: 1 (10/02/24 10:21:00) Digitally Signed by DUSTIN RICHARD MD on 10/04/2024 12:27 PM [facility] HospitalSbzjphce34-56-4554 Cardiology Progress note Date of Service 10/03/2024 [...] MD on 10/03/2024 01:50 PM [facility] HospitalLxuplrfc31-26-1650 Note* Exam Date Time Procedure Performing Provider Status 10/03/24 10:08 PM Electrocardiogram - EKG - CV JOHNIE VELÁZQUEZ MD; Auth (Verified) ECG Final Report SINUS RHYTHM LEFT AXIS DEVIATION LOW VOLTAGE, PRECORDIAL LEADS Electronic Signature: JOHNIE VELÁZQUEZ MD 10/04/2024 21:58:08 [facility] HospitalHijerzoh06-42-8938 Note* Exam Date Time Procedure Performing Provider Status 10/03/24 4:01 PM Echocardiogram, Adult - CV ALIZA PAULINO MD; Auth (Verified) [facility] HospitalYnekmsit07-53-8579 Cardiology Progress note Date of Service 10/03/2024 [...] MD on 10/03/2024 01:50 PM [facility] HospitalQyiynmrs12-11-2234 Note* Exam Date Time Procedure Performing Provider Status 10/03/24 10:03 AM Electrocardiogram - EKG - CV JOHNIE VELÁZQUEZ MD; Auth (Verified) ECG Final Report SINUS RHYTHM LOW VOLTAGE, PRECORDIAL LEADS CONSIDER ANTERIOR INFARCT Electronic Signature: JOHNIE VELÁZQUEZ MD 10/04/2024 21:57:56 [facility] HospitalEhkgmzoj48-02-2304 Note* Exam Date Time Procedure Performing Provider Status 10/02/24 10:04 PM Electrocardiogram - EKG - CV JOHNIE VELÁZQUEZ MD; Auth (Verified) ECG Final Report SINUS RHYTHM LEFT ANTERIOR FASCICULAR BLOCK PROLONGED QT INTERVAL Electronic Signature: JOHNIE VELÁZQUEZ MD 10/03/2024 19:52:07 [facility] HospitalXgszzaeh64-66-2262 History and physical note Date of Service [...] Diabetes mellitus Patient is currently in in [facility] A-fib. Rate is relatively well-controlled. Continue Cardizem [...] MD on 10/02/2024 03:28 PM [facility] HospitalIsqikgok12-30-8803 Note Date of Service October 02, 2024 [...] only), Blood, Once, Nurse Collect, Preferred Lab: [facility], Stop date 10/03/24 5:00:00 EDT [...] BUI on 10/02/2024 02:36 PM [facility] HospitalEfbcdqsg94-83-2849 Note Date of Service October 02, 2024 [...] only), Blood, Once, Nurse Collect, Preferred Lab: [facility], Stop date 10/03/24 5:00:00 EDT [...] BUI on 10/02/2024 02:36 PM [facility] HospitalPuprezvo21-25-6874 Evaluation + Plan noteExtracted from: Title:History and Physical Author:DUSTIN RICHARD MD Date:10/02/24 Paroxysmal atrial fibrillati on Tachyarrhythmia induced cardiomyopathy Heart failure with improved EF (EF 30 to 35% in October 2022 to 55% in 2023) Moderate to severe LVH Mild pulmonary hypertension Severely dilated LA (LA 5.1 cm, DANIEL??) Obesity and KOFFI (intolerant to CPAP) Hypertension Diabetes mellitus Patient is currently in in [facility]. Rate is relatively well-controlled. Continue Cardizem drip. [...] Appointment Date:10/23/2024 04:00:00 PM Scheduled Provider:ISADORA CORREA Location:[facility] Appointment Type: OV Appointment Date:11/08/2024 02:30:00 PM Scheduled Provider:EDY WEBER [facility] Type:[facility] Hospital Follow Up Diagnostic Tests Pending * Urinalysis w/ C&S if Indicated 10/02/24 Future Scheduled Tests Laboratory* Basic Metabolic Panel 02/07/24 * Basic Metabolic Panel 12/10/24 * Basic Metabolic Panel 02/19/24 * Magnesium Level 02/07/24 * Complete Blood Count 08/27/24 * Complete Metabolic Panel 08/27/24 * N-Terminal proBNP 08/27/24 [facility] 05-07-2025 Note* Exam Date Time Procedure Performing Provider Status 10/02/24 1:53 PM Electrocardiogram - EKG - CV Brant VELÁZQUEZ MD; Auth (Verified) ECG Final Report SINUS RHYTHM PROBABLE LEFT ATRIAL ENLARGEMENT Left axis deviation Electronic Signature: JOHNIE VELÁZQUEZ MD 10/03/2024 19:51:33 [facility] HospitalKawbwodf58-55-8282 History and physical note Date of Service [...] MD on 10/02/2024 03:28 PM [facility] HospitalNqgutbaq46-74-6004 Respiratory therapy Hospital Progress note Respiratory Therapy [...] Patton on 10/02/2024 11:12 AM [facility] HospitalHdeumnib51-36-7157 Note* Exam Date Time Procedure Performing Provider Status 10/02/24 8:23 AM Electrocardiogram - EKG - CV Brant VELÁZQUEZ MD; Auth (Verified) ECG Final Report ATRIAL FIBRILLATION LEFT ANTERIOR FASCICULAR BLOCK Electronic Signature: JOHNIE VELÁZQUEZ MD 10/03/2024 19:51:22 [facility] HospitalDvbjpaxw78-77-6696 Note* Exam Date Time Procedure Performing Provider Status 10/02/24 6:24 AM Electrocardiogram - EKG - CV Brant VELÁZQUEZ MD; Auth (Verified) ECG Final Report ATRIAL FIBRILLATION WITH RAPID VENTRICULAR RESPONSE Right axis deviation Electronic Signature: JOHNIE VELÁZQUEZ MD 10/03/2024 19:51:11 [facility] HospitalCaapbrtb65-04-2783 Nurse Progress note nephbritany Nicole [phone] Digitally Signed by Halley Staples RN on 10/02/2024 04:26 AM [facility]05-07-2025 Nurse Progress note ready bed at main, transport called at 0230 ETA 90 min Digitally Signed by Halley Staples RN on 10/02/2024 04:22 AM [facility]05-07-2025 Nurse Progress note ready bed at main, transport called at 0230 ETA 90 min Digitally Signed by Halley Staples RN on 10/02/2024 04:22 AM [facility]05-07-2025 Note* Exam Date Time Procedure Performing Provider Status 10/02/24 1:43 AM XR Chest 1 View DARNELL MOLINA MD; A [facility] (Verified) [id number] ORIGINAL EXAMINATION: ONE XRAY VIEW OF THE [...] 10/02/2024 2:02:33 AM Ordering Provider: DELORES MURO [facility]05-07-2025 Note* Exam Date Time Procedure Performing Provider Status 10/02/24 12:38 AM EKG [ED AOH] - DELORES CALLOWAY DO; A [facility] (Verified) ECG Final Report Atrial fibrillation Inferior infarct, old Probable anteroseptal infarct, old Prolonged QT interval Baseline wander in lead(s) III,V1,V2,V5,V6 Compared to ECG at 08/13/2024 11:03:57 Electronic Signature: DELORES MURO DO 10/02/2024 02:28:42 [facility]10-30-2024 Note The microscopic examination is performed, except in the case of Gross Only. [facility] 10-29-2024 Note The microscopic examination is performed, except in the case of Gross Only. [facility] 10-29-2024 Note The microscopic examination is performed, except in the case of Gross Only. [facility] 10-29-2024 Note The microscopic examination is performed, except in the case of Gross Only. [facility] 10-29-2024 Note The microscopic examination is performed, except in the case of Gross Only. [facility] 10-29-2024 Note The microscopic examination is performed, except in the case of Gross Only. [facility] 10-29-2024 Note The microscopic examination is performed, except in the case of Gross Only. [facility] 09-09-2024 Note. MICRO - Microbiology PROCEDURE: [...] Locations *1: This test was performed at: [address], [address] [place], [place] [id number] Note. MICRO - Microbiology PROCEDURE: Blood Culture [...] Locations *1: This test was performed at: [address], [address] [place], [place] [id number] Note. MICRO - Microbiology PROCEDURE: Blood Culture [...] Locations *1: This test was performed at: [address], [address] [place], [place] [id number] Note. MICRO - Microbiology PROCEDURE: Blood Culture [...] This test was performed at: [facility], [address] [place] [address], [facility] , [facility] [id number] Hospital Discharge instructions Patient Education 02/01/2024 17:18:13 Atrial Fibrillation, Pjdm-rk-Cfxj Atrial Fibrillation Atrial fibrillation is a type [...] Follow these instructions at home: Medicines Take howu-nzd-ckervey and prescription medicines only as told by [...] 02/21/2009 Document Revised: 07/19/2018 Document Reviewed: 07/06/2018 [facility] Patient Education 2020 [employer]. Follow Up Care 01/31/2024 00:20:11 With:ISADORA CORREA Address: [place] [address]- When:1-2 days Comments:Please call the office to schedule a hospital follow-up appointment. [facility] 09-05-2024 Note Discharge Instructions Thank you for allowing [facility] to assist you with your healthcare needs. The following is importantdischarge information regarding your hospital visit. Your Care Team ISADORA CORREA Your Diagnosis Shortness of breath What to do next Instructions From Your Doctor Resume taking all your usual medications Keep yourself hydrated Follow-up with your primary care physician and industrial organization manager Scheduled Follow-Up Appointments Appointment Type When With Where Contact Information Status Wellness Annual w/Labs 02/13/2024 03:30 PM EDT ISADORA CORREA [facility] Confirmed Follow Up Appointments Follow Up with ISADORA CORREA When:Within 1-2 days Where:[place] [address]- Additional Information: Please call the [...] Follow these instructions at home: Medicines Take uyfi-svh-sycphiu and prescription medicines only as told by [...] 02/21/2009 Document Revised: 07/19/2018 Document Reviewed: 07/06/2018 [facility] Patient Education 2020 [employer]. Additional Information VACCINATE! IT SAVES LIVES! Members of the community who have not yet received the COVID-19 vaccine and would like to receive it can visit one of [facility] vaccine clinics. There are many vaccine clinic locations within the [facility]. For locations and available times, please visit [email or web address] It is important to note that some COVID mobile vaccine clinics are held outdoors and may be canceled in rainy or stormy conditions. To learn more about pediatric vaccinations (ages 5-11), we invite you to visit the [facility] webpage. [email or web address]/[email or web address]-[email or web address] stions.htmlTo learn more about the COVID-19 vaccine, we invite you to visit the CDC website for a list of frequently asked questions.https://www.cdc.gov/coronavirus/2019-ncov/vaccines/faq.html [facility] Patient Portal Access Instructions: Stay connected with your healthcare team and access your personal medical information anytime with the [facility] Patient Portal. Please follow the directions below to create your [facility] account: 1.Access the email account you provided upon registration to the hospital/physician office.2.Look for an invitation email from [facility].3.Open the email and access the invitation link: AcceptInvitation to [facility].4.Fill in the required orr to create your account. To access your account, visit [email or web address]. Click the blue button labeled Access Patient [...] who you will allowto register on the [facility] Patient Portal for access to your information. You can also access the [facility] Patient Portal on the [facility] yuilop SLwhere frida. Simply click on Patient Portal and then log into your account. If you would like to receive a full copy of your medical records, please contact the [facility] Medical Records Department by calling [phone], Monday through Monday between 8 a.m. and [...] Call your local pharmacy or go to http://bit.ly/1R1Rl0o to find one close to you.3.Make use of household items: Use cat litter or old coffee grounds to dispose medications if other options arenot available. Mix your drugs with these household products, seal them in an airtight container andthrow it into the garbage. Call [facility]: [phone] to be sure your drugs can be [...] COPY. Signatures Patient Education Materials Atrial Fibrillation, Dexk-ci-Oqwn Medication Leaflets My discharge plan and instructions have been reviewed and explained to me and I,SOCORRO KELLEY understand my current condition and have read and understand these discharge instructions. I have received awritten copy of the plan/instructions. If I have questions, I am aware that I should contact my doctor. 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 Blood Glucose Test Strips: See Instructions, 1 bottle of 100 Test once daily, # 1 EA, 11 Refill(s), Pharmacy: [facility], 177.8, cm, 11/28/23 13:54:00 EDT, Height, 151.4, kg, 11/28/23 13:54:00 EDT, Dosing Weight FLUoxetine 20 mg oral capsule: Dose : 20 mg = 1 cap(s), Oral, qDay, # 30 cap(s), 3 Refill(s), Pharmacy: [facility], 177.8, cm, 11/28/23 13:54:00 EDT, Height, kg, 11/28/23 13:54:00 EDT,Dosing Weight Lancets: See Instructions, qs 1 month supply Test once daily, # 1 EA, 11 Refill(s), Pharmacy: [facility], 177.8, cm, 11/28/23 13:54:00 EDT, Height, 151.4, kg, 11/28/23 13:54:00 EDT, Dosing Weight Lasix 40 mg oral tablet: See Instructions, 1 tab in AM and 0.5 tab in PM, # 135 tab(s), 3 Refill(s), Pharmacy: [facility], 177.8, cm, 11/28/23 13:54:00 EDT, Height, kg, 11/28/23 13:54:00 EDT, Dosing Weight Symbicort 80 mcg-4.5 mcg/inh Inhaler: Dose = 2 puff(s), Inhalation, BID, # 10.2 gram(s), 3 Refill(s), Pharmacy: [facility], 177.8, cm, 11/28/23 13:54:00 EDT, Height, kg, 11/28/23 13:54:00 EDT, Dosing Weight Tikosyn 250 mcg oral capsule: Dose : 250 mcg = 1 cap(s), Oral, BID, # 180 cap(s), 3 Refill(s), Pharmacy: [facility]/pharmacy #[id number], 177.8, cm, 11/28/23 13:54:00 EDT, Height, kg, 11/28/23 13:54:00 EDT, Dosing Weight Toprol-XL 100 mg oral tablet, extended release: Dose : 100 mg = 1 tab(s), Oral, BID, do not crush or chew, # 180 tab(s), 3 Refill(s), Pharmacy: [facility], Shortness of breath, 177.8, cm, 11/28/23 13:54:00 EDT, Height, kg, 11/28/23 13:54:00 EDT, Dosing Weight Trulicity Pen 1.5 mg/0.5 mL subcutaneous solution: Dose : 1.5 mg =, Subcutaneous, qWeek, sent in absence of PCP, # 4 EA, 3 Refill(s), Pharmacy: [facility], 177.8, cm, 11/28/23 13:54:00EDT, Height, kg, 11/28/23 13:54:00 EDT, Dosing Weight Vistaril 25 mg oral capsule: Dose : 25 mg = 1 cap(s), Oral, QID, PRN as needed for anxiety, X 30 day(s), # 120 cap(s), 5 Refill(s), 06/09/24 16:10:00 EST, Pharmacy: [facility], 177.8, cm, 11/28/23 13:54:00 EDT, Height, kg, 11/28/23 13:54:00 EDT, Dosing Weight Xarelto 20 mg oral tablet: Dose : 20 mg = 1 tab(s), Oral, qHS, # 90 tab(s), 3 Refill(s), Pharmacy: [facility], 177.8, cm, 11/28/23 13:54:00 EDT, Height, 151.4, kg, 11/28/23 13:54:00 EDT, Dosing Weight allopurinol 100 mg oral tablet: Dose : 100 mg = 1 tab(s), Oral, qDay, # 90 tab(s), 3 Refill(s), Pharmacy: [facility], 177.8, cm, 11/28/23 13:54:00 EDT, Height, kg, 11/28/23 13:54:00 EDT, Dosing Weight cetirizine 10 mg oral tablet: Dose : 10 mg = 1 tab(s), Oral, Daily, # 90 tab(s), 3 Refill(s), Pharmacy: [facility], 177.8, cm, 11/28/23 13:54:00 EDT, Height, kg, 11/28/23 13:54:00 EDT,Dosing Weight nystatin 100,000 units/g topical cream: Apply 1 frida, Topical, BID, X 10 day(s), # 30 gram(s), 1 Refill(s), Pharmacy: [facility]/pharmacy #[id number], Cream, 177, cm, 01/12/24 9:42:00 EDT, Height, 148.6, kg, 01/12/24 9:42:00 EDT, Dosing Weight omeprazole 40 mg oral delayed release capsule: Dose : 40 mg = 1 cap(s), Oral, BID, before a meal., # 180 cap(s), 3 Refill(s), Pharmacy: [facility], 177.8, cm, 11/28/23 13:54:00 EDT, Height, kg, 11/28/23 13:54:00 EDT, Dosing Weight rosuvastatin 20 mg oral tablet: Dose : 20 mg = 1 tab(s), Oral, Daily, # 100 tab(s), 3 Refill(s), Pharmacy: [facility], 177.8, cm, 11/28/23 13:54:00 EDT, Height, kg, 11/28/23 13:54:00 EDT, Dosing Weight sacubitril-valsartan 49 mg-51 mg oral tablet: Dose = 1 tab(s), Oral, BID, # 180 tab(s), 3 Refill(s), Pharmacy: [facility], 177.8, cm, 11/28/23 13:54:00 EDT, Height, kg, 11/28/23 13:54:00 EDT, Dosing Weight spironolactone 25 mg oral tablet: Dose : 25 mg = 1 tab(s), Oral, qDay, # 90 tab(s), 3 Refill(s), Pharmacy: [facility], 177.8, cm, 11/28/23 13:54:00 EDT, Height, kg, 11/28/23 13:54:00 EDT, Dosing Weight tiZANidine 2 mg oral tablet: Dose : 2 mg = 1 tab(s), Oral, q8h, PRN as needed for muscle spasm, # 90 tab(s), 2 Refill(s), Pharmacy: [facility], 177.8, cm, 11/28/23 13:54:00 EDT, Height, kg, 11/28/23 13:54:00 EDT, Dosing Weight traZODone 100 mg oral tablet: Dose : 100 mg = 1 tab(s), Oral, qHS, # 90 tab(s), 3 Refill(s), Pharmacy: [facility], 177.8, cm, 11/28/23 13:54:00 EDT, [...] list: Medical Asthma exacerbation / SNOMED CT 6069858095 / Confirmed Anxiety / SNOMED CT 49792499 / Confirmed Atopic dermatitis / SNOMED CT 16083622 / Confirmed BMI 45.0-49.9, adult / SNOMED CT 9619623613 / Confirmed Cardiomyopathy / SNOMED CT 192665524 / Confirmed Diabetes mellitus / SNOMED CT 093424614 / Confirmed Generalized anxiety disorder / SNOMED CT 43565496 / Confirmed Hyperlipidemia / SNOMED CT 77635587 / Confirmed Hypertension / SNOMED CT 7035734704 / Confirmed Insomnia / SNOMED CT 544761928 / Confirmed Moderate asthma / SNOMED CT 4353081768 / Confirmed Morbid obesity / SNOMED CT 319853868 / Confirmed Chewing tobacco nicotine dependence / SNOMED CT 60223580 / Confirmed Obstructive sleep apnea / SNOMED CT 273960972 / Confirmed Right knee pain / SNOMED CT 3421146192 / Confirmed Paroxysmal atrial fibrillation / SNOMED CT 886617609 / Confirmed Screening for ischemic heart disease / SNOMED CT 158723456 / Confirmed Screening for colon cancer / SNOMED CT 492571242 / Confirmed Prediabetes / SNOMED CT 6952877129 / Confirmed Right flank pain / SNOMED CT 614393427 / Confirmed Type 2 diabetes mellitus with hemoglobin A1c goal of less than 7.0% / SNOMED CT 522825288 / Confirmed Wheezing / SNOMED CT 02774554 / Confirmed, Active Problems (26) Anxiety Asthma [...] Mother Grandparent Stroke Father Procedure history: Cardioversion ([id number]) on 12/23/2022 at 52 Years. Echocardiogram ([id number]) on 11/11/2022 at 52 Years. Comments: 03/20/2023 [...] atrial pressure is 15 mm Hg Elbow ([id number]). Comments: 07/11/2022 8:26 SHAHEEN Nunez - right [...] On and Limits Checked Nail Bed Color Crook Capillary Refill < 2 seconds Heart Sounds [...] Elimination Voiding, no difficulties All Extremity Description Crook Skin Temperature Warm Temperature All Extremities Warm Skin Description Crook, Dry Skin Integrity Intact Skin Turgor Non-Elastic Mucous Membrane Color Crook Mucous Membrane Description Moist Neurological Language Able to speak clearly Neurological Symptoms Patient denies Gait Unable to assess Extremity Movement Equal Swallowing Difficulty None Characteristics of Communication Appropriate Characteristics of Speech Clear Facial Symmetry Symmetric Level of Consciousness Alert Aspiration Risk None Eye Opening Response Luis Felipe Spontaneously Best Motor Response [place] Obeys simple commands Best Verbal Response Luis Felipe Oriented [place] Coma Score 15 CLARA Yes Strength All [...] On and Limits Checked Nail Bed Color Crook Capillary Refill < 2 seconds Heart Sounds ICU S1S2 Heart Rhythm Irregular Cardiac Rhythm Sinus rhythm Monitoring Lead II, V5/MCL5 [place] Interval 0.16 second(s) QRS Duration 0.08 second(s) [...] Elimination Voiding, no difficulties All Extremity Description Crook Skin Temperature Warm Temperature All Extremities Warm Skin Description Crook, Dry Skin Integrity Intact Skin Turgor Non-Elastic Mucous Membrane Color Crook Mucous Membrane Description Moist Neurological Language Able to speak clearly Neurological Symptoms Patient denies Gait Unable to assess Extremity Movement Equal Swallowing Difficulty None Characteristics of Communication Appropriate Characteristics of Speech Clear Facial Symmetry Symmetric Level of Consciousness Alert Aspiration Risk None Eye Opening Response [place] Spontaneously Best Motor Response Luis Felipe Obeys [...] On and Limits Checked Nail Bed Color Crook Capillary Refill < 2 seconds Heart Sounds [...] Movement Makes facial grimaces All Extremity Description Crook Skin Temperature Warm Temperature All Extremities Warm Skin Description [place], Dry Skin Integrity Intact Skin Turgor Non-Elastic Mucous Membrane Color Crook Mucous Membrane Description Moist Sensory Perception [place] [...] Alert Aspiration Risk None Eye Opening Response [place] Spontaneously Best Motor Response Luis Felipe Obeys [...] On and Limits Checked Nail Bed Color Crook Capillary Refill < 2 seconds Heart Sounds [...] intact Skin Turgor Non-Elastic Mucous Membrane Color Crook Mucous Membrane Description Moist Neurological Language Able to speak clearly Neurological Symptoms Patient denies Extremity Movement Equal Swallowing Difficulty None Characteristics of Communication Appropriate Characteristics of Speech Clear Facial Symmetry Symmetric Level of Consciousness Alert Aspiration Risk None Eye Opening Response Luis Felipe Spontaneously Best Motor Response [place] Obeys simple commands Best Verbal Response [place] Oriented Luis Felipe Coma Score 15 CLARA [...] of Bed Elevated 30 01/31/2024 15:38 EDT [facility] Current Living Situation I have a steady place to live [facility] Current Issues Living Environment None [facility] Worried Food Running Out P12M Never true [facility] Food Gone, No Money To Buy P12M Never true [facility] No Transport Med/Appt/Work P12M No [facility] Utilities Threaten Shut Off P12M No [facility] Anyone Physically Hurt You Never (1) [facility] Anyone Insult Or Talk Down To You Never (1) [facility] Anyone Threaten You With Harm Never (1) [facility] Anyone Scream Or Curse At You Never (1) [facility] Safety Total Score 4 Living Situation Lives with family Discharge To, Anticipated Home independently Anticipated Discharge Date 02/02/2024 Transition Planning Note Transition Planning Initial Assessment 01/31/2024 15:36 EDT Primary Care Phone Message Transition of Care sent from [facility] 01/31/2024 14:59 EDT heparin 9,000 unit(s) unit(s) Dextrose 5% Premix Diluent 90 mL mL 01/31/2024 14:43 EDT [place] Body Weight 72.7 kg Home Diet Regular Weight Chg, Unintentional Nutrition Hx Weight stable per [place] history Appetite Good Nutrition Plan of Care Dietitian follow up/monitor, Encourage PO feedings, Participate in team conference Nutrition Follow-Up Needed Yes Days until Industrial Design Engineer Follow Up Seven days Adult Nutrition Initial Assessment/Plan Adult Nutrition Assessment/Plan 01/31/2024 14:22 EDT Transition of Care Note Transition of Care sent from [facility] 01/31/2024 14:00 EDT Hand Right 01/30/2024 [...] On and Limits Checked Nail Bed Color Crook Capillary Refill < 2 seconds Heart Rhythm [...] Description Normal for ethnicity Mucous Membrane Color Crook Mucous Membrane Description Moist Hand Right 01/30/2024 [...] On and Limits Checked Nail Bed Color Crook Capillary Refill < 2 seconds Heart Rhythm [...] intact Skin Turgor Non-Elastic Mucous Membrane Color Crook Mucous Membrane Description Moist Continuous IV Infusions [...] Response Luis Felipe Spontaneously Best Motor Response [place] Obeys simple commands Best Verbal Response Luis Felipe Oriented [place] Coma Score 15 CLARA Yes Left Pupil [...] On and Limits Checked Nail Bed Color Crook Capillary Refill < 2 seconds Heart Rhythm Irregular Pretibial edema Bilateral Edema Ratin+ trace/2mm Cardiac Rhythm Atrial fibrillation Monitoring Lead II, V6/MCL6 Alarms On and Functional Yes Respirations Unlabored Respi (more content not included)... [id number] NoteSINUS RHYTHM IVCD MISSING LEAD(S): V1,V2,V3,V4,V5 Electronic Signature: MOY WATTS MD 02/01/2024 11:10:55[facility] 09-04-2024 Cardiology Consult note Date of [...] anxiety and gout who initially presented to [facility] on 01/30/2024 for shortness of breath and [...] not tolerate Cardizem drip. Patient transferred to [facility] for further management. Placed on Levophed. [...] (s): 1.87 H Assessment/Plan A-fib with RVR ([id number] 2) Near syncopal episode Tachycardia mediated cardiomyopathy [...] Will continue to follow. Patient seen with industrial organization manager Dr. Hartley who agreed with plan. Please [...] MD on 01/31/2024 12:53 PM [id number] Note* Exam Date Time Procedure Performing Provider Status 01/31/24 4:20 PM Echocardiogram, Adult - CV Auth (Verified) [facility] 09-04-2024 Note. MICRO - Microbiology PROCEDURE: [...] This test was performed at: [facility], [address] [place] [address], [facility] , [facility] ([place])01-31-2024 Note. MICRO - Microbiology PROCEDURE: Blood Culture [...] This test was performed at: [facility], [address] [place] [address], [facility]- , [facility] ([place])01-31-2024 Evaluation + Plan noteExtracted from: Title:History and [...] prophylactically got a dose of ceftriaxone at [place]. We will continue with prophylactic ceftriaxone dose [...] atrial fibrillation with rapid ventricular rate at [facility] admitted to the ICU overnight [...] Appointment Date:02/13/2024 03:30:00 PM Scheduled Provider:ISADORA CORREA Location:[facility] Appointment Type: Wellness Annual w/Labs Diagnostic Tests Pending * Culture Respiratory with Gram Stain 01/31/24 * APTT 02/01/24 Future Scheduled Tests Laboratory* Basic Metabolic Panel 04/01/23 * Prostate Specific Antigen 02/07/24 * A1C Hemoglobin 02/07/24 * Lipid Profile 02/07/24 * Complete Metabolic Panel 02/07/24 [facility] 09-04-2024 History and physical note Date [...] evaluated On arrival to the ER at [place], patient was febrile 37.4, tachycardic 133, tachypneic 21, BP 90/76, was saturating 96% on room air. Labs done at [place] 01/30/2024 revealed pO2 51 on the gases [...] prophylactically got a dose of ceftriaxone at [place].We will continue with prophylactic ceftriaxone dose as [...] MD on 01/31/2024 08:06 AM [id number] Cardiology Consult note Date of Service 01/31/2024 [...] anxiety and gout who initially presented to [facility] on 01/30/2024 for shortness of breath and [...] not tolerate Cardizem drip. Patient transferred to [facility] for further management. Placed on Levophed. [...] (s): 1.87 H Assessment/Plan A-fib with RVR ([id number] 2) Near syncopal episode Tachycardia mediated cardiomyopathy [...] Will continue to follow. Patient seen with industrial organization manager Dr. Hartley who agreed with plan. Please [...] MD on 01/31/2024 12:53 PM [id number] NoteATRIAL FIBRILLATION LAD, CONSIDER LEFT ANTERIOR FASCICULAR BLOCK LOW VOLTAGE, PRECORDIAL LEADS BORDERLINE T ABNORMALITIES, INFERIOR LEADS BORDERLINE PROLONGED QT INTERVAL Electronic Signature: MOY WATTS MD 02/01/2024 11:10:[address] [place] [address] 09-04-2024 Note. MICRO - Microbiology PROCEDURE: Blood [...] Locations *1: This test was performed at: [address], [address] [place], [place] [address]-31-2024 Note. MICRO - Microbiology PROCEDURE: Blood Culture [...] Locations *1: This test was performed at: [address], [address] [place], [place] [address]-31-2024 History and physical note Date of Service [...] evaluated On arrival to the ER at [place], patient was febrile 37.4, tachycardic 133, tachypneic 21, BP 90/76, was saturating 96% on room air. Labs done at [place] 01/30/2024 revealed pO2 51 on the gases [...] prophylactically got a dose of ceftriaxone at [place].We will continue with prophylactic ceftriaxone dose as [...] MD on 01/31/2024 08:06 AM [id number] Note ORIGINAL EXAMINATION: CT OF THE HEAD [...] Sign Date: 01/30/2024 10:16:46 PM Ordering Provider: [facility]09-03-2024 Note ORIGINAL EXAMINATION: ONE XRAY VIEW OF [...] Sign Date: 01/30/2024 9:28:12 PM Ordering Provider: [facility]09-03-2024 NoteAtrial flutter Left anterior fascicular block Borderline low voltage, extremity leads Abnormal R-wave progression, late transition Borderline ST depression, lateral leads Prolonged QT interval Baseline wander in lead(s) V3,V5 Electronic Signature: MD SAMY JONES MD 01/30/2024 21:01:46[facility] 03-13-2024 Hospital Discharge instructions Patient Education [...] get worse or if new symptoms appear. 9335-3657 [employer]. [address] [place] [address], [place] [address]. All rights reserved. This information is not intended as a substitute for professional medical care. Always follow yourhealthcare professional's instructions. Follow Up Care 08/09/2023 21:02:01 With:ISADORA CORREA Address: [address] [place] [address]- [phone] Business (1) When:5-7 days Comments:Use warm compresses, Tylenol as discussed, return if any worsening or concerning symptoms. Follow-up closely with your doctor. [facility] 03-13-2024 Note Discharge Instructions Thank you for allowing [facility] to assist you with your healthcare needs. [...] with your doctor. Where: [address] [place] [address] [phone] Business (1) Allergies NKA Medications Please ask [...] get worse or if new symptoms appear. 6349-3389 [employer]. [address] [place] [address], [place] [address]. All rights reserved. This information is not intended as a substitute for professional medical care. Always follow yourhealthcare professional's instructions. Additional Information VACCINATE! IT SAVES LIVES! Members of the community who have not yet received the COVID-19 vaccine and would like to receive it can visit one of [facility] vaccine clinics. There are many vaccine clinic locations within the [facility]. For locations and available times, please visit www.[email or web address]/. It is important to note that some COVID mobile vaccine clinics are held outdoors and may be canceled in rainy or stormy conditions. To learn more about pediatric vaccinations (ages 5-11), we invite you to visit the [facility] webpage. https://www.FilterSures.org/pages/4538-Syuvv-Jcbojahwxaq-Avgwxxdbsn-Qflya-Cfw stions.htmlTo learn more about the COVID-19 vaccine, we invite you to visit the CDC website for a list of frequently asked questions. https://www.cdc.gov/coronavirus/2019-ncov/vaccines/faq.html [facility] Access Instructions: Stay connected with your healthcare team and access your personal medical information anytime with the [facility] Patient Portal. If you would like a full copy of your medical records please contact the [facility] Medical Records Department Monday through Monday between 8a.m. and 4:30p.m. Please follow the directions below to access the portal: 1.Access the email account you provided upon registration to the hospital.2.Look for an invitation email from [facility].3.Open the email and access the invitation link: Accept Invitation to [facility]4.Fill in the required orr to create your account. Sign into [email or web address] with your username and password that you [...] you will allow to register on the [facility] Patient Portal for access to your information. You can also access the [facility] Patient Portal on the foodjunky frida. Simply click on Health Records under [employer] and then click on the [employer]ine[employer] logo. HOW TO SAFELY DISPOSE OF PRESCRIPTION [...] Call your local pharmacy or go to http://Mytopia.netprice.com/[email or web address] to find one close to you.3.Make use of household items: Use cat litter or old coffee grounds to dispose medications if other options arenot available. Mix your drugs with these household products, seal them in an airtight container andthrow it into the garbage. Call [facility]: [phone] to be sure your drugs can be [...] aware that I should contact my doctor. Patient/Boat Pilot Signature: Date/Time: Relationship to Patient: Witness Name/Signature: Date/Time: [facility]01-16-2024 Hospital Discharge instructions Patient Education 06/13/2023 [...] exposed to secondhand smoke. You may use yien-wph-tvwmbmr medicine to control fever or pain, unless [...] loosen secretions in the nose and lungs. Fhhp-ecx-snzkxjm cough, cold, and sore-throat medicines will not [...] shortness of breath, or pain with breathing 4921-5916 [employer]. [address] [place] [address], [place] [address]. All rights reserved. This information is not intended as a substitute for professional medical care. Always follow yourhealthcare professional's instructions. Follow Up Care 06/13/2023 00:01:18 With:ISADORA CORREA Address: [address] [place] [address]- [phone] Business (1) When:3-7 days Comments:Schedule appointment for [...] portal.Return to the ED if symptoms worsen. [facility] 01-16-2024 Note Discharge Instructions Thank you for allowing [facility] to assist you with your healthcare needs. [...] ED if symptoms worsen. Where: [place] [address] [phone] Business (1) Allergies NKA Medications Please ask [...] exposed to secondhand smoke. You may use ijrc-mzt-cdmzsdk medicine to control fever or pain, unless [...] loosen secretions in the nose and lungs. Kzlu-ozq-gfhchty cough, cold, and sore-throat medicines will not [...] shortness of breath, or pain with breathing 9911-4408 [employer]. [address] [place] [address]. All rights reserved. This information is not intended as a substitute for professional medical care. Always follow yourhealthcare professional's instructions. Additional Information VACCINATE! IT SAVES LIVES! Members of the community who have not yet received the COVID-19 vaccine and would like to receive it can visit one of [facility] vaccine clinics. There are many vaccine clinic locations within the [facility]. For locations and available times, please visit [email or web address]/. It is important to note that some COVID mobile vaccine clinics are held outdoors and may be canceled in rainy or stormy conditions. To learn more about pediatric vaccinations (ages 5-11), we invite you to visit the [facility] webpage. https://www.[facility].org/pages/8001-Rqcok-Rkhbbicmcru-Lygrmdztor-Efndk-Lvf stions.htmlTo learn more about the COVID-19 vaccine, we invite you to visit the CDC website for a list of frequently asked questions. https://www.cdc.gov/coronavirus/2019-ncov/vaccines/faq.html [facility] Patient [facility] Access Instructions: Stay connected with your healthcare team and access your personal medical information anytime with the [facility] Patient Portal. If you would like a full copy of your medical records please contact the [facility] Medical Records Department Monday through Monday between 8a.m. and 4:30p.m. Please follow the directions below to access the portal: 1.Access the email account you provided upon registration to the [facility].2.Look for an invitation email from [facility].3.Open the email and access the invitation link: Accept Invitation to [facility]4.Fill in the required orr to create your account. Sign into [email or web address] with your username and password that you [...] you will allow to register on the [facility] Patient Portal for access to your information. You can also access the [facility] Patient Portal on the [employer]. Simply click on Health Records under [employer] [place] and then click on the Co[employer] logo. HOW TO SAFELY DISPOSE OF PRESCRIPTION [...] Call your local pharmacy or go to http://bit.ly/4N8Dr6o to find one close to you.3.Make use of household items: Use cat litter or old coffee grounds to dispose medications if other options arenot available. Mix your drugs with these household products, seal them in an airtight container andthrow it into the garbage. Call [facility]: [phone] to be sure your drugs can be [...] aware that I should contact my doctor. Patient/Boat Pilot Signature: Date/Time: Relationship to Patient: Witness Name/Signature: Date/Time: [facility]01-16-2024 Note ORIGINAL EXAMINATION: ONE XRAY VIEW [...] Date: 06/13/2023 12:39:50 AM Ordering Provider: DEM[facility]01-12-2024 Hospital Discharge instructions Patient Education 06/09/2023 20:03:33 Atrial Fibrillation, Ouau-wd-Ywib Atrial Fibrillation Atrial fibrillation is a type [...] Follow these instructions at home: Medicines Take gwss-him-jjoviup and prescription medicines only as told by [...] 02/21/2009 Document Revised: 07/19/2018 Document Reviewed: 07/06/2018 [facility] Patient Education 2020 [employer]. Follow Up Care 06/06/2023 16:24:50 With:ISADORA CORREA Address: [address] [place] [address]- [phone] When: Unknown Comments:PLEASE CALL THIS OFFICE TO SCHEDULE A HOSPITAL FOLLOW UP APPOINTMENT With:MOY WATTS MD Address: [address] [place] [address] [address] [place], [place] [id number]- [phone] When:07/17/2023 15:15:00 Comments:THIS APPOINTMENT WILL BE WITH ZHOU ESPINOSA CNP [facility] 01-12-2024 Note Discharge Instructions Thank you for allowing [facility] to assist you with your healthcare needs. The following is importantdischarge information regarding your hospital visit. Your Care Team ISADORA CORREA Your Diagnosis Shortness of breath What to do next Scheduled Follow-Up Appointments Appointment Type When With Where Contact InformationPC OV 06/20/2023 02:30 PM EST ISADORA CORREA [facility] OV 07/17/2023 03:15 PM EST ZHOU ESPINOSA [facility] Follow Up Appointments Follow Up with MOY WATTS MD When 07/17/2023 03:15 PM EST Why: THIS APPOINTMENT WILL BE WITH ZHOU ESPINOSA CNP Where: [address] [place] [address] [address] [place], [place] [id number]- [phone] Follow Up with ISADORA CORREA When Why: PLEASE CALL THIS OFFICE TO SCHEDULE A HOSPITAL FOLLOW UP APPOINTMENT Where: [address] [facility] [place] [address]- [phone] The Following Activity and Diet Have Been [...] day Refills: 2 Pickup at [facility] #[id number] Changed FLUoxetine (FLUoxetine 10 mg oral capsule) 1 cap by mouth Once a day Pickup at [facility] #[id number] Unchanged allopurinol (allopurinol 100 mg oral tablet) [...] Daily at bedtime Pharmacy Information [facility] #[id number]: [address] [place] [address] [phone] Please take this list to your next [...] may report side effects to FDA at 6-553-FFU-0971. What other drugs will affect dofetilide? Other drugs may interact with dofetilide, including prescription and zquo-sbm-eeeifev medicines, vitamins, and herbal products. Tell each [...] to ensure that the information provided by [employer]. ('[employer]') is accurate, up-to-date, and complete, but no guarantee is made to that effect. Drug information contained herein may be time sensitive. [employer] information has been compiled for use by healthcare practitioners and consumers in the [place] and therefore [employer] does not warrant that uses outside of the [place] are appropriate, unless specifically indicated otherwise. [employer] drug information does not endorse drugs, diagnose patients or recommend therapy. [employer]s drug information isan informational resource designed to [...] effective or appropriate for any given patient. [employer] does not assume any responsibility for any aspect of healthcare administered with the aid of information [employer] provides. The information contained herein is not intended to cover all possible uses, directions, precautions, warnings, drug interactions, allergic reactions, or adverse effects. If you have questions about the drugs you are taking, check with your doctor, nurse or pharmacist. Copyright 6175-0975 [employer]. Version: 4.01. Revision Date: 09/09/2015. Education Materials [...] Follow these instructions at home: Medicines Take lebq-lxs-gfkiawe and prescription medicines only as told by [...] 02/21/2009 Document Revised: 07/19/2018 Document Reviewed: 07/06/2018 ElseBoxed Patient Education 2020 [employer] Additional Information VACCINATE! IT SAVES LIVES! Members of the community who have not yet received the COVID-19 vaccine and would like to receive it can visit one of [facility] vaccine clinics. There are many vaccine clinic locations within the [facility]. For locations and available times, please visit [email or web address]/. It is important to note that some COVID mobile vaccine clinics are held outdoors and may be canceled in rainy or stormy conditions. To learn more about pediatric vaccinations (ages 5-11), we invite you to visit the [facility] webpage. https://www.[facility].org/pages/2879-Gqsbt-Hjbwbrsmesy-Wvmhoptqgo-Ulred-Doo stions.htmlTo learn more about the COVID-19 vaccine, we invite you to visit the CDC website for a list of frequently asked questions.https://www.cdc.gov/coronavirus/2019-ncov/vaccines/faq.html [facility] Patient Portal Access Instructions: Stay connected with your healthcare team and access your personal medical information anytime with the [facility] Patient Portal. Please follow the directions below to create your [facility] account: 1.Access the email account you provided upon registration to the hospital/physician office.2.Look for an invitation email from [facility].3.Open the email and access the invitation link: AcceptInvitation to [facility].4.Fill in the required orr to create your account. To access your account, visit [email or web address]. Click the blue button labeled Access Patient [...] who you will allowto register on the [facility] Patient Portal for access to your information. You can also access the [facility] Patient Portal on the [facility] frida. Simply click on Patient Portal and then log into your account. If you would like to receive a full copy of your medical records, please contact the [facility] Medical Records Department by calling [phone], Monday through Monday between 8 a.m. and [...] Call your local pharmacy or go to [email or web address] to find one close to you.3.Make use of household items: Use cat litter or old coffee grounds to dispose medications if other options arenot available. Mix your drugs with these household products, seal them in an airtight container andthrow it into the garbage. Call [facility]: [phone] to be sure your drugs can be [...] COPY. Signatures Patient Education Materials Atrial Fibrillation, Maad-qd-Dijl Medication Leaflets Selina My discharge plan and instructions have been reviewed and explained to me and I,SOCORRO KELLEY understand my current condition and have read and understand these discharge instructions. I have received awritten copy of the plan/instructions. If I have questions, I am aware that I should contact my doctor. Patient/Boat Pilot Signature: Date/Time: Relationship to Patient: Witness Name/Signature: Date/Time[facility] Discharge summary Date of Service 06/09/23 Discharge Diagnosis Other persistent atrial fibrillation (I48.19 - ICD-10-CM) Encounter for therapeutic drug level monitoring (Z51.81 - ICD-10-CM) Morbid (severe) obesity due to excess calories (E66.01 - ICD-10-CM) Hypertensive heart disease without heart failure (I11.9 - ICD-10-CM) Gastro-esophageal reflux disease without esophagitis (K21.9 - ICD-10-CM) assisted (current) use of anticoagulants (Z79.01 - ICD-10-CM) Shortness of breath (R06.02 - ICD-10-CM) Additional Orders: Ordered: Communication Order (continuous),06/09/23 12:44:00 EST, ok to DC home after 5th dose of tikosyn this evening as long as QT is reviewed by customer retention specialist fellow, Constant order Ordered: Discharge,06/09/23 12:44:00 EST, [...] qDay, # 30 cap(s), 2 Refill(s), Pharmacy: [facility] #[id number], 176, cm, 06/07/23 13:36:00 EST, Height, kg, 06/07/23 13:36:00 EST, Dosing Weight Ordered: Tikosyn 250 mcg oral capsule,Dose : 250 mcg = 1 cap(s), Oral, BID, # 60 cap(s), 2 Refill(s), Pharmacy: [facility] #[id number], 176, cm, 06/07/23 13:36:00 EST, Height, kg, [...] 07/07/2023 01:00 PM EST [facility] [address] [place] [address]- [phone] Follow Up with ISADORA CORREA APRN-WASTE DISPOSAL LEAKAGE TESTER When Why: PLEASE CALL THIS OFFICE TO SCHEDULE A HOSPITAL FOLLOW UP APPOINTMENT Where: [address] [place] [address]- [phone] Follow Up Appointments No qualifying data available. Follow Up Labs/Studies Discharge Labs No Follow-up Labs Discharge Studies No Follow-up Studies Discharge Diet Discharge Diet - Ordered -- Type of Diet: Cardiac, Sodium limit: 2 gm, 06/09/23 12:44:00 EST Discharge Activity No qualifying data available. Condition on Discharge stable Discharge Disposition home Digitally Signed by AMELIA RENAE MD on 06/09/2023 12:53 PM [id number] Discharge summary Date of Service 06/09/23 Discharge Diagnosis Other persistent atrial fibrillation (I48.19 - ICD-10-CM) Encounter for therapeutic drug level monitoring (Z51.81 - ICD-10-CM) Morbid (severe) obesity due to excess calories (E66.01 - ICD-10-CM) Hypertensive heart disease without heart failure (I11.9 - ICD-10-CM) Gastro-esophageal reflux disease without esophagitis (K21.9 - ICD-10-CM) assisted (current) use of anticoagulants (Z79.01 - ICD-10-CM) Shortness of breath (R06.02 - ICD-10-CM) Additional Orders: Ordered: Communication Order (continuous),06/09/23 12:44:00 EST, ok to DC home after 5th dose of tikosyn this evening as long as QT is reviewed by customer retention specialist fellow, Constant order Ordered: Discharge,06/09/23 12:44:00 EST, [...] qDay, # 30 cap(s), 2 Refill(s), Pharmacy: [facility] #[id number], 176, cm, 06/07/23 13:36:00 EST, Height, kg, 06/07/23 13:36:00 EST, Dosing Weight Ordered: Tikosyn 250 mcg oral capsule,Dose : 250 mcg = 1 cap(s), Oral, BID, # 60 cap(s), 2 Refill(s), Pharmacy: [facility] #[id number], 176, cm, 06/07/23 13:36:00 EST, Height, kg, [...] Where: [address] [facility] [place] [address]- [phone] Follow Up with ISADORA CORREA When Why: PLEASE CALL THIS OFFICE TO SCHEDULE A HOSPITAL FOLLOW UP APPOINTMENT Where: [address] [place], [place] [id number]- [phone] Follow Up Appointments No qualifying data available. Follow Up Labs/Studies Discharge Labs No Follow-up Labs Discharge Studies No Follow-up Studies Discharge Diet Discharge Diet - Ordered -- Type of Diet: Cardiac, Sodium limit: 2 gm, 06/09/23 12:44:00 EST Discharge Activity No qualifying data available. Condition on Discharge stable Discharge Disposition home Digitally Signed by AMELIA RENAE MD on 06/09/2023 12:53 PM [facility] [id number] NoteSINUS RHYTHM LEFT AXIS DEVIATION LOW VOLTAGE, PRECORDIAL LEADS PROLONGED QT INTERVAL POOR R-WAVE PROGRESSION Electronic Signature: SADE STRAUSS MD 06/09/2023 09:53:23[facility] 01-11-2024 Cardiology Progress note Date of [...] MD on 06/08/2023 03:03 PM [facility] [id number] Cardiology Progress note Date of Service 06/08/23 [...] MD on 06/08/2023 03:03 PM [facility] [id number] NoteSINUS RHYTHM LAD, CONSIDER LEFT ANTERIOR FASCICULAR BLOCK LOW VOLTAGE, PRECORDIAL LEADS BORDERLINE PROLONGED QT INTERVAL Poor R wave progression Electronic Signature: SADE STRAUSS MD 06/09/2023 09:53:37[facility] 01-10-2024 NoteSINUS RHYTHM BORDERLINE IVCD WITH LAD LOW VOLTAGE, PRECORDIAL LEADS CONSIDER ANTERIOR INFARCT Electronic Signature: SADE STRAUSS MD 06/08/2023 09:48:12[facility] 01-10-2024 History and physical note Date [...] 107 ms, QT interval approximately 450 ms. [place] interval 184 ms. Renal function, electrolytes pending. [...] MD on 06/07/2023 04:29 PM [facility] HospitalDyrntlzn09-27-9940 NoteSINUS RHYTHM LAD, CONSIDER LEFT ANTERIOR FASCICULAR BLOCK LOW VOLTAGE, PRECORDIAL LEADS Electronic Signature: SADE STRAUSS MD 06/08/2023 09:47:58[facility] 01-10-2024 History and physical note Date [...] 107 ms, QT interval approximately 450 ms. [place] interval 184 ms. Renal function, electrolytes pending. [...] MD on 06/07/2023 04:29 PM [facility] [id number] Evaluation + Plan noteExtracted from: Title:History and [...] Appointment Date:06/20/2023 02:30:00 PM Scheduled Provider:ISADORA CORREA APRN-WASTE DISPOSAL LEAKAGE TESTER Location:[facility] Appointment Type:PC OV Appointment Date:07/17/2023 03:15:00 PM Scheduled Provider:ZHOU ESPINOSA APRN-WASTE DISPOSAL LEAKAGE TESTER Location:[facility] Appointment Type:CV OV Future Scheduled Tests Laboratory* Basic Metabolic Panel 04/01/23 * A1C Hemoglobin 06/09/23 * Lipid Profile 06/09/23 * Complete Metabolic Panel 06/09/23 [facility] 01-10-2024 NoteSINUS RHYTHM MARKEDLY POSTERIOR QRS AXIS LOW VOLTAGE, PRECORDIAL LEADS BORDERLINE PROLONGED QT INTERVAL Electronic Signature: SADE STRAUSS MD 06/08/2023 09:47:38[facility] 12-08-2023 Hospital Discharge instructions Patient Education [...] in vomit, stools (black or red color) 6643-0947 [employer]. [address] [place] [address], [place] [address]. All rights reserved. This information is not [...] Blood in your stool or urine [employer]. [address] [place] [address]. All rights reserved. This information is not [...] will help ease pain. You may use qkbo-rca-mnwoqdg pain medicine such as acetaminophen or ibuprofen [...] or lasts more than an hour [employer]. [address] [place] [address]. All rights reserved. This information is not intended as a substitute for professional medical care. Always follow yourhealthcare professional's instructions. Follow Up Care 05/05/2023 17:11:14 With:ISADORA CORREA Address: [address] [place] [phone] Business (1) When:5-7 days Comments:Follow-up as needed if symptoms or not improving.Limit activity as tolerated.Ice/cold compresses topainful areas.Use Tylenol, Advil or Aleve for pain as needed.Use Cotton as prescribed for severe pain as needed.Take 10 deep breaths on the incentive stridor every hour while awake for the next week as advised.Return to the ED if symptoms worsen. [facility] 12-08-2023 Note Discharge Instructions Thank you for allowing [facility] to assist you with your healthcare needs. [...] or Aleve for pain as needed. Use Cotton as prescribed for severe pain as needed. Take 10 deep breaths on the incentive stridor every hour while awake for the next week as advised. Return to the ED if symptoms worsen. Where: [place] [address]- [phone] Business (1) Allergies NKA Medications Please ask your primary doctor or pharmacist before taking any other medication not listed, including over the counter drugs, herbal medications, vitamins and or supplements as they may interact withyour home medications. What How Much When Why Instructions Last Dose New acetaminophen-hydrocodone (Cotton 325- 5 mg oral tablet) 1 tab(s) [...] cancer screening As directed by provider at [facility]. Unchanged rivaroxaban (Xarelto 20 mg oral tablet) [...] may report side effects to FDA at 6-234-NWS-[phone]. What other drugs will affect acetaminophen and [...] affect acetaminophen and hydrocodone, including prescription and xypk-liw-hqhlnxg medicines, vitamins, and herbal products. Not all [...] to ensure that the information provided by [employer]. ('[employer]') is accurate, up-to-date, and complete, but no guarantee is made to that effect. Drug information contained herein may be time sensitive. [employer] information has been compiled for use by healthcare practitioners and consumers in the [place] and therefore [employer] does not warrant that uses outside of the [place] are appropriate, unless specifically indicated otherwise. [employer]s drug information does not endorse drugs, diagnose patients or recommend therapy. [employer]s drug information isan informational resource designed to [...] effective or appropriate for any given patient. [employer] does not assume any responsibility for any aspect of healthcare administered with the aid of information [employer] provides. The information contained herein is not intended to cover all possible uses, directions, precautions, warnings, drug interactions, allergic reactions, or adverse effects. If you have questions about the drugs you are taking, check with your doctor, nurse or pharmacist. Copyright 4791-7854 [employer]. Version: 19.. Revision Date: 01/16/2023. Education Materials [...] in vomit, stools (black or red color) 6222-3739 [employer]. [address] [place] [address], [place] [address]. All rights reserved. This information is not [...] fainting Blood in your stool or urine 4329-2180 [employer]. [address] [place] [address], [place] [address]. All rights reserved. This information is not [...] will help ease pain. You may use rbgp-spc-tulvezz pain medicine such as acetaminophen or ibuprofen [...] suddenly or lasts more than an hour 3915-9904 [employer]. [address] [place] [address]. All rights reserved. This information is not intended as a substitute for professional medical care. Always follow yourhealthcare professional's instructions. Additional Information VACCINATE! IT SAVES LIVES! Members of the community who have not yet received the COVID-19 vaccine and would like to receive it can visit one of [facility] vaccine clinics. There are many vaccine clinic locations within the [facility]. For locations and available times, please visit www.[email or web address].[place].gov/. It is important to note that some COVID mobile vaccine clinics are held outdoors and may be canceled in rainy or stormy conditions. To learn more about pediatric vaccinations (ages 5-11), we invite you to visit the [facility] webpage. https://www.[facility].org/pages/6232-Mfvax-Ywixkpnifyh-Dnqqujxjyo-Ooegh-Msk stions.htmlTo learn more about the COVID-19 vaccine, we invite you to visit the CDC website for a list of frequently asked questions. https://www.cdc.gov/coronavirus/2019-ncov/vaccines/faq.html [facility] Patient Portal Access Instructions: Stay connected with your healthcare team and access your personal medical information anytime with the [facility] Patient Portal. If you would like a full copy of your medical records please contact the [facility] Medical Records Department Monday through Monday between 8a.m. and 4:30p.m. Please follow the directions below to access the portal: 1.Access the email account you provided upon registration to the [facility].2.Look for an invitation email from [facility].3.Open the email and access the invitation link: Accept Invitation to [facility]4.Fill in the required orr to create your account. Sign into [email or web address] with your username and password that you [...] you will allow to register on the [facility] Patient Portal for access to your information. You can also access the [facility] Patient Portal on the [employer]. Simply click on Health Records under [employer] [place] and then click on the Coiney logo. HOW TO SAFELY DISPOSE OF PRESCRIPTION [...] Call your local pharmacy or go to [email or web address] to find one close to you.3.Make use of household items: Use cat litter or old coffee grounds to dispose medications if other options arenot available. Mix your drugs with these household products, seal them in an airtight container andthrow it into the garbage. Call [facility]: [phone] to be sure your drugs can be [...] aware that I should contact my doctor. Patient/Boat Pilot Signature: Date/Time: Relationship to Patient: Witness Name/Signature: Date/Time: [facility]12-08-2023 Note ORIGINAL EXAMINATION: 2 XRAY VIEWS [...] Sign Date: 05/05/2023 9:08:30 PM Ordering Provider: [facility]12-08-2023 Note ORIGINAL EXAMINATION: ONE XRAY VIEW OF [...] Sign Date: 05/05/2023 9:17:04 PM Ordering Provider: [facility]11-06-2023 Note * Exam Date Time Procedure Performing Provider Status 04/03/23 9:43 AM Echocardiogram, Adult (AOH) Auth (Verified) [facility] 07-28-2023 Hospital Discharge instructions Patient Education [...] Document Reviewed: 05/16/2014 ExitCare Patient Information 2015 [employer]. This information is not intended to replace [...] before eating solid foods. General instructions Take zlqp-eok-efwqqpe and prescription medicines only as told by [...] 09/04/2016 Document Revised: 08/13/2018 Document Reviewed: 09/04/2016 [employer] Patient Education 2020 [employer]. Follow Up Care 12/07/2022 09:52:07 With:ZHOU ESPINOSA APRN-WASTE DISPOSAL LEAKAGE TESTER Address: [address] [facility] [address] [facility] [place] [phone] When: Unknown Comments:Follow-up as scheduled [facility] 07-28-2023 Note Discharge Instructions Thank you for allowing [facility] to assist you with your healthcare needs. The following is importantdischarge information regarding your hospital visit. Your Care Team ISADORA CORREA Your Diagnosis AF (atrial fibrillation) What to do next Scheduled Follow-Up Appointments Appointment Type [facility]/2023 02:30 PM EDT ISADORA CORREA [facility] Follow Up Appointments Follow Up with ZHOU ESPINOSA When Why: Follow-up as scheduled Where: [address] [facility] [place] [phone] Allergies NKA Medications Please ask your primary doctor or pharmacist before taking any other medication not listed, including over the counter drugs, herbal medications, vitamins and or supplements as they may interact withyour home medications. What How Much When Instructions Last Dose New losartan (losartan 100 mg oral tablet) 1 tab(s) by mouth Once a day Refills: 6 Pickup at [facility] #[facility]52 Changed metoprolol (Toprol-XL 50 mg oral tablet, extended release) 1 tab(s) by mouth Two (2) times a day Pickup at [facility] #40897 Unchanged allopurinol (allopurinol 100 mg oral tablet) [...] Duration: 14 Days Pharmacy Information [facility] #[id number]: [address], [place] [phone] What How Much When Comments Stop Taking [...] Document Reviewed: 05/16/2014 ExitCare Patient Information 2015 [employer]. This information is not intended to replace [...] before eating solid foods. General instructions Take dqxr-ekn-dugimgn and prescription medicines only as told by [...] Document Reviewed: 09/04/2016 Elsevier Patient Education 2020 [employer] Additional Information VACCINATE! IT SAVES LIVES! Members of the community who have not yet received the COVID-19 vaccine and would like to receive it can visit one of [facility] vaccine clinics. There are many vaccine clinic locations within the [facility]. For locations and available times, please visit https://[email or web address]/. It is important to note that some COVID mobile vaccine clinics are held outdoors and may be canceled in rainy or stormy conditions. To learn more about pediatric vaccinations (ages 5-11), we invite you to visit the [facility] webpage. https://www.FilterSures.org/pages/6446-Vjugt-Kmzqubevans-Yurfgihowf-Ttsrj-Asd stions.htmlTo learn more about the COVID-19 vaccine, we invite you to visit the CDC website for a list of frequently asked questions.https://www.cdc.gov/coronavirus/2019-ncov/vaccines/faq.html [facility] Patient Portal Access Instructions: Stay connected with your healthcare team and access your personal medical information anytime with the [facility] Patient Portal. Please follow the directions below to create your [facility] account: 1.Access the email account you provided upon registration to the hospital/physician office.2.Look for an invitation email from [facility].3.Open the email and access the invitation link: AcceptInvitation to [facility].4.Fill in the required orr to create your account. To access your account, visit [email or web address]. Click the blue button labeled Access Patient [...] who you will allowto register on the [facility] Patient Portal for access to your information. You can also access the [facility] Patient Portal on the [facility] frida. Simply click on Patient Portal and then log into your account. If you would like to receive a full copy of your medical records, please contact the [facility] Medical Records Department by calling [phone], Monday through Monday between 8 a.m. and [...] Call your local pharmacy or go to [email or web address] to find one close to you.3.Make use of household items: Use cat litter or old coffee grounds to dispose medications if other options arenot available. Mix your drugs with these household products, seal them in an airtight container andthrow it into the garbage. Call [facility]: [phone] to be sure your drugs can be [...] aware that I should contact my doctor. Patient/Boat Pilot Signature: Date/Time: Relationship to Patient: Witness Name/Signature: Date/Time: [facility]07-28-2023 Anesthesiology Consult note Patient: SOCORRO KELLEY Age: 52 years Sex: Male : 1970 Associated Diagnoses: None Author: BRAULIO WRIGHT APRN-PARTY PLAN SALES UNIT ADVISOR Assessment Postanesthesia assessment Vitals: Vital signs from [...] by BRAULIO WRIGHT on 12/23/2022 07:23 AM [facility]07-28-2023 Anesthesiology Consult note Patient: SOCORRO KELLEY [...] Problem list: Medical Anxiety / SNOMED CT 01847183 / Confirmed Atopic dermatitis / SNOMED CT 14122614 / Confirmed BMI 45.0-49.9, adult / SNOMED CT 6032651805 / Confirmed Diabetes mellitus / SNOMED CT 672100061 / Confirmed Hypertension / SNOMED CT 2196666502 / Confirmed Insomnia / SNOMED CT 751827337 / Confirmed Morbid obesity / SNOMED CT 389329595 / Confirmed Chewing tobacco nicotine dependence / SNOMED CT 59741303 / Confirmed Obstructive sleep apnea / SNOMED CT 635534204 / Confirmed Screening for ischemic heart disease / SNOMED CT 431325049 / Confirmed Persistent atrial fibrillation / SNOMED CT 3078507215 / Confirmed Prediabetes / SNOMED CT 7038816014 / Confirmed, Active Problems (16) Anxiety Atopic [...] History: History is unknown. Procedure history: Elbow ([id number]). Comments: 07/11/2022 8:26 SHAHEEN Nunez bursitis - [...] Resp Rate 20 br/min (DEC 23 06:34) JAH324 mmHg (DEC 23 06:34) DBP76 mmHg (DEC 23 06:34) Measurements from flowsheet : Measurements 12/23/2022 6:37 EDT Height 175.3 cm [place] Body Weight 70.74 kg 12/23/2022 6:34 EDT Height 175.3 cm Admission Weight 144 kg [place] Body Weight 70.74 kg Admission Body Mass [...] Surgeon SN - CAt - Role Performed Abrasive Mixer 1 SN - CAt - Role Performed PARTY PLAN SALES UNIT ADVISOR 12/23/2022 6:49 EDT Wrist Left 12/23/2022 20 [...] Person #1 We May Share YAW OSPINA [phone] Designated Person #1 Relationship Sibling Height 175.3 cm Washta Body Weight 70.74 kg Status N/A Sensory [...] evident Teaching Method Explanation Preferred Spoken Language Andorran Preferred Written Language Andorran Information Given by Patient Patient's Current Physicians Patient's Current Physicians Discharge To, Anticipated Home independently Prev Test Positive/Diagnosis w/COVID-19 No Current Quarantine/Isolated any Illness No Any Contact with Sick Animals/Birds No Traveled Anywhere in Last 30 Days No N/A Personal Devices, Patient Valuables None Admission Note-Nursing Procedure/Therapy Intake 12/23/2022 6:34 EDT Height 175.3 cm Admission Weight 144 kg Washta Body Weight 70.74 kg Admission Body Mass [...] Ordered (In Progress) . Assessment and Plan [place] [employer] Anesthesiologists (ASA) physical status classification: Class III. Anesthetic Preoperative Plan Anesthetic technique: MAC. Informed consent: signed by patient. Digitally Signed by BRAULIO WRIGHT APRN-PARTY PLAN SALES UNIT ADVISOR on 12/23/2022 07:21 AM [facility] [id number] Hospital Discharge instructions Patient Education 10/27/2022 06:39:29 [...] Swelling, pain or redness in one leg 5983-2506 [employer]. [address] [place] [address]94. All rights reserved. This information is not [...] very fast heart rate Loss of consciousness 5607-9933 [employer]. [address] [place] [address]346. All rights reserved. This information is not intended as a substitute for professional medical care. Always follow yourhealthcare professional's instructions. Follow Up Care 10/27/2022 05:02:35 With:ISADORA CORREA Address: [address] [facility] [place] [address] [phone] Business (1) When:2-4 days Comments:Follow close with your doctor, continue medications, return if any worsening or concerning symptoms. [facility] 06-01-2023 Note Discharge Instructions Thank you [...] Domínguez N Larry Lund [facility] [place] [address]- [phone] Business (1) Allergies NKA Medications Please ask [...] pain or redness in one leg [employer]. [address] [place] [address]. All rights reserved. This information is not [...] fast heart rate Loss of consciousness [employer]. [address] [place] [address] 69753. All rights reserved. This information is not intended as a substitute for professional medical care. Always follow yourhealthcare professional's instructions. Additional Information VACCINATE! IT SAVES LIVES! Members of the community who have not yet received the COVID-19 vaccine and would like to receive it can visit one of [facility] vaccine clinics. There are many vaccine clinic locations within the State. For locations and available times, please visit www.gettheshot.coronavirus.[place].gov/. It is important to note that some COVID mobile vaccine clinics are held outdoors and may be canceled in rainy or stormy conditions. To learn more about pediatric vaccinations (ages 5-11), we invite you to visit the [facility] webpage. https://www.[facility]s.org/pages/7770-Qpirj-Uzuoytgjyic-Ddusiqgkki-Xepce-Oxi stions.htmlTo learn more about the COVID-19 vaccine, we invite you to visit the CDC website for a list of frequently asked questions. https://www.cdc.gov/coronavirus/2019-ncov/vaccines/faq.html [facility] Patient Portal Access Instructions: Stay connected with your healthcare team and access your personal medical information anytime with the [facility] Patient Portal. If you would like a full copy of your medical records please contact the [facility] Medical Records Department Monday through Monday between 8a.m. and 4:30p.m. Please follow the directions below to access the portal: 1.Access the email account you provided upon registration to the hospital.2.Look for an invitation email from [facility].3.Open the email and access the invitation link: Accept Invitation to [facility]4.Fill in the required orr to create your account. Sign into [email or web address] with your username and password that you [...] you will allow to register on the [facility] Patient Portal for access to your information. You can also access the [facility] Patient Portal on the foodjunky frida. Simply click on Health Records under [employer] [place] and then click on the Coiney logo. HOW TO SAFELY DISPOSE OF PRESCRIPTION [...] Call your local pharmacy or go to http://Mytopia.netprice.com/5R4Al2d to find one close to you.3.Make use of household items: Use cat litter or old coffee grounds to dispose medications if other options arenot available. Mix your drugs with these household products, seal them in an airtight container andthrow it into the garbage. Call [facility]: [phone] to be sure your drugs can be [...] aware that I should contact my doctor. Patient/Boat Pilot Signature: Date/Time: Relationship to Patient: Witness Name/Signature: Date/Time: [facility]06-01-2023 Note ORIGINAL EXAMINATION: ONE XRAY VIEW [...] 10/27/2022 6:14:45 AM Ordering Provider: OLLIE BROOKE [facility]06-01-2023 Note ORIGINAL EXAMINATION: ONE XRAY VIEW [...] by: Darnell Molina MD Preliminary Report By: Orvilleugotom Isaac Electronically signed By Darnell Molina MD Dictated Date: 10/27/2022 5:58:41 AM Prelim Date: 10/27/2022 6:03:50 AM Sign Date: 10/27/2022 6:14:45 AM Ordering Provider: [facility]05-30-2023 Hospital Discharge instructions Patient Education 10/25/2022 [...] your body to your neck and face. 7072-2146 [employer]. [address] [place] [address]. All rights reserved. This information is not [...] vision Extreme drowsiness, confusion, dizziness, or fainting 6554-2571 [employer]. [address] [place] [address], [place] [address]. All rights reserved. This information is not [...] Swelling, pain or redness in one leg 2339-1506 [employer]. [address] [place] [address]. All rights reserved. This information is not [...] veins, fluid leaks out into the tissues. Eagle then causes that fluid to move to [...] away Feeling much more tired than usual 6181-7051 [employer]. [address] [place] [address]. All rights reserved. This information is not intended as a substitute for professional medical care. Always follow [facility] flower hospitalcare professional's instructions. Follow Up Care 10/24/2022 23:09:33 With:Call Physician Referral Address:Unknown When:2-4 days Comments:Call for referral to establish a primary care doctor you can see on a regular basis. With:SADE STRAUSS Address: [address] [facility] [address] [facility] [place] [address] [phone] Business (1) When:2-4 days Comments:Schedule an appointment to establish a industrial organization manager you can see on a regular basis.Double your doseof Lasix from 20 mg once a day to 20 mg twice a day.Continue all other routine medications including the ones you were recently prescribed from [facility].Use potassium supplement and sleep aid (trazodone) as prescribed.Return to the ED if symptoms worsen. [facility] Note Discharge Instructions Thank you for allowing [facility] to assist you with your healthcare needs. [...] Why: Schedule an appointment to establish a industrial organization manager you can see on a regular basis. Double your dose of Lasix from 20 mg once a day to 20 mg twice a day. Continue all other routine medications including the ones you were recently prescribed from [facility]. Use potassium supplement and sleep aid (trazodone) as prescribed. Return to the ED if symptoms worsen. Where: [address] [facility] [address] [facility] [place] [address] [phone] Business (1) Allergies NKA Medications Please ask [...] may report side effects to FDA at 9-255-WYH-6591. What other drugs will affect potassium chloride? Tell your doctor about all your other medicines, especially: medicine to prevent organ transplant rejection; a diuretic or 'water pill'; or heart or blood pressure medication. This list is not complete. Other drugs may affect potassium chloride, including prescription and pdoi-mga-vphulaj medicines, vitamins, and herbal products. Not all [...] to ensure that the information provided by [employer]. ('[employer]') is accurate, up-to-date, and complete, but no guarantee is made to that effect. Drug information contained herein may be time sensitive. [employer] information has been compiled for use by healthcare practitioners and consumers in the [place] and therefore [employer] does not warrant that uses outside of the [place] are appropriate, unless specifically indicated otherwise. [employer]s drug information does not endorse drugs, diagnose patients or recommend therapy. [employer]s drug information isan informational resource designed to [...] effective or appropriate for any given patient. [employer] does not assume any responsibility for any aspect of healthcare administered with the aid of information [employer] provides. The information contained herein is not intended to cover all possible uses, directions, precautions, warnings, drug interactions, allergic reactions, or adverse effects. If you have questions about the drugs you are taking, check with your doctor, nurse or pharmacist. Copyright 3804-4916 [employer]. Version: 14.01. Revision Date: 10/24/2019. trazodone (TRAZ [...] may report side effects to FDA at 6-505-IHT-6108. What other drugs will affect trazodone? Using [...] drugs may affect trazodone. This includes prescription szvgxbk-tlp-lahazfm medicines, vitamins, and herbal products. Not all [...] to ensure that the information provided by [employer]') is accurate, up-to-date, and complete, but no guarantee is made to that effect. Drug information contained herein may be time sensitive. [employer] information has been compiled for use by healthcare practitioners and consumers in the [place] and therefore [employer] does not warrant that uses outside of the [place] are appropriate, unless specifically indicated otherwise. [employer]s drug information does not endorse drugs, diagnose patients or recommend therapy. [employer]s drug information isan informational resource designed to [...] effective or appropriate for any given patient. [facility] does not assume any responsibility for any aspect of healthcare administered with the aid of information [facility] provides. The information contained herein is not intended to cover all possible uses, directions, precautions, warnings, drug interactions, allergic reactions, or adverse effects. If you have questions about the drugs you are taking, check with your doctor, nurse or pharmacist. Copyright 9285-9359 [employer]. Version: 10.. Revision Date: 11/09/2020. Education Materials [...] your body to your neck and face. 2890-9669 [employer]. [address] [place] [address]. All rights reserved. This information is not [...] vision Extreme drowsiness, confusion, dizziness, or fainting 8704-5258 [employer]. [address] [place] [address], [place] [address]. All rights reserved. This information is not [...] Swelling, pain or redness in one leg 2823-0100 [employer]. [address] [place] [address]. All rights reserved. This information is not [...] veins, fluid leaks out into the tissues. Eagle then causes that fluid to move to [...] away Feeling much more tired than usual 3003-0240 [employer]. [address] [place] [address]. All rights reserved. This information is not intended as a substitute for professional medical care. Always follow yourhealthcare professional's instructions. Additional Information VACCINATE! IT SAVES LIVES! Members of the community who have not yet received the COVID-19 vaccine and would like to receive it can visit one of [facility] vaccine clinics. There are many vaccine clinic locations within the [facility]. For locations and available times, please visit www.gettheshot.coronavirus.[place].gov/. It is important to note that some COVID mobile vaccine clinics are held outdoors and may be canceled in rainy or stormy conditions. To learn more about pediatric vaccinations (ages 5-11), we invite you to visit the [facility] webpage. https://www.[facility].org/pages/2910-Qdtkg-Tsjdkofvjuf-Dvgkuvmboj-Unlnp-Ttb stions.htmlTo learn more about the COVID-19 vaccine, we invite you to visit the CDC website for a list of frequently asked questions. https://www.cdc.gov/coronavirus/2019-ncov/vaccines/faq.html [facility] Patient Portal Access Instructions: Stay connected with your healthcare team and access your personal medical information anytime with the [facility] Patient Portal. If you would like a full copy of your medical records please contact the [facility] Medical Records Department Monday through Monday between 8a.m. and 4:30p.m. Please follow the directions below to access the portal: 1.Access the email account you provided upon registration to the [facility].2.Look for an invitation email from [facility].3.Open the email and access the invitation link: Accept Invitation to [facility]4.Fill in the required orr to create your account. Sign into [email or web address] with your username and password that you [...] you will allow to register on the [facility] Patient Portal for access to your information. You can also access the [facility] Patient Portal on the foodjunky frida. Simply click on Health Records under [facility] and then click on the Coiney logo. HOW TO SAFELY DISPOSE OF PRESCRIPTION [...] Call your local pharmacy or go to http://bit.ly/8F2Sw9v to find one close to you.3.Make use of household items: Use cat litter or old coffee grounds to dispose medications if other options arenot available. Mix your drugs with these household products, seal them in an airtight container andthrow it into the garbage. Call [facility]: [phone] to be sure your drugs can be [...] aware that I should contact my doctor. Patient/Boat Pilot Signature: Date/Time: Relationship to Patient: Witness Name/Signature: Date/Time: [facility] [id number] Note ORIGINAL EXAMINATION: CTA OF THE CHEST [...] aortic dissection. Lungs/pleura: Small bilateral pleural effusions players assistant dependently. There is more fluid on the [...] Sign Date: 10/25/2022 1:09:48 AM Ordering Provider: [facility]05-30-2023 Note ORIGINAL EXAMINATION: CTA OF THE [...] aortic dissection. Lungs/pleura: Small bilateral pleural effusions players assistant dependently. There is more fluid on the [...] Sign Date: 10/25/2022 1:09:48 AM Ordering Provider: [facility]05-29-2023 Note ORIGINAL EXAMINATION: ONE XRAY VIEW OF [...] Sign Date: 10/24/2022 11:56:09 PM Ordering Provider: [facility]05-29-2023 Note ORIGINAL EXAMINATION: ONE XRAY VIEW [...] Sign Date: 10/24/2022 11:56:09 PM Ordering Provider: [facility]05-28-[address] Clemens [facility] October 23, 2022 10:40am Note Date/Time October 23, 2022 6:48a m [facility] Medical Records Department [address] [place] [address] Emergency Department Summary 10/23/22 MR#: [id number] Acct: [id number] Name: SOCORRO KELLEY Jr. Rep #:[id number] : 1970 52 From: Jameel Brown DO [...] gets short of breath. Patient states his industrial organization manager is a Dr. Barr out of [facility]. [facility] Medical History (Updated 10/23/22 @ 06:09 by [...] IV and his heart rate is now [id number]. CBC shows no leukocytosis. Hemoglobin macular stable. [...] % (Auto) 67.9 Lymph % (Auto) 19.0 Mcpherson % (Auto) 9.6 Eos % (Auto) 2.4 [...] your Primary Care Provider. Call [facility] ([phone]) or report to the closest Emergency Room. [...] [place]. He does not have a local industrial organization manager. Patient has not taken his Xarelto for [...] (if applicable): cc: ZACARIAS COHN ~* Signed [facility] Work Phone: [phone]) 748-306602-17-2023 Hospital Discharge instructions Patient Education 07/15/2022 21:17:24 [...] temperature. Use toothpaste made for sensitive teeth. [place] gently up and down instead of sideways. Brushing sideways can wear away root surfaces if they are exposed. If your tooth is chipped or cracked, or if there is a large open cavity, put oil of cloves directlyon the tooth to relieve pain. You can buy oil of cloves at drugstores. Some pharmacies carry an mevz-qfs-mpoynla toothache kit. This contains a paste that you can put on the exposed tooth to make it less sensitive. Put a cold pack on your jaw over the sore area to help reduce pain. You may use recc-cjg-hhfrgui medicine to ease pain, unless your doctor [...] healthcare provider Pus drains from the tooth 5815-3467 [employer]. [address] [place] [address]. All rights reserved. This information is not intended as a substitute for professional medical care. Always follow yourhealthcare professional's instructions. Follow Up Care 07/15/2022 20:40:26 With:Dental Referral List Address: When:2-4 days [facility] 02-17-2023 Note Discharge Instructions Thank you for allowing [facility] to assist you with your healthcare needs. [...] When Why Instructions Last Dose New acetaminophen-hydrocodone (Cotton 325- 5 mg oral tablet) 1 tab(s) [...] temperature. Use toothpaste made for sensitive teeth. [place] gently up and down instead of sideways. Brushing sideways can wear away root surfaces if they are exposed. If your tooth is chipped or cracked, or if there is a large open cavity, put oil of cloves directlyon the tooth to relieve pain. You can buy oil of cloves at [facility]. Some pharmacies carry an ksoy-xno-cgcqqwm toothache kit. This contains a paste that you can put on the exposed tooth to make it less sensitive. Put a cold pack on your jaw over the sore area to help reduce pain. You may use plxo-zqd-jwvgzdd medicine to ease pain, unless your doctor [...] healthcare provider Pus drains from the tooth 7245-6754 [employer]. [address] [place] [address]. All rights reserved. This information is not intended as a substitute for professional medical care. Always follow yourhealthcare professional's instructions. Additional Information VACCINATE! IT SAVES LIVES! Members of the community who have not yet received the COVID-19 vaccine and would like to receive it can visit one of [facility] vaccine clinics. There are many vaccine clinic locations within the [facility]. For locations and available times, please visit www.gettheshot.coronavirus.[place].gov/. It is important to note that some COVID mobile vaccine clinics are held outdoors and may be canceled in rainy or stormy conditions. To learn more about pediatric vaccinations (ages 5-11), we invite you to visit the [facility] webpage. https://www.[facility].org/pages/4737-Puijo-Wqtybckxvrf-Rrllngcqgb-Ylaqp-Uol stions.htmlTo learn more about the COVID-19 vaccine, we invite you to visit the CDC website for a list of frequently asked questions. https://www.cdc.gov/coronavirus/2019-ncov/vaccines/faq.html [facility] Patient Portal Access Instructions: Stay connected with your healthcare team and access your personal medical information anytime with the [facility] Patient Portal. If you would like a full copy of your medical records please contact the [facility] Medical Records Department Monday through Monday between 8a.m. and 4:30p.m. Please follow the directions below to access the portal: 1.Access the email account you provided upon registration to the [facility].2.Look for an invitation email from [facility].3.Open the email and access the invitation link: Accept [facility]itation to [facility]4.Fill in the required orr to create your account. Sign into [email or web address] with your username and password that you [...] you will allow to register on the [facility] Patient Portal for access to your information. You can also access the [facility] Patient Portal on the foodjunky frida. Simply click on Health Records under [employer] [place] and then click on the Larry logo. [...] Call your local pharmacy or go to http://bit.netprice.com/4Z8Lz2y to find one close to you.3.Make use of household items: Use cat litter or old coffee grounds to dispose medications if other options arenot available. Mix your drugs with these household products, seal them in an airtight container andthrow it into the garbage. Call [facility]: [phone] to be sure your drugs can be [...] aware that I should contact my doctor. Patient/Boat Pilot Signature: Date/Time: Relationship to Patient: Witness Name/Signature: Date/Time: [facility]02-13-2023 Hospital Discharge instructions Patient Education 07/11/2022 [...] alternate ice and heat. You may use jnrd-pvq-zfnvskq pain medicine to control pain, unless another [...] hand becomes cold, blue, numb, or tingly 1382-0479 [employer]. [address] [place] [address], [place] [address]. All rights reserved. This information is not intended as a substitute for professional medical care. Always follow yourhealthcare professional's instructions. Follow Up Care 07/11/2022 08:20:34 With:DO MELISSA COHN DO Address: [address] [place] [address] [address] [place] [address] When:3-7 days With:Go to emergency room if symptoms worsen Address:Unknown When:2-4 days [facility] 02-13-2023 Note Discharge Instructions Thank you for allowing [facility] to assist you with your healthcare needs. [...] COHN DO When Within 3-7 days Where: [address] [place] [address] [address] [place] [phone] Follow Up with Go to emergency room [...] alternate ice and heat. You may use oaoc-bsv-zpnizdz pain medicine to control pain, unless another [...] hand becomes cold, blue, numb, or tingly 9433-0535 [employer]. [address] [place] [address], [place] [address]. All rights reserved. This information is not intended as a substitute for professional medical care. Always follow yourhealthcare professional's instructions. Additional Information VACCINATE! IT SAVES LIVES! Members of the community who have not yet received the COVID-19 vaccine and would like to receive it can visit one of [facility] vaccine clinics. There are many vaccine clinic locations within the [facility]. For locations and available times, please visit www.[email or web address]. It is important to note that some COVID mobile vaccine clinics are held outdoors and may be canceled in rainy orstormy conditions. To learn more about pediatric vaccinations (ages 5-11), we invite you to visit the [facility] webpage. https://www.[facility]s.org/pages/7693-Vpyri-Yvmjzlzzdts-Tizlbuhnmb-Wfkfi-Lfm stions.htmlTo learn more about the COVID-19 vaccine, we invite you to visit the [facility] website for a list of frequently asked questions. https://larry.org/assets/Strvhzsv-qro-Afwugzzt/unqbw-Aypjpgp-Fqoemgdbrz _Asked-Questions.pdf [facility] Patient Portal Access Instructions: Stay connected with your healthcare team and access your personal medical information anytime with the [facility] Patient Portal. If you would like a full copy of your medical records please contact the [facility] Medical Records Department Monday through Monday between 8a.m. and 4:30p.m. Please follow the directions below to access the portal: 1.Access the email account you provided upon registration to the hospital.2.Look for an invitation email from [facility].3.Open the email and access the invitation link: Accept Invitation to [facility]4.Fill in the required orr to create your account. Sign into [email or web address] with your username and password that you [...] you will allow to register on the [facility] Patient Portal for access to your information. You can also access the [facility] Patient Portal on the [employer]. Simply click on Health Records under [employer] [place] and then click on the Coine[employer] logo. HOW TO SAFELY DISPOSE OF PRESCRIPTION [...] Call your local pharmacy or go to [email or web address] to find one close to you.3.Make use of household items: Use cat litter or old coffee grounds to dispose medications if other options arenot available. Mix your drugs with these household products, seal them in an airtight container andthrow it into the garbage. Call [facility]: [phone] to be sure your drugs can be [...] aware that I should contact my doctor. Patient/Boat Pilot Signature: Date/Time: Relationship to Patient: Witness Name/Signature: Date/Time: [facility]02-13-2023 Note ORIGINAL EXAMINATION: THREE XRAY VIEWS [...] 07/11/2022 8:51:46 AM Ordering Provider: MALORIE PEGUERO [facility]02-13-2023 Note ORIGINAL EXAMINATION: THREE XRAY VIEWS [...] Sign Date: 07/11/2022 8:51:46 AM Ordering Provider: [facility]09-12-[address] [place] [address] PERSONAL HISTORY AND PHYSICAL : Signed Name: SOCORRO KELLEY JR MRUN: [id number] : 1970 Loc: ENDO Age / Sex: 51/ M Adm Status: PRE [facility] Adm Date:02/15/22 Room/Bed: A 51-year-old patient of [facility] in [place], who comes to discuss endoscopy. He has [...] Dictated Date/Time: 02/07/22 1659 Transcribed Date/Time: 02/07/22 1716[facility] Anesthesiology Consult note* CIRILO MCDONOUGH DO: PERFORM, SIGN, VERIFY Event Display: Anesthesiology Consultation Authored Date: [id number] Patient: SOCORRO KELLEY Age: 53 years Sex: [...] device, # 1 EA, 0 Refill(s), Pharmacy: [facility], 177.8, cm, 11/28/23 13:54:00 EDT, Height, 151.4, kg, 11/28/23 13:54:00 EDT, Dosin... Blood Glucose Test Strips: See Instructions, 1 bottle of 100 Test once daily, # 1 EA, 11 Refill(s), Pharmacy: [facility], 177.8, cm, 11/28/23 13:54:00 EDT, Height, 151.4, kg, 11/28/23 13:54:00 EDT, Dosing Weight FLUoxetine 20 mg oral capsule: Dose : 20 mg = 1 cap(s), Oral, qDay, # 30 cap(s), 3 Refill(s), Pharmacy: [facility], 177.8, cm, 11/28/23 13:54:00 EDT, Height, kg, 11/28/23 13:54:00 EDT,Dosing Weight Lancets: See Instructions, qs 1 month supply Test once daily, # 1 EA, 11 Refill(s), Pharmacy: [facility], 177.8, cm, 11/28/23 13:54:00 EDT, Height, 151.4, kg, 11/28/23 13:54:00 EDT, Dosing Weight Lasix 40 mg oral tablet: See Instructions, 1 tab in AM and 0.5 tab in PM, # 135 tab(s), 3 Refill(s), Pharmacy: [facility], 177.8, cm, 11/28/23 13:54:00 EDT, Height, kg, 11/28/23 13:54:00 EDT, Dosing Weight Symbicort 80 mcg-4.5 mcg/inh Inhaler: Dose = 2 puff(s), Inhalation, BID, # 10.2 gram(s), 3 Refill(s), Pharmacy: [facility], 177.8, cm, 11/28/23 13:54:00 EDT, Height, kg, 11/28/23 13:54:00 EDT, Dosing Weight Tikosyn 250 mcg oral capsule: Dose : 250 mcg = 1 cap(s), Oral, BID, # 180 cap(s), 3 Refill(s), Pharmacy: [facility]/pharmacy #[id number], 177.8, cm, 11/28/23 13:54:00 EDT, Height, kg, 11/28/23 13:54:00 EDT, Dosing Weight Toprol-XL 100 mg oral tablet, extended release: Dose : 100 mg = 1 tab(s), Oral, BID, do not crush or chew, # 180 tab(s), 3 Refill(s), Pharmacy: [facility], Shortness of breath, 177.8, cm, 11/28/23 13:54:00 EDT, Height, kg, 11/28/23 13:54:00 EDT, Dosing Weight Trulicity Pen 1.5 mg/0.5 mL subcutaneous solution: Dose : 1.5 mg =, Subcutaneous, qWeek, sent in absence of PCP, # 4 EA, 3 Refill(s), Pharmacy: [facility], 177.8, cm, 11/28/23 13:54:00EDT, Height, kg, 11/28/23 13:54:00 EDT, Dosing Weight Vistaril 25 mg oral capsule: Dose : 25 mg = 1 cap(s), Oral, QID, PRN as needed for anxiety, X 30 day(s), # 120 cap(s), 5 Refill(s), 06/09/24 16:10:00 EST, Pharmacy: [facility], 177.8, cm, 11/28/23 13:54:00 EDT, Height, kg, 11/28/23 13:54:00 EDT, Dosing Weight Xarelto 20 mg oral tablet: Dose : 20 mg = 1 tab(s), Oral, qHS, # 90 tab(s), 3 Refill(s), Pharmacy: [facility], 177.8, cm, 11/28/23 13:54:00 EDT, Height, 151.4, kg, 11/28/23 13:54:00 EDT, Dosing Weight allopurinol 100 mg oral tablet: Dose : 100 mg = 1 tab(s), Oral, qDay, # 90 tab(s), 3 Refill(s), Pharmacy: [facility], 177.8, cm, 11/28/23 13:54:00 EDT, Height, kg, 11/28/23 13:54:00 EDT, Dosing Weight cetirizine 10 mg oral tablet: Dose : 10 mg = 1 tab(s), Oral, Daily, # 90 tab(s), 3 Refill(s), Pharmacy: [facility], 177.8, cm, 11/28/23 13:54:00 EDT, Height, kg, 11/28/23 13:54:00 EDT,Dosing Weight nystatin 100,000 units/g topical cream: Apply 1 frida, Topical, BID, X 10 day(s), # 30 gram(s), 1 Refill(s), Pharmacy: [facility]/pharmacy #[id number], Cream, 177, cm, 01/12/24 9:42:00 EDT, Height, 148.6, kg, 01/12/24 9:42:00 EDT, Dosing Weight omeprazole 40 mg oral delayed release capsule: Dose : 40 mg = 1 cap(s), Oral, BID, before a meal., # 180 cap(s), 3 Refill(s), Pharmacy: [facility], 177.8, cm, 11/28/23 13:54:00 EDT, Height, kg, 11/28/23 13:54:00 EDT, Dosing Weight rosuvastatin 20 mg oral tablet: Dose : 20 mg = 1 tab(s), Oral, Daily, # 100 tab(s), 3 Refill(s), Pharmacy: [facility], 177.8, cm, 11/28/23 13:54:00 EDT, Height, kg, 11/28/23 13:54:00 EDT, Dosing Weight sacubitril-valsartan 49 mg-51 mg oral tablet: Dose = 1 tab(s), Oral, BID, # 180 tab(s), 3 Refill(s), Pharmacy: [facility], 177.8, cm, 11/28/23 13:54:00 EDT, Height, kg, 11/28/23 13:54:00 EDT, Dosing Weight spironolactone 25 mg oral tablet: Dose : 25 mg = 1 tab(s), Oral, qDay, # 90 tab(s), 3 Refill(s), Pharmacy: [facility], 177.8, cm, 11/28/23 13:54:00 EDT, Height, kg, 11/28/23 13:54:00 EDT, Dosing Weight tiZANidine 2 mg oral tablet: Dose : 2 mg = 1 tab(s), Oral, q8h, PRN as needed for muscle spasm, # 90 tab(s), 2 Refill(s), Pharmacy: [facility], 177.8, cm, 11/28/23 13:54:00 EDT, Height, kg, 11/28/23 13:54:00 EDT, Dosing Weight traZODone 100 mg oral tablet: Dose : 100 mg = 1 tab(s), Oral, qHS, # 90 tab(s), 3 Refill(s), Pharmacy: [facility], 177.8, cm, 11/28/23 13:54:00 EDT, [...] list: Medical Asthma exacerbation / SNOMED CT 2174079747 / Confirmed Anxiety / SNOMED CT 75121196 / Confirmed Atopic dermatitis / SNOMED CT 19969536 / Confirmed BMI 45.0-49.9, adult / SNOMED CT 5622270620 / Confirmed Cardiomyopathy / SNOMED CT 175884070 / Confirmed Diabetes mellitus / SNOMED CT 330708392 / Confirmed Generalized anxiety disorder / SNOMED CT 83301860 / Confirmed Hyperlipidemia / SNOMED CT 67315107 / Confirmed Hypertension / SNOMED CT 1294319004 / Confirmed Insomnia / SNOMED CT 202788735 / Confirmed Moderate asthma / SNOMED CT 4385317711 / Confirmed Morbid obesity / SNOMED CT 044060897 / Confirmed Chewing tobacco nicotine dependence / SNOMED CT 99041547 / Confirmed Obstructive sleep apnea / SNOMED CT 276013593 / Confirmed Right knee pain / SNOMED CT 5265173196 / Confirmed Paroxysmal atrial fibrillation / SNOMED CT 090824007 / Confirmed Screening for ischemic heart disease / SNOMED CT 027158326 / Confirmed Screening for colon cancer / SNOMED CT 776705267 / Confirmed Prediabetes / SNOMED CT 9052344613 / Confirmed Right flank pain / SNOMED CT 842909773 / Confirmed Type 2 diabetes mellitus with hemoglobin A1c goal of less than 7.0% / SNOMED CT 956740270 / Confirmed Wheezing / SNOMED CT 94124721 / Confirmed, Active Problems (26) Anxiety Asthma [...] Mother Grandparent Stroke Father Procedure history: Cardioversion ([id number]) on 12/23/2022 at 52 Years. Echocardiogram ([id number]) on 11/11/2022 at 52 Years. Comments: 03/20/2023 [...] atrial pressure is 15 mm Hg Elbow ([id number]). Comments: 07/11/2022 8:26 CRISTINO Sinha, SHAHEEN Hansen [...] On and Limits Checked Nail Bed Color Crook Capillary Refill < 2 seconds Heart Sounds [...] Elimination Voiding, no difficulties All Extremity Description Crook Skin Temperature Warm Temperature All Extremities Warm Skin Description Crook, Dry Skin Integrity Intact Skin Turgor Non-Elastic Mucous Membrane Color Crook Mucous Membrane Description Moist Neurological Language Able to speak clearly Neurological Symptoms Patient denies Gait Unable to assess Extremity Movement Equal Swallowing Difficulty None Characteristics of Communication Appropriate Characteristics of Speech Clear Facial Symmetry Symmetric Level of Consciousness Alert Aspiration Risk None Eye Opening Response Luis Felipe Spontaneously Best Motor Response [place] Obeys simple commands Best Verbal Response Luis [...] On and Limits Checked Nail Bed Color Crook Capillary Refill < 2 seconds Heart Sounds ICU S1S2 Heart Rhythm Irregular Cardiac Rhythm Sinus rhythm Monitoring Lead II, V5/MCL5 [place] Interval 0.16 second(s) QRS Duration 0.08 second(s) [...] Elimination Voiding, no difficulties All Extremity Description Crook Skin Temperature Warm Temperature All Extremities Warm Skin Description Crook, Dry Skin Integrity Intact Skin Turgor Non-Elastic Mucous Membrane Color Crook Mucous Membrane Description Moist Neurological Language Able to speak clearly Neurological Symptoms Patient denies Gait Unable to assess Extremity Movement Equal Swallowing Difficulty None Characteristics of Communication Appropriate Characteristics of Speech Clear Facial Symmetry Symmetric Level of Consciousness Alert Aspiration Risk None Eye Opening Response [place] Spontaneously Best Motor Response [place] Obeys simple commands Best Verbal Response [place] Oriented [place] Coma Score 15 CLARA Yes Strength All [...] date/time 01/31/2024 22:20 Provider Notified MILY MAURER APRN-WASTE DISPOSAL LEAKAGE TESTER Notification Method Pager Information Communicated Medication request [...] On and Limits Checked Nail Bed Color Crook Capillary Refill < 2 seconds Heart Sounds [...] Movement Makes facial grimaces All Extremity Description Crook Skin Temperature Warm Temperature All Extremities Warm Skin Description [place], Dry Skin Integrity Intact Skin Turgor Non-Elastic Mucous Membrane Color [place] Mucous Membrane Description Moist Sensory Perception [place] [...] Alert Aspiration Risk None Eye Opening Response [place] Spontaneously Best Motor Response [place] Obeys simple commands Best Verbal Response Luis Felipe Oriented [place] Coma Score 15 CLARA Yes Left Pupil [...] On and Limits Checked Nail Bed Color Crook Capillary Refill < 2 seconds Heart Sounds [...] intact Skin Turgor Non-Elastic Mucous Membrane Color Crook Mucous Membrane Description Moist Neurological Language Able to speak clearly Neurological Symptoms Patient denies Extremity Movement Equal Swallowing Difficulty None Characteristics of Communication Appropriate Characteristics of Speech Clear Facial Symmetry Symmetric Level of Consciousness Alert Aspiration Risk None Eye Opening Response [place] Spontaneously Best Motor Response [place] Obeys simple commands Best Verbal Response Luis [...] of Bed Elevated 30 01/31/2024 15:38 EDT [facility] Current Living Situation I have a steady place to live [facility] Current Issues Living Environment None [facility] Worried Food Running Out P12M Never true [facility] Food Gone, No Money To Buy P12M Never true AH No Transport Med/Appt/Work P12M No [facility] Utilities Threaten Shut Off P12M No C Anyone Physically Hurt You Never (1) [facility] Anyone Insult Or Talk Down To You Never (1) [facility] Anyone Threaten You With Harm Never (1) [facility] Anyone Scream Or Curse At You Never (1) [facility] Safety Total Score 4 Living Situation Lives with family Discharge To, Anticipated Home independently Anticipated Discharge Date 02/02/2024 Transition Planning Note Transition Planning Initial Assessment 01/31/2024 15:36 EDT Primary Care Phone Message Transition of Care sent from [facility] 01/31/2024 14:59 EDT heparin 9,000 unit(s) unit(s) Dextrose 5% Premix Diluent 90 mL mL 01/31/2024 14:43 EDT [place] Body Weight 72.7 kg Home Diet Regular Weight Chg, Unintentional Nutrition Hx Weight stable per [place] history Appetite Good Nutrition Plan of Care Dietitian follow up/monitor, Encourage PO feedings, Participate in team conference Nutrition Follow-Up Needed Yes Days until Industrial Design Engineer Follow Up Seven days Adult Nutrition Initial Assessment/Plan Adult Nutrition Assessment/Plan 01/31/2024 14:22 EDT Transition of Care Note Transition of Care sent from [facility] 01/31/2024 14:00 EDT Hand Right 01/30/2024 [...] On and Limits Checked Nail Bed Color Crook Capillary Refill < 2 seconds Heart Rhythm [...] Description Normal for ethnicity Mucous Membrane Color Crook Mucous Membrane Description Moist Hand Right 01/30/2024 [...] On and Limits Checked Nail Bed Color Crook Capillary Refill < 2 seconds Heart Rhythm [...] intact Skin Turgor Non-Elastic Mucous Membrane Color Cro[place] Mucous Membrane Description Moist Continuous IV Infusions [...] Response Luis Felipe Spontaneously Best Motor Response [place] Obeys simple commands Best Verbal Response [place] Oriented Luis Felipe Coma Score 15 CLARA [...] On and Limits Checked Nail Bed Color Crook Capillary Refill < 2 seconds Heart Rhythm [...] Description Normal for ethnicity Mucous Membrane Color [place] Mucous Membrane Description Moist Continuous IV Infusions [...] On and Limits Checked Nail Bed Color [place] Capillary Refill < 2 seconds Heart Rhythm [...] intact Skin Turgor Non-Elastic Mucous Membrane Color [place] Mucous Membrane Description Moist Continuous IV Infusions [...] Response Luis Felipe Spontaneously Best Motor Response [place] Obeys simple commands Best Verbal Response [place] Oriented [place] Coma Score 15 CLARA Yes Left Pupil [...] On and Limits Checked Nail Bed Color Crook Capillary Refill < 2 seconds Heart Rhythm [...] intact Skin Turgor Non-Elastic Mucous Membrane Color [place] Mucous Membrane Description Moist Continuous IV Infusions [...] On and Limits Checked Nail Bed Color [place] Capillary Refill < 2 seconds Heart Rhythm [...] intact Skin Turgor Non-Elastic Mucous Membrane Color Crook Mucous Membrane Description Moist Hand Right 01/30/2024 [...] Alert Aspiration Risk None Eye Opening Response [place] Spontaneously Best Motor Response Luis Felipe Obeys simple commands Best Verbal Response Luis Felipe Oriented [place] Coma Score 15 CLARA Yes Left Pupil [...] EDT Designated Person #1 We May Share [facility] MARILYN OSP[place] [phone] Designated Person #1 Relationship Sibling Designated Person #2 We May Share PHI Designated Person #2 We May Share [facility] Designated Person #2 Relationship Significant other Privacy Restrictions Requested None Height 175 cm Height in inches 68.9 inch(es) Admission Weight 149.1 kg Weight Lbs 328 lb [place] Body Weight 70.46 kg BSA Admission 2.55 [...] evident Teaching Method Explanation Preferred Spoken Language Andorran Preferred Written Language Andorran Teaching Evaluation No further teaching needed Safety [...] On and Limits Checked Nail Bed Color Crook Capillary Refill < 2 seconds Heart Sounds [...] intact Skin Turgor Non-Elastic Mucous Membrane Color Cro[place] Mucous Membrane Description Moist Sensory Perception [place] [...] Alert Aspiration Risk None Eye Opening Response [place] Spontaneously Best Motor Response [place] Obeys simple commands Best Verbal Response [place] Oriented [place] Coma Score 15 CLARA Yes Left Pupil [...] explained to patient, Risks and benefits explained [facility] member services representative Transferring Physician MD SAMY JONES MD [...] Transfer Ground ambulance Required Personnel for Transfer Nuclear Cardiology Technologist Ambulance Service [facility] Amb[facility] Nursing [facility] MICU Discharged to Another hospital 01/31/2024 [...] 250 mL mL . Assessment and Plan [place] [employer] Anesthesiologists (ASA) physical status classification: [...] DO on 02/01/2024 06:26 AM [facility] Evaluation + Plan note No data available for this section [facility] Evaluation + Plan note Future Appointments Appointment Date:11/03/2022 09:15:00 AM Scheduled Provider:ZHOU ESPINOSA Location:[facility] Appointment Type:CV BANKING TEACHER Appointment Date:11/08/2022 02:00:00 PM Scheduled Provider:ISADORA CORREA Location:[facility] Appointment Type:PC BANKING TEACHER Unassigned ED Follow Up [facility] Evaluation + Plan note Future Appointments Appointment Date:11/04/2022 08:45:00 AM Scheduled Provider: Location:[facility] Appointment Type:CV BANKING TEACHER Appointment Date:11/08/2022 02:00:00 PM Scheduled Provider:ISADORA CORREA Location:[facility] Appointment Type:PC BANKING TEACHER Unassigned ED Follow Up [facility] Evaluation + Plan note Future Appointments Appointment Date:12/13/2022 03:00:00 PM Scheduled Provider:ISADORA CORREA Location:[facility] Appointment Type:PC OV Follow Up [facility] Evaluation + Plan note Future Appointments Appointment Date:02/07/2023 02:30:00 PM Scheduled Provider:ISADORA CORREA Location:[facility] Appointment Type:PC OV [facility] Evaluation + Plan note Future Appointments Appointment Date:06/20/2023 02:30:00 PM Scheduled Provider:ISADORA CORREA Location:[facility] Appointment Type:PC OV Future Scheduled Tests Laboratory* Basic Metabolic Panel 04/01/23 * A1C Hemoglobin 06/09/23 * Lipid Profile 06/09/23 * Complete Metabolic Panel 06/09/23 [facility] Evaluation + Plan note Future Appointments Appointment Date:08/22/2023 12:00:00 PM Scheduled Provider: Location:[facility] Appointment Type:PF PFT w/Bronchod[place]or Appointment Date:11/07/2023 02:00:00 PM Scheduled Provider:ISADORA CORREA Location:[facility] Appointment Type:PC OV Future Scheduled Tests Laboratory* Basic Metabolic Panel 04/01/23 [facility] Evaluation + Plan note Future Appointments Appointment Date:11/07/2023 02:00:00 PM Scheduled Provider:ISADORA CORREA Location:[facility] Appointment Type:PC OV Future Scheduled Tests Laboratory* Basic Metabolic Panel 04/01/23 [facility] Evaluation + Plan note Future Appointments Appointment Date:06/20/2023 10:00:00 AM Scheduled Provider:ISADORA CORREA Location:[facility] Appointment Type:PC OV Hospital Follow-Up Appointment Date:06/20/2023 02:30:00 PM Scheduled Provider:ISADORA CORREA Location:[facility] Appointment Type:PC OV Appointment Date:07/17/2023 03:15:00 PM Scheduled Provider:ZHOU ESPINOSA Location:[facility] Appointment Type:CV OV Future Scheduled Tests Laboratory* Basic Metabolic Panel 04/01/23 * A1C Hemoglobin 06/09/23 * Lipid Profile 06/09/23 * Complete Metabolic Panel 06/09/23 [facility] Evaluation + Plan note Future Appointments Appointment Date:02/13/2024 03:30:00 PM Scheduled Provider:ISADORA CORREA Location:[facility] Appointment Type:PC Wellness Annual w/Labs Future Scheduled Tests Laboratory* Basic Metabolic Panel 04/01/23 * Prostate Specific Antigen 02/07/24 * A1C Hemoglobin 02/07/24 * Lipid Profile 02/07/24 * Complete Metabolic Panel 02/07/24 [facility] Evaluation + Plan note Future Appointments Appointment Date:03/26/2024 08:00:00 PM Scheduled Provider: Location:[facility] Appointment Type: Sameer Study Appointment Date:05/14/2024 03:00:00 PM Scheduled Provider:ISADORA CORREA Location:[facility] Appointment Type:PC OV Lab Check Future Scheduled Tests Laboratory* Basic Metabolic Panel 02/07/24 * Basic Metabolic Panel 02/19/24 * Basic Metabolic Panel 04/01/23 * Magnesium Level 02/07/24 * A1C Hemoglobin 05/14/24 * Lipid Profile 05/14/24 * Complete Metabolic Panel 05/14/24 [facility] Evaluation + Plan note Future Appointments Appointment Date:04/01/2024 01:00:00 PM Scheduled Provider:DAMIAN SHRESTHA MD Location:[facility] Appointment Type:GS OV Appointment Date:05/14/2024 03:00:00 PM Scheduled Provider:ISADORA CORREA Location:[facility] Appointment Type:PC OV Lab Check Future Scheduled Tests Laboratory* Basic Metabolic Panel 02/07/24 * Basic Metabolic Panel 02/19/24 * Basic Metabolic Panel 04/01/23 * Magnesium Level 02/07/24 * A1C Hemoglobin 05/14/24 * Lipid Profile 05/14/24 * Complete Metabolic Panel 05/14/24 [facility] Evaluation + Plan note Future Appointments Appointment Date:02/13/2024 03:30:00 PM Scheduled Provider:ISADORA CORREA Location:[facility] Appointment Type:PC Wellness Annual w/Labs Future Scheduled Tests Laboratory* Basic Metabolic Panel 02/07/24 * Basic Metabolic Panel 02/19/24 * Basic Metabolic Panel 04/01/23 * Magnesium Level 02/07/24 [facility] Evaluation + Plan note Future Appointments Appointment Date:08/12/2024 03:00:00 PM Scheduled Provider:ISADORA CORREA Location:[facility] Appointment Type: Wellness Annual Future Scheduled Tests Laboratory* Basic Metabolic Panel 02/07/24 * Basic Metabolic Panel 02/19/24 * Magnesium Level 02/07/24 [facility] Evaluation + Plan note Future Appointments Appointment Date:10/23/2024 04:00:00 PM Scheduled Provider:ISADORA CORREA Location:[facility] Appointment Type:PC OV Appointment Date:11/08/2024 02:30:00 PM Scheduled Provider:EDY WEBER Location:[facility] Appointment Type:[facility] Hospital Follow Up Future Scheduled Tests Laboratory* Basic Metabolic Panel 02/07/24 * Basic Metabolic Panel 12/10/24 * Basic Metabolic Panel 02/19/24 * Magnesium Level 02/07/24 * Complete Blood Count 08/27/24 * Complete Metabolic Panel 08/27/24 * N-Terminal proBNP 08/27/24 [facility] Evaluation noteNo assessment information available [facility] Work Phone: Hospital Discharge instructions Additional Instructions Call Dr. Etienne's office on Monday to be seen later this coming week.[facility] Work Phone: Hospital Discharge instructions No data available for this section [facility] Hospital Discharge instructions Additional Instructions Chest x-ray negative. COVID and flu negative. Vapor rubs, humidifier. May use loratadine D that you have at home daily. Cough suppressants as needed. Follow-up with your doctor. Return if any worsening symptoms.[facility] Work Phone: Progress note No data available for this section [facility] Summary note* MACIEJ Rasmussen: PERFORM Event Display: Patient Summary Documents Authored Date: [facility] Summary Purpose Family History No Family [...] October 23, 2022 6 :09am Power of Gallery Director No October 23, 2022 6:09am Advance Directive Response Recorded Date/ Time Living Will No February 12, 2023 7:08am Power of Gallery Director No January 7:08am Chief Complaint and Reason [...] section and content) DATE CREATED AUTHOR 02/15/2021 [facility] ital DATE CREATED AUTHOR AUTHOR'S ORGANIZ ATION 08/25/2021 [facility] DATE CREATED AUTHOR AUTHOR'S ORGANIZ ATION 2021 [employer] DATE CREATED AUTHOR AUTHOR'S ORGANIZ ATION 06/07/2022 [facility] DATE CREATED AUTHOR AUTHOR'S ORGANIZ ATION 08/17/2022 [facility] DATE CREATED AUTHOR AUTHOR'S ORGANIZ ATION 10/13/2023 [facility] DATE CREATED AUTHOR AUTHOR'S ORGANIZ ATION 02/02/2024 [facility] ([place]) DATE CREATED AUTHOR AUTHOR'S ORGANIZ ATION 10/07/2024 [facility] DATE CREATED AUTHOR AUTHOR'S ORGANIZ ATION 10/23/2024 [facility] DATE CREATED AUTHOR AUTHOR'S ORGANIZ ATION 11/03/2024 [facility] DATE CREATED AUTHOR AUTHOR'S ORGANIZ ATION 11/04/2024 [facility] Care Team (unrecognized sect ion and content) Care Team Personnel Name: PHYSICIAN, NONE Position: Physician Member Role: Primary Care Physician Name: MALORIE PEGUERO MD Position: ED Physician Member Role: ED Physician Address: Address: [facility] [address] [place] [address]- Name: SHAHEEN Sinha Position: AO RN Member Role: ED RN Care Team Related Persons Name: MAST, MARILYN Care Team Personnel Name: PHYSICIAN, NONE Position: Physician Member Role: Primary Care Physician Name: JEREMIE MCCORMACK MD Position: ED Physician Member Role: ED Physician Address: Address: [facility] [address] [place] [address]- Name: Halley Staples RN Position: AO RN [...] Bright MD Family Provider Active Isadora Correa BANKING TEACHER, BANKING TEACHER-C Primary Care Provider Active Team Status: Inactive Member Role Status Dates Dr. Jameel Brown , Attending Provider, Emergency Provider Active ROMAIN ADAMES Primary Care Provider Active Team Status: Inactive Member Role Status Dates Dr. Nguyễn Al , Emergency Provider Active Isadora Correa BANKING TEACHER, BANKING TEACHER-C Primary Care Provider Active Goals (unrecognized section [...] BE BASED ON THE PRIMARY CLINICAL RECORDS. [email or web address] provides no warranty or guarantee of the accuracy or completeness of information in this document.
[2024-11-06 08:01] LABS: Anion Gap 9 (5-15); BUN 13 mg/dL (4-19); BUN/Creat Ratio 14.9 RATIO (10-20); Calcium,Total 9.2 mg/dL (7.6-11.0); Carbon Dioxide 27.9 mmol/L (21.0-32.0); Chloride 100 mmol/L (98-108); Creatinine, Serum 0.87 mg/dL (0.70-1.20); EST Glomerular Filtration Rate 103 (>60); Glucose 104 mg/dL (70-99); Potassium 4.4 mmol/L (3.3-5.1); Sodium Level 136 mmol/L (133-145)
== END ==
LOC: OLS.SW 04:00
PROVIDERS: PCP Nurse Practitioner Family; Referring Provider Internal Medicine; Visit Provider Internal Medicine
DX: E11.9 Type 2 diabetes mellitus without complications (principal); J44.9 Chronic obstructive pulmonary disease, unspecified; S82.841D Displaced bimalleolar fracture of right lower leg, subsequent encounter for closed fracture with routine healing
CPT/HCPCS: 36415; 80048

== ENCOUNTER 2024-12-19 22:18 | Emergency (ER) | payer MEDICAID, SELFPAY ==
[2024-12-19 22:20] VITALS: BP 135/79; PULSE 81; RESP 18; TEMP 36.8; O2SAT 98; BMI 47.5
--- NOTE | 2024-12-19 22:26 | EKG12_ITS ---
Test Reason : CP Blood Pressure : */* mmHG Vent. Rate : 82 BPM Atrial Rate : 82 BPM P-R Int : 160 ms QRS Dur : 88 ms QT Int : 390 ms P-R-T Axes : 28 -43 25 degrees QTcB Int : 455 ms Normal sinus rhythm Left axis deviation Abnormal ECG Confirmed by CONCETTA XIE MD ([id number]), editor city DONNA TOLENTINO ([id number]) on 12/23/2024 9:43:55 AM Referred By: TL Confirmed By: CONCETTA XIE MD
--- NOTE | 2024-12-19 22:26 | EDS_ITS ---
HPI History of Present Illness Chief Complaint: Chest Pain Informant: patient Narrative Narrative: Brought in by EMS [facility] chest pain at rest. Intermittent sharp sensation and reports dyspnea with it. No recent cough. No nausea. No radicular symptoms. History of paroxysmal A-fib on Coumadin. 8 weeks ago right ankle fracture dislocation with current Ex-Fix. He was manage at [place]. He has been at the facility for 2 weeks. Decreased mobility. Diabetes hypertension GERD history. Denies history of MIs, no history of coronary stents.COPD and asthma history. Currently mild symptoms. Placed on oxygen by EMS. Does not wear home oxygen. There is no reported hypoxia. Prior Similar Symptoms: No CVD Risk Factors: Positive for Hypertension and Diabetes PE Risk Factors: Positive for Recent Travel/Surgery; Negative for Recent Immobilization, Prior DVT or PE or Cancer [facility] Medical History Ankle fracture, right Insomnia Obstructive sleep apnea Depression Hyperlipemia Cardiomyopathy Muscle weakness (generalized) Anxiety Asthma Type 2 diabetes mellitus COPD (chronic obstructive pulmonary disease) CHF (congestive heart failure) Glaucoma Gout Diabetes Hypertension Home Medications ?Medication ?Instructions ?Recorded ?Last Taken ?Type allopurinol 100 mg tablet 100 mg PO DAILY 10/23/22 Unk nown History amlodipine 5 mg tablet 5 mg PO DAILY 10/23/22 Unkno wn History brimonidine 0.15 % eye drops 1 drp EACH EYE QHS Unknown History (Alphagan P) furosemide 20 mg tablet (Lasix) 20 mg PO DAILY #30 tab s 10/23/22 Unknown Rx hydrochlorothiazide 50 mg tablet 50 mg PO DAILY Unknown History lisinopril 40 mg tablet 40 mg PO DAILY 10/23/22 Unkn own History metformin 500 mg tablet,extended 500 mg PO QPM 3 Unknown History release 24 hr metoprolol tartrate 25 mg tablet 25 mg PO BID #60 tabs 10/23/22 Unknown Rx omeprazole 40 mg capsule,delayed 40 mg PO DAILY Unknown History release rivaroxaban 20 mg tablet (Xarelto) 20 mg PO DAILY #30 tabs 10/23/22 Unknown Rx timolol maleate 0.25 % eye drops 1 drp EACH EYE DAILY 10/23/22 Unknown History benzonatate 200 mg capsule 200 mg PO TID PRN cough #20 caps 02/12/23 Unknown Rx albuterol sulfate 2.5 mg/3 mL mg 12/19/24 Unknown Hist ory (0.083 %) solution for nebulization bempedoic acid 180 mg tablet 180 mg PO DAILY 12/19/24 Unknown History (Nexletol) dofetilide 250 mcg capsule 250 mcg PO BID 12/19/24 Unk nown History duloxetine 20 mg capsule,delayed 20 mg PO DAILY Unknown History release hydroxyzine pamoate 25 mg capsule PO 12/19/24 Unknown History metoprolol succinate 100 mg 100 mg PO BID 12/19/24 Unk nown History tablet,extended release 24 hr potassium chloride 20 mEq 20 meq PO DAILY 12/19/24 Unk nown History tablet,extended release(part/cryst) pravastatin 40 mg tablet 40 mg PO DAILY 12/19/24 Unkn own History rivaroxaban 10 mg tablet (Xarelto) 20 mg PO DAILY 11/27 09/20 Unknown History spironolactone 25 mg tablet 25 mg PO DAILY 12/19/24 Un known History tizanidine 2 mg tablet 2 mg PO TID 12/19/24 Unknown History tramadol 50 mg tablet 50 mg PO 4X/DAY PRN PRN pain 12/19/24 Unknown History trazodone 100 mg tablet 100 mg PO QHS 12/19/24 Unkno wn History Allergy/AdvReac Type Severity Reaction Status Date / Time [id number] Reductase Allergy Mild Hives Verified 12/19/24 22:20 Inhibitor Family History no significant family his Social History Smoking Status: Former smoker ROS ROS ED Constitutional Constitutional ED: Denies chills, fever(s) or sweats ENT ENT ED: Denies sore throat Cardiovascular Cardiovascular: Reports chest pain; Denies leg edema, palpitations or racing heartbeat Respiratory/Chest Respiratory/Chest: Reports dyspnea; Denies cough or dyspnea on exertion Gastrointestinal Gastrointestinal: Denies abdominal pain, diarrhea, nausea or vomiting Genitourinary Genitourinary ED: Denies dysuria, hematuria or urinary frequency Musculoskeletal Musculoskeletal: Denies back pain, extremity pain or neck pain Integumentary Denies rash or wounds Neurologic Neurologic: Denies headache(s), paresthesias or weakness EXAM Physical Exam Const Vital Signs: 12/19/24 22:20 12/19/24 22:29 12/19/24 22:30 Temperature 98.3 F 98.3 F Temperature Source Oral Oral Pulse Rate 81 88 Respiratory Rate 18 18 Blood Pressure 135/79 H 135/79 H Blood Pressure Mean 97 97 Pulse Ox 98 94 Oxygen Delivery Method Room Air Room Air Room Air Oxygen Flow Rate (L/min) 12/19/24 23:28 12/19/24 23:29 12/19/24 23:30 Temperature 98.3 F Temperature Source Oral Pulse Rate 72 Respiratory Rate 20 H Blood Pressure 132/67 H Blood Pressure Mean 88 Pulse Ox 83 96 94 Oxygen Delivery Method Room Air Nasal Cannula Nasal Cannula Oxygen Flow Rate (L/min) 2 2 12/20/24 00:00 12/20/24 01:00 12/20/24 02:00 Temperature 98.2 F 98.2 F 98.2 F Temperature Source Oral Oral Oral Pulse Rate 72 70 62 Respiratory Rate 18 18 17 Blood Pressure 135/79 H 115/63 109/58 L Blood Pressure Mean 97 80 75 Pulse Ox 95 94 98 Oxygen Delivery Method Nasal Cannula Nasal Cannula Nasal Cannula Oxygen Flow Rate (L/min) 2 2 2 12/20/24 02:36 12/20/24 03:00 Temperature 98.2 F Temperature Source Pulse Rate 66 61 Respiratory Rate 16 17 Blood Pressure 109/58 L 126/82 H Blood Pressure Mean 75 96 Pulse Ox 98 97 Oxygen Delivery Method Room Air Oxygen Flow Rate (L/min) Positive well nourished and well developed Constitutional Narrative: 2 L nasal cannula. General Appearance ED: well developed and NAD HEENT Reports moist mucous membranes normocephalic and atraumatic Eyes General Eye ED: Yes normal appearance of both eyes Neck full ROM Chest Wall Chest: Negative for tenderness Resp normal respiratory effort and normal air movement Effort and Inspection: symmetric chest movement; Negative for respiratory distress Cardio regular rate, regular rhythm and no murmurs Peripheral Pulses: pulses 2+ throughout GI normal to inspection, nondistended, normoactive bowel sounds and non-tender Palpation: Negative for guarding or rebound tenderness present Extremity Extremity Narrative: Right lower extremity: Ex-Fix device of the ankle with dressings clean, dry, intact. General Extremety ED: Yes edema and tenderness General Extremity: edema Neuro oriented x3 and no sensory deficits noted Sensorium / Orientation: awake and alert Skin no rashes or lesions noted and no wounds Heart Score History: Slightly/Non-Suspicious ECG: Normal Age: >45 - <65 years Risk Factors: >/= 3 Risk Factors or History of CAD Troponin: </= Normal Limit Score: 3 MDM MDM MDM Narrative Medical decision making narrative: Interventions / MDM: Differential diagnosis: Chest pain, hypoxia, sleep apnea, status post right lower extremity external fixation Diagnosis considered but do not suspect: Pulmonary embolism, pneumonia however CT scan negative. ACS however workup negative. My EKG interpretation: Sinus rhythm 82, no ST or T wave changes. QTc 455. Imaging independently reviewed and interpreted by myself: 1 view chest x-ray: Questionable right mid zone opacity artifactual versus infiltrate versus atelec tasis per radiology. CT angiogram chest: No PE no consolidations read by radiologist. External documents reviewed: N/A Test considered but not ordered:N/A ED course: Chest pain 20 minutes prior arrival. EKG normal. Cardiac workup initiated. He is on warfarin we will check INR. 2304: Hemoglobin 13.7, white count 8.4. Chest x-ray question opacity versus infiltrate versus atelectasis. He has no cough or concerns for pneumonia. His INR returned subtherapeutic 1.5. He is not hypoxic therefore this time we will check a D-dimer. Currently symptom-free. Oxygen was turned off. Sleep apnea history does not wear CPAP or oxygen at night. 0012: Initial troponin negative. Requesting a muscle relaxer for his muscle spasms for which he is on tizanidine 2 mg as needed. Apparently became hypoxic 83% off oxygen. Pending dimer results however due to hypoxia and postop will obtain CT angiogram of chest to rule out PE. D-dimer did return slightly elevated 0.58. CT scan negative for PE or infiltrates. On review of his medications he is on Xarelto and not on Coumadin. He does continue on oxygen. Nursing did reach out to facility they can continue oxygen there as needed. Symptom-free on reevaluation. Repeat troponin was 16, per algorithm this is negative for ACS. Outpatient follow-up. All questions were answered. Re-evaluation: stable Disposition discussed with patient/family/significant other: Patient Case discussed with consulting clinician: N/A This note was generated with [employer] software. It may contain incorrect words, spelling, and punctuation that were not noted in checking the note before signing. Lab Data Attestation: I reviewed the patient's lab results. Labs: Laboratory Results - last 24 hr 12/19/24 12/20/24 22:39 01:02 WBC 8.4 RBC 5.04 Hgb 13.7 Hct 44.2 MCV 87.7 MCH 27.2 MCHC 31.0 L RDW Std Deviation 44.8 H RDW Coeff of Tee 13.9 Plt Count 177 MPV 9.8 Immature Gran % (Auto) 0.200 Neut % (Auto) 73.0 H Lymph % (Auto) 14.4 L [place] % (Auto) 10.6 H Eos % (Auto) 1.3 Baso % (Auto) 0.5 Absolute Neuts (auto) 6.1 Absolute Lymphs (auto) 1.20 Nucleated RBC % 0 PT 18.1 H INR 1.5 D-Dimer Quant (PE/DVT) 0.58 H* Sodium 133 Potassium 4.1 Chloride 97 L Carbon Dioxide 25.7 Anion Gap 10 BUN 14 Creatinine 1.01 Estim Creat Clear Calc 120.67 Est GFR (MDRD) Non-Af 89 BUN/Creatinine Ratio 13.8 Glucose 180 H Calcium 8.8 Troponin T High Sens 11 Troponin T Hi Sens 2 Hr 16 Radiography Diagnostic Testing: Clinical Impression(s) from Imaging Studies Chest X-Ray 12/19/24 22:40 IMPRESSION: Low lung volumes limits this evaluation. Questionable patchy opacity at the right mid lung zone could be artifactual, with infection, atelectasis, or edema also possible. Reading Location: [id number] Chest CTA 12/20/24 00:40 IMPRESSION: No embolism, dissection, or pneumonia. Reading Location: [facility] Discharge Plan Triage Chief Complaint: Chest Pain ED Provider: Nguyễn Al Dx/Rx/DC Orders Clinical Impression: Chest pain, Hypoxia, KOFFI (obstructive sleep apnea) Instructions: ED Chest Pain, Uncertain Cause Prescriptions: No Action hydrochlorothiazide 50 mg Tablet 50 mg PO DAILY amlodipine 5 mg Tablet 5 mg PO DAILY allopurinol 100 mg Tablet 100 mg PO DAILY omeprazole 40 mg Capsule,Delayed Release(Dr/Ec) 40 mg PO DAILY timolol maleate 0.25 % Drops 1 drp EACH EYE DAILY lisinopril 40 mg Tablet 40 mg PO DAILY metformin 500 mg Tablet Extended Release 24 Hr 500 mg PO QPM brimonidine [Alphagan P] 0.15 % Drops 1 drp EACH EYE QHS furosemide [Lasix] 20 mg tablet 20 mg PO DAILY Qty: 30 0RF metoprolol tartrate 25 mg tablet 25 mg PO BID Qty: 60 0RF Xarelto 20 mg tablet 20 mg PO DAILY Qty: 30 0RF Rx Instructions: must administer with evening meal benzonatate 200 mg capsule 200 mg PO TID PRN (Reason: cough) Qty: 20 0RF tramadol 50 mg tablet 50 mg PO 4X/DAY PRN PRN (Reason: pain) trazodone 100 mg tablet 100 mg PO QHS tizanidine 2 mg tablet 2 mg PO TID spironolactone 25 mg tablet 25 mg PO DAILY Xarelto 10 mg tablet 20 mg PO DAILY albuterol sulfate 2.5 mg /3 mL (0.083 %) solution for nebulization Patient Comments: [NO ORIGINAL SIG] pravastatin 40 mg tablet 40 mg PO DAILY metoprolol succinate 100 mg tablet extended release 24 hr 100 mg PO BID dofetilide 250 mcg capsule 250 mcg PO BID potassium chloride 20 mEq tablet,ER particles/crystals 20 meq PO DAILY hydroxyzine pamoate 25 mg capsule PO duloxetine 20 mg capsule,delayed release(DR/EC) 20 mg PO DAILY Nexletol 180 mg tablet 180 mg PO DAILY Primary Care Provider: Jhonatan Garcia Referrals: Isadora Correa PARTY COORDINATOR, PARTY COORDINATOR-C [Non-Staff] - Activity Restrictions/Additional Instructions: Your cardiac workup negative in the ED. Your CT angiogram chest negative for blood clots or any acute findings., Your oxygen dropped down while in the emergency department. Your facility continue oxygen as needed. You have sleep apnea history. Print Language: Turkish Disposition Disposition: Home, Self Care Discharge Date/Time: 12/20/24 03:58
[2024-12-19 22:29] VITALS: BP 135/79; PULSE 88; RESP 18; TEMP 36.8; O2SAT 94
--- NOTE | 2024-12-19 22:40 | RAD_ITS ---
PROCEDURE: CHEST 1 VIEW (PORTABLE) 12/19/2024 REASON FOR EXAM: CHEST PAIN TECHNIQUE: Frontal view of the chest. COMPARISON: Chest radiographs 02/12/2023 FINDINGS: Hardware: None Heart: Cardiac and mediastinal contours are stable. Lungs: Lung volumes are low. There is questionable patchy opacity at the right mid lung zone. Bones: Degenerative changes are identified within the thoracic spine. RAD/Chest 1 View (Portable) IMPRESSION: Low lung volumes limits this evaluation. Questionable patchy opacity at the ri ght mid lung zone could be artifactual, with infection, atelectasis, or edema also possible. Reading Location: [facility]
[2024-12-19 22:46] LABS: Hematocrit 44.2 % (40-54); Hemoglobin 13.7 g/dL (13.0-16.5); Immature Granulocytes Count 0.020 X10^3/uL (0.0-0.0); Mean Corp Hgb Conc 31.0 g/dL (32-36); Mean Corpuscular Volume 87.7 fL (80-94); Mean Platelet Vol. 9.8 fl (6.2-12.0); NRBC Flagged by Analyzer 0 % (0-5); Platelet Count 177 K/mm3 (150-450); RBC Distribution Width CV 13.9 % (11.6-14.6); RBC Distribution Width SD 44.8 fl (35.1-43.9); Red Blood Count 5.04 M/mm3 (4.6-6.2); White Blood Count 8.4 K/mm3 (4.4-11.0)
[2024-12-19 22:55] LABS: Prothrombin Time (Protime)PT. 18.1 SECONDS (11.7-14.9)
--- NOTE | 2024-12-19 23:08 | ED.RN ---
per pt request, sister phillip notified that pt is at [facility]
[2024-12-19 23:25] LABS: Anion Gap 10 (5-15); BUN 14 mg/dL (4-19); BUN/Creat Ratio 13.8 RATIO (10-20); Calcium,Total 8.8 mg/dL (7.6-11.0); Carbon Dioxide 25.7 mmol/L (21.0-32.0); Chloride 97 mmol/L (98-108); Estimated Creatinine Clearance 120.67 ml/min (50-250); Glucose 180 mg/dL (70-99); Potassium 4.1 mmol/L (3.3-5.1); Troponin T High Sensitivity 11 ng/L (<=22)
[2024-12-19 23:28] VITALS: O2SAT 83
[2024-12-19 23:29] VITALS: BP 132/67; PULSE 72; RESP 20; TEMP 36.8; O2SAT 96
[2024-12-19 23:30] VITALS: O2SAT 94
[2024-12-20] VITALS: BP 135/79; PULSE 72; RESP 18; TEMP 36.8; O2SAT 95
[2024-12-20 00:20] LABS: D-Dimer Quantitative (DVT/PE) 0.58 FEU/ug/m (0.27-0.49)
--- NOTE | 2024-12-20 00:40 | CT_ITS ---
PROCEDURE: CTA CHEST W/WO CONTRAST 12/20/2024 REASON FOR EXAM: HYPOXIA TECHNIQUE: CTA CHEST W/WO CONTRAST Multiplanar Sagittal and Coronal images were obtained. CONTRAST: Isovue 370 VOLUME: 76 mL One or more dose reduction techniques were used (e.g., Automated exposure control, adjustment of the mA and/or kV according to patient size, use of iterative reconstruction technique). RADIATION DOSE SUMMARY: CTDlvol: 80 mGy DLP: 1142 mGycm COMPARISON: Chest x-ray 12/19/2024 FINDINGS: Unremarkable base of neck and axilla. Normal esophagus. Upper limits of normal heart size. Small pericardial effusion. No aortic dissection. No pulmonary embolism. Central airways are patent. There is bronchial wall thickening. Tiny bilateral effusions, under aerated lung bases. No consolidation or pneumothorax. Cirrhotic liver morphology. No acute upper abdominal findings. Gynecomastia. No acute chest wall findings. CT/CTA Chest W/WO Contrast IMPRESSION: No embolism, dissection, or pneumonia. Reading Location: [place] [id number]
[2024-12-20 01:00] VITALS: BP 115/63; PULSE 70; RESP 18; TEMP 36.8; O2SAT 94
[2024-12-20 01:36] LABS: Troponin T High Sens 2 HR 16 ng/L (<=22)
[2024-12-20 02:00] VITALS: BP 109/58; PULSE 62; RESP 17; TEMP 36.8; O2SAT 98
[2024-12-20 02:36] VITALS: BP 109/58; PULSE 66; RESP 16; TEMP 36.8; O2SAT 98
[2024-12-20 03:00] VITALS: BP 126/82; PULSE 61; RESP 17; O2SAT 97
--- NOTE | 2024-12-20 03:09 | ED.RN ---
SWCC called by this RN, updated on pt being discharged back to [facility], no further questions at this time.
== END 2024-12-20 03:58 | disposition home or self-care (01) ==
PROVIDERS: Emergency Provider Emergency Medicine; Visit Provider Emergency Medicine
DX: R07.9 Chest pain, unspecified (principal); J44.9 Chronic obstructive pulmonary disease, unspecified; E11.9 Type 2 diabetes mellitus without complications; Z87.891 Personal history of nicotine dependence; E78.5 Hyperlipidemia, unspecified; R09.02 Hypoxemia; G47.33 Obstructive sleep apnea (adult) (pediatric); Z79.01 Long term (current) use of anticoagulants; I10 Essential (primary) hypertension; R06.09 Other forms of dyspnea
CPT/HCPCS: 71045; 71275; 80048; 84484; 85025; 85379; 85610; 93005; 99285; Q9967; A4216

== ENCOUNTER 2024-12-20 13:05 | Observation (INO) | payer MEDICAID, SELFPAY ==
[2024-12-20] VITALS (8 sets, daily range): BP systolic 137–165; BP diastolic 64–91; PULSE 65–73; RESP 15–18; TEMP 36.8–37.1; O2SAT 93–99; BMI 47.1; BMI 45.5
--- NOTE | 2024-12-20 14:33 | EX.ED.DYSGE1 ---
HPI History of Present Illness Chief Complaint: Allergic Reaction Informant: patient and EMS Narrative Narrative: 54-year-old male presents with right hand pain, swelling, itching that started yesterday when he was here and had a CT of the chest with IV contrast, the contrast infiltrated out of the IV that was in his right hand and cause this. They then put the IV in his left hand and did the IV contrasted study, he has no symptoms in the left arm or hand at all. However in the right today it was more swollen and red and swollen all the way up to his right upper arm, he states that is actually better now, but he has blistering on the dorsum of the right hand and hand is extremely swollen. Denies any tingling or numbness peer denies any fevers or chills. He states it is painful because of the swelling but is also very itchy. [facility] Medical History Ankle fracture, right Insomnia Obstructive sleep apnea Depression Hyperlipemia Cardiomyopathy Muscle weakness (generalized) Anxiety Asthma Type 2 diabetes mellitus COPD (chronic obstructive pulmonary disease) CHF (congestive heart failure) Glaucoma Gout Diabetes Hypertension Home Medications ?Medication ?Instructions ?Recorded ?Last Taken ?Type allopurinol 100 mg tablet 100 mg PO DAILY 10/23/22 Unknown History amlodipine 5 mg tablet 5 mg PO DAILY 10/23/22 Unknown History hydrochlorothiazide 50 mg tablet 50 mg PO DAILY 10/23/22 Unknown History omeprazole 40 mg capsule,delayed 40 mg PO DAILY 10/23/22 Unknown History release rivaroxaban 20 mg tablet (Xarelto) 20 mg PO DAILY #30 tabs 10/23/22 Unknown Rx albuterol sulfate 2.5 mg/3 mL 2.5 mg inhalation Q6H 12/19/24 Unknown History (0.083 %) solution for nebulization bempedoic acid 180 mg tablet 180 mg PO DAILY 12/19/24 Unknown History (Nexletol) dofetilide 250 mcg capsule 250 mcg PO BID 12/19/24 Unknown History duloxetine 20 mg capsule,delayed 20 mg PO DAILY 12/19/24 Unknown History release hydroxyzine pamoate 25 mg capsule 25 mg PO Q6H PRN anxiety 12/19/24 Unknown History metoprolol succinate 100 mg 100 mg PO BID 12/19/24 Unknown History tablet,extended release 24 hr potassium chloride 20 mEq 20 meq PO DAILY 12/19/24 Unknown History tablet,extended release(part/cryst) pravastatin 40 mg tablet 40 mg PO DAILY 12/19/24 Unknown History spironolactone 25 mg tablet 25 mg PO DAILY 12/19/24 Unknown History tizanidine 2 mg tablet 2 mg PO TID 12/19/24 Unknown History tramadol 50 mg tablet 50 mg PO 4X/DAY PRN PRN pain 12/19/24 Unknown History trazodone 100 mg tablet 100 mg PO QHS 12/19/24 Unknown History acetaminophen 325 mg capsule 650 mg PO Q4H PRN fever or pain 12/20/24 Unknown History cetirizine 10 mg tablet 10 mg PO DAILY 12/20/24 Unknown History dulaglutide 1.5 mg/0.5 mL 1.5 mg subcut .WEEKLY 12/20/24 Unknown History subcutaneous pen injector (Trulicity) fluticasone 100 mcg-salmeterol 50 1 inh inhalation BID 12/20/24 Unknown History mcg/dose blistr powdr for inhalation (Advair Diskus) fluticasone 100 mcg-salmeterol 50 2 inh inhalation BID 12/20/24 Unknown History mcg/dose blistr powdr for inhalation (Advair Diskus) Allergy/AdvReac Type Severity Reaction Status Date / Time [id number] Reductase Allergy Mild Hives Verified 12/20/24 13:07 Inhibitor Social History housing: [facility] Smoking Status: Former smoker ROS ROS ED Constitutional Constitutional ED: Denies chills or fever(s) Musculoskeletal Musculoskeletal: Reports extremity pain; Denies neck pain Integumentary Reports rash; Denies Abrasions or wounds Neurologic Neurologic: Denies paresthesias or weakness EXAM Physical Exam Const Vital Signs: 12/20/24 13:05 12/20/24 15:14 Temperature 98.6 F 98.7 F Temperature Source Oral Oral Pulse Rate 72 68 Respiratory Rate 18 15 Blood Pressure 145/88 H 153/84 H Blood Pressure Mean 107 107 Pulse Ox 99 93 Oxygen Delivery Method Room Air Room Air Positive well nourished, well developed and obese General Appearance ED: well developed and NAD Nutritional Appearance: obese Neck full ROM and supple Back/Spine normal ROM and normal to inspection Extremity Extremity Narrative: Right lower extremity is in an external fixator. The right hand is so edematous that he cannot bend his fingers but he can straighten them and there is no severe pain. Brisk cap refill distal fingers all of them on the right. He has some nonruptured bullae on the dorsum of the hand there is multiple, one of them is 3 cm in diameter at the biggest. There is erythema throughout this entire area, it is not superficially tender, but the swollen hand is tender to palpation due to the amount of swelling at least. Erythema progresses to about the wrist and a little proximal but then stops and there is no tenderness in this area or more proximally. All compartments of the forearm and upper arm are soft and nondistended and nontender he has full range of motion of the wrist, elbow, shoulder. The IV site on the dorsum of the left hand is benign, there is no swelling or erythema or bullae or tenderness. Neuro oriented x3, no focal motor deficits and no sensory deficits noted Sensorium / Orientation: alert Psych mental status grossly normal and thought process normal Skin no wounds Skin Narrative: Blanching erythematous rash throughout the right hand and dorsal wrist along with some bullae of the hand, see above MDM MDM MDM Narrative Medical decision making narrative: I obtained labs, and an x-ray of the right hand which my interpretation just shows soft tissue swelling and no subcutaneous tracking air or bony abnormality. I discussed with plastics Dr. Estrada, he came and evaluated patient. He agrees that it is unlikely that he has compartment syndrome of the hand but he advises elevation, and admission. Discussed with hospitalist, having nursing elevate the right upper extremity especially the hand, will put him on medical floor for observation and plastics will follow. Lab Data Attestation: I reviewed the patient's lab results. Labs: Laboratory Results - last 24 hr 12/20/24 15:04 WBC 8.4 RBC 5.31 Hgb 14.3 Hct 46.2 MCV 87.0 MCH 26.9 L MCHC 31.0 L RDW Std Deviation 44.4 H RDW Coeff of Tee 13.9 Plt Count 198 MPV 9.8 Immature Gran % (Auto) 0.400 Neut % (Auto) 76.3 H Lymph % (Auto) 10.6 L [place] % (Auto) 10.6 H Eos % (Auto) 1.6 Baso % (Auto) 0.5 Absolute Neuts (auto) 6.4 Absolute Lymphs (auto) 0.89 Nucleated RBC % 0 Sodium 134 Potassium 4.2 Chloride 98 Carbon Dioxide 26.7 Anion Gap 10 BUN 12 Creatinine 0.94 Estim Creat Clear Calc 128.93 Est GFR (MDRD) Non-Af 97 BUN/Creatinine Ratio 12.3 Glucose 121 H Calcium 9.2 Radiography Diagnostic Testing: Clinical Impression(s) from Imaging Studies Hand X-Ray 12/20/24 14:52 IMPRESSION: Severe soft tissue swelling. No significant bony abnormality Reading Location: [id number] Management Discussion w/another healthcare provider: Hospitalist and Professional Development Instructor Discharge Plan Dx/Rx/DC Orders Clinical Impression: Swelling of right hand, Extravasation of intravenous contrast medium Disposition Disposition: Acute Care [facility]
--- NOTE | 2024-12-20 14:39 | EX.PCM.CON.S ---
Assessment & Plan Assessment/Plan (1) IV infiltrate: (2) Localized swelling on right hand: PLAN: Plan Patient has significant swelling in the right hand secondary to dorsal hand IV infiltrate yesterday. I am recommending that we admit the patient to monitor. Patient needs strict elevation with the hand above the heart overnight (blue arm elevator ordered). Plastics will continue to follow. He may develop a dorsal hand wound, which plastic surgery will follow along for as needed. HPI Consult Data Date of Consult: 12/20/24 HPI Narrative HPI Narrative: SOCORRO KELLEY is a 54 M who presents for right dorsal hand swelling and pain after IV infiltrate yesterday while getting contrast solution injected for CT scan. Patient has been in a fdc recently secondary to immobility because of a right lower extremity external fixator. He presented to the emergency department yesterday for chest pain and was getting a CT scan to rule out a DVT PE. He was discharged home to the fdc last night and return today for the pain and swelling. He reports sharp severe pain in the dorsum of his right hand worsened by movements and improved with rest and elevation. The emergency department is concerned because there is some blistering on the dorsum of the hand and he has decreased range of motion. He denies having any numbness or tingling in the right upper extremity/hand/fingers. Patient has a history of atrial fibrillation and is on Coumadin. [facility] Medical History Ankle fracture, right Insomnia Obstructive sleep apnea Depression Hyperlipemia Cardiomyopathy Muscle weakness (generalized) Anxiety Asthma Type 2 diabetes mellitus COPD (chronic obstructive pulmonary disease) CHF (congestive heart failure) Glaucoma Gout Diabetes Hypertension Home Medications ?Medication ?Instructions ?Recorded ?Last Taken ?Type allopurinol 100 mg tablet 100 mg PO DAILY 10/23/22 Unknown History amlodipine 5 mg tablet 5 mg PO DAILY 10/23/22 Unknown History brimonidine 0.15 % eye drops 1 drp EACH EYE QHS 10/23/22 Unknown History (Alphagan P) furosemide 20 mg tablet (Lasix) 20 mg PO DAILY #30 tabs 10/23/22 Unknown Rx hydrochlorothiazide 50 mg tablet 50 mg PO DAILY 10/23/22 Unknown History lisinopril 40 mg tablet 40 mg PO DAILY 10/23/22 Unknown History metformin 500 mg tablet,extended 500 mg PO QPM 10/23/22 Unknown History release 24 hr metoprolol tartrate 25 mg tablet 25 mg PO BID #60 tabs 10/23/22 Unknown Rx omeprazole 40 mg capsule,delayed 40 mg PO DAILY 10/23/22 Unknown History release rivaroxaban 20 mg tablet (Xarelto) 20 mg PO DAILY #30 tabs 10/23/22 Unknown Rx timolol maleate 0.25 % eye drops 1 drp EACH EYE DAILY 10/23/22 Unknown History benzonatate 200 mg capsule 200 mg PO TID PRN cough #20 caps 02/12/23 Unknown Rx albuterol sulfate 2.5 mg/3 mL mg 12/19/24 Unknown History (0.083 %) solution for nebulization bempedoic acid 180 mg tablet 180 mg PO DAILY 12/19/24 Unknown History (Nexletol) dofetilide 250 mcg capsule 250 mcg PO BID 12/19/24 Unknown History duloxetine 20 mg capsule,delayed 20 mg PO DAILY 12/19/24 Unknown History release hydroxyzine pamoate 25 mg capsule PO 12/19/24 Unknown History metoprolol succinate 100 mg 100 mg PO BID 12/19/24 Unknown History tablet,extended release 24 hr potassium chloride 20 mEq 20 meq PO DAILY 12/19/24 Unknown History tablet,extended release(part/cryst) pravastatin 40 mg tablet 40 mg PO DAILY 12/19/24 Unknown History rivaroxaban 10 mg tablet (Xarelto) 20 mg PO DAILY 12/19/24 Unknown History spironolactone 25 mg tablet 25 mg PO DAILY 12/19/24 Unknown History tizanidine 2 mg tablet 2 mg PO TID 12/19/24 Unknown History tramadol 50 mg tablet 50 mg PO 4X/DAY PRN PRN pain 12/19/24 Unknown History trazodone 100 mg tablet 100 mg PO QHS 12/19/24 Unknown History Allergy/AdvReac Type Severity Reaction Status Date / Time Lpusieg-VIW-VzW Reductase Allergy Mild Hives Verified 12/20/24 13:07 Inhibitor Social History housing: fdc Smoking Status: Former smoker Physical Exam Narrative Right upper Extremity Inspection: Dorsal hand swelling with superficial blistering. No streaking erythema. Palpation: No crepitus. Compartments of the forearm and the hand are all soft. Some tenderness to palpation of the dorsum of the hand. No tenderness to palpation with extension of the fingers. Motor: Able to bend and extend all MP, PIP, and DIP joints. He is unable to make a complete fist secondary to the swelling. Patient is able to give me a peace sign, thumbs up, and okay sign. Sensory: Intact to light touch on the radial and ulnar borders. Vascular: Finger tips are warm and well perfused with <2 second capillary refill. Lab / Micro Data 12/20/24 15:04 12/20/24 15:04 Imaging X-ray demonstrated soft tissue swelling no bony abnormalities Dorsal hand contrast noted Charges/Coding Visit Charges Office Visits / Consults: 17144 OV L3 New 30min
--- NOTE | 2024-12-20 14:52 | RAD_ITS ---
PROCEDURE: HAND MIN 3 VIEWS 12/20/2024 REASON FOR EXAM: PAIN/SWELLING TECHNIQUE: HAND MIN 3 VIEWS COMPARISON: None FINDINGS: Bones: No fracture. Joints: Mild joint space narrowing, marginal spurring distal interphalangeal joint 2nd and 5th digit. Soft tissues: Marked swelling of the hand particularly the dorsal aspect of the hand. Likely blistering. Other: No foreign body RAD/Hand Min 3 Views IMPRESSION: Severe soft tissue swelling. No significant bony abnormality Reading Location: [id number]
[2024-12-20 15:30] LABS: Hematocrit 46.2 % (40-54); Hemoglobin 14.3 g/dL (13.0-16.5); Immature Granulocytes Count 0.030 X10^3/uL (0.0-0.0); Mean Corp Hgb Conc 31.0 g/dL (32-36); Mean Corpuscular Volume 87.0 fL (80-94); Mean Platelet Vol. 9.8 fl (6.2-12.0); NRBC Flagged by Analyzer 0 % (0-5); Platelet Count 198 K/mm3 (150-450); RBC Distribution Width CV 13.9 % (11.6-14.6); RBC Distribution Width SD 44.4 fl (35.1-43.9); Red Blood Count 5.31 M/mm3 (4.6-6.2); White Blood Count 8.4 K/mm3 (4.4-11.0)
--- NOTE | 2024-12-20 15:34 | PCA ---
PT NURSE SUKHWINDER CALLED FOR PT UPDATE. NURSE CURRENTLY BUSY IN ANOTHER ROOM. CALL BACK NUMBER FOR [facility] NURSE IS [phone].
[2024-12-20 15:59] LABS: Anion Gap 10 (5-15); BUN 12 mg/dL (4-19); BUN/Creat Ratio 12.3 RATIO (10-20); Calcium,Total 9.2 mg/dL (7.6-11.0); Carbon Dioxide 26.7 mmol/L (21.0-32.0); Chloride 98 mmol/L (98-108); Estimated Creatinine Clearance 128.93 ml/min (50-250); Glucose 121 mg/dL (70-99); Potassium 4.2 mmol/L (3.3-5.1)
--- NOTE | 2024-12-20 16:13 | ED.RN ---
Spoke with Denise from [facility], informed that patient is to be admitted and observed overnight.
--- NOTE | 2024-12-20 17:40 | CASEMGMT ---
Social Work SW confirmed with patient that he plans to return to [facility] when medically ready. No further needs identified at this time. Cherise Pichardo, SAND ANALYST, ROLLER ENGRAVER
--- NOTE | 2024-12-20 17:52 | HP.PCM.HOS_ITS ---
HPI - General General Date of Admission: 12/20/24 Date of Service: 12/20/24 Chief Complaint: Right hand pain and swelling HPI Narrative RAY WARREN, is [id number] male history of hypertension, gout, cardiomyopathy, GERD, diabetes, depression and anxiety, KOFFI who presented [facility] ED 12/20/2024 for right hand pain, swelling, itching that started yesterday when he was in the ED for a CT scan of the chest with IV contrast. The contrast infiltrated out of the IV so he had an IV placed in his left hand and then got the IV contrasted study. No symptoms in left hand at all. Re- presented today due to increased swelling and redness all the way up right upper arm. In the ED temp 98.6, heart rate 72 and blood pressure 145/88, respiratory 18 pulse ox 99% on room air. CBC and BMP fairly benign, hand x-ray with severe soft tissue swelling. Plastic surgery was contacted in the ED and evaluated, recommended admission for observation with aggressive elevation. Hospitalist contacted for admission. Patient evaluated at bedside. Patient reports history as above with the swelling developing since yesterday, patient has difficulty moving hand due to the swelling more so than the pain. Denies fever, reports his right foot/ankle gets little bit irritated due to the fixator that is due to come off January 01 but no other new or acute complaints [facility] Medical History Ankle fracture, right Insomnia Obstructive sleep apnea Depression Hyperlipemia Cardiomyopathy Muscle weakness (generalized) Anxiety Asthma Type 2 diabetes mellitus COPD (chronic obstructive pulmonary disease) CHF (congestive heart failure) Glaucoma Gout Diabetes Hypertension Home Medications ?Medication ?Instructions ?Recorded ?Last Taken ?Type allopurinol 100 mg tablet 100 mg PO DAILY 10/23/22 Unk nown History amlodipine 5 mg tablet 5 mg PO DAILY 10/23/22 Unkno wn History hydrochlorothiazide 50 mg tablet 50 mg PO DAILY Unknown History omeprazole 40 mg capsule,delayed 40 mg PO DAILY Unknown History release rivaroxaban 20 mg tablet (Xarelto) 20 mg PO DAILY #30 tabs 10/23/22 Unknown Rx albuterol sulfate 2.5 mg/3 mL 2.5 mg inhalation Q6H Unknown History (0.083 %) solution for nebulization bempedoic acid 180 mg tablet 180 mg PO DAILY 12/19/24 Unknown History (Nexletol) dofetilide 250 mcg capsule 250 mcg PO BID 12/19/24 Unk nown History duloxetine 20 mg capsule,delayed 20 mg PO DAILY Unknown History release hydroxyzine pamoate 25 mg capsule 25 mg PO Q6H PRN anx iety 12/19/24 Unknown History metoprolol succinate 100 mg 100 mg PO BID 12/19/24 Unk nown History tablet,extended release 24 hr potassium chloride 20 mEq 20 meq PO DAILY 12/19/24 Unk nown History tablet,extended release(part/cryst) pravastatin 40 mg tablet 40 mg PO DAILY 12/19/24 Unkn own History spironolactone 25 mg tablet 25 mg PO DAILY 12/19/24 Un known History tizanidine 2 mg tablet 2 mg PO TID 12/19/24 Unknown History tramadol 50 mg tablet 50 mg PO 4X/DAY PRN PRN pain 12/19/24 Unknown History trazodone 100 mg tablet 100 mg PO QHS 12/19/24 Unkno wn History acetaminophen 325 mg capsule 650 mg PO Q4H PRN fever o r pain 12/20/24 Unknown History cetirizine 10 mg tablet 10 mg PO DAILY 12/20/24 Unkn own History dulaglutide 1.5 mg/0.5 mL 1.5 mg subcut .WEEKLY Unknown History subcutaneous pen injector (Trulicity) fluticasone 100 mcg-salmeterol 50 1 inh inhalation BID 12/20/24 Unknown History mcg/dose blistr powdr for inhalation (Advair Diskus) fluticasone 100 mcg-salmeterol 50 2 inh inhalation BID 12/20/24 Unknown History mcg/dose blistr powdr for inhalation (Advair Diskus) Allergy/AdvReac Type Severity Reaction Status Date / Time Aackrqc-IMH-CwK Reductase Allergy Mild Hives Verified 12/20/24 13:07 Inhibitor Social History housing: retirement Smoking Status: Former smoker ROS ROS Narrative General: Denies fever/chills HENT: Denies headache, denies stuffy nose, denies sore throat EYES: Denies changes in vision Resp: Denies cough, denies shortness of breath Cardiac: Denies chest pain GI: Denies abdominal pain, denies changes in bowel, denies nausea/vomiting : Denies changes in urination Extremity: Right upper extremity swelling primarily in hand and wrist MSK: Denies weakness Neuro: Denies any numbness/tingling Heme: Denies any bleeding or bruising Skin: Erythema of right hand and wrist with bullae on the dorsum Psychiatric: No complaints voiced Vital Signs Vital Signs Vital Signs: 12/20/24 13:05 12/20/24 15:14 12/20/24 17:00 Temperature 98.6 F 98.7 F Temperature Source Oral Oral Pulse Rate 72 68 65 Respiratory Rate 18 15 16 Blood Pressure 145/88 H 153/84 H 165/91 H Blood Pressure Mean 107 107 115 Pulse Ox 99 93 95 Oxygen Delivery Method Room Air Room Air Room Air Weight
--- NOTE | 2024-12-20 17:52 | PCM.HP.STD ---
HPI - General General Date of Admission: 12/20/24 Date of Service: 12/20/24 Chief Complaint: Right hand pain and swelling HPI Narrative RAY WARREN, is [id number] male history of hypertension, gout, cardiomyopathy, GERD, diabetes, depression and anxiety, KOFFI who presented [facility] ED 12/20/2024 for right hand pain, swelling, itching that started yesterday when he was in the ED for a CT scan of the chest with IV contrast. The contrast infiltrated out of the IV so he had an IV placed in his left hand and then got the IV contrasted study. No symptoms in left hand at all. Re-presented today due to increased swelling and redness all the way up right upper arm. In the ED temp 98.6, heart rate 72 and blood pressure 145/88, respiratory 18 pulse ox 99% on room air. CBC and BMP fairly benign, hand x-ray with severe soft tissue swelling. Plastic surgery was contacted in the ED and evaluated, recommended admission for observation with aggressive elevation. Hospitalist contacted for admission. Patient evaluated at bedside. Patient reports history as above with the swelling developing since yesterday, patient has difficulty moving hand due to the swelling more so than the pain. Denies fever, reports his right foot/ankle gets little bit irritated due to the fixator that is due to come off January 01 but no other new or acute complaints [facility] Medical History Ankle fracture, right Insomnia Obstructive sleep apnea Depression Hyperlipemia Cardiomyopathy Muscle weakness (generalized) Anxiety Asthma Type 2 diabetes mellitus COPD (chronic obstructive pulmonary disease) CHF (congestive heart failure) Glaucoma Gout Diabetes Hypertension Home Medications ?Medication ?Instructions ?Recorded ?Last Taken ?Type allopurinol 100 mg tablet 100 mg PO DAILY 10/23/22 Unknown History amlodipine 5 mg tablet 5 mg PO DAILY 10/23/22 Unknown History hydrochlorothiazide 50 mg tablet 50 mg PO DAILY 10/23/22 Unknown History omeprazole 40 mg capsule,delayed 40 mg PO DAILY 10/23/22 Unknown History release rivaroxaban 20 mg tablet (Xarelto) 20 mg PO DAILY #30 tabs 10/23/22 Unknown Rx albuterol sulfate 2.5 mg/3 mL 2.5 mg inhalation Q6H 12/19/24 Unknown History (0.083 %) solution for nebulization bempedoic acid 180 mg tablet 180 mg PO DAILY 12/19/24 Unknown History (Nexletol) dofetilide 250 mcg capsule 250 mcg PO BID 12/19/24 Unknown History duloxetine 20 mg capsule,delayed 20 mg PO DAILY 12/19/24 Unknown History release hydroxyzine pamoate 25 mg capsule 25 mg PO Q6H PRN anxiety 12/19/24 Unknown History metoprolol succinate 100 mg 100 mg PO BID 12/19/24 Unknown History tablet,extended release 24 hr potassium chloride 20 mEq 20 meq PO DAILY 12/19/24 Unknown History tablet,extended release(part/cryst) pravastatin 40 mg tablet 40 mg PO DAILY 12/19/24 Unknown History spironolactone 25 mg tablet 25 mg PO DAILY 12/19/24 Unknown History tizanidine 2 mg tablet 2 mg PO TID 12/19/24 Unknown History tramadol 50 mg tablet 50 mg PO 4X/DAY PRN PRN pain 12/19/24 Unknown History trazodone 100 mg tablet 100 mg PO QHS 12/19/24 Unknown History acetaminophen 325 mg capsule 650 mg PO Q4H PRN fever or pain 12/20/24 Unknown History cetirizine 10 mg tablet 10 mg PO DAILY 12/20/24 Unknown History dulaglutide 1.5 mg/0.5 mL 1.5 mg subcut .WEEKLY 12/20/24 Unknown History subcutaneous pen injector (Trulicity) fluticasone 100 mcg-salmeterol 50 1 inh inhalation BID 12/20/24 Unknown History mcg/dose blistr powdr for inhalation (Advair Diskus) fluticasone 100 mcg-salmeterol 50 2 inh inhalation BID 12/20/24 Unknown History mcg/dose blistr powdr for inhalation (Advair Diskus) Allergy/AdvReac Type Severity Reaction Status Date / Time Gycivhk-XDI-AzZ Reductase Allergy Mild Hives Verified 12/20/24 13:07 Inhibitor Social History housing: detention Smoking Status: Former smoker ROS ROS Narrative General: Denies fever/chills HENT: Denies headache, denies stuffy nose, denies sore throat EYES: Denies changes in vision Resp: Denies cough, denies shortness of breath Cardiac: Denies chest pain GI: Denies abdominal pain, denies changes in bowel, denies nausea/vomiting : Denies changes in urination Extremity: Right upper extremity swelling primarily in hand and wrist MSK: Denies weakness Neuro: Denies any numbness/tingling Heme: Denies any bleeding or bruising Skin: Erythema of right hand and wrist with bullae on the dorsum Psychiatric: No complaints voiced Vital Signs Vital Signs Vital Signs: 12/20/24 13:05 12/20/24 15:14 12/20/24 17:00 Temperature 98.6 F 98.7 F Temperature Source Oral Oral Pulse Rate 72 68 65 Respiratory Rate 18 15 16 Blood Pressure 145/88 H 153/84 H 165/91 H Blood Pressure Mean 107 107 115 Pulse Ox 99 93 95 Oxygen Delivery Method Room Air Room Air Room Air Weight Weight: 144.7 kg Body Mass Index (BMI) 47.1 Physical Exam Narrative General: Alert, oriented, no apparent distress HEENT: Atraumatic, normocephalic Eyes: Anicteric, normal conjunctiva, extraocular movements grossly intact Neck: Supple Respiratory: Clear to auscultation bilaterally, normal respiratory effort Cardiovascular: Regular rate and rhythm GI: Soft, nontender, nondistended Extremities: Swelling in hand and wrist Musculoskeletal: Left lower extremity in a boot, right lower extremity in fixator Neuro: No overt focal neurological deficits Skin: Erythema of right hand with swelling and bullae on back of hand Psych: Cooperative Results Lab / Micro Data 12/20/24 15:04 12/20/24 15:04 Labs: Laboratory Results - last 24 hr 12/20/24 15:04: WBC 8.4, RBC 5.31, Hgb 14.3, Hct 46.2, MCV 87.0, MCH 26.9 L, MCHC 31.0 L, RDW Std Deviation 44.4 H, RDW Coeff of Tee 13.9, Plt Count 198, MPV 9.8, Immature Gran % (Auto) 0.400, Neut % (Auto) 76.3 H, Lymph % (Auto) 10.6 L, Craig % (Auto) 10.6 H, Eos % (Auto) 1.6, Baso % (Auto) 0.5, Absolute Neuts (auto) 6.4, Absolute Lymphs (auto) 0.89, Nucleated RBC % 0, Sodium 134, Potassium 4.2, Chloride 98, Carbon Dioxide 26.7, Anion Gap 10, BUN 12, Creatinine 0.94, Estim Creat Clear Calc 128.93, Est GFR (MDRD) Non-Af 97, BUN/Creatinine Ratio 12.3, Glucose 121 H, Calcium 9.2 Imaging Radiology Impression Hand X-Ray 12/20/24 14:52 IMPRESSION: Severe soft tissue swelling. No significant bony abnormality Reading Location: [id number] Assessment & Plan Assessment/Plan (1) Localized swelling on right hand: PLAN: Plan # Right hand swelling - Status post contrast extravasation - Elevate hand - Plastic surgery consult - Supportive care # Recent ankle fracture - Patient in SNF due to this currently - Supportive care # History of heart failure - Daily weights, I's and O's - Vitally stable, does not appear to be in exacerbation #Gout -Continue home allopurinol #GERD -Continue PPI #Hypertension - Continue medications #Depression/anxiety -Continue home medications #Paroxysmal Atrial Fibrillation -Rate control: Dofetilide, metoprolol -Anticoagulation: Xarelto #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
--- NOTE | 2024-12-20 19:50 | ED.RN ---
Pt c/o new pain surrounding internal fixation pin on inside of his ankle. Pt is able to move pin. He states this is new. Dr. Botello aware.
--- OUTSIDE RECORDS SUMMARY | 2024-12-20 20:18 | XMS RPT_ITS | CCD ---
Author Organization [facility] Care Team Providers Care Deputy Chief Sheriff Name Role Phone Sarah Cohnn Referring Unavailable Cohn, Zacarias Primary Care Unavailable STRESS TESTS, INV CARD Attending Unavailab Gem Gunter Attending Unavailable COHN, ZACARIAS Referring Unavailable COHN, ZACARIAS Primary Care Unavailable STRESS TESTS, INV CARD Attending Unavailab le COHN, ZACARIAS Referring Unavailable COHN, ZACARIAS Primary Care Unavailable COHN, ZACARIAS Primary Care Unavailable Gem Barr Attending Unavailable COHN, ZACARIAS Referring Unavailable Melissa Ayala Attending Unavailable PHYSICIAN, NONE Primary Care Physician Unavailab le SARAH COHNN Attending Unavailable COHN, ZACARIAS Primary Care Unavailable COHN, ZACARIAS Primary Care Unavailable KIM MEJIA Attending Unavailable COHN, ZACARIAS Attending Unavailable SELF, REFERRAL Referring Unavailable COHN, ZACARIAS Primary Care Unavailable GIRMA HYLTON Primary Care Physician Kristin RN, Roxane Fine Unavailable Unavailable ELIEZER SURESH Attending Unavailable GIRMA CORREA Primary Care Unavailable JAD WATTS Attending GIRMA Strong Primary Care Unavailable HELENA GAINES MD Consulting Unavailable CINDY HERNANDEZ MD Attending Unavailable CINDY HERNANDEZ MD Admitting Unavailable CINDY HERNANDEZ MD Consulting Unavailable JAD WATTS Attending JAD Ryan Admitting GIRMA Strong Primary Care Unavailable JAD WATTS Attending JAD Ryan Admitting GIRMA Strong Primary Care Unavailable GIRMA CORREA Attending Unavailable GIRMA CORREA Primary Care Unavailable GIRMA CORREA Attending Unavailable GIRMA CORREA Primary Care Unavailable DEMI HUSTON MD Attending [facility] DEMI HUSTON MD Attending [facility] Unavailable SAMY JONES Attending Un[facility] Unavailable CINDY HERNANDEZ MD Consulting Unavailable EDWARDO PETTIT, DR LEVIN Attending Unavailabl e [facility] Unavailable ANY DO, SLOANE D Attending Unavailable [facility] Unavailable ANY DO SLOANE D Attending Unavailable [facility] Admitting Unavailable [facility] Attending Unavailable [facility] Care [facility] Unavailable KAVYA MERCURY CRACKING TESTER-PARER, JONNY Attending U JAKE Ring Attending Unavailable JAKE MAXWELL Primary Care Unavailable JAKE MAXWELL Admitting Unavailable [facility] Unavailable Gudla OLS, Dolly Referring Unavailable Gudla OLS, Dolly Attending Unavailable [facility] Unavailable Gudla OLS, Dolly Attending Unavailable Gudla OLS, Dolly Attending Unavailable [facility] Unavailable Gudla OLS, Dolly Referring Unavailable Gudla OLS, Dolly Attending Unavailable [facility] Unavailable [facility] Unavailable Gudla OLS, Dolly Attending Unavailable MANSOOR PETTIT, DR SONNY Woods Admitting Unavailable [facility] Unavail able KORPI DO, NANI Consulting Unavailable MAXIME COLLINS DO Attending Unavailable TE CASEY MD Consulting Unavailable NATHANIEL PETTIT FACP, DELORES Ashton Consulting Unavail able LUIS PETTIT, DR GUAJARDO Consulting Unavailab herberth MARTIN MD, DR MAYRA ROBINS Consulting Unavaila jacob INGRAM MD, BRENNON Attending Unavailable CINDY HERNANDEZ MD Admitting Unavailable [facility] Unavail able HELENA GAINES MD Consulting Unavailable ALIZE PETTIT, DR UPTON Consulting Unavailable CINDY HERNANDEZ MD Consulting Unavailable [facility] Unavail able FELICE STONE, NANI Admitting Unavailable FELICE STONE NANI Attending Unavailable LUPE STONE, DR ORTIZ Consulting Unavailable CHANTAL WHEATLEY DO Consulting Unavailable MELISSA MARIN MD Consulting Unavailable HOSPITALIST, LARRY Consulting Unavailable DICKSON PETTIT, JANAE Consulting Unavailable NADIR PETTIT, DR JONES Admitting Unavailab le LORSON MERCURY CRACKING TESTER-PARER, [facility] Care Unavail able STEFANIE PETTIT, MOY Attending U ARIEL Corona MD Consulting Unavailable LORSON MERCURY CRACKING TESTER-PARER, [facility] Unavail able DELORES MURO DO Attending Unavailable MANSOOR PETTIT, DR SONNY Woods Consulting Unavailable FROMMELT , CIRILO Attending Unavailable LORSON MERCURY CRACKING TESTER-PARER, ELK Primary Care Unavail able JEREMIE MCCORMACK MD Attending Unavailable LORSON MERCURY CRACKING TESTER-PARER, ELK Primary Care Unavail able HEATH PETTIT, DR WILNER Urbina Attending Unavailabl e LORSON MERCURY CRACKING TESTER-PARER, [facility] Care Unavail able LORSON MERCURY CRACKING TESTER-PARER, [facility] Care Unavail able FROMMELT , CIRILO Attending Unavailable ROBERT PETTIT, DR SAMY Cameron Attending Leo HERNANDEZ MD, CINDY Aden Consulting Unavailable LORSON MERCURY CRACKING TESTER-PARER, [facility] Care Unavail able DELORES MURO DO Admitting Unavailable LUPE STONE, DR ORTIZ Attending Unavailable LORSON MERCURY CRACKING TESTER-PARER, [facility] Care Unavail able LORSON MERCURY CRACKING TESTER-PARER, [facility] Care Unavail able LORSON MERCURY CRACKING TESTER-PARER, ELK Attending Unavail able LORSON MERCURY CRACKING TESTER-PARER, [facility] Care Unavail able YANES MERCURY CRACKING TESTER-PARER, HELEN Attending Unava ilable LORSON MERCURY CRACKING TESTER-PARER, [facility] Care Unavail able LORSON MERCURY CRACKING TESTER-PARER, ELK Attending Unavail able LORSON MERCURY CRACKING TESTER-PARER, [facility] Care Unavail able LORSON MERCURY CRACKING TESTER-PARER, GIRMA Attending Unavail able LORSON MERCURY CRACKING TESTER-PARER, [facility] Care Unavail able LORSON MERCURY CRACKING TESTER-PARER, ELK Attending Unavail able LORSON MERCURY CRACKING TESTER-PARER, [facility] Care Unavail able LORSON MERCURY CRACKING TESTER-PARER, ELK Attending Unavail able LORSON MERCURY CRACKING TESTER-PARER, [facility] Care Unavail able LORSON MERCURY CRACKING TESTER-PARER, ELK Attending Unavail able Lorson CLERICAL MANAGER-C, [place] Primary Care Provider Jamila PETTIT, Dr. Alberto Attending Provider Unavailcuhck Marino MD, Dr. Alberto Referring Provider Unavailchuck Tavera, Dr. Adrian Emergency Provider Dr. Jhonatan Garcia DO Primary Care Provider Allergies Allergy Classification Reported Allergen(s) Allergy Type Date of Onset Reaction(s) Facility (8 sources) HMG-CoA reductase inhibitor; 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: [statins] Propensity to adverse reactions to drug myalgia [facility] (1 source) Xbldrvn-Khe-Gdt Reductase Inhibitor Allergy to substance [facility] Medications Current Medications Medication Drug Class(es) Dates Sig (Normalized) Sig (Original) acetaminophen 1000 mg oral tablet (12 sources) Start: 11-07-2023 take 1 dose by [...] every six hours as needed for pain [place] 325- 5 mg oral tablet Dose = 1 tab(s), Oral, q6h, PRN As needed for severe pain, X 3 day(s), # 12 tab(s), 0 Refill(s), Contusion of rib on right side, 144.4 Start Date: 05/05/23 Stop Date: 05/08/23 Status: Ordered Start: 07-15-2022 End: 07-17-2022 take 1 tablet by mouth every six hours as needed for pain [place] 325- 5 mg oral tablet Dose = [...] day(s), # 28 tab(s), 0 Refill(s), Pharmacy: [facility]/pharmacy #[id number], Post-op pain, 177.8, cm, 10/17/24 1:29:00 EDT, Height, 142, kg, 10/17/24 1:29:00 EDT, Dosing Weight Start Date: 10/17/24 Stop Date: 10/24/24 Status: Ordered Quantity: 28.0 Unit: tab(s) Repeat number: 1 Indications: Other acute postprocedural pain; albuterol 0.83 mg/ml inhalation solution (8 sources) beta2-Adrenerg ic Agonist Start: 12-19-2024 Albuterol Sulfate 2. 5 mg /3 mL (0.083 %) solution for nebulization Active mg December 19, 2024 12:00am Start: 08-27-2024 take 1 dose by inhal ation every six hours albuterol 2.5 mg/3 mL (0.083%) inhalation solution Dose : 2.5 mg = 3 mL, Inhalation, q6h, # 120 EA, 0 Refill(s), [id number], 176, cm, 08/27/24 14:57:00 EDT, Height, kg, 08/27/24 14:57:00 EDT, Dosing Weight Start Date: 08/27/24 Status: Ordered Quantity: 120.0 Unit: EA Repeat number: 1 allopurinol 100 mg oral tablet (20 sources) Xanthine Oxidase Inhibitor Start: 12-12-2023 allopurinol 100 mg oral tablet Dose : 100 mg = 1 tab(s), Oral, qDay, # 90 tab(s), 3 Refill(s), [facility]acy: [facility], 177.8, cm, 11/28/23 13:54:00 EDT, Height, kg, 11/28/23 13:54:00 EDT, Dosing Weight Start Date: 12/12/23 Status: Ordered Quantity: 90.0 Unit: tab(s) Repeat number: 4 Start: 10-23-2022 End: 02-06-2023 allopurinol 100 mg oral tabl et Dose : 100 mg = 1 tab(s), Oral, qDay, # 90 tab(s), 3 Refill(s), [facility]: [facility] #[id number], 178.5, cm, 08/08/23 13:32:00 EDT, Height, kg, 08/08/23 13:32:00 EDT, Dosing Weight Start Date: 08/08/23 Status: Ordered Start: 07-11-2022 take 1 dose by mouth once najum y allopurinol Dose : 500 mg =, Oral, qDay Start Date: 07/11/22 Status: Ordered amLODIPine 5 mg oral tablet (6 sources) Dihydropyridine Calcium Channel Kp Start: 10-23-2022 take 1 tablet by mouth once daily Amlodipine 5 mg Tablet Active 5 mg PO DAILY October 23, 2022 12:00am atorvastatin 40 mg oral tablet (3 sources) HMG-CoA Reductase Inhibitor Start: 08-09-2023 atorvastatin 40 mg oral tablet Dose : 40 mg = 1 tab(s), Oral, Daily, # 100 tab(s), 3 Refill(s), [facility]acy: [facility] #[id number], 178.5, cm, 08/08/23 13:32:00 EDT, Height, kg, 08/08/23 13:32:00 EDT, Dosing Weight Start Date: 08/09/23 Status: Ordered bempedoic acid 180 mg oral tablet (9 sources) Start: 12-19-2024 take 1 tablet by mouth once daily Bempedoic Acid (Bempedoic Acid 180 Mg Tablet) 180 mg tablet Active 180 mg PO DAILY December 19, 2024 12:00am Start: 05-14-2024 Nexletol 180 m g oral tablet Dose : 180 mg = 1 tab(s), Oral, qDay, # 30 tab(s), 5 Refill(s), [facility]acy: [facility], 175, cm, 05/14/24 13:59:00 EST, Height, kg, 05/14/24 13:57:00 EST, Dosing Weight Start Date: 05/14/24 Status: Ordered Quantity: 30.0 Unit: tab(s) Repeat number: 6 benzonatate 100 mg oral capsule (3 sources) Non-narcotic Antitussive Start: 06-13-2023 End: 06-20-2023 Tessalon Perles 100 mg oral capsule Dose : 100 mg = 1 cap(s), Oral, TID, X 7 day(s), # 21 cap(s), 0 Refill(s), 06/20/23 1:02:00 AM EST Start Date: 06/13/23 Stop Date: 06/20/23 Status: Ordered Start: 02-12-2023 take 1 capsule by mo uth three times daily as needed for cough Benzonatate 200 mg capsule Active 200 mg PO THREE TIMES A DAY as needed for cough February 12, 2023 12:00am Blood Glucose Test Machine (6 sources) Start: 12-12-2023 Blood Glucose Test Machine See Instructions, Use glucometer daily as directed for blood sugar checks. Dispense insurance preferred device, # 1 EA, 0 Refill(s), Pharmacy: [facility], 177.8, cm, 11/28/23 13:54:00 EDT, Height, 151.4, kg, 11/28/23 13:54:00 EDT, Dosing Weight Start Date: 12/12/23 Status: Ordered Quantity: 1.0 Unit: EA Repeat number: 1 Start: 12-12-2023 Blood Glucose Test Machine See Instructions, Use glucometer daily as directed for blood sugar checks. Dispense insurance preferred device, # 1 EA, 0 Refill(s), Pharmacy: [facility], 177.8, cm, 11/28/23 13:54:00 EDT, Height, 151.4, kg, 11/28/23 13:54:00 EDT, Dosing Weight Start Date: 12/12/23 Status: Ordered cephalexin 500 mg oral tablet (2 sources) Cephalosporin Antibacterial Start: 11-28-2024 End: 12-12-2024 cephalexin 500 mg oral tablet Dose : 500 mg = 1 tab(s), Oral, QID, X 14 day(s), # 56 tab(s), 0 Refill(s), 12/12/24 1:19:00 PM EDT, Pharmacy: [facility]/pharmacy #[id number], 177.8, cm, 11/24/24 11:36:00 EDT, Height, 132.4, kg, 11/28/24 5:38:00 EDT, Dosing Weight Start Date: 11/28/24 Stop Date: 12/12/24 Status: Ordered Quantity: 56.0 Unit: tab(s) Repeat number: 1 clindamycin 150 mg oral capsule (1 source) Lincosamide Antibacterial Start: 07-15-2022 End: 07-22-2022 clindamycin 150 mg oral capsule Dose : 300 mg = 2 cap(s), Oral, q6h, X 7 day(s), # 56 cap(s), 0 Refill(s), 07/22/22 21:17:00 EST, Acute periapical abscess Odontalgia, 148.6 Start Date: 07/15/22 Stop Date: 07/22/22 Status: Ordered dofetilide 0.25 mg oral capsule (19 sources) Antiarrhythmic Start: 12-19-2024 take 1 capsule by mouth twice daily Dofetilide 250 mcg capsule Active 250 ug PO TWICE A DAY December 19, 2024 12:00am Start: 10-04-2024 Tikosyn 250 mc g oral capsule Dose : 250 mcg = 1 cap(s), Oral, BID, # 180 cap(s), 4 Refill(s), Pharmacy: [facility]/pharmacy #[id number], 177.8, cm, 10/02/24 6:28:00 EDT, Height, kg, 10/02/24 6:28:00 EDT, Dosing Weight Start Date: 10/04/24 Status: Ordered Quantity: 180.0 Unit: cap(s) Repeat number: 5 Start: 09-24-2024 Tikosyn 250 mc g oral capsule Dose : 250 mcg = 1 cap(s), Oral, BID, # 180 cap(s), 1 Refill(s), Pharmacy: [facility]/pharmacy #[id number], 175, cm, 09/05/24 16:01:00 EDT, Height, kg, 09/05/24 16:01:00 EDT, Dosing Weight Start Date: 09/24/24 Status: Ordered Quantity: 180.0 Unit: cap(s) Repeat number: 2 Start: 12-12-2023 Tikosyn 250 mc g oral capsule Dose : 250 mcg = 1 cap(s), Oral, BID, # 180 cap(s), 3 Refill(s), Pharmacy: [facility]/pharmacy #[id number], 177.8, cm, 11/28/23 13:54:00 EDT, Height, kg, 11/28/23 13:54:00 EDT, Dosing Weight Start Date: 12/12/23 Status: Ordered Quantity: 180.0 Unit: cap(s) Repeat number: 4 Start: 06-09-2023 Tikosyn 250 mc g oral capsule Dose : 250 mcg = 1 cap(s), Oral, BID, # 60 cap(s), 2 Refill(s), [facility]acy: [facility] #[id number], 176, cm, 06/07/23 13:36:00 EST, Height, kg, 06/07/23 13:36:00 EST, Dosing Weight Start Date: 06/09/23 Status: Ordered 0.5 ml dulaglutide 3 mg/ml auto-injector (14 sources) GLP-1 Receptor Agonist Start: 04-15-2024 End: 10-02-2025 inject 1 dose by subcutaneous injection every week Trulicity Pen 1.5 mg/0.5 mL subcutaneous solution Dose : 1.5 mg =, Subcutaneous, qWeek, # 12 EA, 3 Refill(s), [id number], 177.8, cm, 10/02/24 6:28:00 EDT, Height, [...] PCP, # 4 EA, 3 Refill(s), Pharmacy: [facility], 177.8, cm, 11/28/23 13:54:00 EDT, Height, kg, 11/28/23 13:54:00 EDT, Dosing Weight Start Date: 12/12/23 Stop Date: 04/02/24 Status: Ordered Start: 08-21-2023 inject 0.5 mL by sub cutaneous injection every week Trulicity Pen 0.75 mg/0.5 mL subcutaneous solution Dose : 0.75 mg = 0.5 mL, Subcutaneous, qWeek, # 2.5 mL, 5 Refill(s), 0.5 mL/Pen, [facility]acy: [facility] #[id number], 177.8, cm, 08/09/23 21:07:00 EDT, Height, kg, 08/09/23 21:07:00 EDT, Dosing Weight Start Date: 08/21/23 Status: Ordered DULoxetine 20 mg delayed release oral capsule (8 sources) Serotonin and Norepinephrine Reuptake Inhibitor Start: 12-19-2024 take 1 capsule by mouth once daily Duloxetine 20 mg capsule,delayed release(DR/EC) Active 20 mg PO DAILY December 19, 2024 12:00am Start: 10-02-2024 DULoxetine 20 mg oral delayed release capsule Dose : 20 mg = 1 cap(s), Oral, qDay Start Date: 10/02/24 Status: Ordered Repeat number: 1 FLUoxetine 10 mg oral capsule (16 sources) Serotonin Reuptake Inhibitor Start: 12-12-2023 FLUoxetine 20 mg ora l capsule Dose : 20 mg = 1 cap(s), Oral, qDay, # 30 cap(s), 3 Refill(s), Pharmacy: [facility], 177.8, cm, 11/28/23 13:54:00 EDT, Height, kg, 11/28/23 13:54:00 EDT, Dosing Weight Start Date: 12/12/23 Status: Ordered Start: 08-08-2023 End: 08-02-2024 FLUoxetine 10 mg oral capsul e Dose : 10 mg = 1 cap(s), Oral, qDay, # 30 cap(s), 0 Refill(s), Pharmacy: [facility], 175, cm, 05/14/24 13:59:00 EST, Height, kg, 05/14/24 13:57:00 EST, Dosing Weight Start Date: 05/14/24 Status: Ordered Quantity: 30.0 Unit: cap(s) Repeat number: 1 Start: 06-09-2023 FLUoxetine 10 mg oral capsule Dose : 10 mg = 1 cap(s), Oral, qDay, # 30 cap(s), 2 Refill(s), Pharmacy: [facility] #[id number], 176, cm, 06/07/23 13:36:00 EST, Height, kg, 06/07/23 13:36:00 EST, Dosing Weight Start Date: 06/09/23 Status: Ordered Start: 01-31-2023 FLUoxetine 20 mg oral tablet Dose : 20 mg = 1 tab(s), Oral, qDay, # 90 tab(s), 3 Refill(s), [facility]: [facility] #[id number], 175.3, cm, 12/23/22 6:37:00 EDT, Height, kg, 12/23/22 6:38:00 EDT, Dosing Weight Start Date: 01/31/23 Status: Ordered Start: 12-13-2022 FLUoxetine 20 mg oral tablet Dose : 20 mg = 1 tab(s), Oral, qDay, # 30 tab(s), 3 Refill(s), [facility][id number], 175.3, cm, 12/13/22 14:43:00 EDT, Height Start Date: 12/13/22 Status: Ordered Start: 11-08-2022 FLUoxetine 10 mg oral tablet Dose : 10 mg = 1 tab(s), Oral, qDay, # 30 tab(s), 2 Refill(s), Pharmacy: [facility] #[id number], 177, cm, 11/08/22 13:50:00 EDT, Height Start Date: 11/08/22 Status: Ordered 120 actuat fluticasone propionate 0.11 mg/actuat metered dose inhaler (3 sources) Corticosteroid Start: 08-08-2023 End: 08-02-2024 take 2 puff(s) by inhalation twice daily Flovent HFA 110 mcg/inh inhalation aerosol 2 puff(s), Inhalation, BID, # 3 EA, 3 Refill(s), Pharmacy: [facility] #[id number], 178.5, cm, 08/08/23 13:32:00 EDT, Height, kg, [...] daily., # 30 tab(s), 0 Refill(s), Pharmacy: [facility], 175, cm, 02/13/24 15:03:00 EDT, Height, kg, 02/13/24 15:03:00 EDT, Dosing Weight Start Date: 03/07/24 Status: Ordered Quantity: 30.0 Unit: tab(s) Repeat number: 1 Start: 12-12-2023 take 1 tablet by brandon th in the morning, then take 0.5 tablet by mouth in the evening Lasix 40 mg oral tablet See Instructions, 1 tab in AM and 0.5 tab in PM, # 135 tab(s), 3 Refill(s), Pharmacy: [facility], 177.8, cm, 11/28/23 13:54:00 EDT, Height, kg, 11/28/23 13:54:00 EDT, Dosing Weight Start Date: 12/12/23 Status: Ordered Start: 08-08-2023 take 1 tablet by brandon th in the morning, then take 0.5 tablet by mouth in the evening Lasix 40 mg oral tablet See Instructions, 1 tab in AM and 0.5 tab in PM, # 135 tab(s), 3 Refill(s), Pharmacy: [facility] #[id number], 178.5, cm, 08/08/23 13:32:00 EDT, Height, kg, 08/08/23 13:32:00 EDT, Dosing Weight Start Date: 08/08/23 Status: Ordered Start: 11-14-2022 take 1 tablet by brandon th in the morning, then take 0.5 tablet by mouth in the evening Lasix 40 mg oral tablet See Instructions, 1 tab in AM and 0.5 tab in PM, # 135 tab(s), 0 Refill(s), Pharmacy: [facility] #[id number], 177, cm, 11/08/22 13:50:00 EDT, Height, kg, 11/08/22 13:50:00 EDT, Dosing Weight Start Date: 11/14/22 Status: Ordered Start: 10-23-2022 furosemide 20 mg oral tablet Dose : 20 mg = 1 tab(s), Oral, Daily, Take 2 tablets daily for the first 3 days followed by 1 tablet daily., # 30 tab(s), 3 Refill(s), Pharmacy: [facility]/pharmacy #[id number], 175, cm, 02/09/24 15:58:00 EDT, Height, kg, 02/09/24 15:58:00 EDT, Dosing Weight Start Date: 02/09/24 Status: Ordered hydroCHLOROthiazide 50 mg oral tablet (7 sources) Thiazide Diuretic Start: 07-11-2022 take 1 tablet by mouth once daily Hydrochlorothiazide 50 mg Tablet Active 50 mg PO DAILY October 23, 2022 12:00am hydrOXYzine pamoate 25 mg oral capsule (20 sources) Antihistamine Start: 08-27-2024 End: 12-25-2024 Hydroxyzine Pamoate 25 mg capsule Active PO December 19, 2024 12:00am Start: 08-08-2023 End: 06-09-2024 Vistaril 25 mg oral capsule Dose : 25 mg = 1 cap(s), Oral, QID, PRN as needed for anxiety, X 30 day(s), # 120 cap(s), 5 Refill(s), 06/09/24 4:10:00 PM [facility], Pharmacy: [facility], 177.8, cm, 11/28/23 13:54:00 EDT, [...] 3 Refill(s), 05/31/23 2:41:00 PM EST, [facility]acy: [facility] #[id number], 175.3, cm, 12/23/22 6:37:00 EDT, Height, kg, 12/23/22 6:38:00 EDT, Dosing Weight Start Date: 01/31/23 Stop Date: 05/31/23 Status: Ordered lisinopril 40 mg oral tablet (8 sources) Angiotensin Converting Enzyme Inhibitor Start: 07-11-2022 take 1 tablet by mouth once daily Lisinopril 40 mg Tablet Active 40 mg PO DAILY October 23, 2022 12:00am losartan potassium 100 mg oral tablet (2 sources) Angiotensin 2 Receptor Kp Start: 12-23-2022 losartan 100 mg oral tablet Dose : 100 mg = 1 tab(s), Oral, qDay, # 30 tab(s), 6 Refill(s), [facility]: [facility] #[id number], 175.3, cm, 12/23/22 6:37:00 EDT, Height, kg, 12/23/22 6:38:00 EDT, Dosing Weight Start Date: 12/23/22 Status: Ordered metFORMIN hydrochloride 500 mg oral tablet (8 sources) Biguanide Start: 01-31-2023 MetFORMIN (Eqv-Fortamet) 500 mg oral tablet, EXTENDED RELEASE Dose : 500 mg = 1 tab(s), Oral, qDay, # 90 tab(s), 3 Refill(s), Pharmacy: [facility] #[id number], 175.3, cm, 12/23/22 6:37:00 EDT, Height, kg, 12/23/22 6:38:00 EDT, Dosing Weight Start Date: 01/31/23 Status: Ordered Start: 10-25-2022 MetFORMIN (Eqv -Fortamet) 500 mg oral tablet, EXTENDED RELEASE Dose : 500 mg = 1 tab(s), Oral, qDay, # 30 tab(s), 0 Refill(s) Start Date: 10/25/22 Status: Ordered Start: 10-23-2022 take 1 tablet by brandon th once daily in the evening Metformin 500 mg Tablet Extended Release 24 Hr Active 500 mg PO EVERY EVENING October 23, 2022 12:00am 24 hr metoprolol succinate 100 mg extended release oral tablet (20 sources) beta-Adrenergic Kp Start: 12-13-2024 End: 12-13-2024 Toprol-XL Start: 12/13/24 8:00:00 AM EDT, Dose = 100 mg, = 2 tab(s), Oral, Hold if SBP (mmHg) Start Date: 12/13/24 Stop Date: 12/13/24 Status: Completed Repeat number: 1 Start: 12-12-2024 End: 12-12-2024 Toprol-XL Start: 12/12/24 5:0 0:00 PM EDT, Dose = 100 mg, = 2 tab(s), Oral, Hold if SBP (mmHg) Start Date: 12/12/24 Stop Date: 12/12/24 Status: Completed Repeat number: 1 Start: 12-12-2024 End: 12-12-2024 Toprol-XL Start: 12/12/24 8:0 0:00 AM EDT, Dose = 100 mg, = 2 tab(s), Oral, Hold if SBP (mmHg) Start Date: 12/12/24 Stop Date: 12/12/24 Status: Completed Repeat number: 1 Start: 11-28-2024 End: 11-28-2024 take 1 tablet by mouth in the evening Toprol-XL Start: 11/28/24 5:00:00 PM EDT, Dose = 100 mg, = 1 tab(s), Oral, 11/24/24 16:20:00 EDT Start Date: 11/28/24 Stop Date: 11/28/24 Status: Completed Repeat number: 1 Start: 11-28-2024 End: 11-28-2024 take 1 tablet by mouth in the morning Toprol-XL Start: 11/28/24 8:00:00 AM EDT, Dose = 100 mg, = 1 tab(s), Oral, 11/24/24 16:20:00 EDT Start Date: 11/28/24 Stop Date: 11/28/24 Status: Completed Repeat number: 1 Start: 11-27-2024 End: 11-27-2024 take 1 tablet by mouth in the evening Toprol-XL Start: 11/27/24 5:00:00 PM EDT, Dose = 100 mg, = 1 tab(s), Oral, 11/24/24 16:20:00 EDT Start Date: 11/27/24 Stop Date: 11/27/24 Status: Completed Repeat number: 1 Start: 10-23-2024 [...] 02/01/24 Status: Completed Start: 08-08-2023 End: 12-18-2024 take 1 tablet by mouth twice daily Metoprolol Succinate 100 mg tablet extended release 24 hr Active 100 mg PO TWICE A DAY December 19, 2024 12:00am Start: 06-09-2023 End: 06-09-2023 Toprol-XL Start: 06/09/23 [...] chew, # 60 tab(s), 3 Refill(s), Pharmacy: [facility] #[id number], Shortness of breath, 175.3, cm, 03/22/23 13:31:00 EDT, Height, kg, 03/22/23 13:31:00 EDT, Dosing Weight Start Date: 03/22/23 Stop Date: 03/29/23 Status: Ordered Start: 12-23-2022 Toprol-XL 50 m g oral tablet, extended release Dose : 50 mg = 1 tab(s), Oral, BID, # 60 tab(s), 6 Refill(s), Pharmacy: [facility] #[id number], 175.3, cm, 12/23/22 6:37:00 EDT, Height, kg, 12/23/22 6:38:00 EDT, Dosing Weight Start Date: 12/23/22 Status: Ordered Start: 10-23-2022 take 1 tablet by brandon twice daily Metoprolol Tartrate 25 mg tablet Active 25 mg PO TWICE A DAY 60 October 23, 2022 12:00am naproxen 250 mg [...] day(s), # 30 EA, 5 Refill(s), Pharmacy: [facility] #[id number], 177, cm, 11/08/22 13:50:00 EDT, Height Start Date: 11/08/22 Stop Date: 05/07/23 Status: Ordered nystatin 470955 unt/ml topical cream (1 source) Polyene Antifungal Start: 01-12-2024 End: 02-01-2024 nystatin 100,000 units/g topical cream Apply 1 frida, Topical, BID, X 10 day(s), # 30 gram(s), 1 Refill(s), Pharmacy: [facility]/pharmacy #[id number], Cream, 177, cm, 01/12/24 9:42:00 EDT, Height, 148.6, kg, 01/12/24 9:42:00 EDT, Dosing Weight Start Date: 01/12/24 Stop Date: 02/01/24 Status: Ordered omeprazole 40 mg delayed release oral capsule (20 sources) Proton Pump Inhibitor Start: 09-19-2024 omeprazole 40 mg oral delayed release capsule Dose : 40 mg = 1 cap(s), Oral, BID, before a meal., # 180 cap(s), 0 Refill(s), [id number], 175, cm, 09/05/24 16:01:00 EDT, Height, kg, 09/05/24 16:01:00 EDT, Dosing Weight Start Date: 09/19/24 Status: Ordered Quantity: 180.0 Unit: cap(s) Repeat number: 1 Start: 12-12-2023 omeprazole 40 mg oral delayed release capsule Dose : 40 mg = 1 cap(s), Oral, BID, before a meal., # 180 cap(s), 3 Refill(s), Pharmacy: [facility], 177.8, cm, 11/28/23 13:54:00 EDT, Height, kg, 11/28/23 13:54:00 EDT, Dosing Weight Start Date: 12/12/23 Status: Ordered Quantity: 180.0 Unit: cap(s) Repeat number: 4 Start: 08-08-2023 omeprazole 40 mg oral delayed release capsule Dose : 40 mg = 1 cap(s), Oral, BID, before a meal., # 180 cap(s), 3 Refill(s), [id number], 178.5, cm, 08/08/23 13:32:00 EDT, Height, kg, 08/08/23 13:32:00 EDT, Dosing Weight Start Date: 08/08/23 Status: Ordered Start: 05-26-2023 omeprazole 40 mg oral delayed release capsule Dose : 40 mg = 1 cap(s), Oral, BID, before a meal. sent in absence of PCP, # 60 cap(s), 0 Refill(s), Pharmacy: [facility] #[id number], 152.8, cm, 05/12/23 11:14:00 EST, Height, kg, 05/12/23 11:14:00 EST, Dosing Weight Start Date: 05/26/23 Status: Ordered Start: 10-23-2022 End: 05-14-2023 omeprazole 40 mg oral delaye d release capsule Dose : 40 mg = 1 cap(s), Oral, BID, before a meal, # 60 cap(s), 1 Refill(s), Pharmacy: [facility] #[id number], 175.9, cm, 02/15/23 13:56:00 EDT, Height, kg, 02/15/23 13:56:00 EDT, Dosing Weight Start Date: 03/15/23 Stop Date: 05/14/23 Status: Ordered penicillin v potassium 500 mg oral tablet (1 source) Start: 05-14-2024 End: 05-24-2024 penicillin V potassium 500 mg oral tablet Dose : 500 mg = 1 tab(s), Oral, q8h, X 10 day(s), # 30 tab(s), 0 Refill(s), 05/24/24 2:36:00 PM EST, Pharmacy: [facility]/pharmacy #[id number], 175, cm, 05/14/24 13:59:00 EST, Height, 143.9, kg, 05/14/24 13:57:00 EST, Dosing Weight Start Date: 05/14/24 Stop Date: 05/24/24 Status: Ordered Quantity: 30.0 Unit: tab(s) Repeat number: 1 polyethylene glycol 3350 with electrolytes oral powder for reconstitution (2 sources) Start: 02-15-2023 polyethylene g lycol 3350 with electrolytes oral powder for reconstitution See Instructions, As directed by provider at [facility]., # 1 EA, 0 Refill(s), Pharmacy: [facility] #[id number], Colon cancer screening, 175.9, cm, 02/15/23 13:56:00 EDT, Height, kg, 02/15/23 13:56:00 EDT, Dosing Weight Start Date: 02/15/23 Status: Ordered microencapsulated potassium chloride 20 meq extended release oral tablet (17 sources) Start: 12-19-2024 take 1 tablet by mouth once daily Potassium Chloride 20 mEq tablet,ER particles/crystals Active 20 meq PO DAILY December 19, 2024 12:00am Start: 10-04-2024 Potassium Chlo ride (Eqv-K-Tab) 20 mEq oral tablet, extended release Dose : 20 mEq = 1 tab(s), Oral, qDay, Take with food, # 90 tab(s), 3 Refill(s), [id number], 177.8, cm, 10/02/24 6:28:00 EDT, Height, kg, 10/02/24 6:28:00 EDT, Dosing Weight Start Date: 10/04/24 Status: Ordered Quantity: 90.0 Unit: tab(s) Repeat number: 4 Start: 02-09-2024 Potassium Chlo ride (Eqv-K-Tab) 10 mEq oral tablet, extended release Dose : 10 mEq = 1 tab(s), Oral, qDay, # 30 tab(s), 3 Refill(s), [id number], 175, cm, 02/09/24 15:58:00 EDT, Height, [...] Ordered pravastatin sodium 40 mg oral tablet (10 sources) HMG-CoA Reductase Inhibitor Start: 12-19-2024 take 1 tablet by mouth once daily Pravastatin 40 mg tablet Active 40 mg PO DAILY December 19, 2024 12:00am Start: 08-29-2024 pravastatin 40 mg oral tablet Dose : 40 mg = 1 tab(s), Oral, qDay, # 30 tab(s), 0 Refill(s) Start Date: 08/29/24 Status: Ordered Quantity: 30.0 Unit: tab(s) Repeat number: 1 Start: 02-13-2024 pravastatin 40 mg oral tablet Dose : 40 mg = 1 tab(s), Oral, Daily, # 100 tab(s), 3 Refill(s), Pharmacy: [facility], 175, cm, 02/13/24 15:03:00 EDT, Height, kg, 02/13/24 15:03:00 EDT, Dosing Weight Start Date: 02/13/24 Status: Ordered predniSONE 20 mg oral tablet (2 sources) Start: 12-14-2024 End: 12-15-2024 predniSONE 20 mg oral tablet Dose : 40 mg = 2 tab(s), Oral, qDayM, X 1 day(s), # 2 tab(s), 0 Refill(s), 12/15/24 8:54:00 AM EDT, other reason (Rx) Start Date: 12/14/24 Stop Date: 12/15/24 Status: Ordered Quantity: 2.0 Unit: tab(s) Repeat number: 1 Start: 06-13-2023 End: 06-18-2023 predniSONE 20 mg oral tablet Dose : 40 mg = 2 tab(s), Oral, qDay, X 5 day(s), # 10 tab(s), 0 Refill(s), 06/18/23 1:02:00 AM EST Start Date: 06/13/23 Stop Date: 06/18/23 Status: Ordered rivaroxaban 10 mg oral tablet (20 sources) Factor Xa Inhibitor Start: 12-19-2024 take 2 tablets by mouth once daily Rivaroxaban (Xarelto) 10 mg tablet Active 20 mg PO DAILY December 19, 2024 12:00am Start: 10-04-2024 Xarelto 20 mg oral tablet Dose : 20 mg = 1 tab(s), Oral, qHS, # 90 tab(s), 11 Refill(s), Pharmacy: [facility]/pharmacy #[id number], 177.8, cm, 10/02/24 6:28:00 EDT, Height, 140.3, kg, 10/02/24 6:28:00 EDT, Dosing Weight Start Date: 10/04/24 Status: Ordered Quantity: 90.0 Unit: tab(s) Repeat number: 12 Start: 12-12-2023 Xarelto 20 mg oral tablet Dose : 20 mg = 1 tab(s), Oral, qHS, # 90 tab(s), 3 Refill(s), Pharmacy: [facility], 177.8, cm, 11/28/23 13:54:00 EDT, Height, 151.4, kg, 11/28/23 13:54:00 EDT, Dosing Weight Start Date: 12/12/23 Status: Ordered Quantity: 90.0 Unit: tab(s) Repeat number: 4 Start: 10-23-2022 End: 02-06-2023 Xarelto 20 mg oral tablet Do se : 20 mg = 1 tab(s), Oral, qHS, # 90 tab(s), 3 Refill(s), Pharmacy: [facility] #[id number], 178.5, cm, 08/08/23 13:32:00 EDT, Height, 156.7, kg, 08/08/23 13:32:00 EDT, Dosing Weight Start Date: 08/08/23 Status: Ordered rosuvastatin calcium 20 mg oral tablet (3 sources) HMG-CoA Reductase Inhibitor Start: 12-12-2023 rosuvastatin 20 mg oral tablet Dose : 20 mg = 1 tab(s), Oral, Daily, # 100 tab(s), 3 Refill(s), Pharmacy: [facility], 177.8, cm, 11/28/23 13:54:00 EDT, [...] BID, # 180 tab(s), 3 Refill(s), Pharmacy: [facility], 177.8, cm, 11/28/23 13:54:00 EDT, Height, kg, 11/28/23 13:54:00 EDT, Dosing Weight Start Date: 12/12/23 Stop Date: 12/06/24 Status: Ordered Start: 03-22-2023 take 1 tablet by brandon th twice daily sacubitril-valsartan 49 mg-51 mg oral tablet Dose = 1 tab(s), Oral, BID, # 60 tab(s), 3 Refill(s), Pharmacy: [facility] #[id number], 175.3, cm, 03/22/23 13:31:00 EDT, Height, kg, 03/22/23 13:31:00 EDT, Dosing Weight Start Date: 03/22/23 Status: Ordered spironolactone 25 mg oral tablet (20 sources) Aldosterone Antagonist Start: 12-19-2024 take 1 tablet by mouth once daily Spironolactone 25 mg tablet Active 25 mg PO DAILY December 19, 2024 12:00am Start: 08-08-2023 End: 12-06-2024 spironolactone 25 mg oral ta blet Dose : 25 mg = 1 tab(s), Oral, qDay, # 90 tab(s), 3 Refill(s), Pharmacy: [facility], 177.8, cm, 11/28/23 13:54:00 EDT, Height, kg, 11/28/23 13:54:00 EDT, Dosing Weight Start Date: 12/12/23 Stop Date: 12/06/24 Status: Ordered Quantity: 90.0 Unit: tab(s) Repeat number: 4 Start: 02-07-2023 spironolactone 25 mg oral tablet Dose : 25 mg = 1 tab(s), Oral, qDay, # 60 tab(s), 5 Refill(s), Pharmacy: [facility] #[id number], 175.3, cm, 12/23/22 6:37:00 EDT, Height, kg, 12/23/22 6:38:00 EDT, Dosing Weight Start Date: 02/07/23 Status: Ordered Start: 11-24-2022 spironolactone 25 mg oral tablet Dose : 25 mg = 1 tab(s), Oral, qDay, # 60 tab(s), 0 Refill(s), Pharmacy: [facility] #[id number], 177, cm, 11/08/22 13:50:00 EDT, Height, kg, 11/08/22 13:50:00 EDT, Dosing Weight Start Date: 11/24/22 Status: Ordered Start: 11-04-2022 spironolactone 25 mg oral tablet Dose : 25 mg = 1 tab(s), Oral, BIDM, # 60 tab(s), 0 Refill(s), Pharmacy: [facility] #[id number], 175.3, cm, 11/04/22 8:52:00 EDT, Height Start Date: 11/04/22 Status: Ordered Symbicort 80 mcg-4.5 mcg/inh Inhaler (13 sources) Start: 07-29-2024 End: 07-24-2025 take 1 dose by inhalation twice daily Symbicort 80 mcg-4.5 mcg/inh Inhaler Dose = 2 puff(s), Inhalation, BID, # 30.6 gram(s), 3 Refill(s), Pharmacy: [facility], 182, cm, 06/12/24 13:53:00 EST, [...] BID, # 10.2 gram(s), 3 Refill(s), Pharmacy: [facility], 177.8, cm, 11/28/23 13:54:00 EDT, Height, kg, 11/28/23 13:54:00 EDT, Dosing Weight Start Date: 12/12/23 Stop Date: 04/10/24 Status: Ordered timolol 2.5 mg/ml ophthalmic solution (10 sources) beta-Adrenergic Kp Start: 10-25-2022 take 1 dose into the eye(s) twice daily timolol maleate 0.25% ophthalmic solution Dose = 1 drop(s), Eyes, both, BID, # 5 mL, 0 Refill(s) Start Date: 10/25/22 Status: Ordered Start: 10-23-2022 Timolol Maleat e 0.25 % Drops Active 1 NMA EACH EYE DAILY October 23, 2022 12:00am tiZANidine 2 mg oral tablet (14 sources) Central alpha-2 Adrenergic Agonist Start: 12-19-2024 take 1 tablet by mouth three times daily Tizanidine 2 mg tablet Active 2 mg PO THREE TIMES A DAY December 19, 2024 12:00am Start: 08-26-2024 End: 09-23-2024 tiZANidine 2 mg oral tablet Dose : 2 mg = 1 tab(s), Oral, q8h, PRN as needed for muscle spasm, # 21 tab(s), 3 Refill(s), Pharmacy: [facility], 182, cm, 06/12/24 13:53:00 EST, Height, kg, 06/12/24 13:53:00 EST, Dosing Weight Start Date: 08/26/24 Stop Date: 09/23/24 Status: Ordered Quantity: 21.0 Unit: tab(s) Repeat number: 4 Start: 03-04-2024 tiZANidine 2 m g oral tablet Dose : 2 mg = 1 tab(s), Oral, q8h, PRN as needed for muscle spasm, # 90 tab(s), 2 Refill(s), Pharmacy: [facility], 175, cm, 02/13/24 15:03:00 EDT, Height, kg, 02/13/24 15:03:00 EDT, Dosing Weight Start Date: 03/04/24 Status: Ordered Quantity: 90.0 Unit: tab(s) Repeat number: 3 Start: 01-08-2024 tiZANidine 2 m g oral tablet Dose : 2 mg = 1 tab(s), Oral, q8h, PRN as needed for muscle spasm, # 90 tab(s), 2 Refill(s), Pharmacy: [facility], 177.8, cm, 11/28/23 13:54:00 EDT, Height, kg, 11/28/23 13:54:00 EDT, Dosing Weight Start Date: 01/08/24 Status: Ordered traMADol hydrochloride 50 mg oral tablet (1 source) Opioid Agonist Start: 12-19-2024 take 1 tablet by mouth four times daily as needed for pain Tramadol 50 mg tablet Active 50 mg PO 4 TIMES DAILY NEEDED as needed for pain December 19, 2024 12:00am traZODone hydrochloride 100 mg oral tablet (20 sources) Serotonin Reuptake Inhibitor Start: 12-19-2024 take 1 tablet by mouth at bedtime Trazodone 100 mg tablet Active 100 mg PO AT BEDTIME December 19, 2024 12:00am Start: 10-09-2024 traZODone 100 mg oral tablet Dose : 100 mg = 1 tab(s), Oral, qHS, # 90 tab(s), 3 Refill(s), [id number], 177.8, cm, 10/09/24 13:44:00 EDT, Height, kg, 10/09/24 13:44:00 EDT, Dosing Weight Start Date: 10/09/24 Status: Ordered Quantity: 90.0 Unit: tab(s) Repeat number: 4 Start: 09-19-2024 traZODone 100 mg oral tablet Dose : 100 mg = 1 tab(s), Oral, qHS, # 90 tab(s), 2 Refill(s), Pharmacy: [facility]/pharmacy #[id number], 175, cm, 09/05/24 16:01:00 EDT, Height, kg, 09/05/24 16:01:00 EDT, Dosing Weight Start Date: 09/19/24 Status: Ordered Quantity: 90.0 Unit: tab(s) Repeat number: 3 Start: 12-12-2023 traZODone 100 mg oral tablet Dose : 100 mg = 1 tab(s), Oral, qHS, # 90 tab(s), 3 Refill(s), Pharmacy: [facility], 177.8, cm, 11/28/23 13:54:00 EDT, Height, kg, 11/28/23 13:54:00 EDT, Dosing Weight Start Date: 12/12/23 Status: Ordered Quantity: 90.0 Unit: tab(s) Repeat number: 4 Start: 08-08-2023 traZODone 100 mg oral tablet Dose : 100 mg = 1 tab(s), Oral, qHS, # 90 tab(s), 3 Refill(s), Pharmacy: [facility] #[id number], 178.5, cm, 08/08/23 13:32:00 EDT, Height, kg, 08/08/23 13:32:00 EDT, Dosing Weight Start Date: 08/08/23 Status: Ordered Start: 12-13-2022 End: 04-12-2023 traZODone 100 mg oral tablet Dose : 100 mg = 1 tab(s), Oral, qHS, # 90 tab(s), 3 Refill(s), Pharmacy: [facility] #[id number], 175.3, cm, 12/23/22 6:37:00 EDT, Height, kg, 12/23/22 6:38:00 EDT, Dosing Weight Start Date: 01/31/23 Status: Ordered Start: 11-08-2022 End: 02-06-2023 traZODone 50 mg oral tablet Dose : 50 mg = 1 tab(s), Oral, qHS, # 30 tab(s), 2 Refill(s), Pharmacy: [facility] #[id number], 177, cm, 11/08/22 13:50:00 EDT, Height, kg, [...] day(s), # 30 gram(s), 0 Refill(s), Pharmacy: [facility] #[id number], Cream, 175.3, cm, 12/13/22 14:43:00 EDT, Height, [...] 4 EA, 3 Refill(s), generic OZEMPIC, Pharmacy: [facility] #[id number], 178.5, cm, 08/08/23 13:32:00 EDT, Height, kg, 08/08/23 13:32:00 EDT, Dosing Weight Start Date: 08/08/23 Stop Date: 12/06/23 Status: Ordered brimonidine tartrate 1 mg/ml ophthalmic solution (10 sources) alpha-Adrenergic Agonist Start: 10-25-2022 Alphagan P 0.1% ophthalmic solution Dose = 1 drop(s), Eyes, both, q8h, # 15 mL, 0 Refill(s) Start Date: 10/25/22 Status: Ordered Start: 10-23-2022 take 0.15 drop(s) in to the eye(s) at bedtime Brimonidine (Alphagan P) 0.15 % Drops Active 1 NMA EACH EYE AT BEDTIME October 23, 2022 12:00am Start: 10-23-2022 take 0.15 drop(s) in to the eye(s) at bedtime Brimonidine (Alphagan P) 0.15 % Drops Active 1 DRP EACH EYE AT BEDTIME October 23, 2022 12:00am cetirizine hydrochloride 10 mg oral tablet (16 sources) Histamine-1 Receptor Antagonist Start: 08-08-2023 End: 12-06-2024 cetirizine 10 mg oral tablet Dose : 10 mg = 1 tab(s), Oral, Daily, # 90 tab(s), 3 Refill(s), Pharmacy: [facility], 177.8, cm, 11/28/23 13:54:00 EDT, Height, kg, 11/28/23 13:54:00 EDT, Dosing Weight Start Date: 12/12/23 Stop Date: 12/06/24 Status: Ordered Quantity: 90.0 Unit: tab(s) Repeat number: 4 Problems Active Problems Problem Classification Problem Date Documented Date Episodic/Chronic Abdominal pain (5 sources) Right flank pain 11-07-2023 Episodic Acute and unspecified renal failure (1 source) Acute renal failure syndrome; 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: [Acute kidney failure, unspecified] Episodic Allergic reactions (20 sources) Atopic dermatitis 12-13-2022 Chronic Anxiety disorders (20 sources) Anxiety; 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: [Generalized anxiety disorder] 11-08-2022 Chronic Asthma (20 sources) Exacerbation of asthma; 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: [Moderate asthma] 06-20-2023 Chronic Bacterial infection; unspecified site (9 sources) Bacteremia; 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: [Bacteremia] Onset: 11-24-2024 Episodic Cardiac dysrhythmias (20 sources) Atrial fibrillation; 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: [Unspecified atrial fibrillation] Onset: 10-16-2024 10-23-2022 Chronic Cardiac dysrhythmias (7 sources) Tachyarrhythmia ; 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: [Tachycardia, unspecified] Onset: 10-02-2024 Episodic Chronic obstructive pulmonary disease and bronchiectasis (12 sources) Acute exacerbation of chronic obstructive airways disease; 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: [Chronic obstructive lung disease] Onset: 11-24-2024 08-13-2024 Chronic Chronic obstructive pulmonary disease and bronchiectasis (7 sources) Bronchitis 08-13-2024 Episodic Chronic obstructive pulmonary disease and bronchiectasis (1 source) Chronic obstructive pulmonary disease and bronchiectasis; 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: [Other specified chronic obstructive pulmonary disease] Onset: 11-24-2024 Complications of surgical procedures or medical care (2 sources) Superficial incisional surgical site infection; 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: [Infection following a procedure, superficial incisional surgical site, initial encounter] Onset: 11-24-2024 Episodic Conduction disorders (1 source) Left anterior fascicular block; 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: [Left anterior fascicular block] Chronic Congestive heart failure; nonhypertensive (17 sources) Acute exacerbation of chronic congestive heart failure; 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: [Heart failure, unspecified] Onset: 10-16-2024 10-23-2022 Chronic Diabetes mellitus with complications (2 sources) Complication due to diabetes mellitus; 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: [Type 2 diabetes mellitus with other specified complication] Onset: 12-10-2024 Chronic Diabetes mellitus without complication (20 sources) Diabetes mellitus; 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: [Type 2 diabetes mellitus] Onset: 08-08-2023 11-04-2022 Chronic Diabetes mellitus without complication (15 sources) Prediabetes 12-13-2022 Episodic Disorders of lipid metabolism (6 sources) Hyperlipidemia 11-07-2023 Chronic Disorders of teeth and jaw (10 sources) Periapical abscess; 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: [Periapical abscess without sinus] Onset: 07-15-2022 Episodic Esophageal disorders (5 sources) Gastroesophageal reflux disease without esophagitis; 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: [Gastro-esophageal reflux disease without esophagitis] Onset: 11-24-2024 Chronic Essential hypertension (20 sources) Hypertensive disorder; 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: [Essential (primary) hypertension] Onset: 08-08-2023 11-04-2022 Chronic Fluid and electrolyte disorders (5 sources) Acute hypokalemia; 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: [Hypokalemia] Onset: 10-27-2022 10-23-2022 Episodic Hypertension with complications and secondary hypertension (5 sources) Hypertensive heart disease; 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: [Hypertensive heart disease without heart failure] Onset: 11-24-2024 Chronic Mood disorders (9 sources) Depressive disorder; 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: [Depression, unspecified] Onset: 11-25-2024 09-05-2024 Chronic Mood disorders (2 sources) Mood disorders; 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: [Depression, unspecified] Onset: 11-24-2024 Nonspecific chest pain (14 sources) Chest pain; 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: [Chest pain, unspecified] Onset: 10-27-2022 10-23-2022 Episodic Other aftercare (1 source) Drug monitoring done; 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: [Encounter for therapeutic drug level monitoring] Episodic Other aftercare (2 sources) Long-term current use of anticoagulant; 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: [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 anticoagulants] Episodic Other aftercare (1 source) Procedure carried out on subject; 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: [Encounter for other specified aftercare] Onset: 12-04-2024 Episodic Other aftercare (1 source) Encounter for surgical aftercare following surgery on the skin and subcutaneous tissue; 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: [Encounter for surgical aftercare following surgery on the skin and subcutaneous tissue] Onset: 11-14-2024 Episodic Other aftercare (1 source) 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 anticoagulants; 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: [retirement (current) use of anticoagulants] Onset: 10-16-2024 Episodic Other aftercare (1 source) Encounter for other specified aftercare; 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: [Encounter for other specified aftercare] Onset: 12-04-2024 Episodic Other and ill-defined heart disease (7 sources) Left ventricular hypertrophy 06-12-2024 Chronic Other circulatory disease (3 sources) H/O: hypertension; 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: [Personal history of other diseases of the circulatory system] 10-23-2022 Episodic Other circulatory disease (1 source) Low blood pressure; 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: [Hypotension, unspecified] Episodic Other connective tissue disease (1 source) Foot pain; 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: [Pain in unspecified foot] Onset: 10-27-2022 Episodic Other connective tissue disease (1 source) Pain in upper limb; 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: [Pain in arm, unspecified] Onset: 08-09-2023 Episodic Other lower respiratory disease (12 sources) Dyspnea; 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: [Shortness of breath] Onset: 06-07-2023 Episodic Other lower respiratory disease (9 sources) Wheezing 08-08-2023 Episodic Other lower respiratory disease (7 sources) Cough 08-27-2024 Episodic Other lower respiratory disease (2 sources) Shortness of breath; 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: [Shortness of breath] Onset: 11-24-2024 Episodic Other lower respiratory disease (1 source) Hypoxia; 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: [Hypoxemia] 12-20-2024 Episodic Other nervous system disorders (1 source) Postoperative pain ; 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: [Other acute postprocedural pain] Onset: 10-17-2024 Episodic Other nervous system disorders (1 source) Other acute postprocedural pain; 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: [Other acute postprocedural pain] Onset: 10-16-2024 Episodic Other non-traumatic joint disorders (20 sources) Knee pain 02-07-2023 Episodic Other nutritional; endocrine; and metabolic disorders (20 sources) Body mass index 40+ - severely obese; 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: [Body mass index (BMI) 40.0-44.9, adult] 11-08-2022 Chronic Other nutritional; endocrine; and metabolic disorders (20 sources) Morbid obesity; 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: [Morbid (severe) obesity due to excess calories] Onset: 12-11-2024 11-04-2022 Chronic Other nutritional; endocrine; and metabolic disorders (1 source) Hypomagnesemia; 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: [Hypomagnesemia] Chronic Other nutritional; endocrine; and metabolic disorders (1 source) Hypomagnesemia; 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: [Hypomagnesemia] Onset: 11-24-2024 Chronic Other nutritional; endocrine; and metabolic disorders (1 source) Body mass index (BMI) 40.0-44.9, adult; 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: [Body mass index [BMI] 40.0-44.9, adult] Onset: 10-16-2024 Chronic Other nutritional; endocrine; and metabolic disorders (2 sources) Morbid (severe) obesity due to excess calories; 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: [Morbid (severe) obesity due to excess calories] Onset: 10-16-2024 Chronic Other nutritional; endocrine; and metabolic disorders (3 sources) History of diabetes mellitus type 2; [...] 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: [Obstructive sleep apnea (adult) (pediatric)] Onset: 11-24-2024 Chronic Residual codes; unclassified (20 sources) Insomnia 11-08-2022 Episodic Respiratory failure; insufficiency; arrest (adult) (4 sources) Acute respiratory failure; 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: [Acute respiratory failure with hypoxia] Onset: 11-24-2024 Episodic Shock (1 source) Shock; 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: [Other shock] Episodic Sprains and strains (1 source) Sprain of wrist; 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: [Unspecified sprain of unspecified wrist, initial encounter] Onset: 07-11-2022 Episodic Substance-related disorders (20 sources) Nicotine dependence 11-08-2022 Chronic Superficial injury; contusion (1 source) Contusion of right chest wall; 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: [Contusion of right front wall of thorax, initial encounter] Onset: 05-05-2023 Episodic Syncope (12 sources) Syncope and collapse; 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: [Syncope and collapse] Episodic Unclassified (20 sources) Patient encounter status 11-08-2022 Unclassified (1 source) Acute cough; 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: [Acute cough] Onset: 10-11-2023 Unclassified (8 sources) Statin not tolerated (context-dependent category) 05-14-2024 Unclassified (1 source) Other persistent atrial fibrillation; 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: [Other persistent atrial fibrillation] Onset: 10-02-2024 Unclassified (1 source) Sheltered homelessness; 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: [Sheltered homelessness] Onset: 12-10-2024 Past or Other Problems Problem Classification Problem Date Documented Da te Episodic/Chronic Fracture of lower limb (9 sources) Bimalleolar fracture of ankle ; 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: [Displaced bimalleolar fracture of right lower leg, initial encounter for closed fracture] Onset: 08-29-2024 Episodic Other connective tissue disease (1 source) Cramp and spasm; 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: [Cramp and spasm] Onset: 01-12-2022 Episodic Other injuries and conditions due to external causes (1 source) Unspecified injury of left lower leg, initial encounter; 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: [Unspecified injury of left lower leg, initial encounter] Onset: 08-29-2024 Episodic Other non-traumatic joint disorders (1 source) Pain in right elbow; 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: [Pain in right elbow] Onset: 04-12-2022 Episodic Other skin disorders (2 sources) Disorder of the skin and subcutaneous tissue, unspecified; 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: [Disorder of the skin and subcutaneous tissue, unspecified] Onset: 03-25-2024 Episodic Unclassified (1 source) Sheltered homelessness; 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: [Sheltered homelessness] Onset: 12-11-2024 Results Test Name Value Interpretation Reference Range Facility Troponin T.cardiac [Mass/vol ume] in Serum or Plasma by High sensitivity methodOrdered By: Nguyễn Al on 12-20-2024 Troponin T.cardiac High sensitivity method [Mass/Vol] 16 ng/L <22 [facility] Absolute lymphocyte countOrd ered By: Nguyễn Al on 12-19-2024 Lymphocytes Auto (Unsp spec) [#/Vol] 1.20 10*3/uL 0.83-4.51 [facility] Absolute neutrophil countOrd ered By: Nguyễn Al on 12-19-2024 Neutrophils (Bld) [#/Vol] 6.1 10*3/uL 2.0-7.7 [facility] Anion gap in Serum or Plasma Ordered By: Nguyễn Al on 12-19-2024 Anion gap [Moles/Vol] 10 mmol/L 5-15 [facility] Automated lymphocyte count a s percentage of total leukocytesOrdered By: Nguyễn Al on 12-19-2024 Lymphocytes/100 WBC Auto (Unsp spec) 14.4 % Low 19-41 [facility] BUN/creatinine ratioOrdered By: Nguyễn Al on 12-19-2024 Urea nitrogen/Creatinine [Mass ratio] 13.8 mg/mg 10-20 [facility] Basophil percentageOrdered B y: Nguyễn Al on 12-19-2024 Basophils/100 WBC (Bld) 0.5 % 0-1 [facility] Carbon dioxide, total [Moles /volume] in Central venous bloodOrdered By: Nguyễn Al on 12-19-2024 CO2 [Moles/Vol] 25.7 mmol/L 21.0-32.0 [facility] Chloride assayOrdered By: Shankar Al on 12-19-2024 Chloride [Moles/Vol] 97 mmol/L Low 98-[address] [facility] Eosinophil percentageOrdered By: Nguyễn Al on 12-19-2024 Eosinophils/100 WBC (Bld) 1.3 % 0-5 [facility] Erythrocyte distribution wid th ratioOrdered By: Nguyễn Al on 12-19-2024 Erythrocyte distribution width (RBC) [Ratio] 13.9 % 11.6-14.6 [facility] Erythrocyte distribution wid th standard deviationOrdered By: Nguyễn Al on 12-19-2024 Erythrocyte distribution width (RBC) [Ratio] 44.8 fl High 35.1-43.9 [facility] Glomerular filtration rate ( GFR) estimation/1.73 sq m using serum, plasma, or whole bOrdered By: Nguyễn Al on 12-19-2024 GFR/1.73 sq M.predicted among non-blacks MDRD (S/P/Bld) [Vol rate/Area] 89 mL/min/{1.73_m2} >60 [facility] Comment on above: mL/min/1.73m2 CKD-EP I Creatinine Equation (2020) Hematocrit Auto (Bld) [Volum e fraction]Ordered By: Nguyễn Al 12-19-2024 Hematocrit (Bld) [Volume fraction] 44.2 % 40-54 [facility] Hemoglobin measurementOrdere d By: Nguyễn Al on 12-19-2024 Hemoglobin (Bld) [Mass/Vol] 13.7 g/dL 13.0-16.5 [facility] Immature granulocytes/100 WB C Auto (Bld)Ordered By: Nguyễn Al 12-19-2024 Immature granulocytes/100 WBC (Bld) 0.200 % 0.0-0.9 [facility] Comment on above: IG% - Immature Granu locytes (promyelocytes, myelocytes and metamyelocytes) > 1% indicates that a LEFT SHIFT is Present. International normalized rat io (INR) calculationOrdered By: Nguyễn Al on 12-19-2024 INR Coag (Bld) [Relative time] 1.5 {INR} [facility] MCV (mean corpuscular volume ) determinationOrdered By: Nguyễn Al on 12-19-2024 MCV (RBC) [Entitic vol] 87.7 fL 80-94 [facility] Mean corpuscular hemoglobin (MCH) determinationOrdered By: Nguyễn Al on 12-19-2024 MCH (RBC) [Entitic mass] 27.2 pg 27.0-32.0 [facility] Mean corpuscular hemoglobin concentration (MCHC) determinationOrdered By: Nguyễn Al on 12-19-2024 MCHC (RBC) [Mass/Vol] 31.0 g/dL Low 32-36 [facility] Mean platelet volume determi nationOrdered By: Nguyễn Al on 12-19-2024 Platelet mean volume (Bld) [Entitic vol] 9.8 fL 6.2-12.0 [facility] Monocyte percentageOrdered B y: Nguyễn Al on 12-19-2024 Monocytes/100 WBC (Bld) 10.6 % High 0-10 [facility] Neutrophil percentageOrdered By: Nguyễn Al on 12-19-2024 Neutrophils/100 WBC (Bld) 73.0 % High 47-70 [facility] Nucleated red blood cell per centageOrdered By: Nguyễn Al on 12-19-2024 Nucleated RBC/100 WBC (Bld) [Ratio] 0 % 0-5 [facility] Platelet countOrdered By: Shankar Al on 12-19-2024 Platelets (Bld) [#/Vol] 177 10*3/uL 150-450 [facility] Potassium measurement (mass/ volume)Ordered By: Nguyễn Al on 12-19-2024 Potassium (Unsp spec) [Mass/Vol] 4.1 mmol/L 3.3-5.1 [facility] Prothrombin timeOrdered By: Nguyễn Al on 12-19-2024 PT Coag (PPP) [Time] 18.1 s High 11.7-14.[address] [facility] RBC Auto (Bld) [#/Vol]Ordere d By: Nguyễn Al on 12-19-2024 RBC (Bld) [#/Vol] 5.04 10*6/uL 4.6-6.2 [facility] Serum creatinine measurement (mass/volume)Ordered By: Nguyễn Al on 12-19-2024 Creatinine [Mass/Vol] 1.01 mg/dL 0.70-1.20 [facility] Serum glucose measurement (m ass/volume)Ordered By: Nguyễn Al on 12-19-2024 Glucose [Mass/Vol] 180 mg/dL High 70-99 [facility] Serum or plasma calcium scott urement (mass/volume)Ordered By: Nguyễn Al on 12-19-2024 Calcium [Mass/Vol] 8.8 mg/dL 7.6-11.0 [facility] Serum or plasma urea nitroge n measurement (mass/volume)Ordered By: Nguyễn Al on 12-19-2024 Urea nitrogen [Mass/Vol] 14 mg/dL 4-19 [facility] Sodium levelOrdered By: Nguyễn Al on 12-19-2024 Sodium [Moles/Vol] 133 mmol/L 133-145 [facility] Troponin T.cardiac [Mass/vol ume] in Serum or Plasma by High sensitivity methodOrdered By: Nguyễn Al on 12-19-2024 Troponin T.cardiac High sensitivity method [Mass/Vol] 11 ng/L <22 [facility] White blood cell (WBC) count Ordered By: Nguyễn Al on 12-19-2024 WBC (Bld) [#/Vol] 8.4 10*3/uL 4.4-11.0 [facility] .GFRon 12-13-2024 Estimated Glomerular Filtration Rate 109 ml/min/1.73sqm Normal [facility] Comment on above: Result Comment: Stages of [...] the eGFR results. Performed By: #### A ELY REYES, BMP, MG, GFR, ADIFF, DIMER, CBC, PBNP, TROPHS #### [address] [address] BMPon 12-13-2024 BUN/Creatinine Ratio 29 ratio High 7-27 [facility] Comment on above: Order Comment: Speci men hemolyzed. Notified BuzzVotecey @12/13/2024 09:23:59 EDT BP Performed By: #### A ELY REYES, BMP, MG, GFR, ADIFF, DIMER, CBC, PBNP, TROPHS #### [address] [address] Calcium [Mass/Vol] 8.8 mg/dL Normal 8.4-10.2 [facility] Comment on above: Order Comment: Speci men hemolyzed. Notified [employer]Votecey @12/13/2024 09:23:59 EDT BP Performed By: #### A ELY REYES, BMP, MG, GFR, ADIFF, DIMER, CBC, PBNP, TROPHS #### [address] [address] Chloride [Moles/Vol] 102 mmol/L Normal 98-107 [facility] Comment on above: Order Comment: Speci men hemolyzed. Notified [employer]Votecey @12/13/2024 09:23:59 EDT BP Performed By: #### A ELY REYES, BMP, MG, GFR, ADIFF, DIMER, CBC, PBNP, TROPHS #### [address] [address] CO2 [Moles/Vol] 32 mmol/L High 22-29 [facility] Comment on above: Order Comment: Speci men hemolyzed. Notified [employer]otecey @12/13/2024 09:23:59 EDT BP Performed By: #### A ELY REYES, BMP, MG, GFR, ADIFF, DIMER, CBC, PBNP, TROPHS #### [address] [address] Creatinine [Mass/Vol] 0.73 mg/dL Normal 0.67-1.17 [facility] Comment on above: Order Comment: Speci men hemolyzed. Notified BuzzVoteeliezery @12/13/2024 09:23:59 EDT BP Performed By: #### A ELY REYES, BMP, MG, GFR, ADIFF, DIMER, CBC, PBNP, TROPHS #### [address] [address] Electrolyte Balance 4.0 mEq/L Normal 4.0-15.0 [facility] Comment on above: Order Comment: Speci men hemolyzed. Notified [employer]Votecey @12/13/2024 09:23:59 EDT BP Performed By: #### A ELY REYES, BMP, MG, GFR, ADIFF, DIMER, CBC, PBNP, TROPHS #### [address] [address] Glucose [Mass/Vol] 137 mg/dL High 70-105 [facility] Comment on above: Order Comment: Speci men hemolyzed. Notified [employer]y @12/13/2024 09:23:59 EDT BP Performed By: #### A ELY REYES, BMP, MG, GFR, ADIFF, DIMER, CBC, PBNP, TROPHS #### [address] [address] Potassium [Moles/Vol] 3.9 mmol/L Normal 3.5-5.1 [facility] Comment on above: Order Comment: Speci men hemolyzed. Notified [employer]Votecey @12/13/2024 09:23:59 EDT BP Performed By: #### A ELY REYES, BMP, MG, GFR, ADIFF, DIMER, CBC, PBNP, TROPHS #### [address] [address] Sodium [Moles/Vol] 138 mmol/L Normal 136-145 [facility] Comment on above: Order Comment: Speci men hemolyzed. Notified [employer]Votecey @12/13/2024 09:23:59 EDT BP Performed By: #### A ELY REYES, BMP, MG, GFR, ADIFF, DIMER, CBC, PBNP, TROPHS #### [place] [id number] [place], [place] [address] Urea nitrogen [Mass/Vol] 21 mg/dL High 12-13 [facility] Comment on above: Order Comment: Speci men hemolyzed. Notified Damon @12/13/2024 09:23:59 EDT BP Performed By: #### A ELY REYES, BMP, MG, GFR, ADIFF, DIMER, CBC, PBNP, TROPHS #### [facility] [address] [place], [place] [address] LABORATORYOrdered By: SYSTEM SYSTEM on 12-13-2024 Calcium [Mass/Vol] 8.8 mg/dL Normal 8.4 - 10. 2 mg/dL AO ADM SS Chloride [Moles/Vol] 102 mmol/L Normal 98 - 10 7 mmol/L AO ADM SS CO2 [Moles/Vol] 32 mmol/L High 22 - 29 mmol/L AO ADM SS Creatinine [Mass/Vol] 0.73 mg/dL Normal 0.67 - 1.17 mg/dL AO ADM SS Electrolyte Balance 4.0 mEq/L Normal 4.0 - 15 .0 mEq/L AO ADM SS Estimated Glomerular Filtration Rate 109 ml/min/1.73sqm Invalid Interpretation Code AO Chemistry [...] to calculate the eGFR results. Glucose [Mass/Vol] 137 mg/dL High 70 - 105 mg/dL AO ADM SS Magnesium [Mass/Vol] 1.7 mg/dL Low 1.8 - 2 .4 mg/dL AO ADM SS Potassium [Moles/Vol] 3.9 mmol/L Normal 3.5 - 5.1 mmol/L AO ADM SS Sodium [Moles/Vol] 138 mmol/L Normal 136 - 145 mmol/L AO ADM SS Urea nitrogen [Mass/Vol] 21 mg/dL High 7 - 18 mg/dL AO ADM SS Urea nitrogen/Creatinine [Mass ratio] 29 ratio High 7 - 27 ratio AO ADM SS MGon 12-13-2024 Magnesium [Mass/Vol] 1.7 mg/dL Low 1.8-2.4 [facility] Comment on above: Performed By: #### A ELY REYES, BMP, MG, GFR, ADIFF, DIMER, CBC, PBNP, TROPHS #### [address] [address] .GFRon 12-12-2024 Estimated Glomerular Filtration Rate 111 ml/min/1.73sqm Normal [facility] Comment on above: Result Comment: Stages of [...] the eGFR results. Performed By: #### A ELY REYES, BMP, MG, GFR, ADIFF, DIMER, CBC, PBNP, TROPHS #### [address] [address] BMPon 12-12-2024 BUN/Creatinine Ratio 22 ratio Normal 7-27 [facility] Comment on above: Performed By: #### A ELY REYES, BMP, MG, GFR, ADIFF, DIMER, CBC, PBNP, TROPHS #### [id number] [place], [place] [address] Calcium [Mass/Vol] 9.2 mg/dL Normal 8.4-10.2 [facility] Comment on above: Performed By: #### A ELY REYES, JULIÁN, MG, GFR, ADIFF, DIMER, CBC, PBNP, TROPHS #### [address] [address] Chloride [Moles/Vol] 103 mmol/L Normal 98-107 [facility] Comment on above: Performed By: #### A ELY REYES, BMP, MG, GFR, ADIFF, DIMER, CBC, PBNP, TROPHS #### [address] [address] CO2 [Moles/Vol] 32 mmol/L High 22-29 [facility] Comment on above: Performed By: #### A ELY REYES, BMP, MG, GFR, ADIFF, DIMER, CBC, PBNP, TROPHS #### [address] [address] Creatinine [Mass/Vol] 0.69 mg/dL Normal 0.67-1.17 [facility] Comment on above: Performed By: #### A ELY REYES, JULIÁN, MG, GFR, ADIFF, DIMER, CBC, PBNP, TROPHS #### [address] [address] Electrolyte Balance 7.0 mEq/L Normal 4.0-15.0 [facility] Comment on above: Performed By: #### A ELY REYES, JULIÁN, MG, GFR, ADIFF, DIMER, CBC, PBNP, TROPHS #### [address] [address] Glucose [Mass/Vol] 115 mg/dL High 70-105 [facility] Comment on above: Performed By: #### A ELY REYES, JULIÁN, MG, GFR, ADIFF, DIMER, CBC, PBNP, TROPHS #### [address] [address] Potassium [Moles/Vol] 3.8 mmol/L Normal 3.5-5.1 [facility] Comment on above: Performed By: #### A ELY REYES, BMP, MG, GFR, ADIFF, DIMER, CBC, PBNP, TROPHS #### [place] [place] [place], [place] [address] Sodium [Moles/Vol] 142 mmol/L Normal 136-145 [facility] Comment on above: Performed By: #### A ELY REYES, BMP, MG, GFR, ADIFF, DIMER, CBC, PBNP, TROPHS #### [place] [place], [place] [address] Urea nitrogen [Mass/Vol] 15 mg/dL Normal 7-18 [facility] Comment on above: Performed By: #### A ELY REYES, BMP, MG, GFR, ADIFF, DIMER, CBC, PBNP, TROPHS #### [id number] [place], [place] [address] LABORATORYOrdered By: SYSTEM SYSTEM on 12-12-2024 Calcium [Mass/Vol] 9.2 mg/dL Normal 8.4 - 10. 2 mg/dL AO ADM SS Chloride [Moles/Vol] 103 mmol/L Normal 98 - 10 7 mmol/L AO ADM SS CO2 [Moles/Vol] 32 mmol/L High 22 - 29 mmol/L AO ADM SS Creatinine [Mass/Vol] 0.69 mg/dL Normal 0.67 - 1.17 mg/dL AO ADM SS Electrolyte Balance 7.0 mEq/L Normal 4.0 - 15 .0 mEq/L AO ADM SS Estimated Glomerular Filtration Rate 111 ml/min/1.73sqm Invalid Interpretation Code AO Chemistry S [...] Glucose [Mass/Vol] 115 mg/dL High 70 - 105 mg/dL AO ADM SS Magnesium [Mass/Vol] 2.0 mg/dL Normal 1.8 - 2 .4 mg/dL AO ADM SS Potassium [Moles/Vol] 3.8 mmol/L Normal 3.5 - 5.1 mmol/L AO ADM SS Sodium [Moles/Vol] 142 mmol/L Normal 136 - 145 mmol/L AO ADM SS Troponin I.cardiac DL <= 0.01 ng/mL [Mass/Vol] 12 ng/L Normal 0 - 76 ng/L AO ADM SS Comment on above: Interpretive Data: H igh Sensitive Troponin I Reference Ranges: Female: 0-51 ng/L Male: 0-76 ng/L Testing performed on [employer] using a homogeneous sandwich chemiluminescent immunoassay based on [employer] technology. Urea nitrogen [Mass/Vol] 15 mg/dL Normal 7 - 18 mg/dL AO ADM SS Urea nitrogen/Creatinine [Mass ratio] 22 ratio Normal 7 - 27 ratio AO ADM SS MGon 12-12-2024 Magnesium [Mass/Vol] 2.0 mg/dL Normal 1.8-2.4 [facility] Comment on above: Performed By: #### A ELY REYES, BMP, MG, GFR, ADIFF, DIMER, CBC, PBNP, TROPHS #### [address] [address] [facility] 12-12-2024 High Sensitivity Troponin I 12 ng/L Normal 0-76 [facility] Comment on above: Result Comment: High Sensitive Troponin I Reference Ranges: Female: 0-51 ng/L Male: 0-76 ng/L Testing performed on [employer] using a homogeneous sandwich chemiluminescent immunoassay based on [employer] technology. Performed By: #### A ELY REYES, JULIÁN, MG, GFR, ADIFF, DIMER, CBC, PBNP, TROPHS #### [address] [address] XR CHEST 1 VIEWon 12-12-2024 XR CHEST 1 VIEW ORIGINAL EXAMINATION: ONE XRAY VIEW OF THE CHEST12/12/2024 5:56 am COMPARISON: 12/11/2024 HISTORY: ORDERING SYSTEM PROVIDED HISTORY: Reason for Exam: Cough FINDINGS: Stable cardiomegaly. Interval mild vascular congestion. No large pleural effusion or pneumothorax. IMPRESSION: Interval mild vascular congestion with stable cardiomegaly. I have personally reviewed the images of this examination and agree with the resident's findings and interpretation. Interpreted by: Mick Leggett MD Preliminary Report By: Jordon Levin Electronically signed By Mick Leggett MD Dictated Date: 12/12/2024 6:08:15 AM Prelim Date: 12/12/2024 6:09:53 AM Sign Date: 12/12/2024 6:38:29 AM Ordering Provider: VENITA BROTHERS Normal [facility] .Auto Diffon 12-11-2024 Basophil, Absolute 0.0 10 3/mcL Normal 0.0-0.3 [facility] Comment on above: Performed By: #### A ELY REYES, BMP, MG, GFR, ADIFF, DIMER, CBC, PBNP, TROPHS #### [address] [address] Basophils/100 WBC (Bld) 0.5 % Normal 0.0-2.5 [facility] Comment on above: Performed By: #### A ELY REYES, BMP, MG, GFR, ADIFF, DIMER, CBC, PBNP, TROPHS #### [address] [address] Eosinophil, Absolute 0.1 10 3/mcL Normal 0.0-0.7 [facility] Comment on above: Performed By: #### A ELY REYES, BMP, MG, GFR, ADIFF, DIMER, CBC, PBNP, TROPHS #### [address] [address] Eosinophils/100 WBC (Bld) 1.3 % Normal 0.0-6.0 [facility] Comment on above: Performed By: #### A EYL REYES, BMP, MG, GFR, ADIFF, DIMER, CBC, PBNP, TROPHS #### [address] [address] Lymphocyte, Absolute 0.8 10 3/mcL Low 0.9-4.3 [facility] Comment on above: Performed By: #### A ERIC, MDW, BMP, MG, GFR, ADIFF, DIMER, CBC, PBNP, TROPHS #### [address] [address] Lymphocytes/100 WBC (Bld) 9.5 % Low 20.0-40.0 [facility] Comment on above: Performed By: #### A ERIC, W, BMP, MG, GFR, ADIFF, DIMER, CBC, PBNP, TROPHS #### [address] [address] Monocyte, Absolute 0.9 10 3/mcL Normal 0.1-1.4 [facility] Comment on above: Performed By: #### A ERIC, W, BMP, MG, GFR, ADIFF, DIMER, CBC, PBNP, TROPHS #### [address] [address] Monocytes/100 WBC (Bld) 10.0 % Normal 2.0-13.0 [facility] Comment on above: Performed By: #### A ERIC, W, BMP, MG, GFR, ADIFF, DIMER, CBC, PBNP, TROPHS #### [address] [address] Neutrophils/100 WBC (Bld) 78.7 % High 50.0-75.0 [facility] Comment on above: Performed By: #### A MD ERICW, BMP, MG, GFR, ADIFF, DIMER, CBC, PBNP, TROPHS #### [address] [address] .GFRon 12-11-2024 Estimated Glomerular Filtration Rate 105 ml/min/1.73sqm Normal [facility] Comment on above: Result Comment: Stages of [...] the eGFR results. Performed By: #### A ELY REYES, BMP, MG, GFR, ADIFF, DIMER, CBC, PBNP, TROPHS #### [place] [id number] .MDWon 12-11-2024 Monocyte Distribution Width 18.16 Normal 0.00-20.00 [facility] Comment on above: Result Comment: For ED adult patients suspected of sepsis, MDW<=20.0 does not rule out sepsis or risk of sepsis Performed By: #### A ELY REYES, BMP, MG, GFR, ADIFF, DIMER, CBC, PBNP, TROPHS #### [place] [address] .NEUABSon 12-11-2024 Neutrophil, Absolute 6.9 10 3/mcL Normal 2.3-8.1 [facility] Comment on above: Performed By: #### A ELY REYES, BMP, MG, GFR, ADIFF, DIMER, CBC, PBNP, TROPHS #### [place] [address] CBCon 12-11-2024 Erythrocyte distribution width (RBC) [Ratio] 14.9 % Normal 11.5-15.5 [facility] Comment on above: Performed By: #### A ELY REYES, BMP, MG, GFR, ADIFF, DIMER, CBC, PBNP, TROPHS #### [place] [address] Hematocrit (Bld) [Volume fraction] 43.0 % Normal 40.0-52.0 [facility] Comment on above: Performed By: #### A ELY REYES, BMP, MG, GFR, ADIFF, DIMER, CBC, PBNP, TROPHS #### [place] [address] Hgb 14.0 G/dL Normal 13.0-17.5 [facility] Comment on above: Performed By: #### A ELY REYES, BMP, MG, GFR, ADIFF, DIMER, CBC, PBNP, TROPHS #### [address] [address] MCH (RBC) [Entitic mass] 28.2 pg Normal 27.0-33.0 [facility] Comment on above: Performed By: #### A ELY REYES, BMP, MG, GFR, ADIFF, DIMER, CBC, PBNP, TROPHS #### [address] [address] MCHC 32.7 G/dL Normal 32.0-36.0 [facility] Comment on above: Performed By: #### A ELY REYES, BMP, MG, GFR, ADIFF, DIMER, CBC, PBNP, TROPHS #### [address] [address] MCV (RBC) [Entitic vol] 86.1 fL Normal 81.0-100.0 [facility] Comment on above: Performed By: #### A ELY REYES, BMP, MG, GFR, ADIFF, DIMER, CBC, PBNP, TROPHS #### [place] [address] Platelet 208 10 3/mcL Normal 150-450 [facility] Comment on above: Performed By: #### A ELY REYES, BMP, MG, GFR, ADIFF, DIMER, CBC, PBNP, TROPHS #### [place] [address] Platelet mean volume (Bld) [Entitic vol] 7.9 fL Normal 6.4-10.5 [facility] Comment on above: Performed By: #### A ELY REYES, BMP, MG, GFR, ADIFF, DIMER, CBC, PBNP, TROPHS #### [place] [address] RBC 4.99 10 6/mcL Normal 4.50-6.00 [facility] Comment on above: Performed By: #### A ELY REYES, BMP, MG, GFR, ADIFF, DIMER, CBC, PBNP, TROPHS #### [address] [address] WBC 8.8 10 3/mcL Normal 4.5-10.8 [facility] Comment on above: Performed By: #### A ELY REYES, BMP, MG, GFR, ADIFF, DIMER, CBC, PBNP, TROPHS #### [address] [address] CMPon 12-11-2024 Albumin Level 2.8 G/dL Low 3.5-5.0 [facility] Comment on above: Performed By: #### A ELY REYES, BMP, MG, GFR, ADIFF, DIMER, CBC, PBNP, TROPHS #### [place] [address] Albumin/Globulin [Mass ratio] 0.6 {ratio} Low 1.1-2.5 [facility] Comment on above: Performed By: #### A ELY REYES, BMP, MG, GFR, ADIFF, DIMER, CBC, PBNP, TROPHS #### [address] [address] ALP [Catalytic activity/Vol] 100 U/L Normal 40-135 [facility] Comment on above: Performed By: #### A ELY REYES, BMP, MG, GFR, ADIFF, DIMER, CBC, PBNP, TROPHS #### [address] [address] ALT [Catalytic activity/Vol] 18 U/L Normal 16-63 [facility] Comment on above: Performed By: #### A ELY REYES, BMP, MG, GFR, ADIFF, DIMER, CBC, PBNP, TROPHS #### [place] [address] AST [Catalytic activity/Vol] 8 U/L Low 10-40 [facility] Comment on above: Performed By: #### A ELY REYES, BMP, MG, GFR, ADIFF, DIMER, CBC, PBNP, TROPHS #### [place] [id number] Bili Total 0.3 mg/dL Normal 0.2-1.0 [facility] Comment on above: Result Comment: Use of this assay is not recommended for patients undergoing treatment with eltrombopag due to the potential for falsely elevated results. Performed By: #### A ELY REYES, BMP, MG, GFR, ADIFF, DIMER, CBC, PBNP, TROPHS #### [place] [address] BUN/Creatinine Ratio 12 ratio Normal 7-27 [facility] Comment on above: Performed By: #### A ELY REYES, BMP, MG, GFR, ADIFF, DIMER, CBC, PBNP, TROPHS #### [place] [address] Calcium [Mass/Vol] 8.9 mg/dL Normal 8.4-10.2 [facility] Comment on above: Performed By: #### A ELY REYES, BMP, MG, GFR, ADIFF, DIMER, CBC, PBNP, TROPHS #### [place] [address] Chloride [Moles/Vol] 98 mmol/L Normal 98-107 [facility] Comment on above: Performed By: #### A ELY REYES, BMP, MG, GFR, ADIFF, DIMER, CBC, PBNP, TROPHS #### [place] [address] CO2 [Moles/Vol] 32 mmol/L High 22-29 [facility] Comment on above: Performed By: #### A ELY REYES, BMP, MG, GFR, ADIFF, DIMER, CBC, PBNP, TROPHS #### [place] [address] Creatinine [Mass/Vol] 0.82 mg/dL Normal 0.67-1.17 [facility] Comment on above: Performed By: #### A ELY REYES, BMP, MG, GFR, ADIFF, DIMER, CBC, PBNP, TROPHS #### [place] [id number] Electrolyte Balance 4.0 mEq/L Normal 4.0-15.0 [facility] Comment on above: Performed By: #### A ELY REYES, BMP, MG, GFR, ADIFF, DIMER, CBC, PBNP, TROPHS #### [address] [address] Globulin 4.6 G/dL High 2.7-4.4 [facility] Comment on above: Performed By: #### A ELY REYES, BMP, MG, GFR, ADIFF, DIMER, CBC, PBNP, TROPHS #### [address] [address] Glucose [Mass/Vol] 165 mg/dL High 70-105 [facility] Comment on above: Performed By: #### A ELY REYES, BMP, MG, GFR, ADIFF, DIMER, CBC, PBNP, TROPHS #### [address] [address] Potassium [Moles/Vol] 3.6 mmol/L Normal 3.5-5.1 [facility] Comment on above: Performed By: #### A ELY REYES, JULIÁN, MG, GFR, ADIFF, DIMER, CBC, PBNP, TROPHS #### [address] [address] Sodium [Moles/Vol] 134 mmol/L Low 136-145 [facility] Comment on above: Performed By: #### A ELY REYES, BMP, MG, GFR, ADIFF, DIMER, CBC, PBNP, TROPHS #### [address] [address] Total Protein 7.4 G/dL Normal 6.4-8.2 [facility] Comment on above: Performed By: #### A ELY REYES, BMP, MG, GFR, ADIFF, DIMER, CBC, PBNP, TROPHS #### [address] [address] Urea nitrogen [Mass/Vol] 10 mg/dL Normal 7-18 [facility] Comment on above: Performed By: #### A ERIC, MDW, BMP, MG, GFR, ADIFF, DIMER, CBC, PBNP, TROPHS #### [facility] [address] [place], [place] [address] CT ANGIOGRAPHY CHEST W/CONTR [place] 12-11-2024 CT ANGIOGRAPHY CHEST W/CONTRAST ORIGINAL EXAMINATION: CTA OF THE CHEST 12/11/2024 2:39 am TECHNIQUE: CTA of the chest was performed after the administration of intravenous contrast. Multiplanar reformatted images are provided for review. MIP images are provided for review. Automated exposure control, iterative reconstruction, and/or weight based adjustment of the mA/kV was utilized to reduce the radiation dose to as low as reasonably achievable. COMPARISON: CT chest 11/24/2024 HISTORY: ORDERING SYSTEM PROVIDED HISTORY: Reason for Exam: Pulmonary embolism (PE) suspected, low to intermediate prob, positive D-dimer FINDINGS: Pulmonary Arteries: Pulmonary arteries are suboptimally opacified for evaluation. No evidence of intraluminal filling defect to suggest pulmonary embolism to the level of segmental pulmonary arteries. Main pulmonary artery is dilated measuring 3.6 cm.. Mediastinum: No evidence of mediastinal lymphadenopathy.Cardi omegaly. No significant pericardial effusion. Nonaneurysmal thoracic aorta. Lungs/pleura: Bibasilar atelectasis.. No focal consolidation or pulmonary edema. No evidence of pleural effusion or pneumothorax. Upper Abdomen: Cirrhotic appearance of liver and splenomegaly. Soft Tissues/Bones: No acute bone or soft tissue abnormality. Degenerative changes of the spine. Gynecomastia IMPRESSION: No evidence of pulmonary embolism to the level of segmental pulmonary arteries. Stable cardiomegaly. Pulmonary artery dilatation can be seen with pulmonary hypertension. Cirrhotic liver and splenomegaly. I have personally reviewed the images of this examination and agree with the resident's findings and interpretation. Interpreted by: Mick Leggett MD Preliminary Report By: Jordon Levin Electronically signed By Mick Leggett MD Dictated Date: 12/11/2024 2:42:05 AM Prelim Date: 12/11/2024 2:45:49 AM Sign Date: 12/11/2024 3:29:36 AM Ordering Provider: DELORES MURO Normal [facility] DIMERon 12-11-2024 D-Dimer 593 ng/mL D-DU High 0-230 [facility] Comment on above: Result Comment: The result of the D-Dimer test should be evaluated in the context of all the clinical and laboratory data available. In those instances where the laboratory result does not agree with the clinical evaluation, additional tests should be performed accordingly. If the D-Dimer result is used to exclude DVT or PE, the recommended cutoff value is less than 230 ng/mL. The D-Dimer result should not be used alone to rule in DVT/PE, but should be used in conjunction with a clinical pretest probability (PTP)assessment model to exclude venous thromboembolism (VTE) in patients suspected of deep venous thrombosis (DVT) and pulmonary embolism (PE). Performed By: #### A ERIC, MDW, BMP, MG, GFR, ADIFF, DIMER, CBC, PBNP, TROPHS #### [id number] [place], [place] [address] LABORATORYOrdered By: SYSTEM SYSTEM on 12-11-2024 Troponin I.cardiac DL <= 0.01 ng/mL [Mass/Vol] 10 ng/L Normal 0 - 76 ng/L AO ADM SS Comment on above: Interpretive Data: H igh Sensitive Troponin I Reference Ranges: Female: 0-51 ng/L Male: 0-76 ng/L Testing performed on [employer] using a homogeneous sandwich chemiluminescent immunoassay based on [employer] technology. Albumin BCP dye [Mass/Vol] 2.8 G/dL Low 3.5 - 5.0 G/dL AO ADM SS Albumin/Globulin [Mass ratio] 0.6 {ratio} Low 1.1 - 2.5 ratio AO ADM SS ALP [Catalytic activity/Vol] 100 U/L Normal 40 - 135 U/L AO ADM SS ALT With P-5'-P [Catalytic activity/Vol] 18 U/L Normal 16 - 63 U/L AO ADM SS AST With P-5'-P [Catalytic activity/Vol] 8 U/L Low 10 - 40 U/L AO ADM SS Basophils (Bld) [#/Vol] 0.0 103/mcL Normal 0.0 - 0.3 10^3/mcL AO Workflow SS Basophils/100 WBC (Bld) 0.5 % Normal 0.0 - 2.5 % AO Workflow SS Bilirubin [Mass/Vol] 0.3 mg/dL Normal 0.2 - 1 .0 mg/dL AO ADM SS Comment on above: Interpretive Data: U se of this assay is not recommended for patients undergoing treatment with eltrombopag due to the potential for falsely elevated results. Calcium [Mass/Vol] 8.9 mg/dL Normal 8.4 - 10. 2 mg/dL AO ADM SS Chloride [Moles/Vol] 98 mmol/L Normal 98 - 10 7 mmol/L AO ADM SS CO2 [Moles/Vol] 32 mmol/L High 22 - 29 mmol/L AO ADM SS Creatinine [Mass/Vol] 0.82 mg/dL Normal 0.67 - 1.17 mg/dL AO ADM SS Electrolyte Balance 4.0 mEq/L Normal 4.0 - 15 .0 mEq/L AO ADM SS Eosinophil, Absolute 0.1 103/mcL Normal 0.0 - 0 .7 10^3/mcL AO Workflow SS Eosinophils/100 WBC (Bld) 1.3 % Normal 0.0 - 6.0 % AO Workflow SS Erythrocyte distribution width (RBC) [Ratio] 14.9 % Normal 11.5 - 15.5 % AO Workflow SS Estimated Glomerular Filtration Rate 105 ml/min/1.73sqm Invalid Interpretation Code AO Chemistry [...] factor to calculate the eGFR results. Globulin 4.6 G/dL High 2.7 - 4.4 G/dL AO ADM SS Glucose [Mass/Vol] 165 mg/dL High 70 - 105 mg/dL AO ADM SS Hematocrit (Bld) [Volume fraction] 43.0 % Normal 40.0 - 52.0 % AO Workflow SS Hemoglobin (Bld) [Mass/Vol] 14.0 G/dL Normal 13.0 - 17.5 G/dL AO Workflow SS Lipase [Catalytic activity/Vol] 15 U/L Low 16 - 77 U/L AO ADM SS Lymphocytes (Bld) [#/Vol] 0.8 103/mcL Low 0.9 - 4.3 10^3/mcL AO Workflow SS Lymphocytes/100 WBC (Bld) 9.5 % Low 20.0 - 40.0 % AO Workflow SS MCH (RBC) [Entitic mass] 28.2 pg Normal 27.0 - 33.0 pg AO Workflow SS MCHC 32.7 G/dL Normal 32.0 - 36.0 G/dL AO Workflow SS MCV (RBC) [Entitic vol] 86.1 fL Normal 81.0 - 100.0 fL AO Workflow SS Monocyte distribution width Auto (Bld) [Entitic vol] 18.16 1 Normal 0.00 - 20.00 AO Workflow SS Comment on above: Result Comment: For ED adult patients suspected of sepsis, MDW<=20.0 does not rule out sepsis or risk of sepsis Monocytes (Bld) [#/Vol] 0.9 103/mcL Normal 0.1 - 1.4 10^3/mcL AO Workflow SS Monocytes/100 WBC (Bld) 10.0 % Normal 2.0 - 13.0 % AO Workflow SS Natriuretic peptide.B prohormone N-Terminal [Mass/Vol] 1099 pg/mL High 0 - 125 pg/mL AO ADM SS Comment on above: Interpretive Data: N T-proBNP results of less than 300 pg/mL effectively rules out acute congestive heart failure with 99% negative predictive value. Neutrophils (Bld) [#/Vol] 6.9 103/mcL Normal 2.3 - 8.1 10^3/mcL AO Workflow SS Neutrophils/100 WBC (Bld) 78.7 % High 50.0 - 75.0 % AO Workflow SS Platelet mean volume (Bld) [Entitic vol] 7.9 fL Normal 6.4 - 10.5 fL AO Workflow SS Platelets (Bld) [#/Vol] 208 103/mcL Normal 150 - 450 10^3/mcL AO Workflow SS Potassium [Moles/Vol] 3.6 mmol/L Normal 3.5 - 5.1 mmol/L AO ADM SS Protein [Mass/Vol] 7.4 G/dL Normal 6.4 - 8.2 G/dL AO ADM SS RBC (Bld) [#/Vol] 4.99 106/mcL Normal 4.50 - 6.0 0 10^6/mcL AO Workflow SS Sodium [Moles/Vol] 134 mmol/L Low 136 - 145 mmol/L AO ADM SS Troponin I.cardiac DL <= 0.01 ng/mL [Mass/Vol] 10 ng/L Normal 0 - 76 ng/L AO ADM SS Comment on above: Interpretive Data: H igh Sensitive Troponin I Reference Ranges: Female: 0-51 ng/L Male: 0-76 ng/L Testing performed on [employer] using a homogeneous sandwich chemiluminescent immunoassay based on [employer] technology. Urea nitrogen [Mass/Vol] 10 mg/dL Normal 7 - 18 mg/dL AO ADM SS Urea nitrogen/Creatinine [Mass ratio] 12 ratio Normal 7 - 27 ratio AO ADM SS WBC (Bld) [#/Vol] 8.8 103/mcL Normal 4.5 - 10.8 10^3/mcL AO Workflow SS LABORATORYOrdered By: Jil Morales on 12-11-2024 D-Dimer 593 ng/mL D-DU High 0 - 230 ng/mL D-DU AO Coagulation S Comment on above: Interpretive Data: T he result of the D-Dimer test should be evaluated in the context of all the clinical and laboratory data available. In those instances where the laboratory result does not agree with the clinical evaluation, additional tests should be performed accordingly. If the D-Dimer result is used to exclude DVT or PE, the recommended cutoff value is less than 230 ng/mL. The D-Dimer result should not be used alone to rule in DVT/PE, but should be used in conjunction with a clinical pretest probability (PTP)assessment model to exclude venous thromboembolism (VTE) in patients suspected of deep venous thrombosis (DVT) and pulmonary embolism (PE). LIPon 12-11-2024 Lipase Level 15 U/L Low 16-77 [facility] Comment on above: Performed By: #### A ERIC, MDW, BMP, MG, GFR, ADIFF, DIMER, CBC, PBNP, TROPHS #### [facility] [address] [place], [place] [address] No Panel Informationon 12-11 Legionella Urine Ag Presumptive negative for L. pneumophila serogroup 1 antigen in urine, suggesting no recent or current infection. Legionnaire's disease cannot be ruled out since other serogroups and species may also cause disease. [facility] Streptococcus Pneumoniae Urine Antig Presumptive negative for pneumococcal pneumonia, suggesting no current or recent pneumococcal infection. Infection due to Strep pneumoniae cannot be ruled out since the antigen present in the sample may be below the detection limit of the test. [facility] Comment on above: This test has not be en evaluated on patients taking antibiotics for greater than 24 hours or on patients who have recently completed an antibiotic regimen. The accuracy of this test has not been proven in young children. PBNPon 12-11-2024 Natriuretic peptide B (Bld) [Mass/Vol] 1099 pg/mL High 0-125 [facility] Comment on above: Result Comment: NT-p roBNP results of less than 300 pg/mL effectively rules out acute congestive heart failure with 99% negative predictive value. Performed By: #### A ELY REYES, JULIÁN, MG, GFR, ADIFF, DIMER, CBC, PBNP, TROPHS #### [address] [address] [facility] High Sensitivity Troponin I 10 ng/L Normal 0-76 [facility] Comment on above: Result Comment: High Sensitive Troponin I Reference Ranges: Female: 0-51 ng/L Male: 0-76 ng/L Testing performed on [employer] using a homogeneous sandwich chemiluminescent immunoassay based on [employer] technology. Performed By: #### A ELY REYES, JULIÁN, MG, GFR, ADIFF, DIMER, CBC, PBNP, TROPHS #### [id number] [place], [place] [address] High Sensitivity Troponin I 10 ng/L Normal 0-76 [facility] Comment on above: Result Comment: High Sensitive Troponin I Reference Ranges: Female: 0-51 ng/L Male: 0-76 ng/L Testing performed on [employer] using a homogeneous sandwich chemiluminescent immunoassay based on [employer] technology. Performed By: #### A ELY REYES, BMP, MG, GFR, ADIFF, DIMER, CBC, PBNP, TROPHS #### [id number] [place], [place] [address] XR CHEST 1 VIEWon 12-11-2024 XR CHEST 1 VIEW ORIGINAL EXAMINATION: ONE XRAY VIEW OF THE CHEST12/11/2024 12:31 am COMPARISON: 11/24/2024 HISTORY: ORDERING SYSTEM PROVIDED HISTORY: Reason for Exam: cough, sob FINDINGS: The cardiomediastinal contours are stable, mild to moderate cardiomegaly.Low lung volumes with hypoventilatory changes. No focal consolidation, large pleural effusion or pneumothorax. Stable osseous structures IMPRESSION: Low lung volumes with hypoventilatory changes. Mild to moderate cardiomegaly. No focal consolidation. Preliminary Report was Dictated by a Resident Interpreted by: Mick Leggett MD Preliminary Report By: Jordon Levin Electronically signed By Mick Leggett MD Dictated Date: 12/11/2024 12:36:36 AM Prelim Date: 12/11/2024 12:37:27 AM Sign Date: 12/11/2024 1:19:48 AM Ordering Provider: DELORES Kate [facility] .Auto Diffon 11-28-2024 Basophil, Absolute 0.0 10 3/mcL Normal 0.0-0.3 [facility] Comment on above: Performed By: #### A ERIC, CBC, BMP, ADIFF, GFR #### [address] [address] Basophils/100 WBC (Bld) 0.8 % Normal 0.0-2.5 [facility] Comment on above: Performed By: #### A ERIC, CBC, BMP, ADIFF, GFR #### [address] [address] Eosinophil, Absolute 0.1 10 3/mcL Normal 0.0-0.[address] [facility] Comment on above: Performed By: #### A ERIC, CBC, BMP, ADIFF, GFR #### [address] [address] Eosinophils/100 WBC (Bld) 1.7 % Normal 0.0-6.0 [facility] Comment on above: Performed By: #### A ERIC, CBC, BMP, ADIFF, GFR #### [address] [address] Lymphocyte, Absolute 0.9 10 3/mcL Normal 0.9-4.[address] [facility] Comment on above: Performed By: #### A ERIC, CBC, BMP, ADIFF, GFR #### [address] [address] Lymphocytes/100 WBC (Bld) 15.5 % Low 20.0-40.0 [facility] Comment on above: Performed By: #### A ERIC, CBC, BMP, ADIFF, GFR #### [address] [address] Monocyte, Absolute 0.6 10 3/mcL Normal 0.1-1.4 [facility] Comment on above: Performed By: #### A ERIC, CBC, BMP, ADIFF, GFR #### [address] [address] Monocytes/100 WBC (Bld) 11.2 % Normal 2.0-13.0 [facility] Comment on above: Performed By: #### A ERIC, CBC, BMP, ADIFF, GFR #### [address] [address] Neutrophils/100 WBC (Bld) 70.8 % Normal 50.0-75.0 [facility] Comment on above: Performed By: #### A ERIC, CBC, BMP, ADIFF, GFR #### [address] [address] .GFRon 11-28-2024 Estimated Glomerular Filtration Rate 107 ml/min/1.73sqm Normal [facility] Comment on above: Result Comment: [...] eGFR results. Performed By: #### A ERIC, CBC, BMP, ADIFF, GFR #### [address] [address] .NEUABSon 11-28-2024 Neutrophil, Absolute 4.1 10 3/mcL Normal 2.3-8.[address] [facility] Comment on above: Performed By: #### A ERIC, CBC, BMP, ADIFF, GFR #### [address] [address] BMPon 11-28-2024 BUN/Creatinine Ratio 11.7 ratio Normal 10.0-22.0 [facility] Comment on above: Performed By: #### A ERIC, CBC, BMP, ADIFF, GFR #### [place] [address] Calcium [Mass/Vol] 9.2 mg/dL Normal 8.7-10.4 [facility] Comment on above: Performed By: #### A ERIC, CBC, BMP, ADIFF, GFR #### [place] [address] Chloride [Moles/Vol] 101 mmol/L Normal 98-110 [facility] Comment on above: Performed By: #### A ERIC, CBC, BMP, ADIFF, GFR #### [place] [address] CO2 [Moles/Vol] 31 mmol/L Normal 22-32 [facility] Comment on above: Performed By: #### A ERIC, CBC, BMP, ADIFF, GFR #### [place] [address] Creatinine [Mass/Vol] 0.77 mg/dL Normal 0.60-1.40 [facility] Comment on above: Result Comment: Test ing performed on [employer] analyzer using enzymatic creatinine methodology. Performed By: #### A ERIC, CBC, BMP, ADIFF, GFR #### [place] [address] Electrolyte Balance 5.0 mEq/L Normal 4.0-15.0 [facility] Comment on above: Performed By: #### A ERIC, CBC, BMP, ADIFF, GFR #### [address] [address] Glucose [Mass/Vol] 100 mg/dL Normal 70-110 [facility] Comment on above: Performed By: #### A ERIC, CBC, BMP, ADIFF, GFR #### [address] [address] Potassium [Moles/Vol] 4.0 mmol/L Normal 3.5-5.0 [facility] Comment on above: Performed By: #### A ERIC, CBC, BMP, ADIFF, GFR #### [address] [address] Sodium [Moles/Vol] 137 mmol/L Normal 136-145 [facility] Comment on above: Performed By: #### A ERIC, CBC, BMP, ADIFF, GFR #### [place] [id number] Urea nitrogen [Mass/Vol] 9.0 mg/dL Normal 8.0-22.0 [facility] Comment on above: Performed By: #### A ERIC, CBC, BMP, ADIFF, GFR #### [address] [address] CBCon 11-28-2024 Erythrocyte distribution width (RBC) [Ratio] 15.1 % Normal 11.5-15.5 [facility] Comment on above: Performed By: #### A ERIC, CBC, BMP, ADIFF, GFR #### [address] [address] Hematocrit (Bld) [Volume fraction] 42.1 % Normal 40.0-52.0 [facility] Comment on above: Performed By: #### A ERIC, CBC, BMP, ADIFF, GFR #### [address] [address] Hgb 13.8 G/dL Normal 13.0-17.5 [facility] Comment on above: Performed By: #### A ERIC, CBC, BMP, ADIFF, GFR #### [address] [address] MCH (RBC) [Entitic mass] 29.0 pg Normal 27.0-33.0 [facility] Comment on above: Performed By: #### A ERIC, CBC, BMP, ADIFF, GFR #### [address] [address] MCHC 32.8 G/dL Normal 32.0-36.0 [facility] Comment on above: Performed By: #### A ERIC, CBC, BMP, ADIFF, GFR #### [address] [address] MCV (RBC) [Entitic vol] 88.3 fL Normal 81.0-100.0 [facility] Comment on above: Performed By: #### A ERIC, CBC, BMP, ADIFF, GFR #### [place] [id number] Platelet 195 10 3/mcL Normal 150-450 [facility] Comment on above: Performed By: #### A ERIC, CBC, BMP, ADIFF, GFR #### [place] [address] Platelet mean volume (Bld) [Entitic vol] 8.4 fL Normal 6.4-10.5 [facility] Comment on above: Performed By: #### A ERIC, CBC, BMP, ADIFF, GFR #### [place] [address] RBC 4.77 10 6/mcL Normal 4.50-6.00 [facility] Comment on above: Performed By: #### A ERIC, CBC, BMP, ADIFF, GFR #### [place] [id number] WBC 5.8 10 3/mcL Normal 4.5-10.8 [facility] Comment on above: Performed By: #### A ERIC, CBC, BMP, ADIFF, GFR #### [place] [address] LABORATORYOrdered By: Moustapha Winslow on 11-28-2024 Blood Glucose Testing Reason Routine (11/28/24 5:00 PM) [facility] Glucose [Mass/Vol] 89 mg/dL Normal 70 - 110 mg/dL [facility] LABORATORYOrdered By: Andrea Mcgarry on 11-28-2024 Blood Glucose Testing Reason Routine (11/28/24 12:01 PM) [facility] Glucose [Mass/Vol] 91 mg/dL Normal 70 - 110 mg/dL [facility] Blood Glucose Testing Reason Routine (11/28/24 8:15 AM) [facility] Glucose [Mass/Vol] 93 mg/dL Normal 70 - 110 mg/dL [facility] LABORATORYOrdered By: SYSTEM SYSTEM on 11-28-2024 Basophils (Bld) [#/Vol] 0.0 103/mcL Normal 0.0 - 0.3 10^3/mcL Workflow SS Basophils/100 WBC (Bld) 0.8 % Normal 0.0 - 2.5 % Workflow SS Calcium [Mass/Vol] 9.2 mg/dL Normal 8.7 - 10. 4 mg/dL ADM SS Chloride [Moles/Vol] 101 mmol/L Normal 98 - 11 0 mEq/L ADM SS CO2 [Moles/Vol] 31 mmol/L Normal 22 - 32 mEq/L ADM SS Creatinine [Mass/Vol] 0.77 mg/dL Normal 0.60 - 1.40 mg/dL ADM SS Comment on above: Interpretive Data: T esting performed on [employer] analyzer using enzymatic creatinine methodology. Electrolyte Balance 5.0 mEq/L Normal 4.0 - 15 .0 mEq/L ADM SS Eosinophils (Bld) [#/Vol] 0.1 103/mcL Normal 0.0 - 0.7 10^3/mcL Workflow SS Eosinophils/100 WBC (Bld) 1.7 % Normal 0.0 - 6.0 % Workflow SS Erythrocyte distribution width (RBC) [Ratio] 15.1 % Normal 11.5 - 15.5 % Workflow SS Estimated Glomerular Filtration Rate 107 ml/min/1.73sqm Invalid Interpretation Code Chemistry S Comment [...] to calculate the eGFR results. Glucose [Mass/Vol] 100 mg/dL Normal 70 - 110 mg/dL AH ADM SS Hematocrit (Bld) [Volume fraction] 42.1 % Normal 40.0 - 52.0 % AH Workflow SS Hemoglobin (Bld) [Mass/Vol] 13.8 G/dL Normal 13.0 - 17.5 G/dL AH Workflow SS Lymphocytes (Bld) [#/Vol] 0.9 103/mcL Normal 0.9 - 4.3 10^3/mcL AH Workflow SS Lymphocytes/100 WBC (Bld) 15.5 % Low 20.0 - 40.0 % AH Workflow SS MCH (RBC) [Entitic mass] 29.0 pg Normal 27.0 - 33.0 pg AH Workflow SS MCHC 32.8 G/dL Normal 32.0 - 36.0 G/dL AH Workflow SS MCV (RBC) [Entitic vol] 88.3 fL Normal 81.0 - 100.0 fL AH Workflow SS Monocytes (Bld) [#/Vol] 0.6 103/mcL Normal 0.1 - 1.4 10^3/mcL AH Workflow SS Monocytes/100 WBC (Bld) 11.2 % Normal 2.0 - 13.0 % AH Workflow SS Neutrophils (Bld) [#/Vol] 4.1 103/mcL Normal 2.3 - 8.1 10^3/mcL AH Workflow SS Neutrophils/100 WBC (Bld) 70.8 % Normal 50.0 - 75.0 % AH Workflow SS Platelet mean volume (Bld) [Entitic vol] 8.4 fL Normal 6.4 - 10.5 fL AH Workflow SS Platelets (Bld) [#/Vol] 195 103/mcL Normal 150 - 450 10^3/mcL AH Workflow SS Potassium [Moles/Vol] 4.0 mmol/L Normal 3.5 - 5.0 mEq/L AH ADM SS RBC (Bld) [#/Vol] 4.77 106/mcL Normal 4.50 - 6.0 0 10^6/mcL Workflow SS Sodium [Moles/Vol] 137 mmol/L Normal 136 - 145 mEq/L ADM SS Urea nitrogen [Mass/Vol] 9.0 mg/dL Normal 8.0 - 22.0 mg/dL ADM SS Urea nitrogen/Creatinine [Mass ratio] 11.7 ratio Normal 10.0 - 22.0 ratio AH ADM SS WBC (Bld) [#/Vol] 5.8 103/mcL Normal 4.5 - 10.8 10^3/mcL Workflow SS LABORATORYOrdered By: Sharyn nuñez on 11-27-2024 Time of Stated Blood Glucose [id number] [facility] .Auto Diffon 11-26-2024 Basophil, Absolute 0.0 10 3/mcL Normal 0.0-0.3 [facility] Comment on above: Performed By: #### TOMASA DIETRICH ABOGEL, CMP #### [address] [address] Basophils/100 WBC (Bld) 0.4 % Normal 0.0-2.5 [facility] Comment on above: Performed By: #### TOMASA DIETRICH ABOGEL, CMP #### [address] [address] Eosinophil, Absolute 0.0 10 3/mcL Normal 0.0-0.[address] [facility] Comment on above: Performed By: #### TOMASA DIETRICH ABOGEL, CMP #### [address] [address] Eosinophils/100 WBC (Bld) 0.7 % Normal 0.0-6.0 [facility] Comment on above: Performed By: #### TOMASA DIETRICH ABOGEL, CMP #### [address] [address] Lymphocyte, Absolute 0.8 10 3/mcL Low 0.9-4.[address] [facility] Comment on above: Performed By: #### TOMASA DIETRICH ABOGEL, CMP #### [address] [address] Lymphocytes/100 WBC (Bld) 12.2 % Low 20.0-40.0 [facility] Comment on above: Performed By: #### TOMASA DIETRICH ABOGEL, CMP #### [address] [address] Monocyte, Absolute 0.7 10 3/mcL Normal 0.1-1.4 [facility] Comment on above: Performed By: #### TOMASA DIETRICH ABOGEL, CMP #### [address] [address] Monocytes/100 WBC (Bld) 11.2 % Normal 2.0-13.0 [facility] Comment on above: Performed By: #### TOMASA DIETRICH ABOGEL, CMP #### [address] [address] Neutrophils/100 WBC (Bld) 75.5 % High 50.0-75.0 [facility] Comment on above: Performed By: #### TOMASA DIETRICH ABOGEL CMP #### [address] [address] .GFRon 11-26-2024 Estimated Glomerular Filtration Rate 103 ml/min/1.73sqm Normal [facility] Comment on above: Result Comment: [...] calculate the eGFR results. Performed By: #### TOMASA DIETRICH ABOGEL, CMP #### [address] [address] .NEUABSon 11-26-2024 Neutrophil, Absolute 4.9 10 3/mcL Normal 2.3-8.[address] [facility] Comment on above: Performed By: #### TOMASA DIETRICH ABOGEL, CMP #### [address] [address] BMPon 11-26-2024 BUN/Creatinine Ratio 11.5 ratio Normal 10.0-22.0 [facility] Comment on above: Performed By: #### TOMASA DIETRICH ABOGEL, CMP #### [address] [address] Calcium [Mass/Vol] 9.0 mg/dL Normal 8.7-10.4 [facility] Comment on above: Performed By: #### TOMASA DIETRICH ABOGEL CMP #### [address] [address] Chloride [Moles/Vol] 100 mmol/L Normal 98-110 [facility] Comment on above: Performed By: #### TOMASA DIETRICH ABOGEL CMP #### [address] [address] CO2 [Moles/Vol] 29 mmol/L Normal 22-32 [facility] Comment on above: Performed By: #### TOMASA DIETRICH ABOGEL CMP #### [address] [address] Creatinine [Mass/Vol] 0.87 mg/dL Normal 0.60-1.40 [facility] Comment on above: Result Comment: Test ing performed on [employer] analyzer using enzymatic creatinine methodology. Performed By: #### TOMASA DIETRICH ABOGEL, CMP #### [address] [address] Electrolyte Balance 6.0 mEq/L Normal 4.0-15.0 [facility] Comment on above: Performed By: #### TOMASA DIETRICH ABOGEL, CMP #### [address] [address] Glucose [Mass/Vol] 131 mg/dL High 70-110 [facility] Comment on above: Performed By: #### TOMASA DIETRICH ABOGEL, CMP #### [address] [address] Potassium [Moles/Vol] 4.4 mmol/L Normal 3.5-5.0 [facility] Comment on above: Performed By: #### TOMASA DIETRICH ABOGEL, CMP #### [address] [address] Sodium [Moles/Vol] 135 mmol/L Low 136-145 [facility] Comment on above: Performed By: #### TOMASA DIETRICH ABOGEL, CMP #### [place] [id number] Urea nitrogen [Mass/Vol] 10.0 mg/dL Normal 8.0-22.0 [facility] Comment on above: Performed By: #### TOMASA DIETRICH ABOGEL, CMP #### [address] [address] CBCon 11-26-2024 Erythrocyte distribution width (RBC) [Ratio] 15.0 % Normal 11.5-15.5 [facility] Comment on above: Performed By: #### TOMASA DIETRICH ABOGEL, CMP #### [place] [address] Hematocrit (Bld) [Volume fraction] 42.6 % Normal 40.0-52.0 [facility] Comment on above: Performed By: #### TOMASA DIETRICH ABOGEL, CMP #### [place] [id number] Hgb 14.2 G/dL Normal 13.0-17.5 [facility] Comment on above: Performed By: #### TOMASA DIETRICH ABOGEL, CMP #### [place] [address] MCH (RBC) [Entitic mass] 29.5 pg Normal 27.0-33.0 [facility] Comment on above: Performed By: #### TOMASA DIETRICH ABOGEL, CMP #### [place] [id number] MCHC 33.4 G/dL Normal 32.0-36.0 [facility] Comment on above: Performed By: #### G , CANDELARIA RANDOLPH, CMP #### [address] [address] MCV (RBC) [Entitic vol] 88.4 fL Normal 81.0-100.0 [facility] Comment on above: Performed By: #### Abbey DEAN, CANDELARIA RANDOLPH, CMP #### [address] [address] Platelet 140 10 3/mcL Low 150-450 [facility] Comment on above: Performed By: #### Abbey DEAN, CANDELARIA RANDOLPH, CMP #### [address] [address] Platelet mean volume (Bld) [Entitic vol] 8.6 fL Normal 6.4-10.5 [facility] Comment on above: Performed By: #### TOMASA DIETRICH ABOGEL, CMP #### [place] [address] RBC 4.82 10 6/mcL Normal 4.50-6.00 [facility] Comment on above: Performed By: #### Abbey DEAN, CANDELARIA RANDOLPH, CMP #### [address] [address] WBC 6.5 10 3/mcL Normal 4.5-10.8 [facility] Comment on above: Performed By: #### Abbey DEAN, CANDELARIA RANDOLPH, CMP #### [address] [address] LABORATORYOrdered By: SYSTEM SYSTEM on 11-26-2024 Basophils (Bld) [#/Vol] 0.0 103/mcL Normal 0.0 - 0.3 10^3/mcL AH Workflow SS Basophils/100 WBC (Bld) 0.4 % Normal 0.0 - 2.5 % AH Workflow SS Calcium [Mass/Vol] 9.0 mg/dL Normal 8.7 - 10. 4 mg/dL AH ADM SS Chloride [Moles/Vol] 100 mmol/L Normal 98 - 11 0 mEq/L AH ADM SS CO2 [Moles/Vol] 29 mmol/L Normal 22 - 32 mEq/L AH ADM SS Creatinine [Mass/Vol] 0.87 mg/dL Normal 0.60 - 1.40 mg/dL ADM SS Comment on above: Interpretive Data: T esting performed on [employer] analyzer using enzymatic creatinine methodology. Electrolyte Balance 6.0 mEq/L Normal 4.0 - 15 .0 mEq/L ADM SS Eosinophils (Bld) [#/Vol] 0.0 103/mcL Normal 0.0 - 0.7 10^3/mcL Workflow SS Eosinophils/100 WBC (Bld) 0.7 % Normal 0.0 - 6.0 % Workflow SS Erythrocyte distribution width (RBC) [Ratio] 15.0 % Normal 11.5 - 15.5 % Workflow SS Estimated Glomerular Filtration Rate 103 ml/min/1.73sqm Invalid Interpretation Code Chemistry S Comment [...] to calculate the eGFR results. Glucose [Mass/Vol] 131 mg/dL High 70 - 110 mg/dL ADM SS Hematocrit (Bld) [Volume fraction] 42.6 % Normal 40.0 - 52.0 % Workflow SS Hemoglobin (Bld) [Mass/Vol] 14.2 G/dL Normal 13.0 - 17.5 G/dL AH Workflow SS Lymphocytes (Bld) [#/Vol] 0.8 103/mcL Low 0.9 - 4.3 10^3/mcL Workflow SS Lymphocytes/100 WBC (Bld) 12.2 % Low 20.0 - 40.0 % Workflow SS MCH (RBC) [Entitic mass] 29.5 pg Normal 27.0 - 33.0 pg Workflow SS MCHC 33.4 G/dL Normal 32.0 - 36.0 G/dL Workflow SS MCV (RBC) [Entitic vol] 88.4 fL Normal 81.0 - 100.0 fL AH Workflow SS Monocytes (Bld) [#/Vol] 0.7 103/mcL Normal 0.1 - 1.4 10^3/mcL AH Workflow SS Monocytes/100 WBC (Bld) 11.2 % Normal 2.0 - 13.0 % AH Workflow SS Neutrophils (Bld) [#/Vol] 4.9 103/mcL Normal 2.3 - 8.1 10^3/mcL AH Workflow SS Neutrophils/100 WBC (Bld) 75.5 % High 50.0 - 75.0 % AH Workflow SS Platelet mean volume (Bld) [Entitic vol] 8.6 fL Normal 6.4 - 10.5 fL AH Workflow SS Platelets (Bld) [#/Vol] 140 103/mcL Low 150 - 450 10^3/mcL AH Workflow SS Potassium [Moles/Vol] 4.4 mmol/L Normal 3.5 - 5.0 mEq/L AH ADM SS RBC (Bld) [#/Vol] 4.82 106/mcL Normal 4.50 - 6.0 0 10^6/mcL AH Workflow SS Sodium [Moles/Vol] 135 mmol/L Low 136 - 145 mEq/L AH ADM SS Urea nitrogen [Mass/Vol] 10.0 mg/dL Normal 8.0 - 22.0 mg/dL AH ADM SS Urea nitrogen/Creatinine [Mass ratio] 11.5 ratio Normal 10.0 - 22.0 ratio AH ADM SS WBC (Bld) [#/Vol] 6.5 103/mcL Normal 4.5 - 10.8 10^3/mcL AH Workflow SS No Panel Informationon 11-26 Microscopic examination of blood, culture Culture has been received in lab and is no growth to date. Routine cultures are held for 5 days. [facility] .Auto Diffon 11-25-2024 Basophil, Absolute 0.0 10 3/mcL Normal 0.0-0.3 [facility] Comment on above: Performed By: #### G TOMASA DEAN ABOGEL, CMP #### [facility] [address] [place] [address] Basophils/100 WBC (Bld) 0.4 % Normal 0.0-2.5 [facility] Comment on above: Performed By: #### G TOMASA DEAN ABOGEL, CMP #### [address] [address] Eosinophil, Absolute 0.1 10 3/mcL Normal 0.0-0.[address] [facility] Comment on above: Performed By: #### G FR, ABSJOSELUIS ABOGEL, CMP #### [address] [address] Eosinophils/100 WBC (Bld) 0.6 % Normal 0.0-6.0 [facility] Comment on above: Performed By: #### G FR, ABSJOSELUIS ABOGEL, CMP #### [address] [address] Lymphocyte, Absolute 0.8 10 3/mcL Low 0.9-4.[address] [facility] Comment on above: Performed By: #### G FR, ABSMEGHAN HUGGINSGEL, CMP #### [address] [address] Lymphocytes/100 WBC (Bld) 9.6 % Low 20.0-40.0 [facility] Comment on above: Performed By: #### G FR, ABSMEGHAN HUGGINSGEL, CMP #### [address] [address] Monocyte, Absolute 0.8 10 3/mcL Normal 0.1-1.4 [facility] Comment on above: Performed By: #### G FR, ABSMEGHAN HUGGINSGEL, CMP #### [address] [address] Monocytes/100 WBC (Bld) 9.3 % Normal 2.0-13.0 [facility] Comment on above: Performed By: #### G FR, ABSGEL, ABOGEL, CMP #### [address] [address] Neutrophils/100 WBC (Bld) 80.1 % High 50.0-75.0 [facility] Comment on above: Performed By: #### G FR, ABSGEL, ABOGEL, CMP #### [address] [address] .GFRon 11-25-2024 Estimated Glomerular Filtration Rate 102 ml/min/1.73sqm Normal [facility] Comment on above: Result Comment: [...] calculate the eGFR results. Performed By: #### G TOMASA DEAN ABOGEL, CMP #### [place] [address] .NEUABSon 11-25-2024 Neutrophil, Absolute 7.1 10 3/mcL Normal 2.3-8.[address] [facility] Comment on above: Performed By: #### G TOMASA DEAN ABOGEL CMP #### [place] [address] BCIDon 11-25-2024 Acinetobacter carol-baumanii complex Not detected Normal Not Detected [facility] Comment on above: Performed By: #### A ERIC, CBC, BMP, ADIFF, GFR #### [place] [address] Bacteroides fragilis Not detected Normal Not Detected [facility] Comment on above: Performed By: #### A ERIC, CBC, BMP, ADIFF, GFR #### [place] [address] BCID Comment See Comment Normal [facility] Comment on above: Result Comment: Anti microbial resistance can occur via multiple mechanisms. A Not Detected result for antimicrobial resistance gene(s) does not indicate antimicrobial susceptibility. Culture identification and susceptibility results to follow. All [employer] BCID2 Panel results are intended to be interpreted in conjunction with the Gram stain results. In some cases, the Gram stain result and the B[employer] BCID2 Panel result may be discrepant. In these cases, the BIOFIRE BCID2 Panel results should be confirmed by culture or other laboratory, epidemiological, or clinical findings. Blood culture media may contain non-viable organisms and/or nucleic acids that may lead to false positive BIOFIRE BCID2 Panel results. Typically, these false positives present with more than one positive result from the BIOFIRE BCID2 Panel. If BCID panel was negative (Not Detected) for all targets, this does not exclude a blood stream infection. Our blood culture system detected growth. Culture identification and susceptibility testing (if appropriate) to follow. Performed By: #### A ERIC, CBC, BMP, ADIFF, GFR #### [place] [address] Moiz albicans Not detected Normal Not Detected [facility] Comment on above: Performed By: #### A ERIC, CBC, BMP, ADIFF, GFR #### [place] [address] Moiz auris Not detected Normal Not Detected [facility] Comment on above: Performed By: #### A ERIC, CBC, BMP, ADIFF, GFR #### [place] [address] Moiz glabrata Not detected Normal Not Detected [facility] Comment on above: Performed By: #### A ERIC, CBC, BMP, ADIFF, GFR #### [place] [address] Moiz krusei Not detected Normal Not Detected [facility] Comment on above: Performed By: #### A ERIC, CBC, BMP, ADIFF, GFR #### [place] [address] Moiz parapsilosis Not detected Normal Not Detected [facility] Comment on above: Performed By: #### A ERIC, CBC, BMP, ADIFF, GFR #### [place] [address] Moiz tropicalis Not detected Normal Not Detected [facility] Comment on above: Performed By: #### A ERIC, CBC, BMP, ADIFF, GFR #### [place] [address] Cryptococcus neoformans-gattii Not detected Normal Not Detected [facility] Comment on above: Performed By: #### A ERIC, CBC, BMP, ADIFF, GFR #### [place] [address] CTX-M (ESBL) Not Applicable Normal Not Detected [facility] Comment on above: Performed By: #### A ERIC, CBC, BMP, ADIFF, GFR #### [place] [address] E. Coli Not detected Normal Not Detected [facility] Comment on above: Performed By: #### A ERIC, CBC, BMP, ADIFF, GFR #### [place] [address] Enterobacter cloacae Complex Not detected Normal Not Detected [facility] Comment on above: Performed By: #### A ERIC, CBC, BMP, ADIFF, GFR #### [place] [address] Enterobacterales Not detected Normal Not Detected [facility] Comment on above: Performed By: #### A ERIC, CBC, BMP, ADIFF, GFR #### [place] [address] Enterococcus faecalis Not detected Normal Not Detected [facility] Comment on above: Performed By: #### A ERIC, CBC, BMP, ADIFF, GFR #### [place] [address] Enterococcus faecium Not detected Normal Not Detected [facility] Comment on above: Performed By: #### A ERIC, CBC, BMP, ADIFF, GFR #### [place] [address] Haemophilus influenzae Not detected Normal Not Detected [facility] Comment on above: Performed By: #### A ERIC, CBC, BMP, ADIFF, GFR #### [place] [address] IMP (Carbapenemase) Not Applicable Normal Not Detected [facility] Comment on above: Performed By: #### A ERIC, CBC, BMP, ADIFF, GFR #### [place] [address] Klebsiella aerogenes Not detected Normal Not Detected [facility] Comment on above: Performed By: #### A ERIC, CBC, BMP, ADIFF, GFR #### [place] [address] Klebsiella oxytoca Not detected Normal Not Detected [facility] Comment on above: Performed By: #### A ERIC, CBC, BMP, ADIFF, GFR #### [place] [address] Klebsiella pneumoniae group Not detected Normal Not Detected [facility] Comment on above: Performed By: #### A ERIC, CBC, BMP, ADIFF, GFR #### [place] [address] KPC (Carbapenemase) Not Applicable Normal Not Detected [facility] Comment on above: Performed By: #### A ERIC, CBC, BMP, ADIFF, GFR #### [place] [address] Listeria monocytogenes Not detected Normal Not Detected [facility] Comment on above: Performed By: #### A ERIC, CBC, BMP, ADIFF, GFR #### [place] [address] MCR-1 (Colistin Resistance) Not Applicable Normal Not Detected [facility] Comment on above: Performed By: #### A ERIC, CBC, BMP, ADIFF, GFR #### [place] [address] Mec A/C Not Applicable Normal Not Detected [facility] Comment on above: Performed By: #### A ERIC, CBC, BMP, ADIFF, GFR #### [place] [address] Mec A/C-MREJ (MRSA) Not detected Normal Not Detected [facility] Comment on above: Performed By: #### A ERIC, CBC, BMP, ADIFF, GFR #### [place] [address] NDM (Carbapenemase) Not Applicable Normal Not Detected [facility] Comment on above: Performed By: #### A ERIC, CBC, BMP, ADIFF, GFR #### [place] [address] Neisseria meningitidis (Encapsalated) Not detected Normal Not Detected [facility] Comment on above: Performed By: #### A ERIC, CBC, BMP, ADIFF, GFR #### [place] [address] OXA-48 like (Carbapenemase) Not Applicable Normal Not Detected [facility] Comment on above: Performed By: #### A ERIC, CBC, BMP, ADIFF, GFR #### [place] [address] Proteus Not detected Normal Not Detected [facility] Comment on above: Performed By: #### A ERIC, CBC, BMP, ADIFF, GFR #### [place] [address] Pseudomonas aeruginosa Not detected Normal Not Detected [facility] Comment on above: Performed By: #### A ERIC, CBC, BMP, ADIFF, GFR #### [place] [address] S. agalactiae Org specific cx Ql (Vag fld) Not detected Normal Not Detected [facility] Comment on above: Performed By: #### A ERIC, CBC, BMP, ADIFF, GFR #### [place] [address] Salmonella species Not detected Normal Not Detected [facility] Comment on above: Performed By: #### A ERIC, CBC, BMP, ADIFF, GFR #### [place] [address] Serratia marcescens Not detected Normal Not Detected [facility] Comment on above: Performed By: #### A ERIC, CBC, BMP, ADIFF, GFR #### [place] [address] Staphylococcus Detected Abnormal Not Detected [facility] Comment on above: Performed By: #### A ERIC, CBC, BMP, ADIFF, GFR #### [place] [address] Staphylococcus aureus Detected Abnormal Not Detected [facility] Comment on above: Result Comment: If S taphylococcus aureus is Detected, an Infectious Disease physician consult is required on identification. Performed By: #### A ERIC, CBC, BMP, ADIFF, GFR #### [place] [address] Staphylococcus epidermidis Not detected Normal Not Detected [facility] Comment on above: Performed By: #### A ERIC, CBC, BMP, ADIFF, GFR #### [place] [address] Staphylococcus lugdunensis Not detected Normal Not Detected [facility] Comment on above: Performed By: #### A ERIC, CBC, BMP, ADIFF, GFR #### [place] [address] Stenotrophomonas maltophilia Not detected Normal Not Detected [facility] Comment on above: Performed By: #### A ERIC, CBC, BMP, ADIFF, GFR #### [place] [address] Streptococcus Not detected Normal Not Detected [facility] Comment on above: Performed By: #### A ERIC, CBC, BMP, ADIFF, GFR #### [place] [address] Streptococcus pneumoniae Not detected Normal Not Detected [facility] Comment on above: Performed By: #### A ERIC, CBC, BMP, ADIFF, GFR #### [place] [address] Streptococcus pyogenes Not detected Normal Not Detected [facility] Comment on above: Performed By: #### A ERIC, CBC, BMP, ADIFF, GFR #### [place] [address] Van A/B Not Applicable Normal Not Detected [facility] Comment on above: Performed By: #### A ERIC, CBC, BMP, ADIFF, GFR #### [place] [address] VIM (Carbapenemase) Not Applicable Normal Not Detected [facility] Comment on above: Performed By: #### A ERIC, CBC, BMP, ADIFF, GFR #### [place] [address] BMPon 11-25-2024 BUN/Creatinine Ratio 15.7 ratio Normal 10.0-22.0 [facility] Comment on above: Performed By: #### G FR, BMP, CBC, MG, ADIFF, ANEU #### [place] [address] Calcium [Mass/Vol] 9.1 mg/dL Normal 8.7-10.4 [facility] Comment on above: Performed By: #### G FR, BMP, CBC, MG, ADIFF, ANEU #### [address] [address] Chloride [Moles/Vol] 100 mmol/L Normal 98-110 [facility] Comment on above: Performed By: #### G FR, BMP, CBC, MG, ADIFF, ANEU #### [address] [address] CO2 [Moles/Vol] 24 mmol/L Normal 22-32 [facility] Comment on above: Performed By: #### G FR, BMP, CBC, MG, ADIFF, ANEU #### [address] [address] Creatinine [Mass/Vol] 0.89 mg/dL Normal 0.60-1.40 [facility] Comment on above: Result Comment: Test ing performed on [employer] analyzer using enzymatic creatinine methodology. Performed By: #### G FR, BMP, CBC, MG, ADIFF, ANEU #### [address] [address] Electrolyte Balance 12.0 mEq/L Normal 4.0-15.0 [facility] Comment on above: Performed By: #### G FR, BMP, CBC, MG, ADIFF, ANEU #### [address] [address] Glucose [Mass/Vol] 108 mg/dL Normal 70-110 [facility] Comment on above: Performed By: #### G FR, BMP, CBC, MG, ADIFF, ANEU #### [address] [address] Potassium [Moles/Vol] 3.8 mmol/L Normal 3.5-5.0 [facility] Comment on above: Performed By: #### G FR, BMP, CBC, MG, ADIFF, ANEU #### [address] [address] Sodium [Moles/Vol] 136 mmol/L Normal 136-145 [facility] Comment on above: Performed By: #### G FR, BMP, CBC, MG, ADIFF, ANEU #### [address] [address] Urea nitrogen [Mass/Vol] 14.0 mg/dL Normal 8.0-22.0 [facility] Comment on above: Performed By: #### G FR, BMP, CBC, MG, ADIFF, ANEU #### [address] [address] CBCon 11-25-2024 Erythrocyte distribution width (RBC) [Ratio] 15.3 % Normal 11.5-15.5 [facility] Comment on above: Order Comment: QNS Performed By: #### TOMASA DIETRICH ABOGEL, CMP #### [place] [address] Hematocrit (Bld) [Volume fraction] 44.6 % Normal 40.0-52.0 [facility] Comment on above: Order Comment: QNS Performed By: #### TOMASA DIETRICH ABOGEL, CMP #### [place] [address] Hgb 14.9 G/dL Normal 13.0-17.5 [facility] Comment on above: Order Comment: QNS Performed By: #### TOMASA DIETRICH ABOGEL, CMP #### [place] [address] MCH (RBC) [Entitic mass] 29.2 pg Normal 27.0-33.0 [facility] Comment on above: Order Comment: QNS Performed By: #### TOMASA DIETRICH ABOGEL, CMP #### [place] [address] MCHC 33.4 G/dL Normal 32.0-36.0 [facility] Comment on above: Order Comment: QNS Performed By: #### TOMASA DIETRICH ABOGEL, CMP #### [place] [address] MCV (RBC) [Entitic vol] 87.6 fL Normal 81.0-100.0 [facility] Comment on above: Order Comment: QNS Performed By: #### TOMASA DIETRICH ABOGEL, CMP #### [facility] [address] [place] [address] Platelet 183 10 3/mcL Normal 150-450 [facility] Comment on above: Order Comment: QNS Performed By: #### Abbey DEAN, CANDELARIA RANDOLPH, CMP #### [facility] [address] [place] [address] Platelet mean volume (Bld) [Entitic vol] 8.3 fL Normal 6.4-10.5 [facility] Comment on above: Order Comment: QNS Performed By: #### Abbey DEAN, CANDELARIA RANDOLPH, CMP #### [address] [address] RBC 5.08 10 6/mcL Normal 4.50-6.00 [facility] Comment on above: Order Comment: QNS Performed By: #### Abbey DEAN, CANDELARIA RANDOLPH, CMP #### [address] [address] WBC 8.9 10 3/mcL Normal 4.5-10.8 [facility] Comment on above: Order Comment: QNS Performed By: #### Abbey DEAN, CANDELARIA RANDOLPH, CMP #### [address] [address] LABORATORYOrdered By: SYSTEM SYSTEM on 11-25-2024 Basophils (Bld) [#/Vol] 0.0 103/mcL Normal 0.0 - 0.3 10^3/mcL AH Workflow SS Basophils/100 WBC (Bld) 0.4 % Normal 0.0 - 2.5 % AH Workflow SS Eosinophils (Bld) [#/Vol] 0.1 103/mcL Normal 0.0 - 0.7 10^3/mcL AH Workflow SS Eosinophils/100 WBC (Bld) 0.6 % Normal 0.0 - 6.0 % AH Workflow SS Erythrocyte distribution width (RBC) [Ratio] 15.3 % Normal 11.5 - 15.5 % AH Workflow SS Hematocrit (Bld) [Volume fraction] 44.6 % Normal 40.0 - 52.0 % AH Workflow SS Hemoglobin (Bld) [Mass/Vol] 14.9 G/dL Normal 13.0 - 17.5 G/dL AH Workflow SS Lymphocytes (Bld) [#/Vol] 0.8 103/mcL Low 0.9 - 4.3 10^3/mcL AH Workflow SS Lymphocytes/100 WBC (Bld) 9.6 % Low 20.0 - 40.0 % AH Workflow SS MCH (RBC) [Entitic mass] 29.2 pg Normal 27.0 - 33.0 pg AH Workflow SS MCHC 33.4 G/dL Normal 32.0 - 36.0 G/dL AH Workflow SS MCV (RBC) [Entitic vol] 87.6 fL Normal 81.0 - 100.0 fL AH Workflow SS Monocytes (Bld) [#/Vol] 0.8 103/mcL Normal 0.1 - 1.4 10^3/mcL AH Workflow SS Monocytes/100 WBC (Bld) 9.3 % Normal 2.0 - 13.0 % AH Workflow SS Neutrophils (Bld) [#/Vol] 7.1 103/mcL Normal 2.3 - 8.1 10^3/mcL AH Workflow SS Neutrophils/100 WBC (Bld) 80.1 % High 50.0 - 75.0 % AH Workflow SS Platelet mean volume (Bld) [Entitic vol] 8.3 fL Normal 6.4 - 10.5 fL AH Workflow SS Platelets (Bld) [#/Vol] 183 103/mcL Normal 150 - 450 10^3/mcL AH Workflow SS RBC (Bld) [#/Vol] 5.08 106/mcL Normal 4.50 - 6.0 0 10^6/mcL AH Workflow SS WBC (Bld) [#/Vol] 8.9 103/mcL Normal 4.5 - 10.8 10^3/mcL AH Workflow SS Calcium [Mass/Vol] 9.1 mg/dL Normal 8.7 - 10. 4 mg/dL ADM SS Chloride [Moles/Vol] 100 mmol/L Normal 98 - 11 0 mEq/L AH ADM SS CO2 [Moles/Vol] 24 mmol/L Normal 22 - 32 mEq/L AH ADM SS Creatinine [Mass/Vol] 0.89 mg/dL Normal 0.60 - 1.40 mg/dL AH ADM SS Comment on above: Interpretive Data: T esting performed on [employer] analyzer using enzymatic creatinine methodology. Electrolyte Balance 12.0 mEq/L Normal 4.0 - 15 .0 mEq/L AH ADM SS Estimated Glomerular Filtration Rate 102 ml/min/1.73sqm Invalid Interpretation Code Chemistry S Comment [...] Normal 70 - 110 mg/dL ADM SS Magnesium [Mass/Vol] 2.1 mg/dL Normal 1.6 - 2 .4 mg/dL ADM SS Potassium [Moles/Vol] 3.8 mmol/L Normal 3.5 - 5.0 mEq/L ADM SS Sodium [Moles/Vol] 136 mmol/L Normal 136 - 145 mEq/L ADM SS Urea nitrogen [Mass/Vol] 14.0 mg/dL Normal 8.0 - 22.0 mg/dL ADM SS Urea nitrogen/Creatinine [Mass ratio] 15.7 ratio Normal 10.0 - 22.0 ratio ADM SS MGon 11-25-2024 Magnesium [Mass/Vol] 2.1 mg/dL Normal 1.6-2.4 [facility] Comment on above: Performed By: #### G , TOMASA, CANDELARIA, CMP #### [place] [address] No Panel Informationon 11-25 GSAER Gram Positive Cocci in clusters [facility] Microscopic examination of blood, culture Culture has been received in lab and is no growth to date. Routine cultures are held for 5 days. [facility] Microscopic examination of blood, culture Staphylococcus coagulase negative Staphylococcus coagulase negative #2 Staphylococcus coagulase negative #3 Isolated from aerobe bottle only. 1 out of 2 sets positive Organism is a potential contaminant. Clinical Significance undetermined. Please contact Microbiology if further work-up is required. [facility] XR ANKLE MINIMUM 3 VIEWS LEF Ton 11-25-2024 XR ANKLE MINIMUM 3 VIEWS LEFT ORIGINAL EXAMINATION: THREE XRAY VIEWS OF THE LEFT ANKLE11/25/2024 6:03 pm COMPARISON: 10/16/2024 HISTORY: ORDERING SYSTEM PROVIDED HISTORY: Reason for Exam: left ankle fx, FINDINGS: Distal fibular/lateral malleolar displaced fracture, shows no significant change in alignment. Reparative changes in the form a callus formation and periosteal reaction. Corticated ossicles at tip of medial malleolus, same as prior exam. Adjacent mild soft tissue swelling. Alignment at ankle joint is stable. IMPRESSION: Stable alignment of distal fibula/lateral malleolar fracture with callus formation.. I have personally reviewed the images of this examination and agree with the resident's findings and interpretation. Interpreted by: Beau Coley Preliminary Report By: Jordon Levin Electronically signed By Beau Coley Dictated Date: 11/25/2024 7:42:53 PM Prelim Date: 11/25/2024 7:45:19 PM Sign Date: 11/25/2024 7:46:46 PM Ordering Provider: SUZE MISHRA Interpreted by: Beau Coley Preliminary Report By: Jordon Levin Electronically signed By Beau Coley Dictated Date: 11/25/2024 7:42:53 PM Prelim Date: 11/25/2024 7:45:19 PM Sign Date: 11/25/2024 7:46:46 PM Ordering Provider: SUZE MISHRA [facility]IN XR ANKLE MINIMUM 3 VIEWS RIG HTon 11-25-2024 XR ANKLE MINIMUM 3 VIEWS RIGHT ORIGINAL EXAMINATION: THREE XRAY VIEWS OF THE RIGHT ANKLE 11/25/2024 6:02 pm COMPARISON: CT of the ankle October 17, 2024 HISTORY: ORDERING SYSTEM PROVIDED HISTORY: Reason for Exam: ankle ex-fix FINDINGS: External fixation of the tibia and calcaneus. Similar appearing alignment and appearance of the ankle and fibular fracture. Soft tissue swelling and edema. IMPRESSION: Given differences in technique, no significant change in the osseous structures from prior exam. Interpreted by: Trace Fierro Preliminary Report By: Trace Fierro Electronically signed By Trace Fierro Dictated Date: 11/25/2024 7:35:44 PM Prelim Date: 11/25/2024 7:39:01 PM Sign Date: 11/25/2024 7:39:01 PM Ordering Provider: SUZE MISHRA Interpreted by: Trace Fierro Preliminary Report By: Trace Fierro Electronically signed By Trace Fierro Dictated Date: 11/25/2024 7:35:44 PM Prelim Date: 11/25/2024 7:39:01 PM Sign Date: 11/25/2024 7:39:01 PM Ordering Provider: SUZE MISHRA [facility] XR TIBIA/FIBULA 2 VIEWS [facility] 11-25-2024 XR TIBIA/FIBULA 2 VIEWS RIGHT ORIGINAL EXAMINATION: TWO XRAY VIEWS OF THE RIGHT TIBIA/FIBULA11/25/2024 6:03 pm COMPARISON: None HISTORY: ORDERING SYSTEM PROVIDED HISTORY: Reason for Exam: soft tissue infection right ankle, FINDINGS: No acute fracture or dislocation is seen within the proximal tibia and fibula. External fixator with metallic screws within the tibia. Suspected small knee joint effusion. IMPRESSION: No acute fracture or dislocation of the proximal tibia or fibula. External fixator. I have personally reviewed the images of this examination and agree with the resident's findings and interpretation. Interpreted by: Beau Coley Preliminary Report By: Jordon Levin Electronically signed By Beau Coley Dictated Date: 11/25/2024 7:37:39 PM Prelim Date: 11/25/2024 7:39:48 PM Sign Date: 11/25/2024 7:42:39 PM Ordering Provider: ORI TOMLIN Interpreted by: Beau Coley Preliminary Report By: Jordon Levin Electronically signed By Beau Coley Dictated Date: 11/25/2024 7:37:39 PM Prelim Date: 11/25/2024 7:39:48 PM Sign Date: 11/25/2024 7:42:39 PM Ordering Provider: ORI TOMLIN [facility] MAIN .Auto Diffon 11-24-2024 Basophil, Absolute 0.0 10 3/mcL Normal 0.0-0.3 [facility] Comment on above: Performed By: #### A ERIC, CBC, BMP, ADIFF, GFR #### [address] [address] Basophils/100 WBC (Bld) 0.2 % Normal 0.0-2.5 [facility] Comment on above: Performed By: #### A ERIC, CBC, BMP, ADIFF, GFR #### [address] [address] Eosinophil, Absolute 0.0 10 3/mcL Normal 0.0-0.[address] [facility] MAIN Comment on above: Performed By: #### A ERIC, CBC, BMP, ADIFF, GFR #### [address] [address] Eosinophils/100 WBC (Bld) 0.2 % Normal 0.0-6.0 [facility] Comment on above: Performed By: #### A ERIC, CBC, BMP, ADIFF, GFR #### [address] [address] Lymphocyte, Absolute 1.2 10 3/mcL Normal 0.9-4.[address] [facility] MAIN Comment on above: Performed By: #### A ERIC, CBC, BMP, ADIFF, GFR #### [address] [address] Lymphocytes/100 WBC (Bld) 9.9 % Low 20.0-40.0 [facility] Comment on above: Performed By: #### A ERIC, CBC, BMP, ADIFF, GFR #### [address] [address] Monocyte, Absolute 1.6 10 3/mcL High 0.1-1.4 [facility] Comment on above: Performed By: #### A ERIC, CBC, BMP, ADIFF, GFR #### [address] [address] Monocytes/100 WBC (Bld) 12.6 % Normal 2.0-13.0 [facility] Comment on above: Performed By: #### A ERIC, CBC, BMP, ADIFF, GFR #### [address] [address] Neutrophils/100 WBC (Bld) 77.1 % High 50.0-75.0 [facility] Comment on above: Performed By: #### A ERIC, CBC, BMP, ADIFF, GFR #### [facility] [address] [place] [address] Basophil, Absolute 0.1 10 3/mcL Normal 0.0-0.3 [facility] Comment on above: Performed By: #### A MD ERICW, BMP, MG, GFR, ADIFF, DIMER, CBC, PBNP, TROPHS #### [address] [address] Basophils/100 WBC (Bld) 0.4 % Normal 0.0-2.5 [facility] Comment on above: Performed By: #### A MD ERICW, BMP, MG, GFR, ADIFF, DIMER, CBC, PBNP, TROPHS #### [address] [address] Eosinophil, Absolute 0.0 10 3/mcL Normal 0.0-0.7 [facility] Comment on above: Performed By: #### A LEY REYES, BMP, MG, GFR, ADIFF, DIMER, CBC, PBNP, TROPHS #### [address] [address] Eosinophils/100 WBC (Bld) 0.1 % Normal 0.0-6.0 [facility] Comment on above: Performed By: #### A MD ERICW, BMP, MG, GFR, ADIFF, DIMER, CBC, PBNP, TROPHS #### [address] [address] Lymphocyte, Absolute 1.0 10 3/mcL Normal 0.9-4.3 [facility] Comment on above: Performed By: #### A MD ERICW, BMP, MG, GFR, ADIFF, DIMER, CBC, PBNP, TROPHS #### [address] [address] Lymphocytes/100 WBC (Bld) 5.8 % Low 20.0-40.0 [facility] Comment on above: Performed By: #### A MD ERICW, BMP, MG, GFR, ADIFF, DIMER, CBC, PBNP, TROPHS #### [address] [address] Monocyte, Absolute 1.9 10 3/mcL High 0.1-1.4 [facility] Comment on above: Performed By: #### A ELY REYES, BMP, MG, GFR, ADIFF, DIMER, CBC, PBNP, TROPHS #### [place] [id number] [place], [place] [address] Monocytes/100 WBC (Bld) 11.5 % Normal 2.0-13.0 [facility] Comment on above: Performed By: #### A ELY REYES, BMP, MG, GFR, ADIFF, DIMER, CBC, PBNP, TROPHS #### [address] [address] Neutrophils/100 WBC (Bld) 82.2 % High 50.0-75.0 [facility] Comment on above: Performed By: #### A ELY REYES, BMP, MG, GFR, ADIFF, DIMER, CBC, PBNP, TROPHS #### [address] [address] .GFRon 11-24-2024 Estimated Glomerular Filtration Rate 102 ml/min/1.73sqm [facility] MAIN Comment on above: Result Comment: [...] eGFR results. Performed By: #### A ERIC, CBC, BMP, ADIFF, GFR #### [facility] [address] [place] [address] Estimated Glomerular Filtration Rate 93 ml/min/1.73sqm Normal [facility] Comment on above: Result Comment: Stages of [...] eGFR results. Performed By: #### A ERIC, MDW, BMP, MG, GFR, ADIFF, DIMER, CBC, PBNP, TROPHS #### [address] [address] .MDWon 11-24-2024 Monocyte Distribution Width 19.29 Normal 0.00-20.00 [facility] Comment on above: Result Comment: For ED adult patients suspected of sepsis, MDW<=20.0 does not rule out sepsis or risk of sepsis Performed By: #### A ERIC, MDW, BMP, MG, GFR, ADIFF, DIMER, CBC, PBNP, TROPHS #### [address] [address] .NEUABSon 11-24-2024 Neutrophil, Absolute 9.7 10 3/mcL High 2.3-8.[address] [facility] MAIN Comment on above: Performed By: #### A ERIC, CBC, BMP, ADIFF, GFR #### [facility] [address] [place] [address] Neutrophil, Absolute 13.6 10 3/mcL High 2.3-8.1 [facility] Comment on above: Performed By: #### A ERIC, MDW, BMP, MG, GFR, ADIFF, DIMER, CBC, PBNP, TROPHS #### [address] [address] BMPon 11-24-2024 BUN/Creatinine Ratio 10.0 ratio Normal 10.0-22.0 [facility] Comment on above: Performed By: #### A ERIC, CBC, BMP, ADIFF, GFR #### [address] [address] Calcium [Mass/Vol] 9.2 mg/dL Normal 8.7-10.4 [facility] MAIN Comment on above: Performed By: #### A ERIC, CBC, BMP, ADIFF, GFR #### [address] [address] Chloride [Moles/Vol] 99 mmol/L Normal 98-110 [facility] MAIN Comment on above: Performed By: #### A ERIC, CBC, BMP, ADIFF, GFR #### [address] [address] CO2 [Moles/Vol] 23 mmol/L Normal 22-32 [facility] MAIN Comment on above: Performed By: #### A ERIC, CBC, BMP, ADIFF, GFR #### [address] [address] Creatinine [Mass/Vol] 0.90 mg/dL Normal 0.60-1.40 [facility] MAIN Comment on above: Result Comment: Test ing performed on [employer] analyzer using enzymatic creatinine methodology. Performed By: #### A ERIC, CBC, BMP, ADIFF, GFR #### [address] [address] Electrolyte Balance 12.0 mEq/L Normal 4.0-15.0 [facility] MAIN Comment on above: Performed By: #### A ERIC, CBC, BMP, ADIFF, GFR #### [address] [address] Glucose [Mass/Vol] 109 mg/dL Normal 70-110 [facility] MAIN Comment on above: Performed By: #### A ERIC, CBC, BMP, ADIFF, GFR #### [address] [address] Potassium [Moles/Vol] 4.1 mmol/L Normal 3.5-5.0 [facility] MAIN Comment on above: Performed By: #### A ERIC, CBC, BMP, ADIFF, GFR #### [address] [address] Sodium [Moles/Vol] 134 mmol/L Low 136-145 [facility] Comment on above: Performed By: #### A ERIC, CBC, BMP, ADIFF, GFR #### [address] [address] Urea nitrogen [Mass/Vol] 9.0 mg/dL Normal 8.0-22.0 [facility] Comment on above: Performed By: #### A ERIC, CBC, BMP, ADIFF, GFR #### [address] [address] BUN/Creatinine Ratio 11 ratio Normal 7-27 [facility] Comment on above: Performed By: #### A MD ERICW, BMP, MG, GFR, ADIFF, DIMER, CBC, PBNP, TROPHS #### [address] [address] Calcium [Mass/Vol] 8.7 mg/dL Normal 8.4-10.2 [facility] Comment on above: Performed By: #### A MD ERICW, BMP, MG, GFR, ADIFF, DIMER, CBC, PBNP, TROPHS #### [address] [address] Chloride [Moles/Vol] 99 mmol/L Normal 98-107 [facility] Comment on above: Performed By: #### A MD ERICW, BMP, MG, GFR, ADIFF, DIMER, CBC, PBNP, TROPHS #### [address] [address] CO2 [Moles/Vol] 28 mmol/L Normal 22-29 [facility] Comment on above: Performed By: #### A MD ERICW, BMP, MG, GFR, ADIFF, DIMER, CBC, PBNP, TROPHS #### [address] [address] Creatinine [Mass/Vol] 0.97 mg/dL Normal 0.67-1.17 [facility] Comment on above: Performed By: #### A MD ERICW, BMP, MG, GFR, ADIFF, DIMER, CBC, PBNP, TROPHS #### [address] [address] Electrolyte Balance 6.0 mEq/L Normal 4.0-15.0 [facility] Comment on above: Performed By: #### A ELY REYES, BMP, MG, GFR, ADIFF, DIMER, CBC, PBNP, TROPHS #### [address] [address] Glucose [Mass/Vol] 130 mg/dL High 70-105 [facility] Comment on above: Performed By: #### A ELY REYES, BMP, MG, GFR, ADIFF, DIMER, CBC, PBNP, TROPHS #### [address] [address] Potassium [Moles/Vol] 4.9 mmol/L Normal 3.5-5.1 [facility] Comment on above: Performed By: #### A ELY REYES, BMP, MG, GFR, ADIFF, DIMER, CBC, PBNP, TROPHS #### [address] [address] Sodium [Moles/Vol] 133 mmol/L Low 136-145 [facility] Comment on above: Performed By: #### A ELY REYES, BMP, MG, GFR, ADIFF, DIMER, CBC, PBNP, TROPHS #### [address] [address] Urea nitrogen [Mass/Vol] 11 mg/dL Normal 7-18 [facility] Comment on above: Performed By: #### A ELY REYES, BMP, MG, GFR, ADIFF, DIMER, CBC, PBNP, TROPHS #### [address] [address] CBCon 11-24-2024 Erythrocyte distribution width (RBC) [Ratio] 15.1 % Normal 11.5-15.5 [facility] Comment on above: Performed By: #### A ERIC, CBC, BMP, ADIFF, GFR #### [facility] [address] [place] [address] Hematocrit (Bld) [Volume fraction] 48.7 % Normal 40.0-52.0 [facility] Comment on above: Performed By: #### A ERIC, CBC, BMP, ADIFF, GFR #### [place] [address] Hgb 15.7 G/dL Normal 13.0-17.5 [facility] Comment on above: Performed By: #### A ERIC, CBC, BMP, ADIFF, GFR #### [place] [address] MCH (RBC) [Entitic mass] 28.3 pg Normal 27.0-33.0 [facility] Comment on above: Performed By: #### A ERIC, CBC, BMP, ADIFF, GFR #### [place] [address] MCHC 32.3 G/dL Normal 32.0-36.0 [facility] Comment on above: Performed By: #### A ERIC, CBC, BMP, ADIFF, GFR #### [place] [address] MCV (RBC) [Entitic vol] 87.7 fL Normal 81.0-100.0 [facility] Comment on above: Performed By: #### A ERIC, CBC, BMP, ADIFF, GFR #### [place] [address] Platelet 190 10 3/mcL Normal 150-450 [facility] Comment on above: Performed By: #### A ERIC, CBC, BMP, ADIFF, GFR #### [place] [address] Platelet mean volume (Bld) [Entitic vol] 8.0 fL Normal 6.4-10.5 [facility] Comment on above: Performed By: #### A ERIC, CBC, BMP, ADIFF, GFR #### [place] [address] RBC 5.56 10 6/mcL Normal 4.50-6.00 [facility] Comment on above: Performed By: #### A ERIC, CBC, BMP, ADIFF, GFR #### [place] [address] WBC 12.6 10 3/mcL High 4.5-10.8 [facility] Comment on above: Performed By: #### A ERIC, CBC, BMP, ADIFF, GFR #### [facility] [address] [place] [address] Erythrocyte distribution width (RBC) [Ratio] 15.5 % Normal 11.5-15.5 [facility] Comment on above: Performed By: #### A ELY REYES, BMP, MG, GFR, ADIFF, DIMER, CBC, PBNP, TROPHS #### [address] [address] Hematocrit (Bld) [Volume fraction] 46.6 % Normal 40.0-52.0 [facility] Comment on above: Performed By: #### A ELY REYES, BMP, MG, GFR, ADIFF, DIMER, CBC, PBNP, TROPHS #### [address] [address] Hgb 15.4 G/dL Normal 13.0-17.5 [facility] Comment on above: Performed By: #### A ELY REYES, BMP, MG, GFR, ADIFF, DIMER, CBC, PBNP, TROPHS #### [address] [address] MCH (RBC) [Entitic mass] 28.8 pg Normal 27.0-33.0 [facility] Comment on above: Performed By: #### A ELY REYES, BMP, MG, GFR, ADIFF, DIMER, CBC, PBNP, TROPHS #### [address] [address] MCHC 33.0 G/dL Normal 32.0-36.0 [facility] Comment on above: Performed By: #### A ELY REYES, BMP, MG, GFR, ADIFF, DIMER, CBC, PBNP, TROPHS #### [address] [address] MCV (RBC) [Entitic vol] 87.4 fL Normal 81.0-100.0 [facility] Comment on above: Performed By: #### A ELY REYES, BMP, MG, GFR, ADIFF, DIMER, CBC, PBNP, TROPHS #### [address] [address] Platelet 240 10 3/mcL Normal 150-450 [facility] Comment on above: Performed By: #### A ELY REYES, BMP, MG, GFR, ADIFF, DIMER, CBC, PBNP, TROPHS #### [place] [place], [place] [address] Platelet mean volume (Bld) [Entitic vol] 7.8 fL Normal 6.4-10.5 [facility] Comment on above: Performed By: #### A ELY REYES, BMP, MG, GFR, ADIFF, DIMER, CBC, PBNP, TROPHS #### [place] [place], [place] [address] RBC 5.34 10 6/mcL Normal 4.50-6.00 [facility] Comment on above: Performed By: #### A ELY REYES, BMP, MG, GFR, ADIFF, DIMER, CBC, PBNP, TROPHS #### [address] [address] WBC 16.6 10 3/mcL High 4.5-10.8 [facility] Comment on above: Performed By: #### A ELY REYES, BMP, MG, GFR, ADIFF, DIMER, CBC, PBNP, TROPHS #### [address] [address] [address] ANGIOGRAPHY CHEST W/CONTR [place] 11-24-2024 CT ANGIOGRAPHY CHEST W/CONTRAST ORIGINAL EXAMINATION: CTA OF THE CHEST 11/24/2024 5:50 am TECHNIQUE: CTA of the chest was performed after the administration of intravenous contrast. Multiplanar reformatted images are provided for review. MIP images are provided for review. Automated exposure control, iterative reconstruction, and/or weight based adjustment of the mA/kV was utilized to reduce the radiation dose to as low as reasonably achievable. COMPARISON: Chest x-ray on 10/02/2024. CT chest on 10/25/2022 HISTORY: ORDERING SYSTEM PROVIDED HISTORY: Reason for Exam: Pulmonary embolism (PE) suspected, low to intermediate prob, positive D-dimer FINDINGS: Pulmonary Arteries: Pulmonary arteries are adequately opacified for evaluation. No evidence of intraluminal filling defect to suggest pulmonary embolism. Main pulmonary artery is dilated measuring 3.9 cm Mediastinum: Cardiomegaly is stable. There is no pericardial fluid. No atherosclerotic coronary artery calcification is present. Thoracic aorta is nonaneurysmal. There is no mediastinal mass or lymph node enlargement. Lungs/pleura: There is no lung infiltrate or edema. No pleural fluid or pneumothorax is present. Upper Abdomen: Liver has nodular contour consistent with cirrhosis. Spleen is enlarged measuring up to 19 cm. Soft Tissues/Bones: No acute bone or soft tissue abnormality. Bilateral gynecomastia is noted. IMPRESSION: 1. No evidence of pulmonary embolism or acute cardiopulmonary process. 2. Enlarged main pulmonary artery can be a sign of pulmonary hypertension 3. Stable cardiomegaly. 4. Cirrhosis with splenomegaly. Gynecomastia. Interpreted by: Darnell Molina MD Preliminary Report By: Darnell Molina MD Electronically signed By Darnell Molina MD Dictated Date: 11/24/2024 5:56:10 AM Prelim Date: 11/24/2024 6:01:11 AM Sign Date: 11/24/2024 6:01:11 AM Ordering Provider: CIRILO PATEL Interpreted by: Darnell Molina MD Preliminary Report By: Darnell Molina MD Electronically signed By Darnell Molina MD Dictated Date: 11/24/2024 5:56:10 AM Prelim Date: 11/24/2024 6:01:11 AM Sign Date: 11/24/2024 6:01:11 AM Ordering Provider: CIRILO PATEL [facility] CT HEAD OR BRAIN W/O CONTRAS [place] 11-24-2024 CT HEAD OR BRAIN W/O CONTRAST ORIGINAL EXAMINATION: CT OF THE HEAD WITHOUT CONTRAST 11/24/2024 5:48 am TECHNIQUE: CT of the head was performed without the administration of intravenous contrast. Automated exposure control, iterative reconstruction, and/or weight based adjustment of the mA/kV was utilized to reduce the radiation dose to as low as reasonably achievable. COMPARISON: CT head on 01/30/2024 HISTORY: ORDERING SYSTEM PROVIDED HISTORY: Reason for Exam: hallucinations FINDINGS: BRAIN/VENTRICLES: There is no acute intracranial hemorrhage, mass effect or midline shift. No abnormal extra-axial fluid collection. The curry-white differentiation is maintained without evidence of an acute infarct. There is no evidence of hydrocephalus. ORBITS: The visualized portion of the orbits demonstrate no acute abnormality. SINUSES: The visualized paranasal sinuses and mastoid air cells demonstrate no acute abnormality. SOFT TISSUES/SKULL: No acute abnormality of the visualized skull or soft tissues. IMPRESSION: No acute intracranial abnormality. Interpreted by: Darnell Molina MD Preliminary Report By: Darnell Molina MD Electronically signed By Darnell Molina MD Dictated Date: 11/24/2024 5:54:25 AM Prelim Date: 11/24/2024 5:55:14 AM Sign Date: 11/24/2024 5:55:14 AM Ordering Provider: CIRILO PATEL Interpreted by: Darnell Molina MD Preliminary Report By: Darnell Molina MD Electronically signed By Darnell Molina MD Dictated Date: 11/24/2024 5:54:25 AM Prelim Date: 11/24/2024 5:55:14 AM Sign Date: 11/24/2024 5:55:14 AM Ordering Provider: CIRILO PATEL Normal [facility] DIMERon 11-24-2024 D-Dimer 564 ng/mL D-DU High 0-230 [facility] Comment on above: Result Comment: Spec imen hemolyzed. Results may be affected. Results reported in D-DU ng/mL. Positive for D-dimer. A positive D-Dimer may occur in the following: DVT, PE, DIC, Trauma, Cancer, Sepsis, , Rheumatoid arthritis, Myocardial infarction and Cirrhosis. The presence of Rheumatoid Factor and HAMA (human mouse antibody) produces an overestimation of test results. The result of the D-Dimer test should be evaluated in the context of all the clinical and laboratory data available. In those instances where the laboratory result does not agree with the clinical evaluation, additional tests should be performed accordingly. If the D-Dimer result is used to exclude DVT or PE, the recommended cutoff value is less than 230 ng/mL. The D-Dimer result should not be used alone to rule in DVT/PE, but should be used in conjunction with a clinical pretest probability (PTP)assessment model to exclude venous thromboembolism (VTE) in patients suspected of deep venous thrombosis (DVT) and pulmonary embolism (PE). Performed By: Katya### A ERIC, MDW, BMP, MG, GFR, ADIFF, DIMER, CBC, PBNP, TROPHS #### [place] [address] [address] LABORATORYOrdered By: SYSTEM SYSTEM on 11-24-2024 Lactate [Moles/Vol] 1.0 mmol/L Normal 0.5 - 2. 2 mmol/L AH ADM SS Magnesium [Mass/Vol] 2.3 mg/dL Normal 1.6 - 2 .4 mg/dL AH ADM SS Natriuretic peptide.B prohormone N-Terminal IA [Mass/Vol] 4325 pg/mL High 0 - 900 pg/mL AH ADM SS Troponin I.cardiac DL <= 0.01 ng/mL [Mass/Vol] 8 ng/L Normal 0 - 54 ng/L AH ADM SS Comment on above: Interpretive Data: High Sensitive Troponin I Reference Ranges: Female: 0-34 ng/L Male: 0-54 ng/L Testing performed on [employer] analyzer using direct chemiluminescent technology. TSH Qn 0.855 mIU/mL Normal 0.550 - 4.780 mIU/mL AH ADM SS Lactate [Moles/Vol] 0.4 mmol/L Normal 0.4 - 2. 0 mmol/L AO ADM SS Basophils (Bld) [#/Vol] 0.1 103/mcL Normal 0.0 - 0.3 10^3/mcL AO Workflow SS Basophils/100 WBC (Bld) 0.4 % Normal 0.0 - 2.5 % AO Workflow SS Calcium [Mass/Vol] 8.7 mg/dL Normal 8.4 - 10. 2 mg/dL AO ADM SS Chloride [Moles/Vol] 99 mmol/L Normal 98 - 10 7 mmol/L AO ADM SS CO2 [Moles/Vol] 28 mmol/L Normal 22 - 29 mmol/L AO ADM SS Creatinine [Mass/Vol] 0.97 mg/dL Normal 0.67 - 1.17 mg/dL AO ADM SS Electrolyte Balance 6.0 mEq/L Normal 4.0 - 15 .0 mEq/L AO ADM SS Eosinophil, Absolute 0.0 103/mcL Normal 0.0 - 0 .7 10^3/mcL AO Workflow SS Eosinophils/100 WBC (Bld) 0.1 % Normal 0.0 - 6.0 % AO Workflow SS Erythrocyte distribution width (RBC) [Ratio] 15.5 % Normal 11.5 - 15.5 % AO Workflow SS Estimated Glomerular Filtration Rate 93 ml/min/1.73sqm Invalid Interpretation Code AO Chemistry S [...] race factor to calculate the eGFR results. Fibrin D-dimer DDU (PPP) [Mass/Vol] 564 ng/mL D-DU High 0 - 230 ng/mL D-DU AO [employer] SS Comment on above: Result Comment: Spec imen hemolyzed. Results may be affected. Results reported in D-DU ng/mL. Positive for D-dimer. A positive D-Dimer may occur in the following: DVT, PE, DIC, Trauma, Cancer, Sepsis, , Rheumatoid arthritis, Myocardial infarction and Cirrhosis. The presence of Rheumatoid Factor and HAMA (human mouse antibody) produces an overestimation of test results. Interpretive Data: T he result of the D-Dimer test should be evaluated in the context of all the clinical and laboratory data available. In those instances where the laboratory result does not agree with the clinical evaluation, additional tests should be performed accordingly. If the D-Dimer result is used to exclude DVT or PE, the recommended cutoff value is less than 230 ng/mL. The D-Dimer result should not be used alone to rule in DVT/PE, but should be used in conjunction with a clinical pretest probability (PTP)assessment model to exclude venous thromboembolism (VTE) in patients suspected of deep venous thrombosis (DVT) and pulmonary embolism (PE). Glucose [Mass/Vol] 130 mg/dL High 70 - 105 mg/dL AO ADM SS Hematocrit (Bld) [Volume fraction] 46.6 % Normal 40.0 - 52.0 % AO Workflow SS Hemoglobin (Bld) [Mass/Vol] 15.4 G/dL Normal 13.0 - 17.5 G/dL AO Workflow SS Lymphocytes (Bld) [#/Vol] 1.0 103/mcL Normal 0.9 - 4.3 10^3/mcL AO Workflow SS Lymphocytes/100 WBC (Bld) 5.8 % Low 20.0 - 40.0 % AO Workflow SS Magnesium [Mass/Vol] 1.6 mg/dL Low 1.8 - 2 .4 mg/dL AO ADM SS MCH (RBC) [Entitic mass] 28.8 pg Normal 27.0 - 33.0 pg AO Workflow SS MCHC 33.0 G/dL Normal 32.0 - 36.0 G/dL AO Workflow SS MCV (RBC) [Entitic vol] 87.4 fL Normal 81.0 - 100.0 fL AO Workflow SS Monocyte distribution width Auto (Bld) [Entitic vol] 19.29 1 Normal 0.00 - 20.00 AO Workflow SS Comment on above: Result Comment: For ED adult patients suspected of sepsis, MDW<=20.0 does not rule out sepsis or risk of sepsis Monocytes (Bld) [#/Vol] 1.9 103/mcL High 0.1 - 1.4 10^3/mcL AO Workflow SS Monocytes/100 WBC (Bld) 11.5 % Normal 2.0 - 13.0 % AO Workflow SS Natriuretic peptide.B prohormone N-Terminal [Mass/Vol] 5358 pg/mL High 0 - 125 pg/mL AO ADM SS Comment on above: Interpretive Data: N T-proBNP results of less than 300 pg/mL effectively rules out acute congestive heart failure with 99% negative predictive value. Neutrophils (Bld) [#/Vol] 13.6 103/mcL High 2.3 - 8.1 10^3/mcL AO Workflow SS Neutrophils/100 WBC (Bld) 82.2 % High 50.0 - 75.0 % AO Workflow SS Platelet mean volume (Bld) [Entitic vol] 7.8 fL Normal 6.4 - 10.5 fL AO Workflow SS Platelets (Bld) [#/Vol] 240 103/mcL Normal 150 - 450 10^3/mcL AO Workflow SS Potassium [Moles/Vol] 4.9 mmol/L Normal 3.5 - 5.1 mmol/L AO ADM SS RBC (Bld) [#/Vol] 5.34 106/mcL Normal 4.50 - 6.0 0 10^6/mcL AO Workflow SS Sodium [Moles/Vol] 133 mmol/L Low 136 - 145 mmol/L AO ADM SS Troponin I.cardiac DL <= 0.01 ng/mL [Mass/Vol] 19 ng/L Normal 0 - 76 ng/L AO ADM SS Comment on above: Interpretive Data: H igh Sensitive Troponin I Reference Ranges: Female: 0-51 ng/L Male: 0-76 ng/L Testing performed on [employer] using a homogeneous sandwich chemiluminescent immunoassay based on [employer] technology. Urea nitrogen [Mass/Vol] 11 mg/dL Normal 7 - 18 mg/dL AO ADM SS Urea nitrogen/Creatinine [Mass ratio] 11 ratio Normal 7 - 27 ratio AO ADM SS WBC (Bld) [#/Vol] 16.6 103/mcL High 4.5 - 10.8 10^3/mcL AO Workflow SS LABORATORYOrdered By: Jey Israel on 11-24-2024 ACINETOBACTER CALCOACETICUS-BAUMANNII COMPLEX DNA:PRTHR:PT:BLD.POS GROWTH:ORD:NON-PROBE.AM P.TAR Not Detected *NA* (11/24/24 5:08 AM) Invalid Interpretation Code Not Detected AH Auto Microbiology GL SS BACTERIAL METHICILLIN RESISTANCE MECA+MECC GENES+SCCMEC+ORFX JUNCTION:PRTHR:PT:ISOLA TE/SPECIMEN:ORD:MOLGEN Not Detected *NA* (11/24/24 5:08 AM) Invalid Interpretation Code Not Detected AH Auto Microbiology GL SS BACTEROIDES FRAGILIS DNA:PRTHR:PT:BLD.POS GROWTH:ORD:NON-PROBE.AM P.TAR Not Detected *NA* (11/24/24 5:08 AM) Invalid Interpretation Code Not Detected AH Auto Microbiology GL SS BCID Comment See Comment 1 (11/24/24 5:08 AM) Normal [facility] GL SS Comment on above: Interpretive Data: A ntimicrobial resistance can occur via multiple mechanisms. A Not Detected result for antimicrobial resistance gene(s) does not indicate antimicrobial susceptibility. Culture identification and susceptibility results to follow. All BIOFIRE BCID2 Panel results are intended to be interpreted in conjunction with the Gram stain results. In some cases, the Gram stain result and the BIOFIRE BCID2 Panel result may be discrepant. In these cases, the BIOFIRE BCID2 Panel results should be confirmed by culture or other laboratory, epidemiological, or clinical findings. Blood culture media may contain non-viable organisms and/or nucleic acids that may lead to false positive BIOFIRE BCID2 Panel results. Typically, these false positives present with more than one positive result from the BIOFIRE BCID2 Panel. If BCID panel was negative (Not Detected) for all targets, this does not exclude a blood stream infection. Our blood culture system detected growth. Culture identification and susceptibility testing (if appropriate) to follow. C. albicans DNA ROSE+non-probe Ql (Pos bld culture) Not Detected *NA* (11/24/24 5:08 AM) Invalid Interpretation Code Not Detected [facility] GL SS C. glabrata DNA ROSE+non-probe Ql (Pos bld culture) Not Detected *NA* (11/24/24 5:08 AM) Invalid Interpretation Code Not Detected [facility] GL SS C. krusei DNA ROSE+non-probe Ql (Pos bld culture) Not Detected *NA* (11/24/24 5:08 AM) Invalid Interpretation Code Not Detected [facility] GL SS C. parapsilosis DNA ROSE+non-probe Ql (Pos bld culture) Not Detected *NA* (11/24/24 5:08 AM) Invalid Interpretation Code Not Detected [facility] GL SS C. tropicalis DNA ROSE+non-probe Ql (Pos bld culture) Not Detected *NA* (11/24/24 5:08 AM) Invalid Interpretation Code Not Detected [facility] GL SS MOIZ AURIS DNA:PRTHR:PT:BLD.POS GROWTH:ORD:NON-PROBE.AM P.TAR Not Detected *NA* (11/24/24 5:08 AM) Invalid Interpretation Code Not Detected [facility] GL SS Carbapenem resistance viji OXA-48-like gene Molgen Ql (Islt/Spec) Not Applicable *NA* (11/24/24 5:08 AM) Invalid Interpretation Code Not Detected [facility] GL SS Carbapenem resistance blaIMP gene Molgen Ql (Islt/Spec) Not Applicable *NA* (11/24/24 5:08 AM) Invalid Interpretation Code Not Detected [facility] GL SS Carbapenem resistance blaKPC gene Molgen Ql (Islt/Spec) Not Applicable *NA* (11/24/24 5:08 AM) Invalid Interpretation Code Not Detected [facility] GL SS Carbapenem resistance blaNDM gene Molgen Ql (Islt/Spec) Not Applicable *NA* (11/24/24 5:08 AM) Invalid Interpretation Code Not Detected [facility] GL SS Carbapenem resistance blaVIM gene Molgen Ql (Islt/Spec) Not Applicable *NA* (11/24/24 5:08 AM) Invalid Interpretation Code Not Detected [facility] GL SS Cephalosporin resistance viji(CTX-M) gene Molgen Ql (Islt/Spec) Not Applicable *NA* (11/24/24 5:08 AM) Invalid Interpretation Code Not Detected [facility] GL SS Colistin resistance mcr-1 gene Molgen Ql (Islt/Spec) Not Applicable *NA* (11/24/24 5:08 AM) Invalid Interpretation Code Not Detected [facility] GL SS CRYPTOCOCCUS GATTII+NEOFORMANS DNA:PRTHR:PT:BLD.POS GROWTH:ORD:NON-PROBE.AM P.TAR Not Detected *NA* (11/24/24 5:08 AM) Invalid Interpretation Code Not Detected [facility] GL SS E. cloacae complex DNA ROSE+non-probe Ql (Pos bld culture) Not Detected *NA* (11/24/24 5:08 AM) Invalid Interpretation Code Not Detected [facility] GL SS E. coli DNA ROSE+non-probe Ql (Pos bld culture) Not Detected *NA* (11/24/24 5:08 AM) Invalid Interpretation Code Not Detected [facility] GL SS ENTEROBACTERALES DNA:PRTHR:PT:BLD.POS GROWTH:ORD:NON-PROBE.AM P.TAR Not Detected *NA* (11/24/24 5:08 AM) Invalid Interpretation Code Not Detected [facility] GL SS ENTEROCOCCUS FAECALIS DNA:PRTHR:PT:BLD.POS GROWTH:ORD:NON-PROBE.AM P.TAR Not Detected *NA* (11/24/24 5:08 AM) Invalid Interpretation Code Not Detected [facility] GL SS ENTEROCOCCUS FAECIUM DNA:PRTHR:PT:BLD.POS GROWTH:ORD:NON-PROBE.AM P.TAR Not Detected *NA* (11/24/24 5:08 AM) Invalid Interpretation Code Not Detected [facility] GL SS H. influenzae DNA ROSE+non-probe Ql (Pos bld culture) Not Detected *NA* (11/24/24 5:08 AM) Invalid Interpretation Code Not Detected [facility] GL SS K. oxytoca DNA ROSE+non-probe Ql (Pos bld culture) Not Detected *NA* (11/24/24 5:08 AM) Invalid Interpretation Code Not Detected [facility] GL SS KLEBSIELLA AEROGENES DNA:PRTHR:PT:BLD.POS GROWTH:ORD:NON-PROBE.AM P.TAR Not Detected *NA* (11/24/24 5:08 AM) Invalid Interpretation Code Not Detected [facility] GL SS KLEBSIELLA PNEUMONIAE+KLEBSIELLA VARIICOLA+KLEBSIELLA QUASIPNEUMONIAE DNA:PRTHR:PT:BLD.POS GROWTH:ORD:NON-PROBE.AM P.TAR Not Detected *NA* (11/24/24 5:08 AM) Invalid Interpretation Code Not Detected [facility] GL SS L. monocytogenes DNA ROSE+non-probe Ql (Pos bld culture) Not Detected *NA* (11/24/24 5:08 AM) Invalid Interpretation Code Not Detected [facility] GL SS Methicillin resistance mecA+mecC genes Molgen Ql (Islt/Spec) Not Applicable *NA* (11/24/24 5:08 AM) Invalid Interpretation Code Not Detected [facility] GL SS N. meningitidis DNA ROSE+non-probe Ql (Pos bld culture) Not Detected *NA* (11/24/24 5:08 AM) Invalid Interpretation Code Not Detected [facility] GL SS P. aeruginosa DNA ROSE+non-probe Ql (Pos bld culture) Not Detected *NA* (11/24/24 5:08 AM) Invalid Interpretation Code Not Detected [facility] GL SS Proteus sp DNA ROSE+non-probe Ql (Pos bld culture) Not Detected *NA* (11/24/24 5:08 AM) Invalid Interpretation Code Not Detected [facility] GL SS S. agalactiae DNA ROSE+non-probe Ql (Pos bld culture) Not Detected *NA* (11/24/24 5:08 AM) Invalid Interpretation Code Not Detected [facility] GL SS S. aureus DNA ROSE+non-probe Ql (Pos bld culture) Detected 2 *ABN* (11/24/24 5:08 AM) Invalid Interpretation Code Not Detected [facility] GL SS Comment on above: Interpretive Data: I f Staphylococcus aureus is Detected, an Infectious Disease physician consult is required on identification. S. marcescens DNA ROSE+non-probe Ql (Pos bld culture) Not Detected *NA* (11/24/24 5:08 AM) Invalid Interpretation Code Not Detected [facility] GL SS S. pneumoniae DNA ROSE+non-probe Ql (Pos bld culture) Not Detected *NA* (11/24/24 5:08 AM) Invalid Interpretation Code Not Detected [facility] GL SS S. pyogenes DNA ROSE+non-probe Ql (Pos bld culture) Not Detected *NA* (11/24/24 5:08 AM) Invalid Interpretation Code Not Detected [facility] GL SS SALMONELLA SP DNA:PRTHR:PT:BLD.POS GROWTH:ORD:NON-PROBE.AM P.TAR Not Detected *NA* (11/24/24 5:08 AM) Invalid Interpretation Code Not Detected [facility] GL SS STAPHYLOCOCCUS EPIDERMIDIS DNA:PRTHR:PT:BLD.POS GROWTH:ORD:NON-PROBE.AM P.TAR Not Detected *NA* (11/24/24 5:08 AM) Invalid Interpretation Code Not Detected [facility] GL SS STAPHYLOCOCCUS LUGDUNENSIS DNA:PRTHR:PT:BLD.POS GROWTH:ORD:NON-PROBE.AM P.TAR Not Detected *NA* (11/24/24 5:08 AM) Invalid Interpretation Code Not Detected [facility] GL SS Staphylococcus sp DNA ROES+non-probe Ql (Pos bld culture) Detected *ABN* (11/24/24 5:08 AM) Invalid Interpretation Code Not Detected [facility] GL SS STENOTROPHOMONAS MALTOPHILIA DNA:PRTHR:PT:BLD.POS GROWTH:ORD:NON-PROBE.AM P.TAR Not Detected *NA* (11/24/24 5:08 AM) Invalid Interpretation Code Not Detected [facility] GL SS Streptococcus sp DNA ROSE+non-probe Ql (Pos bld culture) Not Detected *NA* (11/24/24 5:08 AM) Invalid Interpretation Code Not Detected [facility] GL SS Vancomycin resistance eFli + vanB genes Molgen Ql (Islt/Spec) Not Applicable *NA* (11/24/24 5:08 AM) Invalid Interpretation Code Not Detected [facility] GL SS LACon 11-24-2024 Lactic Acid Lvl 1.0 mmol/L Normal 0.5-2.2 [facility] Comment on above: Performed By: #### A ERIC, CBC, BMP, ADIFF, GFR #### [address] [address] Lactic Acid Lvl 0.4 mmol/L Normal 0.4-2.0 [facility] Comment on above: Order Comment: order ed secondary to Sepsis Alert Performed By: #### A ERIC, MDW, BMP, MG, GFR, ADIFF, DIMER, CBC, PBNP, TROPHS #### [id number] [place], [place] [address] MGon 11-24-2024 Magnesium [Mass/Vol] 2.3 mg/dL Normal 1.6-2.4 [facility] Comment on above: Performed By: #### A ERIC, CBC, BMP, ADIFF, GFR #### [address] [address] Magnesium [Mass/Vol] 1.6 mg/dL Low 1.8-2.4 [facility] Comment on above: Performed By: #### A MD ERICW, BMP, MG, GFR, ADIFF, DIMER, CBC, PBNP, TROPHS #### [address] [address] No Panel Informationon 11-24 Microscopic examination of blood, culture Culture has been received in lab and is no growth to date. Routine cultures are held for 5 days. [facility] PBNPon 11-24-2024 Natriuretic peptide B (Bld) [Mass/Vol] 4325 pg/mL High 0-900 [facility] Comment on above: Performed By: #### A ERIC, CBC, BMP, ADIFF, GFR #### [address] [address] Natriuretic peptide B (Bld) [Mass/Vol] 5358 pg/mL High 0-125 [facility] Comment on above: Result Comment: NT-p roBNP results of less than 300 pg/mL effectively rules out acute congestive heart failure with 99% negative predictive value. Performed By: #### A ERIC, MDW, BMP, MG, GFR, ADIFF, DIMER, CBC, PBNP, TROPHS #### [address] [address] TROPHSon 11-24-2024 High Sensitivity Troponin I 8 ng/L Normal 0-54 [facility] Comment on above: Result Comment: High Sensitive Troponin I Reference Ranges: Female: 0-34 ng/L Male: 0-54 ng/L Testing performed on [employer] IM analyzer using direct chemiluminescent technology. Performed By: #### A ERIC, CBC, BMP, ADIFF, GFR #### [place] [id number] High Sensitivity Troponin I 19 ng/L Normal 0-76 [facility] Comment on above: Result Comment: High Sensitive Troponin I Reference Ranges: Female: 0-51 ng/L Male: 0-76 ng/L Testing performed on [employer] using a homogeneous sandwich chemiluminescent immunoassay based on LOCI technology. Performed By: #### A ERIC, MDW, BMP, MG, GFR, ADIFF, DIMER, CBC, PBNP, TROPHS #### [address] [address] TSHon 11-24-2024 TSH 0.855 mIU/mL Normal 0.550-4.780 [facility] Comment on above: Performed By: #### A ERIC, CBC, BMP, ADIFF, GFR #### [place] [id number] XR CHEST 1 VIEWon 11-24-2024 XR CHEST 1 VIEW ORIGINAL EXAMINATION: ONE XRAY VIEW OF THE CHEST 11/24/2024 2:01 pm COMPARISON: October 02, 2024 HISTORY: ORDERING SYSTEM PROVIDED HISTORY: Reason for Exam: SOB FINDINGS: Mild cardiomegaly is present without vascular congestion. No infiltrate or pleural fluid is visible. No acute osseous finding. IMPRESSION: Mild cardiomegaly, no acute process. Interpreted by: Melissa Santos MD Preliminary Report By: Melissa Santos MD Electronically signed By Melissa Santos MD Dictated Date: 11/24/2024 2:02:59 PM Prelim Date: 11/24/2024 2:03:25 PM Sign Date: 11/24/2024 2:03:25 PM Ordering Provider: KARLENE BARCENAS Interpreted by: Melissa Santos MD Preliminary Report By: Melissa Santos MD Electronically signed By Melissa Santos MD Dictated Date: 11/24/2024 2:02:59 PM Prelim Date: 11/24/2024 2:03:25 PM Sign Date: 11/24/2024 2:03:25 PM Ordering Provider: KARLENE BARCENAS [facility] Anion gap in Serum or Plasma Ordered By: Dolly Marino on 11-06-2024 Anion gap [Moles/Vol] 9 mmol/L 10-10 [facility] BUN/creatinine ratioOrdered By: Dolly Marino on 11-06-2024 Urea nitrogen/Creatinine [Mass ratio] 14.9 mg/mg 03-17 [facility] Basic Metabolic Profile (BMP )on 11-06-2024 BUN/CRE 14.9 RATIO Normal 03-17 [facility] Comment on above: Order Comment: 210 Performed By: #### L 500.2500 #### [facility] [address] [place], [address] Calcium [Mass/Vol] 9.2 mg/dL Normal 7.6-11.0 [facility] Comment on above: Order Comment: 210 Performed By: #### L 500.2500 #### [facility] [address] [place], [address] Chloride [Moles/Vol] 100 mmol/L Normal 98-[address] [facility] Comment on above: Order Comment: 210 Performed By: #### L 500.2500 #### [facility] [address] [place], [address] CO2 [Moles/Vol] 27.9 mmol/L Normal 21.0-32.0 [facility] Comment on above: Order Comment: 210 Performed By: #### L 500.2500 #### [facility] [address] [place], [address] Creatinine [Mass/Vol] 0.87 mg/dL Normal 0.70-1.20 [facility] Comment on above: Order Comment: 210 Performed By: #### L 500.2500 #### [facility] [address] [place], [address] GAP 9 Normal 5-15 [facility] Comment on above: Order Comment: 210 Performed By: #### L 500.2500 #### [facility] [address] [place], [address] GFR/1.73 sq M.predicted among non-blacks MDRD (S/P/Bld) [Vol rate/Area] 103 mL/min/{1.73_m2} Normal >60 [facility] Comment on above: Order Comment: 210 Result Comment: mL/m in/1.73m2 CKD-EPI Creatinine Equation (2020) Performed By: #### L 500.2500 #### [facility] [address] [place], [address] Glucose [Mass/Vol] 104 mg/dL High 70-99 [facility] Comment on above: Order Comment: 210 Performed By: #### L 500.2500 #### [facility] [address] [place], [address] Potassium [Moles/Vol] 4.4 mmol/L Normal 3.3-5.1 [facility] Comment on above: Order Comment: 210 Performed By: #### L 500.2500 #### [facility] [address] [place], [address] Sodium [Moles/Vol] 136 mmol/L Normal 133-145 [facility] Comment on above: Order Comment: 210 Performed By: #### L 500.2500 #### [facility] [address] [place], [address] Urea nitrogen [Mass/Vol] 13 mg/dL Normal 4-19 [facility] Comment on above: Order Comment: 210 Performed By: #### L 500.2500 #### [facility] [address] [place], [address] Carbon dioxide, total [Moles /volume] in Central venous bloodOrdered By: Dolly Marino on 11-06-2024 CO2 [Moles/Vol] 27.9 mmol/L 21.0-32.0 [facility] Chloride assayOrdered By: Darrin Marino on 11-06-2024 Chloride [Moles/Vol] 100 mmol/L 98-[address] [facility] Glomerular filtration rate ( GFR) estimation/1.73 sq m using serum, plasma, or whole bOrdered By: Dolly Marino on 11-06-2024 GFR/1.73 sq M.predicted among non-blacks MDRD (S/P/Bld) [Vol rate/Area] 103 mL/min/{1.73_m2} >60 [facility] Comment on above: mL/min/1.73m2 CKD-EP I Creatinine Equation (2020) Potassium measurement (mass/ volume)Ordered By: Dolly Marino on 11-06-2024 Potassium (Unsp spec) [Mass/Vol] 4.4 mmol/L 3.3-5.1 [facility] Serum creatinine measurement (mass/volume)Ordered By: Dolly Marino on 11-06-2024 Creatinine [Mass/Vol] 0.87 mg/dL 0.70-1.20 [facility] Serum glucose measurement (m ass/volume)Ordered By: Dolly Marino on 11-06-2024 Glucose [Mass/Vol] 104 mg/dL High 70-99 [facility] Serum or plasma calcium scott urement (mass/volume)Ordered By: Dolly Marino on 11-06-2024 Calcium [Mass/Vol] 9.2 mg/dL 7.6-11.0 [facility] Serum or plasma urea nitroge n measurement (mass/volume)Ordered By: Dolly Marino on 11-06-2024 Urea nitrogen [Mass/Vol] 13 mg/dL 4-19 [facility] Sodium levelOrdered By: Missael Marino on 11-06-2024 Sodium [Moles/Vol] 136 mmol/L 133-145 [facility] Absolute lymphocyte countOrd ered By: Dolly Marino on 11-04-2024 Lymphocytes Auto (Unsp spec) [#/Vol] 1.05 10*3/uL 0.83-4.51 [facility] Absolute neutrophil countOrd ered By: Dolly Marino on 11-04-2024 Neutrophils (Bld) [#/Vol] 2.8 10*3/uL 2.0-7.7 [facility] Anion gap in Serum or Plasma Ordered By: Dolly Marino on 11-04-2024 Anion gap [Moles/Vol] 10 mmol/L 5- [facility] Automated lymphocyte count a s percentage of total leukocytesOrdered By: Dolly Marino on 11-04-2024 Lymphocytes/100 WBC Auto (Unsp spec) 23.5 % - [facility] BUN/creatinine ratioOrdered By: Dolly Marino on 11-04-2024 Urea nitrogen/Creatinine [Mass ratio] 12.7 mg/mg - [facility] Basic Metabolic Profile (BMP )on 11-04-2024 BUN/CRE 12.7 RATIO Normal - [facility] Comment on above: Order Comment: 210.1 Performed By: #### L 500.2500, L100.0100, L501.5200 #### [facility] [address] [place], [address] Calcium [Mass/Vol] 9.0 mg/dL Normal 7.6-11.0 [facility] Comment on above: Order Comment: 210.1 Performed By: #### L 500.2500, L100.0100, L501.5200 #### [facility] [address] [place], [address] Chloride [Moles/Vol] 101 mmol/L Normal 98-[address] [facility] Comment on above: Order Comment: 210.1 Performed By: #### L 500.2500, L100.0100, L501.5200 #### [facility] [address] [place], [address] CO2 [Moles/Vol] 28.1 mmol/L Normal 21.0-32.0 [facility] Comment on above: Order Comment: 210.1 Performed By: #### L 500.2500, L100.0100, [id number] #### [facility] [address] [place], [address] Creatinine [Mass/Vol] 0.80 mg/dL Normal 0.70-1.20 [facility] Comment on above: Order Comment: 210.1 Performed By: #### L 500.2500, L100.0100, L501.5200 #### [facility] [address] [place], [address] GAP 10 Normal 5-15 [facility] Comment on above: Order Comment: 210.1 Performed By: #### L 500.2500, L100.0100, L501.5200 #### [facility] [address] [place], [address] GFR/1.73 sq M.predicted among non-blacks MDRD (S/P/Bld) [Vol rate/Area] 106 mL/min/{1.73_m2} Normal >60 [facility] Comment on above: Order Comment: 210.1 Result Comment: mL/m in/1.73m2 CKD-EPI Creatinine Equation (2020) Performed By: #### L 500.2500, L100.0100, L501.5200 #### [facility] [address] [place], [address] Glucose [Mass/Vol] 96 mg/dL Normal 70-99 [facility] Comment on above: Order Comment: 210.1 Performed By: #### L 500.2500, L100.0100, L501.5200 #### [facility] [address] [place], [address] Potassium [Moles/Vol] 4.2 mmol/L Normal 3.3-5.1 [facility] Comment on above: Order Comment: 210.1 Result Comment: Hemo lysis present, Results??could be affected. ?? Performed By: #### L 500.2500, L100.0100, L501.5200 #### [facility] [address] [place], [address] Sodium [Moles/Vol] 139 mmol/L Normal 133-145 [facility] Comment on above: Order Comment: 210.1 Performed By: #### L 500.2500, L100.0100, L501.5200 #### [facility] [address] [place], [address] Urea nitrogen [Mass/Vol] 10 mg/dL Normal 4-19 [facility] Comment on above: Order Comment: 210.1 Performed By: #### L 500.2500, L100.0100, L501.5200 #### [facility] [address] [place], [address] Basophil percentageOrdered B y: Dolly Marino on 11-04-2024 Basophils/100 WBC (Bld) 0.9 % 0-1 [facility] CBC W/Diff, Automatedon 06-0 Absolute Lymph 1.05 X10 3/uL Normal 0.83-4.51 [facility] Comment on above: Order Comment: 210.1 Performed By: #### L 500.2500, L100.0100, L501.5200 #### [facility] [address] [place], [address] Absolute Neut 2.8 X10 3/uL Normal 2.0-7.7 [facility] Comment on above: Order Comment: 210.1 Performed By: #### L 500.2500, L100.0100, [id number] #### [facility] [address] [place], [address] Basophils/100 WBC (Bld) 0.9 % Normal 0-1 [facility] Comment on above: Order Comment: 210.1 Performed By: #### L 500.2500, L100.0100, L501.5200 #### [facility] [address] [place], [address] Eosinophils/100 WBC (Bld) 1.6 % Normal 0-5 [facility] Comment on above: Order Comment: 210.1 Performed By: #### L 500.2500, L100.0100, L501.5200 #### [facility] [address] [place], [address] Erythrocyte distribution width (RBC) [Ratio] 15.8 % High 11.6-14.6 [facility] Comment on above: Order Comment: 210.1 Performed By: #### L 500.2500, L100.0100, L501.5200 #### [facility] [address] [place], [address] Hematocrit (Bld) [Volume fraction] 41.8 % Normal 40-54 [facility] Comment on above: Order Comment: 210.1 Performed By: #### L 500.2500, L100.0100, L501.5200 #### [facility] [address] [place], [address] Hemoglobin (Bld) [Mass/Vol] 13.1 g/dL Normal 13.0-16.5 [facility] Comment on above: Order Comment: 210.1 Performed By: #### L 500.2500, L100.0100, L501.5200 #### [facility] [address] [place], [address] IG% 0.400 Normal 0.0-0.9 [facility] Comment on above: Order Comment: 210.1 Result Comment: IG% - Immature Granulocytes (promyelocytes, myelocytes and metamyelocytes) > 1% indicates that a LEFT SHIFT is Present. Performed By: #### L 500.2500, L100.0100, L501.5200 #### [facility] [address] [place], [address] Lymphocytes/100 WBC (Bld) 23.5 % Normal 19-41 [facility] Comment on above: Order Comment: 210.1 Performed By: #### L 500.2500, L100.0100, L501.5200 #### [facility] [address] [place], [address] MCH (RBC) [Entitic mass] 28.6 pg Normal 27.0-32.0 [facility] Comment on above: Order Comment: 210.1 Performed By: #### L 500.2500, L100.0100, L501.5200 #### [facility] [address] [place], [address] MCHC (RBC) [Mass/Vol] 31.3 g/dL Low 32-36 [facility] Comment on above: Order Comment: 210.1 Performed By: #### L 500.2500, L100.0100, L501.5200 #### [facility] [address] [place], [address] MCV (RBC) [Entitic vol] 91.3 fL Normal 80-94 [facility] Comment on above: Order Comment: 210.1 Performed By: #### L 500.2500, L100.0100, L501.5200 #### [facility] [address] [place], [address] Monocytes/100 WBC (Bld) 11.4 % High 0-10 [facility] Comment on above: Order Comment: 210.1 Performed By: #### L 500.2500, L100.0100, L501.5200 #### [facility] [address] [place], [address] Neutrophils/100 WBC (Bld) 62.2 % Normal 47-70 [facility] Comment on above: Order Comment: 210.1 Performed By: #### L 500.2500, L100.0100, L501.5200 #### [facility] [address] [place], [address] Nucleated RBC (Bld) [#/Vol] 0 10*3/uL Normal 0-5 [facility] Comment on above: Order Comment: 210.1 Performed By: #### L 500.2500, L100.0100, L501.5200 #### [facility] [address] [place], [address] Platelet mean volume (Bld) [Entitic vol] 9.7 fL Normal 6.2-12.0 [facility] Comment on above: Order Comment: 210.1 Performed By: #### L 500.2500, L100.0100, L501.5200 #### [facility] [address] [place], [address] Platelets (Bld) [#/Vol] 185 10*3/uL Normal 150-450 [facility] Comment on above: Order Comment: 210.1 Performed By: #### L 500.2500, L100.0100, L501.5200 #### [facility] [address] [place], [address] RBC (Bld) [#/Vol] 4.58 10*6/uL Low 4.6-6.2 [facility] Comment on above: Order Comment: 210.1 Performed By: #### L 500.2500, L100.0100, L501.5200 #### [facility] [address] [place], [address] RDW SD 53.2 fl High 35.1-43.9 [facility] Comment on above: Order Comment: 210.1 Performed By: #### L 500.2500, L100.0100, L501.5200 #### [facility] [address] [place], [address] WBC (Bld) [#/Vol] 4.5 10*3/uL Normal 4.4-11.0 [facility] Comment on above: Order Comment: 210.1 Performed By: #### L 500.2500, L100.0100, L501.5200 #### [facility] [place], [address] Carbon dioxide, total [Moles /volume] in Central venous bloodOrdered By: Dolly Marino on 11-04-2024 CO2 [Moles/Vol] 28.1 mmol/L 21.0-32.0 [facility] Chloride assayOrdered By: Darrin Marino on 11-04-2024 Chloride [Moles/Vol] 101 mmol/L 98-[address] [facility] Eosinophil percentageOrdered By: Dolly Marino on 11-04-2024 Eosinophils/100 WBC (Bld) 1.6 % 0-5 [facility] Erythrocyte distribution wid th ratioOrdered By: Dolly Marino on 11-04-2024 Erythrocyte distribution width (RBC) [Ratio] 15.8 % High 11.6-14.6 [facility] Erythrocyte distribution wid th standard deviationOrdered By: Dolly Marino on 11-04-2024 Erythrocyte distribution width (RBC) [Ratio] 53.2 fl High 35.1-43.9 [facility] Glomerular filtration rate ( GFR) estimation/1.73 sq m using serum, plasma, or whole bOrdered By: Dolly Marino on 11-04-2024 GFR/1.73 sq M.predicted among non-blacks MDRD (S/P/Bld) [Vol rate/Area] 106 mL/min/{1.73_m2} >60 [facility] Comment on above: mL/min/1.73m2 CKD-EP I Creatinine Equation (2020) Hematocrit Auto (Bld) [Volum e fraction]Ordered By: Dolly Marino on 11-04-2024 Hematocrit (Bld) [Volume fraction] 41.8 % 40-54 [facility] Hemoglobin measurementOrdere d By: Dolly Marino on 11-04-2024 Hemoglobin (Bld) [Mass/Vol] 13.1 g/dL 13.0-16.5 [facility] Immature granulocytes/100 WB C Auto (Bld)Ordered By: Dolly Marino on 11-04-2024 Immature granulocytes/100 WBC (Bld) 0.400 % 0.0-0.9 [facility] Comment on above: IG% - Immature Granu locytes (promyelocytes, myelocytes and metamyelocytes) > 1% indicates that a LEFT SHIFT is Present. MCV (mean corpuscular volume ) determinationOrdered By: Dolly Marino on 11-04-2024 MCV (RBC) [Entitic vol] 91.3 fL 80-94 [facility] Magnesiumon 11-04-2024 Magnesium [Mass/Vol] 2.2 mg/dL Normal 1.5-2.[address] [facility] Comment on above: Order Comment: 210.1 Performed By: #### L 500.2500, L100.0100, L501.5200 #### [facility] [address] [place], [address] Magnesium measurement (mass/ volume)Ordered By: Dolly Marino on 11-04-2024 Magnesium (Unsp spec) [Mass/Vol] 2.2 mg/dL 1.5-2.2 [facility] Mean corpuscular hemoglobin (MCH) determinationOrdered By: Dolly Marino on 11-04-2024 MCH (RBC) [Entitic mass] 28.6 pg 27.0-32.0 [facility] Mean corpuscular hemoglobin concentration (MCHC) determinationOrdered By: Dolly Marino on 11-04-2024 MCHC (RBC) [Mass/Vol] 31.3 g/dL Low 32-36 [facility] Mean platelet volume determi nationOrdered By: Dolly Marino on 11-04-2024 Platelet mean volume (Bld) [Entitic vol] 9.7 fL 6.2-12.0 [facility] Monocyte percentageOrdered B y: Dolly Marino on 11-04-2024 Monocytes/100 WBC (Bld) 11.4 % High 0-10 [facility] Neutrophil percentageOrdered By: Dolly Marino on 11-04-2024 Neutrophils/100 WBC (Bld) 62.2 % 47-70 [facility] Nucleated red blood cell per centageOrdered By: Dolly Marino on 11-04-2024 Nucleated RBC/100 WBC (Bld) [Ratio] 0 % 0-5 [facility] Platelet countOrdered By: Darrin Marino on 11-04-2024 Platelets (Bld) [#/Vol] 185 10*3/uL 150-450 [facility] Potassium measurement (mass/ volume)Ordered By: Dolly Marino on 11-04-2024 Potassium (Unsp spec) [Mass/Vol] 4.2 mmol/L 3.3-5.1 [facility] Comment on above: Hemolysis present, R esults could be affected. RBC Auto (Bld) [#/Vol]Ordere d By: Dolly Marino on 11-04-2024 RBC (Bld) [#/Vol] 4.58 10*6/uL Low 4.6-6.2 [facility] Serum creatinine measurement (mass/volume)Ordered By: Dolly Marino on 11-04-2024 Creatinine [Mass/Vol] 0.80 mg/dL 0.70-1.20 [facility] Serum glucose measurement (m ass/volume)Ordered By: Dolly Marino on 11-04-2024 Glucose [Mass/Vol] 96 mg/dL 70-99 [facility] Serum or plasma calcium scott urement (mass/volume)Ordered By: Dolly Marino on 11-04-2024 Calcium [Mass/Vol] 9.0 mg/dL 7.6-11.0 [facility] Serum or plasma urea nitroge n measurement (mass/volume)Ordered By: Dolly Marino on 11-04-2024 Urea nitrogen [Mass/Vol] 10 mg/dL 4-19 [facility] Sodium levelOrdered By: Missael Marino on 11-04-2024 Sodium [Moles/Vol] 139 mmol/L 133-145 [facility] White blood cell (WBC) count Ordered By: Dolly Marino on 11-04-2024 WBC (Bld) [#/Vol] 4.5 10*3/uL 4.4-11.0 [facility] Calculated very low density lipoprotein (VLDL) cholesterol measurementOrdered By: Dolly Marino on 10-30-2024 Calculated very low density lipoprotein (VLDL) cholesterol measurement 26 mg/dL 5-40 [facility] Hemoglobin A1con 10-30-2024 HbA1c (Bld) [Mass fraction] 5.8 % High <=5.6 [facility] Comment on above: Result Comment: Norm al < 5.7 % Prediabetic 5.7 - 6.4 % Diabetic >or= 6.5 % Please note range changes. Performed By: #### L 501.9985, L500.4100 #### [facility] [address] [place], [place], [id number] Hemoglobin A1c percentageOrd ered By: Dolly Marino on 10-30-2024 HbA1c (Bld) [Mass fraction] 5.8 % High <5.7 [facility] Comment on above: Normal < 5.7 % Predi abetic 5.7 - 6.4 % Diabetic >or= 6.5 % Please note range changes. LDL calc ser/plasOrdered By: Dolly Marino on 10-30-2024 Cholesterol in LDL [Mass/Vol] 34 mg/dL [facility] Comment on above: Tmlikwuiyf=729-237 m g/dL & Higher Mntw=498 mg/dL or greater Lipid Profileon 10-30-2024 CHOL:HDL 3.64 Normal [facility] Comment on above: Performed By: #### L 501.9985, L500.4100 #### [facility] [address] [place], [place], [id number] [phone] Cholesterol [Mass/Vol] 83 mg/dL Normal <=200 [facility] Comment on above: Result Comment: Chol esterol level, Desirable <200 mg/dL Borderline high cholesterol 200-239 mg/dL High cholesterol >=240 mg/dL Recommendations of the NCEP Adult Treatment Panel for the following risk-cutoff thresholds for the [place] population. Performed By: #### L 501.9985, L500.4100 #### [facility] [address] [place], [place], [id number] Cholesterol in HDL [Mass/Vol] 23 mg/dL Low [facility] Comment on above: Result Comment: Fern onal Cholesterol Education Program (NCEP) guidelines: <40 mg/dL: Low HDL-cholesterol (major risk factor for CHD) >= 60 mg/dL: High HDL-cholesterol (negative risk factor for CHD) HDL-cholesterol is affected by a number of factors, e.g. smoking, exercise, hormones, sex and age. Performed By: #### L 501.9985, L500.4100 #### [facility] [address] [place], [address] Cholesterol in LDL [Mass/Vol] 34 mg/dL Normal [facility] Comment on above: Result Comment: Bord qcaeiu=340-577 mg/dL Higher Zcwp=584 mg/dL or greater Performed By: #### L 501.9985, L500.4100 #### [facility] [address] [place], [address] Cholesterol in VLDL [Mass/Vol] 26 mg/dL Normal 5-40 [facility] Comment on above: Performed By: #### L 501.9985, L500.4100 #### [facility] [address] [place], [address] Triglyceride [Mass/Vol] 129 mg/dL Normal [facility] Comment on above: Result Comment: The drugs N-Acetylcysteine and Metamizole may falsely depress this assay. Normal range: <150 mg/dL Borderline High: 150-199 mg/dL High: 200-499 mg/dL Very High: >500 mg/dL Performed By: #### L 501.9985, L500.4100 #### [facility] [address] [place], [address] Screening total cholesterol/ high density lipoprotein (HDL) cholesterol ratioOrdered By: Dolly Marino on 10-30-2024 Cholesterol.total/Chio sterol in HDL [Mass ratio] 3.64 {ratio} [facility] Serum or plasma cholesterol in HDL measurement (mass/volume)Ordered By: Dolly Marino on 10-30-2024 Cholesterol in HDL [Mass/Vol] 23 mg/dL Low >40 [facility] Comment on above: National Cholesterol Education Program (NCEP) guidelines:<40 mg/dL: Low HDL-cholesterol (major risk factor for CHD)>= 60 mg/dL: High HDL-cholesterol (negative risk factor for CHD)HDL-cholesterol is affected by a number of factors, e.g. smoking, exercise, hormones, sex and age. Serum or plasma cholesterol measurement (mass/volume)Ordered By: Dolly Marino on 10-30-2024 Cholesterol [Mass/Vol] 83 mg/dL <201 [facility] Comment on above: Cholesterol level, D esirable <200 mg/dLBorderline high cholesterol 200-239 mg/dLHigh cholesterol >=240 mg/dLRecommendations of the NCEP Adult Treatment Panel for the following risk-cutoff thresholds for the [place] population. Triglycerides measurementOrd ered By: Dolly Marino on 10-30-2024 Triglyceride [Mass/Vol] 129 mg/dL <199 [facility] Comment on above: The drugs N-Acetylcy steine and Metamizole may falsely depress this assay. Normal range: <150 mg/dLBorderline High: 150-199 mg/dLHigh: 200-499 mg/dLVery High: >500 mg/dL Absolute lymphocyte countOrd ered By: Dolly Marino on 10-28-2024 Lymphocytes Auto (Unsp spec) [#/Vol] 1.07 10*3/uL 0.83-4.51 [facility] Absolute neutrophil countOrd ered By: Dolly Marino on 10-28-2024 Neutrophils (Bld) [#/Vol] 2.8 10*3/uL 2.0-7.7 [facility] Anion gap in Serum or Plasma Ordered By: Dolly Marino on 10-28-2024 Anion gap [Moles/Vol] 10 mmol/L 5-15 [facility] Automated lymphocyte count a s percentage of total leukocytesOrdered By: Dolly Marino on 10-28-2024 Lymphocytes/100 WBC Auto (Unsp spec) 24.0 % 19-41 [facility] BUN/creatinine ratioOrdered By: Dolly Marino on 10-28-2024 Urea nitrogen/Creatinine [Mass ratio] 13.8 mg/mg 10-20 [facility] Basic Metabolic Profile (BMP )on 10-28-2024 BUN/CRE 13.8 RATIO Normal 10-20 [facility] Comment on above: Order Comment: 210 Performed By: #### L 100.0100, L500.2500, L501.9520, L501.5200, L506.1001, L500.4100, L501.1400 #### [facility] [address] [place], [address] GAP 10 Normal 5-15 [facility] Comment on above: Order Comment: 210 Performed By: #### L 100.0100, L500.2500, L501.9520, L501.5200, L506.1001, L500.4100, L501.1400 #### [facility] [address] [place], [address] Potassium [Moles/Vol] 4.1 mmol/L Normal 3.3-5.1 [facility] Comment on above: Order Comment: 210 Performed By: #### L 100.0100, L500.2500, L501.9520, L501.5200, L506.1001, L500.4100, L501.1400 #### [facility] [address] [place], [address] Basic Metabolic Profile (BMP )Ordered By: Dolly Marino on 10-28-2024 Calcium [Mass/Vol] 8.9 mg/dL 7.6-11.0 [facility] Comment on above: Order Comment: 210 Performed By: #### L 100.0100, L500.2500, L501.9520, L501.5200, L506.1001, L500.4100, L501.1400 #### [facility] [address] [place], [address] Chloride [Moles/Vol] 98 mmol/L 98-[address] [facility] Comment on above: Order Comment: 210 Performed By: #### L 100.0100, L500.2500, L501.9520, L501.5200, L506.1001, L500.4100, L501.1400 #### [facility] [address] [place], [address] CO2 [Moles/Vol] 27.1 mmol/L 21.0-32.0 [facility] Comment on above: Order Comment: 210 Performed By: #### L 100.0100, L500.2500, L501.9520, L501.5200, L506.1001, L500.4100, L501.1400 #### [facility] [address] [place], [address] Creatinine [Mass/Vol] 0.74 mg/dL 0.70-1.20 [facility] Comment on above: Order Comment: 210 Performed By: #### L 100.0100, L500.2500, L501.9520, L501.5200, L506.1001, L500.4100, L501.1400 #### [facility] [address] [place], [address] GFR/1.73 sq M.predicted among non-blacks MDRD (S/P/Bld) [Vol rate/Area] 108 mL/min/{1.73_m2} >60 [facility] Comment on above: Order Comment: 210 Result Comment: mL/m in/1.73m2 CKD-EPI Creatinine Equation (2020) Performed By: #### L 100.0100, L500.2500, L501.9520, L501.5200, L506.1001, L500.4100, L501.1400 #### [facility] [address] [place], [address] mL/min/1.73m2 CKD-EP I Creatinine Equation (2020) Glucose [Mass/Vol] 108 mg/dL High 70-99 [facility] Comment on above: Order Comment: 210 Performed By: #### L 100.0100, L500.2500, L501.9520, L501.5200, L506.1001, L500.4100, L501.1400 #### [facility] [address] [place], [address] Sodium [Moles/Vol] 135 mmol/L 133-145 [facility] Comment on above: Order Comment: 210 Performed By: #### L 100.0100, L500.2500, L501.9520, L501.5200, L506.1001, L500.4100, L501.1400 #### [facility] [address] [place], [address] Urea nitrogen [Mass/Vol] 10 mg/dL 4-19 [facility] Comment on above: Order Comment: 210 Performed By: #### L 100.0100, L500.2500, L501.9520, L501.5200, L506.1001, L500.4100, L501.1400 #### [facility] [address] [place], [address] CBC W/Diff, Automatedon 06-0 2-2024 Absolute Lymph 1.07 X10 3/uL Normal 0.83-4.51 [facility] Comment on above: Order Comment: 210 Performed By: #### L 100.0100, L500.2500, L501.9520, L501.5200, L506.1001, L500.4100, L501.1400 #### [facility] [address] [place], [address] Absolute Neut 2.8 X10 3/uL Normal 2.0-7.7 [facility] Comment on above: Order Comment: 210 Performed By: #### L 100.0100, L500.2500, L501.9520, L501.5200, L506.1001, L500.4100, L501.1400 #### [facility] [address] [place], [address] IG% 0.400 Normal 0.0-0.9 [facility] Comment on above: Order Comment: 210 Result Comment: IG% - Immature Granulocytes (promyelocytes, myelocytes and metamyelocytes) > 1% indicates that a LEFT SHIFT is Present. Performed By: #### L 100.0100, L500.2500, L501.9520, L501.5200, L506.1001, L500.4100, L501.1400 #### [facility] [address] [place], [address] Lymphocytes/100 WBC (Bld) 24.0 % Normal 19-41 [facility] Comment on above: Order Comment: 210 Performed By: #### L 100.0100, L500.2500, L501.9520, L501.5200, L506.1001, L500.4100, L501.1400 #### [facility] [address] [place], [address] Nucleated RBC (Bld) [#/Vol] 0 10*3/uL Normal 0-5 [facility] Comment on above: Order Comment: 210 Performed By: #### L 100.0100, L500.2500, L501.9520, L501.5200, L506.1001, L500.4100, L501.1400 #### [facility] [address] [place], [place], [id number] ([address] RDW SD 53.1 fl High 35.1-43.9 [facility] Comment on above: Order Comment: 210 Performed By: #### L 100.0100, L500.2500, L501.9520, L501.5200, L506.1001, L500.4100, L501.1400 #### [facility] [address] [place], [place], [id number] CBC W/Diff, AutomatedOrdered By: Dolly Marino on 10-28-2024 Basophils/100 WBC (Bld) 0.7 % 0-1 [facility] Comment on above: Order Comment: 210 Performed By: #### L 100.0100, L500.2500, L501.9520, L501.5200, L506.1001, L500.4100, L501.1400 #### [facility] [address] [place], [address] Eosinophils/100 WBC (Bld) 2.0 % 0-5 [facility] Comment on above: Order Comment: 210 Performed By: #### L 100.0100, L500.2500, L501.9520, L501.5200, L506.1001, L500.4100, L501.1400 #### [facility] [address] [place], [address] Erythrocyte distribution width (RBC) [Ratio] 15.9 % High 11.6-14.6 [facility] Comment on above: Order Comment: 210 Performed By: #### L 100.0100, L500.2500, L501.9520, L501.5200, L506.1001, L500.4100, L501.1400 #### [facility] [address] [place], [address] Hematocrit (Bld) [Volume fraction] 41.2 % 40-54 [facility] Comment on above: Order Comment: 210 Performed By: #### L 100.0100, L500.2500, L501.9520, L501.5200, L506.1001, L500.4100, L501.1400 #### [facility] [address] [place], [address] Hemoglobin (Bld) [Mass/Vol] 13.0 g/dL 13.0-16.5 [facility] Comment on above: Order Comment: 210 Performed By: #### L 100.0100, L500.2500, L501.9520, L501.5200, L506.1001, L500.4100, L501.1400 #### [facility] [address] [place], [address] MCH (RBC) [Entitic mass] 28.8 pg 27.0-32.0 [facility] Comment on above: Order Comment: 210 Performed By: #### L 100.0100, L500.2500, L501.9520, L501.5200, L506.1001, L500.4100, L501.1400 #### [facility] [address] [place], [address] MCHC (RBC) [Mass/Vol] 31.6 g/dL Low 32-36 [facility] Comment on above: Order Comment: 210 Performed By: #### L 100.0100, L500.2500, L501.9520, L501.5200, L506.1001, L500.4100, L501.1400 #### [facility] [address] [place], [address] MCV (RBC) [Entitic vol] 91.2 fL 80-94 [facility] Comment on above: Order Comment: 210 Performed By: #### L 100.0100, L500.2500, L501.9520, L501.5200, L506.1001, L500.4100, L501.1400 #### [facility] [address] [place], [address] Monocytes/100 WBC (Bld) 11.0 % High 0-10 [facility] Comment on above: Order Comment: 210 Performed By: #### L 100.0100, L500.2500, L501.9520, L501.5200, L506.1001, L500.4100, L501.1400 #### [facility] [address] [place], [address] Neutrophils/100 WBC (Bld) 61.9 % 47-70 [facility] Comment on above: Order Comment: 210 Performed By: #### L 100.0100, L500.2500, L501.9520, L501.5200, L506.1001, L500.4100, L501.1400 #### [facility] [address] [place], [address] Platelet mean volume (Bld) [Entitic vol] 9.6 fL 6.2-12.0 [facility] Comment on above: Order Comment: 210 Performed By: #### L 100.0100, L500.2500, L501.9520, L501.5200, L506.1001, L500.4100, L501.1400 #### [facility] [address] [place], [address] Platelets (Bld) [#/Vol] 154 10*3/uL 150-450 [facility] Comment on above: Order Comment: 210 Performed By: #### L 100.0100, L500.2500, L501.9520, L501.5200, L506.1001, L500.4100, L501.1400 #### [facility] [address] [place], [address] RBC (Bld) [#/Vol] 4.52 10*6/uL Low 4.6-6.2 [facility] Comment on above: Order Comment: 210 Performed By: #### L 100.0100, L500.2500, L501.9520, L501.5200, L506.1001, L500.4100, L501.1400 #### [facility] [address] [place], [address] WBC (Bld) [#/Vol] 4.5 10*3/uL 4.4-11.0 [facility] Comment on above: Order Comment: 210 Performed By: #### L 100.0100, L500.2500, L501.9520, L501.5200, L506.1001, L500.4100, L501.1400 #### [facility] [address] [place], [address] Calculated very low density lipoprotein (VLDL) cholesterol measurementOrdered By: Dolly Marino on 10-28-2024 Calculated very low density lipoprotein (VLDL) cholesterol measurement 26 mg/dL -40 [facility] Erythrocyte distribution wid th standard deviationOrdered By: Dolly Marino on 10-28-2024 Erythrocyte distribution width (RBC) [Ratio] 53.1 fl High 35.1-43.9 [facility] Immature granulocytes/100 WB C Auto (Bld)Ordered By: Dolly Marino on 10-28-2024 Immature granulocytes/100 WBC (Bld) 0.400 % 0.0-0.9 [facility] Comment on above: IG% - Immature Granu locytes (promyelocytes, myelocytes and metamyelocytes) > 1% indicates that a LEFT SHIFT is Present. Lipid Profileon 10-28-2024 CHOL:HDL 4.07 Normal [facility] Comment on above: Order Comment: 210 Performed By: #### L 100.0500, L500.4050 #### [facility] [address] [place], [address] Cholesterol in VLDL [Mass/Vol] 26 mg/dL Normal - [facility] Comment on above: Order Comment: 210 Performed By: #### L 100.0500, L500.4050 #### [facility] [address] [place], [address] Lipid ProfileOrdered By: Sahara Marino on 10-28-2024 Cholesterol [Mass/Vol] 95 mg/dL <201 [facility] Comment on above: Order Comment: 210 Result Comment: Chol esterol level, Desirable <200 mg/dL Borderline high cholesterol 200-239 mg/dL High cholesterol >=240 mg/dL Recommendations of the NCEP Adult Treatment Panel for the following risk-cutoff thresholds for the [place] population. Performed By: #### L 100.0500, L500.4050 #### [facility] [address] [place], [address] Cholesterol level, D esirable <200 mg/dLBorderline high cholesterol 200-239 mg/dLHigh cholesterol >=240 mg/dLRecommendations of the NCEP Adult Treatment Panel for the following risk-cutoff thresholds for the [place] population. Cholesterol in HDL [Mass/Vol] 23 mg/dL Low >40 [facility] Comment on above: Order Comment: 210 Result Comment: Fern onal Cholesterol Education Program (NCEP) guidelines: <40 mg/dL: Low HDL-cholesterol (major risk factor for CHD) >= 60 mg/dL: High HDL-cholesterol (negative risk factor for CHD) HDL-cholesterol is affected by a number of factors, e.g. smoking, exercise, hormones, sex and age. Performed By: #### L 100.0500, L500.4050 #### [facility] [address] [facility] [id number] National Cholesterol Education Program (NCEP) guidelines:<40 mg/dL: Low HDL-cholesterol (major risk factor for CHD)>= 60 mg/dL: High HDL-cholesterol (negative risk factor for CHD)HDL-cholesterol is affected by a number of factors, e.g. smoking, exercise, hormones, sex and age. Cholesterol in LDL [Mass/Vol] 46 mg/dL [facility] Comment on above: Order Comment: 210 Result Comment: Bord ypdgqy=882-883 mg/dL Higher Ouhs=024 mg/dL or greater Performed By: #### L 100.0500, L500.4050 #### [facility] [address] [place], [address] Ddgbjhgzak=117-859 m g/dL & Higher Lyaw=879 mg/dL or greater Triglyceride [Mass/Vol] 129 mg/dL <199 [facility] Comment on above: Order Comment: 210 Result Comment: The drugs N-Acetylcysteine and Metamizole may falsely depress this assay. Normal range: <150 mg/dL Borderline High: 150-199 mg/dL High: 200-499 mg/dL Very High: >500 mg/dL Performed By: #### L 100.0500, L500.4050 #### [facility] [address] [place], [address] The drugs N-Acetylcy steine and Metamizole may falsely depress this assay. Normal range: <150 mg/dLBorderline High: 150-199 mg/dLHigh: 200-499 mg/dLVery High: >500 mg/dL Magnesiumon 10-28-2024 Magnesium [Mass/Vol] 2.2 mg/dL Normal 1.5-2.[address] [facility] Comment on above: Order Comment: 210 Performed By: #### L 100.0500, L500.4050 #### [facility] [facility] [address] [place], [address] Magnesium measurement (mass/ volume)Ordered By: Dolly Marino on 10-28-2024 Magnesium (Unsp spec) [Mass/Vol] 2.2 mg/dL 1.5-2.2 [facility] Nucleated red blood cell per centageOrdered By: Dolly Marino on 10-28-2024 Nucleated RBC/100 WBC (Bld) [Ratio] 0 % 0-5 [facility] Potassium measurement (mass/ volume)Ordered By: Dolly Marino on 10-28-2024 Potassium (Unsp spec) [Mass/Vol] 4.1 mmol/L 3.3-5.1 [facility] Screening total cholesterol/ high density lipoprotein (HDL) cholesterol ratioOrdered By: Dolly Marino on 10-28-2024 Cholesterol.total/Chio sterol in HDL [Mass ratio] 4.07 {ratio} [facility] Serum or plasma uric acid me asurement (mass/volume)Ordered By: Dolly Marino on 10-28-2024 Urate [Mass/Vol] 5.8 mg/dL 3.5-7.2 [facility] Comment on above: The drugs N-Acetylcy steine and Metamizole may falsely depress this assay. TSH DL <= 0.005 mIU/L QnOrde red By: Dolly Marino on 10-28-2024 TSH Qn 3.370 uIU/mL 0.300-4.200 [facility] Thyroid Stim Hormone (TSH)on 10-28-2024 TSH 3.370 uIU/mL Normal 0.300-4.200 [facility] Comment on above: Order Comment: 210 Performed By: #### L 100.0500, L500.4050 #### [facility] [address] [place], [address] Uric Acidon 10-28-2024 URIC 5.8 mg/dL Normal 3.5-7.2 [facility] Comment on above: Order Comment: 210 Result Comment: The drugs N-Acetylcysteine and Metamizole may falsely depress this assay. Performed By: #### L 100.0500, L500.4050 #### [facility] [address] [place], [address] Vitamin D,25 Hydroxyon 10-28 Vitamin D 25-OH < 6.0 Low 30-100 [facility] Comment on above: Order Comment: 210 Result Comment: Colleen min D Status Deficiency: <20 ng/mL (50nmol/L) Insufficiency: 20-30 ng/mL (50-75 nmol/L) Sufficiency: 30-100 ng/mL (75-250 nmol/L) Toxicity: >100 ng/mL (>250 nmol/L) Performed By: #### L 100.0500, L500.4050 #### [facility] [address] [place], [place], [id number] Anion gap in Serum or Plasma Ordered By: Dolly Marino on 10-24-2024 Anion gap [Moles/Vol] 9 mmol/L 5-15 [facility] BUN/creatinine ratioOrdered By: Dolly Marino on 10-24-2024 Urea nitrogen/Creatinine [Mass ratio] 14.6 mg/mg 10-20 [facility] Bilirubin, totalOrdered By: Dollytheresa Marino on 10-24-2024 Bilirubin [Mass/Vol] 0.31 mg/dL 0.00-1.[address] [facility] CBC-Complete Blood Cnt No Di ffon 10-24-2024 Erythrocyte distribution width (RBC) [Ratio] 15.6 % High 11.6-14.6 [facility] Comment on above: Performed By: #### L 100.0500, L500.4050 #### [facility] [address] [place], [address] Hematocrit (Bld) [Volume fraction] 40.1 % Normal 40-54 [facility] Comment on above: Performed By: #### L 100.0500, L500.4050 #### [facility] [address] [place], [address] Hemoglobin (Bld) [Mass/Vol] 12.7 g/dL Low 13.0-16.5 [facility] Comment on above: Performed By: #### L 100.0500, L500.4050 #### [facility] [address] [place], [address] MCH (RBC) [Entitic mass] 28.7 pg Normal 27.0-32.0 [facility] Comment on above: Performed By: #### L 100.0500, L500.4050 #### [facility] [address] [place], [address] MCHC (RBC) [Mass/Vol] 31.7 g/dL Low 32-36 [facility] Comment on above: Performed By: #### L 100.0500, L500.4050 #### [facility] [address] [place], [address] MCV (RBC) [Entitic vol] 90.7 fL Normal 80-94 [facility] Comment on above: Performed By: #### L 100.0500, L500.4050 #### [facility] [address] [place], [address] Platelet mean volume (Bld) [Entitic vol] 9.3 fL Normal 6.2-12.0 [facility] Comment on above: Performed By: #### L 100.0500, L500.4050 #### [facility] [address] [place], [address] Platelets (Bld) [#/Vol] 155 10*3/uL Normal 150-450 [facility] Comment on above: Performed By: #### L 100.0500, L500.4050 #### [facility] [address] [place], [address] RBC (Bld) [#/Vol] 4.42 10*6/uL Low 4.6-6.2 [facility] Comment on above: Performed By: #### L 100.0500, L500.4050 #### [facility] [address] [place], [address] RDW SD 51.8 fl High 35.1-43.9 [facility] Comment on above: Performed By: #### L 100.0500, L500.4050 #### [facility] [address] [place], [address] WBC (Bld) [#/Vol] 4.6 10*3/uL Normal 4.4-11.0 [facility] Comment on above: Performed By: #### L 100.0500, L500.4050 #### [facility] [address] [place], [address] Carbon dioxide, total [Moles /volume] in Central venous bloodOrdered By: Dolly Marino on 10-24-2024 CO2 [Moles/Vol] 29.2 mmol/L 21.0-32.0 [facility] Chloride assayOrdered By: Darrin Marino on 10-24-2024 Chloride [Moles/Vol] 99 mmol/L 98-[address] [facility] Comprehensive Metabolic Prof ilon 10-24-2024 Albumin [Mass/Vol] 3.4 g/dL Low 3.5-5.0 [facility] Comment on above: Performed By: #### L 100.0500, L500.4050 #### [facility] [address] [place], [address] Albumin/Globulin [Mass ratio] 1.0 {ratio} Normal 0.9-2.4 [facility] Comment on above: Performed By: #### L 100.0500, L500.4050 #### [facility] [address] [place], [address] ALK PHOS 76 U/L Normal 40-129 [facility] Comment on above: Performed By: #### L 100.0500, L500.4050 #### [facility] [address] [place], [address] ALT [Catalytic activity/Vol] 6 U/L Normal <=46 [facility] Comment on above: Performed By: #### L 100.0500, L500.4050 #### [facility] [address] [place], [address] AST [Catalytic activity/Vol] 18 U/L Normal <=37 [facility] Comment on above: Performed By: #### L 100.0500, L500.4050 #### [facility] [address] [place], [address] Bilirubin [Mass/Vol] 0.31 mg/dL Normal 0.00-1.[address] [facility] Comment on above: Performed By: #### L 100.0500, L500.4050 #### [facility] [address] [place], [address] BUN/CRE 14.6 RATIO Normal 10-20 [facility] Comment on above: Performed By: #### L 100.0500, L500.4050 #### [facility] [address] [place], [address] Calcium [Mass/Vol] 9.0 mg/dL Normal 7.6-11.0 [facility] Comment on above: Performed By: #### L 100.0500, L500.4050 #### [facility] [address] [place], [address] Chloride [Moles/Vol] 99 mmol/L Normal 98-[address] [facility] Comment on above: Performed By: #### L 100.0500, L500.4050 #### [facility] [address] [place], [address] CO2 [Moles/Vol] 29.2 mmol/L Normal 21.0-32.0 [facility] Comment on above: Performed By: #### L 100.0500, L500.4050 #### [facility] [address] [place], [address] Creatinine [Mass/Vol] 0.65 mg/dL Low 0.70-1.20 [facility] Comment on above: Performed By: #### L 100.0500, L500.4050 #### [facility] [address] [place], [address] GAP 9 Normal 5-15 [facility] Comment on above: Performed By: #### L 100.0500, L500.4050 #### [facility] [address] [place], [address] GFR/1.73 sq M.predicted among non-blacks MDRD (S/P/Bld) [Vol rate/Area] 113 mL/min/{1.73_m2} Normal >60 [facility] Comment on above: Result Comment: mL/m in/1.73m2 CKD-EPI Creatinine Equation (2020) Performed By: #### L 100.0500, L500.4050 #### [facility] [address] [place], [address] Globulin (S) [Mass/Vol] 3.2 g/dL Normal 2.2-4.2 [facility] Comment on above: Performed By: #### L 100.0500, L500.4050 #### [facility] [address] [place], [address] Glucose [Mass/Vol] 113 mg/dL High 70-99 [facility] Comment on above: Performed By: #### L 100.0500, L500.4050 #### [facility] [address] [place], [address] Potassium [Moles/Vol] 3.8 mmol/L Normal 3.3-5.1 [facility] Comment on above: Performed By: #### L 100.0500, L500.4050 #### [facility] [address] [place], [address] Sodium [Moles/Vol] 137 mmol/L Normal 133-145 [facility] Comment on above: Performed By: #### L 100.0500, L500.4050 #### [facility] [address] [place], [address] T PROT 6.6 g/dL Normal 5.9-8.4 [facility] Comment on above: Performed By: #### L 100.0500, L500.4050 #### [facility] [address] [place], [address] Urea nitrogen [Mass/Vol] 10 mg/dL Normal 4-19 [facility] Comment on above: Performed By: #### L 100.0500, L500.4050 #### [facility] [address] [place], [address] Erythrocyte distribution wid th ratioOrdered By: Dolly Marino on 10-24-2024 Erythrocyte distribution width (RBC) [Ratio] 15.6 % High 11.6-14.6 [facility] Erythrocyte distribution wid th standard deviationOrdered By: Dolly Marino on 10-24-2024 Erythrocyte distribution width (RBC) [Ratio] 51.8 fl High 35.1-43.9 [facility] Glomerular filtration rate ( GFR) estimation/1.73 sq m using serum, plasma, or whole bOrdered By: Dolly Marino on 10-24-2024 GFR/1.73 sq M.predicted among non-blacks MDRD (S/P/Bld) [Vol rate/Area] 113 mL/min/{1.73_m2} >60 [facility] Comment on above: mL/min/1.73m2 CKD-EP I Creatinine Equation (2020) Hematocrit Auto (Bld) [Volum e fraction]Ordered By: Dolly Mraino on 10-24-2024 Hematocrit (Bld) [Volume fraction] 40.1 % 40-54 [facility] Hemoglobin measurementOrdere d By: Dolly Marino on 10-24-2024 Hemoglobin (Bld) [Mass/Vol] 12.7 g/dL Low 13.0-16.5 [facility] - Chemistry and C hemistry - challengeOrdered By: Dolly Marino on 10-24-2024 AST [Catalytic activity/Vol] 18 U/L <38 [facility] MCV (mean corpuscular volume ) determinationOrdered By: Dolly Marino on 10-24-2024 MCV (RBC) [Entitic vol] 90.7 fL 80-94 [facility] Mean corpuscular hemoglobin (MCH) determinationOrdered By: Dolly Marino on 10-24-2024 MCH (RBC) [Entitic mass] 28.7 pg 27.0-32.0 [facility] Mean corpuscular hemoglobin concentration (MCHC) determinationOrdered By: Dolly Marino on 10-24-2024 MCHC (RBC) [Mass/Vol] 31.7 g/dL Low 32-36 [facility] Mean platelet volume determi nationOrdered By: Dolly Marino on 10-24-2024 Platelet mean volume (Bld) [Entitic vol] 9.3 fL 6.2-12.0 [facility] Platelet countOrdered By: Darrin Marino on 10-24-2024 Platelets (Bld) [#/Vol] 155 10*3/uL 150-450 [facility] Potassium measurement (mass/ volume)Ordered By: Dolly Marino on 10-24-2024 Potassium (Unsp spec) [Mass/Vol] 3.8 mmol/L 3.3-5.1 [facility] RBC Auto (Bld) [#/Vol]Ordere d By: Dolly Marino on 10-24-2024 RBC (Bld) [#/Vol] 4.42 10*6/uL Low 4.6-6.2 [facility] Serum creatinine measurement (mass/volume)Ordered By: Dolly Marino on 10-24-2024 Creatinine [Mass/Vol] 0.65 mg/dL Low 0.70-1.20 [facility] Serum globulin measurementOr dered By: Dolly Marino on 10-24-2024 Globulin (S) [Mass/Vol] 3.2 g/dL 2.2-4.2 [facility] Serum glucose measurement (m ass/volume)Ordered By: Dolly Marino on 10-24-2024 Glucose [Mass/Vol] 113 mg/dL High 70-99 [facility] Serum or plasma alanine linda otransferase (ALT) measurementOrdered By: Dolly Marino on 10-24-2024 ALT [Catalytic activity/Vol] 6 U/L <47 [facility] Serum or plasma albumin scott urement (mass/volume)Ordered By: Dolly Marino on 10-24-2024 Albumin [Mass/Vol] 3.4 g/dL Low 3.5-5.0 [facility] Serum or plasma albumin/glob ulin mass ratioOrdered By: Dolly Marino on 10-24-2024 Albumin/Globulin [Mass ratio] 1.0 {ratio} 0.9-2.4 [facility] Serum or plasma alkaline kamaljit sphatase measurementOrdered By: Dolly Marino on 10-24-2024 ALP [Catalytic activity/Vol] 76 U/L 40-129 [facility] Serum or plasma calcium scott urement (mass/volume)Ordered By: Dolly Marino on 10-24-2024 Calcium [Mass/Vol] 9.0 mg/dL 7.6-11.0 [facility] Serum or plasma urea nitroge n measurement (mass/volume)Ordered By: Dolly Marino on 10-24-2024 Urea nitrogen [Mass/Vol] 10 mg/dL 4-19 [facility] Sodium levelOrdered By: Missael Marino on 10-24-2024 Sodium [Moles/Vol] 137 mmol/L 133-145 [facility] Total proteinOrdered By: Sahara Marino on 10-24-2024 Protein [Mass/Vol] 6.6 g/dL 5.9-8.4 [facility] White blood cell (WBC) count Ordered By: Dolly Marino on 10-24-2024 WBC (Bld) [#/Vol] 4.6 10*3/uL 4.4-11.0 [facility] LABORATORYOrdered By: Samanta Morin on 10-23-2024 Blood Glucose Testing Reason Routine (10/23/24 8:27 PM) [facility] Glucose [Mass/Vol] 168 mg/dL High 70 - 110 mg/dL [facility] LABORATORYOrdered By: Sarah Carrillo on 10-23-2024 Blood Glucose Testing Reason Routine (10/23/24 5:31 PM) [facility] Glucose [Mass/Vol] 146 mg/dL High 70 - 110 mg/dL [facility] LABORATORYOrdered By: Gianna Mendez on 10-23-2024 Blood Glucose Testing Reason Routine (10/23/24 12:15 PM) [facility] Glucose [Mass/Vol] 154 mg/dL High 70 - 110 mg/dL [facility] Comment on above: Result Comment: noti fied nurse SHAHEEN Staples .Auto Diffon 10-20-2024 Basophil, Absolute 0.0 10 3/mcL Normal 0.0-0.3 [facility] Comment on above: Performed By: #### A ERIC, CBC, BMP, ADIFF, GFR #### [facility] [address] [place] [address] Basophils/100 WBC (Bld) 0.6 % Normal 0.0-2.5 [facility] Comment on above: Performed By: #### A ERIC, CBC, BMP, ADIFF, GFR #### [address] [address] Eosinophil, Absolute 0.1 10 3/mcL Normal 0.0-0.[address] [facility] Comment on above: Performed By: #### A ERIC, CBC, BMP, ADIFF, GFR #### [address] [address] Eosinophils/100 WBC (Bld) 1.5 % Normal 0.0-6.0 [facility] Comment on above: Performed By: #### A ERIC, CBC, BMP, ADIFF, GFR #### [address] [address] Lymphocyte, Absolute 1.0 10 3/mcL Normal 0.9-4.[address] [facility] Comment on above: Performed By: #### A ERIC, CBC, BMP, ADIFF, GFR #### [address] [address] Lymphocytes/100 WBC (Bld) 21.2 % Normal 20.0-40.0 [facility] Comment on above: Performed By: #### A ERIC, CBC, BMP, ADIFF, GFR #### [address] [address] Monocyte, Absolute 0.6 10 3/mcL Normal 0.1-1.4 [facility] Comment on above: Performed By: #### A ERCI, CBC, BMP, ADIFF, GFR #### [address] [address] Monocytes/100 WBC (Bld) 11.6 % Normal 2.0-13.0 [facility] Comment on above: Performed By: #### A ERIC, CBC, BMP, ADIFF, GFR #### [address] [address] Neutrophils/100 WBC (Bld) 65.1 % Normal 50.0-75.0 [facility] Comment on above: Performed By: #### A ERIC, CBC, BMP, ADIFF, GFR #### [address] [address] .GFRon 05-25-2025 Estimated Glomerular Filtration Rate 108 ml/min/1.73sqm Normal [facility] Comment on above: Result Comment: [...] eGFR results. Performed By: #### A ERIC, CBC, BMP, ADIFF, GFR #### [place] [id number] .NEUABSon 10-20-2024 Neutrophil, Absolute 3.2 10 3/mcL Normal 2.3-8.[address] [facility] Comment on above: Performed By: #### A ERIC, CBC, BMP, ADIFF, GFR #### [place] [id number] [facility] 10-20-2024 BUN/Creatinine Ratio 10.8 ratio Normal 10.0-22.0 [facility] Comment on above: Performed By: #### A ERIC, CBC, BMP, ADIFF, GFR #### [address] [address] Calcium [Mass/Vol] 8.7 mg/dL Normal 8.7-10.4 [facility] Comment on above: Performed By: #### A ERIC, CBC, BMP, ADIFF, GFR #### [address] [address] Chloride [Moles/Vol] 97 mmol/L Low 98-110 [facility] Comment on above: Performed By: #### A ERIC, CBC, BMP, ADIFF, GFR #### [address] [address] CO2 [Moles/Vol] 37 mmol/L High 22-32 [facility] Comment on above: Performed By: #### A ERIC, CBC, BMP, ADIFF, GFR #### [address] [address] Creatinine [Mass/Vol] 0.74 mg/dL Normal 0.60-1.40 [facility] Comment on above: Result Comment: Test ing performed on [employer] analyzer using enzymatic creatinine methodology. Performed By: #### A ERIC, CBC, BMP, ADIFF, GFR #### [address] [address] Electrolyte Balance 4.0 mEq/L Normal 4.0-15.0 [facility] Comment on above: Performed By: #### A ERIC, CBC, BMP, ADIFF, GFR #### [address] [address] Glucose [Mass/Vol] 116 mg/dL High 70-110 [facility] Comment on above: Performed By: #### A ERIC, CBC, BMP, ADIFF, GFR #### [address] [address] Potassium [Moles/Vol] 3.5 mmol/L Normal 3.5-5.0 [facility] Comment on above: Performed By: #### A ERIC, CBC, BMP, ADIFF, GFR #### [address] [address] Sodium [Moles/Vol] 138 mmol/L Normal 136-145 [facility] Comment on above: Performed By: #### A ERIC, CBC, BMP, ADIFF, GFR #### [address] [address] Urea nitrogen [Mass/Vol] 8.0 mg/dL Normal 8.0-22.0 [facility] Comment on above: Performed By: #### A ERIC, CBC, BMP, ADIFF, GFR #### [address] [address] CBCon 10-20-2024 Erythrocyte distribution width (RBC) [Ratio] 16.8 % High 11.5-15.5 [facility] Comment on above: Performed By: #### A ERIC, CBC, BMP, ADIFF, GFR #### [place] [address] Hematocrit (Bld) [Volume fraction] 41.3 % Normal 40.0-52.0 [facility] Comment on above: Performed By: #### A ERIC, CBC, BMP, ADIFF, GFR #### [place] [address] Hgb 13.4 G/dL Normal 13.0-17.5 [facility] Comment on above: Performed By: #### A ERIC, CBC, BMP, ADIFF, GFR #### [place] [address] MCH (RBC) [Entitic mass] 28.7 pg Normal 27.0-33.0 [facility] Comment on above: Performed By: #### A ERIC, CBC, BMP, ADIFF, GFR #### [place] [address] MCHC 32.4 G/dL Normal 32.0-36.0 [facility] Comment on above: Performed By: #### A ERIC, CBC, BMP, ADIFF, GFR #### [place] [address] MCV (RBC) [Entitic vol] 88.5 fL Normal 81.0-100.0 [facility] Comment on above: Performed By: #### A ERIC, CBC, BMP, ADIFF, GFR #### [place] [address] Platelet 175 10 3/mcL Normal 150-450 [facility] Comment on above: Performed By: #### A ERIC, CBC, BMP, ADIFF, GFR #### [place] [address] Platelet mean volume (Bld) [Entitic vol] 7.3 fL Normal 6.4-10.5 [facility] Comment on above: Performed By: #### A ERIC, CBC, BMP, ADIFF, GFR #### [place] [address] RBC 4.67 10 6/mcL Normal 4.50-6.00 [facility] Comment on above: Performed By: #### A ERIC, CBC, BMP, ADIFF, GFR #### [facility] [address] [place] [address] WBC 4.8 10 3/mcL Normal 4.5-10.8 [facility] Comment on above: Performed By: #### A ERIC, CBC, BMP, ADIFF, GFR #### [facility] [address] [place] [address] LABORATORYOrdered By: SYSTEM SYSTEM on 10-20-2024 Basophils [...] above: Interpretive Data: T esting performed on [employer] analyzer using enzymatic creatinine methodology. Electrolyte Balance [...] Basophil, Absolute 0.0 10 3/mcL Normal 0.0-0.3 [facility] Comment on above: Performed By: #### G FR, CANDELARIA RANDOLPH, CMP #### [address] [address] Basophils/100 WBC (Bld) 0.7 % Normal 0.0-2.5 [facility] Comment on above: Performed By: #### G FR, ABSMEGHAN HUGGINSGEL, CMP #### [address] [address] Eosinophil, Absolute 0.1 10 3/mcL Normal 0.0-0.[address] [facility] Comment on above: Performed By: #### G FR, ABSJOSELUIS ABOGEL, CMP #### [address] [address] Eosinophils/100 WBC (Bld) 1.9 % Normal 0.0-6.0 [facility] Comment on above: Performed By: #### G FR, ABSJOSELUIS, ABOGEL, CMP #### [address] [address] Lymphocyte, Absolute 1.0 10 3/mcL Normal 0.9-4.[address] [facility] Comment on above: Performed By: #### G FR, ABSGEL, ABOGEL, CMP #### [address] [address] Lymphocytes/100 WBC (Bld) 18.3 % Low 20.0-40.0 [facility] Comment on above: Performed By: #### G FR, ABSGEL, ABOGEL, CMP #### [address] [address] Monocyte, Absolute 0.5 10 3/mcL Normal 0.1-1.4 [facility] Comment on above: Performed By: #### G TOMASA DEAN ABOGEL CMP #### [address] [address] Monocytes/100 WBC (Bld) 9.1 % Normal 2.0-13.0 [facility] Comment on above: Performed By: #### TOMASA DIETRICH ABOGEL, CMP #### [address] [address] Neutrophils/100 WBC (Bld) 70.0 % Normal 50.0-75.0 [facility] Comment on above: Performed By: #### TOMASA DIETRICH ABOGEL, CMP #### [address] [address] .GFRon 10-19-2024 Estimated Glomerular Filtration Rate 109 ml/min/1.73sqm Normal [facility] Comment on above: Result Comment: [...] calculate the eGFR results. Performed By: #### G TOMASA DEAN ABOGEL, CMP #### [address] [address] .NEUABSon 10-19-2024 Neutrophil, Absolute 3.8 10 3/mcL Normal 2.3-8.[address] [facility] Comment on above: Performed By: #### G TOMASA DEAN ABOGEL, CMP #### [address] [address] BMPon 10-19-2024 BUN/Creatinine Ratio 11.1 ratio Normal 10.0-22.0 [facility] Comment on above: Performed By: #### TOMASA DIETRICH ABOGEL, CMP #### [address] [address] Calcium [Mass/Vol] 8.7 mg/dL Normal 8.7-10.4 [facility] Comment on above: Performed By: #### TOMASA DIETRICH ABOGEL, CMP #### [address] [address] Chloride [Moles/Vol] 100 mmol/L Normal 98-110 [facility] Comment on above: Performed By: #### TOMASA DIETRICH ABOGEL, CMP #### [address] [address] CO2 [Moles/Vol] 33 mmol/L High 22-32 [facility] Comment on above: Performed By: #### TOMASA DIETRICH ABOGEL, CMP #### [address] [address] Creatinine [Mass/Vol] 0.72 mg/dL Normal 0.60-1.40 [facility] Comment on above: Result Comment: Test ing performed on [employer] analyzer using enzymatic creatinine methodology. Performed By: #### TOMASA DIETRICH ABOGEL, CMP #### [address] [address] Electrolyte Balance 4.0 mEq/L Normal 4.0-15.0 [facility] Comment on above: Performed By: #### TOMASA DIETRICH ABOGEL, CMP #### [address] [address] Glucose [Mass/Vol] 181 mg/dL High 70-110 [facility] Comment on above: Performed By: #### TOMASA DIETRICH ABOGEL, CMP #### [address] [address] Potassium [Moles/Vol] 3.5 mmol/L Normal 3.5-5.0 [facility] Comment on above: Performed By: #### TOMASA DIETRICH ABOGEL, CMP #### [address] [address] Sodium [Moles/Vol] 137 mmol/L Normal 136-145 [facility] Comment on above: Performed By: #### TOMASA DIETRICH ABOGEL, CMP #### [place] [address] Urea nitrogen [Mass/Vol] 8.0 mg/dL Normal 8.0-22.0 [facility] Comment on above: Performed By: #### TOMASA DIETRICH ABOGEL, CMP #### [place] [address] CBCon 10-19-2024 Erythrocyte distribution width (RBC) [Ratio] 17.3 % High 11.5-15.5 [facility] Comment on above: Performed By: #### TOMASA DIETRICH ABOGEL, CMP #### [place] [address] Hematocrit (Bld) [Volume fraction] 40.5 % Normal 40.0-52.0 [facility] Comment on above: Performed By: #### TOMASA DIETRICH ABOGEL, CMP #### [place] [address] Hgb 13.0 G/dL Normal 13.0-17.5 [facility] Comment on above: Performed By: #### TOMASA DIETRICH ABOGEL, CMP #### [place] [address] MCH (RBC) [Entitic mass] 28.6 pg Normal 27.0-33.0 [facility] Comment on above: Performed By: #### G TOMASA DEAN ABOGEL, CMP #### [place] [address] MCHC 32.1 G/dL Normal 32.0-36.0 [facility] Comment on above: Performed By: #### G TOMASA DEAN ABOGEL, CMP #### [place] [address] MCV (RBC) [Entitic vol] 89.2 fL Normal 81.0-100.0 [facility] Comment on above: Performed By: #### G TOMASA DEAN ABOGEL, CMP #### [address] [address] Platelet 171 10 3/mcL Normal 150-450 [facility] Comment on above: Performed By: #### TOMASA DIETRICH ABOGEL, CMP #### [address] [address] Platelet mean volume (Bld) [Entitic vol] 7.6 fL Normal 6.4-10.5 [facility] Comment on above: Performed By: #### TOMASA DIETRICH ABOGEL, CMP #### [place] [address] RBC 4.54 10 6/mcL Normal 4.50-6.00 [facility] Comment on above: Performed By: #### TOMASA DIETRICH ABOGEL, CMP #### [place] [id number] WBC 5.4 10 3/mcL Normal 4.5-10.8 [facility] Comment on above: Performed By: #### TOMASA DIETRICH ABOGEL, CMP #### [place] [address] LABORATORYOrdered By: SYSTEM SYSTEM on 10-19-2024 Basophils [...] above: Interpretive Data: T esting performed on [employer] analyzer using enzymatic creatinine methodology. Electrolyte Balance [...] Basophil, Absolute 0.0 10 3/mcL Normal 0.0-0.3 [facility] Comment on above: Performed By: #### A ERIC, CBC, BMP, ADIFF, GFR #### [address] [address] Basophils/100 WBC (Bld) 0.6 % Normal 0.0-2.5 [facility] Comment on above: Performed By: #### A ERIC, CBC, BMP, ADIFF, GFR #### [address] [address] Eosinophil, Absolute 0.1 10 3/mcL Normal 0.0-0.[address] [facility] Comment on above: Performed By: #### A ERIC, CBC, BMP, ADIFF, GFR #### [address] [address] Eosinophils/100 WBC (Bld) 1.7 % Normal 0.0-6.0 [facility] Comment on above: Performed By: #### A ERIC, CBC, BMP, ADIFF, GFR #### [address] [address] Lymphocyte, Absolute 1.2 10 3/mcL Normal 0.9-4.[address] [facility] Comment on above: Performed By: #### A ERIC, CBC, BMP, ADIFF, GFR #### [address] [address] Lymphocytes/100 WBC (Bld) 19.0 % Low 20.0-40.0 [facility] Comment on above: Performed By: #### A ERIC, CBC, BMP, ADIFF, GFR #### [address] [address] Monocyte, Absolute 0.9 10 3/mcL Normal 0.1-1.4 [facility] Comment on above: Performed By: #### A ERIC, CBC, BMP, ADIFF, GFR #### [address] [address] Monocytes/100 WBC (Bld) 14.1 % High 2.0-13.0 [facility] Comment on above: Performed By: #### A ERIC, CBC, BMP, ADIFF, GFR #### [address] [address] Neutrophils/100 WBC (Bld) 64.6 % Normal 50.0-75.0 [facility] Comment on above: Performed By: #### A ERIC, CBC, BMP, ADIFF, GFR #### [address] [address] Basophil, Absolute 0.0 10 3/mcL Normal 0.0-0.3 [facility] Comment on above: Performed By: #### G FR, ABSGEL, ABOGEL, CMP #### [address] [address] Basophils/100 WBC (Bld) 0.4 % Normal 0.0-2.5 [facility] Comment on above: Performed By: #### G FR, ABSGEL, ABOGEL, CMP #### [address] [address] Eosinophil, Absolute 0.1 10 3/mcL Normal 0.0-0.[address] [facility] Comment on above: Performed By: #### G FR, CANDELARIA RANDOLPH, CMP #### [address] [address] Eosinophils/100 WBC (Bld) 1.2 % Normal 0.0-6.0 [facility] Comment on above: Performed By: #### G FR, MEGHAN RANDOLPHGEL, CMP #### [address] [address] Lymphocyte, Absolute 0.7 10 3/mcL Low 0.9-4.[address] [facility] Comment on above: Performed By: #### G FR, MEGHAN RANDOLPHGEL, CMP #### [address] [address] Lymphocytes/100 WBC (Bld) 16.1 % Low 20.0-40.0 [facility] Comment on above: Performed By: #### G FR, CANDELARIA RANDOLPH, CMP #### [address] [address] Monocyte, Absolute 0.5 10 3/mcL Normal 0.1-1.4 [facility] Comment on above: Performed By: #### G FR, MEGHAN RANDOLPHGEL, CMP #### [address] [address] Monocytes/100 WBC (Bld) 11.8 % Normal 2.0-13.0 [facility] Comment on above: Performed By: #### G FR, MEGHAN RANDOLPHGEL, CMP #### [address] [address] Neutrophils/100 WBC (Bld) 70.5 % Normal 50.0-75.0 [facility] Comment on above: Performed By: #### G FR, ABSJOSELUIS ABOGEL, CMP #### [address] [address] .GFRon 10-18-2024 Estimated Glomerular Filtration Rate 112 ml/min/1.73sqm [facility] Comment on above: Result Comment: [...] eGFR results. Performed By: #### A ERIC, CBC, BMP, ADIFF, GFR #### [address] [address] Estimated Glomerular Filtration Rate 114 ml/min/1.73sqm Normal [facility] Comment on above: Result Comment: [...] calculate the eGFR results. Performed By: #### G FR, ABSGEL, ABOGEL, CMP #### [address] [address] .NEUABSon 10-18-2024 Neutrophil, Absolute 3.9 10 3/mcL Normal 2.3-8.[address] [facility] Comment on above: Performed By: #### A ERIC, CBC, BMP, ADIFF, GFR #### [address] [address] Neutrophil, Absolute 3.3 10 3/mcL Normal 2.3-8.[address] [facility] Comment on above: Performed By: #### G FR, ABSGEL, ABOGEL, CMP #### [address] [address] BMPon 10-18-2024 BUN/Creatinine Ratio 9.0 ratio Low 10.0-22.0 [facility] Comment on above: Performed By: #### A ERIC, CBC, BMP, ADIFF, GFR #### [address] [address] Calcium [Mass/Vol] 8.7 mg/dL Normal 8.7-10.4 [facility] Comment on above: Performed By: #### A ERIC, CBC, BMP, ADIFF, GFR #### [address] [address] Chloride [Moles/Vol] 99 mmol/L Normal 98-110 [facility] Comment on above: Performed By: #### A ERIC, CBC, BMP, ADIFF, GFR #### [address] [address] CO2 [Moles/Vol] 33 mmol/L High 22-32 [facility] Comment on above: Performed By: #### A ERIC, CBC, BMP, ADIFF, GFR #### [place] [id number] Creatinine [Mass/Vol] 0.67 mg/dL Normal 0.60-1.40 [facility] Comment on above: Result Comment: Test ing performed on [employer] analyzer using enzymatic creatinine methodology. Performed By: #### A ERIC, CBC, BMP, ADIFF, GFR #### [address] [address] Electrolyte Balance 5.0 mEq/L Normal 4.0-15.0 [facility] Comment on above: Performed By: #### A ERIC, CBC, BMP, ADIFF, GFR #### [address] [address] Glucose [Mass/Vol] 115 mg/dL High 70-110 [facility] Comment on above: Performed By: #### A ERIC, CBC, BMP, ADIFF, GFR #### [address] [address] Potassium [Moles/Vol] 3.4 mmol/L Low 3.5-5.0 [facility] Comment on above: Performed By: #### A ERIC, CBC, BMP, ADIFF, GFR #### [address] [address] Sodium [Moles/Vol] 137 mmol/L Normal 136-145 [facility] Comment on above: Performed By: #### A ERIC, CBC, BMP, ADIFF, GFR #### [address] [address] Urea nitrogen [Mass/Vol] 6.0 mg/dL Low 8.0-22.0 [facility] Comment on above: Performed By: #### A ERIC, CBC, BMP, ADIFF, GFR #### [address] [address] BUN/Creatinine Ratio Unable to Calculate Normal 10.0-2 2.0 [facility] Comment on above: Order Comment: Pleas e draw daily labs at 3 AM for 3 days Result Comment: Unab le to calculate this test result accurately. Results used to calculate this test are outside the reportable range. Performed By: #### G , CANDELARIA RANDOLPH, CMP #### [address] [address] Urea nitrogen [Mass/Vol] mg/dL Low 8.0-22.0 [facility] Comment on above: Order Comment: Pleas e draw daily labs at 3 AM for 3 days Performed By: #### G TOMASA DEAN ABOGEL, CMP #### [address] [address] Calcium [Mass/Vol] 9.2 mg/dL Normal 8.7-10.4 [facility] Comment on above: Order Comment: Pleas e draw daily labs at 3 AM for 3 days Performed By: #### G , ABSCANDELARIA HUGGINS, CMP #### [address] [address] Chloride [Moles/Vol] 101 mmol/L Normal 98-110 [facility] Comment on above: Order Comment: Pleas e draw daily labs at 3 AM for 3 days Performed By: #### G , CANDELARIA RANDOLPH, CMP #### [address] [address] CO2 [Moles/Vol] 33 mmol/L High 22-32 [facility] Comment on above: Order Comment: Pleas e draw daily labs at 3 AM for 3 days Performed By: #### G TOMASA DEAN ABOGEL, CMP #### [address] [address] Creatinine [Mass/Vol] 0.63 mg/dL Normal 0.60-1.40 [facility] Comment on above: Order Comment: Pleas e draw daily labs at 3 AM for 3 days Result Comment: Test ing performed on [employer] analyzer using enzymatic creatinine methodology. Performed By: #### G TOMASA DEAN ABOGEL, CMP #### [address] [address] Electrolyte Balance 5.0 mEq/L Normal 4.0-15.0 [facility] Comment on above: Order Comment: Pleas e draw daily labs at 3 AM for 3 days Performed By: #### G TOMASA DEAN ABOGEL, CMP #### [address] [address] Glucose [Mass/Vol] 110 mg/dL Normal 70-110 [facility] Comment on above: Order Comment: Pleas e draw daily labs at 3 AM for 3 days Performed By: #### G TOMASA DEAN ABOGEL, CMP #### [address] [address] Potassium [Moles/Vol] 3.6 mmol/L Normal 3.5-5.0 [facility] Comment on above: Order Comment: Pleas e draw daily labs at 3 AM for 3 days Performed By: #### G TOMASA DEAN ABOGEL, CMP #### [address] [address] Sodium [Moles/Vol] 139 mmol/L Normal 136-145 [facility] Comment on above: Order Comment: Pleas e draw daily labs at 3 AM for 3 days Performed By: #### G TOMASA DEAN ABOGEL, CMP #### [address] [address] CBCon 10-18-2024 Erythrocyte distribution width (RBC) [Ratio] 17.3 % High 11.5-15.5 [facility] Comment on above: Performed By: #### A ERIC, CBC, BMP, ADIFF, GFR #### [place] [address] Hematocrit (Bld) [Volume fraction] 41.4 % Normal 40.0-52.0 [facility] Comment on above: Performed By: #### A ERIC, CBC, BMP, ADIFF, GFR #### [place] [id number] Hgb 13.5 G/dL Normal 13.0-17.5 [facility] Comment on above: Performed By: #### A ERIC, CBC, BMP, ADIFF, GFR #### [address] [address] MCH (RBC) [Entitic mass] 28.9 pg Normal 27.0-33.0 [facility] Comment on above: Performed By: #### A ERIC, CBC, BMP, ADIFF, GFR #### [place] [address] MCHC 32.7 G/dL Normal 32.0-36.0 [facility] Comment on above: Performed By: #### A ERIC, CBC, BMP, ADIFF, GFR #### [place] [id number] MCV (RBC) [Entitic vol] 88.4 fL Normal 81.0-100.0 [facility] Comment on above: Performed By: #### A ERIC, CBC, BMP, ADIFF, GFR #### [place] [id number] Platelet 158 10 3/mcL Normal 150-450 [facility] Comment on above: Performed By: #### A ERIC, CBC, BMP, ADIFF, GFR #### [place] [address] Platelet mean volume (Bld) [Entitic vol] 7.9 fL Normal 6.4-10.5 [facility] Comment on above: Performed By: #### A ERIC, CBC, BMP, ADIFF, GFR #### [place] [id number] RBC 4.68 10 6/mcL Normal 4.50-6.00 [facility] Comment on above: Performed By: #### A ERIC, CBC, BMP, ADIFF, GFR #### [place] [address] WBC 6.1 10 3/mcL Normal 4.5-10.8 [facility] Comment on above: Performed By: #### A ERIC, CBC, BMP, ADIFF, GFR #### [place] [address] Erythrocyte distribution width (RBC) [Ratio] 16.9 % High 11.5-15.5 [facility] Comment on above: Order Comment: Colle ct blood every day at 3 AM for the next 3 days. Performed By: #### G FR, BMP, CBC, MG, ADIFF, ANEU #### [place] [address] Hematocrit (Bld) [Volume fraction] 41.4 % Normal 40.0-52.0 [facility] Comment on above: Order Comment: Colle ct blood every day at 3 AM for the next 3 days. Performed By: #### G FR, BMP, CBC, MG, ADIFF, ANEU #### [place] [address] Hgb 13.6 G/dL Normal 13.0-17.5 [facility] Comment on above: Order Comment: Colle ct blood every day at 3 AM for the next 3 days. Performed By: #### G FR, BMP, CBC, MG, ADIFF, ANEU #### [place] [address] MCH (RBC) [Entitic mass] 29.0 pg Normal 27.0-33.0 [facility] Comment on above: Order Comment: Colle ct blood every day at 3 AM for the next 3 days. Performed By: #### G FR, BMP, CBC, MG, ADIFF, ANEU #### [place] [address] MCHC 32.8 G/dL Normal 32.0-36.0 [facility] Comment on above: Order Comment: Colle ct blood every day at 3 AM for the next 3 days. Performed By: #### G FR, BMP, CBC, MG, ADIFF, ANEU #### [place] [address] MCV (RBC) [Entitic vol] 88.3 fL Normal 81.0-100.0 [facility] Comment on above: Order Comment: Colle ct blood every day at 3 AM for the next 3 days. Performed By: #### G FR, BMP, CBC, MG, ADIFF, ANEU #### [place] [address] Platelet 127 10 3/mcL Low 150-450 [facility] Comment on above: Order Comment: Colle ct blood every day at 3 AM for the next 3 days. Performed By: #### G FR, BMP, CBC, MG, ADIFF, ANEU #### [place] [address] Platelet mean volume (Bld) [Entitic vol] 7.7 fL Normal 6.4-10.5 [facility] Comment on above: Order Comment: Colle ct blood every day at 3 AM for the next 3 days. Performed By: #### G FR, BMP, CBC, MG, ADIFF, ANEU #### [place] [address] RBC 4.70 10 6/mcL Normal 4.50-6.00 [facility] Comment on above: Order Comment: Colle ct blood every day at 3 AM for the next 3 days. Performed By: #### G FR, BMP, CBC, MG, ADIFF, ANEU #### [place] [address] WBC 4.6 10 3/mcL Normal 4.5-10.8 [facility] Comment on above: Order Comment: Colle ct blood every day at 3 AM for the next 3 days. Performed By: #### G FR, BMP, CBC, MG, ADIFF, ANEU #### [place] [address] LABORATORYOrdered By: SYSTEM SYSTEM on 10-18-2024 Basophils [...] above: Interpretive Data: T esting performed on [employer] analyzer using enzymatic creatinine methodology. Electrolyte Balance [...] 41.4 % Normal 40.0 - 52.0 % Workflow [...] mEq/L AH ADM SS Urea nitrogen [Mass/Vol] 6.0 mg/dL Low 8.0 - 22.0 mg/dL AH ADM SS Urea nitrogen/Creatinine [Mass ratio] 9.0 ratio Low 10.0 - 22.0 ratio AH ADM SS WBC (Bld) [#/Vol] 6.1 103/mcL Normal 4.5 - 10.8 10^3/mcL AH Workflow SS .Auto Diffon 10-17-2024 Basophil, Absolute 0.0 10 3/mcL Normal 0.0-0.3 [facility] Comment on above: Performed By: #### G , CANDELARIA RANDOLPH, CMP #### [address] [address] Basophils/100 WBC (Bld) 0.6 % Normal 0.0-2.5 [facility] Comment on above: Performed By: #### TOMASA DIETRICH ABOGEL, CMP #### [address] [address] Eosinophil, Absolute 0.1 10 3/mcL Normal 0.0-0.[address] [facility] Comment on above: Performed By: #### TOMASA DIETRICH ABOGEL, CMP #### [address] [address] Eosinophils/100 WBC (Bld) 1.1 % Normal 0.0-6.0 [facility] Comment on above: Performed By: #### TOMASA DIETRICH ABOGEL, CMP #### [address] [address] Lymphocyte, Absolute 0.9 10 3/mcL Normal 0.9-4.[address] [facility] Comment on above: Performed By: #### TOMASA DIETRICH ABOGEL, CMP #### [address] [address] Lymphocytes/100 WBC (Bld) 17.7 % Low 20.0-40.0 [facility] Comment on above: Performed By: #### TOMASA DIETRICH ABOGEL, CMP #### [address] [address] Monocyte, Absolute 0.6 10 3/mcL Normal 0.1-1.4 [facility] Comment on above: Performed By: #### TOMASA DIETRICH ABOGEL, CMP #### [address] [address] Monocytes/100 WBC (Bld) 11.1 % Normal 2.0-13.0 [facility] Comment on above: Performed By: #### TOMASA DIETRICH ABOGEL, CMP #### [address] [address] Neutrophils/100 WBC (Bld) 69.5 % Normal 50.0-75.0 [facility] Comment on above: Performed By: #### TOMASA DIETRICH ABOGEL, CMP #### [address] [address] .GFRon 10-17-2024 Estimated Glomerular Filtration Rate 113 ml/min/1.73sqm Normal [facility] Comment on above: Result Comment: [...] calculate the eGFR results. Performed By: #### TOMASA DIETRICH ABOGEL, CMP #### [address] [address] .NEUABSon 10-17-2024 Neutrophil, Absolute 3.7 10 3/mcL Normal 2.3-8.[address] [facility] Comment on above: Performed By: #### TOMASA DIETRICH ABOGEL, CMP #### [address] [address] BMPon 10-17-2024 BUN/Creatinine Ratio 7.7 ratio Low 10.0-22.0 [facility] Comment on above: Performed By: #### TOMASA DIETRICH ABOGEL CMP #### [address] [address] Calcium [Mass/Vol] 8.5 mg/dL Low 8.7-10.4 [facility] Comment on above: Performed By: #### TOMASA DIETRICH ABOGEL CMP #### [address] [address] Chloride [Moles/Vol] 101 mmol/L Normal 98-110 [facility] Comment on above: Performed By: #### TOMASA DIETRICH ABOGEL CMP #### [address] [address] CO2 [Moles/Vol] 31 mmol/L Normal 22-32 [facility] Comment on above: Performed By: #### TOMASA DIETRICH ABOGEL CMP #### [address] [address] Creatinine [Mass/Vol] 0.65 mg/dL Normal 0.60-1.40 [facility] Comment on above: Result Comment: Test ing performed on [employer] analyzer using enzymatic creatinine methodology. Performed By: #### TOMASA DIETRICH ABOGEL, CMP #### [address] [address] Electrolyte Balance 7.0 mEq/L Normal 4.0-15.0 [facility] Comment on above: Performed By: #### TOMASA DIETRICH ABOGEL, CMP #### [address] [address] Glucose [Mass/Vol] 120 mg/dL High 70-110 [facility] Comment on above: Performed By: #### TOMASA DIETRICH ABOGEL, CMP #### [address] [address] Potassium [Moles/Vol] 3.3 mmol/L Low 3.5-5.0 [facility] Comment on above: Performed By: #### TOMASA DIETRICH ABOGEL, CMP #### [address] [address] Sodium [Moles/Vol] 139 mmol/L Normal 136-145 [facility] Comment on above: Performed By: #### TOMASA DIETRICH ABOGEL, CMP #### [address] [address] Urea nitrogen [Mass/Vol] 5.0 mg/dL Low 8.0-22.0 [facility] Comment on above: Performed By: #### TOMASA DIETRICH ABOGEL, CMP #### [address] [address] CBCon 10-17-2024 Erythrocyte distribution width (RBC) [Ratio] 17.0 % High 11.5-15.5 [facility] Comment on above: Performed By: #### G FR, CANDELARIA RANDOLPH, CMP #### [place] [address] Hematocrit (Bld) [Volume fraction] 40.3 % Normal 40.0-52.0 [facility] Comment on above: Performed By: #### G FR, MEGHAN RANDOLPHGEL, CMP #### [place] [address] Hgb 13.2 G/dL Normal 13.0-17.5 [facility] Comment on above: Performed By: #### G FR, CANDELARIA RANDOLPH, CMP #### [place] [address] MCH (RBC) [Entitic mass] 28.6 pg Normal 27.0-33.0 [facility] Comment on above: Performed By: #### G FR, CANDELARIA RANDOLPH, CMP #### [place] [address] MCHC 32.6 G/dL Normal 32.0-36.0 [facility] Comment on above: Performed By: #### G FR, CANDELARIA RANDOLPH, CMP #### [place] [address] MCV (RBC) [Entitic vol] 87.6 fL Normal 81.0-100.0 [facility] Comment on above: Performed By: #### G FR, CANDELARIA RANDOLPH, CMP #### [place] [address] Platelet 132 10 3/mcL Low 150-450 [facility] Comment on above: Performed By: #### G FR, ABSJOSELUIS, ABOGEL, CMP #### [place] [address] Platelet mean volume (Bld) [Entitic vol] 7.8 fL Normal 6.4-10.5 [facility] Comment on above: Performed By: #### G FR, ABSGEL, ABOGEL, CMP #### [place] [address] RBC 4.60 10 6/mcL Normal 4.50-6.00 [facility] Comment on above: Performed By: #### G TOMASA DEAN ABOGEL, CMP #### [facility] [address] [place] [address] WBC 5.4 10 3/mcL Normal 4.5-10.8 [facility] Comment on above: Performed By: #### G TOMASA DEAN ABOGEL, CMP #### [facility] [address] [place] [id number] ANKLE W/O CONTRAST RIGHTo n 10-17-2024 [...] spanning external fixator, multiplanar 10/17. transfer from [facility]. for right ankle fracture with dislocation. Surgical [...] Sign Date: 10/17/2024 1:17:29 PM Ordering Provider: SUZE MISHRA [facility] MAIN LABORATORYOrdered By: SYSTEM SYSTEM on 10-17-2024 PT Coag (PPP) [Time] 13.7 s Normal 9.0 - 1 4.4 seconds Lala Comment on above: Interpretive Data: E ffective 12/11/07, Protime results may be affected by some antibiotics (i.e. Ciprofloxacin, Azithromycin, Bactrim) which may potentiate the action of oral anticoagulants, with further increases in Protime/INR. PT International Ratio 1.2 ratio Invalid Interpretation Code Lala HASSAN Comment on above: Interpretive Data: Baljinder linn [employer] (CHEST, 1991, 102:312S-25S) recommended therapeutic range for oral anticoagulant therapy is: LOW RISK: Prophylaxis of venous thrombosis INR: 2.0-3.0 Treatment of pulmonary embolism 2.0-3.0 Prevention of systemic embolism 2.0-3.0 HIGH RISK: Mechanical prosthetic valves 2.5-3.5 PROon 10-17-2024 INR Coag (PPP) [Relative time] 1.2 {INR} [facility] Comment on above: Result Comment: [employer] (CHEST, 1991, 102:312S-25S) recommended therapeutic range for oral anticoagulant therapy is: LOW RISK: Prophylaxis of venous thrombosis INR: 2.0-3.0 Treatment of pulmonary embolism 2.0-3.0 Prevention of systemic embolism 2.0-3.0 HIGH RISK: Mechanical prosthetic valves 2.5-3.5 Performed By: #### A ERIC, CBC, BMP, ADIFF, GFR #### [place] [address] PT Coag (PPP) [Time] 13.7 s Normal 9.0-14.4 [facility] Comment on above: Result Comment: Effe ctive 12/11/07, Protime results may be affected by some antibiotics (i.e. Ciprofloxacin, Azithromycin, Bactrim) which may potentiate the action of oral anticoagulants, with further increases in Protime/INR. Performed By: #### A ERIC, CBC, BMP, ADIFF, GFR #### [address] [address] XR FLUORO 1-2 HRS TECH TIMEo n [...] Intraoperative fluoroscopic images. Please refer to the chipping machine operator's report for further information. I have personally reviewed the images of this examination and agree with the resident's findings and interpretation. Interpreted by: Beau Wahl Preliminary Report By: Nadya Hudson Electronically signed By Beau Wahl Dictated Date: 10/17/2024 1:42:02 PM Prelim Date: 10/17/2024 2:15:08 PM Sign Date: 10/17/2024 2:15:08 PM Ordering Provider: NANI Kate [facility] .Auto Diffon 10-16-2024 Basophil, Absolute 0.1 10 3/mcL Normal 0.0-0.3 [facility] Comment on above: Performed By: #### A ERIC, CBC, BMP, ADIFF, GFR #### [address] [address] Basophils/100 WBC (Bld) 0.8 % Normal 0.0-2.5 [facility] Comment on above: Performed By: #### A ERIC, CBC, BMP, ADIFF, GFR #### [address] [address] Eosinophil, Absolute 0.1 10 3/mcL Normal 0.0-0.[address] [facility] Comment on above: Performed By: #### A ERIC, CBC, BMP, ADIFF, GFR #### [address] [address] Eosinophils/100 WBC (Bld) 1.2 % Normal 0.0-6.0 [facility] Comment on above: Performed By: #### A ERIC, CBC, BMP, ADIFF, GFR #### [address] [address] Lymphocyte, Absolute 1.4 10 3/mcL Normal 0.9-4.[address] [facility] Comment on above: Performed By: #### A ERIC, CBC, BMP, ADIFF, GFR #### [address] [address] Lymphocytes/100 WBC (Bld) 19.8 % Low 20.0-40.0 [facility] Comment on above: Performed By: #### A ERIC, CBC, BMP, ADIFF, GFR #### [address] [address] Monocyte, Absolute 0.7 10 3/mcL Normal 0.1-1.4 [facility] Comment on above: Performed By: #### A ERIC, CBC, BMP, ADIFF, GFR #### [address] [address] Monocytes/100 WBC (Bld) 10.7 % Normal 2.0-13.0 [facility] Comment on above: Performed By: #### A ERIC, CBC, BMP, ADIFF, GFR #### [address] [address] Neutrophils/100 WBC (Bld) 67.5 % Normal 50.0-75.0 [facility] Comment on above: Performed By: #### A ERIC, CBC, BMP, ADIFF, GFR #### [address] [address] Basophil, Absolute 0.0 10 3/mcL Normal 0.0-0.3 [facility] Comment on above: Performed By: #### G FR, BMP, CBC, MG, ADIFF, ANEU #### [address] [address] Basophils/100 WBC (Bld) 0.7 % Normal 0.0-2.5 [facility] Comment on above: Performed By: #### G FR, BMP, CBC, MG, ADIFF, ANEU #### [address] [address] Eosinophil, Absolute 0.1 10 3/mcL Normal 0.0-0.[address] [facility] Comment on above: Performed By: #### G FR, BMP, CBC, MG, ADIFF, ANEU #### [address] [address] Eosinophils/100 WBC (Bld) 0.8 % Normal 0.0-6.0 [facility] Comment on above: Performed By: #### G FR, BMP, CBC, MG, ADIFF, ANEU #### [address] [address] Lymphocyte, Absolute 1.1 10 3/mcL Normal 0.9-4.[address] [facility] Comment on above: Performed By: #### G FR, BMP, CBC, MG, ADIFF, ANEU #### [address] [address] Lymphocytes/100 WBC (Bld) 17.2 % Low 20.0-40.0 [facility] Comment on above: Performed By: #### G FR, BMP, CBC, MG, ADIFF, ANEU #### [address] [address] Monocyte, Absolute 0.6 10 3/mcL Normal 0.1-1.4 [facility] Comment on above: Performed By: #### G FR, BMP, CBC, MG, ADIFF, ANEU #### [address] [address] Monocytes/100 WBC (Bld) 8.7 % Normal 2.0-13.0 [facility] Comment on above: Performed By: #### G FR, BMP, CBC, MG, ADIFF, ANEU #### [address] [address] Neutrophils/100 WBC (Bld) 72.6 % Normal 50.0-75.0 [facility] Comment on above: Performed By: #### G FR, BMP, CBC, MG, ADIFF, ANEU #### [address] [address] .GFRon 10-16-2024 Estimated Glomerular Filtration Rate 110 ml/min/1.73sqm Normal [facility] Comment on above: Result Comment: [...] calculate the eGFR results. Performed By: #### G FR, ABSGEL, ABOGEL, CMP #### [place] [address] Estimated Glomerular Filtration Rate 111 ml/min/1.73sqm [facility] Comment on above: Result Comment: [...] calculate the eGFR results. Performed By: #### G FR, BMP, CBC, MG, ADIFF, ANEU #### [address] [address] .MDWon 10-16-2024 Monocyte Distribution Width 19.45 Normal 0.00-20.00 [facility] Comment on above: Result Comment: For ED adult patients suspected of sepsis, MDW<=20.0 does not rule out sepsis or risk of sepsis Performed By: #### A ERIC, CBC, BMP, ADIFF, GFR #### [address] [address] Monocyte Distribution Width 17.52 Normal 0.00-20.00 [facility] Comment on above: Result Comment: For ED adult patients suspected of sepsis, MDW<=20.0 does not rule out sepsis or risk of sepsis Performed By: #### G FR, BMP, CBC, MG, ADIFF, ANEU #### [address] [address] .NEUABSon 10-16-2024 Neutrophil, Absolute 4.7 10 3/mcL Normal 2.3-8.[address] [facility] Comment on above: Performed By: #### A ERIC, CBC, BMP, ADIFF, GFR #### [address] [address] Neutrophil, Absolute 4.7 10 3/mcL Normal 2.3-8.[address] [facility] Comment on above: Performed By: #### G FR, BMP, CBC, MG, ADIFF, ANEU #### [address] [address] ABO/Rh (Gel)on 10-16-2024 ABO/Rh Interp Positive Invalid Interpretation Code [facility] Comment on above: Performed By: #### G FR, ABSGEL, ABOGEL, CMP #### [address] [address] ABS (Gel)on 10-16-2024 ABSC Interp (Gel) Negative Normal [facility] Comment on above: Performed By: #### G FR, ABSGEL, ABOGEL, CMP #### [address] [address] Stefanie 10-16-2024 Ethanol Level <10.0 Normal [facility] Comment on above: Performed By: #### G FR, BMP, CBC, MG, ADIFF, ANEU #### [address] [address] ANKLE COMPLETE RTon 10-17-19 25 ANKLE COMPLETE RT [place] [address] Patient: CARLOS ALBERTO KELLEY Phone#: : [phone] Age: 54 Gender: M Pt. Type: ER Account: [id number] Location: 05 Ordering: JAKE MAXWELL Exam Date: 10/16/2024/13:23 Family Phys: Charge Code: 034868 Physician: [place] Order #: [id number] Dose#: PROCEDURE: X-RAY ANKLE COMPLETE RT MIN [...] Bagley MD on 10/16/2024 at 14:15 Normal [facility] BMPon 10-16-2024 BUN/Creatinine Ratio 15.9 ratio Normal 10.0-22.0 [facility] Comment on above: Performed By: #### G FR, BMP, CBC, MG, ADIFF, ANEU #### [address] [address] Calcium [Mass/Vol] 9.4 mg/dL Normal 8.7-10.4 [facility] Comment on above: Performed By: #### G FR, BMP, CBC, MG, ADIFF, ANEU #### [address] [address] Chloride [Moles/Vol] 103 mmol/L Normal 98-110 [facility] Comment on above: Performed By: #### G FR, BMP, CBC, MG, ADIFF, ANEU #### [address] [address] CO2 [Moles/Vol] 32 mmol/L Normal 22-32 [facility] Comment on above: Performed By: #### G FR, BMP, CBC, MG, ADIFF, ANEU #### [address] [address] Creatinine [Mass/Vol] 0.69 mg/dL Normal 0.60-1.40 [facility] Comment on above: Result Comment: Test ing performed on [employer] analyzer using enzymatic creatinine methodology. Performed By: #### G FR, BMP, CBC, MG, ADIFF, ANEU #### [address] [address] Electrolyte Balance 5.0 mEq/L Normal 4.0-15.0 [facility] Comment on above: Performed By: #### G FR, BMP, CBC, MG, ADIFF, ANEU #### [place] [id number] Glucose [Mass/Vol] 94 mg/dL Normal 70-110 [facility] Comment on above: Performed By: #### G FR, BMP, CBC, MG, ADIFF, ANEU #### [address] [address] Potassium [Moles/Vol] 3.6 mmol/L Normal 3.5-5.0 [facility] Comment on above: Performed By: #### G FR, BMP, CBC, MG, ADIFF, ANEU #### [address] [address] Sodium [Moles/Vol] 140 mmol/L Normal 136-145 [facility] Comment on above: Performed By: #### G FR, BMP, CBC, MG, ADIFF, ANEU #### [address] [address] Urea nitrogen [Mass/Vol] 11.0 mg/dL Normal 8.0-22.0 [facility] Comment on above: Performed By: #### G FR, BMP, CBC, MG, ADIFF, ANEU #### [address] [address] CBCon 10-16-2024 Erythrocyte distribution width (RBC) [Ratio] 16.5 % High 11.5-15.5 [facility] Comment on above: Performed By: #### A ERIC, CBC, BMP, ADIFF, GFR #### [place] [address] Hematocrit (Bld) [Volume fraction] 45.2 % Normal 40.0-52.0 [facility] Comment on above: Performed By: #### A ERIC, CBC, BMP, ADIFF, GFR #### [place] [address] Hgb 14.8 G/dL Normal 13.0-17.5 [facility] Comment on above: Performed By: #### A ERIC, CBC, BMP, ADIFF, GFR #### [place] [id number] MCH (RBC) [Entitic mass] 28.8 pg Normal 27.0-33.0 [facility] Comment on above: Performed By: #### A ERIC, CBC, BMP, ADIFF, GFR #### [place] [address] MCHC 32.8 G/dL Normal 32.0-36.0 [facility] Comment on above: Performed By: #### A ERCI, CBC, BMP, ADIFF, GFR #### [place] [address] MCV (RBC) [Entitic vol] 87.8 fL Normal 81.0-100.0 [facility] Comment on above: Performed By: #### A ERIC, CBC, BMP, ADIFF, GFR #### [place] [id number] Platelet 172 10 3/mcL Normal 150-450 [facility] Comment on above: Performed By: #### A ERIC, CBC, BMP, ADIFF, GFR #### [place] [id number] Platelet mean volume (Bld) [Entitic vol] 7.9 fL Normal 6.4-10.5 [facility] Comment on above: Performed By: #### A ERIC, CBC, BMP, ADIFF, GFR #### [place] [id number] RBC 5.14 10 6/mcL Normal 4.50-6.00 [facility] Comment on above: Performed By: #### A ERIC, CBC, BMP, ADIFF, GFR #### [place] [id number] WBC 6.9 10 3/mcL Normal 4.5-10.8 [facility] Comment on above: Performed By: #### A ERIC, CBC, BMP, ADIFF, GFR #### [place] [address] Erythrocyte distribution width (RBC) [Ratio] 17.1 % High 11.5-15.5 [facility] Comment on above: Performed By: #### G FR, BMP, CBC, MG, ADIFF, ANEU #### [place] [address] Hematocrit (Bld) [Volume fraction] 43.2 % Normal 40.0-52.0 [facility] Comment on above: Performed By: #### G FR, BMP, CBC, MG, ADIFF, ANEU #### [place] [address] Hgb 14.3 G/dL Normal 13.0-17.5 [facility] Comment on above: Performed By: #### G FR, BMP, CBC, MG, ADIFF, ANEU #### [place] [id number] MCH (RBC) [Entitic mass] 28.9 pg Normal 27.0-33.0 [facility] Comment on above: Performed By: #### G FR, BMP, CBC, MG, ADIFF, ANEU #### [place] [id number] MCHC 33.0 G/dL Normal 32.0-36.0 [facility] Comment on above: Performed By: #### G FR, BMP, CBC, MG, ADIFF, ANEU #### [place] [id number] MCV (RBC) [Entitic vol] 87.4 fL Normal 81.0-100.0 [facility] Comment on above: Performed By: #### G FR, BMP, CBC, MG, ADIFF, ANEU #### [address] [address] Platelet 152 10 3/mcL Normal 150-450 [facility] Comment on above: Performed By: #### G FR, BMP, CBC, MG, ADIFF, ANEU #### [address] [address] Platelet mean volume (Bld) [Entitic vol] 7.7 fL Normal 6.4-10.5 [facility] Comment on above: Performed By: #### G FR, BMP, CBC, MG, ADIFF, ANEU #### [address] [address] RBC 4.94 10 6/mcL Normal 4.50-6.00 [facility] Comment on above: Performed By: #### G FR, BMP, CBC, MG, ADIFF, ANEU #### [address] [address] WBC 6.5 10 3/mcL Normal 4.5-10.8 [facility] Comment on above: Performed By: #### G FR, BMP, CBC, MG, ADIFF, ANEU #### [place] [id number] CBC + DIFFon 10-16-2024 Baso # 0.01 x10EE3/UL Normal 0.00 - 0.10 [facility] Comment on above: Performed By: #### 2 [address] #### [facility],[address] [place] [address] Basophils/100 WBC (Bld) 0.2 % Normal 0.0 - 2.0 [facility] Comment on above: Performed By: #### 2 75270 #### [facility],[address] [place] [address] CBC + DIFF Normal [facility] Comment on above: Result Comment: CBC- COMPLETE BLOOD COUNT Performed By: #### 2 64686 #### [facility],[address] [place] [address] EO # 0.04 x10EE3/UL Normal 0.00 - 0.50 [facility] Comment on above: Performed By: #### 2 41308 #### [facility],[address] [place], [place] [id number] Eosinophils/100 WBC (Bld) 0.7 % Normal 0.0 - 7.0 [facility] Comment on above: Performed By: #### 2 94365 #### [facility],[address] [place] [address] Erythrocyte distribution width (RBC) [Ratio] 15.2 % Normal 12.0 - 15.6 [facility] Comment on above: Performed By: #### 2 07397 #### [facility],[address] [place] [address] Hematocrit (Bld) [Volume fraction] 44.1 % Normal 40.0 - 52.0 [facility] Comment on above: Performed By: #### 2 85873 #### [facility],[address] [place] [address] Hemoglobin (Bld) [Mass/Vol] 15.4 g/dL Normal 13.0 - 17.5 [facility] Comment on above: Performed By: #### 2 02162 #### [facility],[address] [place] [address] Lymph # 0.96 x10EE3/UL Normal 0.80 - 2.80 [facility] Comment on above: Performed By: #### 2 28536 #### [facility],[address] [place], [place] [phone] Lymphocytes/100 WBC (Bld) 17.1 % Low 20.0 - 45.0 [facility] Comment on above: Performed By: #### 2 63491 #### [facility],[address] [place], [place] [phone] MANUAL DIFF N/A Normal [facility] Comment on above: Performed By: #### 2 15170 #### [facility],[address] [place] [address] MCH (RBC) [Entitic mass] 31 pg Normal 27 - 33 [facility] Comment on above: Performed By: #### 2 35553 #### [facility],[address] [place] [address] MCHC 35 X10 3 Normal 32 - 36 [facility] Comment on above: Performed By: #### 2 85031 #### [facility],[address] [place] [address] MCV (RBC) [Entitic vol] 88 fL Normal 81 - 98 [facility] Comment on above: Performed By: #### 2 84599 #### [facility],[address] [place] [address] Pershing # 0.47 x10EE3/UL Normal 0.20 - 1.00 [facility] Comment on above: Performed By: #### 2 72001 #### [facility],[address] [place] [address] MONOS % 8.4 % Normal 0.0 - 10.0 [facility] Comment on above: Performed By: #### 2 96073 #### [facility],[address] [place] [address] Morphology Rocky (Bld) [Interp] N/A Normal [facility] Comment on above: Performed By: #### 2 74231 #### [facility],[address] [place] [address] Neut # 4.12 x10EE3/UL Normal 1.50 - 7.10 [facility] Comment on above: Performed By: #### 2 30971 #### [facility],[address] [place] [address] Neutrophils/100 WBC (Bld) 73.6 % Normal 46.0 - 76.0 [facility] Comment on above: Performed By: #### 2 87114 #### [facility],[address] [place] [address] PLATELET 148 x10EE3/UL Low 150 - 450 [facility] Comment on above: Performed By: #### 2 74965 #### [facility],[address] [place] [address] Platelet mean volume (Bld) [Entitic vol] 8.1 fL Normal 6.4 - 10.5 [facility] Comment on above: Result Comment: AUTO MATED DIFFERENTIAL Performed By: #### 2 71572 #### [facility],[address] [place] [address] RBC 5.02 x 10EE6/UL Normal 4.50 - 6.00 [facility] Comment on above: Performed By: #### 2 55380 #### [facility],[address] [place] [address] WBC 5.6 x 10EE3/UL Normal 4.5 - 10.8 [facility] Comment on above: Performed By: #### 2 47998 #### [facility],[address] [place], [place] [phone] CMPon 10-16-2024 Albumin Level 3.6 G/dL Normal 3.2-4.8 [facility] Comment on above: Performed By: #### G TOMASA DEAN ABOGEL, CMP #### [address] [address] Albumin/Globulin [Mass ratio] 1.0 {ratio} Normal 0.9-1.6 [facility] Comment on above: Performed By: #### G , ABSCANDELARIA HUGGINS, CMP #### [address] [address] ALP [Catalytic activity/Vol] 70 U/L Normal 38-126 [facility] Comment on above: Performed By: #### G FR, ABSJOSELUIS ABOJOSELUIS, CMP #### [facility] [address] [place] [address] ALT [Catalytic activity/Vol] 12 U/L Normal 12-55 [facility] Comment on above: Performed By: #### G FR, ABSGEL, ABOGEL, CMP #### [address] [address] AST [Catalytic activity/Vol] 17 U/L Normal 8-34 [facility] Comment on above: Performed By: #### TOMASA DIETRICH ABOGEL, CMP #### [address] [address] Bili Total 0.60 mg/dL Normal 0.20-1.20 [facility] Comment on above: Result Comment: Use of this assay is not recommended for patients undergoing treatment with eltrombopag due to the potential for falsely elevated results. Performed By: #### TOMASA DIETRICH ABOGEL, CMP #### [address] [address] BUN/Creatinine Ratio 14.1 ratio Normal 10.0-22.0 [facility] Comment on above: Performed By: #### TOMASA DIETRICH ABOGEL CMP #### [address] [address] Calcium [Mass/Vol] 9.0 mg/dL Normal 8.7-10.4 [facility] Comment on above: Performed By: #### TOMASA DIETRICH ABOGEL, CMP #### [address] [address] Chloride [Moles/Vol] 102 mmol/L Normal 98-110 [facility] Comment on above: Performed By: #### TOMASA DIETRICH ABOGEL, CMP #### [address] [address] CO2 [Moles/Vol] 33 mmol/L High 22-32 [facility] Comment on above: Performed By: #### TOMASA DIETRICH ABOGEL, CMP #### [address] [address] Creatinine [Mass/Vol] 0.71 mg/dL Normal 0.60-1.40 [facility] Comment on above: Result Comment: Test ing performed on [employer] analyzer using enzymatic creatinine methodology. Performed By: #### TOMASA DIETRICH ABOGEL, CMP #### [address] [address] Electrolyte Balance 4.0 mEq/L Normal 4.0-15.0 [facility] Comment on above: Performed By: #### TOMASA DIETRICH ABOGEL, CMP #### [address] [address] Globulin 3.5 G/dL Normal 2.5-4.2 [facility] Comment on above: Performed By: #### TOMASA DIETRICH ABOGEL, CMP #### [address] [address] Glucose [Mass/Vol] 109 mg/dL Normal 70-110 [facility] Comment on above: Performed By: #### TOMASA DIETRICH ABOGEL, CMP #### [address] [address] Potassium [Moles/Vol] 3.7 mmol/L Normal 3.5-5.0 [facility] Comment on above: Performed By: #### TOMASA DIETRICH ABOGEL, CMP #### [address] [address] Sodium [Moles/Vol] 139 mmol/L Normal 136-145 [facility] Comment on above: Performed By: #### TOMASA DIETRICH ABOGEL, CMP #### [address] [address] Total Protein 7.1 G/dL Normal 5.7-8.2 [facility] Comment on above: Performed By: #### TOMASA DIETRICH ABOGEL, CMP #### [address] [address] Urea nitrogen [Mass/Vol] 10.0 mg/dL Normal 8.0-22.0 [facility] Comment on above: Performed By: #### TOMASA DIETRICH ABOGEL, CMP #### [address] [address] CMP with eGFRon 10-16-2024 AGE 54 years Normal [facility] Comment on above: Performed By: #### 2 03759 ####[facility],[address] [place] [address] Albumin [Mass/Vol] 3.4 g/dL Normal 3.4 - 5.0 [facility] Comment on above: Performed By: #### 2 31125 ####[facility],[address] [place] [address] Albumin/Globulin [Mass ratio] 0.9 {ratio} Normal 0.9 - 1.6 [facility] Comment on above: Performed By: #### 2 67949 ####[facility],[address] [place] [address] ALK PHOS 76 U/L Normal 46 - 116 [facility] Comment on above: Performed By: #### 2 08799 ####[facility],[address] [place] [address] ALT [Catalytic activity/Vol] 17 U/L Normal 16 - 63 [facility] Comment on above: Performed By: #### 2 46994 ####[facility],[address] [place] [address] Anion gap [Moles/Vol] 11 mmol/L Normal 10 - 20 [facility] Comment on above: Performed By: #### 2 52750 ####[facility],[address] [place] [address] AST [Catalytic activity/Vol] 17 U/L Normal 15 - 37 [facility] Comment on above: Performed By: #### 2 47632 ####[facility],[address] [place] [address] B/C RATIO 13 ratio Normal 0 - 30 [facility] Comment on above: Performed By: #### 2 68268 ####[facility],[address] [place] [address] Bilirubin [Mass/Vol] 0.5 mg/dL Normal 0.2 - 1.0 [facility] Comment on above: Performed By: #### 2 04323 ####[facility],[address] [place] [address] Calcium [Mass/Vol] 8.9 mg/dL Normal 8.5 - 10.1 [facility] Comment on above: Performed By: #### 2 71848 ####[facility],[address] [place] [address] Chloride [Moles/Vol] 101 mmol/L Normal 98 - 107 [facility] Comment on above: Performed By: #### 2 40208 ####[facility],[address] [place] [address] CMP with eGFR Normal [facility] Comment on above: Result Comment: COMP REHENSIVE METABOLIC PANEL Performed By: #### 2 13903 ####[facility],[address] [place] [address] CO2 [Moles/Vol] 30.7 mmol/L Normal 21.0 - 32.0 [facility] Comment on above: Performed By: #### 2 98605 ####[facility],[address] [place] [address] Creatinine [Mass/Vol] 0.96 mg/dL Normal 0.70 - 1.30 [facility] Comment on above: Performed By: #### 2 85874 ####[facility],[address] [place] [address] GFR/1.73 sq M.predicted among non-blacks MDRD (S/P/Bld) [Vol rate/Area] mL/min/{1.73_m2} Normal 60 - 999 [facility] Comment on above: Performed By: #### 2 70133 ####[facility],[address] [place] [address] Result Comment: ACCO RDING TO THE NATIONAL KIDNEY DISEASE EDUCATION PROGRAM(NKDE), A NORMAL eGFR IS A VALUE GREATER THAN OR EQUAL TO 60 ML/MIN/1.73 SQ METERS. CHRONIC KIDNEY DISEASE: <60mL/MIN/1.73 SQ METERS KIDNEY FAILURE: <15mL/MIN/1.73 SQ METERS THIS TEST SHOULD ONLY BE USED FOR PATIENTS 18 YEARS OF AGE AND OLDER. Globulin (S) [Mass/Vol] 3.7 g/dL Normal 1.5 - 3.8 [facility] Comment on above: Performed By: #### 2 41029 ####[facility],[address] [place] [address] Glucose [Mass/Vol] 94 mg/dL Normal 74 - 106 [facility] Comment on above: Performed By: #### 2 26726 ####[facility],[address] [place] [address] Potassium [Moles/Vol] 3.6 mmol/L Normal 3.5 - 5.1 [facility] Comment on above: Performed By: #### 2 [id number] ####[address] [address] Protein [Mass/Vol] 7.1 g/dL Normal 6.4 - 8.2 [facility] Comment on above: Performed By: #### 2 [id number] ####[address] [address] Sodium [Moles/Vol] 139 mmol/L Normal 136 - 145 [facility] Comment on above: Performed By: #### 2 47222 ####[address] [address] Urea nitrogen [Mass/Vol] 12 mg/dL Normal 7 - 18 [facility] Comment on above: Performed By: #### 2 84197 ####[address] [address] ED MED ADMINISTRATION DETAIL on 10-16-2024 ED MED ADMINISTRATION DETAIL [employer] Medication Administration Record [address] [address] [id number] 10/16/2024 Patient: CARLOS ALBERTO KELLEY Sex: Male : 1970 Age: 54y MEASUREMENTS: Wt: 140.2 kg, Ht/Wilson: 69.0 in, BMI: 45.63 ALLERGIES: Siayhcx-IOO-XwX Reductase Inhibitors Medication Ordered Medication Administration Date/Time [...] mg wasted. - 13:14 Destiney Chu R.N. 14:10/16 Medication Response: No adverse reaction. Pain is improving. Symptoms have improved. The patient feels better. - 14:11 Destiney Chu R.N. 1 of 1 Normal [facility] ED NURSES CLINICAL NOTEon ED NURSES CLINICAL NOTE Nurse Narrative Nurse Clinical Narrative [address] [place] [address] [id number] 10/16/2024 12:34:00 Patient: CARLOS ALBERTO KELLEY Sex: Male : 1970 Age: 54y Disposition: Transfer to [facility] Disposition Decision Time: 14:27 10/16/2024 Departure Time: [...] had swelling, redness and trouble walking. Treatment LEGAL REFEREE: Ice. SEPSIS SCREEN: NEGATIVE. SIRS criteria negative. No possible sources of infection. -- 12:47 10/16/24 EDT Silvina Maguire R.N. 12:47 10/16/24. BP: 171/95 MAP: 120. HR: 93. RR: 18. O2 saturation: 93% Temperature: 98.9 F. Pain level now 03/07. -- 12:47 10/16/24 [facility] Silvina Maguire R.N. Measurements: 12:45 10/16/24 Wt: 140.2 kg, Ht/Wilson: 69.0 in, BMI: 45.63 -- 12:45 10/16/24 [facility] Silvina Maguire R.N. 1 of 5 Nurse Narrative Medications: omeprazole 40 mg capsule,delayed release -- 12:51 10/16/24 [facility] Silvina Maguire R.N. dofetilide 250 mcg capsule -- 12:51 10/16/24 [facility] Silvina Maguire R.N. albuterol sulfate 2.5 mg/3 mL (0.083 %) solution for nebulization -- 12:51 10/16/24 [facility] Silvina Maguire R.N. pravastatin 40 mg tablet -- 12:51 10/16/24 [facility] Silvina Maguire R.N. metoprolol succinate ER 100 mg tablet,extended release 24 hr -- 12:51 10/16/24 [facility] Silvina Maguire R.N. spironolactone 25 mg tablet -- 12:51 10/16/24 [facility] Silvina Maguire R.N. trazodone 100 mg tablet -- 12:51 10/16/24 [facility] Silvina Maguire R.N. tizanidine 2 mg tablet -- 12:51 10/16/24 [facility] Silvina Maguire R.N. hydroxyzine pamoate 25 mg capsule -- 12:51 10/16/24 [facility] Silvina Maguire R.N. furosemide 20 mg tablet -- 12:51 10/16/24 [facility] Silvina Maguire R.N. duloxetine 20 mg capsule,delayed release -- 12:51 10/16/24 [facility] Silvina Maguire R.N. budesonide-formoterol HFA 80 mcg-4.5 mcg/actuation aerosol inhaler -- 12:51 10/16/24 EKTA Silvina Maguire R.N. True Metrix Glucose Test Strip -- 12:51 10/16/24 EDT Silvina Maguire R.N. Xarelto 20 mg tablet -- 12:51 10/16/24 EDT Silvina Maguire R.N. potassium chloride ER 20 mEq tablet,extended release -- 12:51 10/16/24 EDT Silvina Maguire R.N. TRUEplus Lancets 28 gauge -- 12:51 10/16/24 EDT Silvina Maguire R.N. Trulicity 1.5 mg/0.5 mL subcutaneous pen injector -- 12:51 10/16/24 EDT Silvina Maguire R.N. Allergies: Taokmzt-RII-EaQ Reductase Inhibitors -- 12:40 10/16/24 EKTAT Silvina [...] patient history of fall. -- 12:47 10/16/24 NAY Maguire R.N. Interventions 12:34 10/16/24. Advanced care [...] 10/16/24. E (more content not included)... Normal [facility] ED ORDER SHEET (CPOE ONLY)on 10-16-2024 ED ORDER SHEET (CPOE ONLY) Order Sheet Order Sheet [address] [address] [id number] 10/16/2024 Patient: CARLOS ALBERTO KELLEY Sex: Male : 1970 Age: 54y MEASUREMENTS: Wt: 140.2 kg, Ht/Wilson: 69.0 in, BMI: 45.63 ALLERGIES: Ulgtkjy-IRV-ZjQ Reductase Inhibitors MEDICATION/IV/DRIP/FL UID ORDERS Order Description Priority Entered Acknowledged Completed HYDROmorphone (Dilaudid) 12:56 10/16/2024 12:58 13:14 IVP0.5 mg (NOW x1, HIGH Jake Maxwell M.D. 10/16/2024 10/16/2024 ALERT MEDICATION) Destiney Blackman R.N. RRohan LAB ORDERS Order Description Priority Entered Acknowledged Collected Completed PT with INR Stat Stat 12:51 10/16/2024 12:58 10/16/2024 14:19 10/16/2024 Reymundo Carvajal Debra Schrock, R.N. RRohan CBC w Diff Stat Stat 14:00 10/16/2024 14:18 10/16/2024 14:19 10/16/2024 Reymundo Carvajal Debra Schrock, R.N. RRohan CMP Stat Stat 14:00 10/16/2024 14:18 10/16/2024 14:19 10/16/2024 Reymundo Carvajal Debra Schrock, R.N. RRohan 1 of 3 Order Sheet Lactate, Serum Stat Stat 14:00 10/16/2024 14:18 10/16/2024 14:19 10/16/2024 Reymundo Carvajal Debra Schrock, R.N. R.NEverett BNP Stat Stat 14:00 10/16/2024 14:10 10/16/2024 14:19 10/16/2024 Reymundo Carvajal Debra Schrock, R.N. R.Luc DIAGNOSTIC STUDY ORDERS Order Description Priority Entered Acknowledged Completed Foot R Complete Stat Stat 12:51 10/16/2024 12:58 14:19 Jake Maxwell M.D. 10/16/2024 10/16/2024 Desitney Blackman R.N. R.NEverett Reason for Study: Trauma/Injury Tib/Fib R 2V Stat Stat 12:51 10/16/2024 12:58 14:19 Jake Maxwell M.D. 10/16/2024 10/16/2024 Destiney Blackman R.N. R.NEverett Reason for Study: Trauma/Injury Ankle R Complete Stat Stat 12:51 10/16/2024 12:58 14:19 Jake Maxwell M.D. 10/16/2024 10/16/2024 Destiney Blackman R.N. R.N. Reason for Study: Trauma/Injury STAFF ORDERS Order Description Priority Entered Acknowledged Collected Completed IV Saline Lock 12:56 10/16/2024 12:58 10/16/2024 14:19 10/16/2024 Reymundo Carvajal Debra Schrock, R.N. R.N. [Electronically signed by Jake Maxwell M.D. (10/16/2024 15:16 EDT)] 2 of 3 Order Sheet [Electronically signed by Jake Maxwell M.D. (10/16/2024 15:18 EDT)] 3 of 3 Normal [facility] ED PHYSICIAN CLINICAL REPORT on 10-16-2024 ED PHYSICIAN CLINICAL REPORT Narrative Physician Clinical Narrative [address] [address] [id number] 10/16/2024 12:34:00 Patient: CARLOS ALBERTO KELLEY Sex: Male : 1970 Age: 54y Disposition: Transfer to [facility] Disposition Decision Time: 14:27 10/16/2024 Measurements Wt: [...] pen injector Xarelto 20 mg tablet Allergies: Liyjesx-KVO-FmG Reductase Inhibitors SOCIAL HISTORY Does not use [...] 148 x10/UL (more content not included)... Normal [facility] ED SUPER BILLon 10-16-2024 ED [facility] BILL [facility] [address] [place] [address] [phone] 10/16/2024 Patient: CARLOS ALBERTO KELLEY Sex: Male : 1970 Age: 54y Facility Professional Category Item Description Code Code Quantity Fee Total Nurse/E/M EMERGENCY 898028 1 $0.00 $0.00 DEPT VISIT HIGH SEVERITYFUNCJ (06043-41) Nurse/IV/IM/Infusions IVP initial (40202) 703270 1 $0.00 $0.00 Grand $0.00 Total Providers Jake Maxwell M.D. Jake Maxwell M.D. Chief Complaint Injury to right foot and right ankle. Principal Diagnosis Closed displaced, severely angulated right bimalleolar fracture. 1 of 2 [facility] ICD-10 Codes S82.841A: Displaced bimalleolar fracture of right lower leg, initial encounter for closed fracture 2 of 2 Normal [facility] ED VISIT SUMMARYon ED VISIT SUMMARY Visit Overview Visit Overview [address] [address] [id number] 10/16/2024 Patient: CARLOS ALBERTO KELLEY Sex: Male : 1970 Age: 54y 10/16/2024 07:42 PM EDT ED Arrival:12:34 10/16/2024 EDT Status: Recent Travel:no Language:eng Adv Directive:No Isolation Status: Ethnicity:N Fall Risk:risk Infectious Disease Exposure:no Measurements:5'9 / 175.3 Self-Harm Status:risk Sepsis Screen:negative cm 309.0 lb / 140.2 kg Chief Complaint:RIGHT LOWER EXTREMITY PAIN, RIGHT LOWER EXTREMITY REDNESS, and RIGHT LOWER EXTREMITY SWELLING ALLERGIES Wpuksgx-BCA-ThN Reductase Inhibitors HOME MEDICATIONS albuterol sulfate 2.5 [...] RIGHT BIMALLEOLAR FRACTURE 4 of 4 Normal [facility] ED VITALS FLOW SHEETon 10-16 ED VITALS FLOW SHEET Vitals Vital Sign Flow Sheet [place] [address] [place] [address] [phone] 10/16/2024 Patient: CARLOS ALBERTO KELLEY Sex: Male : 1970 Age: 54y [...] 98.9 F 10 2 of 2 Normal [facility] FOOT COMPLETE RTon FOOT COMPLETE RT [place] [address] Patient: CARLOS ALBERTO KELLEY Phone#: : 1970 Age: 54 Gender: M Pt. Type: ER Account: [id number] Location: 052 Ordering: JAKE MAXWELL Exam Date: 10/16/2024/13:00 Family Phys: Charge Code: 915141 Physician: [place] Order #: [id number] Dose#: PROCEDURE: X-RAY FOOT RT COMPLETE MIN [...] Bagley MD on 10/16/2024 at 14:23 Normal [facility] LABORATORYOrdered By: SYSTEM SYSTEM on 10-16-2024 Monocyte distribution width Auto (Bld) [Entitic vol] 19.45 1 Normal 0.00 - 20.00 AH Workflow [...] sepsis or risk of sepsis LABORATORYOrdered By: Suze Amaya on 10-16-2024 ABO and Rh group Nom (Bld) Blood group O Rh(D) positive Invalid Interpretation Code AH BB Auto SS Blood group antibody screen Ql Negative ABSC (10/16/24 10:08 PM) Normal AH BB Auto SS LACTATEon 10-16-2024 Lactate [Moles/Vol] 1.1 mmol/L Normal 0.4 - 2.0 [facility] Comment on above: Performed By: #### 2 [id number] #### [facility],[address] [place], [place] [id number] NT-proBNPon 10-16-2024 Natriuretic peptide B (Bld) [Mass/Vol] 291 pg/mL High 0 - 125 [facility] Comment on above: Performed By: #### 2 76001 #### [facility],[address] [place], [place] [id number] PROTHROMBIN TIME AND INRon 0 10-16-2024 INR Coag (PPP) [Relative time] 1.4 {INR} High 0.8 - 1.2 [facility] Comment on above: Result Comment: T HE [...] MECHANICAL HEART VALVES Performed By: #### 2 04476 ####[facility],[address] [place] [address] PROTHROMBIN TIME AND INR Normal [facility] Comment on above: Result Comment: PROT HROMBIN TIME AND INR Performed By: #### 2 55753 ####[facility],[address] [place] [address] PT-COUMADIN 15.9 sec High 9.3 - 14.1 [facility] Comment on above: Performed By: #### 2 24859 ####[facility],[address] [place] [address] TIBIA-FIBULA RTon 10-16-2024 TIBIA-FIBULA RT [place] [address] Patient: CARLOS ALBERTO KELLEY Phone#: : 1970 Age: 54 Gender: M Pt. Type: ER Account: [id number] Location: [facility] Ordering: JAKE MAXWELL Exam Date: 10/16/2024/13:23 Family Phys: Charge Code: 298417 Physician: [place] Order #: [id number] Dose#: PROCEDURE: X-RAY TIB FIB RT 2 [...] Bagley MD on 10/16/2024 at 14:12 Normal [facility] XR ANKLE MINIMUM 3 VIEWS LEF Ton [...] Sign Date: 10/16/2024 10:39:42 PM Ordering Provider: [facility] MAIN XR ANKLE MINIMUM 3 VIEWS RIG [...] Sign Date: 10/16/2024 9:20:54 PM Ordering Provider: [facility] MAIN XR ANKLE MINIMUM 3 VIEWS RIGHT [...] Sign Date: 10/16/2024 7:53:07 PM Ordering Provider: EMJOANNE GARCIA [facility] XR ANKLE MINIMUM 3 VIEWS RIGHT ORIGINAL [...] Sign Date: 10/16/2024 6:28:12 PM Ordering Provider: EMJOANNE GARCIA [facility] MAIN .Auto Diffon 10-04-2024 Basophil, Absolute 0.0 10 3/mcL Normal 0.0-0.3 [facility] Comment on above: Performed By: #### A ERIC, CBC, BMP, ADIFF, GFR #### [facility] [address] [place] [address] Basophils/100 WBC (Bld) 0.9 % Normal 0.0-2.5 [facility] Comment on above: Performed By: #### A ERIC, CBC, BMP, ADIFF, GFR #### [address] [address] Eosinophil, Absolute 0.1 10 3/mcL Normal 0.0-0.[address] [facility] Comment on above: Performed By: #### A ERIC, CBC, BMP, ADIFF, GFR #### [address] [address] Eosinophils/100 WBC (Bld) 1.9 % Normal 0.0-6.0 [facility] Comment on above: Performed By: #### A ERIC, CBC, BMP, ADIFF, GFR #### [address] [address] Lymphocyte, Absolute 1.0 10 3/mcL Normal 0.9-4.[address] [facility] Comment on above: Performed By: #### A ERIC, CBC, BMP, ADIFF, GFR #### [address] [address] Lymphocytes/100 WBC (Bld) 24.9 % Normal 20.0-40.0 [facility] Comment on above: Performed By: #### A ERIC, CBC, BMP, ADIFF, GFR #### [address] [address] Monocyte, Absolute 0.3 10 3/mcL Normal 0.1-1.4 [facility] Comment on above: Performed By: #### A ERIC, CBC, BMP, ADIFF, GFR #### [address] [address] Monocytes/100 WBC (Bld) 7.5 % Normal 2.0-13.0 [facility] Comment on above: Performed By: #### A ERIC, CBC, BMP, ADIFF, GFR #### [address] [address] Neutrophils/100 WBC (Bld) 64.8 % Normal 50.0-75.0 [facility] Comment on above: Performed By: #### A ERCI, CBC, BMP, ADIFF, GFR #### [address] [address] .GFRon 10-04-2024 Estimated Glomerular Filtration Rate 107 ml/min/1.73sqm Normal [facility] Comment on above: Result Comment: [...] eGFR results. Performed By: #### A ERIC, CBC, BMP, ADIFF, GFR #### [address] [address] .NEUABSon 10-04-2024 Neutrophil, Absolute 2.5 10 3/mcL Normal 2.3-8.[address] [facility] Comment on above: Performed By: #### A ERIC, CBC, BMP, ADIFF, GFR #### [address] [address] BMPon 10-04-2024 BUN/Creatinine Ratio 6.5 ratio Low 10.0-22.0 [facility] Comment on above: Performed By: #### A ERIC, CBC, BMP, ADIFF, GFR #### [address] [address] Calcium [Mass/Vol] 8.5 mg/dL Low 8.7-10.4 [facility] Comment on above: Performed By: #### A ERIC, CBC, BMP, ADIFF, GFR #### [address] [address] Chloride [Moles/Vol] 102 mmol/L Normal 98-110 [facility] Comment on above: Performed By: #### A ERIC, CBC, BMP, ADIFF, GFR #### [address] [address] CO2 [Moles/Vol] 31 mmol/L Normal 22-32 [facility] Comment on above: Performed By: #### A ERIC, CBC, BMP, ADIFF, GFR #### [address] [address] Creatinine [Mass/Vol] 0.77 mg/dL Normal 0.60-1.40 [facility] Comment on above: Result Comment: Test ing performed on [employer] analyzer using enzymatic creatinine methodology. Performed By: #### A ERIC, CBC, BMP, ADIFF, GFR #### [address] [address] Electrolyte Balance 6.0 mEq/L Normal 4.0-15.0 [facility] Comment on above: Performed By: #### A ERIC, CBC, BMP, ADIFF, GFR #### [address] [address] Glucose [Mass/Vol] 108 mg/dL Normal 70-110 [facility] Comment on above: Performed By: #### A ERIC, CBC, BMP, ADIFF, GFR #### [address] [address] Potassium [Moles/Vol] 3.5 mmol/L Normal 3.5-5.0 [facility] Comment on above: Performed By: #### A ERIC, CBC, BMP, ADIFF, GFR #### [address] [address] Sodium [Moles/Vol] 139 mmol/L Normal 136-145 [facility] Comment on above: Performed By: #### A ERIC, CBC, BMP, ADIFF, GFR #### [address] [address] Urea nitrogen [Mass/Vol] 5.0 mg/dL Low 8.0-22.0 [facility] Comment on above: Performed By: #### A ERIC, CBC, BMP, ADIFF, GFR #### [address] [address] CBCon 10-04-2024 Erythrocyte distribution width (RBC) [Ratio] 17.1 % High 11.5-15.5 [facility] Comment on above: Performed By: #### G FR, ABSGEL, ABOGEL, CMP #### [place] [address] Hematocrit (Bld) [Volume fraction] 42.5 % Normal 40.0-52.0 [facility] Comment on above: Performed By: #### TOMASA DIETRICH ABOGEL, CMP #### [address] [address] Hgb 13.8 G/dL Normal 13.0-17.5 [facility] Comment on above: Performed By: #### TOMASA DIETRICH ABOGEL, CMP #### [place] [address] MCH (RBC) [Entitic mass] 28.4 pg Normal 27.0-33.0 [facility] Comment on above: Performed By: #### TOMASA DIETRICH ABOGEL, CMP #### [place] [address] MCHC 32.6 G/dL Normal 32.0-36.0 [facility] Comment on above: Performed By: #### TOMASA DIETRICH ABOGEL, CMP #### [place] [address] MCV (RBC) [Entitic vol] 87.2 fL Normal 81.0-100.0 [facility] Comment on above: Performed By: #### TOMASA DIETRICH ABOGEL, CMP #### [place] [address] Platelet 120 10 3/mcL Low 150-450 [facility] Comment on above: Performed By: #### TOMASA DIETRICH ABOGEL, CMP #### [place] [address] Platelet mean volume (Bld) [Entitic vol] 7.4 fL Normal 6.4-10.5 [facility] Comment on above: Performed By: #### TOMASA DIETRICH ABOGEL, CMP #### [place] [address] RBC 4.87 10 6/mcL Normal 4.50-6.00 [facility] Comment on above: Performed By: #### TOMASA DIETRICH ABOGEL, CMP #### [facility] [address] [place] [address] WBC 3.8 10 3/mcL Low 4.5-10.8 [facility] Comment on above: Performed By: #### G TOMASA DEAN ABOGEL, CMP #### [facility] [address] [place] [address] LABORATORYOrdered By: Adenike Swain on 10-04-2024 Blood Glucose Testing Reason Routine (10/04/24 7:18 AM) [facility] Glucose [Mass/Vol] 100 mg/dL Normal 70 - 110 mg/dL [facility] LABORATORYOrdered By: SYSTEM SYSTEM on 10-04-2024 [...] above: Interpretive Data: T esting performed on [employer] analyzer using enzymatic creatinine methodology. Electrolyte Balance [...] 108 mg/dL Normal 70 - 110 mg/dL AH ADM SS Hematocrit (Bld) [Volume fraction] 42.5 [...] 120 103/mcL Low 150 - 450 10^3/mcL Workflow [...] 10-04-2024 Magnesium [Mass/Vol] 1.9 mg/dL Normal 1.6-2.4 [facility] Comment on above: Performed By: #### A ERIC, CBC, BMP, ADIFF, GFR #### [address] [address] .Auto Diffon 10-03-2024 Basophil, Absolute 0.0 10 3/mcL Normal 0.0-0.3 [facility] Comment on above: Performed By: #### A ERIC, CBC, BMP, ADIFF, GFR #### [address] [address] Basophils/100 WBC (Bld) 0.9 % Normal 0.0-2.5 [facility] Comment on above: Performed By: #### A ERIC, CBC, BMP, ADIFF, GFR #### [address] [address] Eosinophil, Absolute 0.1 10 3/mcL Normal 0.0-0.[address] [facility] Comment on above: Performed By: #### A ERIC, CBC, BMP, ADIFF, GFR #### [address] [address] Eosinophils/100 WBC (Bld) 2.0 % Normal 0.0-6.0 [facility] Comment on above: Performed By: #### A ERIC, CBC, BMP, ADIFF, GFR #### [address] [address] Lymphocyte, Absolute 0.9 10 3/mcL Normal 0.9-4.[address] [facility] Comment on above: Performed By: #### A ERIC, CBC, BMP, ADIFF, GFR #### [address] [address] Lymphocytes/100 WBC (Bld) 21.1 % Normal 20.0-40.0 [facility] Comment on above: Performed By: #### A ERIC, CBC, BMP, ADIFF, GFR #### [address] [address] Monocyte, Absolute 0.3 10 3/mcL Normal 0.1-1.4 [facility] Comment on above: Performed By: #### A ERIC, CBC, BMP, ADIFF, GFR #### [address] [address] Monocytes/100 WBC (Bld) 7.6 % Normal 2.0-13.0 [facility] Comment on above: Performed By: #### A ERIC, CBC, BMP, ADIFF, GFR #### [address] [address] Neutrophils/100 WBC (Bld) 68.4 % Normal 50.0-75.0 [facility] Comment on above: Performed By: #### A ERIC, CBC, BMP, ADIFF, GFR #### [address] [address] .GFRon 10-03-2024 Estimated Glomerular Filtration Rate 109 ml/min/1.73sqm Normal [facility] Comment on above: Result Comment: [...] eGFR results. Performed By: #### A ERIC, CBC, BMP, ADIFF, GFR #### [place] [address] .NEUABSon 10-03-2024 Neutrophil, Absolute 2.8 10 3/mcL Normal 2.3-8.[address] [facility] Comment on above: Performed By: #### A ERIC, CBC, BMP, ADIFF, GFR #### [place] [address] A1Con 10-03-2024 Glucose [Mass/Vol] 114 mg/dL Normal [facility] Comment on above: Result Comment: Zahida mated Average Glucose calculated by equation ((28.7xA1C)-46.7) Estimated average glucose (eAG) is a calculated value from Hemoglobin A1C and is internet sales representative of the average blood glucose level in the last 2-3 month period. Normal range: less than 114 mg/dL Performed By: #### A ERIC, CBC, BMP, ADIFF, GFR #### [place] [address] HbA1c (Bld) [Mass fraction] 5.6 % Normal 4.0-6.0 [facility] Comment on above: Performed By: #### A ERIC, CBC, BMP, ADIFF, GFR #### [place] [address] CBCon 10-03-2024 Erythrocyte distribution width (RBC) [Ratio] 16.6 % High 11.5-15.5 [facility] Comment on above: Performed By: #### A ERIC, CBC, BMP, ADIFF, GFR #### [place] [address] Hematocrit (Bld) [Volume fraction] 41.1 % Normal 40.0-52.0 [facility] Comment on above: Performed By: #### A ERIC, CBC, BMP, ADIFF, GFR #### [place] [address] Hgb 13.5 G/dL Normal 13.0-17.5 [facility] Comment on above: Performed By: #### A ERIC, CBC, BMP, ADIFF, GFR #### [place] [address] MCH (RBC) [Entitic mass] 28.7 pg Normal 27.0-33.0 [facility] Comment on above: Performed By: #### A ERIC, CBC, BMP, ADIFF, GFR #### [place] [address] MCHC 32.9 G/dL Normal 32.0-36.0 [facility] Comment on above: Performed By: #### A ERIC, CBC, BMP, ADIFF, GFR #### [place] [address] MCV (RBC) [Entitic vol] 87.2 fL Normal 81.0-100.0 [facility] Comment on above: Performed By: #### A ERIC, CBC, BMP, ADIFF, GFR #### [place] [address] Platelet 136 10 3/mcL Low 150-450 [facility] Comment on above: Performed By: #### A ERIC, CBC, BMP, ADIFF, GFR #### [place] [address] Platelet mean volume (Bld) [Entitic vol] 7.6 fL Normal 6.4-10.5 [facility] Comment on above: Performed By: #### A ERIC, CBC, BMP, ADIFF, GFR #### [place] [address] RBC 4.72 10 6/mcL Normal 4.50-6.00 [facility] Comment on above: Performed By: #### A ERIC, CBC, BMP, ADIFF, GFR #### [place] [address] WBC 4.2 10 3/mcL Low 4.5-10.8 [facility] Comment on above: Performed By: #### A ERIC, CBC, BMP, ADIFF, GFR #### [place] [address] CMPon 10-03-2024 Albumin Level 3.3 G/dL Normal 3.2-4.8 [facility] Comment on above: Performed By: #### A ERIC, CBC, BMP, ADIFF, GFR #### [place] [id number] Albumin/Globulin [Mass ratio] 1.0 {ratio} Normal 0.9-1.6 [facility] Comment on above: Performed By: #### A ERIC, CBC, BMP, ADIFF, GFR #### [address] [address] ALP [Catalytic activity/Vol] 56 U/L Normal 38-126 [facility] Comment on above: Performed By: #### A ERIC, CBC, BMP, ADIFF, GFR #### [place] [id number] ALT [Catalytic activity/Vol] 10 U/L Low 12-55 [facility] Comment on above: Performed By: #### A ERIC, CBC, BMP, ADIFF, GFR #### [place] [id number] AST [Catalytic activity/Vol] 16 U/L Normal 8-34 [facility] Comment on above: Performed By: #### A ERIC, CBC, BMP, ADIFF, GFR #### [place] [id number] Bili Total 0.60 mg/dL Normal 0.20-1.20 [facility] Comment on above: Result Comment: Use of this assay is not recommended for patients undergoing treatment with eltrombopag due to the potential for falsely elevated results. Performed By: #### A ERIC, CBC, BMP, ADIFF, GFR #### [place] [id number] BUN/Creatinine Ratio 9.6 ratio Low 10.0-22.0 [facility] Comment on above: Performed By: #### A ERIC, CBC, BMP, ADIFF, GFR #### [address] [address] Calcium [Mass/Vol] 8.4 mg/dL Low 8.7-10.4 [facility] Comment on above: Performed By: #### A ERIC, CBC, BMP, ADIFF, GFR #### [address] [address] Chloride [Moles/Vol] 105 mmol/L Normal 98-110 [facility] Comment on above: Performed By: #### A ERIC, CBC, BMP, ADIFF, GFR #### [address] [address] CO2 [Moles/Vol] 31 mmol/L Normal 22-32 [facility] Comment on above: Performed By: #### A ERIC, CBC, BMP, ADIFF, GFR #### [address] [address] Creatinine [Mass/Vol] 0.73 mg/dL Normal 0.60-1.40 [facility] Comment on above: Result Comment: Test ing performed on [employer] analyzer using enzymatic creatinine methodology. Performed By: #### A ERIC, CBC, BMP, ADIFF, GFR #### [address] [address] Electrolyte Balance 1.0 mEq/L Low 4.0-15.0 [facility] Comment on above: Performed By: #### A ERIC, CBC, BMP, ADIFF, GFR #### [address] [address] Globulin 3.2 G/dL Normal 2.5-4.2 [facility] Comment on above: Performed By: #### A ERIC, CBC, BMP, ADIFF, GFR #### [address] [address] Glucose [Mass/Vol] 109 mg/dL Normal 70-110 [facility] Comment on above: Performed By: #### A ERIC, CBC, BMP, ADIFF, GFR #### [address] [address] Potassium [Moles/Vol] 3.5 mmol/L Normal 3.5-5.0 [facility] Comment on above: Performed By: #### A ERIC, CBC, BMP, ADIFF, GFR #### [address] [address] Sodium [Moles/Vol] 137 mmol/L Normal 136-145 [facility] Comment on above: Performed By: #### A ERIC, CBC, BMP, ADIFF, GFR #### [address] [address] Total Protein 6.5 G/dL Normal 5.7-8.2 [facility] Comment on above: Performed By: #### A ERIC, CBC, BMP, ADIFF, GFR #### [address] [address] Urea nitrogen [Mass/Vol] 7.0 mg/dL Low 8.0-22.0 [facility] Comment on above: Performed By: #### A ERIC, CBC, BMP, ADIFF, GFR #### [address] [address] LABORATORYOrdered By: Jorge Wahl on 10-03-2024 Blood Glucose Testing Reason Routine (10/03/24 4:57 PM) [facility] Glucose [Mass/Vol] 81 mg/dL Normal 70 - 110 mg/dL [facility] LABORATORYOrdered By: Sophie Simental on 10-03-2024 Blood Glucose Testing Reason Routine (10/03/24 11:18 AM) [facility] Glucose [Mass/Vol] 99 mg/dL Normal 70 - 110 mg/dL [facility] LABORATORYOrdered By: SYSTEM SYSTEM on 10-03-2024 [...] 0.0 - 2.5 % AH Workflow SS Bilirubin [Mass/Vol] 0.60 mg/dL Normal [...] 0.73 mg/dL Normal 0.60 - 1.40 mg/dL AH ADM SS Comment on above: Interpretive Data: T esting performed on [employer] analyzer using enzymatic creatinine methodology. Electrolyte Balance 1.0 mEq/L Low 4.0 - 15 .0 mEq/L ADM SS Eosinophils (Bld) [#/Vol] 0.1 103/mcL Normal 0.0 - 0.7 10^3/mcL Workflow SS Eosinophils/100 WBC (Bld) 2.0 % Normal 0.0 - 6.0 % Workflow SS Erythrocyte distribution width (RBC) [Ratio] 16.6 % High 11.5 - 15.5 % AH Workflow SS Estimated Glomerular Filtration Rate 109 ml/min/1.73sqm Invalid Interpretation Code AH ADM SS [...] Glucose [Mass/Vol] 114 mg/dL Invalid Interpretation Code AH Auto Chem SS Comment on above: Interpretive Data: E stimated average glucose (eAG) is a calculated value from Hemoglobin A1C and is internet sales representative of the average blood glucose level in the last 2-3 month period. Normal range: less than 114 mg/dL HbA1c (Bld) [Mass fraction] 5.6 % Normal 4.0 - 6.0 % AH Auto Chem SS Hematocrit (Bld) [Volume fraction] [...] 10-03-2024 Cholesterol [Mass/Vol] 105 mg/dL Normal 50-[address] [facility] Comment on above: Result Comment: Chol esterol Reference Interval: Less than 200 Desirable 200-239 Borderline high risk 240 and above High risk Performed By: #### A ERIC, CBC, BMP, ADIFF, GFR #### [address] [address] Cholesterol in HDL [Mass/Vol] 17 mg/dL Low 40-59 [facility] Comment on above: Performed By: #### A ERIC, CBC, BMP, ADIFF, GFR #### [address] [address] Cholesterol in LDL [Mass/Vol] 58 mg/dL Normal 0-129 [facility] Comment on above: Performed By: #### A ERIC, CBC, BMP, ADIFF, GFR #### [address] [address] Triglyceride [Mass/Vol] 151 mg/dL High 3-149 A [facility] Comment on above: Performed By: #### A ERIC, CBC, BMP, ADIFF, GFR #### [address] [address] MGon 10-03-2024 Magnesium [Mass/Vol] 2.1 mg/dL Normal 1.6-2.4 [facility] Comment on above: Performed By: #### A ERIC, CBC, BMP, ADIFF, GFR #### [address] [address] .Auto Diffon 10-02-2024 Basophil, Absolute 0.0 10 3/mcL Normal 0.0-0.3 [facility] Comment on above: Performed By: #### A ERIC, CBC, BMP, ADIFF, GFR #### [address] [address] Basophils/100 WBC (Bld) 0.6 % Normal 0.0-2.5 [facility] Comment on above: Performed By: #### A ERIC, CBC, BMP, ADIFF, GFR #### [address] [address] Eosinophil, Absolute 0.1 10 3/mcL Normal 0.0-0.[address] [facility] Comment on above: Performed By: #### A ERIC, CBC, BMP, ADIFF, GFR #### [address] [address] Eosinophils/100 WBC (Bld) 1.0 % Normal 0.0-6.0 [facility] Comment on above: Performed By: #### A ERIC, CBC, BMP, ADIFF, GFR #### [address] [address] Lymphocyte, Absolute 1.2 10 3/mcL Normal 0.9-4.[address] [facility] Comment on above: Performed By: #### A ERIC, CBC, BMP, ADIFF, GFR #### [address] [address] Lymphocytes/100 WBC (Bld) 18.1 % Low 20.0-40.0 [facility] Comment on above: Performed By: #### A ERIC, CBC, BMP, ADIFF, GFR #### [address] [address] Monocyte, Absolute 0.7 10 3/mcL Normal 0.1-1.4 [facility] Comment on above: Performed By: #### A ERIC, CBC, BMP, ADIFF, GFR #### [address] [address] Monocytes/100 WBC (Bld) 10.0 % Normal 2.0-13.0 [facility] Comment on above: Performed By: #### A ERIC, CBC, BMP, ADIFF, GFR #### [address] [address] Neutrophils/100 WBC (Bld) 70.3 % Normal 50.0-75.0 [facility] Comment on above: Performed By: #### A ERIC, CBC, BMP, ADIFF, GFR #### [address] [address] Basophil, Absolute 0.1 10 3/mcL Normal 0.0-0.3 [facility] Comment on above: Performed By: #### A ERIC, MDW, BMP, MG, GFR, ADIFF, DIMER, CBC, PBNP, TROPHS #### [address] [address] Basophils/100 WBC (Bld) 0.8 % Normal 0.0-2.5 [facility] Comment on above: Performed By: #### A ERIC, MDW, BMP, MG, GFR, ADIFF, DIMER, CBC, PBNP, TROPHS #### [address] [address] Eosinophil, Absolute 0.1 10 3/mcL Normal 0.0-0.7 [facility] Comment on above: Performed By: #### A ERIC, MDW, BMP, MG, GFR, ADIFF, DIMER, CBC, PBNP, TROPHS #### [address] [address] Eosinophils/100 WBC (Bld) 1.2 % Normal 0.0-6.0 [facility] Comment on above: Performed By: #### A ELY REYES, BMP, MG, GFR, ADIFF, DIMER, CBC, PBNP, TROPHS #### [address] [address] Lymphocyte, Absolute 1.4 10 3/mcL Normal 0.9-4.3 [facility] Comment on above: Performed By: #### A MD ERICW, BMP, MG, GFR, ADIFF, DIMER, CBC, PBNP, TROPHS #### [address] [address] Lymphocytes/100 WBC (Bld) 13.3 % Low 20.0-40.0 [facility] Comment on above: Performed By: #### A ELY REYES, BMP, MG, GFR, ADIFF, DIMER, CBC, PBNP, TROPHS #### [address] [address] Monocyte, Absolute 0.8 10 3/mcL Normal 0.1-1.4 [facility] Comment on above: Performed By: #### A ELY REYES, BMP, MG, GFR, ADIFF, DIMER, CBC, PBNP, TROPHS #### [address] [address] Monocytes/100 WBC (Bld) 7.6 % Normal 2.0-13.0 [facility] Comment on above: Performed By: #### A ELY REYES, BMP, MG, GFR, ADIFF, DIMER, CBC, PBNP, TROPHS #### [address] [address] Neutrophils/100 WBC (Bld) 77.1 % High 50.0-75.0 [facility] Comment on above: Performed By: #### A MD ERICW, BMP, MG, GFR, ADIFF, DIMER, CBC, PBNP, TROPHS #### [address] [address] .GFRon 10-02-2024 Estimated Glomerular Filtration Rate 110 ml/min/1.73sqm Normal [facility] Comment on above: Result Comment: [...] eGFR results. Performed By: #### A ERIC, CBC, BMP, ADIFF, GFR #### [facility] [address] [place] [address] Estimated Glomerular Filtration Rate 104 ml/min/1.73sqm [facility] Comment on above: Result Comment: Stages of [...] eGFR results. Performed By: #### A ERIC, MDW, BMP, MG, GFR, ADIFF, DIMER, CBC, PBNP, TROPHS #### [place] [id number] [place], [place] [address] .MDWon 10-02-2024 Monocyte Distribution Width 19.51 Normal 0.00-20.00 [facility] Comment on above: Result Comment: For ED adult patients suspected of sepsis, MDW<=20.0 does not rule out sepsis or risk of sepsis Performed By: #### A ERIC, MDW, BMP, MG, GFR, ADIFF, DIMER, CBC, PBNP, TROPHS #### [address] [address] .NEUABSon 10-02-2024 Neutrophil, Absolute 4.7 10 3/mcL Normal 2.3-8.1 [facility] Comment on above: Performed By: #### A ERIC, CBC, BMP, ADIFF, GFR #### [address] [address] Neutrophil, Absolute 8.4 10 3/mcL High 2.3-8.1 [facility] Comment on above: Performed By: #### A ERIC, MDW, BMP, MG, GFR, ADIFF, DIMER, CBC, PBNP, TROPHS #### [place] [address] APTTon 10-02-2024 aPTT Coag (Bld) [Time] 36.5 s High 25.0-35.0 [facility] Comment on above: Result Comment: For Heparin anticoagulation therapy, the recommended therapeutic range is: 54-77 seconds (APTT Correlation with Anti-Xa therapeutic range of 0.3-0.7 units/ml). PLEASE REFERENCE THE PHARMACY PROTOCOL FOR DOSING. Performed By: #### G FR, ABSGEL, ABOGEL, CMP #### [place] [address] aPTT Coag (Bld) [Time] 29.3 s Normal 25.0-35.0 [facility] Comment on above: Result Comment: For Heparin anticoagulation therapy, the recommended therapeutic range is: 54-77 seconds (APTT Correlation with Anti-Xa therapeutic range of 0.3-0.7 units/ml). PLEASE REFERENCE THE PHARMACY PROTOCOL FOR DOSING. Performed By: #### G FR, BMP, CBC, MG, ADIFF, ANEU #### [place] [id number] BMPon 10-02-2024 BUN/Creatinine Ratio 14 ratio Normal 7-27 [facility] Comment on above: Performed By: #### A ERIC, MDW, BMP, MG, GFR, ADIFF, DIMER, CBC, PBNP, TROPHS #### [place] [address] Calcium [Mass/Vol] 8.9 mg/dL Normal 8.4-10.2 [facility] Comment on above: Performed By: #### A ELY REYES, BMP, MG, GFR, ADIFF, DIMER, CBC, PBNP, TROPHS #### [address] [address] Chloride [Moles/Vol] 101 mmol/L Normal 98-107 [facility] Comment on above: Performed By: #### A ELY REYES, BMP, MG, GFR, ADIFF, DIMER, CBC, PBNP, TROPHS #### [address] [address] CO2 [Moles/Vol] 31 mmol/L High 22-29 [facility] Comment on above: Performed By: #### A ELY REYES, BMP, MG, GFR, ADIFF, DIMER, CBC, PBNP, TROPHS #### [address] [address] Creatinine [Mass/Vol] 0.85 mg/dL Normal 0.67-1.17 [facility] Comment on above: Performed By: #### A ELY REYES, JULIÁN, MG, GFR, ADIFF, DIMER, CBC, PBNP, TROPHS #### [address] [address] Electrolyte Balance 6.0 mEq/L Normal 4.0-15.0 [facility] Comment on above: Performed By: #### A ELY REYES, JULIÁN, MG, GFR, ADIFF, DIMER, CBC, PBNP, TROPHS #### [address] [address] Glucose [Mass/Vol] 157 mg/dL High 70-105 [facility] Comment on above: Performed By: #### A ELY REYES, BMP, MG, GFR, ADIFF, DIMER, CBC, PBNP, TROPHS #### [address] [address] Potassium [Moles/Vol] 3.1 mmol/L Low 3.5-5.1 [facility] Comment on above: Performed By: #### A ELY REYES, BMP, MG, GFR, ADIFF, DIMER, CBC, PBNP, TROPHS #### [address] [address] Sodium [Moles/Vol] 138 mmol/L Normal 136-145 [facility] Comment on above: Performed By: #### A MD ERICW, BMP, MG, GFR, ADIFF, DIMER, CBC, PBNP, TROPHS #### [address] [address] Urea nitrogen [Mass/Vol] 12 mg/dL Normal 7-18 [facility] Comment on above: Performed By: #### A ELY REYES, BMP, MG, GFR, ADIFF, DIMER, CBC, PBNP, TROPHS #### [address] [address] CAIONon 10-02-2024 Calcium Ionized 1.09 mmol/L Low 1.12-1.32 [facility] Comment on above: Performed By: #### A ERIC, CBC, BMP, ADIFF, GFR #### [address] [address] CBCon 10-02-2024 Erythrocyte distribution width (RBC) [Ratio] 16.6 % High 11.5-15.5 [facility] Comment on above: Performed By: #### A ERIC, CBC, BMP, ADIFF, GFR #### [address] [address] Hematocrit (Bld) [Volume fraction] 47.4 % Normal 40.0-52.0 [facility] Comment on above: Performed By: #### A ERIC, CBC, BMP, ADIFF, GFR #### [address] [address] Hgb 15.6 G/dL Normal 13.0-17.5 [facility] Comment on above: Performed By: #### A ERIC, CBC, BMP, ADIFF, GFR #### [address] [address] MCH (RBC) [Entitic mass] 28.7 pg Normal 27.0-33.0 [facility] Comment on above: Performed By: #### A ERIC, CBC, BMP, ADIFF, GFR #### [place] [address] MCHC 32.9 G/dL Normal 32.0-36.0 [facility] Comment on above: Performed By: #### A ERIC, CBC, BMP, ADIFF, GFR #### [place] [address] MCV (RBC) [Entitic vol] 87.2 fL Normal 81.0-100.0 [facility] Comment on above: Performed By: #### A ERIC, CBC, BMP, ADIFF, GFR #### [place] [address] Platelet 139 10 3/mcL Low 150-450 [facility] Comment on above: Performed By: #### A ERIC, CBC, BMP, ADIFF, GFR #### [place] [address] Platelet mean volume (Bld) [Entitic vol] 7.7 fL Normal 6.4-10.5 [facility] Comment on above: Performed By: #### A ERIC, CBC, BMP, ADIFF, GFR #### [place] [id number] RBC 5.44 10 6/mcL Normal 4.50-6.00 [facility] Comment on above: Performed By: #### A ERIC, CBC, BMP, ADIFF, GFR #### [place] [id number] WBC 6.6 10 3/mcL Normal 4.5-10.8 [facility] Comment on above: Performed By: #### A ERIC, CBC, BMP, ADIFF, GFR #### [place] [address] Erythrocyte distribution width (RBC) [Ratio] 16.6 % High 11.5-15.5 [facility] Comment on above: Performed By: #### A ERIC, MDW, BMP, MG, GFR, ADIFF, DIMER, CBC, PBNP, TROPHS #### [address] [address] Hematocrit (Bld) [Volume fraction] 51.4 % Normal 40.0-52.0 [facility] Comment on above: Performed By: #### A ELY REYES, BMP, MG, GFR, ADIFF, DIMER, CBC, PBNP, TROPHS #### [place] [address] Hgb 17.1 G/dL Normal 13.0-17.5 [facility] Comment on above: Performed By: #### A ELY REYES, BMP, MG, GFR, ADIFF, DIMER, CBC, PBNP, TROPHS #### [place] [address] MCH (RBC) [Entitic mass] 28.9 pg Normal 27.0-33.0 [facility] Comment on above: Performed By: #### A ELY REYES, JULIÁN, MG, GFR, ADIFF, DIMER, CBC, PBNP, TROPHS #### [place] [address] MCHC 33.3 G/dL Normal 32.0-36.0 [facility] Comment on above: Performed By: #### A ELY REYES, BMP, MG, GFR, ADIFF, DIMER, CBC, PBNP, TROPHS #### [place] [address] MCV (RBC) [Entitic vol] 86.7 fL Normal 81.0-100.0 [facility] Comment on above: Performed By: #### A ELY REYES, BMP, MG, GFR, ADIFF, DIMER, CBC, PBNP, TROPHS #### [place] [address] Platelet 199 10 3/mcL Normal 150-450 [facility] Comment on above: Performed By: #### A ELY REYES, BMP, MG, GFR, ADIFF, DIMER, CBC, PBNP, TROPHS #### [address] [address] Platelet mean volume (Bld) [Entitic vol] 7.3 fL Normal 6.4-10.5 [facility] Comment on above: Performed By: #### A ELY REYES, BMP, MG, GFR, ADIFF, DIMER, CBC, PBNP, TROPHS #### [address] [address] RBC 5.93 10 6/mcL Normal 4.50-6.00 [facility] Comment on above: Performed By: #### A ELY REYES, BMP, MG, GFR, ADIFF, DIMER, CBC, PBNP, TROPHS #### [address] [address] WBC 10.9 10 3/mcL High 4.5-10.8 [facility] Comment on above: Performed By: #### A ELY REYES, JULINÁ, MG, GFR, ADIFF, DIMER, CBC, PBNP, TROPHS #### [address] [address] CMPon 10-02-2024 Albumin Level 3.2 G/dL Normal 3.2-4.8 [facility] Comment on above: Performed By: #### A ERIC, CBC, BMP, ADIFF, GFR #### [address] [address] Albumin/Globulin [Mass ratio] 0.9 {ratio} Normal 0.9-1.6 [facility] Comment on above: Performed By: #### A ERIC, CBC, BMP, ADIFF, GFR #### [address] [address] ALP [Catalytic activity/Vol] 60 U/L Normal 38-126 [facility] Comment on above: Performed By: #### A ERIC, CBC, BMP, ADIFF, GFR #### [address] [address] ALT/SGPT <8 Low 12-55 [facility] Comment on above: Performed By: #### A ERIC, CBC, BMP, ADIFF, GFR #### [address] [address] AST [Catalytic activity/Vol] 15 U/L Normal 8-34 [facility] Comment on above: Performed By: #### A ERIC, CBC, BMP, ADIFF, GFR #### [place] [id number] Bili Total 0.60 mg/dL Normal 0.20-1.20 [facility] Comment on above: Result Comment: Use of this assay is not recommended for patients undergoing treatment with eltrombopag due to the potential for falsely elevated results. Performed By: #### A ERIC, CBC, BMP, ADIFF, GFR #### [place] [id number] BUN/Creatinine Ratio 15.5 ratio Normal 10.0-22.0 [facility] Comment on above: Performed By: #### A ERIC, CBC, BMP, ADIFF, GFR #### [place] [id number] Calcium [Mass/Vol] 8.4 mg/dL Low 8.7-10.4 [facility] Comment on above: Performed By: #### A ERIC, CBC, BMP, ADIFF, GFR #### [place] [id number] Chloride [Moles/Vol] 102 mmol/L Normal 98-110 [facility] Comment on above: Performed By: #### A ERIC, CBC, BMP, ADIFF, GFR #### [place] [id number] CO2 [Moles/Vol] 25 mmol/L Normal 22-32 [facility] Comment on above: Performed By: #### A ERIC, CBC, BMP, ADIFF, GFR #### [place] [id number] Creatinine [Mass/Vol] 0.71 mg/dL Normal 0.60-1.40 [facility] Comment on above: Result Comment: Test ing performed on [employer] analyzer using enzymatic creatinine methodology. Performed By: #### A ERIC, CBC, BMP, ADIFF, GFR #### [place] [id number] Electrolyte Balance 12.0 mEq/L Normal 4.0-15.0 [facility] Comment on above: Performed By: #### A ERIC, CBC, BMP, ADIFF, GFR #### [address] [address] Globulin 3.5 G/dL Normal 2.5-4.2 [facility] Comment on above: Performed By: #### A ERIC, CBC, BMP, ADIFF, GFR #### [address] [address] Glucose [Mass/Vol] 109 mg/dL Normal 70-110 [facility] Comment on above: Performed By: #### A ERIC, CBC, BMP, ADIFF, GFR #### [address] [address] Potassium [Moles/Vol] 3.5 mmol/L Normal 3.5-5.0 [facility] Comment on above: Performed By: #### A ERIC, CBC, BMP, ADIFF, GFR #### [address] [address] Sodium [Moles/Vol] 139 mmol/L Normal 136-145 [facility] Comment on above: Performed By: #### A ERIC, CBC, BMP, ADIFF, GFR #### [address] [address] Total Protein 6.7 G/dL Normal 5.7-8.2 [facility] Comment on above: Performed By: #### A ERIC, CBC, BMP, ADIFF, GFR #### [address] [address] Urea nitrogen [Mass/Vol] 11.0 mg/dL Normal 8.0-22.0 [facility] Comment on above: Performed By: #### A ERIC, CBC, BMP, ADIFF, GFR #### [address] [address] LABORATORYOrdered By: SYSTEM SYSTEM on 10-02-2024 aPTT Coag (Bld) [Time] 36.5 s High 25.0 - 35.0 seconds AH [...] above: Interpretive Data: T esting performed on [employer] analyzer using enzymatic creatinine methodology. Electrolyte Balance [...] Filtration Rate 110 ml/min/1.73sqm Invalid Interpretation Code [facility] Comment on above: Interpretive Data: Stages [...] 3.5 G/dL Normal 2.5 - 4.2 G/dL [facility] SS Glucose [Mass/Vol] 109 mg/dL Normal 70 - 110 mg/dL [facility] SS Hematocrit (Bld) [Volume fraction] 47.4 % Normal 40.0 - 52.0 % Workflow SS Hemoglobin (Bld) [Mass/Vol] 15.6 G/dL Normal 13.0 - 17.5 G/dL Workflow SS Lymphocytes (Bld) [#/Vol] 1.2 103/mcL Normal 0.9 - 4.3 10^3/mcL Workflow SS Lymphocytes/100 WBC (Bld) 18.1 % Low 20.0 - 40.0 % Workflow SS Magnesium [Mass/Vol] 1.8 mg/dL Normal 1.6 - 2 .4 mg/dL [facility] SS MCH (RBC) [Entitic mass] 28.7 pg Normal 27.0 - 33.0 pg Workflow SS MCHC 32.9 G/dL Normal 32.0 - 36.0 G/dL [facility] SS MCV (RBC) [Entitic vol] 87.2 fL [...] Code [employer] Comment on above: Interpretive Data: T he [employer] (CHEST, 1992, 102:312S-25S) [...] ng/L Male: 0-54 ng/L Testing performed on [employer] analyzer using direct chemiluminescent technology. TSH Qn [...] ng/L Male: 0-76 ng/L Testing performed on [employer] using a homogeneous sandwich chemiluminescent immunoassay based on [employer] technology. Basophils (Bld) [#/Vol] 0.1 103/mcL Normal [...] Comment on above: Interpretive Data: Baljinder linn [employer] (CHEST, 1991, 102:312S-25S) [...] ng/L Male: 0-76 ng/L Testing performed on [employer] using a homogeneous sandwich chemiluminescent immunoassay based on [employer] technology. Urea nitrogen [Mass/Vol] 12 mg/dL Normal [...] 10-02-2024 Magnesium [Mass/Vol] 1.8 mg/dL Normal 1.6-2.4 [facility] Comment on above: Performed By: #### A ERIC, CBC, BMP, ADIFF, GFR #### [address] [address] Magnesium [Mass/Vol] 1.7 mg/dL Low 1.8-2.4 [facility] Comment on above: Performed By: #### A ELY REYES, BMP, MG, GFR, ADIFF, DIMER, CBC, PBNP, TROPHS #### [address] [address] PBNPon 10-02-2024 Natriuretic peptide B (Bld) [Mass/Vol] 2223 pg/mL High 0-900 [facility] Comment on above: Performed By: #### A ERIC, CBC, BMP, ADIFF, GFR #### [address] [address] Natriuretic peptide B (Bld) [Mass/Vol] 973 pg/mL High 0-125 [facility] Comment on above: Result Comment: NT-p roBNP results of less than 300 pg/mL effectively rules out acute congestive heart failure with 99% negative predictive value. Performed By: #### A MD ERICW, BMP, MG, GFR, ADIFF, DIMER, CBC, PBNP, TROPHS #### [address] [address] PHOSon 10-02-2024 Phosphate [Mass/Vol] 2.2 mg/dL Low 2.4-5.1 [facility] Comment on above: Result Comment: No te - New Reference Range in effect 19 Performed By: #### A ERIC, CBC, BMP, ADIFF, GFR #### [address] [address] PROon 10-02-2024 INR Coag (PPP) [Relative time] 1.2 {INR} Normal [facility] Comment on above: Result Comment: [employer] (CHEST, 1991, [id number]) recommended therapeutic range for oral anticoagulant therapy is: LOW RISK: Prophylaxis of venous thrombosis INR: 2.0-3.0 Treatment of pulmonary embolism 2.0-3.0 Prevention of systemic embolism 2.0-3.0 HIGH RISK: Mechanical prosthetic valves 2.5-3.5 Performed By: #### G FR, BMP, CBC, MG, ADIFF, ANEU #### [address] [id number] PT Coag (PPP) [Time] 13.4 s Normal 9.0-14.4 [facility] Comment on above: Result Comment: Effe ctive 12/11/07, Protime results may be affected by some antibiotics (i.e. Ciprofloxacin, Azithromycin, Bactrim) which may potentiate the action of oral anticoagulants, with further increases in Protime/INR. Performed By: #### G FR, BMP, CBC, MG, ADIFF, ANEU #### [address] [id number] PT Coag (PPP) [Time] 13.5 s Normal 9.0-14.4 [facility] Comment on above: Performed By: #### A ERIC, MDW, BMP, MG, GFR, ADIFF, DIMER, CBC, PBNP, TROPHS #### [facility] [address] [place], [place] [address] PT International Ratio 1.2 Normal [facility] Comment on above: Result Comment: [employer] [employer] (CHEST, 1991, [id number]) recommended therapeutic range for oral anticoagulant therapy is: LOW RISK: Prophylaxis of venous thrombosis INR: 2.0-3.0 Treatment of pulmonary embolism 2.0-3.0 Prevention of systemic embolism 2.0-3.0 HIGH RISK: Mechanical prosthetic valves 2.5-3.5 Performed By: #### A ELY REYES, BMP, MG, GFR, ADIFF, DIMER, CBC, PBNP, TROPHS #### [address] [address] TROPHSon 10-02-2024 High Sensitivity Troponin I 6 ng/L Normal 0-54 [facility] Comment on above: Result Comment: High Sensitive Troponin I Reference Ranges: Female: 0-34 ng/L Male: 0-54 ng/L Testing performed on [employer] analyzer using direct chemiluminescent technology. Performed By: #### A ERIC, CBC, BMP, ADIFF, GFR #### [address] [address] High Sensitivity Troponin I 9 ng/L Normal 0-76 [facility] Comment on above: Result Comment: High Sensitive Troponin I Reference Ranges: Female: 0-51 ng/L Male: 0-76 ng/L Testing performed on [employer] using a homogeneous sandwich chemiluminescent immunoassay based on [employer] technology. Performed By: #### A LEY REYES, JULIÁN, MG, GFR, ADIFF, DIMER, CBC, PBNP, TROPHS #### [place] [address] High Sensitivity Troponin I 9 ng/L Normal 0-76 [facility] Comment on above: Result Comment: High Sensitive Troponin I Reference Ranges: Female: 0-51 ng/L Male: 0-76 ng/L Testing performed on [employer] using a homogeneous sandwich chemiluminescent immunoassay based on [employer] technology. Performed By: #### A ELY REYES, BMP, MG, GFR, ADIFF, DIMER, CBC, PBNP, TROPHS #### [address] [address] TSHon 10-02-2024 TSH 1.923 mIU/mL Normal 0.550-4.780 [facility] Comment on above: Performed By: #### A ERIC, CBC, BMP, ADIFF, GFR #### [address] [place] [address] XR CHEST 1 VIEWon 10-02-2024 XR CHEST [...] 10/02/2024 2:02:33 AM Ordering Provider: DELORES MURO [facility] XR ANKLE MINIMUM 3 VIEWS LEF Ton [...] Report By: Trinidad Evans Electronically signed By Trindiad Evans Dictated Date: 08/29/2024 3:50:25 PM Prelim Date: 08/29/2024 3:52:38 PM Sign Date: 08/29/2024 3:52:38 PM Ordering Provider: EDER FARFAN [facility] XR CHEST 2 VIEWSon XR CHEST 2 [...] Sign Date: 08/29/2024 4:51:29 PM Ordering Provider: GIRMA CORREA [facility] .Auto Diffon 08-13-2024 Basophil, Absolute 0.0 10 3/mcL Normal 0.0-0.2 [facility] Comment on above: Performed By: #### A ELY REYES, BMP, MG, GFR, ADIFF, DIMER, CBC, PBNP, TROPHS #### [address] [address] Basophils/100 WBC (Bld) 0.7 % Normal 0.0-2.5 [facility] Comment on above: Performed By: #### A MD ERICW, BMP, MG, GFR, ADIFF, DIMER, CBC, PBNP, TROPHS #### [address] [address] Eosinophil, Absolute 0.1 10 3/mcL Normal 0.0-0.7 [facility] Comment on above: Performed By: #### A ELY REYES, BMP, MG, GFR, ADIFF, DIMER, CBC, PBNP, TROPHS #### [address] [address] Eosinophils/100 WBC (Bld) 1.3 % Normal 0.0-7.0 [facility] Comment on above: Performed By: #### A ELY REYES, BMP, MG, GFR, ADIFF, DIMER, CBC, PBNP, TROPHS #### [address] [address] Lymphocyte, Absolute 0.8 10 3/mcL Low 0.9-4.3 [facility] Comment on above: Performed By: #### A ELY REYES, BMP, MG, GFR, ADIFF, DIMER, CBC, PBNP, TROPHS #### [address] [address] Lymphocytes/100 WBC (Bld) 19.9 % Low 20.0-40.0 [facility] Comment on above: Performed By: #### A ELY REYES, BMP, MG, GFR, ADIFF, DIMER, CBC, PBNP, TROPHS #### [address] [address] Monocyte, Absolute 0.3 10 3/mcL Normal 0.1-1.4 [facility] Comment on above: Performed By: #### A ELY REYES, BMP, MG, GFR, ADIFF, DIMER, CBC, PBNP, TROPHS #### [address] [address] Monocytes/100 WBC (Bld) 6.9 % Normal 2.0-13.0 [facility] Comment on above: Performed By: #### A ELY REYES, BMP, MG, GFR, ADIFF, DIMER, CBC, PBNP, TROPHS #### [address] [address] Neutrophils/100 WBC (Bld) 71.2 % Normal 50.0-75.0 [facility] Comment on above: Performed By: #### A ELY REYES, BMP, MG, GFR, ADIFF, DIMER, CBC, PBNP, TROPHS #### [address] [address] .GFRon 08-13-2024 Estimated Glomerular Filtration Rate 107 ml/min/1.73sqm Normal [facility] Comment on above: Result Comment: Stages of [...] the eGFR results. Performed By: #### A ELY REYES, BMP, MG, GFR, ADIFF, DIMER, CBC, PBNP, TROPHS #### [address] [address] .MDWon 08-13-2024 Monocyte Distribution Width 19.39 Normal 0.00-20.00 [facility] Comment on above: Result Comment: For ED adult patients suspected of sepsis, MDW<=20.0 does not rule out sepsis or risk of sepsis Performed By: #### A ELY REYES, BMP, MG, GFR, ADIFF, DIMER, CBC, PBNP, TROPHS #### [address] [address] .NEUABSon 08-13-2024 Neutrophil, Absolute 2.9 10 3/mcL Normal 2.3-8.1 [facility] Comment on above: Performed By: #### A ELY REYES, BMP, MG, GFR, ADIFF, DIMER, CBC, PBNP, TROPHS #### [address] [address] CBCon 03-18-2025 Erythrocyte distribution width (RBC) [Ratio] 17.1 % High 11.5-15.5 [facility] Comment on above: Performed By: #### A ELY REYES, BMP, MG, GFR, ADIFF, DIMER, CBC, PBNP, TROPHS #### [address] [address] Hematocrit (Bld) [Volume fraction] 42.8 % Normal 40.0-52.0 [facility] Comment on above: Performed By: #### A ELY REYES, BMP, MG, GFR, ADIFF, DIMER, CBC, PBNP, TROPHS #### [address] [address] Hgb 14.0 G/dL Normal 13.0-17.5 [facility] Comment on above: Performed By: #### A ELY REYES, JULIÁN, MG, GFR, ADIFF, DIMER, CBC, PBNP, TROPHS #### [address] [address] MCH (RBC) [Entitic mass] 27.9 pg Normal 27.0-33.0 [facility] Comment on above: Performed By: #### A ELY REYES, JULIÁN, MG, GFR, ADIFF, DIMER, CBC, PBNP, TROPHS #### [address] [address] MCHC 32.8 G/dL Normal 32.0-36.0 [facility] Comment on above: Performed By: #### A ELY REYES, BMP, MG, GFR, ADIFF, DIMER, CBC, PBNP, TROPHS #### [address] [address] MCV (RBC) [Entitic vol] 84.9 fL Normal 81.0-100.0 [facility] Comment on above: Performed By: #### A ELY REYES, BMP, MG, GFR, ADIFF, DIMER, CBC, PBNP, TROPHS #### [address] [address] Platelet 137 10 3/mcL Low 150-450 [facility] Comment on above: Performed By: #### A ELY REYES, BMP, MG, GFR, ADIFF, DIMER, CBC, PBNP, TROPHS #### [address] [address] Platelet mean volume (Bld) [Entitic vol] 6.7 fL Normal 6.4-10.5 [facility] Comment on above: Performed By: #### A ELY REYES, BMP, MG, GFR, ADIFF, DIMER, CBC, PBNP, TROPHS #### [address] [address] RBC 5.04 10 6/mcL Normal 4.50-6.00 [facility] Comment on above: Performed By: #### A ELY REYES, BMP, MG, GFR, ADIFF, DIMER, CBC, PBNP, TROPHS #### [address] [address] WBC 4.1 10 3/mcL Low 4.5-10.8 [facility] Comment on above: Performed By: #### A ELY REYES, JULIÁN, MG, GFR, ADIFF, DIMER, CBC, PBNP, TROPHS #### [address] [address] CMPon 08-13-2024 Albumin Level 3.3 G/dL Low 3.5-5.0 [facility] Comment on above: Performed By: #### A ELY REYES, JULIÁN, MG, GFR, ADIFF, DIMER, CBC, PBNP, TROPHS #### [address] [address] Albumin/Globulin [Mass ratio] 0.8 {ratio} Low 1.1-2.5 [facility] Comment on above: Performed By: #### A ELY REYES, JULIÁN, MG, GFR, ADIFF, DIMER, CBC, PBNP, TROPHS #### [address] [address] ALP [Catalytic activity/Vol] 76 U/L Normal 40-135 [facility] Comment on above: Performed By: #### A ERIC, MDW, BMP, MG, GFR, ADIFF, DIMER, CBC, PBNP, TROPHS #### [address] [address] ALT [Catalytic activity/Vol] 10 U/L Low 16-63 [facility] Comment on above: Performed By: #### A ELY REYES, BMP, MG, GFR, ADIFF, DIMER, CBC, PBNP, TROPHS #### [address] [address] AST [Catalytic activity/Vol] 14 U/L Normal 10-40 [facility] Comment on above: Performed By: #### A ELY REYES, BMP, MG, GFR, ADIFF, DIMER, CBC, PBNP, TROPHS #### [place] [address] Bili Total 0.4 mg/dL Normal 0.2-1.0 [facility] Comment on above: Result Comment: Use of this assay is not recommended for patients undergoing treatment with eltrombopag due to the potential for falsely elevated results. Performed By: #### A ELY REYES, BMP, MG, GFR, ADIFF, DIMER, CBC, PBNP, TROPHS #### [place] [address] BUN/Creatinine Ratio 13 ratio Normal 7-27 [facility] Comment on above: Performed By: #### A ELY REYES, BMP, MG, GFR, ADIFF, DIMER, CBC, PBNP, TROPHS #### [address] [address] Calcium [Mass/Vol] 8.6 mg/dL Normal 8.4-10.2 [facility] Comment on above: Performed By: #### A ELY REYES, BMP, MG, GFR, ADIFF, DIMER, CBC, PBNP, TROPHS #### [address] [address] Chloride [Moles/Vol] 101 mmol/L Normal 98-107 [facility] Comment on above: Performed By: #### A ELY REYES, BMP, MG, GFR, ADIFF, DIMER, CBC, PBNP, TROPHS #### [address] [address] CO2 [Moles/Vol] 35 mmol/L High 22-29 [facility] Comment on above: Performed By: #### A MD ERICW, BMP, MG, GFR, ADIFF, DIMER, CBC, PBNP, TROPHS #### [place] [id number] Creatinine [Mass/Vol] 0.78 mg/dL Normal 0.70-1.30 [facility] Comment on above: Result Comment: Test ing performed on [employer] Dimension EXL analyzer using a modified kinetic Ciera technique. Performed By: #### A ELY REYES, BMP, MG, GFR, ADIFF, DIMER, CBC, PBNP, TROPHS #### [place] [address] Electrolyte Balance 2.0 mEq/L Low 4.0-15.0 [facility] Comment on above: Performed By: #### A ELY REYES, BMP, MG, GFR, ADIFF, DIMER, CBC, PBNP, TROPHS #### [address] [address] Globulin 3.9 G/dL High 1.5-3.8 [facility] Comment on above: Performed By: #### A ELY REYES, BMP, MG, GFR, ADIFF, DIMER, CBC, PBNP, TROPHS #### [address] [address] Glucose [Mass/Vol] 105 mg/dL Normal 70-105 [facility] Comment on above: Performed By: #### A ELY REYES, BMP, MG, GFR, ADIFF, DIMER, CBC, PBNP, TROPHS #### [address] [address] Potassium [Moles/Vol] 3.8 mmol/L Normal 3.5-5.1 [facility] Comment on above: Performed By: #### A ELY REYES, BMP, MG, GFR, ADIFF, DIMER, CBC, PBNP, TROPHS #### [address] [address] Sodium [Moles/Vol] 138 mmol/L Normal 136-145 [facility] Comment on above: Performed By: #### A ELY REYES, BMP, MG, GFR, ADIFF, DIMER, CBC, PBNP, TROPHS #### [place] [address] Total Protein 7.2 G/dL Normal 6.4-8.2 [facility] Comment on above: Performed By: #### A ELY REYSE, JULIÁN, MG, GFR, ADIFF, DIMER, CBC, PBNP, TROPHS #### [place] [address] Urea nitrogen [Mass/Vol] 10 mg/dL Normal 7-18 [facility] Comment on above: Performed By: #### A ELY REYES, BMP, MG, GFR, ADIFF, DIMER, CBC, PBNP, TROPHS #### [place] [address] CVFLURVon 08-13-2024 FLU A PCR Negative Normal Negative [facility] Comment on above: Performed By: #### C VFLURV #### [place] [address] FLU B PCR Negative Normal Negative [facility] Comment on above: Performed By: #### C VFLURV #### [place] [address] RSV PCR Negative Normal Negative [facility] Comment on above: Performed By: #### C VFLURV #### [place] [address] SARS-CoV-2 (COVID-19) RNA ROSE+probe Ql (Unsp spec) Negative Normal Negative [facility] Comment on above: Result Comment: Resu lts [...] positive results. Performed By: #### C VFLURV #### [address] [address] PBNPon 08-13-2024 Natriuretic peptide B (Bld) [Mass/Vol] 456 pg/mL High 0-125 [facility] Comment on above: Result Comment: NT-p roBNP results of less than 300 pg/mL effectively rules out acute congestive heart failure with 99% negative predictive value. Performed By: #### A ELY REYES, BMP, MG, GFR, ADIFF, DIMER, CBC, PBNP, TROPHS #### [address] [address] [facility] High Sensitivity Troponin I 8 ng/L Normal 0-76 [facility] Comment on above: Result Comment: High Sensitive Troponin I Reference Ranges: Female: 0-51 ng/L Male: 0-76 ng/L Testing performed on [employer] using a homogeneous sandwich chemiluminescent immunoassay based on [employer] technology. Performed By: #### A ELY REYES, BMP, MG, GFR, ADIFF, DIMER, CBC, PBNP, TROPHS #### [address] [address] XR CHEST 1 VIEWon 08-13-2024 XR CHEST [...] 08/13/2024 11:55:14 AM Ordering Provider: WILNER JOE [facility] .GFRon 05-14-2024 GFR Non- 90 ml/min/1.73sqm [facility] Comment on above: Result Comment: GFR Population [...] mL/min/1.73 square meters Performed By: #### A ERIC, MDW, BMP, MG, GFR, ADIFF, DIMER, CBC, PBNP, TROPHS #### [address] [address] GFR 109 ml/min/1.73sqm [facility] Comment on above: Result Comment: GFR Population [...] mL/min/1.73 square meters Performed By: #### A ELY REYES, BMP, MG, GFR, ADIFF, DIMER, CBC, PBNP, TROPHS #### [address] [address] A1Con 05-14-2024 Glucose [Mass/Vol] 120 mg/dL Normal [facility] Comment on above: Result Comment: Zahida mated Average Glucose calculated by equation ((28.7xA1C)-46.7) Estimated average glucose (eAG) is a calculated value from Hemoglobin A1C and is internet sales representative of the average blood glucose level in the last 2-3 month period. Normal range: less than 114 mg/dL Performed By: #### A ELY REYES, BMP, MG, GFR, ADIFF, DIMER, CBC, PBNP, TROPHS #### [address] [address] HbA1c (Bld) [Mass fraction] 5.8 % Normal 4.3-6.4 [facility] Comment on above: Performed By: #### A ELY REYES, BMP, MG, GFR, ADIFF, DIMER, CBC, PBNP, TROPHS #### [address] [address] CMPon 05-14-2024 Albumin Level 3.4 G/dL Low 3.5-5.0 [facility] Comment on above: Performed By: #### A ELY REYES, BMP, MG, GFR, ADIFF, DIMER, CBC, PBNP, TROPHS #### [address] [address] Albumin/Globulin [Mass ratio] 0.9 {ratio} Low 1.1-2.5 [facility] Comment on above: Performed By: #### A ELY REYES, BMP, MG, GFR, ADIFF, DIMER, CBC, PBNP, TROPHS #### [address] [address] ALP [Catalytic activity/Vol] 87 U/L Normal 40-135 [facility] Comment on above: Performed By: #### A ELY REYES, BMP, MG, GFR, ADIFF, DIMER, CBC, PBNP, TROPHS #### [address] [address] ALT [Catalytic activity/Vol] 17 U/L Normal 16-63 [facility] Comment on above: Performed By: #### A ELY REYES, BMP, MG, GFR, ADIFF, DIMER, CBC, PBNP, TROPHS #### [address] [address] AST [Catalytic activity/Vol] 12 U/L Normal 10-40 [facility] Comment on above: Performed By: #### A ELY REYES, BMP, MG, GFR, ADIFF, DIMER, CBC, PBNP, TROPHS #### [place] [address] Bili Total 0.3 mg/dL Normal 0.2-1.0 [facility] Comment on above: Result Comment: Use of this assay is not recommended for patients undergoing treatment with eltrombopag due to the potential for falsely elevated results. Performed By: #### A ELY REYES, JULIÁN, MG, GFR, ADIFF, DIMER, CBC, PBNP, TROPHS #### [address] [address] BUN/Creatinine Ratio 15 ratio Normal 7-27 [facility] Comment on above: Performed By: #### A ELY REYES, BMP, MG, GFR, ADIFF, DIMER, CBC, PBNP, TROPHS #### [address] [address] Calcium [Mass/Vol] 8.9 mg/dL Normal 8.4-10.2 [facility] Comment on above: Performed By: #### A ELY REYES, BMP, MG, GFR, ADIFF, DIMER, CBC, PBNP, TROPHS #### [address] [address] Chloride [Moles/Vol] 101 mmol/L Normal 98-107 [facility] Comment on above: Performed By: #### A ELY REYES, JULIÁN, MG, GFR, ADIFF, DIMER, CBC, PBNP, TROPHS #### [address] [address] CO2 [Moles/Vol] 34 mmol/L High 22-29 [facility] Comment on above: Performed By: #### A ELY REYES, BMP, MG, GFR, ADIFF, DIMER, CBC, PBNP, TROPHS #### [address] [address] Creatinine [Mass/Vol] 0.89 mg/dL Normal 0.70-1.30 [facility] Comment on above: Result Comment: Test ing performed on [employer] Dimension EXL analyzer using a modified kinetic Ciera technique. Performed By: #### A ELY REYES, JULIÁN, MG, GFR, ADIFF, DIMER, CBC, PBNP, TROPHS #### [address] [address] Electrolyte Balance 5.0 mEq/L Normal 4.0-15.0 [facility] Comment on above: Performed By: #### A ELY REYES, JULIÁN, MG, GFR, ADIFF, DIMER, CBC, PBNP, TROPHS #### [address] [address] Globulin 3.8 G/dL Normal [facility] Comment on above: Performed By: #### A ELY REYES, JULIÁN, MG, GFR, ADIFF, DIMER, CBC, PBNP, TROPHS #### [address] [address] Glucose [Mass/Vol] 99 mg/dL Normal 70-105 [facility] Comment on above: Performed By: #### A ELY REYES, JULIÁN, MG, GFR, ADIFF, DIMER, CBC, PBNP, TROPHS #### [address] [address] Potassium [Moles/Vol] 4.0 mmol/L Normal 3.5-5.1 [facility] Comment on above: Performed By: #### A ELY REYES, BMP, MG, GFR, ADIFF, DIMER, CBC, PBNP, TROPHS #### [address] [address] Sodium [Moles/Vol] 140 mmol/L Normal 136-145 [facility] Comment on above: Performed By: #### A ELY REYES, BMP, MG, GFR, ADIFF, DIMER, CBC, PBNP, TROPHS #### [address] [address] Total Protein 7.2 G/dL Normal 6.4-8.2 [facility] Comment on above: Performed By: #### A ELY REYES, JULIÁN, MG, GFR, ADIFF, DIMER, CBC, PBNP, TROPHS #### [address] [address] Urea nitrogen [Mass/Vol] 13 mg/dL Normal 7-18 [facility] Comment on above: Performed By: #### A ELY REYES, JULIÁN, MG, GFR, ADIFF, DIMER, CBC, PBNP, TROPHS #### [address] [address] LABORATORYOrdered By: SYSTEM SYSTEM on 05-14-2024 Albumin [...] calculated value from Hemoglobin A1C and is internet sales representative of the average blood glucose [...] Cholesterol [Mass/Vol] 144 mg/dL Normal 0 - 2 00 mg/dL AO ADM SS Comment on above: [...] 05-14-2024 Cholesterol [Mass/Vol] 144 mg/dL Normal 0-200 [facility] Comment on above: Result Comment: Chol esterol Reference Interval: Less than 200 Desirable 200-239 Borderline high risk 240 and above High risk Performed By: #### A ELY REYES, BMP, MG, GFR, ADIFF, DIMER, CBC, PBNP, TROPHS #### [address] [address] Cholesterol in HDL [Mass/Vol] 24 mg/dL Low 40-60 [facility] Comment on above: Performed By: #### A ELY REYES, BMP, MG, GFR, ADIFF, DIMER, CBC, PBNP, TROPHS #### [address] [address] Cholesterol in LDL [Mass/Vol] 72 mg/dL Normal 0-130 [facility] Comment on above: Performed By: #### A ELY REYES, BMP, MG, GFR, ADIFF, DIMER, CBC, PBNP, TROPHS #### [address] [address] Triglyceride [Mass/Vol] 242 mg/dL High 0-150 [facility] Comment on above: Result Comment: Trig lyceride Reference Interval: Less than 150 Normal 150-199 Borderline high risk 200-499 High risk 500 or higher Very high risk Performed By: #### A ELY REYES, JULIÁN, MG, GFR, ADIFF, DIMER, CBC, PBNP, TROPHS #### [address] [address] Final Surgical Pathology Rep [facility] 03-27-2024 Final Surgical Pathology Report . Pathology Reports Accession: Collected Date/Time: Received Date/Time: Pathologist: [id number] 03/25/2024 15:47 EDT 03/26/2024 07:38 EDT BEAU WILBURN MD Final Surgical Pathology Report DIAGNOSIS: RIGHT ARM EXCISION: - GLOMANGIOMYOMA CLINICAL INFORMATION: SKIN LESION Procedure: EXCISION Preoperative diagnosis: SKIN LESION Postoperative diagnosis: SKIN LESION SPECIMEN: A RIGHT ARM GROSS DESCRIPTION: All parts labelled with patient name and [id number] Received in formalin labelled right arm excision Is a unoriented ellipse of skin measuring 1.5 x 0.4 and excised to depth of 1.2 cm. Excision margin inked black. Skin surface grossly unremarkable, located within the underlying soft tissue is a santillan firm well-circumscribed possible mass/lymph node measuring 0.6 x 0.6 x 0.6 cm. TS-2 Austin Somers, Pathologists' Studio Technician Video Operator (ASCP) Performed by AUSTIN SOMERS MICROSCOPIC DESCRIPTION: The microscopic examination is performed, except in the case of Gross Only. Electronically Signed by Pathology Report verified by [facility] BEAU FORRESTERTU Sign out Date: 03/27/2024 16:10 Performing Lab: [facility], [address] [place] [address] Pathology Dept Disclaimer If ancillary studies were utilized, the following Laboratory Developed Test (LDT) disclaimer will apply: Under CLIA requirements, [facility] is qualified to perform high complexity testing. For all ancillary stains, positive and negative controls stain appropriately. Performance characteristics of immunohistochemical and chromogenic in-situ hybridization tests have been determined by [facility]. These tests are used for clinical purposes, They should not be regarded as investigational or for research. Normal [facility] US SOFT TISSUE MASS OF RT AR [...] Sign Date: 02/18/2024 11:09:23 AM Ordering Provider: GIRMA CORREA Normal [facility] TSHon 02-15-2024 TSH Qn 1.65 m[IU]/L Normal 0.36-3.74 [facility] Comment on above: Performed By: #### A ELY REYES, JULIÁN, MG, GFR, ADIFF, DIMER, CBC, PBNP, TROPHS #### [address] [address] .GFRon 02-12-2024 GFR 95 ml/min/1.73sqm [facility] Comment on above: Result Comment: GFR Population [...] mL/min/1.73 square meters Performed By: #### A ELY REYES, JULIÁN, MG, GFR, ADIFF, DIMER, CBC, PBNP, TROPHS #### [address] [address] GFR Non- 78 ml/min/1.73sqm [facility] Comment on above: Result Comment: GFR Population [...] mL/min/1.73 square meters Performed By: #### A ELY REYES, BMP, MG, GFR, ADIFF, DIMER, CBC, PBNP, TROPHS #### [address] [address] A1Con 02-12-2024 Glucose [Mass/Vol] 131 mg/dL Normal [facility] Comment on above: Result Comment: Zahida mated Average Glucose calculated by equation ((28.7xA1C)-46.7) Estimated average glucose (eAG) is a calculated value from Hemoglobin A1C and is internet sales representative of the average blood glucose level in the last 2-3 month period. Normal range: less than 114 mg/dL Performed By: #### A ELY REYES, BMP, MG, GFR, ADIFF, DIMER, CBC, PBNP, TROPHS #### [address] [address] HbA1c (Bld) [Mass fraction] 6.2 % Normal 4.3-6.4 [facility] Comment on above: Performed By: #### A ELY REYES, BMP, MG, GFR, ADIFF, DIMER, CBC, PBNP, TROPHS #### [address] [address] CMPon 02-12-2024 Albumin Level 3.3 G/dL Low 3.5-5.0 [facility] Comment on above: Performed By: #### A ELY REYES, BMP, MG, GFR, ADIFF, DIMER, CBC, PBNP, TROPHS #### [address] [address] Albumin/Globulin [Mass ratio] 0.9 {ratio} Low 1.1-2.5 [facility] Comment on above: Performed By: #### A ELY REYES, BMP, MG, GFR, ADIFF, DIMER, CBC, PBNP, TROPHS #### [address] [address] ALP [Catalytic activity/Vol] 74 U/L Normal 40-135 [facility] Comment on above: Performed By: #### A ELY REYES, BMP, MG, GFR, ADIFF, DIMER, CBC, PBNP, TROPHS #### [address] [address] ALT [Catalytic activity/Vol] 20 U/L Normal 16-63 [facility] Comment on above: Performed By: #### A ELY REYES, BMP, MG, GFR, ADIFF, DIMER, CBC, PBNP, TROPHS #### [address] [address] AST [Catalytic activity/Vol] 13 U/L Normal 10-40 [facility] Comment on above: Performed By: #### A ELY REYES, BMP, MG, GFR, ADIFF, DIMER, CBC, PBNP, TROPHS #### [address] [id number] Bili Total 0.5 mg/dL Normal 0.2-1.0 [facility] Comment on above: Result Comment: Use of this assay is not recommended for patients undergoing treatment with eltrombopag due to the potential for falsely elevated results. Performed By: #### A ELY REYES, BMP, MG, GFR, ADIFF, DIMER, CBC, PBNP, TROPHS #### [address] [address] [address] BUN/Creatinine Ratio 6 ratio Low 7-27 [facility] Comment on above: Performed By: #### A ELY REYES, BMP, MG, GFR, ADIFF, DIMER, CBC, PBNP, TROPHS #### [address] [address] Calcium [Mass/Vol] 8.5 mg/dL Normal 8.4-10.2 [facility] Comment on above: Performed By: #### A ELY REYES, BMP, MG, GFR, ADIFF, DIMER, CBC, PBNP, TROPHS #### [address] [address] Chloride [Moles/Vol] 100 mmol/L Normal 98-107 [facility] Comment on above: Performed By: #### A MD ERICW, BMP, MG, GFR, ADIFF, DIMER, CBC, PBNP, TROPHS #### [address] [address] CO2 [Moles/Vol] 34 mmol/L High 22-29 [facility] Comment on above: Performed By: #### A ELY REYES, BMP, MG, GFR, ADIFF, DIMER, CBC, PBNP, TROPHS #### [address] [address] Creatinine [Mass/Vol] 1.00 mg/dL Normal 0.70-1.30 [facility] Comment on above: Result Comment: Test ing performed on Siemens Dimension EXL analyzer using a modified kinetic Ciera technique. Performed By: #### A ELY REYES, BMP, MG, GFR, ADIFF, DIMER, CBC, PBNP, TROPHS #### [address] [address] Electrolyte Balance 4.0 mEq/L Normal 4.0-15.0 [facility] Comment on above: Performed By: #### A ELY REYES, BMP, MG, GFR, ADIFF, DIMER, CBC, PBNP, TROPHS #### [address] [address] Globulin 3.8 G/dL Normal [facility] Comment on above: Performed By: #### A ELY REYES, BMP, MG, GFR, ADIFF, DIMER, CBC, PBNP, TROPHS #### [address] [address] Glucose [Mass/Vol] 80 mg/dL Normal 70-105 [facility] Comment on above: Performed By: #### A ELY REYES, BMP, MG, GFR, ADIFF, DIMER, CBC, PBNP, TROPHS #### [address] [address] Potassium [Moles/Vol] 4.3 mmol/L Normal 3.5-5.1 [facility] Comment on above: Performed By: #### A ELY REYES, BMP, MG, GFR, ADIFF, DIMER, CBC, PBNP, TROPHS #### [address] [address] Sodium [Moles/Vol] 138 mmol/L Normal 136-145 [facility] Comment on above: Performed By: #### A ELY REYES, BMP, MG, GFR, ADIFF, DIMER, CBC, PBNP, TROPHS #### [place] [id number] [place], [place] [address] Total Protein 7.1 G/dL Normal 6.4-8.2 [facility] Comment on above: Performed By: #### A ELY REYES, JULIÁN, MG, GFR, ADIFF, DIMER, CBC, PBNP, TROPHS #### [place] [id number] Urea nitrogen [Mass/Vol] 6 mg/dL Low 7-18 [facility] Comment on above: Performed By: #### A ELY REYES, JULIÁN, MG, GFR, ADIFF, DIMER, CBC, PBNP, TROPHS #### [address] [address] LABORATORYOrdered By: SYSTEM SYSTEM on 02-12-2024 Albumin [...] calculated value from Hemoglobin A1C and is internet sales representative of the average blood glucose [...] Cholesterol [Mass/Vol] 117 mg/dL Normal 0 - 2 00 mg/dL AO ADM SS Comment on above: [...] 02-12-2024 Cholesterol [Mass/Vol] 117 mg/dL Normal 0-200 [facility] Comment on above: Result Comment: Chol esterol Reference Interval: Less than 200 Desirable 200-239 Borderline high risk 240 and above High risk Performed By: #### A ERIC, ELY, BMP, MG, GFR, ADIFF, DIMER, CBC, PBNP, TROPHS #### [address] [address] Cholesterol in HDL [Mass/Vol] 25 mg/dL Low 40-60 [facility] Comment on above: Performed By: #### A ELY REYES, BMP, MG, GFR, ADIFF, DIMER, CBC, PBNP, TROPHS #### [address] [address] Cholesterol in LDL [Mass/Vol] 53 mg/dL Normal 0-130 [facility] Comment on above: Performed By: #### A ELY REYES, BMP, MG, GFR, ADIFF, DIMER, CBC, PBNP, TROPHS #### [address] [address] Triglyceride [Mass/Vol] 196 mg/dL High 0-150 [facility] Comment on above: Result Comment: Trig lyceride Reference Interval: Less than 150 Normal 150-199 Borderline high risk 200-499 High risk 500 or higher Very high risk Performed By: #### A ELY REYES, BMP, MG, GFR, ADIFF, DIMER, CBC, PBNP, TROPHS #### [address] [address] PSAon 02-12-2024 Prostate Specific Antigen 0.25 ng/mL Normal 0.00-4.00 [facility] Comment on above: Performed By: #### A ELY REYES, BMP, MG, GFR, ADIFF, DIMER, CBC, PBNP, TROPHS #### [address] [address] .Auto Diffon 02-01-2024 Basophil, Absolute 0.1 10 3/mcL Normal 0.0-0.3 [facility] ([place]) Comment on above: Performed By: #### A DIFF, TROPHS, GFR, BMP, MDW, CBC, PBNP, ANEU #### [address] [address] Basophils/100 WBC (Bld) 0.8 % Normal 0.0-2.5 [facility] ([place]) Comment on above: Performed By: #### A DIFF, TROPHS, GFR, BMP, MDW, CBC, PBNP, ANEU #### [address] [address] Eosinophil, Absolute 0.1 10 3/mcL Normal 0.0-0.7 [facility] ([place]) Comment on above: Performed By: #### A DIFF, TROPHS, GFR, BMP, MDW, CBC, PBNP, ANEU #### [address] [address] Eosinophils/100 WBC (Bld) 1.2 % Normal 0.0-6.0 [facility] ([place]) Comment on above: Performed By: #### A DIFF, TROPHS, GFR, BMP, MDW, CBC, PBNP, ANEU #### [address] [address] Lymphocyte, Absolute 1.4 10 3/mcL Normal 0.9-4.3 [facility] ([place]) Comment on above: Performed By: #### A DIFF, TROPHS, GFR, BMP, MDW, CBC, PBNP, ANEU #### [address] [address] Lymphocytes/100 WBC (Bld) 19.9 % Low 20.0-40.0 [facility] ([place]) Comment on above: Performed By: #### A DIFF, TROPHS, GFR, BMP, MDW, CBC, PBNP, ANEU #### [address] [address] Monocyte, Absolute 0.7 10 3/mcL Normal 0.1-1.4 [facility] ([place]) Comment on above: Performed By: #### A DIFF, TROPHS, GFR, BMP, MDW, CBC, PBNP, ANEU #### [address] [address] Monocytes/100 WBC (Bld) 9.4 % Normal 2.0-13.0 [facility] ([place]) Comment on above: Performed By: #### A DIFF, TROPHS, GFR, BMP, MDW, CBC, PBNP, ANEU #### [address] [address] Neutrophils/100 WBC (Bld) 68.7 % Normal 50.0-75.0 [facility] ([place] Comment on above: Performed By: #### A DIFF, TROPHS, GFR, BMP, MDW, CBC, PBNP, ANEU #### [address] [address] .GFRon 02-01-2024 GFR >60 Normal [facility] ([place]) Comment on above: Result Comment: GFR Population [...] BMP, MDW, CBC, PBNP, ANEU #### [address] [address] GFR Non- >60 Normal [facility] ([place]) Comment on above: Result Comment: GFR Population [...] BMP, MDW, CBC, PBNP, ANEU #### [address] [address] .NEUABSon 02-01-2024 Neutrophil, Absolute 4.8 10 3/mcL Normal 2.3-8.1 [facility] ([place]) Comment on above: Performed By: #### A DIFF, TROPHS, GFR, BMP, MDW, CBC, PBNP, ANEU #### [address] [address] APTTon 02-01-2024 aPTT Coag (Bld) [Time] 47.1 s High 25.0-35.0 [facility] ([place]) Comment on above: Result Comment: For Heparin anticoagulation therapy, the recommended therapeutic range is: 54-77 seconds (APTT Correlation with Anti-Xa therapeutic range of 0.3-0.7 units/ml). PLEASE REFERENCE THE PHARMACY PROTOCOL FOR DOSING. Performed By: #### A DIFF, TROPHS, GFR, BMP, MDW, CBC, PBNP, ANEU #### [address] [address] aPTT Coag (Bld) [Time] 46.1 s High 25.0-35.0 [facility] ([place]) Comment on above: Result Comment: For Heparin anticoagulation therapy, the recommended therapeutic range is: 54-77 seconds (APTT Correlation with Anti-Xa therapeutic range of 0.3-0.7 units/ml). PLEASE REFERENCE THE PHARMACY PROTOCOL FOR DOSING. Performed By: #### A DIFF, TROPHS, GFR, BMP, MDW, CBC, PBNP, ANEU #### [address] [address] BMPon 02-01-2024 BUN/Creatinine Ratio 14.8 ratio Normal 10.0-22.0 [facility] ([place]) Comment on above: Performed By: #### A DIFF, TROPHS, GFR, BMP, MDW, CBC, PBNP, ANEU #### [address] [address] Calcium [Mass/Vol] 8.8 mg/dL Normal 8.7-10.4 [facility] ([place]) Comment on above: Performed By: #### A DIFF, TROPHS, GFR, BMP, MDW, CBC, PBNP, ANEU #### [address] [address] Chloride [Moles/Vol] 100 mmol/L Normal 98-110 [facility] ([place]) Comment on above: Performed By: #### A DIFF, TROPHS, GFR, BMP, MDW, CBC, PBNP, ANEU #### [address] [address] CO2 [Moles/Vol] 32 mmol/L Normal 22-32 [facility] ([place]) Comment on above: Performed By: #### A DIFF, TROPHS, GFR, BMP, MDW, CBC, PBNP, ANEU #### [address] [address] Creatinine [Mass/Vol] 1.15 mg/dL Normal 0.60-1.40 [facility] ([place]) Comment on above: Result Comment: Test ing performed on [employer] analyzer using enzymatic creatinine methodology. Performed By: #### A DIFF, TROPHS, GFR, BMP, MDW, CBC, PBNP, ANEU #### [address] [address] Electrolyte Balance 5.0 mEq/L Normal 4.0-15.0 [facility] Comment on above: Performed By: #### A DIFF, TROPHS, GFR, BMP, MDW, CBC, PBNP, ANEU #### [address] [address] Glucose [Mass/Vol] 124 mg/dL High 70-110 [facility] ([place]) Comment on above: Performed By: #### A DIFF, TROPHS, GFR, BMP, MDW, CBC, PBNP, ANEU #### [address] [address] Potassium [Moles/Vol] 3.4 mmol/L Low 3.5-5.0 [facility] ([place]) Comment on above: Performed By: #### A DIFF, TROPHS, GFR, BMP, MDW, CBC, PBNP, ANEU #### [address] [address] Sodium [Moles/Vol] 137 mmol/L Normal 136-145 [facility] ([place]) Comment on above: Performed By: #### A DIFF, TROPHS, GFR, BMP, MDW, CBC, PBNP, ANEU #### [address] [address] Urea nitrogen [Mass/Vol] 17.0 mg/dL Normal 8.0-22.0 [facility] ([place]) Comment on above: Performed By: #### A DIFF, TROPHS, GFR, BMP, MDW, CBC, PBNP, ANEU #### [address] [address] CBCon 02-01-2024 Erythrocyte distribution width (RBC) [Ratio] 16.2 % High 11.5-15.5 [facility] ([place]) Comment on above: Performed By: #### A DIFF, TROPHS, GFR, BMP, MDW, CBC, PBNP, ANEU #### [address] [address] Hematocrit (Bld) [Volume fraction] 40.5 % Normal 40.0-52.0 [facility] ([place]) Comment on above: Performed By: #### A DIFF, TROPHS, GFR, BMP, MDW, CBC, PBNP, ANEU #### [address] [address] Hgb 13.0 G/dL Normal 13.0-17.5 [facility] ([place]) Comment on above: Performed By: #### A DIFF, TROPHS, GFR, BMP, MDW, CBC, PBNP, ANEU #### [address] [address] MCH (RBC) [Entitic mass] 26.0 pg Low 27.0-33.0 [facility] ([place]) Comment on above: Performed By: #### A DIFF, TROPHS, GFR, BMP, MDW, CBC, PBNP, ANEU #### [address] [address] MCHC 32.2 G/dL Normal 32.0-36.0 [facility] ([place]) Comment on above: Performed By: #### A DIFF, TROPHS, GFR, BMP, MDW, CBC, PBNP, ANEU #### [address] [address] MCV (RBC) [Entitic vol] 80.6 fL Low 81.0-100.0 [facility] ([place]) Comment on above: Performed By: #### A DIFF, TROPHS, GFR, BMP, MDW, CBC, PBNP, ANEU #### [address] [address] Platelet 161 10 3/mcL Normal 150-450 [facility] ([place]) Comment on above: Performed By: #### A DIFF, TROPHS, GFR, BMP, MDW, CBC, PBNP, ANEU #### [address] [address] Platelet mean volume (Bld) [Entitic vol] 6.8 fL Normal 6.4-10.5 [facility] ([place]) Comment on above: Performed By: #### A DIFF, TROPHS, GFR, BMP, MDW, CBC, PBNP, ANEU #### [address] [address] RBC 5.02 10 6/mcL Normal 4.50-6.00 [facility] ([place]) Comment on above: Performed By: #### A DIFF, TROPHS, GFR, BMP, MDW, CBC, PBNP, ANEU #### [address] [address] WBC 6.9 10 3/mcL Normal 4.5-10.8 [facility] ([place]) Comment on above: Performed By: #### A DIFF, TROPHS, GFR, BMP, MDW, CBC, PBNP, ANEU #### [address] [address] LABORATORYOrdered By: SYSTEM SYSTEM on 02-01-2024 aPTT Coag (Bld) [Time] 47.1 s High 25.0 - 35.0 seconds [facility]oHub [...] above: Interpretive Data: T esting performed on [employer] analyzer using enzymatic creatinine methodology. Electrolyte Balance [...] 40.5 % Normal 40.0 - 52.0 % Workflow SS Hemoglobin (Bld) [Mass/Vol] 13.0 G/dL Normal 13.0 - 17.5 G/dL AH Workflow SS Lymphocytes (Bld) [#/Vol] 1.4 103/mcL Normal 0.9 - 4.3 10^3/mcL Workflow SS Lymphocytes/100 WBC (Bld) 19.9 % Low 20.0 - 40.0 % Workflow SS Magnesium [Mass/Vol] 2.2 mg/dL Normal [...] [Mass/Vol] 2.2 mg/dL Normal 1.6-2.4 [facility] ([place]) Comment on above: Performed By: #### A DIFF, TROPHS, GFR, BMP, MDW, CBC, PBNP, ANEU #### [place] [address] .Auto Diffon 01-31-2024 Basophil, Absolute 0.1 10 3/mcL Normal 0.0-0.3 [facility] ([place]) Comment on above: Performed By: #### A DIFF, TROPHS, GFR, BMP, MDW, CBC, PBNP, ANEU #### [address] [address] Basophils/100 WBC (Bld) 1.0 % Normal 0.0-2.5 [facility] ([place]) Comment on above: Performed By: #### A DIFF, TROPHS, GFR, BMP, MDW, CBC, PBNP, ANEU #### [address] [address] Eosinophil, Absolute 0.1 10 3/mcL Normal 0.0-0.7 [facility] ([place]) Comment on above: Performed By: #### A DIFF, TROPHS, GFR, BMP, MDW, CBC, PBNP, ANEU #### [address] [address] Eosinophils/100 WBC (Bld) 1.1 % Normal 0.0-6.0 [facility] ([place]) Comment on above: Performed By: #### A DIFF, TROPHS, GFR, BMP, MDW, CBC, PBNP, ANEU #### [address] [address] Lymphocyte, Absolute 3.0 10 3/mcL Normal 0.9-4.3 [facility] ([place]) Comment on above: Performed By: #### A DIFF, TROPHS, GFR, BMP, MDW, CBC, PBNP, ANEU #### [address] [address] Lymphocytes/100 WBC (Bld) 22.7 % Normal 20.0-40.0 [facility] ([place]) Comment on above: Performed By: #### A DIFF, TROPHS, GFR, BMP, MDW, CBC, PBNP, ANEU #### [address] [address] Monocyte, Absolute 1.4 10 3/mcL Normal 0.1-1.4 [facility] ([place]) Comment on above: Performed By: #### A DIFF, TROPHS, GFR, BMP, MDW, CBC, PBNP, ANEU #### [address] [address] Monocytes/100 WBC (Bld) 11.0 % Normal 2.0-13.0 [facility] ([place]) Comment on above: Performed By: #### A DIFF, TROPHS, GFR, BMP, MDW, CBC, PBNP, ANEU #### [address] [address] Neutrophils/100 WBC (Bld) 64.2 % Normal 50.0-75.0 [facility] ([place]) Comment on above: Performed By: #### A DIFF, TROPHS, GFR, BMP, MDW, CBC, PBNP, ANEU #### [address] [address] .GFRon 01-31-2024 GFR 46 ml/min/1.73sqm Normal [facility] ([place]) Comment on above: Result Comment: GFR Population [...] BMP, MDW, CBC, PBNP, ANEU #### [address] [address] GFR Non- 38 ml/min/1.73sqm Normal [facility] ([place]) Comment on above: Result Comment: GFR Population [...] BMP, MDW, CBC, PBNP, ANEU #### [address] [address] .NEUABSon 01-31-2024 Neutrophil, Absolute 8.5 10 3/mcL High 2.3-8.1 [facility] ([place]) Comment on above: Performed By: #### A DIFF, TROPHS, GFR, BMP, MDW, CBC, PBNP, ANEU #### [address] [address] APTTon 01-31-2024 aPTT Coag (Bld) [Time] 34.5 s Normal 25.0-35.0 [facility] ([place]) Comment on above: Result Comment: For Heparin anticoagulation therapy, the recommended therapeutic range is: 54-77 seconds (APTT Correlation with Anti-Xa therapeutic range of 0.3-0.7 units/ml). PLEASE REFERENCE THE PHARMACY PROTOCOL FOR DOSING. Performed By: #### A DIFF, TROPHS, GFR, BMP, MDW, CBC, PBNP, ANEU #### [address] [address] aPTT Coag (Bld) [Time] 33.9 s Normal 25.0-35.0 [facility] ([place]) Comment on above: Result Comment: For Heparin anticoagulation therapy, the recommended therapeutic range is: 54-77 seconds (APTT Correlation with Anti-Xa therapeutic range of 0.3-0.7 units/ml). PLEASE REFERENCE THE PHARMACY PROTOCOL FOR DOSING. Performed By: #### A DIFF, TROPHS, GFR, BMP, MDW, CBC, PBNP, ANEU #### [address] [address] aPTT Coag (Bld) [Time] 26.2 s Normal 25.0-35.0 [facility] ([place]) Comment on above: Result Comment: For Heparin anticoagulation therapy, the recommended therapeutic range is: 54-77 seconds (APTT Correlation with Anti-Xa therapeutic range of 0.3-0.7 units/ml). PLEASE REFERENCE THE PHARMACY PROTOCOL FOR DOSING. Performed By: #### A DIFF, TROPHS, GFR, BMP, MDW, CBC, PBNP, ANEU #### [address] [address] CAIONon 01-31-2024 Calcium Ionized 1.07 mmol/L Low 1.12-1.32 [facility] ([place]) Comment on above: Performed By: #### T ROPHS, CMP, CAION, LAC, CBC, ADIFF, GFR, PHOS, MG, ANEU #### [place] [address] CBCon 01-31-2024 Erythrocyte distribution width (RBC) [Ratio] 16.3 % High 11.5-15.5 [facility] ([place]) Comment on above: Performed By: #### A DIFF, TROPHS, GFR, BMP, MDW, CBC, PBNP, ANEU #### [address] [address] Hematocrit (Bld) [Volume fraction] 42.8 % Normal 40.0-52.0 [facility] ([place]) Comment on above: Performed By: #### A DIFF, TROPHS, GFR, BMP, MDW, CBC, PBNP, ANEU #### [address] [address] Hgb 14.0 G/dL Normal 13.0-17.5 [facility] ([place]) Comment on above: Performed By: #### A DIFF, TROPHS, GFR, BMP, MDW, CBC, PBNP, ANEU #### [address] [address] MCH (RBC) [Entitic mass] 25.9 pg Low 27.0-33.0 [facility] ([place]) Comment on above: Performed By: #### A DIFF, TROPHS, GFR, BMP, MDW, CBC, PBNP, ANEU #### [address] [address] MCHC 32.6 G/dL Normal 32.0-36.0 [facility] ([place]) Comment on above: Performed By: #### A DIFF, TROPHS, GFR, BMP, MDW, CBC, PBNP, ANEU #### [address] [address] MCV (RBC) [Entitic vol] 79.5 fL Low 81.0-100.0 [facility] ([place]) Comment on above: Performed By: #### A DIFF, TROPHS, GFR, BMP, MDW, CBC, PBNP, ANEU #### [address] [address] Platelet 270 10 3/mcL Normal 150-450 [facility] ([place]) Comment on above: Performed By: #### A DIFF, TROPHS, GFR, BMP, MDW, CBC, PBNP, ANEU #### [address] [address] Platelet mean volume (Bld) [Entitic vol] 7.0 fL Normal 6.4-10.5 [facility] ([place]) Comment on above: Performed By: #### A DIFF, TROPHS, GFR, BMP, MDW, CBC, PBNP, ANEU #### [address] [address] RBC 5.39 10 6/mcL Normal 4.50-6.00 [facility] ([place]) Comment on above: Performed By: #### A DIFF, TROPHS, GFR, BMP, MDW, CBC, PBNP, ANEU #### [address] [address] WBC 13.2 10 3/mcL High 4.5-10.8 [facility] ([place]) Comment on above: Performed By: #### A DIFF, TROPHS, GFR, BMP, MDW, CBC, PBNP, ANEU #### [address] [address] CMPon 01-31-2024 Albumin Level 3.0 G/dL Low 3.2-4.8 [facility] ([place]) Comment on above: Performed By: #### A DIFF, TROPHS, GFR, BMP, MDW, CBC, PBNP, ANEU #### [address] [address] Albumin/Globulin [Mass ratio] 0.8 {ratio} Low 0.9-1.6 [facility] ([place]) Comment on above: Performed By: #### A DIFF, TROPHS, GFR, BMP, MDW, CBC, PBNP, ANEU #### [address] [address] ALP [Catalytic activity/Vol] 77 U/L Normal 38-126 [facility] ([place]) Comment on above: Performed By: #### A DIFF, TROPHS, GFR, BMP, MDW, CBC, PBNP, ANEU #### [address] [address] ALT/SGPT <8 Low 12-55 [facility] ([place]) Comment on above: Performed By: #### A DIFF, TROPHS, GFR, BMP, MDW, CBC, PBNP, ANEU #### [address] [address] AST [Catalytic activity/Vol] 12 U/L Normal 8-34 [facility] ([place]) Comment on above: Performed By: #### A DIFF, TROPHS, GFR, BMP, MDW, CBC, PBNP, ANEU #### [address] [address] Bili Total 0.40 mg/dL Normal 0.20-1.20 [facility] ([place]) Comment on above: Result Comment: Use of this assay is not recommended for patients undergoing treatment with eltrombopag due to the potential for falsely elevated results. Performed By: #### A DIFF, TROPHS, GFR, BMP, MDW, CBC, PBNP, ANEU #### [place] [address] [place], [place] [address] BUN/Creatinine Ratio 11.2 ratio Normal 10.0-22.0 [facility] ([place]) Comment on above: Performed By: #### A DIFF, TROPHS, GFR, BMP, MDW, CBC, PBNP, ANEU #### [address] [address] Calcium [Mass/Vol] 8.8 mg/dL Normal 8.7-10.4 [facility] ([place]) Comment on above: Performed By: #### A DIFF, TROPHS, GFR, BMP, MDW, CBC, PBNP, ANEU #### [address] [address] Chloride [Moles/Vol] 100 mmol/L Normal 98-110 [facility] ([place]) Comment on above: Performed By: #### A DIFF, TROPHS, GFR, BMP, MDW, CBC, PBNP, ANEU #### [address] [address] CO2 [Moles/Vol] 29 mmol/L Normal 22-32 [facility] ([place]) Comment on above: Performed By: #### A DIFF, TROPHS, GFR, BMP, MDW, CBC, PBNP, ANEU #### [address] [address] Creatinine [Mass/Vol] 1.87 mg/dL High 0.60-1.40 [facility] ([place]) Comment on above: Result Comment: Test ing performed on [employer] analyzer using enzymatic creatinine methodology. Performed By: #### A DIFF, TROPHS, GFR, BMP, MDW, CBC, PBNP, ANEU #### [address] [address] Electrolyte Balance 8.0 mEq/L Normal 4.0-15.0 [facility] [place] Comment on above: Performed By: #### A DIFF, TROPHS, GFR, BMP, MDW, CBC, PBNP, ANEU #### [address] [address] Globulin 3.7 G/dL Normal 1.5-3.8 [facility] ([place]) Comment on above: Performed By: #### A DIFF, TROPHS, GFR, BMP, MDW, CBC, PBNP, ANEU #### [address] [address] Glucose [Mass/Vol] 133 mg/dL High 70-110 [facility] ([place]) Comment on above: Performed By: #### A DIFF, TROPHS, GFR, BMP, MDW, CBC, PBNP, ANEU #### [address] [address] Potassium [Moles/Vol] 3.6 mmol/L Normal 3.5-5.0 [facility] ([place]) Comment on above: Performed By: #### A DIFF, TROPHS, GFR, BMP, MDW, CBC, PBNP, ANEU #### [address] [address] Sodium [Moles/Vol] 137 mmol/L Normal 136-145 [facility] ([place]) Comment on above: Performed By: #### A DIFF, TROPHS, GFR, BMP, MDW, CBC, PBNP, ANEU #### [address] [address] Total Protein 6.7 G/dL Normal 5.7-8.2 On license of [facility]) Comment on above: Result Comment: No te - New Reference Range in effect 19 Performed By: #### A DIFF, TROPHS, GFR, BMP, MDW, CBC, PBNP, ANEU #### [address] [address] Urea nitrogen [Mass/Vol] 21.0 mg/dL Normal 8.0-22.0 [facility] ([place]) Comment on above: Performed By: #### A DIFF, TROPHS, GFR, BMP, MDW, CBC, PBNP, ANEU #### [address] [address] CVFLURVon 01-31-2024 FLU A PCR Negative Normal Negative [facility] ([place]) Comment on above: Result Comment: [place] [phone] Performed By: #### A DIFF, TROPHS, GFR, BMP, MDW, CBC, PBNP, ANEU #### [place] [address] FLU B PCR Negative Normal Negative [facility] ([place]) Comment on above: Result Comment: Note [place] [phone] Performed By: #### A DIFF, TROPHS, GFR, BMP, MDW, CBC, PBNP, ANEU #### [place] [address] RSV PCR Negative Normal Negative [facility] ([place]) Comment on above: Result Comment: Note s [phone] Performed By: #### A DIFF, TROPHS, GFR, BMP, MDW, CBC, PBNP, ANEU #### [place] [address] SARS-CoV-2 (COVID-19) RNA ROSE+probe Ql (Unsp spec) Negative Normal Negative [facility] ([place]) Comment on above: Result Comment: Note s [phone] This test has been authorized by FDA [...] GFR, BMP, MDW, CBC, PBNP, ANEU #### [place] [address] LABORATORYOrdered By: SYSTEM SYSTEM on 01-31-2024 aPTT [...] above: Interpretive Data: T esting performed on [employer] analyzer using enzymatic creatinine methodology. Electrolyte Balance [...] rate/Area] 46 ml/min/1.73sqm Invalid Interpretation Code ADM Comment on [...] [Vol rate/Area] 38 ml/min/1.73sqm Invalid Interpretation Code [facility] Comment on above: Interpretive Data: GFR [...] s High 9.0 - 1 4.4 seconds [facility] Comment on above: Interpretive Data: E ffective 12/11/07, Protime results may be affected by some antibiotics (i.e. Ciprofloxacin, Azithromycin, Bactrim) which may potentiate the action of oral anticoagulants, with further increases in Protime/INR. PT International Ratio 1.3 ratio Invalid Interpretation Code [facility] Comment on above: Interpretive Data: Baljinder he [employer] (CHEST, 1992, [id number]) recommended therapeutic range for oral anticoagulant therapy is: LOW RISK: Prophylaxis of venous thrombosis INR: 2.0-3.0 Treatment of pulmonary embolism 2.0-3.0 Prevention of systemic embolism 2.0-3.0 HIGH RISK: Mechanical prosthetic valves 2.5-3.5 RBC (Bld) [#/Vol] 5.39 106/mcL Normal 4.50 - 6.0 0 10^6/mcL Workflow SS Sodium [Moles/Vol] 137 mmol/L Normal 136 - 145 mEq/L [facility] Troponin I.cardiac DL <= 0.01 ng/mL [Mass/Vol] 4 ng/L Normal 0 - 54 ng/L [facility] Comment on above: Interpretive Data: High Sensitive Troponin I Reference Ranges: Female: 0-34 ng/L Male: 0-54 ng/L Testing performed on [employer] analyzer using direct chemiluminescent technology. Urea nitrogen [Mass/Vol] 21.0 mg/dL Normal 8.0 - 22.0 mg/dL [facility] Urea nitrogen/Creatinine [Mass ratio] 11.2 ratio Normal 10.0 - 22.0 ratio ADM WBC (Bld) [#/Vol] 13.2 103/mcL High 4.5 - 10.8 10^3/mcL Workflow SS LABORATORYOrdered By: Yoanna Coleman on 01-31-2024 Blood Glucose Testing Reason Routine (01/31/24 7:30 AM) [facility] Glucose [Mass/Vol] 146 mg/dL High 70 - 110 mg/dL [facility] LABORATORYOrdered By: Jacqueline reginald Bhavesh on 01-31-2024 FLUAV RNA ROSE+probe Ql (Resp) Negative 15 (01/31/24 4:30 AM) Normal Negative AH Auto Viro/Sero SS Comment on above: Result Comment: Note s [id number] FLUBV RNA ROSE+probe Ql (Resp) Negative 16 (01/31/24 4:30 AM) Normal Negative AH Auto Viro/Sero SS Comment on above: Result Comment: Note s [id number] RSV PCR Negative 17 (01/31/24 4:30 AM) Normal Negative AH Auto Viro/Sero SS Comment on above: Result Comment: Note s [id number] SARS-CoV-2 (COVID-19) RNA ROSE+probe Ql (Resp) Negative 13, 14 (01/31/24 4:30 AM) Normal Negative AH Auto Viro/Sero SS Comment on above: Result Comment: Note s [id number] Interpretive Data: T his test has been [...] Glucose Testing Reason Routine (01/31/24 2:48 AM) [facility] Glucose [Mass/Vol] 153 mg/dL High 70 - 110 mg/dL [facility] LACon 01-31-2024 Lactic Acid Lvl 1.2 mmol/L Normal 0.5-2.2 [facility] ([place]) Comment on above: Result Comment: Spec imen hemolyzed. Results may be affected. Performed By: #### A DIFF, TROPHS, GFR, BMP, MDW, CBC, PBNP, ANEU #### [address] [address] MGon 01-31-2024 Magnesium [Mass/Vol] 1.5 mg/dL Low 1.6-2.4 [facility] ([place]) Comment on above: Performed By: #### A DIFF, TROPHS, GFR, BMP, MDW, CBC, PBNP, ANEU #### [address] [address] No Panel Informationon 01-30 Microscopic examination of blood, culture Culture has been received in lab and is no growth to date. Routine cultures are held for 5 days. [facility] PHOSon 01-31-2024 Phosphate [Mass/Vol] 3.1 mg/dL Normal 2.4-5.1 [facility] ([place]) Comment on above: Result Comment: No te - New Reference Range in effect 19 Performed By: #### A DIFF, TROPHS, GFR, BMP, MDW, CBC, PBNP, ANEU #### [address] [address] PROon 01-31-2024 INR Coag (PPP) [Relative time] 1.3 {INR} Normal [facility] ([place]) Comment on above: Result Comment: The [employer] (CHEST, 1992, 102:[id number]) recommended therapeutic range for oral anticoagulant therapy is: LOW RISK: Prophylaxis of venous thrombosis INR: 2.0-3.0 Treatment of pulmonary embolism 2.0-3.0 Prevention of systemic embolism 2.0-3.0 HIGH RISK: Mechanical prosthetic valves 2.5-3.5 Performed By: #### A DIFF, TROPHS, GFR, BMP, MDW, CBC, PBNP, ANEU #### [address] [address] PT Coag (PPP) [Time] 14.7 s High 9.0-14.4 [facility] ([place]) Comment on above: Result Comment: Effe ctive 12/11/07, Protime results may be affected by some antibiotics (i.e. Ciprofloxacin, Azithromycin, Bactrim) which may potentiate the action of oral anticoagulants, with further increases in Protime/INR. Performed By: #### A DIFF, TROPHS, GFR, BMP, MDW, CBC, PBNP, ANEU #### [address] [address] TROPHSon 01-31-2024 High Sensitivity Troponin I 4 ng/L Normal 0-54 [facility] ([place]) Comment on above: Result Comment: High Sensitive Troponin I Reference Ranges: Female: 0-34 ng/L Male: 0-54 ng/L Testing performed on [employer] analyzer using direct chemiluminescent technology. Performed By: #### A DIFF, TROPHS, GFR, BMP, MDW, CBC, PBNP, ANEU #### [address] [address] .Auto Diffon 01-30-2024 Basophil, Absolute 0.2 10 3/mcL Normal 0.0-0.2 [facility] ([place]) Comment on above: Performed By: #### A DIFF, TROPHS, GFR, BMP, MDW, CBC, PBNP, ANEU #### [address] [address] Basophils/100 WBC (Bld) 1.1 % Normal 0.0-2.5 A [facility] ([place]) Comment on above: Performed By: #### A DIFF, TROPHS, GFR, BMP, MDW, CBC, PBNP, ANEU #### [address] [address] Eosinophil, Absolute 0.1 10 3/mcL Normal 0.0-0.4 [facility] ([place]) Comment on above: Performed By: #### A DIFF, TROPHS, GFR, BMP, MDW, CBC, PBNP, ANEU #### [address] [address] Eosinophils/100 WBC (Bld) 0.7 % Normal 0.0-7.0 [facility] ([place]) Comment on above: Performed By: #### A DIFF, TROPHS, GFR, BMP, MDW, CBC, PBNP, ANEU #### [address] [address] Lymphocyte, Absolute 2.8 10 3/mcL Normal 0.8-3.9 [facility] ([place]) Comment on above: Performed By: #### A DIFF, TROPHS, GFR, BMP, MDW, CBC, PBNP, ANEU #### [address] [address] Lymphocytes/100 WBC (Bld) 20.2 % Normal 10.0-50.0 [facility] ([place]) Comment on above: Performed By: #### A DIFF, TROPHS, GFR, BMP, MDW, CBC, PBNP, ANEU #### [address] [address] Monocyte, Absolute 1.7 10 3/mcL High 0.2-1.0 [facility] ([place]) Comment on above: Performed By: #### A DIFF, TROPHS, GFR, BMP, MDW, CBC, PBNP, ANEU #### [address] [address] Monocytes/100 WBC (Bld) 12.2 % Normal 1.7-13.0 [facility] ([place]) Comment on above: Performed By: #### A DIFF, TROPHS, GFR, BMP, MDW, CBC, PBNP, ANEU #### [address] [address] Neutrophils/100 WBC (Bld) 65.8 % Normal 37.0-80.0 [facility] ([place]) Comment on above: Performed By: #### A DIFF, TROPHS, GFR, BMP, MDW, CBC, PBNP, ANEU #### [address] [address] .GFRon 01-30-2024 GFR 38 ml/min/1.73sqm Normal [facility] ([place]) Comment on above: Result Comment: GFR Population [...] BMP, MDW, CBC, PBNP, ANEU #### [address] [address] GFR Non- 31 ml/min/1.73sqm [facility] ([place]) Comment on above: Result Comment: GFR Population [...] GFR, BMP, MDW, CBC, PBNP, ANEU #### [place] [address] .MDWon 01-30-2024 Monocyte Distribution Width 21.35 High 0.00-20.00 [facility] ([place]) Comment on above: Result Comment: For adults in ED, MDW>20.0 may be associated with a higher risk of sepsis during the first 12hrs of hospital admission Performed By: #### A DIFF, TROPHS, GFR, BMP, MDW, CBC, PBNP, ANEU #### [place] [address] .NEUABSon 01-30-2024 Neutrophil, Absolute 9.2 10 3/mcL High 2.9-6.2 [facility] ([place]) Comment on above: Performed By: #### A DIFF, TROPHS, GFR, BMP, MDW, CBC, PBNP, ANEU #### [place] [address] .Urinalysis Microscopic (AO) on 01-30-2024 UA RBC None Seen Normal None Seen [facility] ([place]) Comment on above: Performed By: #### A DIFF, TROPHS, GFR, BMP, MDW, CBC, PBNP, ANEU #### [place] [address] UA Squam Epithelial None Seen Normal None Seen [facility] ([place]) Comment on above: Performed By: #### A DIFF, TROPHS, GFR, BMP, MDW, CBC, PBNP, ANEU #### [place] [address] UA WBC 0-5 Abnormal None Seen [facility] ([place]) Comment on above: Performed By: #### A DIFF, TROPHS, GFR, BMP, MDW, CBC, PBNP, ANEU #### [place] [address] BGon 01-30-2024 Base excess Calc (Bld) [Moles/Vol] 4.3 mmol/L Normal [facility] ([place]) Comment on above: Performed By: #### A DIFF, TROPHS, GFR, BMP, MDW, CBC, PBNP, ANEU #### [address] [address] CO2 [Moles/Vol] 29.8 mmol/L Normal 22.0-30.0 [facility] ([place]) Comment on above: Performed By: #### A DIFF, TROPHS, GFR, BMP, MDW, CBC, PBNP, ANEU #### [address] [address] HCO3 (Bld) [Moles/Vol] 28.5 mmol/L Normal 21.0-29.0 [facility] ([place]) Comment on above: Performed By: #### A DIFF, TROPHS, GFR, BMP, MDW, CBC, PBNP, ANEU #### [address] [address] Oxygen (Bld) [Partial pressure] 51.0 mm[Hg] Low 74.0-108.0 [facility] ([place]) Comment on above: Performed By: #### A DIFF, TROPHS, GFR, BMP, MDW, CBC, PBNP, ANEU #### [address] [address] Oxygen saturation in Blood 88.8 % Low 92.0-96.0 [facility] ([place]) Comment on above: Performed By: #### A DIFF, TROPHS, GFR, BMP, MDW, CBC, PBNP, ANEU #### [address] [address] pCO2 41.0 mmHg Normal 32.0-46.0 [facility] ([place]) Comment on above: Performed By: #### A DIFF, TROPHS, GFR, BMP, MDW, CBC, PBNP, ANEU #### [address] [address] pH (Bld) 7.460 [pH] Normal 7.380-7.460 [facility] ([place]) Comment on above: Performed By: #### A DIFF, TROPHS, GFR, BMP, MDW, CBC, PBNP, ANEU #### [address] [address] BMPon 01-30-2024 BUN/Creatinine Ratio 8 ratio Normal 7-27 [facility] ([place]) Comment on above: Performed By: #### A DIFF, TROPHS, GFR, BMP, MDW, CBC, PBNP, ANEU #### [address] [address] Calcium [Mass/Vol] 8.8 mg/dL Normal 8.4-10.2 [facility] ([place]) Comment on above: Performed By: #### A DIFF, TROPHS, GFR, BMP, MDW, CBC, PBNP, ANEU #### [address] [address] Chloride [Moles/Vol] 97 mmol/L Low 98-107 [facility] ([place]) Comment on above: Performed By: #### A DIFF, TROPHS, GFR, BMP, MDW, CBC, PBNP, ANEU #### [address] [address] CO2 [Moles/Vol] 31 mmol/L High 22-29 [facility] ([place]) Comment on above: Performed By: #### A DIFF, TROPHS, GFR, BMP, MDW, CBC, PBNP, ANEU #### [address] [address] Creatinine [Mass/Vol] 2.22 mg/dL High 0.70-1.30 [facility] ([place]) Comment on above: Result Comment: Test ing performed on Siemens Dimension EXL analyzer using a modified kinetic Ciera technique. Performed By: #### A DIFF, TROPHS, GFR, BMP, MDW, CBC, PBNP, ANEU #### [address] [address] Electrolyte Balance 6.0 mEq/L Normal 4.0-15.0 [facility] ([place]) Comment on above: Performed By: #### A DIFF, TROPHS, GFR, BMP, MDW, CBC, PBNP, ANEU #### [address] [address] Glucose [Mass/Vol] 112 mg/dL High 70-105 [facility] ([place]) Comment on above: Performed By: #### A DIFF, TROPHS, GFR, BMP, MDW, CBC, PBNP, ANEU #### [address] [address] Potassium [Moles/Vol] 3.7 mmol/L Normal 3.5-5.1 [facility] ([place]) Comment on above: Performed By: #### A DIFF, TROPHS, GFR, BMP, MDW, CBC, PBNP, ANEU #### [address] [address] Sodium [Moles/Vol] 134 mmol/L Low 136-145 [facility] ([place]) Comment on above: Performed By: #### A DIFF, TROPHS, GFR, BMP, MDW, CBC, PBNP, ANEU #### [address] [address] Urea nitrogen [Mass/Vol] 17 mg/dL Normal 7-18 [facility] ([place]) Comment on above: Performed By: #### A DIFF, TROPHS, GFR, BMP, MDW, CBC, PBNP, ANEU #### [address] [address] CBCon 01-30-2024 Erythrocyte distribution width (RBC) [Ratio] 16.5 % High 11.5-14.5 [facility] ([place]) Comment on above: Performed By: #### A DIFF, TROPHS, GFR, BMP, MDW, CBC, PBNP, ANEU #### [address] [address] Hematocrit (Bld) [Volume fraction] 45.3 % Normal 42.0-52.0 [facility] ([place]) Comment on above: Performed By: #### A DIFF, TROPHS, GFR, BMP, MDW, CBC, PBNP, ANEU #### [address] [address] Hgb 14.9 G/dL Normal 14.0-18.0 [facility] ([place]) Comment on above: Performed By: #### A DIFF, TROPHS, GFR, BMP, MDW, CBC, PBNP, ANEU #### [address] [address] MCH (RBC) [Entitic mass] 26.6 pg Low 27.0-31.2 [facility] ([place]) Comment on above: Performed By: #### A DIFF, TROPHS, GFR, BMP, MDW, CBC, PBNP, ANEU #### [address] [address] MCHC 33.0 G/dL Normal 31.8-35.4 [facility] ([place]) Comment on above: Performed By: #### A DIFF, TROPHS, GFR, BMP, MDW, CBC, PBNP, ANEU #### [address] [address] MCV (RBC) [Entitic vol] 80.7 fL Normal 80.0-94.0 A [facility] ([place]) Comment on above: Performed By: #### A DIFF, TROPHS, GFR, BMP, MDW, CBC, PBNP, ANEU #### [address] [address] Platelet 263 10 3/mcL Normal 130-400 [facility] ([place]) Comment on above: Performed By: #### A DIFF, TROPHS, GFR, BMP, MDW, CBC, PBNP, ANEU #### [address] [address] Platelet mean volume (Bld) [Entitic vol] 6.8 fL Low 7.4-10.4 [facility] ([place]) Comment on above: Performed By: #### A DIFF, TROPHS, GFR, BMP, MDW, CBC, PBNP, ANEU #### [address] [address] RBC 5.61 10 6/mcL Normal 4.04-6.13 [facility] ([place]) Comment on above: Performed By: #### A DIFF, TROPHS, GFR, BMP, MDW, CBC, PBNP, ANEU #### [address] [address] WBC 14.0 10 3/mcL High 4.6-10.8 [facility] ([place]) Comment on above: Performed By: #### A DIFF, TROPHS, GFR, BMP, MDW, CBC, PBNP, ANEU #### [place] [address] [place], [place] [address] CT HEAD OR BRAIN W/O CONTRAS Ton [...] PM Ordering Provider: SAMY Kate [facility] ([place]) LABORATORYOrdered By: Jil Morales on 01-30-2024 Appearance [...] ng/L Male: 0-76 ng/L Testing performed on [employer] using a homogeneous sandwich chemiluminescent immunoassay based on [employer] technology. Lactate [Moles/Vol] 1.0 mmol/L Normal 0.4 [...] ng/L Male: 0-76 ng/L Testing performed on [employer] using a homogeneous sandwich chemiluminescent immunoassay based on [employer] technology. Urea nitrogen [Mass/Vol] 17 mg/dL Normal [...] Lactic Acid Lvl 1.0 mmol/L Normal 0.4-2.0 [facility] ([place]) Comment on above: Performed By: #### L AC #### [address] [address] No Panel Informationon 01-29 Microscopic examination of blood, culture Culture has been received in lab and is no growth to date. Routine cultures are held for 5 days. [facility] PBNPon 01-30-2024 Natriuretic peptide B (Bld) [Mass/Vol] 1822 pg/mL High 0-125 [facility] ([place]) Comment on above: Result Comment: NT-p roBNP results of less than 300 pg/mL effectively rules out acute congestive heart failure with 99% negative predictive value. Performed By: #### A DIFF, TROPHS, GFR, BMP, MDW, CBC, PBNP, ANEU #### [address] [address] TROPHSon 01-30-2024 High Sensitivity Troponin I 7 ng/L Normal 0-76 [facility] ([place]) Comment on above: Result Comment: High Sensitive Troponin I Reference Ranges: Female: 0-51 ng/L Male: 0-76 ng/L Testing performed on Dimension EXL using a homogeneous sandwich chemiluminescent immunoassay based on [employer] technology. Performed By: #### A DIFF, TROPHS, GFR, BMP, MDW, CBC, PBNP, ANEU #### [address] [address] High Sensitivity Troponin I 8 ng/L Normal 0-76 [facility] ([place]) Comment on above: Result Comment: High Sensitive Troponin I Reference Ranges: Female: 0-51 ng/L Male: 0-76 ng/L Testing performed on [employer] EXL using a homogeneous sandwich chemiluminescent immunoassay based on [employer] technology. Performed By: #### A DIFF, TROPHS, GFR, BMP, MDW, CBC, PBNP, ANEU #### [address] [address] UAon 01-30-2024 Color (U) Yellow Normal [facility] ([place]) Comment on above: Performed By: #### A DIFF, TROPHS, GFR, BMP, MDW, CBC, PBNP, ANEU #### [address] [address] Glucose (U) [Mass/Vol] Negative Normal Negative [facility] ([place]) Comment on above: Performed By: #### A DIFF, TROPHS, GFR, BMP, MDW, CBC, PBNP, ANEU #### [address] [address] Ketones Ql (U) Negative Normal Negative Count includes the [facility] ([place]) Comment on above: Performed By: #### A DIFF, TROPHS, GFR, BMP, MDW, CBC, PBNP, ANEU #### [address] [address] UA Appear Clear Normal Clear [facility] ([place]) Comment on above: Performed By: #### A DIFF, TROPHS, GFR, BMP, MDW, CBC, PBNP, ANEU #### [address] [address] UA Bili Small Abnormal Negative [facility] ([place]) Comment on above: Performed By: #### A DIFF, TROPHS, GFR, BMP, MDW, CBC, PBNP, ANEU #### [address] [address] UA Blood Trace Abnormal Negative [facility] ([place]) Comment on above: Performed By: #### A DIFF, TROPHS, GFR, BMP, MDW, CBC, PBNP, ANEU #### [address] [address] UA Leuk Est Trace Abnormal Negative [facility] ([place]) Comment on above: Performed By: #### A DIFF, TROPHS, GFR, BMP, MDW, CBC, PBNP, ANEU #### [address] [address] UA Nitrite Negative Normal Negative [facility] ([place]) Comment on above: Performed By: #### A DIFF, TROPHS, GFR, BMP, MDW, CBC, PBNP, ANEU #### [address] [address] UA pH 6.0 Normal 5.0 - 8.0 [facility] ([place]) Comment on above: Performed By: #### A DIFF, TROPHS, GFR, BMP, MDW, CBC, PBNP, ANEU #### [address] [address] UA Protein 100 mg/dL Abnormal Negative [facility] ([place]) Comment on above: Performed By: #### A DIFF, TROPHS, GFR, BMP, MDW, CBC, PBNP, ANEU #### [address] [address] UA Spec Grav 1.025 Normal 1.015-1.025 [facility] ([place]) Comment on above: Performed By: #### A DIFF, TROPHS, GFR, BMP, MDW, CBC, PBNP, ANEU #### [address] [address] UA Specimen Type Void Normal [facility] ([place]) Comment on above: Performed By: #### A DIFF, TROPHS, GFR, BMP, MDW, CBC, PBNP, ANEU #### [address] [address] UA Urobilinogen 1.0 E.U./dL Normal 0.2-1.0 [facility] ([place]) Comment on above: Performed By: #### A DIFF, TROPHS, GFR, BMP, MDW, CBC, PBNP, ANEU #### [address] [address] XR CHEST 1 VIEWon 01-30-2024 XR CHEST [...] 01/30/2024 9:28:12 PM Ordering Provider: SAMY JONES [facility] ([place]) .GFRon 08-08-2023 GFR Non- 105 ml/min/1.73sqm [facility] ([place]) Comment on above: Result Comment: GFR Population [...] BMP, MDW, CBC, PBNP, ANEU #### [address] [address] GFR 127 ml/min/1.73sqm [facility] ([place]) Comment on above: Result Comment: GFR Population [...] BMP, MDW, CBC, PBNP, ANEU #### [address] [address] A1Con 08-08-2023 HbA1c (Bld) [Mass fraction] 6.7 % High 4.3-6.4 [facility] ([place]) Comment on above: Performed By: #### A DIFF, TROPHS, GFR, BMP, MDW, CBC, PBNP, ANEU #### [address] [address] CMPon 08-08-2023 Albumin Level 3.4 G/dL Low 3.5-5.0 [facility] ([place]) Comment on above: Performed By: #### A DIFF, TROPHS, GFR, BMP, MDW, CBC, PBNP, ANEU #### [address] [address] Albumin/Globulin [Mass ratio] 0.9 {ratio} Low 1.1-2.5 [facility] ([place]) Comment on above: Performed By: #### A DIFF, TROPHS, GFR, BMP, MDW, CBC, PBNP, ANEU #### [address] [address] ALP [Catalytic activity/Vol] 87 U/L Normal 40-135 [facility] ([place]) Comment on above: Performed By: #### A DIFF, TROPHS, GFR, BMP, MDW, CBC, PBNP, ANEU #### [address] [address] ALT [Catalytic activity/Vol] 19 U/L Normal 16-63 [facility] ([place]) Comment on above: Performed By: #### A DIFF, TROPHS, GFR, BMP, MDW, CBC, PBNP, ANEU #### [address] [address] AST [Catalytic activity/Vol] 15 U/L Normal 10-40 [facility] ([place]) Comment on above: Performed By: #### A DIFF, TROPHS, GFR, BMP, MDW, CBC, PBNP, ANEU #### [address] [address] Bili Total 0.5 mg/dL Normal 0.2-1.0 [facility] ([place]) Comment on above: Result Comment: Use of this assay is not recommended for patients undergoing treatment with eltrombopag due to the potential for falsely elevated results. Performed By: #### A DIFF, TROPHS, GFR, BMP, MDW, CBC, PBNP, ANEU #### [address] [address] BUN/Creatinine Ratio 14 ratio Normal 7-27 [facility] ([place]) Comment on above: Performed By: #### A DIFF, TROPHS, GFR, BMP, MDW, CBC, PBNP, ANEU #### [address] [address] Calcium [Mass/Vol] 8.7 mg/dL Normal 8.4-10.2 [facility] ([place]) Comment on above: Performed By: #### A DIFF, TROPHS, GFR, BMP, MDW, CBC, PBNP, ANEU #### [address] [address] Chloride [Moles/Vol] 100 mmol/L Normal 98-107 [facility] ([place]) Comment on above: Performed By: #### A DIFF, TROPHS, GFR, BMP, MDW, CBC, PBNP, ANEU #### [address] [address] CO2 [Moles/Vol] 34 mmol/L High 22-29 [facility] ([place]) Comment on above: Performed By: #### A DIFF, TROPHS, GFR, BMP, MDW, CBC, PBNP, ANEU #### [address] [address] Creatinine [Mass/Vol] 0.78 mg/dL Normal 0.70-1.30 [facility] ([place]) Comment on above: Performed By: #### A DIFF, TROPHS, GFR, BMP, MDW, CBC, PBNP, ANEU #### [address] [address] Electrolyte Balance 6.0 mEq/L Normal 4.0-15.0 [facility] ([place]) Comment on above: Performed By: #### A DIFF, TROPHS, GFR, BMP, MDW, CBC, PBNP, ANEU #### [address] [address] Globulin 3.8 G/dL Normal [facility] ([place]) Comment on above: Performed By: #### A DIFF, TROPHS, GFR, BMP, MDW, CBC, PBNP, ANEU #### [address] [address] Glucose [Mass/Vol] 121 mg/dL High 70-105 [facility] ([place]) Comment on above: Performed By: #### A DIFF, TROPHS, GFR, BMP, MDW, CBC, PBNP, ANEU #### [address] [address] Potassium [Moles/Vol] 4.2 mmol/L Normal 3.5-5.1 [facility] ([place]) Comment on above: Performed By: #### A DIFF, TROPHS, GFR, BMP, MDW, CBC, PBNP, ANEU #### [address] [address] Sodium [Moles/Vol] 140 mmol/L Normal 136-145 [facility] ([place]) Comment on above: Performed By: #### A DIFF, TROPHS, GFR, BMP, MDW, CBC, PBNP, ANEU #### [address] [address] Total Protein 7.2 G/dL Normal 6.4-8.2 [facility] ([place]) Comment on above: Performed By: #### A DIFF, TROPHS, GFR, BMP, MDW, CBC, PBNP, ANEU #### [address] [address] Urea nitrogen [Mass/Vol] 11 mg/dL Normal 7-18 [facility] ([place]) Comment on above: Performed By: #### A DIFF, TROPHS, GFR, BMP, MDW, CBC, PBNP, ANEU #### [place] [id number] LABORATORYOrdered By: Jr Fontaine on 08-08-2023 Albumin DL <= 20 mg/L (U) [Mass/Vol] 378 mcg/dL Invalid Interpretation Code AO ADM SS Albumin/Creatinine DL <= 20 mg/L (U) [Mass ratio] 12 mcg/mg Normal 0 - 30 mcg/mg AO ADM SS Creatinine (U) [Mass/Vol] 30.5 mg/dL Low 39.0 - 259.0 mg/dL AO ADM SS LIPIDon 08-08-2023 Cholesterol [Mass/Vol] 156 mg/dL Normal 0-200 [facility] ([place]) Comment on above: Result Comment: Chol esterol Reference Interval: Less than 200 Desirable 200-239 Borderline high risk 240 and above High risk Performed By: #### A DIFF, TROPHS, GFR, BMP, MDW, CBC, PBNP, ANEU #### [place] [address] Cholesterol in HDL [Mass/Vol] 28 mg/dL Low 40-60 [facility] ([place]) Comment on above: Performed By: #### A DIFF, TROPHS, GFR, BMP, MDW, CBC, PBNP, ANEU #### [place] [address] Cholesterol in LDL [Mass/Vol] 93 mg/dL Normal 0-130 [facility] ([place]) Comment on above: Performed By: #### A DIFF, TROPHS, GFR, BMP, MDW, CBC, PBNP, ANEU #### [address] [address] Triglyceride [Mass/Vol] 175 mg/dL High 0-150 [facility] ([place]) Comment on above: Result Comment: Trig lyceride Reference Interval: Less than 150 Normal 150-199 Borderline high risk 200-499 High risk 500 or higher Very high risk Performed By: #### A DIFF, TROPHS, GFR, BMP, MDW, CBC, PBNP, ANEU #### [address] [address] MALBRon 08-08-2023 U Creatinine 30.5 mg/dL Low 39.0-259.0 [facility] ([place]) Comment on above: Performed By: #### A DIFF, TROPHS, GFR, BMP, MDW, CBC, PBNP, ANEU #### [address] [address] U Microalb 378 mcg/dL Normal [facility] ([place]) Comment on above: Performed By: #### A DIFF, TROPHS, GFR, BMP, MDW, CBC, PBNP, ANEU #### [address] [address] U Ratio Alb/Cre 12 mcg/mg Normal 0-30 [facility] ([place]) Comment on above: Performed By: #### A DIFF, TROPHS, GFR, BMP, MDW, CBC, PBNP, ANEU #### [place] [address] CVFLURVon 06-13-2023 FLU A PCR Negative Normal Negative [facility] ([place]) Comment on above: Performed By: #### A DIFF, TROPHS, GFR, BMP, MDW, CBC, PBNP, ANEU #### [address] [address] FLU B PCR Negative Normal Negative [facility] ([place]) Comment on above: Performed By: #### A DIFF, TROPHS, GFR, BMP, MDW, CBC, PBNP, ANEU #### [address] [address] RSV PCR Negative Normal Negative [facility] ([place]) Comment on above: Performed By: #### A DIFF, TROPHS, GFR, BMP, MDW, CBC, PBNP, ANEU #### [place] [address] SARS-CoV-2 (COVID-19) RNA ROSE+probe Ql (Unsp spec) Negative Normal Negative [facility] ([place]) Comment on above: Result Comment: This test [...] BMP, MDW, CBC, PBNP, ANEU #### [place] [address] LABORATORYOrdered By: Giovana Fischer on 06-13-2023 FLUAV [...] 06/13/2023 12:39:50 AM Ordering Provider: DEMI Kate [facility] ([place]) .Auto Diffon 06-09-2023 Basophil, Absolute 0.1 10 3/mcL Normal 0.0-0.3 [facility]) Comment on above: Performed By: #### A DIFF, TROPHS, GFR, BMP, MDW, CBC, PBNP, ANEU #### [address] [address] Basophils/100 WBC (Bld) 0.8 % Normal 0.0-2.5 [facility] ([place]) Comment on above: Performed By: #### A DIFF, TROPHS, GFR, BMP, MDW, CBC, PBNP, ANEU #### [address] [address] Eosinophil, Absolute 0.1 10 3/mcL Normal 0.0-0.7 [facility] ([place]) Comment on above: Performed By: #### A DIFF, TROPHS, GFR, BMP, MDW, CBC, PBNP, ANEU #### [address] [address] Eosinophils/100 WBC (Bld) 2.0 % Normal 0.0-6.0 [facility] ([place]) Comment on above: Performed By: #### A DIFF, TROPHS, GFR, BMP, MDW, CBC, PBNP, ANEU #### [address] [address] Lymphocyte, Absolute 1.0 10 3/mcL Normal 0.9-4.3 [facility] ([place]) Comment on above: Performed By: #### A DIFF, TROPHS, GFR, BMP, MDW, CBC, PBNP, ANEU #### [address] [address] Lymphocytes/100 WBC (Bld) 15.5 % Low 20.0-40.0 [facility] ([place]) Comment on above: Performed By: #### A DIFF, TROPHS, GFR, BMP, MDW, CBC, PBNP, ANEU #### [address] [address] Monocyte, Absolute 0.7 10 3/mcL Normal 0.1-1.4 [facility] ([place]) Comment on above: Performed By: #### A DIFF, TROPHS, GFR, BMP, MDW, CBC, PBNP, ANEU #### [address] [address] Monocytes/100 WBC (Bld) 11.1 % Normal 2.0-13.0 [facility] ([place]) Comment on above: Performed By: #### A DIFF, TROPHS, GFR, BMP, MDW, CBC, PBNP, ANEU #### [address] [address] Neutrophils/100 WBC (Bld) 70.6 % Normal 50.0-75.0 [facility] ([place]) Comment on above: Performed By: #### A DIFF, TROPHS, GFR, BMP, MDW, CBC, PBNP, ANEU #### [address] [address] .GFRon 06-09-2023 GFR Non- >60 Normal [facility] ([place]) Comment on above: Result Comment: GFR Population [...] BMP, MDW, CBC, PBNP, ANEU #### [address] [address] GFR >60 Normal [facility] ([place]) Comment on above: Result Comment: GFR Population [...] BMP, MDW, CBC, PBNP, ANEU #### [address] [address] .NEUABSon 06-09-2023 Neutrophil, Absolute 4.7 10 3/mcL Normal 2.3-8.1 [facility] ([place]) Comment on above: Performed By: #### A DIFF, TROPHS, GFR, BMP, MDW, CBC, PBNP, ANEU #### [address] [address] BMPon 06-09-2023 BUN/Creatinine Ratio 11.8 ratio Normal 10.0-22.0 [facility] ([place]) Comment on above: Performed By: #### A DIFF, TROPHS, GFR, BMP, MDW, CBC, PBNP, ANEU #### [address] [address] Calcium [Mass/Vol] 9.0 mg/dL Normal 8.7-10.4 [facility] ([place]) Comment on above: Performed By: #### A DIFF, TROPHS, GFR, BMP, MDW, CBC, PBNP, ANEU #### [address] [address] Chloride [Moles/Vol] 102 mmol/L Normal 98-110 [facility] ([place]) Comment on above: Performed By: #### A DIFF, TROPHS, GFR, BMP, MDW, CBC, PBNP, ANEU #### [address] [address] CO2 [Moles/Vol] 35 mmol/L High 22-32 [facility] ([place]) Comment on above: Performed By: #### A DIFF, TROPHS, GFR, BMP, MDW, CBC, PBNP, ANEU #### [address] [address] Creatinine [Mass/Vol] 0.85 mg/dL Normal 0.60-1.40 [facility] ([place]) Comment on above: Performed By: #### A DIFF, TROPHS, GFR, BMP, MDW, CBC, PBNP, ANEU #### [address] [address] Electrolyte Balance 0.0 mEq/L Low 4.0-15.0 [facility] ([place]) Comment on above: Performed By: #### A DIFF, TROPHS, GFR, BMP, MDW, CBC, PBNP, ANEU #### [address] [address] Glucose [Mass/Vol] 146 mg/dL High 70-110 [facility] ([place]) Comment on above: Performed By: #### A DIFF, TROPHS, GFR, BMP, MDW, CBC, PBNP, ANEU #### [address] [address] Potassium [Moles/Vol] 4.8 mmol/L Normal 3.5-5.0 [facility] ([place]) Comment on above: Performed By: #### A DIFF, TROPHS, GFR, BMP, MDW, CBC, PBNP, ANEU #### [address] [address] Sodium [Moles/Vol] 137 mmol/L Normal 136-145 [facility] ([place]) Comment on above: Performed By: #### A DIFF, TROPHS, GFR, BMP, MDW, CBC, PBNP, ANEU #### [address] [address] Urea nitrogen [Mass/Vol] 10.0 mg/dL Normal 8.0-22.0 [facility] ([place]) Comment on above: Result Comment: Spec imen hemolyzed. Results may be falsely elevated. Performed By: #### A DIFF, TROPHS, GFR, BMP, MDW, CBC, PBNP, ANEU #### [address] [address] CBCon 06-09-2023 Erythrocyte distribution width (RBC) [Ratio] 13.3 % Normal 11.5-15.5 [facility] ([place]) Comment on above: Performed By: #### A DIFF, TROPHS, GFR, BMP, MDW, CBC, PBNP, ANEU #### [address] [address] Hematocrit (Bld) [Volume fraction] 45.9 % Normal 40.0-52.0 [facility] ([place]) Comment on above: Performed By: #### A DIFF, TROPHS, GFR, BMP, MDW, CBC, PBNP, ANEU #### [address] [address] Hgb 15.6 G/dL Normal 13.0-17.5 [facility] ([place]) Comment on above: Performed By: #### A DIFF, TROPHS, GFR, BMP, MDW, CBC, PBNP, ANEU #### [place] [address] MCH (RBC) [Entitic mass] 29.0 pg Normal 27.0-33.0 [facility] ([place]) Comment on above: Performed By: #### A DIFF, TROPHS, GFR, BMP, MDW, CBC, PBNP, ANEU #### [place] [address] MCHC 33.9 G/dL Normal 32.0-36.0 [facility] ([place]) Comment on above: Performed By: #### A DIFF, TROPHS, GFR, BMP, MDW, CBC, PBNP, ANEU #### [place] [address] MCV (RBC) [Entitic vol] 85.5 fL Normal 81.0-100.0 [facility] ([place]) Comment on above: Performed By: #### A DIFF, TROPHS, GFR, BMP, MDW, CBC, PBNP, ANEU #### [address] [address] Platelet 174 10 3/mcL Normal 150-450 [facility] ([place]) Comment on above: Performed By: #### A DIFF, TROPHS, GFR, BMP, MDW, CBC, PBNP, ANEU #### [address] [address] Platelet mean volume (Bld) [Entitic vol] 7.5 fL Normal 6.4-10.5 [facility] ([place]) Comment on above: Performed By: #### A DIFF, TROPHS, GFR, BMP, MDW, CBC, PBNP, ANEU #### [address] [address] RBC 5.37 10 6/mcL Normal 4.50-6.00 [facility] ([place]) Comment on above: Performed By: #### A DIFF, TROPHS, GFR, BMP, MDW, CBC, PBNP, ANEU #### [facility] [address] [place], [place] [address] WBC 6.6 10 3/mcL Normal 4.5-10.8 [facility] ([place]) Comment on above: Performed By: #### A DIFF, TROPHS, GFR, BMP, MDW, CBC, PBNP, ANEU #### [facility] [address] [place], [place] [address] LABORATORYOrdered By: Adenike Swain on 06-09-2023 Blood Glucose Testing Reason Routine (06/09/23 4:18 PM) [facility] Glucose [Mass/Vol] 114 mg/dL High 70 - 110 mg/dL [facility] LABORATORYOrdered By: Cris Jang on 06-09-2023 Blood Glucose Testing Reason Routine (06/09/23 7:51 AM) [facility] Glucose [Mass/Vol] 142 mg/dL High 70 - 110 mg/dL [facility] LABORATORYOrdered By: [employer] on 06-09-2023 Basophils (Bld) [#/Vol] 0.1 103/mcL Normal 0.0 - 0.3 10^3/mcL AH Workflow SS Basophils/100 WBC (Bld) 0.8 % Normal 0.0 - 2.5 % Workflow SS Calcium [Mass/Vol] 9.0 mg/dL Normal [...] 103/mcL Normal 0.0 - 0.7 10^3/mcL Workflow Eosinophils/100 WBC (Bld) 2.0 % Normal 0.0 - 6.0 % Workflow Erythrocyte distribution width (RBC) [Ratio] 13.3 % Normal 11.5 - 15.5 % Workflow GFR/1.73 sq M.predicted among blacks MDRD (S/P/Bld) [Vol rate/Area] ml/min/1.73sqm Invalid Interpretation Code [facility] Comment on above: Interpretive Data: GFR [...] (S/P/Bld) [Vol rate/Area] ml/min/1.73sqm Invalid Interpretation Code [facility] Comment on above: Interpretive Data: GFR [...] 45.9 % Normal 40.0 - 52.0 % Workflow SS Hemoglobin (Bld) [Mass/Vol] 15.6 G/dL Normal 13.0 - 17.5 G/dL Workflow SS Lymphocytes (Bld) [#/Vol] 1.0 103/mcL Normal 0.9 - 4.3 10^3/mcL Workflow SS Lymphocytes/100 WBC (Bld) 15.5 % Low 20.0 - 40.0 % Workflow SS Magnesium [Mass/Vol] 2.1 mg/dL Normal 1.6 - 2 .4 mg/dL ADM SS MCH (RBC) [Entitic mass] 29.0 pg Normal 27.0 - 33.0 pg Workflow SS MCHC 33.9 G/dL Normal 32.0 - 36.0 G/dL Workflow SS MCV (RBC) [Entitic vol] 85.5 fL Normal 81.0 - 100.0 fL Workflow SS Monocytes (Bld) [#/Vol] 0.7 103/mcL Normal 0.1 - 1.4 10^3/mcL Workflow SS Monocytes/100 WBC (Bld) 11.1 % Normal 2.0 - 13.0 % Workflow SS Neutrophils (Bld) [#/Vol] 4.7 103/mcL Normal 2.3 - 8.1 10^3/mcL Workflow SS Neutrophils/100 WBC (Bld) 70.6 % Normal 50.0 - 75.0 % Workflow SS Platelet mean volume (Bld) [Entitic vol] 7.5 fL Normal 6.4 - 10.5 fL Workflow SS Platelets (Bld) [#/Vol] 174 103/mcL Normal 150 - 450 10^3/mcL Workflow SS Potassium [Moles/Vol] 4.8 mmol/L Normal [...] 11.8 ratio Normal 10.0 - 22.0 ratio AH ADM SS WBC (Bld) [#/Vol] 6.6 103/mcL Normal 4.5 - 10.8 10^3/mcL AH Workflow SS MGon 06-09-2023 Magnesium [Mass/Vol] 2.1 mg/dL Normal 1.6-2.4 [facility] ([place]) Comment on above: Performed By: #### A DIFF, TROPHS, GFR, BMP, MDW, CBC, PBNP, ANEU #### [address] [address] .Auto Diffon 06-08-2023 Basophil, Absolute 0.1 10 3/mcL Normal 0.0-0.3 [facility] ([place]) Comment on above: Performed By: #### A DIFF, TROPHS, GFR, BMP, MDW, CBC, PBNP, ANEU #### [address] [address] Basophils/100 WBC (Bld) 0.7 % Normal 0.0-2.5 [facility] ([place]) Comment on above: Performed By: #### A DIFF, TROPHS, GFR, BMP, MDW, CBC, PBNP, ANEU #### [address] [address] Eosinophil, Absolute 0.1 10 3/mcL Normal 0.0-0.7 [facility] ([place]) Comment on above: Performed By: #### A DIFF, TROPHS, GFR, BMP, MDW, CBC, PBNP, ANEU #### [address] [address] Eosinophils/100 WBC (Bld) 1.9 % Normal 0.0-6.0 [facility] ([place]) Comment on above: Performed By: #### A DIFF, TROPHS, GFR, BMP, MDW, CBC, PBNP, ANEU #### [address] [address] Lymphocyte, Absolute 1.3 10 3/mcL Normal 0.9-4.3 [facility] ([place]) Comment on above: Performed By: #### A DIFF, TROPHS, GFR, BMP, MDW, CBC, PBNP, ANEU #### [address] [address] Lymphocytes/100 WBC (Bld) 16.1 % Low 20.0-40.0 [facility] ([place]) Comment on above: Performed By: #### A DIFF, TROPHS, GFR, BMP, MDW, CBC, PBNP, ANEU #### [address] [address] Monocyte, Absolute 0.8 10 3/mcL Normal 0.1-1.4 [facility] ([place]) Comment on above: Performed By: #### A DIFF, TROPHS, GFR, BMP, MDW, CBC, PBNP, ANEU #### [address] [address] Monocytes/100 WBC (Bld) 9.9 % Normal 2.0-13.0 [facility] ([place]) Comment on above: Performed By: #### A DIFF, TROPHS, GFR, BMP, MDW, CBC, PBNP, ANEU #### [address] [address] Neutrophils/100 WBC (Bld) 71.4 % Normal 50.0-75.0 [facility] ([place]) Comment on above: Performed By: #### A DIFF, TROPHS, GFR, BMP, MDW, CBC, PBNP, ANEU #### [address] [address] .GFRon 06-08-2023 GFR >60 Normal [facility] ([place]) Comment on above: Result Comment: GFR Population [...] BMP, MDW, CBC, PBNP, ANEU #### [address] [address] GFR Non- >60 Normal [facility] ([place]) Comment on above: Result Comment: GFR Population [...] BMP, MDW, CBC, PBNP, ANEU #### [address] [address] .NEUABSon 06-08-2023 Neutrophil, Absolute 5.7 10 3/mcL Normal 2.3-8.1 [facility] ([place]) Comment on above: Performed By: #### A DIFF, TROPHS, GFR, BMP, MDW, CBC, PBNP, ANEU #### [address] [address] BMPon 06-08-2023 BUN/Creatinine Ratio 10.7 ratio Normal 10.0-22.0 [facility] ([place]) Comment on above: Performed By: #### A DIFF, TROPHS, GFR, BMP, MDW, CBC, PBNP, ANEU #### [address] [address] Calcium [Mass/Vol] 8.9 mg/dL Normal 8.7-10.4 [facility] ([place]) Comment on above: Performed By: #### A DIFF, TROPHS, GFR, BMP, MDW, CBC, PBNP, ANEU #### [address] [address] Chloride [Moles/Vol] 100 mmol/L Normal 98-110 [facility] ([place]) Comment on above: Performed By: #### A DIFF, TROPHS, GFR, BMP, MDW, CBC, PBNP, ANEU #### [address] [address] CO2 [Moles/Vol] 36 mmol/L High 22-32 [facility] ([place]) Comment on above: Performed By: #### A DIFF, TROPHS, GFR, BMP, MDW, CBC, PBNP, ANEU #### [place] [address] Creatinine [Mass/Vol] 0.75 mg/dL Normal 0.60-1.40 [facility] ([place]) Comment on above: Performed By: #### A DIFF, TROPHS, GFR, BMP, MDW, CBC, PBNP, ANEU #### [address] [address] Electrolyte Balance 1.0 mEq/L Low 4.0-15.0 [facility] ([place]) Comment on above: Performed By: #### A DIFF, TROPHS, GFR, BMP, MDW, CBC, PBNP, ANEU #### [address] [address] Glucose [Mass/Vol] 160 mg/dL High 70-110 [facility] ([place]) Comment on above: Performed By: #### A DIFF, TROPHS, GFR, BMP, MDW, CBC, PBNP, ANEU #### [address] [address] Potassium [Moles/Vol] 3.4 mmol/L Low 3.5-5.0 [facility] ([place]) Comment on above: Result Comment: Spec imen slightly hemolyzed. Performed By: #### A DIFF, TROPHS, GFR, BMP, MDW, CBC, PBNP, ANEU #### [address] [address] Sodium [Moles/Vol] 137 mmol/L Normal 136-145 [facility] ([place]) Comment on above: Performed By: #### A DIFF, TROPHS, GFR, BMP, MDW, CBC, PBNP, ANEU #### [address] [address] Urea nitrogen [Mass/Vol] 8.0 mg/dL Normal 8.0-22.0 [facility] ([place]) Comment on above: Performed By: #### A DIFF, TROPHS, GFR, BMP, MDW, CBC, PBNP, ANEU #### [address] [address] CBCon 06-08-2023 Erythrocyte distribution width (RBC) [Ratio] 13.1 % Normal 11.5-15.5 [facility] ([place]) Comment on above: Performed By: #### A DIFF, TROPHS, GFR, BMP, MDW, CBC, PBNP, ANEU #### [address] [address] Hematocrit (Bld) [Volume fraction] 45.7 % Normal 40.0-52.0 [facility] ([place]) Comment on above: Performed By: #### A DIFF, TROPHS, GFR, BMP, MDW, CBC, PBNP, ANEU #### [address] [address] Hgb 15.6 G/dL Normal 13.0-17.5 [facility] ([place]) Comment on above: Performed By: #### A DIFF, TROPHS, GFR, BMP, MDW, CBC, PBNP, ANEU #### [address] [address] MCH (RBC) [Entitic mass] 29.1 pg Normal 27.0-33.0 [facility] ([place]) Comment on above: Performed By: #### A DIFF, TROPHS, GFR, BMP, MDW, CBC, PBNP, ANEU #### [address] [address] MCHC 34.3 G/dL Normal 32.0-36.0 [facility] ([place]) Comment on above: Performed By: #### A DIFF, TROPHS, GFR, BMP, MDW, CBC, PBNP, ANEU #### [address] [address] MCV (RBC) [Entitic vol] 85.0 fL Normal 81.0-100.0 [facility] ([place]) Comment on above: Performed By: #### A DIFF, TROPHS, GFR, BMP, MDW, CBC, PBNP, ANEU #### [address] [address] Platelet 200 10 3/mcL Normal 150-450 [facility] ([place]) Comment on above: Performed By: #### A DIFF, TROPHS, GFR, BMP, MDW, CBC, PBNP, ANEU #### [address] [address] Platelet mean volume (Bld) [Entitic vol] 7.5 fL Normal 6.4-10.5 [facility] ([place]) Comment on above: Performed By: #### A DIFF, TROPHS, GFR, BMP, MDW, CBC, PBNP, ANEU #### [address] [address] RBC 5.37 10 6/mcL Normal 4.50-6.00 [facility] ([place]) Comment on above: Performed By: #### A DIFF, TROPHS, GFR, BMP, MDW, CBC, PBNP, ANEU #### [address] [address] WBC 7.9 10 3/mcL Normal 4.5-10.8 [facility] ([place]) Comment on above: Performed By: #### A DIFF, TROPHS, GFR, BMP, MDW, CBC, PBNP, ANEU #### [address] [address] LABORATORYOrdered By: Adenike Swain on 06-08-2023 Blood Glucose Testing Reason Routine (06/08/23 9:18 PM) [facility] Glucose [Mass/Vol] 173 mg/dL High 70 - 110 mg/dL [facility] LABORATORYOrdered By: SYSTEM SYSTEM on 06-08-2023 [...] 13.1 % Normal 11.5 - 15.5 % AH [...] 0.8 103/mcL Normal 0.1 - 1.4 10^3/mcL Workflow SS Monocytes/100 WBC (Bld) 9.9 % Normal 2.0 - 13.0 % Workflow SS Neutrophils (Bld) [#/Vol] 5.7 103/mcL [...] mg/dL ADM SS Urea nitrogen/Creatinine [Mass ratio] 10.7 ratio Normal 10.0 - 22.0 ratio AH ADM SS WBC (Bld) [#/Vol] 7.9 103/mcL Normal 4.5 - 10.8 10^3/mcL Workflow SS MGon 06-08-2023 Magnesium [Mass/Vol] 2.1 mg/dL Normal 1.6-2.4 [facility] ([place]) Comment on above: Performed By: #### A DIFF, TROPHS, GFR, BMP, MDW, CBC, PBNP, ANEU #### [address] [address] .Auto Diffon 06-07-2023 Basophil, Absolute 0.1 10 3/mcL Normal 0.0-0.3 [facility] ([place]) Comment on above: Performed By: #### A DIFF, TROPHS, GFR, BMP, MDW, CBC, PBNP, ANEU #### [address] [address] Basophils/100 WBC (Bld) 0.6 % Normal 0.0-2.5 [facility] ([place]) Comment on above: Performed By: #### A DIFF, TROPHS, GFR, BMP, MDW, CBC, PBNP, ANEU #### [address] [address] Eosinophil, Absolute 0.2 10 3/mcL Normal 0.0-0.7 [facility] ([place]) Comment on above: Performed By: #### A DIFF, TROPHS, GFR, BMP, MDW, CBC, PBNP, ANEU #### [address] [address] Eosinophils/100 WBC (Bld) 1.6 % Normal 0.0-6.0 [facility] ([place]) Comment on above: Performed By: #### A DIFF, TROPHS, GFR, BMP, MDW, CBC, PBNP, ANEU #### [address] [address] Lymphocyte, Absolute 1.4 10 3/mcL Normal 0.9-4.3 [facility] ([place]) Comment on above: Performed By: #### A DIFF, TROPHS, GFR, BMP, MDW, CBC, PBNP, ANEU #### [address] [address] Lymphocytes/100 WBC (Bld) 14.0 % Low 20.0-40.0 [facility] ([place]) Comment on above: Performed By: #### A DIFF, TROPHS, GFR, BMP, MDW, CBC, PBNP, ANEU #### [address] [address] Monocyte, Absolute 0.6 10 3/mcL Normal 0.1-1.4 [facility] ([place]) Comment on above: Performed By: #### A DIFF, TROPHS, GFR, BMP, MDW, CBC, PBNP, ANEU #### [address] [address] Monocytes/100 WBC (Bld) 6.4 % Normal 2.0-13.0 [facility] ([place]) Comment on above: Performed By: #### A DIFF, TROPHS, GFR, BMP, MDW, CBC, PBNP, ANEU #### [address] [address] Neutrophils/100 WBC (Bld) 77.4 % High 50.0-75.0 [facility] ([place]) Comment on above: Performed By: #### A DIFF, TROPHS, GFR, BMP, MDW, CBC, PBNP, ANEU #### [address] [address] .GFRon 06-07-2023 GFR >60 Normal [facility] ([place]) Comment on above: Result Comment: GFR Population [...] BMP, MDW, CBC, PBNP, ANEU #### [address] [address] GFR Non- >60 Normal [facility] ([place]) Comment on above: Result Comment: GFR Population [...] BMP, MDW, CBC, PBNP, ANEU #### [address] [address] .NEUABSon 06-07-2023 Neutrophil, Absolute 7.7 10 3/mcL Normal 2.3-8.1 [facility] ([place]) Comment on above: Performed By: #### A DIFF, TROPHS, GFR, BMP, MDW, CBC, PBNP, ANEU #### [place] [id number] CBCon 06-07-2023 Erythrocyte distribution width (RBC) [Ratio] 14.0 % Normal 11.5-15.5 [facility] ([place]) Comment on above: Performed By: #### A DIFF, TROPHS, GFR, BMP, MDW, CBC, PBNP, ANEU #### [place] [address] Hematocrit (Bld) [Volume fraction] 47.6 % Normal 40.0-52.0 [facility] ([place]) Comment on above: Performed By: #### A DIFF, TROPHS, GFR, BMP, MDW, CBC, PBNP, ANEU #### [place] [address] Hgb 16.3 G/dL Normal 13.0-17.5 [facility] ([place]) Comment on above: Performed By: #### A DIFF, TROPHS, GFR, BMP, MDW, CBC, PBNP, ANEU #### [place] [address] MCH (RBC) [Entitic mass] 29.1 pg Normal 27.0-33.0 [facility] ([place]) Comment on above: Performed By: #### A DIFF, TROPHS, GFR, BMP, MDW, CBC, PBNP, ANEU #### [place] [address] MCHC 34.2 G/dL Normal 32.0-36.0 [facility] ([place]) Comment on above: Performed By: #### A DIFF, TROPHS, GFR, BMP, MDW, CBC, PBNP, ANEU #### [place] [address] [place], [place] [address] MCV (RBC) [Entitic vol] 84.9 fL Normal 81.0-100.0 [facility] ([place]) Comment on above: Performed By: #### A DIFF, TROPHS, GFR, BMP, MDW, CBC, PBNP, ANEU #### [address] [address] Platelet 228 10 3/mcL Normal 150-450 [facility] ([place]) Comment on above: Performed By: #### A DIFF, TROPHS, GFR, BMP, MDW, CBC, PBNP, ANEU #### [address] [address] Platelet mean volume (Bld) [Entitic vol] 8.0 fL Normal 6.4-10.5 [facility] ([place]) Comment on above: Performed By: #### A DIFF, TROPHS, GFR, BMP, MDW, CBC, PBNP, ANEU #### [address] [address] RBC 5.61 10 6/mcL Normal 4.50-6.00 [facility] ([place]) Comment on above: Performed By: #### A DIFF, TROPHS, GFR, BMP, MDW, CBC, PBNP, ANEU #### [address] [address] WBC 9.9 10 3/mcL Normal 4.5-10.8 [facility] ([place]) Comment on above: Performed By: #### A DIFF, TROPHS, GFR, BMP, MDW, CBC, PBNP, ANEU #### [address] [address] CMPon 06-07-2023 Albumin Level 3.3 G/dL Normal 3.2-4.8 [facility] ([place]) Comment on above: Order Comment: hemol yzed. needs redrawn Performed By: #### A DIFF, TROPHS, GFR, BMP, MDW, CBC, PBNP, ANEU #### [address] [address] Albumin/Globulin [Mass ratio] 0.9 {ratio} Normal 0.9-1.6 [facility] ([place]) Comment on above: Order Comment: hemol yzed. needs redrawn Performed By: #### A DIFF, TROPHS, GFR, BMP, MDW, CBC, PBNP, ANEU #### [address] [address] ALP [Catalytic activity/Vol] 93 U/L Normal 38-126 [facility] ([place]) Comment on above: Order Comment: hemol yzed. needs redrawn Performed By: #### A DIFF, TROPHS, GFR, BMP, MDW, CBC, PBNP, ANEU #### [address] [address] ALT [Catalytic activity/Vol] 13 U/L Normal 12-55 [facility] ([place]) Comment on above: Order Comment: hemol yzed. needs redrawn Performed By: #### A DIFF, TROPHS, GFR, BMP, MDW, CBC, PBNP, ANEU #### [address] [address] AST [Catalytic activity/Vol] 13 U/L Normal 8-34 [facility] ([place]) Comment on above: Order Comment: hemol yzed. needs redrawn Performed By: #### A DIFF, TROPHS, GFR, BMP, MDW, CBC, PBNP, ANEU #### [address] [address] Bili Total 0.30 mg/dL Normal 0.20-1.20 [facility] ([place]) Comment on above: Order Comment: hemol yzed. needs redrawn Result Comment: Use of this assay is not recommended for patients undergoing treatment with eltrombopag due to the potential for falsely elevated results. Performed By: #### A DIFF, TROPHS, GFR, BMP, MDW, CBC, PBNP, ANEU #### [address] [address] BUN/Creatinine Ratio 10.8 ratio Normal 10.0-22.0 [facility] ([place]) Comment on above: Order Comment: hemol yzed. needs redrawn Performed By: #### A DIFF, TROPHS, GFR, BMP, MDW, CBC, PBNP, ANEU #### [address] [address] Calcium [Mass/Vol] 8.8 mg/dL Normal 8.7-10.4 [facility] ([place]) Comment on above: Order Comment: hemol yzed. needs redrawn Performed By: #### A DIFF, TROPHS, GFR, BMP, MDW, CBC, PBNP, ANEU #### [address] [address] Chloride [Moles/Vol] 97 mmol/L Low 98-110 [facility] ([place]) Comment on above: Order Comment: hemol yzed. needs redrawn Performed By: #### A DIFF, TROPHS, GFR, BMP, MDW, CBC, PBNP, ANEU #### [address] [address] CO2 [Moles/Vol] 37 mmol/L High 22-32 [facility] ([place]) Comment on above: Order Comment: hemol yzed. needs redrawn Performed By: #### A DIFF, TROPHS, GFR, BMP, MDW, CBC, PBNP, ANEU #### [address] [address] Creatinine [Mass/Vol] 0.93 mg/dL Normal 0.60-1.40 [facility] ([place]) Comment on above: Order Comment: hemol yzed. needs redrawn Performed By: #### A DIFF, TROPHS, GFR, BMP, MDW, CBC, PBNP, ANEU #### [address] [address] Electrolyte Balance 3.0 mEq/L Low 4.0-15.0 [facility] [place]) Comment on above: Order Comment: hemol yzed. needs redrawn Performed By: #### A DIFF, TROPHS, GFR, BMP, MDW, CBC, PBNP, ANEU #### [address] [address] Globulin 3.6 G/dL Normal 1.5-3.8 [facility] ([place]) Comment on above: Order Comment: hemol yzed. needs redrawn Performed By: #### A DIFF, TROPHS, GFR, BMP, MDW, CBC, PBNP, ANEU #### [address] [address] Glucose [Mass/Vol] 209 mg/dL High 70-110 [facility] ([place]) Comment on above: Order Comment: hemol yzed. needs redrawn Performed By: #### A DIFF, TROPHS, GFR, BMP, MDW, CBC, PBNP, ANEU #### [address] [address] Potassium [Moles/Vol] 3.6 mmol/L Normal 3.5-5.0 [facility] ([place]) Comment on above: Order Comment: hemol yzed. needs redrawn Result Comment: Spec imen slightly hemolyzed. Performed By: #### A DIFF, TROPHS, GFR, BMP, MDW, CBC, PBNP, ANEU #### [address] [address] Sodium [Moles/Vol] 137 mmol/L Normal 136-145 [facility] ([place]) Comment on above: Order Comment: hemol yzed. needs redrawn Performed By: #### A DIFF, TROPHS, GFR, BMP, MDW, CBC, PBNP, ANEU #### [address] [address] Total Protein 6.9 G/dL Normal 5.7-8.2 [facility] ([place]) Comment on above: Order Comment: hemol yzed. needs redrawn Result Comment: No te - New Reference Range in effect 19 Performed By: #### A DIFF, TROPHS, GFR, BMP, MDW, CBC, PBNP, ANEU #### [address] [address] Urea nitrogen [Mass/Vol] 10.0 mg/dL Normal 8.0-22.0 [facility] ([place]) Comment on above: Order Comment: hemol yzed. needs redrawn Performed By: #### A DIFF, TROPHS, GFR, BMP, MDW, CBC, PBNP, ANEU #### [id number] [place], [place] [address] LABORATORYOrdered By: SYSTEM SYSTEM on 06-07-2023 Albumin BCP dye [Mass/Vol] 3.3 G/dL Normal 3.2 - 4.8 G/dL AH ADM SS Albumin/Globulin [Mass ratio] 0.9 {ratio} Normal 0.9 - 1.6 ratio AH ADM SS ALP [Catalytic activity/Vol] 93 U/L Normal 38 - 126 U/L AH [...] 0.93 mg/dL Normal 0.60 - 1.40 mg/dL AH ADM SS Electrolyte Balance 3.0 mEq/L Low [...] [Mass/Vol] 1.7 mg/dL Normal 1.6-2.4 [facility] ([place]) Comment on above: Performed By: #### A DIFF, TROPHS, GFR, BMP, MDW, CBC, PBNP, ANEU #### [place] [id number] [place], [place] [address] XR CHEST 1 VIEWon 05-05-2023 XR CHEST 1 VIEW ORIGINAL EXAMINATION: ONE XRAY VIEW OF THE CHEST 05/05/2023 7:54 pm COMPARISON: 10/27/2022. HISTORY: ORDERING SYSTEM PROVIDED HISTORY: Reason for Exam: Fall yesterday, right rib pain. SOB FINDINGS: Similar appearance to the cardiomediastinal silhouette. No focal consolidation. No large pleural effusion or pneumothorax. Low lung volumes. Bibasilar streaky airspace opacities/atelectasis . Similar appearing vascular markings. 5 mm right [...] Date: 05/05/2023 9:17:04 PM Ordering Provider: DEMI Kate [facility] ([place]) XR RIBS 2 VIEWS RIGHTon XR RIBS [...] Date: 05/05/2023 9:08:30 PM Ordering Provider: DEMI Kate [facility] ([place]) PBNPon 03-22-2023 Natriuretic peptide B (Bld) [Mass/Vol] 378 pg/mL High 0-125 [facility] ([place]) Comment on above: Result Comment: NT-p roBNP results of less than 300 pg/mL effectively rules out acute congestive heart failure with 99% negative predictive value. Performed By: #### A DIFF, TROPHS, GFR, BMP, MDW, CBC, PBNP, ANEU #### [place] [id number] [place], [place] [address] Influenza virus A and B and SARS-CoV-2 (COVID-19) Ag panel - Upper respiratory specimOrdered By: Nguyễn Al on 02-12-2023 SARS-CoV-2 (COVID-19) RNA ROSE+probe Ql (Resp) [facility] LABORATORYOrdered By: SYSTEM SYSTEM on [...] 150 mg/dL AO ADM SS LABORATORYOrdered By: [employer] SYSTEM on 10-27-2022 Albumin BCP dye [Mass/Vol] [...] Auto (Unsp spec) [#/Vol] 1.50 10*3/uL 0.83-4.51 [facility] Basophil percentageOrdered B y: Dr. Brown on 10-23-2022 Basophils/100 WBC (Bld) 0.8 % 0-1 [facility] Chloride [Moles/Vol] 102 mmol/L 98-[address] [facility] Eosinophils/100 WBC (Bld) 2.4 % 0-5 [facility] Glucose [Mass/Vol] 126 mg/dL 74-106 [facility] Comment on above: Fasting Glucose resu lt greater than or equal to 126 mg/dL suggests DIABETES MELLITUS per A.D.A. criteria. Neutrophils (Bld) [#/Vol] 5.4 10*3/uL 2.0-7.7 [facility] Neutrophils/100 WBC (Bld) 67.9 % 47-70 [facility] Potassium [Moles/Vol] 3.2 mmol/L 3.5-5.1 [facility] Sodium [Moles/Vol] 140 mmol/L 136-145 [facility] WBC (Bld) [#/Vol] 7.9 10*3/uL 4.4-11.0 [facility] Blood erythrocytes count (nu mber/volume)Ordered By: Dr. Brown on 10-23-2022 RBC (Bld) [#/Vol] 6.06 10*6/uL 4.6-6.2 [facility] Blood hemoglobin measurement (mass/volume)Ordered By: Dr. Brown on 10-23-2022 Hemoglobin (Bld) [Mass/Vol] 17.2 g/dL 13.0-16.5 [facility] Blood lymphocytes/100 leukoc ytesOrdered By: Dr. Brown on 10-23-2022 Lymphocytes/100 WBC (Bld) 19.0 % 19-41 [facility] Blood monocytes/100 leukocyt esOrdered By: Dr. Brown on 10-23-2022 Monocytes/100 WBC (Bld) 9.6 % 0-10 [facility] Blood platelet mean volumeOr dered By: Dr. Brown on 10-23-2022 Platelet mean volume (Bld) [Entitic vol] 10.3 fL 6.2-12.0 [facility] Determination of erythrocyte mean corpuscular volume (MCV)Ordered By: Dr. Brown on 10-23-2022 MCV (RBC) [Entitic vol] 89.6 fL 80-94 [facility] Hematocrit Auto (Bld) [Volum e fraction]Ordered By: Dr. Brown on 10-23-2022 Hematocrit (Bld) [Volume fraction] 54.3 % 40-54 [facility] Laboratory - Chemistry and C hemistry - challengeOrdered By: Dr. Brown on 10-23-2022 CO2 [Moles/Vol] 32.0 mmol/L 21.0-32.0 [facility] Natriuretic peptide B (Bld) [Mass/Vol] 182.2 pg/mL 0-100 [facility] Urea nitrogen/Creatinine [Mass ratio] 13.0 mg/mg 10-20 [facility] Laboratory - Hematology and Cell countsOrdered By: Dr. Brown on 10-23-2022 Erythrocyte distribution width (RBC) [Entitic vol] 46.1 fL 35.1-43.9 [facility] Erythrocyte distribution width (RBC) [Ratio] 14.1 % 11.6-14.6 [facility] Immature granulocytes/100 WBC (Bld) 0.300 % 0.0-0.9 [facility] Comment on above: IG% - Immature Granu locytes (promyelocytes, myelocytes and metamyelocytes) > 1% indicates that a LEFT SHIFT is Present. MCH (RBC) [Entitic mass] 28.4 pg 27.0-32.0 [facility] Nucleated RBC/100 WBC (Bld) [Ratio] 0 % 0-5 [facility] MCHC Auto (RBC) [Mass/Vol]Or dered By: Dr. Brown on 10-23-2022 MCHC (RBC) [Mass/Vol] 31.7 g/dL 32-36 [facility] No Panel InformationOrdered By: Dr. Brown on 10-23-2022 Troponin I High Sensitivity 14 pg/mL 3.0-78.0 [facility] Comment on above: Please Note: New Faye t Units and Gender Specific Reference Ranges. For more information see Policy Stat Procedure [place] High Sensitivity Troponin (TNIH) and attachments. Estimated Creatinine Clearance Calc 104.04 ml/min [facility] Estimated GFR (MDRD) Amer 123 mL/min >60 [facility] Comment on above: GFR Calc Estimated GFR (MDRD) Non-Af Amer 102 mL/min >60 [facility] Comment on above: Non- GFR Calc Platelets bldOrdered By: Dr. Brown on 10-23-2022 Platelets (Bld) [#/Vol] 234 10*3/uL 150-450 [facility] Serum or plasma calcium scott urement (mass/volume)Ordered By: Dr. Brown on 10-23-2022 Calcium [Mass/Vol] 8.7 mg/dL 8.5-10.1 [facility] Serum or plasma creatinine m easurement (mass/volume)Ordered By: Dr. Brown on 10-23-2022 Creatinine [Mass/Vol] 0.84 mg/dL 0.70-1.30 [facility] Comment on above: The validity of the calculated GFR & GFRAA in patients over 70 years has not been determined. Clinical correlation is essential. Serum or plasma urea nitroge n measurement (mass/volume)Ordered By: Dr. Brown on 10-23-2022 Urea nitrogen [Mass/Vol] 11 mg/dL 7-18 [facility] Thin prep Papanicolaou smear with manual screeningOrdered By: Dr. Brown on 10-23-2022 Thin prep Papanicolaou smear with manual screening 6 -15 [facility] Invasive Cardiology Clinic N oteon 08-24-2021 Invasive Cardiology Clinic Note . [facility] A Division of [facility] Gem Barr M.D., [place] [phone] * Reason for VisitFOLLOW UP CHEST PAIN(1) [...] me to participate in your patient's care. Correctional Substance Abuse Counselor Statement: Transcribed for Dr. Barr by LEWIS , mud mixer. Electronic Signatures: Gem Barr) (Signed 11:31) Authored: Letterhead Option, Reason for Visit, Vital Signs, Allergies/Meds, History of Present Illness, Past Medical, Surgical and Family History, ROS, Physical Exam, Results, Assessment and Plan, Correctional Substance Abuse Counselor Statement Km Phan (Fur Buyer) (Entered 15:30) Entered: Letterhead Option, Reason for Visit, Vital Signs, Allergies/Meds, History of Pr (more content not included)... Normal [employer] Echocardiogram-Completeon Echocardiogram-Complete Study ID: [id number] [facility] [place] [address] Name: CARLOS ALBERTO KELLEYJR Study Date: 08/17/2021 07:55 AM BP: 152/92 mmHg Patient Location: [facility] HR: 84 : 1970 Gender: Male Height: 69 in Age: 50 yrs Weight: 348 lb Reason For Study: Chest Pain NOS BSA: 2.6 m2 History: Age,Hypertension,Diab etes Ordering Physician: Gem Barr Referring Physician: Zacarias [...] mmHg MV P1/2t-pr: 94.6 msec E/LatE': 9.4 \\[id number] Normal [facility], [facility]. Invasive Cardiology Clinic N oteon 08-02-2021 Invasive Cardiology Clinic Note . [facility] A Division of [facility] Gem Barr M.D., [facility] [address] [place] [address] * Reason for VisitFOLLOW UP CHEST PAIN(1) [...] 19.7 Mitral Valve: No prolapse and No stenosis1-2+regurgita tion Aortic Valve: No Stenosis and No regurgitation [...] evident in Inferior leads Referred By: ZACARIAS ROMAIN Confirmed By: : 1970 Vital Signs: Vital [...] to con (more content not included)... Normal [employer] Vu 01-29-2021 ER EMERGENCY ROOM NOTE [...] up with his primary care physician and/or coat operator. Normal [facility] GLYCOHEMOGLOBINon 01-06-2021 HbA1c (Bld) [Mass fraction] 6.43 % High 4.60-6.30 [facility] Comment on above: Performed By: #### % A1c #### [facility] [address] [place] [id number] SUE Flores MD LIPID PROFILE - FASTINGon Cholesterol [Mass/Vol] 152 mg/dL Normal <=200 [facility] Comment on above: Performed By: #### L IPID #### [facility] [address] [place] [id number] SUE Flores MD Cholesterol in HDL [Mass/Vol] 28 mg/dL Low 40-60 [facility] Comment on above: Performed By: #### L IPID #### [facility] [address] [place] [id number] SUE Flores MD Cholesterol in LDL [Mass/Vol] 85 mg/dL Normal 0-130 [facility] Comment on above: Performed By: #### L IPID #### [facility] [address] [place] [phone] SUE Flores MD COMMENT Recommended (Desirable) < 130mg/dL Moderate Risk 130-159 mg/dL High Risk: >/= 130 mg/dL [facility] Comment on above: Performed By: #### L IPID #### [facility] [address] [place] [id number] SUE Flores MD Triglyceride [Mass/Vol] 198 mg/dL High <=[address] [facility] Comment on above: Performed By: #### L IPID #### [facility] [address] [place] [phone] SUE Flores MD RENAL FUNCTION PANELon 01-06 Albumin [Mass/Vol] 4.4 g/dL Normal 3.5-5.0 [facility] Comment on above: Performed By: #### R FP #### [facility] [address] [place], [place] [id number] SUE Flores MD Calcium [Mass/Vol] 9.6 mg/dL Normal 8.4-10.2 [facility] Comment on above: Performed By: #### R FP #### [facility] [address] [place] [address] SUE Flores MD Chloride [Moles/Vol] 96 mmol/L Low 98-107 [facility] Comment on above: Performed By: #### R FP #### [facility] [address] [place] [address] SUE Flores MD Creatinine [Mass/Vol] 0.9 mg/dL Normal 0.7-1.3 [facility] Comment on above: Performed By: #### R FP #### [facility] [address] [place] [address] SUE Flores MD ECO2 29 mmol/L Normal 22-30 [facility] Comment on above: Performed By: #### R FP #### [facility] [address] [place], [place] [id number] SUE Flores MD EGFR-AF MONGOLIAN 109 mL/min/1.73m 2 Normal >=60 [facility] Comment on above: Performed By: #### R FP #### [facility] [address] [place], [place] [id number] SUE Flores MD EGFR-NON AF MONGOLIAN 90 mL/min/1.73 m 2 Normal >=60 [facility] Comment on above: Performed By: #### R FP #### [facility] [address] [place], [place] [id number] SUE Flores MD Glucose [Mass/Vol] 146 mg/dL High 70-99 [facility] Comment on above: Performed By: #### R FP #### [facility] [address] [place], [place] [id number] SUE Flores MD Phosphate [Mass/Vol] 4.2 mg/dL Normal 2.5-4.5 [facility] Comment on above: Performed By: #### R FP #### [facility] [address] [place] [phone] SUE Flores MD Potassium [Moles/Vol] 4.0 mmol/L Normal 3.5-5.0 [facility] Comment on above: Performed By: #### R FP #### [facility] [address] [place], [place] [id number] SUE Flores MD Sodium [Moles/Vol] 136 mmol/L Low 137-145 [facility] Comment on above: Performed By: #### R FP #### [facility] [address] [place], [place] [id number] SUE Flores MD Urea nitrogen [Mass/Vol] 13 mg/dL Normal 9-20 [facility] Comment on above: Performed By: #### R FP #### [facility] [address] [place], [place] [id number] SUE Flores MD CHEST TWO VIEWSon 11-09-2020 CHEST TWO VIEWS TWO VIEWS OF THE CHEST CLINICAL HISTORY: Shortness of breath. PA and lateral views of the chest were performed and compared to prior exam of 02/01/19. The heart is normal size. Chronic changes are seen within the lungs. There is no consolidation, pleural effusion or pneumothorax. IMPRESSION: NO ACUTE PULMONARY DISEASE. BH Electronically signed by: FERNANDO DYER MD Approved By: FERNANDO DYER MD Date: 11/09/2020 3:55 PM Normal [facility] CBC PLT DIFFon 06-11-2020 BASO # 0.04 10 3/uL Normal 0.00-0.10 [facility] Comment on above: Performed By: #### C BC #### [facility] [address] [place], [place] [id number] SUE Flores MD Basophils/100 WBC (Bld) 0.5 % Normal 0.2-1.0 [facility] Comment on above: Performed By: #### C BC #### [facility] [address] [place], [place] [id number] SUE Flores MD EOS# 0.19 10 3/uL Normal 0.00-0.20 [facility] Comment on above: Performed By: #### C BC #### [facility] [address] [place] [address] SUE Flores MD Eosinophils/100 WBC (Bld) 2.3 % Normal 0.9-2.9 [facility] Comment on above: Performed By: #### C BC #### [facility] [address] [place] [address] SUE Flores MD Erythrocyte distribution width (RBC) [Ratio] 13.4 % Normal 11.5-15.5 [facility] Comment on above: Performed By: #### C BC #### [facility] [address] [place] [address] SUE Flores MD Hematocrit (Bld) [Volume fraction] 46.5 % Normal 42.0-52.0 [facility] Comment on above: Performed By: #### C BC #### [facility] [address] [place] [address] SUE Flores MD Hemoglobin (Bld) [Mass/Vol] 16.0 g/dL Normal 14.0-18.0 [facility] Comment on above: Performed By: #### C BC #### [facility] [address] [place] [address] SUE Flores MD IG# 0.04 10 3/uL Normal [facility] Comment on above: Performed By: #### C BC #### [facility] [address] [place] [address] SUE Flores MD IG% 0.5 % Normal [facility] Comment on above: Performed By: #### C BC #### [facility] [address] [place], [place] [id number] SUE Flores MD LYMPH# 1.41 10 3/uL Normal 1.30-2.90 [facility] Comment on above: Performed By: #### C BC #### [facility] [address] [place], [place] [id number] SUE Flores MD Lymphocytes/100 WBC (Bld) 17.4 % Low 20.5-45.5 [facility] Comment on above: Performed By: #### C BC #### [facility] [address] [place] [address] SUE Flores MD MCH (RBC) [Entitic mass] 30.1 pg Normal 27.0-31.0 [facility] Comment on above: Performed By: #### C BC #### [facility] [address] [place], [place] [id number] SUE Flores MD MCHC (RBC) [Mass/Vol] 34.4 g/dL Normal 32.0-36.0 [facility] Comment on above: Performed By: #### C BC #### [facility] [address] [place], [place] [id number] SUE Flores MD MCV (RBC) [Entitic vol] 87.6 fL Normal 80.0-94.0 [facility] Comment on above: Performed By: #### C BC #### [facility] [address] [place] [address] SUE Flores MD MONO# 0.67 10 3/uL Normal 0.30-0.80 [facility] Comment on above: Performed By: #### C BC #### [facility] [address] [place] [address] SUE Flores MD Monocytes/100 WBC (Bld) 8.3 % Normal 5.5-11.[address] [facility] Comment on above: Performed By: #### C BC #### [facility] [address] [place], [place] [id number] SUE Flores MD Morphology Rocky (Bld) [Interp] Normal [facility] Comment on above: Performed By: #### C BC #### [facility] [address] [place], [place] [id number] SUE Flores MD NEUT# 5.75 10 3/uL High 2.20-4.80 [facility] Comment on above: Performed By: #### C BC #### [facility] [address] [place], [place] [id number] SUE Flores MD Neutrophils/100 WBC (Bld) 71.0 % High 43.0-65.0 [facility] Comment on above: Performed By: #### C BC #### [facility] [address] [place] [address] SUE Flores MD NRBC# 0.00 10 3/uL Normal [facility] Comment on above: Performed By: #### C BC #### [facility] [address] [place], [place] [id number] SUE Flores MD Nucleated RBC/100 WBC (Bld) [Ratio] 0.0 % Normal [facility] Comment on above: Performed By: #### C BC #### [facility] [address] [place], [place] [id number] SUE Flores MD Platelet mean volume (Bld) [Entitic vol] 8.4 fL Normal 7.4-10.4 [facility] Comment on above: Performed By: #### C BC #### [facility] [address] [place] [address] SUE Flores MD PLT 221 10 3/uL Normal 130-400 [facility] Comment on above: Performed By: #### C BC #### [facility] [address] [place], [place] [id number] SUE Flores MD RBC 5.31 10 6/uL Normal 4.70-6.10 [facility] Comment on above: Performed By: #### C BC #### [facility] [address] [place], [place] [id number] SUE Flores MD WBC 8.10 10 3/uL Normal 4.70-10.80 [facility] Comment on above: Performed By: #### C BC #### [facility] [address] [place], [place] [id number] SUE Flores MD CMPon 06-11-2020 Albumin [Mass/Vol] 4.1 g/dL Normal 3.5-5.0 [facility] Comment on above: Performed By: #### C MP #### [facility] [address] [place], [place] [id number] SUE Flores MD ALP [Catalytic activity/Vol] 72 U/L Normal 38-126 [facility] Comment on above: Performed By: #### C MP #### [facility] [address] [place] [address] SUE Flores MD ALT [Catalytic activity/Vol] 17 U/L Low 21-72 [facility] Comment on above: Performed By: #### C MP #### [facility] [address] [place] [address] SUE Flores MD AST [Catalytic activity/Vol] 21 U/L Normal 17-59 [facility] Comment on above: Performed By: #### C MP #### [facility] [address] [place] [address] SEU Flores MD Bilirubin [Mass/Vol] 0.6 mg/dL Normal 0.2-1.3 [facility] Comment on above: Performed By: #### C MP #### [facility] [address] [place] [address] SUE Flores MD Calcium [Mass/Vol] 8.9 mg/dL Normal 8.4-10.2 [facility] Comment on above: Performed By: #### C MP #### [facility] [address] [place] [address] SUE Flores MD Chloride [Moles/Vol] 99 mmol/L Normal 98-107 [facility] Comment on above: Performed By: #### C MP #### [facility] [address] [place] [address] SUE Flores MD Creatinine [Mass/Vol] 0.7 mg/dL Normal 0.7-1.3 [facility] Comment on above: Performed By: #### C MP #### [facility] [address] [place] [address] SUE Flores MD ECO2 30 mmol/L Normal 22-30 [facility] Comment on above: Performed By: #### C MP #### [facility] [address] [place] [address] SUE Flores MD EGFR-AF MONGOLIAN 146 mL/min/1.73m 2 Normal >=60 [facility] Comment on above: Performed By: #### C MP #### [facility] [address] [place] [address] SUE Flores MD EGFR-NON AF MONGOLIAN 120 mL/min/1.73 m 2 Normal >=60 [facility] Comment on above: Performed By: #### C MP #### [facility] [address] [place] [address] SUE Flores MD Glucose [Mass/Vol] 125 mg/dL High 70-99 [facility] Comment on above: Performed By: #### C MP #### [facility] [address] [place] [address] SUE Flores MD Potassium [Moles/Vol] 3.6 mmol/L Normal 3.5-5.0 [facility] Comment on above: Performed By: #### C MP #### [facility] [address] [place] [address] SUE Flores MD Protein [Mass/Vol] 7.4 g/dL Normal 6.3-8.2 [facility] Comment on above: Performed By: #### C MP #### [facility] [address] [place] [address] SUE Flores MD Sodium [Moles/Vol] 136 mmol/L Low 137-145 [facility] Comment on above: Performed By: #### C MP #### [facility] [address] [place] [address] SUE Flores MD Urea nitrogen [Mass/Vol] 11 mg/dL Normal 9-20 [facility] Comment on above: Performed By: #### C MP #### [facility] [address] [place], [place] [id number] SUE Flores MD GLYCOHEMOGLOBINon 06-11-2020 HbA1c (Bld) [Mass fraction] 6.22 % Normal 4.00-6.30 [facility] Comment on above: Performed By: #### % A1c #### [facility] [address] [place] [address] SUE Flores MD LIPID PROFILE - FASTINGon Cholesterol [Mass/Vol] 147 mg/dL Normal <=200 [facility] Comment on above: Performed By: #### L IPID #### [facility] [address] [place] [id number] SUE Flores MD Cholesterol in HDL [Mass/Vol] 24 mg/dL Low 40-60 [facility] Comment on above: Performed By: #### L IPID #### [facility] [address] [place] [id number] SUE Flores MD Cholesterol in LDL [Mass/Vol] 89 mg/dL Normal 0-130 [facility] Comment on above: Performed By: #### L IPID #### [facility] [address] [place] [id number] SUE Flores MD COMMENT Recommended (Desirable) < 130mg/dL Moderate Risk 130-159 mg/dL High Risk: >/= 130 mg/dL Normal [facility] Comment on above: Performed By: #### L IPID #### [facility] [address] [place] [phone] SUE Flores MD Triglyceride [Mass/Vol] 167 mg/dL High <=150 [facility] Comment on above: Performed By: #### L IPID #### [facility] [address] [place], [place] [id number] SUE Flores MD URIC ACIDon 06-11-2020 Urate [Mass/Vol] 5.6 mg/dL Normal 3.5-8.5 [facility] Comment on above: Performed By: #### U R #### [facility] [address] [place], [place] [id number] SUE Flores MD Vital Signs Date Time Vital Sign Value Performing Clinician Adriano godinez 12-20-2024 14:00-0400 Inhaled oxygen flow rate 2 L/min Girma KNIGHTC Work Phone: [facility] 12-20-2024 03:00-0400 Diastolic blood pressure 82 mm[Hg] Girma KNIGHTC Work Phone: [facility] 12-20-2024 03:00-0400 Heart rate 61 /min Girma Correa CLERICAL MANAGER-C Work Phone: [facility] 12-20-2024 03:00-0400 Respiratory rate 17 /min Girma Correa CLERICAL MANAGER-C Work Phone: [facility] 12-20-2024 03:00-0400 SaO2% (BldA) [Mass fraction] 97 % Girma Sunny CLERICAL MANAGER-C Work Phone: [facility] 12-20-2024 03:00-0400 Systolic blood pressure 126 mm[Hg] Girma Correa CLERICAL MANAGER-C Work Phone: [facility] 12-20-2024 02:36-0400 Body temperature 98.2 [degF] Girma Correa CLERICAL MANAGER-C Work Phone: [facility] 12-19-2024 22:20-0400 Body height 175.26 cm Girma Sunny CLERICAL MANAGER-C Work Phone: [facility] 12-19-2024 22:20-0400 Body mass index (BMI) [Ratio] 47.5 kg/m2 Girma Sunny CLERICAL MANAGER-C Work Phone: [facility] 12-19-2024 22:20-0400 Body weight 146.1 kg Girma Sunny CLERICAL MANAGER-C Work Phone: [facility] 10-04-2024 21:13-0400 Reason For Taking VItal Signs DR ROBERT SCHMITZ MD [facility] 10-04-2024 19:37-0400 Heart rate 71 /min DR ROBERT Walls [facility] 10-04-2024 19:37-0400 Reason For Taking VItal Signs DR ROBERT SCHMITZ MD [facility] 10-04-2024 19:37-0400 Respiratory rate 18 /min DR ROBERT Walls [address] [place] [address] 10-04-2024 19:14-0400 Heart rate 66 /min DR ROBERT Walls [address] [place] [address] 10-04-2024 19:14-0400 Blood Pressure Cuff Size DR ROBERT SCHMITZ MD [address] [place] [address] 10-04-2024 19:14-[address] ROBERT SCHMITZ MD [address] [place] [address] 10-04-2024 19:14-[address] ROBERT SCHMITZ MD [address] [place] [address] 10-04-2024 19:14-0400 Body temperature 97.7 [degF] DR ROBERT Walls [address] [place] [address] 10-04-2024 19:14-0400 Diastolic Blood Pressure Non-Invasive 90 mm[Hg] DR ROBERT SCHMITZ MD [address] [place] [address] 10-04-2024 19:14-0400 Reason For Taking VItal Signs DR ROBERT SCHMITZ MD [address] [place] [address] 10-04-2024 19:14-0400 Respiratory rate 16 /min DR ROBERT Walls [address] [place] [address] 10-04-2024 19:14-0400 Systolic Blood Pressure Non-Invasive 138 mm[Hg] DR ROBERT SCHMITZ MD [address] [place] [address] 10-04-2024 16:28-0400 Heart rate 72 /min DR ROBERT Walls [address] [place] [address] 10-04-2024 15:31-0400 Heart rate 72 /min DR ROBERT Walls [address] [place] [address] 10-04-2024 15:31-0400 Blood Pressure Cuff Size DR ROBERT SCHMITZ MD [address] [place] [address] 10-04-2024 15:31-[address] ROBERT SCHMITZ MD [address] [place] [address] 10-04-2024 15:31-[address] ROBERT SCHMITZ MD [address] [place] [address] 10-04-2024 15:31-0400 Body temperature 97.52 [degF] DR ROBERT Walls [address] [place] [address] 10-04-2024 15:31-0400 Diastolic Blood Pressure Non-Invasive 72 mm[Hg] DR ROBERT SCHMITZ MD [address] [place] [address] 10-04-2024 15:31-0400 Respiratory rate 16 /min DR ROBERT Walls [address] [place] [address] 10-04-2024 15:31-0400 Systolic Blood Pressure Non-Invasive 120 mm[Hg] DR ROBERT SCHMITZ MD [address] [place] [address] 10-04-2024 15:02-0400 Blood Pressure Cuff Size DR ROBERT SCHMITZ MD [address] [place] [address] 10-04-2024 15:02-[address] ROBERT SCHMITZ MD [address] [place] [address] 10-04-2024 15:02-[address] ROBERT SCHMITZ MD [address] [place] [address] 10-04-2024 15:02-0400 Body temperature 97.88 [degF] DR ROBERT Walls [address] [place] [address] 10-04-2024 15:02-0400 Diastolic Blood Pressure Non-Invasive 78 mm[Hg] DR ROBERT SCHMITZ MD [address] [place] [address] 10-04-2024 15:02-0400 Heart rate 73 /min DR ROBERT Walls [address] [place] [address] 10-04-2024 15:02-0400 Systolic Blood Pressure Non-Invasive 116 mm[Hg] DR ROBERT SCHMITZ MD [address] [place] [address] 10-04-2024 11:59-0400 Heart rate 61 /min DR ROBERT Walls [address] [place] [address] 10-04-2024 07:54-0400 Heart rate 66 /min DR ROBERT Walls [address] [place] [address] 10-04-2024 07:46-0400 Heart rate 64 /min DR ROBERT Walls [address] [place] [address] 10-03-2024 16:05-0400 Heart rate 74 /min DR ROBERT Walls [address] [place] [address] 10-02-2024 06:28-0400 Body height 177.[address] ROBERT Walls [address] [place] [address] 10-02-2024 06:28-0400 Body weight 140.[address] ROBERT Walls [address] 10-02-2024 06:28-0400 Body weight 44.38 kg/m2 DR ROBERT Walls [address] 10-02-2024 05:00-0400 Diastolic Blood Pressure Non-Invasive 68 mm[Hg] DELORES DURESKA DO [facility] 10-02-2024 05:00-0400 Heart rate 116 /min DELORES DURESKA DO [facility] 10-02-2024 05:00-0400 Systolic Blood Pressure Non-Invasive 108 mm[Hg] DELORES DURESKA DO [facility] 10-02-2024 04:00-0400 Diastolic Blood Pressure Non-Invasive 70 mm[Hg] DELORES DURESKA DO [facility] 10-02-2024 04:00-0400 Heart rate 125 /min DELORES DURESKA DO [facility] 10-02-2024 04:00-0400 Systolic Blood Pressure Non-Invasive 101 mm[Hg] DELORES DURESKA DO [facility] 10-02-2024 02:31-0400 Body weight 143 kg DELORES DURESKA DO [facility] 10-02-2024 02:15-0400 Diastolic Blood Pressure Non-Invasive 90 mm[Hg] EDLORES BARROSOESKA DO [facility] 10-02-2024 02:15-0400 Heart rate 120 /min DELORES BARROSOESKA DO [facility] 10-02-2024 02:15-0400 Respiratory rate 18 /min DELROES BARROSOESKA DO [facility] 10-02-2024 02:15-0400 Systolic Blood Pressure Non-Invasive 106 mm[Hg] DELORES VOKA DO [facility] 10-02-2024 00:27-0400 Body temperature 98.06 [degF] DELORES VOKA DO [facility] 02-01-2024 16:08-0400 Heart rate 72 /min CINDY HERNANDEZ MD [facility] 02-01-2024 15:25-0400 Heart rate 68 /min CINDY HERNANDEZ MD [facility] 02-01-2024 15:25-0400 Respiratory rate 18 /min CINDY HERNANDEZ MD [facility] 02-01-2024 14:44-0400 Body temperature 98.6 [degF] CINDY HERNANDEZ MD [facility] 02-01-2024 14:44-0400 Diastolic Blood Pressure Non-Invasive 82 mm[Hg] CINDY HERNANDEZ MD [facility] 02-01-2024 14:44-0400 Heart rate 72 /min CINDY HERNANDEZ MD [facility] 02-01-2024 14:44-0400 Respiratory rate 18 /min CINDY HERNANDEZ MD [facility] 02-01-2024 14:44-0400 Systolic Blood Pressure Non-Invasive 119 mm[Hg] CINDY HERNANDEZ MD [facility] 02-01-2024 11:12-0400 Body temperature 98.24 [degF] CINDY HERNANDEZ MD [facility] 02-01-2024 11:12-0400 Diastolic Blood Pressure Non-Invasive 72 mm[Hg] CINDY HERNANDEZ MD [facility] 02-01-2024 11:12-0400 Heart rate 82 /min CINDY HERNANDEZ MD [facility] 02-01-2024 11:12-0400 Reason For Taking VItal Signs CINDY HERNANDEZ MD [facility] 02-01-2024 11:12-0400 Respiratory rate 18 /min CINDY HERNANDEZ MD [facility] 02-01-2024 11:12-0400 Systolic Blood Pressure Non-Invasive 101 mm[Hg] CINDY HERNANDEZ MD [facility] 02-01-2024 09:16-0400 Heart rate 79 /min CINDY HERNANDEZ MD [facility] 02-01-2024 09:04-0400 Blood Pressure Cuff Size CINDY HERNANDEZ MD [facility] 02-01-2024 09:04-0400 Blood Pressure Location CINDY HERNANDEZ MD [facility] 02-01-2024 09:04-0400 Blood Pressure Method CINDY HERNANDEZ MD [facility] 02-01-2024 09:04-0400 Body temperature 98.96 [degF] CINDY HERNANDEZ MD [facility] 02-01-2024 09:04-0400 Diastolic Blood Pressure Non-Invasive 64 mm[Hg] CINDY HERNANDEZ MD [facility] 02-01-2024 09:04-0400 Heart rate 84 /min CINDY HERNANDEZ MD [facility] 02-01-2024 09:04-0400 Reason For Taking VItal Signs CINDY HERNANDEZ MD [facility] 02-01-2024 09:04-0400 Systolic Blood Pressure Non-Invasive 105 mm[Hg] CINDY HERNANDEZ MD [facility] 02-01-2024 07:04-0400 Heart rate 60 /min CINDY HERNANDEZ MD [facility] 02-01-2024 03:35-0400 Heart rate 80 /min CINDY HERNANDEZ MD [facility] 02-01-2024 03:35-0400 Mean blood pressure 73 mm[Hg] CINDY HERNANDEZ MD [facility] 02-01-2024 03:35-0400 Reason For Taking VItal Signs CINDY HERNANDEZ MD [facility] 01-31-2024 23:23-0400 Heart rate 84 /min CINDY HERNANDEZ MD [facility] 01-31-2024 23:23-0400 Mean blood pressure 74 mm[Hg] CINDY HERNANDEZ MD [facility] 01-31-2024 18:38-0400 Mean blood pressure 79 mm[Hg] CINDY HERNANDEZ MD [facility] 01-31-2024 02:56-0400 Body height 175 cm CINDY HERNANDEZ MD [facility] 01-31-2024 02:56-0400 Body weight 149.1 kg CINDY HERNANDEZ MD [facility] 01-31-2024 02:56-0400 Body weight 48.69 kg/m2 CINDY HERNANDEZ MD [facility] 01-31-2024 01:18-[address] SAMY JONES MD [facility] 01-31-2024 01:18-[address] SAMY JONES MD [facility] 01-31-2024 01:18-0400 Diastolic Blood Pressure Non-Invasive 71 mm[Hg] DR SAMY JONES MD [facility] 01-31-2024 01:18-0400 Heart rate 90 /min DR SAMY JONES MD [facility] 01-31-2024 01:18-0400 Mean blood pressure 82 mm[Hg] DR SAMY JONES MD [facility] 01-31-2024 01:18-0400 Reason For Taking VItal Signs DR SAMY JONES MD [facility] 01-31-2024 01:18-0400 Respiratory rate 18 /min DR SAMY JONES MD [facility] 01-31-2024 01:18-0400 Systolic Blood Pressure Non-Invasive 111 mm[Hg] DR SAMY JONES MD [facility] 01-31-2024 01:07-[address] SAMY JONES MD [facility] 01-31-2024 01:07-[address] SAMY JONES MD [facility] 01-31-2024 01:07-0400 Diastolic Blood Pressure Non-Invasive 61 mm[Hg] DR SAMY JONES MD [facility] 01-31-2024 01:07-0400 Heart rate 85 /min DR SAMY JONES MD [facility] 01-31-2024 01:07-0400 Mean blood pressure 71 mm[Hg] DR SAMY JONES MD [facility] 01-31-2024 01:07-0400 Reason For Taking VItal Signs DR SAMY JONES MD [facility] 01-31-2024 01:07-0400 Respiratory rate 12 /min DR SAMY JONES MD [facility] 01-31-2024 01:07-0400 Systolic Blood Pressure Non-Invasive 90 mm[Hg] DR SAMY JONES MD [facility] 01-31-2024 00:58-[address] SAMY JONES MD [facility] 01-31-2024 00:58-[address] SAMY JONES MD [facility] 01-31-2024 00:58-0400 Diastolic Blood Pressure Non-Invasive 64 mm[Hg] DR SAMY JONES MD [facility] 01-31-2024 00:58-0400 Heart rate 89 /min DR SAMY JONES MD [facility] 01-31-2024 00:58-0400 Mean blood pressure 76 mm[Hg] DR SAMY JONES MD [facility] 01-31-2024 00:58-0400 Reason For Taking VItal Signs DR SAMY JONES MD [facility] 01-31-2024 00:58-0400 Respiratory rate 13 /min DR SAMY JONES MD [facility] 01-31-2024 00:58-0400 Systolic Blood Pressure Non-Invasive 97 mm[Hg] DR SAMY JONES MD [facility] 01-30-2024 20:22-0400 SaO2% (BldA) [Mass fraction] 88.8 % DR SAMY JONES MD [facility] 01-30-2024 20:15-0400 Body height 175.[address] SAMY JONES MD [facility] 01-30-2024 20:15-0400 Body temperature 99.32 [degF] DR SAMY JONES MD [facility] 01-30-2024 20:15-0400 Body weight 145.[address] SAMY JONES MD [facility] 01-30-2024 20:15-0400 Heart rate 133 /min DR SAMY JONES MD [facility] 08-09-2023 21:07-0400 Blood Pressure Cuff Size DR OLLIE BROOKE MD [facility] 08-09-2023 21:07-[address] OLLIE BROOKE MD [facility] 08-09-2023 21:07-[address] OLLIE BROOKE MD [facility] 08-09-2023 21:07-0400 Body height 177.[address] OLLIE BROOKE MD [facility] 08-09-2023 21:07-0400 Body temperature 96.98 [degF] DR OLLIE BROOKE MD [facility] 08-09-2023 21:07-0400 Body weight 155.[address] OLLIE BROOKE MD [facility] 08-09-2023 21:07-0400 Diastolic Blood Pressure Non-Invasive 78 mm[Hg] DR OLLIE BROOKE MD [facility] 08-09-2023 21:07-0400 Heart rate 70 /min DR OLLIE BROOKE MD [facility] 08-09-2023 21:07-0400 Reason For Taking VItal Signs DR OLLIE BROOKE MD [facility] 08-09-2023 21:07-0400 Respiratory rate 22 /min DR OLLIE BROOKE MD [facility] 08-09-2023 21:07-0400 Systolic Blood Pressure Non-Invasive 121 mm[Hg] DR OLLIE BROOKE MD [facility] 06-13-2023 01:18-0500 Diastolic Blood Pressure Non-Invasive 78 mm[Hg] DEMI HUSTON MD [facility] 06-13-2023 01:18-0500 Heart rate 80 /min DEMI HUSTON MD [facility] 06-13-2023 01:18-0500 Respiratory rate 18 /min DEMI HUSTON MD [facility] 06-13-2023 01:18-0500 Systolic Blood Pressure Non-Invasive 142 mm[Hg] DEMI HUSTON MD [facility] 06-13-2023 00:35-0500 Heart rate 74 /min DEMI HUSTON MD [facility] 06-13-2023 00:35-0500 Respiratory rate 20 /min DEMI HUSTNO MD [facility] 06-13-2023 00:03-0500 Body temperature 97.7 [degF] DEMI HUSTON MD [facility] 06-13-2023 00:03-0500 Diastolic Blood Pressure Non-Invasive 84 mm[Hg] DEMI HUSTON MD [facility] 06-13-2023 00:03-0500 Heart rate 67 /min DEMI HUSTON MD [facility] 06-13-2023 00:03-0500 Respiratory rate 20 /min DEMI HUSTON MD [facility] 06-13-2023 00:03-0500 Systolic Blood Pressure Non-Invasive 153 mm[Hg] DEMI HUSTON MD [facility] 06-09-2023 21:35-0500 Heart rate 60 /min MOY WATTS MD [facility] 06-09-2023 21:35-0500 Reason For Taking VItal Signs MOY WATTS MD [facility] 06-09-2023 21:35-0500 Respiratory rate 18 /min MOY WATTS MD [address] [place] [address] 06-09-2023 19:40-0500 Blood Pressure Cuff Size MOY WATTS MD [address] [place] [address] 06-09-2023 19:40-0500 Blood Pressure Location MOY WATTS MD [address] [place] [address] 06-09-2023 19:40-0500 Blood Pressure Method MOY WATTS MD [address] [place] [address] 06-09-2023 19:40-0500 Body temperature 98.24 [degF] MOY WATTS MD [address] [place] [address] 06-09-2023 19:40-0500 Diastolic Blood Pressure Non-Invasive 66 mm[Hg] MOY WATTS MD [address] [place] [address] 06-09-2023 19:40-0500 Heart rate 63 /min MOY WATTS MD [address] [place] [address] 06-09-2023 19:40-0500 Reason For Taking VItal Signs MOY WATTS MD [address] [place] [address] 06-09-2023 19:40-0500 Respiratory rate 18 /min MOY WATTS MD [address] [place] [address] 06-09-2023 19:40-0500 Systolic Blood Pressure Non-Invasive 112 mm[Hg] MOY WATTS MD [address] [place] [address] 06-09-2023 19:29-0500 Heart rate 63 /min MOY WATTS MD [address] [place] [address] 06-09-2023 16:56-0500 Heart rate 66 /min MOY WATTS MD [address] [place] [address] 06-09-2023 16:04-0500 Blood Pressure Cuff Size MOY WATTS MD [address] [place] [address] 06-09-2023 16:04-0500 Blood Pressure Location MOY WATTS MD [address] [place] [address] 06-09-2023 16:04-0500 Blood Pressure Method MOY WATTS MD [address] [place] [address] 06-09-2023 16:04-0500 Body temperature 97.88 [degF] MOY WATTS MD [address] [place] [address] 06-09-2023 16:04-0500 Diastolic Blood Pressure Non-Invasive 78 mm[Hg] MOY WATTS MD [address] [place] [address] 06-09-2023 16:04-0500 Reason For Taking VItal Signs MOY WATTS MD [address] [place] [address] 06-09-2023 16:04-0500 Respiratory rate 18 /min MOY WATTS MD [address] [place] [address] 06-09-2023 16:04-0500 Systolic Blood Pressure Non-Invasive 138 mm[Hg] MOY WATTS MD [address] [place] [address] 06-09-2023 11:17-0500 Blood Pressure Cuff Size MOY WATTS MD [address] [place] [address] 06-09-2023 11:17-0500 Blood Pressure Location MOY WATTS MD [address] [place] [address] 06-09-2023 11:17-0500 Blood Pressure Method MOY WATTS MD [address] [place] [address] 06-09-2023 11:17-0500 Body temperature 97.88 [degF] MOY WATTS MD [address] [place] [address] 06-09-2023 11:17-0500 Diastolic Blood Pressure Non-Invasive 64 mm[Hg] MOY WATTS MD [address] [place] [address] 06-09-2023 11:17-0500 Systolic Blood Pressure Non-Invasive 126 mm[Hg] MOY WATTS MD [address] [place] [address] 06-09-2023 08:54-0500 Heart rate 66 /min MOY WATTS MD [address] [place] [address] 06-08-2023 23:49-0500 Mean blood pressure 77 mm[Hg] MOY WATTS MD [address] [place] [address] 06-08-2023 17:50-0500 Heart rate 65 /min MOY WATTS MD [address] [place] [address] 06-08-2023 14:06-0500 Heart rate 58 /min MOY WATTS MD [address] [place] [address] 06-08-2023 07:05-0500 Mean blood pressure 90 mm[Hg] MOY WATTS MD [address] [place] [address] 06-07-2023 13:36-0500 Body height 176 cm MOY WATTS MD [address] [place] [address] 06-07-2023 13:36-0500 Body weight 152.9 kg MOY WATTS MD [address] [place] [address] 06-07-2023 13:36-0500 Body weight 49.36 kg/m2 MOY WATTS MD [address] [place] [address] 05-05-2023 20:50-0500 Diastolic Blood Pressure Non-Invasive 79 mm[Hg] DEMI HUSTON MD [facility] 05-05-2023 20:50-0500 Heart rate 84 /min DEMI HUSTON MD [facility] 05-05-2023 20:50-0500 Respiratory rate 20 /min DEMI HUSTON MD [facility] 05-05-2023 20:50-0500 Systolic Blood Pressure Non-Invasive 132 mm[Hg] DEMI HUSTON MD [facility] 05-05-2023 17:16-0500 Body height 175.3 cm DEMI HUSTON MD [facility] 05-05-2023 17:16-0500 Body temperature 97.88 [degF] DEMI HUSTON MD [facility] 05-05-2023 17:16-0500 Body weight 144.4 kg DEMI HUSTON MD [facility] 05-05-2023 17:16-0500 Diastolic Blood Pressure Non-Invasive 88 mm[Hg] DEMI HUSTON MD [facility] 05-05-2023 17:16-0500 Heart rate 68 /min DEMI HUSTON MD [facility] 05-05-2023 17:16-0500 Respiratory rate 20 /min DEMI HUSTON MD [facility] 05-05-2023 17:16-0500 Systolic Blood Pressure Non-Invasive 142 mm[Hg] DEMI HUSTON MD [facility] 02-12-2023 07:06-0400 Body height 175.26 cm [facility] 02-12-2023 07:06-0400 Body mass index (BMI) [Ratio] 49.5 kg/m2 [facility] 02-12-2023 07:06-0400 Body temperature 97.8 [degF] [facility] 02-12-2023 07:06-0400 Body weight 152.1 kg [facility] 02-12-2023 07:06-0400 Diastolic blood pressure 101 mm[Hg] [facility] 02-12-2023 07:06-0400 Heart rate 98 /min [facility] 02-12-2023 07:06-0400 Respiratory rate 16 /min [facility] 02-12-2023 07:06-0400 SaO2% (BldA) [Mass fraction] 95 % [facility] 02-12-2023 07:06-0400 Systolic blood pressure 132 mm[Hg] [facility] 12-23-2022 07:51-0400 Diastolic Blood Pressure Non-Invasive 68 1 MOY WATTS MD [address] [place] [address] 12-23-2022 07:51-0400 Heart rate 61 /min MOY WATTS MD [address] 12-23-2022 07:51-0400 Respiratory rate 12 /min MOY WATTS MD [address] 12-23-2022 07:51-0400 Systolic Blood Pressure Non-Invasive 106 1 MOY WATTS MD [address] [place] [address] 12-23-2022 07:39-0400 Diastolic Blood Pressure Non-Invasive 60 1 MOY WATTS MD [address] 12-23-2022 07:39-0400 Heart rate 64 /min MOY WATTS MD [address] [place] [address] 12-23-2022 07:39-0400 Respiratory rate 20 /min MOY WATTS MD [address] [place] [address] 12-23-2022 07:39-0400 Systolic Blood Pressure Non-Invasive 97 1 MOY WATTS MD [facility] 12-23-2022 07:34-0400 Diastolic Blood Pressure Non-Invasive 59 1 MOY WATTS MD [facility] 12-23-2022 07:34-0400 Heart rate 62 /min MOY WATTS MD [address] [place] [address] 12-23-2022 07:34-0400 Respiratory rate 16 /min MOY WATTS MD [address] [place] [address] 12-23-2022 07:34-0400 Systolic Blood Pressure Non-Invasive 74 1 MOY WATTS MD [facility] 12-23-2022 07:24-0400 Body temperature 97.34 [degF] MOY WATTS MD [address] 12-23-2022 07:20-0400 Heart rate 73 /min MOY WATTS MD [facility] 12-23-2022 07:20-0400 Respiratory Rate - Anes 22 br/min MOY WATTS MD [facility] 12-23-2022 07:15-0400 Heart rate 91 /min MOY WATTS MD [facility] 12-23-2022 07:15-0400 Respiratory Rate - Anes 18 br/min MOY WATTS MD [address] [place] [address] 12-23-2022 06:37-0400 Body height 175.3 cm MOY WATTS MD [facility] 12-23-2022 06:34-0400 Body height 175.3 cm MOY WATTS MD [facility] 12-23-2022 06:34-0400 Body temperature 95.54 [degF] MOY WATTS MD [facility] 12-23-2022 06:34-0400 Body weight 144 kg MOY WATTS MD [facility] 10-27-2022 06:49-0400 Body temperature 97.7 [degF] DR OLLIE BROOKE MD [facility] 10-27-2022 06:49-0400 Diastolic Blood Pressure Non-Invasive [address] OLLIE BROOKE MD [facility] 10-27-2022 06:49-0400 Heart rate 103 /min DR OLLIE BROOKE MD [facility] 10-27-2022 06:49-0400 Respiratory rate 22 /min DR OLLIE BROOKE MD [facility] 10-27-2022 06:49-0400 Systolic Blood Pressure Non-Invasive [address] OLLIE BROOKE MD [facility] 10-27-2022 06:14-0400 Body temperature 98.06 [degF] DR OLLIE BROOKE MD [facility] 10-27-2022 06:14-0400 Diastolic Blood Pressure Non-Invasive [address] OLLIE BROOKE MD [facility] 10-27-2022 06:14-0400 Heart rate 105 /min DR OLLIE BROOKE MD [facility] 10-27-2022 06:14-0400 Respiratory rate 22 /min DR OLLIE BROOKE MD [facility] 10-27-2022 06:14-0400 Systolic Blood Pressure Non-Invasive [address] OLLIE BROOKE MD [facility] 10-27-2022 05:05-0400 Body height 175.[address] OLLIE BROOKE MD [facility] 10-27-2022 05:05-0400 Body temperature 98.06 [degF] DR OLLIE BROOKE MD [facility] 10-27-2022 05:05-0400 Body weight [address] OLLIE BROOKE MD [facility] 10-27-2022 05:05-0400 Diastolic Blood Pressure Non-Invasive [address] OLLIE BROOKE MD [facility] 10-27-2022 05:05-0400 Heart rate 88 /min DR OLLIE BROOKE MD [facility] 10-27-2022 05:05-0400 Respiratory rate 22 /min DR OLLIE BROOKE MD [facility] 10-27-2022 05:05-0400 Systolic Blood Pressure Non-Invasive [address] OLLIE BROOKE MD [facility] 10-25-2022 01:00-0400 Heart rate 99 /min DEMI HUSTON MD [facility] 10-25-2022 01:00-0400 Systolic Blood Pressure Non-Invasive 139 1 DEMI HUSTON MD [facility] 10-25-2022 00:00-0400 Diastolic Blood Pressure Non-Invasive 94 1 DEMI HUSTON MD [facility] 10-25-2022 00:00-0400 Heart rate 102 /min DEMI HUSTON MD [facility] 10-25-2022 00:00-0400 Respiratory rate 18 /min DEMI HUSTON MD [facility] 10-25-2022 00:00-0400 Systolic Blood Pressure Non-Invasive 132 1 DEMI HUSTON MD [facility] 10-24-2022 23:21-0400 Body height 175.3 cm DEMI HUSTON MD [facility] 10-24-2022 23:21-0400 Body temperature 98.24 [degF] DEMI HUSTON MD [facility] 10-24-2022 23:21-0400 Body weight 139 kg DEMI HUSTON MD [facility] 10-24-2022 23:21-0400 Diastolic Blood Pressure Non-Invasive 99 1 DEMI HUSTON MD [facility] 10-24-2022 23:21-0400 Heart rate 105 /min DEMI HUSTON MD [facility] 10-24-2022 23:21-0400 Respiratory rate 19 /min DEMI HUSTON MD [facility] 10-24-2022 23:21-0400 Systolic Blood Pressure Non-Invasive 146 1 DEMI HUSTON MD [facility] 10-23-2022 10:51-0400 Diastolic blood pressure 76 mm[Hg] [facility] 10-23-2022 10:51-0400 Heart rate 73 /min [facility] 10-23-2022 10:51-0400 Respiratory rate 15 /min [facility] 10-23-2022 10:51-0400 SaO2% (BldA) [Mass fraction] 98 % [facility] 10-23-2022 10:51-0400 Systolic blood pressure 148 mm[Hg] [facility] 10-23-2022 05:58-0400 Body height 175.26 cm [facility] 10-23-2022 05:58-0400 Body mass index (BMI) [Ratio] 47.7 kg/m2 [facility] 10-23-2022 05:58-0400 Body temperature 97.6 [degF] [facility] 10-23-2022 05:58-0400 Body weight 146.8 kg [facility] 07-15-2022 21:40-0500 Diastolic Blood Pressure Non-Invasive 85 1 JEREMIE MCCORMACK MD [facility] 07-15-2022 21:40-0500 Heart rate 72 /min JEREMIE MCCORMACK MD [facility] 07-15-2022 21:40-0500 Respiratory rate 18 /min JEREMIE MCCORMACK MD [facility] 07-15-2022 21:40-0500 Systolic Blood Pressure Non-Invasive 148 1 JEREMIE MCCORMACK MD [facility] 07-15-2022 21:10-0500 Reason For Taking VItal Signs JEREMIE MCCORMACK MD [facility] 07-15-2022 20:42-0500 Body temperature 98.06 [degF] JEREMIE MCCORMACK MD [facility] 07-15-2022 20:42-0500 Diastolic Blood Pressure Non-Invasive 95 1 JEREMIE MCCORMACK MD [facility] 07-15-2022 20:42-0500 Heart rate 81 /min JEREMIE MCCORMACK MD [facility] 07-15-2022 20:42-0500 Respiratory rate 18 /min JEREMIE MCCORMACK MD [facility] 07-15-2022 20:42-0500 Systolic Blood Pressure Non-Invasive 149 1 JEREMIE MCCORMACK MD [facility] 07-11-2022 08:21-0500 Body height 175.3 cm MALORIE PEGUERO MD [facility] 07-11-2022 08:21-0500 Body temperature 97.7 [degF] MALORIE PEGUERO MD [facility] 07-11-2022 08:21-0500 Body weight 148.6 kg MALORIE PEGUERO MD [facility] 07-11-2022 08:21-0500 Diastolic Blood Pressure Non-Invasive 80 1 MALORIE PEGUERO MD [facility] 07-11-2022 08:21-0500 Heart rate 88 /min MALORIE PEGUERO MD [facility] 07-11-2022 08:21-0500 Respiratory rate 24 /min MALORIE PEGUERO MD [facility] 07-11-2022 08:21-0500 Systolic Blood Pressure Non-Invasive 150 1 MALORIE PEGUERO MD [facility] Encounters Encounter Date Encounter Type Care Provider Facility Start: 12-19-2024 End: 12-20-2024 Emergency department patient visit Girma IBARRA Work Phone: -Emergency Department Work Phone: Start: 12-10-2024 End: 12-13-2024 Evaluation and management of inpatient DELORES MURO DO [facility] Start: 12-04-2024 End: 12-04-2024 Emergency department patient visit JEREMIE MCCORMACK MD [facility] Start: 11-24-2024 End: 11-28-2024 Evaluation and management of inpatient DR SONNY MAX MD [facility] Start: 11-24-2024 End: 11-24-2024 Emergency department patient visit CIRILO PATEL DO [facility] Start: 11-06-2024 ambulatory Dolly HOLCOMB Facili ty:[facility] Start: 11-06-[address] Dolly Marino MD -[facility] Start: 11-04-2024 ambulatory Dolly HOLCOMB Facili ty:[facility] Start: 11-04-[address] Dolly Marino MD -[facility] Start: 10-30-2024 ambulatory Girma Correa NP Facil ity:[facility] Start: 10-30-[address] Dolly Marino MD -[facility] Start: 10-28-2024 ambulatory Girma Correa NP Facil ity:[facility] Start: 10-28-[address] Dolly Marino MD -[facility] Start: 10-24-2024 ambulatory Girma Correa NP Facil ity:[facility] Start: 10-24-[address] Dolly Marino MD -[facility] Start: 10-16-2024 End: 10-23-2024 Evaluation and management of inpatient NANI QUINTANA DO [facility] Start: 10-16-2024 End: 10-16-2024 Emergency department patient visit JAKE MAXWELL [facility] Start: 10-02-2024 End: 10-04-2024 Evaluation and management of inpatient DR ROBERT SCHMITZ MD [facility] Start: 10-02-2024 End: 10-02-2024 Emergency department patient visit DELORES TAVOIZA [facility] Start: 09-05-2024 ambulatory GIRMA SUNNY [employer] [facility] Start: 08-29-2024 End: 08-29-2024 Emergency department patient visit GIRMA CORREA [employer] [facility] Start: 08-27-2024 End: 08-27-2024 ambulatory GIRMA CORREA [employer] [facility] Start: 08-13-2024 End: 08-13-2024 Emergency department patient visit DR WILNER JOE MD Facility:[facility] Start: 05-14-2024 End: 05-14-2024 ambulatory GIRMA SUNNY [employer] [facility] Start: 05-14-2024 End: 05-14-2024 Patient encounter procedure GIRMA CORREA [employer] [facility] Start: 03-25-2024 ambulatory GIRMA SUNNY [employer] [facility] Start: 03-25-2024 End: 03-29-2024 ambulatory GIRMA SUNNY [employer] [facility] Start: 03-25-2024 End: 03-29-2024 Outreach Lab HELEN YANES [employer] [facility] Start: 02-16-2024 End: 02-16-2024 ambulatory GIRMA WELLSAJ [employer] Facility:[facility] Start: 02-16-2024 End: 02-16-2024 Patient encounter procedure GIRMA WELLSAJ [employer] [facility] Start: 02-12-2024 End: 02-12-2024 ambulatory GIRMA CORREA [employer] Facility[facility] Start: 02-12-2024 End: 02-12-2024 Patient encounter procedure GIRMA CORREA [employer] [facility] Start: 01-31-2024 End: 02-01-2024 Evaluation and management of inpatient GIRMA CORREA Facility:A Start: 01-30-2024 End: 01-31-2024 Emergency department patient visit DR SAMY JONES MD [facility] Start: 10-11-2023 End: 10-11-2023 ambulatory [facility] Start: 08-22-2023 End: 08-22-2023 ambulatory GIRMA CORREA Facility:[facility] Start: 08-22-2023 End: 08-22-2023 Patient encounter procedure GIRMA CORREA [employer] [facility] Start: 08-09-2023 End: 08-09-2023 Emergency department patient visit DR OLLIE BROOKE MD [facility] Start: 08-08-2023 End: 08-12-2023 ambulatory GIRMA CORREA Facility:[facility] Start: 08-08-2023 End: 08-12-2023 Outreach Lab GIRMA CORREA [employer] [facility] Start: 08-08-2023 End: 08-08-2023 ambulatory GIRMA CORREA Facility:[facility] Start: 06-13-2023 End: 06-13-2023 Emergency department patient visit DEMI HUSTON MD [facility] Start: 06-07-2023 End: 06-09-2023 Evaluation and management of inpatient MOY WATTS MD [facility] Start: 05-05-2023 End: 05-05-2023 Emergency department patient visit DEMI HUSTON MD [facility] Start: 05-03-2023 ambulatory JAD Coombs Facility:[facility] Start: 04-03-2023 End: 04-03-2023 ambulatory GIRMA CORREA Facility:[facility] Start: 04-03-2023 End: 04-03-2023 Patient encounter procedure JONNY HOFF [employer] [facility] Start: 03-22-2023 End: 03-22-2023 ambulatory GIRMA LORSON Facility:[facility] Start: 03-14-2023 ambulatory GIRMA LORSON Facility :[facility] Start: 02-22-2023 ambulatory GIRMA LORSON Facility :[facility] Start: 02-12-2023 End: 02-12-2023 Emergency department patient visit [facility] Work Phone: Start: 02-01-2023 End: 02-01-2023 Patient encounter procedure GIRMA CORREA [employer] [facility] Start: 12-23-2022 End: 12-23-2022 Minor Procedure MOY WATTS MD [facility] Start: 11-11-2022 End: 11-11-2022 Patient encounter procedure MOY WATTS MD [facility] Start: 10-27-2022 End: 10-27-2022 Emergency department patient visit DR OLLIE BROOKE MD [facility] Start: 10-24-2022 End: 10-25-2022 Emergency department patient visit DEMI HUSTON MD [facility] Start: 10-23-2022 End: 10-23-2022 Emergency department patient visit [facility] Start: 07-15-2022 End: 07-15-2022 Emergency department patient visit JEREMIE MCCORMACK MD [facility] Start: 07-11-2022 End: 07-11-2022 Emergency department patient visit MALORIE PEGUERO MD [facility] Start: 07-05-2022 End: 07-05-2022 ambulatory [facility] Start: 04-12-2022 End: 04-12-2022 [facility] Start: 03-11-2022 ambulatory [facility] Facility: [facility] [place] [place] Start: 01-12-2022 End: 01-12-2022 ambulatory [facility] Start: 08-24-2021 ambulatory [facility] Start: 08-17-2021 End: 08-18-[address] [facility] Start: 08-02-2021 ambulatory [facility] Procedures Date Procedure Procedure Detail Performing Clinician Start: 12-20-2024 CT angiography of ch est with contrast Girma IBARRA Work Phone: Start: 12-19-2024 Plain chest X-ray Aura IBARRA Work Phone: Start: 12-19-2024 D-dimer assay, quantitative Girma IBARRA Work Phone: Comment on above: D-Dimer ELEVATED (>0 .49): Additional studies and clinicalassessments are indicated to conclude diagnosis of:Deep Vein Thrombosis (DVT) or Pulmonary Embolism (PE)CRITICAL VALUE CALLED TO [id number]/25/25 0020 Marquez Swain.RESULTS READ BACK BY SAME. Start: 12-19-2024 Estimated creatinine clearance Girma Correa CLERICAL MANAGER-C Work Phone: Start: 10-28-2024 Vitamin D, 25-hydrox y measurement Girma Correa CLERICAL MANAGER-C Work Phone: Comment on above: Vitamin D StatusDefi ciency: <20 ng/mL (50nmol/L)Insufficiency: 20-30 ng/mL (50-75 nmol/L)Sufficiency: 30-100 ng/mL (75-250 nmol/L)Toxicity: >100 ng/mL (>250 nmol/L) Start: 03-25-2024 Excision HELEN LOUISALD [employer]PARER Comment on above: excision of multilob ulated lipomatous mass right forearm Start: 01-31-2024 Echocardiography CHUN CORREA [employer]PAR[employer] Start: 02-12-2023 SARS-CoV-2 & FLU Ant igen (Rapid) Start: 02-12-2023 Viral antigen assay Start: 02-12-2023 Plain chest X-ray Start: 12-23-2022 Cardioversion JAD WATTS MD Start: 11-11-2022 Echocardiography JONNY HOFF [employer] TE[employer]PARER Comment on above: 1. Left ventricle: T [...] Treatment Date Care Activity Detail Author Start: 12-20-2024 [facility] Start: 12-19-2024 [facility] Start: 10-23-2022 [facility] Patient Education [facility] Work Phone: Patient referral [facility] Work Phone: Troponin T.cardiac [Mass/volume] in Serum or Plasma by High sensitivity method [facility] Immunizations Immunization Date Immunization Notes Care Provider Fa cili 04-12-2022 influenza virus vaccine, unspecified formulation MOY WATTS MD [facility] Comment on above: Result Comment: 2023: VIS DATE: 01/01/2021 04-12-2022 pneumococcal conjugate vaccine, 13 valent MOY WATTS MD [facility] Comment on above: Result Comment: 2023: VIS DATE: 07/02/2021 09-11-2020 SARS-CoV-2 (COVID-19 ) mRNA-1273 vaccine MOY WATTS MD [facility] 08-14-2020 SARS-CoV-2 (COVID-19 ) mRNA-1273 vaccine MOY WATTS MD [facility] Payers Date Payer Category Payer Self-pay 2024 Medicaid [id number] 2024 Private Health Insurance 5e [id number] 2023 Medicaid [id number] 1971 Unknown [id number] 2.16.8 40.1.172215.3.579.2.1076 1971 Unknown [id number] 2.16. 840.1.531286.3.579.2.297 1971 Unknown [id number] 2.16.8 40.1.740713.3.579.2.627 1971 Unknown [id number] 2.16.8 40.1.394729.3.579.2.627 1971 Unknown [id number] 2.16.8 40.1.796700.3.579.2.627 1971 Unknown [id number] 2.16.8 40.1.250277.3.579.2.627 1971 Unknown [id number] 2.16.8 40.1.952886.3.579.2.627 1971 Unknown [id number] 2.16.8 40.1.126737.3.579.2.627 1971 Unknown [id number] 2.16.8 40.1.211302.3.579.2.627 1971 Unknown [id number] 2.16.8 40.1.288633.3.579.2.627 1971 Unknown [id number] 2.16.8 40.1.967135.3.579.2.627 1971 Unknown [id number] 2.16.8 40.1.897025.3.579.2.627 1971 Unknown [id number] 2.16.8 40.1.357515.3.579.2.627 1971 Unknown [id number] 2.16.8 40.1.167201.3.579.2.627 1971 Unknown [id number] 2.16.8 40.1.626079.3.579.2.627 1971 Unknown [id number] 2.16.8 40.1.521019.3.579.2.627 1971 Unknown [id number] 2.16.8 40.1.330919.3.579.2.651 1971 Unknown [id number] 2.16. 840.1.358644.3.579.2. 1971 Unknown [id number] 2.16. 840.1.551652.3.579.2.7 1971 Unknown [id number] 2.16.8 40.1.886525.3.579.2. 1971 Unknown [id number] 2.16.8 40.1.350132.3.579.2.7 1971 Unknown [id number] 2.16. 840.1.078385.3.579.2. 1971 Unknown [id number] 2.16. 840.1.687380.3.579.2. 1971 Unknown [id number] 2.16. 840.1.586833.3.579.2. 1971 Unknown [id number] 2.16.8 40.1.470165.3.579.2. 1971 Unknown [id number] 2.16.8 40.1.828426.3.579.2. 1971 Unknown [id number] 2.16.8 40.1.487581.3.579.2. 1971 Unknown [id number] 2.16.8 40.1.658291.3.579.2. 1971 Unknown [id number] 2.16.8 40.1.037615.3.579.2.7 1971 Unknown [id number] 2.16.8 40.1.320229.3.579.2. 1971 Unknown [id number] 2.16.8 40.1.671818.3.579.2.7 1971 Unknown [id number] 2.16.8 40.1.289326.3.579.2.7 1971 Unknown [id number] 2.16.8 40.1.954684.3.579.2.627 1971 Unknown [id number] 2.16.8 40.1.335324.3.579.2.627 1971 Unknown [id number] 2.16.8 40.1.727992.3.579.2.627 Unknown [id number] Unknown [id number] 2.16.8 40.1.186096.3.579.2.443 Unknown [id number] 2.16.8 40.1.839747.3.579.2.462 Unknown [id number] 2.16.8 40.1.422079.3.579.2.462 Unknown [id number] 2.16.8 40.1.971444.3.579.2.462 Unknown [id number] 2.16.8 40.1.786504.3.579.2.462 Unknown [id number] 2.16.8 40.1.006680.3.579.2.462 Social History Date Type Detail Facility Start: 07-11-2022 End: 12-19-2024 Tobacco smoking status Ex-smoker (finding) [facility] Start: 1970 Sex Assigned At Male A [facility] Start: 10-23-2022 End: 02-12-2023 Tobacco smoking status NEIS Unknown if ever smoked [facility] Tobacco Nicotine Use: sn uff. Type: Oral (Snuff, Chew). [facility] Comment on above: using NicoDerm patch Stopped chewing snuf f October 2022 Tobacco smoking status [facility] Start: 06-07-2023 End: 08-08-2023 Tobacco smoking status Former smokeless tobacco user, quit more than 30 days ago [facility] Start: 07-11-2022 Sex Male (finding) [facility] Medical Equipment Procedure Code Equipment Code Equipment Origin al Text Equipment Identifier Dates See Instructions , 1 bottle of 100 Test once daily, # 1 EA, 11 Refill(s), Pharmacy: [facility], 177.8, cm, 11/28/23 13:54:00 EDT, Height, 151.4, kg, 11/28/23 13:54:00 EDT, Dosing Weight Start: 12-12-2023 See Instructions , qs 1 month supply Test once daily, # 1 EA, 11 Refill(s), Pharmacy: [facility], 177.8, cm, 11/28/23 13:54:00 EDT, Height, 151.4, kg, 11/28/23 13:54:00 EDT, Dosing Weight Start: 12-12-2023 See Instructions , 1 bottle of 100 Test once daily, # 1 EA, 11 Refill(s), Pharmacy: [facility], 177.8, cm, 11/28/23 13:54:00 EDT, Height, 151.4, kg, 11/28/23 13:54:00 EDT, Dosing Weight Start: 12-12-2023 See Instructions , qs 1 month supply Test once daily, # 1 EA, 11 Refill(s), Pharmacy: [facility], 177.8, cm, 11/28/23 13:54:00 EDT, Height, 151.4, kg, 11/28/23 13:54:00 EDT, Dosing Weight Start: 12-12-2023 See Instructions , 1 bottle of 100 Test once daily, # 1 EA, 11 Refill(s), Pharmacy: [facility], 177.8, cm, 11/28/23 13:54:00 EDT, Height, 151.4, kg, 11/28/23 13:54:00 EDT, Dosing Weight Start: 12-12-2023 See Instructions , qs 1 month supply Test once daily, # 1 EA, 11 Refill(s), Pharmacy: [facility], 177.8, cm, 11/28/23 13:54:00 EDT, Height, 151.4, kg, 11/28/23 13:54:00 EDT, Dosing Weight Start: 12-12-2023 See Instructions , 1 bottle of 100 Test once daily, # 1 EA, 11 Refill(s), Pharmacy: [facility], 177.8, cm, 11/28/23 13:54:00 EDT, Height, 151.4, kg, 11/28/23 13:54:00 EDT, Dosing Weight Start: 12-12-2023 See Instructions , qs 1 month supply Test once daily, # 1 EA, 11 Refill(s), Pharmacy: [facility], 177.8, cm, 11/28/23 13:54:00 EDT, Height, 151.4, kg, 11/28/23 13:54:00 EDT, Dosing Weight Start: 12-12-2023 See Instructions , 1 bottle of 100 Test once daily, # 1 EA, 11 Refill(s), Pharmacy: [facility], 177.8, cm, 11/28/23 13:54:00 EDT, Height, 151.4, kg, 11/28/23 13:54:00 EDT, Dosing Weight Start: 12-12-2023 See Instructions , qs 1 month supply Test once daily, # 1 EA, 11 Refill(s), Pharmacy: [facility], 177.8, cm, 11/28/23 13:54:00 EDT, Height, 151.4, kg, 11/28/23 13:54:00 EDT, Dosing Weight Start: 12-12-2023 See Instructions , 1 bottle of 100 Test once daily, # 1 EA, 11 Refill(s), Pharmacy: [facility], 177.8, cm, 11/28/23 13:54:00 EDT, Height, 151.4, kg, 11/28/23 13:54:00 EDT, Dosing Weight Start: 12-12-2023 See Instructions , qs 1 month supply Test once daily, # 1 EA, 11 Refill(s), Pharmacy: [facility], 177.8, cm, 11/28/23 13:54:00 EDT, Height, 151.4, kg, 11/28/23 13:54:00 EDT, Dosing Weight Start: 12-12-2023 Extremity Dehydrogenation Converter Operator al Fixator Application L Unknown 10/17/24 Unknown Unknown FDA Start: 10-17-2024 Extremity Dehydrogenation Converter Operator al Fixator Application L Unknown 10/17/24 Unknown Unknown FDA Start: 10-17-2024 Extremity Dehydrogenation Converter Operator al Fixator Application L Unknown 10/17/24 Unknown Unknown FDA Start: 10-17-2024 Extremity Dehydrogenation Converter Operator al Fixator Application L Unknown 10/17/24 Unknown Unknown FDA Start: 10-17-2024 Extremity Dehydrogenation Converter Operator al Fixator Application L Unknown 10/17/24 Unknown Unknown FDA Start: 10-17-2024 Extremity Dehydrogenation Converter Operator al Fixator Application L Unknown 10/17/24 Unknown Unknown FDA Start: 10-17-2024 Extremity Dehydrogenation Converter Operator al Fixator Application L Unknown 10/17/24 Unknown Unknown FDA Start: 10-17-2024 Extremity Dehydrogenation Converter Operator al Fixator Application L Unknown 10/17/24 Unknown Unknown FDA Start: 10-17-2024 Extremity Dehydrogenation Converter Operator al Fixator Application L Unknown 10/17/24 Unknown Unknown FDA Start: 10-17-2024 Extremity Dehydrogenation Converter Operator al Fixator Application L Unknown 10/17/24 Unknown Unknown FDA Start: 10-17-2024 Extremity Dehydrogenation Converter Operator al Fixator Application L Unknown 10/17/24 Unknown Unknown FDA Start: 10-17-2024 Extremity Dehydrogenation Converter Operator al Fixator Application L Unknown 10/17/24 Unknown Unknown FDA Start: 10-17-2024 Extremity Dehydrogenation Converter Operator al Fixator Application L Unknown 10/17/24 Unknown Unknown FDA Start: 10-17-2024 Extremity Dehydrogenation Converter Operator al Fixator Application L Unknown 10/17/24 Unknown Unknown FDA Start: 10-17-2024 Extremity Dehydrogenation Converter Operator al Fixator Application L Unknown 10/17/24 Unknown Unknown FDA Start: 10-17-2024 Extremity Dehydrogenation Converter Operator al Fixator Application L Unknown 10/17/24 Unknown Unknown FDA Start: 10-17-2024 Extremity Dehydrogenation Converter Operator al Fixator Application L Unknown 10/17/24 Unknown Unknown FDA Start: 10-17-2024 Extremity Dehydrogenation Converter Operator al Fixator Application L Unknown 10/17/24 Unknown Unknown FDA Start: 10-17-2024 Extremity Dehydrogenation Converter Operator al Fixator Application L Unknown 10/17/24 Unknown Unknown FDA Start: 10-17-2024 Extremity Dehydrogenation Converter Operator al Fixator Application L Unknown 10/17/24 Unknown Unknown FDA Start: 10-17-2024 Extremity Dehydrogenation Converter Operator al Fixator Application L Unknown 10/17/24 Unknown Unknown FDA Start: 10-17-2024 Extremity Dehydrogenation Converter Operator al Fixator Application L Unknown 10/17/24 Unknown Unknown FDA Start: 10-17-2024 Extremity Dehydrogenation Converter Operator al Fixator Application L Unknown 10/17/24 Unknown Unknown FDA Start: 10-17-2024 Extremity Dehydrogenation Converter Operator al Fixator Application L Unknown 10/17/24 Unknown Unknown FDA Start: 10-17-2024 Extremity Dehydrogenation Converter Operator al Fixator Application L Unknown 10/17/24 Unknown Unknown FDA Start: 10-17-2024 Extremity Dehydrogenation Converter Operator al Fixator Application L Unknown 10/17/24 Unknown Unknown FDA Start: 10-17-2024 Extremity Dehydrogenation Converter Operator al Fixator Application L Unknown 10/17/24 Unknown Unknown FDA Start: 10-17-2024 Extremity Dehydrogenation Converter Operator al Fixator Application L Unknown 10/17/24 Unknown Unknown FDA Start: 10-17-2024 Extremity Dehydrogenation Converter Operator al Fixator Application L Unknown 10/17/24 Unknown Unknown FDA Start: 10-17-2024 Extremity Dehydrogenation Converter Operator al Fixator Application L Unknown 10/17/24 Unknown Unknown FDA Start: 10-17-2024 Functional Status Date Assessment Result Facility 10-04-2024 Functional Status Room located n ear nursing station, Door open, Bathroom light on, Non-Slip footwear, Room check performed [facility] 10-04-2024 Functional Status [facility] 10-04-2024 Functional Status [facility] 10-04-2024 Functional Status Breakfast Percent 80 [facility] 10-04-2024 Functional Status [facility] 10-03-2024 Functional Status Done [facility] 10-03-2024 Functional Status Sequential Com pression Device bilateral knee high removed/off [facility] 10-02-2024 Functional Status ID band on, Call device within reach, Bed in low position [facility] 02-01-2024 Functional Status Room check performed [facility] 02-01-2024 Functional Status [facility] 02-01-2024 Functional Status [facility] 02-01-2024 Functional Status Maintained [facility] 01-31-2024 Functional Status [facility] 01-31-2024 Functional Status 7pm-7am [facility] 01-31-2024 Functional Status Living Situati on Lives with family [facility] 01-31-2024 Functional Status Skin Care Prev entative Intervention(s) heel(s)s elevated, padded oxygen tubing, turn and position system [facility] 01-31-2024 Functional Status [facility] 01-31-2024 Functional Status Independent [facility] 01-30-2024 Functional Status Standard Safet y ID band on, Call device within reach, Bed in low position, Wheels locked, Upper/Half-Length side-rails up, personal items within reach, Bedside Cart Locked, Visitor at bedside [facility] 08-09-2023 Functional Status Awake, Resting [facility] 06-13-2023 Functional Status ID band on, Call device within reach [facility] 06-09-2023 Functional Status Room check performed [facility] 06-09-2023 Functional Status [facility] 06-09-2023 Functional Status [facility] 06-09-2023 Functional Status [facility] 06-08-2023 Functional Status Home independe ntly, Lives with significant other [facility] 06-08-2023 Functional Status Skin Care Prev entative Intervention(s) padded oxygen tubing [facility] 06-08-2023 Functional Status bilateral knee high removed/off [facility] 06-07-2023 Functional Status Sensory Deficits None A [facility] 05-05-2023 Functional Status Assistive Device None A [facility] 05-05-2023 Functional Status Standard Safet y ID band on, Call device within reach, Bed in low position, Wheels locked, Visitor at bedside [facility] 12-23-2022 Functional Status Ambulating in room, Awake [facility] 12-23-2022 Functional Status Maintained [facility] 10-27-2022 Functional Status Room check performed [facility] 10-27-2022 Functional Status [facility] 10-25-2022 Functional Status Independent [facility] 10-24-2022 Functional Status Standard Safet y ID band on, Call device within reach, Bed in low position, Wheels locked, Upper/Half-Length side-rails up, personal items within reach, Visitor at bedside [facility] 07-15-2022 Functional Status Room check performed [facility] 07-11-2022 Functional Status Up ad traci [facility] Mental Status Date Assessment Result Facility 12-19-2024 Cognitive function Voice/Name [facility] Work Phone: 10-04-2024 [facility] 10-04-2024 Mental Status [facility] 10-02-2024 Mental Status Orientation Oriented x 4 [facility] 02-01-2024 Mental Status Orientation Oriented x 4 [facility] 02-01-2024 Mental Status [facility] 01-31-2024 Mental Status [facility] 01-31-2024 Mental Status [facility] 01-30-2024 Mental Status Orientation Oriented x 4 [facility] 08-09-2023 Mental Status [facility] 06-13-2023 Mental Status Orientation Oriented x 4 [facility] 06-09-2023 Mental Status [facility] 06-09[facility]23 [facility]23 Mental Status [facility] 06-08-2023 [facility]-05[facility]23 Mental Status Orientation Oriented x 4 [facility] 05-05-2023 Mental Status [facility] 12-23-2022 Mental Status Oriented x 4 [facility] 10-27-2022 Mental Status Orientation Oriented x 4 [facility] 10-27-2022 Mental Status [facility] 10-25-2022 Mental Status Orientation Oriented x 4 [facility] 10-24-2022 Mental Status [facility] 10-23-2022 Cognitive function Voice/Name [facility] Work Phone: 07-15-2022 Mental Status Oriented x 4 [facility] 07-11-2022 Mental Status Oriented x 4 [facility] Clinical Notes 02-07-2022 to 12-20-2024 Note Date & Type Note Facility 12-20-2024 Radiology Diagnostic study note [facility] Imaging Services [address] [place], [place] [address] CTA Chest W/WO Contrast MR#: [id number] Acct: [id number] Name: CARLOS ALBERTO KELLEY Jr. Rep #: [id number] : 1970 M 54 From: Whitley Presley MD PCP: Dr. Jhonatan Garcia DO Status: REG ER Study:CTA Chest W/WO Contrast Date of Exam: 12/20/24 Exam# [id number] Ordering Dr: Nguyễn Al DO PROCEDURE: CTA CHEST W/WO CONTRAST 12/20/2024 REASON FOR EXAM: HYPOXIA TECHNIQUE: CTA CHEST W/WO CONTRAST Multiplanar Sagittal and Coronal images were obtained. CONTRAST: Isovue 370 VOLUME: 76 mL One or more dose reduction techniques were used (e.g., Automated exposure control, adjustment of the mA and/or kV according to patient size, use of iterative reconstruction technique). RADIATION DOSE SUMMARY: CTDlvol: 80 mGy DLP: 1142 mGycm COMPARISON: Chest x-ray 12/19/2024 FINDINGS: Unremarkable base of neck and axilla. Normal esophagus. Upper limits of normalheart size. Small pericardial effusion. No aortic dissection. No pulmonary embolism. Central airways are patent. There is bronchial wall thickening. Tiny bilateraleffusions, under aerated lung bases. No consolidation or pneumothorax. Cirrhotic liver morphology. No acute upper abdominal findings. Gynecomastia. No acute chest wall findings. CT/CTA Chest W/WO Contrast IMPRESSION: No embolism, dissection, or pneumonia. Reading [facility] CC: Dr. Jhonatan Garcia DO; Dr. Nguyễn Al DO ~ Slot Manager: Signed [facility] 12-19-2024 Radiology Diagnostic study note [facility] Imaging Services [address] [facility] [place] [address] Chest 1 View (Portable) MR#: [id number] Acct: [id number] Name: CARLOS ALBERTO KELLEY Jr. Rep #: [id number] : 1970 M 54 From: Britney Avalos MD PCP: STACEY Pena Status: PRE E R Study:Chest 1 View (Portable) Date of Exam: 12/19/24 Exam# [id number] Ordering Dr: Nguyễn Al DO PROCEDURE: CHEST 1 VIEW (PORTABLE) 12/19/2024 REASON FOR EXAM: CHEST PAIN TECHNIQUE: Frontal view of the chest. COMPARISON: Chest radiographs 02/12/2023 FINDINGS: Hardware: None Heart: Cardiac and mediastinal contours are stable. Lungs: Lung volumes are low. There is questionable patchy opacity at the right mid lung zone. Bones: Degenerative changes are identified within the thoracic spine. RAD/Chest 1 View (Portable) IMPRESSION: Low lung volumes limits this evaluation. Questionable patchy opacity at the right mid lung zone could be artifactual, with infection, atelectasis, or edema also possible. Reading Location: [id number] CC: STACEY Correa; Dr. Nguyễn Al DO ~ Slot Manager: Signed [facility] 12-13-2024 Hospital Discharge instructions Patient Education 12/13/2024 10:21:44 Acute Respiratory Failure, Adult Acute Respiratory Failure, Adult Acute respiratory failure occurs when there is not enough oxygen passing from your lungs to your body. When this happens, your lungs have trouble removing carbon dioxide from the blood. This causes your blood oxygen level to drop too low as carbon dioxide builds up. Acute respiratory failure is a medical emergency. It can develop quickly, but it is temporary if treated promptly. Your lung capacity, or how much air your lungs can hold, may improve with time, exercise, and treatment. What are the causes? There are many possible causes of acute respiratory failure, including: Lung injury. Chest injury or damage to the ribs or tissues near the lungs. Lung conditions that affect the flow of air and blood into and out of the lungs, such as pneumonia, acute respiratory distress syndrome, and cystic fibrosis. Medical conditions, such as strokes or spinal cord injuries, that affect the muscles and nerves that control breathing. Blood infection (sepsis). Inflammation of the pancreas (pancreatitis). A blood clot in the lungs (pulmonary embolism). A large-volume blood transfusion. Swain. Near-drowning. Seizure. Smoke inhalation. Reaction to medicines. Alcohol or drug overdose. What increases the risk? This condition is more likely to develop in people who have: A blocked airway. Asthma. A condition or disease that damages or weakens the muscles, nerves, bones, or tissues that are involved in breathing. A serious infection. A health problem that blocks the unconscious reflex that is involved in breathing, such as hypothyroidism or sleep apnea. A lung injury or trauma. What are the signs or symptoms? Trouble breathing is the main symptom of acute respiratory failure. Symptoms may also include: Rapid breathing. Restlessness or anxiety. Skin, lips, or fingernails that appear blue (cyanosis). Rapid heart rate. Abnormal heart rhythms (arrhythmias). Confusion or changes in behavior. Tiredness or loss of energy. Feeling sleepy or having a loss of consciousness. How is this diagnosed? Your health care provider can diagnose acute respiratory failure with a medical history and physical exam. During the exam, your health care provider will listen to your heart and check for crackling or wheezing sounds in your lungs. Your may also have tests to confirm the diagnosis and determine what is causing respiratory failure. These tests may include: Measuring the amount of oxygen in your blood (pulse oximetry). The measurement comes from a small device that is placed on your finger, earlobe, or toe. Other blood tests to measure blood gases and to look for signs of infection. Sampling your cerebral spinal fluid or tracheal fluid to check for infections. Chest X-ray to look for fluid in spaces that should be filled with air. Electrocardiogram (ECG) to look at the heart's electrical activity. How is this treated? Treatment for this condition usually takes places in a hospital intensive care unit (ICU). Treatment depends on what is causing the condition. It may include one or more treatments until your symptoms improve. Treatment may include: Supplemental oxygen. Extra oxygen is given through a tube in the nose, a face mask, or a kimble. A device such as a continuous positive airway pressure (CPAP) or bi-level positive airway pressure (BiPAP or BPAP) machine. This treatment uses mild air pressure to keep the airways open. A mask or other device will be placed over your nose or mouth. A tube that is connected to a motor will deliver oxygen through the mask. Ventilator. This treatment helps move air into and out of the lungs. This may be done with a bag and mask or a machine. For this treatment, a tube is placed in your windpipe (trachea) so air and oxygen can flow to the lungs. Extracorporeal membrane oxygenation (ECMO). This treatment temporarily takes over the function of the heart and lungs, supplying oxygen and removing carbon dioxide. ECMO gives the lungs a chance to recover. It may be used if a ventilator is not effective. Tracheostomy. This is a procedure that creates a hole in the neck to insert a breathing tube. Receiving fluids and medicines. Rocking the bed to help breathing. Follow these instructions at home: Take tnul-gsz-xwjaukz and prescription medicines only as told by your health care provider. Return to normal activities as told by your health care provider. Ask your health care provider what activities are safe for you. Keep all follow-up visits as told by your health care provider. This is important. How is this prevented? Treating infections and medical conditions that may lead to acute respiratory failure can help prevent the condition from developing. Contact a health care provider if: You have a fever. Your symptoms do not improve or they get worse. Get help right away if: You are having trouble breathing. You lose consciousness. Your have cyanosis or turn blue. You develop a rapid heart rate. You are confused. These symptoms may represent a serious problem that is an emergency. Do not wait to see if the symptoms will go away. Get medical help right away. Call your local emergency services (911 in the [place] Do not drive yourself to the hospital. This information is not intended to replace advice given to you by your health care provider. Make sure you discuss any questions you have with your health care provider. Document Released: 05/20/2014 Document Revised: 04/27/2018 Document Reviewed: 11/30/2016 [employer] Patient Education 2020 [employer]. Follow Up Care 12/10/2024 23:38:17 With:GIRMA CORREA APRN-[facility] Address: [address] [facility] [place] [address] [phone] When: Unknown Comments:Please call to schedule with your PCP when you discharge from [facility]. With:NANI QUINTANA DO, Orthopedic Address: [address], [place] [address] [phone] When:2-4 days Comments:Please call to schedule to have the external fixator removed. [facility] 12-13-2024 Note Discharge Instructions Thank you for allowing [facility] to assist you with your healthcare needs. The following is important discharge information regarding your hospital visit. Your Care Team [facility] Your Diagnosis Acute respiratory failure with hypoxia Bacteremia Chest pain CHF with cardiomyopathy COPD exacerbation HTN (hypertension) Morbid obesity with BMI of 40.0-44.9, adult Paroxysmal atrial fibrillation Sheltered homelessness Shortness of breath Type 2 diabetes mellitus with hyperlipidemia What to do next Follow Up Appointments Follow Up with GIRMA CORREA APRN-[facility] Where:[address] [facility] [place] [address] [phone] Additional Information: Please call to schedule with your PCP when you discharge from [facility]. Follow Up with NANI QUINTANA DO Orthopedic When:Within 2-4 days Where:[address], [place] [address] [phone] Additional Information: Please call to schedule to have the external fixator removed. The Following Activity and Diet Have Been Ordered for You Transfer of Care Activity - Ordered -- As instructed by therapy, 12/13/24 8:55:00 EDT Transfer of Care Diet - Ordered -- Type of Diet: Regular Diet, 12/13/24 8:55:00 EDT The Following Treatments Have Been Ordered for You Discharge Labs No qualifying data available. Discharge Radiology No qualifying data available. Other Therapies Transfer of Care OT - Ordered -- Reason for therapy: weakness, 12/13/24 8:55:00 EDT Transfer of Care PT - Ordered -- Reason for therapy: Weakness, 12/13/24 8:55:00 EDT Post Acute Orders Transfer of Care Admission Level of Care - Ordered -- Level of Care SNF, 12/13/24 8:55:23 EDT Transfer of Care Code Status - Ordered -- Full Code, Constant Order Transfer of Care Orders Electronically Signed By - Ordered -- 12/13/24 8:55:00 EDT, NARESH MORENO APRN-[facility] Transfer of Care Oxygen Therapy - Ordered -- Oxygen (CONTINUOUS), Mobile in the Home, Nasal Cannula, 2 liters per minute, 999 month(s), 12/13/24 8:55:00 EDT Transfer of Care Prognosis - Ordered -- Fair, Patient Aware: Yes Transfer of Care Rehab Potential - Ordered -- Rehab potential fair, 12/13/24 8:55:23 EDT Someone Will Contact You Regarding These [...] Much When Why Instructions Last Dose New predniSONE (predniSONE 20 mg oral tablet) 2 tab(s) by mouth Once a day with a meal Duration: 1 Days 12/13/24 0835AM Unchanged albuterol (albuterol 2.5 mg/ 3 mL (0.083%) inhalation solution) 3 Milliliter by inhalation Every 6 hours 12/13/24 Unchanged allopurinol (allopurinol 100 mg oral tablet) 1 tab(s) by mouth Once a day 12/13/24 0835AM Unchanged bempedoic acid (Nexletol 180 mg oral tablet) 1 tab(s) by mouth Once a day NA Unchanged budesonide-formoterol (Symbicort 80 mcg-4.5 mcg/ inh Inhaler) 2 puff(s) by inhalation Two (2) times a day Duration: 90 Days 12/13/24 0605AM Unchanged cetirizine (cetirizine 10 mg oral tablet) 1 tab(s) by mouth Every day Duration: 90 Days NA Unchanged dofetilide (Tikosyn 250 mcg oral capsule) 1 cap by mouth Two (2) times a day 12/13/24 0540AM Unchanged dulaglutide (Trulicity Pen 1.5 mg/ 0.5 mL subcutaneous solution) 1.5 Milligram Subcutaneous Every week Duration: 90 Days NA Unchanged DULoxetine (DULoxetine 20 mg oral delayed release capsule) 1 cap by mouth Once a day 12/13/24 0835AM Unchanged hydrOXYzine (Vistaril 25 mg oral capsule) 1 cap by mouth Four (4) times a day as needed for as needed for anxiety Duration: 30 Days NA Unchanged metoprolol (Toprol-XL 100 mg oral tablet, extended release) 1 tab(s) by mouth Two (2) times a day Shortness of breath Duration: 90 Days do not crush or chew 12/13/24 0835AM Unchanged omeprazole (omeprazole 40 mg oral delayed release capsule) 1 cap by mouth Two (2) times a day before a meal. 12/13/24 0540AM Unchanged potassium chloride (Potassium Chloride (Eqv-K-Tab) 20 mEq oral tablet, extended release) 1 tab(s) by mouth Once a day Take with food 12/13/24 0835AM Unchanged pravastatin (pravastatin 40 mg oral tablet) 1 tab(s) by mouth Once a day NA Unchanged rivaroxaban (Xarelto 20 mg oral tablet) 1 tab(s) by mouth Daily at bedtime 12/12/24 0539PM Unchanged spironolactone (spironolactone 25 mg oral tablet) 1 tab(s) by mouth Once a day Duration: 90 Days 12/13/24 0835AM Unchanged tiZANidine (tiZANidine 2 mg oral tablet) 1 tab(s) by mouth Every 8 hours as needed for as needed for muscle spasm Duration: 7 Days 12/12/24 0914PM Unchanged traZODone (traZODone 100 mg oral tablet) 1 tab(s) by mouth Daily at bedtime 12/12/24 0908PM What How Much When Comments Stop Taking acetaminophen (Tylenol) 1,000 Milligram by mouth Every 4 hours as needed for as needed for pain Please take this list to your next doctor s visit. Bring all medications you take, including over the counter medications, herbals and other supplements with you to your doctor s visit. Patients and families are reminded to discard old lists and to update any records with all medication providers or retail pharmacies. Education Materials Acute Respiratory Failure, Adult Acute respiratory failure occurs when there is not enough oxygen passing from your lungs to your body. When this happens, your lungs have trouble removing carbon dioxide from the blood. This causes your blood oxygen level to drop too low as carbon dioxide builds up. Acute respiratory failure is a medical emergency. It can develop quickly, but it is temporary if treated promptly. Your lung capacity, or how much air your lungs can hold, may improve with time, exercise, and treatment. What are the causes? There are many possible causes of acute respiratory failure, including: Lung injury. Chest injury or damage to the ribs or tissues near the lungs. Lung conditions that affect the flow of air and blood into and out of the lungs, such as pneumonia, acute respiratory distress syndrome, and cystic fibrosis. Medical conditions, such as strokes or spinal cord injuries, that affect the muscles and nerves that control breathing. Blood infection (sepsis). Inflammation of the pancreas (pancreatitis). A blood clot in the lungs (pulmonary embolism). A large-volume blood transfusion. Swain. Near-drowning. Seizure. Smoke inhalation. Reaction to medicines. Alcohol or drug overdose. What increases the risk? This condition is more likely to develop in people who have: A blocked airway. Asthma. A condition or disease that damages or weakens the muscles, nerves, bones, or tissues that are involved in breathing. A serious infection. A health problem that blocks the unconscious reflex that is involved in breathing, such as hypothyroidism or sleep apnea. A lung injury or trauma. What are the signs or symptoms? Trouble breathing is the main symptom of acute respiratory failure. Symptoms may also include: Rapid breathing. Restlessness or anxiety. Skin, lips, or fingernails that appear blue (cyanosis). Rapid heart rate. Abnormal heart rhythms (arrhythmias). Confusion or changes in behavior. Tiredness or loss of energy. Feeling sleepy or having a loss of consciousness. How is this diagnosed? Your health care provider can diagnose acute respiratory failure with a medical history and physical exam. During the exam, your health care provider will listen to your heart and check for crackling or wheezing sounds in your lungs. Your may also have tests to confirm the diagnosis and determine what is causing respiratory failure. These tests may include: Measuring the amount of oxygen in your blood (pulse oximetry). The measurement comes from a small device that is placed on your finger, earlobe, or toe. Other blood tests to measure blood gases and to look for signs of infection. Sampling your cerebral spinal fluid or tracheal fluid to check for infections. Chest X-ray to look for fluid in spaces that should be filled with air. Electrocardiogram (ECG) to look at the heart's electrical activity. How is this treated? Treatment for this condition usually takes places in a hospital intensive care unit (ICU). Treatment depends on what is causing the condition. It may include one or more treatments until your symptoms improve. Treatment may include: Supplemental oxygen. Extra oxygen is given through a tube in the nose, a face mask, or a kimble. A device such as a continuous positive airway pressure (CPAP) or bi-level positive airway pressure (BiPAP or BPAP) machine. This treatment uses mild air pressure to keep the airways open. A mask or other device will be placed over your nose or mouth. A tube that is connected to a motor will deliver oxygen through the mask. Ventilator. This treatment helps move air into and out of the lungs. This may be done with a bag and mask or a machine. For this treatment, a tube is placed in your windpipe (trachea) so air and oxygen can flow to the lungs. Extracorporeal membrane oxygenation (ECMO). This treatment temporarily takes over the function of the heart and lungs, supplying oxygen and removing carbon dioxide. ECMO gives the lungs a chance to recover. It may be used if a ventilator is not effective. Tracheostomy. This is a procedure that creates a hole in the neck to insert a breathing tube. Receiving fluids and medicines. Rocking the bed to help breathing. Follow these instructions at home: Take qekl-tyc-dcseddi and prescription medicines only as told by your health care provider. Return to normal activities as told by your health care provider. Ask your health care provider what activities are safe for you. Keep all follow-up visits as told by your health care provider. This is important. How is this prevented? Treating infections and medical conditions that may lead to acute respiratory failure can help prevent the condition from developing. Contact a health care provider if: You have a fever. Your symptoms do not improve or they get worse. Get help right away if: You are having trouble breathing. You lose consciousness. Your have cyanosis or turn blue. You develop a rapid heart rate. You are confused. These symptoms may represent a serious problem that is an emergency. Do not wait to see if the symptoms will go away. Get medical help right away. Call your local emergency services (911 in the [place] Do not drive yourself to the hospital. This information is not intended to replace advice given to you by your health care provider. Make sure you discuss any questions you have with your health care provider. Document Released: 05/20/2014 Document Revised: 04/27/2018 Document Reviewed: 11/30/2016 [employer] Patient Education 2020 [employer] Additional Information VACCINATE! IT SAVES LIVES! Members of the community who have not yet received the COVID-19 vaccine and would like to receive it can visit one of [facility] vaccine clinics. There are many vaccine clinic locations within the [facility]. For locations and available times, please visit https://gettheshot.coronavirus.o hio.gov/. It is important to note that some COVID mobile vaccine clinics are held outdoors and may be canceled in rainy or stormy conditions. To learn more about pediatric vaccinations (ages 5-11), we invite you to visit the [employer] webpage. https://[email or web address].org/p ages/0616-Qfxux-Coqfxkpbyqz-Freq eoyfeo-Elskl-Exfqszuyb.html To learn more about the COVID-19 vaccine, we invite you to visit the CDC website for a list of frequently asked questions.https://www.cdc.gov/co ronavirus/2019-ncov/vaccines/faq .html [facility] Patient Portal Access Instructions: Stay connected with your healthcare team and access your personal medical information anytime with the [facility] Patient Portal. Please follow the directions below to create your [facility] account: 1.Access the email account you provided upon registration to the hospital/physician office.2.Look for an invitation email from [facility].3.Open the email and access the invitation link: Accept Invitation to [facility].4.Fill in the required orr to create your account. To access your account, visit [email or web address]. Click the blue button labeled Access Patient [...] you will allow to register on the [facility] Patient Portal for access to your information. You can also access the [facility] Patient Portal on the [facility] frida. Simply click on Patient Portal and then log into your account. If you would like to receive a full copy of your medical records, please contact the [facility] Medical Records Department by calling [phone], Monday through Monday between 8 a.m. and [...] Call your local pharmacy or go to [email or web address] to find one close to you.3.Make use of household items: Use cat litter or old coffee grounds to dispose medications if other options are not available. Mix your drugs with these household products, seal them in an airtight container and throw it into the garbage. Call [facility]: [phone] to be sure your drugs can be [...] a CHART COPY. Signatures Patient Education Materials Acute Respiratory Failure, Adult Medication Leaflets My discharge plan and instructions have been reviewed and explained to me and I,CARLOS ALBERTO KELLEY JR understand my current condition and have read and understand these discharge instructions. I have received a written copy of the plan/instructions. If I have questions, I am aware that I should contact my doctor. 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 Signature: Date/Time: Relationship to Patient: Witness Name/Signature: Date/Time: [facility] 12-13-2024 Pastoral care Progress note Pastoral Care Note Entered On: 12/13/2024 9:35 EDT Performed On: 12/13/2024 9:33 EDT by Carlos Alberto Nesbitt Pastoral Care Type of Pastoral Visit : Follow up visit Spiritual Care Visit Initiated by : Olive Brine Tester Spiritual Care Reason for Visit : General Spiritual Assessment : Hopeful, Grateful/Thankful, Positive Image of God Spiritual Care Emotional Assessment : Happy, Thoughtful/Reflective, Relationship Issues Spiritual Care Intervention : Active listening, Words of Encouragement, Prayer with Patient/Family Spiritual Outcomes : Identifies Reasons for Hope Spiritual Plan of Care : No Further Action Pastoral Care Comments : patient is happy to report that he was accepted back to SNF and is hopeful about health improvements; pt is without a definite living situation but speaks of a couple of options that could work out for him; pt affirms torrie in God and seeing answers to prayer; pt welcomes presence and prayer for support Pastoral Care Visit Length : 15 minute(s) Carlos Alberto Nesbitt - 12/13/2024 9:33 EDT Digitally Signed by Carlos Alberto Nesbitt on 12/13/2024 09:33 AM [facility] 12-12-2024 Note Date of Service 12/12/2024 Chief Complaint COPD exacerbation Subjective 54-year-old male with past medical history significant for COPD/asthma, KOFFI, tachycardia induced cardiomyopathy with recovered EF, atrial fibrillation anticoagulated with Xarelto, type 2 diabetes mellitus. Patient presented to [facility] emergency department 12/10/2024 with dyspnea and chest pain. He was given aspirin by EMS. He is homeless and has been living with a friend but does not feel safe in this situation. Of note, patient had a right bimalleolar ankle fracture and has a right ankle external fixator in place. This was done by Dr. Quintana 10/17/2024. He was due to have this removed 12/11/2024. In the emergency department vital signs were initially stable and then he was placed on O2 via nasal cannula at 2 L with improvement in oxygenation. He had no leukocytosis. D-dimer was elevated at 593. CMP mostly unremarkable. Lipase was 15. BNP 1099, troponins were negative at 10 x 2. EKG showed normal sinus rhythm. X-ray chest showed low lung volumes with hypoventilatory changes, no consolidation. CTA chest negative for PE. Patient was given inhaled bronchodilators and subsequently admitted. Overnight vital signs have remained stable. He has been on room air since shortly after admission. Labs unremarkable. Patient states that overall he is feeling well today. He is very tearful and thankful regarding possible SNF placement. On exam today, pt denies any fever or chills. No headache or dizziness. Denies chest pain, palpitations. No cough, dyspnea, sputum production. Denies N/V/D/C. No melena/hematochezia. No dysuria or hematuria. No new paresthesias. Objective Vitals and Measurements T: 36.7 C (Oral) TMIN: 36.3 C (Oral) TMAX: 36.7 C (Oral) HR: 69 (Monitored) RR: 20 BP: 141/83 SpO2: 93% Intake and Output 7AM Yesterday to 7AM Today Intake and Output (Last 24 hours) Intake Output Urine Voided 1000.00 Urine Count 1.00 Total Summary Total Intake 0.00 Total Output 1000.00 Fluid Balance -1000.00 Physical Exam GEN: Appears chronically ill CHEST: Normal S1 and S2. Rhythm is regular. Clear to auscultation, without rales, rhonchi, wheezing. ABD: Positive bowel sounds x 4 quads. Soft, nondistended, nontender. EXT: RLE external fixator in place, neurovascularly intact NEURO: Sensation grossly intact SKIN: Skin color normal PSYCH: The mental examination revealed the patient was alert and oriented x 4 Weight Dosing Weight: 139.8 kg (12/11/24) Dosing Weight: 130.8 kg (12/10/24) Medications Medications (28) Active Scheduled: (18) albuterol 0.083% Soln UD (2.5mg/3 mL) 2.5 mg 3 mL, Inhalation, QIDRT allopurinol 100 mg tablet 100 mg 1 tab(s), Oral, qDay budesonide 0.5 mg/2 mL Susp UD 0.5 mg 2 mL, Inhalation, BIDRT cephalexin monohydrate 250 mg capsule 500 mg 2 cap(s), Oral, QID DME 1, Other, Once dofetilide 125 mcg capsule 250 mcg 2 cap(s), Oral, BID duloxetine [address] Capsule 20 mg 1 cap(s), Oral, qDay guaifenesin 600 mg ER 1,200 mg 2 tab(s), Oral, q12h loratadine 10 mg Tablet 10 mg 1 tab(s), Oral, qDay metoprolol succinate 50 mg ER tablet 100 mg 2 tab(s), Oral, BID Nexletol 180mg tab 180mg/tab(s), Oral, qDay pantoprazole 20 mg EC tablet 40 mg 2 tab(s), Oral, qDayAC potassium chloride 20 mEq ER tablet 20 mEq 1 tab(s), Oral, qDay pravastatin 40 mg tablet 40 mg 1 tab(s), Oral, qDay predniSONE 20 mg tablet 40 mg 2 tab(s), Oral, qDayM rivaroxaban 20 mg tablet 20 mg 1 tab(s), Oral, with supper spironolactone 25 mg tablet 25 mg 1 tab(s), Oral, qDay traZODONE 50 mg Tablet 100 mg 2 tab(s), Oral, qHS Continuous: (0) PRN: (10) acetaminophen 325 mg Tablet 650 mg 2 tab(s), Oral, q4h acetaminophen 325 mg Tablet 650 mg 2 tab(s), Oral, q4h albuterol - ipratropium 2.5 mg-0.5 mg/3 mL Inhal Lisa UD 3 mL, Inhalation, q2hRT benzonatate 100 mg Capsule 100 mg 1 cap(s), Oral, TID calcium carbonate 500 mg Chewable 500 mg 1 tab(s), Chewed, TID dextrose 50% Solution Disp syringe 50 mL 25 gram(s) 50 mL, IV Push, AsDirected hydroxyzine pamoate 25 mg capsule 25 mg 1 cap(s), Oral, QID melatonin 3 mg tablet 6 mg 2 tab(s), Oral, qHS ondansetron 2 mg/ 1 mL 2 mL INJ 4 mg 2 mL, IV Push, q4h tiZANidine 2 mg tablet 2 mg 1 tab(s), Oral, q8h Lab Results 12/12 05:36 Glucose Level: 115 H Sodium Level: 142 Potassium Level: 3.8 BUN: 15 Creatinine Lvl (s): 0.69 Imaging Results and Diagnostics XR Chest 1 View Result Date: December 12, 2024 Verified By: MICK LEGGETT MD CLINICAL STATEMENT: IMPRESSION: Interval mild vascular congestion with stable cardiomegaly. I have personally reviewed the images of this examination and agree with theresident's findings and interpretation. CT Angiography Chest w/ Contrast Result Date: December 11, 2024 Verified By: MICK LEGGETT MD CLINICAL STATEMENT: IMPRESSION: No evidence of pulmonary embolism to the level of segmental pulmonaryarteries. Stable cardiomegaly. Pulmonary artery dilatation can be seen with pulmonaryhypertension. Cirrhotic liver and splenomegaly. I have personally reviewed the images of this examination and agree with theresident's findings and interpretation. XR Chest 1 View Result Date: December 11, 2024 Verified By: MICK LEGGETT MD CLINICAL STATEMENT: IMPRESSION: Low lung volumes with hypoventilatory changes. Mild to moderatecardiomegaly. No focal consolidation. Preliminary Report was Dictated by a Resident Assessment/Plan 1. COPD exacerbation 2. Acute respiratory failure with hypoxia 3. HTN (hypertension) 4. Paroxysmal atrial fibrillation 5. Type 2 diabetes mellitus with hyperlipidemia 6. Bacteremia COPD exacerbation Continue prednisone 40 mg daily x 5 days total. Continue inhaled bronchodilators. Encourage incentive spirometer. Acute hypoxic respiratory failure resolved. Adequate oxygenation on room air. HTN- SBP goal 140 or less. Continue home antihypertensives. Paroxysmal atrial fibrillation rate controlled, in normal sinus rhythm. Continue home medications. Type 2 diabetes mellitus- Glucose goal 180 or less and avoid hypoglycemia. Corrective sliding scale insulin. ADA diet. Bacteremia patient was noted to have MSSA bacteremia and was discharged on 11/28 with 14 days of cefdinir. Today would be his last dose. Right lower extremity external fixator in place. This was supposed to be removed on 12/11 however patient was admitted to the hospital. He will need to follow-up with Dr. Quintana to have this removed. Patient was evaluated by therapy services with recommendation for SNF. He has been accepted at [facility] and pre-CERT has been started today. Patient is medically optimized for discharge. DVT prophylaxis: Xarelto Code Status: Full code Plan of care discussed with patient. All questions answered. Patient verbalizes understanding is agreeable to plan of care. This dictation was performed using voice recognition software and may include grammatical and/or spelling errors. Anticipated Date of Discharge Medically optimized for discharge. Awaiting insurance precert Time Spent 40 minutes Digitally Signed by NARESH MORENO on 12/12/2024 12:39 PM [facility] 12-12-2024 Pastoral care Progress note Pastoral Care Note Entered On: 12/12/2024 9:52 EDT Performed On: 12/12/2024 9:48 EDT by Carlos Alberto Nesbitt Pastoral Care Type of Pastoral Visit : Initial visit Spiritual Care Visit Initiated by : Olive Brine Tester Spiritual Care Reason for Visit : General Spiritual Assessment : Hopeful, Grateful/Thankful, Positive Image of God Spiritual Care Emotional Assessment : Accepting of Situation, Family Dynamics Issues, Tearful, Expressing Loneliness Spiritual Care Intervention : Active listening, Validation of Feelings, Supportive presence, Explore Spiritual Needs, Explore Emotional Needs, Prayer with Patient/Family, Grief Work Spiritual Outcomes : Identifies Reasons for Hope, Expresses Torrie, Set realistic goals Spiritual Plan of Care : Visit as Requested Pastoral Care Comments : patient is welcoming and talkative; pt speaks of her health and injury but his concerns are more emotional and relational; pt indicates that his four months ago; pt was living with a relative that was a difficult situation and interpersonal relationships were unhealthy; pt hopes to go back to an SNF for a time and then possibly make a move to other family; pt expresses his torrie in God and wants to get back to a former christianity; pt welcomes someone to talk with and for prayer to be given Pastoral Care Visit Length : 20 minute(s) Carlos Alberto Nesbitt - 12/12/2024 9:48 EDT Digitally Signed by Carlos Alberto Nesbitt on 12/12/2024 09:48 AM [facility] 12-12-2024 Note Exam Date Time Procedure Performing Provider Status 12/12/24 5:56 AM XR Chest 1 View MICK LEGGETT MD; Aut h (Verified) [id number] ORIGINAL EXAMINATION: ONE XRAY VIEW OF THE CHEST12/12/2024 5:56 am COMPARISON: 12/11/2024 HISTORY: ORDERING SYSTEM PROVIDED HISTORY: Reason for Exam: Cough FINDINGS: Stable cardiomegaly. Interval mild vascular congestion. No large pleural effusion or pneumothorax. IMPRESSION: Interval mild vascular congestion with stable cardiomegaly. I have personally reviewed the images of this examination and agree with the resident's findings and interpretation. Interpreted by: Mick Leggett MD Preliminary Report By: Jordon Levin Electronically signed By Mick Leggett MD Dictated Date: 12/12/2024 6:08:15 AM Prelim Date: 12/12/2024 6:09:53 AM Sign Date: 12/12/2024 6:38:29 AM Ordering Provider: VENITA BROTHERS [facility]07-16-2025 Note. MICRO - Microbiology PROCEDURE: Streptococcus Pneumoniae Urine Antig [^1 *1] SOURCE: Urine BODY SITE: COLLECTED DATE/TIME: 12/11/2024 10:41 EDT RECEIVED DATE/TIME: 12/11/2024 15:14 EDT START DATE/TIME: 12/11/2024 15:14 EDT FREE TEXT SOURCE: FINAL REPORTS Final Report [] Verified Date/Time/Personnel: 12/11/2024 15:39 EDT Presumptive negative for pneumococcal pneumonia, suggesting no current or recent pneumococcal infection. Infection due to Strep pneumoniae cannot be ruled out since the antigen present in the sample may be below the detection limit of the test. Interpretive Data ^1: Streptococcus Pneumoniae Urine Antig This test has not been evaluated on patients taking antibiotics for greater than 24 hours or on patients who have recently completed an antibiotic regimen. The accuracy of this test has not been proven in young children. Performing Locations *1: This test was performed at: [address], [facility] , [facility]07-16-2025 Note. MICRO - Microbiology PROCEDURE: Legionella Urine Ag [*1] SOURCE: Urine BODY SITE: COLLECTED DATE/TIME: 12/11/2024 10:41 EDT RECEIVED DATE/TIME: 12/11/2024 15:14 EDT START DATE/TIME: 12/11/2024 15:14 EDT FREE TEXT SOURCE: FINAL REPORTS Final Report [] Verified Date/Time/Personnel: 12/11/2024 15:39 EDT Presumptive negative for L. pneumophila serogroup 1 antigen in urine, suggesting no recent or current infection. Legionnaire's disease cannot be ruled out since other serogroups and species may also cause disease. Performing Locations *1: This test was performed at: [address], [address] [place], [place] [id number] Evaluation + Plan noteExtracted from: Title:History and Physical Author:ERLIN ALANIZ Date:12/11/24 1. COPD exacerbation Acute, new onset, accompanied by hypoxia, 87% on room air on arrival to ED. Continue prednisone 40 mg PO daily x 5 days. Continue duoneb aerosols as needed and scheduled. May use supplemental oxygen as needed to maintain oxygen saturations above 92%, wean as able. Patient on room air this morning with improved oxygenation. Patient has no evidence for infection on labs or imaging so will hold off on antibiotics. Repeat CBC and BMP in the am. 2. Acute respiratory failure with hypoxia Acute, new onset, resolved. Plan as above. 3. Chest pain Acute, new onset, resolved. Troponin negative x 2. EKG stable. Patient reported his chest pain had resolved by arrival to ED and has not returned since. He was just evaluated by cardiology earlier this morning at [facility]. Repeat troponin in the am. 5. CHF with cardiomyopathy Chronic, appears euvolemic. Patient just had an echo in 09/2024 which revealed EF 55-60%, unknown diastolic function. He had a NELDA in 11/28/2024 due to admission for positive blood cultures. The positive blood cultures were most likely caused by the external fixator and patient was advised to have it removed in 2 weeks, was scheduled for today. He also had an event monitor in 10/2024. 6. HTN (hypertension) Chronic. Continue current antihypertensives. SBP goal of 140 or less. 7. Morbid obesity with BMI of 40.0-44.9, adult Chronic, complicating all aspects of care. Encouraged diet and exercise. 8. Paroxysmal atrial fibrillation Paroxysmal. Continue Tikosyn and xarelto as at home. 9. Type 2 diabetes mellitus with hyperlipidemia Chronic. ADA diet. Blood glucose goal of 180 or less and avoid hypoglycemia. 10. Sheltered homelessness Patient had been living with a friend in deplorable conditions. He no longer feels safe in that environment. 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 DVT prophylaxis with Xarelto. Code status: Full Code. Labs, diagnostic test and progress notes reviewed as noted in HPI. Plan of care discussed with patient. All questions answered. Patient verbalizes understanding and is agreeable with plan of care. This case was discussed with collaborating physician, Dr. Angel Garces. 77 minutes spent reviewing past diagnostic tests, reviewing lab results, vital sign trends, medical history, reviewing medications and ordering home medications, examining patient, discussed plan of care with care team, collaborating with physician, and documenting in chart. 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 History of Present Illness Patient is a 54-year-old male, who follows with Girma Correa CNP with a past medical history significant for COPD, asthma, CHF with cardiomyopathy, hypertension, atrial fibrillation, type 2 diabetes, and KOFFI, presented to [facility] emergency department with the chief complaint of d yspnea and chest pain. Patient developed left-sided chest pain, dyspnea and diaphoresis about 30 minutes prior to presenting to the ED. He contacted EMS who administered 4 baby aspirin en route to the hospital. Upon arrival, he stated that his chest pain was better but he continued to feel very short of breath. He also reports a nonproductive cough. Patient is basically homeless. He had been staying with a friend but does not feel comfortable in that situation any longer. EMS reported the condition of the home he was in is extremely dirty. He also has an external fixator that was supposed to be removed at [facility] today. Patient denies any fever, chills, chest pain, abdominal pain, nausea or dysuria. In the emergency department, x-ray of the chest revealed ow lung volumes with hypoventilatory changes; mild to moderate cardiomegaly; no focal consolidation. CTA of the chest revealed no evidence of pulmonary embolism to the level of segmental pulmonary arteries. Stable cardiomegaly. Pulmonary artery dilatation can be seen with pulmonary hypertension. Cirrhotic liver and splenomegaly. EKG revealed sinus rhythm. CBC unremarkable. BMP significant for glucose 165 and sodium 134. Troponin negative x 2. BNP 1099. Patient was administered 125 mg solumedrol IV and breathing treatments in the ED. Thecase was discussed with the ED physician who recommended admission for treatment of COPD exacerbation with hypoxia. Patient transferred to telemetry for further evaluation and treatment. We will start prednisone 40 mg PO daily x 5 days. Continue duoneb aerosols as needed and scheduled. Consult placed to PT and OT to evaluate and treat. Repeat CBC and BMP in the am. Patient seen and evaluated this morning. He denies any chest pain this morning and feels that his breathing is back to baseline. He states that he no longer feels safe in his current home and would like to go to [facility]. He was just admitted to [facility] with atrial fibrillation RVR and bacteremia. Patient was evaluated by cardiology and subsequently converted to sinus rhythm. He did have a NELDA to rule out vegetation - it was negative. ID felt that the bacteremia was due to the external fixator on his right ankle. Patient was supposed to have the external fixatorremoved today. Patient has scratches over the dorsal surface of his left foot from the external fixator. Per therapy, he is supposed to wear a post-op shoe on the left foot. Therapy is planning to evaluate patient this afternoon. Physical exam unremarkable. He is agreeable to plan of care. All questions answered. Review of Systems Review of Systems: Reviewed in detail, including general health, HEENT, cardiovascular, respiratory, gastrointestinal, genitourinary, endocrine, musculoskeletal, neurologic, vascular, skin, and psychiatric. All are negative except for those listed in the History of Present Illness. Physical Exam Vitals and Measurements T: 36.8 C (Oral) TMIN: 36.4 C (Oral) TMAX: 36.8 C (Oral) HR: 64 RR: 16 BP: 153/86 SpO2: 92% HT: 175cm WT: 139.8 kg BMI: 45.65 Weight Dosing Weight: 139.8 kg (12/11/24) Dosing Weight: 130.8 kg (12/10/24) General: No acute distress. Patient is alert and appropriate, chronically ill- appearing, unkempt. Skin: No rash. Skin is warm, dry. Scratches noted on the dorsal surface of the left foot from his external fixator. HEENT: Head is normocephalic, atraumatic. Pupils are equal, round and reactive. Neck: Supple. No lymphadenopathy, thyromegaly. Lungs: Bilaterally clear but diminished without crepitation or wheeze. Unlabored. Heart: Heart is regular rhythm, S1, S2. No murmurs, gallops or rubs. Abdomen: Abdomen is soft, nontender, obese. Bowels sounds present in all quadrants. Extremities: No clubbing, cyanosis, generalized edema. Peripheral pulses palpable. No calf tenderness. Neurological: Patient is awake and alert to person, place and time. Following simple commands, moving all extremities. Lab Results 12/11 00:09 WBC: 8.8 Hgb: 14.0 Hct: 43.0 Platelet: 208 Neutrophil %: 78.7 H Glucose Level: 165 H Sodium Level: 134 L Potassium Level: 3.6 BUN: 10 Creatinine Lvl (s): 0.82 Imaging Results and Diagnostics CT Angiography Chest w/ Contrast Result Date: December 11, 2024 Verified By: MICK LEGGETT MD CLINICAL STATEMENT: IMPRESSION: No evidence of pulmonary embolism to the level of segmental pulmonary arteries. Stable cardiomegaly. Pulmonary artery dilatation can be seen with pulmonary hypertension. Cirrhotic liver and splenomegaly. I have personally reviewed the images of this examination and agree with the resident's findings and interpretation. XR Chest 1 View Result Date: December 11, 2024 Verified By: MICK LEGGETT MD CLINICAL STATEMENT: IMPRESSION: Low lung volumes with hypoventilatory changes. Mild to moderate cardiomegaly. No focal consolidation. Preliminary Report was Dictated by a Resident EKG EC12/11/24: Sinus rhythm Left axis deviation Abnormal R-wave progression, late transition Compared to ECG at 11/24/2024 15:28:54 Electronic Signature: JINA DELORESAJ STONE 12/11/2024 02:07:48 Assessment/Plan 1. COPD exacerbation Acute, new onset, accompanied by hypoxia, 87% on room air on arrival to ED. Continue prednisone 40 mg PO daily x 5 days. Continue duoneb aerosols as needed and scheduled. May use supplemental oxygen as needed to maintain oxygen saturations above 92%, wean as able. Patient on room air this morning with improved oxygenation. Patient has no evidence for infection on labs or imaging so will hold off on antibiotics. Repeat CBC and BMP in the am. 2. Acute respiratory failure with hypoxia Acute, new onset, resolved. Plan as above. 3. Chest pain Acute, new onset, resolved. Troponin negative x 2. EKG stable. Patient reported his chest pain had resolved by arrival to ED and has not returned since. He was just evaluated by cardiology earlier this morning at [facility]. Repeat troponin in the am. 5. CHF with cardiomyopathy Chronic, appears euvolemic. Patient just had an echo in 09/2024 which revealed EF 55-60%, unknown diastolic function. He had a NELDA in 11/28/2024 due to admission for positive blood cultures. The positive blood cultures were most likely caused by the external fixator and patient was advised to have it removed in 2 weeks, was scheduled for today. He also had an event monitor in 10/2024. 6. HTN (hypertension) Chronic. Continue current antihypertensives. SBP goal of 140 or less. 7. Morbid obesity with BMI of 40.0-44.9, adult Chronic, complicating all aspects of care. Encouraged diet and exercise. 8. Paroxysmal atrial fibrillation Paroxysmal. Continue Tikosyn and xarelto as at home. 9. Type 2 diabetes mellitus with hyperlipidemia Chronic. ADA diet. Blood glucose goal of 180 or less and avoid hypoglycemia. 10. Sheltered homelessness Patient had been living with a friend in deplorable conditions. He no longer feels safe in that environment. 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 DVT prophylaxis with Xarelto. Code status: Full Code. Labs, diagnostic test and progress notes reviewed as noted in HPI. Plan of care discussed with patient. All questions answered. Patient verbalizes understanding and is agreeable with plan of care. This case was discussed with collaborating physician, Dr. Angel Garces. 77 minutes spent reviewing past diagnostic tests, reviewing lab results, vital sign trends, medicalhistory, reviewing medications and ordering home medications, examining patient, discussed plan of care with care team, collaborating with physician, and documenting in chart. Problem List/Past Medical History Ongoing Asthma exacerbation [...] 100 mg = 1 tab(s), Oral, qDay cephalexin 500 mg oral tablet 500 mg = 1 tab(s), Oral, QID cetirizine 10 mg oral tablet 10 mg = 1 tab(s), Oral, Daily DULoxetine 20 mg oral delayed release capsule 20 mg = 1 cap(s), Oral, qDay Nexletol 180 mg oral tablet 180 mg = 1 tab(s), Oral, qDay omeprazole 40 mg oral delayed release capsule 40 mg = 1 cap(s), Oral, BID Potassium Chloride (Eqv-K-Tab) 20 mEq oral tablet, [...] subcutaneous solution 1.5 mg, Subcutaneous, qWeek Tylenol 1,000 mg, PRN, Oral, q4h Vistaril 25 mg oral capsule 25 mg = 1 cap(s), PRN, Oral, QID Xarelto 20 mg oral tablet 20 mg = 1 tab(s), Oral, qHS Allergies Statins myalgia Social History Alcohol Use: Past., 07/11/2022 Home/Environment Living situation: Home/Independent. Domestic Concerns: None. Lives In: Single level home., 10/17/2024 Nutrition/Health Type of diet: Regular. Caffeine intake amount: no caffeine. Appetite Good. Eating Difficulties None., 10/17/2024 Substance Abuse Use: Never., 07/11/2022 Tobacco Nicotine Use: Former smoker, quit more than 30 days ago., 11/24/2024 Nicotine Use: Former smoker, quit more than 30 days ago, former chewer of tobacco. Type: Oral (Snuff, Chew). Smokeless Tobacco Use: Former smokeless tobacco user, quit more than 30 days ago, stopped snuff October 2022., 01/12/2024 Family History Cancer: Father. Heart disease: Mother and Grandparent. Stroke: Father. Health Status Family Member(s) Immunizations pneumococcal 13-valent conjugate vaccine: 0.5 unknown unit (04/12/22) SARS-CoV-2 (COVID-19) mRNA-1273 vaccine: 0 unknown unit (09/11/20) SARS-CoV-2 (COVID-19) mRNA-1273 vaccine: 0 unknown unit (08/14/20) Code Status Code Status - Ordered -- 12/11/24 4:13:00 EDT, Full Code, Constant Order Digitally Signed by ERLIN ALANIZ on 12/11/2024 12:58 PM Digitally Signed by ANGEL GARCES DO on 12/11/2024 03:06 PM [facility]07-16-2025 Note* Exam Date Time Procedure Performing Provider Status 12/11/24 2:[address] Angiography Chest w/ Contrast MICK WAGNER MD; Auth (Verified) [id number] ORIGINAL EXAMINATION: CTA OF THE CHEST 12/11/2024 2:39 am TECHNIQUE: CTA of the chest was performed after the administration of intravenous contrast. Multiplanar reformatted images are provided for review. MIP images are provided for review. Automated exposure control, iterative reconstruction, and/or weight based adjustment of the mA/kV was utilized to reduce the radiation dose to as low as reasonably achievable. COMPARISON: CT chest 11/24/2024 HISTORY: ORDERING SYSTEM PROVIDED HISTORY: Reason for Exam: Pulmonary embolism (PE) suspected, low to intermediate prob, positive D-dimer FINDINGS: Pulmonary Arteries: Pulmonary arteries are suboptimally opacified for evaluation. No evidence of intraluminal filling defect to suggest pulmonary embolism to the level of segmental pulmonary arteries. Main pulmonary artery is dilated measuring 3.6 cm.. Mediastinum: No evidence of mediastinal lymphadenopathy.Cardiomegaly. No significant pericardial effusion. Nonaneurysmal thoracic aorta. Lungs/pleura: Bibasilar atelectasis.. No focal consolidation or pulmonary edema. No evidence of pleural effusion or pneumothorax. Upper Abdomen: Cirrhotic appearance of liver and splenomegaly. Soft Tissues/Bones: No acute bone or soft tissue abnormality. Degenerative changes of the spine. Gynecomastia IMPRESSION: No evidence of pulmonary embolism to the level of segmental pulmonary arteries. Stable cardiomegaly. Pulmonary artery dilatation can be seen with pulmonary hypertension. Cirrhotic liver and splenomegaly. I have personally reviewed the images of this examination and agree with the resident's findings and interpretation. Interpreted by: Mick Leggett MD Preliminary Report By: Jordon Levin Electronically signed By Mick Leggett MD Dictated Date: 12/11/2024 2:42:05 AM Prelim Date: 12/11/2024 2:45:49 AM Sign Date: 12/11/2024 3:29:36 AM Ordering Provider: DELORES MURO [facility]07-16-2025 Note* Exam Date Time Procedure Performing Provider Status 12/11/24 12:31 AM XR Chest 1 View MICK LEGGETT MD; Au th (Verified) [id number] ORIGINAL EXAMINATION: ONE XRAY VIEW OF THE CHEST12/11/2024 12:31 am COMPARISON: 11/24/2024 HISTORY: ORDERING SYSTEM PROVIDED HISTORY: Reason for Exam: cough, sob FINDINGS: The cardiomediastinal contours are stable, mild to moderate cardiomegaly.Low lung volumes with hypoventilatory changes. No focal consolidation, large pleural effusion or pneumothorax. Stable osseous structures IMPRESSION: Low lung volumes with hypoventilatory changes. Mild to moderate cardiomegaly. No focal consolidation. Preliminary Report was Dictated by a Resident Interpreted by: Mick Leggett MD Preliminary Report By: Jordon Levin Electronically signed By Mick Leggett MD Dictated Date: 12/11/2024 12:36:36 AM Prelim Date: 12/11/2024 12:37:27 AM Sign Date: 12/11/2024 1:19:48 AM Ordering Provider: DELORES MURO [facility]07-15-2025 Note* Exam Date Time Procedure Performing Provider Status 12/10/24 11:55 PM EKG [ED AOH] - CV DELORES MURO DO; Auth (Verified) ECG Final Report Sinus rhythm Left axis deviation Abnormal R-wave progression, late transition Compared to ECG at 11/24/2024 15:28:54 Electronic Signature: DELORES MURO DO 12/11/2024 02:07:48 [facility]07-09-2025 Hospital Discharge instructions Patient Education 12/04/2024 17:09:41 Ankle Fracture Ankle Fracture You have an ankle fracture. This means that one or more of the bones that make up the ankle joint are broken. This often causes pain, swelling, and bruising. A fracture is treated with a splint, cast, or special boot. It will take about 4 to 6 weeks for thefracture to heal. Surgery may be needed to fix severe injuries. Home care You will be given a splint, cast, or boot to prevent movement at the ankle joint. Unless you were told otherwise, use crutches or a walker. Don t put weight on the injured leg until cleared by your healthcare provider to do so. Crutches and walkers can be rented at many pharmacies and surgical or orthopedic supply stores. Don t put weight on a splint. It will break. Keep your leg raised to reduce pain and swelling. When sleeping, place a pillow under the injured leg. When sitting, support the injured leg so it is often. This is very important during the first 48hours. Apply an ice pack over the injured area for no more than 15 to 20 minutes. Do this every 3 to 6 hours for the first 24 to 48 hours. Keep using ice packs 3 to 4 times a day for the next 2 to 3 days, then as needed to ease pain and swelling. To make an ice pack, put ice cubes in a plastic bag that seals at the top. Wrap the bag in a clean, thin towel or cloth. Never put ice or an ice pack directly on the skin. You can place the ice pack directly over the cast or splint. As the ice melts, be careful that the cast or splint doesn t get wet. Keep the cast, splint, or boot completely dry at all times. Bathe with your cast, splint, or boot out of the water, protected with [address] 1 bag outside of the other. Tape each bag with duct tape at the top end or use rubber bands. Water can still leak in. So it's best to keep the cast, splint, or boot away from water. If a boot or fiberglass cast or splint gets wet, dry it with a humanities department chair on a cool setting. You may use gvqp-nzk-ydlkepq pain medicine to control pain, unless another pain medicine was prescribed. Talk with your provider before using these medicines if you have chronic liver or kidney disease or ever had a stomach ulcer or GI (gastrointestinal) bleeding. Follow-up care Follow up with your healthcare provider in 1 week, or as advised. This is to be sure the bone is healing correctly. If you were given a splint, it may be changed to a cast or boot at your follow-up visit. If X-rays were taken, you will be told of any new findings that may affect your care. When to seek medical advice Call your healthcare provider right away if any of these occur: The plaster cast or splint becomes wet or soft The fiberglass cast or splint stays wet for more than 24 hours There is increased tightness, sore areas, or pain under the cast or splint Your toes become swollen, cold, blue, numb, or tingly The cast or splint becomes loose The cast or splint has a bad smell The cast or splint develops cracks or breaks [id number] [employer]. [address] [place] [address]. All rights reserved. This information is not intended as a substitute for professional medical care. Always follow yourhealthcare professional's instructions. Follow Up Care 12/04/2024 16:40:24 With:GIRMA CORREA Address: [place] [address]- [phone] When:2-4 days [facility] 07-09-2025 Note Discharge Instructions Thank you for allowing [facility] to assist you with your healthcare needs. The following is importantdischarge information regarding your hospital visit. Diagnosis from Today's Visit Visit for wound check What to Do Next Instructions from Your Care Team No qualifying data available. Post Acute Orders No qualifying data available. You Need to Schedule the Following Appointments Follow Up with GIRMA CORREA When:Within 2-4 days Where:[place] [address]- [phone] Allergies Statins myalgia Medications Please ask your [...] times a day Duration: 90 Days Unchanged cephalexin (cephalexin 500 mg oral tablet) 1 tab(s) by mouth Four (4) times a day Duration: 14 Days Unchanged cetirizine (cetirizine 10 mg oral [...] meal. Unchanged potassium chloride (Potassium Chloride (Eqv-K-Tab) 20 [...] medication providers or retail pharmacies. Education Materials Ankle Fracture You have an ankle fracture. This means that one or more of the bones that make up the ankle joint are broken. This often causes pain, swelling, and bruising. A fracture is treated with a splint, cast, or special boot. It will take about 4 to 6 weeks for thefracture to heal. Surgery may be needed to fix severe injuries. Home care You will be given a splint, cast, or boot to prevent movement at the ankle joint. Unless you were told otherwise, use crutches or a walker. Don t put weight on the injured leg until cleared by your healthcare provider to do so. Crutches and walkers can be rented at many pharmacies and surgical or orthopedic supply stores. Don t put weight on a splint. It will break. Keep your leg raised to reduce pain and swelling. When sleeping, place a pillow under the injured leg. When sitting, support the injured leg so it is often. This is very important during the first 48hours. Apply an ice pack over the injured area for no more than 15 to 20 minutes. Do this every 3 to 6 hours for the first 24 to 48 hours. Keep using ice packs 3 to 4 times a day for the next 2 to 3 days, then as needed to ease pain and swelling. To make an ice pack, put ice cubes in a plastic bag that seals at the top. Wrap the bag in a clean, thin towel or cloth. Never put ice or an ice pack directly on the skin. You can place the ice pack directly over the cast or splint. As the ice melts, be careful that the cast or splint doesn t get wet. Keep the cast, splint, or boot completely dry at all times. Bathe with your cast, splint, or boot out of the water, protected with [address] 1 bag outside of the other. Tape each bag with duct tape at the top end or use rubber bands. Water can still leak in. So it's best to keep the cast, splint, or boot away from water. If a boot or fiberglass cast or splint gets wet, dry it with a humanities department chair on a cool setting. You may use imsq-alk-kasstfx pain medicine to control pain, unless another pain medicine was prescribed. Talk with your provider before using these medicines if you have chronic liver or kidney disease or ever had a stomach ulcer or GI (gastrointestinal) bleeding. Follow-up care Follow up with your healthcare provider in 1 week, or as advised. This is to be sure the bone is healing correctly. If you were given a splint, it may be changed to a cast or boot at your follow-up visit. If X-rays were taken, you will be told of any new findings that may affect your care. When to seek medical advice Call your healthcare provider right away if any of these occur: The plaster cast or splint becomes wet or soft The fiberglass cast or splint stays wet for more than 24 hours There is increased tightness, sore areas, or pain under the cast or splint Your toes become swollen, cold, blue, numb, or tingly The cast or splint becomes loose The cast or splint has a bad smell The cast or splint develops cracks or breaks [id number] [employer]. [address] [place] [address]. All rights reserved. This information is not intended as a substitute for professional medical care. Always follow yourhealthcare professional's instructions. Additional Information VACCINATE! IT SAVES LIVES! Members of the community who have not yet received the COVID-19 vaccine and would like to receive it can visit one of [facility] vaccine clinics. There are many vaccine clinic locations within the [facility]. For locations and available times, please visit www.gettheshot.coronavirus.[place].gov/. It is important to note that some COVID mobile vaccine clinics are held outdoors and may be canceled in rainy or stormy conditions. To learn more about pediatric vaccinations (ages 5-11), we invite you to visit the [facility] webpage. https://www.[facility].org/pages/0956-Ejtkk-Fexodbxwjfd-Npjdvpheej-Nqvtx-Duu stions.htmlTo learn more about the COVID-19 vaccine, we invite you to visit the CDC website for a list of frequently asked questions. https://www.cdc.gov/coronavirus/2019-ncov/vaccines/faq.html [facility] Patient Portal Access Instructions: Stay connected with your healthcare team and access your personal medical information anytime with the [facility] Patient Portal. If you would like a full copy of your medical records please contact the [facility] Medical Records Department Monday through Monday between 8a.m. and 4:30p.m. Please follow the directions below to access the portal: 1.Access the email account you provided upon registration to the [facility].2.Look for an invitation email from [facility].3.Open the email and access the invitation link: Accept Invitation to [facility].Fill in the required orr to create your account. Sign into [email or web address] with your username and password that [...] you will allow to register on the [facility] Patient Portal for access to your information. You can also access the [facility] Patient Portal on the [employer] frida. Simply click on Health Records under HealthData and then click on the [employer] logo. HOW TO SAFELY DISPOSE OF PRESCRIPTION [...] Call your local pharmacy or go to http://Silversky.Play for Job/4G8Ro1s to find one close to you.3.Make use of household items: Use cat litter or old coffee grounds to dispose medications if other options arenot available. Mix your drugs with these household products, seal them in an airtight container andthrow it into the garbage. Call [facility]: [phone] to be sure your drugs can be [...] a CHART COPY Signatures Patient Education Materials Ankle Fracture Medication Leaflets My discharge plan and instructions have been reviewed and explained to me and I,CARLOS ALBERTO KELLEY JR understand my current condition and have read and understand these discharge instructions. I have received a written copy of the plan/instructions. If I have questions, I am aware that I should contact my d octor. 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 Signature: Date/Time: Relationship to Patient: Witness Name/Signature: Date/Time: [facility] Note. MICRO - Microbiology PROCEDURE: Blood Culture (bacterial) [*1] SOURCE: Blood BODY SITE: Anticubital, Left COLLECTED DATE/TIME: 11/26/2024 10:52 EDT RECEIVED DATE/TIME: 11/26/2024 11:16 EDT START DATE/TIME: 11/26/2024 11:16 EDT FREE TEXT SOURCE: peds bottle FINAL REPORTS Final Report [] Verified Date/Time/Personnel: 12/01/2024 11:59 EDT Blood Culture: No Growth at 5 days. PRELIMINARY REPORTS Preliminary Report [] Verified Date/Time/Personnel: 11/26/2024 12:00 EDT Culture has been received in lab and is no growth to date. Routine cultures are held for 5 days. Performing Locations *1: This test was performed at: [address], [address] [place] [address] [id number] Note. MICRO - Microbiology PROCEDURE: Blood Culture (bacterial) [*1] SOURCE: Blood BODY SITE: Anticubital, Right COLLECTED DATE/TIME: 11/26/2024 10:52 EDT RECEIVED DATE/TIME: 11/26/2024 11:16 EDT START DATE/TIME: 11/26/2024 11:16 EDT FREE TEXT SOURCE: peds bottle FINAL REPORTS Final Report [] Verified Date/Time/Personnel: 12/01/2024 11:59 EDT Blood Culture: No Growth at 5 days. PRELIMINARY REPORTS Preliminary Report [] Verified Date/Time/Personnel: 11/26/2024 12:00 EDT Culture has been received in lab and is no growth to date. Routine cultures are held for 5 days. Performing Locations *1: This test was performed at: [address], [address] [place] [address] [id number] Note. MICRO - Microbiology PROCEDURE: Blood Culture (bacterial) [*1] SOURCE: Blood BODY SITE: COLLECTED DATE/TIME: 11/25/2024 08:57 EDT RECEIVED DATE/TIME: 11/25/2024 09:07 EDT START DATE/TIME: 11/25/2024 09:07 EDT FREE TEXT SOURCE: peds bottle FINAL REPORTS Final Report [] Verified Date/Time/Personnel: 11/30/2024 09:59 EDT Blood Culture: No Growth at 5 days. PRELIMINARY REPORTS Preliminary Report [] Verified Date/Time/Personnel: 11/25/2024 09:59 EDT Culture has been received in lab and is no growth to date. Routine cultures are held for 5 days. Performing Locations *1: This test was performed at: [facility], [address] [place] [address], [facility] , [facility]07-03-2025 Cardiology Progress note Date of Service 11/28/2024 Subjective No acute complaints today. Pt tolerated NELDA well. Objective Vitals and Measurements T: 36 C (Skin) TMIN: 36 C (Skin) TMAX: 37.1 C (Oral) HR: 68 (Monitored) RR: 18 BP: 109/55 SpO2: 94%WT: 132.4 kg Intake and Output 7AM Yesterday to 7AM Today Intake and Output (Last 24 hours) Intake Oral Intake 625.00 Administration Information 200.00 Output Urine Output Initial 700.00 Stool Count 1.00 Urine Count 7.00 Total Summary Total Intake 825.00 Total Output 700.00 Fluid Balance 125.00 Physical Exam General: AAOX3, NAD, obese HEENT: Anicteric sclera, MMM Neck: Trachea midline, no JVD appreciated CVS: RRR, normal S1/S2, no murmurs/rubs/gallops Lung: CTAB, no wheezes/rhonchi/rales Abd: Soft, NT/ND Extrem: WWP, no LE edema. RLE with external fixation rods. Skin: Warm, Intact Neuro: AAOX3, spontaneous movement of all extremities Psych: Appropriate mood & affect Weight Current Weight Dosing Weight: 132.4 kg (11/28/24) Current Weight: 132.4 kg (11/28/24) Dosing Weight: 134.7 kg (11/27/24) Current Weight: 134 kg (11/27/24) Medications Medications (22) Active Scheduled: (14) albuterol 0.083% Soln UD [...] Soln (3 mL) Give 0-10 units/dose, Subcutaneous, achs metoprolol succinate 100 mg ER tablet 100 mg 1 tab(s), Oral, BID Nexletol 180 mg oral tablet 180 mg, Oral, qDay omeprazole [address] capsule 40 mg 1 cap(s), Oral, BID rivaroxaban 20 mg tablet 20 mg 1 tab(s), Oral, with supper spironolactone 25 mg tablet 25 mg 1 tab(s), Oral, qDayM traZODONE 100 mg Tablet 100 mg 1 tab(s), Oral, qHS Continuous: (0) PRN: (8) acetaminophen 325 mg Tablet 650 mg 2 tab(s), Oral, q4h dextrose 50% Solution Disp syringe 50 mL 12.5 g 25 mL, IV Push, AsDirected dextrose 50% Solution Disp syringe 50 mL 25 gram(s) 50 mL, IV Push, AsDirected glucagon recombinant 1 mg 1 mg 1 mL, Intramuscular, AsDirected HYDROmorphone 0.5 mg/0.5 mL syringe 0.25 mg 0.25 mL, IV Push, q3h ipratropium 0.02% (0.5mg/2.5mL) UD 0.5 mg 2.5 mL, Inhalation, q4hRT metoprolol 1 mg/mL (5mL) vial 5 mg 5 mL, IV Push, q5min ondansetron 2 mg/ 1 mL 2 mL INJ 4 mg 2 mL, IV Push, q4h Lab Results 11/28 07:58 WBC: 5.8 Hgb: 13.8 Hct: 42.1 Platelet: 195 Neutrophil %: 70.8 Glucose Level: 100 Sodium Level: 137 Potassium Level: 4.0 BUN: 9.0 Creatinine Lvl (s): 0.77 Imaging Results and Diagnostics XR Tibia/Fibula 2 Views Right Result Date: November 25, 2024 Verified By: BEAU COLEY MD CLINICAL STATEMENT: IMPRESSION: No acute fracture or dislocation of the proximal tibia or fibula. Externalfixator. I have personally reviewed the images of this examination and agree with theresident's findings and interpretation. XR Ankle Minimum 3 Views Right Result Date: November 25, 2024 Verified By: TRACE FIERRO MD CLINICAL STATEMENT: IMPRESSION: Given differences in technique, no significant change in the osseousstructures from prior exam. XR Ankle Minimum 3 Views Left Result Date: November 25, 2024 Verified By: BEAU COLEY MD CLINICAL STATEMENT: IMPRESSION: Stable alignment of distal fibula/lateral malleolar fracture with callusformation.. I have personally reviewed the images of this examination and agree with theresident's findings and interpretation. XR Chest 1 View Result Date: November 24, 2024 Verified By: MELISSA SANTOS MD CLINICAL STATEMENT: IMPRESSION: Mild cardiomegaly, no acute process. EKG No qualifying data available. 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 Presented for shortness of breath/palpitations. Found to be in Afib RVR. Has since converted back to sinus rhythm. A-fib which may have been exacerbated by his hypomagnesemia which has been corrected. Patient is back in sinus rhythm. Will obtain a twelve-lead. No need for repeat 2D echo as he just had 1 month agowhich showed normal LV function. Continue Tikosyn. Cardiology reconsulted November 26 due to patient having MSSA bacteremia. Completed NELDA today which was negative for any findings of endocarditis. Formal report pending. Cardiology will sign off. Please reach out if any cardiac questions. Rest of management per primaryteam/ID. Digitally Signed by MIKEL MCDANIEL DO on 11/28/2024 11:46 AM [id number] Hospital Discharge instructions Patient Education 11/28/2024 15:26:42 Atrial Fibrillation, Quro-ug-Ngkj Atrial Fibrillation Atrial fibrillation is a type [...] Follow these instructions at home: Medicines Take loob-sxw-omakdcx and prescription medicines only as told by [...] 02/21/2009 Document Revised: 07/19/2018 Document Reviewed: 07/06/2018 [employer] Patient Education 2020 [employer] Follow Up Care 11/24/2024 07:01:00 With:NANI QUINTANA DO Orthopedic Address: [address] [place] [place] [phone] When:12/06/2024 09:00:00 Comments:Please Dr. Quintana's office to schedule appointment for follow up to discuss and schedule possible ex-fix removal. With:GIRMA CORREA Address: [address] [place] [address] [phone] When:1-2 days Comments:Please call the office to schedule a hospital follow up appointment. [facility] 07-03-2025 Note Discharge Instructions Thank you for allowing [facility] to assist you with your healthcare needs. The following is importantdischarge information regarding your hospital visit. Your Care Team GIRMA CORREA Your Diagnosis Ankle fracture Atrial fibrillation Cardiomyopathy Depression DM2 (diabetes mellitus, type 2) GERD (gastroesophageal reflux disease) HTN (hypertension) Positive blood cultures Shortness of breath What to do next Follow Up Appointments Follow Up with GIRMA CORREA When:Within 1-2 days Where:[address] [place] [address]- [phone] Additional Information: Please call the office to schedule a hospital follow up appointment. Follow Up with NANI QUINTANA DO Orthopedic When:12/06/2024 09:00 AM EDT Where:[address] [facility], [place] [address]- [phone] Additional Information: Please Dr. Quintana's office to schedule appointment for follow up to discuss and schedule possible ex-fix removal. The Following Activity and Diet Have Been Ordered for You Discharge Activity - Ordered -- Resume your pre-hospitalization activity, 11/28/24 13:21:00 EDT Discharge Diet - Ordered -- No changes were made to your diet during your hospital stay. Please resume your pre hospitalization diet on discharge., 11/28/24 13:21:00 EDT The Following Equipment Has Been Ordered for You Discharge Home Equipment Discharge Wound Care - Ordered -- Leg, lower right, Change Dressing: bid, 1/2 strength hydrogen peroxide around pin site. wrap xeroform guaze around pins. wrap with guaze over xeroform guaze, 11/28/24 14:08:00 EDT The Following Treatments Have Been Ordered [...] Much When Why Instructions Last Dose New cephalexin (cephalexin 500 mg oral tablet) 1 tab(s) by mouth Four (4) times a day Duration: 14 Days Pickup at [facility]/pharmacy #[id number] Changed potassium chloride (Potassium Chloride (Eqv-K-Tab) 20 mEq oral tablet, extended release) 1 tab(s) by mouth Once a day Take with food Unchanged acetaminophen (Tylenol) 1,000 Milligram by mouth [...] by mouth Daily at bedtime Pharmacy Information [facility]/pharmacy #[id number]: [address], [place] [id number] [phone] Please take this list to your next [...] Follow these instructions at home: Medicines Take vcme-ifq-vjzmavv and prescription medicines only as told by [...] 02/21/2009 Document Revised: 07/19/2018 Document Reviewed: 07/06/2018 [employer] Patient Education 2020 [employer] Additional Information VACCINATE! IT SAVES LIVES! Members of the community who have not yet received the COVID-19 vaccine and would like to receive it can visit one of [facility] vaccine clinics. There are many vaccine clinic locations within the [facility]. For locations and available times, please visit https://gettheshot.coronavirus.[place].gov/. It is important to note that some COVID mobile vaccine clinics are held outdoors and may be canceled in rainy or stormy conditions. To learn more about pediatric vaccinations (ages 5-11), we invite you to visit the [facility] webpage. [email or web address].[email or web address]/[email or web address]-Svkynwgodzm-Vpzzbokkog-Ehluv-Vhy stions.htmlTo learn more about the COVID-19 vaccine, we invite you to visit the CDC website for a list of frequently asked questions.https://www.cdc.gov/coronavirus/2019-ncov/vaccines/faq.html [facility] Patient Portal Access Instructions: Stay connected with your healthcare team and access your personal medical information anytime with the [facility] Patient Portal. Please follow the directions below to create your [facility] account: 1.Access the email account you provided upon registration to the hospital/physician office.2.Look for an invitation email from [facility].3.Open the email and access the invitation link: AcceptInvitation to [facility].4.Fill in the required orr to create your account. To access your account, visit [employer]. Click the blue button labeled Access Patient Portal and then log in with the username and password that you created in the steps above. You will be able to view your test results, lab results, a summary of your visits, upcoming appointments and more. There is also a convenient messaging option where you can send secure messages to your [employer]. In addition, you will have the ability to download any documents or summaries to your computer and/or send the information securely to a physician. Remember that your healthcare information is confidential, so carefully consider who you will allowto register on the [facility] Patient Portal for access to your information. You can also access the [facility] Patient Portal on the [employer] frida. Simply click on Patient Portal and then log into your account. If you would like to receive a full copy of your medical records, please contact the [facility] Medical Records Department by calling [phone], Monday through Monday between 8 a.m. and [...] Call your local pharmacy or go to http://tatum/[email or web address] to find one close to you.3.Make use of household items: Use cat litter or old coffee grounds to dispose medications if other options arenot available. Mix your drugs with these household products, seal them in an airtight container andthrow it into the garbage. Call [facility]: [phone] to be sure your drugs can be [...] COPY. Signatures Patient Education Materials Atrial Fibrillation, Pujz-ab-Gkzg Medication Leaflets My discharge plan and instructions have been reviewed and explained to me and I,CARLOS ALBERTO KELLEY JR understand my current condition and have read and understand these discharge instructions. I have received a written copy of the plan/instructions. If I have questions, I am aware that I should contact my d octor. 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 Signature: Date/Time: Relationship to Patient: Witness Name/Signature: Date/Time: [id number] Discharge summary Date of Service 11/28/2024 Discharge Diagnosis 1. Atrial fibrillation with RVR 2. Ankle fracture s/p external fixator previously 3. MSSA bacteremia 4. Cardiomyopathy 5. Type 2 diabetes mellitus 6. GERD 7. Hypertension 8. Depression Hospital Course 54-year-old gentleman with a past medical history of COPD, tobacco abuse, atrial fibrillation, type2 diabetes mellitus, recent ankle fracture with external fixator in place. Patient presented to [facility] as a transfer from [facility] on 11/24/2024 with complaints of palpitations and found to be in atrial fibrillation with RVR. Patient was admitted with cardiology consultation. Patient was also noted to have hypomagnesemia and this was repleted. Patient did convert to sinus rhythm. Patient was continued on home Tikosyn as well as beta-kp anticoagulation. Patient was noted to have 2/2 blood cultures positive for gram-positive cocci and eventually identified as MSSA. Patient's repeat cultures remain negative at this time. Patient was placed on IV cefazolin and possible source was his external fixator. NELDA was performed with no evidence of endocarditis. Plan to complete 2 weeks of Keflex as per ID recommendations. Patient to have an external fixator removed in 2 weeks as well. Patient to follow-up with primary care provider as well as orthopedics as previously scheduled. Allergies Statins myalgia Consults Consult to Physician - Ordered -- 11/24/24 13:02:00 EDT, BENNETT SMITH MD, Routine, A. Fib RVR Consult to Physician - Ordered -- 11/25/24 14:57:00 EDT, NANI QUINTANA DO, Routine, fixator pin care, bacteremia Imaging Results and Diagnostics XR Tibia/Fibula 2 Views Right Result Date: November 25, 2024 Verified By: BEAU COLEY MD CLINICAL STATEMENT: IMPRESSION: No acute fracture or dislocation of the proximal tibia or fibula. Externalfixator. I have personally reviewed the images of this examination and agree with theresident's findings and interpretation. XR Ankle Minimum 3 Views Right Result Date: November 25, 2024 Verified By: TRACE FIERRO MD CLINICAL STATEMENT: IMPRESSION: Given differences in technique, no significant change in the osseousstructures from prior exam. XR Ankle Minimum 3 Views Left Result Date: November 25, 2024 Verified By: BEAU COLEY MD CLINICAL STATEMENT: IMPRESSION: Stable alignment of distal fibula/lateral malleolar fracture with callusformation.. I have personally reviewed the images of this examination and agree with theresident's findings and interpretation. XR Chest 1 View Result Date: November 24, 2024 Verified By: MELISSA SANTOS MD CLINICAL STATEMENT: IMPRESSION: Mild cardiomegaly, no acute process. Objective Vitals and Measurements T: 36 C (Skin) TMIN: 36 C (Skin) TMAX: 37.1 C (Oral) HR: 68 (Monitored) RR: 18 BP: 109/55 SpO2: 94%WT: 132.4 kg Weight Current Weight Dosing Weight: 132.4 kg (11/28/24) Current Weight: 132.4 kg (11/28/24) Dosing Weight: 134.7 kg (11/27/24) Current Weight: 134 kg (11/27/24) No acute distress on exam. Lying in bed. Lungs clear to auscultation bilaterally. Abdomen soft, nontender. Bowel sounds are appreciable. External fixator in place, no surrounding erythema or warmth. Alert and oriented x 3. Cooperative and pleasant on exam. Moving all extremities. Code Status Code Status - Ordered -- 11/24/24 12:19:00 EDT, Full Code, Constant Order Admission Date 11/24/2024 Discharge Date 11/28/2024 Patient Instructions Please take antibiotics as prescribed. Make sure to finish the entire course of antibiotics. Pleasefollow-up with orthopedics as scheduled. Please follow-up with your primary care provider after hospitalization as well. Medications New Prescription cephalexin (cephalexin 500 mg oral tablet)1 tab(s) by mouth four (4) times a day for 14 Days. Refills: 0. Changed potassium chloride (Potassium Chloride (Eqv-K-Tab) 20 mEq oral tablet, extended release)1 tab(s) bymouth once a day. Take with food. Refills: 3. Unchanged acetaminophen (Tylenol)1,000 Milligram by mouth every 4 hours as needed as needed for pain. albuterol [...] capsule)1 cap by mouth once a day. hydrOXYzine (Vistaril 25 mg oral capsule)1 cap [...] a day. before a meal.. Refills: 0. pravastatin (pravastatin 40 mg oral tablet)1 tab(s) [...] Refills: 3. Follow Up Follow Up with GIRMA CORREA When:Within 1-2 days Where:[address] [facility] [place] [address]- [phone] Additional Information: Please call the office to schedule a hospital follow up appointment. Follow Up Appointments No qualifying data available. Follow Up Labs/Studies Discharge Labs No Follow-up Labs Discharge Studies No Follow-up Studies Discharge Diet Discharge Diet - Ordered -- No changes were made to your diet during your hospital stay. Please resume your pre hospitalization diet on discharge., 11/28/24 13:21:00 EDT Discharge Activity Discharge Activity - Ordered -- Resume your pre-hospitalization activity, 11/28/24 13:21:00 EDT Condition on Discharge Good Readmission Risk/Palliative Score LACE Score: 10 (11/25/24 14:44:00) Palliative Total Score: 1 (11/25/24 14:44:00) Discharge Disposition Home Information Provided To Patient Time Spent 50 minutes Digitally Signed by MAXIME COLLINS DO on 11/28/2024 01:25 PM [facility] [id number] Infectious disease Progress note Date of Service 11/28/2024 Chief Complaint MSSA bacteremia Subjective Patient seen and independently evaluated the bedside. He is resting in bed comfortably in no acute distress. No acute complaints. Return from his NELDA. No fever, chills or night sweats. No nausea, vomiting or diarrhea. No abdominal pain Objective Vitals and Measurements T: 36 C (Skin) TMIN: 36 C (Skin) TMAX: 37.1 C (Oral) HR: 68 (Monitored) RR: 18 BP: 109/55 SpO2: 94%WT: 132.4 kg Intake and Output 7AM Yesterday to 7AM Today Intake and Output (Last 24 hours) Intake Oral Intake 625.00 Administration Information 200.00 Output Urine Output Initial 700.00 Stool Count 1.00 Urine Count 7.00 Total Summary Total Intake 825.00 Total Output 700.00 Fluid Balance 125.00 Physical Exam General: No acute distress. Alert and Appropriate Skin: External fixator with crusting over the lateral aspects of the ankle with mild erythema. HEENT: Head is normocephalic and atraumatic. No lesions. Pupils equal in size. Extraocular movements within normal limits. Nose: No septal deviation. Mouth: Oropharynx mucosa is without lesion. Neck: Supple. No lymphadenopathy, thyromegaly noted. No carotid bruit heard. Lungs: Respirations are unlabored, bilaterally clear breath sounds with no crepitation or wheeze. Cardiovascular: Heart is regular rhythm, S1S2, no murmur Abdomen: Abdomen is soft, nontender. Bowel sounds positive all four quadrants Extremities: No clubbing, cyanosis or edema. Peripheral pulses palpable. Adequate peripheral circulation. Neurological: The patient is awake, oriented to person, place and time. Following simple commands, moving all extremities. Weight Current Weight Dosing Weight: 132.4 kg (11/28/24) Current Weight: 132.4 kg (11/28/24) Dosing Weight: 134.7 kg (11/27/24) Current Weight: 134 kg (11/27/24) Medications Medications (22) Active Scheduled: (14) albuterol 0.083% Soln UD (2.5mg/3 mL) 2.5 mg 3 mL, Inhalation, QIDRT allopurinol 100 mg tablet 100 mg 1 tab(s), Oral, qDay atorvastatin 10 mg tablet 10 mg 1 tab(s), Oral, qHS budesonide 0.25 mg/2 mL Susp UD 0.25 mg 2 mL, Inhalation, BIDRT cephalexin monohydrate 500 mg Capsule 500 mg 1 cap(s), Oral, QID dofetilide 250 mcg capsule 250 mcg 1 cap(s), Oral, BID duloxetine [address] Capsule 20 mg 1 cap(s), Oral, qDay insulin lispro 100 units/mL Soln (3 mL) Give 0-10 units/dose, Subcutaneous, achs metoprolol succinate 100 mg ER tablet 100 mg 1 tab(s), Oral, BID Nexletol 180 mg oral tablet 180 mg, Oral, qDay omeprazole [address] capsule 40 mg 1 cap(s), Oral, BID rivaroxaban 20 mg tablet 20 mg 1 tab(s), Oral, with supper spironolactone 25 mg tablet 25 mg 1 tab(s), Oral, qDayM traZODONE 100 mg Tablet 100 mg 1 tab(s), Oral, qHS Continuous: (0) PRN: (8) acetaminophen 325 mg Tablet 650 mg 2 tab(s), Oral, q4h dextrose 50% Solution Disp syringe 50 mL 12.5 g 25 mL, IV Push, AsDirected dextrose 50% Solution Disp syringe 50 mL 25 gram(s) 50 mL, IV Push, AsDirected glucagon recombinant 1 mg 1 mg 1 mL, Intramuscular, AsDirected HYDROmorphone 0.5 mg/0.5 mL syringe 0.25 mg 0.25 mL, IV Push, q3h ipratropium 0.02% (0.5mg/2.5mL) UD 0.5 mg 2.5 mL, Inhalation, q4hRT metoprolol 1 mg/mL (5mL) vial 5 mg 5 mL, IV Push, q5min ondansetron 2 mg/ 1 mL 2 mL INJ 4 mg 2 mL, IV Push, q4h Lab Results 11/28 07:58 WBC: 5.8 Hgb: 13.8 Hct: 42.1 Platelet: 195 Neutrophil %: 70.8 Glucose Level: 100 Sodium Level: 137 Potassium Level: 4.0 BUN: 9.0 Creatinine Lvl (s): 0.77 Imaging Results and Diagnostics XR Tibia/Fibula 2 Views Right Result Date: November 25, 2024 Verified By: BEAU COLEY MD CLINICAL STATEMENT: IMPRESSION: No acute fracture or dislocation of the proximal tibia or fibula. Externalfixator. I have personally reviewed the images of this examination and agree with theresident's findings and interpretation. XR Ankle Minimum 3 Views Right Result Date: November 25, 2024 Verified By: TRACE FIERRO MD CLINICAL STATEMENT: IMPRESSION: Given differences in technique, no significant change in the osseousstructures from prior exam. XR Ankle Minimum 3 Views Left Result Date: November 25, 2024 Verified By: BEAU COLEY MD CLINICAL STATEMENT: IMPRESSION: Stable alignment of distal fibula/lateral malleolar fracture with callusformation.. I have personally reviewed the images of this examination and agree with theresident's findings and interpretation. XR Chest 1 View Result Date: November 24, 2024 Verified By: MELISSA SANTOS MD CLINICAL STATEMENT: IMPRESSION: Mild cardiomegaly, no acute process. EKG No qualifying data available. Assessment/Plan MSSA bacteremia Surgical site infection of the right ankle/external fixator Type 2 diabetes Leukocytosis Patient is a 54-year-old male with history of COPD, atrial fibrillation, type 2 diabetes, recent right ankle fracture with external fixator with scheduled operative repair with orthopedics presents to the hospital from [facility] on 11/24/2024 as a transfer for shortness of breath and palpitations. EKG in the ER consistent with A-fib with RVR. Found to have MSSA bacteremia so ID has been following. #1 high-grade MSSA bacteremia with potential source of soft tissue/skin infection involving the right ankle with external fixator in place. Repeat blood cultures show no growth to date. Discussed with primary team, NELDA is presumably negative for vegetation. He is clinically improving, no fever or leukocytosis. Will transition cefazolin to Keflex 500 mg every 6 hours for 2 weeks with end date of December 09, 2024. ID will sign off. Please call for further questions or concerns Plan of care discussed in depth with patient. All questions answered. Patient verbalized understanding and is agreeable to plan of care. Discussed with my collaborating physician Dr. Te Casey. Any changes to the plan will be added to end as an addendum. Time Spent I spent a total of 41 minutes reviewing the patient s diagnostic labs/tests, seeing and examining the patient and documenting in the medical record, see assessment for further detail. Digitally Signed by ORI TOMLIN on 11/28/2024 12:49 PM Digitally Signed by ORI TOMLIN on 11/28/2024 12:50 PM [facility] [id number] Cardiology Progress note Date of Service 11/28/2024 Subjective No acute complaints today. Pt tolerated NELDA well. Objective Vitals and Measurements T: 36 C (Skin) TMIN: 36 C (Skin) TMAX: 37.1 C (Oral) HR: 68 (Monitored) RR: 18 BP: 109/55 SpO2: 94%WT: 132.4 kg Intake and Output 7AM Yesterday to 7AM Today Intake and Output (Last 24 hours) Intake Oral Intake 625.00 Administration Information 200.00 Output Urine Output Initial 700.00 Stool Count 1.00 Urine Count 7.00 Total Summary Total Intake 825.00 Total Output 700.00 Fluid Balance 125.00 Physical Exam General: AAOX3, NAD, obese HEENT: Anicteric sclera, MMM Neck: Trachea midline, no JVD appreciated CVS: RRR, normal S1/S2, no murmurs/rubs/gallops Lung: CTAB, no wheezes/rhonchi/rales Abd: Soft, NT/ND Extrem: WWP, no LE edema. RLE with external fixation rods. Skin: Warm, Intact Neuro: AAOX3, spontaneous movement of all extremities Psych: Appropriate mood & affect Weight Current Weight Dosing Weight: 132.4 kg (11/28/24) Current Weight: 132.4 kg (11/28/24) Dosing Weight: 134.7 kg (11/27/24) Current Weight: 134 kg (11/27/24) Medications Medications (22) Active Scheduled: (14) albuterol 0.083% Soln UD [...] Soln (3 mL) Give 0-10 units/dose, Subcutaneous, achs metoprolol succinate 100 mg ER tablet 100 mg 1 tab(s), Oral, BID Nexletol 180 mg oral tablet 180 mg, Oral, qDay omeprazole [address] capsule 40 mg 1 cap(s), Oral, BID rivaroxaban 20 mg tablet 20 mg 1 tab(s), Oral, with supper spironolactone 25 mg tablet 25 mg 1 tab(s), Oral, qDayM traZODONE 100 mg Tablet 100 mg 1 tab(s), Oral, qHS Continuous: (0) PRN: (8) acetaminophen 325 mg Tablet 650 mg 2 tab(s), Oral, q4h dextrose 50% Solution Disp syringe 50 mL 12.5 g 25 mL, IV Push, AsDirected dextrose 50% Solution Disp syringe 50 mL 25 gram(s) 50 mL, IV Push, AsDirected glucagon recombinant 1 mg 1 mg 1 mL, Intramuscular, AsDirected HYDROmorphone 0.5 mg/0.5 mL syringe 0.25 mg 0.25 mL, IV Push, q3h ipratropium 0.02% (0.5mg/2.5mL) UD 0.5 mg 2.5 mL, Inhalation, q4hRT metoprolol 1 mg/mL (5mL) vial 5 mg 5 mL, IV Push, q5min ondansetron 2 mg/ 1 mL 2 mL INJ 4 mg 2 mL, IV Push, q4h Lab Results 11/28 07:58 WBC: 5.8 Hgb: 13.8 Hct: 42.1 Platelet: 195 Neutrophil %: 70.8 Glucose Level: 100 Sodium Level: 137 Potassium Level: 4.0 BUN: 9.0 Creatinine Lvl (s): 0.77 Imaging Results and Diagnostics XR Tibia/Fibula 2 Views Right Result Date: November 25, 2024 Verified By: BEAU COLEY MD CLINICAL STATEMENT: IMPRESSION: No acute fracture or dislocation of the proximal tibia or fibula. Externalfixator. I have personally reviewed the images of this examination and agree with theresident's findings and interpretation. XR Ankle Minimum 3 Views Right Result Date: November 25, 2024 Verified By: TRACE FIERRO MD CLINICAL STATEMENT: IMPRESSION: Given differences in technique, no significant change in the osseousstructures from prior exam. XR Ankle Minimum 3 Views Left Result Date: November 25, 2024 Verified By: BEAU COLEY MD CLINICAL STATEMENT: IMPRESSION: Stable alignment of distal fibula/lateral malleolar fracture with callusformation.. I have personally reviewed the images of this examination and agree with theresident's findings and interpretation. XR Chest 1 View Result Date: November 24, 2024 Verified By: MELISSA SANTOS MD CLINICAL STATEMENT: IMPRESSION: Mild cardiomegaly, no acute process. EKG No qualifying data available. 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 Presented for shortness of breath/palpitations. Found to be in Afib RVR. Has since converted back to sinus rhythm. A-fib which may have been exacerbated by his hypomagnesemia which has been corrected. Patient is back in sinus rhythm. Will obtain a twelve-lead. No need for repeat 2D echo as he just had 1 month agowhich showed normal LV function. Continue Tikosyn. Cardiology reconsulted November 26 due to patient having MSSA bacteremia. Completed NELDA today which was negative for any findings of endocarditis. Formal report pending. Cardiology will sign off. Please reach out if any cardiac questions. Rest of management per primaryteam/ID. Digitally Signed by MIKEL MCDANIEL DO on 11/28/2024 11:46 AM [facility] [id number] Note* Exam Date Time Procedure Performing Provider Status 11/28/24 11:04 AM Transesophageal Echo cardiogram - CV FREDDY HARTLEY MD; Auth (Verified) [facility] [id number] Anesthesiology Consult note Patient: CARLOS ALBERTO KELLEY JR Age: 54 years Sex: Male : 1970 Associated Diagnoses: None Author: ROJELIO NORIEGA DO Preoperative Information Greater than 6 hours Anesthesia history Patient's history: negative. Family's history: negative. Review of Systems Ear/Nose/Mouth/Throat: Negative except as documented in history of present illness. Respiratory: Negative except as documented in history of present illness. Cardiovascular: Negative except as documented in history of present illness, R/O infective endocarditis. Gastrointestinal: Negative except as documented in history of present illness. Genitourinary: Negative except as documented in history of present illness. Endocrine: Negative except as documented in history of present illness. Musculoskeletal: Negative except as documented in history of present illness. Integumentary: Negative except as documented in history of present illness. Neurologic: Negative except as documented in history of present illness. Health Status Allergies: Nonallergic Reactions (Selected) Severity Not Documented Statins- Myalgia., Allergies (1) ActiveSeverityReaction Statinsmyalgia Current medications: (Selected) Inpatient Medications Ordered Aldactone: 25 mg, 1 tab(s), Oral, qDayM Atrovent (0.5mg/2.5 mL) inhalation solution: 0.5 mg, 2.5 mL, Inhalation, q4hRT, PRN: Shortness of breath or wheezing Cardizem: 25 mg, 5 mL, IV Push, Once DULoxetine: 20 mg, 1 cap(s), Oral, qDay Dextrose 50% IV Push: 25 gram(s), 50 mL, IV Push, AsDirected, PRN: Low blood sugar Dextrose: 12.5 g, 25 mL, IV Push, AsDirected, PRN: Low blood sugar Dilaudid: 0.25 mg, 0.25 mL, IV Push, q3h, PRN: Pain, scale 4-10 GlucaGen: 1 mg, 1 mL, Intramuscular, AsDirected, PRN: Hypoglycemia HumaLOG 100 units/mL subcutaneous solution: Give 0-10 units/dose, Subcutaneous, achs Lopressor IV: 5 mg, 5 mL, IV Push, q5min, PRN: Heart Rate 105 bpm or greater Nexletol 180 mg oral tablet: 180 mg, Oral, qDay Pulmicort Respules 0.25 mg/2 mL inhalation suspension: 0.25 mg, 2 mL, Inhalation, BIDRT Toprol-XL: 100 mg, 1 tab(s), Oral, BID Tylenol: 650 mg, 2 tab(s), Oral, q4h, PRN: Pain, scale 1-3 Xarelto: 20 mg, 1 tab(s), Oral, with supper Zofran: 4 mg, 2 mL, IV Push, q4h, PRN: Nausea/Vomiting albuterol 2.5 mg/3 mL (0.083%) inhalation solution: 2.5 mg, 3 mL, Inhalation, QIDRT allopurinol: 100 mg, 1 tab(s), Oral, qDay atorvastatin: 10 mg, 1 tab(s), Oral, qHS ceFAZolin: 2 gram(s), 20 mL, 240 mL/hr, IV Push (INT), q8hr dofetilide: 250 mcg, 1 cap(s), Oral, BID omeprazole: 40 mg, 1 cap(s), Oral, BID traZODone: 100 mg, 1 tab(s), Oral, qHS Prescriptions Prescribed Nexletol 180 mg oral tablet: [...] Oral, qDay, 30 tab(s), 0 Refill(s), Medications (22) Active Scheduled: (14) albuterol 0.083% Soln UD [...] Soln (3 mL) Give 0-10 units/dose, Subcutaneous, achs metoprolol succinate 100 mg ER tablet 100 mg 1 tab(s), Oral, BID Nexletol 180 mg oral tablet 180 mg, Oral, qDay omeprazole [address] capsule 40 mg 1 cap(s), Oral, BID rivaroxaban 20 mg tablet 20 mg 1 tab(s), Oral, with supper spironolactone 25 mg tablet 25 mg 1 tab(s), Oral, qDayM traZODONE 100 mg Tablet 100 mg 1 tab(s), Oral, qHS Continuous: (0) PRN: (8) acetaminophen 325 mg Tablet 650 mg 2 tab(s), Oral, q4h dextrose 50% Solution Disp syringe 50 mL 12.5 g 25 mL, IV Push, AsDirected dextrose 50% Solution Disp syringe 50 mL 25 gram(s) 50 mL, IV Push, AsDirected glucagon recombinant 1 mg 1 mg 1 mL, Intramuscular, AsDirected HYDROmorphone 0.5 mg/0.5 mL syringe 0.25 mg 0.25 mL, IV Push, q3h ipratropium 0.02% (0.5mg/2.5mL) UD 0.5 mg 2.5 mL, Inhalation, q4hRT metoprolol 1 mg/mL (5mL) vial 5 mg 5 mL, IV Push, q5min ondansetron 2 mg/ 1 mL 2 mL INJ 4 mg 2 mL, IV Push, q4h Problem list: Medical Asthma exacerbation / SNOMED CT 3021330021 / Confirmed COPD exacerbation / SNOMED CT 5625594739 / Confirmed Atopic dermatitis / SNOMED CT 38202049 / Confirmed Atypical chest pain / SNOMED CT 852099058 / Confirmed Morbid obesity with BMI of 40.0-44.9, adult / SNOMED CT 6863512473 / Confirmed Bronchitis / SNOMED CT 68403039 / Confirmed Cardiomyopathy / SNOMED CT 645442192 / Confirmed CHF with cardiomyopathy / SNOMED CT 94242227 / Confirmed Cough / SNOMED CT 77298621 / Confirmed Dental abscess / SNOMED CT 843579821 / Confirmed Depression / SNOMED CT 50697862 / Confirmed Dyspnea / SNOMED CT 218096026 / Confirmed Generalized anxiety disorder / SNOMED CT 49070497 / Confirmed Hypertension associated with type 2 diabetes mellitus / SNOMED CT 8705748503 / Confirmed Insomnia / SNOMED CT 789818018 / Confirmed LVH (left ventricular hypertrophy) / SNOMED CT 67136165 / Confirmed Moderate asthma / SNOMED CT 3453137731 / Confirmed Near syncope / SNOMED CT 6020434890 / Confirmed Chewing tobacco nicotine dependence / SNOMED CT 87368757 / Confirmed KOFFI (obstructive sleep apnea) / SNOMED CT 874360978 / Confirmed Right knee pain / SNOMED CT 4230398764 / Confirmed Paroxysmal atrial fibrillation / SNOMED CT 663446731 / Confirmed Screening for ischemic heart disease / SNOMED CT 697390202 / Confirmed Screening for colon cancer / SNOMED CT 257398479 / Confirmed Statin intolerance / SNOMED CT 7291914901 / Confirmed Tachyarrhythmia / SNOMED CT 33763111 / Confirmed Type 2 diabetes mellitus with hemoglobin A1c goal of less than 7.0% / SNOMED CT 983001684 / Confirmed Type 2 diabetes mellitus with hyperlipidemia / SNOMED CT 172563309 / Confirmed, Active Problems (32) Asthma exacerbation [...] Histories Past Medical History: Resolved Morbid obesity (218841437): Resolved. Diabetes mellitus (249102648): Resolved. Hypertension (5703596320): Resolved. BMI 45.0-49.9, adult (8565723435): Resolved. Anxiety (26872360): Resolved. Prediabetes (0024344526): Resolved. Obstructive sleep apnea (997055596): Resolved. Right flank pain (149843186): Resolved. Hyperlipidemia (79990495): Resolved. Mass of arm (939173780): Resolved. Family History: Cancer Father Heart disease Mother Grandparent Stroke Father Procedure history: Excision ([id number]) on 03/25/2024 at 53 Years. 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 Cardioversion ([id number]) on 12/23/2022 at 52 Years. Echocardiogram ([id number]) on 11/11/2022 at 52 Years. Comments: 03/20/2023 [...] right atrial pressure is 15 mm Hg [facility] ([id number]). Comments: 07/11/2022 8:26 CRISTINO Sinha, SHAHEEN warner - right Social History: Social & Psychosocial Habits Alcohol 10/17/2024 Use: Past Substance Abuse 10/17/2024 Use: Never Tobacco 10/17/2024 Tobacco Use: Former smoker, quit more, former chewer of tobacco Type: Oral (Snuff, Chew) Smokeless tobacco use: Former smokeless tobacco, stopped snuff October 2022 11/24/2024 Tobacco Use: Former smoker, quit more Home/Environment 10/17/2024 Living situation: Home/Independent Domestic Concerns None Lives In Single level home Nutrition/Health 10/17/2024 Type of diet: Regular Caffeine intake amount: no caffeine Appetite Good Eating Difficulties None Physical Examination Vital Signs (last 24 hrs) Last Charted Temp Oral36.6 DegC (NOV 28 06:51) Heart Rate Bbsnvc44 bpm (NOV 28 09:06) ANS609 mmHg (NOV 28 06:51) DBP63 mmHg (NOV 28 06:51) General: Alert and oriented. Airway: Normal temporomandibular joint mobility, Normal mouth, Normal throat, Normal neck range of motion, Trachea midline. Mallampati classification: II (soft palate, fauces, uvula visible). Head: Normocephalic. Dentition Evaluation: Intact, Own teeth, Denies loose/chipped teeth. Neck: Supple. Respiratory: Lungs are clear to auscultation. Cardiovascular: Normal rate. Heart Sounds: Normal. Gastrointestinal: Soft. Musculoskeletal Normal range of motion. Integumentary: Intact, Warm, Dry, Ozone. Neurologic: Alert, Oriented. Review / Management Results review: Labs (Last four charted values) WBC 5.8(NOV 28)6.5(NOV 26)8.9(NOV 25)H 12.6(NOV 24) Hgb 13.8(NOV 28)14.2(NOV 26)14.9(NOV 25)15.7(NOV 24) Hct 42.1(NOV 28)42.6(NOV 26)44.6(NOV 25)48.7(NOV 24) Plt 195(NOV 28)L 140(NOV 26)183(NOV 25)190(NOV 24) Na 137(NOV 28)L 135(NOV 26)136(NOV 25)L 134(NOV 24) K 4.0(NOV 28)4.4(NOV 26)3.8(NOV 25)4.1(NOV 24) CO2 31(NOV 28)29(NOV 26)24(NOV 25)23(NOV 24) Cl 101(NOV 28)100(NOV 26)100(NOV 25)99(NOV 24) Cr 0.77(NOV 28)0.87(NOV 26)0.89(NOV 25)0.90(NOV 24) BUN 9.0(NOV 28)10.0(NOV 26)14.0(NOV 25)9.0(NOV 24) Glucose 100(NOV 28)H 131(NOV 26)108(NOV 25)109(NOV 24) Mg 2.1(NOV 25)2.3(NOV 24) Ca 9.2(NOV 28)9.0(NOV 26)9.1(NOV 25)9.2(NOV 24) . Assessment and Plan [employer] (ASA) physical status classification: Class IV. Anesthetic Preoperative Plan Premedication: None. Anesthetic technique: General. Induction: intravenously. Maintenance airway: Mask. Special techniques: Warming device, no Extracorporeal. Special Monitoring: Continuous transesophageal echocardiogram. Postoperative pain management: Per surgeon. Risks discussed: nausea, vomiting, headache, sore throat, dental injury, hypotension, allergic reaction, serious complications. Informed consent: signed by patient. Beta Kp: Beta Kp Taken Within 24 Hrs: Yes. Digitally Signed by ROJELIO NORIEGA DO on 11/28/2024 09:55 AM [id number] Note. MICRO - Microbiology PROCEDURE: Blood Culture (bacterial) [*1] SOURCE: Blood BODY SITE: COLLECTED DATE/TIME: 11/25/2024 08:57 EDT RECEIVED DATE/TIME: 11/25/2024 09:07 EDT START DATE/TIME: 11/25/2024 09:07 EDT FREE TEXT SOURCE: peds bottle FINAL REPORTS Final Report [] Verified Date/Time/Personnel: 11/28/2024 08:51 EDT Staphylococcus coagulase negative Staphylococcus coagulase negative #2 Staphylococcus coagulase negative #3 Isolated from aerobe bottle only. 1 out of 2 sets positive Organism is a potential contaminant. Clinical Significance undetermined. Please contact Microbiology if further work-up is required. PRELIMINARY REPORTS Preliminary Report [] Verified Date/Time/Personnel: 11/25/2024 09:59 EDT Culture has been received in lab and is no growth to date. Routine cultures are held for 5 days. STAINS GSAER [] Verified Date/Time/Personnel: 11/26/2024 00:06 EDT Gram Positive Cocci in clusters Performing Locations *1: This test was performed at: [facility], [address] [place] [address], [facility] , [facility]07-02-2025 Note Date of Service 11/27/2024 Chief Complaint Palpitations Subjective 54-year-old male with a past medical history of COPD, tobacco abuse, A-fib, type 2 diabetes, recentankle fracture with external fixator in place. Presented to [facility] as a transfer from [facility] on 11/24/2024 with complaints of palpitations, found to be in A-fib with RVR. Was admitted with cardiology consultation. Was noted to have hypomagnesemia with a magnesium of 1.6, this wasreplaced. Did convert to sinus rhythm. Was noted to have 2/2 blood cultures positive for gram-positive cocci, PCR positive for Staph aureus. Repeat cultures with 1/2 positive for gram-positive cocci.ID consulted. Orthopedic surgery consulted. On cefazolin. Plan for NELDA On exam no new complaints, tolerating oral intake. No chest pain or shortness of breath. Objective Vitals and Measurements T: 36.5 C (Oral) TMIN: 36.5 C (Oral) TMAX: 37.1 C (Oral) HR: 60 RR: 18 BP: 111/68 SpO2: 93% WT: 134kg Intake and Output 7AM Yesterday to 7AM Today Intake and Output (Last 24 hours) Intake Oral Intake 492.00 Output Urine Voided 975.00 Stool Count 0.00 Total Summary Total Intake 492.00 Total Output 975.00 Fluid Balance -483.00 Physical Exam Physical Exam General: No acute distress. Alert, appropriate and awake, oriented to time, people and place Skin: No rash. Warm, Dry, Intact HEENT: Head is normocephalic and atraumatic. No lesions. Pupils equal in size. Extraocular movements within normal limits. Nose: No septal deviation. Mouth: Oropharynx mucosa is without lesion. Neck: Supple. No lymphadenopathy, thyromegaly noted. Lungs: Bilaterally clear/diminished breath sounds with no crepitation or wheeze. Unlabored Cardiovascular: Heart is regular rhythm, S1S2, No extra-audible heart tones Abdomen: Abdomen is soft, nontender. Bowel sounds positive all four quadrants. Extremities: Right lower extremity dressing with external fixator clean, dry, and intact Neurological: Following simple commands, moving all extremities. Weight Current Weight Dosing Weight: 134.7 kg (11/27/24) Current Weight: 134 kg (11/27/24) Dosing Weight: 132.7 kg (11/26/24) Current Weight: 128.1 kg (11/25/24) Medications Medications (22) Active Scheduled: (14) albuterol 0.083% Soln UD [...] Soln (3 mL) Give 0-10 units/dose, Subcutaneous, achs metoprolol succinate 100 mg ER tablet 100 mg 1 tab(s), Oral, BID Nexletol 180 mg oral tablet 180 mg, Oral, qDay omeprazole [address] capsule 40 mg 1 cap(s), Oral, BID rivaroxaban 20 mg tablet 20 mg 1 tab(s), Oral, with supper spironolactone 25 mg tablet 25 mg 1 tab(s), Oral, qDayM traZODONE 100 mg Tablet 100 mg 1 tab(s), Oral, qHS Continuous: (0) PRN: (8) acetaminophen 325 mg Tablet 650 mg 2 tab(s), Oral, q4h dextrose 50% Solution Disp syringe 50 mL 12.5 g 25 mL, IV Push, AsDirected dextrose 50% Solution Disp syringe 50 mL 25 gram(s) 50 mL, IV Push, AsDirected glucagon recombinant 1 mg 1 mg 1 mL, Intramuscular, AsDirected HYDROmorphone 0.5 mg/0.5 mL syringe 0.25 mg 0.25 mL, IV Push, q3h ipratropium 0.02% (0.5mg/2.5mL) UD 0.5 mg 2.5 mL, Inhalation, q4hRT metoprolol 1 mg/mL (5mL) vial 5 mg 5 mL, IV Push, q5min ondansetron 2 mg/ 1 mL 2 mL INJ 4 mg 2 mL, IV Push, q4h Lab Results 11/26 10:52 WBC: 6.5 Hgb: 14.2 Hct: 42.6 Platelet: 140 L Neutrophil %: 75.5 H Glucose Level: 131 H Sodium Level: 135 L Potassium Level: 4.4 BUN: 10.0 Creatinine Lvl (s): 0.87 EKG No qualifying data available. Assessment/Plan 1. Atrial fibrillation 2. Ankle fracture 3. Positive blood cultures 4. Cardiomyopathy 5. GERD (gastroesophageal reflux disease) 6. HTN (hypertension) 7. DM2 (diabetes mellitus, type 2) 8. Depression A-fib with RVR, he has converted. Continue home Tikosyn and beta-kp. Continue anticoagulation. 2/2 blood cultures positive for MSSA. On cefazolin. ID following. Repeat cultures with 1/2 positivefor GPC. Orthopedic surgery following. Suspect source is right lower extremity fracture/external fixator. Plan for NELDA History of cardiomyopathy, EF 50 to 55% on echocardiogram in September of this year GERD, continue PPI Hypertension, blood pressure stable Type 2 diabetes, he is on metformin at home. Continue sliding scale insulin. Depression, continue duloxetine CODE STATUS: Full code Discussed with patient at the bedside, discussed with Dr. Collins Level of Care Indication Regular Floor DVT Prophylaxis Full anticoagulation Maintenance IVF Indication NA / No maintenance IVF Indwelling Urinary Catheter Indication NA No indwelling catheter Anticipated Timeline of Discharge 24 hours Anticipated DC Disposition SNF Digitally Signed by MELISSA ORTEGA on 11/27/2024 12:32 PM [facility] [id number] Infectious disease Progress note Date of Service 11/27/2024 Chief Complaint MSSA bacteremia Subjective Patient seen and independently evaluated the bedside. He is resting in bed comfortably in no acute distress. Feels much better today. Complains of mild right leg pain. Otherwise, no acute complaints. Objective Vitals and Measurements T: 36.5 C (Oral) TMIN: 36.5 C (Oral) TMAX: 37.1 C (Oral) HR: 64 (Apical) RR: 18 BP: 111/68 SpO2: 93% WT: 134 kg Intake and Output 7AM Yesterday to 7AM Today Intake and Output (Last 24 hours) Intake Oral Intake 252.00 Output Urine Voided 975.00 Stool Count 0.00 Total Summary Total Intake 252.00 Total Output 975.00 Fluid Balance -723.00 Physical Exam General: No acute distress. Alert and Appropriate Skin: External fixator with crusting over the lateral aspects of the ankle with mild erythema. HEENT: Head is normocephalic and atraumatic. No lesions. Pupils equal in size. Extraocular movements within normal limits. Nose: No septal deviation. Mouth: Oropharynx mucosa is without lesion. Neck: Supple. No lymphadenopathy, thyromegaly noted. No carotid bruit heard. Lungs: Respirations are unlabored, bilaterally clear breath sounds with no crepitation or wheeze. Cardiovascular: Heart is regular rhythm, S1S2, no murmur Abdomen: Abdomen is soft, nontender. Bowel sounds positive all four quadrants Extremities: No clubbing, cyanosis or edema. Peripheral pulses palpable. Adequate peripheral circulation. Neurological: The patient is awake, oriented to person, place and time. Following simple commands, moving all extremities. Weight Current Weight Dosing Weight: 134.7 kg (11/27/24) Current Weight: 134 kg (11/27/24) Dosing Weight: 132.7 kg (11/26/24) Current Weight: 128.1 kg (11/25/24) Medications Medications (22) Active Scheduled: (14) albuterol 0.083% Soln UD [...] Soln (3 mL) Give 0-10 units/dose, Subcutaneous, achs metoprolol succinate 100 mg ER tablet 100 mg 1 tab(s), Oral, BID Nexletol 180 mg oral tablet 180 mg, Oral, qDay omeprazole [address] capsule 40 mg 1 cap(s), Oral, BID rivaroxaban 20 mg tablet 20 mg 1 tab(s), Oral, with supper spironolactone 25 mg tablet 25 mg 1 tab(s), Oral, qDayM traZODONE 100 mg Tablet 100 mg 1 tab(s), Oral, qHS Continuous: (0) PRN: (8) acetaminophen 325 mg Tablet 650 mg 2 tab(s), Oral, q4h dextrose 50% Solution Disp syringe 50 mL 12.5 g 25 mL, IV Push, AsDirected dextrose 50% Solution Disp syringe 50 mL 25 gram(s) 50 mL, IV Push, AsDirected glucagon recombinant 1 mg 1 mg 1 mL, Intramuscular, AsDirected HYDROmorphone 0.5 mg/0.5 mL syringe 0.25 mg 0.25 mL, IV Push, q3h ipratropium 0.02% (0.5mg/2.5mL) UD 0.5 mg 2.5 mL, Inhalation, q4hRT metoprolol 1 mg/mL (5mL) vial 5 mg 5 mL, IV Push, q5min ondansetron 2 mg/ 1 mL 2 mL INJ 4 mg 2 mL, IV Push, q4h Lab Results 11/26 10:52 WBC: 6.5 Hgb: 14.2 Hct: 42.6 Platelet: 140 L Neutrophil %: 75.5 H Glucose Level: 131 H Sodium Level: 135 L Potassium Level: 4.4 BUN: 10.0 Creatinine Lvl (s): 0.87 Imaging Results and Diagnostics XR Tibia/Fibula 2 Views Right Result Date: November 25, 2024 Verified By: BEAU COLEY MD CLINICAL STATEMENT: IMPRESSION: No acute fracture or dislocation of the proximal tibia or fibula. Externalfixator. I have personally reviewed the images of this examination and agree with theresident's findings and interpretation. XR Ankle Minimum 3 Views Right Result Date: November 25, 2024 Verified By: TRACE FIERRO MD CLINICAL STATEMENT: IMPRESSION: Given differences in technique, no significant change in the osseousstructures from prior exam. XR Ankle Minimum 3 Views Left Result Date: November 25, 2024 Verified By: BEAU COLEY MD CLINICAL STATEMENT: IMPRESSION: Stable alignment of distal fibula/lateral malleolar fracture with callusformation.. I have personally reviewed the images of this examination and agree with theresident's findings and interpretation. XR Chest 1 View Result Date: November 24, 2024 Verified By: MELISSA SANTOS MD CLINICAL STATEMENT: IMPRESSION: Mild cardiomegaly, no acute process. EKG No qualifying data available. Assessment/Plan MSSA bacteremia Surgical site infection of the right ankle/external fixator Type 2 diabetes Leukocytosis Patient is a 54-year-old male with history of COPD, atrial fibrillation, type 2 diabetes, recent right ankle fracture with external fixator with scheduled operative repair with [employer] presents to the hospital from [facility] on 11/24/2024 as a transfer for shortness of breath and palpitations. EKG in the ER consistent with A-fib with RVR. Found to have MSSA bacteremia so ID has been following. #1 high-grade MSSA bacteremia with potential sources soft tissue/skin infection involving the rightankle with external fixator in place. Repeat blood cultures on 11/26/2024 with no growth to date. TEEis currently pending, plan for tomorrow morning. He is clinically improving, no fevers or leukocytosis. Will await NELDA and continue cefazolin. Plan of care discussed in depth with patient. All questions answered. Patient verbalized understanding and is agreeable to plan of care. Discussed with my collaborating physician Dr. Te Casey. Any changes to the plan will be added to end as an addendum. Time Spent I spent a total of 39 minutes reviewing the patient s diagnostic labs/tests, seeing and examining the patient and documenting in the medical record, see assessment for further detail. Digitally Signed by ORI TOMLIN on 11/27/2024 02:19 PM [facility] [id number] Note. MICRO - Microbiology PROCEDURE: Blood Culture (bacterial) [O1 *1] SOURCE: Blood BODY SITE: COLLECTED DATE/TIME: 11/24/2024 05:08 EDT RECEIVED DATE/TIME: 11/24/2024 12:36 EDT START DATE/TIME: 11/24/2024 12:37 EDT FREE TEXT SOURCE: FINAL REPORTS Final Report [] Verified Date/Time/Personnel: 11/27/2024 09:17 EDT Staphylococcus aureus Isolated from aerobe and anaerobe bottles. Refer to previous culture for susceptibility. [id number] PRELIMINARY REPORTS Preliminary Report [] Verified Date/Time/Personnel: 11/26/2024 09:01 EDT Staphylococcus aureus Isolated from aerobe and anaerobe bottles. Final report to follow. Preliminary Report [] Verified Date/Time/Personnel: 11/24/2024 13:59 EDT Culture has been received in lab and is no growth to date. Routine cultures are held for 5 days. STAINS GSANA [] Verified Date/Time/Personnel: 11/25/2024 09:43 EDT Gram Positive Cocci in clusters GSAER [] Verified Date/Time/Personnel: 11/25/2024 06:20 EDT Gram Positive Cocci in clusters SUSCEPTIBILITY RESULTS Staphylococcus aureus Antibiotic LAURI Dilut LAURI Inter ID Panel Not Not Applicable Applicable Order Comments O1: Blood Culture (bacterial) ordered secondary to Sepsis Alert Performing Locations *1: This test was performed at: [address], [address]- , [facility]07-02-2025 Note. MICRO - Microbiology PROCEDURE: Blood Culture (bacterial) [O1 *1] SOURCE: Blood BODY SITE: COLLECTED DATE/TIME: 11/24/2024 05:08 EDT RECEIVED DATE/TIME: 11/24/2024 12:36 EDT START DATE/TIME: 11/24/2024 12:36 EDT FREE TEXT SOURCE: FINAL REPORTS Final Report [] Verified Date/Time/Personnel: 11/27/2024 09:17 EDT Staphylococcus aureus Isolated from aerobe bottle only. PRELIMINARY REPORTS Preliminary Report [] Verified Date/Time/Personnel: 11/26/2024 09:00 EDT Staphylococcus aureus Isolated from aerobe bottle only. LAURI to follow Preliminary Report [] Verified Date/Time/Personnel: 11/24/2024 13:59 EDT Culture has been received in lab and is no growth to date. Routine cultures are held for 5 days. STAINS GSAER [] Verified Date/Time/Personnel: 11/25/2024 06:20 EDT Gram Positive Cocci in clusters SUSCEPTIBILITY RESULTS Staphylococcus aureus Antibiotic LAURI Dilut LAURI Inter Ampicillin 8 Beta Lactamase Positive Ampicillin/ <=8/4 Susceptible Sulbactam Azithromycin >4 Resistant Cefazolin <=8 Susceptible Ceftriaxone <=4 Susceptible Ciprofloxacin >2 Resistant Clindamycin <=0.25 Resistant Erythromycin >4 Resistant ID Panel Not Not Applicable Applicable Levofloxacin >4 Resistant Oxacillin 1 Susceptible Penicillin >2 Beta Lactamase Positive Tetracycline <=4 Susceptible Trimethoprim/ <=0.5/9.5 Susceptible Sulfa Vancomycin 1 Susceptible Order Comments O1: Blood Culture (bacterial) ordered secondary to Sepsis Alert Performing Locations *1: This test was performed at: [address], [address]- , [facility]07-01-2025 Orthopaedic surgery Consult note Date of Service 11/25/2024 Reason for Consultation Pin site care History of Present Illness Chucky is a 54-year-old male who is admitted to [place] for A-fib with RVR. Patient had recent right bimalleolar ankle fracture and Ex-Fix right ankle spanning placement on 10/17/2024. Orthopedic surgery was consult for evaluation of and management of right ankle external fixator. Of note patient had a previous left ankle fracture who was being followed up by another surgeon. Patient evaluated bedside. Patient states that he began to feel palpitations and presented to ED. He states that he has been doing well with his right ankle Ex- Fix. He states that his swelling has decreased significantly and blisters stopped forming. He denies any fever or chills. He denies any purulent drainage from Ex-Fix pin site. He denies any numbness, tingling, weakness right lower extremity. He reports that his left ankle is doing well and he has been ambulating with the boot. He denies any pain to left ankle at this time. He denies any numbness, tingling, weakness left lower extremity. Review of Systems ROS negative as otherwise stated HPI. Physical Exam Vitals and Measurements T: 36.6 C (Oral) TMIN: 36.6 C (Oral) TMAX: 37.2 C (Oral) HR: 70 RR: 20 BP: 110/62 SpO2: 93% WT: 128.1 kg Weight Current Weight Dosing Weight: 126 kg (11/24/24) Current Weight: 128.1 kg (11/25/24) Right Lower Extremity - There is a right ankle spanning external fixator in place. Pin sites without purulent drainage. There is eschar around the calcaneus pin sites. There are healing fracture blisters surrounding rightankle. There is pitting edema to right foot. - Motor: Hip flexion/extension, quadriceps, hamstrings, gastruc/soleus, EHL/FHL intact. - Foot warm and perfused. BCR - Sensation grossly intact L2-S2: obturator, femoral, LCN, DPN, SPN, sural, saphenous, M/LOG SORTING SUPERVISOR - Calf soft and non-tender Left Lower Extremity - No tenderness palpation about left ankle. Skin intact. - Motor: Hip flexion/extension, quadriceps, hamstrings, gastruc/soleus, EHL/FHL intact. - Foot warm and perfused. BCR - Sensation grossly intact L2-S2: obturator, femoral, LCN, DPN, SPN, sural, saphenous, M/LOG SORTING SUPERVISOR - Calf soft and non-tender Lab Results 11/25 08:57 WBC: 8.9 Hgb: 14.9 Hct: 44.6 Platelet: 183 Neutrophil %: 80.1 H 11/25 07:41 Glucose Level: 108 Sodium Level: 136 Potassium Level: 3.8 BUN: 14.0 Creatinine Lvl (s): 0.89 11/24 13:17 WBC: 12.6 H Hgb: 15.7 Hct: 48.7 Platelet: 190 Neutrophil %: 77.1 H Glucose Level: 109 Sodium Level: 134 L Potassium Level: 4.1 BUN: 9.0 Creatinine Lvl (s): 0.90 Imaging Results and Diagnostics Imaging personally viewed interpreted X-ray right ankle demonstrates some callus formation of lateral mall, good joint and fracture alignment X-ray left ankle demonstrates callus formation lateral mall EKG EC11/24/24: SINUS RHYTHM LAD, CONSIDER LEFT ANTERIOR FASCICULAR BLOCK LOW VOLTAGE, PRECORDIAL LEADS CONSIDER ANTERIOR INFARCT Electronic Signature: JORDON ARCOS MD 11/25/2024 09:46:09 Assessment/Plan Right bimalleolar ankle fracture, s/p right ankle Ex-Fix 10/17/2024 54-year-old male admitted for A-fib with RVR, Ex-Fix in place without evidence of infection - No plans for acute orthopedic surgical intervention - Continue IV antibiotics - Nonweightbearing right lower extremity - WBAT LLE with boot - Continue daily pin site care -Follow-up with Dr. Quintana as outpatient -Discussed with attending Problem List/Past Medical History Ongoing Asthma exacerbation [...] solution, 2.5 mg= 3 mL, Inhalation, QIDRT Aldactone, 25 mg= 1 tab(s), Oral, qDayM allopurinol, 100 mg= 1 tab(s), Oral, qDay atorvastatin, 10 mg= 1 tab(s), Oral, qHS Atrovent (0.5mg/2.5 mL) inhalation solution, 0.5 mg= 2.5 mL, Inhalation, q4hRT, PRN Cardizem, 25 mg= 5 mL, IV Push, Once ceFAZolin, 2 gram(s)= 20 mL, IV Push (INT), q8hr Dextrose, 12.5 gram(s)= 25 mL, IV Push, AsDirected, PRN Dextrose 50% IV Push, 25 gram(s)= 50 mL, IV Push, AsDirected, PRN Dilaudid, 0.25 mg= 0.25 mL, IV Push, q3h, PRN dofetilide, 250 mcg= 1 cap(s), Oral, BID DULoxetine, 20 mg= 1 cap(s), Oral, qDay GlucaGen, 1 mg= 1 mL, Intramuscular, AsDirected, PRN HumaLOG 100 units/mL subcutaneous solution, Give 0-10 units/dose, Subcutaneous, achs Lopressor IV, 5 mg= 5 mL, IV Push, q5min, PRN Nexletol 180 mg oral tablet, 180 mg, Oral, qDay omeprazole, 40 mg= 1 cap(s), Oral, BID Pulmicort Respules 0.25 mg/2 mL inhalation suspension, 0.25 mg= 2 mL, Inhalation, BIDRT Toprol-XL, 100 mg= 1 tab(s), Oral, BID traZODone, 100 mg= 1 tab(s), Oral, qHS Tylenol, 650 mg= 2 tab(s), Oral, q4h, PRN Xarelto, 20 mg= 1 tab(s), Oral, with supper Zofran, 4 mg= 2 mL, IV Push, q4h, PRN Home albuterol 2.5 mg/3 mL (0.083%) inhalation solution, 2.5 mg= 3 mL, Inhalation, q6h allopurinol 100 mg oral tablet, 100 mg= 1 tab(s), Oral, qDay, 3 refills cetirizine 10 mg oral tablet, 10 mg= 1 tab(s), Oral, Daily, 3 refills DULoxetine 20 mg oral delayed release capsule, 20 mg= 1 cap(s), Oral, qDay Nexletol 180 mg oral tablet, 180 mg= 1 tab(s), Oral, qDay, 5 refills omeprazole 40 mg oral delayed release capsule, 40 mg= 1 cap(s), Oral, BID Potassium Chloride (Eqv-K-Tab) 10 mEq oral tablet, extended release, 10 mEq= 1 tab(s), Oral, qDay, 3 refills, Not taking Potassium Chloride (Eqv-K-Tab) 20 mEq oral tablet, [...] 1.5 mg, Subcutaneous, qWeek, 3 refills Tylenol, 1000 mg, Oral, q4h, PRN Vistaril 25 mg oral capsule, 25 mg= 1 cap(s), Oral, QID, PRN, 3 refills, On hold per physician Xarelto 20 mg oral tablet, 20 mg= 1 tab(s), Oral, qHS, 11 refills Allergies Statins myalgia Social History Alcohol Use: Past., 07/11/2022 Home/Environment Living situation: Home/Independent. Domestic Concerns: None. Lives In: Single level home., 10/17/2024 Nutrition/Health Type of diet: Regular. Caffeine intake amount: no caffeine. Appetite Good. Eating Difficulties None., 10/17/2024 Substance Abuse Use: Never., 07/11/2022 Tobacco Nicotine Use: Former smoker, quit more than 30 days ago., 11/24/2024 Nicotine Use: Former smoker, quit more than 30 days ago, former chewer of tobacco. Type: Oral (Snuff, Chew). Smokeless Tobacco Use: Former smokeless tobacco user, quit more than 30 days ago, stopped snuff October 2022., 01/12/2024 Family History Cancer: Father. Heart disease: Mother and Grandparent. Stroke: Father. Health Status Family Member(s) Immunizations pneumococcal 13-valent conjugate vaccine: 0.5 unknown unit (04/12/22) SARS-CoV-2 (COVID-19) mRNA-1273 vaccine: 0 unknown unit (09/11/20) SARS-CoV-2 (COVID-19) mRNA-1273 vaccine: 0 unknown unit (08/14/20) Digitally Signed by SUZE MISHRA DO on 11/26/2024 07:11 AM [id number] Cardiology Progress note Date of Service 11/26/2024 15:18:36 Subjective Patient's blood cultures are growing MSSA bacteremia. Patient reports he feels well. Denies any chest pain, shortness of breath, new pain. Objective Vitals and Measurements T: 36.6 C (Oral) TMIN: 36.6 C (Oral) TMAX: 37.6 C (Oral) HR: 69 RR: 18 BP: 109/65 SpO2: 91% WT: 132.7 kg Intake and Output 7AM Yesterday to 7AM Today Intake and Output (Last 24 hours) Intake Oral Intake 360.00 Output Urine Voided 825.00 Stool Count 0.00 Urine Count 0.00 Total Summary Total Intake 360.00 Total Output 825.00 Fluid Balance -465.00 Physical Exam General: AAOX3, NAD HEENT: Anicteric sclera, MMM Neck: Trachea midline, no JVD appreciated CVS: RRR, normal S1/S2, no murmurs/rubs/gallops Lung: CTAB, no wheezes/rhonchi/rales Abd: Soft, NT/ND Extrem: WWP, no LE edema Skin: Warm, Intact Neuro: AAOX3, spontaneous movement of all extremities Psych: Appropriate mood & affect Weight Current Weight Dosing Weight: 132.7 kg (11/26/24) Current Weight: 128.1 kg (11/25/24) Dosing Weight: 126 kg (11/24/24) Medications Medications (22) Active Scheduled: (14) albuterol 0.083% Soln UD [...] Soln (3 mL) Give 0-10 units/dose, Subcutaneous, achs metoprolol succinate 100 mg ER tablet 100 mg 1 tab(s), Oral, BID Nexletol 180 mg oral tablet 180 mg, Oral, qDay omeprazole [address] capsule 40 mg 1 cap(s), Oral, BID rivaroxaban 20 mg tablet 20 mg 1 tab(s), Oral, with supper spironolactone 25 mg tablet 25 mg 1 tab(s), Oral, qDayM traZODONE 100 mg Tablet 100 mg 1 tab(s), Oral, qHS Continuous: (0) PRN: (8) acetaminophen 325 mg Tablet 650 mg 2 tab(s), Oral, q4h dextrose 50% Solution Disp syringe 50 mL 12.5 g 25 mL, IV Push, AsDirected dextrose 50% Solution Disp syringe 50 mL 25 gram(s) 50 mL, IV Push, AsDirected glucagon recombinant 1 mg 1 mg 1 mL, Intramuscular, AsDirected HYDROmorphone 0.5 mg/0.5 mL syringe 0.25 mg 0.25 mL, IV Push, q3h ipratropium 0.02% (0.5mg/2.5mL) UD 0.5 mg 2.5 mL, Inhalation, q4hRT metoprolol 1 mg/mL (5mL) vial 5 mg 5 mL, IV Push, q5min ondansetron 2 mg/ 1 mL 2 mL INJ 4 mg 2 mL, IV Push, q4h Lab Results 11/26 10:52 WBC: 6.5 Hgb: 14.2 Hct: 42.6 Platelet: 140 L Neutrophil %: 75.5 H Glucose Level: 131 H Sodium Level: 135 L Potassium Level: 4.4 BUN: 10.0 Creatinine Lvl (s): 0.87 11/25 08:57 WBC: 8.9 Hgb: 14.9 Hct: 44.6 Platelet: 183 Neutrophil %: 80.1 H 11/25 07:41 Glucose Level: 108 Sodium Level: 136 Potassium Level: 3.8 BUN: 14.0 Creatinine Lvl (s): 0.89 EKG No qualifying data available. 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 Presented for shortness of breath/palpitations. Found to be in Afib RVR. Has since converted back to sinus rhythm. A-fib which may have been exacerbated by his hypomagnesemia which has been corrected. Patient is back in sinus rhythm. Will obtain a twelve-lead. No need for repeat 2D echo as he just had 1 month agowhich showed normal LV function. Resume Tikosyn. Cardiology reconsulted November 26 due to patient having MSSA bacteremia. Infectious diseases requestingTEE. Patient denies any dysphagia. No contraindications for NELDA reported. Will discontinue surface echo that has been ordered. Proceed with NELDA with anesthesia (airway risk). Digitally Signed by CHANDRAKANT SUAREZ DO on 11/26/2024 03:36 PM Digitally Signed by CHANDRAKANT SUAREZ DO on 11/26/2024 03:37 PM [facility] [id number] Cardiology Progress note Date of Service 11/26/2024 15:18:36 Subjective Patient's blood cultures are growing MSSA bacteremia. Patient reports he feels well. Denies any chest pain, shortness of breath, new pain. Objective Vitals and Measurements T: 36.6 C (Oral) TMIN: 36.6 C (Oral) TMAX: 37.6 C (Oral) HR: 69 RR: 18 BP: 109/65 SpO2: 91% WT: 132.7 kg Intake and Output 7AM Yesterday to 7AM Today Intake and Output (Last 24 hours) Intake Oral Intake 360.00 Output Urine Voided 825.00 Stool Count 0.00 Urine Count 0.00 Total Summary Total Intake 360.00 Total Output 825.00 Fluid Balance -465.00 Physical Exam General: AAOX3, NAD HEENT: Anicteric sclera, MMM Neck: Trachea midline, no JVD appreciated CVS: RRR, normal S1/S2, no murmurs/rubs/gallops Lung: CTAB, no wheezes/rhonchi/rales Abd: Soft, NT/ND Extrem: WWP, no LE edema Skin: Warm, Intact Neuro: AAOX3, spontaneous movement of all extremities Psych: Appropriate mood & affect Weight Current Weight Dosing Weight: 132.7 kg (11/26/24) Current Weight: 128.1 kg (11/25/24) Dosing Weight: 126 kg (11/24/24) Medications Medications (22) Active Scheduled: (14) albuterol 0.083% Soln UD [...] Soln (3 mL) Give 0-10 units/dose, Subcutaneous, achs metoprolol succinate 100 mg ER tablet 100 mg 1 tab(s), Oral, BID Nexletol 180 mg oral tablet 180 mg, Oral, qDay omeprazole [address] capsule 40 mg 1 cap(s), Oral, BID rivaroxaban 20 mg tablet 20 mg 1 tab(s), Oral, with supper spironolactone 25 mg tablet 25 mg 1 tab(s), Oral, qDayM traZODONE 100 mg Tablet 100 mg 1 tab(s), Oral, qHS Continuous: (0) PRN: (8) acetaminophen 325 mg Tablet 650 mg 2 tab(s), Oral, q4h dextrose 50% Solution Disp syringe 50 mL 12.5 g 25 mL, IV Push, AsDirected dextrose 50% Solution Disp syringe 50 mL 25 gram(s) 50 mL, IV Push, AsDirected glucagon recombinant 1 mg 1 mg 1 mL, Intramuscular, AsDirected HYDROmorphone 0.5 mg/0.5 mL syringe 0.25 mg 0.25 mL, IV Push, q3h ipratropium 0.02% (0.5mg/2.5mL) UD 0.5 mg 2.5 mL, Inhalation, q4hRT metoprolol 1 mg/mL (5mL) vial 5 mg 5 mL, IV Push, q5min ondansetron 2 mg/ 1 mL 2 mL INJ 4 mg 2 mL, IV Push, q4h Lab Results 11/26 10:52 WBC: 6.5 Hgb: 14.2 Hct: 42.6 Platelet: 140 L Neutrophil %: 75.5 H Glucose Level: 131 H Sodium Level: 135 L Potassium Level: 4.4 BUN: 10.0 Creatinine Lvl (s): 0.87 11/25 08:57 WBC: 8.9 Hgb: 14.9 Hct: 44.6 Platelet: 183 Neutrophil %: 80.1 H 11/25 07:41 Glucose Level: 108 Sodium Level: 136 Potassium Level: 3.8 BUN: 14.0 Creatinine Lvl (s): 0.89 EKG No qualifying data available. 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 Presented for shortness of breath/palpitations. Found to be in Afib RVR. Has since converted back to sinus rhythm. A-fib which may have been exacerbated by his hypomagnesemia which has been corrected. Patient is back in sinus rhythm. Will obtain a twelve-lead. No need for repeat 2D echo as he just had 1 month agowhich showed normal LV function. Resume Tikosyn. Cardiology reconsulted November 26 due to patient having MSSA bacteremia. Infectious diseases requestingTEE. Patient denies any dysphagia. No contraindications for NELDA reported. Will discontinue surface echo that has been ordered. Proceed with NELDA with anesthesia (airway risk). Digitally Signed by CHANDRAKANT SUAREZ DO on 11/26/2024 03:36 PM Digitally Signed by CHANDRAKANT SUAREZ DO on 11/26/2024 03:37 PM [facility] [id number] Note Date of Service 11/26/2024 Chief Complaint Weakness Subjective 54-year-old male with a past medical history of COPD, tobacco abuse, A-fib, type 2 diabetes, recentankle fracture with external fixator in place. [facility]ed [facility] as a transfer from [facility] on 11/24/2024 with complaints of palpitations, found to be in A-fib with RVR. Was admitted with cardiology consultation. Was noted to have hypomagnesemia with a magnesium of 1.6, this wasreplaced. Did convert to sinus rhythm. Was noted to have 2/2 blood cultures positive for gram-positive cocci, PCR positive for Staph aureus. Repeat cultures with 1/2 positive for gram-positive cocci.ID consulted. Orthopedic surgery consulted. On cefazolin. On exam no new complaints, no fevers overnight. No increased right lower extremity pain. No nausea or vomiting. Objective Vitals and Measurements T: 36.6 C (Oral) TMIN: 36.6 C (Oral) TMAX: 37.6 C (Oral) HR: 63 RR: 18 BP: 109/65 SpO2: 95% WT: 132.7 kg Intake and Output 7AM Yesterday to 7AM Today Intake and Output (Last 24 hours) Intake Oral Intake 860.00 Supplement Intake 0.00 Output Urine Voided 1425.00 Stool Count 0.00 Urine Count 0.00 Total Summary Total Intake 860.00 Total Output 1425.00 Fluid Balance -565.00 Physical Exam Physical Exam General: No acute distress. Alert, appropriate and awake, oriented to time, people and place Skin: No rash. Warm, Dry, Intact HEENT: Head is normocephalic and atraumatic. No lesions. Pupils equal in size. Extraocular movements within normal limits. Nose: No septal deviation. Mouth: Oropharynx mucosa is without lesion. Neck: Supple. No lymphadenopathy, thyromegaly noted. Lungs: Bilaterally clear/diminished breath sounds with no crepitation or wheeze. Unlabored Cardiovascular: Heart is regular rhythm, S1S2, No extra-audible heart tones Abdomen: Abdomen is soft, nontender. Bowel sounds positive all four quadrants. Extremities: Right lower extremity external fixator in place, no significant erythema or edema. No significant drainage Neurological: Following simple commands, moving all extremities. Weight Current Weight Dosing Weight: 132.7 kg (11/26/24) Current Weight: 128.1 kg (11/25/24) Dosing Weight: 126 kg (11/24/24) Medications Medications (22) Active Scheduled: (14) albuterol 0.083% Soln UD [...] Soln (3 mL) Give 0-10 units/dose, Subcutaneous, achs metoprolol succinate 100 mg ER tablet 100 mg 1 tab(s), Oral, BID Nexletol 180 mg oral tablet 180 mg, Oral, qDay omeprazole [address] capsule 40 mg 1 cap(s), Oral, BID rivaroxaban 20 mg tablet 20 mg 1 tab(s), Oral, with supper spironolactone 25 mg tablet 25 mg 1 tab(s), Oral, qDayM traZODONE 100 mg Tablet 100 mg 1 tab(s), Oral, qHS Continuous: (0) PRN: (8) acetaminophen 325 mg Tablet 650 mg 2 tab(s), Oral, q4h dextrose 50% Solution Disp syringe 50 mL 12.5 g 25 mL, IV Push, AsDirected dextrose 50% Solution Disp syringe 50 mL 25 gram(s) 50 mL, IV Push, AsDirected glucagon recombinant 1 mg 1 mg 1 mL, Intramuscular, AsDirected HYDROmorphone 0.5 mg/0.5 mL syringe 0.25 mg 0.25 mL, IV Push, q3h ipratropium 0.02% (0.5mg/2.5mL) UD 0.5 mg 2.5 mL, Inhalation, q4hRT metoprolol 1 mg/mL (5mL) vial 5 mg 5 mL, IV Push, q5min ondansetron 2 mg/ 1 mL 2 mL INJ 4 mg 2 mL, IV Push, q4h Lab Results 11/26 10:52 Glucose Level: 131 H Sodium Level: 135 L Potassium Level: 4.4 BUN: 10.0 Creatinine Lvl (s): 0.87 11/25 08:57 WBC: 8.9 Hgb: 14.9 Hct: 44.6 Platelet: 183 Neutrophil %: 80.1 H 11/25 07:41 Glucose Level: 108 Sodium Level: 136 Potassium Level: 3.8 BUN: 14.0 Creatinine Lvl (s): 0.89 EKG No qualifying data available. Assessment/Plan 1. Atrial fibrillation 2. Ankle fracture 3. Positive blood cultures 4. Cardiomyopathy 5. GERD (gastroesophageal reflux disease) 6. HTN (hypertension) 7. DM2 (diabetes mellitus, type 2) 8. Depression A-fib with RVR, he has converted. Continue home Tikosyn and beta-kp. Continue anticoagulation.Because of rapid ventricular rate infection or hypomagnesemia, magnesium has been replaced. 2/2 blood cultures positive for MSSA. On cefazolin. ID following. Repeat cultures with 1/2 positivefor GPC. Orthopedic surgery following. Suspect source is right lower extremity fracture/external fixator. History of cardiomyopathy, EF 50 to 55% on echocardiogram in September of this year GERD, continue PPI Hypertension, blood pressure stable Type 2 diabetes, he is on metformin at home. Continue sliding scale insulin. Depression, continue duloxetine CODE STATUS: Full code Discussed with patient at the bedside, discussed with Dr. Collins Level of Care Indication Regular Floor DVT Prophylaxis Full anticoagulation Maintenance IVF Indication NA / No maintenance IVF Indwelling Urinary Catheter Indication NA No indwelling catheter Anticipated Timeline of Discharge 48 hours Anticipated DC Disposition SNF Digitally Signed by MELISSA ORTEGA on 11/26/2024 12:18 PM [facility] [id number] Infectious disease Progress note Date of Service 11/26/2024 Chief Complaint MSSA bacteremia Subjective Patient seen and independently evaluated the bedside. He is resting in bed comfortably in no acute distress. No acute complaints. No fever, chills or night sweats. No nausea, vomiting or diarrhea. Noabdominal pain. No urinary complaints Objective Vitals and Measurements T: 36.6 C (Oral) TMIN: 36.6 C (Oral) TMAX: 37.6 C (Oral) HR: 63 RR: 18 BP: 109/65 SpO2: 95% WT: 132.7 kg Intake and Output 7AM Yesterday to 7AM Today Intake and Output (Last 24 hours) Intake Oral Intake 860.00 Supplement Intake 0.00 Output Urine Voided 1425.00 Stool Count 0.00 Urine Count 0.00 Total Summary Total Intake 860.00 Total Output 1425.00 Fluid Balance -565.00 Physical Exam General: No acute distress. Alert and Appropriate Skin: Right leg with external fixator in place, dressing is clean, dry and intact HEENT: Head is normocephalic and atraumatic. No lesions. Pupils equal in size. Extraocular movements within normal limits. Nose: No septal deviation. Mouth: Oropharynx mucosa is without lesion. Neck: Supple. No lymphadenopathy, thyromegaly noted. No carotid bruit heard. Lungs: Bilaterally clear breath sounds with no crepitation or wheeze. Cardiovascular: Heart is regular rhythm, S1S2, No extra-audible heart tones Abdomen: Abdomen is soft, nontender. Bowel sounds positive all four quadrants. No hepatosplenomegaly noted. Extremities: No clubbing, cyanosis or edema. Peripheral pulses palpable. No calf tenderness. Adequate peripheral circulation. Neurological: The patient is awake, oriented to person, place and time. Following simple commands, moving all extremities. Weight Current Weight Dosing Weight: 132.7 kg (11/26/24) Current Weight: 128.1 kg (11/25/24) Dosing Weight: 126 kg (11/24/24) Medications Medications (22) Active Scheduled: (14) albuterol 0.083% Soln UD [...] Soln (3 mL) Give 0-10 units/dose, Subcutaneous, achs metoprolol succinate 100 mg ER tablet 100 mg 1 tab(s), Oral, BID Nexletol 180 mg oral tablet 180 mg, Oral, qDay omeprazole [address] capsule 40 mg 1 cap(s), Oral, BID rivaroxaban 20 mg tablet 20 mg 1 tab(s), Oral, with supper spironolactone 25 mg tablet 25 mg 1 tab(s), Oral, qDayM traZODONE 100 mg Tablet 100 mg 1 tab(s), Oral, qHS Continuous: (0) PRN: (8) acetaminophen 325 mg Tablet 650 mg 2 tab(s), Oral, q4h dextrose 50% Solution Disp syringe 50 mL 12.5 g 25 mL, IV Push, AsDirected dextrose 50% Solution Disp syringe 50 mL 25 gram(s) 50 mL, IV Push, AsDirected glucagon recombinant 1 mg 1 mg 1 mL, Intramuscular, AsDirected HYDROmorphone 0.5 mg/0.5 mL syringe 0.25 mg 0.25 mL, IV Push, q3h ipratropium 0.02% (0.5mg/2.5mL) UD 0.5 mg 2.5 mL, Inhalation, q4hRT metoprolol 1 mg/mL (5mL) vial 5 mg 5 mL, IV Push, q5min ondansetron 2 mg/ 1 mL 2 mL INJ 4 mg 2 mL, IV Push, q4h Lab Results 11/26 10:52 Glucose Level: 131 H Sodium Level: 135 L Potassium Level: 4.4 BUN: 10.0 Creatinine Lvl (s): 0.87 11/25 08:57 WBC: 8.9 Hgb: 14.9 Hct: 44.6 Platelet: 183 Neutrophil %: 80.1 H 11/25 07:41 Glucose Level: 108 Sodium Level: 136 Potassium Level: 3.8 BUN: 14.0 Creatinine Lvl (s): 0.89 Imaging Results and Diagnostics XR Tibia/Fibula 2 Views Right Result Date: November 25, 2024 Verified By: BEAU COLEY MD CLINICAL STATEMENT: IMPRESSION: No acute fracture or dislocation of the proximal tibia or fibula. Externalfixator. I have personally reviewed the images of this examination and agree with theresident's findings and interpretation. XR Ankle Minimum 3 Views Right Result Date: November 25, 2024 Verified By: TRACE FIERRO MD CLINICAL STATEMENT: IMPRESSION: Given differences in technique, no significant change in the osseousstructures from prior exam. XR Ankle Minimum 3 Views Left Result Date: November 25, 2024 Verified By: BEAU COLEY MD CLINICAL STATEMENT: IMPRESSION: Stable alignment of distal fibula/lateral malleolar fracture with callusformation.. I have personally reviewed the images of this examination and agree with theresident's findings and interpretation. XR Chest 1 View Result Date: November 24, 2024 Verified By: MELISSA SANTOS MD CLINICAL STATEMENT: IMPRESSION: Mild cardiomegaly, no acute process. EKG No qualifying data available. Assessment/Plan MSSA bacteremia Surgical site infection of the right ankle/external fixator Type 2 diabetes Leukocytosis Patient is a 54-year-old male with history of COPD, atrial fibrillation, type 2 diabetes, recent right ankle fracture with external fixator with scheduled operative repair tomorrow at outside facility presents from [facility] on 11/24/2024 is transferred for shortness of breath and palpitations. EKG in the ER consistent with A-fib with RVR. Found to have MSSA bacteremia so ID has been following. #1 High-grade MSSA bacteremia, blood cultures on 11/25 are additionally positive. #2 concern for surgical wound infection of the right ankle surrounding the external fixator. Repeatblood cultures show no growth to date. X-ray of the right tibia/fibula and ankle are negative for acute findings, does show small right joint effusion. Orthopedics is not planning for surgical intervention. He is having low-grade temperatures, no fevers. Will await echocardiogram results and repeat 2 sets of blood cultures. Recommend NELDA given persistent bacteremia. Continue cefazolin. Plan of care discussed in depth with patient. All questions answered. Discussed with my collaborating physician Dr. Te Casey. Any changes to the plan will be added to end as an addendum. Time Spent I spent a total of 38 minutes reviewing the patient s diagnostic labs/tests, seeing and examining the patient and documenting in the medical record, see assessment for further detail. Digitally Signed by ORI TOMLIN on 11/26/2024 02:31 PM [facility] [id number] Infectious disease Consult note Date of Service 11/25/2024 Reason for Consultation Staph aureus bacteremia Referring Physician Dr. Juarez History of Present Illness Patient is a 54-year-old male with past medical history of COPD, tobacco abuse, atrial fibrillation, type 2 diabetes, recent right ankle fracture with external fixator with scheduled operative repairtomorrow at outside facility presents from [facility] on 11/24/2024 as a transfer for shortness of breath and palpitations. EKG in the ER consistent with A-fib with RVR. Upon arrival, patient was found to be tachycardic, tachypneic and hypoxic requiring 3 L nasal cannula with leukocytosis of 16,600, D-dimer 564, proBNP 5058. Blood cultures x 2 positive for Staph aureus, PCR shows MSSA. Chest x-ray shows cardiomegaly. CT of the head negative. CT of the chest shows no PE. Empirically on cefazolin. Patient seen and independently evaluated at the bedside. He is resting in bed comfortably in no acute distress. Complains of right ankle pain,. He has not had his pins cleaned for several weeks. No fever, chills or night sweats. No nausea, vomiting or diarrhea. No abdominal pain. No urinary complaints. Review of Systems Pertinent positives included within the HPI. Physical Exam Vitals and Measurements T: 36.6 C (Oral) TMIN: 36.6 C (Oral) TMAX: 37.2 C (Oral) HR: 67 RR: 18 BP: 110/62 SpO2: 95% WT: 128.1 kg Weight Current Weight Dosing Weight: 126 kg (11/24/24) Current Weight: 128.1 kg (11/25/24) General: No acute distress. Alert and Appropriate Skin: External fixator with crusting over the lateral aspects of the ankle with mild erythema. HEENT: Head is normocephalic and atraumatic. No lesions. Pupils equal in size. Extraocular movements within normal limits. Nose: No septal deviation. Mouth: Oropharynx mucosa is without lesion. Neck: Supple. No lymphadenopathy, thyromegaly noted. No carotid bruit heard. Lungs: Respirations are unlabored, bilaterally clear breath sounds with no crepitation or wheeze. Cardiovascular: Heart is regular rhythm, S1S2, no murmur Abdomen: Abdomen is soft, nontender. Bowel sounds positive all four quadrants Extremities: No clubbing, cyanosis or edema. Peripheral pulses palpable. Adequate peripheral circulation. Neurological: The patient is awake, oriented to person, place and time. Following simple commands, moving all extremities. Lab Results 11/25 08:57 WBC: 8.9 Hgb: 14.9 Hct: 44.6 Platelet: 183 Neutrophil %: 80.1 H 11/25 07:41 Glucose Level: 108 Sodium Level: 136 Potassium Level: 3.8 BUN: 14.0 Creatinine Lvl (s): 0.89 11/24 13:17 WBC: 12.6 H Hgb: 15.7 Hct: 48.7 Platelet: 190 Neutrophil %: 77.1 H Glucose Level: 109 Sodium Level: 134 L Potassium Level: 4.1 BUN: 9.0 Creatinine Lvl (s): 0.90 Imaging Results and Diagnostics XR Chest 1 View Result Date: November 24, 2024 Verified By: MELISSA SANTOS MD CLINICAL STATEMENT: IMPRESSION: Mild cardiomegaly, no acute process. EKG EC11/24/24: SINUS RHYTHM LAD, CONSIDER LEFT ANTERIOR FASCICULAR BLOCK LOW VOLTAGE, PRECORDIAL LEADS CONSIDER ANTERIOR INFARCT Electronic Signature: JORDON ARCOS MD 11/25/2024 09:46:09 Assessment/Plan MSSA bacteremia Surgical wound infection of the right ankle/external fixator Type 2 diabetes Leukocytosis Patient is a 54-year-old male with history of COPD, atrial fibrillation, type 2 diabetes, recent right ankle fracture with external fixator with scheduled operative repair tomorrow at outside facility presents from [facility] on 11/24/2024 as a transfer for shortness of breath and palpitations. EKG in the ER consistent with A-fib with RVR. Found to have MSSA bacteremia so ID has been following. #1 MSSA bacteremia secondary to concern for surgical wound infection of the right ankle surroundingthe external fixator. Repeat blood cultures show no growth to date. Would recommend evaluation by orthopedics and X-ray of the left tibia/fibula and ankle to rule out infection as well as will recommend transthoracic echocardiogram. Continue cefazolin. Plan of care discussed in depth with patient. All questions answered. This is a shared/visit with my collaborating physician Dr. Te Casey. Any changes to the plan will be added to end as an addendum. Problem List/Past Medical History Ongoing Asthma exacerbation [...] solution, 2.5 mg= 3 mL, Inhalation, QIDRT Aldactone, 25 mg= 1 tab(s), Oral, qDayM allopurinol, 100 mg= 1 tab(s), Oral, qDay atorvastatin, 10 mg= 1 tab(s), Oral, qHS Atrovent (0.5mg/2.5 mL) inhalation solution, 0.5 mg= 2.5 mL, Inhalation, q4hRT, PRN Cardizem, 25 mg= 5 mL, IV Push, Once ceFAZolin, 2 gram(s)= 20 mL, IV Push (INT), q8hr Dextrose 50% IV Push, 25 gram(s)= 50 mL, IV Push, AsDirected, PRN Dilaudid, 0.25 mg= 0.25 mL, IV Push, q3h, PRN dofetilide, 250 mcg= 1 cap(s), Oral, BID DULoxetine, 20 mg= 1 cap(s), Oral, qDay Lopressor IV, 5 mg= 5 mL, IV Push, q5min, PRN Nexletol 180 mg oral tablet, 180 mg, Oral, qDay omeprazole, 40 mg= 1 cap(s), Oral, BID Pulmicort Respules 0.25 mg/2 mL inhalation suspension, 0.25 mg= 2 mL, Inhalation, BIDRT Toprol-XL, 100 mg= 1 tab(s), Oral, BID traZODone, 100 mg= 1 tab(s), Oral, qHS Tylenol, 650 mg= 2 tab(s), Oral, q4h, PRN Xarelto, 20 mg= 1 tab(s), Oral, with supper Zofran, 4 mg= 2 mL, IV Push, q4h, PRN Home albuterol 2.5 mg/3 mL (0.083%) inhalation solution, 2.5 mg= 3 mL, Inhalation, q6h allopurinol 100 mg oral tablet, 100 mg= 1 tab(s), Oral, qDay, 3 refills cetirizine 10 mg oral tablet, 10 mg= 1 tab(s), Oral, Daily, 3 refills DULoxetine 20 mg oral delayed release capsule, 20 mg= 1 cap(s), Oral, qDay Nexletol 180 mg oral tablet, 180 mg= 1 tab(s), Oral, qDay, 5 refills omeprazole 40 mg oral delayed release capsule, 40 mg= 1 cap(s), Oral, BID Potassium Chloride (Eqv-K-Tab) 10 mEq oral tablet, extended release, 10 mEq= 1 tab(s), Oral, qDay, 3 refills, Not taking Potassium Chloride (Eqv-K-Tab) 20 mEq oral tablet, [...] 1.5 mg, Subcutaneous, qWeek, 3 refills Tylenol, 1000 mg, Oral, q4h, PRN Vistaril 25 mg oral capsule, 25 mg= 1 cap(s), Oral, QID, PRN, 3 refills, On hold per physician Xarelto 20 mg oral tablet, 20 mg= 1 tab(s), Oral, qHS, 11 refills Allergies Statins myalgia Social History Alcohol Use: Past., 07/11/2022 Home/Environment Living situation: Home/Independent. Domestic Concerns: None. Lives In: Single level home., 10/17/2024 Nutrition/Health Type of diet: Regular. Caffeine intake amount: no caffeine. Appetite Good. Eating Difficulties None., 10/17/2024 Substance Abuse Use: Never., 07/11/2022 Tobacco Nicotine Use: Former smoker, quit more than 30 days ago., 11/24/2024 Nicotine Use: Former smoker, quit more than 30 days ago, former chewer of tobacco. Type: Oral (Snuff, Chew). Smokeless Tobacco Use: Former smokeless tobacco user, quit more than 30 days ago, stopped snuff October 2022., 01/12/2024 Family History Cancer: Father. Heart disease: Mother and Grandparent. Stroke: Father. Health Status Family Member(s) Immunizations pneumococcal 13-valent conjugate vaccine: 0.5 unknown unit (04/12/22) SARS-CoV-2 (COVID-19) mRNA-1273 vaccine: 0 unknown unit (09/11/20) SARS-CoV-2 (COVID-19) mRNA-1273 vaccine: 0 unknown unit (08/14/20) Digitally Signed by ORI TOMLIN on 11/25/2024 04:42 PM [facility] [id number] Note* Exam Date Time Procedure Performing Provider Status 11/25/24 6:03 PM XR Ankle Minimum 3 Views Left KAILEY COLEY MD; Auth (Verified) [id number] ORIGINAL EXAMINATION: THREE XRAY VIEWS OF THE LEFT ANKLE11/25/2024 6:03 pm COMPARISON: 10/16/2024 HISTORY: ORDERING SYSTEM PROVIDED HISTORY: Reason for Exam: left ankle fx, FINDINGS: Distal fibular/lateral malleolar displaced fracture, shows no significant change in alignment. Reparative changes in the form a callus formation and periosteal reaction. Corticated ossicles at tip of medial malleolus, same as prior exam. Adjacent mild soft tissue swelling. Alignment at ankle joint is stable. IMPRESSION: Stable alignment of distal fibula/lateral malleolar fracture with callus formation.. I have personally reviewed the images of this examination and agree with the resident's findings and interpretation. Interpreted by: Beau Coley Preliminary Report By: Jordon Levin Electronically signed By Beau Coley Dictated Date: 11/25/2024 7:42:53 PM Prelim Date: 11/25/2024 7:45:19 PM Sign Date: 11/25/2024 7:46:46 PM Ordering Provider: SUZE MISHRA Interpreted by: Beau Coley Preliminary Report By: Jordon Levin Electronically signed By Beau Coley Dictated Date: 11/25/2024 7:42:53 PM Prelim Date: 11/25/2024 7:45:19 PM Sign Date: 11/25/2024 7:46:46 PM Ordering Provider: SUZE MISHRA [facility] [id number] Note* Exam Date Time Procedure Performing Provider Status 11/25/24 6:03 PM XR Tibia/Fibula 2 Views Right KAILEY COLEY MD; Auth (Verified) [id number] ORIGINAL EXAMINATION: TWO XRAY VIEWS OF THE RIGHT TIBIA/FIBULA11/25/2024 6:03 pm COMPARISON: None HISTORY: ORDERING SYSTEM PROVIDED HISTORY: Reason for Exam: soft tissue infection right ankle, FINDINGS: No acute fracture or dislocation is seen within the proximal tibia and fibula. External fixator with metallic screws within the tibia. Suspected small knee joint effusion. IMPRESSION: No acute fracture or dislocation of the proximal tibia or fibula. External fixator. I have personally reviewed the images of this examination and agree with the resident's findings and interpretation. Interpreted by: Beau Coley Preliminary Report By: Jordon Levin Electronically signed By Beau Coley Dictated Date: 11/25/2024 7:37:39 PM Prelim Date: 11/25/2024 7:39:48 PM Sign Date: 11/25/2024 7:42:39 PM Ordering Provider: ORI TOMLIN Interpreted by: Beau Coley Preliminary Report By: Jordon Levin Electronically signed By Beau Coley Dictated Date: 11/25/2024 7:37:39 PM Prelim Date: 11/25/2024 7:39:48 PM Sign Date: 11/25/2024 7:42:39 PM Ordering Provider: ORI TOMLIN [facility] [id number] Note* Exam Date Time Procedure Performing Provider Status 11/25/24 6:01 PM XR Ankle Minimum 3 Views Right TRACE ROUSE MD; Auth (Verified) [id number] ORIGINAL EXAMINATION: THREE XRAY VIEWS OF THE RIGHT ANKLE 11/25/2024 6:02 pm COMPARISON: CT of the ankle October 17, 2024 HISTORY: ORDERING SYSTEM PROVIDED HISTORY: Reason for Exam: ankle ex-fix FINDINGS: External fixation of the tibia and calcaneus. Similar appearing alignment and appearance of the ankle and fibular fracture. Soft tissue swelling and edema. IMPRESSION: Given differences in technique, no significant change in the osseous structures from prior exam. Interpreted by: Trace Fierro Preliminary Report By: Trace Fierro Electronically signed By Trace Fierro Dictated Date: 11/25/2024 7:35:44 PM Prelim Date: 11/25/2024 7:39:01 PM Sign Date: 11/25/2024 7:39:01 PM Ordering Provider: SUZE MISHRA Interpreted by: Trace Fierro Preliminary Report By: Trace Fierro Electronically signed By Trace Fierro Dictated Date: 11/25/2024 7:35:44 PM Prelim Date: 11/25/2024 7:39:01 PM Sign Date: 11/25/2024 7:39:01 PM Ordering Provider: SUZE MISHRA [facility] [id number] Orthopaedic surgery Consult note Date of Service 11/25/2024 Reason for Consultation Pin site care History of Present Illness Chucky is a 54-year-old male who is admitted to [place] for A-fib with RVR. Patient had recent right bimalleolar ankle fracture and Ex-Fix right ankle spanning placement on 10/17/2024. Orthopedic surgery was consult for evaluation of and management of right ankle external fixator. Of note patient had a previous left ankle fracture who was being followed up by another surgeon. Patient evaluated bedside. Patient states that he began to feel palpitations and presented to ED. He states that he has been doing well with his right ankle Ex- Fix. He states that his swelling has decreased significantly and blisters stopped forming. He denies any fever or chills. He denies any purulent drainage from Ex-Fix pin site. He denies any numbness, tingling, weakness right lower extremity. He reports that his left ankle is doing well and he has been ambulating with the boot. He denies any pain to left ankle at this time. He denies any numbness, tingling, weakness left lower extremity. Review of Systems ROS negative as otherwise stated HPI. Physical Exam Vitals and Measurements T: 36.6 C (Oral) TMIN: 36.6 C (Oral) TMAX: 37.2 C (Oral) HR: 70 RR: 20 BP: 110/62 SpO2: 93% WT: 128.1 kg Weight Current Weight Dosing Weight: 126 kg (11/24/24) Current Weight: 128.1 kg (11/25/24) Right Lower Extremity - There is a right ankle spanning external fixator in place. Pin sites without purulent drainage. There is eschar around the calcaneus pin sites. There are healing fracture blisters surrounding rightankle. There is pitting edema to right foot. - Motor: Hip flexion/extension, quadriceps, hamstrings, gastruc/soleus, EHL/FHL intact. - Foot warm and perfused. BCR - Sensation grossly intact L2-S2: obturator, femoral, LCN, DPN, SPN, sural, saphenous, M/LOG SORTING SUPERVISOR - Calf soft and non-tender Left Lower Extremity - No tenderness palpation about left ankle. Skin intact. - Motor: Hip flexion/extension, quadriceps, hamstrings, gastruc/soleus, EHL/FHL intact. - Foot warm and perfused. BCR - Sensation grossly intact L2-S2: obturator, femoral, LCN, DPN, SPN, sural, saphenous, M/LOG SORTING SUPERVISOR - Calf soft and non-tender Lab Results 11/25 08:57 WBC: 8.9 Hgb: 14.9 Hct: 44.6 Platelet: 183 Neutrophil %: 80.1 H 11/25 07:41 Glucose Level: 108 Sodium Level: 136 Potassium Level: 3.8 BUN: 14.0 Creatinine Lvl (s): 0.89 11/24 13:17 WBC: 12.6 H Hgb: 15.7 Hct: 48.7 Platelet: 190 Neutrophil %: 77.1 H Glucose Level: 109 Sodium Level: 134 L Potassium Level: 4.1 BUN: 9.0 Creatinine Lvl (s): 0.90 Imaging Results and Diagnostics Imaging personally viewed interpreted X-ray right ankle demonstrates some callus formation of lateral mall, good joint and fracture alignment X-ray left ankle demonstrates callus formation lateral mall EKG EC11/24/24: SINUS RHYTHM LAD, CONSIDER LEFT ANTERIOR FASCICULAR BLOCK LOW VOLTAGE, PRECORDIAL LEADS CONSIDER ANTERIOR INFARCT Electronic Signature: JORDON ACROS MD 11/25/2024 09:46:09 Assessment/Plan Right bimalleolar ankle fracture, s/p right ankle Ex-Fix 10/17/2024 54-year-old male admitted for A-fib with RVR, Ex-Fix in place without evidence of infection - No plans for acute orthopedic surgical intervention - Continue IV antibiotics - Nonweightbearing right lower extremity - WBAT LLE with boot - Continue daily pin site care -Follow-up with Dr. Quintana as outpatient -Discussed with attending Problem List/Past Medical History Ongoing Asthma exacerbation [...] solution, 2.5 mg= 3 mL, Inhalation, QIDRT Aldactone, 25 mg= 1 tab(s), Oral, qDayM allopurinol, 100 mg= 1 tab(s), Oral, qDay atorvastatin, 10 mg= 1 tab(s), Oral, qHS Atrovent (0.5mg/2.5 mL) inhalation solution, 0.5 mg= 2.5 mL, Inhalation, q4hRT, PRN Cardizem, 25 mg= 5 mL, IV Push, Once ceFAZolin, 2 gram(s)= 20 mL, IV Push (INT), q8hr Dextrose, 12.5 gram(s)= 25 mL, IV Push, AsDirected, PRN Dextrose 50% IV Push, 25 gram(s)= 50 mL, IV Push, AsDirected, PRN Dilaudid, 0.25 mg= 0.25 mL, IV Push, q3h, PRN dofetilide, 250 mcg= 1 cap(s), Oral, BID DULoxetine, 20 mg= 1 cap(s), Oral, qDay GlucaGen, 1 mg= 1 mL, Intramuscular, AsDirected, PRN HumaLOG 100 units/mL subcutaneous solution, Give 0-10 units/dose, Subcutaneous, achs Lopressor IV, 5 mg= 5 mL, IV Push, q5min, PRN Nexletol 180 mg oral tablet, 180 mg, Oral, qDay omeprazole, 40 mg= 1 cap(s), Oral, BID Pulmicort Respules 0.25 mg/2 mL inhalation suspension, 0.25 mg= 2 mL, Inhalation, BIDRT Toprol-XL, 100 mg= 1 tab(s), Oral, BID traZODone, 100 mg= 1 tab(s), Oral, qHS Tylenol, 650 mg= 2 tab(s), Oral, q4h, PRN Xarelto, 20 mg= 1 tab(s), Oral, with supper Zofran, 4 mg= 2 mL, IV Push, q4h, PRN Home albuterol 2.5 mg/3 mL (0.083%) inhalation solution, 2.5 mg= 3 mL, Inhalation, q6h allopurinol 100 mg oral tablet, 100 mg= 1 tab(s), Oral, qDay, 3 refills cetirizine 10 mg oral tablet, 10 mg= 1 tab(s), Oral, Daily, 3 refills DULoxetine 20 mg oral delayed release capsule, 20 mg= 1 cap(s), Oral, qDay Nexletol 180 mg oral tablet, 180 mg= 1 tab(s), Oral, qDay, 5 refills omeprazole 40 mg oral delayed release capsule, 40 mg= 1 cap(s), Oral, BID Potassium Chloride (Eqv-K-Tab) 10 mEq oral tablet, extended release, 10 mEq= 1 tab(s), Oral, qDay, 3 refills, Not taking Potassium Chloride (Eqv-K-Tab) 20 mEq oral tablet, [...] 1.5 mg, Subcutaneous, qWeek, 3 refills Tylenol, 1000 mg, Oral, q4h, PRN Vistaril 25 mg oral capsule, 25 mg= 1 cap(s), Oral, QID, PRN, 3 refills, On hold per physician Xarelto 20 mg oral tablet, 20 mg= 1 tab(s), Oral, qHS, 11 refills Allergies Statins myalgia Social History Alcohol Use: Past., 07/11/2022 Home/Environment Living situation: Home/Independent. Domestic Concerns: None. Lives In: Single level home., 10/17/2024 Nutrition/Health Type of diet: Regular. Caffeine intake amount: no caffeine. Appetite Good. Eating Difficulties None., 10/17/2024 Substance Abuse Use: Never., 07/11/2022 Tobacco Nicotine Use: Former smoker, quit more than 30 days ago., 11/24/2024 Nicotine Use: Former smoker, quit more than 30 days ago, former chewer of tobacco. Type: Oral (Snuff, Chew). Smokeless Tobacco Use: Former smokeless tobacco user, quit more than 30 days ago, stopped snuff October 2022., 01/12/2024 Family History Cancer: Father. Heart disease: Mother and Grandparent. Stroke: Father. Health Status Family Member(s) Immunizations pneumococcal 13-valent conjugate vaccine: 0.5 unknown unit (04/12/22) SARS-CoV-2 (COVID-19) mRNA-1273 vaccine: 0 unknown unit (09/11/20) SARS-CoV-2 (COVID-19) mRNA-1273 vaccine: 0 unknown unit (08/14/20) Digitally Signed by SUZE MISHRA DO on 11/26/2024 07:11 AM [facility] [id number] Cardiology Progress note Date of Service 11/25/2024 14:06:21 Subjective No new concerns. Patient feels well. In sinus rhythm. Objective Vitals and Measurements T: 36.7 C (Oral) TMIN: 36.7 C (Oral) TMAX: 37.2 C (Oral) HR: 82 (Apical) RR: 18 BP: 112/63 SpO2: 93% HT: 177.8 cm WT: 128.1 kg BMI: 39.86 Intake and Output 7AM Yesterday to 7AM Today Intake and Output (Last 24 hours) Intake Oral Intake 690.00 Supplement Intake 0.00 Output Urine Voided 1100.00 Stool Count 0.00 Urine Count 2.00 Total Summary Total Intake 690.00 Total Output 1100.00 Fluid Balance -410.00 Physical Exam General: AAOX3, NAD HEENT: Anicteric sclera, MMM Neck: Trachea midline, no JVD appreciated CVS: RRR, normal S1/S2, no murmurs/rubs/gallops Lung: CTAB, no wheezes/rhonchi/rales Abd: Soft, NT/ND Extrem: WWP, no LE edema Skin: Warm, Intact Neuro: AAOX3, spontaneous movement of all extremities Psych: Appropriate mood & affect Weight Current Weight Dosing Weight: 126 kg (11/24/24) Current Weight: 128.1 kg (11/25/24) Medications Medications (18) Active Scheduled: (12) albuterol 0.083% Soln UD (2.5mg/3 mL) 2.5 [...] 20 mg 1 tab(s), Oral, with supper spironolactone 25 mg tablet 25 mg 1 tab(s), Oral, qDayM traZODONE 100 mg Tablet 100 mg 1 tab(s), Oral, qHS Continuous: (0) PRN: (6) acetaminophen 325 mg Tablet 650 mg 2 tab(s), Oral, q4h dextrose 50% Solution Disp syringe 50 mL 25 gram(s) 50 mL, IV Push, AsDirected HYDROmorphone 0.5 mg/0.5 mL syringe 0.25 mg 0.25 mL, IV Push, q3h ipratropium 0.02% (0.5mg/2.5mL) UD 0.5 mg 2.5 mL, Inhalation, q4hRT metoprolol 1 mg/mL (5mL) vial 5 mg 5 mL, IV Push, q5min ondansetron 2 mg/ 1 mL 2 mL INJ 4 mg 2 mL, IV Push, q4h Lab Results 11/25 07:41 Glucose Level: 108 Sodium Level: 136 Potassium Level: 3.8 BUN: 14.0 Creatinine Lvl (s): 0.89 11/24 13:17 WBC: 12.6 H Hgb: 15.7 Hct: 48.7 Platelet: 190 Neutrophil %: 77.1 H Glucose Level: 109 Sodium Level: 134 L Potassium Level: 4.1 BUN: 9.0 Creatinine Lvl (s): 0.90 EKG EKG (ED) - InProcess -- 11/24/24 15:06:00 EDT, 11/24/24 15:06:00 EDT Assessment/Plan 54 year old male with hx of atrial fibrillation on Tikosyn history of 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 Presented for shortness of breath/palpitations. Found to be in Afib RVR. Has since converted back to sinus rhythm. A-fib which may have been exacerbated by his hypomagnesemia which has been corrected. Patient is back in sinus rhythm. Will obtain a twelve-lead. No need for repeat 2D echo as he just had 1 month agowhich showed normal LV function. Resume Tikosyn. As far as his upcoming surgery for ankle fracture, he is okay to proceed. Cardiology service will sign off, please do not hesitate to reach out for any questions. Thank you for the consult. Digitally Signed by CHANDRAKANT SUAREZ DO on 11/25/2024 02:06 PM [facility] [id number] Note Date of Service 11/25/2024 Chief Complaint Right lower extremity pain Subjective 54-year-old male with a past medical history of COPD, tobacco abuse, A-fib, type 2 diabetes, recentankle fracture with external fixator in place. [facility] as a transfer from [facility] on 11/24/2024 with complaints of palpitations, found to be in A-fib with RVR. Was admitted with cardiology consultation. Was noted to have hypomagnesemia with a magnesium of 1.6, this wasreplaced. Did convert to sinus rhythm. Was noted to have 2/2 blood cultures positive for gram-positive cocci, PCR positive for Staph aureus. Repeat cultures pending. On exam he is laying in bed, right lower extremity examined. No significant drainage, no purulence,erythema, edema. No chest pain or shortness of breath. Objective Vitals and Measurements T: 36.6 C (Oral) TMIN: 36.6 C (Oral) TMAX: 37.2 C (Oral) HR: 67 RR: 18 BP: 110/62 SpO2: 95% WT: 128.1 kg Intake and Output 7AM Yesterday to 7AM Today Intake and Output (Last 24 hours) Intake Oral Intake 690.00 Supplement Intake 0.00 Output Urine Voided 1100.00 Stool Count 0.00 Urine Count 2.00 Total Summary Total Intake 690.00 Total Output 1100.00 Fluid Balance -410.00 Physical Exam Physical Exam General: Alert, appropriate and awake, oriented to time, people and place Skin: No rash. Warm, Dry, Intact HEENT: Head is normocephalic and atraumatic. No lesions. Pupils equal in size. Extraocular movements within normal limits. Nose: No septal deviation. Mouth: Oropharynx mucosa is without lesion. Neck: Supple. No lymphadenopathy, thyromegaly noted. Lungs: Bilaterally clear/diminished breath sounds with no crepitation or wheeze. Unlabored Cardiovascular: Heart is regular rhythm, S1S2, No extra-audible heart tones Abdomen: Abdomen is soft, nontender. Bowel sounds positive all four quadrants. Extremities: Right lower extremity external fixator in place, area is clean, dry, intact. Neurological: Following simple commands, moving all extremities. Weight Current Weight Dosing Weight: 126 kg (11/24/24) Current Weight: 128.1 kg (11/25/24) Medications Medications (19) Active Scheduled: (13) albuterol 0.083% Soln UD (2.5mg/3 mL) 2.5 [...] 20 mg 1 tab(s), Oral, with supper spironolactone 25 mg tablet 25 mg 1 tab(s), Oral, qDayM traZODONE 100 mg Tablet 100 mg 1 tab(s), Oral, qHS Continuous: (0) PRN: (6) acetaminophen 325 mg Tablet 650 mg 2 tab(s), Oral, q4h dextrose 50% Solution Disp syringe 50 mL 25 gram(s) 50 mL, IV Push, AsDirected HYDROmorphone 0.5 mg/0.5 mL syringe 0.25 mg 0.25 mL, IV Push, q3h ipratropium 0.02% (0.5mg/2.5mL) UD 0.5 mg 2.5 mL, Inhalation, q4hRT metoprolol 1 mg/mL (5mL) vial 5 mg 5 mL, IV Push, q5min ondansetron 2 mg/ 1 mL 2 mL INJ 4 mg 2 mL, IV Push, q4h Lab Results 11/25 08:57 WBC: 8.9 Hgb: 14.9 Hct: 44.6 Platelet: 183 Neutrophil %: 80.1 H 11/25 07:41 Glucose Level: 108 Sodium Level: 136 Potassium Level: 3.8 BUN: 14.0 Creatinine Lvl (s): 0.89 11/24 13:17 WBC: 12.6 H Hgb: 15.7 Hct: 48.7 Platelet: 190 Neutrophil %: 77.1 H Glucose Level: 109 Sodium Level: 134 L Potassium Level: 4.1 BUN: 9.0 Creatinine Lvl (s): 0.90 EKG EKG (ED) - Completed -- 11/24/24 15:06:00 EDT, 11/24/24 15:06:00 EDT Assessment/Plan 1. Atrial fibrillation 2. Positive blood cultures 3. Cardiomyopathy 4. GERD (gastroesophageal reflux disease) 5. HTN (hypertension) 6. DM2 (diabetes mellitus, type 2) 7. Depression A-fib with RVR, he has converted. Continue home Tikosyn and beta-kp. Continue anticoagulation.Because of rapid ventricular rate infection or hypomagnesemia, magnesium has been replaced. 2/2 blood cultures positive for gram-positive cocci on Gram stain. PCR positive for Staph aureus. Does have a right ankle fracture with recent placement of external fixator, was to be revised today. Will monitor repeat cultures. Will start cefazolin. History of cardiomyopathy, EF 50 to 55% on echocardiogram in September of this year GERD, continue PPI Hypertension, blood pressure stable Type 2 diabetes, he is on metformin at home. Will start sliding scale insulin Depression, continue duloxetine CODE STATUS: Full code Discussed with patient at the bedside, discussed with Dr. Juarez Level of Care Indication Regular Floor DVT Prophylaxis Full anticoagulation Maintenance IVF Indication NA / No maintenance IVF Indwelling Urinary Catheter Indication NA No indwelling catheter Anticipated Timeline of Discharge 24 hours Anticipated DC Disposition SNF Digitally Signed by MELISSA ORTEGA on 11/25/2024 12:35 PM Digitally Signed by MELISSA ORTEGA on 11/25/2024 01:00 PM [facility] [id number] Infectious disease Consult note Date of Service 11/25/2024 Reason for Consultation Staph aureus bacteremia Referring Physician Dr. Juarez History of Present Illness Patient is a 54-year-old male with past medical history of COPD, tobacco abuse, atrial fibrillation, type 2 diabetes, recent right ankle fracture with external fixator with scheduled operative repairtomorrow at outside facility presents from [facility] on 11/24/2024 as a transfer for shortness of breath and palpitations. EKG in the ER consistent with A-fib with RVR. Upon arrival, patient was found to be tachycardic, tachypneic and hypoxic requiring 3 L nasal cannula with leukocytosis of 16,600, D-dimer 564, proBNP 5058. Blood cultures x 2 positive for Staph aureus, PCR shows MSSA. Chest x-ray shows cardiomegaly. CT of the head negative. CT of the chest shows no PE. Empirically on cefazolin. Patient seen and independently evaluated at the bedside. He is resting in bed comfortably in no acute distress. Complains of right ankle pain,. He has not had his pins cleaned for several weeks. No fever, chills or night sweats. No nausea, vomiting or diarrhea. No abdominal pain. No urinary complaints. Review of Systems Pertinent positives included within the HPI. Physical Exam Vitals and Measurements T: 36.6 C (Oral) TMIN: 36.6 C (Oral) TMAX: 37.2 C (Oral) HR: 67 RR: 18 BP: 110/62 SpO2: 95% WT: 128.1 kg Weight Current Weight Dosing Weight: 126 kg (11/24/24) Current Weight: 128.1 kg (11/25/24) General: No acute distress. Alert and Appropriate Skin: External fixator with crusting over the lateral aspects of the ankle with mild erythema. HEENT: Head is normocephalic and atraumatic. No lesions. Pupils equal in size. Extraocular movements within normal limits. Nose: No septal deviation. Mouth: Oropharynx mucosa is without lesion. Neck: Supple. No lymphadenopathy, thyromegaly noted. No carotid bruit heard. Lungs: Respirations are unlabored, bilaterally clear breath sounds with no crepitation or wheeze. Cardiovascular: Heart is regular rhythm, S1S2, no murmur Abdomen: Abdomen is soft, nontender. Bowel sounds positive all four quadrants Extremities: No clubbing, cyanosis or edema. Peripheral pulses palpable. Adequate peripheral circulation. Neurological: The patient is awake, oriented to person, place and time. Following simple commands, moving all extremities. Lab Results 11/25 08:57 WBC: 8.9 Hgb: 14.9 Hct: 44.6 Platelet: 183 Neutrophil %: 80.1 H 11/25 07:41 Glucose Level: 108 Sodium Level: 136 Potassium Level: 3.8 BUN: 14.0 Creatinine Lvl (s): 0.89 11/24 13:17 WBC: 12.6 H Hgb: 15.7 Hct: 48.7 Platelet: 190 Neutrophil %: 77.1 H Glucose Level: 109 Sodium Level: 134 L Potassium Level: 4.1 BUN: 9.0 Creatinine Lvl (s): 0.90 Imaging Results and Diagnostics XR Chest 1 View Result Date: November 24, 2024 Verified By: MELISSA SANTOS MD CLINICAL STATEMENT: IMPRESSION: Mild cardiomegaly, no acute process. EKG EC11/24/24: SINUS RHYTHM LAD, CONSIDER LEFT ANTERIOR FASCICULAR BLOCK LOW VOLTAGE, PRECORDIAL LEADS CONSIDER ANTERIOR INFARCT Electronic Signature: ARCOS, ATAUL MD 11/25/2024 09:46:09 Assessment/Plan MSSA bacteremia Surgical wound infection of the right ankle/external fixator Type 2 diabetes Leukocytosis Patient is a 54-year-old male with history of COPD, atrial fibrillation, type 2 diabetes, recent right ankle fracture with external fixator with scheduled operative repair tomorrow at outside facility presents from [facility] on 11/24/2024 as a transfer for shortness of breath and palpitations. EKG in the ER consistent with A-fib with RVR. Found to have MSSA bacteremia so ID has been following. #1 MSSA bacteremia secondary to concern for surgical wound infection of the right ankle surroundingthe external fixator. Repeat blood cultures show no growth to date. Would recommend evaluation by orthopedics and X-ray of the left tibia/fibula and ankle to rule out infection as well as will recommend transthoracic echocardiogram. Continue cefazolin. Plan of care discussed in depth with patient. All questions answered. This is a shared/visit with my collaborating physician Dr. Te Casey. Any changes to the plan will be added to end as an addendum. Problem List/Past Medical History Ongoing Asthma exacerbation [...] solution, 2.5 mg= 3 mL, Inhalation, QIDRT Aldactone, 25 mg= 1 tab(s), Oral, qDayM allopurinol, 100 mg= 1 tab(s), Oral, qDay atorvastatin, 10 mg= 1 tab(s), Oral, qHS Atrovent (0.5mg/2.5 mL) inhalation solution, 0.5 mg= 2.5 mL, Inhalation, q4hRT, PRN Cardizem, 25 mg= 5 mL, IV Push, Once ceFAZolin, 2 gram(s)= 20 mL, IV Push (INT), q8hr Dextrose 50% IV Push, 25 gram(s)= 50 mL, IV Push, AsDirected, PRN Dilaudid, 0.25 mg= 0.25 mL, IV Push, q3h, PRN dofetilide, 250 mcg= 1 cap(s), Oral, BID DULoxetine, 20 mg= 1 cap(s), Oral, qDay Lopressor IV, 5 mg= 5 mL, IV Push, q5min, PRN Nexletol 180 mg oral tablet, 180 mg, Oral, qDay omeprazole, 40 mg= 1 cap(s), Oral, BID Pulmicort Respules 0.25 mg/2 mL inhalation suspension, 0.25 mg= 2 mL, Inhalation, BIDRT Toprol-XL, 100 mg= 1 tab(s), Oral, BID traZODone, 100 mg= 1 tab(s), Oral, qHS Tylenol, 650 mg= 2 tab(s), Oral, q4h, PRN Xarelto, 20 mg= 1 tab(s), Oral, with supper Zofran, 4 mg= 2 mL, IV Push, q4h, PRN Home albuterol 2.5 mg/3 mL (0.083%) inhalation solution, 2.5 mg= 3 mL, Inhalation, q6h allopurinol 100 mg oral tablet, 100 mg= 1 tab(s), Oral, qDay, 3 refills cetirizine 10 mg oral tablet, 10 mg= 1 tab(s), Oral, Daily, 3 refills DULoxetine 20 mg oral delayed release capsule, 20 mg= 1 cap(s), Oral, qDay Nexletol 180 mg oral tablet, 180 mg= 1 tab(s), Oral, qDay, 5 refills omeprazole 40 mg oral delayed release capsule, 40 mg= 1 cap(s), Oral, BID Potassium Chloride (Eqv-K-Tab) 10 mEq oral tablet, extended release, 10 mEq= 1 tab(s), Oral, qDay, 3 refills, Not taking Potassium Chloride (Eqv-K-Tab) 20 mEq oral tablet, [...] 1.5 mg, Subcutaneous, qWeek, 3 refills Tylenol, 1000 mg, Oral, q4h, PRN Vistaril 25 mg oral capsule, 25 mg= 1 cap(s), Oral, QID, PRN, 3 refills, On hold per physician Xarelto 20 mg oral tablet, 20 mg= 1 tab(s), Oral, qHS, 11 refills Allergies Statins myalgia Social History Alcohol Use: Past., 07/11/2022 Home/Environment Living situation: Home/Independent. Domestic Concerns: None. Lives In: Single level home., 10/17/2024 Nutrition/Health Type of diet: Regular. Caffeine intake amount: no caffeine. Appetite Good. Eating Difficulties None., 10/17/2024 Substance Abuse Use: Never., 07/11/2022 Tobacco Nicotine Use: Former smoker, quit more than 30 days ago., 11/24/2024 Nicotine Use: Former smoker, quit more than 30 days ago, former chewer of tobacco. Type: Oral (Snuff, Chew). Smokeless Tobacco Use: Former smokeless tobacco user, quit more than 30 days ago, stopped snuff October 2022., 01/12/2024 Family History Cancer: Father. Heart disease: Mother and Grandparent. Stroke: Father. Health Status Family Member(s) Immunizations pneumococcal 13-valent conjugate vaccine: 0.5 unknown unit (04/12/22) SARS-CoV-2 (COVID-19) mRNA-1273 vaccine: 0 unknown unit (09/11/20) SARS-CoV-2 (COVID-19) mRNA-1273 vaccine: 0 unknown unit (08/14/20) Digitally Signed by ORI TOMLIN on 11/25/2024 04:42 PM [id number] Cardiology Progress note Date of Service 11/25/2024 14:06:21 Subjective No new concerns. Patient feels well. In sinus rhythm. Objective Vitals and Measurements T: 36.7 C (Oral) TMIN: 36.7 C (Oral) TMAX: 37.2 C (Oral) HR: 82 (Apical) RR: 18 BP: 112/63 SpO2: 93% HT: 177.8 cm WT: 128.1 kg BMI: 39.86 Intake and Output 7AM Yesterday to 7AM Today Intake and Output (Last 24 hours) Intake Oral Intake 690.00 Supplement Intake 0.00 Output Urine Voided 1100.00 Stool Count 0.00 Urine Count 2.00 Total Summary Total Intake 690.00 Total Output 1100.00 Fluid Balance -410.00 Physical Exam General: AAOX3, NAD HEENT: Anicteric sclera, MMM Neck: Trachea midline, no JVD appreciated CVS: RRR, normal S1/S2, no murmurs/rubs/gallops Lung: CTAB, no wheezes/rhonchi/rales Abd: Soft, NT/ND Extrem: WWP, no LE edema Skin: Warm, Intact Neuro: AAOX3, spontaneous movement of all extremities Psych: Appropriate mood & affect Weight Current Weight Dosing Weight: 126 kg (11/24/24) Current Weight: 128.1 kg (11/25/24) Medications Medications (18) Active Scheduled: (12) albuterol 0.083% Soln UD (2.5mg/3 mL) 2.5 [...] 20 mg 1 tab(s), Oral, with supper spironolactone 25 mg tablet 25 mg 1 tab(s), Oral, qDayM traZODONE 100 mg Tablet 100 mg 1 tab(s), Oral, qHS Continuous: (0) PRN: (6) acetaminophen 325 mg Tablet 650 mg 2 tab(s), Oral, q4h dextrose 50% Solution Disp syringe 50 mL 25 gram(s) 50 mL, IV Push, AsDirected HYDROmorphone 0.5 mg/0.5 mL syringe 0.25 mg 0.25 mL, IV Push, q3h ipratropium 0.02% (0.5mg/2.5mL) UD 0.5 mg 2.5 mL, Inhalation, q4hRT metoprolol 1 mg/mL (5mL) vial 5 mg 5 mL, IV Push, q5min ondansetron 2 mg/ 1 mL 2 mL INJ 4 mg 2 mL, IV Push, q4h Lab Results 11/25 07:41 Glucose Level: 108 Sodium Level: 136 Potassium Level: 3.8 BUN: 14.0 Creatinine Lvl (s): 0.89 11/24 13:17 WBC: 12.6 H Hgb: 15.7 Hct: 48.7 Platelet: 190 Neutrophil %: 77.1 H Glucose Level: 109 Sodium Level: 134 L Potassium Level: 4.1 BUN: 9.0 Creatinine Lvl (s): 0.90 EKG EKG (ED) - InProcess -- 11/24/24 15:06:00 EDT, 11/24/24 15:06:00 EDT Assessment/Plan 54 year old male with hx of atrial fibrillation on Tikosyn history of 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 Presented for shortness of breath/palpitations. Found to be in Afib RVR. Has since converted back to sinus rhythm. A-fib which may have been exacerbated by his hypomagnesemia which has been corrected. Patient is back in sinus rhythm. Will obtain a twelve-lead. No need for repeat 2D echo as he just had 1 month agowhich showed normal LV function. Resume Tikosyn. As far as his upcoming surgery for ankle fracture, he is okay to proceed. Cardiology service will sign off, please do not hesitate to reach out for any questions. Thank you for the consult. Digitally Signed by CHANDRAKANT SUAREZ DO on 11/25/2024 02:06 PM [facility] [id number] Note* Exam Date Time Procedure Performing Provider Status 11/24/24 3:28 PM EKG (ED) - CV JORDON ARCOS MD; Auth (Verified) ECG Final Report SINUS RHYTHM LAD, CONSIDER LEFT ANTERIOR FASCICULAR BLOCK LOW VOLTAGE, PRECORDIAL LEADS CONSIDER ANTERIOR INFARCT Electronic Signature: JORDON ARCOS MD 11/25/2024 09:46:09 [facility] [id number] Cardiology Consult note Reason for Consultation Atrial fibrillation History of Present Illness 56-year-old male with a history of paroxysmal atrial fibrillation on Tikosyn history of 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 He currently feels well and is converted back to sinus rhythm. Of note his magnesium was 1.6. He denies any chest pain PND orthopnea syncope.. Chest x-ray showed no acute congestion Review of Systems Constitutional: Negative for fever, negative for fatigue, negative for chills, negative for weight changes HEENT: Negative for reported sleep apnea, negative for swollen neck glands Cardiovascular: Negative for chest pain, positive for palpitations, negative for lightheadedness/syncope, negative for orthopnea, negative for lower extremity swelling Respiratory: Negative for shortness of breath at rest, positive for shortness of breath with activity, for cough, negative for wheezing Gastrointestinal: Negative for abdominal pain, negative for nausea, negative for melena, negative for hematochezia Genitourinary: Negative for dysuria, negative for urgency, negative for urinary frequency Musculoskeletal: Negative for back pain, negative for abnormal joint pains, negative for unusual muscle pains Skin: Negative for rashes, negative for ulcers Neurological: Negative for facial droop, negative for focal numbness, negative for weakness Psychiatric: Negative for anxiety, negative for depression Endocrine: Negative for hot flashes, negative for excessive thirst Hematologic/Lymphatic: No easy bruising, no unusual bleeding Physical Exam Vitals and Measurements T: 37 C (Oral) HR: 86 (Apical) RR: 18 BP: 104/70 SpO2: 95% HT: 177.8 cm WT: 126 kg BMI: 39.86 Weight Dosing Weight: 126 kg (11/24/24) GENERAL: Well nourished; no acute distress. PSYCHIATRIC: Alert and oriented x 3, cooperative, mood normal, affect normal. HEAD: Normocephalic, nontraumatic head. EYES: Pupils equal, round, and reactive to light; conjunctiva clear bilaterally. . NECK: Supple, no posterior midline tenderness. Normal . No Jvd CARDIAC: Regular rate, regular rhythm, no murmurs noted. RESPIRATORY: Regular rate and depth; no distress, RIGHT lung clear, LEFT lung clear. Breath sounds normal. ABDOMEN: Soft, nontender. Normal bowel sounds. EXTREMITIES: No _ lower extremity pitting edema. No lymphedema. Dorsalis Pedis pulse +2/4 bilaterally. Posterior Tibialis pulse +2/4 bilaterally. NEURO: Cranial Nerves II-XII grossly intact; negative seated straight leg raising. +2/4 RIGHT patellar reflex, +2/4 LEFT patellar reflex. MUSCULOSKELETAL: Gait normal. DERM: Warm and dry. Normal turgor. No observed rash Lab Results 11/24 13:17 WBC: 12.6 H Hgb: 15.7 Hct: 48.7 Platelet: 190 Neutrophil %: 77.1 H Glucose Level: 109 Sodium Level: 134 L Potassium Level: 4.1 BUN: 9.0 Creatinine Lvl (s): 0.90 Assessment/Plan 1. Atrial fibrillation A-fib which may have been exacerbated by his hypomagnesemia which has been corrected. Patient is back in sinus rhythm. Will obtain a twelve-lead. No need for repeat 2D echo as he just had 1 month agowhich showed normal LV function. Resume Tikosyn. As far as his upcoming surgery he is okay to proceed tomorrow. Problem List/Past Medical History Ongoing Asthma exacerbation [...] Cardioversion: 12/23/22 Echocardiogram: 11/11/22 Elbow Medications Inpatient Atrovent (0.5mg/2.5 mL) inhalation solution, 0.5 mg= 2.5 mL, Inhalation, q4hRT, PRN Cardizem, 25 mg= 5 mL, IV Push, Once Dextrose 50% IV Push, 25 gram(s)= 50 mL, IV Push, AsDirected, PRN Dilaudid, 0.25 mg= 0.25 mL, IV Push, q3h, PRN heparin 5000 units/mL injection, 5000 unit(s)= 1 mL, Subcutaneous, q8h Lasix, 40 mg= 4 mL, IV Push, Once Lopressor IV, 5 mg= 5 mL, IV Push, q5min, PRN Tylenol, 650 mg= 2 tab(s), Oral, [...] capsule, 20 mg= 1 cap(s), Oral, qDay Nexletol 180 mg oral tablet, 180 mg= 1 tab(s), Oral, qDay, 5 refills omeprazole 40 mg oral delayed release capsule, 40 mg= 1 cap(s), Oral, BID Potassium Chloride (Eqv-K-Tab) 10 mEq oral tablet, extended release, 10 mEq= 1 tab(s), Oral, qDay, 3 refills, Not taking Potassium Chloride (Eqv-K-Tab) 20 mEq oral tablet, [...] 1.5 mg, Subcutaneous, qWeek, 3 refills Tylenol, 1000 mg, Oral, q4h, PRN Vistaril 25 mg oral capsule, 25 mg= 1 cap(s), Oral, QID, PRN, 3 refills, On hold per physician Xarelto 20 mg oral tablet, 20 mg= 1 tab(s), Oral, qHS, 11 refills Allergies Statins myalgia Social History Alcohol Use: Past., 07/11/2022 Home/Environment Living situation: Home/Independent. Domestic Concerns: None. Lives In: Single level home., 10/17/2024 Nutrition/Health Type of diet: Regular. Caffeine intake amount: no caffeine. Appetite Good. Eating Difficulties None., 10/17/2024 Substance Abuse Use: Never., 07/11/2022 Tobacco Nicotine Use: Former smoker, quit more than 30 days ago., 11/24/2024 Nicotine Use: Former smoker, quit more than 30 days ago, former chewer of tobacco. Type: Oral (Snuff, Chew). Smokeless Tobacco Use: Former smokeless tobacco user, quit more than 30 days ago, stopped snuff October 2022., 01/12/2024 Family History Cancer: Father. Heart disease: Mother and Grandparent. Stroke: Father. Health Status Family Member(s) Immunizations pneumococcal 13-valent conjugate vaccine: 0.5 unknown unit (04/12/22) SARS-CoV-2 (COVID-19) mRNA-1273 vaccine: 0 unknown unit (09/11/20) SARS-CoV-2 (COVID-19) mRNA-1273 vaccine: 0 unknown unit (08/14/20) Digitally Signed by BENNETT SMITH MD on 11/24/2024 03:05 PM [facility] [id number] Note* Exam Date Time Procedure Performing Provider Status 11/24/24 2:00 PM XR Chest 1 View MELISSA SANTOS MD; Aut h (Verified) [id number] ORIGINAL EXAMINATION: ONE XRAY VIEW OF THE CHEST 11/24/2024 2:01 pm COMPARISON: October 02, 2024 HISTORY: ORDERING SYSTEM PROVIDED HISTORY: Reason for Exam: SOB FINDINGS: Mild cardiomegaly is present without vascular congestion. No infiltrate or pleural fluid is visible. No acute osseous finding. IMPRESSION: Mild cardiomegaly, no acute process. Interpreted by: Melissa Santos MD Preliminary Report By: Melissa Santos MD Electronically signed By Melissa Santos MD Dictated Date: 11/24/2024 2:02:59 PM Prelim Date: 11/24/2024 2:03:25 PM Sign Date: 11/24/2024 2:03:25 PM Ordering Provider: KARLENE BARCENAS Interpreted by: Melissa Santos MD Preliminary Report By: Melissa Santos MD Electronically signed By Melissa Santos MD Dictated Date: 11/24/2024 2:02:59 PM Prelim Date: 11/24/2024 2:03:25 PM Sign Date: 11/24/2024 2:03:25 PM Ordering Provider: KARLENE BARCENAS [facility] [id number] Evaluation + Plan noteExtracted from: Title:History and Physical Author:KARLENE BARCENAS Date:11/24/24 Acute hypoxic respiratory fa ilure Atrial fibrillation with rapid ventricular response Elevated proBNP Hypomagnesemia History of COPD T2DM Recent ankle fracture, patient will need to reschedule operative repair with OSH Visual hallucination The patient was admitted to stepdown for management of acute hypoxic respiratory failure in the setting of A-fib with RVR. In terms of rate management, monitor patient on telemetry, keep magnesium at 2, potassium of 4. 5 mg IV Lopressor every 5 minutes x 3 doses ordered. Cardiology is consulted, appreciate recommendations. Check TSH. 2D echo was ordered. Patient currently on 2 L nasal cannula, will order CXR to assess for possible fluid overload, no commentary on fluid overload on CT chest. Patient given 40 mg IV Lasix upon arrival. Daily weight, fluid restriction to 2000 cc. Strict I/O. Patient's visual hallucinations have resolved. Could be due to to hypoxia, elevated BP, and medication effect. Continue to monitor. No focal deficits on exam. CBC and BMP are ordered daily and replete electrolytes as necessary. ADA diet in place, regular Accu-Cheks in setting of T2DM. Sliding scale insulin is in place. The labs, the imaging, the EKG were personally reviewed. The case was transferred under the direction of my colleague. DVT prophylaxis: Heparin The patient is a full code The patient will require 2 midnight stay for management of hypoxia in the setting of A-fib with RVR requiring supplemental oxygen, monitoring on telemetry and intravenous rate control agents. Risk of decompensation if discharged. Future Scheduled Tests Laboratory* Basic Metabolic Panel 02/07/24 * Basic Metabolic Panel 12/10/24 * Basic Metabolic Panel 02/19/24 * Magnesium Level 02/07/24 * Complete Blood Count 08/27/24 * Complete Metabolic Panel 08/27/24 * N-Terminal proBNP 08/27/24 [facility] 06-29-2025 History and physical note Date of Service November 24, 2024 Chief Complaint Palpitations, shortness of breath History of Present Illness This is a 54-year-old male with a past medical history consistent with COPD, tobacco abuse, atrial fibrillation, T2DM, recent ankle fracture with scheduled operative repair tomorrow at an outside facility right presents from [facility] as a transfer for palpitations in the setting ofA-fib with RVR. Patient takes home Tikosyn and states that he has been compliant with his regimen. Found to be short of breath with palpitations and in the ER found to be in A-fib with RVR with a rate of 140. Other pertinent labs, found to be hypomagnesemic at 1.6, proBNP was elevated at 5300. Lactic acid was within normal limits. CTA chest revealed no acute cardiopulmonary process, no commentary on volume overload.. Patient was given Cardizem bolus in the [facility] ED, no further therapy given due to BP drop. On exam, patient states that his work of breathing is improved. Was placed on 2 L nasal cannula in setting of A-fib with RVR. Denies chest pain, palpitations at this time. Had report of visual disturbance, hallucinations. States this happened once while in [place]. Denies any other new or acute complaints. Review of Systems Complete detailed review of systems obtained and all pertinent positives and negatives are noted inthe history of present illness. Physical Exam Vitals and Measurements HT: 177.8 cm WT: 126 kg BMI: 39.86 Weight Dosing Weight: 126 kg (11/24/24) Physical Examination General: No apparent distress. Alert and appropriate. HEENT: NCAT EOMI Neck: Supple. No appreciable elevation in JVP. Cardiovascular: S1 S2 normal. No extra-audible heart tones. Respiratory: Bilaterally clear breath sounds with no crepitation or wheeze. Abdominal: Soft, nontender and nonrigid. No guarding. Bowel sounds present. Extremities: 2+ edema. Adequate peripheral circulation. Neurological: Grossly intact without focal deficit. Cerebellar function preserved. Skin: External fixator around right ankle fracture Lab Results No 36 Hour Lab Data Imaging Results and Diagnostics CTA chest, personally reviewed, no acute cardiopulmonary process EKG A-fib with RVR, personally reviewed Assessment/Plan Acute hypoxic respiratory failure Atrial fibrillation with rapid ventricular response Elevated proBNP Hypomagnesemia History of COPD T2DM Recent ankle fracture, patient will need to reschedule operative repair with OSH Visual hallucination The patient was admitted to stepdown for management of acute hypoxic respiratory failure in the setting of A-fib with RVR. In terms of rate management, monitor patient on telemetry, keep magnesium at 2, potassium of 4. 5 mg IV Lopressor every 5 minutes x 3 doses ordered. Cardiology is consulted, appreciate recommendations. Check TSH. 2D echo was ordered. Patient currently on 2 L nasal cannula, will order CXR to assess for possible fluid overload, no commentary on fluid overload on CT chest. Patient given 40 mg IV Lasix upon arrival. Daily weight, fluid restriction to 2000 cc. Strict I/O. Patient's visual hallucinations have resolved. Could be due to to hypoxia, elevated BP, and medication effect. Continue to monitor. No focal deficits on exam. CBC and BMP are ordered daily and replete electrolytes as necessary. ADA diet in place, regular Accu-Cheks in setting of T2DM. Sliding scale insulin is in place. The labs, the imaging, the EKG were personally reviewed. The case was transferred under the direction of my colleague. DVT prophylaxis: Heparin The patient is a full code The patient will require 2 midnight stay for management of hypoxia in the setting of A-fib with RVRrequiring supplemental oxygen, monitoring on telemetry and intravenous rate control agents. Risk ofdecompensation if discharged. Problem List/Past Medical History Ongoing Asthma exacerbation [...] 20 mg = 1 cap(s), Oral, qDay Nexletol 180 mg oral tablet 180 mg [...] subcutaneous solution 1.5 mg, Subcutaneous, qWeek Tylenol 1,000 mg, PRN, Oral, q4h Vistaril 25 mg oral capsule 25 mg = 1 cap(s), PRN, Oral, QID Xarelto 20 mg oral tablet 20 mg = 1 tab(s), Oral, qHS Allergies Statins myalgia Social History Alcohol Use: Past., 07/11/2022 Home/Environment Living situation: Home/Independent. Domestic Concerns: None. Lives In: Single level home., 10/17/2024 Nutrition/Health Type of diet: Regular. Caffeine intake amount: no caffeine. Appetite Good. Eating Difficulties None., 10/17/2024 Substance Abuse Use: Never., 07/11/2022 Tobacco Nicotine Use: Former smoker, quit more than 30 days ago., 11/24/2024 Nicotine Use: Former smoker, quit more than 30 days ago, former chewer of tobacco. Type: Oral (Snuff, Chew). Smokeless Tobacco Use: Former smokeless tobacco user, quit more than 30 days ago, stopped snuff October 2022., 01/12/2024 Family History Cancer: Father. Heart disease: Mother and Grandparent. Stroke: Father. Health Status Family Member(s) Immunizations pneumococcal 13-valent conjugate vaccine: 0.5 unknown unit (04/12/22) SARS-CoV-2 (COVID-19) mRNA-1273 vaccine: 0 unknown unit (09/11/20) SARS-CoV-2 (COVID-19) mRNA-1273 vaccine: 0 unknown unit (08/14/20) Code Status Code Status - Ordered -- 11/24/24 12:19:00 EDT, Full Code, Constant Order Digitally Signed by KARLENE BARCENAS DO on 11/24/2024 01:02 PM [facility] [id number] Note* Exam Date Time Procedure Performing Provider Status 11/24/24 5:[address] Angiography Chest w/ Contrast DARNELL MOLINA MD; Auth (Verified) [id number] ORIGINAL EXAMINATION: CTA OF THE CHEST 11/24/2024 5:50 am TECHNIQUE: CTA of the chest was performed after the administration of intravenous contrast. Multiplanar reformatted images are provided for review. MIP images are provided for review. Automated exposure control, iterative reconstruction, and/or weight based adjustment of the mA/kV was utilized to reduce the radiation dose to as low as reasonably achievable. COMPARISON: Chest x-ray on 10/02/2024. CT chest on 10/25/2022 HISTORY: ORDERING SYSTEM PROVIDED HISTORY: Reason for Exam: Pulmonary embolism (PE) suspected, low to intermediate prob, positive D-dimer FINDINGS: Pulmonary Arteries: Pulmonary arteries are adequately opacified for evaluation. No evidence of intraluminal filling defect to suggest pulmonary embolism. Main pulmonary artery is dilated measuring 3.9 cm Mediastinum: Cardiomegaly is stable. There is no pericardial fluid. No atherosclerotic coronary artery calcification is present. Thoracic aorta is nonaneurysmal. There is no mediastinal mass or lymph node enlargement. Lungs/pleura: There is no lung infiltrate or edema. No pleural fluid or pneumothorax is present. Upper Abdomen: Liver has nodular contour consistent with cirrhosis. Spleen is enlarged measuring up to 19 cm. Soft Tissues/Bones: No acute bone or soft tissue abnormality. Bilateral gynecomastia is noted. IMPRESSION: 1. No evidence of pulmonary embolism or acute cardiopulmonary process. 2. Enlarged main pulmonary artery can be a sign of pulmonary hypertension 3. Stable cardiomegaly. 4. Cirrhosis with splenomegaly. Gynecomastia. Interpreted by: Darnell Molina MD Preliminary Report By: Darnell Molina MD Electronically signed By Darnell Molina MD Dictated Date: 11/24/2024 5:56:10 AM Prelim Date: 11/24/2024 6:01:11 AM Sign Date: 11/24/2024 6:01:11 AM Ordering Provider: CIRILO PATEL Interpreted by: Darnell Molina MD Preliminary Report By: Darnell Molina MD Electronically signed By Darnell Molina MD Dictated Date: 11/24/2024 5:56:10 AM Prelim Date: 11/24/2024 6:01:11 AM Sign Date: 11/24/2024 6:01:11 AM [facility]ing [facility] Exam Date Time Procedure Performing Provider Status 11/24/24 5:[address] Head or Brain w/o Contrast DARNELL MOLINA MD; Auth (Verified) [id number] ORIGINAL EXAMINATION: CT OF THE HEAD WITHOUT CONTRAST 11/24/2024 5:48 am TECHNIQUE: CT of the head was performed without the administration of intravenous contrast. Automated exposure control, iterative reconstruction, and/or weight based adjustment of the mA/kV was utilized to reduce the radiation dose to as low as reasonably achievable. COMPARISON: CT head on 01/30/2024 HISTORY: ORDERING SYSTEM PROVIDED HISTORY: Reason for Exam: hallucinations FINDINGS: BRAIN/VENTRICLES: There is no acute intracranial hemorrhage, mass effect or midline shift. No abnormal extra-axial fluid collection. The curry-white differentiation is maintained without evidence of an acute infarct. There is no evidence of hydrocephalus. ORBITS: The visualized portion of the orbits demonstrate no acute abnormality. SINUSES: The visualized paranasal sinuses and mastoid air cells demonstrate no acute abnormality. SOFT TISSUES/SKULL: No acute abnormality of the visualized skull or soft tissues. IMPRESSION: No acute intracranial abnormality. Interpreted by: Darnell Molina MD Preliminary Report By: Darnell Molina MD Electronically signed By Darnell Molina MD Dictated Date: 11/24/2024 5:54:25 AM Prelim Date: 11/24/2024 5:55:14 AM Sign Date: 11/24/2024 5:55:14 AM Ordering Provider: CIRILO PATEL Interpreted by: Darnell Molina MD Preliminary Report By: Darnell Molina MD Electronically signed By Darnell Molina MD Dictated Date: 11/24/2024 5:54:25 AM Prelim Date: 11/24/2024 5:55:14 AM Sign Date: 11/24/2024 5:55:14 AM Ordering Provider: CIRILO ESALURDES [facility]06-29-2025 Note* Exam Date Time Procedure Performing Provider Status 11/24/24 4:05 AM EKG [ED AOH] - CV CIRILO PATEL DO ; Auth (Verified) ECG Final Report Atrial fibrillation Markedly posterior QRS axis Anteroseptal infarct, old Minimal ST depression, lateral leads Baseline wander in lead(s) II,aVR Compared to ECG at 10/16/2024 22:24:26 ABNORMAL ECG Electronic Signature: CIRILO PATEL DO 11/24/2024 04:10:26 [facility]05-28-2025 Hospital Discharge instructions Patient Education 10/23/2024 17:07:48 How to [...] ends of all four legs. A front-wheeled walkerhas wheels on the ends of the front legs and rubber tips on the ends of the back legs. Do not use your walker on stairs or an escalator unless you have been trained by a physical therapist and your health care provider approves. Standard walker 1.hot wound spring production supervisor your walker. Do not slide your standard walker. 2.Set down your walker, one step-length in front of you. Make sure that all four legs of the walkertouch the ground at the same time. Your [...] and your stronger leg is bent and nearyour chair. 4.Position your hands. If your chair [...] chair or sofa is hard to get outof. How to sit down with a walker [...] 05/15/2006 Document Revised: 04/10/2019 Document Reviewed: 04/10/2019 [employer] Patient Education 2020 [employer] 10/23/2024 17:07:24 How to Care for [...] bone on each side of the break andare attached to a metal or carbon fiber azar with nuts. When the bone is fully healed, the external fixator is removed. The type of external fixator that you have will depend on which bone is broken. Most people need anexternal fixator for 6 12 weeks. Sometimes, it [...] by your health care provider. Pin sites arethe spots where the pins go through your [...] the pin, where it meets your skin. Usea circular motion. If your skin has moved [...] moistened with rubbing alcohol and water to cleanthe frame. 2.After you clean the frame, wipe it dry with a towel. 3.Use a new gauze square or clean washcloth, and a clean towel for each cleaning. Follow these instructions at home: Bathing Do not take baths, swim, or use a hot tub until your health care provider approves. Ask your healthcare provider if you may take showers. You may only be allowed to take sponge baths. When you are allowed to shower, ask your health care provider if you need to cover your external fixator with a waterproof covering. General instructions Take hxkw-abs-ehkstse and prescription medicines only as told by [...] 01/25/2012 Document Revised: 07/12/2019 Document Reviewed: 07/15/2019 [employer] Patient Education 2020 [employer]. Follow Up Care 10/16/2024 16:12:44 With:[facility], skilled, Address:Unknown When:1-2 days With:GIRMA CORREA Address: [address] [place] [address]- [phone] Business (1) When:1-2 days With:NANI QUINTANA DO Orthopedic Address: [address] [facility] [place] [address] [phone] When:3-7 days Comments:Please call office SARA to confirm/verify follow up appointment. [facility] 05-28-2025 Note Discharge Instructions Thank you for allowing [facility] to assist you with your healthcare needs. The following is importantdischarge information regarding your hospital visit. Your Care Team GIRMA CORREA Your Diagnosis Closed displaced bimalleolar fracture of right ankle Post-op pain Shortness of breath What to do next Scheduled Follow-Up Appointments Appointment Type When With Where Contact Information StatusCV Hospital Follow Up 11/08/2024 02:30 PM EDT [facility] 11/12/2024 03:30 PM EDT GIRMA CORREA [facility] Confirmed Follow Up Appointments Follow Up with [facility], [facility], When:Within 1-2 days Follow Up with GIRMA CORREA When:Within 1-2 days Where:[address] [place] [address] [phone] Business (1) Follow Up with NANI QUINTANA DO Orthopedic When:Within 3-7 days Where:[address] [facility] [place] [address] [phone] Additional Information: Please call office SARA to confirm/verify follow up appointment. The Following Activity and Diet Have Been Ordered for You Transfer of Care Activity - Ordered -- Other, Nonweightbearing right lower extremity. 50% partial weightbearing left lower extremity susan boot., 10/23/24 15:20:00 EDT Transfer of Care [...] over fracture blisters daily. Xeroform followed by 4x 4's., 10/23/24 15:20:00 EDT The Following Treatments [...] Post-op pain Duration: 7 Days Pickup at [facility]/pharmacy #[id number] Unchanged albuterol (albuterol 2.5 mg/ 3 mL [...] by mouth Daily at bedtime Pharmacy Information [facility]/pharmacy #[id number]: [address], [place] [phone] Please take this list to your next [...] someone with a history of drug abuse oraddiction. MISUSE CAN CAUSE ADDICTION, OVERDOSE, OR . [...] may report side effects to FDA at [phone]. What other drugs will affect acetaminophen and [...] affect acetaminophen and oxycodone, including prescription and tojk-prp-jseneaq medicines, vitamins, and herbal products. Not all [...] to ensure that the information provided by [employer]') is accurate, up-to-date, and complete, but no guarantee is made to that effect. Drug information contained herein may be time sensitive. [employer] information has been compiled for use by healthcare practitioners and consumers in the [place] and therefore [employer] does not warrant that uses outside of the [place] are appropriate, unless specifically indicated otherwise. [employer] drug information does not endorse drugs, diagnose patients or recommend therapy. [employer] drug information isan informational resource designed to [...] effective or appropriate for any given patient. [employer] does not assume any responsibility for any aspect of healthcare administered with the aid of information [employer] provides. The information contained herein is not intended to cover all possible uses, directions, precautions, warnings, drug interactions, allergic reactions, or adverse effects. If you have questions about the drugs you are taking, check with your doctor, nurse or pharmacist. Copyright 0992-4510 [employer] Version: 22.01. Revision Date: 12/29/2022. Education Materials [...] ends of all four legs. A front-wheeled walkerhas wheels on the ends of the front legs and rubber tips on the ends of the back legs. Do not use your walker on stairs or an escalator unless you have been trained by a physical therapist and your health care provider approves. Standard walker 1. hot wound spring production supervisor your walker. Do not slide your standard [...] chair or sofa is hard to get outof. How to sit down with a walker [...] hand to hold on to the front ofthe seat. 3. Slowly lower yourself into the [...] 05/15/2006 Document Revised: 04/10/2019 Document Reviewed: 04/10/2019 [employer] Patient Education 2020 [employer]. How to Care for an External [...] bone on each side of the break andare attached to a metal or carbon fiber azar with nuts. When the bone is fully healed, the external fixator is removed. The type of external fixator that you have will depend on which bone is broken. Most people need anexternal fixator for 6 12 weeks. Sometimes, it [...] by your health care provider. Pin sites arethe spots where the pins go through your [...] pin, where it meets your skin. Use acircular motion. If your skin has moved up [...] site where the pin exits the skin orpain at the site of the break. ? [...] your health care provider approves. Ask your healthcare provider if you may take showers. You may only be allowed to take sponge baths. When you are allowed to shower, ask your health care provider if you need to cover your external fixator with a waterproof covering. General instructions Take mtag-tln-vzoctkd and prescription medicines only as told by [...] 07/12/2019 Document Reviewed: 07/15/2019 Elsevier Patient Education 2020 [employer]. Additional Information VACCINATE! IT SAVES LIVES! Members of the community who have not yet received the COVID-19 vaccine and would like to receive it can visit one of [facility] vaccine clinics. There are many vaccine clinic locations within the [facility]. For locations and available times, please visit https://gettheshot.coronavirus.[place].gov/. It is important to note that some COVID mobile vaccine clinics are held outdoors and may be canceled in rainy or stormy conditions. To learn more about pediatric vaccinations (ages 5-11), we invite you to visit the [facility] webpage. https://www.[facility].org/pages/9789-Lylug-Iazyvzzmeid-Lveqysvtbi-Hutmm-Dje stions.htmlTo learn more about the COVID-19 vaccine, we invite you to visit the CDC website for a list of frequently asked questions.https://www.cdc.gov/coronavirus/2019-ncov/vaccines/faq.html [facility] Patient Portal Access Instructions: Stay connected with your healthcare team and access your personal medical information anytime with the [facility] Patient Portal. Please follow the directions below to create your [facility] account: 1.Access the email account you provided upon registration to the hospital/physician office.2.Look for an invitation email from [facility].3.Open the email and access the invitation link: AcceptInvitation to [facility].4.Fill in the required orr to create your account. To access your account, visit [employer]ChargemasterOneChart. Click the blue button labeled Access Patient [...] who you will allowto register on the [facility] for access to your information. You can also access the [facility] Patient Portal on the [facility] frida. Simply click on Patient Portal and then log into your account. If you would like to receive a full copy of your medical records, please contact the [facility] Medical Records Department by calling [phone], Monday through Monday between 8 a.m. and [...] Call your local pharmacy or go to http://Silversky.Play for Job/7A2Wg4w to find one close to you.3.Make use of household items: Use cat litter or old coffee grounds to dispose medications if other options arenot available. Mix your drugs with these household products, seal them in an airtight container andthrow it into the garbage. Call [facility]: [phone] to be sure your drugs can be [...] aware that I should contact my doctor. 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 Signature: Date/Time: Relationship to Patient: Witness Name/Signature: Date/Time: [facility] HospitalKjzldwgg71-96-0502 Note Discharge Instructions Thank you for allowing [facility] to assist you with your healthcare needs. The following is importantdischarge information regarding your hospital visit. Your Care Team GIRMA CORREA MERCURY CRACKING TESTER-PARER Your Diagnosis Closed displaced bimalleolar fracture of right ankle Post-op pain Shortness of breath What to do next Scheduled Follow-Up Appointments Appointment Type When With Where [facility] Up 11/08/2024 02:30 PM EDT EDY WEBER [facility] Edy CVC Confirmed PC OV 11/12/2024 03:30 PM EDT GIRMA CORREA APRN-PARER [facility] Confirmed Follow Up Appointments Follow Up with [facility], skilled, When:Within 1-2 days Follow Up with GIRMA CORREA When:Within 1-2 days Where:[address] [place] [address]- [phone] Business (1) Follow Up with NANI QUINTANA DO, Orthopedic When:Within 3-7 days Where:[address] [facility], [place] [phone] Additional Information: Please call office SARA to confirm/verify follow up appointment. The Following Activity and Diet Have Been Ordered for You Transfer of Care Activity - Ordered -- Other, Nonweightbearing right lower extremity. 50% partial weightbearing left lower extremity susan boot., 10/23/24 15:20:00 EDT Transfer of Care [...] over fracture blisters daily. Xeroform followed by 4x 4's., 10/23/24 15:20:00 EDT The Following Treatments [...] Post-op pain Duration: 7 Days Pickup at [facility]/pharmacy #[id number] Unchanged albuterol (albuterol 2.5 mg/ 3 mL [...] by mouth Daily at bedtime Pharmacy Information [facility]/pharmacy #[id number]: [address], [place] [phone] Please take this list to your next [...] to receive it can visit one of [facility] vaccine clinics. There are many vaccine clinic locations within the [facility]. For locations and available times, please visit https://gettheshot.coronavirus.[place].gov/. It is important to note that some COVID mobile vaccine clinics are held outdoors and may be canceled in rainy or stormy conditions. To learn more about pediatric vaccinations (ages 5-11), we invite you to visit the [facility] webpage. https://www.[facility].org/pages/0557-Ohnli-Kofrvhqykll-Otgyqswaix-Rtdpi-Xyf stions.htmlTo learn more about the COVID-19 vaccine, we invite you to visit the CDC website for a list of frequently asked questions.https://www.cdc.gov/coronavirus/2019-ncov/vaccines/faq.html [facility] Patient Portal Access Instructions: Stay connected with your healthcare team and access your personal medical information anytime with the [facility] Patient Portal. Please follow the directions below to create your [facility] account: 1.Access the email account you provided upon registration to the hospital/physician office.2.Look for an invitation email from [facility].3.Open the email and access the invitation link: AcceptInvitation to [facility].4.Fill in the required orr to create your account. To access your account, visit [employer]/Standard[employer] Safetyt. Click the blue button labeled Access Patient [...] who you will allowto register on the [facility] Patient Portal for access to your information. You can also access the [facility] Patient Portal on the [employer] frida. Simply click on Patient Portal and then log into your account. If you would like to receive a full copy of your medical records, please contact the [facility] Medical Records Department by calling [phone], Monday through Monday between 8 a.m. and [...] Call your local pharmacy or go to http://Silversky.Play for Job/6J0Ht9n to find one close to you.3.Make use of household items: Use cat litter or old coffee grounds to dispose medications if other options arenot available. Mix your drugs with these household products, seal them in an airtight container andthrow it into the garbage. Call [facility]: [phone] to be sure your drugs can be [...] aware that I should contact my doctor. 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 Signature: Date/Time: Relationship to Patient: Witness Name/Signature: Date/Time: [facility] HospitalHaeketdn37-17-5014 Orthopaedic surgery Progress note Date of Service [...] concerned. He denies any nausea, vomiting, diarrhea, chestpain, lightheadedness. Objective Vitals and Measurements T: 37 [...] obturator, femoral, LCN, DPN, SPN, sural, saphenous, M/LOG SORTING SUPERVISOR - Calf soft and non-tender Left Lower Extremity - No pain to left lower extremity. Walking boot in place when patient is ambulating - Motor: Hip flexion/extension, quadriceps, hamstrings, gastruc/soleus, EHL/FHL intact. - DP and PT pulse 2+. Foot warm and perfused. BCR - Sensation grossly intact L2-S2: obturator, femoral, LCN, DPN, SPN, sural, saphenous, M/LOG SORTING SUPERVISOR - Calf soft and non-tender Weight [...] placement per case management Digitally Signed by SUZE MISHRA DO on 10/23/2024 07:03 AM [facility] [id number] Orthopaedic surgery Progress note Date of Service [...] concerned. He denies any nausea, vomiting, diarrhea, chestpain, lightheadedness. Objective Vitals and Measurements T: 37 [...] obturator, femoral, LCN, DPN, SPN, sural, saphenous, M/LOG SORTING SUPERVISOR - Calf soft and non-tender Left Lower Extremity - No pain to left lower extremity. Walking boot in place when patient is ambulating - Motor: Hip flexion/extension, quadriceps, hamstrings, gastruc/soleus, EHL/FHL intact. - DP and PT pulse 2+. Foot warm and perfused. BCR - Sensation grossly intact L2-S2: obturator, femoral, LCN, DPN, SPN, sural, saphenous, M/LOG SORTING SUPERVISOR - Calf soft and non-tender Weight [...] placement per case management Digitally Signed by SUZE MISHRA DO on 10/23/2024 07:03 AM [facility] [id number] Orthopaedic surgery Progress note Date of Service [...] obturator, femoral, LCN, DPN, SPN, sural, saphenous, M/LOG SORTING SUPERVISOR - Calf soft and non-tender Left Lower Extremity - No pain to left lower extremity. Walking boot in place when patient is ambulating - Motor: Hip flexion/extension, quadriceps, hamstrings, gastruc/soleus, EHL/FHL intact. - DP and PT pulse 2+. Foot warm and perfused. BCR - Sensation grossly intact L2-S2: obturator, femoral, LCN, DPN, SPN, sural, saphenous, M/LOG SORTING SUPERVISOR - Calf soft and non-tender Weight [...] placement per case management Digitally Signed by SUZE MISHRA DO on 10/22/2024 05:51 AM [facility] HospitalHfekpjkl60-08-0029 Orthopaedic surgery Progress note Date of Service [...] obturator, femoral, LCN, DPN, SPN, sural, saphenous, M/LOG SORTING SUPERVISOR - Calf soft and non-tender Left Lower Extremity - No pain to left lower extremity. Walking boot in place when patient is ambulating - Motor: Hip flexion/extension, quadriceps, hamstrings, gastruc/soleus, EHL/FHL intact. - DP and PT pulse 2+. Foot warm and perfused. BCR - Sensation grossly intact L2-S2: obturator, femoral, LCN, DPN, SPN, sural, saphenous, M/LOG SORTING SUPERVISOR - Calf soft and non-tender Weight [...] placement per case management Digitally Signed by SUZE MISHRA DO on 10/22/2024 05:51 AM [facility] [id number] Orthopaedic surgery Progress note Date of Service [...] SANDRA GARCIA DO on 10/21/2024 10:00 AM [facility] [id number] Orthopaedic surgery Progress note Date of Service [...] SANDRA GARCIA DO on 10/21/2024 10:00 AM [facility] [id number] Pastoral care Progress note Pastoral Care Note Entered On: 10/18/2024 16:52 EDT Performed On: 10/18/2024 14:50 EDT by Sanjay Lucas Type of Pastoral Visit : Initial visit [...] how he is handling it all. I offeredto come back for listening ear or whatever he might need from Spiritual Care. He was grateful. Leftmy card. Pastoral Care Visit Length : 15 minute(s) Sanjay Lucas - 10/18/2024 16:50 EDT Digitally Signed by Sanjay Lucas on 10/18/2024 04:50 PM [facility] HospitalGcddkmly67-06-1343 Note PIN care completed by bedside RN. Ortho approved protocol orders for care daily. Digitally Signed by SHAHEEN Lou on 10/18/2024 01:37 PM [facility] HospitalUuprbcfl78-30-1085 Note Date of Service 10/18/2024 Chief Complaint [...] insulin while inpatient, blood sugars have been well- controlled. Resume homeTrulicity at discharge Continue all other home medications [...] by GROVER HOFFMAN on 10/18/2024 01:11 PM [facility] HospitalRccxtjvo77-82-7811 Note* Exam Date Time Procedure Performing Provider Status 10/17/24 1:14 PM XR Fluoro 1-2 Hrs Tech Time KAILEY WAHL DO; Auth (Verified) [id number] ORIGINAL EXAMINATION: FLUORO MD - > 1 HR TECHNIQUE: Total fluoro time is 43.2 seconds. Total exposure is 2.0531 mGy. COMPARISON: CT ankle 10/17/2024, x-ray ankle 10/16/2024. HISTORY: ORDERING SYSTEM PROVIDED HISTORY: Reason for Exam: RIGHT ANKLE FX FINDINGS: Intraoperative fluoroscopic images from external surgical fixation of a distal fibular fracture. IMPRESSION: Intraoperative fluoroscopic images. Please refer to the chipping machine operator's report for further information. I have personally reviewed the images of this examination and agree with the resident's findings and interpretation. Interpreted by: Beau Wahl Preliminary Report By: Nadya Hudson Electronically signed By Beau Wahl Dictated Date: 10/17/2024 1:42:02 PM Prelim Date: 10/17/2024 2:15:08 PM Sign Date: 10/17/2024 2:15:08 PM Ordering Provider: NANI QUINTANA [facility] [id number] Note Date of Service 10/17/2024 Chief Complaint Medical management Subjective This 54-year-old white male with a past medical history of type 2 diabetes mellitus, hypertension, COPD, HFpEF, anxiety, atrial fibrillation on Xarelto and Tikosyn [facility] aftermechanical fall and subsequent ankle pain. [...] (Apical) RR: 16 BP: 105/56 SpO2: 92% HT:177.8 cm WT: 142 kg BMI: 44.92 Intake [...] to time, people and place. Following simple commands,moving all extremities. Weight Dosing Weight: 142 kg [...] Hct: 45.2 Platelet: 172 Neutrophil %: 67.5 05/21 22:08 Glucose Level: 109 Sodium Level: 139 [...] by GROVER HOFFMAN on 10/17/2024 12:52 PM [facility] [id number] Anesthesiology Consult note Patient: CARLOS ALBERTO KELLEY Age: 54 years Sex: Male : [...] CHANTAL WHEATLEY DO on 10/17/2024 11:13 AM [facility]Xarwepwu27-[facility]-2007 Note* Exam Date Time Procedure Performing Provider Status 10/17/24 10:[address] Ankle w/o Contrast Right KATHY REVELES MD; Auth (Verified) [id number] ORIGINAL EXAMINATION: CT OF THE RIGHT ANKLE [...] spanning external fixator, multiplanar 10/17. transfer from [facility]. for right ankle fracture with dislocation. Surgical [...] Sign Date: 10/17/2024 1:17:29 PM Ordering Provider: SUZE MISHRA [facility] [id number] History and physical note Date of Service 10/16/2024 Chief Complaint Pt here from [facility] via squad after a mechanical fall causing a fracture to his right ankle. They splinted it in their ED and sent to [place] for surgical consult. History of Present Illness Patient is a 54-year-old male who presents to the [facility] emergency department as a transfer from [facility] for his right ankle fracture. [...] Blood, q24h, for 5 day(s), Preferred Lab: [facility], Stop date 10/20/24 22:00:00 EDT Bedrest, [...] Blood, q24h, for 5 day(s), Preferred Lab: [facility], Stop date 10/20/24 22:00:00 EDT Complete Metabolic Panel(CMP), 10/16/24 21:21:00 EDT, URGENT (collect within 2 hrs), Blood, Once, Nurse Collect, Preferred Lab: [facility], Stop date 10/16/24 21:37:00 EDT Consult to Physician, 10/16/24 21:21:00 EDT, HOSPITALISTLARRY (For Consultation Assignment OnlyNO other Orders), Routine, medical clearance, follow medically Diet Order, 10/16/24 21:21:00 EDT, Start Meal: Next meal, Regular, Constant Order, : N/A, : N/A Electrocardiogram(EKG), 10/16/24 21:21:00 EDT, Complete by Nursing Incentive Spirometer, 10/16/24 21:21:00 EDT, [id number] Intake and Output, 10/16/24 21:21:00 EDT, q8h (2p, 10p, 6a) IV Catheter Insertion/Care(Peripheral IV Insertion/Care), 10/16/24 21:21:00 EDT, IV Care: Once, 18 gauge angiocath, if possible Pulse Oximeter - Intermittent, 10/16/24 21:21:00 EDT, AsDirected, PRN order, On admission and as indicated Type and Screen, 10/16/24 21:21:00 EDT, URGENT (collect within 2 hrs), Blood, Once, Nurse Collect, Preferred Lab: [facility], Stop date 10/16/24 21:21:00 EDT Vital [...] RIC ARELLANO DO on 10/16/2024 09:43 PM [facility] HospitalBsseszap92-10-3134 Anesthesiology Consult note Patient: CARLOS ALBERTO KELLEY Age: 54 years Sex: Male : [...] list: Medical Asthma exacerbation / SNOMED CT 3251617303 / Confirmed COPD exacerbation / SNOMED CT 9362630332 / Confirmed Atopic dermatitis / SNOMED CT 03727555 / Confirmed Atypical chest pain / SNOMED CT 458665455 / Confirmed Morbid obesity with BMI of 40.0-44.9, adult / SNOMED CT 3273244396 / Confirmed Bronchitis / SNOMED CT 60989932 / Confirmed Cardiomyopathy / SNOMED CT 361898225 / Confirmed CHF with cardiomyopathy / SNOMED CT 66702923 / Confirmed Cough / SNOMED CT 52321306 / Confirmed Dental abscess / SNOMED CT 240108481 / Confirmed Depression / SNOMED CT 84296120 / Confirmed Dyspnea / SNOMED CT 526935220 / Confirmed Generalized anxiety disorder / SNOMED CT 37130490 / Confirmed Hypertension associated with type 2 diabetes mellitus / SNOMED CT 0646397502 / Confirmed Insomnia / SNOMED CT 045733873 / Confirmed LVH (left ventricular hypertrophy) / SNOMED CT 32560060 / Confirmed Moderate asthma / SNOMED CT 7213980049 / Confirmed Near syncope / SNOMED CT 1198541344 / Confirmed Chewing tobacco nicotine dependence / SNOMED CT 28099079 / Confirmed KOFFI (obstructive sleep apnea) / SNOMED CT 755382498 / Confirmed Right knee pain / SNOMED CT 8497343934 / Confirmed Paroxysmal atrial fibrillation / SNOMED CT 525329931 / Confirmed Screening for ischemic heart disease / SNOMED CT 774959761 / Confirmed Screening for colon cancer / SNOMED CT 897950318 / Confirmed Statin intolerance / SNOMED CT 0694355441 / Confirmed Tachyarrhythmia / SNOMED CT 59009901 / Confirmed Type 2 diabetes mellitus with hemoglobin A1c goal of less than 7.0% / SNOMED CT 683520961 / Confirmed Type 2 diabetes mellitus with hyperlipidemia / SNOMED CT 613170703 / Confirmed, Active Problems (32) Asthma exacerbation [...] Histories Past Medical History: Resolved Morbid obesity (918245557): Resolved. Diabetes mellitus (851000131): Resolved. Hypertension (5035211071): Resolved. BMI 45.0-49.9, adult (6558666432): Resolved. Anxiety (24564039): Resolved. Prediabetes (6483183272): Resolved. Obstructive sleep apnea (733148371): Resolved. Right flank pain (562792109): Resolved. Hyperlipidemia (04164887): Resolved. Mass of arm (126623149): Resolved. Family History: Cancer Father Heart disease Mother Grandparent Stroke Father Procedure history: Excision ([id number]) on 03/25/2024 at 53 Years. 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 Cardioversion (030882657) on 12/23/2022 at 52 Years. Echocardiogram ([id number]) on 11/11/2022 at 52 Years. Comments: 03/20/2023 [...] atrial pressure is 15 mm Hg Elbow (9318578756). Comments: 07/11/2022 8:26 SHAHEEN Nunez bursjordi - right Social History: Social & [...] Temp Oral36.7 DegC (OCTOBER 17:12) Heart Rate Faavzjtzs98 bpm (OCTOBER 17 00:00) GHA483 mmHg (OCTOBER 17:12) DBP82 mmHg (OCTOBER 17:12) BMI44.92 (OCTOBER 17:29) Measurements from flowsheet : Measurements 10/17/2024 1:29 EDT Height 177.8 cm Height in inches 70 inch(es) Admission Weight 142 kg Weight Lbs 312.4 lb Davilla Body Weight 73.00 kg Type of Scale [...] PRN medication effectiveness Partial Nail Bed Color Ozone Capillary Refill < 2 seconds Dorsalis Pedis Pulse, Left 2+ Normal Radial Pulse, Left 2+ Normal Radial Pulse, Right 2+ Normal Respirations Unlabored Respiratory Pattern Regular All Lobes Breath Sounds Clear Abdomen Description Non-distended, Rounded Abdomen Palpation Non-Tender Passing Flatus Yes Bowel Sounds All Quadrants Present Skin Description Ozone, Dry Skin Temperature Warm Skin Integrity Pressure points intact Skin Turgor Elastic All Extremity Description Ozone, Normal for ethnicity Temperature All Extremities Warm Mucous Membrane Color Ozone Mucous Membrane Description Moist Ankle Right Incision, Wound Dressing/Activity: Assessed Incision, Wound Dressing: Elastic wrap bandage Wound Associated Pain: With activity, mobilization Buttock Inferior, Inner Skin Abnormality Type: Non-pressure ulcer Skin Abnormality Color: Ozone, Red Incision, Wound Surrounding Tissue: Normal skin [...] EDT Designated Person #1 We May Share [facility] [phone] Designated Person #1 Relationship Sibling Designated Person #2 We May Share PHI Designated Person #2 We May Share [facility] Privacy Restrictions Requested None Height 177.8 cm Height in inches 70 inch(es) Admission Weight 142 kg Weight Lbs 312.4 lb Davilla Body Weight 73.00 kg Type of Scale [...] evident Teaching Method Explanation Preferred Spoken Language Cymro Preferred Written Language Cymro Disease Process General Education Signs/Symptoms to report, [...] Positive/Diagnosis w/COVID-19 Yes Previous COVID-19 Positive Date 2019 Current Quarantine/Isolated any Illness No Any [...] 10/16/2024 16:28 EDT Status N/A [facility] Screen ED/QUALITY IMPROVEMENT COORDINATOR (RN) patient History of Fall in Last 3 [...] Needs reinforcement Chief Complaint Pt here from [facility] via squad after a mechanical fall causing a fractureto his right ankle. They splinted it in their ED and sent to [place] for surgical consult. Place Where Injury/Illness Occurred Other: [facility] Anticoagulants Taken In Past 6 Wks. [...] Non-distended, Symmetric Abdomen Palpation Non-Tender Skin Description Ozone, Normal for ethnicity, Dry Skin Temperature Warm Mucous Membrane Color Ozone Mucous Membrane Description Moist Neurological Symptoms Patient denies Level of Consciousness Alert Eye Opening Response Luis Felipe Spontaneously Best Motor Response Luis Felipe Obeys simple commands Best Verbal Response Luis Felipe Oriented [place] Coma Score 15 CLARA Yes Left Upper [...] No Weight Loss No Preferred Spoken Language Cymro Preferred Written Language Cymro Tracking Group ED Tracking Group Tracking Acuity 3 ED Diabetic Patient No Mode of Transfer Ground ambulance Ambulance Service [facility] Positioning Repositions self Standard Safety ID [...] ED Triage Adults . Assessment and Plan [employer] (ASA) physical status classification: [...] diabetes mellitus with hyperlipidemia Historical Anxiety Diabetes [facility] Hyperlipidemia Hypertension Mass of arm Obstructive sleep apnea Prediabetes Right flank pain . Digitally Signed by MELISSA MARIN MD on 10/17/2024 06:21 AM Digitally Signed by DELORES BRAVO on 10/17/2024 07:17 AM [facility] HospitalJsqrahgw29-86-0848 Note Date of Service October 16, 2024 [...] KARLENE BARCENAS DO on 10/16/2024 10:38 PM [facility] HospitalHanuscfp36-48-1590 Note* Exam Date Time Procedure Performing Provider Status 10/16/24 10:24 PM Electrocardiogram - EKG - CV SA SULY PAULINO MD; Auth (Verified) ECG Final Report SINUS RHYTHM LEFT ANTERIOR FASCICULAR BLOCK LOW VOLTAGE, PRECORDIAL LEADS Electronic Signature: ALIZA PAULINO MD 10/17/2024 18:58:09 [facility] [id number] Note* Exam Date Time Procedure Performing Provider Status 10/16/24 10:07 PM XR Ankle Minimum 3 Views Left TRACE ROUSE MD; Auth (Verified) [id number] ORIGINAL EXAMINATION: THREE XRAY VIEWS OF THE [...] 10/16/2024 10:39:42 PM Ordering Provider: RIC ARELLANO [facility] [id number] History and physical note Date of Service 10/16/2024 Chief Complaint Pt here from [facility] via squad after a mechanical fall causing a fracture to his right ankle. They splinted it in their ED and sent to [place] for surgical consult. History of Present Illness Patient is a 54-year-old male who presents to the [facility] emergency department as a transfer from [facility] for his right ankle fracture. [...] images of this examination and agree with theremadaynt's findings and interpretation. XR Ankle Minimum 3 [...] Blood, q24h, for 5 day(s), [facility], Stop date 10/20/24 22:00:00 EDT Bedrest, 10/16/24:21:00 EDT, Strict, continuous, Constant order Blood Glucose Call Parameter, 10/16/24 21:21:00 EDT, If patient is NPO for x-ray or surgery and hypoglycemic, call physician for further orders, 10/16/24:21:00 EDT Blood Glucose Call Parameter, 10/16/24 21:21:00 [...] Blood, q24h, for 5 day(s), [facility] Lab[facility], Stop date 10/20/24 22:00:00 EDT Complete Metabolic Panel(CMP), 10/16/24 21:21:00 EDT, URGENT (collect within 2 hrs), Blood, Once, Nurse Collect, Preferred Lab: [facility], Stop date 10/16/24 21:37:00 EDT Consult to Physician, 10/16/24 21:21:00 EDT, HOSPITALISTLARRY (For Consultation Assignment OnlyNO other Orders), Routine, medical clearance, follow medically Diet Order, 10/16/24 21:21:00 EDT, Start Meal: Next meal, Regular, Constant Order, : N/A, : N/A Electrocardiogram(EKG), 10/16/24 21:21:00 EDT, Complete by Nursing Incentive Spirometer, 10/16/24 21:21:00 EDT, [id number] Intake and Output, 10/16/24 21:21:00 EDT, q8h (2p, 10p, 6a) IV Catheter Insertion/Care(Peripheral IV Insertion/Care), 10/16/24 21:21:00 EDT, IV Care: Once, 18 gauge angiocath, if possible Pulse Oximeter - Intermittent, 10/16/24 21:21:00 EDT, AsDirected, PRN order, On admission and as indicated Type and Screen, 10/16/24 21:21:00 EDT, URGENT (collect within 2 hrs), Blood, Once, Nurse Collect, Preferred Lab: [facility] facility, Stop date 10/16/24 21:21:00 EDT Vital Signs, [...] RIC ARELLANO DO on 10/16/2024 09:43 PM [facility] HospitalIjxxpkjs31-30-1118 Note* Exam Date Time Procedure Performing Provider Status 10/16/24 8:42 PM XR Ankle Minimum 3 Views Right TRACE ROUSE MD; Auth (Verified) [id number] ORIGINAL EXAMINATION: THREE XRAY VIEWS OF THE [...] 10/16/2024 9:20:54 PM Ordering Provider: RIC ARELLANO [facility] HospitalGkdnxuua95-01-0804 Note* Exam Date Time Procedure Performing Provider Status 10/16/24 7:09 PM XR Ankle Minimum 3 Views Right TRACE ROUSE MD; Auth (Verified) [id number] ORIGINAL EXAMINATION: THREE XRAY VIEWS OF THE [...] 10/16/2024 7:53:07 PM Ordering Provider: EM GARCIA [facility] HospitalNyqwbykj18-16-1847 Note* Exam Date Time Procedure Performing Provider Status 10/16/24 5:43 PM XR Ankle Minimum 3 Views Right TRACE ROUSE MD; Auth (Verified) [id number] ORIGINAL EXAMINATION: THREE XRAY VIEWS OF THE [...] Date: 10/16/2024 6:28:12 PM Ordering Provider: EM [facility]05-21-2025 Evaluation + Plan noteExtracted from: Title:Ortho [...] q24h, for 5 day(s), Preferred Lab: [facility], Stop date 10/20/24 22:00:00 EDT Bedrest, 10/16/24 21:21:00 EDT, Strict, continuous, Constant order Blood Glucose Call Parameter, 10/16/24 21:21:00 EDT, If patient is NPO for x-ray or surgery and hypoglycemic, call physician for further orders, 10/16/24:21:00 EDT Blood Glucose Call Parameter, 10/16/24:: EDT, call provider if patient's blood glucose [...] q24h, for 5 day(s), Preferred Lab: [facility], Stop date 10/20/24 22:00:00 EDT Complete Metabolic Panel(CMP), 10/16/24 21:21:00 EDT, URGENT (collect within 2 hrs), Blood, Once, Nurse Collect, Preferred Lab: [facility], Stop date 10/16/24 21:37:00 EDT Consult to Physician, 10/16/24 21:21:00 EDT, HOSPITALISTLARRY (For Consultation Assignment Only NO other Orders), Routine, medical clearance, follow medically Diet Order, 10/16/24 21:21:00 EDT, Start Meal: Next meal, Regular, Constant Order, : N/A, : N/A Electrocardiogram(EKG), 10/16/24 21:21:00 EDT, Complete by Nursing Incentive Spirometer, 10/16/24:21:00 EDT, [id number] Intake and Output, 10/16/24 21:21:00 EDT, q8h (2p, 10p, 6a) IV Catheter Insertion/Care(Peripheral IV Insertion/Care), 10/16/24 21:21:00 EDT, IV Care: Once, 18 gauge angiocath, if possible Pulse Oximeter - Intermittent, 10/16/24 21:21:00 EDT, AsDirected, PRN order, On admission and as indicated Type and Screen, 10/16/24 21:21:00 EDT, URGENT (collect within 2 hrs), Blood, Once, Nurse Collect, Preferred Lab: [facility] facility, Stop date 10/16/24 21:21:00 EDT Vital Signs, [...] Appointment Date:11/08/2024 02:30:00 PM Scheduled Provider:EDY WEBER Location:[facility] Appointment Type:CV OV Hospital Follow Up Appointment Date:11/12/2024 03:30:00 PM Scheduled Provider:GIRMA CORREA Location:[facility] Appointment Type:PC OV Future Scheduled Tests Laboratory* Basic Metabolic Panel 02/07/24 * Basic Metabolic Panel 12/10/24 * Basic Metabolic Panel 02/19/24 * Magnesium Level 02/07/24 * Complete Blood Count 08/27/24 * Complete Metabolic Panel 08/27/24 * N-Terminal proBNP 08/27/24 [facility] 05-09-2025 Hospital Discharge instructions Patient Education [...] Slowly return to your usual activities. Take qejr-int-zqvnduj and prescription medicines only as told by [...] 02/07/2002 Document Revised: 10/15/2018 Document Reviewed: 10/15/2018 [employer] Patient Education 2020 [employer]. 10/04/2024 21:03:30 Pursed Lip Breathing Pursed Lip [...] exercise. Follow these instructions at home: Take mifc-ueh-pawyvha and prescription medicines only as told by [...] 02/21/2009 Document Revised: 04/27/2018 Document Reviewed: 04/06/2017 [employer] Patient Education 2020 [employer] 10/04/2024 21:03:27 Cough, Adult Cough, Adult [...] Follow these instructions at home: Medicines Take zybv-ksc-oofebgd and prescription medicines only as told by [...] of a condition that needs treatment. Take bkvk-htg-cnjthae and prescription medicines only as told by [...] 11/11/2011 Document Revised: 06/03/2019 Document Reviewed: 06/03/2019 [employer] Patient Education 2020 [employer]. Follow Up Care 10/02/2024 02:08:49 With:readmission score is 13 Address:Unknown When: Unknown With:GIRMA CORREA Address: [address] [place] [address]- [phone] Business (1) When:1-2 days [facility] 05-09-2025 Note Discharge Instructions Thank you for allowing [facility] to assist you with your healthcare needs. The following is importantdischarge information regarding your hospital visit. Your Care Team GIRMA CORREA Your Diagnosis Shortness of breath What to do next Scheduled Follow-Up Appointments Appointment Type When With Where Contact Information StatusPC OV 10/23/2024 04:00 PM EDT GIRMA CORREA [facility] [phone] Confirmed CV OV Hospital Follow Up 11/08/2024 02:30 PM EDT EDY WEBER [facility] Confirmed Follow Up Appointments Follow Up with readmission score is 13 Follow Up with GIRMA CORREA When:Within 1-2 days Where:[address] [place], [place] [phone] Business (1) The Following Activity and Diet [...] within 14 days after discharge, please call [facility] at [phone]. Post Acute Orders No qualifying data available. [...] a day Take with food Pickup at [facility]/pharmacy #[id number] Unchanged acetaminophen (Tylenol) by mouth As needed [...] Two (2) times a day Pickup at [facility]/pharmacy #[id number] Unchanged dulaglutide (Trulicity Pen 1.5 mg/ 0.5 [...] by mouth Daily at bedtime Pickup at [facility]/pharmacy #[id number] Unchanged spironolactone (spironolactone 25 mg oral tablet) 1 tab(s) by mouth Once a day Duration: 90 Days Unchanged tiZANidine (tiZANidine 2 mg oral tablet) 1 tab(s) by mouth Every 8 hours as needed for as needed for muscle spasm Duration: 7 Days Unchanged traZODone (traZODone 100 mg oral tablet) 1 tab(s) by mouth Daily at bedtime Pharmacy Information [facility]/pharmacy #[id number]: [address], [place] [phone] Please take this list to your next doctor s visit. Bring all medications you take, including over the counter medications, herbals and other supplements with you to your doctor s visit. Patients and families are reminded to discard old lists and to update any records with all medication providers or retail pharmacies. Medication Leaflets hydroxyzine (shelley DROX ee zeen) Nimoril What is the most important information I [...] may report side effects to FDA at 0-760-AJC-7808. What other drugs will affect hydroxyzine? Taking [...] may interact with hydroxyzine, including prescription and ayvk-wqo-lqqsqpd medicines, vitamins, and herbal products. Not all [...] to ensure that the information provided by [employer]') is accurate, up-to-date, and complete, but no guarantee is made to that effect. Drug information contained herein may be time sensitive. [employer] information has been compiled for use by healthcare practitioners and consumers in the [place] and therefore [employer] does not warrant that uses outside of the [place] are appropriate, unless specifically indicated otherwise. [employer] drug information does not endorse drugs, diagnose patients or recommend therapy. [employer] drug information isan informational resource designed to [...] effective or appropriate for any given patient. [employer] does not assume any responsibility for any aspect of healthcare administered with the aid of information [employer] provides. The information contained herein is not intended to cover all possible uses, directions, precautions, warnings, drug interactions, allergic reactions, or adverse effects. If you have questions about the drugs you are taking, check with your doctor, nurse or pharmacist. Copyright 1114-7443 [employer] Version: 8.01. Revision Date: 08/10/2016. furosemide (oral/injection) [...] blood pressure, such as diet pills or oayeg-kfj-oqiq medicine. What are the possible side effects [...] may report side effects to FDA at 0-960-OQE-5624. What other drugs will affect furosemide? Sometimes [...] drugs may affect furosemide, including prescription and xhhk-fqu-wifpjjo medicines, vitamins, and herbal products. Not all [...] to ensure that the information provided by [employer]') is accurate, up-to-date, and complete, but no guarantee is made to that effect. Drug information contained herein may be time sensitive. [employer] information has been compiled for use by healthcare practitioners and consumers in the [place] and therefore [employer] does not warrant that uses outside of the [place] are appropriate, unless specifically indicated otherwise. [employer] drug information does not endorse drugs, diagnose patients or recommend therapy. [employer] drug information isan informational resource designed to [...] effective or appropriate for any given patient. [employer] does not assume any responsibility for any aspect of healthcare administered with the aid of information [employer] provides. The information contained herein is not intended to cover all possible uses, directions, precautions, warnings, drug interactions, allergic reactions, or adverse effects. If you have questions about the drugs you are taking, check with your doctor, nurse or pharmacist. Copyright 2543-6032 [employer] Version: .. Revision Date: 11/07/2023. cetirizine (oral/injection) [...] may report side effects to FDA at 6-084-RTK-6113. What other drugs will affect cetirizine? Using cetirizine with other drugs that make you drowsy can worsen this effect. Ask your doctor before using opioid medication, a sleeping pill, a muscle relaxer, or medicine for anxiety or seizures. Other drugs may affect cetirizine, including prescription and engo-cig-yswpcel medicines, vitamins,and herbal products. Tell your doctor [...] to ensure that the information provided by [employer]') is accurate, up-to-date, and complete, but no guarantee is made to that effect. Drug information contained herein may be time sensitive. [employer] information has been compiled for use by healthcare practitioners and consumers in the [place] and therefore [employer] does not warrant that uses outside of the [place] are appropriate, unless specifically indicated otherwise. [employer] drug information does not endorse drugs, diagnose patients or recommend therapy. [employer] drug information isan informational resource designed to [...] effective or appropriate for any given patient. [facility] [employer] does not assume any responsibility for any aspect of healthcare administered with the aid of information [facility] provides. The information contained herein is not intended to cover all possible uses, directions, precautions, warnings, drug interactions, allergic reactions, or adverse effects. If you have questions about the drugs you are taking, check with your doctor, nurse or pharmacist. Copyright 3842-5974 [facility] Room [address]. Version: 13.. Revision Date: 11/16/2022. dofetilide (mathias [...] may report side effects to FDA at 4-391-HOB-1462. What other drugs will affect dofetilide? Other drugs may interact with dofetilide, including prescription and gafo-cgn-uhndyvi medicines, vitamins, and herbal products. Tell each [...] to ensure that the information provided by [employer]') is accurate, up-to-date, and complete, but no guarantee is made to that effect. Drug information contained herein may be time sensitive. [employer] information has been compiled for use by healthcare practitioners and consumers in the [place] and therefore [employer] does not warrant that uses outside of the [place] are appropriate, unless specifically indicated otherwise. [employer] drug information does not endorse drugs, diagnose patients or recommend therapy. [employer] drug information isan informational resource designed to [...] effective or appropriate for any given patient. [employer] does not assume any responsibility for any aspect of healthcare administered with the aid of information [employer] provides. The information contained herein is not intended to cover all possible uses, directions, precautions, warnings, drug interactions, allergic reactions, or adverse effects. If you have questions about the drugs you are taking, check with your doctor, nurse or pharmacist. Copyright 2351-6700 Prevent[employer]. Version: 4.01. Revision Date: 09/09/2015. allopurinol (oral/injection) [...] and call your (more content not included)... [facility] HospitalIwrajnyd30-09-6697 Pastoral care Progress note Pastoral Care Note Entered On: 10/04/2024 16:17 EDT Performed On: 10/04/2024 14:56 EDT by Sanjay Lucas [facility] Type of Pastoral Visit : Initial visit [...] by Sanjay Lucas on 10/04/2024 04:16 PM [facility] HospitalOtyajpnb42-17-2325 Discharge summary Date of Service 10/04/2024 Discharge [...] readmission score is 13 Follow Up with GIRMA CORREA When:Within 1-2 days Where:[address] [facility] [place] [address]- [phone] Business (1) Follow Up Appointments No qualifying data available. Follow Up Labs/Studies Discharge Labs No Follow-up Labs Discharge Studies No Follow-up Studies Discharge Diet No qualifying data available. Discharge Activity No qualifying data available. Readmission Risk/Palliative Score LACE Score: 13 (10/02/24 10:21:00) Palliative Total Score: 1 (10/02/24 10:21:00) Digitally Signed by DUSTIN RICHARD MD on 10/04/2024 12:27 PM [facility] HospitalFjoupqrc19-21-5621 Discharge summary Date of Service 10/04/2024 Discharge [...] readmission score is 13 Follow Up with GIRMA CORREA When:Within 1-2 days Where:[address] [facility] [place] [address]- [phone] Business (1) Follow Up Appointments No qualifying data available. Follow Up Labs/Studies Discharge Labs No Follow-up Labs Discharge Studies No Follow-up Studies Discharge Diet No qualifying data available. Discharge Activity No qualifying data available. Readmission Risk/Palliative Score LACE Score: 13 (10/02/24 10:21:00) Palliative Total Score: 1 (10/02/24 10:21:00) Digitally Signed by DUSTIN RICHARD MD on 10/04/2024 12:27 PM [facility] HospitalOkstpfqf04-46-2548 Cardiology Progress note Date of Service 10/03/2024 [...] DUSTIN RICHARD MD on 10/03/2024 01:50 PM [facility] HospitalKmtmywog11-18-3958 Note* Exam Date Time Procedure Performing Provider Status 10/03/24 10:08 PM Electrocardiogram - EKG - CV JOHNIE VELÁZQUEZ MD; Auth (Verified) ECG Final Report SINUS RHYTHM LEFT AXIS DEVIATION LOW VOLTAGE, PRECORDIAL LEADS Electronic Signature: JOHNIE VELÁZQUEZ MD 10/04/2024 21:58:08 [facility] HospitalFqrfjgpo35-92-4666 Note* Exam Date Time Procedure Performing Provider Status 10/03/24 4:01 PM Echocardiogram, Adult - CV ALIZA PAULINO MD; Auth (Verified) [facility] HospitalSdnoxpcn02-90-1794 Cardiology Progress note Date of Service 10/03/2024 [...] DUSTIN RICHARD MD on 10/03/2024 01:50 PM [facility] HospitalIezfiivt42-08-4225 Note* Exam Date Time Procedure Performing Provider Status 10/03/24 10:03 AM Electrocardiogram - EKG - CV JOHNIE VELÁZQUEZ MD; Auth (Verified) ECG Final Report SINUS RHYTHM LOW VOLTAGE, PRECORDIAL LEADS CONSIDER ANTERIOR INFARCT Electronic Signature: JOHNIE VELÁZQUEZ MD 10/04/2024 21:57:56 [facility] HospitalGorrlvno15-27-1875 Note* Exam Date Time Procedure Performing Provider Status 10/02/24 10:04 PM Electrocardiogram - EKG - CV JOHNIE VELÁZQUEZ MD; Auth (Verified) ECG Final Report SINUS RHYTHM LEFT ANTERIOR FASCICULAR BLOCK PROLONGED QT INTERVAL Electronic Signature: JOHNIE VELÁZQUEZ MD 10/03/2024 19:52:07 [facility] HospitalIzccsxzg72-11-9182 History and physical note Date of Service [...] Diabetes mellitus Patient is currently in in [facility] A-fib. Rate is relatively [...] DUSTIN RICHARD MD on 10/02/2024 03:28 PM [facility] HospitalOivxseuo67-83-7065 Note Date of Service October 02, 2024 Shared/Split visit with Dr. Forman Gen Card - Dr. Weber Reason for Consultation AF -> Tikosyn re-loading Referring Physician Gen Card History of Present Illness This is a [...] only), Blood, Once, Nurse Collect, Preferred Lab: [facility], Stop date 10/03/24 5:00:00 EDT Electrocardiogram(EKG), [...] by MARILUZ BUI on 10/02/2024 02:36 PM [facility] HospitalNjncjoxg82-16-9997 Note Date of Service October 02, 2024 [...] only), Blood, Once, Nurse Collect, Preferred Lab: [facility], Stop date 10/03/24 5:00:00 EDT Electrocardiogram(EKG), [...] 0 unknown unit (08/14/20) Digitally Signed by MARIULZ BUI on 10/02/2024 02:36 PM [facility] HospitalObrmklgt03-14-7398 Evaluation + Plan noteExtracted from: Title:History and Physical Author:DUSTIN RICHARD MD Date:10/02/24 Paroxysmal atrial fibrillati on Tachyarrhythmia induced cardiomyopathy Heart failure with improved EF (EF 30 to 35% in October 2022 to 55% in 2023) Moderate to severe LVH Mild pulmonary hypertension Severely dilated LA (LA 5.1 cm, DANIEL??) Obesity and KOFFI (intolerant to CPAP) Hypertension Diabetes mellitus Patient is currently in in [facility] A-fib. Rate is relatively [...] Future Appointments Appointment Date:10/23/2024 04:00:00 PM Scheduled Provider:GIRMA CORREA Location:[facility] Appointment Type:PC OV Appointment Date:11/08/2024 02:30:00 PM Scheduled Provider:EDY WEBER Location:[facility] Appointment Type:CV Hospital Follow Up Diagnostic Tests Pending * Urinalysis w/ C&S if Indicated 10/02/24 Future Scheduled Tests Laboratory* Basic Metabolic Panel 02/07/24 * Basic Metabolic Panel 12/10/24 * Basic Metabolic Panel 02/19/24 * Magnesium Level 02/07/24 * Complete Blood Count 08/27/24 * Complete Metabolic Panel 08/27/24 * N-Terminal proBNP 08/27/24 [facility] 05-07-2025 Note* Exam Date Time Procedure Performing Provider Status 10/02/24 1:53 PM Electrocardiogram - EKG - CV Brant VELÁZQUEZ MD; Auth (Verified) ECG Final Report SINUS RHYTHM PROBABLE LEFT ATRIAL ENLARGEMENT Left axis deviation Electronic Signature: JOHNIE VELÁZQUEZ MD 10/03/2024 19:51:33 [facility] HospitalYqijytrw79-16-5437 History and physical note Date of Service [...] Diabetes mellitus Patient is currently in in [facility] A-fib. Rate is relatively [...] DUSTIN RICHARD MD on 10/02/2024 03:28 PM [facility] HospitalUphgluhy62-22-9370 Respiratory therapy Hospital Progress note Respiratory Therapy [...] by CURTIS Patton on 10/02/2024 11:12 AM [facility] HospitalHyqhisaa52-86-6270 Note* Exam Date Time Procedure Performing Provider Status 10/02/24 8:23 AM Electrocardiogram - EKG - CV Brant VELÁZQUEZ MD; Auth (Verified) ECG Final Report ATRIAL FIBRILLATION LEFT ANTERIOR FASCICULAR BLOCK Electronic Signature: JOHNIE VELÁZQUEZ MD 10/03/2024 19:51:22 [facility] HospitalOrlxyfwx10-23-4881 Note* Exam Date Time Procedure Performing Provider Status 10/02/24 6:24 AM Electrocardiogram - EKG - CV Brant VELÁZQUEZ MD; Auth (Verified) ECG Final Report ATRIAL FIBRILLATION WITH RAPID VENTRICULAR RESPONSE Right axis deviation Electronic Signature: JOHNIE VELÁZQUEZ MD 10/03/2024 19:51:11 [facility] HospitalQmwzqmfb76-52-8426 Nurse Progress note bryon Nicole [phone] Digitally Signed by Halley Staples RN on 10/02/2024 04:26 AM [facility]05-07-2025 Nurse Progress note ready bed at main, transport called at 0230 ETA 90 min Digitally Signed by Halley Staples RN on 10/02/2024 04:22 AM [facility]05-07-2025 Nurse Progress note ready bed at main, transport called at 0230 ETA 90 min Digitally Signed by Halley Staples RN on 10/02/2024 04:22 AM [facility]05-07-2025 Note* Exam Date Time Procedure Performing Provider Status 10/02/24 1:43 AM XR Chest 1 View DARNELL MOLINA MD; [facility] (Verified) [id number] ORIGINAL EXAMINATION: ONE XRAY VIEW OF THE [...] 10/02/2024 2:02:33 AM Ordering Provider: DELORES MURO [facility]05-07-2025 Note* Exam Date Time Procedure Performing Provider Status 10/02/24 12:38 AM EKG [ED AOH] - CV DELORES MURO DO; [facility] (Verified) ECG Final Report Atrial fibrillation Inferior infarct, old Probable anteroseptal infarct, old Prolonged QT interval Baseline wander in lead(s) III,V1,V2,V5,V6 Compared to ECG at 08/13/2024 11:03:57 Electronic Signature: DELORES MURO DO 10/02/2024 02:28:42 [facility]10-30-2024 Note The microscopic examination is performed, except in the case of Gross Only. [facility] 10-29-2024 Note The microscopic examination is performed, except in the case of Gross Only. [facility] 10-29-2024 Note The microscopic examination is performed, except in the case of Gross Only. [facility] 10-29-2024 Note The microscopic examination is performed, except in the case of Gross Only. [facility] 10-29-2024 Note The microscopic examination is performed, except in the case of Gross Only. [facility] 10-29-2024 Note The microscopic examination is performed, except in the case of Gross Only. [facility] 10-29-2024 Note The microscopic examination is performed, except in the case of Gross Only. [facility] 09-11-2024 Evaluation + Plan note Future Scheduled Tests Laboratory* Basic Metabolic Panel 02/07/24 * Basic Metabolic Panel 12/10/24 * Basic Metabolic Panel 02/19/24 * Magnesium Level 02/07/24 * Complete Blood Count 08/27/24 * Complete Metabolic Panel 08/27/24 * N-Terminal proBNP 08/27/24 [facility] 09-09-2024 Note. MICRO - Microbiology PROCEDURE: [...] Locations *1: This test was performed at: [address], [facility] , [facility]09-09-2024 Note. MICRO - Microbiology PROCEDURE: Blood Culture [...] Locations *1: This test was performed at: [address], [address] [place], [place] [id number] Note. MICRO - Microbiology PROCEDURE: Blood Culture [...] Locations *1: This test was performed at: [address], [address] [place] [address] [id number] Note. MICRO - Microbiology PROCEDURE: Blood Culture [...] Locations *1: This test was performed at: [address], [address] [place] [address] [id number] Hospital Discharge instructions Patient Education 02/01/2024 17:18:13 Atrial Fibrillation, Xeda-od-Xnft Atrial Fibrillation Atrial fibrillation is a type [...] Follow these instructions at home: Medicines Take psge-eeo-cbgmcxc and prescription medicines only as told by [...] 02/21/2009 Document Revised: 07/19/2018 Document Reviewed: 07/06/2018 [employer] Patient Education 2020 [employer]. Follow Up Care 01/31/2024 00:20:11 With:GIRMA CORREA Address: [place] [address]- When:1-2 days Comments:Please call the office to schedule a hospital follow-up appointment. [facility] 09-05-2024 Note Discharge Instructions Thank you for allowing [facility] to assist you with your healthcare needs. The following is importantdischarge information regarding your hospital visit. Your Care Team GIRMA CORREA Your Diagnosis Shortness of breath What to do next Instructions From Your Doctor Resume taking all your usual medications Keep yourself hydrated Follow-up with your primary care physician and transitional nurse Scheduled Follow-Up Appointments Appointment Type When With Where Contact Information Status Wellness Annual w/Labs 02/13/2024 03:30 PM EDT GIRMA CORREA [facility] Confirmed Follow Up Appointments Follow Up with GIRMA CORREA When:Within 1-2 days Where:[address] [facility] [place] [address]- Additional Information: Please call the office to [...] Follow these instructions at home: Medicines Take llut-fln-khhiehw and prescription medicines only as told by [...] 02/21/2009 Document Revised: 07/19/2018 Document Reviewed: 07/06/2018 [employer] Patient Education 2020 [employer] Additional Information VACCINATE! IT SAVES LIVES! Members of the community who have not yet received the COVID-19 vaccine and would like to receive it can visit one of [facility] vaccine clinics. There are many vaccine clinic locations within the [facility]. For locations and available times, please visit https://gettheshot.coronavirus.[place].gov/. It is important to note that some COVID mobile vaccine clinics are held outdoors and may be canceled in rainy or stormy conditions. To learn more about pediatric vaccinations (ages 5-11), we invite you to visit the [facility] webpage. [email or web address].[email or web address]/pages/[email or web address]-[email or web address]-Tkbpj-[email or web address] stions.htmlTo learn more about the COVID-19 vaccine, we invite you to visit the CDC website for a list of frequently asked questions.https://www.cdc.gov/coronavirus/2019-ncov/vaccines/faq.html [facility] Patient Portal Access Instructions: Stay connected with your healthcare team and access your personal medical information anytime with the [facility] Patient Portal. Please follow the directions below to create your [employer] account: 1.Access the email account you provided upon registration to the hospital/physician office.2.Look for an invitation email from [facility].3.Open the email and access the invitation link: AcceptInvitation to [facility].4.Fill in the required orr to create your account. To access your account, visit [employer]. Click the blue button labeled Access Patient Portal and then log in with the username and password that you created in the steps above. You will be able to view your test results, lab results, a summary of your visits, upcoming appointments and more. There is also a convenient messaging option where you can send secure messages to your p Ziftitvider. In addition, you will have the ability to download any documents or summaries to your computer and/or send the information securely to a physician. Remember that your healthcare information is confidential, so carefully consider who you will allowto register on the [facility] Patient Portal for access to your information. You can also access the [facility] Patient Portal on the [facility] frida. Simply click on Patient Portal and then log into your account. If you would like to receive a full copy of your medical records, please contact the [facility] Medical Records Department by calling [phone], Monday through Monday between 8 a.m. and [...] Call your local pharmacy or go to [email or web address].Play for Job/[email or web address] to find one close to you.3.Make use of household items: Use cat litter or old coffee grounds to dispose medications if other options arenot available. Mix your drugs with these household products, seal them in an airtight container andthrow it into the garbage. Call [facility]: [phone] to be sure your drugs can be [...] COPY. Signatures Patient Education Materials Atrial Fibrillation, Woit-ne-Jshz Medication Leaflets My discharge plan and instructions have been reviewed and explained to me and IWARREN RAY J understand my current condition and have read and understand these discharge instructions. I have received awritten copy of the plan/instructions. If I have questions, I am aware that I should contact my doctor. 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 The patient presented to the [facility] on 01/[facility] as a transfer from [place] for A-fib with RVR. Apparently the patient [...] Follow-up with your primary care physician and transitional nurse Medications Unchanged acetaminophen (Tylenol)by mouth as needed [...] Refills: 3. Follow Up Follow Up with GIRMA CORREA When:Within 1-2 days Where:[address] [facility] [place] [address]- Additional Information: Please call the office to [...] BRENNON INGRAM MD on 02/01/2024 04:53 PM [facility] HospitalSlssiwbt78-54-4518 Cardiology Progress note HPI: 53-year-old morbidly obese [...] murmurs appreciated Abdomen benign Extremities good pulses [employer]ATOR grossly intact Skin warm to touch Laboratory [...] FREDDY HARTLEY MD on 02/01/2024 04:26 PM [facility] HospitalWkokhfkm38-12-3667 Anesthesiology Consult note Patient: CARLOS ALBERTO KELLEY Age: 53 years Sex: Male : [...] device, # 1 EA, 0 Refill(s), Pharmacy: [facility], 177.8, cm, 11/28/23 13:54:00 EDT, Height, 151.4, kg, 11/28/23 13:54:00 EDT, Dosin... Blood Glucose Test Strips: See Instructions, 1 bottle of 100 Test once daily, # 1 EA, 11 Refill(s), Pharmacy: [facility], 177.8, cm, 11/28/23 13:54:00 EDT, Height, 151.4, kg, 11/28/23 13:54:00 EDT, Dosing Weight FLUoxetine 20 mg oral capsule: Dose : 20 mg = 1 cap(s), Oral, qDay, # 30 cap(s), 3 Refill(s), Pharmacy: [facility], 177.8, cm, 11/28/23 13:54:00 EDT, Height, kg, 11/28/23 13:54:00 EDT,Dosing Weight Lancets: See Instructions, qs 1 month supply Test once daily, # 1 EA, 11 Refill(s), Pharmacy: [facility], 177.8, cm, 11/28/23 13:54:00 EDT, Height, 151.4, kg, 11/28/23 13:54:00 EDT, Dosing Weight Lasix 40 mg oral tablet: See Instructions, 1 tab in AM and 0.5 tab in PM, # 135 tab(s), 3 Refill(s), Pharmacy: [facility], 177.8, cm, 11/28/23 13:54:00 EDT, Height, kg, 11/28/23 13:54:00 EDT, Dosing Weight Symbicort 80 mcg-4.5 mcg/inh Inhaler: Dose = 2 puff(s), Inhalation, BID, # 10.2 gram(s), 3 Refill(s), Pharmacy: [facility], 177.8, cm, 11/28/23 13:54:00 EDT, Height, kg, 11/28/23 13:54:00 EDT, Dosing Weight Tikosyn 250 mcg oral capsule: Dose : 250 mcg = 1 cap(s), Oral, BID, # 180 cap(s), 3 Refill(s), Pharmacy: [facility]/pharmacy #[id number], 177.8, cm, 11/28/23 13:54:00 EDT, Height, kg, 11/28/23 13:54:00 EDT, Dosing Weight Toprol-XL 100 mg oral tablet, extended release: Dose : 100 mg = 1 tab(s), Oral, BID, do not crush or chew, # 180 tab(s), 3 Refill(s), Pharmacy: [facility], Shortness of breath, 177.8, cm, 11/28/23 13:54:00 EDT, Height, kg, 11/28/23 13:54:00 EDT, Dosing Weight Trulicity Pen 1.5 mg/0.5 mL subcutaneous solution: Dose : 1.5 mg =, Subcutaneous, qWeek, sent in absence of PCP, # 4 EA, 3 Refill(s), Pharmacy: [facility], 177.8, cm, 11/28/23 13:54:00EDT, Height, kg, 11/28/23 13:54:00 EDT, Dosing Weight Vistaril 25 mg oral capsule: Dose : 25 mg = 1 cap(s), Oral, QID, PRN as needed for anxiety, X 30 day(s), # 120 cap(s), 5 Refill(s), 06/09/24 16:10:00 EST, Pharmacy: [facility], 177.8, cm, 11/28/23 13:54:00 EDT, Height, kg, 11/28/23 13:54:00 EDT, Dosing Weight Xarelto 20 mg oral tablet: Dose : 20 mg = 1 tab(s), Oral, qHS, # 90 tab(s), 3 Refill(s), Pharmacy: [facility], 177.8, cm, 11/28/23 13:54:00 EDT, Height, 151.4, kg, 11/28/23 13:54:00 EDT, Dosing Weight allopurinol 100 mg oral tablet: Dose : 100 mg = 1 tab(s), Oral, qDay, # 90 tab(s), 3 Refill(s), Pharmacy: [facility], 177.8, cm, 11/28/23 13:54:00 EDT, Height, kg, 11/28/23 13:54:00 EDT, Dosing Weight cetirizine 10 mg oral tablet: Dose : 10 mg = 1 tab(s), Oral, Daily, # 90 tab(s), 3 Refill(s), Pharmacy: [facility], 177.8, cm, 11/28/23 13:54:00 EDT, Height, kg, 11/28/23 13:54:00 EDT,Dosing Weight nystatin 100,000 units/g topical cream: Apply 1 frida, Topical, BID, X 10 day(s), # 30 gram(s), 1 Refill(s), Pharmacy: [facility]/pharmacy #[id number], Cream, 177, cm, 01/12/24 9:42:00 EDT, Height, 148.6, kg, 01/12/24 9:42:00 EDT, Dosing Weight omeprazole 40 mg oral delayed release capsule: Dose : 40 mg = 1 cap(s), Oral, BID, before a meal., # 180 cap(s), 3 Refill(s), Pharmacy: [facility], 177.8, cm, 11/28/23 13:54:00 EDT, Height, kg, 11/28/23 13:54:00 EDT, Dosing Weight rosuvastatin 20 mg oral tablet: Dose : 20 mg = 1 tab(s), Oral, Daily, # 100 tab(s), 3 Refill(s), Pharmacy: [facility], 177.8, cm, 11/28/23 13:54:00 EDT, Height, kg, 11/28/23 13:54:00 EDT, Dosing Weight sacubitril-valsartan 49 mg-51 mg oral tablet: Dose = 1 tab(s), Oral, BID, # 180 tab(s), 3 Refill(s), Pharmacy: [facility], 177.8, cm, 11/28/23 13:54:00 EDT, Height, kg, 11/28/23 13:54:00 EDT, Dosing Weight spironolactone 25 mg oral tablet: Dose : 25 mg = 1 tab(s), Oral, qDay, # 90 tab(s), 3 Refill(s), Pharmacy: [facility], 177.8, cm, 11/28/23 13:54:00 EDT, Height, kg, 11/28/23 13:54:00 EDT, Dosing Weight tiZANidine 2 mg oral tablet: Dose : 2 mg = 1 tab(s), Oral, q8h, PRN as needed for muscle spasm, # 90 tab(s), 2 Refill(s), Pharmacy: [facility], 177.8, cm, 11/28/23 13:54:00 EDT, Height, kg, 11/28/23 13:54:00 EDT, Dosing Weight traZODone 100 mg oral tablet: Dose : 100 mg = 1 tab(s), Oral, qHS, # 90 tab(s), 3 Refill(s), Pharmacy: [facility], 177.8, cm, 11/28/23 13:54:00 EDT, [...] list: Medical Asthma exacerbation / SNOMED CT 9813381985 / Confirmed Anxiety / SNOMED CT 38168512 / Confirmed Atopic dermatitis / SNOMED CT 27355172 / Confirmed BMI 45.0-49.9, adult / SNOMED CT 1361622245 / Confirmed Cardiomyopathy / SNOMED CT 096584434 / Confirmed Diabetes mellitus / SNOMED CT 721375449 / Confirmed Generalized anxiety disorder / SNOMED CT 04741245 / Confirmed Hyperlipidemia / SNOMED CT 65596334 / Confirmed Hypertension / SNOMED CT 5427748233 / Confirmed Insomnia / SNOMED CT 729559831 / Confirmed Moderate asthma / SNOMED CT 2097353170 / Confirmed Morbid obesity / SNOMED CT 216614378 / Confirmed Chewing tobacco nicotine dependence / SNOMED CT 18450965 / Confirmed Obstructive sleep apnea / SNOMED CT 888590952 / Confirmed Right knee pain / SNOMED CT 0017338850 / Confirmed Paroxysmal atrial fibrillation / SNOMED CT 170297946 / Confirmed Screening for ischemic heart disease / SNOMED CT 549714016 / Confirmed Screening for colon cancer / SNOMED CT 844307827 / Confirmed Prediabetes / SNOMED CT 8784647408 / Confirmed Right flank pain / SNOMED CT 842965780 / Confirmed Type 2 diabetes mellitus with hemoglobin A1c goal of less than 7.0% / SNOMED CT 949417837 / Confirmed Wheezing / SNOMED CT 71553778 / Confirmed, Active Problems (26) Anxiety Asthma [...] Mother Grandparent Stroke Father Procedure history: Cardioversion ([id number]) on 12/23/2022 at 52 Years. Echocardiogram ([id number]) on 11/11/2022 at 52 Years. Comments: 03/20/2023 [...] atrial pressure is 15 mm Hg Elbow ([id number]). Comments: 07/11/2022 8:26 CRISTINO Sinha, SHAHEEN warner - right Social History: Social & Psychosocial [...] On and Limits Checked Nail Bed Color Ozone Capillary Refill < 2 seconds Heart Sounds [...] Elimination Voiding, no difficulties All Extremity Description Ozone Skin Temperature Warm Temperature All Extremities Warm Skin Description Ozone, Dry Skin Integrity Intact Skin Turgor Non-Elastic Mucous Membrane Color Ozone Mucous Membrane Description Moist Neurological Language Able to speak clearly Neurological Symptoms Patient denies Gait Unable to assess Extremity Movement Equal Swallowing Difficulty None Characteristics of Communication Appropriate Characteristics of Speech Clear Facial Symmetry Symmetric Level of Consciousness Alert Aspiration Risk None Eye Opening Response Luis Felipe Spontaneously Best Motor Response Luis Felipe Obeys simple commands Best Verbal Response Willamina Oriented Luis Felipe Coma Score 15 CLARA [...] On and Limits Checked Nail Bed Color Ozone Capillary Refill < 2 seconds Heart Sounds ICU S1S2 Heart Rhythm Irregular Cardiac Rhythm Sinus rhythm Monitoring Lead II, V5/MCL5 VA Interval 0.16 second(s) QRS Duration 0.08 second(s) [...] Elimination Voiding, no difficulties All Extremity Description Ozone Skin Temperature Warm Temperature All Extremities Warm Skin Description Ozone, Dry Skin Integrity Intact Skin Turgor Non-Elastic Mucous Membrane Color Ozone Mucous Membrane Description Moist Neurological Language Able to speak clearly Neurological Symptoms Patient denies Gait Unable to assess Extremity Movement Equal Swallowing Difficulty None Characteristics of Communication Appropriate Characteristics of Speech Clear Facial Symmetry Symmetric Level of Consciousness Alert Aspiration Risk None Eye Opening Response Willamina Spontaneously Best Motor Response Willamina Obeys simple commands Best Verbal Response Willamina Oriented Luis Felipe Coma Score 15 CLARA [...] date/time 01/31/2024 22:20 Provider Notified MILY MAURER [employer] Notification Method Pager Information Communicated Medication request [...] On and Limits Checked Nail Bed Color Ozone Capillary Refill < 2 seconds Heart Sounds [...] Movement Makes facial grimaces All Extremity Description Ozone Skin Temperature Warm Temperature All Extremities Warm Skin Description Ozone, Dry Skin Integrity Intact Skin Turgor Non-Elastic Mucous Membrane Color Ozone Mucous Membrane Description Moist Sensory Perception [place] [...] Not Done: Not Appropriate at this Time (AideDonmurray) Sequential Compression Device Not Done: Not Appropriate [...] On and Limits Checked Nail Bed Color Ozone Capillary Refill < 2 seconds Heart Sounds [...] intact Skin Turgor Non-Elastic Mucous Membrane Color Ozone Mucous Membrane Description Moist Neurological Language Able to speak clearly Neurological Symptoms Patient denies Extremity Movement Equal Swallowing Difficulty None Characteristics of Communication Appropriate Characteristics of Speech Clear Facial Symmetry Symmetric Level of Consciousness Alert Aspiration Risk None Eye Opening Response Willamina Spontaneously Best Motor Response Luis Felipe Obeys simple commands Best Verbal Response Willamina Oriented Willamina Coma Score 15 CLARA Yes Left Pupil [...] of Bed Elevated 30 01/31/2024 15:38 EDT [facility] Current Living Situation I have a steady place to live [facility] Current Issues Living Environment None [facility] Worried Food Running Out P12M Never true [facility] Food Gone, No Money To Buy P12M Never true [facility] No Transport Med/Appt/Work P12M No [facility] Utilities Threaten Shut Off P12M No C Anyone Physically Hurt You Never (1) [facility] Anyone Insult Or Talk Down To You Never (1) [facility] Anyone Threaten You With Harm Never (1) [facility] Anyone Scream Or Curse At You Never (1) [facility] Safety Total Score 4 Living Situation Lives with family Discharge To, Anticipated Home independently Anticipated Discharge Date 02/02/2024 Transition Planning Note Transition Planning Initial Assessment 01/31/2024 15:36 EDT Primary Care Phone Message Transition of Care sent from [facility] 01/31/2024 14:59 EDT heparin 9,000 unit(s) unit(s) Dextrose 5% Premix Diluent 90 mL mL 01/31/2024 14:43 EDT [place] Body Weight 72.7 kg Home Diet Regular Weight Chg, Unintentional Nutrition Hx Weight stable per lowry history Appetite Good Nutrition Plan of Care Dietitian follow up/monitor, Encourage PO feedings, Participate in team conference Nutrition Follow-Up Needed Yes Days until [employer] Tender Follow Up Seven days Adult Nutrition Initial Assessment/Plan Adult Nutrition Assessment/Plan 01/31/2024 14:22 EDT Transition of Care Note Transition of Care sent from [facility] 01/31/2024 14:00 EDT Hand Right 01/30/2024 [...] On and Limits Checked Nail Bed Color Ozone Capillary Refill < 2 seconds Heart Rhythm [...] Description Normal for ethnicity Mucous Membrane Color Ozone Mucous Membrane Description Moist Hand Right 01/30/2024 [...] On and Limits Checked Nail Bed Color Ozone Capillary Refill < 2 seconds Heart Rhythm [...] intact Skin Turgor Non-Elastic Mucous Membrane Color Ozone Mucous Membrane Description Moist Continuous IV Infusions [...] Alert Aspiration Risk None Eye Opening Response Willamina Spontaneously Best Motor Response Willamina Obeys simple commands Best Verbal Response Willamina Oriented Luis Felipe Coma Score 15 CLARA [...] On and Limits Checked Nail Bed Color Ozone Capillary Refill < 2 seconds Heart Rhythm Irregular Pretibial edema Bilateral Edema Ratin+ trace/2mm Cardiac Rhythm Atrial fibrillation Monitoring Lead II, V6/MCL6 Alarms On and Functional Yes Respirations Unlabored Respi (more content not included)... [id number] NoteSINUS RHYTHM IVCD MISSING LEAD(S): V1,V2,V3,V4,V5 Electronic Signature: MOY WATTS MD 02/01/2024 11:10:55[facility] 09-04-2024 Cardiology Consult note Date of [...] anxiety and gout who initially presented to [facility] on 01/30/2024 for shortness of breath [...] not tolerate Cardizem drip. Patient transferred to [facility] for further management. Placed on Levophed. [...] (s): 1.87 H Assessment/Plan A-fib with RVR ([id number] 2) Near syncopal episode Tachycardia mediated cardiomyopathy [...] Will continue to follow. Patient seen with transitional nurse Dr. Hartley who agreed with plan. Please [...] MICHELLE HENRY MD on 01/31/2024 12:53 PM [facility] [id number] Note* Exam Date Time Procedure Performing Provider Status 01/31/24 4:20 PM Echocardiogram, Adult - CV Auth (Verified) [facility] 09-04-2024 Note. MICRO - Microbiology PROCEDURE: [...] Locations *1: This test was performed at: [facility], [address] [place] [address], [address]- , [facility] ([place])01-31-2024 Note. MICRO - Microbiology PROCEDURE: Blood Culture [...] Locations *1: This test was performed at: [facility], [address] [place] [address], [id number]- , [facility] ([place])01-31-2024 Evaluation + Plan noteExtracted from: Title:History and [...] patient on heparin by weight considering elevated Zohaib Vascor Patient did have leukocytosis which I believe it was reactive. Complains of cough with greenish phlegm production. Was tested for COVID 2 weeks ago. I do believe starting for COVID treatment at this point would not benefit the patient. Patient prophylactically got a dose of ceftriaxone at [place]. We will continue with prophylactic ceftriaxone dose [...] by weight Full CODE STATUS. Addendum by ZOHAIB GAINES MD on January 31, 2024 11:16:33 [...] fibrillation with rapid ventricular rate at [facility] admitted to the ICU overnight [...] Future Appointments Appointment Date:02/13/2024 03:30:00 PM Scheduled Provider:GIRMA CORREA Location:[facility] Appointment Type:PC Wellness Annual w/Labs Diagnostic Tests Pending * Culture Respiratory with Gram Stain 01/31/24 * APTT 02/01/24 Future Scheduled Tests Laboratory* Basic Metabolic Panel 04/01/23 * Prostate Specific Antigen 02/07/24 * A1C Hemoglobin 02/07/24 * Lipid Profile 02/07/24 * Complete Metabolic Panel 02/07/24 [facility] 09-04-2024 History and physical note Date [...] evaluated On arrival to the ER at [place], patient was febrile 37.4, tachycardic 133, tachypneic 21, BP 90/76, was saturating 96% on room air. Labs done at [place] [facility] 01/30/2024 revealed pO2 51 on the gases [...] patient on heparin by weight considering elevated Zohaib Vascor Patient did have leukocytosis which I believe it was reactive. Complains of cough with greenish phlegm production. Was tested for COVID 2 weeks ago. I do believe starting for COVID treatment at this point would not benefit the patient. Patient prophylactically got a dose of ceftriaxone at [place].We will continue with prophylactic ceftriaxone dose as [...] CINDY HERNANDEZ MD on 01/31/2024 08:06 AM [facility] [id number] Cardiology Consult note Date of Service 01/31/2024 [...] anxiety and gout who initially presented to [facility] on 01/30/2024 for shortness of breath [...] not tolerate Cardizem drip. Patient transferred to [facility] for further management. Placed on Levophed. [...] (s): 1.87 H Assessment/Plan A-fib with RVR ([id number] 2) Near syncopal episode Tachycardia mediated cardiomyopathy [...] Will continue to follow. Patient seen with transitional nurse Dr. Hartley who agreed with plan. Please [...] MICHELLE HENRY MD on 01/31/2024 12:53 PM [facility] [id number] NoteATRIAL FIBRILLATION LAD, CONSIDER LEFT ANTERIOR FASCICULAR BLOCK LOW VOLTAGE, PRECORDIAL LEADS BORDERLINE T ABNORMALITIES, INFERIOR LEADS BORDERLINE PROLONGED QT INTERVAL Electronic Signature: MOY WATTS MD 02/01/2024 11:10:[address] [place] [address] 09-04-2024 Note. MICRO - Microbiology PROCEDURE: Blood [...] Locations *1: This test was performed at: [address], [address] [place], [place] [address]01-31-2024 Note. MICRO - Microbiology PROCEDURE: Blood Culture [...] Locations *1: This test was performed at: [address], [address] [place], [place] [address]-31-2024 History and physical note Date of Service [...] evaluated On arrival to the ER at [place] [facility], patient was febrile 37.4, tachycardic 133, tachypneic 21, BP 90/76, was saturating 96% on room air. Labs done at [place] [facility] 01/30/2024 revealed pO2 51 on the gases [...] patient on heparin by weight considering elevated Zohaib Vascor Patient did have leukocytosis which I believe it was reactive. Complains of cough with greenish phlegm production. Was tested for COVID 2 weeks ago. I do believe starting for COVID treatment at this point would not benefit the patient. Patient prophylactically got a dose of ceftriaxone at [place].We will continue with prophylactic ceftriaxone dose as [...] CINDY HERNANDEZ MD on 01/31/2024 08:06 AM [facility] [id number] Note ORIGINAL EXAMINATION: CT OF THE HEAD [...] Sign Date: 01/30/2024 10:16:46 PM Ordering Provider: SAMYBHARTI MENDEZHCA [facility]09-03-2024 Note ORIGINAL EXAMINATION: ONE XRAY VIEW OF [...] Date: 01/30/2024 9:28:12 PM Ordering Provider: SAMY [facility]09-03-2024 NoteAtrial flutter Left anterior fascicular block Borderline low voltage, extremity leads Abnormal R-wave progression, late transition Borderline ST depression, lateral leads Prolonged QT interval Baseline wander in lead(s) V3,V5 Electronic Signature: MD SAMY JONES MD 01/30/2024 21:01:46[facility] 03-13-2024 Hospital Discharge instructions Patient Education [...] get worse or if new symptoms appear. [phone] [employer]. [address] [place] [address]. All rights reserved. This information is not intended as a substitute for professional medical care. Always follow yourhealthcare professional's instructions. Follow Up Care 08/09/2023 21:02:01 With:GIRMA CORREA Address: [address] [place] [address]- [phone] Business (1) When:5-7 days Comments:Use warm compresses, Tylenol as discussed, return if any worsening or concerning symptoms. Follow-up closely with your doctor. [facility] 03-13-2024 Note Discharge Instructions Thank you for allowing [facility] to assist you with your healthcare needs. The following is importantdischarge information regarding your hospital visit. Diagnosis from Today's Visit Arm pain Arm pain-swelling What to Do Next Instructions from Your Care Team No qualifying data available. Post Acute Orders No qualifying data available. You Need to Schedule the Following Appointments Follow Up with GIRMA CORREA When Within 5-7 days Why: Use warm compresses, Tylenol as discussed, return if any worsening or concerning symptoms. Follow-up closely with your doctor. Where: [address] [place] [phone] Business (1) Allergies NKA Medications Please ask [...] get worse or if new symptoms appear. [phone] [employer]. [address] [place] [address], [place] [address]. All rights reserved. This information is not intended as a substitute for professional medical care. Always follow yourhealthcare professional's instructions. Additional Information VACCINATE! IT SAVES LIVES! Members of the community who have not yet received the COVID-19 vaccine and would like to receive it can visit one of [facility] vaccine clinics. There are many vaccine clinic locations within the [facility]. For locations and available times, please visit www.gettheshot.coronavirus.[place].gov/. It is important to note that some COVID mobile vaccine clinics are held outdoors and may be canceled in rainy or stormy conditions. To learn more about pediatric vaccinations (ages 5-11), we invite you to visit the [facility] webpage. https://www.[facility].org/pages/3493-Ackvp-Oxnwpqlpkei-Weshfwelnp-Emzwk-Uic stions.htmlTo learn more about the COVID-19 vaccine, we invite you to visit the CDC website for a list of frequently asked questions. https://www.cdc.gov/coronavirus/2019-ncov/vaccines/faq.html [facility] Patient Portal Access Instructions: Stay connected with your healthcare team and access your personal medical information anytime with the [facility] Patient Portal. If you would like a full copy of your medical records please contact the [facility] Medical Records Department Monday through Monday between 8a.m. and 4:30p.m. Please follow the directions below to access the portal: 1.Access the email account you provided upon registration to the [facility].2.Look for an invitation email from [facility].3.Open the email and access the invitation link: Accept Invitation to [facility]4.Fill in the required orr to create your account. Sign into [email or web address] with your username and password that [...] you will allow to register on the [facility] Portal for access to your information. You can also access the [facility] Patient Portal on the [employer] frida. Simply click on Health Records under [employer] and then click on the [employer] logo. HOW TO SAFELY DISPOSE OF PRESCRIPTION [...] Call your local pharmacy or go to http://Silversky.Play for Job/7Y5Zv1p to find one close to you.3.Make use of household items: Use cat litter or old coffee grounds to dispose medications if other options arenot available. Mix your drugs with these household products, seal them in an airtight container andthrow it into the garbage. Call [facility]: [phone] to be sure your drugs can be [...] been reviewed and explained to me and I,CARLOS ALBERTO KELLEY understand my current condition and have read and understand these discharge instructions. I have received awritten copy of the plan/instructions. If I have questions, I am aware that I should contact my doctor. 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 You may use kqla-puf-dokywjs medicine to control fever or pain, unless [...] loosen secretions in the nose and lungs. Pmkx-kml-htdwblx cough, cold, and sore-throat medicines will not [...] shortness of breath, or pain with breathing 8913-5517 [employer]. [address] [place] [address]. All rights reserved. This information is not intended as a substitute for professional medical care. Always follow yourhealthcare professional's instructions. Follow Up Care 06/13/2023 00:01:18 With:GIRMA CORREA Address: [address] [place] [address]- [phone] Business (1) When:3-7 days Comments:Schedule appointment for [...] portal.Return to the ED if symptoms worsen. [facility] 01-16-2024 Note Discharge Instructions Thank you for allowing [facility] to assist you with your healthcare needs. The following is importantdischarge information regarding your hospital visit. Diagnosis from Today's Visit Cough What to Do Next Instructions from Your Care Team No qualifying data available. Post Acute Orders No qualifying data available. You Need to Schedule the Following Appointments Follow Up with GIRMA CORREA When Within 3-7 days Why: Schedule [...] ED if symptoms worsen. Where: [place] [address]- [phone] Business (1) Allergies NKA Medications Please ask [...] exposed to secondhand smoke. You may use sngx-nlq-xcamitf medicine to control fever or pain, unless [...] loosen secretions in the nose and lungs. Ckzq-nfg-upxkfvu cough, cold, and sore-throat medicines will not [...] shortness of breath, or pain with breathing [phone] [employer]. [address] [place] [address]. All rights reserved. This information is not intended as a substitute for professional medical care. Always follow yourhealthcare professional's instructions. Additional Information VACCINATE! IT SAVES LIVES! Members of the community who have not yet received the COVID-19 vaccine and would like to receive it can visit one of [facility] vaccine clinics. There are many vaccine clinic locations within the [facility]. For locations and available times, please visit www.[email or web address].[place].gov/. It is important to note that some COVID mobile vaccine clinics are held outdoors and may be canceled in rainy or stormy conditions. To learn more about pediatric vaccinations (ages 5-11), we invite you to visit the [facility] webpage. https://www.[facility].org/pages/1070-Ojpyn-Bwelhwitgpf-Ekvdtzknco-Ehhai-Stt stions.htmlTo learn more about the COVID-19 vaccine, we invite you to visit the CDC website for a list of frequently asked questions. https://www.cdc.gov/coronavirus/2019-ncov/vaccines/faq.html [facility] Access Instructions: Stay connected with your healthcare team and access your personal medical information anytime with the [facility] Patient Portal. If you would like a full copy of your medical records please contact the [facility] Medical Records Department Monday through Monday between 8a.m. and 4:30p.m. Please follow the directions below to access the portal: 1.Access the email account you provided upon registration to the [facility].2.Look for an invitation email from [facility].3.Open the email and access the invitation link: Accept Invitation to [facility]4.Fill in the required orr to create your account. Sign into [email or web address] with your username and password that you [...] you will allow to register on the [facility] Patient Portal for access to your information. You can also access the [facility] Patient Portal on the [employer] frida. Simply click on Health Records under [employer] and then click on the Larry logo. [...] Call your local pharmacy or go to http://bit.Play for Job/3K6Hf5x to find one close to you.3.Make use of household items: Use cat litter or old coffee grounds to dispose medications if other options arenot available. Mix your drugs with these household products, seal them in an airtight container andthrow it into the garbage. Call [facility]: [phone] to be sure your drugs can be [...] aware that I should contact my doctor. 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 Signature: Date/Time: Relationship to Patient: Witness Name/Signature: Date/Time: [facility]01-16-2024 Note ORIGINAL EXAMINATION: ONE XRAY VIEW [...] Sign Date: 06/13/2023 12:39:50 AM Ordering Provider: [facility]01-12-2024 Hospital Discharge instructions Patient Education 06/09/2023 20:03:33 Atrial Fibrillation, Emut-xs-Assl Atrial Fibrillation Atrial fibrillation is a type [...] Follow these instructions at home: Medicines Take bite-ass-lynfmzo and prescription medicines only as told by [...] 02/21/2009 Document Revised: 07/19/2018 Document Reviewed: 07/06/2018 [employer] Patient Education 2020 [employer]. Follow Up Care 06/06/2023 16:24:50 With:GIRMA CORREA Address: [address] [place] [address]- [phone] When: Unknown Comments:PLEASE CALL THIS OFFICE TO SCHEDULE A HOSPITAL FOLLOW UP APPOINTMENT With:MOY WATTS MD Address: [address] [place] [address] [address] [place], [place] [address]- [phone] When:07/17/2023 15:15:00 Comments:THIS APPOINTMENT WILL BE WITH ZHOU ESPINOSA CNP [facility] 01-12-2024 Note Discharge Instructions Thank you for allowing [facility] to assist you with your healthcare needs. The following is importantdischarge information regarding your hospital visit. Your Care Team GIRMA CORREA Your Diagnosis Shortness of breath What to do next Scheduled Follow-Up Appointments Appointment Type When With Where Contact InformationPC OV 06/20/2023 02:30 PM EST GIRMA CORREA [facility] CV OV 07/17/2023 03:15 PM EST ZHOU ESPINOSA [facility] Follow Up Appointments Follow Up with MOY WATTS MD When 07/17/2023 03:15 PM EST Why: THIS APPOINTMENT WILL BE WITH ZHOU ESPINOSA CNP Where: [address] [place] [address] 5&6 [facility] [place] [address]- [phone] Follow Up with GIRMA CORREA When Why: PLEASE CALL THIS OFFICE TO SCHEDULE A HOSPITAL FOLLOW UP APPOINTMENT Where: [address] [facility] [place] [address]- [phone] The Following Activity and Diet Have Been [...] day Refills: 2 Pickup at [facility] #[id number] Changed FLUoxetine (FLUoxetine 10 mg oral capsule) 1 cap by mouth Once a day Pickup at [facility] #[id number] Unchanged allopurinol (allopurinol 100 mg oral tablet) [...] Daily at bedtime Pharmacy Information [facility] #[id number]: [address], [place] [id number] [phone] Please take this list to your next [...] may report side effects to FDA at 2-698-JBD-6207. What other drugs will affect dofetilide? Other drugs may interact with dofetilide, including prescription and nmrt-jvi-nudspvi medicines, vitamins, and herbal products. Tell each [...] to ensure that the information provided by [employer] ('[employer]') is accurate, up-to-date, and complete, but no guarantee is made to that effect. Drug information contained herein may be time sensitive. [employer] information has been compiled for use by healthcare practitioners and consumers in the [place] and therefore [employer] does not warrant that uses outside of the [place] are appropriate, unless specifically indicated otherwise. PostedIn drug information does not endorse drugs, diagnose patients or recommend therapy. [employer] drug information isan informational resource designed to [...] effective or appropriate for any given patient. [employer] does not assume any responsibility for any aspect of healthcare administered with the aid of information [employer] provides. The information contained herein is not intended to cover all possible uses, directions, precautions, warnings, drug interactions, allergic reactions, or adverse effects. If you have questions about the drugs you are taking, check with your doctor, nurse or pharmacist. Copyright 5155-2580 [employer]. Version: 4.01. Revision Date: 09/09/2015. Education Materials [...] Follow these instructions at home: Medicines Take vdfk-uao-fwycbja and prescription medicines only as told by [...] 02/21/2009 Document Revised: 07/19/2018 Document Reviewed: 07/06/2018 Validic Patient Education 2020 [employer]. Additional Information VACCINATE! IT SAVES LIVES! Members of the community who have not yet received the COVID-19 vaccine and would like to receive it can visit one of [facility] vaccine clinics. There are many vaccine clinic locations within the [facility]. For locations and available times, please visit https://[email or web address].[place].gov/. It is important to note that some COVID mobile vaccine clinics are held outdoors and may be canceled in rainy or stormy conditions. To learn more about pediatric vaccinations (ages 5-11), we invite you to visit the [facility] webpage. https://www.[facility].org/pages/3464-Rrgxf-Vusjzvprcfu-Phjjmidedr-Zmgtb-Ioy stions.htmlTo learn more about the COVID-19 vaccine, we invite you to visit the CDC website for a list of frequently asked questions.https://www.cdc.gov/coronavirus/2019-ncov/vaccines/faq.html [facility] Patient [facility] Access Instructions: Stay connected with your healthcare team and access your personal medical information anytime with the [facility] Patient Portal. Please follow the directions below to create your [facility] account: 1.Access the email account you provided upon registration to the hospital/physician office.2.Look for an invitation email from [facility].3.Open the email and access the invitation link: [facility]Invitation to [facility].4.Fill in the required orr to create your account. To access your account, visit [email or web address]. Click the blue button labeled Access Patient [...] who you will allowto register on the [facility] Patient Portal for access to your information. You can also access the [facility] Patient Portal on the [facility] frida. Simply click on Patient Portal and then log into your account. If you would like to receive a full copy of your medical records, please contact the [facility] Medical Records Department by calling [phone], Monday through Monday between 8 a.m. and [...] Call your local pharmacy or go to http://bit.ly/9Y2Sw0s to find one close to you.3.Make use of household items: Use cat litter or old coffee grounds to dispose medications if other options arenot available. Mix your drugs with these household products, seal them in an airtight container andthrow it into the garbage. Call [facility]: [phone] to be sure your drugs can be [...] COPY. Signatures Patient Education Materials Atrial Fibrillation, Kvfj-ym-Puyc Medication Leaflets Selina My discharge plan and instructions have been reviewed and explained to me and I,CARLOS ALBERTO KELLEY understand my current condition and have read and understand these discharge instructions. I have received awritten copy of the plan/instructions. If I have questions, I am aware that I should contact my doctor. 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 Signature: Date/Time: Relationship to Patient: Witness Name/Signature: Date/Time: [id number] Discharge summary Date of Service 06/09/23 Discharge Diagnosis Other persistent atrial fibrillation (I48.19 - ICD-10-CM) Encounter for therapeutic drug level monitoring (Z51.81 - ICD-10-CM) Morbid (severe) obesity due to excess calories (E66.01 - ICD-10-CM) Hypertensive heart disease without heart failure (I11.9 - ICD-10-CM) Gastro-esophageal reflux disease without esophagitis (K21.9 - ICD-10-CM) retirement (current) use of anticoagulants (Z79.01 - ICD-10-CM) Shortness of breath (R06.02 - ICD-10-CM) Additional Orders: Ordered: Communication Order (continuous),06/09/23 12:44:00 EST, ok to DC home after 5th dose of tikosyn this evening as long as QT is reviewed by credit professional fellow, Constant order Ordered: Discharge,06/09/23 12:44:00 EST, [...] qDay, # 30 cap(s), 2 Refill(s), Pharmacy: [facility] #[id number], 176, cm, 06/07/23 13:36:00 EST, Height, kg, 06/07/23 13:36:00 EST, Dosing Weight Ordered: Tikosyn 250 mcg oral capsule,Dose : 250 mcg = 1 cap(s), Oral, BID, # 60 cap(s), 2 Refill(s), Pharmacy: [facility] #[id number], 176, cm, 06/07/23 13:36:00 EST, Height, kg, [...] When 07/07/2023 01:00 PM EST Where: [address] [place], [place] [address]- [phone] Follow Up with GIRMA CORREA When Why: PLEASE CALL THIS OFFICE TO SCHEDULE A HOSPITAL FOLLOW UP APPOINTMENT Where: [address] [place], [place] [id number]- [phone] Follow Up Appointments No qualifying data available. Follow Up Labs/Studies Discharge Labs No Follow-up Labs Discharge Studies No Follow-up Studies Discharge Diet Discharge Diet - Ordered -- Type of Diet: Cardiac, Sodium limit: 2 gm, 06/09/23 12:44:00 EST Discharge Activity No qualifying data available. 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 (Z79.01 - ICD-10-CM) Shortness of breath (R06.02 - ICD-10-CM) Additional Orders: Ordered: Communication Order (continuous),06/09/23 12:44:00 EST, ok to DC home after 5th dose of tikosyn this evening as long as QT is reviewed by credit professional fellow, Constant order Ordered: Discharge,06/09/23 12:44:00 EST, [...] qDay, # 30 cap(s), 2 Refill(s), Pharmacy: [facility] #[id number], 176, cm, 06/07/23 13:36:00 EST, Height, kg, 06/07/23 13:36:00 EST, Dosing Weight Ordered: Tikosyn 250 mcg oral capsule,Dose : 250 mcg = 1 cap(s), Oral, BID, # 60 cap(s), 2 Refill(s), Pharmacy: [facility] #[id number], 176, cm, 06/07/23 13:36:00 EST, Height, kg, [...] (Oral) HR: 59(Monitored) RR: 20 BP: 126/64 SpO2:93% WT: 151.6 kg Weight Current Weight Dosing [...] When 07/07/2023 01:00 PM EST Where: [address] [facility] [address] [place] [address]- [phone] Follow Up with GIRMA CORREA APRN-[facility] When Why: PLEASE CALL THIS OFFICE TO SCHEDULE A HOSPITAL FOLLOW UP APPOINTMENT Where: [address] [place] [address]- [phone] Follow Up Appointments No qualifying data available. Follow Up Labs/Studies Discharge Labs No Follow-up Labs Discharge Studies No Follow-up Studies Discharge Diet Discharge Diet - Ordered -- Type of Diet: Cardiac, Sodium limit: 2 gm, 06/09/23 12:44:00 EST Discharge Activity No qualifying data available. Condition on Discharge stable Discharge Disposition home Digitally Signed by AMELIA RENAE MD on 06/09/2023 12:53 PM [facility] [id number] NoteSINUS RHYTHM LEFT AXIS DEVIATION LOW VOLTAGE, PRECORDIAL LEADS PROLONGED QT INTERVAL POOR R-WAVE PROGRESSION Electronic Signature: SADE STRAUSS MD 06/09/2023 09:53:23[facility] 01-11-2024 Cardiology Progress note Date of [...] AMELIA RENAE MD on 06/08/2023 03:03 PM [facility] [id number] Cardiology Progress note Date of Service 06/08/23 [...] AMELIA RENAE MD on 06/08/2023 03:03 PM [facility] HospitalCccyfgze51-30-0905 NoteSINUS RHYTHM LAD, CONSIDER LEFT ANTERIOR FASCICULAR BLOCK LOW VOLTAGE, PRECORDIAL LEADS BORDERLINE PROLONGED QT INTERVAL Poor R wave progression Electronic Signature: SADE STRAUSS MD 06/09/2023 09:53:37[facility] 01-10-2024 NoteSINUS RHYTHM BORDERLINE IVCD WITH LAD LOW VOLTAGE, PRECORDIAL LEADS CONSIDER ANTERIOR INFARCT Electronic Signature: SADE STRAUSS MD 06/08/2023 09:48:12[facility] 01-10-2024 History and physical note Date [...] 107 ms, QT interval approximately 450 ms. VA interval 184 ms. Renal function, electrolytes pending. [...] AMELIA RENAE MD on 06/07/2023 04:29 PM [facility] HospitalOghllird1971 NoteSINUS RHYTHM LAD, CONSIDER LEFT ANTERIOR FASCICULAR BLOCK LOW VOLTAGE, PRECORDIAL LEADS Electronic Signature: SADE STRAUSS MD 06/08/2023 09:47:[address] [place] [address] 01-10-2024 History and physical note Date of [...] 107 ms, QT interval approximately 450 ms. VA interval 184 ms. Renal function, electrolytes pending. [...] AMELIA RENAE MD on 06/07/2023 04:29 PM [facility] HospitalRtiqsvgc73-69-2901 Evaluation + Plan noteExtracted from: Title:History and [...] Future Appointments Appointment Date:06/20/2023 02:30:00 PM Scheduled Provider:GIRMA CORREA Location:[facility] Appointment Type:PC OV Appointment Date:07/17/2023 03:15:00 PM Scheduled Provider:ZHOU ESPINOSA [facility]oint[facility] Type:CV OV Future Scheduled Tests Laboratory* Basic Metabolic Panel 04/01/23 * A1C Hemoglobin 06/09/23 * Lipid Profile 06/09/23 * Complete Metabolic Panel 06/09/23 [facility] 01-10-2024 NoteSINUS RHYTHM MARKEDLY POSTERIOR QRS AXIS LOW VOLTAGE, PRECORDIAL LEADS BORDERLINE PROLONGED QT INTERVAL Electronic Signature: SADE STRAUSS MD 06/08/2023 09:47:38[facility] 12-08-2023 Hospital Discharge instructions Patient Education [...] in vomit, stools (black or red color) 8988-7791 [employer]. [address] [place] [address]82. All rights reserved. This information is not [...] fainting Blood in your stool or urine 3566-7065 [employer]. [address] [place], [place] [address]. All rights reserved. This information is not [...] will help ease pain. You may use wtzy-akv-tmjdfhg pain medicine such as acetaminophen or ibuprofen [...] suddenly or lasts more than an hour 1601-3492 [employer]. [address] [place] [address], [place] [address]. All rights reserved. This information is not intended as a substitute for professional medical care. Always follow yourhealthcare professional's instructions. Follow Up Care 05/05/2023 17:11:14 With:GIRMA CORREA Address: [place] [address] [phone] Business (1) When:5-7 days Comments:Follow-up as needed if symptoms or not improving.Limit activity as tolerated.Ice/cold compresses topainful areas.Use Tylenol, Advil or Aleve for pain as needed.Use Hesston as prescribed for severe pain as needed.Take 10 deep breaths on the incentive stridor every hour while awake for the next week as advised.Return to the ED if symptoms worsen. [facility] 12-08-2023 Note Discharge Instructions Thank you for allowing [facility] to assist you with your healthcare needs. The following is importantdischarge information regarding your hospital visit. Diagnosis from Today's Visit Contusion of rib on right side Fall Shortness of breath What to Do Next Instructions from Your Care Team No qualifying data available. Post Acute Orders No qualifying data available. You Need to Schedule the Following Appointments Follow Up with GIRMA CORREA When Within 5-7 days Why: Follow-up as needed if symptoms or not improving. Limit activity as tolerated. Ice/cold compresses to painful areas. Use Tylenol, Advil or Aleve for pain as needed. Use Hesston as prescribed for severe pain as needed. Take 10 deep breaths on the incentive stridor every hour while awake for the next week as advised. Return to the ED if symptoms worsen. Where: [place] [address] [phone] Business (1) Allergies NKA Medications Please ask your primary doctor or pharmacist before taking any other medication not listed, including over the counter drugs, herbal medications, vitamins and or supplements as they may interact withyour home medications. What How Much When Why Instructions Last Dose New acetaminophen-hydrocodone (Hesston 325- 5 mg oral tablet) 1 tab(s) [...] cancer screening As directed by provider at [facility]. Unchanged rivaroxaban (Xarelto 20 mg oral [...] SEET a MIN [place] and shelley molinamurray KOE done) Lortab Elixir, Verdrocet What is [...] may report side effects to FDA at 4-420-VAO-3493. What other drugs will affect acetaminophen and [...] affect acetaminophen and hydrocodone, including prescription and qlxc-axz-vlkcike medicines, vitamins, and herbal products. Not all [...] to ensure that the information provided by [employer]. ('[employer]') is accurate, up-to-date, and complete, but no guarantee is made to that effect. Drug information contained herein may be time sensitive. [employer] information has been compiled for use by healthcare practitioners and consumers in the [place] and therefore [employer] does not warrant that uses outside of the [place] are appropriate, unless specifically indicated otherwise. [employer] drug information does not endorse drugs, diagnose patients or recommend therapy. [employer] drug information isan informational resource designed to [...] effective or appropriate for any given patient. [employer] does not assume any responsibility for any aspect of healthcare administered with the aid of information [employer] provides. The information contained herein is not intended to cover all possible uses, directions, precautions, warnings, drug interactions, allergic reactions, or adverse effects. If you have questions about the drugs you are taking, check with your doctor, nurse or pharmacist. Copyright 3052-8206 [employer]. Version: 19.. Revision Date: 01/16/2023. Education Materials [...] in vomit, stools (black or red color) 5847-1328 [employer]. [address] [place] [address], [place] [address]. All rights reserved. This information is not [...] fainting Blood in your stool or urine 2712-3736 [employer]. [address] [place] [address], [place] [address]. All rights reserved. This information is not [...] will help ease pain. You may use buvs-qkw-ljqgmhv pain medicine such as acetaminophen or ibuprofen [...] suddenly or lasts more than an hour 9884-6937 [employer]. [address] [place] [address], [place] [address]. All rights reserved. This information is not intended as a substitute for professional medical care. Always follow yourhealthcare professional's instructions. Additional Information VACCINATE! IT SAVES LIVES! Members of the community who have not yet received the COVID-19 vaccine and would like to receive it can visit one of [facility] vaccine clinics. There are many vaccine clinic locations within the [facility]. For locations and available times, please visit www.gettheshot.coronavirus.[place].gov/. It is important to note that some COVID mobile vaccine clinics are held outdoors and may be canceled in rainy or stormy conditions. To learn more about pediatric vaccinations (ages 5-11), we invite you to visit the [facility] webpage. https://www.[facility].org/pages/0970-Ejmvp-Vreaorsqxor-Nmcqvgawii-Dpoxd-Xqo stions.htmlTo learn more about the COVID-19 vaccine, we invite you to visit the CDC website for a list of frequently asked questions. https://www.cdc.gov/coronavirus/2019-ncov/vaccines/faq.html [facility] Patient Portal Access Instructions: Stay connected with your healthcare team and access your personal medical information anytime with the [facility] Patient Portal. If you would like a full copy of your medical records please contact the [facility] Medical Records Department Monday through Monday between 8a.m. and 4:30p.m. Please follow the directions below to access the portal: 1.Access the email account you provided upon registration to the hospital.2.Look for an invitation email from [facility].3.Open the email and access the invitation link: Accept Invitation to [facility]4.Fill in the required orr to create your account. Sign into [email or web address] with your username and password that [...] you will allow to register on the [facility] Patient Portal for access to your information. You can also access the [facility] Patient Portal on the [employer] frida. Simply click on Health Records under [employer] and then click on the Larry logo. [...] Call your local pharmacy or go to http://Silversky.Play for Job/5Y0Fz1j to find one close to you.3.Make use of household items: Use cat litter or old coffee grounds to dispose medications if other options arenot available. Mix your drugs with these household products, seal them in an airtight container andthrow it into the garbage. Call [facility]: [phone] to be sure your drugs can be [...] aware that I should contact my doctor. 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 Signature: Date/Time: Relationship to Patient: Witness Name/Signature: Date/Time: [facility]12-08-2023 Note ORIGINAL EXAMINATION: 2 XRAY VIEWS OF THE RIGHT RIBS 05/05/2023 7:54 pm COMPARISON: None. HISTORY: ORDERING SYSTEM PROVIDED HISTORY: Reason for Exam: pain FINDINGS: No visible rib fracture. IMPRESSION: No visible rib fracture. Interpreted by: Trace Fierro Preliminary Report By: Trcae Fierro Electronically signed By Trace Fierro Dictated Date: 05/05/2023 9:07:05 PM Prelim Date: 05/05/2023 9:08:30 PM Sign Date: 05/05/2023 9:08:30 PM Ordering Provider: DEMI [facility]12-08-2023 Note ORIGINAL EXAMINATION: ONE XRAY [...] Date: 05/05/2023 9:17:04 PM [facility] * Exam Date Time Procedure Performing Provider Status 04/03/23 9:43 AM Echocardiogram, Adult (AOH) Auth (Verified) [facility] 07-28-2023 Hospital Discharge instructions Patient Education [...] Document Reviewed: 05/16/2014 ExitCare Patient Information 2015 [employer]. This information is not intended to replace [...] before eating solid foods. General instructions Take oqxi-hne-mqqvjzr and prescription medicines only as told by [...] 09/04/2016 Document Revised: 08/13/2018 Document Reviewed: 09/04/2016 Validic Patient Education 2020 [employer] Inc. 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 The following is importantdischarge information regarding your hospital visit. Your Care Team GIRMA CORREA Your Diagnosis AF (atrial fibrillation) What to do next Scheduled Follow-Up Appointments Appointment Type When With Where Contact InformationPC OV 02/07/2023 02:30 PM EDT GIRMA CORREA [facility] Follow Up Appointments Follow Up with ZHOU ESPINOSA When Why: Follow-up as scheduled Where: [address] [facility] [place] [address] [phone] Allergies NKA Medications Please ask your primary doctor or pharmacist before taking any other medication not listed, including over the counter drugs, herbal medications, vitamins and or supplements as they may interact withyour home medications. What How Much When Instructions Last Dose New losartan (losartan 100 mg oral tablet) 1 tab(s) by mouth Once a day Refills: 6 Pickup at [facility] #[id number] Changed metoprolol (Toprol-XL 50 mg oral tablet, extended release) 1 tab(s) by mouth Two (2) times a day Pickup at [facility] #[id number] Unchanged allopurinol (allopurinol 100 mg oral tablet) [...] Duration: 14 Days Pharmacy Information [facility] #[id number]: [address], [place] [id number] [phone] What How Much When Comments Stop Taking [...] Document Reviewed: 05/16/2014 ExitCare Patient Information 2015 [employer] [facility]. This information is not intended to replace [...] before eating solid foods. General instructions Take qzaz-xth-bzdolqe and prescription medicines only as told by [...] Document Reviewed: 09/04/2016 Elsevier Patient Education 2020 Validic Inc. Additional Information VACCINATE! IT SAVES LIVES! Members of the community who have not yet received the COVID-19 vaccine and would like to receive it can visit one of [facility] vaccine clinics. There are many vaccine clinic locations within the [facility]. For locations and available times, please visit https://gettheshot.coronavirus.[place].gov/. It is important to note that some COVID mobile vaccine clinics are held outdoors and may be canceled in rainy or stormy conditions. To learn more about pediatric vaccinations (ages 5-11), we invite you to visit the [employer] webpage. https://www.[facility].org/pages/0529-Kklvc-Xuapiwlkmry-Jqokqcpnzg-Exmmp-Vop stions.htmlTo learn more about the COVID-19 vaccine, we invite you to visit the CDC website for a list of frequently asked questions.https://www.cdc.gov/coronavirus/2019-ncov/vaccines/faq.html [facility] Patient [facility] Access Instructions: Stay connected with your healthcare team and access your personal medical information anytime with the [facility] Patient Portal. Please follow the directions below to create your [facility] account: 1.Access the email account you provided upon registration to the hospital/physician office.2.Look for an invitation email from [facility].3.Open the email and access the invitation link: AcceptInvitation to [facility].4.Fill in the required orr to create your account. To access your account, visit [email or web address]. Click the blue button labeled Access Patient [...] who you will allowto register on the [facility] for access to your information. You can also access the [facility] Patient [facility] on the [facility] frida. Simply click on Patient Portal and then log into your account. If you would like to receive a full copy of your medical records, please contact the [facility] Medical Records Department by calling [phone], Monday through Monday between 8 a.m. and [...] Call your local pharmacy or go to http://Ticketfly/0T7Ky9f to find one close to you.3.Make use of household items: Use cat litter or old coffee grounds to dispose medications if other options arenot available. Mix your drugs with these household products, seal them in an airtight container andthrow it into the garbage. Call [facility]: [phone] to be sure your drugs can be [...] aware that I should contact my doctor. 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 Signature: Date/Time: Relationship to Patient: Witness Name/Signature: Date/Time: [facility]07-28-2023 Anesthesiology Consult note Patient: CARLOS ALBERTO KELLEY Age: 52 years Sex: Male : 1970 Associated Diagnoses: None Author: BRAULIO WRIGHT APRN-[employer] FIELD COORDINATOR Assessment Postanesthesia assessment Vitals: Vital signs from [...] by BRAULIO WRIGHT on 12/23/2022 07:23 AM [facility]07-28-2023 Anesthesiology Consult note Patient: CARLOS ALBERTO KELLEY Age: 52 years Sex: Male : [...] Problem list: Medical Anxiety / SNOMED CT 13418426 / Confirmed Atopic dermatitis / SNOMED CT 85640129 / Confirmed BMI 45.0-49.9, adult / SNOMED CT 3836400999 / Confirmed Diabetes mellitus / SNOMED CT 030781853 / Confirmed Hypertension / SNOMED CT 0670910963 / Confirmed Insomnia / SNOMED CT 502668244 / Confirmed Morbid obesity / SNOMED CT 977254201 / Confirmed Chewing tobacco nicotine dependence / SNOMED CT 17122212 / Confirmed Obstructive sleep apnea / SNOMED CT 219809252 / Confirmed Screening for ischemic heart disease / SNOMED CT 880106824 / Confirmed Persistent atrial fibrillation / SNOMED CT 6951683514 / Confirmed Prediabetes / SNOMED CT [id number] / Confirmed, Active Problems (16) Anxiety Atopic [...] History: History is unknown. Procedure history: Elbow ([id number]). 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 Physical Examination Vital Signs 12/23/2022 6:34 EDT Temperature Temporal Artery 35.3 DegC Peripheral Pulse Rate 85 bpm Respiratory Rate 20 br/min Systolic Blood Pressure Non-Invasive 103 mmHg Diastolic Blood Pressure Non-Invasive 76 mmHg Vital Signs(last 24 hrs) Last Charted Resp Rate 20 br/min (DEC 23 06:34) UXQ504 mmHg (DEC 23 06:34) DBP76 mmHg (DEC 23 06:34) Measurements from flowsheet : Measurements 12/23/2022 6:37 EDT Height 175.3 cm Davilla Body Weight 70.74 kg 12/23/2022 6:34 EDT Height 175.3 cm Admission Weight 144 kg Davilla Body Weight 70.74 kg Admission Body Mass [...] Surgeon SN - CAt - Role Performed Custodian 1 SN - CAt - Role Performed [employer] FIELD COORDINATOR 12/23/2022 6:49 EDT Wrist Left 12/23/2022 20 [...] Person #1 We May Share YAW OSPINA [phone] Designated Person #1 Relationship Sibling Height 175.3 cm Davilla Body Weight 70.74 kg Status N/A Sensory [...] evident Teaching Method Explanation Preferred Spoken Language Cymro Preferred Written Language Cymro Information Given by Patient Patient's Current Physicians Patient's Current Physicians Discharge To, Anticipated Home independently Prev Test Positive/Diagnosis w/COVID-19 No Current Quarantine/Isolated any Illness No Any Contact with Sick Animals/Birds No Traveled Anywhere in Last 30 Days No N/A Personal Devices, Patient Valuables None Admission Note-Nursing Procedure/Therapy Intake 12/23/2022 6:34 EDT Height 175.3 cm Admission Weight 144 kg Davilla Body Weight 70.74 kg Admission Body Mass [...] Ordered (In Progress) . Assessment and Plan [place] [employer] Anesthesiologists (ASA) physical status classification: Class III. Anesthetic Preoperative Plan Anesthetic technique: MAC. Informed consent: signed by patient. Digitally Signed by BRAULIO WRIGHT on 12/23/2022 07:21 AM [facility]06-01-2023 Hospital Discharge instructions Patient Education 10/27/2022 06:39:29 [...] Swelling, pain or redness in one leg 3376-2392 [employer]. [address] [place] [address] 21161. All rights reserved. This information is not [...] very fast heart rate Loss of consciousness 5083-2671 [employer]. [address] [place] [address]01. All rights reserved. This information is not intended as a substitute for professional medical care. Always follow yourhealthcare professional's instructions. Follow Up Care 10/27/2022 05:02:35 With:GIRMA CORREA Address: [address] [facility] [place] [address] [phone] Business (1) When:2-4 days Comments:Follow close with your doctor, continue medications, return if any worsening or concerning symptoms. [facility] Note Discharge Instructions Thank you for [...] Schedule the Following Appointments Follow Up with GIRMA CORREA When Within 2-4 days Why: Follow close with your doctor, continue medications, return if any worsening or concerning symptoms. Where: [address] [facility] [place] [address] [phone] Business (1) Allergies NKA Medications Please ask [...] pain or redness in one leg [employer]. [address] [place] [address]. All rights reserved. This information is not [...] fast heart rate Loss of consciousness [employer]. [address] [place] [address]80. All rights reserved. This information is not intended as a substitute for professional medical care. Always follow yourhealthcare professional's instructions. Additional Information VACCINATE! IT SAVES LIVES! Members of the community who have not yet received the COVID-19 vaccine and would like to receive it can visit one of [facility] vaccine clinics. There are many vaccine clinic locations within the [facility]. For locations and available times, please visit www.gettheshot.coronavirus.[place].gov/. It is important to note that some COVID mobile vaccine clinics are held outdoors and may be canceled in rainy or stormy conditions. To learn more about pediatric vaccinations (ages 5-11), we invite you to visit the [facility] webpage. https://www.[facility].org/pages/2872-Gnpqn-Mwedcjlbcrw-Djevflbuuy-Eqbmv-Cyp stions.htmlTo learn more about the COVID-19 vaccine, we invite you to visit the CDC website for a list of frequently asked questions. https://www.cdc.gov/coronavirus/2019-ncov/vaccines/faq.html [facility] Patient Portal Access Instructions: Stay connected with your healthcare team and access your personal medical information anytime with the [facility] Patient Portal. If you would like a full copy of your medical records please contact the [facility] Medical Records Department Monday through Monday between 8a.m. and 4:30p.m. Please follow the directions below to access the portal: 1.Access the email account you provided upon registration to the hospital.2.Look for an invitation email from [facility].3.Open the email and access the invitation link: Accept Invitation to [facility]4.Fill in the required orr to create your account. Sign into [email or web address] with your username and password that [...] you will allow to register on the [facility] Patient Portal for access to your information. You can also access the [facility] Patient Portal on the [employer] frida. Simply click on Health Records under [employer] and then click on the Larry logo. [...] Call your local pharmacy or go to http://Silversky.Play for Job/3A7Za7r to find one close to you.3.Make use of household items: Use cat litter or old coffee grounds to dispose medications if other options arenot available. Mix your drugs with these household products, seal them in an airtight container andthrow it into the garbage. Call [facility]: [phone] to be sure your drugs can be [...] aware that I should contact my doctor. 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 Signature: Date/Time: Relationship to Patient: Witness Name/Signature: Date/Time: [facility]06-01-2023 Note ORIGINAL EXAMINATION: ONE XRAY VIEW [...] 10/27/2022 6:14:45 AM Ordering Provider: OLLIE BROOKE [facility]06-01-2023 Note ORIGINAL EXAMINATION: ONE XRAY VIEW [...] Sign Date: 10/27/2022 6:14:45 AM Ordering Provider: [facility]05-30[facility]2023 Hospital Discharge instructions Patient Education 10/25/2022 01:25:48 [...] your body to your neck and face. 1938-3249 [employer]. [address] [place] [address]. All rights reserved. This information is not intended as a substitute for professional medical care. Always follow [facility] professional's instructions. 10/25/2022 01:25:36 Atrial Fibrillation Atrial [...] vision Extreme drowsiness, confusion, dizziness, or fainting 7413-3773 [employer]. [address] [place] [address] 21132. All rights reserved. This information is not [...] Swelling, pain or redness in one leg 1500-3282 [employer]. [address] [place] [address]233. All rights reserved. This information is not [...] veins, fluid leaks out into the tissues. [place] then causes that fluid to move to [...] away Feeling much more tired than usual 9198-8206 [employer]. [address] [place] [address], [place] [address]. All rights reserved. This information is not intended as a substitute for professional medical care. Always follow yourhealthcare professional's instructions. Follow Up Care 10/24/2022 23:09:33 With:Call Physician Referral Address:Unknown When:2-4 days Comments:Call for referral to establish a primary care doctor you can see on a regular basis. With:SADE STRAUSS Address: [address] [place] [address]- [phone] Business (1) When:2-4 days Comments:Schedule an appointment to establish a transitional nurse you can see on a regular basis.Double your doseof Lasix from 20 mg once a day to 20 mg twice a day.Continue all other routine medications including the ones you were recently prescribed from [facility].Use potassium supplement and sleep aid (trazodone) as prescribed.Return to the ED if symptoms worsen. [facility] 05-30-2023 Note Discharge Instructions Thank you for allowing [facility] to assist you with your healthcare needs. [...] Why: Schedule an appointment to establish a transitional nurse you can see on a regular basis. Double your dose of Lasix from 20 mg once a day to 20 mg twice a day. Continue all other routine medications including the ones you were recently prescribed from [facility]. Use potassium supplement and sleep aid (trazodone) as prescribed. Return to the ED if symptoms worsen. Where: [address] [place] [address]- [phone] Business (1) Allergies NKA Medications Please ask [...] may report side effects to FDA at 1-345-RLP-8328. What other drugs will affect potassium chloride? Tell your doctor about all your other medicines, especially: medicine to prevent organ transplant rejection; a diuretic or 'water pill'; or heart or blood pressure medication. This list is not complete. Other drugs may affect potassium chloride, including prescription and latr-usu-nmvidep medicines, vitamins, and herbal products. Not all [...] to ensure that the information provided by [employer]. ('[employer]') is accurate, up-to-date, and complete, but no guarantee is made to that effect. Drug information contained herein may be time sensitive. [employer] information has been compiled for use by healthcare practitioners and consumers in the [place] and therefore [employer] does not warrant that uses outside of the [place] are appropriate, unless specifically indicated otherwise. [employer] drug information does not endorse drugs, diagnose patients or recommend therapy. [employer] drug information isan informational resource designed to [...] effective or appropriate for any given patient. [employer] does not assume any responsibility for any aspect of healthcare administered with the aid of information [employer] provides. The information contained herein is not intended to cover all possible uses, directions, precautions, warnings, drug interactions, allergic reactions, or adverse effects. If you have questions about the drugs you are taking, check with your doctor, nurse or pharmacist. Copyright 4148-7970 [employer]. Version: 14.. Revision Date: 10/24/2019. trazodone (TRAZ [...] may report side effects to FDA at 1-971-WUV-4483. What other drugs will affect trazodone? Using trazodone with other drugs that make you drowsy can worsen this effect. Ask your doctor before using opioid medication, a sleeping pill, a muscle relaxer, or medicine for anxiety or seizures. Tell your doctor about all your current medicines. Many drugs can affect trazodone, especially: any other antidepressants; phenytoin; [place]'s wort; tramadol; a diuretic or 'water pill'; medicine to treat anxiety, mood disorders, or mental illness such as schizophrenia; a blood thinner--warfarin, Coumadin, Jantoven; or migraine headache medicine--sumatriptan, Imitrex, Maxalt, Treximet, and others. This list is not complete and many other drugs may affect trazodone. This includes prescription gyaayjp-pdz-ymqqjra medicines, vitamins, and herbal products. Not all [...] to ensure that the information provided by [employer] ('[employer]') is accurate, up-to-date, and complete, but no guarantee is made to that effect. Drug information contained herein may be time sensitive. [employer] information has been compiled for use by healthcare practitioners and consumers in the [place] and therefore [employer] does not warrant that uses outside of the [place] are appropriate, unless specifically indicated otherwise. [employer]'s drug information does not endorse drugs, diagnose patients or recommend therapy. [employer]'s drug information isan informational resource designed to [...] effective or appropriate for any given patient. [facility] does not assume any responsibility for any aspect of healthcare administered with the aid of information [facility] provides. The information contained herein is not intended to cover all possible uses, directions, precautions, warnings, drug interactions, allergic reactions, or adverse effects. If you have questions about the drugs you are taking, check with your doctor, nurse or pharmacist. Copyright 8766-2488 [facility]. Version: 10.. Revision Date: 11/09/2020. Education Materials [...] your body to your neck and face. 9422-4408 [employer]. [address] [place] [address]. All rights reserved. This information is not [...] vision Extreme drowsiness, confusion, dizziness, or fainting 2400-0416 [employer]. [address] [place] [address], [place] [address]. All rights reserved. This information is not [...] Swelling, pain or redness in one leg 9488-4980 [employer]. [address] [place] [address]. All rights reserved. This information is not [...] veins, fluid leaks out into the tissues. [place] then causes that fluid to move to [...] away Feeling much more tired than usual 9031-2133 [employer]. [address] [place] [address]. All rights reserved. This information is not intended as a substitute for professional medical care. Always follow yourhealthcare professional's instructions. Additional Information VACCINATE! IT SAVES LIVES! Members of the community who have not yet received the COVID-19 vaccine and would like to receive it can visit one of [facility] vaccine clinics. There are many vaccine clinic locations within the [facility]. For locations and available times, please visit www.gettheshot.coronavirus.[place].gov/. It is important to note that some COVID mobile vaccine clinics are held outdoors and may be canceled in rainy or stormy conditions. To learn more about pediatric vaccinations (ages 5-11), we invite you to visit the [facility] webpage. https://www.[facility].org/pages/0415-Gqmqn-Fbviwihwktb-Dwoyextfnt-Nnnuk-Lnm stions.htmlTo learn more about the COVID-19 vaccine, we invite you to visit the CDC website for a list of frequently asked questions. https://www.cdc.gov/coronavirus/2019-ncov/vaccines/faq.html [facility] Patient Portal Access Instructions: Stay connected with your healthcare team and access your personal medical information anytime with the [facility] Patient Portal. If you would like a full copy of your medical records please contact the [facility] Medical Records Department Monday through Monday between 8a.m. and 4:30p.m. Please follow the directions below to access the portal: 1.Access the email account you provided upon registration to the [facility].2.Look for an invitation email from [facility].3.Open the email and access the invitation link: Accept Invitation to [facility]4.Fill in the required orr to create your account. Sign into [email or web address] with your username and password that [...] you will allow to register on the [facility] Patient Portal for access to your information. You can also access the [facility] Patient Portal on the Sellaround. Simply click on Health Records under [employer] and then click on the [employer] logo. HOW TO SAFELY DISPOSE OF PRESCRIPTION [...] Call your local pharmacy or go to http://bit.randal/1I7Ut9m to find one close to you.3.Make use of household items: Use cat litter or old coffee grounds to dispose medications if other options arenot available. Mix your drugs with these household products, seal them in an airtight container andthrow it into the garbage. Call [facility]: [phone] to be sure your drugs can be [...] been reviewed and explained to me and I,CARLOS ALBERTO KELLEY understand my current condition and have read and understand these discharge instructions. I have received awritten copy of the plan/instructions. If I have questions, I am aware that I should contact my doctor. 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 Signature: Date/Time: Relationship to Patient: Witness Name/Signature: Date/Time: [facility]05-30-2023 Note ORIGINAL EXAMINATION: CTA OF THE [...] aortic dissection. Lungs/pleura: Small bilateral pleural effusions pipelayer dependently. There is more fluid on the [...] Date: 10/25/2022 1:09:48 AM Ordering Provider: [facility] [id number] Note ORIGINAL EXAMINATION: CTA OF THE CHEST [...] aortic dissection. Lungs/pleura: Small bilateral pleural effusions pipelayer dependently. There is more fluid on the [...] Sign Date: 10/25/2022 1:09:48 AM Ordering Provider: [facility]05-29-2023 Note ORIGINAL EXAMINATION: ONE XRAY VIEW [...] Sign Date: 10/24/2022 11:56:09 PM Ordering Provider: [facility]05-29-2023 Note ORIGINAL EXAMINATION: ONE XRAY VIEW [...] Sign Date: 10/24/2022 11:56:09 PM Ordering Provider: [facility]05-28-[address] Clemens [facility] October 23, 2022 10:40am Note Date/Time October 23, 2022 6:48a m [facility] Medical Records Department [address] [place] [address] Emergency Department Summary 10/23/22 MR#: [id number] Acct: [id number] Name: CARLOS ALBERTO KELLEY Jr. Rep #:[id number] : 1970 52 From: Timothy Brown DO PCP: ZACARIAS COHN Status:REG ER [...] gets short of breath. Patient states his transitional nurse is a Dr. Barr out of [facility]. [facility] Medical History (Updated 10/23/22 @ 06:09 by [...] % (Auto) 67.9 Lymph % (Auto) 19.0 Pershing % (Auto) 9.6 Eos % (Auto) 2.4 [...] Triage Chief Complaint: Chest Pain ED Provider: Timothy Brown Dx/Rx/DC Orders Prescriptions: No Action hydrochlorothiazide [...] problems, contact your Primary Care Provider. Call [facility] ([phone]) or report to the closest Emergency Room. Call 911 if necessary. 10/23/22 07 <Electronically signed by Timothy Brown DO> Cosigner Signature (if applicable): CC: ZACARIAS COHN ~ Signed ADDENDUM by Dr. Jose A Clemens MD on 10/23/22 at 0759 Patient care was transferred to ar at 0710. Patient presented because of palpitations discomfort right side of his chest with shortness of breath. Patient does have history of congestive heart failure and atrial fibrillation. He has relocated from [place]. He does not have a local transitional nurse. Patient has not taken his Xarelto for [...] (if applicable): cc: ZACARIAS COHN ~* Signed [facility] Work Phone: [phone]) 863-413902-17-2023 Hospital Discharge instructions Patient Education 07/15/2022 21:17:24 [...] temperature. Use toothpaste made for sensitive teeth. [place] gently up and down instead of sideways. Brushing sideways can wear away root surfaces if they are exposed. If your tooth is chipped or cracked, or if there is a large open cavity, put oil of cloves directlyon the tooth to relieve pain. You can buy oil of cloves at [employer]. Some pharmacies carry an mmti-nkl-fxrtubk toothache kit. This contains a paste that you can put on the exposed tooth to make it less sensitive. Put a cold pack on your jaw over the sore area to help reduce pain. You may use wvig-jth-ylonqkd medicine to ease pain, unless your doctor [...] healthcare provider Pus drains from the tooth 6622-3103 [employer]. [address] [place] [address], [place] [address]. All rights reserved. This information is not intended as a substitute for professional medical care. Always follow yourhealthcare professional's instructions. Follow Up Care 07/15/2022 20:40:26 With:Dental Referral List Address: When:2-4 days [facility] 02-17-2023 Note Discharge Instructions Thank you for allowing [facility] to assist you with your healthcare needs. [...] When Why Instructions Last Dose New acetaminophen-hydrocodone ([place] 325- 5 mg oral tablet) 1 tab(s) [...] temperature. Use toothpaste made for sensitive teeth. [place] gently up and down instead of sideways. Brushing sideways can wear away root surfaces if they are exposed. If your tooth is chipped or cracked, or if there is a large open cavity, put oil of cloves directlyon the tooth to relieve pain. You can buy oil of cloves at drugstores. Some pharmacies carry an wkrw-ziy-wkolmgl toothache kit. This contains a paste that you can put on the exposed tooth to make it less sensitive. Put a cold pack on your jaw over the sore area to help reduce pain. You may use mbav-zne-ezskjqt medicine to ease pain, unless your doctor [...] healthcare provider Pus drains from the tooth 7316-9154 [employer]. [address] [place] [address]. All rights reserved. This information is not intended as a substitute for professional medical care. Always follow yourhealthcare professional's instructions. Additional Information VACCINATE! IT SAVES LIVES! Members of the community who have not yet received the COVID-19 vaccine and would like to receive it can visit one of [facility] vaccine clinics. There are many vaccine clinic locations within the [facility]. For locations and available times, please visit www.gettheshot.coronavirus.[place].gov/. It is important to note that some COVID mobile vaccine clinics are held outdoors and may be canceled in rainy or stormy conditions. To learn more about pediatric vaccinations (ages 5-11), we invite you to visit the [facility] webpage. https://www.[facility].org/pages/2494-Hlyys-Wvhddgbsusw-Klejgtlswp-Dmlmq-Obe stions.htmlTo learn more about the COVID-19 vaccine, we invite you to visit the CDC website for a list of frequently asked questions. https://www.cdc.gov/coronavirus/2019-ncov/vaccines/faq.html [facility] Patient Portal Access Instructions: Stay connected with your healthcare team and access your personal medical information anytime with the [facility] Patient Portal. If you would like a full copy of your medical records please contact the [facility] Medical Records Department Monday through Monday between 8a.m. and 4:30p.m. Please follow the directions below to access the portal: 1.Access the email account you provided upon registration to the [facility].2.Look for an invitation email from [facility].3.Open the email and access the invitation link: Accept Invitation to [facility]4.Fill in the required orr to create your account. Sign into [email or web address] with your username and password that [...] you will allow to register on the [facility] Patient Portal for access to your information. You can also access the [facility] Patient Portal on the [employer]. Simply click on Health Records under [employer] and then click on the [employer] logo. HOW TO SAFELY DISPOSE OF PRESCRIPTION [...] Call your local pharmacy or go to http://bit.Play for Job/9G8Ph5l to find one close to you.3.Make use of household items: Use cat litter or old coffee grounds to dispose medications if other options arenot available. Mix your drugs with these household products, seal them in an airtight container andthrow it into the garbage. Call [facility]: [phone] to be sure your drugs can be [...] aware that I should contact my doctor. 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 You may use cfqy-dot-hjaioyg pain medicine to control pain, unless another [...] hand becomes cold, blue, numb, or tingly [phone] [employer] [facility]. [address] [place] [address], [place] [address]. All rights reserved. This information is not intended as a substitute for professional medical care. Always follow yourhealthcare professional's instructions. Follow Up Care 07/11/2022 08:20:34 With:DO MELISSA COHN DO Address: [address] [place] [id number] When:3-7 days With:Go to emergency room if symptoms worsen Address:Unknown When:2-4 days [facility] 02-13-2023 Note Discharge Instructions Thank you for allowing [facility] to assist you with your healthcare needs. [...] COHN DO When Within 3-7 days Where: [address] [place] [address] [address] [place] [address] Follow Up with Go to [...] alternate ice and heat. You may use kydz-aaj-zydicfg pain medicine to control pain, unless another [...] hand becomes cold, blue, numb, or tingly [phone] [employer] [facility]. [address] [place] [address], [place] [address]. All rights reserved. This information is not intended as a substitute for professional medical care. Always follow yourhealthcare professional's instructions. Additional Information VACCINATE! IT SAVES LIVES! Members of the community who have not yet received the COVID-19 vaccine and would like to receive it can visit one of [facility] vaccine clinics. There are many vaccine clinic locations within the [facility]. For locations and available times, please visit [email or web address]. It is important to note that some COVID mobile vaccine clinics are held outdoors and may be canceled in rainy orstormy conditions. To learn more about pediatric vaccinations (ages 5-11), we invite you to visit the [facility] webpage. [email or web address]/[email or web address] stions.htmlTo learn more about the COVID-19 vaccine, we invite you to visit the [facility] website for a list of frequently asked questions. [email or web address]-[email or web address]/gihzh-Ljezjfr-Dfpgmpgkak _[email or web address]-Questions.pdf [facility] Patient Portal Access Instructions: Stay connected with your healthcare team and access your personal medical information anytime with the [facility] Patient Portal. If you would like a full copy of your medical records please contact the [facility] Medical Records Department Monday through Monday between 8a.m. and 4:30p.m. Please follow the directions below to access the portal: 1.Access the email account you provided upon registration to the [facility].2.Look for an invitation email from [facility].3.Open the email and access the invitation link: Accept Invitation to [facility]4.Fill in the required orr to create your account. Sign into [email or web address] with your username and password that [...] you will allow to register on the [facility] Patient Portal for access to your information. You can also access the [facility] Patient Portal on the Sellar[employer]. Simply click on Health Records under HealthData and then click on the [employer] logo. HOW TO SAFELY DISPOSE OF PRESCRIPTION [...] Call your local pharmacy or go to [email or web address] to find one close to you.3.Make use of household items: Use cat litter or old coffee grounds to dispose medications if other options arenot available. Mix your drugs with these household products, seal them in an airtight container andthrow it into the garbage. Call [facility]: [phone] to be sure your drugs can be [...] been reviewed and explained to me and I,CARLOS ALBERTO KELLEY understand my current condition and have read and understand these discharge instructions. I have received awritten copy of the plan/instructions. If I have questions, I am aware that I should contact my doctor. 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 Signature: Date/Time: Relationship to Patient: Witness Name/Signature: Date/Time: [facility]02-13-2023 Note ORIGINAL EXAMINATION: THREE XRAY VIEWS [...] 07/11/2022 8:51:46 AM Ordering Provider: MALORIE PEGUERO [place] [id number] Note ORIGINAL EXAMINATION: THREE XRAY VIEWS OF [...] Sign Date: 07/11/2022 8:51:46 AM Ordering Provider: [facility]09-12-[address] [place] [address] PERSONAL HISTORY AND PHYSICAL : [phone] Signed Name: CARLOS ALBERTO KELLEY JR Lucian MRUN: [id number] : 1970 Loc: ENDO Age / Sex: 51/ M Adm Status: PRE [facility] Adm Date:02/15/22 Room/Bed: A 51-year-old patient of [facility] in [place], who comes to discuss endoscopy. He has [...] Dictated Date/Time: 02/07/22 1659 Transcribed Date/Time: [facility]/07/[facility] CIRILO MCDONOUGH DO: PERFORM, SIGN, VERIFY Event Display: Anesthesiology Consultation Authored Date: [id number] Patient: CARLOS ALBERTO KELLEY Age: 53 years Sex: Male : [...] device, # 1 EA, 0 Refill(s), Pharmacy: [facility], 177.8, cm, 11/28/23 13:54:00 EDT, Height, 151.4, kg, 11/28/23 13:54:00 EDT, Dosin... Blood Glucose Test Strips: See Instructions, 1 bottle of 100 Test once daily, # 1 EA, 11 Refill(s), Pharmacy: [facility], 177.8, cm, 11/28/23 13:54:00 EDT, Height, 151.4, kg, 11/28/23 13:54:00 EDT, Dosing Weight FLUoxetine 20 mg oral capsule: Dose : 20 mg = 1 cap(s), Oral, qDay, # 30 cap(s), 3 Refill(s), Pharmacy: [facility], 177.8, cm, 11/28/23 13:54:00 EDT, Height, kg, 11/28/23 13:54:00 EDT,Dosing Weight Lancets: See Instructions, qs 1 month supply Test once daily, # 1 EA, 11 Refill(s), Pharmacy: [facility], 177.8, cm, 11/28/23 13:54:00 EDT, Height, 151.4, kg, 11/28/23 13:54:00 EDT, Dosing Weight Lasix 40 mg oral tablet: See Instructions, 1 tab in AM and 0.5 tab in PM, # 135 tab(s), 3 Refill(s), Pharmacy: [facility], 177.8, cm, 11/28/23 13:54:00 EDT, Height, kg, 11/28/23 13:54:00 EDT, Dosing Weight Symbicort 80 mcg-4.5 mcg/inh Inhaler: Dose = 2 puff(s), Inhalation, BID, # 10.2 gram(s), 3 Refill(s), Pharmacy: [facility], 177.8, cm, 11/28/23 13:54:00 EDT, Height, kg, 11/28/23 13:54:00 EDT, Dosing Weight Tikosyn 250 mcg oral capsule: Dose : 250 mcg = 1 cap(s), Oral, BID, # 180 cap(s), 3 Refill(s), Pharmacy: [facility]/pharmacy #[id number], 177.8, cm, 11/28/23 13:54:00 EDT, Height, kg, 11/28/23 13:54:00 EDT, Dosing Weight Toprol-XL 100 mg oral tablet, extended release: Dose : 100 mg = 1 tab(s), Oral, BID, do not crush or chew, # 180 tab(s), 3 Refill(s), Pharmacy: [facility], Shortness of breath, 177.8, cm, 11/28/23 13:54:00 EDT, Height, kg, 11/28/23 13:54:00 EDT, Dosing Weight Trulicity Pen 1.5 mg/0.5 mL subcutaneous solution: Dose : 1.5 mg =, Subcutaneous, qWeek, sent in absence of PCP, # 4 EA, 3 Refill(s), Pharmacy: [facility], 177.8, cm, 11/28/23 13:54:00EDT, Height, kg, 11/28/23 13:54:00 EDT, Dosing Weight Vistaril 25 mg oral capsule: Dose : 25 mg = 1 cap(s), Oral, QID, PRN as needed for anxiety, X 30 day(s), # 120 cap(s), 5 Refill(s), 06/09/24 16:10:00 EST, Pharmacy: [facility], 177.8, cm, 11/28/23 13:54:00 EDT, Height, kg, 11/28/23 13:54:00 EDT, Dosing Weight Xarelto 20 mg oral tablet: Dose : 20 mg = 1 tab(s), Oral, qHS, # 90 tab(s), 3 Refill(s), Pharmacy: [facility], 177.8, cm, 11/28/23 13:54:00 EDT, Height, 151.4, kg, 11/28/23 13:54:00 EDT, Dosing Weight allopurinol 100 mg oral tablet: Dose : 100 mg = 1 tab(s), Oral, qDay, # 90 tab(s), 3 Refill(s), Pharmacy: [facility], 177.8, cm, 11/28/23 13:54:00 EDT, Height, kg, 11/28/23 13:54:00 EDT, Dosing Weight cetirizine 10 mg oral tablet: Dose : 10 mg = 1 tab(s), Oral, Daily, # 90 tab(s), 3 Refill(s), Pharmacy: [facility], 177.8, cm, 11/28/23 13:54:00 EDT, Height, kg, 11/28/23 13:54:00 EDT,Dosing Weight nystatin 100,000 units/g topical cream: Apply 1 frida, Topical, BID, X 10 day(s), # 30 gram(s), 1 Refill(s), Pharmacy: [facility]/pharmacy #[id number], Cream, 177, cm, 01/12/24 9:42:00 EDT, Height, 148.6, kg, 01/12/24 9:42:00 EDT, Dosing Weight omeprazole 40 mg oral delayed release capsule: Dose : 40 mg = 1 cap(s), Oral, BID, before a meal., # 180 cap(s), 3 Refill(s), Pharmacy: [facility], 177.8, cm, 11/28/23 13:54:00 EDT, Height, kg, 11/28/23 13:54:00 EDT, Dosing Weight rosuvastatin 20 mg oral tablet: Dose : 20 mg = 1 tab(s), Oral, Daily, # 100 tab(s), 3 Refill(s), Pharmacy: [facility], 177.8, cm, 11/28/23 13:54:00 EDT, Height, kg, 11/28/23 13:54:00 EDT, Dosing Weight sacubitril-valsartan 49 mg-51 mg oral tablet: Dose = 1 tab(s), Oral, BID, # 180 tab(s), 3 Refill(s), Pharmacy: [facility], 177.8, cm, 11/28/23 13:54:00 EDT, Height, kg, 11/28/23 13:54:00 EDT, Dosing Weight spironolactone 25 mg oral tablet: Dose : 25 mg = 1 tab(s), Oral, qDay, # 90 tab(s), 3 Refill(s), Pharmacy: [facility], 177.8, cm, 11/28/23 13:54:00 EDT, Height, kg, 11/28/23 13:54:00 EDT, Dosing Weight tiZANidine 2 mg oral tablet: Dose : 2 mg = 1 tab(s), Oral, q8h, PRN as needed for muscle spasm, # 90 tab(s), 2 Refill(s), Pharmacy: [facility], 177.8, cm, 11/28/23 13:54:00 EDT, Height, kg, 11/28/23 13:54:00 EDT, Dosing Weight traZODone 100 mg oral tablet: Dose : 100 mg = 1 tab(s), Oral, qHS, # 90 tab(s), 3 Refill(s), Pharmacy: [facility], 177.8, cm, 11/28/23 13:54:00 EDT, [...] list: Medical Asthma exacerbation / SNOMED CT 4411594913 / Confirmed Anxiety / SNOMED CT 53435419 / Confirmed Atopic dermatitis / SNOMED CT 20450178 / Confirmed BMI 45.0-49.9, adult / SNOMED CT 0237066155 / Confirmed Cardiomyopathy / SNOMED CT 457057801 / Confirmed Diabetes mellitus / SNOMED CT 253929492 / Confirmed Generalized anxiety disorder / SNOMED CT 23515697 / Confirmed Hyperlipidemia / SNOMED CT 20727920 / Confirmed Hypertension / SNOMED CT 4030712913 / Confirmed Insomnia / SNOMED CT 891009922 / Confirmed Moderate asthma / SNOMED CT 5802914566 / Confirmed Morbid obesity / SNOMED CT 466429416 / Confirmed Chewing tobacco nicotine dependence / SNOMED CT 77433960 / Confirmed Obstructive sleep apnea / SNOMED CT 823935637 / Confirmed Right knee pain / SNOMED CT 4239514368 / Confirmed Paroxysmal atrial fibrillation / SNOMED CT 503356824 / Confirmed Screening for ischemic heart disease / SNOMED CT 315973986 / Confirmed Screening for colon cancer / SNOMED CT 667697170 / Confirmed Prediabetes / SNOMED CT 1190303430 / Confirmed Right flank pain / SNOMED CT 220396155 / Confirmed Type 2 diabetes mellitus with hemoglobin A1c goal of less than 7.0% / SNOMED CT 796348339 / Confirmed Wheezing / SNOMED CT 96620913 / Confirmed, Active Problems (26) Anxiety Asthma [...] Mother Grandparent Stroke Father Procedure history: Cardioversion ([id number]) on 12/23/2022 at 52 Years. Echocardiogram ([id number]) on 11/11/2022 at 52 Years. Comments: 03/20/2023 [...] right atrial pressure is 15 mm Hg [facility] ([id number]). Comments: 07/11/2022 8:26 CRISTINO Sinha, SHAHEEN warner - right Social History: Social & Psychosocial [...] On and Limits Checked Nail Bed Color Ozone Capillary Refill < 2 seconds Heart Sounds [...] Elimination Voiding, no difficulties All Extremity Description Ozone Skin Temperature Warm Temperature All Extremities Warm Skin Description Ozone, Dry Skin Integrity Intact Skin Turgor Non-Elastic Mucous Membrane Color Ozone Mucous Membrane Description Moist Neurological Language Able to speak clearly Neurological Symptoms Patient denies Gait Unable to assess Extremity Movement Equal Swallowing Difficulty None Characteristics of Communication Appropriate Characteristics of Speech Clear Facial Symmetry Symmetric Level of Consciousness Alert Aspiration Risk None Eye Opening Response Luis Felipe Spontaneously Best Motor Response Willamina Obeys simple commands Best Verbal Response Luis [...] On and Limits Checked Nail Bed Color Ozone Capillary Refill < 2 seconds Heart Sounds ICU S1S2 Heart Rhythm Irregular Cardiac Rhythm Sinus rhythm Monitoring Lead II, V5/MCL5 VA Interval 0.16 second(s) QRS Duration 0.08 second(s) [...] Elimination Voiding, no difficulties All Extremity Description Ozone Skin Temperature Warm Temperature All Extremities Warm Skin Description Ozone, Dry Skin Integrity Intact Skin Turgor Non-Elastic Mucous Membrane Color Ozone Mucous Membrane Description Moist Neurological Language Able [...] date/time 01/31/2024 22:20 Provider Notified MILY MAURER APRN-PARER Notification Method Pager Information Communicated Medication request [...] On and Limits Checked Nail Bed Color Ozone Capillary Refill < 2 seconds Heart Sounds [...] Movement Makes facial grimaces All Extremity Description Ozone Skin Temperature Warm Temperature All Extremities Warm Skin Description Ozone, Dry Skin Integrity Intact Skin Turgor Non-Elastic Mucous Membrane Color Ozone Mucous Membrane Description Moist Sensory Perception [place] [...] commands Best Verbal Response Luis Felipe Oriented [place] Coma Score 15 CLARA Yes Left Pupil [...] On and Limits Checked Nail Bed Color Ozone Capillary Refill < 2 seconds Heart Sounds [...] intact Skin Turgor Non-Elastic Mucous Membrane Color Ozone Mucous Membrane Description Moist Neurological Language Able to speak clearly Neurological Symptoms Patient denies Extremity Movement Equal Swallowing Difficulty None Characteristics of Communication Appropriate Characteristics of Speech Clear Facial Symmetry Symmetric Level of Consciousness Alert Aspiration Risk None Eye Opening Response [place] Spontaneously Best Motor Response Willamina Obeys simple commands Best Verbal Response [place] Oriented Luis Felipe Coma Score 15 CLARA [...] of Bed Elevated 30 01/31/2024 15:38 EDT [facility] Current Living Situation I have a steady place to live [facility] Current Issues Living Environment None [facility] Worried Food Running Out P12M Never true [facility] Food Gone, No Money To Buy P12M Never true [facility] No Transport Med/Appt/Work P12M No [facility] Utilities Threaten Shut Off P12M No [facility] Anyone Physically Hurt You Never (1) [facility] Anyone Insult Or Talk Down To You Never (1) [facility] Anyone Threaten You With Harm Never (1) [facility] Anyone Scream Or Curse At You Never (1) [facility] Safety Total Score 4 Living Situation Lives with family Discharge To, Anticipated Home independently Anticipated Discharge Date 02/02/2024 Transition Planning Note Transition Planning Initial Assessment 01/31/2024 15:36 EDT Primary Care Phone Message Transition of Care sent from [facility] 01/31/2024 14:59 EDT heparin 9,000 unit(s) unit(s) Dextrose 5% Premix Diluent 90 mL mL 01/31/2024 14:43 EDT [place] Body Weight 72.7 kg Home Diet Regular Weight Chg, Unintentional Nutrition Hx Weight stable per lowry history Appetite Good Nutrition Plan of Care Dietitian follow up/monitor, Encourage PO feedings, Participate in team conference Nutrition Follow-Up Needed Yes Days until Scooping Machine Tender Follow Up Seven days Adult Nutrition Initial Assessment/Plan Adult Nutrition Assessment/Plan 01/31/2024 14:22 EDT Transition of Care Note Transition of Care sent from [facility] 01/31/2024 14:00 EDT Hand Right 01/30/2024 [...] On and Limits Checked Nail Bed Color Ozone Capillary Refill < 2 seconds Heart Rhythm [...] Description Normal for ethnicity Mucous Membrane Color Ozone Mucous Membrane Description Moist Hand Right 01/30/2024 [...] On and Limits Checked Nail Bed Color Ozone Capillary Refill < 2 seconds Heart Rhythm [...] intact Skin Turgor Non-Elastic Mucous Membrane Color Ozone Mucous Membrane Description Moist Continuous IV Infusions [...] Alert Aspiration Risk None Eye Opening Response Willamina Spontaneously Best Motor Response Luis Felipe Obeys simple commands Best Verbal Response Luis Felipe Oriented [place] Coma Score 15 CLARA Yes Left Pupil [...] On and Limits Checked Nail Bed Color Ozone Capillary Refill < 2 seconds Heart Rhythm [...] Description Normal for ethnicity Mucous Membrane Color Ozone Mucous Membrane Description Moist Continuous IV Infusions [...] On and Limits Checked Nail Bed Color Ozone Capillary Refill < 2 seconds Heart Rhythm [...] intact Skin Turgor Non-Elastic Mucous Membrane Color Ozone Mucous Membrane Description Moist Continuous IV Infusions [...] commands Best Verbal Response Luis Felipe Oriented [place] Coma Score 15 CLARA Yes Left Pupil [...] On and Limits Checked Nail Bed Color Ozone Capillary Refill < 2 seconds Heart Rhythm [...] intact Skin Turgor Non-Elastic Mucous Membrane Color Ozone Mucous Membrane Description Moist Continuous IV Infusions [...] On and Limits Checked Nail Bed Color Ozone Capillary Refill < 2 seconds Heart Rhythm [...] intact Skin Turgor Non-Elastic Mucous Membrane Color Ozone Mucous Membrane Description Moist Hand Right 01/30/2024 [...] Alert Aspiration Risk None Eye Opening Response [place] Spontaneously Best Motor Response Luis Felipe Obeys [...] #1 We May Share PHI MARILYN OSPINA [phone] Designated Person #1 Relationship Sibling Designated Person #2 We May Share PHI Designated Person #2 We May Share PHI Designated Person #2 Relationship Significant other Privacy Restrictions Requested None Height 175 cm Height in inches 68.9 inch(es) Admission Weight 149.1 kg Weight Lbs 328 lb [place] Body Weight 70.46 kg BSA Admission 2.55 [...] evident Teaching Method Explanation Preferred Spoken Language Cymro Preferred Written Language Cymro Teaching Evaluation No further teaching needed Safety [...] On and Limits Checked Nail Bed Color Ozone Capillary Refill < 2 seconds Heart Sounds [...] intact Skin Turgor Non-Elastic Mucous Membrane Color Ozone Mucous Membrane Description Moist Sensory Perception [place] [...] Felipe Obeys simple commands Best Verbal Response Willamina Oriented Luis Felipe Coma Score 15 CLARA [...] explained to patient, Risks and benefits explained [facility] internet sales representative Transferring Physician MD SAMY JONES [...] Transfer Ground ambulance Required Personnel for Transfer [facility] Nursing [facility] MICU Discharged to Another [...] 250 mL mL . Assessment and Plan [place] [employer] Anesthesiologists (ASA) physical status classification: [...] CIRILO MCDONOUGH DO on 02/01/2024 06:26 AM [facility] Evaluation + Plan note No data available for this section [facility] Evaluation + Plan note Future Appointments Appointment Date:11/03/2022 09:15:00 AM Scheduled Provider:ZHOU ESPINOSA Location:[facility] Appointment Type:CV CLERICAL MANAGER Appointment Date:11/08/2022 02:00:00 PM Scheduled Provider:GIRMA CORREA Location:[facility] Appointment Type:PC CLERICAL MANAGER Unassigned ED Follow Up [facility] Evaluation + Plan note Future Appointments Appointment Date:11/04/2022 08:45:00 AM Scheduled Provider: Location:[facility] Appointment Type:CV CLERICAL MANAGER Appointment Date:11/08/2022 02:00:00 PM Scheduled Provider:GIRMA CORREA Location:[facility] Appointment Type:PC CLERICAL MANAGER Unassigned ED Follow Up [facility] Evaluation + Plan note Future Appointments Appointment Date:12/13/2022 03:00:00 PM Scheduled Provider:GIRMA CORREA Location:[facility] Appointment Type:PC OV Follow Up [facility] Evaluation + Plan note Future Appointments Appointment Date:02/07/2023 02:30:00 PM Scheduled Provider:GIRMA CORREA Location:[facility] Appointment Type:PC OV [facility] evaluation + Plan note Future Appointments Appointment Date:06/20/2023 02:30:00 PM Scheduled Provider:GIRMA CORREA Location:[facility] Appointment Type:PC OV Future Scheduled Tests Laboratory* Basic Metabolic Panel 04/01/23 * A1C Hemoglobin 06/09/23 * Lipid Profile 06/09/23 * Complete Metabolic Panel 06/09/23 [facility] evaluation + Plan note Future Appointments Appointment Date:08/22/2023 12:00:00 PM Scheduled Provider: Location:[facility] Appointment Type:PF PFT w/Bronchodiltor Appointment Date:11/07/2023 02:00:00 PM Scheduled Provider:GIRMA CORREA Location:[facility] Appointment Type:PC OV Future Scheduled Tests Laboratory* Basic Metabolic Panel 04/01/23 [facility] Evaluation + Plan note Future Appointments Appointment Date:11/07/2023 02:00:00 PM Scheduled Provider:GIRMA CORREA Location:[facility] Appointment Type:PC OV Future Scheduled Tests Laboratory* Basic Metabolic Panel 04/01/23 [facility] Evaluation + Plan note Future Appointments Appointment Date:06/20/2023 10:00:00 AM Scheduled Provider:GIRMA CORREA Location:[facility] Appointment Type:PC OV Hospital Follow-Up Appointment Date:06/20/2023 02:30:00 PM Scheduled Provider:GIRMA CORREA Location:[facility] Appointment Type:PC OV Appointment Date:07/17/2023 03:15:00 PM Scheduled Provider:ZHOU ESPINOSA Location:[facility] Appointment Type:CV OV Future Scheduled Tests Laboratory* Basic Metabolic Panel 04/01/23 * A1C Hemoglobin 06/09/23 * Lipid Profile 06/09/23 * Complete Metabolic Panel 06/09/23 [facility] Evaluation + Plan note Future Appointments Appointment Date:02/13/2024 03:30:00 PM Scheduled Provider:GIRMA CORREA Location:[facility] Appointment Type:PC Wellness Annual w/Labs Future Scheduled Tests Laboratory* Basic Metabolic Panel 04/01/23 * Prostate Specific Antigen 02/07/24 * A1C Hemoglobin 02/07/24 * Lipid Profile 02/07/24 * Complete Metabolic Panel 02/07/24 [facility] Evaluation + Plan note Future Appointments Appointment Date:03/26/2024 08:00:00 PM Scheduled Provider: Location:[facility] Appointment Type: Sameer Study Appointment Date:05/14/2024 03:00:00 PM Scheduled Provider:GIRMA CORREA Location:[facility] Appointment Type:PC OV Lab Check Future Scheduled Tests Laboratory* Basic Metabolic Panel 02/07/24 * Basic Metabolic Panel 02/19/24 * Basic Metabolic Panel 04/01/23 * Magnesium Level 02/07/24 * A1C Hemoglobin 05/14/24 * Lipid Profile 05/14/24 * Complete Metabolic Panel 05/14/24 [facility] Evaluation + Plan note Future Appointments Appointment Date:04/01/2024 01:00:00 PM Scheduled Provider:DAMIAN SHRESTHA MD Location:[facility] Appointment Type:GS OV Appointment Date:05/14/2024 03:00:00 PM Scheduled Provider:GIRMA CORREA Location:[facility] Appointment Type:PC OV Lab Check Future Scheduled Tests Laboratory* Basic Metabolic Panel 02/07/24 * Basic Metabolic Panel 02/19/24 * Basic Metabolic Panel 04/01/23 * Magnesium Level 02/07/24 * A1C Hemoglobin 05/14/24 * Lipid Profile 05/14/24 * Complete Metabolic Panel 05/14/24 [facility] Evaluation + Plan note Future Appointments Appointment Date:02/13/2024 03:30:00 PM Scheduled Provider:GIRMA CORREA Location:[facility] Appointment Type: Wellness Annual w/Labs Future Scheduled Tests Laboratory* Basic Metabolic Panel 02/07/24 * Basic Metabolic Panel 02/19/24 * Basic Metabolic Panel 04/01/23 * Magnesium Level 02/07/24 [facility] Evaluation + Plan note Future Appointments Appointment Date:08/12/2024 03:00:00 PM Scheduled Provider:GIRMA CORREA Location:[facility] Appointment Type: Wellness Annual Future Scheduled Tests Laboratory* Basic Metabolic Panel 02/07/24 * Basic Metabolic Panel 02/19/24 * Magnesium Level 02/07/24 [facility] Evaluation + Plan note Future Appointments Appointment Date:10/23/2024 04:00:00 PM Scheduled Provider:GIRMA CORREA Location:[facility] Appointment Type:PC OV Appointment Date:11/08/2024 02:30:00 PM Scheduled Provider:EDY WEBER Location:[facility] Appointment Type: OV Hospital Follow Up Future Scheduled Tests Laboratory* Basic Metabolic Panel 02/07/24 * Basic Metabolic Panel 12/10/24 * Basic Metabolic Panel 02/19/24 * Magnesium Level 02/07/24 * Complete Blood Count 08/27/24 * Complete Metabolic Panel 08/27/24 * N-Terminal proBNP 08/27/24 [facility] Evaluation noteNo assessment information available [facility] Work Phone: Hospital Discharge instructions Additional Instructions Call Dr. Etienne's office on Monday to be seen later this coming week.[facility] Work Phone: Hospital Discharge instructions No data available for this section [facility] Hospital Discharge instructions Additional Instructions Chest x-ray negative. COVID and flu negative. Vapor rubs, humidifier. May use loratadine D that you have at home daily. Cough suppressants as needed. Follow-up with your doctor. Return if any worsening symptoms.[facility] Work Phone: Hospital Discharge instructionsAdditional Instructions Your cardiac workup negative in the ED. Your CT angiogram chest negative for blood clots or any acute findings., Your oxygen dropped down while in the emergency department. Your facility continue oxygen as needed. You have sleep apnea history.[facility] Work Phone: Progress note No data available for this section [facility] Reason for referral (narrative)No reason for referral information availableW[facility] Work Phone: Summary note* MACIEJ Rasmussen: PERFORM Event Display: Patient Summary Documents Authored Date: [id number] [facility] Summary Purpose Family History No Family [...] FoundNo Family History Records Found Advance Directives Advance Directive Response Recorded Date/ Time Living Will No October 23, 2022 6 :09am Power of Horseback Excavator No October 23, 2022 6:09am Advance Directive Response Recorded Date/ Time Living Will No February 12, 2023 7:08am Power of Horseback Excavator No January 7:08am Advance Directive Response Recorded Date/ Time Do you have a Healthcare Power of Horseback Excavator? No December 19, 2024 10:20pm Chief Complaint and Reason for Visit Chief Complaint CHEST PAIN Chief Complaint CHEST PAIN cough Chief Complaint Admit Date LONG TERM LAB WORK October 24, 2024 6:2 0am LAB WORK October 28, 2024 4:00a m LAB WORK October 30, 2024 5:55a m LAB WORK November 04, 2024 5:00a m LAB WORK November 06, 2024 4:00 am CHEST PAIN December 19, 2024 10:1 8pm Additional Source Comments (unrecognized sect ion and content) No Status Records FoundNo Status Records FoundNo Status Records FoundNo Status Records FoundNo Status Records FoundNo Status Records FoundNo Status Records FoundNo Status Records FoundNo Status Records FoundNo Status Records FoundNo Status Records Found INFORMATION SOURCE (unrecogn ized section and content) DATE CREATED AUTHOR 02/15/2021 [facility] DATE CREATED AUTHOR AUTHOR'S ORGANIZ ATION 08/25/2021 [facility] DATE CREATED AUTHOR AUTHOR'S ORGANIZ ATION 2021 [employer] DATE CREATED AUTHOR AUTHOR'S ORGANIZ ATION 06/07/2022 [facility] DATE CREATED AUTHOR AUTHOR'S ORGANIZ ATION 08/17/2022 [facility] DATE CREATED AUTHOR AUTHOR'S ORGANIZ ATION 10/13/2023 [facility] DATE CREATED AUTHOR AUTHOR'S ORGANIZ ATION 02/02/2024 [facility] ([place] DATE CREATED AUTHOR AUTHOR'S ORGANIZ ATION 10/23/2024 [facility] DATE CREATED AUTHOR AUTHOR'S ORGANIZ ATION 12/07/2024 [facility] DATE CREATED AUTHOR AUTHOR'S ORGANIZ ATION 12/19/2024 [facility] DATE CREATED AUTHOR AUTHOR'S ORGANIZ ATION 12/20/2024 [facility] Care Team (unrecognized sect ion and content) Care Team Personnel Name: PHYSICIAN, NONE Position: Physician Member Role: Primary Care Physician Name: MALORIE PEGUERO MD Position: ED Physician Member Role: ED Physician Address: Address: [facility] [address] [place] [address]- [place] Name: SHAHEEN Sinha Position: AO RN Member Role: ED RN Care Team Related Persons Name: MAST, MARILYN Care Team Personnel Name: PHYSICIAN, NONE Position: Physician Member Role: Primary Care Physician Name: JEREMIE MCCORMACK MD Position: ED Physician Member Role: ED Physician Address: Address: [facility] [address] [place] [address]- [place] Name: Halley Staples RN Position: AO [...] Status: Inactive Member Role Status Dates Dr. Timothy Brown DO Emergency Provider Active ROMAIN ADAMES Primary Care Provider Active Team Status: Active Member Role Status Dates Dr. Ollie Bright MD Family Provider Active Girma Correa CLERICAL MANAGER, CLERICAL MANAGER-C Primary Care Provider Active Team Status: Inactive Member Role Status Dates Dr. Timothy Brown DO Attending Provider, Emergency Provider Active ROMAIN ADAMES Primary Care Provider Active Team Status: Inactive Member Role Status Dates Dr. Nguyễn Al DO Emergency Provider Active Girma Correa CLERICAL MANAGER, CLERICAL MANAGER-C Primary Care Provider Active Team Status: Active Member Role/Relationship Status Dates Dr. Jhonatan Garcia DO Primary Care Provider Active Team Status: Active Member Role/Relationship Status Dates Girma Correa CLERICAL MANAGER, CLERICAL MANAGER-C Primary Care Provider Active Start: October 24, 2024 Dr. Dolly HOLCOMB MD Attending Provider Active Start: October 24, 2024 Team Status: Active Member Role/Relationship Status Dates Girma Correa NP, CLERICAL MANAGER-C Primary Care Provider Active Start: October 28, 2024 Dr. Dolly HOLCOMB MD Attending Provider Active Start: October 28, 2024 Dr. Dolly HOLCOMB MD Referring Provider Active Start: October 28, 2024 Team Status: Active Member Role/Relationship Status Dates Girma Correa NP, CLERICAL MANAGER-C Primary Care Provider Active Start: October 30, 2024 Dr. Dolly HOLCOMB MD Attending Provider Active Start: October 30, 2024 Team Status: Active Member Role/Relationship Status Dates Girma Correa NP, CLERICAL MANAGER-C Primary Care Provider Active Start: November 04, 2024 Dr. Dolly HOLCOMB MD Attending Provider Active Start: November 04, 2024 Team Status: Active Member Role/Relationship Status Dates Girma Correa NP, CLERICAL MANAGER-C Primary Care Provider Active Start: November 06, 2024 Dr. Dolly HOLCOMB MD Attending Provider Active Start: November 06, 2024 Dr. Dolly HOLCOMB MD Referring Provider Active Start: November 06, 2024 Team Status: Inactive Member Role/Relationship Status Dates Dr. Nguyễn Al DO Emergency Provider Active Start : December 19, 2024 End: December 20, 2024 Dr. Jhonatan Garcia , Primary Care Provider Active Start: December 19, 2024 End: December 20, 2024 Goals (unrecognized section and content) Goals may [...] BE BASED ON THE PRIMARY CLINICAL RECORDS. [employer] provides no warranty or guarantee of the accuracy or completeness of information in this document.
[2024-12-20] MEDS: fentaNYL 100 MCG/2 ML Ampul 50 MCG IV (20:27)
--- NOTE | 2024-12-20 20:30 | ED.RN ---
Pt noted increasing pain surrounding external fixation pain inner right ankle. This RN noted blood seeping from both ends of the pin. Dr. Ayan britton.
--- OUTSIDE RECORDS SUMMARY | 2024-12-20 20:33 | XMS RPT_ITS | CCD ---
Author Organization [facility] Care Team Providers Care Telemarketer Supervisor Name Role Phone Sarah Cohnn Referring Unavailable [...] DEMI HUSTON MD [facility] DEMI HUSTON MD [facility]ending [facility] Unavailable SAMY JONES Attending Un[facility] Unavailable CINDY HERNANDEZ MD Consulting Unavailable EDWARDO PETTIT, DR LEVIN Attending Unavailabl e [facility] Unavailable ANY DO, SLOANE D Attending Unavailable [facility] Unavailable ANY DO SLOANE D Attending Unavailable [facility] Admitting Unavailable [facility] Attending Unavailable [facility] Care Un[facility] Unavailable KAVYA COMMUNITY HEALTH NAVIGATOR-CASING FLUID TENDER, JONNY Attending U JAKE Ring Attending Unavailable JAKE MAXWELL Primary Care Unavailable [facility]WELL Admitting [facility] Un[facility] Gudla OLS, Dolly Referring Unavailable Gudla OLS, Dolly Attending Unavailable [facility] Un[facility] Gudla OLS, Dolly Attending Unavailable Gudla OLS, Dolly Attending Unavailable [facility] Un[facility] Gudla OLS, Dolly Referring Unavailable Gudla OLS, Dolly Attending Un[facility] Unavailable Gudla OLS, Dolly Attending Unavailable MANSOOR PETTIT, DR SONNY Woods Admitting Unavailable [facility] Unavail able KORPI DO, NANI Consulting Unavailable MAXIME COLLINS DO Attending Unavailable TE CASEY MD Consulting Unavailable NATHANIEL PETTIT FACP, DELORES Ashton Consulting Unavail able LUIS PETTIT, DR GUAJARDO Consulting Unavailab herberth MARTIN MD, DR MAYRA ROBINS Consulting Unavaila jacob INGRAM MD, BRENNON Attending Unavailable CINDY HERNANDEZ MD Admitting Unavailable [facility] Unavail able HELENA GAINES MD Consulting Unavailable ALIZE PETTIT, DR UPTON Consulting Unavailable CINDY HERNANDEZ MD Consulting Unavailable [facility] Unavail able FELICE STONE, NANI Admitting Unavailable FELICE STONE NANI Attending Unavailable LUPE STONE, DR ORTIZ Consulting Unavailable CHANTAL WHEATLEY DO Consulting Unavailable MELISSA MARIN MD Consulting Unavailable HOSPITALIST, LARRY Consulting Unavailable DICKSON PETTIT, JANAE Consulting Unavailable NADIR PETTIT, DR JONES Admitting Unavailab le LORSON COMMUNITY HEALTH NAVIGATOR-CASING FLUID TENDER, [facility] Care Unavail able STEFANIE PETTIT, MOY Attending U ARIEL Corona MD Consulting Unavailable L[facility]SON COMMUN[facility] HEALTH NAVIGATOR-CASING FLUID TENDER, [facility] Unavail able DELORES MURO DO Attending Unavailable MANSOOR PETTIT, DR SONNY Woods Consulting Unavailable FROMMELT , CIRILO Attending Unavailable [facility]SON [facility]UN[facility] HEALTH NAVIGATOR-CASING FLUID TENDER, RANGELY Primary Care Unavail able JEREMIE MCCORMACK MD Attending Unavailable [facility]UN[facility] HEALTH NAVIGATOR-CASING FLUID TENDER, RANGELY Primary Care Unavail able HEATH PETTIT, DR WILNER Urbina Attending Unavailabl e LORSON COMMUNITY HEALTH NAVIGATOR-CASING FLUID TENDER, [facility] Care Unavail able LORSON COMMUNITY HEALTH NAVIGATOR-CASING FLUID TENDER, [facility] Care Unavail able FROMMELT , CIRILO Attending Unavailable ROBERT PETTIT, DR SAMY Cameron Attending Leo HERNANDEZ MD, CINDY Aden Consulting Unavailable LORSON COMMUNITY HEALTH NAVIGATOR-CASING FLUID TENDER, [facility] Care Unavail able DELORES MURO DO Admitting Unavailable LUPE STONE, DR ORTIZ Attending Unavailable [facility]UN[facility] HEALTH NAVIGATOR-CASING FLUID TENDER, [facility] Care Unavail able LORSON COMMUNITY HEALTH NAVIGATOR-CASING FLUID TENDER, [facility] Care Unavail able LORSON COMMUNITY HEALTH NAVIGATOR-CASING FLUID TENDER, RANGELY Attending Unavail able LORSON COMMUNITY HEALTH NAVIGATOR-CASING FLUID TENDER, [facility] Care Unavail able YANES COMMUNITY HEALTH NAVIGATOR-CASING FLUID TENDER, HELEN Attending Unava ilable LORSON COMMUNITY HEALTH NAVIGATOR-CASING FLUID TENDER, [facility] Care Unavail able LORSON COMMUNITY HEALTH NAVIGATOR-CASING FLUID TENDER, RANGELY Attending Unavail able LORSON COMMUNITY HEALTH NAVIGATOR-CASING FLUID TENDER, [facility] Care Unavail able LORSON COMMUNITY HEALTH NAVIGATOR-CASING FLUID TENDER, GIRMA Attending Unavail able LORSON COMMUNITY HEALTH NAVIGATOR-CASING FLUID TENDER, [facility] Care Unavail able LORSON COMMUNITY HEALTH NAVIGATOR-CASING FLUID TENDER, RANGELY Attending Unavail able LORSON COMMUNITY HEALTH NAVIGATOR-CASING FLUID TENDER, [facility] Care Unavail able LORSON COMMUNITY HEALTH NAVIGATOR-CASING FLUID TENDER, RANGELY Attending Unavail able LORSON COMMUNITY HEALTH NAVIGATOR-CASING FLUID TENDER, [facility] Care Unavail able LORSON COMMUNITY HEALTH NAVIGATOR-CASING FLUID TENDER, RANGELY Attending Unavail able [facility] D[facility] P[facility], [place] Primary Care Provider [phone] Jamila PETTIT, Dr. Alberto Attending Provider Unavailchuck Marino MD, Dr. Alberto Referring Provider Unavailchuck Tavera, Dr. Adrian Emergency Provider Dr. Jhonatan Garcia DO Primary Care Provider Allergies Allergy Classification Reported Allergen(s) Allergy Type Date of Onset Reaction(s) Facility (8 sources) HMG-CoA reductase inhibitor; 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: [statins] Propensity to adverse reactions to drug myalgia [facility] (1 source) Xoeaqsi-Qgj-Wow Reductase Inhibitor Allergy to substance [facility] Medications Current Medications Medication Drug Class(es) [...] every six hours as needed for pain Wallowa 325- 5 mg oral tablet Dose = 1 tab(s), Oral, q6h, PRN As needed for severe pain, X 3 day(s), # 12 tab(s), 0 Refill(s), Contusion of rib on right side, 144.4 Start Date: 05/05/23 Stop Date: 05/08/23 Status: Ordered Start: 07-15-2022 End: 07-17-2022 take 1 tablet by mouth every six hours as needed for pain Wallowa 325- 5 mg oral tablet Dose = [...] day(s), # 28 tab(s), 0 Refill(s), Pharmacy: [facility]/pharmacy #[id number], Post-op pain, 177.8, cm, 10/17/24 1:29:00 [...] q6h, # 120 EA, 0 Refill(s), [id number] 176, cm, 08/27/24 14:57:00 EDT, Height, [...] 90 tab(s), 3 Refill(s), [facility]: [facility] #[id number], 178.5, cm, 08/08/23 13:32:00 EDT, Height, kg, [...] 100 tab(s), 3 Refill(s), Pharmacy: [facility] #[id number], 178.5, cm, 08/08/23 13:32:00 EDT, Height, kg, [...] device, # 1 EA, 0 Refill(s), Pharmacy: [facility], 177.8, cm, 11/28/23 13:54:00 EDT, Height, 151.4, kg, 11/28/23 13:54:00 EDT, Dosing Weight Start Date: 12/12/23 Status: Ordered Quantity: 1.0 Unit: EA Repeat number: 1 Start: 12-12-2023 Blood Glucose Test Machine See Instructions, Use glucometer daily as directed for blood sugar checks. Dispense insurance preferred device, # 1 EA, 0 Refill(s), Pharmacy: [facility], 177.8, cm, 11/28/23 13:54:00 EDT, Height, 151.4, kg, 11/28/23 13:54:00 EDT, Dosing Weight Start Date: 12/12/23 Status: Ordered cephalexin 500 mg oral tablet (2 sources) Cephalosporin Antibacterial Start: 11-28-2024 End: 12-12-2024 cephalexin 500 mg oral tablet Dose : 500 mg = 1 tab(s), Oral, QID, X 14 day(s), # 56 tab(s), 0 Refill(s), 12/12/24 1:19:00 PM EDT, Pharmacy: [facility]/pharmacy #[id number], 177.8, cm, 11/24/24 11:36:00 EDT, Height, [...] BID, # 180 cap(s), 4 Refill(s), Pharmacy: [facility]/pharmacy #[id number], 177.8, cm, 10/02/24 6:28:00 EDT, Height, kg, 10/02/24 6:28:00 EDT, Dosing Weight Start Date: 10/04/24 Status: Ordered Quantity: 180.0 Unit: cap(s) Repeat number: 5 Start: 09-24-2024 Tikosyn 250 mc g oral capsule Dose : 250 mcg = 1 cap(s), Oral, BID, # 180 cap(s), 1 Refill(s), Pharmacy: [facility]/pharmacy #[id number], 175, cm, 09/05/24 16:01:00 EDT, Height, kg, 09/05/24 16:01:00 EDT, Dosing Weight Start Date: 09/24/24 Status: Ordered Quantity: 180.0 Unit: cap(s) Repeat number: 2 Start: 12-12-2023 Tikosyn 250 mc g oral capsule Dose : 250 mcg = 1 cap(s), Oral, BID, # 180 cap(s), 3 Refill(s), Pharmacy: [facility]/pharmacy #[id number], 177.8, cm, 11/28/23 13:54:00 EDT, Height, kg, 11/28/23 13:54:00 EDT, Dosing Weight Start Date: 12/12/23 Status: Ordered Quantity: 180.0 Unit: cap(s) Repeat number: 4 Start: 06-09-2023 Tikosyn 250 mc g oral capsule Dose : 250 mcg = 1 cap(s), Oral, BID, # 60 cap(s), 2 Refill(s), Pharmacy: [facility] #[id number], 176, cm, 06/07/23 13:36:00 EST, Height, kg, 06/07/23 13:36:00 EST, Dosing Weight Start Date: 06/09/23 Status: Ordered 0.5 ml dulaglutide 3 mg/ml auto-injector (14 sources) GLP-1 Receptor Agonist Start: 04-15-2024 End: 10-02-2025 inject 1 dose by subcutaneous injection every week Trulicity Pen 1.5 mg/0.5 mL subcutaneous solution Dose : 1.5 mg =, Subcutaneous, qWeek, # 12 EA, 3 Refill(s), [id number], 177.8, cm, 10/02/24 6:28:00 EDT, [...] 4 EA, 3 Refill(s), Pharmacy: [facility], 177.8, cm, 11/28/23 13:54:00 EDT, Height, kg, 11/28/23 13:54:00 EDT, Dosing Weight Start Date: 12/12/23 Stop Date: 04/02/24 Status: Ordered Start: 08-21-2023 inject 0.5 mL by sub cutaneous injection every week Trulicity Pen 0.75 mg/0.5 mL subcutaneous solution Dose : 0.75 mg = 0.5 mL, Subcutaneous, qWeek, # 2.5 mL, 5 Refill(s), 0.5 mL/Pen, Pharmacy: [facility] #[id number], 177.8, cm, 08/09/23 21:07:00 EDT, Height, kg, [...] qDay, # 30 cap(s), 3 Refill(s), Pharmacy: [facility], 177.8, cm, 11/28/23 13:54:00 EDT, Height, kg, 11/28/23 13:54:00 EDT, Dosing Weight Start Date: 12/12/23 Status: Ordered Start: 08-08-2023 End: 08-02-2024 FLUoxetine 10 mg oral capsul e Dose : 10 mg = 1 cap(s), Oral, qDay, # 30 cap(s), 0 Refill(s), Pharmacy: [facility], 175, cm, 05/14/24 13:59:00 EST, Height, kg, 05/14/24 13:57:00 EST, Dosing Weight Start Date: 05/14/24 Status: Ordered Quantity: 30.0 Unit: cap(s) Repeat number: 1 Start: 06-09-2023 FLUoxetine 10 mg oral capsule Dose : 10 mg = 1 cap(s), Oral, qDay, # 30 cap(s), 2 Refill(s), Pharmacy: [facility] #[id number], 176, cm, 06/07/23 13:36:00 EST, Height, kg, 06/07/23 13:36:00 EST, Dosing Weight Start Date: 06/09/23 Status: Ordered Start: 01-31-2023 FLUoxetine 20 mg oral tablet Dose : 20 mg = 1 tab(s), Oral, qDay, # 90 tab(s), 3 Refill(s), Pharmacy: [facility] #[id number], 175.3, cm, 12/23/22 6:37:00 EDT, Height, kg, 12/23/22 6:38:00 EDT, Dosing Weight Start Date: 01/31/23 Status: Ordered Start: 12-13-2022 FLUoxetine 20 mg oral tablet Dose : 20 mg = 1 tab(s), Oral, qDay, # 30 tab(s), 3 Refill(s), [facility] #[id number], 175.3, cm, 12/13/22 14:43:00 EDT, Height Start Date: 12/13/22 Status: Ordered Start: 11-08-2022 FLUoxetine 10 mg oral tablet Dose : 10 mg = 1 tab(s), Oral, qDay, # 30 tab(s), 2 Refill(s), Pharmacy: [facility] #[id number], 177, cm, 11/08/22 13:50:00 EDT, Height Start Date: 11/08/22 Status: Ordered 120 actuat fluticasone propionate 0.11 mg/actuat metered dose inhaler (3 sources) Corticosteroid Start: 08-08-2023 End: 08-02-2024 take 2 puff(s) by inhalation twice daily Flovent HFA 110 mcg/inh inhalation aerosol 2 puff(s), Inhalation, BID, # 3 EA, 3 Refill(s), Pharmacy: [facility] #[id number], 178.5, cm, 08/08/23 13:32:00 EDT, Height, kg, [...] daily., # 30 tab(s), 0 Refill(s), Pharmacy: [facility], 175, cm, 02/13/24 15:03:00 EDT, [...] 135 tab(s), 3 Refill(s), Pharmacy: [facility], 177.8, cm, 11/28/23 13:54:00 EDT, Height, kg, 11/28/23 13:54:00 EDT, Dosing Weight Start Date: 12/12/23 Status: Ordered Start: 08-08-2023 take 1 tablet by brandon th in the morning, then take 0.5 tablet by mouth in the evening Lasix 40 mg oral tablet See Instructions, 1 tab in AM and 0.5 tab in PM, # 135 tab(s), 3 Refill(s), Pharmacy: [facility] #[id number], 178.5, cm, 08/08/23 13:32:00 EDT, Height, kg, 08/08/23 13:32:00 EDT, Dosing Weight Start Date: 08/08/23 Status: Ordered Start: 11-14-2022 take 1 tablet by brandon th in the morning, then take 0.5 tablet by mouth in the evening Lasix 40 mg oral tablet See Instructions, 1 tab in AM and 0.5 tab in PM, # 135 tab(s), 0 Refill(s), Pharmacy: [facility] #[id number], 177, cm, 11/08/22 13:50:00 EDT, Height, kg, 11/08/22 13:50:00 EDT, Dosing Weight Start Date: 11/14/22 Status: Ordered Start: 10-23-2022 furosemide 20 mg oral tablet Dose : 20 mg = 1 tab(s), Oral, Daily, Take 2 tablets daily for the first 3 days followed by 1 tablet daily., # 30 tab(s), 3 Refill(s), Pharmacy: [facility]/pharmacy #[id number], 175, cm, 02/09/24 15:58:00 EDT, Height, [...] 120 cap(s), 5 Refill(s), 06/09/24 4:10:00 PM RUST, Pharmacy: [facility], 177.8, cm, 11/28/23 13:54:00 EDT, Height, [...] 05/31/23 2:41:00 PM EST, Pharmacy: [facility] #[id number], 175.3, cm, 12/23/22 6:37:00 EDT, Height, kg, [...] 30 tab(s), 6 Refill(s), [facility]: [facility] #[id number], 175.3, cm, 12/23/22 6:37:00 EDT, Height, kg, 12/23/22 6:38:00 EDT, Dosing Weight Start Date: 12/23/22 Status: Ordered metFORMIN hydrochloride 500 mg oral tablet (8 sources) Biguanide Start: 01-31-2023 MetFORMIN (Eqv-Fortamet) 500 mg oral tablet, EXTENDED RELEASE Dose : 500 mg = 1 tab(s), Oral, qDay, # 90 tab(s), 3 Refill(s), [facility]acy: [facility] #[id number], 175.3, cm, 12/23/22 6:37:00 EDT, Height, kg, [...] chew, # 60 tab(s), 3 Refill(s), Pharmacy: [facility] #[id number], Shortness of breath, 175.3, cm, 03/22/23 13:31:00 EDT, Height, kg, 03/22/23 13:31:00 EDT, Dosing Weight Start Date: 03/22/23 Stop Date: 03/29/23 Status: Ordered Start: 12-23-2022 Toprol-XL 50 m g oral tablet, extended release Dose : 50 mg = 1 tab(s), Oral, BID, # 60 tab(s), 6 Refill(s), Pharmacy: [facility] #[id number], 175.3, cm, 12/23/22 6:37:00 EDT, Height, kg, [...] day(s), # 30 EA, 5 Refill(s), Pharmacy: [facility] #[id number], 177, cm, 11/08/22 13:50:00 EDT, Height Start Date: 11/08/22 Stop Date: 05/07/23 Status: Ordered nystatin 832468 unt/ml topical cream (1 source) Polyene Antifungal Start: 01-12-2024 End: 02-01-2024 nystatin 100,000 units/g topical cream Apply 1 frida, Topical, BID, X 10 day(s), # 30 gram(s), 1 Refill(s), Pharmacy: [facility]/pharmacy #[id number], Cream, 177, cm, 01/12/24 9:42:00 EDT, Height, 148.6, kg, 01/12/24 9:42:00 EDT, Dosing Weight Start Date: 01/12/24 Stop Date: 02/01/24 Status: Ordered omeprazole 40 mg delayed release oral capsule (20 sources) Proton Pump Inhibitor Start: 09-19-2024 omeprazole 40 mg oral delayed release capsule Dose : 40 mg = 1 cap(s), Oral, BID, before a meal., # 180 cap(s), 0 Refill(s), [id number], 175, cm, 09/05/24 16:01:00 EDT, Height, kg, 09/05/24 16:01:00 EDT, Dosing Weight Start Date: 09/19/24 Status: Ordered Quantity: 180.0 Unit: cap(s) Repeat number: 1 Start: 12-12-2023 omeprazole 40 mg oral delayed release capsule Dose : 40 mg = 1 cap(s), Oral, BID, before a meal., # 180 cap(s), 3 Refill(s), Pharmacy: [facility], 177.8, cm, 11/28/23 13:54:00 EDT, Height, kg, 11/28/23 13:54:00 EDT, Dosing Weight Start Date: 12/12/23 Status: Ordered Quantity: 180.0 Unit: cap(s) Repeat number: 4 Start: 08-08-2023 omeprazole 40 mg oral delayed release capsule Dose : 40 mg = 1 cap(s), Oral, BID, before a meal., # 180 cap(s), 3 Refill(s), [facility][id number], 178.5, cm, 08/08/23 13:32:00 EDT, Height, kg, 08/08/23 13:32:00 EDT, Dosing Weight Start Date: 08/08/23 Status: Ordered Start: 05-26-2023 omeprazole 40 mg oral delayed release capsule Dose : 40 mg = 1 cap(s), Oral, BID, before a meal. sent in absence of PCP, # 60 cap(s), 0 Refill(s), Pharmacy: [facility] #[id number], 152.8, cm, 05/12/23 11:14:00 EST, Height, kg, 05/12/23 11:14:00 EST, Dosing Weight Start Date: 05/26/23 Status: Ordered Start: 10-23-2022 End: 05-14-2023 omeprazole 40 mg oral delaye d release capsule Dose : 40 mg = 1 cap(s), Oral, BID, before a meal, # 60 cap(s), 1 Refill(s), Pharmacy: [facility] #[id number], 175.9, cm, 02/15/23 13:56:00 EDT, Height, kg, 02/15/23 13:56:00 EDT, Dosing Weight Start Date: 03/15/23 Stop Date: 05/14/23 Status: Ordered penicillin v potassium 500 mg oral tablet (1 source) Start: 05-14-2024 End: 05-24-2024 penicillin V potassium 500 mg oral tablet Dose : 500 mg = 1 tab(s), Oral, q8h, X 10 day(s), # 30 tab(s), 0 Refill(s), 05/24/24 2:36:00 PM EST, Pharmacy: [facility]/pharmacy #[id number], 175, cm, 05/14/24 13:59:00 EST, Height, 143.9, kg, 05/14/24 13:57:00 EST, Dosing Weight Start Date: 05/14/24 Stop Date: 05/24/24 Status: Ordered Quantity: 30.0 Unit: tab(s) Repeat number: 1 polyethylene glycol 3350 with electrolytes oral powder for reconstitution (2 sources) Start: 02-15-2023 polyethylene g lycol 3350 with electrolytes oral powder for reconstitution See Instructions, As directed by provider at [facility]., # 1 EA, 0 Refill(s), Pharmacy: [facility] #[id number], Colon cancer screening, 175.9, cm, 02/15/23 13:56:00 [...] food, # 90 tab(s), 3 Refill(s), [id number], 177.8, cm, 10/02/24 6:28:00 EDT, Height, kg, 10/02/24 6:28:00 EDT, Dosing Weight Start Date: 10/04/24 Status: Ordered Quantity: 90.0 Unit: tab(s) Repeat number: 4 Start: 02-09-2024 Potassium Chlo ride (Eqv-K-Tab) 10 mEq oral tablet, extended release Dose : 10 mEq = 1 tab(s), Oral, qDay, # 30 tab(s), 3 Refill(s), [id number], 175, cm, 02/09/24 15:58:00 EDT, Height, [...] 100 tab(s), 3 Refill(s), Pharmacy: [facility], 175, cm, 02/13/24 15:03:00 EDT, Height, [...] qHS, # 90 tab(s), 11 Refill(s), Pharmacy: [facility]/pharmacy #[id number], 177.8, cm, 10/02/24 6:28:00 EDT, Height, 140.3, kg, 10/02/24 6:28:00 EDT, Dosing Weight Start Date: 10/04/24 Status: Ordered Quantity: 90.0 Unit: tab(s) Repeat number: 12 Start: 12-12-2023 Xarelto 20 mg oral tablet Dose : 20 mg = 1 tab(s), Oral, qHS, # 90 tab(s), 3 Refill(s), Pharmacy: [facility], 177.8, cm, 11/28/23 13:54:00 EDT, Height, 151.4, kg, 11/28/23 13:54:00 EDT, Dosing Weight Start Date: 12/12/23 Status: Ordered Quantity: 90.0 Unit: tab(s) Repeat number: 4 Start: 10-23-2022 End: 02-06-2023 Xarelto 20 mg oral tablet Do se : 20 mg = 1 tab(s), Oral, qHS, # 90 tab(s), 3 Refill(s), Pharmacy: [facility] #[id number], 178.5, cm, 08/08/23 13:32:00 EDT, Height, 156.7, kg, 08/08/23 13:32:00 EDT, Dosing Weight Start Date: 08/08/23 Status: Ordered rosuvastatin calcium 20 mg oral tablet (3 sources) HMG-CoA Reductase Inhibitor Start: 12-12-2023 rosuvastatin 20 mg oral tablet Dose : 20 mg = 1 tab(s), Oral, Daily, # 100 tab(s), 3 Refill(s), Pharmacy: [facility], 177.8, cm, 11/28/23 13:54:00 EDT, [...] BID, # 180 tab(s), 3 Refill(s), Pharmacy: [facility], 177.8, cm, 11/28/23 13:54:00 EDT, Height, kg, 11/28/23 13:54:00 EDT, Dosing Weight Start Date: 12/12/23 Stop Date: 12/06/24 Status: Ordered Start: 03-22-2023 take 1 tablet by brandon th twice daily sacubitril-valsartan 49 mg-51 mg oral tablet Dose = 1 tab(s), Oral, BID, # 60 tab(s), 3 Refill(s), Pharmacy: [facility] #[id number], 175.3, cm, 03/22/23 13:31:00 EDT, Height, kg, [...] qDay, # 60 tab(s), 5 Refill(s), Pharmacy: [facility] #[id number], 175.3, cm, 12/23/22 6:37:00 EDT, Height, kg, 12/23/22 6:38:00 EDT, Dosing Weight Start Date: 02/07/23 Status: Ordered Start: 11-24-2022 spironolactone 25 mg oral tablet Dose : 25 mg = 1 tab(s), Oral, qDay, # 60 tab(s), 0 Refill(s), Pharmacy: [facility] #[id number], 177, cm, 11/08/22 13:50:00 EDT, Height, kg, 11/08/22 13:50:00 EDT, Dosing Weight Start Date: 11/24/22 Status: Ordered Start: 11-04-2022 spironolactone 25 mg oral tablet Dose : 25 mg = 1 tab(s), Oral, BIDM, # 60 tab(s), 0 Refill(s), Pharmacy: [facility] #[id number], 175.3, cm, 11/04/22 8:52:00 EDT, Height Start Date: 11/04/22 Status: Ordered Symbicort 80 mcg-4.5 mcg/inh Inhaler (13 sources) Start: 07-29-2024 End: 07-24-2025 take 1 dose by inhalation twice daily Symbicort 80 mcg-4.5 mcg/inh Inhaler Dose = 2 puff(s), Inhalation, BID, # 30.6 gram(s), 3 Refill(s), Pharmacy: [facility], 182, cm, 06/12/24 13:53:00 EST, [...] BID, # 10.2 gram(s), 3 Refill(s), Pharmacy: [facility], 177.8, cm, 11/28/23 13:54:00 EDT, [...] spasm, # 21 tab(s), 3 Refill(s), Pharmacy: [facility], 182, cm, 06/12/24 13:53:00 EST, Height, kg, 06/12/24 13:53:00 EST, Dosing Weight Start Date: 08/26/24 Stop Date: 09/23/24 Status: Ordered Quantity: 21.0 Unit: tab(s) Repeat number: 4 Start: 03-04-2024 tiZANidine 2 m g oral tablet Dose : 2 mg = 1 tab(s), Oral, q8h, PRN as needed for muscle spasm, # 90 tab(s), 2 Refill(s), Pharmacy: [facility], 175, cm, 02/13/24 15:03:00 EDT, Height, kg, 02/13/24 15:03:00 EDT, Dosing Weight Start Date: 03/04/24 Status: Ordered Quantity: 90.0 Unit: tab(s) Repeat number: 3 Start: 01-08-2024 tiZANidine 2 m g oral tablet Dose : 2 mg = 1 tab(s), Oral, q8h, PRN as needed for muscle spasm, # 90 tab(s), 2 Refill(s), Pharmacy: [facility], 177.8, cm, 11/28/23 13:54:00 EDT, Height, [...] qHS, # 90 tab(s), 3 Refill(s), [id number], 177.8, cm, 10/09/24 13:44:00 EDT, Height, kg, 10/09/24 13:44:00 EDT, Dosing Weight Start Date: 10/09/24 Status: Ordered Quantity: 90.0 Unit: tab(s) Repeat number: 4 Start: 09-19-2024 traZODone 100 mg oral tablet Dose : 100 mg = 1 tab(s), Oral, qHS, # 90 tab(s), 2 Refill(s), Pharmacy: [facility]/pharmacy #[id number], 175, cm, 09/05/24 16:01:00 EDT, Height, [...] 90 tab(s), 3 Refill(s), [facility]: [facility] #[id number], 178.5, cm, 08/08/23 13:32:00 EDT, Height, kg, 08/08/23 13:32:00 EDT, Dosing Weight Start Date: 08/08/23 Status: Ordered Start: 12-13-2022 End: 04-12-2023 traZODone 100 mg oral tablet Dose : 100 mg = 1 tab(s), Oral, qHS, # 90 tab(s), 3 Refill(s), [facility]: [facility] #[id number], 175.3, cm, 12/23/22 6:37:00 EDT, Height, kg, 12/23/22 6:38:00 EDT, Dosing Weight Start Date: 01/31/23 Status: Ordered Start: 11-08-2022 End: 02-06-2023 traZODone 50 mg oral tablet Dose : 50 mg = 1 tab(s), Oral, qHS, # 30 tab(s), 2 Refill(s), Pharmacy: [facility] #[id number], 177, cm, 11/08/22 13:50:00 EDT, Height, kg, [...] day(s), # 30 gram(s), 0 Refill(s), Pharmacy: [facility] #[id number], Cream, 175.3, cm, 12/13/22 14:43:00 EDT, Height, [...] 4 EA, 3 Refill(s), generic OZEMPIC, Pharmacy: [facility] #[id number], 178.5, cm, 08/08/23 13:32:00 EDT, Height, kg, [...] 90 tab(s), 3 Refill(s), Pharmacy: [facility], 177.8, cm, 11/28/23 13:54:00 EDT, Height, [...] sources) Long-term current use of anticoagulant; 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: [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] Episodic Other aftercare (1 source) Procedure carried out on subject; 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: [Encounter for other specified aftercare] Onset: 12-04-2024 Episodic Other aftercare (1 source) Encounter for surgical aftercare following surgery on the skin and subcutaneous tissue; 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: [Encounter for surgical aftercare following surgery on the skin and subcutaneous tissue] Onset: 11-14-2024 Episodic Other aftercare (1 source) 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; 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: [penitentiary (current) [...] High sensitivity method [Mass/Vol] 16 ng/L <22 [facility] Absolute lymphocyte countOrd ered By: Nguyễn Al on 12-19-2024 Lymphocytes Auto (Unsp spec) [#/Vol] 1.20 10*3/uL 0.83-4.51 [facility] Absolute neutrophil countOrd ered By: Nguyễn Al on 12-19-2024 Neutrophils (Bld) [#/Vol] 6.1 10*3/uL 2.0-7.7 [facility] Anion gap in Serum or Plasma Ordered By: Nguyễn Al on 12-19-2024 Anion gap [Moles/Vol] 10 mmol/L 5-15 [facility] Automated lymphocyte count a s percentage of total leukocytesOrdered By: Nguyễn Al on 12-19-2024 Lymphocytes/100 WBC Auto (Unsp spec) 14.4 % Low 19-41 [facility] BUN/creatinine ratioOrdered By: Nguyễn Al on 12-19-2024 Urea nitrogen/Creatinine [Mass ratio] 13.8 mg/mg 10-20 [facility] Basophil percentageOrdered B y: Nguyễn Al on 12-19-2024 Basophils/100 WBC (Bld) 0.5 % 0-1 [facility] Carbon dioxide, total [Moles /volume] in Central venous bloodOrdered By: Nguyễn Al on 12-19-2024 CO2 [Moles/Vol] 25.7 mmol/L 21.0-32.0 [facility] Chloride assayOrdered By: Shankar Al on 12-19-2024 Chloride [Moles/Vol] 97 mmol/L Low 98-108 [facility] Eosinophil percentageOrdered By: Nguyễn Al on 12-19-2024 Eosinophils/100 WBC (Bld) 1.3 % 0-5 [facility] Erythrocyte distribution wid th ratioOrdered By: Nguyễn Al on 12-19-2024 Erythrocyte distribution width (RBC) [Ratio] 13.9 % 11.6-14.6 [facility] Erythrocyte distribution wid th standard deviationOrdered By: Nguyễn Al on 12-19-2024 Erythrocyte distribution width (RBC) [Ratio] 44.8 fl High 35.1-43.9 [facility] Glomerular filtration rate ( GFR) estimation/1.73 sq m using serum, plasma, or whole bOrdered By: Nguyễn Al on 12-19-2024 GFR/1.73 sq M.predicted among non-blacks MDRD (S/P/Bld) [Vol rate/Area] 89 mL/min/{1.73_m2} >60 [facility] Comment on above: mL/min/1.73m2 CKD-EP I Creatinine Equation (2020) Hematocrit Auto (Bld) [Volum e fraction]Ordered By: Nguyễn Al 12-19-2024 Hematocrit (Bld) [Volume fraction] 44.2 % 40-54 [facility] Hemoglobin measurementOrdere d By: Nguyễn Al on 12-19-2024 Hemoglobin (Bld) [Mass/Vol] 13.7 g/dL 13.0-16.5 [facility] Immature granulocytes/100 WB C Auto (Bld)Ordered By: Nguyễn Al 12-19-2024 Immature granulocytes/100 WBC (Bld) 0.200 % 0.0-0.9 [facility] Comment on above: IG% - Immature Granu locytes (promyelocytes, myelocytes and metamyelocytes) > 1% indicates that a LEFT SHIFT is Present. International normalized rat io (INR) calculationOrdered By: Nguyễn Al on 12-19-2024 INR Coag (Bld) [Relative time] 1.5 {INR} [facility] MCV (mean corpuscular volume ) determinationOrdered By: Nguyễn Al on 12-19-2024 MCV (RBC) [Entitic vol] 87.7 fL 80-94 [facility] Mean corpuscular hemoglobin (MCH) determinationOrdered By: Nguyễn Al on 12-19-2024 MCH (RBC) [Entitic mass] 27.2 pg 27.0-32.0 [facility] Mean corpuscular hemoglobin concentration (MCHC) determinationOrdered By: Nguyễn Al on 12-19-2024 MCHC (RBC) [Mass/Vol] 31.0 g/dL Low 32-36 [facility] Mean platelet volume determi nationOrdered By: Nguyễn Al on 12-19-2024 Platelet mean volume (Bld) [Entitic vol] 9.8 fL 6.2-12.0 [facility] Monocyte percentageOrdered B y: Nguyễn Al on 12-19-2024 Monocytes/100 WBC (Bld) 10.6 % High 0-10 [facility] Neutrophil percentageOrdered By: Nguyễn Al on 12-19-2024 Neutrophils/100 WBC (Bld) 73.0 % High 47-70 [facility] Nucleated red blood cell per centageOrdered By: Nguễyn Al on 12-19-2024 Nucleated RBC/100 WBC (Bld) [Ratio] 0 % 0-5 [facility] Platelet countOrdered By: Shankar Al on 12-19-2024 Platelets (Bld) [#/Vol] 177 10*3/uL 150-450 [facility] Potassium measurement (mass/ volume)Ordered By: Nguyễn Al on 12-19-2024 Potassium (Unsp spec) [Mass/Vol] 4.1 mmol/L 3.3-5.1 [facility] Prothrombin timeOrdered By: Nguyễn Al on 12-19-2024 PT Coag (PPP) [Time] 18.1 s High 11.7-14.9 [facility] RBC Auto (Bld) [#/Vol]Ordere d By: Nguyễn Al on 12-19-2024 RBC (Bld) [#/Vol] 5.04 10*6/uL 4.6-6.2 [facility] Serum creatinine measurement (mass/volume)Ordered By: Nguyễn Al on 12-19-2024 Creatinine [Mass/Vol] 1.01 mg/dL 0.70-1.20 [facility] Serum glucose measurement (m ass/volume)Ordered By: Nguyễn Al on 12-19-2024 Glucose [Mass/Vol] 180 mg/dL High 70-99 [facility] Serum or plasma calcium scott urement (mass/volume)Ordered By: Nguyễn Al on 12-19-2024 Calcium [Mass/Vol] 8.8 mg/dL 7.6-11.0 [facility] Serum or plasma urea nitroge n measurement (mass/volume)Ordered By: Nguyễn Al on 12-19-2024 Urea nitrogen [Mass/Vol] 14 mg/dL 4-19 [facility] Sodium levelOrdered By: Nguyễn Al on 12-19-2024 Sodium [Moles/Vol] 133 mmol/L 133-145 [facility] Troponin T.cardiac [Mass/vol ume] in Serum or Plasma by High sensitivity methodOrdered By: Nguyễn Al on 12-19-2024 Troponin T.cardiac High sensitivity method [Mass/Vol] 11 ng/L <22 [facility] White blood cell (WBC) count Ordered By: Nguyễn Al on 12-19-2024 WBC (Bld) [#/Vol] 8.4 10*3/uL 4.4-11.0 [facility] .GFRon 12-13-2024 Estimated Glomerular Filtration Rate 109 ml/min/1.73sqm Normal [facility] Comment on above: Result Comment: Stages [...] GFR, ADIFF, DIMER, CBC, PBNP, TROPHS #### [address] [address] BMPon 12-13-2024 BUN/Creatinine Ratio 29 ratio High 7-27 [facility] Comment on above: Order Comment: Speci men hemolyzed. Notified Postcard on the Runcey @12/13/2024 09:23:59 EDT BP Performed By: #### A ELY REYES, BMP, MG, GFR, ADIFF, DIMER, CBC, PBNP, TROPHS #### [address] [address] Calcium [Mass/Vol] 8.8 mg/dL Normal 8.4-10.2 [facility] Comment on above: Order Comment: Speci men hemolyzed. Notified Postcard on the Runcey @12/13/2024 09:23:59 EDT BP Performed By: #### A ELY REYES, BMP, MG, GFR, ADIFF, DIMER, CBC, PBNP, TROPHS #### [address] [address] Chloride [Moles/Vol] 102 mmol/L Normal 98-107 [facility] Comment on above: Order Comment: Speci men hemolyzed. Notified Postcard on the Runcey @12/13/2024 09:23:59 EDT BP Performed By: #### A ELY REYES, BMP, MG, GFR, ADIFF, DIMER, CBC, PBNP, TROPHS #### [address] [address] CO2 [Moles/Vol] 32 mmol/L High 22-29 [facility] Comment on above: Order Comment: Speci men hemolyzed. Notified Postcard on the Runcey @12/13/2024 09:23:59 EDT BP Performed By: #### A ELY REYES, BMP, MG, GFR, ADIFF, DIMER, CBC, PBNP, TROPHS #### [address] [address] Creatinine [Mass/Vol] 0.73 mg/dL Normal 0.67-1.17 [facility] Comment on above: Order Comment: Speci men hemolyzed. Notified Postcard on the Runeliezery @12/13/2024 09:23:59 EDT BP Performed By: #### A ELY REYES, BMP, MG, GFR, ADIFF, DIMER, CBC, PBNP, TROPHS #### [address] [address] Electrolyte Balance 4.0 mEq/L Normal 4.0-15.0 [facility] Comment on above: Order Comment: Speci men hemolyzed. Notified Postcard on the Runcey @12/13/2024 09:23:59 EDT BP Performed By: #### A ELY REYES, BMP, MG, GFR, ADIFF, DIMER, CBC, PBNP, TROPHS #### [address] [address] Glucose [Mass/Vol] 137 mg/dL High 70-105 [facility] Comment on above: Order Comment: Speci men hemolyzed. Notified Postcard on the Runcey @12/13/2024 09:23:59 EDT BP Performed By: #### A ELY REYES, BMP, MG, GFR, ADIFF, DIMER, CBC, PBNP, TROPHS #### [address] [address] Potassium [Moles/Vol] 3.9 mmol/L Normal 3.5-5.1 [facility] Comment on above: Order Comment: Speci men hemolyzed. Notified Postcard on the Runcey @12/13/2024 09:23:59 EDT BP Performed By: #### A ELY REYES, BMP, MG, GFR, ADIFF, DIMER, CBC, PBNP, TROPHS #### [address] [address] Sodium [Moles/Vol] 138 mmol/L Normal 136-145 [facility] Comment on above: Order Comment: Speci men hemolyzed. Notified Postcard on the Runcey @12/13/2024 09:23:59 EDT BP Performed By: #### A ELY REYES, BMP, MG, GFR, ADIFF, DIMER, CBC, PBNP, TROPHS #### [id number] [place], [place] [address] Urea nitrogen [Mass/Vol] 21 mg/dL High 12-13 [facility] Comment on above: Order Comment: Speci men hemolyzed. Notified Damon @12/13/2024 09:23:59 EDT BP Performed By: #### A ELY REYES, BMP, MG, GFR, ADIFF, DIMER, CBC, PBNP, TROPHS #### [facility] [address] [place], [place] [address] LABORATORYOrdered By: SYSTEM SYSTEM on 12-13-2024 Calcium [...] 12-13-2024 Magnesium [Mass/Vol] 1.7 mg/dL Low 1.8-2.4 [facility] Comment on above: Performed By: #### A ELY REYES, BMP, MG, GFR, ADIFF, DIMER, CBC, PBNP, TROPHS #### [address] [address] .GFRon 12-12-2024 Estimated Glomerular Filtration Rate 111 ml/min/1.73sqm Normal [facility] Comment on above: Result Comment: Stages [...] GFR, ADIFF, DIMER, CBC, PBNP, TROPHS #### [address] [address] BMPon 12-12-2024 BUN/Creatinine Ratio 22 ratio Normal 7-27 [facility] Comment on above: Performed By: #### A ELY REYES, BMP, MG, GFR, ADIFF, DIMER, CBC, PBNP, TROPHS #### [id number] [place], [place] [address] Calcium [Mass/Vol] 9.2 mg/dL Normal 8.4-10.2 [facility] Comment on above: Performed By: #### A ELY REYES, JULIÁN, MG, GFR, ADIFF, DIMER, CBC, PBNP, TROPHS #### [address] [address] Chloride [Moles/Vol] 103 mmol/L Normal 98-107 [facility] Comment on above: Performed By: #### A ELY REYES, BMP, MG, GFR, ADIFF, DIMER, CBC, PBNP, TROPHS #### [address] [address] CO2 [Moles/Vol] 32 mmol/L High 22-29 [facility] Comment on above: Performed By: #### A ELY REYES, BMP, MG, GFR, ADIFF, DIMER, CBC, PBNP, TROPHS #### [address] [address] Creatinine [Mass/Vol] 0.69 mg/dL Normal 0.67-1.17 [facility] Comment on above: Performed By: #### A ELY REYES, JULIÁN, MG, GFR, ADIFF, DIMER, CBC, PBNP, TROPHS #### [address] [address] Electrolyte Balance 7.0 mEq/L Normal 4.0-15.0 [facility] Comment on above: Performed By: #### A ELY REYES, JULIÁN, MG, GFR, ADIFF, DIMER, CBC, PBNP, TROPHS #### [address] [address] Glucose [Mass/Vol] 115 mg/dL High 70-105 [facility] Comment on above: Performed By: #### A ELY REYES, JULIÁN, MG, GFR, ADIFF, DIMER, CBC, PBNP, TROPHS #### [address] [address] Potassium [Moles/Vol] 3.8 mmol/L Normal 3.5-5.1 [facility] Comment on above: Performed By: #### A ELY REYES, BMP, MG, GFR, ADIFF, DIMER, CBC, PBNP, TROPHS #### [id number] [place], [place] [address] Sodium [Moles/Vol] 142 mmol/L Normal 136-145 [facility] Comment on above: Performed By: #### A ELY REYES, BMP, MG, GFR, ADIFF, DIMER, CBC, PBNP, TROPHS #### [id number] [place], [place] [address] Urea nitrogen [Mass/Vol] 15 mg/dL Normal 7-18 [facility] Comment on above: Performed By: #### A ELY REYES, BMP, MG, GFR, ADIFF, DIMER, CBC, PBNP, TROPHS #### [id number] [place], [place] [address] LABORATORYOrdered By: SYSTEM SYSTEM on 12-12-2024 Calcium [...] ng/L Male: 0-76 ng/L Testing performed on Jibbigo using a homogeneous sandwich chemiluminescent immunoassay based on [employer] technology. Urea nitrogen [Mass/Vol] 15 mg/dL Normal 7 - 18 mg/dL AO ADM SS Urea nitrogen/Creatinine [Mass ratio] 22 ratio Normal 7 - 27 ratio AO ADM SS MGon 12-12-2024 Magnesium [Mass/Vol] 2.0 mg/dL Normal 1.8-2.4 [facility] Comment on above: Performed By: #### A ELY REYES, BMP, MG, GFR, ADIFF, DIMER, CBC, PBNP, TROPHS #### [address] [facility] 12-12-2024 High Sensitivity Troponin I 12 ng/L Normal 0-76 [facility] Comment on above: Result Comment: High Sensitive Troponin I Reference Ranges: Female: 0-51 ng/L Male: 0-76 ng/L Testing performed on Jibbigo using a homogeneous sandwich chemiluminescent immunoassay based on [employer] technology. Performed By: #### A ELY REYES, JULIÁN, MG, GFR, ADIFF, DIMER, CBC, PBNP, TROPHS #### [address] [address] XR CHEST 1 VIEWon 12-12-2024 XR CHEST [...] 6:38:29 AM Ordering Provider: VENITA BROTHERS Normal [facility] .Auto Diffon 12-11-2024 Basophil, Absolute 0.0 10 3/mcL Normal 0.0-0.3 [facility] Comment on above: Performed By: #### A ELY REYES, BMP, MG, GFR, ADIFF, DIMER, CBC, PBNP, TROPHS #### [address] [address] Basophils/100 WBC (Bld) 0.5 % Normal 0.0-2.5 [facility] Comment on above: Performed By: #### A ELY REYES, BMP, MG, GFR, ADIFF, DIMER, CBC, PBNP, TROPHS #### [address] [address] Eosinophil, Absolute 0.1 10 3/mcL Normal 0.0-0.7 [facility] Comment on above: Performed By: #### A ELY REYES, BMP, MG, GFR, ADIFF, DIMER, CBC, PBNP, TROPHS #### [address] [address] Eosinophils/100 WBC (Bld) 1.3 % Normal 0.0-6.0 [facility] Comment on above: Performed By: #### A ELY REYES, BMP, MG, GFR, ADIFF, DIMER, CBC, PBNP, TROPHS #### [address] [address] Lymphocyte, Absolute 0.8 10 3/mcL Low 0.9-4.3 [facility] Comment on above: Performed By: #### A ERIC, MDW, BMP, MG, GFR, ADIFF, DIMER, CBC, PBNP, TROPHS #### [address] [address] Lymphocytes/100 WBC (Bld) 9.5 % Low 20.0-40.0 [facility] Comment on above: Performed By: #### A ERIC, W, BMP, MG, GFR, ADIFF, DIMER, CBC, PBNP, TROPHS #### [address] [address] Monocyte, Absolute 0.9 10 3/mcL Normal 0.1-1.4 [facility] Comment on above: Performed By: #### A ERIC, W, BMP, MG, GFR, ADIFF, DIMER, CBC, PBNP, TROPHS #### [address] [address] Monocytes/100 WBC (Bld) 10.0 % Normal 2.0-13.0 [facility] Comment on above: Performed By: #### A ERIC, W, BMP, MG, GFR, ADIFF, DIMER, CBC, PBNP, TROPHS #### [address] [address] Neutrophils/100 WBC (Bld) 78.7 % High 50.0-75.0 [facility] Comment on above: Performed By: #### A MD ERICW, BMP, MG, GFR, ADIFF, DIMER, CBC, PBNP, TROPHS #### [address] [address] .GFRon 12-11-2024 Estimated Glomerular Filtration Rate 105 ml/min/1.73sqm Normal [facility] Comment on above: Result Comment: Stages [...] GFR, ADIFF, DIMER, CBC, PBNP, TROPHS #### [place] [id number] .MDWon 12-11-2024 Monocyte Distribution Width 18.16 Normal 0.00-20.00 [facility] Comment on above: Result Comment: For ED adult patients suspected of sepsis, MDW<=20.0 does not rule out sepsis or risk of sepsis Performed By: #### A ELY REYES, BMP, MG, GFR, ADIFF, DIMER, CBC, PBNP, TROPHS #### [place] [address] .NEUABSon 12-11-2024 Neutrophil, Absolute 6.9 10 3/mcL Normal 2.3-8.1 [facility] Comment on above: Performed By: #### A ELY REYES, BMP, MG, GFR, ADIFF, DIMER, CBC, PBNP, TROPHS #### [place] [address] CBCon 12-11-2024 Erythrocyte distribution width (RBC) [Ratio] 14.9 % Normal 11.5-15.5 [facility] Comment on above: Performed By: #### A ELY REYES, BMP, MG, GFR, ADIFF, DIMER, CBC, PBNP, TROPHS #### [place] [address] Hematocrit (Bld) [Volume fraction] 43.0 % Normal 40.0-52.0 [facility] Comment on above: Performed By: #### A ELY REYES, BMP, MG, GFR, ADIFF, DIMER, CBC, PBNP, TROPHS #### [place] [address] Hgb 14.0 G/dL Normal 13.0-17.5 [facility] Comment on above: Performed By: #### A ELY REYES, BMP, MG, GFR, ADIFF, DIMER, CBC, PBNP, TROPHS #### [address] [address] MCH (RBC) [Entitic mass] 28.2 pg Normal 27.0-33.0 [facility] Comment on above: Performed By: #### A ELY REYES, BMP, MG, GFR, ADIFF, DIMER, CBC, PBNP, TROPHS #### [address] [address] MCHC 32.7 G/dL Normal 32.0-36.0 [facility] Comment on above: Performed By: #### A ELY REYES, BMP, MG, GFR, ADIFF, DIMER, CBC, PBNP, TROPHS #### [address] [address] MCV (RBC) [Entitic vol] 86.1 fL Normal 81.0-100.0 [facility] Comment on above: Performed By: #### A ELY REYES, BMP, MG, GFR, ADIFF, DIMER, CBC, PBNP, TROPHS #### [place] [address] Platelet 208 10 3/mcL Normal 150-450 [facility] Comment on above: Performed By: #### A ELY REYES, BMP, MG, GFR, ADIFF, DIMER, CBC, PBNP, TROPHS #### [place] [address] Platelet mean volume (Bld) [Entitic vol] 7.9 fL Normal 6.4-10.5 [facility] Comment on above: Performed By: #### A ELY REYES, BMP, MG, GFR, ADIFF, DIMER, CBC, PBNP, TROPHS #### [place] [address] RBC 4.99 10 6/mcL Normal 4.50-6.00 [facility] Comment on above: Performed By: #### A ELY REYES, BMP, MG, GFR, ADIFF, DIMER, CBC, PBNP, TROPHS #### [address] [address] WBC 8.8 10 3/mcL Normal 4.5-10.8 [facility] Comment on above: Performed By: #### A ELY REYES, BMP, MG, GFR, ADIFF, DIMER, CBC, PBNP, TROPHS #### [address] [address] CMPon 12-11-2024 Albumin Level 2.8 G/dL Low 3.5-5.0 [facility] Comment on above: Performed By: #### A ELY REYES, BMP, MG, GFR, ADIFF, DIMER, CBC, PBNP, TROPHS #### [place] [address] Albumin/Globulin [Mass ratio] 0.6 {ratio} Low 1.1-2.5 [facility] Comment on above: Performed By: #### A ELY REYES, BMP, MG, GFR, ADIFF, DIMER, CBC, PBNP, TROPHS #### [address] [address] ALP [Catalytic activity/Vol] 100 U/L Normal 40-135 [facility] Comment on above: Performed By: #### A ELY REYES, BMP, MG, GFR, ADIFF, DIMER, CBC, PBNP, TROPHS #### [address] [address] ALT [Catalytic activity/Vol] 18 U/L Normal 16-63 [facility] Comment on above: Performed By: #### A ELY REYES, BMP, MG, GFR, ADIFF, DIMER, CBC, PBNP, TROPHS #### [place] [address] AST [Catalytic activity/Vol] 8 U/L Low 10-40 [facility] Comment on above: Performed By: #### A ELY REYES, BMP, MG, GFR, ADIFF, DIMER, CBC, PBNP, TROPHS #### [place] [id number] Bili Total 0.3 mg/dL Normal 0.2-1.0 [facility] Comment on above: Result Comment: Use of this assay is not recommended for patients undergoing treatment with eltrombopag due to the potential for falsely elevated results. Performed By: #### A ELY REYES, BMP, MG, GFR, ADIFF, DIMER, CBC, PBNP, TROPHS #### [place] [address] BUN/Creatinine Ratio 12 ratio Normal 7-27 [facility] Comment on above: Performed By: #### A ELY REYES, BMP, MG, GFR, ADIFF, DIMER, CBC, PBNP, TROPHS #### [place] [address] Calcium [Mass/Vol] 8.9 mg/dL Normal 8.4-10.2 [facility] Comment on above: Performed By: #### A ELY REYES, BMP, MG, GFR, ADIFF, DIMER, CBC, PBNP, TROPHS #### [place] [address] Chloride [Moles/Vol] 98 mmol/L Normal 98-107 [facility] Comment on above: Performed By: #### A ELY REYES, BMP, MG, GFR, ADIFF, DIMER, CBC, PBNP, TROPHS #### [place] [address] CO2 [Moles/Vol] 32 mmol/L High 22-29 [facility] Comment on above: Performed By: #### A ELY REYES, BMP, MG, GFR, ADIFF, DIMER, CBC, PBNP, TROPHS #### [place] [address] Creatinine [Mass/Vol] 0.82 mg/dL Normal 0.67-1.17 [facility] Comment on above: Performed By: #### A ELY REYES, BMP, MG, GFR, ADIFF, DIMER, CBC, PBNP, TROPHS #### [place] [id number] Electrolyte Balance 4.0 mEq/L Normal 4.0-15.0 [facility] Comment on above: Performed By: #### A ELY REYES, BMP, MG, GFR, ADIFF, DIMER, CBC, PBNP, TROPHS #### [address] [address] Globulin 4.6 G/dL High 2.7-4.4 [facility] Comment on above: Performed By: #### A ELY REYES, BMP, MG, GFR, ADIFF, DIMER, CBC, PBNP, TROPHS #### [address] [address] Glucose [Mass/Vol] 165 mg/dL High 70-105 [facility] Comment on above: Performed By: #### A ELY REYES, BMP, MG, GFR, ADIFF, DIMER, CBC, PBNP, TROPHS #### [address] [address] Potassium [Moles/Vol] 3.6 mmol/L Normal 3.5-5.1 [facility] Comment on above: Performed By: #### A ELY REYES, JULIÁN, MG, GFR, ADIFF, DIMER, CBC, PBNP, TROPHS #### [address] [address] Sodium [Moles/Vol] 134 mmol/L Low 136-145 [facility] Comment on above: Performed By: #### A ELY REYES, BMP, MG, GFR, ADIFF, DIMER, CBC, PBNP, TROPHS #### [address] [address] Total Protein 7.4 G/dL Normal 6.4-8.2 [facility] Comment on above: Performed By: #### A ELY REYES, BMP, MG, GFR, ADIFF, DIMER, CBC, PBNP, TROPHS #### [address] [address] Urea nitrogen [Mass/Vol] 10 mg/dL Normal 7-18 [facility] Comment on above: Performed By: #### A ERIC, MDW, BMP, MG, GFR, ADIFF, DIMER, CBC, PBNP, TROPHS #### [facility] [address] [place], [place] [address] CT ANGIOGRAPHY CHEST W/CONTR [place] 12-11-2024 CT [...] 3:29:36 AM Ordering Provider: DELORES MURO Normal [facility] DIMERon 12-11-2024 D-Dimer 593 ng/mL D-DU High 0-230 [facility] Comment on above: Result Comment: The result [...] GFR, ADIFF, DIMER, CBC, PBNP, TROPHS #### [id number] [place], [place] [address] LABORATORYOrdered By: SYSTEM SYSTEM on 12-11-2024 Troponin I.cardiac DL <= 0.01 ng/mL [Mass/Vol] 10 ng/L Normal 0 - 76 ng/L AO ADM SS Comment on above: Interpretive Data: H igh Sensitive Troponin I Reference Ranges: Female: 0-51 ng/L Male: 0-76 ng/L Testing performed on Jibbigo using a homogeneous sandwich chemiluminescent immunoassay based on [employer] technology. Albumin BCP dye [Mass/Vol] 2.8 G/dL [...] ng/L Male: 0-76 ng/L Testing performed on Jibbig[place] using a homogeneous sandwich chemiluminescent immunoassay based on [employer] technology. Urea nitrogen [Mass/Vol] 10 mg/dL Normal [...] 12-11-2024 Lipase Level 15 U/L Low 16-77 [facility] Comment on above: Performed By: #### A ERIC, MDW, BMP, MG, GFR, ADIFF, DIMER, CBC, PBNP, TROPHS #### [facility] [address] [place], [place] [address] No Panel Informationon 12-11 Legionella Urine Ag Presumptive negative for L. pneumophila serogroup 1 antigen in urine, suggesting no recent or current infection. Legionnaire's disease cannot be ruled out since other serogroups and species may also cause disease. [facility] Streptococcus Pneumoniae Urine Antig Presumptive negative for pneumococcal pneumonia, suggesting no current or recent pneumococcal infection. Infection due to Strep pneumoniae cannot be ruled out since the antigen present in the sample may be below the detection limit of the test. [facility] Comment on above: This test has not be en evaluated on patients taking antibiotics for greater than 24 hours or on patients who have recently completed an antibiotic regimen. The accuracy of this test has not been proven in young children. PBNPon 12-11-2024 Natriuretic peptide B (Bld) [Mass/Vol] 1099 pg/mL High 0-125 [facility] Comment on above: Result Comment: NT-p roBNP results of less than 300 pg/mL effectively rules out acute congestive heart failure with 99% negative predictive value. Performed By: #### A ELY REYES, JULIÁN, MG, GFR, ADIFF, DIMER, CBC, PBNP, TROPHS #### [address] [address] [facility] High Sensitivity Troponin I 10 ng/L Normal 0-76 [facility] Comment on above: Result Comment: High Sensitive Troponin I Reference Ranges: Female: 0-51 ng/L Male: 0-76 ng/L Testing performed on [employer] using a homogeneous sandwich chemiluminescent immunoassay based on [employer] technology. Performed By: #### A ELY REYES, JULIÁN, MG, GFR, ADIFF, DIMER, CBC, PBNP, TROPHS #### [id number] [place], [place] [address] High Sensitivity Troponin I 10 ng/L Normal 0-76 [facility] Comment on above: Result Comment: High Sensitive Troponin I Reference Ranges: Female: 0-51 ng/L Male: 0-76 ng/L Testing performed on [employer] using a homogeneous sandwich chemiluminescent immunoassay based on [employer] technology. Performed By: #### A ELY REYES, BMP, MG, GFR, ADIFF, DIMER, CBC, PBNP, TROPHS #### [id number] [place], [place] [address] XR CHEST 1 VIEWon 12-11-2024 XR CHEST [...] 12/11/2024 1:19:48 AM Ordering Provider: DELORES Kate [facility] .Auto Diffon 11-28-2024 Basophil, Absolute 0.0 10 3/mcL Normal 0.0-0.3 [facility] Comment on above: Performed By: #### A ERIC, CBC, BMP, ADIFF, GFR #### [address] [address] Basophils/100 WBC (Bld) 0.8 % Normal 0.0-2.5 [facility] Comment on above: Performed By: #### A ERIC, CBC, BMP, ADIFF, GFR #### [address] [address] Eosinophil, Absolute 0.1 10 3/mcL Normal 0.0-0.7 [facility] Comment on above: Performed By: #### A ERIC, CBC, BMP, ADIFF, GFR #### [address] [address] Eosinophils/100 WBC (Bld) 1.7 % Normal 0.0-6.0 [facility] Comment on above: Performed By: #### A ERIC, CBC, BMP, ADIFF, GFR #### [address] [address] Lymphocyte, Absolute 0.9 10 3/mcL Normal 0.9-4.3 [facility] Comment on above: Performed By: #### A ERIC, CBC, BMP, ADIFF, GFR #### [address] [address] Lymphocytes/100 WBC (Bld) 15.5 % Low 20.0-40.0 [facility] Comment on above: Performed By: #### A ERIC, CBC, BMP, ADIFF, GFR #### [address] [address] Monocyte, Absolute 0.6 10 3/mcL Normal 0.1-1.4 [facility] Comment on above: Performed By: #### A ERIC, CBC, BMP, ADIFF, GFR #### [address] [address] Monocytes/100 WBC (Bld) 11.2 % Normal 2.0-13.0 [facility] Comment on above: Performed By: #### A ERIC, CBC, BMP, ADIFF, GFR #### [address] [address] Neutrophils/100 WBC (Bld) 70.8 % Normal 50.0-75.0 [facility] Comment on above: Performed By: #### A ERIC, CBC, BMP, ADIFF, GFR #### [address] [address] .GFRon 11-28-2024 Estimated Glomerular Filtration Rate 107 ml/min/1.73sqm Normal [facility] Comment on above: Result Comment: Stages [...] A ERIC, CBC, BMP, ADIFF, GFR #### [address] [address] .NEUABSon 11-28-2024 Neutrophil, Absolute 4.1 10 3/mcL Normal 2.3-8.1 [facility] Comment on above: Performed By: #### A ERIC, CBC, BMP, ADIFF, GFR #### [address] [address] BMPon 11-28-2024 BUN/Creatinine Ratio 11.7 ratio Normal 10.0-22.0 [facility] Comment on above: Performed By: #### A ERIC, CBC, BMP, ADIFF, GFR #### [place] [address] Calcium [Mass/Vol] 9.2 mg/dL Normal 8.7-10.4 [facility] Comment on above: Performed By: #### A ERIC, CBC, BMP, ADIFF, GFR #### [place] [address] Chloride [Moles/Vol] 101 mmol/L Normal 98-110 [facility] Comment on above: Performed By: #### A ERIC, CBC, BMP, ADIFF, GFR #### [place] [address] CO2 [Moles/Vol] 31 mmol/L Normal 22-32 [facility] Comment on above: Performed By: #### A ERIC, CBC, BMP, ADIFF, GFR #### [place] [address] Creatinine [Mass/Vol] 0.77 mg/dL Normal 0.60-1.40 [facility] Comment on above: Result Comment: Test ing performed on frestyl analyzer using enzymatic creatinine methodology. Performed By: #### A ERIC, CBC, BMP, ADIFF, GFR #### [place] [address] Electrolyte Balance 5.0 mEq/L Normal 4.0-15.0 [facility] Comment on above: Performed By: #### A ERIC, CBC, BMP, ADIFF, GFR #### [address] [address] Glucose [Mass/Vol] 100 mg/dL Normal 70-110 [facility] Comment on above: Performed By: #### A ERIC, CBC, BMP, ADIFF, GFR #### [address] [address] Potassium [Moles/Vol] 4.0 mmol/L Normal 3.5-5.0 [facility] Comment on above: Performed By: #### A ERIC, CBC, BMP, ADIFF, GFR #### [address] [address] Sodium [Moles/Vol] 137 mmol/L Normal 136-145 [facility] Comment on above: Performed By: #### A ERIC, CBC, BMP, ADIFF, GFR #### [place] [id number] Urea nitrogen [Mass/Vol] 9.0 mg/dL Normal 8.0-22.0 [facility] Comment on above: Performed By: #### A ERIC, CBC, BMP, ADIFF, GFR #### [address] [address] CBCon 11-28-2024 Erythrocyte distribution width (RBC) [Ratio] 15.1 % Normal 11.5-15.5 [facility] Comment on above: Performed By: #### A ERIC, CBC, BMP, ADIFF, GFR #### [address] [address] Hematocrit (Bld) [Volume fraction] 42.1 % Normal 40.0-52.0 [facility] Comment on above: Performed By: #### A ERIC, CBC, BMP, ADIFF, GFR #### [address] [address] Hgb 13.8 G/dL Normal 13.0-17.5 [facility] Comment on above: Performed By: #### A ERIC, CBC, BMP, ADIFF, GFR #### [address] [address] MCH (RBC) [Entitic mass] 29.0 pg Normal 27.0-33.0 [facility] Comment on above: Performed By: #### A ERIC, CBC, BMP, ADIFF, GFR #### [address] [address] MCHC 32.8 G/dL Normal 32.0-36.0 [facility] Comment on above: Performed By: #### A ERIC, CBC, BMP, ADIFF, GFR #### [address] [address] MCV (RBC) [Entitic vol] 88.3 fL Normal 81.0-100.0 [facility] Comment on above: Performed By: #### A ERIC, CBC, BMP, ADIFF, GFR #### [place] [id number] Platelet 195 10 3/mcL Normal 150-450 [facility] Comment on above: Performed By: #### A ERIC, CBC, BMP, ADIFF, GFR #### [place] [address] Platelet mean volume (Bld) [Entitic vol] 8.4 fL Normal 6.4-10.5 [facility] Comment on above: Performed By: #### A ERIC, CBC, BMP, ADIFF, GFR #### [place] [address] RBC 4.77 10 6/mcL Normal 4.50-6.00 [facility] Comment on above: Performed By: #### A ERIC, CBC, BMP, ADIFF, GFR #### [place] [id number] WBC 5.8 10 3/mcL Normal 4.5-10.8 [facility] Comment on above: Performed By: #### A ERIC, CBC, BMP, ADIFF, GFR #### [place] [address] LABORATORYOrdered By: Moustapha Winslow on 11-28-2024 Blood Glucose Testing Reason Routine (11/28/24 5:00 PM) [facility] Glucose [Mass/Vol] 89 mg/dL Normal 70 - 110 mg/dL [facility] LABORATORYOrdered By: Andrea Mcgarry on 11-28-2024 Blood Glucose Testing Reason Routine (11/28/24 12:01 PM) [facility] Glucose [Mass/Vol] 91 mg/dL Normal 70 - 110 mg/dL [facility] Blood Glucose Testing Reason Routine (11/28/24 8:15 AM) [facility] Glucose [Mass/Vol] 93 mg/dL Normal 70 - 110 mg/dL [facility] LABORATORYOrdered By: SYSTEM SYSTEM on 11-28-2024 [...] above: Interpretive Data: T esting performed on frestyl analyzer using enzymatic creatinine methodology. Electrolyte Balance [...] on 11-27-2024 Time of Stated Blood Glucose [id number] [facility] .Auto Diffon 11-26-2024 Basophil, Absolute 0.0 10 3/mcL Normal 0.0-0.3 [facility] Comment on above: Performed By: #### TOMASA DIETRICH ABOGEL, CMP #### [address] [address] Basophils/100 WBC (Bld) 0.4 % Normal 0.0-2.5 [facility] Comment on above: Performed By: #### TOMASA DIETRICH ABOGEL, CMP #### [address] [address] Eosinophil, Absolute 0.0 10 3/mcL Normal 0.0-0.7 [facility] Comment on above: Performed By: #### TOMASA DIETRICH ABOGEL, CMP #### [address] [address] Eosinophils/100 WBC (Bld) 0.7 % Normal 0.0-6.0 [facility] Comment on above: Performed By: #### TOMASA DIETRICH ABOGEL, CMP #### [address] [address] Lymphocyte, Absolute 0.8 10 3/mcL Low 0.9-4.3 [facility] Comment on above: Performed By: #### TOMASA DIETRICH ABOGEL, CMP #### [address] [address] Lymphocytes/100 WBC (Bld) 12.2 % Low 20.0-40.0 [facility] Comment on above: Performed By: #### TOMASA DIETRICH ABOGEL, CMP #### [address] [address] Monocyte, Absolute 0.7 10 3/mcL Normal 0.1-1.4 [facility] Comment on above: Performed By: #### TOMASA DIETRICH ABOGEL, CMP #### [address] [address] Monocytes/100 WBC (Bld) 11.2 % Normal 2.0-13.0 [facility] Comment on above: Performed By: #### TOMASA DIETRICH ABOGEL, CMP #### [address] [address] Neutrophils/100 WBC (Bld) 75.5 % High 50.0-75.0 [facility] Comment on above: Performed By: #### TOMASA DIETRICH ABOGEL CMP #### [address] [address] .GFRon 11-26-2024 Estimated Glomerular Filtration Rate 103 ml/min/1.73sqm Normal [facility] Comment on above: Result Comment: Stages [...] By: #### TOMASA DIETRICH ABOGEL, CMP #### [address] [address] .NEUABSon 11-26-2024 Neutrophil, Absolute 4.9 10 3/mcL Normal 2.3-8.1 [facility] Comment on above: Performed By: #### TOMASA DIETRICH ABOGEL, CMP #### [address] [address] BMPon 11-26-2024 BUN/Creatinine Ratio 11.5 ratio Normal 10.0-22.0 [facility] Comment on above: Performed By: #### TOMASA DIETRICH ABOGEL, CMP #### [address] [address] Calcium [Mass/Vol] 9.0 mg/dL Normal 8.7-10.4 [facility] Comment on above: Performed By: #### TOMASA DIETRICH ABOGEL CMP #### [address] [address] Chloride [Moles/Vol] 100 mmol/L Normal 98-110 [facility] Comment on above: Performed By: #### TOMASA DIETRICH ABOGEL CMP #### [address] [address] CO2 [Moles/Vol] 29 mmol/L Normal 22-32 [facility] Comment on above: Performed By: #### TOMASA DIETRICH ABOGEL CMP #### [address] [address] Creatinine [Mass/Vol] 0.87 mg/dL Normal 0.60-1.40 [facility] Comment on above: Result Comment: Test ing performed on frestyl analyzer using enzymatic creatinine methodology. Performed By: #### TOMASA DIETRICH ABOGEL, CMP #### [address] [address] Electrolyte Balance 6.0 mEq/L Normal 4.0-15.0 [facility] Comment on above: Performed By: #### TOMASA DIETRICH ABOGEL, CMP #### [address] [address] Glucose [Mass/Vol] 131 mg/dL High 70-110 [facility] Comment on above: Performed By: #### TOMASA DIETRICH ABOGEL, CMP #### [address] [address] Potassium [Moles/Vol] 4.4 mmol/L Normal 3.5-5.0 [facility] Comment on above: Performed By: #### TOMASA DIETRICH ABOGEL, CMP #### [address] [address] Sodium [Moles/Vol] 135 mmol/L Low 136-145 [facility] Comment on above: Performed By: #### TOMASA DIETRICH ABOGEL, CMP #### [place] [id number] Urea nitrogen [Mass/Vol] 10.0 mg/dL Normal 8.0-22.0 [facility] Comment on above: Performed By: #### TOMASA DIETRICH ABOGEL, CMP #### [address] [address] CBCon 11-26-2024 Erythrocyte distribution width (RBC) [Ratio] 15.0 % Normal 11.5-15.5 [facility] Comment on above: Performed By: #### TOMASA DIETRICH ABOGEL, CMP #### [place] [address] Hematocrit (Bld) [Volume fraction] 42.6 % Normal 40.0-52.0 [facility] Comment on above: Performed By: #### TOMASA DIETRICH ABOGEL, CMP #### [place] [id number] Hgb 14.2 G/dL Normal 13.0-17.5 [facility] Comment on above: Performed By: #### TOMASA DIETRICH ABOGEL, CMP #### [place] [address] MCH (RBC) [Entitic mass] 29.5 pg Normal 27.0-33.0 [facility] Comment on above: Performed By: #### TOMASA DIETRICH ABOGEL, CMP #### [place] [id number] MCHC 33.4 G/dL Normal 32.0-36.0 [facility] Comment on above: Performed By: #### G , CANDELARIA RANDOLPH, CMP #### [address] [address] MCV (RBC) [Entitic vol] 88.4 fL Normal 81.0-100.0 [facility] Comment on above: Performed By: #### Abbey DEAN, CANDELARIA RANDOLPH, CMP #### [address] [address] Platelet 140 10 3/mcL Low 150-450 [facility] Comment on above: Performed By: #### Abbey DEAN, CANDELARIA RANDOLPH, CMP #### [address] [address] Platelet mean volume (Bld) [Entitic vol] 8.6 fL Normal 6.4-10.5 [facility] Comment on above: Performed By: #### TOMASA DIETRICH ABOGEL, CMP #### [place] [address] RBC 4.82 10 6/mcL Normal 4.50-6.00 [facility] Comment on above: Performed By: #### Abbey DEAN, CANDELARIA RANDOLPH, CMP #### [address] [address] WBC 6.5 10 3/mcL Normal 4.5-10.8 [facility] Comment on above: Performed By: #### Abbey DEAN, CANDELARIA RANDOLPH, CMP #### [address] [address] LABORATORYOrdered By: SYSTEM SYSTEM on 11-26-2024 Basophils [...] above: Interpretive Data: T esting performed on Zipdial CH analyzer using enzymatic creatinine methodology. Electrolyte [...] Routine cultures are held for 5 days. [facility] .Auto Diffon 11-25-2024 Basophil, Absolute 0.0 10 3/mcL Normal 0.0-0.3 [facility] Comment on above: Performed By: #### G TOMASA DEAN ABOGEL, CMP #### [facility] [address] [place] [address] Basophils/100 WBC (Bld) 0.4 % Normal 0.0-2.5 [facility] Comment on above: Performed By: #### G TOMASA DEAN ABOGEL, CMP #### [address] [address] Eosinophil, Absolute 0.1 10 3/mcL Normal 0.0-0.7 [facility] Comment on above: Performed By: #### G FR, ABSJOSELUIS ABOGEL, CMP #### [address] [address] Eosinophils/100 WBC (Bld) 0.6 % Normal 0.0-6.0 [facility] Comment on above: Performed By: #### G FR, ABSJOSELUIS ABOGEL, CMP #### [address] [address] Lymphocyte, Absolute 0.8 10 3/mcL Low 0.9-4.3 [facility] Comment on above: Performed By: #### G FR, ABSMEGHAN HUGGINSGEL, CMP #### [address] [address] Lymphocytes/100 WBC (Bld) 9.6 % Low 20.0-40.0 [facility] Comment on above: Performed By: #### G FR, ABSMEGHAN HUGGINSGEL, CMP #### [address] [address] Monocyte, Absolute 0.8 10 3/mcL Normal 0.1-1.4 [facility] Comment on above: Performed By: #### G FR, ABSMEGHAN HUGGINSGEL, CMP #### [address] [address] Monocytes/100 WBC (Bld) 9.3 % Normal 2.0-13.0 [facility] Comment on above: Performed By: #### G FR, ABSGEL, ABOGEL, CMP #### [address] [address] Neutrophils/100 WBC (Bld) 80.1 % High 50.0-75.0 [facility] Comment on above: Performed By: #### G FR, ABSGEL, ABOGEL, CMP #### [address] [address] .GFRon 11-25-2024 Estimated Glomerular Filtration Rate 102 ml/min/1.73sqm Normal [facility] Comment on above: Result Comment: Stages [...] #### G TOMASA DEAN ABOGEL, CMP #### [place] [address] .NEUABSon 11-25-2024 Neutrophil, Absolute 7.1 10 3/mcL Normal 2.3-8.1 [facility] Comment on above: Performed By: #### G TOMASA DEAN ABOGEL CMP #### [place] [address] BCIDon 11-25-2024 Acinetobacter carol-baumanii complex Not detected Normal Not Detected [facility] Comment on above: Performed By: #### A ERIC, CBC, BMP, ADIFF, GFR #### [place] [address] Bacteroides fragilis Not detected Normal Not Detected [facility] Comment on above: Performed By: #### A ERIC, CBC, BMP, ADIFF, GFR #### [place] [address] BCID Comment See Comment Normal [facility] Comment on above: Result Comment: Anti [...] A ERIC, CBC, BMP, ADIFF, GFR #### [place] [address] Moiz albicans Not detected Normal Not Detected [facility] Comment on above: Performed By: #### A ERIC, CBC, BMP, ADIFF, GFR #### [place] [address] Moiz auris Not detected Normal Not Detected [facility] Comment on above: Performed By: #### A ERIC, CBC, BMP, ADIFF, GFR #### [place] [address] Moiz glabrata Not detected Normal Not Detected [facility] Comment on above: Performed By: #### A ERIC, CBC, BMP, ADIFF, GFR #### [place] [address] Moiz krusei Not detected Normal Not Detected [facility] Comment on above: Performed By: #### A ERIC, CBC, BMP, ADIFF, GFR #### [place] [address] Moiz parapsilosis Not detected Normal Not Detected [facility] Comment on above: Performed By: #### A ERIC, CBC, BMP, ADIFF, GFR #### [place] [address] Moiz tropicalis Not detected Normal Not Detected [facility] Comment on above: Performed By: #### A ERIC, CBC, BMP, ADIFF, GFR #### [place] [address] Cryptococcus neoformans-gattii Not detected Normal Not Detected [facility] Comment on above: Performed By: #### A ERIC, CBC, BMP, ADIFF, GFR #### [place] [address] CTX-M (ESBL) Not Applicable Normal Not Detected [facility] Comment on above: Performed By: #### A ERIC, CBC, BMP, ADIFF, GFR #### [place] [address] E. Coli Not detected Normal Not Detected [facility] Comment on above: Performed By: #### A ERIC, CBC, BMP, ADIFF, GFR #### [place] [address] Enterobacter cloacae Complex Not detected Normal Not Detected [facility] Comment on above: Performed By: #### A ERIC, CBC, BMP, ADIFF, GFR #### [place] [address] Enterobacterales Not detected Normal Not Detected [facility] Comment on above: Performed By: #### A ERIC, CBC, BMP, ADIFF, GFR #### [place] [address] Enterococcus faecalis Not detected Normal Not Detected [facility] Comment on above: Performed By: #### A ERIC, CBC, BMP, ADIFF, GFR #### [place] [address] Enterococcus faecium Not detected Normal Not Detected [facility] Comment on above: Performed By: #### A ERIC, CBC, BMP, ADIFF, GFR #### [place] [address] Haemophilus influenzae Not detected Normal Not Detected [facility] Comment on above: Performed By: #### A ERIC, CBC, BMP, ADIFF, GFR #### [place] [address] IMP (Carbapenemase) Not Applicable Normal Not Detected [facility] Comment on above: Performed By: #### A ERIC, CBC, BMP, ADIFF, GFR #### [place] [address] Klebsiella aerogenes Not detected Normal Not Detected [facility] Comment on above: Performed By: #### A ERIC, CBC, BMP, ADIFF, GFR #### [place] [address] Klebsiella oxytoca Not detected Normal Not Detected [facility] Comment on above: Performed By: #### A ERIC, CBC, BMP, ADIFF, GFR #### [place] [address] Klebsiella pneumoniae group Not detected Normal Not Detected [facility] Comment on above: Performed By: #### A ERIC, CBC, BMP, ADIFF, GFR #### [place] [address] KPC (Carbapenemase) Not Applicable Normal Not Detected [facility] Comment on above: Performed By: #### A ERIC, CBC, BMP, ADIFF, GFR #### [place] [address] Listeria monocytogenes Not detected Normal Not Detected [facility] Comment on above: Performed By: #### A ERIC, CBC, BMP, ADIFF, GFR #### [place] [address] MCR-1 (Colistin Resistance) Not Applicable Normal Not Detected [facility] Comment on above: Performed By: #### A ERIC, CBC, BMP, ADIFF, GFR #### [place] [address] Mec A/C Not Applicable Normal Not Detected [facility] Comment on above: Performed By: #### A ERIC, CBC, BMP, ADIFF, GFR #### [place] [address] Mec A/C-MREJ (MRSA) Not detected Normal Not Detected [facility] Comment on above: Performed By: #### A ERIC, CBC, BMP, ADIFF, GFR #### [place] [address] NDM (Carbapenemase) Not Applicable Normal Not Detected [facility] Comment on above: Performed By: #### A ERIC, CBC, BMP, ADIFF, GFR #### [place] [address] Neisseria meningitidis (Encapsalated) Not detected Normal Not Detected [facility] Comment on above: Performed By: #### A ERIC, CBC, BMP, ADIFF, GFR #### [place] [address] OXA-48 like (Carbapenemase) Not Applicable Normal Not Detected [facility] Comment on above: Performed By: #### A ERIC, CBC, BMP, ADIFF, GFR #### [place] [address] Proteus Not detected Normal Not Detected [facility] Comment on above: Performed By: #### A ERIC, CBC, BMP, ADIFF, GFR #### [place] [address] Pseudomonas aeruginosa Not detected Normal Not Detected [facility] Comment on above: Performed By: #### A ERIC, CBC, BMP, ADIFF, GFR #### [place] [address] S. agalactiae Org specific cx Ql (Vag fld) Not detected Normal Not Detected [facility] Comment on above: Performed By: #### A ERIC, CBC, BMP, ADIFF, GFR #### [place] [address] Salmonella species Not detected Normal Not Detected [facility] Comment on above: Performed By: #### A ERIC, CBC, BMP, ADIFF, GFR #### [place] [address] Serratia marcescens Not detected Normal Not Detected [facility] Comment on above: Performed By: #### A ERIC, CBC, BMP, ADIFF, GFR #### [place] [address] Staphylococcus Detected Abnormal Not Detected [facility] Comment on above: Performed By: #### A ERIC, CBC, BMP, ADIFF, GFR #### [place] [address] Staphylococcus aureus Detected Abnormal Not Detected [facility] Comment on above: Result Comment: If S taphylococcus aureus is Detected, an Infectious Disease physician consult is required on identification. Performed By: #### A ERIC, CBC, BMP, ADIFF, GFR #### [place] [address] Staphylococcus epidermidis Not detected Normal Not Detected [facility] Comment on above: Performed By: #### A ERIC, CBC, BMP, ADIFF, GFR #### [place] [address] Staphylococcus lugdunensis Not detected Normal Not Detected [facility] Comment on above: Performed By: #### A ERIC, CBC, BMP, ADIFF, GFR #### [place] [address] Stenotrophomonas maltophilia Not detected Normal Not Detected [facility] Comment on above: Performed By: #### A ERIC, CBC, BMP, ADIFF, GFR #### [place] [address] Streptococcus Not detected Normal Not Detected [facility] Comment on above: Performed By: #### A ERIC, CBC, BMP, ADIFF, GFR #### [place] [address] Streptococcus pneumoniae Not detected Normal Not Detected [facility] Comment on above: Performed By: #### A ERIC, CBC, BMP, ADIFF, GFR #### [place] [address] Streptococcus pyogenes Not detected Normal Not Detected [facility] Comment on above: Performed By: #### A ERIC, CBC, BMP, ADIFF, GFR #### [place] [address] Van A/B Not Applicable Normal Not Detected [facility] Comment on above: Performed By: #### A ERIC, CBC, BMP, ADIFF, GFR #### [place] [address] VIM (Carbapenemase) Not Applicable Normal Not Detected [facility] Comment on above: Performed By: #### A ERIC, CBC, BMP, ADIFF, GFR #### [place] [address] BMPon 11-25-2024 BUN/Creatinine Ratio 15.7 ratio Normal 10.0-22.0 [facility] Comment on above: Performed By: #### G FR, BMP, CBC, MG, ADIFF, ANEU #### [place] [address] Calcium [Mass/Vol] 9.1 mg/dL Normal 8.7-10.4 [facility] Comment on above: Performed By: #### G FR, BMP, CBC, MG, ADIFF, ANEU #### [address] [address] Chloride [Moles/Vol] 100 mmol/L Normal 98-110 [facility] Comment on above: Performed By: #### G FR, BMP, CBC, MG, ADIFF, ANEU #### [address] [address] CO2 [Moles/Vol] 24 mmol/L Normal 22-32 [facility] Comment on above: Performed By: #### G FR, BMP, CBC, MG, ADIFF, ANEU #### [address] [address] Creatinine [Mass/Vol] 0.89 mg/dL Normal 0.60-1.40 [facility] Comment on above: Result Comment: Test ing performed on frestyl analyzer using enzymatic creatinine methodology. Performed By: #### G FR, BMP, CBC, MG, ADIFF, ANEU #### [address] [address] Electrolyte Balance 12.0 mEq/L Normal 4.0-15.0 [facility] [facility] Comment on above: Performed By: #### G FR, BMP, CBC, MG, ADIFF, ANEU #### [address] [address] Glucose [Mass/Vol] 108 mg/dL Normal 70-110 [facility] Comment on above: Performed By: #### G FR, BMP, CBC, MG, ADIFF, ANEU #### [address] [address] Potassium [Moles/Vol] 3.8 mmol/L Normal 3.5-5.0 [facility] Comment on above: Performed By: #### G FR, BMP, CBC, MG, ADIFF, ANEU #### [address] [address] Sodium [Moles/Vol] 136 mmol/L Normal 136-145 [facility] Comment on above: Performed By: #### G FR, BMP, CBC, MG, ADIFF, ANEU #### [address] [address] Urea nitrogen [Mass/Vol] 14.0 mg/dL Normal 8.0-22.0 [facility] Comment on above: Performed By: #### G FR, BMP, CBC, MG, ADIFF, ANEU #### [address] [address] CBCon 11-25-2024 Erythrocyte distribution width (RBC) [Ratio] 15.3 % Normal 11.5-15.5 [facility] Comment on above: Order Comment: QNS Performed By: #### TOMASA DIETRICH ABOGEL, CMP #### [place] [address] Hematocrit (Bld) [Volume fraction] 44.6 % Normal 40.0-52.0 [facility] Comment on above: Order Comment: QNS Performed By: #### TOMASA DIETRICH ABOGEL, CMP #### [place] [address] Hgb 14.9 G/dL Normal 13.0-17.5 [facility] Comment on above: Order Comment: QNS Performed By: #### TOMASA DIETRICH ABOGEL, CMP #### [place] [address] MCH (RBC) [Entitic mass] 29.2 pg Normal 27.0-33.0 [facility] Comment on above: Order Comment: QNS Performed By: #### TOMASA DIETRICH ABOGEL, CMP #### [place] [address] MCHC 33.4 G/dL Normal 32.0-36.0 [facility] Comment on above: Order Comment: QNS Performed By: #### TOMASA DIETRICH ABOGEL, CMP #### [place] [address] MCV (RBC) [Entitic vol] 87.6 fL Normal 81.0-100.0 [facility] Comment on above: Order Comment: QNS Performed By: #### TOMASA DIETRICH ABOGEL, CMP #### [facility] [address] [place] [address] Platelet 183 10 3/mcL Normal 150-450 [facility] Comment on above: Order Comment: QNS Performed By: #### Abbey DEAN, CANDELARIA RANDOLPH, CMP #### [facility] [address] [place] [address] Platelet mean volume (Bld) [Entitic vol] 8.3 fL Normal 6.4-10.5 [facility] Comment on above: Order Comment: QNS Performed By: #### Abbey DEAN, CANDELARIA RANDOLPH, CMP #### [address] [address] RBC 5.08 10 6/mcL Normal 4.50-6.00 [facility] Comment on above: Order Comment: QNS Performed By: #### Abbey DEAN, CANDELARIA RNADOLPH, CMP #### [address] [address] WBC 8.9 10 3/mcL Normal 4.5-10.8 [facility] Comment on above: Order Comment: QNS Performed By: #### Abbey DEAN, CANDELARIA RANDOLPH, CMP #### [address] [address] LABORATORYOrdered By: SYSTEM SYSTEM on 11-25-2024 Basophils [...] above: Interpretive Data: T esting performed on frestyl analyzer using enzymatic creatinine methodology. Electrolyte Balance [...] 11-25-2024 Magnesium [Mass/Vol] 2.1 mg/dL Normal 1.6-2.4 [facility] Comment on above: Performed By: #### G , TOMASA, CANDELARIA, CMP #### [place] [address] No Panel Informationon 11-25 [facility] Gram Positive Cocci in clusters [facility] Microscopic examination of blood, culture Culture has been received in lab and is no growth to date. Routine cultures are held for 5 days. [facility] Microscopic examination of blood, culture Staphylococcus coagulase negative Staphylococcus coagulase negative #2 Staphylococcus coagulase negative #3 Isolated from aerobe bottle only. 1 out of 2 sets positive Organism is a potential contaminant. Clinical Significance undetermined. Please contact Microbiology if further work-up is required. [facility] XR ANKLE MINIMUM 3 VIEWS LEF [...] 11/25/2024 7:46:46 PM Ordering Provider: SUZE MISHRA [facility] MAIN XR ANKLE MINIMUM 3 VIEWS [...] 11/25/2024 7:39:01 PM Ordering Provider: SUZE MISHRA [facility]IN XR TIBIA/FIBULA 2 VIEWS [facility] 11-25-2024 XR TIBIA/FIBULA 2 VIEWS RIGHT [...] 11/25/2024 7:42:39 PM Ordering Provider: ORI TOMLIN [facility] .Auto Diffon 11-24-2024 Basophil, Absolute 0.0 10 3/mcL Normal 0.0-0.3 [facility] Comment on above: Performed By: #### A ERIC, CBC, BMP, ADIFF, GFR #### [address] [address] Basophils/100 WBC (Bld) 0.2 % Normal 0.0-2.5 [facility] Comment on above: Performed By: #### A ERIC, CBC, BMP, ADIFF, GFR #### [address] [address] Eosinophil, Absolute 0.0 10 3/mcL Normal 0.0-0.7 [facility] Comment on above: Performed By: #### A ERIC, CBC, BMP, ADIFF, GFR #### [address] [address] Eosinophils/100 WBC (Bld) 0.2 % Normal 0.0-6.0 [facility] Comment on above: Performed By: #### A ERIC, CBC, BMP, ADIFF, GFR #### [address] [address] Lymphocyte, Absolute 1.2 10 3/mcL Normal 0.9-4.3 [facility] Comment on above: Performed By: #### A ERIC, CBC, BMP, ADIFF, GFR #### [address] [address] Lymphocytes/100 WBC (Bld) 9.9 % Low 20.0-40.0 [facility] Comment on above: Performed By: #### A ERIC, CBC, BMP, ADIFF, GFR #### [address] [address] Monocyte, Absolute 1.6 10 3/mcL High 0.1-1.4 [facility] Comment on above: Performed By: #### A ERIC, CBC, BMP, ADIFF, GFR #### [address] [address] Monocytes/100 WBC (Bld) 12.6 % Normal 2.0-13.0 [facility] Comment on above: Performed By: #### A ERIC, CBC, BMP, ADIFF, GFR #### [address] [address] Neutrophils/100 WBC (Bld) 77.1 % High 50.0-75.0 [facility] Comment on above: Performed By: #### A ERIC, CBC, BMP, ADIFF, GFR #### [facility] [address] [place] [address] Basophil, Absolute 0.1 10 3/mcL Normal 0.0-0.3 [facility] Comment on above: Performed By: #### A MD ERICW, BMP, MG, GFR, ADIFF, DIMER, CBC, PBNP, TROPHS #### [address] [address] Basophils/100 WBC (Bld) 0.4 % Normal 0.0-2.5 [facility] Comment on above: Performed By: #### A MD ERICW, BMP, MG, GFR, ADIFF, DIMER, CBC, PBNP, TROPHS #### [address] [address] Eosinophil, Absolute 0.0 10 3/mcL Normal 0.0-0.7 [facility] Comment on above: Performed By: #### A ELY REYES, BMP, MG, GFR, ADIFF, DIMER, CBC, PBNP, TROPHS #### [address] [address] Eosinophils/100 WBC (Bld) 0.1 % Normal 0.0-6.0 [facility] Comment on above: Performed By: #### A MD ERICW, BMP, MG, GFR, ADIFF, DIMER, CBC, PBNP, TROPHS #### [address] [address] Lymphocyte, Absolute 1.0 10 3/mcL Normal 0.9-4.3 [facility] Comment on above: Performed By: #### A MD ERICW, BMP, MG, GFR, ADIFF, DIMER, CBC, PBNP, TROPHS #### [address] [address] Lymphocytes/100 WBC (Bld) 5.8 % Low 20.0-40.0 [facility] Comment on above: Performed By: #### A MD ERICW, BMP, MG, GFR, ADIFF, DIMER, CBC, PBNP, TROPHS #### [address] [address] Monocyte, Absolute 1.9 10 3/mcL High 0.1-1.4 [facility] Comment on above: Performed By: #### A ELY REYES, BMP, MG, GFR, ADIFF, DIMER, CBC, PBNP, TROPHS #### [place] [id number] [place], [place] [address] Monocytes/100 WBC (Bld) 11.5 % Normal 2.0-13.0 [facility] Comment on above: Performed By: #### A ELY REYES, BMP, MG, GFR, ADIFF, DIMER, CBC, PBNP, TROPHS #### [address] [address] Neutrophils/100 WBC (Bld) 82.2 % High 50.0-75.0 [facility] Comment on above: Performed By: #### A ELY REYES, BMP, MG, GFR, ADIFF, DIMER, CBC, PBNP, TROPHS #### [address] [address] .GFRon 11-24-2024 Estimated Glomerular Filtration Rate 102 ml/min/1.73sqm [facility]IN Comment on above: Result Comment: [...] A ERIC, CBC, BMP, ADIFF, GFR #### [facility] [address] [place] [address] Estimated Glomerular Filtration Rate 93 ml/min/1.73sqm Normal [facility] Comment on above: Result Comment: Stages [...] GFR, ADIFF, DIMER, CBC, PBNP, TROPHS #### [address] [address] .MDWon 11-24-2024 Monocyte Distribution Width 19.29 Normal 0.00-20.00 [facility] Comment on above: Result Comment: For ED adult patients suspected of sepsis, MDW<=20.0 does not rule out sepsis or risk of sepsis Performed By: #### A ERIC, MDW, BMP, MG, GFR, ADIFF, DIMER, CBC, PBNP, TROPHS #### [address] [address] .NEUABSon 11-24-2024 Neutrophil, Absolute 9.7 10 3/mcL High 2.3-8.1 [facility] Comment on above: Performed By: #### A ERIC, CBC, BMP, ADIFF, GFR #### [facility] [address] [place] [address] Neutrophil, Absolute 13.6 10 3/mcL High 2.3-8.1 [facility] Comment on above: Performed By: #### A ERIC, MDW, BMP, MG, GFR, ADIFF, DIMER, CBC, PBNP, TROPHS #### [address] [address] BMPon 11-24-2024 BUN/Creatinine Ratio 10.0 ratio Normal 10.0-22.0 [facility] Comment on above: Performed By: #### A ERIC, CBC, BMP, ADIFF, GFR #### [address] [address] Calcium [Mass/Vol] 9.2 mg/dL Normal 8.7-10.4 [facility] Comment on above: Performed By: #### A ERIC, CBC, BMP, ADIFF, GFR #### [address] [address] Chloride [Moles/Vol] 99 mmol/L Normal 98-110 [facility] Comment on above: Performed By: #### A ERIC, CBC, BMP, ADIFF, GFR #### [address] [address] CO2 [Moles/Vol] 23 mmol/L Normal 22-32 [facility] Comment on above: Performed By: #### A ERIC, CBC, BMP, ADIFF, GFR #### [address] [address] Creatinine [Mass/Vol] 0.90 mg/dL Normal 0.60-1.40 [facility] Comment on above: Result Comment: Test ing performed on frestyl analyzer using enzymatic creatinine methodology. Performed By: #### A ERIC, CBC, BMP, ADIFF, GFR #### [address] [address] Electrolyte Balance 12.0 mEq/L Normal 4.0-15.0 [facility] Comment on above: Performed By: #### A ERIC, CBC, BMP, ADIFF, GFR #### [address] [address] Glucose [Mass/Vol] 109 mg/dL Normal 70-110 [facility] Comment on above: Performed By: #### A ERIC, CBC, BMP, ADIFF, GFR #### [address] [address] Potassium [Moles/Vol] 4.1 mmol/L Normal 3.5-5.0 [facility] Comment on above: Performed By: #### A ERIC, CBC, BMP, ADIFF, GFR #### [address] [address] Sodium [Moles/Vol] 134 mmol/L Low 136-145 [facility] Comment on above: Performed By: #### A ERIC, CBC, BMP, ADIFF, GFR #### [address] [address] Urea nitrogen [Mass/Vol] 9.0 mg/dL Normal 8.0-22.0 [facility] Comment on above: Performed By: #### A ERIC, CBC, BMP, ADIFF, GFR #### [address] [address] BUN/Creatinine Ratio 11 ratio Normal 7-27 [facility] Comment on above: Performed By: #### A MD ERICW, BMP, MG, GFR, ADIFF, DIMER, CBC, PBNP, TROPHS #### [address] [address] Calcium [Mass/Vol] 8.7 mg/dL Normal 8.4-10.2 [facility] Comment on above: Performed By: #### A MD ERICW, BMP, MG, GFR, ADIFF, DIMER, CBC, PBNP, TROPHS #### [address] [address] Chloride [Moles/Vol] 99 mmol/L Normal 98-107 [facility] Comment on above: Performed By: #### A MD ERICW, BMP, MG, GFR, ADIFF, DIMER, CBC, PBNP, TROPHS #### [address] [address] CO2 [Moles/Vol] 28 mmol/L Normal 22-29 [facility] Comment on above: Performed By: #### A MD ERICW, BMP, MG, GFR, ADIFF, DIMER, CBC, PBNP, TROPHS #### [address] [address] Creatinine [Mass/Vol] 0.97 mg/dL Normal 0.67-1.17 [facility] Comment on above: Performed By: #### A MD ERICW, BMP, MG, GFR, ADIFF, DIMER, CBC, PBNP, TROPHS #### [address] [address] Electrolyte Balance 6.0 mEq/L Normal 4.0-15.0 [facility] Comment on above: Performed By: #### A ELY REYES, BMP, MG, GFR, ADIFF, DIMER, CBC, PBNP, TROPHS #### [address] [address] Glucose [Mass/Vol] 130 mg/dL High 70-105 [facility] Comment on above: Performed By: #### A ELY REYES, BMP, MG, GFR, ADIFF, DIMER, CBC, PBNP, TROPHS #### [address] [address] Potassium [Moles/Vol] 4.9 mmol/L Normal 3.5-5.1 [facility] Comment on above: Performed By: #### A ELY REYES, BMP, MG, GFR, ADIFF, DIMER, CBC, PBNP, TROPHS #### [address] [address] Sodium [Moles/Vol] 133 mmol/L Low 136-145 [facility] Comment on above: Performed By: #### A ELY REYES, BMP, MG, GFR, ADIFF, DIMER, CBC, PBNP, TROPHS #### [address] [address] Urea nitrogen [Mass/Vol] 11 mg/dL Normal 7-18 [facility] Comment on above: Performed By: #### A ELY REYES, BMP, MG, GFR, ADIFF, DIMER, CBC, PBNP, TROPHS #### [address] [address] CBCon 11-24-2024 Erythrocyte distribution width (RBC) [Ratio] 15.1 % Normal 11.5-15.5 [facility] Comment on above: Performed By: #### A ERIC, CBC, BMP, ADIFF, GFR #### [facility] [address] [place] [address] Hematocrit (Bld) [Volume fraction] 48.7 % Normal 40.0-52.0 [facility] Comment on above: Performed By: #### A ERIC, CBC, BMP, ADIFF, GFR #### [place] [address] Hgb 15.7 G/dL Normal 13.0-17.5 [facility] Comment on above: Performed By: #### A ERIC, CBC, BMP, ADIFF, GFR #### [place] [address] MCH (RBC) [Entitic mass] 28.3 pg Normal 27.0-33.0 [facility] Comment on above: Performed By: #### A ERIC, CBC, BMP, ADIFF, GFR #### [place] [address] MCHC 32.3 G/dL Normal 32.0-36.0 [facility] Comment on above: Performed By: #### A ERIC, CBC, BMP, ADIFF, GFR #### [place] [address] MCV (RBC) [Entitic vol] 87.7 fL Normal 81.0-100.0 [facility] Comment on above: Performed By: #### A ERIC, CBC, BMP, ADIFF, GFR #### [place] [address] Platelet 190 10 3/mcL Normal 150-450 [facility] Comment on above: Performed By: #### A ERIC, CBC, BMP, ADIFF, GFR #### [place] [address] Platelet mean volume (Bld) [Entitic vol] 8.0 fL Normal 6.4-10.5 [facility] Comment on above: Performed By: #### A ERIC, CBC, BMP, ADIFF, GFR #### [place] [address] RBC 5.56 10 6/mcL Normal 4.50-6.00 [facility] Comment on above: Performed By: #### A ERIC, CBC, BMP, ADIFF, GFR #### [place] [address] WBC 12.6 10 3/mcL High 4.5-10.8 [facility] Comment on above: Performed By: #### A ERIC, CBC, BMP, ADIFF, GFR #### [facility] [address] [place] [address] Erythrocyte distribution width (RBC) [Ratio] 15.5 % Normal 11.5-15.5 [facility] Comment on above: Performed By: #### A ELY REYES, BMP, MG, GFR, ADIFF, DIMER, CBC, PBNP, TROPHS #### [address] [address] Hematocrit (Bld) [Volume fraction] 46.6 % Normal 40.0-52.0 [facility] Comment on above: Performed By: #### A ELY REYES, BMP, MG, GFR, ADIFF, DIMER, CBC, PBNP, TROPHS #### [address] [address] Hgb 15.4 G/dL Normal 13.0-17.5 [facility] Comment on above: Performed By: #### A ELY REYES, BMP, MG, GFR, ADIFF, DIMER, CBC, PBNP, TROPHS #### [address] [address] MCH (RBC) [Entitic mass] 28.8 pg Normal 27.0-33.0 [facility] Comment on above: Performed By: #### A ELY REYES, BMP, MG, GFR, ADIFF, DIMER, CBC, PBNP, TROPHS #### [address] [address] MCHC 33.0 G/dL Normal 32.0-36.0 [facility] Comment on above: Performed By: #### A ELY REYES, BMP, MG, GFR, ADIFF, DIMER, CBC, PBNP, TROPHS #### [address] [address] MCV (RBC) [Entitic vol] 87.4 fL Normal 81.0-100.0 [facility] Comment on above: Performed By: #### A ELY REYES, BMP, MG, GFR, ADIFF, DIMER, CBC, PBNP, TROPHS #### [address] [address] Platelet 240 10 3/mcL Normal 150-450 [facility] Comment on above: Performed By: #### A ELY REYES, BMP, MG, GFR, ADIFF, DIMER, CBC, PBNP, TROPHS #### [place] [id number] [place], [place] [address] Platelet mean volume (Bld) [Entitic vol] 7.8 fL Normal 6.4-10.5 [facility] Comment on above: Performed By: #### A ELY REYES, BMP, MG, GFR, ADIFF, DIMER, CBC, PBNP, TROPHS #### [place] [address] [place], [place] [address] RBC 5.34 10 6/mcL Normal 4.50-6.00 [facility] Comment on above: Performed By: #### A ELY REYES, BMP, MG, GFR, ADIFF, DIMER, CBC, PBNP, TROPHS #### [address] [address] WBC 16.6 10 3/mcL High 4.5-10.8 [facility] Comment on above: Performed By: #### A ELY REYES, BMP, MG, GFR, ADIFF, DIMER, CBC, PBNP, TROPHS #### [address] [address] [address] ANGIOGRAPHY CHEST W/CONTR [place] 11-24-2024 CT [...] 11/24/2024 6:01:11 AM Ordering Provider: CIRILO PATEL [facility] CT HEAD OR BRAIN W/O CONTRAS Ton [...] 5:55:14 AM Ordering Provider: CIRILO PATEL Normal [facility] DIMERon 11-24-2024 D-Dimer 564 ng/mL D-DU High 0-230 [facility] Comment on above: Result Comment: Spec imen [...] ADIFF, DIMER, CBC, PBNP, TROPHS #### Larry [address] [address] LABORATORYOrdered By: SYSTEM SYSTEM on 11-24-2024 Lactate [...] ng/L Male: 0-54 ng/L Testing performed on Zipdial IM analyzer using direct chemiluminescent technology. TSH [...] ng/L Male: 0-76 ng/L Testing performed on Jibbigo using a homogeneous sandwich chemiluminescent immunoassay based on [employer] technology. Urea nitrogen [Mass/Vol] 11 mg/dL Normal [...] Auto Microbiology GL SS Staphylococcus sp DNA ROSE+non-probe Ql (Pos bld culture) Detected *ABN* (11/24/24 [...] AH Auto Microbiology GL SS Vancomycin resistance Feli + vanB genes Molgen Ql (Islt/Spec) Not Applicable *NA* (11/24/24 5:08 AM) Invalid Interpretation Code Not Detected AH Auto Microbiology GL SS LACon 11-24-2024 Lactic Acid Lvl 1.0 mmol/L Normal 0.5-2.2 [facility] Comment on above: Performed By: #### A ERIC, CBC, BMP, ADIFF, GFR #### [address] [address] Lactic Acid Lvl 0.4 mmol/L Normal 0.4-2.0 [facility] Comment on above: Order Comment: order ed secondary to Sepsis Alert Performed By: #### A ERIC, MDW, BMP, MG, GFR, ADIFF, DIMER, CBC, PBNP, TROPHS #### [place] [id number] [place], [place] [address] MGon 11-24-2024 Magnesium [Mass/Vol] 2.3 mg/dL Normal 1.6-2.4 [facility] Comment on above: Performed By: #### A ERIC, CBC, BMP, ADIFF, GFR #### [address] [address] Magnesium [Mass/Vol] 1.6 mg/dL Low 1.8-2.4 [facility] Comment on above: Performed By: #### A MD ERICW, BMP, MG, GFR, ADIFF, DIMER, CBC, PBNP, TROPHS #### [address] [address] No Panel Informationon 11-24 Microscopic examination of blood, culture Culture has been received in lab and is no growth to date. Routine cultures are held for 5 days. [facility] PBNPon 11-24-2024 Natriuretic peptide B (Bld) [Mass/Vol] 4325 pg/mL High 0-900 [facility] Comment on above: Performed By: #### A ERIC, CBC, BMP, ADIFF, GFR #### [address] [address] Natriuretic peptide B (Bld) [Mass/Vol] 5358 pg/mL High 0-125 [facility] Comment on above: Result Comment: NT-p roBNP results of less than 300 pg/mL effectively rules out acute congestive heart failure with 99% negative predictive value. Performed By: #### A ERIC, MDW, BMP, MG, GFR, ADIFF, DIMER, CBC, PBNP, TROPHS #### [address] [address] TROPHSon 11-24-2024 High Sensitivity Troponin I 8 ng/L Normal 0-54 [facility] Comment on above: Result Comment: High Sensitive Troponin I Reference Ranges: Female: 0-34 ng/L Male: 0-54 ng/L Testing performed on Zipdial IM analyzer using direct chemiluminescent technology. Performed By: #### A REIC, CBC, BMP, ADIFF, GFR #### [place] [id number] High Sensitivity Troponin I 19 ng/L Normal 0-76 [facility] Comment on above: Result Comment: High Sensitive Troponin I Reference Ranges: Female: 0-51 ng/L Male: 0-76 ng/L Testing performed on Jibbigo using a homogeneous sandwich chemiluminescent immunoassay based on [employer] technology. Performed By: #### A ERIC, MDW, BMP, MG, GFR, ADIFF, DIMER, CBC, PBNP, TROPHS #### [address] [address] TSHon 11-24-2024 TSH 0.855 mIU/mL Normal 0.550-4.780 [facility] Comment on above: Performed By: #### A ERIC, CBC, BMP, ADIFF, GFR #### [place] [id number] XR CHEST 1 VIEWon 11-24-2024 XR CHEST [...] 11/24/2024 2:03:25 PM Ordering Provider: KARLENE BARCENAS [facility] MAIN Anion gap in Serum or Plasma Ordered By: Dolly Marino on 11-06-2024 Anion gap [Moles/Vol] 9 mmol/L 10-10 [facility] BUN/creatinine ratioOrdered By: Dolly Marino on 11-06-2024 Urea nitrogen/Creatinine [Mass ratio] 14.9 mg/mg 03-17 [facility] Basic Metabolic Profile (BMP )on 11-06-2024 BUN/CRE 14.9 RATIO Normal 03-17 [facility] Comment on above: Order Comment: 210 Performed By: #### L 500.2500 #### [facility] [address] [place], [address] Calcium [Mass/Vol] 9.2 mg/dL Normal 7.6-11.0 [facility] Comment on above: Order Comment: 210 Performed By: #### L 500.2500 #### [facility] [address] [place], [address] Chloride [Moles/Vol] 100 mmol/L Normal 98-108 [facility] Comment on above: Order Comment: 210 Performed By: #### L 500.2500 #### [facility] [address] [place], [address] CO2 [Moles/Vol] 27.9 mmol/L Normal 21.0-32.0 [facility] Comment on above: Order Comment: 210 Performed By: #### L 500.2500 #### [facility] [address] [place], [address] Creatinine [Mass/Vol] 0.87 mg/dL Normal 0.70-1.20 [facility] Comment on above: Order Comment: 210 Performed By: #### L 500.2500 #### [facility] [address] [place], [address] GAP 9 Normal 5-15 [facility] Comment on above: Order Comment: 210 Performed By: #### L 500.2500 #### [facility] [address] [place], [address] GFR/1.73 sq M.predicted among non-blacks MDRD (S/P/Bld) [Vol rate/Area] 103 mL/min/{1.73_m2} Normal >60 [facility] Comment on above: Order Comment: 210 Result Comment: mL/m in/1.73m2 CKD-EPI Creatinine Equation (2020) Performed By: #### L 500.2500 #### [facility] [address] [place], [address] Glucose [Mass/Vol] 104 mg/dL High 70-99 [facility] Comment on above: Order Comment: 210 Performed By: #### L 500.2500 #### [facility] [address] [place], [address] Potassium [Moles/Vol] 4.4 mmol/L Normal 3.3-5.1 [facility] Comment on above: Order Comment: 210 Performed By: #### L 500.2500 #### [facility] [address] [place], [address] Sodium [Moles/Vol] 136 mmol/L Normal 133-145 [facility] Comment on above: Order Comment: 210 Performed By: #### L 500.2500 #### [facility] [address] [place], [address] Urea nitrogen [Mass/Vol] 13 mg/dL Normal 4-19 [facility] Comment on above: Order Comment: 210 Performed By: #### L 500.2500 #### [facility] [address] [place], [address] Carbon dioxide, total [Moles /volume] in Central venous bloodOrdered By: Dolly Marino on 11-06-2024 CO2 [Moles/Vol] 27.9 mmol/L 21.0-32.0 [facility] Chloride assayOrdered By: Darrin Marino on 11-06-2024 Chloride [Moles/Vol] 100 mmol/L 98-108 [facility] Glomerular filtration rate ( GFR) estimation/1.73 sq m using serum, plasma, or whole bOrdered By: Dolly Marino on 11-06-2024 GFR/1.73 sq M.predicted among non-blacks MDRD (S/P/Bld) [Vol rate/Area] 103 mL/min/{1.73_m2} >60 [facility] Comment on above: mL/min/1.73m2 CKD-EP I Creatinine Equation (2020) Potassium measurement (mass/ volume)Ordered By: Dolly Marino on 11-06-2024 Potassium (Unsp spec) [Mass/Vol] 4.4 mmol/L 3.3-5.1 [facility] Serum creatinine measurement (mass/volume)Ordered By: Dloly Marino on 11-06-2024 Creatinine [Mass/Vol] 0.87 mg/dL 0.70-1.20 [facility] Serum glucose measurement (m ass/volume)Ordered By: Dolly Marino on 11-06-2024 Glucose [Mass/Vol] 104 mg/dL High 70-99 [facility] Serum or plasma calcium scott urement (mass/volume)Ordered By: Dolly Marino on 11-06-2024 Calcium [Mass/Vol] 9.2 mg/dL 7.6-11.0 [facility] Serum or plasma urea nitroge n measurement (mass/volume)Ordered By: Dolly Marino on 11-06-2024 Urea nitrogen [Mass/Vol] 13 mg/dL 4-19 [facility] Sodium levelOrdered By: Missael Marino on 11-06-2024 Sodium [Moles/Vol] 136 mmol/L 133-145 [facility] Absolute lymphocyte countOrd ered By: Dolly Marino on 11-04-2024 Lymphocytes Auto (Unsp spec) [#/Vol] 1.05 10*3/uL 0.83-4.51 [facility] Absolute neutrophil countOrd ered By: Dolly Marino on 11-04-2024 Neutrophils (Bld) [#/Vol] 2.8 10*3/uL 2.0-7.7 [facility] Anion gap in Serum or Plasma Ordered By: Dolly Marino on 11-04-2024 Anion gap [Moles/Vol] 10 mmol/L 5- [facility] Automated lymphocyte count a s percentage of total leukocytesOrdered By: Dolly Marino on 11-04-2024 Lymphocytes/100 WBC Auto (Unsp spec) 23.5 % - [facility] BUN/creatinine ratioOrdered By: Dolly Marino on 11-04-2024 Urea nitrogen/Creatinine [Mass ratio] 12.7 mg/mg - [facility] Basic Metabolic Profile (BMP )on 11-04-2024 BUN/CRE 12.7 RATIO Normal - [facility] Comment on above: Order Comment: 210.1 Performed By: #### L 500.2500, L100.0100, L501.5200 #### [facility] [address] [place], [address] Calcium [Mass/Vol] 9.0 mg/dL Normal 7.6-11.0 [facility] Comment on above: Order Comment: 210.1 Performed By: #### L 500.2500, L100.0100, L501.5200 #### [facility] [address] [place], [address] Chloride [Moles/Vol] 101 mmol/L Normal 98-108 [facility] Comment on above: Order Comment: 210.1 Performed By: #### L 500.2500, L100.0100, L501.5200 #### [facility] [address] [place], [address] CO2 [Moles/Vol] 28.1 mmol/L Normal 21.0-32.0 [facility] Comment on above: Order Comment: 210.1 Performed By: #### L 500.2500, L100.0100, L501.5200 #### [facility] [address] [place], [address] Creatinine [Mass/Vol] 0.80 mg/dL Normal 0.70-1.20 [facility] Comment on above: Order Comment: 210.1 Performed By: #### L 500.2500, L100.0100, L501.5200 #### [facility] [address] [place], [address] GAP 10 Normal 5-15 [facility] Comment on above: Order Comment: 210.1 Performed By: #### L 500.2500, L100.0100, L501.5200 #### [facility] [address] [place], [address] GFR/1.73 sq M.predicted among non-blacks MDRD (S/P/Bld) [Vol rate/Area] 106 mL/min/{1.73_m2} Normal >60 [facility] Comment on above: Order Comment: 210.1 Result Comment: mL/m in/1.73m2 CKD-EPI Creatinine Equation (2020) Performed By: #### L 500.2500, L100.0100, L501.5200 #### [facility] [address] [place], [address] Glucose [Mass/Vol] 96 mg/dL Normal 70-99 [facility] Comment on above: Order Comment: 210.1 Performed By: #### L 500.2500, L100.0100, L501.5200 #### [facility] [address] [place], [address] Potassium [Moles/Vol] 4.2 mmol/L Normal 3.3-5.1 [facility] Comment on above: Order Comment: 210.1 Result Comment: Hemo lysis present, Results??could be affected. ?? Performed By: #### L 500.2500, L100.0100, L501.5200 #### [facility] [address] [place], [address] Sodium [Moles/Vol] 139 mmol/L Normal 133-145 [facility] Comment on above: Order Comment: 210.1 Performed By: #### L 500.2500, L100.0100, L501.5200 #### [facility] [address] [place], [address] Urea nitrogen [Mass/Vol] 10 mg/dL Normal 4-19 [facility] Comment on above: Order Comment: 210.1 Performed By: #### L 500.2500, L100.0100, L501.5200 #### [facility] [address] [place], [address] Basophil percentageOrdered B y: Dolly Marino on 11-04-2024 Basophils/100 WBC (Bld) 0.9 % 0-1 [facility] CBC W/Diff, Automatedon 06-0 Absolute Lymph 1.05 X10 3/uL Normal 0.83-4.51 [facility] Comment on above: Order Comment: 210.1 Performed By: #### L 500.2500, L100.0100, L501.5200 #### [facility] [address] [place], [address] Absolute Neut 2.8 X10 3/uL Normal 2.0-7.7 [facility] Comment on above: Order Comment: 210.1 Performed By: #### L 500.2500, L100.0100, L501.5200 #### [facility] [address] [place], [address] Basophils/100 WBC (Bld) 0.9 % Normal 0-1 [facility] Comment on above: Order Comment: 210.1 Performed By: #### L 500.2500, L100.0100, L501.5200 #### [facility] [address] [place], [address] Eosinophils/100 WBC (Bld) 1.6 % Normal 0-5 [facility] Comment on above: Order Comment: 210.1 Performed By: #### L 500.2500, L100.0100, L501.5200 #### [facility] [address] [place], [address] Erythrocyte distribution width (RBC) [Ratio] 15.8 % High 11.6-14.6 [facility] Comment on above: Order Comment: 210.1 Performed By: #### L 500.2500, L100.0100, L501.5200 #### [facility] [address] [place], [address] Hematocrit (Bld) [Volume fraction] 41.8 % Normal 40-54 [facility] Comment on above: Order Comment: 210.1 Performed By: #### L 500.2500, L100.0100, L501.5200 #### [facility] [address] [place], [address] Hemoglobin (Bld) [Mass/Vol] 13.1 g/dL Normal 13.0-16.5 [facility] Comment on above: Order Comment: 210.1 Performed By: #### L 500.2500, L100.0100, L501.5200 #### [facility] [address] [place], [address] IG% 0.400 Normal 0.0-0.9 [facility] Comment on above: Order Comment: 210.1 Result Comment: IG% - Immature Granulocytes (promyelocytes, myelocytes and metamyelocytes) > 1% indicates that a LEFT SHIFT is Present. Performed By: #### L 500.2500, L100.0100, L501.5200 #### [facility] [address] [place], [address] Lymphocytes/100 WBC (Bld) 23.5 % Normal 19-41 [facility] Comment on above: Order Comment: 210.1 Performed By: #### L 500.2500, L100.0100, L501.5200 #### [facility] [address] [place], [address] MCH (RBC) [Entitic mass] 28.6 pg Normal 27.0-32.0 [facility] Comment on above: Order Comment: 210.1 Performed By: #### L 500.2500, L100.0100, L501.5200 #### [facility] [address] [place], [address] MCHC (RBC) [Mass/Vol] 31.3 g/dL Low 32-36 [facility] Comment on above: Order Comment: 210.1 Performed By: #### L 500.2500, L100.0100, L501.5200 #### [facility] [address] [place], [address] MCV (RBC) [Entitic vol] 91.3 fL Normal 80-94 [facility] Comment on above: Order Comment: 210.1 Performed By: #### L 500.2500, L100.0100, L501.5200 #### [facility] [address] [place], [address] Monocytes/100 WBC (Bld) 11.4 % High 0-10 [facility] Comment on above: Order Comment: 210.1 Performed By: #### L 500.2500, L100.0100, L501.5200 #### [facility] [address] [place], [address] Neutrophils/100 WBC (Bld) 62.2 % Normal 47-70 [facility] Comment on above: Order Comment: 210.1 Performed By: #### L 500.2500, L100.0100, L501.5200 #### [facility] [address] [place], [address] Nucleated RBC (Bld) [#/Vol] 0 10*3/uL Normal 0-5 [facility] Comment on above: Order Comment: 210.1 Performed By: #### L 500.2500, L100.0100, L501.5200 #### [facility] [address] [place], [address] Platelet mean volume (Bld) [Entitic vol] 9.7 fL Normal 6.2-12.0 [facility] Comment on above: Order Comment: 210.1 Performed By: #### L 500.2500, L100.0100, L501.5200 #### [facility] [address] [place], [address] Platelets (Bld) [#/Vol] 185 10*3/uL Normal 150-450 [facility] Comment on above: Order Comment: 210.1 Performed By: #### L 500.2500, L100.0100, L501.5200 #### [facility] [address] [place], [address] RBC (Bld) [#/Vol] 4.58 10*6/uL Low 4.6-6.2 [facility] Comment on above: Order Comment: 210.1 Performed By: #### L 500.2500, L100.0100, L501.5200 #### [facility] [address] [place], [address] RDW SD 53.2 fl High 35.1-43.9 [facility] Comment on above: Order Comment: 210.1 Performed By: #### L 500.2500, L100.0100, L501.5200 #### [facility] [address] [place], [address] WBC (Bld) [#/Vol] 4.5 10*3/uL Normal 4.4-11.0 [facility] Comment on above: Order Comment: 210.1 Performed By: #### L 500.2500, L100.0100, L501.5200 #### [facility] [place], [address] Carbon dioxide, total [Moles /volume] in Central venous bloodOrdered By: Dolly Marino on 11-04-2024 CO2 [Moles/Vol] 28.1 mmol/L 21.0-32.0 [facility] Chloride assayOrdered By: Darrin Marino on 11-04-2024 Chloride [Moles/Vol] 101 mmol/L 98-108 [facility] Eosinophil percentageOrdered By: Dolly Marino on 11-04-2024 Eosinophils/100 WBC (Bld) 1.6 % 0-5 [facility] Erythrocyte distribution wid th ratioOrdered By: Dolly Marino on 11-04-2024 Erythrocyte distribution width (RBC) [Ratio] 15.8 % High 11.6-14.6 [facility] Erythrocyte distribution wid th standard deviationOrdered By: Dolly Marino on 11-04-2024 Erythrocyte distribution width (RBC) [Ratio] 53.2 fl High 35.1-43.9 [facility] Glomerular filtration rate ( GFR) estimation/1.73 sq m using serum, plasma, or whole bOrdered By: Dolly Marino on 11-04-2024 GFR/1.73 sq M.predicted among non-blacks MDRD (S/P/Bld) [Vol rate/Area] 106 mL/min/{1.73_m2} >60 [facility] Comment on above: mL/min/1.73m2 CKD-EP I Creatinine Equation (2020) Hematocrit Auto (Bld) [Volum e fraction]Ordered By: Dolly Marino on 11-04-2024 Hematocrit (Bld) [Volume fraction] 41.8 % 40-54 [facility] Hemoglobin measurementOrdere d By: Dolly Marino on 11-04-2024 Hemoglobin (Bld) [Mass/Vol] 13.1 g/dL 13.0-16.5 [facility] Immature granulocytes/100 WB C Auto (Bld)Ordered By: Dolly Marino on 11-04-2024 Immature granulocytes/100 WBC (Bld) 0.400 % 0.0-0.9 [facility] Comment on above: IG% - Immature Granu locytes (promyelocytes, myelocytes and metamyelocytes) > 1% indicates that a LEFT SHIFT is Present. MCV (mean corpuscular volume ) determinationOrdered By: Dolly Marino on 11-04-2024 MCV (RBC) [Entitic vol] 91.3 fL 80-94 [facility] Magnesiumon 11-04-2024 Magnesium [Mass/Vol] 2.2 mg/dL Normal 1.5-2.2 [facility] Comment on above: Order Comment: 210.1 Performed By: #### L 500.2500, L100.0100, L501.5200 #### [facility] [address] [place], [address] Magnesium measurement (mass/ volume)Ordered By: Dolly Marino on 11-04-2024 Magnesium (Unsp spec) [Mass/Vol] 2.2 mg/dL 1.5-2.2 [facility] Mean corpuscular hemoglobin (MCH) determinationOrdered By: Dolly Marino on 11-04-2024 MCH (RBC) [Entitic mass] 28.6 pg 27.0-32.0 [facility] Mean corpuscular hemoglobin concentration (MCHC) determinationOrdered By: Dolly Marino on 11-04-2024 MCHC (RBC) [Mass/Vol] 31.3 g/dL Low 32-36 [facility] Mean platelet volume determi nationOrdered By: Dolly Marino on 11-04-2024 Platelet mean volume (Bld) [Entitic vol] 9.7 fL 6.2-12.0 [facility] Monocyte percentageOrdered B y: Dolly Marino on 11-04-2024 Monocytes/100 WBC (Bld) 11.4 % High 0-10 [facility] Neutrophil percentageOrdered By: Dolly Marino on 11-04-2024 Neutrophils/100 WBC (Bld) 62.2 % 47-70 [facility] Nucleated red blood cell per centageOrdered By: Dolly Marino on 11-04-2024 Nucleated RBC/100 WBC (Bld) [Ratio] 0 % 0-5 [facility] Platelet countOrdered By: Darrin Marino on 11-04-2024 Platelets (Bld) [#/Vol] 185 10*3/uL 150-450 [facility] Potassium measurement (mass/ volume)Ordered By: Dolly Marino on 11-04-2024 Potassium (Unsp spec) [Mass/Vol] 4.2 mmol/L 3.3-5.1 [facility] Comment on above: Hemolysis present, R esults could be affected. RBC Auto (Bld) [#/Vol]Ordere d By: Dolly Marino on 11-04-2024 RBC (Bld) [#/Vol] 4.58 10*6/uL Low 4.6-6.2 [facility] Serum creatinine measurement (mass/volume)Ordered By: Dolly Marino on 11-04-2024 Creatinine [Mass/Vol] 0.80 mg/dL 0.70-1.20 [facility] Serum glucose measurement (m ass/volume)Ordered By: Dolly Marino on 11-04-2024 Glucose [Mass/Vol] 96 mg/dL 70-99 [facility] Serum or plasma calcium scott urement (mass/volume)Ordered By: Dolly Marino on 11-04-2024 Calcium [Mass/Vol] 9.0 mg/dL 7.6-11.0 [facility] Serum or plasma urea nitroge n measurement (mass/volume)Ordered By: Dolly Marino on 11-04-2024 Urea nitrogen [Mass/Vol] 10 mg/dL 4-19 [facility] Sodium levelOrdered By: Missael Marino on 11-04-2024 Sodium [Moles/Vol] 139 mmol/L 133-145 [facility] White blood cell (WBC) count Ordered By: Dolly Marino on 11-04-2024 WBC (Bld) [#/Vol] 4.5 10*3/uL 4.4-11.0 [facility] Calculated very low density lipoprotein (VLDL) cholesterol measurementOrdered By: Dolly Marino on 10-30-2024 Calculated very low density lipoprotein (VLDL) cholesterol measurement 26 mg/dL 5-40 [facility] Hemoglobin A1con 10-30-2024 HbA1c (Bld) [Mass fraction] 5.8 % High <=5.6 [facility] Comment on above: Result Comment: Norm al < 5.7 % Prediabetic 5.7 - 6.4 % Diabetic >or= 6.5 % Please note range changes. Performed By: #### L 501.9985, L500.4100 #### [facility] [address] [place], [place], [id number] Hemoglobin A1c percentageOrd ered By: Dolly Marino on 10-30-2024 HbA1c (Bld) [Mass fraction] 5.8 % High <5.7 [facility] Comment on above: Normal < 5.7 % Predi abetic 5.7 - 6.4 % Diabetic >or= 6.5 % Please note range changes. LDL calc ser/plasOrdered By: Dolly Marino on 10-30-2024 Cholesterol in LDL [Mass/Vol] 34 mg/dL [facility] Comment on above: Gjkwdkemkw=043-039 m g/dL & Higher Kjct=182 mg/dL or greater Lipid Profileon 10-30-2024 CHOL:HDL 3.64 Normal [facility] Comment on above: Performed By: #### L 501.9985, L500.4100 #### [facility] [address] [place], [place], [id number] [phone] Cholesterol [Mass/Vol] 83 mg/dL Normal <=200 [facility] Comment on above: Result Comment: Chol esterol level, Desirable <200 mg/dL Borderline high cholesterol 200-239 mg/dL High cholesterol >=240 mg/dL Recommendations of the NCEP Adult Treatment Panel for the following risk-cutoff thresholds for the [place] population. Performed By: #### L 501.9985, L500.4100 #### [facility] [address] [place], [place], [id number] Cholesterol in HDL [Mass/Vol] 23 mg/dL Low [facility] Comment on above: Result Comment: Fern onal Cholesterol Education Program (NCEP) guidelines: <40 mg/dL: Low HDL-cholesterol (major risk factor for CHD) >= 60 mg/dL: High HDL-cholesterol (negative risk factor for CHD) HDL-cholesterol is affected by a number of factors, e.g. smoking, exercise, hormones, sex and age. Performed By: #### L 501.9985, L500.4100 #### [facility] [address] [place], [address] Cholesterol in LDL [Mass/Vol] 34 mg/dL Normal [facility] Comment on above: Result Comment: Bord othvcb=327-747 mg/dL Higher Qcoy=935 mg/dL or greater Performed By: #### L 501.9985, L500.4100 #### [facility] [address] [place], [address] Cholesterol in VLDL [Mass/Vol] 26 mg/dL Normal 5-40 [facility] Comment on above: Performed By: #### L 501.9985, L500.4100 #### [facility] [address] [place], [address] Triglyceride [Mass/Vol] 129 mg/dL Normal [facility] Comment on above: Result Comment: The drugs N-Acetylcysteine and Metamizole may falsely depress this assay. Normal range: <150 mg/dL Borderline High: 150-199 mg/dL High: 200-499 mg/dL Very High: >500 mg/dL Performed By: #### L 501.9985, L500.4100 #### [facility] [address] [place], [address] Screening total cholesterol/ high density lipoprotein (HDL) cholesterol ratioOrdered By: Dolly Marino on 10-30-2024 Cholesterol.total/Chio sterol in HDL [Mass ratio] 3.64 {ratio} [facility] Serum or plasma cholesterol in HDL measurement (mass/volume)Ordered By: Dolly Marino on 10-30-2024 Cholesterol in HDL [Mass/Vol] 23 mg/dL Low >40 [facility] Comment on above: National Cholesterol Education Program (NCEP) guidelines:<40 mg/dL: Low HDL-cholesterol (major risk factor for CHD)>= 60 mg/dL: High HDL-cholesterol (negative risk factor for CHD)HDL-cholesterol is affected by a number of factors, e.g. smoking, exercise, hormones, sex and age. Serum or plasma cholesterol measurement (mass/volume)Ordered By: Dolly Marino on 10-30-2024 Cholesterol [Mass/Vol] 83 mg/dL <201 [facility] Comment on above: Cholesterol level, D esirable <200 mg/dLBorderline high cholesterol 200-239 mg/dLHigh cholesterol >=240 mg/dLRecommendations of the NCEP Adult Treatment Panel for the following risk-cutoff thresholds for the [place] population. Triglycerides measurementOrd ered By: Dolly Marino on 10-30-2024 Triglyceride [Mass/Vol] 129 mg/dL <199 [facility] Comment on above: The drugs N-Acetylcy steine and Metamizole may falsely depress this assay. Normal range: <150 mg/dLBorderline High: 150-199 mg/dLHigh: 200-499 mg/dLVery High: >500 mg/dL Absolute lymphocyte countOrd ered By: Dolly Marino on 10-28-2024 Lymphocytes Auto (Unsp spec) [#/Vol] 1.07 10*3/uL 0.83-4.51 [facility] Absolute neutrophil countOrd ered By: Dolly Marino on 10-28-2024 Neutrophils (Bld) [#/Vol] 2.8 10*3/uL 2.0-7.7 [facility] Anion gap in Serum or Plasma Ordered By: Dolly Marino on 10-28-2024 Anion gap [Moles/Vol] 10 mmol/L 5-15 [facility] Automated lymphocyte count a s percentage of total leukocytesOrdered By: Dolly Marino on 10-28-2024 Lymphocytes/100 WBC Auto (Unsp spec) 24.0 % 19-41 [facility] BUN/creatinine ratioOrdered By: Dolly Marino on 10-28-2024 Urea nitrogen/Creatinine [Mass ratio] 13.8 mg/mg 10-20 [facility] Basic Metabolic Profile (BMP )on 10-28-2024 BUN/CRE 13.8 RATIO Normal 10-20 [facility] Comment on above: Order Comment: 210 Performed By: #### L 100.0100, L500.2500, L501.9520, L501.5200, L506.1001, L500.4100, L501.1400 #### [facility] [address] [place], [address] GAP 10 Normal 5-15 [facility] Comment on above: Order Comment: 210 Performed By: #### L 100.0100, L500.2500, L501.9520, L501.5200, L506.1001, L500.4100, L501.1400 #### [facility] [address] [place], [address] Potassium [Moles/Vol] 4.1 mmol/L Normal 3.3-5.1 [facility] Comment on above: Order Comment: 210 Performed By: #### L 100.0100, L500.2500, L501.9520, L501.5200, L506.1001, L500.4100, L501.1400 #### [facility] [address] [place], [address] Basic Metabolic Profile (BMP )Ordered By: Dolly Marino on 10-28-2024 Calcium [Mass/Vol] 8.9 mg/dL 7.6-11.0 [facility] Comment on above: Order Comment: 210 Performed By: #### L 100.0100, L500.2500, L501.9520, L501.5200, L506.1001, L500.4100, L501.1400 #### [facility] [address] [place], [address] Chloride [Moles/Vol] 98 mmol/L 98-108 [facility] Comment on above: Order Comment: 210 Performed By: #### L 100.0100, L500.2500, L501.9520, L501.5200, L506.1001, L500.4100, L501.1400 #### [facility] [address] [place], [address] CO2 [Moles/Vol] 27.1 mmol/L 21.0-32.0 [facility] Comment on above: Order Comment: 210 Performed By: #### L 100.0100, L500.2500, L501.9520, L501.5200, L506.1001, L500.4100, L501.1400 #### [facility] [address] [place], [address] Creatinine [Mass/Vol] 0.74 mg/dL 0.70-1.20 [facility] Comment on above: Order Comment: 210 Performed By: #### L 100.0100, L500.2500, L501.9520, L501.5200, L506.1001, L500.4100, L501.1400 #### [facility] [address] [place], [address] GFR/1.73 sq M.predicted among non-blacks MDRD (S/P/Bld) [Vol rate/Area] 108 mL/min/{1.73_m2} >60 [facility] Comment on above: Order Comment: 210 Result Comment: mL/m in/1.73m2 CKD-EPI Creatinine Equation (2020) Performed By: #### L 100.0100, L500.2500, L501.9520, L501.5200, L506.1001, L500.4100, L501.1400 #### [facility] [address] [place], [address] mL/min/1.73m2 CKD-EP I Creatinine Equation (2020) Glucose [Mass/Vol] 108 mg/dL High 70-99 [facility] Comment on above: Order Comment: 210 Performed By: #### L 100.0100, L500.2500, L501.9520, L501.5200, L506.1001, L500.4100, L501.1400 #### [facility] [address] [place], [address] Sodium [Moles/Vol] 135 mmol/L 133-145 [facility] Comment on above: Order Comment: 210 Performed By: #### L 100.0100, L500.2500, L501.9520, L501.5200, L506.1001, L500.4100, L501.1400 #### [facility] [address] [place], [address] Urea nitrogen [Mass/Vol] 10 mg/dL 4-19 [facility] Comment on above: Order Comment: 210 Performed By: #### L 100.0100, L500.2500, L501.9520, L501.5200, L506.1001, L500.4100, L501.1400 #### [facility] [address] [place], [address] CBC W/Diff, Automatedon 06-0 2-2024 Absolute Lymph 1.07 X10 3/uL Normal 0.83-4.51 [facility] Comment on above: Order Comment: 210 Performed By: #### L 100.0100, L500.2500, L501.9520, L501.5200, L506.1001, L500.4100, L501.1400 #### [facility] [address] [place], [address] Absolute Neut 2.8 X10 3/uL Normal 2.0-7.7 [facility] Comment on above: Order Comment: 210 Performed By: #### L 100.0100, L500.2500, L501.9520, L501.5200, L506.1001, L500.4100, L501.1400 #### [facility] [address] [place], [address] IG% 0.400 Normal 0.0-0.9 [facility] Comment on above: Order Comment: 210 Result Comment: IG% - Immature Granulocytes (promyelocytes, myelocytes and metamyelocytes) > 1% indicates that a LEFT SHIFT is Present. Performed By: #### L 100.0100, L500.2500, L501.9520, L501.5200, L506.1001, L500.4100, L501.1400 #### [facility] [address] [place], [address] Lymphocytes/100 WBC (Bld) 24.0 % Normal 19-41 [facility] Comment on above: Order Comment: 210 Performed By: #### L 100.0100, L500.2500, L501.9520, L501.5200, L506.1001, L500.4100, L501.1400 #### [facility] [address] [place], [address] Nucleated RBC (Bld) [#/Vol] 0 10*3/uL Normal 0-5 [facility] Comment on above: Order Comment: 210 Performed By: #### L 100.0100, L500.2500, L501.9520, L501.5200, L506.1001, L500.4100, L501.1400 #### [facility] [address] [place], [place], [id number] ([address] RDW SD 53.1 fl High 35.1-43.9 [facility] Comment on above: Order Comment: 210 Performed By: #### L 100.0100, L500.2500, L501.9520, L501.5200, L506.1001, L500.4100, L501.1400 #### [facility] [address] [place], [place], [id number] ([address] CBC W/Diff, AutomatedOrdered By: Dolly Marino on 10-28-2024 Basophils/100 WBC (Bld) 0.7 % 0-1 [facility] Comment on above: Order Comment: 210 Performed By: #### L 100.0100, L500.2500, L501.9520, L501.5200, L506.1001, L500.4100, L501.1400 #### [facility] [address] [place], [address] Eosinophils/100 WBC (Bld) 2.0 % 0-5 [facility] Comment on above: Order Comment: 210 Performed By: #### L 100.0100, L500.2500, L501.9520, L501.5200, L506.1001, L500.4100, L501.1400 #### [facility] [address] [place], [address] Erythrocyte distribution width (RBC) [Ratio] 15.9 % High 11.6-14.6 [facility] Comment on above: Order Comment: 210 Performed By: #### L 100.0100, L500.2500, L501.9520, L501.5200, L506.1001, L500.4100, L501.1400 #### [facility] [address] [place], [address] Hematocrit (Bld) [Volume fraction] 41.2 % 40-54 [facility] Comment on above: Order Comment: 210 Performed By: #### L 100.0100, L500.2500, L501.9520, L501.5200, L506.1001, L500.4100, L501.1400 #### [facility] [address] [place], [address] Hemoglobin (Bld) [Mass/Vol] 13.0 g/dL 13.0-16.5 [facility] Comment on above: Order Comment: 210 Performed By: #### L 100.0100, L500.2500, L501.9520, L501.5200, L506.1001, L500.4100, L501.1400 #### [facility] [address] [place], [address] MCH (RBC) [Entitic mass] 28.8 pg 27.0-32.0 [facility] Comment on above: Order Comment: 210 Performed By: #### L 100.0100, L500.2500, L501.9520, L501.5200, L506.1001, L500.4100, L501.1400 #### [facility] [address] [place], [address] MCHC (RBC) [Mass/Vol] 31.6 g/dL Low 32-36 [facility] Comment on above: Order Comment: 210 Performed By: #### L 100.0100, L500.2500, L501.9520, L501.5200, L506.1001, L500.4100, L501.1400 #### [facility] [address] [place], [address] MCV (RBC) [Entitic vol] 91.2 fL 80-94 [facility] Comment on above: Order Comment: 210 Performed By: #### L 100.0100, L500.2500, L501.9520, L501.5200, L506.1001, L500.4100, L501.1400 #### [facility] [address] [place], [address] Monocytes/100 WBC (Bld) 11.0 % High 0-10 [facility] Comment on above: Order Comment: 210 Performed By: #### L 100.0100, L500.2500, L501.9520, L501.5200, L506.1001, L500.4100, L501.1400 #### [facility] [address] [place], [address] Neutrophils/100 WBC (Bld) 61.9 % 47-70 [facility] Comment on above: Order Comment: 210 Performed By: #### L 100.0100, L500.2500, L501.9520, L501.5200, L506.1001, L500.4100, L501.1400 #### [facility] [address] [place], [address] Platelet mean volume (Bld) [Entitic vol] 9.6 fL 6.2-12.0 [facility] Comment on above: Order Comment: 210 Performed By: #### L 100.0100, L500.2500, L501.9520, L501.5200, L506.1001, L500.4100, L501.1400 #### [facility] [address] [place], [address] Platelets (Bld) [#/Vol] 154 10*3/uL 150-450 [facility] Comment on above: Order Comment: 210 Performed By: #### L 100.0100, L500.2500, L501.9520, L501.5200, L506.1001, L500.4100, L501.1400 #### [facility] [address] [place], [address] RBC (Bld) [#/Vol] 4.52 10*6/uL Low 4.6-6.2 [facility] Comment on above: Order Comment: 210 Performed By: #### L 100.0100, L500.2500, L501.9520, L501.5200, L506.1001, L500.4100, L501.1400 #### [facility] [address] [place], [address] WBC (Bld) [#/Vol] 4.5 10*3/uL 4.4-11.0 [facility] Comment on above: Order Comment: 210 Performed By: #### L 100.0100, L500.2500, L501.9520, L501.5200, L506.1001, L500.4100, L501.1400 #### [facility] [address] [place], [address] Calculated very low density lipoprotein (VLDL) cholesterol measurementOrdered By: Dolly Marino on 10-28-2024 Calculated very low density lipoprotein (VLDL) cholesterol measurement 26 mg/dL -40 [facility] Erythrocyte distribution wid th standard deviationOrdered By: Dolly Marino on 10-28-2024 Erythrocyte distribution width (RBC) [Ratio] 53.1 fl High 35.1-43.9 [facility] Immature granulocytes/100 WB C Auto (Bld)Ordered By: Dolly Marino on 10-28-2024 Immature granulocytes/100 WBC (Bld) 0.400 % 0.0-0.9 [facility] Comment on above: IG% - Immature Granu locytes (promyelocytes, myelocytes and metamyelocytes) > 1% indicates that a LEFT SHIFT is Present. Lipid Profileon 10-28-2024 CHOL:HDL 4.07 Normal [facility] Comment on above: Order Comment: 210 Performed By: #### L 100.0500, L500.4050 #### [facility] [address] [place], [address] Cholesterol in VLDL [Mass/Vol] 26 mg/dL Normal - [facility] Comment on above: Order Comment: 210 Performed By: #### L 100.0500, L500.4050 #### [facility] [address] [place], [address] Lipid ProfileOrdered By: Sahara Marino on 10-28-2024 Cholesterol [Mass/Vol] 95 mg/dL <201 [facility] Comment on above: Order Comment: 210 Result Comment: Chol esterol level, Desirable <200 mg/dL Borderline high cholesterol 200-239 mg/dL High cholesterol >=240 mg/dL Recommendations of the NCEP Adult Treatment Panel for the following risk-cutoff thresholds for the [place] population. Performed By: #### L 100.0500, L500.4050 #### [facility] [address] [place], [address] Cholesterol level, D esirable <200 mg/dLBorderline high cholesterol 200-239 mg/dLHigh cholesterol >=240 mg/dLRecommendations of the NCEP Adult Treatment Panel for the following risk-cutoff thresholds for the [place] population. Cholesterol in HDL [Mass/Vol] 23 mg/dL Low >40 [facility] Comment on above: Order Comment: 210 Result Comment: Fern onal Cholesterol Education Program (NCEP) guidelines: <40 mg/dL: Low HDL-cholesterol (major risk factor for CHD) >= 60 mg/dL: High HDL-cholesterol (negative risk factor for CHD) HDL-cholesterol is affected by a number of factors, e.g. smoking, exercise, hormones, sex and age. Performed By: #### L 100.0500, L500.4050 #### [facility] [address] [facility] [id number] National Cholesterol Education Program (NCEP) guidelines:<40 mg/dL: Low HDL-cholesterol (major risk factor for CHD)>= 60 mg/dL: High HDL-cholesterol (negative risk factor for CHD)HDL-cholesterol is affected by a number of factors, e.g. smoking, exercise, hormones, sex and age. Cholesterol in LDL [Mass/Vol] 46 mg/dL [facility] Comment on above: Order Comment: 210 Result Comment: Bord glrhsi=123-169 mg/dL Higher Atxu=373 mg/dL or greater Performed By: #### L 100.0500, L500.4050 #### [facility] [address] [place], [address] Bkhofaepbg=591-624 m g/dL & Higher Csgx=008 mg/dL or greater Triglyceride [Mass/Vol] 129 mg/dL <199 [facility] Comment on above: Order Comment: 210 Result Comment: The drugs N-Acetylcysteine and Metamizole may falsely depress this assay. Normal range: <150 mg/dL Borderline High: 150-199 mg/dL High: 200-499 mg/dL Very High: >500 mg/dL Performed By: #### L 100.0500, L500.4050 #### [facility] [address] [place], [address] The drugs N-Acetylcy steine and Metamizole may falsely depress this assay. Normal range: <150 mg/dLBorderline High: 150-199 mg/dLHigh: 200-499 mg/dLVery High: >500 mg/dL Magnesiumon 10-28-2024 Magnesium [Mass/Vol] 2.2 mg/dL Normal 1.5-2.2 [facility] Comment on above: Order Comment: 210 Performed By: #### L 100.0500, L500.4050 #### [facility] [address] [place], [address] Magnesium measurement (mass/ volume)Ordered By: Dolly Marino on 10-28-2024 Magnesium (Unsp spec) [Mass/Vol] 2.2 mg/dL 1.5-2.2 [facility] Nucleated red blood cell per centageOrdered By: Dolly Marino on 10-28-2024 Nucleated RBC/100 WBC (Bld) [Ratio] 0 % 0-5 [facility] Potassium measurement (mass/ volume)Ordered By: Dolly Marino on 10-28-2024 Potassium (Unsp spec) [Mass/Vol] 4.1 mmol/L 3.3-5.1 [facility] Screening total cholesterol/ high density lipoprotein (HDL) cholesterol ratioOrdered By: Dolly Marino on 10-28-2024 Cholesterol.total/Chio sterol in HDL [Mass ratio] 4.07 {ratio} [facility] Serum or plasma uric acid me asurement (mass/volume)Ordered By: Dolly Marino on 10-28-2024 Urate [Mass/Vol] 5.8 mg/dL 3.5-7.2 [facility] Comment on above: The drugs N-Acetylcy steine and Metamizole may falsely depress this assay. TSH DL <= 0.005 mIU/L QnOrde red By: Dolly Marino on 10-28-2024 TSH Qn 3.370 uIU/mL 0.300-4.200 [facility] Thyroid Stim Hormone (TSH)on 10-28-2024 TSH 3.370 uIU/mL Normal 0.300-4.200 [facility] Comment on above: Order Comment: 210 Performed By: #### L 100.0500, L500.4050 #### [facility] [address] [place], [address] Uric Acidon 10-28-2024 URIC 5.8 mg/dL Normal 3.5-7.2 [facility] Comment on above: Order Comment: 210 Result Comment: The drugs N-Acetylcysteine and Metamizole may falsely depress this assay. Performed By: #### L 100.0500, L500.4050 #### [facility] [address] [place], [address] Vitamin D,25 Hydroxyon 10-28 Vitamin D 25-OH < 6.0 Low 30-100 [facility] Comment on above: Order Comment: 210 Result Comment: Colleen min D Status Deficiency: <20 ng/mL (50nmol/L) Insufficiency: 20-30 ng/mL (50-75 nmol/L) Sufficiency: 30-100 ng/mL (75-250 nmol/L) Toxicity: >100 ng/mL (>250 nmol/L) Performed By: #### L 100.0500, L500.4050 #### [facility] [address] [place], [place], [id number] Anion gap in Serum or Plasma Ordered By: Dolly Marino on 10-24-2024 Anion gap [Moles/Vol] 9 mmol/L 5-15 [facility] BUN/creatinine ratioOrdered By: Dolly Marino on 10-24-2024 Urea nitrogen/Creatinine [Mass ratio] 14.6 mg/mg 10-20 [facility] Bilirubin, totalOrdered By: Dollytheresa Marino on 10-24-2024 Bilirubin [Mass/Vol] 0.31 mg/dL 0.00-1.30 [facility] CBC-Complete Blood Cnt No Di ffon 10-24-2024 Erythrocyte distribution width (RBC) [Ratio] 15.6 % High 11.6-14.6 [facility] Comment on above: Performed By: #### L 100.0500, L500.4050 #### [facility] [address] [place], [address] Hematocrit (Bld) [Volume fraction] 40.1 % Normal 40-54 [facility] Comment on above: Performed By: #### L 100.0500, L500.4050 #### [facility] [address] [place], [address] Hemoglobin (Bld) [Mass/Vol] 12.7 g/dL Low 13.0-16.5 [facility] Comment on above: Performed By: #### L 100.0500, L500.4050 #### [facility] [address] [place], [address] MCH (RBC) [Entitic mass] 28.7 pg Normal 27.0-32.0 [facility] Comment on above: Performed By: #### L 100.0500, L500.4050 #### [facility] [address] [place], [address] MCHC (RBC) [Mass/Vol] 31.7 g/dL Low 32-36 [facility] Comment on above: Performed By: #### L 100.0500, L500.4050 #### [facility] [address] [place], [address] MCV (RBC) [Entitic vol] 90.7 fL Normal 80-94 [facility] Comment on above: Performed By: #### L 100.0500, L500.4050 #### [facility] [address] [place], [address] Platelet mean volume (Bld) [Entitic vol] 9.3 fL Normal 6.2-12.0 [facility] Comment on above: Performed By: #### L 100.0500, L500.4050 #### [facility] [address] [place], [address] Platelets (Bld) [#/Vol] 155 10*3/uL Normal 150-450 [facility] Comment on above: Performed By: #### L 100.0500, L500.4050 #### [facility] [address] [place], [address] RBC (Bld) [#/Vol] 4.42 10*6/uL Low 4.6-6.2 [facility] Comment on above: Performed By: #### L 100.0500, L500.4050 #### [facility] [address] [place], [address] RDW SD 51.8 fl High 35.1-43.9 [facility] Comment on above: Performed By: #### L 100.0500, L500.4050 #### [facility] [address] [place], [address] WBC (Bld) [#/Vol] 4.6 10*3/uL Normal 4.4-11.0 [facility] Comment on above: Performed By: #### L 100.0500, L500.4050 #### [facility] [address] [place], [address] Carbon dioxide, total [Moles /volume] in Central venous bloodOrdered By: Dolly Marino on 10-24-2024 CO2 [Moles/Vol] 29.2 mmol/L 21.0-32.0 [facility] Chloride assayOrdered By: Darrin Marino on 10-24-2024 Chloride [Moles/Vol] 99 mmol/L 98-108 [facility] Comprehensive Metabolic Prof ilon 10-24-2024 Albumin [Mass/Vol] 3.4 g/dL Low 3.5-5.0 [facility] Comment on above: Performed By: #### L 100.0500, L500.4050 #### [facility] [address] [place], [address] Albumin/Globulin [Mass ratio] 1.0 {ratio} Normal 0.9-2.4 [facility] Comment on above: Performed By: #### L 100.0500, L500.4050 #### [facility] [address] [place], [address] ALK PHOS 76 U/L Normal 40-129 [facility] Comment on above: Performed By: #### L 100.0500, L500.4050 #### [facility] [address] [place], [address] ALT [Catalytic activity/Vol] 6 U/L Normal <=46 [facility] Comment on above: Performed By: #### L 100.0500, L500.4050 #### [facility] [address] [place], [address] AST [Catalytic activity/Vol] 18 U/L Normal <=37 [facility] Comment on above: Performed By: #### L 100.0500, L500.4050 #### [facility] [address] [place], [address] Bilirubin [Mass/Vol] 0.31 mg/dL Normal 0.00-1.30 [facility] Comment on above: Performed By: #### L 100.0500, L500.4050 #### [facility] [address] [place], [address] BUN/CRE 14.6 RATIO Normal 10-20 [facility] Comment on above: Performed By: #### L 100.0500, L500.4050 #### [facility] [address] [place], [address] Calcium [Mass/Vol] 9.0 mg/dL Normal 7.6-11.0 [facility] Comment on above: Performed By: #### L 100.0500, L500.4050 #### [facility] [address] [place], [address] Chloride [Moles/Vol] 99 mmol/L Normal 98-108 [facility] Comment on above: Performed By: #### L 100.0500, L500.4050 #### [facility] [address] [place], [address] CO2 [Moles/Vol] 29.2 mmol/L Normal 21.0-32.0 [facility] Comment on above: Performed By: #### L 100.0500, L500.4050 #### [facility] [address] [place], [address] Creatinine [Mass/Vol] 0.65 mg/dL Low 0.70-1.20 [facility] Comment on above: Performed By: #### L 100.0500, L500.4050 #### [facility] [address] [place], [address] GAP 9 Normal 5-15 [facility] Comment on above: Performed By: #### L 100.0500, L500.4050 #### [facility] [address] [place], [address] GFR/1.73 sq M.predicted among non-blacks MDRD (S/P/Bld) [Vol rate/Area] 113 mL/min/{1.73_m2} Normal >60 [facility] Comment on above: Result Comment: mL/m in/1.73m2 CKD-EPI Creatinine Equation (2020) Performed By: #### L 100.0500, L500.4050 #### [facility] [address] [place], [address] Globulin (S) [Mass/Vol] 3.2 g/dL Normal 2.2-4.2 [facility] Comment on above: Performed By: #### L 100.0500, L500.4050 #### [facility] [address] [place], [address] Glucose [Mass/Vol] 113 mg/dL High 70-99 [facility] Comment on above: Performed By: #### L 100.0500, L500.4050 #### [facility] [address] [place], [address] Potassium [Moles/Vol] 3.8 mmol/L Normal 3.3-5.1 [facility] Comment on above: Performed By: #### L 100.0500, L500.4050 #### [facility] [address] [place], [address] Sodium [Moles/Vol] 137 mmol/L Normal 133-145 [facility] Comment on above: Performed By: #### L 100.0500, L500.4050 #### [facility] [address] [place], [address] T PROT 6.6 g/dL Normal 5.9-8.4 [facility] Comment on above: Performed By: #### L 100.0500, L500.4050 #### [facility] [address] [place], [address] Urea nitrogen [Mass/Vol] 10 mg/dL Normal 4-19 [facility] Comment on above: Performed By: #### L 100.0500, L500.4050 #### [facility] [address] [place], [address] Erythrocyte distribution wid th ratioOrdered By: Dolly Marino on 10-24-2024 Erythrocyte distribution width (RBC) [Ratio] 15.6 % High 11.6-14.6 [facility] Erythrocyte distribution wid th standard deviationOrdered By: Dolly Marino on 10-24-2024 Erythrocyte distribution width (RBC) [Ratio] 51.8 fl High 35.1-43.9 [facility] Glomerular filtration rate ( GFR) estimation/1.73 sq m using serum, plasma, or whole bOrdered By: Dolly Marino on 10-24-2024 GFR/1.73 sq M.predicted among non-blacks MDRD (S/P/Bld) [Vol rate/Area] 113 mL/min/{1.73_m2} >60 [facility] Comment on above: mL/min/1.73m2 CKD-EP I Creatinine Equation (2020) Hematocrit Auto (Bld) [Volum e fraction]Ordered By: Dolly Marino on 10-24-2024 Hematocrit (Bld) [Volume fraction] 40.1 % 40-54 [facility] Hemoglobin measurementOrdere d By: Dolly Marino on 10-24-2024 Hemoglobin (Bld) [Mass/Vol] 12.7 g/dL Low 13.0-16.5 [facility] - Chemistry and C hemistry - challengeOrdered By: Dolly Marino on 10-24-2024 AST [Catalytic activity/Vol] 18 U/L <38 [facility] MCV (mean corpuscular volume ) determinationOrdered By: Dolly Marino on 10-24-2024 MCV (RBC) [Entitic vol] 90.7 fL 80-94 [facility] Mean corpuscular hemoglobin (MCH) determinationOrdered By: Dolly Marino on 10-24-2024 MCH (RBC) [Entitic mass] 28.7 pg 27.0-32.0 [facility] Mean corpuscular hemoglobin concentration (MCHC) determinationOrdered By: Dolly Marino on 10-24-2024 MCHC (RBC) [Mass/Vol] 31.7 g/dL Low 32-36 [facility] Mean platelet volume determi nationOrdered By: Dolly Marino on 10-24-2024 Platelet mean volume (Bld) [Entitic vol] 9.3 fL 6.2-12.0 [facility] Platelet countOrdered By: Darrin Marino on 10-24-2024 Platelets (Bld) [#/Vol] 155 10*3/uL 150-450 [facility] Potassium measurement (mass/ volume)Ordered By: Dolly Marino on 10-24-2024 Potassium (Unsp spec) [Mass/Vol] 3.8 mmol/L 3.3-5.1 [facility] RBC Auto (Bld) [#/Vol]Ordere d By: Dolly Marino on 10-24-2024 RBC (Bld) [#/Vol] 4.42 10*6/uL Low 4.6-6.2 [facility] Serum creatinine measurement (mass/volume)Ordered By: Dolly Marino on 10-24-2024 Creatinine [Mass/Vol] 0.65 mg/dL Low 0.70-1.20 [facility] Serum globulin measurementOr dered By: Dolly Marino on 10-24-2024 Globulin (S) [Mass/Vol] 3.2 g/dL 2.2-4.2 [facility] Serum glucose measurement (m ass/volume)Ordered By: Dolly Marino on 10-24-2024 Glucose [Mass/Vol] 113 mg/dL High 70-99 [facility] Serum or plasma alanine linda otransferase (ALT) measurementOrdered By: Dolly Marino on 10-24-2024 ALT [Catalytic activity/Vol] 6 U/L <47 [facility] Serum or plasma albumin scott urement (mass/volume)Ordered By: Dolly Marino on 10-24-2024 Albumin [Mass/Vol] 3.4 g/dL Low 3.5-5.0 [facility] Serum or plasma albumin/glob ulin mass ratioOrdered By: Dolly Marino on 10-24-2024 Albumin/Globulin [Mass ratio] 1.0 {ratio} 0.9-2.4 [facility] Serum or plasma alkaline kamaljit sphatase measurementOrdered By: Dolly Marino on 10-24-2024 ALP [Catalytic activity/Vol] 76 U/L 40-129 [facility] Serum or plasma calcium scott urement (mass/volume)Ordered By: Dolly Marino on 10-24-2024 Calcium [Mass/Vol] 9.0 mg/dL 7.6-11.0 [facility] Serum or plasma urea nitroge n measurement (mass/volume)Ordered By: Dolly Marino on 10-24-2024 Urea nitrogen [Mass/Vol] 10 mg/dL 4-19 [facility] Sodium levelOrdered By: Missael Marino on 10-24-2024 Sodium [Moles/Vol] 137 mmol/L 133-145 [facility] Total proteinOrdered By: Sahara Marino on 10-24-2024 Protein [Mass/Vol] 6.6 g/dL 5.9-8.4 [facility] White blood cell (WBC) count Ordered By: Dolly Marino on 10-24-2024 WBC (Bld) [#/Vol] 4.6 10*3/uL 4.4-11.0 [facility] LABORATORYOrdered By: Samanta Morin on 10-23-2024 Blood Glucose Testing Reason Routine (10/23/24 8:27 PM) [facility] Glucose [Mass/Vol] 168 mg/dL High 70 - 110 mg/dL [facility] LABORATORYOrdered By: Sarah Carrillo on 10-23-2024 Blood Glucose Testing Reason Routine (10/23/24 5:31 PM) [facility] Glucose [Mass/Vol] 146 mg/dL High 70 - 110 mg/dL [facility] LABORATORYOrdered By: Gianna Mendez on 10-23-2024 Blood Glucose Testing Reason Routine (10/23/24 12:15 PM) [facility] Glucose [Mass/Vol] 154 mg/dL High 70 - 110 mg/dL [facility] Comment on above: Result Comment: noti fied nurse SHAHEEN Staples .Auto Diffon 10-20-2024 Basophil, Absolute 0.0 10 3/mcL Normal 0.0-0.3 [facility] Comment on above: Performed By: #### A ERIC, CBC, BMP, ADIFF, GFR #### [facility] [address] [place] [address] Basophils/100 WBC (Bld) 0.6 % Normal 0.0-2.5 [facility] Comment on above: Performed By: #### A ERIC, CBC, BMP, ADIFF, GFR #### [address] [address] Eosinophil, Absolute 0.1 10 3/mcL Normal 0.0-0.7 [facility] Comment on above: Performed By: #### A ERIC, CBC, BMP, ADIFF, GFR #### [address] [address] Eosinophils/100 WBC (Bld) 1.5 % Normal 0.0-6.0 [facility] Comment on above: Performed By: #### A ERIC, CBC, BMP, ADIFF, GFR #### [address] [address] Lymphocyte, Absolute 1.0 10 3/mcL Normal 0.9-4.3 [facility] Comment on above: Performed By: #### A ERIC, CBC, BMP, ADIFF, GFR #### [address] [address] Lymphocytes/100 WBC (Bld) 21.2 % Normal 20.0-40.0 [facility] Comment on above: Performed By: #### A ERIC, CBC, BMP, ADIFF, GFR #### [address] [address] Monocyte, Absolute 0.6 10 3/mcL Normal 0.1-1.4 [facility] Comment on above: Performed By: #### A ERIC, CBC, BMP, ADIFF, GFR #### [address] [address] Monocytes/100 WBC (Bld) 11.6 % Normal 2.0-13.0 [facility] Comment on above: Performed By: #### A ERIC, CBC, BMP, ADIFF, GFR #### [address] [address] Neutrophils/100 WBC (Bld) 65.1 % Normal 50.0-75.0 [facility] Comment on above: Performed By: #### A ERIC, CBC, BMP, ADIFF, GFR #### [address] [address] .GFRon 05-25-2025 Estimated Glomerular Filtration Rate 108 ml/min/1.73sqm Normal [facility] Comment on above: Result Comment: Stages [...] A ERIC, CBC, BMP, ADIFF, GFR #### [place] [id number] .NEUABSon 10-20-2024 Neutrophil, Absolute 3.2 10 3/mcL Normal 2.3-8.1 [facility] Comment on above: Performed By: #### A ERIC, CBC, BMP, ADIFF, GFR #### [place] [id number] [facility] 10-20-2024 BUN/Creatinine Ratio 10.8 ratio Normal 10.0-22.0 [facility] Comment on above: Performed By: #### A ERIC, CBC, BMP, ADIFF, GFR #### [address] [address] Calcium [Mass/Vol] 8.7 mg/dL Normal 8.7-10.4 [facility] Comment on above: Performed By: #### A ERIC, CBC, BMP, ADIFF, GFR #### [address] [address] Chloride [Moles/Vol] 97 mmol/L Low 98-110 [facility] Comment on above: Performed By: #### A ERIC, CBC, BMP, ADIFF, GFR #### [address] [address] CO2 [Moles/Vol] 37 mmol/L High 22-32 [facility] Comment on above: Performed By: #### A ERIC, CBC, BMP, ADIFF, GFR #### [address] [address] Creatinine [Mass/Vol] 0.74 mg/dL Normal 0.60-1.40 [facility] Comment on above: Result Comment: Test ing performed on frestyl analyzer using enzymatic creatinine methodology. Performed By: #### A ERIC, CBC, BMP, ADIFF, GFR #### [address] [address] Electrolyte Balance 4.0 mEq/L Normal 4.0-15.0 [facility] Comment on above: Performed By: #### A ERIC, CBC, BMP, ADIFF, GFR #### [address] [address] Glucose [Mass/Vol] 116 mg/dL High 70-110 [facility] Comment on above: Performed By: #### A ERIC, CBC, BMP, ADIFF, GFR #### [address] [address] Potassium [Moles/Vol] 3.5 mmol/L Normal 3.5-5.0 [facility] Comment on above: Performed By: #### A ERIC, CBC, BMP, ADIFF, GFR #### [address] [address] Sodium [Moles/Vol] 138 mmol/L Normal 136-145 [facility] Comment on above: Performed By: #### A ERIC, CBC, BMP, ADIFF, GFR #### [address] [address] Urea nitrogen [Mass/Vol] 8.0 mg/dL Normal 8.0-22.0 [facility] Comment on above: Performed By: #### A ERIC, CBC, BMP, ADIFF, GFR #### [address] [address] CBCon 10-20-2024 Erythrocyte distribution width (RBC) [Ratio] 16.8 % High 11.5-15.5 [facility] Comment on above: Performed By: #### A ERIC, CBC, BMP, ADIFF, GFR #### [place] [address] Hematocrit (Bld) [Volume fraction] 41.3 % Normal 40.0-52.0 [facility] Comment on above: Performed By: #### A ERIC, CBC, BMP, ADIFF, GFR #### [place] [address] Hgb 13.4 G/dL Normal 13.0-17.5 [facility] Comment on above: Performed By: #### A ERIC, CBC, BMP, ADIFF, GFR #### [place] [address] MCH (RBC) [Entitic mass] 28.7 pg Normal 27.0-33.0 [facility] Comment on above: Performed By: #### A ERIC, CBC, BMP, ADIFF, GFR #### [place] [address] MCHC 32.4 G/dL Normal 32.0-36.0 [facility] Comment on above: Performed By: #### A ERIC, CBC, BMP, ADIFF, GFR #### [place] [address] MCV (RBC) [Entitic vol] 88.5 fL Normal 81.0-100.0 [facility] Comment on above: Performed By: #### A ERIC, CBC, BMP, ADIFF, GFR #### [place] [address] Platelet 175 10 3/mcL Normal 150-450 [facility] Comment on above: Performed By: #### A ERIC, CBC, BMP, ADIFF, GFR #### [place] [address] Platelet mean volume (Bld) [Entitic vol] 7.3 fL Normal 6.4-10.5 [facility] Comment on above: Performed By: #### A ERIC, CBC, BMP, ADIFF, GFR #### [place] [address] RBC 4.67 10 6/mcL Normal 4.50-6.00 [facility] Comment on above: Performed By: #### A ERIC, CBC, BMP, ADIFF, GFR #### [facility] [address] [place] [address] WBC 4.8 10 3/mcL Normal 4.5-10.8 [facility] Comment on above: Performed By: #### A ERIC, CBC, BMP, ADIFF, GFR #### [facility] [address] [place] [address] LABORATORYOrdered By: SYSTEM SYSTEM on 10-20-2024 Basophils [...] above: Interpretive Data: T esting performed on frestyl analyzer using enzymatic creatinine methodology. Electrolyte Balance [...] Basophil, Absolute 0.0 10 3/mcL Normal 0.0-0.3 [facility] Comment on above: Performed By: #### G FR, CANDELARIA RANDOLPH, CMP #### [address] [address] Basophils/100 WBC (Bld) 0.7 % Normal 0.0-2.5 [facility] Comment on above: Performed By: #### G FR, ABSMEGHAN HUGGINSGEL, CMP #### [address] [address] Eosinophil, Absolute 0.1 10 3/mcL Normal 0.0-0.7 [facility] Comment on above: Performed By: #### G FR, ABSJOSELUIS ABOGEL, CMP #### [address] [address] Eosinophils/100 WBC (Bld) 1.9 % Normal 0.0-6.0 [facility] Comment on above: Performed By: #### G FR, ABSJOSELUIS, ABOGEL, CMP #### [address] [address] Lymphocyte, Absolute 1.0 10 3/mcL Normal 0.9-4.3 [facility] Comment on above: Performed By: #### G FR, ABSGEL, ABOGEL, CMP #### [address] [address] Lymphocytes/100 WBC (Bld) 18.3 % Low 20.0-40.0 [facility] Comment on above: Performed By: #### G FR, ABSGEL, ABOGEL, CMP #### [address] [address] Monocyte, Absolute 0.5 10 3/mcL Normal 0.1-1.4 [facility] Comment on above: Performed By: #### G TOMASA DEAN ABOGEL CMP #### [address] [address] Monocytes/100 WBC (Bld) 9.1 % Normal 2.0-13.0 [facility] Comment on above: Performed By: #### TOMASA DIETRICH ABOGEL, CMP #### [address] [address] Neutrophils/100 WBC (Bld) 70.0 % Normal 50.0-75.0 [facility] Comment on above: Performed By: #### TOMASA DIETRICH ABOGEL, CMP #### [address] [address] .GFRon 10-19-2024 Estimated Glomerular Filtration Rate 109 ml/min/1.73sqm Normal [facility] Comment on above: Result Comment: Stages [...] #### G TOMASA DEAN ABOGEL, CMP #### [address] [address] .NEUABSon 10-19-2024 Neutrophil, Absolute 3.8 10 3/mcL Normal 2.3-8.1 [facility] Comment on above: Performed By: #### G TOMASA DEAN ABOGEL, CMP #### [address] [address] BMPon 10-19-2024 BUN/Creatinine Ratio 11.1 ratio Normal 10.0-22.0 [facility] Comment on above: Performed By: #### TOAMSA DIETRICH ABOGEL, CMP #### [address] [address] Calcium [Mass/Vol] 8.7 mg/dL Normal 8.7-10.4 [facility] Comment on above: Performed By: #### TOMASA DIETRICH ABOGEL, CMP #### [address] [address] Chloride [Moles/Vol] 100 mmol/L Normal 98-110 [facility] Comment on above: Performed By: #### TOMASA DIETRICH ABOGEL, CMP #### [address] [address] CO2 [Moles/Vol] 33 mmol/L High 22-32 [facility] Comment on above: Performed By: #### TOMASA DIETRICH ABOGEL, CMP #### [address] [address] Creatinine [Mass/Vol] 0.72 mg/dL Normal 0.60-1.40 [facility] Comment on above: Result Comment: Test ing performed on frestyl analyzer using enzymatic creatinine methodology. Performed By: #### TOMASA DIETRICH ABOGEL, CMP #### [address] [address] Electrolyte Balance 4.0 mEq/L Normal 4.0-15.0 [facility] Comment on above: Performed By: #### TOMASA DIETRICH ABOGEL, CMP #### [address] [address] Glucose [Mass/Vol] 181 mg/dL High 70-110 [facility] Comment on above: Performed By: #### TOMASA DIETRICH ABOGEL, CMP #### [address] [address] Potassium [Moles/Vol] 3.5 mmol/L Normal 3.5-5.0 [facility] Comment on above: Performed By: #### TOMASA DIETRICH ABOGEL, CMP #### [address] [address] Sodium [Moles/Vol] 137 mmol/L Normal 136-145 [facility] Comment on above: Performed By: #### TOMASA DIETRICH ABOGEL, CMP #### [place] [address] Urea nitrogen [Mass/Vol] 8.0 mg/dL Normal 8.0-22.0 [facility] Comment on above: Performed By: #### TOMASA DIETRICH ABOGEL, CMP #### [place] [address] CBCon 10-19-2024 Erythrocyte distribution width (RBC) [Ratio] 17.3 % High 11.5-15.5 [facility] Comment on above: Performed By: #### TOMASA DIETRICH ABOGEL, CMP #### [place] [address] Hematocrit (Bld) [Volume fraction] 40.5 % Normal 40.0-52.0 [facility] Comment on above: Performed By: #### TOMASA DIETRICH ABOGEL, CMP #### [place] [address] Hgb 13.0 G/dL Normal 13.0-17.5 [facility] Comment on above: Performed By: #### TOMASA DIETRICH ABOGEL, CMP #### [place] [address] MCH (RBC) [Entitic mass] 28.6 pg Normal 27.0-33.0 [facility] Comment on above: Performed By: #### G TOMASA DEAN ABOGEL, CMP #### [place] [address] MCHC 32.1 G/dL Normal 32.0-36.0 [facility] Comment on above: Performed By: #### G TOMASA DEAN ABOGEL, CMP #### [place] [address] MCV (RBC) [Entitic vol] 89.2 fL Normal 81.0-100.0 [facility] Comment on above: Performed By: #### G TOMASA DEAN ABOGEL, CMP #### [address] [address] Platelet 171 10 3/mcL Normal 150-450 [facility] Comment on above: Performed By: #### TOMASA DIETRICH ABOGEL, CMP #### [address] [address] Platelet mean volume (Bld) [Entitic vol] 7.6 fL Normal 6.4-10.5 [facility] Comment on above: Performed By: #### TOMASA DIETRICH ABOGEL, CMP #### [place] [address] RBC 4.54 10 6/mcL Normal 4.50-6.00 [facility] Comment on above: Performed By: #### TOMASA DIETRICH ABOGEL, CMP #### [place] [id number] WBC 5.4 10 3/mcL Normal 4.5-10.8 [facility] Comment on above: Performed By: #### TOMASA DIETRICH ABOGEL, CMP #### [place] [address] LABORATORYOrdered By: SYSTEM SYSTEM on 10-19-2024 Basophils [...] above: Interpretive Data: T esting performed on frestyl analyzer using enzymatic creatinine methodology. Electrolyte Balance [...] Basophil, Absolute 0.0 10 3/mcL Normal 0.0-0.3 [facility] Comment on above: Performed By: #### A ERIC, CBC, BMP, ADIFF, GFR #### [address] [address] Basophils/100 WBC (Bld) 0.6 % Normal 0.0-2.5 [facility] Comment on above: Performed By: #### A ERIC, CBC, BMP, ADIFF, GFR #### [address] [address] Eosinophil, Absolute 0.1 10 3/mcL Normal 0.0-0.7 [facility] Comment on above: Performed By: #### A ERIC, CBC, BMP, ADIFF, GFR #### [address] [address] Eosinophils/100 WBC (Bld) 1.7 % Normal 0.0-6.0 [facility] Comment on above: Performed By: #### A ERIC, CBC, BMP, ADIFF, GFR #### [address] [address] Lymphocyte, Absolute 1.2 10 3/mcL Normal 0.9-4.3 [facility] Comment on above: Performed By: #### A ERIC, CBC, BMP, ADIFF, GFR #### [address] [address] Lymphocytes/100 WBC (Bld) 19.0 % Low 20.0-40.0 [facility] Comment on above: Performed By: #### A ERIC, CBC, BMP, ADIFF, GFR #### [address] [address] Monocyte, Absolute 0.9 10 3/mcL Normal 0.1-1.4 [facility] Comment on above: Performed By: #### A ERIC, CBC, BMP, ADIFF, GFR #### [address] [address] Monocytes/100 WBC (Bld) 14.1 % High 2.0-13.0 [facility] Comment on above: Performed By: #### A ERIC, CBC, BMP, ADIFF, GFR #### [address] [address] Neutrophils/100 WBC (Bld) 64.6 % Normal 50.0-75.0 [facility] Comment on above: Performed By: #### A ERIC, CBC, BMP, ADIFF, GFR #### [address] [address] Basophil, Absolute 0.0 10 3/mcL Normal 0.0-0.3 [facility] Comment on above: Performed By: #### G FR, ABSGEL, ABOGEL, CMP #### [address] [address] Basophils/100 WBC (Bld) 0.4 % Normal 0.0-2.5 [facility] Comment on above: Performed By: #### G FR, ABSGEL, ABOGEL, CMP #### [address] [address] Eosinophil, Absolute 0.1 10 3/mcL Normal 0.0-0.7 [facility] Comment on above: Performed By: #### G FR, CANDELARIA RANDOLPH, CMP #### [address] [address] Eosinophils/100 WBC (Bld) 1.2 % Normal 0.0-6.0 [facility] Comment on above: Performed By: #### G FR, MEGHAN RANDOLPHGEL, CMP #### [address] [address] Lymphocyte, Absolute 0.7 10 3/mcL Low 0.9-4.3 [facility] Comment on above: Performed By: #### G FR, MEGHAN RANDOLPHGEL, CMP #### [address] [address] Lymphocytes/100 WBC (Bld) 16.1 % Low 20.0-40.0 [facility] Comment on above: Performed By: #### G FR, CANDELARIA RANDOLPH, CMP #### [address] [address] Monocyte, Absolute 0.5 10 3/mcL Normal 0.1-1.4 [facility] Comment on above: Performed By: #### G FR, MEGHAN RANDOLPHGEL, CMP #### [address] [address] Monocytes/100 WBC (Bld) 11.8 % Normal 2.0-13.0 [facility] Comment on above: Performed By: #### G FR, MEGHAN RANDOLPHGEL, CMP #### [address] [address] Neutrophils/100 WBC (Bld) 70.5 % Normal 50.0-75.0 [facility] Comment on above: Performed By: #### G FR, ABSJOSELUIS ABOGEL, CMP #### [address] [address] .GFRon 10-18-2024 Estimated Glomerular Filtration Rate 112 ml/min/1.73sqm [facility] Comment on above: Result Comment: [...] A ERIC, CBC, BMP, ADIFF, GFR #### [address] [address] Estimated Glomerular Filtration Rate 114 ml/min/1.73sqm Normal [facility] Comment on above: Result Comment: Stages [...] #### G FR, ABSGEL, ABOGEL, CMP #### [address] [address] .NEUABSon 10-18-2024 Neutrophil, Absolute 3.9 10 3/mcL Normal 2.3-8.1 [facility] Comment on above: Performed By: #### A ERIC, CBC, BMP, ADIFF, GFR #### [address] [address] Neutrophil, Absolute 3.3 10 3/mcL Normal 2.3-8.1 [facility] Comment on above: Performed By: #### G FR, ABSGEL, ABOGEL, CMP #### [address] [address] BMPon 10-18-2024 BUN/Creatinine Ratio 9.0 ratio Low 10.0-22.0 [facility] Comment on above: Performed By: #### A ERIC, CBC, BMP, ADIFF, GFR #### [address] [address] Calcium [Mass/Vol] 8.7 mg/dL Normal 8.7-10.4 [facility] Comment on above: Performed By: #### A ERIC, CBC, BMP, ADIFF, GFR #### [address] [address] Chloride [Moles/Vol] 99 mmol/L Normal 98-110 [facility] Comment on above: Performed By: #### A ERIC, CBC, BMP, ADIFF, GFR #### [address] [address] CO2 [Moles/Vol] 33 mmol/L High 22-32 [facility] Comment on above: Performed By: #### A ERIC, CBC, BMP, ADIFF, GFR #### [place] [id number] Creatinine [Mass/Vol] 0.67 mg/dL Normal 0.60-1.40 [facility] Comment on above: Result Comment: Test ing performed on frestyl analyzer using enzymatic creatinine methodology. Performed By: #### A ERIC, CBC, BMP, ADIFF, GFR #### [address] [address] Electrolyte Balance 5.0 mEq/L Normal 4.0-15.0 [facility] Comment on above: Performed By: #### A ERIC, CBC, BMP, ADIFF, GFR #### [address] [address] Glucose [Mass/Vol] 115 mg/dL High 70-110 [facility] Comment on above: Performed By: #### A ERIC, CBC, BMP, ADIFF, GFR #### [address] [address] Potassium [Moles/Vol] 3.4 mmol/L Low 3.5-5.0 [facility] Comment on above: Performed By: #### A ERIC, CBC, BMP, ADIFF, GFR #### [address] [address] Sodium [Moles/Vol] 137 mmol/L Normal 136-145 [facility] Comment on above: Performed By: #### A ERIC, CBC, BMP, ADIFF, GFR #### [address] [address] Urea nitrogen [Mass/Vol] 6.0 mg/dL Low 8.0-22.0 [facility] Comment on above: Performed By: #### A ERIC, CBC, BMP, ADIFF, GFR #### [address] [address] BUN/Creatinine Ratio Unable to Calculate Normal 10.0-2 2.0 [facility] Comment on above: Order Comment: Pleas e draw daily labs at 3 AM for 3 days Result Comment: Unab le to calculate this test result accurately. Results used to calculate this test are outside the reportable range. Performed By: #### G , CANDELARIA RANDOLPH, CMP #### [address] [address] Urea nitrogen [Mass/Vol] mg/dL Low 8.0-22.0 [facility] Comment on above: Order Comment: Pleas e draw daily labs at 3 AM for 3 days Performed By: #### G TOMASA DEAN ABOGEL, CMP #### [address] [address] Calcium [Mass/Vol] 9.2 mg/dL Normal 8.7-10.4 [facility] Comment on above: Order Comment: Pleas e draw daily labs at 3 AM for 3 days Performed By: #### G , ABSCANDELARIA HUGGINS, CMP #### [address] [address] Chloride [Moles/Vol] 101 mmol/L Normal 98-110 [facility] Comment on above: Order Comment: Pleas e draw daily labs at 3 AM for 3 days Performed By: #### G , CANDELARIA RANDOLPH, CMP #### [address] [address] CO2 [Moles/Vol] 33 mmol/L High 22-32 [facility] Comment on above: Order Comment: Pleas e draw daily labs at 3 AM for 3 days Performed By: #### G TOMASA DEAN ABOGEL, CMP #### [address] [address] Creatinine [Mass/Vol] 0.63 mg/dL Normal 0.60-1.40 [facility] Comment on above: Order Comment: Pleas e draw daily labs at 3 AM for 3 days Result Comment: Test ing performed on frestyl analyzer using enzymatic creatinine methodology. Performed By: #### G TOMASA DEAN ABOGEL, CMP #### [address] [address] Electrolyte Balance 5.0 mEq/L Normal 4.0-15.0 [facility] Comment on above: Order Comment: Pleas e draw daily labs at 3 AM for 3 days Performed By: #### G TOMASA DEAN ABOGEL, CMP #### [address] [address] Glucose [Mass/Vol] 110 mg/dL Normal 70-110 [facility] Comment on above: Order Comment: Pleas e draw daily labs at 3 AM for 3 days Performed By: #### G TOMASA DEAN ABOGEL, CMP #### [address] [address] Potassium [Moles/Vol] 3.6 mmol/L Normal 3.5-5.0 [facility] Comment on above: Order Comment: Pleas e draw daily labs at 3 AM for 3 days Performed By: #### G TOMASA DEAN ABOGEL, CMP #### [address] [address] Sodium [Moles/Vol] 139 mmol/L Normal 136-145 [facility] Comment on above: Order Comment: Pleas e draw daily labs at 3 AM for 3 days Performed By: #### G TOMASA DEAN ABOGEL, CMP #### [address] [address] CBCon 10-18-2024 Erythrocyte distribution width (RBC) [Ratio] 17.3 % High 11.5-15.5 [facility] Comment on above: Performed By: #### A ERIC, CBC, BMP, ADIFF, GFR #### [place] [address] Hematocrit (Bld) [Volume fraction] 41.4 % Normal 40.0-52.0 [facility] Comment on above: Performed By: #### A ERIC, CBC, BMP, ADIFF, GFR #### [place] [id number] Hgb 13.5 G/dL Normal 13.0-17.5 [facility] Comment on above: Performed By: #### A ERIC, CBC, BMP, ADIFF, GFR #### [address] [address] MCH (RBC) [Entitic mass] 28.9 pg Normal 27.0-33.0 [facility] Comment on above: Performed By: #### A ERIC, CBC, BMP, ADIFF, GFR #### [place] [address] MCHC 32.7 G/dL Normal 32.0-36.0 [facility] Comment on above: Performed By: #### A ERIC, CBC, BMP, ADIFF, GFR #### [place] [id number] MCV (RBC) [Entitic vol] 88.4 fL Normal 81.0-100.0 [facility] Comment on above: Performed By: #### A ERIC, CBC, BMP, ADIFF, GFR #### [place] [id number] Platelet 158 10 3/mcL Normal 150-450 [facility] Comment on above: Performed By: #### A ERIC, CBC, BMP, ADIFF, GFR #### [place] [address] Platelet mean volume (Bld) [Entitic vol] 7.9 fL Normal 6.4-10.5 [facility] Comment on above: Performed By: #### A ERIC, CBC, BMP, ADIFF, GFR #### [place] [id number] RBC 4.68 10 6/mcL Normal 4.50-6.00 [facility] Comment on above: Performed By: #### A ERIC, CBC, BMP, ADIFF, GFR #### [place] [address] WBC 6.1 10 3/mcL Normal 4.5-10.8 [facility] Comment on above: Performed By: #### A ERIC, CBC, BMP, ADIFF, GFR #### [place] [address] Erythrocyte distribution width (RBC) [Ratio] 16.9 % High 11.5-15.5 [facility] Comment on above: Order Comment: Colle ct blood every day at 3 AM for the next 3 days. Performed By: #### G FR, BMP, CBC, MG, ADIFF, ANEU #### [place] [address] Hematocrit (Bld) [Volume fraction] 41.4 % Normal 40.0-52.0 [facility] Comment on above: Order Comment: Colle ct blood every day at 3 AM for the next 3 days. Performed By: #### G FR, BMP, CBC, MG, ADIFF, ANEU #### [place] [address] Hgb 13.6 G/dL Normal 13.0-17.5 [facility] Comment on above: Order Comment: Colle ct blood every day at 3 AM for the next 3 days. Performed By: #### G FR, BMP, CBC, MG, ADIFF, ANEU #### [place] [address] MCH (RBC) [Entitic mass] 29.0 pg Normal 27.0-33.0 [facility] Comment on above: Order Comment: Colle ct blood every day at 3 AM for the next 3 days. Performed By: #### G FR, BMP, CBC, MG, ADIFF, ANEU #### [place] [address] MCHC 32.8 G/dL Normal 32.0-36.0 [facility] Comment on above: Order Comment: Colle ct blood every day at 3 AM for the next 3 days. Performed By: #### G FR, BMP, CBC, MG, ADIFF, ANEU #### [place] [address] MCV (RBC) [Entitic vol] 88.3 fL Normal 81.0-100.0 [facility] Comment on above: Order Comment: Colle ct blood every day at 3 AM for the next 3 days. Performed By: #### G FR, BMP, CBC, MG, ADIFF, ANEU #### [place] [address] Platelet 127 10 3/mcL Low 150-450 [facility] Comment on above: Order Comment: Colle ct blood every day at 3 AM for the next 3 days. Performed By: #### G FR, BMP, CBC, MG, ADIFF, ANEU #### [place] [address] Platelet mean volume (Bld) [Entitic vol] 7.7 fL Normal 6.4-10.5 [facility] Comment on above: Order Comment: Colle ct blood every day at 3 AM for the next 3 days. Performed By: #### G FR, BMP, CBC, MG, ADIFF, ANEU #### [place] [address] RBC 4.70 10 6/mcL Normal 4.50-6.00 [facility] Comment on above: Order Comment: Colle ct blood every day at 3 AM for the next 3 days. Performed By: #### G FR, BMP, CBC, MG, ADIFF, ANEU #### [place] [address] WBC 4.6 10 3/mcL Normal 4.5-10.8 [facility] Comment on above: Order Comment: Colle ct blood every day at 3 AM for the next 3 days. Performed By: #### G FR, BMP, CBC, MG, ADIFF, ANEU #### [place] [address] LABORATORYOrdered By: SYSTEM SYSTEM on 10-18-2024 Basophils [...] above: Interpretive Data: T esting performed on frestyl analyzer using enzymatic creatinine methodology. Electrolyte Balance [...] Basophil, Absolute 0.0 10 3/mcL Normal 0.0-0.3 [facility] Comment on above: Performed By: #### G , CANDELARIA RANDOLPH, CMP #### [address] [address] Basophils/100 WBC (Bld) 0.6 % Normal 0.0-2.5 [facility] Comment on above: Performed By: #### TOMASA DIETRICH ABOGEL, CMP #### [address] [address] Eosinophil, Absolute 0.1 10 3/mcL Normal 0.0-0.7 [facility] Comment on above: Performed By: #### TOMASA DIETRICH ABOGEL, CMP #### [address] [address] Eosinophils/100 WBC (Bld) 1.1 % Normal 0.0-6.0 [facility] Comment on above: Performed By: #### TOMASA DIETRICH ABOGEL, CMP #### [address] [address] Lymphocyte, Absolute 0.9 10 3/mcL Normal 0.9-4.3 [facility] Comment on above: Performed By: #### TOMASA DIETRICH ABOGEL, CMP #### [address] [address] Lymphocytes/100 WBC (Bld) 17.7 % Low 20.0-40.0 [facility] Comment on above: Performed By: #### TOMASA DIETRICH ABOGEL, CMP #### [address] [address] Monocyte, Absolute 0.6 10 3/mcL Normal 0.1-1.4 [facility] Comment on above: Performed By: #### TOMASA DIETRICH ABOGEL, CMP #### [address] [address] Monocytes/100 WBC (Bld) 11.1 % Normal 2.0-13.0 [facility] Comment on above: Performed By: #### TOMASA DIETRICH ABOGEL, CMP #### [address] [address] Neutrophils/100 WBC (Bld) 69.5 % Normal 50.0-75.0 [facility] Comment on above: Performed By: #### TOMASA DIETRICH ABOGEL, CMP #### [address] [address] .GFRon 10-17-2024 Estimated Glomerular Filtration Rate 113 ml/min/1.73sqm Normal [facility] Comment on above: Result Comment: Stages [...] By: #### TOMASA DIETRICH ABOGEL, CMP #### [address] [address] .NEUABSon 10-17-2024 Neutrophil, Absolute 3.7 10 3/mcL Normal 2.3-8.1 [facility] Comment on above: Performed By: #### TOMASA DIETRICH ABOGEL, CMP #### [address] [address] BMPon 10-17-2024 BUN/Creatinine Ratio 7.7 ratio Low 10.0-22.0 [facility] Comment on above: Performed By: #### TOMASA DIETRICH ABOGEL CMP #### [address] [address] Calcium [Mass/Vol] 8.5 mg/dL Low 8.7-10.4 [facility] Comment on above: Performed By: #### TOMASA DIETRICH ABOGEL CMP #### [address] [address] Chloride [Moles/Vol] 101 mmol/L Normal 98-110 [facility] Comment on above: Performed By: #### TOMASA DIETRICH ABOGEL CMP #### [address] [address] CO2 [Moles/Vol] 31 mmol/L Normal 22-32 [facility] Comment on above: Performed By: #### TOMASA DIETRICH ABOGEL CMP #### [address] [address] Creatinine [Mass/Vol] 0.65 mg/dL Normal 0.60-1.40 [facility] Comment on above: Result Comment: Test ing performed on frestyl analyzer using enzymatic creatinine methodology. Performed By: #### TOMASA DIETRICH ABOGEL, CMP #### [address] [address] Electrolyte Balance 7.0 mEq/L Normal 4.0-15.0 [facility] Comment on above: Performed By: #### TOMASA DIETRICH ABOGEL, CMP #### [address] [address] Glucose [Mass/Vol] 120 mg/dL High 70-110 [facility] Comment on above: Performed By: #### TOMASA DIETRICH ABOGEL, CMP #### [address] [address] Potassium [Moles/Vol] 3.3 mmol/L Low 3.5-5.0 [facility] Comment on above: Performed By: #### TOMASA DIETRICH ABOGEL, CMP #### [address] [address] Sodium [Moles/Vol] 139 mmol/L Normal 136-145 [facility] Comment on above: Performed By: #### TOMASA DIETRICH ABOGEL, CMP #### [address] [address] Urea nitrogen [Mass/Vol] 5.0 mg/dL Low 8.0-22.0 [facility] Comment on above: Performed By: #### TOMASA DIETRICH ABOGEL, CMP #### [address] [address] CBCon 10-17-2024 Erythrocyte distribution width (RBC) [Ratio] 17.0 % High 11.5-15.5 [facility] Comment on above: Performed By: #### G FR, CANDELARIA RANDOLPH, CMP #### [place] [address] Hematocrit (Bld) [Volume fraction] 40.3 % Normal 40.0-52.0 [facility] Comment on above: Performed By: #### G FR, MEGHAN RANDOLPHGEL, CMP #### [place] [address] Hgb 13.2 G/dL Normal 13.0-17.5 [facility] Comment on above: Performed By: #### G FR, CANDELARIA RANDOLPH, CMP #### [place] [address] MCH (RBC) [Entitic mass] 28.6 pg Normal 27.0-33.0 [facility] Comment on above: Performed By: #### G FR, CANDELARIA RANDOLPH, CMP #### [place] [address] MCHC 32.6 G/dL Normal 32.0-36.0 [facility] Comment on above: Performed By: #### G FR, CANDELARIA RANDOLPH, CMP #### [place] [address] MCV (RBC) [Entitic vol] 87.6 fL Normal 81.0-100.0 [facility] Comment on above: Performed By: #### G FR, CANDELARIA RANDOLPH, CMP #### [place] [address] Platelet 132 10 3/mcL Low 150-450 [facility] Comment on above: Performed By: #### G FR, ABSJOSELUIS, ABOGEL, CMP #### [place] [address] Platelet mean volume (Bld) [Entitic vol] 7.8 fL Normal 6.4-10.5 [facility] Comment on above: Performed By: #### G FR, ABSGEL, ABOGEL, CMP #### [place] [address] RBC 4.60 10 6/mcL Normal 4.50-6.00 [facility] Comment on above: Performed By: #### G TOMASA DEAN ABOGEL, CMP #### [facility] [address] [place] [address] WBC 5.4 10 3/mcL Normal 4.5-10.8 [facility] Comment on above: Performed By: #### G TOMASA DEAN ABOGEL, CMP #### [facility] [address] [place] [address] ANKLE W/O CONTRAST RIGHTo n 10-17-2024 [...] external fixator, multiplanar 10/17. transfer from [facility]. for right ankle fracture with [...] 10/17/2024 1:17:29 PM Ordering Provider: SUZE MISHRA [facility] MAIN LABORATORYOrdered By: SYSTEM SYSTEM on [...] Comment on above: Interpretive Data: Baljinder linn [employer] (CHEST, 1991, 102:312S-25S) recommended therapeutic range for oral anticoagulant therapy is: LOW RISK: Prophylaxis of venous thrombosis INR: 2.0-3.0 Treatment of pulmonary embolism 2.0-3.0 Prevention of systemic embolism 2.0-3.0 HIGH RISK: Mechanical prosthetic valves 2.5-3.5 PROon 10-17-2024 INR Coag (PPP) [Relative time] 1.2 {INR} [facility] MAIN Comment on above: Result Comment: [employer] (CHEST, 1991, 102:312S-25S) recommended therapeutic range for oral anticoagulant therapy is: LOW RISK: Prophylaxis of venous thrombosis INR: 2.0-3.0 Treatment of pulmonary embolism 2.0-3.0 Prevention of systemic embolism 2.0-3.0 HIGH RISK: Mechanical prosthetic valves 2.5-3.5 Performed By: #### A ERIC, CBC, BMP, ADIFF, GFR #### [place] [address] PT Coag (PPP) [Time] 13.7 s Normal 9.0-14.4 [facility] Comment on above: Result Comment: Effe ctive 12/11/07, Protime results may be affected by some antibiotics (i.e. Ciprofloxacin, Azithromycin, Bactrim) which may potentiate the action of oral anticoagulants, with further increases in Protime/INR. Performed By: #### A ERIC, CBC, BMP, ADIFF, GFR #### [address] [address] XR FLUORO 1-2 HRS TECH TIMEo n [...] Intraoperative fluoroscopic images. Please refer to the elevator operator's report for further information. I have personally reviewed the images of this examination and agree with the resident's findings and interpretation. Interpreted by: Beau Wahl Preliminary Report By: Nadya Hudson Electronically signed By Beau Wahl Dictated Date: 10/17/2024 1:42:02 PM Prelim Date: 10/17/2024 2:15:08 PM Sign Date: 10/17/2024 2:15:08 PM Ordering Provider: NANI Kate [facility] .Auto Diffon 10-16-2024 Basophil, Absolute 0.1 10 3/mcL Normal 0.0-0.3 [facility] Comment on above: Performed By: #### A ERIC, CBC, BMP, ADIFF, GFR #### [address] [address] Basophils/100 WBC (Bld) 0.8 % Normal 0.0-2.5 [facility] Comment on above: Performed By: #### A ERIC, CBC, BMP, ADIFF, GFR #### [address] [address] Eosinophil, Absolute 0.1 10 3/mcL Normal 0.0-0.7 [facility] Comment on above: Performed By: #### A ERIC, CBC, BMP, ADIFF, GFR #### [address] [address] Eosinophils/100 WBC (Bld) 1.2 % Normal 0.0-6.0 [facility] Comment on above: Performed By: #### A ERIC, CBC, BMP, ADIFF, GFR #### [address] [address] Lymphocyte, Absolute 1.4 10 3/mcL Normal 0.9-4.3 [facility] Comment on above: Performed By: #### A ERIC, CBC, BMP, ADIFF, GFR #### [address] [address] Lymphocytes/100 WBC (Bld) 19.8 % Low 20.0-40.0 [facility] Comment on above: Performed By: #### A ERIC, CBC, BMP, ADIFF, GFR #### [address] [address] Monocyte, Absolute 0.7 10 3/mcL Normal 0.1-1.4 [facility] Comment on above: Performed By: #### A ERIC, CBC, BMP, ADIFF, GFR #### [address] [address] Monocytes/100 WBC (Bld) 10.7 % Normal 2.0-13.0 [facility] Comment on above: Performed By: #### A ERIC, CBC, BMP, ADIFF, GFR #### [address] [address] Neutrophils/100 WBC (Bld) 67.5 % Normal 50.0-75.0 [facility] Comment on above: Performed By: #### A ERIC, CBC, BMP, ADIFF, GFR #### [address] [address] Basophil, Absolute 0.0 10 3/mcL Normal 0.0-0.3 [facility] Comment on above: Performed By: #### G FR, BMP, CBC, MG, ADIFF, ANEU #### [address] [address] Basophils/100 WBC (Bld) 0.7 % Normal 0.0-2.5 [facility] Comment on above: Performed By: #### G FR, BMP, CBC, MG, ADIFF, ANEU #### [address] [address] Eosinophil, Absolute 0.1 10 3/mcL Normal 0.0-0.7 [facility] Comment on above: Performed By: #### G FR, BMP, CBC, MG, ADIFF, ANEU #### [address] [address] Eosinophils/100 WBC (Bld) 0.8 % Normal 0.0-6.0 [facility] Comment on above: Performed By: #### G FR, BMP, CBC, MG, ADIFF, ANEU #### [address] [address] Lymphocyte, Absolute 1.1 10 3/mcL Normal 0.9-4.3 [facility] Comment on above: Performed By: #### G FR, BMP, CBC, MG, ADIFF, ANEU #### [address] [address] Lymphocytes/100 WBC (Bld) 17.2 % Low 20.0-40.0 [facility] Comment on above: Performed By: #### G FR, BMP, CBC, MG, ADIFF, ANEU #### [address] [address] Monocyte, Absolute 0.6 10 3/mcL Normal 0.1-1.4 [facility] Comment on above: Performed By: #### G FR, BMP, CBC, MG, ADIFF, ANEU #### [address] [address] Monocytes/100 WBC (Bld) 8.7 % Normal 2.0-13.0 [facility] Comment on above: Performed By: #### G FR, BMP, CBC, MG, ADIFF, ANEU #### [address] [address] Neutrophils/100 WBC (Bld) 72.6 % Normal 50.0-75.0 [facility] Comment on above: Performed By: #### G FR, BMP, CBC, MG, ADIFF, ANEU #### [address] [address] .GFRon 10-16-2024 Estimated Glomerular Filtration Rate 110 ml/min/1.73sqm Normal [facility] Comment on above: Result Comment: Stages [...] #### G FR, ABSGEL, ABOGEL, CMP #### [place] [address] Estimated Glomerular Filtration Rate 111 ml/min/1.73sqm [facility] MAIN Comment on above: Result Comment: [...] FR, BMP, CBC, MG, ADIFF, ANEU #### [address] [address] .MDWon 10-16-2024 Monocyte Distribution Width 19.45 Normal 0.00-20.00 [facility] Comment on above: Result Comment: For ED adult patients suspected of sepsis, MDW<=20.0 does not rule out sepsis or risk of sepsis Performed By: #### A ERIC, CBC, BMP, ADIFF, GFR #### [address] [address] Monocyte Distribution Width 17.52 Normal 0.00-20.00 [facility] Comment on above: Result Comment: For ED adult patients suspected of sepsis, MDW<=20.0 does not rule out sepsis or risk of sepsis Performed By: #### G FR, BMP, CBC, MG, ADIFF, ANEU #### [address] [address] .NEUABSon 10-16-2024 Neutrophil, Absolute 4.7 10 3/mcL Normal 2.3-8.1 [facility] Comment on above: Performed By: #### A ERIC, CBC, BMP, ADIFF, GFR #### [address] [address] Neutrophil, Absolute 4.7 10 3/mcL Normal 2.3-8.1 [facility] Comment on above: Performed By: #### G FR, BMP, CBC, MG, ADIFF, ANEU #### [address] [address] ABO/Rh (Gel)on 10-16-2024 ABO/Rh Interp Positive Invalid Interpretation Code [facility] Comment on above: Performed By: #### G FR, ABSGEL, ABOGEL, CMP #### [address] [address] ABS (Gel)on 10-16-2024 ABSC Interp (Gel) Negative Normal [facility] Comment on above: Performed By: #### G FR, ABSGEL, ABOGEL, CMP #### [address] [address] Stefanie 10-16-2024 Ethanol Level <10.0 Normal [facility] Comment on above: Performed By: #### G FR, BMP, CBC, MG, ADIFF, ANEU #### [address] [address] ANKLE COMPLETE RTon 10-17-19 25 ANKLE COMPLETE RT [place] [address] Patient: CARLOS ALBERTO KELLEY Phone#: : [phone] Age: 54 Gender: M Pt. Type: ER Account: [id number] Location: 05 Ordering: JAKE MAXWELL Exam Date: 10/16/2024/13:23 Family Phys: Charge Code: [id number] Physician: [place] Order #: [id number] Dose#: PROCEDURE: X-RAY ANKLE COMPLETE RT MIN [...] Bagley MD on 10/16/2024 at 14:15 Normal [facility] BMPon 10-16-2024 BUN/Creatinine Ratio 15.9 ratio Normal 10.0-22.0 [facility] Comment on above: Performed By: #### G FR, BMP, CBC, MG, ADIFF, ANEU #### [address] [address] Calcium [Mass/Vol] 9.4 mg/dL Normal 8.7-10.4 [facility] Comment on above: Performed By: #### G FR, BMP, CBC, MG, ADIFF, ANEU #### [address] [address] Chloride [Moles/Vol] 103 mmol/L Normal 98-110 [facility] Comment on above: Performed By: #### G FR, BMP, CBC, MG, ADIFF, ANEU #### [address] [address] CO2 [Moles/Vol] 32 mmol/L Normal 22-32 [facility] Comment on above: Performed By: #### G FR, BMP, CBC, MG, ADIFF, ANEU #### [address] [address] Creatinine [Mass/Vol] 0.69 mg/dL Normal 0.60-1.40 [facility] Comment on above: Result Comment: Test ing performed on frestyl analyzer using enzymatic creatinine methodology. Performed By: #### G FR, BMP, CBC, MG, ADIFF, ANEU #### [address] [address] Electrolyte Balance 5.0 mEq/L Normal 4.0-15.0 [facility] Comment on above: Performed By: #### G FR, BMP, CBC, MG, ADIFF, ANEU #### [place] [id number] Glucose [Mass/Vol] 94 mg/dL Normal 70-110 [facility] Comment on above: Performed By: #### G FR, BMP, CBC, MG, ADIFF, ANEU #### [address] [address] Potassium [Moles/Vol] 3.6 mmol/L Normal 3.5-5.0 [facility] Comment on above: Performed By: #### G FR, BMP, CBC, MG, ADIFF, ANEU #### [address] [address] Sodium [Moles/Vol] 140 mmol/L Normal 136-145 [facility] Comment on above: Performed By: #### G FR, BMP, CBC, MG, ADIFF, ANEU #### [address] [address] Urea nitrogen [Mass/Vol] 11.0 mg/dL Normal 8.0-22.0 [facility] Comment on above: Performed By: #### G FR, BMP, CBC, MG, ADIFF, ANEU #### [address] [address] CBCon 10-16-2024 Erythrocyte distribution width (RBC) [Ratio] 16.5 % High 11.5-15.5 [facility] Comment on above: Performed By: #### A ERIC, CBC, BMP, ADIFF, GFR #### [place] [address] Hematocrit (Bld) [Volume fraction] 45.2 % Normal 40.0-52.0 [facility] Comment on above: Performed By: #### A ERIC, CBC, BMP, ADIFF, GFR #### [place] [address] Hgb 14.8 G/dL Normal 13.0-17.5 [facility] Comment on above: Performed By: #### A ERIC, CBC, BMP, ADIFF, GFR #### [place] [id number] MCH (RBC) [Entitic mass] 28.8 pg Normal 27.0-33.0 [facility] Comment on above: Performed By: #### A ERCI, CBC, BMP, ADIFF, GFR #### [place] [address] MCHC 32.8 G/dL Normal 32.0-36.0 [facility] Comment on above: Performed By: #### A ERIC, CBC, BMP, ADIFF, GFR #### [place] [address] MCV (RBC) [Entitic vol] 87.8 fL Normal 81.0-100.0 [facility] Comment on above: Performed By: #### A ERIC, CBC, BMP, ADIFF, GFR #### [place] [id number] Platelet 172 10 3/mcL Normal 150-450 [facility] Comment on above: Performed By: #### A ERIC, CBC, BMP, ADIFF, GFR #### [place] [id number] Platelet mean volume (Bld) [Entitic vol] 7.9 fL Normal 6.4-10.5 [facility] Comment on above: Performed By: #### A ERIC, CBC, BMP, ADIFF, GFR #### [place] [id number] RBC 5.14 10 6/mcL Normal 4.50-6.00 [facility] Comment on above: Performed By: #### A ERIC, CBC, BMP, ADIFF, GFR #### [place] [id number] WBC 6.9 10 3/mcL Normal 4.5-10.8 [facility] Comment on above: Performed By: #### A ERIC, CBC, BMP, ADIFF, GFR #### [place] [address] Erythrocyte distribution width (RBC) [Ratio] 17.1 % High 11.5-15.5 [facility] Comment on above: Performed By: #### G FR, BMP, CBC, MG, ADIFF, ANEU #### [place] [address] Hematocrit (Bld) [Volume fraction] 43.2 % Normal 40.0-52.0 [facility] Comment on above: Performed By: #### G FR, BMP, CBC, MG, ADIFF, ANEU #### [place] [address] Hgb 14.3 G/dL Normal 13.0-17.5 [facility] Comment on above: Performed By: #### G FR, BMP, CBC, MG, ADIFF, ANEU #### [place] [id number] MCH (RBC) [Entitic mass] 28.9 pg Normal 27.0-33.0 [facility] Comment on above: Performed By: #### G FR, BMP, CBC, MG, ADIFF, ANEU #### [place] [id number] MCHC 33.0 G/dL Normal 32.0-36.0 [facility] Comment on above: Performed By: #### G FR, BMP, CBC, MG, ADIFF, ANEU #### [place] [id number] MCV (RBC) [Entitic vol] 87.4 fL Normal 81.0-100.0 [facility] Comment on above: Performed By: #### G FR, BMP, CBC, MG, ADIFF, ANEU #### [address] [address] Platelet 152 10 3/mcL Normal 150-450 [facility] Comment on above: Performed By: #### G FR, BMP, CBC, MG, ADIFF, ANEU #### [address] [address] Platelet mean volume (Bld) [Entitic vol] 7.7 fL Normal 6.4-10.5 [facility] Comment on above: Performed By: #### G FR, BMP, CBC, MG, ADIFF, ANEU #### [address] [address] RBC 4.94 10 6/mcL Normal 4.50-6.00 [facility] Comment on above: Performed By: #### G FR, BMP, CBC, MG, ADIFF, ANEU #### [address] [address] WBC 6.5 10 3/mcL Normal 4.5-10.8 [facility] Comment on above: Performed By: #### G FR, BMP, CBC, MG, ADIFF, ANEU #### [place] [id number] CBC + DIFFon 10-16-2024 Baso # 0.01 x10EE3/UL Normal 0.00 - 0.10 [facility] Comment on above: Performed By: #### 2 [address] #### [facility],[address] [place] [address] Basophils/100 WBC (Bld) 0.2 % Normal 0.0 - 2.0 [facility] Comment on above: Performed By: #### 2 37578 #### [facility],[address] [place] [address] CBC + DIFF Normal [facility] Comment on above: Result Comment: CBC- COMPLETE BLOOD COUNT Performed By: #### 2 47201 #### [facility],[address] [place] [address] EO # 0.04 x10EE3/UL Normal 0.00 - 0.50 [facility] Comment on above: Performed By: #### 2 36965 #### [facility],[address] [place], [place] [id number] Eosinophils/100 WBC (Bld) 0.7 % Normal 0.0 - 7.0 [facility] Comment on above: Performed By: #### 2 [address]2396 #### [facility],[address] [place] [address] Erythrocyte distribution width (RBC) [Ratio] 15.2 % Normal 12.0 - 15.6 [facility] Comment on above: Performed By: #### 2 57647 #### [facility],[address] [place] [address] Hematocrit (Bld) [Volume fraction] 44.1 % Normal 40.0 - 52.0 [facility] Comment on above: Performed By: #### 2 74845 #### [facility],[address] [place] [address] Hemoglobin (Bld) [Mass/Vol] 15.4 g/dL Normal 13.0 - 17.5 [facility] Comment on above: Performed By: #### 2 97306 #### [facility],[address] [place] [address] Lymph # 0.96 x10EE3/UL Normal 0.80 - 2.80 [facility] Comment on above: Performed By: #### 2 02931 #### [facility],[address] [place], [place] [id number] Lymphocytes/100 WBC (Bld) 17.1 % Low 20.0 - 45.0 [facility] Comment on above: Performed By: #### 2 29277 #### [facility],[address] [place], [place] [id number] MANUAL DIFF N/A Normal [facility] Comment on above: Performed By: #### 2 39146 #### [facility],[address] [place] [address] MCH (RBC) [Entitic mass] 31 pg Normal 27 - 33 [facility] Comment on above: Performed By: #### 2 23474 #### [facility],[address] [place] [address] MCHC 35 X10 3 Normal 32 - 36 [facility] Comment on above: Performed By: #### 2 01210 #### [facility],[address] [place] [address] MCV (RBC) [Entitic vol] 88 fL Normal 81 - 98 [facility] Comment on above: Performed By: #### 2 19416 #### [facility],[address] [place] [address] [place] # 0.47 x10EE3/UL Normal 0.20 - 1.00 [facility] Comment on above: Performed By: #### 2 07197 #### [facility],[address] [place] [address] MONOS % 8.4 % Normal 0.0 - 10.0 [facility] Comment on above: Performed By: #### 2 85283 #### [facility],[address] [place] [address] Morphology Rocky (Bld) [Interp] N/A Normal [facility] Comment on above: Performed By: #### 2 80001 #### [facility],[address] [place] [address] Neut # 4.12 x10EE3/UL Normal 1.50 - 7.10 [facility] Comment on above: Performed By: #### 2 75084 #### [facility],[address] [place] [address] Neutrophils/100 WBC (Bld) 73.6 % Normal 46.0 - 76.0 [facility] Comment on above: Performed By: #### 2 60227 #### [facility],[address] [place] [address] PLATELET 148 x10EE3/UL Low 150 - 450 [facility] Comment on above: Performed By: #### 2 62390 #### [facility],[address] [place] [address] Platelet mean volume (Bld) [Entitic vol] 8.1 fL Normal 6.4 - 10.5 [facility] Comment on above: Result Comment: AUTO MATED DIFFERENTIAL Performed By: #### 2 99461 #### [facility],[address] [place] [address] RBC 5.02 x 10EE6/UL Normal 4.50 - 6.00 [facility] Comment on above: Performed By: #### 2 26546 #### [facility],[address] [place] [address] WBC 5.6 x 10EE3/UL Normal 4.5 - 10.8 [facility] Comment on above: Performed By: #### 2 74756 #### [facility],[address] [place], [place] [id number] CMPon 10-16-2024 Albumin Level 3.6 G/dL Normal 3.2-4.8 [facility] Comment on above: Performed By: #### G TOMASA DEAN ABOGEL, CMP #### [address] [address] Albumin/Globulin [Mass ratio] 1.0 {ratio} Normal 0.9-1.6 [facility] Comment on above: Performed By: #### G , ABSCANDELARIA HUGGINS, CMP #### [address] [address] ALP [Catalytic activity/Vol] 70 U/L Normal 38-126 [facility] Comment on above: Performed By: #### G FR, ABSJOSELUIS ABOJOSELUIS, CMP #### [facility] [address] [place] [address] ALT [Catalytic activity/Vol] 12 U/L Normal 12-55 [facility] Comment on above: Performed By: #### G FR, ABSGEL, ABOGEL, CMP #### [address] [address] AST [Catalytic activity/Vol] 17 U/L Normal 8-34 [facility] Comment on above: Performed By: #### TOMASA DIETRICH ABOGEL, CMP #### [address] [address] Bili Total 0.60 mg/dL Normal 0.20-1.20 [facility] Comment on above: Result Comment: Use of this assay is not recommended for patients undergoing treatment with eltrombopag due to the potential for falsely elevated results. Performed By: #### TOMASA DIETRICH ABOGEL, CMP #### [address] [address] BUN/Creatinine Ratio 14.1 ratio Normal 10.0-22.0 [facility] Comment on above: Performed By: #### TOMASA DIETRICH ABOGEL CMP #### [address] [address] Calcium [Mass/Vol] 9.0 mg/dL Normal 8.7-10.4 [facility] Comment on above: Performed By: #### TOMASA DIETRICH ABOGEL, CMP #### [address] [address] Chloride [Moles/Vol] 102 mmol/L Normal 98-110 [facility] Comment on above: Performed By: #### TOMASA DIETRICH ABOGEL, CMP #### [address] [address] CO2 [Moles/Vol] 33 mmol/L High 22-32 [facility] Comment on above: Performed By: #### TOMASA DIETRICH ABOGEL, CMP #### [address] [address] Creatinine [Mass/Vol] 0.71 mg/dL Normal 0.60-1.40 [facility] Comment on above: Result Comment: Test ing performed on frestyl analyzer using enzymatic creatinine methodology. Performed By: #### TOMASA DIETRICH ABOGEL, CMP #### [address] [address] Electrolyte Balance 4.0 mEq/L Normal 4.0-15.0 [facility] Comment on above: Performed By: #### TOMASA DIETRICH ABOGEL, CMP #### [address] [address] Globulin 3.5 G/dL Normal 2.5-4.2 [facility] Comment on above: Performed By: #### TOMASA DIETRICH ABOGEL, CMP #### [address] [address] Glucose [Mass/Vol] 109 mg/dL Normal 70-110 [facility] Comment on above: Performed By: #### TOMASA DIETRICH ABOGEL, CMP #### [address] [address] Potassium [Moles/Vol] 3.7 mmol/L Normal 3.5-5.0 [facility] Comment on above: Performed By: #### TOMASA DIETRICH ABOGEL, CMP #### [address] [address] Sodium [Moles/Vol] 139 mmol/L Normal 136-145 [facility] Comment on above: Performed By: #### TOMASA DIETRICH ABOGEL, CMP #### [address] [address] Total Protein 7.1 G/dL Normal 5.7-8.2 [facility] Comment on above: Performed By: #### TOMASA DIETRICH ABOGEL, CMP #### [address] [address] Urea nitrogen [Mass/Vol] 10.0 mg/dL Normal 8.0-22.0 [facility] Comment on above: Performed By: #### TOMASA DIETRICH ABOGEL, CMP #### [address] [address] CMP with eGFRon 10-16-2024 AGE 54 years Normal [facility] Comment on above: Performed By: #### 2 19757 ####[facility],[address] [place] [address] Albumin [Mass/Vol] 3.4 g/dL Normal 3.4 - 5.0 [facility] Comment on above: Performed By: #### 2 70729 ####[facility],[address] [place] [address] Albumin/Globulin [Mass ratio] 0.9 {ratio} Normal 0.9 - 1.6 [facility] Comment on above: Performed By: #### 2 63583 ####[facility],[address] [place] [address] ALK PHOS 76 U/L Normal 46 - 116 [facility] Comment on above: Performed By: #### 2 05872 ####[facility],[address] [place] [address] ALT [Catalytic activity/Vol] 17 U/L Normal 16 - 63 [facility] Comment on above: Performed By: #### 2 13214 ####[facility],[address] [place] [address] Anion gap [Moles/Vol] 11 mmol/L Normal 10 - 20 [facility] Comment on above: Performed By: #### 2 34367 ####[facility],[address] [place] [address] AST [Catalytic activity/Vol] 17 U/L Normal 15 - 37 [facility] Comment on above: Performed By: #### 2 36356 ####[facility],[address] [place] [address] B/C RATIO 13 ratio Normal 0 - 30 [facility] Comment on above: Performed By: #### 2 67504 ####[facility],[address] [place] [address] Bilirubin [Mass/Vol] 0.5 mg/dL Normal 0.2 - 1.0 [facility] Comment on above: Performed By: #### 2 99079 ####[facility],[address] [place] [address] Calcium [Mass/Vol] 8.9 mg/dL Normal 8.5 - 10.1 [facility] Comment on above: Performed By: #### 2 09905 ####[facility],[address] [place] [address] Chloride [Moles/Vol] 101 mmol/L Normal 98 - 107 [facility] Comment on above: Performed By: #### 2 47904 ####[facility],[address] [place] [address] CMP with eGFR Normal [facility] Comment on above: Result Comment: COMP REHENSIVE METABOLIC PANEL Performed By: #### 2 19342 ####[facility],[address] [place] [address] CO2 [Moles/Vol] 30.7 mmol/L Normal 21.0 - 32.0 [facility] Comment on above: Performed By: #### 2 87168 ####[facility],[address] [place] [address] Creatinine [Mass/Vol] 0.96 mg/dL Normal 0.70 - 1.30 [facility] Comment on above: Performed By: #### 2 36309 ####[facility],[address] [place] [address] GFR/1.73 sq M.predicted among non-blacks MDRD (S/P/Bld) [Vol rate/Area] mL/min/{1.73_m2} Normal 60 - 999 [facility] Comment on above: Performed By: #### 2 55999 ####[facility],[address] [place] [address] Result Comment: ACCO RDING TO THE NATIONAL KIDNEY DISEASE EDUCATION PROGRAM(NKDE), A NORMAL eGFR IS A VALUE GREATER THAN OR EQUAL TO 60 ML/MIN/1.73 SQ METERS. CHRONIC KIDNEY DISEASE: <60mL/MIN/1.73 SQ METERS KIDNEY FAILURE: <15mL/MIN/1.73 SQ METERS THIS TEST SHOULD ONLY BE USED FOR PATIENTS 18 YEARS OF AGE AND OLDER. Globulin (S) [Mass/Vol] 3.7 g/dL Normal 1.5 - 3.8 [facility] Comment on above: Performed By: #### 2 37411 ####[facility],[address] [place] [address] Glucose [Mass/Vol] 94 mg/dL Normal 74 - 106 [facility] Comment on above: Performed By: #### 2 82100 ####[facility],[address] [place] [address] Potassium [Moles/Vol] 3.6 mmol/L Normal 3.5 - 5.1 [facility] Comment on above: Performed By: #### 2 67048 ####[address] [address] Protein [Mass/Vol] 7.1 g/dL Normal 6.4 - 8.2 [facility] Comment on above: Performed By: #### 2 00665 ####[address] [address] Sodium [Moles/Vol] 139 mmol/L Normal 136 - 145 [facility] Comment on above: Performed By: #### 2 24880 ####[address] [address] Urea nitrogen [Mass/Vol] 12 mg/dL Normal 7 - 18 [facility] Comment on above: Performed By: #### 2 73079 ####[address] [address] ED MED ADMINISTRATION DETAIL on 10-16-2024 ED MED ADMINISTRATION DETAIL Chemical Compounder Medication Administration Record [address] [address] [id number] 10/16/2024 Patient: CARLOS ALBERTO KELLEY Sex: Male : 1970 Age: 54y MEASUREMENTS: Wt: 140.2 kg, Ht/Wilson: 69.0 in, BMI: 45.63 ALLERGIES: Hdybuzn-WXQ-KdF Reductase Inhibitors Medication Ordered Medication Administration Date/Time [...] Destiney Chu R.N. 1 of 1 Normal [facility] ED NURSES CLINICAL NOTEon ED NURSES CLINICAL NOTE Nurse Narrative Nurse Clinical Narrative [address] [place] [address] [id number] 10/16/2024 12:34:00 Patient: CARLOS ALBERTO KELLEY Sex: Male : 1970 Age: 54y Disposition: Transfer to [facility] Disposition Decision Time: 14:27 10/16/2024 Departure [...] had swelling, redness and trouble walking. Treatment CLINIC BUSINESS MANAGER: Ice. SEPSIS SCREEN: NEGATIVE. SIRS criteria negative. No possible sources of infection. -- 12:47 10/16/24 EDT Silvina Maguire R.N. 12:47 10/16/24. BP: 171/95 MAP: 120. HR: 93. RR: 18. O2 saturation: 93% Temperature: 98.9 F. Pain level now 03/07. -- 12:47 10/16/24 [facility] Silvina Maguire R.N. Measurements: 12:45 10/16/24 Wt: 140.2 kg, Ht/Wilson: 69.0 in, BMI: 45.63 -- 12:45 10/16/24 [facility] Silvina Maguire R.N. 1 of 5 Nurse Narrative Medications: omeprazole 40 mg capsule,delayed release -- 12:51 10/16/24 [facility] Silvina Maguire R.N. dofetilide 250 mcg capsule -- 12:51 10/16/24 [facility] Silvina Maguire R.N. albuterol sulfate 2.5 mg/3 mL (0.083 %) solution for nebulization -- 12:51 10/16/24 [facility] Silvina Maguire R.N. pravastatin 40 mg tablet -- 12:51 10/16/24 [facility] Silvina Maguire R.N. metoprolol succinate ER 100 mg tablet,extended release 24 hr -- 12:51 10/16/24 [facility] Silvina Maguire R.N. spironolactone 25 mg tablet -- 12:51 10/16/24 [facility] Silvina Maguire R.N. trazodone 100 mg tablet -- 12:51 10/16/24 [facility] Silvina Maguire R.N. tizanidine 2 mg tablet -- 12:51 10/16/24 [facility] Silivna Maguire R.N. hydroxyzine pamoate 25 mg capsule -- 12:51 10/16/24 [facility] Silvina Maguire R.N. furosemide 20 mg tablet -- 12:51 10/16/24 [facility] Silvina Maguire R.N. duloxetine 20 mg capsule,delayed release -- 12:51 10/16/24 [facility] Silvina Maguire R.N. budesonide-formoterol HFA 80 mcg-4.5 [...] 12:51 10/16/24 EDT Silvina Maguire R.N. Allergies: Itqcxui-SSS-VmI Reductase Inhibitors -- 12:40 10/16/24 EKTAT Silvina [...] 10/16/24. E (more content not included)... Normal [facility] ED ORDER SHEET (CPOE ONLY)on 10-16-2024 ED ORDER SHEET (CPOE ONLY) Order Sheet Order Sheet [address] [address] [id number] 10/16/2024 Patient: CARLOS ALBERTO KELLEY Sex: Male : 1970 Age: 54y MEASUREMENTS: Wt: 140.2 kg, Ht/Wilson: 69.0 in, BMI: 45.63 ALLERGIES: Fpsqeox-GHE-SfS Reductase Inhibitors MEDICATION/IV/DRIP/FL UID ORDERS Order Description [...] (10/16/2024 15:18 EDT)] 3 of 3 Normal [facility] ED PHYSICIAN CLINICAL REPORT on 10-16-2024 ED PHYSICIAN CLINICAL REPORT Narrative Physician Clinical Narrative [address] [address] [id number] 10/16/2024 12:34:00 Patient: CARLOS ALBERTO KELLEY Sex: Male : 1970 Age: 54y Disposition: Transfer to [facility] Disposition Decision Time: 14:27 10/16/2024 Measurements [...] pen injector Xarelto 20 mg tablet Allergies: Grabqgu-SNA-UnM Reductase Inhibitors SOCIAL HISTORY Does not use [...] 148 x10/UL (more content not included)... Normal [facility] ED SUPER BILLon 10-16-2024 ED [facility] BILL [facility] [address] [place] [address] [id number] 10/16/2024 Patient: CARLOS ALBERTO KELLEY Sex: Male : 1970 Age: 54y Facility Professional Category Item Description Code Code Quantity Fee Total Nurse/E/M EMERGENCY 293733 1 $0.00 $0.00 DEPT VISIT HIGH SEVERITYFUNCJ (91757-73) Nurse/IV/IM/Infusions IVP initial (21977) 882473 1 $0.00 $0.00 Grand $0.00 Total Providers Jake Maxwell M.D. Jake Maxwell M.D. Chief Complaint Injury to right foot and right ankle. Principal Diagnosis Closed displaced, severely angulated right bimalleolar fracture. 1 of 2 [facility] ICD-10 Codes S82.841A: Displaced bimalleolar fracture of right lower leg, initial encounter for closed fracture 2 of 2 Normal [facility] ED VISIT SUMMARYon ED VISIT SUMMARY Visit Overview Visit Overview [address] [address] [id number] 10/16/2024 Patient: CARLOS ALBERTO KELLEY Sex: Male : 1970 Age: 54y 10/16/2024 07:42 PM EDT ED Arrival:12:34 10/16/2024 EDT Status: Recent Travel:no Language:eng Adv Directive:No Isolation Status: Ethnicity:N Fall Risk:risk Infectious Disease Exposure:no Measurements:5'9 / 175.3 Self-Harm Status:risk Sepsis Screen:negative cm 309.0 lb / 140.2 kg Chief Complaint:RIGHT LOWER EXTREMITY PAIN, RIGHT LOWER EXTREMITY REDNESS, and RIGHT LOWER EXTREMITY SWELLING ALLERGIES Gipfljy-OWE-CvD Reductase Inhibitors HOME MEDICATIONS albuterol sulfate 2.5 [...] RIGHT BIMALLEOLAR FRACTURE 4 of 4 Normal [facility] ED VITALS FLOW SHEETon 10-16 ED VITALS FLOW SHEET Vitals Vital Sign Flow Sheet [place] [address] [place] [address] [id number] 10/16/2024 Patient: CARLOS ALBERTO KELLEY Sex: Male [...] 98.9 F 10 2 of 2 Normal [facility] FOOT COMPLETE RTon FOOT COMPLETE RT [place] [address] Patient: CARLOS ALBERTO KELLEY Phone#: : 1970 Age: 54 Gender: M Pt. Type: ER Account: [id number] Location: 052 Ordering: JAKE MAXWELL Exam Date: 10/16/2024/13:00 Family Phys: Charge Code: 803364 Physician: [place] Order #: [id number] Dose#: PROCEDURE: X-RAY FOOT RT COMPLETE MIN [...] Bagley MD on 10/16/2024 at 14:23 Normal [facility] LABORATORYOrdered By: SYSTEM SYSTEM on 10-16-2024 Monocyte [...] [Moles/Vol] 1.1 mmol/L Normal 0.4 - 2.0 [facility] Comment on above: Performed By: #### 2 40981 #### [facility],[address] [place], [place] [id number] NT-proBNPon 10-16-2024 Natriuretic peptide B (Bld) [Mass/Vol] 291 pg/mL High 0 - 125 [facility] Comment on above: Performed By: #### 2 16228 #### [facility],[address] [place], [place] [id number] PROTHROMBIN TIME AND INRon 0 10-16-2024 INR Coag (PPP) [Relative time] 1.4 {INR} High 0.8 - 1.2 [facility] Comment on above: Result Comment: T HE [...] MECHANICAL HEART VALVES Performed By: #### 2 72647 ####[facility],[address] [place] [address] PROTHROMBIN TIME AND INR Normal [facility] Comment on above: Result Comment: PROT HROMBIN TIME AND INR Performed By: #### 2 48554 ####[facility],[address] [place] [address] PT-COUMADIN 15.9 sec High 9.3 - 14.1 [facility] Comment on above: Performed By: #### 2 21595 ####[facility],[address] [place] [address] TIBIA-FIBULA RTon 10-16-2024 TIBIA-FIBULA RT [place] [address] Patient: CARLOS ALBERTO KELLEY Phone#: : 1970 Age: 54 Gender: M Pt. Type: ER Account: [id number] Location: [facility] Ordering: JAKE MAXWELL Exam Date: 10/16/2024/13:23 Family Phys: Charge Code: [id number] Physician: [place] Order #: [id number] Dose#: PROCEDURE: X-RAY TIB FIB RT 2 [...] Bagley MD on 10/16/2024 at 14:12 Normal [facility] XR ANKLE MINIMUM 3 VIEWS LEF [...] Sign Date: 10/16/2024 10:39:42 PM Ordering Provider: [facility] MAIN XR ANKLE MINIMUM 3 VIEWS [...] Sign Date: 10/16/2024 9:20:54 PM Ordering Provider: [facility] MAIN XR ANKLE MINIMUM 3 VIEWS [...] 10/16/2024 7:53:07 PM Ordering Provider: EMJOANNE GARCIA [facility] XR ANKLE MINIMUM 3 VIEWS RIGHT [...] 10/16/2024 6:28:12 PM Ordering Provider: EMJOANNE GARCIA [facility] MAIN .Auto Diffon 10-04-2024 Basophil, Absolute 0.0 10 3/mcL Normal 0.0-0.3 [facility] Comment on above: Performed By: #### A ERIC, CBC, BMP, ADIFF, GFR #### [facility] [address] [place] [address] Basophils/100 WBC (Bld) 0.9 % Normal 0.0-2.5 [facility] Comment on above: Performed By: #### A ERIC, CBC, BMP, ADIFF, GFR #### [address] [address] Eosinophil, Absolute 0.1 10 3/mcL Normal 0.0-0.7 [facility] Comment on above: Performed By: #### A ERIC, CBC, BMP, ADIFF, GFR #### [address] [address] Eosinophils/100 WBC (Bld) 1.9 % Normal 0.0-6.0 [facility] Comment on above: Performed By: #### A ERIC, CBC, BMP, ADIFF, GFR #### [address] [address] Lymphocyte, Absolute 1.0 10 3/mcL Normal 0.9-4.3 [facility] Comment on above: Performed By: #### A ERIC, CBC, BMP, ADIFF, GFR #### [address] [address] Lymphocytes/100 WBC (Bld) 24.9 % Normal 20.0-40.0 [facility] Comment on above: Performed By: #### A ERIC, CBC, BMP, ADIFF, GFR #### [address] [address] Monocyte, Absolute 0.3 10 3/mcL Normal 0.1-1.4 [facility] Comment on above: Performed By: #### A ERIC, CBC, BMP, ADIFF, GFR #### [address] [address] Monocytes/100 WBC (Bld) 7.5 % Normal 2.0-13.0 [facility] Comment on above: Performed By: #### A ERIC, CBC, BMP, ADIFF, GFR #### [address] [address] Neutrophils/100 WBC (Bld) 64.8 % Normal 50.0-75.0 [facility] Comment on above: Performed By: #### A ERIC, CBC, BMP, ADIFF, GFR #### [address] [address] .GFRon 10-04-2024 Estimated Glomerular Filtration Rate 107 ml/min/1.73sqm Normal [facility] Comment on above: Result Comment: Stages [...] A ERIC, CBC, BMP, ADIFF, GFR #### [address] [address] .NEUABSon 10-04-2024 Neutrophil, Absolute 2.5 10 3/mcL Normal 2.3-8.1 [facility] Comment on above: Performed By: #### A ERIC, CBC, BMP, ADIFF, GFR #### [address] [address] BMPon 10-04-2024 BUN/Creatinine Ratio 6.5 ratio Low 10.0-22.0 [facility] Comment on above: Performed By: #### A ERIC, CBC, BMP, ADIFF, GFR #### [address] [address] Calcium [Mass/Vol] 8.5 mg/dL Low 8.7-10.4 [facility] Comment on above: Performed By: #### A ERIC, CBC, BMP, ADIFF, GFR #### [address] [address] Chloride [Moles/Vol] 102 mmol/L Normal 98-110 [facility] Comment on above: Performed By: #### A ERIC, CBC, BMP, ADIFF, GFR #### [address] [address] CO2 [Moles/Vol] 31 mmol/L Normal 22-32 [facility] Comment on above: Performed By: #### A ERIC, CBC, BMP, ADIFF, GFR #### [address] [address] Creatinine [Mass/Vol] 0.77 mg/dL Normal 0.60-1.40 [facility] Comment on above: Result Comment: Test ing performed on frestyl analyzer using enzymatic creatinine methodology. Performed By: #### A ERIC, CBC, BMP, ADIFF, GFR #### [address] [address] Electrolyte Balance 6.0 mEq/L Normal 4.0-15.0 [facility] Comment on above: Performed By: #### A ERIC, CBC, BMP, ADIFF, GFR #### [address] [address] Glucose [Mass/Vol] 108 mg/dL Normal 70-110 [facility] Comment on above: Performed By: #### A ERIC, CBC, BMP, ADIFF, GFR #### [address] [address] Potassium [Moles/Vol] 3.5 mmol/L Normal 3.5-5.0 [facility] Comment on above: Performed By: #### A ERIC, CBC, BMP, ADIFF, GFR #### [address] [address] Sodium [Moles/Vol] 139 mmol/L Normal 136-145 [facility] Comment on above: Performed By: #### A ERIC, CBC, BMP, ADIFF, GFR #### [address] [address] Urea nitrogen [Mass/Vol] 5.0 mg/dL Low 8.0-22.0 [facility] Comment on above: Performed By: #### A ERIC, CBC, BMP, ADIFF, GFR #### [address] [address] CBCon 10-04-2024 Erythrocyte distribution width (RBC) [Ratio] 17.1 % High 11.5-15.5 [facility] Comment on above: Performed By: #### G FR, ABSGEL, ABOGEL, CMP #### [place] [address] Hematocrit (Bld) [Volume fraction] 42.5 % Normal 40.0-52.0 [facility] Comment on above: Performed By: #### TOMASA DIETRICH ABOGEL, CMP #### [address] [address] Hgb 13.8 G/dL Normal 13.0-17.5 [facility] Comment on above: Performed By: #### TOMASA DIETRICH ABOGEL, CMP #### [place] [address] MCH (RBC) [Entitic mass] 28.4 pg Normal 27.0-33.0 [facility] Comment on above: Performed By: #### TOMASA DIETRICH ABOGEL, CMP #### [place] [address] MCHC 32.6 G/dL Normal 32.0-36.0 [facility] Comment on above: Performed By: #### TOMASA DIETRICH ABOGEL, CMP #### [place] [address] MCV (RBC) [Entitic vol] 87.2 fL Normal 81.0-100.0 [facility] Comment on above: Performed By: #### TOMASA DIETRICH ABOGEL, CMP #### [place] [address] Platelet 120 10 3/mcL Low 150-450 [facility] Comment on above: Performed By: #### TOMASA DIETRICH ABOGEL, CMP #### [place] [address] Platelet mean volume (Bld) [Entitic vol] 7.4 fL Normal 6.4-10.5 [facility] Comment on above: Performed By: #### TOMASA DIETRICH ABOGEL, CMP #### [place] [address] RBC 4.87 10 6/mcL Normal 4.50-6.00 [facility] Comment on above: Performed By: #### TOMASA DIETIRCH ABOGEL, CMP #### [facility] [address] [place] [address] WBC 3.8 10 3/mcL Low 4.5-10.8 [facility] Comment on above: Performed By: #### G TOMASA DEAN ABOGEL, CMP #### [facility] [address] [place] [address] LABORATORYOrdered By: Adenike Swain on 10-04-2024 Blood Glucose Testing Reason Routine (10/04/24 7:18 AM) [facility] Glucose [Mass/Vol] 100 mg/dL Normal 70 - 110 mg/dL [facility] LABORATORYOrdered By: SYSTEM SYSTEM on 10-04-2024 [...] above: Interpretive Data: T esting performed on frestyl analyzer using enzymatic creatinine methodology. Electrolyte Balance [...] 10-04-2024 Magnesium [Mass/Vol] 1.9 mg/dL Normal 1.6-2.4 [facility] Comment on above: Performed By: #### A ERIC, CBC, BMP, ADIFF, GFR #### [address] [address] .Auto Diffon 10-03-2024 Basophil, Absolute 0.0 10 3/mcL Normal 0.0-0.3 [facility] Comment on above: Performed By: #### A ERIC, CBC, BMP, ADIFF, GFR #### [address] [address] Basophils/100 WBC (Bld) 0.9 % Normal 0.0-2.5 [facility] Comment on above: Performed By: #### A ERIC, CBC, BMP, ADIFF, GFR #### [address] [address] Eosinophil, Absolute 0.1 10 3/mcL Normal 0.0-0.7 [facility] Comment on above: Performed By: #### A ERIC, CBC, BMP, ADIFF, GFR #### [address] [address] Eosinophils/100 WBC (Bld) 2.0 % Normal 0.0-6.0 [facility] Comment on above: Performed By: #### A ERIC, CBC, BMP, ADIFF, GFR #### [address] [address] Lymphocyte, Absolute 0.9 10 3/mcL Normal 0.9-4.3 [facility] Comment on above: Performed By: #### A ERIC, CBC, BMP, ADIFF, GFR #### [address] [address] Lymphocytes/100 WBC (Bld) 21.1 % Normal 20.0-40.0 [facility] Comment on above: Performed By: #### A ERIC, CBC, BMP, ADIFF, GFR #### [address] [address] Monocyte, Absolute 0.3 10 3/mcL Normal 0.1-1.4 [facility] Comment on above: Performed By: #### A ERIC, CBC, BMP, ADIFF, GFR #### [address] [address] Monocytes/100 WBC (Bld) 7.6 % Normal 2.0-13.0 [facility] Comment on above: Performed By: #### A ERIC, CBC, BMP, ADIFF, GFR #### [address] [address] Neutrophils/100 WBC (Bld) 68.4 % Normal 50.0-75.0 [facility] Comment on above: Performed By: #### A ERIC, CBC, BMP, ADIFF, GFR #### [address] [address] .GFRon 10-03-2024 Estimated Glomerular Filtration Rate 109 ml/min/1.73sqm Normal [facility] Comment on above: Result Comment: Stages [...] A ERIC, CBC, BMP, ADIFF, GFR #### [place] [address] .NEUABSon 10-03-2024 Neutrophil, Absolute 2.8 10 3/mcL Normal 2.3-8.1 [facility] Comment on above: Performed By: #### A ERIC, CBC, BMP, ADIFF, GFR #### [place] [address] A1Con 10-03-2024 Glucose [Mass/Vol] 114 mg/dL Normal [facility] Comment on above: Result Comment: Zahida mated Average Glucose calculated by equation ((28.7xA1C)-46.7) Estimated average glucose (eAG) is a calculated value from Hemoglobin A1C and is senior human resources representative of the average blood glucose level in the last 2-3 month period. Normal range: less than 114 mg/dL Performed By: #### A ERIC, CBC, BMP, ADIFF, GFR #### [place] [address] HbA1c (Bld) [Mass fraction] 5.6 % Normal 4.0-6.0 [facility] Comment on above: Performed By: #### A ERIC, CBC, BMP, ADIFF, GFR #### [place] [address] CBCon 10-03-2024 Erythrocyte distribution width (RBC) [Ratio] 16.6 % High 11.5-15.5 [facility] Comment on above: Performed By: #### A ERIC, CBC, BMP, ADIFF, GFR #### [place] [address] Hematocrit (Bld) [Volume fraction] 41.1 % Normal 40.0-52.0 [facility] Comment on above: Performed By: #### A ERIC, CBC, BMP, ADIFF, GFR #### [place] [address] Hgb 13.5 G/dL Normal 13.0-17.5 [facility] Comment on above: Performed By: #### A ERIC, CBC, BMP, ADIFF, GFR #### [place] [address] MCH (RBC) [Entitic mass] 28.7 pg Normal 27.0-33.0 [facility] Comment on above: Performed By: #### A ERIC, CBC, BMP, ADIFF, GFR #### [place] [address] MCHC 32.9 G/dL Normal 32.0-36.0 [facility] Comment on above: Performed By: #### A ERIC, CBC, BMP, ADIFF, GFR #### [place] [address] MCV (RBC) [Entitic vol] 87.2 fL Normal 81.0-100.0 [facility] Comment on above: Performed By: #### A ERIC, CBC, BMP, ADIFF, GFR #### [place] [address] Platelet 136 10 3/mcL Low 150-450 [facility] Comment on above: Performed By: #### A ERIC, CBC, BMP, ADIFF, GFR #### [place] [address] Platelet mean volume (Bld) [Entitic vol] 7.6 fL Normal 6.4-10.5 [facility] Comment on above: Performed By: #### A ERIC, CBC, BMP, ADIFF, GFR #### [place] [address] RBC 4.72 10 6/mcL Normal 4.50-6.00 [facility] Comment on above: Performed By: #### A ERIC, CBC, BMP, ADIFF, GFR #### [place] [address] WBC 4.2 10 3/mcL Low 4.5-10.8 [facility] Comment on above: Performed By: #### A ERIC, CBC, BMP, ADIFF, GFR #### [place] [address] CMPon 10-03-2024 Albumin Level 3.3 G/dL Normal 3.2-4.8 [facility] Comment on above: Performed By: #### A ERIC, CBC, BMP, ADIFF, GFR #### [place] [id number] Albumin/Globulin [Mass ratio] 1.0 {ratio} Normal 0.9-1.6 [facility] Comment on above: Performed By: #### A ERIC, CBC, BMP, ADIFF, GFR #### [address] [address] ALP [Catalytic activity/Vol] 56 U/L Normal 38-126 [facility] Comment on above: Performed By: #### A ERIC, CBC, BMP, ADIFF, GFR #### [place] [id number] ALT [Catalytic activity/Vol] 10 U/L Low 12-55 [facility] Comment on above: Performed By: #### A ERIC, CBC, BMP, ADIFF, GFR #### [place] [id number] AST [Catalytic activity/Vol] 16 U/L Normal 8-34 [facility] Comment on above: Performed By: #### A ERIC, CBC, BMP, ADIFF, GFR #### [place] [id number] Bili Total 0.60 mg/dL Normal 0.20-1.20 [facility] Comment on above: Result Comment: Use of this assay is not recommended for patients undergoing treatment with eltrombopag due to the potential for falsely elevated results. Performed By: #### A ERIC, CBC, BMP, ADIFF, GFR #### [place] [id number] BUN/Creatinine Ratio 9.6 ratio Low 10.0-22.0 [facility] Comment on above: Performed By: #### A ERIC, CBC, BMP, ADIFF, GFR #### [address] [address] Calcium [Mass/Vol] 8.4 mg/dL Low 8.7-10.4 [facility] Comment on above: Performed By: #### A ERIC, CBC, BMP, ADIFF, GFR #### [address] [address] Chloride [Moles/Vol] 105 mmol/L Normal 98-110 [facility] Comment on above: Performed By: #### A ERIC, CBC, BMP, ADIFF, GFR #### [address] [address] CO2 [Moles/Vol] 31 mmol/L Normal 22-32 [facility] Comment on above: Performed By: #### A ERIC, CBC, BMP, ADIFF, GFR #### [address] [address] Creatinine [Mass/Vol] 0.73 mg/dL Normal 0.60-1.40 [facility] Comment on above: Result Comment: Test ing performed on frestyl analyzer using enzymatic creatinine methodology. Performed By: #### A ERIC, CBC, BMP, ADIFF, GFR #### [address] [address] Electrolyte Balance 1.0 mEq/L Low 4.0-15.0 [facility] Comment on above: Performed By: #### A ERIC, CBC, BMP, ADIFF, GFR #### [address] [address] Globulin 3.2 G/dL Normal 2.5-4.2 [facility] Comment on above: Performed By: #### A ERIC, CBC, BMP, ADIFF, GFR #### [address] [address] Glucose [Mass/Vol] 109 mg/dL Normal 70-110 [facility] Comment on above: Performed By: #### A ERIC, CBC, BMP, ADIFF, GFR #### [address] [address] Potassium [Moles/Vol] 3.5 mmol/L Normal 3.5-5.0 [facility] Comment on above: Performed By: #### A ERIC, CBC, BMP, ADIFF, GFR #### [address] [address] Sodium [Moles/Vol] 137 mmol/L Normal 136-145 [facility] Comment on above: Performed By: #### A ERIC, CBC, BMP, ADIFF, GFR #### [address] [address] Total Protein 6.5 G/dL Normal 5.7-8.2 [facility] Comment on above: Performed By: #### A ERIC, CBC, BMP, ADIFF, GFR #### [address] [address] Urea nitrogen [Mass/Vol] 7.0 mg/dL Low 8.0-22.0 [facility] Comment on above: Performed By: #### A ERIC, CBC, BMP, ADIFF, GFR #### [address] [address] LABORATORYOrdered By: Jorge Wahl on 10-03-2024 Blood Glucose Testing Reason Routine (10/03/24 4:57 PM) [facility] Glucose [Mass/Vol] 81 mg/dL Normal 70 - 110 mg/dL [facility] LABORATORYOrdered By: Sophie Simental on 10-03-2024 Blood Glucose Testing Reason Routine (10/03/24 11:18 AM) [facility] Glucose [Mass/Vol] 99 mg/dL Normal 70 - 110 mg/dL [facility] LABORATORYOrdered By: SYSTEM SYSTEM on 10-03-2024 [...] above: Interpretive Data: T esting performed on frestyl analyzer using enzymatic creatinine methodology. Electrolyte Balance [...] calculated value from Hemoglobin A1C and is senior human resources representative of the average blood glucose level [...] A ERIC, CBC, BMP, ADIFF, GFR #### [address] [address] Cholesterol in HDL [Mass/Vol] 17 mg/dL Low 40-59 [facility] Comment on above: Performed By: #### A ERIC, CBC, BMP, ADIFF, GFR #### [address] [address] Cholesterol in LDL [Mass/Vol] 58 mg/dL Normal 0-129 [facility] Comment on above: Performed By: #### A ERIC, CBC, BMP, ADIFF, GFR #### [address] [address] Triglyceride [Mass/Vol] 151 mg/dL High 3-149 [facility] Comment on above: Performed By: #### A ERIC, CBC, BMP, ADIFF, GFR #### [address] [address] MGon 10-03-2024 Magnesium [Mass/Vol] 2.1 mg/dL Normal 1.6-2.4 [facility] Comment on above: Performed By: #### A ERIC, CBC, BMP, ADIFF, GFR #### [address] [address] .Auto Diffon 10-02-2024 Basophil, Absolute 0.0 10 3/mcL Normal 0.0-0.3 [facility] Comment on above: Performed By: #### A ERIC, CBC, BMP, ADIFF, GFR #### [address] [address] Basophils/100 WBC (Bld) 0.6 % Normal 0.0-2.5 [facility] Comment on above: Performed By: #### A ERIC, CBC, BMP, ADIFF, GFR #### [address] [address] Eosinophil, Absolute 0.1 10 3/mcL Normal 0.0-0.7 [facility] Comment on above: Performed By: #### A ERIC, CBC, BMP, ADIFF, GFR #### [address] [address] Eosinophils/100 WBC (Bld) 1.0 % Normal 0.0-6.0 [facility] Comment on above: Performed By: #### A ERIC, CBC, BMP, ADIFF, GFR #### [address] [address] Lymphocyte, Absolute 1.2 10 3/mcL Normal 0.9-4.3 [facility] Comment on above: Performed By: #### A ERIC, CBC, BMP, ADIFF, GFR #### [address] [address] Lymphocytes/100 WBC (Bld) 18.1 % Low 20.0-40.0 [facility] Comment on above: Performed By: #### A ERIC, CBC, BMP, ADIFF, GFR #### [address] [address] Monocyte, Absolute 0.7 10 3/mcL Normal 0.1-1.4 [facility] Comment on above: Performed By: #### A ERIC, CBC, BMP, ADIFF, GFR #### [address] [address] Monocytes/100 WBC (Bld) 10.0 % Normal 2.0-13.0 [facility] Comment on above: Performed By: #### A ERIC, CBC, BMP, ADIFF, GFR #### [address] [address] Neutrophils/100 WBC (Bld) 70.3 % Normal 50.0-75.0 [facility] Comment on above: Performed By: #### A ERIC, CBC, BMP, ADIFF, GFR #### [address] [address] Basophil, Absolute 0.1 10 3/mcL Normal 0.0-0.3 [facility] Comment on above: Performed By: #### A ERIC, MDW, BMP, MG, GFR, ADIFF, DIMER, CBC, PBNP, TROPHS #### [address] [address] Basophils/100 WBC (Bld) 0.8 % Normal 0.0-2.5 [facility] Comment on above: Performed By: #### A ERIC, MDW, BMP, MG, GFR, ADIFF, DIMER, CBC, PBNP, TROPHS #### [address] [address] Eosinophil, Absolute 0.1 10 3/mcL Normal 0.0-0.7 [facility] Comment on above: Performed By: #### A REIC, MDW, BMP, MG, GFR, ADIFF, DIMER, CBC, PBNP, TROPHS #### [address] [address] Eosinophils/100 WBC (Bld) 1.2 % Normal 0.0-6.0 [facility] Comment on above: Performed By: #### A ELY REYES, BMP, MG, GFR, ADIFF, DIMER, CBC, PBNP, TROPHS #### [address] [address] Lymphocyte, Absolute 1.4 10 3/mcL Normal 0.9-4.3 [facility] Comment on above: Performed By: #### A MD ERICW, BMP, MG, GFR, ADIFF, DIMER, CBC, PBNP, TROPHS #### [address] [address] Lymphocytes/100 WBC (Bld) 13.3 % Low 20.0-40.0 [facility] Comment on above: Performed By: #### A ELY REYES, BMP, MG, GFR, ADIFF, DIMER, CBC, PBNP, TROPHS #### [address] [address] Monocyte, Absolute 0.8 10 3/mcL Normal 0.1-1.4 [facility] Comment on above: Performed By: #### A ELY REYES, BMP, MG, GFR, ADIFF, DIMER, CBC, PBNP, TROPHS #### [address] [address] Monocytes/100 WBC (Bld) 7.6 % Normal 2.0-13.0 [facility] Comment on above: Performed By: #### A ELY REYES, BMP, MG, GFR, ADIFF, DIMER, CBC, PBNP, TROPHS #### [address] [address] Neutrophils/100 WBC (Bld) 77.1 % High 50.0-75.0 [facility] Comment on above: Performed By: #### A MD ERICW, BMP, MG, GFR, ADIFF, DIMER, CBC, PBNP, TROPHS #### [address] [address] .GFRon 10-02-2024 Estimated Glomerular Filtration Rate 110 ml/min/1.73sqm Normal [facility] Comment on above: Result Comment: Stages [...] A ERIC, CBC, BMP, ADIFF, GFR #### [facility] [address] [place] [address] Estimated Glomerular Filtration Rate 104 ml/min/1.73sqm [facility] Comment on above: Result Comment: Stages of [...] GFR, ADIFF, DIMER, CBC, PBNP, TROPHS #### [place] [id number] [place], [place] [address] .MDWon 10-02-2024 Monocyte Distribution Width 19.51 Normal 0.00-20.00 [facility] Comment on above: Result Comment: For ED adult patients suspected of sepsis, MDW<=20.0 does not rule out sepsis or risk of sepsis Performed By: #### A ERIC, MDW, BMP, MG, GFR, ADIFF, DIMER, CBC, PBNP, TROPHS #### [address] [address] .NEUABSon 10-02-2024 Neutrophil, Absolute 4.7 10 3/mcL Normal 2.3-8.1 [facility] Comment on above: Performed By: #### A ERIC, CBC, BMP, ADIFF, GFR #### [address] [address] Neutrophil, Absolute 8.4 10 3/mcL High 2.3-8.1 [facility] Comment on above: Performed By: #### A ERIC, MDW, BMP, MG, GFR, ADIFF, DIMER, CBC, PBNP, TROPHS #### [place] [address] APTTon 10-02-2024 aPTT Coag (Bld) [Time] 36.5 s High 25.0-35.0 [facility] Comment on above: Result Comment: For Heparin anticoagulation therapy, the recommended therapeutic range is: 54-77 seconds (APTT Correlation with Anti-Xa therapeutic range of 0.3-0.7 units/ml). PLEASE REFERENCE THE PHARMACY PROTOCOL FOR DOSING. Performed By: #### G FR, ABSGEL, ABOGEL, CMP #### [place] [address] aPTT Coag (Bld) [Time] 29.3 s Normal 25.0-35.0 [facility] Comment on above: Result Comment: For Heparin anticoagulation therapy, the recommended therapeutic range is: 54-77 seconds (APTT Correlation with Anti-Xa therapeutic range of 0.3-0.7 units/ml). PLEASE REFERENCE THE PHARMACY PROTOCOL FOR DOSING. Performed By: #### G FR, BMP, CBC, MG, ADIFF, ANEU #### [place] [id number] BMPon 10-02-2024 BUN/Creatinine Ratio 14 ratio Normal 7-27 [facility] Comment on above: Performed By: #### A ERIC, MDW, BMP, MG, GFR, ADIFF, DIMER, CBC, PBNP, TROPHS #### [place] [address] Calcium [Mass/Vol] 8.9 mg/dL Normal 8.4-10.2 [facility] Comment on above: Performed By: #### A ELY REYES, BMP, MG, GFR, ADIFF, DIMER, CBC, PBNP, TROPHS #### [address] [address] Chloride [Moles/Vol] 101 mmol/L Normal 98-107 [facility] Comment on above: Performed By: #### A ELY REYES, BMP, MG, GFR, ADIFF, DIMER, CBC, PBNP, TROPHS #### [address] [address] CO2 [Moles/Vol] 31 mmol/L High 22-29 [facility] Comment on above: Performed By: #### A ELY REYES, BMP, MG, GFR, ADIFF, DIMER, CBC, PBNP, TROPHS #### [address] [address] Creatinine [Mass/Vol] 0.85 mg/dL Normal 0.67-1.17 [facility] Comment on above: Performed By: #### A ELY REYES, JULIÁN, MG, GFR, ADIFF, DIMER, CBC, PBNP, TROPHS #### [address] [address] Electrolyte Balance 6.0 mEq/L Normal 4.0-15.0 [facility] Comment on above: Performed By: #### A ELY REYES, JULIÁN, MG, GFR, ADIFF, DIMER, CBC, PBNP, TROPHS #### [address] [address] Glucose [Mass/Vol] 157 mg/dL High 70-105 [facility] Comment on above: Performed By: #### A ELY REYES, BMP, MG, GFR, ADIFF, DIMER, CBC, PBNP, TROPHS #### [address] [address] Potassium [Moles/Vol] 3.1 mmol/L Low 3.5-5.1 [facility] Comment on above: Performed By: #### A ELY REYES, BMP, MG, GFR, ADIFF, DIMER, CBC, PBNP, TROPHS #### [address] [address] Sodium [Moles/Vol] 138 mmol/L Normal 136-145 [facility] Comment on above: Performed By: #### A MD ERICW, BMP, MG, GFR, ADIFF, DIMER, CBC, PBNP, TROPHS #### [address] [address] Urea nitrogen [Mass/Vol] 12 mg/dL Normal 7-18 [facility] Comment on above: Performed By: #### A ELY REYES, BMP, MG, GFR, ADIFF, DIMER, CBC, PBNP, TROPHS #### [address] [address] CAIONon 10-02-2024 Calcium Ionized 1.09 mmol/L Low 1.12-1.32 [facility] Comment on above: Performed By: #### A ERIC, CBC, BMP, ADIFF, GFR #### [address] [address] CBCon 10-02-2024 Erythrocyte distribution width (RBC) [Ratio] 16.6 % High 11.5-15.5 [facility] Comment on above: Performed By: #### A ERIC, CBC, BMP, ADIFF, GFR #### [address] [address] Hematocrit (Bld) [Volume fraction] 47.4 % Normal 40.0-52.0 [facility] Comment on above: Performed By: #### A ERIC, CBC, BMP, ADIFF, GFR #### [address] [address] Hgb 15.6 G/dL Normal 13.0-17.5 [facility] Comment on above: Performed By: #### A ERIC, CBC, BMP, ADIFF, GFR #### [address] [address] MCH (RBC) [Entitic mass] 28.7 pg Normal 27.0-33.0 [facility] Comment on above: Performed By: #### A ERIC, CBC, BMP, ADIFF, GFR #### [place] [address] MCHC 32.9 G/dL Normal 32.0-36.0 [facility] Comment on above: Performed By: #### A ERIC, CBC, BMP, ADIFF, GFR #### [place] [address] MCV (RBC) [Entitic vol] 87.2 fL Normal 81.0-100.0 [facility] Comment on above: Performed By: #### A ERIC, CBC, BMP, ADIFF, GFR #### [place] [address] Platelet 139 10 3/mcL Low 150-450 [facility] Comment on above: Performed By: #### A ERIC, CBC, BMP, ADIFF, GFR #### [place] [address] Platelet mean volume (Bld) [Entitic vol] 7.7 fL Normal 6.4-10.5 [facility] Comment on above: Performed By: #### A ERIC, CBC, BMP, ADIFF, GFR #### [place] [id number] RBC 5.44 10 6/mcL Normal 4.50-6.00 [facility] Comment on above: Performed By: #### A ERIC, CBC, BMP, ADIFF, GFR #### [place] [id number] WBC 6.6 10 3/mcL Normal 4.5-10.8 [facility] Comment on above: Performed By: #### A ERIC, CBC, BMP, ADIFF, GFR #### [place] [address] Erythrocyte distribution width (RBC) [Ratio] 16.6 % High 11.5-15.5 [facility] Comment on above: Performed By: #### A ERIC, MDW, BMP, MG, GFR, ADIFF, DIMER, CBC, PBNP, TROPHS #### [address] [address] Hematocrit (Bld) [Volume fraction] 51.4 % Normal 40.0-52.0 [facility] Comment on above: Performed By: #### A ELY REYES, BMP, MG, GFR, ADIFF, DIMER, CBC, PBNP, TROPHS #### [place] [address] Hgb 17.1 G/dL Normal 13.0-17.5 [facility] Comment on above: Performed By: #### A ELY REYES, BMP, MG, GFR, ADIFF, DIMER, CBC, PBNP, TROPHS #### [place] [address] MCH (RBC) [Entitic mass] 28.9 pg Normal 27.0-33.0 [facility] Comment on above: Performed By: #### A ELY REYES, JULIÁN, MG, GFR, ADIFF, DIMER, CBC, PBNP, TROPHS #### [place] [address] MCHC 33.3 G/dL Normal 32.0-36.0 [facility] Comment on above: Performed By: #### A ELY REYES, BMP, MG, GFR, ADIFF, DIMER, CBC, PBNP, TROPHS #### [place] [address] MCV (RBC) [Entitic vol] 86.7 fL Normal 81.0-100.0 [facility] Comment on above: Performed By: #### A ELY REYES, BMP, MG, GFR, ADIFF, DIMER, CBC, PBNP, TROPHS #### [place] [address] Platelet 199 10 3/mcL Normal 150-450 [facility] Comment on above: Performed By: #### A ELY REYES, BMP, MG, GFR, ADIFF, DIMER, CBC, PBNP, TROPHS #### [address] [address] Platelet mean volume (Bld) [Entitic vol] 7.3 fL Normal 6.4-10.5 [facility] Comment on above: Performed By: #### A ELY REYES, BMP, MG, GFR, ADIFF, DIMER, CBC, PBNP, TROPHS #### [address] [address] RBC 5.93 10 6/mcL Normal 4.50-6.00 [facility] Comment on above: Performed By: #### A ELY REYES, BMP, MG, GFR, ADIFF, DIMER, CBC, PBNP, TROPHS #### [address] [address] WBC 10.9 10 3/mcL High 4.5-10.8 [facility] Comment on above: Performed By: #### A ELY REYES, JULIÁN, MG, GFR, ADIFF, DIMER, CBC, PBNP, TROPHS #### [address] [address] CMPon 10-02-2024 Albumin Level 3.2 G/dL Normal 3.2-4.8 [facility] Comment on above: Performed By: #### A ERIC, CBC, BMP, ADIFF, GFR #### [address] [address] Albumin/Globulin [Mass ratio] 0.9 {ratio} Normal 0.9-1.6 [facility] Comment on above: Performed By: #### A ERIC, CBC, BMP, ADIFF, GFR #### [address] [address] ALP [Catalytic activity/Vol] 60 U/L Normal 38-126 [facility] Comment on above: Performed By: #### A ERIC, CBC, BMP, ADIFF, GFR #### [address] [address] ALT/SGPT <8 Low 12-55 [facility] Comment on above: Performed By: #### A ERIC, CBC, BMP, ADIFF, GFR #### [address] [address] AST [Catalytic activity/Vol] 15 U/L Normal 8-34 [facility] Comment on above: Performed By: #### A ERIC, CBC, BMP, ADIFF, GFR #### [place] [id number] Bili Total 0.60 mg/dL Normal 0.20-1.20 [facility] Comment on above: Result Comment: Use of this assay is not recommended for patients undergoing treatment with eltrombopag due to the potential for falsely elevated results. Performed By: #### A ERIC, CBC, BMP, ADIFF, GFR #### [place] [id number] BUN/Creatinine Ratio 15.5 ratio Normal 10.0-22.0 [facility] Comment on above: Performed By: #### A ERIC, CBC, BMP, ADIFF, GFR #### [place] [id number] Calcium [Mass/Vol] 8.4 mg/dL Low 8.7-10.4 [facility] Comment on above: Performed By: #### A ERIC, CBC, BMP, ADIFF, GFR #### [place] [id number] Chloride [Moles/Vol] 102 mmol/L Normal 98-110 [facility] Comment on above: Performed By: #### A ERIC, CBC, BMP, ADIFF, GFR #### [place] [id number] CO2 [Moles/Vol] 25 mmol/L Normal 22-32 [facility] Comment on above: Performed By: #### A ERIC, CBC, BMP, ADIFF, GFR #### [place] [id number] Creatinine [Mass/Vol] 0.71 mg/dL Normal 0.60-1.40 [facility] Comment on above: Result Comment: Test ing performed on frestyl analyzer using enzymatic creatinine methodology. Performed By: #### A ERIC, CBC, BMP, ADIFF, GFR #### [place] [id number] Electrolyte Balance 12.0 mEq/L Normal 4.0-15.0 [facility] Comment on above: Performed By: #### A ERIC, CBC, BMP, ADIFF, GFR #### [address] [address] Globulin 3.5 G/dL Normal 2.5-4.2 [facility] Comment on above: Performed By: #### A ERIC, CBC, BMP, ADIFF, GFR #### [address] [address] Glucose [Mass/Vol] 109 mg/dL Normal 70-110 [facility] Comment on above: Performed By: #### A ERIC, CBC, BMP, ADIFF, GFR #### [address] [address] Potassium [Moles/Vol] 3.5 mmol/L Normal 3.5-5.0 [facility] Comment on above: Performed By: #### A ERIC, CBC, BMP, ADIFF, GFR #### [address] [address] Sodium [Moles/Vol] 139 mmol/L Normal 136-145 [facility] Comment on above: Performed By: #### A ERIC, CBC, BMP, ADIFF, GFR #### [address] [address] Total Protein 6.7 G/dL Normal 5.7-8.2 [facility] Comment on above: Performed By: #### A ERIC, CBC, BMP, ADIFF, GFR #### [address] [address] Urea nitrogen [Mass/Vol] 11.0 mg/dL Normal 8.0-22.0 [facility] Comment on above: Performed By: #### A ERIC, CBC, BMP, ADIFF, GFR #### [address] [address] LABORATORYOrdered By: SYSTEM SYSTEM on 10-02-2024 aPTT [...] above: Interpretive Data: T esting performed on frestyl analyzer using enzymatic creatinine methodology. Electrolyte Balance [...] Filtration Rate 110 ml/min/1.73sqm Invalid Interpretation Code [facility] Comment on above: Interpretive Data: Stages [...] 3.5 G/dL Normal 2.5 - 4.2 G/dL [facility] SS Glucose [Mass/Vol] 109 mg/dL Normal 70 - 110 mg/dL [facility] SS Hematocrit (Bld) [Volume fraction] 47.4 % Normal 40.0 - 52.0 % [facility] Hemoglobin (Bld) [Mass/Vol] 15.6 G/dL Normal 13.0 - 17.5 G/dL [facility] Lymphocytes (Bld) [#/Vol] 1.2 103/mcL Normal 0.9 - 4.3 10^3/mcL [facility] Lymphocytes/100 WBC (Bld) 18.1 % Low 20.0 - 40.0 % [facility] Magnesium [Mass/Vol] 1.8 mg/dL Normal 1.6 - 2 .4 mg/dL [facility] SS MCH (RBC) [Entitic mass] 28.7 pg Normal 27.0 - 33.0 pg [facility] MCHC 32.9 G/dL Normal 32.0 - 36.0 G/dL [facility] SS MCV (RBC) [Entitic vol] 87.2 fL [...] Comment on above: Interpretive Data: T he [employer] (CHEST, 1992, [id number]) [...] ng/L Male: 0-54 ng/L Testing performed on [employer] analyzer using direct chemiluminescent technology. TSH Qn [...] ng/L Male: 0-76 ng/L Testing performed on [employer] using a homogeneous sandwich chemiluminescent immunoassay based on [employer] technology. Basophils (Bld) [#/Vol] 0.1 103/mcL Normal [...] Comment on above: Interpretive Data: Baljinder linn [employer] (CHEST, 1991, [id number]) [...] ng/L Male: 0-76 ng/L Testing performed on [employer] using a homogeneous sandwich chemiluminescent immunoassay based on [employer] technology. Urea nitrogen [Mass/Vol] 12 mg/dL Normal [...] 10-02-2024 Magnesium [Mass/Vol] 1.8 mg/dL Normal 1.6-2.4 [facility] Comment on above: Performed By: #### A ERIC, CBC, BMP, ADIFF, GFR #### [address] [address] Magnesium [Mass/Vol] 1.7 mg/dL Low 1.8-2.4 [facility] Comment on above: Performed By: #### A ELY REYES, BMP, MG, GFR, ADIFF, DIMER, CBC, PBNP, TROPHS #### [address] [address] PBNPon 10-02-2024 Natriuretic peptide B (Bld) [Mass/Vol] 2223 pg/mL High 0-900 [facility] Comment on above: Performed By: #### A ERIC, CBC, BMP, ADIFF, GFR #### [address] [address] Natriuretic peptide B (Bld) [Mass/Vol] 973 pg/mL High 0-125 [facility] Comment on above: Result Comment: NT-p roBNP results of less than 300 pg/mL effectively rules out acute congestive heart failure with 99% negative predictive value. Performed By: #### A MD ERICW, BMP, MG, GFR, ADIFF, DIMER, CBC, PBNP, TROPHS #### [address] [address] PHOSon 10-02-2024 Phosphate [Mass/Vol] 2.2 mg/dL Low 2.4-5.1 [facility] Comment on above: Result Comment: No te - New Reference Range in effect 19 Performed By: #### A ERIC, CBC, BMP, ADIFF, GFR #### [address] [address] PROon 10-02-2024 INR Coag (PPP) [Relative time] 1.2 {INR} Normal [facility] Comment on above: Result Comment: [employer] (CHEST, 1991, 102:312S-25S) recommended therapeutic range for oral anticoagulant therapy is: LOW RISK: Prophylaxis of venous thrombosis INR: 2.0-3.0 Treatment of pulmonary embolism 2.0-3.0 Prevention of systemic embolism 2.0-3.0 HIGH RISK: Mechanical prosthetic valves 2.5-3.5 Performed By: #### G FR, BMP, CBC, MG, ADIFF, ANEU #### [address] [address] PT Coag (PPP) [Time] 13.4 s Normal 9.0-14.4 [facility] Comment on above: Result Comment: Effe ctive 12/11/07, Protime results may be affected by some antibiotics (i.e. Ciprofloxacin, Azithromycin, Bactrim) which may potentiate the action of oral anticoagulants, with further increases in Protime/INR. Performed By: #### G FR, BMP, CBC, MG, ADIFF, ANEU #### [address] [address] PT Coag (PPP) [Time] 13.5 s Normal 9.0-14.4 [facility] Comment on above: Performed By: #### A ERIC, MDW, BMP, MG, GFR, ADIFF, DIMER, CBC, PBNP, TROPHS #### [facility] [address], [place] [address] PT International Ratio 1.2 Normal [facility] Comment on above: Result Comment: [employer] (CHEST, 1991, 102:312S-25S) recommended therapeutic range for oral anticoagulant therapy is: LOW RISK: Prophylaxis of venous thrombosis INR: 2.0-3.0 Treatment of pulmonary embolism 2.0-3.0 Prevention of systemic embolism 2.0-3.0 HIGH RISK: Mechanical prosthetic valves 2.5-3.5 Performed By: #### A ELY REYES, BMP, MG, GFR, ADIFF, DIMER, CBC, PBNP, TROPHS #### [address] [address] TROPHSon 10-02-2024 High Sensitivity Troponin I 6 ng/L Normal 0-54 [facility] Comment on above: Result Comment: High Sensitive Troponin I Reference Ranges: Female: 0-34 ng/L Male: 0-54 ng/L Testing performed on [employer] analyzer using direct chemiluminescent technology. Performed By: #### A ERIC, CBC, BMP, ADIFF, GFR #### [address] [address] High Sensitivity Troponin I 9 ng/L Normal 0-76 [facility] Comment on above: Result Comment: High Sensitive Troponin I Reference Ranges: Female: 0-51 ng/L Male: 0-76 ng/L Testing performed on [employer] using a homogeneous sandwich chemiluminescent immunoassay based on [employer] technology. Performed By: #### A ELY REYES, JULIÁN, MG, GFR, ADIFF, DIMER, CBC, PBNP, TROPHS #### [place] [address] High Sensitivity Troponin I 9 ng/L Normal 0-76 [facility] Comment on above: Result Comment: High Sensitive Troponin I Reference Ranges: Female: 0-51 ng/L Male: 0-76 ng/L Testing performed on [employer] using a homogeneous sandwich chemiluminescent immunoassay based on [employer] technology. Performed By: #### A ELY REYES, BMP, MG, GFR, ADIFF, DIMER, CBC, PBNP, TROPHS #### [address] [address] TSHon 10-02-2024 TSH 1.923 mIU/mL Normal 0.550-4.780 [facility] Comment on above: Performed By: #### A ERIC, CBC, BMP, ADIFF, GFR #### [address] [place] [address] XR CHEST 1 VIEWon 10-02-2024 XR CHEST [...] 10/02/2024 2:02:33 AM Ordering Provider: DELORES MURO [facility] XR ANKLE MINIMUM 3 VIEWS [...] 08/29/2024 3:52:38 PM Ordering Provider: EDER FARFAN [facility] XR CHEST 2 VIEWSon XR [...] 08/29/2024 4:51:29 PM Ordering Provider: GIRMA CORREA [facility] .Auto Diffon 08-13-2024 Basophil, Absolute 0.0 10 3/mcL Normal 0.0-0.2 [facility] Comment on above: Performed By: #### A ELY REYES, BMP, MG, GFR, ADIFF, DIMER, CBC, PBNP, TROPHS #### [address] [address] Basophils/100 WBC (Bld) 0.7 % Normal 0.0-2.5 [facility] Comment on above: Performed By: #### A MD ERICW, BMP, MG, GFR, ADIFF, DIMER, CBC, PBNP, TROPHS #### [address] [address] Eosinophil, Absolute 0.1 10 3/mcL Normal 0.0-0.7 [facility] Comment on above: Performed By: #### A ELY REYES, BMP, MG, GFR, ADIFF, DIMER, CBC, PBNP, TROPHS #### [address] [address] Eosinophils/100 WBC (Bld) 1.3 % Normal 0.0-7.0 [facility] Comment on above: Performed By: #### A ELY REYES, BMP, MG, GFR, ADIFF, DIMER, CBC, PBNP, TROPHS #### [address] [address] Lymphocyte, Absolute 0.8 10 3/mcL Low 0.9-4.3 [facility] Comment on above: Performed By: #### A ELY REYES, BMP, MG, GFR, ADIFF, DIMER, CBC, PBNP, TROPHS #### [address] [address] Lymphocytes/100 WBC (Bld) 19.9 % Low 20.0-40.0 [facility] Comment on above: Performed By: #### A ELY REYES, BMP, MG, GFR, ADIFF, DIMER, CBC, PBNP, TROPHS #### [address] [address] Monocyte, Absolute 0.3 10 3/mcL Normal 0.1-1.4 [facility] Comment on above: Performed By: #### A ELY REYES, BMP, MG, GFR, ADIFF, DIMER, CBC, PBNP, TROPHS #### [address] [address] Monocytes/100 WBC (Bld) 6.9 % Normal 2.0-13.0 [facility] Comment on above: Performed By: #### A ELY REYES, BMP, MG, GFR, ADIFF, DIMER, CBC, PBNP, TROPHS #### [address] [address] Neutrophils/100 WBC (Bld) 71.2 % Normal 50.0-75.0 [facility] Comment on above: Performed By: #### A ELY REYES, BMP, MG, GFR, ADIFF, DIMER, CBC, PBNP, TROPHS #### [address] [address] .GFRon 08-13-2024 Estimated Glomerular Filtration Rate 107 ml/min/1.73sqm Normal [facility] Comment on above: Result Comment: Stages [...] GFR, ADIFF, DIMER, CBC, PBNP, TROPHS #### [address] [address] .MDWon 08-13-2024 Monocyte Distribution Width 19.39 Normal 0.00-20.00 [facility] Comment on above: Result Comment: For ED adult patients suspected of sepsis, MDW<=20.0 does not rule out sepsis or risk of sepsis Performed By: #### A ELY REYES, BMP, MG, GFR, ADIFF, DIMER, CBC, PBNP, TROPHS #### [address] [address] .NEUABSon 08-13-2024 Neutrophil, Absolute 2.9 10 3/mcL Normal 2.3-8.1 [facility] Comment on above: Performed By: #### A ELY REYES, BMP, MG, GFR, ADIFF, DIMER, CBC, PBNP, TROPHS #### [address] [address] CBCon 03-18-2025 Erythrocyte distribution width (RBC) [Ratio] 17.1 % High 11.5-15.5 [facility] Comment on above: Performed By: #### A ELY REYES, BMP, MG, GFR, ADIFF, DIMER, CBC, PBNP, TROPHS #### [address] [address] Hematocrit (Bld) [Volume fraction] 42.8 % Normal 40.0-52.0 [facility] Comment on above: Performed By: #### A ELY REYES, BMP, MG, GFR, ADIFF, DIMER, CBC, PBNP, TROPHS #### [address] [address] Hgb 14.0 G/dL Normal 13.0-17.5 [facility] Comment on above: Performed By: #### A ELY REYES, JULIÁN, MG, GFR, ADIFF, DIMER, CBC, PBNP, TROPHS #### [address] [address] MCH (RBC) [Entitic mass] 27.9 pg Normal 27.0-33.0 [facility] Comment on above: Performed By: #### A ELY REYES, JULIÁN, MG, GFR, ADIFF, DIMER, CBC, PBNP, TROPHS #### [address] [address] MCHC 32.8 G/dL Normal 32.0-36.0 [facility] Comment on above: Performed By: #### A ELY REYES, BMP, MG, GFR, ADIFF, DIMER, CBC, PBNP, TROPHS #### [address] [address] MCV (RBC) [Entitic vol] 84.9 fL Normal 81.0-100.0 [facility] Comment on above: Performed By: #### A ELY REYES, BMP, MG, GFR, ADIFF, DIMER, CBC, PBNP, TROPHS #### [address] [address] Platelet 137 10 3/mcL Low 150-450 [facility] Comment on above: Performed By: #### A ELY REYES, BMP, MG, GFR, ADIFF, DIMER, CBC, PBNP, TROPHS #### [address] [address] Platelet mean volume (Bld) [Entitic vol] 6.7 fL Normal 6.4-10.5 [facility] Comment on above: Performed By: #### A ELY REYES, BMP, MG, GFR, ADIFF, DIMER, CBC, PBNP, TROPHS #### [address] [address] RBC 5.04 10 6/mcL Normal 4.50-6.00 [facility] Comment on above: Performed By: #### A ELY REYES, BMP, MG, GFR, ADIFF, DIMER, CBC, PBNP, TROPHS #### [address] [address] WBC 4.1 10 3/mcL Low 4.5-10.8 [facility] Comment on above: Performed By: #### A ELY REYES, JULIÁN, MG, GFR, ADIFF, DIMER, CBC, PBNP, TROPHS #### [address] [address] CMPon 08-13-2024 Albumin Level 3.3 G/dL Low 3.5-5.0 [facility] Comment on above: Performed By: #### A ELY REYES, JULIÁN, MG, GFR, ADIFF, DIMER, CBC, PBNP, TROPHS #### [address] [address] Albumin/Globulin [Mass ratio] 0.8 {ratio} Low 1.1-2.5 [facility] Comment on above: Performed By: #### A ELY REYES, JULIÁN, MG, GFR, ADIFF, DIMER, CBC, PBNP, TROPHS #### [address] [address] ALP [Catalytic activity/Vol] 76 U/L Normal 40-135 [facility] Comment on above: Performed By: #### A ERIC, MDW, BMP, MG, GFR, ADIFF, DIMER, CBC, PBNP, TROPHS #### [address] [address] ALT [Catalytic activity/Vol] 10 U/L Low 16-63 [facility] Comment on above: Performed By: #### A ELY REYES, BMP, MG, GFR, ADIFF, DIMER, CBC, PBNP, TROPHS #### [address] [address] AST [Catalytic activity/Vol] 14 U/L Normal 10-40 [facility] Comment on above: Performed By: #### A ELY REYES, BMP, MG, GFR, ADIFF, DIMER, CBC, PBNP, TROPHS #### [place] [address] Bili Total 0.4 mg/dL Normal 0.2-1.0 [facility] Comment on above: Result Comment: Use of this assay is not recommended for patients undergoing treatment with eltrombopag due to the potential for falsely elevated results. Performed By: #### A ELY REYES, BMP, MG, GFR, ADIFF, DIMER, CBC, PBNP, TROPHS #### [place] [address] BUN/Creatinine Ratio 13 ratio Normal 7-27 [facility] Comment on above: Performed By: #### A ELY REYES, BMP, MG, GFR, ADIFF, DIMER, CBC, PBNP, TROPHS #### [address] [address] Calcium [Mass/Vol] 8.6 mg/dL Normal 8.4-10.2 [facility] Comment on above: Performed By: #### A ELY REYES, BMP, MG, GFR, ADIFF, DIMER, CBC, PBNP, TROPHS #### [address] [address] Chloride [Moles/Vol] 101 mmol/L Normal 98-107 [facility] Comment on above: Performed By: #### A ELY REYES, BMP, MG, GFR, ADIFF, DIMER, CBC, PBNP, TROPHS #### [address] [address] CO2 [Moles/Vol] 35 mmol/L High 22-29 [facility] Comment on above: Performed By: #### A MD ERICW, BMP, MG, GFR, ADIFF, DIMER, CBC, PBNP, TROPHS #### [place] [id number] Creatinine [Mass/Vol] 0.78 mg/dL Normal 0.70-1.30 [facility] Comment on above: Result Comment: Test ing performed on [employer] Dimension EXL analyzer using a modified kinetic Ciera technique. Performed By: #### A ELY REYES, BMP, MG, GFR, ADIFF, DIMER, CBC, PBNP, TROPHS #### [place] [address] Electrolyte Balance 2.0 mEq/L Low 4.0-15.0 [facility] Comment on above: Performed By: #### A ELY REYES, BMP, MG, GFR, ADIFF, DIMER, CBC, PBNP, TROPHS #### [address] [address] Globulin 3.9 G/dL High 1.5-3.8 [facility] Comment on above: Performed By: #### A ELY REYES, BMP, MG, GFR, ADIFF, DIMER, CBC, PBNP, TROPHS #### [address] [address] Glucose [Mass/Vol] 105 mg/dL Normal 70-105 [facility] Comment on above: Performed By: #### A EYL REYES, BMP, MG, GFR, ADIFF, DIMER, CBC, PBNP, TROPHS #### [address] [address] Potassium [Moles/Vol] 3.8 mmol/L Normal 3.5-5.1 [facility] Comment on above: Performed By: #### A ELY REYES, BMP, MG, GFR, ADIFF, DIMER, CBC, PBNP, TROPHS #### [address] [address] Sodium [Moles/Vol] 138 mmol/L Normal 136-145 [facility] Comment on above: Performed By: #### A ELY REYES, BMP, MG, GFR, ADIFF, DIMER, CBC, PBNP, TROPHS #### [place] [address] Total Protein 7.2 G/dL Normal 6.4-8.2 [facility] Comment on above: Performed By: #### A ELY REYES, JULIÁN, MG, GFR, ADIFF, DIMER, CBC, PBNP, TROPHS #### [place] [address] Urea nitrogen [Mass/Vol] 10 mg/dL Normal 7-18 [facility] Comment on above: Performed By: #### A ELY REYES, BMP, MG, GFR, ADIFF, DIMER, CBC, PBNP, TROPHS #### [place] [address] CVFLURVon 08-13-2024 FLU A PCR Negative Normal Negative [facility] Comment on above: Performed By: #### C VFLURV #### [place] [address] FLU B PCR Negative Normal Negative [facility] Comment on above: Performed By: #### C VFLURV #### [place] [address] RSV PCR Negative Normal Negative [facility] Comment on above: Performed By: #### C VFLURV #### [place] [address] SARS-CoV-2 (COVID-19) RNA ROSE+probe Ql (Unsp spec) Negative Normal Negative [facility] Comment on above: Result Comment: Resu [...] results. Performed By: #### C VFLURV #### [address] [address] PBNPon 08-13-2024 Natriuretic peptide B (Bld) [Mass/Vol] 456 pg/mL High 0-125 [facility] Comment on above: Result Comment: NT-p roBNP results of less than 300 pg/mL effectively rules out acute congestive heart failure with 99% negative predictive value. Performed By: #### A ELY REYES, BMP, MG, GFR, ADIFF, DIMER, CBC, PBNP, TROPHS #### [address] [address] [facility] High Sensitivity Troponin I 8 ng/L Normal 0-76 [facility] Comment on above: Result Comment: High Sensitive Troponin I Reference Ranges: Female: 0-51 ng/L Male: 0-76 ng/L Testing performed on [employer] using a homogeneous sandwich chemiluminescent immunoassay based on [employer] technology. Performed By: #### A ELY REYES, BMP, MG, GFR, ADIFF, DIMER, CBC, PBNP, TROPHS #### [address] [address] XR CHEST 1 VIEWon 08-13-2024 XR CHEST [...] 08/13/2024 11:55:14 AM Ordering Provider: WILNER JOE [facility] .GFRon 05-14-2024 GFR Non- 90 ml/min/1.73sqm [facility] Comment on above: Result Comment: [...] GFR, ADIFF, DIMER, CBC, PBNP, TROPHS #### [address] [address] GFR 109 ml/min/1.73sqm [facility] Comment on above: Result Comment: [...] GFR, ADIFF, DIMER, CBC, PBNP, TROPHS #### [address] [address] A1Con 05-14-2024 Glucose [Mass/Vol] 120 mg/dL Normal [facility] Comment on above: Result Comment: Zahida mated Average Glucose calculated by equation ((28.7xA1C)-46.7) Estimated average glucose (eAG) is a calculated value from Hemoglobin A1C and is senior human resources representative of the average blood glucose level in the last 2-3 month period. Normal range: less than 114 mg/dL Performed By: #### A ELY REYES, BMP, MG, GFR, ADIFF, DIMER, CBC, PBNP, TROPHS #### [address] [address] HbA1c (Bld) [Mass fraction] 5.8 % Normal 4.3-6.4 [facility] Comment on above: Performed By: #### A ELY REYES, BMP, MG, GFR, ADIFF, DIMER, CBC, PBNP, TROPHS #### [address] [address] CMPon 05-14-2024 Albumin Level 3.4 G/dL Low 3.5-5.0 [facility] Comment on above: Performed By: #### A ELY REYES, BMP, MG, GFR, ADIFF, DIMER, CBC, PBNP, TROPHS #### [address] [address] Albumin/Globulin [Mass ratio] 0.9 {ratio} Low 1.1-2.5 [facility] Comment on above: Performed By: #### A ELY REYES, BMP, MG, GFR, ADIFF, DIMER, CBC, PBNP, TROPHS #### [address] [address] ALP [Catalytic activity/Vol] 87 U/L Normal 40-135 [facility] Comment on above: Performed By: #### A ELY REYES, BMP, MG, GFR, ADIFF, DIMER, CBC, PBNP, TROPHS #### [address] [address] ALT [Catalytic activity/Vol] 17 U/L Normal 16-63 [facility] Comment on above: Performed By: #### A ELY REYES, BMP, MG, GFR, ADIFF, DIMER, CBC, PBNP, TROPHS #### [address] [address] AST [Catalytic activity/Vol] 12 U/L Normal 10-40 [facility] Comment on above: Performed By: #### A ELY REYES, BMP, MG, GFR, ADIFF, DIMER, CBC, PBNP, TROPHS #### [place] [address] Bili Total 0.3 mg/dL Normal 0.2-1.0 [facility] Comment on above: Result Comment: Use of this assay is not recommended for patients undergoing treatment with eltrombopag due to the potential for falsely elevated results. Performed By: #### A ELY REYES, JULIÁN, MG, GFR, ADIFF, DIMER, CBC, PBNP, TROPHS #### [address] [address] BUN/Creatinine Ratio 15 ratio Normal 7-27 [facility] Comment on above: Performed By: #### A ELY REYES, BMP, MG, GFR, ADIFF, DIMER, CBC, PBNP, TROPHS #### [address] [address] Calcium [Mass/Vol] 8.9 mg/dL Normal 8.4-10.2 [facility] Comment on above: Performed By: #### A ELY REYES, BMP, MG, GFR, ADIFF, DIMER, CBC, PBNP, TROPHS #### [address] [address] Chloride [Moles/Vol] 101 mmol/L Normal 98-107 [facility] Comment on above: Performed By: #### A ELY REYES, JULIÁN, MG, GFR, ADIFF, DIMER, CBC, PBNP, TROPHS #### [address] [address] CO2 [Moles/Vol] 34 mmol/L High 22-29 [facility] Comment on above: Performed By: #### A ELY REYES, BMP, MG, GFR, ADIFF, DIMER, CBC, PBNP, TROPHS #### [address] [address] Creatinine [Mass/Vol] 0.89 mg/dL Normal 0.70-1.30 [facility] Comment on above: Result Comment: Test ing performed on [employer] Dimension EXL analyzer using a modified kinetic Ciera technique. Performed By: #### A ELY REYES, JULIÁN, MG, GFR, ADIFF, DIMER, CBC, PBNP, TROPHS #### [address] [address] Electrolyte Balance 5.0 mEq/L Normal 4.0-15.0 [facility] Comment on above: Performed By: #### A ELY REYES, JULIÁN, MG, GFR, ADIFF, DIMER, CBC, PBNP, TROPHS #### [address] [address] Globulin 3.8 G/dL Normal [facility] Comment on above: Performed By: #### A ELY REYES, JULIÁN, MG, GFR, ADIFF, DIMER, CBC, PBNP, TROPHS #### [address] [address] Glucose [Mass/Vol] 99 mg/dL Normal 70-105 [facility] Comment on above: Performed By: #### A ELY REYES, JULIÁN, MG, GFR, ADIFF, DIMER, CBC, PBNP, TROPHS #### [address] [address] Potassium [Moles/Vol] 4.0 mmol/L Normal 3.5-5.1 [facility] Comment on above: Performed By: #### A ELY REYES, BMP, MG, GFR, ADIFF, DIMER, CBC, PBNP, TROPHS #### [address] [address] Sodium [Moles/Vol] 140 mmol/L Normal 136-145 [facility] Comment on above: Performed By: #### A ELY REYES, BMP, MG, GFR, ADIFF, DIMER, CBC, PBNP, TROPHS #### [address] [address] Total Protein 7.2 G/dL Normal 6.4-8.2 [facility] Comment on above: Performed By: #### A ELY REYES, JULIÁN, MG, GFR, ADIFF, DIMER, CBC, PBNP, TROPHS #### [address] [address] Urea nitrogen [Mass/Vol] 13 mg/dL Normal 7-18 [facility] Comment on above: Performed By: #### A ELY REYES, JULIÁN, MG, GFR, ADIFF, DIMER, CBC, PBNP, TROPHS #### [address] [address] LABORATORYOrdered By: SYSTEM SYSTEM on 05-14-2024 Albumin [...] calculated value from Hemoglobin A1C and is senior human resources representative of the average blood glucose level [...] 05-14-2024 Cholesterol [Mass/Vol] 144 mg/dL Normal 0-200 [facility] Comment on above: Result Comment: Chol esterol Reference Interval: Less than 200 Desirable 200-239 Borderline high risk 240 and above High risk Performed By: #### A ELY REYES, BMP, MG, GFR, ADIFF, DIMER, CBC, PBNP, TROPHS #### [address] [address] Cholesterol in HDL [Mass/Vol] 24 mg/dL Low 40-60 [facility] Comment on above: Performed By: #### A ELY REYES, BMP, MG, GFR, ADIFF, DIMER, CBC, PBNP, TROPHS #### [address] [address] Cholesterol in LDL [Mass/Vol] 72 mg/dL Normal 0-130 [facility] Comment on above: Performed By: #### A ELY REYES, BMP, MG, GFR, ADIFF, DIMER, CBC, PBNP, TROPHS #### [address] [address] Triglyceride [Mass/Vol] 242 mg/dL High 0-150 [facility] Comment on above: Result Comment: Trig lyceride Reference Interval: Less than 150 Normal 150-199 Borderline high risk 200-499 High risk 500 or higher Very high risk Performed By: #### A ELY REYES, JULIÁN, MG, GFR, ADIFF, DIMER, CBC, PBNP, TROPHS #### [address] [address] Final Surgical Pathology [facility] 03-27-2024 Final Surgical Pathology Report . Pathology Reports Accession: Collected Date/Time: Received Date/Time: Pathologist: [id number] 03/25/2024 15:47 EDT 03/26/2024 07:38 EDT BEAU WILBURN MD Final Surgical Pathology Report DIAGNOSIS: RIGHT ARM EXCISION: - GLOMANGIOMYOMA CLINICAL INFORMATION: SKIN LESION Procedure: EXCISION Preoperative diagnosis: SKIN LESION Postoperative diagnosis: SKIN LESION SPECIMEN: A RIGHT ARM GROSS DESCRIPTION: All parts labelled with patient name and [id number] Received in formalin labelled right arm excision Is a unoriented ellipse of skin measuring 1.5 x 0.4 and excised to depth of 1.2 cm. Excision margin inked black. Skin surface grossly unremarkable, located within the underlying soft tissue is a santillan firm well-circumscribed possible mass/lymph node measuring 0.6 x 0.6 x 0.6 cm. TS-2 Austin Somers, Pathologists' Securities Broker (ASCP) Performed by [facility] MICROSCOPIC DESCRIPTION: The microscopic examination is performed, except in the case of Gross Only. Electronically Signed by Pathology Report verified by [facility] BEAU FORRESTERTU Sign out Date: 03/27/2024 16:10 Performing Lab: [facility], [address] [place] [address] Pathology Dept Disclaimer If ancillary studies were utilized, the following Laboratory Developed Test (LDT) disclaimer will apply: Under CLIA requirements, [facility] is qualified to perform high complexity testing. For all ancillary stains, positive and negative controls stain appropriately. Performance characteristics of immunohistochemical and chromogenic in-situ hybridization tests have been determined by [facility]. These tests are used for clinical purposes, They should not be regarded as investigational or for research. Normal [facility] US SOFT TISSUE MASS OF RT [...] 11:09:23 AM Ordering Provider: GIRMA CORREA Normal [facility] TSHon 02-15-2024 TSH Qn 1.65 m[IU]/L Normal 0.36-3.74 [facility] Comment on above: Performed By: #### A ELY REYES, JULIÁN, MG, GFR, ADIFF, DIMER, CBC, PBNP, TROPHS #### [address] [address] .GFRon 02-12-2024 GFR 95 ml/min/1.73sqm [facility] Comment on above: Result Comment: [...] GFR, ADIFF, DIMER, CBC, PBNP, TROPHS #### [address] [address] GFR Non- 78 ml/min/1.73sqm [facility] Comment on above: Result Comment: [...] GFR, ADIFF, DIMER, CBC, PBNP, TROPHS #### [address] [address] A1Con 02-12-2024 Glucose [Mass/Vol] 131 mg/dL Normal [facility] Comment on above: Result Comment: Zahida mated Average Glucose calculated by equation ((28.7xA1C)-46.7) Estimated average glucose (eAG) is a calculated value from Hemoglobin A1C and is senior human resources representative of the average blood glucose level in the last 2-3 month period. Normal range: less than 114 mg/dL Performed By: #### A ELY REYES, BMP, MG, GFR, ADIFF, DIMER, CBC, PBNP, TROPHS #### [address] [address] HbA1c (Bld) [Mass fraction] 6.2 % Normal 4.3-6.4 [facility] Comment on above: Performed By: #### A ELY REYES, BMP, MG, GFR, ADIFF, DIMER, CBC, PBNP, TROPHS #### [address] [address] CMPon 02-12-2024 Albumin Level 3.3 G/dL Low 3.5-5.0 [facility] Comment on above: Performed By: #### A ELY REYES, BMP, MG, GFR, ADIFF, DIMER, CBC, PBNP, TROPHS #### [address] [address] Albumin/Globulin [Mass ratio] 0.9 {ratio} Low 1.1-2.5 [facility] Comment on above: Performed By: #### A ELY REYES, BMP, MG, GFR, ADIFF, DIMER, CBC, PBNP, TROPHS #### [address] [address] ALP [Catalytic activity/Vol] 74 U/L Normal 40-135 [facility] Comment on above: Performed By: #### A ELY REYES, BMP, MG, GFR, ADIFF, DIMER, CBC, PBNP, TROPHS #### [address] [address] ALT [Catalytic activity/Vol] 20 U/L Normal 16-63 [facility] Comment on above: Performed By: #### A ELY REYES, BMP, MG, GFR, ADIFF, DIMER, CBC, PBNP, TROPHS #### [address] [address] AST [Catalytic activity/Vol] 13 U/L Normal 10-40 [facility] Comment on above: Performed By: #### A ELY REYES, BMP, MG, GFR, ADIFF, DIMER, CBC, PBNP, TROPHS #### [address] [address] Bili Total 0.5 mg/dL Normal 0.2-1.0 [facility] Comment on above: Result Comment: Use of this assay is not recommended for patients undergoing treatment with eltrombopag due to the potential for falsely elevated results. Performed By: #### A ELY REYES, BMP, MG, GFR, ADIFF, DIMER, CBC, PBNP, TROPHS #### [address] [address] BUN/Creatinine Ratio 6 ratio Low 7-27 [facility] Comment on above: Performed By: #### A ELY REYES, BMP, MG, GFR, ADIFF, DIMER, CBC, PBNP, TROPHS #### [address] [id number] Calcium [Mass/Vol] 8.5 mg/dL Normal 8.4-10.2 [facility] Comment on above: Performed By: #### A ELY REYES, BMP, MG, GFR, ADIFF, DIMER, CBC, PBNP, TROPHS #### [address] [address] Chloride [Moles/Vol] 100 mmol/L Normal 98-107 [facility] Comment on above: Performed By: #### A MD ERICW, BMP, MG, GFR, ADIFF, DIMER, CBC, PBNP, TROPHS #### [address] [address] CO2 [Moles/Vol] 34 mmol/L High 22-29 [facility] Comment on above: Performed By: #### A ELY REYES, BMP, MG, GFR, ADIFF, DIMER, CBC, PBNP, TROPHS #### [address] [address] Creatinine [Mass/Vol] 1.00 mg/dL Normal 0.70-1.30 [facility] Comment on above: Result Comment: Test ing performed on Siemens Dimension EXL analyzer using a modified kinetic Ciera technique. Performed By: #### A ELY REYES, BMP, MG, GFR, ADIFF, DIMER, CBC, PBNP, TROPHS #### [address] [address] Electrolyte Balance 4.0 mEq/L Normal 4.0-15.0 [facility] Comment on above: Performed By: #### A ELY REYES, BMP, MG, GFR, ADIFF, DIMER, CBC, PBNP, TROPHS #### [address] [address] Globulin 3.8 G/dL Normal [facility] Comment on above: Performed By: #### A ELY REYES, BMP, MG, GFR, ADIFF, DIMER, CBC, PBNP, TROPHS #### [address] [address] Glucose [Mass/Vol] 80 mg/dL Normal 70-105 [facility] Comment on above: Performed By: #### A ELY REYES, BMP, MG, GFR, ADIFF, DIMER, CBC, PBNP, TROPHS #### [address] [address] Potassium [Moles/Vol] 4.3 mmol/L Normal 3.5-5.1 [facility] Comment on above: Performed By: #### A ELY REYES, BMP, MG, GFR, ADIFF, DIMER, CBC, PBNP, TROPHS #### [address] [address] Sodium [Moles/Vol] 138 mmol/L Normal 136-145 [facility] Comment on above: Performed By: #### A ELY REYES, BMP, MG, GFR, ADIFF, DIMER, CBC, PBNP, TROPHS #### [place] [id number] [place], [place] [address] Total Protein 7.1 G/dL Normal 6.4-8.2 [facility] Comment on above: Performed By: #### A ELY REYES, JULIÁN, MG, GFR, ADIFF, DIMER, CBC, PBNP, TROPHS #### [place] [id number] Urea nitrogen [Mass/Vol] 6 mg/dL Low 7-18 [facility] Comment on above: Performed By: #### A ELY REYES, JULIÁN, MG, GFR, ADIFF, DIMER, CBC, PBNP, TROPHS #### [address] [address] LABORATORYOrdered By: SYSTEM SYSTEM on 02-12-2024 Albumin [...] calculated value from Hemoglobin A1C and is senior human resources representative of the average blood glucose level [...] 02-12-2024 Cholesterol [Mass/Vol] 117 mg/dL Normal 0-200 [facility] Comment on above: Result Comment: Chol esterol Reference Interval: Less than 200 Desirable 200-239 Borderline high risk 240 and above High risk Performed By: #### A ERIC, ELY, BMP, MG, GFR, ADIFF, DIMER, CBC, PBNP, TROPHS #### [address] [address] Cholesterol in HDL [Mass/Vol] 25 mg/dL Low 40-60 [facility] Comment on above: Performed By: #### A ELY REYES, BMP, MG, GFR, ADIFF, DIMER, CBC, PBNP, TROPHS #### [address] [address] Cholesterol in LDL [Mass/Vol] 53 mg/dL Normal 0-130 [facility] Comment on above: Performed By: #### A ELY REYES, BMP, MG, GFR, ADIFF, DIMER, CBC, PBNP, TROPHS #### [address] [address] Triglyceride [Mass/Vol] 196 mg/dL High 0-150 [facility] Comment on above: Result Comment: Trig lyceride Reference Interval: Less than 150 Normal 150-199 Borderline high risk 200-499 High risk 500 or higher Very high risk Performed By: #### A ELY REYES, BMP, MG, GFR, ADIFF, DIMER, CBC, PBNP, TROPHS #### [address] [address] PSAon 02-12-2024 Prostate Specific Antigen 0.25 ng/mL Normal 0.00-4.00 [facility] Comment on above: Performed By: #### A ELY REYES, BMP, MG, GFR, ADIFF, DIMER, CBC, PBNP, TROPHS #### [address] [address] .Auto Diffon 02-01-2024 Basophil, Absolute 0.1 10 3/mcL Normal 0.0-0.3 [facility] ([place] Comment on above: Performed By: #### A DIFF, TROPHS, GFR, BMP, MDW, CBC, PBNP, ANEU #### [address] [address] Basophils/100 WBC (Bld) 0.8 % Normal 0.0-2.5 [facility] ([place]) Comment on above: Performed By: #### A DIFF, TROPHS, GFR, BMP, MDW, CBC, PBNP, ANEU #### [address] [address] Eosinophil, Absolute 0.1 10 3/mcL Normal 0.0-0.7 [facility] ([place]) Comment on above: Performed By: #### A DIFF, TROPHS, GFR, BMP, MDW, CBC, PBNP, ANEU #### [address] [address] Eosinophils/100 WBC (Bld) 1.2 % Normal 0.0-6.0 [facility] ([place]) Comment on above: Performed By: #### A DIFF, TROPHS, GFR, BMP, MDW, CBC, PBNP, ANEU #### [address] [address] Lymphocyte, Absolute 1.4 10 3/mcL Normal 0.9-4.3 [facility] ([place] Comment on above: Performed By: #### A DIFF, TROPHS, GFR, BMP, MDW, CBC, PBNP, ANEU #### [address] [address] Lymphocytes/100 WBC (Bld) 19.9 % Low 20.0-40.0 [facility] ([place] Comment on above: Performed By: #### A DIFF, TROPHS, GFR, BMP, MDW, CBC, PBNP, ANEU #### [address] [address] Monocyte, Absolute 0.7 10 3/mcL Normal 0.1-1.4 [facility] ([place] Comment on above: Performed By: #### A DIFF, TROPHS, GFR, BMP, MDW, CBC, PBNP, ANEU #### [address] [address] Monocytes/100 WBC (Bld) 9.4 % Normal 2.0-13.0 [facility] ([place] Comment on above: Performed By: #### A DIFF, TROPHS, GFR, BMP, MDW, CBC, PBNP, ANEU #### [address] [address] Neutrophils/100 WBC (Bld) 68.7 % Normal 50.0-75.0 [facility] ([place]) Comment on above: Performed By: #### A DIFF, TROPHS, GFR, BMP, MDW, CBC, PBNP, ANEU #### [address] [address] .GFRon 02-01-2024 GFR >60 Normal [facility] ([place] Comment on above: Result Comment: GFR Population [...] GFR, BMP, MDW, CBC, PBNP, ANEU #### [address] [address] GFR Non- >60 Normal [facility] ([place] Comment on above: Result Comment: GFR Population [...] GFR, BMP, MDW, CBC, PBNP, ANEU #### [address] [address] .NEUABSon 02-01-2024 Neutrophil, Absolute 4.8 10 3/mcL Normal 2.3-8.1 [facility] ([place] Comment on above: Performed By: #### A DIFF, TROPHS, GFR, BMP, MDW, CBC, PBNP, ANEU #### [address] [address] APTTon 02-01-2024 aPTT Coag (Bld) [Time] 47.1 s High 25.0-35.0 [facility] ([place] Comment on above: Result Comment: For Heparin anticoagulation therapy, the recommended therapeutic range is: 54-77 seconds (APTT Correlation with Anti-Xa therapeutic range of 0.3-0.7 units/ml). PLEASE REFERENCE THE PHARMACY PROTOCOL FOR DOSING. Performed By: #### A DIFF, TROPHS, GFR, BMP, MDW, CBC, PBNP, ANEU #### [address] [address] aPTT Coag (Bld) [Time] 46.1 s High 25.0-35.0 [facility] ([place] Comment on above: Result Comment: For Heparin anticoagulation therapy, the recommended therapeutic range is: 54-77 seconds (APTT Correlation with Anti-Xa therapeutic range of 0.3-0.7 units/ml). PLEASE REFERENCE THE PHARMACY PROTOCOL FOR DOSING. Performed By: #### A DIFF, TROPHS, GFR, BMP, MDW, CBC, PBNP, ANEU #### [address] [address] BMPon 02-01-2024 BUN/Creatinine Ratio 14.8 ratio Normal 10.0-22.0 [facility] ([place] Comment on above: Performed By: #### A DIFF, TROPHS, GFR, BMP, MDW, CBC, PBNP, ANEU #### [address] [address] Calcium [Mass/Vol] 8.8 mg/dL Normal 8.7-10.4 [facility] ([place]) Comment on above: Performed By: #### A DIFF, TROPHS, GFR, BMP, MDW, CBC, PBNP, ANEU #### [address] [address] Chloride [Moles/Vol] 100 mmol/L Normal 98-110 [facility] ([place] Comment on above: Performed By: #### A DIFF, TROPHS, GFR, BMP, MDW, CBC, PBNP, ANEU #### [address] [address] CO2 [Moles/Vol] 32 mmol/L Normal 22-32 [facility] ([place]) Comment on above: Performed By: #### A DIFF, TROPHS, GFR, BMP, MDW, CBC, PBNP, ANEU #### [address] [address] Creatinine [Mass/Vol] 1.15 mg/dL Normal 0.60-1.40 [facility] ([place]) Comment on above: Result Comment: Test ing performed on frestyl analyzer using enzymatic creatinine methodology. Performed By: #### A DIFF, TROPHS, GFR, BMP, MDW, CBC, PBNP, ANEU #### [address] [address] Electrolyte Balance 5.0 mEq/L Normal 4.0-15.0 [facility] ([place]) Comment on above: Performed By: #### A DIFF, TROPHS, GFR, BMP, MDW, CBC, PBNP, ANEU #### [address] [address] Glucose [Mass/Vol] 124 mg/dL High 70-110 [facility] ([place]) Comment on above: Performed By: #### A DIFF, TROPHS, GFR, BMP, MDW, CBC, PBNP, ANEU #### [address] [address] Potassium [Moles/Vol] 3.4 mmol/L Low 3.5-5.0 [facility] ([place]) Comment on above: Performed By: #### A DIFF, TROPHS, GFR, BMP, MDW, CBC, PBNP, ANEU #### [address] [address] Sodium [Moles/Vol] 137 mmol/L Normal 136-145 [facility] ([place]) Comment on above: Performed By: #### A DIFF, TROPHS, GFR, BMP, MDW, CBC, PBNP, ANEU #### [address] [address] Urea nitrogen [Mass/Vol] 17.0 mg/dL Normal 8.0-22.0 [facility] ([place]) Comment on above: Performed By: #### A DIFF, TROPHS, GFR, BMP, MDW, CBC, PBNP, ANEU #### [address] [address] CBCon 02-01-2024 Erythrocyte distribution width (RBC) [Ratio] 16.2 % High 11.5-15.5 [facility] ([place]) Comment on above: Performed By: #### A DIFF, TROPHS, GFR, BMP, MDW, CBC, PBNP, ANEU #### [address] [address] Hematocrit (Bld) [Volume fraction] 40.5 % Normal 40.0-52.0 [facility] ([place] Comment on above: Performed By: #### A DIFF, TROPHS, GFR, BMP, MDW, CBC, PBNP, ANEU #### [address] [address] Hgb 13.0 G/dL Normal 13.0-17.5 [facility] ([place]) Comment on above: Performed By: #### A DIFF, TROPHS, GFR, BMP, MDW, CBC, PBNP, ANEU #### [address] [address] MCH (RBC) [Entitic mass] 26.0 pg Low 27.0-33.0 [facility] ([place]) Comment on above: Performed By: #### A DIFF, TROPHS, GFR, BMP, MDW, CBC, PBNP, ANEU #### [address] [address] MCHC 32.2 G/dL Normal 32.0-36.0 [facility] ([place]) Comment on above: Performed By: #### A DIFF, TROPHS, GFR, BMP, MDW, CBC, PBNP, ANEU #### [address] [address] MCV (RBC) [Entitic vol] 80.6 fL Low 81.0-100.0 A [facility] ([place]) Comment on above: Performed By: #### A DIFF, TROPHS, GFR, BMP, MDW, CBC, PBNP, ANEU #### [address] [address] Platelet 161 10 3/mcL Normal 150-450 [facility] ([place]) Comment on above: Performed By: #### A DIFF, TROPHS, GFR, BMP, MDW, CBC, PBNP, ANEU #### [address] [address] Platelet mean volume (Bld) [Entitic vol] 6.8 fL Normal 6.4-10.5 [facility] ([place]) Comment on above: Performed By: #### A DIFF, TROPHS, GFR, BMP, MDW, CBC, PBNP, ANEU #### [address] [address] RBC 5.02 10 6/mcL Normal 4.50-6.00 [facility] ([place]) Comment on above: Performed By: #### A DIFF, TROPHS, GFR, BMP, MDW, CBC, PBNP, ANEU #### [address] [address] WBC 6.9 10 3/mcL Normal 4.5-10.8 [facility] ([place]) Comment on above: Performed By: #### A DIFF, TROPHS, GFR, BMP, MDW, CBC, PBNP, ANEU #### [address] [address] LABORATORYOrdered By: SYSTEM SYSTEM on 02-01-2024 aPTT [...] above: Interpretive Data: T esting performed on frestyl analyzer using enzymatic creatinine methodology. Electrolyte Balance [...] 02-01-2024 Magnesium [Mass/Vol] 2.2 mg/dL Normal 1.6-2.4 [facility] ([place] Comment on above: Performed By: #### A DIFF, TROPHS, GFR, BMP, MDW, CBC, PBNP, ANEU #### [place] [address] .Auto Diffon 01-31-2024 Basophil, Absolute 0.1 10 3/mcL Normal 0.0-0.3 [facility] ([place] Comment on above: Performed By: #### A DIFF, TROPHS, GFR, BMP, MDW, CBC, PBNP, ANEU #### [address] [address] Basophils/100 WBC (Bld) 1.0 % Normal 0.0-2.5 A [facility] ([place] Comment on above: Performed By: #### A DIFF, TROPHS, GFR, BMP, MDW, CBC, PBNP, ANEU #### [address] [address] Eosinophil, Absolute 0.1 10 3/mcL Normal 0.0-0.7 [facility] ([place] Comment on above: Performed By: #### A DIFF, TROPHS, GFR, BMP, MDW, CBC, PBNP, ANEU #### [address] [address] Eosinophils/100 WBC (Bld) 1.1 % Normal 0.0-6.0 [facility] ([place]) Comment on above: Performed By: #### A DIFF, TROPHS, GFR, BMP, MDW, CBC, PBNP, ANEU #### [address] [address] Lymphocyte, Absolute 3.0 10 3/mcL Normal 0.9-4.3 [facility] ([place] Comment on above: Performed By: #### A DIFF, TROPHS, GFR, BMP, MDW, CBC, PBNP, ANEU #### [address] [address] Lymphocytes/100 WBC (Bld) 22.7 % Normal 20.0-40.0 [facility] ([place] Comment on above: Performed By: #### A DIFF, TROPHS, GFR, BMP, MDW, CBC, PBNP, ANEU #### [address] [address] Monocyte, Absolute 1.4 10 3/mcL Normal 0.1-1.4 [facility] ([place] Comment on above: Performed By: #### A DIFF, TROPHS, GFR, BMP, MDW, CBC, PBNP, ANEU #### [address] [address] Monocytes/100 WBC (Bld) 11.0 % Normal 2.0-13.0 A [facility] ([place] Comment on above: Performed By: #### A DIFF, TROPHS, GFR, BMP, MDW, CBC, PBNP, ANEU #### [address] [address] Neutrophils/100 WBC (Bld) 64.2 % Normal 50.0-75.0 [facility] ([place]) Comment on above: Performed By: #### A DIFF, TROPHS, GFR, BMP, MDW, CBC, PBNP, ANEU #### [address] [address] .GFRon 01-31-2024 GFR 46 ml/min/1.73sqm Normal [facility] ([place]) Comment on above: Result Comment: GFR Population [...] GFR, BMP, MDW, CBC, PBNP, ANEU #### [address] [address] GFR Non- 38 ml/min/1.73sqm Normal [facility] ([place]) Comment on above: Result Comment: GFR Population [...] GFR, BMP, MDW, CBC, PBNP, ANEU #### [address] [address] .NEUABSon 01-31-2024 Neutrophil, Absolute 8.5 10 3/mcL High 2.3-8.1 [facility] ([place]) Comment on above: Performed By: #### A DIFF, TROPHS, GFR, BMP, MDW, CBC, PBNP, ANEU #### [address] [address] APTTon 01-31-2024 aPTT Coag (Bld) [Time] 34.5 s Normal 25.0-35.0 [facility] ([place] Comment on above: Result Comment: For Heparin anticoagulation therapy, the recommended therapeutic range is: 54-77 seconds (APTT Correlation with Anti-Xa therapeutic range of 0.3-0.7 units/ml). PLEASE REFERENCE THE PHARMACY PROTOCOL FOR DOSING. Performed By: #### A DIFF, TROPHS, GFR, BMP, MDW, CBC, PBNP, ANEU #### [address] [address] aPTT Coag (Bld) [Time] 33.9 s Normal 25.0-35.0 [facility] ([place] Comment on above: Result Comment: For Heparin anticoagulation therapy, the recommended therapeutic range is: 54-77 seconds (APTT Correlation with Anti-Xa therapeutic range of 0.3-0.7 units/ml). PLEASE REFERENCE THE PHARMACY PROTOCOL FOR DOSING. Performed By: #### A DIFF, TROPHS, GFR, BMP, MDW, CBC, PBNP, ANEU #### [address] [address] aPTT Coag (Bld) [Time] 26.2 s Normal 25.0-35.0 [facility] ([place] Comment on above: Result Comment: For Heparin anticoagulation therapy, the recommended therapeutic range is: 54-77 seconds (APTT Correlation with Anti-Xa therapeutic range of 0.3-0.7 units/ml). PLEASE REFERENCE THE PHARMACY PROTOCOL FOR DOSING. Performed By: #### A DIFF, TROPHS, GFR, BMP, MDW, CBC, PBNP, ANEU #### [address] [address] CAIONon 01-31-2024 Calcium Ionized 1.07 mmol/L Low 1.12-1.32 [facility] ([place]) Comment on above: Performed By: #### T ROPHS, CMP, CAION, LAC, CBC, ADIFF, GFR, PHOS, MG, ANEU #### [place] [address] CBCon 01-31-2024 Erythrocyte distribution width (RBC) [Ratio] 16.3 % High 11.5-15.5 [facility] ([place]) Comment on above: Performed By: #### A DIFF, TROPHS, GFR, BMP, MDW, CBC, PBNP, ANEU #### [address] [address] Hematocrit (Bld) [Volume fraction] 42.8 % Normal 40.0-52.0 [facility] ([place]) Comment on above: Performed By: #### A DIFF, TROPHS, GFR, BMP, MDW, CBC, PBNP, ANEU #### [address] [address] Hgb 14.0 G/dL Normal 13.0-17.5 [facility] ([place]) Comment on above: Performed By: #### A DIFF, TROPHS, GFR, BMP, MDW, CBC, PBNP, ANEU #### [address] [address] MCH (RBC) [Entitic mass] 25.9 pg Low 27.0-33.0 [facility] ([place]) Comment on above: Performed By: #### A DIFF, TROPHS, GFR, BMP, MDW, CBC, PBNP, ANEU #### [address] [address] MCHC 32.6 G/dL Normal 32.0-36.0 [facility] ([place]) Comment on above: Performed By: #### A DIFF, TROPHS, GFR, BMP, MDW, CBC, PBNP, ANEU #### [address] [address] MCV (RBC) [Entitic vol] 79.5 fL Low 81.0-100.0 [facility] ([place]) Comment on above: Performed By: #### A DIFF, TROPHS, GFR, BMP, MDW, CBC, PBNP, ANEU #### [address] [address] Platelet 270 10 3/mcL Normal 150-450 [facility] ([place]) Comment on above: Performed By: #### A DIFF, TROPHS, GFR, BMP, MDW, CBC, PBNP, ANEU #### [address] [address] Platelet mean volume (Bld) [Entitic vol] 7.0 fL Normal 6.4-10.5 [facility] ([place]) Comment on above: Performed By: #### A DIFF, TROPHS, GFR, BMP, MDW, CBC, PBNP, ANEU #### [address] [address] RBC 5.39 10 6/mcL Normal 4.50-6.00 [facility] ([place] Comment on above: Performed By: #### A DIFF, TROPHS, GFR, BMP, MDW, CBC, PBNP, ANEU #### [address] [address] WBC 13.2 10 3/mcL High 4.5-10.8 [facility] ([place] Comment on above: Performed By: #### A DIFF, TROPHS, GFR, BMP, MDW, CBC, PBNP, ANEU #### [address] [address] CMPon 01-31-2024 Albumin Level 3.0 G/dL Low 3.2-4.8 [facility] ([place] Comment on above: Performed By: #### A DIFF, TROPHS, GFR, BMP, MDW, CBC, PBNP, ANEU #### [address] [address] Albumin/Globulin [Mass ratio] 0.8 {ratio} Low 0.9-1.6 [facility] ([place]) Comment on above: Performed By: #### A DIFF, TROPHS, GFR, BMP, MDW, CBC, PBNP, ANEU #### [address] [address] ALP [Catalytic activity/Vol] 77 U/L Normal 38-126 [facility] ([place]) Comment on above: Performed By: #### A DIFF, TROPHS, GFR, BMP, MDW, CBC, PBNP, ANEU #### [address] [address] ALT/SGPT <8 Low 12-55 [facility] ([place] Comment on above: Performed By: #### A DIFF, TROPHS, GFR, BMP, MDW, CBC, PBNP, ANEU #### [address] [address] AST [Catalytic activity/Vol] 12 U/L Normal 8-34 [facility] ([place]) Comment on above: Performed By: #### A DIFF, TROPHS, GFR, BMP, MDW, CBC, PBNP, ANEU #### [address] [address] Bili Total 0.40 mg/dL Normal 0.20-1.20 [facility] ([place]) Comment on above: Result Comment: Use of this assay is not recommended for patients undergoing treatment with eltrombopag due to the potential for falsely elevated results. Performed By: #### A DIFF, TROPHS, GFR, BMP, MDW, CBC, PBNP, ANEU #### [place] [address] [place] [address] BUN/Creatinine Ratio 11.2 ratio Normal 10.0-22.0 [facility] ([place] Comment on above: Performed By: #### A DIFF, TROPHS, GFR, BMP, MDW, CBC, PBNP, ANEU #### [address] [address] Calcium [Mass/Vol] 8.8 mg/dL Normal 8.7-10.4 [facility] ([place]) Comment on above: Performed By: #### A DIFF, TROPHS, GFR, BMP, MDW, CBC, PBNP, ANEU #### [address] [address] Chloride [Moles/Vol] 100 mmol/L Normal 98-110 [facility] ([place] Comment on above: Performed By: #### A DIFF, TROPHS, GFR, BMP, MDW, CBC, PBNP, ANEU #### [address] [address] CO2 [Moles/Vol] 29 mmol/L Normal 22-32 [facility] ([place]) Comment on above: Performed By: #### A DIFF, TROPHS, GFR, BMP, MDW, CBC, PBNP, ANEU #### [address] [address] Creatinine [Mass/Vol] 1.87 mg/dL High 0.60-1.40 [facility] ([place]) Comment on above: Result Comment: Test ing performed on frestyl analyzer using enzymatic creatinine methodology. Performed By: #### A DIFF, TROPHS, GFR, BMP, MDW, CBC, PBNP, ANEU #### [address] [address] Electrolyte Balance 8.0 mEq/L Normal 4.0-15.0 [facility] ([place]) Comment on above: Performed By: #### A DIFF, TROPHS, GFR, BMP, MDW, CBC, PBNP, ANEU #### [address] [address] Globulin 3.7 G/dL Normal 1.5-3.8 [facility] ([place]) Comment on above: Performed By: #### A DIFF, TROPHS, GFR, BMP, MDW, CBC, PBNP, ANEU #### [address] [address] Glucose [Mass/Vol] 133 mg/dL High 70-110 [facility] ([place]) Comment on above: Performed By: #### A DIFF, TROPHS, GFR, BMP, MDW, CBC, PBNP, ANEU #### [address] [address] Potassium [Moles/Vol] 3.6 mmol/L Normal 3.5-5.0 [facility] ([place]) Comment on above: Performed By: #### A DIFF, TROPHS, GFR, BMP, MDW, CBC, PBNP, ANEU #### [address] [address] Sodium [Moles/Vol] 137 mmol/L Normal 136-145 [facility] ([place]) Comment on above: Performed By: #### A DIFF, TROPHS, GFR, BMP, MDW, CBC, PBNP, ANEU #### [address] [address] Total Protein 6.7 G/dL Normal 5.7-8.2 [facility]) Comment on above: Result Comment: No te - New Reference Range in effect 19 Performed By: #### A DIFF, TROPHS, GFR, BMP, MDW, CBC, PBNP, ANEU #### [address] [address] Urea nitrogen [Mass/Vol] 21.0 mg/dL Normal 8.0-22.0 [facility] ([place] Comment on above: Performed By: #### A DIFF, TROPHS, GFR, BMP, MDW, CBC, PBNP, ANEU #### [address] [address] CVFLURVon 01-31-2024 FLU A PCR Negative Normal Negative [facility] ([place]) Comment on above: Result Comment: Note s [id number] Performed By: #### A DIFF, TROPHS, GFR, BMP, MDW, CBC, PBNP, ANEU #### [place] [address] FLU B PCR Negative Normal Negative [facility] ([place]) Comment on above: Result Comment: Note s [id number] Performed By: #### A DIFF, TROPHS, GFR, BMP, MDW, CBC, PBNP, ANEU #### [place] [address] RSV PCR Negative Normal Negative [facility] ([place]) Comment on above: Result Comment: [place] s [id number] Performed By: #### A DIFF, TROPHS, GFR, BMP, MDW, CBC, PBNP, ANEU #### [place] [address] SARS-CoV-2 (COVID-19) RNA ROSE+probe Ql (Unsp spec) Negative Normal Negative [facility] ([place]) Comment on above: Result Comment: Note s [id number] This test has been authorized by FDA [...] MDW, CBC, PBNP, ANEU #### [place] [address] LABORATORYOrdered By: SYSTEM SYSTEM on 01-31-2024 aPTT [...] [Vol rate/Area] 38 ml/min/1.73sqm Invalid Interpretation Code [facility] Comment on above: Interpretive Data: GFR [...] International Ratio 1.3 ratio Invalid Interpretation Code [facility] Comment on above: Interpretive Data: Baljinder he [employer] (CHEST, 1992, [id number]) recommended therapeutic range for oral anticoagulant therapy is: LOW RISK: Prophylaxis of venous thrombosis INR: 2.0-3.0 Treatment of pulmonary embolism 2.0-3.0 Prevention of systemic embolism 2.0-3.0 HIGH RISK: Mechanical prosthetic valves 2.5-3.5 RBC (Bld) [#/Vol] 5.39 106/mcL Normal 4.50 - 6.0 0 10^6/mcL Workflow SS Sodium [Moles/Vol] 137 mmol/L Normal 136 - 145 mEq/L [facility] Troponin I.cardiac DL <= 0.01 ng/mL [Mass/Vol] 4 ng/L Normal 0 - 54 ng/L [facility] Comment on above: Interpretive Data: High Sensitive Troponin I Reference Ranges: Female: 0-34 ng/L Male: 0-54 ng/L Testing performed on [employer] Interactive analyzer using direct chemiluminescent technology. Urea nitrogen [Mass/Vol] 21.0 mg/dL Normal 8.0 - 22.0 mg/dL [facility] Urea nitrogen/Creatinine [Mass ratio] 11.2 ratio Normal 10.0 - 22.0 ratio ADM WBC (Bld) [#/Vol] 13.2 103/mcL High 4.5 - 10.8 10^3/mcL Workflow SS LABORATORYOrdered By: Yoanna Coleman on 01-31-2024 Blood Glucose Testing Reason Routine (01/31/24 7:30 AM) [facility] Glucose [Mass/Vol] 146 mg/dL High 70 - 110 mg/dL [facility] LABORATORYOrdered By: Jacqueline reginald Bhavesh on 01-31-2024 FLUAV RNA ROSE+probe Ql (Resp) Negative 15 (01/31/24 4:30 AM) Normal Negative [facility]Sero SS Comment on above: Result Comment: [place] [id number] FLUBV RNA ROSE+probe Ql (Resp) Negative 16 (01/31/24 4:30 AM) Normal Negative AH [facility]iro/Sero SS Comment on above: Result Comment: [place] [id number] RSV PCR Negative 17 (01/31/24 4:30 AM) Normal Negative AH [facility] Viro/Sero SS Comment on above: Result Comment: Note s [id number] SARS-CoV-2 (COVID-19) RNA ROSE+probe Ql (Resp) Negative 13, 14 (01/31/24 4:30 AM) Normal Negative AH Auto Viro/Sero SS Comment on above: Result Comment: [place] s [id number] Interpretive Data: T his test has been [...] Glucose Testing Reason Routine (01/31/24 2:48 AM) [facility] Glucose [Mass/Vol] 153 mg/dL High 70 - 110 mg/dL [facility] LACon 01-31-2024 Lactic Acid Lvl 1.2 mmol/L Normal 0.5-2.2 [facility] ([place]) Comment on above: Result Comment: Spec imen hemolyzed. Results may be affected. Performed By: #### A DIFF, TROPHS, GFR, BMP, MDW, CBC, PBNP, ANEU #### [address] [address] MGon 01-31-2024 Magnesium [Mass/Vol] 1.5 mg/dL Low 1.6-2.4 [facility] ([place]) Comment on above: Performed By: #### A DIFF, TROPHS, GFR, BMP, MDW, CBC, PBNP, ANEU #### [address] [address] No Panel Informationon 01-30 Microscopic examination of blood, culture Culture has been received in lab and is no growth to date. Routine cultures are held for 5 days. [facility] PHOSon 01-31-2024 Phosphate [Mass/Vol] 3.1 mg/dL Normal 2.4-5.1 [facility] ([place]) Comment on above: Result Comment: No te - New Reference Range in effect 19 Performed By: #### A DIFF, TROPHS, GFR, BMP, MDW, CBC, PBNP, ANEU #### [address] [address] PROon 01-31-2024 INR Coag (PPP) [Relative time] 1.3 {INR} Normal [facility] ([place]) Comment on above: Result Comment: [employer] (CHEST, 1992, 102:[id number]) recommended therapeutic range for oral anticoagulant therapy is: LOW RISK: Prophylaxis of venous thrombosis INR: 2.0-3.0 Treatment of pulmonary embolism 2.0-3.0 Prevention of systemic embolism 2.0-3.0 HIGH RISK: Mechanical prosthetic valves 2.5-3.5 Performed By: #### A DIFF, TROPHS, GFR, BMP, MDW, CBC, PBNP, ANEU #### [address] [address] PT Coag (PPP) [Time] 14.7 s High 9.0-14.4 [facility] ([place]) Comment on above: Result Comment: Effe ctive 12/11/07, Protime results may be affected by some antibiotics (i.e. Ciprofloxacin, Azithromycin, Bactrim) which may potentiate the action of oral anticoagulants, with further increases in Protime/INR. Performed By: #### A DIFF, TROPHS, GFR, BMP, MDW, CBC, PBNP, ANEU #### [address] [address] TROPHSon 01-31-2024 High Sensitivity Troponin I 4 ng/L Normal 0-54 [facility] ([place]) Comment on above: Result Comment: High Sensitive Troponin I Reference Ranges: Female: 0-34 ng/L Male: 0-54 ng/L Testing performed on [employer] Interactive analyzer using direct chemiluminescent technology. Performed By: #### A DIFF, TROPHS, GFR, BMP, MDW, CBC, PBNP, ANEU #### [address] [address] .Auto Diffon 01-30-2024 Basophil, Absolute 0.2 10 3/mcL Normal 0.0-0.2 [facility] ([place]) Comment on above: Performed By: #### A DIFF, TROPHS, GFR, BMP, MDW, CBC, PBNP, ANEU #### [address] [address] Basophils/100 WBC (Bld) 1.1 % Normal 0.0-2.5 A [facility] ([place]) Comment on above: Performed By: #### A DIFF, TROPHS, GFR, BMP, MDW, CBC, PBNP, ANEU #### [address] [address] Eosinophil, Absolute 0.1 10 3/mcL Normal 0.0-0.4 [facility] ([place]) Comment on above: Performed By: #### A DIFF, TROPHS, GFR, BMP, MDW, CBC, PBNP, ANEU #### [address] [address] Eosinophils/100 WBC (Bld) 0.7 % Normal 0.0-7.0 [facility] ([place]) Comment on above: Performed By: #### A DIFF, TROPHS, GFR, BMP, MDW, CBC, PBNP, ANEU #### [address] [address] Lymphocyte, Absolute 2.8 10 3/mcL Normal 0.8-3.9 [facility] ([place]) Comment on above: Performed By: #### A DIFF, TROPHS, GFR, BMP, MDW, CBC, PBNP, ANEU #### [address] [address] Lymphocytes/100 WBC (Bld) 20.2 % Normal 10.0-50.0 [facility] ([place]) Comment on above: Performed By: #### A DIFF, TROPHS, GFR, BMP, MDW, CBC, PBNP, ANEU #### [address] [address] Monocyte, Absolute 1.7 10 3/mcL High 0.2-1.0 [facility] ([place]) Comment on above: Performed By: #### A DIFF, TROPHS, GFR, BMP, MDW, CBC, PBNP, ANEU #### [address] [address] Monocytes/100 WBC (Bld) 12.2 % Normal 1.7-13.0 [facility] ([place]) Comment on above: Performed By: #### A DIFF, TROPHS, GFR, BMP, MDW, CBC, PBNP, ANEU #### [address] [address] Neutrophils/100 WBC (Bld) 65.8 % Normal 37.0-80.0 [facility] ([place]) Comment on above: Performed By: #### A DIFF, TROPHS, GFR, BMP, MDW, CBC, PBNP, ANEU #### [address] [address] .GFRon 01-30-2024 GFR 38 ml/min/1.73sqm Normal [facility] ([place]) Comment on above: Result Comment: GFR Population [...] GFR, BMP, MDW, CBC, PBNP, ANEU #### [address] [address] GFR Non- 31 ml/min/1.73sqm [facility] ([place]) Comment on above: Result Comment: GFR Population [...] GFR, BMP, MDW, CBC, PBNP, ANEU #### [place] [address] .MDWon 01-30-2024 Monocyte Distribution Width 21.35 High 0.00-20.00 [facility] ([place]) Comment on above: Result Comment: For adults in ED, MDW>20.0 may be associated with a higher risk of sepsis during the first 12hrs of hospital admission Performed By: #### A DIFF, TROPHS, GFR, BMP, MDW, CBC, PBNP, ANEU #### [place] [address] .NEUABSon 01-30-2024 Neutrophil, Absolute 9.2 10 3/mcL High 2.9-6.2 [facility] ([place]) Comment on above: Performed By: #### A DIFF, TROPHS, GFR, BMP, MDW, CBC, PBNP, ANEU #### [place] [address] .Urinalysis Microscopic (AO) on 01-30-2024 UA RBC None Seen Normal None Seen [facility] ([place]) Comment on above: Performed By: #### A DIFF, TROPHS, GFR, BMP, MDW, CBC, PBNP, ANEU #### [place] [address] UA Squam Epithelial None Seen Normal None Seen [facility] ([place]) Comment on above: Performed By: #### A DIFF, TROPHS, GFR, BMP, MDW, CBC, PBNP, ANEU #### [place] [address] UA WBC 0-5 Abnormal None Seen [facility] ([place]) Comment on above: Performed By: #### A DIFF, TROPHS, GFR, BMP, MDW, CBC, PBNP, ANEU #### [place] [address] BGon 01-30-2024 Base excess Calc (Bld) [Moles/Vol] 4.3 mmol/L Normal [facility] ([place]) Comment on above: Performed By: #### A DIFF, TROPHS, GFR, BMP, MDW, CBC, PBNP, ANEU #### [address] [address] CO2 [Moles/Vol] 29.8 mmol/L Normal 22.0-30.0 [facility] ([place]) Comment on above: Performed By: #### A DIFF, TROPHS, GFR, BMP, MDW, CBC, PBNP, ANEU #### [address] [address] HCO3 (Bld) [Moles/Vol] 28.5 mmol/L Normal 21.0-29.0 [facility] ([place]) Comment on above: Performed By: #### A DIFF, TROPHS, GFR, BMP, MDW, CBC, PBNP, ANEU #### [address] [address] Oxygen (Bld) [Partial pressure] 51.0 mm[Hg] Low 74.0-108.0 [facility] ([place]) Comment on above: Performed By: #### A DIFF, TROPHS, GFR, BMP, MDW, CBC, PBNP, ANEU #### [address] [address] Oxygen saturation in Blood 88.8 % Low 92.0-96.0 [facility] ([place]) Comment on above: Performed By: #### A DIFF, TROPHS, GFR, BMP, MDW, CBC, PBNP, ANEU #### [address] [address] pCO2 41.0 mmHg Normal 32.0-46.0 [facility] ([place]) Comment on above: Performed By: #### A DIFF, TROPHS, GFR, BMP, MDW, CBC, PBNP, ANEU #### [address] [address] pH (Bld) 7.460 [pH] Normal 7.380-7.460 [facility] ([place]) Comment on above: Performed By: #### A DIFF, TROPHS, GFR, BMP, MDW, CBC, PBNP, ANEU #### [address] [address] BMPon 01-30-2024 BUN/Creatinine Ratio 8 ratio Normal 7-27 [facility] ([place]) Comment on above: Performed By: #### A DIFF, TROPHS, GFR, BMP, MDW, CBC, PBNP, ANEU #### [address] [address] Calcium [Mass/Vol] 8.8 mg/dL Normal 8.4-10.2 [facility] ([place]) Comment on above: Performed By: #### A DIFF, TROPHS, GFR, BMP, MDW, CBC, PBNP, ANEU #### [address] [address] Chloride [Moles/Vol] 97 mmol/L Low 98-107 [facility] ([place]) Comment on above: Performed By: #### A DIFF, TROPHS, GFR, BMP, MDW, CBC, PBNP, ANEU #### [address] [address] CO2 [Moles/Vol] 31 mmol/L High 22-29 [facility] ([place]) Comment on above: Performed By: #### A DIFF, TROPHS, GFR, BMP, MDW, CBC, PBNP, ANEU #### [address] [address] Creatinine [Mass/Vol] 2.22 mg/dL High 0.70-1.30 [facility] ([place]) Comment on above: Result Comment: Test ing performed on Siemens Dimension EXL analyzer using a modified kinetic Ciera technique. Performed By: #### A DIFF, TROPHS, GFR, BMP, MDW, CBC, PBNP, ANEU #### [address] [address] Electrolyte Balance 6.0 mEq/L Normal 4.0-15.0 [facility] ([place]) Comment on above: Performed By: #### A DIFF, TROPHS, GFR, BMP, MDW, CBC, PBNP, ANEU #### [address] [address] Glucose [Mass/Vol] 112 mg/dL High 70-105 [facility] ([place]) Comment on above: Performed By: #### A DIFF, TROPHS, GFR, BMP, MDW, CBC, PBNP, ANEU #### [address] [address] Potassium [Moles/Vol] 3.7 mmol/L Normal 3.5-5.1 [facility] ([place]) Comment on above: Performed By: #### A DIFF, TROPHS, GFR, BMP, MDW, CBC, PBNP, ANEU #### [address] [address] Sodium [Moles/Vol] 134 mmol/L Low 136-145 [facility] ([place]) Comment on above: Performed By: #### A DIFF, TROPHS, GFR, BMP, MDW, CBC, PBNP, ANEU #### [address] [address] Urea nitrogen [Mass/Vol] 17 mg/dL Normal 7-18 [facility] ([place]) Comment on above: Performed By: #### A DIFF, TROPHS, GFR, BMP, MDW, CBC, PBNP, ANEU #### [address] [address] CBCon 01-30-2024 Erythrocyte distribution width (RBC) [Ratio] 16.5 % High 11.5-14.5 [facility] ([place]) Comment on above: Performed By: #### A DIFF, TROPHS, GFR, BMP, MDW, CBC, PBNP, ANEU #### [address] [address] Hematocrit (Bld) [Volume fraction] 45.3 % Normal 42.0-52.0 [facility] ([place]) Comment on above: Performed By: #### A DIFF, TROPHS, GFR, BMP, MDW, CBC, PBNP, ANEU #### [address] [address] Hgb 14.9 G/dL Normal 14.0-18.0 [facility] ([place]) Comment on above: Performed By: #### A DIFF, TROPHS, GFR, BMP, MDW, CBC, PBNP, ANEU #### [address] [address] MCH (RBC) [Entitic mass] 26.6 pg Low 27.0-31.2 [facility] ([place]) Comment on above: Performed By: #### A DIFF, TROPHS, GFR, BMP, MDW, CBC, PBNP, ANEU #### [address] [address] MCHC 33.0 G/dL Normal 31.8-35.4 [facility] ([place]) Comment on above: Performed By: #### A DIFF, TROPHS, GFR, BMP, MDW, CBC, PBNP, ANEU #### [address] [address] MCV (RBC) [Entitic vol] 80.7 fL Normal 80.0-94.0 A [facility] ([place]) Comment on above: Performed By: #### A DIFF, TROPHS, GFR, BMP, MDW, CBC, PBNP, ANEU #### [address] [address] Platelet 263 10 3/mcL Normal 130-400 [facility] ([place]) Comment on above: Performed By: #### A DIFF, TROPHS, GFR, BMP, MDW, CBC, PBNP, ANEU #### [address] [address] Platelet mean volume (Bld) [Entitic vol] 6.8 fL Low 7.4-10.4 [facility] ([place]) Comment on above: Performed By: #### A DIFF, TROPHS, GFR, BMP, MDW, CBC, PBNP, ANEU #### [address] [address] RBC 5.61 10 6/mcL Normal 4.04-6.13 [facility] ([place]) Comment on above: Performed By: #### A DIFF, TROPHS, GFR, BMP, MDW, CBC, PBNP, ANEU #### [address] [address] WBC 14.0 10 3/mcL High 4.6-10.8 [facility] ([place]) Comment on above: Performed By: #### A DIFF, TROPHS, GFR, BMP, MDW, CBC, PBNP, ANEU #### [place] [id number] [place], [place] [address] CT HEAD OR BRAIN W/O CONTRAS Ton [...] 01/30/2024 10:16:46 PM Ordering Provider: SAMY Kate [facility] ([place]) LABORATORYOrdered By: Jil Morales on 01-30-2024 Appearance [...] ng/L Male: 0-76 ng/L Testing performed on [employer] using a homogeneous sandwich chemiluminescent immunoassay based on [employer] technology. Lactate [Moles/Vol] 1.0 mmol/L Normal 0.4 [...] ng/L Male: 0-76 ng/L Testing performed on [employer] using a homogeneous sandwich chemiluminescent immunoassay based on [employer] technology. Urea nitrogen [Mass/Vol] 17 mg/dL Normal [...] Lactic Acid Lvl 1.0 mmol/L Normal 0.4-2.0 [facility] ([place]) Comment on above: Performed By: #### L AC #### [address] [address] No Panel Informationon 01-29 Microscopic examination of blood, culture Culture has been received in lab and is no growth to date. Routine cultures are held for 5 days. [facility] PBNPon 01-30-2024 Natriuretic peptide B (Bld) [Mass/Vol] 1822 pg/mL High 0-125 [facility] ([place]) Comment on above: Result Comment: NT-p roBNP results of less than 300 pg/mL effectively rules out acute congestive heart failure with 99% negative predictive value. Performed By: #### A DIFF, TROPHS, GFR, BMP, MDW, CBC, PBNP, ANEU #### [address] [address] TROPHSon 01-30-2024 High Sensitivity Troponin I 7 ng/L Normal 0-76 [facility] ([place]) Comment on above: Result Comment: High Sensitive Troponin I Reference Ranges: Female: 0-51 ng/L Male: 0-76 ng/L Testing performed on Dimension EXL using a homogeneous sandwich chemiluminescent immunoassay based on [employer] technology. Performed By: #### A DIFF, TROPHS, GFR, BMP, MDW, CBC, PBNP, ANEU #### [address] [address] High Sensitivity Troponin I 8 ng/L Normal 0-76 [facility] ([place]) Comment on above: Result Comment: High Sensitive Troponin I Reference Ranges: Female: 0-51 ng/L Male: 0-76 ng/L Testing performed on Dimension EXL using a homogeneous sandwich chemiluminescent immunoassay based on [employer] technology. Performed By: #### A DIFF, TROPHS, GFR, BMP, MDW, CBC, PBNP, ANEU #### [address] [address] UAon 01-30-2024 Color (U) Yellow Normal [facility] ([place]) Comment on above: Performed By: #### A DIFF, TROPHS, GFR, BMP, MDW, CBC, PBNP, ANEU #### [address] [address] Glucose (U) [Mass/Vol] Negative Normal Negative [facility] ([place]) Comment on above: Performed By: #### A DIFF, TROPHS, GFR, BMP, MDW, CBC, PBNP, ANEU #### [address] [address] Ketones Ql (U) Negative Normal Negative [facility] ([place]) Comment on above: Performed By: #### A DIFF, TROPHS, GFR, BMP, MDW, CBC, PBNP, ANEU #### [address] [address] UA Appear Clear Normal Clear [facility] ([place]) Comment on above: Performed By: #### A DIFF, TROPHS, GFR, BMP, MDW, CBC, PBNP, ANEU #### [address] [address] UA Bili Small Abnormal Negative [facility] ([place]) Comment on above: Performed By: #### A DIFF, TROPHS, GFR, BMP, MDW, CBC, PBNP, ANEU #### [address] [address] UA Blood Trace Abnormal Negative [facility] ([place]) Comment on above: Performed By: #### A DIFF, TROPHS, GFR, BMP, MDW, CBC, PBNP, ANEU #### [address] [address] UA Leuk Est Trace Abnormal Negative [facility] ([place]) Comment on above: Performed By: #### A DIFF, TROPHS, GFR, BMP, MDW, CBC, PBNP, ANEU #### [address] [address] UA Nitrite Negative Normal Negative [facility] ([place]) Comment on above: Performed By: #### A DIFF, TROPHS, GFR, BMP, MDW, CBC, PBNP, ANEU #### [address] [address] UA pH 6.0 Normal 5.0 - 8.0 [facility] ([place]) Comment on above: Performed By: #### A DIFF, TROPHS, GFR, BMP, MDW, CBC, PBNP, ANEU #### [address] [address] UA Protein 100 mg/dL Abnormal Negative [facility] ([place]) Comment on above: Performed By: #### A DIFF, TROPHS, GFR, BMP, MDW, CBC, PBNP, ANEU #### [address] [address] UA Spec Grav 1.025 Normal 1.015-1.025 [facility] ([place]) Comment on above: Performed By: #### A DIFF, TROPHS, GFR, BMP, MDW, CBC, PBNP, ANEU #### [address] [address] UA Specimen Type Void Normal [facility] ([place]) Comment on above: Performed By: #### A DIFF, TROPHS, GFR, BMP, MDW, CBC, PBNP, ANEU #### [address] [address] UA Urobilinogen 1.0 E.U./dL Normal 0.2-1.0 [facility] ([place]) Comment on above: Performed By: #### A DIFF, TROPHS, GFR, BMP, MDW, CBC, PBNP, ANEU #### [address] [address] XR CHEST 1 VIEWon 01-30-2024 XR CHEST [...] 01/30/2024 9:28:12 PM Ordering Provider: SAMY JONES [facility] ([place]) .GFRon 08-08-2023 GFR Non- 105 ml/min/1.73sqm [facility] ([place]) Comment on above: Result Comment: GFR Population [...] GFR, BMP, MDW, CBC, PBNP, ANEU #### [address] [address] GFR 127 ml/min/1.73sqm [facility] ([place]) Comment on above: Result Comment: GFR Population [...] GFR, BMP, MDW, CBC, PBNP, ANEU #### [address] [address] A1Con 08-08-2023 HbA1c (Bld) [Mass fraction] 6.7 % High 4.3-6.4 [facility] ([place]) Comment on above: Performed By: #### A DIFF, TROPHS, GFR, BMP, MDW, CBC, PBNP, ANEU #### [address] [address] CMPon 08-08-2023 Albumin Level 3.4 G/dL Low 3.5-5.0 [facility] ([place]) Comment on above: Performed By: #### A DIFF, TROPHS, GFR, BMP, MDW, CBC, PBNP, ANEU #### [address] [address] Albumin/Globulin [Mass ratio] 0.9 {ratio} Low 1.1-2.5 [facility] ([place]) Comment on above: Performed By: #### A DIFF, TROPHS, GFR, BMP, MDW, CBC, PBNP, ANEU #### [address] [address] ALP [Catalytic activity/Vol] 87 U/L Normal 40-135 [facility] ([place]) Comment on above: Performed By: #### A DIFF, TROPHS, GFR, BMP, MDW, CBC, PBNP, ANEU #### [address] [address] ALT [Catalytic activity/Vol] 19 U/L Normal 16-63 [facility] ([place]) Comment on above: Performed By: #### A DIFF, TROPHS, GFR, BMP, MDW, CBC, PBNP, ANEU #### [address] [address] AST [Catalytic activity/Vol] 15 U/L Normal 10-40 [facility] ([place]) Comment on above: Performed By: #### A DIFF, TROPHS, GFR, BMP, MDW, CBC, PBNP, ANEU #### [address] [address] Bili Total 0.5 mg/dL Normal 0.2-1.0 [facility] ([place]) Comment on above: Result Comment: Use of this assay is not recommended for patients undergoing treatment with eltrombopag due to the potential for falsely elevated results. Performed By: #### A DIFF, TROPHS, GFR, BMP, MDW, CBC, PBNP, ANEU #### [address] [address] BUN/Creatinine Ratio 14 ratio Normal 7-27 [facility] ([place]) Comment on above: Performed By: #### A DIFF, TROPHS, GFR, BMP, MDW, CBC, PBNP, ANEU #### [address] [address] Calcium [Mass/Vol] 8.7 mg/dL Normal 8.4-10.2 [facility] ([place]) Comment on above: Performed By: #### A DIFF, TROPHS, GFR, BMP, MDW, CBC, PBNP, ANEU #### [address] [address] Chloride [Moles/Vol] 100 mmol/L Normal 98-107 [facility] ([place]) Comment on above: Performed By: #### A DIFF, TROPHS, GFR, BMP, MDW, CBC, PBNP, ANEU #### [address] [address] CO2 [Moles/Vol] 34 mmol/L High 22-29 [facility] ([place]) Comment on above: Performed By: #### A DIFF, TROPHS, GFR, BMP, MDW, CBC, PBNP, ANEU #### [address] [address] Creatinine [Mass/Vol] 0.78 mg/dL Normal 0.70-1.30 [facility] ([place]) Comment on above: Performed By: #### A DIFF, TROPHS, GFR, BMP, MDW, CBC, PBNP, ANEU #### [address] [address] Electrolyte Balance 6.0 mEq/L Normal 4.0-15.0 [facility] ([place]) Comment on above: Performed By: #### A DIFF, TROPHS, GFR, BMP, MDW, CBC, PBNP, ANEU #### [address] [address] Globulin 3.8 G/dL Normal [facility] ([place]) Comment on above: Performed By: #### A DIFF, TROPHS, GFR, BMP, MDW, CBC, PBNP, ANEU #### [address] [address] Glucose [Mass/Vol] 121 mg/dL High 70-105 [facility] ([place]) Comment on above: Performed By: #### A DIFF, TROPHS, GFR, BMP, MDW, CBC, PBNP, ANEU #### [address] [address] Potassium [Moles/Vol] 4.2 mmol/L Normal 3.5-5.1 [facility] ([place]) Comment on above: Performed By: #### A DIFF, TROPHS, GFR, BMP, MDW, CBC, PBNP, ANEU #### [address] [address] Sodium [Moles/Vol] 140 mmol/L Normal 136-145 [facility] ([place]) Comment on above: Performed By: #### A DIFF, TROPHS, GFR, BMP, MDW, CBC, PBNP, ANEU #### [address] [address] Total Protein 7.2 G/dL Normal 6.4-8.2 [facility] ([place]) Comment on above: Performed By: #### A DIFF, TROPHS, GFR, BMP, MDW, CBC, PBNP, ANEU #### [address] [address] Urea nitrogen [Mass/Vol] 11 mg/dL Normal 7-18 [facility] ([place]) Comment on above: Performed By: #### A DIFF, TROPHS, GFR, BMP, MDW, CBC, PBNP, ANEU #### [place] [id number] LABORATORYOrdered By: Jr Fontaine on 08-08-2023 Albumin DL <= 20 mg/L (U) [Mass/Vol] 378 mcg/dL Invalid Interpretation Code AO ADM SS Albumin/Creatinine DL <= 20 mg/L (U) [Mass ratio] 12 mcg/mg Normal 0 - 30 mcg/mg AO ADM SS Creatinine (U) [Mass/Vol] 30.5 mg/dL Low 39.0 - 259.0 mg/dL AO ADM SS LIPIDon 08-08-2023 Cholesterol [Mass/Vol] 156 mg/dL Normal 0-200 [facility] ([place]) Comment on above: Result Comment: Chol esterol Reference Interval: Less than 200 Desirable 200-239 Borderline high risk 240 and above High risk Performed By: #### A DIFF, TROPHS, GFR, BMP, MDW, CBC, PBNP, ANEU #### [place] [address] Cholesterol in HDL [Mass/Vol] 28 mg/dL Low 40-60 [facility] ([place]) Comment on above: Performed By: #### A DIFF, TROPHS, GFR, BMP, MDW, CBC, PBNP, ANEU #### [place] [address] Cholesterol in LDL [Mass/Vol] 93 mg/dL Normal 0-130 [facility] ([place]) Comment on above: Performed By: #### A DIFF, TROPHS, GFR, BMP, MDW, CBC, PBNP, ANEU #### [address] [address] Triglyceride [Mass/Vol] 175 mg/dL High 0-150 A [facility] ([place]) Comment on above: Result Comment: Trig lyceride Reference Interval: Less than 150 Normal 150-199 Borderline high risk 200-499 High risk 500 or higher Very high risk Performed By: #### A DIFF, TROPHS, GFR, BMP, MDW, CBC, PBNP, ANEU #### [address] [address] MALBRon 08-08-2023 U Creatinine 30.5 mg/dL Low 39.0-259.0 [facility] ([place]) Comment on above: Performed By: #### A DIFF, TROPHS, GFR, BMP, MDW, CBC, PBNP, ANEU #### [address] [address] U Microalb 378 mcg/dL Normal [facility] ([place]) Comment on above: Performed By: #### A DIFF, TROPHS, GFR, BMP, MDW, CBC, PBNP, ANEU #### [address] [address] U Ratio Alb/Cre 12 mcg/mg Normal 0-30 [facility] ([place]) Comment on above: Performed By: #### A DIFF, TROPHS, GFR, BMP, MDW, CBC, PBNP, ANEU #### [place] [address] CVFLURVon 06-13-2023 FLU A PCR Negative Normal Negative [facility] ([place]) Comment on above: Performed By: #### A DIFF, TROPHS, GFR, BMP, MDW, CBC, PBNP, ANEU #### [address] [address] FLU B PCR Negative Normal Negative [facility] ([place]) Comment on above: Performed By: #### A DIFF, TROPHS, GFR, BMP, MDW, CBC, PBNP, ANEU #### [address] [address] RSV PCR Negative Normal Negative [facility] ([place]) Comment on above: Performed By: #### A DIFF, TROPHS, GFR, BMP, MDW, CBC, PBNP, ANEU #### [place] [address] SARS-CoV-2 (COVID-19) RNA ROSE+probe Ql (Unsp spec) Negative Normal Negative [facility] ([place]) Comment on above: Result Comment: This test [...] BMP, MDW, CBC, PBNP, ANEU #### [place] [address] LABORATORYOrdered By: Giovana Fischer on 06-13-2023 FLUAV [...] Ordering Provider: DEMI [facility] ([place]) .Auto Diffon 06-09-2023 Basophil, Absolute 0.1 10 3/mcL Normal 0.0-0.3 [facility]) Comment on above: Performed By: #### A DIFF, TROPHS, GFR, BMP, MDW, CBC, PBNP, ANEU #### [address] [address] Basophils/100 WBC (Bld) 0.8 % Normal 0.0-2.5 [facility] ([place]) Comment on above: Performed By: #### A DIFF, TROPHS, GFR, BMP, MDW, CBC, PBNP, ANEU #### [address] [address] Eosinophil, Absolute 0.1 10 3/mcL Normal 0.0-0.7 [facility] ([place]) Comment on above: Performed By: #### A DIFF, TROPHS, GFR, BMP, MDW, CBC, PBNP, ANEU #### [address] [address] Eosinophils/100 WBC (Bld) 2.0 % Normal 0.0-6.0 [facility] ([place]) Comment on above: Performed By: #### A DIFF, TROPHS, GFR, BMP, MDW, CBC, PBNP, ANEU #### [address] [address] Lymphocyte, Absolute 1.0 10 3/mcL Normal 0.9-4.3 [facility] ([place]) Comment on above: Performed By: #### A DIFF, TROPHS, GFR, BMP, MDW, CBC, PBNP, ANEU #### [address] [address] Lymphocytes/100 WBC (Bld) 15.5 % Low 20.0-40.0 [facility] ([place]) Comment on above: Performed By: #### A DIFF, TROPHS, GFR, BMP, MDW, CBC, PBNP, ANEU #### [address] [address] Monocyte, Absolute 0.7 10 3/mcL Normal 0.1-1.4 [facility] ([place]) Comment on above: Performed By: #### A DIFF, TROPHS, GFR, BMP, MDW, CBC, PBNP, ANEU #### [address] [address] Monocytes/100 WBC (Bld) 11.1 % Normal 2.0-13.0 [facility] ([place]) Comment on above: Performed By: #### A DIFF, TROPHS, GFR, BMP, MDW, CBC, PBNP, ANEU #### [address] [address] Neutrophils/100 WBC (Bld) 70.6 % Normal 50.0-75.0 [facility] ([place]) Comment on above: Performed By: #### A DIFF, TROPHS, GFR, BMP, MDW, CBC, PBNP, ANEU #### [address] [address] .GFRon 06-09-2023 GFR Non- >60 Normal [facility] ([place]) Comment on above: Result Comment: GFR Population [...] GFR, BMP, MDW, CBC, PBNP, ANEU #### [address] [address] GFR >60 Normal [facility] ([place]) Comment on above: Result Comment: GFR Population [...] GFR, BMP, MDW, CBC, PBNP, ANEU #### [address] [address] .NEUABSon 06-09-2023 Neutrophil, Absolute 4.7 10 3/mcL Normal 2.3-8.1 [facility] ([place]) Comment on above: Performed By: #### A DIFF, TROPHS, GFR, BMP, MDW, CBC, PBNP, ANEU #### [address] [address] BMPon 06-09-2023 BUN/Creatinine Ratio 11.8 ratio Normal 10.0-22.0 [facility] ([place]) Comment on above: Performed By: #### A DIFF, TROPHS, GFR, BMP, MDW, CBC, PBNP, ANEU #### [address] [address] Calcium [Mass/Vol] 9.0 mg/dL Normal 8.7-10.4 [facility] ([place]) Comment on above: Performed By: #### A DIFF, TROPHS, GFR, BMP, MDW, CBC, PBNP, ANEU #### [address] [address] Chloride [Moles/Vol] 102 mmol/L Normal 98-110 [facility] ([place]) Comment on above: Performed By: #### A DIFF, TROPHS, GFR, BMP, MDW, CBC, PBNP, ANEU #### [address] [address] CO2 [Moles/Vol] 35 mmol/L High 22-32 [facility] ([place]) Comment on above: Performed By: #### A DIFF, TROPHS, GFR, BMP, MDW, CBC, PBNP, ANEU #### [address] [address] Creatinine [Mass/Vol] 0.85 mg/dL Normal 0.60-1.40 [facility] ([place]) Comment on above: Performed By: #### A DIFF, TROPHS, GFR, BMP, MDW, CBC, PBNP, ANEU #### [address] [address] Electrolyte Balance 0.0 mEq/L Low 4.0-15.0 [facility] ([place]) Comment on above: Performed By: #### A DIFF, TROPHS, GFR, BMP, MDW, CBC, PBNP, ANEU #### [address] [address] Glucose [Mass/Vol] 146 mg/dL High 70-110 [facility] ([place]) Comment on above: Performed By: #### A DIFF, TROPHS, GFR, BMP, MDW, CBC, PBNP, ANEU #### [address] [address] Potassium [Moles/Vol] 4.8 mmol/L Normal 3.5-5.0 [facility] ([place]) Comment on above: Performed By: #### A DIFF, TROPHS, GFR, BMP, MDW, CBC, PBNP, ANEU #### [address] [address] Sodium [Moles/Vol] 137 mmol/L Normal 136-145 [facility] ([place]) Comment on above: Performed By: #### A DIFF, TROPHS, GFR, BMP, MDW, CBC, PBNP, ANEU #### [address] [address] Urea nitrogen [Mass/Vol] 10.0 mg/dL Normal 8.0-22.0 [facility] ([place]) Comment on above: Result Comment: Spec imen hemolyzed. Results may be falsely elevated. Performed By: #### A DIFF, TROPHS, GFR, BMP, MDW, CBC, PBNP, ANEU #### [address] [address] CBCon 06-09-2023 Erythrocyte distribution width (RBC) [Ratio] 13.3 % Normal 11.5-15.5 [facility] ([place]) Comment on above: Performed By: #### A DIFF, TROPHS, GFR, BMP, MDW, CBC, PBNP, ANEU #### [address] [address] Hematocrit (Bld) [Volume fraction] 45.9 % Normal 40.0-52.0 [facility] ([place]) Comment on above: Performed By: #### A DIFF, TROPHS, GFR, BMP, MDW, CBC, PBNP, ANEU #### [address] [address] Hgb 15.6 G/dL Normal 13.0-17.5 [facility] ([place]) Comment on above: Performed By: #### A DIFF, TROPHS, GFR, BMP, MDW, CBC, PBNP, ANEU #### [place] [address] MCH (RBC) [Entitic mass] 29.0 pg Normal 27.0-33.0 [facility] ([place]) Comment on above: Performed By: #### A DIFF, TROPHS, GFR, BMP, MDW, CBC, PBNP, ANEU #### [place] [address] MCHC 33.9 G/dL Normal 32.0-36.0 [facility] ([place]) Comment on above: Performed By: #### A DIFF, TROPHS, GFR, BMP, MDW, CBC, PBNP, ANEU #### [place] [address] MCV (RBC) [Entitic vol] 85.5 fL Normal 81.0-100.0 A [facility] ([place]) Comment on above: Performed By: #### A DIFF, TROPHS, GFR, BMP, MDW, CBC, PBNP, ANEU #### [address] [address] Platelet 174 10 3/mcL Normal 150-450 [facility] ([place]) Comment on above: Performed By: #### A DIFF, TROPHS, GFR, BMP, MDW, CBC, PBNP, ANEU #### [address] [address] Platelet mean volume (Bld) [Entitic vol] 7.5 fL Normal 6.4-10.5 [facility] ([place]) Comment on above: Performed By: #### A DIFF, TROPHS, GFR, BMP, MDW, CBC, PBNP, ANEU #### [address] [address] RBC 5.37 10 6/mcL Normal 4.50-6.00 [facility] ([place]) Comment on above: Performed By: #### A DIFF, TROPHS, GFR, BMP, MDW, CBC, PBNP, ANEU #### [facility] [address] [place], [place] [address] WBC 6.6 10 3/mcL Normal 4.5-10.8 [facility] ([place]) Comment on above: Performed By: #### A DIFF, TROPHS, GFR, BMP, MDW, CBC, PBNP, ANEU #### [facility] [address] [place], [place] [address] LABORATORYOrdered By: Adenike Swain on 06-09-2023 Blood Glucose Testing Reason Routine (06/09/23 4:18 PM) [facility] Glucose [Mass/Vol] 114 mg/dL High 70 - 110 mg/dL [facility] LABORATORYOrdered By: Cris Jang on 06-09-2023 Blood Glucose Testing Reason Routine (06/09/23 7:51 AM) [facility] Glucose [Mass/Vol] 142 mg/dL High 70 - 110 mg/dL [facility] LABORATORYOrdered By: Edicy SYSTEM on 06-09-2023 Basophils (Bld) [#/Vol] 0.1 [...] (S/P/Bld) [Vol rate/Area] ml/min/1.73sqm Invalid Interpretation Code [facility] Comment on above: Interpretive Data: GFR [...] (S/P/Bld) [Vol rate/Area] ml/min/1.73sqm Invalid Interpretation Code [facility] Comment on above: Interpretive Data: GFR [...] 06-09-2023 Magnesium [Mass/Vol] 2.1 mg/dL Normal 1.6-2.4 [facility] ([place]) Comment on above: Performed By: #### A DIFF, TROPHS, GFR, BMP, MDW, CBC, PBNP, ANEU #### [address] [address] .Auto Diffon 06-08-2023 Basophil, Absolute 0.1 10 3/mcL Normal 0.0-0.3 [facility] ([place]) Comment on above: Performed By: #### A DIFF, TROPHS, GFR, BMP, MDW, CBC, PBNP, ANEU #### [address] [address] Basophils/100 WBC (Bld) 0.7 % Normal 0.0-2.5 A [facility] ([place]) Comment on above: Performed By: #### A DIFF, TROPHS, GFR, BMP, MDW, CBC, PBNP, ANEU #### [address] [address] Eosinophil, Absolute 0.1 10 3/mcL Normal 0.0-0.7 [facility] ([place]) Comment on above: Performed By: #### A DIFF, TROPHS, GFR, BMP, MDW, CBC, PBNP, ANEU #### [address] [address] Eosinophils/100 WBC (Bld) 1.9 % Normal 0.0-6.0 [facility] ([place]) Comment on above: Performed By: #### A DIFF, TROPHS, GFR, BMP, MDW, CBC, PBNP, ANEU #### [address] [address] Lymphocyte, Absolute 1.3 10 3/mcL Normal 0.9-4.3 [facility] ([place]) Comment on above: Performed By: #### A DIFF, TROPHS, GFR, BMP, MDW, CBC, PBNP, ANEU #### [address] [address] Lymphocytes/100 WBC (Bld) 16.1 % Low 20.0-40.0 [facility] ([place]) Comment on above: Performed By: #### A DIFF, TROPHS, GFR, BMP, MDW, CBC, PBNP, ANEU #### [address] [address] Monocyte, Absolute 0.8 10 3/mcL Normal 0.1-1.4 [facility] ([place]) Comment on above: Performed By: #### A DIFF, TROPHS, GFR, BMP, MDW, CBC, PBNP, ANEU #### [address] [address] Monocytes/100 WBC (Bld) 9.9 % Normal 2.0-13.0 [facility] ([place]) Comment on above: Performed By: #### A DIFF, TROPHS, GFR, BMP, MDW, CBC, PBNP, ANEU #### [address] [address] Neutrophils/100 WBC (Bld) 71.4 % Normal 50.0-75.0 [facility] ([place]) Comment on above: Performed By: #### A DIFF, TROPHS, GFR, BMP, MDW, CBC, PBNP, ANEU #### [address] [address] .GFRon 06-08-2023 GFR >60 Normal [facility] ([place]) Comment on above: Result Comment: GFR Population [...] GFR, BMP, MDW, CBC, PBNP, ANEU #### [address] [address] GFR Non- >60 Normal [facility] ([place]) Comment on above: Result Comment: GFR Population [...] GFR, BMP, MDW, CBC, PBNP, ANEU #### [address] [address] .NEUABSon 06-08-2023 Neutrophil, Absolute 5.7 10 3/mcL Normal 2.3-8.1 [facility] ([place]) Comment on above: Performed By: #### A DIFF, TROPHS, GFR, BMP, MDW, CBC, PBNP, ANEU #### [address] [address] BMPon 06-08-2023 BUN/Creatinine Ratio 10.7 ratio Normal 10.0-22.0 [facility] ([place]) Comment on above: Performed By: #### A DIFF, TROPHS, GFR, BMP, MDW, CBC, PBNP, ANEU #### [address] [address] Calcium [Mass/Vol] 8.9 mg/dL Normal 8.7-10.4 [facility] ([place]) Comment on above: Performed By: #### A DIFF, TROPHS, GFR, BMP, MDW, CBC, PBNP, ANEU #### [address] [address] Chloride [Moles/Vol] 100 mmol/L Normal 98-110 [facility] ([place]) Comment on above: Performed By: #### A DIFF, TROPHS, GFR, BMP, MDW, CBC, PBNP, ANEU #### [address] [address] CO2 [Moles/Vol] 36 mmol/L High 22-32 [facility] ([place]) Comment on above: Performed By: #### A DIFF, TROPHS, GFR, BMP, MDW, CBC, PBNP, ANEU #### [place] [address] Creatinine [Mass/Vol] 0.75 mg/dL Normal 0.60-1.40 [facility] ([place]) Comment on above: Performed By: #### A DIFF, TROPHS, GFR, BMP, MDW, CBC, PBNP, ANEU #### [address] [address] Electrolyte Balance 1.0 mEq/L Low 4.0-15.0 [facility] ([place]) Comment on above: Performed By: #### A DIFF, TROPHS, GFR, BMP, MDW, CBC, PBNP, ANEU #### [address] [address] Glucose [Mass/Vol] 160 mg/dL High 70-110 [facility] ([place]) Comment on above: Performed By: #### A DIFF, TROPHS, GFR, BMP, MDW, CBC, PBNP, ANEU #### [address] [address] Potassium [Moles/Vol] 3.4 mmol/L Low 3.5-5.0 [facility] ([place]) Comment on above: Result Comment: Spec imen slightly hemolyzed. Performed By: #### A DIFF, TROPHS, GFR, BMP, MDW, CBC, PBNP, ANEU #### [address] [address] Sodium [Moles/Vol] 137 mmol/L Normal 136-145 [facility] ([place]) Comment on above: Performed By: #### A DIFF, TROPHS, GFR, BMP, MDW, CBC, PBNP, ANEU #### [address] [address] Urea nitrogen [Mass/Vol] 8.0 mg/dL Normal 8.0-22.0 [facility] ([place]) Comment on above: Performed By: #### A DIFF, TROPHS, GFR, BMP, MDW, CBC, PBNP, ANEU #### [address] [address] CBCon 06-08-2023 Erythrocyte distribution width (RBC) [Ratio] 13.1 % Normal 11.5-15.5 [facility] ([place]) Comment on above: Performed By: #### A DIFF, TROPHS, GFR, BMP, MDW, CBC, PBNP, ANEU #### [address] [address] Hematocrit (Bld) [Volume fraction] 45.7 % Normal 40.0-52.0 [facility] ([place]) Comment on above: Performed By: #### A DIFF, TROPHS, GFR, BMP, MDW, CBC, PBNP, ANEU #### [address] [address] Hgb 15.6 G/dL Normal 13.0-17.5 [facility] ([place]) Comment on above: Performed By: #### A DIFF, TROPHS, GFR, BMP, MDW, CBC, PBNP, ANEU #### [address] [address] MCH (RBC) [Entitic mass] 29.1 pg Normal 27.0-33.0 [facility] ([place]) Comment on above: Performed By: #### A DIFF, TROPHS, GFR, BMP, MDW, CBC, PBNP, ANEU #### [address] [address] MCHC 34.3 G/dL Normal 32.0-36.0 [facility] ([place]) Comment on above: Performed By: #### A DIFF, TROPHS, GFR, BMP, MDW, CBC, PBNP, ANEU #### [address] [address] MCV (RBC) [Entitic vol] 85.0 fL Normal 81.0-100.0 A [facility] ([place]) Comment on above: Performed By: #### A DIFF, TROPHS, GFR, BMP, MDW, CBC, PBNP, ANEU #### [address] [address] Platelet 200 10 3/mcL Normal 150-450 [facility] ([place]) Comment on above: Performed By: #### A DIFF, TROPHS, GFR, BMP, MDW, CBC, PBNP, ANEU #### [address] [address] Platelet mean volume (Bld) [Entitic vol] 7.5 fL Normal 6.4-10.5 [facility] ([place]) Comment on above: Performed By: #### A DIFF, TROPHS, GFR, BMP, MDW, CBC, PBNP, ANEU #### [address] [address] RBC 5.37 10 6/mcL Normal 4.50-6.00 [facility] ([place]) Comment on above: Performed By: #### A DIFF, TROPHS, GFR, BMP, MDW, CBC, PBNP, ANEU #### [address] [address] WBC 7.9 10 3/mcL Normal 4.5-10.8 [facility] ([place]) Comment on above: Performed By: #### A DIFF, TROPHS, GFR, BMP, MDW, CBC, PBNP, ANEU #### [address] [address] LABORATORYOrdered By: Adenike Swain on 06-08-2023 Blood Glucose Testing Reason Routine (06/08/23 9:18 PM) [facility] Glucose [Mass/Vol] 173 mg/dL High 70 - 110 mg/dL [facility] LABORATORYOrdered By: SYSTEM SYSTEM on 06-08-2023 [...] 06-08-2023 Magnesium [Mass/Vol] 2.1 mg/dL Normal 1.6-2.4 [facility] ([place]) Comment on above: Performed By: #### A DIFF, TROPHS, GFR, BMP, MDW, CBC, PBNP, ANEU #### [address] [address] .Auto Diffon 06-07-2023 Basophil, Absolute 0.1 10 3/mcL Normal 0.0-0.3 [facility] ([place]) Comment on above: Performed By: #### A DIFF, TROPHS, GFR, BMP, MDW, CBC, PBNP, ANEU #### [address] [address] Basophils/100 WBC (Bld) 0.6 % Normal 0.0-2.5 A [facility] ([place]) Comment on above: Performed By: #### A DIFF, TROPHS, GFR, BMP, MDW, CBC, PBNP, ANEU #### [address] [address] Eosinophil, Absolute 0.2 10 3/mcL Normal 0.0-0.7 [facility] ([place]) Comment on above: Performed By: #### A DIFF, TROPHS, GFR, BMP, MDW, CBC, PBNP, ANEU #### [address] [address] Eosinophils/100 WBC (Bld) 1.6 % Normal 0.0-6.0 [facility] ([place]) Comment on above: Performed By: #### A DIFF, TROPHS, GFR, BMP, MDW, CBC, PBNP, ANEU #### [address] [address] Lymphocyte, Absolute 1.4 10 3/mcL Normal 0.9-4.3 [facility] ([place]) Comment on above: Performed By: #### A DIFF, TROPHS, GFR, BMP, MDW, CBC, PBNP, ANEU #### [address] [address] Lymphocytes/100 WBC (Bld) 14.0 % Low 20.0-40.0 [facility] ([place]) Comment on above: Performed By: #### A DIFF, TROPHS, GFR, BMP, MDW, CBC, PBNP, ANEU #### [address] [address] Monocyte, Absolute 0.6 10 3/mcL Normal 0.1-1.4 [facility] ([place]) Comment on above: Performed By: #### A DIFF, TROPHS, GFR, BMP, MDW, CBC, PBNP, ANEU #### [address] [address] Monocytes/100 WBC (Bld) 6.4 % Normal 2.0-13.0 [facility] ([place]) Comment on above: Performed By: #### A DIFF, TROPHS, GFR, BMP, MDW, CBC, PBNP, ANEU #### [address] [address] Neutrophils/100 WBC (Bld) 77.4 % High 50.0-75.0 [facility] ([place]) Comment on above: Performed By: #### A DIFF, TROPHS, GFR, BMP, MDW, CBC, PBNP, ANEU #### [address] [address] .GFRon 06-07-2023 GFR >60 Normal [facility] ([place]) Comment on above: Result Comment: GFR Population [...] GFR, BMP, MDW, CBC, PBNP, ANEU #### [address] [address] GFR Non- >60 Normal [facility] ([place]) Comment on above: Result Comment: GFR Population [...] GFR, BMP, MDW, CBC, PBNP, ANEU #### [address] [address] .NEUABSon 06-07-2023 Neutrophil, Absolute 7.7 10 3/mcL Normal 2.3-8.1 [facility] ([place]) Comment on above: Performed By: #### A DIFF, TROPHS, GFR, BMP, MDW, CBC, PBNP, ANEU #### [place] [id number] CBCon 06-07-2023 Erythrocyte distribution width (RBC) [Ratio] 14.0 % Normal 11.5-15.5 [facility] ([place]) Comment on above: Performed By: #### A DIFF, TROPHS, GFR, BMP, MDW, CBC, PBNP, ANEU #### [place] [address] Hematocrit (Bld) [Volume fraction] 47.6 % Normal 40.0-52.0 [facility] ([place]) Comment on above: Performed By: #### A DIFF, TROPHS, GFR, BMP, MDW, CBC, PBNP, ANEU #### [place] [address] Hgb 16.3 G/dL Normal 13.0-17.5 [facility] ([place]) Comment on above: Performed By: #### A DIFF, TROPHS, GFR, BMP, MDW, CBC, PBNP, ANEU #### [place] [address] MCH (RBC) [Entitic mass] 29.1 pg Normal 27.0-33.0 [facility] ([place]) Comment on above: Performed By: #### A DIFF, TROPHS, GFR, BMP, MDW, CBC, PBNP, ANEU #### [place] [address] MCHC 34.2 G/dL Normal 32.0-36.0 [facility] ([place]) Comment on above: Performed By: #### A DIFF, TROPHS, GFR, BMP, MDW, CBC, PBNP, ANEU #### [address] [place] [address] [place] [address] MCV (RBC) [Entitic vol] 84.9 fL Normal 81.0-100.0 A [facility] ([place]) Comment on above: Performed By: #### A DIFF, TROPHS, GFR, BMP, MDW, CBC, PBNP, ANEU #### [address] [address] Platelet 228 10 3/mcL Normal 150-450 [facility] ([place]) Comment on above: Performed By: #### A DIFF, TROPHS, GFR, BMP, MDW, CBC, PBNP, ANEU #### [address] [address] Platelet mean volume (Bld) [Entitic vol] 8.0 fL Normal 6.4-10.5 [facility] ([place]) Comment on above: Performed By: #### A DIFF, TROPHS, GFR, BMP, MDW, CBC, PBNP, ANEU #### [address] [address] RBC 5.61 10 6/mcL Normal 4.50-6.00 [facility] ([place]) Comment on above: Performed By: #### A DIFF, TROPHS, GFR, BMP, MDW, CBC, PBNP, ANEU #### [address] [address] WBC 9.9 10 3/mcL Normal 4.5-10.8 [facility] ([place]) Comment on above: Performed By: #### A DIFF, TROPHS, GFR, BMP, MDW, CBC, PBNP, ANEU #### [address] [address] CMPon 06-07-2023 Albumin Level 3.3 G/dL Normal 3.2-4.8 [facility] ([place]) Comment on above: Order Comment: hemol yzed. needs redrawn Performed By: #### A DIFF, TROPHS, GFR, BMP, MDW, CBC, PBNP, ANEU #### [address] [address] Albumin/Globulin [Mass ratio] 0.9 {ratio} Normal 0.9-1.6 [facility] ([place]) Comment on above: Order Comment: hemol yzed. needs redrawn Performed By: #### A DIFF, TROPHS, GFR, BMP, MDW, CBC, PBNP, ANEU #### [address] [address] ALP [Catalytic activity/Vol] 93 U/L Normal 38-126 [facility] ([place]) Comment on above: Order Comment: hemol yzed. needs redrawn Performed By: #### A DIFF, TROPHS, GFR, BMP, MDW, CBC, PBNP, ANEU #### [address] [address] ALT [Catalytic activity/Vol] 13 U/L Normal 12-55 [facility] ([place]) Comment on above: Order Comment: hemol yzed. needs redrawn Performed By: #### A DIFF, TROPHS, GFR, BMP, MDW, CBC, PBNP, ANEU #### [address] [address] AST [Catalytic activity/Vol] 13 U/L Normal 8-34 [facility] ([place]) Comment on above: Order Comment: hemol yzed. needs redrawn Performed By: #### A DIFF, TROPHS, GFR, BMP, MDW, CBC, PBNP, ANEU #### [address] [address] Bili Total 0.30 mg/dL Normal 0.20-1.20 [facility] ([place]) Comment on above: Order Comment: hemol yzed. needs redrawn Result Comment: Use of this assay is not recommended for patients undergoing treatment with eltrombopag due to the potential for falsely elevated results. Performed By: #### A DIFF, TROPHS, GFR, BMP, MDW, CBC, PBNP, ANEU #### [address] [address] BUN/Creatinine Ratio 10.8 ratio Normal 10.0-22.0 [facility] ([place]) Comment on above: Order Comment: hemol yzed. needs redrawn Performed By: #### A DIFF, TROPHS, GFR, BMP, MDW, CBC, PBNP, ANEU #### [address] [address] Calcium [Mass/Vol] 8.8 mg/dL Normal 8.7-10.4 [facility] ([place]) Comment on above: Order Comment: hemol yzed. needs redrawn Performed By: #### A DIFF, TROPHS, GFR, BMP, MDW, CBC, PBNP, ANEU #### [address] [address] Chloride [Moles/Vol] 97 mmol/L Low 98-110 [facility] ([place]) Comment on above: Order Comment: hemol yzed. needs redrawn Performed By: #### A DIFF, TROPHS, GFR, BMP, MDW, CBC, PBNP, ANEU #### [address] [address] CO2 [Moles/Vol] 37 mmol/L High 22-32 [facility] ([place]) Comment on above: Order Comment: hemol yzed. needs redrawn Performed By: #### A DIFF, TROPHS, GFR, BMP, MDW, CBC, PBNP, ANEU #### [address] [address] Creatinine [Mass/Vol] 0.93 mg/dL Normal 0.60-1.40 [facility] ([place]) Comment on above: Order Comment: hemol yzed. needs redrawn Performed By: #### A DIFF, TROPHS, GFR, BMP, MDW, CBC, PBNP, ANEU #### [address] [address] Electrolyte Balance 3.0 mEq/L Low 4.0-15.0 [facility] ([place]) Comment on above: Order Comment: hemol yzed. needs redrawn Performed By: #### A DIFF, TROPHS, GFR, BMP, MDW, CBC, PBNP, ANEU #### [address] [address] Globulin 3.6 G/dL Normal 1.5-3.8 [facility] ([place]) Comment on above: Order Comment: hemol yzed. needs redrawn Performed By: #### A DIFF, TROPHS, GFR, BMP, MDW, CBC, PBNP, ANEU #### [address] [address] Glucose [Mass/Vol] 209 mg/dL High 70-110 [facility] ([place]) Comment on above: Order Comment: hemol yzed. needs redrawn Performed By: #### A DIFF, TROPHS, GFR, BMP, MDW, CBC, PBNP, ANEU #### [address] [address] Potassium [Moles/Vol] 3.6 mmol/L Normal 3.5-5.0 [facility] ([place]) Comment on above: Order Comment: hemol yzed. needs redrawn Result Comment: Spec imen slightly hemolyzed. Performed By: #### A DIFF, TROPHS, GFR, BMP, MDW, CBC, PBNP, ANEU #### [address] [address] Sodium [Moles/Vol] 137 mmol/L Normal 136-145 [facility] ([place]) Comment on above: Order Comment: hemol yzed. needs redrawn Performed By: #### A DIFF, TROPHS, GFR, BMP, MDW, CBC, PBNP, ANEU #### [address] [address] Total Protein 6.9 G/dL Normal 5.7-8.2 [facility] ([place]) Comment on above: Order Comment: hemol yzed. needs redrawn Result Comment: No te - New Reference Range in effect 19 Performed By: #### A DIFF, TROPHS, GFR, BMP, MDW, CBC, PBNP, ANEU #### [address] [address] Urea nitrogen [Mass/Vol] 10.0 mg/dL Normal 8.0-22.0 [facility] ([place]) Comment on above: Order Comment: hemol yzed. needs redrawn Performed By: #### A DIFF, TROPHS, GFR, BMP, MDW, CBC, PBNP, ANEU #### [address] [place] [address] [place], [place] [address] LABORATORYOrdered By: SYSTEM SYSTEM on 06-07-2023 Albumin [...] 06-07-2023 Magnesium [Mass/Vol] 1.7 mg/dL Normal 1.6-2.4 [facility] ([place]) Comment on above: Performed By: #### A DIFF, TROPHS, GFR, BMP, MDW, CBC, PBNP, ANEU #### [place] [id number] [place], [place] [address] XR CHEST 1 VIEWon 05-05-2023 XR CHEST [...] 05/05/2023 9:17:04 PM Ordering Provider: DEMI Kate [facility] ([place]) XR RIBS 2 VIEWS RIGHTon XR RIBS [...] 05/05/2023 9:08:30 PM Ordering Provider: DEMI Kate [facility] ([place]) PBNPon 03-22-2023 Natriuretic peptide B (Bld) [Mass/Vol] 378 pg/mL High 0-125 [facility] ([place]) Comment on above: Result Comment: NT-p roBNP results of less than 300 pg/mL effectively rules out acute congestive heart failure with 99% negative predictive value. Performed By: #### A DIFF, TROPHS, GFR, BMP, MDW, CBC, PBNP, ANEU #### [address] [place], [place] [address] Influenza virus A and B and SARS-CoV-2 (COVID-19) Ag panel - Upper respiratory specimOrdered By: Nguyễn Al on 02-12-2023 SARS-CoV-2 (COVID-19) RNA ROSE+probe Ql (Resp) [facility] LABORATORYOrdered By: SYSTEM SYSTEM on 12-23-2022 [...] 150 mg/dL AO ADM SS LABORATORYOrdered By: Edicy SYSTEM on 10-27-2022 Albumin BCP dye [Mass/Vol] [...] Auto (Unsp spec) [#/Vol] 1.50 10*3/uL 0.83-4.51 [facility] Basophil percentageOrdered B y: Dr. Brown on 10-23-2022 Basophils/100 WBC (Bld) 0.8 % 0-1 [facility] Chloride [Moles/Vol] 102 mmol/L 98-107 [facility] Eosinophils/100 WBC (Bld) 2.4 % 0-5 [facility] Glucose [Mass/Vol] 126 mg/dL 74-106 [facility] Comment on above: Fasting Glucose resu lt greater than or equal to 126 mg/dL suggests DIABETES MELLITUS per A.D.A. criteria. Neutrophils (Bld) [#/Vol] 5.4 10*3/uL 2.0-7.7 [facility] Neutrophils/100 WBC (Bld) 67.9 % 47-70 [facility] Potassium [Moles/Vol] 3.2 mmol/L 3.5-5.1 [facility] Sodium [Moles/Vol] 140 mmol/L 136-145 [facility] WBC (Bld) [#/Vol] 7.9 10*3/uL 4.4-11.0 [facility] Blood erythrocytes count (nu mber/volume)Ordered By: Dr. Brown on 10-23-2022 RBC (Bld) [#/Vol] 6.06 10*6/uL 4.6-6.2 [facility] Blood hemoglobin measurement (mass/volume)Ordered By: Dr. Brown on 10-23-2022 Hemoglobin (Bld) [Mass/Vol] 17.2 g/dL 13.0-16.5 [facility] Blood lymphocytes/100 leukoc ytesOrdered By: Dr. Brown on 10-23-2022 Lymphocytes/100 WBC (Bld) 19.0 % 19-41 [facility] Blood monocytes/100 leukocyt esOrdered By: Dr. Brown on 10-23-2022 Monocytes/100 WBC (Bld) 9.6 % 0-10 [facility] Blood platelet mean volumeOr dered By: Dr. Brown on 10-23-2022 Platelet mean volume (Bld) [Entitic vol] 10.3 fL 6.2-12.0 [facility] Determination of erythrocyte mean corpuscular volume (MCV)Ordered By: Dr. Brown on 10-23-2022 MCV (RBC) [Entitic vol] 89.6 fL 80-94 [facility] Hematocrit Auto (Bld) [Volum e fraction]Ordered By: Dr. Brown on 10-23-2022 Hematocrit (Bld) [Volume fraction] 54.3 % 40-54 [facility] - Chemistry and C hemistry - challengeOrdered By: Dr. Brown on 10-23-2022 CO2 [Moles/Vol] 32.0 mmol/L 21.0-32.0 [facility] Natriuretic peptide B (Bld) [Mass/Vol] 182.2 pg/mL 0-100 [facility] Urea nitrogen/Creatinine [Mass ratio] 13.0 mg/mg 10-20 [facility] - Hematology and Cell countsOrdered By: Dr. Brown on 10-23-2022 Erythrocyte distribution width (RBC) [Entitic vol] 46.1 fL 35.1-43.9 [facility] Erythrocyte distribution width (RBC) [Ratio] 14.1 % 11.6-14.6 [facility] Immature granulocytes/100 WBC (Bld) 0.300 % 0.0-0.9 [facility] Comment on above: IG% - Immature Granu locytes (promyelocytes, myelocytes and metamyelocytes) > 1% indicates that a LEFT SHIFT is Present. MCH (RBC) [Entitic mass] 28.4 pg 27.0-32.0 [facility] Nucleated RBC/100 WBC (Bld) [Ratio] 0 % 0-5 [facility] MCHC Auto (RBC) [Mass/Vol]Or dered By: Dr. Brown on 10-23-2022 MCHC (RBC) [Mass/Vol] 31.7 g/dL 32-36 [facility] No Panel InformationOrdered By: Dr. Brown on 10-23-2022 Troponin I High Sensitivity 14 pg/mL 3.0-78.0 [facility] Comment on above: Please Note: New Faye t Units and Gender Specific Reference Ranges. For more information see Policy Stat Procedure [place] High Sensitivity Troponin (TNIH) and attachments. Estimated Creatinine Clearance Calc 104.04 ml/min [facility] Estimated GFR (MDRD) Amer 123 mL/min >60 [facility] Comment on above: GFR Calc Estimated GFR (MDRD) Non-Af Amer 102 mL/min >60 [facility] Comment on above: Non- GFR Calc Platelets bldOrdered By: Dr. Brown on 10-23-2022 Platelets (Bld) [#/Vol] 234 10*3/uL 150-450 [facility] Serum or plasma calcium scott urement (mass/volume)Ordered By: Dr. Brown on 10-23-2022 Calcium [Mass/Vol] 8.7 mg/dL 8.5-10.1 [facility] Serum or plasma creatinine m easurement (mass/volume)Ordered By: Dr. Brown on 10-23-2022 Creatinine [Mass/Vol] 0.84 mg/dL 0.70-1.30 [facility] Comment on above: The validity of the calculated GFR & GFRAA in patients over 70 years has not been determined. Clinical correlation is essential. Serum or plasma urea nitroge n measurement (mass/volume)Ordered By: Dr. Brown on 10-23-2022 Urea nitrogen [Mass/Vol] 11 mg/dL 7-18 [facility] Thin prep Papanicolaou smear with manual screeningOrdered By: Dr. Brown on 10-23-2022 Thin prep Papanicolaou smear with manual screening 6 -15 [facility] Invasive Cardiology Clinic N oteon 08-24-2021 Invasive Cardiology Clinic Note . [facility] A Division of [facility] Gem Barr M.D., [place] [phone] * Reason for VisitFOLLOW UP CHEST PAIN(1) [...] me to participate in your patient's care. Hyperion Analyst Statement: Transcribed for Dr. Barr by LEWIS , radio repairer domestic. Electronic Signatures: Gem Barr) (Signed 11:31) Authored: Letterhead Option, Reason for Visit, Vital Signs, Allergies/Meds, History of Present Illness, Past Medical, Surgical and Family History, ROS, Physical Exam, Results, Assessment and Plan, Hyperion Analyst Statement Km Phan (High School Social Science Teacher) (Entered 15:30) Entered: Letterhead Option, Reason for Visit, Vital Signs, Allergies/Meds, History of Pr (more content not included)... Normal [facility] Echocardiogram-Completeon Echocardiogram-Complete Study ID: [id number] [facility] [place] [address] Name: CARLOS ALBERTO KELLEYJR Study Date: 08/17/2021 07:55 AM BP: 152/92 mmHg Patient Location: [facility] HR: 84 : 1970 Gender: Male [...] mmHg MV P1/2t-pr: 94.6 msec E/LatE': 9.4 [id number] Normal [facility], [facility]. Invasive Cardiology Clinic N oteon 08-02-2021 Invasive Cardiology Clinic Note . [facility] A Division of [facility] Gem Barr M.D., [facility] [address] [place] [address] * Reason for VisitFOLLOW UP CHEST PAIN(1) [...] to con (more content not included)... 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 Normal [facility] GLYCOHEMOGLOBINon 01-06-2021 HbA1c (Bld) [Mass fraction] 6.43 % High 4.60-6.30 [facility] Comment on above: Performed By: #### % A1c #### [facility] [address] [place] [address] SUE Flores MD LIPID PROFILE - FASTINGon Cholesterol [Mass/Vol] 152 mg/dL Normal <=200 [facility] Comment on above: Performed By: #### L IPID #### [facility] [address] [place] [address] 29846 SUE Florse MD Cholesterol in HDL [Mass/Vol] 28 mg/dL Low 40-60 [facility] Comment on above: Performed By: #### L IPID #### [facility] [address] [place] [address] 99164 SUE Flores MD Cholesterol in LDL [Mass/Vol] 85 mg/dL Normal 0-130 [facility] Comment on above: Performed By: #### L IPID #### [facility] [address] [place] [address] 10264 SUE Flores MD COMMENT Recommended (Desirable) < 130mg/dL Moderate Risk 130-159 mg/dL High Risk: >/= 130 mg/dL [facility] Comment on above: Performed By: #### L IPID #### [facility] [address] [place] [address] 59611 SUE Flores MD Triglyceride [Mass/Vol] 198 mg/dL High <=150 [facility] Comment on above: Performed By: #### L IPID #### [facility] [address] [place] [address] 20750 SUE Flores MD RENAL FUNCTION PANELon 01-06 Albumin [Mass/Vol] 4.4 g/dL Normal 3.5-5.0 [facility] Comment on above: Performed By: #### R FP #### [facility] [address] [place], [place] [id number] SUE Flores MD Calcium [Mass/Vol] 9.6 mg/dL Normal 8.4-10.2 [facility] Comment on above: Performed By: #### R FP #### [facility] [address] [place] [address] SUE Flores MD Chloride [Moles/Vol] 96 mmol/L Low 98-107 [facility] Comment on above: Performed By: #### R FP #### [facility] [address] [place] [address] SUE Flores MD Creatinine [Mass/Vol] 0.9 mg/dL Normal 0.7-1.3 [facility] Comment on above: Performed By: #### R FP #### [facility] [address] [place] [address] SUE Flores MD ECO2 29 mmol/L Normal 22-30 [facility] Comment on above: Performed By: #### R FP #### [facility] [address] [place], [place] [id number] SUE Flores MD EGFR-AF EMIRATI 109 mL/min/1.73m 2 Normal >=60 [facility] Comment on above: Performed By: #### R FP #### [facility] [address] [place], [place] [id number] SUE Flores MD EGFR-NON AF EMIRATI 90 mL/min/1.73 m 2 Normal >=60 [facility] Comment on above: Performed By: #### R FP #### [facility] [address] [place], [place] [id number] SUE Flores MD Glucose [Mass/Vol] 146 mg/dL High 70-99 [facility] Comment on above: Performed By: #### R FP #### [facility] [address] [place], [place] [id number] SUE Flores MD Phosphate [Mass/Vol] 4.2 mg/dL Normal 2.5-4.5 [facility] Comment on above: Performed By: #### R FP #### [facility] [address] [place] [address] 31587 SUE Flores MD Potassium [Moles/Vol] 4.0 mmol/L Normal 3.5-5.0 [facility] Comment on above: Performed By: #### R FP #### [facility] [address] [place], [place] [id number] SUE Flores MD Sodium [Moles/Vol] 136 mmol/L Low 137-145 [facility] Comment on above: Performed By: #### R FP #### [facility] [address] [place], [place] [id number] SUE Flores MD Urea nitrogen [Mass/Vol] 13 mg/dL Normal 9-20 [facility] Comment on above: Performed By: #### R FP #### [facility] [address] [place], [place] [address] SUE Flores MD CHEST TWO VIEWSon 11-09-2020 [...] DYER MD Date: 11/09/2020 3:55 PM Normal [facility] CBC PLT DIFFon 06-11-2020 BASO # 0.04 10 3/uL Normal 0.00-0.10 [facility] Comment on above: Performed By: #### C BC #### [facility] [address] [place], [place] [id number] SUE Flores MD Basophils/100 WBC (Bld) 0.5 % Normal 0.2-1.0 [facility] Comment on above: Performed By: #### C BC #### [facility] [address] [place], [place] [address] SUE Flores MD EOS# 0.19 10 3/uL Normal 0.00-0.20 [facility] Comment on above: Performed By: #### C BC #### [facility] [address] [place] [address] SUE Flores MD Eosinophils/100 WBC (Bld) 2.3 % Normal 0.9-2.9 [facility] Comment on above: Performed By: #### C BC #### [facility] [address] [place] [address] SUE Flores MD Erythrocyte distribution width (RBC) [Ratio] 13.4 % Normal 11.5-15.5 [facility] Comment on above: Performed By: #### C BC #### [facility] [address] [place] [address] SUE Flores MD Hematocrit (Bld) [Volume fraction] 46.5 % Normal 42.0-52.0 [facility] Comment on above: Performed By: #### C BC #### [facility] [address] [place] [address] SUE Flores MD Hemoglobin (Bld) [Mass/Vol] 16.0 g/dL Normal 14.0-18.0 [facility] Comment on above: Performed By: #### C BC #### [facility] [address] [place] [address] SUE Flores MD IG# 0.04 10 3/uL Normal [facility] Comment on above: Performed By: #### C BC #### [facility] [address] [place] [address] SUE Flores MD IG% 0.5 % Normal [facility] Comment on above: Performed By: #### C BC #### [facility] [address] [place], [place] [address] SUE Flores MD LYMPH# 1.41 10 3/uL Normal 1.30-2.90 [facility] Comment on above: Performed By: #### C BC #### [facility] [address] [place], [place] [id number] SUE Flores MD Lymphocytes/100 WBC (Bld) 17.4 % Low 20.5-45.5 [facility] Comment on above: Performed By: #### C BC #### [facility] [address] [place] [address] SUE Flores MD MCH (RBC) [Entitic mass] 30.1 pg Normal 27.0-31.0 [facility] Comment on above: Performed By: #### C BC #### [facility] [address] [place], [place] [id number] SUE Flores MD MCHC (RBC) [Mass/Vol] 34.4 g/dL Normal 32.0-36.0 [facility] Comment on above: Performed By: #### C BC #### [facility] [address] [place], [place] [address] SUE Flores MD MCV (RBC) [Entitic vol] 87.6 fL Normal 80.0-94.0 [facility] Comment on above: Performed By: #### C BC #### [facility] [address] [place] [address] SUE Flores MD MONO# 0.67 10 3/uL Normal 0.30-0.80 [facility] Comment on above: Performed By: #### C BC #### [facility] [address] [place] [address] SUE Flores MD Monocytes/100 WBC (Bld) 8.3 % Normal 5.5-11.7 [facility] Comment on above: Performed By: #### C BC #### [facility] [address] [place], [place] [address] SUE Flores MD Morphology Rocky (Bld) [Interp] Normal [facility] Comment on above: Performed By: #### C BC #### [facility] [address] [place], [place] [address] SUE Flores MD NEUT# 5.75 10 3/uL High 2.20-4.80 [facility] Comment on above: Performed By: #### C BC #### [facility] [address] [place], [place] [address] SUE Flores MD Neutrophils/100 WBC (Bld) 71.0 % High 43.0-65.0 [facility] Comment on above: Performed By: #### C BC #### [facility] [address] [place] [address] SUE Flores MD NRBC# 0.00 10 3/uL Normal [facility] Comment on above: Performed By: #### C BC #### [facility] [address] [place], [place] [address] SUE Flores MD Nucleated RBC/100 WBC (Bld) [Ratio] 0.0 % Normal [facility] Comment on above: Performed By: #### C BC #### [facility] [address] [place], [place] [id number] SUE Flores MD Platelet mean volume (Bld) [Entitic vol] 8.4 fL Normal 7.4-10.4 [facility] Comment on above: Performed By: #### C BC #### [facility] [address] [place] [address] SUE Flores MD PLT 221 10 3/uL Normal 130-400 [facility] Comment on above: Performed By: #### C BC #### [facility] [address] [place], [place] [address] SUE Flores MD RBC 5.31 10 6/uL Normal 4.70-6.10 [facility] Comment on above: Performed By: #### C BC #### [facility] [address] [place], [place] [address] SUE Flores MD WBC 8.10 10 3/uL Normal 4.70-10.80 [facility] Comment on above: Performed By: #### C BC #### [facility] [address] [place], [place] [address] SUE Flores MD CMPon 06-11-2020 Albumin [Mass/Vol] 4.1 g/dL Normal 3.5-5.0 [facility] Comment on above: Performed By: #### C MP #### [facility] [address] [place], [place] [address] SUE Flores MD ALP [Catalytic activity/Vol] 72 U/L Normal 38-126 [facility] Comment on above: Performed By: #### C MP #### [facility] [address] [place] [address] SUE Flores MD ALT [Catalytic activity/Vol] 17 U/L Low 21-72 [facility] Comment on above: Performed By: #### C MP #### [facility] [address] [place] [address] SUE Flores MD AST [Catalytic activity/Vol] 21 U/L Normal 17-59 [facility] Comment on above: Performed By: #### C MP #### [facility] [address] [place] [address] SUE Flores MD Bilirubin [Mass/Vol] 0.6 mg/dL Normal 0.2-1.3 [facility] Comment on above: Performed By: #### C MP #### [facility] [address] [place] [address] SUE Flores MD Calcium [Mass/Vol] 8.9 mg/dL Normal 8.4-10.2 [facility] Comment on above: Performed By: #### C MP #### [facility] [address] [place] [address] SUE Flores MD Chloride [Moles/Vol] 99 mmol/L Normal 98-107 [facility] Comment on above: Performed By: #### C MP #### [facility] [address] [place] [address] SUE Flores MD Creatinine [Mass/Vol] 0.7 mg/dL Normal 0.7-1.3 [facility] Comment on above: Performed By: #### C MP #### [facility] [address] [place] [address] SUE Flores MD ECO2 30 mmol/L Normal 22-30 [facility] Comment on above: Performed By: #### C MP #### [facility] [address] [place] [address] SUE Flores MD EGFR-AF EMIRATI 146 mL/min/1.73m 2 Normal >=60 [facility] Comment on above: Performed By: #### C MP #### [facility] [address] [place] [address] SUE Flores MD EGFR-NON AF EMIRATI 120 mL/min/1.73 m 2 Normal >=60 [facility] Comment on above: Performed By: #### C MP #### [facility] [address] [place] [address] SUE Flores MD Glucose [Mass/Vol] 125 mg/dL High 70-99 [facility] Comment on above: Performed By: #### C MP #### [facility] [address] [place] [address] SUE Flores MD Potassium [Moles/Vol] 3.6 mmol/L Normal 3.5-5.0 [facility] Comment on above: Performed By: #### C MP #### [facility] [address] [place] [address] SUE Flores MD Protein [Mass/Vol] 7.4 g/dL Normal 6.3-8.2 [facility] Comment on above: Performed By: #### C MP #### [facility] [address] [place] [address] SUE Flores MD Sodium [Moles/Vol] 136 mmol/L Low 137-145 [facility] Comment on above: Performed By: #### C MP #### [facility] [address] [place] [address] SUE Flores MD Urea nitrogen [Mass/Vol] 11 mg/dL Normal 9-20 [facility] Comment on above: Performed By: #### C MP #### [facility] [address] [place], [place] [address] SUE Flores MD GLYCOHEMOGLOBINon 06-11-2020 HbA1c (Bld) [Mass fraction] 6.22 % Normal 4.00-6.30 [facility] Comment on above: Performed By: #### % A1c #### [facility] [address] [place] [address] SUE Flores MD LIPID PROFILE - FASTINGon Cholesterol [Mass/Vol] 147 mg/dL Normal <=200 [facility] Comment on above: Performed By: #### L IPID #### [facility] [address] [place] [address] SUE Flores MD Cholesterol in HDL [Mass/Vol] 24 mg/dL Low 40-60 [facility] Comment on above: Performed By: #### L IPID #### [facility] [address] [place] [address] SUE Flores MD Cholesterol in LDL [Mass/Vol] 89 mg/dL Normal 0-130 [facility] Comment on above: Performed By: #### L IPID #### [facility] [address] [place] [address]168 SUE Flores MD COMMENT Recommended (Desirable) < 130mg/dL Moderate Risk 130-159 mg/dL High Risk: >/= 130 mg/dL Normal [facility] Comment on above: Performed By: #### L IPID #### [facility] [address] [place] [address]7960 SUE Flores MD Triglyceride [Mass/Vol] 167 mg/dL High <=150 [facility] Comment on above: Performed By: #### L IPID #### [facility] [address] [place], [place] [address] SUE Flores MD URIC ACIDon 06-11-2020 Urate [Mass/Vol] 5.6 mg/dL Normal 3.5-8.5 [facility] Comment on above: Performed By: #### U R #### [facility] [address] [place], [place] [address] SUE Flores MD Vital Signs Date Time Vital Sign Value Performing Clinician Adriano godinez 12-20-2024 14:00-0400 Inhaled oxygen flow rate 2 L/min Girma KNIGHTC Work Phone: [facility] 12-20-2024 03:00-0400 Diastolic blood pressure 82 mm[Hg] Girma KNIGHTC Work Phone: [facility] 12-20-2024 03:00-0400 Heart rate 61 /min Girma Correa [employer] Work Phone: [facility] 12-20-2024 03:00-0400 Respiratory rate 17 /min Girma Correa [employer] Work Phone: [facility] 12-20-2024 03:00-0400 SaO2% (BldA) [Mass fraction] 97 % Girma Sunny [employer] Work Phone: [facility] 12-20-2024 03:00-0400 Systolic blood pressure 126 mm[Hg] Girma Correa [employer] Work Phone: [facility] 12-20-2024 02:36-0400 Body temperature 98.2 [degF] Girma Correa [employer] Work Phone: [facility] 12-19-2024 22:20-0400 Body height 175.26 cm Girma Sunny [employer] Work Phone: [facility] 12-19-2024 22:20-0400 Body mass index (BMI) [Ratio] 47.5 kg/m2 Girma Sunny [employer] Work Phone: [facility] 12-19-2024 22:20-0400 Body weight 146.1 kg Girma Sunny [employer] Work Phone: [facility] 10-04-2024 21:13-0400 Reason For Taking VItal Signs DR ROBERT SCHMITZ MD [facility] 10-04-2024 19:37-0400 Heart rate 71 /min DR ROBERT Walls [facility] 10-04-2024 19:37-0400 Reason For Taking VItal Signs DR ROBERT SHCMITZ MD [facility] 10-04-2024 19:37-0400 Respiratory rate 18 /min DR ROBERT Walls [address] [place] [address] 10-04-2024 19:14-0400 Heart rate 66 /min DR ROBERT Walls [address] [place] [address] 10-04-2024 19:14-0400 [address] Pressure Cuff Size DR ROBERT SCHMITZ MD [address] [place] [address] 10-04-2024 19:14-[address] ROBERT SCHMITZ MD [address] [place] [address] 10-04-2024 19:14-[address] ROBERT SCHMITZ MD [address] [place] [address] 10-04-2024 19:14-0400 Body temperature 97.7 [degF] DR ROBERT Walls [address] [place] [address] 10-04-2024 19:14-0400 Diastolic Blood Pressure Non-Invasive 90 mm[Hg] DR ROBERT SCHMITZ MD [address] [place] [address] 10-04-2024 19:14-0400 Reason For Taking VItal Signs DR ROBERT SCHMITZ MD [address] [place] [address] 10-04-2024 19:14-0400 Respiratory rate 16 /min DR ROBERT Walls [address] [place] [address] 10-04-2024 19:14-0400 Systolic Blood Pressure Non-Invasive 138 mm[Hg] DR ROBERT SCHMITZ MD [address] [place] [address] 10-04-2024 16:28-0400 Heart rate 72 /min DR ROBERT Walls [address] [place] [address] 10-04-2024 15:31-0400 Heart rate 72 /min DR ROBERT Walls [address] [place] [address] 10-04-2024 15:31-0400 Blood Pressure Cuff Size DR ROBERT SCHMITZ MD [address] [place] [address] 10-04-2024 15:31-[address] ROBERT SCHMITZ MD [address] [place] [address] 10-04-2024 15:31-[address] ROBERT SCHMITZ MD [address] [place] [address] 10-04-2024 15:31-0400 Body temperature 97.52 [degF] DR ROBERT Walls [address] [place] [address] 10-04-2024 15:31-0400 Diastolic Blood Pressure Non-Invasive 72 mm[Hg] DR ROBERT SCHMITZ MD [address] [place] [address] 10-04-2024 15:31-0400 Respiratory rate 16 /min DR ROBERT Walls [address] [place] [address] 10-04-2024 15:31-0400 Systolic Blood Pressure Non-Invasive 120 mm[Hg] DR ROBERT SCHMITZ MD [address] [place] [address] 10-04-2024 15:02-0400 Blood Pressure Cuff Size DR ROBERT SCHMITZ MD [address] [place] [address] 10-04-2024 15:02-[address] ROBERT SCHMITZ MD [address] [place] [address] 10-04-2024 15:02-[address] ROBERT SCHMITZ MD [address] [place] [address] 10-04-2024 15:02-0400 Body temperature 97.88 [degF] DR ROBERT Walls [address] [place] [address] 10-04-2024 15:02-0400 Diastolic Blood Pressure Non-Invasive 78 mm[Hg] DR ROBERT SCHMITZ MD [address] [place] [address] 10-04-2024 15:02-0400 Heart rate 73 /min DR ROBERT Walls [address] [place] [address] 10-04-2024 15:02-0400 Systolic Blood Pressure Non-Invasive 116 mm[Hg] DR ROBERT SCHMITZ MD [address] [place] [address] 10-04-2024 11:59-0400 Heart rate 61 /min DR ROBERT Walls [address] [place] [address] 10-04-2024 07:54-0400 Heart rate 66 /min DR ROBERT Walls [address] [place] [address] 10-04-2024 07:46-0400 Heart rate 64 /min DR ROBERT Walls [address] [place] [address] 10-03-2024 16:05-0400 Heart rate 74 /min DR ROBERT Walls [address] [place] [address] 10-02-2024 06:28-0400 Body height 177.[address] ROBERT Walls [address] [place] [address] 10-02-2024 06:28-0400 Body weight 140.[address] ROBERT Walls [address] 10-02-2024 06:28-0400 Body weight 44.38 kg/m2 DR ROBERT Walls [address] 10-02-2024 05:00-0400 Diastolic Blood Pressure Non-Invasive 68 mm[Hg] DELORES DURESKA DO [facility] 10-02-2024 05:00-0400 Heart rate 116 /min DELORES DURESKA DO [facility] 10-02-2024 05:00-0400 Systolic Blood Pressure Non-Invasive 108 mm[Hg] DELORES DURESKA DO [facility] 10-02-2024 04:00-0400 Diastolic Blood Pressure Non-Invasive 70 mm[Hg] DELORES DURESKA DO [facility] 10-02-2024 04:00-0400 Heart rate 125 /min DELORES DURESKA DO [facility] 10-02-2024 04:00-0400 Systolic Blood Pressure Non-Invasive 101 mm[Hg] DELORES DURESKA DO [facility] 10-02-2024 02:31-0400 Body weight 143 kg DELORES DURESKA DO [facility] 10-02-2024 02:15-0400 Diastolic Blood Pressure Non-Invasive 90 mm[Hg] DELORES BARROSOESKA DO [facility] 10-02-2024 02:15-0400 Heart rate 120 /min DELORES BARROSOESKA DO [facility] 10-02-2024 02:15-0400 Respiratory rate 18 /min DELORES BARROSOESKA DO [facility] 10-02-2024 02:15-0400 Systolic Blood Pressure Non-Invasive 106 mm[Hg] DELORES VOKA DO [facility] 10-02-2024 00:27-0400 Body temperature 98.06 [degF] DELORES VOKA DO [facility] 02-01-2024 16:08-0400 Heart rate 72 /min CINDY HERNANDEZ MD [facility] 02-01-2024 15:25-0400 Heart rate 68 /min CINDY HERNANDEZ MD [facility] 02-01-2024 15:25-0400 Respiratory rate 18 /min CINDY HERNANDEZ MD [facility] 02-01-2024 14:44-0400 Body temperature 98.6 [degF] CINDY HERNANDEZ MD [facility] 02-01-2024 14:44-0400 Diastolic Blood Pressure Non-Invasive 82 mm[Hg] CINDY HERNANDEZ MD [facility] 02-01-2024 14:44-0400 Heart rate 72 /min CINDY HERNANDEZ MD [facility] 02-01-2024 14:44-0400 Respiratory rate 18 /min CINDY HERNANDEZ MD [facility] 02-01-2024 14:44-0400 Systolic Blood Pressure Non-Invasive 119 mm[Hg] CINDY HERNANDEZ MD [facility] 02-01-2024 11:12-0400 Body temperature 98.24 [degF] CINDY HERNANDEZ MD [facility] 02-01-2024 11:12-0400 Diastolic Blood Pressure Non-Invasive 72 mm[Hg] CINDY HERNANDEZ MD [facility] 02-01-2024 11:12-0400 Heart rate 82 /min CINDY HERNANDEZ MD [facility] 02-01-2024 11:12-0400 Reason For Taking VItal Signs CINDY HERNANDEZ MD [facility] 02-01-2024 11:12-0400 Respiratory rate 18 /min CINDY HERNANDEZ MD [facility] 02-01-2024 11:12-0400 Systolic Blood Pressure Non-Invasive 101 mm[Hg] CINDY HERNANDEZ MD [facility] 02-01-2024 09:16-0400 Heart rate 79 /min CINDY HERNANDEZ MD [facility] 02-01-2024 09:04-0400 Blood Pressure Cuff Size CINDY HERNANDEZ MD [facility] 02-01-2024 09:04-0400 Blood Pressure Location CINDY HRENANDEZ MD [facility] 02-01-2024 09:04-0400 Blood Pressure Method CINDY HERNANDEZ MD [facility] 02-01-2024 09:04-0400 Body temperature 98.96 [degF] CINDY HERNANDEZ MD [facility] 02-01-2024 09:04-0400 Diastolic Blood Pressure Non-Invasive 64 mm[Hg] CINDY HERNANDEZ MD [facility] 02-01-2024 09:04-0400 Heart rate 84 /min CINDY HERNANDEZ MD [facility] 02-01-2024 09:04-0400 Reason For Taking VItal Signs CINDY HERNANDEZ MD [facility] 02-01-2024 09:04-0400 Systolic Blood Pressure Non-Invasive 105 mm[Hg] CINDY HERNANDEZ MD [facility] 02-01-2024 07:04-0400 Heart rate 60 /min CINDY HERNANDEZ MD [facility] 02-01-2024 03:35-0400 Heart rate 80 /min CINDY HERNANDEZ MD [facility] 02-01-2024 03:35-0400 Mean blood pressure 73 mm[Hg] CINDY HERNANDEZ MD [facility] 02-01-2024 03:35-0400 Reason For Taking VItal Signs CINDY HERNANDEZ MD [facility] 01-31-2024 23:23-0400 Heart rate 84 /min CINDY HERNANDEZ MD [facility] 01-31-2024 23:23-0400 Mean blood pressure 74 mm[Hg] CINDY HERNANDEZ MD [facility] 01-31-2024 18:38-0400 Mean blood pressure 79 mm[Hg] CINDY HERNANDEZ MD [facility] 01-31-2024 02:56-0400 Body height 175 cm CINDY HERNANDEZ MD [facility] 01-31-2024 02:56-0400 Body weight 149.1 kg CINDY HERNANDEZ MD [facility] 01-31-2024 02:56-0400 Body weight 48.69 kg/m2 CINDY HERNANDEZ MD [facility] 01-31-2024 01:18-[address] SAMY JONES MD [facility] 01-31-2024 01:18-[address] SAMY JONES MD [facility] 01-31-2024 01:18-0400 Diastolic Blood Pressure Non-Invasive 71 mm[Hg] DR SAMY JONES MD [facility] 01-31-2024 01:18-0400 Heart rate 90 /min DR SAMY JONES MD [facility] 01-31-2024 01:18-0400 Mean blood pressure 82 mm[Hg] DR SAMY JONES MD [facility] 01-31-2024 01:18-0400 Reason For Taking VItal Signs DR SAMY JONES MD [facility] 01-31-2024 01:18-0400 Respiratory rate 18 /min DR SAMY JONES MD [facility] 01-31-2024 01:18-0400 Systolic Blood Pressure Non-Invasive 111 mm[Hg] DR SAMY JONES MD [facility] 01-31-2024 01:07-[address] SAMY JONES MD [facility] 01-31-2024 01:07-[address] SAMY JONES MD [facility] 01-31-2024 01:07-0400 Diastolic Blood Pressure Non-Invasive 61 mm[Hg] DR SAMY JONES MD [facility] 01-31-2024 01:07-0400 Heart rate 85 /min DR SAMY JONES MD [facility] 01-31-2024 01:07-0400 Mean blood pressure 71 mm[Hg] DR SAMY JONES MD [facility] 01-31-2024 01:07-0400 Reason For Taking VItal Signs DR SAMY JONES MD [facility] 01-31-2024 01:07-0400 Respiratory rate 12 /min DR SAMY JONES MD [facility] 01-31-2024 01:07-0400 Systolic Blood Pressure Non-Invasive 90 mm[Hg] DR SAMY JONES MD [facility] 01-31-2024 00:58-[address] SAMY JONES MD [facility] 01-31-2024 00:58-[address] SAMY JONES MD [facility] 01-31-2024 00:58-0400 Diastolic Blood Pressure Non-Invasive 64 mm[Hg] DR SAMY JONES MD [facility] 01-31-2024 00:58-0400 Heart rate 89 /min DR SAMY JONES MD [facility] 01-31-2024 00:58-0400 Mean blood pressure 76 mm[Hg] DR SAMY JONES MD [facility] 01-31-2024 00:58-0400 Reason For Taking VItal Signs DR SAMY JONES MD [facility] 01-31-2024 00:58-0400 Respiratory rate 13 /min DR SAMY JONES MD [facility] 01-31-2024 00:58-0400 Systolic Blood Pressure Non-Invasive 97 mm[Hg] DR SAMY JONES MD [facility] 01-30-2024 20:22-0400 SaO2% (BldA) [Mass fraction] 88.8 % DR SAMY JONES MD [facility] 01-30-2024 20:15-0400 Body height 175.[address] SAMY JONES MD [facility] 01-30-2024 20:15-0400 Body temperature 99.32 [degF] DR SAMY JONES MD [facility] 01-30-2024 20:15-0400 Body weight 145.[address] SAMY JONES MD [facility] 01-30-2024 20:15-0400 Heart rate 133 /min DR SAMY OJNES MD [facility] 08-09-2023 21:07-0400 Blood Pressure Cuff Size DR OLLIE BROOKE MD [facility] 08-09-2023 21:07-[address] OLLIE BROOKE MD [facility] 08-09-2023 21:07-[address] OLLIE BROOKE MD [facility] 08-09-2023 21:07-0400 Body height 177.[address] OLLIE BROOKE MD [facility] 08-09-2023 21:07-0400 Body temperature 96.98 [degF] DR OLLIE BROOKE MD [facility] 08-09-2023 21:07-0400 Body weight 155.[address] OLLIE BROOKE MD [facility] 08-09-2023 21:07-0400 Diastolic Blood Pressure Non-Invasive 78 mm[Hg] DR OLLIE BROOKE MD [facility] 08-09-2023 21:07-0400 Heart rate 70 /min DR OLLIE BROOKE MD [facility] 08-09-2023 21:07-0400 Reason For Taking VItal Signs DR OLLIE BROOKE MD [facility] 08-09-2023 21:07-0400 Respiratory rate 22 /min DR OLLIE BROOKE MD [facility] 08-09-2023 21:07-0400 Systolic Blood Pressure Non-Invasive 121 mm[Hg] DR OLLIE BROOKE MD [facility] 06-13-2023 01:18-0500 Diastolic Blood Pressure Non-Invasive 78 mm[Hg] DEMI HUSTON MD [facility] 06-13-2023 01:18-0500 Heart rate 80 /min DEMI HUSTON MD [facility] 06-13-2023 01:18-0500 Respiratory rate 18 /min DEMI HUSTON MD [facility] 06-13-2023 01:18-0500 Systolic Blood Pressure Non-Invasive 142 mm[Hg] DEMI HUSTON MD [facility] 06-13-2023 00:35-0500 Heart rate 74 /min DEMI HUSTON MD [facility] 06-13-2023 00:35-0500 Respiratory rate 20 /min DEMI HUSTON MD [facility] 06-13-2023 00:03-0500 Body temperature 97.7 [degF] DEMI HUSTON MD [facility] 06-13-2023 00:03-0500 Diastolic Blood Pressure Non-Invasive 84 mm[Hg] DEMI HUSTON MD [facility] 06-13-2023 00:03-0500 Heart rate 67 /min DEMI HUSTON MD [facility] 06-13-2023 00:03-0500 Respiratory rate 20 /min DEMI HUSTON MD [facility] 06-13-2023 00:03-0500 Systolic Blood Pressure Non-Invasive 153 mm[Hg] DEMI HUSTON MD [facility] 06-09-2023 21:35-0500 Heart rate 60 /min MOY WATTS MD [facility] 06-09-2023 21:35-0500 Reason For Taking VItal Signs MOY WATTS MD [facility] 06-09-2023 21:35-0500 Respiratory rate 18 /min MOY WATTS MD [address] [place] [address] 06-09-2023 19:40-0500 Blood Pressure Cuff Size MOY WATTS MD [address] [place] [address] 06-09-2023 19:40-0500 Blood Pressure Location MOY WATTS MD [address] [place] [address] 06-09-2023 19:40-0500 Blood Pressure Method MOY WATTS MD [address] [place] [address] 06-09-2023 19:40-0500 Body temperature 98.24 [degF] MOY WATTS MD [address] [place] [address] 06-09-2023 19:40-0500 Diastolic Blood Pressure Non-Invasive 66 mm[Hg] MOY WATTS MD [address] [place] [address] 06-09-2023 19:40-0500 Heart rate 63 /min MOY WATTS MD [address] [place] [address] 06-09-2023 19:40-0500 Reason For Taking VItal Signs MOY WATTS MD [address] [place] [address] 06-09-2023 19:40-0500 Respiratory rate 18 /min MOY WATTS MD [address] [place] [address] 06-09-2023 19:40-0500 Systolic Blood Pressure Non-Invasive 112 mm[Hg] MOY WATTS MD [address] [place] [address] 06-09-2023 19:29-0500 Heart rate 63 /min MOY WATTS MD [address] [place] [address] 06-09-2023 16:56-0500 Heart rate 66 /min MOY WATTS MD [address] [place] [address] 06-09-2023 16:04-0500 Blood Pressure Cuff Size MOY WATTS MD [address] [place] [address] 06-09-2023 16:04-0500 Blood Pressure Location MOY WATTS MD [address] [place] [address] 06-09-2023 16:04-0500 Blood Pressure Method MOY WATTS MD [address] [place] [address] 06-09-2023 16:04-0500 Body temperature 97.88 [degF] MOY WATTS MD [address] [place] [address] 06-09-2023 16:04-0500 Diastolic Blood Pressure Non-Invasive 78 mm[Hg] MOY WATTS MD [address] [place] [address] 06-09-2023 16:04-0500 Reason For Taking VItal Signs MOY WATTS MD [address] [place] [address] 06-09-2023 16:04-0500 Respiratory rate 18 /min MOY WATTS MD [address] [place] [address] 06-09-2023 16:04-0500 Systolic Blood Pressure Non-Invasive 138 mm[Hg] MOY WATTS MD [address] [place] [address] 06-09-2023 11:17-0500 Blood Pressure Cuff Size MOY WATTS MD [address] [place] [address] 06-09-2023 11:17-0500 Blood Pressure Location MOY WATTS MD [address] [place] [address] 06-09-2023 11:17-0500 Blood Pressure Method MOY WATTS MD [address] [place] [address] 06-09-2023 11:17-0500 Body temperature 97.88 [degF] MOY WATTS MD [address] [place] [address] 06-09-2023 11:17-0500 Diastolic Blood Pressure Non-Invasive 64 mm[Hg] MOY WATTS MD [address] [place] [address] 06-09-2023 11:17-0500 Systolic Blood Pressure Non-Invasive 126 mm[Hg] MOY WATTS MD [address] [place] [address] 06-09-2023 08:54-0500 Heart rate 66 /min MOY WATTS MD [address] [place] [address] 06-08-2023 23:49-0500 Mean blood pressure 77 mm[Hg] MOY WATTS MD [address] [place] [address] 06-08-2023 17:50-0500 Heart rate 65 /min MOY WATTS MD [address] [place] [address] 06-08-2023 14:06-0500 Heart rate 58 /min MOY WATTS MD [address] [place] [address] 06-08-2023 07:05-0500 Mean blood pressure 90 mm[Hg] MOY WATTS MD [address] [place] [address] 06-07-2023 13:36-0500 Body height 176 cm MOY WATTS MD [address] [place] [address] 06-07-2023 13:36-0500 Body weight 152.9 kg MOY WATTS MD [address] [place] [address] 06-07-2023 13:36-0500 Body weight 49.36 kg/m2 MOY WATTS MD [address] [place] [address] 05-05-2023 20:50-0500 Diastolic Blood Pressure Non-Invasive 79 mm[Hg] DEMI HUSTON MD [facility] 05-05-2023 20:50-0500 Heart rate 84 /min DEMI HUSTON MD [facility] 05-05-2023 20:50-0500 Respiratory rate 20 /min DEMI HUSTON MD [facility] 05-05-2023 20:50-0500 Systolic Blood Pressure Non-Invasive 132 mm[Hg] DEMI HUSTON MD [facility] 05-05-2023 17:16-0500 Body height 175.3 cm DEMI HUSTON MD [facility] 05-05-2023 17:16-0500 Body temperature 97.88 [degF] DEMI HUSTON MD [facility] 05-05-2023 17:16-0500 Body weight 144.4 kg DEMI HUSTON MD [facility] 05-05-2023 17:16-0500 Diastolic Blood Pressure Non-Invasive 88 mm[Hg] DEMI HUSTON MD [facility] 05-05-2023 17:16-0500 Heart rate 68 /min DEMI HUSTON MD [facility] 05-05-2023 17:16-0500 Respiratory rate 20 /min DEMI HUSTON MD [facility] 05-05-2023 17:16-0500 Systolic Blood Pressure Non-Invasive 142 mm[Hg] DEMI HUSTON MD [facility] 02-12-2023 07:06-0400 Body height 175.26 cm [facility] 02-12-2023 07:06-0400 Body mass index (BMI) [Ratio] 49.5 kg/m2 [facility] 02-12-2023 07:06-0400 Body temperature 97.8 [degF] [facility] 02-12-2023 07:06-0400 Body weight 152.1 kg [facility] 02-12-2023 07:06-0400 Diastolic blood pressure 101 mm[Hg] [facility] 02-12-2023 07:06-0400 Heart rate 98 /min [facility] 02-12-2023 07:06-0400 Respiratory rate 16 /min [facility] 02-12-2023 07:06-0400 SaO2% (BldA) [Mass fraction] 95 % [facility] 02-12-2023 07:06-0400 Systolic blood pressure 132 mm[Hg] [facility] 12-23-2022 07:51-0400 Diastolic Blood Pressure Non-Invasive 68 1 MOY WATTS MD [address] [place] [address] 12-23-2022 07:51-0400 Heart rate 61 /min MOY WATTS MD [address] 12-23-2022 07:51-0400 Respiratory rate 12 /min MOY WATTS MD [address] 12-23-2022 07:51-0400 Systolic Blood Pressure Non-Invasive 106 1 MOY WATTS MD [address] [place] [address] 12-23-2022 07:39-0400 Diastolic Blood Pressure Non-Invasive 60 1 MOY WATTS MD [address] 12-23-2022 07:39-0400 Heart rate 64 /min MOY WATTS MD [address] [place] [address] 12-23-2022 07:39-0400 Respiratory rate 20 /min MOY WATTS MD [address] [place] [address] 12-23-2022 07:39-0400 Systolic Blood Pressure Non-Invasive 97 1 MOY WATTS MD [facility] 12-23-2022 07:34-0400 Diastolic Blood Pressure Non-Invasive 59 1 MOY WATTS MD [facility] 12-23-2022 07:34-0400 Heart rate 62 /min MOY WATTS MD [address] [place] [address] 12-23-2022 07:34-0400 Respiratory rate 16 /min MOY WATTS MD [address] [place] [address] 12-23-2022 07:34-0400 Systolic Blood Pressure Non-Invasive 74 1 MOY WATTS MD [facility] 12-23-2022 07:24-0400 Body temperature 97.34 [degF] MOY WATTS MD [address] 12-23-2022 07:20-0400 Heart rate 73 /min MOY WATTS MD [facility] 12-23-2022 07:20-0400 Respiratory Rate - Anes 22 br/min MOY WATTS MD [facility] 12-23-2022 07:15-0400 Heart rate 91 /min MOY WATTS MD [facility] 12-23-2022 07:15-0400 Respiratory Rate - Anes 18 br/min MOY WATTS MD [address] [place] [address] 12-23-2022 06:37-0400 Body height 175.3 cm MOY WATTS MD [facility] 12-23-2022 06:34-0400 Body height 175.3 cm MOY WATTS MD [facility] 12-23-2022 06:34-0400 Body temperature 95.54 [degF] MOY WATTS MD [facility] 12-23-2022 06:34-0400 Body weight 144 kg MOY WATTS MD [facility] 10-27-2022 06:49-0400 Body temperature 97.7 [degF] DR OLLIE BROOKE MD [facility] 10-27-2022 06:49-0400 Diastolic Blood Pressure Non-Invasive [address] OLLIE BROOKE MD [facility] 10-27-2022 06:49-0400 Heart rate 103 /min DR OLLIE BROOKE MD [facility] 10-27-2022 06:49-0400 Respiratory rate 22 /min DR OLLIE BROOKE MD [facility] 10-27-2022 06:49-0400 Systolic Blood Pressure Non-Invasive [address] OLLIE BROOKE MD [facility] 10-27-2022 06:14-0400 Body temperature 98.06 [degF] DR OLLIE BROOKE MD [facility] 10-27-2022 06:14-0400 Diastolic Blood Pressure Non-Invasive [address] OLLIE BROOKE MD [facility] 10-27-2022 06:14-0400 Heart rate 105 /min DR OLLIE BROOKE MD [facility] 10-27-2022 06:14-0400 Respiratory rate 22 /min DR OLLIE BROOKE MD [facility] 10-27-2022 06:14-0400 Systolic Blood Pressure Non-Invasive [address] OLLIE BROOKE MD [facility] 10-27-2022 05:05-0400 Body height 175.[address] OLLIE BROOKE MD [facility] 10-27-2022 05:05-0400 Body temperature 98.06 [degF] DR OLLIE BROOKE MD [facility] 10-27-2022 05:05-0400 Body weight [address] OLLIE BROOKE MD [facility] 10-27-2022 05:05-0400 Diastolic Blood Pressure Non-Invasive [address] OLLIE BROOKE MD [facility] 10-27-2022 05:05-0400 Heart rate 88 /min DR OLLIE BROOKE MD [facility] 10-27-2022 05:05-0400 Respiratory rate 22 /min DR OLLIE BROOKE MD [facility] 10-27-2022 05:05-0400 Systolic Blood Pressure Non-Invasive [address] OLLIE BROOKE MD [facility] 10-25-2022 01:00-0400 Heart rate 99 /min DEMI HUSTON MD [facility] 10-25-2022 01:00-0400 Systolic Blood Pressure Non-Invasive 139 1 DEMI HUSTON MD [facility] 10-25-2022 00:00-0400 Diastolic Blood Pressure Non-Invasive 94 1 DEMI HUSTON MD [facility] 10-25-2022 00:00-0400 Heart rate 102 /min DEMI HUSTON MD [facility] 10-25-2022 00:00-0400 Respiratory rate 18 /min DEMI HUSTON MD [facility] 10-25-2022 00:00-0400 Systolic Blood Pressure Non-Invasive 132 1 DEMI HUSTON MD [facility] 10-24-2022 23:21-0400 Body height 175.3 cm DEMI HUSTON MD [facility] 10-24-2022 23:21-0400 Body temperature 98.24 [degF] DEMI HUSTON MD [facility] 10-24-2022 23:21-0400 Body weight 139 kg DEMI HUSTON MD [facility] 10-24-2022 23:21-0400 Diastolic Blood Pressure Non-Invasive 99 1 DEMI HUSTON MD [facility] 10-24-2022 23:21-0400 Heart rate 105 /min DEMI HUSTON MD [facility] 10-24-2022 23:21-0400 Respiratory rate 19 /min DEMI HUSTON MD [facility] 10-24-2022 23:21-0400 Systolic Blood Pressure Non-Invasive 146 1 DEMI HUSTON MD [facility] 10-23-2022 10:51-0400 Diastolic blood pressure 76 mm[Hg] [facility] 10-23-2022 10:51-0400 Heart rate 73 /min [facility] 10-23-2022 10:51-0400 Respiratory rate 15 /min [facility] 10-23-2022 10:51-0400 SaO2% (BldA) [Mass fraction] 98 % [facility] 10-23-2022 10:51-0400 Systolic blood pressure 148 mm[Hg] [facility] 10-23-2022 05:58-0400 Body height 175.26 cm [facility] 10-23-2022 05:58-0400 Body mass index (BMI) [Ratio] 47.7 kg/m2 [facility] 10-23-2022 05:58-0400 Body temperature 97.6 [degF] [facility] 10-23-2022 05:58-0400 Body weight 146.8 kg [facility] 07-15-2022 21:40-0500 Diastolic Blood Pressure Non-Invasive 85 1 JEREMIE MCCORMACK MD [facility] 07-15-2022 21:40-0500 Heart rate 72 /min JEREMIE MCCORMACK MD [facility] 07-15-2022 21:40-0500 Respiratory rate 18 /min JEREMIE MCCORMACK MD [facility] 07-15-2022 21:40-0500 Systolic Blood Pressure Non-Invasive 148 1 JEREMIE MCCORMACK MD [facility] 07-15-2022 21:10-0500 Reason For Taking VItal Signs JEREMIE MCCORMACK MD [facility] 07-15-2022 20:42-0500 Body temperature 98.06 [degF] JEREMIE MCCORMACK MD [facility] 07-15-2022 20:42-0500 Diastolic Blood Pressure Non-Invasive 95 1 JEREMIE MCCORMACK MD [facility] 07-15-2022 20:42-0500 Heart rate 81 /min JEREMIE MCCORMACK MD [facility] 07-15-2022 20:42-0500 Respiratory rate 18 /min JEREMIE MCCORMACK MD [facility] 07-15-2022 20:42-0500 Systolic Blood Pressure Non-Invasive 149 1 JEREMIE MCCORMACK MD [facility] 07-11-2022 08:21-0500 Body height 175.3 cm MALORIE PEGUERO MD [facility] 07-11-2022 08:21-0500 Body temperature 97.7 [degF] MALORIE PEGUERO MD [facility] 07-11-2022 08:21-0500 Body weight 148.6 kg MALORIE PEGUERO MD [facility] 07-11-2022 08:21-0500 Diastolic Blood Pressure Non-Invasive 80 1 MALORIE PEGUERO MD [facility] 07-11-2022 08:21-0500 Heart rate 88 /min MALORIE PEGUERO MD [facility] 07-11-2022 08:21-0500 Respiratory rate 24 /min MALORIE PEGUERO MD [facility] 07-11-2022 08:21-0500 Systolic Blood Pressure Non-Invasive 150 1 MALORIE PEGUERO MD [facility] Encounters Encounter Date Encounter Type Care Provider Facility Start: 12-19-2024 End: 12-20-2024 Emergency department patient visit Girma IBARRA Work Phone: -Emergency Department Work Phone: Start: 12-10-2024 End: 12-13-2024 Evaluation and management of inpatient DELORES MURO DO [facility] Start: 12-04-2024 End: 12-04-2024 Emergency department patient visit JEREMIE MCCORMACK MD [facility] Start: 11-24-2024 End: 11-28-2024 Evaluation and management of inpatient DR SONNY MAX MD [facility] Start: 11-24-2024 End: 11-24-2024 Emergency department patient visit CIRILO PATEL DO [facility] Start: 11-06-2024 ambulatory Dolly HOLCOMB Facili ty:[facility] Start: 11-06-[address] Dolly Marino MD -[facility] Start: 11-04-2024 ambulatory Dolly HOLCOMB Facili ty:[facility] Start: 11-04-[address] Dolly Marino MD -[facility] Start: 10-30-2024 ambulatory Girma Correa NP Facil ity:[facility] Start: 10-30-[address] Dolly Marino MD -[facility] Start: 10-28-2024 ambulatory Girma Correa NP Facil ity:[facility] Start: 10-28-[address] Dolly Marino MD -[facility] Start: 10-24-2024 ambulatory Girma Correa NP Facil ity:[facility] Start: 10-24-[address] Dolly Marino MD -[facility] Start: 10-16-2024 End: 10-23-2024 Evaluation and management of inpatient NANI QUINTANA DO [facility] Start: 10-16-2024 End: 10-16-2024 Emergency department patient visit JAKE MAXWELL [facility] Start: 10-02-2024 End: 10-04-2024 Evaluation and management of inpatient DR ROBERT SCHMITZ MD [facility] Start: 10-02-2024 End: 10-02-2024 Emergency department patient visit DELORES TAVOIZA [facility] Start: 09-05-2024 ambulatory GIRMA SUNNY [facility] Facility:[facility] Start: 08-29-2024 End: 08-29-2024 Emergency department patient visit GIRMA CORREA [facility]IG[facility] Facility:[facility] Start: 08-27-2024 End: 08-27-2024 ambulatory GIRMA CORREA [facility]IG[facility]ER [facility] Start: 08-13-2024 End: 08-13-2024 Emergency department patient visit DR WILNER JOE MD Facility:[facility] Start: 05-14-2024 End: 05-14-2024 ambulatory GIRMA USNNY [facility]IG[facility] Facility[facility] Start: 05-14-2024 End: 05-14-2024 Patient encounter procedure GIRMA CORREA [facility]IG[facility]ING FLUID TENDER [facility] Start: 03-25-2024 ambulatory GIRMA SUNNY [facility] NAVIGATOR-CASING FLUID TENDER Facility:[facility] Start: 03-25-2024 End: 03-29-2024 ambulatory GIRMA SUNNY COMMUNITY HEALTH NAVIGATOR-CASING FLUID TENDER Facility:[facility] Start: 03-25-2024 End: 03-29-2024 Outreach Lab HELEN YANES COMMUNITY HEALTH NAVIGATOR-CASING FLUID TENDER [facility] Start: 02-16-2024 End: 02-16-2024 ambulatory GIRMA WELLSAJ COMMUNITY HEALTH NAVIGATOR-CASING FLUID TENDER Facility:[facility] Start: 02-16-2024 End: 02-16-2024 Patient encounter procedure GRIMA WELLSAJ COMMUNITY HEALTH NAVIGATOR-CASING FLUID TENDER [facility] Start: 02-12-2024 End: 02-12-2024 ambulatory GIRMA CORREA COMMUNITY HEALTH NAVIGATOR-CASING FLUID TENDER Facility:[facility] Start: 02-12-2024 End: 02-12-2024 Patient encounter procedure GIRMA CORREA COMMUNITY HEALTH NAVIGATOR-CASING FLUID TENDER [facility] Start: 01-31-2024 End: 02-01-2024 Evaluation and management of inpatient GIRMA CORREA Facility:A Start: 01-30-2024 End: 01-31-2024 Emergency department patient visit DR SAMY JONES MD [facility] Start: 10-11-2023 End: 10-11-2023 ambulatory [facility] Start: 08-22-2023 End: 08-22-2023 ambulatory GIRMA CORREA Facility:[facility] Start: 08-22-2023 End: 08-22-2023 Patient encounter procedure GIRMA CORREA COMMUNITY HEALTH NAVIGATOR-CASING FLUID TENDER [facility] Start: 08-09-2023 End: 08-09-2023 Emergency department patient visit DR OLLIE BROOKE MD [facility] Start: 08-08-2023 End: 08-12-2023 ambulatory GIRMA CORREA Facility:[facility] Start: 08-08-2023 End: 08-12-2023 Outreach Lab GIMRA CORREA COMMUNITY HEALTH NAVIGATOR-CASING FLUID TENDER [facility] Start: 08-08-2023 End: 08-08-2023 ambulatory GIRMA CORREA Facility:[facility] Start: 06-13-2023 End: 06-13-2023 Emergency department patient visit DEMI HUSTON MD [facility] Start: 06-07-2023 End: 06-09-2023 Evaluation and management of inpatient MOY WATTS MD [facility] Start: 05-05-2023 End: 05-05-2023 Emergency department patient visit DEMI HUSTON MD [facility] Start: 05-03-2023 ambulatory JAD Coombs Facility:A Start: 04-03-2023 End: 04-03-2023 ambulatory GIRMA CORREA Facility:[facility] Start: 04-03-2023 End: 04-03-2023 Patient encounter procedure JONNY HOFF COMMUNITY HEALTH NAVIGATOR-CASING FLUID TENDER [facility] Start: 03-22-2023 End: 03-22-2023 ambulatory GIRMA LORSON Facility:[facility] Start: 03-14-2023 ambulatory GIRMA LORSON Facility :[facility] Start: 02-22-2023 ambulatory GIRMA LORSON Facility :[facility] Start: 02-12-2023 End: 02-12-2023 Emergency department patient visit [facility] Work Phone: Start: 02-01-2023 End: 02-01-2023 Patient encounter procedure GIRMA CORREA COMMUNITY HEALTH NAVIGATOR-CASING FLUID TENDER [facility] Start: 12-23-2022 End: 12-23-2022 Minor Procedure MOY WATTS MD [facility] Start: 11-11-2022 End: 11-11-2022 Patient encounter procedure MOY WATTS MD [facility] Start: 10-27-2022 End: 10-27-2022 Emergency department patient visit DR OLLIE BROOKE MD [facility] Start: 10-24-2022 End: 10-25-2022 Emergency department patient visit DEMI HUSTON MD [facility] Start: 10-23-2022 End: 10-23-2022 Emergency department patient visit [facility] Start: 07-15-2022 End: 07-15-2022 Emergency department patient visit JEREMIE MCCORMACK MD [facility] Start: 07-11-2022 End: 07-11-2022 Emergency department patient visit MALORIE PEGUERO MD [facility] Start: 07-05-2022 End: 07-05-2022 ambulatory [facility] Start: 04-12-2022 End: 04-12-2022 [facility] Start: 03-11-2022 ambulatory [facility] Facility: [facility] Start: 01-12-2022 End: 01-12-2022 ambulatory [facility] Start: 08-24-2021 ambulatory [facility] Start: 08-17-2021 End: 08-18-2021 ambulatory [facility] Start: 08-02-2021 ambulatory [facility] [...] or Pulmonary Embolism (PE)CRITICAL VALUE CALLED TO [id number]/25/25 0020 Marquez Swain.RESULTS READ BACK BY SAME. Start: 12-19-2024 Estimated creatinine clearance Girma Correa [facility]OPE P[facility]ER[facility] Work Phone: Start: 10-28-2024 Vitamin D, 25-hydrox y measurement Girma Correa [facility] Work Phone: Comment on above: Vitamin D StatusDefi ciency: <20 ng/mL (50nmol/L)Insufficiency: 20-30 ng/mL (50-75 nmol/L)Sufficiency: 30-100 ng/mL (75-250 nmol/L)Toxicity: >100 ng/mL (>250 nmol/L) Start: 03-25-2024 Excision HELEN LOUISALD COMMUNITY HEALTH NAVIGATOR-CASING FLUID TENDER Comment on above: excision of multilob ulated lipomatous mass right forearm Start: 01-31-2024 Echocardiography CHUN CORREA COMMUNITY HEALTH NAVIGATOR-CASING FLUID TENDER Start: 02-12-2023 SARS-CoV-2 & FLU Ant igen (Rapid) Start: 02-12-2023 Viral antigen assay Start: 02-12-2023 Plain chest X-ray Start: 12-23-2022 Cardioversion JAD WATTS MD Start: 11-11-2022 Echocardiography JONNY HOFF COMMUNITY HEALTH NAVIGATOR-CASING FLUID TENDER Comment on above: 1. Left ventricle: T [...] Date Care Activity Detail Author Start: 12-20-2024 [facility] Start: 12-19-2024 [facility] Start: 10-23-2022 [facility] Patient Education [facility] Work Phone: Patient referral [facility] Work Phone: Troponin T.cardiac [Mass/volume] in Serum or Plasma by High sensitivity method [facility] Immunizations Immunization Date Immunization Notes Care Provider Fa cili 04-12-2022 influenza virus vaccine, unspecified formulation MOY WATTS MD [facility] Comment on above: Result Comment: 2023: VIS DATE: 01/01/2021 04-12-2022 pneumococcal conjugate vaccine, 13 valent MOY WATTS MD [facility] Comment on above: Result Comment: 2023: VIS DATE: 07/02/2021 09-11-2020 SARS-CoV-2 (COVID-19 ) mRNA-1273 vaccine MOY WATTS MD [facility] 08-14-2020 SARS-CoV-2 (COVID-19 ) mRNA-1273 vaccine MOY WATTS MD [facility] Payers Date Payer Category Payer Self-pay 2024 Medicaid [id number] 2024 Private Health Insurance 5e [id number] 2023 Medicaid [id number] 1970 Unknown [id number] 2.16.8 40.1.568654.3.579.2.1076 1971 Unknown [id number] 2.16. 840.1.323112.3.579.2.297 1971 Unknown [id number] 2.16.8 40.1.040033.3.579.2.627 1971 Unknown [id number] 2.16.8 40.1.144323.3.579.2.627 1971 Unknown [id number] 2.16.8 40.1.233945.3.579.2.627 1971 Unknown [id number] 2.16.8 40.1.992143.3.579.2.627 1971 Unknown [id number] 2.16.8 40.1.605239.3.579.2.627 1971 Unknown [id number] 2.16.8 40.1.991179.3.579.2.627 1971 Unknown [id number] 2.16.8 40.1.461366.3.579.2.627 1971 Unknown [id number] 2.16.8 40.1.177156.3.579.2.627 1971 Unknown [id number] 2.16.8 40.1.127981.3.579.2.627 1971 Unknown [id number] 2.16.8 40.1.500489.3.579.2.627 1971 Unknown [id number] 2.16.8 40.1.716587.3.579.2.627 1971 Unknown [id number] 2.16.8 40.1.846854.3.579.2.627 1971 Unknown [id number] 2.16.8 40.1.618972.3.579.2.627 1971 Unknown [id number] 2.16.8 40.1.632518.3.579.2.627 1971 Unknown [id number] 2.16.8 40.1.609565.3.579.2.651 1971 Unknown [id number] 2.16. 840.1.788507.3.579.2. 1971 Unknown [id number] 2.16. 840.1.375291.3.579.2.7 1971 Unknown [id number] 2.16.8 40.1.146830.3.579.2. 1971 Unknown [id number] 2.16.8 40.1.074961.3.579.2.7 1971 Unknown [id number] 2.16. 840.1.545676.3.579.2. 1971 Unknown [id number] 2.16. 840.1.056267.3.579.2. 1971 Unknown [id number] 2.16. 840.1.886039.3.579.2. 1971 Unknown [id number] 2.16.8 40.1.275692.3.579.2. 1971 Unknown [id number] 2.16.8 40.1.171341.3.579.2. 1971 Unknown [id number] 2.16.8 40.1.857130.3.579.2. 1971 Unknown [id number] 2.16.8 40.1.111736.3.579.2. 1971 Unknown [id number] 2.16.8 40.1.997431.3.579.2.7 1971 Unknown [id number] 2.16.8 40.1.901742.3.579.2. 1971 Unknown [id number] 2.16.8 40.1.865950.3.579.2.7 1971 Unknown [id number] 2.16.8 40.1.644494.3.579.2.7 1971 Unknown [id number] 2.16.8 40.1.864035.3.579.2.627 1971 Unknown [id number] 2.16.8 40.1.345132.3.579.2.627 1971 Unknown [id number] 2.16.8 40.1.011278.3.579.2.627 Unknown [id number] Unknown [id number] 2.16.8 40.1.260938.3.579.2.443 Unknown [id number] 2.16.8 40.1.132521.3.579.2.462 Unknown [id number] 2.16.8 40.1.063849.3.579.2.462 Unknown [id number] 2.16.8 40.1.542199.3.579.2.462 Unknown [id number] 2.16.8 40.1.477438.3.579.2.462 Unknown [id number] 2.16.8 40.1.252716.3.579.2.462 Social History Date Type Detail Facility Start: 07-11-2022 End: 12-19-2024 Tobacco smoking status Ex-smoker (finding) [facility] Start: 1970 Sex Assigned At Male A [facility] Start: 10-23-2022 End: 02-12-2023 Tobacco smoking status PAIS Unknown if ever smoked [facility] Tobacco Nicotine Use: sn uff. Type: Oral (Snuff, Chew). [facility] Comment on above: using NicoDerm patch Stopped chewing snuf f October 2022 Tobacco smoking status [facility] Start: 06-07-2023 End: 08-08-2023 Tobacco smoking status Former smokeless tobacco user, quit more than 30 days ago [facility] Start: 07-11-2022 Sex Male (finding) [facility] Medical Equipment Procedure Code Equipment Code Equipment Origin al Text Equipment Identifier Dates See Instructions , 1 bottle of 100 Test once daily, # 1 EA, 11 Refill(s), Pharmacy: [facility], 177.8, cm, 11/28/23 13:54:00 EDT, Height, 151.4, kg, 11/28/23 13:54:00 EDT, Dosing Weight Start: 12-12-2023 See Instructions , qs 1 month supply Test once daily, # 1 EA, 11 Refill(s), Pharmacy: [facility], 177.8, cm, 11/28/23 13:54:00 EDT, Height, 151.4, kg, 11/28/23 13:54:00 EDT, Dosing Weight Start: 12-12-2023 See Instructions , 1 bottle of 100 Test once daily, # 1 EA, 11 Refill(s), Pharmacy: [facility], 177.8, cm, 11/28/23 13:54:00 EDT, Height, 151.4, kg, 11/28/23 13:54:00 EDT, Dosing Weight Start: 12-12-2023 See Instructions , qs 1 month supply Test once daily, # 1 EA, 11 Refill(s), Pharmacy: [facility], 177.8, cm, 11/28/23 13:54:00 EDT, Height, 151.4, kg, 11/28/23 13:54:00 EDT, Dosing Weight Start: 12-12-2023 See Instructions , 1 bottle of 100 Test once daily, # 1 EA, 11 Refill(s), Pharmacy: [facility], 177.8, cm, 11/28/23 13:54:00 EDT, Height, 151.4, kg, 11/28/23 13:54:00 EDT, Dosing Weight Start: 12-12-2023 See Instructions , qs 1 month supply Test once daily, # 1 EA, 11 Refill(s), Pharmacy: [facility], 177.8, cm, 11/28/23 13:54:00 EDT, Height, 151.4, kg, 11/28/23 13:54:00 EDT, Dosing Weight Start: 12-12-2023 See Instructions , 1 bottle of 100 Test once daily, # 1 EA, 11 Refill(s), Pharmacy: [facility], 177.8, cm, 11/28/23 13:54:00 EDT, Height, 151.4, kg, 11/28/23 13:54:00 EDT, Dosing Weight Start: 12-12-2023 See Instructions , qs 1 month supply Test once daily, # 1 EA, 11 Refill(s), Pharmacy: [facility], 177.8, cm, 11/28/23 13:54:00 EDT, Height, 151.4, kg, 11/28/23 13:54:00 EDT, Dosing Weight Start: 12-12-2023 See Instructions , 1 bottle of 100 Test once daily, # 1 EA, 11 Refill(s), Pharmacy: [facility], 177.8, cm, 11/28/23 13:54:00 EDT, Height, 151.4, kg, 11/28/23 13:54:00 EDT, Dosing Weight Start: 12-12-2023 See Instructions , qs 1 month supply Test once daily, # 1 EA, 11 Refill(s), Pharmacy: [facility], 177.8, cm, 11/28/23 13:54:00 EDT, Height, 151.4, kg, 11/28/23 13:54:00 EDT, Dosing Weight Start: 12-12-2023 See Instructions , 1 bottle of 100 Test once daily, # 1 EA, 11 Refill(s), Pharmacy: [facility], 177.8, cm, 11/28/23 13:54:00 EDT, Height, 151.4, kg, 11/28/23 13:54:00 EDT, Dosing Weight Start: 12-12-2023 See Instructions , qs 1 month supply Test once daily, # 1 EA, 11 Refill(s), Pharmacy: [facility], 177.8, cm, 11/28/23 13:54:00 EDT, Height, 151.4, kg, 11/28/23 13:54:00 EDT, Dosing Weight Start: 12-12-2023 Extremity Beam Machine Operator al Fixator Application L Unknown 10/17/24 Unknown Unknown FDA Start: 10-17-2024 Extremity Beam Machine Operator al Fixator Application L Unknown 10/17/24 Unknown Unknown FDA Start: 10-17-2024 Extremity Beam Machine Operator al Fixator Application L Unknown 10/17/24 Unknown Unknown FDA Start: 10-17-2024 Extremity Beam Machine Operator al Fixator Application L Unknown 10/17/24 Unknown Unknown FDA Start: 10-17-2024 Extremity Beam Machine Operator al Fixator Application L Unknown 10/17/24 Unknown Unknown FDA Start: 10-17-2024 Extremity Beam Machine Operator al Fixator Application L Unknown 10/17/24 Unknown Unknown FDA Start: 10-17-2024 Extremity Beam Machine Operator al Fixator Application L Unknown 10/17/24 Unknown Unknown FDA Start: 10-17-2024 Extremity Beam Machine Operator al Fixator Application L Unknown 10/17/24 Unknown Unknown FDA Start: 10-17-2024 Extremity Beam Machine Operator al Fixator Application L Unknown 10/17/24 Unknown Unknown FDA Start: 10-17-2024 Extremity Beam Machine Operator al Fixator Application L Unknown 10/17/24 Unknown Unknown FDA Start: 10-17-2024 Extremity Beam Machine Operator al Fixator Application L Unknown 10/17/24 Unknown Unknown FDA Start: 10-17-2024 Extremity Beam Machine Operator al Fixator Application L Unknown 10/17/24 Unknown Unknown FDA Start: 10-17-2024 Extremity Beam Machine Operator al Fixator Application L Unknown 10/17/24 Unknown Unknown FDA Start: 10-17-2024 Extremity Beam Machine Operator al Fixator Application L Unknown 10/17/24 Unknown Unknown FDA Start: 10-17-2024 Extremity Beam Machine Operator al Fixator Application L Unknown 10/17/24 Unknown Unknown FDA Start: 10-17-2024 Extremity Beam Machine Operator al Fixator Application L Unknown 10/17/24 Unknown Unknown FDA Start: 10-17-2024 Extremity Beam Machine Operator al Fixator Application L Unknown 10/17/24 Unknown Unknown FDA Start: 10-17-2024 Extremity Beam Machine Operator al Fixator Application L Unknown 10/17/24 Unknown Unknown FDA Start: 10-17-2024 Extremity Beam Machine Operator al Fixator Application L Unknown 10/17/24 Unknown Unknown FDA Start: 10-17-2024 Extremity Beam Machine Operator al Fixator Application L Unknown 10/17/24 Unknown Unknown FDA Start: 10-17-2024 Extremity Beam Machine Operator al Fixator Application L Unknown 10/17/24 Unknown Unknown FDA Start: 10-17-2024 Extremity Beam Machine Operator al Fixator Application L Unknown 10/17/24 Unknown Unknown FDA Start: 10-17-2024 Extremity Beam Machine Operator al Fixator Application L Unknown 10/17/24 Unknown Unknown FDA Start: 10-17-2024 Extremity Beam Machine Operator al Fixator Application L Unknown 10/17/24 Unknown Unknown FDA Start: 10-17-2024 Extremity Beam Machine Operator al Fixator Application L Unknown 10/17/24 Unknown Unknown FDA Start: 10-17-2024 Extremity Beam Machine Operator al Fixator Application L Unknown 10/17/24 Unknown Unknown FDA Start: 10-17-2024 Extremity Beam Machine Operator al Fixator Application L Unknown 10/17/24 Unknown Unknown FDA Start: 10-17-2024 Extremity Beam Machine Operator al Fixator Application L Unknown 10/17/24 Unknown Unknown FDA Start: 10-17-2024 Extremity Beam Machine Operator al Fixator Application L Unknown 10/17/24 Unknown Unknown FDA Start: 10-17-2024 Extremity Beam Machine Operator al Fixator Application L Unknown 10/17/24 Unknown Unknown FDA Start: 10-17-2024 Functional Status Date Assessment Result Facility 10-04-2024 Functional Status Room located n ear nursing station, Door open, Bathroom light on, Non-Slip footwear, Room check performed [facility] 10-04-2024 Functional Status [facility] 10-04-2024 Functional Status [facility] 10-04-2024 Functional Status Breakfast Percent 80 [facility] 10-04-2024 Functional Status [facility] 10-03-2024 Functional Status Done [facility] 10-03-2024 Functional Status Sequential Com pression Device bilateral knee high removed/off [facility] 10-02-2024 Functional Status ID band on, Call device within reach, Bed in low position [facility] 02-01-2024 Functional Status Room check performed [facility] 02-01-2024 Functional Status [facility] 02-01-2024 Functional Status [facility] 02-01-2024 Functional Status Maintained [facility] 01-31-2024 Functional Status [facility] 01-31-2024 Functional Status 7pm-7am [facility] 01-31-2024 Functional Status Living Situati on Lives with family [facility] 01-31-2024 Functional Status Skin Care Prev entative Intervention(s) heel(s)s elevated, padded oxygen tubing, turn and position system [facility] 01-31-2024 Functional Status [facility] 01-31-2024 Functional Status Independent [facility] 01-30-2024 Functional Status Standard Safet y ID band on, Call device within reach, Bed in low position, Wheels locked, Upper/Half-Length side-rails up, personal items within reach, Bedside Cart Locked, Visitor at bedside [facility] 08-09-2023 Functional Status Awake, Resting [facility] 06-13-2023 Functional Status ID band on, Call device within reach [facility] 06-09-2023 Functional Status Room check performed [facility] 06-09-2023 Functional Status [facility] 06-09-2023 Functional Status [facility] 06-09-2023 Functional Status [facility] 06-08-2023 Functional Status Home independe ntly, Lives with significant other [facility] 06-08-2023 Functional Status Skin Care Prev entative Intervention(s) padded oxygen tubing [facility] 06-08-2023 Functional Status bilateral knee high removed/off [facility] 06-07-2023 Functional Status Sensory Deficits None A [facility] 05-05-2023 Functional Status Assistive Device None A [facility] 05-05-2023 Functional Status Standard Safet y ID band on, Call device within reach, Bed in low position, Wheels locked, Visitor at bedside [facility] 12-23-2022 Functional Status Ambulating in room, Awake [facility] 12-23-2022 Functional Status Maintained [facility] 10-27-2022 Functional Status Room check performed [facility] 10-27-2022 Functional Status [facility] 10-25-2022 Functional Status Independent [facility] 10-24-2022 Functional Status Standard Safet y ID band on, Call device within reach, Bed in low position, Wheels locked, Upper/Half-Length side-rails up, personal items within reach, Visitor at bedside [facility] 07-15-2022 Functional Status Room check performed [facility] 07-11-2022 Functional Status Up ad traci [facility] Mental Status Date Assessment Result Facility 12-19-2024 Cognitive function Voice/Name [facility] Work Phone: 10-04-2024 [facility] 10-04-2024 Mental Status [facility] 10-02-2024 Mental Status Orientation Oriented x 4 [facility] 02-01-2024 Mental Status Orientation Oriented x 4 [facility] 02-01-2024 Mental Status [facility] 01-31-2024 Mental Status [facility] 01-31-2024 Mental Status [facility] 01-30-2024 Mental Status Orientation Oriented x 4 [facility] 08-09-2023 [facility] 06-13-2023 Mental Status Orientation Oriented x 4 [facility] 06-09-2023 [facility] Status [facility] 06-09-2023 Mental Status [facility] 06-08-2023 [facility] Status [facility] 05-05-2023 Mental Status Orientation Oriented x 4 [facility] 05-05-2023 Mental Status [facility] 12-23-2022 Mental Status Oriented x 4 [facility] 10-27-2022 Mental Status Orientation Oriented x 4 [facility] 10-27-2022 Mental Status [facility] 10-25-2022 Mental Status Orientation Oriented x 4 [facility] 10-24-2022 Mental Status [facility] 10-23-2022 Cognitive function Voice/Name [facility] Work Phone: 07-15-2022 Mental Status Oriented x 4 [facility] 07-11-2022 Mental Status Oriented x 4 [facility] Clinical Notes 02-07-2022 to 12-20-2024 Note Date & Type Note Facility 12-20-2024 Radiology Diagnostic study note [facility] Imaging Services [address] [place], [place] [address] CTA Chest W/WO Contrast MR#: [id number] Acct: [id number] Name: CARLOS ALBERTO KELLEY Jr. Rep #: [id number] : 1970 M 54 From: Whitley Presley MD PCP: Dr. Jhonatan Garcia DO Status: REG ER Study:CTA Chest W/WO Contrast Date of Exam: 12/20/24 Exam# [id number] Ordering Dr: Nguyễn Al DO PROCEDURE: CTA [...] No embolism, dissection, or pneumonia. Reading [facility] CC: Dr. Jhonatan Garcia DO; Dr. Nguyễn Al DO ~ Refrigeration Technician: Signed [facility] 12-19-2024 Radiology Diagnostic study note [facility] Services [address] [facility] [place] [address] Chest 1 View (Portable) MR#: [id number] Acct: [id number] Name: CARLOS ALBERTO KELLYE Jr. Rep #: [id number] : 1970 M 54 From: Britney Avalos MD PCP: STACEY Pena Status: PRE E R Study:Chest 1 View (Portable) Date of Exam: 12/19/24 Exam# [id number] Ordering Dr: Nguyễn Al DO PROCEDURE: CHEST [...] atelectasis, or edema also possible. Reading Location: [id number] CC: STACEY Correa; Dr. Nguyễn Al DO ~ Refrigeration Technician: Signed [facility] 12-13-2024 Hospital Discharge instructions Patient Education 12/13/2024 [...] breathing. Follow these instructions at home: Take bpyw-yno-alxymma and prescription medicines only as told by [...] 05/20/2014 Document Revised: 04/27/2018 Document Reviewed: 11/30/2016 [employer] Patient Education 2020 [employer]. Follow Up Care 12/10/2024 23:38:17 With:GIRMA CORREA [facility] Address: [address] [facility] [place] [address]- [phone] When: Unknown Comments:Please call to schedule with your PCP when you discharge from [facility]. With:NANI QUINTANA DO, Orthopedic Address: [address] [facility], [place] [address] [phone] When:2-4 days Comments:Please call to schedule to have the external fixator removed. [facility] 12-13-2024 Note Discharge Instructions Thank you for allowing [facility] to assist you with your healthcare needs. The following is important discharge information regarding your hospital visit. Your Care Team [facility] Your Diagnosis Acute respiratory failure with hypoxia Bacteremia Chest pain CHF with cardiomyopathy COPD exacerbation HTN (hypertension) Morbid obesity with BMI of 40.0-44.9, adult Paroxysmal atrial fibrillation Sheltered homelessness Shortness of breath Type 2 diabetes mellitus with hyperlipidemia What to do next Follow Up Appointments Follow Up with GIRMA CORREA APRN-[facility] Where:[address] [facility] [place] [address]- [phone] Additional Information: Please call to schedule with your PCP when you discharge from [facility]. Follow Up with NANI QUINTANA DO Orthopedic When:Within 2-4 days Where:[address] [facility], [place] [address]- [phone] Additional Information: Please call to schedule to [...] breathing. Follow these instructions at home: Take zywo-xuz-soxlama and prescription medicines only as told by [...] 05/20/2014 Document Revised: 04/27/2018 Document Reviewed: 11/30/2016 PathoQuest Patient Education 2020 PathoQuest Inc. Additional Information VACCINATE! IT SAVES LIVES! Members of the community who have not yet received the COVID-19 vaccine and would like to receive it can visit one of [facility] vaccine clinics. There are many vaccine clinic locations within the [facility]. For locations and available times, please visit https://gettheshot.coronavirus.[place].gov/. It is important to note that some COVID mobile vaccine clinics are held outdoors and may be canceled in rainy or stormy conditions. To learn more about pediatric vaccinations (ages 5-11), we invite you to visit the [facility] webpage. https://www.Trema [employer].org/p ages/2021-Zrwjx-Lgkjhohtyuf-Freq tymais-Brhtw-Cbakwqhyg.html To learn more about the COVID-19 vaccine, we invite you to visit the CDC website for a list of frequently asked questions.https://www.cdc.gov/co ronavirus/2019-ncov/vaccines/faq .html [facility] Patient Portal Access Instructions: Stay connected with your healthcare team and access your personal medical information anytime with the [facility] Patient Portal. Please follow the directions below to create your [facility] account: 1.Access the email account you provided upon registration to the hospital/physician office.2.Look for an invitation email from [facility].3.Open the email and access the invitation link: Accept Invitation to [facility].4.Fill in the required orr to create your account. To access your account, visit Liibook/LSAT FreedomOneChart. Click the blue button labeled Access Patient [...] you will allow to register on the [facility] Patient Portal for access to your information. You can also access the [facility] Patient Portal on the [facility] frida. Simply click on Patient Portal and then log into your account. If you would like to receive a full copy of your medical records, please contact the [facility] Medical Records Department by calling [phone], Monday through Monday between 8 a.m. and [...] Call your local pharmacy or go to [email or web address] to find one close to you.3.Make use of household items: Use cat litter or old coffee grounds to dispose medications if other options are not available. Mix your drugs with these household products, seal them in an airtight container and throw it into the garbage. Call [facility]: [phone] to be sure your drugs can be [...] aware that I should contact my doctor. 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 Signature: Date/Time: Relationship to Patient: Witness Name/Signature: Date/Time: [facility] 12-13-2024 Pastoral care Progress note Pastoral Care Note Entered On: 12/13/2024 9:35 EDT Performed On: 12/13/2024 9:33 EDT by Carlos Alberto Nesbitt Pastoral Care Type of Pastoral Visit : Follow up visit Spiritual Care Visit Initiated by : Bead Inspector Spiritual Care Reason for Visit : General [...] Carlos Alberto Nesbitt on 12/13/2024 09:33 AM [facility] 12-12-2024 Note Date of Service 12/12/2024 Chief Complaint COPD exacerbation Subjective 54-year-old male with past medical history significant for COPD/asthma, KOFFI, tachycardia induced cardiomyopathy with recovered EF, atrial fibrillation anticoagulated with Xarelto, type 2 diabetes mellitus. Patient presented to [facility] emergency department 12/10/2024 with dyspnea and chest [...] for SNF. He has been accepted at [facility] and pre-CERT has been started today. Patient [...] by NARESH MORENO on 12/12/2024 12:39 PM [facility] 12-12-2024 Pastoral care Progress note Pastoral Care Note Entered On: 12/12/2024 9:52 EDT Performed On: 12/12/2024 9:48 EDT by Carlos Alberto Nesbitt Pastoral Care Type of Pastoral Visit : Initial visit Spiritual Care Visit Initiated by : Bead Inspector Spiritual Care Reason for Visit : General [...] wants to get back to a former rastafari; pt welcomes someone to talk with and for prayer to be given Pastoral Care Visit Length : 20 minute(s) Carlos Alberto Nesbitt - 12/12/2024 9:48 EDT Digitally Signed by Carlos Alberto Nesbitt on 12/12/2024 09:48 AM [facility] 12-12-2024 Note Exam Date Time Procedure Performing Provider Status 12/12/24 5:56 AM XR Chest 1 View MICK LEGGETT MD; Aut h (Verified) [id number] ORIGINAL EXAMINATION: ONE XRAY VIEW OF THE [...] 12/12/2024 6:38:29 AM Ordering Provider: VENITA BROTHERS [facility]07-16-2025 Note. MICRO - Microbiology PROCEDURE: Streptococcus Pneumoniae [...] Locations *1: This test was performed at: [address], [facility] , [facility]07-16-2025 Note. MICRO - Microbiology PROCEDURE: Legionella Urine [...] Locations *1: This test was performed at: [address], [address] [place], [place] [address]07-16-2025 Evaluation + Plan noteExtracted from: Title:History and [...] evaluated by cardiology earlier this morning at [facility]. Repeat troponin in the am. 5. CHF [...] no longer feels safe in that environment. 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 DVT prophylaxis with [...] Metabolic Panel 08/27/24 * N-Terminal proBNP 08/27/24 [facility] 07-16-2025 Note Date of Service 12/11/2024 Chief Complaint Patient c/o intermittent left sided chest pain and SOB that started approx 30 minuntes supervisor customer complaint service. Pt did receive 324 aspirin supervisor customer complaint service and is having zero pain. History of Present Illness Patient is a 54-year-old male, who follows with Girma Correa CNP with a past medical history significant for COPD, asthma, CHF with cardiomyopathy, hypertension, atrial fibrillation, type 2 diabetes, and KOFFI, presented to [facility] emergency department with the chief complaint of [...] that was supposed to be removed at [facility] today. Patient denies any fever, chills, [...] home and would like to go to [facility]. He was just admitted to [facility] with atrial fibrillation RVR and bacteremia. [...] evaluated by cardiology earlier this morning at [facility]. Repeat troponin in the am. 5. CHF [...] no longer feels safe in that environment. 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 DVT prophylaxis with [...] 12/11/2024 12:58 PM Digitally Signed by ANGEL GRACES DO on 12/11/2024 03:06 PM [facility]07-16-2025 Note* Exam Date Time Procedure Performing Provider Status 12/11/24 2:[address] Angiography Chest w/ Contrast MICK WAGNER MD; Auth (Verified) [id number] ORIGINAL EXAMINATION: CTA OF THE CHEST 12/11/2024 [...] 12/11/2024 3:29:36 AM Ordering Provider: DELORES MURO [facility]07-16-2025 Note* Exam Date Time Procedure Performing Provider Status 12/11/24 12:31 AM XR Chest 1 View MICK LEGGETT MD; Au th (Verified) [id number] ORIGINAL EXAMINATION: ONE XRAY VIEW OF THE [...] 12/11/2024 1:19:48 AM Ordering Provider: DELORES MURO [facility]07-15-2025 Note* Exam Date Time Procedure Performing Provider Status 12/10/24 11:55 PM EKG [ED AOH] - CV DELORES MURO DO; Auth (Verified) ECG Final Report Sinus rhythm Left axis deviation Abnormal R-wave progression, late transition Compared to ECG at 11/24/2024 15:28:54 Electronic Signature: DELORES MURO DO 12/11/2024 02:07:48 [facility]07-09-2025 Hospital Discharge instructions Patient Education 12/04/2024 17:09:41 [...] splint gets wet, dry it with a hairspring studder on a cool setting. You may use gljv-ctg-mxxgwrq pain medicine to control pain, unless another [...] cast or splint develops cracks or breaks 1696-4849 [employer]. [address] [place] [address]. All rights reserved. This information is not intended as a substitute for professional medical care. Always follow yourhealthcare professional's instructions. Follow Up Care 12/04/2024 16:40:24 With:GIRMA CORREA Address: [place] [address]- [phone] When:2-4 days [facility] 07-09-2025 Note Discharge Instructions Thank you for allowing [facility] to assist you with your healthcare needs. The following is importantdischarge information regarding your hospital visit. Diagnosis from Today's Visit Visit for wound check What to Do Next Instructions from Your Care Team No qualifying data available. Post Acute Orders No qualifying data available. You Need to Schedule the Following Appointments Follow Up with GIRMA CORREA When:Within 2-4 days Where:[place] [address] [phone] Allergies Statins myalgia Medications Please ask your [...] splint gets wet, dry it with a hairspring studder on a cool setting. You may use pelf-ajg-wpsvprr pain medicine to control pain, unless another [...] cast or splint develops cracks or breaks 5240-2475 [employer]. [address] [place] [address]. All rights reserved. This information is not intended as a substitute for professional medical care. Always follow yourhealthcare professional's instructions. Additional Information VACCINATE! IT SAVES LIVES! Members of the community who have not yet received the COVID-19 vaccine and would like to receive it can visit one of [facility] vaccine clinics. There are many vaccine clinic locations within the [facility]. For locations and available times, please visit www.gettheshot.coronavirus.[place].gov/. It is important to note that some COVID mobile vaccine clinics are held outdoors and may be canceled in rainy or stormy conditions. To learn more about pediatric vaccinations (ages 5-11), we invite you to visit the [facility] webpage. https://www.[facility].org/pages/6098-Fcwqr-Orskafbrojm-Yaymdcuzfo-Ncyzd-Eby stions.htmlTo learn more about the COVID-19 vaccine, we invite you to visit the CDC website for a list of frequently asked questions. https://www.cdc.gov/coronavirus/2019-ncov/vaccines/faq.html [facility] Patient Portal Access Instructions: Stay connected with your healthcare team and access your personal medical information anytime with the [facility] Patient Portal. If you would like a full copy of your medical records please contact the [facility] Medical Records Department Monday through Monday between 8a.m. and 4:30p.m. Please follow the directions below to access the portal: 1.Access the email account you provided upon registration to the [facility].2.Look for an invitation email from [facility].3.Open the email and access the invitation link: Accept Invitation to [facility]4.Fill in the required orr to create your account. Sign into [email or web address] with your username and password that you [...] you will allow to register on the [facility] Patient Portal for access to your information. You can also access the [facility] Patient Portal on the [employer] Private frida. Simply click on Health Records under HealthData and then click on the [facility] logo. HOW TO SAFELY DISPOSE OF PRESCRIPTION [...] Call your local pharmacy or go to [email or web address] to find one close to you.3.Make use of household items: Use cat litter or old coffee grounds to dispose medications if other options arenot available. Mix your drugs with these household products, seal them in an airtight container andthrow it into the garbage. Call [facility]: [phone] to be sure your drugs can be [...] that I should contact my d octor. 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 Signature: Date/Time: Relationship to Patient: Witness Name/Signature: [facility] Note. MICRO - Microbiology PROCEDURE: Blood [...] Locations *1: This test was performed at: [address], [address] [place] [address] [id number] Note. MICRO - Microbiology PROCEDURE: Blood Culture [...] Locations *1: This test was performed at: [address], [address] [place] [address] [id number] Note. MICRO - Microbiology PROCEDURE: Blood Culture [...] Locations *1: This test was performed at: [facility], [address] [place] [address], [facility] , [facility]07-03-2025 Cardiology Progress note Date of Service 11/28/2024 [...] MIKEL MCDANIEL DO on 11/28/2024 11:46 AM [id number] Hospital Discharge instructions Patient Education 11/28/2024 15:26:42 Atrial Fibrillation, Ylap-eu-Ggli Atrial Fibrillation Atrial fibrillation is a type [...] Follow these instructions at home: Medicines Take olcx-cge-psaakmi and prescription medicines only as told by [...] 02/21/2009 Document Revised: 07/19/2018 Document Reviewed: 07/06/2018 PathoQuest Patient Education 2020 PathoQuest Inc. Follow Up Care 11/24/2024 07:01:00 With:NANI QUINTANA DO Orthopedic Address: [address] [place] [address] [phone] When:12/06/2024 09:00:00 Comments:Please Dr. Quintana's office to schedule appointment for follow up to discuss and schedule possible ex-fix removal. With:GIRMA CORREA Address: [address] [place] [address]- [phone] When:1-2 days Comments:Please call the office to schedule a hospital follow up appointment. [facility] 07-03-2025 Note Discharge Instructions Thank you for allowing [facility] to assist you with your healthcare needs. [...] CORREA When:Within 1-2 days Where:[address] [place] [address]- [phone] Additional Information: Please call the office to schedule a hospital follow up appointment. Follow Up with NANI QUINTANA DO Orthopedic When:12/06/2024 09:00 AM EDT Where:[address] [facility], [place] [address]- [phone] Additional Information: Please Dr. Quintana's office to [...] a day Duration: 14 Days Pickup at [facility]/pharmacy #[id number] Changed potassium chloride (Potassium Chloride (Eqv-K-Tab) 20 [...] by mouth Daily at bedtime Pharmacy Information [facility]/pharmacy #[id number]: [address], [place] [phone] Please take this list to your next [...] Follow these instructions at home: Medicines Take cyrl-emh-wqiozzq and prescription medicines only as told by [...] 02/21/2009 Document Revised: 07/19/2018 Document Reviewed: 07/06/2018 PathoQuest Patient Education 2020 PathoQuest Inc. Additional Information VACCINATE! IT SAVES LIVES! Members of the community who have not yet received the COVID-19 vaccine and would like to receive it can visit one of [facility] vaccine clinics. There are many vaccine clinic locations within the [facility]. For locations and available times, please visit https://[email or web address].[email or web address].gov/. It is important to note that some COVID mobile vaccine clinics are held outdoors and may be canceled in rainy or stormy conditions. To learn more about pediatric vaccinations (ages 5-11), we invite you to visit the [facility] webpage. https://www.[facility].org/pages/2922-Txvzs-Vlekujcbubx-Nuzafkwsgu-Lsbrw-Pra stions.htmlTo learn more about the COVID-19 vaccine, we invite you to visit the CDC website for a list of frequently asked questions.https://www.cdc.gov/coronavirus/2019-ncov/vaccines/faq.html [facility] Patient Portal Access Instructions: Stay connected with your healthcare team and access your personal medical information anytime with the [facility] Patient Portal. Please follow the directions below to create your [facility] account: 1.Access the email account you provided upon registration to the hospital/physician office.2.Look for an invitation email from [facility].3.Open the email and access the invitation link: AcceptInvitation to [facility].4.Fill in the required orr to create your account. To access your account, visit Liibook/NUOFFERt. Click the blue button labeled Access Patient Portal and then log in with the username and password that you created in the steps above. You will be able to view your test results, lab results, a summary of your visits, upcoming appointments and more. There is also a convenient messaging option where you can send secure messages to your [employer]. In addition, you will have the ability to download any documents or summaries to your computer and/or send the information securely to a physician. Remember that your healthcare information is confidential, so carefully consider who you will allowto register on the [facility] Patient Portal for access to your information. You can also access the [facility] Patient Portal on the [facility] Anywhere frida. Simply click on Patient Portal and then log into your account. If you would like to receive a full copy of your medical records, please contact the [facility] Medical Records Department by calling [phone], Monday through Monday between 8 a.m. and [...] Call your local pharmacy or go to http://tatum/8S5Go4n to find one close to you.3.Make use of household items: Use cat litter or old coffee grounds to dispose medications if other options arenot available. Mix your drugs with these household products, seal them in an airtight container andthrow it into the garbage. Call [facility]: [phone] to be sure your drugs can be [...] COPY. Signatures Patient Education Materials Atrial Fibrillation, Sddr-ep-Ugic Medication Leaflets My discharge plan and instructions have been reviewed and explained to me and I,CARLOS ALBERTO KELLEY JR understand my current condition and have read and understand these discharge instructions. I have received a written copy of the plan/instructions. If I have questions, I am aware that I should contact my d octor. 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 Signature: Date/Time: Relationship to Patient: Witness Name/Signature: Date/Time: [id number] Discharge summary Date of Service 11/28/2024 Discharge [...] external fixator in place. Patient presented to [facility] as a transfer from [facility] on 11/24/2024 with complaints of palpitations and [...] When:Within 1-2 days Where:[address] [facility] [place] [address]- [phone] Additional Information: Please call the office to [...] MAXIME COLLINS DO on 11/28/2024 01:25 PM [facility]Yxadpnco67-90-3786 Infectious disease Progress note Date of Service [...] with orthopedics presents to the hospital from [facility] on 11/24/2024 as a transfer for shortness [...] by ORI TOMLIN on 11/28/2024 12:50 PM [facility] [id number] Cardiology Progress note Date of Service 11/28/2024 [...] MIKEL MCDANIEL DO on 11/28/2024 11:46 AM [facility] [id number] Note* Exam Date Time Procedure Performing Provider Status 11/28/24 11:04 AM Transesophageal Echo cardiogram - CV FREDDY HARTLEY MD; Auth (Verified) [id number] Anesthesiology Consult note Patient: CARLOS ALBERTO KELLEY [...] list: Medical Asthma exacerbation / SNOMED CT 8099025822 / Confirmed COPD exacerbation / SNOMED CT 9756751014 / Confirmed Atopic dermatitis / SNOMED CT 88838688 / Confirmed Atypical chest pain / SNOMED CT 438709104 / Confirmed Morbid obesity with BMI of 40.0-44.9, adult / SNOMED CT 4485898881 / Confirmed Bronchitis / SNOMED CT 97398609 / Confirmed Cardiomyopathy / SNOMED CT 886351017 / Confirmed CHF with cardiomyopathy / SNOMED CT 50324465 / Confirmed Cough / SNOMED CT 42963619 / Confirmed Dental abscess / SNOMED CT 655212927 / Confirmed Depression / SNOMED CT 41730330 / Confirmed Dyspnea / SNOMED CT 720894291 / Confirmed Generalized anxiety disorder / SNOMED CT 02929959 / Confirmed Hypertension associated with type 2 diabetes mellitus / SNOMED CT 5748964793 / Confirmed Insomnia / SNOMED CT 779709463 / Confirmed LVH (left ventricular hypertrophy) / SNOMED CT 21128147 / Confirmed Moderate asthma / SNOMED CT 8472762476 / Confirmed Near syncope / SNOMED CT 3208928684 / Confirmed Chewing tobacco nicotine dependence / SNOMED CT 44258838 / Confirmed KOFFI (obstructive sleep apnea) / SNOMED CT 519694916 / Confirmed Right knee pain / SNOMED CT 5710942720 / Confirmed Paroxysmal atrial fibrillation / SNOMED CT 412047135 / Confirmed Screening for ischemic heart disease / SNOMED CT 944727297 / Confirmed Screening for colon cancer / SNOMED CT 354162426 / Confirmed Statin intolerance / SNOMED CT 6302962612 / Confirmed Tachyarrhythmia / SNOMED CT 65360569 / Confirmed Type 2 diabetes mellitus with hemoglobin A1c goal of less than 7.0% / SNOMED CT 890954052 / Confirmed Type 2 diabetes mellitus with hyperlipidemia / SNOMED CT 331367266 / Confirmed, Active Problems (32) Asthma exacerbation [...] Histories Past Medical History: Resolved Morbid obesity (689045134): Resolved. Diabetes mellitus (160970231): Resolved. Hypertension (0524325726): Resolved. BMI 45.0-49.9, adult (2739602785): Resolved. Anxiety (74944886): Resolved. Prediabetes (7673744422): Resolved. Obstructive sleep apnea (505550512): Resolved. Right flank pain (364114137): Resolved. Hyperlipidemia (26153002): Resolved. Mass of arm (319612490): Resolved. Family History: Cancer Father Heart disease Mother Grandparent Stroke Father Procedure history: Excision (588296117) on 03/25/2024 at 53 Years. Comments: 03/26/2024 7:50 Karol Curry LPN excision of multilobulated lipomatous mass right forearm Echocardiogram ([id number]) on 01/31/2024 at 53 Years. Cardioversion (728989472) on 12/23/2022 at 52 Years. Echocardiogram ([id number]) on 11/11/2022 at 52 Years. Comments: 03/20/2023 [...] right atrial pressure is 15 mm Hg [facility] ([id number]). Comments: 07/11/2022 8:26 CRISTINO Sinha, SHAHEEN warner [...] Oral36.6 DegC (NOV 28 06:51) Heart Rate Nzpwrt26 bpm (NOV 28 09:06) JOO451 mmHg (NOV 28 06:51) DBP63 mmHg (NOV [...] range of motion. Integumentary: Intact, Warm, Dry, Willows. Neurologic: Alert, Oriented. Review / Management Results [...] 26)9.1(NOV 25)9.2(NOV 24) . Assessment and Plan [employer] Society of Anesthesiologists (ASA) physical status classification: [...] ROJELIO NORIEGA DO on 11/28/2024 09:55 AM [facility] HospitalQplpdjwx08-83-9108 Note. MICRO - Microbiology PROCEDURE: Blood Culture [...] Locations *1: This test was performed at: [facility], [address] [place] [address], [facility] , [facility]07-02-2025 Note Date of Service 11/27/2024 Chief Complaint Palpitations Subjective 54-year-old male with a past medical history of COPD, tobacco abuse, A-fib, type 2 diabetes, recentankle fracture with external fixator in place. Presented to [facility] as a transfer from [facility] on 11/24/2024 with complaints of palpitations, found [...] by MELISSA ORTEGA on 11/27/2024 12:32 PM [facility] HospitalScxgoplv52-03-4697 Infectious disease Progress note Date of Service [...] with Spectrum presents to the hospital from [facility] on 11/24/2024 as a transfer for shortness [...] by ORI TOMLIN on 11/27/2024 02:19 PM [facility] HospitalBgybvvdh94-06-0927 Note. MICRO - Microbiology PROCEDURE: Blood Culture (bacterial) [O1 *1] SOURCE: Blood BODY SITE: COLLECTED DATE/TIME: 11/24/2024 05:08 EDT RECEIVED DATE/TIME: 11/24/2024 12:36 EDT START DATE/TIME: 11/24/2024 12:37 EDT FREE TEXT SOURCE: FINAL REPORTS Final Report [] Verified Date/Time/Personnel: 11/27/2024 09:17 EDT Staphylococcus aureus Isolated from aerobe and anaerobe bottles. Refer to previous culture for susceptibility. [id number] PRELIMINARY REPORTS Preliminary Report [] Verified Date/Time/Personnel: [...] Locations *1: This test was performed at: [address], [address]- , [facility]07-02-2025 Note. MICRO - Microbiology PROCEDURE: Blood Culture [...] Locations *1: This test was performed at: [address], [address]- , [facility]07-01-2025 Orthopaedic surgery Consult note Date of Service 11/25/2024 Reason for Consultation Pin site care History of Present Illness Chucky is a 54-year-old male who is admitted to [place] for A-fib with RVR. Patient had recent [...] obturator, femoral, LCN, DPN, SPN, sural, saphenous, M/HAND TWISTER - Calf soft and non-tender Left Lower Extremity - No tenderness palpation about left ankle. Skin intact. - Motor: Hip flexion/extension, quadriceps, hamstrings, gastruc/soleus, EHL/FHL intact. - Foot warm and perfused. BCR - Sensation grossly intact L2-S2: obturator, femoral, LCN, DPN, SPN, sural, saphenous, M/HAND TWISTER - Calf soft and non-tender Lab Results [...] SUZE MISHRA DO on 11/26/2024 07:11 AM [facility]ic[facility]rtjp84[facility]4554 Cardiology Progress note Date of Service 11/26/2024 [...] CHANDRAKANT SUAREZ DO on 11/26/2024 03:37 PM [facility] HospitalSipabbpq43-79-4087 Cardiology Progress note Date of Service 11/26/2024 [...] CHANDRAKANT SUAREZ DO on 11/26/2024 03:37 PM [facility] HospitalTklhvetr92-80-8250 Note Date of Service 11/26/2024 Chief Complaint Weakness Subjective 54-year-old male with a past medical history of COPD, tobacco abuse, A-fib, type 2 diabetes, recentankle fracture with external fixator in place. Presented to [facility] as a transfer from [facility] on 11/24/2024 with complaints of palpitations, found [...] by MELISSA ORTEGA on 11/26/2024 12:18 PM [facility] [id number] Infectious disease Progress note Date of Service [...] repair tomorrow at outside facility presents from [facility] on 11/24/2024 is transferred for shortness of [...] by ORI TOMLIN on 11/26/2024 02:31 PM [facility] HospitalHhmwxgur92-92-9974 Infectious disease Consult note Date of Service 11/25/2024 Reason for Consultation Staph aureus bacteremia Referring Physician Dr. Juarez History of Present Illness Patient is a 54-year-old male with past medical history of COPD, tobacco abuse, atrial fibrillation, type 2 diabetes, recent right ankle fracture with external fixator with scheduled operative repairtomorrow at outside facility presents from [facility] on 11/24/2024 as a transfer for shortness [...] repair tomorrow at outside facility presents from [facility] on 11/24/2024 as a transfer for shortness [...] by ORI TOMLIN on 11/25/2024 04:42 PM [facility] [id number] Note* Exam Date Time Procedure Performing Provider Status 11/25/24 6:03 PM XR Ankle Minimum 3 Views Left KAILEY COLEY MD; Auth (Verified) [id number] ORIGINAL EXAMINATION: THREE XRAY VIEWS OF THE [...] 11/25/2024 7:46:46 PM Ordering Provider: SUZE MISHRA [facility] HospitalYeygvbmk42-56-1045 Note* Exam Date Time Procedure Performing Provider Status 11/25/24 6:03 PM XR Tibia/Fibula 2 Views Right KAILEY COLEY MD; Auth (Verified) [id number] ORIGINAL EXAMINATION: TWO XRAY VIEWS OF THE [...] 11/25/2024 7:42:39 PM Ordering Provider: ORI TOMLIN [facility] HospitalYdlalrzg76-67-1502 Note* Exam Date Time Procedure Performing Provider Status 11/25/24 6:01 PM XR Ankle Minimum 3 Views Right TRACE ROUSE MD; Auth (Verified) [id number] ORIGINAL EXAMINATION: THREE XRAY VIEWS OF THE [...] 11/25/2024 7:39:01 PM Ordering Provider: SUZE MISHRA [facility] HospitalAflcngim39-97-0520 Orthopaedic surgery Consult note Date of Service 11/25/2024 Reason for Consultation Pin site care History of Present Illness Chucky is a 54-year-old male who is admitted to [place] for A-fib with RVR. Patient had recent [...] obturator, femoral, LCN, DPN, SPN, sural, saphenous, M/HAND TWISTER - Calf soft and non-tender Left Lower Extremity - No tenderness palpation about left ankle. Skin intact. - Motor: Hip flexion/extension, quadriceps, hamstrings, gastruc/soleus, EHL/FHL intact. - Foot warm and perfused. BCR - Sensation grossly intact L2-S2: obturator, femoral, LCN, DPN, SPN, sural, saphenous, M/HAND TWISTER - Calf soft and non-tender Lab Results [...] daily pin site care -Follow-up with Dr. Quinatna as outpatient -Discussed with attending Problem List/Past [...] SUZE MISHRA DO on 11/26/2024 07:11 AM [facility] HospitalQrgbaggk65-36-1547 Cardiology Progress note Date of Service 11/25/2024 [...] CHANDRAKANT SUAREZ DO on 11/25/2024 02:06 PM [facility] HospitalHcfkzihj46-99-7867 Note Date of Service 11/25/2024 Chief Complaint Right lower extremity pain Subjective 54-year-old male with a past medical history of COPD, tobacco abuse, A-fib, type 2 diabetes, recentankle fracture with external fixator in place. Presented to [facility] as a transfer from [facility] on 11/24/2024 with complaints of palpitations, found [...] by MELISSA ORTEGA on 11/25/2024 01:00 PM [facility] HospitalPdkqlsoh58-26-3242 Infectious disease Consult note Date of Service 11/25/2024 Reason for Consultation Staph aureus bacteremia Referring Physician Dr. Juarez History of Present Illness Patient is a 54-year-old male with past medical history of COPD, tobacco abuse, atrial fibrillation, type 2 diabetes, recent right ankle fracture with external fixator with scheduled operative repairtomorrow at outside facility presents from [facility] on 11/24/2024 as a transfer for shortness [...] repair tomorrow at outside facility presents from [facility] on 11/24/2024 as a transfer for shortness [...] by ORI TOMLIN on 11/25/2024 04:42 PM [facility] HospitalBmfbpboi91-62-7023 Cardiology Progress note Date of Service 11/25/2024 [...] CHANDRAKANT SUAREZ DO on 11/25/2024 02:06 PM [facility] HospitalMtvdltwa63-11-5377 Note* Exam Date Time Procedure Performing Provider Status 11/24/24 3:28 PM EKG (ED) - CV JORDON ARCOS MD; Auth (Verified) ECG Final Report SINUS RHYTHM LAD, CONSIDER LEFT ANTERIOR FASCICULAR BLOCK LOW VOLTAGE, PRECORDIAL LEADS CONSIDER ANTERIOR INFARCT Electronic Signature: JORDON ARCOS MD 11/25/2024 09:46:09 [facility] [id number] Cardiology Consult note Reason for Consultation Atrial [...] BENNETT SMITH MD on 11/24/2024 03:05 PM [facility] HospitalRleicdvp85-11-6104 Note* Exam Date Time Procedure Performing Provider Status 11/24/24 2:00 PM XR Chest 1 View MELISSA SANTOS MD; Aut h (Verified) [id number] ORIGINAL EXAMINATION: ONE XRAY VIEW OF THE [...] 11/24/2024 2:03:25 PM Ordering Provider: KARLENE BARCENAS [facility] HospitalDokrwhwu84-73-1244 Evaluation + Plan noteExtracted from: Title:History and [...] Metabolic Panel 08/27/24 * N-Terminal proBNP 08/27/24 [facility] 06-29-2025 History and physical note Date of Service November 24, 2024 Chief Complaint Palpitations, shortness of breath History of Present Illness This is a 54-year-old male with a past medical history consistent with COPD, tobacco abuse, atrial fibrillation, T2DM, recent ankle fracture with scheduled operative repair tomorrow at an outside facility right presents from [facility] as a transfer for palpitations in the [...] Patient was given Cardizem bolus in the [facility] ED, no further therapy given due to BP drop. On exam, patient states that his work of breathing is improved. Was placed on 2 L nasal cannula in setting of A-fib with RVR. Denies chest pain, palpitations at this time. Had report of visual disturbance, hallucinations. States this happened once while in [place]. Denies any other new or acute complaints. [...] KARLENE BARCENAS DO on 11/24/2024 01:02 PM [facility] HospitalFrlsbbaz55-64-8857 Note* Exam Date Time Procedure Performing Provider Status 11/24/24 5:[address] Angiography Chest w/ Contrast DARNELL MOLINA MD; Auth (Verified) [id number] ORIGINAL EXAMINATION: CTA OF THE CHEST 11/24/2024 [...] Date: 11/24/2024 6:01:11 AM [facility]ing [facility]* Exam Date Time Procedure Performing Provider Status 11/24/24 5:[address] Head or Brain w/o Contrast DARNELL MOLINA MD; Auth (Verified) [id number] ORIGINAL EXAMINATION: CT OF THE HEAD WITHOUT [...] 11/24/2024 5:55:14 AM Ordering Provider: CIRILO ESALURDES [facility]06-29-2025 Note* Exam Date Time Procedure Performing Provider Status 11/24/24 4:05 AM EKG [ED AOH] - CV CIRILO PATEL DO ; Auth (Verified) ECG Final Report Atrial fibrillation Markedly posterior QRS axis Anteroseptal infarct, old Minimal ST depression, lateral leads Baseline wander in lead(s) II,aVR Compared to ECG at 10/16/2024 22:24:26 ABNORMAL ECG Electronic Signature: CIRILO PATEL DO 11/24/2024 04:10:26 [facility]05-28-2025 Hospital Discharge instructions Patient Education 10/23/2024 17:07:48 [...] your health care provider approves. Standard walker 1.receiving supervisor your walker. Do not slide your [...] 05/15/2006 Document Revised: 04/10/2019 Document Reviewed: 04/10/2019 PathoQuest Patient Education 2020 [employer] Inc. 10/23/2024 17:07:24 How to Care for [...] with a waterproof covering. General instructions Take lwal-byq-pjqyije and prescription medicines only as told by [...] 01/25/2012 Document Revised: 07/12/2019 Document Reviewed: 07/15/2019 [employer]oQuest Patient Education 2020 [employer]. Follow Up Care 10/16/2024 16:12:44 With:[facility], skilled, Address:Unknown When:1-2 days With:GIRMA CORREA Address: [address] [place] [address] [phone] Business (1) When:1-2 days With:NANI QUINTANA DO Orthopedic Address: [address] [facility] [place] [phone] When:3-7 days Comments:Please call office SARA to confirm/verify follow up appointment. [facility] 05-28-2025 Note Discharge Instructions Thank you for allowing [place] to assist you with your healthcare needs. The following is importantdischarge information regarding your hospital visit. Your Care Team GIRMA CORREA Your Diagnosis Closed displaced bimalleolar fracture of right ankle Post-op pain Shortness of breath What to do next Scheduled Follow-Up Appointments Appointment Type When With Where Contact Information StatusCV Hospital Follow Up 11/08/2024 02:30 PM EDT [facility] CV Confirmed [facility] 11/12/2024 03:30 PM EDT GIRMA CORREA [facility] Confirmed Follow Up Appointments Follow Up with [facility], [facility], When:Within 1-2 days Follow Up with GIRMA CORREA When:Within 1-2 days Where:[address] [place] [address] [phone] Business (1) Follow Up with NANI QUINTANA DO Orthopedic When:Within 3-7 days Where:[address] [facility], [facility] [place] [address] [phone] Additional Information: Please call office SARA to [...] Post-op pain Duration: 7 Days Pickup at [facility]/pharmacy #[id number] Unchanged albuterol (albuterol 2.5 mg/ 3 mL [...] by mouth Daily at bedtime Pharmacy Information [facility]/pharmacy #[id number]: [address], [place] [phone] Please take this list to your next [...] may report side effects to FDA at [phone]. What other drugs will affect acetaminophen and [...] affect acetaminophen and oxycodone, including prescription and bqmq-ddm-hemofvk medicines, vitamins, and herbal products. Not all [...] to ensure that the information provided by StartX. ('Multum') is accurate, up-to-date, and complete, but no guarantee is made to that effect. Drug information contained herein may be time sensitive. [employer] information has been compiled for use by healthcare practitioners and consumers in the [place] and therefore [employer] does not warrant that uses outside of the [place] are appropriate, unless specifically indicated otherwise. ICU Metrixs drug information does not endorse drugs, diagnose patients or recommend therapy. ICU Metrixs drug information isan informational resource designed to [...] effective or appropriate for any given patient. [employer] does not assume any responsibility for any aspect of healthcare administered with the aid of information D[employer]uda provides. The information contained herein is not intended to cover all possible uses, directions, precautions, warnings, drug interactions, allergic reactions, or adverse effects. If you have questions about the drugs you are taking, check with your doctor, nurse or pharmacist. Copyright 7012-9340 StartX. Version: 22.01. Revision Date: 12/29/2022. Education Materials [...] health care provider approves. Standard walker 1. receiving supervisor your walker. Do not slide your [...] 05/15/2006 Document Revised: 04/10/2019 Document Reviewed: 04/10/2019 ElseXceedium Patient Education 2020 PathoQuest Inc. How to Care for an External [...] with a waterproof covering. General instructions Take ffpo-sfl-irhdktl and prescription medicines only as told by [...] Document Reviewed: 07/15/2019 Elsevier Patient Education 2020 PathoQuest Inc. Additional Information VACCINATE! IT SAVES LIVES! Members of the community who have not yet received the COVID-19 vaccine and would like to receive it can visit one of [facility] vaccine clinics. There are many vaccine clinic locations within the [facility]. For locations and available times, please visit [email or web address]/. It is important to note that some COVID mobile vaccine clinics are held outdoors and may be canceled in rainy or stormy conditions. To learn more about pediatric vaccinations (ages 5-11), we invite you to visit the [facility] webpage. https://www.[facility].org/pages/7091-Stifj-Zlfawopgjuj-Ynjcljzinp-Oysoy-Owq stions.htmlTo learn more about the COVID-19 vaccine, we invite you to visit the CDC website for a list of frequently asked questions.https://www.cdc.gov/coronavirus/2019-ncov/vaccines/faq.html [employer] Patient Portal Access Instructions: Stay connected with your healthcare team and access your personal medical information anytime with the [employer] Patient Portal. Please follow the directions below to create your Snoox account: 1.Access the email account you provided upon registration to the hospital/physician office.2.Look for an invitation email from [facility].3.Open the email and access the invitation link: AcceptInvitation to S[employer]ox.4.Fill in the required orr to create your account. To access your account, visit Liibook/LSAT FreedomOneChart. Click the blue button labeled Access Patient [...] who you will allowto register on the [facility] for access to your information. You can also access the [facility] Patient Portal on the [place] [facility] frida. Simply click on Patient Portal and then log into your account. If you would like to receive a full copy of your medical records, please contact the [facility] Medical Records Department by calling [phone], Monday through Monday between 8 a.m. and [...] Call your local pharmacy or go to http://OpenPeak.myThings/7F9Qd8z to find one close to you.3.Make use of household items: Use cat litter or old coffee grounds to dispose medications if other options arenot available. Mix your drugs with these household products, seal them in an airtight container andthrow it into the garbage. Call [facility]: [phone] to be sure your drugs can be [...] aware that I should contact my doctor. 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 Signature: Date/Time: Relationship to Patient: Witness Name/Signature: Date/Time: [facility] HospitalFtahcqku27-47-2648 Note Discharge Instructions Thank you for allowing [facility] to assist you with your healthcare needs. The following is importantdischarge information regarding your hospital visit. Your Care Team GIRMA CORREA COMMUNITY HEALTH NAVIGATOR-CASING FLUID TENDER Your Diagnosis Closed displaced bimalleolar fracture of right ankle Post-op pain Shortness of breath What to do next Scheduled Follow-Up Appointments Appointment Type When With [facility] Up 11/08/2024 02:30 PM EDT EDY WEBER [facility] Confirmed PC OV 11/12/2024 03:30 PM EDT GIRMA CORREA APRN-CASING FLUID TENDER [facility] Confirmed Follow Up Appointments Follow Up with [facility], skilled, When:Within 1-2 days Follow Up with GIRMA CORREA When:Within 1-2 days Where:[address] [place] [address] [phone] Business (1) Follow Up with NANI QUINTANA DO, Orthopedic When:Within 3-7 days Where:[address] [facility], [place] [address]- [phone] Additional Information: Please call office SARA to [...] Post-op pain Duration: 7 Days Pickup at [facility]/pharmacy #[id number] Unchanged albuterol (albuterol 2.5 mg/ 3 mL [...] by mouth Daily at bedtime Pharmacy Information [facility]/pharmacy #[id number]: [address], [place] [phone] Please take this list to your next [...] to receive it can visit one of [facility] vaccine clinics. There are many vaccine clinic locations within the [facility]. For locations and available times, please visit [email or web address]/. It is important to note that some COVID mobile vaccine clinics are held outdoors and may be canceled in rainy or stormy conditions. To learn more about pediatric vaccinations (ages 5-11), we invite you to visit the [facility] webpage. https://www.[facility].org/pages/5384-Qlzdw-Nkflvnajjmx-Dsmqtemjgy-Imnvz-Gff stions.htmlTo learn more about the COVID-19 vaccine, we invite you to visit the CDC website for a list of frequently asked questions.https://www.cdc.gov/coronavirus/2019-ncov/vaccines/faq.html [employer] Patient Portal Access Instructions: Stay connected with your healthcare team and access your personal medical information anytime with the [facility] Patient Portal. Please follow the directions below to create your Snoox account: 1.Access the email account you provided upon registration to the hospital/physician office.2.Look for an invitation email from [facility].3.Open the email and access the invitation link: AcceptInvitation to [facility].4.Fill in the required orr to create your account. To access your account, visit Liibook/NUOFFERt. Click the blue button labeled Access Patient [...] who you will allowto register on the [facility] Patient Portal for access to your information. You can also access the [facility] One[facility] Patient Portal on the [employer]where frida. Simply click on Patient Portal and then log into your account. If you would like to receive a full copy of your medical records, please contact the [facility] Medical Records Department by calling [phone], Monday through Monday between 8 a.m. and [...] Call your local pharmacy or go to http://OpenPeak.myThings/4K3Zn7i to find one close to you.3.Make use of household items: Use cat litter or old coffee grounds to dispose medications if other options arenot available. Mix your drugs with these household products, seal them in an airtight container andthrow it into the garbage. Call [facility]: [phone] to be sure your drugs can be [...] aware that I should contact my doctor. 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 Signature: Date/Time: Relationship to Patient: Witness Name/Signature: Date/Time: [facility] HospitalMuztktft53-75-3370 Orthopaedic surgery Progress note Date of Service [...] obturator, femoral, LCN, DPN, SPN, sural, saphenous, M/HAND TWISTER - Calf soft and non-tender Left Lower Extremity - No pain to left lower extremity. Walking boot in place when patient is ambulating - Motor: Hip flexion/extension, quadriceps, hamstrings, gastruc/soleus, EHL/FHL intact. - DP and PT pulse 2+. Foot warm and perfused. BCR - Sensation grossly intact L2-S2: obturator, femoral, LCN, DPN, SPN, sural, saphenous, M/HAND TWISTER - Calf soft and non-tender Weight Dosing [...] SUZE MISHRA DO on 10/23/2024 07:03 AM [facility] [id number] Orthopaedic surgery Progress note Date of Service [...] obturator, femoral, LCN, DPN, SPN, sural, saphenous, M/HAND TWISTER - Calf soft and non-tender Left Lower Extremity - No pain to left lower extremity. Walking boot in place when patient is ambulating - Motor: Hip flexion/extension, quadriceps, hamstrings, gastruc/soleus, EHL/FHL intact. - DP and PT pulse 2+. Foot warm and perfused. BCR - Sensation grossly intact L2-S2: obturator, femoral, LCN, DPN, SPN, sural, saphenous, M/HAND TWISTER - Calf soft and non-tender Weight Dosing [...] SUZE MISHRA DO on 10/23/2024 07:03 AM [facility] HospitalMglohdbh93-54-0214 Orthopaedic surgery Progress note Date of Service [...] obturator, femoral, LCN, DPN, SPN, sural, saphenous, M/HAND TWISTER - Calf soft and non-tender Left Lower Extremity - No pain to left lower extremity. Walking boot in place when patient is ambulating - Motor: Hip flexion/extension, quadriceps, hamstrings, gastruc/soleus, EHL/FHL intact. - DP and PT pulse 2+. Foot warm and perfused. BCR - Sensation grossly intact L2-S2: obturator, femoral, LCN, DPN, SPN, sural, saphenous, M/HAND TWISTER - Calf soft and non-tender Weight Dosing [...] SUZE MISHRA DO on 10/22/2024 05:51 AM [facility] [id number] Orthopaedic surgery Progress note Date of Service [...] obturator, femoral, LCN, DPN, SPN, sural, saphenous, M/HAND TWISTER - Calf soft and non-tender Left Lower Extremity - No pain to left lower extremity. Walking boot in place when patient is ambulating - Motor: Hip flexion/extension, quadriceps, hamstrings, gastruc/soleus, EHL/FHL intact. - DP and PT pulse 2+. Foot warm and perfused. BCR - Sensation grossly intact L2-S2: obturator, femoral, LCN, DPN, SPN, sural, saphenous, M/HAND TWISTER - Calf soft and non-tender Weight Dosing [...] SUZE MISHRA DO on 10/22/2024 05:51 AM [facility] HospitalRqlwftpe15-78-1798 Orthopaedic surgery Progress note Date of Service [...] SANDRA GARCIA DO on 10/21/2024 10:00 AM [facility] HospitalEfmsgyzs26-49-4415 Orthopaedic surgery Progress note Date of Service [...] SANDRA GARCIA DO on 10/21/2024 10:00 AM [facility] HospitalQupkyels75-16-2796 Pastoral care Progress note Pastoral Care Note [...] by Sanjay Lucas on 10/18/2024 04:50 PM [facility] HospitalSkrqvbmv20-69-7190 Note PIN care completed by bedside RN. Ortho approved protocol orders for care daily. Digitally Signed by SHAHEEN Lou on 10/18/2024 01:37 PM [facility] HospitalUuzktemr25-53-7703 Note Date of Service 10/18/2024 Chief Complaint [...] by GROVER HOFFMAN on 10/18/2024 01:11 PM [facility] HospitalSrbfchmr37-01-6010 Note* Exam Date Time Procedure Performing Provider Status 10/17/24 1:14 PM XR Fluoro 1-2 Hrs Tech Time KAILEY WAHL DO; Auth (Verified) [id number] ORIGINAL EXAMINATION: FLUORO MD - > 1 HR TECHNIQUE: Total fluoro time is 43.2 seconds. Total exposure is 2.0531 mGy. COMPARISON: CT ankle 10/17/2024, x-ray ankle 10/16/2024. HISTORY: ORDERING SYSTEM PROVIDED HISTORY: Reason for Exam: RIGHT ANKLE FX FINDINGS: Intraoperative fluoroscopic images from external surgical fixation of a distal fibular fracture. IMPRESSION: Intraoperative fluoroscopic images. Please refer to the elevator operator's report for further information. I have personally reviewed the images of this examination and agree with the resident's findings and interpretation. Interpreted by: Beau Wahl Preliminary Report By: Nadya Hudson Electronically signed By Beau Wahl Dictated Date: 10/17/2024 1:42:02 PM Prelim Date: 10/17/2024 2:15:08 PM Sign Date: 10/17/2024 2:15:08 PM Ordering Provider: NANI QUINTANA [facility] HospitalTydebywc63-45-5425 Note Date of Service 10/17/2024 Chief Complaint Medical management Subjective This 54-year-old white male with a past medical history of type 2 diabetes mellitus, hypertension, COPD, HFpEF, anxiety, atrial fibrillation on Xarelto and Tikosyn [facility] and subsequent ankle pain. [...] by GROVER HOFFMAN on 10/17/2024 12:52 PM [id number] Anesthesiology Consult note Patient: CARLOS ALBERTO KELLEY [...] CHANTAL WHEATLEY DO on 10/17/2024 11:13 AM [facility] HospitalOqbqvlxa03-25-7010 Note* Exam Date Time Procedure Performing Provider Status 10/17/24 10:[address] Ankle w/o Contrast Right KATHY REVELES MD; Auth (Verified) [id number] ORIGINAL EXAMINATION: CT OF THE RIGHT ANKLE [...] external fixator, multiplanar 10/17. transfer from [facility]. for right ankle fracture with [...] 10/17/2024 1:17:29 PM Ordering Provider: SUZE MISHRA [facility] HospitalTalnrrry98-06-3023 History and physical note Date of Service 10/16/2024 Chief Complaint Pt here from [facility] via squad after a mechanical fall causing a fracture to his right ankle. They splinted it in their ED and sent to [place] for surgical consult. History of Present Illness Patient is a 54-year-old male who presents to the [facility] emergency department as a transfer from [facility] for his right ankle fracture. Patient [...] Blood, q24h, for 5 day(s), Preferred Lab: [facility], Stop date 10/20/24 22:00:00 EDT Bedrest, [...] Blood, q24h, for 5 day(s), Preferred Lab: [facility], Stop date 10/20/24 22:00:00 EDT Complete Metabolic Panel(CMP), 10/16/24 21:21:00 EDT, URGENT (collect within 2 hrs), Blood, Once, Nurse Collect, Preferred Lab: [facility], Stop date 10/16/24 21:37:00 EDT Consult to Physician, 10/16/24 21:21:00 EDT, HOSPITALISTLARRY (For Consultation Assignment OnlyNO other Orders), Routine, medical clearance, follow medically Diet Order, 10/16/24 21:21:00 EDT, Start Meal: Next meal, Regular, Constant Order, : N/A, : N/A Electrocardiogram(EKG), 10/16/24 21:21:00 EDT, Complete by Nursing Incentive Spirometer, 10/16/24 21:21:00 EDT, [id number] Intake and Output, 10/16/24 21:21:00 EDT, q8h (2p, 10p, 6a) IV Catheter Insertion/Care(Peripheral IV Insertion/Care), 10/16/24 21:21:00 EDT, IV Care: Once, 18 gauge angiocath, if possible Pulse Oximeter - Intermittent, 10/16/24 21:21:00 EDT, AsDirected, PRN order, On admission and as indicated Type and Screen, 10/16/24 21:21:00 EDT, URGENT (collect within 2 hrs), Blood, Once, Nurse Collect, Preferred Lab: [facility], Stop date 10/16/24 21:21:00 EDT Vital [...] RIC ARELLANO DO on 10/16/2024 09:43 PM [facility] [id number] Anesthesiology Consult note Patient: CARLOS ALBERTO KELLEY [...] list: Medical Asthma exacerbation / SNOMED CT 5072337966 / Confirmed COPD exacerbation / SNOMED CT 0488672828 / Confirmed Atopic dermatitis / SNOMED CT 95768493 / Confirmed Atypical chest pain / SNOMED CT 266888309 / Confirmed Morbid obesity with BMI of 40.0-44.9, adult / SNOMED CT 7976435922 / Confirmed Bronchitis / SNOMED CT 68359935 / Confirmed Cardiomyopathy / SNOMED CT 257374350 / Confirmed CHF with cardiomyopathy / SNOMED CT 43353111 / Confirmed Cough / SNOMED CT 35003773 / Confirmed Dental abscess / SNOMED CT 319424777 / Confirmed Depression / SNOMED CT 91305078 / Confirmed Dyspnea / SNOMED CT 365006982 / Confirmed Generalized anxiety disorder / SNOMED CT 84726385 / Confirmed Hypertension associated with type 2 diabetes mellitus / SNOMED CT 1818024664 / Confirmed Insomnia / SNOMED CT 254991149 / Confirmed LVH (left ventricular hypertrophy) / SNOMED CT 21120999 / Confirmed Moderate asthma / SNOMED CT 7390035997 / Confirmed Near syncope / SNOMED CT 5879653828 / Confirmed Chewing tobacco nicotine dependence / SNOMED CT 40919609 / Confirmed KOFFI (obstructive sleep apnea) / SNOMED CT 931905379 / Confirmed Right knee pain / SNOMED CT 6594903056 / Confirmed Paroxysmal atrial fibrillation / SNOMED CT 318813359 / Confirmed Screening for ischemic heart disease / SNOMED CT 074485726 / Confirmed Screening for colon cancer / SNOMED CT 946702169 / Confirmed Statin intolerance / SNOMED CT 7102776430 / Confirmed Tachyarrhythmia / SNOMED CT 48463023 / Confirmed Type 2 diabetes mellitus with hemoglobin A1c goal of less than 7.0% / SNOMED CT 154404807 / Confirmed Type 2 diabetes mellitus with hyperlipidemia / SNOMED CT 301645831 / Confirmed, Active Problems (32) Asthma exacerbation [...] Histories Past Medical History: Resolved Morbid obesity (280813718): Resolved. Diabetes mellitus (411165200): Resolved. Hypertension (7731793585): Resolved. BMI 45.0-49.9, adult (1165068641): Resolved. Anxiety (87962011): Resolved. Prediabetes (7280582947): Resolved. Obstructive sleep apnea (522418174): Resolved. Right flank pain (809038864): Resolved. Hyperlipidemia (43280754): Resolved. Mass of arm (442785720): Resolved. Family History: Cancer Father Heart disease Mother Grandparent Stroke Father Procedure history: Excision ([id number]) on 03/25/2024 at 53 Years. Comments: 03/26/2024 7:50 NAY - Karol Melendez LPN excision of multilobulated lipomatous mass right forearm Echocardiogram ([id number]) on 01/31/2024 at 53 Years. Cardioversion (782983405) on 12/23/2022 at 52 Years. Echocardiogram ([id number]) on 11/11/2022 at 52 Years. Comments: 03/20/2023 [...] atrial pressure is 15 mm Hg Elbow ([id number]). Comments: 07/11/2022 8:26 SHAHEEN Nunez bursjordi - [...] Temp Oral36.7 DegC (OCTOBER 17:12) Heart Rate Owcpezank77 bpm (OCTOBER 17 00:00) GBE931 mmHg (OCTOBER 17:12) DBP82 mmHg (OCTOBER 17:12) BMI44.92 (OCTOBER 17:29) Measurements from flowsheet : Measurements 10/17/2024 1:29 EDT Height 177.8 cm Height in inches 70 inch(es) Admission Weight 142 kg Weight Lbs 312.4 lb Edison Body Weight 73.00 kg Type of Scale [...] PRN medication effectiveness Partial Nail Bed Color Willows Capillary Refill < 2 seconds Dorsalis Pedis Pulse, Left 2+ Normal Radial Pulse, Left 2+ Normal Radial Pulse, Right 2+ Normal Respirations Unlabored Respiratory Pattern Regular All Lobes Breath Sounds Clear Abdomen Description Non-distended, Rounded Abdomen Palpation Non-Tender Passing Flatus Yes Bowel Sounds All Quadrants Present Skin Description Willows, Dry Skin Temperature Warm Skin Integrity Pressure points intact Skin Turgor Elastic All Extremity Description Willows, Normal for ethnicity Temperature All Extremities Warm Mucous Membrane Color Willows Mucous Membrane Description Moist Ankle Right Incision, Wound Dressing/Activity: Assessed Incision, Wound Dressing: Elastic wrap bandage Wound Associated Pain: With activity, mobilization Buttock Inferior, Inner Skin Abnormality Type: Non-pressure ulcer Skin Abnormality Color: Willows, Red Incision, Wound Surrounding Tissue: Normal skin [...] EDT Designated Person #1 We May Share [facility] MARILYN OSPINA [phone] Designated Person #1 Relationship Sibling Designated Person #2 We May Share PHI Designated Person #2 We May Share [facility] Privacy Restrictions Requested None Height 177.8 cm Height in inches 70 inch(es) Admission Weight 142 kg Weight Lbs 312.4 lb Edison Body Weight 73.00 kg Type of Scale [...] evident Teaching Method Explanation Preferred Spoken Language Citizen Of [place] Preferred Written Language Citizen [place] Disease Process General Education Signs/Symptoms to report, [...] 10/16/2024 16:28 EDT Status N/A [facility] Screen 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 They splinted it in their ED and sent to [place] for surgical consult. Place Where Injury/Illness Occurred Other: [facility] Anticoagulants Taken In Past 6 Wks. [...] Non-distended, Symmetric Abdomen Palpation Non-Tender Skin Description Willows, Normal for ethnicity, Dry Skin Temperature Warm Mucous Membrane Color Willows Mucous Membrane Description Moist Neurological Symptoms Patient denies Level of Consciousness Alert Eye Opening Response Luis Felipe Spontaneously Best Motor Response Luis Felipe Obeys simple commands Best Verbal Response Luis Felipe Oriented [place] Coma Score 15 CLARA Yes Left Upper [...] No Weight Loss No Preferred Spoken Language Citizen Of [place] Preferred Written Language Citizen [place] Tracking Group ED Tracking Group Tracking Acuity 3 ED Diabetic Patient No Mode of Transfer Ground ambulance Ambulance Service [facility] Positioning Repositions self Standard Safety ID band [...] ED Triage Adults . Assessment and Plan [employer] Anesthesiologists (ASA) physical status classification: [...] diabetes mellitus with hyperlipidemia Historical Anxiety Diabetes [facility] Hyperlipidemia Hypertension Mass of arm Obstructive sleep apnea Prediabetes Right flank pain . Digitally Signed by MELISSA MARIN MD on 10/17/2024 06:21 AM Digitally Signed by DELORES BRAVO on 10/17/2024 07:17 AM [facility] [id number] Note Date of Service October 16, 2024 [...] KARLENE BARCENAS DO on 10/16/2024 10:38 PM [facility] HospitalItozypws88-04-5564 Note* Exam Date Time Procedure Performing Provider Status 10/16/24 10:24 PM Electrocardiogram - EKG - CV SA SULY PAULINO MD; Auth (Verified) ECG Final Report SINUS RHYTHM LEFT ANTERIOR FASCICULAR BLOCK LOW VOLTAGE, PRECORDIAL LEADS Electronic Signature: ALIZA PAULINO MD 10/17/2024 18:58:09 [facility] [id number] Note* Exam Date Time Procedure Performing Provider Status 10/16/24 10:07 PM XR Ankle Minimum 3 Views Left TRACE ROUSE MD; Auth (Verified) [id number] ORIGINAL EXAMINATION: THREE XRAY VIEWS OF THE [...] 10/16/2024 10:39:42 PM Ordering Provider: RIC ARELLANO [facility] HospitalAdksikar30-64-1132 History and physical note Date of Service 10/16/2024 Chief Complaint Pt here from [facility] via squad after a mechanical fall causing a fracture to his right ankle. They splinted it in their ED and sent to [place] for surgical consult. History of Present Illness Patient is a 54-year-old male who presents to the [facility] emergency department as a transfer from [facility] for his right ankle fracture. Patient [...] Blood, q24h, for 5 day(s), [facility], Stop date 10/20/24 22:00:00 EDT Bedrest, [...] Blood, q24h, for 5 day(s), [facility], Stop date 10/20/24 22:00:00 EDT Complete Metabolic Panel(CMP), 10/16/24 21:21:00 EDT, URGENT (collect within 2 hrs), Blood, Once, Nurse Collect, Preferred Lab: [facility], Stop date 10/16/24 21:37:00 EDT Consult to Physician, 10/16/24 21:21:00 EDT, HOSPITALISTLARRY (For Consultation Assignment OnlyNO other Orders), Routine, medical clearance, follow medically Diet Order, 10/16/24 21:21:00 EDT, Start Meal: Next meal, Regular, Constant Order, : N/A, : N/A Electrocardiogram(EKG), 10/16/24 21:21:00 EDT, Complete by Nursing Incentive Spirometer, 10/16/24 21:21:00 EDT, [id number] Intake and Output, 10/16/24 21:21:00 EDT, q8h (2p, 10p, 6a) IV Catheter Insertion/Care(Peripheral IV Insertion/Care), 10/16/24 21:21:00 EDT, IV Care: Once, 18 gauge angiocath, if possible Pulse Oximeter - Intermittent, 10/16/24 21:21:00 EDT, AsDirected, PRN order, On admission and as indicated Type and Screen, 10/16/24 21:21:00 EDT, URGENT (collect within 2 hrs), Blood, Once, Nurse Collect, Preferred Lab: [place] facility, Stop date 10/16/24 21:21:00 EDT Vital [...] RIC ARELLANO DO on 10/16/2024 09:43 PM [facility] HospitalRgcnqkqa84-04-2315 Note* Exam Date Time Procedure Performing Provider Status 10/16/24 8:42 PM XR Ankle Minimum 3 Views Right TRACE ROUSE MD; Auth (Verified) [id number] ORIGINAL EXAMINATION: THREE XRAY VIEWS OF THE [...] 10/16/2024 9:20:54 PM Ordering Provider: RIC ARELLANO [facility] HospitalPakuxvit00-18-0435 Note* Exam Date Time Procedure Performing Provider Status 10/16/24 7:09 PM XR Ankle Minimum 3 Views Right TRACE ROUSE MD; Auth (Verified) [id number] ORIGINAL EXAMINATION: THREE XRAY VIEWS OF THE [...] 10/16/2024 7:53:07 PM Ordering Provider: EM GARCIA [facility] HospitalVhfzkacu91-38-7213 Note* Exam Date Time Procedure Performing Provider Status 10/16/24 5:43 PM XR Ankle Minimum 3 Views Right TRACE ROUSE MD; Auth (Verified) [id number] ORIGINAL EXAMINATION: THREE XRAY VIEWS OF THE [...] Date: 10/16/2024 6:28:12 PM Ordering Provider: EM [facility]05-21-[facility]25 Evaluation + Plan noteExtracted from: Title:Ortho History [...] q24h, for 5 day(s), Preferred Lab: [facility], Stop date 10/20/24 22:00:00 EDT [...] q24h, for 5 day(s), Preferred Lab: [facility], Stop date 10/20/24 22:00:00 EDT Complete Metabolic Panel(CMP), 10/16/24 21:21:00 EDT, URGENT (collect within 2 hrs), Blood, Once, Nurse Collect, Pref[facility] Lab: [facility], Stop date 10/16/24 21:37:00 EDT Consult to Physician, 10/16/24 21:21:00 EDT, HOSPITALISTLARRY (For Consultation Assignment Only NO other Orders), Routine, medical clearance, follow medically Diet Order, 10/16/24 21:21:00 EDT, Start Meal: Next meal, Regular, Constant Order, : N/A, : N/A Electrocardiogram(EKG), 10/16/24 21:21:00 EDT, Complete by Nursing Incentive Spirometer, 10/16/24:21:00 EDT, [id number] Intake and Output, 10/16/24 21:21:00 EDT, q8h (2p, 10p, 6a) IV Catheter Insertion/Care(Peripheral IV Insertion/Care), 10/16/24 21:21:00 EDT, IV Care: Once, 18 gauge angiocath, if possible Pulse Oximeter - Intermittent, 10/16/24 21:21:00 EDT, AsDirected, PRN order, On admission and as indicated Type and Screen, 10/16/24 21:21:00 EDT, URGENT (collect within 2 hrs), Blood, Once, Nurse Collect, Preferred Lab: [place] facility, Stop date 10/16/24 21:21:00 EDT Vital [...] Appointment Date:11/08/2024 02:30:00 PM Scheduled Provider:EDY WEBER Location:[facility] Appointment Type:CV OV Hospital Follow Up Appointment Date:11/12/2024 03:30:00 PM Scheduled Provider:GIRMA CORREA Location:[facility] Appointment Type:PC OV Future Scheduled Tests Laboratory* Basic Metabolic Panel 02/07/24 * Basic Metabolic Panel 12/10/24 * Basic Metabolic Panel 02/19/24 * Magnesium Level 02/07/24 * Complete Blood Count 08/27/24 * Complete Metabolic Panel 08/27/24 * N-Terminal proBNP 08/27/24 [facility] 05-09-[facility]25 Hospital Discharge instructions Patient Education [...] Slowly return to your usual activities. Take akxq-klt-rslhgms and prescription medicines only as told by [...] 02/07/2002 Document Revised: 10/15/2018 Document Reviewed: 10/15/2018 [employer] Patient Education 2020 [employer]. 10/04/2024 21:03:30 Pursed Lip Breathing Pursed Lip [...] exercise. Follow these instructions at home: Take ssts-jym-tlyhrhm and prescription medicines only as told by [...] 02/21/2009 Document Revised: 04/27/2018 Document Reviewed: 04/06/2017 [employer] Patient Education 2020 [employer] 10/04/2024 21:03:27 Cough, Adult Cough, Adult [...] Follow these instructions at home: Medicines Take vzpx-skf-ptobius and prescription medicines only as told by [...] of a condition that needs treatment. Take ytkt-mtq-csswecw and prescription medicines only as told by [...] 11/11/2011 Document Revised: 06/03/2019 Document Reviewed: 06/03/2019 [employer] Patient Education 2020 [employer]. Follow Up Care 10/02/2024 02:08:49 With:readmission score is 13 Address:Unknown When: Unknown With:GIRMA CORREA Address: [address] [place] [address] [phone] Business (1) When:1-2 days [facility] 05-09-2025 Note Discharge Instructions Thank you for allowing [place] to assist you with your healthcare needs. The following is importantdischarge information regarding your hospital visit. Your Care Team GIRMA CORREA Your Diagnosis Shortness of breath What to do next Scheduled Follow-Up Appointments Appointment Type When With Where Contact Information StatusPC OV 10/23/2024 04:00 PM EDT GIRMA CORREA [facility] Confirmed CV OV Hospital Follow Up 11/08/2024 02:30 PM EDT EDY WEBER [facility] Confirmed Follow Up Appointments Follow Up with readmission score is 13 Follow Up with GIRMA CORREA When:Within 1-2 days Where:[address] [place], [place] [id number]- [phone] Business (1) The Following Activity and Diet [...] within 14 days after discharge, please call [facility] at [phone]. Post Acute Orders No qualifying data available. [...] a day Take with food Pickup at [facility]/pharmacy #[id number] Unchanged acetaminophen (Tylenol) by mouth As needed [...] Two (2) times a day Pickup at [facility]/pharmacy #[id number] Unchanged dulaglutide (Trulicity Pen 1.5 mg/ 0.5 [...] by mouth Daily at bedtime Pickup at [facility]/pharmacy #[id number] Unchanged spironolactone (spironolactone 25 mg oral tablet) 1 tab(s) by mouth Once a day Duration: 90 Days Unchanged tiZANidine (tiZANidine 2 mg oral tablet) 1 tab(s) by mouth Every 8 hours as needed for as needed for muscle spasm Duration: 7 Days Unchanged traZODone (traZODone 100 mg oral tablet) 1 tab(s) by mouth Daily at bedtime Pharmacy Information [facility]/pharmacy #[id number]: [address], [place] [id number] [phone] Please take this list to your next [...] may report side effects to FDA at 9-950-JFQ-5612. What other drugs will affect hydroxyzine? Taking [...] may interact with hydroxyzine, including prescription and gizh-ldw-hjpwbjp medicines, vitamins, and herbal products. Not all [...] to ensure that the information provided by [employer]. ('Mult[employer]') is accurate, up-to-date, and complete, but no guarantee is made to that effect. Drug information contained herein may be time sensitive. [employer] information has been compiled for use by healthcare practitioners and consumers in the [place] and therefore [employer] does not warrant that uses outside of the [place] are appropriate, unless specifically indicated otherwise. [employer] drug information does not endorse drugs, diagnose patients or recommend therapy. [employer]s drug information isan informational resource designed to [...] effective or appropriate for any given patient. [employer] does not assume any responsibility for any aspect of healthcare administered with the aid of information [employer] provides. The information contained herein is not intended to cover all possible uses, directions, precautions, warnings, drug interactions, allergic reactions, or adverse effects. If you have questions about the drugs you are taking, check with your doctor, nurse or pharmacist. Copyright 4756-5287 [employer]. Version: 8.01. Revision Date: 08/10/2016. furosemide (oral/injection) [...] blood pressure, such as diet pills or easww-cvq-smuo medicine. What are the possible side effects [...] may report side effects to FDA at 7-288-LVW-2401. What other drugs will affect furosemide? Sometimes [...] drugs may affect furosemide, including prescription and afcg-zdq-hmfrkfy medicines, vitamins, and herbal products. Not all [...] to ensure that the information provided by [employer]. ('[employer]') is accurate, up-to-date, and complete, but no guarantee is made to that effect. Drug information contained herein may be time sensitive. [employer] information has been compiled for use by healthcare practitioners and consumers in the [place] and therefore [employer] does not warrant that uses outside of the [place] are appropriate, unless specifically indicated otherwise. [employer] drug information does not endorse drugs, diagnose patients or recommend therapy. [employer]s drug information isan informational resource designed to [...] effective or appropriate for any given patient. [employer] does not assume any responsibility for any aspect of healthcare administered with the aid of information [employer] provides. The information contained herein is not intended to cover all possible uses, directions, precautions, warnings, drug interactions, allergic reactions, or adverse effects. If you have questions about the drugs you are taking, check with your doctor, nurse or pharmacist. Copyright 6183-8826 [employer]. Version: .. Revision Date: 11/07/2023. cetirizine (oral/injection) [...] may report side effects to FDA at 9-817-ZCC-2288. What other drugs will affect cetirizine? Using cetirizine with other drugs that make you drowsy can worsen this effect. Ask your doctor before using opioid medication, a sleeping pill, a muscle relaxer, or medicine for anxiety or seizures. Other drugs may affect cetirizine, including prescription and gaep-tfc-bgfkiab medicines, vitamins,and herbal products. Tell your doctor [...] to ensure that the information provided by [employer]. ('Mult[employer]') is accurate, up-to-date, and complete, but no guarantee is made to that effect. Drug information contained herein may be time sensitive. [employer] information has been compiled for use by healthcare practitioners and consumers in the [place] and therefore [employer] does not warrant that uses outside of the [place] are appropriate, unless specifically indicated otherwise. [employer] drug information does not endorse drugs, diagnose patients or recommend therapy. ICU Metrixs drug information isan informational resource designed to [...] effective or appropriate for any given patient. [facility] does not assume any responsibility for any aspect of healthcare administered with the aid of information [facility] provides. The information contained herein is not intended to cover all possible uses, directions, precautions, warnings, drug interactions, allergic reactions, or adverse effects. If you have questions about the drugs you are taking, check with your doctor, nurse or pharmacist. Copyright 4977-9763 [facility] [employer]. Version: 13.. Revision Date: 11/16/2022. dofetilide (mathias [...] may report side effects to FDA at 1-161-DNS-9563. What other drugs will affect dofetilide? Other drugs may interact with dofetilide, including prescription and gexc-bxz-bpzxxcw medicines, vitamins, and herbal products. Tell each [...] to ensure that the information provided by [employer]. ('Multum') is accurate, up-to-date, and complete, but no guarantee is made to that effect. Drug information contained herein may be time sensitive. [employer] information has been compiled for use by healthcare practitioners and consumers in the [place] and therefore [employer] does not warrant that uses outside of the [place] are appropriate, unless specifically indicated otherwise. [employer]s drug information does not endorse drugs, diagnose patients or recommend therapy. [employer]s drug information isan informational resource designed to [...] effective or appropriate for any given patient. [employer] does not assume any responsibility for any aspect of healthcare administered with the aid of information [employer] provides. The information contained herein is not intended to cover all possible uses, directions, precautions, warnings, drug interactions, allergic reactions, or adverse effects. If you have questions about the drugs you are taking, check with your doctor, nurse or pharmacist. Copyright 6939-3663 [employer]. Version: 4.01. Revision Date: 09/09/2015. allopurinol (oral/injection) [...] and call your (more content not included)... [facility] HospitalEkspsler74-18-2058 Pastoral care Progress note Pastoral Care Note Entered On: 10/04/2024 16:17 EDT Performed On: 10/04/2024 14:56 EDT [facility] : [...] by Sanjay Lucas on 10/04/2024 04:16 PM [facility] HospitalPsspxyhf89-21-2516 Discharge summary Date of Service 10/04/2024 Discharge [...] When:Within 1-2 days Where:[address] [facility] [place] [address] [phone] Business (1) Follow Up Appointments No qualifying data available. Follow Up Labs/Studies Discharge Labs No Follow-up Labs Discharge Studies No Follow-up Studies Discharge Diet No qualifying data available. Discharge Activity No qualifying data available. Readmission Risk/Palliative Score LACE Score: 13 (10/02/24 10:21:00) Palliative Total Score: 1 (10/02/24 10:21:00) Digitally Signed by DUSTIN RICHARD MD on 10/04/2024 12:27 PM [facility] HospitalKjxiujmo11-64-0524 Discharge summary Date of Service 10/04/2024 Discharge [...] CORREA When:Within 1-2 days Where:[address] [facility] [place] [address]- [phone] Business (1) Follow Up Appointments No qualifying data available. Follow Up Labs/Studies Discharge Labs No Follow-up Labs Discharge Studies No Follow-up Studies Discharge Diet No qualifying data available. Discharge Activity No qualifying data available. Readmission Risk/Palliative Score LACE Score: 13 (10/02/24 10:21:00) Palliative Total Score: 1 (10/02/24 10:21:00) Digitally Signed by DUSTIN RICHARD MD on 10/04/2024 12:27 PM [id number] Cardiology Progress note Date of Service 10/03/2024 [...] DUSTIN RICHARD MD on 10/03/2024 01:50 PM [id number] Note* Exam Date Time Procedure Performing Provider Status 10/03/24 10:08 PM Electrocardiogram - EKG - CV JOHNIE VELÁZQUEZ MD; Auth (Verified) ECG Final Report SINUS RHYTHM LEFT AXIS DEVIATION LOW VOLTAGE, PRECORDIAL LEADS Electronic Signature: JOHNIE VELÁZQUEZ MD 10/04/2024 21:58:08 [facility] [id number] Note* Exam Date Time Procedure Performing Provider Status 10/03/24 4:01 PM Echocardiogram, Adult - CV ALIZA PAULINO MD; Auth (Verified) [id number] Cardiology Progress note Date of Service 10/03/2024 [...] DUSTIN RICHARD MD on 10/03/2024 01:50 PM [facility] [id number] Note* Exam Date Time Procedure Performing Provider Status 10/03/24 10:03 AM Electrocardiogram - EKG - CV JOHNIE VELÁZQUEZ MD; Auth (Verified) ECG Final Report SINUS RHYTHM LOW VOLTAGE, PRECORDIAL LEADS CONSIDER ANTERIOR INFARCT Electronic Signature: JOHNIE VELÁZQUEZ MD 10/04/2024 21:57:56 [facility] [id number] Note* Exam Date Time Procedure Performing Provider Status 10/02/24 10:04 PM Electrocardiogram - EKG - CV JOHNIE VELÁZQUEZ MD; Auth (Verified) ECG Final Report SINUS RHYTHM LEFT ANTERIOR FASCICULAR BLOCK PROLONGED QT INTERVAL Electronic Signature: JOHNIE VELÁZQUEZ MD 10/03/2024 19:52:07 [facility] [id number] History and physical note Date of Service [...] Diabetes mellitus Patient is currently in in [facility] A-fib. Rate is relatively well-controlled. Continue Cardizem [...] DUSTIN RICHARD MD on 10/02/2024 03:28 PM [facility] [id number] Note Date of Service October 02, 2024 [...] only), Blood, Once, Nurse Collect, Preferred Lab: [facility], Stop date 10/03/24 5:00:00 EDT Electrocardiogram(EKG), [...] by MARILUZ BUI on 10/02/2024 02:36 PM [facility] [id number] Note Date of Service October 02, 2024 [...] only), Blood, Once, Nurse Collect, Preferred Lab: [facility], Stop date 10/03/24 5:00:00 EDT Electrocardiogram(EKG), [...] by MARILUZ BUI on 10/02/2024 02:36 PM [facility] [id number] Evaluation + Plan noteExtracted from: Title:History and Physical Author:DUSTIN RICHARD MD Date:10/02/24 Paroxysmal atrial fibrillati on Tachyarrhythmia induced cardiomyopathy Heart failure with improved EF (EF 30 to 35% in October 2022 to 55% in 2023) Moderate to severe LVH Mild pulmonary hypertension Severely dilated LA (LA 5.1 cm, DANIEL??) Obesity and KOFFI (intolerant to CPAP) Hypertension Diabetes mellitus Patient is currently in in [facility] A-fib. Rate is relatively well-controlled. Continue Cardizem [...] Appointment Date:10/23/2024 04:00:00 PM Scheduled Provider:GIRMA CORREA Location:[facility] DARNE[facility] Appointment [...] Metabolic Panel 08/27/24 * N-Terminal proBNP 08/27/24 [facility] 05-07-2025 Note* Exam Date Time Procedure Performing Provider Status 10/02/24 1:53 PM Electrocardiogram - EKG - CV Brant VELÁZQUEZ MD; Auth (Verified) ECG Final Report SINUS RHYTHM PROBABLE LEFT ATRIAL ENLARGEMENT Left axis deviation Electronic Signature: JOHNIE VELÁZQUEZ MD 10/03/2024 19:51:33 [facility] [id number] History and physical note Date of Service [...] Diabetes mellitus Patient is currently in in [facility] A-fib. Rate is relatively well-controlled. Continue Cardizem [...] DUSTIN RICHARD MD on 10/02/2024 03:28 PM [facility] [id number] Respiratory therapy Hospital Progress note Respiratory Therapy [...] by CURTIS Patton on 10/02/2024 11:12 AM [facility] [id number] Note* Exam Date Time Procedure Performing Provider Status 10/02/24 8:23 AM Electrocardiogram - EKG - CV Brant VELÁZQUEZ MD; Auth (Verified) ECG Final Report ATRIAL FIBRILLATION LEFT ANTERIOR FASCICULAR BLOCK Electronic Signature: JOHNIE VELÁZQUEZ MD 10/03/2024 19:51:22 [facility] [id number] Note* Exam Date Time Procedure Performing Provider Status 10/02/24 6:24 AM Electrocardiogram - EKG - CV Brant VELÁZQUEZ MD; Auth (Verified) ECG Final Report ATRIAL FIBRILLATION WITH RAPID VENTRICULAR RESPONSE Right axis deviation Electronic Signature: JOHNIE VELÁZQUEZ MD 10/03/2024 19:51:11 [facility] [id number] Nurse Progress note bryon Nicole [phone] Digitally Signed by Halley Staples RN on 10/02/2024 04:26 AM [facility]05-07-2025 Nurse Progress note ready bed at main, transport called at 0230 ETA 90 min Digitally Signed by Halley Staples RN on 10/02/2024 04:22 AM [facility]05-07-2025 Nurse Progress note ready bed at main, transport called at 0230 ETA 90 min Digitally Signed by Halley Staples RN on 10/02/2024 04:22 AM [facility]05-07-2025 Note* Exam Date Time Procedure Performing Provider Status 10/02/24 1:43 AM XR Chest 1 View DARNELL MOLINA MD; [place] [facility] (Verified) [id number] ORIGINAL EXAMINATION: ONE XRAY VIEW OF THE [...] 10/02/2024 2:02:33 AM Ordering Provider: DELORES MURO [facility]05-07-2025 Note* Exam Date Time Procedure Performing Provider Status 10/02/24 12:38 AM EKG [ED AOH] - CV DELORES MURO DO; A [facility] (Verified) ECG Final Report Atrial fibrillation Inferior infarct, old Probable anteroseptal infarct, old Prolonged QT interval Baseline wander in lead(s) III,V1,V2,V5,V6 Compared to ECG at 08/13/2024 11:03:57 Electronic Signature: DELORES MURO DO 10/02/2024 02:28:42 [facility]10-30-2024 Note The microscopic examination is performed, except in the case of Gross Only. [facility] 10-29-2024 Note The microscopic examination is performed, except in the case of Gross Only. [facility] 10-29-2024 Note The microscopic examination is performed, except in the case of Gross Only. [facility] 10-29-2024 Note The microscopic examination is performed, except in the case of Gross Only. [facility] 10-29-2024 Note The microscopic examination is performed, except in the case of Gross Only. [facility] 10-29-2024 Note The microscopic examination is performed, except in the case of Gross Only. [facility] 10-29-2024 Note The microscopic examination is performed, except in the case of Gross Only. [facility] 09-11-2024 Evaluation + Plan note Future Scheduled Tests Laboratory* Basic Metabolic Panel 02/07/24 * Basic Metabolic Panel 12/10/24 * Basic Metabolic Panel 02/19/24 * Magnesium Level 02/07/24 * Complete Blood Count 08/27/24 * Complete Metabolic Panel 08/27/24 * N-Terminal proBNP 08/27/24 [facility] 09-09-2024 Note. MICRO - Microbiology [...] Locations *1: This test was performed at: [address], [facility] , [facility]09-09-2024 Note. MICRO - Microbiology PROCEDURE: Blood Culture [...] Locations *1: This test was performed at: [address], [address] [place], [place] [address]09-09-2024 Note. MICRO - Microbiology PROCEDURE: Blood Culture [...] Locations *1: This test was performed at: [address], [address] [place] [address] [id number] Note. MICRO - Microbiology PROCEDURE: Blood Culture [...] Locations *1: This test was performed at: [address], [address] [place] [address] [id number] Hospital Discharge instructions Patient Education 02/01/2024 17:18:13 Atrial Fibrillation, Ufoa-gz-Hlvs Atrial Fibrillation Atrial fibrillation is a type [...] Follow these instructions at home: Medicines Take hxhz-wru-xtilcnd and prescription medicines only as told by [...] 02/21/2009 Document Revised: 07/19/2018 Document Reviewed: 07/06/2018 [employer] Patient Education 2020 [employer]. Follow Up Care 01/31/2024 00:20:11 With:GIRMA CORREA Address: [place] [address]- When:1-2 days Comments:Please call the office to schedule a hospital follow-up appointment. [facility] 09-05-2024 Note Discharge Instructions Thank you for allowing [facility] to assist you with your healthcare needs. The following is importantdischarge information regarding your hospital visit. Your Care Team GIRMA CORREA Your Diagnosis Shortness of breath What to do next Instructions From Your Doctor Resume taking all your usual medications Keep yourself hydrated Follow-up with your primary care physician and hotel recreational facilities manager Scheduled Follow-Up Appointments Appointment Type When With Where Contact Information Status Wellness Annual w/Labs 02/13/2024 03:30 PM EDT GIRMA CORREA [facility] Confirmed Follow Up Appointments Follow Up with GIRMA CORREA When:Within 1-2 days Where:[address] [facility] [place] [address]- Additional Information: Please call the office to [...] Follow these instructions at home: Medicines Take cwzp-uvh-pyvfplk and prescription medicines only as told by [...] 02/21/2009 Document Revised: 07/19/2018 Document Reviewed: 07/06/2018 [employer] Patient Education 2020 [employer] Additional Information VACCINATE! IT SAVES LIVES! Members of the community who have not yet received the COVID-19 vaccine and would like to receive it can visit one of [facility] vaccine clinics. There are many vaccine clinic locations within the [facility]. For locations and available times, please visit [email or web address].gov/. It is important to note that some COVID mobile vaccine clinics are held outdoors and may be canceled in rainy or stormy conditions. To learn more about pediatric vaccinations (ages 5-11), we invite you to visit the [facility] webpage. [email or web address]/[email or web address] [email or web address] learn more about the COVID-19 vaccine, we invite you to visit the CDC website for a list of frequently asked questions.https://www.cdc.gov/coronavirus/2019-ncov/vaccines/faq.html [facility] Patient Portal Access Instructions: Stay connected with your healthcare team and access your personal medical information anytime with the [facility] Patient Portal. Please follow the directions below to create your [facility] account: 1.Access the email account you provided upon registration to the hospital/physician office.2.Look for an invitation email from [facility].3.Open the email and access the invitation link: AcceptInvitation to [facility].4.Fill in the required orr to create your account. To access your account, visit Liibook/NUOFFERt. Click the blue button labeled Access Patient Portal and then log in with the username and password that you created in the steps above. You will be able to view your test results, lab results, a summary of your visits, upcoming appointments and more. There is also a convenient messaging option where you can send secure messages to your p [employer]. In addition, you will have the ability to download any documents or summaries to your computer and/or send the information securely to a physician. Remember that your healthcare information is confidential, so carefully consider who you will allowto register on the [facility] Patient Portal for access to your information. You can also access the [facility] Patient Portal on the [facility] frida. Simply click on Patient Portal and then log into your account. If you would like to receive a full copy of your medical records, please contact the [facility] Medical Records Department by calling [phone], Monday through Monday between 8 a.m. and [...] Call your local pharmacy or go to [email or web address] to find one close to you.3.Make use of household items: Use cat litter or old coffee grounds to dispose medications if other options arenot available. Mix your drugs with these household products, seal them in an airtight container andthrow it into the garbage. Call [facility]: [phone] to be sure your drugs can be [...] COPY. Signatures Patient Education Materials Atrial Fibrillation, Ccpl-dp-Tnph Medication Leaflets My discharge plan and instructions have been reviewed and explained to me and IWARREN RAY J understand my current condition and have read and understand these discharge instructions. I have received awritten copy of the plan/instructions. If I have questions, I am aware that I should contact my doctor. 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 The [facility] as a transfer from [place] for A-fib with RVR. 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 Blood Glucose Test Strips: See Instructions, 1 bottle of 100 Test once daily, # 1 EA, 11 Refill(s), Pharmacy: [facility], 177.8, cm, 11/28/23 13:54:00 EDT, Height, 151.4, kg, 11/28/23 13:54:00 EDT, Dosing Weight FLUoxetine 20 mg oral capsule: Dose : 20 mg = 1 cap(s), Oral, qDay, # 30 cap(s), 3 Refill(s), Pharmacy: [facility], 177.8, cm, 11/28/23 13:54:00 EDT, Height, kg, 11/28/23 13:54:00 EDT,Dosing Weight Lancets: See Instructions, qs 1 month supply Test once daily, # 1 EA, 11 Refill(s), Pharmacy: [facility], 177.8, cm, 11/28/23 13:54:00 EDT, Height, 151.4, kg, 11/28/23 13:54:00 EDT, Dosing Weight Lasix 40 mg oral tablet: See Instructions, 1 tab in AM and 0.5 tab in PM, # 135 tab(s), 3 Refill(s), Pharmacy: [facility], 177.8, cm, 11/28/23 13:54:00 EDT, Height, kg, 11/28/23 13:54:00 EDT, Dosing Weight Symbicort 80 mcg-4.5 mcg/inh Inhaler: Dose = 2 puff(s), Inhalation, BID, # 10.2 gram(s), 3 Refill(s), Pharmacy: [facility], 177.8, cm, 11/28/23 13:54:00 EDT, Height, kg, 11/28/23 13:54:00 EDT, Dosing Weight Tikosyn 250 mcg oral capsule: Dose : 250 mcg = 1 cap(s), Oral, BID, # 180 cap(s), 3 Refill(s), Pharmacy: [facility]/pharmacy #[id number], 177.8, cm, 11/28/23 13:54:00 EDT, Height, kg, 11/28/23 13:54:00 EDT, Dosing Weight Toprol-XL 100 mg oral tablet, extended release: Dose : 100 mg = 1 tab(s), Oral, BID, do not crush or chew, # 180 tab(s), 3 Refill(s), Pharmacy: [facility], Shortness of breath, 177.8, cm, 11/28/23 13:54:00 EDT, Height, kg, 11/28/23 13:54:00 EDT, Dosing Weight Trulicity Pen 1.5 mg/0.5 mL subcutaneous solution: Dose : 1.5 mg =, Subcutaneous, qWeek, sent in absence of PCP, # 4 EA, 3 Refill(s), Pharmacy: [facility], 177.8, cm, 11/28/23 13:54:00EDT, Height, kg, 11/28/23 13:54:00 EDT, Dosing Weight Vistaril 25 mg oral capsule: Dose : 25 mg = 1 cap(s), Oral, QID, PRN as needed for anxiety, X 30 day(s), # 120 cap(s), 5 Refill(s), 06/09/24 16:10:00 EST, Pharmacy: [facility], 177.8, cm, 11/28/23 13:54:00 EDT, Height, kg, 11/28/23 13:54:00 EDT, Dosing Weight Xarelto 20 mg oral tablet: Dose : 20 mg = 1 tab(s), Oral, qHS, # 90 tab(s), 3 Refill(s), Pharmacy: [facility], 177.8, cm, 11/28/23 13:54:00 EDT, Height, 151.4, kg, 11/28/23 13:54:00 EDT, Dosing Weight allopurinol 100 mg oral tablet: Dose : 100 mg = 1 tab(s), Oral, qDay, # 90 tab(s), 3 Refill(s), Pharmacy: [facility], 177.8, cm, 11/28/23 13:54:00 EDT, Height, kg, 11/28/23 13:54:00 EDT, Dosing Weight cetirizine 10 mg oral tablet: Dose : 10 mg = 1 tab(s), Oral, Daily, # 90 tab(s), 3 Refill(s), Pharmacy: [facility], 177.8, cm, 11/28/23 13:54:00 EDT, Height, kg, 11/28/23 13:54:00 EDT,Dosing Weight nystatin 100,000 units/g topical cream: Apply 1 frida, Topical, BID, X 10 day(s), # 30 gram(s), 1 Refill(s), Pharmacy: [facility]/pharmacy #[id number], Cream, 177, cm, 01/12/24 9:42:00 EDT, Height, 148.6, kg, 01/12/24 9:42:00 EDT, Dosing Weight omeprazole 40 mg oral delayed release capsule: Dose : 40 mg = 1 cap(s), Oral, BID, before a meal., # 180 cap(s), 3 Refill(s), Pharmacy: [facility], 177.8, cm, 11/28/23 13:54:00 EDT, Height, kg, 11/28/23 13:54:00 EDT, Dosing Weight rosuvastatin 20 mg oral tablet: Dose : 20 mg = 1 tab(s), Oral, Daily, # 100 tab(s), 3 Refill(s), Pharmacy: [facility], 177.8, cm, 11/28/23 13:54:00 EDT, Height, kg, 11/28/23 13:54:00 EDT, Dosing Weight sacubitril-valsartan 49 mg-51 mg oral tablet: Dose = 1 tab(s), Oral, BID, # 180 tab(s), 3 Refill(s), Pharmacy: [facility], 177.8, cm, 11/28/23 13:54:00 EDT, Height, kg, 11/28/23 13:54:00 EDT, Dosing Weight spironolactone 25 mg oral tablet: Dose : 25 mg = 1 tab(s), Oral, qDay, # 90 tab(s), 3 Refill(s), Pharmacy: [facility], 177.8, cm, 11/28/23 13:54:00 EDT, Height, kg, 11/28/23 13:54:00 EDT, Dosing Weight tiZANidine 2 mg oral tablet: Dose : 2 mg = 1 tab(s), Oral, q8h, PRN as needed for muscle spasm, # 90 tab(s), 2 Refill(s), Pharmacy: [facility], 177.8, cm, 11/28/23 13:54:00 EDT, Height, kg, 11/28/23 13:54:00 EDT, Dosing Weight traZODone 100 mg oral tablet: Dose : 100 mg = 1 tab(s), Oral, qHS, # 90 tab(s), 3 Refill(s), Pharmacy: [facility], 177.8, cm, 11/28/23 13:54:00 EDT, Height, [...] list: Medical Asthma exacerbation / SNOMED CT 2320955354 / Confirmed Anxiety / SNOMED CT 63405704 / Confirmed Atopic dermatitis / SNOMED CT 51782552 / Confirmed BMI 45.0-49.9, adult / SNOMED CT 1089160688 / Confirmed Cardiomyopathy / SNOMED CT 485804396 / Confirmed Diabetes mellitus / SNOMED CT 787805620 / Confirmed Generalized anxiety disorder / SNOMED CT 33144343 / Confirmed Hyperlipidemia / SNOMED CT 32787521 / Confirmed Hypertension / SNOMED CT 2077649738 / Confirmed Insomnia / SNOMED CT 754717262 / Confirmed Moderate asthma / SNOMED CT 2145609948 / Confirmed Morbid obesity / SNOMED CT 176849994 / Confirmed Chewing tobacco nicotine dependence / SNOMED CT 36641250 / Confirmed Obstructive sleep apnea / SNOMED CT 401318688 / Confirmed Right knee pain / SNOMED CT 9094574738 / Confirmed Paroxysmal atrial fibrillation / SNOMED CT 039082971 / Confirmed Screening for ischemic heart disease / SNOMED CT 117924588 / Confirmed Screening for colon cancer / SNOMED CT 308342113 / Confirmed Prediabetes / SNOMED CT 0902933043 / Confirmed Right flank pain / SNOMED CT 091567425 / Confirmed Type 2 diabetes mellitus with hemoglobin A1c goal of less than 7.0% / SNOMED CT 919515374 / Confirmed Wheezing / SNOMED CT 02513559 / Confirmed, Active Problems (26) Anxiety Asthma [...] Mother Grandparent Stroke Father Procedure history: Cardioversion ([id number]) on 12/23/2022 at 52 Years. Echocardiogram ([id number]) on 11/11/2022 at 52 Years. Comments: 03/20/2023 [...] atrial pressure is 15 mm Hg Elbow ([id number]). Comments: 07/11/2022 8:26 CRISTINO Sinha, SHAHEEN warner [...] On and Limits Checked Nail Bed Color Willows Capillary Refill < 2 seconds Heart Sounds [...] Elimination Voiding, no difficulties All Extremity Description Willows Skin Temperature Warm Temperature All Extremities Warm Skin Description Willows, Dry Skin Integrity Intact Skin Turgor Non-Elastic Mucous Membrane Color Willows Mucous Membrane Description Moist Neurological Language Able to speak clearly Neurological Symptoms Patient denies Gait Unable to assess Extremity Movement Equal Swallowing Difficulty None Characteristics of Communication Appropriate Characteristics of Speech Clear Facial Symmetry Symmetric Level of Consciousness Alert Aspiration Risk None Eye Opening Response Luis Felipe Spontaneously Best Motor Response Luis Felipe Obeys simple commands Best Verbal Response [place] Oriented Luis Felipe Coma Score 15 CLARA [...] On and Limits Checked Nail Bed Color Willows Capillary Refill < 2 seconds Heart Sounds ICU S1S2 Heart Rhythm Irregular Cardiac Rhythm Sinus rhythm Monitoring Lead II, V5/MCL5 CT Interval 0.16 second(s) QRS Duration 0.08 second(s) [...] Elimination Voiding, no difficulties All Extremity Description Willows Skin Temperature Warm Temperature All Extremities Warm Skin Description Willows, Dry Skin Integrity Intact Skin Turgor Non-Elastic Mucous Membrane Color Willows Mucous Membrane Description Moist Neurological Language Able to speak clearly Neurological Symptoms Patient denies Gait Unable to assess Extremity Movement Equal Swallowing Difficulty None Characteristics of Communication Appropriate Characteristics of Speech Clear Facial Symmetry Symmetric Level of Consciousness Alert Aspiration Risk None Eye Opening Response [place] Spontaneously Best Motor Response [place] Obeys simple commands Best Verbal Response [place] Oriented Luis Felipe Coma Score 15 CLARA [...] date/time 01/31/2024 22:20 Provider Notified [facility] Notification Method Pager Information Communicated Medication request [...] On and Limits Checked Nail Bed Color Willows Capillary Refill < 2 seconds Heart Sounds [...] Movement Makes facial grimaces All Extremity Description Willows Skin Temperature Warm Temperature All Extremities Warm Skin Description Willows, Dry Skin Integrity Intact Skin Turgor Non-Elastic Mucous Membrane Color Willows Mucous Membrane Description Moist Sensory Perception [place] [...] On and Limits Checked Nail Bed Color Willows Capillary Refill < 2 seconds Heart Sounds [...] intact Skin Turgor Non-Elastic Mucous Membrane Color Willows Mucous Membrane Description Moist Neurological Language Able to speak clearly Neurological Symptoms Patient denies Extremity Movement Equal Swallowing Difficulty None Characteristics of Communication Appropriate Characteristics of Speech Clear Facial Symmetry Symmetric Level of Consciousness Alert Aspiration Risk None Eye Opening Response [place] Spontaneously Best Motor Response Luis Felipe Obeys simple commands Best Verbal Response [place] Oriented [place] Coma Score 15 CLARA Yes Left Pupil [...] of Bed Elevated 30 01/31/2024 15:38 EDT [facility] Current Living Situation I have a steady place to live [facility] Current Issues Living Environment None [facility] Worried Food Running Out P12M Never true [facility] Food Gone, No Money To Buy P12M Never true [facility] No Transport Med/Appt/Work P12M No [facility] Utilities Threaten Shut Off P12M No C Anyone Physically Hurt You Never (1) [facility] Anyone Insult Or Talk Down To You Never (1) [facility] Anyone Threaten You With Harm Never (1) [facility] Anyone Scream Or Curse At You Never (1) [facility] Safety Total Score 4 Living Situation Lives with family Discharge To, Anticipated Home independently Anticipated Discharge Date 02/02/2024 Transition Planning Note Transition Planning Initial Assessment 01/31/2024 15:36 EDT Primary Care Phone Message Transition of Care sent from [facility] 01/31/2024 14:59 EDT heparin 9,000 unit(s) unit(s) Dextrose 5% Premix Diluent 90 mL mL 01/31/2024 14:43 EDT [place] Body Weight 72.7 kg Home Diet Regular Weight Chg, Unintentional Nutrition Hx Weight stable per [place] history Appetite Good Nutrition Plan of Care Dietitian follow up/monitor, Encourage PO feedings, Participate in team conference Nutrition Follow-Up Needed Yes Days until Media Coordinator Follow Up Seven days Adult Nutrition Initial Assessment/Plan Adult Nutrition Assessment/Plan 01/31/2024 14:22 EDT Transition of Care Note Transition of Care sent from [facility] 01/31/2024 14:00 EDT Hand Right [...] On and Limits Checked Nail Bed Color Willows Capillary Refill < 2 seconds Heart Rhythm [...] Description Normal for ethnicity Mucous Membrane Color Willows Mucous Membrane Description Moist Hand Right 01/30/2024 [...] On and Limits Checked Nail Bed Color Willows Capillary Refill < 2 seconds Heart Rhythm [...] intact Skin Turgor Non-Elastic Mucous Membrane Color Willows Mucous Membrane Description Moist Continuous IV Infusions [...] Alert Aspiration Risk None Eye Opening Response [place] Spontaneously Best Motor Response [place] Obeys simple commands Best Verbal Response [place] Oriented Luis Felipe Coma Score 15 CLARA [...] On and Limits Checked Nail Bed Color Willows Capillary Refill < 2 seconds Heart Rhythm Irregular Pretibial edema Bilateral Edema Ratin+ trace/2mm Cardiac Rhythm Atrial fibrillation Monitoring Lead II, V6/MCL6 Alarms On and Functional Yes Respirations Unlabored Respi (more content not included)... [id number] NoteSINUS RHYTHM IVCD MISSING LEAD(S): V1,V2,V3,V4,V5 Electronic Signature: MOY WATTS MD 02/01/2024 11:10:55[facility] 09-04-2024 Cardiology Consult note Date of [...] anxiety and gout who initially presented to [facility] on 01/30/2024 for shortness of breath [...] not tolerate Cardizem drip. Patient transferred to [facility] for further management. Placed on Levophed. [...] (s): 1.87 H Assessment/Plan A-fib with RVR ([id number] 2) Near syncopal episode Tachycardia mediated cardiomyopathy [...] Will continue to follow. Patient seen with hotel recreational facilities manager Dr. Hartley who agreed with plan. [...] MICHELLE HENRY MD on 01/31/2024 12:53 PM [facility]Mutb[facility]wa03-20-2330 Note* Exam Date Time Procedure Performing Provider Status 01/31/24 4:20 PM Echocardiogram, Adult - CV Auth (Verified) [facility] 09-04-2024 Note. MICRO - Microbiology PROCEDURE: [...] Locations *1: This test was performed at: [facility], [address] [place] [address], [id number]- , [facility] ([place])01-31-2024 Note. MICRO - Microbiology PROCEDURE: Blood Culture [...] Locations *1: This test was performed at: [facility], [address] [place] [address], [address]- , [facility] ([place])01-31-2024 Evaluation + Plan noteExtracted from: Title:History and [...] prophylactically got a dose of ceftriaxone at [facility]. We will continue with prophylactic ceftriaxone dose [...] atrial fibrillation with rapid ventricular rate at [facility] admitted to the ICU overnight started on [...] Appointment Date:02/13/2024 03:30:00 PM Scheduled Provider:GIRMA CORREA Location:[facility] Appointment Type:PC Wellness Annual w/Labs Diagnostic Tests Pending * Culture Respiratory with Gram Stain 01/31/24 * APTT 02/01/24 Future Scheduled Tests Laboratory* Basic Metabolic Panel 04/01/23 * Prostate Specific Antigen 02/07/24 * A1C Hemoglobin 02/07/24 * Lipid Profile 02/07/24 * Complete Metabolic Panel 02/07/24 [facility] 09-04-2024 History and physical note Date [...] evaluated On arrival to the ER at [facility], patient was febrile 37.4, tachycardic 133, tachypneic 21, BP 90/76, was saturating 96% on room air. Labs done at [facility] 01/30/2024 revealed pO2 51 on the gases [...] prophylactically got a dose of ceftriaxone at [facility].We will continue with prophylactic ceftriaxone dose as [...] CINDY HERNANDEZ MD on 01/31/2024 08:06 AM [facility] [id number] Cardiology Consult note Date of Service 01/31/2024 [...] anxiety and gout who initially presented to [facility] on 01/30/2024 for shortness of breath [...] not tolerate Cardizem drip. Patient transferred to [facility] for further management. Placed on Levophed. [...] (s): 1.87 H Assessment/Plan A-fib with RVR ([id number]-UDSv 2) Near syncopal episode Tachycardia mediated cardiomyopathy [...] Will continue to follow. Patient seen with hotel recreational facilities manager Dr. Hartley who agreed with plan. [...] MICHELLE HENRY MD on 01/31/2024 12:53 PM [facility] [id number] NoteATRIAL FIBRILLATION LAD, CONSIDER LEFT ANTERIOR FASCICULAR BLOCK LOW VOLTAGE, PRECORDIAL LEADS BORDERLINE T ABNORMALITIES, INFERIOR LEADS BORDERLINE PROLONGED QT INTERVAL Electronic Signature: MOY WATTS MD 02/01/2024 11:10:[address] [place] [address] 09-04-2024 Note. MICRO - Microbiology PROCEDURE: Blood [...] Locations *1: This test was performed at: [address], [address] [place], [place] [address]01-31-2024 Note. MICRO - Microbiology PROCEDURE: Blood Culture [...] Locations *1: This test was performed at: [address], [address] [place], [place] [address]-31-2024 History and physical note Date of Service [...] evaluated On arrival to the ER at [facility], patient was febrile 37.4, tachycardic 133, tachypneic 21, BP 90/76, was saturating 96% on room air. Labs done at [facility] 01/30/2024 revealed pO2 51 on the gases [...] prophylactically got a dose of ceftriaxone at [facility].We will continue with prophylactic ceftriaxone dose as [...] CINDY HERNANDEZ MD on 01/31/2024 08:06 AM [facility] [id number] Note ORIGINAL EXAMINATION: CT OF THE HEAD [...] Date: 01/30/2024 10:16:46 PM [facility]ing [facility] Note ORIGINAL EXAMINATION: ONE XRAY VIEW OF [...] Date: 01/30/2024 9:28:12 PM Ordering Provider: SAMY [facility]09-03-2024 NoteAtrial flutter Left anterior fascicular block Borderline low voltage, extremity leads Abnormal R-wave progression, late transition Borderline ST depression, lateral leads Prolonged QT interval Baseline wander in lead(s) V3,V5 Electronic Signature: MD SAMY JONES MD 01/30/2024 21:01:46[facility] 03-13-2024 Hospital Discharge instructions Patient [...] get worse or if new symptoms appear. [phone] [employer]. [address] [place] [address]40. All rights reserved. This information is not intended as a substitute for professional medical care. Always follow yourhealthcare professional's instructions. Follow Up Care 08/09/2023 21:02:01 With:GIRMA CORREA Address: [address] [place] [address] [phone] Business (1) When:5-7 days Comments:Use warm compresses, Tylenol as discussed, return if any worsening or concerning symptoms. Follow-up closely with your doctor. [facility] 03-13-2024 Note Discharge Instructions Thank you for allowing [facility] to assist you with your healthcare needs. [...] with your doctor. Where: [address] [place] [address]- [phone] Business (1) Allergies NKA Medications Please ask [...] get worse or if new symptoms appear. 5071-6204 [employer]. [address] [place] [address], [place] [address]. All rights reserved. This information is not intended as a substitute for professional medical care. Always follow yourhealthcare professional's instructions. Additional Information VACCINATE! IT SAVES LIVES! Members of the community who have not yet received the COVID-19 vaccine and would like to receive it can visit one of [facility] vaccine clinics. There are many vaccine clinic locations within the [facility]. For locations and available times, please visit www.[email or web address]/. It is important to note that some COVID mobile vaccine clinics are held outdoors and may be canceled in rainy or stormy conditions. To learn more about pediatric vaccinations (ages 5-11), we invite you to visit the [facility] webpage. https://www.[email or web address].org/pages/4487-Jgqbf-Bezteqtajom-Krnxhfyozo-Yvtgu-Piy stions.htmlTo learn more about the COVID-19 vaccine, we invite you to visit the CDC website for a list of frequently asked questions. https://www.cdc.gov/coronavirus/2019-ncov/vaccines/faq.html [facility] Patient Portal Access Instructions: Stay connected with your healthcare team and access your personal medical information anytime with the [facility] Patient Portal. If you would like a full copy of your medical records please contact the [facility] Medical Records Department Monday through Monday between 8a.m. and 4:30p.m. Please follow the directions below to access the portal: 1.Access the email account you provided upon registration to the [facility].2.Look for an invitation email from [facility].3.Open the email and access the invitation link: Accept Invitation to [facility]4.Fill in the required orr to create your account. Sign into [email or web address] with your username and password that you [...] you will allow to register on the [employer] Patient Portal for access to your information. You can also access the [facility] Patient Portal on the [employer] Private frida. Simply click on Health Records under [employer] and then click on the [employer] logo. HOW TO SAFELY DISPOSE OF PRESCRIPTION [...] Call your local pharmacy or go to http://OpenPeak.myThings/1H0Iy0u to find one close to you.3.Make use of household items: Use cat litter or old coffee grounds to dispose medications if other options arenot available. Mix your drugs with these household products, seal them in an airtight container andthrow it into the garbage. Call [facility]: [phone] to be sure your drugs can be [...] aware that I should contact my doctor. 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 You may use hsgu-luw-tpkrqtj medicine to control fever or pain, unless [...] loosen secretions in the nose and lungs. Jwpp-uii-mdrlsbc cough, cold, and sore-throat medicines will not [...] shortness of breath, or pain with breathing 9120-7634 [employer]. [address] [place] [address]. All rights reserved. This information is not intended as a substitute for professional medical care. Always follow yourhealthcare professional's instructions. Follow Up Care 06/13/2023 00:01:18 With:GIRMA CORREA Address: [address] [place] [address]- [phone] Business (1) When:3-7 days Comments:Schedule appointment for [...] portal.Return to the ED if symptoms worsen. [facility] 01-16-2024 Note Discharge Instructions Thank you for allowing [facility] to assist you with your healthcare needs. [...] ED if symptoms worsen. Where: [place] [address]- [phone] Business (1) Allergies NKA Medications Please ask [...] exposed to secondhand smoke. You may use lwaw-rwl-hqpmzvl medicine to control fever or pain, unless [...] loosen secretions in the nose and lungs. Kpso-uli-zydjdpu cough, cold, and sore-throat medicines will not [...] shortness of breath, or pain with breathing 7874-1419 [employer]. [address] [place] [address]. All rights reserved. This information is not intended as a substitute for professional medical care. Always follow yourhealthcare professional's instructions. Additional Information VACCINATE! IT SAVES LIVES! Members of the community who have not yet received the COVID-19 vaccine and would like to receive it can visit one of [facility] vaccine clinics. There are many vaccine clinic locations within the [facility]. For locations and available times, please visit www.[email or web address]/. It is important to note that some COVID mobile vaccine clinics are held outdoors and may be canceled in rainy or stormy conditions. To learn more about pediatric vaccinations (ages 5-11), we invite you to visit the [facility] webpage. https://www.[facility].org/pages/9637-Wrwwg-Gvirplvimho-Jpxwsfbymz-Bmvsh-Goh stions.htmlTo learn more about the COVID-19 vaccine, we invite you to visit the CDC website for a list of frequently asked questions. https://www.cdc.gov/coronavirus/2019-ncov/vaccines/faq.html [facility] Patient Portal Access Instructions: Stay connected with your healthcare team and access your personal medical information anytime with the [facility] Patient Portal. If you would like a full copy of your medical records please contact the [facility] Medical Records Department Monday through Monday between 8a.m. and 4:30p.m. Please follow the directions below to access the portal: 1.Access the email account you provided upon registration to the [facility].2.Look for an invitation email from [facility].3.Open the email and access the invitation link: Accept Invitation to [facility]4.Fill in the required orr to create your account. Sign into [email or web address] with your username and password that you [...] you will allow to register on the [facility] Patient Portal for access to your information. You can also access the [facility] Patient Portal on the [employer] Private frida. Simply click on Health Records under [employer] and then click on the Larry logo. [...] Call your local pharmacy or go to http://bit.myThings/6G4Mz8m to find one close to you.3.Make use of household items: Use cat litter or old coffee grounds to dispose medications if other options arenot available. Mix your drugs with these household products, seal them in an airtight container andthrow it into the garbage. Call [facility]: [phone] to be sure your drugs can be [...] aware that I should contact my doctor. 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 Signature: Date/Time: Relationship to Patient: Witness Name/Signature: Date/Time: [facility]01-16-2024 Note ORIGINAL EXAMINATION: ONE XRAY [...] Sign Date: 06/13/2023 12:39:50 AM Ordering Provider: [facility]01-12-2024 Hospital Discharge instructions Patient Education 06/09/2023 20:03:33 Atrial Fibrillation, Pezo-cq-Yjxu Atrial Fibrillation Atrial fibrillation is a type [...] Follow these instructions at home: Medicines Take zooo-bnl-vzjetqk and prescription medicines only as told by [...] 02/21/2009 Document Revised: 07/19/2018 Document Reviewed: 07/06/2018 [employer] Patient Education 2020 [employer]. Follow Up Care 06/06/2023 16:24:50 With:GIRMA CORREA Address: [address] [place] [address]- [phone] When: Unknown Comments:PLEASE CALL THIS OFFICE TO SCHEDULE A HOSPITAL FOLLOW UP APPOINTMENT With:MOY WATTS MD Address: [address] [place] [address] [address] [place], [place] [id number]- [phone] When:07/17/2023 15:15:00 Comments:THIS APPOINTMENT WILL BE WITH ZHOU ESPINOSA CNP [facility] 01-12-2024 Note Discharge Instructions Thank you for allowing [facility] to assist you with your healthcare needs. The following is importantdischarge information regarding your hospital visit. Your Care Team GIRMA CORREA Your Diagnosis Shortness of breath What to do next Scheduled Follow-Up Appointments Appointment Type When With Where Contact InformationPC OV 06/20/2023 02:30 PM EST GIRMA CORREA [facility] CV OV 07/17/2023 03:15 PM EST ZHOU ESPINOSA [facility] Follow Up Appointments Follow Up with MOY WATTS MD When 07/17/2023 03:15 PM EST Why: THIS APPOINTMENT WILL BE WITH ZHOU ESPINOSA CNP Where: [address] [place] [address] [facility] [place] [address]- [phone] Follow Up with GIRMA CORREA When Why: PLEASE CALL THIS OFFICE TO SCHEDULE A HOSPITAL FOLLOW UP APPOINTMENT Where: [address] [facility] [place] [address]- [phone] The Following Activity and Diet Have Been [...] day Refills: 2 Pickup at [facility] #[id number] Changed FLUoxetine (FLUoxetine 10 mg oral capsule) 1 cap by mouth Once a day Pickup at [facility] #[id number] Unchanged allopurinol (allopurinol 100 mg oral tablet) [...] Daily at bedtime Pharmacy Information [facility] #[id number]: [address] [place], [place] [id number] [phone] Please take this list to your next [...] may report side effects to FDA at 9-131-MWC-5406. What other drugs will affect dofetilide? Other drugs may interact with dofetilide, including prescription and gvqy-htj-awrbjod medicines, vitamins, and herbal products. Tell each [...] to ensure that the information provided by [employer]. ('Multum') is accurate, up-to-date, and complete, but no guarantee is made to that effect. Drug information contained herein may be time sensitive. [employer] information has been compiled for use by healthcare practitioners and consumers in the [place] and therefore [employer] does not warrant that uses outside of the [place] are appropriate, unless specifically indicated otherwise. Ring[employer] drug information does not endorse drugs, diagnose patients or recommend therapy. ICU Metrixs drug information isan informational resource designed to [...] effective or appropriate for any given patient. [employer] does not assume any responsibility for any aspect of healthcare administered with the aid of information [employer] provides. The information contained herein is not intended to cover all possible uses, directions, precautions, warnings, drug interactions, allergic reactions, or adverse effects. If you have questions about the drugs you are taking, check with your doctor, nurse or pharmacist. Copyright 2542-5342 [employer]. Version: 4.01. Revision Date: 09/09/2015. Education Materials [...] Follow these instructions at home: Medicines Take ozrn-dvl-cvefxdl and prescription medicines only as told by [...] 02/21/2009 Document Revised: 07/19/2018 Document Reviewed: 07/06/2018 PathoQuest Patient Education 2020 [employer]. Additional Information VACCINATE! IT SAVES LIVES! Members of the community who have not yet received the COVID-19 vaccine and would like to receive it can visit one of [facility] vaccine clinics. There are many vaccine clinic locations within the [facility]. For locations and available times, please visit [email or web address]/. It is important to note that some COVID mobile vaccine clinics are held outdoors and may be canceled in rainy or stormy conditions. To learn more about pediatric vaccinations (ages 5-11), we invite you to visit the [facility] webpage. https://www.[facility].org/pages/4415-Odeel-Qwycmepfycw-Egouvuyzqz-Spoix-Bxe stions.htmlTo learn more about the COVID-19 vaccine, we invite you to visit the CDC website for a list of frequently asked questions.https://www.cdc.gov/coronavirus/2019-ncov/vaccines/faq.html [facility] Patient Portal Access Instructions: Stay connected with your healthcare team and access your personal medical information anytime with the [facility] Patient Portal. Please follow the directions below to create your [facility] account: 1.Access the email account you provided upon registration to the hospital/physician office.2.Look for an invitation email from [facility].3.Open the email and access the invitation link: AcceptInvitation to [facility].4.Fill in the required orr to create your account. To access your account, visit [email or web address]. Click the blue button labeled Access Patient [...] who you will allowto register on the [facility] Patient Portal for access to your information. You can also access the [facility] Patient Portal on the [facility] frida. Simply click on Patient Portal and then log into your account. If you would like to receive a full copy of your medical records, please contact the [facility] Medical Records Department by calling [phone], Monday through Monday between 8 a.m. and [...] Call your local pharmacy or go to http://bit.ly/8P2Ik2o to find one close to you.3.Make use of household items: Use cat litter or old coffee grounds to dispose medications if other options arenot available. Mix your drugs with these household products, seal them in an airtight container andthrow it into the garbage. Call [facility]: [phone] to be sure your drugs can be [...] COPY. Signatures Patient Education Materials Atrial Fibrillation, Pfij-pu-Fkrv Medication Leaflets Selina My discharge plan and instructions have been reviewed and explained to me and I,CARLOS ALBERTO KELLEY understand my current condition and have read and understand these discharge instructions. I have received awritten copy of the plan/instructions. If I have questions, I am aware that I should contact my doctor. 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 Signature: Date/Time: Relationship to Patient: Witness Name/Signature: Date/Time: [id number] Discharge summary Date of Service 06/09/23 Discharge [...] as long as QT is reviewed by software configuration engineer fellow, Constant order Ordered: Discharge,06/09/23 12:44:00 EST, [...] qDay, # 30 cap(s), 2 Refill(s), Pharmacy: [facility] #[id number], 176, cm, 06/07/23 13:36:00 EST, Height, kg, 06/07/23 13:36:00 EST, Dosing Weight Ordered: Tikosyn 250 mcg oral capsule,Dose : 250 mcg = 1 cap(s), Oral, BID, # 60 cap(s), 2 Refill(s), Pharmacy: [facility] #[id number], 176, cm, 06/07/23 13:36:00 EST, Height, kg, [...] When 07/07/2023 01:00 PM EST Where: [address] [facility] [address] [place], [place] [address]- [phone] Follow Up with GIRMA CORREA When Why: PLEASE CALL THIS OFFICE TO SCHEDULE A HOSPITAL FOLLOW UP APPOINTMENT Where: [address] [place], [place] [id number]- [phone] Follow Up Appointments No qualifying data available. Follow Up Labs/Studies Discharge Labs No Follow-up Labs Discharge Studies No Follow-up Studies Discharge Diet Discharge Diet - Ordered -- Type of Diet: Cardiac, Sodium limit: 2 gm, 06/09/23 12:44:00 EST Discharge Activity No qualifying data available. 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 (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.01 - ICD-10-CM) Shortness of breath (R06.02 - ICD-10-CM) Additional Orders: Ordered: Communication Order (continuous),06/09/23 12:44:00 EST, ok to DC home after 5th dose of tikosyn this evening as long as QT is reviewed by software configuration engineer fellow, Constant order Ordered: Discharge,06/09/23 12:44:00 EST, [...] qDay, # 30 cap(s), 2 Refill(s), Pharmacy: [facility] #[id number], 176, cm, 06/07/23 13:36:00 EST, Height, kg, 06/07/23 13:36:00 EST, Dosing Weight Ordered: Tikosyn 250 mcg oral capsule,Dose : 250 mcg = 1 cap(s), Oral, BID, # 60 cap(s), 2 Refill(s), Pharmacy: [facility] #[id number], 176, cm, 06/07/23 13:36:00 EST, Height, kg, [...] When 07/07/2023 01:00 PM EST Where: [address] [facility] [address] [place] [address]- [phone] Follow Up with [facility] When Why: PLEASE CALL THIS OFFICE TO SCHEDULE A HOSPITAL FOLLOW UP APPOINTMENT Where: [address] [place] [address]- [phone] Follow Up Appointments No qualifying data available. Follow Up Labs/Studies Discharge Labs No Follow-up Labs Discharge Studies No Follow-up Studies Discharge Diet Discharge Diet - Ordered -- Type of Diet: Cardiac, Sodium limit: 2 gm, 06/09/23 12:44:00 EST Discharge Activity No qualifying data available. Condition on Discharge stable Discharge Disposition home Digitally Signed by AMELIA RENAE MD on 06/09/2023 12:53 PM [id number] NoteSINUS RHYTHM LEFT AXIS DEVIATION LOW VOLTAGE, PRECORDIAL LEADS PROLONGED QT INTERVAL POOR R-WAVE PROGRESSION Electronic Signature: SADE STRAUSS MD 06/09/2023 09:53:23[facility] 01-11-2024 Cardiology Progress note Date of [...] AMELIA RENAE MD on 06/08/2023 03:03 PM [id number] Cardiology Progress note Date of Service 06/08/23 [...] AMELIA RENAE MD on 06/08/2023 03:03 PM [id number] NoteSINUS RHYTHM LAD, CONSIDER LEFT ANTERIOR FASCICULAR BLOCK LOW VOLTAGE, PRECORDIAL LEADS BORDERLINE PROLONGED QT INTERVAL Poor R wave progression Electronic Signature: SADE STRAUSS MD 06/09/2023 09:53:37[facility] 01-10-2024 NoteSINUS RHYTHM BORDERLINE IVCD WITH LAD LOW VOLTAGE, PRECORDIAL LEADS CONSIDER ANTERIOR INFARCT Electronic Signature: SADE STRAUSS MD 06/08/2023 09:48:12[facility] 01-10-2024 History and physical note Date [...] 107 ms, QT interval approximately [address] interval 184 ms. Renal function, electrolytes pending. [...] AMELIA RENAE MD on 06/07/2023 04:29 PM [facility] [id number] NoteSINUS RHYTHM LAD, CONSIDER LEFT ANTERIOR FASCICULAR BLOCK LOW VOLTAGE, PRECORDIAL LEADS Electronic Signature: SADE STRAUSS MD 06/08/2023 09:47:[address] [place] [address] 01-10-2024 History and physical note Date of [...] 107 ms, QT interval approximately [address] interval 184 ms. Renal function, electrolytes pending. [...] AMELIA RENAE MD on 06/07/2023 04:29 PM [facility] [id number] Evaluation + Plan noteExtracted from: Title:History and [...] Appointment Date:06/20/2023 02:30:00 PM Scheduled Provider:GIRMA CORREA Location:[facility] Appointment Type:PC OV Appointment Date:07/17/2023 03:15:00 PM Scheduled Provider:ZHOU ESPINOSA [facility] Appointment Type:CV OV Future Scheduled Tests Laboratory* Basic Metabolic Panel 04/01/23 * A1C Hemoglobin 06/09/23 * Lipid Profile 06/09/23 * Complete Metabolic Panel 06/09/23 [facility] 01-10-2024 NoteSINUS RHYTHM MARKEDLY POSTERIOR QRS AXIS LOW VOLTAGE, PRECORDIAL LEADS BORDERLINE PROLONGED QT INTERVAL Electronic Signature: SADE STRAUSS MD 06/08/2023 09:47:38[facility] 12-08-2023 Hospital Discharge instructions Patient Education [...] in vomit, stools (black or red color) 7005-5979 [employer]. [address] [place] [address]. All rights reserved. This information is not [...] fainting Blood in your stool or urine 0272-7270 [employer]. [address] [place], [place] [address]. All rights reserved. This information is not [...] will help ease pain. You may use ujqx-tmn-gkgkcpi pain medicine such as acetaminophen or ibuprofen [...] suddenly or lasts more than an hour 7211-9103 [employer]. [address] [place] [address], [place] [address]. All rights reserved. This information is not intended as a substitute for professional medical care. Always follow yourhealthcare professional's instructions. Follow Up Care 05/05/2023 17:11:14 With:GIRMA CORREA Address: [place] [address]- [phone] Business (1) When:5-7 days Comments:Follow-up as needed if symptoms or not improving.Limit activity as tolerated.Ice/cold compresses topainful areas.Use Tylenol, Advil or Aleve for pain as needed.Use Wallowa as prescribed for severe pain as needed.Take 10 deep breaths on the incentive stridor every hour while awake for the next week as advised.Return to the ED if symptoms worsen. [facility] 12-08-2023 Note Discharge Instructions Thank you for allowing [facility] to assist you with your healthcare needs. [...] or Aleve for pain as needed. Use Wallowa as prescribed for severe pain as needed. Take 10 deep breaths on the incentive stridor every hour while awake for the next week as advised. Return to the ED if symptoms worsen. Where: [place] [address] [phone] Business (1) Allergies NKA Medications Please ask your primary doctor or pharmacist before taking any other medication not listed, including over the counter drugs, herbal medications, vitamins and or supplements as they may interact withyour home medications. What How Much When Why Instructions Last Dose New acetaminophen-hydrocodone (Wallowa 325- 5 mg oral tablet) 1 tab(s) [...] cancer screening As directed by provider at [facility]. Unchanged rivaroxaban (Xarelto 20 mg oral tablet) [...] may report side effects to FDA at [phone]. What other drugs will affect acetaminophen and [...] affect acetaminophen and hydrocodone, including prescription and jsad-tci-nwnwsup medicines, vitamins, and herbal products. Not all [...] to ensure that the information provided by [employer]. ('Multum') is accurate, up-to-date, and complete, but no guarantee is made to that effect. Drug information contained herein may be time sensitive. [employer] information has been compiled for use by healthcare practitioners and consumers in the [place] and therefore [employer] does not warrant that uses outside of the [place] are appropriate, unless specifically indicated otherwise. ICU Metrixs drug information does not endorse drugs, diagnose patients or recommend therapy. ICU Metrixs drug information isan informational resource designed to [...] effective or appropriate for any given patient. [employer] does not assume any responsibility for any aspect of healthcare administered with the aid of information D[employer] provides. The information contained herein is not intended to cover all possible uses, directions, precautions, warnings, drug interactions, allergic reactions, or adverse effects. If you have questions about the drugs you are taking, check with your doctor, nurse or pharmacist. Copyright 9002-6118 [employer]. Version: 19.. Revision Date: 01/16/2023. Education Materials [...] in vomit, stools (black or red color) 1486-8890 [employer]. [address] [place] [address], [place] [address]. All rights reserved. This information is not [...] fainting Blood in your stool or urine 2466-0171 [employer]. [address] [place] [address], [place] [address]. All rights reserved. This information is not [...] will help ease pain. You may use brdw-bzd-nyvpuls pain medicine such as acetaminophen or ibuprofen [...] suddenly or lasts more than an hour 8839-2785 [employer]. [address] [place] [address], [place] [address]. All rights reserved. This information is not intended as a substitute for professional medical care. Always follow yourhealthcare professional's instructions. Additional Information VACCINATE! IT SAVES LIVES! Members of the community who have not yet received the COVID-19 vaccine and would like to receive it can visit one of [facility] vaccine clinics. There are many vaccine clinic locations within the [facility]. For locations and available times, please visit www.[email or web address].gov/. It is important to note that some COVID mobile vaccine clinics are held outdoors and may be canceled in rainy or stormy conditions. To learn more about pediatric vaccinations (ages 5-11), we invite you to visit the [facility] webpage. https://www.[facility].org/pages/0863-Mggwj-Eqjpjgpoluy-Qbamrrndkc-Lnftb-Szw stions.htmlTo learn more about the COVID-19 vaccine, we invite you to visit the CDC website for a list of frequently asked questions. https://www.cdc.gov/coronavirus/2019-ncov/vaccines/faq.html [facility] [employer] Patient Portal Access Instructions: Stay connected with your healthcare team and access your personal medical information anytime with the [facility] Patient Portal. If you would like a full copy of your medical records please contact the [facility] Medical Records Department Monday through Monday between 8a.m. and 4:30p.m. Please follow the directions below to access the portal: 1.Access the email account you provided upon registration to the hospital.2.Look for an invitation email from [facility].3.Open the email and access the invitation link: Accept Invitation to [facility]4.Fill in the required orr to create your account. Sign into [email or web address] with your username and password that you [...] you will allow to register on the [facility] Patient Portal for access to your information. You can also access the [facility] Patient Portal on the [employer] Private frida. Simply click on Health Records under [employer] and then click on the Larry logo. [...] Call your local pharmacy or go to [email or web address] to find one close to you.3.Make use of household items: Use cat litter or old coffee grounds to dispose medications if other options arenot available. Mix your drugs with these household products, seal them in an airtight container andthrow it into the garbage. Call [facility]: [phone] to be sure your drugs can be [...] aware that I should contact my doctor. 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 Signature: Date/Time: Relationship to Patient: Witness Name/Signature: Date/Time: [facility]12-08-2023 Note ORIGINAL EXAMINATION: 2 XRAY [...] Date: 05/05/2023 9:08:30 PM Ordering Provider: DEMI [facility]12-08-2023 Note ORIGINAL EXAMINATION: ONE XRAY VIEW [...] Date: 05/05/2023 9:17:04 PM Ordering Provider: DEMI RUI[facility]Ed [facility] Note * Exam Date Time Procedure Performing Provider Status 04/03/23 9:43 AM Echocardiogram, Adult (AOH) Auth (Verified) [facility] 07-28-2023 Hospital Discharge instructions Patient [...] Document Reviewed: 05/16/2014 ExitCare Patient Information 2015 [email or web address]. This information is not intended to replace [...] before eating solid foods. General instructions Take nafm-kva-bcchsri and prescription medicines only as told by [...] 09/04/2016 Document Revised: 08/13/2018 Document Reviewed: 09/04/2016 PathoQuest Patient Education 2020 PathoQuest Inc. Follow Up Care 12/07/2022 09:52:07 With:ZHOU ESPINOSA COMMUNITY HEALTH NAVIGATOR-CASING FLUID TENDER Address: [address] [place] [address] [address] [facility] [place] [phone] When: Unknown Comments:Follow-up as scheduled [facility] 07-28-2023 Note Discharge Instructions Thank you for allowing [facility] to assist you with your healthcare needs. The following is importantdischarge information regarding your hospital visit. Your Care Team GIRMA CORREA Your Diagnosis AF (atrial fibrillation) What to do next Scheduled Follow-Up Appointments Appointment Type When With Where Contact InformationPC OV 02/07/2023 02:30 PM EDT GIRMA CORREA [facility] Follow Up Appointments Follow Up with ZHOU ESPINOSA When Why: Follow-up as scheduled Where: [address] [facility] [place] [phone] Allergies NKA Medications Please ask your primary doctor or pharmacist before taking any other medication not listed, including over the counter drugs, herbal medications, vitamins and or supplements as they may interact withyour home medications. What How Much When Instructions Last Dose New losartan (losartan 100 mg oral tablet) 1 tab(s) by mouth Once a day Refills: 6 Pickup at [id number] Changed metoprolol (Toprol-XL 50 mg oral tablet, extended release) 1 tab(s) by mouth Two (2) times a day Pickup at [facility] #[id number] Unchanged allopurinol (allopurinol 100 mg oral tablet) [...] Duration: 14 Days Pharmacy Information [facility] #[id number]: [address], [place] [id number] [phone] What How Much When Comments Stop Taking [...] Document Reviewed: 05/16/2014 ExitCare Patient Information 2015 [employer] Systems [facility]. This information is not intended to replace [...] before eating solid foods. General instructions Take takw-ald-wepctss and prescription medicines only as told by [...] Document Reviewed: 09/04/2016 Elsevier Patient Education 2020 PathoQuest Inc. Additional Information VACCINATE! IT SAVES LIVES! Members of the community who have not yet received the COVID-19 vaccine and would like to receive it can visit one of [facility] vaccine clinics. There are many vaccine clinic locations within the [facility]. For locations and available times, please visit [email or web address]/. It is important to note that some COVID mobile vaccine clinics are held outdoors and may be canceled in rainy or stormy conditions. To learn more about pediatric vaccinations (ages 5-11), we invite you to visit the [employer] webpage. https://www.[employer].org/pages/3234-Cfqvs-Lfnvysgccmg-Uvekzjmygp-Leuso-Byz stions.htmlTo learn more about the COVID-19 vaccine, we invite you to visit the CDC website for a list of frequently asked questions.https://www.cdc.gov/coronavirus/2019-ncov/vaccines/faq.html [facility] Patient Portal Access Instructions: Stay connected with your healthcare team and access your personal medical information anytime with the [facility] Patient Portal. Please follow the directions below to create your [employer] account: 1.Access the email account you provided upon registration to the hospital/physician office.2.Look for an invitation email from [facility].3.Open the email and access the invitation link: AcceptInvitation to [facility].4.Fill in the required orr to create your account. To access your account, visit Liibook/LSAT FreedomOneChart. Click the blue button labeled Access Patient [...] who you will allowto register on the [facility] for access to your information. You can also access the [facility] Patient Portal on the [facility] frida. Simply click on Patient Portal and then log into your account. If you would like to receive a full copy of your medical records, please contact the [facility] Medical Records Department by calling [phone], Monday through Monday between 8 a.m. and [...] Call your local pharmacy or go to [email or web address] to find one close to you.3.Make use of household items: Use cat litter or old coffee grounds to dispose medications if other options arenot available. Mix your drugs with these household products, seal them in an airtight container andthrow it into the garbage. Call [facility]: [phone] to be sure your drugs can be [...] aware that I should contact my doctor. 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 Signature: Date/Time: Relationship to Patient: Witness Name/Signature: Date/Time: [facility]07-28-2023 Anesthesiology Consult note Patient: CARLOS ALBERTO KELLEY Age: 52 years Sex: Male : 1970 Associated Diagnoses: None Author: BRAULIO WRIGHT APRN-CHURCH BUSINESS ADMINISTRATOR Assessment Postanesthesia assessment Vitals: Vital signs from [...] by BRAULIO WRIGHT on 12/23/2022 07:23 AM [facility]07-28-2023 Anesthesiology Consult note Patient: CARLOS ALBERTO KELLEY [...] Problem list: Medical Anxiety / SNOMED CT 33648017 / Confirmed Atopic dermatitis / SNOMED CT 56058221 / Confirmed BMI 45.0-49.9, adult / SNOMED CT 5184224949 / Confirmed Diabetes mellitus / SNOMED CT 047972661 / Confirmed Hypertension / SNOMED CT 4897948434 / Confirmed Insomnia / SNOMED CT 058433515 / Confirmed Morbid obesity / SNOMED CT 396607117 / Confirmed Chewing tobacco nicotine dependence / SNOMED CT 59636220 / Confirmed Obstructive sleep apnea / SNOMED CT 547340537 / Confirmed Screening for ischemic heart disease / SNOMED CT 908626874 / Confirmed Persistent atrial fibrillation / SNOMED CT 2990220772 / Confirmed Prediabetes / SNOMED CT 0467854070 / Confirmed, Active Problems (16) Anxiety Atopic [...] History: History is unknown. Procedure history: Elbow ([id number]). Comments: 07/11/2022 8:26 SHAHEEN Nunez - right [...] patch - 12/13/2022 14:44 - Naresh Mcgregor HAND TWISTER Nutrition/Health 12/23/2022 Caffeine intake amount: pop 3 daily . Physical Examination Vital Signs 12/23/2022 6:34 EDT Temperature Temporal Artery 35.3 DegC Peripheral Pulse Rate 85 bpm Respiratory Rate 20 br/min Systolic Blood Pressure Non-Invasive 103 mmHg Diastolic Blood Pressure Non-Invasive 76 mmHg Vital Signs(last 24 hrs) Last Charted Resp Rate 20 br/min (DEC 23 06:34) SJI481 mmHg (DEC 23 06:34) DBP76 mmHg (DEC 23 06:34) Measurements from flowsheet : Measurements 12/23/2022 6:37 EDT Height 175.3 cm Edison Body Weight 70.74 kg 12/23/2022 6:34 EDT Height 175.3 cm Admission Weight 144 kg Edison Body Weight 70.74 kg Admission Body Mass [...] Surgeon SN - CAt - Role Performed Engineering Technician Parking 1 SN - CAt - Role Performed CHURCH BUSINESS ADMINISTRATOR 12/23/2022 6:49 EDT Wrist Left 12/23/2022 20 [...] Person #1 We May Share YAW OSPINA [phone] Designated Person #1 Relationship Sibling Height 175.3 cm Edison Body Weight 70.74 kg Status N/A Sensory [...] evident Teaching Method Explanation Preferred Spoken Language Citizen Of [place] Preferred Written Language Citizen Of [place] Information Given by Patient Patient's Current Physicians Patient's Current Physicians Discharge To, Anticipated Home independently Prev Test Positive/Diagnosis w/COVID-19 No Current Quarantine/Isolated any Illness No Any Contact with Sick Animals/Birds No Traveled Anywhere in Last 30 Days No N/A Personal Devices, Patient Valuables None Admission Note-Nursing Procedure/Therapy Intake 12/23/2022 6:34 EDT Height 175.3 cm Admission Weight 144 kg Edison Body Weight 70.74 kg Admission Body Mass [...] Ordered (In Progress) . Assessment and Plan Chinese Society of Anesthesiologists (ASA) physical status classification: Class III. Anesthetic Preoperative Plan Anesthetic technique: MAC. Informed consent: signed by patient. Digitally Signed by BRAULIO WRIGHT on 12/23/2022 07:21 AM [facility]06-01-2023 Hospital Discharge instructions Patient Education [...] Swelling, pain or redness in one leg [id number] The [employer]. [address] [place] [address]. All rights reserved. This information is not [...] very fast heart rate Loss of consciousness 5021-5335 [employer]. [address] [place] [address]. All rights reserved. This information is not intended as a substitute for professional medical care. Always follow yourhealthcare professional's instructions. Follow Up Care 10/27/2022 05:02:35 With:GIRMA CORREA Address: [address] [facility] [facility] [place] [phone] Business (1) When:2-4 days Comments:Follow close with your doctor, continue medications, return if any worsening or concerning symptoms. [facility] Note Discharge Instructions Thank you [...] concerning symptoms. Where: [address] [facility] [place] [phone] Business (1) Allergies NKA Medications Please ask [...] pain or redness in one leg [employer]. [address] [place] [address]. All rights reserved. This information is not [...] fast heart rate Loss of consciousness [employer]. [address] [place] [address]. All rights reserved. This information is not intended as a substitute for professional medical care. Always follow yourhealthcare professional's instructions. Additional Information VACCINATE! IT SAVES LIVES! Members of the community who have not yet received the COVID-19 vaccine and would like to receive it can visit one of [facility] vaccine clinics. There are many vaccine clinic locations within the [facility]. For locations and available times, please visit www.[email or web address].[place].gov/. It is important to note that some COVID mobile vaccine clinics are held outdoors and may be canceled in rainy or stormy conditions. To learn more about pediatric vaccinations (ages 5-11), we invite you to visit the [facility] webpage. https://www.[email or web address].org/pages/1208-Tyvpr-Ycpmotkzgel-Usovxqmcyu-Wrqbj-Epa stions.htmlTo learn more about the COVID-19 vaccine, we invite you to visit the CDC website for a list of frequently asked questions. https://www.cdc.gov/coronavirus/2019-ncov/vaccines/faq.html [facility] Patient Portal Access Instructions: Stay connected with your healthcare team and access your personal medical information anytime with the [facility] Patient Portal. If you would like a full copy of your medical records please contact the [facility] Medical Records Department Monday through Monday between 8a.m. and 4:30p.m. Please follow the directions below to access the portal: 1.Access the email account you provided upon registration to the hospital.2.Look for an invitation email from [facility].3.Open the email and access the invitation link: Accept Invitation to [facility]4.Fill in the required orr to create your account. Sign into [email or web address] with your username and password that you [...] you will allow to register on the [facility] Patient Portal for access to your information. You can also access the [facility] Patient Portal on the [employer] Private frida. Simply click on Health Records under [employer] and then click on the Larry logo. [...] Call your local pharmacy or go to [email or web address] to find one close to you.3.Make use of household items: Use cat litter or old coffee grounds to dispose medications if other options arenot available. Mix your drugs with these household products, seal them in an airtight container andthrow it into the garbage. Call [facility]: [phone] to be sure your drugs can be [...] aware that I should contact my doctor. 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 Signature: Date/Time: Relationship to Patient: Witness Name/Signature: Date/Time: [facility]06-01-2023 Note ORIGINAL EXAMINATION: ONE XRAY [...] 10/27/2022 6:14:45 AM Ordering Provider: OLLIE BROOKE [facility]06-01-2023 Note ORIGINAL EXAMINATION: ONE XRAY [...] Sign Date: 10/27/2022 6:14:45 AM Ordering Provider: [facility]05-30-2023 Hospital Discharge instructions Patient Education 10/25/2022 01:25:48 [...] your body to your neck and face. 1296-7055 The [employer]. [address] [place] [address]. All rights reserved. This information is not intended as a substitute for professional medical care. Always follow [facility] professional's instructions. 10/25/2022 01:25:36 Atrial Fibrillation Atrial [...] vision Extreme drowsiness, confusion, dizziness, or fainting 1015-8245 [employer]. [address] [place] [address]885. All rights reserved. This information is not [...] Swelling, pain or redness in one leg 0072-9751 [employer]. [address] [place] [address]. All rights reserved. This information is not [...] veins, fluid leaks out into the tissues. [place] then causes that fluid to move to [...] away Feeling much more tired than usual 6633-4323 [employer]. [address] [place] [address], [place] [address]. All rights reserved. This information is not intended as a substitute for professional medical care. Always follow yourhealthcare professional's instructions. Follow Up Care 10/24/2022 23:09:33 With:Call Physician Referral Address:Unknown When:2-4 days Comments:Call for referral to establish a primary care doctor you can see on a regular basis. With:SADE STRAUSS Address: [address] [facility] [address] [place] [phone] Business (1) When:2-4 days Comments:Schedule an appointment to establish a hotel recreational facilities manager you can see on a regular basis.Double your doseof Lasix from 20 mg once a day to 20 mg twice a day.Continue all other routine medications including the ones you were recently prescribed from [facility].Use potassium supplement and sleep aid (trazodone) as prescribed.Return to the ED if symptoms worsen. [facility] 05-30-2023 Note Discharge Instructions Thank you for allowing [facility] to assist you with your healthcare needs. [...] Why: Schedule an appointment to establish a hotel recreational facilities manager you can see on a regular basis. Double your dose of Lasix from 20 mg once a day to 20 mg twice a day. Continue all other routine medications including the ones you were recently prescribed from [facility]. Use potassium supplement and sleep aid (trazodone) as prescribed. Return to the ED if symptoms worsen. Where: [address] [place] [address]- [phone] Business (1) Allergies NKA Medications Please ask [...] may report side effects to FDA at 5-324-INH-3609. What other drugs will affect potassium chloride? Tell your doctor about all your other medicines, especially: medicine to prevent organ transplant rejection; a diuretic or 'water pill'; or heart or blood pressure medication. This list is not complete. Other drugs may affect potassium chloride, including prescription and atpq-fvx-qxymupz medicines, vitamins, and herbal products. Not all [...] to ensure that the information provided by [employer]. ('Multum') is accurate, up-to-date, and complete, but no guarantee is made to that effect. Drug information contained herein may be time sensitive. [employer] information has been compiled for use by healthcare practitioners and consumers in the [place] and therefore [employer] does not warrant that uses outside of the [place] are appropriate, unless specifically indicated otherwise. ICU [employer] drug information does not endorse drugs, diagnose patients or recommend therapy. [facility] [employer]s drug information isan informational resource designed to [...] effective or appropriate for any given patient. [employer] does not assume any responsibility for any aspect of healthcare administered with the aid of information [employer] provides. The information contained herein is not intended to cover all possible uses, directions, precautions, warnings, drug interactions, allergic reactions, or adverse effects. If you have questions about the drugs you are taking, check with your doctor, nurse or pharmacist. Copyright 2639-2617 [employer]. Version: 14.. Revision Date: 10/24/2019. trazodone (TRAZ [...] may report side effects to FDA at 3-735-FUY-0275. What other drugs will affect trazodone? Using trazodone with other drugs that make you drowsy can worsen this effect. Ask your doctor before using opioid medication, a sleeping pill, a muscle relaxer, or medicine for anxiety or seizures. Tell your doctor about all your current medicines. Many drugs can affect trazodone, especially: any other antidepressants; phenytoin; [place]'s wort; tramadol; a diuretic or 'water pill'; medicine to treat anxiety, mood disorders, or mental illness such as schizophrenia; a blood thinner--warfarin, Coumadin, Jantoven; or migraine headache medicine--sumatriptan, Imitrex, Maxalt, Treximet, and others. This list is not complete and many other drugs may affect trazodone. This includes prescription mhmjelr-qfg-iikxgoz medicines, vitamins, and herbal products. Not all [...] to ensure that the information provided by [employer]. ('Multum') is accurate, up-to-date, and complete, but no guarantee is made to that effect. Drug information contained herein may be time sensitive. [employer] information has been compiled for use by healthcare practitioners and consumers in the [place] and therefore [employer] does not warrant that uses outside of the [place] are appropriate, unless specifically indicated otherwise. [employer]'s drug information does not endorse drugs, diagnose patients or recommend therapy. [employer]'s drug information isan informational resource designed to [...] effective or appropriate for any given patient. [facility] does not assume any responsibility for any aspect of healthcare administered with the aid of information [facility] provides. The information contained herein is not intended to cover all possible uses, directions, precautions, warnings, drug interactions, allergic reactions, or adverse effects. If you have questions about the drugs you are taking, check with your doctor, nurse or pharmacist. Copyright 5133-3177 [facility]. Version: 10.. Revision Date: 11/09/2020. Education Materials [...] your body to your neck and face. 1004-4738 [employer]. [address] [place] [address]. All rights reserved. This information is not [...] vision Extreme drowsiness, confusion, dizziness, or fainting 0588-4988 [employer]. [address] [place] [address], [place] [address]. All rights reserved. This information is not [...] Swelling, pain or redness in one leg 3970-9615 [employer]. [address] [place] [address]. All rights reserved. This information is not [...] veins, fluid leaks out into the tissues. [place] then causes that fluid to move to [...] away Feeling much more tired than usual 4044-6648 [employer]. [address] [place] [address]68. All rights reserved. This information is not intended as a substitute for professional medical care. Always follow yourhealthcare professional's instructions. Additional Information VACCINATE! IT SAVES LIVES! Members of the community who have not yet received the COVID-19 vaccine and would like to receive it can visit one of [facility] vaccine clinics. There are many vaccine clinic locations within the [facility]. For locations and available times, please visit www.[email or web address].[email or web address].gov/. It is important to note that some COVID mobile vaccine clinics are held outdoors and may be canceled in rainy or stormy conditions. To learn more about pediatric vaccinations (ages 5-11), we invite you to visit the [facility] webpage. https://www.[facility].org/pages/9341-Nktti-Bfqeehbcprr-Lwghadzchz-Xhatl-Efm stions.htmlTo learn more about the COVID-19 vaccine, we invite you to visit the CDC website for a list of frequently asked questions. https://www.cdc.gov/coronavirus/2019-ncov/vaccines/faq.html [facility] Patient Portal Access Instructions: Stay connected with your healthcare team and access your personal medical information anytime with the [facility] Patient Portal. If you would like a full copy of your medical records please contact the [facility] Medical Records Department Monday through Monday between 8a.m. and 4:30p.m. Please follow the directions below to access the portal: 1.Access the email account you provided upon registration to the [facility].2.Look for an invitation email from [facility].3.Open the email and access the invitation link: Accept Invitation to [facility]4.Fill in the required orr to create your account. Sign into [email or web address] with your username and password that you [...] you will allow to register on the [facility] Patient Portal for access to your information. You can also access the [facility] Patient Portal on the Yobble. Simply click on Health Records under [employer] and then click on the [employer] logo. HOW TO SAFELY DISPOSE OF PRESCRIPTION [...] Call your local pharmacy or go to http://bit.randal/1X3By8t to find one close to you.3.Make use of household items: Use cat litter or old coffee grounds to dispose medications if other options arenot available. Mix your drugs with these household products, seal them in an airtight container andthrow it into the garbage. Call [facility]: [phone] to be sure your drugs can be [...] aware that I should contact my doctor. 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 Signature: Date/Time: Relationship to Patient: Witness Name/Signature: Date/Time: [facility]05-30-2023 Note ORIGINAL EXAMINATION: CTA OF [...] aortic dissection. Lungs/pleura: Small bilateral pleural effusions soft work wrapper layer and examiner dependently. There is more fluid on the [...] Date: 10/25/2022 1:09:48 AM Ordering Provider: DEMI [facility] [id number] Note ORIGINAL EXAMINATION: CTA OF THE CHEST [...] aortic dissection. Lungs/pleura: Small bilateral pleural effusions soft work wrapper layer and examiner dependently. There is more fluid on the [...] 10/25/2022 1:09:48 AM Ordering Provider: [facility]05-29-2023 Note ORIGINAL [...] 10/24/2022 11:56:09 PM Ordering Provider: [facility]05-29-2023 Note ORIGINAL EXAMINATION: ONE XRAY VIEW OF [...] 10/24/2022 11:56:09 PM Ordering Provider: [facility]05-28-[address] Clemens [facility] October 23, 2022 10:40am Note Date/Time October 23, 2022 6:48a m [facility] Medical Records Department [address] [place] [address] Emergency Department Summary 10/23/22 MR#: [id number] Acct: [id number] Name: CARLOS ALBERTO KELLEY Jr. Rep #:[id number] : 1970 52 From: Timothy Brown DO [...] gets short of breath. Patient states his hotel recreational facilities manager is a Dr. Barr out of [facility]. [facility] Medical History (Updated 10/23/22 @ 06:09 [...] IV and his heart rate is now [id number]. CBC shows no leukocytosis. Hemoglobin macular stable. [...] % (Auto) 67.9 Lymph % (Auto) 19.0 Aurora % (Auto) 9.6 Eos % (Auto) 2.4 [...] problems, contact your Primary Care Provider. Call [facility] ([phone]) or report to the closest Emergency Room. [...] and atrial fibrillation. He has relocated from [place]. He does not have a local hotel recreational facilities manager. Patient has not taken his Xarelto [...] (if applicable): cc: ZACARIAS COHN ~* Signed [facility] Work Phone: [phone] Hospital Discharge instructions Patient Education 07/15/2022 21:17:24 [...] temperature. Use toothpaste made for sensitive teeth. [place] gently up and down instead of sideways. Brushing sideways can wear away root surfaces if they are exposed. If your tooth is chipped or cracked, or if there is a large open cavity, put oil of cloves directlyon the tooth to relieve pain. You can buy oil of cloves at [facility]. Some pharmacies carry an xaye-jnd-viczbsw toothache kit. This contains a paste that you can put on the exposed tooth to make it less sensitive. Put a cold pack on your jaw over the sore area to help reduce pain. You may use ocrh-jiw-wyeojvy medicine to ease pain, unless your doctor [...] healthcare provider Pus drains from the tooth 0820-6269 [employer]. [address] [place] [address], [place] [address]. All rights reserved. This information is not intended as a substitute for professional medical care. Always follow yourhealthcare professional's instructions. Follow Up Care 07/15/2022 20:40:26 With:Dental Referral List Address: When:2-4 days [facility] 02-17-2023 Note Discharge Instructions Thank you for allowing [facility] to assist you with your healthcare needs. [...] When Why Instructions Last Dose New acetaminophen-hydrocodone ([place] 325- 5 mg oral tablet) 1 tab(s) [...] temperature. Use toothpaste made for sensitive teeth. [place] gently up and down instead of sideways. Brushing sideways can wear away root surfaces if they are exposed. If your tooth is chipped or cracked, or if there is a large open cavity, put oil of cloves directlyon the tooth to relieve pain. You can buy oil of cloves at drugstores. Some pharmacies carry an iegm-cnw-dljvhsj toothache kit. This contains a paste that you can put on the exposed tooth to make it less sensitive. Put a cold pack on your jaw over the sore area to help reduce pain. You may use upqj-rnf-hhzapis medicine to ease pain, unless your doctor [...] healthcare provider Pus drains from the tooth 0088-3290 [employer]. [address] [place] [address]. All rights reserved. This information is not intended as a substitute for professional medical care. Always follow yourhealthcare professional's instructions. Additional Information VACCINATE! IT SAVES LIVES! Members of the community who have not yet received the COVID-19 vaccine and would like to receive it can visit one of [facility] vaccine clinics. There are many vaccine clinic locations within the [facility]. For locations and available times, please visit www.gettheshot.coronavirus.[place].gov/. It is important to note that some COVID mobile vaccine clinics are held outdoors and may be canceled in rainy or stormy conditions. To learn more about pediatric vaccinations (ages 5-11), we invite you to visit the [facility] webpage. https://www.[facility].org/pages/8531-Eobgs-Kuwcfqlcwmr-Qemahofflp-Yyqhw-Vjf stions.htmlTo learn more about the COVID-19 vaccine, we invite you to visit the CDC website for a list of frequently asked questions. https://www.cdc.gov/coronavirus/2019-ncov/vaccines/faq.html [facility] [employer] Patient Portal Access Instructions: Stay connected with your healthcare team and access your personal medical information anytime with the [facility] Patient Portal. If you would like a full copy of your medical records please contact the [facility] Medical Records Department Monday through Monday between 8a.m. and 4:30p.m. Please follow the directions below to access the portal: 1.Access the email account you provided upon registration to the [facility].2.Look for an invitation email from [facility].3.Open the email and access the invitation link: Accept [facility]itation to [facility].Fill in the required orr to create your account. Sign into [email or web address] with your username and password that you [...] you will allow to register on the [facility] Patient Portal for access to your information. You can also access the [facility] Patient Portal on the Yobble. Simply click on Health Records under [employer] and then click on the [employer] logo. HOW TO SAFELY DISPOSE OF PRESCRIPTION [...] Call your local pharmacy or go to http://bit.myThings/2L0Uo0z to find one close to you.3.Make use of household items: Use cat litter or old coffee grounds to dispose medications if other options arenot available. Mix your drugs with these household products, seal them in an airtight container andthrow it into the garbage. Call [facility]: [phone] to be sure your drugs can be [...] aware that I should contact my doctor. 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 You may use jbub-pnq-vlhjode pain medicine to control pain, unless another [...] hand becomes cold, blue, numb, or tingly 8927-1879 [employer]. [address] [place] [address], [place] [address]. All rights reserved. This information is not intended as a substitute for professional medical care. Always follow yourhealthcare professional's instructions. Follow Up Care 07/11/2022 08:20:34 With:DO MELISSA COHN DO Address: [address] [place] [phone] When:3-7 days With:Go to emergency room if symptoms worsen Address:Unknown When:2-4 days [facility] 02-13-2023 Note Discharge Instructions Thank you for allowing [facility] to assist you with your healthcare needs. [...] COHN DO When Within 3-7 days Where: [address] [place] [address] [address] [place] [address] Follow Up with Go to [...] alternate ice and heat. You may use unss-qri-dhueqti pain medicine to control pain, unless another [...] hand becomes cold, blue, numb, or tingly 5737-6867 [employer]. [address] [place] [address], [place] [address]. All rights reserved. This information is not intended as a substitute for professional medical care. Always follow yourhealthcare professional's instructions. Additional Information VACCINATE! IT SAVES LIVES! Members of the community who have not yet received the COVID-19 vaccine and would like to receive it can visit one of [facility] vaccine clinics. There are many vaccine clinic locations within the [facility]. For locations and available times, please visit www.[email or web address]. It is important to note that some COVID mobile vaccine clinics are held outdoors and may be canceled in rainy orstormy conditions. To learn more about pediatric vaccinations (ages 5-11), we invite you to visit the [facility] webpage. https://www.[facility].org/pages/9789-Vxodo-Gyvtsnzllbo-Pkbhbxbzpi-Vubum-Ypm stions.htmlTo learn more about the COVID-19 vaccine, we invite you to visit the [facility] website for a list of frequently asked questions. https://north hollywoodLeisureLogix/assets/Bpsmblcy-wjc-Qotrllvv/rquju-Xvednnn-Odlabfcxyr _Asked-Questions.pdf [facility] Patient Portal Access Instructions: Stay connected with your healthcare team and access your personal medical information anytime with the [facility] Patient Portal. If you would like a full copy of your medical records please contact the [facility] Medical Records Department Monday through Monday between 8a.m. and 4:30p.m. Please follow the directions below to access the portal: 1.Access the email account you provided upon registration to the [facility].2.Look for an invitation email from [facility].3.Open the email and access the invitation link: Accept Invitation to [facility]4.Fill in the required orr to create your account. Sign into [email or web address] with your username and password that you [...] you will allow to register on the [facility] Patient Portal for access to your information. You can also access the [facility] Patient Portal on the Yobble. Simply click on Health Records under HealthData and then click on the [employer] logo. HOW TO SAFELY DISPOSE OF PRESCRIPTION [...] Call your local pharmacy or go to http://OpenPeak.myThings/6U5Wn7p to find one close to you.3.Make use of household items: Use cat litter or old coffee grounds to dispose medications if other options arenot available. Mix your drugs with these household products, seal them in an airtight container andthrow it into the garbage. Call [facility]: [phone] to be sure your drugs can be [...] aware that I should contact my doctor. 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 Signature: Date/Time: Relationship to Patient: Witness Name/Signature: Date/Time: [facility]02-13-2023 Note ORIGINAL EXAMINATION: THREE XRAY [...] 07/11/2022 8:51:46 AM Ordering Provider: MALORIE PEGUERO [place] [address]-13-2023 Note ORIGINAL EXAMINATION: THREE XRAY VIEWS OF [...] 07/11/2022 8:51:46 AM Ordering Provider: [facility]09-12-[address] [place] [address] PERSONAL HISTORY AND PHYSICAL : [phone] Signed Name: CARLOS ALBERTO KELLEY JR Lucian MRUN: [id number] : 1970 Loc: ENDO Age / Sex: 51/ M Adm Status: PRE [facility] Adm Date:02/15/22 Room/Bed: A 51-year-old patient of [facility] in [place], who comes to discuss endoscopy. He has [...] Dictated Date/Time: 02/07/22 1659 Transcribed Date/Time: 02/07/22 [facility]16[facility] CIRILO MCDONOUGH DO: PERFORM, SIGN, VERIFY Event Display: Anesthesiology Consultation Authored Date: [id number] Patient: CARLOS ALBERTO KELLEY Age: 53 years [...] device, # 1 EA, 0 Refill(s), Pharmacy: [facility], 177.8, cm, 11/28/23 13:54:00 EDT, Height, 151.4, kg, 11/28/23 13:54:00 EDT, Dosin... Blood Glucose Test Strips: See Instructions, 1 bottle of 100 Test once daily, # 1 EA, 11 Refill(s), Pharmacy: [facility], 177.8, cm, 11/28/23 13:54:00 EDT, Height, 151.4, kg, 11/28/23 13:54:00 EDT, Dosing Weight FLUoxetine 20 mg oral capsule: Dose : 20 mg = 1 cap(s), Oral, qDay, # 30 cap(s), 3 Refill(s), Pharmacy: [facility], 177.8, cm, 11/28/23 13:54:00 EDT, Height, kg, 11/28/23 13:54:00 EDT,Dosing Weight Lancets: See Instructions, qs 1 month supply Test once daily, # 1 EA, 11 Refill(s), Pharmacy: [facility], 177.8, cm, 11/28/23 13:54:00 EDT, Height, 151.4, kg, 11/28/23 13:54:00 EDT, Dosing Weight Lasix 40 mg oral tablet: See Instructions, 1 tab in AM and 0.5 tab in PM, # 135 tab(s), 3 Refill(s), Pharmacy: [facility], 177.8, cm, 11/28/23 13:54:00 EDT, Height, kg, 11/28/23 13:54:00 EDT, Dosing Weight Symbicort 80 mcg-4.5 mcg/inh Inhaler: Dose = 2 puff(s), Inhalation, BID, # 10.2 gram(s), 3 Refill(s), Pharmacy: [facility], 177.8, cm, 11/28/23 13:54:00 EDT, Height, kg, 11/28/23 13:54:00 EDT, Dosing Weight Tikosyn 250 mcg oral capsule: Dose : 250 mcg = 1 cap(s), Oral, BID, # 180 cap(s), 3 Refill(s), Pharmacy: [facility]/pharm[facility] #[id number], 177.8, cm, 11/28/23 13:54:00 EDT, Height, kg, 11/28/23 13:54:00 EDT, Dosing Weight Toprol-XL 100 mg oral tablet, extended release: Dose : 100 mg = 1 tab(s), Oral, BID, do not crush or chew, # 180 tab(s), 3 Refill(s), Pharmacy: [facility], Shortness of breath, 177.8, cm, 11/28/23 13:54:00 EDT, Height, kg, 11/28/23 13:54:00 EDT, Dosing Weight Trulicity Pen 1.5 mg/0.5 mL subcutaneous solution: Dose : 1.5 mg =, Subcutaneous, qWeek, sent in absence of PCP, # 4 EA, 3 Refill(s), Pharmacy: [facility], 177.8, cm, 11/28/23 13:54:00EDT, Height, kg, 11/28/23 13:54:00 EDT, Dosing Weight Vistaril 25 mg oral capsule: Dose : 25 mg = 1 cap(s), Oral, QID, PRN as needed for anxiety, X 30 day(s), # 120 cap(s), 5 Refill(s), 06/09/24 16:10:00 EST, Pharmacy: [facility], 177.8, cm, 11/28/23 13:54:00 EDT, Height, kg, 11/28/23 13:54:00 EDT, Dosing Weight Xarelto 20 mg oral tablet: Dose : 20 mg = 1 tab(s), Oral, qHS, # 90 tab(s), 3 Refill(s), Pharmacy: [facility], 177.8, cm, 11/28/23 13:54:00 EDT, Height, 151.4, kg, 11/28/23 13:54:00 EDT, Dosing Weight allopurinol 100 mg oral tablet: Dose : 100 mg = 1 tab(s), Oral, qDay, # 90 tab(s), 3 Refill(s), [facility] - [facility], 177.8, cm, 11/28/23 13:54:00 EDT, Height, kg, 11/28/23 13:54:00 EDT, Dosing Weight cetirizine 10 mg oral tablet: Dose : 10 mg = 1 tab(s), Oral, Daily, # 90 tab(s), 3 Refill(s), Pharmacy: [facility], 177.8, cm, 11/28/23 13:54:00 EDT, Height, kg, 11/28/23 13:54:00 EDT,Dosing Weight nystatin 100,000 units/g topical cream: Apply 1 frida, Topical, BID, X 10 day(s), # 30 gram(s), 1 Refill(s), Pharmacy: [facility]/pharmacy #[id number], Cream, 177, cm, 01/12/24 9:42:00 EDT, Height, 148.6, kg, 01/12/24 9:42:00 EDT, Dosing Weight omeprazole 40 mg oral delayed release capsule: Dose : 40 mg = 1 cap(s), Oral, BID, before a meal., # 180 cap(s), 3 Refill(s), Pharmacy: [facility], 177.8, cm, 11/28/23 13:54:00 EDT, Height, kg, 11/28/23 13:54:00 EDT, Dosing Weight rosuvastatin 20 mg oral tablet: Dose : 20 mg = 1 tab(s), Oral, Daily, # 100 tab(s), 3 Refill(s), Pharmacy: [facility], 177.8, cm, 11/28/23 13:54:00 EDT, Height, kg, 11/28/23 13:54:00 EDT, Dosing Weight sacubitril-valsartan 49 mg-51 mg oral tablet: Dose = 1 tab(s), Oral, BID, # 180 tab(s), 3 Refill(s), Pharmacy: [facility], 177.8, cm, 11/28/23 13:54:00 EDT, Height, kg, 11/28/23 13:54:00 EDT, Dosing Weight spironolactone 25 mg oral tablet: Dose : 25 mg = 1 tab(s), Oral, qDay, # 90 tab(s), 3 Refill(s), Pharmacy: [facility], 177.8, cm, 11/28/23 13:54:00 EDT, Height, kg, 11/28/23 13:54:00 EDT, Dosing Weight tiZANidine 2 mg oral tablet: Dose : 2 mg = 1 tab(s), Oral, q8h, PRN as needed for muscle spasm, # 90 tab(s), 2 Refill(s), Pharmacy: [facility], 177.8, cm, 11/28/23 13:54:00 EDT, Height, kg, 11/28/23 13:54:00 EDT, Dosing Weight traZODone 100 mg oral tablet: Dose : 100 mg = 1 tab(s), Oral, qHS, # 90 tab(s), 3 Refill(s), Pharmacy: [facility], 177.8, cm, 11/28/23 13:54:00 EDT, Height, [...] list: Medical Asthma exacerbation / SNOMED CT 4693051737 / Confirmed Anxiety / SNOMED CT 22426632 / Confirmed Atopic dermatitis / SNOMED CT 52857461 / Confirmed BMI 45.0-49.9, adult / SNOMED CT 2026106315 / Confirmed Cardiomyopathy / SNOMED CT 535974024 / Confirmed Diabetes mellitus / SNOMED CT 325401199 / Confirmed Generalized anxiety disorder / SNOMED CT 02191968 / Confirmed Hyperlipidemia / SNOMED CT 41166761 / Confirmed Hypertension / SNOMED CT 5914896074 / Confirmed Insomnia / SNOMED CT 676734516 / Confirmed Moderate asthma / SNOMED CT 6159163927 / Confirmed Morbid obesity / SNOMED CT 046955003 / Confirmed Chewing tobacco nicotine dependence / SNOMED CT 60236553 / Confirmed Obstructive sleep apnea / SNOMED CT 464682500 / Confirmed Right knee pain / SNOMED CT 2325279927 / Confirmed Paroxysmal atrial fibrillation / SNOMED CT 962631051 / Confirmed Screening for ischemic heart disease / SNOMED CT 075958895 / Confirmed Screening for colon cancer / SNOMED CT 055640043 / Confirmed Prediabetes / SNOMED CT 7873256802 / Confirmed Right flank pain / SNOMED CT 074378107 / Confirmed Type 2 diabetes mellitus with hemoglobin A1c goal of less than 7.0% / SNOMED CT 611762678 / Confirmed Wheezing / SNOMED CT 36449670 / Confirmed, Active Problems (26) Anxiety Asthma [...] Mother Grandparent Stroke Father Procedure history: Cardioversion ([id number]) on 12/23/2022 at 52 Years. Echocardiogram ([id number]) on 11/11/2022 at 52 Years. Comments: 03/20/2023 [...] right atrial pressure is 15 mm Hg [facility] ([id number]). Comments: 07/11/2022 8:26 CRISTINO Sinha, SHAHEEN warner [...] On and Limits Checked Nail Bed Color Willows Capillary Refill < 2 seconds Heart Sounds [...] Elimination Voiding, no difficulties All Extremity Description Willows Skin Temperature Warm Temperature All Extremities Warm Skin Description Willows, Dry Skin Integrity Intact Skin Turgor Non-Elastic Mucous Membrane Color Willows Mucous Membrane Description Moist Neurological Language Able to speak clearly Neurological Symptoms Patient denies Gait Unable to assess Extremity Movement Equal Swallowing Difficulty None Characteristics of Communication Appropriate Characteristics of Speech Clear Facial Symmetry Symmetric Level of Consciousness Alert Aspiration Risk None Eye Opening Response Luis Felipe Spontaneously Best Motor Response [place] Obeys simple commands Best Verbal Response Luis Felipe Oriented Lui Sfelipe Coma Score 15 CLARA Yes Strength All [...] On and Limits Checked Nail Bed Color Willows Capillary Refill < 2 seconds Heart Sounds ICU S1S2 Heart Rhythm Irregular Cardiac Rhythm Sinus rhythm Monitoring Lead II, V5/MCL5 CT Interval 0.16 second(s) QRS Duration 0.08 second(s) [...] Elimination Voiding, no difficulties All Extremity Description Willows Skin Temperature Warm Temperature All Extremities Warm Skin Description Willows, Dry Skin Integrity Intact Skin Turgor Non-Elastic Mucous Membrane Color Willows Mucous Membrane Description Moist Neurological Language Able [...] date/time 01/31/2024 22:20 Provider Notified MILY MAURER APRN-CASING FLUID TENDER Notification Method Pager Information Communicated Medication request [...] On and Limits Checked Nail Bed Color Willows Capillary Refill < 2 seconds Heart Sounds [...] Movement Makes facial grimaces All Extremity Description Willows Skin Temperature Warm Temperature All Extremities Warm Skin Description Willows, Dry Skin Integrity Intact Skin Turgor Non-Elastic Mucous Membrane Color Willows Mucous Membrane Description Moist Sensory Perception [place] [...] commands Best Verbal Response Luis Felipe Oriented [place] Coma Score 15 CLARA Yes Left Pupil [...] On and Limits Checked Nail Bed Color Willows Capillary Refill < 2 seconds Heart Sounds [...] intact Skin Turgor Non-Elastic Mucous Membrane Color Willows Mucous Membrane Description Moist Neurological Language Able to speak clearly Neurological Symptoms Patient denies Extremity Movement Equal Swallowing Difficulty None Characteristics of Communication Appropriate Characteristics of Speech Clear Facial Symmetry Symmetric Level of Consciousness Alert Aspiration Risk None Eye Opening Response [place] Spontaneously Best Motor Response [place] Obeys simple commands Best Verbal Response [place] Oriented Luis Felipe Coma Score 15 CLARA [...] of Bed Elevated 30 01/31/2024 15:38 EDT [facility] Current Living Situation I have a steady place to live [facility] Current Issues Living Environment None [facility] Worried Food Running Out P12M Never true [facility] Food Gone, No Money To Buy P12M Never true [facility] No Transport Med/Appt/Work P12M No [facility] Utilities Threaten Shut Off P12M No [facility] Anyone Physically Hurt You Never (1) [facility] Anyone Insult Or Talk Down To You Never (1) [facility] Anyone Threaten You With Harm Never (1) [facility] Anyone Scream Or Curse At You Never (1) [facility] Safety Total Score 4 Living Situation Lives with family Discharge To, Anticipated Home independently Anticipated Discharge Date 02/02/2024 Transition Planning Note Transition Planning Initial Assessment 01/31/2024 15:36 EDT Primary Care Phone Message Transition of Care sent from [facility] 01/31/2024 14:59 EDT heparin 9,000 unit(s) unit(s) Dextrose 5% Premix Diluent 90 mL mL 01/31/2024 14:43 EDT [place] Body Weight 72.7 kg Home Diet Regular Weight Chg, Unintentional Nutrition Hx Weight stable per [place] history Appetite Good Nutrition Plan of Care Dietitian follow up/monitor, Encourage PO feedings, Participate in team conference Nutrition Follow-Up Needed Yes Days until Media Coordinator Follow Up Seven days Adult Nutrition Initial Assessment/Plan Adult Nutrition Assessment/Plan 01/31/2024 14:22 EDT Transition of Care Note Transition of Care sent from [facility] 01/31/2024 14:00 EDT Hand Right [...] On and Limits Checked Nail Bed Color Willows Capillary Refill < 2 seconds Heart Rhythm [...] Description Normal for ethnicity Mucous Membrane Color Willows Mucous Membrane Description Moist Hand Right 01/30/2024 [...] On and Limits Checked Nail Bed Color [place]ows Capillary Refill < 2 seconds Heart Rhythm [...] intact Skin Turgor Non-Elastic Mucous Membrane Color Willows Mucous Membrane Description Moist Continuous IV Infusions [...] Alert Aspiration Risk None Eye Opening Response [place] Spontaneously Best Motor Response Luis Felipe Obeys simple commands Best Verbal Response Luis Felipe Oriented [place] Coma Score 15 CLARA Yes Left Pupil [...] On and Limits Checked Nail Bed Color Willows Capillary Refill < 2 seconds Heart Rhythm [...] Description Normal for ethnicity Mucous Membrane Color Willows Mucous Membrane Description Moist Continuous IV Infusions [...] On and Limits Checked Nail Bed Color Willows Capillary Refill < 2 seconds Heart Rhythm [...] intact Skin Turgor Non-Elastic Mucous Membrane Color Willows Mucous Membrane Description Moist Continuous IV Infusions [...] commands Best Verbal Response Luis Felipe Oriented [place] Coma Score 15 CLARA Yes Left Pupil [...] On and Limits Checked Nail Bed Color Willows Capillary Refill < 2 seconds Heart Rhythm [...] intact Skin Turgor Non-Elastic Mucous Membrane Color Willows Mucous Membrane Description Moist Continuous IV Infusions [...] On and Limits Checked Nail Bed Color Willows Capillary Refill < 2 seconds Heart Rhythm [...] intact Skin Turgor Non-Elastic Mucous Membrane Color Willows Mucous Membrane Description Moist Hand Right 01/30/2024 [...] Alert Aspiration Risk None Eye Opening Response [place] Spontaneously Best Motor Response Luis Felipe Obeys [...] #1 We May Share PHI MARILYN OSPINA [phone] Designated Person #1 Relationship Sibling Designated Person #2 We May Share PHI Designated Person #2 We May Share PHI Designated Person #2 Relationship Significant other Privacy Restrictions Requested None Height 175 cm Height in inches 68.9 inch(es) Admission Weight 149.1 kg Weight Lbs 328 lb [place] Body Weight 70.46 kg BSA Admission 2.55 [...] evident Teaching Method Explanation Preferred Spoken Language Citizen [place] Preferred Written Language [place] Teaching Evaluation No further teaching needed Safety [...] On and Limits Checked Nail Bed Color Willows Capillary Refill < 2 seconds Heart Sounds [...] intact Skin Turgor Non-Elastic Mucous Membrane Color Willows Mucous Membrane Description Moist Sensory Perception [place] [...] Felipe Obeys simple commands Best Verbal Response [place] Oriented Luis Felipe Coma Score 15 CLARA [...] explained to patient, Risks and benefits explained [facility] senior human resources representative Transferring Physician MD SAMY JONES MD [...] Transfer Ground ambulance Required Personnel for Transfer Police Communications Dispatcher Ambulance [facility] Discharged to Another [...] 250 mL mL . Assessment and Plan [employer] (ASA) physical status classification: [...] CIRILO MCDONOUGH DO on 02/01/2024 06:26 AM [facility] Evaluation + Plan note No data available for this section [facility] Evaluation + Plan note Future Appointments Appointment Date:11/03/2022 09:15:00 AM Scheduled Provider:ZHOU ESPINOSA Location:[facility] Appointment Type:CV DOPE POURER Appointment Date:11/08/2022 02:00:00 PM Scheduled Provider:GIRMA CORREA Location:[facility] Appointment Type:PC DOPE POURER Unassigned ED Follow Up [facility] Evaluation + Plan note Future Appointments Appointment Date:11/04/2022 08:45:00 AM Scheduled Provider: Location:[facility] Appointment Type:CV DOPE POURER Appointment Date:11/08/2022 02:00:00 PM Scheduled Provider:GIRMA CORREA Location:[facility] Appointment Type:PC DOPE POURER Unassigned ED Follow Up [facility] Evaluation + Plan note Future Appointments Appointment Date:12/13/2022 03:00:00 PM Scheduled Provider:GIRMA CORREA Location:[facility] Appointment Type:PC OV Follow Up [facility] Evaluation + Plan note Future Appointments Appointment Date:02/07/2023 02:30:00 PM Scheduled Provider:GIRMA CORREA Location:[facility] Appointment Type:PC OV [facility] evaluation + Plan note Future Appointments Appointment Date:06/20/2023 02:30:00 PM Scheduled Provider:GIRMA CORREA Location:[facility] Appointment Type:PC OV Future Scheduled Tests Laboratory* Basic Metabolic Panel 04/01/23 * A1C Hemoglobin 06/09/23 * Lipid Profile 06/09/23 * Complete Metabolic Panel 06/09/23 [facility] evaluation + Plan note Future Appointments Appointment Date:08/22/2023 12:00:00 PM Scheduled Provider: Location:[facility] Appointment Type:PF PFT w/Bronchod[place]or Appointment Date:11/07/2023 02:00:00 PM Scheduled Provider:GIRMA CORREA Location:[facility] Appointment Type:PC OV Future Scheduled Tests Laboratory* Basic Metabolic Panel 04/01/23 [facility] Evaluation + Plan note Future Appointments Appointment Date:11/07/2023 02:00:00 PM Scheduled Provider:GIRMA CORREA Location:[facility] Appointment Type:PC OV Future Scheduled Tests Laboratory* Basic Metabolic Panel 04/01/23 [facility] Evaluation + Plan note Future Appointments Appointment Date:06/20/2023 10:00:00 AM Scheduled Provider:GIRMA CORREA Location:[facility] Appointment Type:PC OV Hospital Follow-Up Appointment Date:06/20/2023 02:30:00 PM Scheduled Provider:GIRMA CORREA Location:[facility] Appointment Type:PC OV Appointment Date:07/17/2023 03:15:00 PM Scheduled Provider:ZHOU ESPINOSA Location:[facility] Appointment Type:CV OV Future Scheduled Tests Laboratory* Basic Metabolic Panel 04/01/23 * A1C Hemoglobin 06/09/23 * Lipid Profile 06/09/23 * Complete Metabolic Panel 06/09/23 [facility] Evaluation + Plan note Future Appointments Appointment Date:02/13/2024 03:30:00 PM Scheduled Provider:GIRMA CORREA Location:[facility] Appointment Type:PC Wellness Annual w/Labs Future Scheduled Tests Laboratory* Basic Metabolic Panel 04/01/23 * Prostate Specific Antigen 02/07/24 * A1C Hemoglobin 02/07/24 * Lipid Profile 02/07/24 * Complete Metabolic Panel 02/07/24 [facility] Evaluation + Plan note Future Appointments Appointment Date:03/26/2024 08:00:00 PM Scheduled Provider: Location:[facility] Appointment Type: Sameer Study Appointment Date:05/14/2024 03:00:00 PM Scheduled Provider:GIRMA CORREA Location:[facility] Appointment Type:PC OV Lab Check Future Scheduled Tests Laboratory* Basic Metabolic Panel 02/07/24 * Basic Metabolic Panel 02/19/24 * Basic Metabolic Panel 04/01/23 * Magnesium Level 02/07/24 * A1C Hemoglobin 05/14/24 * Lipid Profile 05/14/24 * Complete Metabolic Panel 05/14/24 [facility] Evaluation + Plan note Future Appointments Appointment Date:04/01/2024 01:00:00 PM Scheduled Provider:DAMIAN SHRESTHA MD Location:[facility] Appointment Type:GS OV Appointment Date:05/14/2024 03:00:00 PM Scheduled Provider:GIRMA CORREA Location:[facility] Appointment Type:PC OV Lab Check Future Scheduled Tests Laboratory* Basic Metabolic Panel 02/07/24 * Basic Metabolic Panel 02/19/24 * Basic Metabolic Panel 04/01/23 * Magnesium Level 02/07/24 * A1C Hemoglobin 05/14/24 * Lipid Profile 05/14/24 * Complete Metabolic Panel 05/14/24 [facility] Evaluation + Plan note Future Appointments Appointment Date:02/13/2024 03:30:00 PM Scheduled Provider:GIRMA CORREA Location:[facility] Appointment Type: Wellness Annual w/Labs Future Scheduled Tests Laboratory* Basic Metabolic Panel 02/07/24 * Basic Metabolic Panel 02/19/24 * Basic Metabolic Panel 04/01/23 * Magnesium Level 02/07/24 [facility] Evaluation + Plan note Future Appointments Appointment Date:08/12/2024 03:00:00 PM Scheduled Provider:GIRMA CORREA Location:[facility] Appointment Type: Wellness Annual Future Scheduled Tests Laboratory* Basic Metabolic Panel 02/07/24 * Basic Metabolic Panel 02/19/24 * Magnesium Level 02/07/24 [facility] Evaluation + Plan note Future Appointments Appointment Date:10/23/2024 04:00:00 PM Scheduled Provider:GIRMA CORREA Location:[facility] Appointment Type:PC OV Appointment Date:11/08/2024 02:30:00 PM Scheduled Provider:EDY WEBER Location:[facility] Appointment Type: OV Hospital Follow Up Future Scheduled Tests Laboratory* Basic Metabolic Panel 02/07/24 * Basic Metabolic Panel 12/10/24 * Basic Metabolic Panel 02/19/24 * Magnesium Level 02/07/24 * Complete Blood Count 08/27/24 * Complete Metabolic Panel 08/27/24 * N-Terminal proBNP 08/27/24 [facility] Evaluation noteNo assessment information available [facility] Work Phone: Hospital Discharge instructions Additional Instructions Call Dr. Etienne's office on Monday to be seen later this coming week.[facility] Work Phone: Hospital Discharge instructions No data available for this section [facility] Hospital Discharge instructions Additional Instructions Chest x-ray negative. COVID and flu negative. Vapor rubs, humidifier. May use loratadine D that you have at home daily. Cough suppressants as needed. Follow-up with your doctor. Return if any worsening symptoms.[facility] Work Phone: Hospital Discharge instructionsAdditional Instructions Your cardiac workup negative in the ED. Your CT angiogram chest negative for blood clots or any acute findings., Your oxygen dropped down while in the emergency department. Your facility continue oxygen as needed. You have sleep apnea history.[facility] Work Phone: Progress note No data available for this section [facility] Reason for referral (narrative)No reason for referral information availableWACMC [facility] Work Phone: Summary note* MACIEJ Rasmussen: PERFORM Event Display: Patient Summary Documents Authored Date: [id number] [facility] Summary Purpose Family History No [...] October 23, 2022 6 :09am Power of Binder Folder Operator No October 23, 2022 6:09am Advance Directive Response Recorded Date/ Time Living Will No February 12, 2023 7:08am Power of Binder Folder Operator No January 7:08am Advance Directive Response Recorded Date/ Time Do you have a Healthcare Power of Binder Folder Operator? No December 19, 2024 10:20pm Chief Complaint and Reason for Visit Chief Complaint CHEST PAIN Chief Complaint CHEST PAIN cough Chief Complaint Admit Date SENIOR CARE LAB WORK October 24, 2024 6:2 0am [...] section and content) DATE CREATED AUTHOR 02/15/2021 [facility] DATE CREATED AUTHOR AUTHOR'S ORGANIZ ATION 08/25/2021 [facility] DATE CREATED AUTHOR AUTHOR'S ORGANIZ ATION 2021 [facility] DATE CREATED AUTHOR AUTHOR'S ORGANIZ ATION 06/07/2022 [facility] DATE CREATED AUTHOR AUTHOR'S ORGANIZ ATION 08/17/2022 [facility] DATE CREATED AUTHOR AUTHOR'S ORGANIZ ATION 10/13/2023 [facility] DATE CREATED AUTHOR AUTHOR'S ORGANIZ ATION 02/02/2024 [facility] DATE CREATED AUTHOR AUTHOR'S ORGANIZ ATION 10/23/2024 [facility] DATE CREATED AUTHOR AUTHOR'S ORGANIZ ATION 12/07/2024 [facility] DATE CREATED AUTHOR AUTHOR'S ORGANIZ ATION 12/19/2024 [facility] DATE CREATED AUTHOR AUTHOR'S ORGANIZ ATION 12/20/2024 [facility] Care Team (unrecognized sect ion and content) Care Team Personnel Name: PHYSICIAN, NONE Position: Physician Member Role: Primary Care Physician Name: MALORIE PEGUERO MD Position: ED Physician Member Role: ED Physician Address: Address: [facility] [address] [place] [address]- [place] Name: SHAHEEN Sinha Position: AO RN Member Role: ED RN Care Team Related Persons Name: MAST, MARILYN Care Team Personnel Name: PHYSICIAN, NONE Position: Physician Member Role: Primary Care Physician Name: JEREMIE MCCORMACK MD Position: ED Physician Member Role: ED Physician Address: Address: [facility] [address] [place] [address]- [place] Name: Halley Staples RN Position: AO [...] Bright MD Family Provider Active Girma Correa DOPE POURER, DOPE POURER-C Primary Care Provider Active Team Status: Inactive Member Role Status Dates Dr. Timothy Brown DO Attending Provider, Emergency Provider Active ROMAIN ADAMES Primary Care Provider Active Team Status: Inactive Member Role Status Dates Dr. Nguyễn Al DO Emergency Provider Active Girma Correa DOPE POURER, DOPE POURER-C Primary Care Provider Active Team Status: Active Member Role/Relationship Status Dates Dr. Jhonatan Garcia DO Primary Care Provider Active Team Status: Active Member Role/Relationship Status Dates Girma Correa DOPE POURER, DOPE POURER-C Primary Care Provider Active Start: October 24, 2024 Dr. Dolly HOLCOMB MD Attending Provider Active Start: October 24, 2024 Team Status: Active Member Role/Relationship Status Dates Girma Correa NP, DOPE POURER-C Primary Care Provider Active Start: October 28, 2024 Dr. Dolly HOLCOMB MD Attending Provider Active Start: October 28, 2024 Dr. Dolly HOLCOMB MD Referring Provider Active Start: October 28, 2024 Team Status: Active Member Role/Relationship Status Dates Girma Correa NP, DOPE POURER-C Primary Care Provider Active Start: October 30, 2024 Dr. Dolly HOLCOMB MD Attending Provider Active Start: October 30, 2024 Team Status: Active Member Role/Relationship Status Dates Girma Correa NP, DOPE POURER-C Primary Care Provider Active Start: November 04, 2024 Dr. Dolly HOLCOMB MD Attending Provider Active Start: November 04, 2024 Team Status: Active Member Role/Relationship Status Dates Girma Correa NP, DOPE POURER-C Primary Care Provider Active Start: November 06, [...] BE BASED ON THE PRIMARY CLINICAL RECORDS. [employer] provides no warranty or guarantee of the accuracy or completeness of information in this document.
--- NOTE | 2024-12-20 20:44 | ED.RN ---
Per [facility], pt sees Dr. Quintana for orthopedics at [facility] ([address] , [place], [place])
[2024-12-20] MEDS: Metoprolol(XL)Succ 100 MG Tablet PO (23:13)
[2024-12-21 03:14] VITALS: BMI 45.8
[2024-12-21 03:53] LABS: Hematocrit 45.3 % (40-54); Hemoglobin 14.2 g/dL (13.0-16.5); Immature Granulocytes Count 0.020 X10^3/uL (0.0-0.0); Mean Corp Hgb Conc 31.3 g/dL (32-36); Mean Corpuscular Volume 86.6 fL (80-94); Mean Platelet Vol. 9.8 fl (6.2-12.0); NRBC Flagged by Analyzer 0 % (0-5); Platelet Count 191 K/mm3 (150-450); RBC Distribution Width CV 13.8 % (11.6-14.6); RBC Distribution Width SD 43.9 fl (35.1-43.9); Red Blood Count 5.23 M/mm3 (4.6-6.2); White Blood Count 7.4 K/mm3 (4.4-11.0)
[2024-12-21 03:55] VITALS: BP 105/71; PULSE 75; RESP 16; TEMP 36.8; O2SAT 93
[2024-12-21 04:18] LABS: Anion Gap 10 (5-15); BUN 12 mg/dL (4-19); BUN/Creat Ratio 13.8 RATIO (10-20); Calcium,Total 9.2 mg/dL (7.6-11.0); Carbon Dioxide 29.1 mmol/L (21.0-32.0); Chloride 101 mmol/L (98-108); Estimated Creatinine Clearance 138.62 ml/min (50-250); Glucose 126 mg/dL (70-99); Potassium 4.5 mmol/L (3.3-5.1)
[2024-12-21 07:33] VITALS: PULSE 84; RESP 20; O2SAT 87
[2024-12-21] MEDS: Albuterol 2.5 MG/3 ML VIAL.NEB. INHALATION (07:33)
[2024-12-21] MEDS: Budesonide Respules 0.5 MG/2 ML AMPUL.NEB. INHALATION (07:33)
[2024-12-21 07:38] VITALS: O2SAT 94
--- NOTE | 2024-12-21 08:07 | PN.SURG_ITS ---
Subjective Subjective Much improvement in right hand range of motion. Doing quite well this morning. Has been compliant with elevation. He reports no numbness or tingling Objective Data Objective Data Vital Signs: Vital Signs Temp Pulse Resp BP Pulse Ox O2 Del Method 98.3 F 75 16 105/71 93 Room Air 12/21/24 03:55 12/21/24 03:55 12/21/24 03:55 12/21/24 03:55 12/21/24 03:55 12/21/24 03:55 Oxygen Delivery Method Room Air Weight: 309 lb 15.519 oz Body Mass Index (BMI) 45.8 Intake & Output: Intake and Output for Last 24 Hours 12/19/24 12/20/24 12/21/24 23:59 23:59 23:59 Intake Total 900 / 900 Output Total 700 / 700 Balance 200 / 200 Lab / Micro Data 12/21/24 03:42 12/21/24 03:42 Labs: Laboratory Results - last 24 hr 12/20/24 15:04: WBC 8.4, RBC 5.31, Hgb 14.3, Hct 46.2, MCV 87.0, MCH 26.9 L, M CHC 31.0 L, RDW Std Deviation 44.4 H, RDW Coeff of Tee 13.9, Plt Count 198, MPV 9.8, Immature Gran % (Auto) 0.400, Neut % (Auto) 76.3 H, Lymph % (Auto) 10.6 L, [place] % (Auto) 10.6 H, Eos % (Auto) 1.6, Baso % (Auto) 0.5, Absolute Neuts (auto) 6.4, Absolute Lymphs (auto) 0.89, Nucleated RBC % 0, Sodium 134, Potassium 4.2, Chloride 98, Carbon Dioxide 26.7, Anion Gap 10, BUN 12, Creatinine 0.94, Estim Creat Clear Calc 128.93, Est GFR (MDRD) Non-Af 97, BUN/Creatinine Ratio 12.3, G lucose 121 H, Calcium 9.2 12/20/24 23:19: POC Glucose 222 H 12/21/24 03:42: WBC 7.4, RBC 5.23, Hgb 14.2, Hct 45.3, MCV 86.6, MCH 27.2, MCHC 31.3 L, RDW Std Deviation 43.9, RDW Coeff of Tee 13.8, Plt Count 191, MPV 9.8, Immature Gran % (Auto) 0.300, Neut % (Auto) 68.8, Lymph % (Auto) 15.1 L, [place] % (Auto) 13.4 H, Eos % (Auto) 1.9, Baso % (Auto) 0.5, Absolute Neuts (auto) 5.1, Absolute Lymphs (auto) 1.12, Nucleated RBC % 0, Sodium 140, Potassium 4.5, Chloride 101, Carbon Dioxide 29.1, Anion Gap 10, BUN 12, Creatinine 0.86, Estim Creat Clear Calc 138.62, Est GFR (MDRD) Non-Af 103, BUN/Creatinine Ratio 13.8, G lucose 126 H, Calcium 9.2 12/21/24 07:04: POC Glucose 99 Radiography Diagnostic Testing: Radiology Impression Hand X-Ray 12/20/24 14:52 IMPRESSION: Severe soft tissue swelling. No significant bony abnormality Reading Location: [facility] Physical Exam Narrative Right upper Extremity Inspection: Dorsal hand swelling with superficial blistering, but greatly improved since yesterday. No streaking erythema. Palpation: No crepitus. Compartments of the forearm and the hand are all soft. No tenderness to palpation of the hand today. No tenderness to palpation with extension of the fingers. Motor: Able to bend and extend all MP, PIP, and DIP joints. He can now make a fist. Sensory: Intact to light touch on the radial and ulnar borders. Vascular: Finger tips are warm and well perfused with <2 second capillary refill. Assessment & Plan Assessment/Plan (1) Extravasation of intravenous contrast medium: (2) Swelling of right hand: PLAN: Plan Great improvement overnight with rest and elevation I am comfortable with him being discharged back to the rehab facility today with follow-up next week Patient will need bacitracin and Band-Aids as needed for excoriations from the superficial blistering, but there are no large wounds on the back of his hand today (I will monitor for development of any wounds). I would continue rest and elevation with the arm elevator at the rehab facility. Patient happy with the plan Charges/Coding Visit Charges Inpatient E&M: 32655 Subs Hosp L1
[2024-12-21 08:26] VITALS: BP 131/79; PULSE 73; RESP 16; TEMP 36.3; O2SAT 97
--- NOTE | 2024-12-21 08:36 | DCINST_ITS ---
Discharge Instructions DC O2, CPAP, BIPAP needs Home O2 Discharge instructions: No Dressing / Incision Discharge Activity: Return to Normal Activity Dressing / Incision Call your doctor if you observe: Fever of 101 or Higher, Shortness of breath, Dizziness, Fainting spells, Swelling in the ankles, Chest pain and Increased palpitations (irregular heartbeat) Follow Up Care Test Results: Test results from this visit will be discussed in further detail at your follow- up appointment, if applicable. Discharge Plan Admission Admit Date/Time: 12/20/24 17:52 Attending Provider: Farzad Camilo Primary Care Provider: Jhonatan Garcia Consulting Providers: Eliot Estrada; Yaz Dee Instructions Additional Instructions / Restrictions: Plastic surgery discharge instructions Continue elevation of the right upper extremity especially at night and when lying in bed for the next several days for the swelling to decrease Recommend bacitracin or Neosporin and Band-Aids for any skin excoriations on the dorsum of the right hand secondary to the blistering. Follow-up with me later this week in clinic Discharge Orders/Prescriptions Prescriptions: No Action hydrochlorothiazide 50 mg Tablet 50 mg PO DAILY amlodipine 5 mg Tablet 5 mg PO DAILY allopurinol 100 mg Tablet 100 mg PO DAILY omeprazole 40 mg Capsule,Delayed Release(Dr/Ec) 40 mg PO DAILY Xarelto 20 mg tablet 20 mg PO DAILY Qty: 30 0RF Rx Instructions: must administer with evening meal tramadol 50 mg tablet 50 mg PO Q8H PRN (Reason: pain) trazodone 100 mg tablet 100 mg PO QHS tizanidine 2 mg tablet 2 mg PO Q8H spironolactone 25 mg tablet 25 mg PO DAILY albuterol sulfate 2.5 mg /3 mL (0.083 %) solution for nebulization 2.5 mg inhalation Q6H Patient Comments: [NO ORIGINAL SIG] Rx Instructions: via nebulizer pravastatin 40 mg tablet 40 mg PO DAILY metoprolol succinate 100 mg tablet extended release 24 hr 100 mg PO BID dofetilide 250 mcg capsule 250 mcg PO BID potassium chloride 20 mEq tablet,ER particles/crystals 20 meq PO DAILY hydroxyzine pamoate 25 mg capsule 25 mg PO Q6H PRN (Reason: anxiety) Patient Comments: TAKE X14 DAYS END DATE IS 12/27/24 duloxetine 20 mg capsule,delayed release(DR/EC) 20 mg PO DAILY Nexletol 180 mg tablet 180 mg PO DAILY cetirizine 10 mg tablet 10 mg PO DAILY fluticasone propion-salmeterol [Advair Diskus] 100-50 mcg/dose blister with device 1 inh inhalation BID fluticasone propion-salmeterol [Advair Diskus] 100-50 mcg/dose blister with device 2 inh inhalation BID Trulicity 1.5 mg/0.5 mL pen injector 1.5 mg subcut .WEEKLY Patient Comments: patient takes on acetaminophen 325 mg capsule 650 mg PO Q4H PRN (Reason: fever or pain) Referrals / Follow Up: Jhonatan Garcia DO [Primary Care Provider] -
--- NOTE | 2024-12-21 08:45 | PCM.TXEXTCAR ---
Diet Diet Order/Speech Therapy: INPATIENT Hospital Diet / Speech Therapy Order(s) 12/20/24 22:28 Diet: Regular - General Food consistency:: Regular Liquid Consistency:: Regular/Thin Routine Orders/Code Status Routine Lab Work: CBC and BMP Code Status: Full Code DC O2, CPAP, BIPAP needs Home O2 Discharge instructions: No Wound(s) rt hand: Wound Type: blisters from IV infiltration with contrast Therapies Physical Therapy: Eval and Treat Occupational Therapy: Eval and Treat Problem/Diagnosis (1) Extravasation of intravenous contrast medium: Status: Acute Code(s): T80.818A - Extravasation of other vesicant agent, initial encounter (2) Swelling of right hand: Status: Acute Code(s): M79.89 - Other specified soft tissue disorders Allergies/Procedures Done in Hospital Allergies [id number] Reductase Inhibitor Allergy (Mild, Verified 12/20/24 13:07) Hives Procedures: None Type of Care/Length of Stay Estimated LOS: Convalescent Care Less Than 30 days Type of Care Needed: Skilled Rehab Potential: Good Prognosis: Good Additional Orders/Day of Discharge Day of Discharge: 12/21/24 Discharge Plan Admission Admit Date/Time: 12/20/24 17:52 Attending Provider: Farzad Camilo Primary Care Provider: Jhonatan Garcia Consulting Providers: Eliot Estrada; Yaz Dee Instructions Additional Instructions / Restrictions: Plastic surgery discharge instructions Continue elevation of the right upper extremity especially at night and when lying in bed for the next several days for the swelling to decrease Recommend bacitracin or Neosporin and Band-Aids for any skin excoriations on the dorsum of the right hand secondary to the blistering. Follow-up with me later this week in clinic Discharge Orders/Prescriptions Prescriptions: Continued hydrochlorothiazide 50 mg Tablet 50 mg PO DAILY amlodipine 5 mg Tablet 5 mg PO DAILY allopurinol 100 mg Tablet 100 mg PO DAILY omeprazole 40 mg Capsule,Delayed Release(Dr/Ec) 40 mg PO DAILY Xarelto 20 mg tablet 20 mg PO DAILY Qty: 30 0RF Rx Instructions: must administer with evening meal tramadol 50 mg tablet 50 mg PO Q8H PRN (Reason: pain) trazodone 100 mg tablet 100 mg PO QHS tizanidine 2 mg tablet 2 mg PO Q8H spironolactone 25 mg tablet 25 mg PO DAILY albuterol sulfate 2.5 mg /3 mL (0.083 %) solution for nebulization 2.5 mg inhalation Q6H Patient Comments: [NO ORIGINAL SIG] Rx Instructions: via nebulizer pravastatin 40 mg tablet 40 mg PO DAILY metoprolol succinate 100 mg tablet extended release 24 hr 100 mg PO BID dofetilide 250 mcg capsule 250 mcg PO BID potassium chloride 20 mEq tablet,ER particles/crystals 20 meq PO DAILY hydroxyzine pamoate 25 mg capsule 25 mg PO Q6H PRN (Reason: anxiety) Patient Comments: TAKE X14 DAYS END DATE IS 12/27/24 duloxetine 20 mg capsule,delayed release(DR/EC) 20 mg PO DAILY Nexletol 180 mg tablet 180 mg PO DAILY cetirizine 10 mg tablet 10 mg PO DAILY fluticasone propion-salmeterol [Advair Diskus] 100-50 mcg/dose blister with device 1 inh inhalation BID fluticasone propion-salmeterol [Advair Diskus] 100-50 mcg/dose blister with device 2 inh inhalation BID Trulicity 1.5 mg/0.5 mL pen injector 1.5 mg subcut .WEEKLY Patient Comments: patient takes on acetaminophen 325 mg capsule 650 mg PO Q4H PRN (Reason: fever or pain) Referrals / Follow Up: Jhonatan Garcia DO [Primary Care Provider] - Disposition Disposition (needs filled in before D/C Order can be placed): Longterm Facility
--- NOTE | 2024-12-21 09:02 | CASEMGMT ---
Social Work Pt did inform MARILYN yesterday his plan is to return to [facility]. Pt was already discharged. MARILYN sent updates in [facility] to see if pt can return today. MARILYN will await response. MS3 aware to wait to hear from MARILYN. MARCIE Saab
[2024-12-21] MEDS: Potassium Chloride Oral Tablet 20 MEQ PO (09:18)
[2024-12-21 09:20] VITALS: PULSE 73
[2024-12-21] MEDS: Metoprolol(XL)Succ 100 MG Tablet PO (09:20)
--- NOTE | 2024-12-21 11:21 | CASEMGMT ---
Social Work Pt has already been discharged, [facility] has said they can take pt back. SW completed green sheet and gave this along w/transport form to corporation secretary for discharge. MARCIE Saab
--- NOTE | 2024-12-21 11:34 | PCM.DC.SUM ---
Providers Date of Admission: 12/20/24 Primary Care Physician: Dr. Jhonatan Garcia, Consultations 12/20/24 22:28 Consult: Plastic Surgery Routine Consulting Provider: Eliot Estrada Reason for Consult: Right hand pain and swelling EMERGENT Consult: No MD Notified: Yes Date Notified: 12/20/24 Time Notified: 18:28 Method of Notification: ED Physician Initiated Reason For Visit: RIGHT ARM SWELLING AND ERYTHEMA AFTER CONTRAST Diagnosis Discharge Diagnosis (1) Extravasation of intravenous contrast medium: Status: Acute Code(s): T80.818A - Extravasation of other vesicant agent, initial encounter (2) Swelling of right hand: Status: Acute Code(s): M79.89 - Other specified soft tissue disorders Medications at Discharge Home Medications allopurinol 100 mg tablet 100 mg PO DAILY 10/23/22 amlodipine 5 mg tablet 5 mg PO DAILY 10/23/22 hydrochlorothiazide 50 mg tablet 50 mg PO DAILY 10/23/22 omeprazole 40 mg capsule,delayed release 40 mg PO DAILY 10/23/22 rivaroxaban 20 mg tablet (Xarelto) 20 mg PO DAILY #30 tabs 10/23/22 albuterol sulfate 2.5 mg/3 mL (0.083 %) solution for nebulization 2.5 mg inhalation Q6H 12/19/24 bempedoic acid 180 mg tablet (Nexletol) 180 mg PO DAILY 12/19/24 dofetilide 250 mcg capsule 250 mcg PO BID 12/19/24 duloxetine 20 mg capsule,delayed release 20 mg PO DAILY 12/19/24 hydroxyzine pamoate 25 mg capsule 25 mg PO Q6H PRN anxiety 12/19/24 metoprolol succinate 100 mg tablet,extended release 24 hr 100 mg PO BID 12/19/24 potassium chloride 20 mEq tablet,extended release(part/cryst) 20 meq PO DAILY 12/19/24 pravastatin 40 mg tablet 40 mg PO DAILY 12/19/24 spironolactone 25 mg tablet 25 mg PO DAILY 12/19/24 tizanidine 2 mg tablet 2 mg PO Q8H 12/19/24 tramadol 50 mg tablet 50 mg PO Q8H PRN pain 12/19/24 trazodone 100 mg tablet 100 mg PO QHS 12/19/24 acetaminophen 325 mg capsule 650 mg PO Q4H PRN fever or pain 12/20/24 cetirizine 10 mg tablet 10 mg PO DAILY 12/20/24 dulaglutide 1.5 mg/0.5 mL subcutaneous pen injector (Trulicity) 1.5 mg subcut .WEEKLY 12/20/24 fluticasone 100 mcg-salmeterol 50 mcg/dose blistr powdr for inhalation (Advair Diskus) 1 inh inhalation BID 12/20/24 fluticasone 100 mcg-salmeterol 50 mcg/dose blistr powdr for inhalation (Advair Diskus) 2 inh inhalation BID 12/20/24 Hospital Course Operations None Procedures None Summary of Care Provided Minutes Spent on Discharge: 31 Hospital Course: Per HPI: SOCORRO KELLEY, is [id number] male history of hypertension, gout, cardiomyopathy, GERD, diabetes, depression and anxiety, KOFFI who presented [facility] ED 12/20/2024 for right hand pain, swelling, itching that started yesterday when he was in the ED for a CT scan of the chest with IV contrast. The contrast infiltrated out of the IV so he had an IV placed in his left hand and then got the IV contrasted study. No symptoms in left hand at all. Re-presented today due to increased swelling and redness all the way up right upper arm. In the ED temp 98.6, heart rate 72 and blood pressure 145/88, respiratory 18 pulse ox 99% on room air. CBC and BMP fairly benign, hand x-ray with severe soft tissue swelling. Plastic surgery was contacted in the ED and evaluated, recommended admission for observation with aggressive elevation. Hospitalist contacted for admission. Patient evaluated at bedside. Patient reports history as above with the swelling developing since yesterday, patient has difficulty moving hand due to the swelling more so than the pain. Denies fever, reports his right foot/ankle gets little bit irritated due to the fixator that is due to come off January 01 but no other new or acute complaints Hospital Course: 1. Right hand swelling after contrast extravasation and IV infiltration?54-year-old male with a recent ankle fracture who was at a nursing facility presented to the hospital for a CT scan and at that time the IV infiltrated and there was contrast extravasation. He developed blistering and swelling of his right hand so presented to the hospital. Plastic surgery was consulted in the ER and recommended overnight observation. This morning per plastic surgery the hand looks much better so he recommends bacitracin ointment. No leukocytosis or fever. Plan will be to return to SNF today and he was stable for discharge from plastic surgery's perspective. 2. Recent ankle fracture, gout, essential hypertension, depression, anxiety, paroxysmal A-fib, chronic heart failure unknown type are all chronic medical conditions which complicate his care. His home medications were continued where appropriate Physical Exam Narrative General: Alert, Oriented x3, Cooperative, No apparent distress HEENT: Atraumatic, PERRLA, EOMI, Normocephalic Oral: Moist Mucosa Neck: Supple, No JVD Lungs: Diminished, Normal air movement, No rhonchi, No wheeze, No rales Cardiovascular: Regular rate, Regular Rhythm, Normal S1, Normal S2, No murmurs Abdomen: Soft, Non Tender, Non-Distended, No Hepato-splenomegaly Extremities: No edema, Capillary Refill Less than 3 Seconds, right foot Ex-Fix in his left foot is in a boot Skin: Blisters on the dorsal aspect of his right hand and wrist Musculoskeletal: No Tenderness to Palpation of Joints or Extremities Neurological: No focal neurological deficits, Motor Exam 5/5 strength throughout, Sensory exam intact to light touch and pain Psych/Mental Status: Normal Affect, Appropriate Weight / BMI Weight Weight: 309 lb 15.519 oz Body Mass Index (BMI) 45.8 ABG / Lab / Microbiology Data 12/21/24 03:42 12/21/24 03:42 Laboratory: Laboratory Results - last 24 hr 12/20/24 15:04: WBC 8.4, RBC 5.31, Hgb 14.3, Hct 46.2, MCV 87.0, MCH 26.9 L, MCHC 31.0 L, RDW Std Deviation 44.4 H, RDW Coeff of Tee 13.9, Plt Count 198, MPV 9.8, Immature Gran % (Auto) 0.400, Neut % (Auto) 76.3 H, Lymph % (Auto) 10.6 L, [place] % (Auto) 10.6 H, Eos % (Auto) 1.6, Baso % (Auto) 0.5, Absolute Neuts (auto) 6.4, Absolute Lymphs (auto) 0.89, Nucleated RBC % 0, Sodium 134, Potassium 4.2, Chloride 98, Carbon Dioxide 26.7, Anion Gap 10, BUN 12, Creatinine 0.94, Estim Creat Clear Calc 128.93, Est GFR (MDRD) Non-Af 97, BUN/Creatinine Ratio 12.3, Glucose 121 H, Calcium 9.2 12/20/24 23:19: POC Glucose 222 H 12/21/24 03:42: WBC 7.4, RBC 5.23, Hgb 14.2, Hct 45.3, MCV 86.6, MCH 27.2, MCHC 31.3 L, RDW Std Deviation 43.9, RDW Coeff of Tee 13.8, Plt Count 191, MPV 9.8, Immature Gran % (Auto) 0.300, Neut % (Auto) 68.8, Lymph % (Auto) 15.1 L, [place] % (Auto) 13.4 H, Eos % (Auto) 1.9, Baso % (Auto) 0.5, Absolute Neuts (auto) 5.1, Absolute Lymphs (auto) 1.12, Nucleated RBC % 0, Sodium 140, Potassium 4.5, Chloride 101, Carbon Dioxide 29.1, Anion Gap 10, BUN 12, Creatinine 0.86, Estim Creat Clear Calc 138.62, Est GFR (MDRD) Non-Af 103, BUN/Creatinine Ratio 13.8, Glucose 126 H, Calcium 9.2 12/21/24 07:04: POC Glucose 99 12/21/24 11:03: POC Glucose 171 H Radiography Diagnostic Testing: Radiology Impression Hand X-Ray 12/20/24 14:52 IMPRESSION: Severe soft tissue swelling. No significant bony abnormality Reading Location: [id number] D/C Instructions DC O2, CPAP, BIPAP Needs Home O2 Discharge instructions: No Meaningful Use Info Meaningful Use Meaningful Use Diagnoses (Choose all that apply): None applicable Discharge Plan Admission Admit Date/Time: 12/20/24 17:52 Attending Provider: Farzad Camilo Primary Care Provider: Jhonatan Garcia Consulting Providers: Eliot Estrada; Yaz Dee Instructions Additional Instructions / Restrictions: Plastic surgery discharge instructions Continue elevation of the right upper extremity especially at night and when lying in bed for the next several days for the swelling to decrease Recommend bacitracin or Neosporin and Band-Aids for any skin excoriations on the dorsum of the right hand secondary to the blistering. Follow-up with me later this week in clinic Discharge Orders/Prescriptions Prescriptions: Continued hydrochlorothiazide 50 mg Tablet 50 mg PO DAILY amlodipine 5 mg Tablet 5 mg PO DAILY allopurinol 100 mg Tablet 100 mg PO DAILY omeprazole 40 mg Capsule,Delayed Release(Dr/Ec) 40 mg PO DAILY Xarelto 20 mg tablet 20 mg PO DAILY Qty: 30 0RF Rx Instructions: must administer with evening meal tramadol 50 mg tablet 50 mg PO Q8H PRN (Reason: pain) trazodone 100 mg tablet 100 mg PO QHS tizanidine 2 mg tablet 2 mg PO Q8H spironolactone 25 mg tablet 25 mg PO DAILY albuterol sulfate 2.5 mg /3 mL (0.083 %) solution for nebulization 2.5 mg inhalation Q6H Patient Comments: [NO ORIGINAL SIG] Rx Instructions: via nebulizer pravastatin 40 mg tablet 40 mg PO DAILY metoprolol succinate 100 mg tablet extended release 24 hr 100 mg PO BID dofetilide 250 mcg capsule 250 mcg PO BID potassium chloride 20 mEq tablet,ER particles/crystals 20 meq PO DAILY hydroxyzine pamoate 25 mg capsule 25 mg PO Q6H PRN (Reason: anxiety) Patient Comments: TAKE X14 DAYS END DATE IS 12/27/24 duloxetine 20 mg capsule,delayed release(DR/EC) 20 mg PO DAILY Nexletol 180 mg tablet 180 mg PO DAILY cetirizine 10 mg tablet 10 mg PO DAILY fluticasone propion-salmeterol [Advair Diskus] 100-50 mcg/dose blister with device 1 inh inhalation BID fluticasone propion-salmeterol [Advair Diskus] 100-50 mcg/dose blister with device 2 inh inhalation BID Trulicity 1.5 mg/0.5 mL pen injector 1.5 mg subcut .WEEKLY Patient Comments: patient takes on acetaminophen 325 mg capsule 650 mg PO Q4H PRN (Reason: fever or pain) Referrals / Follow Up: Jhonatan Garcia DO [Primary Care Provider] - Disposition Disposition (needs filled in before D/C Order can be placed): [facility] Charges/Coding Visit Charges Inpatient E&M: 55590 Disch Hosp >30min
[2024-12-21 12:18] VITALS: BP 137/76; PULSE 70; RESP 16; TEMP 36.6; O2SAT 98
== END 2024-12-21 13:02 | disposition skilled nursing facility (03) ==
LOC: ED 16:08 → MS3 18:15
PROVIDERS: Admitting Provider Internal Medicine; Emergency Provider Emergency Medicine; Visit Provider Family Medicine
DX: T80.818A Extravasation of other vesicant agent, initial encounter (principal); I11.0 Hypertensive heart disease with heart failure; I50.9 Heart failure, unspecified; J44.89 Other specified chronic obstructive pulmonary disease; I48.0 Paroxysmal atrial fibrillation; I42.9 Cardiomyopathy, unspecified; E11.9 Type 2 diabetes mellitus without complications; S82.891D Other fracture of right lower leg, subsequent encounter for closed fracture with routine healing; Z79.899 Other long term (current) drug therapy; Z87.891 Personal history of nicotine dependence; Z79.01 Long term (current) use of anticoagulants; M10.9 Gout, unspecified; K21.9 Gastro-esophageal reflux disease without esophagitis; Z79.51 Long term (current) use of inhaled steroids; F41.8 Other specified anxiety disorders; G47.00 Insomnia, unspecified; Z79.85 Long-term (current) use of injectable non-insulin antidiabetic drugs; Z79.84 Long term (current) use of oral hypoglycemic drugs; E78.5 Hyperlipidemia, unspecified; G47.33 Obstructive sleep apnea (adult) (pediatric); X58.XXXD Exposure to other specified factors, subsequent encounter
CPT/HCPCS: 36415; 73130; 80048; 82962; 85025; 94640; 96374; 99221; 99252; 99285; A4216; G0378; G0463

== ENCOUNTER 2024-12-27 23:17 | Observation (INO) | payer MEDICAID, SELFPAY ==
[2024-12-27 23:19] VITALS: BP 127/96; PULSE 149; RESP 19; TEMP 37.7; O2SAT 91; O2SAT 93; BMI 46.7
[2024-12-27 23:22] VITALS: BP 127/96; PULSE 138; RESP 20; TEMP 37.7; O2SAT 93
[2024-12-27 23:24] VITALS: O2SAT 94
--- NOTE | 2024-12-27 23:35 | EKG12_ITS ---
Test Reason : DYSRHYTHMIA Blood Pressure : */* mmHG Vent. Rate : 152 BPM Atrial Rate : * BPM P-R Int : * ms QRS Dur : 86 ms QT Int : 312 ms P-R-T Axes : * -50 0 degrees QTcB Int : 496 ms Critical Test Result: High HR Atrial fibrillation with rapid ventricular response Left axis deviation Abnormal ECG Confirmed by ANNE-MARIE PETTIT, CONCETTA ([id number]), associate entertainment editor ELIEZER CELIS ([id number]) on 12/31/2024 7:49:06 AM Referred By: GEM Confirmed By: CONCETTA XIE MD
--- NOTE | 2024-12-27 23:40 | RAD_ITS ---
PROCEDURE: CHEST 1 VIEW (PORTABLE) 12/27/2024 REASON FOR EXAM: SOB TECHNIQUE: Frontal view of the chest. COMPARISON: 12/19/2024 FINDINGS: Devices: Right upper extremity PICC with catheter tip at the superior cavoatrial junction. Lungs/Pleura: Clear. No pneumothorax or pleural effusion. Heart/Mediastinum: Mild cardiomegaly. Bones/Soft tissues: Within normal limits. RAD/Chest 1 View (Portable) IMPRESSION: No acute cardiopulmonary disease. Reading Location: [id number]
--- OUTSIDE RECORDS SUMMARY | 2024-12-27 23:43 | XMS RPT_ITS | CCD ---
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 Name Role Phone Zacarias Cohn Referring Unavailable Zacarias Cohn Primary Care Unavailable STRESS TESTS, INV CARD Attending Unavailab Gem Gunter Attending Unavailable ZACARIAS COHN Referring Unavailable COHN, ZACARIAS Primary Care Unavailable STRESS TESTS, INV CARD Attending Unavailab ZACARIAS Hawley Referring Unavailable COHN, ZACARIAS Primary Care Unavailable COHN, ZACARIAS Primary Care Unavailable Gem Barr Attending Unavailable ZACARIAS COHN Referring Unavailable Melissa Ayala Attending Unavailable PHYSICIAN, NONE Primary Care Physician Unavailab ZACARIAS Hawley Attending Unavailable COHN, ZACARIAS Primary Care Unavailable COHN, ZACARIAS Primary Care Unavailable KIM MEJIA Attending Unavailable ZACARIAS COHN Attending Unavailable SELF, REFERRAL Referring Unavailable COHN, ZACARIAS Primary Care Unavailable GIRMA HYLTON Primary Care Physician Kristin JAMISON, Roxane [...] Primary Care Unavailable GIRMA CORREA Attending [facility]available [facility] Attending Unavailable [facility] Unavailable DEMI HUSTON MD Attending Unavailable [place], [place] Primary Care Unavailable DEMI HUSTON MD Attending Unavailable [place], [place] Primary Care Unavailable SAMY JONES Attending Unavailable [facility] Unavailable CINDY HERNANDEZ MD Consulting Unavailable EDWARDO PETTIT, DR LEVIN Attending Unavailabl e [place], [place] Primary Care Un[facility] Unavailable ANY ISREAL STONEA D Attending Unavailable [place], [place] Primary Care Unavailable ANY DO SLOANE D Attending Unavailable [facility] Admitting Unavailable [facility] Attending Unavailable [facility] Un[facility] Care Unavailable KAVYA INSTRUMENT DESIGNER-SUPERVISING FIRE MARSHALJONNY Attending U JAKE Ring Attending Unavailable JAKE MAXWELL Primary Care Unavailable JAKE MAXWELL Admitting Unavailable [place] INSTRUMENT DESIGNER-SUPERVISING FIRE MARSHAL, [place] Primary Care Unavail able DELORES MURO DO Attending Unavailable MANSOOR PETTIT, DR SONNY Woods Consulting Unavailable AMANDA STONE, CIRILO Attending Unavailable [place] INSTRUMENT DESIGNER-SUPERVISING FI[employer] MARSHAL, [place] Primary Care Unavail able JEREMIE MCCORMACK MD Attending Unavailable [place] INSTRUMENT DESIGNER-SUPERVISING [employer], [place] Primary Care Unavail able DR WILNER JOE MD Attending Unavailabl e [place] INSTRUMENT DESIGNER-SUPERVISING [employer], [place] Primary Care Unavail able [place] INSTRUMENT DESIGNER-SUPERVISING [employer], [place] Primary Care Unavail able CIRILO PATEL DO Attending Unavailable DR SAMY JONES MD, V Attending Unavai CINDY Vela MD Consulting Unavailable [place] INSTRUMENT DESIGNER-[employer]PERVISING [employer], [place] Primary Care Unavail able DELORES MURO DO Admitting Unavailable DR ANGEL GARCES DO Attending Unavailable [place] INSTRUMENT DESIGNER-SUPERVISING [employer], [place] Primary Care Unavail able [place] INSTRUMENT DESIGNER-SUPERVISING [employer], [place] Primary Care Unavail able [place] INSTRUMENT DESIGNER-SUPERVISING [employer], [place] Attending Unavail able [place] INSTRUMENT DESIGNER-SUPERVISING [employer], [place] Primary Care Unavail able FARZANA INSTRUMENT DESIGNER-SUPERVISING FIRE MARSHALHELEN Attending Unava ilable [place] INSTRUMENT DESIGNER-SUPERVISING FIRE MARSHAL, [place] Primary Care Unavail able [place] INSTRUMENT DESIGNER-SUPERVISING FIRE MARSHAL, GIRMA Attending Unavail able [place] INSTRUMENT DESIGNER-SUPERVISING FI[employer]SH[employer], [place] Primary Care Unavail able [place] INSTRUMENT DESIGNER-SUPERVISING FIRE MARSHAL, GIRMA Attending Unavail able [place] INSTRUMENT DESIGNER-SUPERVISING FIRE MARSHAL, [place] Primary Care Unavail able [place] INSTRUMENT DESIGNER-SUPERVISING FI[employer] MARSHAL, GIRMA Attending Unavail able [place] INSTRUMENT DESIGNER-SUPERVISING [employer]SH[employer], [place] Primary Care Unavail able [place] INSTRUMENT DESIGNER-SUPERVISING FIRE MARSHAL, GIRMA Attending Unavail able [place] INSTRUMENT DESIGNER-SUPERVISING FIRE MARSHAL, [place] Primary Care Unavail able [place] INSTRUMENT DESIGNER-SUPERVISING FIRE MARSHAL, GIRMA Attending Unavail able [place] POURER-C, [place] Primary Care Provider [phone] Jamila PETTIT, Dr. Alberto Attending Provider Unavailryley Marino MD, Dr. Alberto Referring Provider Unavailryley Tavera, Dr. Adrian Emergency Provider Jose STONE, Dr. Israel Primary Care Provider [phone] Ayan PETTIT, Dr. Arboleda Emergency Provider Natalie PETTIT, Dr. Mccabe Attending Provider Luiz PETTIT, Dr. Mukherjee Admit Provider Luiz PETTIT, Dr. Mukherjee Attending Provider Luiz PETTIT, Dr. Mukherjee Other Provider Natalie PETTIT, Dr. Mccabe Other Provider Ton PETTIT, Dr. Farzad Aden Attending Provider Ton PETTIT, Dr. Farzad Aden Other Provider Yaz Dee Admitting Unavailable Austin Estrada Consulting Unavailable Jhonatan Garcia [facility] Care Unavailable Farzad Camilo Attending Unavailable Yaz Dee Consulting Unavailable Yaz Dee Consulting Unavailable Yaz Dee Attending Unavailable [facility] Unavailable Yaz Dee Admitting Unavailable Gudla AICHA, Dolly Attending Unavailable [place] POURER, [facility] Care Unavailable [place] POURER, [facility] Care Unavailable Gudla OLS, Dolly Attending Unavailable Gudla OLS, Dolly Referring Unavailable [place] POURER, [facility] Care Unavailable Gudla OLS, Dolly Attending Unavailable Gudla OLS, Dolly Attending Unavailable [place] POURER, [facility] Care Unavailable Gudla OLSLucianDolly Attending Unavailable Gudla OLS, Dolly Referring Unavailable [place] POURER, [facility] Care Unavailable Siska, Austin Consulting Unavailable Austin Estrada Attending Unavailable Farzad Camilo Consulting Unavailable Farzad Camilo Attending Unavailable Austin Estrada Attending Unavailable Jose Jhonatan [facility] Unavailable Nguyễn Al Attending Unavailable [facility] Unavailable [place] INSTRUMENT DESIGNER-SUPERVISING FIRE MARSHAL, [facility] Unavail able KORPI DO, NANI Admitting Unavailable KORPI DO NANI Attending Unavailable LUPE STONE, DR ORTIZ Consulting Unavailable CORRY DO, CHANTAL S Consulting Unavailable MELISSA MARIN MD Consulting Unavailable HOSPITALISTLARRY Consulting Unavailable NATALY PETTIT, BRENNON Attending Unavailable CINDY HERNANDEZ MD Admitting Unavailable [place] INSTRUMENT DESIGNER-[facility], [facility] Unavail able ZOHREH LEON MD, HELENA Consulting Unavailable ALIZE PETTIT, DR UPTON Consulting Unavailable CINDY HERNANDEZ MD Consulting Unavailable NADIR PETTIT, DR JONES Admitting Unavailab le [facility] INSTRUMENT DESIGNER[facility] Unavail able MOY WATTS MD Attending U JANAE Deras MD Consulting Unavailable ARIEL ZIMMER MD Consulting Unavailable MANSOOR PETTIT, DR SONNY Woods Admitting Unavailable [place] INSTRUMENT DESIGNER-SUPERVISING FIRE MARSHAL, [facility] Unavail able KORPI DO, NANI Consulting Unavailable MAXIME COLLINS DO Attending Unavailable TE CASEY MD Consulting Unavailable NATHANIEL PETTIT FACP, DELORES Ashton Consulting Unavail able LUIS PETTIT, DR GUAJARDO Consulting Unavailab herberth MARTIN MD, DR MAYRA ROBINS Consulting Unavaila ble [place] INSTRUMENT DESIGNER-SUPERVISING FIRE MARSHAL, [facility] Unavail able PERNELL DEWITT MD Attending Unavailable ISABEL GOODSON MD, DR MAYRA ROBINS Consulting Unavaila jacob MAX MD, DR SONNY Woods Admitting Unavailable LASKOVSKI DO, SHAYLEE Consulting Unavailabl e BOOK SEWING MACHINE OPERATOR DO, ANA LUISA Consulting Unavailable TE CASEY MD Consulting Unavailable CORRY DO, CHANTAL S Consulting Unavailable Zaina Rounding NurseTomer Unavailable Leo Tavera, Dr. Adrian Attending Provider Allergies Allergy Classification Reported Allergen(s) Allergy Type Date of Onset Reaction(s) Facility (9 sources) HMG-CoA reductase inhibitor; 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: [statins] Propensity to adverse reactions to drug myalgia [facility] (4 sources) Wowkcps-Ftt-Dwb Reductase Inhibitor Allergy to substance 5 [facility] (1 source) Hjijiki-Dwt-Gog Reductase Inhibitor Drug allergy (disorder) 5 [facility] (1 source) Contrast media; 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: [iodinated radiocontrast agents] Drug allergy [facility] Medications Current Medications Medication Drug Class(es) Dates Sig (Normalized) Sig (Original) acetaminophen 325 mg oral capsule (15 sources) Start: 12-20-2024 take 2 capsules by mouth every four hours as needed for pain Acetaminophen 325 mg capsule Active 650 mg PO Q4H as needed for fever or pain December 20, 2024 12:00am Start: 11-07-2023 take 1 dose by mouth [...] every six hours as needed for pain [place] 325- 5 mg oral tablet Dose = 1 tab(s), Oral, q6h, PRN As needed for severe pain, X 3 day(s), # 12 tab(s), 0 Refill(s), Contusion of rib on right side, 144.4 Start Date: 05/05/23 Stop Date: 05/08/23 Status: Ordered Start: 07-15-2022 End: 07-17-2022 take 1 tablet by mouth every six hours as needed for pain [place] 325- 5 mg oral tablet Dose = 1 tab(s), Oral, q6h, PRN for pain, X 2 day(s), # 8 tab(s), 0 Refill(s), Acute periapical abscess Odontalgia, 148.6 Start Date: 07/15/22 Stop Date: 07/17/22 Status: Ordered acetaminophen 325 mg / oxyCODONE hydrochloride 5 mg oral tablet (2 sources) Opioid Agonist Start: 12-24-2024 End: 12-31-2024 take 1 tablet by mouth every six hours as needed for pain Percocet 5 mg-325 mg oral tablet Dose = 1 tab(s), Oral, q6h, PRN for pain, X 7 day(s), # 28 tab(s), 0 Refill(s), Pharmacy: [facility]/pharmacy #[id number], Postoperative pain, 175, cm, 12/24/24 0:46:00 EDT, Height, 140, kg, 12/24/24 0:46:00 EDT, Dosing Weight Start Date: 12/24/24 Stop Date: 12/31/24 Status: Ordered Quantity: 28.0 Unit: tab(s) Repeat number: 1 Indications: Other acute postprocedural pain; Start: 10-17-2024 End: 10-24-2024 take 1 tablet by mouth every six hours Percocet 5 mg-325 mg oral tablet Dose = 1 tab(s), Oral, q6hr, X 7 day(s), # 28 tab(s), 0 Refill(s), Pharmacy: [facility]/pharmacy #[id number], Post-op pain, 177.8, cm, 10/17/24 1:29:00 EDT, Height, 142, kg, 10/17/24 1:29:00 EDT, Dosing Weight Start Date: 10/17/24 Stop Date: 10/24/24 Status: Ordered Quantity: 28.0 Unit: tab(s) Repeat number: 1 Indications: Other acute postprocedural pain; Advair Diskus 100 mcg-50 mcg/inh inhalation powder (1 source) Start: 12-23-2024 take 1 dose by inhalation twice daily Advair Diskus 100 mcg-50 mcg/inh inhalation powder Dose = 1 inh, Inhalation, BID, 0 Refill(s) Start Date: 12/23/24 Status: Ordered Repeat number: 1 albuterol 0.83 mg/ml inhalation solution (12 sources) beta2-Adrenerg ic Agonist Start: 12-19-2024 take 2.5 mg by inhalation every six hours Albuterol Sulfate 2.5 mg /3 mL (0.083 %) solution for nebulization Active 2.5 mg INHALATION EVERY 6 HOURS December 19, 2024 12:00am via nebulizer Start: 12-19-2024 Albuterol Sulf ate 2.5 mg /3 mL (0.083 %) solution for nebulization Active mg December 19, 2024 12:00am Start: 08-27-2024 take 1 dose by inhal ation every six hours albuterol 2.5 mg/3 mL (0.083%) inhalation solution Dose : 2.5 mg = 3 mL, Inhalation, q6h, # 120 EA, 0 Refill(s), Pharmacy: [facility]/pharmacy #[id number], 176, cm, 08/27/24 14:57:00 EDT, Height, kg, 08/27/24 14:57:00 EDT, Dosing Weight Start Date: 08/27/24 Status: Ordered Quantity: 120.0 Unit: EA Repeat number: 1 allopurinol 100 mg oral tablet (20 sources) Xanthine Oxidase Inhibitor Start: 10-23-2022 End: 02-06-2023 allopurinol 100 mg oral tablet Dose : 100 mg = 1 tab(s), Oral, qDay, # 90 tab(s), 3 Refill(s), Pharmacy: [facility], 177.8, cm, 11/28/23 13:54:00 EDT, Height, kg, 11/28/23 13:54:00 EDT, Dosing Weight Start Date: 12/12/23 Status: Ordered Quantity: 90.0 Unit: tab(s) Repeat number: 4 Start: 07-11-2022 take 1 dose by mouth once anjum y allopurinol Dose : 500 mg =, Oral, qDay Start Date: 07/11/22 Status: Ordered aluminum hydroxide 40 mg/ml / magnesium hydroxide 40 mg/ml / simethicone 4 mg/ml oral suspension (1 source) Start: 12-23-2024 take 1 dose by mouth every four hours as needed Al hydroxide/Mg hydroxide/simethicone 200 mg-200 mg-20 mg/5 mL oral suspension Dose = 30 mL, Oral, q4h, PRN GI distress, 0 Refill(s) Start Date: 12/23/24 Status: Ordered Repeat number: 1 amLODIPine 5 mg oral tablet (10 sources) Dihydropyridine Calcium Channel Kp Start: 10-23-2022 amLODIPine 5 mg oral tablet Dose : 5 mg = 1 tab(s), Oral, qAM, 0 Refill(s) Start Date: 12/23/24 Status: Ordered Repeat number: 1 atorvastatin 40 mg oral tablet (3 sources) HMG-CoA Reductase Inhibitor Start: 08-09-2023 atorvastatin 40 mg oral tablet Dose : 40 mg = 1 tab(s), Oral, Daily, # 100 tab(s), 3 Refill(s), [facility]: [facility][id number], 178.5, cm, 08/08/23 13:32:00 EDT, Height, kg, 08/08/23 13:32:00 EDT, Dosing Weight Start Date: 08/09/23 Status: Ordered bempedoic acid 180 mg oral tablet (13 sources) Start: 05-14-2024 take 1 tablet by mouth once daily Bempedoic Acid (Nexletol) 180 mg tablet Active 180 mg PO DAILY December 19, 2024 12:00am benzonatate 100 mg oral capsule (6 sources) Non-narcotic Antitussive Start: 06-13-2023 End: 06-20-2023 Tessalon Perles 100 mg oral capsule Dose : 100 mg = 1 cap(s), Oral, TID, X 7 day(s), # 21 cap(s), 0 Refill(s), 06/20/23 1:02:00 AM EST Start Date: 06/13/23 Stop Date: 06/20/23 Status: Ordered Start: 02-12-2023 End: 12-20-2024 take 1 capsule by mouth three times daily as needed for cough Benzonatate 200 mg capsule Discontinued 200 mg PO THREE TIMES A DAY as needed for cough 20 February 12, 2023 12:00am December 20, 2024 4:10pm Blood Glucose Test Machine (6 sources) Start: 12-12-2023 Blood Glucose Test Machine See Instructions, Use glucometer daily as directed for blood sugar checks. Dispense insurance preferred device, # 1 EA, 0 Refill(s), [facility], 177.8, cm, 11/28/23 13:54:00 EDT, Height, 151.4, kg, 11/28/23 13:54:00 EDT, Dosing Weight Start Date: 12/12/23 Status: Ordered Quantity: 1.0 Unit: EA Repeat number: 1 Start: 12-12-2023 Blood Glucose Test Machine See Instructions, Use glucometer daily as directed for blood sugar checks. Dispense insurance preferred device, # 1 EA, 0 Refill(s), Pharmacy: [facility], 177.8, cm, 11/28/23 13:54:00 EDT, Height, 151.4, kg, 11/28/23 13:54:00 EDT, Dosing Weight Start Date: 12/12/23 Status: Ordered cephalexin 500 mg oral tablet (2 sources) Cephalosporin Antibacterial Start: 11-28-2024 End: 12-12-2024 cephalexin 500 mg oral tablet Dose : 500 mg = 1 tab(s), Oral, QID, X 14 day(s), # 56 tab(s), 0 Refill(s), 12/12/24 1:19:00 PM EDT, Pharmacy: [facility]/pharmacy #[id number], 177.8, cm, 11/24/24 11:36:00 EDT, Height, 132.4, kg, 11/28/24 5:38:00 EDT, Dosing Weight Start Date: 11/28/24 Stop Date: 12/12/24 Status: Ordered Quantity: 56.0 Unit: tab(s) Repeat number: 1 cetirizine hydrochloride 10 mg oral tablet (20 sources) Histamine-1 Receptor Antagonist Start: 12-20-2024 take 1 tablet by mouth once daily Cetirizine 10 mg tablet Active 10 mg PO DAILY December 20, 2024 12:00am Start: 08-08-2023 End: 12-06-2024 cetirizine 10 mg oral tablet Dose : 10 mg = 1 tab(s), Oral, Daily, # 90 tab(s), 3 Refill(s), Pharmacy: [facility], 177.8, cm, 11/28/23 13:54:00 EDT, [...] Status: Ordered dofetilide 0.25 mg oral capsule (20 sources) Antiarrhythmic Start: 12-19-2024 take 1 capsule by mouth twice daily Dofetilide 250 mcg capsule Active 250 ug PO TWICE A DAY December 19, 2024 12:00am Start: 10-04-2024 Tikosyn 250 mc g oral capsule Dose : 250 mcg = 1 cap(s), Oral, BID, # 180 cap(s), 4 Refill(s), Pharmacy: [facility]/pharmacy #[id number], 177.8, cm, 10/02/24 6:28:00 EDT, Height, kg, 10/02/24 6:28:00 EDT, Dosing Weight Start Date: 10/04/24 Status: Ordered Quantity: 180.0 Unit: cap(s) Repeat number: 5 Start: 09-24-2024 Tikosyn 250 mc g oral capsule Dose : 250 mcg = 1 cap(s), Oral, BID, # 180 cap(s), 1 Refill(s), Pharmacy: [facility]/pharmacy #[id number], 175, cm, 09/05/24 16:01:00 EDT, Height, kg, 09/05/24 16:01:00 EDT, Dosing Weight Start Date: 09/24/24 Status: Ordered Quantity: 180.0 Unit: cap(s) Repeat number: 2 Start: 12-12-2023 Tikosyn 250 mc g oral capsule Dose : 250 mcg = 1 cap(s), Oral, BID, # 180 cap(s), 3 Refill(s), Pharmacy: [facility]/pharmacy #[id number], 177.8, cm, 11/28/23 13:54:00 EDT, Height, kg, 11/28/23 13:54:00 EDT, Dosing Weight Start Date: 12/12/23 Status: Ordered Quantity: 180.0 Unit: cap(s) Repeat number: 4 Start: 06-09-2023 Tikosyn 250 mc g oral capsule Dose : 250 mcg = 1 cap(s), Oral, BID, # 60 cap(s), 2 Refill(s), [facility]: [facility] #[id number], 176, cm, 06/07/23 13:36:00 EST, Height, kg, 06/07/23 13:36:00 EST, Dosing Weight Start Date: 06/09/23 Status: Ordered 0.5 ml dulaglutide 3 mg/ml auto-injector (18 sources) GLP-1 Receptor Agonist Start: 04-15-2024 End: 10-02-2025 Dulaglutide (Trulicity) 1.5 mg/0.5 mL pen injector Active 1.5 mg SC .WEEKLY December 20, 2024 12:00am Start: 12-12-2023 End: 04-02-2024 inject 1 dose by subcutaneous injection every week Trulicity Pen 1.5 mg/0.5 mL subcutaneous solution Dose : 1.5 mg =, Subcutaneous, qWeek, sent in absence of PCP, # 4 EA, 3 Refill(s), Pharmacy: [facility], 177.8, cm, 11/28/23 13:54:00 EDT, Height, kg, 11/28/23 13:54:00 EDT, Dosing Weight Start Date: 12/12/23 Stop Date: 04/02/24 Status: Ordered Start: 08-21-2023 inject 0.5 mL by sub cutaneous injection every week Trulicity Pen 0.75 mg/0.5 mL subcutaneous solution Dose : 0.75 mg = 0.5 mL, Subcutaneous, qWeek, # 2.5 mL, 5 Refill(s), 0.5 mL/Pen, [facility]acy: [facility] #[id number], 177.8, cm, 08/09/23 21:07:00 EDT, Height, kg, 08/09/23 21:07:00 EDT, Dosing Weight Start Date: 08/21/23 Status: Ordered DULoxetine 20 mg delayed release oral capsule (12 sources) Serotonin and Norepinephrine Reuptake Inhibitor Start: 05-07-2025 take 1 capsule by mouth once daily Duloxetine 20 mg capsule,delayed release(DR/EC) Active 20 mg PO DAILY December 19, 2024 12:00am Fleet Enema 19 g-7 g/118 mL rectal enema (1 source) Start: 12-23-2024 take 1 dose rectal route once daily as needed for constipation Fleet Enema 19 g-7 g/118 mL rectal enema Dose = 1 EA, Rectal, qDay, PRN as needed for constipation, 0 Refill(s) Start Date: 12/23/24 Status: Ordered Repeat number: 1 FLUoxetine 10 mg oral capsule (16 sources) Serotonin Reuptake Inhibitor Start: 12-12-2023 FLUoxetine 20 mg oral capsule Dose : 20 mg = 1 cap(s), Oral, qDay, # 30 cap(s), 3 Refill(s), [facility]acy[facility], 177.8, cm, 11/28/23 13:54:00 EDT, Height, kg, 11/28/23 13:54:00 EDT, Dosing Weight Start Date: 12/12/23 Status: Ordered Start: 08-08-2023 End: 08-02-2024 FLUoxetine 10 mg oral capsul e Dose : 10 mg = 1 cap(s), Oral, qDay, # 30 cap(s), 0 Refill(s), [facility]acy: [facility], 175, cm, 05/14/24 13:59:00 EST, Height, kg, 05/14/24 13:57:00 EST, Dosing Weight Start Date: 05/14/24 Status: Ordered Quantity: 30.0 Unit: cap(s) Repeat number: 1 Start: 06-09-2023 FLUoxetine 10 mg oral capsule Dose : 10 mg = 1 cap(s), Oral, qDay, # 30 cap(s), 2 Refill(s), [facility]: [id number], 176, cm, 06/07/23 13:36:00 EST, Height, kg, 06/07/23 13:36:00 EST, Dosing Weight Start Date: 06/09/23 Status: Ordered Start: 01-31-2023 FLUoxetine 20 mg oral tablet Dose : 20 mg = 1 tab(s), Oral, qDay, # 90 tab(s), 3 Refill(s), [facility]: [facility] #[id number], 175.3, cm, 12/23/22 6:37:00 EDT, Height, kg, 12/23/22 6:38:00 EDT, Dosing Weight Start Date: 01/31/23 Status: Ordered Start: 12-13-2022 FLUoxetine 20 mg oral tablet Dose : 20 mg = 1 tab(s), Oral, qDay, # 30 tab(s), 3 Refill(s), [facility]: [facility] #[id number], 175.3, cm, 12/13/22 14:43:00 EDT, Height Start Date: 12/13/22 Status: Ordered Start: 11-08-2022 FLUoxetine 10 mg oral tablet Dose : 10 mg = 1 tab(s), Oral, qDay, # 30 tab(s), 2 Refill(s), [facility]: [facility] #[id number], 177, cm, 11/08/22 13:50:00 EDT, Height Start Date: 11/08/22 Status: Ordered 120 actuat fluticasone propionate 0.11 mg/actuat metered dose inhaler (3 sources) Corticosteroid Start: 08-08-2023 End: 08-02-2024 take 2 puff(s) by inhalation twice daily Flovent HFA 110 mcg/inh inhalation aerosol 2 puff(s), Inhalation, BID, # 3 EA, 3 Refill(s), [facility]acy: [facility] #[id number], 178.5, cm, 08/08/23 13:32:00 EDT, Height, kg, 08/08/23 13:32:00 EDT, Dosing Weight Start Date: 08/08/23 Stop Date: 08/02/24 Status: Ordered Fluticasone Propion-Salmetero l (6 sources) Corticosteroid, beta2-Adrenergic Agonist Start: 12-20-2024 Fluticasone Propion-Salmeter ol (Advair Diskus) 100-50 mcg/dose blister with device Active 1 NMA INHALATION TWICE A DAY December 20, 2024 12:00am Start: 12-20-2024 Fluticasone Pr opion-Salmeterol (Advair Diskus) 100-50 mcg/dose blister with device Active 2 NMA INHALATION TWICE A DAY December 20, 2024 12:00am furosemide 20 mg oral tablet (20 sources) Loop Diuretic Start: 12-12-2023 take 1 tablet by mouth in the morning, then take 0.5 tablet by mouth in the evening Lasix 40 mg oral tablet See Instructions, 1 tab in AM and 0.5 tab in PM, # 135 tab(s), 3 Refill(s), Pharmacy: [facility], 177.8, cm, 11/28/23 13:54:00 EDT, Height, kg, 11/28/23 13:54:00 EDT, Dosing Weight Start Date: 12/12/23 Status: Ordered Start: 08-08-2023 take 1 tablet by brandon th in the morning, then take 0.5 tablet by mouth in the evening Lasix 40 mg oral tablet See Instructions, 1 tab in AM and 0.5 tab in PM, # 135 tab(s), 3 Refill(s), [facility]: [facility] #[id number], 178.5, cm, 08/08/23 13:32:00 EDT, Height, kg, 08/08/23 13:32:00 EDT, Dosing Weight Start Date: 08/08/23 Status: Ordered Start: 11-14-2022 take 1 tablet by brandon th in the morning, then take 0.5 tablet by mouth in the evening Lasix 40 mg oral tablet See Instructions, 1 tab in AM and 0.5 tab in PM, # 135 tab(s), 0 Refill(s), [facility]: [facility] #[id number], 177, cm, 11/08/22 13:50:00 EDT, Height, kg, 11/08/22 13:50:00 EDT, Dosing Weight Start Date: 11/14/22 Status: Ordered Start: 10-23-2022 End: 12-20-2024 take 1 tablet by mouth once daily Furosemide (Lasix) 20 mg tablet Discontinued 20 mg PO DAILY 30 October 23, 2022 12:00am December 20, 2024 4:15pm glucagon (rdna) 1 mg injection (1 source) Antihypoglycemic Agent Start: 12-23-2024 inject 1 dose by intramuscular injection once as needed GlucaGen 1 mg injection Dose : 1 mg =, Intramuscular, Once, PRN Hypoglycemia, 0 Refill(s) Start Date: 12/23/24 Status: Ordered Repeat number: 1 Gluco-To-Go 40% oral gel (1 source) Start: 12-23-2024 take 1 dose by mouth once as needed Gluco-To-Go 40% oral gel 1 dose, Oral, Once, PRN as needed for low blood sugar, 0 Refill(s) Start Date: 12/23/24 Status: Ordered Repeat number: 1 guaiFENesin (1 source) Start: 12-23-2024 take 10 mL by mouth every four hours as needed for cough guaiFENesin 10 mL, Oral, q4h, PRN for cough/congestion, 0 Refill(s) Start Date: 12/23/24 Status: Ordered Repeat number: 1 hydroCHLOROthiazide 50 mg oral tablet (10 sources) Thiazide Diuretic Start: 07-11-2022 take 1 tablet by mouth once daily Hydrochlorothiazide 50 mg Tablet Active 50 mg PO DAILY October 23, 2022 12:00am hydrOXYzine pamoate 25 mg oral capsule (20 sources) Antihistamine Start: 08-27-2024 End: 12-25-2024 take 1 capsule by mouth every six hours as needed for anxiety Hydroxyzine Pamoate 25 mg capsule Active 25 mg PO EVERY 6 HOURS as needed for anxiety December 19, 2024 12:00am Start: 08-08-2023 End: 06-09-2024 Vistaril 25 mg oral capsule Dose : 25 mg = 1 cap(s), Oral, QID, PRN as needed for anxiety, X 30 day(s), # 120 cap(s), 5 Refill(s), 06/09/24 4:10:00 PM EST, Pharmacy: [facility], 177.8, cm, 11/28/23 13:54:00 EDT, [...] 3 Refill(s), 05/31/23 2:41:00 PM EST, Pharmacy: [facility] #[id number], 175.3, cm, 12/23/22 6:37:00 EDT, Height, kg, 12/23/22 6:38:00 EDT, Dosing Weight Start Date: 01/31/23 Stop Date: 05/31/23 Status: Ordered losartan potassium 100 mg oral tablet (2 sources) Angiotensin 2 Receptor Kp Start: 12-23-2022 losartan 100 mg oral tablet Dose : 100 mg = 1 tab(s), Oral, qDay, # 30 tab(s), 6 Refill(s), [facility]acy: [id number], 175.3, cm, 12/23/22 6:37:00 EDT, Height, kg, 12/23/22 6:38:00 EDT, Dosing Weight Start Date: 12/23/22 Status: Ordered metFORMIN hydrochloride 500 mg oral tablet (11 sources) Biguanide Start: 01-31-2023 MetFORMIN (Eqv-Fortamet) 500 mg oral tablet, EXTENDED RELEASE Dose : 500 mg = 1 tab(s), Oral, qDay, # 90 tab(s), 3 Refill(s), Pharmacy: [facility] #[id number], 175.3, cm, 12/23/22 6:37:00 EDT, Height, kg, 12/23/22 6:38:00 EDT, Dosing Weight Start Date: 01/31/23 Status: Ordered Start: 10-25-2022 MetFORMIN (Eqv -Fortamet) 500 mg oral tablet, EXTENDED RELEASE Dose : 500 mg = 1 tab(s), Oral, qDay, # 30 tab(s), 0 Refill(s) Start Date: 10/25/22 Status: Ordered Start: 10-23-2022 End: 12-20-2024 take 1 tablet by mouth once daily in the evening Metformin 500 mg Tablet Extended Release 24 Hr Discontinued 500 mg PO EVERY EVENING October 23, 2022 12:00am December 20, 2024 4:14pm Milk of Magnesia 8% oral suspension (1 source) Start: 12-23-2024 Milk of Magnes ia 8% oral suspension 2.4 gram(s) Dose = 30 mL, Oral, qHS, PRN as needed for constipation, 0 Refill(s) Start Date: 12/23/24 Status: Ordered Repeat number: 1 naproxen 250 mg oral tablet (3 sources) Nonsteroidal Anti-inflammatory Drug Start: 10-25-2022 naproxen 250 mg o ral tablet Dose : 250 mg = 1 [...] day(s), # 30 EA, 5 Refill(s), [facility]: [facility] #[id number], 177, cm, 11/08/22 13:50:00 EDT, Height Start Date: 11/08/22 Stop Date: 05/07/23 Status: Ordered nystatin 041032 unt/ml topical cream (1 source) Polyene Antifungal Start: 01-12-2024 End: 02-01-2024 nystatin 100,000 units/g topical cream Apply 1 frida, Topical, BID, X 10 day(s), # 30 gram(s), 1 Refill(s), Pharmacy: [facility]/pharmacy #[id number], Cream, 177, cm, 01/12/24 9:42:00 EDT, Height, 148.6, kg, 01/12/24 9:42:00 EDT, Dosing Weight Start Date: 01/12/24 Stop Date: 02/01/24 Status: Ordered omeprazole 40 mg delayed release oral capsule (20 sources) Proton Pump Inhibitor Start: 12-23-2024 omeprazole 40 mg oral delayed release capsule Dose : 40 mg = 1 cap(s), Oral, qAM, 0 Refill(s) Start Date: 12/23/24 Status: Ordered Repeat number: 1 Start: 09-19-2024 omeprazole 40 mg oral delayed release capsule Dose : 40 mg = 1 cap(s), Oral, BID, before a meal., # 180 cap(s), 0 Refill(s), Pharmacy: [facility]/pharmacy #[id number], 175, cm, 09/05/24 16:01:00 EDT, Height, kg, 09/05/24 16:01:00 EDT, Dosing Weight Start Date: 09/19/24 Status: Ordered Quantity: 180.0 Unit: cap(s) Repeat number: 1 Start: 10-23-2022 End: 05-14-2023 omeprazole 40 mg oral delaye d release capsule Dose : 40 mg = 1 cap(s), Oral, BID, before a meal., # 180 cap(s), 3 Refill(s), Pharmacy: [facility], 177.8, cm, 11/28/23 13:54:00 EDT, Height, kg, 11/28/23 13:54:00 EDT, Dosing Weight Start Date: 12/12/23 Status: Ordered Quantity: 180.0 Unit: cap(s) Repeat number: 4 penicillin v potassium 500 mg oral tablet (1 source) Start: 05-14-2024 End: 05-24-2024 penicillin V potassium 500 mg oral tablet Dose : 500 mg = 1 tab(s), Oral, q8h, X 10 day(s), # 30 tab(s), 0 Refill(s), 05/24/24 2:36:00 PM EST, Pharmacy: [facility]/pharmacy #[id number], 175, cm, 05/14/24 13:59:00 EST, Height, 143.9, kg, 05/14/24 13:57:00 EST, Dosing Weight Start Date: 05/14/24 Stop Date: 05/24/24 Status: Ordered Quantity: 30.0 Unit: tab(s) Repeat number: 1 polyethylene glycol 3350 with electrolytes oral powder for reconstitution (2 sources) Start: 02-15-2023 polyethylene g lycol 3350 with electrolytes oral powder for reconstitution See Instructions, As directed by provider at [facility] # 1 EA, 0 Refill(s), Pharmacy: [facility] #[id number], Colon cancer screening, 175.9, cm, 02/15/23 13:56:00 EDT, Height, kg, 02/15/23 13:56:00 EDT, Dosing Weight Start Date: 02/15/23 Status: Ordered microencapsulated potassium chloride 20 meq extended release oral tablet (20 sources) Start: 12-19-2024 take 1 tablet by mouth once daily Potassium Chloride 20 mEq tablet,ER particles/crystals Active 20 meq PO DAILY December 19, 2024 12:00am Start: 10-04-2024 Potassium Chlo ride (Eqv-K-Tab) 20 mEq oral tablet, extended release Dose : 20 mEq = 1 tab(s), Oral, qDay, Take with food, # 90 tab(s), 3 Refill(s), Pharmacy: [facility]/pharmacy #[id number], 177.8, cm, 10/02/24 6:28:00 EDT, Height, kg, 10/02/24 6:28:00 EDT, Dosing Weight Start Date: 10/04/24 Status: Ordered Quantity: 90.0 Unit: tab(s) Repeat number: 4 Start: 02-09-2024 Potassium Chlo ride (Eqv-K-Tab) 10 mEq oral tablet, extended release Dose : 10 mEq = 1 tab(s), Oral, qDay, # 30 tab(s), 3 Refill(s), Pharmacy: [facility]/pharmacy #[id number], 175, cm, 02/09/24 15:58:00 EDT, [...] Ordered pravastatin sodium 40 mg oral tablet (14 sources) HMG-CoA Reductase Inhibitor Start: 08-29-2024 take 1 tablet by mouth once daily Pravastatin 40 mg tablet Active 40 mg PO DAILY December 19, 2024 12:00am Start: 02-13-2024 pravastatin 40 mg oral tablet Dose : 40 mg = 1 tab(s), Oral, Daily, # 100 tab(s), 3 Refill(s), Pharmacy: [facility], 175, cm, 02/13/24 15:03:00 EDT, [...] Date: 06/13/23 Stop Date: 06/18/23 Status: Ordered rosuvastatin calcium 20 mg oral tablet (3 sources) HMG-CoA Reductase Inhibitor Start: 12-12-2023 rosuvastatin 20 mg oral tablet Dose : 20 mg = 1 tab(s), Oral, Daily, # 100 tab(s), 3 Refill(s), Pharmacy: [facility], 177.8, cm, 11/28/23 13:54:00 EDT, [...] BID, # 180 tab(s), 3 Refill(s), Pharmacy: [facility], 177.8, cm, 11/28/23 13:54:00 EDT, Height, kg, 11/28/23 13:54:00 EDT, Dosing Weight Start Date: 12/12/23 Stop Date: 12/06/24 Status: Ordered Start: 03-22-2023 take 1 tablet by brandon twice daily sacubitril-valsartan 49 mg-51 mg oral tablet Dose = 1 tab(s), Oral, BID, # 60 tab(s), 3 Refill(s), [facility]acy: [facility] #[id number], 175.3, cm, 03/22/23 13:31:00 EDT, Height, kg, [...] qDay, # 60 tab(s), 5 Refill(s), Pharmacy: [facility] #[id number], 175.3, cm, 12/23/22 6:37:00 EDT, Height, kg, 12/23/22 6:38:00 EDT, Dosing Weight Start Date: 02/07/23 Status: Ordered Start: 11-24-2022 spironolactone 25 mg oral tablet Dose : 25 mg = 1 tab(s), Oral, qDay, # 60 tab(s), 0 Refill(s), Pharmacy: [facility] #[id number], 177, cm, 11/08/22 13:50:00 EDT, Height, kg, 11/08/22 13:50:00 EDT, Dosing Weight Start Date: 11/24/22 Status: Ordered Start: 11-04-2022 spironolactone 25 mg oral tablet Dose : 25 mg = 1 tab(s), Oral, BIDM, # 60 tab(s), 0 Refill(s), Pharmacy: [facility] #[id number], 175.3, cm, 11/04/22 8:52:00 EDT, Height Start Date: 11/04/22 Status: Ordered Symbicort 80 mcg-4.5 mcg/inh Inhaler (13 sources) Start: 07-29-2024 End: 07-24-2025 take 1 dose by inhalation twice daily Symbicort 80 mcg-4.5 mcg/inh Inhaler Dose = 2 puff(s), Inhalation, BID, # 30.6 gram(s), 3 Refill(s), Pharmacy: [facility], 182, cm, 06/12/24 13:53:00 EST, Height, kg, 06/12/24 13:53:00 EST, Dosing Weight Start Date: 07/29/24 Stop Date: 07/24/25 Status: Ordered Quantity: 30.6 Unit: g Repeat number: 4 Start: 04-08-2024 End: 08-06-2024 take 1 dose by inhalation twice daily Symbicort 80 mcg-4.5 mcg/inh Inhaler Dose = 2 puff(s), Inhalation, BID, # 10.2 gram(s), 3 Refill(s), Pharmacy: [facility], 175, cm, 04/01/24 13:03:00 EST, Height, kg, 04/01/24 13:03:00 EST, Dosing Weight Start Date: 04/08/24 Stop Date: 08/06/24 Status: Ordered Quantity: 10.2 Unit: g Repeat number: 4 Start: 12-12-2023 End: 04-10-2024 take 1 dose by inhalation twice daily Symbicort 80 mcg-4.5 mcg/inh Inhaler Dose = 2 puff(s), Inhalation, BID, # 10.2 gram(s), 3 Refill(s), Pharmacy: [facility], 177.8, cm, 11/28/23 13:54:00 EDT, Height, kg, 11/28/23 13:54:00 EDT, Dosing Weight Start Date: 12/12/23 Stop Date: 04/10/24 Status: Ordered timolol 2.5 mg/ml ophthalmic solution (13 sources) beta-Adrenergic Kp Start: 10-25-2022 take 1 dose into the eye(s) twice daily timolol maleate 0.25% ophthalmic solution Dose = 1 drop(s), Eyes, both, BID, # 5 mL, 0 Refill(s) Start Date: 10/25/22 Status: Ordered Start: 10-23-2022 End: 12-20-2024 Timolol Maleate 0.25 % Drops Discontinued 1 NMA EACH EYE DAILY October 23, 2022 12:00am December 20, 2024 4:16pm tiZANidine 2 mg oral tablet (18 sources) Central alpha-2 Adrenergic Agonist Start: 12-19-2024 take 1 tablet by mouth every eight hours Tizanidine 2 mg tablet Active 2 mg PO Q8H December 19, 2024 12:00am Start: 12-19-2024 take 1 tablet by brandon th three times daily Tizanidine 2 mg tablet Active 2 mg PO THREE TIMES A DAY December 19, 2024 12:00am Start: 08-26-2024 End: 09-23-2024 tiZANidine 2 mg oral tablet Dose : 2 mg = 1 tab(s), Oral, q8h, PRN as needed for muscle spasm, # 21 tab(s), 3 Refill(s), Pharmacy: [facility], 182, cm, 06/12/24 13:53:00 EST, Height, kg, 06/12/24 13:53:00 EST, Dosing Weight Start Date: 08/26/24 Stop Date: 09/23/24 Status: Ordered Quantity: 21.0 Unit: tab(s) Repeat number: 4 Start: 03-04-2024 tiZANidine 2 m g oral tablet Dose : 2 mg = 1 tab(s), Oral, q8h, PRN as needed for muscle spasm, # 90 tab(s), 2 Refill(s), Pharmacy: [facility], 175, cm, 02/13/24 15:03:00 EDT, Height, kg, 02/13/24 15:03:00 EDT, Dosing Weight Start Date: 03/04/24 Status: Ordered Quantity: 90.0 Unit: tab(s) Repeat number: 3 Start: 01-08-2024 tiZANidine 2 m g oral tablet Dose : 2 mg = 1 tab(s), Oral, q8h, PRN as needed for muscle spasm, # 90 tab(s), 2 Refill(s), Pharmacy: [facility], 177.8, cm, 11/28/23 13:54:00 EDT, Height, kg, 11/28/23 13:54:00 EDT, Dosing Weight Start Date: 01/08/24 Status: Ordered traMADol hydrochloride 50 mg oral tablet (4 sources) Opioid Agonist Start: 12-19-2024 take 1 tablet by mouth every eight hours as needed for pain Tramadol 50 mg tablet Active 50 mg PO Q8H as needed for pain December 19, 2024 12:00am Start: 12-19-2024 take 1 tablet by brandon four times daily as needed for pain Tramadol 50 mg tablet Active 50 mg PO 4 TIMES DAILY NEEDED as needed for pain December 19, 2024 12:00am traZODone hydrochloride 100 mg oral tablet (20 sources) Serotonin Reuptake Inhibitor Start: 10-09-2024 take 1 tablet by mouth at bedtime Trazodone 100 mg tablet Active 100 mg PO AT BEDTIME December 19, 2024 12:00am Start: 09-19-2024 traZODone 100 mg oral tablet Dose : 100 mg = 1 tab(s), Oral, qHS, # 90 tab(s), 2 Refill(s), Pharmacy: [facility]/pharmacy #[id number], 175, cm, 09/05/24 16:01:00 EDT, Height, kg, 09/05/24 16:01:00 EDT, Dosing Weight Start Date: 09/19/24 Status: Ordered Quantity: 90.0 Unit: tab(s) Repeat number: 3 Start: 12-12-2023 traZODone 100 mg oral tablet Dose : 100 mg = 1 tab(s), Oral, qHS, # 90 tab(s), 3 Refill(s), Pharmacy: [facility], 177.8, cm, 11/28/23 13:54:00 EDT, Height, kg, 11/28/23 13:54:00 EDT, Dosing Weight Start Date: 12/12/23 Status: Ordered Quantity: 90.0 Unit: tab(s) Repeat number: 4 Start: 08-08-2023 traZODone 100 mg oral tablet Dose : 100 mg = 1 tab(s), Oral, qHS, # 90 tab(s), 3 Refill(s), Pharmacy: [facility] #[id number], 178.5, cm, 08/08/23 13:32:00 EDT, Height, kg, 08/08/23 13:32:00 EDT, Dosing Weight Start Date: 08/08/23 Status: Ordered Start: 12-13-2022 End: 04-12-2023 traZODone 100 mg oral tablet Dose : 100 mg = 1 tab(s), Oral, qHS, # 90 tab(s), 3 Refill(s), [facility]acy: [facility] #[id number], 175.3, cm, 12/23/22 6:37:00 EDT, Height, kg, 12/23/22 6:38:00 EDT, Dosing Weight Start Date: 01/31/23 Status: Ordered Start: 11-08-2022 End: 02-06-2023 traZODone 50 mg oral tablet Dose : 50 mg = 1 tab(s), Oral, qHS, # 30 tab(s), 2 Refill(s), Pharmacy: [facility] #[id number], 177, cm, 11/08/22 13:50:00 EDT, Height, kg, [...] day(s), # 30 gram(s), 0 Refill(s), Pharmacy: [facility] #[id number], Cream, 175.3, cm, 12/13/22 14:43:00 EDT, Height, [...] 4 EA, 3 Refill(s), generic OZEMPIC, Pharmacy: [facility] #[id number], 178.5, cm, 08/08/23 13:32:00 EDT, Height, kg, 08/08/23 13:32:00 EDT, Dosing Weight Start Date: 08/08/23 Stop Date: 12/06/23 Status: Ordered bisacodyl 10 mg rectal suppository (1 source) Stimulant Laxative Start: 12-23-2024 bisacodyl 10 mg rectal suppository Dose : 10 mg = 1 supp, Rectal, qDay, PRN as needed for constipation, 0 Refill(s) Start Date: 12/23/24 Status: Ordered Repeat number: 1 brimonidine tartrate 1 mg/ml ophthalmic solution (13 sources) alpha-Adrenergic Agonist Start: 10-25-2022 Alphagan P 0.1% ophthalmic solution Dose = 1 drop(s), Eyes, both, q8h, # 15 mL, 0 Refill(s) Start Date: 10/25/22 Status: Ordered Start: 10-23-2022 End: 12-20-2024 take 0.15 drop(s) into the eye(s) at bedtime Brimonidine (Alphagan P) 0.15 % Drops Discontinued 1 NMA EACH EYE AT BEDTIME October 23, 2022 12:00am December 20, 2024 4:10pm Start: 10-23-2022 take 0.15 drop(s) in to the eye(s) at bedtime Brimonidine (Alphagan P) 0.15 % Drops Active 1 DRP EACH EYE AT BEDTIME October 23, 2022 12:00am CeFAZolin 2 gm IV Syringe (1 source) Start: 12-26-2024 CeFAZolin 2 gm IV Syringe 2 gram(s), 20 mL, IV Push (INT), q8h, See physical Rx in chart left by ID physician, 0 Refill(s), Syringe, 140 Start Date: 12/26/24 Status: Ordered Repeat number: 1 lisinopril 40 mg oral tablet (11 sources) Angiotensin Converting Enzyme Inhibitor Start: 07-11-2022 End: 12-20-2024 take 1 tablet by mouth once daily Lisinopril 40 mg Tablet Discontinued 40 mg PO DAILY October 23, 2022 12:00am December 20, 2024 4:14pm Metoprolol (20 sources) beta-Adrenergic Kp Start: 12-26-2024 End: 12-26-2024 take 1 tablet by mouth in the evening Toprol-XL Start: 12/26/24 5:00:00 PM EDT, Dose = 100 mg, = 1 tab(s), Oral, 0, 12/23/24 21:40:00 EDT Start Date: 12/26/24 Stop Date: 12/26/24 Status: Completed Repeat number: 1 Start: 12-26-2024 End: 12-26-2024 take 1 tablet by mouth in the morning Toprol-XL Start: 12/26/24 8:00:00 AM EDT, Dose = 100 mg, = 1 tab(s), Oral, 0, 12/23/24 21:40:00 EDT Start Date: 12/26/24 Stop Date: 12/26/24 Status: Completed Repeat number: 1 Start: 12-25-2024 End: 12-25-2024 take 1 tablet by mouth in the evening Toprol-XL Start: 12/25/24 5:00:00 PM EDT, Dose = 100 mg, = 1 tab(s), Oral, 0, 12/23/24 21:40:00 EDT Start Date: 12/25/24 Stop Date: 12/25/24 Status: Completed Repeat number: 1 Start: 12-13-2024 End: 12-13-2024 Toprol-XL Start: 12/13/24 8:0 0:00 AM EDT, Dose = 100 [...] chew, # 60 tab(s), 3 Refill(s), [facility]: [facility] #[id number], Shortness of breath, 175.3, cm, 03/22/23 13:31:00 EDT, Height, kg, 03/22/23 13:31:00 EDT, Dosing Weight Start Date: 03/22/23 Stop Date: 03/29/23 Status: Ordered Start: 12-23-2022 Toprol-XL 50 m g oral tablet, extended release Dose : 50 mg = 1 tab(s), Oral, BID, # 60 tab(s), 6 Refill(s), Pharmacy: [facility] #[id number], 175.3, cm, 12/23/22 6:37:00 EDT, Height, kg, 12/23/22 6:38:00 EDT, Dosing Weight Start Date: 12/23/22 Status: Ordered Start: 10-23-2022 End: 12-20-2024 take 1 tablet by mouth twice daily Metoprolol Tartrate 25 mg tablet Discontinued 25 mg PO TWICE A DAY 60 0 October 23, 2022 12:00am December 20, 2024 4:15pm rivaroxaban 10 mg oral tablet (20 sources) Factor Xa Inhibitor Start: 12-19-2024 End: 12-20-2024 take 2 tablets by mouth once daily Rivaroxaban (Xarelto) 10 mg tablet Discontinued 20 mg PO DAILY December 19, 2024 12:00am December 20, 2024 4:18pm Start: 10-23-2022 End: 02-06-2023 Xarelto 20 mg oral tablet Do se : 20 mg = 1 tab(s), Oral, qHS, # 90 tab(s), 11 Refill(s), Pharmacy: [facility]/pharmacy #[id number], 177.8, cm, 10/02/24 6:28:00 EDT, Height, 140.3, kg, 10/02/24 6:28:00 EDT, Dosing Weight Start Date: 10/04/24 Status: Ordered Quantity: 90.0 Unit: tab(s) Repeat number: 12 Problems Active Problems Problem Classification Problem Date [...] asthma] 06-20-2023 Chronic Bacterial infection; unspecified site (10 sources) Bacteremia; 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: [Bacteremia] Onset: 11-24-2024 Episodic Cardiac dysrhythmias (20 sources) Atrial fibrillation; 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: [Unspecified atrial fibrillation] Onset: 10-16-2024 10-23-2022 Chronic Cardiac dysrhythmias (8 sources) Tachyarrhythmia ; 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: [Tachycardia, unspecified] Onset: 10-02-2024 Episodic Chronic obstructive pulmonary disease and bronchiectasis (14 sources) Acute exacerbation of chronic obstructive airways disease; 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: [Chronic obstructive lung disease] Onset: 11-24-2024 08-13-2024 Chronic Chronic obstructive pulmonary disease and bronchiectasis (8 sources) Bronchitis 08-13-2024 Episodic Chronic obstructive pulmonary disease and bronchiectasis (1 source) Chronic obstructive pulmonary disease and bronchiectasis; 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: [Other specified chronic obstructive pulmonary disease] Onset: 11-24-2024 Complication of device; implant or graft (2 sources) Infection and inflammatory reaction due to internal fixation device of right tibia, initial encounter; 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: [Infection and inflammatory reaction due to internal orthopedic fixation device] Onset: 12-23-2024 Episodic Complications of surgical procedures or medical care (18 sources) Superficial incisional surgical site infection; 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: [Infection following a procedure, superficial incisional surgical site, initial encounter] Onset: 11-24-2024 Episodic Conduction disorders (1 source) Left anterior fascicular block; 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: [Left anterior fascicular block] Chronic Congestive heart failure; nonhypertensive (20 sources) Acute exacerbation of chronic congestive heart failure; 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: [Heart failure, unspecified] Onset: 10-16-2024 10-23-2022 Chronic Diabetes mellitus with complications (4 sources) Complication due to diabetes mellitus; 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: [Type 2 diabetes mellitus with other specified complication] Onset: 12-10-2024 Chronic Diabetes mellitus without complication (20 sources) Diabetes mellitus; 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: [Type 2 diabetes mellitus] Onset: 08-08-2023 11-04-2022 Chronic Diabetes mellitus without complication (15 sources) Prediabetes 12-13-2022 Episodic Disorders of lipid metabolism (6 sources) Hyperlipidemia 11-07-2023 Chronic Disorders of teeth and jaw (11 sources) Periapical abscess; 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: [Periapical abscess without sinus] Onset: 07-15-2022 Episodic Esophageal disorders (5 sources) Gastroesophageal reflux disease without esophagitis; 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: [Gastro-esophageal reflux disease without esophagitis] Onset: 11-24-2024 Chronic Essential hypertension (20 sources) Hypertensive disorder; 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: [Essential (primary) hypertension] Onset: 08-08-2023 11-04-2022 Chronic Fluid and electrolyte disorders (8 sources) Acute hypokalemia; 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: [Hypokalemia] Onset: 10-27-2022 10-23-2022 Episodic Fracture of lower limb (9 sources) Bimalleolar fracture of ankle ; 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: [Displaced bimalleolar fracture of right lower leg, initial encounter for closed fracture] Onset: 08-29-2024 Episodic Hypertension with complications and secondary hypertension (6 sources) Hypertensive heart disease; 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: [Hypertensive heart disease without heart failure] Onset: 10-16-2024 Chronic Infective arthritis and osteomyelitis (except that caused by tuberculosis or sexually transmitted disease) (2 sources) Osteomyelitis, unspecified; 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: [Osteomyelitis] Onset: 12-23-2024 Chronic Mood disorders (11 sources) Depressive disorder; 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: [Depression, unspecified] Onset: 11-25-2024 09-05-2024 Chronic Mood disorders (2 sources) Mood disorders; 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: [Depression, unspecified] Onset: 11-24-2024 Nonspecific chest pain (20 sources) Chest pain; 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: [Chest pain, unspecified] Onset: 10-27-2022 10-23-2022 Episodic Other aftercare (1 source) Drug monitoring done; 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: [Encounter for therapeutic drug level monitoring] Episodic Other aftercare (2 sources) Long-term current use of anticoagulant; 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: [exterminator helper termite (current) use of anticoagulants] Episodic Other aftercare [...] Onset: 11-14-2024 Episodic Other aftercare (1 source) skilled nursing (current) use of anticoagulants; 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: [exterminator helper termite (current) use of anticoagulants] Onset: 10-16-2024 Episodic Other and ill-defined heart disease (8 sources) Left ventricular hypertrophy 06-12-2024 Chronic Other circulatory disease (6 sources) H/O: hypertension; 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: [Personal history of other diseases of the circulatory system] 10-23-2022 Episodic Other circulatory disease (1 source) Low blood pressure; 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: [Hypotension, unspecified] Episodic Other connective tissue disease (1 source) Foot pain; 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: [Pain in unspecified foot] Onset: 10-27-2022 Episodic Other connective tissue disease (1 source) Pain in upper limb; 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: [Pain in arm, unspecified] Onset: 08-09-2023 Episodic Other connective tissue disease (5 sources) Swelling of hand; 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: [Other specified soft tissue disorders] 12-20-2024 Episodic Other connective tissue disease (2 sources) Other specified soft tissue disorders; 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: [Other specified soft tissue disorders] Onset: 12-21-2024 Episodic Other injuries and conditions due to external causes (1 source) Personal history of (healed) traumatic fracture; 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: [Personal history of (healed) traumatic fracture] Onset: 12-23-2024 Episodic Other injuries and conditions due to external causes (1 source) H/O: fracture; 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: [Personal history of (healed) traumatic fracture] Onset: 12-26-2024 Episodic Other lower respiratory disease (14 sources) Dyspnea; 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: [Shortness of breath] Onset: 06-07-2023 Episodic Other lower respiratory disease (9 sources) Wheezing 08-08-2023 Episodic Other lower respiratory disease (8 sources) Cough 08-27-2024 Episodic Other lower respiratory disease (2 sources) Shortness of breath; 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: [Shortness of breath] Onset: 10-16-2024 Episodic Other lower respiratory disease (4 sources) Hypoxia; 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: [Hypoxemia] 12-20-2024 Episodic Other nervous system disorders (2 sources) Postoperative pain ; 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: [Other acute postprocedural [...] nutritional; endocrine; and metabolic disorders (3 sources) Morbid (severe) obesity due to excess calories; 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: [Morbid (severe) obesity due to excess calories] Onset: 10-16-2024 Chronic Other nutritional; endocrine; and metabolic disorders (1 source) Body mass index (BMI) 45.0-49.9, adult; 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: [Body mass index [BMI] 45.0-49.9, adult] Onset: 12-23-2024 Chronic Other nutritional; endocrine; and metabolic disorders (1 source) Hypomagnesemia; 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: [Hypomagnesemia] Onset: 11-24-2024 Chronic Other nutritional; endocrine; and metabolic disorders (1 source) Body mass index (BMI) 40.0-44.9, adult; 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: [Body mass index [BMI] 40.0-44.9, adult] Onset: 10-16-2024 Chronic Other nutritional; endocrine; and metabolic disorders (6 sources) History of diabetes mellitus type 2; 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: [Personal history of other endocrine, nutritional and metabolic disease] 10-23-2022 Episodic Other nutritional; endocrine; and metabolic disorders (1 source) H/O: Disorder; 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: [Personal history of other endocrine, nutritional and metabolic disease] Episodic Other skin disorders (2 sources) Mass of upper limb 02-13-2024 Episodic Other skin disorders (6 sources) Localized swelling of right hand; 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: [Localized swelling, mass and lump, right upper limb] 12-20-2024 Episodic Other skin disorders (2 sources) Localized swelling, mass and lump, right upper limb; 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: [Localized swelling, mass and lump, right upper limb] Onset: 12-23-2024 Episodic Other upper respiratory infections (2 sources) [...] (pediatric)] Onset: 10-02-2024 Chronic Residual codes; unclassified (20 sources) Insomnia 11-08-2022 Episodic Respiratory failure; insufficiency; arrest (adult) (4 sources) Acute respiratory failure; 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: [Acute respiratory failure with hypoxia] Onset: 11-24-2024 Episodic Shock (1 source) Shock; 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: [Other shock] Episodic Skin and subcutaneous tissue infections (2 sources) Cellulitis of right lower limb; 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: [Cellulitis of lower limb] Onset: 12-23-2024 Episodic Sprains and strains (1 source) Sprain of wrist; 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: [Unspecified sprain of unspecified wrist, initial encounter] Onset: 07-11-2022 Episodic Substance-related disorders (20 sources) Nicotine dependence 11-08-2022 Chronic Superficial injury; contusion (1 source) Contusion of right chest wall; 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: [Contusion of right front wall of thorax, initial encounter] Onset: 05-05-2023 Episodic Syncope (13 sources) Syncope and collapse; 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: [Syncope and collapse] Episodic Unclassified (20 sources) Patient encounter status 11-08-2022 Unclassified (1 source) Acute cough; 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: [Acute cough] Onset: 10-11-2023 Unclassified (9 sources) Statin not tolerated (context-dependent category) 05-14-2024 Unclassified (1 source) Sheltered homelessness; 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: [Sheltered homelessness] Onset: 12-10-2024 Unclassified (1 source) Other persistent atrial fibrillation; [...] Test Name Value Interpretation Reference Range Facility .Auto Diffon 12-26-2024 Basophil, Absolute 0.0 10 3/mcL Normal 0.0-0.3 [facility] Comment on above: Performed By: #### C BC, MG, GFR, ADIFF, BMP, ANEU #### [address] [address] Basophils/100 WBC (Bld) 0.9 % Normal 0.0-2.5 [facility] Comment on above: Performed By: #### C BC, MG, GFR, ADIFF, BMP, ANEU #### [address] [address] Eosinophil, Absolute 0.1 10 3/mcL Normal 0.0-0.7 [facility] Comment on above: Performed By: #### C BC, MG, GFR, ADIFF, BMP, ANEU #### [address] [address] Eosinophils/100 WBC (Bld) 3.2 % Normal 0.0-6.0 [facility] Comment on above: Performed By: #### C BC, MG, GFR, ADIFF, BMP, ANEU #### [address] [address] Lymphocyte, Absolute 1.0 10 3/mcL Normal 0.9-4.3 [facility] Comment on above: Performed By: #### C BC, MG, GFR, ADIFF, BMP, ANEU #### [address] [address] Lymphocytes/100 WBC (Bld) 22.4 % Normal 20.0-40.0 [facility] Comment on above: Performed By: #### C BC, MG, GFR, ADIFF, BMP, ANEU #### [address] [address] Monocyte, Absolute 0.6 10 3/mcL Normal 0.1-1.4 [facility] Comment on above: Performed By: #### C BC, MG, GFR, ADIFF, BMP, ANEU #### [address] [address] Monocytes/100 WBC (Bld) 13.1 % High 2.0-13.0 [facility] Comment on above: Performed By: #### C BC, MG, GFR, ADIFF, BMP, ANEU #### [address] [address] Neutrophils/100 WBC (Bld) 60.4 % Normal 50.0-75.0 [facility] Comment on above: Performed By: #### C BC, MG, GFR, ADIFF, BMP, ANEU #### [address] [address] .GFRon 12-26-2024 Estimated Glomerular Filtration Rate 105 ml/min/1.73sqm Normal [facility] Comment on above: Result Comment: Stages [...] calculate the eGFR results. Performed By: #### C BC, MG, GFR, ADIFF, BMP, ANEU #### [address] [address] .NEUABSon 12-26-2024 Neutrophil, Absolute 2.6 10 3/mcL Normal 2.3-8.1 [facility] Comment on above: Performed By: #### C BC, MG, GFR, ADIFF, BMP, ANEU #### [address] [address] BMPon 12-26-2024 BUN/Creatinine Ratio 7.4 ratio Low 10.0-22.0 [facility] Comment on above: Performed By: #### C BC, MG, GFR, ADIFF, BMP, ANEU #### [address] [address] Calcium [Mass/Vol] 9.1 mg/dL Normal 8.7-10.4 [facility] Comment on above: Performed By: #### C BC, MG, GFR, ADIFF, BMP, ANEU #### [address] [address] Chloride [Moles/Vol] 104 mmol/L Normal 98-110 [facility] Comment on above: Performed By: #### C BC, MG, GFR, ADIFF, BMP, ANEU #### [address] [address] CO2 [Moles/Vol] 28 mmol/L Normal 22-32 [facility] Comment on above: Performed By: #### C BC, MG, GFR, ADIFF, BMP, ANEU #### [address] [address] Creatinine [Mass/Vol] 0.81 mg/dL Normal 0.60-1.40 [facility] MAIN Comment on above: Result Comment: Test ing performed on Musiwave analyzer using enzymatic creatinine methodology. Performed By: #### C BC, MG, GFR, ADIFF, BMP, ANEU #### [place] [id number] Electrolyte Balance 8.0 mEq/L Normal 4.0-15.0 [facility] MAIN Comment on above: Performed By: #### C BC, MG, GFR, ADIFF, BMP, ANEU #### [address] [address] Glucose [Mass/Vol] 151 mg/dL High 70-110 [facility] Comment on above: Performed By: #### C BC, MG, GFR, ADIFF, BMP, ANEU #### [address] [address] Potassium [Moles/Vol] 4.1 mmol/L Normal 3.5-5.0 [facility] Comment on above: Performed By: #### C BC, MG, GFR, ADIFF, BMP, ANEU #### [address] [address] Sodium [Moles/Vol] 140 mmol/L Normal 136-145 [facility] Comment on above: Performed By: #### C BC, MG, GFR, ADIFF, BMP, ANEU #### [place] [address] Urea nitrogen [Mass/Vol] 6.0 mg/dL Low 8.0-22.0 [facility] Comment on above: Performed By: #### C BC, MG, GFR, ADIFF, BMP, ANEU #### [place] [address] CBCon 12-26-2024 Erythrocyte distribution width (RBC) [Ratio] 14.7 % Normal 11.5-15.5 [facility] Comment on above: Performed By: #### C BC, MG, GFR, ADIFF, BMP, ANEU #### [place] [address] Hematocrit (Bld) [Volume fraction] 40.7 % Normal 40.0-52.0 [facility] Comment on above: Performed By: #### C BC, MG, GFR, ADIFF, BMP, ANEU #### [place] [address] Hgb 13.2 G/dL Normal 13.0-17.5 [facility] Comment on above: Performed By: #### C BC, MG, GFR, ADIFF, BMP, ANEU #### [place] [address] MCH (RBC) [Entitic mass] 27.6 pg Normal 27.0-33.0 [facility] Comment on above: Performed By: #### C BC, MG, GFR, ADIFF, BMP, ANEU #### [place] [address] MCHC 32.3 G/dL Normal 32.0-36.0 [facility] Comment on above: Performed By: #### C BC, MG, GFR, ADIFF, BMP, ANEU #### [place] [address] MCV (RBC) [Entitic vol] 85.4 fL Normal 81.0-100.0 [facility] Comment on above: Performed By: #### C BC, MG, GFR, ADIFF, BMP, ANEU #### [place] [address] Platelet 148 10 3/mcL Low 150-450 [facility] Comment on above: Performed By: #### C BC, MG, GFR, ADIFF, BMP, ANEU #### [place] [address] Platelet mean volume (Bld) [Entitic vol] 8.2 fL Normal 6.4-10.5 [facility] Comment on above: Performed By: #### C BC, MG, GFR, ADIFF, BMP, ANEU #### [place] [address] RBC 4.77 10 6/mcL Normal 4.50-6.00 [facility] Comment on above: Performed By: #### C BC, MG, GFR, ADIFF, BMP, ANEU #### [place] [address] WBC 4.3 10 3/mcL Low 4.5-10.8 [facility] Comment on above: Performed By: #### C BC, MG, GFR, ADIFF, BMP, ANEU #### [place] [address] LABORATORYOrdered By: Armando domínguez on 12-26-2024 Glucose [Mass/Vol] 171 mg/dL High 70 - 110 mg/dL [facility] LABORATORYOrdered By: Jr Mac on 12-26-2024 Glucose [Mass/Vol] 167 mg/dL High 70 - 110 mg/dL [facility] Glucose [Mass/Vol] 121 mg/dL High 70 - 110 mg/dL [facility] LABORATORYOrdered By: SYSTEM SYSTEM on 12-26-2024 Basophils (Bld) [#/Vol] 0.0 103/mcL Normal 0.0 - 0.3 10^3/mcL AH Workflow SS Basophils/100 WBC (Bld) 0.9 % Normal 0.0 - 2.5 % AH Workflow SS Calcium [Mass/Vol] 9.1 mg/dL Normal 8.7 - 10. 4 mg/dL AH ADM SS Chloride [Moles/Vol] 104 mmol/L Normal 98 - 11 0 mEq/L AH ADM SS CO2 [Moles/Vol] 28 mmol/L Normal 22 - 32 mEq/L ADM SS Creatinine [Mass/Vol] 0.81 mg/dL Normal 0.60 - 1.40 mg/dL ADM SS Comment on above: Interpretive Data: T esting performed on Musiwave analyzer using enzymatic creatinine methodology. Electrolyte Balance 8.0 mEq/L Normal 4.0 - 15 .0 mEq/L ADM SS Eosinophils (Bld) [#/Vol] 0.1 103/mcL Normal 0.0 - 0.7 10^3/mcL Workflow SS Eosinophils/100 WBC (Bld) 3.2 % Normal 0.0 - 6.0 % Workflow SS Erythrocyte distribution width (RBC) [Ratio] 14.7 % Normal 11.5 - 15.5 % Workflow SS Estimated Glomerular Filtration Rate 105 ml/min/1.73sqm Invalid Interpretation Code Chemistry S Comment [...] to calculate the eGFR results. Glucose [Mass/Vol] 151 mg/dL High 70 - 110 mg/dL ADM SS Hematocrit (Bld) [Volume fraction] 40.7 % Normal 40.0 - 52.0 % Workflow SS Hemoglobin (Bld) [Mass/Vol] 13.2 G/dL Normal 13.0 - 17.5 G/dL Workflow SS Lymphocytes (Bld) [#/Vol] 1.0 103/mcL Normal 0.9 - 4.3 10^3/mcL AH Workflow SS Lymphocytes/100 WBC (Bld) 22.4 % Normal 20.0 - 40.0 % Workflow SS Magnesium [Mass/Vol] 1.8 mg/dL Normal 1.6 - 2 .4 mg/dL AH ADM SS MCH (RBC) [Entitic mass] 27.6 pg Normal 27.0 - 33.0 pg AH Workflow SS MCHC 32.3 G/dL Normal 32.0 - 36.0 G/dL AH Workflow SS MCV (RBC) [Entitic vol] 85.4 fL Normal 81.0 - 100.0 fL AH Workflow SS Monocytes (Bld) [#/Vol] 0.6 103/mcL Normal 0.1 - 1.4 10^3/mcL AH Workflow SS Monocytes/100 WBC (Bld) 13.1 % High 2.0 - 13.0 % AH Workflow SS Neutrophils (Bld) [#/Vol] 2.6 103/mcL Normal 2.3 - 8.1 10^3/mcL AH Workflow SS Neutrophils/100 WBC (Bld) 60.4 % Normal 50.0 - 75.0 % AH Workflow SS Platelet mean volume (Bld) [Entitic vol] 8.2 fL Normal 6.4 - 10.5 fL AH Workflow SS Platelets (Bld) [#/Vol] 148 103/mcL Low 150 - 450 10^3/mcL AH Workflow SS Potassium [Moles/Vol] 4.1 mmol/L Normal 3.5 - 5.0 mEq/L AH ADM SS RBC (Bld) [#/Vol] 4.77 106/mcL Normal 4.50 - 6.0 0 10^6/mcL AH Workflow SS Sodium [Moles/Vol] 140 mmol/L Normal 136 - 145 mEq/L AH ADM SS Urea nitrogen [Mass/Vol] 6.0 mg/dL Low 8.0 - 22.0 mg/dL AH ADM SS Urea nitrogen/Creatinine [Mass ratio] 7.4 ratio Low 10.0 - 22.0 ratio AH ADM SS WBC (Bld) [#/Vol] 4.3 103/mcL Low 4.5 - 10.8 10^3/mcL Workflow SS MGon 12-26-2024 Magnesium [Mass/Vol] 1.8 mg/dL Normal 1.6-2.4 [facility] Comment on above: Performed By: #### C BC, MG, GFR, ADIFF, BMP, ANEU #### [place] [address] .Auto Diffon 12-25-2024 Basophil, Absolute 0.0 10 3/mcL Normal 0.0-0.3 [facility] Comment on above: Performed By: #### C BC, MG, GFR, ADIFF, BMP, ANEU #### [address] [address] Basophils/100 WBC (Bld) 0.6 % Normal 0.0-2.5 [facility] MA[facility] Comment on above: Performed By: #### C BC, MG, GFR, ADIFF, BMP, ANEU #### [address] [address] Eosinophil, Absolute 0.1 10 3/mcL Normal 0.0-0.7 [facility] MAIN Comment on above: Performed By: #### C BC, MG, GFR, ADIFF, BMP, ANEU #### [address] [address] Eosinophils/100 WBC (Bld) 2.2 % Normal 0.0-6.0 [facility] MAIN Comment on above: Performed By: #### C BC, MG, GFR, ADIFF, BMP, ANEU #### [address] [address] Lymphocyte, Absolute 0.9 10 3/mcL Normal 0.9-4.3 [facility] Comment on above: Performed By: #### C BC, MG, GFR, ADIFF, BMP, ANEU #### [address] [address] Lymphocytes/100 WBC (Bld) 14.1 % Low 20.0-40.0 [facility] MAIN Comment on above: Performed By: #### C BC, MG, GFR, ADIFF, BMP, ANEU #### [address] [address] Monocyte, Absolute 0.5 10 3/mcL Normal 0.1-1.4 [facility] Comment on above: Performed By: #### C BC, MG, GFR, ADIFF, BMP, ANEU #### [address] [address] Monocytes/100 WBC (Bld) 8.9 % Normal 2.0-13.0 [facility] Comment on above: Performed By: #### C BC, MG, GFR, ADIFF, BMP, ANEU #### [address] [address] Neutrophils/100 WBC (Bld) 74.2 % Normal 50.0-75.0 [facility] MAIN Comment on above: Performed By: #### C BC, MG, GFR, ADIFF, BMP, ANEU #### [address] [address] .GFRon 12-25-2024 Estimated Glomerular Filtration Rate 105 ml/min/1.73sqm Normal [facility] MAIN Comment on above: Result Comment: Stages [...] calculate the eGFR results. Performed By: #### C BC, MG, GFR, ADIFF, BMP, ANEU #### [address] [address] .NEUABSon 12-25-2024 Neutrophil, Absolute 4.5 10 3/mcL Normal 2.3-8.1 [facility] MAIN Comment on above: Performed By: #### C BC, MG, GFR, ADIFF, BMP, ANEU #### [address] [address] BMPon 12-25-2024 BUN/Creatinine Ratio 14.6 ratio Normal 10.0-22.0 [facility] Comment on above: Performed By: #### C BC, MG, GFR, ADIFF, BMP, ANEU #### [address] [address] Calcium [Mass/Vol] 9.2 mg/dL Normal 8.7-10.4 [facility] MAIN Comment on above: Performed By: #### C BC, MG, GFR, ADIFF, BMP, ANEU #### [address] [address] Chloride [Moles/Vol] 101 mmol/L Normal 98-110 [facility] Comment on above: Performed By: #### C BC, MG, GFR, ADIFF, BMP, ANEU #### [address] [address] CO2 [Moles/Vol] 31 mmol/L Normal 22-32 [facility] MA[facility] Comment on above: Performed By: #### C BC, MG, GFR, ADIFF, BMP, ANEU #### [address] [address] Creatinine [Mass/Vol] 0.82 mg/dL Normal 0.60-1.40 [facility] MAIN Comment on above: Result Comment: Test ing performed on Musiwave analyzer using enzymatic creatinine methodology. Performed By: #### C BC, MG, GFR, ADIFF, BMP, ANEU #### [address] [address] Electrolyte Balance 6.0 mEq/L Normal 4.0-15.0 [facility] MAIN Comment on above: Performed By: #### C BC, MG, GFR, ADIFF, BMP, ANEU #### [address] [address] Glucose [Mass/Vol] 218 mg/dL High 70-110 [facility] MAIN Comment on above: Performed By: #### C BC, MG, GFR, ADIFF, BMP, ANEU #### [address] [address] Potassium [Moles/Vol] 4.9 mmol/L Normal 3.5-5.0 [facility] MAIN Comment on above: Performed By: #### C BC, MG, GFR, ADIFF, BMP, ANEU #### [address] [address] Sodium [Moles/Vol] 138 mmol/L Normal 136-145 [facility] MAIN Comment on above: Performed By: #### C BC, MG, GFR, ADIFF, BMP, ANEU #### [address] [address] Urea nitrogen [Mass/Vol] 12.0 mg/dL Normal 8.0-22.0 [facility] MAIN Comment on above: Performed By: #### C BC, MG, GFR, ADIFF, BMP, ANEU #### [place] [address] CBCon 12-25-2024 Erythrocyte distribution width (RBC) [Ratio] 15.2 % Normal 11.5-15.5 [facility] MAIN Comment on above: Performed By: #### C BC, MG, GFR, ADIFF, BMP, ANEU #### [place] [address] Hematocrit (Bld) [Volume fraction] 43.7 % Normal 40.0-52.0 [facility] MAIN Comment on above: Performed By: #### C BC, MG, GFR, ADIFF, BMP, ANEU #### [place] [address] Hgb 14.1 G/dL Normal 13.0-17.5 [facility] MAIN Comment on above: Performed By: #### C BC, MG, GFR, ADIFF, BMP, ANEU #### [place] [address] MCH (RBC) [Entitic mass] 27.3 pg Normal 27.0-33.0 [facility] MAIN Comment on above: Performed By: #### C BC, MG, GFR, ADIFF, BMP, ANEU #### [place] [address] MCHC 32.3 G/dL Normal 32.0-36.0 [facility] MAIN Comment on above: Performed By: #### C BC, MG, GFR, ADIFF, BMP, ANEU #### [place] [address] MCV (RBC) [Entitic vol] 84.6 fL Normal 81.0-100.0 [facility]IN Comment on above: Performed By: #### C BC, MG, GFR, ADIFF, BMP, ANEU #### [place] [address] Platelet 136 10 3/mcL Low 150-450 [facility] MAIN Comment on above: Performed By: #### C BC, MG, GFR, ADIFF, BMP, ANEU #### [place] [address] Platelet mean volume (Bld) [Entitic vol] 8.5 fL Normal 6.4-10.5 [facility] MAIN Comment on above: Performed By: #### C BC, MG, GFR, ADIFF, BMP, ANEU #### [place] [address] RBC 5.16 10 6/mcL Normal 4.50-6.00 [facility] MAIN Comment on above: Performed By: #### C BC, MG, GFR, ADIFF, BMP, ANEU #### [place] [address] WBC 6.1 10 3/mcL Normal 4.5-10.8 [facility] MA[facility] Comment on above: Performed By: #### C BC, MG, GFR, ADIFF, BMP, ANEU #### [place] [address] LABORATORYOrdered By: Slime jaramillo on 12-25-2024 Blood Glucose Testing Reason Routine (12/25/24 4:14 PM) [facility] LABORATORYOrdered By: SYSTEM SYSTEM on 12-25-2024 Calcium [Mass/Vol] 9.2 mg/dL Normal 8.7 - 10. 4 mg/dL ADM SS Chloride [Moles/Vol] 101 mmol/L Normal 98 - 11 0 mEq/L ADM SS CO2 [Moles/Vol] 31 mmol/L Normal 22 - 32 mEq/L ADM SS Creatinine [Mass/Vol] 0.82 mg/dL Normal 0.60 - 1.40 mg/dL ADM SS Comment on above: Interpretive Data: T esting performed on Musiwave analyzer using enzymatic creatinine methodology. Electrolyte Balance 6.0 mEq/L Normal 4.0 - 15 .0 mEq/L AH ADM SS Estimated Glomerular Filtration Rate 105 ml/min/1.73sqm Invalid Interpretation Code Chemistry S Comment [...] to calculate the eGFR results. Glucose [Mass/Vol] 218 mg/dL High 70 - 110 mg/dL AH ADM SS Magnesium [Mass/Vol] 1.7 mg/dL Normal 1.6 - 2 .4 mg/dL AH ADM SS Potassium [Moles/Vol] 4.9 mmol/L Normal 3.5 - 5.0 mEq/L AH ADM SS Sodium [Moles/Vol] 138 mmol/L Normal 136 - 145 mEq/L AH ADM SS Urea nitrogen [Mass/Vol] 12.0 mg/dL Normal 8.0 - 22.0 mg/dL AH ADM SS Urea nitrogen/Creatinine [Mass ratio] 14.6 ratio Normal 10.0 - 22.0 ratio AH ADM SS Basophils (Bld) [#/Vol] 0.0 103/mcL Normal 0.0 - 0.3 10^3/mcL AH Workflow SS Basophils/100 WBC (Bld) 0.6 % Normal 0.0 - 2.5 % AH Workflow SS Eosinophils (Bld) [#/Vol] 0.1 103/mcL Normal 0.0 - 0.7 10^3/mcL AH Workflow SS Eosinophils/100 WBC (Bld) 2.2 % Normal 0.0 - 6.0 % AH Workflow SS Erythrocyte distribution width (RBC) [Ratio] 15.2 % Normal 11.5 - 15.5 % AH Workflow SS Hematocrit (Bld) [Volume fraction] 43.7 % Normal 40.0 - 52.0 % AH Workflow SS Hemoglobin (Bld) [Mass/Vol] 14.1 G/dL Normal 13.0 - 17.5 G/dL AH Workflow SS Lymphocytes (Bld) [#/Vol] 0.9 103/mcL Normal 0.9 - 4.3 10^3/mcL AH Workflow SS Lymphocytes/100 WBC (Bld) 14.1 % Low 20.0 - 40.0 % AH Workflow SS MCH (RBC) [Entitic mass] 27.3 pg Normal 27.0 - 33.0 pg AH Workflow SS MCHC 32.3 G/dL Normal 32.0 - 36.0 G/dL AH Workflow SS MCV (RBC) [Entitic vol] 84.6 fL Normal 81.0 - 100.0 fL AH Workflow SS Monocytes (Bld) [#/Vol] 0.5 103/mcL Normal 0.1 - 1.4 10^3/mcL AH Workflow SS Monocytes/100 WBC (Bld) 8.9 % Normal 2.0 - 13.0 % AH Workflow SS Neutrophils (Bld) [#/Vol] 4.5 103/mcL Normal 2.3 - 8.1 10^3/mcL AH Workflow SS Neutrophils/100 WBC (Bld) 74.2 % Normal 50.0 - 75.0 % AH Workflow SS Platelet mean volume (Bld) [Entitic vol] 8.5 fL Normal 6.4 - 10.5 fL AH Workflow SS Platelets (Bld) [#/Vol] 136 103/mcL Low 150 - 450 10^3/mcL AH Workflow SS RBC (Bld) [#/Vol] 5.16 106/mcL Normal 4.50 - 6.0 0 10^6/mcL AH Workflow SS Vancomycin trough [Mass/Vol] 17.0 ug/mL Normal 10.0 - 20.0 mcg/mL ADM SS WBC (Bld) [#/Vol] 6.1 103/mcL Normal 4.5 - 10.8 10^3/mcL AH Workflow SS LABORATORYOrdered By: Nicole Trejo on 12-25-2024 LDose Vancomycin:(trough) See eMAR (12/25/24 12:33 PM) Normal Chemistry S LABORATORYOrdered By: Luisa Iqbal on 12-25-2024 Blood Glucose Testing Reason Routine (12/25/24 11:33 AM) [facility] LABORATORYOrdered By: Patricia Max on 12-25-2024 Blood Glucose Testing Reason Routine (12/25/24 7:30 AM) [facility] MGon 12-25-2024 Magnesium [Mass/Vol] 1.7 mg/dL Normal 1.6-2.4 [facility] MAIN Comment on above: Order Comment: QNS 14:03:01 EDT Performed By: #### C BC, MG, GFR, ADIFF, BMP, ANEU #### [address] [address] No Panel Informationon 12-25 Microscopic examination of blood, culture Culture has been received in lab and is no growth to date. Routine cultures are held for 5 days. [facility] 12-25-2024 LDose Vancomycin:(trough) See eMAR Normal [facility] MAIN Comment on above: Performed By: #### A DIFF, ANEU, BMP, CBC, GFR #### [address] [address] Vancomycin Tr 17.0 mcg/mL Normal 10.0-20.0 [facility] MAIN Comment on above: Performed By: #### A DIFF, ANEU, BMP, CBC, GFR #### [address] [address] XR FLUORO 1-2 HRS TECH TIMEo n 12-25-2024 XR FLUORO 1-2 HRS TECH TIME ORIGINAL EXAMINATION: SPOT FLUOROSCOPIC IMAGES 12/24/2024 5:26 pm TECHNIQUE: Fluoroscopy was provided by the radiology department for procedure. Radiologist was not present during examination. FLUOROSCOPY DOSE AND TYPE: Radiation Exposure Index: 0.194 mGy reference air kerma, Fluoro time: 3.2 seconds 1 image was saved COMPARISON: Right ankle x-ray on 12/23/2024 HISTORY: ORDERING SYSTEM PROVIDED HISTORY: Reason for Exam: ORIF RT ANKLE Intraprocedural imaging. FINDINGS: Spot intraoperative images are obtained demonstrating external fixation hardware has been removed from the right calcaneus. Osseous defect in posterior calcaneus is present. IMPRESSION: Intraprocedural fluoroscopic spot images as above. See separate procedure report for more information. Interpreted by: Darnell Molina MD Preliminary Report By: Darnell Molina MD Electronically signed By Darnell Molina MD Dictated Date: 12/25/2024 3:49:46 AM Prelim Date: 12/25/2024 3:52:11 AM Sign Date: 12/25/2024 3:52:11 AM Ordering Provider: ANA LUISA Kate [facility] MAIN .Auto Diffon 12-24-2024 Basophil, Absolute 0.1 10 3/mcL Normal 0.0-0.3 [facility] Comment on above: Performed By: #### C BC, MG, GFR, ADIFF, BMP, ANEU #### [address] [address] Basophils/100 WBC (Bld) 1.0 % Normal 0.0-2.5 [facility] MAIN Comment on above: Performed By: #### C BC, MG, GFR, ADIFF, BMP, ANEU #### [address] [address] Eosinophil, Absolute 0.1 10 3/mcL Normal 0.0-0.7 [facility] MAIN Comment on above: Performed By: #### C BC, MG, GFR, ADIFF, BMP, ANEU #### [address] [address] Eosinophils/100 WBC (Bld) 1.8 % Normal 0.0-6.0 [facility] MAIN Comment on above: Performed By: #### C BC, MG, GFR, ADIFF, BMP, ANEU #### [address] [address] Lymphocyte, Absolute 0.9 10 3/mcL Normal 0.9-4.3 [facility] Comment on above: Performed By: #### C BC, MG, GFR, ADIFF, BMP, ANEU #### [address] [address] Lymphocytes/100 WBC (Bld) 11.7 % Low 20.0-40.0 [facility] Comment on above: Performed By: #### C BC, MG, GFR, ADIFF, BMP, ANEU #### [address] [address] Monocyte, Absolute 1.0 10 3/mcL Normal 0.1-1.4 [facility] Comment on above: Performed By: #### C BC, MG, GFR, ADIFF, BMP, ANEU #### [address] [address] Monocytes/100 WBC (Bld) 12.9 % Normal 2.0-13.0 [facility] Comment on above: Performed By: #### C BC, MG, GFR, ADIFF, BMP, ANEU #### [address] [address] Neutrophils/100 WBC (Bld) 72.6 % Normal 50.0-75.0 [facility] Comment on above: Performed By: #### C BC, MG, GFR, ADIFF, BMP, ANEU #### [address] [address] .GFRon 12-24-2024 Estimated Glomerular Filtration Rate 92 ml/min/1.73sqm [facility] MAIN Comment on above: Result Comment: [...] calculate the eGFR results. Performed By: #### C BC, MG, GFR, ADIFF, BMP, ANEU #### [address] [id number] Estimated Glomerular Filtration Rate 92 ml/min/1.73sqm [facility] MAIN Comment on above: Result Comment: [...] eGFR results. Performed By: #### A DIFF, ANEU, BMP, CBC, GFR #### [place] [address] .NEUABSon 12-24-2024 Neutrophil, Absolute 5.4 10 3/mcL Normal 2.3-8.1 [facility] MAIN Comment on above: Performed By: #### C BC, MG, GFR, ADIFF, BMP, ANEU #### [place] [id number] BMPon 12-24-2024 BUN/Creatinine Ratio 11.2 ratio Normal 10.0-22.0 [facility] MAIN Comment on above: Performed By: #### C BC, MG, GFR, ADIFF, BMP, ANEU #### [place] [address] Calcium [Mass/Vol] 9.2 mg/dL Normal 8.7-10.4 [facility] MAIN Comment on above: Performed By: #### C BC, MG, GFR, ADIFF, BMP, ANEU #### [place] [address] Chloride [Moles/Vol] 97 mmol/L Low 98-110 [facility] MAIN Comment on above: Performed By: #### C BC, MG, GFR, ADIFF, BMP, ANEU #### [place] [address] CO2 [Moles/Vol] 32 mmol/L Normal 22-32 [facility] MAIN Comment on above: Performed By: #### C BC, MG, GFR, ADIFF, BMP, ANEU #### [place] [address] Creatinine [Mass/Vol] 0.98 mg/dL Normal 0.60-1.40 [facility] MAIN Comment on above: Result Comment: Test ing performed on Musiwave analyzer using enzymatic creatinine methodology. Performed By: #### C BC, MG, GFR, ADIFF, BMP, ANEU #### [place] [address] Electrolyte Balance 8.0 mEq/L Normal 4.0-15.0 [facility] MAIN Comment on above: Performed By: #### C BC, MG, GFR, ADIFF, BMP, ANEU #### [address] [address] Glucose [Mass/Vol] 118 mg/dL High 70-110 [facility] MAIN Comment on above: Performed By: #### C BC, MG, GFR, ADIFF, BMP, ANEU #### [address] [address] Potassium [Moles/Vol] 3.7 mmol/L Normal 3.5-5.0 [facility]IN Comment on above: Performed By: #### C BC, MG, GFR, ADIFF, BMP, ANEU #### [address] [address] Sodium [Moles/Vol] 137 mmol/L Normal 136-145 [facility] Comment on above: Performed By: #### C BC, MG, GFR, ADIFF, BMP, ANEU #### [address] [address] Urea nitrogen [Mass/Vol] 11.0 mg/dL Normal 8.0-22.0 [facility] Comment on above: Performed By: #### C BC, MG, GFR, ADIFF, BMP, ANEU #### [address] [address] BUN/Creatinine Ratio 11.2 ratio Normal 10.0-22.0 [facility]IN Comment on above: Performed By: #### A DIFF, ANEU, BMP, CBC, GFR #### [address] [address] Calcium [Mass/Vol] 9.3 mg/dL Normal 8.7-10.4 [facility] Comment on above: Performed By: #### A DIFF, ANEU, BMP, CBC, GFR #### [address] [address] Chloride [Moles/Vol] 99 mmol/L Normal 98-110 [facility] Comment on above: Performed By: #### A DIFF, ANEU, BMP, CBC, GFR #### [address] [address] CO2 [Moles/Vol] 31 mmol/L Normal 22-32 [facility] Comment on above: Performed By: #### A DIFF, ANEU, BMP, CBC, GFR #### [address] [address] Creatinine [Mass/Vol] 0.98 mg/dL Normal 0.60-1.40 [facility] Comment on above: Result Comment: Test ing performed on Musiwave analyzer using enzymatic creatinine methodology. Performed By: #### A DIFF, ANEU, BMP, CBC, GFR #### [address] [address] Electrolyte Balance 3.0 mEq/L Low 4.0-15.0 [facility] MAIN Comment on above: Performed By: #### A DIFF, ANEU, BMP, CBC, GFR #### [address] [address] Glucose [Mass/Vol] 100 mg/dL Normal 70-110 [facility] Comment on above: Performed By: #### A DIFF, ANEU, BMP, CBC, GFR #### [address] [address] Potassium [Moles/Vol] 4.8 mmol/L Normal 3.5-5.0 [facility] MA[facility] Comment on above: Performed By: #### A DIFF, ANEU, BMP, CBC, GFR #### [place] [id number] Sodium [Moles/Vol] 133 mmol/L Low 136-145 [facility] MA[facility] Comment on above: Performed By: #### A DIFF, ANEU, BMP, CBC, GFR #### [address] [address] Urea nitrogen [Mass/Vol] 11.0 mg/dL Normal 8.0-22.0 [facility] MAIN Comment on above: Performed By: #### A DIFF, ANEU, BMP, CBC, GFR #### [address] [address] CBCon 12-24-2024 Erythrocyte distribution width (RBC) [Ratio] 15.0 % Normal 11.5-15.5 [facility] MAIN Comment on above: Performed By: #### C BC, MG, GFR, ADIFF, BMP, ANEU #### [place] [address] Hematocrit (Bld) [Volume fraction] 44.1 % Normal 40.0-52.0 [facility]IN Comment on above: Performed By: #### C BC, MG, GFR, ADIFF, BMP, ANEU #### [place] [address] Hgb 14.3 G/dL Normal 13.0-17.5 [facility] MAIN Comment on above: Performed By: #### C BC, MG, GFR, ADIFF, BMP, ANEU #### [place] [address] MCH (RBC) [Entitic mass] 27.3 pg Normal 27.0-33.0 [facility] MA[facility] Comment on above: Performed By: #### C BC, MG, GFR, ADIFF, BMP, ANEU #### [place] [address] MCHC 32.3 G/dL Normal 32.0-36.0 [facility] MA[facility] Comment on above: Performed By: #### C BC, MG, GFR, ADIFF, BMP, ANEU #### [place] [address] MCV (RBC) [Entitic vol] 84.4 fL Normal 81.0-100.0 [facility] MAIN Comment on above: Performed By: #### C BC, MG, GFR, ADIFF, BMP, ANEU #### [place] [address] Platelet 140 10 3/mcL Low 150-450 [facility] MAIN Comment on above: Result Comment: Plat elet results confirmed. Specimen was checked for clot Performed By: #### C BC, MG, GFR, ADIFF, BMP, ANEU #### [place] [address] Platelet mean volume (Bld) [Entitic vol] 8.8 fL Normal 6.4-10.5 [facility] Comment on above: Performed By: #### C BC, MG, GFR, ADIFF, BMP, ANEU #### [place] [address] RBC 5.23 10 6/mcL Normal 4.50-6.00 [facility] MA[facility] Comment on above: Performed By: #### C BC, MG, GFR, ADIFF, BMP, ANEU #### [facility] [address] [place] [address] WBC 7.5 10 3/mcL Normal 4.5-10.8 [facility] MAIN Comment on above: Performed By: #### C BC, MG, GFR, ADIFF, BMP, ANEU #### [facility] [address] [place] [address] Comprehensive Metabolic Prof dcon 12-24-2024 ALB Normal 3.5-5.0 [facility] Comment on above: Order Comment: 314.2 Result Comment: [facility] Performed By: #### L 500.4100, L501.9985 #### [facility] [address] [place], [address] ALK PHOS Normal 40-129 [facility] Comment on above: Order Comment: 314.2 Result Comment: [facility] Performed By: #### L 500.4100, L501.9985 #### [facility] [address] [place], [address] ALT Normal <=46 [facility] Comment on above: Order Comment: 314.2 Result Comment: [facility] Performed By: #### L 500.4100, L501.9985 #### [facility] [address] [place], [address] AST Normal <=37 [facility] Comment on above: Order Comment: 314.2 Result Comment: [facility] Performed By: #### L 500.4100, L501.9985 #### [facility] [address] [place], [address] BUN Normal 4-19 [facility] Comment on above: Order Comment: 314.2 Result Comment: [facility] Performed By: #### L 500.4100, L501.85 #### [facility] [address] [place], [address] BUN/CRE Normal 10-20 [facility] Comment on above: Order Comment: 314.2 Result Comment: [facility] Performed By: #### L 500.4100, L501.9985 #### [facility] [address] [place], [address] Calcium Normal 7.6-11.0 [facility] Comment on above: Order Comment: 314.2 Result Comment: [facility] Performed By: #### L 500.4100, L501.9985 #### [facility] [address] [place], [address] CL Normal 98-108 [facility] Comment on above: Order Comment: 314.2 Result Comment: [facility] Performed By: #### L 500.4100, L501.85 #### [facility] [address] [place], [address] CO2 Normal 21.0-32.0 [facility] Comment on above: Order Comment: 314.2 Result Comment: [facility] Performed By: #### L 500.4100, L501.9985 #### [facility] [address] [place], [address] CREAT,SERUM Normal 0.70-1.20 [facility] Comment on above: Order Comment: 314.2 Result Comment: [facility] Performed By: #### L 500.4100, L501.9985 #### [facility] [address] [place], [address] eGFR Normal >60 [facility] Comment on above: Order Comment: 314.2 Result Comment: [facility] Performed By: #### L 500.4100, L501.9985 #### [facility] [address] [place], [address] GAP Normal 5-15 [facility] Comment on above: Order Comment: 314.2 Result Comment: [facility] Performed By: #### L 500.4100, L501.9985 #### [facility] [address] [place], [address] GLU Normal 70-99 [facility] Comment on above: Order Comment: 314.2 Result Comment: [facility] Performed By: #### L 500.4100, L501.9985 #### [facility] [address] [place], [address] Potassium Normal 3.3-5.1 [facility] Comment on above: Order Comment: 314.2 Result Comment: [facility] Performed By: #### L 500.4100, L501.9985 #### [facility] [address] [place], [address] T BILI Normal 0.00-1.30 [facility] Comment on above: Order Comment: 314.2 Result Comment: [facility] Performed By: #### L 500.4100, L501.9985 #### [facility] [address] [place], [address] T PROT Normal 5.9-8.4 [facility] Comment on above: Order Comment: 314.2 Result Comment: [facility] Performed By: #### L 500.4100, L501.9985 #### [facility] [address] [place], [address] Comprehensive Metabolic Profil Normal 133-145 [facility] Comment on above: Order Comment: 314.2 Result Comment: [facility] Performed By: #### L 500.4100, L501.9985 #### [facility] [address] [place], [address] LABORATORYOrdered By: SYSTEM SYSTEM on 12-24-2024 Basophils (Bld) [#/Vol] 0.1 103/mcL Normal 0.0 - 0.3 10^3/mcL AH Workflow SS Basophils/100 WBC (Bld) 1.0 % Normal 0.0 - 2.5 % AH Workflow SS Calcium [Mass/Vol] 9.2 mg/dL Normal 8.7 - 10. 4 mg/dL AH ADM SS Chloride [Moles/Vol] 97 mmol/L Low 98 - 11 0 mEq/L AH ADM SS CO2 [Moles/Vol] 32 mmol/L Normal 22 - 32 mEq/L AH ADM SS Creatinine [Mass/Vol] 0.98 mg/dL Normal 0.60 - 1.40 mg/dL AH ADM SS Comment on above: Interpretive Data: T esting performed on AM[employer] CH analyzer using enzymatic creatinine methodology. Electrolyte Balance 8.0 mEq/L Normal 4.0 - 15 .0 mEq/L AH ADM SS Eosinophils (Bld) [#/Vol] 0.1 103/mcL Normal 0.0 - 0.7 10^3/mcL AH Workflow SS Eosinophils/100 WBC (Bld) 1.8 % Normal 0.0 - 6.0 % AH Workflow SS Erythrocyte distribution width (RBC) [Ratio] 15.0 % Normal 11.5 - 15.5 % AH Workflow SS Estimated Glomerular Filtration Rate 92 ml/min/1.73sqm Invalid Interpretation Code AH ADM SS [...] to calculate the eGFR results. Glucose [Mass/Vol] 118 mg/dL High 70 - 110 mg/dL ADM SS Hematocrit (Bld) [Volume fraction] 44.1 % Normal 40.0 - 52.0 % Workflow SS Hemoglobin (Bld) [Mass/Vol] 14.3 G/dL Normal 13.0 - 17.5 G/dL Workflow SS Lymphocytes (Bld) [#/Vol] 0.9 103/mcL Normal 0.9 - 4.3 10^3/mcL Workflow SS Lymphocytes/100 WBC (Bld) 11.7 % Low 20.0 - 40.0 % Workflow SS Magnesium [Mass/Vol] 1.9 mg/dL Normal 1.6 - 2 .4 mg/dL [facility] SS MCH (RBC) [Entitic mass] 27.3 pg Normal 27.0 - 33.0 pg Workflow SS MCHC 32.3 G/dL Normal 32.0 - 36.0 G/dL Workflow SS MCV (RBC) [Entitic vol] 84.4 fL Normal 81.0 - 100.0 fL Workflow SS Monocytes (Bld) [#/Vol] 1.0 103/mcL Normal 0.1 - 1.4 10^3/mcL Workflow SS Monocytes/100 WBC (Bld) 12.9 % Normal 2.0 - 13.0 % Workflow SS Neutrophils (Bld) [#/Vol] 5.4 103/mcL Normal 2.3 - 8.1 10^3/mcL Workflow SS Neutrophils/100 WBC (Bld) 72.6 % Normal 50.0 - 75.0 % Workflow SS Platelet mean volume (Bld) [Entitic vol] 8.8 fL Normal 6.4 - 10.5 fL [facility] SS Platelets (Bld) [#/Vol] 140 103/mcL Low 150 - 450 10^3/mcL Workflow SS Comment on above: Result Comment: Plat elet results confirmed. Specimen was checked for clot Potassium [Moles/Vol] 3.7 mmol/L Normal 3.5 - 5.0 mEq/L ADM SS PT Coag (PPP) [Time] 13.8 s Normal 9.0 - 1 4.4 seconds [facility] SS Comment on above: Interpretive Data: E ffective 12/11/07, Protime results may be affected by some antibiotics (i.e. Ciprofloxacin, Azithromycin, Bactrim) which may potentiate the action of oral anticoagulants, with further increases in Protime/INR. PT International Ratio 1.2 ratio Invalid Interpretation Code AH [facility] SS Comment on above: Interpretive Data: Baljinder linn [employer] (CHEST, 1992, 102:312S-25S) recommended therapeutic range for oral anticoagulant therapy is: LOW RISK: Prophylaxis of venous thrombosis INR: 2.0-3.0 Treatment of pulmonary embolism 2.0-3.0 Prevention of systemic embolism 2.0-3.0 HIGH RISK: Mechanical prosthetic valves 2.5-3.5 RBC (Bld) [#/Vol] 5.23 106/mcL Normal 4.50 - 6.0 0 10^6/mcL AH Workflow SS Sodium [Moles/Vol] 137 mmol/L Normal 136 - 145 mEq/L AH ADM SS Urea nitrogen [Mass/Vol] 11.0 mg/dL Normal 8.0 - 22.0 mg/dL ADM SS Urea nitrogen/Creatinine [Mass ratio] 11.2 ratio Normal 10.0 - 22.0 ratio AH ADM SS WBC (Bld) [#/Vol] 7.5 103/mcL Normal 4.5 - 10.8 10^3/mcL AH Workflow SS MGon 12-24-2024 Magnesium [Mass/Vol] 1.9 mg/dL Normal 1.6-2.4 [facility] MAIN Comment on above: Performed By: #### C BC, MG, GFR, ADIFF, BMP, ANEU #### [place] [address] No Panel Informationon 12-24 Microscopic examination of blood, culture Culture has been received in lab and is no growth to date. Routine cultures are held for 5 days. [facility] PROon 12-24-2024 INR Coag (PPP) [Relative time] 1.2 {INR} Normal [facility] MAIN Comment on above: Result Comment: [employer] (CHEST, 1992, 102:312S-25S) recommended therapeutic range for oral anticoagulant therapy is: LOW RISK: Prophylaxis of venous thrombosis INR: 2.0-3.0 Treatment of pulmonary embolism 2.0-3.0 Prevention of systemic embolism 2.0-3.0 HIGH RISK: Mechanical prosthetic valves 2.5-3.5 Performed By: #### C BC, MG, GFR, ADIFF, BMP, ANEU #### [address] [address] PT Coag (PPP) [Time] 13.8 s Normal 9.0-14.4 [facility] MAIN Comment on above: Result Comment: Effe ctive 12/11/07, Protime results may be affected by some antibiotics (i.e. Ciprofloxacin, Azithromycin, Bactrim) which may potentiate the action of oral anticoagulants, with further increases in Protime/INR. Performed By: #### C BC, MG, GFR, ADIFF, BMP, ANEU #### [address] [address] .Auto Diffon 12-23-2024 Basophil, Absolute 0.1 10 3/mcL Normal 0.0-0.3 [facility]IN Comment on above: Performed By: #### A DIFF, ANEU, BMP, CBC, GFR #### [address] [address] Basophils/100 WBC (Bld) 0.8 % Normal 0.0-2.5 [facility] MAIN Comment on above: Performed By: #### A DIFF, ANEU, BMP, CBC, GFR #### [address] [address] Eosinophil, Absolute 0.2 10 3/mcL Normal 0.0-0.7 [facility] MA[facility] Comment on above: Performed By: #### A DIFF, ANEU, BMP, CBC, GFR #### [address] [address] Eosinophils/100 WBC (Bld) 1.9 % Normal 0.0-6.0 [facility]IN Comment on above: Performed By: #### A DIFF, ANEU, BMP, CBC, GFR #### [address] [address] Lymphocyte, Absolute 1.2 10 3/mcL Normal 0.9-4.3 [facility] Comment on above: Performed By: #### A DIFF, ANEU, BMP, CBC, GFR #### [address] [address] Lymphocytes/100 WBC (Bld) 13.9 % Low 20.0-40.0 [facility] Comment on above: Performed By: #### A DIFF, ANEU, BMP, CBC, GFR #### [address] [address] Monocyte, Absolute 1.1 10 3/mcL Normal 0.1-1.4 [facility] Comment on above: Performed By: #### A DIFF, ANEU, BMP, CBC, GFR #### [address] [address] Monocytes/100 WBC (Bld) 12.5 % Normal 2.0-13.0 [facility] Comment on above: Performed By: #### A DIFF, ANEU, BMP, CBC, GFR #### [address] [address] Neutrophils/100 WBC (Bld) 70.9 % Normal 50.0-75.0 [facility] Comment on above: Performed By: #### A DIFF, ANEU, BMP, CBC, GFR #### [address] [address] .MDWon 12-23-2024 Monocyte Distribution Width 21.10 High 0.00-20.00 [facility] MAIN Comment on above: Result Comment: For adults in ED, MDW>20.0 may be associated with a higher risk of sepsis during the first 12hrs of hospital admission Performed By: #### A DIFF, ANEU, BMP, CBC, GFR #### [address] [address] .NEUABSon 12-23-2024 Neutrophil, Absolute 6.0 10 3/mcL Normal 2.3-8.1 [facility] MAIN Comment on above: Performed By: #### A DIFF, ANEU, BMP, CBC, GFR #### [address] [address] ABO/Rh (Gel)on 12-23-2024 ABO/Rh Interp Positive Invalid Interpretation Code [facility] MAIN Comment on above: Performed By: #### A DIFF, ANEU, BMP, CBC, GFR #### [address] [address] ABS (Gel)on 12-23-2024 ABSC Interp (Gel) Negative Normal [facility] MAIN Comment on above: Performed By: #### A DIFF, ANEU, BMP, CBC, GFR #### [place] [address] CBCon 12-23-2024 Erythrocyte distribution width (RBC) [Ratio] 15.1 % Normal 11.5-15.5 [facility]IN Comment on above: Performed By: #### A DIFF, ANEU, BMP, CBC, GFR #### [place] [address] Hematocrit (Bld) [Volume fraction] 47.5 % Normal 40.0-52.0 [facility]IN Comment on above: Performed By: #### A DIFF, ANEU, BMP, CBC, GFR #### [place] [address] Hgb 15.5 G/dL Normal 13.0-17.5 [facility] Comment on above: Performed By: #### A DIFF, ANEU, BMP, CBC, GFR #### [place] [address] MCH (RBC) [Entitic mass] 27.7 pg Normal 27.0-33.0 [facility] Comment on above: Performed By: #### A DIFF, ANEU, BMP, CBC, GFR #### [place] [address] MCHC 32.5 G/dL Normal 32.0-36.0 [facility] Comment on above: Performed By: #### A DIFF, ANEU, BMP, CBC, GFR #### [place] [address] MCV (RBC) [Entitic vol] 85.0 fL Normal 81.0-100.0 [facility] Comment on above: Performed By: #### A DIFF, ANEU, BMP, CBC, GFR #### [place] [id number] Platelet 223 10 3/mcL Normal 150-450 [facility] MA[facility] Comment on above: Performed By: #### A DIFF, ANEU, BMP, CBC, GFR #### [place] [address] Platelet mean volume (Bld) [Entitic vol] 8.0 fL Normal 6.4-10.5 [facility] Comment on above: Performed By: #### A DIFF, ANEU, BMP, CBC, GFR #### [facility] [address] [place] [address] RBC 5.59 10 6/mcL Normal 4.50-6.00 [facility] Comment on above: Performed By: #### A DIFF, ANEU, BMP, CBC, GFR #### [facility] [address] [place] [address] WBC 8.5 10 3/mcL Normal 4.5-10.8 [facility] Comment on above: Performed By: #### A DIFF, ANEU, BMP, CBC, GFR #### [address] [address] LABORATORYOrdered By: Suze Amaya on 12-23-2024 ABO and Rh group Nom (Bld) Blood group O Rh(D) positive Invalid Interpretation Code AH BB Auto SS Blood group antibody screen Ql Negative ABSC (12/23/24 8:06 PM) Normal AH BB Auto SS LABORATORYOrdered By: SYSTEM SYSTEM on 12-23-2024 Lactate [Moles/Vol] 1.0 mmol/L Normal 0.5 - 2. 2 mmol/L AH ADM SS Monocyte distribution width Auto (Bld) [Entitic vol] 21.10 1 High 0.00 - 20.00 AH Workflow SS Comment on above: Result Comment: For adults in ED, MDW>20.0 may be associated with a higher risk of sepsis during the first 12hrs of hospital admission LACon 12-23-2024 Lactic Acid Lvl 1.0 mmol/L Normal 0.5-2.2 [facility] Comment on above: Performed By: #### A DIFF, ANEU, BMP, CBC, GFR #### [address] [address] No Panel Informationon 12-23 Microscopic examination of blood, culture Culture has been received in lab and is no growth to date. Routine cultures are held for 5 days. [facility] Microscopic examination of blood, culture Culture has been received in lab and is no growth to date. Routine cultures are held for 5 days. [facility] XR ANKLE MINIMUM 3 VIEWS LEF Ton 12-23-2024 XR ANKLE MINIMUM 3 VIEWS LEFT ORIGINAL EXAMINATION: THREE XRAY VIEWS OF THE LEFT ANKLE COMPARISON: Left ankle radiograph 11/25/2024 HISTORY: ORDERING SYSTEM PROVIDED HISTORY: Reason for Exam: pain, prior fracture FINDINGS: Distal fibular/lateral malleolar mildly despite placed spiral fracture is not significantly changed in alignment. Periosteal reaction and mild bony remodeling is identified. Well corticated ossific densities inferior to the medial malleolus may represent sequela of prior trauma. Degenerative changes. Soft tissue swelling. No radiopaque foreign body. IMPRESSION: Similar alignment of distal fibular/lateral malleolar fracture with surrounding reparative changes. I have personally reviewed the images of this examination and agree with the resident's findings and interpretation. Interpreted by: Trace Fierro Preliminary Report By: Guerda Louie Electronically signed By Trace Fierro Dictated Date: 12/23/2024 9:50:21 PM Prelim Date: 12/23/2024 9:53:23 PM Sign Date: 12/23/2024 9:57:26 PM Ordering Provider: FARZAD Kate [facility] XR ANKLE MINIMUM 3 VIEWS RIG HTon 12-23-2024 XR ANKLE MINIMUM 3 VIEWS RIGHT ORIGINAL EXAMINATION: THREE XRAY VIEWS OF THE RIGHT ANKLE COMPARISON: Right ankle radiograph 11/25/2024 HISTORY: ORDERING SYSTEM PROVIDED HISTORY: Reason for Exam: pain, prior fracture, concern for infection around fixation hardware FINDINGS: External fixation of the tibia and calcaneus. Small area of bony lucency within the calcaneus. Similar appearance of mildly displaced spiral fracture of the distal fibula with minimal healing changes. Well corticated ossific densities inferior to the lateral and medial malleolus may represent sequela of prior trauma. No additional acute fracture or dislocation is identified. Scattered degenerative changes. No large joint effusion. Soft tissue swelling surrounding the ankle. IMPRESSION: External fixation hardware is similarly positioned. Small area of bony lucency surrounding the calcaneal hardware, which was not definitively identified on prior, and can be seen with developing perihardware infection. Stable appearance of mildly displaced distal fibular spiral fracture with minimal healing changes. Soft tissue swelling surrounding the ankle. I have personally reviewed the images of this examination and agree with the resident's findings and interpretation. Interpreted by: Mick Leggett MD Preliminary Report By: Guerda Louie Electronically signed By Mick Leggett MD Dictated Date: 12/23/2024 9:53:44 PM Prelim Date: 12/23/2024 9:59:16 PM Sign Date: 12/23/2024 10:04:30 PM Ordering Provider: FARZAD GIL [facility] MAIN Absolute lymphocyte countOrd ered By: Yaz Dee on 12-21-2024 Lymphocytes Auto (Unsp spec) [#/Vol] 1.12 10*3/uL 0.83-4.51 [facility] Absolute neutrophil countOrd ered By: Yaz Dee on 12-21-2024 Neutrophils (Bld) [#/Vol] 5.1 10*3/uL 2.0-7.7 [facility] Anion gap in Serum or Plasma Ordered By: Yaz Dee on 12-21-2024 Anion gap [Moles/Vol] 10 mmol/L 5-15 [facility] Automated lymphocyte count a s percentage of total leukocytesOrdered By: Yaz Dee on 12-21-2024 Lymphocytes/100 WBC Auto (Unsp spec) 15.1 % Low 19-41 [facility] BUN/creatinine ratioOrdered By: Yaz Dee on 12-21-2024 Urea nitrogen/Creatinine [Mass ratio] 13.8 mg/mg 10- [facility] Basic Metabolic Profile (BMP )on 12-21-2024 BUN/CRE 13.8 RATIO Normal 10- [facility] Comment on above: Performed By: #### L 500.2500, L100.0100 #### [facility] [address] [place], [address] Calcium [Mass/Vol] 9.2 mg/dL Normal 7.6-11.0 [facility] Comment on above: Performed By: #### L 500.2500, L100.0100 #### [facility] [address] [place], [address] Chloride [Moles/Vol] 101 mmol/L Normal 98-108 [facility] Comment on above: Performed By: #### L 500.2500, L100.0100 #### [facility] [address] [place], [address] CO2 [Moles/Vol] 29.1 mmol/L Normal 21.0-32.0 [facility] Comment on above: Performed By: #### L 500.2500, L100.0100 #### [facility] [address] [place], [address] Creatinine [Mass/Vol] 0.86 mg/dL Normal 0.70-1.20 [facility] Comment on above: Performed By: #### L 500.2500, L100.0100 #### [facility] [address] [place], [address] ECRCL 138.62 ml/min Normal 50-250 [facility] Comment on above: Performed By: #### L 500.2500, L100.0100 #### [facility] [address] [place], [address] GAP 10 Normal 5-15 [facility] Comment on above: Performed By: #### L 500.2500, L100.0100 #### [facility] [address] [place], [address] GFR/1.73 sq M.predicted among non-blacks MDRD (S/P/Bld) [Vol rate/Area] 103 mL/min/{1.73_m2} Normal >60 [facility] Comment on above: Result Comment: mL/m in/1.73m2 CKD-EPI Creatinine Equation (2020) Performed By: #### L 500.2500, L100.0100 #### [facility] [address] [place], [address] Glucose [Mass/Vol] 126 mg/dL High 70-99 [facility] Comment on above: Performed By: #### L 500.2500, L100.0100 #### [facility] [address] [place], [address] Potassium [Moles/Vol] 4.5 mmol/L Normal 3.3-5.1 [facility] Comment on above: Result Comment: Hemo lysis present, Results??could be affected. ?? Performed By: #### L 500.2500, L100.0100 #### [facility] [address] [place], [address] Sodium [Moles/Vol] 140 mmol/L Normal 133-145 [facility] Comment on above: Performed By: #### L 500.2500, L100.0100 #### [facility] [address] [place], [address] Urea nitrogen [Mass/Vol] 12 mg/dL Normal 4-19 [facility] Comment on above: Performed By: #### L 500.2500, L100.0100 #### [facility] [address] [place], [address] Basophil percentageOrdered B y: Yazsangeeta Dee on 12-21-2024 Basophils/100 WBC (Bld) 0.5 % 0-1 [facility]side Glucoseon 12-21-2024 FINGERSTICK GLU 171 mg/dL High 74-106 [facility] Comment on above: Result Comment: STEPHANIE GEMENT OF PATIENT CARE PER NURSING PROTOCOL Performed By: #### L 100.0500, L500.4050 #### [facility] [address] [place], [address] FINGERSTICK GLU 99 mg/dL Normal 74-106 [facility] Comment on above: Result Comment: STEPHANIE GEMENT OF PATIENT CARE PER NURSING PROTOCOL Performed By: #### L 500.4100, L501.9985 #### [facility] [address] [place], [address] CBC W/Diff, Automatedon 07-2 Absolute Lymph 1.12 X10 3/uL Normal 0.83-4.51 [facility] Comment on above: Performed By: #### L 500.2500, L100.0100 #### [facility] [address] [place], [address] Absolute Neut 5.1 X10 3/uL Normal 2.0-7.7 [facility] Comment on above: Performed By: #### L 500.2500, L100.0100 #### [facility] [address] [place], [address] Basophils/100 WBC (Bld) 0.5 % Normal 0-1 [facility] Comment on above: Performed By: #### L 500.2500, L100.0100 #### [facility] [address] [place], [address] Eosinophils/100 WBC (Bld) 1.9 % Normal 0-5 [facility] Comment on above: Performed By: #### L 500.2500, L100.0100 #### [facility] [address] [place], [address] Erythrocyte distribution width (RBC) [Ratio] 13.8 % Normal 11.6-14.6 [facility] Comment on above: Performed By: #### L 500.2500, L100.0100 #### [facility] [address] [place], [address] Hematocrit (Bld) [Volume fraction] 45.3 % Normal 40-54 [facility] Comment on above: Performed By: #### L 500.2500, L100.0100 #### [facility] [address] [place], [address] Hemoglobin (Bld) [Mass/Vol] 14.2 g/dL Normal 13.0-16.5 [facility] Comment on above: Performed By: #### L 500.2500, L100.0100 #### [facility] [address] [place], [address] IG% 0.300 Normal 0.0-0.9 [facility] Comment on above: Result Comment: IG% - Immature Granulocytes (promyelocytes, myelocytes and metamyelocytes) > 1% indicates that a LEFT SHIFT is Present. Performed By: #### L 500.2500, L100.0100 #### [facility] [address] [place], [address] Lymphocytes/100 WBC (Bld) 15.1 % Low 19-41 [facility] Comment on above: Performed By: #### L 500.2500, L100.0100 #### [facility] [address] [place], [address] MCH (RBC) [Entitic mass] 27.2 pg Normal 27.0-32.0 [facility] Comment on above: Performed By: #### L 500.2500, L100.0100 #### [facility] [address] [place], [address] MCHC (RBC) [Mass/Vol] 31.3 g/dL Low 32-36 [facility] Comment on above: Performed By: #### L 500.2500, L100.0100 #### [facility] [address] [place], [address] MCV (RBC) [Entitic vol] 86.6 fL Normal 80-94 [facility] Comment on above: Performed By: #### L 500.2500, L100.0100 #### [facility] [address] [place], [address] Monocytes/100 WBC (Bld) 13.4 % High 0-10 [facility] Comment on above: Performed By: #### L 500.2500, L100.0100 #### [facility] [address] [place], [address] Neutrophils/100 WBC (Bld) 68.8 % Normal 47-70 [facility] Comment on above: Performed By: #### L 500.2500, L100.0100 #### [facility] [address] [place], [address] Nucleated RBC (Bld) [#/Vol] 0 10*3/uL Normal 0-5 [facility] Comment on above: Performed By: #### L 500.2500, L100.0100 #### [facility] [address] [place], [address] Platelet mean volume (Bld) [Entitic vol] 9.8 fL Normal 6.2-12.0 [facility] Comment on above: Performed By: #### L 500.2500, L100.0100 #### [facility] [address] [place], [address] Platelets (Bld) [#/Vol] 191 10*3/uL Normal 150-450 [facility] Comment on above: Performed By: #### L 500.2500, L100.0100 #### [facility] [address] [place], [address] RBC (Bld) [#/Vol] 5.23 10*6/uL Normal 4.6-6.2 [facility] Comment on above: Performed By: #### L 500.2500, L100.0100 #### [facility] [address] [place], [address] RDW SD 43.9 fl Normal 35.1-43.9 [facility] Comment on above: Performed By: #### L 500.2500, L100.0100 #### [facility] [address] [place], [address] WBC (Bld) [#/Vol] 7.4 10*3/uL Normal 4.4-11.0 [facility] Comment on above: Performed By: #### L 500.2500, L100.0100 #### [facility] [address] [place], [address] Carbon dioxide, total [Moles /volume] in Central venous bloodOrdered By: Yaz Dee on 12-21-2024 CO2 [Moles/Vol] 29.1 mmol/L 21.0-32.0 [facility] Chloride assayOrdered By: Aram Dee on 12-21-2024 Chloride [Moles/Vol] 101 mmol/L 98-108 [facility] Eosinophil percentageOrdered By: Yaz Dee on 12-21-2024 Eosinophils/100 WBC (Bld) 1.9 % 0-5 [facility] Erythrocyte distribution wid th ratioOrdered By: Yaz Dee on 12-21-2024 Erythrocyte distribution width (RBC) [Ratio] 13.8 % 11.6-14.6 [facility] Erythrocyte distribution wid th standard deviationOrdered By: Yaz Dee on 12-21-2024 Erythrocyte distribution width (RBC) [Ratio] 43.9 fl 35.1-43.9 [facility] Glomerular filtration rate ( GFR) estimation/1.73 sq m using serum, plasma, or whole bOrdered By: Yaz eDe on 12-21-2024 GFR/1.73 sq M.predicted among non-blacks MDRD (S/P/Bld) [Vol rate/Area] 103 mL/min/{1.73_m2} >60 [facility] Comment on above: mL/min/1.73m2 CKD-EP I Creatinine Equation (2020) [facility] deOrdered By: Farzad Camilo on 12-21-2024 Glucose [Mass/Vol] 171 mg/dL High 74-106 [facility] Comment on above: MANAGEMENT OF PATIEN T CARE PER NURSING PROTOCOL Hematocrit Auto (Bld) [Volum e fraction]Ordered By: Yaz Dee on 12-21-2024 Hematocrit (Bld) [Volume fraction] 45.3 % 40-54 [facility] Hemoglobin measurementOrdere d By: Yaz Dee on 12-21-2024 Hemoglobin (Bld) [Mass/Vol] 14.2 g/dL 13.0-16.5 [facility] Immature granulocytes/100 WB C Auto (Bld)Ordered By: Yaz Dee on 12-21-2024 Immature granulocytes/100 WBC (Bld) 0.300 % 0.0-0.9 [facility] Comment on above: IG% - Immature Granu locytes (promyelocytes, myelocytes and metamyelocytes) > 1% indicates that a LEFT SHIFT is Present. MCV (mean corpuscular volume ) determinationOrdered By: Yaz Dee on 12-21-2024 MCV (RBC) [Entitic vol] 86.6 fL 80-94 [facility] Mean corpuscular hemoglobin (MCH) determinationOrdered By: Yaz Dee on 12-21-2024 MCH (RBC) [Entitic mass] 27.2 pg 27.0-32.0 [facility] Mean corpuscular hemoglobin concentration (MCHC) determinationOrdered By: Yaz Dee on 12-21-2024 MCHC (RBC) [Mass/Vol] 31.3 g/dL Low 32-36 [facility] Mean platelet volume determi nationOrdered By: Yaz Dee on 12-21-2024 Platelet mean volume (Bld) [Entitic vol] 9.8 fL 6.2-12.0 [facility] Monocyte percentageOrdered B y: Yaz Dee on 12-21-2024 Monocytes/100 WBC (Bld) 13.4 % High 0-10 [facility] Neutrophil percentageOrdered By: Yaz Dee on 12-21-2024 Neutrophils/100 WBC (Bld) 68.8 % 47-70 [facility] Nucleated red blood cell per centageOrdered By: Yaz Dee on 12-21-2024 Nucleated RBC/100 WBC (Bld) [Ratio] 0 % 0-5 [facility] Platelet countOrdered By: Aram Dee on 12-21-2024 Platelets (Bld) [#/Vol] 191 10*3/uL 150-450 [facility] Potassium measurement (mass/ volume)Ordered By: Yaz Dee on 12-21-2024 Potassium (Unsp spec) [Mass/Vol] 4.5 mmol/L 3.3-5.1 [facility] Comment on above: Hemolysis present, R esults could be affected. RBC Auto (Bld) [#/Vol]Ordere d By: Yaz Dee on 12-21-2024 RBC (Bld) [#/Vol] 5.23 10*6/uL 4.6-6.2 [facility] Serum creatinine measurement (mass/volume)Ordered By: Yaz Dee on 12-21-2024 Creatinine [Mass/Vol] 0.86 mg/dL 0.70-1.20 [facility] Serum glucose measurement (m ass/volume)Ordered By: Yaz Dee on 12-21-2024 Glucose [Mass/Vol] 126 mg/dL High 70-99 [facility] Serum or plasma calcium scott urement (mass/volume)Ordered By: Yaz Dee on 12-21-2024 Calcium [Mass/Vol] 9.2 mg/dL 7.6-11.0 [facility] Serum or plasma urea nitroge n measurement (mass/volume)Ordered By: Yaz Dee on 12-21-2024 Urea nitrogen [Mass/Vol] 12 mg/dL 4-19 [facility] Sodium levelOrdered By: Unique Dee on 12-21-2024 Sodium [Moles/Vol] 140 mmol/L 133-145 [facility] White blood cell (WBC) count Ordered By: Yaz Dee on 12-21-2024 WBC (Bld) [#/Vol] 7.4 10*3/uL 4.4-11.0 [facility] Absolute lymphocyte countOrd ered By: Robles Botello on 12-20-2024 Lymphocytes Auto (Unsp spec) [#/Vol] 0.89 10*3/uL 0.83-4.51 [facility] Absolute neutrophil countOrd ered By: Robles Botello on 12-20-2024 Neutrophils (Bld) [#/Vol] 6.4 10*3/uL 2.0-7.7 [facility] Anion gap in Serum or Plasma Ordered By: Robles Botello on 12-20-2024 Anion gap [Moles/Vol] 10 mmol/L 5-15 [facility] Automated lymphocyte count a s percentage of total leukocytesOrdered By: Robles Botello on 12-20-2024 Lymphocytes/100 WBC Auto (Unsp spec) 10.6 % Low 19-41 [facility] BUN/creatinine ratioOrdered By: Robles Botello on 12-20-2024 Urea nitrogen/Creatinine [Mass ratio] 12.3 mg/mg 10-20 [facility] Basic Metabolic Profile (BMP )on 12-20-2024 BUN/CRE 12.3 RATIO Normal -20 [facility] Comment on above: Performed By: #### L 100.0500, L500.4050 #### [facility] [address] [place], [address] Calcium [Mass/Vol] 9.2 mg/dL Normal 7.6-11.0 [facility] Comment on above: Performed By: #### L 100.0500, L500.4050 #### [facility] [address] [place], [address] Chloride [Moles/Vol] 98 mmol/L Normal 98-108 [facility] Comment on above: Performed By: #### L 100.0500, L500.4050 #### [facility] [address] [place], [address] CO2 [Moles/Vol] 26.7 mmol/L Normal 21.0-32.0 [facility] Comment on above: Performed By: #### L 100.0500, L500.4050 #### [facility] [address] [place], [address] Creatinine [Mass/Vol] 0.94 mg/dL Normal 0.70-1.20 [facility] Comment on above: Performed By: #### L 100.0500, L500.4050 #### [facility] [address] [place], [address] ECRCL 128.93 ml/min Normal 50-250 [facility] Comment on above: Performed By: #### L 100.0500, L500.4050 #### [facility] [address] [place], [address] GAP 10 Normal 5-15 [facility] Comment on above: Performed By: #### L 100.0500, L500.4050 #### [facility] [address] [place], [address] GFR/1.73 sq M.predicted among non-blacks MDRD (S/P/Bld) [Vol rate/Area] 97 mL/min/{1.73_m2} Normal >60 [facility] Comment on above: Result Comment: mL/m in/1.73m2 CKD-EPI Creatinine Equation (2020) Performed By: #### L 100.0500, L500.4050 #### [facility] [address] [place], [address] Glucose [Mass/Vol] 121 mg/dL High 70-99 [facility] Comment on above: Performed By: #### L 100.0500, L500.4050 #### [facility] [address] [place], [address] Potassium [Moles/Vol] 4.2 mmol/L Normal 3.3-5.1 [facility] Comment on above: Performed By: #### L 100.0500, L500.4050 #### [facility] [address] [place], [address] Sodium [Moles/Vol] 134 mmol/L Normal 133-145 [facility] Comment on above: Performed By: #### L 100.0500, L500.4050 #### [facility] [address] [place], [address] Urea nitrogen [Mass/Vol] 12 mg/dL Normal 4-19 [facility] Comment on above: Performed By: #### L 100.0500, L500.4050 #### [facility] [address] [place], [address] Basophil percentageOrdered B y: Robles Botello on 12-20-2024 Basophils/100 WBC (Bld) 0.5 % 0-1 [facility] Glucoseon 12-20-2024 FINGERSTICK GLU 222 mg/dL High 74-106 [facility] Comment on above: Result Comment: STEPHANIE ATKINSON OF PATIENT CARE PER NURSING PROTOCOL Performed By: #### L 501.080 #### [facility] [address] [place], [address] CBC W/Diff, Automatedon 07-2 -2024 Absolute Lymph 0.89 X10 3/uL Normal 0.83-4.51 [facility] Comment on above: Performed By: #### L 100.0500, L500.4050 #### [facility] [address] [place], [address] Absolute Neut 6.4 X10 3/uL Normal 2.0-7.7 [facility] Comment on above: Performed By: #### L 100.0500, L500.4050 #### [facility] [address] [place], [address] Basophils/100 WBC (Bld) 0.5 % Normal 0-1 [facility] Comment on above: Performed By: #### L 100.0500, L500.4050 #### [facility] [address] [place], [address] Eosinophils/100 WBC (Bld) 1.6 % Normal 0-5 [facility] Comment on above: Performed By: #### L 100.0500, L500.4050 #### [facility] [address] [place], [address] Erythrocyte distribution width (RBC) [Ratio] 13.9 % Normal 11.6-14.6 [facility] Comment on above: Performed By: #### L 100.0500, L500.4050 #### [facility] [address] [place], [address] Hematocrit (Bld) [Volume fraction] 46.2 % Normal 40-54 [facility] Comment on above: Performed By: #### L 100.0500, L500.4050 #### [facility] [address] [place], [address] Hemoglobin (Bld) [Mass/Vol] 14.3 g/dL Normal 13.0-16.5 [facility] Comment on above: Performed By: #### L 100.0500, L500.4050 #### [facility] [address] [place], [address] IG% 0.400 Normal 0.0-0.9 [facility] Comment on above: Result Comment: IG% - Immature Granulocytes (promyelocytes, myelocytes and metamyelocytes) > 1% indicates that a LEFT SHIFT is Present. Performed By: #### L 100.0500, L500.4050 #### [facility] [address] [place], [address] Lymphocytes/100 WBC (Bld) 10.6 % Low 19-41 [facility] Comment on above: Performed By: #### L 100.0500, L500.4050 #### [facility] [address] [place], [address] MCH (RBC) [Entitic mass] 26.9 pg Low 27.0-32.0 [facility] Comment on above: Performed By: #### L 100.0500, L500.4050 #### [facility] [address] [place], [address] MCHC (RBC) [Mass/Vol] 31.0 g/dL Low 32-36 [facility] Comment on above: Performed By: #### L 100.0500, L500.4050 #### [facility] [address] [place], [address] MCV (RBC) [Entitic vol] 87.0 fL Normal 80-94 [facility] Comment on above: Performed By: #### L 100.0500, L500.4050 #### [facility] [address] [place], [address] Monocytes/100 WBC (Bld) 10.6 % High 0-10 [facility] Comment on above: Performed By: #### L 100.0500, L500.4050 #### [facility] [address] [place], [address] Neutrophils/100 WBC (Bld) 76.3 % High 47-70 [facility] Comment on above: Performed By: #### L 100.0500, L500.4050 #### [facility] [address] [place], [address] Nucleated RBC (Bld) [#/Vol] 0 10*3/uL Normal 0-5 [facility] Comment on above: Performed By: #### L 100.0500, L500.4050 #### [facility] [address] [place], [address] Platelet mean volume (Bld) [Entitic vol] 9.8 fL Normal 6.2-12.0 [facility] Comment on above: Performed By: #### L 100.0500, L500.4050 #### [facility] [address] [place], [address] Platelets (Bld) [#/Vol] 198 10*3/uL Normal 150-450 [facility] Comment on above: Performed By: #### L 100.0500, L500.4050 #### [facility] [address] [place], [address] RBC (Bld) [#/Vol] 5.31 10*6/uL Normal 4.6-6.2 [facility] Comment on above: Performed By: #### L 100.0500, L500.4050 #### [facility] [address] [place], [address] RDW SD 44.4 fl High 35.1-43.9 [facility] Comment on above: Performed By: #### L 100.0500, L500.4050 #### [facility] [address] [place], [address] WBC (Bld) [#/Vol] 8.4 10*3/uL Normal 4.4-11.0 [facility] Comment on above: Performed By: #### L 100.0500, L500.4050 #### [facility] [address] [place], [address] CTA Chest W/WO Contraston CTA Chest W/WO Contrast [facility] Imaging Services [address] [facility] [place] [address] CTA Chest W/WO Contrast MR#: [id number] Acct: [id number] Name: CARLOS ALBERTO KELLEY Jr. Rep #: [id number] : 1970 M 54 From: Shawn Lewis MD PCP: Dr. Jhonatan Garcia, Status: REG ER Study: CTA Chest W/WO Contrast Date of Exam: 12/20/24 Exam# [id number] Ordering Dr: Nguyễn Al DO PROCEDURE: CTA [...] and axilla. Normal esophagus. Upper limits of normal heart size. Small pericardial effusion. No aortic dissection. No pulmonary embolism. Central airways are patent. There is bronchial wall thickening. Tiny bilateral effusions, under aerated lung bases. No consolidation or pneumothorax. Cirrhotic liver morphology. No acute upper abdominal findings. Gynecomastia. No acute chest wall findings. CT/CTA Chest W/WO Contrast IMPRESSION: No embolism, dissection, or pneumonia. Reading Location: [place] [address] CC: Dr. Jhonatan Garcia DO; Dr. 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 Rep #: [id number] : 1970 54 From: Austin Estrada MD PCP: Dr. Jhonatan Garcia DO Status:REG ER Location: ED Assessment Plan Assessment/Plan (1) IV infiltrate: (2) Localized swelling on right hand: PLAN: Plan Patient has significant swelling in the right hand secondary to dorsal hand IV infiltrate yesterday. I am recommending that we admit the patient to monitor. Patient needs strict elevation with the hand above the heart overnight (blue arm elevator ordered). Plastics will continue to follow. He may develop a dorsal hand wound, which plastic surgery will follow along for as needed. HPI Consult Data Date of Consult: 12/20/24 HPI Narrative HPI Narrative: CARLOS ALBERTO KELLEY is a 54 M who presents for right dorsal hand swelling and pain after IV infiltrate yesterday while getting contrast solution injected for CT scan. Patient has been in a assisted recently secondary to immobility because of a right lower extremity external fixator. He presented to the emergency department yesterday for chest pain and was getting a CT scan to rule out a DVT PE. He was discharged home to the assisted last night and return today for the pain and swelling. He reports sharp severe pain in the dorsum of his right hand worsened by movements and improved with rest and elevation. The emergency department is concerned because there is some blistering on the dorsum of the hand and he has decreased range of motion. He denies having any numbness or tingling in the right upper extremity/hand/finger s. Patient has a history of atrial fibrillation and is on Coumadin. [facility] Medical History Ankle fracture, right Insomnia Obstructive sleep apnea Depression Hyperlipemia Cardiomyopathy Muscle weakness (generalized) Anxiety Asthma Type 2 diabetes mellitus COPD (chronic obstructive pulmonary disease) CHF (congestive heart failure) Glaucoma Gout Diabetes Hypertension Home Medications ???Medication ???Instructions ???Recorded ???Last Taken ???Type allopurinol 100 mg tablet 100 mg PO DAILY 10/23/22 Unknown H istory amlodipine 5 mg tablet 5 mg PO DAILY 10/23/22 Unknown His tory brimonidine 0.15 % eye drops 1 drp EACH EYE QHS 10/23/22 Unknow n History (Alphagan P) furosemide 20 mg tablet (Lasix) 20 mg PO DAILY #30 tabs 10/23/22 U nknown Rx hydrochlorothiazide 50 mg tablet 50 mg PO DAILY 10/23/22 Unknown Hi story lisinopril 40 mg tablet 40 mg PO DAILY 10/23/22 Unknown Hi story metformin 500 mg tablet,extended 500 mg PO QPM 10/23/22 Unknown His tory release 24 hr metoprolol tartrate 25 mg tablet 25 mg PO BID #60 tabs 10/23/22 Unk nown Rx omeprazole 40 mg capsule,delayed 40 mg PO DAILY 10/23/22 Unknown Hi story release rivaroxaban 20 mg tablet (Xarelto) 20 mg PO DAILY #30 tabs 10/23/22 Unknown Rx timolol maleate 0.25 % eye drops 1 drp EACH EYE DAILY 10/23/22 Unkn own History benzonatate 200 mg capsule 200 mg PO TID PRN cough #20 caps 0 02/12/23 Unknown Rx albuterol sulfate 2.5 mg/3 mL mg 12/19/24 Unknown History (0.083 %) solution for nebulization bempedoic acid 180 mg tablet 180 mg PO DAILY 12/19/24 Unknown H istory (Nexletol) dofetilide 250 mcg capsule 250 mcg PO BID 12/19/24 Unknown Hi story duloxetine 20 mg capsule,delayed 20 mg PO DAILY 12/19/24 Unknown Hi story release hydroxyzine pamoate 25 mg capsule PO 12/19/24 Unknown History metoprolol succinate 100 mg 100 mg PO BID 12/19/24 Unknown His tory tablet,extended release 24 hr potassium chloride 20 mEq 20 meq PO DAILY 12/19/24 Unknown H istory tablet,extended release(part/cryst) pravastatin 40 mg tablet 40 mg PO DAILY 12/19/24 Unknown Hi story rivaroxaban 10 mg tablet (Xarelto) 20 mg PO DAILY 12/19/24 Unknown History spironolactone 25 mg tablet 25 mg PO DAILY 12/19/24 Unknown Hi story tizanidine 2 mg tablet 2 mg PO TID 12/19/24 Unknown Histo ry tramadol 50 mg tablet 50 mg PO 4X/DAY PRN PRN pain 12/19 Unknown History trazodone 100 mg tablet 100 mg PO QHS 12/19/24 Unknown His tory Allergy/AdvReac Type Severity Reaction Status Date / Time Oyqopid-CDP-GgR Reductase Allergy Mild Hives Verified 12/20/24 13:07 Inhibitor Social History housing: assisted Smoking Status: Former smoker Physical Exam Narrative Right upper Extremity Inspection: Dorsal hand swelling with superficial blistering. No streaking erythema. Palpation: No crepitus. Compartments of the forearm and the hand are all soft. Some tenderness to palpation of the dors (more content not included)... Normal [facility] D-Dimer Quantitative (DVT/PE )on 12-20-2024 D-DIMER QUANT 0.58 FEU/ug/m Invalid Interpretation Code 0.27-0.49 [facility] Comment on above: Result Comment: D-Di joanne ELEVATED (>0.49): Additional studies and clinical assessments are indicated to conclude diagnosis of: Deep Vein Thrombosis (DVT) or Pulmonary Embolism (PE) CRITICAL VALUE CALLED TO LEXIS 12/20/24 0020 Marquez Swain. RESULTS READ BACK BY SAME. Performed By: #### L 100.0500, L500.4050 #### [facility] Laboratory [address] [place], [place], [id number] Emergency Department Summary on 12-20-2024 Emergency Department Summary [facility] Medical Records Department [address] [place] [address] Emergency Department Summary 12/20/24 MR#: [id number] Acct: [id number] Name: CARLOS ALBERTO KELLEY Jr. Rep #: [id number] : 1970 54 From: Robles Botello MD PCP: Dr. Jhonatan Garcia, DO Status:[facility] ER Location: ED HPI History of Present Illness Chief Complaint: Allergic Reaction Informant: patient and EMS Narrative Narrative: 54-year-old male presents with right hand pain, swelling, itching that started yesterday when he was here and had a CT of the chest with IV contrast, the contrast infiltrated out of the IV that was in his right hand and cause this. They then put the IV in his left hand and did the IV contrasted study, he has no symptoms in the left arm or hand at all. However in the right today it was more swollen and red and swollen all the way up to his right upper arm, he states that is actually better now, but he has blistering on the dorsum of the right hand and hand is extremely swollen. Denies any tingling or numbness peer denies any fevers or chills. He states it is painful because of the swelling but is also very itchy. [facility] Medical History Ankle fracture, right Insomnia Obstructive sleep apnea Depression Hyperlipemia Cardiomyopathy Muscle weakness (generalized) Anxiety Asthma Type 2 diabetes mellitus COPD (chronic obstructive pulmonary disease) CHF (congestive heart failure) Glaucoma Gout Diabetes Hypertension Home Medications ???Medication ???Instructions ???Recorded ???Last Taken ???Type allopurinol 100 mg tablet 100 mg PO DAILY 10/23/22 Unknown H istory amlodipine 5 mg tablet 5 mg PO DAILY 10/23/22 Unknown His tory hydrochlorothiazide 50 mg tablet 50 mg PO DAILY 10/23/22 Unknown Hi story omeprazole 40 mg capsule,delayed 40 mg PO DAILY 10/23/22 Unknown Hi story release rivaroxaban 20 mg tablet (Xarelto) 20 mg PO DAILY #30 tabs 10/23/22 Unknown Rx albuterol sulfate 2.5 mg/3 mL 2.5 mg inhalation Q6H 12/19/24 Unk nown History (0.083 %) solution for nebulization bempedoic acid 180 mg tablet 180 mg PO DAILY 12/19/24 Unknown H istory (Nexletol) dofetilide 250 mcg capsule 250 mcg PO BID 12/19/24 Unknown Hi story duloxetine 20 mg capsule,delayed 20 mg PO DAILY 12/19/24 Unknown Hi story release hydroxyzine pamoate 25 mg capsule 25 mg PO Q6H PRN anxiety 12/19/24 Unknown History metoprolol succinate 100 mg 100 mg PO BID 12/19/24 Unknown His tory tablet,extended release 24 hr potassium chloride 20 mEq 20 meq PO DAILY 12/19/24 Unknown H istory tablet,extended release(part/cryst) pravastatin 40 mg tablet 40 mg PO DAILY 12/19/24 Unknown Hi story spironolactone 25 mg tablet 25 mg PO DAILY 12/19/24 Unknown Hi story tizanidine 2 mg tablet 2 mg PO TID 12/19/24 Unknown Histo ry tramadol 50 mg tablet 50 mg PO 4X/DAY PRN PRN pain 12/19 Unknown History trazodone 100 mg tablet 100 mg PO QHS 12/19/24 Unknown His tory acetaminophen 325 mg capsule 650 mg PO Q4H PRN fever or pain Unknown History cetirizine 10 mg tablet 10 mg PO DAILY 12/20/24 Unknown Hi story dulaglutide 1.5 mg/0.5 mL 1.5 mg subcut .WEEKLY 12/20/24 Unk nown History subcutaneous pen injector (Trulicity) fluticasone 100 mcg-salmeterol 50 1 inh inhalation BID 12/20/24 Unk nown History mcg/dose blistr powdr for inhalation (Advair Diskus) fluticasone 100 mcg-salmeterol 50 2 inh inhalation BID 12/20/24 Unk nown History mcg/dose blistr powdr for inhalation (Advair Diskus) Allergy/AdvReac Type Severity Reaction Status Date / Time Hlmtndo-DUM-MfI Reductase Allergy Mild Hives Verified 12/20/24 13:07 Inhibitor Social History housing: assisted Smoking Status: Former smoker ROS ROS ED Constitutional Constitutional ED: Denies chills or fever(s) Musculoskeletal Musculoskeletal: Reports extremity pain; Denies neck pain Integumentary Reports rash; Denies Abrasions or wounds Neurologic Neurologic: Denies paresthesias or weakness EXAM Physical Exam Const Vital Signs: 12/20/24 13:05 12/20/24 15:14 Temperature 98.6 F 98.7 F Temperature Source Oral Oral Pulse Rate 72 68 Respiratory Rate 18 15 Blood Pressure 145/88 H 153/84 H Blood Pressure Mean 107 107 Pulse Ox 99 93 Oxygen Delivery Method Room Air Room Air Positive well nourished, well developed and obese General Appearance ED: well developed and NAD Nutritional Appearance: obese Neck full ROM and supple Back/Spine normal ROM and normal to inspection Extremity Extremity Narrative: Right lower extremity is in an external fixator. The right hand is so edematous that he can (more content not included)... Normal [facility] Eosinophil percentageOrdered By: Robles Botello on 12-20-2024 Eosinophils/100 WBC (Bld) 1.6 % 0-5 [facility] Erythrocyte distribution wid th ratioOrdered By: Robleselma Botello on 12-20-2024 Erythrocyte distribution width (RBC) [Ratio] 13.9 % 11.6-14.6 [facility] Erythrocyte distribution wid th standard deviationOrdered By: [facility] on 12-20-2024 Erythrocyte distribution width (RBC) [Ratio] 44.4 fl High 35.1-43.9 [facility] Glomerular filtration rate ( GFR) estimation/1.73 sq m using serum, plasma, or whole bOrdered By: Robles Botello on 12-20-2024 GFR/1.73 sq M.predicted among non-blacks MDRD (S/P/Bld) [Vol rate/Area] 97 mL/min/{1.73_m2} >60 [facility] Comment on above: mL/min/1.73m2 CKD-EP I Creatinine Equation (2020) H AND P Exam - [facility] 12-20-2024 H&P Exam - Hospitalist [facility] Medical Records Department [address] [place] [address] H P Exam - Hospitalist 12/20/24 9877 MR#: [id number] Acct: [id number] Name: CARLOS ALBERTO KELLEY Jr. Rep #: [id number] : 1970 54 From: Yaz Dee MD PCP: Dr. Jhonatan Garcia, DO Status:[facility] Location: MS3 VM792-2 HPI - General General Date of Admission: 12/20/24 Date of Service: 12/20/24 Chief Complaint: Right hand pain and swelling HPI Narrative CARLOS ALBERTO KELLEY, is [id number] male history of hypertension, gout, cardiomyopathy, GERD, diabetes, depression and anxiety, KOFFI who presented [facility] ED 12/20/2024 for right hand pain, swelling, itching that started yesterday when he was in the ED for a CT scan of the chest with IV contrast. The contrast infiltrated out of the IV so he had an IV placed in his left hand and then got the IV contrasted study. No symptoms in left hand at all. Re-presented today due to increased swelling and redness all the way up right upper arm. In the ED temp 98.6, heart rate 72 and blood pressure 145/88, respiratory 18 pulse ox 99% on room air. CBC and BMP fairly benign, hand x-ray with severe soft tissue swelling. Plastic surgery was contacted in the ED and evaluated, recommended admission for observation with aggressive elevation. Hospitalist contacted for admission. Patient evaluated at bedside. Patient reports history as above with the swelling developing since yesterday, patient has difficulty moving hand due to the swelling more so than the pain. Denies fever, reports his right foot/ankle gets little bit irritated due to the fixator that is due to come off January 01 but no other new or acute complaints [facility] Medical History Ankle fracture, right Insomnia Obstructive sleep apnea Depression Hyperlipemia Cardiomyopathy Muscle weakness (generalized) Anxiety Asthma Type 2 diabetes mellitus COPD (chronic obstructive pulmonary disease) CHF (congestive heart failure) Glaucoma Gout Diabetes Hypertension Home Medications ???Medication ???Instructions ???Recorded ???Last Taken ???Type allopurinol 100 mg tablet 100 mg PO DAILY 10/23/22 Unknown H istory amlodipine 5 mg tablet 5 mg PO DAILY 10/23/22 Unknown His tory hydrochlorothiazide 50 mg tablet 50 mg PO DAILY 10/23/22 Unknown Hi story omeprazole 40 mg capsule,delayed 40 mg PO DAILY 10/23/22 Unknown Hi story release rivaroxaban 20 mg tablet (Xarelto) 20 mg PO DAILY #30 tabs 10/23/22 Unknown Rx albuterol sulfate 2.5 mg/3 mL 2.5 mg inhalation Q6H 12/19/24 Unk nown History (0.083 %) solution for nebulization bempedoic acid 180 mg tablet 180 mg PO DAILY 12/19/24 Unknown H istory (Nexletol) dofetilide 250 mcg capsule 250 mcg PO BID 12/19/24 Unknown Hi story duloxetine 20 mg capsule,delayed 20 mg PO DAILY 12/19/24 Unknown Hi story release hydroxyzine pamoate 25 mg capsule 25 mg PO Q6H PRN anxiety 12/19/24 Unknown History metoprolol succinate 100 mg 100 mg PO BID 12/19/24 Unknown His tory tablet,extended release 24 hr potassium chloride 20 mEq 20 meq PO DAILY 12/19/24 Unknown H istory tablet,extended release(part/cryst) pravastatin 40 mg tablet 40 mg PO DAILY 12/19/24 Unknown Hi story spironolactone 25 mg tablet 25 mg PO DAILY 12/19/24 Unknown Hi story tizanidine 2 mg tablet 2 mg PO TID 12/19/24 Unknown Histo ry tramadol 50 mg tablet 50 mg PO 4X/DAY PRN PRN pain 12/19 Unknown History trazodone 100 mg tablet 100 mg PO QHS 12/19/24 Unknown His tory acetaminophen 325 mg capsule 650 mg PO Q4H PRN fever or pain Unknown History cetirizine 10 mg tablet 10 mg PO DAILY 12/20/24 Unknown Hi story dulaglutide 1.5 mg/0.5 mL 1.5 mg subcut .WEEKLY 12/20/24 Unk nown History subcutaneous pen injector (Trulicity) fluticasone 100 mcg-salmeterol 50 1 inh inhalation BID 12/20/24 Unk nown History mcg/dose blistr powdr for inhalation (Advair Diskus) fluticasone 100 mcg-salmeterol 50 2 inh inhalation BID 12/20/24 Unk nown History mcg/dose blistr powdr for inhalation (Advair Diskus) Allergy/AdvReac Type Severity Reaction Status Date / Time Nihooif-WYV-XqX Reductase Allergy Mild Hives Verified 12/20/24 13:07 Inhibitor Social History housing: assisted Smoking Status: Former smoker ROS ROS Narrative General: Denies fever/chills HENT: Denies headache, denies stuffy nose, denies sore throat EYES: Denies changes in vision Resp: Denies cough, denies shortness of breath Cardiac: Denies chest pain GI: Denies abdominal pain, denies changes in bowel, denies nausea/vomiting : Denies changes in urination Extremity: Right upper extremity swelling primarily in hand and wrist MSK: Denies weak (more content not included)... Normal [facility] Hand Min 3 Viewson Hand Min 3 Views [facility] Imaging Services [address] [place], [place] [id number] Hand Min 3 Views MR#: [id number] Acct: [id number] Name: CARLOS ALBERTO KELLEY Rep #: [id number] : 1970 M 54 From: Trace Lundberg MD PCP: Dr. Jhonatan Garcia DO Status: REG ER Study: Hand Min 3 Views Date of Exam: 12/20/24 Exam# [id number] Ordering Dr: Robles Botello MD PROCEDURE: HAND MIN 3 VIEWS 12/20/2024 REASON FOR EXAM: PAIN/SWELLING TECHNIQUE: HAND MIN 3 VIEWS COMPARISON: None FINDINGS: Bones: No fracture. Joints: Mild joint space narrowing, marginal spurring distal interphalangeal joint 2nd and 5th digit. Soft tissues: Marked swelling of the hand particularly the dorsal aspect of the hand. Likely blistering. Other: No foreign body RAD/Hand Min 3 Views IMPRESSION: Severe soft tissue swelling. No significant bony abnormality Reading Location: [id number] CC: Dr. Robles Botello MD; Dr. Jhonatan Garcia DO Warp Tying Machine Knotter: Signed Normal [facility] Hematocrit Auto (Bld) [Volum e fraction]Ordered By: Robles Botello on 12-20-2024 Hematocrit (Bld) [Volume fraction] 46.2 % 40-54 [facility] Hemoglobin measurementOrdere d By: Robles Botello on 12-20-2024 Hemoglobin (Bld) [Mass/Vol] 14.3 g/dL 13.0-16.5 [facility] Immature granulocytes/100 WB C Auto (Bld)Ordered By: Robles Botello on 12-20-2024 Immature granulocytes/100 WBC (Bld) 0.400 % 0.0-0.9 [facility] Comment on above: IG% - Immature Granu locytes (promyelocytes, myelocytes and metamyelocytes) > 1% indicates that a LEFT SHIFT is Present. MCV (mean corpuscular volume ) determinationOrdered By: Robles Botello on 12-20-2024 MCV (RBC) [Entitic vol] 87.0 fL 80-94 [facility] Mean corpuscular hemoglobin (MCH) determinationOrdered By: Robles Botello on 12-20-2024 MCH (RBC) [Entitic mass] 26.9 pg Low 27.0-32.0 [facility] Mean corpuscular hemoglobin concentration (MCHC) determinationOrdered By: Robles Botello on 12-20-2024 MCHC (RBC) [Mass/Vol] 31.0 g/dL Low 32-36 [facility] Mean platelet volume determi nationOrdered By: Robles Botello on 12-20-2024 Platelet mean volume (Bld) [Entitic vol] 9.8 fL 6.2-12.0 [facility] Monocyte percentageOrdered B y: Robles Botello on 12-20-2024 Monocytes/100 WBC (Bld) 10.6 % High 0-10 [facility] Neutrophil percentageOrdered By: Robles Botello on 12-20-2024 Neutrophils/100 WBC (Bld) 76.3 % High 47-70 [facility] Nucleated red blood cell per centageOrdered By: Robles Botello on 12-20-2024 Nucleated RBC/100 WBC (Bld) [Ratio] 0 % 0-5 [facility] Platelet countOrdered By: Otis Botello on 12-20-2024 Platelets (Bld) [#/Vol] 198 10*3/uL 150-450 [facility] Potassium measurement (mass/ volume)Ordered By: Robles Botello on 12-20-2024 Potassium (Unsp spec) [Mass/Vol] 4.2 mmol/L 3.3-5.1 [facility] RBC Auto (Bld) [#/Vol]Ordere d By: Robles Botello on 12-20-2024 RBC (Bld) [#/Vol] 5.31 10*6/uL 4.6-6.2 [facility] Serum creatinine measurement (mass/volume)Ordered By: Robles Botello on 12-20-2024 Creatinine [Mass/Vol] 0.94 mg/dL 0.70-1.20 [facility] Serum glucose measurement (m ass/volume)Ordered By: Robles Botello on 12-20-2024 Glucose [Mass/Vol] 121 mg/dL High 70-99 [facility] Serum or plasma calcium scott urement (mass/volume)Ordered By: Robles Botello on 12-20-2024 Calcium [Mass/Vol] 9.2 mg/dL 7.6-11.0 [facility] Serum or plasma urea nitroge n measurement (mass/volume)Ordered By: Robles Botello on 12-20-2024 Urea nitrogen [Mass/Vol] 12 mg/dL 4-19 [facility] Sodium levelOrdered By: Liu Botello on 12-20-2024 Sodium [Moles/Vol] 134 mmol/L 133-145 [facility] Troponin T HS 2 HRon 025 Trop T High Sen 16 ng/L Normal <=22 [facility] Comment on above: Performed By: #### L 100.0500, L500.4050 #### [facility] Laboratory [address] [place], [address] Troponin T HS 4 HRon 025 Trop T High Sen Normal <=22 [facility] Comment on above: Result Comment: [facility] DEPART[facility] ER. Performed By: #### L 100.0500, L500.4050 #### [facility] [address] [place], [address] Troponin T.cardiac [Mass/vol ume] in Serum or Plasma by High sensitivity methodOrdered By: Nguyễn Al on 12-20-2024 Troponin T.cardiac High sensitivity method [Mass/Vol] 16 ng/L <22 [facility] White blood cell (WBC) count Ordered By: Robles Botello on 12-20-2024 WBC (Bld) [#/Vol] 8.4 10*3/uL 4.4-11.0 [facility] 12 Lead EKGon 12-19-2024 12 Lead EKG [facility] Cardiovascular Services [address] [place] [address] 12 Lead EKG 12/19/24 2229 MR#: [id number] Acct: [id number] Name: CARLOS ALBERTO KELLEY Jr. Rep #: [id number] : 1970 54 From: Landry Etienne MD Attending Dr: Status: DEP ER Ordering Dr: Nguyễn Al DO Date: 12/19/24 Location: ED Sex: M C Admitted: Test Reason : CP Blood Pressure : */* mmHG Vent. Rate : 82 BPM Atrial Rate : 82 BPM P-R Int : 160 ms QRS Dur : 88 ms QT Int : 390 ms P-R-T Axes : 28 -43 25 degrees QTcB Int : 455 ms Normal sinus rhythm Left axis deviation Abnormal ECG Confirmed by LANDRY ETIENNE MD ([id number]), make up editor DONNA TOLENTINO ([id number]) on 12/23/2024 9:43:55 AM Referred By: TL Confirmed By: LANDRY ETIENNE MD 12/23/24 0943 Date Landry Etienne MD CC: Dr. Jhonatan Garcia DO; Dr. Nguyễn Al DO Signed Normal [facility] Absolute lymphocyte countOrd ered By: Nguyễn Al on 12-19-2024 Lymphocytes Auto (Unsp spec) [#/Vol] 1.20 10*3/uL 0.83-4.51 [facility] Absolute neutrophil countOrd ered By: Nguyễn Al on 12-19-2024 Neutrophils (Bld) [#/Vol] 6.1 10*3/uL 2.0-7.7 [facility] Anion gap in Serum or Plasma Ordered By: Nguyễn Al on 12-19-2024 Anion gap [Moles/Vol] 10 mmol/L 5-15 [facility] Automated lymphocyte count a s percentage of total leukocytesOrdered By: Nguyễn Al on 12-19-2024 Lymphocytes/100 WBC Auto (Unsp spec) 14.4 % Low 19-41 [facility] BUN/creatinine ratioOrdered By: Nguyễn Al on 12-19-2024 Urea nitrogen/Creatinine [Mass ratio] 13.8 mg/mg 10- [facility] Basic Metabolic Profile (BMP )on 12-19-2024 BUN/CRE 13.8 RATIO Normal - [facility] Comment on above: Performed By: #### L 100.0500, L500.4050 #### [facility] Laboratory [address] [place], [address] Calcium [Mass/Vol] 8.8 mg/dL Normal 7.6-11.0 [facility] Comment on above: Performed By: #### L 100.0500, L500.4050 #### [facility] [address] [place], [address] Chloride [Moles/Vol] 97 mmol/L Low 98-108 [facility] Comment on above: Performed By: #### L 100.0500, L500.4050 #### [facility] [address] [place], [address] CO2 [Moles/Vol] 25.7 mmol/L Normal 21.0-32.0 [facility] Comment on above: Performed By: #### L 100.0500, L500.4050 #### [facility] [address] [place], [address] Creatinine [Mass/Vol] 1.01 mg/dL Normal 0.70-1.20 [facility] Comment on above: Performed By: #### L 100.0500, L500.4050 #### [facility] [address] [place], [address] ECRCL 120.67 ml/min Normal 50-250 [facility] Comment on above: Performed By: #### L 100.0500, L500.4050 #### [facility] [address] [place], [address] GAP 10 Normal 5-15 [facility] Comment on above: Performed By: #### L 100.0500, L500.4050 #### [facility] [address] [place], [address] GFR/1.73 sq M.predicted among non-blacks MDRD (S/P/Bld) [Vol rate/Area] 89 mL/min/{1.73_m2} Normal >60 [facility] Comment on above: Result Comment: mL/m in/1.73m2 CKD-EPI Creatinine Equation (2020) Performed By: #### L 100.0500, L500.4050 #### [facility] [address] [place], [address] Glucose [Mass/Vol] 180 mg/dL High 70-99 [facility] Comment on above: Performed By: #### L 100.0500, L500.4050 #### [facility] [address] [place], [address] Potassium [Moles/Vol] 4.1 mmol/L Normal 3.3-5.1 [facility] Comment on above: Performed By: #### L 100.0500, L500.4050 #### [facility] [address] [place], [address] Sodium [Moles/Vol] 133 mmol/L Normal 133-145 [facility] Comment on above: Performed By: #### L 100.0500, L500.4050 #### [facility] [address] [place], [address] Urea nitrogen [Mass/Vol] 14 mg/dL Normal 4-19 [facility] Comment on above: Performed By: #### L 100.0500, L500.4050 #### [facility] [address] [place], [address] Basophil percentageOrdered B y: Nguyễn Al on 12-19-2024 Basophils/100 WBC (Bld) 0.5 % 0-1 [facility] CBC W/Diff, Automatedon 11-27 Absolute Lymph 1.20 X10 3/uL Normal 0.83-4.51 [facility] Comment on above: Performed By: #### L 100.0500, L500.4050 #### [facility] [address] [place], [address] Absolute Neut 6.1 X10 3/uL Normal 2.0-7.7 [facility] Comment on above: Performed By: #### L 100.0500, L500.4050 #### [facility] [address] [place], [address] Basophils/100 WBC (Bld) 0.5 % Normal 0-1 [facility] Comment on above: Performed By: #### L 100.0500, L500.4050 #### [facility] [address] [place], [address] Eosinophils/100 WBC (Bld) 1.3 % Normal 0-5 [facility] Comment on above: Performed By: #### L 100.0500, L500.4050 #### [facility] [address] [place], [address] Erythrocyte distribution width (RBC) [Ratio] 13.9 % Normal 11.6-14.6 [facility] Comment on above: Performed By: #### L 100.0500, L500.4050 #### [facility] [address] [place], [address] Hematocrit (Bld) [Volume fraction] 44.2 % Normal 40-54 [facility] Comment on above: Performed By: #### L 100.0500, L500.4050 #### [facility] [address] [place], [address] Hemoglobin (Bld) [Mass/Vol] 13.7 g/dL Normal 13.0-16.5 [facility] Comment on above: Performed By: #### L 100.0500, L500.4050 #### [facility] [address] [place], [address] IG% 0.200 Normal 0.0-0.9 [facility] Comment on above: Result Comment: IG% - Immature Granulocytes (promyelocytes, myelocytes and metamyelocytes) > 1% indicates that a LEFT SHIFT is Present. Performed By: #### L 100.0500, L500.4050 #### [facility] [address] [place], [address] Lymphocytes/100 WBC (Bld) 14.4 % Low 19-41 [facility] Comment on above: Performed By: #### L 100.0500, L500.4050 #### [facility] [address] [place], [address] MCH (RBC) [Entitic mass] 27.2 pg Normal 27.0-32.0 [facility] Comment on above: Performed By: #### L 100.0500, L500.4050 #### [facility] [facility] [address] [place], [address] MCHC (RBC) [Mass/Vol] 31.0 g/dL Low 32-36 [facility] Comment on above: Performed By: #### L 100.0500, L500.4050 #### [facility] [address] [place], [address] MCV (RBC) [Entitic vol] 87.7 fL Normal 80-94 [facility] Comment on above: Performed By: #### L 100.0500, L500.4050 #### [facility] [address] [place], [address] Monocytes/100 WBC (Bld) 10.6 % High 0-10 [facility] Comment on above: Performed By: #### L 100.0500, L500.4050 #### [facility] [address] [place], [address] Neutrophils/100 WBC (Bld) 73.0 % High 47-70 [facility] Comment on above: Performed By: #### L 100.0500, L500.4050 #### [facility] [address] [place], [address] Nucleated RBC (Bld) [#/Vol] 0 10*3/uL Normal 0-5 [facility] Comment on above: Performed By: #### L 100.0500, L500.4050 #### [facility] [address] [place], [address] Platelet mean volume (Bld) [Entitic vol] 9.8 fL Normal 6.2-12.0 [facility] Comment on above: Performed By: #### L 100.0500, L500.4050 #### [facility] [address] [place], [address] Platelets (Bld) [#/Vol] 177 10*3/uL Normal 150-450 [facility] Comment on above: Performed By: #### L 100.0500, L500.4050 #### [facility] [address] [place], [address] RBC (Bld) [#/Vol] 5.04 10*6/uL Normal 4.6-6.2 [facility] Comment on above: Performed By: #### L 100.0500, L500.4050 #### [facility] [address] [place], [address] RDW SD 44.8 fl High 35.1-43.9 [facility] Comment on above: Performed By: #### L 100.0500, L500.4050 #### [facility] [address] [place], [address] WBC (Bld) [#/Vol] 8.4 10*3/uL Normal 4.4-11.0 [facility] Comment on above: Performed By: #### L 100.0500, L500.4050 #### [facility] [address] [place], [address] Carbon dioxide, total [Moles /volume] in Central venous bloodOrdered By: Nguyễn Al on 12-19-2024 CO2 [Moles/Vol] 25.7 mmol/L 21.0-32.0 [facility] Chest 1 View (Portable)on Chest 1 View (Portable) [facility] Imaging Services [address] [place] [address] Chest 1 View (Portable) MR#: [id number] Acct: [id number] Name: CARLOS ALBERTO KELLEY Jr. Rep #: [id number] : 1970 M 54 From: Jordan Avalos MD PCP: STACEY Pena Status: PRE ER Study: Chest 1 View (Portable) Date of Exam: 12/19/24 Exam# [id number] Ordering Dr: Nguyễn Al DO PROCEDURE: CHEST [...] atelectasis, or edema also possible. Reading Location: [facility] CC: STACEY Correa; Dr. Nguyễn Al DO Warp Tying Machine Knotter: Signed Normal [facility] Chloride assayOrdered By: Shankar Al on 12-19-2024 Chloride [Moles/Vol] 97 mmol/L Low 98-108 [facility] Emergency Department Summary on 12-19-2024 Emergency Department Summary [facility] Medical Records Department [address] [place] [address] Emergency Department Summary 12/19/24 MR#: [id number] Acct: [id number] Name: CARLOS ALBERTO KELLEY . Rep #: [id number] : 1970 54 From: Nguyễn Tavera PCP: Dr. Jhonatan Garcia DO Status:DEP ER Location: ED HPI History of Present Illness Chief Complaint: Chest Pain Informant: patient Narrative Narrative: Brought in by EMS [facility] chest pain at rest. Intermittent sharp sensation and reports dyspnea with it. No recent cough. No nausea. No radicular symptoms. History of paroxysmal A-fib on Coumadin. 8 weeks ago right ankle fracture dislocation with current Ex-Fix. He was manage at [place]. He has been at the facility for 2 weeks. Decreased mobility. Diabetes hypertension GERD history. Denies history of MIs, no history of coronary stents.COPD and asthma history. Currently mild symptoms. Placed on oxygen by EMS. Does not wear home oxygen. There is no reported hypoxia. Prior Similar Symptoms: No CVD Risk Factors: Positive for Hypertension and Diabetes PE Risk Factors: Positive for Recent Travel/Surgery; Negative for Recent Immobilization, Prior DVT or PE or Cancer [facility] Medical History Ankle fracture, right Insomnia Obstructive sleep apnea Depression Hyperlipemia Cardiomyopathy Muscle weakness (generalized) Anxiety Asthma Type 2 diabetes mellitus COPD (chronic obstructive pulmonary disease) CHF (congestive heart failure) Glaucoma Gout Diabetes Hypertension Home Medications ???Medication ???Instructions ???Recorded ???Last Taken ???Type allopurinol 100 mg tablet 100 mg PO DAILY 10/23/22 Unknown H istory amlodipine 5 mg tablet 5 mg PO DAILY 10/23/22 Unknown His tory brimonidine 0.15 % eye drops 1 drp EACH EYE QHS 10/23/22 Unknow n History (Alphagan P) furosemide 20 mg tablet (Lasix) 20 mg PO DAILY #30 tabs 10/23/22 U nknown Rx hydrochlorothiazide 50 mg tablet 50 mg PO DAILY 10/23/22 Unknown Hi story lisinopril 40 mg tablet 40 mg PO DAILY 10/23/22 Unknown Hi story metformin 500 mg tablet,extended 500 mg PO QPM 10/23/22 Unknown His tory release 24 hr metoprolol tartrate 25 mg tablet 25 mg PO BID #60 tabs 10/23/22 Unk nown Rx omeprazole 40 mg capsule,delayed 40 mg PO DAILY 10/23/22 Unknown Hi story release rivaroxaban 20 mg tablet (Xarelto) 20 mg PO DAILY #30 tabs 10/23/22 Unknown Rx timolol maleate 0.25 % eye drops 1 drp EACH EYE DAILY 10/23/22 Unkn own History benzonatate 200 mg capsule 200 mg PO TID PRN cough #20 caps 0 02/12/23 Unknown Rx albuterol sulfate 2.5 mg/3 mL mg 12/19/24 Unknown History (0.083 %) solution for nebulization bempedoic acid 180 mg tablet 180 mg PO DAILY 12/19/24 Unknown H istory (Nexletol) dofetilide 250 mcg capsule 250 mcg PO BID 12/19/24 Unknown Hi story duloxetine 20 mg capsule,delayed 20 mg PO DAILY 12/19/24 Unknown Hi story release hydroxyzine pamoate 25 mg capsule PO 12/19/24 Unknown History metoprolol succinate 100 mg 100 mg PO BID 12/19/24 Unknown His tory tablet,extended release 24 hr potassium chloride 20 mEq 20 meq PO DAILY 12/19/24 Unknown H istory tablet,extended release(part/cryst) pravastatin 40 mg tablet 40 mg PO DAILY 12/19/24 Unknown Hi story rivaroxaban 10 mg tablet (Xarelto) 20 mg PO DAILY 12/19/24 Unknown History spironolactone 25 mg tablet 25 mg PO DAILY 12/19/24 Unknown Hi story tizanidine 2 mg tablet 2 mg PO TID 12/19/24 Unknown Histo ry tramadol 50 mg tablet 50 mg PO 4X/DAY PRN PRN pain 12/19 Unknown History trazodone 100 mg tablet 100 mg PO QHS 12/19/24 Unknown His tory Allergy/AdvReac Type Severity Reaction Status Date / Time Evbwrgg-KIF-MyO Reductase Allergy Mild Hives Verified 12/19/24 22:20 Inhibitor Family History no significant family his Social History Smoking Status: Former smoker ROS ROS ED Constitutional Constitutional ED: Denies chills, fever(s) or sweats ENT ENT ED: Denies sore throat Cardiovascular Cardiovascular: Reports chest pain; Denies leg edema, palpitations or racing heartbeat Respiratory/Chest Respiratory/Chest: Reports dyspnea; Denies cough or dyspnea on exertion Gastrointestinal Gastrointestinal: Denies abdominal pain, diarrhea, nausea or vomiting Genitourinary Genitourinary ED: Denies dysuria, hematuria or urinary frequency Musculoskeletal Musculoskeletal: Denies back pain, extremity pain or neck pain Integumentary Denies rash or wounds Neurologic Neurologic: Denies headache(s), paresthesias or weakness EXAM Physical Exam Const Vital Signs: 12/19/24 22:20 12/19/24 22:29 12/19/24 22:30 Temperature 98.3 F 98.3 F Temperature Sour (more content not included)... Normal [facility] Eosinophil percentageOrdered By: Nguyễn Al on 12-19-2024 Eosinophils/100 WBC (Bld) 1.3 % 0-5 [facility] Erythrocyte distribution wid th ratioOrdered By: Nguyễn Al on 12-19-2024 Erythrocyte distribution width (RBC) [Ratio] 13.9 % 11.6-14.6 [facility] Erythrocyte distribution wid th standard deviationOrdered By: Nguyễn Al on 12-19-2024 Erythrocyte distribution width (RBC) [Ratio] 44.8 fl High 35.1-43.9 [facility] Glomerular filtration rate ( GFR) estimation/1.73 sq m using serum, plasma, or whole bOrdered By: Nguyễn Al on 12-19-2024 GFR/1.73 sq M.predicted among non-blacks MDRD (S/P/Bld) [Vol rate/Area] 89 mL/min/{1.73_m2} >60 [facility] Comment on above: mL/min/1.73m2 CKD-EP I Creatinine Equation (2020) Hematocrit Auto (Bld) [Volum e fraction]Ordered By: Nguyễn Al on 12-19-2024 Hematocrit (Bld) [Volume fraction] 44.2 % 40-54 [facility] Hemoglobin measurementOrdere d By: Nguyễn Al on 12-19-2024 Hemoglobin (Bld) [Mass/Vol] 13.7 g/dL 13.0-16.5 [facility] Immature granulocytes/100 WB C Auto (Bld)Ordered By: Nguyễn Al on 12-19-2024 Immature granulocytes/100 WBC (Bld) 0.200 % 0.0-0.9 [facility] Comment on above: IG% - Immature Granu locytes (promyelocytes, myelocytes and metamyelocytes) > 1% indicates that a LEFT SHIFT is Present. International normalized rat io (INR) calculationOrdered By: Nguyễn Al on 12-19-2024 INR Coag (Bld) [Relative time] 1.5 {INR} [facility] L501.4021on 12-19-2024 Trop T High Sen 11 ng/L Normal <=22 [facility] Comment on above: Performed By: #### L 100.0500, L500.4050 #### [facility] [address] [place], [place], [id number] MCV (mean corpuscular volume ) determinationOrdered By: Nguyễn Al on 12-19-2024 MCV (RBC) [Entitic vol] 87.7 fL 80-94 [facility] Mean corpuscular hemoglobin (MCH) determinationOrdered By: Nguyễn Al on 12-19-2024 MCH (RBC) [Entitic mass] 27.2 pg 27.0-32.0 [facility] Mean corpuscular hemoglobin concentration (MCHC) determinationOrdered By: Nguyễn Al on 12-19-2024 MCHC (RBC) [Mass/Vol] 31.0 g/dL Low 32-36 [facility] Mean platelet volume determi nationOrdered By: Nguyễn Al on 12-19-2024 Platelet mean volume (Bld) [Entitic vol] 9.8 fL 6.2-12.0 [facility] Monocyte percentageOrdered B y: Nguyễn Al on 12-19-2024 Monocytes/100 WBC (Bld) 10.6 % High 0-10 [facility] Neutrophil percentageOrdered By: Nguyễn Al on 12-19-2024 Neutrophils/100 WBC (Bld) 73.0 % High 47-70 [facility] Nucleated red blood cell per centageOrdered By: Nguyễn Al on 12-19-2024 Nucleated RBC/100 WBC (Bld) [Ratio] 0 % 0-5 [facility] Platelet countOrdered By: Shankar Al on 12-19-2024 Platelets (Bld) [#/Vol] 177 10*3/uL 150-450 [facility] Potassium measurement (mass/ volume)Ordered By: Nguyễn Al on 12-19-2024 Potassium (Unsp spec) [Mass/Vol] 4.1 mmol/L 3.3-5.1 [facility] Prothrombin Time w/INRon INR Coag (PPP) [Relative time] 1.5 {INR} Normal [facility] Comment on above: Performed By: #### L 100.0500, L500.4050 #### [facility] [address] [place], [place], [id number] PT Coag (PPP) [Time] 18.1 s High 11.7-14.9 [facility] Comment on above: Performed By: #### L 100.0500, L500.4050 #### [facility] [address] [place], [address] Prothrombin timeOrdered By: Nguyễn Herberth on 12-19-2024 PT Coag (PPP) [Time] 18.1 s High 11.7-14.9 [facility] RBC Auto (Bld) [#/Vol]Ordere d By: Nguyễn Al on 12-19-2024 RBC (Bld) [#/Vol] 5.04 10*6/uL 4.6-6.2 [facility] Serum creatinine measurement (mass/volume)Ordered By: Nguyễn Le on 12-19-2024 Creatinine [Mass/Vol] 1.01 mg/dL 0.70-1.20 [facility] Serum glucose measurement (m ass/volume)Ordered By: Nguyễn Al on 12-19-2024 Glucose [Mass/Vol] 180 mg/dL High 70-99 [facility] Serum or plasma calcium scott urement (mass/volume)Ordered By: Nguyễn Al on 12-19-2024 Calcium [Mass/Vol] 8.8 mg/dL 7.6-11.0 [facility] Serum or plasma urea nitroge n measurement (mass/volume)Ordered By: Nguyễn Al on 12-19-2024 Urea nitrogen [Mass/Vol] 14 mg/dL 4-19 [facility] Sodium levelOrdered By: Nguyễn Al on 12-19-2024 Sodium [Moles/Vol] 133 mmol/L 133-145 [facility] Troponin T.cardiac [Mass/vol ume] in Serum or Plasma by High sensitivity methodOrdered By: Nguyễn Al on 12-19-2024 Troponin T.cardiac High sensitivity method [Mass/Vol] 11 ng/L <22 [facility] White blood cell (WBC) count Ordered By: Nguyễn Al on 12-19-2024 WBC (Bld) [#/Vol] 8.4 10*3/uL 4.4-11.0 [facility] .GFRon 12-13-2024 Estimated Glomerular Filtration Rate 109 ml/min/1.73sqm Normal [facility] Comment on above: Result Comment: [...] GFR, ADIFF, DIMER, CBC, PBNP, TROPHS #### [address] [address] BMPon 12-13-2024 BUN/Creatinine Ratio 29 ratio High 7-27 [facility] Comment on above: Order Comment: Speci men hemolyzed. Notified Romay @12/13/2024 09:23:59 EDT BP Performed By: #### A ELY REYES, BMP, MG, GFR, ADIFF, DIMER, CBC, PBNP, TROPHS #### [address] [address] Calcium [Mass/Vol] 8.8 mg/dL Normal 8.4-10.2 [facility] Comment on above: Order Comment: Speci men hemolyzed. Notified Kalcey @12/13/2024 09:23:59 EDT BP Performed By: #### A ELY REYES, BMP, MG, GFR, ADIFF, DIMER, CBC, PBNP, TROPHS #### [address] [address] Chloride [Moles/Vol] 102 mmol/L Normal 98-107 [facility] Comment on above: Order Comment: Speci men hemolyzed. Notified Kalcey @12/13/2024 09:23:59 EDT BP Performed By: #### A ELY REYES, BMP, MG, GFR, ADIFF, DIMER, CBC, PBNP, TROPHS #### [address] [address] CO2 [Moles/Vol] 32 mmol/L High 22-29 [facility] Comment on above: Order Comment: Speci men hemolyzed. Notified Crazideacey @12/13/2024 09:23:59 EDT BP Performed By: #### A ELY REYES, BMP, MG, GFR, ADIFF, DIMER, CBC, PBNP, TROPHS #### [address] [address] Creatinine [Mass/Vol] 0.73 mg/dL Normal 0.67-1.17 [facility] Comment on above: Order Comment: Speci men hemolyzed. Notified Crazideacey @12/13/2024 09:23:59 EDT BP Performed By: #### A ELY REYES, BMP, MG, GFR, ADIFF, DIMER, CBC, PBNP, TROPHS #### [address] [address] Electrolyte Balance 4.0 mEq/L Normal 4.0-15.0 [facility] Comment on above: Order Comment: Speci men hemolyzed. Notified Damon @12/13/2024 09:23:59 EDT BP Performed By: #### A ELY REYES, BMP, MG, GFR, ADIFF, DIMER, CBC, PBNP, TROPHS #### [address] [address] Glucose [Mass/Vol] 137 mg/dL High 70-105 [facility] Comment on above: Order Comment: Speci men hemolyzed. Notified Damon @12/13/2024 09:23:59 EDT BP Performed By: #### A ELY REYES, BMP, MG, GFR, ADIFF, DIMER, CBC, PBNP, TROPHS #### [address] [address] Potassium [Moles/Vol] 3.9 mmol/L Normal 3.5-5.1 [facility] Comment on above: Order Comment: Speci men hemolyzed. Notified Romay @12/13/2024 09:23:59 EDT BP Performed By: #### A ELY REYES, BMP, MG, GFR, ADIFF, DIMER, CBC, PBNP, TROPHS #### [address] [address] Sodium [Moles/Vol] 138 mmol/L Normal 136-145 [facility] Comment on above: Order Comment: Speci men hemolyzed. Notified [employer] @12/13/2024 09:23:59 EDT BP Performed By: #### A ELY REYES, BMP, MG, GFR, ADIFF, DIMER, CBC, PBNP, TROPHS #### [address] [address] Urea nitrogen [Mass/Vol] 21 mg/dL High 12-13 [facility] Comment on above: Order Comment: Speci men hemolyzed. Notified Damon @12/13/2024 09:23:59 EDT BP Performed By: #### A ERIC, MDW, BMP, MG, GFR, ADIFF, DIMER, CBC, PBNP, TROPHS #### [facility] [address] [place], [place] [address] LABORATORYOrdered By: SYSTEM SYSTEM on 12-13-2024 Calcium [...] 12-13-2024 Magnesium [Mass/Vol] 1.7 mg/dL Low 1.8-2.4 [facility] Comment on above: Performed By: #### A ELY REYES, BMP, MG, GFR, ADIFF, DIMER, CBC, PBNP, TROPHS #### [address] [address] .GFRon 12-12-2024 Estimated Glomerular Filtration Rate 111 ml/min/1.73sqm Normal [facility] Comment on above: Result Comment: [...] GFR, ADIFF, DIMER, CBC, PBNP, TROPHS #### [address] [address] BMPon 12-12-2024 BUN/Creatinine Ratio 22 ratio Normal 7-27 [facility] Comment on above: Performed By: #### A ELY REYES, BMP, MG, GFR, ADIFF, DIMER, CBC, PBNP, TROPHS #### [address] [address] Calcium [Mass/Vol] 9.2 mg/dL Normal 8.4-10.2 [facility] Comment on above: Performed By: #### A ELY REYES, BMP, MG, GFR, ADIFF, DIMER, CBC, PBNP, TROPHS #### [address] [address] Chloride [Moles/Vol] 103 mmol/L Normal 98-107 [facility] Comment on above: Performed By: #### A ELY REYES, BMP, MG, GFR, ADIFF, DIMER, CBC, PBNP, TROPHS #### [address] [address] CO2 [Moles/Vol] 32 mmol/L High 22-29 [facility] Comment on above: Performed By: #### A ELY REYES, BMP, MG, GFR, ADIFF, DIMER, CBC, PBNP, TROPHS #### [place] [id number] Creatinine [Mass/Vol] 0.69 mg/dL Normal 0.67-1.17 [facility] Comment on above: Performed By: #### A ELY REYES, JULIÁN, MG, GFR, ADIFF, DIMER, CBC, PBNP, TROPHS #### [address] [address] Electrolyte Balance 7.0 mEq/L Normal 4.0-15.0 [facility] Comment on above: Performed By: #### A ELY REYES, JULIÁN, MG, GFR, ADIFF, DIMER, CBC, PBNP, TROPHS #### [address] [address] Glucose [Mass/Vol] 115 mg/dL High 70-105 [facility] Comment on above: Performed By: #### A ELY REYES, BMP, MG, GFR, ADIFF, DIMER, CBC, PBNP, TROPHS #### [address] [address] Potassium [Moles/Vol] 3.8 mmol/L Normal 3.5-5.1 [facility] Comment on above: Performed By: #### A ELY REYES, BMP, MG, GFR, ADIFF, DIMER, CBC, PBNP, TROPHS #### [address] [address] Sodium [Moles/Vol] 142 mmol/L Normal 136-145 [facility] Comment on above: Performed By: #### A ELY REYES, BMP, MG, GFR, ADIFF, DIMER, CBC, PBNP, TROPHS #### [place] [address] [place], [place] [address] Urea nitrogen [Mass/Vol] 15 mg/dL Normal 7-18 [facility] Comment on above: Performed By: #### A ELY REYES, BMP, MG, GFR, ADIFF, DIMER, CBC, PBNP, TROPHS #### [place] [address] [place], [place] [address] LABORATORYOrdered By: SYSTEM SYSTEM on 12-12-2024 Calcium [...] a homogeneous sandwich chemiluminescent immunoassay based on ISpeak technology. Urea nitrogen [Mass/Vol] 15 mg/dL Normal 7 - 18 mg/dL AO ADM SS Urea nitrogen/Creatinine [Mass ratio] 22 ratio Normal 7 - 27 ratio AO ADM SS MGon 12-12-2024 Magnesium [Mass/Vol] 2.0 mg/dL Normal 1.8-2.4 [facility] Comment on above: Performed By: #### A ELY REYES, BMP, MG, GFR, ADIFF, DIMER, CBC, PBNP, TROPHS #### [place] [address] [place], [place] [address] TROPHSon 12-12-2024 High Sensitivity Troponin I 12 ng/L Normal 0-76 [facility] Comment on above: Result Comment: High Sensitive Troponin I Reference Ranges: Female: 0-51 ng/L Male: 0-76 ng/L Testing performed on Dimension EXL using a homogeneous sandwich chemiluminescent immunoassay based on LOCI technology. Performed By: #### A ELY REYES, BMP, MG, GFR, ADIFF, DIMER, CBC, PBNP, TROPHS #### [place] [address] [place], [place] [address] XR CHEST 1 VIEWon 12-12-2024 XR CHEST [...] Date: 12/12/2024 6:38:29 AM Ordering Provider: VENITA Kate [facility] .Auto Diffon 12-11-2024 Basophil, Absolute 0.0 10 3/mcL Normal 0.0-0.3 [facility] Comment on above: Performed By: #### A ELY REYES, BMP, MG, GFR, ADIFF, DIMER, CBC, PBNP, TROPHS #### [address] [address] Basophils/100 WBC (Bld) 0.5 % Normal 0.0-2.5 [facility] Comment on above: Performed By: #### A ELY REYES, BMP, MG, GFR, ADIFF, DIMER, CBC, PBNP, TROPHS #### [address] [address] Eosinophil, Absolute 0.1 10 3/mcL Normal 0.0-0.7 [facility] Comment on above: Performed By: #### A ELY REYES, BMP, MG, GFR, ADIFF, DIMER, CBC, PBNP, TROPHS #### [address] [address] Eosinophils/100 WBC (Bld) 1.3 % Normal 0.0-6.0 [facility] Comment on above: Performed By: #### A ELY REYES, BMP, MG, GFR, ADIFF, DIMER, CBC, PBNP, TROPHS #### [address] [address] Lymphocyte, Absolute 0.8 10 3/mcL Low 0.9-4.3 [facility] Comment on above: Performed By: #### A ELY REYES, BMP, MG, GFR, ADIFF, DIMER, CBC, PBNP, TROPHS #### [address] [address] Lymphocytes/100 WBC (Bld) 9.5 % Low 20.0-40.0 [facility] Comment on above: Performed By: #### A ELY REYES, BMP, MG, GFR, ADIFF, DIMER, CBC, PBNP, TROPHS #### [address] [address] Monocyte, Absolute 0.9 10 3/mcL Normal 0.1-1.4 [facility] Comment on above: Performed By: #### A ELY REYES, BMP, MG, GFR, ADIFF, DIMER, CBC, PBNP, TROPHS #### [address] [address] Monocytes/100 WBC (Bld) 10.0 % Normal 2.0-13.0 [facility] Comment on above: Performed By: #### A ELY REYES, JULIÁN, MG, GFR, ADIFF, DIMER, CBC, PBNP, TROPHS #### [address] [address] Neutrophils/100 WBC (Bld) 78.7 % High 50.0-75.0 [facility] Comment on above: Performed By: #### A ELY REYES, JULIÁN, MG, GFR, ADIFF, DIMER, CBC, PBNP, TROPHS #### [address] [address] .GFRon 12-11-2024 Estimated Glomerular Filtration Rate 105 ml/min/1.73sqm Normal [facility] Comment on above: Result Comment: [...] GFR, ADIFF, DIMER, CBC, PBNP, TROPHS #### [place] [address] .MDWon 12-11-2024 Monocyte Distribution Width 18.16 Normal 0.00-20.00 [facility] Comment on above: Result Comment: For ED adult patients suspected of sepsis, MDW<=20.0 does not rule out sepsis or risk of sepsis Performed By: #### A ELY REYES, BMP, MG, GFR, ADIFF, DIMER, CBC, PBNP, TROPHS #### [place] [address] .NEUABSon 12-11-2024 Neutrophil, Absolute 6.9 10 3/mcL Normal 2.3-8.1 [facility] Comment on above: Performed By: #### A ELY REYES, BMP, MG, GFR, ADIFF, DIMER, CBC, PBNP, TROPHS #### [place] [address] CBCon 12-11-2024 Erythrocyte distribution width (RBC) [Ratio] 14.9 % Normal 11.5-15.5 [facility] Comment on above: Performed By: #### A ELY REYES, BMP, MG, GFR, ADIFF, DIMER, CBC, PBNP, TROPHS #### [place] [address] Hematocrit (Bld) [Volume fraction] 43.0 % Normal 40.0-52.0 [facility] Comment on above: Performed By: #### A ELY REYES, BMP, MG, GFR, ADIFF, DIMER, CBC, PBNP, TROPHS #### [place] [address] Hgb 14.0 G/dL Normal 13.0-17.5 [facility] Comment on above: Performed By: #### A ELY REYES, BMP, MG, GFR, ADIFF, DIMER, CBC, PBNP, TROPHS #### [place] [address] MCH (RBC) [Entitic mass] 28.2 pg Normal 27.0-33.0 [facility] Comment on above: Performed By: #### A ELY REYES, BMP, MG, GFR, ADIFF, DIMER, CBC, PBNP, TROPHS #### [address] [address] MCHC 32.7 G/dL Normal 32.0-36.0 [facility] Comment on above: Performed By: #### A ELY REYES, BMP, MG, GFR, ADIFF, DIMER, CBC, PBNP, TROPHS #### [address] [address] MCV (RBC) [Entitic vol] 86.1 fL Normal 81.0-100.0 [facility] Comment on above: Performed By: #### A ELY REYES, BMP, MG, GFR, ADIFF, DIMER, CBC, PBNP, TROPHS #### [address] [address] Platelet 208 10 3/mcL Normal 150-450 [facility] Comment on above: Performed By: #### A ELY REYES, JULIÁN, MG, GFR, ADIFF, DIMER, CBC, PBNP, TROPHS #### [address] [address] Platelet mean volume (Bld) [Entitic vol] 7.9 fL Normal 6.4-10.5 [facility] Comment on above: Performed By: #### A ELY REYES, BMP, MG, GFR, ADIFF, DIMER, CBC, PBNP, TROPHS #### [address] [address] RBC 4.99 10 6/mcL Normal 4.50-6.00 [facility] Comment on above: Performed By: #### A ELY REYES, BMP, MG, GFR, ADIFF, DIMER, CBC, PBNP, TROPHS #### [address] [address] WBC 8.8 10 3/mcL Normal 4.5-10.8 [facility] Comment on above: Performed By: #### A ELY REYES, BMP, MG, GFR, ADIFF, DIMER, CBC, PBNP, TROPHS #### [address] [address] CMPon 12-11-2024 Albumin Level 2.8 G/dL Low 3.5-5.0 [facility] [facility] Comment on above: Performed By: #### A ELY REYES, BMP, MG, GFR, ADIFF, DIMER, CBC, PBNP, TROPHS #### [address] [address] Albumin/Globulin [Mass ratio] 0.6 {ratio} Low 1.1-2.5 [facility] Comment on above: Performed By: #### A ELY REYES, BMP, MG, GFR, ADIFF, DIMER, CBC, PBNP, TROPHS #### [place] [address] ALP [Catalytic activity/Vol] 100 U/L Normal 40-135 [facility] Comment on above: Performed By: #### A ELY REYES, BMP, MG, GFR, ADIFF, DIMER, CBC, PBNP, TROPHS #### [address] [address] ALT [Catalytic activity/Vol] 18 U/L Normal 16-63 [facility] Comment on above: Performed By: #### A ELY REYES, BMP, MG, GFR, ADIFF, DIMER, CBC, PBNP, TROPHS #### [address] [address] AST [Catalytic activity/Vol] 8 U/L Low 10-40 [facility] Comment on above: Performed By: #### A ELY REYES, BMP, MG, GFR, ADIFF, DIMER, CBC, PBNP, TROPHS #### [place] [id number] Bili Total 0.3 mg/dL Normal 0.2-1.0 [facility] Comment on above: Result Comment: Use of this assay is not recommended for patients undergoing treatment with eltrombopag due to the potential for falsely elevated results. Performed By: #### A ELY REYES, BMP, MG, GFR, ADIFF, DIMER, CBC, PBNP, TROPHS #### [place] [address] BUN/Creatinine Ratio 12 ratio Normal 7-27 [facility] Comment on above: Performed By: #### A ELY REYES, BMP, MG, GFR, ADIFF, DIMER, CBC, PBNP, TROPHS #### [place] [address] Calcium [Mass/Vol] 8.9 mg/dL Normal 8.4-10.2 [facility] Comment on above: Performed By: #### A ELY REYES, BMP, MG, GFR, ADIFF, DIMER, CBC, PBNP, TROPHS #### [place] [address] Chloride [Moles/Vol] 98 mmol/L Normal 98-107 [facility] Comment on above: Performed By: #### A ELY REYES, BMP, MG, GFR, ADIFF, DIMER, CBC, PBNP, TROPHS #### [place] [id number] CO2 [Moles/Vol] 32 mmol/L High 22-29 [facility] Comment on above: Performed By: #### A ELY REYES, BMP, MG, GFR, ADIFF, DIMER, CBC, PBNP, TROPHS #### [place] [address] Creatinine [Mass/Vol] 0.82 mg/dL Normal 0.67-1.17 [facility] Comment on above: Performed By: #### A ELY REYES, BMP, MG, GFR, ADIFF, DIMER, CBC, PBNP, TROPHS #### [place] [address] Electrolyte Balance 4.0 mEq/L Normal 4.0-15.0 [facility] Comment on above: Performed By: #### A ELY REYES, BMP, MG, GFR, ADIFF, DIMER, CBC, PBNP, TROPHS #### [address] [address] Globulin 4.6 G/dL High 2.7-4.4 [facility] Comment on above: Performed By: #### A ELY REYES, BMP, MG, GFR, ADIFF, DIMER, CBC, PBNP, TROPHS #### [address] [address] Glucose [Mass/Vol] 165 mg/dL High 70-105 [facility] Comment on above: Performed By: #### A ELY REYES, BMP, MG, GFR, ADIFF, DIMER, CBC, PBNP, TROPHS #### [address] [address] Potassium [Moles/Vol] 3.6 mmol/L Normal 3.5-5.1 [facility] Comment on above: Performed By: #### A ELY REYES, BMP, MG, GFR, ADIFF, DIMER, CBC, PBNP, TROPHS #### [address] [address] Sodium [Moles/Vol] 134 mmol/L Low 136-145 [facility] Comment on above: Performed By: #### A ELY REYES, BMP, MG, GFR, ADIFF, DIMER, CBC, PBNP, TROPHS #### [address] [address] Total Protein 7.4 G/dL Normal 6.4-8.2 [facility] Comment on above: Performed By: #### A ELY REYES, BMP, MG, GFR, ADIFF, DIMER, CBC, PBNP, TROPHS #### [place] [address] Urea nitrogen [Mass/Vol] 10 mg/dL Normal 7-18 [facility] Comment on above: Performed By: #### A ELY REYES, BMP, MG, GFR, ADIFF, DIMER, CBC, PBNP, TROPHS #### [address] [address] [address] ANGIOGRAPHY CHEST W/CONTR [place] 12-11-2024 CT [...] 3:29:36 AM Ordering Provider: DELORES MURO Normal [facility] DIMERon 12-11-2024 D-Dimer 593 ng/mL D-DU High 0-230 [facility] Comment on above: Result Comment: The result [...] ADIFF, DIMER, CBC, PBNP, TROPHS #### [place] [id number] [place] [address] LABORATORYOrdered By: SYSTEM SYSTEM on 12-11-2024 Troponin I.cardiac DL <= 0.01 ng/mL [Mass/Vol] 10 ng/L Normal 0 - 76 ng/L AO ADM SS Comment on above: Interpretive Data: H igh Sensitive Troponin I Reference Ranges: Female: 0-51 ng/L Male: 0-76 ng/L Testing performed on [employer] using a homogeneous sandwich chemiluminescent immunoassay based on [employer]. Albumin BCP dye [Mass/Vol] 2.8 G/dL Low [...] ng/L Male: 0-76 ng/L Testing performed on [employer] using a homogeneous sandwich chemiluminescent immunoassay based on [employer] technology. Urea nitrogen [Mass/Vol] 10 mg/dL Normal [...] 12-11-2024 Lipase Level 15 U/L Low 16-77 [facility] Comment on above: Performed By: #### A ERIC, MDW, BMP, MG, GFR, ADIFF, DIMER, CBC, PBNP, TROPHS #### [facility] [address] [place], [place] [address] No Panel Informationon 12-11 Legionella Urine Ag Presumptive negative for L. pneumophila serogroup 1 antigen in urine, suggesting no recent or current infection. Legionnaire's disease cannot be ruled out since other serogroups and species may also cause disease. [facility] Streptococcus Pneumoniae Urine Antig Presumptive negative for pneumococcal pneumonia, suggesting no current or recent pneumococcal infection. Infection due to Strep pneumoniae cannot be ruled out since the antigen present in the sample may be below the detection limit of the test. [facility] Comment on above: This test has not be en evaluated on patients taking antibiotics for greater than 24 hours or on patients who have recently completed an antibiotic regimen. The accuracy of this test has not been proven in young children. PBNPon 12-11-2024 Natriuretic peptide B (Bld) [Mass/Vol] 1099 pg/mL High 0-125 [facility] Comment on above: Result Comment: NT-p roBNP results of less than 300 pg/mL effectively rules out acute congestive heart failure with 99% negative predictive value. Performed By: #### A ELY REYES, JULIÁN, MG, GFR, ADIFF, DIMER, CBC, PBNP, TROPHS #### [address] [address] [facility] High Sensitivity Troponin I 10 ng/L Normal 0-76 [facility] Comment on above: Result Comment: High Sensitive Troponin I Reference Ranges: Female: 0-51 ng/L Male: 0-76 ng/L Testing performed on [employer] using a homogeneous sandwich chemiluminescent immunoassay based on [employer] technology. Performed By: #### A ELY REYES, JULIÁN, MG, GFR, ADIFF, DIMER, CBC, PBNP, TROPHS #### [address] [address] High Sensitivity Troponin I 10 ng/L Normal 0-76 [facility] Comment on above: Result Comment: High Sensitive Troponin I Reference Ranges: Female: 0-51 ng/L Male: 0-76 ng/L Testing performed on [employer] using a homogeneous sandwich chemiluminescent immunoassay based on [employer] technology. Performed By: #### A ELY REYES, JULIÁN, MG, GFR, ADIFF, DIMER, CBC, PBNP, TROPHS #### [address] [address] XR CHEST 1 VIEWon 12-11-2024 XR CHEST [...] 12/11/2024 1:19:48 AM Ordering Provider: DELORES Kate [facility] .Auto Diffon 11-28-2024 Basophil, Absolute 0.0 10 3/mcL Normal 0.0-0.3 [facility] Comment on above: Performed By: #### A DIFF, ANEU, BMP, CBC, GFR #### [address] [address] Basophils/100 WBC (Bld) 0.8 % Normal 0.0-2.5 [facility] Comment on above: Performed By: #### A DIFF, ANEU, BMP, CBC, GFR #### [address] [address] Eosinophil, Absolute 0.1 10 3/mcL Normal 0.0-0.7 [facility] Comment on above: Performed By: #### A DIFF, ANEU, BMP, CBC, GFR #### [address] [address] Eosinophils/100 WBC (Bld) 1.7 % Normal 0.0-6.0 [facility] Comment on above: Performed By: #### A DIFF, ANEU, BMP, CBC, GFR #### [address] [address] Lymphocyte, Absolute 0.9 10 3/mcL Normal 0.9-4.3 [facility] Comment on above: Performed By: #### A DIFF, ANEU, BMP, CBC, GFR #### [address] [address] Lymphocytes/100 WBC (Bld) 15.5 % Low 20.0-40.0 [facility] Comment on above: Performed By: #### A DIFF, ANEU, BMP, CBC, GFR #### [facility] [address] [place] [address] Monocyte, Absolute 0.6 10 3/mcL Normal 0.1-1.4 [facility] Comment on above: Performed By: #### A DIFF, ANEU, BMP, CBC, GFR #### [facility] [address] [place] [address] Monocytes/100 WBC (Bld) 11.2 % Normal 2.0-13.0 [facility] Comment on above: Performed By: #### A DIFF, ANEU, BMP, CBC, GFR #### [address] [address] Neutrophils/100 WBC (Bld) 70.8 % Normal 50.0-75.0 [facility] Comment on above: Performed By: #### A DIFF, ANEU, BMP, CBC, GFR #### [address] [address] .GFRon 11-28-2024 Estimated Glomerular Filtration Rate 107 ml/min/1.73sqm Normal [facility] Comment on above: Result Comment: Stages [...] eGFR results. Performed By: #### A DIFF, ANEU, BMP, CBC, GFR #### [address] [address] .NEUABSon 11-28-2024 Neutrophil, Absolute 4.1 10 3/mcL Normal 2.3-8.1 [facility] Comment on above: Performed By: #### A DIFF, ANEU, BMP, CBC, GFR #### [address] [address] BMPon 11-28-2024 BUN/Creatinine Ratio 11.7 ratio Normal 10.0-22.0 [facility] Comment on above: Performed By: #### A DIFF, ANEU, BMP, CBC, GFR #### [place] [id number] Calcium [Mass/Vol] 9.2 mg/dL Normal 8.7-10.4 [facility] Comment on above: Performed By: #### A DIFF, ANEU, BMP, CBC, GFR #### [place] [address] Chloride [Moles/Vol] 101 mmol/L Normal 98-110 [facility] Comment on above: Performed By: #### A DIFF, ANEU, BMP, CBC, GFR #### [place] [address] CO2 [Moles/Vol] 31 mmol/L Normal 22-32 [facility] Comment on above: Performed By: #### A DIFF, ANEU, BMP, CBC, GFR #### [place] [address] Creatinine [Mass/Vol] 0.77 mg/dL Normal 0.60-1.40 [facility] Comment on above: Result Comment: Test ing performed on [employer] analyzer using enzymatic creatinine methodology. Performed By: #### A DIFF, ANEU, BMP, CBC, GFR #### [place] [address] Electrolyte Balance 5.0 mEq/L Normal 4.0-15.0 [facility] Comment on above: Performed By: #### A DIFF, ANEU, BMP, CBC, GFR #### [place] [address] Glucose [Mass/Vol] 100 mg/dL Normal 70-110 [facility] Comment on above: Performed By: #### A DIFF, ANEU, BMP, CBC, GFR #### [place] [id number] Potassium [Moles/Vol] 4.0 mmol/L Normal 3.5-5.0 [facility] Comment on above: Performed By: #### A DIFF, ANEU, BMP, CBC, GFR #### [place] [address] Sodium [Moles/Vol] 137 mmol/L Normal 136-145 [facility] Comment on above: Performed By: #### A DIFF, ANEU, BMP, CBC, GFR #### [place] [address] Urea nitrogen [Mass/Vol] 9.0 mg/dL Normal 8.0-22.0 [facility] Comment on above: Performed By: #### A DIFF, ANEU, BMP, CBC, GFR #### [place] [id number] CBCon 11-28-2024 Erythrocyte distribution width (RBC) [Ratio] 15.1 % Normal 11.5-15.5 [facility] Comment on above: Performed By: #### A DIFF, ANEU, BMP, CBC, GFR #### [place] [address] Hematocrit (Bld) [Volume fraction] 42.1 % Normal 40.0-52.0 [facility] Comment on above: Performed By: #### A DIFF, ANEU, BMP, CBC, GFR #### [place] [address] Hgb 13.8 G/dL Normal 13.0-17.5 [facility] Comment on above: Performed By: #### A DIFF, ANEU, BMP, CBC, GFR #### [place] [id number] MCH (RBC) [Entitic mass] 29.0 pg Normal 27.0-33.0 [facility] Comment on above: Performed By: #### A DIFF, ANEU, BMP, CBC, GFR #### [place] [id number] MCHC 32.8 G/dL Normal 32.0-36.0 [facility] Comment on above: Performed By: #### A DIFF, ANEU, BMP, CBC, GFR #### [address] [address] MCV (RBC) [Entitic vol] 88.3 fL Normal 81.0-100.0 [facility] Comment on above: Performed By: #### A DIFF, ANEU, BMP, CBC, GFR #### [address] [address] Platelet 195 10 3/mcL Normal 150-450 [facility] Comment on above: Performed By: #### A DIFF, ANEU, BMP, CBC, GFR #### [address] [address] Platelet mean volume (Bld) [Entitic vol] 8.4 fL Normal 6.4-10.5 [facility] Comment on above: Performed By: #### A DIFF, ANEU, BMP, CBC, GFR #### [place] [address] RBC 4.77 10 6/mcL Normal 4.50-6.00 [facility] Comment on above: Performed By: #### A DIFF, ANEU, BMP, CBC, GFR #### [address] [address] WBC 5.8 10 3/mcL Normal 4.5-10.8 [facility] Comment on above: Performed By: #### A DIFF, ANEU, BMP, CBC, GFR #### [address] [address] LABORATORYOrdered By: Moustapha Winslow on 11-28-2024 Blood Glucose Testing Reason Routine (11/28/24 5:00 PM) [facility] Glucose [Mass/Vol] 89 mg/dL Normal 70 - 110 mg/dL [facility] LABORATORYOrdered By: Andrea Mcgarry on 11-28-2024 Blood Glucose Testing Reason Routine (11/28/24 12:01 PM) [facility] Glucose [Mass/Vol] 91 mg/dL Normal 70 - 110 mg/dL [facility] Blood Glucose Testing Reason Routine (11/28/24 8:15 AM) [facility] Glucose [Mass/Vol] 93 mg/dL Normal 70 - 110 mg/dL [facility] LABORATORYOrdered By: SYSTEM SYSTEM on 11-28-2024 [...] above: Interpretive Data: T esting performed on [employer] analyzer using enzymatic creatinine methodology. Electrolyte Balance [...] 100 mg/dL Normal 70 - 110 mg/dL ADM SS Hematocrit (Bld) [Volume fraction] 42.1 [...] 27.0 - 33.0 pg Workflow SS MCHC 32.8 G/dL Normal 32.0 - 36.0 G/dL Workflow SS MCV (RBC) [Entitic vol] 88.3 fL Normal 81.0 - 100.0 fL Workflow SS Monocytes (Bld) [#/Vol] 0.6 103/mcL [...] 5.8 103/mcL Normal 4.5 - 10.8 10^3/mcL AH Workflow SS LABORATORYOrdered By: Sharyn nuñez on 11-27-2024 Time of Stated Blood Glucose [id number] [facility] .Auto Diffon 11-26-2024 Basophil, Absolute 0.0 10 3/mcL Normal 0.0-0.3 [facility] Comment on above: Performed By: #### A DIFF, ANEU, BMP, CBC, GFR #### [address] [address] Basophils/100 WBC (Bld) 0.4 % Normal 0.0-2.5 [facility] Comment on above: Performed By: #### A DIFF, ANEU, BMP, CBC, GFR #### [address] [address] Eosinophil, Absolute 0.0 10 3/mcL Normal 0.0-0.7 [facility] Comment on above: Performed By: #### A DIFF, ANEU, BMP, CBC, GFR #### [address] [address] Eosinophils/100 WBC (Bld) 0.7 % Normal 0.0-6.0 [facility] Comment on above: Performed By: #### A DIFF, ANEU, BMP, CBC, GFR #### [address] [address] Lymphocyte, Absolute 0.8 10 3/mcL Low 0.9-4.3 [facility] Comment on above: Performed By: #### A DIFF, ANEU, BMP, CBC, GFR #### [address] [address] Lymphocytes/100 WBC (Bld) 12.2 % Low 20.0-40.0 [facility] Comment on above: Performed By: #### A DIFF, ANEU, BMP, CBC, GFR #### [address] [address] Monocyte, Absolute 0.7 10 3/mcL Normal 0.1-1.4 [facility] Comment on above: Performed By: #### A DIFF, ANEU, BMP, CBC, GFR #### [address] [address] Monocytes/100 WBC (Bld) 11.2 % Normal 2.0-13.0 [facility] Comment on above: Performed By: #### A DIFF, ANEU, BMP, CBC, GFR #### [address] [address] Neutrophils/100 WBC (Bld) 75.5 % High 50.0-75.0 [facility] Comment on above: Performed By: #### A DIFF, ANEU, BMP, CBC, GFR #### [address] [address] .GFRon 11-26-2024 Estimated Glomerular Filtration Rate 103 ml/min/1.73sqm Normal [facility] Comment on above: Result Comment: Stages [...] eGFR results. Performed By: #### A DIFF, ANEU, BMP, CBC, GFR #### [address] [address] .NEUABSon 11-26-2024 Neutrophil, Absolute 4.9 10 3/mcL Normal 2.3-8.1 [facility] Comment on above: Performed By: #### A DIFF, ANEU, BMP, CBC, GFR #### [address] [address] BMPon 11-26-2024 BUN/Creatinine Ratio 11.5 ratio Normal 10.0-22.0 [facility] Comment on above: Performed By: #### A DIFF, ANEU, BMP, CBC, GFR #### [address] [address] Calcium [Mass/Vol] 9.0 mg/dL Normal 8.7-10.4 [facility] Comment on above: Performed By: #### A DIFF, ANEU, BMP, CBC, GFR #### [address] [address] Chloride [Moles/Vol] 100 mmol/L Normal 98-110 [facility] Comment on above: Performed By: #### A DIFF, ANEU, BMP, CBC, GFR #### [address] [address] CO2 [Moles/Vol] 29 mmol/L Normal 22-32 [facility] Comment on above: Performed By: #### A DIFF, ANEU, BMP, CBC, GFR #### [address] [address] Creatinine [Mass/Vol] 0.87 mg/dL Normal 0.60-1.40 [facility] Comment on above: Result Comment: Test ing performed on Musiwave analyzer using enzymatic creatinine methodology. Performed By: #### A DIFF, ANEU, BMP, CBC, GFR #### [address] [address] Electrolyte Balance 6.0 mEq/L Normal 4.0-15.0 [facility] Comment on above: Performed By: #### A DIFF, ANEU, BMP, CBC, GFR #### [address] [address] Glucose [Mass/Vol] 131 mg/dL High 70-110 [facility] Comment on above: Performed By: #### A DIFF, ANEU, BMP, CBC, GFR #### [address] [address] Potassium [Moles/Vol] 4.4 mmol/L Normal 3.5-5.0 [facility] Comment on above: Performed By: #### A DIFF, ANEU, BMP, CBC, GFR #### [address] [address] Sodium [Moles/Vol] 135 mmol/L Low 136-145 [facility] Comment on above: Performed By: #### A DIFF, ANEU, BMP, CBC, GFR #### [place] [address] Urea nitrogen [Mass/Vol] 10.0 mg/dL Normal 8.0-22.0 [facility] Comment on above: Performed By: #### A DIFF, ANEU, BMP, CBC, GFR #### [place] [address] CBCon 11-26-2024 Erythrocyte distribution width (RBC) [Ratio] 15.0 % Normal 11.5-15.5 [facility] Comment on above: Performed By: #### A DIFF, ANEU, BMP, CBC, GFR #### [place] [address] Hematocrit (Bld) [Volume fraction] 42.6 % Normal 40.0-52.0 [facility] Comment on above: Performed By: #### A DIFF, ANEU, BMP, CBC, GFR #### [place] [address] Hgb 14.2 G/dL Normal 13.0-17.5 [facility] Comment on above: Performed By: #### A DIFF, ANEU, BMP, CBC, GFR #### [place] [address] MCH (RBC) [Entitic mass] 29.5 pg Normal 27.0-33.0 [facility] Comment on above: Performed By: #### A DIFF, ANEU, BMP, CBC, GFR #### [place] [address] MCHC 33.4 G/dL Normal 32.0-36.0 [facility] Comment on above: Performed By: #### A DIFF, ANEU, BMP, CBC, GFR #### [place] [address] MCV (RBC) [Entitic vol] 88.4 fL Normal 81.0-100.0 [facility] Comment on above: Performed By: #### A DIFF, ANEU, BMP, CBC, GFR #### [address] [address] Platelet 140 10 3/mcL Low 150-450 [facility] Comment on above: Performed By: #### A DIFF, ANEU, BMP, CBC, GFR #### [address] [address] Platelet mean volume (Bld) [Entitic vol] 8.6 fL Normal 6.4-10.5 [facility] Comment on above: Performed By: #### A DIFF, ANEU, BMP, CBC, GFR #### [address] [address] RBC 4.82 10 6/mcL Normal 4.50-6.00 [facility] Comment on above: Performed By: #### A DIFF, ANEU, BMP, CBC, GFR #### [address] [address] WBC 6.5 10 3/mcL Normal 4.5-10.8 [facility] Comment on above: Performed By: #### A DIFF, ANEU, BMP, CBC, GFR #### [address] [address] LABORATORYOrdered By: SYSTEM SYSTEM on 11-26-2024 Basophils (Bld) [#/Vol] 0.0 103/mcL Normal 0.0 - 0.3 10^3/mcL Workflow SS Basophils/100 WBC (Bld) 0.4 % Normal 0.0 - 2.5 % Workflow SS Calcium [Mass/Vol] 9.0 mg/dL Normal 8.7 - 10. 4 mg/dL ADM SS Chloride [Moles/Vol] 100 mmol/L Normal 98 - 11 0 mEq/L ADM SS CO2 [Moles/Vol] 29 mmol/L Normal 22 - 32 mEq/L ADM SS Creatinine [Mass/Vol] 0.87 mg/dL Normal 0.60 - 1.40 mg/dL ADM SS Comment on above: Interpretive Data: T esting performed on Musiwave analyzer using enzymatic creatinine methodology. Electrolyte Balance 6.0 mEq/L Normal 4.0 - 15 .0 mEq/L ADM SS Eosinophils (Bld) [#/Vol] 0.0 103/mcL Normal 0.0 - 0.7 10^3/mcL AH Workflow SS Eosinophils/100 WBC (Bld) 0.7 % Normal 0.0 - 6.0 % AH [...] 42.6 % Normal 40.0 - 52.0 % AH Workflow SS Hemoglobin (Bld) [Mass/Vol] 14.2 G/dL Normal 13.0 - 17.5 G/dL AH Workflow SS Lymphocytes (Bld) [#/Vol] 0.8 103/mcL Low 0.9 - 4.3 10^3/mcL Workflow SS Lymphocytes/100 WBC (Bld) 12.2 % Low 20.0 - 40.0 % Workflow SS MCH (RBC) [Entitic mass] 29.5 pg Normal 27.0 - 33.0 pg AH Workflow SS MCHC 33.4 G/dL Normal 32.0 - 36.0 G/dL Workflow SS MCV (RBC) [Entitic vol] 88.4 fL Normal 81.0 - 100.0 fL Workflow SS Monocytes (Bld) [#/Vol] 0.7 103/mcL Normal 0.1 - 1.4 10^3/mcL Workflow SS Monocytes/100 WBC (Bld) 11.2 % Normal 2.0 - 13.0 % Workflow SS Neutrophils (Bld) [#/Vol] 4.9 103/mcL Normal 2.3 - 8.1 10^3/mcL Workflow SS Neutrophils/100 WBC (Bld) 75.5 % High 50.0 - 75.0 % AH Workflow SS Platelet mean volume (Bld) [Entitic vol] 8.6 fL Normal 6.4 - 10.5 fL AH Workflow SS Platelets (Bld) [#/Vol] 140 103/mcL Low 150 - 450 10^3/mcL AH Workflow SS Potassium [Moles/Vol] 4.4 mmol/L Normal 3.5 - 5.0 mEq/L ADM SS RBC (Bld) [#/Vol] 4.82 106/mcL Normal 4.50 - 6.0 0 10^6/mcL Workflow SS Sodium [Moles/Vol] 135 mmol/L Low 136 - 145 mEq/L ADM SS Urea nitrogen [Mass/Vol] 10.0 mg/dL Normal 8.0 - 22.0 mg/dL ADM SS Urea nitrogen/Creatinine [Mass ratio] 11.5 ratio Normal 10.0 - 22.0 ratio ADM SS WBC (Bld) [#/Vol] 6.5 103/mcL Normal 4.5 - 10.8 10^3/mcL Workflow SS No Panel Informationon 11-26 Microscopic examination of blood, culture Culture has been received in lab and is no growth to date. Routine cultures are held for 5 days. [facility] .Auto Diffon 11-25-2024 Basophil, Absolute 0.0 10 3/mcL Normal 0.0-0.3 [facility] Comment on above: Performed By: #### C BC, MG, GFR, ADIFF, BMP, ANEU #### [place] [id number] [place] [address] Basophils/100 WBC (Bld) 0.4 % Normal 0.0-2.5 [facility] Comment on above: Performed By: #### C BC, MG, GFR, ADIFF, BMP, ANEU #### [facility] [address] [place] [address] Eosinophil, Absolute 0.1 10 3/mcL Normal 0.0-0.7 [facility] Comment on above: Performed By: #### C BC, MG, GFR, ADIFF, BMP, ANEU #### [address] [address] Eosinophils/100 WBC (Bld) 0.6 % Normal 0.0-6.0 [facility] Comment on above: Performed By: #### C BC, MG, GFR, ADIFF, BMP, ANEU #### [address] [address] Lymphocyte, Absolute 0.8 10 3/mcL Low 0.9-4.3 [facility] Comment on above: Performed By: #### C BC, MG, GFR, ADIFF, BMP, ANEU #### [address] [address] Lymphocytes/100 WBC (Bld) 9.6 % Low 20.0-40.0 [facility] Comment on above: Performed By: #### C BC, MG, GFR, ADIFF, BMP, ANEU #### [address] [address] Monocyte, Absolute 0.8 10 3/mcL Normal 0.1-1.4 [facility] Comment on above: Performed By: #### C BC, MG, GFR, ADIFF, BMP, ANEU #### [address] [address] Monocytes/100 WBC (Bld) 9.3 % Normal 2.0-13.0 [facility] Comment on above: Performed By: #### C BC, MG, GFR, ADIFF, BMP, ANEU #### [address] [address] Neutrophils/100 WBC (Bld) 80.1 % High 50.0-75.0 [facility] Comment on above: Performed By: #### C BC, MG, GFR, ADIFF, BMP, ANEU #### [address] [address] .GFRon 11-25-2024 Estimated Glomerular Filtration Rate 102 ml/min/1.73sqm Normal [facility] Comment on above: Result Comment: Stages [...] calculate the eGFR results. Performed By: #### C BC, MG, GFR, ADIFF, BMP, ANEU #### [place] [address] .NEUABSon 11-25-2024 Neutrophil, Absolute 7.1 10 3/mcL Normal 2.3-8.1 [facility] MAIN Comment on above: Performed By: #### A DIFF, ANEU, BMP, CBC, GFR #### [place] [address] BCIDon 11-25-2024 Acinetobacter carol-baumanii complex Not detected Normal Not Detected [facility] MAIN Comment on above: Performed By: #### C BC, MG, GFR, ADIFF, BMP, ANEU #### [place] [address] Bacteroides fragilis Not detected Normal Not Detected [facility] MAIN Comment on above: Performed By: #### C BC, MG, GFR, ADIFF, BMP, ANEU #### [place] [address] BCID Comment See Comment Normal [facility] MAIN Comment on above: Result Comment: Anti microbial resistance can occur via multiple mechanisms. A "Not Detected" result for antimicrobial resistance gene(s) does not [...] BCID2 Panel. If BCID panel was negative ("Not Detected") for all targets, this does not exclude a blood stream infection. Our blood culture system detected growth. Culture identification and susceptibility testing (if appropriate) to follow. Performed By: #### C BC, MG, GFR, ADIFF, BMP, ANEU #### [place] [address] Moiz albicans Not detected Normal Not Detected [facility] MAIN Comment on above: Performed By: #### C BC, MG, GFR, ADIFF, BMP, ANEU #### [place] [address] Moiz auris Not detected Normal Not Detected [facility] MAIN Comment on above: Performed By: #### C BC, MG, GFR, ADIFF, BMP, ANEU #### [place] [address] Moiz glabrata Not detected Normal Not Detected [facility] MAIN Comment on above: Performed By: #### C BC, MG, GFR, ADIFF, BMP, ANEU #### [place] [address] Moiz krusei Not detected Normal Not Detected [facility] MAIN Comment on above: Performed By: #### C BC, MG, GFR, ADIFF, BMP, ANEU #### [place] [address] Moiz parapsilosis Not detected Normal Not Detected [facility] MAIN Comment on above: Performed By: #### C BC, MG, GFR, ADIFF, BMP, ANEU #### [place] [address] Moiz tropicalis Not detected Normal Not Detected [facility] MAIN Comment on above: Performed By: #### C BC, MG, GFR, ADIFF, BMP, ANEU #### [place] [address] Cryptococcus neoformans-gattii Not detected Normal Not Detected [facility] MAIN Comment on above: Performed By: #### C BC, MG, GFR, ADIFF, BMP, ANEU #### [place] [address] CTX-M (ESBL) Not Applicable Normal Not Detected [facility] MAIN Comment on above: Performed By: #### C BC, MG, GFR, ADIFF, BMP, ANEU #### [place] [address] E. Coli Not detected Normal Not Detected [facility] MAIN Comment on above: Performed By: #### C BC, MG, GFR, ADIFF, BMP, ANEU #### [place] [address] Enterobacter cloacae Complex Not detected Normal Not Detected [facility] MAIN Comment on above: Performed By: #### C BC, MG, GFR, ADIFF, BMP, ANEU #### [place] [address] Enterobacterales Not detected Normal Not Detected [facility] MAIN Comment on above: Performed By: #### C BC, MG, GFR, ADIFF, BMP, ANEU #### [place] [address] Enterococcus faecalis Not detected Normal Not Detected [facility] MAIN Comment on above: Performed By: #### C BC, MG, GFR, ADIFF, BMP, ANEU #### [place] [address] Enterococcus faecium Not detected Normal Not Detected [facility] MAIN Comment on above: Performed By: #### C BC, MG, GFR, ADIFF, BMP, ANEU #### [place] [address] Haemophilus influenzae Not detected Normal Not Detected [facility] MAIN Comment on above: Performed By: #### C BC, MG, GFR, ADIFF, BMP, ANEU #### [place] [address] IMP (Carbapenemase) Not Applicable Normal Not Detected [facility] MAIN Comment on above: Performed By: #### C BC, MG, GFR, ADIFF, BMP, ANEU #### [place] [address] Klebsiella aerogenes Not detected Normal Not Detected [facility] MAIN Comment on above: Performed By: #### C BC, MG, GFR, ADIFF, BMP, ANEU #### [place] [address] Klebsiella oxytoca Not detected Normal Not Detected [facility] MAIN Comment on above: Performed By: #### C BC, MG, GFR, ADIFF, BMP, ANEU #### [place] [address] Klebsiella pneumoniae group Not detected Normal Not Detected [facility] MAIN Comment on above: Performed By: #### C BC, MG, GFR, ADIFF, BMP, ANEU #### [place] [address] KPC (Carbapenemase) Not Applicable Normal Not Detected [facility] MAIN Comment on above: Performed By: #### C BC, MG, GFR, ADIFF, BMP, ANEU #### [place] [address] Listeria monocytogenes Not detected Normal Not Detected [facility] MAIN Comment on above: Performed By: #### C BC, MG, GFR, ADIFF, BMP, ANEU #### [place] [address] MCR-1 (Colistin Resistance) Not Applicable Normal Not Detected [facility] MAIN Comment on above: Performed By: #### C BC, MG, GFR, ADIFF, BMP, ANEU #### [place] [address] Mec A/C Not Applicable Normal Not Detected [facility] MAIN Comment on above: Performed By: #### C BC, MG, GFR, ADIFF, BMP, ANEU #### [place] [address] Mec A/C-MREJ (MRSA) Not detected Normal Not Detected [facility] MAIN Comment on above: Performed By: #### C BC, MG, GFR, ADIFF, BMP, ANEU #### [place] [address] NDM (Carbapenemase) Not Applicable Normal Not Detected [facility] MAIN Comment on above: Performed By: #### C BC, MG, GFR, ADIFF, BMP, ANEU #### [place] [address] Neisseria meningitidis (Encapsalated) Not detected Normal Not Detected [facility] MAIN Comment on above: Performed By: #### C BC, MG, GFR, ADIFF, BMP, ANEU #### [place] [address] OXA-48 like (Carbapenemase) Not Applicable Normal Not Detected [facility] MAIN Comment on above: Performed By: #### C BC, MG, GFR, ADIFF, BMP, ANEU #### [place] [address] Proteus Not detected Normal Not Detected [facility] MAIN Comment on above: Performed By: #### C BC, MG, GFR, ADIFF, BMP, ANEU #### [place] [address] Pseudomonas aeruginosa Not detected Normal Not Detected [facility] MAIN Comment on above: Performed By: #### C BC, MG, GFR, ADIFF, BMP, ANEU #### [place] [address] S. agalactiae Org specific cx Ql (Vag fld) Not detected Normal Not Detected [facility] MAIN Comment on above: Performed By: #### C BC, MG, GFR, ADIFF, BMP, ANEU #### [place] [address] Salmonella species Not detected Normal Not Detected [facility] MAIN Comment on above: Performed By: #### C BC, MG, GFR, ADIFF, BMP, ANEU #### [place] [address] Serratia marcescens Not detected Normal Not Detected [facility] MAIN Comment on above: Performed By: #### C BC, MG, GFR, ADIFF, BMP, ANEU #### [place] [address] Staphylococcus Detected Abnormal Not Detected [facility] MAIN Comment on above: Performed By: #### C BC, MG, GFR, ADIFF, BMP, ANEU #### [place] [address] Staphylococcus aureus Detected Abnormal Not Detected [facility] MAIN Comment on above: Result Comment: If S taphylococcus aureus is "Detected", an Infectious Disease physician consult is required on identification. Performed By: #### C BC, MG, GFR, ADIFF, BMP, ANEU #### [address] [address] Staphylococcus epidermidis Not detected Normal Not Detected [facility] MAIN Comment on above: Performed By: #### C BC, MG, GFR, ADIFF, BMP, ANEU #### [place] [address] Staphylococcus lugdunensis Not detected Normal Not Detected [facility] MAIN Comment on above: Performed By: #### C BC, MG, GFR, ADIFF, BMP, ANEU #### [place] [address] Stenotrophomonas maltophilia Not detected Normal Not Detected [facility] MAIN Comment on above: Performed By: #### C BC, MG, GFR, ADIFF, BMP, ANEU #### [place] [address] Streptococcus Not detected Normal Not Detected [facility] MAIN Comment on above: Performed By: #### C BC, MG, GFR, ADIFF, BMP, ANEU #### [place] [address] Streptococcus pneumoniae Not detected Normal Not Detected [facility] MAIN Comment on above: Performed By: #### C BC, MG, GFR, ADIFF, BMP, ANEU #### [place] [address] Streptococcus pyogenes Not detected Normal Not Detected [facility] MAIN Comment on above: Performed By: #### C BC, MG, GFR, ADIFF, BMP, ANEU #### [place] [address] Van A/B Not Applicable Normal Not Detected [facility] MAIN Comment on above: Performed By: #### C BC, MG, GFR, ADIFF, BMP, ANEU #### [place] [address] VIM (Carbapenemase) Not Applicable Normal Not Detected [facility] MAIN Comment on above: Performed By: #### C BC, MG, GFR, ADIFF, BMP, ANEU #### [place] [address] BMPon 11-25-2024 BUN/Creatinine Ratio 15.7 ratio Normal 10.0-22.0 [facility] MAIN Comment on above: Performed By: #### C BC, MG, GFR, ADIFF, BMP, ANEU #### [address] [address] Calcium [Mass/Vol] 9.1 mg/dL Normal 8.7-10.4 [facility] MAIN Comment on above: Performed By: #### C BC, MG, GFR, ADIFF, BMP, ANEU #### [address] [address] Chloride [Moles/Vol] 100 mmol/L Normal 98-110 [facility] MAIN Comment on above: Performed By: #### C BC, MG, GFR, ADIFF, BMP, ANEU #### [address] [address] CO2 [Moles/Vol] 24 mmol/L Normal 22-32 [facility] MAIN Comment on above: Performed By: #### C BC, MG, GFR, ADIFF, BMP, ANEU #### [place] [id number] Creatinine [Mass/Vol] 0.89 mg/dL Normal 0.60-1.40 [facility] MAIN Comment on above: Result Comment: Test ing performed on Musiwave analyzer using enzymatic creatinine methodology. Performed By: #### C BC, MG, GFR, ADIFF, BMP, ANEU #### [place] [id number] Electrolyte Balance 12.0 mEq/L Normal 4.0-15.0 [facility] MAIN Comment on above: Performed By: #### C BC, MG, GFR, ADIFF, BMP, ANEU #### [place] [id number] Glucose [Mass/Vol] 108 mg/dL Normal 70-110 [facility] MAIN Comment on above: Performed By: #### C BC, MG, GFR, ADIFF, BMP, ANEU #### [place] [id number] Potassium [Moles/Vol] 3.8 mmol/L Normal 3.5-5.0 [facility] MAIN Comment on above: Performed By: #### C BC, MG, GFR, ADIFF, BMP, ANEU #### [place] [address] Sodium [Moles/Vol] 136 mmol/L Normal 136-145 [facility] MAIN Comment on above: Performed By: #### C BC, MG, GFR, ADIFF, BMP, ANEU #### [place] [address] Urea nitrogen [Mass/Vol] 14.0 mg/dL Normal 8.0-22.0 [facility] MAIN Comment on above: Performed By: #### C BC, MG, GFR, ADIFF, BMP, ANEU #### [place] [address] CBCon 11-25-2024 Erythrocyte distribution width (RBC) [Ratio] 15.3 % Normal 11.5-15.5 [facility] MAIN Comment on above: Order Comment: QNS Performed By: #### C BC, MG, GFR, ADIFF, BMP, ANEU #### [place] [address] Hematocrit (Bld) [Volume fraction] 44.6 % Normal 40.0-52.0 [facility] MAIN Comment on above: Order Comment: QNS Performed By: #### C BC, MG, GFR, ADIFF, BMP, ANEU #### [place] [address] Hgb 14.9 G/dL Normal 13.0-17.5 [facility] MAIN Comment on above: Order Comment: QNS Performed By: #### C BC, MG, GFR, ADIFF, BMP, ANEU #### [place] [address] MCH (RBC) [Entitic mass] 29.2 pg Normal 27.0-33.0 [facility] MAIN Comment on above: Order Comment: QNS Performed By: #### C BC, MG, GFR, ADIFF, BMP, ANEU #### [place] [address] MCHC 33.4 G/dL Normal 32.0-36.0 [facility] MAIN Comment on above: Order Comment: QNS Performed By: #### C BC, MG, GFR, ADIFF, BMP, ANEU #### [place] [address] MCV (RBC) [Entitic vol] 87.6 fL Normal 81.0-100.0 [facility] MAIN Comment on above: Order Comment: QNS Performed By: #### C BC, MG, GFR, ADIFF, BMP, ANEU #### [place] [address] Platelet 183 10 3/mcL Normal 150-450 [facility] MAIN Comment on above: Order Comment: QNS Performed By: #### C BC, MG, GFR, ADIFF, BMP, ANEU #### [place] [address] Platelet mean volume (Bld) [Entitic vol] 8.3 fL Normal 6.4-10.5 [facility] MAIN Comment on above: Order Comment: QNS Performed By: #### C BC, MG, GFR, ADIFF, BMP, ANEU #### [place] [address] RBC 5.08 10 6/mcL Normal 4.50-6.00 [facility] MAIN Comment on above: Order Comment: QNS Performed By: #### C BC, MG, GFR, ADIFF, BMP, ANEU #### [place] [address] WBC 8.9 10 3/mcL Normal 4.5-10.8 [facility] MAIN Comment on above: Order Comment: QNS Performed By: #### C BC, MG, GFR, ADIFF, BMP, ANEU #### [place] [address] LABORATORYOrdered By: SYSTEM SYSTEM on 11-25-2024 Basophils [...] G/dL Workflow SS MCV (RBC) [Entitic vol] 87.6 fL Normal 81.0 - 100.0 fL Workflow SS Monocytes (Bld) [#/Vol] 0.8 103/mcL Normal 0.1 - 1.4 10^3/mcL Workflow SS Monocytes/100 WBC (Bld) 9.3 % [...] 183 103/mcL Normal 150 - 450 10^3/mcL Workflow SS RBC (Bld) [#/Vol] 5.08 106/mcL Normal 4.50 - 6.0 0 10^6/mcL Workflow SS WBC (Bld) [#/Vol] 8.9 103/mcL Normal 4.5 - 10.8 10^3/mcL AH Workflow SS Calcium [Mass/Vol] 9.1 mg/dL Normal 8.7 - 10. 4 mg/dL ADM SS Chloride [Moles/Vol] 100 mmol/L Normal 98 - 11 0 mEq/L ADM SS CO2 [Moles/Vol] 24 mmol/L Normal 22 - 32 mEq/L AH ADM SS Creatinine [Mass/Vol] 0.89 mg/dL Normal 0.60 - 1.40 mg/dL AH ADM SS Comment on above: Interpretive Data: T esting performed on Musiwave analyzer using enzymatic creatinine methodology. Electrolyte Balance [...] 3.8 mmol/L Normal 3.5 - 5.0 mEq/L AH ADM SS Sodium [Moles/Vol] 136 mmol/L Normal 136 - 145 mEq/L AH ADM SS Urea nitrogen [Mass/Vol] 14.0 mg/dL Normal 8.0 - 22.0 mg/dL ADM SS Urea nitrogen/Creatinine [Mass ratio] 15.7 ratio Normal 10.0 - 22.0 ratio ADM SS MGon 11-25-2024 Magnesium [Mass/Vol] 2.1 mg/dL Normal 1.6-2.4 [facility] MAIN Comment on above: Performed By: #### C BC, MG, GFR, ADIFF, BMP, ANEU #### [address] [address] No Panel Informationon 11-25 GSAER Gram Positive Cocci in [facility] Microscopic examination of blood, culture Culture has been received in lab and is no growth to date. Routine cultures are held for 5 days. [facility] Microscopic examination of blood, culture Staphylococcus coagulase negative Staphylococcus coagulase negative #2 Staphylococcus coagulase negative #3 Isolated from aerobe bottle only. 1 out of 2 sets positive Organism is a potential contaminant. Clinical Significance undetermined. Please contact Microbiology if further work-up is required. [facility] XR ANKLE MINIMUM 3 VIEWS LEF [...] 11/25/2024 7:46:46 PM Ordering Provider: SUZE MISHRA [facility] MAIN XR ANKLE MINIMUM 3 VIEWS [...] 11/25/2024 7:39:01 PM Ordering Provider: SUZE MISHRA [facility] XR TIBIA/FIBULA 2 VIEWS [facility] Ton 11-25-2024 XR TIBIA/FIBULA 2 VIEWS RIGHT ORIGINAL [...] 11/25/2024 7:42:39 PM Ordering Provider: ORI TOMLIN [facility] .Auto Diffon 11-24-2024 Basophil, Absolute 0.0 10 3/mcL Normal 0.0-0.3 [facility] MAIN Comment on above: Performed By: #### A DIFF, ANEU, BMP, CBC, GFR #### [address] [address] Basophils/100 WBC (Bld) 0.2 % Normal 0.0-2.5 [facility] MAIN Comment on above: Performed By: #### A DIFF, ANEU, BMP, CBC, GFR #### [address] [address] Eosinophil, Absolute 0.0 10 3/mcL Normal 0.0-0.7 [facility] MAIN Comment on above: Performed By: #### A DIFF, ANEU, BMP, CBC, GFR #### [address] [address] Eosinophils/100 WBC (Bld) 0.2 % Normal 0.0-6.0 [facility] MAIN Comment on above: Performed By: #### A DIFF, ANEU, BMP, CBC, GFR #### [address] [address] Lymphocyte, Absolute 1.2 10 3/mcL Normal 0.9-4.3 [facility] MAIN Comment on above: Performed By: #### A DIFF, ANEU, BMP, CBC, GFR #### [address] [address] Lymphocytes/100 WBC (Bld) 9.9 % Low 20.0-40.0 [facility] MAIN Comment on above: Performed By: #### A DIFF, ANEU, BMP, CBC, GFR #### [address] [address] Monocyte, Absolute 1.6 10 3/mcL High 0.1-1.4 [facility] MAIN Comment on above: Performed By: #### A DIFF, ANEU, BMP, CBC, GFR #### [address] [address] Monocytes/100 WBC (Bld) 12.6 % Normal 2.0-13.0 [facility] MAIN Comment on above: Performed By: #### A DIFF, ANEU, BMP, CBC, GFR #### [address] [address] Neutrophils/100 WBC (Bld) 77.1 % High 50.0-75.0 [facility] Comment on above: Performed By: #### A DIFF, ANEU, BMP, CBC, GFR #### [address] [address] Basophil, Absolute 0.1 10 3/mcL Normal 0.0-0.3 [facility] Comment on above: Performed By: #### A MD ERICW, BMP, MG, GFR, ADIFF, DIMER, CBC, PBNP, TROPHS #### [address] [address] Basophils/100 WBC (Bld) 0.4 % Normal 0.0-2.5 [facility] Comment on above: Performed By: #### A ELY REYES, BMP, MG, GFR, ADIFF, DIMER, CBC, PBNP, TROPHS #### [address] [address] Eosinophil, Absolute 0.0 10 3/mcL Normal 0.0-0.7 [facility] Comment on above: Performed By: #### A ELY REYES, BMP, MG, GFR, ADIFF, DIMER, CBC, PBNP, TROPHS #### [address] [address] Eosinophils/100 WBC (Bld) 0.1 % Normal 0.0-6.0 [facility] Comment on above: Performed By: #### A ELY REYES, BMP, MG, GFR, ADIFF, DIMER, CBC, PBNP, TROPHS #### [address] [address] Lymphocyte, Absolute 1.0 10 3/mcL Normal 0.9-4.3 [facility] Comment on above: Performed By: #### A ELY REYES, BMP, MG, GFR, ADIFF, DIMER, CBC, PBNP, TROPHS #### [address] [address] Lymphocytes/100 WBC (Bld) 5.8 % Low 20.0-40.0 [facility] Comment on above: Performed By: #### A MD ERICW, BMP, MG, GFR, ADIFF, DIMER, CBC, PBNP, TROPHS #### [address] [address] Monocyte, Absolute 1.9 10 3/mcL High 0.1-1.4 [facility] Comment on above: Performed By: #### A MD ERICW, BMP, MG, GFR, ADIFF, DIMER, CBC, PBNP, TROPHS #### [address] [address] Monocytes/100 WBC (Bld) 11.5 % Normal 2.0-13.0 [facility] Comment on above: Performed By: #### A MD ERICW, BMP, MG, GFR, ADIFF, DIMER, CBC, PBNP, TROPHS #### [address] [address] Neutrophils/100 WBC (Bld) 82.2 % High 50.0-75.0 [facility] Comment on above: Performed By: #### A MD ERICW, BMP, MG, GFR, ADIFF, DIMER, CBC, PBNP, TROPHS #### [address] [address] .GFRon 11-24-2024 Estimated Glomerular Filtration Rate 102 ml/min/1.73sqm Normal [facility] Comment on above: Result Comment: Stages [...] eGFR results. Performed By: #### A DIFF, ANEU, BMP, CBC, GFR #### [address] [address] Estimated Glomerular Filtration Rate 93 ml/min/1.73sqm Normal [facility] Comment on above: Result Comment: [...] GFR, ADIFF, DIMER, CBC, PBNP, TROPHS #### [address] [address] .MDWon 11-24-2024 Monocyte Distribution Width 19.29 Normal 0.00-20.00 [facility] Comment on above: Result Comment: For ED adult patients suspected of sepsis, MDW<=20.0 does not rule out sepsis or risk of sepsis Performed By: #### A ERIC, MDW, BMP, MG, GFR, ADIFF, DIMER, CBC, PBNP, TROPHS #### [address] [address] .NEUABSon 11-24-2024 Neutrophil, Absolute 9.7 10 3/mcL High 2.3-8.1 [facility] MAIN Comment on above: Performed By: #### A DIFF, ANEU, BMP, CBC, GFR #### [address] [address] Neutrophil, Absolute 13.6 10 3/mcL High 2.3-8.1 [facility] Comment on above: Performed By: #### A ERIC, MDW, BMP, MG, GFR, ADIFF, DIMER, CBC, PBNP, TROPHS #### [place] [address] [place], [place] [address] BMPon 11-24-2024 BUN/Creatinine Ratio 10.0 ratio Normal 10.0-22.0 [facility] MAIN Comment on above: Performed By: #### A DIFF, ANEU, BMP, CBC, GFR #### [address] [address] Calcium [Mass/Vol] 9.2 mg/dL Normal 8.7-10.4 [facility] MAIN Comment on above: Performed By: #### A DIFF, ANEU, BMP, CBC, GFR #### [address] [address] Chloride [Moles/Vol] 99 mmol/L Normal 98-110 [facility] MAIN Comment on above: Performed By: #### A DIFF, ANEU, BMP, CBC, GFR #### [address] [address] CO2 [Moles/Vol] 23 mmol/L Normal 22-32 [facility] MAIN Comment on above: Performed By: #### A DIFF, ANEU, BMP, CBC, GFR #### [address] [address] Creatinine [Mass/Vol] 0.90 mg/dL Normal 0.60-1.40 [facility] MAIN Comment on above: Result Comment: Test ing performed on Musiwave analyzer using enzymatic creatinine methodology. Performed By: #### A DIFF, ANEU, BMP, CBC, GFR #### [address] [address] Electrolyte Balance 12.0 mEq/L Normal 4.0-15.0 [facility] MAIN Comment on above: Performed By: #### A DIFF, ANEU, BMP, CBC, GFR #### [address] [address] Glucose [Mass/Vol] 109 mg/dL Normal 70-110 [facility] MAIN Comment on above: Performed By: #### A DIFF, ANEU, BMP, CBC, GFR #### [address] [address] Potassium [Moles/Vol] 4.1 mmol/L Normal 3.5-5.0 [facility] MAIN Comment on above: Performed By: #### A DIFF, ANEU, BMP, CBC, GFR #### [address] [address] Sodium [Moles/Vol] 134 mmol/L Low 136-145 [facility] MAIN Comment on above: Performed By: #### A DIFF, ANEU, BMP, CBC, GFR #### [address] [address] Urea nitrogen [Mass/Vol] 9.0 mg/dL Normal 8.0-22.0 [facility] MAIN Comment on above: Performed By: #### A DIFF, ANEU, BMP, CBC, GFR #### [address] [address] BUN/Creatinine Ratio 11 ratio Normal 7-27 [facility] Comment on above: Performed By: #### A ELY REYES, BMP, MG, GFR, ADIFF, DIMER, CBC, PBNP, TROPHS #### [address] [address] Calcium [Mass/Vol] 8.7 mg/dL Normal 8.4-10.2 [facility] Comment on above: Performed By: #### A ELY REYES, BMP, MG, GFR, ADIFF, DIMER, CBC, PBNP, TROPHS #### [address] [address] Chloride [Moles/Vol] 99 mmol/L Normal 98-107 [facility] Comment on above: Performed By: #### A ELY REYES, BMP, MG, GFR, ADIFF, DIMER, CBC, PBNP, TROPHS #### [address] [address] CO2 [Moles/Vol] 28 mmol/L Normal 22-29 [facility] Comment on above: Performed By: #### A ELY REYES, BMP, MG, GFR, ADIFF, DIMER, CBC, PBNP, TROPHS #### [address] [address] Creatinine [Mass/Vol] 0.97 mg/dL Normal 0.67-1.17 [facility] Comment on above: Performed By: #### A MD ERICW, BMP, MG, GFR, ADIFF, DIMER, CBC, PBNP, TROPHS #### [address] [address] Electrolyte Balance 6.0 mEq/L Normal 4.0-15.0 [facility] Comment on above: Performed By: #### A MD ERICW, BMP, MG, GFR, ADIFF, DIMER, CBC, PBNP, TROPHS #### [address] [address] Glucose [Mass/Vol] 130 mg/dL High 70-105 [facility] Comment on above: Performed By: #### A MD ERICW, BMP, MG, GFR, ADIFF, DIMER, CBC, PBNP, TROPHS #### [address] [address] Potassium [Moles/Vol] 4.9 mmol/L Normal 3.5-5.1 [facility] Comment on above: Performed By: #### A MD ERICW, BMP, MG, GFR, ADIFF, DIMER, CBC, PBNP, TROPHS #### [address] [address] Sodium [Moles/Vol] 133 mmol/L Low 136-145 [facility] Comment on above: Performed By: #### A MD ERICW, BMP, MG, GFR, ADIFF, DIMER, CBC, PBNP, TROPHS #### [address] [address] Urea nitrogen [Mass/Vol] 11 mg/dL Normal 7-18 [facility] Comment on above: Performed By: #### A MD ERICW, BMP, MG, GFR, ADIFF, DIMER, CBC, PBNP, TROPHS #### [address] [address] CBCon 11-24-2024 Erythrocyte distribution width (RBC) [Ratio] 15.1 % Normal 11.5-15.5 [facility] Comment on above: Performed By: #### A DIFF, ANEU, BMP, CBC, GFR #### [place] [address] Hematocrit (Bld) [Volume fraction] 48.7 % Normal 40.0-52.0 [facility] Comment on above: Performed By: #### A DIFF, ANEU, BMP, CBC, GFR #### [place] [address] Hgb 15.7 G/dL Normal 13.0-17.5 [facility] Comment on above: Performed By: #### A DIFF, ANEU, BMP, CBC, GFR #### [place] [address] MCH (RBC) [Entitic mass] 28.3 pg Normal 27.0-33.0 [facility] Comment on above: Performed By: #### A DIFF, ANEU, BMP, CBC, GFR #### [place] [address] MCHC 32.3 G/dL Normal 32.0-36.0 [facility] Comment on above: Performed By: #### A DIFF, ANEU, BMP, CBC, GFR #### [place] [address] MCV (RBC) [Entitic vol] 87.7 fL Normal 81.0-100.0 [facility] Comment on above: Performed By: #### A DIFF, ANEU, BMP, CBC, GFR #### [place] [address] Platelet 190 10 3/mcL Normal 150-450 [facility] Comment on above: Performed By: #### A DIFF, ANEU, BMP, CBC, GFR #### [place] [address] Platelet mean volume (Bld) [Entitic vol] 8.0 fL Normal 6.4-10.5 [facility] Comment on above: Performed By: #### A DIFF, ANEU, BMP, CBC, GFR #### [place] [address] RBC 5.56 10 6/mcL Normal 4.50-6.00 [facility] Comment on above: Performed By: #### A DIFF, ANEU, BMP, CBC, GFR #### [address] [address] WBC 12.6 10 3/mcL High 4.5-10.8 [facility] Comment on above: Performed By: #### A DIFF, ANEU, BMP, CBC, GFR #### [address] [address] Erythrocyte distribution width (RBC) [Ratio] 15.5 % Normal 11.5-15.5 [facility] Comment on above: Performed By: #### A ERICMDW, BMP, MG, GFR, ADIFF, DIMER, CBC, PBNP, TROPHS #### [place] [id number] Hematocrit (Bld) [Volume fraction] 46.6 % Normal 40.0-52.0 [facility] Comment on above: Performed By: #### A MD ERICW, BMP, MG, GFR, ADIFF, DIMER, CBC, PBNP, TROPHS #### [address] [address] Hgb 15.4 G/dL Normal 13.0-17.5 [facility] Comment on above: Performed By: #### A MD ERICW, BMP, MG, GFR, ADIFF, DIMER, CBC, PBNP, TROPHS #### [address] [address] MCH (RBC) [Entitic mass] 28.8 pg Normal 27.0-33.0 [facility] Comment on above: Performed By: #### A MD ERICW, BMP, MG, GFR, ADIFF, DIMER, CBC, PBNP, TROPHS #### [address] [address] MCHC 33.0 G/dL Normal 32.0-36.0 [facility] Comment on above: Performed By: #### A MD ERICW, BMP, MG, GFR, ADIFF, DIMER, CBC, PBNP, TROPHS #### [address] [address] MCV (RBC) [Entitic vol] 87.4 fL Normal 81.0-100.0 A [facility] Comment on above: Performed By: #### A EYL REYES, BMP, MG, GFR, ADIFF, DIMER, CBC, PBNP, TROPHS #### [address] [address] Platelet 240 10 3/mcL Normal 150-450 [facility] Comment on above: Performed By: #### A ELY REYES, BMP, MG, GFR, ADIFF, DIMER, CBC, PBNP, TROPHS #### [place] [address] Platelet mean volume (Bld) [Entitic vol] 7.8 fL Normal 6.4-10.5 [facility] Comment on above: Performed By: #### A ELY REYES, BMP, MG, GFR, ADIFF, DIMER, CBC, PBNP, TROPHS #### [place] [address] RBC 5.34 10 6/mcL Normal 4.50-6.00 [facility] Comment on above: Performed By: #### A ELY REYES, BMP, MG, GFR, ADIFF, DIMER, CBC, PBNP, TROPHS #### [place] [id number] WBC 16.6 10 3/mcL High 4.5-10.8 [facility] Comment on above: Performed By: #### A ELY REYES, BMP, MG, GFR, ADIFF, DIMER, CBC, PBNP, TROPHS #### [address] [address] [address] ANGIOGRAPHY CHEST W/CONTR [place] 11-24-2024 CT [...] 11/24/2024 6:01:11 AM Ordering Provider: CIRILO PATEL [facility] CT HEAD OR BRAIN W/O CONTRAS Ton [...] 5:55:14 AM Ordering Provider: CIRILO PATEL Normal [facility] DIMERon 11-24-2024 D-Dimer 564 ng/mL D-DU High 0-230 [facility] Comment on above: Result Comment: Spec imen [...] ADIFF, DIMER, CBC, PBNP, TROPHS #### [place] [address] LABORATORYOrdered By: SYSTEM SYSTEM on 11-24-2024 Lactate [...] ng/L Male: 0-54 ng/L Testing performed on [employer] IM analyzer using direct chemiluminescent technology. TSH [...] ng/L Male: 0-76 ng/L Testing performed on [employer] using a homogeneous sandwich chemiluminescent immunoassay based on ISpeak technology. Urea nitrogen [Mass/Vol] 11 mg/dL Normal [...] resistance can occur via multiple mechanisms. A "Not Detected" result for antimicrobial resistance gene(s) does not [...] BCID2 Panel. If BCID panel was negative ("Not Detected") for all targets, this does not exclude [...] Interpretive Data: I f Staphylococcus aureus is "Detected", an Infectious Disease physician consult is required [...] Lactic Acid Lvl 1.0 mmol/L Normal 0.5-2.2 [facility] Comment on above: Performed By: #### A DIFF, ANEU, BMP, CBC, GFR #### [facility] [address] [place] [address] Lactic Acid Lvl 0.4 mmol/L Normal 0.4-2.0 [facility] Comment on above: Order Comment: order ed secondary to Sepsis Alert Performed By: #### A ELY REYES, BMP, MG, GFR, ADIFF, DIMER, CBC, PBNP, TROPHS #### [place] [address] [place], [place] [address] MGon 11-24-2024 Magnesium [Mass/Vol] 2.3 mg/dL Normal 1.6-2.4 [facility] Comment on above: Performed By: #### A DIFF, ANEU, BMP, CBC, GFR #### [address] [address] Magnesium [Mass/Vol] 1.6 mg/dL Low 1.8-2.4 [facility] Comment on above: Performed By: #### A ELY REYES, BMP, MG, GFR, ADIFF, DIMER, CBC, PBNP, TROPHS #### [address] [address] No Panel Informationon 11-24 Microscopic examination of blood, culture Culture has been received in lab and is no growth to date. Routine cultures are held for 5 days. [facility] PBNPon 11-24-2024 Natriuretic peptide B (Bld) [Mass/Vol] 4325 pg/mL High 0-900 [facility] Comment on above: Performed By: #### A DIFF, ANEU, BMP, CBC, GFR #### [facility] [address] [place] [address] Natriuretic peptide B (Bld) [Mass/Vol] 5358 pg/mL High 0-125 [facility] Comment on above: Result Comment: NT-p roBNP results of less than 300 pg/mL effectively rules out acute congestive heart failure with 99% negative predictive value. Performed By: #### A ELY REYES, BMP, MG, GFR, ADIFF, DIMER, CBC, PBNP, TROPHS #### [address] [address] [facility] 11-24-2024 High Sensitivity Troponin I 8 ng/L Normal 0-54 [facility] Comment on above: Result Comment: High Sensitive Troponin I Reference Ranges: Female: 0-34 ng/L Male: 0-54 ng/L Testing performed on [employer] analyzer using direct chemiluminescent technology. Performed By: #### A DIFF, ANEU, BMP, CBC, GFR #### [address] [address] High Sensitivity Troponin I 19 ng/L Normal 0-76 [facility] Comment on above: Result Comment: High Sensitive Troponin I Reference Ranges: Female: 0-51 ng/L Male: 0-76 ng/L Testing performed on [employer] using a homogeneous sandwich chemiluminescent immunoassay based on ISpeak technology. Performed By: #### A ELY REYES, JULIÁN, MG, GFR, ADIFF, DIMER, CBC, PBNP, TROPHS #### [address] [address] [facility] 11-24-2024 TSH 0.855 mIU/mL Normal 0.550-4.780 [facility] Comment on above: Performed By: #### A DIFF, ANEU, BMP, CBC, GFR #### [address] [address] XR CHEST 1 VIEWon 11-24-2024 XR CHEST [...] 11/24/2024 2:03:25 PM Ordering Provider: KARLENE BARCENAS [facility] MAIN Anion gap in Serum or Plasma Ordered By: Dolly Marino on 11-06-2024 Anion gap [Moles/Vol] 9 mmol/L 10-10 [facility] BUN/creatinine ratioOrdered By: Dolly Marino on 11-06-2024 Urea nitrogen/Creatinine [Mass ratio] 14.9 mg/mg 03-17 [facility] Basic Metabolic Profile (BMP )on 11-06-2024 BUN/CRE 14.9 RATIO Normal 03-17 [facility] Comment on above: Order Comment: 210 Performed By: #### L 500.4100, L501.9985 #### [facility] [address] [place], [address] Calcium [Mass/Vol] 9.2 mg/dL Normal 7.6-11.0 [facility] Comment on above: Order Comment: 210 Performed By: #### L 500.4100, L501.9985 #### [facility] [address] [place], [address] Chloride [Moles/Vol] 100 mmol/L Normal 98-108 [facility] Comment on above: Order Comment: 210 Performed By: #### L 500.4100, L501.9985 #### [facility] [address] [place], [address] CO2 [Moles/Vol] 27.9 mmol/L Normal 21.0-32.0 [facility] Comment on above: Order Comment: 210 Performed By: #### L 500.4100, L501.9985 #### [facility] [address] [place], [address] Creatinine [Mass/Vol] 0.87 mg/dL Normal 0.70-1.20 [facility] Comment on above: Order Comment: 210 Performed By: #### L 500.4100, L501.9985 #### [facility] [address] [place], [address] GAP 9 Normal 5-15 [facility] Comment on above: Order Comment: 210 Performed By: #### L 500.4100, L501.9985 #### [facility] [address] [place], [address] GFR/1.73 sq M.predicted among non-blacks MDRD (S/P/Bld) [Vol rate/Area] 103 mL/min/{1.73_m2} Normal >60 [facility] Comment on above: Order Comment: 210 Result Comment: mL/m in/1.73m2 CKD-EPI Creatinine Equation (2020) Performed By: #### L 500.4100, L501.9985 #### [facility] [address] [place], [address] Glucose [Mass/Vol] 104 mg/dL High 70-99 [facility] Comment on above: Order Comment: 210 Performed By: #### L 500.4100, L501.9985 #### [facility] [address] [place], [address] Potassium [Moles/Vol] 4.4 mmol/L Normal 3.3-5.1 [facility] Comment on above: Order Comment: 210 Performed By: #### L 500.4100, L501.9985 #### [facility] [address] [place], [address] Sodium [Moles/Vol] 136 mmol/L Normal 133-145 [facility] Comment on above: Order Comment: 210 Performed By: #### L 500.4100, L501.9985 #### [facility] [address] [place], [place], [address] Urea nitrogen [Mass/Vol] 13 mg/dL Normal 4-19 [facility] Comment on above: Order Comment: 210 Performed By: #### L 500.4100, L501.9985 #### [facility] [address] [place], [place], [address] Carbon dioxide, total [Moles /volume] in Central venous bloodOrdered By: Dolly Marino on 11-06-2024 CO2 [Moles/Vol] 27.9 mmol/L 21.0-32.0 [facility] Chloride assayOrdered By: Darrin Marino on 11-06-2024 Chloride [Moles/Vol] 100 mmol/L 98-108 [facility] Glomerular filtration rate ( GFR) estimation/1.73 sq m using serum, plasma, or whole bOrdered By: Dolly Marino on 11-06-2024 GFR/1.73 sq M.predicted among non-blacks MDRD (S/P/Bld) [Vol rate/Area] 103 mL/min/{1.73_m2} >60 [facility] Comment on above: mL/min/1.73m2 CKD-EP I Creatinine Equation (2020) Potassium measurement (mass/ volume)Ordered By: Dolly Marino on 11-06-2024 Potassium (Unsp spec) [Mass/Vol] 4.4 mmol/L 3.3-5.1 [facility] Serum creatinine measurement (mass/volume)Ordered By: Dolly Marino on 11-06-2024 Creatinine [Mass/Vol] 0.87 mg/dL 0.70-1.20 [facility] Serum glucose measurement (m ass/volume)Ordered By: Dolly Marino on 11-06-2024 Glucose [Mass/Vol] 104 mg/dL High 70-99 [facility] Serum or plasma calcium scott urement (mass/volume)Ordered By: Dolly Marino on 11-06-2024 Calcium [Mass/Vol] 9.2 mg/dL 7.6-11.0 [facility] Serum or plasma urea nitroge n measurement (mass/volume)Ordered By: Dolly Marino on 11-06-2024 Urea nitrogen [Mass/Vol] 13 mg/dL 4-19 [facility] Sodium levelOrdered By: Missael Marino on 11-06-2024 Sodium [Moles/Vol] 136 mmol/L 133-145 [facility] Absolute lymphocyte countOrd ered By: Dolly Marino on 11-04-2024 Lymphocytes Auto (Unsp spec) [#/Vol] 1.05 10*3/uL 0.83-4.51 [facility] Absolute neutrophil countOrd ered By: Dolly Marino on 11-04-2024 Neutrophils (Bld) [#/Vol] 2.8 10*3/uL 2.0-7.7 [facility] Anion gap in Serum or Plasma Ordered By: Dolly Marino on 11-04-2024 Anion gap [Moles/Vol] 10 mmol/L 5-15 [facility] Automated lymphocyte count a s percentage of total leukocytesOrdered By: Dolly Marino on 11-04-2024 Lymphocytes/100 WBC Auto (Unsp spec) 23.5 % 19-41 [facility] BUN/creatinine ratioOrdered By: Dolly Marino on 11-04-2024 Urea nitrogen/Creatinine [Mass ratio] 12.7 mg/mg 10- [facility] Basic Metabolic Profile (BMP )on 11-04-2024 BUN/CRE 12.7 RATIO Normal - [facility] Comment on above: Order Comment: 210.1 Performed By: #### L 500.4100, L501.9985 #### [facility] [address] [place], [address] Calcium [Mass/Vol] 9.0 mg/dL Normal 7.6-11.0 [facility] Comment on above: Order Comment: 210.1 Performed By: #### L 500.4100, L501.9985 #### [facility] [address] [place], [address] Chloride [Moles/Vol] 101 mmol/L Normal 98-108 [facility] Comment on above: Order Comment: 210.1 Performed By: #### L 500.4100, L501.9985 #### [facility] [address] [place], [address] CO2 [Moles/Vol] 28.1 mmol/L Normal 21.0-32.0 [facility] Comment on above: Order Comment: 210.1 Performed By: #### L 500.4100, L501.9985 #### [facility] [address] [place], [address] Creatinine [Mass/Vol] 0.80 mg/dL Normal 0.70-1.20 [facility] Comment on above: Order Comment: 210.1 Performed By: #### L 500.4100, L501.9985 #### [facility] [address] [place], [address] GAP 10 Normal 5-15 [facility] Comment on above: Order Comment: 210.1 Performed By: #### L 500.4100, L501.9985 #### [facility] [address] [place], [address] GFR/1.73 sq M.predicted among non-blacks MDRD (S/P/Bld) [Vol rate/Area] 106 mL/min/{1.73_m2} Normal >60 [facility] Comment on above: Order Comment: 210.1 Result Comment: mL/m in/1.73m2 CKD-EPI Creatinine Equation (2020) Performed By: #### L 500.4100, L501.9985 #### [facility] [address] [place], [address] Glucose [Mass/Vol] 96 mg/dL Normal 70-99 [facility] Comment on above: Order Comment: 210.1 Performed By: #### L 500.4100, L501.9985 #### [facility] [address] [place], [address] Potassium [Moles/Vol] 4.2 mmol/L Normal 3.3-5.1 [facility] Comment on above: Order Comment: 210. Result Comment: Hemo lysis present, Results??could be affected. ?? Performed By: #### L 500.4100, L501.9985 #### [facility] [address] [place], [address] Sodium [Moles/Vol] 139 mmol/L Normal 133-145 [facility] Comment on above: Order Comment: . Performed By: #### L 500.4100, L501.9985 #### [facility] [address] [place], [address] Urea nitrogen [Mass/Vol] 10 mg/dL Normal 4-19 [facility] Comment on above: Order Comment: . Performed By: #### L 500.4100, L501.9985 #### [facility] [address] [place], [address] Basophil percentageOrdered B y: Dolly Marino on 11-04-2024 Basophils/100 WBC (Bld) 0.9 % 0-1 [facility] CBC W/Diff, Automatedon 06-0 Absolute Lymph 1.05 X10 3/uL Normal 0.83-4.51 [facility] Comment on above: Order Comment: . Performed By: #### L 500.4100, L501.9985 #### [facility] [address] [place], [address] Absolute Neut 2.8 X10 3/uL Normal 2.0-7.7 [facility] Comment on above: Order Comment: 210. Performed By: #### L 500.4100, L501.9985 #### [facility] [address] [place], [address] Basophils/100 WBC (Bld) 0.9 % Normal 0-1 [facility] Comment on above: Order Comment: 210.1 Performed By: #### L 500.4100, L501.9985 #### [facility] [address] [place], [address] Eosinophils/100 WBC (Bld) 1.6 % Normal 0-5 [facility] Comment on above: Order Comment: 210.1 Performed By: #### L 500.4100, L501.9985 #### [facility] [address] [place], [address] Erythrocyte distribution width (RBC) [Ratio] 15.8 % High 11.6-14.6 [facility] Comment on above: Order Comment: 210.1 Performed By: #### L 500.4100, L501.9985 #### [facility] [address] [place], [address] Hematocrit (Bld) [Volume fraction] 41.8 % Normal 40-54 [facility] Comment on above: Order Comment: 210.1 Performed By: #### L 500.4100, L501.9985 #### [facility] [address] [place], [address] Hemoglobin (Bld) [Mass/Vol] 13.1 g/dL Normal 13.0-16.5 [facility] Comment on above: Order Comment: 210.1 Performed By: #### L 500.4100, L501.9985 #### [facility] [address] [place], [address] IG% 0.400 Normal 0.0-0.9 [facility] Comment on above: Order Comment: 210.1 Result Comment: IG% - Immature Granulocytes (promyelocytes, myelocytes and metamyelocytes) > 1% indicates that a LEFT SHIFT is Present. Performed By: #### L 500.4100, L501.9985 #### [facility] [address] [place], [address] Lymphocytes/100 WBC (Bld) 23.5 % Normal 19-41 [facility] Comment on above: Order Comment: 210.1 Performed By: #### L 500.4100, L501.9985 #### [facility] [address] [place], [address] MCH (RBC) [Entitic mass] 28.6 pg Normal 27.0-32.0 [facility] Comment on above: Order Comment: 210.1 Performed By: #### L 500.4100, L501.9985 #### [facility] [address] [place], [address] MCHC (RBC) [Mass/Vol] 31.3 g/dL Low 32-36 [facility] Comment on above: Order Comment: 210.1 Performed By: #### L 500.4100, L501.9985 #### [facility] [address] [place], [address] MCV (RBC) [Entitic vol] 91.3 fL Normal 80-94 [facility] Comment on above: Order Comment: 210.1 Performed By: #### L 500.4100, L501.9985 #### [facility] [address] [place], [address] Monocytes/100 WBC (Bld) 11.4 % High 0-10 [facility] Comment on above: Order Comment: 210.1 Performed By: #### L 500.4100, L501.9985 #### [facility] [address] [place], [address] Neutrophils/100 WBC (Bld) 62.2 % Normal 47-70 [facility] Comment on above: Order Comment: 210.1 Performed By: #### L 500.4100, L501.9985 #### [facility] [address] [place], [address] Nucleated RBC (Bld) [#/Vol] 0 10*3/uL Normal 0-5 [facility] Comment on above: Order Comment: 210.1 Performed By: #### L 500.4100, L501.9985 #### [facility] [address] [place], [address] Platelet mean volume (Bld) [Entitic vol] 9.7 fL Normal 6.2-12.0 [facility] Comment on above: Order Comment: 210.1 Performed By: #### L 500.4100, L501.9985 #### [facility] [address] [place], [address] Platelets (Bld) [#/Vol] 185 10*3/uL Normal 150-450 [facility] Comment on above: Order Comment: 210.1 Performed By: #### L 500.4100, L501.9985 #### [facility] [address] [place], [address] RBC (Bld) [#/Vol] 4.58 10*6/uL Low 4.6-6.2 [facility] Comment on above: Order Comment: 210.1 Performed By: #### L 500.4100, L501.9985 #### [facility] [address] [place], [address] RDW SD 53.2 fl High 35.1-43.9 [facility] Comment on above: Order Comment: 210.1 Performed By: #### L 500.4100, L501.9985 #### [facility] [address] [place], [address] WBC (Bld) [#/Vol] 4.5 10*3/uL Normal 4.4-11.0 [facility] Comment on above: Order Comment: 210.1 Performed By: #### L 500.4100, L501.9985 #### [facility] [address] [place], [address] Carbon dioxide, total [Moles /volume] in Central venous bloodOrdered By: Dolly Marino on 11-04-2024 CO2 [Moles/Vol] 28.1 mmol/L 21.0-32.0 [facility] Chloride assayOrdered By: Darrin Marino on 11-04-2024 Chloride [Moles/Vol] 101 mmol/L 98-108 [facility] Eosinophil percentageOrdered By: Dolly Marino on 11-04-2024 Eosinophils/100 WBC (Bld) 1.6 % 0-5 [facility] Erythrocyte distribution wid th ratioOrdered By: Dolly Marino on 11-04-2024 Erythrocyte distribution width (RBC) [Ratio] 15.8 % High 11.6-14.6 [facility] Erythrocyte distribution wid th standard deviationOrdered By: Dolly Marino on 11-04-2024 Erythrocyte distribution width (RBC) [Ratio] 53.2 fl High 35.1-43.9 [facility] Glomerular filtration rate ( GFR) estimation/1.73 sq m using serum, plasma, or whole bOrdered By: Dolly Marino on 11-04-2024 GFR/1.73 sq M.predicted among non-blacks MDRD (S/P/Bld) [Vol rate/Area] 106 mL/min/{1.73_m2} >60 [facility] Comment on above: mL/min/1.73m2 CKD-EP I Creatinine Equation (2020) Hematocrit Auto (Bld) [Volum e fraction]Ordered By: Dolly Marino on 11-04-2024 Hematocrit (Bld) [Volume fraction] 41.8 % 40-54 [facility] Hemoglobin measurementOrdere d By: Dolly Marino on 11-04-2024 Hemoglobin (Bld) [Mass/Vol] 13.1 g/dL 13.0-16.5 [facility] Immature granulocytes/100 WB C Auto (Bld)Ordered By: Dolly Marino on 11-04-2024 Immature granulocytes/100 WBC (Bld) 0.400 % 0.0-0.9 [facility] Comment on above: IG% - Immature Granu locytes (promyelocytes, myelocytes and metamyelocytes) > 1% indicates that a LEFT SHIFT is Present. MCV (mean corpuscular volume ) determinationOrdered By: Dolly Marino on 11-04-2024 MCV (RBC) [Entitic vol] 91.3 fL 80-94 [facility] Magnesiumon 11-04-2024 Magnesium [Mass/Vol] 2.2 mg/dL Normal 1.5-2.2 [facility] Comment on above: Order Comment: 210.1 Performed By: #### L 500.4100, L501.9985 #### [facility] [address] [place], [place], [address] Magnesium measurement (mass/ volume)Ordered By: Dolly Marino on 11-04-2024 Magnesium (Unsp spec) [Mass/Vol] 2.2 mg/dL 1.5-2.2 [facility] Mean corpuscular hemoglobin (MCH) determinationOrdered By: Dolly Marino on 11-04-2024 MCH (RBC) [Entitic mass] 28.6 pg 27.0-32.0 [facility] Mean corpuscular hemoglobin concentration (MCHC) determinationOrdered By: Dolly Marino on 11-04-2024 MCHC (RBC) [Mass/Vol] 31.3 g/dL Low 32-36 [facility] Mean platelet volume determi nationOrdered By: Dolly Marino on 11-04-2024 Platelet mean volume (Bld) [Entitic vol] 9.7 fL 6.2-12.0 [facility] Monocyte percentageOrdered B y: Dolly Marino on 11-04-2024 Monocytes/100 WBC (Bld) 11.4 % High 0-10 [facility] Neutrophil percentageOrdered By: Dolly Marino on 11-04-2024 Neutrophils/100 WBC (Bld) 62.2 % 47-70 [facility] Nucleated red blood cell per centageOrdered By: Dolly Marino on 11-04-2024 Nucleated RBC/100 WBC (Bld) [Ratio] 0 % 0-5 [facility] Platelet countOrdered By: Darrin Marino on 11-04-2024 Platelets (Bld) [#/Vol] 185 10*3/uL 150-450 [facility] Potassium measurement (mass/ volume)Ordered By: Dolly Marino on 11-04-2024 Potassium (Unsp spec) [Mass/Vol] 4.2 mmol/L 3.3-5.1 [facility] Comment on above: Hemolysis present, R esults could be affected. RBC Auto (Bld) [#/Vol]Ordere d By: Dolly Marino on 11-04-2024 RBC (Bld) [#/Vol] 4.58 10*6/uL Low 4.6-6.2 [facility] Serum creatinine measurement (mass/volume)Ordered By: Dolly Marino on 11-04-2024 Creatinine [Mass/Vol] 0.80 mg/dL 0.70-1.20 [facility] Serum glucose measurement (m ass/volume)Ordered By: Dolly Marino on 11-04-2024 Glucose [Mass/Vol] 96 mg/dL 70-99 [facility] Serum or plasma calcium scott urement (mass/volume)Ordered By: Dolly Marino on 11-04-2024 Calcium [Mass/Vol] 9.0 mg/dL 7.6-11.0 [facility] Serum or plasma urea nitroge n measurement (mass/volume)Ordered By: Dolly Marino on 11-04-2024 Urea nitrogen [Mass/Vol] 10 mg/dL 4-19 [facility] Sodium levelOrdered By: Missael Marino on 11-04-2024 Sodium [Moles/Vol] 139 mmol/L 133-145 [facility] White blood cell (WBC) count Ordered By: Dolly Marino on 11-04-2024 WBC (Bld) [#/Vol] 4.5 10*3/uL 4.4-11.0 [facility] Calculated very low density lipoprotein (VLDL) cholesterol measurementOrdered By: Dolly Marino on 10-30-2024 Calculated very low density lipoprotein (VLDL) cholesterol measurement 26 mg/dL 5-40 [facility] Hemoglobin A1con 10-30-2024 HbA1c (Bld) [Mass fraction] 5.8 % High <=5.6 [facility] Comment on above: Result Comment: Norm al < 5.7 % Prediabetic 5.7 - 6.4 % Diabetic >or= 6.5 % Please note range changes. Performed By: #### L 500.4100, L501.9985 #### [facility] [address] [place], [place], [id number] Hemoglobin A1c percentageOrd ered By: Dolly Marino on 10-30-2024 HbA1c (Bld) [Mass fraction] 5.8 % High <5.7 [facility] Comment on above: Normal < 5.7 % Predi abetic 5.7 - 6.4 % Diabetic >or= 6.5 % Please note range changes. LDL calc ser/plasOrdered By: Dolly Marino on 10-30-2024 Cholesterol in LDL [Mass/Vol] 34 mg/dL [facility] Comment on above: Aofenlwzzc=603-003 m g/dL & Higher Plpe=975 mg/dL or greater Lipid Profileon 10-30-2024 CHOL:HDL 3.64 Normal [facility] Comment on above: Performed By: #### L 500.4100, L501.9985 #### [facility] [address] [place], [address] Cholesterol [Mass/Vol] 83 mg/dL Normal <=200 [facility] Comment on above: Result Comment: Chol esterol level, Desirable <200 mg/dL Borderline high cholesterol 200-239 mg/dL High cholesterol >=240 mg/dL Recommendations of the NCEP Adult Treatment Panel for the following risk-cutoff thresholds for the [place]. Performed By: #### L 500.4100, L501.9985 #### [facility] [address] [place], [place], [id number] Cholesterol in HDL [Mass/Vol] 23 mg/dL Low [facility] Comment on above: Result Comment: Fern onal Cholesterol Education Program (NCEP) guidelines: <40 mg/dL: Low HDL-cholesterol (major risk factor for CHD) >= 60 mg/dL: High HDL-cholesterol (negative risk factor for CHD) HDL-cholesterol is affected by a number of factors, e.g. smoking, exercise, hormones, sex and age. Performed By: #### L 500.4100, L501.9985 #### [facility] [address] [place], [address] Cholesterol in LDL [Mass/Vol] 34 mg/dL Normal [facility] Comment on above: Result Comment: Bord gazqzh=696-233 mg/dL Higher Vfwd=763 mg/dL or greater Performed By: #### L 500.4100, L501.9985 #### [facility] [address] [place], [address] Cholesterol in VLDL [Mass/Vol] 26 mg/dL Normal 5-40 [facility] Comment on above: Performed By: #### L 500.4100, L501.9985 #### [facility] [address] [place], [address] Triglyceride [Mass/Vol] 129 mg/dL Normal [facility] Comment on above: Result Comment: The drugs N-Acetylcysteine and Metamizole may falsely depress this assay. Normal range: <150 mg/dL Borderline High: 150-199 mg/dL High: 200-499 mg/dL Very High: >500 mg/dL Performed By: #### L 500.4100, L501.9985 #### [facility] [address] [place], [address] Screening total cholesterol/ high density lipoprotein (HDL) cholesterol ratioOrdered By: Dolly Marino on 10-30-2024 Cholesterol.total/Chio sterol in HDL [Mass ratio] 3.64 {ratio} [facility] Serum or plasma cholesterol in HDL measurement (mass/volume)Ordered By: Dolly Marino on 10-30-2024 Cholesterol in HDL [Mass/Vol] 23 mg/dL Low >40 [facility] Comment on above: National Cholesterol Education Program (NCEP) guidelines:<40 mg/dL: Low HDL-cholesterol (major risk factor for CHD)>= 60 mg/dL: High HDL-cholesterol (negative risk factor for CHD)HDL-cholesterol is affected by a number of factors, e.g. smoking, exercise, hormones, sex and age. Serum or plasma cholesterol measurement (mass/volume)Ordered By: Dolly Marino on 10-30-2024 Cholesterol [Mass/Vol] 83 mg/dL <201 [facility] Comment on above: Cholesterol level, D esirable <200 mg/dLBorderline high cholesterol 200-239 mg/dLHigh cholesterol >=240 mg/dLRecommendations of the NCEP Adult Treatment Panel for the following risk-cutoff thresholds for the [place]. Triglycerides measurementOrd ered By: Dolly Marino on 10-30-2024 Triglyceride [Mass/Vol] 129 mg/dL <199 [facility] Comment on above: The drugs N-Acetylcy steine and Metamizole may falsely depress this assay. Normal range: <150 mg/dLBorderline High: 150-199 mg/dLHigh: 200-499 mg/dLVery High: >500 mg/dL Absolute lymphocyte countOrd ered By: Dolly Marino on 10-28-2024 Lymphocytes Auto (Unsp spec) [#/Vol] 1.07 10*3/uL 0.83-4.51 [facility] Absolute neutrophil countOrd ered By: Dolly Marino on 10-28-2024 Neutrophils (Bld) [#/Vol] 2.8 10*3/uL 2.0-7.7 [facility] Anion gap in Serum or Plasma Ordered By: Dolly Marino on 10-28-2024 Anion gap [Moles/Vol] 10 mmol/L 5-15 [facility] Automated blood erythrocyte countOrdered By: Dolly Marino on 10-28-2024 RBC (Bld) [#/Vol] 4.52 10*6/uL Low 4.6-6.2 [facility] Comment on above: Order Comment: 210 Performed By: #### L 100.0100, L500.2500, L501.9520, L501.5200, L506.1001, L500.4100, L501.1400 #### [facility] [address] [place], [place], [id number] Automated blood hematocrit ( percentage)Ordered By: Dolly Marino on 10-28-2024 Hematocrit (Bld) [Volume fraction] 41.2 % 40-54 [facility] Comment on above: Order Comment: 210 Performed By: #### L 100.0100, L500.2500, L501.9520, L501.5200, L506.1001, L500.4100, L501.1400 #### [facility] [address] [place], [place], [id number] Automated lymphocyte count a s percentage of total leukocytesOrdered By: Dolly Marino on 10-28-2024 Lymphocytes/100 WBC Auto (Unsp spec) 24.0 % 19-41 [facility] BUN/creatinine ratioOrdered By: Dolly Marino on 10-28-2024 Urea nitrogen/Creatinine [Mass ratio] 13.8 mg/mg 10-20 [facility] Basic Metabolic Profile (BMP )on 10-28-2024 BUN/CRE 13.8 RATIO Normal -20 [facility] Comment on above: Order Comment: 210 Performed By: #### L 100.0100, L500.2500, L501.9520, L501.5200, L506.1001, L500.4100, L501.1400 #### [facility] [address] [place], [place], [id number] GAP 10 Normal 5-15 [facility] Comment on above: Order Comment: 210 Performed By: #### L 100.0100, L500.2500, L501.9520, L501.5200, L506.1001, L500.4100, L501.1400 #### [facility] [address] [place], [place], [id number] Potassium [Moles/Vol] 4.1 mmol/L Normal 3.3-5.1 [facility] Comment on above: Order Comment: 210 Performed By: #### L 100.0100, L500.2500, L501.9520, L501.5200, L506.1001, L500.4100, L501.1400 #### [facility] [address] [facility] [place], [place], [id number] Basophil percentageOrdered B y: Dolly Marino on 10-28-2024 Basophils/100 WBC (Bld) 0.7 % 0-1 [facility] Comment on above: Order Comment: 210 Performed By: #### L 100.0100, L500.2500, L501.9520, L501.5200, L506.1001, L500.4100, L501.1400 #### [facility] [address] [facility] [place], [address] CBC W/Diff, Automatedon 06-0 Absolute Lymph 1.07 X10 3/uL Normal 0.83-4.51 [facility] Comment on above: Order Comment: 210 Performed By: #### L 100.0100, L500.2500, L501.9520, L501.5200, L506.1001, L500.4100, L501.1400 #### [facility] [address] [facility] [place], [address] Absolute Neut 2.8 X10 3/uL Normal 2.0-7.7 [facility] Comment on above: Order Comment: 210 Performed By: #### L 100.0100, L500.2500, L501.9520, L501.5200, L506.1001, L500.4100, L501.1400 #### [facility] [address] [facility] [place], [address] (505 IG% 0.400 Normal 0.0-0.9 [facility] Comment on above: Order Comment: 210 Result Comment: IG% - Immature Granulocytes (promyelocytes, myelocytes and metamyelocytes) > 1% indicates that a LEFT SHIFT is Present. Performed By: #### L 100.0100, L500.2500, L501.9520, L501.5200, L506.1001, L500.4100, L501.1400 #### [facility] [address] [place], [address] Lymphocytes/100 WBC (Bld) 24.0 % Normal 19-41 [facility] Comment on above: Order Comment: 210 Performed By: #### L 100.0100, L500.2500, L501.9520, L501.5200, L506.1001, L500.4100, L501.1400 #### [facility] [address] [place], [address] Nucleated RBC (Bld) [#/Vol] 0 10*3/uL Normal 0-5 [facility] Comment on above: Order Comment: 210 Performed By: #### L 100.0100, L500.2500, L501.9520, L501.5200, L506.1001, L500.4100, L501.1400 #### [facility] [address] [place], [address] RDW SD 53.1 fl High 35.1-43.9 [facility] Comment on above: Order Comment: 210 Performed By: #### L 100.0100, L500.2500, L501.9520, L501.5200, L506.1001, L500.4100, L501.1400 #### [facility] [address] [place], [address] Calculated very low density lipoprotein (VLDL) cholesterol measurementOrdered By: Dolly Marino on 10-28-2024 Calculated very low density lipoprotein (VLDL) cholesterol measurement 26 mg/dL 5-40 [facility] Carbon dioxide, total [Moles /volume] in Central venous bloodOrdered By: Dolly Marino on 10-28-2024 CO2 [Moles/Vol] 27.1 mmol/L 21.0-32.0 [facility] Comment on above: Order Comment: 210 Performed By: #### L 100.0100, L500.2500, L501.9520, L501.5200, L506.1001, L500.4100, L501.1400 #### [facility] [address] [place], [place], [id number] Chloride assayOrdered By: Darrin Marino on 10-28-2024 Chloride [Moles/Vol] 98 mmol/L 98-108 [facility] Comment on above: Order Comment: 210 Performed By: #### L 100.0100, L500.2500, L501.9520, L501.5200, L506.1001, L500.4100, L501.1400 #### [facility] [address] [place], [address] Eosinophil percentageOrdered By: Dolly Marino on 10-28-2024 Eosinophils/100 WBC (Bld) 2.0 % 0-5 [facility] Comment on above: Order Comment: 210 Performed By: #### L 100.0100, L500.2500, L501.9520, L501.5200, L506.1001, L500.4100, L501.1400 #### [facility] [address] [place], [address] Erythrocyte distribution wid th ratioOrdered By: Dolly Marino on 10-28-2024 Erythrocyte distribution width (RBC) [Ratio] 15.9 % High 11.6-14.6 [facility] Comment on above: Order Comment: 210 Performed By: #### L 100.0100, L500.2500, L501.9520, L501.5200, L506.1001, L500.4100, L501.1400 #### [facility] [address] [place], [address] Erythrocyte distribution wid th standard deviationOrdered By: Dolly Marino on 10-28-2024 Erythrocyte distribution width (RBC) [Ratio] 53.1 fl High 35.1-43.9 [facility] Glomerular filtration rate ( GFR) estimation/1.73 sq m using serum, plasma, or whole bOrdered By: Dolly Marino on 10-28-2024 GFR/1.73 sq M.predicted among non-blacks MDRD (S/P/Bld) [Vol rate/Area] 108 mL/min/{1.73_m2} >60 [facility] Comment on above: mL/min/1.73m2 CKD-EP I Creatinine Equation (2020) Order Comment: 210 Result Comment: mL/m in/1.73m2 CKD-EPI Creatinine Equation (2020) Performed By: #### L 100.0100, L500.2500, L501.9520, L501.5200, L506.1001, L500.4100, L501.1400 #### [facility] [address] [facility] [place], [place], [id number] Hemoglobin measurementOrdere d By: Dolly Marino on 10-28-2024 Hemoglobin (Bld) [Mass/Vol] 13.0 g/dL 13.0-16.5 [facility] Comment on above: Order Comment: 210 Performed By: #### L 100.0100, L500.2500, L501.9520, L501.5200, L506.1001, L500.4100, L501.1400 #### [facility] [address] [facility] [place], [address] Immature granulocytes/100 WB C Auto (Bld)Ordered By: Dolly Marino on 10-28-2024 Immature granulocytes/100 WBC (Bld) 0.400 % 0.0-0.9 [facility] Comment on above: IG% - Immature Granu locytes (promyelocytes, myelocytes and metamyelocytes) > 1% indicates that a LEFT SHIFT is Present. LDL calc ser/plasOrdered By: Dolly Marino on 10-28-2024 Cholesterol in LDL [Mass/Vol] 46 mg/dL [facility] Comment on above: Vkmulluqrp=326-201 m g/dL & Higher Cafi=728 mg/dL or greater Order Comment: 210 Result Comment: Bord rnlbiq=681-863 mg/dL Higher Writ=418 mg/dL or greater Performed By: #### L 100.0100, L500.2500, L501.9520, L501.5200, L506.1001, L500.4100, L501.1400 #### [facility] [address] [place], [address] Lipid Profileon 10-28-2024 CHOL:HDL 4.07 Normal [facility] Comment on above: Order Comment: 210 Performed By: #### L 100.0100, L500.2500, L501.9520, L501.5200, L506.1001, L500.4100, L501.1400 #### [facility] [address] [place], [address] Cholesterol in VLDL [Mass/Vol] 26 mg/dL Normal 5-40 [facility] Comment on above: Order Comment: 210 Performed By: #### L 100.0100, L500.2500, L501.9520, L501.5200, L506.1001, L500.4100, L501.1400 #### [facility] [address] [place], [address] MCV (mean corpuscular volume ) determinationOrdered By: Dolly Marino on 10-28-2024 MCV (RBC) [Entitic vol] 91.2 fL 80-94 [facility] Comment on above: Order Comment: 210 Performed By: #### L 100.0100, L500.2500, L501.9520, L501.5200, L506.1001, L500.4100, L501.1400 #### [facility] [address] [place], [address] Magnesiumon 10-28-2024 Magnesium [Mass/Vol] 2.2 mg/dL Normal 1.5-2.2 [facility] Comment on above: Order Comment: 210 Performed By: #### L 500.4100, L501.9985 #### [facility] [address] [place], [address] Magnesium measurement (mass/ volume)Ordered By: Dolly Marino on 10-28-2024 Magnesium (Unsp spec) [Mass/Vol] 2.2 mg/dL 1.5-2.2 [facility] Mean corpuscular hemoglobin (MCH) determinationOrdered By: Dolly Marino on 10-28-2024 MCH (RBC) [Entitic mass] 28.8 pg 27.0-32.0 [facility] Comment on above: Order Comment: 210 Performed By: #### L 100.0100, L500.2500, L501.9520, L501.5200, L506.1001, L500.4100, L501.1400 #### [facility] [address] [place], [address] Mean corpuscular hemoglobin concentration (MCHC) determinationOrdered By: Dolly Marino on 10-28-2024 MCHC (RBC) [Mass/Vol] 31.6 g/dL Low 32-36 [facility] Comment on above: Order Comment: 210 Performed By: #### L 100.0100, L500.2500, L501.9520, L501.5200, L506.1001, L500.4100, L501.1400 #### [facility] [address] [place], [address] Mean platelet volume determi nationOrdered By: Dolly Marino on 10-28-2024 Platelet mean volume (Bld) [Entitic vol] 9.6 fL 6.2-12.0 [facility] Comment on above: Order Comment: 210 Performed By: #### L 100.0100, L500.2500, L501.9520, L501.5200, L506.1001, L500.4100, L501.1400 #### [facility] [address] [place], [address] Monocyte percentageOrdered B y: Dolly Marino on 10-28-2024 Monocytes/100 WBC (Bld) 11.0 % High 0-10 [facility] Comment on above: Order Comment: 210 Performed By: #### L 100.0100, L500.2500, L501.9520, L501.5200, L506.1001, L500.4100, L501.1400 #### [facility] [address] [place], [place], [id number] Neutrophil percentageOrdered By: Dolly Marino on 10-28-2024 Neutrophils/100 WBC (Bld) 61.9 % 47-70 [facility] Comment on above: Order Comment: 210 Performed By: #### L 100.0100, L500.2500, L501.9520, L501.5200, L506.1001, L500.4100, L501.1400 #### [facility] [address] [place], [place], [address] Nucleated red blood cell per centageOrdered By: Dolly Marino on 10-28-2024 Nucleated RBC/100 WBC (Bld) [Ratio] 0 % 0-5 [facility] Platelet countOrdered By: Darrin Marino on 10-28-2024 Platelets (Bld) [#/Vol] 154 10*3/uL 150-450 [facility] Comment on above: Order Comment: 210 Performed By: #### L 100.0100, L500.2500, L501.9520, L501.5200, L506.1001, L500.4100, L501.1400 #### [facility] [address] [place], [place], [id number] Potassium measurement (mass/ volume)Ordered By: Dolly Marino on 10-28-2024 Potassium (Unsp spec) [Mass/Vol] 4.1 mmol/L 3.3-5.1 [facility] Screening total cholesterol/ high density lipoprotein (HDL) cholesterol ratioOrdered By: Dolly Marino on 10-28-2024 Cholesterol.total/Chio sterol in HDL [Mass ratio] 4.07 {ratio} [facility] Serum creatinine measurement (mass/volume)Ordered By: Dolly Marino on 10-28-2024 Creatinine [Mass/Vol] 0.74 mg/dL 0.70-1.20 [facility] Comment on above: Order Comment: 210 Performed By: #### L 100.0100, L500.2500, L501.9520, L501.5200, L506.1001, L500.4100, L501.1400 #### [facility] [address] [facility] [place], [place], [id number] Serum glucose measurement (m ass/volume)Ordered By: Dolly Marino on 10-28-2024 Glucose [Mass/Vol] 108 mg/dL High 70-99 [facility] Comment on above: Order Comment: 210 Performed By: #### L 100.0100, L500.2500, L501.9520, L501.5200, L506.1001, L500.4100, L501.1400 #### [facility] [address] [facility] [place], [address] Serum or plasma calcium scott urement (mass/volume)Ordered By: Dolly Marino on 10-28-2024 Calcium [Mass/Vol] 8.9 mg/dL 7.6-11.0 [facility] Comment on above: Order Comment: 210 Performed By: #### L 100.0100, L500.2500, L501.9520, L501.5200, L506.1001, L500.4100, L501.1400 #### [facility] [address] [place], [address] Serum or plasma cholesterol in HDL measurement (mass/volume)Ordered By: Dolly Marino on 10-28-2024 Cholesterol in HDL [Mass/Vol] 23 mg/dL Low >40 [facility] Comment on above: National Cholesterol Education Program (NCEP) guidelines:<40 mg/dL: Low HDL-cholesterol (major risk factor for CHD)>= 60 mg/dL: High HDL-cholesterol (negative risk factor for CHD)HDL-cholesterol is affected by a number of factors, e.g. smoking, exercise, hormones, sex and age. Order Comment: 210 Result Comment: Fern onal Cholesterol Education Program (NCEP) guidelines: <40 mg/dL: Low HDL-cholesterol (major risk factor for CHD) >= 60 mg/dL: High HDL-cholesterol (negative risk factor for CHD) HDL-cholesterol is affected by a number of factors, e.g. smoking, exercise, hormones, sex and age. Performed By: #### L 100.0100, L500.2500, L501.9520, L501.5200, L506.1001, L500.4100, L501.1400 #### [facility] [address] [place], [place], [id number] Serum or plasma cholesterol measurement (mass/volume)Ordered By: Dolly Marino on 10-28-2024 Cholesterol [Mass/Vol] 95 mg/dL <201 [facility] Comment on above: Cholesterol level, D esirable <200 mg/dLBorderline high cholesterol 200-239 mg/dLHigh cholesterol >=240 mg/dLRecommendations of the NCEP Adult Treatment Panel for the following risk-cutoff thresholds for the [place]. Order Comment: 210 Result Comment: Chol esterol level, Desirable <200 mg/dL Borderline high cholesterol 200-239 mg/dL High cholesterol >=240 mg/dL Recommendations of the NCEP Adult Treatment Panel for the following risk-cutoff thresholds for the [place]. Performed By: #### L 100.0100, L500.2500, L501.9520, L501.5200, L506.1001, L500.4100, L501.1400 #### [facility] [address] [place], [address] Serum or plasma urea nitroge n measurement (mass/volume)Ordered By: Dolly Marino on 10-28-2024 Urea nitrogen [Mass/Vol] 10 mg/dL 4-19 [facility] Comment on above: Order Comment: 210 Performed By: #### L 100.0100, L500.2500, L501.9520, L501.5200, L506.1001, L500.4100, L501.1400 #### [facility] [address] [place], [address] Serum or plasma uric acid me asurement (mass/volume)Ordered By: Dolly Marino on 10-28-2024 Urate [Mass/Vol] 5.8 mg/dL 3.5-7.2 [facility] Comment on above: The drugs N-Acetylcy steine and Metamizole may falsely depress this assay. Sodium levelOrdered By: Missael Marino on 10-28-2024 Sodium [Moles/Vol] 135 mmol/L 133-145 [facility] Comment on above: Order Comment: 210 Performed By: #### L 100.0100, L500.2500, L501.9520, L501.5200, L506.1001, L500.4100, L501.1400 #### [facility] [address] [place], [address] TSH DL <= 0.005 mIU/L QnOrde red By: Dolly Marino on 10-28-2024 TSH Qn 3.370 uIU/mL 0.300-4.200 [facility] Thyroid Stim Hormone (TSH)on 10-28-2024 TSH 3.370 uIU/mL Normal 0.300-4.200 [facility] Comment on above: Order Comment: 210 Performed By: #### L 500.4100, L501.9985 #### [facility] [address] [place], [address] Triglycerides measurementOrd ered By: Dolly Marino on 10-28-2024 Triglyceride [Mass/Vol] 129 mg/dL <199 [facility] Comment on above: The drugs N-Acetylcy steine and Metamizole may falsely depress this assay. Normal range: <150 mg/dLBorderline High: 150-199 mg/dLHigh: 200-499 mg/dLVery High: >500 mg/dL Order Comment: 210 Result Comment: The drugs N-Acetylcysteine and Metamizole may falsely depress this assay. Normal range: <150 mg/dL Borderline High: 150-199 mg/dL High: 200-499 mg/dL Very High: >500 mg/dL Performed By: #### L 100.0100, L500.2500, L501.9520, L501.5200, L506.1001, L500.4100, L501.1400 #### [facility] [address] [place], [address] Uric Acidon 10-28-2024 URIC 5.8 mg/dL Normal 3.5-7.2 [facility] Comment on above: Order Comment: 210 Result Comment: The drugs N-Acetylcysteine and Metamizole may falsely depress this assay. Performed By: #### L 500.4100, L501.9985 #### [facility] [address] [place], [address] Vitamin D,25 Hydroxyon 10-28 Vitamin D 25-OH < 6.0 Low 30-100 [facility] Comment on above: Order Comment: 210 Result Comment: Colleen min D Status Deficiency: <20 ng/mL (50nmol/L) Insufficiency: 20-30 ng/mL (50-75 nmol/L) Sufficiency: 30-100 ng/mL (75-250 nmol/L) Toxicity: >100 ng/mL (>250 nmol/L) Performed By: #### L 500.4100, L501.9985 #### [facility] [address] [place], [address] White blood cell (WBC) count Ordered By: Dolly Marino on 10-28-2024 WBC (Bld) [#/Vol] 4.5 10*3/uL 4.4-11.0 [facility] Comment on above: Order Comment: 210 Performed By: #### L 100.0100, L500.2500, L501.9520, L501.5200, L506.1001, L500.4100, L501.1400 #### [facility] Laboratory [address] [place], [address] Anion gap in Serum or Plasma Ordered By: Dolly Marino on 10-24-2024 Anion gap [Moles/Vol] 9 mmol/L 5-15 [facility] BUN/creatinine ratioOrdered By: Dolly Marino on 10-24-2024 Urea nitrogen/Creatinine [Mass ratio] 14.6 mg/mg 10-20 [facility] Bilirubin, totalOrdered By: Dolly Marino on 10-24-2024 Bilirubin [Mass/Vol] 0.31 mg/dL 0.00-1.30 [facility] CBC-Complete Blood Cnt No Di ffon 10-24-2024 Erythrocyte distribution width (RBC) [Ratio] 15.6 % High 11.6-14.6 [facility] Comment on above: Performed By: #### L 100.0500, L500.4050 #### [facility] Laboratory [address] [place], [address] Hematocrit (Bld) [Volume fraction] 40.1 % Normal 40-54 [facility] Comment on above: Performed By: #### L 100.0500, L500.4050 #### [facility] Laboratory [address] [place], [address] Hemoglobin (Bld) [Mass/Vol] 12.7 g/dL Low 13.0-16.5 [facility] Comment on above: Performed By: #### L 100.0500, L500.4050 #### [facility] Laboratory [address] [place], [address] MCH (RBC) [Entitic mass] 28.7 pg Normal 27.0-32.0 [facility] Comment on above: Performed By: #### L 100.0500, L500.4050 #### [facility] Laboratory [address] [place], [address] MCHC (RBC) [Mass/Vol] 31.7 g/dL Low 32-36 [facility] Comment on above: Performed By: #### L 100.0500, L500.4050 #### [facility] Laboratory [address] [place], [address] MCV (RBC) [Entitic vol] 90.7 fL Normal 80-94 [facility] Comment on above: Performed By: #### L 100.0500, L500.4050 #### [facility] Laboratory [address] [place], [address] Platelet mean volume (Bld) [Entitic vol] 9.3 fL Normal 6.2-12.0 [facility] Comment on above: Performed By: #### L 100.0500, L500.4050 #### [facility] Laboratory [address] [place], [address] Platelets (Bld) [#/Vol] 155 10*3/uL Normal 150-450 [facility] Comment on above: Performed By: #### L 100.0500, L500.4050 #### [facility] Laboratory [address] [place], [address] RBC (Bld) [#/Vol] 4.42 10*6/uL Low 4.6-6.2 [facility] Comment on above: Performed By: #### L 100.0500, L500.4050 #### [facility] Laboratory [address] [place], [address] RDW SD 51.8 fl High 35.1-43.9 [facility] Comment on above: Performed By: #### L 100.0500, L500.4050 #### [facility] Laboratory [address] [place], [address] WBC (Bld) [#/Vol] 4.6 10*3/uL Normal 4.4-11.0 [facility] Comment on above: Performed By: #### L 100.0500, L500.4050 #### [facility] Laboratory [address] [place], [address] Carbon dioxide, total [Moles /volume] in Central venous bloodOrdered By: Dolly Marino on 10-24-2024 CO2 [Moles/Vol] 29.2 mmol/L 21.0-32.0 [facility] Chloride assayOrdered By: Darrin Marino on 10-24-2024 Chloride [Moles/Vol] 99 mmol/L 98-108 [facility] Comprehensive Metabolic Prof ilon 10-24-2024 Albumin [Mass/Vol] 3.4 g/dL Low 3.5-5.0 [facility] Comment on above: Performed By: #### L 100.0500, L500.4050 #### [facility] Laboratory [address] [place], [address] Albumin/Globulin [Mass ratio] 1.0 {ratio} Normal 0.9-2.4 [facility] Comment on above: Performed By: #### L 100.0500, L500.4050 #### [facility] Laboratory [address] [place], [address] ALK PHOS 76 U/L Normal 40-129 [facility] Comment on above: Performed By: #### L 100.0500, L500.4050 #### [facility] Laboratory [address] [place], [address] ALT [Catalytic activity/Vol] 6 U/L Normal <=46 [facility] Comment on above: Performed By: #### L 100.0500, L500.4050 #### [facility] Laboratory [address] [place], [address] AST [Catalytic activity/Vol] 18 U/L Normal <=37 [facility] Comment on above: Performed By: #### L 100.0500, L500.4050 #### [facility] Laboratory [address] [place], [address] Bilirubin [Mass/Vol] 0.31 mg/dL Normal 0.00-1.30 [facility] Comment on above: Performed By: #### L 100.0500, L500.4050 #### [facility] Laboratory [address] [place], [address] BUN/CRE 14.6 RATIO Normal 10-20 [facility] Comment on above: Performed By: #### L 100.0500, L500.4050 #### [facility] Laboratory [address] [place], [address] Calcium [Mass/Vol] 9.0 mg/dL Normal 7.6-11.0 [facility] Comment on above: Performed By: #### L 100.0500, L500.4050 #### [facility] Laboratory [address] [place], [address] Chloride [Moles/Vol] 99 mmol/L Normal 98-108 [facility] Comment on above: Performed By: #### L 100.0500, L500.4050 #### [facility] Laboratory [address] [place], [address] CO2 [Moles/Vol] 29.2 mmol/L Normal 21.0-32.0 [facility] Comment on above: Performed By: #### L 100.0500, L500.4050 #### [facility] Laboratory [address] [place], [address] Creatinine [Mass/Vol] 0.65 mg/dL Low 0.70-1.20 [facility] Comment on above: Performed By: #### L 100.0500, L500.4050 #### [facility] Laboratory [address] [place], [address] GAP 9 Normal 5-15 [facility] Comment on above: Performed By: #### L 100.0500, L500.4050 #### [facility] Laboratory [address] [place], [address] GFR/1.73 sq M.predicted among non-blacks MDRD (S/P/Bld) [Vol rate/Area] 113 mL/min/{1.73_m2} Normal >60 [facility] Comment on above: Result Comment: mL/m in/1.73m2 CKD-EPI Creatinine Equation (2020) Performed By: #### L 100.0500, L500.4050 #### [facility] Laboratory [address] [place], [address] Globulin (S) [Mass/Vol] 3.2 g/dL Normal 2.2-4.2 [facility] Comment on above: Performed By: #### L 100.0500, L500.4050 #### [facility] Laboratory [address] [place], [address] Glucose [Mass/Vol] 113 mg/dL High 70-99 [facility] Comment on above: Performed By: #### L 100.0500, L500.4050 #### [facility] Laboratory [address] [place], [address] Potassium [Moles/Vol] 3.8 mmol/L Normal 3.3-5.1 [facility] Comment on above: Performed By: #### L 100.0500, L500.4050 #### [facility] Laboratory [address] [place], [address] Sodium [Moles/Vol] 137 mmol/L Normal 133-145 [facility] Comment on above: Performed By: #### L 100.0500, L500.4050 #### [facility] Laboratory [address] [place], [address] T PROT 6.6 g/dL Normal 5.9-8.4 [facility] Comment on above: Performed By: #### L 100.0500, L500.4050 #### [facility] Laboratory [address] [place], [address] Urea nitrogen [Mass/Vol] 10 mg/dL Normal 4-19 [facility] Comment on above: Performed By: #### L 100.0500, L500.4050 #### [facility] Laboratory [address] [place], [address] Erythrocyte distribution wid th ratioOrdered By: Dolly Marino on 10-24-2024 Erythrocyte distribution width (RBC) [Ratio] 15.6 % High 11.6-14.6 [facility] Erythrocyte distribution wid th standard deviationOrdered By: Dolly Marino on 10-24-2024 Erythrocyte distribution width (RBC) [Ratio] 51.8 fl High 35.1-43.9 [facility] Glomerular filtration rate ( GFR) estimation/1.73 sq m using serum, plasma, or whole bOrdered By: Dolly Marino on 10-24-2024 GFR/1.73 sq M.predicted among non-blacks MDRD (S/P/Bld) [Vol rate/Area] 113 mL/min/{1.73_m2} >60 [facility] Comment on above: mL/min/1.73m2 CKD-EP I Creatinine Equation (2020) Hematocrit Auto (Bld) [Volum e fraction]Ordered By: Dolly Marino on 10-24-2024 Hematocrit (Bld) [Volume fraction] 40.1 % 40-54 [facility] Hemoglobin measurementOrdere d By: Dolly Marino on 10-24-2024 Hemoglobin (Bld) [Mass/Vol] 12.7 g/dL Low 13.0-16.5 [facility] Laboratory - Chemistry and C hemistry - challengeOrdered By: Dolly Marino on 10-24-2024 AST [Catalytic activity/Vol] 18 U/L <38 [facility] MCV (mean corpuscular volume ) determinationOrdered By: Dolly Marino on 10-24-2024 MCV (RBC) [Entitic vol] 90.7 fL 80-94 [facility] Mean corpuscular hemoglobin (MCH) determinationOrdered By: Dolly Marino on 10-24-2024 MCH (RBC) [Entitic mass] 28.7 pg 27.0-32.0 [facility] Mean corpuscular hemoglobin concentration (MCHC) determinationOrdered By: Dolly Marino on 10-24-2024 MCHC (RBC) [Mass/Vol] 31.7 g/dL Low 32-36 [facility] Mean platelet volume determi nationOrdered By: Dolly Marino on 10-24-2024 Platelet mean volume (Bld) [Entitic vol] 9.3 fL 6.2-12.0 [facility] Platelet countOrdered By: Darrin Marino on 10-24-2024 Platelets (Bld) [#/Vol] 155 10*3/uL 150-450 [facility] Potassium measurement (mass/ volume)Ordered By: Dolly Marino on 10-24-2024 Potassium (Unsp spec) [Mass/Vol] 3.8 mmol/L 3.3-5.1 [facility] RBC Auto (Bld) [#/Vol]Ordere d By: Dolly Marino on 10-24-2024 RBC (Bld) [#/Vol] 4.42 10*6/uL Low 4.6-6.2 [facility] Serum creatinine measurement (mass/volume)Ordered By: Dolly Marino on 10-24-2024 Creatinine [Mass/Vol] 0.65 mg/dL Low 0.70-1.20 [facility] Serum globulin measurementOr dered By: Dolly Marino on 10-24-2024 Globulin (S) [Mass/Vol] 3.2 g/dL 2.2-4.2 [facility] Serum glucose measurement (m ass/volume)Ordered By: Dolly Marino on 10-24-2024 Glucose [Mass/Vol] 113 mg/dL High 70-99 [facility] Serum or plasma alanine linda otransferase (ALT) measurementOrdered By: Dolly Marino on 10-24-2024 ALT [Catalytic activity/Vol] 6 U/L <47 [facility] Serum or plasma albumin scott urement (mass/volume)Ordered By: Dolly Marino on 10-24-2024 Albumin [Mass/Vol] 3.4 g/dL Low 3.5-5.0 [facility] Serum or plasma albumin/glob ulin mass ratioOrdered By: Dolly Marino on 10-24-2024 Albumin/Globulin [Mass ratio] 1.0 {ratio} 0.9-2.4 [facility] Serum or plasma alkaline kamaljit sphatase measurementOrdered By: Dolly Marino on 10-24-2024 ALP [Catalytic activity/Vol] 76 U/L 40-129 [facility] Serum or plasma calcium scott urement (mass/volume)Ordered By: Dolly Marino on 10-24-2024 Calcium [Mass/Vol] 9.0 mg/dL 7.6-11.0 [facility] Serum or plasma urea nitroge n measurement (mass/volume)Ordered By: Dolly Marino on 10-24-2024 Urea nitrogen [Mass/Vol] 10 mg/dL 4-19 [facility] Sodium levelOrdered By: Missael Marino [...] Glucose Testing Reason Routine (10/23/24 8:27 PM) [facility] Glucose [Mass/Vol] 168 mg/dL High 70 - 110 mg/dL [facility] LABORATORYOrdered By: Sarah Carrillo on 10-23-2024 Blood Glucose Testing Reason Routine (10/23/24 5:31 PM) [facility] Glucose [Mass/Vol] 146 mg/dL High 70 - 110 mg/dL [facility] LABORATORYOrdered By: Gianna Mendez on 10-23-2024 Blood Glucose Testing Reason Routine (10/23/24 12:15 PM) [facility] Glucose [Mass/Vol] 154 mg/dL High 70 - 110 mg/dL [facility] Comment on above: Result Comment: noti fied nurse SHAHEEN Staples .Auto Diffon 10-20-2024 Basophil, Absolute 0.0 10 3/mcL Normal 0.0-0.3 [facility] Comment on above: Performed By: #### A DIFF, ANEU, BMP, CBC, GFR #### [address] [address] Basophils/100 WBC (Bld) 0.6 % Normal 0.0-2.5 [facility] Comment on above: Performed By: #### A DIFF, ANEU, BMP, CBC, GFR #### [address] [address] Eosinophil, Absolute 0.1 10 3/mcL Normal 0.0-0.7 [facility] Comment on above: Performed By: #### A DIFF, ANEU, BMP, CBC, GFR #### [address] [address] Eosinophils/100 WBC (Bld) 1.5 % Normal 0.0-6.0 [facility] Comment on above: Performed By: #### A DIFF, ANEU, BMP, CBC, GFR #### [address] [address] Lymphocyte, Absolute 1.0 10 3/mcL Normal 0.9-4.3 [facility] Comment on above: Performed By: #### A DIFF, ANEU, BMP, CBC, GFR #### [address] [address] Lymphocytes/100 WBC (Bld) 21.2 % Normal 20.0-40.0 [facility] Comment on above: Performed By: #### A DIFF, ANEU, BMP, CBC, GFR #### [address] [address] Monocyte, Absolute 0.6 10 3/mcL Normal 0.1-1.4 [facility] Comment on above: Performed By: #### A DIFF, ANEU, BMP, CBC, GFR #### [address] [address] Monocytes/100 WBC (Bld) 11.6 % Normal 2.0-13.0 [facility] Comment on above: Performed By: #### A DIFF, ANEU, BMP, CBC, GFR #### [address] [address] Neutrophils/100 WBC (Bld) 65.1 % Normal 50.0-75.0 [facility] Comment on above: Performed By: #### A DIFF, ANEU, BMP, CBC, GFR #### [address] [address] .GFRon 10-20-2024 Estimated Glomerular Filtration Rate 108 ml/min/1.73sqm Normal [facility] Comment on above: Result Comment: Stages [...] eGFR results. Performed By: #### A DIFF, ANEU, BMP, CBC, GFR #### [address] [address] .NEUABSon 10-20-2024 Neutrophil, Absolute 3.2 10 3/mcL Normal 2.3-8.1 [facility] Comment on above: Performed By: #### A DIFF, ANEU, BMP, CBC, GFR #### [address] [address] BMPon 10-20-2024 BUN/Creatinine Ratio 10.8 ratio Normal 10.0-22.0 [facility] Comment on above: Performed By: #### A DIFF, ANEU, BMP, CBC, GFR #### [address] [address] Calcium [Mass/Vol] 8.7 mg/dL Normal 8.7-10.4 [facility] Comment on above: Performed By: #### A DIFF, ANEU, BMP, CBC, GFR #### [address] [address] Chloride [Moles/Vol] 97 mmol/L Low 98-110 [facility] Comment on above: Performed By: #### A DIFF, ANEU, BMP, CBC, GFR #### [address] [address] CO2 [Moles/Vol] 37 mmol/L High 22-32 [facility] Comment on above: Performed By: #### A DIFF, ANEU, BMP, CBC, GFR #### [address] [address] Creatinine [Mass/Vol] 0.74 mg/dL Normal 0.60-1.40 [facility] Comment on above: Result Comment: Test ing performed on Musiwave analyzer using enzymatic creatinine methodology. Performed By: #### A DIFF, ANEU, BMP, CBC, GFR #### [address] [address] Electrolyte Balance 4.0 mEq/L Normal 4.0-15.0 [facility] Comment on above: Performed By: #### A DIFF, ANEU, BMP, CBC, GFR #### [address] [address] Glucose [Mass/Vol] 116 mg/dL High 70-110 [facility] Comment on above: Performed By: #### A DIFF, ANEU, BMP, CBC, GFR #### [address] [address] Potassium [Moles/Vol] 3.5 mmol/L Normal 3.5-5.0 [facility] Comment on above: Performed By: #### A DIFF, ANEU, BMP, CBC, GFR #### [address] [address] Sodium [Moles/Vol] 138 mmol/L Normal 136-145 [facility] Comment on above: Performed By: #### A DIFF, ANEU, BMP, CBC, GFR #### [place] [address] Urea nitrogen [Mass/Vol] 8.0 mg/dL Normal 8.0-22.0 [facility] Comment on above: Performed By: #### A DIFF, ANEU, BMP, CBC, GFR #### [place] [address] CBCon 10-20-2024 Erythrocyte distribution width (RBC) [Ratio] 16.8 % High 11.5-15.5 [facility] Comment on above: Performed By: #### A DIFF, ANEU, BMP, CBC, GFR #### [place] [address] Hematocrit (Bld) [Volume fraction] 41.3 % Normal 40.0-52.0 [facility] Comment on above: Performed By: #### A DIFF, ANEU, BMP, CBC, GFR #### [place] [address] Hgb 13.4 G/dL Normal 13.0-17.5 [facility] Comment on above: Performed By: #### A DIFF, ANEU, BMP, CBC, GFR #### [place] [address] MCH (RBC) [Entitic mass] 28.7 pg Normal 27.0-33.0 [facility] Comment on above: Performed By: #### A DIFF, ANEU, BMP, CBC, GFR #### [place] [address] MCHC 32.4 G/dL Normal 32.0-36.0 [facility] Comment on above: Performed By: #### A DIFF, ANEU, BMP, CBC, GFR #### [place] [address] MCV (RBC) [Entitic vol] 88.5 fL Normal 81.0-100.0 [facility] Comment on above: Performed By: #### A DIFF, ANEU, BMP, CBC, GFR #### [address] [address] Platelet 175 10 3/mcL Normal 150-450 [facility] Comment on above: Performed By: #### A DIFF, ANEU, BMP, CBC, GFR #### [place] [id number] [place] [address] Platelet mean volume (Bld) [Entitic vol] 7.3 fL Normal 6.4-10.5 [facility] Comment on above: Performed By: #### A DIFF, ANEU, BMP, CBC, GFR #### [place] [id number] [place] [address] RBC 4.67 10 6/mcL Normal 4.50-6.00 [facility] Comment on above: Performed By: #### A DIFF, ANEU, BMP, CBC, GFR #### [address] [address] WBC 4.8 10 3/mcL Normal 4.5-10.8 [facility] Comment on above: Performed By: #### A DIFF, ANEU, BMP, CBC, GFR #### [place] [address] LABORATORYOrdered By: SYSTEM SYSTEM on 10-20-2024 Basophils [...] above: Interpretive Data: T esting performed on Musiwave analyzer using enzymatic creatinine methodology. Electrolyte Balance 4.0 mEq/L Normal 4.0 - 15 .0 mEq/L ADM SS Eosinophils (Bld) [#/Vol] 0.1 103/mcL Normal 0.0 - 0.7 10^3/mcL AH Workflow SS Eosinophils/100 WBC (Bld) 1.5 % [...] Basophil, Absolute 0.0 10 3/mcL Normal 0.0-0.3 [facility] Comment on above: Performed By: #### A DIFF, ANEU, BMP, CBC, GFR #### [address] [address] Basophils/100 WBC (Bld) 0.7 % Normal 0.0-2.5 [facility] Comment on above: Performed By: #### A DIFF, ANEU, BMP, CBC, GFR #### [address] [address] Eosinophil, Absolute 0.1 10 3/mcL Normal 0.0-0.7 [facility] Comment on above: Performed By: #### A DIFF, ANEU, BMP, CBC, GFR #### [address] [address] Eosinophils/100 WBC (Bld) 1.9 % Normal 0.0-6.0 [facility] Comment on above: Performed By: #### A DIFF, ANEU, BMP, CBC, GFR #### [address] [address] Lymphocyte, Absolute 1.0 10 3/mcL Normal 0.9-4.3 [facility] Comment on above: Performed By: #### A DIFF, ANEU, BMP, CBC, GFR #### [address] [address] Lymphocytes/100 WBC (Bld) 18.3 % Low 20.0-40.0 [facility] Comment on above: Performed By: #### A DIFF, ANEU, BMP, CBC, GFR #### [address] [address] Monocyte, Absolute 0.5 10 3/mcL Normal 0.1-1.4 [facility] Comment on above: Performed By: #### A DIFF, ANEU, BMP, CBC, GFR #### [address] [address] Monocytes/100 WBC (Bld) 9.1 % Normal 2.0-13.0 [facility] Comment on above: Performed By: #### A DIFF, ANEU, BMP, CBC, GFR #### [address] [address] Neutrophils/100 WBC (Bld) 70.0 % Normal 50.0-75.0 [facility] Comment on above: Performed By: #### A DIFF, ANEU, BMP, CBC, GFR #### [address] [address] .GFRon 10-19-2024 Estimated Glomerular Filtration Rate 109 ml/min/1.73sqm Normal [facility] Comment on above: Result Comment: Stages [...] eGFR results. Performed By: #### A DIFF, ANEU, BMP, CBC, GFR #### [place] [id number] .NEUABSon 10-19-2024 Neutrophil, Absolute 3.8 10 3/mcL Normal 2.3-8.1 [facility] Comment on above: Performed By: #### A DIFF, ANEU, BMP, CBC, GFR #### [place] [id number] BMPon 10-19-2024 BUN/Creatinine Ratio 11.1 ratio Normal 10.0-22.0 [facility] Comment on above: Performed By: #### A DIFF, ANEU, BMP, CBC, GFR #### [place] [address] Calcium [Mass/Vol] 8.7 mg/dL Normal 8.7-10.4 [facility] Comment on above: Performed By: #### A DIFF, ANEU, BMP, CBC, GFR #### [place] [address] Chloride [Moles/Vol] 100 mmol/L Normal 98-110 [facility] Comment on above: Performed By: #### A DIFF, ANEU, BMP, CBC, GFR #### [place] [address] CO2 [Moles/Vol] 33 mmol/L High 22-32 [facility] Comment on above: Performed By: #### A DIFF, ANEU, BMP, CBC, GFR #### [place] [address] Creatinine [Mass/Vol] 0.72 mg/dL Normal 0.60-1.40 [facility] Comment on above: Result Comment: Test ing performed on Musiwave analyzer using enzymatic creatinine methodology. Performed By: #### A DIFF, ANEU, BMP, CBC, GFR #### [place] [address] Electrolyte Balance 4.0 mEq/L Normal 4.0-15.0 [facility] Comment on above: Performed By: #### A DIFF, ANEU, BMP, CBC, GFR #### [address] [address] Glucose [Mass/Vol] 181 mg/dL High 70-110 [facility] Comment on above: Performed By: #### A DIFF, ANEU, BMP, CBC, GFR #### [place] [id number] Potassium [Moles/Vol] 3.5 mmol/L Normal 3.5-5.0 [facility] Comment on above: Performed By: #### A DIFF, ANEU, BMP, CBC, GFR #### [place] [id number] Sodium [Moles/Vol] 137 mmol/L Normal 136-145 [facility] Comment on above: Performed By: #### A DIFF, ANEU, BMP, CBC, GFR #### [place] [address] Urea nitrogen [Mass/Vol] 8.0 mg/dL Normal 8.0-22.0 [facility] Comment on above: Performed By: #### A DIFF, ANEU, BMP, CBC, GFR #### [place] [address] CBCon 10-19-2024 Erythrocyte distribution width (RBC) [Ratio] 17.3 % High 11.5-15.5 [facility] Comment on above: Performed By: #### A DIFF, ANEU, BMP, CBC, GFR #### [place] [id number] Hematocrit (Bld) [Volume fraction] 40.5 % Normal 40.0-52.0 [facility] Comment on above: Performed By: #### A DIFF, ANEU, BMP, CBC, GFR #### [place] [id number] Hgb 13.0 G/dL Normal 13.0-17.5 [facility] Comment on above: Performed By: #### A DIFF, ANEU, BMP, CBC, GFR #### [place] [address] MCH (RBC) [Entitic mass] 28.6 pg Normal 27.0-33.0 [facility] Comment on above: Performed By: #### A DIFF, ANEU, BMP, CBC, GFR #### [place] [address] MCHC 32.1 G/dL Normal 32.0-36.0 [facility] Comment on above: Performed By: #### A DIFF, ANEU, BMP, CBC, GFR #### [place] [address] MCV (RBC) [Entitic vol] 89.2 fL Normal 81.0-100.0 [facility] Comment on above: Performed By: #### A DIFF, ANEU, BMP, CBC, GFR #### [place] [address] Platelet 171 10 3/mcL Normal 150-450 [facility] Comment on above: Performed By: #### A DIFF, ANEU, BMP, CBC, GFR #### [place] [address] Platelet mean volume (Bld) [Entitic vol] 7.6 fL Normal 6.4-10.5 [facility] Comment on above: Performed By: #### A DIFF, ANEU, BMP, CBC, GFR #### [place] [address] RBC 4.54 10 6/mcL Normal 4.50-6.00 [facility] Comment on above: Performed By: #### A DIFF, ANEU, BMP, CBC, GFR #### [place] [address] WBC 5.4 10 3/mcL Normal 4.5-10.8 [facility] Comment on above: Performed By: #### A DIFF, ANEU, BMP, CBC, GFR #### [place] [address] LABORATORYOrdered By: SYSTEM SYSTEM on 10-19-2024 Basophils [...] 33 mmol/L High 22 - 32 mEq/L AH ADM SS Creatinine [Mass/Vol] 0.72 mg/dL Normal 0.60 - 1.40 mg/dL ADM SS Comment on above: Interpretive Data: T esting performed on Musiwave analyzer using enzymatic creatinine methodology. Electrolyte Balance [...] 13.0 G/dL Normal 13.0 - 17.5 G/dL Workflow SS Lymphocytes (Bld) [#/Vol] 1.0 103/mcL Normal 0.9 - 4.3 10^3/mcL Workflow SS Lymphocytes/100 WBC (Bld) 18.3 % [...] AH ADM SS Urea nitrogen/Creatinine [Mass ratio] 11.1 ratio Normal 10.0 - 22.0 ratio AH ADM SS WBC (Bld) [#/Vol] 5.4 103/mcL Normal 4.5 - 10.8 10^3/mcL Workflow SS .Auto Diffon 10-18-2024 Basophil, Absolute 0.0 10 3/mcL Normal 0.0-0.3 [facility] MAIN Comment on above: Performed By: #### C BC, MG, GFR, ADIFF, BMP, ANEU #### [facility] [address] [place] [address] Basophils/100 WBC (Bld) 0.6 % Normal 0.0-2.5 [facility] MA[facility] Comment on above: Performed By: #### C BC, MG, GFR, ADIFF, BMP, ANEU #### [address] [address] Eosinophil, Absolute 0.1 10 3/mcL Normal 0.0-0.7 [facility] Comment on above: Performed By: #### C BC, MG, GFR, ADIFF, BMP, ANEU #### [address] [address] Eosinophils/100 WBC (Bld) 1.7 % Normal 0.0-6.0 [facility]IN Comment on above: Performed By: #### C BC, MG, GFR, ADIFF, BMP, ANEU #### [address] [address] Lymphocyte, Absolute 1.2 10 3/mcL Normal 0.9-4.3 [facility] Comment on above: Performed By: #### C BC, MG, GFR, ADIFF, BMP, ANEU #### [address] [address] Lymphocytes/100 WBC (Bld) 19.0 % Low 20.0-40.0 [facility] MAIN Comment on above: Performed By: #### C BC, MG, GFR, ADIFF, BMP, ANEU #### [address] [address] Monocyte, Absolute 0.9 10 3/mcL Normal 0.1-1.4 [facility] Comment on above: Performed By: #### C BC, MG, GFR, ADIFF, BMP, ANEU #### [address] [address] Monocytes/100 WBC (Bld) 14.1 % High 2.0-13.0 [facility]IN Comment on above: Performed By: #### C BC, MG, GFR, ADIFF, BMP, ANEU #### [address] [address] Neutrophils/100 WBC (Bld) 64.6 % Normal 50.0-75.0 [facility] MAIN Comment on above: Performed By: #### C BC, MG, GFR, ADIFF, BMP, ANEU #### [address] [address] Basophil, Absolute 0.0 10 3/mcL Normal 0.0-0.3 [facility] Comment on above: Performed By: #### C BC, MG, GFR, ADIFF, BMP, ANEU #### [address] [address] Basophils/100 WBC (Bld) 0.4 % Normal 0.0-2.5 [facility] MA[facility] Comment on above: Performed By: #### C BC, MG, GFR, ADIFF, BMP, ANEU #### [address] [address] Eosinophil, Absolute 0.1 10 3/mcL Normal 0.0-0.7 [facility] Comment on above: Performed By: #### C BC, MG, GFR, ADIFF, BMP, ANEU #### [address] [address] Eosinophils/100 WBC (Bld) 1.2 % Normal 0.0-6.0 [facility] MAIN Comment on above: Performed By: #### C BC, MG, GFR, ADIFF, BMP, ANEU #### [address] [address] Lymphocyte, Absolute 0.7 10 3/mcL Low 0.9-4.3 [facility] Comment on above: Performed By: #### C BC, MG, GFR, ADIFF, BMP, ANEU #### [address] [address] Lymphocytes/100 WBC (Bld) 16.1 % Low 20.0-40.0 [facility] MAIN Comment on above: Performed By: #### C BC, MG, GFR, ADIFF, BMP, ANEU #### [address] [address] Monocyte, Absolute 0.5 10 3/mcL Normal 0.1-1.4 [facility] Comment on above: Performed By: #### C BC, MG, GFR, ADIFF, BMP, ANEU #### [address] [address] Monocytes/100 WBC (Bld) 11.8 % Normal 2.0-13.0 [facility] MA[facility] Comment on above: Performed By: #### C BC, MG, GFR, ADIFF, BMP, ANEU #### [address] [address] Neutrophils/100 WBC (Bld) 70.5 % Normal 50.0-75.0 [facility] MAIN Comment on above: Performed By: #### C BC, MG, GFR, ADIFF, BMP, ANEU #### [address] [address] .GFRon 10-18-2024 Estimated Glomerular Filtration Rate 112 ml/min/1.73sqm [facility] MAIN Comment on above: Result Comment: [...] calculate the eGFR results. Performed By: #### C BC, MG, GFR, ADIFF, BMP, ANEU #### [address] [address] Estimated Glomerular Filtration Rate 114 ml/min/1.73sqm [facility] MAIN Comment on above: Result Comment: [...] calculate the eGFR results. Performed By: #### C BC, MG, GFR, ADIFF, BMP, ANEU #### [address] [address] .NEUABSon 10-18-2024 Neutrophil, Absolute 3.9 10 3/mcL Normal 2.3-8.1 [facility] MAIN Comment on above: Performed By: #### C BC, MG, GFR, ADIFF, BMP, ANEU #### [place] [address] Neutrophil, Absolute 3.3 10 3/mcL Normal 2.3-8.1 [facility] MA[facility] Comment on above: Performed By: #### C BC, MG, GFR, ADIFF, BMP, ANEU #### [address] 10-18-2024 BUN/Creatinine Ratio 9.0 ratio Low 10.0-22.0 [facility] Comment on above: Performed By: #### C BC, MG, GFR, ADIFF, BMP, ANEU #### [place] [address] Calcium [Mass/Vol] 8.7 mg/dL Normal 8.7-10.4 [facility] MAIN Comment on above: Performed By: #### C BC, MG, GFR, ADIFF, BMP, ANEU #### [place] [address] Chloride [Moles/Vol] 99 mmol/L Normal 98-110 [facility] MAIN Comment on above: Performed By: #### C BC, MG, GFR, ADIFF, BMP, ANEU #### [place] [id number] CO2 [Moles/Vol] 33 mmol/L High 22-32 [facility] MAIN Comment on above: Performed By: #### C BC, MG, GFR, ADIFF, BMP, ANEU #### [place] [id number] Creatinine [Mass/Vol] 0.67 mg/dL Normal 0.60-1.40 [facility] MAIN Comment on above: Result Comment: Test ing performed on Musiwave analyzer using enzymatic creatinine methodology. Performed By: #### C BC, MG, GFR, ADIFF, BMP, ANEU #### [address] [address] Electrolyte Balance 5.0 mEq/L Normal 4.0-15.0 [facility] MAIN Comment on above: Performed By: #### C BC, MG, GFR, ADIFF, BMP, ANEU #### [address] [address] Glucose [Mass/Vol] 115 mg/dL High 70-110 [facility] MAIN Comment on above: Performed By: #### C BC, MG, GFR, ADIFF, BMP, ANEU #### [place] [id number] Potassium [Moles/Vol] 3.4 mmol/L Low 3.5-5.0 [facility] MAIN Comment on above: Performed By: #### C BC, MG, GFR, ADIFF, BMP, ANEU #### [place] [id number] Sodium [Moles/Vol] 137 mmol/L Normal 136-145 [facility] MAIN Comment on above: Performed By: #### C BC, MG, GFR, ADIFF, BMP, ANEU #### [place] [id number] Urea nitrogen [Mass/Vol] 6.0 mg/dL Low 8.0-22.0 [facility] MAIN Comment on above: Performed By: #### C BC, MG, GFR, ADIFF, BMP, ANEU #### [place] [id number] BUN/Creatinine Ratio Unable to Calculate Normal 10.0-2 2.0 [facility] MAIN Comment on above: Order Comment: Plejonah e draw daily labs at 3 AM for 3 days Result Comment: Unab le to calculate this test result accurately. Results used to calculate this test are outside the reportable range. Performed By: #### C BC, MG, GFR, ADIFF, BMP, ANEU #### [address] [address] Urea nitrogen [Mass/Vol] mg/dL Low 8.0-22.0 [facility] MAIN Comment on above: Order Comment: Pleas e draw daily labs at 3 AM for 3 days Performed By: #### C BC, MG, GFR, ADIFF, BMP, ANEU #### [address] [address] Calcium [Mass/Vol] 9.2 mg/dL Normal 8.7-10.4 [facility] MAIN Comment on above: Order Comment: Pleas e draw daily labs at 3 AM for 3 days Performed By: #### C BC, MG, GFR, ADIFF, BMP, ANEU #### [address] [address] Chloride [Moles/Vol] 101 mmol/L Normal 98-110 [facility] MAIN Comment on above: Order Comment: Pleas e draw daily labs at 3 AM for 3 days Performed By: #### C BC, MG, GFR, ADIFF, BMP, ANEU #### [address] [address] CO2 [Moles/Vol] 33 mmol/L High 22-32 [facility] MAIN Comment on above: Order Comment: Pleas e draw daily labs at 3 AM for 3 days Performed By: #### C BC, MG, GFR, ADIFF, BMP, ANEU #### [address] [address] Creatinine [Mass/Vol] 0.63 mg/dL Normal 0.60-1.40 [facility] MAIN Comment on above: Order Comment: Pleas e draw daily labs at 3 AM for 3 days Result Comment: Test ing performed on Musiwave analyzer using enzymatic creatinine methodology. Performed By: #### C BC, MG, GFR, ADIFF, BMP, ANEU #### [address] [address] Electrolyte Balance 5.0 mEq/L Normal 4.0-15.0 [facility] MAIN Comment on above: Order Comment: Pleas e draw daily labs at 3 AM for 3 days Performed By: #### C BC, MG, GFR, ADIFF, BMP, ANEU #### [address] [address] Glucose [Mass/Vol] 110 mg/dL Normal 70-110 [facility] MAIN Comment on above: Order Comment: Pleas e draw daily labs at 3 AM for 3 days Performed By: #### C BC, MG, GFR, ADIFF, BMP, ANEU #### [place] [address] Potassium [Moles/Vol] 3.6 mmol/L Normal 3.5-5.0 [facility] MAIN Comment on above: Order Comment: Pleas e draw daily labs at 3 AM for 3 days Performed By: #### C BC, MG, GFR, ADIFF, BMP, ANEU #### [place] [address] Sodium [Moles/Vol] 139 mmol/L Normal 136-145 [facility] MAIN Comment on above: Order Comment: Pleas e draw daily labs at 3 AM for 3 days Performed By: #### C BC, MG, GFR, ADIFF, BMP, ANEU #### [address] [address] CBCon 10-18-2024 Erythrocyte distribution width (RBC) [Ratio] 17.3 % High 11.5-15.5 [facility] MAIN Comment on above: Performed By: #### C BC, MG, GFR, ADIFF, BMP, ANEU #### [place] [address] Hematocrit (Bld) [Volume fraction] 41.4 % Normal 40.0-52.0 [facility] MAIN Comment on above: Performed By: #### C BC, MG, GFR, ADIFF, BMP, ANEU #### [place] [id number] Hgb 13.5 G/dL Normal 13.0-17.5 [facility] MAIN Comment on above: Performed By: #### C BC, MG, GFR, ADIFF, BMP, ANEU #### [place] [address] MCH (RBC) [Entitic mass] 28.9 pg Normal 27.0-33.0 [facility] MAIN Comment on above: Performed By: #### C BC, MG, GFR, ADIFF, BMP, ANEU #### [place] [address] MCHC 32.7 G/dL Normal 32.0-36.0 [facility] MAIN Comment on above: Performed By: #### C BC, MG, GFR, ADIFF, BMP, ANEU #### [place] [address] MCV (RBC) [Entitic vol] 88.4 fL Normal 81.0-100.0 [facility] MAIN Comment on above: Performed By: #### C BC, MG, GFR, ADIFF, BMP, ANEU #### [place] [address] Platelet 158 10 3/mcL Normal 150-450 [facility] MAIN Comment on above: Performed By: #### C BC, MG, GFR, ADIFF, BMP, ANEU #### [place] [address] Platelet mean volume (Bld) [Entitic vol] 7.9 fL Normal 6.4-10.5 [facility] MAIN Comment on above: Performed By: #### C BC, MG, GFR, ADIFF, BMP, ANEU #### [place] [address] RBC 4.68 10 6/mcL Normal 4.50-6.00 [facility] MAIN Comment on above: Performed By: #### C BC, MG, GFR, ADIFF, BMP, ANEU #### [place] [address] WBC 6.1 10 3/mcL Normal 4.5-10.8 [facility] MAIN Comment on above: Performed By: #### C BC, MG, GFR, ADIFF, BMP, ANEU #### [place] [address] Erythrocyte distribution width (RBC) [Ratio] 16.9 % High 11.5-15.5 [facility] MAIN Comment on above: Order Comment: QNS Performed By: #### C BC, MG, GFR, ADIFF, BMP, ANEU #### [place] [address] Hematocrit (Bld) [Volume fraction] 41.4 % Normal 40.0-52.0 [facility] MAIN Comment on above: Order Comment: QNS Performed By: #### C BC, MG, GFR, ADIFF, BMP, ANEU #### [place] [address] Hgb 13.6 G/dL Normal 13.0-17.5 [facility] MAIN Comment on above: Order Comment: QNS Performed By: #### C BC, MG, GFR, ADIFF, BMP, ANEU #### [place] [address] MCH (RBC) [Entitic mass] 29.0 pg Normal 27.0-33.0 [facility] MAIN Comment on above: Order Comment: QNS Performed By: #### C BC, MG, GFR, ADIFF, BMP, ANEU #### [place] [address] MCHC 32.8 G/dL Normal 32.0-36.0 [facility] MAIN Comment on above: Order Comment: QNS Performed By: #### C BC, MG, GFR, ADIFF, BMP, ANEU #### [place] [address] MCV (RBC) [Entitic vol] 88.3 fL Normal 81.0-100.0 [facility] MAIN Comment on above: Order Comment: QNS Performed By: #### C BC, MG, GFR, ADIFF, BMP, ANEU #### [place] [address] Platelet 127 10 3/mcL Low 150-450 [facility] MAIN Comment on above: Order Comment: QNS Performed By: #### C BC, MG, GFR, ADIFF, BMP, ANEU #### [place] [address] Platelet mean volume (Bld) [Entitic vol] 7.7 fL Normal 6.4-10.5 [facility] MAIN Comment on above: Order Comment: QNS Performed By: #### C BC, MG, GFR, ADIFF, BMP, ANEU #### [place] [address] RBC 4.70 10 6/mcL Normal 4.50-6.00 [facility] MAIN Comment on above: Order Comment: QNS Performed By: #### C BC, MG, GFR, ADIFF, BMP, ANEU #### [address] [address] WBC 4.6 10 3/mcL Normal 4.5-10.8 [facility] MAIN Comment on above: Order Comment: QNS Performed By: #### C BC, MG, GFR, ADIFF, BMP, ANEU #### [address] [address] LABORATORYOrdered By: SYSTEM SYSTEM on 10-18-2024 Basophils [...] 0.67 mg/dL Normal 0.60 - 1.40 mg/dL AH ADM SS Comment on above: Interpretive Data: T esting performed on Musiwave analyzer using enzymatic creatinine methodology. Electrolyte Balance [...] Basophil, Absolute 0.0 10 3/mcL Normal 0.0-0.3 [facility] MAIN Comment on above: Performed By: #### A DIFF, ANEU, BMP, CBC, GFR #### [address] [address] Basophils/100 WBC (Bld) 0.6 % Normal 0.0-2.5 [facility] MAIN Comment on above: Performed By: #### A DIFF, ANEU, BMP, CBC, GFR #### [address] [address] Eosinophil, Absolute 0.1 10 3/mcL Normal 0.0-0.7 [facility] MAIN Comment on above: Performed By: #### A DIFF, ANEU, BMP, CBC, GFR #### [address] [address] Eosinophils/100 WBC (Bld) 1.1 % Normal 0.0-6.0 [facility] MAIN Comment on above: Performed By: #### A DIFF, ANEU, BMP, CBC, GFR #### [address] [address] Lymphocyte, Absolute 0.9 10 3/mcL Normal 0.9-4.3 [facility] MAIN Comment on above: Performed By: #### A DIFF, ANEU, BMP, CBC, GFR #### [address] [address] Lymphocytes/100 WBC (Bld) 17.7 % Low 20.0-40.0 [facility] MAIN Comment on above: Performed By: #### A DIFF, ANEU, BMP, CBC, GFR #### [address] [address] Monocyte, Absolute 0.6 10 3/mcL Normal 0.1-1.4 [facility] MAIN Comment on above: Performed By: #### A DIFF, ANEU, BMP, CBC, GFR #### [address] [address] Monocytes/100 WBC (Bld) 11.1 % Normal 2.0-13.0 [facility] MAIN Comment on above: Performed By: #### A DIFF, ANEU, BMP, CBC, GFR #### [address] [address] Neutrophils/100 WBC (Bld) 69.5 % Normal 50.0-75.0 [facility] MAIN Comment on above: Performed By: #### A DIFF, ANEU, BMP, CBC, GFR #### [address] [address] .GFRon 10-17-2024 Estimated Glomerular Filtration Rate 113 ml/min/1.73sqm Normal [facility] MAIN Comment on above: Result Comment: Stages [...] eGFR results. Performed By: #### A DIFF, ANEU, BMP, CBC, GFR #### [address] [address] .NEUABSon 10-17-2024 Neutrophil, Absolute 3.7 10 3/mcL Normal 2.3-8.1 [facility] MAIN Comment on above: Performed By: #### A DIFF, ANEU, BMP, CBC, GFR #### [address] [address] BMPon 10-17-2024 BUN/Creatinine Ratio 7.7 ratio Low 10.0-22.0 [facility] MAIN Comment on above: Performed By: #### A DIFF, ANEU, BMP, CBC, GFR #### [address] [address] Calcium [Mass/Vol] 8.5 mg/dL Low 8.7-10.4 [facility] MAIN Comment on above: Performed By: #### A DIFF, ANEU, BMP, CBC, GFR #### [address] [address] Chloride [Moles/Vol] 101 mmol/L Normal 98-110 [facility] MAIN Comment on above: Performed By: #### A DIFF, ANEU, BMP, CBC, GFR #### [address] [address] CO2 [Moles/Vol] 31 mmol/L Normal 22-32 [facility] MAIN Comment on above: Performed By: #### A DIFF, ANEU, BMP, CBC, GFR #### [address] [address] Creatinine [Mass/Vol] 0.65 mg/dL Normal 0.60-1.40 [facility] MAIN Comment on above: Result Comment: Test ing performed on Musiwave analyzer using enzymatic creatinine methodology. Performed By: #### A DIFF, ANEU, BMP, CBC, GFR #### [address] [address] Electrolyte Balance 7.0 mEq/L Normal 4.0-15.0 [facility] MAIN Comment on above: Performed By: #### A DIFF, ANEU, BMP, CBC, GFR #### [address] [address] Glucose [Mass/Vol] 120 mg/dL High 70-110 [facility] MAIN Comment on above: Performed By: #### A DIFF, ANEU, BMP, CBC, GFR #### [address] [address] Potassium [Moles/Vol] 3.3 mmol/L Low 3.5-5.0 [facility] MAIN Comment on above: Performed By: #### A DIFF, ANEU, BMP, CBC, GFR #### [address] [address] Sodium [Moles/Vol] 139 mmol/L Normal 136-145 [facility] MAIN Comment on above: Performed By: #### A DIFF, ANEU, BMP, CBC, GFR #### [place] [address] Urea nitrogen [Mass/Vol] 5.0 mg/dL Low 8.0-22.0 [facility] MAIN Comment on above: Performed By: #### A DIFF, ANEU, BMP, CBC, GFR #### [place] [address] CBCon 10-17-2024 Erythrocyte distribution width (RBC) [Ratio] 17.0 % High 11.5-15.5 [facility] MAIN Comment on above: Performed By: #### A DIFF, ANEU, BMP, CBC, GFR #### [place] [address] Hematocrit (Bld) [Volume fraction] 40.3 % Normal 40.0-52.0 [facility] MAIN Comment on above: Performed By: #### A DIFF, ANEU, BMP, CBC, GFR #### [place] [address] Hgb 13.2 G/dL Normal 13.0-17.5 [facility] MAIN Comment on above: Performed By: #### A DIFF, ANEU, BMP, CBC, GFR #### [place] [address] MCH (RBC) [Entitic mass] 28.6 pg Normal 27.0-33.0 [facility] MAIN Comment on above: Performed By: #### A DIFF, ANEU, BMP, CBC, GFR #### [place] [address] MCHC 32.6 G/dL Normal 32.0-36.0 [facility] MAIN Comment on above: Performed By: #### A DIFF, ANEU, BMP, CBC, GFR #### [place] [address] MCV (RBC) [Entitic vol] 87.6 fL Normal 81.0-100.0 [facility] MAIN Comment on above: Performed By: #### A DIFF, ANEU, BMP, CBC, GFR #### [place] [id number] [place] [address] Platelet 132 10 3/mcL Low 150-450 [facility] MAIN Comment on above: Performed By: #### A DIFF, ANEU, BMP, CBC, GFR #### [facility] [address] [place] [address] Platelet mean volume (Bld) [Entitic vol] 7.8 fL Normal 6.4-10.5 [facility] MAIN Comment on above: Performed By: #### A DIFF, ANEU, BMP, CBC, GFR #### [facility] [address] [place] [address] RBC 4.60 10 6/mcL Normal 4.50-6.00 [facility] MAIN Comment on above: Performed By: #### A DIFF, ANEU, BMP, CBC, GFR #### [facility] [address] [place] [address] WBC 5.4 10 3/mcL Normal 4.5-10.8 [facility] MAIN Comment on above: Performed By: #### A DIFF, ANEU, BMP, CBC, GFR #### [place] [address] [place] [address] ANKLE W/O CONTRAST RIGHTo n 10-17-2024 [...] spanning external fixator, multiplanar 10/17. [facility] for right ankle fracture with dislocation. [...] 10/17/2024 1:17:29 PM Ordering Provider: SUZE MISHRA [facility] MAIN LABORATORYOrdered By: SYSTEM SYSTEM on 10-17-2024 PT Coag (PPP) [Time] 13.7 s Normal 9.0 - 1 4.4 seconds Lala Comment on above: Interpretive Data: E ffective 12/11/07, Protime results may be affected by some antibiotics (i.e. Ciprofloxacin, Azithromycin, Bactrim) which may potentiate the action of oral anticoagulants, with further increases in Protime/INR. PT International Ratio 1.2 ratio Invalid Interpretation Code Lala Comment on above: Interpretive Data: Baljinder linn [employer] (CHEST, 1991, 102:[id number]) recommended therapeutic range for oral anticoagulant therapy is: LOW RISK: Prophylaxis of venous thrombosis INR: 2.0-3.0 Treatment of pulmonary embolism 2.0-3.0 Prevention of systemic embolism 2.0-3.0 HIGH RISK: Mechanical prosthetic valves 2.5-3.5 PROon 10-17-2024 INR Coag (PPP) [Relative time] 1.2 {INR} [facility] MAIN Comment on above: Result Comment: [employer] (CHEST, 1991, [id number]) recommended therapeutic range for oral anticoagulant therapy is: LOW RISK: Prophylaxis of venous thrombosis INR: 2.0-3.0 Treatment of pulmonary embolism 2.0-3.0 Prevention of systemic embolism 2.0-3.0 HIGH RISK: Mechanical prosthetic valves 2.5-3.5 Performed By: #### A DIFF, ANEU, BMP, CBC, GFR #### [address] [address] PT Coag (PPP) [Time] 13.7 s Normal 9.0-14.4 [facility] MAIN Comment on above: Result Comment: Effe ctive 12/11/07, Protime results may be affected by some antibiotics (i.e. Ciprofloxacin, Azithromycin, Bactrim) which may potentiate the action of oral anticoagulants, with further increases in Protime/INR. Performed By: #### A DIFF, ANEU, BMP, CBC, GFR #### [address] [address] XR FLUORO 1-2 HRS TECH TIMEo n [...] Intraoperative fluoroscopic images. Please refer to the needle felt making machine operator's report for further information. I have personally reviewed the images of this examination and agree with the resident's findings and interpretation. Interpreted by: Beau Wahl Preliminary Report By: Nadya Hudson Electronically signed By Beau Wahl Dictated Date: 10/17/2024 1:42:02 PM Prelim Date: 10/17/2024 2:15:08 PM Sign Date: 10/17/2024 2:15:08 PM Ordering Provider: NANI Kate [facility] MAIN .Auto Diffon 10-16-2024 Basophil, Absolute 0.1 10 3/mcL Normal 0.0-0.3 [facility] MAIN Comment on above: Performed By: #### C BC, MG, GFR, ADIFF, BMP, ANEU #### [address] [address] Basophils/100 WBC (Bld) 0.8 % Normal 0.0-2.5 [facility] MAIN Comment on above: Performed By: #### C BC, MG, GFR, ADIFF, BMP, ANEU #### [address] [address] Eosinophil, Absolute 0.1 10 3/mcL Normal 0.0-0.7 [facility] MAIN Comment on above: Performed By: #### C BC, MG, GFR, ADIFF, BMP, ANEU #### [address] [address] Eosinophils/100 WBC (Bld) 1.2 % Normal 0.0-6.0 [facility] MAIN Comment on above: Performed By: #### C BC, MG, GFR, ADIFF, BMP, ANEU #### [address] [address] Lymphocyte, Absolute 1.4 10 3/mcL Normal 0.9-4.3 [facility] MAIN Comment on above: Performed By: #### C BC, MG, GFR, ADIFF, BMP, ANEU #### [address] [address] Lymphocytes/100 WBC (Bld) 19.8 % Low 20.0-40.0 [facility] MAIN Comment on above: Performed By: #### C BC, MG, GFR, ADIFF, BMP, ANEU #### [address] [address] Monocyte, Absolute 0.7 10 3/mcL Normal 0.1-1.4 [facility] MAIN Comment on above: Performed By: #### C BC, MG, GFR, ADIFF, BMP, ANEU #### [address] [address] Monocytes/100 WBC (Bld) 10.7 % Normal 2.0-13.0 [facility] MAIN Comment on above: Performed By: #### C BC, MG, GFR, ADIFF, BMP, ANEU #### [address] [address] Neutrophils/100 WBC (Bld) 67.5 % Normal 50.0-75.0 [facility] MAIN Comment on above: Performed By: #### C BC, MG, GFR, ADIFF, BMP, ANEU #### [address] [address] Basophil, Absolute 0.0 10 3/mcL Normal 0.0-0.3 [facility] MAIN Comment on above: Performed By: #### C BC, MG, GFR, ADIFF, BMP, ANEU #### [address] [address] Basophils/100 WBC (Bld) 0.7 % Normal 0.0-2.5 [facility] MAIN Comment on above: Performed By: #### C BC, MG, GFR, ADIFF, BMP, ANEU #### [address] [address] Eosinophil, Absolute 0.1 10 3/mcL Normal 0.0-0.7 [facility] Comment on above: Performed By: #### C BC, MG, GFR, ADIFF, BMP, ANEU #### [address] [address] Eosinophils/100 WBC (Bld) 0.8 % Normal 0.0-6.0 [facility] Comment on above: Performed By: #### C BC, MG, GFR, ADIFF, BMP, ANEU #### [address] [address] Lymphocyte, Absolute 1.1 10 3/mcL Normal 0.9-4.3 [facility] Comment on above: Performed By: #### C BC, MG, GFR, ADIFF, BMP, ANEU #### [address] [address] Lymphocytes/100 WBC (Bld) 17.2 % Low 20.0-40.0 [facility] Comment on above: Performed By: #### C BC, MG, GFR, ADIFF, BMP, ANEU #### [address] [address] Monocyte, Absolute 0.6 10 3/mcL Normal 0.1-1.4 [facility] Comment on above: Performed By: #### C BC, MG, GFR, ADIFF, BMP, ANEU #### [address] [address] Monocytes/100 WBC (Bld) 8.7 % Normal 2.0-13.0 [facility] Comment on above: Performed By: #### C BC, MG, GFR, ADIFF, BMP, ANEU #### Sara [place] [id number] [place] [address] Neutrophils/100 WBC (Bld) 72.6 % Normal 50.0-75.0 [facility] MAIN Comment on above: Performed By: #### C BC, MG, GFR, ADIFF, BMP, ANEU #### [address] [address] .GFRon 10-16-2024 Estimated Glomerular Filtration Rate 110 ml/min/1.73sqm [facility] MAIN Comment on above: Result Comment: [...] eGFR results. Performed By: #### A DIFF, ANEU, BMP, CBC, GFR #### [address] [address] Estimated Glomerular Filtration Rate 111 ml/min/1.73sqm [facility] MAIN Comment on above: Result Comment: [...] calculate the eGFR results. Performed By: #### C BC, MG, GFR, ADIFF, BMP, ANEU #### [place] [id number] .MDWon 10-16-2024 Monocyte Distribution Width 19.45 Normal 0.00-20.00 [facility] MAIN Comment on above: Result Comment: For ED adult patients suspected of sepsis, MDW<=20.0 does not rule out sepsis or risk of sepsis Performed By: #### C BC, MG, GFR, ADIFF, BMP, ANEU #### [place] [address] Monocyte Distribution Width 17.52 Normal 0.00-20.00 [facility] MAIN Comment on above: Result Comment: For ED adult patients suspected of sepsis, MDW<=20.0 does not rule out sepsis or risk of sepsis Performed By: #### C BC, MG, GFR, ADIFF, BMP, ANEU #### [place] [address] .NEUABSon 10-16-2024 Neutrophil, Absolute 4.7 10 3/mcL Normal 2.3-8.1 [facility] MAIN Comment on above: Performed By: #### C BC, MG, GFR, ADIFF, BMP, ANEU #### [place] [address] Neutrophil, Absolute 4.7 10 3/mcL Normal 2.3-8.1 [facility] MAIN Comment on above: Performed By: #### C BC, MG, GFR, ADIFF, BMP, ANEU #### [place] [address] ABO/Rh (Gel)on 10-16-2024 ABO/Rh Interp Positive Invalid Interpretation Code [facility] MAIN Comment on above: Performed By: #### A DIFF, ANEU, BMP, CBC, GFR #### [place] [address] ABS (Gel)on 10-16-2024 ABSC Interp (Gel) Negative Normal [facility] MAIN Comment on above: Performed By: #### A DIFF, ANEU, BMP, CBC, GFR #### [facility] [address] [place] [address] Stefanie 10-16-2024 Ethanol Level <10.0 Normal [facility] MAIN Comment on above: Performed By: #### C BC, MG, GFR, ADIFF, BMP, ANEU #### [facility] [address] [place] [address] ANKLE COMPLETE RTon 10-17-19 25 ANKLE COMPLETE RT [address] [address] Patient: CARLOS ALBERTO KELLEY Phone#: : 1970 Age: 54 Gender: M Pt. Type: ER Account: [id number] Location: [facility] Ordering: JAKE MAXWELL Exam Date: 10/16/2024/13:23 Family Phys: Charge Code: 735375 Physician: [place] Order #: [id number] Dose#: PROCEDURE: X-RAY ANKLE COMPLETE RT MIN [...] Bagley MD on 10/16/2024 at 14:[address] [facility] BUN/Creatinine Ratio 15.9 ratio Normal 10.0-22.0 [facility] MAIN Comment on above: Performed By: #### C BC, MG, GFR, ADIFF, BMP, ANEU #### [address] [address] Calcium [Mass/Vol] 9.4 mg/dL Normal 8.7-10.4 [facility] MAIN Comment on above: Performed By: #### C BC, MG, GFR, ADIFF, BMP, ANEU #### [address] [address] Chloride [Moles/Vol] 103 mmol/L Normal 98-110 [facility] MAIN Comment on above: Performed By: #### C BC, MG, GFR, ADIFF, BMP, ANEU #### [address] [address] CO2 [Moles/Vol] 32 mmol/L Normal 22-32 [facility] MAIN Comment on above: Performed By: #### C BC, MG, GFR, ADIFF, BMP, ANEU #### [address] [address] Creatinine [Mass/Vol] 0.69 mg/dL Normal 0.60-1.40 [facility] MAIN Comment on above: Result Comment: Test ing performed on Musiwave analyzer using enzymatic creatinine methodology. Performed By: #### C BC, MG, GFR, ADIFF, BMP, ANEU #### [address] [address] Electrolyte Balance 5.0 mEq/L Normal 4.0-15.0 [facility] MAIN Comment on above: Performed By: #### C BC, MG, GFR, ADIFF, BMP, ANEU #### [address] [address] Glucose [Mass/Vol] 94 mg/dL Normal 70-110 [facility] MAIN Comment on above: Performed By: #### C BC, MG, GFR, ADIFF, BMP, ANEU #### [address] [address] Potassium [Moles/Vol] 3.6 mmol/L Normal 3.5-5.0 [facility] MAIN Comment on above: Performed By: #### C BC, MG, GFR, ADIFF, BMP, ANEU #### [place] [address] Sodium [Moles/Vol] 140 mmol/L Normal 136-145 [facility] MAIN Comment on above: Performed By: #### C BC, MG, GFR, ADIFF, BMP, ANEU #### [place] [address] Urea nitrogen [Mass/Vol] 11.0 mg/dL Normal 8.0-22.0 [facility] MAIN Comment on above: Performed By: #### C BC, MG, GFR, ADIFF, BMP, ANEU #### [place] [address] CBCon 10-16-2024 Erythrocyte distribution width (RBC) [Ratio] 16.5 % High 11.5-15.5 [facility] MAIN Comment on above: Performed By: #### C BC, MG, GFR, ADIFF, BMP, ANEU #### [place] [address] Hematocrit (Bld) [Volume fraction] 45.2 % Normal 40.0-52.0 [facility] MAIN Comment on above: Performed By: #### C BC, MG, GFR, ADIFF, BMP, ANEU #### [place] [address] Hgb 14.8 G/dL Normal 13.0-17.5 [facility] MAIN Comment on above: Performed By: #### C BC, MG, GFR, ADIFF, BMP, ANEU #### [place] [address] MCH (RBC) [Entitic mass] 28.8 pg Normal 27.0-33.0 [facility] MAIN Comment on above: Performed By: #### C BC, MG, GFR, ADIFF, BMP, ANEU #### [place] [address] MCHC 32.8 G/dL Normal 32.0-36.0 [facility] MAIN Comment on above: Performed By: #### C BC, MG, GFR, ADIFF, BMP, ANEU #### [place] [id number] MCV (RBC) [Entitic vol] 87.8 fL Normal 81.0-100.0 [facility] MAIN Comment on above: Performed By: #### C BC, MG, GFR, ADIFF, BMP, ANEU #### [place] [address] Platelet 172 10 3/mcL Normal 150-450 [facility] MAIN Comment on above: Performed By: #### C BC, MG, GFR, ADIFF, BMP, ANEU #### [place] [address] Platelet mean volume (Bld) [Entitic vol] 7.9 fL Normal 6.4-10.5 [facility] MAIN Comment on above: Performed By: #### C BC, MG, GFR, ADIFF, BMP, ANEU #### [place] [address] RBC 5.14 10 6/mcL Normal 4.50-6.00 [facility] MAIN Comment on above: Performed By: #### C BC, MG, GFR, ADIFF, BMP, ANEU #### [place] [address] WBC 6.9 10 3/mcL Normal 4.5-10.8 [facility] MAIN Comment on above: Performed By: #### C BC, MG, GFR, ADIFF, BMP, ANEU #### [place] [address] Erythrocyte distribution width (RBC) [Ratio] 17.1 % High 11.5-15.5 [facility] MAIN Comment on above: Performed By: #### C BC, MG, GFR, ADIFF, BMP, ANEU #### [place] [address] Hematocrit (Bld) [Volume fraction] 43.2 % Normal 40.0-52.0 [facility] MAIN Comment on above: Performed By: #### C BC, MG, GFR, ADIFF, BMP, ANEU #### [place] [address] Hgb 14.3 G/dL Normal 13.0-17.5 [facility] MAIN Comment on above: Performed By: #### C BC, MG, GFR, ADIFF, BMP, ANEU #### [place] [address] MCH (RBC) [Entitic mass] 28.9 pg Normal 27.0-33.0 [facility] MAIN Comment on above: Performed By: #### C BC, MG, GFR, ADIFF, BMP, ANEU #### [place] [address] MCHC 33.0 G/dL Normal 32.0-36.0 [facility] MAIN Comment on above: Performed By: #### C BC, MG, GFR, ADIFF, BMP, ANEU #### [place] [address] MCV (RBC) [Entitic vol] 87.4 fL Normal 81.0-100.0 [facility] MAIN Comment on above: Performed By: #### C BC, MG, GFR, ADIFF, BMP, ANEU #### [place] [address] Platelet 152 10 3/mcL Normal 150-450 [facility] MAIN Comment on above: Performed By: #### C BC, MG, GFR, ADIFF, BMP, ANEU #### [place] [address] Platelet mean volume (Bld) [Entitic vol] 7.7 fL Normal 6.4-10.5 [facility] MAIN Comment on above: Performed By: #### C BC, MG, GFR, ADIFF, BMP, ANEU #### [place] [address] RBC 4.94 10 6/mcL Normal 4.50-6.00 [facility] MAIN Comment on above: Performed By: #### C BC, MG, GFR, ADIFF, BMP, ANEU #### [place] [address] WBC 6.5 10 3/mcL Normal 4.5-10.8 [facility] MAIN Comment on above: Performed By: #### C BC, MG, GFR, ADIFF, BMP, ANEU #### [place] [address] CBC + DIFFon 10-16-2024 Baso # 0.01 x10EE3/UL Normal 0.00 - 0.10 [facility] Comment on above: Performed By: #### 2 65098 #### [facility],[address] [place] [address] Basophils/100 WBC (Bld) 0.2 % Normal 0.0 - 2.0 [facility] Comment on above: Performed By: #### 2 38395 #### [facility],[address] [place] [address] CBC + DIFF Normal [facility] Comment on above: Result Comment: CBC- COMPLETE BLOOD COUNT Performed By: #### 2 96460 #### [facility],[address] [place] [address] EO # 0.04 x10EE3/UL Normal 0.00 - 0.50 [facility] Comment on above: Performed By: #### 2 81547 #### [facility],[address] [place] [address] Eosinophils/100 WBC (Bld) 0.7 % Normal 0.0 - 7.0 [facility] Comment on above: Performed By: #### 2 53164 #### [facility],[address] [place], [place] [address] Erythrocyte distribution width (RBC) [Ratio] 15.2 % Normal 12.0 - 15.6 [facility] Comment on above: Performed By: #### 2 72722 #### [facility],[address] [place] [address] Hematocrit (Bld) [Volume fraction] 44.1 % Normal 40.0 - 52.0 [facility] Comment on above: Performed By: #### 2 98245 #### [facility],[address] [place] [address] Hemoglobin (Bld) [Mass/Vol] 15.4 g/dL Normal 13.0 - 17.5 [facility] Comment on above: Performed By: #### 2 41577 #### [facility],[address] [place] [address] Lymph # 0.96 x10EE3/UL Normal 0.80 - 2.80 [facility] Comment on above: Performed By: #### 2 67900 #### [facility],[address] [place] [address] Lymphocytes/100 WBC (Bld) 17.1 % Low 20.0 - 45.0 [facility] Comment on above: Performed By: #### 2 33520 #### [facility],[address] [place] [address] MANUAL DIFF N/A Normal [facility] Comment on above: Performed By: #### 2 66900 #### [facility],[address] [place], [place] [address] MCH (RBC) [Entitic mass] 31 pg Normal 27 - 33 [facility] Comment on above: Performed By: #### 2 11526 #### [facility],[address] [place] [address] MCHC 35 X10 3 Normal 32 - 36 [facility] Comment on above: Performed By: #### 2 05856 #### [facility],[address] [place] [address] MCV (RBC) [Entitic vol] 88 fL Normal 81 - 98 [facility] Comment on above: Performed By: #### 2 94804 #### [facility],[address] [place] [address] Glasscock # 0.47 x10EE3/UL Normal 0.20 - 1.00 [facility] Comment on above: Performed By: #### 2 39733 #### [facility],[address] [place] [address] MONOS % 8.4 % Normal 0.0 - 10.0 [facility] Comment on above: Performed By: #### 2 35670 #### [facility],[address] [place] [address] Morphology Rocky (Bld) [Interp] N/A Normal [facility] Comment on above: Performed By: #### 2 91661 #### [facility],[address] [place] [address] Neut # 4.12 x10EE3/UL Normal 1.50 - 7.10 [facility] Comment on above: Performed By: #### 2 53407 #### [facility],[address] [place] [address] Neutrophils/100 WBC (Bld) 73.6 % Normal 46.0 - 76.0 [facility] Comment on above: Performed By: #### 2 08604 #### [facility],[address] [place] [address]68 PLATELET 148 x10EE3/UL Low 150 - 450 [facility] Comment on above: Performed By: #### 2 68944 #### [facility],[address] [place] [address]96 Platelet mean volume (Bld) [Entitic vol] 8.1 fL Normal 6.4 - 10.5 [facility] Comment on above: Result Comment: AUTO MATED DIFFERENTIAL Performed By: #### 2 12898 #### [facility],[address] [place] [address] RBC 5.02 x 10EE6/UL Normal 4.50 - 6.00 [facility] Comment on above: Performed By: #### 2 38153 #### [facility],[address] [place] [address] WBC 5.6 x 10EE3/UL Normal 4.5 - 10.8 [facility] Comment on above: Performed By: #### 2 12285 #### [facility],[address] [place] [address] CMPon 10-16-2024 Albumin Level 3.6 G/dL Normal 3.2-4.8 [facility] MAIN Comment on above: Performed By: #### A DIFF, ANEU, BMP, CBC, GFR #### [address] [address] Albumin/Globulin [Mass ratio] 1.0 {ratio} Normal 0.9-1.6 [facility]IN Comment on above: Performed By: #### A DIFF, ANEU, BMP, CBC, GFR #### [address] [address] ALP [Catalytic activity/Vol] 70 U/L Normal 38-126 [facility] MAIN Comment on above: Performed By: #### A DIFF, ANEU, BMP, CBC, GFR #### [address] [address] ALT [Catalytic activity/Vol] 12 U/L Normal 12-55 [facility] Comment on above: Performed By: #### A DIFF, ANEU, BMP, CBC, GFR #### [address] [address] AST [Catalytic activity/Vol] 17 U/L Normal 8-34 [facility] Comment on above: Performed By: #### A DIFF, ANEU, BMP, CBC, GFR #### [address] [address] Bili Total 0.60 mg/dL Normal 0.20-1.20 [facility]IN Comment on above: Result Comment: Use of this assay is not recommended for patients undergoing treatment with eltrombopag due to the potential for falsely elevated results. Performed By: #### A DIFF, ANEU, BMP, CBC, GFR #### [address] [address] BUN/Creatinine Ratio 14.1 ratio Normal 10.0-22.0 [facility] MAIN Comment on above: Performed By: #### A DIFF, ANEU, BMP, CBC, GFR #### [address] [address] Calcium [Mass/Vol] 9.0 mg/dL Normal 8.7-10.4 [facility] MAIN Comment on above: Performed By: #### A DIFF, ANEU, BMP, CBC, GFR #### [address] [address] Chloride [Moles/Vol] 102 mmol/L Normal 98-110 [facility] MAIN Comment on above: Performed By: #### A DIFF, ANEU, BMP, CBC, GFR #### [address] [address] CO2 [Moles/Vol] 33 mmol/L High 22-32 [facility]IN Comment on above: Performed By: #### A DIFF, ANEU, BMP, CBC, GFR #### [place] [id number] Creatinine [Mass/Vol] 0.71 mg/dL Normal 0.60-1.40 [facility] MAIN Comment on above: Result Comment: Test ing performed on Musiwave analyzer using enzymatic creatinine methodology. Performed By: #### A DIFF, ANEU, BMP, CBC, GFR #### [place] [id number] Electrolyte Balance 4.0 mEq/L Normal 4.0-15.0 [facility] MAIN Comment on above: Performed By: #### A DIFF, ANEU, BMP, CBC, GFR #### [address] [address] Globulin 3.5 G/dL Normal 2.5-4.2 [facility]IN Comment on above: Performed By: #### A DIFF, ANEU, BMP, CBC, GFR #### [address] [address] Glucose [Mass/Vol] 109 mg/dL Normal 70-110 [facility] MAIN Comment on above: Performed By: #### A DIFF, ANEU, BMP, CBC, GFR #### [address] [address] Potassium [Moles/Vol] 3.7 mmol/L Normal 3.5-5.0 [facility] MAIN Comment on above: Performed By: #### A DIFF, ANEU, BMP, CBC, GFR #### [address] [address] Sodium [Moles/Vol] 139 mmol/L Normal 136-145 [facility] MAIN Comment on above: Performed By: #### A DIFF, ANEU, BMP, CBC, GFR #### [facility] [address] [place] [address] Total Protein 7.1 G/dL Normal 5.7-8.2 [facility] MAIN Comment on above: Performed By: #### A DIFF, ANEU, BMP, CBC, GFR #### [facility] [address] [place] [address] Urea nitrogen [Mass/Vol] 10.0 mg/dL Normal 8.0-22.0 [facility] Comment on above: Performed By: #### A DIFF, ANEU, BMP, CBC, GFR #### [address] [address] CMP with eGFRon 10-16-2024 AGE 54 years Normal [facility] Comment on above: Performed By: #### 2 17333 ####[facility],[address] [place] [address] Albumin [Mass/Vol] 3.4 g/dL Normal 3.4 - 5.0 [facility] Comment on above: Performed By: #### 2 51028 ####[facility],[address] [place] [address] Albumin/Globulin [Mass ratio] 0.9 {ratio} Normal 0.9 - 1.6 [facility] Comment on above: Performed By: #### 2 11533 ####[facility],[address] [place] [address]251 ALK PHOS 76 U/L Normal 46 - 116 [facility] Comment on above: Performed By: #### 2 12782 ####[facility],[address] [place] [address] 25699 ALT [Catalytic activity/Vol] 17 U/L Normal 16 - 63 [facility] Comment on above: Performed By: #### 2 58266 ####[facility],[address] [place] [address] 61840 Anion gap [Moles/Vol] 11 mmol/L Normal 10 - 20 [facility] Comment on above: Performed By: #### 2 23311 ####[facility],[address] [place] [address] 97896 AST [Catalytic activity/Vol] 17 U/L Normal 15 - 37 [facility] Comment on above: Performed By: #### 2 16302 ####[facility],[address] [place] [address] 54974 B/C RATIO 13 ratio Normal 0 - 30 [facility] Comment on above: Performed By: #### 2 95958 ####[facility],[address] [place] [address] 07476 Bilirubin [Mass/Vol] 0.5 mg/dL Normal 0.2 - 1.0 [facility] Comment on above: Performed By: #### 2 37485 ####[facility],[address] [place] [address]59 Calcium [Mass/Vol] 8.9 mg/dL Normal 8.5 - 10.1 [facility] Comment on above: Performed By: #### 2 89101 ####[facility],[address] [place] [address] 19642 Chloride [Moles/Vol] 101 mmol/L Normal 98 - 107 [facility] Comment on above: Performed By: #### 2 47504 ####[facility],[address] [place] [address]324 CMP with eGFR Normal [facility] Comment on above: Result Comment: COMP REHENSIVE METABOLIC PANEL Performed By: #### 2 78515 ####[facility],[address] [place] [address] 44663 CO2 [Moles/Vol] 30.7 mmol/L Normal 21.0 - 32.0 [facility] Comment on above: Performed By: #### 2 84116 ####[facility],[address] [place] [address]67 Creatinine [Mass/Vol] 0.96 mg/dL Normal 0.70 - 1.30 [facility] Comment on above: Performed By: #### 2 37136 ####[facility],[address] [place] [address]6781 GFR/1.73 sq M.predicted among non-blacks MDRD (S/P/Bld) [Vol rate/Area] mL/min/{1.73_m2} Normal 60 - 999 [facility] Comment on above: Performed By: #### 2 21879 ####[facility],[address] [place] [address] 35744 Result Comment: ACCO RDING TO THE NATIONAL KIDNEY DISEASE EDUCATION PROGRAM(NKDE), A NORMAL eGFR IS A VALUE GREATER THAN OR EQUAL TO 60 ML/MIN/1.73 SQ METERS. CHRONIC KIDNEY DISEASE: <60mL/MIN/1.73 SQ METERS KIDNEY FAILURE: <15mL/MIN/1.73 SQ METERS THIS TEST SHOULD ONLY BE USED FOR PATIENTS 18 YEARS OF AGE AND OLDER. Globulin (S) [Mass/Vol] 3.7 g/dL Normal 1.5 - 3.8 [facility] Comment on above: Performed By: #### 2 62259 ####[facility],[address] [place] [address]215 Glucose [Mass/Vol] 94 mg/dL Normal 74 - 106 [facility] Comment on above: Performed By: #### 2 50289 ####[facility],[address] [place] [address] 86636 Potassium [Moles/Vol] 3.6 mmol/L Normal 3.5 - 5.1 [facility] Comment on above: Performed By: #### 2 06410 ####[facility],[address] [place] [address] 95138 Protein [Mass/Vol] 7.1 g/dL Normal 6.4 - 8.2 [facility] Comment on above: Performed By: #### 2 10604 ####[facility],[address] [place] [address] 69323 Sodium [Moles/Vol] 139 mmol/L Normal 136 - 145 [facility] Comment on above: Performed By: #### 2 82437 ####[facility],[address] [place] [address] 69890 Urea nitrogen [Mass/Vol] 12 mg/dL Normal 7 - 18 [facility] Comment on above: Performed By: #### 2 09046 ####[facility],[address] [place] [address] 54119 ED MED ADMINISTRATION DETAIL on 10-16-2024 ED MED ADMINISTRATION DETAIL Bag Machine Tender Medication Administration Record [address] [address] [id number] 10/16/2024 Patient: CARLOS ALBERTO KELLEY Sex: Male : 1970 Age: 54y MEASUREMENTS: Wt: 140.2 kg, Ht/Wilson: 69.0 in, BMI: 45.63 ALLERGIES: Hehechy-GHL-EkB Reductase Inhibitors Medication Ordered Medication Administration Date/Time [...] Destiney Chu R.N. 1 of 1 Normal [facility] ED NURSES CLINICAL NOTEon ED NURSES CLINICAL NOTE Nurse Narrative Nurse Clinical Narrative [address] [address] [id number] 10/16/2024 12:34:00 Patient: CARLOS ALBERTO KELLEY Sex: [...] had swelling, redness and trouble walking. Treatment ASSOCIATE PROFESSOR: Ice. SEPSIS SCREEN: NEGATIVE. SIRS criteria negative. No possible sources of infection. -- 12:47 10/16/24 EDT Silvina Maguire R.N. 12:47 10/16/24. BP: 171/95 MAP: 120. HR: 93. RR: 18. O2 saturation: 93% Temperature: 98.9 F. Pain level now 03/07. -- 12:47 10/16/24 EDT Silvina Maguire R.N. Measurements: 12:45 10/16/24 Wt: 140.2 kg, Ht/Wilson: 69.0 in, BMI: 45.63 -- 12:45 10/16/24 EKTAT Silvina Maguire R.N. 1 of 5 Nurse Narrative Medications: omeprazole 40 mg capsule,delayed release -- 12:51 10/16/24 NAY Maguire R.N. dofetilide 250 mcg capsule -- 12:51 10/16/24 EKTAT Silvina Maguire R.N. albuterol sulfate 2.5 mg/3 mL (0.083 %) solution for nebulization -- 12:51 10/16/24 EKTAT Silvina Maguire R.N. pravastatin 40 mg tablet -- 12:51 10/16/24 EKTAT Silvina Maguire R.N. metoprolol succinate ER 100 mg tablet,extended release 24 hr -- 12:51 10/16/24 NAY Maguire R.N. spironolactone 25 mg tablet -- [...] 80 mcg-4.5 mcg/actuation aerosol inhaler -- 12:10/16/24 T Silvina Maguire R.N. True Metrix Glucose Test Strip -- 12:10/16/24 T Silvina Maguire R.N. Xarelto 20 mg tablet -- 12:10/16/24 T Silvina Maguire R.N. potassium chloride ER 20 mEq tablet,extended release -- 12:10/16/24 T Silvina Maguire R.N. TRUEplus Lancets 28 gauge -- 12:51 10/16/24 T Silvina Maguire R.N. Trulicity 1.5 mg/0.5 mL subcutaneous pen injector -- 12:51 10/16/24 EKTAT Silvina Maguire R.N. Allergies: Yzesoxu-QSX-KrH Reductase Inhibitors -- 12:40 10/16/24 EKTAT Silvina [...] disease exposure. ABUSE ASSESSMENT: The patient answered "yes" to the question(s) "Do you feel safe in your home?" and "no" to the question(s) "Are you afraid to go home?". SELF HARM ASSESSMENT: Self harm assessment was performed. The patient answered "no" to the question(s) "Have you recently felt down, depressed, or hopeless?" and "Do you have thoughts of harming or killing yourself?". FALL RISK ASSESSMENT: Fall risk assessment completed. [...] 10/16/24. E (more content not included)... Normal [facility] ED ORDER SHEET (CPOE ONLY)on 10-16-2024 ED ORDER SHEET (CPOE ONLY) Order Sheet Order Sheet [place] [address] [place] [address] [phone] 10/16/2024 Patient: CARLOS ALBERTO KELLEY Sex: Male : 1970 Age: 54y MEASUREMENTS: Wt: 140.2 kg, Ht/Wilson: 69.0 in, BMI: 45.63 ALLERGIES: Hlerfug-PYD-ZrL Reductase Inhibitors MEDICATION/IV/DRIP/FL UID ORDERS Order Description Priority Entered Acknowledged Completed HYDROmorphone (Dilaudid) 12:56 10/16/2024 12:58 13:14 IVP0.5 mg (NOW x1, HIGH Jake Maxwell M.D. 10/16/2024 10/16/2024 ALERT MEDICATION) Destiney Blackman R.N. [place] LAB ORDERS Order Description Priority Entered Acknowledged Collected Completed PT with INR Stat Stat 12:51 10/16/2024 12:58 10/16/2024 14:19 10/16/2024 Reymundo Carvajal Debra Schrock, R.N. [place] CBC w Diff Stat Stat 14:00 10/16/2024 14:18 10/16/2024 14:19 10/16/2024 Reymundo Carvajal Debra Schrock, R.N. [place] CMP Stat Stat 14:00 10/16/2024 14:18 10/16/2024 [...] Maxwell M.D. 10/16/2024 10/16/2024 Destiney Blackman R.N. RRohan Reason for Study: Trauma/Injury Tib/Fib R 2V Stat Stat 12:51 10/16/2024 12:58 14:19 Jake Maxwell M.D. 10/16/2024 10/16/2024 Destiney Blackman R.N. RRohan Reason for Study: Trauma/Injury Ankle R Complete [...] (10/16/2024 15:18 EDT)] 3 of 3 Normal [facility] ED PHYSICIAN CLINICAL REPORT on 10-16-2024 ED PHYSICIAN CLINICAL REPORT Narrative Physician Clinical [address] [address] [phone] 10/16/2024 12:34:00 Patient: CARLOS ALBERTO KELLEY Sex: Male : 1970 Age: 54y Disposition: Transfer to [facility] Decision Time: 14:27 10/16/2024 Measurements Wt: 140.2 [...] pen injector Xarelto 20 mg tablet Allergies: Uxmjrnz-KYZ-SgT Reductase Inhibitors SOCIAL HISTORY Does not use [...] twisted his right ankle her and it "snapped and went sideways". He was able to straighten it up [...] 148 x10/UL (more content not included)... Normal [facility] ED SUPER BILLon 10-16-2024 ED SUPER BILL [address] [address] [phone] 10/16/2024 Patient: CARLOS ALBERTO KELLEY Sex: Male : 1970 Age: 54y Facility Professional Category Item Description Code Code Quantity Fee Total Nurse/E/M EMERGENCY 448551 1 $0.00 $0.00 DEPT VISIT HIGH SEVERITYFUNCJ (80648-58) Nurse/IV/IM/Infusions IVP initial (83146) [id number] 1 $0.00 $0.00 Grand $0.00 Total Providers Jake Maxwell M.D. Jake Maxwell M.D. Chief Complaint Injury to right foot and right ankle. Principal Diagnosis Closed displaced, severely angulated right bimalleolar fracture. 1 of 2 [facility] ICD-10 Codes S82.841A: Displaced bimalleolar fracture of right lower leg, initial encounter for closed fracture 2 of 2 Normal [facility] ED VISIT SUMMARYon ED VISIT SUMMARY Visit Overview Visit Overview [address] [address] [id number] 10/16/2024 Patient: CARLOS ALBERTO KELLEY Sex: Male : 1970 Age: 54y 10/16/2024 07:42 PM EDT ED Arrival:12:34 10/16/2024 EDT Status: Recent Travel:no Language:eng Adv Directive:No Isolation Status: Ethnicity:N Fall Risk:risk Infectious Disease Exposure:no Measurements:5'9" / 175.3 Self-Harm Status:risk Sepsis Screen:negative cm 309.0 lb / 140.2 kg Chief Complaint:RIGHT LOWER EXTREMITY PAIN, RIGHT LOWER EXTREMITY REDNESS, and RIGHT LOWER EXTREMITY SWELLING ALLERGIES Vuulbuv-FVT-SwU Reductase Inhibitors HOME MEDICATIONS albuterol sulfate 2.5 [...] RIGHT BIMALLEOLAR FRACTURE 4 of 4 Normal [facility] ED VITALS FLOW SHEETon 10-16 ED VITALS FLOW SHEET Vitals Vital Sign Flow Sheet [address] [place] [address] [phone] 10/16/2024 Patient: CARLOS ALBERTO KELLEY Sex: Male [...] 98.9 F 10 2 of 2 Normal [facility] FOOT COMPLETE RTon FOOT COMPLETE RT [place] [address] Patient: CARLOS ALBERTO KELLEY Phone#: : 1970 Age: 54 Gender: M Pt. Type: ER Account: [id number] Location: [facility] Ordering: JAKE MAXWELL Exam Date: 10/16/2024/13:00 Family Phys: Charge Code: [id number] Physician: [place] Order #: [id number] Dose#: PROCEDURE: X-RAY FOOT RT COMPLETE MIN [...] Bagley MD on 10/16/2024 at 14:23 Normal [facility] LABORATORYOrdered By: SYSTEM SYSTEM on 10-16-2024 [...] 12 U/L Normal 12 - 55 U/L ADM SS AST [Catalytic activity/Vol] 17 U/L Normal 8 - 34 U/L ADM SS Bilirubin [Mass/Vol] 0.60 mg/dL Normal 0.20 - 1.20 mg/dL ADM SS Comment on above: Interpretive Data: U se of this assay is not recommended for patients undergoing treatment with eltrombopag due to the potential for falsely elevated results. Globulin 3.5 G/dL Normal 2.5 - 4.2 G/dL ADM SS Protein [Mass/Vol] 7.1 G/dL Normal 5.7 - 8.2 G/dL ADM SS Ethanol [Mass/Vol] mg/dL Invalid Interpretation [...] [Moles/Vol] 1.1 mmol/L Normal 0.4 - 2.0 [facility] Comment on above: Performed By: #### 2 [id number] #### [facility],[address] [place] [address] NT-proBNPon 10-16-2024 Natriuretic peptide B (Bld) [Mass/Vol] 291 pg/mL High 0 - 125 [facility] Comment on above: Performed By: #### 2 09531 #### [facility],[address] [place] [address] PROTHROMBIN TIME AND INRon 0 10-16-2024 INR Coag (PPP) [Relative time] 1.4 {INR} High 0.8 - 1.2 [facility] Comment on above: Result Comment: T [...] MECHANICAL HEART VALVES Performed By: #### 2 [id number] ####[facility],[address] [place], [place] [id number] PROTHROMBIN TIME AND INR Normal [facility] Comment on above: Result Comment: PROT HROMBIN TIME AND INR Performed By: #### 2 [id number] ####[facility],[address] [place] [address] PT-COUMADIN 15.9 sec High 9.3 - 14.1 [facility] Comment on above: Performed By: #### 2 [id number] ####[facility],[address] [place], [place] [id number] TIBIA-FIBULA RTon 10-16-2024 TIBIA-FIBULA RT [place] [address] Patient: CARLOS ALBERTO KELLEY Phone#: : 1970 Age: 54 Gender: M Pt. Type: ER Account: [id number] Location: [facility] Ordering: JAKE MAXWELL Exam Date: 10/16/2024/13:23 Family Phys: Charge Code: 195210 Physician: [place] Order #: [id number] Dose#: PROCEDURE: X-RAY TIB FIB RT 2 [...] Corrine Bagley MD on 10/16/2024 at 14:12 [facility] XR ANKLE MINIMUM 3 VIEWS [...] PM Ordering Provider: [facility] MAIN XR ANKLE MINIMUM 3 VIEWS RIG on 10-16-2024 XR ANKLE MINIMUM 3 VIEWS RIGHT [...] 10/16/2024 9:20:54 PM Ordering Provider: RIC ARELLANO [facility] MAIN XR ANKLE MINIMUM 3 VIEWS [...] 10/16/2024 7:53:07 PM Ordering Provider: EM GARCIA [facility] MAIN XR ANKLE MINIMUM 3 VIEWS [...] 10/16/2024 6:28:12 PM Ordering Provider: EM Kate [facility] MAIN .Auto Diffon 10-04-2024 Basophil, Absolute 0.0 10 3/mcL Normal 0.0-0.3 [facility] MAIN Comment on above: Performed By: #### A DIFF, ANEU, BMP, CBC, GFR #### [address] [address] Basophils/100 WBC (Bld) 0.9 % Normal 0.0-2.5 [facility] MAIN Comment on above: Performed By: #### A DIFF, ANEU, BMP, CBC, GFR #### [address] [address] Eosinophil, Absolute 0.1 10 3/mcL Normal 0.0-0.7 [facility] Comment on above: Performed By: #### A DIFF, ANEU, BMP, CBC, GFR #### [address] [address] Eosinophils/100 WBC (Bld) 1.9 % Normal 0.0-6.0 [facility] MAIN Comment on above: Performed By: #### A DIFF, ANEU, BMP, CBC, GFR #### [address] [address] Lymphocyte, Absolute 1.0 10 3/mcL Normal 0.9-4.3 [facility] Comment on above: Performed By: #### A DIFF, ANEU, BMP, CBC, GFR #### [address] [address] Lymphocytes/100 WBC (Bld) 24.9 % Normal 20.0-40.0 [facility] Comment on above: Performed By: #### A DIFF, ANEU, BMP, CBC, GFR #### [address] [place] [address] Monocyte, Absolute 0.3 10 3/mcL Normal 0.1-1.4 [facility] Comment on above: Performed By: #### A DIFF, ANEU, BMP, CBC, GFR #### [address] [address] Monocytes/100 WBC (Bld) 7.5 % Normal 2.0-13.0 [facility] Comment on above: Performed By: #### A DIFF, ANEU, BMP, CBC, GFR #### [address] [address] Neutrophils/100 WBC (Bld) 64.8 % Normal 50.0-75.0 [facility] Comment on above: Performed By: #### A DIFF, ANEU, BMP, CBC, GFR #### [address] [address] .GFRon 10-04-2024 Estimated Glomerular Filtration Rate 107 ml/min/1.73sqm Normal [facility] MAIN Comment on above: Result Comment: Stages [...] eGFR results. Performed By: #### A DIFF, ANEU, BMP, CBC, GFR #### [address] [address] .NEUABSon 10-04-2024 Neutrophil, Absolute 2.5 10 3/mcL Normal 2.3-8.1 [facility] Comment on above: Performed By: #### A DIFF, ANEU, BMP, CBC, GFR #### [address] [address] BMPon 10-04-2024 BUN/Creatinine Ratio 6.5 ratio Low 10.0-22.0 [facility] MA[facility] Comment on above: Performed By: #### A DIFF, ANEU, BMP, CBC, GFR #### [address] [address] Calcium [Mass/Vol] 8.5 mg/dL Low 8.7-10.4 [facility] MAIN Comment on above: Performed By: #### A DIFF, ANEU, BMP, CBC, GFR #### [address] [address] Chloride [Moles/Vol] 102 mmol/L Normal 98-110 [facility] Comment on above: Performed By: #### A DIFF, ANEU, BMP, CBC, GFR #### [address] [address] CO2 [Moles/Vol] 31 mmol/L Normal 22-32 [facility] MA[facility] Comment on above: Performed By: #### A DIFF, ANEU, BMP, CBC, GFR #### [address] [address] Creatinine [Mass/Vol] 0.77 mg/dL Normal 0.60-1.40 [facility] MAIN Comment on above: Result Comment: Test ing performed on Musiwave analyzer using enzymatic creatinine methodology. Performed By: #### A DIFF, ANEU, BMP, CBC, GFR #### [address] [address] Electrolyte Balance 6.0 mEq/L Normal 4.0-15.0 [facility] MAIN Comment on above: Performed By: #### A DIFF, ANEU, BMP, CBC, GFR #### [address] [address] Glucose [Mass/Vol] 108 mg/dL Normal 70-110 [facility] MAIN Comment on above: Performed By: #### A DIFF, ANEU, BMP, CBC, GFR #### [address] [address] Potassium [Moles/Vol] 3.5 mmol/L Normal 3.5-5.0 [facility] MA[facility] Comment on above: Performed By: #### A DIFF, ANEU, BMP, CBC, GFR #### [address] [address] Sodium [Moles/Vol] 139 mmol/L Normal 136-145 [facility] MA[facility] Comment on above: Performed By: #### A DIFF, ANEU, BMP, CBC, GFR #### [address] [address] Urea nitrogen [Mass/Vol] 5.0 mg/dL Low 8.0-22.0 [facility] Comment on above: Performed By: #### A DIFF, ANEU, BMP, CBC, GFR #### [address] [address] CBCon 10-04-2024 Erythrocyte distribution width (RBC) [Ratio] 17.1 % High 11.5-15.5 [facility] Comment on above: Performed By: #### A DIFF, ANEU, BMP, CBC, GFR #### [place] [address] Hematocrit (Bld) [Volume fraction] 42.5 % Normal 40.0-52.0 [facility] MAIN Comment on above: Performed By: #### A DIFF, ANEU, BMP, CBC, GFR #### [place] [id number] Hgb 13.8 G/dL Normal 13.0-17.5 [facility] MA[facility] Comment on above: Performed By: #### A DIFF, ANEU, BMP, CBC, GFR #### [place] [id number] MCH (RBC) [Entitic mass] 28.4 pg Normal 27.0-33.0 [facility] Comment on above: Performed By: #### A DIFF, ANEU, BMP, CBC, GFR #### [place] [id number] MCHC 32.6 G/dL Normal 32.0-36.0 [facility] MA[facility] Comment on above: Performed By: #### A DIFF, ANEU, BMP, CBC, GFR #### [place] [address] MCV (RBC) [Entitic vol] 87.2 fL Normal 81.0-100.0 [facility] MA[facility] Comment on above: Performed By: #### A DIFF, ANEU, BMP, CBC, GFR #### [address] [address] Platelet 120 10 3/mcL Low 150-450 [facility] MA[facility] Comment on above: Performed By: #### A DIFF, ANEU, BMP, CBC, GFR #### [place] [id number] [place] [address] Platelet mean volume (Bld) [Entitic vol] 7.4 fL Normal 6.4-10.5 [facility] MA[facility] Comment on above: Performed By: #### A DIFF, ANEU, BMP, CBC, GFR #### [place] [id number] RBC 4.87 10 6/mcL Normal 4.50-6.00 [facility] MA[facility] Comment on above: Performed By: #### A DIFF, ANEU, BMP, CBC, GFR #### [place] [id number] WBC 3.8 10 3/mcL Low 4.5-10.8 [facility] MA[facility] Comment on above: Performed By: #### A DIFF, ANEU, BMP, CBC, GFR #### [place] [address] LABORATORYOrdered By: Adenike Swain on 10-04-2024 Blood Glucose Testing Reason Routine (10/04/24 7:18 AM) [facility] Glucose [Mass/Vol] 100 mg/dL Normal 70 - 110 mg/dL [facility] LABORATORYOrdered By: SYSTEM SYSTEM on 10-04-2024 [...] 32 mEq/L AH ADM SS Creatinine [Mass/Vol] 0.77 mg/dL Normal 0.60 - 1.40 mg/dL ADM SS Comment on above: Interpretive Data: T esting performed on Musiwave analyzer using enzymatic creatinine methodology. Electrolyte Balance [...] 13.8 G/dL Normal 13.0 - 17.5 G/dL Workflow SS Lymphocytes (Bld) [#/Vol] 1.0 103/mcL Normal 0.9 - 4.3 10^3/mcL Workflow SS Lymphocytes/100 WBC (Bld) 24.9 % Normal 20.0 - 40.0 % Workflow SS Magnesium [Mass/Vol] 1.9 mg/dL Normal [...] 10-04-2024 Magnesium [Mass/Vol] 1.9 mg/dL Normal 1.6-2.4 [facility] Comment on above: Performed By: #### A DIFF, ANEU, BMP, CBC, GFR #### [address] [address] .Auto Diffon 10-03-2024 Basophil, Absolute 0.0 10 3/mcL Normal 0.0-0.3 [facility] MA[facility] Comment on above: Performed By: #### A DIFF, ANEU, BMP, CBC, GFR #### [address] [address] Basophils/100 WBC (Bld) 0.9 % Normal 0.0-2.5 [facility] MA[facility] Comment on above: Performed By: #### A DIFF, ANEU, BMP, CBC, GFR #### [address] [address] Eosinophil, Absolute 0.1 10 3/mcL Normal 0.0-0.7 [facility] MA[facility] Comment on above: Performed By: #### A DIFF, ANEU, BMP, CBC, GFR #### [address] [address] Eosinophils/100 WBC (Bld) 2.0 % Normal 0.0-6.0 [facility] MA[facility] Comment on above: Performed By: #### A DIFF, ANEU, BMP, CBC, GFR #### [address] [address] Lymphocyte, Absolute 0.9 10 3/mcL Normal 0.9-4.3 [facility] MA[facility] Comment on above: Performed By: #### A DIFF, ANEU, BMP, CBC, GFR #### [address] [address] Lymphocytes/100 WBC (Bld) 21.1 % Normal 20.0-40.0 [facility] MA[facility] Comment on above: Performed By: #### A DIFF, ANEU, BMP, CBC, GFR #### [address] [address] Monocyte, Absolute 0.3 10 3/mcL Normal 0.1-1.4 [facility] MA[facility] Comment on above: Performed By: #### A DIFF, ANEU, BMP, CBC, GFR #### [address] [address] Monocytes/100 WBC (Bld) 7.6 % Normal 2.0-13.0 [facility] MA[facility] Comment on above: Performed By: #### A DIFF, ANEU, BMP, CBC, GFR #### [address] [address] Neutrophils/100 WBC (Bld) 68.4 % Normal 50.0-75.0 [facility] Comment on above: Performed By: #### A DIFF, ANEU, BMP, CBC, GFR #### [address] [address] .GFRon 10-03-2024 Estimated Glomerular Filtration Rate 109 ml/min/1.73sqm Normal [facility] MAIN Comment on above: Result Comment: Stages [...] eGFR results. Performed By: #### A DIFF, ANEU, BMP, CBC, GFR #### [place] [id number] .NEUABSon 10-03-2024 Neutrophil, Absolute 2.8 10 3/mcL Normal 2.3-8.1 [facility] Comment on above: Performed By: #### A DIFF, ANEU, BMP, CBC, GFR #### [place] [address] A1Con 10-03-2024 Glucose [Mass/Vol] 114 mg/dL Normal [facility] MAIN Comment on above: Result Comment: Zahida mated Average Glucose calculated by equation ((28.7xA1C)-46.7) Estimated average glucose (eAG) is a calculated value from Hemoglobin A1C and is credit resolution representative of the average blood glucose level in the last 2-3 month period. Normal range: less than 114 mg/dL Performed By: #### C BC, MG, GFR, ADIFF, BMP, ANEU #### [address] [address] HbA1c (Bld) [Mass fraction] 5.6 % Normal 4.0-6.0 [facility] MA[facility] Comment on above: Performed By: #### C BC, MG, GFR, ADIFF, BMP, ANEU #### [address] [address] CBCon 10-03-2024 Erythrocyte distribution width (RBC) [Ratio] 16.6 % High 11.5-15.5 [facility] MAIN Comment on above: Performed By: #### A DIFF, ANEU, BMP, CBC, GFR #### [place] [address] Hematocrit (Bld) [Volume fraction] 41.1 % Normal 40.0-52.0 [facility] MA[facility] Comment on above: Performed By: #### A DIFF, ANEU, BMP, CBC, GFR #### [place] [address] Hgb 13.5 G/dL Normal 13.0-17.5 [facility] MA[facility] Comment on above: Performed By: #### A DIFF, ANEU, BMP, CBC, GFR #### [place] [address] MCH (RBC) [Entitic mass] 28.7 pg Normal 27.0-33.0 [facility] MA[facility] Comment on above: Performed By: #### A DIFF, ANEU, BMP, CBC, GFR #### [place] [address] MCHC 32.9 G/dL Normal 32.0-36.0 [facility] MA[facility] Comment on above: Performed By: #### A DIFF, ANEU, BMP, CBC, GFR #### [place] [address] MCV (RBC) [Entitic vol] 87.2 fL Normal 81.0-100.0 [facility] MA[facility] Comment on above: Performed By: #### A DIFF, ANEU, BMP, CBC, GFR #### [place] [address] Platelet 136 10 3/mcL Low 150-450 [facility] MAIN Comment on above: Performed By: #### A DIFF, ANEU, BMP, CBC, GFR #### [place] [address] Platelet mean volume (Bld) [Entitic vol] 7.6 fL Normal 6.4-10.5 [facility] MAIN Comment on above: Performed By: #### A DIFF, ANEU, BMP, CBC, GFR #### [place] [address] RBC 4.72 10 6/mcL Normal 4.50-6.00 [facility] MA[facility] Comment on above: Performed By: #### A DIFF, ANEU, BMP, CBC, GFR #### [place] [address] WBC 4.2 10 3/mcL Low 4.5-10.8 [facility] MA[facility] Comment on above: Performed By: #### A DIFF, ANEU, BMP, CBC, GFR #### [place] [address] CMPon 10-03-2024 Albumin Level 3.3 G/dL Normal 3.2-4.8 [facility] MA[facility] Comment on above: Performed By: #### A DIFF, ANEU, BMP, CBC, GFR #### [place] [address] Albumin/Globulin [Mass ratio] 1.0 {ratio} Normal 0.9-1.6 [facility] MA[facility] Comment on above: Performed By: #### A DIFF, ANEU, BMP, CBC, GFR #### [place] [address] ALP [Catalytic activity/Vol] 56 U/L Normal 38-126 [facility] MAIN Comment on above: Performed By: #### A DIFF, ANEU, BMP, CBC, GFR #### [place] [address] ALT [Catalytic activity/Vol] 10 U/L Low 12-55 [facility] MA[facility] Comment on above: Performed By: #### A DIFF, ANEU, BMP, CBC, GFR #### [place] [address] AST [Catalytic activity/Vol] 16 U/L Normal 8-34 [facility] MA[facility] Comment on above: Performed By: #### A DIFF, ANEU, BMP, CBC, GFR #### [place] [address] Bili Total 0.60 mg/dL Normal 0.20-1.20 [facility] MA[facility] Comment on above: Result Comment: Use of this assay is not recommended for patients undergoing treatment with eltrombopag due to the potential for falsely elevated results. Performed By: #### A DIFF, ANEU, BMP, CBC, GFR #### [address] [address] BUN/Creatinine Ratio 9.6 ratio Low 10.0-22.0 [facility] MA[facility] Comment on above: Performed By: #### A DIFF, ANEU, BMP, CBC, GFR #### [address] [address] Calcium [Mass/Vol] 8.4 mg/dL Low 8.7-10.4 [facility] MAIN Comment on above: Performed By: #### A DIFF, ANEU, BMP, CBC, GFR #### [address] [address] Chloride [Moles/Vol] 105 mmol/L Normal 98-110 [facility] Comment on above: Performed By: #### A DIFF, ANEU, BMP, CBC, GFR #### [address] [address] CO2 [Moles/Vol] 31 mmol/L Normal 22-32 [facility] Comment on above: Performed By: #### A DIFF, ANEU, BMP, CBC, GFR #### [address] [address] Creatinine [Mass/Vol] 0.73 mg/dL Normal 0.60-1.40 [facility] Comment on above: Result Comment: Test ing performed on Musiwave analyzer using enzymatic creatinine methodology. Performed By: #### A DIFF, ANEU, BMP, CBC, GFR #### [address] [address] Electrolyte Balance 1.0 mEq/L Low 4.0-15.0 [facility] Comment on above: Performed By: #### A DIFF, ANEU, BMP, CBC, GFR #### [address] [address] Globulin 3.2 G/dL Normal 2.5-4.2 [facility] Comment on above: Performed By: #### A DIFF, ANEU, BMP, CBC, GFR #### [address] [address] Glucose [Mass/Vol] 109 mg/dL Normal 70-110 [facility] Comment on above: Performed By: #### A DIFF, ANEU, BMP, CBC, GFR #### [address] [address] Potassium [Moles/Vol] 3.5 mmol/L Normal 3.5-5.0 [facility] Comment on above: Performed By: #### A DIFF, ANEU, BMP, CBC, GFR #### [address] [address] Sodium [Moles/Vol] 137 mmol/L Normal 136-145 [facility] Comment on above: Performed By: #### A DIFF, ANEU, BMP, CBC, GFR #### [address] [address] Total Protein 6.5 G/dL Normal 5.7-8.2 [facility] Comment on above: Performed By: #### A DIFF, ANEU, BMP, CBC, GFR #### [address] [address] Urea nitrogen [Mass/Vol] 7.0 mg/dL Low 8.0-22.0 [facility] Comment on above: Performed By: #### A DIFF, ANEU, BMP, CBC, GFR #### [address] [address] LABORATORYOrdered By: Jorge Wahl on 10-03-2024 Blood Glucose Testing Reason Routine (10/03/24 4:57 PM) [facility] Glucose [Mass/Vol] 81 mg/dL Normal 70 - 110 mg/dL [facility] LABORATORYOrdered By: Sophie Simental on 10-03-2024 Blood Glucose Testing Reason Routine (10/03/24 11:18 AM) [facility] Glucose [Mass/Vol] 99 mg/dL Normal 70 - 110 mg/dL [facility] LABORATORYOrdered By: SYSTEM SYSTEM on 10-03-2024 [...] above: Interpretive Data: T esting performed on Musiwave analyzer using enzymatic creatinine methodology. Electrolyte Balance [...] calculated value from Hemoglobin A1C and is credit resolution representative of the average blood glucose level [...] 10-03-2024 Cholesterol [Mass/Vol] 105 mg/dL Normal 50-199 [facility] Comment on above: Result Comment: Chol esterol Reference Interval: Less than 200 Desirable 200-239 Borderline high risk 240 and above High risk Performed By: #### C BC, MG, GFR, ADIFF, BMP, ANEU #### [place] [address] Cholesterol in HDL [Mass/Vol] 17 mg/dL Low 40-59 [facility] Comment on above: Performed By: #### C BC, MG, GFR, ADIFF, BMP, ANEU #### [place] [address] Cholesterol in LDL [Mass/Vol] 58 mg/dL Normal 0-129 [facility] Comment on above: Performed By: #### C BC, MG, GFR, ADIFF, BMP, ANEU #### [place] [address] Triglyceride [Mass/Vol] 151 mg/dL High 3-149 [facility] Comment on above: Performed By: #### C BC, MG, GFR, ADIFF, BMP, ANEU #### [place] [address] MGon 10-03-2024 Magnesium [Mass/Vol] 2.1 mg/dL Normal 1.6-2.4 [facility] Comment on above: Performed By: #### A DIFF, ANEU, BMP, CBC, GFR #### [address] [address] .Auto Diffon 10-02-2024 Basophil, Absolute 0.0 10 3/mcL Normal 0.0-0.3 [facility] Comment on above: Performed By: #### C BC, MG, GFR, ADIFF, BMP, ANEU #### [place] [address] Basophils/100 WBC (Bld) 0.6 % Normal 0.0-2.5 [facility] MAIN Comment on above: Performed By: #### C BC, MG, GFR, ADIFF, BMP, ANEU #### [place] [address] Eosinophil, Absolute 0.1 10 3/mcL Normal 0.0-0.7 [facility] MAIN Comment on above: Performed By: #### C BC, MG, GFR, ADIFF, BMP, ANEU #### [address] [address] Eosinophils/100 WBC (Bld) 1.0 % Normal 0.0-6.0 [facility] MAIN Comment on above: Performed By: #### C BC, MG, GFR, ADIFF, BMP, ANEU #### [address] [address] Lymphocyte, Absolute 1.2 10 3/mcL Normal 0.9-4.3 [facility] Comment on above: Performed By: #### C BC, MG, GFR, ADIFF, BMP, ANEU #### [address] [address] Lymphocytes/100 WBC (Bld) 18.1 % Low 20.0-40.0 [facility] MAIN Comment on above: Performed By: #### C BC, MG, GFR, ADIFF, BMP, ANEU #### [address] [address] Monocyte, Absolute 0.7 10 3/mcL Normal 0.1-1.4 [facility] MAIN Comment on above: Performed By: #### C BC, MG, GFR, ADIFF, BMP, ANEU #### [address] [address] Monocytes/100 WBC (Bld) 10.0 % Normal 2.0-13.0 [facility] Comment on above: Performed By: #### C BC, MG, GFR, ADIFF, BMP, ANEU #### [address] [address] Neutrophils/100 WBC (Bld) 70.3 % Normal 50.0-75.0 [facility] MAIN Comment on above: Performed By: #### C BC, MG, GFR, ADIFF, BMP, ANEU #### [address] [address] Basophil, Absolute 0.1 10 3/mcL Normal 0.0-0.3 [facility] Comment on above: Performed By: #### A ERIC, MDW, BMP, MG, GFR, ADIFF, DIMER, CBC, PBNP, TROPHS #### [address] [address] Basophils/100 WBC (Bld) 0.8 % Normal 0.0-2.5 [facility] Comment on above: Performed By: #### A MD ERICW, BMP, MG, GFR, ADIFF, DIMER, CBC, PBNP, TROPHS #### [address] [address] Eosinophil, Absolute 0.1 10 3/mcL Normal 0.0-0.7 [facility] Comment on above: Performed By: #### A ERIC, W, BMP, MG, GFR, ADIFF, DIMER, CBC, PBNP, TROPHS #### [address] [address] Eosinophils/100 WBC (Bld) 1.2 % Normal 0.0-6.0 [facility] Comment on above: Performed By: #### A MD ERICW, BMP, MG, GFR, ADIFF, DIMER, CBC, PBNP, TROPHS #### [address] [address] Lymphocyte, Absolute 1.4 10 3/mcL Normal 0.9-4.3 [facility] Comment on above: Performed By: #### A MD ERICW, BMP, MG, GFR, ADIFF, DIMER, CBC, PBNP, TROPHS #### [address] [address] Lymphocytes/100 WBC (Bld) 13.3 % Low 20.0-40.0 [facility] Comment on above: Performed By: #### A MD ERICW, BMP, MG, GFR, ADIFF, DIMER, CBC, PBNP, TROPHS #### [address] [address] Monocyte, Absolute 0.8 10 3/mcL Normal 0.1-1.4 [facility] Comment on above: Performed By: #### A ERICMDW, BMP, MG, GFR, ADIFF, DIMER, CBC, PBNP, TROPHS #### [address] [place] [address] Monocytes/100 WBC (Bld) 7.6 % Normal 2.0-13.0 A [facility] Comment on above: Performed By: #### A ELY REYES, BMP, MG, GFR, ADIFF, DIMER, CBC, PBNP, TROPHS #### [place] [address] [place], [place] [address] Neutrophils/100 WBC (Bld) 77.1 % High 50.0-75.0 [facility] Comment on above: Performed By: #### A MD ERICW, BMP, MG, GFR, ADIFF, DIMER, CBC, PBNP, TROPHS #### [place] [address] [place], [place] [address] .GFRon 10-02-2024 Estimated Glomerular Filtration Rate 110 ml/min/1.73sqm [facility] MAIN Comment on above: Result Comment: [...] eGFR results. Performed By: #### A DIFF, ANEU, BMP, CBC, GFR #### [facility] [address] [place] [address] Estimated Glomerular Filtration Rate 104 ml/min/1.73sqm Normal [facility] Comment on above: Result Comment: [...] GFR, ADIFF, DIMER, CBC, PBNP, TROPHS #### [address] [address] .MDWon 10-02-2024 Monocyte Distribution Width 19.51 Normal 0.00-20.00 [facility] Comment on above: Result Comment: For ED adult patients suspected of sepsis, MDW<=20.0 does not rule out sepsis or risk of sepsis Performed By: #### A ERIC, MDW, BMP, MG, GFR, ADIFF, DIMER, CBC, PBNP, TROPHS #### [address] [address] .NEUABSon 10-02-2024 Neutrophil, Absolute 4.7 10 3/mcL Normal 2.3-8.1 [facility] Comment on above: Performed By: #### C BC, MG, GFR, ADIFF, BMP, ANEU #### [address] [address] Neutrophil, Absolute 8.4 10 3/mcL High 2.3-8.1 [facility] Comment on above: Performed By: #### A ERIC, MDW, BMP, MG, GFR, ADIFF, DIMER, CBC, PBNP, TROPHS #### [address] [address] APTTon 10-02-2024 aPTT Coag (Bld) [Time] 36.5 s High 25.0-35.0 [facility] MAIN Comment on above: Result Comment: For Heparin anticoagulation therapy, the recommended therapeutic range is: 54-77 seconds (APTT Correlation with Anti-Xa therapeutic range of 0.3-0.7 units/ml). PLEASE REFERENCE THE PHARMACY PROTOCOL FOR DOSING. Performed By: #### A DIFF, ANEU, BMP, CBC, GFR #### [address] [address] aPTT Coag (Bld) [Time] 29.3 s Normal 25.0-35.0 [facility] MAIN Comment on above: Result Comment: For Heparin anticoagulation therapy, the recommended therapeutic range is: 54-77 seconds (APTT Correlation with Anti-Xa therapeutic range of 0.3-0.7 units/ml). PLEASE REFERENCE THE PHARMACY PROTOCOL FOR DOSING. Performed By: #### C BC, MG, GFR, ADIFF, BMP, ANEU #### [place] [id number] [place] [address] BUN/Creatinine Ratio 14 ratio Normal 7-27 [facility] Comment on above: Performed By: #### A ELY REYES, BMP, MG, GFR, ADIFF, DIMER, CBC, PBNP, TROPHS #### [address] [address] Calcium [Mass/Vol] 8.9 mg/dL Normal 8.4-10.2 [facility] Comment on above: Performed By: #### A ELY REYES, BMP, MG, GFR, ADIFF, DIMER, CBC, PBNP, TROPHS #### [address] [address] Chloride [Moles/Vol] 101 mmol/L Normal 98-107 [facility] Comment on above: Performed By: #### A ELY REYES, BMP, MG, GFR, ADIFF, DIMER, CBC, PBNP, TROPHS #### [address] [address] CO2 [Moles/Vol] 31 mmol/L High 22-29 [facility] Comment on above: Performed By: #### A ELY REYES, BMP, MG, GFR, ADIFF, DIMER, CBC, PBNP, TROPHS #### [address] [address] Creatinine [Mass/Vol] 0.85 mg/dL Normal 0.67-1.17 [facility] Comment on above: Performed By: #### A ELY REYES, BMP, MG, GFR, ADIFF, DIMER, CBC, PBNP, TROPHS #### [address] [address] Electrolyte Balance 6.0 mEq/L Normal 4.0-15.0 [facility] Comment on above: Performed By: #### A ELY REYES, BMP, MG, GFR, ADIFF, DIMER, CBC, PBNP, TROPHS #### [address] [address] Glucose [Mass/Vol] 157 mg/dL High 70-105 [facility] Comment on above: Performed By: #### A ELY REYES, BMP, MG, GFR, ADIFF, DIMER, CBC, PBNP, TROPHS #### [address] [address] Potassium [Moles/Vol] 3.1 mmol/L Low 3.5-5.1 [facility] Comment on above: Performed By: #### A ELY REYES, JULIÁN, MG, GFR, ADIFF, DIMER, CBC, PBNP, TROPHS #### [address] [address] Sodium [Moles/Vol] 138 mmol/L Normal 136-145 [facility] Comment on above: Performed By: #### A ELY REYES, JULIÁN, MG, GFR, ADIFF, DIMER, CBC, PBNP, TROPHS #### [address] [address] Urea nitrogen [Mass/Vol] 12 mg/dL Normal 7-18 [facility] Comment on above: Performed By: #### A ELY REYES, BMP, MG, GFR, ADIFF, DIMER, CBC, PBNP, TROPHS #### [address] [address] CAIONon 10-02-2024 Calcium Ionized 1.09 mmol/L Low 1.12-1.32 [facility] Comment on above: Performed By: #### C BC, MG, GFR, ADIFF, BMP, ANEU #### [facility] [address] [place] [address] CBCon 10-02-2024 Erythrocyte distribution width (RBC) [Ratio] 16.6 % High 11.5-15.5 [facility] MAIN Comment on above: Performed By: #### C BC, MG, GFR, ADIFF, BMP, ANEU #### [place] [address] Hematocrit (Bld) [Volume fraction] 47.4 % Normal 40.0-52.0 [facility] MAIN Comment on above: Performed By: #### C BC, MG, GFR, ADIFF, BMP, ANEU #### [place] [address] Hgb 15.6 G/dL Normal 13.0-17.5 [facility] MAIN Comment on above: Performed By: #### C BC, MG, GFR, ADIFF, BMP, ANEU #### [place] [address] MCH (RBC) [Entitic mass] 28.7 pg Normal 27.0-33.0 [facility] MAIN Comment on above: Performed By: #### C BC, MG, GFR, ADIFF, BMP, ANEU #### [place] [address] MCHC 32.9 G/dL Normal 32.0-36.0 [facility] MAIN Comment on above: Performed By: #### C BC, MG, GFR, ADIFF, BMP, ANEU #### [place] [address] MCV (RBC) [Entitic vol] 87.2 fL Normal 81.0-100.0 [facility] Comment on above: Performed By: #### C BC, MG, GFR, ADIFF, BMP, ANEU #### [place] [address] Platelet 139 10 3/mcL Low 150-450 [facility] MAIN Comment on above: Performed By: #### C BC, MG, GFR, ADIFF, BMP, ANEU #### [place] [address] Platelet mean volume (Bld) [Entitic vol] 7.7 fL Normal 6.4-10.5 [facility] MAIN Comment on above: Performed By: #### C BC, MG, GFR, ADIFF, BMP, ANEU #### [address] [address] RBC 5.44 10 6/mcL Normal 4.50-6.00 [facility] MAIN Comment on above: Performed By: #### C BC, MG, GFR, ADIFF, BMP, ANEU #### [address] [address] WBC 6.6 10 3/mcL Normal 4.5-10.8 [facility] MAIN Comment on above: Performed By: #### C BC, MG, GFR, ADIFF, BMP, ANEU #### [address] [address] Erythrocyte distribution width (RBC) [Ratio] 16.6 % High 11.5-15.5 [facility] Comment on above: Performed By: #### A MD ERICW, BMP, MG, GFR, ADIFF, DIMER, CBC, PBNP, TROPHS #### [address] [address] Hematocrit (Bld) [Volume fraction] 51.4 % Normal 40.0-52.0 [facility] Comment on above: Performed By: #### A MD ERICW, BMP, MG, GFR, ADIFF, DIMER, CBC, PBNP, TROPHS #### [address] [address] Hgb 17.1 G/dL Normal 13.0-17.5 [facility] Comment on above: Performed By: #### A MD ERICW, BMP, MG, GFR, ADIFF, DIMER, CBC, PBNP, TROPHS #### [address] [address] MCH (RBC) [Entitic mass] 28.9 pg Normal 27.0-33.0 [facility] Comment on above: Performed By: #### A MD ERICW, BMP, MG, GFR, ADIFF, DIMER, CBC, PBNP, TROPHS #### [address] [address] MCHC 33.3 G/dL Normal 32.0-36.0 [facility] Comment on above: Performed By: #### A MD ERICW, BMP, MG, GFR, ADIFF, DIMER, CBC, PBNP, TROPHS #### [address] [address] MCV (RBC) [Entitic vol] 86.7 fL Normal 81.0-100.0 [facility] Comment on above: Performed By: #### A MD ERICW, BMP, MG, GFR, ADIFF, DIMER, CBC, PBNP, TROPHS #### [address] [address] Platelet 199 10 3/mcL Normal 150-450 [facility] Comment on above: Performed By: #### A MD ERICW, BMP, MG, GFR, ADIFF, DIMER, CBC, PBNP, TROPHS #### [address] [address] Platelet mean volume (Bld) [Entitic vol] 7.3 fL Normal 6.4-10.5 [facility] Comment on above: Performed By: #### A MD ERICW, BMP, MG, GFR, ADIFF, DIMER, CBC, PBNP, TROPHS #### [address] [address] RBC 5.93 10 6/mcL Normal 4.50-6.00 [facility] Comment on above: Performed By: #### A ERICMDW, BMP, MG, GFR, ADIFF, DIMER, CBC, PBNP, TROPHS #### [address] [address] WBC 10.9 10 3/mcL High 4.5-10.8 [facility] Comment on above: Performed By: #### A ERICMDW, BMP, MG, GFR, ADIFF, DIMER, CBC, PBNP, TROPHS #### [address] [address] CMPon 10-02-2024 Albumin Level 3.2 G/dL Normal 3.2-4.8 [facility] Comment on above: Performed By: #### A DIFF, ANEU, BMP, CBC, GFR #### [address] [address] Albumin/Globulin [Mass ratio] 0.9 {ratio} Normal 0.9-1.6 [facility] MAIN Comment on above: Performed By: #### A DIFF, ANEU, BMP, CBC, GFR #### [place] [id number] ALP [Catalytic activity/Vol] 60 U/L Normal 38-126 [facility] MAIN Comment on above: Performed By: #### A DIFF, ANEU, BMP, CBC, GFR #### [place] [id number] ALT/SGPT <8 Low 12-55 [facility] MAIN Comment on above: Performed By: #### A DIFF, ANEU, BMP, CBC, GFR #### [place] [id number] AST [Catalytic activity/Vol] 15 U/L Normal 8-34 [facility] MAIN Comment on above: Performed By: #### A DIFF, ANEU, BMP, CBC, GFR #### [place] [id number] Bili Total 0.60 mg/dL Normal 0.20-1.20 [facility] MAIN Comment on above: Result Comment: Use of this assay is not recommended for patients undergoing treatment with eltrombopag due to the potential for falsely elevated results. Performed By: #### A DIFF, ANEU, BMP, CBC, GFR #### [place] [id number] BUN/Creatinine Ratio 15.5 ratio Normal 10.0-22.0 [facility] MAIN Comment on above: Performed By: #### A DIFF, ANEU, BMP, CBC, GFR #### [place] [id number] Calcium [Mass/Vol] 8.4 mg/dL Low 8.7-10.4 [facility] MAIN Comment on above: Performed By: #### A DIFF, ANEU, BMP, CBC, GFR #### [place] [id number] Chloride [Moles/Vol] 102 mmol/L Normal 98-110 [facility]IN Comment on above: Performed By: #### A DIFF, ANEU, BMP, CBC, GFR #### [address] [address] CO2 [Moles/Vol] 25 mmol/L Normal 22-32 [facility] MAIN Comment on above: Performed By: #### A DIFF, ANEU, BMP, CBC, GFR #### [place] [id number] Creatinine [Mass/Vol] 0.71 mg/dL Normal 0.60-1.40 [facility] MAIN Comment on above: Result Comment: Test ing performed on Musiwave analyzer using enzymatic creatinine methodology. Performed By: #### A DIFF, ANEU, BMP, CBC, GFR #### [place] [id number] Electrolyte Balance 12.0 mEq/L Normal 4.0-15.0 [facility] MAIN Comment on above: Performed By: #### A DIFF, ANEU, BMP, CBC, GFR #### [place] [id number] Globulin 3.5 G/dL Normal 2.5-4.2 [facility]IN Comment on above: Performed By: #### A DIFF, ANEU, BMP, CBC, GFR #### [place] [id number] Glucose [Mass/Vol] 109 mg/dL Normal 70-110 [facility] MAIN Comment on above: Performed By: #### A DIFF, ANEU, BMP, CBC, GFR #### [address] [address] Potassium [Moles/Vol] 3.5 mmol/L Normal 3.5-5.0 [facility] MAIN Comment on above: Performed By: #### A DIFF, ANEU, BMP, CBC, GFR #### [place] [id number] Sodium [Moles/Vol] 139 mmol/L Normal 136-145 [facility] MAIN Comment on above: Performed By: #### A DIFF, ANEU, BMP, CBC, GFR #### [place] [id number] Total Protein 6.7 G/dL Normal 5.7-8.2 [facility]IN Comment on above: Performed By: #### A DIFF, ANEU, BMP, CBC, GFR #### [address] [address] Urea nitrogen [Mass/Vol] 11.0 mg/dL Normal 8.0-22.0 [facility]IN Comment on above: Performed By: #### A DIFF, ANEU, BMP, CBC, GFR #### [address] [address] LABORATORYOrdered By: SYSTEM SYSTEM on 10-02-2024 aPTT [...] above: Interpretive Data: T esting performed on Musiwave analyzer using enzymatic creatinine methodology. Electrolyte Balance [...] 139 103/mcL Low 150 - 450 10^3/mcL AH [...] [employer] Comment on above: Interpretive Data: T temitope [employer] (CHEST, 1991, 102:312S-25S) [...] ng/L Male: 0-54 ng/L Testing performed on [employer] analyzer using direct chemiluminescent technology. TSH Qn [...] 9 ng/L Normal 0 - 76 ng/L ADM SS Comment on above: Interpretive Data: H igh Sensitive Troponin I Reference Ranges: Female: 0-51 ng/L Male: 0-76 ng/L Testing performed on [employer] using a homogeneous sandwich chemiluminescent immunoassay based on ISpeak technology. Basophils (Bld) [#/Vol] 0.1 103/mcL Normal [...] Comment on above: Interpretive Data: Baljinder linn [employer] (CHEST, 1991, 102:312S-25S) [...] ng/L Male: 0-76 ng/L Testing performed on [employer] using a homogeneous sandwich chemiluminescent immunoassay based on ISpeak technology. Urea nitrogen [Mass/Vol] 12 mg/dL Normal [...] [Mass/Vol] 1.8 mg/dL Normal 1.6-2.4 [facility] Comment on above: Performed By: #### A DIFF, ANEU, BMP, CBC, GFR #### [facility] [address] [place] [address] Magnesium [Mass/Vol] 1.7 mg/dL Low 1.8-2.4 [facility] Comment on above: Performed By: #### A ERIC, MDW, BMP, MG, GFR, ADIFF, DIMER, CBC, PBNP, TROPHS #### [facility] [address] [place], [place] [address] PBNPon 10-02-2024 Natriuretic peptide B (Bld) [Mass/Vol] 2223 pg/mL High 0-900 [facility] MAIN Comment on above: Performed By: #### A DIFF, ANEU, BMP, CBC, GFR #### [facility] [address] [place] [address] Natriuretic peptide B (Bld) [Mass/Vol] 973 pg/mL High 0-125 [facility] Comment on above: Result Comment: NT-p roBNP results of less than 300 pg/mL effectively rules out acute congestive heart failure with 99% negative predictive value. Performed By: #### A ERIC, MDW, BMP, MG, GFR, ADIFF, DIMER, CBC, PBNP, TROPHS #### [facility] [address] [place], [place] [address] PHOSon 10-02-2024 Phosphate [Mass/Vol] 2.2 mg/dL Low 2.4-5.1 [facility] MAIN Comment on above: Result Comment: No te - New Reference Range in effect 19 Performed By: #### A DIFF, ANEU, BMP, CBC, GFR #### [address] [address] PROon 10-02-2024 INR Coag (PPP) [Relative time] 1.2 {INR} Normal [facility] MAIN Comment on above: Result Comment: The [employer] (CHEST, 1992, 102:312S-25S) recommended therapeutic range for oral anticoagulant therapy is: LOW RISK: Prophylaxis of venous thrombosis INR: 2.0-3.0 Treatment of pulmonary embolism 2.0-3.0 Prevention of systemic embolism 2.0-3.0 HIGH RISK: Mechanical prosthetic valves 2.5-3.5 Performed By: #### C BC, MG, GFR, ADIFF, BMP, ANEU #### [address] [address] PT Coag (PPP) [Time] 13.4 s Normal 9.0-14.4 [facility] MAIN Comment on above: Result Comment: Effe ctive 12/11/07, Protime results may be affected by some antibiotics (i.e. Ciprofloxacin, Azithromycin, Bactrim) which may potentiate the action of oral anticoagulants, with further increases in Protime/INR. Performed By: #### C BC, MG, GFR, ADIFF, BMP, ANEU #### [address] [address] PT Coag (PPP) [Time] 13.5 s Normal 9.0-14.4 [facility] Comment on above: Performed By: #### A ELY REYES, JULIÁN, MG, GFR, ADIFF, DIMER, CBC, PBNP, TROPHS #### [address] [address] PT International Ratio 1.2 Normal [facility] Comment on above: Result Comment: The [employer] (CHEST, 1992, 102:312S-25S) recommended therapeutic range for oral anticoagulant therapy is: LOW RISK: Prophylaxis of venous thrombosis INR: 2.0-3.0 Treatment of pulmonary embolism 2.0-3.0 Prevention of systemic embolism 2.0-3.0 HIGH RISK: Mechanical prosthetic valves 2.5-3.5 Performed By: #### A ELY REYES, JULIÁN, MG, GFR, ADIFF, DIMER, CBC, PBNP, TROPHS #### [address] [address] TROPHSon 10-02-2024 High Sensitivity Troponin I 6 ng/L Normal 0-54 [facility] Comment on above: Result Comment: High Sensitive Troponin I Reference Ranges: Female: 0-34 ng/L Male: 0-54 ng/L Testing performed on [employer] analyzer using direct chemiluminescent technology. Performed By: #### C BC, MG, GFR, ADIFF, BMP, ANEU #### [address] [address] High Sensitivity Troponin I 9 ng/L Normal 0-76 [facility] Comment on above: Result Comment: High Sensitive Troponin I Reference Ranges: Female: 0-51 ng/L Male: 0-76 ng/L Testing performed on [employer] using a homogeneous sandwich chemiluminescent immunoassay based on LOCI technology. Performed By: #### A ELY REYES, JULIÁN, MG, GFR, ADIFF, DIMER, CBC, PBNP, TROPHS #### [address] [place] [address] High Sensitivity Troponin I 9 ng/L Normal 0-76 [facility] Comment on above: Result Comment: High Sensitive Troponin I Reference Ranges: Female: 0-51 ng/L Male: 0-76 ng/L Testing performed on [employer] using a homogeneous sandwich chemiluminescent immunoassay based on ISpeak technology. Performed By: #### A ERIC, MDW, BMP, MG, GFR, ADIFF, DIMER, CBC, PBNP, TROPHS #### [facility] [address] [place], [place] [address] TSHon 10-02-2024 TSH 1.923 mIU/mL Normal 0.550-4.780 [facility]IN Comment on above: Performed By: #### A DIFF, ANEU, BMP, CBC, GFR #### [facility] [address] [place] [address] XR CHEST 1 VIEWon 10-02-2024 XR CHEST [...] Date: 10/02/2024 2:02:33 AM Ordering Provider: DELORES Kate [facility] XR ANKLE MINIMUM 3 VIEWS LEF Ton [...] 08/29/2024 3:52:38 PM Ordering Provider: EDER FARFAN [facility] XR CHEST 2 VIEWSon XR CHEST [...] Date: 08/29/2024 4:51:29 PM Ordering Provider: GIRMA Kate [facility] .Auto Diffon 08-13-2024 Basophil, Absolute 0.0 10 3/mcL Normal 0.0-0.2 [facility] Comment on above: Performed By: #### A MD ERICW, BMP, MG, GFR, ADIFF, DIMER, CBC, PBNP, TROPHS #### [address] [address] Basophils/100 WBC (Bld) 0.7 % Normal 0.0-2.5 [facility] Comment on above: Performed By: #### A ERIC, W, BMP, MG, GFR, ADIFF, DIMER, CBC, PBNP, TROPHS #### [address] [address] Eosinophil, Absolute 0.1 10 3/mcL Normal 0.0-0.7 [facility] Comment on above: Performed By: #### A MD ERICW, BMP, MG, GFR, ADIFF, DIMER, CBC, PBNP, TROPHS #### [address] [address] Eosinophils/100 WBC (Bld) 1.3 % Normal 0.0-7.0 [facility] Comment on above: Performed By: #### A MD ERICW, BMP, MG, GFR, ADIFF, DIMER, CBC, PBNP, TROPHS #### [address] [address] Lymphocyte, Absolute 0.8 10 3/mcL Low 0.9-4.3 [facility] Comment on above: Performed By: #### A ERIC, W, BMP, MG, GFR, ADIFF, DIMER, CBC, PBNP, TROPHS #### [address] [address] Lymphocytes/100 WBC (Bld) 19.9 % Low 20.0-40.0 [facility] Comment on above: Performed By: #### A MD ERICW, BMP, MG, GFR, ADIFF, DIMER, CBC, PBNP, TROPHS #### [address] [address] Monocyte, Absolute 0.3 10 3/mcL Normal 0.1-1.4 [facility] Comment on above: Performed By: #### A ELY REYES, BMP, MG, GFR, ADIFF, DIMER, CBC, PBNP, TROPHS #### [address] [address] Monocytes/100 WBC (Bld) 6.9 % Normal 2.0-13.0 [facility] Comment on above: Performed By: #### A ELY REYES, BMP, MG, GFR, ADIFF, DIMER, CBC, PBNP, TROPHS #### [place] [address] [place], [place] [address] Neutrophils/100 WBC (Bld) 71.2 % Normal 50.0-75.0 [facility] Comment on above: Performed By: #### A ELY REYES, JULIÁN, MG, GFR, ADIFF, DIMER, CBC, PBNP, TROPHS #### [place] [address] [place], [place] [address] .GFRon 08-13-2024 Estimated Glomerular Filtration Rate 107 ml/min/1.73sqm Normal [facility] Comment on above: Result Comment: [...] GFR, ADIFF, DIMER, CBC, PBNP, TROPHS #### [id number] [place], [place] [address] .MDWon 08-13-2024 Monocyte Distribution Width 19.39 Normal 0.00-20.00 [facility] Comment on above: Result Comment: For ED adult patients suspected of sepsis, MDW<=20.0 does not rule out sepsis or risk of sepsis Performed By: #### A ELY REYES, BMP, MG, GFR, ADIFF, DIMER, CBC, PBNP, TROPHS #### [address] [id number] .NEUABSon 08-13-2024 Neutrophil, Absolute 2.9 10 3/mcL Normal 2.3-8.1 [facility] Comment on above: Performed By: #### A ELY REYES, BMP, MG, GFR, ADIFF, DIMER, CBC, PBNP, TROPHS #### [address] [place] [address] CBCon 08-13-2024 Erythrocyte distribution width (RBC) [Ratio] 17.1 % High 11.5-15.5 [facility] Comment on above: Performed By: #### A ELY REYES, BMP, MG, GFR, ADIFF, DIMER, CBC, PBNP, TROPHS #### [address] [address] Hematocrit (Bld) [Volume fraction] 42.8 % Normal 40.0-52.0 [facility] Comment on above: Performed By: #### A ELY REYES, BMP, MG, GFR, ADIFF, DIMER, CBC, PBNP, TROPHS #### [place] [address] Hgb 14.0 G/dL Normal 13.0-17.5 [facility] Comment on above: Performed By: #### A ELY REYES, BMP, MG, GFR, ADIFF, DIMER, CBC, PBNP, TROPHS #### [address] [address] [address] MCH (RBC) [Entitic mass] 27.9 pg Normal 27.0-33.0 [facility] Comment on above: Performed By: #### A ELY REYES, BMP, MG, GFR, ADIFF, DIMER, CBC, PBNP, TROPHS #### [address] [address] MCHC 32.8 G/dL Normal 32.0-36.0 [facility] Comment on above: Performed By: #### A ELY REYES, BMP, MG, GFR, ADIFF, DIMER, CBC, PBNP, TROPHS #### [address] [address] MCV (RBC) [Entitic vol] 84.9 fL Normal 81.0-100.0 [facility] Comment on above: Performed By: #### A ELY REYES, BMP, MG, GFR, ADIFF, DIMER, CBC, PBNP, TROPHS #### [place] [id number] Platelet 137 10 3/mcL Low 150-450 [facility] Comment on above: Performed By: #### A ELY REYES, JULIÁN, MG, GFR, ADIFF, DIMER, CBC, PBNP, TROPHS #### [address] [address] Platelet mean volume (Bld) [Entitic vol] 6.7 fL Normal 6.4-10.5 [facility] Comment on above: Performed By: #### A ELY REYES, JULIÁN, MG, GFR, ADIFF, DIMER, CBC, PBNP, TROPHS #### [address] [address] RBC 5.04 10 6/mcL Normal 4.50-6.00 [facility] Comment on above: Performed By: #### A ELY REYES, BMP, MG, GFR, ADIFF, DIMER, CBC, PBNP, TROPHS #### [address] [address] WBC 4.1 10 3/mcL Low 4.5-10.8 [facility] Comment on above: Performed By: #### A ELY REYES, JULIÁN, MG, GFR, ADIFF, DIMER, CBC, PBNP, TROPHS #### [address] [address] CMPon 08-13-2024 Albumin Level 3.3 G/dL Low 3.5-5.0 [facility] Comment on above: Performed By: #### A ELY REYES, BMP, MG, GFR, ADIFF, DIMER, CBC, PBNP, TROPHS #### [place] [address] Albumin/Globulin [Mass ratio] 0.8 {ratio} Low 1.1-2.5 [facility] Comment on above: Performed By: #### A ELY REYES, BMP, MG, GFR, ADIFF, DIMER, CBC, PBNP, TROPHS #### [place] [address] ALP [Catalytic activity/Vol] 76 U/L Normal 40-135 [facility] Comment on above: Performed By: #### A ELY REYES, BMP, MG, GFR, ADIFF, DIMER, CBC, PBNP, TROPHS #### [place] [address] ALT [Catalytic activity/Vol] 10 U/L Low 16-63 [facility] Comment on above: Performed By: #### A ELY REYES, BMP, MG, GFR, ADIFF, DIMER, CBC, PBNP, TROPHS #### [place] [address] AST [Catalytic activity/Vol] 14 U/L Normal 10-40 [facility] Comment on above: Performed By: #### A ELY REYES, BMP, MG, GFR, ADIFF, DIMER, CBC, PBNP, TROPHS #### [place] [address] Bili Total 0.4 mg/dL Normal 0.2-1.0 [facility] Comment on above: Result Comment: Use of this assay is not recommended for patients undergoing treatment with eltrombopag due to the potential for falsely elevated results. Performed By: #### A ELY REYES, BMP, MG, GFR, ADIFF, DIMER, CBC, PBNP, TROPHS #### [place] [address] BUN/Creatinine Ratio 13 ratio Normal 7-27 [facility] Comment on above: Performed By: #### A ELY REYES, BMP, MG, GFR, ADIFF, DIMER, CBC, PBNP, TROPHS #### [place] [address] Calcium [Mass/Vol] 8.6 mg/dL Normal 8.4-10.2 [facility] Comment on above: Performed By: #### A ELY REYES, BMP, MG, GFR, ADIFF, DIMER, CBC, PBNP, TROPHS #### [place] [address] Chloride [Moles/Vol] 101 mmol/L Normal 98-107 [facility] Comment on above: Performed By: #### A ELY REYES, BMP, MG, GFR, ADIFF, DIMER, CBC, PBNP, TROPHS #### [place] [address] CO2 [Moles/Vol] 35 mmol/L High 22-29 [facility] Comment on above: Performed By: #### A ELY REYES, BMP, MG, GFR, ADIFF, DIMER, CBC, PBNP, TROPHS #### [place] [address] Creatinine [Mass/Vol] 0.78 mg/dL Normal 0.70-1.30 [facility] Comment on above: Result Comment: Test ing performed on Siemens Dimension EXL analyzer using a modified kinetic Ciera technique. Performed By: #### A ELY REYES, BMP, MG, GFR, ADIFF, DIMER, CBC, PBNP, TROPHS #### [place] [address] Electrolyte Balance 2.0 mEq/L Low 4.0-15.0 [facility] Comment on above: Performed By: #### A ELY REYES, BMP, MG, GFR, ADIFF, DIMER, CBC, PBNP, TROPHS #### [place] [address] Globulin 3.9 G/dL High 1.5-3.8 [facility] Comment on above: Performed By: #### A LEY REYES, BMP, MG, GFR, ADIFF, DIMER, CBC, PBNP, TROPHS #### [address] [address] Glucose [Mass/Vol] 105 mg/dL Normal 70-105 [facility] Comment on above: Performed By: #### A ELY REYES, BMP, MG, GFR, ADIFF, DIMER, CBC, PBNP, TROPHS #### [address] [address] Potassium [Moles/Vol] 3.8 mmol/L Normal 3.5-5.1 [facility] Comment on above: Performed By: #### A ELY REYES, BMP, MG, GFR, ADIFF, DIMER, CBC, PBNP, TROPHS #### [address] [address] Sodium [Moles/Vol] 138 mmol/L Normal 136-145 [facility] Comment on above: Performed By: #### A ELY REYES, BMP, MG, GFR, ADIFF, DIMER, CBC, PBNP, TROPHS #### [address] [address] Total Protein 7.2 G/dL Normal 6.4-8.2 [facility] Comment on above: Performed By: #### A ELY REYES, BMP, MG, GFR, ADIFF, DIMER, CBC, PBNP, TROPHS #### [address] [address] Urea nitrogen [Mass/Vol] 10 mg/dL Normal 7-18 [facility] Comment on above: Performed By: #### A ELY REYES, BMP, MG, GFR, ADIFF, DIMER, CBC, PBNP, TROPHS #### [address] [address] CVFLURVon 08-13-2024 FLU A PCR Negative Normal Negative [facility] Comment on above: Performed By: #### C VFLURV #### [address] [address] FLU B PCR Negative Normal Negative [facility] Comment on above: Performed By: #### C VFLURV #### [address] [address] RSV PCR Negative Normal Negative [facility] Comment on above: Performed By: #### C VFLURV #### [address] [address] SARS-CoV-2 (COVID-19) RNA ROSE+probe Ql (Unsp spec) Negative Normal Negative [facility] Comment on above: Result Comment: [...] results. Performed By: #### C VFLURV #### [place] [address] PBNPon 08-13-2024 Natriuretic peptide B (Bld) [Mass/Vol] 456 pg/mL High 0-125 [facility] Comment on above: Result Comment: NT-p roBNP results of less than 300 pg/mL effectively rules out acute congestive heart failure with 99% negative predictive value. Performed By: #### A ERCI, MDW, BMP, MG, GFR, ADIFF, DIMER, CBC, PBNP, TROPHS #### [address] [address] TROPHSon 08-13-2024 High Sensitivity Troponin I 8 ng/L Normal 0-76 [facility] Comment on above: Result Comment: High Sensitive Troponin I Reference Ranges: Female: 0-51 ng/L Male: 0-76 ng/L Testing performed on [employer] using a homogeneous sandwich chemiluminescent immunoassay based on ISpeak technology. Performed By: #### A ERIC, W, BMP, MG, GFR, ADIFF, DIMER, CBC, PBNP, TROPHS #### [facility] [address] [place], [place] [address] XR CHEST 1 VIEWon 08-13-2024 XR CHEST [...] 08/13/2024 11:55:14 AM Ordering Provider: WILNER JOE [facility] .GFRon 05-14-2024 GFR Non- 90 ml/min/1.73sqm [facility] Comment on above: Result Comment: GFR [...] GFR, ADIFF, DIMER, CBC, PBNP, TROPHS #### [address] [address] GFR 109 ml/min/1.73sqm Normal [facility] Comment on above: Result Comment: [...] GFR, ADIFF, DIMER, CBC, PBNP, TROPHS #### [address] [address] A1Con 05-14-2024 Glucose [Mass/Vol] 120 mg/dL Normal [facility] Comment on above: Result Comment: Zahida mated Average Glucose calculated by equation ((28.7xA1C)-46.7) Estimated average glucose (eAG) is a calculated value from Hemoglobin A1C and is credit resolution representative of the average blood glucose level in the last 2-3 month period. Normal range: less than 114 mg/dL Performed By: #### A ELY REYES, BMP, MG, GFR, ADIFF, DIMER, CBC, PBNP, TROPHS #### [address] [address] HbA1c (Bld) [Mass fraction] 5.8 % Normal 4.3-6.4 [facility] Comment on above: Performed By: #### A ELY REYES, BMP, MG, GFR, ADIFF, DIMER, CBC, PBNP, TROPHS #### [address] [address] CMPon 05-14-2024 Albumin Level 3.4 G/dL Low 3.5-5.0 [facility] Comment on above: Performed By: #### A ELY REYES, BMP, MG, GFR, ADIFF, DIMER, CBC, PBNP, TROPHS #### [address] [address] Albumin/Globulin [Mass ratio] 0.9 {ratio} Low 1.1-2.5 [facility] Comment on above: Performed By: #### A ELY REYES, BMP, MG, GFR, ADIFF, DIMER, CBC, PBNP, TROPHS #### [address] [address] ALP [Catalytic activity/Vol] 87 U/L Normal 40-135 [facility] Comment on above: Performed By: #### A ELY REYES, BMP, MG, GFR, ADIFF, DIMER, CBC, PBNP, TROPHS #### [address] [address] ALT [Catalytic activity/Vol] 17 U/L Normal 16-63 [facility] Comment on above: Performed By: #### A ELY REYES, BMP, MG, GFR, ADIFF, DIMER, CBC, PBNP, TROPHS #### [address] [address] AST [Catalytic activity/Vol] 12 U/L Normal 10-40 [facility] Comment on above: Performed By: #### A ELY REYES, BMP, MG, GFR, ADIFF, DIMER, CBC, PBNP, TROPHS #### [address] [address] Bili Total 0.3 mg/dL Normal 0.2-1.0 [facility] Comment on above: Result Comment: Use of this assay is not recommended for patients undergoing treatment with eltrombopag due to the potential for falsely elevated results. Performed By: #### A ELY REYES, BMP, MG, GFR, ADIFF, DIMER, CBC, PBNP, TROPHS #### [address] [address] BUN/Creatinine Ratio 15 ratio Normal 7-27 [facility] Comment on above: Performed By: #### A ELY REYES, BMP, MG, GFR, ADIFF, DIMER, CBC, PBNP, TROPHS #### [place] [address] Calcium [Mass/Vol] 8.9 mg/dL Normal 8.4-10.2 [facility] Comment on above: Performed By: #### A ELY REYES, BMP, MG, GFR, ADIFF, DIMER, CBC, PBNP, TROPHS #### [place] [address] Chloride [Moles/Vol] 101 mmol/L Normal 98-107 [facility] Comment on above: Performed By: #### A ELY REYES, BMP, MG, GFR, ADIFF, DIMER, CBC, PBNP, TROPHS #### [place] [id number] CO2 [Moles/Vol] 34 mmol/L High 22-29 [facility] Comment on above: Performed By: #### A ELY REYES, BMP, MG, GFR, ADIFF, DIMER, CBC, PBNP, TROPHS #### [address] [address] Creatinine [Mass/Vol] 0.89 mg/dL Normal 0.70-1.30 [facility] Comment on above: Result Comment: Test ing performed on Siemens Dimension EXL analyzer using a modified kinetic Ciera technique. Performed By: #### A ELY REYES, BMP, MG, GFR, ADIFF, DIMER, CBC, PBNP, TROPHS #### [place] [address] Electrolyte Balance 5.0 mEq/L Normal 4.0-15.0 [facility] Comment on above: Performed By: #### A ELY REYES, BMP, MG, GFR, ADIFF, DIMER, CBC, PBNP, TROPHS #### [address] [address] Globulin 3.8 G/dL Normal [facility] Comment on above: Performed By: #### A ELY REYES, BMP, MG, GFR, ADIFF, DIMER, CBC, PBNP, TROPHS #### [address] [address] Glucose [Mass/Vol] 99 mg/dL Normal 70-105 [facility] Comment on above: Performed By: #### A ELY REYES, BMP, MG, GFR, ADIFF, DIMER, CBC, PBNP, TROPHS #### [address] [address] Potassium [Moles/Vol] 4.0 mmol/L Normal 3.5-5.1 [facility] Comment on above: Performed By: #### A ELY REYES, JULIÁN, MG, GFR, ADIFF, DIMER, CBC, PBNP, TROPHS #### [address] [address] Sodium [Moles/Vol] 140 mmol/L Normal 136-145 [facility] Comment on above: Performed By: #### A ELY REYES, JULIÁN, MG, GFR, ADIFF, DIMER, CBC, PBNP, TROPHS #### [address] [address] Total Protein 7.2 G/dL Normal 6.4-8.2 [facility] Comment on above: Performed By: #### A ELY REYES, JULIÁN, MG, GFR, ADIFF, DIMER, CBC, PBNP, TROPHS #### [address] [address] Urea nitrogen [Mass/Vol] 13 mg/dL Normal 7-18 [facility] Comment on above: Performed By: #### A ELY REYES, BMP, MG, GFR, ADIFF, DIMER, CBC, PBNP, TROPHS #### [address] [address] LABORATORYOrdered By: SYSTEM SYSTEM on 05-14-2024 Albumin [...] calculated value from Hemoglobin A1C and is credit resolution representative of the average blood glucose level [...] 05-14-2024 Cholesterol [Mass/Vol] 144 mg/dL Normal 0-200 [facility] Comment on above: Result Comment: Chol esterol Reference Interval: Less than 200 Desirable 200-239 Borderline high risk 240 and above High risk Performed By: #### A ELY REYES, BMP, MG, GFR, ADIFF, DIMER, CBC, PBNP, TROPHS #### [address] [address] Cholesterol in HDL [Mass/Vol] 24 mg/dL Low 40-60 [facility] Comment on above: Performed By: #### A ELY REYES, JULIÁN, MG, GFR, ADIFF, DIMER, CBC, PBNP, TROPHS #### [address] [address] Cholesterol in LDL [Mass/Vol] 72 mg/dL Normal 0-130 [facility] Comment on above: Performed By: #### A ELY REYES, BMP, MG, GFR, ADIFF, DIMER, CBC, PBNP, TROPHS #### [address] [address] Triglyceride [Mass/Vol] 242 mg/dL High 0-150 [facility] Comment on above: Result Comment: Trig lyceride Reference Interval: Less than 150 Normal 150-199 Borderline high risk 200-499 High risk 500 or higher Very high risk Performed By: #### A ELY REYES, BMP, MG, GFR, ADIFF, DIMER, CBC, PBNP, TROPHS #### [address] [address] Final Surgical Pathology Rep ezequiel 03-27-2024 Final Surgical Pathology Report . Pathology Reports Accession: Collected Date/Time: Received Date/Time: Pathologist: [id number] 03/25/2024 15:47 EDT 03/26/2024 07:38 EDT BEAU WILBURN MD Final Surgical Pathology Report DIAGNOSIS: RIGHT ARM EXCISION: - GLOMANGIOMYOMA CLINICAL INFORMATION: SKIN LESION Procedure: EXCISION Preoperative diagnosis: SKIN LESION Postoperative diagnosis: SKIN LESION SPECIMEN: A RIGHT ARM GROSS DESCRIPTION: All parts labelled with patient name and [id number] Received in formalin labelled "right arm excision" Is a unoriented ellipse of skin measuring 1.5 x 0.4 and excised to depth of 1.2 cm. Excision margin inked black. Skin surface grossly unremarkable, located within the underlying soft tissue is a santillan firm well-circumscribed possible mass/lymph node measuring 0.6 x 0.6 x 0.6 cm. TS-2 Austin Somers, Pathologists' Grinding Operator (ASCP) Performed by [facility]UST[facility] SOMERS MICROSCOPIC DESCRIPTION: The microscopic examination is performed, except in the case of Gross Only. Electronically Signed by Pathology Report verified by [facility] BEAU WILBURN Sign out Date: 03/27/2024 16:10 Performing Lab: [facility], [address] [place] [address] Pathology Dept Disclaimer If ancillary studies were utilized, the following Laboratory Developed Test (LDT) disclaimer will apply: Under CLIA requirements, [facility] is qualified to perform high complexity testing. For all ancillary stains, positive and negative controls stain appropriately. Performance characteristics of immunohistochemical and chromogenic in-situ hybridization tests have been determined by [facility]. These tests are used for clinical purposes, They should not be regarded as investigational or for research. Normal [facility] US SOFT TISSUE MASS OF [...] 11:09:23 AM Ordering Provider: GIRMA CORREA Normal [facility] TSHon 02-15-2024 TSH Qn 1.65 m[IU]/L Normal 0.36-3.74 [facility] Comment on above: Performed By: #### A ELY REYES, JULIÁN, MG, GFR, ADIFF, DIMER, CBC, PBNP, TROPHS #### [address] [address] .GFRon 02-12-2024 GFR 95 ml/min/1.73sqm Normal [facility] Comment on above: Result Comment: [...] GFR, ADIFF, DIMER, CBC, PBNP, TROPHS #### [address] [address] GFR Non- 78 ml/min/1.73sqm Normal [facility] Comment on above: Result Comment: [...] GFR, ADIFF, DIMER, CBC, PBNP, TROPHS #### [address] [address] A1Con 02-12-2024 Glucose [Mass/Vol] 131 mg/dL Normal [facility] Comment on above: Result Comment: Zahida mated Average Glucose calculated by equation ((28.7xA1C)-46.7) Estimated average glucose (eAG) is a calculated value from Hemoglobin A1C and is credit resolution representative of the average blood glucose level in the last 2-3 month period. Normal range: less than 114 mg/dL Performed By: #### A ELY REYES, JULIÁN, MG, GFR, ADIFF, DIMER, CBC, PBNP, TROPHS #### [address] [address] HbA1c (Bld) [Mass fraction] 6.2 % Normal 4.3-6.4 [facility] Comment on above: Performed By: #### A ELY REYES, BMP, MG, GFR, ADIFF, DIMER, CBC, PBNP, TROPHS #### [place] [address] [place], [place] [address] CMPon 02-12-2024 Albumin Level 3.3 G/dL Low 3.5-5.0 [facility] Comment on above: Performed By: #### A ELY REYES, BMP, MG, GFR, ADIFF, DIMER, CBC, PBNP, TROPHS #### [place] [address] Albumin/Globulin [Mass ratio] 0.9 {ratio} Low 1.1-2.5 [facility] Comment on above: Performed By: #### A ELY REYES, BMP, MG, GFR, ADIFF, DIMER, CBC, PBNP, TROPHS #### [place] [address] ALP [Catalytic activity/Vol] 74 U/L Normal 40-135 [facility] Comment on above: Performed By: #### A ELY REYES, BMP, MG, GFR, ADIFF, DIMER, CBC, PBNP, TROPHS #### [place] [address] ALT [Catalytic activity/Vol] 20 U/L Normal 16-63 [facility] Comment on above: Performed By: #### A ELY REYES, BMP, MG, GFR, ADIFF, DIMER, CBC, PBNP, TROPHS #### [place] [address] AST [Catalytic activity/Vol] 13 U/L Normal 10-40 [facility] Comment on above: Performed By: #### A ELY REYES, BMP, MG, GFR, ADIFF, DIMER, CBC, PBNP, TROPHS #### [place] [id number] Bili Total 0.5 mg/dL Normal 0.2-1.0 [facility] Comment on above: Result Comment: Use of this assay is not recommended for patients undergoing treatment with eltrombopag due to the potential for falsely elevated results. Performed By: #### A ELY REYES, BMP, MG, GFR, ADIFF, DIMER, CBC, PBNP, TROPHS #### [place] [address] BUN/Creatinine Ratio 6 ratio Low 7-27 [facility] Comment on above: Performed By: #### A ELY REYES, BMP, MG, GFR, ADIFF, DIMER, CBC, PBNP, TROPHS #### [address] [address] Calcium [Mass/Vol] 8.5 mg/dL Normal 8.4-10.2 [facility] Comment on above: Performed By: #### A LEY REYES, BMP, MG, GFR, ADIFF, DIMER, CBC, PBNP, TROPHS #### [address] [address] Chloride [Moles/Vol] 100 mmol/L Normal 98-107 [facility] Comment on above: Performed By: #### A ELY REYES, BMP, MG, GFR, ADIFF, DIMER, CBC, PBNP, TROPHS #### [address] [address] CO2 [Moles/Vol] 34 mmol/L High 22-29 [facility] Comment on above: Performed By: #### A ELY REYES, BMP, MG, GFR, ADIFF, DIMER, CBC, PBNP, TROPHS #### [address] [address] Creatinine [Mass/Vol] 1.00 mg/dL Normal 0.70-1.30 [facility] Comment on above: Result Comment: Test ing performed on Siemens Dimension EXL analyzer using a modified kinetic Ciera technique. Performed By: #### A EYL REYES, BMP, MG, GFR, ADIFF, DIMER, CBC, PBNP, TROPHS #### [address] [address] Electrolyte Balance 4.0 mEq/L Normal 4.0-15.0 [facility] Comment on above: Performed By: #### A ELY REYES, BMP, MG, GFR, ADIFF, DIMER, CBC, PBNP, TROPHS #### [address] [address] Globulin 3.8 G/dL Normal [facility] Comment on above: Performed By: #### A ELY REYES, BMP, MG, GFR, ADIFF, DIMER, CBC, PBNP, TROPHS #### [address] [address] Glucose [Mass/Vol] 80 mg/dL Normal 70-105 [facility] Comment on above: Performed By: #### A ELY REYES, BMP, MG, GFR, ADIFF, DIMER, CBC, PBNP, TROPHS #### [place] [address] Potassium [Moles/Vol] 4.3 mmol/L Normal 3.5-5.1 [facility] Comment on above: Performed By: #### A ELY REYES, BMP, MG, GFR, ADIFF, DIMER, CBC, PBNP, TROPHS #### [place] [address] Sodium [Moles/Vol] 138 mmol/L Normal 136-145 [facility] Comment on above: Performed By: #### A ELY REYES, BMP, MG, GFR, ADIFF, DIMER, CBC, PBNP, TROPHS #### [place] [address] Total Protein 7.1 G/dL Normal 6.4-8.2 [facility] Comment on above: Performed By: #### A ELY REYES, BMP, MG, GFR, ADIFF, DIMER, CBC, PBNP, TROPHS #### [place] [address] Urea nitrogen [Mass/Vol] 6 mg/dL Low 7-18 [facility] Comment on above: Performed By: #### A ELY REYES, BMP, MG, GFR, ADIFF, DIMER, CBC, PBNP, TROPHS #### [place] [address] LABORATORYOrdered By: SYSTEM SYSTEM on 02-12-2024 Albumin [...] calculated value from Hemoglobin A1C and is credit resolution representative of the average blood glucose level [...] 02-12-2024 Cholesterol [Mass/Vol] 117 mg/dL Normal 0-200 [facility] Comment on above: Result Comment: Chol esterol Reference Interval: Less than 200 Desirable 200-239 Borderline high risk 240 and above High risk Performed By: #### A ELY REYES, BMP, MG, GFR, ADIFF, DIMER, CBC, PBNP, TROPHS #### [address] [address] Cholesterol in HDL [Mass/Vol] 25 mg/dL Low 40-60 [facility] Comment on above: Performed By: #### A ELY REYES, BMP, MG, GFR, ADIFF, DIMER, CBC, PBNP, TROPHS #### [address] [address] Cholesterol in LDL [Mass/Vol] 53 mg/dL Normal 0-130 [facility] Comment on above: Performed By: #### A ELY REYES, BMP, MG, GFR, ADIFF, DIMER, CBC, PBNP, TROPHS #### [address] [address] Triglyceride [Mass/Vol] 196 mg/dL High 0-150 [facility] Comment on above: Result Comment: Trig lyceride Reference Interval: Less than 150 Normal 150-199 Borderline high risk 200-499 High risk 500 or higher Very high risk Performed By: #### A ELY REYES, BMP, MG, GFR, ADIFF, DIMER, CBC, PBNP, TROPHS #### [address] [address] PSAon 02-12-2024 Prostate Specific Antigen 0.25 ng/mL Normal 0.00-4.00 [facility] Comment on above: Performed By: #### A ERIC, MDW, BMP, MG, GFR, ADIFF, DIMER, CBC, PBNP, TROPHS #### [address] [address] .Auto Diffon 02-01-2024 Basophil, Absolute 0.1 10 3/mcL Normal 0.0-0.3 [facility] Comment on above: Performed By: #### A DIFF, TROPHS, GFR, BMP, MDW, CBC, PBNP, ANEU #### [address] [address] Basophils/100 WBC (Bld) 0.8 % Normal 0.0-2.5 [facility] ([place]) Comment on above: Performed By: #### A DIFF, TROPHS, GFR, BMP, MDW, CBC, PBNP, ANEU #### [address] [address] Eosinophil, Absolute 0.1 10 3/mcL Normal 0.0-0.7 [facility] ([place]) Comment on above: Performed By: #### A DIFF, TROPHS, GFR, BMP, MDW, CBC, PBNP, ANEU #### [address] [address] Eosinophils/100 WBC (Bld) 1.2 % Normal 0.0-6.0 [facility] ([place]) Comment on above: Performed By: #### A DIFF, TROPHS, GFR, BMP, MDW, CBC, PBNP, ANEU #### [address] [address] Lymphocyte, Absolute 1.4 10 3/mcL Normal 0.9-4.3 [facility] ([place]) Comment on above: Performed By: #### A DIFF, TROPHS, GFR, BMP, MDW, CBC, PBNP, ANEU #### [address] [address] Lymphocytes/100 WBC (Bld) 19.9 % Low 20.0-40.0 [facility] ([place]) Comment on above: Performed By: #### A DIFF, TROPHS, GFR, BMP, MDW, CBC, PBNP, ANEU #### [address] [address] Monocyte, Absolute 0.7 10 3/mcL Normal 0.1-1.4 [facility] ([place]) Comment on above: Performed By: #### A DIFF, TROPHS, GFR, BMP, MDW, CBC, PBNP, ANEU #### [address] [address] Monocytes/100 WBC (Bld) 9.4 % Normal 2.0-13.0 [facility] ([place]) Comment on above: Performed By: #### A DIFF, TROPHS, GFR, BMP, MDW, CBC, PBNP, ANEU #### [address] [address] Neutrophils/100 WBC (Bld) 68.7 % Normal 50.0-75.0 [facility] ([place]) Comment on above: Performed By: #### A DIFF, TROPHS, GFR, BMP, MDW, CBC, PBNP, ANEU #### [address] [address] .GFRon 02-01-2024 GFR >60 Normal [facility] ([place] Comment on above: Result Comment: GFR [...] GFR, BMP, MDW, CBC, PBNP, ANEU #### [address] [address] GFR Non- >60 Normal [facility] ([place]) Comment on above: Result Comment: GFR [...] GFR, BMP, MDW, CBC, PBNP, ANEU #### [address] [address] .NEUABSon 02-01-2024 Neutrophil, Absolute 4.8 10 3/mcL Normal 2.3-8.1 [facility] ([place]) Comment on above: Performed By: #### A DIFF, TROPHS, GFR, BMP, MDW, CBC, PBNP, ANEU #### [address] [address] APTTon 02-01-2024 aPTT Coag (Bld) [Time] 47.1 s High 25.0-35.0 [facility] ([place]) Comment on above: Result Comment: For Heparin anticoagulation therapy, the recommended therapeutic range is: 54-77 seconds (APTT Correlation with Anti-Xa therapeutic range of 0.3-0.7 units/ml). PLEASE REFERENCE THE PHARMACY PROTOCOL FOR DOSING. Performed By: #### A DIFF, TROPHS, GFR, BMP, MDW, CBC, PBNP, ANEU #### [address] [address] aPTT Coag (Bld) [Time] 46.1 s High 25.0-35.0 [facility] ([place]) Comment on above: Result Comment: For Heparin anticoagulation therapy, the recommended therapeutic range is: 54-77 seconds (APTT Correlation with Anti-Xa therapeutic range of 0.3-0.7 units/ml). PLEASE REFERENCE THE PHARMACY PROTOCOL FOR DOSING. Performed By: #### A DIFF, TROPHS, GFR, BMP, MDW, CBC, PBNP, ANEU #### [address] [address] BMPon 02-01-2024 BUN/Creatinine Ratio 14.8 ratio Normal 10.0-22.0 [facility] ([place]) Comment on above: Performed By: #### A DIFF, TROPHS, GFR, BMP, MDW, CBC, PBNP, ANEU #### [address] [address] Calcium [Mass/Vol] 8.8 mg/dL Normal 8.7-10.4 [facility] ([place]) Comment on above: Performed By: #### A DIFF, TROPHS, GFR, BMP, MDW, CBC, PBNP, ANEU #### [address] [address] Chloride [Moles/Vol] 100 mmol/L Normal 98-110 [facility] ([place]) Comment on above: Performed By: #### A DIFF, TROPHS, GFR, BMP, MDW, CBC, PBNP, ANEU #### [address] [address] CO2 [Moles/Vol] 32 mmol/L Normal 22-32 [facility] ([place]) Comment on above: Performed By: #### A DIFF, TROPHS, GFR, BMP, MDW, CBC, PBNP, ANEU #### [address] [address] Creatinine [Mass/Vol] 1.15 mg/dL Normal 0.60-1.40 [facility] ([place]) Comment on above: Result Comment: Test ing performed on Musiwave analyzer using enzymatic creatinine methodology. Performed By: #### A DIFF, TROPHS, GFR, BMP, MDW, CBC, PBNP, ANEU #### [address] [address] Electrolyte Balance 5.0 mEq/L Normal 4.0-15.0 Count includes the [facility] ([place]) Comment on above: Performed By: #### A DIFF, TROPHS, GFR, BMP, MDW, CBC, PBNP, ANEU #### [address] [address] Glucose [Mass/Vol] 124 mg/dL High 70-110 [facility] ([place]) Comment on above: Performed By: #### A DIFF, TROPHS, GFR, BMP, MDW, CBC, PBNP, ANEU #### [address] [address] Potassium [Moles/Vol] 3.4 mmol/L Low 3.5-5.0 [facility] ([place]) Comment on above: Performed By: #### A DIFF, TROPHS, GFR, BMP, MDW, CBC, PBNP, ANEU #### [address] [address] Sodium [Moles/Vol] 137 mmol/L Normal 136-145 [facility] ([place]) Comment on above: Performed By: #### A DIFF, TROPHS, GFR, BMP, MDW, CBC, PBNP, ANEU #### [address] [address] Urea nitrogen [Mass/Vol] 17.0 mg/dL Normal 8.0-22.0 [facility] ([place]) Comment on above: Performed By: #### A DIFF, TROPHS, GFR, BMP, MDW, CBC, PBNP, ANEU #### [address] [address] CBCon 02-01-2024 Erythrocyte distribution width (RBC) [Ratio] 16.2 % High 11.5-15.5 [facility] ([place]) Comment on above: Performed By: #### A DIFF, TROPHS, GFR, BMP, MDW, CBC, PBNP, ANEU #### [address] [address] Hematocrit (Bld) [Volume fraction] 40.5 % Normal 40.0-52.0 [facility] ([place]) Comment on above: Performed By: #### A DIFF, TROPHS, GFR, BMP, MDW, CBC, PBNP, ANEU #### [address] [address] Hgb 13.0 G/dL Normal 13.0-17.5 [facility] ([place]) Comment on above: Performed By: #### A DIFF, TROPHS, GFR, BMP, MDW, CBC, PBNP, ANEU #### [address] [address] MCH (RBC) [Entitic mass] 26.0 pg Low 27.0-33.0 [facility] ([place]) Comment on above: Performed By: #### A DIFF, TROPHS, GFR, BMP, MDW, CBC, PBNP, ANEU #### [address] [address] MCHC 32.2 G/dL Normal 32.0-36.0 [facility] ([place]) Comment on above: Performed By: #### A DIFF, TROPHS, GFR, BMP, MDW, CBC, PBNP, ANEU #### [address] [address] MCV (RBC) [Entitic vol] 80.6 fL Low 81.0-100.0 A [facility] ([place]) Comment on above: Performed By: #### A DIFF, TROPHS, GFR, BMP, MDW, CBC, PBNP, ANEU #### [place] [address] Platelet 161 10 3/mcL Normal 150-450 [facility] ([place]) Comment on above: Performed By: #### A DIFF, TROPHS, GFR, BMP, MDW, CBC, PBNP, ANEU #### [address] [address] Platelet mean volume (Bld) [Entitic vol] 6.8 fL Normal 6.4-10.5 [facility] ([place]) Comment on above: Performed By: #### A DIFF, TROPHS, GFR, BMP, MDW, CBC, PBNP, ANEU #### [facility] [address] [place], [place] [address] RBC 5.02 10 6/mcL Normal 4.50-6.00 [facility] ([place]) Comment on above: Performed By: #### A DIFF, TROPHS, GFR, BMP, MDW, CBC, PBNP, ANEU #### [facility] [address] [place], [place] [address] WBC 6.9 10 3/mcL Normal 4.5-10.8 [facility] ([place]) Comment on above: Performed By: #### A DIFF, TROPHS, GFR, BMP, MDW, CBC, PBNP, ANEU #### [place] [address] [place], [place] [address] LABORATORYOrdered By: SYSTEM SYSTEM on 02-01-2024 aPTT Coag (Bld) [Time] 47.1 s High 25.0 - 35.0 seconds AH [facility] Comment on above: Interpretive Data: F [...] 32 mmol/L Normal 22 - 32 mEq/L AH ADM SS Creatinine [Mass/Vol] 1.15 mg/dL Normal 0.60 - 1.40 mg/dL ADM SS Comment on above: Interpretive Data: T esting performed on AMKAI CH analyzer using enzymatic creatinine methodology. Electrolyte [...] 80.6 fL Low 81.0 - 100.0 fL Workflow [...] 02-01-2024 Magnesium [Mass/Vol] 2.2 mg/dL Normal 1.6-2.4 [facility] ([place]) Comment on above: Performed By: #### A DIFF, TROPHS, GFR, BMP, MDW, CBC, PBNP, ANEU #### [address] [address] .Auto Diffon 01-31-2024 Basophil, Absolute 0.1 10 3/mcL Normal 0.0-0.3 [facility] ([place]) Comment on above: Performed By: #### A DIFF, TROPHS, GFR, BMP, MDW, CBC, PBNP, ANEU #### [address] [address] Basophils/100 WBC (Bld) 1.0 % Normal 0.0-2.5 A [facility] ([place]) Comment on above: Performed By: #### A DIFF, TROPHS, GFR, BMP, MDW, CBC, PBNP, ANEU #### [address] [address] Eosinophil, Absolute 0.1 10 3/mcL Normal 0.0-0.7 [facility] ([place]) Comment on above: Performed By: #### A DIFF, TROPHS, GFR, BMP, MDW, CBC, PBNP, ANEU #### [address] [address] Eosinophils/100 WBC (Bld) 1.1 % Normal 0.0-6.0 [facility] ([place]) Comment on above: Performed By: #### A DIFF, TROPHS, GFR, BMP, MDW, CBC, PBNP, ANEU #### [address] [address] Lymphocyte, Absolute 3.0 10 3/mcL Normal 0.9-4.3 [facility] ([place]) Comment on above: Performed By: #### A DIFF, TROPHS, GFR, BMP, MDW, CBC, PBNP, ANEU #### [address] [address] Lymphocytes/100 WBC (Bld) 22.7 % Normal 20.0-40.0 [facility] ([place]) Comment on above: Performed By: #### A DIFF, TROPHS, GFR, BMP, MDW, CBC, PBNP, ANEU #### [address] [address] Monocyte, Absolute 1.4 10 3/mcL Normal 0.1-1.4 [facility] ([place]) Comment on above: Performed By: #### A DIFF, TROPHS, GFR, BMP, MDW, CBC, PBNP, ANEU #### [address] [address] Monocytes/100 WBC (Bld) 11.0 % Normal 2.0-13.0 [facility] ([place]) Comment on above: Performed By: #### A DIFF, TROPHS, GFR, BMP, MDW, CBC, PBNP, ANEU #### [address] [address] Neutrophils/100 WBC (Bld) 64.2 % Normal 50.0-75.0 [facility] ([place]) Comment on above: Performed By: #### A DIFF, TROPHS, GFR, BMP, MDW, CBC, PBNP, ANEU #### [address] [address] .GFRon 01-31-2024 GFR 46 ml/min/1.73sqm Normal [facility] ([place]) Comment on above: Result Comment: GFR [...] GFR, BMP, MDW, CBC, PBNP, ANEU #### [address] [address] GFR Non- 38 ml/min/1.73sqm Normal [facility] ([place]) Comment on above: Result Comment: GFR [...] GFR, BMP, MDW, CBC, PBNP, ANEU #### [address] [address] .NEUABSon 01-31-2024 Neutrophil, Absolute 8.5 10 3/mcL High 2.3-8.1 [facility] ([place]) Comment on above: Performed By: #### A DIFF, TROPHS, GFR, BMP, MDW, CBC, PBNP, ANEU #### [address] [address] APTTon 01-31-2024 aPTT Coag (Bld) [Time] 34.5 s Normal 25.0-35.0 [facility] ([place]) Comment on above: Result Comment: For Heparin anticoagulation therapy, the recommended therapeutic range is: 54-77 seconds (APTT Correlation with Anti-Xa therapeutic range of 0.3-0.7 units/ml). PLEASE REFERENCE THE PHARMACY PROTOCOL FOR DOSING. Performed By: #### A DIFF, TROPHS, GFR, BMP, MDW, CBC, PBNP, ANEU #### [address] [address] aPTT Coag (Bld) [Time] 33.9 s Normal 25.0-35.0 [facility] ([place]) Comment on above: Result Comment: For Heparin anticoagulation therapy, the recommended therapeutic range is: 54-77 seconds (APTT Correlation with Anti-Xa therapeutic range of 0.3-0.7 units/ml). PLEASE REFERENCE THE PHARMACY PROTOCOL FOR DOSING. Performed By: #### A DIFF, TROPHS, GFR, BMP, MDW, CBC, PBNP, ANEU #### [address] [address] aPTT Coag (Bld) [Time] 26.2 s Normal 25.0-35.0 [facility] ([place]) Comment on above: Result Comment: For Heparin anticoagulation therapy, the recommended therapeutic range is: 54-77 seconds (APTT Correlation with Anti-Xa therapeutic range of 0.3-0.7 units/ml). PLEASE REFERENCE THE PHARMACY PROTOCOL FOR DOSING. Performed By: #### A DIFF, TROPHS, GFR, BMP, MDW, CBC, PBNP, ANEU #### [address] [address] CAIONon 01-31-2024 Calcium Ionized 1.07 mmol/L Low 1.12-1.32 [facility] ([place]) Comment on above: Performed By: #### T ROPHS, CMP, CAION, LAC, CBC, ADIFF, GFR, PHOS, MG, ANEU #### [address] [address] CBCon 01-31-2024 Erythrocyte distribution width (RBC) [Ratio] 16.3 % High 11.5-15.5 [facility] ([place]) Comment on above: Performed By: #### A DIFF, TROPHS, GFR, BMP, MDW, CBC, PBNP, ANEU #### [address] [address] Hematocrit (Bld) [Volume fraction] 42.8 % Normal 40.0-52.0 [facility] ([place]) Comment on above: Performed By: #### A DIFF, TROPHS, GFR, BMP, MDW, CBC, PBNP, ANEU #### [address] [address] Hgb 14.0 G/dL Normal 13.0-17.5 [facility] ([place]) Comment on above: Performed By: #### A DIFF, TROPHS, GFR, BMP, MDW, CBC, PBNP, ANEU #### [address] [address] MCH (RBC) [Entitic mass] 25.9 pg Low 27.0-33.0 [facility] ([place]) Comment on above: Performed By: #### A DIFF, TROPHS, GFR, BMP, MDW, CBC, PBNP, ANEU #### [address] [address] MCHC 32.6 G/dL Normal 32.0-36.0 [facility] ([place]) Comment on above: Performed By: #### A DIFF, TROPHS, GFR, BMP, MDW, CBC, PBNP, ANEU #### [address] [address] MCV (RBC) [Entitic vol] 79.5 fL Low 81.0-100.0 A [facility] ([place]) Comment on above: Performed By: #### A DIFF, TROPHS, GFR, BMP, MDW, CBC, PBNP, ANEU #### [address] [address] Platelet 270 10 3/mcL Normal 150-450 [facility] ([place]) Comment on above: Performed By: #### A DIFF, TROPHS, GFR, BMP, MDW, CBC, PBNP, ANEU #### [address] [address] Platelet mean volume (Bld) [Entitic vol] 7.0 fL Normal 6.4-10.5 [facility] ([place]) Comment on above: Performed By: #### A DIFF, TROPHS, GFR, BMP, MDW, CBC, PBNP, ANEU #### [address] [address] RBC 5.39 10 6/mcL Normal 4.50-6.00 [facility] ([place]) Comment on above: Performed By: #### A DIFF, TROPHS, GFR, BMP, MDW, CBC, PBNP, ANEU #### [address] [address] WBC 13.2 10 3/mcL High 4.5-10.8 [facility] ([place]) Comment on above: Performed By: #### A DIFF, TROPHS, GFR, BMP, MDW, CBC, PBNP, ANEU #### [address] [address] CMPon 01-31-2024 Albumin Level 3.0 G/dL Low 3.2-4.8 [facility] ([place]) Comment on above: Performed By: #### A DIFF, TROPHS, GFR, BMP, MDW, CBC, PBNP, ANEU #### [address] [address] Albumin/Globulin [Mass ratio] 0.8 {ratio} Low 0.9-1.6 [facility] ([place]) Comment on above: Performed By: #### A DIFF, TROPHS, GFR, BMP, MDW, CBC, PBNP, ANEU #### [address] [address] ALP [Catalytic activity/Vol] 77 U/L Normal 38-126 [facility] ([place]) Comment on above: Performed By: #### A DIFF, TROPHS, GFR, BMP, MDW, CBC, PBNP, ANEU #### [address] [address] ALT/SGPT <8 Low 12-55 [facility] ([place]) Comment on above: Performed By: #### A DIFF, TROPHS, GFR, BMP, MDW, CBC, PBNP, ANEU #### [address] [address] AST [Catalytic activity/Vol] 12 U/L Normal 8-34 [facility] ([place]) Comment on above: Performed By: #### A DIFF, TROPHS, GFR, BMP, MDW, CBC, PBNP, ANEU #### [address] [address] Bili Total 0.40 mg/dL Normal 0.20-1.20 [facility] ([place]) Comment on above: Result Comment: Use of this assay is not recommended for patients undergoing treatment with eltrombopag due to the potential for falsely elevated results. Performed By: #### A DIFF, TROPHS, GFR, BMP, MDW, CBC, PBNP, ANEU #### [address] [address] BUN/Creatinine Ratio 11.2 ratio Normal 10.0-22.0 [facility] ([place]) Comment on above: Performed By: #### A DIFF, TROPHS, GFR, BMP, MDW, CBC, PBNP, ANEU #### [address] [address] Calcium [Mass/Vol] 8.8 mg/dL Normal 8.7-10.4 [facility] ([place]) Comment on above: Performed By: #### A DIFF, TROPHS, GFR, BMP, MDW, CBC, PBNP, ANEU #### [address] [address] Chloride [Moles/Vol] 100 mmol/L Normal 98-110 [facility] ([place]) Comment on above: Performed By: #### A DIFF, TROPHS, GFR, BMP, MDW, CBC, PBNP, ANEU #### [address] [address] CO2 [Moles/Vol] 29 mmol/L Normal 22-32 [facility] ([place]) Comment on above: Performed By: #### A DIFF, TROPHS, GFR, BMP, MDW, CBC, PBNP, ANEU #### [address] [address] Creatinine [Mass/Vol] 1.87 mg/dL High 0.60-1.40 [facility] ([place]) Comment on above: Result Comment: Test ing performed on Musiwave analyzer using enzymatic creatinine methodology. Performed By: #### A DIFF, TROPHS, GFR, BMP, MDW, CBC, PBNP, ANEU #### [address] [address] Electrolyte Balance 8.0 mEq/L Normal 4.0-15.0 Count includes the [facility] ([place]) Comment on above: Performed By: #### A DIFF, TROPHS, GFR, BMP, MDW, CBC, PBNP, ANEU #### [address] [address] Globulin 3.7 G/dL Normal 1.5-3.8 [facility] ([place]) Comment on above: Performed By: #### A DIFF, TROPHS, GFR, BMP, MDW, CBC, PBNP, ANEU #### [address] [address] Glucose [Mass/Vol] 133 mg/dL High 70-110 [facility] ([place]) Comment on above: Performed By: #### A DIFF, TROPHS, GFR, BMP, MDW, CBC, PBNP, ANEU #### [address] [address] Potassium [Moles/Vol] 3.6 mmol/L Normal 3.5-5.0 [facility] ([place]) Comment on above: Performed By: #### A DIFF, TROPHS, GFR, BMP, MDW, CBC, PBNP, ANEU #### [address] [address] Sodium [Moles/Vol] 137 mmol/L Normal 136-145 [facility] ([place]) Comment on above: Performed By: #### A DIFF, TROPHS, GFR, BMP, MDW, CBC, PBNP, ANEU #### [address] [address] Total Protein 6.7 G/dL Normal 5.7-8.2 [facility] ([place]) Comment on above: Result Comment: No te - New Reference Range in effect 19 Performed By: #### A DIFF, TROPHS, GFR, BMP, MDW, CBC, PBNP, ANEU #### [address] [address] Urea nitrogen [Mass/Vol] 21.0 mg/dL Normal 8.0-22.0 [facility] ([place]) Comment on above: Performed By: #### A DIFF, TROPHS, GFR, BMP, MDW, CBC, PBNP, ANEU #### [address] [address] CVFLURVon 01-31-2024 FLU A PCR Negative Normal Negative [facility] ([place]) Comment on above: Result Comment: [place] [id number] Performed By: #### A DIFF, TROPHS, GFR, BMP, MDW, CBC, PBNP, ANEU #### [place] [address] FLU B PCR Negative Normal Negative [facility] ([place]) Comment on above: Result Comment: Note s [id number] Performed By: #### A DIFF, TROPHS, GFR, BMP, MDW, CBC, PBNP, ANEU #### [place] [address] RSV PCR Negative Normal Negative [facility] ([place]) Comment on above: Result Comment: Note s [id number] Performed By: #### A DIFF, TROPHS, GFR, BMP, MDW, CBC, PBNP, ANEU #### [place] [address] SARS-CoV-2 (COVID-19) RNA ROSE+probe Ql (Unsp spec) Negative Normal Negative [facility] ([place]) Comment on above: Result Comment: Note s [id number] This test has been authorized by FDA [...] BMP, MDW, CBC, PBNP, ANEU #### Larry [address] [address] LABORATORYOrdered By: SYSTEM SYSTEM on 01-31-2024 aPTT [...] above: Interpretive Data: T esting performed on Musiwave analyzer using enzymatic creatinine methodology. Electrolyte Balance [...] High 9.0 - 1 4.4 seconds [facility] Comment on above: Interpretive Data: E ffective 12/11/07, Protime results may be affected by some antibiotics (i.e. Ciprofloxacin, Azithromycin, Bactrim) which may potentiate the action of oral anticoagulants, with further increases in Protime/INR. PT International Ratio 1.3 ratio Invalid Interpretation Code [facility] Comment on above: Interpretive Data: Baljinder linn [employer] (CHEST, 1992, 102:[id number]) [...] ng/L Male: 0-54 ng/L Testing performed on [employer] analyzer using direct chemiluminescent technology. Urea nitrogen [Mass/Vol] 21.0 mg/dL Normal 8.0 - 22.0 mg/dL AH ADM SS Urea nitrogen/Creatinine [Mass ratio] 11.2 ratio Normal 10.0 - 22.0 ratio AH ADM SS WBC (Bld) [#/Vol] 13.2 103/mcL High 4.5 - 10.8 10^3/mcL AH Workflow SS LABORATORYOrdered By: Yoanna Coleman on 01-31-2024 Blood Glucose Testing Reason Routine (01/31/24 7:30 AM) [facility] Glucose [Mass/Vol] 146 mg/dL High 70 - 110 mg/dL [facility] LABORATORYOrdered By: Jacqueline Ospina on 01-31-2024 FLUAV RNA ROSE+probe Ql (Resp) Negative 15 (01/31/24 4:30 AM) Normal Negative AH Auto [facility]iro[facility]Sero SS Comment on above: Result Comment: [place] [id number] FLUBV RNA ROSE+probe Ql (Resp) Negative 16 (01/31/24 4:30 AM) Normal Negative AH Auto [facility]/Sero SS Comment on above: Result Comment: [place] s [id number] RSV PCR Negative 17 (01/31/24 4:30 AM) Normal Negative AH Auto Viro/Sero SS Comment on above: Result Comment: Note s [id number] SARS-CoV-2 (COVID-19) RNA ROSE+probe Ql (Resp) Negative 13, 14 (01/31/24 4:30 AM) Normal Negative AH Auto Viro/Sero SS Comment on above: Result Comment: [place] s [id number] Interpretive Data: T his test has been [...] 1.07 mmol/L Low 1.12 - 1.32 mmol/L [facility] Comm LABORATORYOrdered By: Roshan Galarza on 01-31-2024 Blood Glucose Testing Reason Routine (01/31/24 2:48 AM) [facility] Glucose [Mass/Vol] 153 mg/dL High 70 - 110 mg/dL [facility] LACon 01-31-2024 Lactic Acid Lvl 1.2 mmol/L Normal 0.5-2.2 [facility] ([place]) Comment on above: Result Comment: Spec imen hemolyzed. Results may be affected. Performed By: #### A DIFF, TROPHS, GFR, BMP, MDW, CBC, PBNP, ANEU #### [address] [address] MGon 01-31-2024 Magnesium [Mass/Vol] 1.5 mg/dL Low 1.6-2.4 [facility] ([place]) Comment on above: Performed By: #### A DIFF, TROPHS, GFR, BMP, MDW, CBC, PBNP, ANEU #### [address] [address] No Panel Informationon 01-30 Microscopic examination of blood, culture Culture has been received in lab and is no growth to date. Routine cultures are held for 5 days. [facility]2024 Phosphate [Mass/Vol] 3.1 mg/dL Normal 2.4-5.1 [facility] ([place]) Comment on above: Result Comment: No te - New Reference Range in effect 19 Performed By: #### A DIFF, TROPHS, GFR, BMP, MDW, CBC, PBNP, ANEU #### [address] [address] PROon 01-31-2024 INR Coag (PPP) [Relative time] 1.3 {INR} Normal [facility] ([place]) Comment on above: Result Comment: [employer] (CHEST, 1992, [id number]) recommended therapeutic range for oral anticoagulant therapy is: LOW RISK: Prophylaxis of venous thrombosis INR: 2.0-3.0 Treatment of pulmonary embolism 2.0-3.0 Prevention of systemic embolism 2.0-3.0 HIGH RISK: Mechanical prosthetic valves 2.5-3.5 Performed By: #### A DIFF, TROPHS, GFR, BMP, MDW, CBC, PBNP, ANEU #### [address] [address] PT Coag (PPP) [Time] 14.7 s High 9.0-14.4 [facility] ([place]) Comment on above: Result Comment: Effe ctive 12/11/07, Protime results may be affected by some antibiotics (i.e. Ciprofloxacin, Azithromycin, Bactrim) which may potentiate the action of oral anticoagulants, with further increases in Protime/INR. Performed By: #### A DIFF, TROPHS, GFR, BMP, MDW, CBC, PBNP, ANEU #### [address] [address] [facility] 01-31-2024 High Sensitivity Troponin I 4 ng/L Normal 0-54 [facility] ([place]) Comment on above: Result Comment: High Sensitive Troponin I Reference Ranges: Female: 0-34 ng/L Male: 0-54 ng/L Testing performed on [employer] analyzer using direct chemiluminescent technology. Performed By: #### A DIFF, TROPHS, GFR, BMP, MDW, CBC, PBNP, ANEU #### [address] [address] .Auto Diffon 01-30-2024 Basophil, Absolute 0.2 10 3/mcL Normal 0.0-0.2 [facility] ([place]) Comment on above: Performed By: #### A DIFF, TROPHS, GFR, BMP, MDW, CBC, PBNP, ANEU #### [address] [address] Basophils/100 WBC (Bld) 1.1 % Normal 0.0-2.5 A [facility] ([place]) Comment on above: Performed By: #### A DIFF, TROPHS, GFR, BMP, MDW, CBC, PBNP, ANEU #### [address] [address] Eosinophil, Absolute 0.1 10 3/mcL Normal 0.0-0.4 [facility] ([place]) Comment on above: Performed By: #### A DIFF, TROPHS, GFR, BMP, MDW, CBC, PBNP, ANEU #### [address] [address] Eosinophils/100 WBC (Bld) 0.7 % Normal 0.0-7.0 [facility] ([place]) Comment on above: Performed By: #### A DIFF, TROPHS, GFR, BMP, MDW, CBC, PBNP, ANEU #### [address] [address] Lymphocyte, Absolute 2.8 10 3/mcL Normal 0.8-3.9 [facility] ([place]) Comment on above: Performed By: #### A DIFF, TROPHS, GFR, BMP, MDW, CBC, PBNP, ANEU #### [address] [address] Lymphocytes/100 WBC (Bld) 20.2 % Normal 10.0-50.0 [facility] ([place]) Comment on above: Performed By: #### A DIFF, TROPHS, GFR, BMP, MDW, CBC, PBNP, ANEU #### [address] [address] Monocyte, Absolute 1.7 10 3/mcL High 0.2-1.0 [facility] ([place]) Comment on above: Performed By: #### A DIFF, TROPHS, GFR, BMP, MDW, CBC, PBNP, ANEU #### [address] [address] Monocytes/100 WBC (Bld) 12.2 % Normal 1.7-13.0 A [facility] ([place]) Comment on above: Performed By: #### A DIFF, TROPHS, GFR, BMP, MDW, CBC, PBNP, ANEU #### [address] [address] Neutrophils/100 WBC (Bld) 65.8 % Normal 37.0-80.0 [facility] ([place]) Comment on above: Performed By: #### A DIFF, TROPHS, GFR, BMP, MDW, CBC, PBNP, ANEU #### [address] [address] .GFRon 01-30-2024 GFR 38 ml/min/1.73sqm Normal [facility] ([place]) Comment on above: Result Comment: GFR [...] GFR, BMP, MDW, CBC, PBNP, ANEU #### [address] [address] GFR Non- 31 ml/min/1.73sqm Normal [facility] ([place]) Comment on above: Result Comment: GFR [...] GFR, BMP, MDW, CBC, PBNP, ANEU #### [address] [address] .MDWon 01-30-2024 Monocyte Distribution Width 21.35 High 0.00-20.00 [facility] ([place]) Comment on above: Result Comment: For adults in ED, MDW>20.0 may be associated with a higher risk of sepsis during the first 12hrs of hospital admission Performed By: #### A DIFF, TROPHS, GFR, BMP, MDW, CBC, PBNP, ANEU #### [address] [address] .NEUABSon 01-30-2024 Neutrophil, Absolute 9.2 10 3/mcL High 2.9-6.2 [facility] ([place]) Comment on above: Performed By: #### A DIFF, TROPHS, GFR, BMP, MDW, CBC, PBNP, ANEU #### [address] [address] .Urinalysis Microscopic (AO) on 01-30-2024 UA RBC None Seen Normal None Seen [facility] ([place]) Comment on above: Performed By: #### A DIFF, TROPHS, GFR, BMP, MDW, CBC, PBNP, ANEU #### [address] [address] UA Squam Epithelial None Seen Normal None Seen Count includes the [facility] ([place]) Comment on above: Performed By: #### A DIFF, TROPHS, GFR, BMP, MDW, CBC, PBNP, ANEU #### [address] [address] UA WBC 0-5 Abnormal None Seen [facility] ([place]) Comment on above: Performed By: #### A DIFF, TROPHS, GFR, BMP, MDW, CBC, PBNP, ANEU #### [address] [address] BGon 01-30-2024 Base excess Calc (Bld) [Moles/Vol] 4.3 mmol/L Normal [facility] ([place]) Comment on above: Performed By: #### A DIFF, TROPHS, GFR, BMP, MDW, CBC, PBNP, ANEU #### [address] [address] CO2 [Moles/Vol] 29.8 mmol/L Normal 22.0-30.0 [facility] ([place]) Comment on above: Performed By: #### A DIFF, TROPHS, GFR, BMP, MDW, CBC, PBNP, ANEU #### [address] [address] HCO3 (Bld) [Moles/Vol] 28.5 mmol/L Normal 21.0-29.0 [facility] [place] [facility] [facility] ([place] Comment on above: Performed By: #### A DIFF, TROPHS, GFR, BMP, MDW, CBC, PBNP, ANEU #### [address] [address] Oxygen (Bld) [Partial pressure] 51.0 mm[Hg] Low 74.0-108.0 [facility] ([place]) Comment on above: Performed By: #### A DIFF, TROPHS, GFR, BMP, MDW, CBC, PBNP, ANEU #### [address] [address] Oxygen saturation in Blood 88.8 % Low 92.0-96.0 [facility] ([place]) Comment on above: Performed By: #### A DIFF, TROPHS, GFR, BMP, MDW, CBC, PBNP, ANEU #### [address] [address] pCO2 41.0 mmHg Normal 32.0-46.0 [facility] ([place]) Comment on above: Performed By: #### A DIFF, TROPHS, GFR, BMP, MDW, CBC, PBNP, ANEU #### [address] [address] pH (Bld) 7.460 [pH] Normal 7.380-7.460 [facility] ([place]) Comment on above: Performed By: #### A DIFF, TROPHS, GFR, BMP, MDW, CBC, PBNP, ANEU #### [address] [address] BMPon 01-30-2024 BUN/Creatinine Ratio 8 ratio Normal 7-27 [facility] ([place]) Comment on above: Performed By: #### A DIFF, TROPHS, GFR, BMP, MDW, CBC, PBNP, ANEU #### [address] [address] Calcium [Mass/Vol] 8.8 mg/dL Normal 8.4-10.2 [facility] ([place]) Comment on above: Performed By: #### A DIFF, TROPHS, GFR, BMP, MDW, CBC, PBNP, ANEU #### [address] [address] Chloride [Moles/Vol] 97 mmol/L Low 98-107 [facility] ([place]) Comment on above: Performed By: #### A DIFF, TROPHS, GFR, BMP, MDW, CBC, PBNP, ANEU #### [address] [address] CO2 [Moles/Vol] 31 mmol/L High 22-29 [facility] ([place]) Comment on above: Performed By: #### A DIFF, TROPHS, GFR, BMP, MDW, CBC, PBNP, ANEU #### [address] [address] Creatinine [Mass/Vol] 2.22 mg/dL High 0.70-1.30 [facility] ([place]) Comment on above: Result Comment: Test ing performed on Siemens Dimension EXL analyzer using a modified kinetic Ciera technique. Performed By: #### A DIFF, TROPHS, GFR, BMP, MDW, CBC, PBNP, ANEU #### [address] [address] Electrolyte Balance 6.0 mEq/L Normal 4.0-15.0 Count includes the [facility] ([place]) Comment on above: Performed By: #### A DIFF, TROPHS, GFR, BMP, MDW, CBC, PBNP, ANEU #### [address] [address] Glucose [Mass/Vol] 112 mg/dL High 70-105 [facility] ([place]) Comment on above: Performed By: #### A DIFF, TROPHS, GFR, BMP, MDW, CBC, PBNP, ANEU #### [address] [address] Potassium [Moles/Vol] 3.7 mmol/L Normal 3.5-5.1 [facility] ([place]) Comment on above: Performed By: #### A DIFF, TROPHS, GFR, BMP, MDW, CBC, PBNP, ANEU #### [address] [address] Sodium [Moles/Vol] 134 mmol/L Low 136-145 [facility] ([place]) Comment on above: Performed By: #### A DIFF, TROPHS, GFR, BMP, MDW, CBC, PBNP, ANEU #### [address] [address] Urea nitrogen [Mass/Vol] 17 mg/dL Normal 7-18 [facility] ([place]) Comment on above: Performed By: #### A DIFF, TROPHS, GFR, BMP, MDW, CBC, PBNP, ANEU #### [address] [address] CBCon 01-30-2024 Erythrocyte distribution width (RBC) [Ratio] 16.5 % High 11.5-14.5 [facility] ([place]) Comment on above: Performed By: #### A DIFF, TROPHS, GFR, BMP, MDW, CBC, PBNP, ANEU #### [address] [address] Hematocrit (Bld) [Volume fraction] 45.3 % Normal 42.0-52.0 [facility] ([place]) Comment on above: Performed By: #### A DIFF, TROPHS, GFR, BMP, MDW, CBC, PBNP, ANEU #### [address] [address] Hgb 14.9 G/dL Normal 14.0-18.0 [facility] ([place]) Comment on above: Performed By: #### A DIFF, TROPHS, GFR, BMP, MDW, CBC, PBNP, ANEU #### [place] [address] MCH (RBC) [Entitic mass] 26.6 pg Low 27.0-31.2 [facility] ([place]) Comment on above: Performed By: #### A DIFF, TROPHS, GFR, BMP, MDW, CBC, PBNP, ANEU #### [place] [address] MCHC 33.0 G/dL Normal 31.8-35.4 [facility] ([place]) Comment on above: Performed By: #### A DIFF, TROPHS, GFR, BMP, MDW, CBC, PBNP, ANEU #### [place] [address] MCV (RBC) [Entitic vol] 80.7 fL Normal 80.0-94.0 [facility] ([place]) Comment on above: Performed By: #### A DIFF, TROPHS, GFR, BMP, MDW, CBC, PBNP, ANEU #### [place] [id number] Platelet 263 10 3/mcL Normal 130-400 [facility] ([place]) Comment on above: Performed By: #### A DIFF, TROPHS, GFR, BMP, MDW, CBC, PBNP, ANEU #### [address] [address] Platelet mean volume (Bld) [Entitic vol] 6.8 fL Low 7.4-10.4 [facility] ([place]) Comment on above: Performed By: #### A DIFF, TROPHS, GFR, BMP, MDW, CBC, PBNP, ANEU #### [address] [address] RBC 5.61 10 6/mcL Normal 4.04-6.13 [facility] ([place]) Comment on above: Performed By: #### A DIFF, TROPHS, GFR, BMP, MDW, CBC, PBNP, ANEU #### [address] [address] WBC 14.0 10 3/mcL High 4.6-10.8 [facility] ([place]) Comment on above: Performed By: #### A DIFF, TROPHS, GFR, BMP, MDW, CBC, PBNP, ANEU #### [address] [address] [address] HEAD OR BRAIN W/O CONTRAS Ton [...] 01/30/2024 10:16:46 PM Ordering Provider: SAMY JONES [facility] ([place]) LABORATORYOrdered By: Jil Morales on 01-30-2024 Appearance [...] ng/L Male: 0-76 ng/L Testing performed on [employer] using a homogeneous sandwich chemiluminescent immunoassay based on ISpeak technology. Lactate [Moles/Vol] 1.0 mmol/L Normal 0.4 [...] ng/L Male: 0-76 ng/L Testing performed on [employer] using a homogeneous sandwich chemiluminescent immunoassay based on ISpeak technology. Urea nitrogen [Mass/Vol] 17 mg/dL Normal [...] Lvl 1.0 mmol/L Normal 0.4-2.0 [facility] ([place]) Comment on above: Performed By: #### L AC #### [address] [address] No Panel Informationon 01-29 Microscopic examination of blood, culture Culture has been received in lab and is no growth to date. Routine cultures are held for 5 days. [facility] PBNPon 01-30-2024 Natriuretic peptide B (Bld) [Mass/Vol] 1822 pg/mL High 0-125 [facility] ([place]) Comment on above: Result Comment: NT-p roBNP results of less than 300 pg/mL effectively rules out acute congestive heart failure with 99% negative predictive value. Performed By: #### A DIFF, TROPHS, GFR, BMP, MDW, CBC, PBNP, ANEU #### [place] [address] [place], [place] [address] TROPHSon 01-30-2024 High Sensitivity Troponin I 7 ng/L Normal 0-76 [facility] ([place]) Comment on above: Result Comment: High Sensitive Troponin I Reference Ranges: Female: 0-51 ng/L Male: 0-76 ng/L Testing performed on [employer] using a homogeneous sandwich chemiluminescent immunoassay based on ISpeak technology. Performed By: #### A DIFF, TROPHS, GFR, BMP, MDW, CBC, PBNP, ANEU #### [address] [address] High Sensitivity Troponin I 8 ng/L Normal 0-76 [facility] ([place]) Comment on above: Result Comment: High Sensitive Troponin I Reference Ranges: Female: 0-51 ng/L Male: 0-76 ng/L Testing performed on Dimension EXL using a homogeneous sandwich chemiluminescent immunoassay based on ISpeak technology. Performed By: #### A DIFF, TROPHS, GFR, BMP, MDW, CBC, PBNP, ANEU #### [address] [address] UAon 01-30-2024 Color (U) Yellow Normal [facility] ([place]) Comment on above: Performed By: #### A DIFF, TROPHS, GFR, BMP, MDW, CBC, PBNP, ANEU #### [address] [address] Glucose (U) [Mass/Vol] Negative Normal Negative [facility] ([place]) Comment on above: Performed By: #### A DIFF, TROPHS, GFR, BMP, MDW, CBC, PBNP, ANEU #### [address] [address] Ketones Ql (U) Negative Normal Negative [facility] ([place]) Comment on above: Performed By: #### A DIFF, TROPHS, GFR, BMP, MDW, CBC, PBNP, ANEU #### [address] [address] UA Appear Clear Normal Clear [facility] ([place]) Comment on above: Performed By: #### A DIFF, TROPHS, GFR, BMP, MDW, CBC, PBNP, ANEU #### [address] [address] UA Bili Small Abnormal Negative [facility] ([place]) Comment on above: Performed By: #### A DIFF, TROPHS, GFR, BMP, MDW, CBC, PBNP, ANEU #### [address] [address] UA Blood Trace Abnormal Negative [facility] ([place]) Comment on above: Performed By: #### A DIFF, TROPHS, GFR, BMP, MDW, CBC, PBNP, ANEU #### [address] [address] UA Leuk Est Trace Abnormal Negative [facility] ([place]) Comment on above: Performed By: #### A DIFF, TROPHS, GFR, BMP, MDW, CBC, PBNP, ANEU #### [address] [address] UA Nitrite Negative Normal Negative [facility] ([place]) Comment on above: Performed By: #### A DIFF, TROPHS, GFR, BMP, MDW, CBC, PBNP, ANEU #### [address] [address] UA pH 6.0 Normal 5.0 - 8.0 [facility] ([place]) Comment on above: Performed By: #### A DIFF, TROPHS, GFR, BMP, MDW, CBC, PBNP, ANEU #### [address] [address] UA Protein 100 mg/dL Abnormal Negative [facility] ([place]) Comment on above: Performed By: #### A DIFF, TROPHS, GFR, BMP, MDW, CBC, PBNP, ANEU #### [address] [address] UA Spec Grav 1.025 Normal 1.015-1.025 [facility] ([place]) Comment on above: Performed By: #### A DIFF, TROPHS, GFR, BMP, MDW, CBC, PBNP, ANEU #### [address] [address] UA Specimen Type Void Normal [facility] ([place]) Comment on above: Performed By: #### A DIFF, TROPHS, GFR, BMP, MDW, CBC, PBNP, ANEU #### [address] [address] UA Urobilinogen 1.0 E.U./dL Normal 0.2-1.0 [facility] ([place]) Comment on above: Performed By: #### A DIFF, TROPHS, GFR, BMP, W, CBC, PBNP, ANEU #### Larry [address] [address] XR CHEST 1 VIEWon 01-30-2024 XR CHEST [...] 9:28:12 PM Ordering Provider: SAMY JONES Normal [facility] ([place]) .GFRon 08-08-2023 GFR Non- 105 ml/min/1.73sqm Normal [facility] ([place]) Comment on above: Result Comment: [...] GFR, BMP, MDW, CBC, PBNP, ANEU #### [address] [address] GFR 127 ml/min/1.73sqm Normal [facility] ([place]) Comment on above: Result Comment: GFR [...] GFR, BMP, MDW, CBC, PBNP, ANEU #### [address] [address] A1Con 08-08-2023 HbA1c (Bld) [Mass fraction] 6.7 % High 4.3-6.4 [facility] ([place]) Comment on above: Performed By: #### A DIFF, TROPHS, GFR, BMP, MDW, CBC, PBNP, ANEU #### [address] [address] CMPon 08-08-2023 Albumin Level 3.4 G/dL Low 3.5-5.0 [facility] ([place]) Comment on above: Performed By: #### A DIFF, TROPHS, GFR, BMP, MDW, CBC, PBNP, ANEU #### [address] [address] Albumin/Globulin [Mass ratio] 0.9 {ratio} Low 1.1-2.5 [facility] ([place]) Comment on above: Performed By: #### A DIFF, TROPHS, GFR, BMP, MDW, CBC, PBNP, ANEU #### [address] [place] [address] ALP [Catalytic activity/Vol] 87 U/L Normal 40-135 [facility] ([place]) Comment on above: Performed By: #### A DIFF, TROPHS, GFR, BMP, MDW, CBC, PBNP, ANEU #### [address] [address] ALT [Catalytic activity/Vol] 19 U/L Normal 16-63 [facility] ([place]) Comment on above: Performed By: #### A DIFF, TROPHS, GFR, BMP, MDW, CBC, PBNP, ANEU #### [address] [address] AST [Catalytic activity/Vol] 15 U/L Normal 10-40 [facility] ([place]) Comment on above: Performed By: #### A DIFF, TROPHS, GFR, BMP, MDW, CBC, PBNP, ANEU #### [address] [address] Bili Total 0.5 mg/dL Normal 0.2-1.0 [facility] ([place]) Comment on above: Result Comment: Use of this assay is not recommended for patients undergoing treatment with eltrombopag due to the potential for falsely elevated results. Performed By: #### A DIFF, TROPHS, GFR, BMP, MDW, CBC, PBNP, ANEU #### [address] [address] BUN/Creatinine Ratio 14 ratio Normal 7-27 [facility] ([place]) Comment on above: Performed By: #### A DIFF, TROPHS, GFR, BMP, MDW, CBC, PBNP, ANEU #### [address] [address] Calcium [Mass/Vol] 8.7 mg/dL Normal 8.4-10.2 [facility] ([place]) Comment on above: Performed By: #### A DIFF, TROPHS, GFR, BMP, MDW, CBC, PBNP, ANEU #### [address] [address] Chloride [Moles/Vol] 100 mmol/L Normal 98-107 [facility] ([place]) Comment on above: Performed By: #### A DIFF, TROPHS, GFR, BMP, MDW, CBC, PBNP, ANEU #### [address] [address] CO2 [Moles/Vol] 34 mmol/L High 22-29 [facility] ([place]) Comment on above: Performed By: #### A DIFF, TROPHS, GFR, BMP, MDW, CBC, PBNP, ANEU #### [address] [address] Creatinine [Mass/Vol] 0.78 mg/dL Normal 0.70-1.30 [facility] ([place]) Comment on above: Performed By: #### A DIFF, TROPHS, GFR, BMP, MDW, CBC, PBNP, ANEU #### [address] [address] Electrolyte Balance 6.0 mEq/L Normal 4.0-15.0 Count includes the [facility] ([place]) Comment on above: Performed By: #### A DIFF, TROPHS, GFR, BMP, MDW, CBC, PBNP, ANEU #### [address] [address] Globulin 3.8 G/dL Normal [facility] ([place]) Comment on above: Performed By: #### A DIFF, TROPHS, GFR, BMP, MDW, CBC, PBNP, ANEU #### [address] [address] Glucose [Mass/Vol] 121 mg/dL High 70-105 [facility] ([place]) Comment on above: Performed By: #### A DIFF, TROPHS, GFR, BMP, MDW, CBC, PBNP, ANEU #### [address] [address] Potassium [Moles/Vol] 4.2 mmol/L Normal 3.5-5.1 [facility] ([place]) Comment on above: Performed By: #### A DIFF, TROPHS, GFR, BMP, MDW, CBC, PBNP, ANEU #### [address] [address] Sodium [Moles/Vol] 140 mmol/L Normal 136-145 [facility] ([place]) Comment on above: Performed By: #### A DIFF, TROPHS, GFR, BMP, MDW, CBC, PBNP, ANEU #### [address] [address] Total Protein 7.2 G/dL Normal 6.4-8.2 [facility] ([place]) Comment on above: Performed By: #### A DIFF, TROPHS, GFR, BMP, MDW, CBC, PBNP, ANEU #### [address] [address] Urea nitrogen [Mass/Vol] 11 mg/dL Normal 7-18 [facility] ([place]) Comment on above: Performed By: #### A DIFF, TROPHS, GFR, BMP, MDW, CBC, PBNP, ANEU #### [address] [address] LABORATORYOrdered By: Jr Fontaine on 08-08-2023 Albumin DL <= 20 mg/L (U) [Mass/Vol] 378 mcg/dL Invalid Interpretation Code AO ADM SS Albumin/Creatinine DL <= 20 mg/L (U) [Mass ratio] 12 mcg/mg Normal 0 - 30 mcg/mg AO ADM SS Creatinine (U) [Mass/Vol] 30.5 mg/dL Low 39.0 - 259.0 mg/dL AO ADM SS LIPIDon 08-08-2023 Cholesterol [Mass/Vol] 156 mg/dL Normal 0-200 [facility] ([place]) Comment on above: Result Comment: Chol esterol Reference Interval: Less than 200 Desirable 200-239 Borderline high risk 240 and above High risk Performed By: #### A DIFF, TROPHS, GFR, BMP, MDW, CBC, PBNP, ANEU #### [address] [address] Cholesterol in HDL [Mass/Vol] 28 mg/dL Low 40-60 [facility] ([place]) Comment on above: Performed By: #### A DIFF, TROPHS, GFR, BMP, MDW, CBC, PBNP, ANEU #### [address] [address] Cholesterol in LDL [Mass/Vol] 93 mg/dL Normal 0-130 [facility] ([place]) Comment on above: Performed By: #### A DIFF, TROPHS, GFR, BMP, MDW, CBC, PBNP, ANEU #### [address] [address] Triglyceride [Mass/Vol] 175 mg/dL High 0-150 A [facility] ([place]) Comment on above: Result Comment: Trig lyceride Reference Interval: Less than 150 Normal 150-199 Borderline high risk 200-499 High risk 500 or higher Very high risk Performed By: #### A DIFF, TROPHS, GFR, BMP, MDW, CBC, PBNP, ANEU #### [address] [address] MALBRon 08-08-2023 U Creatinine 30.5 mg/dL Low 39.0-259.0 [facility] ([place]) Comment on above: Performed By: #### A DIFF, TROPHS, GFR, BMP, MDW, CBC, PBNP, ANEU #### [address] [address] U Microalb 378 mcg/dL Normal [facility] ([place]) Comment on above: Performed By: #### A DIFF, TROPHS, GFR, BMP, MDW, CBC, PBNP, ANEU #### [address] [address] U Ratio Alb/Cre 12 mcg/mg Normal 0-30 [facility] ([place]) Comment on above: Performed By: #### A DIFF, TROPHS, GFR, BMP, MDW, CBC, PBNP, ANEU #### [address] [address] CVFLURVon 06-13-2023 FLU A PCR Negative Normal Negative [facility] ([place]) Comment on above: Performed By: #### A DIFF, TROPHS, GFR, BMP, MDW, CBC, PBNP, ANEU #### [address] [place] [address] FLU B PCR Negative Normal Negative [facility] ([place]) Comment on above: Performed By: #### A DIFF, TROPHS, GFR, BMP, MDW, CBC, PBNP, ANEU #### [address] [address] RSV PCR Negative Normal Negative [facility] ([place]) Comment on above: Performed By: #### A DIFF, TROPHS, GFR, BMP, MDW, CBC, PBNP, ANEU #### [place] [address] SARS-CoV-2 (COVID-19) RNA ROSE+probe Ql (Unsp spec) Negative Normal Negative [facility] ([place]) Comment on above: Result Comment: This [...] GFR, BMP, MDW, CBC, PBNP, ANEU #### [place] [id number] LABORATORYOrdered By: Giovana Fischer on 06-13-2023 FLUAV [...] 06/13/2023 12:39:50 AM Ordering Provider: DEMI Kate [facility] ([place]) .Auto Diffon 06-09-2023 Basophil, Absolute 0.1 10 3/mcL Normal 0.0-0.3 [facility] ([place]) Comment on above: Performed By: #### A DIFF, TROPHS, GFR, BMP, MDW, CBC, PBNP, ANEU #### [address] [address] Basophils/100 WBC (Bld) 0.8 % Normal 0.0-2.5 A [facility] ([place]) Comment on above: Performed By: #### A DIFF, TROPHS, GFR, BMP, MDW, CBC, PBNP, ANEU #### [address] [address] Eosinophil, Absolute 0.1 10 3/mcL Normal 0.0-0.7 [facility] ([place]) Comment on above: Performed By: #### A DIFF, TROPHS, GFR, BMP, MDW, CBC, PBNP, ANEU #### [address] [address] Eosinophils/100 WBC (Bld) 2.0 % Normal 0.0-6.0 [facility] ([place]) Comment on above: Performed By: #### A DIFF, TROPHS, GFR, BMP, MDW, CBC, PBNP, ANEU #### [address] [address] Lymphocyte, Absolute 1.0 10 3/mcL Normal 0.9-4.3 [facility] ([place]) Comment on above: Performed By: #### A DIFF, TROPHS, GFR, BMP, MDW, CBC, PBNP, ANEU #### [address] [address] Lymphocytes/100 WBC (Bld) 15.5 % Low 20.0-40.0 [facility] ([place]) Comment on above: Performed By: #### A DIFF, TROPHS, GFR, BMP, MDW, CBC, PBNP, ANEU #### [address] [address] Monocyte, Absolute 0.7 10 3/mcL Normal 0.1-1.4 [facility] ([place]) Comment on above: Performed By: #### A DIFF, TROPHS, GFR, BMP, MDW, CBC, PBNP, ANEU #### [address] [address] Monocytes/100 WBC (Bld) 11.1 % Normal 2.0-13.0 A [facility] ([place]) Comment on above: Performed By: #### A DIFF, TROPHS, GFR, BMP, MDW, CBC, PBNP, ANEU #### [address] [address] Neutrophils/100 WBC (Bld) 70.6 % Normal 50.0-75.0 [facility] ([place]) Comment on above: Performed By: #### A DIFF, TROPHS, GFR, BMP, MDW, CBC, PBNP, ANEU #### [address] [address] .GFRon 06-09-2023 GFR Non- >60 Normal [facility] ([place]) Comment on above: Result Comment: GFR [...] GFR, BMP, MDW, CBC, PBNP, ANEU #### [address] [address] GFR >60 Normal [facility] ([place]) Comment on above: Result Comment: GFR [...] GFR, BMP, MDW, CBC, PBNP, ANEU #### [address] [address] .NEUABSon 06-09-2023 Neutrophil, Absolute 4.7 10 3/mcL Normal 2.3-8.1 [facility] ([place]) Comment on above: Performed By: #### A DIFF, TROPHS, GFR, BMP, MDW, CBC, PBNP, ANEU #### [address] [address] BMPon 06-09-2023 BUN/Creatinine Ratio 11.8 ratio Normal 10.0-22.0 [facility] ([place]) Comment on above: Performed By: #### A DIFF, TROPHS, GFR, BMP, MDW, CBC, PBNP, ANEU #### [address] [address] Calcium [Mass/Vol] 9.0 mg/dL Normal 8.7-10.4 [facility] ([place]) Comment on above: Performed By: #### A DIFF, TROPHS, GFR, BMP, MDW, CBC, PBNP, ANEU #### [address] [address] Chloride [Moles/Vol] 102 mmol/L Normal 98-110 [facility] ([place]) Comment on above: Performed By: #### A DIFF, TROPHS, GFR, BMP, MDW, CBC, PBNP, ANEU #### [address] [address] CO2 [Moles/Vol] 35 mmol/L High 22-32 [facility] ([place]) Comment on above: Performed By: #### A DIFF, TROPHS, GFR, BMP, MDW, CBC, PBNP, ANEU #### [address] [address] Creatinine [Mass/Vol] 0.85 mg/dL Normal 0.60-1.40 [facility] ([place]) Comment on above: Performed By: #### A DIFF, TROPHS, GFR, BMP, MDW, CBC, PBNP, ANEU #### [address] [address] Electrolyte Balance 0.0 mEq/L Low 4.0-15.0 Count includes the [facility] ([place]) Comment on above: Performed By: #### A DIFF, TROPHS, GFR, BMP, MDW, CBC, PBNP, ANEU #### [address] [address] Glucose [Mass/Vol] 146 mg/dL High 70-110 [facility] ([place]) Comment on above: Performed By: #### A DIFF, TROPHS, GFR, BMP, MDW, CBC, PBNP, ANEU #### [address] [address] Potassium [Moles/Vol] 4.8 mmol/L Normal 3.5-5.0 [facility] ([place]) Comment on above: Performed By: #### A DIFF, TROPHS, GFR, BMP, MDW, CBC, PBNP, ANEU #### [address] [address] Sodium [Moles/Vol] 137 mmol/L Normal 136-145 [facility] ([place]) Comment on above: Performed By: #### A DIFF, TROPHS, GFR, BMP, MDW, CBC, PBNP, ANEU #### [address] [address] Urea nitrogen [Mass/Vol] 10.0 mg/dL Normal 8.0-22.0 [facility] ([place]) Comment on above: Result Comment: Spec imen hemolyzed. Results may be falsely elevated. Performed By: #### A DIFF, TROPHS, GFR, BMP, MDW, CBC, PBNP, ANEU #### [address] [address] CBCon 06-09-2023 Erythrocyte distribution width (RBC) [Ratio] 13.3 % Normal 11.5-15.5 [facility] ([place]) Comment on above: Performed By: #### A DIFF, TROPHS, GFR, BMP, MDW, CBC, PBNP, ANEU #### [address] [address] Hematocrit (Bld) [Volume fraction] 45.9 % Normal 40.0-52.0 [facility] ([place]) Comment on above: Performed By: #### A DIFF, TROPHS, GFR, BMP, MDW, CBC, PBNP, ANEU #### [place] [id number] Hgb 15.6 G/dL Normal 13.0-17.5 [facility] ([place]) Comment on above: Performed By: #### A DIFF, TROPHS, GFR, BMP, MDW, CBC, PBNP, ANEU #### [address] [address] MCH (RBC) [Entitic mass] 29.0 pg Normal 27.0-33.0 [facility] ([place]) Comment on above: Performed By: #### A DIFF, TROPHS, GFR, BMP, MDW, CBC, PBNP, ANEU #### [address] [address] MCHC 33.9 G/dL Normal 32.0-36.0 [facility] ([place]) Comment on above: Performed By: #### A DIFF, TROPHS, GFR, BMP, MDW, CBC, PBNP, ANEU #### [address] [address] MCV (RBC) [Entitic vol] 85.5 fL Normal 81.0-100.0 A [facility] ([place]) Comment on above: Performed By: #### A DIFF, TROPHS, GFR, BMP, MDW, CBC, PBNP, ANEU #### [address] [address] Platelet 174 10 3/mcL Normal 150-450 [facility] ([place]) Comment on above: Performed By: #### A DIFF, TROPHS, GFR, BMP, MDW, CBC, PBNP, ANEU #### [address] [address] Platelet mean volume (Bld) [Entitic vol] 7.5 fL Normal 6.4-10.5 [facility] ([place]) Comment on above: Performed By: #### A DIFF, TROPHS, GFR, BMP, MDW, CBC, PBNP, ANEU #### [address] [address] RBC 5.37 10 6/mcL Normal 4.50-6.00 [facility] ([place]) Comment on above: Performed By: #### A DIFF, TROPHS, GFR, BMP, MDW, CBC, PBNP, ANEU #### [address] [address] WBC 6.6 10 3/mcL Normal 4.5-10.8 [facility] ([place]) Comment on above: Performed By: #### A DIFF, TROPHS, GFR, BMP, MDW, CBC, PBNP, ANEU #### [address] [address] LABORATORYOrdered By: Adenike Swain on 06-09-2023 Blood Glucose Testing Reason Routine (06/09/23 4:18 PM) [facility] Glucose [Mass/Vol] 114 mg/dL High 70 - 110 mg/dL [facility] LABORATORYOrdered By: Cris Jang on 06-09-2023 Blood Glucose Testing Reason Routine (06/09/23 7:51 AM) [facility] Glucose [Mass/Vol] 142 mg/dL High 70 - 110 mg/dL [facility] LABORATORYOrdered By: SYSTEM SYSTEM on 06-09-2023 [...] 06-09-2023 Magnesium [Mass/Vol] 2.1 mg/dL Normal 1.6-2.4 [facility] ([place]) Comment on above: Performed By: #### A DIFF, TROPHS, GFR, BMP, MDW, CBC, PBNP, ANEU #### [address] [id number] .Auto Diffon 06-08-2023 Basophil, Absolute 0.1 10 3/mcL Normal 0.0-0.3 [facility] ([place]) Comment on above: Performed By: #### A DIFF, TROPHS, GFR, BMP, MDW, CBC, PBNP, ANEU #### [address] [address] Basophils/100 WBC (Bld) 0.7 % Normal 0.0-2.5 [facility] ([place]) Comment on above: Performed By: #### A DIFF, TROPHS, GFR, BMP, MDW, CBC, PBNP, ANEU #### [address] [address] Eosinophil, Absolute 0.1 10 3/mcL Normal 0.0-0.7 [facility] ([place]) Comment on above: Performed By: #### A DIFF, TROPHS, GFR, BMP, MDW, CBC, PBNP, ANEU #### [address] [address] Eosinophils/100 WBC (Bld) 1.9 % Normal 0.0-6.0 [facility] ([place]) Comment on above: Performed By: #### A DIFF, TROPHS, GFR, BMP, MDW, CBC, PBNP, ANEU #### [address] [address] Lymphocyte, Absolute 1.3 10 3/mcL Normal 0.9-4.3 [facility] ([place]) Comment on above: Performed By: #### A DIFF, TROPHS, GFR, BMP, MDW, CBC, PBNP, ANEU #### [address] [address] Lymphocytes/100 WBC (Bld) 16.1 % Low 20.0-40.0 [facility] ([place]) Comment on above: Performed By: #### A DIFF, TROPHS, GFR, BMP, MDW, CBC, PBNP, ANEU #### [address] [address] Monocyte, Absolute 0.8 10 3/mcL Normal 0.1-1.4 [facility] ([place]) Comment on above: Performed By: #### A DIFF, TROPHS, GFR, BMP, MDW, CBC, PBNP, ANEU #### [address] [address] Monocytes/100 WBC (Bld) 9.9 % Normal 2.0-13.0 [facility] ([place]) Comment on above: Performed By: #### A DIFF, TROPHS, GFR, BMP, MDW, CBC, PBNP, ANEU #### [address] [address] Neutrophils/100 WBC (Bld) 71.4 % Normal 50.0-75.0 [facility] ([place]) Comment on above: Performed By: #### A DIFF, TROPHS, GFR, BMP, MDW, CBC, PBNP, ANEU #### [address] [address] .GFRon 06-08-2023 GFR >60 Normal [facility] ([place]) Comment on above: Result Comment: GFR [...] GFR, BMP, MDW, CBC, PBNP, ANEU #### [address] [address] GFR Non- >60 Normal [facility] ([place]) Comment on above: Result Comment: GFR [...] GFR, BMP, MDW, CBC, PBNP, ANEU #### [address] [address] .NEUABSon 06-08-2023 Neutrophil, Absolute 5.7 10 3/mcL Normal 2.3-8.1 [facility] ([place]) Comment on above: Performed By: #### A DIFF, TROPHS, GFR, BMP, MDW, CBC, PBNP, ANEU #### [address] [address] BMPon 06-08-2023 BUN/Creatinine Ratio 10.7 ratio Normal 10.0-22.0 [facility] ([place]) Comment on above: Performed By: #### A DIFF, TROPHS, GFR, BMP, MDW, CBC, PBNP, ANEU #### [address] [address] Calcium [Mass/Vol] 8.9 mg/dL Normal 8.7-10.4 [facility] ([place]) Comment on above: Performed By: #### A DIFF, TROPHS, GFR, BMP, MDW, CBC, PBNP, ANEU #### [address] [address] Chloride [Moles/Vol] 100 mmol/L Normal 98-110 [facility] ([place]) Comment on above: Performed By: #### A DIFF, TROPHS, GFR, BMP, MDW, CBC, PBNP, ANEU #### [address] [address] CO2 [Moles/Vol] 36 mmol/L High 22-32 [facility] ([place]) Comment on above: Performed By: #### A DIFF, TROPHS, GFR, BMP, MDW, CBC, PBNP, ANEU #### [address] [address] Creatinine [Mass/Vol] 0.75 mg/dL Normal 0.60-1.40 [facility] ([place]) Comment on above: Performed By: #### A DIFF, TROPHS, GFR, BMP, MDW, CBC, PBNP, ANEU #### [address] [address] Electrolyte Balance 1.0 mEq/L Low 4.0-15.0 Count includes the [facility] ([place]) Comment on above: Performed By: #### A DIFF, TROPHS, GFR, BMP, MDW, CBC, PBNP, ANEU #### [address] [address] Glucose [Mass/Vol] 160 mg/dL High 70-110 [facility] ([place]) Comment on above: Performed By: #### A DIFF, TROPHS, GFR, BMP, MDW, CBC, PBNP, ANEU #### [address] [address] Potassium [Moles/Vol] 3.4 mmol/L Low 3.5-5.0 [facility] ([place]) Comment on above: Result Comment: Spec imen slightly hemolyzed. Performed By: #### A DIFF, TROPHS, GFR, BMP, MDW, CBC, PBNP, ANEU #### [address] [address] Sodium [Moles/Vol] 137 mmol/L Normal 136-145 [facility] ([place]) Comment on above: Performed By: #### A DIFF, TROPHS, GFR, BMP, MDW, CBC, PBNP, ANEU #### [address] [address] Urea nitrogen [Mass/Vol] 8.0 mg/dL Normal 8.0-22.0 [facility] ([place]) Comment on above: Performed By: #### A DIFF, TROPHS, GFR, BMP, MDW, CBC, PBNP, ANEU #### [address] [address] CBCon 06-08-2023 Erythrocyte distribution width (RBC) [Ratio] 13.1 % Normal 11.5-15.5 [facility] ([place]) Comment on above: Performed By: #### A DIFF, TROPHS, GFR, BMP, MDW, CBC, PBNP, ANEU #### [address] [address] Hematocrit (Bld) [Volume fraction] 45.7 % Normal 40.0-52.0 [facility] ([place]) Comment on above: Performed By: #### A DIFF, TROPHS, GFR, BMP, MDW, CBC, PBNP, ANEU #### [place] [address] Hgb 15.6 G/dL Normal 13.0-17.5 [facility] ([place]) Comment on above: Performed By: #### A DIFF, TROPHS, GFR, BMP, MDW, CBC, PBNP, ANEU #### [place] [address] MCH (RBC) [Entitic mass] 29.1 pg Normal 27.0-33.0 [facility] ([place]) Comment on above: Performed By: #### A DIFF, TROPHS, GFR, BMP, MDW, CBC, PBNP, ANEU #### [place] [address] MCHC 34.3 G/dL Normal 32.0-36.0 [facility] ([place]) Comment on above: Performed By: #### A DIFF, TROPHS, GFR, BMP, MDW, CBC, PBNP, ANEU #### [place] [address] MCV (RBC) [Entitic vol] 85.0 fL Normal 81.0-100.0 A [facility] ([place]) Comment on above: Performed By: #### A DIFF, TROPHS, GFR, BMP, MDW, CBC, PBNP, ANEU #### [place] [address] Platelet 200 10 3/mcL Normal 150-450 [facility] ([place]) Comment on above: Performed By: #### A DIFF, TROPHS, GFR, BMP, MDW, CBC, PBNP, ANEU #### [place] [address] Platelet mean volume (Bld) [Entitic vol] 7.5 fL Normal 6.4-10.5 [facility] ([place]) Comment on above: Performed By: #### A DIFF, TROPHS, GFR, BMP, MDW, CBC, PBNP, ANEU #### [place] [address] RBC 5.37 10 6/mcL Normal 4.50-6.00 [facility] ([place]) Comment on above: Performed By: #### A DIFF, TROPHS, GFR, BMP, MDW, CBC, PBNP, ANEU #### [facility] [address] [place], [place] [address] WBC 7.9 10 3/mcL Normal 4.5-10.8 [facility] ([place]) Comment on above: Performed By: #### A DIFF, TROPHS, GFR, BMP, MDW, CBC, PBNP, ANEU #### [address] [place], [place] [address] LABORATORYOrdered By: Adenike Swain on 06-08-2023 Blood Glucose Testing Reason Routine (06/08/23 9:18 PM) [facility] Glucose [Mass/Vol] 173 mg/dL High 70 - 110 mg/dL [facility] LABORATORYOrdered By: SYSTEM SYSTEM on 06-08-2023 [...] (S/P/Bld) [Vol rate/Area] ml/min/1.73sqm Invalid Interpretation Code [facility] Comment on above: Interpretive Data: GFR [...] (S/P/Bld) [Vol rate/Area] ml/min/1.73sqm Invalid Interpretation Code [facility] Comment on above: Interpretive Data: GFR [...] 06-08-2023 Magnesium [Mass/Vol] 2.1 mg/dL Normal 1.6-2.4 [facility] ([place]) Comment on above: Performed By: #### A DIFF, TROPHS, GFR, BMP, MDW, CBC, PBNP, ANEU #### [address] [address] .Auto Diffon 06-07-2023 Basophil, Absolute 0.1 10 3/mcL Normal 0.0-0.3 [facility] ([place]) Comment on above: Performed By: #### A DIFF, TROPHS, GFR, BMP, MDW, CBC, PBNP, ANEU #### [address] [address] Basophils/100 WBC (Bld) 0.6 % Normal 0.0-2.5 A [facility] ([place]) Comment on above: Performed By: #### A DIFF, TROPHS, GFR, BMP, MDW, CBC, PBNP, ANEU #### [address] [address] Eosinophil, Absolute 0.2 10 3/mcL Normal 0.0-0.7 [facility] ([place]) Comment on above: Performed By: #### A DIFF, TROPHS, GFR, BMP, MDW, CBC, PBNP, ANEU #### [address] [address] Eosinophils/100 WBC (Bld) 1.6 % Normal 0.0-6.0 [facility] ([place]) Comment on above: Performed By: #### A DIFF, TROPHS, GFR, BMP, MDW, CBC, PBNP, ANEU #### [address] [address] Lymphocyte, Absolute 1.4 10 3/mcL Normal 0.9-4.3 [facility] ([place]) Comment on above: Performed By: #### A DIFF, TROPHS, GFR, BMP, MDW, CBC, PBNP, ANEU #### [address] [address] Lymphocytes/100 WBC (Bld) 14.0 % Low 20.0-40.0 [facility] ([place]) Comment on above: Performed By: #### A DIFF, TROPHS, GFR, BMP, MDW, CBC, PBNP, ANEU #### [address] [address] Monocyte, Absolute 0.6 10 3/mcL Normal 0.1-1.4 [facility] ([place]) Comment on above: Performed By: #### A DIFF, TROPHS, GFR, BMP, MDW, CBC, PBNP, ANEU #### [address] [address] Monocytes/100 WBC (Bld) 6.4 % Normal 2.0-13.0 A [facility] ([place]) Comment on above: Performed By: #### A DIFF, TROPHS, GFR, BMP, MDW, CBC, PBNP, ANEU #### [address] [address] Neutrophils/100 WBC (Bld) 77.4 % High 50.0-75.0 [facility] ([place]) Comment on above: Performed By: #### A DIFF, TROPHS, GFR, BMP, MDW, CBC, PBNP, ANEU #### [address] [address] .GFRon 06-07-2023 GFR >60 Normal [facility] ([place]) Comment on above: Result Comment: GFR [...] GFR, BMP, MDW, CBC, PBNP, ANEU #### [address] [address] GFR Non- >60 Normal [facility] ([place]) Comment on above: Result Comment: GFR [...] GFR, BMP, MDW, CBC, PBNP, ANEU #### [address] [address] .NEUABSon 06-07-2023 Neutrophil, Absolute 7.7 10 3/mcL Normal 2.3-8.1 [facility] ([place]) Comment on above: Performed By: #### A DIFF, TROPHS, GFR, BMP, MDW, CBC, PBNP, ANEU #### [place] [address] CBCon 06-07-2023 Erythrocyte distribution width (RBC) [Ratio] 14.0 % Normal 11.5-15.5 [facility] ([place]) Comment on above: Performed By: #### A DIFF, TROPHS, GFR, BMP, MDW, CBC, PBNP, ANEU #### [address] [address] Hematocrit (Bld) [Volume fraction] 47.6 % Normal 40.0-52.0 [facility] ([place]) Comment on above: Performed By: #### A DIFF, TROPHS, GFR, BMP, MDW, CBC, PBNP, ANEU #### [address] [address] Hgb 16.3 G/dL Normal 13.0-17.5 [facility] ([place]) Comment on above: Performed By: #### A DIFF, TROPHS, GFR, BMP, MDW, CBC, PBNP, ANEU #### [address] [address] MCH (RBC) [Entitic mass] 29.1 pg Normal 27.0-33.0 [facility] ([place]) Comment on above: Performed By: #### A DIFF, TROPHS, GFR, BMP, MDW, CBC, PBNP, ANEU #### [address] [address] MCHC 34.2 G/dL Normal 32.0-36.0 [facility] ([place]) Comment on above: Performed By: #### A DIFF, TROPHS, GFR, BMP, MDW, CBC, PBNP, ANEU #### [place] [address] MCV (RBC) [Entitic vol] 84.9 fL Normal 81.0-100.0 [facility] ([place]) Comment on above: Performed By: #### A DIFF, TROPHS, GFR, BMP, MDW, CBC, PBNP, ANEU #### [address] [address] Platelet 228 10 3/mcL Normal 150-450 [facility] ([place]) Comment on above: Performed By: #### A DIFF, TROPHS, GFR, BMP, MDW, CBC, PBNP, ANEU #### [address] [address] Platelet mean volume (Bld) [Entitic vol] 8.0 fL Normal 6.4-10.5 [facility] ([place]) Comment on above: Performed By: #### A DIFF, TROPHS, GFR, BMP, MDW, CBC, PBNP, ANEU #### [place] [address] RBC 5.61 10 6/mcL Normal 4.50-6.00 [facility] ([place]) Comment on above: Performed By: #### A DIFF, TROPHS, GFR, BMP, MDW, CBC, PBNP, ANEU #### [place] [id number] WBC 9.9 10 3/mcL Normal 4.5-10.8 [facility] ([place]) Comment on above: Performed By: #### A DIFF, TROPHS, GFR, BMP, MDW, CBC, PBNP, ANEU #### [address] [address] CMPon 06-07-2023 Albumin Level 3.3 G/dL Normal 3.2-4.8 [facility] ([place]) Comment on above: Order Comment: hemol yzed. needs redrawn Performed By: #### A DIFF, TROPHS, GFR, BMP, MDW, CBC, PBNP, ANEU #### [address] [address] Albumin/Globulin [Mass ratio] 0.9 {ratio} Normal 0.9-1.6 [facility] ([place]) Comment on above: Order Comment: hemol yzed. needs redrawn Performed By: #### A DIFF, TROPHS, GFR, BMP, MDW, CBC, PBNP, ANEU #### [address] [address] ALP [Catalytic activity/Vol] 93 U/L Normal 38-126 [facility] ([place]) Comment on above: Order Comment: hemol yzed. needs redrawn Performed By: #### A DIFF, TROPHS, GFR, BMP, MDW, CBC, PBNP, ANEU #### [address] [address] ALT [Catalytic activity/Vol] 13 U/L Normal 12-55 [facility] ([place]) Comment on above: Order Comment: hemol yzed. needs redrawn Performed By: #### A DIFF, TROPHS, GFR, BMP, MDW, CBC, PBNP, ANEU #### [address] [address] AST [Catalytic activity/Vol] 13 U/L Normal 8-34 [facility] ([place]) Comment on above: Order Comment: hemol yzed. needs redrawn Performed By: #### A DIFF, TROPHS, GFR, BMP, MDW, CBC, PBNP, ANEU #### [address] [address] Bili Total 0.30 mg/dL Normal 0.20-1.20 [facility] ([place]) Comment on above: Order Comment: hemol yzed. needs redrawn Result Comment: Use of this assay is not recommended for patients undergoing treatment with eltrombopag due to the potential for falsely elevated results. Performed By: #### A DIFF, TROPHS, GFR, BMP, MDW, CBC, PBNP, ANEU #### [address] [address] BUN/Creatinine Ratio 10.8 ratio Normal 10.0-22.0 [facility] ([place]) Comment on above: Order Comment: hemol yzed. needs redrawn Performed By: #### A DIFF, TROPHS, GFR, BMP, MDW, CBC, PBNP, ANEU #### [address] [address] Calcium [Mass/Vol] 8.8 mg/dL Normal 8.7-10.4 [facility] ([place]) Comment on above: Order Comment: hemol yzed. needs redrawn Performed By: #### A DIFF, TROPHS, GFR, BMP, MDW, CBC, PBNP, ANEU #### [address] [address] Chloride [Moles/Vol] 97 mmol/L Low 98-110 [facility] ([place]) Comment on above: Order Comment: hemol yzed. needs redrawn Performed By: #### A DIFF, TROPHS, GFR, BMP, MDW, CBC, PBNP, ANEU #### [address] [address] CO2 [Moles/Vol] 37 mmol/L High 22-32 [facility] ([place]) Comment on above: Order Comment: hemol yzed. needs redrawn Performed By: #### A DIFF, TROPHS, GFR, BMP, MDW, CBC, PBNP, ANEU #### [address] [address] Creatinine [Mass/Vol] 0.93 mg/dL Normal 0.60-1.40 [facility] ([place]) Comment on above: Order Comment: hemol yzed. needs redrawn Performed By: #### A DIFF, TROPHS, GFR, BMP, MDW, CBC, PBNP, ANEU #### [address] [address] Electrolyte Balance 3.0 mEq/L Low 4.0-15.0 Count includes the [facility] ([place]) Comment on above: Order Comment: hemol yzed. needs redrawn Performed By: #### A DIFF, TROPHS, GFR, BMP, MDW, CBC, PBNP, ANEU #### [address] [address] Globulin 3.6 G/dL Normal 1.5-3.8 [facility] ([place]) Comment on above: Order Comment: hemol yzed. needs redrawn Performed By: #### A DIFF, TROPHS, GFR, BMP, MDW, CBC, PBNP, ANEU #### [address] [address] Glucose [Mass/Vol] 209 mg/dL High 70-110 [facility] ([place]) Comment on above: Order Comment: hemol yzed. needs redrawn Performed By: #### A DIFF, TROPHS, GFR, BMP, MDW, CBC, PBNP, ANEU #### [address] [address] Potassium [Moles/Vol] 3.6 mmol/L Normal 3.5-5.0 [facility] ([place]) Comment on above: Order Comment: hemol yzed. needs redrawn Result Comment: Spec imen slightly hemolyzed. Performed By: #### A DIFF, TROPHS, GFR, BMP, MDW, CBC, PBNP, ANEU #### [address] [address] Sodium [Moles/Vol] 137 mmol/L Normal 136-145 [facility] ([place]) Comment on above: Order Comment: hemol yzed. needs redrawn Performed By: #### A DIFF, TROPHS, GFR, BMP, MDW, CBC, PBNP, ANEU #### [address] [address] Total Protein 6.9 G/dL Normal 5.7-8.2 [facility] ([place]) Comment on above: Order Comment: hemol yzed. needs redrawn Result Comment: No te - New Reference Range in effect 19 Performed By: #### A DIFF, TROPHS, GFR, BMP, MDW, CBC, PBNP, ANEU #### [place] [address] [place], [place] [address] Urea nitrogen [Mass/Vol] 10.0 mg/dL Normal 8.0-22.0 [facility] ([place]) Comment on above: Order Comment: hemol yzed. needs redrawn Performed By: #### A DIFF, TROPHS, GFR, BMP, MDW, CBC, PBNP, ANEU #### [address] [address] LABORATORYOrdered By: SYSTEM SYSTEM on 06-07-2023 Albumin [...] (S/P/Bld) [Vol rate/Area] ml/min/1.73sqm Invalid Interpretation Code [facility] Comment on above: Interpretive Data: GFR [...] Normal 0.0 - 2.5 % Workflow SS Eosinophils (Bld) [#/Vol] 0.2 103/mcL Normal 0.0 - 0.7 10^3/mcL Workflow SS Eosinophils/100 WBC (Bld) 1.6 % Normal 0.0 - 6.0 % Workflow SS Erythrocyte distribution width (RBC) [Ratio] 14.0 % Normal 11.5 - 15.5 % Workflow SS Hematocrit (Bld) [Volume fraction] 47.6 % Normal 40.0 - 52.0 % Workflow SS Hemoglobin (Bld) [Mass/Vol] 16.3 G/dL Normal 13.0 - 17.5 G/dL Workflow SS Lymphocytes (Bld) [#/Vol] 1.4 103/mcL [...] 06-07-2023 Magnesium [Mass/Vol] 1.7 mg/dL Normal 1.6-2.4 [facility] ([place]) Comment on above: Performed By: #### A DIFF, TROPHS, GFR, BMP, MDW, CBC, PBNP, ANEU #### [address] [address] XR CHEST 1 VIEWon 05-05-2023 XR CHEST [...] Date: 05/05/2023 9:17:04 PM Ordering Provider: DEMI [facility] ([place]) XR RIBS 2 VIEWS RIGHTon XR [...] 05/05/2023 9:08:30 PM Ordering Provider: DEMI BETZAIDA [facility]) PBNPon 03-22-2023 Natriuretic peptide B (Bld) [Mass/Vol] 378 pg/mL High 0-125 [facility]) Comment on above: Result Comment: NT-p roBNP results of less than 300 pg/mL effectively rules out acute congestive heart failure with 99% negative predictive value. Performed By: #### A DIFF, TROPHS, GFR, BMP, MDW, CBC, PBNP, ANEU #### [address] [address] Influenza virus A and B and SARS-CoV-2 (COVID-19) Ag panel - Upper respiratory specimOrdered By: Nguyễn Al on 02-12-2023 SARS-CoV-2 (COVID-19) RNA ROSE+probe Ql (Resp) [facility] LABORATORYOrdered By: SYSTEM SYSTEM on [...] 150 mg/dL AO ADM SS LABORATORYOrdered By: [employer] SYSTEM on 10-27-2022 Albumin BCP dye [Mass/Vol] [...] Auto (Unsp spec) [#/Vol] 1.50 10*3/uL 0.83-4.51 [facility] Basophil percentageOrdered B y: Dr. Brown on 10-23-2022 Basophils/100 WBC (Bld) 0.8 % 0-1 [facility] Chloride [Moles/Vol] 102 mmol/L 98-107 [facility] Eosinophils/100 WBC (Bld) 2.4 % 0-5 [facility] Glucose [Mass/Vol] 126 mg/dL 74-106 [facility] Comment on above: Fasting Glucose resu lt greater than or equal to 126 mg/dL suggests DIABETES MELLITUS per A.D.A. criteria. Neutrophils (Bld) [#/Vol] 5.4 10*3/uL 2.0-7.7 [facility] Neutrophils/100 WBC (Bld) 67.9 % 47-70 [facility] Potassium [Moles/Vol] 3.2 mmol/L 3.5-5.1 [facility] Sodium [Moles/Vol] 140 mmol/L 136-145 [facility] WBC (Bld) [#/Vol] 7.9 10*3/uL 4.4-11.0 [facility] Blood erythrocytes count (nu mber/volume)Ordered By: Dr. Brown on 10-23-2022 RBC (Bld) [#/Vol] 6.06 10*6/uL 4.6-6.2 [facility] Blood hemoglobin measurement (mass/volume)Ordered By: Dr. Brown on 10-23-2022 Hemoglobin (Bld) [Mass/Vol] 17.2 g/dL 13.0-16.5 [facility] Blood lymphocytes/100 leukoc ytesOrdered By: Dr. Brown on 10-23-2022 Lymphocytes/100 WBC (Bld) 19.0 % 19-41 [facility] Blood monocytes/100 leukocyt esOrdered By: Dr. Brown on 10-23-2022 Monocytes/100 WBC (Bld) 9.6 % 0-10 [facility] Blood platelet mean volumeOr dered By: Dr. Brown on 10-23-2022 Platelet mean volume (Bld) [Entitic vol] 10.3 fL 6.2-12.0 [facility] Determination of erythrocyte mean corpuscular volume (MCV)Ordered By: Dr. Brown on 10-23-2022 MCV (RBC) [Entitic vol] 89.6 fL 80-94 [facility] Hematocrit Auto (Bld) [Volum e fraction]Ordered By: Dr. Brown on 10-23-2022 Hematocrit (Bld) [Volume fraction] 54.3 % 40-54 [facility] Laboratory - Chemistry and C hemistry - challengeOrdered By: Dr. Brown on 10-23-2022 CO2 [Moles/Vol] 32.0 mmol/L 21.0-32.0 [facility] Natriuretic peptide B (Bld) [Mass/Vol] 182.2 pg/mL 0-100 [facility] Urea nitrogen/Creatinine [Mass ratio] 13.0 mg/mg 10-20 [facility] Laboratory - Hematology and Cell countsOrdered By: Dr. Brown on 10-23-2022 Erythrocyte distribution width (RBC) [Entitic vol] 46.1 fL 35.1-43.9 [facility] Erythrocyte distribution width (RBC) [Ratio] 14.1 % 11.6-14.6 [facility] Immature granulocytes/100 WBC (Bld) 0.300 % 0.0-0.9 [facility] Comment on above: IG% - Immature Granu locytes (promyelocytes, myelocytes and metamyelocytes) > 1% indicates that a LEFT SHIFT is Present. MCH (RBC) [Entitic mass] 28.4 pg 27.0-32.0 [facility] Nucleated RBC/100 WBC (Bld) [Ratio] 0 % 0-5 [facility] MCHC Auto (RBC) [Mass/Vol]Or dered By: Dr. Brown on 10-23-2022 MCHC (RBC) [Mass/Vol] 31.7 g/dL 32-36 [facility] No Panel InformationOrdered By: Dr. Brown on 10-23-2022 Troponin I High Sensitivity 14 pg/mL 3.0-78.0 [facility] Comment on above: Please Note: New Faye t Units and Gender Specific Reference Ranges. For more information see Policy Stat Procedure [place] High Sensitivity Troponin (TNIH) and attachments. Estimated Creatinine Clearance Calc 104.04 ml/min [facility] Estimated GFR (MDRD) Amer 123 mL/min >60 [facility] Comment on above: GFR Calc Estimated GFR (MDRD) Non-Af Amer 102 mL/min >60 [facility] Comment on above: Non- GFR Calc Platelets bldOrdered By: Dr. Brown on 10-23-2022 Platelets (Bld) [#/Vol] 234 10*3/uL 150-450 [facility] Serum or plasma calcium scott urement (mass/volume)Ordered By: Dr. Brown on 10-23-2022 Calcium [Mass/Vol] 8.7 mg/dL 8.5-10.1 [facility] Serum or plasma creatinine m easurement (mass/volume)Ordered By: Dr. Brown on 10-23-2022 Creatinine [Mass/Vol] 0.84 mg/dL 0.70-1.30 [facility] Comment on above: The validity of the calculated GFR & GFRAA in patients over 70 years has not been determined. Clinical correlation is essential. Serum or plasma urea nitroge n measurement (mass/volume)Ordered By: Dr. Brown on 10-23-2022 Urea nitrogen [Mass/Vol] 11 mg/dL 7-18 [facility] Thin prep Papanicolaou smear with manual screeningOrdered By: Dr. Brown on 10-23-2022 Thin prep Papanicolaou smear with manual screening 6 5-15 [facility] Invasive Cardiology Clinic N oteon 08-24-2021 Invasive Cardiology Clinic Note . [facility] A Division of [facility] Gem Barr M.D., [place] [address] * Reason for VisitFOLLOW UP CHEST PAIN(1) [...] me to participate in your patient's care. Director Trade Statement: Transcribed for Dr. Barr by LEWIS , cat driver. Electronic Signatures: Gem Barr) (Signed 11:31) Authored: Letterhead Option, Reason for Visit, Vital Signs, Allergies/Meds, History of Present Illness, Past Medical, Surgical and Family History, ROS, Physical Exam, Results, Assessment and Plan, Director Trade Statement Km Phan (Bronc Breaker) (Entered 15:30) Entered: Letterhead Option, Reason for Visit, Vital Signs, Allergies/Meds, History of Pr (more content not included)... Normal [employer] Echocardiogram-Completeon Echocardiogram-Complete Study ID: [id number] [facility] [place] [address] Name: CARLOS ALBERTO KELLEY JR Study Date: 08/17/2021 07:55 AM [...] mmHg MV P1/2t-pr: 94.6 msec E/LatE': 9.4 \\\\[id number]\\[id number] [facility] Invasive Cardiology Clinic N oteon 08-02-2021 Invasive Cardiology Clinic Note . [facility] A Division of [facility] Gem Barr M.D., [place] [address] * Reason for VisitFOLLOW UP CHEST PAIN(1) [...] to con (more content not included)... 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 Normal [facility] GLYCOHEMOGLOBINon 01-06-2021 HbA1c (Bld) [Mass fraction] 6.43 % High 4.60-6.30 [facility] Comment on above: Performed By: #### % A1c #### [facility] [address] [place] [id number] SUE Flores MD LIPID PROFILE - FASTINGon Cholesterol [Mass/Vol] 152 mg/dL Normal <=200 [facility] Comment on above: Performed By: #### L IPID #### [facility] [address] [place] [id number] SUE Flores MD Cholesterol in HDL [Mass/Vol] 28 mg/dL Low 40-60 [facility] Comment on above: Performed By: #### L IPID #### [facility] [address] [place] [address] [id number] SUE Flores MD Cholesterol in LDL [Mass/Vol] 85 mg/dL Normal 0-130 [facility] Comment on above: Performed By: #### L IPID #### [facility] [address] [place], [place] [id number] SUE Flores MD COMMENT Recommended (Desirable) < 130mg/dL Moderate Risk 130-159 mg/dL High Risk: >/= 130 mg/dL Normal [facility] Comment on above: Performed By: #### L IPID #### [facility] [address] [place] [place] [address] SUE Flores MD Triglyceride [Mass/Vol] 198 mg/dL High <=150 [facility] Comment on above: Performed By: #### L IPID #### [facility] [address] [place] [place] [address] SUE Flores MD RENAL FUNCTION PANELon 01-06 Albumin [Mass/Vol] 4.4 g/dL Normal 3.5-5.0 [facility] Comment on above: Performed By: #### R FP #### [facility] [address] [place] [place] [address] SUE Flores MD Calcium [Mass/Vol] 9.6 mg/dL Normal 8.4-10.2 [facility] Comment on above: Performed By: #### R FP #### [facility] [address] [place] [place] [address] SUE Flores MD Chloride [Moles/Vol] 96 mmol/L Low 98-107 [facility] Comment on above: Performed By: #### R FP #### [facility] [address] [place] [place] [address] SUE Flores MD Creatinine [Mass/Vol] 0.9 mg/dL Normal 0.7-1.3 [facility] Comment on above: Performed By: #### R FP #### [facility] [address] [place] [place] [address] SUE Flores MD ECO2 29 mmol/L Normal 22-30 [facility] Comment on above: Performed By: #### R FP #### [facility] [address] [place], [place] [id number] SUE Flores MD EGFR-AF UZBEK 109 mL/min/1.73m 2 Normal >=60 [facility] Comment on above: Performed By: #### R FP #### [facility] [address] [place] [address] SUE Flores MD EGFR-NON AF UZBEK 90 mL/min/1.73 m 2 Normal >=60 [facility] Comment on above: Performed By: #### R FP #### [facility] [address] [place], [place] [id number] SUE Flores MD Glucose [Mass/Vol] 146 mg/dL High 70-99 [facility] Comment on above: Performed By: #### R FP #### [facility] [address] [place] [address] SUE Flores MD Phosphate [Mass/Vol] 4.2 mg/dL Normal 2.5-4.5 [facility] Comment on above: Performed By: #### R FP #### [facility] [address] [place] [address] SUE Flores MD Potassium [Moles/Vol] 4.0 mmol/L Normal 3.5-5.0 [facility] Comment on above: Performed By: #### R FP #### [facility] [address] [place] [address] SUE Flores MD Sodium [Moles/Vol] 136 mmol/L Low 137-145 [facility] Comment on above: Performed By: #### R FP #### [facility] [address] [place], [place] [id number] SUE Flores MD Urea nitrogen [Mass/Vol] 13 mg/dL Normal 9-20 [facility] Comment on above: Performed By: #### R FP #### [facility] [address] [place], [place] [id number] SUE Flores MD CHEST TWO VIEWSon 11-09-2020 CHEST TWO VIEWS TWO VIEWS OF THE CHEST CLINICAL HISTORY: Shortness of breath. PA and lateral views of the chest were performed and compared to prior exam of 02/01/19. The heart is normal size. Chronic changes are seen within the lungs. There is no consolidation, pleural effusion or pneumothorax. IMPRESSION: NO ACUTE PULMONARY DISEASE. Electronically signed by: FERNANDO DYER MD Approved By: FERNANDO DYER MD Date: 11/09/2020 3:55 PM Normal [facility] CBC PLT DIFFon 06-11-2020 BASO # 0.04 10 3/uL Normal 0.00-0.10 [facility] Comment on above: Performed By: #### C BC #### [facility] [address] [place] [address] SUE Flores MD Basophils/100 WBC (Bld) 0.5 % Normal 0.2-1.0 [facility] Comment on above: Performed By: #### C BC #### [facility] [address] [place] [address] SUE Flores MD EOS# 0.19 10 3/uL Normal 0.00-0.20 [facility] Comment on above: Performed By: #### C BC #### [facility] [address] [place] [address] SUE Flores MD Eosinophils/100 WBC (Bld) 2.3 % Normal 0.9-2.9 [facility] Comment on above: Performed By: #### C BC #### [facility] [address] [place] [address] SUE Flores MD Erythrocyte distribution width (RBC) [Ratio] 13.4 % Normal 11.5-15.5 [facility] Comment on above: Performed By: #### C BC #### [facility] [address] [place] [address] SUE Flores MD Hematocrit (Bld) [Volume fraction] 46.5 % Normal 42.0-52.0 [facility] Comment on above: Performed By: #### C BC #### [facility] [address] [place], [place] [id number] SUE Flores MD Hemoglobin (Bld) [Mass/Vol] 16.0 g/dL Normal 14.0-18.0 [facility] Comment on above: Performed By: #### C BC #### [facility] [address] [place] [address] SUE Flores MD IG# 0.04 10 3/uL Normal [facility] Comment on above: Performed By: #### C BC #### [facility] [address] [place] [address] SUE Flores MD IG% 0.5 % Normal [facility] Comment on above: Performed By: #### C BC #### [facility] [address] [place] [address] SUE Flores MD LYMPH# 1.41 10 3/uL Normal 1.30-2.90 [facility] Comment on above: Performed By: #### C BC #### [facility] [address] [place] [address] SUE Flores MD Lymphocytes/100 WBC (Bld) 17.4 % Low 20.5-45.5 [facility] Comment on above: Performed By: #### C BC #### [facility] [address] [place] [address] SUE Flores MD MCH (RBC) [Entitic mass] 30.1 pg Normal 27.0-31.0 [facility] Comment on above: Performed By: #### C BC #### [facility] [address] [place] [address] SUE Flores MD MCHC (RBC) [Mass/Vol] 34.4 g/dL Normal 32.0-36.0 [facility] Comment on above: Performed By: #### C BC #### [facility] [address] [place] [address] SUE Flores MD MCV (RBC) [Entitic vol] 87.6 fL Normal 80.0-94.0 [facility] Comment on above: Performed By: #### C BC #### [facility] [address] [place] [address] SUE Flores MD MONO# 0.67 10 3/uL Normal 0.30-0.80 [facility] Comment on above: Performed By: #### C BC #### [facility] [address] [place] [address] SUE Flores MD Monocytes/100 WBC (Bld) 8.3 % Normal 5.5-11.7 [facility] Comment on above: Performed By: #### C BC #### [facility] [address] [place] [address] SUE Flores MD Morphology Rocky (Bld) [Interp] Normal [facility] Comment on above: Performed By: #### C BC #### [facility] [address] [place] [address] SUE Flores MD NEUT# 5.75 10 3/uL High 2.20-4.80 [facility] Comment on above: Performed By: #### C BC #### [facility] [address] [place] [address] SUE Flores MD Neutrophils/100 WBC (Bld) 71.0 % High 43.0-65.0 [facility] Comment on above: Performed By: #### C BC #### [facility] [address] [place] [address] SUE Flores MD NRBC# 0.00 10 3/uL Normal [facility] Comment on above: Performed By: #### C BC #### [facility] [address] [place] [address] SUE Flores MD Nucleated RBC/100 WBC (Bld) [Ratio] 0.0 % Normal [facility] Comment on above: Performed By: #### C BC #### [facility] [address] [place] [address] SUE Flores MD Platelet mean volume (Bld) [Entitic vol] 8.4 fL Normal 7.4-10.4 [facility] Comment on above: Performed By: #### C BC #### [facility] [address] [place], [place] [id number] SUE Flores MD PLT 221 10 3/uL Normal 130-400 [facility] Comment on above: Performed By: #### C BC #### [facility] [address] [place], [place] [id number] SUE Flores MD RBC 5.31 10 6/uL Normal 4.70-6.10 [facility] Comment on above: Performed By: #### C BC #### [facility] [address] [place], [place] [id number] SUE Flores MD WBC 8.10 10 3/uL Normal 4.70-10.80 [facility] Comment on above: Performed By: #### C BC #### [facility] [address] [place] [address] SUE Flores MD CMPon 06-11-2020 Albumin [Mass/Vol] 4.1 g/dL Normal 3.5-5.0 [facility] Comment on above: Performed By: #### C MP #### [facility] [address] [place] [address] SUE Flores MD ALP [Catalytic activity/Vol] 72 U/L Normal 38-126 [facility] Comment on above: Performed By: #### C MP #### [facility] [address] [place] [address] SUE Flores MD ALT [Catalytic activity/Vol] 17 U/L Low 21-72 [facility] Comment on above: Performed By: #### C MP #### [facility] [address] [place] [address] SUE Flores MD AST [Catalytic activity/Vol] 21 U/L Normal 17-59 [facility] Comment on above: Performed By: #### C MP #### [facility] [address] [place] [address] SUE Flores MD Bilirubin [Mass/Vol] 0.6 mg/dL Normal 0.2-1.3 [facility] Comment on above: Performed By: #### C MP #### [facility] [address] [place], [place] [id number] SUE Flores MD Calcium [Mass/Vol] 8.9 mg/dL Normal 8.4-10.2 [facility] Comment on above: Performed By: #### C MP #### [facility] [address] [place] [address] SUE Flores MD Chloride [Moles/Vol] 99 mmol/L Normal 98-107 [facility] Comment on above: Performed By: #### C MP #### [facility] [address] [place] [address] SUE Flores MD Creatinine [Mass/Vol] 0.7 mg/dL Normal 0.7-1.3 [facility] Comment on above: Performed By: #### C MP #### [facility] [address] [place] [address] SUE Flores MD ECO2 30 mmol/L Normal 22-30 [facility] Comment on above: Performed By: #### C MP #### [facility] [address] [place] [address] SUE Flores MD EGFR-AF UZBEK 146 mL/min/1.73m 2 Normal >=60 [facility] Comment on above: Performed By: #### C MP #### [facility] [address] [place] [address] SUE Flores MD EGFR-NON AF UZBEK 120 mL/min/1.73 m 2 Normal >=60 [facility] Comment on above: Performed By: #### C MP #### [facility] [address] [place] [address] SUE Flores MD Glucose [Mass/Vol] 125 mg/dL High 70-99 [facility] Comment on above: Performed By: #### C MP #### [facility] [address] [place] [address] SUE Flores MD Potassium [Moles/Vol] 3.6 mmol/L Normal 3.5-5.0 [facility] Comment on above: Performed By: #### C MP #### [facility] [address] [place] [address] SUE Flores MD Protein [Mass/Vol] 7.4 g/dL Normal 6.3-8.2 [facility] Comment on above: Performed By: #### C MP #### [facility] [address] [place] [address] SUE Flores MD Sodium [Moles/Vol] 136 mmol/L Low 137-145 [facility] Comment on above: Performed By: #### C MP #### [facility] [address] [place] [address] SUE Flores MD Urea nitrogen [Mass/Vol] 11 mg/dL Normal 9-20 [facility] Comment on above: Performed By: #### C MP #### [facility] [address] [place] [address] SUE Flores MD GLYCOHEMOGLOBINon 06-11-2020 HbA1c (Bld) [Mass fraction] 6.22 % Normal 4.00-6.30 [facility] Comment on above: Performed By: #### % A1c #### [facility] [address] [place] [address] SUE Flores MD LIPID PROFILE - FASTINGon Cholesterol [Mass/Vol] 147 mg/dL Normal <=200 [facility] Comment on above: Performed By: #### L IPID #### [facility] [address] [place] [address] SUE Flores MD Cholesterol in HDL [Mass/Vol] 24 mg/dL Low 40-60 [facility] Comment on above: Performed By: #### L IPID #### [facility] [address] [place] [address] SUE Flores MD Cholesterol in LDL [Mass/Vol] 89 mg/dL Normal 0-130 [facility] Comment on above: Performed By: #### L IPID #### [facility] [address] [place] [address] SUE Flores MD COMMENT Recommended (Desirable) < 130mg/dL Moderate Risk 130-159 mg/dL High Risk: >/= 130 mg/dL Normal [facility] Comment on above: Performed By: #### L IPID #### [facility] [address] [place] [address] SUE Flores MD Triglyceride [Mass/Vol] 167 mg/dL High <=150 [facility] Comment on above: Performed By: #### L IPID #### [facility] [address], [place] [address] SUE Flores MD URIC ACIDon 06-11-2020 Urate [Mass/Vol] 5.6 mg/dL Normal 3.5-8.5 [facility] Comment on above: Performed By: #### U R #### [facility] [address] [place], [place] [id number] SUE Flores MD Vital Signs Date Time Vital Sign Value Performing Clinician Faci lity 12-21-2024 12:18-0400 Body temperature 97.9 [degF] Girma Correa [employer]ER[employer]C Work Phone: [facility] 12-21-2024 12:18-0400 Diastolic blood pressure 76 mm[Hg] Girma Correa [employer]C Work Phone: [facility] 12-21-2024 12:18-0400 Heart rate 70 /min Girma Correa [employer] Work Phone: [facility] 12-21-2024 12:18-0400 Respiratory rate 16 /min Girma Correa [employer] Work Phone: [facility] 12-21-2024 12:18-0400 SaO2% (BldA) [Mass fraction] 98 % Girma Correa [employer] Work Phone: [facility] 12-21-2024 12:18-0400 Systolic blood pressure 137 mm[Hg] Girma Correa [employer]C Work Phone: [facility] 12-21-2024 08:26-0400 Inhaled oxygen flow rate 2 L/min Girma Correa [employer] Work Phone: [facility] 12-21-2024 03:14-0400 Body mass index (BMI) [Ratio] 45.8 kg/m2 Girma Correa [employer] Work Phone: [facility] 12-21-2024 03:14-0400 Body weight 140.6 kg Girma Correa [employer] Work Phone: [facility] 12-20-2024 21:02-0400 Body height 175.26 cm Girma Correa [employer] Work Phone: [facility] 12-20-2024 19:58-0400 Body temperature 98.2 [degF] Girma Correa [employer] Work Phone: [facility] 12-20-2024 19:58-0400 Diastolic blood pressure 64 mm[Hg] Girma Correa [employer] Work Phone: [facility] 12-20-2024 19:58-0400 Heart rate 72 /min Girma Correa [employer] Work Phone: [facility] 12-20-2024 19:58-0400 Respiratory rate 16 /min Girma Correa [employer] Work Phone: [facility] 12-20-2024 19:58-0400 SaO2% (BldA) [Mass fraction] 97 % Girma Correa [employer] Work Phone: [facility] 12-20-2024 19:58-0400 Systolic blood pressure 137 mm[Hg] Girma Correa [employer] Work Phone: [facility] 12-20-2024 15:51-0400 Body mass index (BMI) [Ratio] 47.1 kg/m2 Girma Correa [employer] Work Phone: [facility] 12-20-2024 15:51-0400 Body weight 144.7 kg Girma Correa [employer] Work Phone: [facility] 12-20-2024 14:00-0400 Inhaled oxygen flow rate 2 L/min Girma Correa [employer] Work Phone: [facility] 12-20-2024 13:05-0400 Body height 175.26 cm Girma Correa [employer] Work Phone: [facility] 12-20-2024 03:00-0400 Diastolic blood pressure 82 mm[Hg] Girma Correa [employer] Work Phone: [facility] 12-20-2024 03:00-0400 Heart rate 61 /min Girma Wellsaj [employer] Work Phone: [facility] 12-20-2024 03:00-0400 Respiratory rate 17 /min Girma Wellsaj [employer] Work Phone: [facility] 12-20-2024 03:00-0400 Systolic blood pressure 126 mm[Hg] Girma Correa [employer]C Work Phone: [facility] 12-20-2024 02:36-0400 Body temperature 98.2 [degF] Girma Correa [employer]C Work Phone: [facility] 12-19-2024 22:20-0400 Body height 175.26 cm Girma Wellsaj [employer] Work Phone: [facility] 12-19-2024 22:20-0400 Body mass index (BMI) [Ratio] 47.5 kg/m2 Girma Correa [employer] Work Phone: [facility] 12-19-2024 22:20-0400 Body weight 146.1 kg Girma Correa [employer]C Work Phone: [facility] 10-04-2024 21:13-0400 Reason For Taking VItal Signs DR ROBERT SCHMITZ MD [facility] 10-04-2024 19:37-0400 Heart rate 71 /min DR ROBERT Walls [facility] 10-04-2024 19:37-0400 Reason For Taking VItal Signs DR ROBERT SCHMITZ MD [facility] 10-04-2024 19:37-0400 Respiratory rate 18 /min DR ROBERT Walls [facility] 10-04-2024 19:14-0400 Heart rate 66 /min DR ROBERT Walls [address] [place] [address] 10-04-2024 19:14-0400 Blood Pressure Cuff Size DR ROBERT SCHMITZ MD [address] [place] [address] 10-04-2024 19:14-[address] ROBERT SCHMITZ MD [address] [place] [address] 10-04-2024 19:14-[address] ROBERT SCHMITZ MD [address] [place] [address] 10-04-2024 19:14-0400 Body temperature 97.7 [degF] DR ROBERT Walls [address] [place] [address] 10-04-2024 19:14-0400 Diastolic Blood Pressure Non-Invasive 90 mm[Hg] DR ROBERT SCHMITZ MD [address] [place] [address] 10-04-2024 19:14-0400 Reason For Taking VItal Signs DR ROEBRT SCHMITZ MD [address] [place] [address] 10-04-2024 19:14-0400 Respiratory rate 16 /min DR ROBERT Walls [address] [place] [address] 10-04-2024 19:14-0400 Systolic Blood Pressure Non-Invasive 138 mm[Hg] DR ROBERT SCHMITZ MD [address] [place] [address] 10-04-2024 16:28-0400 Heart rate 72 /min DR ROBERT Walls [address] [place] [address] 10-04-2024 15:31-0400 Heart rate 72 /min DR ROBERT Walls [address] [place] [address] 10-04-2024 15:31-0400 Blood Pressure Cuff Size DR ROBERT SCHMITZ MD [address] [place] [address] 10-04-2024 15:31-[address] ROBERT SCHMITZ MD [address] [place] [address] 10-04-2024 15:31-[address] ROBERT SCHMITZ MD [address] [place] [address] 10-04-2024 15:31-0400 Body temperature 97.52 [degF] DR ROBERT Walls [address] [place] [address] 10-04-2024 15:31-0400 Diastolic Blood Pressure Non-Invasive 72 mm[Hg] DR ROBERT SCHMTIZ MD [address] [place] [address] 10-04-2024 15:31-0400 Respiratory rate 16 /min DR ROBERT Walls [address] [place] [address] 10-04-2024 15:31-0400 Systolic Blood Pressure Non-Invasive 120 mm[Hg] DR ROBERT SCHMITZ MD [address] [place] [address] 10-04-2024 15:02-0400 Blood Pressure Cuff Size DR ROBERT SCHMITZ MD [address] [place] [address] 10-04-2024 15:02-[address] ROBERT SCHMITZ MD [address] [place] [address] 10-04-2024 15:02-[address] ROBERT SCHMITZ MD [address] [place] [address] 10-04-2024 15:02-0400 Body temperature 97.88 [degF] DR ROBERT Walls [address] [place] [address] 10-04-2024 15:02-0400 Diastolic Blood Pressure Non-Invasive 78 mm[Hg] DR ROBERT SCHMITZ MD [address] [place] [address] 10-04-2024 15:02-0400 Heart rate 73 /min DR ROBERT Walls [address] [place] [address] 10-04-2024 15:02-0400 Systolic Blood Pressure Non-Invasive 116 mm[Hg] DR ROBERT SCHMITZ MD [address] [place] [address] 10-04-2024 11:59-0400 Heart rate 61 /min DR ROBERT Walls [address] [place] [address] 10-04-2024 07:54-0400 Heart rate 66 /min DR ROBERT Walls [facility] 10-04-2024 07:46-0400 Heart rate 64 /min DR ROBERT Walls [facility] 10-03-2024 16:05-0400 Heart rate 74 /min DR ROBERT Walls [facility] 10-02-2024 06:28-0400 Body height 177.[address] ROBERT Walls [facility] 10-02-2024 06:28-0400 Body weight 140.[address] ROBERT Walls [facility] 10-02-2024 06:28-0400 Body weight 44.38 kg/m2 DR ROBERT Walls [facility] 10-02-2024 05:00-0400 Diastolic Blood Pressure Non-Invasive 68 mm[Hg] DELORES DURESKA DO [facility] 10-02-2024 05:00-0400 Heart rate 116 /min DELORES DURESKA DO [facility] 10-02-2024 05:00-0400 Systolic Blood Pressure Non-Invasive 108 mm[Hg] DELORES DURESKA DO [facility] 10-02-2024 04:00-0400 Diastolic Blood Pressure Non-Invasive 70 mm[Hg] DELORES DURESKA DO [facility] 10-02-2024 04:00-0400 Heart rate 125 /min DELORES DURESKA DO [facility] 10-02-2024 04:00-0400 Systolic Blood Pressure Non-Invasive 101 mm[Hg] DELORES DURESKA DO [facility] 10-02-2024 02:31-0400 Body weight 143 kg DELORES VOKA DO [facility] 10-02-2024 02:15-0400 Diastolic Blood Pressure Non-Invasive 90 mm[Hg] DELORES BARROSOESKA DO [facility] 10-02-2024 02:15-0400 Heart rate 120 /min DELORES BARROSOESKA DO [facility] 10-02-2024 02:15-0400 Respiratory rate 18 /min DELORES VOKA DO [facility] 10-02-2024 02:15-0400 Systolic Blood Pressure Non-Invasive 106 mm[Hg] DELORES VOKA DO [facility] 10-02-2024 00:27-0400 Body temperature 98.06 [degF] DELORES MURO DO [facility] 02-01-2024 16:08-0400 Heart rate 72 /min CINDY HERNANDEZ MD [facility] 02-01-2024 15:25-0400 Heart rate 68 /min CINDY HERNANDEZ MD [facility] 02-01-2024 15:25-0400 Respiratory rate 18 /min CINDY HERNANDEZ MD [facility] 02-01-2024 14:44-0400 Body temperature 98.6 [degF] CINDY HERNANDEZ MD [facility] 02-01-2024 14:44-0400 Diastolic Blood Pressure Non-Invasive 82 mm[Hg] CINDY HERNANDEZ MD [facility] 02-01-2024 14:44-0400 Heart rate 72 /min CINDY HERNANDEZ MD [facility] 02-01-2024 14:44-0400 Respiratory rate 18 /min CINDY HERNANDEZ MD [facility] 02-01-2024 14:44-0400 Systolic Blood Pressure Non-Invasive 119 mm[Hg] CINDY HERNANDEZ MD [facility] 02-01-2024 11:12-0400 Body temperature 98.24 [degF] CINDY HERNANDEZ MD [facility] 02-01-2024 11:12-0400 Diastolic Blood Pressure Non-Invasive 72 mm[Hg] CINDY HERNANDEZ MD [facility] 02-01-2024 11:12-0400 Heart rate 82 /min CINDY HERNANDEZ MD [facility] 02-01-2024 11:12-0400 Reason For Taking VItal Signs CINDY HERNANDEZ MD [facility] 02-01-2024 11:12-0400 Respiratory rate 18 /min CINDY HERNANDEZ MD [facility] 02-01-2024 11:12-0400 Systolic Blood Pressure Non-Invasive 101 mm[Hg] CINDY HERNANDEZ MD [facility] 02-01-2024 09:16-0400 Heart rate 79 /min CINDY HERNANDEZ MD [facility] 02-01-2024 09:04-0400 Blood Pressure Cuff Size CINDY HERNANDEZ MD [facility] 02-01-2024 09:04-0400 Blood Pressure Location CINDY HERNANDEZ MD [facility] 02-01-2024 09:04-0400 Blood Pressure Method CINDY HERNANDEZ MD [facility] 02-01-2024 09:04-0400 Body temperature 98.96 [degF] CINDY HERNANDEZ MD [facility] 02-01-2024 09:04-0400 Diastolic Blood Pressure Non-Invasive 64 mm[Hg] CINDY HERNANDEZ MD [facility] 02-01-2024 09:04-0400 Heart rate 84 /min CINDY HERNANDEZ MD [facility] 02-01-2024 09:04-0400 Reason For Taking VItal Signs CINDY HERNANDEZ MD [facility] 02-01-2024 09:04-0400 Systolic Blood Pressure Non-Invasive 105 mm[Hg] CINDY HERNANDEZ MD [facility] 02-01-2024 07:04-0400 Heart rate 60 /min CINDY HERNANDEZ MD [facility] 02-01-2024 03:35-0400 Heart rate 80 /min CINDY HERNANDEZ MD [facility] 02-01-2024 03:35-0400 Mean blood pressure 73 mm[Hg] CINDY HERNANDEZ MD [facility] 02-01-2024 03:35-0400 Reason For Taking VItal Signs CINDY HERNANDEZ MD [facility] 01-31-2024 23:23-0400 Heart rate 84 /min CINDY HERNANDEZ MD [facility] 01-31-2024 23:23-0400 Mean blood pressure 74 mm[Hg] CINDY HERNANDEZ MD [facility] 01-31-2024 18:38-0400 Mean blood pressure 79 mm[Hg] CINDY HERNANDEZ MD [facility] 01-31-2024 02:56-0400 Body height 175 cm CINDY HERNANDEZ MD [facility] 01-31-2024 02:56-0400 Body weight 149.1 kg CINDY HERNANDEZ MD [facility] 01-31-2024 02:56-0400 Body weight 48.69 kg/m2 CINDY HERNANDEZ MD [facility] 01-31-2024 01:18-[address] SAMY JONES MD [facility] 01-31-2024 01:18-[address] SAMY JONES MD [facility] 01-31-2024 01:18-0400 Diastolic Blood Pressure Non-Invasive 71 mm[Hg] DR SAMY JONES MD [facility] 01-31-2024 01:18-0400 Heart rate 90 /min DR SAMY JONES MD [facility] 01-31-2024 01:18-0400 Mean blood pressure 82 mm[Hg] DR SAMY JONES MD [facility] 01-31-2024 01:18-0400 Reason For Taking VItal Signs DR SAMY JONES MD [facility] 01-31-2024 01:18-0400 Respiratory rate 18 /min DR SAMY JONES MD [facility] 01-31-2024 01:18-0400 Systolic Blood Pressure Non-Invasive 111 mm[Hg] DR SAMY JONES MD [facility] 01-31-2024 01:07-[address] SAMY JONES MD [facility] 01-31-2024 01:07-[address] SAMY JONES MD [facility] 01-31-2024 01:07-0400 Diastolic Blood Pressure Non-Invasive 61 mm[Hg] DR SAMY JONES MD [facility] 01-31-2024 01:07-0400 Heart rate 85 /min DR SAMY JONES MD [facility] 01-31-2024 01:07-0400 Mean blood pressure 71 mm[Hg] DR SAMY JONES MD [facility] 01-31-2024 01:07-0400 Reason For Taking VItal Signs DR SAMY JONES MD [facility] 01-31-2024 01:07-0400 Respiratory rate 12 /min DR SAMY JONES MD [facility] 01-31-2024 01:07-0400 Systolic Blood Pressure Non-Invasive 90 mm[Hg] DR SAMY JONES MD [facility] 01-31-2024 00:58-[address] SAMY JONES MD [facility] 01-31-2024 00:58-[address] SAMY JONES MD [facility] 01-31-2024 00:58-0400 Diastolic Blood Pressure Non-Invasive 64 mm[Hg] DR SAMY JONES MD [facility] 01-31-2024 00:58-0400 Heart rate 89 /min DR SAMY JONES MD [facility] 01-31-2024 00:58-0400 Mean blood pressure 76 mm[Hg] DR SAMY JONES MD [facility] 01-31-2024 00:58-0400 Reason For Taking VItal Signs DR SAMY JONES MD [facility] 01-31-2024 00:58-0400 Respiratory rate 13 /min DR SAMY JONES MD [facility] 01-31-2024 00:58-0400 Systolic Blood Pressure Non-Invasive 97 mm[Hg] DR SAMY JONES MD [facility] 01-30-2024 20:22-0400 SaO2% (BldA) [Mass fraction] 88.8 % DR SAMY JONES MD [facility] 01-30-2024 20:15-0400 Body height 175.[address] SAMY JONES MD [facility] 01-30-2024 20:15-0400 Body temperature 99.32 [degF] DR SAMY JONES MD [facility] 01-30-2024 20:15-0400 Body weight 145.[address] SAMY JONES MD [facility] 01-30-2024 20:15-0400 Heart rate 133 /min DR SAMY JONES MD [facility] 08-09-2023 21:07-0400 Blood Pressure Cuff Size DR OLLIE BROOKE MD [facility] 08-09-2023 21:07-[address] OLLIE BROOKE MD [facility] 08-09-2023 21:07-[address] OLLIE BROOKE MD [facility] 08-09-2023 21:07-0400 Body height 177.[address] OLLIE BROOKE MD [facility] 08-09-2023 21:07-0400 Body temperature 96.98 [degF] DR OLLIE BROOKE MD [facility] 08-09-2023 21:07-0400 Body weight 155.[address] OLLIE BROOKE MD [facility] 08-09-2023 21:07-0400 Diastolic Blood Pressure Non-Invasive 78 mm[Hg] DR OLLIE BROOKE MD [facility] 08-09-2023 21:07-0400 Heart rate 70 /min DR OLLIE BROOKE MD [facility] 08-09-2023 21:07-0400 Reason For Taking VItal Signs DR OLLIE BROOKE MD [facility] 08-09-2023 21:07-0400 Respiratory rate 22 /min DR OLLIE BROOKE MD [facility] 08-09-2023 21:07-0400 Systolic Blood Pressure Non-Invasive 121 mm[Hg] DR OLLIE BROOKE MD [facility] 06-13-2023 01:18-0500 Diastolic Blood Pressure Non-Invasive 78 mm[Hg] DEMI HUSTON MD [facility] 06-13-2023 01:18-0500 Heart rate 80 /min DEMI HUSTON MD [facility] 06-13-2023 01:18-0500 Respiratory rate 18 /min DEMI HUSTON MD [facility] 06-13-2023 01:18-0500 Systolic Blood Pressure Non-Invasive 142 mm[Hg] DEMI HUSTON MD [facility] 06-13-2023 00:35-0500 Heart rate 74 /min DEMI HUSTON MD [facility] 06-13-2023 00:35-0500 Respiratory rate 20 /min DEMI HUSTON MD [facility] 06-13-2023 00:03-0500 Body temperature 97.7 [degF] DEMI HUSTON MD [facility] 06-13-2023 00:03-0500 Diastolic Blood Pressure Non-Invasive 84 mm[Hg] DEMI HUSTON MD [facility] 06-13-2023 00:03-0500 Heart rate 67 /min DEMI HUSTON MD [facility] 06-13-2023 00:03-0500 Respiratory rate 20 /min DEMI HUSTON MD [facility] 06-13-2023 00:03-0500 Systolic Blood Pressure Non-Invasive 153 mm[Hg] DEMI HUSTON MD [facility] 06-09-2023 21:35-0500 Heart rate 60 /min MOY WATTS MD [facility] 06-09-2023 21:35-0500 Reason For Taking VItal Signs MOY WATTS MD [facility] 06-09-2023 21:35-0500 Respiratory rate 18 /min MOY WATTS MD [facility] 06-09-2023 19:40-0500 Blood Pressure Cuff Size MOY WATTS MD [facility] 06-09-2023 19:40-0500 Blood Pressure Location MOY WATTS MD [address] [place] [address] 06-09-2023 19:40-0500 Blood Pressure Method MOY WATTS MD [address] [place] [address] 06-09-2023 19:40-0500 Body temperature 98.24 [degF] MOY WATTS MD [address] [place] [address] 06-09-2023 19:40-0500 Diastolic Blood Pressure Non-Invasive 66 mm[Hg] MOY WATTS MD [address] [place] [address] 06-09-2023 19:40-0500 Heart rate 63 /min MOY WATTS MD [address] [place] [address] 06-09-2023 19:40-0500 Reason For Taking VItal Signs MOY WATTS MD [address] [place] [address] 06-09-2023 19:40-0500 Respiratory rate 18 /min MOY WATTS MD [address] [place] [address] 06-09-2023 19:40-0500 Systolic Blood Pressure Non-Invasive 112 mm[Hg] MOY WATTS MD [address] [place] [address] 06-09-2023 19:29-0500 Heart rate 63 /min MOY WATTS MD [address] [place] [address] 06-09-2023 16:56-0500 Heart rate 66 /min MOY WATTS MD [address] [place] [address] 06-09-2023 16:04-0500 Blood Pressure Cuff Size MOY WATTS MD [address] [place] [address] 06-09-2023 16:04-0500 Blood Pressure Location MOY WATTS MD [address] [place] [address] 06-09-2023 16:04-0500 Blood Pressure Method MOY WATTS MD [address] [place] [address] 06-09-2023 16:04-0500 Body temperature 97.88 [degF] MOY WATTS MD [address] [place] [address] 06-09-2023 16:04-0500 Diastolic Blood Pressure Non-Invasive 78 mm[Hg] MOY WATTS MD [address] [place] [address] 06-09-2023 16:04-0500 Reason For Taking VItal Signs MOY WATTS MD [address] [place] [address] 06-09-2023 16:04-0500 Respiratory rate 18 /min MOY WATTS MD [address] [place] [address] 06-09-2023 16:04-0500 Systolic Blood Pressure Non-Invasive 138 mm[Hg] MOY WATTS MD [address] [place] [address] 06-09-2023 11:17-0500 Blood Pressure Cuff Size MOY WATTS MD [address] [place] [address] 06-09-2023 11:17-0500 Blood Pressure Location MOY WATTS MD [address] [place] [address] 06-09-2023 11:17-0500 Blood Pressure Method MOY WATTS MD [address] [place] [address] 06-09-2023 11:17-0500 Body temperature 97.88 [degF] MOY WATTS MD [address] [place] [address] 06-09-2023 11:17-0500 Diastolic Blood Pressure Non-Invasive 64 mm[Hg] MOY WATTS MD [address] [place] [address] 06-09-2023 11:17-0500 Systolic Blood Pressure Non-Invasive 126 mm[Hg] MOY WATTS MD [address] [place] [address] 06-09-2023 08:54-0500 Heart rate 66 /min MOY WATTS MD [address] [place] [address] 06-08-2023 23:49-0500 Mean blood pressure 77 mm[Hg] MOY WATTS MD [address] [place] [address] 06-08-2023 17:50-0500 Heart rate 65 /min MOY WATTS MD [address] [place] [address] 06-08-2023 14:06-0500 Heart rate 58 /min MOY WATTS MD [address] [place] [address] 06-08-2023 07:05-0500 Mean blood pressure 90 mm[Hg] MOY WATTS MD [address] [place] [address] 06-07-2023 13:36-0500 Body height 176 cm MOY WATTS MD [address] [place] [address] 06-07-2023 13:36-0500 Body weight 152.9 kg MOY WATTS MD [address] [place] [address] 06-07-2023 13:36-0500 Body weight 49.36 kg/m2 MOY WATTS MD [address] [place] [address] 05-05-2023 20:50-0500 Diastolic Blood Pressure Non-Invasive 79 mm[Hg] DEMI HUSTON MD [facility] 05-05-2023 20:50-0500 Heart rate 84 /min DEMI HUSTON MD [facility] 05-05-2023 20:50-0500 Respiratory rate 20 /min DEMI HUSTON MD [facility] 05-05-2023 20:50-0500 Systolic Blood Pressure Non-Invasive 132 mm[Hg] DEMI HUSTON MD [facility] 05-05-2023 17:16-0500 Body height 175.3 cm DEMI HUSTON MD [facility] 05-05-2023 17:16-0500 Body temperature 97.88 [degF] DEMI HUSTON MD [facility] 05-05-2023 17:16-0500 Body weight 144.4 kg DEMI HUSTON MD [facility] 05-05-2023 17:16-0500 Diastolic Blood Pressure Non-Invasive 88 mm[Hg] DEMI HUSTON MD [facility] 05-05-2023 17:16-0500 Heart rate 68 /min DEMI HUSTON MD [facility] 05-05-2023 17:16-0500 Respiratory rate 20 /min DEMI HUSTON MD [facility] 05-05-2023 17:16-0500 Systolic Blood Pressure Non-Invasive 142 mm[Hg] DEMI HUSTON MD [facility] 02-12-2023 07:06-0400 Body height 175.26 cm [facility] 02-12-2023 07:06-0400 Body mass index (BMI) [Ratio] 49.5 kg/m2 [facility] 02-12-2023 07:06-0400 Body temperature 97.8 [degF] [facility] 02-12-2023 07:06-0400 Body weight 152.1 kg [facility] 02-12-2023 07:06-0400 Diastolic blood pressure 101 mm[Hg] [facility] 02-12-2023 07:06-0400 Heart rate 98 /min [facility] 02-12-2023 07:06-0400 Respiratory rate 16 /min [facility] 02-12-2023 07:06-0400 SaO2% (BldA) [Mass fraction] 95 % [facility] 02-12-2023 07:06-0400 Systolic blood pressure 132 mm[Hg] [facility] 12-23-2022 07:51-0400 Diastolic Blood Pressure Non-Invasive 68 1 MOY WATTS MD [address] [place] [address] 12-23-2022 07:51-0400 Heart rate 61 /min MOY WATTS MD [address] [place] [address] 12-23-2022 07:51-0400 Respiratory rate 12 /min MOY WATTS MD [address] 12-23-2022 07:51-0400 Systolic Blood Pressure Non-Invasive 106 1 MOY WATTS MD [address] 12-23-2022 07:39-0400 Diastolic Blood Pressure Non-Invasive 60 1 MOY WATTS MD [address] [place] [address] 12-23-2022 07:39-0400 Heart rate 64 /min MOY WATTS MD [facility] 12-23-2022 07:39-0400 Respiratory rate 20 /min MOY WATTS MD [address] [place] [address] 12-23-2022 07:39-0400 Systolic Blood Pressure Non-Invasive 97 1 MOY WATTS MD [address] [place] [address] 12-23-2022 07:34-0400 Diastolic Blood Pressure Non-Invasive 59 1 MOY WATTS MD [facility] 12-23-2022 07:34-0400 Heart rate 62 /min MOY WATTS MD [address] [place] [address] 12-23-2022 07:34-0400 Respiratory rate 16 /min MOY WATST MD [address] [place] [address] 12-23-2022 07:34-0400 Systolic Blood Pressure Non-Invasive 74 1 MOY WATTS MD [address] [place] [address] 12-23-2022 07:24-0400 Body temperature 97.34 [degF] MOY WATTS MD [address] [place] [address] 12-23-2022 07:20-0400 Heart rate 73 /min MOY WATTS MD [facility] 12-23-2022 07:20-0400 Respiratory Rate - Anes 22 br/min MOY WATTS MD [facility] 12-23-2022 07:15-0400 Heart rate 91 /min MOY WATTS MD [facility] 12-23-2022 07:15-0400 Respiratory Rate - Anes 18 br/min MOY WATTS MD [address] [place] [address] 12-23-2022 06:37-0400 Body height 175.3 cm MOY WATTS MD [address] [place] [address] 12-23-2022 06:34-0400 Body height 175.3 cm MOY WATTS MD [facility] 12-23-2022 06:34-0400 Body temperature 95.54 [degF] MOY WATTS MD [facility] 12-23-2022 06:34-0400 Body weight 144 kg MOY WATTS MD [facility] 10-27-2022 06:49-0400 Body temperature 97.7 [degF] DR OLLIE BROOKE MD [facility] 10-27-2022 06:49-0400 Diastolic Blood Pressure Non-Invasive [address] OLLIE BROOKE MD [facility] 10-27-2022 06:49-0400 Heart rate 103 /min DR OLLIE BROOKE MD [facility] 10-27-2022 06:49-0400 Respiratory rate 22 /min DR OLLIE BROOKE MD [facility] 10-27-2022 06:49-0400 Systolic Blood Pressure Non-Invasive [address] OLLIE BROOKE MD [facility] 10-27-2022 06:14-0400 Body temperature 98.06 [degF] DR OLLIE BROOKE MD [facility] 10-27-2022 06:14-0400 Diastolic Blood Pressure Non-Invasive [address] OLLIE BROOKE MD [facility] 10-27-2022 06:14-0400 Heart rate 105 /min DR OLLIE BROOKE MD [facility] 10-27-2022 06:14-0400 Respiratory rate 22 /min DR OLLIE BROOKE MD [facility] 10-27-2022 06:14-0400 Systolic Blood Pressure Non-Invasive [address] OLLIE BROOKE MD [facility] 10-27-2022 05:05-0400 Body height 175.[address] OLLIE BROOKE MD [facility] 10-27-2022 05:05-0400 Body temperature 98.06 [degF] DR OLLIE BROOKE MD [facility] 10-27-2022 05:05-0400 Body weight [address] OLLIE BROOKE MD [facility] 10-27-2022 05:05-0400 Diastolic Blood Pressure Non-Invasive [address] OLLIE BROOKE MD [facility] 10-27-2022 05:05-0400 Heart rate 88 /min DR OLLIE BROOKE MD [facility] 10-27-2022 05:05-0400 Respiratory rate 22 /min DR OLLIE BROOKE MD [facility] 10-27-2022 05:05-0400 Systolic Blood Pressure Non-Invasive [address] OLLIE BROOKE MD [facility] 10-25-2022 01:00-0400 Heart rate 99 /min DEMI HUSTON MD [facility] 10-25-2022 01:00-0400 Systolic Blood Pressure Non-Invasive 139 1 DEMI HUSTON MD [facility] 10-25-2022 00:00-0400 Diastolic Blood Pressure Non-Invasive 94 1 DEMI HUSTON MD [facility] 10-25-2022 00:00-0400 Heart rate 102 /min DEMI HUSTON MD [facility] 10-25-2022 00:00-0400 Respiratory rate 18 /min DEMI HUSTON MD [facility] 10-25-2022 00:00-0400 Systolic Blood Pressure Non-Invasive 132 1 DEMI HUSTON MD [facility] 10-24-2022 23:21-0400 Body height 175.3 cm DEMI HUSTON MD [facility] 10-24-2022 23:21-0400 Body temperature 98.24 [degF] DEMI HUSTON MD [facility] 10-24-2022 23:21-0400 Body weight 139 kg DEMI HUSTON MD [facility] 10-24-2022 23:21-0400 Diastolic Blood Pressure Non-Invasive 99 1 DEMI HUSTON MD [facility] 10-24-2022 23:21-0400 Heart rate 105 /min DEMI HUSTON MD [facility] 10-24-2022 23:21-0400 Respiratory rate 19 /min DEMI HUSTON MD [facility] 10-24-2022 23:21-0400 Systolic Blood Pressure Non-Invasive 146 1 DEMI HUSTON MD [facility] 10-23-2022 10:51-0400 Diastolic blood pressure 76 mm[Hg] [facility] 10-23-2022 10:51-0400 Heart rate 73 /min [facility] 10-23-2022 10:51-0400 Respiratory rate 15 /min [facility] 10-23-2022 10:51-0400 SaO2% (BldA) [Mass fraction] 98 % [facility] 10-23-2022 10:51-0400 Systolic blood pressure 148 mm[Hg] [facility] 10-23-2022 05:58-0400 Body height 175.26 cm [facility] 10-23-2022 05:58-0400 Body mass index (BMI) [Ratio] 47.7 kg/m2 [facility] 10-23-2022 05:58-0400 Body temperature 97.6 [degF] [facility] 10-23-2022 05:58-0400 Body weight 146.8 kg [facility] 07-15-2022 21:40-0500 Diastolic Blood Pressure Non-Invasive 85 1 JEREMIE MCCORMACK MD [facility] 07-15-2022 21:40-0500 Heart rate 72 /min JEREMIE MCCORMACK MD [facility] 07-15-2022 21:40-0500 Respiratory rate 18 /min JEREMIE MCCORMACK MD [facility] 07-15-2022 21:40-0500 Systolic Blood Pressure Non-Invasive 148 1 JEREMIE MCCORMACK MD [facility] 07-15-2022 21:10-0500 Reason For Taking VItal Signs JEREMIE MCCORMACK MD [facility] 07-15-2022 20:42-0500 Body temperature 98.06 [degF] JEREMIE MCCORMACK MD [facility] 07-15-2022 20:42-0500 Diastolic Blood Pressure Non-Invasive 95 1 JEREMIE MCCORMACK MD [facility] 07-15-2022 20:42-0500 Heart rate 81 /min JEREMIE MCCORMACK MD [facility] 07-15-2022 20:42-0500 Respiratory rate 18 /min JEREMIE MCCORMACK MD [facility] 07-15-2022 20:42-0500 Systolic Blood Pressure Non-Invasive 149 1 JEREMIE MCCORMACK MD [facility] 07-11-2022 08:21-0500 Body height 175.3 cm MALORIE PEGUERO MD [facility] 07-11-2022 08:21-0500 Body temperature 97.7 [degF] MALORIE PEGUERO MD [facility] 07-11-2022 08:21-0500 Body weight 148.6 kg MALORIE PEGUERO MD [facility] 07-11-2022 08:21-0500 Diastolic Blood Pressure Non-Invasive 80 1 MALORIE PEGUERO MD [facility] 07-11-2022 08:21-0500 Heart rate 88 /min MALORIE PEGUERO MD [facility] 07-11-2022 08:21-0500 Respiratory rate 24 /min MALORIE PEGUERO MD [facility] 07-11-2022 08:21-0500 Systolic Blood Pressure Non-Invasive 150 1 MALORIE PEGUERO MD [facility] Encounters Encounter Date Encounter Type Care Provider Facility Start: 12-23-2024 End: 12-26-2024 Evaluation and management of inpatient GIRMA CORINE GALLEGO-SHAWN Facility:A Start: 12-21-2024 Non-patient / Non-visit Dr. Farzad Camilo MD -[facility] Work Phone: Start: 12-20-2024 End: 12-21-2024 ambulatory Yaz Dee Facility:[facility] Start: 12-20-2024 End: 12-21-2024 Evaluation and management of inpatient Dr. Yaz Dee MD [facility] Work Phone: Start: 12-20-2024 End: 12-21-2024 observation encounter Girma Correa P[facility]ER[facility]C Work Phone: -[facility] Start: 12-20-2024 ambulatory Austin Estrada Facility:[facility] Start: 12-20-2024 Non-patient / Non-visit Dr. Austin Estrada MD -[facility] Start: 12-19-2024 End: 12-20-2024 Emergency department patient visit Girma Correa POURER[facility]C Work Phone: -Emergency Department Work Phone: Start: 12-10-2024 End: 12-13-2024 Evaluation and management of inpatient DELORES MURO DO [facility] Start: 12-04-2024 End: 12-04-2024 Emergency department patient visit JEREMIE MCCORMACK MD [facility] Start: 11-24-2024 End: 11-28-2024 Evaluation and management of inpatient DR SONNY MAX MD [facility] Start: 11-24-2024 End: 11-24-2024 Emergency department patient visit CIRILO CHRISTIANSONBaljinder DO [facility] Start: 11-06-2024 ambulatory Dolly Siddiqui ty:[facility] Start: 11-06-[address] Dolly Marino MD -[facility] Start: 11-04-2024 End: 11-04-2024 ambulatory Girma Correa POURER Facility:[facility] Start: 11-04-2024 End: 11-04-[address] Dolly Marino MD -[facility] Start: 11-04-[address] Dolly Marino MD [facility] Start: 10-30-2024 ambulatory Dolly Asyaa OLS Facili ty:[facility] Start: 10-30-[address] Dolly Marino MD [facility] Start: 10-28-2024 ambulatory Dolly Asyaa OLS Facili ty:[facility] Start: 10-28-[address] Dolly Marino MD -[facility] Start: 10-24-2024 ambulatory Dolly Asyaa OLS Facili ty:[facility] Start: 10-24-[address] Dolly Marino MD [facility] Start: 10-16-2024 End: 10-23-2024 Evaluation and management of inpatient NANI QUINTANA DO [facility] Start: 10-16-2024 End: 10-16-2024 Emergency department patient visit JAKE MAXWELL [facility] Start: 10-02-2024 End: 10-04-2024 Evaluation and management of inpatient DR ROBERT SCHMITZ MD [facility] Start: 10-02-2024 End: 10-02-2024 Emergency department patient visit DELORES JINA DO [facility] Start: 09-05-2024 ambulatory GIRMA CORREA [employer] Facility:[facility] Start: 08-29-2024 End: 08-29-2024 Emergency department patient visit GIRMA CORREA INSTRUMENT DESIGN[employer] Facility:[facility] Start: 08-27-2024 End: 08-27-2024 ambulatory GIRMA CORREA INSTRUMENT DESIGNER[employer] [facility] Start: 08-13-2024 End: 08-13-2024 Emergency department patient visit DR WILNER JOE MD Facility:[facility] Start: 05-14-2024 End: 05-14-2024 ambulatory GIRMA CORREA INSTRUMENT DESIGNER[employer] Facility:[facility] Start: 05-14-2024 End: 05-14-2024 Patient encounter procedure GIRMA CORREA INSTRUMENT DESIGNER[employer] [facility] Start: 03-25-2024 ambulatory GIRMA CORREA INSTRUMENT DESIGNER[employer]ING [employer] Facility:[facility] Start: 03-25-2024 End: 03-29-2024 ambulatory GIRMA CORREA INSTRUMENT DESIGNER[employer]ING [employer] Facility:[facility] Start: 03-25-2024 End: 03-29-2024 Outreach Lab HELEN YANES INSTRUMENT DESIGNER[employer]ING [employer] [facility] Start: 02-16-2024 End: 02-16-2024 ambulatory GIRMA CORREA INSTRUMENT DESIGNER[employer] [facility] Start: 02-16-2024 End: 02-16-2024 Patient encounter procedure GIRMA CORREA INSTRUMENT DESIGNER[employer] [facility] Start: 02-12-2024 End: 02-12-2024 ambulatory GIRMA CORREA INSTRUMENT DESIGNER[employer] [facility] Start: 02-12-2024 End: 02-12-2024 Patient encounter procedure GIRMA CORREA INSTRUMENT DESIGN[employer] [facility] Start: 01-31-2024 End: 02-01-2024 Evaluation and management of inpatient GIRMA CORREA Facility:[facility] Start: 01-30-2024 End: 01-31-2024 Emergency department patient visit DR SAMY JONES MD [facility] Start: 10-11-2023 End: 10-11-2023 ambulatory [facility] Start: 08-22-2023 End: 08-22-2023 ambulatory GIRMA CORREA Facility:[facility] Start: 08-22-2023 End: 08-22-2023 Patient encounter procedure GIRMA CORREA INSTRUMENT DESIGNER[employer]SUPERVISING [employer] [facility] Start: 08-09-2023 End: 08-09-2023 Emergency department patient visit DR OLLIE BROOKE MD [facility] Start: 08-08-2023 End: 08-12-2023 ambulatory GIRMA CORREA Facility:[facility] Start: 08-08-2023 End: 08-12-2023 Outreach Lab GIRMA CORREA INSTRUMENT DESIGNER[employer]SUPERVISING [employer] [facility] Start: 08-08-2023 End: 08-08-2023 ambulatory GIRMA PRISCILLAAJ Facility:[facility] Start: 06-13-2023 End: 06-13-2023 Emergency department patient visit DEMI HUSTON MD [facility] Start: 06-07-2023 End: 06-09-2023 Evaluation and management of inpatient MOY WATTS MD [facility] Start: 05-05-2023 End: 05-05-2023 Emergency department patient visit DEMI HUSTON MD [facility] Start: 05-03-2023 ambulatory JAD Coombs Facility:A Start: 04-03-2023 End: 04-03-2023 ambulatory GIRMA LORAJ Facility:[facility] Start: 04-03-2023 End: 04-03-2023 Patient encounter procedure JONNY HOFF INSTRUMENT DESIGNER-SUPERVISING FI[employer] MARSHAL [facility] Start: 03-22-2023 End: 03-22-2023 ambulatory GIRMA CORREA Facility:[facility] Start: 03-14-2023 ambulatory GIRMA LORSON Facility :[facility] Start: 02-22-2023 ambulatory GIRMA PRISCILLASON Facility :[facility] Start: 02-12-2023 End: 02-12-2023 Emergency department patient visit [facility] Work Phone: Start: 02-01-2023 End: 02-01-2023 Patient encounter procedure GIRMA CORREA INSTRUMENT DESIGNER-SUPERVISING [employer]SHAL [facility] Start: 12-23-2022 End: 12-23-2022 Minor Procedure MOY WATTS MD [facility] Start: 11-11-2022 End: 11-11-2022 Patient encounter procedure MOY WATTS MD [facility] Start: 10-27-2022 End: 10-27-2022 Emergency department patient visit DR OLLIE BROOKE MD [facility] Start: 10-24-2022 End: 10-25-2022 Emergency department patient visit DEMI HUSTON MD [facility] Start: 10-23-2022 End: 10-23-2022 Emergency department patient visit [facility] Start: 07-15-2022 End: 07-15-2022 Emergency department patient visit JEREMIE MCCORMACK MD [facility] Start: 07-11-2022 End: 07-11-2022 Emergency department patient visit MALORIE PEGUERO MD [facility] Start: 07-05-2022 End: 07-05-2022 ambulatory [facility] Start: 04-12-2022 End: 04-12-2022 ambulatory [facility] Start: 03-11-2022 ambulatory [facility] Facility: [facility] Start: 01-12-2022 End: 01-12-2022 ambulatory [facility] Start: 08-24-2021 ambulatory [facility] Start: 08-17-2021 End: 08-18-2021 ambulatory [facility] Start: 08-02-2021 ambulatory [facility] Procedures Date Procedure Procedure Detail Performing Clinician Start: 12-21-2024 Estimated creatinine clearance Girma Correa [employer] Work Phone: Start: 12-20-2024 Estimated creatinine clearance Girma Correa [employer] Work Phone: Start: 12-20-2024 Plain x-ray of hand Gracie soniacoral Correa [employer] Work Phone: Start: 12-20-2024 CT angiography of ch est with contrast Girma Correa [employer] Work Phone: Start: 12-19-2024 Plain chest X-ray Aura Correa [facility] Work Phone: Start: 12-19-2024 D-dimer assay, quantitative Girma Correa [employer] Work Phone: Comment on above: D-Dimer ELEVATED (>0 .49): Additional studies and clinicalassessments are indicated to conclude diagnosis of:Deep Vein Thrombosis (DVT) or Pulmonary Embolism (PE)CRITICAL VALUE CALLED TO [id number]/25/25 0020 Marquez Swain.RESULTS READ BACK BY SAME. Start: 12-19-2024 Estimated creatinine clearance Girma Correa [employer] Work Phone: Start: 10-28-2024 Vitamin D, 25-hydrox y measurement Girma Correa [employer] Work Phone: Comment on above: Vitamin D StatusDefi ciency: <20 ng/mL (50nmol/L)Insufficiency: 20-30 ng/mL (50-75 nmol/L)Sufficiency: 30-100 ng/mL (75-250 nmol/L)Toxicity: >100 ng/mL (>250 nmol/L) Start: 03-25-2024 Claudia BALDERAS INSTRUMENT DESIGNER-SUPERVISING FIRE MARSHAL Comment on above: excision of multilob ulated lipomatous mass right forearm Start: 01-31-2024 Echocardiography CHUN CORREA [employer]STRUMENT DES[employer] Start: 02-12-2023 SARS-CoV-2 & FLU Ant igen (Rapid) Start: 02-12-2023 Viral antigen assay Start: 02-12-2023 Plain chest X-ray Start: 12-23-2022 Cardioversion JAD WATTS MD Start: 11-11-2022 Echocardiography JONNY SKINNERBIN [employer] Comment on above: 1. Left ventricle: T [...] Treatment Date Care Activity Detail Author Start: 12-21-2024 Oxygen therapy [facility] Start: 12-21-2024 Patient discharge [facility] Start: 12-21-2024 Inhalation therapy procedure [facility] Start: 12-20-2024 Assessment of risk o f venous thromboembolism [facility] Start: 12-20-2024 Care regimes management [facility] Start: 12-20-2024 Consultation [facility] Start: 12-20-2024 Elevation of affected extremity [facility] Start: 12-20-2024 Insertion of cathete r into peripheral vein [facility] Start: 12-20-2024 Measuring intake and output [facility] Start: 12-20-2024 Notification of physician [facility] Start: 12-20-2024 Providing care accor ding to standard [facility] Start: 12-20-2024 Provision of activity privileges [facility] Start: 12-20-2024 Referral to occupati onal therapist [facility] Start: 12-20-2024 Referral to service [facility] Start: 12-20-2024 End: 12-20-2024 [facility] Start: 12-20-2024 Following clinical p athway protocol [facility] Start: 12-20-2024 Verification routine [facility] Start: 12-20-2024 Admission procedure [facility] Start: 12-20-2024 Hospital admission, emergency, from emergency room, medical nature [facility] Start: 12-20-2024 Elevation of affected extremity [facility] Start: 12-20-2024 [facility] Start: 12-20-2024 [facility] Start: 12-20-2024 Patient referral to dietitian [facility] Start: 12-19-2024 [facility] Start: 10-23-2022 [facility] Patient Education [facility] Work Phone: Patient referral [facility] Work Phone: Troponin T.cardiac [ Mass/volume] in Serum or Plasma by High sensitivity method [facility] Immunizations Immunization Date Immunization Notes Care Provider Fa cility 04-12-2022 influenza virus vaccine, unspecified formulation MOY WATTS MD [facility] Comment on above: Result Comment: 2023: VIS DATE: 01/01/2021 04-12-2022 pneumococcal conjugate vaccine, 13 valent MOY WATTS MD [facility] Comment on above: Result Comment: 2023: VIS DATE: 07/02/2021 09-11-2020 SARS-CoV-2 (COVID-19 ) mRNA-1273 vaccine MOY WATTS MD [facility] 08-14-2020 SARS-CoV-2 (COVID-19 ) mRNA-1274 vaccine MOY WATTS MD [facility] Payers Date Payer Category Payer Self-pay 2024 Medicaid [id number] 2024 Private Health Insurance 5e [id number] 2023 Medicaid [id number] 1971 Unknown [id number] 2.16.8 40.1.796712.3.579.2.1076 1971 Unknown [id number] 2.16. 840.1.259075.3.579.2.297 1971 Unknown [id number] 2.16.8 40.1.613485.3.579.2.627 1971 Unknown [id number] 2.16.8 40.1.958955.3.579.2.627 1971 Unknown [id number] 2.16.8 40.1.719921.3.579.2.627 1971 Unknown [id number] 2.16.8 40.1.015489.3.579.2.627 1971 Unknown [id number] 2.16.8 40.1.836858.3.579.2.627 1971 Unknown [id number] 2.16.8 40.1.992285.3.579.2.627 1971 Unknown [id number] 2.16.8 40.1.420734.3.579.2.627 1971 Unknown [id number] 2.16.8 40.1.072012.3.579.2.627 1971 Unknown [id number] 2.16.8 40.1.141660.3.579.2.627 1971 Unknown [id number] 2.16.8 40.1.714891.3.579.2.627 1971 Unknown [id number] 2.16.8 40.1.558767.3.579.2.627 1971 Unknown [id number] 2.16.8 40.1.367473.3.579.2.627 1971 Unknown [id number] 2.16.8 40.1.973196.3.579.2.627 1971 Unknown [id number] 2.16.8 40.1.065042.3.579.2.7 1971 Unknown [id number] 2.16.8 40.1.115270.3.579.2.651 1971 Unknown [id number] 2.16. 840.1.023886.3.579.2. 1971 Unknown [id number] 2.16. 840.1.097730.3.579.2.627 1971 Unknown [id number] 2.16. 840.1.396594.3.579.2.7 1971 Unknown [id number] 2.16.8 40.1.344252.3.579.2.627 1971 Unknown [id number] 2.16.8 40.1.281740.3.579.2.627 1971 Unknown [id number] 2.16.8 40.1.015087.3.579.2.627 1971 Unknown [id number] 2.16.8 40.1.497773.3.579.2.627 1971 Unknown [id number] 2.16.8 40.1.584679.3.579.2.627 1971 Unknown [id number] 2.16.8 40.1.964376.3.579.2.627 1971 Unknown [id number] 2.16.8 40.1.272167.3.579.2.627 1971 Unknown [id number] 2.16.8 40.1.025154.3.579.2. 1971 Unknown [id number] .16.8 40.1.573477.3.579.2. 1971 Unknown [id number] .16.8 40.1.128216.3.579.2. 1971 Unknown [id number] .16.8 40.1.883259.3.579.2. 1971 Unknown [id number] . 840.1.996361.3.579.2. 1971 Unknown [id number] 2. 840.1.910591.3.579.2. 1971 Unknown [id number] .0.1.199932.3.579.2. 1971 Unknown [id number] 2.16.8 40.1.179021.3.579.2. 1971 Unknown [id number] .16.8 40.1.667463.3.579.2.627 Unknown [id number] Unknown [id number] 2.16.8 40.1.125082.3.579.2.443 Unknown [id number] 2.16.8 40.1.125126.3.579.2.462 Unknown [id number] 2.16.8 40.1.771714.3.579.2.462 Unknown [id number] 2.16.8 40.1.204330.3.579.2.462 Unknown [id number] 2.16.8 40.1.088082.3.579.2.462 Unknown [id number] 2.16.8 40.1.143061.3.579.2.462 Unknown [id number] 2.16.8 40.1.787931.3.579.2.462 Unknown [id number] 2.16.8 40.1.918768.3.579.2.462 Unknown [id number] 2.16.8 40.1.715522.3.579.2.462 Unknown [id number] 2.16.8 40.1.236958.3.579.2.462 Unknown [id number] 2.16.8 40.1.825690.3.579.2.462 Unknown [id number] 2.16.8 40.1.693224.3.579.2.462 Social History Date Type Detail Facility Start: 07-11-2022 End: 12-20-2024 Tobacco smoking status Ex-smoker (finding) [facility] Start: 1970 Sex Assigned At Male [facility] Start: 10-23-2022 End: 02-12-2023 Tobacco smoking status [facility] Unknown if ever smoked [facility] Tobacco Nicotine Use: sn uff. Type: Oral (Snuff, Chew). [facility] Comment on above: using NicoDerm patch Stopped chewing snuf f October 2022 Tobacco smoking status [facility] Start: 06-07-2023 End: 08-08-2023 Tobacco smoking status Former smokeless tobacco user, quit more than 30 days ago [facility] Start: 07-11-2022 Sex Male (finding) [facility] Medical Equipment Procedure Code Equipment Code Equipment Origin al Text Equipment Identifier Dates See Instructions , 1 bottle of 100 Test once daily, # 1 EA, 11 Refill(s), Pharmacy: [facility], 177.8, cm, 11/28/23 13:54:00 EDT, Height, 151.4, kg, 11/28/23 13:54:00 EDT, Dosing Weight Start: 12-12-2023 See Instructions , qs 1 month supply Test once daily, # 1 EA, 11 Refill(s), Pharmacy: [facility], 177.8, cm, 11/28/23 13:54:00 EDT, Height, 151.4, kg, 11/28/23 13:54:00 EDT, Dosing Weight Start: 12-12-2023 See Instructions , 1 bottle of 100 Test once daily, # 1 EA, 11 Refill(s), Pharmacy: [facility], 177.8, cm, 11/28/23 13:54:00 EDT, Height, 151.4, kg, 11/28/23 13:54:00 EDT, Dosing Weight Start: 12-12-2023 See Instructions , qs 1 month supply Test once daily, # 1 EA, 11 Refill(s), Pharmacy: [facility], 177.8, cm, 11/28/23 13:54:00 EDT, Height, 151.4, kg, 11/28/23 13:54:00 EDT, Dosing Weight Start: 12-12-2023 See Instructions , 1 bottle of 100 Test once daily, # 1 EA, 11 Refill(s), Pharmacy: [facility], 177.8, cm, 11/28/23 13:54:00 EDT, Height, 151.4, kg, 11/28/23 13:54:00 EDT, Dosing Weight Start: 12-12-2023 See Instructions , qs 1 month supply Test once daily, # 1 EA, 11 Refill(s), Pharmacy: [facility], 177.8, cm, 11/28/23 13:54:00 EDT, Height, 151.4, kg, 11/28/23 13:54:00 EDT, Dosing Weight Start: 12-12-2023 See Instructions , 1 bottle of 100 Test once daily, # 1 EA, 11 Refill(s), Pharmacy: [facility], 177.8, cm, 11/28/23 13:54:00 EDT, Height, 151.4, kg, 11/28/23 13:54:00 EDT, Dosing Weight Start: 12-12-2023 See Instructions , qs 1 month supply Test once daily, # 1 EA, 11 Refill(s), Pharmacy: [facility], 177.8, cm, 11/28/23 13:54:00 EDT, Height, 151.4, kg, 11/28/23 13:54:00 EDT, Dosing Weight Start: 12-12-2023 See Instructions , 1 bottle of 100 Test once daily, # 1 EA, 11 Refill(s), Pharmacy: [facility], 177.8, cm, 11/28/23 13:54:00 EDT, Height, 151.4, kg, 11/28/23 13:54:00 EDT, Dosing Weight Start: 12-12-2023 See Instructions , qs 1 month supply Test once daily, # 1 EA, 11 Refill(s), Pharmacy: [facility], 177.8, cm, 11/28/23 13:54:00 EDT, Height, 151.4, kg, 11/28/23 13:54:00 EDT, Dosing Weight Start: 12-12-2023 See Instructions , 1 bottle of 100 Test once daily, # 1 EA, 11 Refill(s), Pharmacy: [facility], 177.8, cm, 11/28/23 13:54:00 EDT, Height, 151.4, kg, 11/28/23 13:54:00 EDT, Dosing Weight Start: 12-12-2023 See Instructions , qs 1 month supply Test once daily, # 1 EA, 11 Refill(s), Pharmacy: [facility], 177.8, cm, 11/28/23 13:54:00 EDT, Height, 151.4, kg, 11/28/23 13:54:00 EDT, Dosing Weight Start: 12-12-2023 Extremity Director Biologics al Fixator Application L Unknown 10/17/24 Unknown Unknown FDA Start: 10-17-2024 Extremity Director Biologics al Fixator Application L Unknown 10/17/24 Unknown Unknown FDA Start: 10-17-2024 Extremity Director Biologics al Fixator Application L Unknown 10/17/24 Unknown Unknown FDA Start: 10-17-2024 Extremity Director Biologics al Fixator Application L Unknown 10/17/24 Unknown Unknown FDA Start: 10-17-2024 Extremity Director Biologics al Fixator Application L Unknown 10/17/24 Unknown Unknown FDA Start: 10-17-2024 Extremity Director Biologics al Fixator Application L Unknown 10/17/24 Unknown Unknown FDA Start: 10-17-2024 Extremity Director Biologics al Fixator Application L Unknown 10/17/24 Unknown Unknown FDA Start: 10-17-2024 Extremity Director Biologics al Fixator Application L Unknown 10/17/24 Unknown Unknown FDA Start: 10-17-2024 Extremity Director Biologics al Fixator Application L Unknown 10/17/24 Unknown Unknown FDA Start: 10-17-2024 Extremity Director Biologics al Fixator Application L Unknown 10/17/24 Unknown Unknown FDA Start: 10-17-2024 Extremity Director Biologics al Fixator Application L Unknown 10/17/24 Unknown Unknown FDA Start: 10-17-2024 Extremity Director Biologics al Fixator Application L Unknown 10/17/24 Unknown Unknown FDA Start: 10-17-2024 Extremity Director Biologics al Fixator Application L Unknown 10/17/24 Unknown Unknown FDA Start: 10-17-2024 Extremity Director Biologics al Fixator Application L Unknown 10/17/24 Unknown Unknown FDA Start: 10-17-2024 Extremity Director Biologics al Fixator Application L Unknown 10/17/24 Unknown Unknown FDA Start: 10-17-2024 Extremity Director Biologics al Fixator Application L Unknown 10/17/24 Unknown Unknown FDA Start: 10-17-2024 Extremity Director Biologics al Fixator Application L Unknown 10/17/24 Unknown Unknown FDA Start: 10-17-2024 Extremity Director Biologics al Fixator Application L Unknown 10/17/24 Unknown Unknown FDA Start: 10-17-2024 Extremity Director Biologics al Fixator Application L Unknown 10/17/24 Unknown Unknown FDA Start: 10-17-2024 Extremity Director Biologics al Fixator Application L Unknown 10/17/24 Unknown Unknown FDA Start: 10-17-2024 Extremity Director Biologics al Fixator Application L Unknown 10/17/24 Unknown Unknown FDA Start: 10-17-2024 Extremity Director Biologics al Fixator Application L Unknown 10/17/24 Unknown Unknown FDA Start: 10-17-2024 Extremity Director Biologics al Fixator Application L Unknown 10/17/24 Unknown Unknown FDA Start: 10-17-2024 Extremity Director Biologics al Fixator Application L Unknown 10/17/24 Unknown Unknown FDA Start: 10-17-2024 Extremity Director Biologics al Fixator Application L Unknown 10/17/24 Unknown Unknown FDA Start: 10-17-2024 Extremity Director Biologics al Fixator Application L Unknown 10/17/24 Unknown Unknown FDA Start: 10-17-2024 Extremity Director Biologics al Fixator Application L Unknown 10/17/24 Unknown Unknown FDA Start: 10-17-2024 Extremity Director Biologics al Fixator Application L Unknown 10/17/24 Unknown Unknown FDA Start: 10-17-2024 Extremity Director Biologics al Fixator Application L Unknown 10/17/24 Unknown Unknown FDA Start: 10-17-2024 Extremity Director Biologics al Fixator Application L Unknown 10/17/24 Unknown Unknown FDA Start: 10-17-2024 Extremity Director Biologics al Fixator Application L Unknown 10/17/24 Unknown Unknown FDA Start: 10-17-2024 Extremity Director Biologics al Fixator Application L Unknown 10/17/24 Unknown Unknown FDA Start: 10-17-2024 Extremity Director Biologics al Fixator Application L Unknown 10/17/24 Unknown Unknown FDA Start: 10-17-2024 Extremity Director Biologics al Fixator Application L Unknown 10/17/24 Unknown Unknown FDA Start: 10-17-2024 Extremity Director Biologics al Fixator Application L Unknown 10/17/24 Unknown Unknown FDA Start: 10-17-2024 Extremity Director Biologics al Fixator Application L Unknown 10/17/24 Unknown Unknown FDA Start: 10-17-2024 Functional Status Date Assessment Result Facility 12-21-2024 Functional status Activity Abili ty Unable to Assess [facility] Work Phone: 10-04-2024 Functional Status Room located n ear nursing station, Door open, Bathroom light on, Non-Slip footwear, Room check performed [facility] 10-04-2024 Functional Status [facility] 10-04-2024 Functional Status [facility] 10-04-2024 Functional Status Breakfast Percent 80 [facility] 10-04-2024 Functional Status [facility] 10-03-2024 Functional Status Done [facility] 10-03-2024 Functional Status Sequential Com pression Device bilateral knee high removed/off [facility] 10-02-2024 Functional Status ID band on, Call device within reach, Bed in low position [facility] 02-01-2024 Functional Status Room check performed [facility] 02-01-2024 Functional Status [facility] 02-01-2024 Functional Status [facility] 02-01-2024 Functional Status Maintained [facility] 01-31-2024 Functional Status [facility] 01-31-2024 Functional Status 7pm-7am [facility] 01-31-2024 Functional Status Living Situati on Lives with family [facility] 01-31-2024 Functional Status Skin Care Prev entative Intervention(s) heel(s)s elevated, padded oxygen tubing, turn and position system [facility] 01-31-2024 Functional Status [facility] 01-31-2024 [facility] Functional Status Standard Safet y ID band on, Call device within reach, Bed in low position, Wheels locked, Upper/Half-Length side-rails up, personal items within reach, Bedside Cart Locked, Visitor at bedside [facility] 08-09-2023 Functional Status Awake, Resting [facility] 06-13-2023 Functional Status ID band on, Call device within reach [facility] 06-09-2023 Functional Status Room check performed [facility] 06-09-2023 [facility] Status [facility] 06-09-2023 Functional Status [facility] 06-08-2023 Functional Status Home independe ntly, Lives with significant other [facility] 06-08-2023 Functional Status Skin Care Prev entative Intervention(s) padded oxygen tubing [facility] 06-08-2023 Functional Status bilateral knee high removed/off [facility] 06-07-2023 Functional Status Sensory Deficits None [facility] 05-05-2023 Functional Status Assistive Device None [facility] 05-05-2023 Functional Status Standard Safet y ID band on, Call device within reach, Bed in low position, Wheels locked, Visitor at bedside [facility] 12-23-2022 Functional Status Ambulating in room, Awake [facility] 12-23-2022 [facility] Functional Status Room check performed [facility] 10-27-2022 [facility] 10-25-2022 Functional Status Independent [facility] 10-24-2022 Functional Status Standard Safet y ID band on, Call device within reach, Bed in low position, Wheels locked, Upper/Half-Length side-rails up, personal items within reach, Visitor at bedside [facility] 07-15-2022 Functional Status Room check performed [facility] 07-11-2022 Functional Status [facility] Mental Status Date Assessment Result Facility 12-20-2024 Cognitive function Appropriate;Cooperativ e [facility] Work Phone: 12-19-2024 Cognitive function Voice/Name [facility] Work Phone: 10-04-2024 Mental Status Oriented x 4 [facility] 10-04-2024 Mental Status [facility] 10-04-2024 Mental Status [facility] 10-02-2024 Mental Status Orientation Oriented x 4 [facility] 02-01-2024 Mental Status Orientation Oriented x 4 [facility] 02-01-2024 Mental Status [facility] 01-31-2024 Mental Status [facility] 01-31-2024 Mental Status [facility] 01-30-2024 Mental Status Orientation Oriented x 4 [facility] 08-09-2023 Mental Status Oriented x 4 [facility] 06-13-2023 Mental Status Orientation Oriented x 4 [facility] 06-09-2023 Mental Status Oriented x 4 [facility] 06-09-2023 Mental Status [facility] 06-09-2023 Mental Status [facility] 06-08-2023 Mental Status [facility] 05-05-2023 Mental Status Orientation Oriented x 4 [facility] 05-05-2023 Mental Status [facility] 12-23-2022 Mental Status Oriented x 4 [facility] 10-27-2022 Mental Status Orientation Oriented x 4 [facility] 10-27-2022 Mental Status [facility] 10-25-2022 Mental Status Orientation Oriented x 4 [facility] 10-24-2022 Mental Status [facility] 10-23-2022 Cognitive function Voice/Name Taye Guo [facility] Work Phone: 07-15-2022 Mental Status Oriented x 4 [facility] 07-11-2022 Mental Status Oriented x 4 [facility] Clinical Notes 02-07-2022 to 12-26-2024 Note Date & Type Note Facility 12-26-2024 Hospital Discharge instructions Patient Education 12/26/2024 15:53:13 Radiology- PICC Line 03/08/2024(CUSTOM) HIKO PICC Line Discharge Instructions Interventional Radiology [facility] [address] [place] [address] A PICC (peripherally inserted central catheter) is a exterminator helper termite IV access device. A catheter is inserted in a vein with the catheter tip ending in a large vein close to the heart. It will allow for frequent intravenous medication administration or blood draws without starting an IV each time. Please follow the instructions below to reduce the chance of experiencing complications. Diet: Resume your normal diet as tolerated. Activity: No swimming, tub bathing, or hot tubs while the PICC line is in place. You may shower as long as the dressing completely covered and protected from getting wet. Wrap the arm around the PICC line with linda wrap and tape securely on both ends. There are also sleeves sold at some drug stores that can be used to protect the PICC line while showering. The arm with the PICC line may be used as you normally would. Normal use, in fact increases blood circulation in that arm. This aids in carrying medications to the heart for systemic circulation. However, strenuous work or repetitive motion should all be avoided (for example: no working out, lifting weights, golfing, etc.). Make sure not to pull on the catheters. Care should be taken to secure the catheters to the arm to prevent them from getting caught or pulled. Dressing: A dry, secure, clean, and intact dressing is essential to prevent catheter migration and infection. The dressing should be changed weekly (or sooner if loose, soiled or wet) by an individual who has been trained in proper dressing changes. Please read the accompanying handout FAQs about Catheter-Associated Bloodstream Infections for more important information on preventing PICC line infections. The PICC line will need to be flushed every week and after each use. Please speak to your primary physician to coordinate weekly flushes. Pain Control: Xlnt-rmf-rsdoxdr pain medication should be used for pain or discomfort. Please check with the physician who sent you for this procedure for their specific recommendations. If you were sedated for this procedure: Avoid alcoholic beverages for 24 hours after your procedure. Do not drive or operate heavy machinery for 24 hours after your procedure. Do not make any legal decisions for 24 hours after your procedure. Medication: Please resume on . When to seek medial care: Foul odor, pus drainage, or redness, at puncture site. Excessive bleeding from puncture site. Fever greater than 101 degrees and chills. Pain or swelling in the area the PICC line were placed. If you experience any of these issues during the first 24 hours, please follow the instruction below: 8:00 am- 5:00 pm call [phone] After 24 hours, contact the physician who ordered this procedure for you. Special Instructions: Follow Up Care 12/23/2024 17:41:25 With:GIRMA CORREA Address: [address] [place] [address]- [phone] When:1-2 days Comments:Please call the office to schedule a hospital follow up appointment. With:MAYRA MARTIN BA, MD, Infectious Disease, Infectious Disease Group Address: [facility] [id number] [address] [phone] When:Within 3 Week(s) With:NANI QUINTANA DO Orthopedic Address: [address] [place] [address]- [phone] When:Within 1 Week(s) Comments:Please call office SARA to schedule follow up appointment in 1 week for repeat XRs and skin check. [facility] 12-26-2024 Note Discharge Instructions Thank you for allowing [facility] to assist you with your healthcare needs. The following is important discharge information regarding your hospital visit. Your Care Team GIRMA CORREA Your Diagnosis CHF with cardiomyopathy History of fracture of right ankle Hypertension associated with type 2 diabetes mellitus Infection of bone of right ankle Morbid obesity with BMI of 40.0-44.9, adult Postoperative pain Shortness of breath What to do next Instructions From Your Doctor You are being discharged from the hospital with prolonged IV antibiotics. Follow-up with all providers involved in your care. Follow Up Appointments Follow Up with GIRMA CORREA When:Within 1-2 days Where:[address] [place] [address]- [phone] Additional Information: Please call the office to schedule a hospital follow up appointment. Follow Up with MAYRA MARTIN BA, MD, Infectious Disease, Infectious Disease Group When:In 3 weeks Where:[facility] [id number] [place] [place] [address]- [phone] Follow Up with NANI QUINTANA DO Orthopedic When:In 1 week Where:[address] [facility] [place] [address]- [phone] Additional Information: Please call office SARA to schedule follow up appointment in 1 week for repeat XRs and skin check. The Following Activity and Diet Have Been Ordered for You Discharge Activity - Ordered -- Other, Nonweightbearing left lower extremity, 12/24/24 17:27:00 EDT Transfer of Care Activity - Ordered -- As instructed by therapy, 12/26/24 14:46:00 EDT Transfer of Care Diet - Ordered -- Type of Diet: Regular Diet, Diet Restrictions: Renal diet, 12/26/24 14:46:00 EDT The Following Equipment Has Been Ordered for You Discharge Home Equipment Discharge Wound Care - Ordered -- Maintain splint until follow-up in clinic, 12/24/24 17:27:00 EDT Transfer of Care IV/PICC - Ordered -- Routine care per facility guidelines., 12/26/24 14:46:31 EDT Transfer of Care Wound Care - Ordered -- 12/26/24 14:46:00 EDT The Following Treatments Have Been Ordered for You Discharge Labs Transfer of Care Labwork - Ordered -- CBC, differential, CMP, ESR, CRP, Right ankle infection, Results Notify to: MAYRA MARTIN BA, MD, 6 weeks of IV cefazolin 2 g every 8 hours with end date February 04, 2025 obtain CBC, differential, CMP, ESR, CRP q. Monday while on IV antibiotics an... Discharge Radiology No qualifying data available. Other Therapies Transfer of Care OT - Ordered -- Reason for therapy: debility, 12/26/24 14:46:00 EDT Transfer of Care PT - Ordered -- Reason for therapy: debility, 12/26/24 14:46:00 EDT Post Acute Orders Transfer of Care Code Status - Ordered -- Full Code, Constant Order Transfer of Care IV/PICC - Ordered -- Routine care per facility guidelines., 12/26/24 14:46:31 EDT Transfer of Care Labwork - Ordered -- CBC, differential, CMP, ESR, CRP, Right ankle infection, Results Notify to: MAYRA MARTIN BA, MD, 6 weeks of IV cefazolin 2 g every 8 hours with end date February 04, 2025 obtain CBC, differential, CMP, ESR, CRP q. Monday while on IV antibiotics an... Transfer of Care Orders Electronically Signed By - Ordered -- 12/26/24 14:46:00 EDT, PERNELL DEWITT MD Transfer of Care Prognosis - Ordered -- [facility], Patient Aware: Yes Transfer of Care Rehab Potential - Ordered -- Rehab potential magnolia, 12/26/24 14:46:31 EDT Someone Will Contact You Regarding These Home Health Referrals No home referrals have been ordered for you. No one will call you. Allergies Contrast dye Statins myalgia Medications Please ask your primary doctor or pharmacist before taking any other medication not listed, including over the counter drugs, herbal medications, vitamins and or supplements as they may interact with your home medications. What How Much When Why Instructions Last Dose New acetaminophen-oxyCODONE (Percocet 5 mg-325 mg oral tablet) 1 tab(s) by mouth Every 6 hours as needed for for pain Postoperative pain Duration: 7 Days Pickup at [facility]/pharmacy #[id number] New ceFAZolin (CeFAZolin 2 gm IV Syringe) 20 Milliliter IV Push (INT) Every 8 hours See physical Rx in chart left by ID physician Unchanged albuterol (albuterol 2.5 mg/ 3 mL (0.083%) inhalation solution) 3 Milliliter by inhalation Every 6 hours Unchanged allopurinol (allopurinol 100 mg oral tablet) 1 tab(s) by mouth Once a day Unchanged aluminum hydroxide/ magnesium hydroxide/ simethicone (Al hydroxide/ Mg hydroxide/ simethicone 200 mg-200 mg-20 mg/ 5 mL oral suspension) 30 Milliliter by mouth Every 4 hours as needed for GI distress Unchanged amLODIPine (amLODIPine 5 mg oral tablet) 1 tab(s) by mouth Once a day (in the morning) Unchanged bempedoic acid (Nexletol 180 mg oral tablet) 1 tab(s) by mouth Once a day Unchanged bisacodyl (bisacodyl 10 mg rectal suppository) 1 suppository(ies) in the rectum Once a day as needed for as needed for constipation Unchanged cetirizine (cetirizine 10 mg oral tablet) [...] 1 cap by mouth Once a day (in the morning) Unchanged fluticasone-salmeterol (Advair Diskus 100 mcg-50 mcg/ inh inhalation powder) 1 inh by inhalation Two (2) times a day Unchanged glucagon (GlucaGen 1 mg injection) 1 Milligram Intramuscular Once as needed for Hypoglycemia Unchanged glucose (Gluco-To-Go 40% oral gel) 1 dose by mouth Once as needed for as needed for low blood sugar Unchanged guaiFENesin 10 Milliliter by mouth Every 4 hours as needed for for cough/congestion Unchanged magnesium hydroxide (Milk of Magnesia 8% oral suspension) 30 Milliliter by mouth Daily at bedtime as needed for as needed for constipation Unchanged metoprolol (Toprol-XL 100 mg oral tablet, extended release) 1 tab(s) by mouth Two (2) times a day Shortness of breath Duration: 90 Days do not crush or chew Unchanged omeprazole (omeprazole 40 mg oral delayed release capsule) 1 cap by mouth Once a day (in the morning) Unchanged potassium chloride (Potassium Chloride (Eqv-K-Tab) 20 mEq oral tablet, extended release) 1 tab(s) by mouth Once a day Take with food Unchanged pravastatin (pravastatin 40 mg oral tablet) 1 tab(s) by mouth Daily at bedtime Unchanged rivaroxaban (Xarelto 20 mg oral tablet) 1 tab(s) by mouth Daily at bedtime Unchanged sodium biphosphate-sodium phosphate (Fleet Enema 19 g-7 g/ 118 mL rectal enema) 1 Each in the rectum Once a day as needed for as needed for constipation Unchanged spironolactone (spironolactone 25 mg oral tablet) 1 tab(s) by mouth Once a day Duration: 90 Days Unchanged tiZANidine (tiZANidine 2 mg oral tablet) 1 tab(s) by mouth Every 8 hours as needed for as needed for muscle spasm Duration: 7 Days Unchanged traZODone (traZODone 100 mg oral tablet) 1 tab(s) by mouth Daily at bedtime Pharmacy Information [facility]/pharmacy #[id number]: [address], [place] [id number] [phone] What How Much When Comments Stop Taking acetaminophen (acetaminophen 325 mg oral tablet) 2 tab(s) by mouth Every 4 hours as needed for as needed for fever Stop Taking acetaminophen (acetaminophen 325 mg oral tablet) 2 tab(s) by mouth Every 4 hours as needed for as needed for pain Stop Taking acetaminophen (acetaminophen 650 mg rectal suppository) 1 suppository(ies) in the rectum Every 4 hours as needed for as needed for pain Stop Taking acetaminophen (acetaminophen 650 mg rectal suppository) 1 suppository(ies) in the rectum Every 4 hours as needed for as needed for fever Stop Taking hydroCHLOROthiazide (hydroCHLOROthiazide 50 mg oral tablet) 1 tab(s) by mouth Once a day (in the morning) Stop Taking traMADol (traMADol 50 mg oral tablet) 1 tab(s) by mouth Every 8 hours as needed for chronic pain Please take this list to your next doctor s visit. Bring all medications you take, including over the counter medications, herbals and other supplements with you to your doctor s visit. Patients and families are reminded to discard old lists and to update any records with all medication providers or retail pharmacies. Education Materials HIKO PICC Line Discharge Instructions Interventional Radiology [facility] [address] [place] [address] A PICC (peripherally inserted central catheter) is a group home IV access device. A catheter is inserted in a vein with the catheter tip ending in a large vein close to the heart. It will allow for frequent intravenous medication administration or blood draws without starting an IV each time. Please follow the instructions below to reduce the chance of experiencing complications. Diet: Resume your normal diet as tolerated. Activity: No swimming, tub bathing, or hot tubs while the PICC line is in place. You may shower as long as the dressing completely covered and protected from getting wet. Wrap the arm around the PICC line with linda wrap and tape securely on both ends. There are also sleeves sold at some drug stores that can be used to protect the PICC line while showering. The arm with the PICC line may be used as you normally would. Normal use, in fact increases blood circulation in that arm. This aids in carrying medications to the heart for systemic circulation. However, strenuous work or repetitive motion should all be avoided (for example: no working out, lifting weights, golfing, etc.). Make sure not to pull on the catheters. Care should be taken to secure the catheters to the arm to prevent them from getting caught or pulled. Dressing: A dry, secure, clean, and intact dressing is essential to prevent catheter migration and infection. The dressing should be changed weekly (or sooner if loose, soiled or wet) by an individual who has been trained in proper dressing changes. Please read the accompanying handout FAQs about Catheter-Associated Bloodstream Infections for more important information on preventing PICC line infections. The PICC line will need to be flushed every week and after each use. Please speak to your primary physician to coordinate weekly flushes. Pain Control: Bzun-exo-olgsqqg pain medication should be used for pain or discomfort. Please check with the physician who sent you for this procedure for their specific recommendations. If you were sedated for this procedure: Avoid alcoholic beverages for 24 hours after your procedure. Do not drive or operate heavy machinery for 24 hours after your procedure. Do not make any legal decisions for 24 hours after your procedure. Medication: Please resume on . When to seek medial care: Foul odor, pus drainage, or redness, at puncture site. Excessive bleeding from puncture site. Fever greater than 101 degrees and chills. Pain or swelling in the area the PICC line were placed. If you experience any of these issues during the first 24 hours, please follow the instruction below: 8:00 am- 5:00 pm call [phone] After 24 hours, contact the physician who ordered this procedure for you. Special Instructions: Additional Information VACCINATE! IT SAVES LIVES! Members of the community who have not yet received the COVID-19 vaccine and would like to receive it can visit one of [facility] vaccine clinics. There are many vaccine clinic locations within the [facility]. For locations and available times, please visit [email or web address] It is important to note that some COVID mobile vaccine clinics are held outdoors and may be canceled in rainy or stormy conditions. To learn more about pediatric vaccinations (ages 5-11), we invite you to visit the [facility] webpage. [email or web address]/pages [email or web address] [email or web address] To learn more about the COVID-19 vaccine, we invite you to visit the CDC website for a list of frequently asked questions.https://www.cdc.gov/hess virus/2019-ncov/vaccines/faq.html [facility] Patient Portal Access Instructions: Stay connected with your healthcare team and access your personal medical information anytime with the [facility] Patient Portal. Please follow the directions below to create your [facility] account: 1.Access the email account you provided upon registration to the hospital/physician office.2.Look for an invitation email from [facility].3.Open the email and access the invitation link: Accept Invitation to [facility].4.Fill in the required orr to create your account. To access your account, visit [email or web address]. Click the blue button labeled "Access Patient Portal" and then log in with the username [...] you will allow to register on the [facility] for access to your information. You can also access the [facility] Patient Portal on the [facility] frida. Simply click on "Patient Portal" and then log into your account. If you would like to receive a full copy of your medical records, please contact the [facility] Medical Records Department by calling [phone], Monday through Monday between 8 a.m. and [...] Call your local pharmacy or go to [email or web address] to find one close to you.3.Make use of household items: Use cat litter or old coffee grounds to dispose medications if other options are not available. Mix your drugs with these household products, seal them in an airtight container and throw it into the garbage. Call [facility]: [phone] to be sure your drugs can be [...] a CHART COPY. Signatures Patient Education Materials Radiology- PICC Line 03/08/2024(CUSTOM) Medication Leaflets My discharge plan and instructions have been reviewed and explained to me and I,CARLOS ALBERTO KELLEY JR understand my current condition and have read and understand these discharge instructions. I have received a written copy of the plan/instructions. If I have questions, I am aware that I should contact my doctor. 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 Signature: ___ Date/Time: Relationship to Patient: _ Witness Name/Signature: Date/Time: [facility] 12-26-2024 Procedure note VASCULAR ACCESS TEAM POST PROCEDURE NOTE PROCEDURE: Peripherally Inserted Central Catheter (PICC) INDICATION: _Long Term Antibiotics DETAILS: Consult for PICC placement received. Chart reviewed. Informed consent was obtained and verified prior to the procedure. The procedure was performed using a cap, mask, sterile gloves, sterile gown, and full-body fenestrated drape. Hand Hygiene was performed and the site was prepped with hospital approved cutaneous antisepsis. The patient was in a supine position in the hospital bed. A critical pause and confirm was performed just prior to the procedure with the patient's identity confirmed using two patient identifiers and confirming the procedure of the PICC placement. The patient was prepped and draped in the usual sterile fashion. 5 Fr. Double Lumen PICC was inserted at bedside under sterile technique. Vascular access was obtained with ultrasound guidance. All lumens were aspirated and flushed with 0.9 normal saline. Sterile needless connector caps were attached to each lumen. The PICC was fixated to the skin with a stat-lock and a sterile CHG all-in-one dressing applied. PICC flushes easily with good blood return. Patient tolerated well. PICC and CLABSI education packet provided. CUTANEOUS ANTISEPSIS: _ ChloraPrep (2% chlorhexidine gluconate and 70% v/v isopropyl alcohol) ANESTHESIA: Local subcutaneous injection using _2 mL 1% Lidocaine ACCESS VESSEL: _Right _Basilic CATHETER LENGTH: _43cm INTERNAL LENGTH: _42cm EXTERNAL LENGTH: _1cm ARM CIRC: _35cm LOT #: _[id number] COMPLICATIONS: None INSERTED BY: Deny Amin PLAN: _Picc line inserted using ECG technology with MAX- P wave achieved. _Picc line okay for use. Digitally Signed by Deny Amin RN on 12/26/2024 03:21 PM [facility] 12-26-2024 Discharge summary Date of Service 12/26/24 Discharge Diagnosis 1 - Infection of bone of right ankle (M86.9 - ICD-10-CM) 2 - History of fracture of right ankle (Z87.81 - ICD-10-CM) 3 - CHF with cardiomyopathy (I50.9 - ICD-10-CM) 4 - Hypertension associated with type 2 diabetes mellitus (E11.59 - ICD-10-CM) 5 - Morbid obesity with BMI of 40.0-44.9, adult (E66.01 - ICD-10-CM) Hospital Course 54-year-old male history of right ankle fracture status post external fixator presented with increased swelling and pain to the right ankle with workup revealing right ankle infection. He underwent surgical intervention by orthopedics 12/24 during which the right ankle spanning external fixator was removed. He tolerated the surgical intervention without complication. He was covered with broad-spectrum IV antibiotics throughout his stay. At time of discharge PICC line was recommended by infectious disease for 6 weeks of IV cefazolin 2 g every 8 hours with end date February 04, 2025 recommendations to obtain CBC, differential, CMP, ESR, CRP q. Monday while on IV antibiotics and faxed to Dr. Marshall [phone]. Allergies Contrast dye Statins myalgia Procedures Date of Service 12/24/2024 Indication/Consent Ray is a 54-year-old male who presented to [facility] ED with right ankle sprain cellulitis and surgical site infection. Patient had original injury on 10/17/2024 during which her right ankle spanning external fixator was placed for right ankle fracture dislocation. Patient tolerated procedure well and was to have it removed on 12/11/2024. However patient experienced A-fib with RVR and was in the hospital for a period of time missing his follow-up appointment. Patient was evaluated while in [facility] ED and surgical intervention was recommended to remove right ankle spanning external fixator, irrigation and debridement of pin site holes, and splint placement to right lower extremity. Patient was taken back to the OR by Dr. Donovan on 725. Preoperative Diagnosis 1. Right ankle surgical site infection Postoperative Diagnosis same Operation 1. Right ankle spanning external fixator removal 2. Irrigation and debridement of pin sites holes 3. Fluoroscopic guidance interpretation 4. Application of short leg splint right lower extremity. Surgeon(s) ANA LUISA DONOVAN DO (Primary Surgeon) Grinding Operator(s) Suze Mishra DO PGY 2 Adriano Mack DO PGY1 Adriano Brooke DO PGY1 Type of Anesthesia CHANTAL CARTER DO (Stock Saw Operator) AUGUSTO BANDA (Provider) Estimated Blood Loss 5 cc Consults Consult to Anesthesia - Ordered -- 12/23/24 19:29:00 EDT, surgery pending Consult to Physician - Ordered -- 12/24/24 1:07:00 EDT, ANA LUISA DONOVAN DO, Routine, Right ankle infection Consult to Physician - Ordered -- 12/24/24 7:08:00 EDT, TE CASEY MD, Routine, ankle hardware infection Imaging Results and Diagnostics XR Fluoro 1-2 Hrs Tech Time Result Date: December 24, 2024 Verified By: TRACY PETTIT, DARNELL Spears CLINICAL STATEMENT: IMPRESSION: Intraprocedural fluoroscopic spot images as above. See separate procedurereport for more information. XR Ankle Minimum 3 Views Left Result Date: December 23, 2024 Verified By: TRACE FIERRO MD CLINICAL STATEMENT: IMPRESSION: Similar alignment of distal fibular/lateral malleolar fracture withsurrounding reparative changes. I have personally reviewed the images of this examination and agree with theresident's findings and interpretation. XR Ankle Minimum 3 Views Right Result Date: December 23, 2024 Verified By: MICK LEGGETT MD CLINICAL STATEMENT: IMPRESSION: External fixation hardware is similarly positioned. Small area of bonylucency surrounding the calcaneal hardware, which was not definitivelyidentified on prior, and can be seen with developing perihardware infection. Stable appearance of mildly displaced distal fibular spiral fracture withminimal healing changes. Soft tissue swelling surrounding the ankle. I have personally reviewed the images of this examination and agree with theresident's findings and interpretation. Physical Exam Vitals and Measurements T: 36.7 C (Oral) HR: 75 RR: 18 BP: 149/90 SpO2: 94% Weight Dosing Weight: 140 kg (12/24/24) Code Status Code Status - Ordered -- 12/23/24 21:09:00 EDT, Full Code, Constant Order Admission Date 12/23/24 Discharge Date 12/26/24 Patient Instructions You are being discharged from the hospital with prolonged IV antibiotics. Follow-up with all providers involved in your care. Medications New Prescription acetaminophen-oxyCODONE (Percocet 5 mg-325 mg oral tablet)1 tab(s) by mouth every 6 hours as needed for pain for 7 Days. Refills: 0. ceFAZolin (CeFAZolin 2 gm IV Syringe)20 Milliliter IV Push (INT) every 8 hours. See physical Rx in chart left by ID physician. Unchanged albuterol (albuterol 2.5 mg/3 mL (0.083%) inhalation solution)3 Milliliter by inhalation every 6 hours. Refills: 0. allopurinol (allopurinol 100 mg oral tablet)1 tab(s) by mouth once a day. Refills: 3. aluminum hydroxide/magnesium hydroxide/simethicone (Al hydroxide/Mg hydroxide/simethicone 200 mg-200 mg-20 mg/5 mL oral suspension)30 Milliliter by mouth every 4 hours as needed GI distress. amLODIPine (amLODIPine 5 mg oral tablet)1 tab(s) by mouth once a day (in the morning). bempedoic acid (Nexletol 180 mg oral tablet)1 tab(s) by mouth once a day. Refills: 5. bisacodyl (bisacodyl 10 mg rectal suppository)1 suppository(ies) in the rectum once a day as needed as needed for constipation. cetirizine (cetirizine 10 mg oral tablet)1 tab(s) by mouth every day for 90 Days. Refills: 3. dofetilide (Tikosyn 250 mcg oral capsule)1 cap by mouth two (2) times a day. Refills: 4. dulaglutide (Trulicity Pen 1.5 mg/0.5 mL subcutaneous solution)1.5 Milligram Subcutaneous every week for 90 Days. Refills: 3. DULoxetine (DULoxetine 20 mg oral delayed release capsule)1 cap by mouth once a day (in the morning). fluticasone-salmeterol (Advair Diskus 100 mcg-50 mcg/inh inhalation powder)1 inh by inhalation two (2) times a day. glucagon (GlucaGen 1 mg injection)1 Milligram Intramuscular once as needed Hypoglycemia. glucose (Gluco-To-Go 40% oral gel)1 dose by mouth once as needed as needed for low blood sugar. [id number] Milliliter by mouth every 4 hours as needed for cough/congestion. magnesium hydroxide (Milk of Magnesia 8% oral suspension)30 Milliliter by mouth daily at bedtime as needed as needed for constipation. metoprolol (Toprol-XL 100 mg oral tablet, extended release)1 tab(s) by mouth two (2) times a day for 90 Days. do not crush or chew. Refills: 0. omeprazole (omeprazole 40 mg oral delayed release capsule)1 cap by mouth once a day (in the morning). potassium chloride (Potassium Chloride (Eqv-K-Tab) 20 mEq oral tablet, extended release)1 tab(s) by mouth once a day. Take with food. Refills: 3. pravastatin (pravastatin 40 mg oral tablet)1 tab(s) by mouth daily at bedtime. rivaroxaban (Xarelto 20 mg oral tablet)1 tab(s) by mouth daily at bedtime. Refills: 11. sodium biphosphate-sodium phosphate (Fleet Enema 19 g-7 g/118 mL rectal enema)1 Each in the rectum once a day as needed as needed for constipation. spironolactone (spironolactone 25 mg oral tablet)1 tab(s) by mouth once a day for 90 Days. Refills: 3. tiZANidine (tiZANidine 2 mg oral tablet)1 tab(s) by mouth every 8 hours as needed as needed for muscle spasm for 7 Days. Refills: 3. traZODone (traZODone 100 mg oral tablet)1 tab(s) by mouth daily at bedtime. Refills: 3. Discontinued acetaminophen (acetaminophen 325 mg oral tablet)2 tab(s) by mouth every 4 hours as needed as needed for fever. acetaminophen (acetaminophen 325 mg oral tablet)2 tab(s) by mouth every 4 hours as needed as needed for pain. acetaminophen (acetaminophen 650 mg rectal suppository)1 suppository(ies) in the rectum every 4 hours as needed as needed for pain. acetaminophen (acetaminophen 650 mg rectal suppository)1 suppository(ies) in the rectum every 4 hours as needed as needed for fever. hydroCHLOROthiazide (hydroCHLOROthiazide 50 mg oral tablet)1 tab(s) by mouth once a day (in the morning). traMADol (traMADol 50 mg oral tablet)1 tab(s) by mouth every 8 hours as needed chronic pain. Follow Up Follow Up with GIRMA CORREA APRN-SUPER[employer]ING [employer] When:Within 1-2 days Where:[address] [place] [address] [phone] Additional Information: Please call the office to schedule a hospital follow up appointment. Follow Up with MAYRA MARTIN BA, MD, Infectious Disease, Infectious Disease Group When:In 3 weeks Where:[facility] [id number] [address] [phone] Follow Up with NANI QUINTANA DO, Orthopedic When:In 1 week Where:[address] [facility], [place] [address]- [phone] Additional Information: Please call office SARA to schedule follow up appointment in 1 week for repeat XRs and skin check. Follow Up Appointments Transfer of Care OT - Ordered -- Reason for therapy: debility, 12/26/24 14:46:00 EDT Transfer of Care PT - Ordered -- Reason for therapy: debility, 12/26/24 14:46:00 EDT Follow Up Labs/Studies Discharge Labs Transfer of Care Labwork - Ordered -- CBC, differential, CMP, ESR, CRP, Right ankle infection, Results Notify to: MAYRA MARTIN BA, MD, 6 weeks of IV cefazolin 2 g every 8 hours with end date February 04, 2025 obtain CBC, differential, CMP, ESR, CRP q. Monday while on IV antibiotics an... Discharge Studies No Follow-up Studies Discharge Diet Transfer of Care Diet - Ordered -- Type of Diet: Regular Diet, Diet Restrictions: Renal diet, 12/26/24 14:46:00 EDT Discharge Activity Transfer of Care Activity - Ordered -- As instructed by therapy, 12/26/24 14:46:00 EDT Condition on Discharge fair Discharge Disposition SNF Information Provided To patient Time Spent 50min Digitally Signed by PERNELL DEWITT MD on 12/26/2024 03:11 PM [facility] 12-26-2024 Note Discharge Instructions Thank you for allowing [facility] to assist you with your healthcare needs. The following is important discharge information regarding your hospital visit. Your Care Team GIRMA CORREA Your Diagnosis CHF with cardiomyopathy History of fracture of right ankle Hypertension associated with type 2 diabetes mellitus Infection of bone of right ankle Morbid obesity with BMI of 40.0-44.9, adult Postoperative pain Shortness of breath What to do next Instructions From Your Doctor You are being discharged from the hospital with prolonged IV antibiotics. Follow-up with all providers involved in your care. Follow Up Appointments Follow Up with GIRMA CORREA When:Within 1-2 days Where:[address] [facility] [place] [address]- [phone] Follow Up with MAYRA MARTIN BA, MD, Infectious Disease, Infectious Disease Group When:In 3 weeks Where:[facility] [place] [id number] [address]- [phone] Follow Up with NANI QUINTANA DO, Orthopedic When:In 1 week Where:[address] [facility], [place] [address]- [phone] Additional Information: Please call office SARA to schedule follow up appointment in 1 week for repeat XRs and skin check. The Following Activity and Diet Have Been Ordered for You Discharge Activity - Ordered -- Other, Nonweightbearing left lower extremity, 12/24/24 17:27:00 EDT No qualifying data available. The Following Equipment Has Been Ordered for You Discharge Home Equipment Discharge Wound Care - Ordered -- Maintain splint until follow-up in clinic, 12/24/24 17:27:00 EDT The Following Treatments Have Been Ordered for You Discharge Labs No qualifying data available. Discharge Radiology No qualifying data available. Other Therapies No qualifying data available. Post Acute Orders No qualifying data available. Someone Will Contact You Regarding These Home Health Referrals No home referrals have been ordered for you. No one will call you. Allergies Contrast dye Statins myalgia Medications Please ask your primary doctor or pharmacist before taking any other medication not listed, including over the counter drugs, herbal medications, vitamins and or supplements as they may interact with your home medications. What How Much When Why Instructions Last Dose New acetaminophen-oxyCODONE (Percocet 5 mg-325 mg oral tablet) 1 tab(s) by mouth Every 6 hours as needed for for pain Postoperative pain Duration: 7 Days Pickup at [facility]/pharmacy #[id number] New ceFAZolin (CeFAZolin 2 gm IV Syringe) 20 Milliliter IV Push (INT) Every 8 hours See physical Rx in chart left by ID physician Unchanged albuterol (albuterol 2.5 mg/ 3 mL (0.083%) inhalation solution) 3 Milliliter by inhalation Every 6 hours Unchanged allopurinol (allopurinol 100 mg oral tablet) 1 tab(s) by mouth Once a day Unchanged aluminum hydroxide/ magnesium hydroxide/ simethicone (Al hydroxide/ Mg hydroxide/ simethicone 200 mg-200 mg-20 mg/ 5 mL oral suspension) 30 Milliliter by mouth Every 4 hours as needed for GI distress Unchanged amLODIPine (amLODIPine 5 mg oral tablet) 1 tab(s) by mouth Once a day (in the morning) Unchanged bempedoic acid (Nexletol 180 mg oral tablet) 1 tab(s) by mouth Once a day Unchanged bisacodyl (bisacodyl 10 mg rectal suppository) 1 suppository(ies) in the rectum Once a day as needed for as needed for constipation Unchanged cetirizine (cetirizine 10 mg oral tablet) [...] 1 cap by mouth Once a day (in the morning) Unchanged fluticasone-salmeterol (Advair Diskus 100 mcg-50 mcg/ inh inhalation powder) 1 inh by inhalation Two (2) times a day Unchanged glucagon (GlucaGen 1 mg injection) 1 Milligram Intramuscular Once as needed for Hypoglycemia Unchanged glucose (Gluco-To-Go 40% oral gel) 1 dose by mouth Once as needed for as needed for low blood sugar Unchanged guaiFENesin 10 Milliliter by mouth Every 4 hours as needed for for cough/congestion Unchanged magnesium hydroxide (Milk of Magnesia 8% oral suspension) 30 Milliliter by mouth Daily at bedtime as needed for as needed for constipation Unchanged metoprolol (Toprol-XL 100 mg oral tablet, extended release) 1 tab(s) by mouth Two (2) times a day Shortness of breath Duration: 90 Days do not crush or chew Unchanged omeprazole (omeprazole 40 mg oral delayed release capsule) 1 cap by mouth Once a day (in the morning) Unchanged potassium chloride (Potassium Chloride (Eqv-K-Tab) 20 mEq oral tablet, extended release) 1 tab(s) by mouth Once a day Take with food Unchanged pravastatin (pravastatin 40 mg oral tablet) 1 tab(s) by mouth Daily at bedtime Unchanged rivaroxaban (Xarelto 20 mg oral tablet) 1 tab(s) by mouth Daily at bedtime Unchanged sodium biphosphate-sodium phosphate (Fleet Enema 19 g-7 g/ 118 mL rectal enema) 1 Each in the rectum Once a day as needed for as needed for constipation Unchanged spironolactone (spironolactone 25 mg oral tablet) 1 tab(s) by mouth Once a day Duration: 90 Days Unchanged tiZANidine (tiZANidine 2 mg oral tablet) 1 tab(s) by mouth Every 8 hours as needed for as needed for muscle spasm Duration: 7 Days Unchanged traZODone (traZODone 100 mg oral tablet) 1 tab(s) by mouth Daily at bedtime Pharmacy Information [id number]: [address], [place] [id number] [phone] What How Much When Comments Stop Taking acetaminophen (acetaminophen 325 mg oral tablet) 2 tab(s) by mouth Every 4 hours as needed for as needed for fever Stop Taking acetaminophen (acetaminophen 325 mg oral tablet) 2 tab(s) by mouth Every 4 hours as needed for as needed for pain Stop Taking acetaminophen (acetaminophen 650 mg rectal suppository) 1 suppository(ies) in the rectum Every 4 hours as needed for as needed for pain Stop Taking acetaminophen (acetaminophen 650 mg rectal suppository) 1 suppository(ies) in the rectum Every 4 hours as needed for as needed for fever Stop Taking hydroCHLOROthiazide (hydroCHLOROthiazide 50 mg oral tablet) 1 tab(s) by mouth Once a day (in the morning) Stop Taking traMADol (traMADol 50 mg oral tablet) 1 tab(s) by mouth Every 8 hours as needed for chronic pain Please take this list to your [...] to receive it can visit one of [facility] vaccine clinics. There are many vaccine clinic locations within the [facility]. For locations and available times, please visit [email or web address] It is important to note that some COVID mobile vaccine clinics are held outdoors and may be canceled in rainy or stormy conditions. To learn more about pediatric vaccinations (ages 5-11), we invite you to visit the [facility] webpage. [email or web address]/pages [email or web address]-Frequently-A sked-Questions.html To learn more about the COVID-19 vaccine, we invite you to visit the CDC website for a list of frequently asked questions.https://www.cdc.gov/hess virus/2019-ncov/vaccines/faq.html [facility] Patient Portal Access Instructions: Stay connected with your healthcare team and access your personal medical information anytime with the [facility] Patient Portal. Please follow the directions below to create your [facility] account: 1.Access the email account you provided upon registration to the hospital/physician office.2.Look for an invitation email from [facility].3.Open the email and access the invitation link: Accept Invitation to [facility].4.Fill in the required orr to create your account. To access your account, visit [email or web address]. Click the blue button labeled "Access Patient Portal" and then log in with the username [...] you will allow to register on the [facility] [employer] [facility] Patient Portal for access to your information. You can also access the [facility] Patient Portal on the [facility] frida. Simply click on "Patient Portal" and then log into your account. If you would like to receive a full copy of your medical records, please contact the [facility] Medical Records Department by calling [phone], Monday through Monday between 8 a.m. and [...] Call your local pharmacy or go to http://bit.ly/6J5Cc5h to find one close to you.3.Make use of household items: Use cat litter or old coffee grounds to dispose medications if other options are not available. Mix your drugs with these household products, seal them in an airtight container and throw it into the garbage. Call [facility]: [phone] to be sure your drugs can be [...] aware that I should contact my doctor. 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 Signature: ___ Date/Time: Relationship to Patient: _ Witness Name/Signature: Date/Time: [facility] 12-26-2024 Note Discharge Instructions Thank you for allowing [facility] to assist you with your healthcare needs. The following is important discharge information regarding your hospital visit. Your Care Team GIRMA CORREA Your Diagnosis CHF with cardiomyopathy History of fracture of right ankle Hypertension associated with type 2 diabetes mellitus Infection of bone of right ankle Morbid obesity with BMI of 40.0-44.9, adult Postoperative pain Shortness of breath What to do next Instructions From Your Doctor You are being discharged from the hospital with prolonged IV antibiotics. Follow-up with all providers involved in your care. Follow Up Appointments Follow Up with GIRMA CORREA When:Within 1-2 days Where:[address] [facility] [place] [address]- [phone] Follow Up with MAYRA MARTIN BA, MD, Infectious Disease, Infectious Disease Group When:In 3 weeks Where:[facility] [address] [address]- [phone] Follow Up with NANI QUINTANA DO, Orthopedic When:In 1 week Where:[address] [facility], [place] [address] [phone] Additional Information: Please call office SARA to schedule follow up appointment in 1 week for repeat XRs and skin check. The Following Activity and Diet Have Been Ordered for You Discharge Activity - Ordered -- Other, Nonweightbearing left lower extremity, 12/24/24 17:27:00 EDT No qualifying data available. The Following Equipment Has Been Ordered for You Discharge Home Equipment Discharge Wound Care - Ordered -- Maintain splint until follow-up in clinic, 12/24/24 17:27:00 EDT The Following Treatments Have Been Ordered for You Discharge Labs No qualifying data available. Discharge Radiology No qualifying data available. Other Therapies No qualifying data available. Post Acute Orders No qualifying data available. Someone Will Contact You Regarding These Home Health Referrals No home referrals have been ordered for you. No one will call you. Allergies Contrast dye Statins myalgia Medications Please ask your primary doctor or pharmacist before taking any other medication not listed, including over the counter drugs, herbal medications, vitamins and or supplements as they may interact with your home medications. What How Much When Why Instructions Last Dose New acetaminophen-oxyCODONE (Percocet 5 mg-325 mg oral tablet) 1 tab(s) by mouth Every 6 hours as needed for for pain Postoperative pain Duration: 7 Days Pickup at [facility]/pharmacy #[id number] New ceFAZolin (CeFAZolin 2 gm IV Syringe) 20 Milliliter IV Push (INT) Every 8 hours See physical Rx in chart left by ID physician Unchanged albuterol (albuterol 2.5 mg/ 3 mL (0.083%) inhalation solution) 3 Milliliter by inhalation Every 6 hours Unchanged allopurinol (allopurinol 100 mg oral tablet) 1 tab(s) by mouth Once a day Unchanged aluminum hydroxide/ magnesium hydroxide/ simethicone (Al hydroxide/ Mg hydroxide/ simethicone 200 mg-200 mg-20 mg/ 5 mL oral suspension) 30 Milliliter by mouth Every 4 hours as needed for GI distress Unchanged amLODIPine (amLODIPine 5 mg oral tablet) 1 tab(s) by mouth Once a day (in the morning) Unchanged bempedoic acid (Nexletol 180 mg oral tablet) 1 tab(s) by mouth Once a day Unchanged bisacodyl (bisacodyl 10 mg rectal suppository) 1 suppository(ies) in the rectum Once a day as needed for as needed for constipation Unchanged cetirizine (cetirizine 10 mg oral tablet) [...] 1 cap by mouth Once a day (in the morning) Unchanged fluticasone-salmeterol (Advair Diskus 100 mcg-50 mcg/ inh inhalation powder) 1 inh by inhalation Two (2) times a day Unchanged glucagon (GlucaGen 1 mg injection) 1 Milligram Intramuscular Once as needed for Hypoglycemia Unchanged glucose (Gluco-To-Go 40% oral gel) 1 dose by mouth Once as needed for as needed for low blood sugar Unchanged guaiFENesin 10 Milliliter by mouth Every 4 hours as needed for for cough/congestion Unchanged magnesium hydroxide (Milk of Magnesia 8% oral suspension) 30 Milliliter by mouth Daily at bedtime as needed for as needed for constipation Unchanged metoprolol (Toprol-XL 100 mg oral tablet, extended release) 1 tab(s) by mouth Two (2) times a day Shortness of breath Duration: 90 Days do not crush or chew Unchanged omeprazole (omeprazole 40 mg oral delayed release capsule) 1 cap by mouth Once a day (in the morning) Unchanged potassium chloride (Potassium Chloride (Eqv-K-Tab) 20 mEq oral tablet, extended release) 1 tab(s) by mouth Once a day Take with food Unchanged pravastatin (pravastatin 40 mg oral tablet) 1 tab(s) by mouth Daily at bedtime Unchanged rivaroxaban (Xarelto 20 mg oral tablet) 1 tab(s) by mouth Daily at bedtime Unchanged sodium biphosphate-sodium phosphate (Fleet Enema 19 g-7 g/ 118 mL rectal enema) 1 Each in the rectum Once a day as needed for as needed for constipation Unchanged spironolactone (spironolactone 25 mg oral tablet) 1 tab(s) by mouth Once a day Duration: 90 Days Unchanged tiZANidine (tiZANidine 2 mg oral tablet) 1 tab(s) by mouth Every 8 hours as needed for as needed for muscle spasm Duration: 7 Days Unchanged traZODone (traZODone 100 mg oral tablet) 1 tab(s) by mouth Daily at bedtime Pharmacy Information [facility]/pharmacy #[id number]: [address], [place] [id number] [phone] What How Much When Comments Stop Taking acetaminophen (acetaminophen 325 mg oral tablet) 2 tab(s) by mouth Every 4 hours as needed for as needed for fever Stop Taking acetaminophen (acetaminophen 325 mg oral tablet) 2 tab(s) by mouth Every 4 hours as needed for as needed for pain Stop Taking acetaminophen (acetaminophen 650 mg rectal suppository) 1 suppository(ies) in the rectum Every 4 hours as needed for as needed for pain Stop Taking acetaminophen (acetaminophen 650 mg rectal suppository) 1 suppository(ies) in the rectum Every 4 hours as needed for as needed for fever Stop Taking hydroCHLOROthiazide (hydroCHLOROthiazide 50 mg oral tablet) 1 tab(s) by mouth Once a day (in the morning) Stop Taking traMADol (traMADol 50 mg oral tablet) 1 tab(s) by mouth Every 8 hours as needed for chronic pain Please take this list to your [...] to receive it can visit one of [facility] vaccine clinics. There are many vaccine clinic locations within the [facility]. For locations and available times, please visit [email or web address] It is important to note that some COVID mobile vaccine clinics are held outdoors and may be canceled in rainy or stormy conditions. To learn more about pediatric vaccinations (ages 5-11), we invite you to visit the [facility] webpage. https://www.[email or web address].org/pages /[email or web address]-Frequently-A sked-Questions.html To learn more about the COVID-19 vaccine, we invite you to visit the CDC website for a list of frequently asked questions.https://www.cdc.gov/hess virus/2019-ncov/vaccines/faq.html [facility] Patient Portal Access Instructions: Stay connected with your healthcare team and access your personal medical information anytime with the [facility] Patient Portal. Please follow the directions below to create your [facility] account: 1.Access the email account you provided upon registration to the hospital/physician office.2.Look for an invitation email from [facility].3.Open the email and access the invitation link: Accept Invitation to [facility].4.Fill in the required orr to create your account. To access your account, visit [email or web address]. Click the blue button labeled "Access Patient Portal" and then log in with the username [...] you will allow to register on the [facility] Patient Portal for access to your information. You can also access the [facility] on the [facility] frida. Simply click on "Patient Portal" and then log into your account. If you would like to receive a full copy of your medical records, please contact the [facility] Medical Records Department by calling [phone], Monday through Monday between 8 a.m. and [...] Call your local pharmacy or go to http://weeSPIN/[email or web address] to find one close to you.3.Make use of household items: Use cat litter or old coffee grounds to dispose medications if other options are not available. Mix your drugs with these household products, seal them in an airtight container and throw it into the garbage. Call [facility]: [phone] to be sure your drugs can be [...] aware that I should contact my doctor. 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 48hr damian on last set of blood cultures is not up until tonight after midnight. Messaged Dr Casey regarding this. Dr Casey is ok with PICC being placed now. Patient had 3 sets of serial blood cultures drawn and all have had no growth as of now. Informed Dr Dewitt that PICC will be placed today. Digitally Signed by SHAHEEN Allen on 12/26/2024 11:54 AM [facility] 12-26-[address] Dewitt called IV team to say patient is potential for discharge today if PICC can be placed. 48hr damian on last set of blood cultures is not up until tonight after midnight. Messaged Dr Casey regarding this. Dr Casey is ok with PICC being placed now. Patient had 3 sets of serial blood cultures drawn and all have had no growth as of now. Informed Dr Dewitt that PICC will be placed today. Digitally Signed by SHAHEEN Allen on 12/26/2024 11:54 AM [facility] 12-25-2024 Note Date of Service 12/25/24 Subjective 54 year old male admitted for infection rt ankle hardware. Cardiac history of dofetilide and anticoagulation. Will transition cefepime and vancomycin to cefazolin 2 g every 8 hours. Plan will be 6 weeks of IV cefazolin 2 g every 8 hours with end date of February 04, 2025. Please obtain CBC, differential, CMP, ESR, CRP every Monday while on IV antibiotics and fax results to attention Dr. Martin at [phone]. Objective Vitals and Measurements T: 36.7 C (Oral) TMIN: 36 C (Temporal Artery) TMAX: 37.0 C (Oral) HR: 69 RR: 18 BP: 127/70 SpO2: 96% Intake and Output 7AM Yesterday to 7AM Today Intake and Output (Last 24 hours) Intake Oral Intake 720.00 Administration Information 500.00 Output Urine Voided 1850.00 Intra-Op EBL 1.00 Stool Count 0.00 Total Summary Total Intake 1220.00 Total Output 1851.00 Fluid Balance -631.00 Physical Exam Weight Dosing Weight: 140 kg (12/24/24) Medications Medications (41) Active Scheduled: (18) acetaminophen 325 mg Tablet 650 mg 2 tab(s), Oral, QID albuterol 0.083% Soln UD (2.5mg/3 mL) 2.5 mg 3 mL, Inhalation, QIDRT allopurinol 100 mg tablet 100 mg 1 tab(s), Oral, qDay aspirin 81 mg Chewable 81 mg 1 tab(s), Oral, BID atorvastatin 10 mg tablet 10 mg 1 tab(s), Oral, qHS budesonide 0.25 mg/2 mL Susp UD 0.25 mg 2 mL, Inhalation, BIDRT ceFAZolin syringe 2 gram(s) 20 mL, IV Push (INT), q8h docusate-senna (Senokot S) 50 mg-8.6 mg Tablet 1 tab(s), Oral, qDay dofetilide 250 mcg capsule 250 mcg 1 cap(s), Oral, BID duloxetine [address] Capsule 20 mg 1 cap(s), Oral, qAM insulin lispro 100 units/mL Soln (3 mL) Give 0-10 units/dose, Subcutaneous, TIDAC lidocaine 1% (MPF) 2 mL vial pf 30 mg 3 mL, Intradermal, prep pharm loratadine 10 mg Tablet 10 mg 1 tab(s), Oral, qDay metoprolol succinate 100 mg ER tablet 100 mg 1 tab(s), Oral, BID Nexletol 180 mg oral tablet 180 mg 1 tab(s), Oral, qDay omeprazole [address] capsule 40 mg 1 cap(s), Oral, qAM potassium chloride 20 mEq ER tablet 20 mEq 1 tab(s), Oral, qDay traZODONE 100 mg Tablet 100 mg 1 tab(s), Oral, qHS Continuous: (1) NS (0.9% nacl) 1,000 mL 1,000 mL, Intravenous, 75 mL/hr PRN: (22) acetaminophen-OXYcodone 325 mg-5 mg Tablet 1 tab(s), Oral, q4h acetaminophen-OXYcodone 325 mg-5 mg Tablet 2 tab(s), Oral, q4h acetaminophen-OXYcodone 325 mg-5 mg Tablet 1 tab(s), Oral, q4h Al hydrox/Mg hydrox/simethicone 200-200-20 mg/5 mL Susp UD 30 mL, Oral, q4h albuterol - ipratropium 2.5 mg-0.5 mg/3 mL Inhal Lisa UD 3 mL, Inhalation, q4hRT bisacodyl 10 mg Suppository 10 mg 1 supp, Rectal, qDay dextrose 50% Solution Disp syringe 50 mL 25 gram(s) 50 mL, IV Push, AsDirected dextrose 50% Solution Disp syringe 50 mL 25 gram(s) 50 mL, IV Push, AsDirected docusate sodium 100 mg Capsule 100 mg 1 cap(s), Oral, BID guaifenesin 100 mg/5 mL Liquid 120 mL 200 mg 10 mL, Oral, q4h hydroxyzine pamoate 25 mg capsule 25 mg 1 cap(s), Oral, QID magnesium hydroxide 8% Suspension 30 mL UD 2.4 gram(s), Oral, qHS melatonin 3 mg tablet 3 mg 1 tab(s), Oral, qHS morphine 2 mg/mL 1 mL syringe 1 mg 0.5 mL, IV Push, q4h morphine 4 mg/mL 1mL INJ 4 mg 1 mL, IV Push, q3h ondansetron 2 mg/ 1 mL 2 mL INJ 4 mg 2 mL, IV Push, q4h ondansetron 2 mg/ 1 mL 2 mL INJ 4 mg 2 mL, IV Push, q4h ondansetron 4 mg DIS tablet 4 mg 1 tab(s), Oral, q6h polyethylene glycol 3350 - UD packet 17 gram(s) 15 mL, Oral, qDay prochlorperazine 10 mg/2 mL vial 5 mg 1 mL, IV Push, q6h sodium biphosphate-sodium phosphate 19 gm-7 gm Enema 1 EA, Rectal, qDay tiZANidine 2 mg tablet 2 mg 1 tab(s), Oral, q8h Lab Results 12/25 14:40 Glucose Level: 218 H Sodium Level: 138 Potassium Level: 4.9 BUN: 12.0 Creatinine Lvl (s): 0.82 12/25 12:33 WBC: 6.1 Hgb: 14.1 Hct: 43.7 Platelet: 136 L Neutrophil %: 74.2 12/24 04:15 WBC: 7.5 Hgb: 14.3 Hct: 44.1 Platelet: 140 L Neutrophil %: 72.6 Protime: 13.8 PT International Ratio: 1.2 Glucose Level: 118 H Sodium Level: 137 Potassium Level: 3.7 BUN: 11.0 Creatinine Lvl (s): 0.98 EKG No qualifying data available. Assessment/Plan -Acute right ankle hardware infection in setting of history right ankle external fixator -Hypertension -Morbid obesity -Diabetes mellitus type II -Hyperlipidemia -Chronic paroxysmal atrial fibrillation -Gerd -Anxiety/depression -Chronic COPD not in exacerbation S/p surgical intervention. Plan for PICC line and group home IV antibiotics per ID. He will remain in hospital overnight because IV antibiotics are not yet setup. BP control fair. Continue current diabetic regimen. IVF discontinued. Level of Care Indication Regular Floor DVT Prophylaxis Heparin SQ Maintenance IVF Indication NA / No maintenance IVF Indwelling Urinary Catheter Indication NA No indwelling catheter Anticipated Timeline of Discharge 24 hours Anticipated DC Disposition SNF Digitally Signed by PERNELL DEWITT MD on 12/25/2024 04:09 PM [facility] 12-25-2024 Infectious disease Progress note Date of Service 12/25/2024 Chief Complaint Right ankle hardware infection Subjective Patient seen and independently evaluated the bedside. He is resting in bed comfortably in no acute distress. Complains of right leg pain. Feels much improved today. No fever, chills or night sweats. No nausea, vomiting or diarrhea. No abdominal pain. No urinary complaints Objective Vitals and Measurements T: 36.6 C (Oral) TMIN: 36 C (Temporal Artery) TMAX: 37.0 C (Oral) HR: 72 (Apical) RR: 18 BP: 121/69 SpO2: 93% Intake and Output 7AM Yesterday to 7AM Today Intake and Output (Last 24 hours) Intake Oral Intake 480.00 Administration Information 500.00 Output Urine Output Initial 900.00 Urine Voided 1850.00 Intra-Op EBL 1.00 Stool Count 0.00 Total Summary Total Intake 980.00 Total Output 2751.00 Fluid Balance -1771.00 Physical Exam General: No acute distress. Alert and Appropriate Skin: Right leg with [place] bandage in place and splint, dressing is clean, dry and intact. HEENT: Head is normocephalic and atraumatic. No [...] commands, moving all extremities. Weight Dosing Weight: 140 kg (12/24/24) Medications Medications (41) Active Scheduled: (18) acetaminophen 325 mg Tablet 650 mg 2 tab(s), Oral, QID albuterol 0.083% Soln UD (2.5mg/3 mL) 2.5 mg 3 mL, Inhalation, QIDRT allopurinol 100 mg tablet 100 mg 1 tab(s), Oral, qDay aspirin 81 mg Chewable 81 mg 1 tab(s), Oral, BID atorvastatin 10 mg tablet 10 mg 1 tab(s), Oral, qHS budesonide 0.25 mg/2 mL Susp UD 0.25 mg 2 mL, Inhalation, BIDRT cefepime in D5W PMX 2 gram(s) 50 mL, IV Piggyback, q12h docusate-senna (Senokot S) 50 mg-8.6 mg Tablet 1 tab(s), Oral, qDay dofetilide 250 mcg capsule 250 mcg 1 cap(s), Oral, BID duloxetine [address] Capsule 20 mg 1 cap(s), Oral, qAM insulin lispro 100 units/mL Soln (3 mL) Give 0-10 units/dose, Subcutaneous, TIDAC loratadine 10 mg Tablet 10 mg 1 tab(s), Oral, qDay metoprolol succinate 100 mg ER tablet 100 mg 1 tab(s), Oral, BID Nexletol 180 mg oral tablet 180 mg 1 tab(s), Oral, qDay omeprazole [address] capsule 40 mg 1 cap(s), Oral, qAM potassium chloride 20 mEq ER tablet 20 mEq 1 tab(s), Oral, qDay traZODONE 100 mg Tablet 100 mg 1 tab(s), Oral, qHS vancomycin PMX 2,000 mg 500 mL, IV Piggyback, q12h Continuous: (1) NS (0.9% nacl) 1,000 mL 1,000 mL, Intravenous, 75 mL/hr PRN: (22) acetaminophen-OXYcodone 325 mg-5 mg Tablet 1 tab(s), Oral, q4h acetaminophen-OXYcodone 325 mg-5 mg Tablet 2 tab(s), Oral, q4h acetaminophen-OXYcodone 325 mg-5 mg Tablet 1 tab(s), Oral, q4h Al hydrox/Mg hydrox/simethicone 200-200-20 mg/5 mL Susp UD 30 mL, Oral, q4h albuterol - ipratropium 2.5 mg-0.5 mg/3 mL Inhal Lisa UD 3 mL, Inhalation, q4hRT bisacodyl 10 mg Suppository 10 mg 1 supp, Rectal, qDay dextrose 50% Solution Disp syringe 50 mL 25 gram(s) 50 mL, IV Push, AsDirected dextrose 50% Solution Disp syringe 50 mL 25 gram(s) 50 mL, IV Push, AsDirected docusate sodium 100 mg Capsule 100 mg 1 cap(s), Oral, BID guaifenesin 100 mg/5 mL Liquid 120 mL 200 mg 10 mL, Oral, q4h hydroxyzine pamoate 25 mg capsule 25 mg 1 cap(s), Oral, QID magnesium hydroxide 8% Suspension 30 mL UD 2.4 gram(s), Oral, qHS melatonin 3 mg tablet 3 mg 1 tab(s), Oral, qHS morphine 2 mg/mL 1 mL syringe 1 mg 0.5 mL, IV Push, q4h morphine 4 mg/mL 1mL INJ 4 mg 1 mL, IV Push, q3h ondansetron 2 mg/ 1 mL 2 mL INJ 4 mg 2 mL, IV Push, q4h ondansetron 2 mg/ 1 mL 2 mL INJ 4 mg 2 mL, IV Push, q4h ondansetron 4 mg DIS tablet 4 mg 1 tab(s), Oral, q6h polyethylene glycol 3350 - UD packet 17 gram(s) 15 mL, Oral, qDay prochlorperazine 10 mg/2 mL vial 5 mg 1 mL, IV Push, q6h sodium biphosphate-sodium phosphate 19 gm-7 gm Enema 1 EA, Rectal, qDay tiZANidine 2 mg tablet 2 mg 1 tab(s), Oral, q8h Lab Results 12/24 04:15 WBC: 7.5 Hgb: 14.3 Hct: 44.1 Platelet: 140 L Neutrophil %: 72.6 Protime: 13.8 PT International Ratio: 1.2 Glucose Level: 118 H Sodium Level: 137 Potassium Level: 3.7 BUN: 11.0 Creatinine Lvl (s): 0.98 Imaging Results and Diagnostics XR Fluoro 1-2 Hrs Tech Time Result Date: December 24, 2024 Verified By: TRACY PETTIT, DARNELL Spears CLINICAL STATEMENT: IMPRESSION: Intraprocedural fluoroscopic spot images as above. See separate procedurereport for more information. XR Ankle Minimum 3 Views Left Result Date: December 23, 2024 Verified By: TRACE FIERRO MD CLINICAL STATEMENT: IMPRESSION: Similar alignment of distal fibular/lateral malleolar fracture withsurrounding reparative changes. I have personally reviewed the images of this examination and agree with theresident's findings and interpretation. XR Ankle Minimum 3 Views Right Result Date: December 23, 2024 Verified By: MICK LEGGETT MD CLINICAL STATEMENT: IMPRESSION: External fixation hardware is similarly positioned. Small area of bonylucency surrounding the calcaneal hardware, which was not definitivelyidentified on prior, and can be seen with developing perihardware infection. Stable appearance of mildly displaced distal fibular spiral fracture withminimal healing changes. Soft tissue swelling surrounding the ankle. I have personally reviewed the images of this examination and agree with theresident's findings and interpretation. EKG No qualifying data available. Assessment/Plan Right ankle hardware infection Right leg cellulitis Recent MSSA bacteremia Type 2 diabetes Recent right ankle fracture requiring external fixation Patient is a 54-year-old male with history of COPD, tobacco abuse, atrial fibrillation, type 2 diabetes, recent right ankle fracture requiring external fixation presents to the hospital on 12/23/2024 with worsening swelling, redness and pain of his right ankle. Recently seen by ID for MSSA bacteremia secondary to SSI of the right ankle and was discharged on 2 weeks of oral Keflex with end date of December 09, 2024. X-ray of the left ankle showed external fixator hardware surrounding the calcaneal with concern for infection. ID following for right ankle hardware infection. #1 right ankle hardware infection. Patient underwent right ankle external fixator removal, I&D of pinhole sites with application of short leg splint on 12/24/2024, no new culture data collected. He is clinically improving, no fever or leukocytosis. As there is concern for hardware infection and calcaneal osteomyelitis as a result, will plan for 6 weeks of IV antibiotics. Will transition cefepime and vancomycin to cefazolin 2 g every 8 hours. Plan will be 6 weeks of IV cefazolin 2 g every 8 hours with end date of February 04, 2025. Please obtain CBC, differential, CMP, ESR, CRP every Monday while on IV antibiotics and fax results to attention Dr. Martin at [phone]. Please make outpatient follow-up with Dr. Martin in 2 to 4 weeks time. Prescription will be left on the chart. PICC line can be placed by IV team. Remove PICC after completion of IV antibiotics. Plan of care discussed in depth with patient. All questions answered. ID will sign off. Please call for further questions or concerns Discussed with my collaborating physician Dr. Te Casey. Any changes to the plan will be added to end as an addendum. Time Spent I spent a total of 42 minutes reviewing the patient s diagnostic labs/tests, seeing and examining the patient and documenting in the medical record, see assessment for further detail. Digitally Signed by ORI TOMLIN on 12/25/2024 02:20 PM [facility] 12-25-2024 Note . MICRO - Microbiology PROCEDURE: Blood Culture (bacterial) [*1] SOURCE: Blood BODY SITE: COLLECTED DATE/TIME: 12/25/2024 00:19 EDT RECEIVED DATE/TIME: 12/25/2024 07:08 EDT START DATE/TIME: 12/25/2024 07:08 EDT FREE TEXT SOURCE: PRELIMINARY REPORTS Preliminary Report [] Verified Date/Time/Personnel: 12/25/2024 07:59 EDT Culture has been received in lab and is no growth to date. Routine cultures are held for 5 days. Performing Locations *1: This test was performed at: [address], [address] [place] [address] 12-25-2024 Note . MICRO - Microbiology PROCEDURE: Blood Culture (bacterial) [*1] SOURCE: Blood BODY SITE: COLLECTED DATE/TIME: 12/25/2024 00:19 EDT RECEIVED DATE/TIME: 12/25/2024 07:08 EDT START DATE/TIME: 12/25/2024 07:08 EDT FREE TEXT SOURCE: PRELIMINARY REPORTS Preliminary Report [] Verified Date/Time/Personnel: 12/25/2024 07:59 EDT Culture has been received in lab and is no growth to date. Routine cultures are held for 5 days. Performing Locations *1: This test was performed at: [address], [address] [place] [address] 12-25-2024 Orthopaedic surgery Progress note Date of Service 12/25/2024 Subjective Right evaluated bedside this morning. Patient states that he is doing well. He states minimal pain to right lower extremity. We discussed plans to continue nonweightbearing status to right lower extremity and follow-up with Dr. Quintana in 1 week for x-rays, skin check and splint check. Patient denies any numbness, tingling, weakness right lower extremity. He denies any further orthopedic plaints. Objective Vitals and Measurements T: 36.7 C (Oral) TMIN: 36 C (Temporal Artery) TMAX: 37.0 C (Oral) HR: 59 RR: 18 BP: 96/59 SpO2: 93% Intake and Output 7AM Yesterday to 7AM Today Intake and Output (Last 24 hours) Intake Oral Intake 480.00 Administration Information 500.00 Output Urine Output Initial 900.00 Urine Voided 1725.00 Intra-Op EBL 1.00 Stool Count 0.00 Total Summary Total Intake 980.00 Total Output 2626.00 Fluid Balance -1646.00 Physical Exam Right Lower Extremity - Splint to right lower extremity is clean, dry, intact. - Motor: EHL/FHL intact. - Foot warm and perfused. BCR - Sensation grossly intact L2-S2: obturator, femoral, LCN, DPN, SPN, sural, saphenous, M/COMPRESSOR TECHNICIAN - Calf soft and non-tender Weight Dosing Weight: 140 kg (12/24/24) Medications Medications (42) Active Scheduled: (19) acetaminophen 325 mg Tablet 650 mg 2 tab(s), Oral, QID albuterol 0.083% Soln UD (2.5mg/3 mL) 2.5 mg 3 mL, Inhalation, QIDRT allopurinol 100 mg tablet 100 mg 1 tab(s), Oral, qDay aspirin 81 mg Chewable 81 mg 1 tab(s), Oral, BID atorvastatin 10 mg tablet 10 mg 1 tab(s), Oral, qHS budesonide 0.25 mg/2 mL Susp UD 0.25 mg 2 mL, Inhalation, BIDRT cefepime in D5W PMX 2 gram(s) 50 mL, IV Piggyback, q12h docusate-senna (Senokot S) 50 mg-8.6 mg Tablet 1 tab(s), Oral, qDay dofetilide 250 mcg capsule 250 mcg 1 cap(s), Oral, BID duloxetine [address] Capsule 20 mg 1 cap(s), Oral, qAM insulin lispro 100 units/mL Soln (3 mL) Give 0-10 units/dose, Subcutaneous, TIDAC loratadine 10 mg Tablet 10 mg 1 tab(s), Oral, qDay metoprolol succinate 100 mg ER tablet 100 mg 1 tab(s), Oral, BID Nexletol 180 mg oral tablet 180 mg 1 tab(s), Oral, qDay omeprazole [address] capsule 40 mg 1 cap(s), Oral, qAM potassium chloride 20 mEq ER tablet 20 mEq 1 tab(s), Oral, qDay traZODONE 100 mg Tablet 100 mg 1 tab(s), Oral, qHS vancomycin PMX 2,000 mg 500 mL, IV Piggyback, q12h Vancomycin Trough level 1 EA, Miscellaneous, q12hr Continuous: (1) NS (0.9% nacl) 1,000 mL 1,000 mL, Intravenous, 75 mL/hr PRN: (22) acetaminophen-OXYcodone 325 mg-5 mg Tablet 1 tab(s), Oral, q4h acetaminophen-OXYcodone 325 mg-5 mg Tablet 2 tab(s), Oral, q4h acetaminophen-OXYcodone 325 mg-5 mg Tablet 1 tab(s), Oral, q4h Al hydrox/Mg hydrox/simethicone 200-200-20 mg/5 mL Susp UD 30 mL, Oral, q4h albuterol - ipratropium 2.5 mg-0.5 mg/3 mL Inhal Lisa UD 3 mL, Inhalation, q4hRT bisacodyl 10 mg Suppository 10 mg 1 supp, Rectal, qDay dextrose 50% Solution Disp syringe 50 mL 25 gram(s) 50 mL, IV Push, AsDirected dextrose 50% Solution Disp syringe 50 mL 25 gram(s) 50 mL, IV Push, AsDirected docusate sodium 100 mg Capsule 100 mg 1 cap(s), Oral, BID guaifenesin 100 mg/5 mL Liquid 120 mL 200 mg 10 mL, Oral, q4h hydroxyzine pamoate 25 mg capsule 25 mg 1 cap(s), Oral, QID magnesium hydroxide 8% Suspension 30 mL UD 2.4 gram(s), Oral, qHS melatonin 3 mg tablet 3 mg 1 tab(s), Oral, qHS morphine 2 mg/mL 1 mL syringe 1 mg 0.5 mL, IV Push, q4h morphine 4 mg/mL 1mL INJ 4 mg 1 mL, IV Push, q3h ondansetron 2 mg/ 1 mL 2 mL INJ 4 mg 2 mL, IV Push, q4h ondansetron 2 mg/ 1 mL 2 mL INJ 4 mg 2 mL, IV Push, q4h ondansetron 4 mg DIS tablet 4 mg 1 tab(s), Oral, q6h polyethylene glycol 3350 - UD packet 17 gram(s) 15 mL, Oral, qDay prochlorperazine 10 mg/2 mL vial 5 mg 1 mL, IV Push, q6h sodium biphosphate-sodium phosphate 19 gm-7 gm Enema 1 EA, Rectal, qDay tiZANidine 2 mg tablet 2 mg 1 tab(s), Oral, q8h Lab Results 12/24 04:15 WBC: 7.5 Hgb: 14.3 Hct: 44.1 Platelet: 140 L Neutrophil %: 72.6 Protime: 13.8 PT International Ratio: 1.2 Glucose Level: 118 H Sodium Level: 137 Potassium Level: 3.7 BUN: 11.0 Creatinine Lvl (s): 0.98 12/23 20:06 WBC: 8.5 Hgb: 15.5 Hct: 47.5 Platelet: 223 Neutrophil %: 70.9 Glucose Level: 100 Sodium Level: 133 L Potassium Level: 4.8 BUN: 11.0 Creatinine Lvl (s): 0.98 EKG No qualifying data available. Assessment/Plan Right ankle fracture dislocation, s/p right ankle spanning external fixator on 10/17/2024, s/p removal of right ankle spanning external fixator and placement of short leg splint on 12/24/2024. 54-year-old male POD #1 removal of right ankle spanning external fixator, irrigation and debridement of pin site care, placement of right short leg splint - Maintain splint clean, dry, intact until follow-up in [address] Quintana - Nonweightbearing right lower extremity - WBAT LLE with walking boot - Hgb pending -24-hour Ancef course to be completed today - DVT prophylaxis with aspirin 81 mg BID and SCDs on right lower extremity - Encourage incentive spirometer - PT/OT as tolerated for mobility and transfers - Social work for discharge management, appreciate care - Pain control as ordered, biased towards nonnarcotics - Discussed with attending Digitally Signed by SUZE MISHRA DO on 12/25/2024 07:08 AM Digitally Signed by ANA LUISA DONOVAN DO [facility] 12-24-2024 Anesthesiology Consult note Patient: CARLOS ALBERTO KELLEY JR Age: 54 years Sex: Male : 1970 Associated Diagnoses: None Author: CHANTAL WHEATLEY DO Postoperative Information Post Operative Info: Post op day: Post Anesthesia Care Unit. Patient location: PACU. Assessment Postanesthesia assessment Vitals: Vital signs from flowsheet : Vital Signs 12/24/2024 18:32 EDT Apical Heart Rate 68 bpm 12/24/2024 18:24 EDT Peripheral Pulse Rate 72 bpm Respiratory Rate 16 br/min 12/24/2024 18:06 EDT Temperature Oral 36.8 DegC Peripheral Pulse Rate 69 bpm Respiratory Rate 16 br/min Systolic Blood Pressure Non-Invasive 120 mmHg Diastolic Blood Pressure Non-Invasive 70 mmHg Reason For Taking VItal Signs Procedure post-care 12/24/2024 17:42 EDT Temperature Temporal Artery 36.5 DegC Heart Rate Monitored 70 bpm Respiratory Rate 18 br/min Systolic Blood Pressure Non-Invasive 120 mmHg Diastolic Blood Pressure Non-Invasive 60 mmHg Mean Arterial Pressure (NBP) 75 mmHg 12/24/2024 17:27 EDT Heart Rate Monitored 72 bpm Respiratory Rate 18 br/min Systolic Blood Pressure Non-Invasive 130 mmHg Diastolic Blood Pressure Non-Invasive 72 mmHg Mean Arterial Pressure (NBP) 90 mmHg 12/24/2024 17:12 EDT Temperature Temporal Artery 36 DegC Heart Rate Monitored 71 bpm Respiratory Rate 16 br/min Systolic Blood Pressure Non-Invasive 126 mmHg Diastolic Blood Pressure Non-Invasive 54 mmHg LOW Mean Arterial Pressure (NBP) 74 mmHg 12/24/2024 17:06 EDT Systolic Blood Pressure Non-Invasive 134 mmHg mmHg Diastolic Blood Pressure Non-Invasive 73 mmHg mmHg 12/24/2024 17:05 EDT Heart Rate Monitored 65 bpm bpm Respiratory Rate - Anes 12 br/min br/min 12/24/2024 17:03 EDT Systolic Blood Pressure Non-Invasive 139 mmHg mmHg Diastolic Blood Pressure Non-Invasive 76 mmHg mmHg 12/24/2024 17:00 EDT Heart Rate Monitored 67 bpm bpm Respiratory Rate - Anes 19 br/min br/min Systolic Blood Pressure Non-Invasive 135 mmHg mmHg Diastolic Blood Pressure Non-Invasive 82 mmHg mmHg 12/24/2024 16:57 EDT Systolic Blood Pressure Non-Invasive 132 mmHg mmHg Diastolic Blood Pressure Non-Invasive 75 mmHg mmHg 12/24/2024 16:55 EDT Heart Rate Monitored 70 bpm bpm Respiratory Rate - Anes 20 br/min br/min 12/24/2024 16:54 EDT Systolic Blood Pressure Non-Invasive 138 mmHg mmHg Diastolic Blood Pressure Non-Invasive 81 mmHg mmHg 12/24/2024 16:51 EDT Systolic Blood Pressure Non-Invasive 181 mmHg mmHg Diastolic Blood Pressure Non-Invasive 147 mmHg mmHg 12/24/2024 16:50 EDT Heart Rate Monitored 67 bpm bpm Respiratory Rate - Anes 4 br/min br/min 12/24/2024 16:48 EDT Systolic Blood Pressure Non-Invasive 125 mmHg mmHg Diastolic Blood Pressure Non-Invasive 72 mmHg mmHg 12/24/2024 16:45 EDT Heart Rate Monitored 65 bpm bpm Respiratory Rate - Anes 16 br/min br/min Systolic Blood Pressure Non-Invasive 132 mmHg mmHg Diastolic Blood Pressure Non-Invasive 75 mmHg mmHg 12/24/2024 16:42 EDT Systolic Blood Pressure Non-Invasive 132 mmHg mmHg Diastolic Blood Pressure Non-Invasive 65 mmHg mmHg 12/24/2024 15:05 EDT Peripheral Pulse Rate 64 bpm Respiratory Rate 16 br/min 12/24/2024 14:59 EDT Temperature Oral 37.0 DegC Peripheral Pulse Rate 70 bpm Respiratory Rate 16 br/min Systolic Blood Pressure Non-Invasive 106 mmHg Diastolic Blood Pressure Non-Invasive 70 mmHg Reason For Taking VItal Signs Routine 12/24/2024 10:50 EDT Peripheral Pulse Rate 71 bpm Respiratory Rate 16 br/min 12/24/2024 8:10 EDT Apical Heart Rate 66 bpm 12/24/2024 7:38 EDT Temperature Oral 36.8 DegC Peripheral Pulse Rate 65 bpm Respiratory Rate 16 br/min Systolic Blood Pressure Non-Invasive 120 mmHg Diastolic Blood Pressure Non-Invasive 74 mmHg Reason For Taking VItal Signs Routine 12/24/2024 6:35 EDT Peripheral Pulse Rate 64 bpm Respiratory Rate 16 br/min 12/24/2024 1:00 EDT Temperature Oral 36.8 DegC Peripheral Pulse Rate 88 bpm Respiratory Rate 16 br/min Systolic Blood Pressure Non-Invasive 119 mmHg Diastolic Blood Pressure Non-Invasive 74 mmHg 12/24/2024 0:18 EDT Peripheral Pulse Rate 84 bpm Respiratory Rate 18 br/min Systolic Blood Pressure Non-Invasive 123 mmHg Diastolic Blood Pressure Non-Invasive 66 mmHg 12/23/2024 23:15 EDT Temperature Oral 36.8 DegC Peripheral Pulse Rate 82 bpm Systolic Blood Pressure Non-Invasive 96 mmHg Diastolic Blood Pressure Non-Invasive 47 mmHg Signs/Symptoms Transfusion Reaction In Error (In Error) 12/23/2024 22:45 EDT Peripheral Pulse Rate 77 bpm Respiratory Rate 20 br/min 12/23/2024 22:31 EDT Apical Heart Rate 81 bpm Respiratory Rate 18 br/min Systolic Blood Pressure Non-Invasive 132 mmHg Diastolic Blood Pressure Non-Invasive 75 mmHg 12/23/2024 22:30 EDT Apical Heart Rate 81 bpm 12/23/2024 17:42 EDT Temperature Oral 36.7 DegC Peripheral Pulse Rate 75 bpm Respiratory Rate 20 br/min Systolic Blood Pressure Non-Invasive 132 mmHg Diastolic Blood Pressure Non-Invasive 83 mmHg , Oxygen Therapy : Oxygen Therapy & Oxygenation Information 12/24/2024 18:24 EDT Oxygen Saturation 95 % 12/24/2024 18:07 EDT Oxygen Therapy Room air Oxygen Activity Room air Oxygen Flow Rate 0 L/min 12/24/2024 18:06 EDT Oxygen Saturation 95 % 12/24/2024 17:42 EDT Oxygen Therapy Room air Oxygen Saturation 98 % 12/24/2024 17:27 EDT Oxygen Therapy Room air Oxygen Saturation 96 % 12/24/2024 17:12 EDT Oxygen Therapy Room air Oxygen Saturation 100 % 12/24/2024 17:05 EDT Oxygen Saturation 100 % % 12/24/2024 17:00 EDT Oxygen Saturation 100 % % 12/24/2024 16:55 EDT Oxygen Saturation 100 % % 12/24/2024 16:50 EDT Oxygen Saturation 100 % % 12/24/2024 16:45 EDT Oxygen Saturation 100 % % 12/24/2024 15:05 EDT Oxygen Saturation 90 % LOW 12/24/2024 14:59 EDT Oxygen Therapy Room air Oxygen Saturation 90 % LOW 12/24/2024 10:50 EDT Oxygen Saturation 90 % LOW 12/24/2024 7:38 EDT Oxygen Therapy Nasal cannula 0L-6L Oxygen Saturation 97 % Oxygen Flow Rate 2 L/min 12/24/2024 6:35 EDT Oxygen Therapy Nasal cannula 0L-6L Oxygen Saturation 96 % Oxygen Activity Oxygen On Oxygen Flow Rate 2 L/min 12/24/2024 2:04 EDT Oxygen Therapy Nasal cannula 0L-6L Oxygen Activity Oxygen On Oxygen Flow Rate 2 L/min 12/24/2024 1:00 EDT Oxygen Therapy Nasal cannula 0L-6L Oxygen Saturation 97 % Oxygen Flow Rate 2 L/min 12/24/2024 0:18 EDT Oxygen Therapy Room air Oxygen Saturation 94 % 12/23/2024 23:15 EDT Oxygen Therapy Room air 12/23/2024 22:45 EDT Oxygen Saturation 92 % LOW 12/23/2024 22:31 EDT Oxygen Therapy Room air Oxygen Saturation 95 % 12/23/2024 17:42 EDT Oxygen Therapy Room air Oxygen Saturation 93 % . Mental status: at preoperative baseline. Respiratory function: respirations are non-labored, Stable. Respiratory support: none. CV function: Stable. Cardiovascular support: none. Pain: Satisfactory. Nausea status: Satisfactory. Postoperative hydration status: within normal limits. Notes: Patient is sufficiently recovered from anesthesia to participate in the evaluation. No follow-up care needed. No complications post-anesthesia.. Digitally Signed by CHANTAL WHEATLEY DO on 12/24/2024 06:46 PM [facility] 12-24-2024 Note Exam Date Time Procedure Performing Provider Status 12/24/24 5:26 PM XR Fluoro 1-2 Hrs Tech Time Corin MOLINA MD; Auth (Verified) [id number] ORIGINAL EXAMINATION: SPOT FLUOROSCOPIC IMAGES 12/24/2024 5:26 pm TECHNIQUE: Fluoroscopy was provided by the radiology department for procedure. Radiologist was not present during examination. FLUOROSCOPY DOSE AND TYPE: Radiation Exposure Index: 0.194 mGy reference air kerma, Fluoro time: 3.2 seconds 1 image was saved COMPARISON: Right ankle x-ray on 12/23/2024 HISTORY: ORDERING SYSTEM PROVIDED HISTORY: Reason for Exam: ORIF RT ANKLE Intraprocedural imaging. FINDINGS: Spot intraoperative images are obtained demonstrating external fixation hardware has been removed from the right calcaneus. Osseous defect in posterior calcaneus is present. IMPRESSION: Intraprocedural fluoroscopic spot images as above. See separate procedure report for more information. Interpreted by: Darnell Molina MD Preliminary Report By: Darnell Molina MD Electronically signed By Darnell Molina MD Dictated Date: 12/25/2024 3:49:46 AM Prelim Date: 12/25/2024 3:52:11 AM Sign Date: 12/25/2024 3:52:11 AM Ordering Provider: ANA LUISA DONOVAN [id number] Consult note Date of Service 12/23/24 Reason for Consultation Right ankle surgical site infection Referring Physician Emergency department History of Present Illness Patient is a 54-year-old male presented to [facility] due to purulence coming from his external fixator. Of note, on 10-17-2024 he was treated with close reduction and external fixation with ankle spanning external fixator by Dr. Quintana at [facility]. Patient reports he did attend his 2-week follow- up however has not followed up since. He reports he was post to follow-up last week for removal of Ex-Fix and casting. He did not follow-up due to heart issues. He presents today due to purulence coming from the Ex-Fix. He reports no new trauma. He reports he has not been walking on his ankle. He reports no pain coming the ankle. He reports no paresthesias in the right ankle. He otherwise reports he feels well. Does not feel overly sick. Does not take any thinners. Of note, he was also treated in a closed fashion on the left ankle in a walking boot. This ankle never had any surgery. Review of Systems Pertinent positives and negative were listed above. All other systems reviewed were negative. Physical Exam Vitals and Measurements HR: 75 RR: 20 BP: 132/83 SpO2: 93% No qualifying data available. General: NAD, A&Ox3 HEENT: normocephalic, atraumatic, EOMI intact CV: pulses regular throughout, brisk cap refill throughout, Pulm: normal work of breathing, equal chest rise bilaterally, no intercostal retractions or conversational dyspnea GI: abdomen is soft, nontender, nondistended, no rigidity or guarding Psych: calm and cooperative Right lower extremity -External fixator about his ankle appears translated laterally. There is purulence coming from the pin sites about the calcaneal pin. There is also cellulitis about the entire ankle and foot, most notably about the calcaneal pain as well as the tibial pain. There is no purulence around the tibial pins. Sensation intact to light touch about the entire foot. -Skin pink and well perfused -Sensation intact to light touch L3-S1 -Gross motor function intact to dorsi/plantarflexion of ankle and toes -DP, TP pulses palpable -Compartments are soft and compressible -No calf tenderness Lab Results No 36 Hour Lab Data Imaging Results and Diagnostics X-rays of bilateral ankles are pending at this time Assessment/Plan - 54-year-old male presents after right ankle surgical site infection following external fixator inMay. Patient is NV intact. -I explained to the patient the need for surgical intervention to prevent major morbidity mortalitywith nonoperative treatment. Patient voiced understanding and was agreeable to proceed. -Will obtain informed consent and plan for right ankle removal of external fixator with possible open reduction internal fixation with Dr. Donovan tomorrow. -Hold any chemical DVT prophylaxis at this time - will order SCDs -Pain control -Per primary -Bedrest, NWB right lower extremity -N.p.o. at midnight - Ancef on-call to the OR -We will order type and screen preoperatively. Patient's current hemoglobin pending, platelets pending - Okay to initiate antibiotics -Awaiting medical optimization -Plan discussed with Dr. Donovan Problem List/Past Medical History Ongoing Asthma exacerbation Atopic dermatitis Atypical chest pain Bacteremia Bronchitis Cardiomyopathy Chewing tobacco nicotine dependence CHF [...] Cardioversion: 12/23/22 Echocardiogram: 11/11/22 Elbow Medications Inpatient Kefzol, 2 gram(s)= 20 mL, IV Push (INT), PREOP pharm Home albuterol 2.5 mg/3 mL (0.083%) inhalation [...] solution, 1.5 mg, Subcutaneous, qWeek, 3 refills Vistaril 25 mg oral capsule, 25 mg= 1 cap(s), Oral, QID, PRN, 3 refills Xarelto 20 mg oral tablet, 20 mg= 1 tab(s), Oral, qHS, 11 refills Allergies Contrast dye Statins myalgia Social History Alcohol Use: Past., [...] 0 unknown unit (08/14/20) Digitally Signed by FARZAD GIL DO on 12/23/2024 07:38 PM [id number] Anesthesiology Consult note Patient: CARLOS ALBERTO KELLEY JR Age: 54 years Sex: Male : 1970 Associated Diagnoses: None Author: CHANTAL WHEATLEY DO Preoperative Information NPO greater than 8 hours food and greater than 2 hours liquid Anesthesia history Patient's history: negative. Health Status Allergies: Allergic Reactions (Selected) Severity Not Documented Contrast dye- No reactions were documented. Nonallergic Reactions (Selected) Severity Not Documented Statins- Myalgia., Allergies (2) ActiveSeverityReaction Contrast dyeNone Documented Statinsmyalgia Current medications: (Selected) Inpatient Medications Ordered Al hydroxide/Mg hydroxide/simethicone 200 mg-200 mg-20 mg/5 mL oral suspension: 30 mL, Oral, q4h, PRN: GI distress DULoxetine: 20 mg, 1 cap(s), Oral, qAM Dextrose 50% IV Push: 25 gram(s), 50 mL, IV Push, AsDirected, PRN: Low blood sugar DuoNeb: 3 mL, Inhalation, q4hRT, PRN: Shortness of breath or wheezing Fleet Enema: 1 EA, Rectal, qDay, PRN: Constipation HumaLOG 100 units/mL subcutaneous solution: Give 0-10 units/dose, Subcutaneous, TIDAC Milk of Magnesia: 2.4 gram(s), Oral, qHS, PRN: Constipation Miralax Powder Packet: 17 gram(s), 15 mL, Oral, qDay, PRN: Constipation NS 1,000 mL: 75 mL/hr, Intravenous Nexletol 180 mg oral tablet: 180 mg, 1 tab(s), Oral, qDay Percocet 325/5: 1 tab(s), Oral, q4h, PRN: Pain, scale 4-6 Pulmicort Respules 0.25 mg/2 mL inhalation suspension: 0.25 mg, 2 mL, Inhalation, BIDRT Tikosyn: 250 mcg, 1 cap(s), Oral, BID Toprol-XL: 100 mg, 1 tab(s), Oral, BID Tylenol: 650 mg, 2 tab(s), Oral, QID Vancomycin - TROUGH reminder: 1 EA, Miscellaneous, q12hr Vistaril: 25 mg, 1 cap(s), Oral, QID, PRN: Anxiety Zofran: 4 mg, 2 mL, IV Push, q4h, PRN: Nausea/Vomiting albuterol 2.5 mg/3 mL (0.083%) inhalation solution: 2.5 mg, 3 mL, Inhalation, QIDRT allopurinol: 100 mg, 1 tab(s), Oral, qDay atorvastatin: 10 mg, 1 tab(s), Oral, qHS bisacodyl: 10 mg, 1 supp, Rectal, qDay, PRN: Constipation cefepime: 2 gram(s), 50 mL, 12.5 mL/hr, IV Piggyback, q12h guaiFENesin: 200 mg, 10 mL, Oral, q4h, PRN: Cough loratadine: 10 mg, 1 tab(s), Oral, qDay melatonin: 3 mg, 1 tab(s), Oral, qHS, PRN: Sleep morphine: 1 mg, 0.5 mL, IV Push, q4h, PRN: Pain, scale 7-10 omeprazole: 40 mg, 1 cap(s), Oral, qAM potassium chloride extended release: 20 mEq, 1 tab(s), Oral, qDay prochlorperazine: 5 mg, 1 mL, IV Push, q6h, PRN: Nausea/Vomiting tiZANidine: 2 mg, 1 tab(s), Oral, q8h, PRN: Muscle spasm traZODone: 100 mg, 1 tab(s), Oral, qHS vancomycin: 2,000 mg, 500 mL, 250 mL/hr, IV Piggyback, q12h Prescriptions Prescribed Nexletol 180 mg oral tablet: 180 mg, 1 tab(s), Oral, qDay, 30 tab(s), 5 Refill(s) Potassium Chloride (Eqv-K-Tab) 20 mEq oral tablet, extended release: 20 mEq, 1 tab(s), Oral, qDay, Take with food, 90 tab(s), 3 Refill(s) Tikosyn 250 mcg oral capsule: [...] for 90 day(s), 90 tab(s), 3 Refill(s) spironolactone 25 mg oral tablet: 25 mg, 1 tab(s), Oral, qDay, for 90 day(s), 90 tab(s), 3 Refill(s) tiZANidine 2 mg oral tablet: 2 mg, 1 tab(s), Oral, q8h, for 7 day(s), PRN: as needed for muscle spasm, 21 tab(s), 3 Refill(s) traZODone 100 mg oral tablet: 100 mg, 1 tab(s), Oral, qHS, 90 tab(s), 3 Refill(s) Documented Medications Documented Advair Diskus 100 mcg-50 mcg/inh inhalation powder: 1 inh, Inhalation, BID, 0 Refill(s) Al hydroxide/Mg hydroxide/simethicone 200 mg-200 mg-20 mg/5 mL oral suspension: 30 mL, Oral, q4h, PRN: GI distress, 0 Refill(s) DULoxetine 20 mg oral delayed release capsule: 20 mg, 1 cap(s), Oral, qAM Fleet Enema 19 g-7 g/118 mL rectal enema: 1 EA, Rectal, qDay, PRN: as needed for constipation, 0 Refill(s) GlucaGen 1 mg injection: 1 mg, Intramuscular, Once, PRN: Hypoglycemia, 0 Refill(s) Gluco-To-Go 40% oral gel: 1 dose, Oral, Once, PRN: as needed for low blood sugar, 0 Refill(s) Milk of Magnesia 8% oral suspension: 2.4 gram(s), 30 mL, Oral, qHS, PRN: as needed for constipation, 0 Refill(s) acetaminophen 325 mg oral tablet: 650 mg, 2 tab(s), Oral, q4h, PRN: as needed for fever, 0 Refill(s) acetaminophen 325 mg oral tablet: 650 mg, 2 tab(s), Oral, q4h, PRN: as needed for pain, 0 Refill(s) acetaminophen 650 mg rectal suppository: 650 mg, 1 supp, Rectal, q4h, PRN: as needed for fever, 0 Refill(s) acetaminophen 650 mg rectal suppository: 650 mg, 1 supp, Rectal, q4h, PRN: as needed for pain, 0 Refill(s) amLODIPine 5 mg oral tablet: 5 mg, 1 tab(s), Oral, qAM, 0 Refill(s) bisacodyl 10 mg rectal suppository: 10 mg, 1 supp, Rectal, qDay, PRN: as needed for constipation, 0Refill(s) guaiFENesin: 10 mL, Oral, q4h, PRN: for cough/congestion, 0 Refill(s) hydroCHLOROthiazide 50 mg oral tablet: 50 mg, 1 tab(s), Oral, qAM, 0 Refill(s) omeprazole 40 mg oral delayed release capsule: 40 mg, 1 cap(s), Oral, qAM, 0 Refill(s) pravastatin 40 mg oral tablet: 40 mg, 1 tab(s), Oral, qHS, 0 Refill(s) traMADol 50 mg oral tablet: 50 mg, 1 tab(s), Oral, q8h, PRN: chronic pain, 0 Refill(s), Medications (33) Active Scheduled: (17) acetaminophen 325 mg Tablet 650 mg 2 tab(s), Oral, QID albuterol 0.083% Soln UD (2.5mg/3 mL) 2.5 mg 3 mL, Inhalation, QIDRT allopurinol 100 mg tablet 100 mg 1 tab(s), Oral, qDay atorvastatin 10 mg tablet 10 mg 1 tab(s), Oral, qHS budesonide 0.25 mg/2 mL Susp UD 0.25 mg 2 mL, Inhalation, BIDRT cefepime in D5W PMX 2 gram(s) 50 mL, IV Piggyback, q12h dofetilide 250 mcg capsule 250 mcg 1 cap(s), Oral, BID duloxetine [address] Capsule 20 mg 1 cap(s), Oral, qAM insulin lispro 100 units/mL Soln (3 mL) Give 0-10 units/dose, Subcutaneous, TIDAC loratadine 10 mg Tablet 10 mg 1 tab(s), Oral, qDay metoprolol succinate 100 mg ER tablet 100 mg 1 tab(s), Oral, BID Nexletol 180 mg oral tablet 180 mg 1 tab(s), Oral, qDay omeprazole [address] capsule 40 mg 1 cap(s), Oral, qAM potassium chloride 20 mEq ER tablet 20 mEq 1 tab(s), Oral, qDay traZODONE 100 mg Tablet 100 mg 1 tab(s), Oral, qHS vancomycin PMX 2,000 mg 500 mL, IV Piggyback, q12h Vancomycin Trough level 1 EA, Miscellaneous, q12hr Continuous: (1) NS (0.9% nacl) 1,000 mL 1,000 mL, Intravenous, 75 mL/hr PRN: (15) acetaminophen-OXYcodone 325 mg-5 mg Tablet 1 tab(s), Oral, q4h Al hydrox/Mg hydrox/simethicone 200-200-20 mg/5 mL Susp UD 30 mL, Oral, q4h albuterol - ipratropium 2.5 mg-0.5 mg/3 mL Inhal Lisa UD 3 mL, Inhalation, q4hRT bisacodyl 10 mg Suppository 10 mg 1 supp, Rectal, qDay dextrose 50% Solution Disp syringe 50 mL 25 gram(s) 50 mL, IV Push, AsDirected guaifenesin 100 mg/5 mL Liquid 120 mL 200 mg 10 mL, Oral, q4h hydroxyzine pamoate 25 mg capsule 25 mg 1 cap(s), Oral, QID magnesium hydroxide 8% Suspension 30 mL UD 2.4 gram(s), Oral, qHS melatonin 3 mg tablet 3 mg 1 tab(s), Oral, qHS morphine 2 mg/mL 1 mL syringe 1 mg 0.5 mL, IV Push, q4h ondansetron 2 mg/ 1 mL 2 mL INJ 4 mg 2 mL, IV Push, q4h polyethylene glycol 3350 - UD packet 17 gram(s) 15 mL, Oral, qDay prochlorperazine 10 mg/2 mL vial 5 mg 1 mL, IV Push, q6h sodium biphosphate-sodium phosphate 19 gm-7 gm Enema 1 EA, Rectal, qDay tiZANidine 2 mg tablet 2 mg 1 tab(s), Oral, q8h Problem list: Medical Asthma exacerbation / SNOMED CT 8877365733 / Confirmed COPD exacerbation / SNOMED CT 3683069984 / Confirmed Atopic dermatitis / SNOMED CT 06416319 / Confirmed Atypical chest pain / SNOMED CT 022970944 / Confirmed Bacteremia / SNOMED CT 54666487 / Confirmed Morbid obesity with BMI of 40.0-44.9, adult / SNOMED CT 1176789580 / Confirmed Bronchitis / SNOMED CT 91773531 / Confirmed Cardiomyopathy / SNOMED CT 804952154 / Confirmed CHF with cardiomyopathy / SNOMED CT 80922860 / Confirmed Cough / SNOMED CT 42308632 / Confirmed Dental abscess / SNOMED CT 291654620 / Confirmed Depression / SNOMED CT 89226645 / Confirmed Dyspnea / SNOMED CT 498712083 / Confirmed Generalized anxiety disorder / SNOMED CT 74700235 / Confirmed Hypertension associated with type 2 diabetes mellitus / SNOMED CT 1904531600 / Confirmed Insomnia / SNOMED CT 496468891 / Confirmed LVH (left ventricular hypertrophy) / SNOMED CT 53463176 / Confirmed Moderate asthma / SNOMED CT 1980287133 / Confirmed Near syncope / SNOMED CT 4008105805 / Confirmed Chewing tobacco nicotine dependence / SNOMED CT 02630207 / Confirmed KOFFI (obstructive sleep apnea) / SNOMED CT 023787015 / Confirmed Right knee pain / SNOMED CT 5592370801 / Confirmed Paroxysmal atrial fibrillation / SNOMED CT 642215747 / Confirmed Screening for ischemic heart disease / SNOMED CT 760094610 / Confirmed Screening for colon cancer / SNOMED CT 395753912 / Confirmed Statin intolerance / SNOMED CT 7738971731 / Confirmed Tachyarrhythmia / SNOMED CT 22114606 / Confirmed Type 2 diabetes mellitus with hemoglobin A1c goal of less than 7.0% / SNOMED CT 638342901 / Confirmed Type 2 diabetes mellitus with hyperlipidemia / SNOMED CT 954185192 / Confirmed Resolved: Anxiety / SNOMED CT 08552020 Resolved: BMI 45.0-49.9, adult / SNOMED CT 4586533924 Resolved: Diabetes mellitus / SNOMED CT 240781242 Resolved: Hyperlipidemia / SNOMED CT 66295354 Resolved: Hypertension / SNOMED CT 0652640190 Resolved: Mass of arm / SNOMED CT 612339383 Resolved: Morbid obesity / SNOMED CT 339065548 Resolved: Obstructive sleep apnea / SNOMED CT 732492214 Resolved: Prediabetes / SNOMED CT 8358973031 Resolved: Right flank pain / SNOMED CT 152408737 Canceled: (HFpEF) heart failure with preserved ejection fraction / SNOMED CT 3251262980 Canceled: Right otitis media / SNOMED CT 925044880986823 Canceled: Persistent atrial fibrillation / SNOMED CT 4408994880 Canceled: Wheezing / SNOMED CT 48561597, Active Problems (33) Asthma exacerbation Atopic dermatitis Atrial fibrillation Atypical chest pain Bacteremia Bronchitis Cardiomyopathy Chewing tobacco nicotine dependence CHF [...] Histories Past Medical History: Resolved Morbid obesity (733870281): Resolved. Diabetes mellitus (999213482): Resolved. Hypertension (6479621542): Resolved. BMI 45.0-49.9, adult (5066038950): Resolved. Anxiety (06600576): Resolved. Prediabetes (0570112664): Resolved. Obstructive sleep apnea (937851946): Resolved. Right flank pain (823726091): Resolved. Hyperlipidemia (39406698): Resolved. Mass of arm (165889577): Resolved. Family History: Cancer Father Heart disease Mother Grandparent Stroke Father Procedure history: Excision ([id number]) on 03/25/2024 at 53 Years. 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 Cardioversion (106506166) on 12/23/2022 at 52 Years. Echocardiogram ([id number]) on 11/11/2022 at 52 Years. Comments: 03/20/2023 [...] atrial pressure is 15 mm Hg Elbow ([id number]). Comments: 07/11/2022 8:26 EST - Bharath, SHAHEEN warner - right Social History: Social & Psychosocial Habits Alcohol 12/24/2024 Use: Past Substance Abuse 12/24/2024 Use: Never Tobacco 12/24/2024 Tobacco Use: Former smoker, quit more, former chewer of tobacco Type: Oral (Snuff, Chew) Smokeless tobacco use: Former smokeless tobacco, stopped snuff October 2022 12/24/2024 Tobacco Use: Former smoker, quit more Home/Environment 12/24/2024 Living situation: Home/Independent Domestic Concerns None Lives In Single level home Nutrition/Health 12/24/2024 Type of diet: Regular Caffeine intake amount: no caffeine Appetite Good Eating Difficulties None Physical Examination Vital Signs (last 24 hrs) Last Charted Temp Oral37.0 DegC (DEC 24 14:59) Heart Rate Lzmjed65 bpm (DEC 24 08:10) XLG185 mmHg (DEC 24 14:59) DBP70 mmHg (DEC 24 14:59) BMI45.71 (DEC 24 00:46) General: Alert and oriented. Airway: Mallampati classification: II (soft palate, fauces, uvula visible). Dentition Evaluation: Intact. Respiratory: Lungs are clear to auscultation, Respirations are non-labored. Cardiovascular: Normal rate, Regular rhythm. Heart Sounds: Normal. Neurologic: Alert, Oriented. Review / Management Results review: Labs (Last four charted values) WBC 7.5(DEC 24)8.5(DEC 23) Hgb 14.3(DEC 24)15.5(DEC 23) Hct 44.1(DEC 24)47.5(DEC 23) Plt L 140(DEC 24)223(DEC 23) Na 137(DEC 24)L 133(DEC 23) K 3.7(DEC 24)4.8(DEC 23) CO2 32(DEC 24)31(DEC 23) Cl L 97(DEC 24)99(DEC 23) Cr 0.98(DEC 24)0.98(DEC 23) BUN 11.0(DEC 24)11.0(DEC 23) Glucose H 118(DEC 24)100(DEC 23) Mg 1.9(DEC 24) Ca 9.2(DEC 24)9.3(DEC 23) PT 13.8(DEC 24) INR 1.2(DEC 24) . Documentation reviewed: Current records. Assessment and Plan [place] [employer]esthesi[employer] (ASA) physical status classification: Class III. Anesthetic Preoperative Plan Premedication: intravenous. Anesthetic technique: MAC. Induction: intravenously. Maintenance airway: Mask. Postoperative pain management: Per surgeon. Risks discussed: nausea, vomiting, headache, sore throat, dental injury, hypotension, allergic reaction, serious complications. Informed consent: signed by patient. Notes: Patient seen and evaluated pre-operatively by Anesthesiologist. ASA 3 or greater due to the following comorbidities: Acute right ankle hardware infection in setting of history right ankle external fixator -Hypertension -Morbid obesity -Diabetes mellitus type II -Hyperlipidemia -Chronic paroxysmal atrial fibrillation -Gerd -Anxiety/depression -Chronic COPD not in exacerbation . Digitally Signed by CHANTAL WHEATLEY DO on 12/24/2024 04:37 PM [id number] Note Date of Service 12/24/24 Subjective 54 year old male admitted for infection rt ankle hardware. Cardiac history of dofetilide and anticoagulation. Objective Vitals and Measurements T: 37.0 C (Oral) TMIN: 36.7 C (Oral) TMAX: 37.0 C (Oral) HR: 64 RR: 16 BP: 106/70 SpO2: 90% HT: 175cm WT: 140 kg BMI: 45.71 Intake and Output 7AM Yesterday to 7AM Today Intake and Output (Last 24 hours) Intake Oral Intake 0.00 Output Urine Output Initial 900.00 Stool Count 0.00 Total Summary Total Intake 0.00 Total Output 900.00 Fluid Balance -900.00 Physical Exam Weight Dosing Weight: 140 kg (12/24/24) Medications Medications (33) Active Scheduled: (17) acetaminophen 325 mg Tablet 650 mg 2 tab(s), Oral, QID albuterol 0.083% Soln UD (2.5mg/3 mL) 2.5 mg 3 mL, Inhalation, QIDRT allopurinol 100 mg tablet 100 mg 1 tab(s), Oral, qDay atorvastatin 10 mg tablet 10 mg 1 tab(s), Oral, qHS budesonide 0.25 mg/2 mL Susp UD 0.25 mg 2 mL, Inhalation, BIDRT cefepime in D5W PMX 2 gram(s) 50 mL, IV Piggyback, q12h dofetilide 250 mcg capsule 250 mcg 1 cap(s), Oral, BID duloxetine [address] Capsule 20 mg 1 cap(s), Oral, qAM insulin lispro 100 units/mL Soln (3 mL) Give 0-10 units/dose, Subcutaneous, TIDAC loratadine 10 mg Tablet 10 mg 1 tab(s), Oral, qDay metoprolol succinate 100 mg ER tablet 100 mg 1 tab(s), Oral, BID Nexletol 180 mg oral tablet 180 mg 1 tab(s), Oral, qDay omeprazole [address] capsule 40 mg 1 cap(s), Oral, qAM potassium chloride 20 mEq ER tablet 20 mEq 1 tab(s), Oral, qDay traZODONE 100 mg Tablet 100 mg 1 tab(s), Oral, qHS vancomycin PMX 2,000 mg 500 mL, IV Piggyback, q12h Vancomycin Trough level 1 EA, Miscellaneous, q12hr Continuous: (1) NS (0.9% nacl) 1,000 mL 1,000 mL, Intravenous, 100 mL/hr PRN: (15) acetaminophen-OXYcodone 325 mg-5 mg Tablet 1 tab(s), Oral, q4h Al hydrox/Mg hydrox/simethicone 200-200-20 mg/5 mL Susp UD 30 mL, Oral, q4h albuterol - ipratropium 2.5 mg-0.5 mg/3 mL Inhal Lisa UD 3 mL, Inhalation, q4hRT bisacodyl 10 mg Suppository 10 mg 1 supp, Rectal, qDay dextrose 50% Solution Disp syringe 50 mL 25 gram(s) 50 mL, IV Push, AsDirected guaifenesin 100 mg/5 mL Liquid 120 mL 200 mg 10 mL, Oral, q4h hydroxyzine pamoate 25 mg capsule 25 mg 1 cap(s), Oral, QID magnesium hydroxide 8% Suspension 30 mL UD 2.4 gram(s), Oral, qHS melatonin 3 mg tablet 3 mg 1 tab(s), Oral, qHS morphine 2 mg/mL 1 mL syringe 1 mg 0.5 mL, IV Push, q4h ondansetron 2 mg/ 1 mL 2 mL INJ 4 mg 2 mL, IV Push, q4h polyethylene glycol 3350 - UD packet 17 gram(s) 15 mL, Oral, qDay prochlorperazine 10 mg/2 mL vial 5 mg 1 mL, IV Push, q6h sodium biphosphate-sodium phosphate 19 gm-7 gm Enema 1 EA, Rectal, qDay tiZANidine 2 mg tablet 2 mg 1 tab(s), Oral, q8h Lab Results 12/24 04:15 WBC: 7.5 Hgb: 14.3 Hct: 44.1 Platelet: 140 L Neutrophil %: 72.6 Protime: 13.8 PT International Ratio: 1.2 Glucose Level: 118 H Sodium Level: 137 Potassium Level: 3.7 BUN: 11.0 Creatinine Lvl (s): 0.98 12/23 20:06 WBC: 8.5 Hgb: 15.5 Hct: 47.5 Platelet: 223 Neutrophil %: 70.9 Glucose Level: 100 Sodium Level: 133 L Potassium Level: 4.8 BUN: 11.0 Creatinine Lvl (s): 0.98 Imaging Results and Diagnostics XR Ankle Minimum 3 Views Left Result Date: December 23, 2024 Verified By: TRACE FIERRO MD CLINICAL STATEMENT: IMPRESSION: Similar alignment of distal fibular/lateral malleolar fracture withsurrounding reparative changes. I have personally reviewed the images of this examination and agree with theresident's findings and interpretation. XR Ankle Minimum 3 Views Right Result Date: December 23, 2024 Verified By: MICK LEGGETT MD CLINICAL STATEMENT: IMPRESSION: External fixation hardware is similarly positioned. Small area of bonylucency surrounding the calcaneal hardware, which was not definitivelyidentified on prior, and can be seen with developing perihardware infection. Stable appearance of mildly displaced distal fibular spiral fracture withminimal healing changes. Soft tissue swelling surrounding the ankle. I have personally reviewed the images of this examination and agree with theresident's findings and interpretation. EKG No qualifying data available. Assessment/Plan -Acute right ankle hardware infection in setting of history right ankle external fixator -Hypertension -Morbid obesity -Diabetes mellitus type II -Hyperlipidemia -Chronic paroxysmal atrial fibrillation -Gerd -Anxiety/depression -Chronic COPD not in exacerbation ID consult for complicated infection in setting of external fixator. Holding off rifampin due to patient being on dofetilide. Orthopedics following. Hold amlodipine for BP. Continue current diabetic regimen. Continue current IVF, reduce rate to 75cc. Level of Care Indication Regular Floor DVT Prophylaxis Suspended for procedure Maintenance IVF Indication NA / No maintenance IVF Indwelling Urinary Catheter Indication NA No indwelling catheter Anticipated Timeline of Discharge 48 hours Anticipated DC Disposition SNF Digitally Signed by PERNELL DEWITT MD on 12/24/2024 03:54 PM [id number] Infectious disease Consult note Date of Service 12/24/2024 Reason for Consultation Right ankle hardware infection Referring Physician Dr. Max History of Present Illness Patient is a 54-year-old male with past medical history of COPD, tobacco abuse, atrial fibrillation, type 2 diabetes, recent right ankle fracture requiring external fixation presents as a transfer from [place] on 12/23/2024 with worsening swelling, redness and pain of his right ankle. Recently seenby our service for MSSA bacteremia secondary to surgical wound infection of the right ankle/external fixator and was discharged on 2 weeks of oral Keflex 500 mg p.o. every 6 hours with end date of December 09, 2024. At that time, NELDA was negative for vegetation. He was to follow-up with orthopedics as an outpatient for removal of his external fixator which he did not make his appointment as he was at [facility]. He states that he did not finish his full antibiotic course as he was having family issues and had moved out of his home. Upon arrival, patient was found to be hemodynamically stable with normal lab work. X-ray of the left ankle shows similar alignment of distal fibular/lateral malleolus fracture with surrounding reparative changes, x-ray of the right ankle shows external fixation hardware with small bony lucencies surrounding the calcaneal hardware can be seen with perihardware infection, soft tissue swelling of the ankle. Orthopedics is planning for right ankle removal of external fixator with possible ORIF today. Blood cultures pending with no growth to date. Empirically on cefepime, vancomycin. ID on board for right ankle hardware infection. Patient seen and independently evaluated the bedside. He is resting in bed comfortably in no acute distress. Complains of right ankle pain, swelling and erythema. No fever, chills or night sweats. Nonausea, vomiting or diarrhea. No abdominal pain. No back or joint pain. Review of Systems Pertinent positives included within the HPI. Physical Exam Vitals and Measurements T: 36.8 C (Oral) TMIN: 36.7 C (Oral) TMAX: 36.8 C (Oral) HR: 71 RR: 16 BP: 120/74 SpO2: 90% HT: 175cm WT: 140 kg BMI: 45.71 Weight Dosing Weight: 140 kg (12/24/24) General: No acute distress. Alert and Appropriate Skin: Right ankle with external fixator with significant swelling, erythema around the top pins with purulence noted HEENT: Head is normocephalic and atraumatic. No [...] simple commands, moving all extremities. Lab Results 12/24 04:15 WBC: 7.5 Hgb: 14.3 Hct: 44.1 Platelet: 140 L Neutrophil %: 72.6 Protime: 13.8 PT International Ratio: 1.2 Glucose Level: 118 H Sodium Level: 137 Potassium Level: 3.7 BUN: 11.0 Creatinine Lvl (s): 0.98 12/23 20:06 WBC: 8.5 Hgb: 15.5 Hct: 47.5 Platelet: 223 Neutrophil %: 70.9 Glucose Level: 100 Sodium Level: 133 L Potassium Level: 4.8 BUN: 11.0 Creatinine Lvl (s): 0.98 Imaging Results and Diagnostics XR Ankle Minimum 3 Views Left Result Date: December 23, 2024 Verified By: TRACE FIERRO MD CLINICAL STATEMENT: IMPRESSION: Similar alignment of distal fibular/lateral malleolar fracture withsurrounding reparative changes. I have personally reviewed the images of this examination and agree with theresident's findings and interpretation. XR Ankle Minimum 3 Views Right Result Date: December 23, 2024 Verified By: MICK LEGGETT MD CLINICAL STATEMENT: IMPRESSION: External fixation hardware is similarly positioned. Small area of bonylucency surrounding the calcaneal hardware, which was not definitivelyidentified on prior, and can be seen with developing perihardware infection. Stable appearance of mildly displaced distal fibular spiral fracture withminimal healing changes. Soft tissue swelling surrounding the ankle. I have personally reviewed the images of this examination and agree with theresident's findings and interpretation. Assessment/Plan Right ankle hardware infection Right ankle cellulitis Recent MSSA bacteremia Type 2 diabetes Recent right ankle fracture requiring external fixation Patient is a 54-year-old male with history of COPD, tobacco abuse, atrial fibrillation, type 2 diabetes, recent right ankle fracture requiring external fixation presents to the hospital on 12/23/2024 with worsening swelling, redness and pain of his right ankle. Recently seen by our service for MSSA bacteremia secondary to surgical site infection of the right ankle select external fixator was discharged on 2 weeks of oral Keflex 500 mg p.o. every 6 hours at the need of December 09, 2024. X-ray of theleft ankle shows external fixator hardware surrounding the calcaneal hardware with concern for infection. ID on board for right ankle hardware infection. #1 right ankle hardware infection. X-ray of the right ankle personally reviewed. Orthopedics planning on right ankle removal of external fixator with possible ORIF today. He is clinically improving, no fever or leukocytosis. Blood cultures are pending with no growth today. Await OR with orthopedics, recommend intraoperative cultures. Continue cefepime, vancomycin. Plan of care discussed in depth with patient. All questions answered. This is a shared/split visit with my collaborating physician Dr. Te Casey. Any changes to the plan will be added to end as an addendum. Problem List/Past Medical History Ongoing Asthma exacerbation Atopic dermatitis Atypical chest pain Bacteremia Bronchitis Cardiomyopathy Chewing tobacco nicotine dependence CHF [...] Cardioversion: 12/23/22 Echocardiogram: 11/11/22 Elbow Medications Inpatient Al hydroxide/Mg hydroxide/simethicone 200 mg-200 mg-20 mg/5 mL oral suspension, 30 mL, Oral, q4h, PRN albuterol 2.5 mg/3 mL (0.083%) inhalation solution, 2.5 mg= 3 mL, Inhalation, QIDRT Aldactone, 25 mg= 1 tab(s), Oral, qDayM allopurinol, 100 mg= 1 tab(s), Oral, qDay amLODIPine, 5 mg= 1 tab(s), Oral, qAM atorvastatin, 10 mg= 1 tab(s), Oral, qHS bisacodyl, 10 mg= 1 supp, Rectal, qDay, PRN cefepime, 2 gram(s)= 50 mL, IV Piggyback, q12h Dextrose 50% IV Push, 25 gram(s)= 50 mL, IV Push, AsDirected, PRN DULoxetine, 20 mg= 1 cap(s), Oral, qAM DuoNeb, 3 mL, Inhalation, q4hRT, PRN Fleet Enema, 1 EA, Rectal, qDay, PRN guaiFENesin, 200 mg= 10 mL, Oral, q4h, PRN HumaLOG 100 units/mL subcutaneous solution, Give 0-10 units/dose, Subcutaneous, TIDAC loratadine, 10 mg= 1 tab(s), Oral, qDay melatonin, 3 mg= 1 tab(s), Oral, qHS, PRN Milk of Magnesia, 2.4 gram(s), Oral, qHS, PRN Miralax Powder Packet, 17 gram(s)= 15 mL, Oral, qDay, PRN morphine, 1 mg= 0.5 mL, IV Push, q4h, PRN Nexletol 180 mg oral tablet, 180 mg= 1 tab(s), Oral, qDay NS 1,000 mL, 1000 mL, Intravenous omeprazole, 40 mg= 1 cap(s), Oral, qAM Percocet 325/5, 1 tab(s), Oral, q4h, PRN potassium chloride extended release, 20 mEq= 1 tab(s), Oral, qDay prochlorperazine, 5 mg= 1 mL, IV Push, q6h, PRN Pulmicort Respules 0.25 mg/2 mL inhalation suspension, 0.25 mg= 2 mL, Inhalation, BIDRT Tikosyn, 250 mcg= 1 cap(s), Oral, BID tiZANidine, 2 mg= 1 tab(s), Oral, q8h, PRN Toprol-XL, 100 mg= 1 tab(s), Oral, BID traZODone, 100 mg= 1 tab(s), Oral, qHS Tylenol, 650 mg= 2 tab(s), Oral, QID vancomycin, 2000 mg= 500 mL, IV Piggyback, q12h Vancomycin - TROUGH reminder, 1 EA, Miscellaneous, q12hr Vistaril, 25 mg= 1 cap(s), Oral, QID, PRN Zofran, 4 mg= 2 mL, IV Push, q4h, PRN Home acetaminophen 325 mg oral tablet, 650 mg= 2 tab(s), Oral, q4h, PRN acetaminophen 325 mg oral tablet, 650 mg= 2 tab(s), Oral, q4h, PRN acetaminophen 650 mg rectal suppository, 650 mg= 1 supp, Rectal, q4h, PRN acetaminophen 650 mg rectal suppository, 650 mg= 1 supp, Rectal, q4h, PRN Advair Diskus 100 mcg-50 mcg/inh inhalation powder, 1 inh, Inhalation, BID Al hydroxide/Mg hydroxide/simethicone 200 mg-200 mg-20 mg/5 mL oral suspension, 30 mL, Oral, q4h, PRN albuterol 2.5 mg/3 mL (0.083%) inhalation solution, 2.5 mg= 3 mL, Inhalation, q6h allopurinol 100 mg oral tablet, 100 mg= 1 tab(s), Oral, qDay, 3 refills amLODIPine 5 mg oral tablet, 5 mg= 1 tab(s), Oral, qAM bisacodyl 10 mg rectal suppository, 10 mg= 1 supp, Rectal, qDay, PRN cetirizine 10 mg oral tablet, 10 mg= 1 tab(s), Oral, Daily, 3 refills DULoxetine 20 mg oral delayed release capsule, 20 mg= 1 cap(s), Oral, qAM Fleet Enema 19 g-7 g/118 mL rectal enema, 1 EA, Rectal, qDay, PRN GlucaGen 1 mg injection, 1 mg, Intramuscular, Once, PRN Gluco-To-Go 40% oral gel, 1 dose, Oral, Once, PRN guaiFENesin, 10 mL, Oral, q4h, PRN hydroCHLOROthiazide 50 mg oral tablet, 50 mg= 1 tab(s), Oral, qAM Milk of Magnesia 8% oral suspension, 2.4 gram(s)= 30 mL, Oral, qHS, PRN Nexletol 180 mg oral tablet, 180 mg= 1 tab(s), Oral, qDay, 5 refills omeprazole 40 mg oral delayed release capsule, 40 mg= 1 cap(s), Oral, qAM Potassium Chloride (Eqv-K-Tab) 20 mEq oral tablet, extended release, 20 mEq= 1 tab(s), Oral, qDay, 3 refills pravastatin 40 mg oral tablet, 40 mg= 1 tab(s), Oral, qHS spironolactone 25 mg oral tablet, 25 mg= 1 tab(s), Oral, qDay, 3 refills Tikosyn 250 mcg oral capsule, 250 mcg= 1 cap(s), Oral, BID, 4 refills tiZANidine 2 mg oral tablet, 2 mg= 1 tab(s), Oral, q8h, PRN, 3 refills Toprol-XL 100 mg oral tablet, extended release, 100 mg= 1 tab(s), Oral, BID traMADol 50 mg oral tablet, 50 mg= 1 tab(s), Oral, q8h, PRN traZODone 100 mg oral tablet, 100 mg= 1 tab(s), Oral, qHS, 3 refills Trulicity Pen 1.5 mg/0.5 mL subcutaneous solution, 1.5 mg, Subcutaneous, qWeek, 3 refills Vistaril 25 mg oral capsule, 25 mg= 1 cap(s), Oral, QID, PRN, 3 refills Xarelto 20 mg oral tablet, 20 mg= 1 tab(s), Oral, qHS, 11 refills Allergies Contrast dye Statins myalgia Social History Alcohol Use: Past., [...] (08/14/20) Digitally Signed by ORI TOMLIN on 12/24/2024 03:13 PM [id number] Infectious disease Consult note Date of Service 12/24/2024 Reason for Consultation Right ankle hardware infection Referring Physician Dr. Max History of Present Illness Patient is a 54-year-old male with past medical history of COPD, tobacco abuse, atrial fibrillation, type 2 diabetes, recent right ankle fracture requiring external fixation presents as a transfer from [place] on 12/23/2024 with worsening swelling, redness and pain of his right ankle. Recently seenby our service for MSSA bacteremia secondary to surgical wound infection of the right ankle/external fixator and was discharged on 2 weeks of oral Keflex 500 mg p.o. every 6 hours with end date of December 09, 2024. At that time, NELDA was negative for vegetation. He was to follow-up with orthopedics as an outpatient for removal of his external fixator which he did not make his appointment as he was at [facility]. He states that he did not finish his full antibiotic course as he was having family issues and had moved out of his home. Upon arrival, patient was found to be hemodynamically stable with normal lab work. X-ray of the left ankle shows similar alignment of distal fibular/lateral malleolus fracture with surrounding reparative changes, x-ray of the right ankle shows external fixation hardware with small bony lucencies surrounding the calcaneal hardware can be seen with perihardware infection, soft tissue swelling of the ankle. Orthopedics is planning for right ankle removal of external fixator with possible ORIF today. Blood cultures pending with no growth to date. Empirically on cefepime, vancomycin. ID on board for right ankle hardware infection. Patient seen and independently evaluated the bedside. He is resting in bed comfortably in no acute distress. Complains of right ankle pain, swelling and erythema. No fever, chills or night sweats. Nonausea, vomiting or diarrhea. No abdominal pain. No back or joint pain. Review of Systems Pertinent positives included within the HPI. Physical Exam Vitals and Measurements T: 36.8 C (Oral) TMIN: 36.7 C (Oral) TMAX: 36.8 C (Oral) HR: 71 RR: 16 BP: 120/74 SpO2: 90% HT: 175cm WT: 140 kg BMI: 45.71 Weight Dosing Weight: 140 kg (12/24/24) General: No acute distress. Alert and Appropriate Skin: Right ankle with external fixator with significant swelling, erythema around the top pins with purulence noted HEENT: Head is normocephalic and atraumatic. No [...] simple commands, moving all extremities. Lab Results 12/24 04:15 WBC: 7.5 Hgb: 14.3 Hct: 44.1 Platelet: 140 L Neutrophil %: 72.6 Protime: 13.8 PT International Ratio: 1.2 Glucose Level: 118 H Sodium Level: 137 Potassium Level: 3.7 BUN: 11.0 Creatinine Lvl (s): 0.98 12/23 20:06 WBC: 8.5 Hgb: 15.5 Hct: 47.5 Platelet: 223 Neutrophil %: 70.9 Glucose Level: 100 Sodium Level: 133 L Potassium Level: 4.8 BUN: 11.0 Creatinine Lvl (s): 0.98 Imaging Results and Diagnostics XR Ankle Minimum 3 Views Left Result Date: December 23, 2024 Verified By: TRACE FIERRO MD CLINICAL STATEMENT: IMPRESSION: Similar alignment of distal fibular/lateral malleolar fracture withsurrounding reparative changes. I have personally reviewed the images of this examination and agree with theresident's findings and interpretation. XR Ankle Minimum 3 Views Right Result Date: December 23, 2024 Verified By: MICK LEGGETT MD CLINICAL STATEMENT: IMPRESSION: External fixation hardware is similarly positioned. Small area of bonylucency surrounding the calcaneal hardware, which was not definitivelyidentified on prior, and can be seen with developing perihardware infection. Stable appearance of mildly displaced distal fibular spiral fracture withminimal healing changes. Soft tissue swelling surrounding the ankle. I have personally reviewed the images of this examination and agree with theresident's findings and interpretation. Assessment/Plan Right ankle hardware infection Right ankle cellulitis Recent MSSA bacteremia Type 2 diabetes Recent right ankle fracture requiring external fixation Patient is a 54-year-old male with history of COPD, tobacco abuse, atrial fibrillation, type 2 diabetes, recent right ankle fracture requiring external fixation presents to the hospital on 12/23/2024 with worsening swelling, redness and pain of his right ankle. Recently seen by our service for MSSA bacteremia secondary to surgical site infection of the right ankle select external fixator was discharged on 2 weeks of oral Keflex 500 mg p.o. every 6 hours at the need of December 09, 2024. X-ray of theleft ankle shows external fixator hardware surrounding the calcaneal hardware with concern for infection. ID on board for right ankle hardware infection. #1 right ankle hardware infection. X-ray of the right ankle personally reviewed. Orthopedics planning on right ankle removal of external fixator with possible ORIF today. He is clinically improving, no fever or leukocytosis. Blood cultures are pending with no growth today. Await OR with orthopedics, recommend intraoperative cultures. Continue cefepime, vancomycin. Plan of care discussed in depth with patient. All questions answered. This is a shared/split visit with my collaborating physician Dr. Te Casey. Any changes to the plan will be added to end as an addendum. Problem List/Past Medical History Ongoing Asthma exacerbation Atopic dermatitis Atypical chest pain Bacteremia Bronchitis Cardiomyopathy Chewing tobacco nicotine dependence CHF [...] Cardioversion: 12/23/22 Echocardiogram: 11/11/22 Elbow Medications Inpatient Al hydroxide/Mg hydroxide/simethicone 200 mg-200 mg-20 mg/5 mL oral suspension, 30 mL, Oral, q4h, PRN albuterol 2.5 mg/3 mL (0.083%) inhalation solution, 2.5 mg= 3 mL, Inhalation, QIDRT Aldactone, 25 mg= 1 tab(s), Oral, qDayM allopurinol, 100 mg= 1 tab(s), Oral, qDay amLODIPine, 5 mg= 1 tab(s), Oral, qAM atorvastatin, 10 mg= 1 tab(s), Oral, qHS bisacodyl, 10 mg= 1 supp, Rectal, qDay, PRN cefepime, 2 gram(s)= 50 mL, IV Piggyback, q12h Dextrose 50% IV Push, 25 gram(s)= 50 mL, IV Push, AsDirected, PRN DULoxetine, 20 mg= 1 cap(s), Oral, qAM DuoNeb, 3 mL, Inhalation, q4hRT, PRN Fleet Enema, 1 EA, Rectal, qDay, PRN guaiFENesin, 200 mg= 10 mL, Oral, q4h, PRN HumaLOG 100 units/mL subcutaneous solution, Give 0-10 units/dose, Subcutaneous, TIDAC loratadine, 10 mg= 1 tab(s), Oral, qDay melatonin, 3 mg= 1 tab(s), Oral, qHS, PRN Milk of Magnesia, 2.4 gram(s), Oral, qHS, PRN Miralax Powder Packet, 17 gram(s)= 15 mL, Oral, qDay, PRN morphine, 1 mg= 0.5 mL, IV Push, q4h, PRN Nexletol 180 mg oral tablet, 180 mg= 1 tab(s), Oral, qDay NS 1,000 mL, 1000 mL, Intravenous omeprazole, 40 mg= 1 cap(s), Oral, qAM Percocet 325/5, 1 tab(s), Oral, q4h, PRN potassium chloride extended release, 20 mEq= 1 tab(s), Oral, qDay prochlorperazine, 5 mg= 1 mL, IV Push, q6h, PRN Pulmicort Respules 0.25 mg/2 mL inhalation suspension, 0.25 mg= 2 mL, Inhalation, BIDRT Tikosyn, 250 mcg= 1 cap(s), Oral, BID tiZANidine, 2 mg= 1 tab(s), Oral, q8h, PRN Toprol-XL, 100 mg= 1 tab(s), Oral, BID traZODone, 100 mg= 1 tab(s), Oral, qHS Tylenol, 650 mg= 2 tab(s), Oral, QID vancomycin, 2000 mg= 500 mL, IV Piggyback, q12h Vancomycin - TROUGH reminder, 1 EA, Miscellaneous, q12hr Vistaril, 25 mg= 1 cap(s), Oral, QID, PRN Zofran, 4 mg= 2 mL, IV Push, q4h, PRN Home acetaminophen 325 mg oral tablet, 650 mg= 2 tab(s), Oral, q4h, PRN acetaminophen 325 mg oral tablet, 650 mg= 2 tab(s), Oral, q4h, PRN acetaminophen 650 mg rectal suppository, 650 mg= 1 supp, Rectal, q4h, PRN acetaminophen 650 mg rectal suppository, 650 mg= 1 supp, Rectal, q4h, PRN Advair Diskus 100 mcg-50 mcg/inh inhalation powder, 1 inh, Inhalation, BID Al hydroxide/Mg hydroxide/simethicone 200 mg-200 mg-20 mg/5 mL oral suspension, 30 mL, Oral, q4h, PRN albuterol 2.5 mg/3 mL (0.083%) inhalation solution, 2.5 mg= 3 mL, Inhalation, q6h allopurinol 100 mg oral tablet, 100 mg= 1 tab(s), Oral, qDay, 3 refills amLODIPine 5 mg oral tablet, 5 mg= 1 tab(s), Oral, qAM bisacodyl 10 mg rectal suppository, 10 mg= 1 supp, Rectal, qDay, PRN cetirizine 10 mg oral tablet, 10 mg= 1 tab(s), Oral, Daily, 3 refills DULoxetine 20 mg oral delayed release capsule, 20 mg= 1 cap(s), Oral, qAM Fleet Enema 19 g-7 g/118 mL rectal enema, 1 EA, Rectal, qDay, PRN GlucaGen 1 mg injection, 1 mg, Intramuscular, Once, PRN Gluco-To-Go 40% oral gel, 1 dose, Oral, Once, PRN guaiFENesin, 10 mL, Oral, q4h, PRN hydroCHLOROthiazide 50 mg oral tablet, 50 mg= 1 tab(s), Oral, qAM Milk of Magnesia 8% oral suspension, 2.4 gram(s)= 30 mL, Oral, qHS, PRN Nexletol 180 mg oral tablet, 180 mg= 1 tab(s), Oral, qDay, 5 refills omeprazole 40 mg oral delayed release capsule, 40 mg= 1 cap(s), Oral, qAM Potassium Chloride (Eqv-K-Tab) 20 mEq oral tablet, extended release, 20 mEq= 1 tab(s), Oral, qDay, 3 refills pravastatin 40 mg oral tablet, 40 mg= 1 tab(s), Oral, qHS spironolactone 25 mg oral tablet, 25 mg= 1 tab(s), Oral, qDay, 3 refills Tikosyn 250 mcg oral capsule, 250 mcg= 1 cap(s), Oral, BID, 4 refills tiZANidine 2 mg oral tablet, 2 mg= 1 tab(s), Oral, q8h, PRN, 3 refills Toprol-XL 100 mg oral tablet, extended release, 100 mg= 1 tab(s), Oral, BID traMADol 50 mg oral tablet, 50 mg= 1 tab(s), Oral, q8h, PRN traZODone 100 mg oral tablet, 100 mg= 1 tab(s), Oral, qHS, 3 refills Trulicity Pen 1.5 mg/0.5 mL subcutaneous solution, 1.5 mg, Subcutaneous, qWeek, 3 refills Vistaril 25 mg oral capsule, 25 mg= 1 cap(s), Oral, QID, PRN, 3 refills Xarelto 20 mg oral tablet, 20 mg= 1 tab(s), Oral, qHS, 11 refills Allergies Contrast dye Statins myalgia Social History Alcohol Use: Past., [...] (08/14/20) Digitally Signed by ORI TOMLIN on 12/24/2024 03:13 PM [id number] Note Date of Service Patient medically optimized for surgical intervention. Adjusted antibiotics from vanc zosyn to vanc cefepime. Hes on dofetilide which would make rifampin contraindicated. I consulted ID for recs on antibioticsif rifampin would offer great benefit to patient then potentially we can move to tele for monitoring and consult cardio to figure out another regimen, if no significant benefit will continue care on current level. Digitally Signed by PERNELL DEWITT MD on 12/24/2024 07:21 AM [id number] Note. MICRO - Microbiology PROCEDURE: Blood Culture (bacterial) [*1] SOURCE: Blood BODY SITE: COLLECTED DATE/TIME: 12/24/2024 04:15 EDT RECEIVED DATE/TIME: 12/24/2024 05:27 EDT START DATE/TIME: 12/24/2024 05:27 EDT FREE TEXT SOURCE: PRELIMINARY REPORTS Preliminary Report [] Verified Date/Time/Personnel: 12/24/2024 05:59 EDT Culture has been received in lab and is no growth to date. Routine cultures are held for 5 days. Performing Locations *1: This test was performed at: [facility], [address] [place] [address], [id number] , [id number] Note. MICRO - Microbiology PROCEDURE: Blood Culture (bacterial) [*1] SOURCE: Blood BODY SITE: COLLECTED DATE/TIME: 12/24/2024 04:15 EDT RECEIVED DATE/TIME: 12/24/2024 05:27 EDT START DATE/TIME: 12/24/2024 05:27 EDT FREE TEXT SOURCE: PRELIMINARY REPORTS Preliminary Report [] Verified Date/Time/Personnel: 12/24/2024 05:59 EDT Culture has been received in lab and is no growth to date. Routine cultures are held for 5 days. Performing Locations *1: This test was performed at: [facility], [address] [place] [address], [id number] , [facility] [id number] History and physical note [facility] Hospitalist History and Physical Date of Admission: patient is being admitted on December 23, 2024 Chief complaint: right ankle infection History of present illness: History is taken from talking with emergency room physician Dr. her as well as talking with the patient. Patient has a past medical history of morbid obesity, hypertension, diabetes mellitus type II, hyperlipidemia, atrial fibrillation on Xarelto, Gerd, bacteremia, anxiety/depression, COPD, ankle fracture status post external fixator. Readmission documentation. This was discussed with emergency room physician Dr. georgi Leblanc. Patient was last discharged from here on November 28, 2024 and during that admission the patient was here for atrial fibrillation with rapid ventricular response as well as bacteremia. Patient was evaluated by infectious disease. They did do a NELDA that was negative for endocarditis. Patient was discharged on cephalexin. Patient was sent to the emergency room after he noted to have worsening swelling and redness and pain of his right ankle. The patient was supposed to follow up with orthopedic surgery for removal of the external fixator however the patient did not follow up due to having heart issues. Patient denies fevers, chills or night sweats. Since presenting to the emergency room the patient has been afebrile, hemodynamically stable, 93% room air. The following labs and imaging were personally reviewed CBC within normal limits lactic acid 1.0 In emergency room they ordered blood cultures and the patient was given morphine, Zofran, Zosyn, vancomycin. Past medical history: Asthma exacerbation Atopic dermatitis Atrial fibrillation Atypical chest pain Bacteremia Bronchitis CHF with cardiomyopathy COPD exacerbation Cardiomyopathy Chewing tobacco nicotine dependence Cough Dental abscess Depression Dyspnea GERD (gastroesophageal reflux disease) Generalized anxiety disorder Gout HTN (hypertension) Hypertension associated with type [...] 7.0% Type 2 diabetes mellitus with hyperlipidemia Excision: 03/25/24 Echocardiogram: 01/31/24 Cardioversion: 12/23/22 Echocardiogram: 11/11/22 Elbow Family history: Mother: Heart disease Father: Cancer; Stroke Grandparent: Heart disease Social history: Denies smoking cigarettes or alcohol consumption Medications: Home Medications (31) Active acetaminophen 325 mg oral tablet 650 mg = 2 tab(s), PRN, Oral, q4h acetaminophen 325 mg oral tablet 650 mg = 2 tab(s), PRN, Oral, q4h acetaminophen 650 mg rectal suppository 650 mg = 1 supp, PRN, Rectal, q4h acetaminophen 650 mg rectal suppository 650 mg = 1 supp, PRN, Rectal, q4h Advair Diskus 100 mcg-50 mcg/inh inhalation powder 1 inh, Inhalation, BID Al hydroxide/Mg hydroxide/simethicone 200 mg-200 mg-20 mg/5 mL oral suspension 30 mL, PRN, Oral, q4h albuterol 2.5 mg/3 mL (0.083%) inhalation solution 2.5 mg = 3 mL, Inhalation, q6h allopurinol 100 mg oral tablet 100 mg = 1 tab(s), Oral, qDay amLODIPine 5 mg oral tablet 5 mg = 1 tab(s), Oral, qAM bisacodyl 10 mg rectal suppository 10 mg = 1 supp, PRN, Rectal, qDay cetirizine 10 mg oral tablet 10 mg = 1 tab(s), Oral, Daily DULoxetine 20 mg oral delayed release capsule 20 mg = 1 cap(s), Oral, qAM Fleet Enema 19 g-7 g/118 mL rectal enema 1 EA, PRN, Rectal, qDay GlucaGen 1 mg injection 1 mg, PRN, Intramuscular, Once Gluco-To-Go 40% oral gel 1 dose, PRN, Oral, Once guaiFENesin 10 mL, PRN, Oral, q4h hydroCHLOROthiazide 50 mg oral tablet 50 mg = 1 tab(s), Oral, qAM Milk of Magnesia 8% oral suspension 2.4 gram(s) = 30 mL, PRN, Oral, qHS Nexletol 180 mg oral tablet 180 mg = 1 tab(s), Oral, qDay omeprazole 40 mg oral delayed release capsule 40 mg = 1 cap(s), Oral, qAM Potassium Chloride (Eqv-K-Tab) 20 mEq oral tablet, extended release 20 mEq = 1 tab(s), Oral, qDay pravastatin 40 mg oral tablet 40 mg = 1 tab(s), Oral, qHS spironolactone 25 mg oral tablet 25 mg = 1 tab(s), Oral, qDay Tikosyn 250 mcg oral capsule 250 mcg = 1 cap(s), Oral, BID tiZANidine 2 mg oral tablet 2 mg = 1 tab(s), PRN, Oral, q8h Toprol-XL 100 mg oral tablet, extended release 100 mg = 1 tab(s), Oral, BID traMADol 50 mg oral tablet 50 mg = 1 tab(s), PRN, Oral, q8h traZODone 100 mg oral tablet 100 mg = 1 tab(s), Oral, qHS Trulicity Pen 1.5 mg/0.5 mL subcutaneous solution 1.5 mg, Subcutaneous, qWeek Vistaril 25 mg oral capsule 25 mg = 1 cap(s), PRN, Oral, QID Xarelto 20 mg oral tablet 20 mg = 1 tab(s), Oral, qHS Allergies: Contrast dye Statins (myalgia) Review of systems: See HPI for pertinent positives and negatives. All other review of systems have been reviewed and they are negative. Vitals Signs(Last 24 hrs)__Last Charted Minimum Maximum [id number](DEC 23 17:42)132(DEC 23 17:42)132(DEC 23 17:42) DBP83(DEC 23 17:42)83(DEC 23 17:42)83(DEC 23 17:42) Physical examination: HEENT: No Pallor, No Icterus Cardiac: RRR, No murmur Lungs: CTA, good air entry Abdomen: Soft Non tender Musculoskeletal: right ankle swelling and tenderness and erythema concerning for infection Extremities: No edema, good pulses Neurological: Alert, no deficits Skin: No rash, no nodules Labs: WBC: 8.5 10^3/mcL (12/23/24 20:06:00) RBC: 5.59 10^6/mcL (12/23/24 20:06:00) Hgb: 15.5 G/dL (12/23/24 20:06:00) Hct: 47.5 % (12/23/24 20:06:00) MCV: 85 fL (12/23/24 20:06:00) MCH: 27.7 pg (12/23/24 20:06:00) MCHC: 32.5 G/dL (12/23/24 20:06:00) RDW: 15.1 % (12/23/24 20:06:00) Platelet: 223 10^3/mcL (12/23/24 20:06:00) MPV: 8 fL (12/23/24 20:06:00) Monocyte Distribution Width: 21.1 High (12/23/24 20:06:00) Neutrophil %: 70.9 % (12/23/24 20:06:00) Lymphocyte %: 13.9 % Low (12/23/24:06:) Monocyte %: 12.5 % (12/23/24 20:06:00) Eosinophil %: 1.9 % (12/23/24 20:06:00) Basophil %: 0.8 % (12/23/24 20:06:00) Neutrophil, Absolute: 6 10^3/mcL (12/23/24 20:06:00) Lymphocyte, Absolute: 1.2 10^3/mcL (12/23/24 20:06:00) Monocyte, Absolute: 1.1 10^3/mcL (12/23/24 20:06:00) Eosinophil, Absolute: 0.2 10^3/mcL (12/23/24 20:06:00) Basophil, Absolute: 0.1 10^3/mcL (12/23/24 20:06:00) Lactic Acid Lvl: 1 mmol/L (12/23/24 20:06:00) No qualifying data available. Assessment and plan: Patient presents on December 23, 2024 with concern for right ankle infection. Acute right ankle infection. Patient does require two midnight hospital stay due to having an infection of his right ankle. Patient did have an ankle fracture status post external fixator placement on October 17, 2024. Recent admission for bacteremia and completed a course of antibiotics. Patient continues to have the external fixator in place and now presenting with worsening swelling and erythema concerning for infection. Blood cultures in process. Wound culture in process. Will continue the patient on broad-spectrum antibiotics with vancomycin and Zosyn. NPO after midnight for procedure. Will consult orthopedic surgery. Patient cannot be treated outpatient due to high risk for sepsis and recurrent bacteremia. Patient does have risk factors for surgery including COPD, morbid obesity and atrial fibrillation. Patient is medically optimized to proceed with surgery if needed. Hypertension. Continue home medications Morbid obesity Diabetes mellitus type II. Continue home medications Hyperlipidemia. Continue statin Chronic paroxysmal atrial fibrillation. Continue home medications other than Xarelto which will be on hold in case of surgery. Resume Xarelto as soon as we can from a surgical standpoint. Gerd. Continue Protonix Anxiety/depression. Continue home medications Chronic COPD not in exacerbation Prophylaxis SCD in case of procedure Code status full code Digitally Signed by SONNY MAX MD on 12/23/2024 09:52 PM [id number]* Exam Date Time Procedure Performing Provider Status 12/23/24 9:45 PM XR Ankle Minimum 3 Views Right MICK LEGGETT MD; Auth (Verified) [id number] ORIGINAL EXAMINATION: THREE XRAY VIEWS OF THE RIGHT ANKLE COMPARISON: Right ankle radiograph 11/25/2024 HISTORY: ORDERING SYSTEM PROVIDED HISTORY: Reason for Exam: pain, prior fracture, concern for infection around fixation hardware FINDINGS: External fixation of the tibia and calcaneus. Small area of bony lucency within the calcaneus. Similar appearance of mildly displaced spiral fracture of the distal fibula with minimal healing changes. Well corticated ossific densities inferior to the lateral and medial malleolus may represent sequela of prior trauma. No additional acute fracture or dislocation is identified. Scattered degenerative changes. No large joint effusion. Soft tissue swelling surrounding the ankle. IMPRESSION: External fixation hardware is similarly positioned. Small area of bony lucency surrounding the calcaneal hardware, which was not definitively identified on prior, and can be seen with developing perihardware infection. Stable appearance of mildly displaced distal fibular spiral fracture with minimal healing changes. Soft tissue swelling surrounding the ankle. I have personally reviewed the images of this examination and agree with the resident's findings and interpretation. Interpreted by: Mick Leggett MD Preliminary Report By: Guerda Louie Electronically signed By Mick Leggett MD Dictated Date: 12/23/2024 9:53:44 PM Prelim Date: 12/23/2024 9:59:16 PM Sign Date: 12/23/2024 10:04:30 PM Ordering Provider: [facility]07-28-2025 Note* Exam Date Time Procedure Performing Provider Status 12/23/24 9:44 PM XR Ankle Minimum 3 Views Left TRACE FIERRO MD; Auth (Verified) [id number] ORIGINAL EXAMINATION: THREE XRAY VIEWS OF THE LEFT ANKLE COMPARISON: Left ankle radiograph 11/25/2024 HISTORY: ORDERING SYSTEM PROVIDED HISTORY: Reason for Exam: pain, prior fracture FINDINGS: Distal fibular/lateral malleolar mildly despite placed spiral fracture is not significantly changed in alignment. Periosteal reaction and mild bony remodeling is identified. Well corticated ossific densities inferior to the medial malleolus may represent sequela of prior trauma. Degenerative changes. Soft tissue swelling. No radiopaque foreign body. IMPRESSION: Similar alignment of distal fibular/lateral malleolar fracture with surrounding reparative changes. I have personally reviewed the images of this examination and agree with the resident's findings and interpretation. Interpreted by: Trace Fierro Preliminary Report By: Guerda Louie Electronically signed By Trace Fierro Dictated Date: 12/23/2024 9:50:21 PM Prelim Date: 12/23/2024 9:53:23 PM Sign Date: 12/23/2024 9:57:26 PM [facility] Note. MICRO - Microbiology PROCEDURE: Blood Culture (bacterial) [*1] SOURCE: Blood BODY SITE: COLLECTED DATE/TIME: 12/23/2024 20:08 EDT RECEIVED DATE/TIME: 12/23/2024 20:16 EDT START DATE/TIME: 12/23/2024 20:16 EDT FREE TEXT SOURCE: PRELIMINARY REPORTS Preliminary Report [] Verified Date/Time/Personnel: 12/23/2024 20:59 EDT Culture has been received in lab and is no growth to date. Routine cultures are held for 5 days. Performing Locations *1: This test was performed at: [facility], [address] [place] [address], [facility] , [facility]07-28-2025 Note. MICRO - Microbiology PROCEDURE: Blood Culture (bacterial) [*1] SOURCE: Blood BODY SITE: COLLECTED DATE/TIME: 12/23/2024 20:06 EDT RECEIVED DATE/TIME: 12/23/2024 20:16 EDT START DATE/TIME: 12/23/2024 20:16 EDT FREE TEXT SOURCE: PRELIMINARY REPORTS Preliminary Report [] Verified Date/Time/Personnel: 12/23/2024 20:59 EDT Culture has been received in lab and is no growth to date. Routine cultures are held for 5 days. Performing Locations *1: This test was performed at: [facility], [address] [place] [address], [id number] , [facility] [id number] Orthopaedic surgery Consult note Date of Service 12/23/24 Reason for Consultation Right ankle surgical site infection Referring Physician Emergency department History of Present Illness Patient is a 54-year-old male presented to [facility] due to purulence coming from his external fixator. Of note, on 10-17-2024 he was treated with close reduction and external fixation with ankle spanning external fixator by Dr. Quintana at [facility]. Patient reports he did attend his 2-week follow- up however has not followed up since. He reports he was post to follow-up last week for removal of Ex-Fix and casting. He did not follow-up due to heart issues. He presents today due to purulence coming from the Ex-Fix. He reports no new trauma. He reports he has not been walking on his ankle. He reports no pain coming the ankle. He reports no paresthesias in the right ankle. He otherwise reports he feels well. Does not feel overly sick. Does not take any thinners. Of note, he was also treated in a closed fashion on the left ankle in a walking boot. This ankle never had any surgery. Review of Systems Pertinent positives and negative were listed above. All other systems reviewed were negative. Physical Exam Vitals and Measurements HR: 75 RR: 20 BP: 132/83 SpO2: 93% No qualifying data available. General: NAD, A&Ox3 HEENT: normocephalic, atraumatic, EOMI intact CV: pulses regular throughout, brisk cap refill throughout, Pulm: normal work of breathing, equal chest rise bilaterally, no intercostal retractions or conversational dyspnea GI: abdomen is soft, nontender, nondistended, no rigidity or guarding Psych: calm and cooperative Right lower extremity -External fixator about his ankle appears translated laterally. There is purulence coming from the pin sites about the calcaneal pin. There is also cellulitis about the entire ankle and foot, most notably about the calcaneal pain as well as the tibial pain. There is no purulence around the tibial pins. Sensation intact to light touch about the entire foot. -Skin pink and well perfused -Sensation intact to light touch L3-S1 -Gross motor function intact to dorsi/plantarflexion of ankle and toes -DP, TP pulses palpable -Compartments are soft and compressible -No calf tenderness Lab Results No 36 Hour Lab Data Imaging Results and Diagnostics X-rays of bilateral ankles are pending at this time Assessment/Plan - 54-year-old male presents after right ankle surgical site infection following external fixator inMay. Patient is NV intact. -I explained to the patient the need for surgical intervention to prevent major morbidity mortalitywith nonoperative treatment. Patient voiced understanding and was agreeable to proceed. -Will obtain informed consent and plan for right ankle removal of external fixator with possible open reduction internal fixation with Dr. Donovan tomorrow. -Hold any chemical DVT prophylaxis at this time - will order SCDs -Pain control -Per primary -Bedrest, NWB right lower extremity -N.p.o. at midnight - Ancef on-call to the OR -We will order type and screen preoperatively. Patient's current hemoglobin pending, platelets pending - Okay to initiate antibiotics -Awaiting medical optimization -Plan discussed with Dr. Donovan Problem List/Past Medical History Ongoing Asthma exacerbation Atopic dermatitis Atypical chest pain Bacteremia Bronchitis Cardiomyopathy Chewing tobacco nicotine dependence CHF [...] Cardioversion: 12/23/22 Echocardiogram: 11/11/22 Elbow Medications Inpatient Kefzol, 2 gram(s)= 20 mL, IV Push (INT), PREOP pharm Home albuterol 2.5 mg/3 mL (0.083%) inhalation [...] solution, 1.5 mg, Subcutaneous, qWeek, 3 refills Vistaril 25 mg oral capsule, 25 mg= 1 cap(s), Oral, QID, PRN, 3 refills Xarelto 20 mg oral tablet, 20 mg= 1 tab(s), Oral, qHS, 11 refills Allergies Contrast dye Statins myalgia Social History Alcohol Use: Past., [...] 0 unknown unit (08/14/20) Digitally Signed by FARZAD GIL DO on 12/23/2024 07:38 PM [id number] Evaluation + Plan noteExtracted from: Title:Clinical Document Author:SONNY MAX MD Date:12/23/24 [facility] Medicine Hospitalist History and Physical Date of Admission: patient is being admitted on December 23, 2024 Chief complaint: right ankle infection History of present illness: History is taken from talking with emergency room physician Dr. her as well as talking with the patient. Patient has a past medical history of morbid obesity, hypertension, diabetes mellitus type II, hyperlipidemia, atrial fibrillation on Xarelto, Gerd, bacteremia, anxiety/depression, COPD, ankle fracture status post external fixator. Readmission documentation. This was discussed with emergency room physician Dr. georgi Leblanc. Patient was last discharged from here on November 28, 2024 and during that admission the patient was here for atrial fibrillation with rapid ventricular response as well as bacteremia. Patient was evaluated by infectious disease. They did do a NELDA that was negative for endocarditis. Patient was discharged on cephalexin. Patient was sent to the emergency room after he noted to have worsening swelling and redness and pain of his right ankle. The patient was supposed to follow up with orthopedic surgery for removal of the external fixator however the patient did not follow up due to having heart issues. Patient denies fevers, chills or night sweats. Since presenting to the emergency room the patient has been afebrile, hemodynamically stable, 93% room air. The following labs and imaging were personally reviewed CBC within normal limits lactic acid 1.0 In emergency room they ordered blood cultures and the patient was given morphine, Zofran, Zosyn, vancomycin. Past medical history: Asthma exacerbation Atopic dermatitis Atrial fibrillation Atypical chest pain Bacteremia Bronchitis CHF with cardiomyopathy COPD exacerbation Cardiomyopathy Chewing tobacco nicotine dependence Cough Dental abscess Depression Dyspnea GERD (gastroesophageal reflux disease) Generalized anxiety disorder Gout HTN (hypertension) Hypertension associated with type [...] 7.0% Type 2 diabetes mellitus with hyperlipidemia Excision: 03/25/24 Echocardiogram: 01/31/24 Cardioversion: 12/23/22 Echocardiogram: 11/11/22 Elbow Family history: Mother: Heart disease Father: Cancer; Stroke Grandparent: Heart disease Social history: Denies smoking cigarettes or alcohol consumption Medications: Home Medications (31) Active acetaminophen 325 mg oral tablet 650 mg = 2 tab(s), PRN, Oral, q4h acetaminophen 325 mg oral tablet 650 mg = 2 tab(s), PRN, Oral, q4h acetaminophen 650 mg rectal suppository 650 mg = 1 supp, PRN, Rectal, q4h acetaminophen 650 mg rectal suppository 650 mg = 1 supp, PRN, Rectal, q4h Advair Diskus 100 mcg-50 mcg/inh inhalation powder 1 inh, Inhalation, BID Al hydroxide/Mg hydroxide/simethicone 200 mg-200 mg-20 mg/5 mL oral suspension 30 mL, PRN, Oral, q4h albuterol 2.5 mg/3 mL (0.083%) inhalation solution 2.5 mg = 3 mL, Inhalation, q6h allopurinol 100 mg oral tablet 100 mg = 1 tab(s), Oral, qDay amLODIPine 5 mg oral tablet 5 mg = 1 tab(s), Oral, qAM bisacodyl 10 mg rectal suppository 10 mg = 1 supp, PRN, Rectal, qDay cetirizine 10 mg oral tablet 10 mg = 1 tab(s), Oral, Daily DULoxetine 20 mg oral delayed release capsule 20 mg = 1 cap(s), Oral, qAM Fleet Enema 19 g-7 g/118 mL rectal enema 1 EA, PRN, Rectal, qDay GlucaGen 1 mg injection 1 mg, PRN, Intramuscular, Once Gluco-To-Go 40% oral gel 1 dose, PRN, Oral, Once guaiFENesin 10 mL, PRN, Oral, q4h hydroCHLOROthiazide 50 mg oral tablet 50 mg = 1 tab(s), Oral, qAM Milk of Magnesia 8% oral suspension 2.4 gram(s) = 30 mL, PRN, Oral, qHS Nexletol 180 mg oral tablet 180 mg = 1 tab(s), Oral, qDay omeprazole 40 mg oral delayed release capsule 40 mg = 1 cap(s), Oral, qAM Potassium Chloride (Eqv-K-Tab) 20 mEq oral tablet, extended release 20 mEq = 1 tab(s), Oral, qDay pravastatin 40 mg oral tablet 40 mg = 1 tab(s), Oral, qHS spironolactone 25 mg oral tablet 25 mg = 1 tab(s), Oral, qDay Tikosyn 250 mcg oral capsule 250 mcg = 1 cap(s), Oral, BID tiZANidine 2 mg oral tablet 2 mg = 1 tab(s), PRN, Oral, q8h Toprol-XL 100 mg oral tablet, extended release 100 mg = 1 tab(s), Oral, BID traMADol 50 mg oral tablet 50 mg = 1 tab(s), PRN, Oral, q8h traZODone 100 mg oral tablet 100 mg = 1 tab(s), Oral, qHS Trulicity Pen 1.5 mg/0.5 mL subcutaneous solution 1.5 mg, Subcutaneous, qWeek Vistaril 25 mg oral capsule 25 mg = 1 cap(s), PRN, Oral, QID Xarelto 20 mg oral tablet 20 mg = 1 tab(s), Oral, qHS Allergies: Contrast dye Statins (myalgia) Review of systems: See HPI for pertinent positives and negatives. All other review of systems have been reviewed and they are negative. Vitals Signs(Last 24 hrs)__Last Charted Minimum Maximum JPH706(DEC 23 17:42)132(DEC 23 17:42)132(DEC 23 17:42) DBP83(DEC 23 17:42)83(DEC 23 17:42)83(DEC 23 17:42) Physical examination: HEENT: No Pallor, No Icterus Cardiac: RRR, No murmur Lungs: CTA, good air entry Abdomen: Soft Non tender Musculoskeletal: right ankle swelling and tenderness and erythema concerning for infection Extremities: No edema, good pulses Neurological: Alert, no deficits Skin: No rash, no nodules Labs: WBC: 8.5 10^3/mcL (12/23/24 20:06:00) RBC: 5.59 10^6/mcL (12/23/24 20:06:00) Hgb: 15.5 G/dL (12/23/24 20:06:00) Hct: 47.5 % (12/23/24 20:06:00) MCV: 85 fL (12/23/24 20:06:00) MCH: 27.7 pg (12/23/24 20:06:00) MCHC: 32.5 G/dL (12/23/24 20:06:00) RDW: 15.1 % (12/23/24 20:06:00) Platelet: 223 10^3/mcL (12/23/24:06:00) MPV: 8 fL (12/23/24 20:06:00) Monocyte Distribution Width: 21.1 High (12/23/24 20:06:00) Neutrophil %: 70.9 % (12/23/24 20:06:00) Lymphocyte %: 13.9 % Low (12/23/24 20:06:00) Monocyte %: 12.5 % (12/23/24 20:06:00) Eosinophil %: 1.9 % (12/23/24 20:06:00) Basophil %: 0.8 % (12/23/24 20:06:00) Neutrophil, Absolute: 6 10^3/mcL (12/23/24 20:06:00) Lymphocyte, Absolute: 1.2 10^3/mcL (12/23/24 20:06:00) Monocyte, Absolute: 1.1 10^3/mcL (12/23/24 20:06:00) Eosinophil, Absolute: 0.2 10^3/mcL (12/23/24 20:06:00) Basophil, Absolute: 0.1 10^3/mcL (12/23/24 20:06:00) Lactic Acid Lvl: 1 mmol/L (12/23/24 20:06:00) No qualifying data available. Assessment and plan: Patient presents on December 23, 2024 with concern for right ankle infection. Acute right ankle infection. Patient does require two midnight hospital stay due to having an infection of his right ankle. Patient did have an ankle fracture status post external fixator placement on October 17, 2024. Recent admission for bacteremia and completed a course of antibiotics. Patient continues to have the external fixator in place and now presenting with worsening swelling and erythema concerning for infection. Blood cultures in process. Wound culture in process. Will continue the patient on broad-spectrum antibiotics with vancomycin and Zosyn. NPO after midnight for procedure. Will consult orthopedic surgery. Patient cannot be treated outpatient due to high risk for sepsis and recurrent bacteremia. Patient does have risk factors for surgery including COPD, morbid obesity and atrial fibrillation. Patient is medically optimized to proceed with surgery if needed. Hypertension. Continue home medications Morbid obesity Diabetes mellitus type II. Continue home medications Hyperlipidemia. Continue statin Chronic paroxysmal atrial fibrillation. Continue home medications other than Xarelto which will be on hold in case of surgery. Resume Xarelto as soon as we can from a surgical standpoint. Gerd. Continue Protonix Anxiety/depression. Continue home medications Chronic COPD not in exacerbation Prophylaxis SCD in case of procedure Code status full code Diagnostic Tests Pending * Culture Wound Aerobic with Gram Stain 12/23/24 Future Scheduled Tests Laboratory* Basic Metabolic Panel 02/07/24 * Basic Metabolic Panel 12/10/24 * Basic Metabolic Panel 02/19/24 * Magnesium Level 02/07/24 * Complete Blood Count 08/27/24 * Complete Metabolic Panel 08/27/24 * N-Terminal proBNP 08/27/24 [facility] 07-26-2025 Discharge summary [facility] Medical Records Department [address] [place] [address] Transfer to [facility] Care MR#: [id number] Acct: [id number] Name: CARLOSA LBERTO KELLEY Jr. Rep #:[id number] : 1970 54 From: Farzad mejia MD PCP: Dr. Jhonatan Garcia, DO Status:ADM BRNENA Certification of patient admission REQUIRED AT TIME OF ADMISSION. I CERTIFY THAT POST-HOSPITAL ECF SERVICES ARE REQUIRED TO BE GIVEN ON AN IN-PATIENT BASIS BECAUSE OF THE ABOVE NAMED PATIENT'S NEED FOR HALF-WAY CARE ON A CONTINUING BASIS FOR THE CONDITION(S) FOR WHICH HE/SHE WAS RECEIVING IN-PATIENT HOSPITAL SERVICES PRIOR TO HIS/HER TRANSFER TO [facility]. 12/21/24 0845 Diet Diet Order/Speech Therapy: INPATIENT Hospital Diet / Speech Therapy Order(s) 12/20/24 22:28 Diet: Regular - General Food consistency:: Regular Liquid Consistency:: Regular/Thin Routine Orders/Code Status Routine Lab Work: CBC and BMP Code Status: Full Code DC O2, CPAP, BIPAP needs Home O2 Discharge instructions: No Wound(s) rt hand: Wound Type: blisters from IV infiltration with contrast Therapies Physical Therapy: Eval and Treat Occupational Therapy: Eval and Treat Problem/Diagnosis (1) Extravasation of intravenous contrast medium: Status: Acute Code(s): T80.818A - Extravasation of other vesicant agent, initial encounter (2) Swelling of right hand: Status: Acute Code(s): M79.89 - Other specified soft tissue disorders Allergies/Procedures Done in Hospital Allergies Eglbokg-RMY-[id number] Reductase Inhibitor Allergy (Mild, Verified 12/20/24 13:07) Hives Procedures: None Type of Care/Length of Stay Estimated LOS: Convalescent Care Less Than 30 days Type of Care Needed: Skilled Rehab Potential: Good Prognosis: Good Additional Orders/Day of Discharge Day of Discharge: 12/21/24 Discharge Plan Admission Admit Date/Time: 12/20/24 17:52 Attending Provider: Farzad Camilo Primary Care Provider: Jhonatan Garcia Consulting Providers: Austin Estrada; Yaz Dee Instructions Additional Instructions / Restrictions: Plastic surgery discharge instructions Continue elevation of the right upper extremity especially at night and when lying in bed for the next several days for the swelling to decrease Recommend bacitracin or Neosporin and Band-Aids for any skin excoriations on thedorsum of the righthand secondary to the blistering. Follow-up with me later this week in clinic Discharge Orders/Prescriptions Prescriptions: Continued hydrochlorothiazide 50 mg Tablet 50 mg PO DAILY amlodipine 5 mg Tablet 5 mg PO DAILY allopurinol 100 mg Tablet 100 mg PO DAILY omeprazole 40 mg Capsule,Delayed Release(Dr/Ec) 40 mg PO DAILY Xarelto 20 mg tablet 20 mg PO DAILY Qty: 30 0RF Rx Instructions: must administer with evening meal tramadol 50 mg tablet 50 mg PO Q8H PRN (Reason: pain) trazodone 100 mg tablet 100 mg PO QHS tizanidine 2 mg tablet 2 mg PO Q8H spironolactone 25 mg tablet 25 mg PO DAILY albuterol sulfate 2.5 mg /3 mL (0.083 %) solution for nebulization 2.5 mg inhalation Q6H Patient Comments: [NO ORIGINAL SIG] Rx Instructions: via nebulizer pravastatin 40 mg tablet 40 mg PO DAILY metoprolol succinate 100 mg tablet extended release 24 hr 100 mg PO BID dofetilide 250 mcg capsule 250 mcg PO BID potassium chloride 20 mEq tablet,ER particles/crystals 20 meq PO DAILY hydroxyzine pamoate 25 mg capsule 25 mg PO Q6H PRN (Reason: anxiety) Patient Comments: TAKE X14 DAYS END DATE IS 12/27/24 duloxetine 20 mg capsule,delayed release(DR/EC) 20 mg PO DAILY Nexletol 180 mg tablet 180 mg PO DAILY cetirizine 10 mg tablet 10 mg PO DAILY fluticasone propion-salmeterol [Advair Diskus] 100-50 mcg/dose blister with device 1 inh inhalation BID fluticasone propion-salmeterol [Advair Diskus] 100-50 mcg/dose blister with device 2 inh inhalation BID Trulicity 1.5 mg/0.5 mL pen injector 1.5 mg subcut .WEEKLY Patient Comments: patient takes on acetaminophen 325 mg capsule 650 mg PO Q4H PRN (Reason: fever or pain) Referrals / Follow Up: Jhonatan Garcia DO [Primary Care Provider] - Disposition Disposition (needs filled in before D/C Order can be placed): Detention Facility 12/21/24 0845 Cosigner Signature (if applicable): CC: Dr. Yaz Dee MD; Dr. Austin Estrada MD; Dr. Jhonatan Garcia DO ~ [facility]07-26-2025 Discharge summary [facility] Medical Records Department [address] [place] [address] Discharge Summary 12/21/24 1134 MR#: [id number] Acct: [id number] Name: CARLOS ALBERTO KELLEY Jr. Rep #:[id number] : 1970 54 From: Farzad mejia MD PCP: Dr. Jhonatan Garcia DO Status:ADM BRENNA [id number] Providers Date of Admission: 12/20/24 Primary Care Physician: Dr. Jhonatan Garcia DO Consultations 12/20/24 22:28 Consult: Plastic Surgery Routine Consulting Provider: Austin Estrada Reason for Consult: Right hand pain and swelling EMERGENT Consult: No MD Notified: Yes Date Notified: 12/20/24 Time Notified: 18:28 Method of Notification: ED Physician Initiated Reason For Visit: RIGHT ARM SWELLING AND ERYTHEMA AFTER CONTRAST Diagnosis Discharge Diagnosis (1) Extravasation of intravenous contrast medium: Status: Acute Code(s): T80.818A - Extravasation of other vesicant agent, initial encounter (2) Swelling of right hand: Status: Acute Code(s): M79.89 - Other specified soft tissue disorders Medications at Discharge Home Medications allopurinol 100 mg tablet 100 mg PO DAILY 10/23/22 amlodipine 5 mg tablet 5 mg PO DAILY 10/23/22 hydrochlorothiazide 50 mg tablet 50 mg PO DAILY 10/23/22 omeprazole 40 mg capsule,delayed release 40 mg PO DAILY 10/23/22 rivaroxaban 20 mg tablet (Xarelto) 20 mg PO DAILY #30 tabs 10/23/22 albuterol sulfate 2.5 mg/3 mL (0.083 %) solution for nebulization 2.5 mg inhalation Q6H 12/19/24 bempedoic acid 180 mg tablet (Nexletol) 180 mg PO DAILY 12/19/24 dofetilide 250 mcg capsule 250 mcg PO BID 12/19/24 duloxetine 20 mg capsule,delayed release 20 mg PO DAILY 12/19/24 hydroxyzine pamoate 25 mg capsule 25 mg PO Q6H PRN anxiety 12/19/24 metoprolol succinate 100 mg tablet,extended release 24 hr 100 mg PO BID 12/19/24 potassium chloride 20 mEq tablet,extended release(part/cryst) 20 meq PO DAILY 12/19/24 pravastatin 40 mg tablet 40 mg PO DAILY 12/19/24 spironolactone 25 mg tablet 25 mg PO DAILY 12/19/24 tizanidine 2 mg tablet 2 mg PO Q8H 12/19/24 tramadol 50 mg tablet 50 mg PO Q8H PRN pain 12/19/24 trazodone 100 mg tablet 100 mg PO QHS 12/19/24 acetaminophen 325 mg capsule 650 mg PO Q4H PRN fever or pain 12/20/24 cetirizine 10 mg tablet 10 mg PO DAILY 12/20/24 dulaglutide 1.5 mg/0.5 mL subcutaneous pen injector (Trulicity) 1.5 mg subcut .WEEKLY 12/20/24 fluticasone 100 mcg-salmeterol 50 mcg/dose blistr powdr for inhalation (Advair Diskus) 1 inh inhalation BID 12/20/24 fluticasone 100 mcg-salmeterol 50 mcg/dose blistr powdr for inhalation (Advair Diskus) 2 inh inhalation BID 12/20/24 Hospital Course Operations None Procedures None Summary of Care Provided Minutes Spent on Discharge: 31 Hospital Course: Per HPI: CARLOS ALBERTO KELLEY, is [id number] male history of hypertension, gout, cardiomyopathy, GERD, diabetes, depression and anxiety, KOFFI who presented [facility] ED 12/20/2024 for right hand pain, swelling, itching that started yesterday when he was in the ED for a CT scan of the chest withIV contrast. The contrast infiltrated out of the IV so he had an IV placed in his left hand and then got the IV contrasted study. No symptoms in left hand at all. Re-presented today due to increased swelling and redness all the way up right upper arm. In the ED temp 98.6, heart rate 72 and blood pressure 145/88, respiratory 18 pulse ox 99% on room air. CBC and BMP fairly benign, hand x-ray with severe soft tissue swelling. Plastic surgery was contacted in the ED and evaluated, recommended admission for observation with aggressive elevation. Hospitalist contacted for admission. Patient evaluated at bedside. Patient reports history as above with the swelling developing since yesterday, patient has difficulty moving hand due to the swelling more so than the pain. Denies fever, reports his right foot/ankle gets little bit irritated due to the fixatorthat is due to come off January 01 but no other new or acute complaints Hospital Course: 1. Right hand swelling after contrast extravasation and IV infiltration?54-year-old male with a recent ankle fracture who was at a nursing facility presented to the hospital for a CT scan and at thattime the IV infiltrated and there was contrast extravasation. He developed blistering and swelling of his right hand so presented to the hospital. Plastic surgery was consulted in the ER and recommended overnight observation. This morning per plastic surgery the hand looks much better so he recommends bacitracin ointment. No leukocytosis orfever. Plan will be to return to SNF today and he was stable for discharge fromplastic surgery's perspective. 2. Recent ankle fracture, gout, essential hypertension, depression, anxiety, paroxysmal A-fib, chronic heart failure unknown type are all chronic medical conditions which complicate his care. His home medications were continued whereappropriate Physical Exam Narrative General: Alert, Oriented x3, Cooperative, No apparent distress HEENT: Atraumatic, PERRLA, EOMI, Normocephalic Oral: Moist Mucosa Neck: Supple, No JVD Lungs: Diminished, Normal air movement, No rhonchi, No wheeze, No rales Cardiovascular: Regular rate, Regular Rhythm, Normal S1, Normal S2, No murmurs Abdomen: Soft, Non Tender, Non-Distended, No Hepato-splenomegaly Extremities: No edema, Capillary Refill Less than 3 Seconds, right foot Ex-Fix in his left foot is in a boot Skin: Blisters on the dorsal aspect of his right hand and wrist Musculoskeletal: No Tenderness to Palpation of Joints or Extremities Neurological: No focal neurological deficits, Motor Exam 5/5 strength throughout, Sensory exam intact to light touch and pain Psych/Mental Status: Normal Affect, Appropriate Weight / BMI Weight Weight: 309 lb 15.519 oz Body Mass Index (BMI) 45.8 ABG / Lab / Microbiology Data 12/21/24 03:42 12/21/24 03:42 Laboratory: Laboratory Results - last 24 hr 12/20/24 15:04: WBC 8.4, RBC 5.31, Hgb 14.3, Hct 46.2, MCV 87.0, MCH 26.9 L, MCHC 31.0 L, RDW Std Deviation 44.4 H, RDW Coeff of Tee 13.9, Plt Count 198, MPV 9.8, Immature Gran % (Auto) 0.400, Neut %(Auto) 76.3 H, Lymph % (Auto) 10.6 L, Glasscock % (Auto) 10.6 H, Eos % (Auto) 1.6, Baso % (Auto) 0.5, Absolute Neuts (auto)6.4, Absolute Lymphs (auto) 0.89, Nucleated RBC % 0, Sodium 134, Potassium 4.2, Chloride 98, Carbon Dioxide 26.7, Anion Gap 10, BUN 12, Creatinine 0.94, Estim Creat Clear Calc 128.93, Est GFR (MDRD) Non-Af 97, BUN/Creatinine Ratio 12.3, Glucose 121 H, Calcium 9.2 12/20/24 23:19: POC Glucose 222 H 12/21/24 03:42: WBC 7.4, RBC 5.23, Hgb 14.2, Hct 45.3, MCV 86.6, MCH 27.2, MCHC 31.3 L, RDW Std Deviation 43.9, RDW Coeff of Tee 13.8, Plt Count 191, MPV 9.8, Immature Gran % (Auto) 0.300, Neut % (Auto) 68.8, Lymph % (Auto) 15.1 L, Glasscock % (Auto) 13.4 H, Eos % (Auto) 1.9, Baso % (Auto) 0.5, AbsoluteNeuts (auto) 5.1, Absolute Lymphs (auto) 1.12, Nucleated RBC % 0, Sodium 140, Potassium 4.5, Chloride 101, Carbon Dioxide 29.1, Anion Gap 10, BUN 12, Creatinine 0.86, Estim Creat Clear Calc 138.62, Est GFR (MDRD) Non-Af 103, BUN/Creatinine Ratio 13.8, Glucose 126 H, Calcium 9.2 12/21/24 07:04: POC Glucose 99 12/21/24 11:03: POC Glucose 171 H Radiography Diagnostic Testing: Radiology Impression Hand X-Ray 12/20/24 14:52 IMPRESSION: Severe soft tissue swelling. No significant bony abnormality Reading Location: [id number] D/C Instructions DC O2, CPAP, BIPAP Needs Home O2 Discharge instructions: No Meaningful Use Info Meaningful Use Meaningful Use Diagnoses (Choose all that apply): None applicable Discharge Plan Admission Admit Date/Time: 12/20/24 17:52 Attending Provider: Farzad Camilo Primary Care Provider: Jhonatan Garcia Consulting Providers: Austin Estrada; Yaz Dee Instructions Additional Instructions / Restrictions: Plastic surgery discharge instructions Continue elevation of the right upper extremity especially at night and when lying in bed for the next several days for the swelling to decrease Recommend bacitracin or Neosporin and Band-Aids for any skin excoriations on thedorsum of the righthand secondary to the blistering. Follow-up with me later this week in clinic Discharge Orders/Prescriptions Prescriptions: Continued hydrochlorothiazide 50 mg Tablet 50 mg PO DAILY amlodipine 5 mg Tablet 5 mg PO DAILY allopurinol 100 mg Tablet 100 mg PO DAILY omeprazole 40 mg Capsule,Delayed Release(Dr/Ec) 40 mg PO DAILY Xarelto 20 mg tablet 20 mg PO DAILY Qty: 30 0RF Rx Instructions: must administer with evening meal tramadol 50 mg tablet 50 mg PO Q8H PRN (Reason: pain) trazodone 100 mg tablet 100 mg PO QHS tizanidine 2 mg tablet 2 mg PO Q8H spironolactone 25 mg tablet 25 mg PO DAILY albuterol sulfate 2.5 mg /3 mL (0.083 %) solution for nebulization 2.5 mg inhalation Q6H Patient Comments: [NO ORIGINAL SIG] Rx Instructions: via nebulizer pravastatin 40 mg tablet 40 mg PO DAILY metoprolol succinate 100 mg tablet extended release 24 hr 100 mg PO BID dofetilide 250 mcg capsule 250 mcg PO BID potassium chloride 20 mEq tablet,ER particles/crystals 20 meq PO DAILY hydroxyzine pamoate 25 mg capsule 25 mg PO Q6H PRN (Reason: anxiety) Patient Comments: TAKE X14 DAYS END DATE IS 12/27/24 duloxetine 20 mg capsule,delayed release(DR/EC) 20 mg PO DAILY Nexletol 180 mg tablet 180 mg PO DAILY cetirizine 10 mg tablet 10 mg PO DAILY fluticasone propion-salmeterol [Advair Diskus] 100-50 mcg/dose blister with device 1 inh inhalation BID fluticasone propion-salmeterol [Advair Diskus] 100-50 mcg/dose blister with device 2 inh inhalation BID Trulicity 1.5 mg/0.5 mL pen injector 1.5 mg subcut .WEEKLY Patient Comments: patient takes on acetaminophen 325 mg capsule 650 mg PO Q4H PRN (Reason: fever or pain) Referrals / Follow Up: Jhonatan Garcia DO [Primary Care Provider] - Disposition Disposition (needs filled in before D/C Order can be placed): Detention Facility Charges/Coding Visit Charges Inpatient E&M: 27813 Disch Hosp >30min 12/21/24 1138 Cosigner Signature (if applicable): CC: Dr. Farzad Camilo MD; Dr. Jhonatan Garcia DO~ Signed [facility]07-26-2025 [facility] Medical Records Department [address] [place] [address] Discharge Summary 12/21/24 1134 MR#: [id number] Acct: [id number] Name: WARRENCARLOS ALBERTO Jr. Rep #: [id number] : 1970 54 From: Farzad Camilo MD PCP: Dr. Jhonatan Garcia DO Status:ADM BRENNA Location: [place] [address] Providers Date of Admission: 12/20/24 Primary Care Physician: Dr. Jhonatan Garcia DO Consultations 12/20/24 22:28 Consult: Plastic Surgery Routine Consulting Provider: Austin Estrada Reason for Consult: Right hand pain and swelling EMERGENT Consult: No MD Notified: Yes Date Notified: 12/20/24 Time Notified: 18:28 Method of Notification: ED Physician Initiated Reason For Visit: RIGHT ARM SWELLING AND ERYTHEMA AFTER CONTRAST Diagnosis Discharge Diagnosis (1) Extravasation of intravenous contrast medium: Status: Acute Code(s): T80.818A - Extravasation of other vesicant agent, initial encounter (2) Swelling of right hand: Status: Acute Code(s): M79.89 - Other specified soft tissue disorders Medications at Discharge Home Medications allopurinol 100 mg tablet 100 mg PO DAILY 10/23/22 amlodipine 5 mg tablet 5 mg PO DAILY 10/23/22 hydrochlorothiazide 50 mg tablet 50 mg PO DAILY 10/23/22 omeprazole 40 mg capsule,delayed release 40 mg PO DAILY 10/23/22 rivaroxaban 20 mg tablet (Xarelto) 20 mg PO DAILY #30 tabs 10/23/22 albuterol sulfate 2.5 mg/3 mL (0.083 %) solution for nebulization 2.5 mg inhalation Q6H 12/19/24 bempedoic acid 180 mg tablet (Nexletol) 180 mg PO DAILY 12/19/24 dofetilide 250 mcg capsule 250 mcg PO BID 12/19/24 duloxetine 20 mg capsule,delayed release 20 mg PO DAILY 12/19/24 hydroxyzine pamoate 25 mg capsule 25 mg PO Q6H PRN anxiety 12/19/24 metoprolol succinate 100 mg tablet,extended release 24 hr 100 mg PO BID 12/19/24 potassium chloride 20 mEq tablet,extended release(part/cryst) 20 meq PO DAILY 12/19/24 pravastatin 40 mg tablet 40 mg PO DAILY 12/19/24 spironolactone 25 mg tablet 25 mg PO DAILY 12/19/24 tizanidine 2 mg tablet 2 mg PO Q8H 12/19/24 tramadol 50 mg tablet 50 mg PO Q8H PRN pain 12/19/24 trazodone 100 mg tablet 100 mg PO QHS 12/19/24 acetaminophen 325 mg capsule 650 mg PO Q4H PRN fever or pain 12/20/24 cetirizine 10 mg tablet 10 mg PO DAILY 12/20/24 dulaglutide 1.5 mg/0.5 mL subcutaneous pen injector (Trulicity) 1.5 mg subcut .WEEKLY 12/20/24 fluticasone 100 mcg-salmeterol 50 mcg/dose blistr powdr for inhalation (Advair Diskus) 1 inh inhalation BID 12/20/24 fluticasone 100 mcg-salmeterol 50 mcg/dose blistr powdr for inhalation (Advair Diskus) 2 inh inhalation BID 12/20/24 Hospital Course Operations None Procedures None Summary of Care Provided Minutes Spent on Discharge: 31 Hospital Course: Per HPI: CARLOS ALBERTO KELLEY, is [id number] male history of hypertension, gout, cardiomyopathy, GERD, diabetes, depression and anxiety, KOFFI who presented [facility] ED 12/20/2024 for right hand pain, swelling, itching that started yesterday when he was in the ED for a CT scan of the chest with IV contrast. The contrast infiltrated out of the IV so he had an IV placed in his left hand and then got the IV contrasted study. No symptoms in left hand at all. Re- presented today due to increased swelling and redness all the way up right upper arm. In the ED temp 98.6, heart rate 72 and blood pressure 145/88, respiratory 18 pulse ox 99% on room air. CBC and BMP fairly benign, hand x-ray with severe soft tissue swelling. Plastic surgery was contacted in the ED and evaluated, recommended admission for observation with aggressive elevation. Hospitalist contacted for admission. Patient evaluated at bedside. Patient reports history as above with the swelling developing since yesterday, patient has difficulty moving hand due to the swelling more so than the pain. Denies fever, reports his right foot/ankle gets little bit irritated due to the fixator that is due to come off January 01 but no other new or acute complaints Hospital Course: 1. Right hand swelling after contrast extravasation and IV infiltration???54-year-old male with a recent ankle fracture who was at a nursing facility presented to the hospital for a CT scan and at that time the IV infiltrated and there was contrast extravasation. He developed blistering and swelling of his right hand so presented to the hospital. Plastic surgery was consulted in the ER and recommended overnight observation. This morning per plastic surgery the hand looks much better so he recommends bacitracin ointment. No leukocytosis or fever. Plan will be to return to SNF today and he was stable for discharge from plastic surgery's perspective. 2. Recent ankle fracture, gout, essential hypertension, depression, anxiety, paroxysmal A-fib, chronic heart failure unknown type are all chronic medical conditions which complicate his care. His home (more content not included)...[facility]07-26-2025 Progress note Author Austin Estrada [facility] Note Date/Time December 21, 2024 8:23 am [facility] Medical Records Department [address] [place] [address] Progress Note - Surgery 12/21/24 0807 MR#: [id number] Acct: [id number] Name: CARLOS ALBERTO KELLEY Jr. Rep #:[id number] : 1970 54 From: Austin Estrada MD PCP: Dr. Jhonatan Garcia, DO Status:ADM BRENNA Location: [facility] [id number] Subjective Subjective Much improvement in right hand range of motion. Doing quite well this morning. Has been compliant with elevation. He reports no numbness or tingling Objective Data Objective Data Vital Signs: Vital Signs Temp Pulse Resp BP Pulse Ox O2 Del Method 98.3 F 75 16 105/71 93 Room Air 12/21/24 03:55 12/21/24 03:55 12/21/24 03:55 12/21/24 03:55 12/21/24 03:55 12/21/24 03:55 Oxygen Delivery Method Room Air Weight: 309 lb 15.519 oz Body Mass Index (BMI) 45.8 Intake & Output: Intake and Output for Last 24 Hours 12/19/24 12/20/24 12/21/24 23:59 23:59 23:59 Intake Total 900 / 900 Output Total 700 / 700 Balance 200 / 200 Lab / Micro Data 12/21/24 03:42 12/21/24 03:42 Labs: Laboratory Results - last 24 hr 12/20/24 15:04: WBC 8.4, RBC 5.31, Hgb 14.3, Hct 46.2, MCV 87.0, MCH 26.9 L, MCHC 31.0 L, RDW Std Deviation 44.4 H, RDW Coeff of Tee 13.9, Plt Count 198, MPV 9.8, Immature Gran % (Auto) 0.400, Neut % (Auto) 76.3 H, Lymph % (Auto) 10.6 L, Glasscock % (Auto) 10.6 H, Eos % (Auto) 1.6, Baso % (Auto) 0.5, Absolute Neuts (auto)6.4, Absolute Lymphs (auto) 0.89, Nucleated RBC % 0, Sodium 134, Potassium 4.2, Chloride 98, Carbon Dioxide 26.7, Anion Gap 10, BUN 12, Creatinine 0.94, Estim Creat Clear Calc 128.93, Est GFR (MDRD) Non-Af 97, BUN/Creatinine Ratio 12.3, Glucose 121 H, Calcium 9.2 12/20/24 23:19: POC Glucose 222 H 12/21/24 03:42: WBC 7.4, RBC 5.23, Hgb 14.2, Hct 45.3, MCV 86.6, MCH 27.2, MCHC 31.3 L, RDW Std Deviation 43.9, RDW Coeff of Tee 13.8, Plt Count 191, MPV 9.8, Immature Gran % (Auto) 0.300, Neut % (Auto) 68.8, Lymph % (Auto) 15.1 L, Glasscock % (Auto) 13.4 H, Eos % (Auto) 1.9, Baso % (Auto) 0.5, Absolute Neuts (auto) 5.1, Absolute Lymphs (auto) 1.12, Nucleated RBC % 0, Sodium 140, Potassium 4.5, Chloride 101, Carbon Dioxide 29.1, Anion Gap 10, BUN 12, Creatinine 0.86, Estim Creat Clear Calc 138.62, Est GFR (MDRD) Non-Af 103, BUN/Creatinine Ratio 13.8, Glucose 126 H, Calcium 9.2 12/21/24 07:04: POC Glucose 99 Radiography Diagnostic Testing: Radiology Impression Hand X-Ray 12/20/24 14:52 IMPRESSION: Severe soft tissue swelling. No significant bony abnormality Reading Location: [facility] Physical Exam Narrative Right upper Extremity Inspection: Dorsal hand swelling with superficial blistering, but greatly improved since yesterday. No streaking erythema. Palpation: No crepitus. Compartments of the forearm and the hand are all soft. No tenderness to palpation of the hand today. No tenderness to palpation with extension of the fingers. Motor: Able to bend and extend all MP, PIP, and DIP joints. He can now make a fist. Sensory: Intact to light touch on the radial and ulnar borders. Vascular: Finger tips are warm and well perfused with <2 second capillary refill. Assessment & Plan Assessment/Plan (1) Extravasation of intravenous contrast medium: (2) Swelling of right hand: PLAN: Plan Great improvement overnight with rest and elevation I am comfortable with him being discharged back to the rehab facility today withfollow-up next week Patient will need bacitracin and Band-Aids as needed for excoriations from the superficial blistering, but there are no large wounds on the back of his hand today (I will monitor for development of any wounds). I would continue rest andelevation with the arm elevator at the rehab facility. Patient happy with the plan Charges/Coding Visit Charges Inpatient E&M: 62646 Subs Hosp L1 12/21/24822 <Electronically signed by Austin Estrada MD> Cosigner Signature (if applicable): CC: ~ Signed [facility] Work Phone: 1(257) 842-964007-26-2025 Progress note [facility] Medical Records Department [address] [place] [address] Progress Note - Surgery 12/21/24806 MR#: [id number] Acct: [id number] Name: CARLOS ALBERTO KELLEY Lucian Brito. Rep #:[id number] : 1970 54 From: Austin Estrada MD PCP: Dr. Jhonatan Garcia, DO Status:ADM BRENNA Location: [facility] [id number] Subjective Subjective Much improvement in right hand range of motion. Doing quite well this morning. Has been compliant with elevation. He reports no numbness or tingling Objective Data Objective Data Vital Signs: Vital Signs Temp Pulse Resp BP Pulse Ox O2 Del Method 98.3 F 75 16 105/71 93 Room Air 12/21/24 03:55 12/21/24 03:55 12/21/24 03:55 12/21/24 03:55 12/21/24 03:55 12/21/24 03:55 Oxygen Delivery Method Room Air Weight: 309 lb 15.519 oz Body Mass Index (BMI) 45.8 Intake & Output: Intake and Output for Last 24 Hours 12/19/24 12/20/24 12/21/24 23:59 23:59 23:59 Intake Total 900 / 900 Output Total 700 / 700 Balance 200 / 200 Lab / Micro Data 12/21/24 03:42 12/21/24 03:42 Labs: Laboratory Results - last 24 hr 12/20/24 15:04: WBC 8.4, RBC 5.31, Hgb 14.3, Hct 46.2, MCV 87.0, MCH 26.9 L, MCHC 31.0 L, RDW Std Deviation 44.4 H, RDW Coeff of Tee 13.9, Plt Count 198, MPV 9.8, Immature Gran % (Auto) 0.400, Neut %(Auto) 76.3 H, Lymph % (Auto) 10.6 L, Glasscock % (Auto) 10.6 H, Eos % (Auto) 1.6, Baso % (Auto) 0.5, Absolute Neuts (auto)6.4, Absolute Lymphs (auto) 0.89, Nucleated RBC % 0, Sodium 134, Potassium 4.2, Chloride 98, Carbon Dioxide 26.7, Anion Gap 10, BUN 12, Creatinine 0.94, Estim Creat Clear Calc 128.93, Est GFR (MDRD) Non-Af 97, BUN/Creatinine Ratio 12.3, Glucose 121 H, Calcium 9.2 12/20/24 23:19: POC Glucose 222 H 12/21/24 03:42: WBC 7.4, RBC 5.23, Hgb 14.2, Hct 45.3, MCV 86.6, MCH 27.2, MCHC 31.3 L, RDW Std Deviation 43.9, RDW Coeff of Tee 13.8, Plt Count 191, MPV 9.8, Immature Gran % (Auto) 0.300, Neut % (Auto) 68.8, Lymph % (Auto) 15.1 L, Glasscock % (Auto) 13.4 H, Eos % (Auto) 1.9, Baso % (Auto) 0.5, AbsoluteNeuts (auto) 5.1, Absolute Lymphs (auto) 1.12, Nucleated RBC % 0, Sodium 140, Potassium 4.5, Chloride 101, Carbon Dioxide 29.1, Anion Gap 10, BUN 12, Creatinine 0.86, Estim Creat Clear Calc 138.62, Est GFR (MDRD) Non-Af 103, BUN/Creatinine Ratio 13.8, Glucose 126 H, Calcium 9.2 12/21/24 07:04: POC Glucose 99 Radiography Diagnostic Testing: Radiology Impression Hand X-Ray 12/20/24 14:52 IMPRESSION: Severe soft tissue swelling. No significant bony abnormality Reading Location: [facility] Physical Exam Narrative Right upper Extremity Inspection: Dorsal hand swelling with superficial blistering, but greatly improved since yesterday.No streaking erythema. Palpation: No crepitus. Compartments of the forearm and the hand are all soft. No tenderness to palpation of the hand today. No tenderness to palpation with extension of the fingers. Motor: Able to bend and extend all MP, PIP, and DIP joints. He can now make a fist. Sensory: Intact to light touch on the radial and ulnar borders. Vascular: Finger tips are warm and well perfused with <2 second capillary refill. Assessment & Plan Assessment/Plan (1) Extravasation of intravenous contrast medium: (2) Swelling of right hand: PLAN: Plan Great improvement overnight with rest and elevation I am comfortable with him being discharged back to the rehab facility today withfollow-up next week Patient will need bacitracin and Band-Aids as needed for excoriations from the superficial blistering, but there are no large wounds on the back of his hand today (I will monitor for development of any wounds). I would continue rest andelevation with the arm elevator at the rehab facility. Patient happy with the plan Charges/Coding Visit Charges Inpatient E&M: 60698 [facility] Hosp L1 12/21/24 0899 Cosigner Signature (if applicable): CC: ~ Signed [facility]07-25-2025 History and physical note Author Yaz Dee [facility] Note Date/Time December 20, 2024 6:31 pm [facility] Medical Records Department [address] [place] [address] H&P Exam - Hospitalist 12/20/24 1759 MR#: [id number] Acct: [id number] Name: CARLOS ALBERTO KELLEY Jr. Rep #:[id number] : 1970 54 From: Yaz Dee MD PCP: Dr. Jhonatan Garcia, DO Status:ADM BRENNA Location: [facility] LO759-7 HPI - General General Date of Admission: 12/20/24 Date of Service: 12/20/24 Chief Complaint: Right hand pain and swelling HPI Narrative CARLOS ALBERTO KELLEY, is [id number] male history of hypertension, gout, cardiomyopathy, GERD, diabetes, depression and anxiety, KOFFI who presented [facility] ED 12/20/2024 for right hand pain, swelling, itching that started yesterday when he was in the ED for a CT scan of the chest with IV contrast. The contrast infiltrated out of the IV so he had an IV placed in his left hand and then got the IV contrasted study. No symptoms in left hand at all. Re-presented today due to increased swelling and redness all the way up right upperarm. In the ED temp 98.6, heart rate 72 and blood pressure 145/88, respiratory 18 pulse ox 99% on room air. CBC and BMP fairly benign, hand x-ray with severe soft tissue swelling. Plastic surgery was contacted in the ED and evaluated, recommended admission for observation with aggressive elevation. Hospitalist contacted for admission. Patient evaluated at bedside. Patient reports historyas above with the swelling developing since yesterday, patient has difficulty moving hand due to the swelling more so than the pain. Denies fever, reports his right foot/ankle gets little bit irritated due to the fixator that is due tocome off January 01 but no other new or acute complaints [facility] Medical History Ankle fracture, right Insomnia Obstructive sleep apnea Depression Hyperlipemia Cardiomyopathy Muscle weakness (generalized) Anxiety Asthma Type 2 diabetes mellitus COPD (chronic obstructive pulmonary disease) CHF (congestive heart failure) Glaucoma Gout Diabetes Hypertension Home Medications ?Medication ?Instructions ?Recorded ?Last Taken ?Type allopurinol 100 mg tablet 100 mg PO DAILY 10/23/22 Unk nown History amlodipine 5 mg tablet 5 mg PO DAILY 10/23/22 Unkno wn History hydrochlorothiazide 50 mg tablet 50 mg PO DAILY Unknown History omeprazole 40 mg capsule,delayed 40 mg PO DAILY Unknown History release rivaroxaban 20 mg tablet (Xarelto) 20 mg PO DAILY #30 tabs 10/23/22 Unknown Rx albuterol sulfate 2.5 mg/3 mL 2.5 mg inhalation Q6H Unknown History (0.083 %) solution for nebulization bempedoic acid 180 mg tablet 180 mg PO DAILY 12/19/24 Unknown History (Nexletol) dofetilide 250 mcg capsule 250 mcg PO BID 12/19/24 Unk nown History duloxetine 20 mg capsule,delayed 20 mg PO DAILY Unknown History release hydroxyzine pamoate 25 mg capsule 25 mg PO Q6H PRN anx iety 12/19/24 Unknown History metoprolol succinate 100 mg 100 mg PO BID 12/19/24 Unk nown History tablet,extended release 24 hr potassium chloride 20 mEq 20 meq PO DAILY 12/19/24 Unk nown History tablet,extended release(part/cryst) pravastatin 40 mg tablet 40 mg PO DAILY 12/19/24 Unkn own History spironolactone 25 mg tablet 25 mg PO DAILY 12/19/24 Un known History tizanidine 2 mg tablet 2 mg PO TID 12/19/24 Unknown History tramadol 50 mg tablet 50 mg PO 4X/DAY PRN PRN pain 12/19/24 Unknown History trazodone 100 mg tablet 100 mg PO QHS 12/19/24 Unkno wn History acetaminophen 325 mg capsule 650 mg PO Q4H PRN fever o r pain 12/20/24 Unknown History cetirizine 10 mg tablet 10 mg PO DAILY 12/20/24 Unkn own History dulaglutide 1.5 mg/0.5 mL 1.5 mg subcut .WEEKLY Unknown History subcutaneous pen injector (Trulicity) fluticasone 100 mcg-salmeterol 50 1 inh inhalation BID 12/20/24 Unknown History mcg/dose blistr powdr for inhalation (Advair Diskus) fluticasone 100 mcg-salmeterol 50 2 inh inhalation BID 12/20/24 Unknown History mcg/dose blistr powdr for inhalation (Advair Diskus) Allergy/AdvReac Type Severity Reaction Status Date / Time Vanudci-OWX-IoY Reductase Allergy Mild Hives Verified 12/20/24 13:07 Inhibitor Social History housing: assisted Smoking Status: Former smoker ROS ROS Narrative General: Denies fever/chills HENT: Denies headache, denies stuffy nose, denies sore throat EYES: Denies changes in vision Resp: Denies cough, denies shortness of breath Cardiac: Denies chest pain GI: Denies abdominal pain, denies changes in bowel, denies nausea/vomiting : Denies changes in urination Extremity: Right upper extremity swelling primarily in hand and wrist MSK: Denies weakness Neuro: Denies any numbness/tingling Heme: Denies any bleeding or bruising Skin: Erythema of right hand and wrist with bullae on the dorsum Psychiatric: No complaints voiced Vital Signs Vital Signs Vital Signs: 12/20/24 13:05 12/20/24 15:14 12/20/24 17:00 Temperature 98.6 F 98.7 F Temperature Source Oral Oral Pulse Rate 72 68 65 Respiratory Rate 18 15 16 Blood Pressure 145/88 H 153/84 H 165/91 H Blood Pressure Mean 107 107 115 Pulse Ox 99 93 95 Oxygen Delivery Method Room Air Room Air Room Air Weight Weight: 144.7 kg Body Mass Index (BMI) 47.1 Physical Exam Narrative General: Alert, oriented, no apparent distress HEENT: Atraumatic, normocephalic Eyes: Anicteric, normal conjunctiva, extraocular movements grossly intact Neck: Supple Respiratory: Clear to auscultation bilaterally, normal respiratory effort Cardiovascular: Regular rate and rhythm GI: Soft, nontender, nondistended Extremities: Swelling in hand and wrist Musculoskeletal: Left lower extremity in a boot, right lower extremity in fixator Neuro: No overt focal neurological deficits Skin: Erythema of right hand with swelling and bullae on back of hand Psych: Cooperative Results Lab / Micro Data 12/20/24 15:04 12/20/24 15:04 Labs: Laboratory Results - last 24 hr 12/20/24 15:04: WBC 8.4, RBC 5.31, Hgb 14.3, Hct 46.2, MCV 87.0, MCH 26.9 L, MCHC 31.0 L, RDW Std Deviation 44.4 H, RDW Coeff of Tee 13.9, Plt Count 198, MPV 9.8, Immature Gran % (Auto) 0.400, Neut % (Auto) 76.3 H, Lymph % (Auto) 10.6 L, Glasscock % (Auto) 10.6 H, Eos % (Auto) 1.6, Baso % (Auto) 0.5, Absolute Neuts (auto)6.4, Absolute Lymphs (auto) 0.89, Nucleated RBC % 0, Sodium 134, Potassium 4.2, Chloride 98, Carbon Dioxide 26.7, Anion Gap 10, BUN 12, Creatinine 0.94, Estim Creat Clear Calc 128.93, Est GFR (MDRD) Non-Af 97, BUN/Creatinine Ratio 12.3, Glucose 121 H, Calcium 9.2 Imaging Radiology Impression Hand X-Ray 12/20/24 14:52 IMPRESSION: Severe soft tissue swelling. No significant bony abnormality Reading Location: [facility] Assessment & Plan Assessment/Plan (1) Localized swelling on right hand: PLAN: Plan # Right hand swelling - Status post contrast extravasation - Elevate hand - Plastic surgery consult - Supportive care # Recent ankle fracture - Patient in SNF due to this currently - Supportive care # History of heart failure - Daily weights, I's and O's - Vitally stable, does not appear to be in exacerbation #Gout -Continue home allopurinol #GERD -Continue PPI #Hypertension - Continue medications #Depression/anxiety -Continue home medications #Paroxysmal Atrial Fibrillation -Rate control: Dofetilide, metoprolol -Anticoagulation: Xarelto #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 Yaz Dee MD; Dr. Jhonatan Garcia, ~ Signed [facility] Work Phone: 1(396) 103-200607-25-2025 History and physical note Author Yaz Dee [facility] Note Date/Time December 20, 2024 6:31 pm [facility] Medical Records Department [address] [place] [id number] H&P Exam - Hospitalist 12/20/24 1752 MR#: [id number] Acct: [id number] Name: CARLOS ALBERTO KELLEY Jr. Rep #:[id number] : 1970 54 From: Yaz Dee MD PCP: Dr. Jhonatan Garcia, Status:ADM BRENNA Location: [facility] SF791-7 HPI - General General Date of Admission: 12/20/24 Date of Service: 12/20/24 Chief Complaint: Right hand pain and swelling HPI Narrative CARLOS ALBERTO KELLEY, is [id number] male history of hypertension, gout, cardiomyopathy, GERD, diabetes, depression and anxiety, KOFFI who presented [facility] ED 12/20/2024 for right hand pain, swelling, itching that started yesterday when he was in the ED for a CT scan of the chest with IV contrast. The contrast infiltrated out of the IV so he had an IV placed in his left hand and then got the IV contrasted study. No symptoms in left hand at all. Re-presented today due to increased swelling and redness all the way up right upperarm. In the ED temp 98.6, heart rate 72 and blood pressure 145/88, respiratory 18 pulse ox 99% on room air. CBC and BMP fairly benign, hand x-ray with severe soft tissue swelling. Plastic surgery was contacted in the ED and evaluated, recommended admission for observation with aggressive elevation. Hospitalist contacted for admission. Patient evaluated at bedside. Patient reports historyas above with the swelling developing since yesterday, patient has difficulty moving hand due to the swelling more so than the pain. Denies fever, reports his right foot/ankle gets little bit irritated due to the fixator that is due tocome off January 01 but no other new or acute complaints [facility] Medical History Ankle fracture, right Insomnia Obstructive sleep apnea Depression Hyperlipemia Cardiomyopathy Muscle weakness (generalized) Anxiety Asthma Type 2 diabetes mellitus COPD (chronic obstructive pulmonary disease) CHF (congestive heart failure) Glaucoma Gout Diabetes Hypertension Home Medications ?Medication ?Instructions ?Recorded ?Last Taken ?Type allopurinol 100 mg tablet 100 mg PO DAILY 10/23/22 Unk nown History amlodipine 5 mg tablet 5 mg PO DAILY 10/23/22 Unkno wn History hydrochlorothiazide 50 mg tablet 50 mg PO DAILY Unknown History omeprazole 40 mg capsule,delayed 40 mg PO DAILY Unknown History release rivaroxaban 20 mg tablet (Xarelto) 20 mg PO DAILY #30 tabs 10/23/22 Unknown Rx albuterol sulfate 2.5 mg/3 mL 2.5 mg inhalation Q6H Unknown History (0.083 %) solution for nebulization bempedoic acid 180 mg tablet 180 mg PO DAILY 12/19/24 Unknown History (Nexletol) dofetilide 250 mcg capsule 250 mcg PO BID 12/19/24 Unk nown History duloxetine 20 mg capsule,delayed 20 mg PO DAILY Unknown History release hydroxyzine pamoate 25 mg capsule 25 mg PO Q6H PRN anx iety 12/19/24 Unknown History metoprolol succinate 100 mg 100 mg PO BID 12/19/24 Unk nown History tablet,extended release 24 hr potassium chloride 20 mEq 20 meq PO DAILY 12/19/24 Unk nown History tablet,extended release(part/cryst) pravastatin 40 mg tablet 40 mg PO DAILY 12/19/24 Unkn own History spironolactone 25 mg tablet 25 mg PO DAILY 12/19/24 Un known History tizanidine 2 mg tablet 2 mg PO TID 12/19/24 Unknown History tramadol 50 mg tablet 50 mg PO 4X/DAY PRN PRN pain 12/19/24 Unknown History trazodone 100 mg tablet 100 mg PO QHS 12/19/24 Unkno wn History acetaminophen 325 mg capsule 650 mg PO Q4H PRN fever o r pain 12/20/24 Unknown History cetirizine 10 mg tablet 10 mg PO DAILY 12/20/24 Unkn own History dulaglutide 1.5 mg/0.5 mL 1.5 mg subcut .WEEKLY Unknown History subcutaneous pen injector (Trulicity) fluticasone 100 mcg-salmeterol 50 1 inh inhalation BID 12/20/24 Unknown History mcg/dose blistr powdr for inhalation (Advair Diskus) fluticasone 100 mcg-salmeterol 50 2 inh inhalation BID 12/20/24 Unknown History mcg/dose blistr powdr for inhalation (Advair Diskus) Allergy/AdvReac Type Severity Reaction Status Date / Time [id number] Reductase Allergy Mild Hives Verified 12/20/24 13:07 Inhibitor Social History housing: assisted Smoking Status: Former smoker ROS ROS Narrative General: Denies fever/chills HENT: Denies headache, denies stuffy nose, denies sore throat EYES: Denies changes in vision Resp: Denies cough, denies shortness of breath Cardiac: Denies chest pain GI: Denies abdominal pain, denies changes in bowel, denies nausea/vomiting : Denies changes in urination Extremity: Right upper extremity swelling primarily in hand and wrist MSK: Denies weakness Neuro: Denies any numbness/tingling Heme: Denies any bleeding or bruising Skin: Erythema of right hand and wrist with bullae on the dorsum Psychiatric: No complaints voiced Vital Signs Vital Signs Vital Signs: 12/20/24 13:05 12/20/24 15:14 12/20/24 17:00 Temperature 98.6 F 98.7 F Temperature Source Oral Oral Pulse Rate 72 68 65 Respiratory Rate 18 15 16 Blood Pressure 145/88 H 153/84 H 165/91 H Blood Pressure Mean 107 107 115 Pulse Ox 99 93 95 Oxygen Delivery Method Room Air Room Air Room Air Weight Weight: 144.7 kg Body Mass Index (BMI) 47.1 Physical Exam Narrative General: Alert, oriented, no apparent distress HEENT: Atraumatic, normocephalic Eyes: Anicteric, normal conjunctiva, extraocular movements grossly intact Neck: Supple Respiratory: Clear to auscultation bilaterally, normal respiratory effort Cardiovascular: Regular rate and rhythm GI: Soft, nontender, nondistended Extremities: Swelling in hand and wrist Musculoskeletal: Left lower extremity in a boot, right lower extremity in fixator Neuro: No overt focal neurological deficits Skin: Erythema of right hand with swelling and bullae on back of hand Psych: Cooperative Results Lab / Micro Data 12/20/24 15:04 12/20/24 15:04 Labs: Laboratory Results - last 24 hr 12/20/24 15:04: WBC 8.4, RBC 5.31, Hgb 14.3, Hct 46.2, MCV 87.0, MCH 26.9 L, MCHC 31.0 L, RDW Std Deviation 44.4 H, RDW Coeff of Tee 13.9, Plt Count 198, MPV 9.8, Immature Gran % (Auto) 0.400, Neut % (Auto) 76.3 H, Lymph % (Auto) 10.6 L, Glasscock % (Auto) 10.6 H, Eos % (Auto) 1.6, Baso % (Auto) 0.5, Absolute Neuts (auto)6.4, Absolute Lymphs (auto) 0.89, Nucleated RBC % 0, Sodium 134, Potassium 4.2, Chloride 98, Carbon Dioxide 26.7, Anion Gap 10, BUN 12, Creatinine 0.94, Estim Creat Clear Calc 128.93, Est GFR (MDRD) Non-Af 97, BUN/Creatinine Ratio 12.3, Glucose 121 H, Calcium 9.2 Imaging Radiology Impression Hand X-Ray 12/20/24 14:52 IMPRESSION: Severe soft tissue swelling. No significant bony abnormality Reading Location: [facility] Assessment & Plan Assessment/Plan (1) Localized swelling on right hand: PLAN: Plan # Right hand swelling - Status post contrast extravasation - Elevate hand - Plastic surgery consult - Supportive care # Recent ankle fracture - Patient in SNF due to this currently - Supportive care # History of heart failure - Daily weights, I's and O's - Vitally stable, does not appear to be in exacerbation #Gout -Continue home allopurinol #GERD -Continue PPI #Hypertension - Continue medications #Depression/anxiety -Continue home medications #Paroxysmal Atrial Fibrillation -Rate control: Dofetilide, metoprolol -Anticoagulation: Xarelto #DVT ppx: 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 Yaz Dee MD; Dr. Jhonatan Garcia, DO~ Signed [facility] Work Phone: 1(202) 167-525507-25-2025 Evaluation note* Diagnosis Onset Date Resolution Status Admit Date IV infiltrate acute December 20, 2024 5:52pm Localized swelling on right hand acu te December 20, 2024 5:52pm [facility] Work Phone: 1(678) 710-514907-25-2025 Evaluation note* Diagnosis Onset Date Resolution Status Admit Date Extravasation of intravenous contrast medium acute December 20, 2024 5:52pm IV infiltrate acute December 20, 2024 5:52pm Localized swelling on right hand acu te December 20, 2024 5:52pm Swelling of right hand acute Ju 2024 5:52pm [facility] Work Phone: [phone]) 723-561107-25-2025 Discharge summary Author Robles Botello [facility] Note Date/Time December 20, 2024 4:57 pm [facility] Medical Records Department [address] [place] [address] Emergency Department Summary 12/20/24 MR#: [id number] Acct: [id number] Name: CARLOS ALBERTO KELLEY Jr. Rep #:[id number] : 1970 54 From: Robles Botello MD PCP: Dr. Jhonatan Garcia, DO Status:REG ER Location: ED HPI History of Present Illness Chief Complaint: Allergic Reaction Informant: patient and EMS Narrative Narrative: 54-year-old male presents with right hand pain, swelling, itching that started yesterday when he was here and had a CT of the chest with IV contrast, the contrast infiltrated out of the IV that was in his right hand and cause this. They then put the IV in his left hand and did the IV contrasted study, he has nosymptoms in the left arm or hand at all. However in the right today it was moreswollen and red and swollen all the way up to his right upper arm, he states that is actually better now, but he has blistering on the dorsum of the right hand and hand is extremely swollen. Denies any tingling or numbness peer deniesany fevers or chills. He states it is painful because of the swelling but is also very itchy. [facility] Medical History Ankle fracture, right Insomnia Obstructive sleep apnea Depression Hyperlipemia Cardiomyopathy Muscle weakness (generalized) Anxiety Asthma Type 2 diabetes mellitus COPD (chronic obstructive pulmonary disease) CHF (congestive heart failure) Glaucoma Gout Diabetes Hypertension Home Medications ?Medication ?Instructions ?Recorded ?Last Taken ?Type allopurinol 100 mg tablet 100 mg PO DAILY 10/23/22 Unk nown History amlodipine 5 mg tablet 5 mg PO DAILY 10/23/22 Unkno wn History hydrochlorothiazide 50 mg tablet 50 mg PO DAILY Unknown History omeprazole 40 mg capsule,delayed 40 mg PO DAILY Unknown History release rivaroxaban 20 mg tablet (Xarelto) 20 mg PO DAILY #30 tabs 10/23/22 Unknown Rx albuterol sulfate 2.5 mg/3 mL 2.5 mg inhalation Q6H Unknown History (0.083 %) solution for nebulization bempedoic acid 180 mg tablet 180 mg PO DAILY 12/19/24 Unknown History (Nexletol) dofetilide 250 mcg capsule 250 mcg PO BID 12/19/24 Unk nown History duloxetine 20 mg capsule,delayed 20 mg PO DAILY Unknown History release hydroxyzine pamoate 25 mg capsule 25 mg PO Q6H PRN anx iety 12/19/24 Unknown History metoprolol succinate 100 mg 100 mg PO BID 12/19/24 Unk nown History tablet,extended release 24 hr potassium chloride 20 mEq 20 meq PO DAILY 12/19/24 Unk nown History tablet,extended release(part/cryst) pravastatin 40 mg tablet 40 mg PO DAILY 12/19/24 Unkn own History spironolactone 25 mg tablet 25 mg PO DAILY 12/19/24 Un known History tizanidine 2 mg tablet 2 mg PO TID 12/19/24 Unknown History tramadol 50 mg tablet 50 mg PO 4X/DAY PRN PRN pain 12/19/24 Unknown History trazodone 100 mg tablet 100 mg PO QHS 12/19/24 Unkno wn History acetaminophen 325 mg capsule 650 mg PO Q4H PRN fever o r pain 12/20/24 Unknown History cetirizine 10 mg tablet 10 mg PO DAILY 12/20/24 Unkn own History dulaglutide 1.5 mg/0.5 mL 1.5 mg subcut .WEEKLY Unknown History subcutaneous pen injector (Trulicity) fluticasone 100 mcg-salmeterol 50 1 inh inhalation BID 12/20/24 Unknown History mcg/dose blistr powdr for inhalation (Advair Diskus) fluticasone 100 mcg-salmeterol 50 2 inh inhalation BID 12/20/24 Unknown History mcg/dose blistr powdr for inhalation (Advair Diskus) Allergy/AdvReac Type Severity Reaction Status Date / Time Xmcdqax-COX-CaU Reductase Allergy Mild Hives Verified 12/20/24 13:07 Inhibitor Social History housing: assisted Smoking Status: Former smoker ROS ROS ED Constitutional Constitutional ED: Denies chills or fever(s) Musculoskeletal Musculoskeletal: Reports extremity pain; Denies neck pain Integumentary Reports rash; Denies Abrasions or wounds Neurologic Neurologic: Denies paresthesias or weakness EXAM Physical Exam Const Vital Signs: 12/20/24 13:05 12/20/24 15:14 Temperature 98.6 F 98.7 F Temperature Source Oral Oral Pulse Rate 72 68 Respiratory Rate 18 15 Blood Pressure 145/88 H 153/84 H Blood Pressure Mean 107 107 Pulse Ox 99 93 Oxygen Delivery Method Room Air Room Air Positive well nourished, well developed and obese General Appearance ED: well developed and NAD Nutritional Appearance: obese Neck full ROM and supple Back/Spine normal ROM and normal to inspection Extremity Extremity Narrative: Right lower extremity is in an external fixator. The right hand is so edematousthat he cannot bend his fingers but he can straighten them and there is no severe pain. Brisk cap refill distal fingers all of them on the right. He has some nonruptured bullae on the dorsum of the hand there is multiple, one of themis 3 cm in diameter at the biggest. There is erythema throughout this entire area, it is not superficially tender, but the swollen hand is tender to palpation due to the amount of swelling at least. Erythema progresses to about the wrist and a little proximal but then stops and there is no tenderness in this area or more proximally. All compartments of the forearm and upper arm aresoft and nondistended and nontender he has full range of motion of the wrist, elbow, shoulder. The IV site on the dorsum of the left hand is benign, there isno swelling or erythema or bullae or tenderness. Neuro oriented x3, no focal motor deficits and no sensory deficits noted Sensorium / Orientation: alert Psych mental status grossly normal and thought process normal Skin no wounds Skin Narrative: Blanching erythematous rash throughout the right hand and dorsal wrist along with some bullae of the hand, see above MDM MDM MDM Narrative Medical decision making narrative: I obtained labs, and an x-ray of the right hand which my interpretation just shows soft tissue swelling and no subcutaneous tracking air or bony abnormality. I discussed with plastics Dr. Estrada, he came and evaluated patient. He agrees that it is unlikely that he has compartment syndrome of the hand but he advises elevation, and admission. Discussed with hospitalist, having nursing elevate the right upper extremity especially the hand, will put him on medical floor forobservation and plastics will follow. Lab Data Attestation: I reviewed the patient's lab results. Labs: Laboratory Results - last 24 hr 12/20/24 15:04 WBC 8.4 RBC 5.31 Hgb 14.3 Hct 46.2 MCV 87.0 MCH 26.9 L MCHC 31.0 L RDW Std Deviation 44.4 H RDW Coeff of Tee 13.9 Plt Count 198 MPV 9.8 Immature Gran % (Auto) 0.400 Neut % (Auto) 76.3 H Lymph % (Auto) 10.6 L Glasscock % (Auto) 10.6 H Eos % (Auto) 1.6 Baso % (Auto) 0.5 Absolute Neuts (auto) 6.4 Absolute Lymphs (auto) 0.89 Nucleated RBC % 0 Sodium 134 Potassium 4.2 Chloride 98 Carbon Dioxide 26.7 Anion Gap 10 BUN 12 Creatinine 0.94 Estim Creat Clear Calc 128.93 Est GFR (MDRD) Non-Af 97 BUN/Creatinine Ratio 12.3 Glucose 121 H Calcium 9.2 Radiography Diagnostic Testing: Clinical Impression(s) from Imaging Studies Hand X-Ray 12/20/24 14:52 IMPRESSION: Severe soft tissue swelling. No significant bony abnormality Reading Location: [facility] Management Discussion w/another healthcare provider: Hospitalist and Mobile Solutions Architect Discharge Plan Dx/Rx/DC Orders Clinical Impression: Swelling of right hand, Extravasation of intravenous contrast medium Disposition Disposition: Acute Care Hospital [facility] What to do if you have Problems For any increased pain, shortness of breath, bleeding, nausea or vomiting, chestpain, or any unexpected problems, contact your Primary Care Provider. Call [facility] ([phone]) or report to the closest Emergency Room. Call 911 if necessary. 12/20/241656 <Electronically signed by Robles Botello MD> Cosigner Signature (if applicable): CC: Dr. Jhonatan Garcia, DO ~ Signed [facility] Work Phone: 1(730) 547-687607-25-2025 History and physical note [facility] Medical Records Department [address] [place] [address] H&P Exam - Hospitalist 12/20/24 1752 MR#: [id number] Acct: [id number] Name: CARLOS ALBERTO KELLEY Jr. Rep #:[id number] : 1970 54 From: aYz Dee MD PCP: Dr. Jhonatan Garcia, DO Status:ADM BRENNA Location: [place] [address] HPI - General General Date of Admission: 12/20/24 Date of Service: 12/20/24 Chief Complaint: Right hand pain and swelling HPI Narrative RAY WARREN, is [id number] male history of hypertension, gout, cardiomyopathy, GERD, diabetes, depression and anxiety, KOFFI who presented [facility] ED 12/20/2024 for right hand pain, swelling, itching that started yesterday when he was in the ED for a CT scan of the chest with IV contrast. The contrast infiltrated out of the IV so he had an IV placed in his left hand and then got theIV contrasted study. No symptoms in left hand at all. Re-presented today due to increased swelling and redness all the way up right upperarm. In the ED temp 98.6, heart rate 72 and blood pressure 145/88, respiratory 18 pulse ox 99% on room air. CBC and BMP fairly benign, hand x-ray with severe softtissue swelling. Plastic surgery was contacted in the ED and evaluated, recommended admission for observation with aggressive elevation. Hospitalist contacted for admission. Patient evaluated at bedside. Patient reports historyas above with the swelling developing since yesterday, patient has difficulty moving hand due to the swelling more so than the pain. Denies fever, reports his right foot/ank le gets little bit irritated due to the fixator that is due tocome off January 01 but no other new oracute complaints [facility] Medical History Ankle fracture, right Insomnia Obstructive sleep apnea Depression Hyperlipemia Cardiomyopathy Muscle weakness (generalized) Anxiety Asthma Type 2 diabetes mellitus COPD (chronic obstructive pulmonary disease) CHF (congestive heart failure) Glaucoma Gout Diabetes Hypertension Home Medications ?Medication ?Instructions ?Recorded ?Last Taken ?Type allopurinol 100 mg tablet 100 mg PO DAILY 10/23/22 Unk nown History amlodipine 5 mg tablet 5 mg PO DAILY 10/23/22 Unkno wn History hydrochlorothiazide 50 mg tablet 50 mg PO DAILY Unknown History omeprazole 40 mg capsule,delayed 40 mg PO DAILY Unknown History release rivaroxaban 20 mg tablet (Xarelto) 20 mg PO DAILY #30 tabs 10/23/22 Unknown Rx albuterol sulfate 2.5 mg/3 mL 2.5 mg inhalation Q6H Unknown History (0.083 %) solution for nebulization bempedoic acid 180 mg tablet 180 mg PO DAILY 12/19/24 Unknown History (Nexletol) dofetilide 250 mcg capsule 250 mcg PO BID 12/19/24 Unk nown History duloxetine 20 mg capsule,delayed 20 mg PO DAILY Unknown History release hydroxyzine pamoate 25 mg capsule 25 mg PO Q6H PRN anx iety 12/19/24 Unknown History metoprolol succinate 100 mg 100 mg PO BID 12/19/24 Unk nown History tablet,extended release 24 hr potassium chloride 20 mEq 20 meq PO DAILY 12/19/24 Unk nown History tablet,extended release(part/cryst) pravastatin 40 mg tablet 40 mg PO DAILY 12/19/24 Unkn own History spironolactone 25 mg tablet 25 mg PO DAILY 12/19/24 Un known History tizanidine 2 mg tablet 2 mg PO TID 12/19/24 Unknown History tramadol 50 mg tablet 50 mg PO 4X/DAY PRN PRN pain 12/19/24 Unknown History trazodone 100 mg tablet 100 mg PO QHS 12/19/24 Unkno wn History acetaminophen 325 mg capsule 650 mg PO Q4H PRN fever o r pain 12/20/24 Unknown History cetirizine 10 mg tablet 10 mg PO DAILY 12/20/24 Unkn own History dulaglutide 1.5 mg/0.5 mL 1.5 mg subcut .WEEKLY Unknown History subcutaneous pen injector (Trulicity) fluticasone 100 mcg-salmeterol 50 1 inh inhalation BID 12/20/24 Unknown History mcg/dose blistr powdr for inhalation (Advair Diskus) fluticasone 100 mcg-salmeterol 50 2 inh inhalation BID 12/20/24 Unknown History mcg/dose blistr powdr for inhalation (Advair Diskus) Allergy/AdvReac Type Severity Reaction Status Date / Time Vkugzhi-VVQ-HeB Reductase Allergy Mild Hives Verified 12/20/24 13:07 Inhibitor Social History housing: assisted Smoking Status: Former smoker ROS ROS Narrative General: Denies fever/chills HENT: Denies headache, denies stuffy nose, denies sore throat EYES: Denies changes in vision Resp: Denies cough, denies shortness of breath Cardiac: Denies chest pain GI: Denies abdominal pain, denies changes in bowel, denies nausea/vomiting : Denies changes in urination Extremity: Right upper extremity swelling primarily in hand and wrist MSK: Denies weakness Neuro: Denies any numbness/tingling Heme: Denies any bleeding or bruising Skin: Erythema of right hand and wrist with bullae on the dorsum Psychiatric: No complaints voiced Vital Signs Vital Signs Vital Signs: 12/20/24 13:05 12/20/24 15:14 12/20/24 17:00 Temperature 98.6 F 98.7 F Temperature Source Oral Oral Pulse Rate 72 68 65 Respiratory Rate 18 15 16 Blood Pressure 145/88 H 153/84 H 165/91 H Blood Pressure Mean 107 107 115 Pulse Ox 99 93 95 Oxygen Delivery Method Room Air Room Air Room Air Weight Weight: 144.7 kg Body Mass Index (BMI) 47.1 Physical Exam Narrative General: Alert, oriented, no apparent distress HEENT: Atraumatic, normocephalic Eyes: Anicteric, normal conjunctiva, extraocular movements grossly intact Neck: Supple Respiratory: Clear to auscultation bilaterally, normal respiratory effort Cardiovascular: Regular rate and rhythm GI: Soft, nontender, nondistended Extremities: Swelling in hand and wrist Musculoskeletal: Left lower extremity in a boot, right lower extremity in fixator Neuro: No overt focal neurological deficits Skin: Erythema of right hand with swelling and bullae on back of hand Psych: Cooperative Results Lab / Micro Data 12/20/24 15:04 12/20/24 15:04 Labs: Laboratory Results - last 24 hr 12/20/24 15:04: WBC 8.4, RBC 5.31, Hgb 14.3, Hct 46.2, MCV 87.0, MCH 26.9 L, MCHC 31.0 L, RDW Std Deviation 44.4 H, RDW Coeff of Tee 13.9, Plt Count 198, MPV 9.8, Immature Gran % (Auto) 0.400, Neut %(Auto) 76.3 H, Lymph % (Auto) 10.6 L, Glasscock % (Auto) 10.6 H, Eos % (Auto) 1.6, Baso % (Auto) 0.5, Absolute Neuts (auto)6.4, Absolute Lymphs (auto) 0.89, Nucleated RBC % 0, Sodium 134, Potassium 4.2, Chloride 98, Carbon Dioxide 26.7, Anion Gap 10, BUN 12, Creatinine 0.94, Estim Creat Clear Calc 128.93, Est GFR (MDRD) Non-Af 97, BUN/Creatinine Ratio 12.3, Glucose 121 H, Calcium 9.2 Imaging Radiology Impression Hand X-Ray 12/20/24 14:52 IMPRESSION: Severe soft tissue swelling. No significant bony abnormality Reading Location: [facility] Assessment & Plan Assessment/Plan (1) Localized swelling on right hand: PLAN: Plan # Right hand swelling - Status post contrast extravasation - Elevate hand - Plastic surgery consult - Supportive care # Recent ankle fracture - Patient in SNF due to this currently - Supportive care # History of heart failure - Daily weights, I's and O's - Vitally stable, does not appear to be in exacerbation #Gout -Continue home allopurinol #GERD -Continue PPI #Hypertension - Continue medications #Depression/anxiety -Continue home medications #Paroxysmal Atrial Fibrillation -Rate control: Dofetilide, metoprolol -Anticoagulation: Xarelto #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 Yaz Dee MD; Dr. Jhonatan Garcia, ~ Signed [facility]07-25-2025 Consult note Author Austin Estrada [facility] Note Date/Time December 20, 2024 4:04 pm [facility] Medical Records Department [address] [place] [address] Consultation - Surgical 12/20/24 1439 MR#: [id number] Acct: [id number] Name: CARLOS ALBERTO KELLEY Jr. Rep #:[id number] : 1970 54 From: Austin Estrada MD PCP: Dr. Jhonatan Garcia DO Status:REG ER Location: ED Assessment & Plan Assessment/Plan (1) IV infiltrate: (2) Localized swelling on right hand: PLAN: Plan Patient has significant swelling in the right hand secondary to dorsal hand IV infiltrate yesterday. I am recommending that we admit the patient to monitor. Patient needs strict elevation with the hand above the heart overnight (blue arm elevator ordered). Plastics will continue to follow. He may develop a dorsal hand wound, which plastic surgery will follow along for as needed. HPI Consult Data Date of Consult: 12/20/24 HPI Narrative HPI Narrative: CARLOS ALBERTO KELLEY is a 54 M who presents for right dorsal hand swelling and pain after IV infiltrate yesterday while getting contrast solution injected for CT scan. Patient has been in a assisted recently secondary to immobility because of aright lower extremity external fixator. He presented to the emergency department yesterday for chest pain and was getting a CT scan to rule out a DVT PE. He was discharged home to the assisted last night and return today for the pain and swelling. He reports sharp severe pain in the dorsum of his right hand worsened by movements and improved with rest and elevation. The emergency department is concerned because there is some blistering on the dorsum of the hand and he has decreased range of motion. He denies having any numbness or tingling in the right upper extremity/hand/fingers. Patient has a history of atrial fibrillation and is on Coumadin. [facility] Medical History Ankle fracture, right Insomnia Obstructive sleep apnea Depression Hyperlipemia Cardiomyopathy Muscle weakness (generalized) Anxiety Asthma Type 2 diabetes mellitus COPD (chronic obstructive pulmonary disease) CHF (congestive heart failure) Glaucoma Gout Diabetes Hypertension Home Medications ?Medication ?Instructions ?Recorded ?Last Taken ?Type allopurinol 100 mg tablet 100 mg PO DAILY 10/23/22 Unk nown History amlodipine 5 mg tablet 5 mg PO DAILY 10/23/22 Unkno wn History brimonidine 0.15 % eye drops 1 drp EACH EYE QHS Unknown History (Alphagan P) furosemide 20 mg tablet (Lasix) 20 mg PO DAILY #30 tab s 10/23/22 Unknown Rx hydrochlorothiazide 50 mg tablet 50 mg PO DAILY Unknown History lisinopril 40 mg tablet 40 mg PO DAILY 10/23/22 Unkn own History metformin 500 mg tablet,extended 500 mg PO QPM 3 Unknown History release 24 hr metoprolol tartrate 25 mg tablet 25 mg PO BID #60 tabs 10/23/22 Unknown Rx omeprazole 40 mg capsule,delayed 40 mg PO DAILY Unknown History release rivaroxaban 20 mg tablet (Xarelto) 20 mg PO DAILY #30 tabs 10/23/22 Unknown Rx timolol maleate 0.25 % eye drops 1 drp EACH EYE DAILY 10/23/22 Unknown History benzonatate 200 mg capsule 200 mg PO TID PRN cough #20 caps 02/12/23 Unknown Rx albuterol sulfate 2.5 mg/3 mL mg 12/19/24 Unknown Hist ory (0.083 %) solution for nebulization bempedoic acid 180 mg tablet 180 mg PO DAILY 12/19/24 Unknown History (Nexletol) dofetilide 250 mcg capsule 250 mcg PO BID 12/19/24 Unk nown History duloxetine 20 mg capsule,delayed 20 mg PO DAILY Unknown History release hydroxyzine pamoate 25 mg capsule PO 12/19/24 Unknown History metoprolol succinate 100 mg 100 mg PO BID 12/19/24 Unk nown History tablet,extended release 24 hr potassium chloride 20 mEq 20 meq PO DAILY 12/19/24 Unk nown History tablet,extended release(part/cryst) pravastatin 40 mg tablet 40 mg PO DAILY 12/19/24 Unkn own History rivaroxaban 10 mg tablet (Xarelto) 20 mg PO DAILY 11/27 09/20 Unknown History spironolactone 25 mg tablet 25 mg PO DAILY 12/19/24 Un known History tizanidine 2 mg tablet 2 mg PO TID 12/19/24 Unknown History tramadol 50 mg tablet 50 mg PO 4X/DAY PRN PRN pain 12/19/24 Unknown History trazodone 100 mg tablet 100 mg PO QHS 12/19/24 Unkno wn History Allergy/AdvReac Type Severity Reaction Status Date / Time Lszlujn-KXR-YiD Reductase Allergy Mild Hives Verified 12/20/24 13:07 Inhibitor Social History housing: assisted Smoking Status: Former smoker Physical Exam Narrative Right upper Extremity Inspection: Dorsal hand swelling with superficial blistering. No streaking erythema. Palpation: No crepitus. Compartments of the forearm and the hand are all soft. Some tenderness to palpation of the dorsum of the hand. No tenderness to palpation with extension of the fingers. Motor: Able to bend and extend all MP, PIP, and DIP joints. He is unable to make a complete fist secondary to the swelling. Patient is able to give me a peace sign, thumbs up, and okay sign. Sensory: Intact to light touch on the radial and ulnar borders. Vascular: Finger tips are warm and well perfused with <2 second capillary refill. Lab / Micro Data 12/20/24 15:04 12/20/24 15:04 Imaging X-ray demonstrated soft tissue swelling no bony abnormalities Dorsal hand contrast noted Charges/Coding Visit Charges Office Visits / Consults: 13308 OV L3 New 30min 12/20/24 1604 <Electronically signed by Austin Estrada MD> Cosigner Signature (if applicable): CC: Dr. Jhonatan Garcia DO~ Signed [facility] Work Phone: [phone] Discharge summary [facility] Medical Records Department [address] [place] [address] Emergency Department Summary 12/20/24 MR#: [id number] Acct: [id number] Name: CARLOS ALBERTO KELLEY Jr. Rep #:[id number] : 1970 54 From: Robles Botello MD PCP: Dr. Jhonatan Garcia DO Status:REG ER Location: ED HPI History of Present Illness Chief Complaint: Allergic Reaction Informant: patient and EMS Narrative Narrative: 54-year-old male presents with right hand pain, swelling, itching that started yesterday when he was here and had a CT of the chest with IV contrast, the contrast infiltrated out of the IV that was in his right hand and cause this. They then put the IV in his left hand and did the IV contrasted study, he has nosymptoms in the left arm or hand at all. However in the right today it was moreswollen and red and swollen all the way up to his right upper arm, he states that is actually better now, but he has blistering on the dorsum of the right hand and hand is extremely swollen. Denies any tingling or numbness peer deniesany fevers or chills. He states it is painful because of the swelling but is also very itchy. [facility] Medical History Ankle fracture, right Insomnia Obstructive sleep apnea Depression Hyperlipemia Cardiomyopathy Muscle weakness (generalized) Anxiety Asthma Type 2 diabetes mellitus COPD (chronic obstructive pulmonary disease) CHF (congestive heart failure) Glaucoma Gout Diabetes Hypertension Home Medications ?Medication ?Instructions ?Recorded ?Last Taken ?Type allopurinol 100 mg tablet 100 mg PO DAILY 10/23/22 Unk nown History amlodipine 5 mg tablet 5 mg PO DAILY 10/23/22 Unkno wn History hydrochlorothiazide 50 mg tablet 50 mg PO DAILY Unknown History omeprazole 40 mg capsule,delayed 40 mg PO DAILY Unknown History release rivaroxaban 20 mg tablet (Xarelto) 20 mg PO DAILY #30 tabs 10/23/22 Unknown Rx albuterol sulfate 2.5 mg/3 mL 2.5 mg inhalation Q6H Unknown History (0.083 %) solution for nebulization bempedoic acid 180 mg tablet 180 mg PO DAILY 12/19/24 Unknown History (Nexletol) dofetilide 250 mcg capsule 250 mcg PO BID 12/19/24 Unk nown History duloxetine 20 mg capsule,delayed 20 mg PO DAILY Unknown History release hydroxyzine pamoate 25 mg capsule 25 mg PO Q6H PRN anx iety 12/19/24 Unknown History metoprolol succinate 100 mg 100 mg PO BID 12/19/24 Unk nown History tablet,extended release 24 hr potassium chloride 20 mEq 20 meq PO DAILY 12/19/24 Unk nown History tablet,extended release(part/cryst) pravastatin 40 mg tablet 40 mg PO DAILY 12/19/24 Unkn own History spironolactone 25 mg tablet 25 mg PO DAILY 12/19/24 Un known History tizanidine 2 mg tablet 2 mg PO TID 12/19/24 Unknown History tramadol 50 mg tablet 50 mg PO 4X/DAY PRN PRN pain 12/19/24 Unknown History trazodone 100 mg tablet 100 mg PO QHS 12/19/24 Unkno wn History acetaminophen 325 mg capsule 650 mg PO Q4H PRN fever o r pain 12/20/24 Unknown History cetirizine 10 mg tablet 10 mg PO DAILY 12/20/24 Unkn own History dulaglutide 1.5 mg/0.5 mL 1.5 mg subcut .WEEKLY Unknown History subcutaneous pen injector (Trulicity) fluticasone 100 mcg-salmeterol 50 1 inh inhalation BID 12/20/24 Unknown History mcg/dose blistr powdr for inhalation (Advair Diskus) fluticasone 100 mcg-salmeterol 50 2 inh inhalation BID 12/20/24 Unknown History mcg/dose blistr powdr for inhalation (Advair Diskus) Allergy/AdvReac Type Severity Reaction Status Date / Time Rubihra-OGB-PeZ Reductase Allergy Mild Hives Verified 12/20/24 13:07 Inhibitor Social History housing: assisted Smoking Status: Former smoker ROS ROS ED Constitutional Constitutional ED: Denies chills or fever(s) Musculoskeletal Musculoskeletal: Reports extremity pain; Denies neck pain Integumentary Reports rash; Denies Abrasions or wounds Neurologic Neurologic: Denies paresthesias or weakness EXAM Physical Exam Const Vital Signs: 12/20/24 13:05 12/20/24 15:14 Temperature 98.6 F 98.7 F Temperature Source Oral Oral Pulse Rate 72 68 Respiratory Rate 18 15 Blood Pressure 145/88 H 153/84 H Blood Pressure Mean 107 107 Pulse Ox 99 93 Oxygen Delivery Method Room Air Room Air Positive well nourished, well developed and obese General Appearance ED: well developed and NAD Nutritional Appearance: obese Neck full ROM and supple Back/Spine normal ROM and normal to inspection Extremity Extremity Narrative: Right lower extremity is in an external fixator. The right hand is so edematousthat he cannot bend his fingers but he can straighten them and there is no severe pain. Brisk cap refill distal fingers all of them on the right. He has some nonruptured bullae on the dorsum of the hand there is multiple, one of themis 3 cm in diameter at the biggest. There is erythema throughout this entire area, it is not superficially tender, but the swollen hand is tender to palpation due to the amount of swelling at least. Erythema progresses to about the wrist and a little proximal but then stops and there isno tenderness in this area or more proximally. All compartments of the forearm and upper arm aresoft and nondistended and nontender he has full range of motion of the wrist, elbow, shoulder. The IV site on the dorsum of the left hand is benign, there isno swelling or erythema or bullae or tenderness. Neuro oriented x3, no focal motor deficits and no sensory deficits noted Sensorium / Orientation: alert Psych mental status grossly normal and thought process normal Skin no wounds Skin Narrative: Blanching erythematous rash throughout the right hand and dorsal wrist along with some bullae of the hand, see above MDM MDM MDM Narrative Medical decision making narrative: I obtained labs, and an x-ray of the right hand which my interpretation just shows soft tissue swelling and no subcutaneous tracking air or bony abnormality. I discussed with plastics Dr. Estrada, he came and evaluated patient. He agrees that it is unlikely that he has compartment syndrome of the hand but he advises elevation, and admission. Discussed with hospitalist, having nursing elevate the right upper extremity especially the hand, will put him on medical floor forobservation and plastics will follow. Lab Data Attestation: I reviewed the patient's lab results. Labs: Laboratory Results - last 24 hr 12/20/24 15:04 WBC 8.4 RBC 5.31 Hgb 14.3 Hct 46.2 MCV 87.0 MCH 26.9 L MCHC 31.0 L RDW Std Deviation 44.4 H RDW Coeff of Tee 13.9 Plt Count 198 MPV 9.8 Immature Gran % (Auto) 0.400 Neut % (Auto) 76.3 H Lymph % (Auto) 10.6 L Glasscock % (Auto) 10.6 H Eos % (Auto) 1.6 Baso % (Auto) 0.5 Absolute Neuts (auto) 6.4 Absolute Lymphs (auto) 0.89 Nucleated RBC % 0 Sodium 134 Potassium 4.2 Chloride 98 Carbon Dioxide 26.7 Anion Gap 10 BUN 12 Creatinine 0.94 Estim Creat Clear Calc 128.93 Est GFR (MDRD) Non-Af 97 BUN/Creatinine Ratio 12.3 Glucose 121 H Calcium 9.2 Radiography Diagnostic Testing: Clinical Impression(s) from Imaging Studies Hand X-Ray 12/20/24 14:52 IMPRESSION: Severe soft tissue swelling. No significant bony abnormality Reading Location: [facility] Management Discussion w/another healthcare provider: Hospitalist and Mobile [employer] Architect Discharge Plan Dx/Rx/DC Orders Clinical Impression: Swelling of right hand, Extravasation of intravenous contrast medium Disposition Disposition: Acute Care Hospital [facility] What to do if you have Problems For any increased pain, shortness of breath, bleeding, nausea or vomiting, chestpain, or any unexpected problems, contact your Primary Care Provider. Call [facility] ([phone]) or report tothe closest Emergency Room. Call 911 if necessary. 12/20/24 1657 Cosigner Signature (if applicable): CC: Dr. Jhonatan Garcia, DO ~ Signed [facility]07-25-2025 Consult note [facility] Medical Records Department [address] [place] [address] Consultation - Surgical 12/20/24 1439 MR#: [id number] Acct: [id number] Name: CARLOS ALBERTO KELLEY Jr. Rep #:[id number] : 1970 54 From: Austin Estrada MD PCP: Dr. Jhonatan Garcia DO Status:REG ER Location: ED Assessment & Plan Assessment/Plan (1) IV infiltrate: (2) Localized swelling on right hand: PLAN: Plan Patient has significant swelling in the right hand secondary to dorsal hand IV infiltrate yesterday. I am recommending that we admit the patient to monitor. Patient needs strict elevation with the hand above the heart overnight (blue arm elevator ordered). Plastics will continue to follow. He may develop a dorsal hand wound, which plastic surgery will follow along for as needed. HPI Consult Data Date of Consult: 12/20/24 HPI Narrative HPI Narrative: CARLOS ALBERTO KELLEY is a 54 M who presents for right dorsal hand swelling and pain after IV infiltrate yesterday while getting contrast solution injected for CT scan. Patient has been in a assisted recently secondary to immobility [facility]. He presented to the emergency department yesterday for chest pain and was getting a CT scan to rule out a DVT PE. He was discharged home to the assisted last night and return today for the pain and swelling. He reports sharp severe pain in the dorsum of his right hand worsened by movements and improved with rest and elevation. The emergency department is concerned because there is some blistering on the dorsum of the hand and he has decreased range of motion. He denies having any numbness or tingling in the right upper extremity/hand/fingers. Patient has a history of atrial fibrillation and is on Coumadin. [facility] Medical History Ankle fracture, right Insomnia Obstructive sleep apnea Depression Hyperlipemia Cardiomyopathy Muscle weakness (generalized) Anxiety Asthma Type 2 diabetes mellitus COPD (chronic obstructive pulmonary disease) CHF (congestive heart failure) Glaucoma Gout Diabetes Hypertension Home Medications ?Medication ?Instructions ?Recorded ?Last Taken ?Type allopurinol 100 mg tablet 100 mg PO DAILY 10/23/22 Unk nown History amlodipine 5 mg tablet 5 mg PO DAILY 10/23/22 Unkno wn History brimonidine 0.15 % eye drops 1 drp EACH EYE QHS Unknown History (Alphagan P) furosemide 20 mg tablet (Lasix) 20 mg PO DAILY #30 tab s 10/23/22 Unknown Rx hydrochlorothiazide 50 mg tablet 50 mg PO DAILY Unknown History lisinopril 40 mg tablet 40 mg PO DAILY 10/23/22 Unkn own History metformin 500 mg tablet,extended 500 mg PO QPM 3 Unknown History release 24 hr metoprolol tartrate 25 mg tablet 25 mg PO BID #60 tabs 10/23/22 Unknown Rx omeprazole 40 mg capsule,delayed 40 mg PO DAILY Unknown History release rivaroxaban 20 mg tablet (Xarelto) 20 mg PO DAILY #30 tabs 10/23/22 Unknown Rx timolol maleate 0.25 % eye drops 1 drp EACH EYE DAILY 10/23/22 Unknown History benzonatate 200 mg capsule 200 mg PO TID PRN cough #20 caps 02/12/23 Unknown Rx albuterol sulfate 2.5 mg/3 mL mg 12/19/24 Unknown Hist ory (0.083 %) solution for nebulization bempedoic acid 180 mg tablet 180 mg PO DAILY 12/19/24 Unknown History (Nexletol) dofetilide 250 mcg capsule 250 mcg PO BID 12/19/24 Unk nown History duloxetine 20 mg capsule,delayed 20 mg PO DAILY Unknown History release hydroxyzine pamoate 25 mg capsule PO 12/19/24 Unknown History metoprolol succinate 100 mg 100 mg PO BID 12/19/24 Unk nown History tablet,extended release 24 hr potassium chloride 20 mEq 20 meq PO DAILY 12/19/24 Unk nown History tablet,extended release(part/cryst) pravastatin 40 mg tablet 40 mg PO DAILY 12/19/24 Unkn own History rivaroxaban 10 mg tablet (Xarelto) 20 mg PO DAILY 11/27 09/20 Unknown History spironolactone 25 mg tablet 25 mg PO DAILY 12/19/24 Un known History tizanidine 2 mg tablet 2 mg PO TID 12/19/24 Unknown History tramadol 50 mg tablet 50 mg PO 4X/DAY PRN PRN pain 12/19/24 Unknown History trazodone 100 mg tablet 100 mg PO QHS 12/19/24 Unkno wn History Allergy/AdvReac Type Severity Reaction Status Date / Time Viygkgr-XNM-EvU Reductase Allergy Mild Hives Verified 12/20/24 13:07 Inhibitor Social History housing: assisted Smoking Status: Former smoker Physical Exam Narrative Right upper Extremity Inspection: Dorsal hand swelling with superficial blistering. No streaking erythema. Palpation: No crepitus. Compartments of the forearm and the hand are all soft. Some tenderness to palpation of the dorsum of the hand. No tenderness to palpation with extension of the fingers. Motor: Able to bend and extend all MP, PIP, and DIP joints. He is unable to make a complete fist secondary to the swelling. Patient is able to give me a peace sign, thumbs up, and okay sign. Sensory: Intact to light touch on the radial and ulnar borders. Vascular: Finger tips are warm and well perfused with <2 second capillary refill. Lab / Micro Data 12/20/24 15:04 12/20/24 15:04 Imaging X-ray demonstrated soft tissue swelling no bony abnormalities Dorsal hand contrast noted Charges/Coding Visit Charges Office Visits / Consults: 65747 OV L3 New 30min 12/20/24 1604 Cosigner Signature (if applicable): CC: Dr. Jhonatan Garcia, ~ Signed [facility]07-25-2025 Radiology Diagnostic study note [facility] Imaging Services [address] [place], [place] [id number] Hand Min 3 Views MR#: [id number] Acct: [id number] Name: CARLOS ALBERTO KELLEY Jr. Rep #: [id number] : 1970 M 54 From: Nevaeh Lundberg MD PCP: Dr. Jhonatan Garcia DO Status: REG ER Study:Hand Min 3 Views Date of Exam: Exam# [id number] Ordering Dr: Refugio Botello MD PROCEDURE: HAND MIN 3 VIEWS 12/20/2024 REASON FOR EXAM: PAIN/SWELLING TECHNIQUE: HAND MIN 3 VIEWS COMPARISON: None FINDINGS: Bones: No fracture. Joints: Mild joint space narrowing, marginal spurring distal interphalangeal joint 2nd and 5th digit. Soft tissues: Marked swelling of the hand particularly the dorsal aspect of the hand. Likely blistering. Other: No foreign body RAD/Hand Min 3 Views IMPRESSION: Severe soft tissue swelling. No significant bony abnormality Reading Location: [id number] CC: Dr. Robles Botello MD; Dr. Jhonatan Garcia DO ~ Warp Tying Machine Knotter: Signed [facility]07-25-2025 Radiology Diagnostic study note [facility] Imaging Services [address] [place], [place] [id number] CTA Chest W/WO Contrast MR#: [id number] Acct: [id number] Name: CARLOS ALBERTO KELLEY JrEverett Rep #: [id number] : 1970 M 54 From: Whitley Lewis MD PCP: Dr. Jhonatan Garcia DO Status: REG ER Study:CTA Chest W/WO Contrast Date of Exam: 12/20/24 Exam# [id number] Ordering Dr: Nguyễn Al DO PROCEDURE: CTA [...] No embolism, dissection, or pneumonia. Reading [facility] CC: Dr. Jhonatan Garcia DO; Dr. Nguyễn Al DO ~ Warp Tying Machine Knotter: Signed [facility]07-24-2025 Radiology Diagnostic study note [facility] Imaging Services [address] [place] [address] Chest 1 View (Portable) MR#: [id number] Acct: [id number] Name: CARLOS ALBERTO KELLEY Rep #: [id number] : 1970 M 54 From: Britney Avalos MD PCP: STACEY Pena Status: PRE E R Study:Chest 1 View (Portable) Date of Exam: 12/19/24 Exam# [id number] Ordering Dr: Nguyễn Al DO PROCEDURE: CHEST [...] atelectasis, or edema also possible. Reading Location: [id number] CC: STACEY Correa; Dr. Nguyễn Al DO ~ Warp Tying Machine Knotter: Signed [facility]07-20-2025 Hospital Discharge instructionsAdditional Instructions Plastic surgery discharge instructions Continue elevation of the right upper extremity especially at night and when lying in bed for the next several days for the swelling to decrease Recommend bacitracin or Neosporin and Band-Aids for any skin excoriations on the dorsum of the right hand secondary to the blistering. [facility] Phone: [phone]) 419-798907-18-2025 Hospital Discharge instructions Patient Education 12/13/2024 10:21:44 [...] and out of the lungs, such as pneumonia,acute respiratory distress syndrome, and cystic fibrosis. Medical [...] listen to your heart and check for cracklingor wheezing sounds in your lungs. Your may [...] that is connected to a motor will deliveroxygen through the mask. Ventilator. This treatment helps [...] breathing. Follow these instructions at home: Take lwen-moe-tirgkhy and prescription medicines only as told by [...] 05/20/2014 Document Revised: 04/27/2018 Document Reviewed: 11/30/2016 ScoreStream Patient Education 2020 Touch-Writer. Follow Up Care 12/10/2024 23:38:17 With:GIRMA CORREA Address: [address] [place] [address] [phone] When: Unknown Comments:Please call to schedule with your PCP when you discharge from [facility]. With:NANI QUINTANA DO, Orthopedic Address: [address], [place] [address] [phone] When:2-4 days Comments:Please call to schedule to have the external fixator removed. [facility] 07-18-2025 Note Discharge Instructions Thank you for allowing [facility] to assist you with your healthcare needs. The following is importantdischarge information regarding your hospital visit. Your Care Team [facility] Your Diagnosis Acute respiratory failure with hypoxia Bacteremia Chest pain CHF with cardiomyopathy COPD exacerbation HTN (hypertension) Morbid obesity with BMI of 40.0-44.9, adult Paroxysmal atrial fibrillation Sheltered homelessness Shortness of breath Type 2 diabetes mellitus with hyperlipidemia What to do next Follow Up Appointments Follow Up with GIRMA CORREA Where:[place] [address] [phone] Additional Information: Please call to schedule with your PCP when you discharge from [facility]. Follow Up with NANI QUINTANA DO, Orthopedic When:Within 2-4 days Where:[address], [place] [address] [phone] Additional Information: Please call to schedule to [...] and out of the lungs, such as pneumonia,acute respiratory distress syndrome, and cystic fibrosis. Medical [...] listen to your heart and check for cracklingor wheezing sounds in your lungs. Your may [...] that is connected to a motor will deliveroxygen through the mask. Ventilator. This treatment helps [...] breathing. Follow these instructions at home: Take wbwp-igi-wklmctp and prescription medicines only as told by [...] 05/20/2014 Document Revised: 04/27/2018 Document Reviewed: 11/30/2016 [employer]FinAnalytica Patient Education 2020 ScoreStream Inc. Additional Information VACCINATE! IT SAVES LIVES! Members of the community who have not yet received the COVID-19 vaccine and would like to receive it can visit one of [facility] vaccine clinics. There are many vaccine clinic locations within the [facility]. For locations and available times, please visit https://gettheshot.coronavirus.[place].gov/. It is important to note that some COVID mobile vaccine clinics are held outdoors and may be canceled in rainy or stormy conditions. To learn more about pediatric vaccinations (ages 5-11), we invite you to visit the [facility] webpage. https://www.[facility].org/pages/9502-Warqg-Wyqmtdjbxbu-Hybdceqmgo-Hnclb-Zey stions.htmlTo learn more about the COVID-19 vaccine, we invite you to visit the CDC website for a list of frequently asked questions.https://www.cdc.gov/coronavirus/2019-ncov/vaccines/faq.html [facility] Patient Portal Access Instructions: Stay connected with your healthcare team and access your personal medical information anytime with the [facility] Patient Portal. Please follow the directions below to create your [facility] account: 1.Access the email account you provided upon registration to the hospital/physician office.2.Look for an invitation email from [facility].3.Open the email and access the invitation link: AcceptInvitation to [facility].4.Fill in the required orr to create your account. To access your account, visit [email or web address]. Click the blue button labeled "Access Patient Portal" and then log in with the username and password that you created in the steps above. You will be able to view your test results, lab results, a summary of your visits, upcoming appointments and more. There is also a convenient messaging option where you can send secure messages to your [employer]. In addition, you will have the ability to download any documents or summaries to your computer and/or send the information securely to a physician. Remember that your healthcare information is confidential, so carefully consider who you will allowto register on the [facility] Patient Portal for access to your information. You can also access the [facility] Patient Portal on the [facility] frida. Simply click on "Patient Portal" and then log into your account. If you would like to receive a full copy of your medical records, please contact the [facility] Medical Records Department by calling [phone], Monday through Monday between 8 a.m. and [...] Call your local pharmacy or go to http://bit.[employer]/7H3Nq1s to find one close to you.3.Make use of household items: Use cat litter or old coffee grounds to dispose medications if other options arenot available. Mix your drugs with these household products, seal them in an airtight container andthrow it into the garbage. Call [facility]: [phone] to be sure your drugs can be [...] aware that I should contact my d angelaor. 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 Signature: Date/Time: Relationship to Patient: Witness Name/Signature: Date/Time: [facility]07-18-2025 Pastoral care Progress note Pastoral Care Note Entered On: 12/13/2024 9:35 EDT Performed On: 12/13/2024 9:33 EDT by Carlos Alberto Nesbitt Pastoral Care Type of Pastoral Visit : Follow up visit Spiritual Care Visit Initiated by : Staffing Administrator Spiritual Care Reason for Visit : General [...] was accepted back to SNF and is hopefulabout health improvements; pt is without a definite living situation but speaks of a couple of options that could work out for him; pt affirms torrie in God and seeing answers to prayer; pt welcomes presence and prayer for support Pastoral Care Visit Length : 15 minute(s) Carlos Alberto Nesbitt - 12/13/2024 9:33 EDT Digitally Signed by Carlos Alberto Nesbitt on 12/13/2024 09:33 AM [facility]07-17-2025 Note Date of Service 12/12/2024 Chief Complaint COPD exacerbation Subjective 54-year-old male with past medical history significant for COPD/asthma, KOFFI, tachycardia induced cardiomyopathy with recovered EF, atrial fibrillation anticoagulated with Xarelto, type 2 diabetes mellitus. Patient presented to [facility] emergency department 12/10/2024 with dyspnea and chest [...] any fever or chills. No headache or d izziness. Denies chest pain, palpitations. No cough, dyspnea, sputum production. Denies N/V/D/C. Nomelena/hematochezia. No dysuria or hematuria. No new paresthesias. Objective Vitals and Measurements T: 36.7 C (Oral) TMIN: 36.3 C (Oral) TMAX: 36.7 C (Oral) HR: 69 (Monitored) RR: 20 BP: 141/83 SpO2:93% Intake and Output 7AM Yesterday to 7AM [...] can be seen with pulmonaryhypertension. Cirrhotic liver andsplenomegaly. I have personally reviewed the images of [...] daily x 5 days total. Continue inhaled bronchodilators.Encourage incentive spirometer. Acute hypoxic respiratory failure resolved. Adequate oxygenation on room air. HTN- SBP goal 140 or less. Continue home antihypertensives. Paroxysmal atrial fibrillation rate controlled, in normal sinus rhythm. Continue home medications. Type 2 diabetes mellitus- Glucose goal 180 or less and avoid hypoglycemia. Corrective sliding scaleinsulin. ADA diet. Bacteremia patient was noted to [...] for SNF. He has been accepted at [facility] and pre- CERT has been started today. Patient is medically [...] by NARESH MORENO on 12/12/2024 12:39 PM [facility]07-17-2025 Pastoral care Progress note Pastoral Care Note Entered On: 12/12/2024 9:52 EDT Performed On: 12/12/2024 9:48 EDT by Carlos Alberto Nesbitt Pastoral Care Type of Pastoral Visit : Initial visit Spiritual Care Visit Initiated by : Staffing Administrator Spiritual Care Reason for Visit : General [...] pt speaks of her health and injury buthis concerns are more emotional and relational; pt indicates that his four months ago; ptwas living with a relative that was a difficult situation and interpersonal relationships were unhealthy; pt hopes to go back to an SNF for a time and then possibly make a move to other family; pt expresses his torrie in God and wants to get back to a former mu-ism; pt welcomes someone to talk with and for prayer to be given Pastoral Care Visit Length : 20 minute(s) Carlos Alberto Nesbitt - 12/12/2024 9:48 EDT Digitally Signed by Carlos Alberto Nesbitt on 12/12/2024 09:48 AM [facility]07-17-2025 Note* Exam Date Time Procedure Performing Provider Status 12/12/24 5:56 AM XR Chest 1 View MICK LEGGETT MD; Aut h (Verified) [id number] ORIGINAL EXAMINATION: ONE XRAY VIEW OF THE [...] 12/12/2024 6:38:29 AM Ordering Provider: VENITA BROTHERS [facility]07-16-2025 Note. MICRO - Microbiology PROCEDURE: Streptococcus [...] Locations *1: This test was performed at: [facility], [address] [place] [address], [facility] , [facility]07-16-2025 Note. MICRO - Microbiology PROCEDURE: Legionella Urine [...] Locations *1: This test was performed at: [facility], [address] [place] [address], [address]- , [facility]07-16-2025 Evaluation + Plan noteExtracted from: Title:History and Physical Author:ERLIN ALANIZ APRN-SUPERVISING FIRE MARSHAL Date:12/11/24 1. COPD exacerbation Acute, new onset, [...] evaluated by cardiology earlier this morning at [facility]. Repeat troponin in the am. [...] no longer feels safe in that environment. dope worker consulted for discharge planning. 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 History of Present Illness Patient is a 54-year-old male, who follows with Girma Correa CNP with a past medical history significant for COPD, asthma, CHF with cardiomyopathy, hypertension, atrial fibrillation, type 2 diabetes, and KOFFI, presented to [facility] emergency department with the chief complaint of [...] that was supposed to be removed at [facility] today. Patient denies any fever, chills, [...] home and would like to go to [facility]. He was just admitted to [facility] with atrial fibrillation RVR and bacteremia. [...] Electronic Signature: DELORES MURO DO 12/11/2024 02:07:48 Assessment/Plan 1. COPD exacerbation Acute, [...] evaluated by cardiology earlier this morning at [facility]. Repeat troponin in the am. [...] no longer feels safe in that environment. dope worker consulted for discharge planning. DVT prophylaxis [...] ANGEL GARCES DO on 12/11/2024 03:06 PM [facility]07-16-2025 Note* Exam Date Time Procedure Performing Provider Status 12/11/24 2:[address] Angiography Chest w/ Contrast MICK WAGNER MD; Auth (Verified) [id number] ORIGINAL EXAMINATION: CTA OF THE CHEST 12/11/2024 [...] Sign Date: 12/11/2024 3:29:36 AM Ordering Provider: [facility]07-16-2025 Note* Exam Date Time Procedure Performing Provider Status 12/11/24 12:31 AM XR Chest 1 View MICK LEGGETT MD; (Verified) [id number] ORIGINAL EXAMINATION: ONE XRAY VIEW OF THE [...] 12/11/2024 1:19:48 AM Ordering Provider: DELORES MURO [place] [id number] Note* Exam Date Time Procedure Performing Provider Status 12/10/24 11:55 PM EKG [ED AOH] - CV DELORES MURO DO; Auth (Verified) ECG Final Report Sinus rhythm Left axis deviation Abnormal R-wave progression, late transition Compared to ECG at 11/24/2024 15:28:54 Electronic Signature: DELORES MURO DO 12/11/2024 02:07:48 [facility]07-09-2025 Hospital Discharge instructions Patient Education 12/04/2024 [...] splint gets wet, dry it with a physical education department chair on a cool setting. You may use bzbt-dhg-nspuvdf pain medicine to control pain, unless another [...] cast or splint develops cracks or breaks [id number] The [employer] [place] [address]. All rights reserved. This information is not intended as a substitute for professional medical care. Always follow yourhealthcare professional's instructions. Follow Up Care 12/04/2024 16:40:24 With:GIRMA CORREA Address: [address] [place] [phone] When:2-4 days [facility] 07-09-2025 Note Discharge Instructions Thank you for allowing [facility] to assist you with your healthcare needs. The following is importantdischarge information regarding your hospital visit. Diagnosis from Today's Visit Visit for wound check What to Do Next Instructions from Your Care Team No qualifying data available. Post Acute Orders No qualifying data available. You Need to Schedule the Following Appointments Follow Up with GIRMA CORREA When:Within 2-4 days Where:[place] [address] [phone] Allergies Statins myalgia Medications Please ask your primary doctor or pharmacist before taking any other medication not listed, including over the counter drugs, herbal medications, vitamins and or supplements as they may interact withur home medications. What How Much When Why [...] splint gets wet, dry it with a physical education department chair on a cool setting. You may use wxlk-uok-fgrffon pain medicine to control pain, unless another [...] cast or splint develops cracks or breaks [id number] The [employer] [place] [address]. All rights reserved. This information is not intended as a substitute for professional medical care. Always follow yourhealthcare professional's instructions. Additional Information VACCINATE! IT SAVES LIVES! Members of the community who have not yet received the COVID-19 vaccine and would like to receive it can visit one of [facility] vaccine clinics. There are many vaccine clinic locations within the [facility]. For locations and available times, please visit www.gettheshot.coronavirus.[place].gov/. It is important to note that some COVID mobile vaccine clinics are held outdoors and may be canceled in rainy or stormy conditions. To learn more about pediatric vaccinations (ages 5-11), we invite you to visit the [facility] webpage. https://www.[facility].org/pages/6095-Qapmc-Hcjrgmilloy-Tsjlqiwjdk-Dohnn-Slc stions.htmlTo learn more about the COVID-19 vaccine, we invite you to visit the CDC website for a list of frequently asked questions. https://www.cdc.gov/coronavirus/2019-ncov/vaccines/faq.html [facility] Patient Portal Access Instructions: Stay connected with your healthcare team and access your personal medical information anytime with the [facility] Patient Portal. If you would like a full copy of your medical records please contact the [facility] Medical Records Department Monday through Monday between 8a.m. and 4:30p.m. Please follow the directions below to access the portal: 1.Access the email account you provided upon registration to the [facility].2.Look for an invitation email from [facility].3.Open the email and access the invitation link: Accept Invitation to [facility]4.Fill in the required orr to create your account. Sign into [email or web address] with your username and password that you [...] you will allow to register on the [facility] Patient Portal for access to your information. You can also access the [facility] Patient Portal on the [employer]. Simply click on "Health Records" under "ImageVision" and then click on the [facility] logo. HOW TO SAFELY DISPOSE OF PRESCRIPTION [...] Call your local pharmacy or go to http://Wagaduu.[employer]/9S4Ix2v to find one close to you.3.Make use of household items: Use cat litter or old coffee grounds to dispose medications if other options arenot available. Mix your drugs with these household products, seal them in an airtight container andthrow it into the garbage. Call [facility]: [phone] to be sure your drugs can be [...] that I should contact my d octor. 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 Signature: Date/Time: Relationship to Patient: Witness Name/Signature: Date/Time: [facility]07-06-2025 Note. MICRO - Microbiology PROCEDURE: Blood Culture [...] Locations *1: This test was performed at: [address], [facility]- , [facility] [id number] Note. MICRO - Microbiology PROCEDURE: Blood Culture [...] Locations *1: This test was performed at: [address], [facility]- , [facility] [id number] Note. MICRO - Microbiology PROCEDURE: Blood Culture [...] Locations *1: This test was performed at: [address], [place], [address]- , [facility] [id number] Cardiology Progress note Date of Service 11/28/2024 Subjective No acute complaints today. Pt tolerated NELDA well. Objective Vitals and Measurements T: 36 C (Skin) TMIN: 36 C (Skin) TMAX: 37.1 C (Oral) HR: 68 (Monitored) RR: 18 BP: 109/55 SpO2: 94% WT: 132.4 kg Intake and Output 7AM Yesterday [...] MIKEL MCDANIEL DO on 11/28/2024 11:46 AM [id number] Hospital Discharge instructions Patient Education 11/28/2024 15:26:42 Atrial Fibrillation, Zjgn-gl-Lxwf Atrial Fibrillation Atrial fibrillation is a type [...] Follow these instructions at home: Medicines Take tdgi-jff-hgxsvoh and prescription medicines only as told by [...] You have any signs of a stroke. "BE FAST" is an easy way to remember the [...] 02/21/2009 Document Revised: 07/19/2018 Document Reviewed: 07/06/2018 ScoreStream Patient Education 2020 ScoreStream Inc. Follow Up Care 11/24/2024 07:01:00 With:NANI QUINTANA DO, Orthopedic Address: [address], [place] [address]- [phone] When:12/06/2024 09:00:00 Comments:Please Dr. Quintana's office to schedule appointment for follow up to discuss and schedule possible ex-fix removal. With:[facility] COR[facility] Address: [address] [facility] [place] [address]- [phone] When:1-2 days Comments:Please call the office to schedule a hospital follow up appointment. [facility] 07-03-2025 Note Discharge Instructions Thank you [...] GIRMA CORREA When:Within 1-2 days Where:[address] [facility] [place] [address]- [phone] Additional Information: Please call the office to schedule a hospital follow up appointment. Follow Up with NANI QUINTANA DO, Orthopedic When:12/06/2024 09:00 AM EDT Where:[address], [place] [address] [phone] Additional Information: Please Dr. Quintana's office to [...] a day Duration: 14 Days Pickup at [facility]/pharmacy #[id number] Changed potassium chloride (Potassium Chloride (Eqv-K-Tab) 20 [...] by mouth Daily at bedtime Pharmacy Information [facility]/pharmacy #[id number]: [address], [place] [phone] Please take this list to your next [...] Follow these instructions at home: Medicines Take gpez-ydh-ncrnyqv and prescription medicines only as told by [...] You have any signs of a stroke. "BE FAST" is an easy way to remember the [...] 02/21/2009 Document Revised: 07/19/2018 Document Reviewed: 07/06/2018 ScoreStream Patient Education 2020 Touch-Writer. Additional Information VACCINATE! IT SAVES LIVES! Members of the community who have not yet received the COVID-19 vaccine and would like to receive it can visit one of [facility] vaccine clinics. There are many vaccine clinic locations within the [facility]. For locations and available times, please visit https://gettheshot.coronavirus.[place].gov/. It is important to note that some COVID mobile vaccine clinics are held outdoors and may be canceled in rainy or stormy conditions. To learn more about pediatric vaccinations (ages 5-11), we invite you to visit the [facility] webpage. https://www.[facility].org/pages/5610-Twdde-Ildilssoloo-Fatstusiyg-Rktri-Pnk stions.htmlTo learn more about the COVID-19 vaccine, we invite you to visit the CDC website for a list of frequently asked questions.https://www.cdc.gov/coronavirus/2019-ncov/vaccines/faq.html [facility] Patient Portal Access Instructions: Stay connected with your healthcare team and access your personal medical information anytime with the [facility] Patient Portal. Please follow the directions below to create your [facility] account: 1.Access the email account you provided upon registration to the hospital/physician office.2.Look for an invitation email from [facility].3.Open the email and access the invitation link: AcceptInvitation to [facility].4.Fill in the required orr to create your account. To access your account, visit [email or web address]. Click the blue button labeled "Access Patient Portal" and then log in with the username [...] who you will allowto register on the [facility] for access to your information. You can also access the [facility] Patient Portal on the [facility] frida. Simply click on "Patient Portal" and then log into your account. If you would like to receive a full copy of your medical records, please contact the [facility] Medical Records Department by calling [phone], Monday through Monday between 8 a.m. and [...] Call your local pharmacy or go to [email or web address] to find one close to you.3.Make use of household items: Use cat litter or old coffee grounds to dispose medications if other options arenot available. Mix your drugs with these household products, seal them in an airtight container andthrow it into the garbage. Call [facility]: [phone] to be sure your drugs can be [...] COPY. Signatures Patient Education Materials Atrial Fibrillation, Nryd-sn-Wcxe Medication Leaflets My discharge plan and instructions have been reviewed and explained to me and I,CARLOS ALBERTO KELLEY JR understand my current condition and have read and understand these discharge instructions. I have received a written copy of the plan/instructions. If I have questions, I am aware that I should contact my d octor. 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 Signature: Date/Time: Relationship to Patient: Witness Name/Signature: Date/Time: [facility]zkqywry69-95-7556 Discharge summary Date of Service 11/28/2024 Discharge [...] external fixator in place. Patient presented to [facility] as a transfer from [facility] on 11/24/2024 with complaints of palpitations and found to be in atrial fibrillation with RVR. Patient was admitted with cardiology consultation. Patient was also noted to have hypomagnesemia and this was repleted. Patient did convert to sinus rhythm.Patient was continued on home Tikosyn as well as beta-kp anticoagulation. Patient was noted tohave 2/2 blood cultures positive for gram-positive cocci and eventually identified as MSSA. Patient's repeat cultures remain negative at this time. Patient was placed on IV cefazolin and possible source was his external fixator. NELDA was performed with no evidence of endocarditis. Plan to complete 2weeks of Keflex as per ID recommendations. Patient [...] GIRMA CORREA When:Within 1-2 days Where:[address] [place] [address]- [phone] Additional Information: Please call the office to [...] MAXIME COLLINS DO on 11/28/2024 01:25 PM [facility] HospitalXkwelcyl37-15-5802 Infectious disease Progress note Date of Service [...] 68 (Monitored) RR: 18 BP: 109/55 SpO2: 94% WT: 132.4 kg Intake and Output 7AM Yesterday [...] with orthopedics presents to the hospital from [facility] on 11/24/2024 as a transfer for shortness [...] by ORI TOMLIN on 11/28/2024 12:50 PM [facility] HospitalOcyaegzx25-18-4074 Cardiology Progress note Date of Service 11/28/2024 [...] Result Date: November 25, 2024 Verified By: BAEU COLEY MD CLINICAL STATEMENT: IMPRESSION: No acute [...] MIKEL MCDANIEL DO on 11/28/2024 11:46 AM [facility] HospitalRaisisuz51-00-8829 Note* Exam Date Time Procedure Performing Provider Status 11/28/24 11:04 AM Transesophageal Echo cardiogram - CV FREDDY HARTLEY MD; Auth (Verified) [facility] HospitalJheszzed51-08-6684 Anesthesiology Consult note Patient: CRALOS ALBERTO KELLEY JR Age: 54 years Sex: [...] list: Medical Asthma exacerbation / SNOMED CT 5886451050 / Confirmed COPD exacerbation / SNOMED CT 9361511622 / Confirmed Atopic dermatitis / SNOMED CT 91773301 / Confirmed Atypical chest pain / SNOMED CT 868487163 / Confirmed Morbid obesity with BMI of 40.0-44.9, adult / SNOMED CT 4000485646 / Confirmed Bronchitis / SNOMED CT 77543135 / Confirmed Cardiomyopathy / SNOMED CT 439502776 / Confirmed CHF with cardiomyopathy / SNOMED CT 93899236 / Confirmed Cough / SNOMED CT 80468908 / Confirmed Dental abscess / SNOMED CT 374302705 / Confirmed Depression / SNOMED CT 10943073 / Confirmed Dyspnea / SNOMED CT 386185276 / Confirmed Generalized anxiety disorder / SNOMED CT 49884348 / Confirmed Hypertension associated with type 2 diabetes mellitus / SNOMED CT 7215416541 / Confirmed Insomnia / SNOMED CT 290645539 / Confirmed LVH (left ventricular hypertrophy) / SNOMED CT 27896206 / Confirmed Moderate asthma / SNOMED CT 9783173877 / Confirmed Near syncope / SNOMED CT 8551006571 / Confirmed Chewing tobacco nicotine dependence / SNOMED CT 93688508 / Confirmed KOFFI (obstructive sleep apnea) / SNOMED CT 290796109 / Confirmed Right knee pain / SNOMED CT 4259835608 / Confirmed Paroxysmal atrial fibrillation / SNOMED CT 306500723 / Confirmed Screening for ischemic heart disease / SNOMED CT 057062803 / Confirmed Screening for colon cancer / SNOMED CT 730246342 / Confirmed Statin intolerance / SNOMED CT 4812429779 / Confirmed Tachyarrhythmia / SNOMED CT 81405195 / Confirmed Type 2 diabetes mellitus with hemoglobin A1c goal of less than 7.0% / SNOMED CT 617361926 / Confirmed Type 2 diabetes mellitus with hyperlipidemia / SNOMED CT 507545174 / Confirmed, Active Problems (32) Asthma exacerbation [...] Histories Past Medical History: Resolved Morbid obesity (686616235): Resolved. Diabetes mellitus (745752228): Resolved. Hypertension (0760661821): Resolved. BMI 45.0-49.9, adult (0865735910): Resolved. Anxiety (73721387): Resolved. Prediabetes (3174651587): Resolved. Obstructive sleep apnea (934770940): Resolved. Right flank pain (693027919): Resolved. Hyperlipidemia (41085662): Resolved. Mass of arm (945259132): Resolved. Family History: Cancer Father Heart disease Mother Grandparent Stroke Father Procedure history: Excision (553351496) on 03/25/2024 at 53 Years. 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 Cardioversion (979135442) on 12/23/2022 at 52 Years. Echocardiogram (1400800594) on 11/11/2022 at 52 Years. Comments: 03/20/2023 [...] atrial pressure is 15 mm Hg Elbow (3308561771). Comments: 07/11/2022 8:26 SHAHEEN Nunez - right [...] Oral36.6 DegC (NOV 28 06:51) Heart Rate Vchluj26 bpm (NOV 28 09:06) LKS134 mmHg (NOV 28 06:51) DBP63 mmHg (NOV [...] range of motion. Integumentary: Intact, Warm, Dry, [place]. Neurologic: Alert, Oriented. Review / Management Results [...] 26)9.1(NOV 25)9.2(NOV 24) . Assessment and Plan [place] [employer] Anesthesiologists (ASA) physical status classification: [...] ROJELIO NORIEGA DO on 11/28/2024 09:55 AM [facility] HospitalFtteeumk80-69-3069 Note. MICRO - Microbiology PROCEDURE: Blood Culture [...] Locations *1: This test was performed at: [facility], [address] [place] [address], [address] , [facility]07-02-2025 Note Date of Service 11/27/2024 Chief Complaint Palpitations Subjective 54-year-old male with a past medical history of COPD, tobacco abuse, A-fib, type 2 diabetes, recentankle fracture with external fixator in place. Presented to [facility] as a transfer from [facility] on 11/24/2024 with complaints of palpitations, found [...] by MELISSA ORTEGA on 11/27/2024 12:32 PM [facility] HospitalYxzzvwiu45-22-6927 Infectious disease Progress note Date of Service [...] with Spectrum presents to the hospital from [facility] on 11/24/2024 as a transfer for shortness [...] by ORI TOMLIN on 11/27/2024 02:19 PM [facility] HospitalOriibrbc27-95-8231 Note. MICRO - Microbiology PROCEDURE: Blood Culture (bacterial) [O1 *1] SOURCE: Blood BODY SITE: COLLECTED DATE/TIME: 11/24/2024 05:08 EDT RECEIVED DATE/TIME: 11/24/2024 12:36 EDT START DATE/TIME: 11/24/2024 12:37 EDT FREE TEXT SOURCE: FINAL REPORTS Final Report [] Verified Date/Time/Personnel: 11/27/2024 09:17 EDT Staphylococcus aureus Isolated from aerobe and anaerobe bottles. Refer to previous culture for susceptibility. [id number] PRELIMINARY REPORTS Preliminary Report [] Verified Date/Time/Personnel: [...] Locations *1: This test was performed at: [address], [facility] , [facility]07-02-2025 Note. MICRO - Microbiology PROCEDURE: Blood Culture [...] Locations *1: This test was performed at: [address], [facility] , [facility]07-01-2025 Orthopaedic surgery Consult note Date of Service 11/25/2024 Reason for Consultation Pin site care History of Present Illness Chucky is a 54-year-old male who is admitted to [facility] for A-fib with RVR. Patient had recent [...] obturator, femoral, LCN, DPN, SPN, sural, saphenous, M/COMPRESSOR TECHNICIAN - Calf soft and non-tender Left Lower Extremity - No tenderness palpation about left ankle. Skin intact. - Motor: Hip flexion/extension, quadriceps, hamstrings, gastruc/soleus, EHL/FHL intact. - Foot warm and perfused. BCR - Sensation grossly intact L2-S2: obturator, femoral, LCN, DPN, SPN, sural, saphenous, M/COMPRESSOR TECHNICIAN - Calf soft and non-tender Lab Results [...] SUZE MISHRA DO on 11/26/2024 07:11 AM [facility] HospitalXdlorwci16-16-1664 Cardiology Progress note Date of Service 11/26/2024 [...] CHANDRAKANT SUAREZ DO on 11/26/2024 03:37 PM [facility] HospitalRpdtejww80-22-2478 Cardiology Progress note Date of Service 11/26/2024 [...] CHANDRAKANT SUAREZ DO on 11/26/2024 03:37 PM [facility] HospitalEtnghxag40-98-4621 Note Date of Service 11/26/2024 Chief Complaint Weakness Subjective 54-year-old male with a past medical history of COPD, tobacco abuse, A-fib, type 2 diabetes, recentankle fracture with external fixator in place. Presented to [facility] as a transfer from [facility] on 11/24/2024 with complaints of palpitations, found [...] by MELISSA ORTEGA on 11/26/2024 12:18 PM [facility] HospitalRyoqvzzf24-46-3172 Infectious disease Progress note Date of Service [...] repair tomorrow at outside facility presents from [facility] on 11/24/2024 is transferred for shortness of [...] by ORI TOMLIN on 11/26/2024 02:31 PM [facility] HospitalLpimmwpr92-18-7909 Infectious disease Consult note Date of Service 11/25/2024 Reason for Consultation Staph aureus bacteremia Referring Physician Dr. Juarez History of Present Illness Patient is a 54-year-old male with past medical history of COPD, tobacco abuse, atrial fibrillation, type 2 diabetes, recent right ankle fracture with external fixator with scheduled operative repairtomorrow at outside facility presents from [facility] on 11/24/2024 as a transfer for shortness [...] repair tomorrow at outside facility presents from [facility] on 11/24/2024 as a transfer for shortness [...] by ORI TOMLIN on 11/25/2024 04:42 PM [facility] HospitalOnouwces71-42-7581 Note* Exam Date Time Procedure Performing Provider Status 11/25/24 6:03 PM XR Ankle Minimum 3 Views Left KAILEY COLEY MD; Auth (Verified) [id number] ORIGINAL EXAMINATION: THREE XRAY VIEWS OF THE [...] 11/25/2024 7:46:46 PM Ordering Provider: SUZE MISHRA [facility] HospitalIjkfwvrc47-71-9479 Note* Exam Date Time Procedure Performing Provider Status 11/25/24 6:03 PM XR Tibia/Fibula 2 Views Right KAILEY COLEY MD; Auth (Verified) [id number] ORIGINAL EXAMINATION: TWO XRAY VIEWS OF THE [...] 11/25/2024 7:42:39 PM Ordering Provider: ORI TOMLIN [facility] HospitalKjnwnmoy85-22-6488 Note* Exam Date Time Procedure Performing Provider Status 11/25/24 6:01 PM XR Ankle Minimum 3 Views Right TRACE ROUSE MD; Auth (Verified) [id number] ORIGINAL EXAMINATION: THREE XRAY VIEWS OF THE [...] 11/25/2024 7:39:01 PM Ordering Provider: SUZE MISHRA [facility] HospitalFrlmmova24-86-6759 Orthopaedic surgery Consult note Date of Service 11/25/2024 Reason for Consultation Pin site care History of Present Illness Chucky is a 54-year-old male who is admitted to [facility] for A-fib with RVR. Patient had recent [...] obturator, femoral, LCN, DPN, SPN, sural, saphenous, M/COMPRESSOR TECHNICIAN - Calf soft and non-tender Left Lower Extremity - No tenderness palpation about left ankle. Skin intact. - Motor: Hip flexion/extension, quadriceps, hamstrings, gastruc/soleus, EHL/FHL intact. - Foot warm and perfused. BCR - Sensation grossly intact L2-S2: obturator, femoral, LCN, DPN, SPN, sural, saphenous, M/COMPRESSOR TECHNICIAN - Calf soft and non-tender Lab Results [...] SUZE MISHRA DO on 11/26/2024 07:11 AM [facility] HospitalKggmcfkm20-86-1092 Cardiology Progress note Date of Service 11/25/2024 [...] CHANDRAKANT SUAREZ DO on 11/25/2024 02:06 PM [facility] HospitalQzdyypkx27-73-9679 Note Date of Service 11/25/2024 Chief Complaint Right lower extremity pain Subjective 54-year-old male with a past medical history of COPD, tobacco abuse, A-fib, type 2 diabetes, recentankle fracture with external fixator in place. Presented to [facility] as a transfer from [facility] on 11/24/2024 with complaints of palpitations, found [...] of Discharge 24 hours Anticipated DC Disposition [facility] Digitally Signed by MELISSA ORTEGA on 11/25/2024 12:35 PM Digitally Signed by MELISSA ORTEGA on 11/25/2024 01:00 PM [facility] HospitalDxvspryn28-73-0661 Infectious disease Consult note Date of Service 11/25/2024 Reason for Consultation Staph aureus bacteremia Referring Physician Dr. Juarez History of Present Illness Patient is a 54-year-old male with past medical history of COPD, tobacco abuse, atrial fibrillation, type 2 diabetes, recent right ankle fracture with external fixator with scheduled operative repairtomorrow at outside facility presents from [facility] on 11/24/2024 as a transfer for shortness [...] repair tomorrow at outside facility presents from [facility] on 11/24/2024 as a transfer for shortness [...] by ORI TOMLIN on 11/25/2024 04:42 PM [facility] HospitalBipqrokn88-42-5016 Cardiology Progress note Date of Service 11/25/2024 [...] CHANDRAKANT SUAREZ DO on 11/25/2024 02:06 PM [facility] HospitalPflyiawq96-47-9410 Note* Exam Date Time Procedure Performing Provider Status 6/29/25 3:28 PM EKG (ED) - CV JORDON ARCOS MD; Auth (Verified) ECG Final Report SINUS RHYTHM LAD, CONSIDER LEFT ANTERIOR FASCICULAR BLOCK LOW VOLTAGE, PRECORDIAL LEADS CONSIDER ANTERIOR INFARCT Electronic Signature: JORDON ARCOS MD 11/25/2024 09:46:09 [facility] HospitalVwpwkohj23-17-1962 Cardiology Consult note Reason for Consultation Atrial [...] BENNETT SMITH MD on 11/24/2024 03:05 PM [facility] HospitalRotuqifu67-17-6164 Note* Exam Date Time Procedure Performing Provider Status 11/24/24 2:00 PM XR Chest 1 View MELISSA SANTOS MD; Dixie h (Verified) [id number] ORIGINAL EXAMINATION: ONE XRAY VIEW OF THE [...] 11/24/2024 2:03:25 PM Ordering Provider: KARLENE BARCENAS [facility] HospitalHappxxpw57-95-3614 Evaluation + Plan noteExtracted from: Title:History and [...] Metabolic Panel 08/27/24 * N-Terminal proBNP 08/27/24 [facility] 06-29-2025 History and physical note Date of Service November 24, 2024 Chief Complaint Palpitations, shortness of breath History of Present Illness This is a 54-year-old male with a past medical history consistent with COPD, tobacco abuse, atrial fibrillation, T2DM, recent ankle fracture with scheduled operative repair tomorrow at an outside facility right presents from [facility] as a transfer for palpitations in the [...] Patient was given Cardizem bolus in the [facility] ED, no further therapy given due to BP drop. On exam, patient states that his work of breathing is improved. Was placed on 2 L nasal cannula in setting of A-fib with RVR. Denies chest pain, palpitations at this time. Had report of visual disturbance, hallucinations. States this happened once while in [place]. Denies any other new or acute complaints. [...] KARLENE BARCENAS DO on 11/24/2024 01:02 PM [facility] HospitalPyeootij80-03-1580 Note* Exam Date Time Procedure Performing Provider Status 11/24/24 5:[address] Angiography Chest w/ Contrast DARNELL MOLINA MD; Auth (Verified) [id number] ORIGINAL EXAMINATION: CTA OF THE CHEST 11/24/2024 [...] 11/24/2024 6:01:11 AM Ordering Provider: CIRILO PATEL [place] [address]-29-2025 Note* Exam Date Time Procedure Performing Provider Status 11/24/24 5:[address] Head or Brain w/o Contrast DARNELL MOLINA MD; Auth (Verified) [id number] ORIGINAL EXAMINATION: CT OF THE HEAD WITHOUT [...] 11/24/2024 5:55:14 AM Ordering Provider: CIRILO PATEL [facility]06-29-2025 Note* Exam Date Time Procedure Performing Provider Status 11/24/24 4:05 AM EKG [ED AOH] - CIRILO ROY DO ; Auth (Verified) ECG Final Report Atrial fibrillation Markedly posterior QRS axis Anteroseptal infarct, old Minimal ST depression, lateral leads Baseline wander in lead(s) II,aVR Compared to ECG at 10/16/2024 22:24:26 ABNORMAL ECG Electronic Signature: CIRILO PATEL DO 11/24/2024 04:10:26 [facility]05-28-2025 Hospital Discharge instructions Patient Education 10/23/2024 [...] your health care provider approves. Standard walker 1.supervisor bridges and buildings your walker. Do not slide your standard [...] glide well over carpet, consider cutting an "X" into two tennis balls and placing the [...] 05/15/2006 Document Revised: 04/10/2019 Document Reviewed: 04/10/2019 [employer] Patient Education 2020 [employer] 10/23/2024 17:07:24 How to Care for [...] with a waterproof covering. General instructions Take urzq-jvf-rjxpwst and prescription medicines only as told by [...] Document Reviewed: 07/15/2019 Elsevier Patient Education 2020 [employer]. Follow Up Care 10/16/2024 16:12:44 With:[facility], skilled, Address:Unknown When:1-2 days With:GIRMA CORREA Address[address] [place] [phone] Business (1) When:1-2 days With:NANI QUINTANA DO, Orthopedic Address: [address] [facility], [place] [address]- [phone] When:3-7 days Comments:Please call office SARA to confirm/verify follow up appointment. [facility] 05-28-2025 Note Discharge Instructions Thank you [...] Up 11/08/2024 02:30 PM EDT EDY WEBER [facility] Edy CV Confirmed PC OV 11/12/2024 03:30 PM EDT GIRMA CORREA [facility] Confirmed Follow Up Appointments Follow Up with [facility], [facility], When:Within 1-2 days Follow Up with GIRMA CORREA When:Within 1-2 days Where:[address] [place] [address]- [phone] Business (1) Follow Up with NANI QUINTANA DO, Orthopedic When:Within 3-7 days Where:[address] [facility], [place] [address] [phone] Additional Information: Please call office SARA to [...] Post-op pain Duration: 7 Days Pickup at [facility]/pharmacy #[id number] Unchanged albuterol (albuterol 2.5 mg/ 3 mL [...] by mouth Daily at bedtime Pharmacy Information [id number]: [address], [place] [id number] [phone] Please take this list to your next [...] may report side effects to FDA at [phone]. What other drugs will affect acetaminophen and [...] affect acetaminophen and oxycodone, including prescription and azrr-jua-lqdonhq medicines, vitamins, and herbal products. Not all [...] to ensure that the information provided by [employer]') is accurate, up-to-date, and complete, but no guarantee is made to that effect. Drug information contained herein may be time sensitive. [employer] information has been compiled for use by healthcare practitioners and consumers in the [place] and therefore [employer] does not warrant that uses outside of the [place] are appropriate, unless specifically indicated otherwise. [employer]'s drug information does not endorse drugs, diagnose patients or recommend therapy. [employer] drug information isan informational resource designed to [...] effective or appropriate for any given patient. [facility] does not assume any responsibility for any aspect of healthcare administered with the aid of information [facility] provides. The information contained herein is not intended to cover all possible uses, directions, precautions, warnings, drug interactions, allergic reactions, or adverse effects. If you have questions about the drugs you are taking, check with your doctor, nurse or pharmacist. Copyright 7869-6890 [facility] HospitalPixer TechnologyBiometryCloud. Version: 22.. Revision Date: 12/29/2022. Education Materials [...] health care provider approves. Standard walker 1. supervisor bridges and buildings your walker. Do not slide your standard [...] glide well over carpet, consider cutting an "X" into two tennis balls and placing the [...] 05/15/2006 Document Revised: 04/10/2019 Document Reviewed: 04/10/2019 [employer]Stream Patient Education 2020 [employer]. How to Care for an External [...] with a waterproof covering. General instructions Take jwxk-nrm-qjpikei and prescription medicines only as told by [...] 01/25/2012 Document Revised: 07/12/2019 Document Reviewed: 07/15/2019 ElseFinAnalytica Patient Education 2020 [employer]. Additional Information VACCINATE! IT SAVES LIVES! Members of the community who have not yet received the COVID-19 vaccine and would like to receive it can visit one of [facility] vaccine clinics. There are many vaccine clinic locations within the [facility]. For locations and available times, please visit https://gettheshot.coronavirus.[place].gov/. It is important to note that some COVID mobile vaccine clinics are held outdoors and may be canceled in rainy or stormy conditions. To learn more about pediatric vaccinations (ages 5-11), we invite you to visit the [facility] webpage. https://www.[employer]ron[employer] Technologiess.org/pages/8565-Yxvgk-Zbrzcamkkto-Hfrbqvejpq-[place]ibia-Pva stions.htmlTo learn more about the COVID-19 vaccine, we invite you to visit the CDC website for a list of frequently asked questions.https://www.cdc.gov/coronavirus/2019-ncov/vaccines/faq.html [facility] Patient Portal Access Instructions: Stay connected with your healthcare team and access your personal medical information anytime with the [facility] Patient Portal. Please follow the directions below to create your [facility] account: 1.Access the email account you provided upon registration to the hospital/physician office.2.Look for an invitation email from [facility].3.Open the email and access the invitation link: AcceptInvitation to [facility].4.Fill in the required orr to create your account. To access your account, visit [email or web address]. Click the blue button labeled "Access Patient Portal" and then log in with the username and password that you created in the steps above. You will be able to view your test results, lab results, a summary of your visits, upcoming appointments and more. There is also a convenient messaging option where you can send secure messages to your p [employer]Pace[employer]. In addition, you will have the ability to download any documents or summaries to your computer and/or send the information securely to a physician. Remember that your healthcare information is confidential, so carefully consider who you will allowto register on the [facility] Patient Portal for access to your information. You can also access the [facility] Patient Portal on the [facility] frida. Simply click on "Patient Portal" and then log into your account. If you would like to receive a full copy of your medical records, please contact the [facility] Medical Records Department by calling [phone], Monday through Monday between 8 a.m. and [...] Call your local pharmacy or go to [email or web address] to find one close to you.3.Make use of household items: Use cat litter or old coffee grounds to dispose medications if other options arenot available. Mix your drugs with these household products, seal them in an airtight container andthrow it into the garbage. Call [facility]: [phone] to be sure your drugs can be [...] aware that I should contact my doctor. 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 Signature: Date/Time: Relationship to Patient: Witness Name/Signature: Date/Time: [facility] HospitalIrjqweea60-48-1609 Note Discharge Instructions Thank you for allowing [...] Up 11/08/2024 02:30 PM EDT EDY WEBER [facility] Confirmed OV 11/12/2024 03:30 PM EDT GIRMA CORREA APRN-SHAWN [facility] Confirmed Follow Up Appointments Follow Up with [facility], skilled, When:Within 1-2 days Follow Up with GIRMA CORREA When:Within 1-2 days Where:[address] [facility] [place] [address] [phone] Business (1) Follow Up with NANI QUINTANA DO, Orthopedic When:Within 3-7 days Where:[address] [facility], [place] [address]- [phone] Additional Information: Please call office SARA to [...] Post-op pain Duration: 7 Days Pickup at [facility]/pharmacy #[id number] Unchanged albuterol (albuterol 2.5 mg/ 3 mL [...] by mouth Daily at bedtime Pharmacy Information [facility]/pharmacy #[id number]: [address], [place] [id number] [phone] Please take this list to your next [...] to receive it can visit one of [facility] vaccine clinics. There are many vaccine clinic locations within the [facility]. For locations and available times, please visit [email or web address].[place].gov/. It is important to note that some COVID mobile vaccine clinics are held outdoors and may be canceled in rainy or stormy conditions. To learn more about pediatric vaccinations (ages 5-11), we invite you to visit the [facility] webpage. [email or web address]/[email or web address]-[email or web address]-Tisuoykskp-Rouxp-[email or web address] stions.htmlTo learn more about the COVID-19 vaccine, we invite you to visit the CDC website for a list of frequently asked questions.https://www.cdc.gov/coronavirus/2019-ncov/vaccines/faq.html [facility] Patient Portal Access Instructions: Stay connected with your healthcare team and access your personal medical information anytime with the [facility] Patient Portal. Please follow the directions below to create your [facility] account: 1.Access the email account you provided upon registration to the hospital/physician office.2.Look for an invitation email from [facility].3.Open the email and access the invitation link: AcceptInvitation to [facility].4.Fill in the required orr to create your account. To access your account, visit [email or web address]. Click the blue button labeled "Access Patient Portal" and then log in with the username [...] who you will allowto register on the [facility] Patient Portal for access to your information. You can also access the [facility] Patient Portal on the [facility] [facility] [place]. Simply click on "Patient Portal" and then log into your account. If you would like to receive a full copy of your medical records, please contact the [facility] Medical Records Department by calling [phone], Monday through Monday between 8 a.m. and [...] Call your local pharmacy or go to http://bit.ly/3I5Ly9o to find one close to you.3.Make use of household items: Use cat litter or old coffee grounds to dispose medications if other options arenot available. Mix your drugs with these household products, seal them in an airtight container andthrow it into the garbage. Call [facility]: [phone] to be sure your drugs can be [...] aware that I should contact my doctor. 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 Signature: Date/Time: Relationship to Patient: Witness Name/Signature: Date/Time: [facility] HospitalTodzqeoa69-09-0338 Orthopaedic surgery Progress note Date of Service [...] obturator, femoral, LCN, DPN, SPN, sural, saphenous, M/COMPRESSOR TECHNICIAN - Calf soft and non-tender Left Lower Extremity - No pain to left lower extremity. Walking boot in place when patient is ambulating - Motor: Hip flexion/extension, quadriceps, hamstrings, gastruc/soleus, EHL/FHL intact. - DP and PT pulse 2+. Foot warm and perfused. BCR - Sensation grossly intact L2-S2: obturator, femoral, LCN, DPN, SPN, sural, saphenous, M/COMPRESSOR TECHNICIAN - Calf soft and non-tender Weight Dosing [...] SUZE MISHRA DO on 10/23/2024 07:03 AM [facility] HospitalPdzcoicf68-42-2296 Orthopaedic surgery Progress note Date of Service [...] obturator, femoral, LCN, DPN, SPN, sural, saphenous, M/COMPRESSOR TECHNICIAN - Calf soft and non-tender Left Lower Extremity - No pain to left lower extremity. Walking boot in place when patient is ambulating - Motor: Hip flexion/extension, quadriceps, hamstrings, gastruc/soleus, EHL/FHL intact. - DP and PT pulse 2+. Foot warm and perfused. BCR - Sensation grossly intact L2-S2: obturator, femoral, LCN, DPN, SPN, sural, saphenous, M/COMPRESSOR TECHNICIAN - Calf soft and non-tender Weight Dosing [...] SUZE MISHRA DO on 10/23/2024 07:03 AM [facility] HospitalClxqfyjw39-81-2165 Orthopaedic surgery Progress note Date of Service [...] obturator, femoral, LCN, DPN, SPN, sural, saphenous, M/COMPRESSOR TECHNICIAN - Calf soft and non-tender Left Lower Extremity - No pain to left lower extremity. Walking boot in place when patient is ambulating - Motor: Hip flexion/extension, quadriceps, hamstrings, gastruc/soleus, EHL/FHL intact. - DP and PT pulse 2+. Foot warm and perfused. BCR - Sensation grossly intact L2-S2: obturator, femoral, LCN, DPN, SPN, sural, saphenous, M/COMPRESSOR TECHNICIAN - Calf soft and non-tender Weight Dosing [...] SUZE MISHRA DO on 10/22/2024 05:51 AM [facility] HospitalJebklsyt20-59-3301 Orthopaedic surgery Progress note Date of Service [...] obturator, femoral, LCN, DPN, SPN, sural, saphenous, M/COMPRESSOR TECHNICIAN - Calf soft and non-tender Left Lower Extremity - No pain to left lower extremity. Walking boot in place when patient is ambulating - Motor: Hip flexion/extension, quadriceps, hamstrings, gastruc/soleus, EHL/FHL intact. - DP and PT pulse 2+. Foot warm and perfused. BCR - Sensation grossly intact L2-S2: obturator, femoral, LCN, DPN, SPN, sural, saphenous, M/COMPRESSOR TECHNICIAN - Calf soft and non-tender Weight Dosing [...] SUZE MISHRA DO on 10/22/2024 05:51 AM [facility] HospitalSnpitnrz67-53-2063 Orthopaedic surgery Progress note Date of Service [...] SANDRA GARCIA DO on 10/21/2024 10:00 AM [facility] HospitalLeoxvrmy22-54-3304 Orthopaedic surgery Progress note Date of Service [...] SANDRA GARCIA DO on 10/21/2024 10:00 AM [facility] HospitalMlyxhsfa39-52-9336 Pastoral care Progress note Pastoral Care Note [...] by Sanjay Lucas on 10/18/2024 04:50 PM [facility] HospitalYfowcvie58-24-8505 Note PIN care completed by bedside RN. Ortho approved protocol orders for care daily. Digitally Signed by SHAHEEN Lou on 10/18/2024 01:37 PM [facility] HospitalRhsqsnnd71-90-7796 Note Date of Service 10/18/2024 Chief Complaint [...] by GROVER HOFFMAN on 10/18/2024 01:11 PM [facility] HospitalMbnbrfok28-60-6000 Note* Exam Date Time Procedure Performing Provider Status 10/17/24 1:14 PM XR Fluoro 1-2 Hrs Tech Time KAILEY WAHL DO; Auth (Verified) [id number] ORIGINAL EXAMINATION: FLUORO MD - > 1 HR TECHNIQUE: Total fluoro time is 43.2 seconds. Total exposure is 2.0531 mGy. COMPARISON: CT ankle 10/17/2024, x-ray ankle 10/16/2024. HISTORY: ORDERING SYSTEM PROVIDED HISTORY: Reason for Exam: RIGHT ANKLE FX FINDINGS: Intraoperative fluoroscopic images from external surgical fixation of a distal fibular fracture. IMPRESSION: Intraoperative fluoroscopic images. Please refer to the needle felt making machine operator's report for further information. I have personally reviewed the images of this examination and agree with the resident's findings and interpretation. Interpreted by: Beau Wahl Preliminary Report By: Nadya Hudson Electronically signed By Beau Wahl Dictated Date: 10/17/2024 1:42:02 PM Prelim Date: 10/17/2024 2:15:08 PM Sign Date: 10/17/2024 2:15:08 PM Ordering Provider: NANI QUINTANA [facility] HospitalKzuaupdu91-90-9325 Note Date of Service 10/17/2024 Chief Complaint Medical management Subjective This 54-year-old white male with a past medical history of type 2 diabetes mellitus, hypertension, COPD, HFpEF, anxiety, atrial fibrillation on Xarelto and Tikosyn presented to [facility] aftermechanical fall and subsequent ankle pain. [...] by GROVER HOFFMAN on 10/17/2024 12:52 PM [facility] [id number] Anesthesiology Consult note Patient: CARLOS ALBERTO KELLEY [...] CHANTAL WHEATLEY DO on 10/17/2024 11:13 AM [facility] HospitalXilbkwxr57-45-2341 Note* Exam Date Time Procedure Performing Provider Status 10/17/24 10:[address] Ankle w/o Contrast Right KATHY REVELES MD; Auth (Verified) [id number] ORIGINAL EXAMINATION: CT OF THE RIGHT ANKLE WITHOUT CONTRAST10/17/2024 11:02 am COMPARISON: Radiographs 10/16/2024 TECHNIQUE: CT of the right ankle was performed without the administration of intravenous contrast. Multiplanar reformatted images are provided for review. Automated exposure control, iterative reconstruction, and/or weight based adjustment of the Kathy/kV was utilized to reduce the radiation dose to as low as reasonably achievable. HISTORY: ORDERING SYSTEM PROVIDED HISTORY: Reason for Exam: s/p Right ankle spanning external fixator, multiplanar 10/17. [facility] for right ankle fracture with dislocation. [...] 10/17/2024 1:17:29 PM Ordering Provider: SUZE MISHRA [facility] HospitalUnflrinr04-77-3180 History and physical note Date of Service 10/16/2024 Chief Complaint Pt here from [facility] via squad after a mechanical fall causing a fracture to his right ankle. They splinted it in their ED and sent to [facility] for surgical consult. History of Present Illness Patient is a 54-year-old male who presents to the [facility] emergency department as a transfer from [facility] for his right ankle fracture. Patient [...] Blood, q24h, for 5 day(s), Preferred Lab: [facility], Stop date 10/20/24 22:00:00 EDT [...] Blood, q24h, for 5 day(s), Preferred Lab: [facility], Stop date 10/20/24 22:00:00 EDT Complete Metabolic Panel(CMP), 10/16/24 21:21:00 EDT, URGENT (collect within 2 hrs), Blood, Once, Nurse Collect, Preferred Lab: [facility], Stop date 10/16/24 21:37:00 EDT Consult to Physician, 10/16/24 21:21:00 EDT, HOSPITALISTLARRY (For Consultation Assignment OnlyNO other Orders), Routine, medical clearance, follow medically Diet Order, 10/16/24 21:21:00 EDT, Start Meal: Next meal, Regular, Constant Order, : N/A, : N/A Electrocardiogram(EKG), 10/16/24 21:21:00 EDT, Complete by Nursing Incentive Spirometer, 10/16/24 21:21:00 EDT, [id number] Intake and Output, 10/16/24 21:21:00 EDT, q8h (2p, 10p, 6a) IV Catheter Insertion/Care(Peripheral IV Insertion/Care), 10/16/24 21:21:00 EDT, IV Care: Once, 18 gauge angiocath, if possible Pulse Oximeter - Intermittent, 10/16/24 21:21:00 EDT, AsDirected, PRN order, On admission and as indicated Type and Screen, 10/16/24 21:21:00 EDT, URGENT (collect within 2 hrs), Blood, Once, Nurse Collect, [facility], Stop date 10/16/24 21:21:00 EDT Vital Signs, [...] RIC ARELLANO DO on 10/16/2024 09:43 PM [facility] HospitalOdoyxvtu15-75-0702 Anesthesiology Consult note Patient: CARLOS ALBERTO KELLEY [...] list: Medical Asthma exacerbation / SNOMED CT 8770070342 / Confirmed COPD exacerbation / SNOMED CT 3846051907 / Confirmed Atopic dermatitis / SNOMED CT 78020692 / Confirmed Atypical chest pain / SNOMED CT 594798051 / Confirmed Morbid obesity with BMI of 40.0-44.9, adult / SNOMED CT 9127990764 / Confirmed Bronchitis / SNOMED CT 45200345 / Confirmed Cardiomyopathy / SNOMED CT 748869598 / Confirmed CHF with cardiomyopathy / SNOMED CT 60904750 / Confirmed Cough / SNOMED CT 32776797 / Confirmed Dental abscess / SNOMED CT 894447854 / Confirmed Depression / SNOMED CT 03915831 / Confirmed Dyspnea / SNOMED CT 897222987 / Confirmed Generalized anxiety disorder / SNOMED CT 23212653 / Confirmed Hypertension associated with type 2 diabetes mellitus / SNOMED CT 6568605751 / Confirmed Insomnia / SNOMED CT 879573439 / Confirmed LVH (left ventricular hypertrophy) / SNOMED CT 20594795 / Confirmed Moderate asthma / SNOMED CT 0024345735 / Confirmed Near syncope / SNOMED CT 2248228846 / Confirmed Chewing tobacco nicotine dependence / SNOMED CT 46829889 / Confirmed KOFFI (obstructive sleep apnea) / SNOMED CT 900508925 / Confirmed Right knee pain / SNOMED CT 3309974248 / Confirmed Paroxysmal atrial fibrillation / SNOMED CT 672851361 / Confirmed Screening for ischemic heart disease / SNOMED CT 160950613 / Confirmed Screening for colon cancer / SNOMED CT 283705508 / Confirmed Statin intolerance / SNOMED CT 6964643785 / Confirmed Tachyarrhythmia / SNOMED CT 13623629 / Confirmed Type 2 diabetes mellitus with hemoglobin A1c goal of less than 7.0% / SNOMED CT 567505286 / Confirmed Type 2 diabetes mellitus with hyperlipidemia / SNOMED CT 452517948 / Confirmed, Active Problems (32) Asthma exacerbation [...] Histories Past Medical History: Resolved Morbid obesity (882567051): Resolved. Diabetes mellitus (012988156): Resolved. Hypertension (0866967735): Resolved. BMI 45.0-49.9, adult (7786376062): Resolved. Anxiety (66334109): Resolved. Prediabetes (3929946770): Resolved. Obstructive sleep apnea (536233020): Resolved. Right flank pain (628390138): Resolved. Hyperlipidemia (97245814): Resolved. Mass of arm (136469536): Resolved. Family History: Cancer Father Heart disease Mother Grandparent Stroke Father Procedure history: Excision ([id number]) on 03/25/2024 at 53 Years. Comments: 03/26/2024 7:50 Karol Curry LPN excision of multilobulated lipomatous mass right forearm Echocardiogram ([id number]) on 01/31/2024 at 53 Years. Cardioversion (836940216) on 12/23/2022 at 52 Years. Echocardiogram (9765950572) on 11/11/2022 at 52 Years. Comments: 03/20/2023 [...] right atrial pressure is 15 mm Hg [facility] (7569403956). Comments: 07/11/2022 8:26 CRISTINO - Bharath, SHAHEEN warner - right Social History: Social [...] Temp Oral36.7 DegC (OCTOBER 17:12) Heart Rate Aovjgzdfl46 bpm (OCTOBER 17 00:00) ZDC390 mmHg (OCTOBER 17:12) DBP82 mmHg (OCTOBER 17:12) BMI44.92 (OCTOBER 17:29) Measurements from flowsheet : Measurements 10/17/2024 1:29 EDT Height 177.8 cm Height in inches 70 inch(es) Admission Weight 142 kg Weight Lbs 312.4 lb [place] Body Weight 73.00 kg Type of Scale [...] PRN medication effectiveness Partial Nail Bed Color [place] Capillary Refill < 2 seconds Dorsalis Pedis Pulse, Left 2+ Normal Radial Pulse, Left 2+ Normal Radial Pulse, Right 2+ Normal Respirations Unlabored Respiratory Pattern Regular All Lobes Breath Sounds Clear Abdomen Description Non-distended, Rounded Abdomen Palpation Non-Tender Passing Flatus Yes Bowel Sounds All Quadrants Present Skin Description [place], Dry Skin Temperature Warm Skin Integrity Pressure points intact Skin Turgor Elastic All Extremity Description [place], Normal for ethnicity Temperature All Extremities Warm Mucous Membrane Color [place] Mucous Membrane Description Moist Ankle Right Incision, Wound Dressing/Activity: Assessed Incision, Wound Dressing: Elastic wrap bandage Wound Associated Pain: With activity, mobilization Buttock Inferior, Inner Skin Abnormality Type: Non-pressure ulcer Skin Abnormality Color: [place], Red Incision, Wound Surrounding Tissue: Normal skin [...] EDT Designated Person #1 We May Share [facility] MARILYN OSPINA [phone] Designated Person #1 Relationship Sibling Designated Person #2 We May Share [facility] Designated Person #2 We May Share [facility] Privacy Restrictions Requested None Height 177.8 cm Height in inches 70 inch(es) Admission Weight 142 kg Weight Lbs 312.4 lb [place] Body Weight 73.00 kg Type of Scale [...] evident Teaching Method Explanation Preferred Spoken Language Maltese Preferred Written Language Maltese Disease Process General Education Signs/Symptoms to report, [...] 10/16/2024 16:28 EDT Status N/A [place] Screen ED/GENETIC COUNSELLOR patient History of Fall in Last 3 [...] Needs reinforcement Chief Complaint Pt here from [facility] via squad after a mechanical fall causing a fractureto his right ankle. They splinted it in their ED and sent to [facility] for surgical consult. Place Where Injury/Illness Occurred Other: [facility] Anticoagulants Taken In Past 6 Wks. [...] Non-distended, Symmetric Abdomen Palpation Non-Tender Skin Description [place], Normal for ethnicity, Dry Skin Temperature Warm Mucous Membrane Color [place] Mucous Membrane Description Moist Neurological Symptoms Patient denies Level of Consciousness Alert Eye Opening Response [place] Spontaneously Best Motor Response Luis Felipe Obeys simple commands Best Verbal Response [place] Oriented Luis Felipe Coma Score 15 CLARA [...] No Weight Loss No Preferred Spoken Language Maltese Preferred Written Language Maltese Tracking Group ED Tracking Group Tracking Acuity 3 ED Diabetic Patient No Mode of Transfer Ground ambulance Ambulance Service [facility] Positioning Repositions self Standard Safety [...] ED Triage Adults . Assessment and Plan [place] [employer] Anesthesiologists (ASA) physical status classification: [...] by DELORES BRAVO on 10/17/2024 07:17 AM [facility] HospitalNaitvugr94-10-4461 Note Date of Service October 16, 2024 [...] KARLENE BARCENAS DO on 10/16/2024 10:38 PM [facility] HospitalLtogckyo44-78-6883 Note* Exam Date Time Procedure Performing Provider Status 10/16/24 10:24 PM Electrocardiogram - EKG - CV SA SULY PAULINO MD; Auth (Verified) ECG Final Report SINUS RHYTHM LEFT ANTERIOR FASCICULAR BLOCK LOW VOLTAGE, PRECORDIAL LEADS Electronic Signature: ALIZA PAULINO MD 10/17/2024 18:58:09 [facility] HospitalFjujdmkx13-53-5817 Note* Exam Date Time Procedure Performing Provider Status 10/16/24 10:07 PM XR Ankle Minimum 3 Views Left TRACE ROUSE MD; Auth (Verified) [id number] ORIGINAL EXAMINATION: THREE XRAY VIEWS OF THE [...] 10/16/2024 10:39:42 PM Ordering Provider: RIC ARELLANO [facility] HospitalQrqgnbbr18-00-6223 History and physical note Date of Service 10/16/2024 Chief Complaint Pt here from [facility] via squad after a mechanical fall causing a fracture to his right ankle. They splinted it in their ED and sent to [facility] for surgical consult. History of Present Illness Patient is a 54-year-old male who presents to the [facility] emergency department as a transfer from [facility] for his right ankle fracture. Patient [...] Blood, q24h, for 5 day(s), Preferred Lab: [facility], Stop date 10/20/24 22:00:00 EDT Bedrest, 10/16/24:21:00 EDT, Strict, continuous, Constant order Blood Glucose Call Parameter, 10/16/24:21:00 EDT, If patient is NPO for x-ray or surgery and hypoglycemic, call physician for further orders, 10/16/24 21:21:00 EDT Blood Glucose Call Parameter, 10/16/24:: EDT, call provider if patient's blood glucose is <70mg/dL, 10/16/24:21:00 EDT Blood Glucose Monitoring Bedside PRN, 10/16/24: EDT, PRN Order, For signs/symptoms of hypoglycemia Communication Order (continuous), 10/16/24: EDT, Stat EKG will be obtained in the setting of new, ongoing or worsening chest discomfort/acute coronary syndrome symptoms in all nursing units and/or rhythm change in all monitored units., 10/16/24:21:00 EDT Complete Blood Count(CBC), 10/16/24:21:00 EDT, Timed Study (collect at specified time), Blood, q24h, for 5 day(s), Preferred Lab: [facility], Stop date 10/20/24 22:00:00 EDT Complete Metabolic Panel(CMP), 10/16/24:21:00 EDT, URGENT (collect within 2 hrs), Blood, Once, Nurse Collect, Preferred Lab: [facility], Stop date 10/16/24 21:37:00 EDT Consult to Physician, 10/16/24:21:00 EDT, HOSPITALISTLARRY (For Consultation Assignment OnlyNO other Orders), Routine, medical clearance, follow medically Diet Order, 10/16/24 21:21:00 EDT, Start Meal: Next meal, Regular, Constant Order, : N/A, : N/A Electrocardiogram(EKG), 10/16/24 21:21:00 EDT, Complete by Nursing Incentive Spirometer, 10/16/24 21:21:00 EDT, t6rVT-RH Intake and Output, 10/16/24 21:21:00 EDT, q8h (2p, 10p, 6a) IV Catheter Insertion/Care(Peripheral IV Insertion/Care), 10/16/24 21:21:00 EDT, IV Care: Once, 18 gauge angiocath, if possible Pulse Oximeter - Intermittent, 10/16/24 21:21:00 EDT, AsDirected, PRN order, On admission and as indicated Type and Screen, 10/16/24 21:21:00 EDT, URGENT (collect within 2 hrs), Blood, Once, Nurse Collect, Preferred Lab: [facility], Stop date 10/16/24 21:21:00 EDT [...] RIC ARELLANO DO on 10/16/2024 09:43 PM [facility] HospitalYzezrkgb44-57-6454 Note* Exam Date Time Procedure Performing Provider Status 10/16/24 8:42 PM XR Ankle Minimum 3 Views Right TRACE ROUSE MD; Auth (Verified) [id number] ORIGINAL EXAMINATION: THREE XRAY VIEWS OF THE [...] 10/16/2024 9:20:54 PM Ordering Provider: RIC ARELLANO [facility] HospitalNfgddsty71-35-9983 Note* Exam Date Time Procedure Performing Provider Status 10/16/24 7:09 PM XR Ankle Minimum 3 Views Right TRACE ROUSE MD; Auth (Verified) [id number] ORIGINAL EXAMINATION: THREE XRAY VIEWS OF THE [...] 10/16/2024 7:53:07 PM Ordering Provider: EM GARCIA [facility] HospitalEclxvwwk00-31-7314 Note* Exam Date Time Procedure Performing Provider Status 10/16/24 5:43 PM XR Ankle Minimum 3 Views Right TRACE ROUSE MD; Auth (Verified) [id number] ORIGINAL EXAMINATION: THREE XRAY VIEWS OF THE [...] Sign Date: 10/16/2024 6:28:12 PM Ordering Provider: [facility]05-21-2025 Evaluation + Plan noteExtracted from: Title:Ortho History [...] Blood, q24h, for 5 day(s), Preferred Lab: [facility], Stop date 10/20/24 22:00:00 EDT [...] q24h, for 5 day(s), [facility], Stop date 10/20/24 22:00:00 EDT Complete Metabolic Panel(CMP), 10/16/24:21:00 EDT, URGENT (collect within 2 hrs), Blood, Once, Nurse Collect, Preferred Lab: [facility], Stop date 10/16/24 21:37:00 EDT Consult to Physician, 10/16/24 21:21:00 EDT, HOSPITALISTLARRY (For Consultation Assignment Only NO other Orders), Routine, medical clearance, follow medically Diet Order, 10/16/24 21:21:00 EDT, Start Meal: Next meal, Regular, Constant Order, : N/A, : N/A Electrocardiogram(EKG), 10/16/24 21:21:00 EDT, Complete by Nursing Incentive Spirometer, 10/16/24 21:21:00 EDT, [id number] Intake and Output, 10/16/24 21:21:00 EDT, q8h (2p, 10p, 6a) IV Catheter Insertion/Care(Peripheral IV Insertion/Care), 10/16/24 21:21:00 EDT, IV Care: Once, 18 gauge angiocath, if possible Pulse Oximeter - Intermittent, 10/16/24 21:21:00 EDT, AsDirected, PRN order, On admission and as indicated Type and Screen, 10/16/24 21:21:00 EDT, URGENT (collect within 2 hrs), Blood, Once, Nurse Collect, Preferred Lab: [facility], Stop date 10/16/24 21:21:00 EDT [...] Appointment Date:11/08/2024 02:30:00 PM Scheduled Provider:EDY WEBER Location:[facility] Appointment Type:[facility] Hospital Follow Up Appointment Date:11/12/2024 03:30:00 PM Scheduled Provider:GIRMA CORREA Location:[facility] Appointment Type:[facility] Future Scheduled Tests Laboratory* Basic Metabolic Panel 02/07/24 * Basic Metabolic Panel 12/10/24 * Basic Metabolic Panel 02/19/24 * Magnesium Level 02/07/24 * Complete Blood Count 08/27/24 * Complete Metabolic Panel 08/27/24 * N-Terminal proBNP 08/27/24 [facility] 05-09-2025 Hospital Discharge instructions Patient Education [...] Slowly return to your usual activities. Take fotv-ftx-bppiclu and prescription medicines only as told by [...] 02/07/2002 Document Revised: 10/15/2018 Document Reviewed: 10/15/2018 [employer]Stream Patient Education 2020 Touch-Writer. 10/04/2024 21:03:30 Pursed Lip Breathing Pursed Lip [...] exercise. Follow these instructions at home: Take roow-sqx-sjxpqlc and prescription medicines only as told by [...] 02/21/2009 Document Revised: 04/27/2018 Document Reviewed: 04/06/2017 [employer] Patient Education 2020 Touch-Writer. 10/04/2024 21:03:27 Cough, Adult Cough, Adult Coughing [...] Follow these instructions at home: Medicines Take cxfq-vwu-emidywg and prescription medicines only as told by [...] of a condition that needs treatment. Take daro-ijk-vtxtean and prescription medicines only as told by [...] 11/11/2011 Document Revised: 06/03/2019 Document Reviewed: 06/03/2019 [employer] Patient Education 2020 [employer]. Follow Up Care 10/02/2024 02:08:49 With:readmission score is 13 Address:Unknown When: Unknown With:GIRMA CORREA Address: [address] [place] [phone] Business (1) When:1-2 days [facility] 05-09-2025 Note Discharge Instructions Thank you for allowing [facility] to assist you with your healthcare needs. The following is importantdischarge information regarding your hospital visit. Your Care Team GIRMA CORREA Your Diagnosis Shortness of breath What to do next Scheduled Follow-Up Appointments Appointment Type When With Where Contact Information StatusPC OV 10/23/2024 04:00 PM EDT GIRMA CORREA [facility] Confirmed CV OV Hospital Follow Up 11/08/2024 02:30 PM EDT [facility] App[facility]ments Follow Up with readmission score is 13 Follow Up with GIRMA CORREA When:Within 1-2 days Where:[address] [place], [place] [phone] Business (1) The Following Activity and Diet [...] within 14 days after discharge, please call [facility] at [phone]. Post Acute Orders No qualifying data available. [...] a day Take with food Pickup at [facility]/pharmacy #[id number] Unchanged acetaminophen (Tylenol) by mouth As needed [...] Two (2) times a day Pickup at [facility]/pharmacy #[id number] Unchanged dulaglutide (Trulicity Pen 1.5 [...] by mouth Daily at bedtime Pickup at [facility]/pharmacy #[id number] Unchanged spironolactone (spironolactone 25 mg oral tablet) 1 tab(s) by mouth Once a day Duration: 90 Days Unchanged tiZANidine (tiZANidine 2 mg oral tablet) 1 tab(s) by mouth Every 8 hours as needed for as needed for muscle spasm Duration: 7 Days Unchanged traZODone (traZODone 100 mg oral tablet) 1 tab(s) by mouth Daily at bedtime Pharmacy Information [facility]/pharmacy #[id number]: [address], [place] [phone] Please take this list to your next doctor s visit. Bring all medications you take, including over the counter medications, herbals and other supplements with you to your doctor s visit. Patients and families are reminded to discard old lists and to update any records with all medication providers or retail pharmacies. Medication Leaflets hydroxyzine (shelley DROX ee zeen) Gingertaril What is the most important information I [...] may report side effects to FDA at 7-517-GTH-4917. What other drugs will affect hydroxyzine? Taking [...] may interact with hydroxyzine, including prescription and erlz-zhd-zyczfzy medicines, vitamins, and herbal products. Not all [...] to ensure that the information provided by [employer] ('[employer]') is accurate, up-to-date, and complete, but no guarantee is made to that effect. Drug information contained herein may be time sensitive. [employer] information has been compiled for use by healthcare practitioners and consumers in the [place] and therefore [employer] does not warrant that uses outside of the [place] are appropriate, unless specifically indicated otherwise. [employer] drug information does not endorse drugs, diagnose patients or recommend therapy. [employer] drug information isan informational resource designed to [...] effective or appropriate for any given patient. [employer] does not assume any responsibility for any aspect of healthcare administered with the aid of information [employer] provides. The information contained herein is not intended to cover all possible uses, directions, precautions, warnings, drug interactions, allergic reactions, or adverse effects. If you have questions about the drugs you are taking, check with your doctor, nurse or pharmacist. Copyright 5856-8832 [employer] Version: 8.01. Revision Date: 08/10/2016. furosemide (oral/injection) [...] wireless accessories such as remote control, or [employer] devices. Do not reuse a needle, syringe [...] blood pressure, such as diet pills or jspyn-yxy-iqkn medicine. What are the possible side effects [...] may report side effects to FDA at 4-369-LEE-0144. What other drugs will affect furosemide? Sometimes [...] drugs may affect furosemide, including prescription and ixvf-adt-gtbzzqa medicines, vitamins, and herbal products. Not all [...] to ensure that the information provided by [employer]') is accurate, up-to-date, and complete, but no guarantee is made to that effect. Drug information contained herein may be time sensitive. [employer] information has been compiled for use by healthcare practitioners and consumers in the [place] and therefore [employer] does not warrant that uses outside of the [place] are appropriate, unless specifically indicated otherwise. [employer] drug information does not endorse drugs, diagnose patients or recommend therapy. [facility] drug information isan informational resource designed to [...] effective or appropriate for any given patient. [facility] does not assume any responsibility for any aspect of healthcare administered with the aid of information [facility] provides. The information contained herein is not intended to cover all possible uses, directions, precautions, warnings, drug interactions, allergic reactions, or adverse effects. If you have questions about the drugs you are taking, check with your doctor, nurse or pharmacist. Copyright 4635-2777 [facility] [employer]. Version: . Revision Date: 11/07/2023. cetirizine (oral/injection) (se CANDY [...] may report side effects to FDA at 8-153-OWQ-8130. What other drugs will affect cetirizine? Using cetirizine with other drugs that make you drowsy can worsen this effect. Ask your doctor before using opioid medication, a sleeping pill, a muscle relaxer, or medicine for anxiety or seizures. Other drugs may affect cetirizine, including prescription and omhv-fxz-vzlempd medicines, vitamins,and herbal products. Tell your doctor [...] to ensure that the information provided by [employer]') is accurate, up-to-date, and complete, but no guarantee is made to that effect. Drug information contained herein may be time sensitive. [employer] information has been compiled for use by healthcare practitioners and consumers in the [place] and therefore [employer] does not warrant that uses outside of the [place] are appropriate, unless specifically indicated otherwise. [employer] drug information does not endorse drugs, diagnose patients or recommend therapy. [employer] drug information isan informational resource designed to [...] effective or appropriate for any given patient. [employer] does not assume any responsibility for any aspect of healthcare administered with the aid of information [employer] provides. The information contained herein is not intended to cover all possible uses, directions, precautions, warnings, drug interactions, allergic reactions, or adverse effects. If you have questions about the drugs you are taking, check with your doctor, nurse or pharmacist. Copyright 6599-0767 [employer] Version: 13.. Revision Date: 11/16/2022. dofetilide (mathias [...] may report side effects to FDA at 5-551-NAV-1562. What other drugs will affect dofetilide? Other drugs may interact with dofetilide, including prescription and uppe-sty-tsiwfsa medicines, vitamins, and herbal products. Tell each [...] to ensure that the information provided by [employer]') is accurate, up-to-date, and complete, but no guarantee is made to that effect. Drug information contained herein may be time sensitive. [employer] information has been compiled for use by healthcare practitioners and consumers in the [place] and therefore [employer] does not warrant that uses outside of the [place] are appropriate, unless specifically indicated otherwise. [employer] drug information does not endorse drugs, diagnose patients or recommend therapy. [employer] drug information isan informational resource designed to [...] effective or appropriate for any given patient. [employer] does not assume any responsibility for any aspect of healthcare administered with the aid of information [facility] provides. The information contained herein is not intended to cover all possible uses, directions, precautions, warnings, drug interactions, allergic reactions, or adverse effects. If you have questions about the drugs you are taking, check with your doctor, nurse or pharmacist. Copyright 7058-5652 [employer] Version: 4.01. Revision Date: 09/09/2015. allopurinol (oral/injection) [...] and call your (more content not included)... [id number] Pastoral care Progress note Pastoral Care Note [...] by Sanjay Lucas on 10/04/2024 04:16 PM [facility] [id number] Discharge summary Date of Service 10/04/2024 Discharge [...] GIRMA CORREA When:Within 1-2 days Where:[address] [place] [place] [phone] Business (1) Follow Up Appointments No qualifying data available. Follow Up Labs/Studies Discharge Labs No Follow-up Labs Discharge Studies No Follow-up Studies Discharge Diet No qualifying data available. Discharge Activity No qualifying data available. Readmission Risk/Palliative Score LACE Score: 13 (10/02/24 10:21:00) Palliative Total Score: 1 (10/02/24 10:21:00) Digitally Signed by DUSTIN RICHARD MD on 10/04/2024 12:27 PM [facility] HospitalQrgtlxcq22-37-2032 Discharge summary Date of Service 10/04/2024 Discharge [...] GIRMA CORREA When:Within 1-2 days Where:[address] [facility] [place] [phone] Business (1) Follow Up Appointments No qualifying data available. Follow Up Labs/Studies Discharge Labs No Follow-up Labs Discharge Studies No Follow-up Studies Discharge Diet No qualifying data available. Discharge Activity No qualifying data available. Readmission Risk/Palliative Score LACE Score: 13 (10/02/24 10:21:00) Palliative Total Score: 1 (10/02/24 10:21:00) Digitally Signed by DUSTIN RICHARD MD on 10/04/2024 12:27 PM [facility] HospitalPkrgetqw90-19-2073 Cardiology Progress note Date of Service 10/03/2024 [...] BUN: 7.0 L Creatinine Lvl (s): 0.73 05/07 09:41 WBC: 6.6 Hgb: 15.6 Hct: 47.4 [...] DUSTIN RICHARD MD on 10/03/2024 01:50 PM [facility] HospitalOhttafed03-30-5923 Note* Exam Date Time Procedure Performing Provider Status 10/03/24 10:08 PM Electrocardiogram - EKG - CV JOHNIE VELÁZQUEZ MD; Auth (Verified) ECG Final Report SINUS RHYTHM LEFT AXIS DEVIATION LOW VOLTAGE, PRECORDIAL LEADS Electronic Signature: JOHNIE VELÁZQUEZ MD 10/04/2024 21:58:08 [facility] [id number] Note* Exam Date Time Procedure Performing Provider Status 10/03/24 4:01 PM Echocardiogram, Adult - CV ALIZA PAULINO MD; Auth (Verified) [facility] [id number] Cardiology Progress note Date of Service 10/03/2024 [...] DUSTIN RICHARD MD on 10/03/2024 01:50 PM [facility] [id number] Note* Exam Date Time Procedure Performing Provider Status 10/03/24 10:03 AM Electrocardiogram - EKG - CV JOHNIE VELÁZQUEZ MD; Auth (Verified) ECG Final Report SINUS RHYTHM LOW VOLTAGE, PRECORDIAL LEADS CONSIDER ANTERIOR INFARCT Electronic Signature: JOHNIE VELÁZQUEZ MD 10/04/2024 21:57:56 [facility] [id number] Note* Exam Date Time Procedure Performing Provider Status 10/02/24 10:04 PM Electrocardiogram - EKG - CV JOHNIE VELÁZQUEZ MD; Auth (Verified) ECG Final Report SINUS RHYTHM LEFT ANTERIOR FASCICULAR BLOCK PROLONGED QT INTERVAL Electronic Signature: JOHNIE VELÁZQUEZ MD 10/03/2024 19:52:07 [facility] HospitalWxxzkbwj25-37-2022 History and physical note Date of Service [...] Diabetes mellitus Patient is currently in in [facility] A-fib. Rate is relatively well-controlled. [...] DUSTIN RICHARD MD on 10/02/2024 03:28 PM [facility] HospitalWzmqivhu98-30-8961 Note Date of Service October 02, 2024 [...] only), Blood, Once, Nurse Collect, Preferred Lab: [facility], Stop date 10/03/24 5:00:00 EDT [...] by MARILUZ BUI on 10/02/2024 02:36 PM [facility] [id number] Note Date of Service October 02, 2024 [...] only), Blood, Once, Nurse Collect, Preferred Lab: [facility], Stop date 10/03/24 5:00:00 EDT [...] by MARILUZ BUI on 10/02/2024 02:36 PM [facility] [id number] Evaluation + Plan noteExtracted from: Title:History and Physical Author:DUSTIN RICHARD MD Date:10/02/24 Paroxysmal atrial fibrillati on Tachyarrhythmia induced cardiomyopathy Heart failure with improved EF (EF 30 to 35% in October 2022 to 55% in 2023) Moderate to severe LVH Mild pulmonary hypertension Severely dilated LA (LA 5.1 cm, DANIEL??) Obesity and KOFFI (intolerant to CPAP) Hypertension Diabetes mellitus Patient is currently in in [facility]. Rate is relatively well-controlled. Continue Cardizem drip. [...] Appointment Date:10/23/2024 04:00:00 PM Scheduled Provider:GIRMA CORREA Location:[facility] Appointment Type:PC OV Appointment Date:11/08/2024 02:30:00 PM Scheduled Provider:EDY WEBER Location:[facility] Appointment Type:CV Hospital Follow Up Diagnostic Tests Pending * Urinalysis w/ C&S if Indicated 10/02/24 Future Scheduled Tests Laboratory* Basic Metabolic Panel 02/07/24 * Basic Metabolic Panel 12/10/24 * Basic Metabolic Panel 02/19/24 * Magnesium Level 02/07/24 * Complete Blood Count 08/27/24 * Complete Metabolic Panel 08/27/24 * N-Terminal proBNP 08/27/24 [facility] 05-07-2025 Note* Exam Date Time Procedure Performing Provider Status 10/02/24 1:53 PM Electrocardiogram - EKG - CV Brant VELÁZQUEZ MD; Auth (Verified) ECG Final Report SINUS RHYTHM PROBABLE LEFT ATRIAL ENLARGEMENT Left axis deviation Electronic Signature: JOHNIE VELÁZQUEZ MD 10/03/2024 19:51:33 [facility] HospitalYlsqokvz09-94-2762 History and physical note Date of Service [...] Diabetes mellitus Patient is currently in in [facility]. Rate is relatively well-controlled. Continue Cardizem [...] DUSTIN RICHARD MD on 10/02/2024 03:28 PM [facility] [id number] Respiratory therapy Hospital Progress note Respiratory Therapy [...] Freq: QIDRT & Albuterol Q2 RT prn UCRTIS Patton - 10/02/2024 11:12 EDT Pulmonary Status [...] by CURTIS Patton on 10/02/2024 11:12 AM [facility] [id number] Note* Exam Date Time Procedure Performing Provider Status 10/02/24 8:23 AM Electrocardiogram - EKG - CV Brant VELÁZQUEZ MD; Auth (Verified) ECG Final Report ATRIAL FIBRILLATION LEFT ANTERIOR FASCICULAR BLOCK Electronic Signature: JOHNIE VELÁZQUEZ MD 10/03/2024 19:51:22 [facility] [id number] Note* Exam Date Time Procedure Performing Provider Status 10/02/24 6:24 AM Electrocardiogram - EKG - CV Brant VELÁZQUEZ MD; Auth (Verified) ECG Final Report ATRIAL FIBRILLATION WITH RAPID VENTRICULAR RESPONSE Right axis deviation Electronic Signature: JOHNIE VELÁZQUEZ MD 10/03/2024 19:51:11 [facility] HospitalBvajydou38-83-4694 Nurse Progress note bryon Nicole [phone] Digitally Signed by Halley Staples RN on 10/02/2024 04:26 AM [facility]05-07-2025 Nurse Progress note ready bed at main, transport called at 0230 ETA 90 min Digitally Signed by Halley Staples RN on 10/02/2024 04:22 AM [facility]05-07-2025 Nurse Progress note ready bed at main, transport called at 0230 ETA 90 min Digitally Signed by Halley Staples RN on 10/02/2024 04:22 AM [facility]05-07-2025 Note* Exam Date Time Procedure Performing Provider Status 10/02/24 1:43 AM XR Chest 1 View DARNELL MOLINA MD; A [facility] (Verified) [id number] ORIGINAL EXAMINATION: ONE XRAY VIEW OF THE [...] 2:02:33 AM Ordering Provider: DELORES MURO [facility]05-07-2025 Note* Exam Date Time Procedure Performing Provider Status 10/02/24 12:38 AM EKG [ED AOH] - CV DELORES MURO DO; A [facility] (Verified) ECG Final Report Atrial fibrillation Inferior infarct, old Probable anteroseptal infarct, old Prolonged QT interval Baseline wander in lead(s) III,V1,V2,V5,V6 Compared to ECG at 08/13/2024 11:03:57 Electronic Signature: DELORES MURO DO 10/02/2024 02:28:42 [facility]10-30-2024 Note The microscopic examination is performed, except in the case of Gross Only. [facility] 10-29-2024 Note The microscopic examination is performed, except in the case of Gross Only. [facility] 10-29-2024 Note The microscopic examination is performed, except in the case of Gross Only. [facility] 10-29-2024 Note The microscopic examination is performed, except in the case of Gross Only. [facility] 10-29-2024 Note The microscopic examination is performed, except in the case of Gross Only. [facility] 10-29-2024 Note The microscopic examination is performed, except in the case of Gross Only. [facility] 10-29-2024 Note The microscopic examination is performed, except in the case of Gross Only. [facility] 09-11-2024 Evaluation + Plan note Future Scheduled Tests Laboratory* Basic Metabolic Panel 02/07/24 * Basic Metabolic Panel 12/10/24 * Basic Metabolic Panel 02/19/24 * Magnesium Level 02/07/24 * Complete Blood Count 08/27/24 * Complete Metabolic Panel 08/27/24 * N-Terminal proBNP 08/27/24 [facility] 09-09-2024 Note. MICRO - Microbiology PROCEDURE: [...] Locations *1: This test was performed at: [facility], [address] [place] [address], [id number] , [facility]09-09-2024 Note. MICRO - Microbiology PROCEDURE: Blood [...] Locations *1: This test was performed at: [address], [address] [place], [place] [address]-09-2024 Note. MICRO - Microbiology PROCEDURE: Blood Culture [...] Locations *1: This test was performed at: [address], [address] [place], [place] [address]-09-2024 Note. MICRO - Microbiology PROCEDURE: Blood Culture [...] Locations *1: This test was performed at: [facility], [address] [place] [address], [id number] , [facility] [id number] Hospital Discharge instructions Patient Education 02/01/2024 17:18:13 Atrial Fibrillation, Zttn-ms-Gzqh Atrial Fibrillation Atrial fibrillation is a type [...] Follow these instructions at home: Medicines Take rngo-lkq-qfnelkf and prescription medicines only as told by [...] You have any signs of a stroke. "BE FAST" is an easy way to remember the [...] 02/21/2009 Document Revised: 07/19/2018 Document Reviewed: 07/06/2018 [employer] Patient Education 2020 Touch-Writer. Follow Up Care 01/31/2024 00:20:11 With:GIRMA CORREA Address: [address] [place] [address]- When:1-2 days Comments:Please call the office to schedule a hospital follow-up appointment. [facility] 09-05-2024 Note Discharge Instructions Thank you for allowing [facility] to assist you with your healthcare needs. The following is importantdischarge information regarding your hospital visit. Your Care Team GIRMA CORREA Your Diagnosis Shortness of breath What to do next Instructions From Your Doctor Resume taking all your usual medications Keep yourself hydrated Follow-up with your primary care physician and physicist light and optics Scheduled Follow-Up Appointments Appointment Type When With Where Contact Information StatusPC Wellness Annual w/Labs 02/13/2024 03:30 PM EDT GIRMA CORREA [facility] Confirmed Follow Up Appointments Follow Up with GIRMA CORREA When:Within 1-2 days Where:[address] [place] [address]- Additional Information: Please call the office to [...] Follow these instructions at home: Medicines Take lhad-yhs-hrcoioz and prescription medicines only as told by [...] You have any signs of a stroke. "BE FAST" is an easy way to remember the [...] 02/21/2009 Document Revised: 07/19/2018 Document Reviewed: 07/06/2018 [employer]Stream Patient Education 2020 Touch-Writer. Additional Information VACCINATE! IT SAVES LIVES! Members of the community who have not yet received the COVID-19 vaccine and would like to receive it can visit one of [facility] vaccine clinics. There are many vaccine clinic locations within the [facility]. For locations and available times, please visit [email or web address] It is important to note that some COVID mobile vaccine clinics are held outdoors and may be canceled in rainy or stormy conditions. To learn more about pediatric vaccinations (ages 5-11), we invite you to visit the [facility] webpage. [email or web address]/[email or web address] stions.htmlTo learn more about the COVID-19 vaccine, we invite you to visit the CDC website for a list of frequently asked questions.https://www.cdc.gov/coronavirus/2019-ncov/vaccines/faq.html [facility] Patient Portal Access Instructions: Stay connected with your healthcare team and access your personal medical information anytime with the [employer] Patient Portal. Please follow the directions below to create your [employer] account: 1.Access the email account you provided upon registration to the hospital/physician office.2.Look for an invitation email from [facility].3.Open the email and access the invitation link: AcceptInvitation to [employer].4.Fill in the required orr to create your account. To access your account, visit [email or web address]. Click the blue button labeled "Access Patient Portal" and then log in with the username [...] who you will allowto register on the [facility] for access to your information. You can also access the [facility] Patient Portal on the [facility] frida. Simply click on "Patient Portal" and then log into your account. If you would like to receive a full copy of your medical records, please contact the [facility] Medical Records Department by calling [phone], Monday through Monday between 8 a.m. and [...] Call your local pharmacy or go to [email or web address] to find one close to you.3.Make use of household items: Use cat litter or old coffee grounds to dispose medications if other options arenot available. Mix your drugs with these household products, seal them in an airtight container andthrow it into the garbage. Call [facility]: [phone] to be sure your drugs can be [...] COPY. Signatures Patient Education Materials Atrial Fibrillation, Eagq-ae-Hdyx Medication Leaflets My discharge plan and instructions have been reviewed and explained to me and I,CARLOS ALBERTO KELLEY understand my current condition and have read and understand these discharge instructions. I have received awritten copy of the plan/instructions. If I have questions, I am aware that I should contact my doctor. 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 The patient presented to the [facility] 01/[facility] as a transfer from [place] for A-fib with RVR. 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 Blood Glucose Test Strips: See Instructions, 1 bottle of 100 Test once daily, # 1 EA, 11 Refill(s), Pharmacy: [facility], 177.8, cm, 11/28/23 13:54:00 EDT, Height, 151.4, kg, 11/28/23 13:54:00 EDT, Dosing Weight FLUoxetine 20 mg oral capsule: Dose : 20 mg = 1 cap(s), Oral, qDay, # 30 cap(s), 3 Refill(s), Pharmacy: [facility], 177.8, cm, 11/28/23 13:54:00 EDT, Height, kg, 11/28/23 13:54:00 EDT,Dosing Weight Lancets: See Instructions, qs 1 month supply Test once daily, # 1 EA, 11 Refill(s), Pharmacy: [facility], 177.8, cm, 11/28/23 13:54:00 EDT, Height, 151.4, kg, 11/28/23 13:54:00 EDT, Dosing Weight Lasix 40 mg oral tablet: See Instructions, 1 tab in AM and 0.5 tab in PM, # 135 tab(s), 3 Refill(s), Pharmacy: [facility], 177.8, cm, 11/28/23 13:54:00 EDT, Height, kg, 11/28/23 13:54:00 EDT, Dosing Weight Symbicort 80 mcg-4.5 mcg/inh Inhaler: Dose = 2 puff(s), Inhalation, BID, # 10.2 gram(s), 3 Refill(s), Pharmacy: [facility], 177.8, cm, 11/28/23 13:54:00 EDT, Height, kg, 11/28/23 13:54:00 EDT, Dosing Weight Tikosyn 250 mcg oral capsule: Dose : 250 mcg = 1 cap(s), Oral, BID, # 180 cap(s), 3 Refill(s), Pharmacy: [facility]/pharmacy #[id number], 177.8, cm, 11/28/23 13:54:00 EDT, Height, kg, 11/28/23 13:54:00 EDT, Dosing Weight Toprol-XL 100 mg oral tablet, extended release: Dose : 100 mg = 1 tab(s), Oral, BID, do not crush or chew, # 180 tab(s), 3 Refill(s), Pharmacy: [facility], Shortness of breath, 177.8, cm, 11/28/23 13:54:00 EDT, Height, kg, 11/28/23 13:54:00 EDT, Dosing Weight Trulicity Pen 1.5 mg/0.5 mL subcutaneous solution: Dose : 1.5 mg =, Subcutaneous, qWeek, sent in absence of PCP, # 4 EA, 3 Refill(s), Pharmacy: [facility], 177.8, cm, 11/28/23 13:54:00EDT, Height, kg, 11/28/23 13:54:00 EDT, Dosing Weight Vistaril 25 mg oral capsule: Dose : 25 mg = 1 cap(s), Oral, QID, PRN as needed for anxiety, X 30 day(s), # 120 cap(s), 5 Refill(s), 06/09/24 16:10:00 EST, Pharmacy: [facility], 177.8, cm, 11/28/23 13:54:00 EDT, Height, kg, 11/28/23 13:54:00 EDT, Dosing Weight Xarelto 20 mg oral tablet: Dose : 20 mg = 1 tab(s), Oral, qHS, # 90 tab(s), 3 Refill(s), Pharmacy: [facility], 177.8, cm, 11/28/23 13:54:00 EDT, Height, 151.4, kg, 11/28/23 13:54:00 EDT, Dosing Weight allopurinol 100 mg oral tablet: Dose : 100 mg = 1 tab(s), Oral, qDay, # 90 tab(s), 3 Refill(s), Pharmacy: [facility], 177.8, cm, 11/28/23 13:54:00 EDT, Height, kg, 11/28/23 13:54:00 EDT, Dosing Weight cetirizine 10 mg oral tablet: Dose : 10 mg = 1 tab(s), Oral, Daily, # 90 tab(s), 3 Refill(s), Pharmacy: [facility], 177.8, cm, 11/28/23 13:54:00 EDT, Height, kg, 11/28/23 13:54:00 EDT,Dosing Weight nystatin 100,000 units/g topical cream: Apply 1 frida, Topical, BID, X 10 day(s), # 30 gram(s), 1 Refill(s), Pharmacy: [facility]/pharmacy #[id number], Cream, 177, cm, 01/12/24 9:42:00 EDT, Height, 148.6, kg, 01/12/24 9:42:00 EDT, Dosing Weight omeprazole 40 mg oral delayed release capsule: Dose : 40 mg = 1 cap(s), Oral, BID, before a meal., # 180 cap(s), 3 Refill(s), Pharmacy: [facility], 177.8, cm, 11/28/23 13:54:00 EDT, Height, kg, 11/28/23 13:54:00 EDT, Dosing Weight rosuvastatin 20 mg oral tablet: Dose : 20 mg = 1 tab(s), Oral, Daily, # 100 tab(s), 3 Refill(s), Pharmacy: [facility], 177.8, cm, 11/28/23 13:54:00 EDT, Height, kg, 11/28/23 13:54:00 EDT, Dosing Weight sacubitril-valsartan 49 mg-51 mg oral tablet: Dose = 1 tab(s), Oral, BID, # 180 tab(s), 3 Refill(s), Pharmacy: [facility], 177.8, cm, 11/28/23 13:54:00 EDT, Height, kg, 11/28/23 13:54:00 EDT, Dosing Weight spironolactone 25 mg oral tablet: Dose : 25 mg = 1 tab(s), Oral, qDay, # 90 tab(s), 3 Refill(s), Pharmacy: [facility], 177.8, cm, 11/28/23 13:54:00 EDT, Height, kg, 11/28/23 13:54:00 EDT, Dosing Weight tiZANidine 2 mg oral tablet: Dose : 2 mg = 1 tab(s), Oral, q8h, PRN as needed for muscle spasm, # 90 tab(s), 2 Refill(s), Pharmacy: [facility], 177.8, cm, 11/28/23 13:54:00 EDT, Height, kg, 11/28/23 13:54:00 EDT, Dosing Weight traZODone 100 mg oral tablet: Dose : 100 mg = 1 tab(s), Oral, qHS, # 90 tab(s), 3 Refill(s), Pharmacy: [facility], 177.8, cm, 11/28/23 13:54:00 EDT, [...] list: Medical Asthma exacerbation / SNOMED CT 3251490814 / Confirmed Anxiety / SNOMED CT 17823573 / Confirmed Atopic dermatitis / SNOMED CT 12340010 / Confirmed BMI 45.0-49.9, adult / SNOMED CT 2976830259 / Confirmed Cardiomyopathy / SNOMED CT 778042572 / Confirmed Diabetes mellitus / SNOMED CT 554739642 / Confirmed Generalized anxiety disorder / SNOMED CT 37717767 / Confirmed Hyperlipidemia / SNOMED CT 70806398 / Confirmed Hypertension / SNOMED CT 6716042772 / Confirmed Insomnia / SNOMED CT 926536493 / Confirmed Moderate asthma / SNOMED CT 7708407225 / Confirmed Morbid obesity / SNOMED CT 074306147 / Confirmed Chewing tobacco nicotine dependence / SNOMED CT 87356521 / Confirmed Obstructive sleep apnea / SNOMED CT 447865225 / Confirmed Right knee pain / SNOMED CT 7141863105 / Confirmed Paroxysmal atrial fibrillation / SNOMED CT 073506404 / Confirmed Screening for ischemic heart disease / SNOMED CT 746618030 / Confirmed Screening for colon cancer / SNOMED CT 323753543 / Confirmed Prediabetes / SNOMED CT 1329960026 / Confirmed Right flank pain / SNOMED CT 055336503 / Confirmed Type 2 diabetes mellitus with hemoglobin A1c goal of less than 7.0% / SNOMED CT 565072006 / Confirmed Wheezing / SNOMED CT 60191695 / Confirmed, Active Problems (26) Anxiety Asthma [...] Mother Grandparent Stroke Father Procedure history: Cardioversion ([id number]) on 12/23/2022 at 52 Years. Echocardiogram ([id number]) on 11/11/2022 at 52 Years. Comments: 03/20/2023 [...] atrial pressure is 15 mm Hg Elbow ([id number]). Comments: 07/11/2022 8:26 SHAHEEN Nunez bursitis - [...] On and Limits Checked Nail Bed Color [place] Capillary Refill < 2 seconds Heart Sounds [...] Elimination Voiding, no difficulties All Extremity Description [place] Skin Temperature Warm Temperature All Extremities Warm Skin Description [place], Dry Skin Integrity Intact Skin Turgor Non-Elastic Mucous Membrane Color [place] Mucous Membrane Description Moist Neurological Language Able to speak clearly Neurological Symptoms Patient denies Gait Unable to assess Extremity Movement Equal Swallowing Difficulty None Characteristics of Communication Appropriate Characteristics of Speech Clear Facial Symmetry Symmetric Level of Consciousness Alert Aspiration Risk None Eye Opening Response Luis Felipe Spontaneously Best Motor Response [place] Obeys simple commands Best Verbal Response [place] Oriented Luis Felipe Coma Score 15 CLARA [...] On and Limits Checked Nail Bed Color [place] Capillary Refill < 2 seconds Heart Sounds ICU S1S2 Heart Rhythm Irregular Cardiac Rhythm Sinus rhythm Monitoring Lead II, V5/MCL5 MN Interval 0.16 second(s) QRS Duration 0.08 second(s) [...] Elimination Voiding, no difficulties All Extremity Description [place] Skin Temperature Warm Temperature All Extremities Warm Skin Description [place], Dry Skin Integrity Intact Skin Turgor Non-Elastic Mucous Membrane Color [place] Mucous Membrane Description Moist Neurological Language Able to speak clearly Neurological Symptoms Patient denies Gait Unable to assess Extremity Movement Equal Swallowing Difficulty None Characteristics of Communication Appropriate Characteristics of Speech Clear Facial Symmetry Symmetric Level of Consciousness Alert Aspiration Risk None Eye Opening Response [place] Spontaneously Best Motor Response [place] Obeys simple commands Best Verbal Response Luis Felipe Oriented [place] Coma Score 15 CLARA Yes Strength All [...] On and Limits Checked Nail Bed Color [place] Capillary Refill < 2 seconds Heart Sounds [...] Movement Makes facial grimaces All Extremity Description [place] Skin Temperature Warm Temperature All Extremities Warm Skin Description [place], Dry Skin Integrity Intact Skin Turgor Non-Elastic Mucous Membrane Color [place] Mucous Membrane Description Moist Sensory Perception [place] [...] On and Limits Checked Nail Bed Color [place] Capillary Refill < 2 seconds Heart Sounds [...] intact Skin Turgor Non-Elastic Mucous Membrane Color [place] Mucous Membrane Description Moist Neurological Language Able to speak clearly Neurological Symptoms Patient denies Extremity Movement Equal Swallowing Difficulty None Characteristics of Communication Appropriate Characteristics of Speech Clear Facial Symmetry Symmetric Level of Consciousness Alert Aspiration Risk None Eye Opening Response Luis Felipe Spontaneously Best Motor Response [place] Obeys simple commands Best Verbal Response Luis [...] of Bed Elevated 30 01/31/2024 15:38 EDT [facility] Current Living Situation I have a steady place to live [facility] Current Issues Living Environment None [facility] Worried Food Running Out P12M Never true [facility] Food Gone, No Money To Buy P12M Never true [facility] No Transport Med/Appt/Work P12M No [facility] Utilities Threaten Shut Off P12M No [facility] Anyone Physically Hurt You Never (1) [facility] Anyone Insult Or Talk Down To You Never (1) [facility] Anyone Threaten You With Harm Never (1) [facility] Anyone Scream Or Curse At You Never (1) [facility] Safety Total Score 4 Living Situation Lives with family Discharge To, Anticipated Home independently Anticipated Discharge Date 02/02/2024 Transition Planning Note Transition Planning Initial Assessment 01/31/2024 15:36 EDT Primary Care Phone Message Transition of Care sent from [facility] 01/31/2024 14:59 EDT heparin 9,000 unit(s) unit(s) Dextrose 5% Premix Diluent 90 mL mL 01/31/2024 14:43 EDT [place] Body Weight 72.7 kg Home Diet Regular Weight Chg, Unintentional Nutrition Hx Weight stable per [place] history Appetite Good Nutrition Plan of Care Dietitian follow up/monitor, Encourage PO feedings, Participate in team conference Nutrition Follow-Up Needed Yes Days until [employer] Follow Up Seven days Adult Nutrition Initial Assessment/Plan Adult Nutrition Assessment/Plan 01/31/2024 14:22 EDT Transition of Care Note Transition of Care sent from [facility] 01/31/2024 14:00 EDT Hand Right 01/30/2024 [...] On and Limits Checked Nail Bed Color [place] Capillary Refill < 2 seconds Heart Rhythm [...] Description Normal for ethnicity Mucous Membrane Color [place] Mucous Membrane Description Moist Hand Right 01/30/2024 [...] On and Limits Checked Nail Bed Color [place] Capillary Refill < 2 seconds Heart Rhythm [...] intact Skin Turgor Non-Elastic Mucous Membrane Color [place] Mucous Membrane Description Moist Continuous IV Infusions [...] Alert Aspiration Risk None Eye Opening Response [place] Spontaneously Best Motor Response Luis Felipe Obeys simple commands Best Verbal Response [place] Oriented [place] Coma Score 15 CLARA Yes Left Pupil [...] On and Limits Checked Nail Bed Color [place] Capillary Refill < 2 seconds Heart Rhythm Irregular Pretibial edema Bilateral Edema Ratin+ trace/2mm Cardiac Rhythm Atrial fibrillation Monitoring Lead II, V6/MCL6 Alarms On and Functional Yes Respirations Unlabored Respi (more content not included)... [id number] NoteSINUS RHYTHM IVCD MISSING LEAD(S): V1,V2,V3,V4,V5 Electronic Signature: MOY WATTS MD 02/01/2024 11:10:[address] [place] [address] 09-04-2024 Cardiology Consult note Date of Service [...] anxiety and gout who initially presented to [facility] on 01/30/2024 for shortness of breath and [...] not tolerate Cardizem drip. Patient transferred to [facility] for further management. Placed on Levophed. [...] (s): 1.87 H Assessment/Plan A-fib with RVR ([id number]) Near syncopal episode Tachycardia mediated cardiomyopathy [...] Will continue to follow. Patient seen with physicist light and optics Dr. Hartley who agreed with plan. Please [...] MICHELLE HENRY MD on 01/31/2024 12:53 PM [id number] Note* Exam Date Time Procedure Performing Provider Status 01/31/24 4:20 PM Echocardiogram, Adult - CV Auth (Verified) [facility] 09-04-2024 Note. MICRO - Microbiology PROCEDURE: [...] Locations *1: This test was performed at: [address], [address] [place], [place] [address]-31-2024 Note. MICRO - Microbiology PROCEDURE: Blood Culture [...] Locations *1: This test was performed at: [address], [address] [place], [place] [address]-31-2024 Evaluation + Plan noteExtracted from: Title:History and [...] prophylactically got a dose of ceftriaxone at [facility]. We will continue with prophylactic ceftriaxone dose [...] atrial fibrillation with rapid ventricular rate at [facility] admitted to the ICU overnight started on [...] Appointment Date:02/13/2024 03:30:00 PM Scheduled Provider:GIRMA CORREA Location:[facility] Appointment Type: Wellness Annual w/Labs Diagnostic Tests Pending * Culture Respiratory with Gram Stain 01/31/24 * APTT 02/01/24 Future Scheduled Tests Laboratory* Basic Metabolic Panel 04/01/23 * Prostate Specific Antigen 02/07/24 * A1C Hemoglobin 02/07/24 * Lipid Profile 02/07/24 * Complete Metabolic Panel 02/07/24 [facility] 09-04-2024 History and physical note Date [...] evaluated On arrival to the ER at [facility], patient was febrile 37.4, tachycardic 133, tachypneic 21, BP 90/76, was saturating 96% on room air. Labs done at [facility] 01/30/2024 revealed pO2 51 on the gases [...] prophylactically got a dose of ceftriaxone at [facility].We will continue with prophylactic ceftriaxone dose as [...] CINDY HERNANDEZ MD on 01/31/2024 08:06 AM [id number] Cardiology Consult note Date of Service 01/31/2024 [...] anxiety and gout who initially presented to [facility] on 01/30/2024 for shortness of breath and [...] not tolerate Cardizem drip. Patient transferred to [facility] for further management. Placed on Levophed. [...] (s): 1.87 H Assessment/Plan A-fib with RVR ([id number] 2) Near syncopal episode Tachycardia mediated cardiomyopathy [...] Will continue to follow. Patient seen with physicist light and optics Dr. Hartley who agreed with plan. Please [...] MICHELLE HENRY MD on 01/31/2024 12:53 PM [facility] [id number] NoteATRIAL FIBRILLATION LAD, CONSIDER LEFT ANTERIOR FASCICULAR BLOCK LOW VOLTAGE, PRECORDIAL LEADS BORDERLINE T ABNORMALITIES, INFERIOR LEADS BORDERLINE PROLONGED QT INTERVAL Electronic Signature: MOY WATTS MD [facility] Note. MICRO - Microbiology PROCEDURE: [...] Locations *1: This test was performed at: [address], [address] [place], [place] [address]-31-2024 Note. MICRO - Microbiology PROCEDURE: Blood Culture [...] Locations *1: This test was performed at: [address], [address] [place], [place] [address]-31-2024 History and physical note Date of Service [...] evaluated On arrival to the ER at [facility], patient was febrile 37.4, tachycardic 133, tachypneic 21, BP 90/76, was saturating 96% on room air. Labs done at [facility] 01/30/2024 revealed pO2 51 on the gases [...] prophylactically got a dose of ceftriaxone at [facility].We will continue with prophylactic ceftriaxone dose as [...] CINDY HERNANDEZ MD on 01/31/2024 08:06 AM [facility] [id number] Note ORIGINAL EXAMINATION: CT OF THE HEAD [...] Sign Date: 01/30/2024 10:16:46 PM Ordering Provider: [facility]09-03-2024 Note ORIGINAL EXAMINATION: ONE XRAY VIEW [...] Date: 01/30/2024 9:28:12 PM Ordering Provider: SAMY PAIZNEA [facility]09-03-2024 NoteAtrial flutter Left anterior fascicular block Borderline low voltage, extremity leads Abnormal R-wave progression, late transition Borderline ST depression, lateral leads Prolonged QT interval Baseline wander in lead(s) V3,V5 Electronic Signature: MD SAMY JONES MD 01/30/2024 21:01:46[facility] 03-13-2024 Hospital Discharge instructions Patient Education [...] get worse or if new symptoms appear. [id number] [employer] [place] [address], [place] [address]. All rights reserved. This information is not intended as a substitute for professional medical care. Always follow yourhealthcare professional's instructions. Follow Up Care 08/09/2023 21:02:01 With:GIRMA CORREA Address: [address] [facility] [place] [address]- [phone] Business (1) When:5-7 days Comments:Use warm compresses, Tylenol as discussed, return if any worsening or concerning symptoms. Follow-up closely with your doctor. [facility] 03-13-2024 Note Discharge Instructions Thank you [...] closely with your doctor. Where: [address] [facility] [place] [address]- [phone] Business (1) Allergies NKA Medications Please ask [...] get worse or if new symptoms appear. [phone] [employer]. [address] [place] [address], [place] [address]. All rights reserved. This information is not intended as a substitute for professional medical care. Always follow yourhealthcare professional's instructions. Additional Information VACCINATE! IT SAVES LIVES! Members of the community who have not yet received the COVID-19 vaccine and would like to receive it can visit one of [facility] vaccine clinics. There are many vaccine clinic locations within the [facility]. For locations and available times, please visit www.[email or web address].[place].gov/. It is important to note that some COVID mobile vaccine clinics are held outdoors and may be canceled in rainy or stormy conditions. To learn more about pediatric vaccinations (ages 5-11), we invite you to visit the [facility] webpage. [email or web address].[email or web address]/[email or web address]-[email or web address]-[email or web address] [email or web address].htmlTo learn more about the COVID-19 vaccine, we invite you to visit the CDC website for a list of frequently asked questions. https://www.cdc.gov/coronavirus/2019-ncov/vaccines/faq.html [facility] [employer] [facility] Patient Portal Access Instructions: Stay connected with your healthcare team and access your personal medical information anytime with the [facility] Patient Portal. If you would like a full copy of your medical records please contact the [facility] Medical Records Department Monday through Monday between 8a.m. and 4:30p.m. Please follow the directions below to access the portal: 1.Access the email account you provided upon registration to the hospital.2.Look for an invitation email from [facility].3.Open the email and access the invitation link: Accept Invitation to [facility]4.Fill in the required orr to create your account. Sign into [email or web address] with your username and password that you [...] you will allow to register on the [facility] Patient Portal for access to your information. You can also access the [facility] Patient Portal on the Local.com frida. Simply click on "Health Records" under "HealthData" and then click on the [facility] logo. [...] Call your local pharmacy or go to [email or web address] to find one close to you.3.Make use of household items: Use cat litter or old coffee grounds to dispose medications if other options arenot available. Mix your drugs with these household products, seal them in an airtight container andthrow it into the garbage. Call [facility]: [phone] to be sure your drugs can be [...] aware that I should contact my doctor. 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 Signature: Date/Time: Relationship to Patient: Witness Name/Signature: Date/Time: [facility]01-16-2024 Hospital Discharge instructions Patient Education 06/13/2023 [...] exposed to secondhand smoke. You may use rzmy-gvd-qwgdsxh medicine to control fever or pain, unless [...] loosen secretions in the nose and lungs. Bbht-tht-fyhsidb cough, cold, and sore-throat medicines will not [...] shortness of breath, or pain with breathing [phone] [employer]. [address] [place] [address], [place] [address]. All rights reserved. This information is not intended as a substitute for professional medical care. Always follow yourhealthcare professional's instructions. Follow Up Care 06/13/2023 00:01:18 With:GIRMA CORREA Address: [address] [facility] [place] [address]- [phone] Business (1) When:3-7 days Comments:Schedule appointment for [...] portal.Return to the ED if symptoms worsen. [facility] 01-16-2024 Note Discharge Instructions Thank you for allowing [facility] to assist you with your healthcare needs. [...] ED if symptoms worsen. Where: [address] [facility] [place] [address]- [phone] Business (1) Allergies NKA Medications Please ask [...] exposed to secondhand smoke. You may use zalm-fgz-oppjxtx medicine to control fever or pain, unless [...] loosen secretions in the nose and lungs. Zubv-epe-bgsqudy cough, cold, and sore-throat medicines will not [...] shortness of breath, or pain with breathing [phone] [employer]. [address] [place] [address]. All rights reserved. This information is not intended as a substitute for professional medical care. Always follow yourhealthcare professional's instructions. Additional Information VACCINATE! IT SAVES LIVES! Members of the community who have not yet received the COVID-19 vaccine and would like to receive it can visit one of [facility] vaccine clinics. There are many vaccine clinic locations within the [facility]. For locations and available times, please visit www.gettheshot.coronavirus.[place].gov/. It is important to note that some COVID mobile vaccine clinics are held outdoors and may be canceled in rainy or stormy conditions. To learn more about pediatric vaccinations (ages 5-11), we invite you to visit the [facility] webpage. https://www.[facility].org/pages/2668-Cvxbj-Ekfdgcodopi-Zlwurxuizw-Fpcep-Jlr stions.htmlTo learn more about the COVID-19 vaccine, we invite you to visit the CDC website for a list of frequently asked questions. https://www.cdc.gov/coronavirus/2019-ncov/vaccines/faq.html [facility] Patient Portal Access Instructions: Stay connected with your healthcare team and access your personal medical information anytime with the [facility] Patient Portal. If you would like a full copy of your medical records please contact the [facility] Medical Records Department Monday through Monday between 8a.m. and 4:30p.m. Please follow the directions below to access the portal: 1.Access the email account you provided upon registration to the [facility].2.Look for an invitation email from [facility].3.Open the email and access the invitation link: Accept Invitation to [facility]4.Fill in the required orr to create your account. Sign into www.[email or web address] with your username and password that you [...] you will allow to register on the [facility] Patient Portal for access to your information. You can also access the [facility] Patient Portal on the Local.com frida. Simply click on "Health Records" under "HealthDaDymant" and then click on the Sayah logo. HOW TO SAFELY DISPOSE OF PRESCRIPTION [...] Call your local pharmacy or go to http://weeSPIN/[email or web address] to find one close to you.3.Make use of household items: Use cat litter or old coffee grounds to dispose medications if other options arenot available. Mix your drugs with these household products, seal them in an airtight container andthrow it into the garbage. Call [facility]: [phone] to be sure your drugs can be [...] aware that I should contact my doctor. 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 Signature: Date/Time: Relationship to Patient: Witness Name/Signature: Date/Time: [facility]01-16-2024 Note ORIGINAL EXAMINATION: ONE XRAY VIEW [...] Sign Date: 06/13/2023 12:39:50 AM Ordering Provider: [facility]01-12-2024 Hospital Discharge instructions Patient Education 06/09/2023 20:03:33 Atrial Fibrillation, Vklh-xj-Fmcn Atrial Fibrillation Atrial fibrillation is a type [...] Follow these instructions at home: Medicines Take dxdm-ong-gqrfffv and prescription medicines only as told by [...] You have any signs of a stroke. "BE FAST" is an easy way to remember the [...] 02/21/2009 Document Revised: 07/19/2018 Document Reviewed: 07/06/2018 ScoreStream Patient Education 2020 Touch-Writer. Follow Up Care 06/06/2023 16:24:50 With[facility] Address: [address] [place], [place] [id number]- [phone] When: Unknown Comments:PLEASE CALL THIS OFFICE TO SCHEDULE A HOSPITAL FOLLOW UP APPOINTMENT With:MOY WATTS MD Address: [address] [place] [address] [address] [place], [place] [id number]- [phone] When:07/17/2023 15:15:00 Comments:THIS APPOINTMENT WILL BE WITH ZHOU ESPINOSA CNP [facility] 01-12-2024 Note Discharge Instructions Thank you for allowing [facility] to assist you with your healthcare needs. The following is importantdischarge information regarding your hospital visit. Your Care Team GIRMA CORREA Your Diagnosis Shortness of breath What to do next Scheduled Follow-Up Appointments Appointment Type When With Where Contact InformationPC OV 06/20/2023 02:30 PM EST GIRMA CORREA [facility] CV OV 07/17/2023 03:15 PM EST ZHOU ESPINOSA [facility] Follow Up Appointments Follow Up with MOY WATTS MD When 07/17/2023 03:15 PM EST Why: THIS APPOINTMENT WILL BE WITH ZHOU ESPINOSA CNP Where: [address] [place] [address] [address] [place] [id number]- [phone] Follow Up with GIRMA CORREA When Why: PLEASE CALL THIS OFFICE TO SCHEDULE A HOSPITAL FOLLOW UP APPOINTMENT Where: [address] [place], [place] [id number]- [phone] The Following Activity and Diet Have Been [...] day Refills: 2 Pickup at [id number] Changed FLUoxetine (FLUoxetine 10 mg oral capsule) 1 cap by mouth Once a day Pickup at [facility] #[id number] Unchanged allopurinol (allopurinol 100 mg oral tablet) [...] Daily at bedtime Pharmacy Information [facility] #[id number]: [address], [place] [id number] [phone] Please take this list to your next [...] may report side effects to FDA at 5-717-WSC-4866. What other drugs will affect dofetilide? Other drugs may interact with dofetilide, including prescription and gimk-iye-rvsxolc medicines, vitamins, and herbal products. Tell each [...] to ensure that the information provided by [employer] ('[employer]') is accurate, up-to-date, and complete, but no guarantee is made to that effect. Drug information contained herein may be time sensitive. [employer] information has been compiled for use by healthcare practitioners and consumers in the [place] and therefore [employer] does not warrant that uses outside of the [place] are appropriate, unless specifically indicated otherwise. [facility] drug information does not endorse drugs, diagnose patients or recommend therapy. [facility] [facility] drug information isan informational resource designed to [...] effective or appropriate for any given patient. [facility] does not assume any responsibility for any aspect of healthcare administered with the aid of information [facility] provides. The information contained herein is not intended to cover all possible uses, directions, precautions, warnings, drug interactions, allergic reactions, or adverse effects. If you have questions about the drugs you are taking, check with your doctor, nurse or pharmacist. Copyright 2018-6583 [employer] Version: 4.01. Revision Date: 09/09/2015. Education Materials [...] Follow these instructions at home: Medicines Take jvde-vgp-spzymau and prescription medicines only as told by [...] You have any signs of a stroke. "BE FAST" is an easy way to remember the [...] 02/21/2009 Document Revised: 07/19/2018 Document Reviewed: 07/06/2018 Elsevier Patient Education 2020 [employer]Stream Inc. Additional Information VACCINATE! IT SAVES LIVES! Members of the community who have not yet received the COVID-19 vaccine and would like to receive it can visit one of [facility] vaccine clinics. There are many vaccine clinic locations within the [facility]. For locations and available times, please visit https://[email or web address].[place].gov/. It is important to note that some COVID mobile vaccine clinics are held outdoors and may be canceled in rainy or stormy conditions. To learn more about pediatric vaccinations (ages 5-11), we invite you to visit the [employer] [facility] webpage. https://www.[employer].org/pages/8799-Ueifl-Rpltakmrgvq-Sjdxwbntmu-Lrqus-Gof stions.htmlTo learn more about the COVID-19 vaccine, we invite you to visit the CDC website for a list of frequently asked questions.https://www.cdc.gov/coronavirus/2019-ncov/vaccines/faq.html [facility] Patient Portal Access Instructions: Stay connected with your healthcare team and access your personal medical information anytime with the [facility] Patient Portal. Please follow the directions below to create your [facility] account: 1.Access the email account you provided upon registration to the hospital/physician office.2.Look for an invitation email from [facility].3.Open the email and access the invitation link: AcceptInvitation to [facility].4.Fill in the required orr to create your account. To access your account, visit [facility]. Click the blue button labeled "Access Patient Portal" and then log in with the username and password that you created in the steps above. You will be able to view your test results, lab results, a summary of your visits, upcoming appointments and more. There is also a convenient messaging option where you can send secure messages to your [facility]. In addition, you will have the ability to download any documents or summaries to your computer and/or send the information securely to a physician. Remember that your healthcare information is confidential, so carefully consider who you will allowto register on the [facility] for access to your information. You can also access the [facility] Patient Portal on the [facility] frida. Simply click on "Patient Portal" and then log into your account. If you would like to receive a full copy of your medical records, please contact the [facility] Medical Records Department by calling [phone], Monday through Monday between 8 a.m. and [...] Call your local pharmacy or go to http://Wagaduu.[employer]/9W3Xm8y to find one close to you.3.Make use of household items: Use cat litter or old coffee grounds to dispose medications if other options arenot available. Mix your drugs with these household products, seal them in an airtight container andthrow it into the garbage. Call [facility]: [phone] to be sure your drugs can be [...] COPY. Signatures Patient Education Materials Atrial Fibrillation, Ihnl-tt-Imog Medication Leaflets Selina My discharge plan and instructions have been reviewed and explained to me and I,CARLOS ALBERTO KELLEY understand my current condition and have read and understand these discharge instructions. I have received awritten copy of the plan/instructions. If I have questions, I am aware that I should contact my doctor. 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 Signature: Date/Time: Relationship to Patient: Witness Name/Signature: Date/Time: [id number] Discharge summary Date of Service 06/09/23 Discharge Diagnosis Other persistent atrial fibrillation (I48.19 - ICD-10-CM) Encounter for therapeutic drug level monitoring (Z51.81 - ICD-10-CM) Morbid (severe) obesity due to excess calories (E66.01 - ICD-10-CM) Hypertensive heart disease without heart failure (I11.9 - ICD-10-CM) Gastro-esophageal reflux disease without esophagitis (K21.9 - ICD-10-CM) skilled nursing (current) use of anticoagulants (Z79.01 - ICD-10-CM) Shortness of breath (R06.02 - ICD-10-CM) Additional Orders: Ordered: Communication Order (continuous),06/09/23 12:44:00 EST, ok to DC home after 5th dose of tikosyn this evening as long as QT is reviewed by art conservator fellow, Constant order Ordered: Discharge,06/09/23 12:44:00 EST, [...] qDay, # 30 cap(s), 2 Refill(s), [id number], 176, cm, 06/07/23 13:36:00 EST, Height, kg, 06/07/23 13:36:00 EST, Dosing Weight Ordered: Tikosyn 250 mcg oral capsule,Dose : 250 mcg = 1 cap(s), Oral, BID, # 60 cap(s), 2 Refill(s), Pharmacy: [facility] #[id number], 176, cm, 06/07/23 13:36:00 EST, Height, kg, [...] Where: [address] [facility] [place] [address]- [phone] Follow Up with GIRMA CORREA When Why: PLEASE CALL THIS OFFICE TO SCHEDULE A HOSPITAL FOLLOW UP APPOINTMENT Where: [address] [place] [address] [phone] Follow Up Appointments No qualifying data available. Follow Up Labs/Studies Discharge Labs No Follow-up Labs Discharge Studies No Follow-up Studies Discharge Diet Discharge Diet - Ordered -- Type of Diet: Cardiac, Sodium limit: 2 gm, 06/09/23 12:44:00 EST Discharge Activity No qualifying data available. 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 (Z79.01 - ICD-10-CM) Shortness of breath (R06.02 - ICD-10-CM) Additional Orders: Ordered: Communication Order (continuous),06/09/23 12:44:00 EST, ok to DC home after 5th dose of tikosyn this evening as long as QT is reviewed by art conservator fellow, Constant order Ordered: Discharge,06/09/23 12:44:00 EST, [...] qDay, # 30 cap(s), 2 Refill(s), Pharmacy: [facility] #[id number], 176, cm, 06/07/23 13:36:00 EST, Height, kg, 06/07/23 13:36:00 EST, Dosing Weight Ordered: Tikosyn 250 mcg oral capsule,Dose : 250 mcg = 1 cap(s), Oral, BID, # 60 cap(s), 2 Refill(s), Pharmacy: [facility] #[id number], 176, cm, 06/07/23 13:36:00 EST, Height, kg, [...] When 07/07/2023 01:00 PM EST [facility] [address] [facility] [address] [facility] [place] [address]- [phone] Follow Up with GIRMA CORREA When Why: PLEASE CALL THIS OFFICE TO SCHEDULE A HOSPITAL FOLLOW UP APPOINTMENT Where: [address] [place] [address]- [phone] Follow Up Appointments No qualifying data available. Follow Up Labs/Studies Discharge Labs No Follow-up Labs Discharge Studies No Follow-up Studies Discharge Diet Discharge Diet - Ordered -- Type of Diet: Cardiac, Sodium limit: 2 gm, 06/09/23 12:44:00 EST Discharge Activity No qualifying data available. Condition on Discharge stable Discharge Disposition home Digitally Signed by AMELIA RENAE MD on 06/09/2023 12:53 PM [facility] [id number] NoteSINUS RHYTHM LEFT AXIS DEVIATION LOW VOLTAGE, PRECORDIAL LEADS PROLONGED QT INTERVAL POOR R-WAVE PROGRESSION Electronic Signature: SADE STRAUSS MD 06/09/2023 09:53:23[facility] 01-11-2024 Cardiology Progress note Date of [...] AMELIA RENAE MD on 06/08/2023 03:03 PM [facility] [id number] Cardiology Progress note Date of Service 06/08/23 [...] AMELIA RENAE MD on 06/08/2023 03:03 PM [facility] [id number] NoteSINUS RHYTHM LAD, CONSIDER LEFT ANTERIOR FASCICULAR BLOCK LOW VOLTAGE, PRECORDIAL LEADS BORDERLINE PROLONGED QT INTERVAL Poor R wave progression Electronic Signature: SADE STRAUSS MD 06/09/2023 09:53:37[facility] 01-10-2024 NoteSINUS RHYTHM BORDERLINE IVCD WITH LAD LOW VOLTAGE, PRECORDIAL LEADS CONSIDER ANTERIOR INFARCT Electronic Signature: SADE STRAUSS MD 06/08/2023 09:48:12[facility] 01-10-2024 History and physical note Date [...] 107 ms, QT interval approximately 450 ms. MN interval 184 ms. Renal function, electrolytes pending. [...] AMELIA RENAE MD on 06/07/2023 04:29 PM [facility] HospitalYbzmkdvy66-20-4078 NoteSINUS RHYTHM LAD, CONSIDER LEFT ANTERIOR FASCICULAR BLOCK LOW VOLTAGE, PRECORDIAL LEADS Electronic Signature: SADE STRAUSS MD 06/08/2023 09:47:58[facility] 01-10-2024 History and physical note Date [...] 107 ms, QT interval approximately 450 ms. MN interval 184 ms. Renal function, electrolytes pending. [...] AMELIA RENAE MD on 06/07/2023 04:29 PM [facility] [id number] Evaluation + Plan noteExtracted from: Title:History and [...] Appointment Date:06/20/2023 02:30:00 PM Scheduled Provider:GIRMA CORREA Location:[facility] Appointment Type:PC OV Appointment Date:07/17/2023 03:15:00 PM Scheduled Provider:ZHOU ESPINOSA [facility] Appointment Type:CV OV Future Scheduled Tests Laboratory* Basic Metabolic Panel 04/01/23 * A1C Hemoglobin 06/09/23 * Lipid Profile 06/09/23 * Complete Metabolic Panel 06/09/23 [facility] 01-10-2024 NoteSINUS RHYTHM MARKEDLY POSTERIOR QRS AXIS LOW VOLTAGE, PRECORDIAL LEADS BORDERLINE PROLONGED QT INTERVAL Electronic Signature: SADE STRAUSS MD 06/08/2023 09:47:38[facility] 12-08-2023 Hospital Discharge instructions Patient Education [...] in vomit, stools (black or red color) 8893-2041 The [employer]. [address] [facility], [place] [address]. All rights reserved. This information is not [...] fainting Blood in your stool or urine 7236-6178 [employer]. [address] [place] [address], [place] [address]. All rights reserved. This information is not [...] will help ease pain. You may use xobv-ghx-wqctpgd pain medicine such as acetaminophen or ibuprofen [...] suddenly or lasts more than an hour 4329-4030 [employer]. [address] [place] [address], [place] [address]. All rights reserved. This information is not intended as a substitute for professional medical care. Always follow yourhealthcare professional's instructions. Follow Up Care 05/05/2023 17:11:14 With:GIRMA CORREA Address: [address] [facility] [place] [address]- [phone] Business (1) When:5-7 days Comments:Follow-up as needed if symptoms or not improving.Limit activity as tolerated.Ice/cold compresses topainful areas.Use Tylenol, Advil or Aleve for pain as needed.Use [place] as prescribed for severe pain as needed.Take 10 deep breaths on the incentive stridor every hour while awake for the next week as advised.Return to the ED if symptoms worsen. [facility] 12-08-2023 Note Discharge Instructions Thank you for allowing [facility] to assist you with your healthcare needs. [...] or Aleve for pain as needed. Use [place] as prescribed for severe pain as needed. Take 10 deep breaths on the incentive stridor every hour while awake for the next week as advised. Return to the ED if symptoms worsen. Where: [address] [facility] [place] [address]- [phone] Business (1) Allergies NKA Medications Please ask your primary doctor or pharmacist before taking any other medication not listed, including over the counter drugs, herbal medications, vitamins and or supplements as they may interact [facility] medications. What How Much When Why Instructions Last Dose New acetaminophen-hydrocodone ([place] 325- 5 mg oral tablet) 1 tab(s) [...] cancer screening As directed by provider at [facility]. Unchanged rivaroxaban (Xarelto 20 mg oral [...] may report side effects to FDA at 8-594-PTJ-0289. What other drugs will affect acetaminophen and [...] affect acetaminophen and hydrocodone, including prescription and hpav-rtx-ijrlgwg medicines, vitamins, and herbal products. Not all [...] to ensure that the information provided by [employer] ('[employer]') is accurate, up-to-date, and complete, but no guarantee is made to that effect. Drug information contained herein may be time sensitive. [employer] information has been compiled for use by healthcare practitioners and consumers in the [place] and therefore [employer] does not warrant that uses outside of the [place] are appropriate, unless specifically indicated otherwise. [employer] drug information does not endorse drugs, diagnose patients or recommend therapy. [employer] drug information isan informational resource designed to [...] effective or appropriate for any given patient. [employer] does not assume any responsibility for any aspect of healthcare administered with the aid of information [employer] provides. The information contained herein is not intended to cover all possible uses, directions, precautions, warnings, drug interactions, allergic reactions, or adverse effects. If you have questions about the drugs you are taking, check with your doctor, nurse or pharmacist. Copyright 7716-5417 [employer] Version: 19.. Revision Date: 01/16/2023. Education Materials [...] in vomit, stools (black or red color) 1325-5784 The [employer]. [address] [place] [address]. All rights reserved. This information is not [...] fainting Blood in your stool or urine 8569-8[address] The [employer]. [address] [place] [address]. All rights reserved. This information is not [...] will help ease pain. You may use gfgb-mgg-lfhkxgb pain medicine such as acetaminophen or ibuprofen [...] suddenly or lasts more than an hour 2546-1046 The [employer]. [address] [place] [address], [place] [address]. All rights reserved. This information is not intended as a substitute for professional medical care. Always follow yourhealthcare professional's instructions. Additional Information VACCINATE! IT SAVES LIVES! Members of the community who have not yet received the COVID-19 vaccine and would like to receive it can visit one of [facility] vaccine clinics. There are many vaccine clinic locations within the [facility]. For locations and available times, please visit www.gettheshot.coronavirus.[place].gov/. It is important to note that some COVID mobile vaccine clinics are held outdoors and may be canceled in rainy or stormy conditions. To learn more about pediatric vaccinations (ages 5-11), we invite you to visit the [facility] webpage. https://www.[facility].org/pages/8617-Dzoaa-Myjghpwzxqr-Pxtpyhcghq-Rvduf-Imk stions.htmlTo learn more about the COVID-19 vaccine, we invite you to visit the CDC website for a list of frequently asked questions. https://www.cdc.gov/coronavirus/2019-ncov/vaccines/faq.html [facility] [employer] Patient Portal Access Instructions: Stay connected with your healthcare team and access your personal medical information anytime with the [facility] Patient Portal. If you would like a full copy of your medical records please contact the [facility] Medical Records Department Monday through Monday between 8a.m. and 4:30p.m. Please follow the directions below to access the portal: 1.Access the email account you provided upon registration to the [facility].2.Look for an invitation email from [facility].3.Open the email and access the invitation link: Accept Invitation to [facility]4.Fill in the required orr to create your account. Sign into www.Storactive with your username and password that you [...] you will allow to register on the [facility] Patient Portal for access to your information. You can also access the [facility] Patient Portal on the Local.com frida. Simply click on "Health Records" under "HealthData" and then click on the [facility] logo. HOW TO SAFELY DISPOSE OF PRESCRIPTION [...] Call your local pharmacy or go to http://bit.[employer]/3R7Zv4n to find one close to you.3.Make use of household items: Use cat litter or old coffee grounds to dispose medications if other options arenot available. Mix your drugs with these household products, seal them in an airtight container andthrow it into the garbage. Call [facility]: [phone] to be sure your drugs can be [...] aware that I should contact my doctor. 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 Signature: Date/Time: Relationship to Patient: Witness Name/Signature: Date/Time: [facility]12-08-2023 Note ORIGINAL EXAMINATION: 2 XRAY VIEWS [...] Sign Date: 05/05/2023 9:08:30 PM Ordering Provider: [facility]12-08-2023 Note ORIGINAL EXAMINATION: ONE XRAY VIEW [...] Sign Date: 05/05/2023 9:17:04 PM Ordering Provider: [facility]11-06-2023 Note * Exam Date Time Procedure Performing Provider Status 04/03/23 9:43 AM Echocardiogram, Adult (AOH) Auth (Verified) [facility] 07-28-2023 Hospital Discharge instructions Patient Education [...] Document Reviewed: 05/16/2014 ExitCare Patient Information 2015 [employer]. This information is not intended to replace [...] before eating solid foods. General instructions Take qgot-xjc-bvhwecy and prescription medicines only as told by [...] 09/04/2016 Document Revised: 08/13/2018 Document Reviewed: 09/04/2016 [employer]Stream Patient Education 2020 Touch-Writer. Follow Up Care 12/07/2022 09:52:07 With:ZHOU ESPINOSA Address: [address] [place] [address] [address] [facility] [place] [address] [phone] When: Unknown Comments:Follow-up as scheduled [facility] 07-28-2023 Note Discharge Instructions Thank you for allowing [facility] to assist you with your healthcare needs. The following is importantdischarge information regarding your hospital visit. Your Care Team GIRMA CORREA Your Diagnosis AF (atrial fibrillation) What to do next Scheduled Follow-Up Appointments Appointment Type When With Where Contact InformationPC OV 02/07/2023 02:30 PM EDT GIRMA CORREA [facility] Follow Up Appointments Follow Up with ZHOU ESPINOSA When Why: Follow-up as scheduled Where: [address] [facility] [place] [address] [phone] Allergies NKA Medications Please ask your primary doctor or pharmacist before taking any other medication not listed, including over the counter drugs, herbal medications, vitamins and or supplements as they may interact withyour home medications. What How Much When Instructions Last Dose New losartan (losartan 100 mg oral tablet) 1 tab(s) by mouth Once a day Refills: 6 Pickup at [id number] Changed metoprolol (Toprol-XL 50 mg oral tablet, extended release) 1 tab(s) by mouth Two (2) times a day Pickup at [id number] Unchanged allopurinol (allopurinol 100 mg oral tablet) [...] a day Duration: 14 Days Pharmacy Information [facility] #[id number]: [address] [place], [place] [phone] What How Much When Comments Stop Taking [...] 05/15/2006 Document Revised: 05/01/2013 Document Reviewed: 05/16/2014 [facility] Patient Information 2015 [employer]. This information is not intended to replace [...] before eating solid foods. General instructions Take gnxj-zxm-mjephid and prescription medicines only as told by [...] Document Reviewed: 09/04/2016 Elsevier Patient Education 2020 [employer] Additional Information VACCINATE! IT SAVES LIVES! Members of the community who have not yet received the COVID-19 vaccine and would like to receive it can visit one of [facility] vaccine clinics. There are many vaccine clinic locations within the [facility]. For locations and available times, please visit https://[email or web address].gov/. It is important to note that some COVID mobile vaccine clinics are held outdoors and may be canceled in rainy or stormy conditions. To learn more about pediatric vaccinations (ages 5-11), we invite you to visit the [facility] webpage. https://www.[facility].org/pages/6443-Erxlk-Xhoajnqkivi-Tquwotrfeh-Efdxz-Ovx stions.htmlTo learn more about the COVID-19 vaccine, we invite you to visit the CDC website for a list of frequently asked questions.https://www.cdc.gov/coronavirus/2019-ncov/vaccines/faq.html [facility] Patient Portal Access Instructions: Stay connected with your healthcare team and access your personal medical information anytime with the [facility] Patient Portal. Please follow the directions below to create your [facility] account: 1.Access the email account you provided upon registration to the hospital/physician office.2.Look for an invitation email from [facility].3.Open the email and access the invitation link: AcceptInvitation to [facility].4.Fill in the required orr to create your account. To access your account, visit Storactive/G4Shart. Click the blue button labeled "Access Patient Portal" and then log in with the username and password that you created in the steps above. You will be able to view your test results, lab results, a summary of your visits, upcoming appointments and more. There is also a convenient messaging option where you can send secure messages to your p NeuroPacevider. In addition, you will have the ability to download any documents or summaries to your computer and/or send the information securely to a physician. Remember that your healthcare information is confidential, so carefully consider who you will allowto register on the [facility] Patient Portal for access to your information. You can also access the [facility] Patient Portal on the RevoLazewhere frida. Simply click on "Patient Portal" and then log into your account. If you would like to receive a full copy of your medical records, please contact the [facility] Medical Records Department by calling [phone], Monday through Monday between 8 a.m. and [...] Call your local pharmacy or go to [email or web address] to find one close to you.3.Make use of household items: Use cat litter or old coffee grounds to dispose medications if other options arenot available. Mix your drugs with these household products, seal them in an airtight container andthrow it into the garbage. Call [facility]: [phone] to be sure your drugs can be [...] aware that I should contact my doctor. 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 Signature: Date/Time: Relationship to Patient: Witness Name/Signature: Date/Time: [facility]07-28-2023 Anesthesiology Consult note Patient: CARLOS ALBERTO [...] by BRAULIO WRIGHT on 12/23/2022 07:23 AM [facility]07-28-2023 Anesthesiology Consult note Patient: CARLOS ALBERTO KELLYE Age: 52 years Sex: Male : 1970 Associated Diagnoses: None Author: BRAULIO WRIGHT APRN-DOUGH MIXER HELPER Preoperative Information Time of last food or [...] Problem list: Medical Anxiety / SNOMED CT 51071176 / Confirmed Atopic dermatitis / SNOMED CT 17477032 / Confirmed BMI 45.0-49.9, adult / SNOMED CT 9553946998 / Confirmed Diabetes mellitus / SNOMED CT 451000976 / Confirmed Hypertension / SNOMED CT 3947272738 / Confirmed Insomnia / SNOMED CT 795666133 / Confirmed Morbid obesity / SNOMED CT 588871501 / Confirmed Chewing tobacco nicotine dependence / SNOMED CT 31958689 / Confirmed Obstructive sleep apnea / SNOMED CT 215343959 / Confirmed Screening for ischemic heart disease / SNOMED CT 366426552 / Confirmed Persistent atrial fibrillation / SNOMED CT 0929444954 / Confirmed Prediabetes / SNOMED CT 2108248653 / Confirmed, Active Problems (16) Anxiety Atopic [...] History: History is unknown. Procedure history: Elbow ([id number]). 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 Physical Examination Vital Signs 12/23/2022 6:34 EDT Temperature Temporal Artery 35.3 DegC Peripheral Pulse Rate 85 bpm Respiratory Rate 20 br/min Systolic Blood Pressure Non-Invasive 103 mmHg Diastolic Blood Pressure Non-Invasive 76 mmHg Vital Signs(last 24 hrs) Last Charted Resp Rate 20 br/min (DEC 23 06:34) JWP571 mmHg (DEC 23 06:34) DBP76 mmHg (DEC 23 06:34) Measurements from flowsheet : Measurements 12/23/2022 6:37 EDT Height 175.3 cm [place] Body Weight 70.74 kg 12/23/2022 6:34 EDT Height 175.3 cm Admission Weight 144 kg [place] Body Weight 70.74 kg Admission Body Mass [...] Surgeon SN - CAt - Role Performed Manager Process Improvement 1 SN - CAt - 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 12/23/2022 6:49 EDT Wrist Left 12/23/2022 20 [...] Person #1 We May Share YAW OSPINA [phone] Designated Person #1 Relationship Sibling Height 175.3 cm [place] Body Weight 70.74 kg Status N/A Sensory [...] evident Teaching Method Explanation Preferred Spoken Language Maltese Preferred Written Language Maltese Information Given by Patient Patient's Current Physicians Patient's Current Physicians Discharge To, Anticipated Home independently Prev Test Positive/Diagnosis w/COVID-19 No Current Quarantine/Isolated any Illness No Any Contact with Sick Animals/Birds No Traveled Anywhere in Last 30 Days No N/A Personal Devices, Patient Valuables None Admission Note-Nursing Procedure/Therapy Intake 12/23/2022 6:34 EDT Height 175.3 cm Admission Weight 144 kg [place] Body Weight 70.74 kg Admission Body Mass [...] Ordered (In Progress) . Assessment and Plan [place] [employer] Anesthesiologists (ASA) physical status classification: Class III. Anesthetic Preoperative Plan Anesthetic technique: MAC. Informed consent: signed by patient. Digitally Signed by BRAULIO WRIGHT on 12/23/2022 07:21 AM [facility]06-01-2023 Hospital Discharge instructions Patient Education 10/27/2022 [...] Swelling, pain or redness in one leg 8652-2399 [employer] [place] [address]. All rights reserved. This information is not [...] very fast heart rate Loss of consciousness 4311-[address] [employer] [place] [address]. All rights reserved. This information is not intended as a substitute for professional medical care. Always follow yourhealthcare professional's instructions. Follow Up Care 10/27/2022 05:02:35 With:GIRMA CORREA Address: [address] [facility] [place] [address]- [phone] Business (1) When:2-4 days Comments:Follow close with your doctor, continue medications, return if any worsening or concerning symptoms. [facility] 06-01-2023 Note Discharge Instructions Thank you for allowing [facility] to assist you with your healthcare needs. [...] worsening or concerning symptoms. Where: [address] [facility] [place] [address]- [phone] Business (1) Allergies NKA Medications Please ask [...] Swelling, pain or redness in one leg 4232-0[address] [employer] [place] [address], [place] [address]. All rights reserved. This information is not [...] very fast heart rate Loss of consciousness 5432-[address] [employer] [place] [address]. All rights reserved. This information is not intended as a substitute for professional medical care. Always follow yourhealthcare professional's instructions. Additional Information VACCINATE! IT SAVES LIVES! Members of the community who have not yet received the COVID-19 vaccine and would like to receive it can visit one of [facility] vaccine clinics. There are many vaccine clinic locations within the [facility]. For locations and available times, please visit www.gettheshot.coronavirus.[place].gov/. It is important to note that some COVID mobile vaccine clinics are held outdoors and may be canceled in rainy or stormy conditions. To learn more about pediatric vaccinations (ages 5-11), we invite you to visit the [facility] webpage. https://www.[facility].org/pages/8431-Vqwwf-Ylytkqhuubc-Xnnotdgheo-Nauwu-Ztd stions.htmlTo learn more about the COVID-19 vaccine, we invite you to visit the CDC website for a list of frequently asked questions. https://www.cdc.gov/coronavirus/2019-ncov/vaccines/faq.html [facility] Patient Portal Access Instructions: Stay connected with your healthcare team and access your personal medical information anytime with the [facility] Patient Portal. If you would like a full copy of your medical records please contact the [facility] Medical Records Department Monday through Monday between 8a.m. and 4:30p.m. Please follow the directions below to access the portal: 1.Access the email account you provided upon registration to the [facility].2.Look for an invitation email from [facility].3.Open the email and access the invitation link: Accept Invitation to [facility]4.Fill in the required orr to create your account. Sign into www.[email or web address] with your username and password that you [...] you will allow to register on the [facility] Patient Portal for access to your information. You can also access the [facility] Patient Portal on the Local.com frida. Simply click on "Health Records" under "HealthData" and then click on the Sayah logo. HOW TO SAFELY DISPOSE OF PRESCRIPTION [...] Call your local pharmacy or go to [email or web address] [email or web address] to find one close to you.3.Make use of household items: Use cat litter or old coffee grounds to dispose medications if other options arenot available. Mix your drugs with these household products, seal them in an airtight container andthrow it into the garbage. Call [facility]: [phone] to be sure your drugs can be [...] aware that I should contact my doctor. 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 Signature: Date/Time: Relationship to Patient: Witness Name/Signature: Date/Time: [facility]06-01-2023 Note ORIGINAL EXAMINATION: ONE XRAY VIEW [...] 10/27/2022 6:14:45 AM Ordering Provider: OLLIE BROOKE [facility]06-01-2023 Note ORIGINAL EXAMINATION: ONE XRAY VIEW [...] Date: 10/27/2022 6:14:45 AM Ordering Provider: [facility] [id number] Hospital Discharge instructions Patient Education 10/25/2022 01:25:48 [...] your body to your neck and face. 9373-2839 [employer]. [address] [place] [address]. All rights reserved. This information is not [...] vision Extreme drowsiness, confusion, dizziness, or fainting 8296-6996 [employer] [place] [address]. All rights reserved. This information is not intended as a substitute for professional medical care. Always follow [facility] professional[facility] instructions. 10/25/2022 01:25:29 Chest Pain, Uncertain [...] Swelling, pain or redness in one leg 0098-4215 [employer]. [address] [place] [address]. All rights reserved. This information is not [...] veins, fluid leaks out into the tissues. Kasson then causes that fluid to move to [...] away Feeling much more tired than usual 2763-5282 [employer]. [address] [place] [address]. All rights reserved. This information is not intended as a substitute for professional medical care. Always follow yourhealthcare professional's instructions. Follow Up Care 10/24/2022 23:09:33 With:Call Physician Referral Address:Unknown When:2-4 days Comments:Call for referral to establish a primary care doctor you can see on a regular basis. With:SADE STRAUSS Address: [address] [place] [address] [address] [facility] [place] [address] [phone] Business (1) When:2-4 days Comments:Schedule an appointment to establish a physicist light and optics you can see on a regular basis.Double your doseof Lasix from 20 mg once a day to 20 mg twice a day.Continue all other routine medications including the ones you were recently prescribed from [facility].Use potassium supplement and sleep aid (trazodone) as prescribed.Return to the ED if symptoms worsen. [facility] 05-30-2023 Note Discharge Instructions Thank you for allowing [facility] to assist you with your healthcare needs. [...] Why: Schedule an appointment to establish a physicist light and optics you can see on a regular basis. Double your dose of Lasix from 20 mg once a day to 20 mg twice a day. Continue all other routine medications including the ones you were recently prescribed from [facility]. Use potassium supplement and sleep aid (trazodone) as prescribed. Return to the ED if symptoms worsen. Where: [address] [facility] [address] [facility] [place] [address]- [phone] Business (1) Allergies NKA Medications Please ask [...] may report side effects to FDA at 1-167-NJJ-8740. What other drugs will affect potassium chloride? Tell your doctor about all your other medicines, especially: medicine to prevent organ transplant rejection; a diuretic or 'water pill'; or heart or blood pressure medication. This list is not complete. Other drugs may affect potassium chloride, including prescription and npwt-cjy-tfruple medicines, vitamins, and herbal products. Not all [...] to ensure that the information provided by [employer]') is accurate, up-to-date, and complete, but no guarantee is made to that effect. Drug information contained herein may be time sensitive. [employer] information has been compiled for use by healthcare practitioners and consumers in the [place] and therefore [employer] does not warrant that uses outside of the [place] are appropriate, unless specifically indicated otherwise. [employer] drug information does not endorse drugs, diagnose patients or recommend therapy. [employer] drug information isan informational resource designed to [...] effective or appropriate for any given patient. [facility] does not assume any responsibility for any aspect of healthcare administered with the aid of information [employer] provides. The information contained herein is not intended to cover all possible uses, directions, precautions, warnings, drug interactions, allergic reactions, or adverse effects. If you have questions about the drugs you are taking, check with your doctor, nurse or pharmacist. Copyright 3922-6516 [facility] TripLingo. Version: 14.. Revision Date: 10/24/2019. trazodone (TRAZ oh done) Desroxyel What is the most important information I [...] may report side effects to FDA at 8-425-CSM-3926. What other drugs will affect trazodone? Using [...] drugs may affect trazodone. This includes prescription fybuxgb-oku-bkwhdek medicines, vitamins, and herbal products. Not all [...] to ensure that the information provided by [employer]') is accurate, up-to-date, and complete, but no guarantee is made to that effect. Drug information contained herein may be time sensitive. [employer] information has been compiled for use by healthcare practitioners and consumers in the [place] and therefore [employer] does not warrant that uses outside of the [place] are appropriate, unless specifically indicated otherwise. [employer] drug information does not endorse drugs, diagnose patients or recommend therapy. [employer] drug information isan informational resource designed to [...] effective or appropriate for any given patient. [employer] does not assume any responsibility for any aspect of healthcare administered with the aid of information [employer] provides. The information contained herein is not intended to cover all possible uses, directions, precautions, warnings, drug interactions, allergic reactions, or adverse effects. If you have questions about the drugs you are taking, check with your doctor, nurse or pharmacist. Copyright 4821-1735 [employer] Version: 10. Revision Date: 11/09/2020. Education Materials Treating Insomnia [...] your body to your neck and face. 2847-30[address] [employer]. [address] [place] [address]. All rights reserved. This information is not [...] vision Extreme drowsiness, confusion, dizziness, or fainting 3857-7714 [employer]. [address] [place] [address]. All rights reserved. This information is not [...] Swelling, pain or redness in one leg 8404-9134 The [employer]. [address] [place] [address]. All rights reserved. This information is not [...] veins, fluid leaks out into the tissues. Kasson then causes that fluid to move to [...] away Feeling much more tired than usual 2528-2353 The [employer]. [address] [place] [address]. All rights reserved. This information is not intended as a substitute for professional medical care. Always follow yourhealthcare professional's instructions. Additional Information VACCINATE! IT SAVES LIVES! Members of the community who have not yet received the COVID-19 vaccine and would like to receive it can visit one of [facility] vaccine clinics. There are many vaccine clinic locations within the [facility]. For locations and available times, please visit www.gettheshot.coronavirus.[place].gov/. It is important to note that some COVID mobile vaccine clinics are held outdoors and may be canceled in rainy or stormy conditions. To learn more about pediatric vaccinations (ages 5-11), we invite you to visit the [facility] webpage. https://www.[facility].org/pages/7719-Ibghg-Eoyecdvnjue-Dmtfejbtyk-Cbeeq-Aui stions.htmlTo learn more about the COVID-19 vaccine, we invite you to visit the CDC website for a list of frequently asked questions. https://www.cdc.gov/coronavirus/2019-ncov/vaccines/faq.html [facility] Patient Portal Access Instructions: Stay connected with your healthcare team and access your personal medical information anytime with the [facility] Patient Portal. If you would like a full copy of your medical records please contact the [facility] Medical Records Department Monday through Monday between 8a.m. and 4:30p.m. Please follow the directions below to access the portal: 1.Access the email account you provided upon registration to the [facility].2.Look for an invitation email from [facility].3.Open the email and access the invitation link: Accept Invitation to [facility]4.Fill in the required orr to create your account. Sign into www.Storactive with your username and password that you [...] you will allow to register on the [facility] Patient Portal for access to your information. You can also access the [facility] Patient Portal on the Digital Fortress. Simply click on "Health Records" under "HealthDaDymant" and then click on the Larry logo. [...] Call your local pharmacy or go to [email or web address] [email or web address] to find one close to you.3.Make use of household items: Use cat litter or old coffee grounds to dispose medications if other options arenot available. Mix your drugs with these household products, seal them in an airtight container andthrow it into the garbage. Call [facility]: [phone] to be sure your drugs can be [...] aware that I should contact my doctor. 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 Signature: Date/Time: Relationship to Patient: Witness Name/Signature: Date/Time: [facility]05-30-2023 Note ORIGINAL EXAMINATION: CTA OF THE [...] aortic dissection. Lungs/pleura: Small bilateral pleural effusions quill layer dependently. There is more fluid on [...] Sign Date: 10/25/2022 1:09:48 AM Ordering Provider: [facility]05-30-2023 Note ORIGINAL EXAMINATION: CTA OF THE CHEST [...] aortic dissection. Lungs/pleura: Small bilateral pleural effusions quill layer dependently. There is more fluid on [...] Sign Date: 10/25/2022 1:09:48 AM Ordering Provider: [facility]05-29-2023 Note ORIGINAL EXAMINATION: ONE XRAY VIEW [...] Sign Date: 10/24/2022 11:56:09 PM Ordering Provider: [facility]05-29-2023 Note ORIGINAL EXAMINATION: ONE XRAY VIEW OF [...] Sign Date: 10/24/2022 11:56:09 PM Ordering Provider: DEM[facility]05-28-[address] Clemens [facility] October 23, 2022 10:40am Note Date/Time October 23, 2022 6:48a m [facility] Medical Records Department [address] [place] [address] Emergency Department Summary 10/23/22 MR#: [id number] Acct: [id number] Name: CARLOS ALBERTO KELLEY Jr. Rep #:[id number] : 1970 52 From: Jameel Brown DO PCP: ZACARAIS COHN Status:REG ER Location: ED HPI History [...] gets short of breath. Patient states his physicist light and optics is a Dr. Barr out [facility]. [facility] Medical History (Updated 10/23/22 @ 06:09 [...] IV and his heart rate is now [id number]. CBC shows no leukocytosis. Hemoglobin macular stable. [...] % (Auto) 67.9 Lymph % (Auto) 19.0 [place] % (Auto) 9.6 Eos % (Auto) 2.4 [...] EACH EYE QHS Primary Care Provider: Care Physician,Maribel Primary Referrals: Ollie Bright MD [Non-Staff] - What to do if you have Problems For any increased pain, shortness of breath, bleeding, nausea or vomiting, chestpain, or any unexpected problems, contact your Primary Care Provider. Call [facility] ([phone]) or report to the closest Emergency Room. [...] and atrial fibrillation. He has relocated from [place]. He does not have a local physicist light and optics. Patient has not taken his Xarelto for [...] (if applicable): cc: ZACARIAS COHN ~* Signed [facility] Work Phone: [phone]) 641-755502-17-2023 Hospital Discharge instructions Patient Education 07/15/2022 21:17:24 [...] temperature. Use toothpaste made for sensitive teeth. Towanda gently up and down instead of sideways. Brushing sideways can wear away root surfaces if they are exposed. If your tooth is chipped or cracked, or if there is a large open cavity, put oil of cloves directlyon the tooth to relieve pain. You can buy oil of cloves at drugstores. Some pharmacies carry an zsdw-xrr-rrtjowc "toothache kit." This contains a paste that you can put on the exposed tooth to make it less sensitive. Put a cold pack on your jaw over the sore area to help reduce pain. You may use vdcb-wgy-lxrspxo medicine to ease pain, unless your doctor [...] healthcare provider Pus drains from the tooth [phone] [employer] [place] [address], [place] [address]. All rights reserved. This information is not intended as a substitute for professional medical care. Always follow yourhealthcare professional's instructions. Follow Up Care 07/15/2022 20:40:26 With:Dental Referral List Address: When:2-4 days [facility] 02-17-2023 Note Discharge Instructions Thank you for allowing [facility] to assist you with your healthcare needs. [...] When Why Instructions Last Dose New acetaminophen-hydrocodone ([place] 325- 5 mg oral tablet) 1 tab(s) [...] temperature. Use toothpaste made for sensitive teeth. Towanda gently up and down instead of sideways. Brushing sideways can wear away root surfaces if they are exposed. If your tooth is chipped or cracked, or if there is a large open cavity, put oil of cloves directlyon the tooth to relieve pain. You can buy oil of cloves at [facility]. Some pharmacies carry an bmwd-axy-phaitgm "toothache kit." This contains a paste that you can put on the exposed tooth to make it less sensitive. Put a cold pack on your jaw over the sore area to help reduce pain. You may use gqae-dcj-mscwzzm medicine to ease pain, unless your doctor [...] healthcare provider Pus drains from the tooth [phone] [employer] [place] [address]. All rights reserved. This information is not intended as a substitute for professional medical care. Always follow yourhealthcare professional's instructions. Additional Information VACCINATE! IT SAVES LIVES! Members of the community who have not yet received the COVID-19 vaccine and would like to receive it can visit one of [facility] vaccine clinics. There are many vaccine clinic locations within the [facility]. For locations and available times, please visit [email or web address]/. It is important to note that some COVID mobile vaccine clinics are held outdoors and may be canceled in rainy or stormy conditions. To learn more about pediatric vaccinations (ages 5-11), we invite you to visit the [facility] webpage. https://www.[email or web address].org/pages/5186-Chtqi-Stlvolmhgno-Ohnvxmjnvb-Oqphz-Oyf stions.htmlTo learn more about the COVID-19 vaccine, we invite you to visit the CDC website for a list of frequently asked questions. https://www.cdc.gov/coronavirus/2019-ncov/vaccines/faq.html [facility] Patient Portal Access Instructions: Stay connected with your healthcare team and access your personal medical information anytime with the [facility] Patient Portal. If you would like a full copy of your medical records please contact the [facility] Medical Records Department Monday through Monday between 8a.m. and 4:30p.m. Please follow the directions below to access the portal: 1.Access the email account you provided upon registration to the [facility].2.Look for an invitation email from [facility].3.Open the email and access the invitation link: Accept Invitation to [facility]4.Fill in the required orr to create [...] you will allow to register on the [facility] Patient Portal for access to your information. You can also access the [facility] Patient Portal on the [employer]. Simply click on "Health Records" under "HealthData" and then click on the Larry logo. [...] Call your local pharmacy or go to [email or web address] to find one close to you.3.Make use of household items: Use cat litter or old coffee grounds to dispose medications if other options arenot available. Mix your drugs with these household products, seal them in an airtight container andthrow it into the garbage. Call [facility]: [phone] to be sure your drugs can be [...] aware that I should contact my doctor. 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 Signature: Date/Time: Relationship to Patient: Witness Name/Signature: Date/Time: [facility]02-13-2023 Hospital Discharge instructions Patient Education 07/11/2022 [...] alternate ice and heat. You may use laxp-mbt-jtywqfo pain medicine to control pain, unless another [...] hand becomes cold, blue, numb, or tingly [phone] [employer]. [address] [place] [address], [place] [address]. All rights reserved. This information is not intended as a substitute for professional medical care. Always follow yourhealthcare professional's instructions. Follow Up Care 07/11/2022 08:20:34 With:DO MELISSA COHN DO Address: [address] [place] [address] [address] [place] [address] When:3-7 days With:Go to emergency room if symptoms worsen Address:Unknown When:2-4 days [facility] 02-13-2023 Note Discharge Instructions Thank you for allowing [facility] to assist you with your healthcare needs. [...] COHN DO When Within 3-7 days Where: [address] [place] [address] [address] [place] [address] Follow Up with Go to [...] alternate ice and heat. You may use macn-pds-otxifwz pain medicine to control pain, unless another [...] hand becomes cold, blue, numb, or tingly [phone] [employer]. [address] [place] [address], [place] [id number]. All rights reserved. This information is not intended as a substitute for professional medical care. Always follow yourhealthcare professional's instructions. Additional Information VACCINATE! IT SAVES LIVES! Members of the community who have not yet received the COVID-19 vaccine and would like to receive it can visit one of [facility] vaccine clinics. There are many vaccine clinic locations within the [facility]. For locations and available times, please visit [email or web address]. It is important to note that some COVID mobile vaccine clinics are held outdoors and may be canceled in rainy orstormy conditions. To learn more about pediatric vaccinations (ages 5-11), we invite you to visit the [facility] webpage. https://www.[facility].org/pages/4408-Gnlne-Duwyuqelifa-Xcfnhuzhmr-Pvcjm-Mmk stions.htmlTo learn more about the COVID-19 vaccine, we invite you to visit the [facility] website for a list of frequently asked questions. https://larry.org/assets/Hrtowhja-ajr-Vbrfskxk/hgylf-Acomzda-Rhwpmklucw _Asked-Questions.pdf [facility] Patient Portal Access Instructions: Stay connected with your healthcare team and access your personal medical information anytime with the [facility] Patient Portal. If you would like a full copy of your medical records please contact the [facility] Medical Records Department Monday through Monday between 8a.m. and 4:30p.m. Please follow the directions below to access the portal: 1.Access the email account you provided upon registration to the [facility].2.Look for an invitation email from [facility].3.Open the email and access the invitation link: Accept Invitation to [facility]4.Fill in the required orr to create your account. Sign into [email or web address] with your username and password that you [...] you will allow to register on the [facility] Patient Portal for access to your information. You can also access the [facility] Patient Portal on the [employer]. Simply click on "Health Records" under "HealthData" and then click on the Sayah logo. HOW TO SAFELY DISPOSE OF PRESCRIPTION [...] Call your local pharmacy or go to [email or web address] to find one close to you.3.Make use of household items: Use cat litter or old coffee grounds to dispose medications if other options arenot available. Mix your drugs with these household products, seal them in an airtight container andthrow it into the garbage. Call [facility]: [phone] to be sure your drugs can be [...] aware that I should contact my doctor. 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 Signature: Date/Time: Relationship to Patient: Witness Name/Signature: Date/Time: [facility]02-13-2023 Note ORIGINAL EXAMINATION: THREE XRAY VIEWS [...] 07/11/2022 8:51:46 AM Ordering Provider: MALORIE PEGUERO [facility]02-13-2023 Note ORIGINAL EXAMINATION: THREE XRAY VIEWS [...] 8:51:46 AM Ordering Provider: [facility]09-12-2022 Note [address] [id number] PERSONAL HISTORY AND PHYSICAL : Signed Name: CARLOS ALBERTO KELLEY JR Lucian MRUN: [id number] : 1970 Loc: ENDO Age / Sex: 51/ M Adm Status: PRE SDC Adm Date:02/15/22 Room/Bed: A 51-year-old patient of Zacarias Ramoston in [place], who comes to discuss endoscopy. He has [...] Dictated Date/Time: 02/07/22 1659 Transcribed Date/Time: 02/07/22 1716[facility] Anesthesiology Consult note* CIRILO MCDONOUGH DO: PERFORM, SIGN, VERIFY Event Display: Anesthesiology Consultation Authored Date: [id number] Patient: CARLOS ALBERTO KELLEY Age: 53 years [...] device, # 1 EA, 0 Refill(s), Pharmacy: [facility], 177.8, cm, 11/28/23 13:54:00 EDT, Height, 151.4, kg, 11/28/23 13:54:00 EDT, Dosin... Blood Glucose Test Strips: See Instructions, 1 bottle of 100 Test once daily, # 1 EA, 11 Refill(s), Pharmacy: [facility], 177.8, cm, 11/28/23 13:54:00 EDT, Height, 151.4, kg, 11/28/23 13:54:00 EDT, Dosing Weight FLUoxetine 20 mg oral capsule: Dose : 20 mg = 1 cap(s), Oral, qDay, # 30 cap(s), 3 Refill(s), Pharmacy: [facility], 177.8, cm, 11/28/23 13:54:00 EDT, Height, kg, 11/28/23 13:54:00 EDT,Dosing Weight Lancets: See Instructions, qs 1 month supply Test once daily, # 1 EA, 11 Refill(s), Pharmacy: [facility], 177.8, cm, 11/28/23 13:54:00 EDT, Height, 151.4, kg, 11/28/23 13:54:00 EDT, Dosing Weight Lasix 40 mg oral tablet: See Instructions, 1 tab in AM and 0.5 tab in PM, # 135 tab(s), 3 Refill(s), Pharmacy: [facility], 177.8, cm, 11/28/23 13:54:00 EDT, Height, kg, 11/28/23 13:54:00 EDT, Dosing Weight Symbicort 80 mcg-4.5 mcg/inh Inhaler: Dose = 2 puff(s), Inhalation, BID, # 10.2 gram(s), 3 Refill(s), Pharmacy: [facility], 177.8, cm, 11/28/23 13:54:00 EDT, Height, kg, 11/28/23 13:54:00 EDT, Dosing Weight Tikosyn 250 mcg oral capsule: Dose : 250 mcg = 1 cap(s), Oral, BID, # 180 cap(s), 3 Refill(s), Pharmacy: [facility]/pharmacy #[id number], 177.8, cm, 11/28/23 13:54:00 EDT, Height, kg, 11/28/23 13:54:00 EDT, Dosing Weight Toprol-XL 100 mg oral tablet, extended release: Dose : 100 mg = 1 tab(s), Oral, BID, do not crush or chew, # 180 tab(s), 3 Refill(s), Pharmacy: [facility], Shortness of breath, 177.8, cm, 11/28/23 13:54:00 EDT, Height, kg, 11/28/23 13:54:00 EDT, Dosing Weight Trulicity Pen 1.5 mg/0.5 mL subcutaneous solution: Dose : 1.5 mg =, Subcutaneous, qWeek, sent in absence of PCP, # 4 EA, 3 Refill(s), Pharmacy: [facility], 177.8, cm, 11/28/23 13:54:00EDT, Height, kg, 11/28/23 13:54:00 EDT, Dosing Weight Vistaril 25 mg oral capsule: Dose : 25 mg = 1 cap(s), Oral, QID, PRN as needed for anxiety, X 30 day(s), # 120 cap(s), 5 Refill(s), 06/09/24 16:10:00 EST, Pharmacy: [facility], 177.8, cm, 11/28/23 13:54:00 EDT, Height, kg, 11/28/23 13:54:00 EDT, Dosing Weight Xarelto 20 mg oral tablet: Dose : 20 mg = 1 tab(s), Oral, qHS, # 90 tab(s), 3 Refill(s), Pharmacy: [facility], 177.8, cm, 11/28/23 13:54:00 EDT, Height, 151.4, kg, 11/28/23 13:54:00 EDT, Dosing Weight allopurinol 100 mg oral tablet: Dose : 100 mg = 1 tab(s), Oral, qDay, # 90 tab(s), 3 Refill(s), Pharmacy: [facility], 177.8, cm, 11/28/23 13:54:00 EDT, Height, kg, 11/28/23 13:54:00 EDT, Dosing Weight cetirizine 10 mg oral tablet: Dose : 10 mg = 1 tab(s), Oral, Daily, # 90 tab(s), 3 Refill(s), Pharmacy: [facility], 177.8, cm, 11/28/23 13:54:00 EDT, Height, kg, 11/28/23 13:54:00 EDT,Dosing Weight nystatin 100,000 units/g topical cream: Apply 1 frida, Topical, BID, X 10 day(s), # 30 gram(s), 1 Refill(s), Pharmacy: [facility]/pharmacy #[id number], Cream, 177, cm, 01/12/24 9:42:00 EDT, Height, 148.6, kg, 01/12/24 9:42:00 EDT, Dosing Weight omeprazole 40 mg oral delayed release capsule: Dose : 40 mg = 1 cap(s), Oral, BID, before a meal., # 180 cap(s), 3 Refill(s), Pharmacy: [facility], 177.8, cm, 11/28/23 13:54:00 EDT, Height, kg, 11/28/23 13:54:00 EDT, Dosing Weight rosuvastatin 20 mg oral tablet: Dose : 20 mg = 1 tab(s), Oral, Daily, # 100 tab(s), 3 Refill(s), Pharmacy: [facility], 177.8, cm, 11/28/23 13:54:00 EDT, Height, kg, 11/28/23 13:54:00 EDT, Dosing Weight sacubitril-valsartan 49 mg-51 mg oral tablet: Dose = 1 tab(s), Oral, BID, # 180 tab(s), 3 Refill(s), Pharmacy: [facility], 177.8, cm, 11/28/23 13:54:00 EDT, Height, kg, 11/28/23 13:54:00 EDT, Dosing Weight spironolactone 25 mg oral tablet: Dose : 25 mg = 1 tab(s), Oral, qDay, # 90 tab(s), 3 Refill(s), Pharmacy: [facility], 177.8, cm, 11/28/23 13:54:00 EDT, Height, kg, 11/28/23 13:54:00 EDT, Dosing Weight tiZANidine 2 mg oral tablet: Dose : 2 mg = 1 tab(s), Oral, q8h, PRN as needed for muscle spasm, # 90 tab(s), 2 Refill(s), Pharmacy: [facility], 177.8, cm, 11/28/23 13:54:00 EDT, Height, kg, 11/28/23 13:54:00 EDT, Dosing Weight traZODone 100 mg oral tablet: Dose : 100 mg = 1 tab(s), Oral, qHS, # 90 tab(s), 3 Refill(s), Pharmacy: [facility], 177.8, cm, 11/28/23 13:54:00 EDT, [...] list: Medical Asthma exacerbation / SNOMED CT 1475058161 / Confirmed Anxiety / SNOMED CT 38014754 / Confirmed Atopic dermatitis / SNOMED CT 11972870 / Confirmed BMI 45.0-49.9, adult / SNOMED CT 1130278142 / Confirmed Cardiomyopathy / SNOMED CT 199443403 / Confirmed Diabetes mellitus / SNOMED CT 089001765 / Confirmed Generalized anxiety disorder / SNOMED CT 46817203 / Confirmed Hyperlipidemia / SNOMED CT 02271071 / Confirmed Hypertension / SNOMED CT 0290334475 / Confirmed Insomnia / SNOMED CT 732811453 / Confirmed Moderate asthma / SNOMED CT 5456095166 / Confirmed Morbid obesity / SNOMED CT 736525518 / Confirmed Chewing tobacco nicotine dependence / SNOMED CT 70357388 / Confirmed Obstructive sleep apnea / SNOMED CT 668609609 / Confirmed Right knee pain / SNOMED CT 6199761426 / Confirmed Paroxysmal atrial fibrillation / SNOMED CT 881491285 / Confirmed Screening for ischemic heart disease / SNOMED CT 341951945 / Confirmed Screening for colon cancer / SNOMED CT 762450826 / Confirmed Prediabetes / SNOMED CT 0529816512 / Confirmed Right flank pain / SNOMED CT 364754713 / Confirmed Type 2 diabetes mellitus with hemoglobin A1c goal of less than 7.0% / SNOMED CT 952472597 / Confirmed Wheezing / SNOMED CT 21330661 / Confirmed, Active Problems (26) Anxiety Asthma [...] Mother Grandparent Stroke Father Procedure history: Cardioversion ([id number]) on 12/23/2022 at 52 Years. Echocardiogram ([id number]) on 11/11/2022 at 52 Years. Comments: 03/20/2023 [...] right atrial pressure is 15 mm Hg [facility] ([id number]). Comments: 07/11/2022 8:26 SHAHEEN Nunez - right [...] On and Limits Checked Nail Bed Color [facility] Capillary Refill < 2 seconds Heart Sounds [...] Elimination Voiding, no difficulties All Extremity Description [facility] Skin Temperature Warm Temperature All Extremities Warm Skin Description [facility], Dry Skin Integrity Intact Skin Turgor Non-Elastic Mucous Membrane Color [facility] Mucous Membrane Description Moist Neurological Language Able to speak clearly Neurological Symptoms Patient denies Gait Unable to assess Extremity Movement Equal Swallowing Difficulty None Characteristics of Communication Appropriate Characteristics of Speech Clear Facial Symmetry Symmetric Level of Consciousness Alert Aspiration Risk None Eye Opening Response [place] Spontaneously Best Motor Response [place] Obeys simple commands Best Verbal Response [place] Oriented Luis Fel[facility] Coma Score 15 CLARA [...] On and Limits Checked Nail Bed Color [facility] Capillary Refill < 2 seconds Heart Sounds ICU S1S2 Heart Rhythm Irregular Cardiac Rhythm Sinus rhythm Monitoring Lead II, V5/MCL5 [place] Interval 0.16 second(s) QRS Duration 0.08 second(s) [...] Elimination Voiding, no difficulties All Extremity Description [facility] Skin Temperature Warm Temperature All Extremities Warm Skin Description [facility], Dry Skin Integrity Intact Skin Turgor Non-Elastic Mucous Membrane Color [facility] Mucous Membrane Description Moist Neurological Language Able to speak clearly Neurological Symptoms Patient denies Gait Unable to assess Extremity Movement Equal Swallowing Difficulty None Characteristics of Communication Appropriate Characteristics of Speech Clear Facial Symmetry Symmetric Level of Consciousness Alert Aspiration Risk None Eye Opening Response [place] Spontaneously Best Motor Response Luis Felipe Obeys simple commands Best Verbal Response Luis Felipe Oriented [place] Coma Score 15 CLARA Yes Strength All [...] Notify date/time 01/31/2024 22:20 Provider Notified 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 Notification Method Pager Information Communicated Medication request [...] On and Limits Checked Nail Bed Color [facility] Capillary Refill < 2 seconds Heart Sounds [...] Movement Makes facial grimaces All Extremity Description [facility] Skin Temperature Warm Temperature All Extremities Warm Skin Description [facility], Dry Skin Integrity Intact Skin Turgor Non-Elastic Mucous Membrane Color [facility] Mucous Membrane Description Moist Sensory Perception [place] [...] commands Best Verbal Response Luis Felipe Oriented [place] Coma Score 15 CLARA Yes Left Pupil [...] On and Limits Checked Nail Bed Color [facility] Capillary Refill < 2 seconds Heart Sounds [...] intact Skin Turgor Non-Elastic Mucous Membrane Color [facility] Mucous Membrane Description Moist Neurological Language Able to speak clearly Neurological Symptoms Patient denies Extremity Movement Equal Swallowing Difficulty None Characteristics of Communication Appropriate Characteristics of Speech Clear Facial Symmetry Symmetric Level of Consciousness Alert Aspiration Risk None Eye Opening Response [place] Spontaneously Best Motor Response [place] Obeys simple commands Best Verbal Response [place] Oriented [place] Coma Score 15 CLARA Yes Left Pupil [...] of Bed Elevated 30 01/31/2024 15:38 EDT [facility] Current Living Situation I have a steady place to live [facility] Current Issues Living Environment None [facility] Worried Food Running Out P12M Never true [facility] Food Gone, No Money To Buy P12M Never true [facility] No Transport Med/Appt/Work P12M No [facility]HC Utilities Threaten Shut Off P12M No [facility] Anyone Physically Hurt You Never (1) C Anyone Insult Or Talk Down To You Never (1) C Anyone Threaten You With Harm Never (1) [facility] Anyone Scream Or Curse At You Never (1) [facility] Safety Total Score 4 Living Situation Lives with family Discharge To, Anticipated Home independently Anticipated Discharge Date 02/02/2024 Transition Planning Note Transition Planning Initial Assessment 01/31/2024 15:36 EDT Primary Care Phone Message Transition of Care sent from [facility] 01/31/2024 14:59 EDT heparin 9,000 unit(s) unit(s) Dextrose 5% Premix Diluent 90 mL mL 01/31/2024 14:43 EDT [place] [facility] Weight 72.7 kg Home Diet Regular Weight Chg, Unintentional Nutrition Hx Weight stable per [place] history Appetite Good Nutrition Plan of Care Dietitian follow up/monitor, Encourage PO feedings, Participate in team conference Nutrition Follow-Up Needed Yes Days until [place] Follow Up Seven days Adult Nutrition Initial Assessment/Plan Adult Nutrition Assessment/Plan 01/31/2024 14:22 EDT Transition of Care Note Transition of Care sent from [facility] 01/31/2024 14:00 EDT Hand Right 01/30/2024 [...] On and Limits Checked Nail Bed Color [facility] Capillary Refill < 2 seconds Heart Rhythm [...] Description Normal for ethnicity Mucous Membrane Color [facility] Mucous Membrane Description Moist Hand Right 01/30/2024 [...] On and Limits Checked Nail Bed Color [facility] Capillary Refill < 2 seconds Heart Rhythm [...] intact Skin Turgor Non-Elastic Mucous Membrane Color [facility] Mucous Membrane Description Moist Continuous IV Infusions [...] Alert Aspiration Risk None Eye Opening Response [place] Spontaneously Best Motor Response [place] Obeys simple commands Best Verbal Response [place] Oriented [place] Coma Score 15 CLARA Yes Left Pupil [...] On and Limits Checked Nail Bed Color [facility] Capillary Refill < 2 seconds Heart Rhythm [...] Description Normal for ethnicity Mucous Membrane Color [facility] Mucous Membrane Description Moist Continuous IV Infusions [...] On and Limits Checked Nail Bed Color [facility] Capillary Refill < 2 seconds Heart Rhythm [...] intact Skin Turgor Non-Elastic Mucous Membrane Color [facility] Mucous Membrane Description Moist Continuous IV Infusions [...] Alert Aspiration Risk None Eye Opening Response [place] Spontaneously Best Motor Response [place] Obeys simple commands Best Verbal Response Luis Felipe Oriented [place] Coma Score 15 CLARA Yes Left Pupil [...] On and Limits Checked Nail Bed Color [facility] Capillary Refill < 2 seconds Heart Rhythm [...] intact Skin Turgor Non-Elastic Mucous Membrane Color [facility] Mucous Membrane Description Moist Continuous IV Infusions [...] On and Limits Checked Nail Bed Color [facility] Capillary Refill < 2 seconds Heart Rhythm [...] intact Skin Turgor Non-Elastic Mucous Membrane Color [facility] Mucous Membrane Description Moist Hand Right 01/30/2024 [...] Alert Aspiration Risk None Eye Opening Response [place] Spontaneously Best Motor Response [place] Obeys simple commands Best Verbal Response Luis [...] EDT Designated Person #1 We May Share [facility] MARILYN OSP[place] [phone] Designated Person #1 Relationship Sibling Designated Person #2 We May Share [facility] Designated Person #2 We May Share PHI Designated Person #2 Relationship Significant other Privacy Restrictions Requested None Height 175 cm Height in inches 68.9 inch(es) Admission Weight 149.1 kg Weight Lbs 328 lb [facility] Body Weight 70.46 kg BSA Admission 2.55 [...] evident Teaching Method Explanation Preferred Spoken Language Maltese Preferred Written Language Maltese Teaching Evaluation No further teaching needed Safety [...] On and Limits Checked Nail Bed Color [facility] Capillary Refill < 2 seconds Heart Sounds [...] intact Skin Turgor Non-Elastic Mucous Membrane Color [facility] Mucous Membrane Description Moist Sensory Perception [place] [...] Alert Aspiration Risk None Eye Opening Response [place] Spontaneously Best Motor Response [place] Obeys simple commands Best Verbal Response [place] Oriented [place] Coma Score 15 CLARA Yes Left Pupil [...] explained to patient, Risks and benefits explained [facility] credit resolution representative Transferring Physician MD SAMY JONES MD Receiving Facility Accepting Transfer [place] Rep. of Receiving Facility Accepting Pt Dr. hernandez Date/Time Transfer Accepted 01/30/2024 23:[address] Hernandez Date/Time Physician Accepted Patient 01/30/2024 23:10 Nurse Receiving Report Nora RN Nurse Receiving Report Nora Date/Time Nurse Received Report 01/31/2024 1:43 Date/Time Nurse Received Report 01/31/2024 1:43 Mode of Transfer Ground ambulance Required Personnel for Transfer Flight Test Supervisor Ambulance Service [facility] Nursing [facility] MICU Discharged to Another [...] 250 mL mL . Assessment and Plan [place] [employer] (ASA) physical status classification: [...] CIRILO MCDONOUGH DO on 02/01/2024 06:26 AM [facility] Discharge summary Author Farzad Camilo [facility] Note Date/Time December 21, 2024 1:02 pm [facility] Medical Records Department [address] [place] [id number] Transfer to [facility] MR#: [id number] Acct: [id number] Name: CARLOS ALBERTO KELLEY Jr. Rep #:[id number] : 1970 54 From: Farzad mejia MD PCP: Dr. Jhonatan Garcia DO Status:ADM BRENNA Certification of patient admission REQUIRED AT TIME OF ADMISSION. I CERTIFY THAT POST-HOSPITAL F SERVICES ARE REQUIRED TO BE GIVEN ON AN IN-PATIENT BASIS BECAUSE OF THE ABOVE NAMED PATIENT'S NEED FOR HALF-WAY CARE ON A CONTINUING BASIS FOR THE CONDITION(S) FOR WHICH HE/SHE WAS RECEIVING IN-PATIENT HOSPITAL SERVICES PRIOR TO HIS/HER TRANSFER TO [facility]. 12/21/24 0845<Electronically signed by Farzad Camilo MD> Diet Diet Order/Speech Therapy: INPATIENT Hospital Diet / Speech Therapy Order(s) 12/20/24 22:28 Diet: Regular - General Food consistency:: Regular Liquid Consistency:: Regular/Thin Routine Orders/Code Status Routine Lab Work: CBC and BMP Code Status: Full Code DC O2, CPAP, BIPAP needs Home O2 Discharge instructions: No Wound(s) rt hand: Wound Type: blisters from IV infiltration with contrast Therapies Physical Therapy: Eval and Treat Occupational Therapy: Eval and Treat Problem/Diagnosis (1) Extravasation of intravenous contrast medium: Status: Acute Code(s): T80.818A - Extravasation of other vesicant agent, initial encounter (2) Swelling of right hand: Status: Acute Code(s): M79.89 - Other specified soft tissue disorders Allergies/Procedures Done in Hospital Allergies [id number] Reductase Inhibitor Allergy (Mild, Verified 12/20/24 13:07) Hives Procedures: None Type of Care/Length of Stay Estimated LOS: Convalescent Care Less Than 30 days Type of Care Needed: Skilled Rehab Potential: Good Prognosis: Good Additional Orders/Day of Discharge Day of Discharge: 12/21/24 Discharge Plan Admission Admit Date/Time: 12/20/24 17:52 Attending Provider: Farzad Camilo Primary Care Provider: Jhonatan Garcia Consulting Providers: Austin Estrada; Yaz Dee Instructions Additional Instructions / Restrictions: Plastic surgery discharge instructions Continue elevation of the right upper extremity especially at night and when lying in bed for the next several days for the swelling to decrease Recommend bacitracin or Neosporin and Band-Aids for any skin excoriations on thedorsum of the right hand secondary to the blistering. Follow-up with me later this week in clinic Discharge Orders/Prescriptions Prescriptions: Continued hydrochlorothiazide 50 mg Tablet 50 mg PO DAILY amlodipine 5 mg Tablet 5 mg PO DAILY allopurinol 100 mg Tablet 100 mg PO DAILY omeprazole 40 mg Capsule,Delayed Release(Dr/Ec) 40 mg PO DAILY Xarelto 20 mg tablet 20 mg PO DAILY Qty: 30 0RF Rx Instructions: must administer with evening meal tramadol 50 mg tablet 50 mg PO Q8H PRN (Reason: pain) trazodone 100 mg tablet 100 mg PO QHS tizanidine 2 mg tablet 2 mg PO Q8H spironolactone 25 mg tablet 25 mg PO DAILY albuterol sulfate 2.5 mg /3 mL (0.083 %) solution for nebulization 2.5 mg inhalation Q6H Patient Comments: [NO ORIGINAL SIG] Rx Instructions: via nebulizer pravastatin 40 mg tablet 40 mg PO DAILY metoprolol succinate 100 mg tablet extended release 24 hr 100 mg PO BID dofetilide 250 mcg capsule 250 mcg PO BID potassium chloride 20 mEq tablet,ER particles/crystals 20 meq PO DAILY hydroxyzine pamoate 25 mg capsule 25 mg PO Q6H PRN (Reason: anxiety) Patient Comments: TAKE X14 DAYS END DATE IS 12/27/24 duloxetine 20 mg capsule,delayed release(DR/EC) 20 mg PO DAILY Nexletol 180 mg tablet 180 mg PO DAILY cetirizine 10 mg tablet 10 mg PO DAILY fluticasone propion-salmeterol [Advair Diskus] 100-50 mcg/dose blister with device 1 inh inhalation BID fluticasone propion-salmeterol [Advair Diskus] 100-50 mcg/dose blister with device 2 inh inhalation BID Trulicity 1.5 mg/0.5 mL pen injector 1.5 mg subcut .WEEKLY Patient Comments: patient takes on acetaminophen 325 mg capsule 650 mg PO Q4H PRN (Reason: fever or pain) Referrals / Follow Up: Jhonatan Garcia DO [Primary Care Provider] - Disposition Disposition (needs filled in before D/C Order can be placed): Detention Facility 12/21/24 0845 <Electronically signed by Farzad Camilo MD> Cosigner Signature (if applicable): CC: Dr. Yaz Dee MD; Dr. Austin Estrada MD; Dr. Jhonatan Garcia DO ~ [facility] Work Phone: Discharge summary Author Farzad Camilo [facility] Note Date/Time December 21, 2024 11:3 8am [facility] Medical Records Department [address] [place] [address] Discharge Summary 12/21/24 1134 MR#: [id number] Acct: [id number] Name: CARLOS ALBERTO KELLEY Jr. Rep #:[id number] : 1970 54 From: Farzad mejia MD PCP: Dr. Jhonatan Garcia DO Status:ADM BRENNA Location: [place] [address] Providers Date of Admission: 12/20/24 Primary Care Physician: Dr. Jhonatan Garcia DO Consultations 12/20/24 22:28 Consult: Plastic Surgery Routine Consulting Provider: Austin Estrada Reason for Consult: Right hand pain and swelling EMERGENT Consult: No MD Notified: Yes Date Notified: 12/20/24 Time Notified: 18:28 Method of Notification: ED Physician Initiated Reason For Visit: RIGHT ARM SWELLING AND ERYTHEMA AFTER CONTRAST Diagnosis Discharge Diagnosis (1) Extravasation of intravenous contrast medium: Status: Acute Code(s): T80.818A - Extravasation of other vesicant agent, initial encounter (2) Swelling of right hand: Status: Acute Code(s): M79.89 - Other specified soft tissue disorders Medications at Discharge Home Medications allopurinol 100 mg tablet 100 mg PO DAILY 10/23/22 amlodipine 5 mg tablet 5 mg PO DAILY 10/23/22 hydrochlorothiazide 50 mg tablet 50 mg PO DAILY 10/23/22 omeprazole 40 mg capsule,delayed release 40 mg PO DAILY 10/23/22 rivaroxaban 20 mg tablet (Xarelto) 20 mg PO DAILY #30 tabs 10/23/22 albuterol sulfate 2.5 mg/3 mL (0.083 %) solution for nebulization 2.5 mg inhalation Q6H 12/19/24 bempedoic acid 180 mg tablet (Nexletol) 180 mg PO DAILY 12/19/24 dofetilide 250 mcg capsule 250 mcg PO BID 12/19/24 duloxetine 20 mg capsule,delayed release 20 mg PO DAILY 12/19/24 hydroxyzine pamoate 25 mg capsule 25 mg PO Q6H PRN anxiety 12/19/24 metoprolol succinate 100 mg tablet,extended release 24 hr 100 mg PO BID 12/19/24 potassium chloride 20 mEq tablet,extended release(part/cryst) 20 meq PO DAILY 12/19/24 pravastatin 40 mg tablet 40 mg PO DAILY 12/19/24 spironolactone 25 mg tablet 25 mg PO DAILY 12/19/24 tizanidine 2 mg tablet 2 mg PO Q8H 12/19/24 tramadol 50 mg tablet 50 mg PO Q8H PRN pain 12/19/24 trazodone 100 mg tablet 100 mg PO QHS 12/19/24 acetaminophen 325 mg capsule 650 mg PO Q4H PRN fever or pain 12/20/24 cetirizine 10 mg tablet 10 mg PO DAILY 12/20/24 dulaglutide 1.5 mg/0.5 mL subcutaneous pen injector (Trulicity) 1.5 mg subcut .WEEKLY 12/20/24 fluticasone 100 mcg-salmeterol 50 mcg/dose blistr powdr for inhalation (Advair Diskus) 1 inh inhalation BID 12/20/24 fluticasone 100 mcg-salmeterol 50 mcg/dose blistr powdr for inhalation (Advair Diskus) 2 inh inhalation BID 12/20/24 Hospital Course Operations None Procedures None Summary of Care Provided Minutes Spent on Discharge: 31 Hospital Course: Per HPI: CARLOS ALBERTO KELLEY, is [id number] male history of hypertension, gout, cardiomyopathy, GERD, diabetes, depression and anxiety, KOFFI who presented [facility] ED 12/20/2024 for right hand pain, swelling, itching that started yesterday when he was in the ED for a CT scan of the chest with IV contrast. The contrast infiltrated out of the IV so he had an IV placed in his left hand and then got the IV contrasted study. No symptoms in left hand at all. Re-presented today due to increased swelling and redness all the way up right upper arm. In the ED temp 98.6, heart rate 72 and blood pressure 145/88, respiratory 18 pulse ox 99% on room air. CBC and BMP fairly benign, hand x-ray with severe soft tissue swelling. Plastic surgery was contacted in the ED and evaluated, recommended admission for observation with aggressive elevation. Hospitalist contacted for admission. Patient evaluated at bedside. Patient reports history as above with the swelling developing since yesterday, patient has difficulty moving hand due to the swelling more so than the pain. Denies fever, reports his right foot/ankle gets little bit irritated due to the fixatorthat is due to come off January 01 but no other new or acute complaints Hospital Course: 1. Right hand swelling after contrast extravasation and IV infiltration?54-year-old male with a recent ankle fracture who was at a nursing facility presented to the hospital for a CT scan and at that time the IV infiltrated and there was contrast extravasation. He developed blistering and swelling of his right hand so presented to the hospital. Plastic surgery was consulted in the ER and recommended overnight observation. This morning per plastic surgery the hand looks much better so he recommends bacitracin ointment. No leukocytosis orfever. Plan will be to return to SNF today and he was stable for discharge fromplastic surgery's perspective. 2. Recent ankle fracture, gout, essential hypertension, depression, anxiety, paroxysmal A-fib, chronic heart failure unknown type are all chronic medical conditions which complicate his care. His home medications were continued whereappropriate Physical Exam Narrative General: Alert, Oriented x3, Cooperative, No apparent distress HEENT: Atraumatic, PERRLA, EOMI, Normocephalic Oral: Moist Mucosa Neck: Supple, No JVD Lungs: Diminished, Normal air movement, No rhonchi, No wheeze, No rales Cardiovascular: Regular rate, Regular Rhythm, Normal S1, Normal S2, No murmurs Abdomen: Soft, Non Tender, Non-Distended, No Hepato-splenomegaly Extremities: No edema, Capillary Refill Less than 3 Seconds, right foot Ex-Fix in his left foot is in a boot Skin: Blisters on the dorsal aspect of his right hand and wrist Musculoskeletal: No Tenderness to Palpation of Joints or Extremities Neurological: No focal neurological deficits, Motor Exam 5/5 strength throughout, Sensory exam intact to light touch and pain Psych/Mental Status: Normal Affect, Appropriate Weight / BMI Weight Weight: 309 lb 15.519 oz Body Mass Index (BMI) 45.8 ABG / Lab / Microbiology Data 12/21/24 03:42 12/21/24 03:42 Laboratory: Laboratory Results - last 24 hr 12/20/24 15:04: WBC 8.4, RBC 5.31, Hgb 14.3, Hct 46.2, MCV 87.0, MCH 26.9 L, MCHC 31.0 L, RDW Std Deviation 44.4 H, RDW Coeff of Tee 13.9, Plt Count 198, MPV 9.8, Immature Gran % (Auto) 0.400, Neut % (Auto) 76.3 H, Lymph % (Auto) 10.6 L, [place] % (Auto) 10.6 H, Eos % (Auto) 1.6, Baso % (Auto) 0.5, Absolute Neuts (auto)6.4, Absolute Lymphs (auto) 0.89, Nucleated RBC % 0, Sodium 134, Potassium 4.2, Chloride 98, Carbon Dioxide 26.7, Anion Gap 10, BUN 12, Creatinine 0.94, Estim Creat Clear Calc 128.93, Est GFR (MDRD) Non-Af 97, BUN/Creatinine Ratio 12.3, Glucose 121 H, Calcium 9.2 07/25/25 23:19: POC Glucose 222 H 12/21/24 03:42: WBC 7.4, RBC 5.23, Hgb 14.2, Hct 45.3, MCV 86.6, MCH 27.2, MCHC 31.3 L, RDW Std Deviation 43.9, RDW Coeff of Tee 13.8, Plt Count 191, MPV 9.8, Immature Gran % (Auto) 0.300, Neut % (Auto) 68.8, Lymph % (Auto) 15.1 L, [place] % (Auto) 13.4 H, Eos % (Auto) 1.9, Baso % (Auto) 0.5, Absolute Neuts (auto) 5.1, Absolute Lymphs (auto) 1.12, Nucleated RBC % 0, Sodium 140, Potassium 4.5, Chloride 101, Carbon Dioxide 29.1, Anion Gap 10, BUN 12, Creatinine 0.86, Estim Creat Clear Calc 138.62, Est GFR (MDRD) Non-Af 103, BUN/Creatinine Ratio 13.8, Glucose 126 H, Calcium 9.2 12/21/24 07:04: POC Glucose 99 12/21/24 11:03: POC Glucose 171 H Radiography Diagnostic Testing: Radiology Impression Hand X-Ray 12/20/24 14:52 IMPRESSION: Severe soft tissue swelling. No significant bony abnormality Reading Location: [id number] D/C Instructions DC O2, CPAP, BIPAP Needs Home O2 Discharge instructions: No Meaningful Use Info Meaningful Use Meaningful Use Diagnoses (Choose all that apply): None applicable Discharge Plan Admission Admit Date/Time: 12/20/24 17:52 Attending Provider: Farzad Camilo Primary Care Provider: Jhonatan Garcia Consulting Providers: Austin Estrada; Yaz Dee Instructions Additional Instructions / Restrictions: Plastic surgery discharge instructions Continue elevation of the right upper extremity especially at night and when lying in bed for the next several days for the swelling to decrease Recommend bacitracin or Neosporin and Band-Aids for any skin excoriations on thedorsum of the right hand secondary to the blistering. Follow-up with me later this week in clinic Discharge Orders/Prescriptions Prescriptions: Continued hydrochlorothiazide 50 mg Tablet 50 mg PO DAILY amlodipine 5 mg Tablet 5 mg PO DAILY allopurinol 100 mg Tablet 100 mg PO DAILY omeprazole 40 mg Capsule,Delayed Release(Dr/Ec) 40 mg PO DAILY Xarelto 20 mg tablet 20 mg PO DAILY Qty: 30 0RF Rx Instructions: must administer with evening meal tramadol 50 mg tablet 50 mg PO Q8H PRN (Reason: pain) trazodone 100 mg tablet 100 mg PO QHS tizanidine 2 mg tablet 2 mg PO Q8H spironolactone 25 mg tablet 25 mg PO DAILY albuterol sulfate 2.5 mg /3 mL (0.083 %) solution for nebulization 2.5 mg inhalation Q6H Patient Comments: [NO ORIGINAL SIG] Rx Instructions: via nebulizer pravastatin 40 mg tablet 40 mg PO DAILY metoprolol succinate 100 mg tablet extended release 24 hr 100 mg PO BID dofetilide 250 mcg capsule 250 mcg PO BID potassium chloride 20 mEq tablet,ER particles/crystals 20 meq PO DAILY hydroxyzine pamoate 25 mg capsule 25 mg PO Q6H PRN (Reason: anxiety) Patient Comments: TAKE X14 DAYS END DATE IS 12/27/24 duloxetine 20 mg capsule,delayed release(DR/EC) 20 mg PO DAILY Nexletol 180 mg tablet 180 mg PO DAILY cetirizine 10 mg tablet 10 mg PO DAILY fluticasone propion-salmeterol [Advair Diskus] 100-50 mcg/dose blister with device 1 inh inhalation BID fluticasone propion-salmeterol [Advair Diskus] 100-50 mcg/dose blister with device 2 inh inhalation BID Trulicity 1.5 mg/0.5 mL pen injector 1.5 mg subcut .WEEKLY Patient Comments: patient takes on acetaminophen 325 mg capsule 650 mg PO Q4H PRN (Reason: fever or pain) Referrals / Follow Up: Jhonatan Garcia DO [Primary Care Provider] - Disposition Disposition (needs filled in before D/C Order can be placed): Detention Facility Charges/Coding Visit Charges Inpatient E&M: 56320 Disch Hosp >30min 12/21/24 1134 <Electronically signed by Farzad Camilo MD> Cosigner Signature (if applicable): CC: Dr. Farzad Camilo MD; Dr. Jhonatan Garcia DO~ Signed [facility] Work Phone: Evaluation + Plan note No data available for this section [facility] Evaluation + Plan note Future Appointments Appointment Date:11/03/2022 09:15:00 AM Scheduled Provider:ZHOU ESPINOSA Location:[facility] Appointment Type:CV POURER Appointment Date:11/08/2022 02:00:00 PM Scheduled Provider:GIRMA CORREA Location:[facility] Appointment Type:PC POURER Unassigned ED Follow Up [facility] Evaluation + Plan note Future Appointments Appointment Date:11/04/2022 08:45:00 AM Scheduled Provider: Location:[facility] Appointment Type:CV POURER Appointment Date:11/08/2022 02:00:00 PM Scheduled Provider:GIRMA CORREA Location:[facility] Appointment Type:PC POURER Unassigned ED Follow Up [facility] Evaluation + Plan note Future Appointments Appointment Date:12/13/2022 03:00:00 PM Scheduled Provider:GIRMA CORREA Location:[facility] Appointment Type:PC OV Follow Up [facility] Evaluation + Plan note Future Appointments Appointment Date:02/07/2023 02:30:00 PM Scheduled Provider:GIRMA CORREA Location:[facility] Appointment Type:PC OV [facility] Evaluation + Plan note Future Appointments Appointment Date:06/20/2023 02:30:00 PM Scheduled Provider:GIRMA CORREA Location:[facility] Appointment Type:PC OV Future Scheduled Tests Laboratory* Basic Metabolic Panel 04/01/23 * A1C Hemoglobin 06/09/23 * Lipid Profile 06/09/23 * Complete Metabolic Panel 06/09/23 [facility] Evaluation + Plan note Future Appointments Appointment Date:08/22/2023 12:00:00 PM Scheduled Provider: Location:[facility] Appointment Type:PF PFT w/[place]od[place] Appointment Date:11/07/2023 02:00:00 PM Scheduled Provider:GIRMA CORREA Location:[facility] Appointment Type:PC OV Future Scheduled Tests Laboratory* Basic Metabolic Panel 04/01/23 [facility] Evaluation + Plan note Future Appointments Appointment Date:11/07/2023 02:00:00 PM Scheduled Provider:GIRMA CORREA Location:[facility] Appointment Type:PC OV Future Scheduled Tests Laboratory* Basic Metabolic Panel 04/01/23 [facility] Evricci + Plan note Future Appointments Appointment Date:06/20/2023 10:00:00 AM Scheduled Provider:GIRMA CORREA Location:[facility] Appointment Type:PC OV Hospital Follow-Up Appointment Date:06/20/2023 02:30:00 PM Scheduled Provider:GIRMA CORREA Location:[facility] Appointment Type:PC OV Appointment Date:07/17/2023 03:15:00 PM Scheduled Provider:ZHOU ESPINOSA Location:[facility] Appointment Type:CV OV Future Scheduled Tests Laboratory* Basic Metabolic Panel 04/01/23 * A1C Hemoglobin 06/09/23 * Lipid Profile 06/09/23 * Complete Metabolic Panel 06/09/23 [facility] Evaluation + Plan note Future Appointments Appointment Date:02/13/2024 03:30:00 PM Scheduled Provider:GIRMA CORREA Location:[facility] Appointment Type:PC Wellness Annual w/Labs Future Scheduled Tests Laboratory* Basic Metabolic Panel 04/01/23 * Prostate Specific Antigen 02/07/24 * A1C Hemoglobin 02/07/24 * Lipid Profile 02/07/24 * Complete Metabolic Panel 02/07/24 [facility] Evaluation + Plan note Future Appointments Appointment Date:03/26/2024 08:00:00 PM Scheduled Provider: Location:[facility] Appointment Type: Sameer Study Appointment Date:05/14/2024 03:00:00 PM Scheduled Provider:GIRMA CORREA Location:[facility] Appointment Type:PC OV Lab Check Future Scheduled Tests Laboratory* Basic Metabolic Panel 02/07/24 * Basic Metabolic Panel 02/19/24 * Basic Metabolic Panel 04/01/23 * Magnesium Level 02/07/24 * A1C Hemoglobin 05/14/24 * Lipid Profile 05/14/24 * Complete Metabolic Panel 05/14/24 [facility] Evaluation + Plan note Future Appointments Appointment Date:04/01/2024 01:00:00 PM Scheduled Provider:DAMIAN SHRESTHA MD Location:[facility] Appointment Type: OV Appointment Date:05/14/2024 03:00:00 PM Scheduled Provider:GIRMA CORREA Location:[facility] Appointment Type: OV Lab Check Future Scheduled Tests Laboratory* Basic Metabolic Panel 02/07/24 * Basic Metabolic Panel 02/19/24 * Basic Metabolic Panel 04/01/23 * Magnesium Level 02/07/24 * A1C Hemoglobin 05/14/24 * Lipid Profile 05/14/24 * Complete Metabolic Panel 05/14/24 [facility] Evaluation + Plan note Future Appointments Appointment Date:02/13/2024 03:30:00 PM Scheduled Provider:GIRMA CORREA Location:[facility] Appointment Type: Wellness Annual w/Labs Future Scheduled Tests Laboratory* Basic Metabolic Panel 02/07/24 * Basic Metabolic Panel 02/19/24 * Basic Metabolic Panel 04/01/23 * Magnesium Level 02/07/24 [facility] Evaluation + Plan note Future Appointments Appointment Date:08/12/2024 03:00:00 PM Scheduled Provider:GIRMA CORREA Location:[facility] Appointment Type:PC Wellness Annual Future Scheduled Tests Laboratory* Basic Metabolic Panel 02/07/24 * Basic Metabolic Panel 02/19/24 * Magnesium Level 02/07/24 [facility] Evaluation + Plan note Future Appointments Appointment Date:10/23/2024 04:00:00 PM Scheduled Provider:GIRMA CORREA Location:[facility] Appointment Type:PC OV Appointment Date:11/08/2024 02:30:00 PM Scheduled Provider:EDY WEBER Location:[facility] Appointment Type:CV OV Hospital Follow Up Future Scheduled Tests Laboratory* Basic Metabolic Panel 02/07/24 * Basic Metabolic Panel 12/10/24 * Basic Metabolic Panel 02/19/24 * Magnesium Level 02/07/24 * Complete Blood Count 08/27/24 * Complete Metabolic Panel 08/27/24 * N-Terminal proBNP 08/27/24 [facility] Evaluation noteNo assessment information available [facility] Work Phone: Hospital Discharge instructions Additional Instructions Call Dr. Etienne's office on Monday to be seen later this coming week.[facility] Work Phone: Hospital Discharge instructions No data available for this section [facility] Hospital Discharge instructions Additional Instructions Chest x-ray negative. COVID and flu negative. Vapor rubs, humidifier. May use loratadine D that you have at home daily. Cough suppressants as needed. Follow-up with your doctor. Return if any worsening symptoms.[facility] Work Phone: Hospital Discharge instructionsAdditional Instructions Your cardiac workup negative in the ED. Your CT angiogram chest negative for blood clots or any acute findings., Your oxygen dropped down while in the emergency department. Your facility continue oxygen as needed. You have sleep apnea history.[facility] Work Phone: Progress note No data available for this section [facility] Reason for referral (narrative)No reason for referral information availableWSumma Health Work Phone: Summary note* Valery, HIM Masha L: PERFORM Event Display: Patient Summary Documents Authored Date: [id number] [facility] Summary Purpose Family History No Family History [...] Found No data available for this section Advance Directives Advance Directive Response Recorded Date/ Time Living Will No October 23, 2022 6 :09am Power of Matcher Offbearer No October 23, 2022 6:09am Advance Directive Response Recorded Date/ Time Living Will No February 12, 2023 7:08am Power of Matcher Offbearer No January 7:08am Advance Directive Response Recorded Date/ Time Do you have a Healthcare Power of Matcher Offbearer? No December 19, 2024 10:20pm Advance Directive Response Recorded Date/ Time Do you have a Healthcare Power of Matcher Offbearer? No December 19, 2024 10:20pm Do you have a Healthcare Power of Matcher Offbearer? No December 20, 2024 2:24pm Advance Directive Response Recorded Date/ Time Do you have a Healthcare Power of Matcher Offbearer? No December 19, 2024 10:20pm Do you have a Healthcare Power of Matcher Offbearer? No December 20, 2024 9:23pm Chief Complaint and Reason for Visit Chief Complaint CHEST PAIN Chief Complaint CHEST PAIN cough Chief Complaint Admit Date HALF-WAY LAB WORK October 24, 2024 6:2 0am LAB WORK October 28, 2024 4:00a m LAB WORK October 30, 2024 5:55a m LAB WORK November 04, 2024 5:00a m LAB WORK November 06, 2024 4:00 am CHEST PAIN December 19, 2024 10:1 8pm Chief Complaint Admit Date HALF-WAY LAB WORK October 24, 2024 6:2 0am LAB WORK October 28, 2024 4:00a m LAB WORK October 30, 2024 5:55a m LAB WORK November 04, 2024 5:00a m LAB WORK November 06, 2024 4:00 am CHEST PAIN December 19, 2024 10:1 8pm allergic reaction December 20, 2024 2:39 pm RIGHT ARM SWELLING AND ERYTHEMA AFTER CO NTRAST December 20, 2024 5:52pm Reason for Visit Admit Date IV infiltrate December 20, 2024 5:52 pm Localized swelling on right hand December 202024 5:52pm Chief Complaint Admit Date HALF-WAY LAB WORK October 24, 2024 6:2 0am LAB WORK October 28, 2024 4:00a m LAB WORK October 30, 2024 5:55a m LAB WORK November 04, 2024 5:00a m LAB WORK November 06, 2024 4:00 am CHEST PAIN December 19, 2024 10:1 8pm allergic reaction December 20, 2024 2:39 pm RIGHT ARM SWELLING AND ERYTHEMA AFTER CO NTRAST December 20, 2024 5:52pm RIGHT ARM SWELLING AND ERYTHEMA AFTER CO NTRAST December 21, 2024 8:07am RIGHT ARM SWELLING AND ERYTHEMA AFTER CO NTRAST December 21, 2024 8:45am Reason for Visit Admit Date Extravasation of intravenous contrast me dium December 20, 2024 5:52pm IV infiltrate December 20, 2024 5:52 pm Localized swelling on right hand December 202024 5:52pm Swelling of right hand December 20, 2024 5 :52pm Additional Source Comments (unrecognized sect ion and content) No Status Records FoundNo Status Records FoundNo Status Records FoundNo Status Records FoundNo Status Records FoundNo Status Records FoundNo Status Records FoundNo Status Records FoundNo Status Records FoundNo Status Records FoundNo Status Records Found INFORMATION SOURCE (unrecogn ized section and content) DATE CREATED AUTHOR 02/15/2021 [facility] DATE CREATED AUTHOR AUTHOR'S ORGANIZ ATION 08/25/2021 [facility] DATE CREATED AUTHOR AUTHOR'S ORGANIZ ATION 2021 [employer] DATE CREATED AUTHOR AUTHOR'S ORGANIZ ATION 06/07/2022 [facility] DATE CREATED AUTHOR AUTHOR'S ORGANIZ ATION 08/17/2022 [facility] DATE CREATED AUTHOR AUTHOR'S ORGANIZ ATION 10/13/2023 [facility] DATE CREATED AUTHOR AUTHOR'S ORGANIZ ATION 02/02/2024 [facility] ([place]) DATE CREATED AUTHOR AUTHOR'S ORGANIZ ATION 10/23/2024 [facility] DATE CREATED AUTHOR AUTHOR'S ORGANIZ ATION 12/20/2024 [facility] DATE CREATED AUTHOR AUTHOR'S ORGANIZ ATION 12/25/2024 [facility] DATE CREATED AUTHOR AUTHOR'S ORGANIZ ATION 12/26/2024 [facility] Care Team (unrecognized sect ion and content) Care Team Personnel Name: PHYSICIAN, NONE Position: Physician Member Role: Primary Care Physician Name: MALORIE PEGUERO MD Position: ED Physician Member Role: ED Physician Address: Address: [facility] [address] [place] [id number] Name: SHAHEEN Sinha Position: AO RN Member Role: ED RN Care Team Related Persons Name: MAST, MARILYN Care Team Personnel Name: PHYSICIAN, NONE Position: Physician Member Role: Primary Care Physician Name: JEREMIE MCCORMACK MD Position: ED Physician Member Role: ED Physician Address: Address: [facility] [address] [place] [id number] Name: Halley Staples RN Position: AO RN [...] Bright MD Family Provider Active Girma Correa POURER, POURER-C Primary Care Provider Active Team Status: Inactive Member Role Status Dates Dr. Jameel Brown DO Attending Provider, Emergency Provider Active ROMAIN ADAMES Primary Care Provider Active Team Status: Inactive Member Role Status Dates Dr. Nguyễn Al DO Emergency Provider Active Girmadane Correa POURER, POURER-C Primary Care Provider Active Team Status: Active Member Role/Relationship Status Dates Dr. Jhonatan Garcia DO Primary Care Provider Active Team Status: Active Member Role/Relationship Status Dates Girma Correa POURER, POURER-C Primary Care Provider Active Start: October 24, 2024 Dr. Dolly HOLCOMB MD Attending Provider Active Start: October 24, 2024 Team Status: Active Member Role/Relationship Status Dates Girma Corrae POURER, POURER-C Primary Care Provider Active Start: October 28, 2024 Dr. Dolly HOLCOMB MD Attending Provider Active Start: October 28, 2024 Dr. Dolly HOLCOMB MD Referring Provider Active Start: October 28, 2024 Team Status: Active Member Role/Relationship Status Dates Girma Correa POURER, POURER-C Primary Care Provider Active Start: October 30, 2024 Dr. Dolly HOLCOMB MD Attending Provider Active Start: October 30, 2024 Team Status: Active Member Role/Relationship Status Dates Girma Correa POURER, POURER-C Primary Care Provider Active Start: November 04, 2024 Dr. Dolly HOLCOMB MD Attending Provider Active Start: November 04, 2024 Team Status: Active Member Role/Relationship Status Dates Girma Correa POURER, POURER-C Primary Care Provider Active Start: November 06, 2024 Dr. Dolly HOLCOMB MD Attending Provider Active Start: November 06, 2024 Dr. Dolly HOLCOMB MD Referring Provider Active Start: November 06, 2024 Team Status: Inactive Member Role/Relationship Status Dates Dr. Nguyễn Al DO Emergency Provider Active Start : December 19, 2024 End: December 20, 2024 Dr. Jhonatan Garcia DO Primary Care Provider Active Start: December 19, 2024 End: December 20, 2024 Team Status: Active Member Role/Relationship Status Dates Dr. Jhonatan Garcia DO Primary Care Provider Active Start: December 20, 2024 Dr. Robles Botello MD Emergency Provider Active Start: December 20, 2024 Dr. Austin Estrada MD Attending Provider Active Start: December 20, 2024 Team Status: Active Member Role/Relationship Status Dates Dr. Jhonatan Garcia DO Primary Care Provider Active Start: December 20, 2024 Dr. Robles Botello MD Emergency Provider Active Start: December 20, 2024 Dr. Yaz Dee MD Admit Provider Active Star t: December 20, 2024 Dr. Yaz Dee MD Attending Provider Active Start: December 20, 2024 Dr. Yaz Dee MD Other Provider Active Star t: December 20, 2024 Team Status: Inactive Member Role/Relationship Status Dates Dr. Jhonatan Garcia DO Primary Care Provider Active Start: December 20, 2024 End: December 21, 2024 Dr. Robles Botello MD Emergency Provider Active Start: December 20, 2024 End: December 21, 2024 Dr. Yaz Dee MD Admit Provider Active Star t: December 20, 2024 End: December 21, 2024 Dr. Yaz Dee MD Other Provider Active Star t: December 20, 2024 End: December 21, 2024 Dr. Austin Estrada MD Other Provider Active Star t: December 20, 2024 End: December 21, 2024 Dr. Farzad Camilo MD Attending Provider Active Start: December 20, 2024 End: December 21, 2024 Team Status: Active Member Role/Relationship Status Dates Dr. Jhonatan Garcia DO Primary Care Provider Active Start: December 21, 2024 Dr. Robles Botello MD Emergency Provider Active Start: December 21, 2024 Dr. Yaz Dee MD Admit Provider Active Star t: December 21, 2024 Dr. Yaz Dee MD Other Provider Active Star t: December 21, 2024 Dr. Austin Estrada MD Attending Provider Active Start: December 21, 2024 Dr. Austin Estrada MD Other Provider Active Star t: December 21, 2024 Dr. Farzad Camilo MD Other Provider Active Start: December 21, 2024 Team Status: Active Member Role/Relationship Status Dates Dr. Jhonatan Garcia DO Primary Care Provider Active Start: December 21, 2024 Dr. Robles Botello MD Emergency Provider Active Start: December 21, 2024 Dr. Yaz Dee MD Admit Provider Active Star t: December 21, 2024 Dr. Yaz Dee MD Other Provider Active Star t: December 21, 2024 Dr. Austin Estrada MD Other Provider Active Star t: December 21, 2024 Dr. Farzad Camilo MD Attending Provider Active Start: December 21, 2024 Dr. Farzad Camilo MD Other Provider Active Start: December 21, 2024 Team Status: Inactive Member Role/Relationship Status Dates Girma Correa POURER, POURER-C Primary Care Provider Active Start: November 04, 2024 End: November 04, 2024 Dr. Dolly HOLCOMB MD Attending Provider Active Start: November 04, 2024 End: November 04, 2024 Team Status: Inactive Member Role/Relationship Status Dates Dr. Nguyễn Al DO Attending Provider Active Start : December 19, 2024 End: December 20, 2024 Dr. Nguyễn Al DO Emergency Provider Active Start : December 19, 2024 End: December 20, 2024 Dr. Jhonatan Garcia DO Primary Care Provider Active Start: December 19, [...] BE BASED ON THE PRIMARY CLINICAL RECORDS. [facility] [employer] provides no warranty or guarantee of the accuracy or completeness of information in this document.
[2024-12-27 23:54] LABS: Prothrombin Time (Protime)PT. 15.4 SECONDS (11.7-14.9)
[2024-12-27 23:55] LABS: Partial Thromboplast Time 28.4 Seconds (24.1-36.2)
--- NOTE | 2024-12-27 23:58 | EX.ED.DYSGE1 ---
HPI History of Present Illness Chief Complaint: Shortness of Breath Informant: patient and EMS Narrative Narrative: Brought in by EMS from [facility] palpitations feeling he was back in A-fib 10 PM 90 minutes prior to arrival. History of A-fib for years followed by cardiology in [place] ([place]). He had right ankle fracture displaced 8 weeks ago with Ex-Fix. He states Ex-Fix was removed 2 days ago with Xarelto held. He has been taking his Tikosyn. Xarelto restarted 7 PM this evening. He states infection of his Ex-Fix he is currently on antibiotics with a PICC line. No cough. Has dyspnea with his A-fib. Denies chest pains. Denies recent vomiting or diarrhea. Denies any urinary symptoms. Reports he has been cardioverted in the past. Prior similar symptoms: Yes [facility] Medical History (Updated 12/28/24 @ 05:[address] Nguyễn Al DO) Major depression Hypokalemia Paroxysmal atrial fibrillation Ankle fracture, right Insomnia Obstructive sleep apnea Depression Hyperlipemia Cardiomyopathy Muscle weakness (generalized) Anxiety Asthma Type 2 diabetes mellitus COPD (chronic obstructive pulmonary disease) CHF (congestive heart failure) Glaucoma Gout Diabetes Hypertension Home Medications Medication Instructions Recorded Last Taken Type allopurinol 100 mg tablet 100 mg PO DAILY 10/23/22 Unknown History amlodipine 5 mg tablet 5 mg PO DAILY 10/23/22 Unknown History hydrochlorothiazide 50 mg tablet 50 mg PO DAILY 10/23/22 Unknown History omeprazole 40 mg capsule,delayed 40 mg PO DAILY 10/23/22 Unknown History release rivaroxaban 20 mg tablet (Xarelto) 20 mg PO DAILY #30 tabs 10/23/22 Unknown Rx albuterol sulfate 2.5 mg/3 mL 2.5 mg inhalation Q6H 12/19/24 Unknown History (0.083 %) solution for nebulization bempedoic acid 180 mg tablet 180 mg PO DAILY 12/19/24 Unknown History (Nexletol) dofetilide 250 mcg capsule 250 mcg PO BID 12/19/24 Unknown History duloxetine 20 mg capsule,delayed 20 mg PO DAILY 12/19/24 Unknown History release metoprolol succinate 100 mg 100 mg PO BID 12/19/24 Unknown History tablet,extended release 24 hr potassium chloride 20 mEq 20 meq PO DAILY 12/19/24 Unknown History tablet,extended release(part/cryst) pravastatin 40 mg tablet 40 mg PO DAILY 12/19/24 Unknown History spironolactone 25 mg tablet 25 mg PO DAILY 12/19/24 Unknown History tizanidine 2 mg tablet 2 mg PO Q8H PRN muscle spasticity 12/19/24 Unknown History trazodone 100 mg tablet 100 mg PO QHS 12/19/24 Unknown History acetaminophen 325 mg capsule 650 mg PO Q4H PRN fever or pain 12/20/24 Unknown History cetirizine 10 mg tablet 10 mg PO DAILY 12/20/24 Unknown History dulaglutide 1.5 mg/0.5 mL 1.5 mg subcut .WEEKLY 12/20/24 Unknown History subcutaneous pen injector (Trulicity) fluticasone 100 mcg-salmeterol 50 1 inh inhalation BID 12/20/24 Unknown History mcg/dose blistr powdr for inhalation (Advair Diskus) fluticasone 100 mcg-salmeterol 50 2 inh inhalation BID 12/20/24 Unknown History mcg/dose blistr powdr for inhalation (Advair Diskus) piperacillin-tazobactam 2.25 2.25 g IV Q8H 12/27/24 Unknown History gram/50 mL in dextrose(iso) IV piggyback (Zosyn) Allergy/AdvReac Type Severity Reaction Status Date / Time [id number] Reductase Allergy Mild Hives Verified 12/27/24 23:23 Inhibitor Iodinated Contrast Media AdvReac Intermediate Rash Verified 12/27/24 23:23 (contrast dye - iodinated) Social History housing: longterm Smoking Status: Former smoker ROS ROS ED Constitutional Constitutional ED: Denies chills, fever(s) or sweats ENT ENT ED: Denies sore throat Cardiovascular Cardiovascular: Reports palpitations; Denies chest pain, leg edema or racing heartbeat Respiratory/Chest Respiratory/Chest: Reports dyspnea; Denies cough or dyspnea on exertion Gastrointestinal Gastrointestinal: Denies abdominal pain, diarrhea, nausea or vomiting Genitourinary Genitourinary ED: Denies dysuria, hematuria or urinary frequency Musculoskeletal Musculoskeletal: Denies back pain, extremity pain or neck pain Integumentary Denies rash or wounds Neurologic Neurologic: Denies headache(s), paresthesias or weakness EXAM Physical Exam Const Vital Signs: 12/27/24 23:19 12/27/24 23:22 12/27/24 23:24 Temperature 100 F H 100 F H Temperature Source Oral Oral Pulse Rate 149 H 138 H Pulse Rate [1 (Initial Baseline)] Pulse Rate [2] Pulse Rate [3] Respiratory Rate 19 H 20 H Respiratory Rate [1 (Initial Baseline)] Respiratory Rate [2] Respiratory Rate [3] Respiratory Effort Short of Breath Respiratory Depth Normal Respiratory Pattern Normal Blood Pressure 127/96 H 127/96 H Blood Pressure [2] Blood Pressure [3] Blood Pressure Mean 106 106 Baseline BP Pulse Ox 93 93 Oxygen Delivery Method Room Air Room Air Room Air Oxygen Delivery Method [1 (Initial Baseline)] Oxygen Delivery Method [2] Oxygen Delivery Method [3] Oxygen Flow Rate (L/min) Oxygen Flow Rate (L/min) [1 (Initial Baseline)] Oxygen Flow Rate (L/min) [2] Oxygen Flow Rate (L/min) [3] EtCo2 - Document during CPR and with ROSC EtCo2 - Document during CPR and with ROSC [1 (Initial Baseline)] EtCo2 - Document during CPR and with ROSC [2] EtCo2 - Document during CPR and with ROSC [3] 12/28/24 00:11 12/28/24 00:30 12/28/24 00:31 Temperature 100.1 F H Temperature Source Pulse Rate 134 H Pulse Rate [1 (Initial Baseline)] 135 H Pulse Rate [2] 101 H Pulse Rate [3] 106 H Respiratory Rate 21 H Respiratory Rate [1 (Initial Baseline)] 21 H Respiratory Rate [2] 29 H Respiratory Rate [3] 26 H Respiratory Effort Respiratory Depth Respiratory Pattern Blood Pressure 109/58 L Blood Pressure [2] 102/87 H Blood Pressure [3] 119/91 H Blood Pressure Mean Baseline BP 109/58 Pulse Ox 97 Oxygen Delivery Method Nasal Cannula Oxygen Delivery Method [1 (Initial Baseline)] Nasal Cannula Oxygen Delivery Method [2] Nasal Cannula Oxygen Delivery Method [3] Nasal Cannula Oxygen Flow Rate (L/min) 2 Oxygen Flow Rate (L/min) [1 (Initial Baseline)] 4 Oxygen Flow Rate (L/min) [2] 4 Oxygen Flow Rate (L/min) [3] 4 EtCo2 - Document during CPR and with ROSC 41 18 EtCo2 - Document during CPR and with ROSC [1 (Initial Baseline)] 45 EtCo2 - Document during CPR and with ROSC [2] 47 EtCo2 - Document during CPR and with ROSC [3] 43 12/28/24 00:41 12/28/24 00:44 12/28/24 00:46 Temperature 100.0 F H Temperature Source Oral Pulse Rate 129 H 120 H 125 H Pulse Rate [1 (Initial Baseline)] Pulse Rate [2] Pulse Rate [3] Respiratory Rate 23 H 17 17 Respiratory Rate [1 (Initial Baseline)] Respiratory Rate [2] Respiratory Rate [3] Respiratory Effort Respiratory Depth Respiratory Pattern Blood Pressure 120/94 H 116/91 H 116/91 H Blood Pressure [2] Blood Pressure [3] Blood Pressure Mean 99 Baseline BP Pulse Ox 100 95 94 Oxygen Delivery Method Nasal Cannula Nasal Cannula Room Air Oxygen Delivery Method [1 (Initial Baseline)] Oxygen Delivery Method [2] Oxygen Delivery Method [3] Oxygen Flow Rate (L/min) 4 4 Oxygen Flow Rate (L/min) [1 (Initial Baseline)] Oxygen Flow Rate (L/min) [2] Oxygen Flow Rate (L/min) [3] EtCo2 - Document during CPR and with ROSC 43 38 EtCo2 - Document during CPR and with ROSC [1 (Initial Baseline)] EtCo2 - Document during CPR and with ROSC [2] EtCo2 - Document during CPR and with ROSC [3] 12/28/24 00:51 12/28/24 01:00 12/28/24 01:33 Temperature 100 F H Temperature Source Oral Pulse Rate 124 H 86 75 Pulse Rate [1 (Initial Baseline)] Pulse Rate [2] Pulse Rate [3] Respiratory Rate 19 H 21 H 22 H Respiratory Rate [1 (Initial Baseline)] Respiratory Rate [2] Respiratory Rate [3] Respiratory Effort Respiratory Depth Respiratory Pattern Blood Pressure 114/73 87/62 L 93/61 Blood Pressure [2] Blood Pressure [3] Blood Pressure Mean 70 71 Baseline BP Pulse Ox 95 94 94 Oxygen Delivery Method Room Air Room Air Room Air Oxygen Delivery Method [1 (Initial Baseline)] Oxygen Delivery Method [2] Oxygen Delivery Method [3] Oxygen Flow Rate (L/min) Oxygen Flow Rate (L/min) [1 (Initial Baseline)] Oxygen Flow Rate (L/min) [2] Oxygen Flow Rate (L/min) [3] EtCo2 - Document during CPR and with ROSC 45 EtCo2 - Document during CPR and with ROSC [1 (Initial Baseline)] EtCo2 - Document during CPR and with ROSC [2] EtCo2 - Document during CPR and with ROSC [3] 12/28/24 02:00 12/28/24 03:00 Temperature 98.9 F 97.5 F L Temperature Source Oral Oral Pulse Rate 110 H 112 H Pulse Rate [1 (Initial Baseline)] Pulse Rate [2] Pulse Rate [3] Respiratory Rate 20 H 18 Respiratory Rate [1 (Initial Baseline)] Respiratory Rate [2] Respiratory Rate [3] Respiratory Effort Respiratory Depth Respiratory Pattern Blood Pressure 98/71 104/80 Blood Pressure [2] Blood Pressure [3] Blood Pressure Mean 80 88 Baseline BP Pulse Ox 95 96 Oxygen Delivery Method Room Air Room Air Oxygen Delivery Method [1 (Initial Baseline)] Oxygen Delivery Method [2] Oxygen Delivery Method [3] Oxygen Flow Rate (L/min) Oxygen Flow Rate (L/min) [1 (Initial Baseline)] Oxygen Flow Rate (L/min) [2] Oxygen Flow Rate (L/min) [3] EtCo2 - Document during CPR and with ROSC EtCo2 - Document during CPR and with ROSC [1 (Initial Baseline)] EtCo2 - Document during CPR and with ROSC [2] EtCo2 - Document during CPR and with ROSC [3] Positive well nourished and well developed General Appearance ED: well developed and NAD HEENT Reports moist mucous membranes normocephalic and atraumatic Eyes General Eye ED: Yes normal appearance of both eyes Neck full ROM Chest Wall Chest: Negative for tenderness Resp normal respiratory effort and normal air movement Effort and Inspection: symmetric chest movement; Negative for respiratory distress Cardio Rate: tachycardic Rhythm: abnormal rhythm Peripheral Pulses: pulses 2+ throughout GI normal to inspection, nondistended, normoactive bowel sounds and non-tender Palpation: Negative for guarding or rebound tenderness present Extremity Extremity Narrative: Right lower extremity: With dressing. General Extremety ED: Negative for edema or tenderness General Extremity: Negative for edema Neuro oriented x3 and no sensory deficits noted Sensorium / Orientation: awake and alert Skin Skin Narrative: Right upper extremity: PICC line clean, dry, intact. MDM MDM MDM Narrative Medical decision making narrative: Interventions / MDM: Differential diagnosis: Atrial fibrillation RVR, current treatment for hardware infection which has been removed Diagnosis considered but do not suspect: N/A My EKG interpretation: A-fib RVR rate 152, no ST or T wave changes. Imaging independently reviewed and interpreted by myself: 1 view chest x-ray: No acute process. External documents reviewed: N/A Test considered but not ordered:N/A ED course: Patient had recurrent A-fib with RVR he knows when he goes out of rhythm this was 90 minutes ago. He restarted his Xarelto after being off for 2 days at 7 PM. He is on Tikosyn. Being treated for Ex-Fix infection with the PICC line. No cough no vomiting or diarrhea. Labs were drawn. Blood pressure systolic 138. Heart rate ranging 120s to 140s. 2230: I spoke with covering computer bookkeeper Dr. Mitchell, discussed patient's history of being off Xarelto for couple days however did restart it at 7 AM symptoms were known to restart 90 minutes prior to arrival. He states okay to cardiovert. Patient last ate at 5 PM. Discussed this with patient who agrees. Will set up for cardioversion. 0031: Written consent risk and benefits discussed with the patient. 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 Patient initially given propofol 60 mg good analgesia performed, synchronized cardioversion attempted at 150, 175, 200 J. There is brief sinus that would back to atrial fibrillation. Additional 20 mg propofol was given, I attempted synchronized additional 200 J twice with pressure on the pads with 2 towels, brief sinus rhythm back to atrial fibrillation. I did give him 20 of IV Cardizem heart rate was going down to 70s 80s however still A-fib I did rediscuss with cardiology, discussed if increases can start Cardizem. 0305: Monitoring throughout still A-fib heart rate 100s to 110s. Blood pressure in the 90s. Electrolytes normal. I spoke with hospitalist Dr. Monson, we will order for oral Cardizem of 60. Will admit to PCU. Discussed current treatment for his bacteremia. Re-evaluation: stable Disposition discussed with patient/family/significant other: Patient Case discussed with consulting clinician: Cardiology, hospitalist This note was generated with [employer] software. It may contain incorrect words, spelling, and punctuation that were not noted in checking the note before signing. Lab Data Attestation: I reviewed the patient's lab results. Labs: Laboratory Results - last 24 hr 12/27/24 23:34 WBC 6.0 RBC 5.02 Hgb 13.6 Hct 42.7 MCV 85.1 MCH 27.1 MCHC 31.9 L RDW Std Deviation 41.7 RDW Coeff of Tee 13.4 Plt Count 146 L MPV 10.3 Immature Gran % (Auto) 0.500 Neut % (Auto) 68.5 Lymph % (Auto) 17.2 L [place] % (Auto) 11.8 H Eos % (Auto) 1.3 Baso % (Auto) 0.7 Absolute Neuts (auto) 4.1 Absolute Lymphs (auto) 1.04 Nucleated RBC % 0 PT 15.4 H INR 1.2 APTT 28.4 Sodium 136 Potassium 3.7 Chloride 101 Carbon Dioxide 26.0 Anion Gap 9 BUN 9 Creatinine 0.79 Estim Creat Clear Calc 152.63 Est GFR (MDRD) Non-Af 106 BUN/Creatinine Ratio 10.9 Glucose 167 H Calcium 8.7 Radiography Diagnostic Testing: Clinical Impression(s) from Imaging Studies Chest X-Ray 12/27/24 23:40 IMPRESSION: No acute cardiopulmonary disease. Reading Location: [facility] Procedures Procedural Sedation 1 (Initial Baseline): Consent Signed: Yes Any Problems With Anesthesia: No You/Your family experience fever (hyperthermia) w/anesthesia: Unknown Sedation medication: Propofol Dose: 80 Route: IV Maliampati Score: Class III ASA Classification: III Critical Care Time Critical Care Time: Yes Critical care time (excluding procedures): 30-74 minutes, Discussing w/Patient &/or Family/Intermediate Project Manager, Discussing w/Consultants, Arranging Admission or Transfer, Performing Direct Patient Care at Bedside and - (45 minutes) Discharge Plan Dx/Rx/DC Orders Clinical Impression: Atrial fibrillation with RVR, Bacteremia, Palpitations, Postoperative infection Disposition Disposition: Acute Care Hospital [facility] Discharge Date/Time: 12/28/24 04:06
[2024-12-28] VITALS (18 sets, daily range): BP systolic 87–142; BP diastolic 58–94; PULSE 60–135; RESP 17–29; TEMP 36.1–37.8; O2SAT 92–100; BMI 46.3
[2024-12-28 00:14] LABS: Anion Gap 9 (5-15); BUN 9 mg/dL (4-19); BUN/Creat Ratio 10.9 RATIO (10-20); Calcium,Total 8.7 mg/dL (7.6-11.0); Carbon Dioxide 26.0 mmol/L (21.0-32.0); Chloride 101 mmol/L (98-108); Estimated Creatinine Clearance 152.63 ml/min (50-250); Glucose 167 mg/dL (70-99); Potassium 3.7 mmol/L (3.3-5.1)
[2024-12-28 00:20] LABS: Hematocrit 42.7 % (40-54); Hemoglobin 13.6 g/dL (13.0-16.5); Immature Granulocytes Count 0.030 X10^3/uL (0.0-0.0); Mean Corp Hgb Conc 31.9 g/dL (32-36); Mean Corpuscular Volume 85.1 fL (80-94); Mean Platelet Vol. 10.3 fl (6.2-12.0); NRBC Flagged by Analyzer 0 % (0-5); Platelet Count 146 K/mm3 (150-450); RBC Distribution Width CV 13.4 % (11.6-14.6); RBC Distribution Width SD 41.7 fl (35.1-43.9); Red Blood Count 5.02 M/mm3 (4.6-6.2); White Blood Count 6.0 K/mm3 (4.4-11.0)
--- NOTE | 2024-12-28 03:07 | PCM.HP.STD ---
[facility] General General Date of Admission: 12/28/24 Date of Service: 12/28/24 Chief Complaint: Palpitations. [facility] Narrative SOCORRO HOROWITZ, is a 54 M with a past medical history of essential hypertension; on amlodipine, metoprolol twice daily plus hydrochlorothiazide and spironolactone, hyperlipidemia; on pravastatin and nexletol, morbid (class III) obesity; with BMI of 46.7 this admission, KOFFI; on CPAP, DM-2; of unknown control on dulaglutide, paroxysmal atrial fibrillation; s/p DCCV on dofetilide twice daily plus rivaroxaban, history of CHF, history of cardiomyopathy, former tobacco abuse with subsequent asthma/COPD; on fluticasone bupropion-salmeterol twice daily, depression with anxiety; on duloxetine and trazodone, muscle spasms; on tizanidine 3 times daily as needed, GERD; on omeprazole, gout; on allopurinol, OA, recent admission here on December 20, 2024 to December 21, 2024 for IV contra extravasation into his Right hand with subsequent swelling and blistering of his Right hand and arm; with plastic surgery consulted and patient subsequently conservative treated with antibiotic ointment and recent history of displaced Right ankle fracture; s/p Ex-Fix with subsequent infection requiring RUE PICC line placement with patient to be on IV piperacillin-tazobactam with the patient on his 2nd of 8 weeks due to bacteremia with patient recently restarted on rivaroxaban at 7 PM yesterday evening who presents to [facility] ER complaining of palpitations. Mr. Horowitz reports his symptoms began ~90 minutes prior to arrival with the abrupt-onset of palpitations. He states the symptoms are typical of his previous bouts of atrial fibrillation with rapid ventricular response. He admits to associated shortness of breath but he denies chest pain. He claims he has been taking his dofetilide as prescribed. He denies associated fever, chills, runny nose, sore throat, ear pain, cough, dysuria, hematuria, headache or rash. In the ER he underwent multiple unsuccessful attempts at DC cardioversion with atrial fibrillation; with rapid ventricular response at ~150 bpm requiring additional treatment with 20 mg IV Cardizem bolus x 1 with persistent RVR in the ~110 beeper minute range requiring additional p.o. Cardizem with fever of 100 °F in the setting of previously known postoperative infection of Right ankle fracture; s/p Ex-Fix with CXR that revealed no acute cardiopulmonary process. He was then admitted to the PCU for ongoing care for stay that is expected to extend beyond 2 midnights. [facility] Medical History (Updated 12/28/24 @ 05:[address] Nguyễn Al DO) Major depression Hypokalemia Paroxysmal atrial fibrillation Ankle fracture, right Insomnia Obstructive sleep apnea Depression Hyperlipemia Cardiomyopathy Muscle weakness (generalized) Anxiety Asthma Type 2 diabetes mellitus COPD (chronic obstructive pulmonary disease) CHF (congestive heart failure) Glaucoma Gout Diabetes Hypertension Home Medications Medication Instructions Recorded Last Taken Type allopurinol 100 mg tablet 100 mg PO DAILY 10/23/22 Unknown History amlodipine 5 mg tablet 5 mg PO DAILY 10/23/22 Unknown History hydrochlorothiazide 50 mg tablet 50 mg PO DAILY 10/23/22 Unknown History omeprazole 40 mg capsule,delayed 40 mg PO DAILY 10/23/22 Unknown History release rivaroxaban 20 mg tablet (Xarelto) 20 mg PO DAILY #30 tabs 10/23/22 Unknown Rx albuterol sulfate 2.5 mg/3 mL 2.5 mg inhalation Q6H 12/19/24 Unknown History (0.083 %) solution for nebulization bempedoic acid 180 mg tablet 180 mg PO DAILY 12/19/24 Unknown History (Nexletol) dofetilide 250 mcg capsule 250 mcg PO BID 12/19/24 Unknown History duloxetine 20 mg capsule,delayed 20 mg PO DAILY 12/19/24 Unknown History release metoprolol succinate 100 mg 100 mg PO BID 12/19/24 Unknown History tablet,extended release 24 hr potassium chloride 20 mEq 20 meq PO DAILY 12/19/24 Unknown History tablet,extended release(part/cryst) pravastatin 40 mg tablet 40 mg PO DAILY 12/19/24 Unknown History spironolactone 25 mg tablet 25 mg PO DAILY 12/19/24 Unknown History tizanidine 2 mg tablet 2 mg PO Q8H PRN muscle spasticity 12/19/24 Unknown History trazodone 100 mg tablet 100 mg PO QHS 12/19/24 Unknown History acetaminophen 325 mg capsule 650 mg PO Q4H PRN fever or pain 12/20/24 Unknown History cetirizine 10 mg tablet 10 mg PO DAILY 12/20/24 Unknown History dulaglutide 1.5 mg/0.5 mL 1.5 mg subcut .WEEKLY 12/20/24 Unknown History subcutaneous pen injector (Trulicity) fluticasone 100 mcg-salmeterol 50 1 inh inhalation BID 12/20/24 Unknown History mcg/dose blistr powdr for inhalation (Advair Diskus) fluticasone 100 mcg-salmeterol 50 2 inh inhalation BID 12/20/24 Unknown History mcg/dose blistr powdr for inhalation (Advair Diskus) piperacillin-tazobactam 2.25 2.25 g IV Q8H 12/27/24 Unknown History gram/50 mL in dextrose(iso) IV piggyback (Zosyn) Allergy/AdvReac Type Severity Reaction Status Date / Time [id number] Reductase Allergy Mild Hives Verified 12/27/24 23:23 Inhibitor Iodinated Contrast Media AdvReac Intermediate Rash Verified 12/27/24 23:23 (contrast dye - iodinated) Social History housing: long-term Smoking Status: Former smoker ROS ROS Narrative Review of Systems: Constitutional: Patient noted to have fever of 100 °F present on admission but he denies chills or sweats. Eyes: Patient denies change in vision or discharge from eyes. ENT: Patient denies runny nose, sore throat or ear pain. Resp: Patient admits to shortness of breath that coincides with his A-fib; with RVR. He denies cough. CV: Patient admits to palpitations but he denies chest pain, heart racing or lower extremity edema. GI: Patient denies abdominal pain, nausea, vomiting, diarrhea or constipation. : Patient denies dysuria, hematuria or urinary frequency. MSK: Patient denies arthralgias or myalgias. Skin: Patient denies rash, abscess, wounds or jaundice. Psych: Patient denies symptoms of uncontrolled depression or anxiety. Neuro: Patient denies headache, paresthesias or focal neurologic deficits. Allergy: Patient denies lip swelling, tongue swelling or urticaria. Hematology: Patient admits to easy bleeding and easy bruisability on rivaroxaban. Endocrinology: Patient denies polyuria, polydipsia, polyphagia or heat/cold intolerance. 14 point ROS otherwise negative except for positives noted above in HPI. Vital Signs Vital Signs Vital Signs: 12/27/24 23:19 12/27/24 23:22 12/27/24 23:24 Temperature 100 F H 100 F H Temperature Source Oral Oral Pulse Rate 149 H 138 H Pulse Rate [1 (Initial Baseline)] Pulse Rate [2] Pulse Rate [3] Respiratory Rate 19 H 20 H Respiratory Rate [1 (Initial Baseline)] Respiratory Rate [2] Respiratory Rate [3] Respiratory Effort Short of Breath Respiratory Depth Normal Respiratory Pattern Normal Blood Pressure 127/96 H 127/96 H Blood Pressure [2] Blood Pressure [3] Blood Pressure Mean 106 106 Baseline BP Pulse Ox 93 93 Oxygen Delivery Method Room Air Room Air Room Air Oxygen Delivery Method [1 (Initial Baseline)] Oxygen Delivery Method [2] Oxygen Delivery Method [3] Oxygen Flow Rate (L/min) Oxygen Flow Rate (L/min) [1 (Initial Baseline)] Oxygen Flow Rate (L/min) [2] Oxygen Flow Rate (L/min) [3] EtCo2 - Document during CPR and with ROSC EtCo2 - Document during CPR and with ROSC [1 (Initial Baseline)] EtCo2 - Document during CPR and with ROSC [2] EtCo2 - Document during CPR and with ROSC [3] 12/28/24 00:11 12/28/24 00:30 12/28/24 00:31 Temperature 100.1 F H Temperature Source Pulse Rate 134 H Pulse Rate [1 (Initial Baseline)] 135 H Pulse Rate [2] 101 H Pulse Rate [3] 106 H Respiratory Rate 21 H Respiratory Rate [1 (Initial Baseline)] 21 H Respiratory Rate [2] 29 H Respiratory Rate [3] 26 H Respiratory Effort Respiratory Depth Respiratory Pattern Blood Pressure 109/58 L Blood Pressure [2] 102/87 H Blood Pressure [3] 119/91 H Blood Pressure Mean Baseline BP 109/58 Pulse Ox 97 Oxygen Delivery Method Nasal Cannula Oxygen Delivery Method [1 (Initial Baseline)] Nasal Cannula Oxygen Delivery Method [2] Nasal Cannula Oxygen Delivery Method [3] Nasal Cannula Oxygen Flow Rate (L/min) 2 Oxygen Flow Rate (L/min) [1 (Initial Baseline)] 4 Oxygen Flow Rate (L/min) [2] 4 Oxygen Flow Rate (L/min) [3] 4 EtCo2 - Document during CPR and with ROSC 41 18 EtCo2 - Document during CPR and with ROSC [1 (Initial Baseline)] 45 EtCo2 - Document during CPR and with ROSC [2] 47 EtCo2 - Document during CPR and with ROSC [3] 43 12/28/24 00:41 12/28/24 00:44 12/28/24 00:46 Temperature 100.0 F H Temperature Source Oral Pulse Rate 129 H 120 H 125 H Pulse Rate [1 (Initial Baseline)] Pulse Rate [2] Pulse Rate [3] Respiratory Rate 23 H 17 17 Respiratory Rate [1 (Initial Baseline)] Respiratory Rate [2] Respiratory Rate [3] Respiratory Effort Respiratory Depth Respiratory Pattern Blood Pressure 120/94 H 116/91 H 116/91 H Blood Pressure [2] Blood Pressure [3] Blood Pressure Mean 99 Baseline BP Pulse Ox 100 95 94 Oxygen Delivery Method Nasal Cannula Nasal Cannula Room Air Oxygen Delivery Method [1 (Initial Baseline)] Oxygen Delivery Method [2] Oxygen Delivery Method [3] Oxygen Flow Rate (L/min) 4 4 Oxygen Flow Rate (L/min) [1 (Initial Baseline)] Oxygen Flow Rate (L/min) [2] Oxygen Flow Rate (L/min) [3] EtCo2 - Document during CPR and with ROSC 43 38 EtCo2 - Document during CPR and with ROSC [1 (Initial Baseline)] EtCo2 - Document during CPR and with ROSC [2] EtCo2 - Document during CPR and with ROSC [3] 12/28/24 00:51 12/28/24 01:00 12/28/24 01:33 Temperature 100 F H Temperature Source Oral Pulse Rate 124 H 86 75 Pulse Rate [1 (Initial Baseline)] Pulse Rate [2] Pulse Rate [3] Respiratory Rate 19 H 21 H 22 H Respiratory Rate [1 (Initial Baseline)] Respiratory Rate [2] Respiratory Rate [3] Respiratory Effort Respiratory Depth Respiratory Pattern Blood Pressure 114/73 87/62 L 93/61 Blood Pressure [2] Blood Pressure [3] Blood Pressure Mean 70 71 Baseline BP Pulse Ox 95 94 94 Oxygen Delivery Method Room Air Room Air Room Air Oxygen Delivery Method [1 (Initial Baseline)] Oxygen Delivery Method [2] Oxygen Delivery Method [3] Oxygen Flow Rate (L/min) Oxygen Flow Rate (L/min) [1 (Initial Baseline)] Oxygen Flow Rate (L/min) [2] Oxygen Flow Rate (L/min) [3] EtCo2 - Document during CPR and with ROSC 45 EtCo2 - Document during CPR and with ROSC [1 (Initial Baseline)] EtCo2 - Document during CPR and with ROSC [2] EtCo2 - Document during CPR and with ROSC [3] 12/28/24 02:00 Temperature 98.9 F Temperature Source Oral Pulse Rate 110 H Pulse Rate [1 (Initial Baseline)] Pulse Rate [2] Pulse Rate [3] Respiratory Rate 20 H Respiratory Rate [1 (Initial Baseline)] Respiratory Rate [2] Respiratory Rate [3] Respiratory Effort Respiratory Depth Respiratory Pattern Blood Pressure 98/71 Blood Pressure [2] Blood Pressure [3] Blood Pressure Mean 80 Baseline BP Pulse Ox 95 Oxygen Delivery Method Room Air Oxygen Delivery Method [1 (Initial Baseline)] Oxygen Delivery Method [2] Oxygen Delivery Method [3] Oxygen Flow Rate (L/min) Oxygen Flow Rate (L/min) [1 (Initial Baseline)] Oxygen Flow Rate (L/min) [2] Oxygen Flow Rate (L/min) [3] EtCo2 - Document during CPR and with ROSC EtCo2 - Document during CPR and with ROSC [1 (Initial Baseline)] EtCo2 - Document during CPR and with ROSC [2] EtCo2 - Document during CPR and with ROSC [3] Weight Weight: 316 lb 3.2 oz Body Mass Index (BMI) 46.7 Physical Exam Const alert, oriented x3 and no apparent distress Constitutional Narrative: Morbidly obese with nontoxic appearance and patient appearing older than stated age. General Appearance: cooperative HEENT normocephalic, head/scalp atraumatic, hearing grossly normal bilaterally and moist oral mucous membranes Eyes PERRL, EOMs intact bilaterally and conjunctivae normal Neck no lymphadenopathy, supple and no JVD Resp normal respiratory effort, no retractions, no use of accessory muscles and clear to auscultation bilaterally Cardio Cardio Narrative: Irregularly irregular at ~110 bpm. GI normal to inspection, nondistended, normoactive bowel sounds, soft to palpation, non-tender and non-distended GI Narrative: Morbidly obese. Extremity normal to inspection, full ROM and no clubbing, cyanosis or edema Extremity Narrative: Patient has RUE PICC line with no signs of surrounding inflammation or infection. Skin Skin Narrative: Patient with evidence of recent Right ankle Ex-Fix with no evidence of rash, abscess, wounds or jaundice. Neuro oriented x3, CN's II-XII intact bilaterally, moves all extremities and no focal motor deficits Sensorium / Orientation: awake, alert, oriented to person, oriented to place and oriented to time Speech: speech normal Psych affect normal Results Lab / Micro Data 12/27/24 23:34 12/27/24 23:34 Labs: Laboratory Results - last 24 hr 12/27/24 23:34: WBC 6.0, RBC 5.02, Hgb 13.6, Hct 42.7, MCV 85.1, MCH 27.1, MCHC 31.9 L, RDW Std Deviation 41.7, RDW Coeff of Tee 13.4, Plt Count 146 L, MPV 10.3, Immature Gran % (Auto) 0.500, Neut % (Auto) 68.5, Lymph % (Auto) 17.2 L, Mcpherson % (Auto) 11.8 H, Eos % (Auto) 1.3, Baso % (Auto) 0.7, Absolute Neuts (auto) 4.1, Absolute Lymphs (auto) 1.04, Nucleated RBC % 0, PT 15.4 H, INR 1.2, APTT 28.4, Sodium 136, Potassium 3.7, Chloride 101, Carbon Dioxide 26.0, Anion Gap 9, BUN 9, Creatinine 0.79, Estim Creat Clear Calc 152.63, Est GFR (MDRD) Non-Af 106, BUN/Creatinine Ratio 10.9, Glucose 167 H, Calcium 8.7 Imaging Radiology Impression Chest X-Ray 12/27/24 23:40 IMPRESSION: No acute cardiopulmonary disease. Reading Location: [facility] Assessment & Plan Assessment/Plan (1) Atrial fibrillation with RVR: (2) Chronic anticoagulation: (3) Fever: QUALIFIERS: Fever type: unspecified Qualified Code(s): R50.9 - Fever, unspecified (4) Postoperative infection: QUALIFIERS: Encounter type: sequela Postoperative infection type: unspecified type Qualified Code(s): T81.40XS - Infection following a procedure, unspecified, sequela (5) History of fracture of right ankle: (6) Morbid obesity with BMI of 45.0-49.9, adult: (7) Obstructive sleep apnea: (8) Palpitations: PLAN: Plan 1. Atrial Fibrillation; with Rapid Ventricular Response refractory to treatment with IV diltiazem and multiple attempts at DC cardioversion in the setting of known paroxysmal atrial fibrillation with patient already on rivaroxaban and dofetilide - Admit to PCU. If patient's heart rate does not improve he will require treatment with IV amiodarone as his blood pressure is now 98 mm systolic. Check echocardiogram to evaluate LVEF. Serialize troponin. Check TSH. Finally, we will consult [facility] see this patient on rounds in the a.m. for further recommendations with help appreciated in advance. 2. Fever of 100 °F in the setting of previously known postoperative infection of Right ankle fracture; s/p Ex-Fix with RUE PICC already on IV piperacillin-tazobactam for projected 8 weeks complicating and likely precipitating #1 - Maintain IV piperacillin-tazobactam as previous. Give acetaminophen as needed for [id number] (level 1-5/10) pain or fever. Give oxycodone as needed for severe (level 6-10/10) pain. 3. Morbid (class III) obesity; with BMI of 46.7 this admission plus KOFFI; on CPAP adding to the burden of disease outlined in #1 & #2 - Weight loss will be recommended. Check TSH. This complicates his case and may hamper recovery. 4. Recent admission here on December 20, 2024 to December 21, 2024 for IV contra extravasation into his Right hand with subsequent swelling and blistering of his Right hand and arm; with plastic surgery consulted and patient subsequently conservative treated with antibiotic ointment - Noted. 5. Essential hypertension; on amlodipine, metoprolol twice daily plus hydrochlorothiazide and spironolactone - Hold scheduled antihypertensives with relative hypotension noted at this time. 6. Hyperlipidemia; on pravastatin and nexletol - Maintain home regimen. 7. DM-2; of unknown control on dulaglutide - ADA/cardiac diet. FSBS q. AC/HS plus SSI. Check HgbA1c to objectively assess quality of diabetic control. 8. History of CHF; of uncertain type - Echocardiogram pending for #1. Patient has no signs of volume overload at this time. 9. History of cardiomyopathy - Noted with echocardiogram pending for #1. 10. Former tobacco abuse with subsequent asthma/COPD; on fluticasone bupropion-salmeterol twice daily - Stable with no evidence of acute flare at this time. Minimize breathing treatments as much as possible to avoid exacerbating RVR. 11. Depression with anxiety; on duloxetine and trazodone - Resume present therapy. 12. Muscle spasms; on tizanidine 3 times daily as needed - Continue current treatment. 13. GERD; on omeprazole - Maintain PPI. 14. Gout; on allopurinol - Stable without evidence of acute flare at this time. Resume allopurinol as before. 15. OA - We will follow pain regimen and scales outlined in #2. 16. DVT prophylaxis - Patient is already on rivaroxaban for #1 which will be continued. Total time: Approximately (but not less than) 75 minutes. Charges/Coding Visit Charges Inpatient E&M: 30391 Init Hosp L3
--- OUTSIDE RECORDS SUMMARY | 2024-12-28 03:32 | XMS RPT_ITS | CCD ---
Author Organization [facility] Team Providers Care Geotechnician Name Role Phone Zacarias Cohn Referring Unavailable [...] Primary Care Unavailable GIRMA CORREA Attending Unavailable [facility] Primary Care Unavailable [facility] Attending Unavailable [facility] Primary Care Unavailable DEMI HUSTON MD Attending Unavailable LORSON, ECORSE Primary Care Unavailable DEMI HUSTON MD Attending Unavailable LORSON, [place]ORSE Primary Care Unavailable SAMY JONES Attending Unavailable [facility] Primary Care Unavailable CINDY HERNANDEZ MD Consulting Unavailable EDWARDO PETTIT, DR LEVIN Attending Unavailabl e LORSON, [place]ORSE Primary Care Unavailable [facility] Primary Care Unavailable ANY ISREAL STONEA D Attending Unavailable L[place]SON, [place] Primary Care Unavailable ANY DO SLOANE D Attending Unavailable [facility] Admitting Unavailable [facility] Attending Unavailable [facility] Primary Care Unavailable [facility] Primary Care Unavailable KAVYA REPRODUCTIVE HEALTHCARE ASSISTANT-TOP CLEANERJONNY Attending U JAKE Ring Attending Unavailable JAKE MAXWELL Primary Care Unavailable JAKE MAXWELL Admitting Unavailable [place] REPRODUCTIVE HEALTHCARE ASSISTANT-TOP CLEANER, [place] Primary Care Unavail able DELORES MURO DO Attending Unavailable MANSOOR PETTIT, DR SONNY Woods Consulting Unavailable AMANDA STONE, CIRILO Attending Unavailable [place] REPRODUCTIVE HEALTHCARE ASSISTANT-TOP CLEANER, [place] Primary Care Unavail able JEREMIE MCCORMACK MD Attending Unavailable [place] REPRODUCTIVE HEALTHCARE ASSISTANT-TOP CLEANER, [place] Primary Care Unavail able DR WILNER JOE MD Attending Unavailabl e [place] REPRODUCTIVE HEALTHCARE ASSISTANT-TOP CLEANER, [place] Primary Care Unavail able [place] REPRODUCTIVE HEALTHCARE ASSISTANT-TOP CLEANER, [place] Primary Care Unavail able CIRILO PATEL DO Attending Unavailable DR SAMY JONES MD, V Attending Unavai CINDY Vela MD Consulting Unavailable [place] REPRODUCTIVE HEALTHCARE ASSISTANT-TOP CLEANER, [place] Primary Care Unavail able DELORES MURO DO Admitting Unavailable DR ANGEL GARCES DO Attending Unavailable [place] REPRODUCTIVE HEALTHCARE ASSISTANT-TOP CLEANER, [place] Primary Care Unavail able [place] REPRODUCTIVE HEALTHCARE ASSISTANT-TOP CLEANER, [place] Primary Care Unavail able [place] REPRODUCTIVE HEALTHCARE ASSISTANT-TOP CLEANER, [place] Attending Unavail able [place] REPRODUCTIVE HEALTHCARE ASSISTANT-TOP CLEANER, [place] Primary Care Unavail able FARZANA REPRODUCTIVE HEALTHCARE ASSISTANT-TOP CLEANERHELEN Attending Unava ilable [facility] REPRODUCTIVE HEALTHCARE ASSISTANT-TOP CLEANER, [place] Primary Care Unavail able [place] REPRODUCTIVE HEALTHCARE ASSISTANT-TOP CLEANER, GIRMA Attending Unavail able [place] REPRODUCTIVE HEALTHCARE ASSISTANT-TOP CLEANER, [place] Primary Care Unavail able [facility] REPRODUCTIVE HEALTHCARE ASSISTANT-TOP CLEANER, GIRMA Attending Unavail able [place] REPRODUCTIVE HEALTHCARE ASSISTANT-TOP CLEANER, [place] Primary Care Unavail able [place] REPRODUCTIVE HEALTHCARE ASSISTANT-TOP CLEANER, GIRMA Attending Unavail able [place] REPRODUCTIVE HEALTHCARE ASSISTANT-TOP CLEANER, [place] Primary Care Unavail able [place] REPRODUCTIVE HEALTHCARE ASSISTANT-TOP CLEANER, GIRMA Attending Unavail able [place] REPRODUCTIVE HEALTHCARE ASSISTANT-TOP CLEANER, [place] Primary Care Unavail able [place] REPRODUCTIVE HEALTHCARE ASSISTANT-TOP CLEANER, GIRMA Attending Unavail able [place] WATER TECHNICIAN-C, [place] Primary Care Provider [phone] Jamila PETTIT, [...] Unavailable Austin Estrada Consulting Unavailable Jhonatan [facility] Care Unavailable Farzad Camilo Attending Unavailable Yaz Dee Consulting Unavailable Yaz Dee Consulting Unavailable Yaz Dee Attending Unavailable [facility] Care Unavailable Yaz Dee Admitting Unavailable Gudla AICHA, Dolly Attending Unavailable [place] WATER TECHNICIAN, [facility] Care Unavailable [place] WATER TECHNICIAN, [facility] Care Unavailable Gudla OLS, Dolly Attending Unavailable Gudla OLS, Dolly Referring Unavailable [place] WATER TECHNICIAN, [facility] Care Unavailable Gudla OLS, Dolly Attending Unavailable Gudla OLS, Dolly Attending Unavailable [place] WATER TECHNICIAN, [facility] Care Unavailable Gudla OLSLucianDolly Attending Unavailable Gudla OLS, Dolly Referring Unavailable [place] WATER TECHNICIAN, [facility] Care Unavailable Siska, Austin Consulting Unavailable Austin Estrada Attending Unavailable Farzad Camilo Consulting Unavailable Farzad Camilo Attending Unavailable Austin Estrada Attending Unavailable Jose Jhonatan [facility] Unavailable Nguyễn Al Attending Unavailable [facility] Unavailable [place] REPRODUCTIVE HEALTHCARE ASSISTANT-TOP CLEANER, [facility] Unavail able KORPI DO, NANI Admitting Unavailable KORPI DO NANI Attending Unavailable LUPE STONE, DR ORTIZ Consulting Unavailable CORRY DO, CHANTAL S Consulting Unavailable MELISSA MARIN MD Consulting Unavailable HOSPITALISTLARRY Consulting Unavailable NATALY PETTIT, BRENNON Attending Unavailable CINDY HERNANDEZ MD Admitting Unavailable [place] REPRODUCTIVE HEALTHCARE ASSISTANT-[facility], [facility] Unavail able ZOHREH LEON MD, HELENA Consulting Unavailable ALIZE PETTIT, DR UPTON Consulting Unavailable CINDY HERNANDEZ MD Consulting Unavailable NADIR PETTIT, DR JONES Admitting Unavailab le [facility]av[facility] able MOY WATTS MD Attending U JANAE Deras MD Consulting Unavailable ARIEL ZIMMER MD Consulting Unavailable MANSOOR PETTIT, DR SONNY Woods Admitting Unavailable [place] REPRODUCTIVE HEALTHCARE ASSISTANT-TOP CLEANER, [facility] Unavail able KORPI DO, NANI Consulting Unavailable MAXIME COLLINS DO Attending Unavailable TE CASEY MD Consulting Unavailable NATHANIEL PETTIT FACP, DELORES Ashton Consulting Unavail able LUIS PETTIT, DR GUAJARDO Consulting Unavailab herberth MARTIN MD, DR MAYRA ROBINS Consulting Unavaila ble [facility] REPRODUCTIVE HEALTHCARE ASSISTANT-TOP CLEANER, [facility] Unavail able PERNELL DEWITT MD Attending Unavailable ISABEL GOODSON MD, DR MAYRA ROBINS Consulting Unavaila jacob MAX MD, DR SONNY Woods Admitting Unavailable LASKOVSKI DO, SHAYLEE Consulting Unavailabl e SENIOR CATEGORY MANAGER DO, ANA LUISA Consulting Unavailable TE CASEY MD Consulting Unavailable CORRY DO, CHANTAL S Consulting Unavailable Zaina Rounding NurseTomer Unavailable Leo Tavera, Dr. Adrian Attending Provider Allergies Allergy Classification Reported Allergen(s) Allergy Type Date of Onset Reaction(s) Facility (9 sources) HMG-CoA reductase inhibitor; 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: [statins] Propensity to adverse reactions to drug myalgia [facility] (4 sources) Shihrmv-Iwj-Mjt Reductase Inhibitor Allergy to substance 5 [facility] (1 source) Becotot-Qrp-Bxn Reductase Inhibitor Drug allergy (disorder) 5 [facility] (1 source) Contrast media; 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: [iodinated radiocontrast agents] Drug allergy [facility] Medications Current Medications Medication Drug Class(es) Dates [...] every six hours as needed for pain Kewadin 325- 5 mg oral tablet Dose = 1 tab(s), Oral, q6h, PRN As needed for severe pain, X 3 day(s), # 12 tab(s), 0 Refill(s), Contusion of rib on right side, 144.4 Start Date: 05/05/23 Stop Date: 05/08/23 Status: Ordered Start: 07-15-2022 End: 07-17-2022 take 1 tablet by mouth every six hours as needed for pain Kewadin 325- 5 mg oral tablet Dose = [...] 0 Refill(s), Pharmacy: [facility]/pharmacy #[id number], Postoperative pain, 175, cm, 12/24/24 0:46:00 [...] qDay, # 90 tab(s), 3 Refill(s), Pharmacy: [facility], 177.8, cm, 11/28/23 13:54:00 EDT, [...] 100 tab(s), 3 Refill(s), [facility]: [facility] #[id number], 178.5, cm, 08/08/23 13:32:00 EDT, Height, kg, [...] device, # 1 EA, 0 Refill(s), Pharmacy: [facility], 177.8, cm, 11/28/23 13:54:00 EDT, Height, 151.4, kg, 11/28/23 13:54:00 EDT, Dosing Weight Start Date: 12/12/23 Status: Ordered cephalexin 500 mg oral tablet (2 sources) Cephalosporin Antibacterial Start: 11-28-2024 End: 12-12-2024 cephalexin 500 mg oral tablet Dose : 500 mg = 1 tab(s), Oral, QID, X 14 day(s), # 56 tab(s), 0 Refill(s), 12/12/24 1:19:00 PM EDT, Pharmacy: [facility]/pharmacy #[id number], 177.8, cm, 11/24/24 11:36:00 EDT, Height, [...] Daily, # 90 tab(s), 3 Refill(s), Pharmacy: [facility], 177.8, cm, 11/28/23 13:54:00 EDT, [...] 60 cap(s), 2 Refill(s), [facility]: [facility] #[id number], 176, cm, 06/07/23 13:36:00 EST, Height, kg, [...] # 4 EA, 3 Refill(s), Pharmacy: [facility], 177.8, cm, 11/28/23 13:54:00 EDT, Height, kg, 11/28/23 13:54:00 EDT, Dosing Weight Start Date: 12/12/23 Stop Date: 04/02/24 Status: Ordered Start: 08-21-2023 inject 0.5 mL by sub cutaneous injection every week Trulicity Pen 0.75 mg/0.5 mL subcutaneous solution Dose : 0.75 mg = 0.5 mL, Subcutaneous, qWeek, # 2.5 mL, 5 Refill(s), 0.5 mL/Pen, Pharmacy: [facility] #[id number], 177.8, cm, 08/09/23 21:07:00 EDT, Height, kg, [...] qDay, # 30 cap(s), 0 Refill(s), Pharmacy: [facility], 175, cm, 05/14/24 13:59:00 EST, Height, kg, 05/14/24 13:57:00 EST, Dosing Weight Start Date: 05/14/24 Status: Ordered Quantity: 30.0 Unit: cap(s) Repeat number: 1 Start: 06-09-2023 FLUoxetine 10 mg oral capsule Dose : 10 mg = 1 cap(s), Oral, qDay, # 30 cap(s), 2 Refill(s), [id number], 176, cm, 06/07/23 13:36:00 EST, Height, kg, 06/07/23 13:36:00 EST, Dosing Weight Start Date: 06/09/23 Status: Ordered Start: 01-31-2023 FLUoxetine 20 mg oral tablet Dose : 20 mg = 1 tab(s), Oral, qDay, # 90 tab(s), 3 Refill(s), [facility]acy: [facility] #[id number], 175.3, cm, 12/23/22 6:37:00 EDT, Height, kg, 12/23/22 6:38:00 EDT, Dosing Weight Start Date: 01/31/23 Status: Ordered Start: 12-13-2022 FLUoxetine 20 mg oral tablet Dose : 20 mg = 1 tab(s), Oral, qDay, # 30 tab(s), 3 Refill(s), [facility]acy: [facility] #[id number], 175.3, cm, 12/13/22 14:43:00 EDT, Height Start Date: 12/13/22 Status: Ordered Start: 11-08-2022 FLUoxetine 10 mg oral tablet Dose : 10 mg = 1 tab(s), Oral, qDay, # 30 tab(s), 2 Refill(s), [facility]acy: [facility] #[id number], 177, cm, 11/08/22 13:50:00 EDT, Height Start Date: 11/08/22 Status: Ordered 120 actuat fluticasone propionate 0.11 mg/actuat metered dose inhaler (3 sources) Corticosteroid Start: 08-08-2023 End: 08-02-2024 take 2 puff(s) by inhalation twice daily Flovent HFA 110 mcg/inh inhalation aerosol 2 puff(s), Inhalation, BID, # 3 EA, 3 Refill(s), [facility]acy: [facility] #[id number], 178.5, cm, 08/08/23 13:32:00 EDT, Height, kg, [...] PM, # 135 tab(s), 3 Refill(s), Pharmacy: [facility], 177.8, cm, 11/28/23 13:54:00 EDT, Height, kg, 11/28/23 13:54:00 EDT, Dosing Weight Start Date: 12/12/23 Status: Ordered Start: 08-08-2023 take 1 tablet by brandon th in the morning, then take 0.5 tablet by mouth in the evening Lasix 40 mg oral tablet See Instructions, 1 tab in AM and 0.5 tab in PM, # 135 tab(s), 3 Refill(s), [facility]acy: [facility] #[id number], 178.5, cm, 08/08/23 13:32:00 EDT, Height, kg, 08/08/23 13:32:00 EDT, Dosing Weight Start Date: 08/08/23 Status: Ordered Start: 11-14-2022 take 1 tablet by brandon th in the morning, then take 0.5 tablet by mouth in the evening Lasix 40 mg oral tablet See Instructions, 1 tab in AM and 0.5 tab in PM, # 135 tab(s), 0 Refill(s), Pharmacy: [facility] #[id number], 177, cm, 11/08/22 13:50:00 EDT, Height, kg, [...] 5 Refill(s), 06/09/24 4:10:00 PM EST, Pharmacy: [facility], 177.8, cm, 11/28/23 13:54:00 EDT, [...] 3 Refill(s), 05/31/23 2:41:00 PM EST, Pharmacy: [facility] #[id number], 175.3, cm, 12/23/22 6:37:00 EDT, Height, kg, 12/23/22 6:38:00 EDT, Dosing Weight Start Date: 01/31/23 Stop Date: 05/31/23 Status: Ordered losartan potassium 100 mg oral tablet (2 sources) Angiotensin 2 Receptor Kp Start: 12-23-2022 losartan 100 mg oral tablet Dose : 100 mg = 1 tab(s), Oral, qDay, # 30 tab(s), 6 Refill(s), [facility][id number], 175.3, cm, 12/23/22 6:37:00 EDT, Height, kg, 12/23/22 6:38:00 EDT, Dosing Weight Start Date: 12/23/22 Status: Ordered metFORMIN hydrochloride 500 mg oral tablet (11 sources) Biguanide Start: 01-31-2023 MetFORMIN (Eqv-Fortamet) 500 mg oral tablet, EXTENDED RELEASE Dose : 500 mg = 1 tab(s), Oral, qDay, # 90 tab(s), 3 Refill(s), Pharmacy: [facility] #[id number], 175.3, cm, 12/23/22 6:37:00 EDT, Height, kg, [...] 30 EA, 5 Refill(s), [facility]: [facility] #[id number], 177, cm, 11/08/22 13:50:00 EDT, Height Start Date: 11/08/22 Stop Date: 05/07/23 Status: Ordered nystatin [id number] unt/ml topical cream (1 source) Polyene Antifungal [...] meal., # 180 cap(s), 0 Refill(s), Pharmacy: [facility]/pharmacy #[id number], 175, cm, 09/05/24 16:01:00 EDT, Height, kg, 09/05/24 16:01:00 EDT, Dosing Weight Start Date: 09/19/24 Status: Ordered Quantity: 180.0 Unit: cap(s) Repeat number: 1 Start: 10-23-2022 End: 05-14-2023 omeprazole 40 mg oral delaye d release capsule Dose : 40 mg = 1 cap(s), Oral, BID, before a meal., # 180 cap(s), 3 Refill(s), Pharmacy: [facility], 177.8, cm, 11/28/23 13:54:00 EDT, [...] See Instructions, As directed by provider at [facility]., # 1 EA, 0 Refill(s), Pharmacy: [facility] #[id number], Colon cancer screening, 175.9, cm, 02/15/23 13:56:00 [...] food, # 90 tab(s), 3 Refill(s), Pharmacy: [facility]/pharmacy #[id number], 177.8, cm, 10/02/24 6:28:00 EDT, Height, kg, 10/02/24 6:28:00 EDT, Dosing Weight Start Date: 10/04/24 Status: Ordered Quantity: 90.0 Unit: tab(s) Repeat number: 4 Start: 02-09-2024 Potassium Chlo ride (Eqv-K-Tab) 10 mEq oral tablet, extended release Dose : 10 mEq = 1 tab(s), Oral, qDay, # 30 tab(s), 3 Refill(s), [facility]: [facility] [...] Daily, # 100 tab(s), 3 Refill(s), Pharmacy: [facility], 175, cm, 02/13/24 15:03:00 EDT, [...] Daily, # 100 tab(s), 3 Refill(s), Pharmacy: [facility], 177.8, cm, 11/28/23 13:54:00 EDT, [...] BID, # 180 tab(s), 3 Refill(s), Pharmacy: [facility], 177.8, cm, 11/28/23 13:54:00 EDT, Height, kg, 11/28/23 13:54:00 EDT, Dosing Weight Start Date: 12/12/23 Stop Date: 12/06/24 Status: Ordered Start: 03-22-2023 take 1 tablet by brandon twice daily sacubitril-valsartan 49 mg-51 mg oral tablet Dose = 1 tab(s), Oral, BID, # 60 tab(s), 3 Refill(s), Pharmacy: [facility] #[id number], 175.3, cm, 03/22/23 13:31:00 EDT, Height, kg, [...] qDay, # 60 tab(s), 5 Refill(s), Pharmacy: [facility] #[id number], 175.3, cm, 12/23/22 6:37:00 EDT, Height, kg, 12/23/22 6:38:00 EDT, Dosing Weight Start Date: 02/07/23 Status: Ordered Start: 11-24-2022 spironolactone 25 mg oral tablet Dose : 25 mg = 1 tab(s), Oral, qDay, # 60 tab(s), 0 Refill(s), Pharmacy: [facility] #[id number], 177, cm, 11/08/22 13:50:00 EDT, Height, kg, 11/08/22 13:50:00 EDT, Dosing Weight Start Date: 11/24/22 Status: Ordered Start: 11-04-2022 spironolactone 25 mg oral tablet Dose : 25 mg = 1 tab(s), Oral, BIDM, # 60 tab(s), 0 Refill(s), Pharmacy: [facility] #[id number], 175.3, cm, 11/04/22 8:52:00 EDT, Height Start Date: 11/04/22 Status: Ordered Symbicort 80 mcg-4.5 mcg/inh Inhaler (13 sources) Start: 07-29-2024 End: 07-24-2025 take 1 dose by inhalation twice daily Symbicort 80 mcg-4.5 mcg/inh Inhaler Dose = 2 puff(s), Inhalation, BID, # 30.6 gram(s), 3 Refill(s), Pharmacy: [facility], 182, cm, 06/12/24 13:53:00 EST, Height, kg, 06/12/24 13:53:00 EST, Dosing Weight Start Date: 07/29/24 Stop Date: 07/24/25 Status: Ordered Quantity: 30.6 Unit: g Repeat number: 4 Start: 04-08-2024 End: 08-06-2024 take 1 dose by inhalation twice daily Symbicort 80 mcg-4.5 mcg/inh Inhaler Dose = 2 puff(s), Inhalation, BID, # 10.2 gram(s), 3 Refill(s), Pharmacy: [facility], 175, cm, 04/01/24 13:03:00 EST, Height, kg, 04/01/24 13:03:00 EST, Dosing Weight Start Date: 04/08/24 Stop Date: 08/06/24 Status: Ordered Quantity: 10.2 Unit: g Repeat number: 4 Start: 12-12-2023 End: 04-10-2024 take 1 dose by inhalation twice daily Symbicort 80 mcg-4.5 mcg/inh Inhaler Dose = 2 puff(s), Inhalation, BID, # 10.2 gram(s), 3 Refill(s), Pharmacy: [facility], 177.8, cm, 11/28/23 13:54:00 EDT, [...] spasm, # 21 tab(s), 3 Refill(s), Pharmacy: [facility], 182, cm, 06/12/24 13:53:00 EST, Height, kg, 06/12/24 13:53:00 EST, Dosing Weight Start Date: 08/26/24 Stop Date: 09/23/24 Status: Ordered Quantity: 21.0 Unit: tab(s) Repeat number: 4 Start: 03-04-2024 tiZANidine 2 m g oral tablet Dose : 2 mg = 1 tab(s), Oral, q8h, PRN as needed for muscle spasm, # 90 tab(s), 2 Refill(s), Pharmacy: [facility], 175, cm, 02/13/24 15:03:00 EDT, Height, kg, 02/13/24 15:03:00 EDT, Dosing Weight Start Date: 03/04/24 Status: Ordered Quantity: 90.0 Unit: tab(s) Repeat number: 3 Start: 01-08-2024 tiZANidine 2 m g oral tablet Dose : 2 mg = 1 tab(s), Oral, q8h, PRN as needed for muscle spasm, # 90 tab(s), 2 Refill(s), Pharmacy: [facility], 177.8, cm, 11/28/23 13:54:00 EDT, [...] tab(s), 2 Refill(s), Pharmacy: [facility]/pharmacy #[id number], 175, cm, 09/05/24 16:01:00 EDT, Height, kg, 09/05/24 16:01:00 EDT, Dosing Weight Start Date: 09/19/24 Status: Ordered Quantity: 90.0 Unit: tab(s) Repeat number: 3 Start: 12-12-2023 traZODone 100 mg oral tablet Dose : 100 mg = 1 tab(s), Oral, qHS, # 90 tab(s), 3 Refill(s), Pharmacy: [facility], 177.8, cm, 11/28/23 13:54:00 EDT, Height, kg, 11/28/23 13:54:00 EDT, Dosing Weight Start Date: 12/12/23 Status: Ordered Quantity: 90.0 Unit: tab(s) Repeat number: 4 Start: 08-08-2023 traZODone 100 mg oral tablet Dose : 100 mg = 1 tab(s), Oral, qHS, # 90 tab(s), 3 Refill(s), [facility]acy: [facility] #[id number], 178.5, cm, 08/08/23 13:32:00 EDT, Height, kg, 08/08/23 13:32:00 EDT, Dosing Weight Start Date: 08/08/23 Status: Ordered Start: 12-13-2022 End: 04-12-2023 traZODone 100 mg oral tablet Dose : 100 mg = 1 tab(s), Oral, qHS, # 90 tab(s), 3 Refill(s), [facility] #[id number], 175.3, cm, 12/23/22 6:37:00 EDT, Height, kg, 12/23/22 6:38:00 EDT, Dosing Weight Start Date: 01/31/23 Status: Ordered Start: 11-08-2022 End: 02-06-2023 traZODone 50 mg oral tablet Dose : 50 mg = 1 tab(s), Oral, qHS, # 30 tab(s), 2 Refill(s), [facility]: [facility] #[id number], 177, cm, 11/08/22 13:50:00 EDT, Height, kg, [...] day(s), # 30 gram(s), 0 Refill(s), Pharmacy: [facility] #[id number], Cream, 175.3, cm, 12/13/22 14:43:00 EDT, Height, [...] 4 EA, 3 Refill(s), generic OZEMPIC, Pharmacy: [facility] #[id number], 178.5, cm, 08/08/23 13:32:00 EDT, Height, kg, [...] 60 tab(s), 3 Refill(s), [facility]: [facility] #[id number], Shortness of breath, 175.3, cm, 03/22/23 13:31:00 EDT, Height, kg, 03/22/23 13:31:00 EDT, Dosing Weight Start Date: 03/22/23 Stop Date: 03/29/23 Status: Ordered Start: 12-23-2022 Toprol-XL 50 m g oral tablet, extended release Dose : 50 mg = 1 tab(s), Oral, BID, # 60 tab(s), 6 Refill(s), [facility]: [facility] #[id number], 175.3, cm, 12/23/22 6:37:00 EDT, Height, kg, [...] tab(s), 11 Refill(s), Pharmacy: [facility]/pharmacy #[id number], 177.8, cm, 10/02/24 6:28:00 EDT, Height, 140.3, [...] Long-term current use of anticoagulant; 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] Episodic Other aftercare [...] Onset: 11-14-2024 Episodic Other aftercare (1 source) [facility] (current) use of anticoagulants; 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] Onset: 10-16-2024 Episodic [...] Basophil, Absolute 0.0 10 3/mcL Normal 0.0-0.3 [facility] Comment on above: Performed By: #### C BC, MG, GFR, ADIFF, BMP, ANEU #### [address] [address] Basophils/100 WBC (Bld) 0.9 % Normal 0.0-2.5 [facility] Comment on above: Performed By: #### C BC, MG, GFR, ADIFF, BMP, ANEU #### [address] [address] Eosinophil, Absolute 0.1 10 3/mcL Normal 0.0-0.7 [facility] Comment on above: Performed By: #### C BC, MG, GFR, ADIFF, BMP, ANEU #### [address] [address] Eosinophils/100 WBC (Bld) 3.2 % Normal 0.0-6.0 [facility] Comment on above: Performed By: #### C BC, MG, GFR, ADIFF, BMP, ANEU #### [address] [address] Lymphocyte, Absolute 1.0 10 3/mcL Normal 0.9-4.3 [facility] Comment on above: Performed By: #### C BC, MG, GFR, ADIFF, BMP, ANEU #### [address] [address] Lymphocytes/100 WBC (Bld) 22.4 % Normal 20.0-40.0 [facility] Comment on above: Performed By: #### C BC, MG, GFR, ADIFF, BMP, ANEU #### [address] [address] Monocyte, Absolute 0.6 10 3/mcL Normal 0.1-1.4 [facility] Comment on above: Performed By: #### C BC, MG, GFR, ADIFF, BMP, ANEU #### [address] [address] Monocytes/100 WBC (Bld) 13.1 % High 2.0-13.0 [facility] Comment on above: Performed By: #### C BC, MG, GFR, ADIFF, BMP, ANEU #### [address] [address] Neutrophils/100 WBC (Bld) 60.4 % Normal 50.0-75.0 [facility] Comment on above: Performed By: #### C BC, MG, GFR, ADIFF, BMP, ANEU #### [address] [address] .GFRon 12-26-2024 Estimated Glomerular Filtration Rate 105 ml/min/1.73sqm Normal [facility] Comment on above: Result Comment: [...] BC, MG, GFR, ADIFF, BMP, ANEU #### [address] [address] .NEUABSon 12-26-2024 Neutrophil, Absolute 2.6 10 3/mcL Normal 2.3-8.1 [facility] Comment on above: Performed By: #### C BC, MG, GFR, ADIFF, BMP, ANEU #### [address] [address] BMPon 12-26-2024 BUN/Creatinine Ratio 7.4 ratio Low 10.0-22.0 [facility] Comment on above: Performed By: #### C BC, MG, GFR, ADIFF, BMP, ANEU #### [address] [address] Calcium [Mass/Vol] 9.1 mg/dL Normal 8.7-10.4 [facility] Comment on above: Performed By: #### C BC, MG, GFR, ADIFF, BMP, ANEU #### [address] [address] Chloride [Moles/Vol] 104 mmol/L Normal 98-110 [facility] Comment on above: Performed By: #### C BC, MG, GFR, ADIFF, BMP, ANEU #### [address] [address] CO2 [Moles/Vol] 28 mmol/L Normal 22-32 [facility] Comment on above: Performed By: #### C BC, MG, GFR, ADIFF, BMP, ANEU #### [address] [address] Creatinine [Mass/Vol] 0.81 mg/dL Normal 0.60-1.40 [facility] Comment on above: Result Comment: Test ing performed on [employer] analyzer using enzymatic creatinine methodology. Performed By: #### C BC, MG, GFR, ADIFF, BMP, ANEU #### [place] [id number] Electrolyte Balance 8.0 mEq/L Normal 4.0-15.0 [facility] Comment on above: Performed By: #### C BC, MG, GFR, ADIFF, BMP, ANEU #### [address] [address] Glucose [Mass/Vol] 151 mg/dL High 70-110 [facility] Comment on above: Performed By: #### C BC, MG, GFR, ADIFF, BMP, ANEU #### [address] [address] Potassium [Moles/Vol] 4.1 mmol/L Normal 3.5-5.0 [facility] Comment on above: Performed By: #### C BC, MG, GFR, ADIFF, BMP, ANEU #### [address] [address] Sodium [Moles/Vol] 140 mmol/L Normal 136-145 [facility] Comment on above: Performed By: #### C BC, MG, GFR, ADIFF, BMP, ANEU #### [place] [address] Urea nitrogen [Mass/Vol] 6.0 mg/dL Low 8.0-22.0 [facility] Comment on above: Performed By: #### C BC, MG, GFR, ADIFF, BMP, ANEU #### [place] [address] CBCon 12-26-2024 Erythrocyte distribution width (RBC) [Ratio] 14.7 % Normal 11.5-15.5 [facility] Comment on above: Performed By: #### C BC, MG, GFR, ADIFF, BMP, ANEU #### [place] [address] Hematocrit (Bld) [Volume fraction] 40.7 % Normal 40.0-52.0 [facility] Comment on above: Performed By: #### C BC, MG, GFR, ADIFF, BMP, ANEU #### [place] [address] Hgb 13.2 G/dL Normal 13.0-17.5 [facility] Comment on above: Performed By: #### C BC, MG, GFR, ADIFF, BMP, ANEU #### [place] [address] MCH (RBC) [Entitic mass] 27.6 pg Normal 27.0-33.0 [facility] Comment on above: Performed By: #### C BC, MG, GFR, ADIFF, BMP, ANEU #### [place] [address] MCHC 32.3 G/dL Normal 32.0-36.0 [facility] Comment on above: Performed By: #### C BC, MG, GFR, ADIFF, BMP, ANEU #### [place] [address] MCV (RBC) [Entitic vol] 85.4 fL Normal 81.0-100.0 [facility] Comment on above: Performed By: #### C BC, MG, GFR, ADIFF, BMP, ANEU #### [place] [address] Platelet 148 10 3/mcL Low 150-450 [facility] Comment on above: Performed By: #### C BC, MG, GFR, ADIFF, BMP, ANEU #### [place] [address] Platelet mean volume (Bld) [Entitic vol] 8.2 fL Normal 6.4-10.5 [facility] Comment on above: Performed By: #### C BC, MG, GFR, ADIFF, BMP, ANEU #### [place] [address] RBC 4.77 10 6/mcL Normal 4.50-6.00 [facility] Comment on above: Performed By: #### C BC, MG, GFR, ADIFF, BMP, ANEU #### [place] [address] WBC 4.3 10 3/mcL Low 4.5-10.8 [facility] Comment on above: Performed By: #### C BC, MG, GFR, ADIFF, BMP, ANEU #### [place] [address] LABORATORYOrdered By: Armando domínguez on 12-26-2024 Glucose [Mass/Vol] 171 mg/dL High 70 - 110 mg/dL [facility] LABORATORYOrdered By: Jr Mac on 12-26-2024 Glucose [Mass/Vol] 167 mg/dL High 70 - 110 mg/dL [facility] Glucose [Mass/Vol] 121 mg/dL High 70 - 110 mg/dL [facility] LABORATORYOrdered By: SYSTEM SYSTEM on 12-26-2024 Basophils [...] above: Interpretive Data: T esting performed on [employer] analyzer using enzymatic creatinine methodology. Electrolyte Balance [...] 12-26-2024 Magnesium [Mass/Vol] 1.8 mg/dL Normal 1.6-2.4 [facility] Comment on above: Performed By: #### C BC, MG, GFR, ADIFF, BMP, ANEU #### [place] [address] .Auto Diffon 12-25-2024 Basophil, Absolute 0.0 10 3/mcL Normal 0.0-0.3 [facility] Comment on above: Performed By: #### C BC, MG, GFR, ADIFF, BMP, ANEU #### [address] [address] Basophils/100 WBC (Bld) 0.6 % Normal 0.0-2.5 [facility] Comment on above: Performed By: #### C BC, MG, GFR, ADIFF, BMP, ANEU #### [address] [address] Eosinophil, Absolute 0.1 10 3/mcL Normal 0.0-0.7 [facility] Comment on above: Performed By: #### C BC, MG, GFR, ADIFF, BMP, ANEU #### [address] [address] Eosinophils/100 WBC (Bld) 2.2 % Normal 0.0-6.0 [facility] Comment on above: Performed By: #### C BC, MG, GFR, ADIFF, BMP, ANEU #### [address] [address] Lymphocyte, Absolute 0.9 10 3/mcL Normal 0.9-4.3 [facility] Comment on above: Performed By: #### C BC, MG, GFR, ADIFF, BMP, ANEU #### [address] [address] Lymphocytes/100 WBC (Bld) 14.1 % Low 20.0-40.0 [facility] Comment on above: Performed By: #### C BC, MG, GFR, ADIFF, BMP, ANEU #### [address] [address] Monocyte, Absolute 0.5 10 3/mcL Normal 0.1-1.4 [facility] Comment on above: Performed By: #### C BC, MG, GFR, ADIFF, BMP, ANEU #### [address] [address] Monocytes/100 WBC (Bld) 8.9 % Normal 2.0-13.0 [facility] Comment on above: Performed By: #### C BC, MG, GFR, ADIFF, BMP, ANEU #### [address] [address] Neutrophils/100 WBC (Bld) 74.2 % Normal 50.0-75.0 [facility] Comment on above: Performed By: #### C BC, MG, GFR, ADIFF, BMP, ANEU #### [address] [address] .GFRon 12-25-2024 Estimated Glomerular Filtration Rate 105 ml/min/1.73sqm Normal [facility] Comment on above: Result Comment: [...] BC, MG, GFR, ADIFF, BMP, ANEU #### [address] [address] .NEUABSon 12-25-2024 Neutrophil, Absolute 4.5 10 3/mcL Normal 2.3-8.1 [facility] Comment on above: Performed By: #### C BC, MG, GFR, ADIFF, BMP, ANEU #### [address] [address] BMPon 12-25-2024 BUN/Creatinine Ratio 14.6 ratio Normal 10.0-22.0 [facility] Comment on above: Performed By: #### C BC, MG, GFR, ADIFF, BMP, ANEU #### [address] [address] Calcium [Mass/Vol] 9.2 mg/dL Normal 8.7-10.4 [facility] Comment on above: Performed By: #### C BC, MG, GFR, ADIFF, BMP, ANEU #### [address] [address] Chloride [Moles/Vol] 101 mmol/L Normal 98-110 [facility] Comment on above: Performed By: #### C BC, MG, GFR, ADIFF, BMP, ANEU #### [address] [address] CO2 [Moles/Vol] 31 mmol/L Normal 22-32 [facility] Comment on above: Performed By: #### C BC, MG, GFR, ADIFF, BMP, ANEU #### [address] [address] Creatinine [Mass/Vol] 0.82 mg/dL Normal 0.60-1.40 [facility] Comment on above: Result Comment: Test ing performed on [employer] analyzer using enzymatic creatinine methodology. Performed By: #### C BC, MG, GFR, ADIFF, BMP, ANEU #### [address] [address] Electrolyte Balance 6.0 mEq/L Normal 4.0-15.0 [facility] Comment on above: Performed By: #### C BC, MG, GFR, ADIFF, BMP, ANEU #### [address] [address] Glucose [Mass/Vol] 218 mg/dL High 70-110 [facility] Comment on above: Performed By: #### C BC, MG, GFR, ADIFF, BMP, ANEU #### [address] [address] Potassium [Moles/Vol] 4.9 mmol/L Normal 3.5-5.0 [facility] Comment on above: Performed By: #### C BC, MG, GFR, ADIFF, BMP, ANEU #### [address] [address] Sodium [Moles/Vol] 138 mmol/L Normal 136-145 [facility] Comment on above: Performed By: #### C BC, MG, GFR, ADIFF, BMP, ANEU #### [address] [address] Urea nitrogen [Mass/Vol] 12.0 mg/dL Normal 8.0-22.0 [facility] Comment on above: Performed By: #### C BC, MG, GFR, ADIFF, BMP, ANEU #### [place] [address] CBCon 12-25-2024 Erythrocyte distribution width (RBC) [Ratio] 15.2 % Normal 11.5-15.5 [facility] Comment on above: Performed By: #### C BC, MG, GFR, ADIFF, BMP, ANEU #### [place] [address] Hematocrit (Bld) [Volume fraction] 43.7 % Normal 40.0-52.0 [facility] Comment on above: Performed By: #### C BC, MG, GFR, ADIFF, BMP, ANEU #### [place] [address] Hgb 14.1 G/dL Normal 13.0-17.5 [facility] Comment on above: Performed By: #### C BC, MG, GFR, ADIFF, BMP, ANEU #### [place] [address] MCH (RBC) [Entitic mass] 27.3 pg Normal 27.0-33.0 [facility] Comment on above: Performed By: #### C BC, MG, GFR, ADIFF, BMP, ANEU #### [place] [address] MCHC 32.3 G/dL Normal 32.0-36.0 [facility] Comment on above: Performed By: #### C BC, MG, GFR, ADIFF, BMP, ANEU #### [place] [address] MCV (RBC) [Entitic vol] 84.6 fL Normal 81.0-100.0 [facility] Comment on above: Performed By: #### C BC, MG, GFR, ADIFF, BMP, ANEU #### [place] [address] Platelet 136 10 3/mcL Low 150-450 [facility] Comment on above: Performed By: #### C BC, MG, GFR, ADIFF, BMP, ANEU #### [place] [address] Platelet mean volume (Bld) [Entitic vol] 8.5 fL Normal 6.4-10.5 [facility] Comment on above: Performed By: #### C BC, MG, GFR, ADIFF, BMP, ANEU #### [place] [address] RBC 5.16 10 6/mcL Normal 4.50-6.00 [facility] Comment on above: Performed By: #### C BC, MG, GFR, ADIFF, BMP, ANEU #### [place] [address] WBC 6.1 10 3/mcL Normal 4.5-10.8 [facility] Comment on above: Performed By: #### C BC, MG, GFR, ADIFF, BMP, ANEU #### [place] [address] LABORATORYOrdered By: Slime jaramillo on 12-25-2024 Blood Glucose Testing Reason Routine (12/25/24 4:14 PM) [facility] LABORATORYOrdered By: SYSTEM SYSTEM on 12-25-2024 Calcium [Mass/Vol] 9.2 mg/dL Normal 8.7 - 10. 4 mg/dL ADM SS Chloride [Moles/Vol] 101 mmol/L Normal 98 - 11 0 mEq/L ADM SS CO2 [Moles/Vol] 31 mmol/L Normal 22 - 32 mEq/L ADM SS Creatinine [Mass/Vol] 0.82 mg/dL Normal 0.60 - 1.40 mg/dL ADM SS Comment on above: Interpretive Data: T esting performed on [employer] analyzer using enzymatic creatinine methodology. Electrolyte Balance [...] Glucose Testing Reason Routine (12/25/24 11:33 AM) [facility] LABORATORYOrdered By: Patricia Max on 12-25-2024 Blood Glucose Testing Reason Routine (12/25/24 7:30 AM) [facility] MGon 12-25-2024 Magnesium [Mass/Vol] 1.7 mg/dL Normal 1.6-2.4 [facility] Comment on above: Order Comment: QNS 14:03:01 EDT Performed By: #### C BC, MG, GFR, ADIFF, BMP, ANEU #### [address] [address] No Panel Informationon 12-25 Microscopic examination of blood, culture Culture has been received in lab and is no growth to date. Routine cultures are held for 5 days. [facility] 12-25-2024 LDose Vancomycin:(trough) See eMAR Normal [facility] Comment on above: Performed By: #### A DIFF, ANEU, BMP, CBC, GFR #### [address] [address] Vancomycin Tr 17.0 mcg/mL Normal 10.0-20.0 [facility] Comment on above: Performed By: #### A DIFF, ANEU, BMP, CBC, GFR #### [address] [address] XR FLUORO 1-2 HRS TECH TIMEo n [...] 3:52:11 AM Ordering Provider: ANA LUISA Kate [facility] .Auto Diffon 12-24-2024 Basophil, Absolute 0.1 10 3/mcL Normal 0.0-0.3 [facility] Comment on above: Performed By: #### C BC, MG, GFR, ADIFF, BMP, ANEU #### [address] [address] Basophils/100 WBC (Bld) 1.0 % Normal 0.0-2.5 [facility] Comment on above: Performed By: #### C BC, MG, GFR, ADIFF, BMP, ANEU #### [address] [address] Eosinophil, Absolute 0.1 10 3/mcL Normal 0.0-0.7 [facility] Comment on above: Performed By: #### C BC, MG, GFR, ADIFF, BMP, ANEU #### [address] [address] Eosinophils/100 WBC (Bld) 1.8 % Normal 0.0-6.0 [facility] Comment on above: Performed By: #### C BC, MG, GFR, ADIFF, BMP, ANEU #### [address] [address] Lymphocyte, Absolute 0.9 10 3/mcL Normal 0.9-4.3 [facility] Comment on above: Performed By: #### C BC, MG, GFR, ADIFF, BMP, ANEU #### [address] [address] Lymphocytes/100 WBC (Bld) 11.7 % Low 20.0-40.0 [facility] Comment on above: Performed By: #### C BC, MG, GFR, ADIFF, BMP, ANEU #### [address] [address] Monocyte, Absolute 1.0 10 3/mcL Normal 0.1-1.4 [facility] Comment on above: Performed By: #### C BC, MG, GFR, ADIFF, BMP, ANEU #### [address] [address] Monocytes/100 WBC (Bld) 12.9 % Normal 2.0-13.0 [facility] Comment on above: Performed By: #### C BC, MG, GFR, ADIFF, BMP, ANEU #### [address] [address] Neutrophils/100 WBC (Bld) 72.6 % Normal 50.0-75.0 [facility] Comment on above: Performed By: #### C BC, MG, GFR, ADIFF, BMP, ANEU #### [address] [address] .GFRon 12-24-2024 Estimated Glomerular Filtration Rate 92 ml/min/1.73sqm [facility] Comment on above: Result [...] BC, MG, GFR, ADIFF, BMP, ANEU #### [address] [address] Estimated Glomerular Filtration Rate 92 ml/min/1.73sqm [facility] Comment on above: Result [...] A DIFF, ANEU, BMP, CBC, GFR #### [place] [address] .NEUABSon 12-24-2024 Neutrophil, Absolute 5.4 10 3/mcL Normal 2.3-8.1 [facility] Comment on above: Performed By: #### C BC, MG, GFR, ADIFF, BMP, ANEU #### [place] [id number] BMPon 12-24-2024 BUN/Creatinine Ratio 11.2 ratio Normal 10.0-22.0 [facility] Comment on above: Performed By: #### C BC, MG, GFR, ADIFF, BMP, ANEU #### [place] [address] Calcium [Mass/Vol] 9.2 mg/dL Normal 8.7-10.4 [facility] Comment on above: Performed By: #### C BC, MG, GFR, ADIFF, BMP, ANEU #### [place] [address] Chloride [Moles/Vol] 97 mmol/L Low 98-110 [facility] Comment on above: Performed By: #### C BC, MG, GFR, ADIFF, BMP, ANEU #### [place] [address] CO2 [Moles/Vol] 32 mmol/L Normal 22-32 [facility] Comment on above: Performed By: #### C BC, MG, GFR, ADIFF, BMP, ANEU #### [place] [address] Creatinine [Mass/Vol] 0.98 mg/dL Normal 0.60-1.40 [facility] Comment on above: Result Comment: Test ing performed on [employer] analyzer using enzymatic creatinine methodology. Performed By: #### C BC, MG, GFR, ADIFF, BMP, ANEU #### [place] [address] Electrolyte Balance 8.0 mEq/L Normal 4.0-15.0 [facility] Comment on above: Performed By: #### C BC, MG, GFR, ADIFF, BMP, ANEU #### [address] [address] Glucose [Mass/Vol] 118 mg/dL High 70-110 [facility] Comment on above: Performed By: #### C BC, MG, GFR, ADIFF, BMP, ANEU #### [address] [address] Potassium [Moles/Vol] 3.7 mmol/L Normal 3.5-5.0 [facility] Comment on above: Performed By: #### C BC, MG, GFR, ADIFF, BMP, ANEU #### [address] [address] Sodium [Moles/Vol] 137 mmol/L Normal 136-145 [facility] Comment on above: Performed By: #### C BC, MG, GFR, ADIFF, BMP, ANEU #### [address] [address] Urea nitrogen [Mass/Vol] 11.0 mg/dL Normal 8.0-22.0 [facility] Comment on above: Performed By: #### C BC, MG, GFR, ADIFF, BMP, ANEU #### [address] [address] BUN/Creatinine Ratio 11.2 ratio Normal 10.0-22.0 [facility] Comment on above: Performed By: #### A DIFF, ANEU, BMP, CBC, GFR #### [address] [address] Calcium [Mass/Vol] 9.3 mg/dL Normal 8.7-10.4 [facility] Comment on above: Performed By: #### A DIFF, ANEU, BMP, CBC, GFR #### [address] [address] Chloride [Moles/Vol] 99 mmol/L Normal 98-110 [facility] Comment on above: Performed By: #### A DIFF, ANEU, BMP, CBC, GFR #### [address] [address] CO2 [Moles/Vol] 31 mmol/L Normal 22-32 [facility] Comment on above: Performed By: #### A DIFF, ANEU, BMP, CBC, GFR #### [address] [address] Creatinine [Mass/Vol] 0.98 mg/dL Normal 0.60-1.40 [facility] Comment on above: Result Comment: Test ing performed on [employer] analyzer using enzymatic creatinine methodology. Performed By: #### A DIFF, ANEU, BMP, CBC, GFR #### [address] [address] Electrolyte Balance 3.0 mEq/L Low 4.0-15.0 [facility] Comment on above: Performed By: #### A DIFF, ANEU, BMP, CBC, GFR #### [address] [address] Glucose [Mass/Vol] 100 mg/dL Normal 70-110 [facility] Comment on above: Performed By: #### A DIFF, ANEU, BMP, CBC, GFR #### [address] [address] Potassium [Moles/Vol] 4.8 mmol/L Normal 3.5-5.0 [facility] Comment on above: Performed By: #### A DIFF, ANEU, BMP, CBC, GFR #### [place] [id number] Sodium [Moles/Vol] 133 mmol/L Low 136-145 [facility] Comment on above: Performed By: #### A DIFF, ANEU, BMP, CBC, GFR #### [address] [address] Urea nitrogen [Mass/Vol] 11.0 mg/dL Normal 8.0-22.0 [facility] Comment on above: Performed By: #### A DIFF, ANEU, BMP, CBC, GFR #### [address] [address] CBCon 12-24-2024 Erythrocyte distribution width (RBC) [Ratio] 15.0 % Normal 11.5-15.5 [facility] Comment on above: Performed By: #### C BC, MG, GFR, ADIFF, BMP, ANEU #### [place] [address] Hematocrit (Bld) [Volume fraction] 44.1 % Normal 40.0-52.0 [facility] Comment on above: Performed By: #### C BC, MG, GFR, ADIFF, BMP, ANEU #### [place] [address] Hgb 14.3 G/dL Normal 13.0-17.5 [facility] Comment on above: Performed By: #### C BC, MG, GFR, ADIFF, BMP, ANEU #### [place] [address] MCH (RBC) [Entitic mass] 27.3 pg Normal 27.0-33.0 [facility] Comment on above: Performed By: #### C BC, MG, GFR, ADIFF, BMP, ANEU #### [place] [address] MCHC 32.3 G/dL Normal 32.0-36.0 [facility] Comment on above: Performed By: #### C BC, MG, GFR, ADIFF, BMP, ANEU #### [place] [address] MCV (RBC) [Entitic vol] 84.4 fL Normal 81.0-100.0 [facility] Comment on above: Performed By: #### C BC, MG, GFR, ADIFF, BMP, ANEU #### [place] [address] Platelet 140 10 3/mcL Low 150-450 [facility] Comment on above: Result Comment: Plat elet results confirmed. Specimen was checked for clot Performed By: #### C BC, MG, GFR, ADIFF, BMP, ANEU #### [place] [address] Platelet mean volume (Bld) [Entitic vol] 8.8 fL Normal 6.4-10.5 [facility] Comment on above: Performed By: #### C BC, MG, GFR, ADIFF, BMP, ANEU #### [place] [address] RBC 5.23 10 6/mcL Normal 4.50-6.00 [facility] Comment on above: Performed By: #### C BC, MG, GFR, ADIFF, BMP, ANEU #### [facility] [address] [place] [address] WBC 7.5 10 3/mcL Normal 4.5-10.8 [facility] Comment on above: Performed By: #### C BC, MG, GFR, ADIFF, BMP, ANEU #### [facility] [address] [place] [address] Comprehensive Metabolic Prof nhon 12-24-2024 ALB Normal 3.5-5.0 [facility] Comment on above: Order Comment: 314.2 Result Comment: [facility] Performed By: #### L 500.4100, L501.9985 #### [facility] [address] [place], [address] ALK PHOS Normal 40-129 [facility] Comment on above: Order Comment: 314.2 Result Comment: [facility] Performed By: #### L 500.4100, [id number] #### [facility] [address] [place], [address] ALT Normal <=46 [facility] Comment on above: Order Comment: 314.2 Result Comment: [facility] Performed By: #### L 500.4100, [id number] #### [facility] [address] [place], [address] AST Normal <=37 [facility] Comment on above: Order Comment: 314.2 Result Comment: [facility] Performed By: #### L 500.4100, [id number] #### [facility] [address] [place], [address] BUN Normal 4-19 [facility] Comment on above: Order Comment: 314.2 Result Comment: [facility] Performed By: #### L 500.4100, L501.85 #### [facility] [address] [place], [address] BUN/CRE Normal 10-20 [facility] Comment on above: Order Comment: 314.2 Result Comment: [facility] Performed By: #### L 500.4100, [id number] #### [facility] [address] [place], [address] Calcium Normal 7.6-11.0 [facility] Comment on above: Order Comment: 314.2 Result Comment: [facility] Performed By: #### L 500.4100, [id number] #### [facility] [address] [place], [address] CL Normal 98-108 [facility] Comment on above: Order Comment: 314.2 Result Comment: [facility] Performed By: #### L 500.4100, L501.85 #### [facility] [address] [place], [address] CO2 Normal 21.0-32.0 [facility] Comment on above: Order Comment: 314.2 Result Comment: [facility] Performed By: #### L 500.4100, [id number] #### [facility] [address] [place], [address] CREAT,SERUM Normal 0.70-1.20 [facility] Comment on above: Order Comment: 314.2 Result Comment: [facility] Performed By: #### L 500.4100, [id number] #### [facility] [address] [place], [address] eGFR Normal >60 [facility] Comment on above: Order Comment: 314.2 Result Comment: [facility] Performed By: #### L 500.4100, [id number] #### [facility] [address] [place], [address] GAP Normal 5-15 [facility] Comment on above: Order Comment: 314.2 Result Comment: [facility] Performed By: #### L 500.4100, [id number] #### [facility] [address] [place], [address] GLU Normal 70-99 [facility] Comment on above: Order Comment: 314.2 Result Comment: [facility] Performed By: #### L 500.4100, [id number] #### [facility] [address] [place], [address] Potassium Normal 3.3-5.1 [facility] Comment on above: Order Comment: 314.2 Result Comment: [facility] Performed By: #### L 500.4100, [id number] #### [facility] [address] [place], [address] T BILI Normal 0.00-1.30 [facility] Comment on above: Order Comment: 314.2 Result Comment: [facility] Performed By: #### L 500.4100, [id number] #### [facility] [address] [place], [address] T PROT Normal 5.9-8.4 [facility] Comment on above: Order Comment: 314.2 Result Comment: [facility] Performed By: #### L 500.4100, [id number] #### [facility] [address] [place], [address] Comprehensive Metabolic Profil Normal 133-145 [facility] Comment on above: Order Comment: 314.2 Result Comment: [facility] Performed By: #### L 500.4100, [id number] #### [facility] [address] [place], [address] LABORATORYOrdered By: SYSTEM SYSTEM on 12-24-2024 Basophils [...] above: Interpretive Data: T esting performed on [employer] CH analyzer using enzymatic creatinine methodology. Electrolyte [...] 1.6 - 2 .4 mg/dL [facility] SS MCH (RBC) [Entitic mass] 27.3 pg [...] Normal 6.4 - 10.5 fL [facility] SS Platelets (Bld) [#/Vol] 140 103/mcL [...] Comment on above: Interpretive Data: Baljinder linn [employer] (CHEST, 1992, 102:312S-25S) [...] 12-24-2024 Magnesium [Mass/Vol] 1.9 mg/dL Normal 1.6-2.4 [facility] Comment on above: Performed By: #### C BC, MG, GFR, ADIFF, BMP, ANEU #### [place] [address] No Panel Informationon 12-24 Microscopic examination of blood, culture Culture has been received in lab and is no growth to date. Routine cultures are held for 5 days. [facility] PROon 12-24-2024 INR Coag (PPP) [Relative time] 1.2 {INR} Normal [facility] Comment on above: Result Comment: [employer] (CHEST, 1992, 102:312S-25S) recommended therapeutic range for oral anticoagulant therapy is: LOW RISK: Prophylaxis of venous thrombosis INR: 2.0-3.0 Treatment of pulmonary embolism 2.0-3.0 Prevention of systemic embolism 2.0-3.0 HIGH RISK: Mechanical prosthetic valves 2.5-3.5 Performed By: #### C BC, MG, GFR, ADIFF, BMP, ANEU #### [address] [address] PT Coag (PPP) [Time] 13.8 s Normal 9.0-14.4 [facility] Comment on above: Result Comment: Effe ctive 12/11/07, Protime results may be affected by some antibiotics (i.e. Ciprofloxacin, Azithromycin, Bactrim) which may potentiate the action of oral anticoagulants, with further increases in Protime/INR. Performed By: #### C BC, MG, GFR, ADIFF, BMP, ANEU #### [address] [address] .Auto Diffon 12-23-2024 Basophil, Absolute 0.1 10 3/mcL Normal 0.0-0.3 [facility] Comment on above: Performed By: #### A DIFF, ANEU, BMP, CBC, GFR #### [address] [address] Basophils/100 WBC (Bld) 0.8 % Normal 0.0-2.5 [facility] Comment on above: Performed By: #### A DIFF, ANEU, BMP, CBC, GFR #### [address] [address] Eosinophil, Absolute 0.2 10 3/mcL Normal 0.0-0.7 [facility] Comment on above: Performed By: #### A DIFF, ANEU, BMP, CBC, GFR #### [address] [address] Eosinophils/100 WBC (Bld) 1.9 % Normal 0.0-6.0 [facility] Comment on above: Performed By: #### A DIFF, ANEU, BMP, CBC, GFR #### [address] [address] Lymphocyte, Absolute 1.2 10 3/mcL Normal 0.9-4.3 [facility] Comment on above: Performed By: #### A DIFF, ANEU, BMP, CBC, GFR #### [address] [address] Lymphocytes/100 WBC (Bld) 13.9 % Low 20.0-40.0 [facility] Comment on above: Performed By: #### A DIFF, ANEU, BMP, CBC, GFR #### [address] [address] Monocyte, Absolute 1.1 10 3/mcL Normal 0.1-1.4 [facility] Comment on above: Performed By: #### A DIFF, ANEU, BMP, CBC, GFR #### [address] [address] Monocytes/100 WBC (Bld) 12.5 % Normal 2.0-13.0 [facility] Comment on above: Performed By: #### A DIFF, ANEU, BMP, CBC, GFR #### [address] [address] Neutrophils/100 WBC (Bld) 70.9 % Normal 50.0-75.0 [facility] Comment on above: Performed By: #### A DIFF, ANEU, BMP, CBC, GFR #### [address] [address] .MDWon 12-23-2024 Monocyte Distribution Width 21.10 High 0.00-20.00 [facility] Comment on above: Result Comment: For adults in ED, MDW>20.0 may be associated with a higher risk of sepsis during the first 12hrs of hospital admission Performed By: #### A DIFF, ANEU, BMP, CBC, GFR #### [address] [address] .NEUABSon 12-23-2024 Neutrophil, Absolute 6.0 10 3/mcL Normal 2.3-8.1 [facility] Comment on above: Performed By: #### A DIFF, ANEU, BMP, CBC, GFR #### [address] [address] ABO/Rh (Gel)on 12-23-2024 ABO/Rh Interp Positive Invalid Interpretation Code [facility] Comment on above: Performed By: #### A DIFF, ANEU, BMP, CBC, GFR #### [address] [address] ABS (Gel)on 12-23-2024 ABSC Interp (Gel) Negative Normal [facility] Comment on above: Performed By: #### A DIFF, ANEU, BMP, CBC, GFR #### [place] [address] CBCon 12-23-2024 Erythrocyte distribution width (RBC) [Ratio] 15.1 % Normal 11.5-15.5 [facility] Comment on above: Performed By: #### A DIFF, ANEU, BMP, CBC, GFR #### [place] [address] Hematocrit (Bld) [Volume fraction] 47.5 % Normal 40.0-52.0 [facility] Comment on above: Performed By: #### A DIFF, ANEU, BMP, CBC, GFR #### [place] [address] Hgb 15.5 G/dL Normal 13.0-17.5 [facility] Comment on above: Performed By: #### A DIFF, ANEU, BMP, CBC, GFR #### [place] [address] MCH (RBC) [Entitic mass] 27.7 pg Normal 27.0-33.0 [facility] Comment on above: Performed By: #### A DIFF, ANEU, BMP, CBC, GFR #### [place] [address] MCHC 32.5 G/dL Normal 32.0-36.0 [facility] Comment on above: Performed By: #### A DIFF, ANEU, BMP, CBC, GFR #### [place] [address] MCV (RBC) [Entitic vol] 85.0 fL Normal 81.0-100.0 [facility] Comment on above: Performed By: #### A DIFF, ANEU, BMP, CBC, GFR #### [place] [id number] Platelet 223 10 3/mcL Normal 150-450 [facility] Comment on above: Performed By: #### A DIFF, ANEU, BMP, CBC, GFR #### [place] [address] Platelet mean volume (Bld) [Entitic vol] 8.0 fL Normal 6.4-10.5 [facility] Comment on above: Performed By: #### A DIFF, ANEU, BMP, CBC, GFR #### [facility] [address] [place] [id number] RBC 5.59 10 6/mcL Normal 4.50-6.00 [facility] Comment on above: Performed By: #### A DIFF, ANEU, BMP, CBC, GFR #### [facility] [address] [place] [id number] WBC 8.5 10 3/mcL Normal 4.5-10.8 [facility] Comment on above: Performed By: #### A DIFF, ANEU, BMP, CBC, GFR #### [address] [address] LABORATORYOrdered By: Suze Amaya on 12-23-2024 ABO [...] Lactic Acid Lvl 1.0 mmol/L Normal 0.5-2.2 [facility] Comment on above: Performed By: #### A DIFF, ANEU, BMP, CBC, GFR #### [address] [address] No Panel Informationon 12-23 Microscopic examination of blood, culture Culture has been received in lab and is no growth to date. Routine cultures are held for 5 days. [facility] Microscopic examination of blood, culture Culture has been received in lab and is no growth to date. Routine cultures are held for 5 days. [facility] XR ANKLE MINIMUM [...] 12/23/2024 9:57:26 PM Ordering Provider: FARZAD Kate [facility] XR ANKLE MINIMUM 3 VIEWS RIG [...] 12/23/2024 10:04:30 PM Ordering Provider: FARZAD GIL [facility] Absolute lymphocyte countOrd ered By: Yaz Dee on 12-21-2024 Lymphocytes Auto (Unsp spec) [#/Vol] 1.12 10*3/uL 0.83-4.51 [facility] Absolute neutrophil countOrd ered By: Yaz Dee on 12-21-2024 Neutrophils (Bld) [#/Vol] 5.1 10*3/uL 2.0-7.7 [facility] Anion gap in Serum or Plasma Ordered By: Yaz Dee on 12-21-2024 Anion gap [Moles/Vol] 10 mmol/L 5-15 [facility] Automated lymphocyte count a s percentage of total leukocytesOrdered By: Yaz Dee on 12-21-2024 Lymphocytes/100 WBC Auto (Unsp spec) 15.1 % Low 19-41 [facility] BUN/creatinine ratioOrdered By: Yaz Dee on 12-21-2024 Urea nitrogen/Creatinine [Mass ratio] 13.8 mg/mg 10- [facility] Basic Metabolic Profile (BMP )on 12-21-2024 BUN/CRE 13.8 RATIO Normal 10- [facility] Comment on above: Performed By: #### L 500.2500, L100.0100 #### [facility] [address] [place], [address] Calcium [Mass/Vol] 9.2 mg/dL Normal 7.6-11.0 [facility] Comment on above: Performed By: #### L 500.2500, L100.0100 #### [facility] [address] [place], [address] Chloride [Moles/Vol] 101 mmol/L Normal 98-108 [facility] Comment on above: Performed By: #### L 500.2500, L100.0100 #### [facility] [address] [place], [address] CO2 [Moles/Vol] 29.1 mmol/L Normal 21.0-32.0 [facility] Comment on above: Performed By: #### L 500.2500, L100.0100 #### [facility] [address] [place], [address] Creatinine [Mass/Vol] 0.86 mg/dL Normal 0.70-1.20 [facility] Comment on above: Performed By: #### L 500.2500, L100.0100 #### [facility] [address] [place], [address] ECRCL 138.62 ml/min Normal 50-250 [facility] Comment on above: Performed By: #### L 500.2500, L100.0100 #### [facility] [address] [place], [address] GAP 10 Normal 5-15 [facility] Comment on above: Performed By: #### L 500.2500, L100.0100 #### [facility] [address] [place], [address] GFR/1.73 sq M.predicted among non-blacks MDRD (S/P/Bld) [Vol rate/Area] 103 mL/min/{1.73_m2} Normal >60 [facility] Comment on above: Result Comment: mL/m in/1.73m2 CKD-EPI Creatinine Equation (2020) Performed By: #### L 500.2500, L100.0100 #### [facility] [address] [place], [address] Glucose [Mass/Vol] 126 mg/dL High 70-99 [facility] Comment on above: Performed By: #### L 500.2500, L100.0100 #### [facility] [address] [place], [address] Potassium [Moles/Vol] 4.5 mmol/L Normal 3.3-5.1 [facility] Comment on above: Result Comment: Hemo lysis present, Results??could be affected. ?? Performed By: #### L 500.2500, L100.0100 #### [facility] [address] [place], [address] Sodium [Moles/Vol] 140 mmol/L Normal 133-145 [facility] Comment on above: Performed By: #### L 500.2500, L100.0100 #### [facility] [address] [place], [address] Urea nitrogen [Mass/Vol] 12 mg/dL Normal 4-19 [facility] Comment on above: Performed By: #### L 500.2500, L100.0100 #### [facility] [address] [place], [address] Basophil percentageOrdered B y: Yazsangeeta Dee on 12-21-2024 Basophils/100 WBC (Bld) 0.5 % 0-1 [facility] Bedside Glucoseon 12-21-2024 FINGERSTICK GLU 171 mg/dL High 74-106 [facility] Comment on above: Result Comment: STEPHANIE GEMENT OF PATIENT CARE PER NURSING PROTOCOL Performed By: #### L 100.0500, L500.4050 #### [facility] [address] [place], [address] FINGERSTICK GLU 99 mg/dL Normal 74-106 [facility] Comment on above: Result Comment: STEPHANIE GEMENT OF PATIENT CARE PER NURSING PROTOCOL Performed By: #### L 500.4100, L501.9985 #### [facility] [address] [place], [address] CBC W/Diff, Automatedon 07-2 Absolute Lymph 1.12 X10 3/uL Normal 0.83-4.51 [facility] Comment on above: Performed By: #### L 500.2500, L100.0100 #### [facility] [address] [place], [address] Absolute Neut 5.1 X10 3/uL Normal 2.0-7.7 [facility] Comment on above: Performed By: #### L 500.2500, L100.0100 #### [facility] [address] [place], [address] Basophils/100 WBC (Bld) 0.5 % Normal 0-1 [facility] Comment on above: Performed By: #### L 500.2500, L100.0100 #### [facility] [address] [place], [address] Eosinophils/100 WBC (Bld) 1.9 % Normal 0-5 [facility] Comment on above: Performed By: #### L 500.2500, L100.0100 #### [facility] [address] [place], [address] Erythrocyte distribution width (RBC) [Ratio] 13.8 % Normal 11.6-14.6 [facility] Comment on above: Performed By: #### L 500.2500, L100.0100 #### [facility] [address] [place], [address] Hematocrit (Bld) [Volume fraction] 45.3 % Normal 40-54 [facility] Comment on above: Performed By: #### L 500.2500, L100.0100 #### [facility] [address] [place], [address] Hemoglobin (Bld) [Mass/Vol] 14.2 g/dL Normal 13.0-16.5 [facility] Comment on above: Performed By: #### L 500.2500, L100.0100 #### [facility] [address] [place], [address] IG% 0.300 Normal 0.0-0.9 [facility] Comment on above: Result Comment: IG% - Immature Granulocytes (promyelocytes, myelocytes and metamyelocytes) > 1% indicates that a LEFT SHIFT is Present. Performed By: #### L 500.2500, L100.0100 #### [facility] [address] [place], [address] Lymphocytes/100 WBC (Bld) 15.1 % Low 19-41 [facility] Comment on above: Performed By: #### L 500.2500, L100.0100 #### [facility] [address] [place], [address] MCH (RBC) [Entitic mass] 27.2 pg Normal 27.0-32.0 [facility] Comment on above: Performed By: #### L 500.2500, L100.0100 #### [facility] [address] [place], [address] MCHC (RBC) [Mass/Vol] 31.3 g/dL Low 32-36 [facility] Comment on above: Performed By: #### L 500.2500, L100.0100 #### [facility] [address] [place], [address] MCV (RBC) [Entitic vol] 86.6 fL Normal 80-94 [facility] Comment on above: Performed By: #### L 500.2500, L100.0100 #### [facility] [address] [place], [address] Monocytes/100 WBC (Bld) 13.4 % High 0-10 [facility] Comment on above: Performed By: #### L 500.2500, L100.0100 #### [facility] [address] [place], [address] Neutrophils/100 WBC (Bld) 68.8 % Normal 47-70 [facility] Comment on above: Performed By: #### L 500.2500, L100.0100 #### [facility] [address] [place], [address] Nucleated RBC (Bld) [#/Vol] 0 10*3/uL Normal 0-5 [facility] Comment on above: Performed By: #### L 500.2500, L100.0100 #### [facility] [address] [place], [address] Platelet mean volume (Bld) [Entitic vol] 9.8 fL Normal 6.2-12.0 [facility] Comment on above: Performed By: #### L 500.2500, L100.0100 #### [facility] [address] [place], [address] Platelets (Bld) [#/Vol] 191 10*3/uL Normal 150-450 [facility] Comment on above: Performed By: #### L 500.2500, L100.0100 #### [facility] [address] [place], [address] RBC (Bld) [#/Vol] 5.23 10*6/uL Normal 4.6-6.2 [facility] Comment on above: Performed By: #### L 500.2500, L100.0100 #### [facility] [address] [place], [address] RDW SD 43.9 fl Normal 35.1-43.9 [facility] Comment on above: Performed By: #### L 500.2500, L100.0100 #### [facility] [address] [place], [address] WBC (Bld) [#/Vol] 7.4 10*3/uL Normal 4.4-11.0 [facility] Comment on above: Performed By: #### L 500.2500, L100.0100 #### [facility] [address] [place], [address] Carbon dioxide, total [Moles /volume] in Central venous bloodOrdered By: Yaz Dee on 12-21-2024 CO2 [Moles/Vol] 29.1 mmol/L 21.0-32.0 [facility] Chloride assayOrdered By: Aram Dee on 12-21-2024 Chloride [Moles/Vol] 101 mmol/L 98-108 [facility] Eosinophil percentageOrdered By: Yaz Dee on 12-21-2024 Eosinophils/100 WBC (Bld) 1.9 % 0-5 [facility] Erythrocyte distribution wid th ratioOrdered By: Yaz Dee on 12-21-2024 Erythrocyte distribution width (RBC) [Ratio] 13.8 % 11.6-14.6 [facility] Erythrocyte distribution wid th standard deviationOrdered By: Yaz Dee on 12-21-2024 Erythrocyte distribution width (RBC) [Ratio] 43.9 fl 35.1-43.9 [facility] Glomerular filtration rate ( GFR) estimation/1.73 sq m using serum, plasma, or whole bOrdered By: Yaz Dee on 12-21-2024 GFR/1.73 sq M.predicted among non-blacks MDRD (S/P/Bld) [Vol rate/Area] 103 mL/min/{1.73_m2} >60 [facility] Comment on above: mL/min/1.73m2 CKD-EP I Creatinine Equation (2020) [facility] By: Farzad Camilo on 12-21-2024 Glucose [Mass/Vol] 171 mg/dL High 74-106 [facility] Comment on above: MANAGEMENT OF PATIEN T CARE PER NURSING PROTOCOL Hematocrit Auto (Bld) [Volum e fraction]Ordered By: Yaz Dee on 12-21-2024 Hematocrit (Bld) [Volume fraction] 45.3 % 40-54 [facility] Hemoglobin measurementOrdere d By: Yaz Dee on 12-21-2024 Hemoglobin (Bld) [Mass/Vol] 14.2 g/dL 13.0-16.5 [facility] Immature granulocytes/100 WB C Auto (Bld)Ordered By: Yaz Dee on 12-21-2024 Immature granulocytes/100 WBC (Bld) 0.300 % 0.0-0.9 [facility] Comment on above: IG% - Immature Granu locytes (promyelocytes, myelocytes and metamyelocytes) > 1% indicates that a LEFT SHIFT is Present. MCV (mean corpuscular volume ) determinationOrdered By: Yaz Dee on 12-21-2024 MCV (RBC) [Entitic vol] 86.6 fL 80-94 [facility] Mean corpuscular hemoglobin (MCH) determinationOrdered By: Yaz Dee on 12-21-2024 MCH (RBC) [Entitic mass] 27.2 pg 27.0-32.0 [facility] Mean corpuscular hemoglobin concentration (MCHC) determinationOrdered By: Yaz Dee on 12-21-2024 MCHC (RBC) [Mass/Vol] 31.3 g/dL Low 32-36 [facility] Mean platelet volume determi nationOrdered By: Yaz Dee on 12-21-2024 Platelet mean volume (Bld) [Entitic vol] 9.8 fL 6.2-12.0 [facility] Monocyte percentageOrdered B y: Yaz Dee on 12-21-2024 Monocytes/100 WBC (Bld) 13.4 % High 0-10 [facility] Neutrophil percentageOrdered By: Yaz Dee on 12-21-2024 Neutrophils/100 WBC (Bld) 68.8 % 47-70 [facility] Nucleated red blood cell per centageOrdered By: Yaz Dee on 12-21-2024 Nucleated RBC/100 WBC (Bld) [Ratio] 0 % 0-5 [facility] Platelet countOrdered By: Aram Dee on 12-21-2024 Platelets (Bld) [#/Vol] 191 10*3/uL 150-450 [facility] Potassium measurement (mass/ volume)Ordered By: Yaz Dee on 12-21-2024 Potassium (Unsp spec) [Mass/Vol] 4.5 mmol/L 3.3-5.1 [facility] Comment on above: Hemolysis present, R esults could be affected. RBC Auto (Bld) [#/Vol]Ordere d By: Yaz Dee on 12-21-2024 RBC (Bld) [#/Vol] 5.23 10*6/uL 4.6-6.2 [facility] Serum creatinine measurement (mass/volume)Ordered By: Yaz Dee on 12-21-2024 Creatinine [Mass/Vol] 0.86 mg/dL 0.70-1.20 [facility] Serum glucose measurement (m ass/volume)Ordered By: Yaz Dee on 12-21-2024 Glucose [Mass/Vol] 126 mg/dL High 70-99 [facility] Serum or plasma calcium scott urement (mass/volume)Ordered By: Yaz Dee on 12-21-2024 Calcium [Mass/Vol] 9.2 mg/dL 7.6-11.0 [facility] Serum or plasma urea nitroge n measurement (mass/volume)Ordered By: Yaz Dee on 12-21-2024 Urea nitrogen [Mass/Vol] 12 mg/dL 4-19 [facility] Sodium levelOrdered By: Unique Dee on 12-21-2024 Sodium [Moles/Vol] 140 mmol/L 133-145 [facility] White blood cell (WBC) count Ordered By: Yaz Dee on 12-21-2024 WBC (Bld) [#/Vol] 7.4 10*3/uL 4.4-11.0 [facility] Absolute lymphocyte countOrd ered By: Robles Botello on 12-20-2024 Lymphocytes Auto (Unsp spec) [#/Vol] 0.89 10*3/uL 0.83-4.51 [facility] Absolute neutrophil countOrd ered By: Robles Botello on 12-20-2024 Neutrophils (Bld) [#/Vol] 6.4 10*3/uL 2.0-7.7 [facility] Anion gap in Serum or Plasma Ordered By: Robles Botello on 12-20-2024 Anion gap [Moles/Vol] 10 mmol/L 5-15 [facility] Automated lymphocyte count a s percentage of total leukocytesOrdered By: Robles Botello on 12-20-2024 Lymphocytes/100 WBC Auto (Unsp spec) 10.6 % Low 19-41 [facility] BUN/creatinine ratioOrdered By: Robles Botello on 12-20-2024 Urea nitrogen/Creatinine [Mass ratio] 12.3 mg/mg 10-20 [facility] Basic Metabolic Profile (BMP )on 12-20-2024 BUN/CRE 12.3 RATIO Normal -20 [facility] Comment on above: Performed By: #### L 100.0500, L500.4050 #### [facility] [address] [place], [address] Calcium [Mass/Vol] 9.2 mg/dL Normal 7.6-11.0 [facility] Comment on above: Performed By: #### L 100.0500, L500.4050 #### [facility] [address] [place], [address] Chloride [Moles/Vol] 98 mmol/L Normal 98-108 [facility] Comment on above: Performed By: #### L 100.0500, L500.4050 #### [facility] [address] [place], [address] CO2 [Moles/Vol] 26.7 mmol/L Normal 21.0-32.0 [facility] Comment on above: Performed By: #### L 100.0500, L500.4050 #### [facility] [address] [place], [address] Creatinine [Mass/Vol] 0.94 mg/dL Normal 0.70-1.20 [facility] Comment on above: Performed By: #### L 100.0500, L500.4050 #### [facility] [address] [place], [address] ECRCL 128.93 ml/min Normal 50-250 [facility] Comment on above: Performed By: #### L 100.0500, L500.4050 #### [facility] [address] [place], [address] GAP 10 Normal 5-15 [facility] Comment on above: Performed By: #### L 100.0500, L500.4050 #### [facility] [address] [place], [address] GFR/1.73 sq M.predicted among non-blacks MDRD (S/P/Bld) [Vol rate/Area] 97 mL/min/{1.73_m2} Normal >60 [facility] Comment on above: Result Comment: mL/m in/1.73m2 CKD-EPI Creatinine Equation (2020) Performed By: #### L 100.0500, L500.4050 #### [facility] [address] [place], [address] Glucose [Mass/Vol] 121 mg/dL High 70-99 [facility] Comment on above: Performed By: #### L 100.0500, L500.4050 #### [facility] [address] [place], [address] Potassium [Moles/Vol] 4.2 mmol/L Normal 3.3-5.1 [facility] Comment on above: Performed By: #### L 100.0500, L500.4050 #### [facility] [address] [place], [address] Sodium [Moles/Vol] 134 mmol/L Normal 133-145 [facility] Comment on above: Performed By: #### L 100.0500, L500.4050 #### [facility] [address] [place], [address] Urea nitrogen [Mass/Vol] 12 mg/dL Normal 4-19 [facility] Comment on above: Performed By: #### L 100.0500, L500.4050 #### [facility] [address] [place], [address] Basophil percentageOrdered B y: Robles Botello on 12-20-2024 Basophils/100 WBC (Bld) 0.5 % 0-1 [facility] Bedside Glucoseon 12-20-2024 FINGERSTICK GLU 222 mg/dL High 74-106 [facility] Comment on above: Result Comment: STEPHANIE ATKINSON OF PATIENT CARE PER NURSING PROTOCOL Performed By: #### L 501.080 #### [facility] [address] [place], [address] CBC W/Diff, Automatedon 07-2 -2024 Absolute Lymph 0.89 X10 3/uL Normal 0.83-4.51 [facility] Comment on above: Performed By: #### L 100.0500, L500.4050 #### [facility] [address] [place], [address] Absolute Neut 6.4 X10 3/uL Normal 2.0-7.7 [facility] Comment on above: Performed By: #### L 100.0500, L500.4050 #### [facility] [address] [place], [address] Basophils/100 WBC (Bld) 0.5 % Normal 0-1 [facility] Comment on above: Performed By: #### L 100.0500, L500.4050 #### [facility] [address] [place], [address] Eosinophils/100 WBC (Bld) 1.6 % Normal 0-5 [facility] Comment on above: Performed By: #### L 100.0500, L500.4050 #### [facility] [address] [place], [address] Erythrocyte distribution width (RBC) [Ratio] 13.9 % Normal 11.6-14.6 [facility] Comment on above: Performed By: #### L 100.0500, L500.4050 #### [facility] [address] [place], [address] Hematocrit (Bld) [Volume fraction] 46.2 % Normal 40-54 [facility] Comment on above: Performed By: #### L 100.0500, L500.4050 #### [facility] [address] [place], [address] Hemoglobin (Bld) [Mass/Vol] 14.3 g/dL Normal 13.0-16.5 [facility] Comment on above: Performed By: #### L 100.0500, L500.4050 #### [facility] [address] [place], [address] IG% 0.400 Normal 0.0-0.9 [facility] Comment on above: Result Comment: IG% - Immature Granulocytes (promyelocytes, myelocytes and metamyelocytes) > 1% indicates that a LEFT SHIFT is Present. Performed By: #### L 100.0500, L500.4050 #### [facility] [address] [place], [address] Lymphocytes/100 WBC (Bld) 10.6 % Low 19-41 [facility] Comment on above: Performed By: #### L 100.0500, L500.4050 #### [facility] [address] [place], [address] MCH (RBC) [Entitic mass] 26.9 pg Low 27.0-32.0 [facility] Comment on above: Performed By: #### L 100.0500, L500.4050 #### [facility] [address] [place], [address] MCHC (RBC) [Mass/Vol] 31.0 g/dL Low 32-36 [facility] Comment on above: Performed By: #### L 100.0500, L500.4050 #### [facility] [address] [place], [address] MCV (RBC) [Entitic vol] 87.0 fL Normal 80-94 [facility] Comment on above: Performed By: #### L 100.0500, L500.4050 #### [facility] [address] [place], [address] Monocytes/100 WBC (Bld) 10.6 % High 0-10 [facility] Comment on above: Performed By: #### L 100.0500, L500.4050 #### [facility] [address] [place], [address] Neutrophils/100 WBC (Bld) 76.3 % High 47-70 [facility] Comment on above: Performed By: #### L 100.0500, L500.4050 #### [facility] [address] [place], [address] Nucleated RBC (Bld) [#/Vol] 0 10*3/uL Normal 0-5 [facility] Comment on above: Performed By: #### L 100.0500, L500.4050 #### [facility] [address] [place], [address] Platelet mean volume (Bld) [Entitic vol] 9.8 fL Normal 6.2-12.0 [facility] Comment on above: Performed By: #### L 100.0500, L500.4050 #### [facility] [address] [place], [address] Platelets (Bld) [#/Vol] 198 10*3/uL Normal 150-450 [facility] Comment on above: Performed By: #### L 100.0500, L500.4050 #### [facility] [address] [place], [address] RBC (Bld) [#/Vol] 5.31 10*6/uL Normal 4.6-6.2 [facility] Comment on above: Performed By: #### L 100.0500, L500.4050 #### [facility] [address] [place], [address] RDW SD 44.4 fl High 35.1-43.9 [facility] Comment on above: Performed By: #### L 100.0500, L500.4050 #### [facility] [address] [place], [address] WBC (Bld) [#/Vol] 8.4 10*3/uL Normal 4.4-11.0 [facility] Comment on above: Performed By: #### L 100.0500, L500.4050 #### [facility] [address] [place], [address] CTA Chest W/WO Contraston CTA Chest W/WO Contrast [facility] Imaging Services [address] [facility] [place] [address] CTA Chest W/WO Contrast MR#: [id number] Acct: [id number] Name: CARLOS ALBERTO KELLEY Jr. Rep #: [id number] : 1970 M 54 From: Shawn Lewis MD PCP: Dr. Jhonatan Garcia, Status: REG ER Study: CTA Chest W/WO Contrast Date of Exam: 12/20/24 Exam# [id number] Ordering Dr: Nguyễn Al DO PROCEDURE: CTA [...] No embolism, dissection, or pneumonia. Reading Location: [place] [address] CC: Dr. Jhonatan Garcia DO; Dr. Nguyễn Al DO Pack Worker: Signed Normal [facility] Carbon dioxide, total [Moles /volume] in Central venous bloodOrdered By: Robles Botello on 12-20-2024 CO2 [Moles/Vol] 26.7 mmol/L 21.0-32.0 [facility] Chloride assayOrdered By: Otis Botello on 12-20-2024 Chloride [Moles/Vol] 98 mmol/L 98-108 [facility] Consultation - Surgicalon Consultation - Surgical [facility] Medical Records Department [address] [place] [address] Consultation - Surgical 12/20/24 1439 MR#: [id number] Acct: [id number] Name: CARLOS ALBERTO KELLEY Jr. Rep #: [id number] : 1970 54 From: Austin Estrada MD [...] CT scan. Patient has been in a custodial recently secondary to immobility because of a right lower extremity external fixator. He presented to the emergency department yesterday for chest pain and was getting a CT scan to rule out a DVT PE. He was discharged home to the custodial last night and return today for the [...] of atrial fibrillation and is on Coumadin. [facility] Medical History Ankle fracture, right Insomnia [...] Type Severity Reaction Status Date / Time Xvlvtdj-YTY-QkB Reductase Allergy Mild Hives Verified 12/20/24 13:07 Inhibitor Social History housing: custodial Smoking Status: Former smoker Physical Exam Narrative Right upper Extremity Inspection: Dorsal hand swelling with superficial blistering. No streaking erythema. Palpation: No crepitus. Compartments of the forearm and the hand are all soft. Some tenderness to palpation of the dors (more content not included)... Normal [facility] D-Dimer Quantitative (DVT/PE )on 12-20-2024 D-DIMER QUANT 0.58 FEU/ug/m Invalid Interpretation Code 0.27-0.49 [facility] Comment on above: Result Comment: D-Di joanne ELEVATED (>0.49): Additional studies and clinical assessments are indicated to conclude diagnosis of: Deep Vein Thrombosis (DVT) or Pulmonary Embolism (PE) CRITICAL VALUE CALLED TO LEXIS 12/20/24 0020 Marquez Swain. RESULTS READ BACK BY SAME. Performed By: #### L 100.0500, L500.4050 #### [facility] [address] [place], [place], [id number] Emergency Department Summary on 12-20-2024 Emergency Department Summary [facility] Medical Records Department [address] [place] [address] Emergency Department Summary 12/20/24 MR#: [id number] Acct: [id number] Name: CARLOS ALBERTO KELLEY Jr. Rep #: [id number] : 1970 54 From: Robles Botello MD PCP: Dr. Jhonatan Garcia, DO Status:[facility] ER Location: ED HPI History of Present [...] the swelling but is also very itchy. [facility] Medical History Ankle fracture, right Insomnia Obstructive [...] Type Severity Reaction Status Date / Time Qszexwa-PMU-AoH Reductase Allergy Mild Hives Verified 12/20/24 13:07 Inhibitor Social History housing: custodial Smoking Status: Former smoker ROS ROS ED [...] he can (more content not included)... Normal [facility] Eosinophil percentageOrdered By: Robles Botello on 12-20-2024 Eosinophils/100 WBC (Bld) 1.6 % 0-5 [facility] Erythrocyte distribution wid th ratioOrdered By: Robleselma Botello on 12-20-2024 Erythrocyte distribution width (RBC) [Ratio] 13.9 % 11.6-14.6 [facility] Erythrocyte distribution wid th standard deviationOrdered By: [facility] on 12-20-2024 Erythrocyte distribution width (RBC) [Ratio] 44.4 fl High 35.1-43.9 [facility] Glomerular filtration rate ( GFR) estimation/1.73 sq m using serum, plasma, or whole bOrdered By: Robles Botello on 12-20-2024 GFR/1.73 sq M.predicted among non-blacks MDRD (S/P/Bld) [Vol rate/Area] 97 mL/min/{1.73_m2} >60 [facility] Comment on above: mL/min/1.73m2 CKD-EP I Creatinine Equation (2020) H AND P Exam - [facility] 12-20-2024 H&P Exam - Hospitalist [facility] Medical Records Department [address] [place] [address] H P Exam - Hospitalist 12/20/24 1675 MR#: [id number] Acct: [id number] Name: CARLOS ALBERTO KELLEY Jr. Rep #: [id number] : 1970 54 From: Yaz Dee MD PCP: Dr. Jhonatan Garcia, DO Status:[facility] Location: MS3 [id number] HPI - General General Date of Admission: 12/20/24 Date of Service: 12/20/24 Chief Complaint: Right hand pain and swelling HPI Narrative CARLOS ALBERTO KELLEY, is b36-bidn-jdc male history of hypertension, gout, cardiomyopathy, GERD, diabetes, depression and anxiety, KOFFI who presented [facility] ED 12/20/2024 for right hand pain, swelling, [...] but no other new or acute complaints [facility] Medical History Ankle fracture, right Insomnia [...] Type Severity Reaction Status Date / Time Mexdosf-PRM-PvT Reductase Allergy Mild Hives Verified 12/20/24 13:07 Inhibitor Social History housing: custodial Smoking Status: Former smoker ROS ROS Narrative [...] Denies weak (more content not included)... Normal [facility] Hand Min 3 Viewson Hand Min 3 Views [facility] Imaging Services [address] [place], [place] [id number] Hand Min 3 Views MR#: [id number] Acct: [id number] Name: CARLOS ALBERTO KELLEY Rep #: [id number] : 1970 M 54 From: Trace Lundberg MD PCP: Dr. Jhonatan Garcia DO Status: REG ER Study: Hand Min 3 Views Date of Exam: 12/20/24 Exam# [id number] Ordering Dr: Robles Botello MD PROCEDURE: HAND [...] swelling. No significant bony abnormality Reading Location: [id number] CC: Dr. Robles Botello MD; Dr. Jhonatan Garcia DO Pack Worker: Signed Normal [facility] Hematocrit Auto (Bld) [Volum e fraction]Ordered By: Robles Botello on 12-20-2024 Hematocrit (Bld) [Volume fraction] 46.2 % 40-54 [facility] Hemoglobin measurementOrdere d By: Robles Botello on 12-20-2024 Hemoglobin (Bld) [Mass/Vol] 14.3 g/dL 13.0-16.5 [facility] Immature granulocytes/100 WB C Auto (Bld)Ordered By: Robles Botello on 12-20-2024 Immature granulocytes/100 WBC (Bld) 0.400 % 0.0-0.9 [facility] Comment on above: IG% - Immature Granu locytes (promyelocytes, myelocytes and metamyelocytes) > 1% indicates that a LEFT SHIFT is Present. MCV (mean corpuscular volume ) determinationOrdered By: Robles Botello on 12-20-2024 MCV (RBC) [Entitic vol] 87.0 fL 80-94 [facility] Mean corpuscular hemoglobin (MCH) determinationOrdered By: Robles Botello on 12-20-2024 MCH (RBC) [Entitic mass] 26.9 pg Low 27.0-32.0 [facility] Mean corpuscular hemoglobin concentration (MCHC) determinationOrdered By: Robles Botello on 12-20-2024 MCHC (RBC) [Mass/Vol] 31.0 g/dL Low 32-36 [facility] Mean platelet volume determi nationOrdered By: Robles Botello on 12-20-2024 Platelet mean volume (Bld) [Entitic vol] 9.8 fL 6.2-12.0 [facility] Monocyte percentageOrdered B y: Robles Botello on 12-20-2024 Monocytes/100 WBC (Bld) 10.6 % High 0-10 [facility] Neutrophil percentageOrdered By: Robles Botello on 12-20-2024 Neutrophils/100 WBC (Bld) 76.3 % High 47-70 [facility] Nucleated red blood cell per centageOrdered By: Robles Botello on 12-20-2024 Nucleated RBC/100 WBC (Bld) [Ratio] 0 % 0-5 [facility] Platelet countOrdered By: Otis Botello on 12-20-2024 Platelets (Bld) [#/Vol] 198 10*3/uL 150-450 [facility] Potassium measurement (mass/ volume)Ordered By: Robles Botello on 12-20-2024 Potassium (Unsp spec) [Mass/Vol] 4.2 mmol/L 3.3-5.1 [facility] RBC Auto (Bld) [#/Vol]Ordere d By: Robles Botello on 12-20-2024 RBC (Bld) [#/Vol] 5.31 10*6/uL 4.6-6.2 [facility] Serum creatinine measurement (mass/volume)Ordered By: Robles Botello on 12-20-2024 Creatinine [Mass/Vol] 0.94 mg/dL 0.70-1.20 [facility] Serum glucose measurement (m ass/volume)Ordered By: Robles Botello on 12-20-2024 Glucose [Mass/Vol] 121 mg/dL High 70-99 [facility] Serum or plasma calcium scott urement (mass/volume)Ordered By: Robles Botello on 12-20-2024 Calcium [Mass/Vol] 9.2 mg/dL 7.6-11.0 [facility] Serum or plasma urea nitroge n measurement (mass/volume)Ordered By: Robles Botello on 12-20-2024 Urea nitrogen [Mass/Vol] 12 mg/dL 4-19 [facility] Sodium levelOrdered By: Liu Botello on 12-20-2024 Sodium [Moles/Vol] 134 mmol/L 133-145 [facility] Troponin T HS 2 HRon 025 Trop T High Sen 16 ng/L Normal <=22 [facility] Comment on above: Performed By: #### L 100.0500, L500.4050 #### [facility] [address] [place], [address] Troponin T HS 4 HRon 025 Trop T High Sen Normal <=22 [facility] Comment on above: Result Comment: [facility] DEPART[facility] ER. Performed By: #### L 100.0500, L500.4050 #### [facility] [address] [place], [address] Troponin T.cardiac [Mass/vol ume] in Serum or Plasma by High sensitivity methodOrdered By: Nguyễn Al on 12-20-2024 Troponin T.cardiac High sensitivity method [Mass/Vol] 16 ng/L <22 [facility] White blood cell (WBC) count Ordered By: Robles Botello on 12-20-2024 WBC (Bld) [#/Vol] 8.4 10*3/uL 4.4-11.0 [facility] 12 Lead EKGon 12-19-2024 12 Lead EKG [facility] Cardiovascular Services [address] [place] [address] 12 Lead EKG 12/19/24 2229 MR#: [id number] Acct: [id number] Name: CARLOS ALBERTO KELLEY Jr. Rep #: [id number] : 1970 54 From: Landry Etienne MD [...] Abnormal ECG Confirmed by LANDRY ETIENNE MD ([id number]), editor house organ DONNA TOLENTINO ([id number]) on 12/23/2024 9:43:55 AM Referred By: TL Confirmed By: LANDRY ETIENNE MD 12/23/24 0943 Date Landry Etienne MD CC: Dr. Jhonatan Garcia DO; Dr. Nguyễn Al DO Signed Normal [facility] Absolute lymphocyte countOrd ered By: Nguyễn Al on 12-19-2024 Lymphocytes Auto (Unsp spec) [#/Vol] 1.20 10*3/uL 0.83-4.51 [facility] Absolute neutrophil countOrd ered By: Nguyễn Al on 12-19-2024 Neutrophils (Bld) [#/Vol] 6.1 10*3/uL 2.0-7.7 [facility] Anion gap in Serum or Plasma Ordered By: Nguyễn Al on 12-19-2024 Anion gap [Moles/Vol] 10 mmol/L 5-15 [facility] Automated lymphocyte count a s percentage of total leukocytesOrdered By: Nguyễn Al on 12-19-2024 Lymphocytes/100 WBC Auto (Unsp spec) 14.4 % Low 19-41 [facility] BUN/creatinine ratioOrdered By: Nguyễn Al on 12-19-2024 Urea nitrogen/Creatinine [Mass ratio] 13.8 mg/mg 10- [facility] Basic Metabolic Profile (BMP )on 12-19-2024 BUN/CRE 13.8 RATIO Normal - [facility] Comment on above: Performed By: #### L 100.0500, L500.4050 #### [facility] [address] [place], [address] Calcium [Mass/Vol] 8.8 mg/dL Normal 7.6-11.0 [facility] Comment on above: Performed By: #### L 100.0500, L500.4050 #### [facility] [address] [place], [address] Chloride [Moles/Vol] 97 mmol/L Low 98-108 [facility] Comment on above: Performed By: #### L 100.0500, L500.4050 #### [facility] [address] [place], [address] CO2 [Moles/Vol] 25.7 mmol/L Normal 21.0-32.0 [facility] Comment on above: Performed By: #### L 100.0500, L500.4050 #### [facility] [address] [place], [address] Creatinine [Mass/Vol] 1.01 mg/dL Normal 0.70-1.20 [facility] Comment on above: Performed By: #### L 100.0500, L500.4050 #### [facility] [address] [place], [address] ECRCL 120.67 ml/min Normal 50-250 [facility] Comment on above: Performed By: #### L 100.0500, L500.4050 #### [facility] [address] [place], [address] GAP 10 Normal 5-15 [facility] Comment on above: Performed By: #### L 100.0500, L500.4050 #### [facility] [address] [place], [address] GFR/1.73 sq M.predicted among non-blacks MDRD (S/P/Bld) [Vol rate/Area] 89 mL/min/{1.73_m2} Normal >60 [facility] Comment on above: Result Comment: mL/m in/1.73m2 CKD-EPI Creatinine Equation (2020) Performed By: #### L 100.0500, L500.4050 #### [facility] [address] [place], [address] Glucose [Mass/Vol] 180 mg/dL High 70-99 [facility] Comment on above: Performed By: #### L 100.0500, L500.4050 #### [facility] [address] [place], [address] Potassium [Moles/Vol] 4.1 mmol/L Normal 3.3-5.1 [facility] Comment on above: Performed By: #### L 100.0500, L500.4050 #### [facility] [address] [place], [address] Sodium [Moles/Vol] 133 mmol/L Normal 133-145 [facility] Comment on above: Performed By: #### L 100.0500, L500.4050 #### [facility] [address] [place], [address] Urea nitrogen [Mass/Vol] 14 mg/dL Normal 4-19 [facility] Comment on above: Performed By: #### L 100.0500, L500.4050 #### [facility] [address] [place], [address] Basophil percentageOrdered B y: Nguyễn Al on 12-19-2024 Basophils/100 WBC (Bld) 0.5 % 0-1 [facility] CBC W/Diff, Automatedon 11-27 Absolute Lymph 1.20 X10 3/uL Normal 0.83-4.51 [facility] Comment on above: Performed By: #### L 100.0500, L500.4050 #### [facility] [address] [place], [address] Absolute Neut 6.1 X10 3/uL Normal 2.0-7.7 [facility] Comment on above: Performed By: #### L 100.0500, L500.4050 #### [facility] [address] [place], [address] Basophils/100 WBC (Bld) 0.5 % Normal 0-1 [facility] Comment on above: Performed By: #### L 100.0500, L500.4050 #### [facility] [address] [place], [address] Eosinophils/100 WBC (Bld) 1.3 % Normal 0-5 [facility] Comment on above: Performed By: #### L 100.0500, L500.4050 #### [facility] [address] [place], [address] Erythrocyte distribution width (RBC) [Ratio] 13.9 % Normal 11.6-14.6 [facility] Comment on above: Performed By: #### L 100.0500, L500.4050 #### [facility] [address] [place], [address] Hematocrit (Bld) [Volume fraction] 44.2 % Normal 40-54 [facility] Comment on above: Performed By: #### L 100.0500, L500.4050 #### [facility] [address] [place], [address] Hemoglobin (Bld) [Mass/Vol] 13.7 g/dL Normal 13.0-16.5 [facility] Comment on above: Performed By: #### L 100.0500, L500.4050 #### [facility] [address] [place], [address] IG% 0.200 Normal 0.0-0.9 [facility] Comment on above: Result Comment: IG% - Immature Granulocytes (promyelocytes, myelocytes and metamyelocytes) > 1% indicates that a LEFT SHIFT is Present. Performed By: #### L 100.0500, L500.4050 #### [facility] [address] [place], [address] Lymphocytes/100 WBC (Bld) 14.4 % Low 19-41 [facility] Comment on above: Performed By: #### L 100.0500, L500.4050 #### [facility] [address] [place], [address] MCH (RBC) [Entitic mass] 27.2 pg Normal 27.0-32.0 [facility] Comment on above: Performed By: #### L 100.0500, L500.4050 #### [facility] [address] [place], [address] MCHC (RBC) [Mass/Vol] 31.0 g/dL Low 32-36 [facility] Comment on above: Performed By: #### L 100.0500, L500.4050 #### [facility] [address] [place], [address] MCV (RBC) [Entitic vol] 87.7 fL Normal 80-94 [facility] Comment on above: Performed By: #### L 100.0500, L500.4050 #### [facility] [address] [place], [address] Monocytes/100 WBC (Bld) 10.6 % High 0-10 [facility] Comment on above: Performed By: #### L 100.0500, L500.4050 #### [facility] [address] [place], [address] Neutrophils/100 WBC (Bld) 73.0 % High 47-70 [facility] Comment on above: Performed By: #### L 100.0500, L500.4050 #### [facility] [address] [place], [address] Nucleated RBC (Bld) [#/Vol] 0 10*3/uL Normal 0-5 [facility] Comment on above: Performed By: #### L 100.0500, L500.4050 #### [facility] [address] [place], [address] Platelet mean volume (Bld) [Entitic vol] 9.8 fL Normal 6.2-12.0 [facility] Comment on above: Performed By: #### L 100.0500, L500.4050 #### [facility] [address] [place], [address] Platelets (Bld) [#/Vol] 177 10*3/uL Normal 150-450 [facility] Comment on above: Performed By: #### L 100.0500, L500.4050 #### [facility] [address] [place], [address] RBC (Bld) [#/Vol] 5.04 10*6/uL Normal 4.6-6.2 [facility] Comment on above: Performed By: #### L 100.0500, L500.4050 #### [facility] [address] [place], [address] RDW SD 44.8 fl High 35.1-43.9 [facility] Comment on above: Performed By: #### L 100.0500, L500.4050 #### [facility] [address] [place], [address] WBC (Bld) [#/Vol] 8.4 10*3/uL Normal 4.4-11.0 [facility] Comment on above: Performed By: #### L 100.0500, L500.4050 #### [facility] [address] [place], [address] Carbon dioxide, total [Moles /volume] in Central venous bloodOrdered By: Nguyễn Al on 12-19-2024 CO2 [Moles/Vol] 25.7 mmol/L 21.0-32.0 [facility] Chest 1 View (Portable)on Chest 1 View (Portable) [facility] Imaging Services [address] [place] [address] Chest 1 View (Portable) MR#: [id number] Acct: [id number] Name: CARLOS ALBERTO KELLEY Jr. Rep #: [id number] : 1970 M 54 From: Jordan Avalos MD PCP: STACE[facility] Pena Status: PRE ER Study: Chest 1 View (Portable) Date of Exam: 12/19/24 Exam# [id number] Ordering Dr: Nguyễn Al DO PROCEDURE: CHEST [...] CC: STACEY Correa; Dr. Nguyễn Al DO Pack Worker: Signed Normal [facility] Chloride assayOrdered By: Shankar Al on 12-19-2024 Chloride [Moles/Vol] 97 mmol/L Low 98-108 [facility] Emergency Department Summary on 12-19-2024 Emergency Department Summary [facility] Medical Records Department [address] [place] [address] Emergency Department Summary 12/19/24 MR#: [id number] Acct: [id number] Name: CARLOS ALBERTO KELLEY . Rep #: [id number] : 1970 54 From: Nguyễn Tavera PCP: Dr. Jhonatan Garcia DO Status:DEP ER Location: ED HPI History of Present Illness Chief Complaint: Chest Pain Informant: patient Narrative Narrative: Brought in by EMS [facility] chest pain at rest. Intermittent sharp sensation and reports dyspnea with it. No recent cough. No nausea. No radicular symptoms. History of paroxysmal A-fib on Coumadin. 8 weeks ago right ankle fracture dislocation with current Ex-Fix. He was manage at [facility]. He has been at the facility for [...] Immobilization, Prior DVT or PE or Cancer [facility] Medical History Ankle fracture, right Insomnia Obstructive [...] Type Severity Reaction Status Date / Time Tojnpdv-SIV-XxC Reductase Allergy Mild Hives Verified 12/19/24 22:20 [...] Temperature Sour (more content not included)... Normal [facility] Eosinophil percentageOrdered By: Nguyễn Al on 12-19-2024 Eosinophils/100 WBC (Bld) 1.3 % 0-5 [facility] Erythrocyte distribution wid th ratioOrdered By: Nguyễn Al on 12-19-2024 Erythrocyte distribution width (RBC) [Ratio] 13.9 % 11.6-14.6 [facility] Erythrocyte distribution wid th standard deviationOrdered By: Nguyễn Al on 12-19-2024 Erythrocyte distribution width (RBC) [Ratio] 44.8 fl High 35.1-43.9 [facility] Glomerular filtration rate ( GFR) estimation/1.73 sq m using serum, plasma, or whole bOrdered By: Nguyễn Al on 12-19-2024 GFR/1.73 sq M.predicted among non-blacks MDRD (S/P/Bld) [Vol rate/Area] 89 mL/min/{1.73_m2} >60 [facility] Comment on above: mL/min/1.73m2 CKD-EP I Creatinine Equation (2020) Hematocrit Auto (Bld) [Volum e fraction]Ordered By: Nguyễn Al on 12-19-2024 Hematocrit (Bld) [Volume fraction] 44.2 % 40-54 [facility] Hemoglobin measurementOrdere d By: Nguyễn Al on 12-19-2024 Hemoglobin (Bld) [Mass/Vol] 13.7 g/dL 13.0-16.5 [facility] Immature granulocytes/100 WB C Auto (Bld)Ordered By: Nguyễn Al on 12-19-2024 Immature granulocytes/100 WBC (Bld) 0.200 % 0.0-0.9 [facility] Comment on above: IG% - Immature Granu locytes (promyelocytes, myelocytes and metamyelocytes) > 1% indicates that a LEFT SHIFT is Present. International normalized rat io (INR) calculationOrdered By: Nguyễn Al on 12-19-2024 INR Coag (Bld) [Relative time] 1.5 {INR} [facility] L501.4021on 12-19-2024 Trop T High Sen 11 ng/L Normal <=22 [facility] Comment on above: Performed By: #### L 100.0500, L500.4050 #### [facility] [address] [place], [place], [id number] MCV (mean corpuscular volume ) determinationOrdered By: Nguyễn Al on 12-19-2024 MCV (RBC) [Entitic vol] 87.7 fL 80-94 [facility] Mean corpuscular hemoglobin (MCH) determinationOrdered By: Nguyễn Al on 12-19-2024 MCH (RBC) [Entitic mass] 27.2 pg 27.0-32.0 [facility] Mean corpuscular hemoglobin concentration (MCHC) determinationOrdered By: Nguyễn Al on 12-19-2024 MCHC (RBC) [Mass/Vol] 31.0 g/dL Low 32-36 [facility] Mean platelet volume determi nationOrdered By: Nguyễn Al on 12-19-2024 Platelet mean volume (Bld) [Entitic vol] 9.8 fL 6.2-12.0 [facility] Monocyte percentageOrdered B y: Nguyễn Al on 12-19-2024 Monocytes/100 WBC (Bld) 10.6 % High 0-10 [facility] Neutrophil percentageOrdered By: Nguyễn Al on 12-19-2024 Neutrophils/100 WBC (Bld) 73.0 % High 47-70 [facility] Nucleated red blood cell per centageOrdered By: Nguyễn Al on 12-19-2024 Nucleated RBC/100 WBC (Bld) [Ratio] 0 % 0-5 [facility] Platelet countOrdered By: Shankar Al on 12-19-2024 Platelets (Bld) [#/Vol] 177 10*3/uL 150-450 [facility] Potassium measurement (mass/ volume)Ordered By: Nguyễn Al on 12-19-2024 Potassium (Unsp spec) [Mass/Vol] 4.1 mmol/L 3.3-5.1 [facility] Prothrombin Time w/INRon INR Coag (PPP) [Relative time] 1.5 {INR} Normal [facility] Comment on above: Performed By: #### L 100.0500, L500.4050 #### [facility] [address] [place], [place], [id number] PT Coag (PPP) [Time] 18.1 s High 11.7-14.9 [facility] Comment on above: Performed By: #### L 100.0500, L500.4050 #### [facility] [address] [place], [address] Prothrombin timeOrdered By: Nguyễn Herberth on 12-19-2024 PT Coag (PPP) [Time] 18.1 s High 11.7-14.9 [facility] RBC Auto (Bld) [#/Vol]Ordere d By: Nguyễn Al on 12-19-2024 RBC (Bld) [#/Vol] 5.04 10*6/uL 4.6-6.2 [facility] Serum creatinine measurement (mass/volume)Ordered By: Nguyễn Le on 12-19-2024 Creatinine [Mass/Vol] 1.01 mg/dL 0.70-1.20 [facility] Serum glucose measurement (m ass/volume)Ordered By: Nguễyn Al on 12-19-2024 Glucose [Mass/Vol] 180 mg/dL High 70-99 [facility] Serum or plasma calcium scott urement (mass/volume)Ordered By: Nguyễn Al on 12-19-2024 Calcium [Mass/Vol] 8.8 mg/dL 7.6-11.0 [facility] Serum or plasma urea nitroge n measurement (mass/volume)Ordered By: Nguyễn Al on 12-19-2024 Urea nitrogen [Mass/Vol] 14 mg/dL 4-19 [facility] Sodium levelOrdered By: Nguyễn Al on 12-19-2024 Sodium [Moles/Vol] 133 mmol/L 133-145 [facility] Troponin T.cardiac [Mass/vol ume] in Serum or Plasma by High sensitivity methodOrdered By: Nguyễn Al on 12-19-2024 Troponin T.cardiac High sensitivity method [Mass/Vol] 11 ng/L <22 [facility] White blood cell (WBC) count Ordered By: Nguyễn Al on 12-19-2024 WBC (Bld) [#/Vol] 8.4 10*3/uL 4.4-11.0 [facility] .GFRon 12-13-2024 Estimated Glomerular Filtration Rate 109 ml/min/1.73sqm Normal [facility] Comment on above: Result Comment: Stages [...] GFR, ADIFF, DIMER, CBC, PBNP, TROPHS #### [address] [address] BMPon 12-13-2024 BUN/Creatinine Ratio 29 ratio High 7-27 [facility] Comment on above: Order Comment: Speci men hemolyzed. Notified Romay @12/13/2024 09:23:59 EDT BP Performed By: #### A ELY REYES, BMP, MG, GFR, ADIFF, DIMER, CBC, PBNP, TROPHS #### [address] [address] Calcium [Mass/Vol] 8.8 mg/dL Normal 8.4-10.2 [facility] Comment on above: Order Comment: Speci men hemolyzed. Notified Kalcey @12/13/2024 09:23:59 EDT BP Performed By: #### A ELY REYES, BMP, MG, GFR, ADIFF, DIMER, CBC, PBNP, TROPHS #### [address] [address] Chloride [Moles/Vol] 102 mmol/L Normal 98-107 [facility] Comment on above: Order Comment: Speci men hemolyzed. Notified Kalcey @12/13/2024 09:23:59 EDT BP Performed By: #### A ELY REYES, BMP, MG, GFR, ADIFF, DIMER, CBC, PBNP, TROPHS #### [address] [address] CO2 [Moles/Vol] 32 mmol/L High 22-29 [facility] Comment on above: Order Comment: Speci men hemolyzed. Notified TrackerSpherecey @12/13/2024 09:23:59 EDT BP Performed By: #### A ELY REYES, BMP, MG, GFR, ADIFF, DIMER, CBC, PBNP, TROPHS #### [address] [address] Creatinine [Mass/Vol] 0.73 mg/dL Normal 0.67-1.17 [facility] Comment on above: Order Comment: Speci men hemolyzed. Notified TrackerSpherecey @12/13/2024 09:23:59 EDT BP Performed By: #### A ELY REYES, BMP, MG, GFR, ADIFF, DIMER, CBC, PBNP, TROPHS #### [address] [address] Electrolyte Balance 4.0 mEq/L Normal 4.0-15.0 [facility] Comment on above: Order Comment: Speci men hemolyzed. Notified Damon @12/13/2024 09:23:59 EDT BP Performed By: #### A ELY REYES, BMP, MG, GFR, ADIFF, DIMER, CBC, PBNP, TROPHS #### [address] [address] Glucose [Mass/Vol] 137 mg/dL High 70-105 [facility] Comment on above: Order Comment: Speci men hemolyzed. Notified Damon @12/13/2024 09:23:59 EDT BP Performed By: #### A ELY REYES, BMP, MG, GFR, ADIFF, DIMER, CBC, PBNP, TROPHS #### [address] [address] Potassium [Moles/Vol] 3.9 mmol/L Normal 3.5-5.1 [facility] Comment on above: Order Comment: Speci men hemolyzed. Notified Romay @12/13/2024 09:23:59 EDT BP Performed By: #### A ELY REYES, BMP, MG, GFR, ADIFF, DIMER, CBC, PBNP, TROPHS #### [address] [address] Sodium [Moles/Vol] 138 mmol/L Normal 136-145 [facility] Comment on above: Order Comment: Speci men hemolyzed. Notified [employer] @12/13/2024 09:23:59 EDT BP Performed By: #### A ELY REYES, BMP, MG, GFR, ADIFF, DIMER, CBC, PBNP, TROPHS #### [address] [address] Urea nitrogen [Mass/Vol] 21 mg/dL High 12-13 [facility] Comment on above: Order Comment: Speci men hemolyzed. Notified Damon @12/13/2024 09:23:59 EDT BP Performed By: #### A ERIC, MDW, BMP, MG, GFR, ADIFF, DIMER, CBC, PBNP, TROPHS #### [facility] [address] [place], [place] [address] LABORATORYOrdered By: SYSTEM SYSTEM on 12-13-2024 Calcium [...] 12-13-2024 Magnesium [Mass/Vol] 1.7 mg/dL Low 1.8-2.4 [facility] Comment on above: Performed By: #### A ELY REYES, BMP, MG, GFR, ADIFF, DIMER, CBC, PBNP, TROPHS #### [address] [address] .GFRon 12-12-2024 Estimated Glomerular Filtration Rate 111 ml/min/1.73sqm Normal [facility] Comment on above: Result Comment: Stages [...] GFR, ADIFF, DIMER, CBC, PBNP, TROPHS #### [address] [address] BMPon 12-12-2024 BUN/Creatinine Ratio 22 ratio Normal 7-27 [facility] Comment on above: Performed By: #### A ELY REYES, BMP, MG, GFR, ADIFF, DIMER, CBC, PBNP, TROPHS #### [address] [address] Calcium [Mass/Vol] 9.2 mg/dL Normal 8.4-10.2 [facility] Comment on above: Performed By: #### A ELY REYES, BMP, MG, GFR, ADIFF, DIMER, CBC, PBNP, TROPHS #### [address] [address] Chloride [Moles/Vol] 103 mmol/L Normal 98-107 [facility] Comment on above: Performed By: #### A ELY REYES, BMP, MG, GFR, ADIFF, DIMER, CBC, PBNP, TROPHS #### [address] [address] CO2 [Moles/Vol] 32 mmol/L High 22-29 [facility] Comment on above: Performed By: #### A ELY REYES, BMP, MG, GFR, ADIFF, DIMER, CBC, PBNP, TROPHS #### [place] [address] Creatinine [Mass/Vol] 0.69 mg/dL Normal 0.67-1.17 [facility] Comment on above: Performed By: #### A ELY REYES, JULIÁN, MG, GFR, ADIFF, DIMER, CBC, PBNP, TROPHS #### [address] [address] Electrolyte Balance 7.0 mEq/L Normal 4.0-15.0 [facility] Comment on above: Performed By: #### A ELY REYES, JULIÁN, MG, GFR, ADIFF, DIMER, CBC, PBNP, TROPHS #### [address] [address] Glucose [Mass/Vol] 115 mg/dL High 70-105 [facility] Comment on above: Performed By: #### A ELY REYES, BMP, MG, GFR, ADIFF, DIMER, CBC, PBNP, TROPHS #### [address] [address] Potassium [Moles/Vol] 3.8 mmol/L Normal 3.5-5.1 [facility] Comment on above: Performed By: #### A ELY REYES, BMP, MG, GFR, ADIFF, DIMER, CBC, PBNP, TROPHS #### [address] [address] Sodium [Moles/Vol] 142 mmol/L Normal 136-145 [facility] Comment on above: Performed By: #### A ELY REYES, BMP, MG, GFR, ADIFF, DIMER, CBC, PBNP, TROPHS #### [place] [id number] [place], [place] [address] Urea nitrogen [Mass/Vol] 15 mg/dL Normal 7-18 [facility] Comment on above: Performed By: #### A ELY REYES, BMP, MG, GFR, ADIFF, DIMER, CBC, PBNP, TROPHS #### [place] [id number] [place], [place] [address] LABORATORYOrdered By: SYSTEM SYSTEM on 12-12-2024 Calcium [...] a homogeneous sandwich chemiluminescent immunoassay based on [employer] technology. Urea nitrogen [Mass/Vol] 15 mg/dL Normal 7 - 18 mg/dL AO ADM SS Urea nitrogen/Creatinine [Mass ratio] 22 ratio Normal 7 - 27 ratio AO ADM SS MGon 12-12-2024 Magnesium [Mass/Vol] 2.0 mg/dL Normal 1.8-2.4 [facility] Comment on above: Performed By: #### A ELY REYES, BMP, MG, GFR, ADIFF, DIMER, CBC, PBNP, TROPHS #### [place] [id number] [place], [place] [address] TROPHSon 12-12-2024 High Sensitivity Troponin I 12 ng/L Normal 0-76 [facility] Comment on above: Result Comment: High Sensitive Troponin I Reference Ranges: Female: 0-51 ng/L Male: 0-76 ng/L Testing performed on [employer] using a homogeneous sandwich chemiluminescent immunoassay based on [employer] technology. Performed By: #### A ELY REYES, BMP, MG, GFR, ADIFF, DIMER, CBC, PBNP, TROPHS #### [place] [id number] [place], [place] [address] XR CHEST 1 VIEWon 12-12-2024 XR CHEST [...] 12/12/2024 6:38:29 AM Ordering Provider: VENITA Kate [facility] .Auto Diffon 12-11-2024 Basophil, Absolute 0.0 10 3/mcL Normal 0.0-0.3 [facility] Comment on above: Performed By: #### A ELY REYES, BMP, MG, GFR, ADIFF, DIMER, CBC, PBNP, TROPHS #### [address] [address] Basophils/100 WBC (Bld) 0.5 % Normal 0.0-2.5 [facility] Comment on above: Performed By: #### A ELY REYES, BMP, MG, GFR, ADIFF, DIMER, CBC, PBNP, TROPHS #### [address] [address] Eosinophil, Absolute 0.1 10 3/mcL Normal 0.0-0.7 [facility] Comment on above: Performed By: #### A ELY REYES, BMP, MG, GFR, ADIFF, DIMER, CBC, PBNP, TROPHS #### [address] [address] Eosinophils/100 WBC (Bld) 1.3 % Normal 0.0-6.0 [facility] Comment on above: Performed By: #### A LEY REYES, BMP, MG, GFR, ADIFF, DIMER, CBC, PBNP, TROPHS #### [address] [address] Lymphocyte, Absolute 0.8 10 3/mcL Low 0.9-4.3 [facility] Comment on above: Performed By: #### A ELY REYES, BMP, MG, GFR, ADIFF, DIMER, CBC, PBNP, TROPHS #### [address] [address] Lymphocytes/100 WBC (Bld) 9.5 % Low 20.0-40.0 [facility] Comment on above: Performed By: #### A ELY REYES, BMP, MG, GFR, ADIFF, DIMER, CBC, PBNP, TROPHS #### [address] [address] Monocyte, Absolute 0.9 10 3/mcL Normal 0.1-1.4 [facility] Comment on above: Performed By: #### A ELY REYES, BMP, MG, GFR, ADIFF, DIMER, CBC, PBNP, TROPHS #### [address] [address] Monocytes/100 WBC (Bld) 10.0 % Normal 2.0-13.0 [facility] Comment on above: Performed By: #### A ELY REYES, JULIÁN, MG, GFR, ADIFF, DIMER, CBC, PBNP, TROPHS #### [address] [address] Neutrophils/100 WBC (Bld) 78.7 % High 50.0-75.0 [facility] Comment on above: Performed By: #### A ELY REYES, JULIÁN, MG, GFR, ADIFF, DIMER, CBC, PBNP, TROPHS #### [address] [address] .GFRon 12-11-2024 Estimated Glomerular Filtration Rate 105 ml/min/1.73sqm Normal [facility] Comment on above: Result Comment: Stages [...] GFR, ADIFF, DIMER, CBC, PBNP, TROPHS #### [place] [address] .MDWon 12-11-2024 Monocyte Distribution Width 18.16 Normal 0.00-20.00 [facility] Comment on above: Result Comment: For ED adult patients suspected of sepsis, MDW<=20.0 does not rule out sepsis or risk of sepsis Performed By: #### A ELY REYES, BMP, MG, GFR, ADIFF, DIMER, CBC, PBNP, TROPHS #### [place] [address] .NEUABSon 12-11-2024 Neutrophil, Absolute 6.9 10 3/mcL Normal 2.3-8.1 [facility] Comment on above: Performed By: #### A ELY REYES, BMP, MG, GFR, ADIFF, DIMER, CBC, PBNP, TROPHS #### [place] [address] CBCon 12-11-2024 Erythrocyte distribution width (RBC) [Ratio] 14.9 % Normal 11.5-15.5 [facility] Comment on above: Performed By: #### A ELY REYES, BMP, MG, GFR, ADIFF, DIMER, CBC, PBNP, TROPHS #### [place] [address] Hematocrit (Bld) [Volume fraction] 43.0 % Normal 40.0-52.0 [facility] Comment on above: Performed By: #### A ELY REYES, BMP, MG, GFR, ADIFF, DIMER, CBC, PBNP, TROPHS #### [place] [address] Hgb 14.0 G/dL Normal 13.0-17.5 [facility] Comment on above: Performed By: #### A ELY REYES, BMP, MG, GFR, ADIFF, DIMER, CBC, PBNP, TROPHS #### [place] [address] MCH (RBC) [Entitic mass] 28.2 pg Normal 27.0-33.0 [facility] Comment on above: Performed By: #### A ELY REYES, BMP, MG, GFR, ADIFF, DIMER, CBC, PBNP, TROPHS #### [address] [address] MCHC 32.7 G/dL Normal 32.0-36.0 [facility] Comment on above: Performed By: #### A ELY REYES, BMP, MG, GFR, ADIFF, DIMER, CBC, PBNP, TROPHS #### [address] [address] MCV (RBC) [Entitic vol] 86.1 fL Normal 81.0-100.0 [facility] Comment on above: Performed By: #### A ELY REYES, BMP, MG, GFR, ADIFF, DIMER, CBC, PBNP, TROPHS #### [address] [address] Platelet 208 10 3/mcL Normal 150-450 [facility] Comment on above: Performed By: #### A ELY REYES, JULIÁN, MG, GFR, ADIFF, DIMER, CBC, PBNP, TROPHS #### [address] [address] Platelet mean volume (Bld) [Entitic vol] 7.9 fL Normal 6.4-10.5 [facility] Comment on above: Performed By: #### A ELY REYES, BMP, MG, GFR, ADIFF, DIMER, CBC, PBNP, TROPHS #### [address] [address] RBC 4.99 10 6/mcL Normal 4.50-6.00 [facility] Comment on above: Performed By: #### A ELY REYES, BMP, MG, GFR, ADIFF, DIMER, CBC, PBNP, TROPHS #### [address] [address] WBC 8.8 10 3/mcL Normal 4.5-10.8 [facility] Comment on above: Performed By: #### A ELY REYES, BMP, MG, GFR, ADIFF, DIMER, CBC, PBNP, TROPHS #### [address] [address] CMPon 12-11-2024 Albumin Level 2.8 G/dL Low 3.5-5.0 [facility] Comment on above: Performed By: #### A ELY REYES, BMP, MG, GFR, ADIFF, DIMER, CBC, PBNP, TROPHS #### [address] [address] Albumin/Globulin [Mass ratio] 0.6 {ratio} Low 1.1-2.5 [facility] Comment on above: Performed By: #### A ELY REYES, BMP, MG, GFR, ADIFF, DIMER, CBC, PBNP, TROPHS #### [place] [address] ALP [Catalytic activity/Vol] 100 U/L Normal 40-135 [facility] Comment on above: Performed By: #### A ELY REYES, BMP, MG, GFR, ADIFF, DIMER, CBC, PBNP, TROPHS #### [address] [address] ALT [Catalytic activity/Vol] 18 U/L Normal 16-63 [facility] Comment on above: Performed By: #### A ELY REYES, BMP, MG, GFR, ADIFF, DIMER, CBC, PBNP, TROPHS #### [address] [address] AST [Catalytic activity/Vol] 8 U/L Low 10-40 [facility] Comment on above: Performed By: #### A ELY REYES, BMP, MG, GFR, ADIFF, DIMER, CBC, PBNP, TROPHS #### [place] [address] Bili Total 0.3 mg/dL Normal 0.2-1.0 [facility] Comment on above: Result Comment: Use of this assay is not recommended for patients undergoing treatment with eltrombopag due to the potential for falsely elevated results. Performed By: #### A ELY REYES, BMP, MG, GFR, ADIFF, DIMER, CBC, PBNP, TROPHS #### [place] [address] BUN/Creatinine Ratio 12 ratio Normal 7-27 [facility] Comment on above: Performed By: #### A ELY REYES, BMP, MG, GFR, ADIFF, DIMER, CBC, PBNP, TROPHS #### [place] [address] Calcium [Mass/Vol] 8.9 mg/dL Normal 8.4-10.2 [facility] Comment on above: Performed By: #### A ELY REYES, BMP, MG, GFR, ADIFF, DIMER, CBC, PBNP, TROPHS #### [place] [address] Chloride [Moles/Vol] 98 mmol/L Normal 98-107 [facility] Comment on above: Performed By: #### A ELY REYES, BMP, MG, GFR, ADIFF, DIMER, CBC, PBNP, TROPHS #### [place] [address] CO2 [Moles/Vol] 32 mmol/L High 22-29 [facility] Comment on above: Performed By: #### A ELY REYES, BMP, MG, GFR, ADIFF, DIMER, CBC, PBNP, TROPHS #### [place] [address] Creatinine [Mass/Vol] 0.82 mg/dL Normal 0.67-1.17 [facility] Comment on above: Performed By: #### A ELY REYES, BMP, MG, GFR, ADIFF, DIMER, CBC, PBNP, TROPHS #### [place] [address] Electrolyte Balance 4.0 mEq/L Normal 4.0-15.0 [facility] Comment on above: Performed By: #### A ELY REYES, BMP, MG, GFR, ADIFF, DIMER, CBC, PBNP, TROPHS #### [address] [address] Globulin 4.6 G/dL High 2.7-4.4 [facility] Comment on above: Performed By: #### A ELY REYES, BMP, MG, GFR, ADIFF, DIMER, CBC, PBNP, TROPHS #### [address] [address] Glucose [Mass/Vol] 165 mg/dL High 70-105 [facility] Comment on above: Performed By: #### A ELY REYES, BMP, MG, GFR, ADIFF, DIMER, CBC, PBNP, TROPHS #### [address] [address] Potassium [Moles/Vol] 3.6 mmol/L Normal 3.5-5.1 [facility] Comment on above: Performed By: #### A ELY REYES, BMP, MG, GFR, ADIFF, DIMER, CBC, PBNP, TROPHS #### [address] [address] Sodium [Moles/Vol] 134 mmol/L Low 136-145 [facility] Comment on above: Performed By: #### A ELY REYES, BMP, MG, GFR, ADIFF, DIMER, CBC, PBNP, TROPHS #### [address] [address] Total Protein 7.4 G/dL Normal 6.4-8.2 [facility] Comment on above: Performed By: #### A ELY REYES, BMP, MG, GFR, ADIFF, DIMER, CBC, PBNP, TROPHS #### [place] [address] Urea nitrogen [Mass/Vol] 10 mg/dL Normal 7-18 [facility] Comment on above: Performed By: #### A ELY REYES, BMP, MG, GFR, ADIFF, DIMER, CBC, PBNP, TROPHS #### [address] [address] [address] ANGIOGRAPHY CHEST W/CONTR [place] 12-11-2024 CT [...] 3:29:36 AM Ordering Provider: DELORES MURO Normal [facility] DIMERon 12-11-2024 D-Dimer 593 ng/mL D-DU High 0-230 [facility] Comment on above: Result Comment: The [...] ADIFF, DIMER, CBC, PBNP, TROPHS #### [place] [id number] [place] [address] LABORATORYOrdered By: SYSTEM SYSTEM on 12-11-2024 Troponin I.cardiac DL <= 0.01 ng/mL [Mass/Vol] 10 ng/L Normal 0 - 76 ng/L AO ADM SS Comment on above: Interpretive Data: H igh Sensitive Troponin I Reference Ranges: Female: 0-51 ng/L Male: 0-76 ng/L Testing performed on [employer] using a homogeneous sandwich chemiluminescent immunoassay based on [employer] Albumin BCP dye [Mass/Vol] 2.8 G/dL Low [...] ng/L Male: 0-76 ng/L Testing performed on [employer] using a homogeneous sandwich chemiluminescent immunoassay based on [employer] technology. Urea nitrogen [Mass/Vol] 10 mg/dL Normal [...] 12-11-2024 Lipase Level 15 U/L Low 16-77 [facility] Comment on above: Performed By: #### A ERIC, MDW, BMP, MG, GFR, ADIFF, DIMER, CBC, PBNP, TROPHS #### [facility] [address] [place], [place] [address] No Panel Informationon 12-11 Legionella Urine Ag Presumptive negative for L. pneumophila serogroup 1 antigen in urine, suggesting no recent or current infection. Legionnaire's disease cannot be ruled out since other serogroups and species may also cause disease. [facility] Streptococcus Pneumoniae Urine Antig Presumptive negative for pneumococcal pneumonia, suggesting no current or recent pneumococcal infection. Infection due to Strep pneumoniae cannot be ruled out since the antigen present in the sample may be below the detection limit of the test. [facility] Comment on above: This test has not be en evaluated on patients taking antibiotics for greater than 24 hours or on patients who have recently completed an antibiotic regimen. The accuracy of this test has not been proven in young children. PBNPon 12-11-2024 Natriuretic peptide B (Bld) [Mass/Vol] 1099 pg/mL High 0-125 [facility] Comment on above: Result Comment: NT-p roBNP results of less than 300 pg/mL effectively rules out acute congestive heart failure with 99% negative predictive value. Performed By: #### A ELY REYES, JULIÁN, MG, GFR, ADIFF, DIMER, CBC, PBNP, TROPHS #### [address] [address] [facility] High Sensitivity Troponin I 10 ng/L Normal 0-76 [facility] Comment on above: Result Comment: High Sensitive Troponin I Reference Ranges: Female: 0-51 ng/L Male: 0-76 ng/L Testing performed on [employer] using a homogeneous sandwich chemiluminescent immunoassay based on [employer] technology. Performed By: #### A ELY REYES, JULIÁN, MG, GFR, ADIFF, DIMER, CBC, PBNP, TROPHS #### [address] [address] High Sensitivity Troponin I 10 ng/L Normal 0-76 [facility] Comment on above: Result Comment: High Sensitive Troponin I Reference Ranges: Female: 0-51 ng/L Male: 0-76 ng/L Testing performed on [employer] using a homogeneous sandwich chemiluminescent immunoassay based on [employer] technology. Performed By: #### A ELY REYES, JULIÁN, MG, GFR, ADIFF, DIMER, CBC, PBNP, TROPHS #### [address] [address] XR CHEST 1 VIEWon 12-11-2024 XR CHEST [...] 12/11/2024 1:19:48 AM Ordering Provider: DELORES Kate [facility] .Auto Diffon 11-28-2024 Basophil, Absolute 0.0 10 3/mcL Normal 0.0-0.3 [facility] Comment on above: Performed By: #### A DIFF, ANEU, BMP, CBC, GFR #### [address] [address] Basophils/100 WBC (Bld) 0.8 % Normal 0.0-2.5 [facility] Comment on above: Performed By: #### A DIFF, ANEU, BMP, CBC, GFR #### [address] [address] Eosinophil, Absolute 0.1 10 3/mcL Normal 0.0-0.7 [facility] Comment on above: Performed By: #### A DIFF, ANEU, BMP, CBC, GFR #### [address] [address] Eosinophils/100 WBC (Bld) 1.7 % Normal 0.0-6.0 [facility] Comment on above: Performed By: #### A DIFF, ANEU, BMP, CBC, GFR #### [address] [address] Lymphocyte, Absolute 0.9 10 3/mcL Normal 0.9-4.3 [facility] Comment on above: Performed By: #### A DIFF, ANEU, BMP, CBC, GFR #### [address] [address] Lymphocytes/100 WBC (Bld) 15.5 % Low 20.0-40.0 [facility] Comment on above: Performed By: #### A DIFF, ANEU, BMP, CBC, GFR #### [facility] [address] [place] [address] Monocyte, Absolute 0.6 10 3/mcL Normal 0.1-1.4 [facility] Comment on above: Performed By: #### A DIFF, ANEU, BMP, CBC, GFR #### [facility] [address] [place] [address] Monocytes/100 WBC (Bld) 11.2 % Normal 2.0-13.0 [facility] Comment on above: Performed By: #### A DIFF, ANEU, BMP, CBC, GFR #### [address] [address] Neutrophils/100 WBC (Bld) 70.8 % Normal 50.0-75.0 [facility] Comment on above: Performed By: #### A DIFF, ANEU, BMP, CBC, GFR #### [address] [address] .GFRon 11-28-2024 Estimated Glomerular Filtration Rate 107 ml/min/1.73sqm Normal [facility] Comment on above: Result Comment: [...] A DIFF, ANEU, BMP, CBC, GFR #### [address] [address] .NEUABSon 11-28-2024 Neutrophil, Absolute 4.1 10 3/mcL Normal 2.3-8.1 [facility] Comment on above: Performed By: #### A DIFF, ANEU, BMP, CBC, GFR #### [address] [address] BMPon 11-28-2024 BUN/Creatinine Ratio 11.7 ratio Normal 10.0-22.0 [facility] Comment on above: Performed By: #### A DIFF, ANEU, BMP, CBC, GFR #### [place] [id number] Calcium [Mass/Vol] 9.2 mg/dL Normal 8.7-10.4 [facility] Comment on above: Performed By: #### A DIFF, ANEU, BMP, CBC, GFR #### [place] [address] Chloride [Moles/Vol] 101 mmol/L Normal 98-110 [facility] Comment on above: Performed By: #### A DIFF, ANEU, BMP, CBC, GFR #### [place] [address] CO2 [Moles/Vol] 31 mmol/L Normal 22-32 [facility] Comment on above: Performed By: #### A DIFF, ANEU, BMP, CBC, GFR #### [place] [address] Creatinine [Mass/Vol] 0.77 mg/dL Normal 0.60-1.40 [facility] Comment on above: Result Comment: Test ing performed on [employer] analyzer using enzymatic creatinine methodology. Performed By: #### A DIFF, ANEU, BMP, CBC, GFR #### [place] [address] Electrolyte Balance 5.0 mEq/L Normal 4.0-15.0 [facility] Comment on above: Performed By: #### A DIFF, ANEU, BMP, CBC, GFR #### [place] [address] Glucose [Mass/Vol] 100 mg/dL Normal 70-110 [facility] Comment on above: Performed By: #### A DIFF, ANEU, BMP, CBC, GFR #### [place] [id number] Potassium [Moles/Vol] 4.0 mmol/L Normal 3.5-5.0 [facility] Comment on above: Performed By: #### A DIFF, ANEU, BMP, CBC, GFR #### [place] [address] Sodium [Moles/Vol] 137 mmol/L Normal 136-145 [facility] Comment on above: Performed By: #### A DIFF, ANEU, BMP, CBC, GFR #### [place] [address] Urea nitrogen [Mass/Vol] 9.0 mg/dL Normal 8.0-22.0 [facility] Comment on above: Performed By: #### A DIFF, ANEU, BMP, CBC, GFR #### [place] [id number] [facility] 11-28-2024 Erythrocyte distribution width (RBC) [Ratio] 15.1 % Normal 11.5-15.5 [facility] Comment on above: Performed By: #### A DIFF, ANEU, BMP, CBC, GFR #### [place] [address] Hematocrit (Bld) [Volume fraction] 42.1 % Normal 40.0-52.0 [facility] Comment on above: Performed By: #### A DIFF, ANEU, BMP, CBC, GFR #### [place] [address] Hgb 13.8 G/dL Normal 13.0-17.5 [facility] Comment on above: Performed By: #### A DIFF, ANEU, BMP, CBC, GFR #### [place] [id number] MCH (RBC) [Entitic mass] 29.0 pg Normal 27.0-33.0 [facility] Comment on above: Performed By: #### A DIFF, ANEU, BMP, CBC, GFR #### [place] [id number] MCHC 32.8 G/dL Normal 32.0-36.0 [facility] Comment on above: Performed By: #### A DIFF, ANEU, BMP, CBC, GFR #### [address] [address] MCV (RBC) [Entitic vol] 88.3 fL Normal 81.0-100.0 [facility] Comment on above: Performed By: #### A DIFF, ANEU, BMP, CBC, GFR #### [address] [address] Platelet 195 10 3/mcL Normal 150-450 [facility] Comment on above: Performed By: #### A DIFF, ANEU, BMP, CBC, GFR #### [address] [address] Platelet mean volume (Bld) [Entitic vol] 8.4 fL Normal 6.4-10.5 [facility] Comment on above: Performed By: #### A DIFF, ANEU, BMP, CBC, GFR #### [place] [address] RBC 4.77 10 6/mcL Normal 4.50-6.00 [facility] Comment on above: Performed By: #### A DIFF, ANEU, BMP, CBC, GFR #### [address] [address] WBC 5.8 10 3/mcL Normal 4.5-10.8 [facility] Comment on above: Performed By: #### A DIFF, ANEU, BMP, CBC, GFR #### [address] [address] LABORATORYOrdered By: Moustapha Winslow on 11-28-2024 Blood Glucose Testing Reason Routine (11/28/24 5:00 PM) [facility] Glucose [Mass/Vol] 89 mg/dL Normal 70 - 110 mg/dL [facility] LABORATORYOrdered By: Andrea Mcagrry on 11-28-2024 Blood Glucose Testing Reason Routine (11/28/24 12:01 PM) [facility] Glucose [Mass/Vol] 91 mg/dL Normal 70 - 110 mg/dL [facility] Blood Glucose Testing Reason Routine (11/28/24 8:15 AM) [facility] Glucose [Mass/Vol] 93 mg/dL Normal 70 - 110 mg/dL [facility] LABORATORYOrdered By: SYSTEM SYSTEM on 11-28-2024 Basophils [...] above: Interpretive Data: T esting performed on [employer] analyzer using enzymatic creatinine methodology. Electrolyte Balance [...] on 11-27-2024 Time of Stated Blood Glucose [id number] [facility] .Auto Diffon 11-26-2024 Basophil, Absolute 0.0 10 3/mcL Normal 0.0-0.3 [facility] Comment on above: Performed By: #### A DIFF, ANEU, BMP, CBC, GFR #### [address] [address] Basophils/100 WBC (Bld) 0.4 % Normal 0.0-2.5 [facility] Comment on above: Performed By: #### A DIFF, ANEU, BMP, CBC, GFR #### [address] [address] Eosinophil, Absolute 0.0 10 3/mcL Normal 0.0-0.7 [facility] Comment on above: Performed By: #### A DIFF, ANEU, BMP, CBC, GFR #### [address] [address] Eosinophils/100 WBC (Bld) 0.7 % Normal 0.0-6.0 [facility] Comment on above: Performed By: #### A DIFF, ANEU, BMP, CBC, GFR #### [address] [address] Lymphocyte, Absolute 0.8 10 3/mcL Low 0.9-4.3 [facility] Comment on above: Performed By: #### A DIFF, ANEU, BMP, CBC, GFR #### [address] [address] Lymphocytes/100 WBC (Bld) 12.2 % Low 20.0-40.0 [facility] Comment on above: Performed By: #### A DIFF, ANEU, BMP, CBC, GFR #### [address] [address] Monocyte, Absolute 0.7 10 3/mcL Normal 0.1-1.4 [facility] Comment on above: Performed By: #### A DIFF, ANEU, BMP, CBC, GFR #### [address] [address] Monocytes/100 WBC (Bld) 11.2 % Normal 2.0-13.0 [facility] Comment on above: Performed By: #### A DIFF, ANEU, BMP, CBC, GFR #### [address] [address] Neutrophils/100 WBC (Bld) 75.5 % High 50.0-75.0 [facility] Comment on above: Performed By: #### A DIFF, ANEU, BMP, CBC, GFR #### [address] [address] .GFRon 11-26-2024 Estimated Glomerular Filtration Rate 103 ml/min/1.73sqm Normal [facility] Comment on above: Result Comment: [...] A DIFF, ANEU, BMP, CBC, GFR #### [address] [address] .NEUABSon 11-26-2024 Neutrophil, Absolute 4.9 10 3/mcL Normal 2.3-8.1 [facility] Comment on above: Performed By: #### A DIFF, ANEU, BMP, CBC, GFR #### [address] [address] BMPon 11-26-2024 BUN/Creatinine Ratio 11.5 ratio Normal 10.0-22.0 [facility] Comment on above: Performed By: #### A DIFF, ANEU, BMP, CBC, GFR #### [address] [address] Calcium [Mass/Vol] 9.0 mg/dL Normal 8.7-10.4 [facility] Comment on above: Performed By: #### A DIFF, ANEU, BMP, CBC, GFR #### [address] [address] Chloride [Moles/Vol] 100 mmol/L Normal 98-110 [facility] Comment on above: Performed By: #### A DIFF, ANEU, BMP, CBC, GFR #### [address] [address] CO2 [Moles/Vol] 29 mmol/L Normal 22-32 [facility] Comment on above: Performed By: #### A DIFF, ANEU, BMP, CBC, GFR #### [address] [address] Creatinine [Mass/Vol] 0.87 mg/dL Normal 0.60-1.40 [facility] Comment on above: Result Comment: Test ing performed on [employer] analyzer using enzymatic creatinine methodology. Performed By: #### A DIFF, ANEU, BMP, CBC, GFR #### [address] [address] Electrolyte Balance 6.0 mEq/L Normal 4.0-15.0 [facility] Comment on above: Performed By: #### A DIFF, ANEU, BMP, CBC, GFR #### [address] [address] Glucose [Mass/Vol] 131 mg/dL High 70-110 [facility] Comment on above: Performed By: #### A DIFF, ANEU, BMP, CBC, GFR #### [address] [address] Potassium [Moles/Vol] 4.4 mmol/L Normal 3.5-5.0 [facility] Comment on above: Performed By: #### A DIFF, ANEU, BMP, CBC, GFR #### [address] [address] Sodium [Moles/Vol] 135 mmol/L Low 136-145 [facility] Comment on above: Performed By: #### A DIFF, ANEU, BMP, CBC, GFR #### [place] [address] Urea nitrogen [Mass/Vol] 10.0 mg/dL Normal 8.0-22.0 [facility] Comment on above: Performed By: #### A DIFF, ANEU, BMP, CBC, GFR #### [place] [address] CBCon 11-26-2024 Erythrocyte distribution width (RBC) [Ratio] 15.0 % Normal 11.5-15.5 [facility] Comment on above: Performed By: #### A DIFF, ANEU, BMP, CBC, GFR #### [place] [address] Hematocrit (Bld) [Volume fraction] 42.6 % Normal 40.0-52.0 [facility] Comment on above: Performed By: #### A DIFF, ANEU, BMP, CBC, GFR #### [place] [address] Hgb 14.2 G/dL Normal 13.0-17.5 [facility] Comment on above: Performed By: #### A DIFF, ANEU, BMP, CBC, GFR #### [place] [address] MCH (RBC) [Entitic mass] 29.5 pg Normal 27.0-33.0 [facility] Comment on above: Performed By: #### A DIFF, ANEU, BMP, CBC, GFR #### [place] [address] MCHC 33.4 G/dL Normal 32.0-36.0 [facility] Comment on above: Performed By: #### A DIFF, ANEU, BMP, CBC, GFR #### [place] [address] MCV (RBC) [Entitic vol] 88.4 fL Normal 81.0-100.0 [facility] Comment on above: Performed By: #### A DIFF, ANEU, BMP, CBC, GFR #### [address] [address] Platelet 140 10 3/mcL Low 150-450 [facility] Comment on above: Performed By: #### A DIFF, ANEU, BMP, CBC, GFR #### [address] [address] Platelet mean volume (Bld) [Entitic vol] 8.6 fL Normal 6.4-10.5 [facility] Comment on above: Performed By: #### A DIFF, ANEU, BMP, CBC, GFR #### [address] [address] RBC 4.82 10 6/mcL Normal 4.50-6.00 [facility] Comment on above: Performed By: #### A DIFF, ANEU, BMP, CBC, GFR #### [address] [address] WBC 6.5 10 3/mcL Normal 4.5-10.8 [facility] Comment on above: Performed By: #### A DIFF, ANEU, BMP, CBC, GFR #### [address] [address] LABORATORYOrdered By: SYSTEM SYSTEM on 11-26-2024 Basophils [...] above: Interpretive Data: T esting performed on [employer] analyzer using enzymatic creatinine methodology. Electrolyte Balance [...] Routine cultures are held for 5 days. [facility] .Auto Diffon 11-25-2024 Basophil, Absolute 0.0 10 3/mcL Normal 0.0-0.3 [facility] Comment on above: Performed By: #### C BC, MG, GFR, ADIFF, BMP, ANEU #### [place] [id number] [address] [place] [address] Basophils/100 WBC (Bld) 0.4 % Normal 0.0-2.5 [facility] Comment on above: Performed By: #### C BC, MG, GFR, ADIFF, BMP, ANEU #### [facility] [address] [place] [address] Eosinophil, Absolute 0.1 10 3/mcL Normal 0.0-0.7 [facility] Comment on above: Performed By: #### C BC, MG, GFR, ADIFF, BMP, ANEU #### [address] [address] Eosinophils/100 WBC (Bld) 0.6 % Normal 0.0-6.0 [facility] Comment on above: Performed By: #### C BC, MG, GFR, ADIFF, BMP, ANEU #### [address] [address] Lymphocyte, Absolute 0.8 10 3/mcL Low 0.9-4.3 [facility] Comment on above: Performed By: #### C BC, MG, GFR, ADIFF, BMP, ANEU #### [address] [address] Lymphocytes/100 WBC (Bld) 9.6 % Low 20.0-40.0 [facility] Comment on above: Performed By: #### C BC, MG, GFR, ADIFF, BMP, ANEU #### [address] [address] Monocyte, Absolute 0.8 10 3/mcL Normal 0.1-1.4 [facility] Comment on above: Performed By: #### C BC, MG, GFR, ADIFF, BMP, ANEU #### [address] [address] Monocytes/100 WBC (Bld) 9.3 % Normal 2.0-13.0 [facility] Comment on above: Performed By: #### C BC, MG, GFR, ADIFF, BMP, ANEU #### [address] [address] Neutrophils/100 WBC (Bld) 80.1 % High 50.0-75.0 [facility] Comment on above: Performed By: #### C BC, MG, GFR, ADIFF, BMP, ANEU #### [address] [address] .GFRon 11-25-2024 Estimated Glomerular Filtration Rate 102 ml/min/1.73sqm Normal [facility] Comment on above: Result Comment: [...] BC, MG, GFR, ADIFF, BMP, ANEU #### [place] [address] .NEUABSon 11-25-2024 Neutrophil, Absolute 7.1 10 3/mcL Normal 2.3-8.1 [facility] Comment on above: Performed By: #### A DIFF, ANEU, BMP, CBC, GFR #### [place] [address] BCIDon 11-25-2024 Acinetobacter carol-baumanii complex Not detected Normal Not Detected [facility] Comment on above: Performed By: #### C BC, MG, GFR, ADIFF, BMP, ANEU #### [place] [address] Bacteroides fragilis Not detected Normal Not Detected [facility] Comment on above: Performed By: #### C BC, MG, GFR, ADIFF, BMP, ANEU #### [place] [address] BCID Comment See Comment Normal [facility] Comment on above: Result Comment: [...] BC, MG, GFR, ADIFF, BMP, ANEU #### [place] [address] Moiz albicans Not detected Normal Not Detected [facility] Comment on above: Performed By: #### C BC, MG, GFR, ADIFF, BMP, ANEU #### [place] [address] Moiz auris Not detected Normal Not Detected [facility] Comment on above: Performed By: #### C BC, MG, GFR, ADIFF, BMP, ANEU #### [place] [address] Moiz glabrata Not detected Normal Not Detected [facility] Comment on above: Performed By: #### C BC, MG, GFR, ADIFF, BMP, ANEU #### [place] [address] Moiz krusei Not detected Normal Not Detected [facility] Comment on above: Performed By: #### C BC, MG, GFR, ADIFF, BMP, ANEU #### [place] [address] Moiz parapsilosis Not detected Normal Not Detected [facility] Comment on above: Performed By: #### C BC, MG, GFR, ADIFF, BMP, ANEU #### [place] [address] Moiz tropicalis Not detected Normal Not Detected [facility] Comment on above: Performed By: #### C BC, MG, GFR, ADIFF, BMP, ANEU #### [place] [address] Cryptococcus neoformans-gattii Not detected Normal Not Detected [facility] Comment on above: Performed By: #### C BC, MG, GFR, ADIFF, BMP, ANEU #### [place] [address] CTX-M (ESBL) Not Applicable Normal Not Detected [facility] Comment on above: Performed By: #### C BC, MG, GFR, ADIFF, BMP, ANEU #### [place] [address] E. Coli Not detected Normal Not Detected [facility] Comment on above: Performed By: #### C BC, MG, GFR, ADIFF, BMP, ANEU #### [place] [address] Enterobacter cloacae Complex Not detected Normal Not Detected [facility] Comment on above: Performed By: #### C BC, MG, GFR, ADIFF, BMP, ANEU #### [place] [address] Enterobacterales Not detected Normal Not Detected [facility] Comment on above: Performed By: #### C BC, MG, GFR, ADIFF, BMP, ANEU #### [place] [address] Enterococcus faecalis Not detected Normal Not Detected [facility] Comment on above: Performed By: #### C BC, MG, GFR, ADIFF, BMP, ANEU #### [place] [address] Enterococcus faecium Not detected Normal Not Detected [facility] Comment on above: Performed By: #### C BC, MG, GFR, ADIFF, BMP, ANEU #### [place] [address] Haemophilus influenzae Not detected Normal Not Detected [facility] Comment on above: Performed By: #### C BC, MG, GFR, ADIFF, BMP, ANEU #### [place] [address] IMP (Carbapenemase) Not Applicable Normal Not Detected [facility] Comment on above: Performed By: #### C BC, MG, GFR, ADIFF, BMP, ANEU #### [place] [address] Klebsiella aerogenes Not detected Normal Not Detected [facility] Comment on above: Performed By: #### C BC, MG, GFR, ADIFF, BMP, ANEU #### [place] [address] Klebsiella oxytoca Not detected Normal Not Detected [facility] Comment on above: Performed By: #### C BC, MG, GFR, ADIFF, BMP, ANEU #### [place] [address] Klebsiella pneumoniae group Not detected Normal Not Detected [facility] Comment on above: Performed By: #### C BC, MG, GFR, ADIFF, BMP, ANEU #### [place] [address] KPC (Carbapenemase) Not Applicable Normal Not Detected [facility] Comment on above: Performed By: #### C BC, MG, GFR, ADIFF, BMP, ANEU #### [place] [address] Listeria monocytogenes Not detected Normal Not Detected [facility] Comment on above: Performed By: #### C BC, MG, GFR, ADIFF, BMP, ANEU #### [place] [address] MCR-1 (Colistin Resistance) Not Applicable Normal Not Detected [facility] Comment on above: Performed By: #### C BC, MG, GFR, ADIFF, BMP, ANEU #### [place] [address] Mec A/C Not Applicable Normal Not Detected [facility] Comment on above: Performed By: #### C BC, MG, GFR, ADIFF, BMP, ANEU #### [place] [address] Mec A/C-MREJ (MRSA) Not detected Normal Not Detected [facility] Comment on above: Performed By: #### C BC, MG, GFR, ADIFF, BMP, ANEU #### [place] [address] NDM (Carbapenemase) Not Applicable Normal Not Detected [facility] Comment on above: Performed By: #### C BC, MG, GFR, ADIFF, BMP, ANEU #### [place] [address] Neisseria meningitidis (Encapsalated) Not detected Normal Not Detected [facility] Comment on above: Performed By: #### C BC, MG, GFR, ADIFF, BMP, ANEU #### [place] [address] OXA-48 like (Carbapenemase) Not Applicable Normal Not Detected [facility] Comment on above: Performed By: #### C BC, MG, GFR, ADIFF, BMP, ANEU #### [place] [address] Proteus Not detected Normal Not Detected [facility] Comment on above: Performed By: #### C BC, MG, GFR, ADIFF, BMP, ANEU #### [place] [address] Pseudomonas aeruginosa Not detected Normal Not Detected [facility] Comment on above: Performed By: #### C BC, MG, GFR, ADIFF, BMP, ANEU #### [place] [address] S. agalactiae Org specific cx Ql (Vag fld) Not detected Normal Not Detected [facility] Comment on above: Performed By: #### C BC, MG, GFR, ADIFF, BMP, ANEU #### [place] [address] Salmonella species Not detected Normal Not Detected [facility] Comment on above: Performed By: #### C BC, MG, GFR, ADIFF, BMP, ANEU #### [place] [address] Serratia marcescens Not detected Normal Not Detected [facility] Comment on above: Performed By: #### C BC, MG, GFR, ADIFF, BMP, ANEU #### [place] [address] Staphylococcus Detected Abnormal Not Detected [facility] Comment on above: Performed By: #### C BC, MG, GFR, ADIFF, BMP, ANEU #### [place] [address] Staphylococcus aureus Detected Abnormal Not Detected [facility] Comment on above: Result Comment: If S taphylococcus aureus is "Detected", an Infectious Disease physician consult is required on identification. Performed By: #### C BC, MG, GFR, ADIFF, BMP, ANEU #### [address] [address] Staphylococcus epidermidis Not detected Normal Not Detected [facility] Comment on above: Performed By: #### C BC, MG, GFR, ADIFF, BMP, ANEU #### [place] [address] Staphylococcus lugdunensis Not detected Normal Not Detected [facility] Comment on above: Performed By: #### C BC, MG, GFR, ADIFF, BMP, ANEU #### [place] [address] Stenotrophomonas maltophilia Not detected Normal Not Detected [facility] Comment on above: Performed By: #### C BC, MG, GFR, ADIFF, BMP, ANEU #### [place] [address] Streptococcus Not detected Normal Not Detected [facility] Comment on above: Performed By: #### C BC, MG, GFR, ADIFF, BMP, ANEU #### [place] [address] Streptococcus pneumoniae Not detected Normal Not Detected [facility] Comment on above: Performed By: #### C BC, MG, GFR, ADIFF, BMP, ANEU #### [place] [address] Streptococcus pyogenes Not detected Normal Not Detected [facility] Comment on above: Performed By: #### C BC, MG, GFR, ADIFF, BMP, ANEU #### [place] [address] Van A/B Not Applicable Normal Not Detected [facility] Comment on above: Performed By: #### C BC, MG, GFR, ADIFF, BMP, ANEU #### [place] [address] VIM (Carbapenemase) Not Applicable Normal Not Detected [facility] Comment on above: Performed By: #### C BC, MG, GFR, ADIFF, BMP, ANEU #### [place] [address] BMPon 11-25-2024 BUN/Creatinine Ratio 15.7 ratio Normal 10.0-22.0 [facility] Comment on above: Performed By: #### C BC, MG, GFR, ADIFF, BMP, ANEU #### [address] [address] Calcium [Mass/Vol] 9.1 mg/dL Normal 8.7-10.4 [facility] Comment on above: Performed By: #### C BC, MG, GFR, ADIFF, BMP, ANEU #### [address] [address] Chloride [Moles/Vol] 100 mmol/L Normal 98-110 [facility] Comment on above: Performed By: #### C BC, MG, GFR, ADIFF, BMP, ANEU #### [address] [address] CO2 [Moles/Vol] 24 mmol/L Normal 22-32 [facility] Comment on above: Performed By: #### C BC, MG, GFR, ADIFF, BMP, ANEU #### [place] [id number] Creatinine [Mass/Vol] 0.89 mg/dL Normal 0.60-1.40 [facility] Comment on above: Result Comment: Test ing performed on [employer] analyzer using enzymatic creatinine methodology. Performed By: #### C BC, MG, GFR, ADIFF, BMP, ANEU #### [place] [id number] Electrolyte Balance 12.0 mEq/L Normal 4.0-15.0 [facility] Comment on above: Performed By: #### C BC, MG, GFR, ADIFF, BMP, ANEU #### [place] [id number] Glucose [Mass/Vol] 108 mg/dL Normal 70-110 [facility] Comment on above: Performed By: #### C BC, MG, GFR, ADIFF, BMP, ANEU #### [place] [id number] Potassium [Moles/Vol] 3.8 mmol/L Normal 3.5-5.0 [facility] Comment on above: Performed By: #### C BC, MG, GFR, ADIFF, BMP, ANEU #### [place] [address] Sodium [Moles/Vol] 136 mmol/L Normal 136-145 [facility] Comment on above: Performed By: #### C BC, MG, GFR, ADIFF, BMP, ANEU #### [place] [address] Urea nitrogen [Mass/Vol] 14.0 mg/dL Normal 8.0-22.0 [facility] Comment on above: Performed By: #### C BC, MG, GFR, ADIFF, BMP, ANEU #### [place] [address] CBCon 11-25-2024 Erythrocyte distribution width (RBC) [Ratio] 15.3 % Normal 11.5-15.5 [facility] Comment on above: Order Comment: QNS Performed By: #### C BC, MG, GFR, ADIFF, BMP, ANEU #### [place] [address] Hematocrit (Bld) [Volume fraction] 44.6 % Normal 40.0-52.0 [facility] Comment on above: Order Comment: QNS Performed By: #### C BC, MG, GFR, ADIFF, BMP, ANEU #### [place] [address] Hgb 14.9 G/dL Normal 13.0-17.5 [facility] Comment on above: Order Comment: QNS Performed By: #### C BC, MG, GFR, ADIFF, BMP, ANEU #### [place] [address] MCH (RBC) [Entitic mass] 29.2 pg Normal 27.0-33.0 [facility] Comment on above: Order Comment: QNS Performed By: #### C BC, MG, GFR, ADIFF, BMP, ANEU #### [place] [address] MCHC 33.4 G/dL Normal 32.0-36.0 [facility] Comment on above: Order Comment: QNS Performed By: #### C BC, MG, GFR, ADIFF, BMP, ANEU #### [place] [address] MCV (RBC) [Entitic vol] 87.6 fL Normal 81.0-100.0 [facility] Comment on above: Order Comment: QNS Performed By: #### C BC, MG, GFR, ADIFF, BMP, ANEU #### [place] [address] Platelet 183 10 3/mcL Normal 150-450 [facility] Comment on above: Order Comment: QNS Performed By: #### C BC, MG, GFR, ADIFF, BMP, ANEU #### [place] [address] Platelet mean volume (Bld) [Entitic vol] 8.3 fL Normal 6.4-10.5 [facility] Comment on above: Order Comment: QNS Performed By: #### C BC, MG, GFR, ADIFF, BMP, ANEU #### [place] [address] RBC 5.08 10 6/mcL Normal 4.50-6.00 [facility] Comment on above: Order Comment: QNS Performed By: #### C BC, MG, GFR, ADIFF, BMP, ANEU #### [place] [address] WBC 8.9 10 3/mcL Normal 4.5-10.8 [facility] Comment on above: Order Comment: QNS Performed By: #### C BC, MG, GFR, ADIFF, BMP, ANEU #### [place] [address] LABORATORYOrdered By: SYSTEM SYSTEM on 11-25-2024 Basophils [...] above: Interpretive Data: T esting performed on [employer] analyzer using enzymatic creatinine methodology. Electrolyte Balance [...] 11-25-2024 Magnesium [Mass/Vol] 2.1 mg/dL Normal 1.6-2.4 [facility] Comment on above: Performed By: #### C BC, MG, GFR, ADIFF, BMP, ANEU #### [address] [address] No Panel Informationon 11-25 GSAER Gram Positive Cocci in [facility] Microscopic examination of blood, culture Culture has been received in lab and is no growth to date. Routine cultures are held for 5 days. [facility] Microscopic examination of blood, culture Staphylococcus coagulase negative Staphylococcus coagulase negative #2 Staphylococcus coagulase negative #3 Isolated from aerobe bottle only. 1 out of 2 sets positive Organism is a potential contaminant. Clinical Significance undetermined. Please contact Microbiology if further work-up is required. [facility] XR ANKLE MINIMUM [...] 11/25/2024 7:46:46 PM Ordering Provider: SUZE MISHRA [facility] XR ANKLE MINIMUM 3 [...] 11/25/2024 7:39:01 PM Ordering Provider: SUZE MISHRA [facility] XR TIBIA/FIBULA 2 VIEWS [facility] Ton 11-25-2024 XR TIBIA/FIBULA 2 VIEWS [...] 11/25/2024 7:42:39 PM Ordering Provider: ORI TOMLIN [facility] .Auto Diffon 11-24-2024 Basophil, Absolute 0.0 10 3/mcL Normal 0.0-0.3 [facility] Comment on above: Performed By: #### A DIFF, ANEU, BMP, CBC, GFR #### [address] [address] Basophils/100 WBC (Bld) 0.2 % Normal 0.0-2.5 [facility] Comment on above: Performed By: #### A DIFF, ANEU, BMP, CBC, GFR #### [address] [address] Eosinophil, Absolute 0.0 10 3/mcL Normal 0.0-0.7 [facility] Comment on above: Performed By: #### A DIFF, ANEU, BMP, CBC, GFR #### [address] [address] Eosinophils/100 WBC (Bld) 0.2 % Normal 0.0-6.0 [facility] Comment on above: Performed By: #### A DIFF, ANEU, BMP, CBC, GFR #### [address] [address] Lymphocyte, Absolute 1.2 10 3/mcL Normal 0.9-4.3 [facility] Comment on above: Performed By: #### A DIFF, ANEU, BMP, CBC, GFR #### [address] [address] Lymphocytes/100 WBC (Bld) 9.9 % Low 20.0-40.0 [facility] Comment on above: Performed By: #### A DIFF, ANEU, BMP, CBC, GFR #### [address] [address] Monocyte, Absolute 1.6 10 3/mcL High 0.1-1.4 [facility] Comment on above: Performed By: #### A DIFF, ANEU, BMP, CBC, GFR #### [address] [address] Monocytes/100 WBC (Bld) 12.6 % Normal 2.0-13.0 [facility] Comment on above: Performed By: #### A DIFF, ANEU, BMP, CBC, GFR #### [address] [address] Neutrophils/100 WBC (Bld) 77.1 % High 50.0-75.0 [facility] Comment on above: Performed By: #### A DIFF, ANEU, BMP, CBC, GFR #### [address] [address] Basophil, Absolute 0.1 10 3/mcL Normal 0.0-0.3 [facility] Comment on above: Performed By: #### A MD ERICW, BMP, MG, GFR, ADIFF, DIMER, CBC, PBNP, TROPHS #### [address] [address] Basophils/100 WBC (Bld) 0.4 % Normal 0.0-2.5 [facility] Comment on above: Performed By: #### A ELY REYES, BMP, MG, GFR, ADIFF, DIMER, CBC, PBNP, TROPHS #### [address] [address] Eosinophil, Absolute 0.0 10 3/mcL Normal 0.0-0.7 [facility] Comment on above: Performed By: #### A ELY REYES, BMP, MG, GFR, ADIFF, DIMER, CBC, PBNP, TROPHS #### [address] [address] Eosinophils/100 WBC (Bld) 0.1 % Normal 0.0-6.0 [facility] Comment on above: Performed By: #### A ELY REYES, BMP, MG, GFR, ADIFF, DIMER, CBC, PBNP, TROPHS #### [address] [address] Lymphocyte, Absolute 1.0 10 3/mcL Normal 0.9-4.3 [facility] Comment on above: Performed By: #### A ELY REYES, BMP, MG, GFR, ADIFF, DIMER, CBC, PBNP, TROPHS #### [address] [address] Lymphocytes/100 WBC (Bld) 5.8 % Low 20.0-40.0 [facility] Comment on above: Performed By: #### A MD ERICW, BMP, MG, GFR, ADIFF, DIMER, CBC, PBNP, TROPHS #### [address] [address] Monocyte, Absolute 1.9 10 3/mcL High 0.1-1.4 [facility] Comment on above: Performed By: #### A MD ERICW, BMP, MG, GFR, ADIFF, DIMER, CBC, PBNP, TROPHS #### [address] [address] Monocytes/100 WBC (Bld) 11.5 % Normal 2.0-13.0 [facility] Comment on above: Performed By: #### A MD ERICW, BMP, MG, GFR, ADIFF, DIMER, CBC, PBNP, TROPHS #### [address] [address] Neutrophils/100 WBC (Bld) 82.2 % High 50.0-75.0 [facility] Comment on above: Performed By: #### A MD ERICW, BMP, MG, GFR, ADIFF, DIMER, CBC, PBNP, TROPHS #### [address] [address] .GFRon 11-24-2024 Estimated Glomerular Filtration Rate 102 ml/min/1.73sqm Normal [facility] Comment on above: Result Comment: Stages [...] A DIFF, ANEU, BMP, CBC, GFR #### [address] [address] Estimated Glomerular Filtration Rate 93 ml/min/1.73sqm Normal [facility] Comment on above: Result Comment: Stages [...] GFR, ADIFF, DIMER, CBC, PBNP, TROPHS #### [address] [address] .MDWon 11-24-2024 Monocyte Distribution Width 19.29 Normal 0.00-20.00 [facility] Comment on above: Result Comment: For ED adult patients suspected of sepsis, MDW<=20.0 does not rule out sepsis or risk of sepsis Performed By: #### A ERIC, MDW, BMP, MG, GFR, ADIFF, DIMER, CBC, PBNP, TROPHS #### [address] [address] .NEUABSon 11-24-2024 Neutrophil, Absolute 9.7 10 3/mcL High 2.3-8.1 [facility] Comment on above: Performed By: #### A DIFF, ANEU, BMP, CBC, GFR #### [address] [address] Neutrophil, Absolute 13.6 10 3/mcL High 2.3-8.1 [facility] Comment on above: Performed By: #### A ERIC, MDW, BMP, MG, GFR, ADIFF, DIMER, CBC, PBNP, TROPHS #### [place] [address] [place], [place] [address] BMPon 11-24-2024 BUN/Creatinine Ratio 10.0 ratio Normal 10.0-22.0 [facility] Comment on above: Performed By: #### A DIFF, ANEU, BMP, CBC, GFR #### [address] [address] Calcium [Mass/Vol] 9.2 mg/dL Normal 8.7-10.4 [facility] Comment on above: Performed By: #### A DIFF, ANEU, BMP, CBC, GFR #### [address] [address] Chloride [Moles/Vol] 99 mmol/L Normal 98-110 [facility] Comment on above: Performed By: #### A DIFF, ANEU, BMP, CBC, GFR #### [address] [address] CO2 [Moles/Vol] 23 mmol/L Normal 22-32 [facility] Comment on above: Performed By: #### A DIFF, ANEU, BMP, CBC, GFR #### [address] [address] Creatinine [Mass/Vol] 0.90 mg/dL Normal 0.60-1.40 [facility] Comment on above: Result Comment: Test ing performed on [employer] analyzer using enzymatic creatinine methodology. Performed By: #### A DIFF, ANEU, BMP, CBC, GFR #### [address] [address] Electrolyte Balance 12.0 mEq/L Normal 4.0-15.0 [facility] Comment on above: Performed By: #### A DIFF, ANEU, BMP, CBC, GFR #### [address] [address] Glucose [Mass/Vol] 109 mg/dL Normal 70-110 [facility] Comment on above: Performed By: #### A DIFF, ANEU, BMP, CBC, GFR #### [address] [address] Potassium [Moles/Vol] 4.1 mmol/L Normal 3.5-5.0 [facility] Comment on above: Performed By: #### A DIFF, ANEU, BMP, CBC, GFR #### [address] [address] Sodium [Moles/Vol] 134 mmol/L Low 136-145 [facility] Comment on above: Performed By: #### A DIFF, ANEU, BMP, CBC, GFR #### [address] [address] Urea nitrogen [Mass/Vol] 9.0 mg/dL Normal 8.0-22.0 [facility] Comment on above: Performed By: #### A DIFF, ANEU, BMP, CBC, GFR #### [address] [address] BUN/Creatinine Ratio 11 ratio Normal 7-27 [facility] Comment on above: Performed By: #### A ELY REYES, BMP, MG, GFR, ADIFF, DIMER, CBC, PBNP, TROPHS #### [address] [address] Calcium [Mass/Vol] 8.7 mg/dL Normal 8.4-10.2 [facility] Comment on above: Performed By: #### A ELY REYES, BMP, MG, GFR, ADIFF, DIMER, CBC, PBNP, TROPHS #### [address] [address] Chloride [Moles/Vol] 99 mmol/L Normal 98-107 [facility] Comment on above: Performed By: #### A ELY REYES, BMP, MG, GFR, ADIFF, DIMER, CBC, PBNP, TROPHS #### [address] [address] CO2 [Moles/Vol] 28 mmol/L Normal 22-29 [facility] Comment on above: Performed By: #### A ELY REYES, BMP, MG, GFR, ADIFF, DIMER, CBC, PBNP, TROPHS #### [address] [address] Creatinine [Mass/Vol] 0.97 mg/dL Normal 0.67-1.17 [facility] Comment on above: Performed By: #### A MD ERICW, BMP, MG, GFR, ADIFF, DIMER, CBC, PBNP, TROPHS #### [address] [address] Electrolyte Balance 6.0 mEq/L Normal 4.0-15.0 [facility] Comment on above: Performed By: #### A MD ERICW, BMP, MG, GFR, ADIFF, DIMER, CBC, PBNP, TROPHS #### [address] [address] Glucose [Mass/Vol] 130 mg/dL High 70-105 [facility] Comment on above: Performed By: #### A MD ERICW, BMP, MG, GFR, ADIFF, DIMER, CBC, PBNP, TROPHS #### [address] [address] Potassium [Moles/Vol] 4.9 mmol/L Normal 3.5-5.1 [facility] Comment on above: Performed By: #### A MD ERICW, BMP, MG, GFR, ADIFF, DIMER, CBC, PBNP, TROPHS #### [address] [address] Sodium [Moles/Vol] 133 mmol/L Low 136-145 [facility] Comment on above: Performed By: #### A MD ERICW, BMP, MG, GFR, ADIFF, DIMER, CBC, PBNP, TROPHS #### [address] [address] Urea nitrogen [Mass/Vol] 11 mg/dL Normal 7-18 [facility] Comment on above: Performed By: #### A MD ERICW, BMP, MG, GFR, ADIFF, DIMER, CBC, PBNP, TROPHS #### [address] [address] CBCon 11-24-2024 Erythrocyte distribution width (RBC) [Ratio] 15.1 % Normal 11.5-15.5 [facility] Comment on above: Performed By: #### A DIFF, ANEU, BMP, CBC, GFR #### [place] [address] Hematocrit (Bld) [Volume fraction] 48.7 % Normal 40.0-52.0 [facility] Comment on above: Performed By: #### A DIFF, ANEU, BMP, CBC, GFR #### [place] [address] Hgb 15.7 G/dL Normal 13.0-17.5 [facility] Comment on above: Performed By: #### A DIFF, ANEU, BMP, CBC, GFR #### [place] [address] MCH (RBC) [Entitic mass] 28.3 pg Normal 27.0-33.0 [facility] Comment on above: Performed By: #### A DIFF, ANEU, BMP, CBC, GFR #### [place] [address] MCHC 32.3 G/dL Normal 32.0-36.0 [facility] Comment on above: Performed By: #### A DIFF, ANEU, BMP, CBC, GFR #### [place] [address] MCV (RBC) [Entitic vol] 87.7 fL Normal 81.0-100.0 [facility] Comment on above: Performed By: #### A DIFF, ANEU, BMP, CBC, GFR #### [place] [address] Platelet 190 10 3/mcL Normal 150-450 [facility] Comment on above: Performed By: #### A DIFF, ANEU, BMP, CBC, GFR #### [place] [address] Platelet mean volume (Bld) [Entitic vol] 8.0 fL Normal 6.4-10.5 [facility] Comment on above: Performed By: #### A DIFF, ANEU, BMP, CBC, GFR #### [place] [address] RBC 5.56 10 6/mcL Normal 4.50-6.00 [facility] Comment on above: Performed By: #### A DIFF, ANEU, BMP, CBC, GFR #### [address] [address] WBC 12.6 10 3/mcL High 4.5-10.8 [facility] Comment on above: Performed By: #### A DIFF, ANEU, BMP, CBC, GFR #### [address] [address] Erythrocyte distribution width (RBC) [Ratio] 15.5 % Normal 11.5-15.5 [facility] Comment on above: Performed By: #### A ERICMDW, BMP, MG, GFR, ADIFF, DIMER, CBC, PBNP, TROPHS #### [place] [id number] Hematocrit (Bld) [Volume fraction] 46.6 % Normal 40.0-52.0 [facility] Comment on above: Performed By: #### A MD ERICW, BMP, MG, GFR, ADIFF, DIMER, CBC, PBNP, TROPHS #### [address] [address] Hgb 15.4 G/dL Normal 13.0-17.5 [facility] Comment on above: Performed By: #### A MD ERICW, BMP, MG, GFR, ADIFF, DIMER, CBC, PBNP, TROPHS #### [address] [address] MCH (RBC) [Entitic mass] 28.8 pg Normal 27.0-33.0 [facility] Comment on above: Performed By: #### A MD ERICW, BMP, MG, GFR, ADIFF, DIMER, CBC, PBNP, TROPHS #### [address] [address] MCHC 33.0 G/dL Normal 32.0-36.0 [facility] Comment on above: Performed By: #### A MD ERICW, BMP, MG, GFR, ADIFF, DIMER, CBC, PBNP, TROPHS #### [address] [address] MCV (RBC) [Entitic vol] 87.4 fL Normal 81.0-100.0 [facility] Comment on above: Performed By: #### A ELY REYES, BMP, MG, GFR, ADIFF, DIMER, CBC, PBNP, TROPHS #### [address] [address] Platelet 240 10 3/mcL Normal 150-450 [facility] Comment on above: Performed By: #### A ELY REYES, BMP, MG, GFR, ADIFF, DIMER, CBC, PBNP, TROPHS #### [place] [address] Platelet mean volume (Bld) [Entitic vol] 7.8 fL Normal 6.4-10.5 [facility] Comment on above: Performed By: #### A ELY REYES, BMP, MG, GFR, ADIFF, DIMER, CBC, PBNP, TROPHS #### [place] [address] RBC 5.34 10 6/mcL Normal 4.50-6.00 [facility] Comment on above: Performed By: #### A ELY REYES, BMP, MG, GFR, ADIFF, DIMER, CBC, PBNP, TROPHS #### [place] [phone] WBC 16.6 10 3/mcL High 4.5-10.8 [facility] Comment on above: Performed By: #### A ELY REYES, BMP, MG, GFR, ADIFF, DIMER, CBC, PBNP, TROPHS #### [address] [address] [address] ANGIOGRAPHY CHEST W/CONTR [place] 11-24-2024 CT [...] 11/24/2024 6:01:11 AM Ordering Provider: CIRILO PATEL [facility] CT HEAD OR BRAIN W/O [...] 5:55:14 AM Ordering Provider: CIRILO PATEL Normal [facility] DIMERon 11-24-2024 D-Dimer 564 ng/mL D-DU High 0-230 [facility] Comment on above: Result Comment: Spec [...] ADIFF, DIMER, CBC, PBNP, TROPHS #### [place] [address] LABORATORYOrdered By: SYSTEM SYSTEM on 11-24-2024 Lactate [...] ng/L Male: 0-54 ng/L Testing performed on [employer] IM analyzer using direct chemiluminescent technology. TSH [...] ng/L Male: 0-76 ng/L Testing performed on [employer] using a homogeneous sandwich chemiluminescent immunoassay based on [employer] technology. Urea nitrogen [Mass/Vol] 11 mg/dL Normal [...] Lactic Acid Lvl 1.0 mmol/L Normal 0.5-2.2 [facility] Comment on above: Performed By: #### A DIFF, ANEU, BMP, CBC, GFR #### [facility] [address] [place] [address] Lactic Acid Lvl 0.4 mmol/L Normal 0.4-2.0 [facility] Comment on above: Order Comment: order ed secondary to Sepsis Alert Performed By: #### A ELY REYES, BMP, MG, GFR, ADIFF, DIMER, CBC, PBNP, TROPHS #### [place] [id number] [place], [place] [address] MGon 11-24-2024 Magnesium [Mass/Vol] 2.3 mg/dL Normal 1.6-2.4 [facility] Comment on above: Performed By: #### A DIFF, ANEU, BMP, CBC, GFR #### [address] [address] Magnesium [Mass/Vol] 1.6 mg/dL Low 1.8-2.4 [facility] Comment on above: Performed By: #### A ELY REYES, BMP, MG, GFR, ADIFF, DIMER, CBC, PBNP, TROPHS #### [address] [address] No Panel Informationon 11-24 Microscopic examination of blood, culture Culture has been received in lab and is no growth to date. Routine cultures are held for 5 days. [facility] PBNPon 11-24-2024 Natriuretic peptide B (Bld) [Mass/Vol] 4325 pg/mL High 0-900 [facility] Comment on above: Performed By: #### A DIFF, ANEU, BMP, CBC, GFR #### [facility] [address] [place] [address] Natriuretic peptide B (Bld) [Mass/Vol] 5358 pg/mL High 0-125 [facility] Comment on above: Result Comment: NT-p roBNP results of less than 300 pg/mL effectively rules out acute congestive heart failure with 99% negative predictive value. Performed By: #### A ELY REYES, BMP, MG, GFR, ADIFF, DIMER, CBC, PBNP, TROPHS #### [address] [address] [facility] 11-24-2024 High Sensitivity Troponin I 8 ng/L Normal 0-54 [facility] Comment on above: Result Comment: High Sensitive Troponin I Reference Ranges: Female: 0-34 ng/L Male: 0-54 ng/L Testing performed on [employer] analyzer using direct chemiluminescent technology. Performed By: #### A DIFF, ANEU, BMP, CBC, GFR #### [address] [address] High Sensitivity Troponin I 19 ng/L Normal 0-76 [facility] Comment on above: Result Comment: High Sensitive Troponin I Reference Ranges: Female: 0-51 ng/L Male: 0-76 ng/L Testing performed on [employer] using a homogeneous sandwich chemiluminescent immunoassay based on [employer] technology. Performed By: #### A ELY REYES, JULIÁN, MG, GFR, ADIFF, DIMER, CBC, PBNP, TROPHS #### [address] [address] [facility] 11-24-2024 TSH 0.855 mIU/mL Normal 0.550-4.780 [facility] Comment on above: Performed By: #### A DIFF, ANEU, BMP, CBC, GFR #### [address] [address] XR CHEST 1 VIEWon 11-24-2024 XR CHEST [...] 11/24/2024 2:03:25 PM Ordering Provider: KARLENE BARCENAS [facility] Anion gap in Serum or Plasma Ordered By: Dolly Marino on 11-06-2024 Anion gap [Moles/Vol] 9 mmol/L 10-10 [facility] BUN/creatinine ratioOrdered By: Dolly Marino on 11-06-2024 Urea nitrogen/Creatinine [Mass ratio] 14.9 mg/mg 03-17 [facility] Basic Metabolic Profile (BMP )on 11-06-2024 BUN/CRE 14.9 RATIO Normal 03-17 [facility] Comment on above: Order Comment: 210 Performed By: #### L 500.4100, L501.9985 #### [facility] [address] [place], [address] Calcium [Mass/Vol] 9.2 mg/dL Normal 7.6-11.0 [facility] Comment on above: Order Comment: 210 Performed By: #### L 500.4100, L501.9985 #### [facility] [address] [place], [address] Chloride [Moles/Vol] 100 mmol/L Normal 98-108 [facility] Comment on above: Order Comment: 210 Performed By: #### L 500.4100, L501.9985 #### [facility] [address] [place], [address] CO2 [Moles/Vol] 27.9 mmol/L Normal 21.0-32.0 [facility] Comment on above: Order Comment: 210 Performed By: #### L 500.4100, L501.9985 #### [facility] [address] [place], [address] Creatinine [Mass/Vol] 0.87 mg/dL Normal 0.70-1.20 [facility] Comment on above: Order Comment: 210 Performed By: #### L 500.4100, L501.9985 #### [facility] [address] [place], [address] GAP 9 Normal 5-15 [facility] Comment on above: Order Comment: 210 Performed By: #### L 500.4100, L501.9985 #### [facility] [address] [place], [address] GFR/1.73 sq M.predicted among non-blacks MDRD (S/P/Bld) [Vol rate/Area] 103 mL/min/{1.73_m2} Normal >60 [facility] Comment on above: Order Comment: 210 Result Comment: mL/m in/1.73m2 CKD-EPI Creatinine Equation (2020) Performed By: #### L 500.4100, L501.9985 #### [facility] [address] [place], [address] Glucose [Mass/Vol] 104 mg/dL High 70-99 [facility] Comment on above: Order Comment: 210 Performed By: #### L 500.4100, L501.9985 #### [facility] [address] [place], [address] Potassium [Moles/Vol] 4.4 mmol/L Normal 3.3-5.1 [facility] Comment on above: Order Comment: 210 Performed By: #### L 500.4100, L501.9985 #### [facility] [address] [place], [address] Sodium [Moles/Vol] 136 mmol/L Normal 133-145 [facility] Comment on above: Order Comment: 210 Performed By: #### L 500.4100, L501.9985 #### [facility] [address] [place], [place], [address] Urea nitrogen [Mass/Vol] 13 mg/dL Normal 4-19 [facility] Comment on above: Order Comment: 210 Performed By: #### L 500.4100, L501.9985 #### [facility] [address] [place], [place], [address] Carbon dioxide, total [Moles /volume] in Central venous bloodOrdered By: Dolly Marino on 11-06-2024 CO2 [Moles/Vol] 27.9 mmol/L 21.0-32.0 [facility] Chloride assayOrdered By: Darrin Marino on 11-06-2024 Chloride [Moles/Vol] 100 mmol/L 98-108 [facility] Glomerular filtration rate ( GFR) estimation/1.73 sq m using serum, plasma, or whole bOrdered By: Dolly Marino on 11-06-2024 GFR/1.73 sq M.predicted among non-blacks MDRD (S/P/Bld) [Vol rate/Area] 103 mL/min/{1.73_m2} >60 [facility] Comment on above: mL/min/1.73m2 CKD-EP I Creatinine Equation (2020) Potassium measurement (mass/ volume)Ordered By: Dolly Marino on 11-06-2024 Potassium (Unsp spec) [Mass/Vol] 4.4 mmol/L 3.3-5.1 [facility] Serum creatinine measurement (mass/volume)Ordered By: Dolly Marino on 11-06-2024 Creatinine [Mass/Vol] 0.87 mg/dL 0.70-1.20 [facility] Serum glucose measurement (m ass/volume)Ordered By: Dolly Marino on 11-06-2024 Glucose [Mass/Vol] 104 mg/dL High 70-99 [facility] Serum or plasma calcium scott urement (mass/volume)Ordered By: Dolly Marino on 11-06-2024 Calcium [Mass/Vol] 9.2 mg/dL 7.6-11.0 [facility] Serum or plasma urea nitroge n measurement (mass/volume)Ordered By: Dolly Marino on 11-06-2024 Urea nitrogen [Mass/Vol] 13 mg/dL 4-19 [facility] Sodium levelOrdered By: Missael Marino on 11-06-2024 Sodium [Moles/Vol] 136 mmol/L 133-145 [facility] Absolute lymphocyte countOrd ered By: Dolly Marino on 11-04-2024 Lymphocytes Auto (Unsp spec) [#/Vol] 1.05 10*3/uL 0.83-4.51 [facility] Absolute neutrophil countOrd ered By: Dolly Marino on 11-04-2024 Neutrophils (Bld) [#/Vol] 2.8 10*3/uL 2.0-7.7 [facility] Anion gap in Serum or Plasma Ordered By: Dolly Marino on 11-04-2024 Anion gap [Moles/Vol] 10 mmol/L 5-15 [facility] Automated lymphocyte count a s percentage of total leukocytesOrdered By: Dolly Marino on 11-04-2024 Lymphocytes/100 WBC Auto (Unsp spec) 23.5 % 19-41 [facility] BUN/creatinine ratioOrdered By: Dolly Marino on 11-04-2024 Urea nitrogen/Creatinine [Mass ratio] 12.7 mg/mg 10- [facility] Basic Metabolic Profile (BMP )on 11-04-2024 BUN/CRE 12.7 RATIO Normal - [facility] Comment on above: Order Comment: 210.1 Performed By: #### L 500.4100, L501.9985 #### [facility] [address] [place], [address] Calcium [Mass/Vol] 9.0 mg/dL Normal 7.6-11.0 [facility] Comment on above: Order Comment: 210.1 Performed By: #### L 500.4100, L501.9985 #### [facility] [address] [place], [address] Chloride [Moles/Vol] 101 mmol/L Normal 98-108 [facility] Comment on above: Order Comment: 210.1 Performed By: #### L 500.4100, L501.9985 #### [facility] [address] [place], [address] CO2 [Moles/Vol] 28.1 mmol/L Normal 21.0-32.0 [facility] Comment on above: Order Comment: 210.1 Performed By: #### L 500.4100, L501.9985 #### [facility] [address] [place], [address] Creatinine [Mass/Vol] 0.80 mg/dL Normal 0.70-1.20 [facility] Comment on above: Order Comment: 210.1 Performed By: #### L 500.4100, L501.9985 #### [facility] [address] [place], [address] GAP 10 Normal 5-15 [facility] Comment on above: Order Comment: 210.1 Performed By: #### L 500.4100, L501.9985 #### [facility] [address] [place], [address] GFR/1.73 sq M.predicted among non-blacks MDRD (S/P/Bld) [Vol rate/Area] 106 mL/min/{1.73_m2} Normal >60 [facility] Comment on above: Order Comment: 210.1 Result Comment: mL/m in/1.73m2 CKD-EPI Creatinine Equation (2020) Performed By: #### L 500.4100, L501.9985 #### [facility] [address] [place], [address] Glucose [Mass/Vol] 96 mg/dL Normal 70-99 [facility] Comment on above: Order Comment: 210.1 Performed By: #### L 500.4100, [id number] #### [facility] [address] [place], [address] Potassium [Moles/Vol] 4.2 mmol/L Normal 3.3-5.1 [facility] Comment on above: Order Comment: 210. Result Comment: Hemo lysis present, Results??could be affected. ?? Performed By: #### L 500.4100, L501.9985 #### [facility] [address] [place], [address] Sodium [Moles/Vol] 139 mmol/L Normal 133-145 [facility] Comment on above: Order Comment: . Performed By: #### L 500.4100, [id number] #### [facility] [address] [place], [address] Urea nitrogen [Mass/Vol] 10 mg/dL Normal 4-19 [facility] Comment on above: Order Comment: . Performed By: #### L 500.4100, L501.9985 #### [facility] [address] [place], [address] Basophil percentageOrdered B y: Dolly Marino on 11-04-2024 Basophils/100 WBC (Bld) 0.9 % 0-1 [facility] CBC W/Diff, Automatedon 06-0 Absolute Lymph 1.05 X10 3/uL Normal 0.83-4.51 [facility] Comment on above: Order Comment: . Performed By: #### L 500.4100, L501.9985 #### [facility] [address] [place], [address] Absolute Neut 2.8 X10 3/uL Normal 2.0-7.7 [facility] Comment on above: Order Comment: 210. Performed By: #### L 500.4100, L501.9985 #### [facility] [address] [place], [address] Basophils/100 WBC (Bld) 0.9 % Normal 0-1 [facility] Comment on above: Order Comment: 210.1 Performed By: #### L 500.4100, [id number] #### [facility] [address] [place], [address] Eosinophils/100 WBC (Bld) 1.6 % Normal 0-5 [facility] Comment on above: Order Comment: 210.1 Performed By: #### L 500.4100, L501.9985 #### [facility] [address] [place], [address] Erythrocyte distribution width (RBC) [Ratio] 15.8 % High 11.6-14.6 [facility] Comment on above: Order Comment: 210.1 Performed By: #### L 500.4100, L501.9985 #### [facility] [address] [place], [address] Hematocrit (Bld) [Volume fraction] 41.8 % Normal 40-54 [facility] Comment on above: Order Comment: 210.1 Performed By: #### L 500.4100, L501.9985 #### [facility] [address] [place], [address] Hemoglobin (Bld) [Mass/Vol] 13.1 g/dL Normal 13.0-16.5 [facility] Comment on above: Order Comment: 210.1 Performed By: #### L 500.4100, L501.9985 #### [facility] [address] [place], [address] IG% 0.400 Normal 0.0-0.9 [facility] Comment on above: Order Comment: 210.1 Result Comment: IG% - Immature Granulocytes (promyelocytes, myelocytes and metamyelocytes) > 1% indicates that a LEFT SHIFT is Present. Performed By: #### L 500.4100, L501.9985 #### [facility] [address] [place], [address] Lymphocytes/100 WBC (Bld) 23.5 % Normal 19-41 [facility] Comment on above: Order Comment: 210.1 Performed By: #### L 500.4100, L501.9985 #### [facility] [address] [place], [address] MCH (RBC) [Entitic mass] 28.6 pg Normal 27.0-32.0 [facility] Comment on above: Order Comment: 210.1 Performed By: #### L 500.4100, L501.9985 #### [facility] [address] [place], [address] MCHC (RBC) [Mass/Vol] 31.3 g/dL Low 32-36 [facility] Comment on above: Order Comment: 210.1 Performed By: #### L 500.4100, L501.9985 #### [facility] [address] [place], [address] MCV (RBC) [Entitic vol] 91.3 fL Normal 80-94 [facility] Comment on above: Order Comment: 210.1 Performed By: #### L 500.4100, L501.9985 #### [facility] [address] [place], [address] Monocytes/100 WBC (Bld) 11.4 % High 0-10 [facility] Comment on above: Order Comment: 210.1 Performed By: #### L 500.4100, L501.9985 #### [facility] [address] [place], [address] Neutrophils/100 WBC (Bld) 62.2 % Normal 47-70 [facility] Comment on above: Order Comment: 210.1 Performed By: #### L 500.4100, L501.9985 #### [facility] [address] [place], [address] Nucleated RBC (Bld) [#/Vol] 0 10*3/uL Normal 0-5 [facility] Comment on above: Order Comment: 210.1 Performed By: #### L 500.4100, L501.9985 #### [facility] [address] [place], [address] Platelet mean volume (Bld) [Entitic vol] 9.7 fL Normal 6.2-12.0 [facility] Comment on above: Order Comment: 210.1 Performed By: #### L 500.4100, L501.9985 #### [facility] [address] [place], [address] Platelets (Bld) [#/Vol] 185 10*3/uL Normal 150-450 [facility] Comment on above: Order Comment: 210.1 Performed By: #### L 500.4100, L501.9985 #### [facility] [address] [place], [address] RBC (Bld) [#/Vol] 4.58 10*6/uL Low 4.6-6.2 [facility] Comment on above: Order Comment: 210.1 Performed By: #### L 500.4100, L501.9985 #### [facility] [address] [place], [address] RDW SD 53.2 fl High 35.1-43.9 [facility] Comment on above: Order Comment: 210.1 Performed By: #### L 500.4100, L501.9985 #### [facility] [address] [place], [address] WBC (Bld) [#/Vol] 4.5 10*3/uL Normal 4.4-11.0 [facility] Comment on above: Order Comment: 210.1 Performed By: #### L 500.4100, L501.9985 #### [facility] [address] [place], [address] Carbon dioxide, total [Moles /volume] in Central venous bloodOrdered By: Dolly Marino on 11-04-2024 CO2 [Moles/Vol] 28.1 mmol/L 21.0-32.0 [facility] Chloride assayOrdered By: Darrin Marino on 11-04-2024 Chloride [Moles/Vol] 101 mmol/L 98-108 [facility] Eosinophil percentageOrdered By: Dolly Marino on 11-04-2024 Eosinophils/100 WBC (Bld) 1.6 % 0-5 [facility] Erythrocyte distribution wid th ratioOrdered By: Dolly Marino on 11-04-2024 Erythrocyte distribution width (RBC) [Ratio] 15.8 % High 11.6-14.6 [facility] Erythrocyte distribution wid th standard deviationOrdered By: Dolly Marino on 11-04-2024 Erythrocyte distribution width (RBC) [Ratio] 53.2 fl High 35.1-43.9 [facility] Glomerular filtration rate ( GFR) estimation/1.73 sq m using serum, plasma, or whole bOrdered By: Dolly Marino on 11-04-2024 GFR/1.73 sq M.predicted among non-blacks MDRD (S/P/Bld) [Vol rate/Area] 106 mL/min/{1.73_m2} >60 [facility] Comment on above: mL/min/1.73m2 CKD-EP I Creatinine Equation (2020) Hematocrit Auto (Bld) [Volum e fraction]Ordered By: Dolly Marino on 11-04-2024 Hematocrit (Bld) [Volume fraction] 41.8 % 40-54 [facility] Hemoglobin measurementOrdere d By: Dolly Marino on 11-04-2024 Hemoglobin (Bld) [Mass/Vol] 13.1 g/dL 13.0-16.5 [facility] Immature granulocytes/100 WB C Auto (Bld)Ordered By: Dolly Marino on 11-04-2024 Immature granulocytes/100 WBC (Bld) 0.400 % 0.0-0.9 [facility] Comment on above: IG% - Immature Granu locytes (promyelocytes, myelocytes and metamyelocytes) > 1% indicates that a LEFT SHIFT is Present. MCV (mean corpuscular volume ) determinationOrdered By: Dolly Marino on 11-04-2024 MCV (RBC) [Entitic vol] 91.3 fL 80-94 [facility] Magnesiumon 11-04-2024 Magnesium [Mass/Vol] 2.2 mg/dL Normal 1.5-2.2 [facility] Comment on above: Order Comment: 210.1 Performed By: #### L 500.4100, L501.9985 #### [facility] [address] [place], [place], [address] Magnesium measurement (mass/ volume)Ordered By: Dolly Marino on 11-04-2024 Magnesium (Unsp spec) [Mass/Vol] 2.2 mg/dL 1.5-2.2 [facility] Mean corpuscular hemoglobin (MCH) determinationOrdered By: Dolly Marino on 11-04-2024 MCH (RBC) [Entitic mass] 28.6 pg 27.0-32.0 [facility] Mean corpuscular hemoglobin concentration (MCHC) determinationOrdered By: Dolly Marino on 11-04-2024 MCHC (RBC) [Mass/Vol] 31.3 g/dL Low 32-36 [facility] Mean platelet volume determi nationOrdered By: Dolly Marino on 11-04-2024 Platelet mean volume (Bld) [Entitic vol] 9.7 fL 6.2-12.0 [facility] Monocyte percentageOrdered B y: Dolly Marino on 11-04-2024 Monocytes/100 WBC (Bld) 11.4 % High 0-10 [facility] Neutrophil percentageOrdered By: Dolly Marino on 11-04-2024 Neutrophils/100 WBC (Bld) 62.2 % 47-70 [facility] Nucleated red blood cell per centageOrdered By: Dolly Marino on 11-04-2024 Nucleated RBC/100 WBC (Bld) [Ratio] 0 % 0-5 [facility] Platelet countOrdered By: Darrin Marino on 11-04-2024 Platelets (Bld) [#/Vol] 185 10*3/uL 150-450 [facility] Potassium measurement (mass/ volume)Ordered By: Dolly Marino on 11-04-2024 Potassium (Unsp spec) [Mass/Vol] 4.2 mmol/L 3.3-5.1 [facility] Comment on above: Hemolysis present, R esults could be affected. RBC Auto (Bld) [#/Vol]Ordere d By: Dolly Marino on 11-04-2024 RBC (Bld) [#/Vol] 4.58 10*6/uL Low 4.6-6.2 [facility] Serum creatinine measurement (mass/volume)Ordered By: Dolly Marino on 11-04-2024 Creatinine [Mass/Vol] 0.80 mg/dL 0.70-1.20 [facility] Serum glucose measurement (m ass/volume)Ordered By: Dolly Marino on 11-04-2024 Glucose [Mass/Vol] 96 mg/dL 70-99 [facility] Serum or plasma calcium scott urement (mass/volume)Ordered By: Dolly Marino on 11-04-2024 Calcium [Mass/Vol] 9.0 mg/dL 7.6-11.0 [facility] Serum or plasma urea nitroge n measurement (mass/volume)Ordered By: Dolly Marino on 11-04-2024 Urea nitrogen [Mass/Vol] 10 mg/dL 4-19 [facility] Sodium levelOrdered By: Missael Marino on 11-04-2024 Sodium [Moles/Vol] 139 mmol/L 133-145 [facility] White blood cell (WBC) count Ordered By: Dolly Marino on 11-04-2024 WBC (Bld) [#/Vol] 4.5 10*3/uL 4.4-11.0 [facility] Calculated very low density lipoprotein (VLDL) cholesterol measurementOrdered By: Dolly Marino on 10-30-2024 Calculated very low density lipoprotein (VLDL) cholesterol measurement 26 mg/dL 5-40 [facility] Hemoglobin A1con 10-30-2024 HbA1c (Bld) [Mass fraction] 5.8 % High <=5.6 [facility] Comment on above: Result Comment: Norm al < 5.7 % Prediabetic 5.7 - 6.4 % Diabetic >or= 6.5 % Please note range changes. Performed By: #### L 500.4100, L501.9985 #### [facility] [address] [place], [place], [id number] Hemoglobin A1c percentageOrd ered By: Dolly Marino on 10-30-2024 HbA1c (Bld) [Mass fraction] 5.8 % High <5.7 [facility] Comment on above: Normal < 5.7 % Predi abetic 5.7 - 6.4 % Diabetic >or= 6.5 % Please note range changes. LDL calc ser/plasOrdered By: Dolly Marino on 10-30-2024 Cholesterol in LDL [Mass/Vol] 34 mg/dL [facility] Comment on above: Oamqdlayoc=215-245 m g/dL & Higher Rrbw=191 mg/dL or greater Lipid Profileon 10-30-2024 CHOL:HDL 3.64 Normal [facility] Comment on above: Performed By: #### L 500.4100, L501.9985 #### [facility] [address] [place], [address] Cholesterol [Mass/Vol] 83 mg/dL Normal <=200 [facility] Comment on above: Result Comment: Chol esterol level, Desirable <200 mg/dL Borderline high cholesterol 200-239 mg/dL High cholesterol >=240 mg/dL Recommendations of the NCEP Adult Treatment Panel for the following risk-cutoff thresholds for the [place] population. Performed By: #### L 500.4100, L501.9985 #### [facility] [address] [place], [place], [id number] Cholesterol in HDL [Mass/Vol] 23 mg/dL Low [facility] Comment on above: Result Comment: Fern onal Cholesterol Education Program (NCEP) guidelines: <40 mg/dL: Low HDL-cholesterol (major risk factor for CHD) >= 60 mg/dL: High HDL-cholesterol (negative risk factor for CHD) HDL-cholesterol is affected by a number of factors, e.g. smoking, exercise, hormones, sex and age. Performed By: #### L 500.4100, L501.9985 #### [facility] [address] [place], [address] Cholesterol in LDL [Mass/Vol] 34 mg/dL Normal [facility] Comment on above: Result Comment: Bord zeappi=970-457 mg/dL Higher Vyak=518 mg/dL or greater Performed By: #### L 500.4100, L501.9985 #### [facility] [address] [place], [address] Cholesterol in VLDL [Mass/Vol] 26 mg/dL Normal 5-40 [facility] Comment on above: Performed By: #### L 500.4100, L501.9985 #### [facility] [address] [place], [address] Triglyceride [Mass/Vol] 129 mg/dL Normal [facility] Comment on above: Result Comment: The drugs N-Acetylcysteine and Metamizole may falsely depress this assay. Normal range: <150 mg/dL Borderline High: 150-199 mg/dL High: 200-499 mg/dL Very High: >500 mg/dL Performed By: #### L 500.4100, L501.9985 #### [facility] [address] [place], [address] Screening total cholesterol/ high density lipoprotein (HDL) cholesterol ratioOrdered By: Dolly Marino on 10-30-2024 Cholesterol.total/Chio sterol in HDL [Mass ratio] 3.64 {ratio} [facility] Serum or plasma cholesterol in HDL measurement (mass/volume)Ordered By: Dolly Marino on 10-30-2024 Cholesterol in HDL [Mass/Vol] 23 mg/dL Low >40 [facility] Comment on above: National Cholesterol Education Program (NCEP) guidelines:<40 mg/dL: Low HDL-cholesterol (major risk factor for CHD)>= 60 mg/dL: High HDL-cholesterol (negative risk factor for CHD)HDL-cholesterol is affected by a number of factors, e.g. smoking, exercise, hormones, sex and age. Serum or plasma cholesterol measurement (mass/volume)Ordered By: Dolly Marino on 10-30-2024 Cholesterol [Mass/Vol] 83 mg/dL <201 [facility] Comment on above: Cholesterol level, D esirable <200 mg/dLBorderline high cholesterol 200-239 mg/dLHigh cholesterol >=240 mg/dLRecommendations of the NCEP Adult Treatment Panel for the following risk-cutoff thresholds for the [place] population. Triglycerides measurementOrd ered By: Dolly Marino on 10-30-2024 Triglyceride [Mass/Vol] 129 mg/dL <199 [facility] Comment on above: The drugs N-Acetylcy steine and Metamizole may falsely depress this assay. Normal range: <150 mg/dLBorderline High: 150-199 mg/dLHigh: 200-499 mg/dLVery High: >500 mg/dL Absolute lymphocyte countOrd ered By: Dolly Marino on 10-28-2024 Lymphocytes Auto (Unsp spec) [#/Vol] 1.07 10*3/uL 0.83-4.51 [facility] Absolute neutrophil countOrd ered By: Dolly Marino on 10-28-2024 Neutrophils (Bld) [#/Vol] 2.8 10*3/uL 2.0-7.7 [facility] Anion gap in Serum or Plasma Ordered By: Dolly Marino on 10-28-2024 Anion gap [Moles/Vol] 10 mmol/L 5-15 [facility] Automated blood erythrocyte countOrdered By: Dolly Marino on 10-28-2024 RBC (Bld) [#/Vol] 4.52 10*6/uL Low 4.6-6.2 [facility] Comment on above: Order Comment: 210 Performed By: #### L 100.0100, L500.2500, L501.9520, L501.5200, L506.1001, L500.4100, L501.1400 #### [facility] [address] [place], [place], [id number] Automated blood hematocrit ( percentage)Ordered By: Dolly Marino on 10-28-2024 Hematocrit (Bld) [Volume fraction] 41.2 % 40-54 [facility] Comment on above: Order Comment: 210 Performed By: #### L 100.0100, L500.2500, L501.9520, L501.5200, L506.1001, L500.4100, L501.1400 #### [facility] [address] [place], [place], [id number] Automated lymphocyte count a s percentage of total leukocytesOrdered By: Dolly Marino on 10-28-2024 Lymphocytes/100 WBC Auto (Unsp spec) 24.0 % 19-41 [facility] BUN/creatinine ratioOrdered By: Dolly Marino on 10-28-2024 Urea nitrogen/Creatinine [Mass ratio] 13.8 mg/mg 10-20 [facility] Basic Metabolic Profile (BMP )on 10-28-2024 BUN/CRE 13.8 RATIO Normal -20 [facility] Comment on above: Order Comment: 210 Performed By: #### L 100.0100, L500.2500, L501.9520, L501.5200, L506.1001, L500.4100, L501.1400 #### [facility] [address] [place], [place], [id number] GAP 10 Normal 5-15 [facility] Comment on above: Order Comment: 210 Performed By: #### L 100.0100, L500.2500, L501.9520, L501.5200, L506.1001, L500.4100, L501.1400 #### [facility] [address] [place], [place], [id number] Potassium [Moles/Vol] 4.1 mmol/L Normal 3.3-5.1 [facility] Comment on above: Order Comment: 210 Performed By: #### L 100.0100, L500.2500, L501.9520, L501.5200, L506.1001, L500.4100, L501.1400 #### [facility] [address] [facility] [place], [place], [id number] Basophil percentageOrdered B y: Dolly Marino on 10-28-2024 Basophils/100 WBC (Bld) 0.7 % 0-1 [facility] Comment on above: Order Comment: 210 Performed By: #### L 100.0100, L500.2500, L501.9520, L501.5200, L506.1001, L500.4100, L501.1400 #### [facility] [address] [facility] [place], [address] CBC W/Diff, Automatedon 06-0 Absolute Lymph 1.07 X10 3/uL Normal 0.83-4.51 [facility] Comment on above: Order Comment: 210 Performed By: #### L 100.0100, L500.2500, L501.9520, L501.5200, L506.1001, L500.4100, L501.1400 #### [facility] [address] [facility] [place], [address] Absolute Neut 2.8 X10 3/uL Normal 2.0-7.7 [facility] Comment on above: Order Comment: 210 Performed By: #### L 100.0100, L500.2500, L501.9520, L501.5200, L506.1001, L500.4100, L501.1400 #### [facility] [address] [facility] [place], [address] (128 IG% 0.400 Normal 0.0-0.9 [facility] Comment on above: Order Comment: 210 Result Comment: IG% - Immature Granulocytes (promyelocytes, myelocytes and metamyelocytes) > 1% indicates that a LEFT SHIFT is Present. Performed By: #### L 100.0100, L500.2500, L501.9520, L501.5200, L506.1001, L500.4100, L501.1400 #### [facility] [address] [place], [address] Lymphocytes/100 WBC (Bld) 24.0 % Normal 19-41 [facility] Comment on above: Order Comment: 210 Performed By: #### L 100.0100, L500.2500, L501.9520, L501.5200, L506.1001, L500.4100, L501.1400 #### [facility] [address] [place], [address] Nucleated RBC (Bld) [#/Vol] 0 10*3/uL Normal 0-5 [facility] Comment on above: Order Comment: 210 Performed By: #### L 100.0100, L500.2500, L501.9520, L501.5200, L506.1001, L500.4100, L501.1400 #### [facility] [address] [place], [address] RDW SD 53.1 fl High 35.1-43.9 [facility] Comment on above: Order Comment: 210 Performed By: #### L 100.0100, L500.2500, L501.9520, L501.5200, L506.1001, L500.4100, L501.1400 #### [facility] [address] [place], [address] Calculated very low density lipoprotein (VLDL) cholesterol measurementOrdered By: Dolly Marino on 10-28-2024 Calculated very low density lipoprotein (VLDL) cholesterol measurement 26 mg/dL 5-40 [facility] Carbon dioxide, total [Moles /volume] in Central venous bloodOrdered By: Dolly Marino on 10-28-2024 CO2 [Moles/Vol] 27.1 mmol/L 21.0-32.0 [facility] Comment on above: Order Comment: 210 Performed By: #### L 100.0100, L500.2500, L501.9520, L501.5200, L506.1001, L500.4100, L501.1400 #### [facility] [address] [place], [place], [id number] Chloride assayOrdered By: Darrin Marino on 10-28-2024 Chloride [Moles/Vol] 98 mmol/L 98-108 [facility] Comment on above: Order Comment: 210 Performed By: #### L 100.0100, L500.2500, L501.9520, L501.5200, L506.1001, L500.4100, L501.1400 #### [facility] [address] [place], [address] Eosinophil percentageOrdered By: Dolly Marino on 10-28-2024 Eosinophils/100 WBC (Bld) 2.0 % 0-5 [facility] Comment on above: Order Comment: 210 Performed By: #### L 100.0100, L500.2500, L501.9520, L501.5200, L506.1001, L500.4100, L501.1400 #### [facility] [address] [place], [address] Erythrocyte distribution wid th ratioOrdered By: Dolly Marino on 10-28-2024 Erythrocyte distribution width (RBC) [Ratio] 15.9 % High 11.6-14.6 [facility] Comment on above: Order Comment: 210 Performed By: #### L 100.0100, L500.2500, L501.9520, L501.5200, L506.1001, L500.4100, L501.1400 #### [facility] [address] [place], [address] Erythrocyte distribution wid th standard deviationOrdered By: Dolly Marino on 10-28-2024 Erythrocyte distribution width (RBC) [Ratio] 53.1 fl High 35.1-43.9 [facility] Glomerular filtration rate ( GFR) estimation/1.73 sq m using serum, plasma, or whole bOrdered By: Dolly Marino on 10-28-2024 GFR/1.73 sq M.predicted among non-blacks MDRD (S/P/Bld) [Vol rate/Area] 108 mL/min/{1.73_m2} >60 [facility] Comment on above: mL/min/1.73m2 CKD-EP I Creatinine Equation (2020) Order Comment: 210 Result Comment: mL/m in/1.73m2 CKD-EPI Creatinine Equation (2020) Performed By: #### L 100.0100, L500.2500, L501.9520, L501.5200, L506.1001, L500.4100, L501.1400 #### [facility] [address] [facility] [place], [place], [id number] Hemoglobin measurementOrdere d By: Dolly Marino on 10-28-2024 Hemoglobin (Bld) [Mass/Vol] 13.0 g/dL 13.0-16.5 [facility] Comment on above: Order Comment: 210 Performed By: #### L 100.0100, L500.2500, L501.9520, L501.5200, L506.1001, L500.4100, L501.1400 #### [facility] [address] [place], [address] Immature granulocytes/100 WB C Auto (Bld)Ordered By: Dolly Marino on 10-28-2024 Immature granulocytes/100 WBC (Bld) 0.400 % 0.0-0.9 [facility] Comment on above: IG% - Immature Granu locytes (promyelocytes, myelocytes and metamyelocytes) > 1% indicates that a LEFT SHIFT is Present. LDL calc ser/plasOrdered By: Dolly Marino on 10-28-2024 Cholesterol in LDL [Mass/Vol] 46 mg/dL [facility] Comment on above: Ewxxcjnnaa=639-734 m g/dL & Higher Ayxf=297 mg/dL or greater Order Comment: 210 Result Comment: Bord xqqlst=828-865 mg/dL Higher Wtet=568 mg/dL or greater Performed By: #### L 100.0100, L500.2500, L501.9520, L501.5200, L506.1001, L500.4100, L501.1400 #### [facility] [address] [place], [address] Lipid Profileon 10-28-2024 CHOL:HDL 4.07 Normal [facility] Comment on above: Order Comment: 210 Performed By: #### L 100.0100, L500.2500, L501.9520, L501.5200, L506.1001, L500.4100, L501.1400 #### [facility] [address] [place], [address] Cholesterol in VLDL [Mass/Vol] 26 mg/dL Normal 5-40 [facility] Comment on above: Order Comment: 210 Performed By: #### L 100.0100, L500.2500, L501.9520, L501.5200, L506.1001, L500.4100, L501.1400 #### [facility] [address] [place], [address] MCV (mean corpuscular volume ) determinationOrdered By: Dolly Marino on 10-28-2024 MCV (RBC) [Entitic vol] 91.2 fL 80-94 [facility] Comment on above: Order Comment: 210 Performed By: #### L 100.0100, L500.2500, L501.9520, L501.5200, L506.1001, L500.4100, L501.1400 #### [facility] [address] [place], [address] Magnesiumon 10-28-2024 Magnesium [Mass/Vol] 2.2 mg/dL Normal 1.5-2.2 [facility] Comment on above: Order Comment: 210 Performed By: #### L 500.4100, L501.9985 #### [facility] [address] [place], [address] Magnesium measurement (mass/ volume)Ordered By: Dolly Marino on 10-28-2024 Magnesium (Unsp spec) [Mass/Vol] 2.2 mg/dL 1.5-2.2 [facility] Mean corpuscular hemoglobin (MCH) determinationOrdered By: Dolly Marino on 10-28-2024 MCH (RBC) [Entitic mass] 28.8 pg 27.0-32.0 [facility] Comment on above: Order Comment: 210 Performed By: #### L 100.0100, L500.2500, L501.9520, L501.5200, L506.1001, L500.4100, L501.1400 #### [facility] [address] [place], [address] Mean corpuscular hemoglobin concentration (MCHC) determinationOrdered By: Dolly Marino on 10-28-2024 MCHC (RBC) [Mass/Vol] 31.6 g/dL Low 32-36 [facility] Comment on above: Order Comment: 210 Performed By: #### L 100.0100, L500.2500, L501.9520, L501.5200, L506.1001, L500.4100, L501.1400 #### [facility] [address] [place], [address] Mean platelet volume determi nationOrdered By: Dolly Marino on 10-28-2024 Platelet mean volume (Bld) [Entitic vol] 9.6 fL 6.2-12.0 [facility] Comment on above: Order Comment: 210 Performed By: #### L 100.0100, L500.2500, L501.9520, L501.5200, L506.1001, L500.4100, L501.1400 #### [facility] [address] [place], [address] Monocyte percentageOrdered B y: Dolly Marino on 10-28-2024 Monocytes/100 WBC (Bld) 11.0 % High 0-10 [facility] Comment on above: Order Comment: 210 Performed By: #### L 100.0100, L500.2500, L501.9520, L501.5200, L506.1001, L500.4100, L501.1400 #### [facility] [address] [place], [place], [address] Neutrophil percentageOrdered By: Dolly Marino on 10-28-2024 Neutrophils/100 WBC (Bld) 61.9 % 47-70 [facility] Comment on above: Order Comment: 210 Performed By: #### L 100.0100, L500.2500, L501.9520, L501.5200, L506.1001, L500.4100, L501.1400 #### [facility] [address] [place], [place], [id number] Nucleated red blood cell per centageOrdered By: Dolly Marino on 10-28-2024 Nucleated RBC/100 WBC (Bld) [Ratio] 0 % 0-5 [facility] Platelet countOrdered By: Darrin Marino on 10-28-2024 Platelets (Bld) [#/Vol] 154 10*3/uL 150-450 [facility] Comment on above: Order Comment: 210 Performed By: #### L 100.0100, L500.2500, L501.9520, L501.5200, L506.1001, L500.4100, L501.1400 #### [facility] [address] [place], [place], [address] Potassium measurement (mass/ volume)Ordered By: Dolly Marino on 10-28-2024 Potassium (Unsp spec) [Mass/Vol] 4.1 mmol/L 3.3-5.1 [facility] Screening total cholesterol/ high density lipoprotein (HDL) cholesterol ratioOrdered By: Dolly Marino on 10-28-2024 Cholesterol.total/Chio sterol in HDL [Mass ratio] 4.07 {ratio} [facility] Serum creatinine measurement (mass/volume)Ordered By: Dolly Marino on 10-28-2024 Creatinine [Mass/Vol] 0.74 mg/dL 0.70-1.20 [facility] Comment on above: Order Comment: 210 Performed By: #### L 100.0100, L500.2500, L501.9520, L501.5200, L506.1001, L500.4100, L501.1400 #### [facility] [address] [facility] [place], [place], [id number] Serum glucose measurement (m ass/volume)Ordered By: Dolly Marino on 10-28-2024 Glucose [Mass/Vol] 108 mg/dL High 70-99 [facility] Comment on above: Order Comment: 210 Performed By: #### L 100.0100, L500.2500, L501.9520, L501.5200, L506.1001, L500.4100, L501.1400 #### [facility] [address] [facility] [place], [address] Serum or plasma calcium scott urement (mass/volume)Ordered By: Dolly Marino on 10-28-2024 Calcium [Mass/Vol] 8.9 mg/dL 7.6-11.0 [facility] Comment on above: Order Comment: 210 Performed By: #### L 100.0100, L500.2500, L501.9520, L501.5200, L506.1001, L500.4100, L501.1400 #### [facility] [address] [place], [address] Serum or plasma cholesterol in HDL measurement (mass/volume)Ordered By: Dolly Marino on 10-28-2024 Cholesterol in HDL [Mass/Vol] 23 mg/dL Low >40 [facility] Comment on above: National Cholesterol Education [...] L500.2500, L501.9520, L501.5200, L506.1001, L500.4100, L501.1400 #### [facility] [address] [place], [place], [id number] Serum or plasma cholesterol measurement (mass/volume)Ordered By: Dolly Marino on 10-28-2024 Cholesterol [Mass/Vol] 95 mg/dL <201 [facility] Comment on above: Cholesterol level, D esirable <200 mg/dLBorderline high cholesterol 200-239 mg/dLHigh cholesterol >=240 mg/dLRecommendations of the NCEP Adult Treatment Panel for the following risk-cutoff thresholds for the [place] population. Order Comment: 210 Result Comment: Chol esterol level, Desirable <200 mg/dL Borderline high cholesterol 200-239 mg/dL High cholesterol >=240 mg/dL Recommendations of the NCEP Adult Treatment Panel for the following risk-cutoff thresholds for the [place] population. Performed By: #### L 100.0100, L500.2500, L501.9520, L501.5200, L506.1001, L500.4100, L501.1400 #### [facility] [address] [place], [address] Serum or plasma urea nitroge n measurement (mass/volume)Ordered By: Dolly Marino on 10-28-2024 Urea nitrogen [Mass/Vol] 10 mg/dL 4-19 [facility] Comment on above: Order Comment: 210 Performed By: #### L 100.0100, L500.2500, L501.9520, L501.5200, L506.1001, L500.4100, L501.1400 #### [facility] [address] [place], [address] Serum or plasma uric acid me asurement (mass/volume)Ordered By: Dolly Marino on 10-28-2024 Urate [Mass/Vol] 5.8 mg/dL 3.5-7.2 [facility] Comment on above: The drugs N-Acetylcy steine and Metamizole may falsely depress this assay. Sodium levelOrdered By: Missael Marino on 10-28-2024 Sodium [Moles/Vol] 135 mmol/L 133-145 [facility] Comment on above: Order Comment: 210 Performed By: #### L 100.0100, L500.2500, L501.9520, L501.5200, L506.1001, L500.4100, L501.1400 #### [facility] [address] [place], [address] TSH DL <= 0.005 mIU/L QnOrde red By: Dolly Marino on 10-28-2024 TSH Qn 3.370 uIU/mL 0.300-4.200 [facility] Thyroid Stim Hormone (TSH)on 10-28-2024 TSH 3.370 uIU/mL Normal 0.300-4.200 [facility] Comment on above: Order Comment: 210 Performed By: #### L 500.4100, L501.9985 #### [facility] [address] [place], [address] Triglycerides measurementOrd ered By: Dolly Marino on 10-28-2024 Triglyceride [Mass/Vol] 129 mg/dL <199 [facility] Comment on above: The drugs N-Acetylcy steine [...] L500.2500, L501.9520, L501.5200, L506.1001, L500.4100, L501.1400 #### [facility] [address] [place], [address] Uric Acidon 10-28-2024 URIC 5.8 mg/dL Normal 3.5-7.2 [facility] Comment on above: Order Comment: 210 Result Comment: The drugs N-Acetylcysteine and Metamizole may falsely depress this assay. Performed By: #### L 500.4100, L501.9985 #### [facility] [address] [place], [address] Vitamin D,25 Hydroxyon 10-28 Vitamin D 25-OH < 6.0 Low 30-100 [facility] Comment on above: Order Comment: 210 Result Comment: Colleen min D Status Deficiency: <20 ng/mL (50nmol/L) Insufficiency: 20-30 ng/mL (50-75 nmol/L) Sufficiency: 30-100 ng/mL (75-250 nmol/L) Toxicity: >100 ng/mL (>250 nmol/L) Performed By: #### L 500.4100, L501.9985 #### [facility] [address] [place], [address] White blood cell (WBC) count Ordered By: Dolly Marino on 10-28-2024 WBC (Bld) [#/Vol] 4.5 10*3/uL 4.4-11.0 [facility] Comment on above: Order Comment: 210 Performed By: #### L 100.0100, L500.2500, L501.9520, L501.5200, L506.1001, L500.4100, L501.1400 #### [facility] [address] [place], [address] Anion gap in Serum or Plasma Ordered By: Dolly Marino on 10-24-2024 Anion gap [Moles/Vol] 9 mmol/L 5-15 [facility] BUN/creatinine ratioOrdered By: Dolly Marino on 10-24-2024 Urea nitrogen/Creatinine [Mass ratio] 14.6 mg/mg 10-20 [facility] Bilirubin, totalOrdered By: Dolly Marino on 10-24-2024 Bilirubin [Mass/Vol] 0.31 mg/dL 0.00-1.30 [facility] CBC-Complete Blood Cnt No Di ffon 10-24-2024 Erythrocyte distribution width (RBC) [Ratio] 15.6 % High 11.6-14.6 [facility] Comment on above: Performed By: #### L 100.0500, L500.4050 #### [facility] [address] [place], [address] Hematocrit (Bld) [Volume fraction] 40.1 % Normal 40-54 [facility] Comment on above: Performed By: #### L 100.0500, L500.4050 #### [facility] [address] [place], [address] Hemoglobin (Bld) [Mass/Vol] 12.7 g/dL Low 13.0-16.5 [facility] Comment on above: Performed By: #### L 100.0500, L500.4050 #### [facility] [address] [place], [address] MCH (RBC) [Entitic mass] 28.7 pg Normal 27.0-32.0 [facility] Comment on above: Performed By: #### L 100.0500, L500.4050 #### [facility] [address] [place], [address] MCHC (RBC) [Mass/Vol] 31.7 g/dL Low 32-36 [facility] Comment on above: Performed By: #### L 100.0500, L500.4050 #### [facility] [address] [place], [address] MCV (RBC) [Entitic vol] 90.7 fL Normal 80-94 [facility] Comment on above: Performed By: #### L 100.0500, L500.4050 #### [facility] [address] [place], [address] Platelet mean volume (Bld) [Entitic vol] 9.3 fL Normal 6.2-12.0 [facility] Comment on above: Performed By: #### L 100.0500, L500.4050 #### [facility] [address] [place], [address] Platelets (Bld) [#/Vol] 155 10*3/uL Normal 150-450 [facility] Comment on above: Performed By: #### L 100.0500, L500.4050 #### [facility] [address] [place], [address] RBC (Bld) [#/Vol] 4.42 10*6/uL Low 4.6-6.2 [facility] Comment on above: Performed By: #### L 100.0500, L500.4050 #### [facility] [address] [place], [address] RDW SD 51.8 fl High 35.1-43.9 [facility] Comment on above: Performed By: #### L 100.0500, L500.4050 #### [facility] [address] [place], [address] WBC (Bld) [#/Vol] 4.6 10*3/uL Normal 4.4-11.0 [facility] Comment on above: Performed By: #### L 100.0500, L500.4050 #### [facility] [address] [place], [address] Carbon dioxide, total [Moles /volume] in Central venous bloodOrdered By: Dolly Marino on 10-24-2024 CO2 [Moles/Vol] 29.2 mmol/L 21.0-32.0 [facility] Chloride assayOrdered By: Darrin Marino on 10-24-2024 Chloride [Moles/Vol] 99 mmol/L 98-108 [facility] Comprehensive Metabolic Prof ilon 10-24-2024 Albumin [Mass/Vol] 3.4 g/dL Low 3.5-5.0 [facility] Comment on above: Performed By: #### L 100.0500, L500.4050 #### [facility] [address] [place], [address] Albumin/Globulin [Mass ratio] 1.0 {ratio} Normal 0.9-2.4 [facility] Comment on above: Performed By: #### L 100.0500, L500.4050 #### [facility] [address] [place], [address] ALK PHOS 76 U/L Normal 40-129 [facility] Comment on above: Performed By: #### L 100.0500, L500.4050 #### [facility] [address] [place], [address] ALT [Catalytic activity/Vol] 6 U/L Normal <=46 [facility] Comment on above: Performed By: #### L 100.0500, L500.4050 #### [facility] [address] [place], [address] AST [Catalytic activity/Vol] 18 U/L Normal <=37 [facility] Comment on above: Performed By: #### L 100.0500, L500.4050 #### [facility] [address] [place], [address] Bilirubin [Mass/Vol] 0.31 mg/dL Normal 0.00-1.30 [facility] Comment on above: Performed By: #### L 100.0500, L500.4050 #### [facility] [address] [place], [address] BUN/CRE 14.6 RATIO Normal 10-20 [facility] Comment on above: Performed By: #### L 100.0500, L500.4050 #### [facility] [address] [place], [address] Calcium [Mass/Vol] 9.0 mg/dL Normal 7.6-11.0 [facility] Comment on above: Performed By: #### L 100.0500, L500.4050 #### [facility] [address] [place], [address] Chloride [Moles/Vol] 99 mmol/L Normal 98-108 [facility] Comment on above: Performed By: #### L 100.0500, L500.4050 #### [facility] [address] [place], [address] CO2 [Moles/Vol] 29.2 mmol/L Normal 21.0-32.0 [facility] Comment on above: Performed By: #### L 100.0500, L500.4050 #### [facility] [address] [place], [address] Creatinine [Mass/Vol] 0.65 mg/dL Low 0.70-1.20 [facility] Comment on above: Performed By: #### L 100.0500, L500.4050 #### [facility] [address] [place], [address] GAP 9 Normal 5-15 [facility] Comment on above: Performed By: #### L 100.0500, L500.4050 #### [facility] [address] [place], [address] GFR/1.73 sq M.predicted among non-blacks MDRD (S/P/Bld) [Vol rate/Area] 113 mL/min/{1.73_m2} Normal >60 [facility] Comment on above: Result Comment: mL/m in/1.73m2 CKD-EPI Creatinine Equation (2020) Performed By: #### L 100.0500, L500.4050 #### [facility] [address] [place], [address] Globulin (S) [Mass/Vol] 3.2 g/dL Normal 2.2-4.2 [facility] Comment on above: Performed By: #### L 100.0500, L500.4050 #### [facility] [address] [place], [address] Glucose [Mass/Vol] 113 mg/dL High 70-99 [facility] Comment on above: Performed By: #### L 100.0500, L500.4050 #### [facility] [address] [place], [address] Potassium [Moles/Vol] 3.8 mmol/L Normal 3.3-5.1 [facility] Comment on above: Performed By: #### L 100.0500, L500.4050 #### [facility] [address] [place], [address] Sodium [Moles/Vol] 137 mmol/L Normal 133-145 [facility] Comment on above: Performed By: #### L 100.0500, L500.4050 #### [facility] [address] [place], [address] T PROT 6.6 g/dL Normal 5.9-8.4 [facility] Comment on above: Performed By: #### L 100.0500, L500.4050 #### [facility] [address] [place], [address] Urea nitrogen [Mass/Vol] 10 mg/dL Normal 4-19 [facility] Comment on above: Performed By: #### L 100.0500, L500.4050 #### [facility] [address] [place], [address] Erythrocyte distribution wid th ratioOrdered By: Dolly Marino on 10-24-2024 Erythrocyte distribution width (RBC) [Ratio] 15.6 % High 11.6-14.6 [facility] Erythrocyte distribution wid th standard deviationOrdered By: Dolly Marino on 10-24-2024 Erythrocyte distribution width (RBC) [Ratio] 51.8 fl High 35.1-43.9 [facility] Glomerular filtration rate ( GFR) estimation/1.73 sq m using serum, plasma, or whole bOrdered By: Dolly Marino on 10-24-2024 GFR/1.73 sq M.predicted among non-blacks MDRD (S/P/Bld) [Vol rate/Area] 113 mL/min/{1.73_m2} >60 [facility] Comment on above: mL/min/1.73m2 CKD-EP I Creatinine Equation (2020) Hematocrit Auto (Bld) [Volum e fraction]Ordered By: Dolly Marino on 10-24-2024 Hematocrit (Bld) [Volume fraction] 40.1 % 40-54 [facility] Hemoglobin measurementOrdere d By: Dolly Marino on 10-24-2024 Hemoglobin (Bld) [Mass/Vol] 12.7 g/dL Low 13.0-16.5 [facility] - Chemistry and C hemistry - challengeOrdered By: Dolly Marino on 10-24-2024 AST [Catalytic activity/Vol] 18 U/L <38 [facility] MCV (mean corpuscular volume ) determinationOrdered By: Dolly Marino on 10-24-2024 MCV (RBC) [Entitic vol] 90.7 fL 80-94 [facility] Mean corpuscular hemoglobin (MCH) determinationOrdered By: Dolly Marino on 10-24-2024 MCH (RBC) [Entitic mass] 28.7 pg 27.0-32.0 [facility] Mean corpuscular hemoglobin concentration (MCHC) determinationOrdered By: Dolly Marino on 10-24-2024 MCHC (RBC) [Mass/Vol] 31.7 g/dL Low 32-36 [facility] Mean platelet volume determi nationOrdered By: Dolly Marino on 10-24-2024 Platelet mean volume (Bld) [Entitic vol] 9.3 fL 6.2-12.0 [facility] Platelet countOrdered By: Darrin Marino on 10-24-2024 Platelets (Bld) [#/Vol] 155 10*3/uL 150-450 [facility] Potassium measurement (mass/ volume)Ordered By: Dolly Marino on 10-24-2024 Potassium (Unsp spec) [Mass/Vol] 3.8 mmol/L 3.3-5.1 [facility] RBC Auto (Bld) [#/Vol]Ordere d By: Dolly Marino on 10-24-2024 RBC (Bld) [#/Vol] 4.42 10*6/uL Low 4.6-6.2 [facility] Serum creatinine measurement (mass/volume)Ordered By: Dolly Marino on 10-24-2024 Creatinine [Mass/Vol] 0.65 mg/dL Low 0.70-1.20 [facility] Serum globulin measurementOr dered By: Dolly Marino on 10-24-2024 Globulin (S) [Mass/Vol] 3.2 g/dL 2.2-4.2 [facility] Serum glucose measurement (m ass/volume)Ordered By: Dolly Marino on 10-24-2024 Glucose [Mass/Vol] 113 mg/dL High 70-99 [facility] Serum or plasma alanine linda otransferase (ALT) measurementOrdered By: Dolly Marino on 10-24-2024 ALT [Catalytic activity/Vol] 6 U/L <47 [facility] Serum or plasma albumin scott urement (mass/volume)Ordered By: Dolly Marino on 10-24-2024 Albumin [Mass/Vol] 3.4 g/dL Low 3.5-5.0 [facility] Serum or plasma albumin/glob ulin mass ratioOrdered By: Dolly Marino on 10-24-2024 Albumin/Globulin [Mass ratio] 1.0 {ratio} 0.9-2.4 [facility] Serum or plasma alkaline kamaljit sphatase measurementOrdered By: Dolly Marino on 10-24-2024 ALP [Catalytic activity/Vol] 76 U/L 40-129 [facility] Serum or plasma calcium scott urement (mass/volume)Ordered By: Dolly Marino on 10-24-2024 Calcium [Mass/Vol] 9.0 mg/dL 7.6-11.0 [facility] Serum or plasma urea nitroge n measurement (mass/volume)Ordered By: Dolly Marino on 10-24-2024 Urea nitrogen [Mass/Vol] 10 mg/dL 4-19 [facility] Sodium levelOrdered By: Missael Marino on 10-24-2024 Sodium [Moles/Vol] 137 mmol/L 133-145 [facility] Total proteinOrdered By: Sahara Marino on 10-24-2024 Protein [Mass/Vol] 6.6 g/dL 5.9-8.4 [facility] White blood cell (WBC) count Ordered By: Dolly Marino on 10-24-2024 WBC (Bld) [#/Vol] 4.6 10*3/uL 4.4-11.0 [facility] LABORATORYOrdered By: Samanta Morin on 10-23-2024 Blood Glucose Testing Reason Routine (10/23/24 8:27 PM) [facility] Glucose [Mass/Vol] 168 mg/dL High 70 - 110 mg/dL [facility] LABORATORYOrdered By: Sarah Carrillo on 10-23-2024 Blood Glucose Testing Reason Routine (10/23/24 5:31 PM) [facility] Glucose [Mass/Vol] 146 mg/dL High 70 - 110 mg/dL [facility] LABORATORYOrdered By: Gianna Mendez on 10-23-2024 Blood Glucose Testing Reason Routine (10/23/24 12:15 PM) [facility] Glucose [Mass/Vol] 154 mg/dL High 70 - 110 mg/dL [facility] Comment on above: Result Comment: noti fied nurse SHAHEEN Staples .Auto Diffon 10-20-2024 Basophil, Absolute 0.0 10 3/mcL Normal 0.0-0.3 [facility] Comment on above: Performed By: #### A DIFF, ANEU, BMP, CBC, GFR #### [address] [address] Basophils/100 WBC (Bld) 0.6 % Normal 0.0-2.5 [facility] Comment on above: Performed By: #### A DIFF, ANEU, BMP, CBC, GFR #### [address] [address] Eosinophil, Absolute 0.1 10 3/mcL Normal 0.0-0.7 [facility] Comment on above: Performed By: #### A DIFF, ANEU, BMP, CBC, GFR #### [address] [address] Eosinophils/100 WBC (Bld) 1.5 % Normal 0.0-6.0 [facility] Comment on above: Performed By: #### A DIFF, ANEU, BMP, CBC, GFR #### [address] [address] Lymphocyte, Absolute 1.0 10 3/mcL Normal 0.9-4.3 [facility] Comment on above: Performed By: #### A DIFF, ANEU, BMP, CBC, GFR #### [address] [address] Lymphocytes/100 WBC (Bld) 21.2 % Normal 20.0-40.0 [facility] Comment on above: Performed By: #### A DIFF, ANEU, BMP, CBC, GFR #### [address] [address] Monocyte, Absolute 0.6 10 3/mcL Normal 0.1-1.4 [facility] Comment on above: Performed By: #### A DIFF, ANEU, BMP, CBC, GFR #### [address] [address] Monocytes/100 WBC (Bld) 11.6 % Normal 2.0-13.0 [facility] Comment on above: Performed By: #### A DIFF, ANEU, BMP, CBC, GFR #### [address] [address] Neutrophils/100 WBC (Bld) 65.1 % Normal 50.0-75.0 [facility] Comment on above: Performed By: #### A DIFF, ANEU, BMP, CBC, GFR #### [address] [address] .GFRon 10-20-2024 Estimated Glomerular Filtration Rate 108 ml/min/1.73sqm Normal [facility] Comment on above: Result Comment: [...] A DIFF, ANEU, BMP, CBC, GFR #### [address] [address] .NEUABSon 10-20-2024 Neutrophil, Absolute 3.2 10 3/mcL Normal 2.3-8.1 [facility] Comment on above: Performed By: #### A DIFF, ANEU, BMP, CBC, GFR #### [address] [address] BMPon 10-20-2024 BUN/Creatinine Ratio 10.8 ratio Normal 10.0-22.0 [facility] Comment on above: Performed By: #### A DIFF, ANEU, BMP, CBC, GFR #### [address] [address] Calcium [Mass/Vol] 8.7 mg/dL Normal 8.7-10.4 [facility] Comment on above: Performed By: #### A DIFF, ANEU, BMP, CBC, GFR #### [address] [address] Chloride [Moles/Vol] 97 mmol/L Low 98-110 [facility] Comment on above: Performed By: #### A DIFF, ANEU, BMP, CBC, GFR #### [address] [address] CO2 [Moles/Vol] 37 mmol/L High 22-32 [facility] Comment on above: Performed By: #### A DIFF, ANEU, BMP, CBC, GFR #### [address] [address] Creatinine [Mass/Vol] 0.74 mg/dL Normal 0.60-1.40 [facility] Comment on above: Result Comment: Test ing performed on [employer] analyzer using enzymatic creatinine methodology. Performed By: #### A DIFF, ANEU, BMP, CBC, GFR #### [address] [address] Electrolyte Balance 4.0 mEq/L Normal 4.0-15.0 [facility] Comment on above: Performed By: #### A DIFF, ANEU, BMP, CBC, GFR #### [address] [address] Glucose [Mass/Vol] 116 mg/dL High 70-110 [facility] Comment on above: Performed By: #### A DIFF, ANEU, BMP, CBC, GFR #### [address] [address] Potassium [Moles/Vol] 3.5 mmol/L Normal 3.5-5.0 [facility] Comment on above: Performed By: #### A DIFF, ANEU, BMP, CBC, GFR #### [address] [address] Sodium [Moles/Vol] 138 mmol/L Normal 136-145 [facility] Comment on above: Performed By: #### A DIFF, ANEU, BMP, CBC, GFR #### [place] [address] Urea nitrogen [Mass/Vol] 8.0 mg/dL Normal 8.0-22.0 [facility] Comment on above: Performed By: #### A DIFF, ANEU, BMP, CBC, GFR #### [place] [address] CBCon 10-20-2024 Erythrocyte distribution width (RBC) [Ratio] 16.8 % High 11.5-15.5 [facility] Comment on above: Performed By: #### A DIFF, ANEU, BMP, CBC, GFR #### [place] [address] Hematocrit (Bld) [Volume fraction] 41.3 % Normal 40.0-52.0 [facility] Comment on above: Performed By: #### A DIFF, ANEU, BMP, CBC, GFR #### [place] [address] Hgb 13.4 G/dL Normal 13.0-17.5 [facility] Comment on above: Performed By: #### A DIFF, ANEU, BMP, CBC, GFR #### [place] [address] MCH (RBC) [Entitic mass] 28.7 pg Normal 27.0-33.0 [facility] Comment on above: Performed By: #### A DIFF, ANEU, BMP, CBC, GFR #### [place] [address] MCHC 32.4 G/dL Normal 32.0-36.0 [facility] Comment on above: Performed By: #### A DIFF, ANEU, BMP, CBC, GFR #### [place] [address] MCV (RBC) [Entitic vol] 88.5 fL Normal 81.0-100.0 [facility] Comment on above: Performed By: #### A DIFF, ANEU, BMP, CBC, GFR #### [address] [address] Platelet 175 10 3/mcL Normal 150-450 [facility] Comment on above: Performed By: #### A DIFF, ANEU, BMP, CBC, GFR #### [place] [id number] [place] [address] Platelet mean volume (Bld) [Entitic vol] 7.3 fL Normal 6.4-10.5 [facility] Comment on above: Performed By: #### A DIFF, ANEU, BMP, CBC, GFR #### [place] [id number] [place] [address] RBC 4.67 10 6/mcL Normal 4.50-6.00 [facility] Comment on above: Performed By: #### A DIFF, ANEU, BMP, CBC, GFR #### [address] [address] WBC 4.8 10 3/mcL Normal 4.5-10.8 [facility] Comment on above: Performed By: #### A DIFF, ANEU, BMP, CBC, GFR #### [place] [address] LABORATORYOrdered By: SYSTEM SYSTEM on 10-20-2024 Basophils [...] above: Interpretive Data: T esting performed on [employer] analyzer using enzymatic creatinine methodology. Electrolyte Balance [...] Basophil, Absolute 0.0 10 3/mcL Normal 0.0-0.3 [facility] Comment on above: Performed By: #### A DIFF, ANEU, BMP, CBC, GFR #### [address] [address] Basophils/100 WBC (Bld) 0.7 % Normal 0.0-2.5 [facility] Comment on above: Performed By: #### A DIFF, ANEU, BMP, CBC, GFR #### [address] [address] Eosinophil, Absolute 0.1 10 3/mcL Normal 0.0-0.7 [facility] Comment on above: Performed By: #### A DIFF, ANEU, BMP, CBC, GFR #### [address] [address] Eosinophils/100 WBC (Bld) 1.9 % Normal 0.0-6.0 [facility] Comment on above: Performed By: #### A DIFF, ANEU, BMP, CBC, GFR #### [address] [address] Lymphocyte, Absolute 1.0 10 3/mcL Normal 0.9-4.3 [facility] Comment on above: Performed By: #### A DIFF, ANEU, BMP, CBC, GFR #### [address] [address] Lymphocytes/100 WBC (Bld) 18.3 % Low 20.0-40.0 [facility] Comment on above: Performed By: #### A DIFF, ANEU, BMP, CBC, GFR #### [address] [address] Monocyte, Absolute 0.5 10 3/mcL Normal 0.1-1.4 [facility] Comment on above: Performed By: #### A DIFF, ANEU, BMP, CBC, GFR #### [address] [address] Monocytes/100 WBC (Bld) 9.1 % Normal 2.0-13.0 [facility] Comment on above: Performed By: #### A DIFF, ANEU, BMP, CBC, GFR #### [address] [address] Neutrophils/100 WBC (Bld) 70.0 % Normal 50.0-75.0 [facility] Comment on above: Performed By: #### A DIFF, ANEU, BMP, CBC, GFR #### [address] [address] .GFRon 10-19-2024 Estimated Glomerular Filtration Rate 109 ml/min/1.73sqm Normal [facility] Comment on above: Result Comment: [...] ANEU, BMP, CBC, GFR #### [place] [id number] .NEUABSon 10-19-2024 Neutrophil, Absolute 3.8 10 3/mcL Normal 2.3-8.1 [facility] Comment on above: Performed By: #### A DIFF, ANEU, BMP, CBC, GFR #### [place] [id number] BMPon 10-19-2024 BUN/Creatinine Ratio 11.1 ratio Normal 10.0-22.0 [facility] Comment on above: Performed By: #### A DIFF, ANEU, BMP, CBC, GFR #### [place] [address] Calcium [Mass/Vol] 8.7 mg/dL Normal 8.7-10.4 [facility] Comment on above: Performed By: #### A DIFF, ANEU, BMP, CBC, GFR #### [place] [address] Chloride [Moles/Vol] 100 mmol/L Normal 98-110 [facility] Comment on above: Performed By: #### A DIFF, ANEU, BMP, CBC, GFR #### [place] [address] CO2 [Moles/Vol] 33 mmol/L High 22-32 [facility] Comment on above: Performed By: #### A DIFF, ANEU, BMP, CBC, GFR #### [place] [address] Creatinine [Mass/Vol] 0.72 mg/dL Normal 0.60-1.40 [facility] Comment on above: Result Comment: Test ing performed on [employer] analyzer using enzymatic creatinine methodology. Performed By: #### A DIFF, ANEU, BMP, CBC, GFR #### [place] [address] Electrolyte Balance 4.0 mEq/L Normal 4.0-15.0 [facility] Comment on above: Performed By: #### A DIFF, ANEU, BMP, CBC, GFR #### [address] [address] Glucose [Mass/Vol] 181 mg/dL High 70-110 [facility] Comment on above: Performed By: #### A DIFF, ANEU, BMP, CBC, GFR #### [place] [id number] Potassium [Moles/Vol] 3.5 mmol/L Normal 3.5-5.0 [facility] Comment on above: Performed By: #### A DIFF, ANEU, BMP, CBC, GFR #### [place] [id number] Sodium [Moles/Vol] 137 mmol/L Normal 136-145 [facility] Comment on above: Performed By: #### A DIFF, ANEU, BMP, CBC, GFR #### [place] [address] Urea nitrogen [Mass/Vol] 8.0 mg/dL Normal 8.0-22.0 [facility] Comment on above: Performed By: #### A DIFF, ANEU, BMP, CBC, GFR #### [place] [address] CBCon 10-19-2024 Erythrocyte distribution width (RBC) [Ratio] 17.3 % High 11.5-15.5 [facility] Comment on above: Performed By: #### A DIFF, ANEU, BMP, CBC, GFR #### [place] [id number] Hematocrit (Bld) [Volume fraction] 40.5 % Normal 40.0-52.0 [facility] Comment on above: Performed By: #### A DIFF, ANEU, BMP, CBC, GFR #### [place] [id number] Hgb 13.0 G/dL Normal 13.0-17.5 [facility] Comment on above: Performed By: #### A DIFF, ANEU, BMP, CBC, GFR #### [place] [address] MCH (RBC) [Entitic mass] 28.6 pg Normal 27.0-33.0 [facility] Comment on above: Performed By: #### A DIFF, ANEU, BMP, CBC, GFR #### [place] [address] MCHC 32.1 G/dL Normal 32.0-36.0 [facility] Comment on above: Performed By: #### A DIFF, ANEU, BMP, CBC, GFR #### [place] [address] MCV (RBC) [Entitic vol] 89.2 fL Normal 81.0-100.0 [facility] Comment on above: Performed By: #### A DIFF, ANEU, BMP, CBC, GFR #### [place] [address] Platelet 171 10 3/mcL Normal 150-450 [facility] Comment on above: Performed By: #### A DIFF, ANEU, BMP, CBC, GFR #### [place] [address] Platelet mean volume (Bld) [Entitic vol] 7.6 fL Normal 6.4-10.5 [facility] Comment on above: Performed By: #### A DIFF, ANEU, BMP, CBC, GFR #### [place] [address] RBC 4.54 10 6/mcL Normal 4.50-6.00 [facility] Comment on above: Performed By: #### A DIFF, ANEU, BMP, CBC, GFR #### [place] [address] WBC 5.4 10 3/mcL Normal 4.5-10.8 [facility] Comment on above: Performed By: #### A DIFF, ANEU, BMP, CBC, GFR #### [place] [address] LABORATORYOrdered By: SYSTEM SYSTEM on 10-19-2024 Basophils [...] above: Interpretive Data: T esting performed on [employer] analyzer using enzymatic creatinine methodology. Electrolyte Balance [...] Basophil, Absolute 0.0 10 3/mcL Normal 0.0-0.3 [facility] Comment on above: Performed By: #### C BC, MG, GFR, ADIFF, BMP, ANEU #### [facility] [address] [place] [address] Basophils/100 WBC (Bld) 0.6 % Normal 0.0-2.5 [facility] Comment on above: Performed By: #### C BC, MG, GFR, ADIFF, BMP, ANEU #### [address] [address] Eosinophil, Absolute 0.1 10 3/mcL Normal 0.0-0.7 [facility] Comment on above: Performed By: #### C BC, MG, GFR, ADIFF, BMP, ANEU #### [address] [address] Eosinophils/100 WBC (Bld) 1.7 % Normal 0.0-6.0 [facility] Comment on above: Performed By: #### C BC, MG, GFR, ADIFF, BMP, ANEU #### [address] [address] Lymphocyte, Absolute 1.2 10 3/mcL Normal 0.9-4.3 [facility] Comment on above: Performed By: #### C BC, MG, GFR, ADIFF, BMP, ANEU #### [address] [address] Lymphocytes/100 WBC (Bld) 19.0 % Low 20.0-40.0 [facility] Comment on above: Performed By: #### C BC, MG, GFR, ADIFF, BMP, ANEU #### [address] [address] Monocyte, Absolute 0.9 10 3/mcL Normal 0.1-1.4 [facility] Comment on above: Performed By: #### C BC, MG, GFR, ADIFF, BMP, ANEU #### [address] [address] Monocytes/100 WBC (Bld) 14.1 % High 2.0-13.0 [facility] Comment on above: Performed By: #### C BC, MG, GFR, ADIFF, BMP, ANEU #### [address] [address] Neutrophils/100 WBC (Bld) 64.6 % Normal 50.0-75.0 [facility] Comment on above: Performed By: #### C BC, MG, GFR, ADIFF, BMP, ANEU #### [address] [address] Basophil, Absolute 0.0 10 3/mcL Normal 0.0-0.3 [facility] Comment on above: Performed By: #### C BC, MG, GFR, ADIFF, BMP, ANEU #### [address] [address] Basophils/100 WBC (Bld) 0.4 % Normal 0.0-2.5 [facility] Comment on above: Performed By: #### C BC, MG, GFR, ADIFF, BMP, ANEU #### [address] [address] Eosinophil, Absolute 0.1 10 3/mcL Normal 0.0-0.7 [facility] Comment on above: Performed By: #### C BC, MG, GFR, ADIFF, BMP, ANEU #### [address] [address] Eosinophils/100 WBC (Bld) 1.2 % Normal 0.0-6.0 [facility] Comment on above: Performed By: #### C BC, MG, GFR, ADIFF, BMP, ANEU #### [address] [address] Lymphocyte, Absolute 0.7 10 3/mcL Low 0.9-4.3 [facility] Comment on above: Performed By: #### C BC, MG, GFR, ADIFF, BMP, ANEU #### [address] [address] Lymphocytes/100 WBC (Bld) 16.1 % Low 20.0-40.0 [facility] Comment on above: Performed By: #### C BC, MG, GFR, ADIFF, BMP, ANEU #### [address] [address] Monocyte, Absolute 0.5 10 3/mcL Normal 0.1-1.4 [facility] Comment on above: Performed By: #### C BC, MG, GFR, ADIFF, BMP, ANEU #### [address] [address] Monocytes/100 WBC (Bld) 11.8 % Normal 2.0-13.0 [facility] Comment on above: Performed By: #### C BC, MG, GFR, ADIFF, BMP, ANEU #### [address] [address] Neutrophils/100 WBC (Bld) 70.5 % Normal 50.0-75.0 [facility] Comment on above: Performed By: #### C BC, MG, GFR, ADIFF, BMP, ANEU #### [address] [address] .GFRon 10-18-2024 Estimated Glomerular Filtration Rate 112 ml/min/1.73sqm [facility] Comment on above: Result [...] BC, MG, GFR, ADIFF, BMP, ANEU #### [address] [address] Estimated Glomerular Filtration Rate 114 ml/min/1.73sqm [facility] Comment on above: Result [...] BC, MG, GFR, ADIFF, BMP, ANEU #### [address] [address] .NEUABSon 10-18-2024 Neutrophil, Absolute 3.9 10 3/mcL Normal 2.3-8.1 [facility] Comment on above: Performed By: #### C BC, MG, GFR, ADIFF, BMP, ANEU #### [place] [address] Neutrophil, Absolute 3.3 10 3/mcL Normal 2.3-8.1 [facility] Comment on above: Performed By: #### C BC, MG, GFR, ADIFF, BMP, ANEU #### [address] 10-18-2024 BUN/Creatinine Ratio 9.0 ratio Low 10.0-22.0 [facility] Comment on above: Performed By: #### C BC, MG, GFR, ADIFF, BMP, ANEU #### [place] [address] Calcium [Mass/Vol] 8.7 mg/dL Normal 8.7-10.4 [facility] Comment on above: Performed By: #### C BC, MG, GFR, ADIFF, BMP, ANEU #### [place] [address] Chloride [Moles/Vol] 99 mmol/L Normal 98-110 [facility] Comment on above: Performed By: #### C BC, MG, GFR, ADIFF, BMP, ANEU #### [place] [id number] CO2 [Moles/Vol] 33 mmol/L High 22-32 [facility] Comment on above: Performed By: #### C BC, MG, GFR, ADIFF, BMP, ANEU #### [place] [id number] Creatinine [Mass/Vol] 0.67 mg/dL Normal 0.60-1.40 [facility] Comment on above: Result Comment: Test ing performed on [employer] analyzer using enzymatic creatinine methodology. Performed By: #### C BC, MG, GFR, ADIFF, BMP, ANEU #### [address] [address] Electrolyte Balance 5.0 mEq/L Normal 4.0-15.0 [facility] Comment on above: Performed By: #### C BC, MG, GFR, ADIFF, BMP, ANEU #### [address] [address] Glucose [Mass/Vol] 115 mg/dL High 70-110 [facility] Comment on above: Performed By: #### C BC, MG, GFR, ADIFF, BMP, ANEU #### [place] [id number] Potassium [Moles/Vol] 3.4 mmol/L Low 3.5-5.0 [facility] Comment on above: Performed By: #### C BC, MG, GFR, ADIFF, BMP, ANEU #### [place] [id number] Sodium [Moles/Vol] 137 mmol/L Normal 136-145 [facility] Comment on above: Performed By: #### C BC, MG, GFR, ADIFF, BMP, ANEU #### [place] [id number] Urea nitrogen [Mass/Vol] 6.0 mg/dL Low 8.0-22.0 [facility] Comment on above: Performed By: #### C BC, MG, GFR, ADIFF, BMP, ANEU #### [place] [id number] BUN/Creatinine Ratio Unable to Calculate Normal 10.0-2 2.0 [facility] Comment on above: Order Comment: Plejonah e draw daily labs at 3 AM for 3 days Result Comment: Unab le to calculate this test result accurately. Results used to calculate this test are outside the reportable range. Performed By: #### C BC, MG, GFR, ADIFF, BMP, ANEU #### [address] [address] Urea nitrogen [Mass/Vol] mg/dL Low 8.0-22.0 [facility] Comment on above: Order Comment: Pleas e draw daily labs at 3 AM for 3 days Performed By: #### C BC, MG, GFR, ADIFF, BMP, ANEU #### [address] [address] Calcium [Mass/Vol] 9.2 mg/dL Normal 8.7-10.4 [facility] Comment on above: Order Comment: Pleas e draw daily labs at 3 AM for 3 days Performed By: #### C BC, MG, GFR, ADIFF, BMP, ANEU #### [address] [address] Chloride [Moles/Vol] 101 mmol/L Normal 98-110 [facility] Comment on above: Order Comment: Pleas e draw daily labs at 3 AM for 3 days Performed By: #### C BC, MG, GFR, ADIFF, BMP, ANEU #### [address] [address] CO2 [Moles/Vol] 33 mmol/L High 22-32 [facility] Comment on above: Order Comment: Pleas e draw daily labs at 3 AM for 3 days Performed By: #### C BC, MG, GFR, ADIFF, BMP, ANEU #### [address] [address] Creatinine [Mass/Vol] 0.63 mg/dL Normal 0.60-1.40 [facility] Comment on above: Order Comment: Pleas e draw daily labs at 3 AM for 3 days Result Comment: Test ing performed on [employer] analyzer using enzymatic creatinine methodology. Performed By: #### C BC, MG, GFR, ADIFF, BMP, ANEU #### [address] [address] Electrolyte Balance 5.0 mEq/L Normal 4.0-15.0 [facility] Comment on above: Order Comment: Pleas e draw daily labs at 3 AM for 3 days Performed By: #### C BC, MG, GFR, ADIFF, BMP, ANEU #### [address] [address] Glucose [Mass/Vol] 110 mg/dL Normal 70-110 [facility] Comment on above: Order Comment: Pleas e draw daily labs at 3 AM for 3 days Performed By: #### C BC, MG, GFR, ADIFF, BMP, ANEU #### [place] [address] Potassium [Moles/Vol] 3.6 mmol/L Normal 3.5-5.0 [facility] Comment on above: Order Comment: Pleas e draw daily labs at 3 AM for 3 days Performed By: #### C BC, MG, GFR, ADIFF, BMP, ANEU #### [place] [address] Sodium [Moles/Vol] 139 mmol/L Normal 136-145 [facility] Comment on above: Order Comment: Pleas e draw daily labs at 3 AM for 3 days Performed By: #### C BC, MG, GFR, ADIFF, BMP, ANEU #### [address] [address] CBCon 10-18-2024 Erythrocyte distribution width (RBC) [Ratio] 17.3 % High 11.5-15.5 [facility] Comment on above: Performed By: #### C BC, MG, GFR, ADIFF, BMP, ANEU #### [place] [address] Hematocrit (Bld) [Volume fraction] 41.4 % Normal 40.0-52.0 [facility] Comment on above: Performed By: #### C BC, MG, GFR, ADIFF, BMP, ANEU #### [place] [id number] Hgb 13.5 G/dL Normal 13.0-17.5 [facility] Comment on above: Performed By: #### C BC, MG, GFR, ADIFF, BMP, ANEU #### [place] [address] MCH (RBC) [Entitic mass] 28.9 pg Normal 27.0-33.0 [facility] Comment on above: Performed By: #### C BC, MG, GFR, ADIFF, BMP, ANEU #### [place] [address] MCHC 32.7 G/dL Normal 32.0-36.0 [facility] Comment on above: Performed By: #### C BC, MG, GFR, ADIFF, BMP, ANEU #### [place] [address] MCV (RBC) [Entitic vol] 88.4 fL Normal 81.0-100.0 [facility] Comment on above: Performed By: #### C BC, MG, GFR, ADIFF, BMP, ANEU #### [place] [address] Platelet 158 10 3/mcL Normal 150-450 [facility] Comment on above: Performed By: #### C BC, MG, GFR, ADIFF, BMP, ANEU #### [place] [address] Platelet mean volume (Bld) [Entitic vol] 7.9 fL Normal 6.4-10.5 [facility] Comment on above: Performed By: #### C BC, MG, GFR, ADIFF, BMP, ANEU #### [place] [address] RBC 4.68 10 6/mcL Normal 4.50-6.00 [facility] Comment on above: Performed By: #### C BC, MG, GFR, ADIFF, BMP, ANEU #### [place] [address] WBC 6.1 10 3/mcL Normal 4.5-10.8 [facility] Comment on above: Performed By: #### C BC, MG, GFR, ADIFF, BMP, ANEU #### [place] [address] Erythrocyte distribution width (RBC) [Ratio] 16.9 % High 11.5-15.5 [facility] Comment on above: Order Comment: QNS Performed By: #### C BC, MG, GFR, ADIFF, BMP, ANEU #### [place] [address] Hematocrit (Bld) [Volume fraction] 41.4 % Normal 40.0-52.0 [facility] Comment on above: Order Comment: QNS Performed By: #### C BC, MG, GFR, ADIFF, BMP, ANEU #### [place] [address] Hgb 13.6 G/dL Normal 13.0-17.5 [facility] Comment on above: Order Comment: QNS Performed By: #### C BC, MG, GFR, ADIFF, BMP, ANEU #### [place] [address] MCH (RBC) [Entitic mass] 29.0 pg Normal 27.0-33.0 [facility] Comment on above: Order Comment: QNS Performed By: #### C BC, MG, GFR, ADIFF, BMP, ANEU #### [place] [address] MCHC 32.8 G/dL Normal 32.0-36.0 [facility] Comment on above: Order Comment: QNS Performed By: #### C BC, MG, GFR, ADIFF, BMP, ANEU #### [place] [address] MCV (RBC) [Entitic vol] 88.3 fL Normal 81.0-100.0 [facility] Comment on above: Order Comment: QNS Performed By: #### C BC, MG, GFR, ADIFF, BMP, ANEU #### [place] [address] Platelet 127 10 3/mcL Low 150-450 [facility] Comment on above: Order Comment: QNS Performed By: #### C BC, MG, GFR, ADIFF, BMP, ANEU #### [place] [address] Platelet mean volume (Bld) [Entitic vol] 7.7 fL Normal 6.4-10.5 [facility] Comment on above: Order Comment: QNS Performed By: #### C BC, MG, GFR, ADIFF, BMP, ANEU #### [place] [address] RBC 4.70 10 6/mcL Normal 4.50-6.00 [facility] Comment on above: Order Comment: QNS Performed By: #### C BC, MG, GFR, ADIFF, BMP, ANEU #### [address] [address] WBC 4.6 10 3/mcL Normal 4.5-10.8 [facility] Comment on above: Order Comment: QNS Performed By: #### C BC, MG, GFR, ADIFF, BMP, ANEU #### [address] [address] LABORATORYOrdered By: SYSTEM SYSTEM on 10-18-2024 Basophils [...] above: Interpretive Data: T esting performed on [employer] analyzer using enzymatic creatinine methodology. Electrolyte Balance [...] Basophil, Absolute 0.0 10 3/mcL Normal 0.0-0.3 [facility] Comment on above: Performed By: #### A DIFF, ANEU, BMP, CBC, GFR #### [address] [address] Basophils/100 WBC (Bld) 0.6 % Normal 0.0-2.5 [facility] Comment on above: Performed By: #### A DIFF, ANEU, BMP, CBC, GFR #### [address] [address] Eosinophil, Absolute 0.1 10 3/mcL Normal 0.0-0.7 [facility] Comment on above: Performed By: #### A DIFF, ANEU, BMP, CBC, GFR #### [address] [address] Eosinophils/100 WBC (Bld) 1.1 % Normal 0.0-6.0 [facility] Comment on above: Performed By: #### A DIFF, ANEU, BMP, CBC, GFR #### [address] [address] Lymphocyte, Absolute 0.9 10 3/mcL Normal 0.9-4.3 [facility] Comment on above: Performed By: #### A DIFF, ANEU, BMP, CBC, GFR #### [address] [address] Lymphocytes/100 WBC (Bld) 17.7 % Low 20.0-40.0 [facility] Comment on above: Performed By: #### A DIFF, ANEU, BMP, CBC, GFR #### [address] [address] Monocyte, Absolute 0.6 10 3/mcL Normal 0.1-1.4 [facility] Comment on above: Performed By: #### A DIFF, ANEU, BMP, CBC, GFR #### [address] [address] Monocytes/100 WBC (Bld) 11.1 % Normal 2.0-13.0 [facility] Comment on above: Performed By: #### A DIFF, ANEU, BMP, CBC, GFR #### [address] [address] Neutrophils/100 WBC (Bld) 69.5 % Normal 50.0-75.0 [facility] Comment on above: Performed By: #### A DIFF, ANEU, BMP, CBC, GFR #### [address] [address] .GFRon 10-17-2024 Estimated Glomerular Filtration Rate 113 ml/min/1.73sqm Normal [facility] Comment on above: Result Comment: [...] A DIFF, ANEU, BMP, CBC, GFR #### [address] [address] .NEUABSon 10-17-2024 Neutrophil, Absolute 3.7 10 3/mcL Normal 2.3-8.1 [facility] Comment on above: Performed By: #### A DIFF, ANEU, BMP, CBC, GFR #### [address] [address] BMPon 10-17-2024 BUN/Creatinine Ratio 7.7 ratio Low 10.0-22.0 [facility] Comment on above: Performed By: #### A DIFF, ANEU, BMP, CBC, GFR #### [address] [address] Calcium [Mass/Vol] 8.5 mg/dL Low 8.7-10.4 [facility] Comment on above: Performed By: #### A DIFF, ANEU, BMP, CBC, GFR #### [address] [address] Chloride [Moles/Vol] 101 mmol/L Normal 98-110 [facility] Comment on above: Performed By: #### A DIFF, ANEU, BMP, CBC, GFR #### [address] [address] CO2 [Moles/Vol] 31 mmol/L Normal 22-32 [facility] Comment on above: Performed By: #### A DIFF, ANEU, BMP, CBC, GFR #### [address] [address] Creatinine [Mass/Vol] 0.65 mg/dL Normal 0.60-1.40 [facility] Comment on above: Result Comment: Test ing performed on [employer] analyzer using enzymatic creatinine methodology. Performed By: #### A DIFF, ANEU, BMP, CBC, GFR #### [address] [address] Electrolyte Balance 7.0 mEq/L Normal 4.0-15.0 [facility] Comment on above: Performed By: #### A DIFF, ANEU, BMP, CBC, GFR #### [address] [address] Glucose [Mass/Vol] 120 mg/dL High 70-110 [facility] Comment on above: Performed By: #### A DIFF, ANEU, BMP, CBC, GFR #### [address] [address] Potassium [Moles/Vol] 3.3 mmol/L Low 3.5-5.0 [facility] Comment on above: Performed By: #### A DIFF, ANEU, BMP, CBC, GFR #### [address] [address] Sodium [Moles/Vol] 139 mmol/L Normal 136-145 [facility] Comment on above: Performed By: #### A DIFF, ANEU, BMP, CBC, GFR #### [place] [address] Urea nitrogen [Mass/Vol] 5.0 mg/dL Low 8.0-22.0 [facility] Comment on above: Performed By: #### A DIFF, ANEU, BMP, CBC, GFR #### [place] [address] CBCon 10-17-2024 Erythrocyte distribution width (RBC) [Ratio] 17.0 % High 11.5-15.5 [facility] Comment on above: Performed By: #### A DIFF, ANEU, BMP, CBC, GFR #### [place] [address] Hematocrit (Bld) [Volume fraction] 40.3 % Normal 40.0-52.0 [facility] Comment on above: Performed By: #### A DIFF, ANEU, BMP, CBC, GFR #### [place] [address] Hgb 13.2 G/dL Normal 13.0-17.5 [facility] Comment on above: Performed By: #### A DIFF, ANEU, BMP, CBC, GFR #### [place] [address] MCH (RBC) [Entitic mass] 28.6 pg Normal 27.0-33.0 [facility] Comment on above: Performed By: #### A DIFF, ANEU, BMP, CBC, GFR #### [place] [address] MCHC 32.6 G/dL Normal 32.0-36.0 [facility] Comment on above: Performed By: #### A DIFF, ANEU, BMP, CBC, GFR #### [place] [address] MCV (RBC) [Entitic vol] 87.6 fL Normal 81.0-100.0 [facility] Comment on above: Performed By: #### A DIFF, ANEU, BMP, CBC, GFR #### [place] [id number] [place] [address] Platelet 132 10 3/mcL Low 150-450 [facility] Comment on above: Performed By: #### A DIFF, ANEU, BMP, CBC, GFR #### [facility] [address] [place] [address] Platelet mean volume (Bld) [Entitic vol] 7.8 fL Normal 6.4-10.5 [facility] Comment on above: Performed By: #### A DIFF, ANEU, BMP, CBC, GFR #### [facility] [address] [place] [address] RBC 4.60 10 6/mcL Normal 4.50-6.00 [facility] Comment on above: Performed By: #### A DIFF, ANEU, BMP, CBC, GFR #### [facility] [address] [place] [address] WBC 5.4 10 3/mcL Normal 4.5-10.8 [facility] Comment on above: Performed By: #### A DIFF, ANEU, BMP, CBC, GFR #### [place] [id number] [place] [address] ANKLE W/O CONTRAST RIGHTo n 10-17-2024 [...] spanning external fixator, multiplanar 10[facility] with dislocation. [...] 10/17/2024 1:17:29 PM Ordering Provider: SUZE MISHRA [facility] MAIN LABORATORYOrdered By: SYSTEM SYSTEM [...] Comment on above: Interpretive Data: Baljinder linn [employer] (CHEST, 1991, 102:[id number]) recommended therapeutic range for oral anticoagulant therapy is: LOW RISK: Prophylaxis of venous thrombosis INR: 2.0-3.0 Treatment of pulmonary embolism 2.0-3.0 Prevention of systemic embolism 2.0-3.0 HIGH RISK: Mechanical prosthetic valves 2.5-3.5 PROon 10-17-2024 INR Coag (PPP) [Relative time] 1.2 {INR} [facility] MAIN Comment on above: Result Comment: [employer] (CHEST, 1991, [id number]) recommended therapeutic range for oral anticoagulant therapy is: LOW RISK: Prophylaxis of venous thrombosis INR: 2.0-3.0 Treatment of pulmonary embolism 2.0-3.0 Prevention of systemic embolism 2.0-3.0 HIGH RISK: Mechanical prosthetic valves 2.5-3.5 Performed By: #### A DIFF, ANEU, BMP, CBC, GFR #### [address] [address] PT Coag (PPP) [Time] 13.7 s Normal 9.0-14.4 [facility] Comment on above: Result Comment: Effe ctive 12/11/07, Protime results may be affected by some antibiotics (i.e. Ciprofloxacin, Azithromycin, Bactrim) which may potentiate the action of oral anticoagulants, with further increases in Protime/INR. Performed By: #### A DIFF, ANEU, BMP, CBC, GFR #### [address] [address] XR FLUORO 1-2 HRS TECH TIMEo n [...] Intraoperative fluoroscopic images. Please refer to the jointer machine operator's report for further information. I have personally reviewed the images of this examination and agree with the resident's findings and interpretation. Interpreted by: Beau Wahl Preliminary Report By: Nadya Hudson Electronically signed By Beau Wahl Dictated Date: 10/17/2024 1:42:02 PM Prelim Date: 10/17/2024 2:15:08 PM Sign Date: 10/17/2024 2:15:08 PM Ordering Provider: NANI Kate [facility] .Auto Diffon 10-16-2024 Basophil, Absolute 0.1 10 3/mcL Normal 0.0-0.3 [facility] Comment on above: Performed By: #### C BC, MG, GFR, ADIFF, BMP, ANEU #### [address] [address] Basophils/100 WBC (Bld) 0.8 % Normal 0.0-2.5 [facility] Comment on above: Performed By: #### C BC, MG, GFR, ADIFF, BMP, ANEU #### [address] [address] Eosinophil, Absolute 0.1 10 3/mcL Normal 0.0-0.7 [facility] Comment on above: Performed By: #### C BC, MG, GFR, ADIFF, BMP, ANEU #### [address] [address] Eosinophils/100 WBC (Bld) 1.2 % Normal 0.0-6.0 [facility] Comment on above: Performed By: #### C BC, MG, GFR, ADIFF, BMP, ANEU #### [address] [address] Lymphocyte, Absolute 1.4 10 3/mcL Normal 0.9-4.3 [facility] Comment on above: Performed By: #### C BC, MG, GFR, ADIFF, BMP, ANEU #### [address] [address] Lymphocytes/100 WBC (Bld) 19.8 % Low 20.0-40.0 [facility] Comment on above: Performed By: #### C BC, MG, GFR, ADIFF, BMP, ANEU #### [address] [address] Monocyte, Absolute 0.7 10 3/mcL Normal 0.1-1.4 [facility] Comment on above: Performed By: #### C BC, MG, GFR, ADIFF, BMP, ANEU #### [address] [address] Monocytes/100 WBC (Bld) 10.7 % Normal 2.0-13.0 [facility] Comment on above: Performed By: #### C BC, MG, GFR, ADIFF, BMP, ANEU #### [address] [address] Neutrophils/100 WBC (Bld) 67.5 % Normal 50.0-75.0 [facility] Comment on above: Performed By: #### C BC, MG, GFR, ADIFF, BMP, ANEU #### [address] [address] Basophil, Absolute 0.0 10 3/mcL Normal 0.0-0.3 [facility] Comment on above: Performed By: #### C BC, MG, GFR, ADIFF, BMP, ANEU #### [address] [address] Basophils/100 WBC (Bld) 0.7 % Normal 0.0-2.5 [facility] Comment on above: Performed By: #### C BC, MG, GFR, ADIFF, BMP, ANEU #### [address] [address] Eosinophil, Absolute 0.1 10 3/mcL Normal 0.0-0.7 [facility] Comment on above: Performed By: #### C BC, MG, GFR, ADIFF, BMP, ANEU #### [address] [address] Eosinophils/100 WBC (Bld) 0.8 % Normal 0.0-6.0 [facility] Comment on above: Performed By: #### C BC, MG, GFR, ADIFF, BMP, ANEU #### [address] [address] Lymphocyte, Absolute 1.1 10 3/mcL Normal 0.9-4.3 [facility] Comment on above: Performed By: #### C BC, MG, GFR, ADIFF, BMP, ANEU #### [address] [address] Lymphocytes/100 WBC (Bld) 17.2 % Low 20.0-40.0 [facility] Comment on above: Performed By: #### C BC, MG, GFR, ADIFF, BMP, ANEU #### [address] [address] Monocyte, Absolute 0.6 10 3/mcL Normal 0.1-1.4 [facility] Comment on above: Performed By: #### C BC, MG, GFR, ADIFF, BMP, ANEU #### [address] [address] Monocytes/100 WBC (Bld) 8.7 % Normal 2.0-13.0 [facility] Comment on above: Performed By: #### C BC, MG, GFR, ADIFF, BMP, ANEU #### [place] [id number] [place] [address] Neutrophils/100 WBC (Bld) 72.6 % Normal 50.0-75.0 [facility] Comment on above: Performed By: #### C BC, MG, GFR, ADIFF, BMP, ANEU #### [address] [address] .GFRon 10-16-2024 Estimated Glomerular Filtration Rate 110 ml/min/1.73sqm [facility] Comment on above: Result [...] A DIFF, ANEU, BMP, CBC, GFR #### [address] [address] Estimated Glomerular Filtration Rate 111 ml/min/1.73sqm [facility] Comment on above: Result [...] GFR, ADIFF, BMP, ANEU #### [place] [id number] .MDWon 10-16-2024 Monocyte Distribution Width 19.45 Normal 0.00-20.00 [facility] Comment on above: Result Comment: For ED adult patients suspected of sepsis, MDW<=20.0 does not rule out sepsis or risk of sepsis Performed By: #### C BC, MG, GFR, ADIFF, BMP, ANEU #### [place] [address] Monocyte Distribution Width 17.52 Normal 0.00-20.00 [facility] Comment on above: Result Comment: For ED adult patients suspected of sepsis, MDW<=20.0 does not rule out sepsis or risk of sepsis Performed By: #### C BC, MG, GFR, ADIFF, BMP, ANEU #### [place] [address] .NEUABSon 10-16-2024 Neutrophil, Absolute 4.7 10 3/mcL Normal 2.3-8.1 [facility] Comment on above: Performed By: #### C BC, MG, GFR, ADIFF, BMP, ANEU #### [place] [address] Neutrophil, Absolute 4.7 10 3/mcL Normal 2.3-8.1 [facility] Comment on above: Performed By: #### C BC, MG, GFR, ADIFF, BMP, ANEU #### [place] [address] ABO/Rh (Gel)on 10-16-2024 ABO/Rh Interp Positive Invalid Interpretation Code [facility] Comment on above: Performed By: #### A DIFF, ANEU, BMP, CBC, GFR #### [place] [address] ABS (Gel)on 10-16-2024 ABSC Interp (Gel) Negative Normal [facility] Comment on above: Performed By: #### A DIFF, ANEU, BMP, CBC, GFR #### [facility] [address] [place] [address] Stefanie 10-16-2024 Ethanol Level <10.0 Normal [facility] Comment on above: Performed By: #### C BC, MG, GFR, ADIFF, BMP, ANEU #### [facility] [address] [place] [address] ANKLE COMPLETE RTon 10-17-19 25 ANKLE COMPLETE RT [address] [address] Patient: CARLOS ALBERTO KELLEY Phone#: : 1970 Age: 54 Gender: M Pt. Type: ER Account: [id number] Location: [facility] Ordering: JAKE MAXWELL Exam Date: 10/16/2024/13:23 Family Phys: Charge Code: 947737 Physician: Upson Order #: [id number] Dose#: PROCEDURE: X-RAY ANKLE COMPLETE RT MIN [...] Bagley MD on 10/16/2024 at 14:15 [facility] BUN/Creatinine Ratio 15.9 ratio Normal 10.0-22.0 [facility] Comment on above: Performed By: #### C BC, MG, GFR, ADIFF, BMP, ANEU #### [address] [address] Calcium [Mass/Vol] 9.4 mg/dL Normal 8.7-10.4 [facility] Comment on above: Performed By: #### C BC, MG, GFR, ADIFF, BMP, ANEU #### [address] [address] Chloride [Moles/Vol] 103 mmol/L Normal 98-110 [facility] Comment on above: Performed By: #### C BC, MG, GFR, ADIFF, BMP, ANEU #### [address] [address] CO2 [Moles/Vol] 32 mmol/L Normal 22-32 [facility] Comment on above: Performed By: #### C BC, MG, GFR, ADIFF, BMP, ANEU #### [address] [address] Creatinine [Mass/Vol] 0.69 mg/dL Normal 0.60-1.40 [facility] Comment on above: Result Comment: Test ing performed on [employer] analyzer using enzymatic creatinine methodology. Performed By: #### C BC, MG, GFR, ADIFF, BMP, ANEU #### [address] [address] Electrolyte Balance 5.0 mEq/L Normal 4.0-15.0 [facility] Comment on above: Performed By: #### C BC, MG, GFR, ADIFF, BMP, ANEU #### [address] [address] Glucose [Mass/Vol] 94 mg/dL Normal 70-110 [facility] Comment on above: Performed By: #### C BC, MG, GFR, ADIFF, BMP, ANEU #### [address] [address] Potassium [Moles/Vol] 3.6 mmol/L Normal 3.5-5.0 [facility] Comment on above: Performed By: #### C BC, MG, GFR, ADIFF, BMP, ANEU #### [place] [address] Sodium [Moles/Vol] 140 mmol/L Normal 136-145 [facility] Comment on above: Performed By: #### C BC, MG, GFR, ADIFF, BMP, ANEU #### [place] [address] Urea nitrogen [Mass/Vol] 11.0 mg/dL Normal 8.0-22.0 [facility] Comment on above: Performed By: #### C BC, MG, GFR, ADIFF, BMP, ANEU #### [place] [address] CBCon 10-16-2024 Erythrocyte distribution width (RBC) [Ratio] 16.5 % High 11.5-15.5 [facility] Comment on above: Performed By: #### C BC, MG, GFR, ADIFF, BMP, ANEU #### [place] [address] Hematocrit (Bld) [Volume fraction] 45.2 % Normal 40.0-52.0 [facility] Comment on above: Performed By: #### C BC, MG, GFR, ADIFF, BMP, ANEU #### [place] [address] Hgb 14.8 G/dL Normal 13.0-17.5 [facility] Comment on above: Performed By: #### C BC, MG, GFR, ADIFF, BMP, ANEU #### [place] [address] MCH (RBC) [Entitic mass] 28.8 pg Normal 27.0-33.0 [facility] Comment on above: Performed By: #### C BC, MG, GFR, ADIFF, BMP, ANEU #### [place] [address] MCHC 32.8 G/dL Normal 32.0-36.0 [facility] Comment on above: Performed By: #### C BC, MG, GFR, ADIFF, BMP, ANEU #### [place] [id number] MCV (RBC) [Entitic vol] 87.8 fL Normal 81.0-100.0 [facility] Comment on above: Performed By: #### C BC, MG, GFR, ADIFF, BMP, ANEU #### [place] [address] Platelet 172 10 3/mcL Normal 150-450 [facility] Comment on above: Performed By: #### C BC, MG, GFR, ADIFF, BMP, ANEU #### [place] [address] Platelet mean volume (Bld) [Entitic vol] 7.9 fL Normal 6.4-10.5 [facility] Comment on above: Performed By: #### C BC, MG, GFR, ADIFF, BMP, ANEU #### [place] [address] RBC 5.14 10 6/mcL Normal 4.50-6.00 [facility] Comment on above: Performed By: #### C BC, MG, GFR, ADIFF, BMP, ANEU #### [place] [address] WBC 6.9 10 3/mcL Normal 4.5-10.8 [facility] Comment on above: Performed By: #### C BC, MG, GFR, ADIFF, BMP, ANEU #### [place] [address] Erythrocyte distribution width (RBC) [Ratio] 17.1 % High 11.5-15.5 [facility] Comment on above: Performed By: #### C BC, MG, GFR, ADIFF, BMP, ANEU #### [place] [address] Hematocrit (Bld) [Volume fraction] 43.2 % Normal 40.0-52.0 [facility] Comment on above: Performed By: #### C BC, MG, GFR, ADIFF, BMP, ANEU #### [place] [address] Hgb 14.3 G/dL Normal 13.0-17.5 [facility] Comment on above: Performed By: #### C BC, MG, GFR, ADIFF, BMP, ANEU #### [place] [address] MCH (RBC) [Entitic mass] 28.9 pg Normal 27.0-33.0 [facility] Comment on above: Performed By: #### C BC, MG, GFR, ADIFF, BMP, ANEU #### [place] [address] MCHC 33.0 G/dL Normal 32.0-36.0 [facility] Comment on above: Performed By: #### C BC, MG, GFR, ADIFF, BMP, ANEU #### [place] [address] MCV (RBC) [Entitic vol] 87.4 fL Normal 81.0-100.0 [facility] Comment on above: Performed By: #### C BC, MG, GFR, ADIFF, BMP, ANEU #### [place] [address] Platelet 152 10 3/mcL Normal 150-450 [facility] Comment on above: Performed By: #### C BC, MG, GFR, ADIFF, BMP, ANEU #### [place] [address] Platelet mean volume (Bld) [Entitic vol] 7.7 fL Normal 6.4-10.5 [facility] Comment on above: Performed By: #### C BC, MG, GFR, ADIFF, BMP, ANEU #### [place] [address] RBC 4.94 10 6/mcL Normal 4.50-6.00 [facility] Comment on above: Performed By: #### C BC, MG, GFR, ADIFF, BMP, ANEU #### [place] [address] WBC 6.5 10 3/mcL Normal 4.5-10.8 [facility] Comment on above: Performed By: #### C BC, MG, GFR, ADIFF, BMP, ANEU #### [place] [address] CBC + DIFFon 10-16-2024 Baso # 0.01 x10EE3/UL Normal 0.00 - 0.10 [facility] Comment on above: Performed By: #### 2 [address]14 #### [facility],[address] [place] [address] Basophils/100 WBC (Bld) 0.2 % Normal 0.0 - 2.0 [facility] Comment on above: Performed By: #### 2 10782 #### [facility],[address] [place] [address] CBC + DIFF Normal [facility] Comment on above: Result Comment: CBC- COMPLETE BLOOD COUNT Performed By: #### 2 29346 #### [facility],[address] [place] [address] EO # 0.04 x10EE3/UL Normal 0.00 - 0.50 [facility] Comment on above: Performed By: #### 2 28893 #### [facility],[address] [place] [address] Eosinophils/100 WBC (Bld) 0.7 % Normal 0.0 - 7.0 [facility] Comment on above: Performed By: #### 2 63466 #### [facility],[address] [place], [place] [address] Erythrocyte distribution width (RBC) [Ratio] 15.2 % Normal 12.0 - 15.6 [facility] Comment on above: Performed By: #### 2 06385 #### [facility],[address] [place] [address] Hematocrit (Bld) [Volume fraction] 44.1 % Normal 40.0 - 52.0 [facility] Comment on above: Performed By: #### 2 58729 #### [facility],[address] [place] [address] Hemoglobin (Bld) [Mass/Vol] 15.4 g/dL Normal 13.0 - 17.5 [facility] Comment on above: Performed By: #### 2 06656 #### [facility],[address] [place] [address] Lymph # 0.96 x10EE3/UL Normal 0.80 - 2.80 [facility] Comment on above: Performed By: #### 2 14485 #### [facility],[address] [place] [address] Lymphocytes/100 WBC (Bld) 17.1 % Low 20.0 - 45.0 [facility] Comment on above: Performed By: #### 2 08369 #### [facility],[address] [place] [address] MANUAL DIFF N/A Normal [facility] Comment on above: Performed By: #### 2 11108 #### [facility],[address] [place], [place] [address] MCH (RBC) [Entitic mass] 31 pg Normal 27 - 33 [facility] Comment on above: Performed By: #### 2 28435 #### [facility],[address] [place] [address] MCHC 35 X10 3 Normal 32 - 36 [facility] Comment on above: Performed By: #### 2 72016 #### [facility],[address] [place] [address] MCV (RBC) [Entitic vol] 88 fL Normal 81 - 98 [facility] Comment on above: Performed By: #### 2 08602 #### [facility],[address] [place] [address] [place] # 0.47 x10EE3/UL Normal 0.20 - 1.00 [facility] Comment on above: Performed By: #### 2 68704 #### [facility],[address] [place] [address] MONOS % 8.4 % Normal 0.0 - 10.0 [facility] Comment on above: Performed By: #### 2 77216 #### [facility],[address] [place] [address] Morphology Rocky (Bld) [Interp] N/A Normal [facility] Comment on above: Performed By: #### 2 21860 #### [facility],[address] [place] [address] Neut # 4.12 x10EE3/UL Normal 1.50 - 7.10 [facility] Comment on above: Performed By: #### 2 82919 #### [facility],[address] [place] [address] Neutrophils/100 WBC (Bld) 73.6 % Normal 46.0 - 76.0 [facility] Comment on above: Performed By: #### 2 20362 #### [facility],[address] [place] [address] PLATELET 148 x10EE3/UL Low 150 - 450 [facility] Comment on above: Performed By: #### 2 49504 #### [facility],[address] [place] [address] Platelet mean volume (Bld) [Entitic vol] 8.1 fL Normal 6.4 - 10.5 [facility] Comment on above: Result Comment: AUTO MATED DIFFERENTIAL Performed By: #### 2 84837 #### [facility],[address] [place] [address] RBC 5.02 x 10EE6/UL Normal 4.50 - 6.00 [facility] Comment on above: Performed By: #### 2 47686 #### [facility],[address] [place] [address] WBC 5.6 x 10EE3/UL Normal 4.5 - 10.8 [facility] Comment on above: Performed By: #### 2 18028 #### [facility],[address] [place] [address] CMPon 10-16-2024 Albumin Level 3.6 G/dL Normal 3.2-4.8 [facility] Comment on above: Performed By: #### A DIFF, ANEU, BMP, CBC, GFR #### [address] [address] Albumin/Globulin [Mass ratio] 1.0 {ratio} Normal 0.9-1.6 [facility] Comment on above: Performed By: #### A DIFF, ANEU, BMP, CBC, GFR #### [address] [address] ALP [Catalytic activity/Vol] 70 U/L Normal 38-126 [facility] Comment on above: Performed By: #### A DIFF, ANEU, BMP, CBC, GFR #### [address] [address] ALT [Catalytic activity/Vol] 12 U/L Normal 12-55 [facility] Comment on above: Performed By: #### A DIFF, ANEU, BMP, CBC, GFR #### [address] [address] AST [Catalytic activity/Vol] 17 U/L Normal 8-34 [facility] Comment on above: Performed By: #### A DIFF, ANEU, BMP, CBC, GFR #### [address] [address] Bili Total 0.60 mg/dL Normal 0.20-1.20 [facility] Comment on above: Result Comment: Use of this assay is not recommended for patients undergoing treatment with eltrombopag due to the potential for falsely elevated results. Performed By: #### A DIFF, ANEU, BMP, CBC, GFR #### [address] [address] BUN/Creatinine Ratio 14.1 ratio Normal 10.0-22.0 [facility] Comment on above: Performed By: #### A DIFF, ANEU, BMP, CBC, GFR #### [address] [address] Calcium [Mass/Vol] 9.0 mg/dL Normal 8.7-10.4 [facility] Comment on above: Performed By: #### A DIFF, ANEU, BMP, CBC, GFR #### [address] [address] Chloride [Moles/Vol] 102 mmol/L Normal 98-110 [facility] Comment on above: Performed By: #### A DIFF, ANEU, BMP, CBC, GFR #### [address] [address] CO2 [Moles/Vol] 33 mmol/L High 22-32 [facility] Comment on above: Performed By: #### A DIFF, ANEU, BMP, CBC, GFR #### [place] [id number] Creatinine [Mass/Vol] 0.71 mg/dL Normal 0.60-1.40 [facility] Comment on above: Result Comment: Test ing performed on [employer] analyzer using enzymatic creatinine methodology. Performed By: #### A DIFF, ANEU, BMP, CBC, GFR #### [place] [id number] Electrolyte Balance 4.0 mEq/L Normal 4.0-15.0 [facility] Comment on above: Performed By: #### A DIFF, ANEU, BMP, CBC, GFR #### [address] [address] Globulin 3.5 G/dL Normal 2.5-4.2 [facility] Comment on above: Performed By: #### A DIFF, ANEU, BMP, CBC, GFR #### [address] [address] Glucose [Mass/Vol] 109 mg/dL Normal 70-110 [facility] Comment on above: Performed By: #### A DIFF, ANEU, BMP, CBC, GFR #### [address] [address] Potassium [Moles/Vol] 3.7 mmol/L Normal 3.5-5.0 [facility] Comment on above: Performed By: #### A DIFF, ANEU, BMP, CBC, GFR #### [address] [address] Sodium [Moles/Vol] 139 mmol/L Normal 136-145 [facility] Comment on above: Performed By: #### A DIFF, ANEU, BMP, CBC, GFR #### [facility] [address] [place] [address] Total Protein 7.1 G/dL Normal 5.7-8.2 [facility] Comment on above: Performed By: #### A DIFF, ANEU, BMP, CBC, GFR #### [facility] [address] [place] [address] Urea nitrogen [Mass/Vol] 10.0 mg/dL Normal 8.0-22.0 [facility] Comment on above: Performed By: #### A DIFF, ANEU, BMP, CBC, GFR #### [address] [address] CMP with eGFRon 10-16-2024 AGE 54 years Normal [facility] Comment on above: Performed By: #### 2 26835 ####[facility],[address] [place] [address] Albumin [Mass/Vol] 3.4 g/dL Normal 3.4 - 5.0 [facility] Comment on above: Performed By: #### 2 12769 ####[facility],[address] [place] [address] Albumin/Globulin [Mass ratio] 0.9 {ratio} Normal 0.9 - 1.6 [facility] Comment on above: Performed By: #### 2 23454 ####[facility],[address] [place] [address] ALK PHOS 76 U/L Normal 46 - 116 [facility] Comment on above: Performed By: #### 2 78393 ####[facility],[address] [place] [address]687 ALT [Catalytic activity/Vol] 17 U/L Normal 16 - 63 [facility] Comment on above: Performed By: #### 2 33956 ####[facility],[address] [place] [address] Anion gap [Moles/Vol] 11 mmol/L Normal 10 - 20 [facility] Comment on above: Performed By: #### 2 51922 ####[facility],[address] [place] [address] AST [Catalytic activity/Vol] 17 U/L Normal 15 - 37 [facility] Comment on above: Performed By: #### 2 67055 ####[facility],[address] [place] [address]20 B/C RATIO 13 ratio Normal 0 - 30 [facility] Comment on above: Performed By: #### 2 76005 ####[facility],[address] [place] [address] Bilirubin [Mass/Vol] 0.5 mg/dL Normal 0.2 - 1.0 [facility] Comment on above: Performed By: #### 2 73149 ####[facility],[address] [place] [address] Calcium [Mass/Vol] 8.9 mg/dL Normal 8.5 - 10.1 [facility] Comment on above: Performed By: #### 2 75874 ####[facility],[address] [place] [address] 26072 Chloride [Moles/Vol] 101 mmol/L Normal 98 - 107 [facility] Comment on above: Performed By: #### 2 72267 ####[facility],[address] [place] [address]36 CMP with eGFR Normal [facility] Comment on above: Result Comment: COMP REHENSIVE METABOLIC PANEL Performed By: #### 2 94570 ####[facility],[address] [place] [address]98 CO2 [Moles/Vol] 30.7 mmol/L Normal 21.0 - 32.0 [facility] Comment on above: Performed By: #### 2 83028 ####[facility],[address] [place] [address] Creatinine [Mass/Vol] 0.96 mg/dL Normal 0.70 - 1.30 [facility] Comment on above: Performed By: #### 2 75345 ####[facility],[address] [place] [address] GFR/1.73 sq M.predicted among non-blacks MDRD (S/P/Bld) [Vol rate/Area] mL/min/{1.73_m2} Normal 60 - 999 [facility] Comment on above: Performed By: #### 2 88192 ####[facility],[address] [place] [address]651 Result Comment: ACCO RDING TO THE NATIONAL KIDNEY DISEASE EDUCATION PROGRAM(NKDE), A NORMAL eGFR IS A VALUE GREATER THAN OR EQUAL TO 60 ML/MIN/1.73 SQ METERS. CHRONIC KIDNEY DISEASE: <60mL/MIN/1.73 SQ METERS KIDNEY FAILURE: <15mL/MIN/1.73 SQ METERS THIS TEST SHOULD ONLY BE USED FOR PATIENTS 18 YEARS OF AGE AND OLDER. Globulin (S) [Mass/Vol] 3.7 g/dL Normal 1.5 - 3.8 [facility] Comment on above: Performed By: #### 2 32491 ####[facility],[address] [place] [address]194 Glucose [Mass/Vol] 94 mg/dL Normal 74 - 106 [facility] Comment on above: Performed By: #### 2 93979 ####[facility],[address] [place] [address]25 Potassium [Moles/Vol] 3.6 mmol/L Normal 3.5 - 5.1 [facility] Comment on above: Performed By: #### 2 64332 ####[facility],[address] [place] [address] Protein [Mass/Vol] 7.1 g/dL Normal 6.4 - 8.2 [facility] Comment on above: Performed By: #### 2 44532 ####[facility],[address] [place] [address]69 Sodium [Moles/Vol] 139 mmol/L Normal 136 - 145 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 1 of 1 Normal [facility] ED NURSES CLINICAL NOTEon ED NURSES CLINICAL NOTE Nurse Narrative Nurse Clinical Narrative [address] [address] [id number] 10/16/2024 12:34:00 Patient: CARLOS ALBERTO KELLEY Sex: Male : 1970 Age: 54y Disposition: Transfer to [facility] Disposition Decision Time: 14:27 10/16/2024 Departure Time: [...] had swelling, redness and trouble walking. 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 SEPSIS SCREEN: NEGATIVE. SIRS criteria negative. [...] 12:51 10/16/24 EKTAT Silvina Maguire R.N. Allergies: [id number] Reductase Inhibitors -- 12:40 10/16/24 EKTAT Silvina [...] 10/16/24. E (more content not included)... Normal [facility] ED ORDER SHEET (CPOE ONLY)on 10-16-2024 ED ORDER SHEET (CPOE ONLY) Order Sheet Order Sheet [place] [address] [place] [address] [id number] 10/16/2024 Patient: CARLOS ALBERTO KELLEY Sex: Male : 1970 Age: 54y MEASUREMENTS: Wt: 140.2 kg, Ht/Wilson: 69.0 in, BMI: 45.63 ALLERGIES: Fdtgqim-JAS-KjJ Reductase Inhibitors MEDICATION/IV/DRIP/FL UID ORDERS Order Description [...] (10/16/2024 15:18 EDT)] 3 of 3 Normal [facility] ED PHYSICIAN CLINICAL REPORT on 10-16-2024 ED PHYSICIAN CLINICAL REPORT Narrative Physician Clinical [address] [address] [id number] 10/16/2024 12:34:00 Patient: CARLOS ALBERTO KELLEY Sex: Male : 1970 Age: 54y Disposition: Transfer to [facility] Decision Time: 14:27 10/16/2024 Measurements Wt: 140.2 [...] 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 Normal [facility] ED SUPER BILLon 10-16-2024 ED SUPER BILL [address] [address] [phone] 10/16/2024 Patient: CARLOS ALBERTO KELLEY Sex: Male : 1970 Age: 54y Facility Professional Category Item Description Code Code Quantity Fee Total Nurse/E/M EMERGENCY 753272 1 $0.00 $0.00 DEPT VISIT HIGH SEVERITYFUNCJ (80033-86) Nurse/IV/IM/Infusions IVP initial (76450) 749678 1 $0.00 $0.00 Grand $0.00 Total Providers Jake Maxwell M.D. Jake Maxwell M.D. Chief Complaint Injury to right foot and right ankle. Principal Diagnosis Closed displaced, severely angulated right bimalleolar fracture. 1 of 2 [facility] ICD-10 Codes S82.841A: Displaced bimalleolar fracture of right lower leg, initial encounter for closed fracture 2 of 2 Normal [facility] ED VISIT SUMMARYon ED VISIT SUMMARY Visit Overview Visit Overview [address] [address] [id number] 10/16/2024 Patient: CARLOS ALBERTO KELLEY Sex: Male : 1970 Age: 54y 10/16/2024 07:42 PM EDT ED Arrival:12:34 10/16/2024 EDT Status: Recent Travel:no Language:eng Adv Directive:No Isolation Status: Ethnicity:N Fall Risk:risk Infectious Disease Exposure:no Measurements:5'9" / 175.3 Self-Harm Status:risk Sepsis Screen:negative cm 309.0 lb / 140.2 kg Chief Complaint:RIGHT LOWER EXTREMITY PAIN, RIGHT LOWER EXTREMITY REDNESS, and RIGHT LOWER EXTREMITY SWELLING ALLERGIES Ocpueyk-JGI-WiP Reductase Inhibitors HOME MEDICATIONS albuterol sulfate 2.5 [...] RIGHT BIMALLEOLAR FRACTURE 4 of 4 Normal [facility] ED VITALS FLOW SHEETon 10-16 ED VITALS FLOW SHEET Vitals Vital Sign Flow Sheet [address] [place] [address] [phone] 10/16/2024 Patient: CARLOS ALBERTO KELLEY Sex: Male [...] 98.9 F 10 2 of 2 Normal [facility] FOOT COMPLETE RTon FOOT COMPLETE RT [place] [address] Patient: CARLOS ALBERTO KELLEY Phone#: : 1970 Age: 54 Gender: M Pt. Type: ER Account: [id number] Location: [facility] Ordering: JAKE MAXWELL Exam Date: 10/16/2024/13:00 Family Phys: Charge Code: 336003 Physician: Upson Order #: [id number] Dose#: PROCEDURE: X-RAY FOOT RT COMPLETE MIN [...] Bagley MD on 10/16/2024 at 14:23 Normal [facility] LABORATORYOrdered By: SYSTEM SYSTEM on 10-16-2024 [...] [Moles/Vol] 1.1 mmol/L Normal 0.4 - 2.0 [facility] Comment on above: Performed By: #### 2 [id number] #### [facility],[address] [place] [address] NT-proBNPon 10-16-2024 Natriuretic peptide B (Bld) [Mass/Vol] 291 pg/mL High 0 - 125 [facility] Comment on above: Performed By: #### 2 46451 #### [facility],[address] [place] [address] PROTHROMBIN TIME AND INRon 0 10-16-2024 INR Coag (PPP) [Relative time] 1.4 {INR} High 0.8 - 1.2 [facility] Comment on above: Result Comment: T [...] MECHANICAL HEART VALVES Performed By: #### 2 11140 ####[facility],[address] [place], [place] [id number] PROTHROMBIN TIME AND INR Normal [facility] Comment on above: Result Comment: PROT HROMBIN TIME AND INR Performed By: #### 2 28548 ####[facility],[address] [place] [address] PT-COUMADIN 15.9 sec High 9.3 - 14.1 [facility] Comment on above: Performed By: #### 2 03529 ####[facility],[address] [place], [place] [id number] TIBIA-FIBULA RTon 10-16-2024 TIBIA-FIBULA RT [place] [address] Patient: CARLOS ALBERTO KELLEY Phone#: : 1970 Age: 54 Gender: M Pt. Type: ER Account: [id number] Location: [facility] Ordering: JAKE MAXWELL Exam Date: 10/16/2024/13:23 Family Phys: Charge Code: 325774 Physician: Upson Order #: [id number] Dose#: PROCEDURE: X-RAY TIB FIB RT 2 [...] Corrine Bagley MD on 10/16/2024 at 14:12 [facility] XR ANKLE MINIMUM 3 VIEWS LEF [...] Date: 10/16/2024 9:20:54 PM Ordering Provider: RIC RAELLANO [facility] MAIN XR ANKLE MINIMUM 3 [...] PM Ordering Provider: EM GARCIA [facility] MAIN XR ANKLE MINIMUM 3 [...] 10/16/2024 6:28:12 PM Ordering Provider: EM Kate [facility] .Auto Diffon 10-04-2024 Basophil, Absolute 0.0 10 3/mcL Normal 0.0-0.3 [facility] Comment on above: Performed By: #### A DIFF, ANEU, BMP, CBC, GFR #### [address] [address] Basophils/100 WBC (Bld) 0.9 % Normal 0.0-2.5 [facility] Comment on above: Performed By: #### A DIFF, ANEU, BMP, CBC, GFR #### [address] [address] Eosinophil, Absolute 0.1 10 3/mcL Normal 0.0-0.7 [facility] Comment on above: Performed By: #### A DIFF, ANEU, BMP, CBC, GFR #### [address] [address] Eosinophils/100 WBC (Bld) 1.9 % Normal 0.0-6.0 [facility] Comment on above: Performed By: #### A DIFF, ANEU, BMP, CBC, GFR #### [address] [address] Lymphocyte, Absolute 1.0 10 3/mcL Normal 0.9-4.3 [facility] Comment on above: Performed By: #### A DIFF, ANEU, BMP, CBC, GFR #### [address] [address] Lymphocytes/100 WBC (Bld) 24.9 % Normal 20.0-40.0 [facility] Comment on above: Performed By: #### A DIFF, ANEU, BMP, CBC, GFR #### [address] [place], [place] [address] Monocyte, Absolute 0.3 10 3/mcL Normal 0.1-1.4 [facility] Comment on above: Performed By: #### A DIFF, ANEU, BMP, CBC, GFR #### [address] [address] Monocytes/100 WBC (Bld) 7.5 % Normal 2.0-13.0 [facility] Comment on above: Performed By: #### A DIFF, ANEU, BMP, CBC, GFR #### [address] [address] Neutrophils/100 WBC (Bld) 64.8 % Normal 50.0-75.0 [facility] Comment on above: Performed By: #### A DIFF, ANEU, BMP, CBC, GFR #### [address] [address] .GFRon 10-04-2024 Estimated Glomerular Filtration Rate 107 ml/min/1.73sqm Normal [facility] Comment on above: Result Comment: [...] A DIFF, ANEU, BMP, CBC, GFR #### [address] [address] .NEUABSon 10-04-2024 Neutrophil, Absolute 2.5 10 3/mcL Normal 2.3-8.1 [facility] Comment on above: Performed By: #### A DIFF, ANEU, BMP, CBC, GFR #### [address] [address] BMPon 10-04-2024 BUN/Creatinine Ratio 6.5 ratio Low 10.0-22.0 [facility] Comment on above: Performed By: #### A DIFF, ANEU, BMP, CBC, GFR #### [address] [address] Calcium [Mass/Vol] 8.5 mg/dL Low 8.7-10.4 [facility] Comment on above: Performed By: #### A DIFF, ANEU, BMP, CBC, GFR #### [address] [address] Chloride [Moles/Vol] 102 mmol/L Normal 98-110 [facility] Comment on above: Performed By: #### A DIFF, ANEU, BMP, CBC, GFR #### [address] [address] CO2 [Moles/Vol] 31 mmol/L Normal 22-32 [facility] Comment on above: Performed By: #### A DIFF, ANEU, BMP, CBC, GFR #### [address] [address] Creatinine [Mass/Vol] 0.77 mg/dL Normal 0.60-1.40 [facility] Comment on above: Result Comment: Test ing performed on [employer] analyzer using enzymatic creatinine methodology. Performed By: #### A DIFF, ANEU, BMP, CBC, GFR #### [address] [address] Electrolyte Balance 6.0 mEq/L Normal 4.0-15.0 [facility] Comment on above: Performed By: #### A DIFF, ANEU, BMP, CBC, GFR #### [address] [address] Glucose [Mass/Vol] 108 mg/dL Normal 70-110 [facility] Comment on above: Performed By: #### A DIFF, ANEU, BMP, CBC, GFR #### [address] [address] Potassium [Moles/Vol] 3.5 mmol/L Normal 3.5-5.0 [facility] Comment on above: Performed By: #### A DIFF, ANEU, BMP, CBC, GFR #### [address] [address] Sodium [Moles/Vol] 139 mmol/L Normal 136-145 [facility] Comment on above: Performed By: #### A DIFF, ANEU, BMP, CBC, GFR #### [address] [address] Urea nitrogen [Mass/Vol] 5.0 mg/dL Low 8.0-22.0 [facility] Comment on above: Performed By: #### A DIFF, ANEU, BMP, CBC, GFR #### [address] [address] CBCon 10-04-2024 Erythrocyte distribution width (RBC) [Ratio] 17.1 % High 11.5-15.5 [facility] Comment on above: Performed By: #### A DIFF, ANEU, BMP, CBC, GFR #### [place] [address] Hematocrit (Bld) [Volume fraction] 42.5 % Normal 40.0-52.0 [facility] Comment on above: Performed By: #### A DIFF, ANEU, BMP, CBC, GFR #### [place] [id number] Hgb 13.8 G/dL Normal 13.0-17.5 [facility] Comment on above: Performed By: #### A DIFF, ANEU, BMP, CBC, GFR #### [place] [id number] MCH (RBC) [Entitic mass] 28.4 pg Normal 27.0-33.0 [facility] Comment on above: Performed By: #### A DIFF, ANEU, BMP, CBC, GFR #### [place] [id number] MCHC 32.6 G/dL Normal 32.0-36.0 [facility] Comment on above: Performed By: #### A DIFF, ANEU, BMP, CBC, GFR #### [place] [address] MCV (RBC) [Entitic vol] 87.2 fL Normal 81.0-100.0 [facility] Comment on above: Performed By: #### A DIFF, ANEU, BMP, CBC, GFR #### [address] [address] Platelet 120 10 3/mcL Low 150-450 [facility] Comment on above: Performed By: #### A DIFF, ANEU, BMP, CBC, GFR #### [place] [id number] [place] [address] Platelet mean volume (Bld) [Entitic vol] 7.4 fL Normal 6.4-10.5 [facility] Comment on above: Performed By: #### A DIFF, ANEU, BMP, CBC, GFR #### [place] [id number] RBC 4.87 10 6/mcL Normal 4.50-6.00 [facility] Comment on above: Performed By: #### A DIFF, ANEU, BMP, CBC, GFR #### [place] [id number] WBC 3.8 10 3/mcL Low 4.5-10.8 [facility] Comment on above: Performed By: #### A DIFF, ANEU, BMP, CBC, GFR #### [place] [address] LABORATORYOrdered By: dAenike Swain on 10-04-2024 Blood Glucose Testing Reason Routine (10/04/24 7:18 AM) [facility] Glucose [Mass/Vol] 100 mg/dL Normal 70 - 110 mg/dL [facility] LABORATORYOrdered By: SYSTEM SYSTEM on [...] above: Interpretive Data: T esting performed on [employer] analyzer using enzymatic creatinine methodology. Electrolyte Balance [...] 10-04-2024 Magnesium [Mass/Vol] 1.9 mg/dL Normal 1.6-2.4 [facility] Comment on above: Performed By: #### A DIFF, ANEU, BMP, CBC, GFR #### [address] [address] .Auto Diffon 10-03-2024 Basophil, Absolute 0.0 10 3/mcL Normal 0.0-0.3 [facility] Comment on above: Performed By: #### A DIFF, ANEU, BMP, CBC, GFR #### [address] [address] Basophils/100 WBC (Bld) 0.9 % Normal 0.0-2.5 [facility] Comment on above: Performed By: #### A DIFF, ANEU, BMP, CBC, GFR #### [address] [address] Eosinophil, Absolute 0.1 10 3/mcL Normal 0.0-0.7 [facility] Comment on above: Performed By: #### A DIFF, ANEU, BMP, CBC, GFR #### [address] [address] Eosinophils/100 WBC (Bld) 2.0 % Normal 0.0-6.0 [facility] Comment on above: Performed By: #### A DIFF, ANEU, BMP, CBC, GFR #### [address] [address] Lymphocyte, Absolute 0.9 10 3/mcL Normal 0.9-4.3 [facility] Comment on above: Performed By: #### A DIFF, ANEU, BMP, CBC, GFR #### [address] [address] Lymphocytes/100 WBC (Bld) 21.1 % Normal 20.0-40.0 [facility] Comment on above: Performed By: #### A DIFF, ANEU, BMP, CBC, GFR #### [address] [address] Monocyte, Absolute 0.3 10 3/mcL Normal 0.1-1.4 [facility] Comment on above: Performed By: #### A DIFF, ANEU, BMP, CBC, GFR #### [address] [address] Monocytes/100 WBC (Bld) 7.6 % Normal 2.0-13.0 [facility] Comment on above: Performed By: #### A DIFF, ANEU, BMP, CBC, GFR #### [address] [address] Neutrophils/100 WBC (Bld) 68.4 % Normal 50.0-75.0 [facility] Comment on above: Performed By: #### A DIFF, ANEU, BMP, CBC, GFR #### [address] [address] .GFRon 10-03-2024 Estimated Glomerular Filtration Rate 109 ml/min/1.73sqm Normal [facility] Comment on above: Result Comment: [...] ANEU, BMP, CBC, GFR #### [place] [id number] .NEUABSon 10-03-2024 Neutrophil, Absolute 2.8 10 3/mcL Normal 2.3-8.1 [facility] Comment on above: Performed By: #### A DIFF, ANEU, BMP, CBC, GFR #### [place] [address] A1Con 10-03-2024 Glucose [Mass/Vol] 114 mg/dL Normal [facility] Comment on above: Result Comment: Zahida mated Average Glucose calculated by equation ((28.7xA1C)-46.7) Estimated average glucose (eAG) is a calculated value from Hemoglobin A1C and is customer operations representative of the average blood glucose level in the last 2-3 month period. Normal range: less than 114 mg/dL Performed By: #### C BC, MG, GFR, ADIFF, BMP, ANEU #### [address] [address] HbA1c (Bld) [Mass fraction] 5.6 % Normal 4.0-6.0 [facility] Comment on above: Performed By: #### C BC, MG, GFR, ADIFF, BMP, ANEU #### [address] [address] CBCon 10-03-2024 Erythrocyte distribution width (RBC) [Ratio] 16.6 % High 11.5-15.5 [facility] Comment on above: Performed By: #### A DIFF, ANEU, BMP, CBC, GFR #### [place] [address] Hematocrit (Bld) [Volume fraction] 41.1 % Normal 40.0-52.0 [facility] Comment on above: Performed By: #### A DIFF, ANEU, BMP, CBC, GFR #### [place] [address] Hgb 13.5 G/dL Normal 13.0-17.5 [facility] Comment on above: Performed By: #### A DIFF, ANEU, BMP, CBC, GFR #### [place] [address] MCH (RBC) [Entitic mass] 28.7 pg Normal 27.0-33.0 [facility] Comment on above: Performed By: #### A DIFF, ANEU, BMP, CBC, GFR #### [place] [address] MCHC 32.9 G/dL Normal 32.0-36.0 [facility] Comment on above: Performed By: #### A DIFF, ANEU, BMP, CBC, GFR #### [place] [address] MCV (RBC) [Entitic vol] 87.2 fL Normal 81.0-100.0 [facility] Comment on above: Performed By: #### A DIFF, ANEU, BMP, CBC, GFR #### [place] [address] Platelet 136 10 3/mcL Low 150-450 [facility] Comment on above: Performed By: #### A DIFF, ANEU, BMP, CBC, GFR #### [place] [address] Platelet mean volume (Bld) [Entitic vol] 7.6 fL Normal 6.4-10.5 [facility] Comment on above: Performed By: #### A DIFF, ANEU, BMP, CBC, GFR #### [place] [address] RBC 4.72 10 6/mcL Normal 4.50-6.00 [facility] Comment on above: Performed By: #### A DIFF, ANEU, BMP, CBC, GFR #### [place] [address] WBC 4.2 10 3/mcL Low 4.5-10.8 [facility] Comment on above: Performed By: #### A DIFF, ANEU, BMP, CBC, GFR #### [place] [address] CMPon 10-03-2024 Albumin Level 3.3 G/dL Normal 3.2-4.8 [facility] Comment on above: Performed By: #### A DIFF, ANEU, BMP, CBC, GFR #### [place] [address] Albumin/Globulin [Mass ratio] 1.0 {ratio} Normal 0.9-1.6 [facility] Comment on above: Performed By: #### A DIFF, ANEU, BMP, CBC, GFR #### [place] [address] ALP [Catalytic activity/Vol] 56 U/L Normal 38-126 [facility] Comment on above: Performed By: #### A DIFF, ANEU, BMP, CBC, GFR #### [place] [address] ALT [Catalytic activity/Vol] 10 U/L Low 12-55 [facility] Comment on above: Performed By: #### A DIFF, ANEU, BMP, CBC, GFR #### [place] [address] AST [Catalytic activity/Vol] 16 U/L Normal 8-34 [facility] Comment on above: Performed By: #### A DIFF, ANEU, BMP, CBC, GFR #### [place] [address] Bili Total 0.60 mg/dL Normal 0.20-1.20 [facility] Comment on above: Result Comment: Use of this assay is not recommended for patients undergoing treatment with eltrombopag due to the potential for falsely elevated results. Performed By: #### A DIFF, ANEU, BMP, CBC, GFR #### [address] [address] BUN/Creatinine Ratio 9.6 ratio Low 10.0-22.0 [facility] Comment on above: Performed By: #### A DIFF, ANEU, BMP, CBC, GFR #### [address] [address] Calcium [Mass/Vol] 8.4 mg/dL Low 8.7-10.4 [facility] Comment on above: Performed By: #### A DIFF, ANEU, BMP, CBC, GFR #### [address] [address] Chloride [Moles/Vol] 105 mmol/L Normal 98-110 [facility] Comment on above: Performed By: #### A DIFF, ANEU, BMP, CBC, GFR #### [address] [address] CO2 [Moles/Vol] 31 mmol/L Normal 22-32 [facility] Comment on above: Performed By: #### A DIFF, ANEU, BMP, CBC, GFR #### [address] [address] Creatinine [Mass/Vol] 0.73 mg/dL Normal 0.60-1.40 [facility] Comment on above: Result Comment: Test ing performed on [employer] analyzer using enzymatic creatinine methodology. Performed By: #### A DIFF, ANEU, BMP, CBC, GFR #### [address] [address] Electrolyte Balance 1.0 mEq/L Low 4.0-15.0 [facility] Comment on above: Performed By: #### A DIFF, ANEU, BMP, CBC, GFR #### [address] [address] Globulin 3.2 G/dL Normal 2.5-4.2 [facility] Comment on above: Performed By: #### A DIFF, ANEU, BMP, CBC, GFR #### [address] [address] Glucose [Mass/Vol] 109 mg/dL Normal 70-110 [facility] Comment on above: Performed By: #### A DIFF, ANEU, BMP, CBC, GFR #### [address] [address] Potassium [Moles/Vol] 3.5 mmol/L Normal 3.5-5.0 [facility] Comment on above: Performed By: #### A DIFF, ANEU, BMP, CBC, GFR #### [address] [address] Sodium [Moles/Vol] 137 mmol/L Normal 136-145 [facility] Comment on above: Performed By: #### A DIFF, ANEU, BMP, CBC, GFR #### [address] [address] Total Protein 6.5 G/dL Normal 5.7-8.2 [facility] Comment on above: Performed By: #### A DIFF, ANEU, BMP, CBC, GFR #### [address] [address] Urea nitrogen [Mass/Vol] 7.0 mg/dL Low 8.0-22.0 [facility] Comment on above: Performed By: #### A DIFF, ANEU, BMP, CBC, GFR #### [address] [address] LABORATORYOrdered By: Jorge Wahl on 10-03-2024 Blood Glucose Testing Reason Routine (10/03/24 4:57 PM) [facility] Glucose [Mass/Vol] 81 mg/dL Normal 70 - 110 mg/dL [facility] LABORATORYOrdered By: Sophie Simental on 10-03-2024 Blood Glucose Testing Reason Routine (10/03/24 11:18 AM) [facility] Glucose [Mass/Vol] 99 mg/dL Normal 70 - 110 mg/dL [facility] LABORATORYOrdered By: SYSTEM SYSTEM on [...] above: Interpretive Data: T esting performed on [employer] analyzer using enzymatic creatinine methodology. Electrolyte Balance [...] calculated value from Hemoglobin A1C and is customer operations representative of the average blood glucose level [...] 10-03-2024 Cholesterol [Mass/Vol] 105 mg/dL Normal 50-199 [facility] Comment on above: Result Comment: Chol esterol Reference Interval: Less than 200 Desirable 200-239 Borderline high risk 240 and above High risk Performed By: #### C BC, MG, GFR, ADIFF, BMP, ANEU #### [place] [address] Cholesterol in HDL [Mass/Vol] 17 mg/dL Low 40-59 [facility] Comment on above: Performed By: #### C BC, MG, GFR, ADIFF, BMP, ANEU #### [place] [address] Cholesterol in LDL [Mass/Vol] 58 mg/dL Normal 0-129 [facility] Comment on above: Performed By: #### C BC, MG, GFR, ADIFF, BMP, ANEU #### [place] [address] Triglyceride [Mass/Vol] 151 mg/dL High 3-149 [facility] Comment on above: Performed By: #### C BC, MG, GFR, ADIFF, BMP, ANEU #### [place] [address] MGon 10-03-2024 Magnesium [Mass/Vol] 2.1 mg/dL Normal 1.6-2.4 [facility] Comment on above: Performed By: #### A DIFF, ANEU, BMP, CBC, GFR #### [address] [address] .Auto Diffon 10-02-2024 Basophil, Absolute 0.0 10 3/mcL Normal 0.0-0.3 [facility] Comment on above: Performed By: #### C BC, MG, GFR, ADIFF, BMP, ANEU #### [place] [address] Basophils/100 WBC (Bld) 0.6 % Normal 0.0-2.5 [facility] Comment on above: Performed By: #### C BC, MG, GFR, ADIFF, BMP, ANEU #### [place] [address] Eosinophil, Absolute 0.1 10 3/mcL Normal 0.0-0.7 [facility] Comment on above: Performed By: #### C BC, MG, GFR, ADIFF, BMP, ANEU #### [address] [address] Eosinophils/100 WBC (Bld) 1.0 % Normal 0.0-6.0 [facility] Comment on above: Performed By: #### C BC, MG, GFR, ADIFF, BMP, ANEU #### [address] [address] Lymphocyte, Absolute 1.2 10 3/mcL Normal 0.9-4.3 [facility] Comment on above: Performed By: #### C BC, MG, GFR, ADIFF, BMP, ANEU #### [address] [address] Lymphocytes/100 WBC (Bld) 18.1 % Low 20.0-40.0 [facility] Comment on above: Performed By: #### C BC, MG, GFR, ADIFF, BMP, ANEU #### [address] [address] Monocyte, Absolute 0.7 10 3/mcL Normal 0.1-1.4 [facility] Comment on above: Performed By: #### C BC, MG, GFR, ADIFF, BMP, ANEU #### [address] [address] Monocytes/100 WBC (Bld) 10.0 % Normal 2.0-13.0 [facility] Comment on above: Performed By: #### C BC, MG, GFR, ADIFF, BMP, ANEU #### [address] [address] Neutrophils/100 WBC (Bld) 70.3 % Normal 50.0-75.0 [facility] Comment on above: Performed By: #### C BC, MG, GFR, ADIFF, BMP, ANEU #### [address] [address] Basophil, Absolute 0.1 10 3/mcL Normal 0.0-0.3 [facility] Comment on above: Performed By: #### A ERIC, MDW, BMP, MG, GFR, ADIFF, DIMER, CBC, PBNP, TROPHS #### [address] [address] Basophils/100 WBC (Bld) 0.8 % Normal 0.0-2.5 [facility] Comment on above: Performed By: #### A MD ERICW, BMP, MG, GFR, ADIFF, DIMER, CBC, PBNP, TROPHS #### [address] [address] Eosinophil, Absolute 0.1 10 3/mcL Normal 0.0-0.7 [facility] Comment on above: Performed By: #### A ERIC, W, BMP, MG, GFR, ADIFF, DIMER, CBC, PBNP, TROPHS #### [address] [address] Eosinophils/100 WBC (Bld) 1.2 % Normal 0.0-6.0 [facility] Comment on above: Performed By: #### A MD ERICW, BMP, MG, GFR, ADIFF, DIMER, CBC, PBNP, TROPHS #### [address] [address] Lymphocyte, Absolute 1.4 10 3/mcL Normal 0.9-4.3 [facility] Comment on above: Performed By: #### A MD ERICW, BMP, MG, GFR, ADIFF, DIMER, CBC, PBNP, TROPHS #### [address] [address] Lymphocytes/100 WBC (Bld) 13.3 % Low 20.0-40.0 [facility] Comment on above: Performed By: #### A MD ERICW, BMP, MG, GFR, ADIFF, DIMER, CBC, PBNP, TROPHS #### [address] [address] Monocyte, Absolute 0.8 10 3/mcL Normal 0.1-1.4 [facility] Comment on above: Performed By: #### A ERICMDW, BMP, MG, GFR, ADIFF, DIMER, CBC, PBNP, TROPHS #### [address] [place] [address] Monocytes/100 WBC (Bld) 7.6 % Normal 2.0-13.0 [facility] Comment on above: Performed By: #### A ELY REYES, BMP, MG, GFR, ADIFF, DIMER, CBC, PBNP, TROPHS #### [place] [id number] [place], [place] [address] Neutrophils/100 WBC (Bld) 77.1 % High 50.0-75.0 [facility] Comment on above: Performed By: #### A MD ERICW, BMP, MG, GFR, ADIFF, DIMER, CBC, PBNP, TROPHS #### [place] [id number] [place], [place] [address] .GFRon 10-02-2024 Estimated Glomerular Filtration Rate 110 ml/min/1.73sqm [facility] MAIN Comment on above: Result [...] A DIFF, ANEU, BMP, CBC, GFR #### [facility] [address] [place] [id number] Estimated Glomerular Filtration Rate 104 ml/min/1.73sqm Normal [facility] Comment on above: Result Comment: Stages [...] GFR, ADIFF, DIMER, CBC, PBNP, TROPHS #### [address] [address] .MDWon 10-02-2024 Monocyte Distribution Width 19.51 Normal 0.00-20.00 [facility] Comment on above: Result Comment: For ED adult patients suspected of sepsis, MDW<=20.0 does not rule out sepsis or risk of sepsis Performed By: #### A ERIC, MDW, BMP, MG, GFR, ADIFF, DIMER, CBC, PBNP, TROPHS #### [address] [address] .NEUABSon 10-02-2024 Neutrophil, Absolute 4.7 10 3/mcL Normal 2.3-8.1 [facility] Comment on above: Performed By: #### C BC, MG, GFR, ADIFF, BMP, ANEU #### [address] [address] Neutrophil, Absolute 8.4 10 3/mcL High 2.3-8.1 [facility] Comment on above: Performed By: #### A ERIC, MDW, BMP, MG, GFR, ADIFF, DIMER, CBC, PBNP, TROPHS #### [address] [address] APTTon 10-02-2024 aPTT Coag (Bld) [Time] 36.5 s High 25.0-35.0 [facility] Comment on above: Result Comment: For Heparin anticoagulation therapy, the recommended therapeutic range is: 54-77 seconds (APTT Correlation with Anti-Xa therapeutic range of 0.3-0.7 units/ml). PLEASE REFERENCE THE PHARMACY PROTOCOL FOR DOSING. Performed By: #### A DIFF, ANEU, BMP, CBC, GFR #### [address] [address] aPTT Coag (Bld) [Time] 29.3 s Normal 25.0-35.0 [facility] Comment on above: Result Comment: For Heparin anticoagulation therapy, the recommended therapeutic range is: 54-77 seconds (APTT Correlation with Anti-Xa therapeutic range of 0.3-0.7 units/ml). PLEASE REFERENCE THE PHARMACY PROTOCOL FOR DOSING. Performed By: #### C BC, MG, GFR, ADIFF, BMP, ANEU #### [place] [id number] [place] [id number] BUN/Creatinine Ratio 14 ratio Normal 7-27 [facility] Comment on above: Performed By: #### A ELY REYES, BMP, MG, GFR, ADIFF, DIMER, CBC, PBNP, TROPHS #### [address] [address] Calcium [Mass/Vol] 8.9 mg/dL Normal 8.4-10.2 [facility] Comment on above: Performed By: #### A ELY REYES, BMP, MG, GFR, ADIFF, DIMER, CBC, PBNP, TROPHS #### [address] [address] Chloride [Moles/Vol] 101 mmol/L Normal 98-107 [facility] Comment on above: Performed By: #### A ELY REYES, BMP, MG, GFR, ADIFF, DIMER, CBC, PBNP, TROPHS #### [address] [address] CO2 [Moles/Vol] 31 mmol/L High 22-29 [facility] Comment on above: Performed By: #### A ELY REYES, BMP, MG, GFR, ADIFF, DIMER, CBC, PBNP, TROPHS #### [address] [address] Creatinine [Mass/Vol] 0.85 mg/dL Normal 0.67-1.17 [facility] Comment on above: Performed By: #### A ELY REYES, BMP, MG, GFR, ADIFF, DIMER, CBC, PBNP, TROPHS #### [address] [address] Electrolyte Balance 6.0 mEq/L Normal 4.0-15.0 [facility] Comment on above: Performed By: #### A ELY REYES, BMP, MG, GFR, ADIFF, DIMER, CBC, PBNP, TROPHS #### [address] [address] Glucose [Mass/Vol] 157 mg/dL High 70-105 [facility] Comment on above: Performed By: #### A ELY REYES, BMP, MG, GFR, ADIFF, DIMER, CBC, PBNP, TROPHS #### [address] [address] Potassium [Moles/Vol] 3.1 mmol/L Low 3.5-5.1 [facility] Comment on above: Performed By: #### A ELY REYES, JULIÁN, MG, GFR, ADIFF, DIMER, CBC, PBNP, TROPHS #### [address] [address] Sodium [Moles/Vol] 138 mmol/L Normal 136-145 [facility] Comment on above: Performed By: #### A ELY REYES, JULIÁN, MG, GFR, ADIFF, DIMER, CBC, PBNP, TROPHS #### [address] [address] Urea nitrogen [Mass/Vol] 12 mg/dL Normal 7-18 [facility] Comment on above: Performed By: #### A ELY REYES, BMP, MG, GFR, ADIFF, DIMER, CBC, PBNP, TROPHS #### [address] [address] CAIONon 10-02-2024 Calcium Ionized 1.09 mmol/L Low 1.12-1.32 [facility] Comment on above: Performed By: #### C BC, MG, GFR, ADIFF, BMP, ANEU #### [facility] [address] [place] [address] CBCon 10-02-2024 Erythrocyte distribution width (RBC) [Ratio] 16.6 % High 11.5-15.5 [facility] Comment on above: Performed By: #### C BC, MG, GFR, ADIFF, BMP, ANEU #### [place] [address] Hematocrit (Bld) [Volume fraction] 47.4 % Normal 40.0-52.0 [facility] Comment on above: Performed By: #### C BC, MG, GFR, ADIFF, BMP, ANEU #### [place] [address] Hgb 15.6 G/dL Normal 13.0-17.5 [facility] Comment on above: Performed By: #### C BC, MG, GFR, ADIFF, BMP, ANEU #### [place] [address] MCH (RBC) [Entitic mass] 28.7 pg Normal 27.0-33.0 [facility] Comment on above: Performed By: #### C BC, MG, GFR, ADIFF, BMP, ANEU #### [place] [address] MCHC 32.9 G/dL Normal 32.0-36.0 [facility] Comment on above: Performed By: #### C BC, MG, GFR, ADIFF, BMP, ANEU #### [place] [address] MCV (RBC) [Entitic vol] 87.2 fL Normal 81.0-100.0 [facility] Comment on above: Performed By: #### C BC, MG, GFR, ADIFF, BMP, ANEU #### [place] [address] Platelet 139 10 3/mcL Low 150-450 [facility] Comment on above: Performed By: #### C BC, MG, GFR, ADIFF, BMP, ANEU #### [place] [address] Platelet mean volume (Bld) [Entitic vol] 7.7 fL Normal 6.4-10.5 [facility] Comment on above: Performed By: #### C BC, MG, GFR, ADIFF, BMP, ANEU #### [address] [address] RBC 5.44 10 6/mcL Normal 4.50-6.00 [facility] Comment on above: Performed By: #### C BC, MG, GFR, ADIFF, BMP, ANEU #### [address] [address] WBC 6.6 10 3/mcL Normal 4.5-10.8 [facility] Comment on above: Performed By: #### C BC, MG, GFR, ADIFF, BMP, ANEU #### [address] [address] Erythrocyte distribution width (RBC) [Ratio] 16.6 % High 11.5-15.5 [facility] Comment on above: Performed By: #### A MD ERICW, BMP, MG, GFR, ADIFF, DIMER, CBC, PBNP, TROPHS #### [address] [address] Hematocrit (Bld) [Volume fraction] 51.4 % Normal 40.0-52.0 [facility] Comment on above: Performed By: #### A MD ERICW, BMP, MG, GFR, ADIFF, DIMER, CBC, PBNP, TROPHS #### [address] [address] Hgb 17.1 G/dL Normal 13.0-17.5 [facility] Comment on above: Performed By: #### A MD ERICW, BMP, MG, GFR, ADIFF, DIMER, CBC, PBNP, TROPHS #### [address] [address] MCH (RBC) [Entitic mass] 28.9 pg Normal 27.0-33.0 [facility] Comment on above: Performed By: #### A MD ERICW, BMP, MG, GFR, ADIFF, DIMER, CBC, PBNP, TROPHS #### [address] [address] MCHC 33.3 G/dL Normal 32.0-36.0 [facility] Comment on above: Performed By: #### A MD ERICW, BMP, MG, GFR, ADIFF, DIMER, CBC, PBNP, TROPHS #### [address] [address] MCV (RBC) [Entitic vol] 86.7 fL Normal 81.0-100.0 [facility] Comment on above: Performed By: #### A MD ERICW, BMP, MG, GFR, ADIFF, DIMER, CBC, PBNP, TROPHS #### [address] [address] Platelet 199 10 3/mcL Normal 150-450 [facility] Comment on above: Performed By: #### A MD ERICW, BMP, MG, GFR, ADIFF, DIMER, CBC, PBNP, TROPHS #### [address] [address] Platelet mean volume (Bld) [Entitic vol] 7.3 fL Normal 6.4-10.5 [facility] Comment on above: Performed By: #### A MD ERICW, BMP, MG, GFR, ADIFF, DIMER, CBC, PBNP, TROPHS #### [address] [address] RBC 5.93 10 6/mcL Normal 4.50-6.00 [facility] Comment on above: Performed By: #### A ERICMDW, BMP, MG, GFR, ADIFF, DIMER, CBC, PBNP, TROPHS #### [address] [address] WBC 10.9 10 3/mcL High 4.5-10.8 [facility] Comment on above: Performed By: #### A ERICMDW, BMP, MG, GFR, ADIFF, DIMER, CBC, PBNP, TROPHS #### [address] [address] CMPon 10-02-2024 Albumin Level 3.2 G/dL Normal 3.2-4.8 [facility] Comment on above: Performed By: #### A DIFF, ANEU, BMP, CBC, GFR #### [address] [address] Albumin/Globulin [Mass ratio] 0.9 {ratio} Normal 0.9-1.6 [facility] Comment on above: Performed By: #### A DIFF, ANEU, BMP, CBC, GFR #### [place] [id number] ALP [Catalytic activity/Vol] 60 U/L Normal 38-126 [facility] Comment on above: Performed By: #### A DIFF, ANEU, BMP, CBC, GFR #### [place] [id number] ALT/SGPT <8 Low 12-55 [facility] Comment on above: Performed By: #### A DIFF, ANEU, BMP, CBC, GFR #### [place] [id number] AST [Catalytic activity/Vol] 15 U/L Normal 8-34 [facility] Comment on above: Performed By: #### A DIFF, ANEU, BMP, CBC, GFR #### [place] [id number] Bili Total 0.60 mg/dL Normal 0.20-1.20 [facility] Comment on above: Result Comment: Use of this assay is not recommended for patients undergoing treatment with eltrombopag due to the potential for falsely elevated results. Performed By: #### A DIFF, ANEU, BMP, CBC, GFR #### [place] [id number] BUN/Creatinine Ratio 15.5 ratio Normal 10.0-22.0 [facility] Comment on above: Performed By: #### A DIFF, ANEU, BMP, CBC, GFR #### [place] [id number] Calcium [Mass/Vol] 8.4 mg/dL Low 8.7-10.4 [facility] Comment on above: Performed By: #### A DIFF, ANEU, BMP, CBC, GFR #### [place] [id number] Chloride [Moles/Vol] 102 mmol/L Normal 98-110 [facility] Comment on above: Performed By: #### A DIFF, ANEU, BMP, CBC, GFR #### [address] [address] CO2 [Moles/Vol] 25 mmol/L Normal 22-32 [facility] Comment on above: Performed By: #### A DIFF, ANEU, BMP, CBC, GFR #### [place] [id number] Creatinine [Mass/Vol] 0.71 mg/dL Normal 0.60-1.40 [facility] Comment on above: Result Comment: Test ing performed on [employer] analyzer using enzymatic creatinine methodology. Performed By: #### A DIFF, ANEU, BMP, CBC, GFR #### [place] [id number] Electrolyte Balance 12.0 mEq/L Normal 4.0-15.0 [facility] Comment on above: Performed By: #### A DIFF, ANEU, BMP, CBC, GFR #### [place] [id number] Globulin 3.5 G/dL Normal 2.5-4.2 [facility] Comment on above: Performed By: #### A DIFF, ANEU, BMP, CBC, GFR #### [place] [id number] Glucose [Mass/Vol] 109 mg/dL Normal 70-110 [facility] Comment on above: Performed By: #### A DIFF, ANEU, BMP, CBC, GFR #### [address] [address] Potassium [Moles/Vol] 3.5 mmol/L Normal 3.5-5.0 [facility] Comment on above: Performed By: #### A DIFF, ANEU, BMP, CBC, GFR #### [place] [id number] Sodium [Moles/Vol] 139 mmol/L Normal 136-145 [facility] Comment on above: Performed By: #### A DIFF, ANEU, BMP, CBC, GFR #### [place] [id number] Total Protein 6.7 G/dL Normal 5.7-8.2 [facility] Comment on above: Performed By: #### A DIFF, ANEU, BMP, CBC, GFR #### [address] [address] Urea nitrogen [Mass/Vol] 11.0 mg/dL Normal 8.0-22.0 [facility] Comment on above: Performed By: #### A DIFF, ANEU, BMP, CBC, GFR #### [address] [address] LABORATORYOrdered By: SYSTEM SYSTEM on 10-02-2024 aPTT [...] above: Interpretive Data: T esting performed on [employer] analyzer using enzymatic creatinine methodology. Electrolyte Balance [...] Comment on above: Interpretive Data: T temitope [employer] (CHEST, 1991, 102:312S-25S) [...] ng/L Male: 0-54 ng/L Testing performed on [employer] analyzer using direct chemiluminescent technology. TSH Qn [...] ng/L Male: 0-76 ng/L Testing performed on [employer] using a homogeneous sandwich chemiluminescent immunoassay based on [employer] technology. Basophils (Bld) [#/Vol] 0.1 103/mcL Normal [...] Comment on above: Interpretive Data: Baljinder linn [employer] (CHEST, 1991, 102:312S-25S) [...] ng/L Male: 0-76 ng/L Testing performed on [employer] using a homogeneous sandwich chemiluminescent immunoassay based on [employer] technology. Urea nitrogen [Mass/Vol] 12 mg/dL Normal [...] 10-02-2024 Magnesium [Mass/Vol] 1.8 mg/dL Normal 1.6-2.4 [facility] Comment on above: Performed By: #### A DIFF, ANEU, BMP, CBC, GFR #### [facility] [address] [place] [address] Magnesium [Mass/Vol] 1.7 mg/dL Low 1.8-2.4 [facility] Comment on above: Performed By: #### A ERIC, MDW, BMP, MG, GFR, ADIFF, DIMER, CBC, PBNP, TROPHS #### [facility] [address] [place], [place] [address] PBNPon 10-02-2024 Natriuretic peptide B (Bld) [Mass/Vol] 2223 pg/mL High 0-900 [facility] Comment on above: Performed By: #### A DIFF, ANEU, BMP, CBC, GFR #### [facility] [address] [place] [address] Natriuretic peptide B (Bld) [Mass/Vol] 973 pg/mL High 0-125 [facility] Comment on above: Result Comment: NT-p roBNP results of less than 300 pg/mL effectively rules out acute congestive heart failure with 99% negative predictive value. Performed By: #### A ERIC, MDW, BMP, MG, GFR, ADIFF, DIMER, CBC, PBNP, TROPHS #### [facility] [address] [place], [place] [address] PHOSon 10-02-2024 Phosphate [Mass/Vol] 2.2 mg/dL Low 2.4-5.1 [facility] Comment on above: Result Comment: No te - New Reference Range in effect 19 Performed By: #### A DIFF, ANEU, BMP, CBC, GFR #### [address] [address] PROon 10-02-2024 INR Coag (PPP) [Relative time] 1.2 {INR} Normal [facility] Comment on above: Result Comment: [employer] (CHEST, 1992, 102:312S-25S) recommended therapeutic range for oral anticoagulant therapy is: LOW RISK: Prophylaxis of venous thrombosis INR: 2.0-3.0 Treatment of pulmonary embolism 2.0-3.0 Prevention of systemic embolism 2.0-3.0 HIGH RISK: Mechanical prosthetic valves 2.5-3.5 Performed By: #### C BC, MG, GFR, ADIFF, BMP, ANEU #### [address] [address] PT Coag (PPP) [Time] 13.4 s Normal 9.0-14.4 [facility] Comment on above: Result Comment: Effe ctive 12/11/07, Protime results may be affected by some antibiotics (i.e. Ciprofloxacin, Azithromycin, Bactrim) which may potentiate the action of oral anticoagulants, with further increases in Protime/INR. Performed By: #### C BC, MG, GFR, ADIFF, BMP, ANEU #### [address] [address] PT Coag (PPP) [Time] 13.5 s Normal 9.0-14.4 [facility] Comment on above: Performed By: #### A ELY REYES, JULIÁN, MG, GFR, ADIFF, DIMER, CBC, PBNP, TROPHS #### [address] [address] PT International Ratio 1.2 Normal [facility] Comment on above: Result Comment: [employer] (CHEST, 1992, 102:312S-25S) recommended therapeutic range for oral anticoagulant therapy is: LOW RISK: Prophylaxis of venous thrombosis INR: 2.0-3.0 Treatment of pulmonary embolism 2.0-3.0 Prevention of systemic embolism 2.0-3.0 HIGH RISK: Mechanical prosthetic valves 2.5-3.5 Performed By: #### A ELY REYES, JULIÁN, MG, GFR, ADIFF, DIMER, CBC, PBNP, TROPHS #### [address] [address] TROPHSon 10-02-2024 High Sensitivity Troponin I 6 ng/L Normal 0-54 [facility] Comment on above: Result Comment: High Sensitive Troponin I Reference Ranges: Female: 0-34 ng/L Male: 0-54 ng/L Testing performed on [employer] IM analyzer using direct chemiluminescent technology. Performed By: #### C BC, MG, GFR, ADIFF, BMP, ANEU #### [address] [address] High Sensitivity Troponin I 9 ng/L Normal 0-76 [facility] Comment on above: Result Comment: High Sensitive Troponin I Reference Ranges: Female: 0-51 ng/L Male: 0-76 ng/L Testing performed on [employer] using a homogeneous sandwich chemiluminescent immunoassay based on [employer] technology. Performed By: #### A ELY REYES, JULIÁN, MG, GFR, ADIFF, DIMER, CBC, PBNP, TROPHS #### [address] [place], [place] [address] High Sensitivity Troponin I 9 ng/L Normal 0-76 [facility] Comment on above: Result Comment: High Sensitive Troponin I Reference Ranges: Female: 0-51 ng/L Male: 0-76 ng/L Testing performed on [employer] using a homogeneous sandwich chemiluminescent immunoassay based on [employer] technology. Performed By: #### A ERIC, MDW, BMP, MG, GFR, ADIFF, DIMER, CBC, PBNP, TROPHS #### [facility] [address] [place], [place] [address] TSHon 10-02-2024 TSH 1.923 mIU/mL Normal 0.550-4.780 [facility] Comment on above: Performed By: #### A DIFF, ANEU, BMP, CBC, GFR #### [facility] [address] [place] [address] XR CHEST 1 VIEWon 10-02-2024 XR CHEST [...] Report By: Jordon Levin Electronically signed By aDrnell Molina MD Dictated Date: 10/02/2024 1:53:31 AM Prelim Date: 10/02/2024 1:57:22 AM Sign Date: 10/02/2024 2:02:33 AM Ordering Provider: DELORES Kate [facility] XR ANKLE MINIMUM 3 VIEWS LEF Ton [...] 08/29/2024 3:52:38 PM Ordering Provider: EDER FARFAN [facility] XR CHEST 2 VIEWSon XR [...] 08/29/2024 4:51:29 PM Ordering Provider: GIRMA Kate [facility] .Auto Diffon 08-13-2024 Basophil, Absolute 0.0 10 3/mcL Normal 0.0-0.2 [facility] Comment on above: Performed By: #### A MD ERICW, BMP, MG, GFR, ADIFF, DIMER, CBC, PBNP, TROPHS #### [address] [address] Basophils/100 WBC (Bld) 0.7 % Normal 0.0-2.5 [facility] Comment on above: Performed By: #### A ERIC, W, BMP, MG, GFR, ADIFF, DIMER, CBC, PBNP, TROPHS #### [address] [address] Eosinophil, Absolute 0.1 10 3/mcL Normal 0.0-0.7 [facility] Comment on above: Performed By: #### A MD ERICW, BMP, MG, GFR, ADIFF, DIMER, CBC, PBNP, TROPHS #### [address] [address] Eosinophils/100 WBC (Bld) 1.3 % Normal 0.0-7.0 [facility] Comment on above: Performed By: #### A MD ERICW, BMP, MG, GFR, ADIFF, DIMER, CBC, PBNP, TROPHS #### [address] [address] Lymphocyte, Absolute 0.8 10 3/mcL Low 0.9-4.3 [facility] Comment on above: Performed By: #### A ERIC, W, BMP, MG, GFR, ADIFF, DIMER, CBC, PBNP, TROPHS #### [address] [address] Lymphocytes/100 WBC (Bld) 19.9 % Low 20.0-40.0 [facility] Comment on above: Performed By: #### A MD ERICW, BMP, MG, GFR, ADIFF, DIMER, CBC, PBNP, TROPHS #### [address] [address] Monocyte, Absolute 0.3 10 3/mcL Normal 0.1-1.4 [facility] Comment on above: Performed By: #### A ELY REYES, BMP, MG, GFR, ADIFF, DIMER, CBC, PBNP, TROPHS #### [address] [address] Monocytes/100 WBC (Bld) 6.9 % Normal 2.0-13.0 [facility] Comment on above: Performed By: #### A ELY REYES, BMP, MG, GFR, ADIFF, DIMER, CBC, PBNP, TROPHS #### [place] [id number] [place], [place] [address] Neutrophils/100 WBC (Bld) 71.2 % Normal 50.0-75.0 [facility] Comment on above: Performed By: #### A ELY REYES, JULIÁN, MG, GFR, ADIFF, DIMER, CBC, PBNP, TROPHS #### [place] [id number] [place], [place] [address] .GFRon 08-13-2024 Estimated Glomerular Filtration Rate 107 ml/min/1.73sqm Normal [facility] Comment on above: Result Comment: Stages [...] GFR, ADIFF, DIMER, CBC, PBNP, TROPHS #### [place] [id number] [place], [place] [address] .MDWon 08-13-2024 Monocyte Distribution Width 19.39 Normal 0.00-20.00 [facility] Comment on above: Result Comment: For ED adult patients suspected of sepsis, MDW<=20.0 does not rule out sepsis or risk of sepsis Performed By: #### A ELY REYES, BMP, MG, GFR, ADIFF, DIMER, CBC, PBNP, TROPHS #### [address] [address] .NEUABSon 08-13-2024 Neutrophil, Absolute 2.9 10 3/mcL Normal 2.3-8.1 [facility] Comment on above: Performed By: #### A ELY REYES, BMP, MG, GFR, ADIFF, DIMER, CBC, PBNP, TROPHS #### [place] [address] CBCon 08-13-2024 Erythrocyte distribution width (RBC) [Ratio] 17.1 % High 11.5-15.5 [facility] Comment on above: Performed By: #### A ELY REYES, BMP, MG, GFR, ADIFF, DIMER, CBC, PBNP, TROPHS #### [address] [address] Hematocrit (Bld) [Volume fraction] 42.8 % Normal 40.0-52.0 [facility] Comment on above: Performed By: #### A ELY REYES, BMP, MG, GFR, ADIFF, DIMER, CBC, PBNP, TROPHS #### [place] [address] Hgb 14.0 G/dL Normal 13.0-17.5 [facility] Comment on above: Performed By: #### A ELY REYES, BMP, MG, GFR, ADIFF, DIMER, CBC, PBNP, TROPHS #### [place] [address] MCH (RBC) [Entitic mass] 27.9 pg Normal 27.0-33.0 [facility] Comment on above: Performed By: #### A ELY REYES, BMP, MG, GFR, ADIFF, DIMER, CBC, PBNP, TROPHS #### [address] [address] MCHC 32.8 G/dL Normal 32.0-36.0 [facility] Comment on above: Performed By: #### A ELY REYES, BMP, MG, GFR, ADIFF, DIMER, CBC, PBNP, TROPHS #### [address] [address] MCV (RBC) [Entitic vol] 84.9 fL Normal 81.0-100.0 [facility] Comment on above: Performed By: #### A ELY REYES, BMP, MG, GFR, ADIFF, DIMER, CBC, PBNP, TROPHS #### [place] [address] Platelet 137 10 3/mcL Low 150-450 [facility] Comment on above: Performed By: #### A ELY REYES, JULIÁN, MG, GFR, ADIFF, DIMER, CBC, PBNP, TROPHS #### [address] [address] Platelet mean volume (Bld) [Entitic vol] 6.7 fL Normal 6.4-10.5 [facility] Comment on above: Performed By: #### A ELY REYES, JULIÁN, MG, GFR, ADIFF, DIMER, CBC, PBNP, TROPHS #### [address] [address] RBC 5.04 10 6/mcL Normal 4.50-6.00 [facility] Comment on above: Performed By: #### A ELY REYES, BMP, MG, GFR, ADIFF, DIMER, CBC, PBNP, TROPHS #### [address] [address] WBC 4.1 10 3/mcL Low 4.5-10.8 [facility] Comment on above: Performed By: #### A ELY REYES, JULIÁN, MG, GFR, ADIFF, DIMER, CBC, PBNP, TROPHS #### [address] [address] CMPon 08-13-2024 Albumin Level 3.3 G/dL Low 3.5-5.0 [facility] Comment on above: Performed By: #### A ELY REYES, BMP, MG, GFR, ADIFF, DIMER, CBC, PBNP, TROPHS #### [place] [address] Albumin/Globulin [Mass ratio] 0.8 {ratio} Low 1.1-2.5 [facility] Comment on above: Performed By: #### A ELY REYES, BMP, MG, GFR, ADIFF, DIMER, CBC, PBNP, TROPHS #### [place] [address] ALP [Catalytic activity/Vol] 76 U/L Normal 40-135 [facility] Comment on above: Performed By: #### A ELY REYES, BMP, MG, GFR, ADIFF, DIMER, CBC, PBNP, TROPHS #### [place] [address] ALT [Catalytic activity/Vol] 10 U/L Low 16-63 [facility] Comment on above: Performed By: #### A ELY REYES, BMP, MG, GFR, ADIFF, DIMER, CBC, PBNP, TROPHS #### [place] [address] AST [Catalytic activity/Vol] 14 U/L Normal 10-40 [facility] Comment on above: Performed By: #### A ELY REYES, BMP, MG, GFR, ADIFF, DIMER, CBC, PBNP, TROPHS #### [place] [address] Bili Total 0.4 mg/dL Normal 0.2-1.0 [facility] Comment on above: Result Comment: Use of this assay is not recommended for patients undergoing treatment with eltrombopag due to the potential for falsely elevated results. Performed By: #### A ELY REYES, BMP, MG, GFR, ADIFF, DIMER, CBC, PBNP, TROPHS #### [place] [address] BUN/Creatinine Ratio 13 ratio Normal 7-27 [facility] Comment on above: Performed By: #### A ELY REYES, BMP, MG, GFR, ADIFF, DIMER, CBC, PBNP, TROPHS #### [place] [address] Calcium [Mass/Vol] 8.6 mg/dL Normal 8.4-10.2 [facility] Comment on above: Performed By: #### A ELY REYES, BMP, MG, GFR, ADIFF, DIMER, CBC, PBNP, TROPHS #### [place] [address] Chloride [Moles/Vol] 101 mmol/L Normal 98-107 [facility] Comment on above: Performed By: #### A ELY REYES, BMP, MG, GFR, ADIFF, DIMER, CBC, PBNP, TROPHS #### [place] [address] CO2 [Moles/Vol] 35 mmol/L High 22-29 [facility] Comment on above: Performed By: #### A ELY REYES, BMP, MG, GFR, ADIFF, DIMER, CBC, PBNP, TROPHS #### [place] [address] Creatinine [Mass/Vol] 0.78 mg/dL Normal 0.70-1.30 [facility] Comment on above: Result Comment: Test ing performed on Siemens Dimension EXL analyzer using a modified kinetic Ciera technique. Performed By: #### A ELY REYES, BMP, MG, GFR, ADIFF, DIMER, CBC, PBNP, TROPHS #### [place] [address] Electrolyte Balance 2.0 mEq/L Low 4.0-15.0 [facility] Comment on above: Performed By: #### A ELY REYES, BMP, MG, GFR, ADIFF, DIMER, CBC, PBNP, TROPHS #### [place] [address] Globulin 3.9 G/dL High 1.5-3.8 [facility] Comment on above: Performed By: #### A ELY REYES, BMP, MG, GFR, ADIFF, DIMER, CBC, PBNP, TROPHS #### [address] [id number] Glucose [Mass/Vol] 105 mg/dL Normal 70-105 [facility] Comment on above: Performed By: #### A ELY REYES, BMP, MG, GFR, ADIFF, DIMER, CBC, PBNP, TROPHS #### [address] [address] Potassium [Moles/Vol] 3.8 mmol/L Normal 3.5-5.1 [facility] Comment on above: Performed By: #### A ELY REYES, BMP, MG, GFR, ADIFF, DIMER, CBC, PBNP, TROPHS #### [address] [address] Sodium [Moles/Vol] 138 mmol/L Normal 136-145 [facility] Comment on above: Performed By: #### A ELY REYES, BMP, MG, GFR, ADIFF, DIMER, CBC, PBNP, TROPHS #### [address] [address] Total Protein 7.2 G/dL Normal 6.4-8.2 [facility] Comment on above: Performed By: #### A ELY REYES, BMP, MG, GFR, ADIFF, DIMER, CBC, PBNP, TROPHS #### [address] [address] Urea nitrogen [Mass/Vol] 10 mg/dL Normal 7-18 [facility] Comment on above: Performed By: #### A ELY REYES, BMP, MG, GFR, ADIFF, DIMER, CBC, PBNP, TROPHS #### [address] [address] CVFLURVon 08-13-2024 FLU A PCR Negative Normal Negative [facility] Comment on above: Performed By: #### C VFLURV #### [address] [address] FLU B PCR Negative Normal Negative [facility] Comment on above: Performed By: #### C VFLURV #### [address] [address] RSV PCR Negative Normal Negative [facility] Comment on above: Performed By: #### C VFLURV #### [address] [address] SARS-CoV-2 (COVID-19) RNA ROSE+probe Ql (Unsp spec) Negative Normal Negative [facility] Comment on above: Result Comment: Resu [...] results. Performed By: #### C VFLURV #### [place] [address] PBNPon 08-13-2024 Natriuretic peptide B (Bld) [Mass/Vol] 456 pg/mL High 0-125 [facility] Comment on above: Result Comment: NT-p roBNP results of less than 300 pg/mL effectively rules out acute congestive heart failure with 99% negative predictive value. Performed By: #### A ERIC, MDW, BMP, MG, GFR, ADIFF, DIMER, CBC, PBNP, TROPHS #### [address] [address] TROPHSon 08-13-2024 High Sensitivity Troponin I 8 ng/L Normal 0-76 [facility] Comment on above: Result Comment: High Sensitive Troponin I Reference Ranges: Female: 0-51 ng/L Male: 0-76 ng/L Testing performed on [employer] using a homogeneous sandwich chemiluminescent immunoassay based on StatusNet technology. Performed By: #### A ERIC, W, BMP, MG, GFR, ADIFF, DIMER, CBC, PBNP, TROPHS #### [facility] [address] [place], [place] [address] XR CHEST 1 VIEWon 08-13-2024 XR CHEST [...] 08/13/2024 11:55:14 AM Ordering Provider: WILNER JOE [facility] .GFRon 05-14-2024 GFR Non- 90 ml/min/1.73sqm [facility] Comment on above: Result [...] GFR, ADIFF, DIMER, CBC, PBNP, TROPHS #### [address] [address] GFR 109 ml/min/1.73sqm Normal [facility] Comment on above: Result Comment: GFR [...] GFR, ADIFF, DIMER, CBC, PBNP, TROPHS #### [address] [address] A1Con 05-14-2024 Glucose [Mass/Vol] 120 mg/dL Normal [facility] Comment on above: Result Comment: Zahida mated Average Glucose calculated by equation ((28.7xA1C)-46.7) Estimated average glucose (eAG) is a calculated value from Hemoglobin A1C and is customer operations representative of the average blood glucose level in the last 2-3 month period. Normal range: less than 114 mg/dL Performed By: #### A ELY REYES, BMP, MG, GFR, ADIFF, DIMER, CBC, PBNP, TROPHS #### [address] [address] HbA1c (Bld) [Mass fraction] 5.8 % Normal 4.3-6.4 [facility] Comment on above: Performed By: #### A ELY REYES, BMP, MG, GFR, ADIFF, DIMER, CBC, PBNP, TROPHS #### [address] [address] CMPon 05-14-2024 Albumin Level 3.4 G/dL Low 3.5-5.0 [facility] Comment on above: Performed By: #### A ELY REYES, BMP, MG, GFR, ADIFF, DIMER, CBC, PBNP, TROPHS #### [address] [address] Albumin/Globulin [Mass ratio] 0.9 {ratio} Low 1.1-2.5 [facility] Comment on above: Performed By: #### A ELY REYES, BMP, MG, GFR, ADIFF, DIMER, CBC, PBNP, TROPHS #### [address] [address] ALP [Catalytic activity/Vol] 87 U/L Normal 40-135 [facility] Comment on above: Performed By: #### A ELY REYES, BMP, MG, GFR, ADIFF, DIMER, CBC, PBNP, TROPHS #### [address] [address] ALT [Catalytic activity/Vol] 17 U/L Normal 16-63 [facility] Comment on above: Performed By: #### A ELY REYES, BMP, MG, GFR, ADIFF, DIMER, CBC, PBNP, TROPHS #### [address] [address] AST [Catalytic activity/Vol] 12 U/L Normal 10-40 [facility] Comment on above: Performed By: #### A ELY REYES, BMP, MG, GFR, ADIFF, DIMER, CBC, PBNP, TROPHS #### [address] [address] Bili Total 0.3 mg/dL Normal 0.2-1.0 [facility] Comment on above: Result Comment: Use of this assay is not recommended for patients undergoing treatment with eltrombopag due to the potential for falsely elevated results. Performed By: #### A ELY ERYES, BMP, MG, GFR, ADIFF, DIMER, CBC, PBNP, TROPHS #### [address] [address] BUN/Creatinine Ratio 15 ratio Normal 7-27 [facility] Comment on above: Performed By: #### A ELY REYES, BMP, MG, GFR, ADIFF, DIMER, CBC, PBNP, TROPHS #### [place] [address] Calcium [Mass/Vol] 8.9 mg/dL Normal 8.4-10.2 [facility] Comment on above: Performed By: #### A ELY REYES, BMP, MG, GFR, ADIFF, DIMER, CBC, PBNP, TROPHS #### [place] [address] Chloride [Moles/Vol] 101 mmol/L Normal 98-107 [facility] Comment on above: Performed By: #### A ELY REYES, BMP, MG, GFR, ADIFF, DIMER, CBC, PBNP, TROPHS #### [place] [id number] CO2 [Moles/Vol] 34 mmol/L High 22-29 [facility] Comment on above: Performed By: #### A ELY REYES, BMP, MG, GFR, ADIFF, DIMER, CBC, PBNP, TROPHS #### [address] [address] Creatinine [Mass/Vol] 0.89 mg/dL Normal 0.70-1.30 [facility] Comment on above: Result Comment: Test ing performed on Siemens Dimension EXL analyzer using a modified kinetic Ciera technique. Performed By: #### A ELY REYES, BMP, MG, GFR, ADIFF, DIMER, CBC, PBNP, TROPHS #### [place] [address] Electrolyte Balance 5.0 mEq/L Normal 4.0-15.0 [facility] Comment on above: Performed By: #### A ELY REYES, BMP, MG, GFR, ADIFF, DIMER, CBC, PBNP, TROPHS #### [address] [address] Globulin 3.8 G/dL Normal [facility] Comment on above: Performed By: #### A ELY REYES, BMP, MG, GFR, ADIFF, DIMER, CBC, PBNP, TROPHS #### [address] [address] Glucose [Mass/Vol] 99 mg/dL Normal 70-105 [facility] Comment on above: Performed By: #### A ELY REYES, BMP, MG, GFR, ADIFF, DIMER, CBC, PBNP, TROPHS #### [address] [address] Potassium [Moles/Vol] 4.0 mmol/L Normal 3.5-5.1 [facility] Comment on above: Performed By: #### A ELY REYES, JULIÁN, MG, GFR, ADIFF, DIMER, CBC, PBNP, TROPHS #### [address] [address] Sodium [Moles/Vol] 140 mmol/L Normal 136-145 [facility] Comment on above: Performed By: #### A ELY REYES, JULIÁN, MG, GFR, ADIFF, DIMER, CBC, PBNP, TROPHS #### [address] [address] Total Protein 7.2 G/dL Normal 6.4-8.2 [facility] Comment on above: Performed By: #### A ELY REYES, JULIÁN, MG, GFR, ADIFF, DIMER, CBC, PBNP, TROPHS #### [address] [address] Urea nitrogen [Mass/Vol] 13 mg/dL Normal 7-18 [facility] Comment on above: Performed By: #### A ELY REYES, BMP, MG, GFR, ADIFF, DIMER, CBC, PBNP, TROPHS #### [address] [address] LABORATORYOrdered By: SYSTEM SYSTEM on 05-14-2024 Albumin [...] calculated value from Hemoglobin A1C and is customer operations representative of the average blood glucose level [...] 05-14-2024 Cholesterol [Mass/Vol] 144 mg/dL Normal 0-200 [facility] Comment on above: Result Comment: Chol esterol Reference Interval: Less than 200 Desirable 200-239 Borderline high risk 240 and above High risk Performed By: #### A ELY REYES, BMP, MG, GFR, ADIFF, DIMER, CBC, PBNP, TROPHS #### [address] [address] Cholesterol in HDL [Mass/Vol] 24 mg/dL Low 40-60 [facility] Comment on above: Performed By: #### A ELY REYES, JULIÁN, MG, GFR, ADIFF, DIMER, CBC, PBNP, TROPHS #### [address] [address] Cholesterol in LDL [Mass/Vol] 72 mg/dL Normal 0-130 [facility] Comment on above: Performed By: #### A ELY REYES, BMP, MG, GFR, ADIFF, DIMER, CBC, PBNP, TROPHS #### [address] [address] Triglyceride [Mass/Vol] 242 mg/dL High 0-150 [facility] Comment on above: Result Comment: Trig lyceride Reference Interval: Less than 150 Normal 150-199 Borderline high risk 200-499 High risk 500 or higher Very high risk Performed By: #### A ELY REYES, BMP, MG, GFR, ADIFF, DIMER, CBC, PBNP, TROPHS #### [address] [address] Final Surgical Pathology Rep ezequiel 03-27-2024 Final Surgical Pathology Report . Pathology Reports Accession: Collected Date/Time: Received Date/Time: Pathologist: [id number] 03/25/2024 15:47 EDT 03/26/2024 07:38 EDT BEAU WILBURN MD Final Surgical Pathology Report DIAGNOSIS: RIGHT ARM EXCISION: - GLOMANGIOMYOMA CLINICAL INFORMATION: SKIN LESION Procedure: EXCISION Preoperative diagnosis: SKIN LESION Postoperative diagnosis: SKIN LESION SPECIMEN: A RIGHT ARM GROSS DESCRIPTION: All parts labelled with patient name and [id number] Received in formalin labelled "right arm excision" Is a unoriented ellipse of skin measuring 1.5 x 0.4 and excised to depth of 1.2 cm. Excision margin inked black. Skin surface grossly unremarkable, located within the underlying soft tissue is a santillan firm well-circumscribed possible mass/lymph node measuring 0.6 x 0.6 x 0.6 cm. TS-2 Austin Somers, Pathologists' Communications Specialist (ASCP) Performed by [facility]UST[facility] SOMERS MICROSCOPIC DESCRIPTION: The microscopic examination is performed, except in the case of Gross Only. Electronically Signed by Pathology Report verified by [facility] BEAU WILBURN Sign out Date: 03/27/2024 16:10 Performing Lab: [facility], [address] [place] [address] Pathology Dept Disclaimer If ancillary studies were utilized, the following Laboratory Developed Test (LDT) disclaimer will apply: Under CLIA requirements, [facility] is qualified to perform high complexity testing. For all ancillary stains, positive and negative controls stain appropriately. Performance characteristics of immunohistochemical and chromogenic in-situ hybridization tests have been determined by [facility]. These tests are used for clinical purposes, They should not be regarded as investigational or for research. Normal [facility] US SOFT TISSUE MASS OF RT [...] 11:09:23 AM Ordering Provider: GIRMA CORREA Normal [facility] TSHon 02-15-2024 TSH Qn 1.65 m[IU]/L Normal 0.36-3.74 [facility] Comment on above: Performed By: #### A ELY REYES, JULIÁN, MG, GFR, ADIFF, DIMER, CBC, PBNP, TROPHS #### [address] [address] .GFRon 02-12-2024 GFR 95 ml/min/1.73sqm Normal [facility] Comment on above: Result Comment: GFR [...] GFR, ADIFF, DIMER, CBC, PBNP, TROPHS #### [address] [address] GFR Non- 78 ml/min/1.73sqm Normal [facility] Comment on above: Result Comment: GFR [...] GFR, ADIFF, DIMER, CBC, PBNP, TROPHS #### [address] [address] A1Con 02-12-2024 Glucose [Mass/Vol] 131 mg/dL Normal [facility] Comment on above: Result Comment: Zahida mated Average Glucose calculated by equation ((28.7xA1C)-46.7) Estimated average glucose (eAG) is a calculated value from Hemoglobin A1C and is customer operations representative of the average blood glucose level in the last 2-3 month period. Normal range: less than 114 mg/dL Performed By: #### A ELY REYES, JULIÁN, MG, GFR, ADIFF, DIMER, CBC, PBNP, TROPHS #### [address] [address] HbA1c (Bld) [Mass fraction] 6.2 % Normal 4.3-6.4 [facility] Comment on above: Performed By: #### A ELY REYES, BMP, MG, GFR, ADIFF, DIMER, CBC, PBNP, TROPHS #### [place] [id number] [place], [place] [address] CMPon 02-12-2024 Albumin Level 3.3 G/dL Low 3.5-5.0 [facility] Comment on above: Performed By: #### A ELY REYES, BMP, MG, GFR, ADIFF, DIMER, CBC, PBNP, TROPHS #### [place] [address] Albumin/Globulin [Mass ratio] 0.9 {ratio} Low 1.1-2.5 [facility] Comment on above: Performed By: #### A ELY REYES, BMP, MG, GFR, ADIFF, DIMER, CBC, PBNP, TROPHS #### [place] [address] ALP [Catalytic activity/Vol] 74 U/L Normal 40-135 [facility] Comment on above: Performed By: #### A ELY REYES, BMP, MG, GFR, ADIFF, DIMER, CBC, PBNP, TROPHS #### [place] [address] ALT [Catalytic activity/Vol] 20 U/L Normal 16-63 [facility] Comment on above: Performed By: #### A ELY REYES, BMP, MG, GFR, ADIFF, DIMER, CBC, PBNP, TROPHS #### [place] [address] AST [Catalytic activity/Vol] 13 U/L Normal 10-40 [facility] Comment on above: Performed By: #### A ELY REYES, BMP, MG, GFR, ADIFF, DIMER, CBC, PBNP, TROPHS #### [place] [address] Bili Total 0.5 mg/dL Normal 0.2-1.0 [facility] Comment on above: Result Comment: Use of this assay is not recommended for patients undergoing treatment with eltrombopag due to the potential for falsely elevated results. Performed By: #### A ELY REYES, BMP, MG, GFR, ADIFF, DIMER, CBC, PBNP, TROPHS #### [place] [address] BUN/Creatinine Ratio 6 ratio Low 7-27 [facility] Comment on above: Performed By: #### A ELY REYES, BMP, MG, GFR, ADIFF, DIMER, CBC, PBNP, TROPHS #### [address] [address] Calcium [Mass/Vol] 8.5 mg/dL Normal 8.4-10.2 [facility] Comment on above: Performed By: #### A ELY REYES, BMP, MG, GFR, ADIFF, DIMER, CBC, PBNP, TROPHS #### [address] [address] Chloride [Moles/Vol] 100 mmol/L Normal 98-107 [facility] Comment on above: Performed By: #### A ELY REYES, BMP, MG, GFR, ADIFF, DIMER, CBC, PBNP, TROPHS #### [address] [address] CO2 [Moles/Vol] 34 mmol/L High 22-29 [facility] Comment on above: Performed By: #### A ELY REYES, BMP, MG, GFR, ADIFF, DIMER, CBC, PBNP, TROPHS #### [address] [address] Creatinine [Mass/Vol] 1.00 mg/dL Normal 0.70-1.30 [facility] Comment on above: Result Comment: Test ing performed on Siemens Dimension EXL analyzer using a modified kinetic Ciera technique. Performed By: #### A ELY REYES, BMP, MG, GFR, ADIFF, DIMER, CBC, PBNP, TROPHS #### [address] [address] Electrolyte Balance 4.0 mEq/L Normal 4.0-15.0 [facility] Comment on above: Performed By: #### A ELY REYES, BMP, MG, GFR, ADIFF, DIMER, CBC, PBNP, TROPHS #### [address] [address] Globulin 3.8 G/dL Normal [facility] Comment on above: Performed By: #### A ELY REYES, BMP, MG, GFR, ADIFF, DIMER, CBC, PBNP, TROPHS #### [address] [address] Glucose [Mass/Vol] 80 mg/dL Normal 70-105 [facility] Comment on above: Performed By: #### A ELY REYES, BMP, MG, GFR, ADIFF, DIMER, CBC, PBNP, TROPHS #### [place] [address] Potassium [Moles/Vol] 4.3 mmol/L Normal 3.5-5.1 [facility] Comment on above: Performed By: #### A ELY REYES, BMP, MG, GFR, ADIFF, DIMER, CBC, PBNP, TROPHS #### [place] [address] Sodium [Moles/Vol] 138 mmol/L Normal 136-145 [facility] Comment on above: Performed By: #### A ELY REYES, BMP, MG, GFR, ADIFF, DIMER, CBC, PBNP, TROPHS #### [place] [address] Total Protein 7.1 G/dL Normal 6.4-8.2 [facility] Comment on above: Performed By: #### A ELY REYES, BMP, MG, GFR, ADIFF, DIMER, CBC, PBNP, TROPHS #### [place] [address] Urea nitrogen [Mass/Vol] 6 mg/dL Low 7-18 [facility] Comment on above: Performed By: #### A ELY REYES, BMP, MG, GFR, ADIFF, DIMER, CBC, PBNP, TROPHS #### [place] [address] LABORATORYOrdered By: SYSTEM SYSTEM on 02-12-2024 Albumin [...] calculated value from Hemoglobin A1C and is customer operations representative of the average blood glucose level [...] 02-12-2024 Cholesterol [Mass/Vol] 117 mg/dL Normal 0-200 [facility] Comment on above: Result Comment: Chol esterol Reference Interval: Less than 200 Desirable 200-239 Borderline high risk 240 and above High risk Performed By: #### A ELY REYES, BMP, MG, GFR, ADIFF, DIMER, CBC, PBNP, TROPHS #### [address] [address] Cholesterol in HDL [Mass/Vol] 25 mg/dL Low 40-60 [facility] Comment on above: Performed By: #### A ELY REYES, BMP, MG, GFR, ADIFF, DIMER, CBC, PBNP, TROPHS #### [address] [address] Cholesterol in LDL [Mass/Vol] 53 mg/dL Normal 0-130 [facility] Comment on above: Performed By: #### A ELY REYES, BMP, MG, GFR, ADIFF, DIMER, CBC, PBNP, TROPHS #### [address] [address] Triglyceride [Mass/Vol] 196 mg/dL High 0-150 [facility] Comment on above: Result Comment: Trig lyceride Reference Interval: Less than 150 Normal 150-199 Borderline high risk 200-499 High risk 500 or higher Very high risk Performed By: #### A ELY REYES, BMP, MG, GFR, ADIFF, DIMER, CBC, PBNP, TROPHS #### [address] [address] PSAon 02-12-2024 Prostate Specific Antigen 0.25 ng/mL Normal 0.00-4.00 [facility] Comment on above: Performed By: #### A ERIC, MDW, BMP, MG, GFR, ADIFF, DIMER, CBC, PBNP, TROPHS #### [address] [address] .Auto Diffon 02-01-2024 Basophil, Absolute 0.1 10 3/mcL Normal 0.0-0.3 [facility] ([place]) Comment on above: Performed By: #### A DIFF, TROPHS, GFR, BMP, MDW, CBC, PBNP, ANEU #### [address] [address] Basophils/100 WBC (Bld) 0.8 % Normal 0.0-2.5 [facility] ([place]) Comment on above: Performed By: #### A DIFF, TROPHS, GFR, BMP, MDW, CBC, PBNP, ANEU #### [address] [address] Eosinophil, Absolute 0.1 10 3/mcL Normal 0.0-0.7 [facility] ([place]) Comment on above: Performed By: #### A DIFF, TROPHS, GFR, BMP, MDW, CBC, PBNP, ANEU #### [address] [address] Eosinophils/100 WBC (Bld) 1.2 % Normal 0.0-6.0 [facility] ([place]) Comment on above: Performed By: #### A DIFF, TROPHS, GFR, BMP, MDW, CBC, PBNP, ANEU #### [address] [address] Lymphocyte, Absolute 1.4 10 3/mcL Normal 0.9-4.3 [facility] ([place]) Comment on above: Performed By: #### A DIFF, TROPHS, GFR, BMP, MDW, CBC, PBNP, ANEU #### [address] [address] Lymphocytes/100 WBC (Bld) 19.9 % Low 20.0-40.0 [facility] ([place] Comment on above: Performed By: #### A DIFF, TROPHS, GFR, BMP, MDW, CBC, PBNP, ANEU #### [address] [address] Monocyte, Absolute 0.7 10 3/mcL Normal 0.1-1.4 [facility] ([place]) Comment on above: Performed By: #### A DIFF, TROPHS, GFR, BMP, MDW, CBC, PBNP, ANEU #### [address] [address] Monocytes/100 WBC (Bld) 9.4 % Normal 2.0-13.0 A [facility] ([place]) Comment on above: Performed By: #### A DIFF, TROPHS, GFR, BMP, MDW, CBC, PBNP, ANEU #### [address] [address] Neutrophils/100 WBC (Bld) 68.7 % Normal 50.0-75.0 [facility] ([place] Comment on above: Performed By: #### A DIFF, TROPHS, GFR, BMP, MDW, CBC, PBNP, ANEU #### [address] [address] .GFRon 02-01-2024 GFR >60 Normal [facility] ([place]) Comment on above: Result Comment: GFR Population [...] GFR, BMP, MDW, CBC, PBNP, ANEU #### [address] [address] GFR Non- >60 Normal [facility] ([place] Comment on above: Result Comment: GFR Population [...] GFR, BMP, MDW, CBC, PBNP, ANEU #### [address] [address] .NEUABSon 02-01-2024 Neutrophil, Absolute 4.8 10 3/mcL Normal 2.3-8.1 [facility] ([place]) Comment on above: Performed By: #### A DIFF, TROPHS, GFR, BMP, MDW, CBC, PBNP, ANEU #### [address] [address] APTTon 02-01-2024 aPTT Coag (Bld) [Time] 47.1 s High 25.0-35.0 [facility] ([place]) Comment on above: Result Comment: For Heparin anticoagulation therapy, the recommended therapeutic range is: 54-77 seconds (APTT Correlation with Anti-Xa therapeutic range of 0.3-0.7 units/ml). PLEASE REFERENCE THE PHARMACY PROTOCOL FOR DOSING. Performed By: #### A DIFF, TROPHS, GFR, BMP, MDW, CBC, PBNP, ANEU #### [address] [address] aPTT Coag (Bld) [Time] 46.1 s High 25.0-35.0 [facility] ([place]) Comment on above: Result Comment: For Heparin anticoagulation therapy, the recommended therapeutic range is: 54-77 seconds (APTT Correlation with Anti-Xa therapeutic range of 0.3-0.7 units/ml). PLEASE REFERENCE THE PHARMACY PROTOCOL FOR DOSING. Performed By: #### A DIFF, TROPHS, GFR, BMP, MDW, CBC, PBNP, ANEU #### [address] [address] BMPon 02-01-2024 BUN/Creatinine Ratio 14.8 ratio Normal 10.0-22.0 [facility] ([place]) Comment on above: Performed By: #### A DIFF, TROPHS, GFR, BMP, MDW, CBC, PBNP, ANEU #### [address] [address] Calcium [Mass/Vol] 8.8 mg/dL Normal 8.7-10.4 [facility] ([place]) Comment on above: Performed By: #### A DIFF, TROPHS, GFR, BMP, MDW, CBC, PBNP, ANEU #### [address] [address] Chloride [Moles/Vol] 100 mmol/L Normal 98-110 [facility] ([place]) Comment on above: Performed By: #### A DIFF, TROPHS, GFR, BMP, MDW, CBC, PBNP, ANEU #### [address] [address] CO2 [Moles/Vol] 32 mmol/L Normal 22-32 [facility] [place] Comment on above: Performed By: #### A DIFF, TROPHS, GFR, BMP, MDW, CBC, PBNP, ANEU #### [address] [address] Creatinine [Mass/Vol] 1.15 mg/dL Normal 0.60-1.40 [facility] ([place]) Comment on above: Result Comment: Test ing performed on [employer] analyzer using enzymatic creatinine methodology. Performed By: #### A DIFF, TROPHS, GFR, BMP, MDW, CBC, PBNP, ANEU #### [address] [address] Electrolyte Balance 5.0 mEq/L Normal 4.0-15.0 [facility] ([place]) Comment on above: Performed By: #### A DIFF, TROPHS, GFR, BMP, MDW, CBC, PBNP, ANEU #### [address] [address] Glucose [Mass/Vol] 124 mg/dL High 70-110 [facility] ([place]) Comment on above: Performed By: #### A DIFF, TROPHS, GFR, BMP, MDW, CBC, PBNP, ANEU #### [address] [address] Potassium [Moles/Vol] 3.4 mmol/L Low 3.5-5.0 [facility] ([place]) Comment on above: Performed By: #### A DIFF, TROPHS, GFR, BMP, MDW, CBC, PBNP, ANEU #### [address] [address] Sodium [Moles/Vol] 137 mmol/L Normal 136-145 [facility] ([place]) Comment on above: Performed By: #### A DIFF, TROPHS, GFR, BMP, MDW, CBC, PBNP, ANEU #### [address] [address] Urea nitrogen [Mass/Vol] 17.0 mg/dL Normal 8.0-22.0 [facility] ([place] Comment on above: Performed By: #### A DIFF, TROPHS, GFR, BMP, MDW, CBC, PBNP, ANEU #### [address] [address] CBCon 02-01-2024 Erythrocyte distribution width (RBC) [Ratio] 16.2 % High 11.5-15.5 [facility] ([place] Comment on above: Performed By: #### A DIFF, TROPHS, GFR, BMP, MDW, CBC, PBNP, ANEU #### [address] [address] Hematocrit (Bld) [Volume fraction] 40.5 % Normal 40.0-52.0 [facility] ([place] Comment on above: Performed By: #### A DIFF, TROPHS, GFR, BMP, MDW, CBC, PBNP, ANEU #### [address] [address] Hgb 13.0 G/dL Normal 13.0-17.5 [facility] ([place] Comment on above: Performed By: #### A DIFF, TROPHS, GFR, BMP, MDW, CBC, PBNP, ANEU #### [address] [address] MCH (RBC) [Entitic mass] 26.0 pg Low 27.0-33.0 [facility] [place] Comment on above: Performed By: #### A DIFF, TROPHS, GFR, BMP, MDW, CBC, PBNP, ANEU #### [address] [address] MCHC 32.2 G/dL Normal 32.0-36.0 [facility] [place] Comment on above: Performed By: #### A DIFF, TROPHS, GFR, BMP, MDW, CBC, PBNP, ANEU #### [address] [address] MCV (RBC) [Entitic vol] 80.6 fL Low 81.0-100.0 A [facility] ([place]) Comment on above: Performed By: #### A DIFF, TROPHS, GFR, BMP, MDW, CBC, PBNP, ANEU #### [place] [address] Platelet 161 10 3/mcL Normal 150-450 [facility] ([place]) Comment on above: Performed By: #### A DIFF, TROPHS, GFR, BMP, MDW, CBC, PBNP, ANEU #### [address] [address] Platelet mean volume (Bld) [Entitic vol] 6.8 fL Normal 6.4-10.5 [facility] ([place]) Comment on above: Performed By: #### A DIFF, TROPHS, GFR, BMP, MDW, CBC, PBNP, ANEU #### [facility] [address] [place], [place] [address] RBC 5.02 10 6/mcL Normal 4.50-6.00 [facility] ([place]) Comment on above: Performed By: #### A DIFF, TROPHS, GFR, BMP, MDW, CBC, PBNP, ANEU #### [facility] [address], [place] [address] WBC 6.9 10 3/mcL Normal 4.5-10.8 [facility] ([place]) Comment on above: Performed By: #### A DIFF, TROPHS, GFR, BMP, MDW, CBC, PBNP, ANEU #### [id number] [place], [place] [address] LABORATORYOrdered By: SYSTEM SYSTEM on 02-01-2024 aPTT [...] above: Interpretive Data: T esting performed on [employer] Voy[employer] CH analyzer using enzymatic creatinine methodology. Electrolyte [...] 02-01-2024 Magnesium [Mass/Vol] 2.2 mg/dL Normal 1.6-2.4 [facility] ([place]) Comment on above: Performed By: #### A DIFF, TROPHS, GFR, BMP, MDW, CBC, PBNP, ANEU #### [address] [address] .Auto Diffon 01-31-2024 Basophil, Absolute 0.1 10 3/mcL Normal 0.0-0.3 [facility] ([place]) Comment on above: Performed By: #### A DIFF, TROPHS, GFR, BMP, MDW, CBC, PBNP, ANEU #### [address] [address] Basophils/100 WBC (Bld) 1.0 % Normal 0.0-2.5 A [facility] ([place]) Comment on above: Performed By: #### A DIFF, TROPHS, GFR, BMP, MDW, CBC, PBNP, ANEU #### [address] [address] Eosinophil, Absolute 0.1 10 3/mcL Normal 0.0-0.7 [facility] ([place]) Comment on above: Performed By: #### A DIFF, TROPHS, GFR, BMP, MDW, CBC, PBNP, ANEU #### [address] [address] Eosinophils/100 WBC (Bld) 1.1 % Normal 0.0-6.0 [facility] [place] Comment on above: Performed By: #### A DIFF, TROPHS, GFR, BMP, MDW, CBC, PBNP, ANEU #### [address] [address] Lymphocyte, Absolute 3.0 10 3/mcL Normal 0.9-4.3 [facility] ([place]) Comment on above: Performed By: #### A DIFF, TROPHS, GFR, BMP, MDW, CBC, PBNP, ANEU #### [address] [address] Lymphocytes/100 WBC (Bld) 22.7 % Normal 20.0-40.0 [facility] [place] Comment on above: Performed By: #### A DIFF, TROPHS, GFR, BMP, MDW, CBC, PBNP, ANEU #### [address] [address] Monocyte, Absolute 1.4 10 3/mcL Normal 0.1-1.4 [facility] ([place]) Comment on above: Performed By: #### A DIFF, TROPHS, GFR, BMP, MDW, CBC, PBNP, ANEU #### [address] [address] Monocytes/100 WBC (Bld) 11.0 % Normal 2.0-13.0 [facility] ([place]) Comment on above: Performed By: #### A DIFF, TROPHS, GFR, BMP, MDW, CBC, PBNP, ANEU #### [address] [address] Neutrophils/100 WBC (Bld) 64.2 % Normal 50.0-75.0 [facility] [place] Comment on above: Performed By: #### A DIFF, TROPHS, GFR, BMP, MDW, CBC, PBNP, ANEU #### [address] [address] .GFRon 01-31-2024 GFR 46 ml/min/1.73sqm Normal [facility] [place] Comment on above: Result Comment: GFR Population [...] GFR, BMP, MDW, CBC, PBNP, ANEU #### [address] [address] GFR Non- 38 ml/min/1.73sqm Normal [facility] ([place] Comment on above: Result Comment: GFR Population [...] GFR, BMP, MDW, CBC, PBNP, ANEU #### [address] [address] .NEUABSon 01-31-2024 Neutrophil, Absolute 8.5 10 3/mcL High 2.3-8.1 [facility] ([place]) Comment on above: Performed By: #### A DIFF, TROPHS, GFR, BMP, MDW, CBC, PBNP, ANEU #### [address] [address] APTTon 01-31-2024 aPTT Coag (Bld) [Time] 34.5 s Normal 25.0-35.0 [facility] ([place]) Comment on above: Result Comment: For Heparin anticoagulation therapy, the recommended therapeutic range is: 54-77 seconds (APTT Correlation with Anti-Xa therapeutic range of 0.3-0.7 units/ml). PLEASE REFERENCE THE PHARMACY PROTOCOL FOR DOSING. Performed By: #### A DIFF, TROPHS, GFR, BMP, MDW, CBC, PBNP, ANEU #### [address] [address] aPTT Coag (Bld) [Time] 33.9 s Normal 25.0-35.0 [facility] ([place]) Comment on above: Result Comment: For Heparin anticoagulation therapy, the recommended therapeutic range is: 54-77 seconds (APTT Correlation with Anti-Xa therapeutic range of 0.3-0.7 units/ml). PLEASE REFERENCE THE PHARMACY PROTOCOL FOR DOSING. Performed By: #### A DIFF, TROPHS, GFR, BMP, MDW, CBC, PBNP, ANEU #### [address] [address] aPTT Coag (Bld) [Time] 26.2 s Normal 25.0-35.0 [facility] ([place]) Comment on above: Result Comment: For Heparin anticoagulation therapy, the recommended therapeutic range is: 54-77 seconds (APTT Correlation with Anti-Xa therapeutic range of 0.3-0.7 units/ml). PLEASE REFERENCE THE PHARMACY PROTOCOL FOR DOSING. Performed By: #### A DIFF, TROPHS, GFR, BMP, MDW, CBC, PBNP, ANEU #### [address] [address] CAIONon 01-31-2024 Calcium Ionized 1.07 mmol/L Low 1.12-1.32 [facility] [place] Comment on above: Performed By: #### T ROPHS, CMP, CAION, LAC, CBC, ADIFF, GFR, PHOS, MG, ANEU #### [address] [address] CBCon 01-31-2024 Erythrocyte distribution width (RBC) [Ratio] 16.3 % High 11.5-15.5 [facility] [place] Comment on above: Performed By: #### A DIFF, TROPHS, GFR, BMP, MDW, CBC, PBNP, ANEU #### [address] [address] Hematocrit (Bld) [Volume fraction] 42.8 % Normal 40.0-52.0 [facility] [place] Comment on above: Performed By: #### A DIFF, TROPHS, GFR, BMP, MDW, CBC, PBNP, ANEU #### [address] [address] Hgb 14.0 G/dL Normal 13.0-17.5 [facility] [place] Comment on above: Performed By: #### A DIFF, TROPHS, GFR, BMP, MDW, CBC, PBNP, ANEU #### [address] [address] MCH (RBC) [Entitic mass] 25.9 pg Low 27.0-33.0 [facility] [place]) Comment on above: Performed By: #### A DIFF, TROPHS, GFR, BMP, MDW, CBC, PBNP, ANEU #### [address] [address] MCHC 32.6 G/dL Normal 32.0-36.0 [facility] [place]) Comment on above: Performed By: #### A DIFF, TROPHS, GFR, BMP, MDW, CBC, PBNP, ANEU #### [address] [address] MCV (RBC) [Entitic vol] 79.5 fL Low 81.0-100.0 A [facility] ([place]) Comment on above: Performed By: #### A DIFF, TROPHS, GFR, BMP, MDW, CBC, PBNP, ANEU #### [address] [address] Platelet 270 10 3/mcL Normal 150-450 [facility] ([place]) Comment on above: Performed By: #### A DIFF, TROPHS, GFR, BMP, MDW, CBC, PBNP, ANEU #### [address] [address] Platelet mean volume (Bld) [Entitic vol] 7.0 fL Normal 6.4-10.5 [facility] ([place]) Comment on above: Performed By: #### A DIFF, TROPHS, GFR, BMP, MDW, CBC, PBNP, ANEU #### [address] [address] RBC 5.39 10 6/mcL Normal 4.50-6.00 [facility] ([place]) Comment on above: Performed By: #### A DIFF, TROPHS, GFR, BMP, MDW, CBC, PBNP, ANEU #### [address] [address] WBC 13.2 10 3/mcL High 4.5-10.8 [facility] ([place]) Comment on above: Performed By: #### A DIFF, TROPHS, GFR, BMP, MDW, CBC, PBNP, ANEU #### [address] [address] CMPon 01-31-2024 Albumin Level 3.0 G/dL Low 3.2-4.8 [facility] ([place]) Comment on above: Performed By: #### A DIFF, TROPHS, GFR, BMP, MDW, CBC, PBNP, ANEU #### [address] [address] Albumin/Globulin [Mass ratio] 0.8 {ratio} Low 0.9-1.6 [facility] [place] Comment on above: Performed By: #### A DIFF, TROPHS, GFR, BMP, MDW, CBC, PBNP, ANEU #### [address] [address] ALP [Catalytic activity/Vol] 77 U/L Normal 38-126 [facility] ([place]) Comment on above: Performed By: #### A DIFF, TROPHS, GFR, BMP, MDW, CBC, PBNP, ANEU #### [address] [address] ALT/SGPT <8 Low 12-55 [facility] ([place]) Comment on above: Performed By: #### A DIFF, TROPHS, GFR, BMP, MDW, CBC, PBNP, ANEU #### [address] [address] AST [Catalytic activity/Vol] 12 U/L Normal 8-34 [facility] ([place]) Comment on above: Performed By: #### A DIFF, TROPHS, GFR, BMP, MDW, CBC, PBNP, ANEU #### [address] [address] Bili Total 0.40 mg/dL Normal 0.20-1.20 [facility] ([place]) Comment on above: Result Comment: Use of this assay is not recommended for patients undergoing treatment with eltrombopag due to the potential for falsely elevated results. Performed By: #### A DIFF, TROPHS, GFR, BMP, MDW, CBC, PBNP, ANEU #### [address] [address] BUN/Creatinine Ratio 11.2 ratio Normal 10.0-22.0 [facility] ([place]) Comment on above: Performed By: #### A DIFF, TROPHS, GFR, BMP, MDW, CBC, PBNP, ANEU #### [address] [address] Calcium [Mass/Vol] 8.8 mg/dL Normal 8.7-10.4 [facility] ([place]) Comment on above: Performed By: #### A DIFF, TROPHS, GFR, BMP, MDW, CBC, PBNP, ANEU #### [address] [address] Chloride [Moles/Vol] 100 mmol/L Normal 98-110 [facility] ([place]) Comment on above: Performed By: #### A DIFF, TROPHS, GFR, BMP, MDW, CBC, PBNP, ANEU #### [address] [address] CO2 [Moles/Vol] 29 mmol/L Normal 22-32 [facility] [place] Comment on above: Performed By: #### A DIFF, TROPHS, GFR, BMP, MDW, CBC, PBNP, ANEU #### [address] [address] Creatinine [Mass/Vol] 1.87 mg/dL High 0.60-1.40 [facility] ([place]) Comment on above: Result Comment: Test ing performed on [employer] analyzer using enzymatic creatinine methodology. Performed By: #### A DIFF, TROPHS, GFR, BMP, MDW, CBC, PBNP, ANEU #### [address] [address] Electrolyte Balance 8.0 mEq/L Normal 4.0-15.0 [facility] ([place]) Comment on above: Performed By: #### A DIFF, TROPHS, GFR, BMP, MDW, CBC, PBNP, ANEU #### [address] [address] Globulin 3.7 G/dL Normal 1.5-3.8 [facility] ([place]) Comment on above: Performed By: #### A DIFF, TROPHS, GFR, BMP, MDW, CBC, PBNP, ANEU #### [address] [address] Glucose [Mass/Vol] 133 mg/dL High 70-110 [facility] ([place]) Comment on above: Performed By: #### A DIFF, TROPHS, GFR, BMP, MDW, CBC, PBNP, ANEU #### [address] [address] Potassium [Moles/Vol] 3.6 mmol/L Normal 3.5-5.0 [facility] ([place]) Comment on above: Performed By: #### A DIFF, TROPHS, GFR, BMP, MDW, CBC, PBNP, ANEU #### [address] [address] Sodium [Moles/Vol] 137 mmol/L Normal 136-145 [facility] ([place]) Comment on above: Performed By: #### A DIFF, TROPHS, GFR, BMP, MDW, CBC, PBNP, ANEU #### [address] [address] Total Protein 6.7 G/dL Normal 5.7-8.2 [facility] ([place]) Comment on above: Result Comment: No te - New Reference Range in effect 19 Performed By: #### A DIFF, TROPHS, GFR, BMP, MDW, CBC, PBNP, ANEU #### [address] [address] Urea nitrogen [Mass/Vol] 21.0 mg/dL Normal 8.0-22.0 [facility] ([place]) Comment on above: Performed By: #### A DIFF, TROPHS, GFR, BMP, MDW, CBC, PBNP, ANEU #### [address] [address] CVFLURVon 01-31-2024 FLU A PCR Negative Normal Negative [facility] ([place]) Comment on above: Result Comment: [place] s [id number] Performed By: #### A DIFF, TROPHS, GFR, BMP, MDW, CBC, PBNP, ANEU #### [place] [address] FLU B PCR Negative Normal Negative [facility] ([place]) Comment on above: Result Comment: Note s [id number] Performed By: #### A DIFF, TROPHS, GFR, BMP, MDW, CBC, PBNP, ANEU #### [place] [address] RSV PCR Negative Normal Negative [facility] ([place]) Comment on above: Result Comment: [place] [id number] Performed By: #### A DIFF, TROPHS, GFR, BMP, MDW, CBC, PBNP, ANEU #### [place] [address] SARS-CoV-2 (COVID-19) RNA ROSE+probe Ql (Unsp spec) Negative Normal Negative [facility] ([place]) Comment on above: Result Comment: [place] [id number] This test has been authorized by FDA [...] BMP, MDW, CBC, PBNP, ANEU #### [place] [address] [address] LABORATORYOrdered By: SYSTEM SYSTEM on 01-31-2024 aPTT [...] above: Interpretive Data: T esting performed on [employer] analyzer using enzymatic creatinine methodology. Electrolyte Balance [...] Comment on above: Interpretive Data: Baljinder linn [employer] (CHEST, 1992, 102:[id number]) [...] ng/L Male: 0-54 ng/L Testing performed on [employer] analyzer using direct chemiluminescent technology. Urea nitrogen [Mass/Vol] 21.0 mg/dL Normal 8.0 - 22.0 mg/dL AH ADM SS Urea nitrogen/Creatinine [Mass ratio] 11.2 ratio Normal 10.0 - 22.0 ratio AH ADM SS WBC (Bld) [#/Vol] 13.2 103/mcL High 4.5 - 10.8 10^3/mcL AH Workflow SS LABORATORYOrdered By: Yoanna Coleman on 01-31-2024 Blood Glucose Testing Reason Routine (01/31/24 7:30 AM) [facility] Glucose [Mass/Vol] 146 mg/dL High 70 - 110 mg/dL [facility] LABORATORYOrdered By: Jacqueline Ospina on 01-31-2024 FLUAV RNA ROSE+probe Ql (Resp) Negative 15 (01/31/24 4:30 AM) Normal Negative AH Auto Viro/Sero SS Comment on above: Result Comment: [place] [id number] FLUBV RNA ROSE+probe Ql (Resp) Negative 16 (01/31/24 4:30 AM) Normal Negative AH Auto Viro/Sero SS Comment on above: Result Comment: [place] [id number] RSV PCR Negative 17 (01/31/24 4:30 AM) Normal Negative AH Auto Viro/Sero SS Comment on above: Result Comment: [place] [id number] SARS-CoV-2 (COVID-19) RNA ROSE+probe Ql (Resp) Negative 13, 14 (01/31/24 4:30 AM) Normal Negative AH Auto Viro/Sero SS Comment on above: Result Comment: Note s [id number] Interpretive Data: T his test has been [...] 1.07 mmol/L Low 1.12 - 1.32 mmol/L [facility] Comm LABORATORYOrdered By: Roshan Galarza on 01-31-2024 Blood Glucose Testing Reason Routine (01/31/24 2:48 AM) [facility] Glucose [Mass/Vol] 153 mg/dL High 70 - 110 mg/dL [facility] LACon 01-31-2024 Lactic Acid Lvl 1.2 mmol/L Normal 0.5-2.2 [facility] [place] Comment on above: Result Comment: Spec imen hemolyzed. Results may be affected. Performed By: #### A DIFF, TROPHS, GFR, BMP, MDW, CBC, PBNP, ANEU #### [address] [address] MGon 01-31-2024 Magnesium [Mass/Vol] 1.5 mg/dL Low 1.6-2.4 [facility] ([place]) Comment on above: Performed By: #### A DIFF, TROPHS, GFR, BMP, MDW, CBC, PBNP, ANEU #### [address] [address] No Panel Informationon 01-30 Microscopic examination of blood, culture Culture has been received in lab and is no growth to date. Routine cultures are held for 5 days. [facility] Phosphate [Mass/Vol] 3.1 mg/dL Normal 2.4-5.1 [facility] ([place]) Comment on above: Result Comment: No te - New Reference Range in effect 19 Performed By: #### A DIFF, TROPHS, GFR, BMP, MDW, CBC, PBNP, ANEU #### [address] [address] PROon 01-31-2024 INR Coag (PPP) [Relative time] 1.3 {INR} Normal [facility] ([place]) Comment on above: Result Comment: [employer] (CHEST, 1992, [id number]) recommended therapeutic range for oral anticoagulant therapy is: LOW RISK: Prophylaxis of venous thrombosis INR: 2.0-3.0 Treatment of pulmonary embolism 2.0-3.0 Prevention of systemic embolism 2.0-3.0 HIGH RISK: Mechanical prosthetic valves 2.5-3.5 Performed By: #### A DIFF, TROPHS, GFR, BMP, MDW, CBC, PBNP, ANEU #### [address] [address] PT Coag (PPP) [Time] 14.7 s High 9.0-14.4 [facility] ([place]) Comment on above: Result Comment: Effe ctive 12/11/07, Protime results may be affected by some antibiotics (i.e. Ciprofloxacin, Azithromycin, Bactrim) which may potentiate the action of oral anticoagulants, with further increases in Protime/INR. Performed By: #### A DIFF, TROPHS, GFR, BMP, MDW, CBC, PBNP, ANEU #### [address] [address] [facility] 01-31-2024 High Sensitivity Troponin I 4 ng/L Normal 0-54 [facility] ([place]) Comment on above: Result Comment: High Sensitive Troponin I Reference Ranges: Female: 0-34 ng/L Male: 0-54 ng/L Testing performed on [employer] analyzer using direct chemiluminescent technology. Performed By: #### A DIFF, TROPHS, GFR, BMP, MDW, CBC, PBNP, ANEU #### [address] [address] .Auto Diffon 01-30-2024 Basophil, Absolute 0.2 10 3/mcL Normal 0.0-0.2 [facility] ([place]) Comment on above: Performed By: #### A DIFF, TROPHS, GFR, BMP, MDW, CBC, PBNP, ANEU #### [address] [address] Basophils/100 WBC (Bld) 1.1 % Normal 0.0-2.5 A [facility] ([place]) Comment on above: Performed By: #### A DIFF, TROPHS, GFR, BMP, MDW, CBC, PBNP, ANEU #### [address] [address] Eosinophil, Absolute 0.1 10 3/mcL Normal 0.0-0.4 [facility] ([place]) Comment on above: Performed By: #### A DIFF, TROPHS, GFR, BMP, MDW, CBC, PBNP, ANEU #### [address] [address] Eosinophils/100 WBC (Bld) 0.7 % Normal 0.0-7.0 [facility] ([place]) Comment on above: Performed By: #### A DIFF, TROPHS, GFR, BMP, MDW, CBC, PBNP, ANEU #### [address] [address] Lymphocyte, Absolute 2.8 10 3/mcL Normal 0.8-3.9 [facility] ([place]) Comment on above: Performed By: #### A DIFF, TROPHS, GFR, BMP, MDW, CBC, PBNP, ANEU #### [address] [address] Lymphocytes/100 WBC (Bld) 20.2 % Normal 10.0-50.0 [facility] ([place]) Comment on above: Performed By: #### A DIFF, TROPHS, GFR, BMP, MDW, CBC, PBNP, ANEU #### [address] [address] Monocyte, Absolute 1.7 10 3/mcL High 0.2-1.0 [facility] ([place]) Comment on above: Performed By: #### A DIFF, TROPHS, GFR, BMP, MDW, CBC, PBNP, ANEU #### [address] [address] Monocytes/100 WBC (Bld) 12.2 % Normal 1.7-13.0 A [facility] ([place]) Comment on above: Performed By: #### A DIFF, TROPHS, GFR, BMP, MDW, CBC, PBNP, ANEU #### [address] [address] Neutrophils/100 WBC (Bld) 65.8 % Normal 37.0-80.0 [facility] ([place]) Comment on above: Performed By: #### A DIFF, TROPHS, GFR, BMP, MDW, CBC, PBNP, ANEU #### [address] [address] .GFRon 01-30-2024 GFR 38 ml/min/1.73sqm Normal [facility] ([place]) Comment on above: Result Comment: GFR Population [...] GFR, BMP, MDW, CBC, PBNP, ANEU #### [address] [address] GFR Non- 31 ml/min/1.73sqm Normal [facility] ([place]) Comment on above: Result Comment: [...] GFR, BMP, MDW, CBC, PBNP, ANEU #### [address] [address] .MDWon 01-30-2024 Monocyte Distribution Width 21.35 High 0.00-20.00 [facility] ([place]) Comment on above: Result Comment: For adults in ED, MDW>20.0 may be associated with a higher risk of sepsis during the first 12hrs of hospital admission Performed By: #### A DIFF, TROPHS, GFR, BMP, MDW, CBC, PBNP, ANEU #### [address] [address] .NEUABSon 01-30-2024 Neutrophil, Absolute 9.2 10 3/mcL High 2.9-6.2 [facility] ([place]) Comment on above: Performed By: #### A DIFF, TROPHS, GFR, BMP, MDW, CBC, PBNP, ANEU #### [address] [address] .Urinalysis Microscopic (AO) on 01-30-2024 UA RBC None Seen Normal None Seen [facility] [place] Comment on above: Performed By: #### A DIFF, TROPHS, GFR, BMP, MDW, CBC, PBNP, ANEU #### [address] [address] UA Squam Epithelial None Seen Normal None Seen [facility] ([place]) Comment on above: Performed By: #### A DIFF, TROPHS, GFR, BMP, MDW, CBC, PBNP, ANEU #### [address] [address] UA WBC 0-5 Abnormal None Seen [facility] [place] Comment on above: Performed By: #### A DIFF, TROPHS, GFR, BMP, MDW, CBC, PBNP, ANEU #### [address] [address] BGon 01-30-2024 Base excess Calc (Bld) [Moles/Vol] 4.3 mmol/L Normal [facility] [place] Comment on above: Performed By: #### A DIFF, TROPHS, GFR, BMP, MDW, CBC, PBNP, ANEU #### [address] [address] CO2 [Moles/Vol] 29.8 mmol/L Normal 22.0-30.0 [facility] ([place] Comment on above: Performed By: #### A DIFF, TROPHS, GFR, BMP, MDW, CBC, PBNP, ANEU #### [address] [address] HCO3 (Bld) [Moles/Vol] 28.5 mmol/L Normal 21.0-29.0 A [facility] ([place] Comment on above: Performed By: #### A DIFF, TROPHS, GFR, BMP, MDW, CBC, PBNP, ANEU #### [address] [address] Oxygen (Bld) [Partial pressure] 51.0 mm[Hg] Low 74.0-108.0 [facility] [place] Comment on above: Performed By: #### A DIFF, TROPHS, GFR, BMP, MDW, CBC, PBNP, ANEU #### [address] [address] Oxygen saturation in Blood 88.8 % Low 92.0-96.0 [facility] [place] Comment on above: Performed By: #### A DIFF, TROPHS, GFR, BMP, MDW, CBC, PBNP, ANEU #### [address] [address] pCO2 41.0 mmHg Normal 32.0-46.0 [facility] [place] Comment on above: Performed By: #### A DIFF, TROPHS, GFR, BMP, MDW, CBC, PBNP, ANEU #### [address] [address] pH (Bld) 7.460 [pH] Normal 7.380-7.460 [facility] ([place]) Comment on above: Performed By: #### A DIFF, TROPHS, GFR, BMP, MDW, CBC, PBNP, ANEU #### [address] [address] BMPon 01-30-2024 BUN/Creatinine Ratio 8 ratio Normal 7-27 [facility] ([place]) Comment on above: Performed By: #### A DIFF, TROPHS, GFR, BMP, MDW, CBC, PBNP, ANEU #### [address] [address] Calcium [Mass/Vol] 8.8 mg/dL Normal 8.4-10.2 [facility] ([place]) Comment on above: Performed By: #### A DIFF, TROPHS, GFR, BMP, MDW, CBC, PBNP, ANEU #### [address] [address] Chloride [Moles/Vol] 97 mmol/L Low 98-107 [facility] ([place]) Comment on above: Performed By: #### A DIFF, TROPHS, GFR, BMP, MDW, CBC, PBNP, ANEU #### [address] [address] CO2 [Moles/Vol] 31 mmol/L High 22-29 [facility] [place] Comment on above: Performed By: #### A DIFF, TROPHS, GFR, BMP, MDW, CBC, PBNP, ANEU #### [address] [address] Creatinine [Mass/Vol] 2.22 mg/dL High 0.70-1.30 [facility] ([place]) Comment on above: Result Comment: Test ing performed on Siemens Dimension EXL analyzer using a modified kinetic Ciera technique. Performed By: #### A DIFF, TROPHS, GFR, BMP, MDW, CBC, PBNP, ANEU #### [address] [address] Electrolyte Balance 6.0 mEq/L Normal 4.0-15.0 [facility] ([place]) Comment on above: Performed By: #### A DIFF, TROPHS, GFR, BMP, MDW, CBC, PBNP, ANEU #### [address] [address] Glucose [Mass/Vol] 112 mg/dL High 70-105 [facility] ([place]) Comment on above: Performed By: #### A DIFF, TROPHS, GFR, BMP, MDW, CBC, PBNP, ANEU #### [address] [address] Potassium [Moles/Vol] 3.7 mmol/L Normal 3.5-5.1 [facility] ([place]) Comment on above: Performed By: #### A DIFF, TROPHS, GFR, BMP, MDW, CBC, PBNP, ANEU #### [address] [address] Sodium [Moles/Vol] 134 mmol/L Low 136-145 [facility] ([place]) Comment on above: Performed By: #### A DIFF, TROPHS, GFR, BMP, MDW, CBC, PBNP, ANEU #### [address] [address] Urea nitrogen [Mass/Vol] 17 mg/dL Normal 7-18 [facility] [place] Comment on above: Performed By: #### A DIFF, TROPHS, GFR, BMP, MDW, CBC, PBNP, ANEU #### [address] [address] CBCon 01-30-2024 Erythrocyte distribution width (RBC) [Ratio] 16.5 % High 11.5-14.5 [facility] [place] Comment on above: Performed By: #### A DIFF, TROPHS, GFR, BMP, MDW, CBC, PBNP, ANEU #### [address] [address] Hematocrit (Bld) [Volume fraction] 45.3 % Normal 42.0-52.0 [facility] [place] Comment on above: Performed By: #### A DIFF, TROPHS, GFR, BMP, MDW, CBC, PBNP, ANEU #### [address] [address] Hgb 14.9 G/dL Normal 14.0-18.0 [facility] [place] Comment on above: Performed By: #### A DIFF, TROPHS, GFR, BMP, MDW, CBC, PBNP, ANEU #### [place] [address] MCH (RBC) [Entitic mass] 26.6 pg Low 27.0-31.2 [facility] [place] Comment on above: Performed By: #### A DIFF, TROPHS, GFR, BMP, MDW, CBC, PBNP, ANEU #### [place] [address] MCHC 33.0 G/dL Normal 31.8-35.4 [facility] [place] Comment on above: Performed By: #### A DIFF, TROPHS, GFR, BMP, MDW, CBC, PBNP, ANEU #### [place] [address] MCV (RBC) [Entitic vol] 80.7 fL Normal 80.0-94.0 [facility] ([place]) Comment on above: Performed By: #### A DIFF, TROPHS, GFR, BMP, MDW, CBC, PBNP, ANEU #### [place] [id number] Platelet 263 10 3/mcL Normal 130-400 [facility] ([place]) Comment on above: Performed By: #### A DIFF, TROPHS, GFR, BMP, MDW, CBC, PBNP, ANEU #### [address] [address] Platelet mean volume (Bld) [Entitic vol] 6.8 fL Low 7.4-10.4 [facility] ([place]) Comment on above: Performed By: #### A DIFF, TROPHS, GFR, BMP, MDW, CBC, PBNP, ANEU #### [address] [address] RBC 5.61 10 6/mcL Normal 4.04-6.13 [facility] ([place]) Comment on above: Performed By: #### A DIFF, TROPHS, GFR, BMP, MDW, CBC, PBNP, ANEU #### [address] [address] WBC 14.0 10 3/mcL High 4.6-10.8 [facility] ([place]) Comment on above: Performed By: #### A DIFF, TROPHS, GFR, BMP, MDW, CBC, PBNP, ANEU #### [address] [address] [address] HEAD OR BRAIN W/O CONTRAS Ton [...] 01/30/2024 10:16:46 PM Ordering Provider: SAMY JONES [facility] ([place]) LABORATORYOrdered By: Jil Morales on 01-30-2024 Appearance [...] ng/L Male: 0-76 ng/L Testing performed on [employer] using a homogeneous sandwich chemiluminescent immunoassay based on [employer] technology. Lactate [Moles/Vol] 1.0 mmol/L Normal 0.4 [...] ng/L Male: 0-76 ng/L Testing performed on [employer] using a homogeneous sandwich chemiluminescent immunoassay based on [employer] technology. Urea nitrogen [Mass/Vol] 17 mg/dL Normal [...] Acid Lvl 1.0 mmol/L Normal 0.4-2.0 [facility] [place] Comment on above: Performed By: #### L AC #### [address] [address] No Panel Informationon 01-29 Microscopic examination of blood, culture Culture has been received in lab and is no growth to date. Routine cultures are held for 5 days. [facility] PBNPon 01-30-2024 Natriuretic peptide B (Bld) [Mass/Vol] 1822 pg/mL High 0-125 [facility] ([place]) Comment on above: Result Comment: NT-p roBNP results of less than 300 pg/mL effectively rules out acute congestive heart failure with 99% negative predictive value. Performed By: #### A DIFF, TROPHS, GFR, BMP, MDW, CBC, PBNP, ANEU #### [id number] [place], [place] [address] TROPHSon 01-30-2024 High Sensitivity Troponin I 7 ng/L Normal 0-76 [facility] ([place]) Comment on above: Result Comment: High Sensitive Troponin I Reference Ranges: Female: 0-51 ng/L Male: 0-76 ng/L Testing performed on [employer] using a homogeneous sandwich chemiluminescent immunoassay based on [employer] technology. Performed By: #### A DIFF, TROPHS, GFR, BMP, MDW, CBC, PBNP, ANEU #### [address] [address] High Sensitivity Troponin I 8 ng/L Normal 0-76 [facility] ([place]) Comment on above: Result Comment: High Sensitive Troponin I Reference Ranges: Female: 0-51 ng/L Male: 0-76 ng/L Testing performed on [employer] using a homogeneous sandwich chemiluminescent immunoassay based on [employer] technology. Performed By: #### A DIFF, TROPHS, GFR, BMP, MDW, CBC, PBNP, ANEU #### [address] [address] UAon 01-30-2024 Color (U) Yellow Normal [facility] ([place]) Comment on above: Performed By: #### A DIFF, TROPHS, GFR, BMP, MDW, CBC, PBNP, ANEU #### [address] [address] Glucose (U) [Mass/Vol] Negative Normal Negative [facility] ([place]) Comment on above: Performed By: #### A DIFF, TROPHS, GFR, BMP, MDW, CBC, PBNP, ANEU #### [address] [address] Ketones Ql (U) Negative Normal Negative [facility] ([place]) Comment on above: Performed By: #### A DIFF, TROPHS, GFR, BMP, MDW, CBC, PBNP, ANEU #### [address] [address] UA Appear Clear Normal Clear [facility] ([place] Comment on above: Performed By: #### A DIFF, TROPHS, GFR, BMP, MDW, CBC, PBNP, ANEU #### [address] [address] UA Bili Small Abnormal Negative [facility] ([place] Comment on above: Performed By: #### A DIFF, TROPHS, GFR, BMP, MDW, CBC, PBNP, ANEU #### [address] [address] UA Blood Trace Abnormal Negative [facility] [place] Comment on above: Performed By: #### A DIFF, TROPHS, GFR, BMP, MDW, CBC, PBNP, ANEU #### [address] [address] UA Leuk Est Trace Abnormal Negative [facility] ([place]) Comment on above: Performed By: #### A DIFF, TROPHS, GFR, BMP, MDW, CBC, PBNP, ANEU #### [address] [address] UA Nitrite Negative Normal Negative [facility] ([place] Comment on above: Performed By: #### A DIFF, TROPHS, GFR, BMP, MDW, CBC, PBNP, ANEU #### [address] [address] UA pH 6.0 Normal 5.0 - 8.0 [facility] ([place] Comment on above: Performed By: #### A DIFF, TROPHS, GFR, BMP, MDW, CBC, PBNP, ANEU #### [address] [address] UA Protein 100 mg/dL Abnormal Negative [facility] ([place] Comment on above: Performed By: #### A DIFF, TROPHS, GFR, BMP, MDW, CBC, PBNP, ANEU #### [address] [address] UA Spec Grav 1.025 Normal 1.015-1.025 [facility] ([place]) Comment on above: Performed By: #### A DIFF, TROPHS, GFR, BMP, MDW, CBC, PBNP, ANEU #### [address] [address] UA Specimen Type Void Normal [facility] ([place]) Comment on above: Performed By: #### A DIFF, TROPHS, GFR, BMP, MDW, CBC, PBNP, ANEU #### [address] [address] UA Urobilinogen 1.0 E.U./dL Normal 0.2-1.0 [facility] ([place]) Comment on above: Performed By: #### A DIFF, TROPHS, GFR, BMP, W, CBC, PBNP, ANEU #### [place] [address] [address] XR CHEST 1 VIEWon 01-30-2024 XR CHEST [...] Provider: SAMY JONES Normal [facility] ([place]) .GFRon 08-08-2023 GFR Non- 105 ml/min/1.73sqm Normal [facility] ([place]) Comment on above: Result Comment: GFR Population [...] GFR, BMP, MDW, CBC, PBNP, ANEU #### [address] [address] GFR 127 ml/min/1.73sqm Normal [facility] ([place]) Comment on above: Result Comment: GFR Population [...] GFR, BMP, MDW, CBC, PBNP, ANEU #### [address] [address] A1Con 08-08-2023 HbA1c (Bld) [Mass fraction] 6.7 % High 4.3-6.4 [facility] ([place]) Comment on above: Performed By: #### A DIFF, TROPHS, GFR, BMP, MDW, CBC, PBNP, ANEU #### [address] [address] CMPon 08-08-2023 Albumin Level 3.4 G/dL Low 3.5-5.0 [facility] ([place]) Comment on above: Performed By: #### A DIFF, TROPHS, GFR, BMP, MDW, CBC, PBNP, ANEU #### [address] [address] Albumin/Globulin [Mass ratio] 0.9 {ratio} Low 1.1-2.5 [facility] ([place] Comment on above: Performed By: #### A DIFF, TROPHS, GFR, BMP, MDW, CBC, PBNP, ANEU #### [address] [place] [address] ALP [Catalytic activity/Vol] 87 U/L Normal 40-135 [facility] ([place]) Comment on above: Performed By: #### A DIFF, TROPHS, GFR, BMP, MDW, CBC, PBNP, ANEU #### [address] [address] ALT [Catalytic activity/Vol] 19 U/L Normal 16-63 [facility] ([place]) Comment on above: Performed By: #### A DIFF, TROPHS, GFR, BMP, MDW, CBC, PBNP, ANEU #### [address] [address] AST [Catalytic activity/Vol] 15 U/L Normal 10-40 [facility] ([place]) Comment on above: Performed By: #### A DIFF, TROPHS, GFR, BMP, MDW, CBC, PBNP, ANEU #### [address] [address] Bili Total 0.5 mg/dL Normal 0.2-1.0 [facility] ([place]) Comment on above: Result Comment: Use of this assay is not recommended for patients undergoing treatment with eltrombopag due to the potential for falsely elevated results. Performed By: #### A DIFF, TROPHS, GFR, BMP, MDW, CBC, PBNP, ANEU #### [address] [address] BUN/Creatinine Ratio 14 ratio Normal 7-27 [facility] ([place]) Comment on above: Performed By: #### A DIFF, TROPHS, GFR, BMP, MDW, CBC, PBNP, ANEU #### [address] [address] Calcium [Mass/Vol] 8.7 mg/dL Normal 8.4-10.2 [facility] ([place]) Comment on above: Performed By: #### A DIFF, TROPHS, GFR, BMP, MDW, CBC, PBNP, ANEU #### [address] [address] Chloride [Moles/Vol] 100 mmol/L Normal 98-107 [facility] ([place]) Comment on above: Performed By: #### A DIFF, TROPHS, GFR, BMP, MDW, CBC, PBNP, ANEU #### [address] [address] CO2 [Moles/Vol] 34 mmol/L High 22-29 [facility] [place] Comment on above: Performed By: #### A DIFF, TROPHS, GFR, BMP, MDW, CBC, PBNP, ANEU #### [address] [address] Creatinine [Mass/Vol] 0.78 mg/dL Normal 0.70-1.30 [facility] ([place]) Comment on above: Performed By: #### A DIFF, TROPHS, GFR, BMP, MDW, CBC, PBNP, ANEU #### [address] [address] Electrolyte Balance 6.0 mEq/L Normal 4.0-15.0 [facility] ([place]) Comment on above: Performed By: #### A DIFF, TROPHS, GFR, BMP, MDW, CBC, PBNP, ANEU #### [address] [address] Globulin 3.8 G/dL Normal [facility] ([place]) Comment on above: Performed By: #### A DIFF, TROPHS, GFR, BMP, MDW, CBC, PBNP, ANEU #### [address] [address] Glucose [Mass/Vol] 121 mg/dL High 70-105 [facility] ([place]) Comment on above: Performed By: #### A DIFF, TROPHS, GFR, BMP, MDW, CBC, PBNP, ANEU #### [address] [address] Potassium [Moles/Vol] 4.2 mmol/L Normal 3.5-5.1 [facility] ([place]) Comment on above: Performed By: #### A DIFF, TROPHS, GFR, BMP, MDW, CBC, PBNP, ANEU #### [address] [address] Sodium [Moles/Vol] 140 mmol/L Normal 136-145 [facility] ([place]) Comment on above: Performed By: #### A DIFF, TROPHS, GFR, BMP, MDW, CBC, PBNP, ANEU #### [address] [address] Total Protein 7.2 G/dL Normal 6.4-8.2 [facility] ([place]) Comment on above: Performed By: #### A DIFF, TROPHS, GFR, BMP, MDW, CBC, PBNP, ANEU #### [address] [address] Urea nitrogen [Mass/Vol] 11 mg/dL Normal 7-18 [facility] ([place]) Comment on above: Performed By: #### A DIFF, TROPHS, GFR, BMP, MDW, CBC, PBNP, ANEU #### [address] [address] LABORATORYOrdered By: Jr Fontaine on 08-08-2023 Albumin DL <= 20 mg/L (U) [Mass/Vol] 378 mcg/dL Invalid Interpretation Code AO ADM SS Albumin/Creatinine DL <= 20 mg/L (U) [Mass ratio] 12 mcg/mg Normal 0 - 30 mcg/mg AO ADM SS Creatinine (U) [Mass/Vol] 30.5 mg/dL Low 39.0 - 259.0 mg/dL AO ADM SS LIPIDon 08-08-2023 Cholesterol [Mass/Vol] 156 mg/dL Normal 0-200 [facility] ([place]) Comment on above: Result Comment: Chol esterol Reference Interval: Less than 200 Desirable 200-239 Borderline high risk 240 and above High risk Performed By: #### A DIFF, TROPHS, GFR, BMP, MDW, CBC, PBNP, ANEU #### [address] [address] Cholesterol in HDL [Mass/Vol] 28 mg/dL Low 40-60 [facility] ([place]) Comment on above: Performed By: #### A DIFF, TROPHS, GFR, BMP, MDW, CBC, PBNP, ANEU #### [address] [address] Cholesterol in LDL [Mass/Vol] 93 mg/dL Normal 0-130 [facility] ([place]) Comment on above: Performed By: #### A DIFF, TROPHS, GFR, BMP, MDW, CBC, PBNP, ANEU #### [address] [address] Triglyceride [Mass/Vol] 175 mg/dL High 0-150 A [facility] ([place]) Comment on above: Result Comment: Trig lyceride Reference Interval: Less than 150 Normal 150-199 Borderline high risk 200-499 High risk 500 or higher Very high risk Performed By: #### A DIFF, TROPHS, GFR, BMP, MDW, CBC, PBNP, ANEU #### [address] [address] MALBRon 08-08-2023 U Creatinine 30.5 mg/dL Low 39.0-259.0 [facility] [place] ([place]) Comment on above: Performed By: #### A DIFF, TROPHS, GFR, BMP, MDW, CBC, PBNP, ANEU #### [address] [address] U Microalb 378 mcg/dL Normal [facility] ([place]) Comment on above: Performed By: #### A DIFF, TROPHS, GFR, BMP, MDW, CBC, PBNP, ANEU #### [address] [address] U Ratio Alb/Cre 12 mcg/mg Normal 0-30 [facility] [place] Comment on above: Performed By: #### A DIFF, TROPHS, GFR, BMP, MDW, CBC, PBNP, ANEU #### [address] [address] CVFLURVon 06-13-2023 FLU A PCR Negative Normal Negative [facility] ([place]) Comment on above: Performed By: #### A DIFF, TROPHS, GFR, BMP, MDW, CBC, PBNP, ANEU #### [place] [address] FLU B PCR Negative Normal Negative [facility] ([place]) Comment on above: Performed By: #### A DIFF, TROPHS, GFR, BMP, MDW, CBC, PBNP, ANEU #### [address] [address] RSV PCR Negative Normal Negative [facility] ([place]) Comment on above: Performed By: #### A DIFF, TROPHS, GFR, BMP, MDW, CBC, PBNP, ANEU #### [place] [address] SARS-CoV-2 (COVID-19) RNA ROSE+probe Ql (Unsp spec) Negative Normal Negative [facility] ([place]) Comment on above: Result Comment: This test [...] GFR, BMP, MDW, CBC, PBNP, ANEU #### [place] [address] LABORATORYOrdered By: Giovana Fischer on 06-13-2023 FLUAV [...] Ordering Provider: DEMI Kate [facility] ([place]) .Auto Diffon 06-09-2023 Basophil, Absolute 0.1 10 3/mcL Normal 0.0-0.3 [facility] ([place]) Comment on above: Performed By: #### A DIFF, TROPHS, GFR, BMP, MDW, CBC, PBNP, ANEU #### [address] [address] Basophils/100 WBC (Bld) 0.8 % Normal 0.0-2.5 A [facility] ([place]) Comment on above: Performed By: #### A DIFF, TROPHS, GFR, BMP, MDW, CBC, PBNP, ANEU #### [address] [address] Eosinophil, Absolute 0.1 10 3/mcL Normal 0.0-0.7 [facility] ([place]) Comment on above: Performed By: #### A DIFF, TROPHS, GFR, BMP, MDW, CBC, PBNP, ANEU #### [address] [address] Eosinophils/100 WBC (Bld) 2.0 % Normal 0.0-6.0 [facility] ([place]) Comment on above: Performed By: #### A DIFF, TROPHS, GFR, BMP, MDW, CBC, PBNP, ANEU #### [address] [address] Lymphocyte, Absolute 1.0 10 3/mcL Normal 0.9-4.3 [facility] ([place]) Comment on above: Performed By: #### A DIFF, TROPHS, GFR, BMP, MDW, CBC, PBNP, ANEU #### [address] [address] Lymphocytes/100 WBC (Bld) 15.5 % Low 20.0-40.0 [facility] ([place]) Comment on above: Performed By: #### A DIFF, TROPHS, GFR, BMP, MDW, CBC, PBNP, ANEU #### [address] [address] Monocyte, Absolute 0.7 10 3/mcL Normal 0.1-1.4 [facility] ([place]) Comment on above: Performed By: #### A DIFF, TROPHS, GFR, BMP, MDW, CBC, PBNP, ANEU #### [address] [address] Monocytes/100 WBC (Bld) 11.1 % Normal 2.0-13.0 A [facility] ([place]) Comment on above: Performed By: #### A DIFF, TROPHS, GFR, BMP, MDW, CBC, PBNP, ANEU #### [address] [address] Neutrophils/100 WBC (Bld) 70.6 % Normal 50.0-75.0 [facility] ([place]) Comment on above: Performed By: #### A DIFF, TROPHS, GFR, BMP, MDW, CBC, PBNP, ANEU #### [address] [address] .GFRon 06-09-2023 GFR Non- >60 Normal [facility] ([place]) Comment on above: Result Comment: GFR Population [...] GFR, BMP, MDW, CBC, PBNP, ANEU #### [address] [address] GFR >60 Normal [facility] ([place]) Comment on above: Result Comment: GFR Population [...] GFR, BMP, MDW, CBC, PBNP, ANEU #### [address] [address] .NEUABSon 06-09-2023 Neutrophil, Absolute 4.7 10 3/mcL Normal 2.3-8.1 [facility] ([place]) Comment on above: Performed By: #### A DIFF, TROPHS, GFR, BMP, MDW, CBC, PBNP, ANEU #### [address] [address] BMPon 06-09-2023 BUN/Creatinine Ratio 11.8 ratio Normal 10.0-22.0 [facility] ([place]) Comment on above: Performed By: #### A DIFF, TROPHS, GFR, BMP, MDW, CBC, PBNP, ANEU #### [address] [address] Calcium [Mass/Vol] 9.0 mg/dL Normal 8.7-10.4 [facility] ([place]) Comment on above: Performed By: #### A DIFF, TROPHS, GFR, BMP, MDW, CBC, PBNP, ANEU #### [address] [address] Chloride [Moles/Vol] 102 mmol/L Normal 98-110 [facility] ([place]) Comment on above: Performed By: #### A DIFF, TROPHS, GFR, BMP, MDW, CBC, PBNP, ANEU #### [address] [address] CO2 [Moles/Vol] 35 mmol/L High 22-32 [facility] [place] Comment on above: Performed By: #### A DIFF, TROPHS, GFR, BMP, MDW, CBC, PBNP, ANEU #### [address] [address] Creatinine [Mass/Vol] 0.85 mg/dL Normal 0.60-1.40 [facility] ([place]) Comment on above: Performed By: #### A DIFF, TROPHS, GFR, BMP, MDW, CBC, PBNP, ANEU #### [address] [address] Electrolyte Balance 0.0 mEq/L Low 4.0-15.0 [facility] ([place]) Comment on above: Performed By: #### A DIFF, TROPHS, GFR, BMP, MDW, CBC, PBNP, ANEU #### [address] [address] Glucose [Mass/Vol] 146 mg/dL High 70-110 [facility] ([place]) Comment on above: Performed By: #### A DIFF, TROPHS, GFR, BMP, MDW, CBC, PBNP, ANEU #### [address] [address] Potassium [Moles/Vol] 4.8 mmol/L Normal 3.5-5.0 [facility] ([place]) Comment on above: Performed By: #### A DIFF, TROPHS, GFR, BMP, MDW, CBC, PBNP, ANEU #### [address] [address] Sodium [Moles/Vol] 137 mmol/L Normal 136-145 [facility] ([place]) Comment on above: Performed By: #### A DIFF, TROPHS, GFR, BMP, MDW, CBC, PBNP, ANEU #### [address] [address] Urea nitrogen [Mass/Vol] 10.0 mg/dL Normal 8.0-22.0 [facility] ([place]) Comment on above: Result Comment: Spec imen hemolyzed. Results may be falsely elevated. Performed By: #### A DIFF, TROPHS, GFR, BMP, MDW, CBC, PBNP, ANEU #### [address] [address] CBCon 06-09-2023 Erythrocyte distribution width (RBC) [Ratio] 13.3 % Normal 11.5-15.5 [facility] ([place]) Comment on above: Performed By: #### A DIFF, TROPHS, GFR, BMP, MDW, CBC, PBNP, ANEU #### [address] [address] Hematocrit (Bld) [Volume fraction] 45.9 % Normal 40.0-52.0 [facility] ([place]) Comment on above: Performed By: #### A DIFF, TROPHS, GFR, BMP, MDW, CBC, PBNP, ANEU #### [place] [id number] Hgb 15.6 G/dL Normal 13.0-17.5 [facility] ([place]) Comment on above: Performed By: #### A DIFF, TROPHS, GFR, BMP, MDW, CBC, PBNP, ANEU #### [address] [address] MCH (RBC) [Entitic mass] 29.0 pg Normal 27.0-33.0 [facility] ([place]) Comment on above: Performed By: #### A DIFF, TROPHS, GFR, BMP, MDW, CBC, PBNP, ANEU #### [address] [address] MCHC 33.9 G/dL Normal 32.0-36.0 [facility] ([place]) Comment on above: Performed By: #### A DIFF, TROPHS, GFR, BMP, MDW, CBC, PBNP, ANEU #### [address] [address] MCV (RBC) [Entitic vol] 85.5 fL Normal 81.0-100.0 A [facility] ([place]) Comment on above: Performed By: #### A DIFF, TROPHS, GFR, BMP, MDW, CBC, PBNP, ANEU #### [address] [address] Platelet 174 10 3/mcL Normal 150-450 [facility] ([place]) Comment on above: Performed By: #### A DIFF, TROPHS, GFR, BMP, MDW, CBC, PBNP, ANEU #### [address] [address] Platelet mean volume (Bld) [Entitic vol] 7.5 fL Normal 6.4-10.5 [facility] ([place]) Comment on above: Performed By: #### A DIFF, TROPHS, GFR, BMP, MDW, CBC, PBNP, ANEU #### [address] [address] RBC 5.37 10 6/mcL Normal 4.50-6.00 [facility] ([place]) Comment on above: Performed By: #### A DIFF, TROPHS, GFR, BMP, MDW, CBC, PBNP, ANEU #### [address] [address] WBC 6.6 10 3/mcL Normal 4.5-10.8 [facility] [place] [facility] ([place]) Comment on above: Performed By: #### A DIFF, TROPHS, GFR, BMP, MDW, CBC, PBNP, ANEU #### [address] [address] LABORATORYOrdered By: Adenike Swain on 06-09-2023 Blood Glucose Testing Reason Routine (06/09/23 4:18 PM) [facility] Glucose [Mass/Vol] 114 mg/dL High 70 - 110 mg/dL [facility] LABORATORYOrdered By: Cris Jang on 06-09-2023 Blood Glucose Testing Reason Routine (06/09/23 7:51 AM) [facility] Glucose [Mass/Vol] 142 mg/dL High 70 - 110 mg/dL [facility] LABORATORYOrdered By: SYSTEM SYSTEM on [...] 06-09-2023 Magnesium [Mass/Vol] 2.1 mg/dL Normal 1.6-2.4 [facility] ([place]) Comment on above: Performed By: #### A DIFF, TROPHS, GFR, BMP, MDW, CBC, PBNP, ANEU #### [address] [address] .Auto Diffon 06-08-2023 Basophil, Absolute 0.1 10 3/mcL Normal 0.0-0.3 [facility] ([place]) Comment on above: Performed By: #### A DIFF, TROPHS, GFR, BMP, MDW, CBC, PBNP, ANEU #### [address] [address] Basophils/100 WBC (Bld) 0.7 % Normal 0.0-2.5 A [facility] ([place]) Comment on above: Performed By: #### A DIFF, TROPHS, GFR, BMP, MDW, CBC, PBNP, ANEU #### [address] [address] Eosinophil, Absolute 0.1 10 3/mcL Normal 0.0-0.7 [facility] ([place]) Comment on above: Performed By: #### A DIFF, TROPHS, GFR, BMP, MDW, CBC, PBNP, ANEU #### [address] [address] Eosinophils/100 WBC (Bld) 1.9 % Normal 0.0-6.0 [facility] ([place]) Comment on above: Performed By: #### A DIFF, TROPHS, GFR, BMP, MDW, CBC, PBNP, ANEU #### [address] [address] Lymphocyte, Absolute 1.3 10 3/mcL Normal 0.9-4.3 [facility] ([place]) Comment on above: Performed By: #### A DIFF, TROPHS, GFR, BMP, MDW, CBC, PBNP, ANEU #### [address] [address] Lymphocytes/100 WBC (Bld) 16.1 % Low 20.0-40.0 [facility] ([place]) Comment on above: Performed By: #### A DIFF, TROPHS, GFR, BMP, MDW, CBC, PBNP, ANEU #### [address] [address] Monocyte, Absolute 0.8 10 3/mcL Normal 0.1-1.4 [facility] ([place]) Comment on above: Performed By: #### A DIFF, TROPHS, GFR, BMP, MDW, CBC, PBNP, ANEU #### [address] [address] Monocytes/100 WBC (Bld) 9.9 % Normal 2.0-13.0 [facility] ([place]) Comment on above: Performed By: #### A DIFF, TROPHS, GFR, BMP, MDW, CBC, PBNP, ANEU #### [address] [address] Neutrophils/100 WBC (Bld) 71.4 % Normal 50.0-75.0 [facility] ([place]) Comment on above: Performed By: #### A DIFF, TROPHS, GFR, BMP, MDW, CBC, PBNP, ANEU #### [address] [address] .GFRon 06-08-2023 GFR >60 Normal [facility] ([place]) Comment on above: Result Comment: GFR Population [...] GFR, BMP, MDW, CBC, PBNP, ANEU #### [address] [address] GFR Non- >60 Normal [facility] ([place]) Comment on above: Result Comment: GFR Population [...] GFR, BMP, MDW, CBC, PBNP, ANEU #### [address] [address] .NEUABSon 06-08-2023 Neutrophil, Absolute 5.7 10 3/mcL Normal 2.3-8.1 [facility] ([place]) Comment on above: Performed By: #### A DIFF, TROPHS, GFR, BMP, MDW, CBC, PBNP, ANEU #### [address] [address] BMPon 06-08-2023 BUN/Creatinine Ratio 10.7 ratio Normal 10.0-22.0 [facility] ([place]) Comment on above: Performed By: #### A DIFF, TROPHS, GFR, BMP, MDW, CBC, PBNP, ANEU #### [address] [address] Calcium [Mass/Vol] 8.9 mg/dL Normal 8.7-10.4 [facility] ([place]) Comment on above: Performed By: #### A DIFF, TROPHS, GFR, BMP, MDW, CBC, PBNP, ANEU #### [address] [address] Chloride [Moles/Vol] 100 mmol/L Normal 98-110 [facility] ([place]) Comment on above: Performed By: #### A DIFF, TROPHS, GFR, BMP, MDW, CBC, PBNP, ANEU #### [address] [address] CO2 [Moles/Vol] 36 mmol/L High 22-32 [facility] [place] Comment on above: Performed By: #### A DIFF, TROPHS, GFR, BMP, MDW, CBC, PBNP, ANEU #### [address] [address] Creatinine [Mass/Vol] 0.75 mg/dL Normal 0.60-1.40 [facility] ([place]) Comment on above: Performed By: #### A DIFF, TROPHS, GFR, BMP, MDW, CBC, PBNP, ANEU #### [address] [address] Electrolyte Balance 1.0 mEq/L Low 4.0-15.0 [facility] ([place]) Comment on above: Performed By: #### A DIFF, TROPHS, GFR, BMP, MDW, CBC, PBNP, ANEU #### [address] [address] Glucose [Mass/Vol] 160 mg/dL High 70-110 [facility] ([place]) Comment on above: Performed By: #### A DIFF, TROPHS, GFR, BMP, MDW, CBC, PBNP, ANEU #### [address] [address] Potassium [Moles/Vol] 3.4 mmol/L Low 3.5-5.0 [facility] ([place]) Comment on above: Result Comment: Spec imen slightly hemolyzed. Performed By: #### A DIFF, TROPHS, GFR, BMP, MDW, CBC, PBNP, ANEU #### [address] [address] Sodium [Moles/Vol] 137 mmol/L Normal 136-145 [facility] ([place]) Comment on above: Performed By: #### A DIFF, TROPHS, GFR, BMP, MDW, CBC, PBNP, ANEU #### [address] [address] Urea nitrogen [Mass/Vol] 8.0 mg/dL Normal 8.0-22.0 [facility] [place] Comment on above: Performed By: #### A DIFF, TROPHS, GFR, BMP, MDW, CBC, PBNP, ANEU #### [address] [address] CBCon 06-08-2023 Erythrocyte distribution width (RBC) [Ratio] 13.1 % Normal 11.5-15.5 [facility] [place] Comment on above: Performed By: #### A DIFF, TROPHS, GFR, BMP, MDW, CBC, PBNP, ANEU #### [address] [address] Hematocrit (Bld) [Volume fraction] 45.7 % Normal 40.0-52.0 [facility] [place] Comment on above: Performed By: #### A DIFF, TROPHS, GFR, BMP, MDW, CBC, PBNP, ANEU #### [place] [address] Hgb 15.6 G/dL Normal 13.0-17.5 [facility] [place] Comment on above: Performed By: #### A DIFF, TROPHS, GFR, BMP, MDW, CBC, PBNP, ANEU #### [place] [address] MCH (RBC) [Entitic mass] 29.1 pg Normal 27.0-33.0 [facility] [place] Comment on above: Performed By: #### A DIFF, TROPHS, GFR, BMP, MDW, CBC, PBNP, ANEU #### [place] [address] MCHC 34.3 G/dL Normal 32.0-36.0 [facility] [place] Comment on above: Performed By: #### A DIFF, TROPHS, GFR, BMP, MDW, CBC, PBNP, ANEU #### [place] [address] MCV (RBC) [Entitic vol] 85.0 fL Normal 81.0-100.0 A [facility] ([place]) Comment on above: Performed By: #### A DIFF, TROPHS, GFR, BMP, MDW, CBC, PBNP, ANEU #### [place] [address] Platelet 200 10 3/mcL Normal 150-450 [facility] ([place]) Comment on above: Performed By: #### A DIFF, TROPHS, GFR, BMP, MDW, CBC, PBNP, ANEU #### [place] [address] Platelet mean volume (Bld) [Entitic vol] 7.5 fL Normal 6.4-10.5 [facility] ([place]) Comment on above: Performed By: #### A DIFF, TROPHS, GFR, BMP, MDW, CBC, PBNP, ANEU #### [place] [address] RBC 5.37 10 6/mcL Normal 4.50-6.00 [facility] ([place]) Comment on above: Performed By: #### A DIFF, TROPHS, GFR, BMP, MDW, CBC, PBNP, ANEU #### [facility] [address], [place] [address] WBC 7.9 10 3/mcL Normal 4.5-10.8 [facility] ([place]) Comment on above: Performed By: #### A DIFF, TROPHS, GFR, BMP, MDW, CBC, PBNP, ANEU #### [place] [address] [place], [place] [address] LABORATORYOrdered By: Adenike Swain on 06-08-2023 Blood Glucose Testing Reason Routine (06/08/23 9:18 PM) [facility] Glucose [Mass/Vol] 173 mg/dL High 70 - 110 mg/dL [facility] LABORATORYOrdered By: SYSTEM SYSTEM on [...] (S/P/Bld) [Vol rate/Area] ml/min/1.73sqm Invalid Interpretation Code [facility] Comment on above: Interpretive Data: GFR [...] (S/P/Bld) [Vol rate/Area] ml/min/1.73sqm Invalid Interpretation Code [facility] Comment on above: Interpretive Data: GFR [...] 06-08-2023 Magnesium [Mass/Vol] 2.1 mg/dL Normal 1.6-2.4 [facility] ([place]) Comment on above: Performed By: #### A DIFF, TROPHS, GFR, BMP, MDW, CBC, PBNP, ANEU #### [address] [address] .Auto Diffon 06-07-2023 Basophil, Absolute 0.1 10 3/mcL Normal 0.0-0.3 [facility] ([place]) Comment on above: Performed By: #### A DIFF, TROPHS, GFR, BMP, MDW, CBC, PBNP, ANEU #### [address] [address] Basophils/100 WBC (Bld) 0.6 % Normal 0.0-2.5 A [facility] ([place]) Comment on above: Performed By: #### A DIFF, TROPHS, GFR, BMP, MDW, CBC, PBNP, ANEU #### [address] [address] Eosinophil, Absolute 0.2 10 3/mcL Normal 0.0-0.7 [facility] ([place]) Comment on above: Performed By: #### A DIFF, TROPHS, GFR, BMP, MDW, CBC, PBNP, ANEU #### [address] [address] Eosinophils/100 WBC (Bld) 1.6 % Normal 0.0-6.0 [facility] ([place]) Comment on above: Performed By: #### A DIFF, TROPHS, GFR, BMP, MDW, CBC, PBNP, ANEU #### [address] [address] Lymphocyte, Absolute 1.4 10 3/mcL Normal 0.9-4.3 [facility] ([place]) Comment on above: Performed By: #### A DIFF, TROPHS, GFR, BMP, MDW, CBC, PBNP, ANEU #### [address] [address] Lymphocytes/100 WBC (Bld) 14.0 % Low 20.0-40.0 [facility] ([place]) Comment on above: Performed By: #### A DIFF, TROPHS, GFR, BMP, MDW, CBC, PBNP, ANEU #### [address] [address] Monocyte, Absolute 0.6 10 3/mcL Normal 0.1-1.4 [facility] ([place]) Comment on above: Performed By: #### A DIFF, TROPHS, GFR, BMP, MDW, CBC, PBNP, ANEU #### [address] [address] Monocytes/100 WBC (Bld) 6.4 % Normal 2.0-13.0 A [facility] ([place]) Comment on above: Performed By: #### A DIFF, TROPHS, GFR, BMP, MDW, CBC, PBNP, ANEU #### [address] [address] Neutrophils/100 WBC (Bld) 77.4 % High 50.0-75.0 [facility] ([place]) Comment on above: Performed By: #### A DIFF, TROPHS, GFR, BMP, MDW, CBC, PBNP, ANEU #### [address] [address] .GFRon 06-07-2023 GFR >60 Normal [facility] ([place]) Comment on above: Result Comment: GFR Population [...] GFR, BMP, MDW, CBC, PBNP, ANEU #### [address] [address] GFR Non- >60 Normal [facility] ([place]) Comment on above: Result Comment: GFR Population [...] GFR, BMP, MDW, CBC, PBNP, ANEU #### [address] [address] .NEUABSon 06-07-2023 Neutrophil, Absolute 7.7 10 3/mcL Normal 2.3-8.1 [facility] ([place]) Comment on above: Performed By: #### A DIFF, TROPHS, GFR, BMP, MDW, CBC, PBNP, ANEU #### [place] [address] CBCon 06-07-2023 Erythrocyte distribution width (RBC) [Ratio] 14.0 % Normal 11.5-15.5 [facility] ([place]) Comment on above: Performed By: #### A DIFF, TROPHS, GFR, BMP, MDW, CBC, PBNP, ANEU #### [address] [address] Hematocrit (Bld) [Volume fraction] 47.6 % Normal 40.0-52.0 [facility] ([place]) Comment on above: Performed By: #### A DIFF, TROPHS, GFR, BMP, MDW, CBC, PBNP, ANEU #### [address] [address] Hgb 16.3 G/dL Normal 13.0-17.5 [facility] ([place]) Comment on above: Performed By: #### A DIFF, TROPHS, GFR, BMP, MDW, CBC, PBNP, ANEU #### [address] [address] MCH (RBC) [Entitic mass] 29.1 pg Normal 27.0-33.0 [facility] ([place]) Comment on above: Performed By: #### A DIFF, TROPHS, GFR, BMP, MDW, CBC, PBNP, ANEU #### [address] [address] MCHC 34.2 G/dL Normal 32.0-36.0 [facility] ([place]) Comment on above: Performed By: #### A DIFF, TROPHS, GFR, BMP, MDW, CBC, PBNP, ANEU #### [place] [address] MCV (RBC) [Entitic vol] 84.9 fL Normal 81.0-100.0 [facility] ([place]) Comment on above: Performed By: #### A DIFF, TROPHS, GFR, BMP, MDW, CBC, PBNP, ANEU #### [address] [address] Platelet 228 10 3/mcL Normal 150-450 [facility] ([place]) Comment on above: Performed By: #### A DIFF, TROPHS, GFR, BMP, MDW, CBC, PBNP, ANEU #### [address] [address] Platelet mean volume (Bld) [Entitic vol] 8.0 fL Normal 6.4-10.5 [facility] ([place]) Comment on above: Performed By: #### A DIFF, TROPHS, GFR, BMP, MDW, CBC, PBNP, ANEU #### [place] [address] RBC 5.61 10 6/mcL Normal 4.50-6.00 [facility] ([place]) Comment on above: Performed By: #### A DIFF, TROPHS, GFR, BMP, MDW, CBC, PBNP, ANEU #### [place] [address] WBC 9.9 10 3/mcL Normal 4.5-10.8 [facility] ([place]) Comment on above: Performed By: #### A DIFF, TROPHS, GFR, BMP, MDW, CBC, PBNP, ANEU #### [address] [address] CMPon 06-07-2023 Albumin Level 3.3 G/dL Normal 3.2-4.8 [facility] ([place]) Comment on above: Order Comment: hemol yzed. needs redrawn Performed By: #### A DIFF, TROPHS, GFR, BMP, MDW, CBC, PBNP, ANEU #### [address] [address] Albumin/Globulin [Mass ratio] 0.9 {ratio} Normal 0.9-1.6 [facility] ([place]) Comment on above: Order Comment: hemol yzed. needs redrawn Performed By: #### A DIFF, TROPHS, GFR, BMP, MDW, CBC, PBNP, ANEU #### [address] [address] ALP [Catalytic activity/Vol] 93 U/L Normal 38-126 [facility] ([place]) Comment on above: Order Comment: hemol yzed. needs redrawn Performed By: #### A DIFF, TROPHS, GFR, BMP, MDW, CBC, PBNP, ANEU #### [address] [address] ALT [Catalytic activity/Vol] 13 U/L Normal 12-55 [facility] ([place]) Comment on above: Order Comment: hemol yzed. needs redrawn Performed By: #### A DIFF, TROPHS, GFR, BMP, MDW, CBC, PBNP, ANEU #### [address] [address] AST [Catalytic activity/Vol] 13 U/L Normal 8-34 [facility] ([place]) Comment on above: Order Comment: hemol yzed. needs redrawn Performed By: #### A DIFF, TROPHS, GFR, BMP, MDW, CBC, PBNP, ANEU #### [address] [address] Bili Total 0.30 mg/dL Normal 0.20-1.20 [facility] ([place]) Comment on above: Order Comment: hemol yzed. needs redrawn Result Comment: Use of this assay is not recommended for patients undergoing treatment with eltrombopag due to the potential for falsely elevated results. Performed By: #### A DIFF, TROPHS, GFR, BMP, MDW, CBC, PBNP, ANEU #### [address] [address] BUN/Creatinine Ratio 10.8 ratio Normal 10.0-22.0 [facility] ([place]) Comment on above: Order Comment: hemol yzed. needs redrawn Performed By: #### A DIFF, TROPHS, GFR, BMP, MDW, CBC, PBNP, ANEU #### [address] [address] Calcium [Mass/Vol] 8.8 mg/dL Normal 8.7-10.4 [facility] ([place]) Comment on above: Order Comment: hemol yzed. needs redrawn Performed By: #### A DIFF, TROPHS, GFR, BMP, MDW, CBC, PBNP, ANEU #### [address] [address] Chloride [Moles/Vol] 97 mmol/L Low 98-110 [facility] ([place]) Comment on above: Order Comment: hemol yzed. needs redrawn Performed By: #### A DIFF, TROPHS, GFR, BMP, MDW, CBC, PBNP, ANEU #### [address] [address] CO2 [Moles/Vol] 37 mmol/L High 22-32 [facility] [place] Comment on above: Order Comment: hemol yzed. needs redrawn Performed By: #### A DIFF, TROPHS, GFR, BMP, MDW, CBC, PBNP, ANEU #### [address] [address] Creatinine [Mass/Vol] 0.93 mg/dL Normal 0.60-1.40 [facility] ([place]) Comment on above: Order Comment: hemol yzed. needs redrawn Performed By: #### A DIFF, TROPHS, GFR, BMP, MDW, CBC, PBNP, ANEU #### [address] [address] Electrolyte Balance 3.0 mEq/L Low 4.0-15.0 [facility] ([place]) Comment on above: Order Comment: hemol yzed. needs redrawn Performed By: #### A DIFF, TROPHS, GFR, BMP, MDW, CBC, PBNP, ANEU #### [address] [address] Globulin 3.6 G/dL Normal 1.5-3.8 [facility] ([place]) Comment on above: Order Comment: hemol yzed. needs redrawn Performed By: #### A DIFF, TROPHS, GFR, BMP, MDW, CBC, PBNP, ANEU #### [address] [address] Glucose [Mass/Vol] 209 mg/dL High 70-110 [facility] ([place]) Comment on above: Order Comment: hemol yzed. needs redrawn Performed By: #### A DIFF, TROPHS, GFR, BMP, MDW, CBC, PBNP, ANEU #### [address] [address] Potassium [Moles/Vol] 3.6 mmol/L Normal 3.5-5.0 [facility] ([place]) Comment on above: Order Comment: hemol yzed. needs redrawn Result Comment: Spec imen slightly hemolyzed. Performed By: #### A DIFF, TROPHS, GFR, BMP, MDW, CBC, PBNP, ANEU #### [address] [address] Sodium [Moles/Vol] 137 mmol/L Normal 136-145 [facility] ([place]) Comment on above: Order Comment: hemol yzed. needs redrawn Performed By: #### A DIFF, TROPHS, GFR, BMP, MDW, CBC, PBNP, ANEU #### [address] [address] Total Protein 6.9 G/dL Normal 5.7-8.2 [facility] ([place]) Comment on above: Order Comment: hemol yzed. needs redrawn Result Comment: No te - New Reference Range in effect 19 Performed By: #### A DIFF, TROPHS, GFR, BMP, MDW, CBC, PBNP, ANEU #### [place] [id number] [place], [place] [address] Urea nitrogen [Mass/Vol] 10.0 mg/dL Normal 8.0-22.0 [facility] ([place]) Comment on above: Order Comment: hemol yzed. needs redrawn Performed By: #### A DIFF, TROPHS, GFR, BMP, MDW, CBC, PBNP, ANEU #### [address] [address] LABORATORYOrdered By: SYSTEM SYSTEM on 06-07-2023 Albumin [...] (S/P/Bld) [Vol rate/Area] ml/min/1.73sqm Invalid Interpretation Code [facility] Comment on above: Interpretive Data: GFR [...] 06-07-2023 Magnesium [Mass/Vol] 1.7 mg/dL Normal 1.6-2.4 [facility] ([place]) Comment on above: Performed By: #### A DIFF, TROPHS, GFR, BMP, MDW, CBC, PBNP, ANEU #### [address] [address] XR CHEST 1 VIEWon 05-05-2023 XR CHEST [...] Date: 05/05/2023 9:17:04 PM Ordering Provider: DEMI [facility] ([place]) XR RIBS 2 VIEWS RIGHTon XR RIBS [...] 05/05/2023 9:08:30 PM Ordering Provider: DEMI BETZAIDA [facility]) PBNPon 03-22-2023 Natriuretic peptide B (Bld) [Mass/Vol] 378 pg/mL High 0-125 [facility]) Comment on above: Result Comment: NT-p roBNP results of less than 300 pg/mL effectively rules out acute congestive heart failure with 99% negative predictive value. Performed By: #### A DIFF, TROPHS, GFR, BMP, MDW, CBC, PBNP, ANEU #### [address] [address] Influenza virus A and B and SARS-CoV-2 (COVID-19) Ag panel - Upper respiratory specimOrdered By: Nguyễn Al on 02-12-2023 SARS-CoV-2 (COVID-19) RNA ROSE+probe Ql (Resp) [facility] LABORATORYOrdered By: SYSTEM SYSTEM on 12-23-2022 [...] 150 mg/dL AO ADM SS LABORATORYOrdered By: Trendrating SYSTEM on 10-27-2022 Albumin BCP dye [Mass/Vol] [...] Auto (Unsp spec) [#/Vol] 1.50 10*3/uL 0.83-4.51 [facility] Basophil percentageOrdered B y: Dr. Brown on 10-23-2022 Basophils/100 WBC (Bld) 0.8 % 0-1 [facility] Chloride [Moles/Vol] 102 mmol/L 98-107 [facility] Eosinophils/100 WBC (Bld) 2.4 % 0-5 [facility] Glucose [Mass/Vol] 126 mg/dL 74-106 [facility] Comment on above: Fasting Glucose resu lt greater than or equal to 126 mg/dL suggests DIABETES MELLITUS per A.D.A. criteria. Neutrophils (Bld) [#/Vol] 5.4 10*3/uL 2.0-7.7 [facility] Neutrophils/100 WBC (Bld) 67.9 % 47-70 [facility] Potassium [Moles/Vol] 3.2 mmol/L 3.5-5.1 [facility] Sodium [Moles/Vol] 140 mmol/L 136-145 [facility] WBC (Bld) [#/Vol] 7.9 10*3/uL 4.4-11.0 [facility] Blood erythrocytes count (nu mber/volume)Ordered By: Dr. Brown on 10-23-2022 RBC (Bld) [#/Vol] 6.06 10*6/uL 4.6-6.2 [facility] Blood hemoglobin measurement (mass/volume)Ordered By: Dr. Brown on 10-23-2022 Hemoglobin (Bld) [Mass/Vol] 17.2 g/dL 13.0-16.5 [facility] Blood lymphocytes/100 leukoc ytesOrdered By: Dr. Brown on 10-23-2022 Lymphocytes/100 WBC (Bld) 19.0 % 19-41 [facility] Blood monocytes/100 leukocyt esOrdered By: Dr. Brown on 10-23-2022 Monocytes/100 WBC (Bld) 9.6 % 0-10 [facility] Blood platelet mean volumeOr dered By: Dr. Brown on 10-23-2022 Platelet mean volume (Bld) [Entitic vol] 10.3 fL 6.2-12.0 [facility] Determination of erythrocyte mean corpuscular volume (MCV)Ordered By: Dr. Brown on 10-23-2022 MCV (RBC) [Entitic vol] 89.6 fL 80-94 [facility] Hematocrit Auto (Bld) [Volum e fraction]Ordered By: Dr. Brown on 10-23-2022 Hematocrit (Bld) [Volume fraction] 54.3 % 40-54 [facility] Laboratory - Chemistry and C hemistry - challengeOrdered By: Dr. Brown on 10-23-2022 CO2 [Moles/Vol] 32.0 mmol/L 21.0-32.0 [facility] Natriuretic peptide B (Bld) [Mass/Vol] 182.2 pg/mL 0-100 [facility] Urea nitrogen/Creatinine [Mass ratio] 13.0 mg/mg 10-20 [facility] - Hematology and Cell countsOrdered By: Dr. Brown on 10-23-2022 Erythrocyte distribution width (RBC) [Entitic vol] 46.1 fL 35.1-43.9 [facility] Erythrocyte distribution width (RBC) [Ratio] 14.1 % 11.6-14.6 [facility] Immature granulocytes/100 WBC (Bld) 0.300 % 0.0-0.9 [facility] Comment on above: IG% - Immature Granu locytes (promyelocytes, myelocytes and metamyelocytes) > 1% indicates that a LEFT SHIFT is Present. MCH (RBC) [Entitic mass] 28.4 pg 27.0-32.0 [facility] Nucleated RBC/100 WBC (Bld) [Ratio] 0 % 0-5 [facility] MCHC Auto (RBC) [Mass/Vol]Or dered By: Dr. Brown on 10-23-2022 MCHC (RBC) [Mass/Vol] 31.7 g/dL 32-36 [facility] No Panel InformationOrdered By: Dr. Brown on 10-23-2022 Troponin I High Sensitivity 14 pg/mL 3.0-78.0 [facility] Comment on above: Please Note: New Faye t Units and Gender Specific Reference Ranges. For more information see Policy Stat Procedure [place] High Sensitivity Troponin (TNIH) and attachments. Estimated Creatinine Clearance Calc 104.04 ml/min [facility] Estimated GFR (MDRD) Amer 123 mL/min >60 [facility] Comment on above: GFR Calc Estimated GFR (MDRD) Non-Af Amer 102 mL/min >60 [facility] Comment on above: Non- GFR Calc Platelets bldOrdered By: Dr. Brown on 10-23-2022 Platelets (Bld) [#/Vol] 234 10*3/uL 150-450 [facility] Serum or plasma calcium scott urement (mass/volume)Ordered By: Dr. Brown on 10-23-2022 Calcium [Mass/Vol] 8.7 mg/dL 8.5-10.1 [facility] Serum or plasma creatinine m easurement (mass/volume)Ordered By: Dr. Brown on 10-23-2022 Creatinine [Mass/Vol] 0.84 mg/dL 0.70-1.30 [facility] Comment on above: The validity of the calculated GFR & GFRAA in patients over 70 years has not been determined. Clinical correlation is essential. Serum or plasma urea nitroge n measurement (mass/volume)Ordered By: Dr. Brown on 10-23-2022 Urea nitrogen [Mass/Vol] 11 mg/dL 7-18 [facility] Thin prep Papanicolaou smear with manual screeningOrdered By: Dr. Brown on 10-23-2022 Thin prep Papanicolaou smear with manual screening 6 5-15 [facility] Invasive Cardiology Clinic N oteon 08-24-2021 Invasive Cardiology Clinic Note . [facility] A Division of [facility] Gem Barr M.D., [place] [address] * Reason for VisitFOLLOW UP CHEST PAIN(1) [...] me to participate in your patient's care. Reactor Technician Statement: Transcribed for Dr. Barr by LEWIS , occupational therapy department chair. Electronic Signatures: Gem Barr) (Signed 11:31) Authored: Letterhead Option, Reason for Visit, Vital Signs, Allergies/Meds, History of Present Illness, Past Medical, Surgical and Family History, ROS, Physical Exam, Results, Assessment and Plan, Reactor Technician Statement Km Phan (Assistant Site Manager) (Entered 15:30) Entered: Letterhead Option, Reason for Visit, Vital Signs, Allergies/Meds, History of Pr (more content not included)... Normal [facility] Echocardiogram-Completeon Echocardiogram-Complete Study ID: [id number] [facility] [place] [address] Name: CARLOS ALBERTO KELLEY JR Study Date: 08/17/2021 07:55 AM BP: 152/92 mmHg Patient Location: [facility] HR: 84 : 1970 Gender: Male Height: [...] mmHg MV P1/2t-pr: 94.6 msec E/LatE': 9.4 \\[id number] [facility] Invasive Cardiology Clinic N oteon 08-02-2021 Invasive Cardiology Clinic Note . [facility] A Division of [facility] Gem Barr M.D., [place] [address] * Reason for VisitFOLLOW UP CHEST PAIN(1) [...] to con (more content not included)... Normal [facility] 01-29-2021 ER EMERGENCY ROOM NOTE CHIEF [...] up with his primary care physician and/or air export coordinator. Normal [facility] GLYCOHEMOGLOBINon 01-06-2021 HbA1c (Bld) [Mass fraction] 6.43 % High 4.60-6.30 [facility] Comment on above: Performed By: #### % A1c #### [facility] [address] [place] [address] SUE Flores MD LIPID PROFILE - FASTINGon Cholesterol [Mass/Vol] 152 mg/dL Normal <=200 [facility] Comment on above: Performed By: #### L IPID #### [facility] [address] [place] [address] SUE Flores MD Cholesterol in HDL [Mass/Vol] 28 mg/dL Low 40-60 [facility] Comment on above: Performed By: #### L IPID #### [facility] [address] [place] [address] SUE Flores MD Cholesterol in LDL [Mass/Vol] 85 mg/dL Normal 0-130 [facility] Comment on above: Performed By: #### L IPID #### [facility] [address] [place], [place] [id number] SUE Flores MD COMMENT Recommended (Desirable) < 130mg/dL Moderate Risk 130-159 mg/dL High Risk: >/= 130 mg/dL Normal [facility] Comment on above: Performed By: #### L IPID #### [facility] [address] [place] [address] SUE Flores MD Triglyceride [Mass/Vol] 198 mg/dL High <=150 [facility] Comment on above: Performed By: #### L IPID #### [facility] [address] [place] [address] SUE Flores MD RENAL FUNCTION PANELon 01-06 Albumin [Mass/Vol] 4.4 g/dL Normal 3.5-5.0 [facility] Comment on above: Performed By: #### R FP #### [facility] [address] [place] [address] SUE Flores MD Calcium [Mass/Vol] 9.6 mg/dL Normal 8.4-10.2 [facility] Comment on above: Performed By: #### R FP #### [facility] [address] [place] [address] SUE Flores MD Chloride [Moles/Vol] 96 mmol/L Low 98-107 [facility] Comment on above: Performed By: #### R FP #### [facility] [address] [place] [address] SUE Flores MD Creatinine [Mass/Vol] 0.9 mg/dL Normal 0.7-1.3 [facility] Comment on above: Performed By: #### R FP #### [facility] [address] [place] [address] SUE Flores MD ECO2 29 mmol/L Normal 22-30 [facility] Comment on above: Performed By: #### R FP #### [facility] [address] [place], [place] [id number] SUE Flores MD EGFR-AF SWED[place] 109 mL/min/1.73m 2 Normal >=60 [facility] Comment on above: Performed By: #### R FP #### [facility] [address] [place] [address] SUE Flores MD EGFR-NON AF SWEDISH 90 mL/min/1.73 m 2 Normal >=60 [facility] Comment on above: Performed By: #### R FP #### [facility] [address] [place], [place] [phone] SUE Flores MD Glucose [Mass/Vol] 146 mg/dL High 70-99 [facility] Comment on above: Performed By: #### R FP #### [facility] [address] [place] [address] SUE Flores MD Phosphate [Mass/Vol] 4.2 mg/dL Normal 2.5-4.5 [facility] Comment on above: Performed By: #### R FP #### [facility] [address] [place] [address] SUE Flores MD Potassium [Moles/Vol] 4.0 mmol/L Normal 3.5-5.0 [facility] Comment on above: Performed By: #### R FP #### [facility] [address] [place] [address] SUE Flores MD Sodium [Moles/Vol] 136 mmol/L Low 137-145 [facility] Comment on above: Performed By: #### R FP #### [facility] [address] [place], [place] [id number] SUE Flores MD Urea nitrogen [Mass/Vol] 13 mg/dL Normal 9-20 [facility] Comment on above: Performed By: #### R FP #### [facility] [address] [place], [place] [phone] SUE Flores MD CHEST TWO VIEWSon 11-09-2020 [...] DYER MD Date: 11/09/2020 3:55 PM Normal [facility] CBC PLT DIFFon 06-11-2020 BASO # 0.04 10 3/uL Normal 0.00-0.10 [facility] Comment on above: Performed By: #### C BC #### [facility] [address] [place] [address] SUE Flores MD Basophils/100 WBC (Bld) 0.5 % Normal 0.2-1.0 [facility] Comment on above: Performed By: #### C BC #### [facility] [address] [place] [address] SUE Flores MD EOS# 0.19 10 3/uL Normal 0.00-0.20 [facility] Comment on above: Performed By: #### C BC #### [facility] [address] [place] [address] SUE Flores MD Eosinophils/100 WBC (Bld) 2.3 % Normal 0.9-2.9 [facility] Comment on above: Performed By: #### C BC #### [facility] [address] [place] [address] SUE Flores MD Erythrocyte distribution width (RBC) [Ratio] 13.4 % Normal 11.5-15.5 [facility] Comment on above: Performed By: #### C BC #### [facility] [address] [place] [address] SUE Flores MD Hematocrit (Bld) [Volume fraction] 46.5 % Normal 42.0-52.0 [facility] Comment on above: Performed By: #### C BC #### [facility] [address] [place], [place] [phone] SUE Flores MD Hemoglobin (Bld) [Mass/Vol] 16.0 g/dL Normal 14.0-18.0 [facility] Comment on above: Performed By: #### C BC #### [facility] [address] [place] [address] SUE Flores MD IG# 0.04 10 3/uL Normal [facility] Comment on above: Performed By: #### C BC #### [facility] [address] [place] [address] SUE Flores MD IG% 0.5 % Normal [facility] Comment on above: Performed By: #### C BC #### [facility] [address] [place] [address] SUE Flores MD LYMPH# 1.41 10 3/uL Normal 1.30-2.90 [facility] Comment on above: Performed By: #### C BC #### [facility] [address] [place] [address] SUE Flores MD Lymphocytes/100 WBC (Bld) 17.4 % Low 20.5-45.5 [facility] Comment on above: Performed By: #### C BC #### [facility] [address] [place] [address] SUE Flores MD MCH (RBC) [Entitic mass] 30.1 pg Normal 27.0-31.0 [facility] Comment on above: Performed By: #### C BC #### [facility] [address] [place] [address] SUE Flores MD MCHC (RBC) [Mass/Vol] 34.4 g/dL Normal 32.0-36.0 [facility] Comment on above: Performed By: #### C BC #### [facility] [address] [place] [address] SUE Flores MD MCV (RBC) [Entitic vol] 87.6 fL Normal 80.0-94.[address] [facility] Comment on above: Performed By: #### C BC #### [facility] [address] [place] [address] SUE Flores MD MONO# 0.67 10 3/uL Normal 0.30-0.80 [facility] Comment on above: Performed By: #### C BC #### [facility] [address] [place] [address] SUE Flores MD Monocytes/100 WBC (Bld) 8.3 % Normal 5.5-11.7 [facility] Comment on above: Performed By: #### C BC #### [facility] [address] [place] [address] SUE Flores MD Morphology Rocky (Bld) [Interp] Normal [facility] Comment on above: Performed By: #### C BC #### [facility] [address] [place] [address] SUE Flores MD NEUT# 5.75 10 3/uL High 2.20-4.80 [facility] Comment on above: Performed By: #### C BC #### [facility] [address] [place] [address] SEU Flores MD Neutrophils/100 WBC (Bld) 71.0 % High 43.0-65.0 [facility] Comment on above: Performed By: #### C BC #### [facility] [address] [place] [address] SUE Flores MD NRBC# 0.00 10 3/uL Normal [facility] Comment on above: Performed By: #### C BC #### [facility] [address] [place] [address] SUE Flores MD Nucleated RBC/100 WBC (Bld) [Ratio] 0.0 % Normal [facility] Comment on above: Performed By: #### C BC #### [facility] [address] [place] [address] SUE Flores MD Platelet mean volume (Bld) [Entitic vol] 8.4 fL Normal 7.4-10.4 [facility] Comment on above: Performed By: #### C BC #### [facility] [address] [place], [place] [id number] SUE Flores MD PLT 221 10 3/uL Normal 130-400 [facility] Comment on above: Performed By: #### C BC #### [facility] [address] [place], [place] [id number] SUE Flores MD RBC 5.31 10 6/uL Normal 4.70-6.10 [facility] Comment on above: Performed By: #### C BC #### [facility] [address] [place], [place] [id number] SUE Flores MD WBC 8.10 10 3/uL Normal 4.70-10.80 [facility] Comment on above: Performed By: #### C BC #### [facility] [address] [place] [address] SUE Flores MD CMPon 06-11-2020 Albumin [Mass/Vol] 4.1 g/dL Normal 3.5-5.0 [facility] Comment on above: Performed By: #### C MP #### [facility] [address] [place] [address] SUE Flores MD ALP [Catalytic activity/Vol] 72 U/L Normal 38-126 [facility] Comment on above: Performed By: #### C MP #### [facility] [address] [place] [address] SUE Flores MD ALT [Catalytic activity/Vol] 17 U/L Low 21-72 [facility] Comment on above: Performed By: #### C MP #### [facility] [address] [place] [address] SUE Flores MD AST [Catalytic activity/Vol] 21 U/L Normal 17-59 [facility] Comment on above: Performed By: #### C MP #### [facility] [address] [place] [address] SUE Flroes MD Bilirubin [Mass/Vol] 0.6 mg/dL Normal 0.2-1.3 [facility] Comment on above: Performed By: #### C MP #### [facility] [address] [place], [place] [id number] SUE Flores MD Calcium [Mass/Vol] 8.9 mg/dL Normal 8.4-10.2 [facility] Comment on above: Performed By: #### C MP #### [facility] [address] [place] [address] SUE Flores MD Chloride [Moles/Vol] 99 mmol/L Normal 98-107 [facility] Comment on above: Performed By: #### C MP #### [facility] [address] [place] [address] SUE Flores MD Creatinine [Mass/Vol] 0.7 mg/dL Normal 0.7-1.3 [facility] Comment on above: Performed By: #### C MP #### [facility] [address] [place] [address] SUE Flores MD ECO2 30 mmol/L Normal 22-30 [facility] Comment on above: Performed By: #### C MP #### [facility] [address] [place] [address] SUE Flores MD EGFR-AF SWEDISH 146 mL/min/1.73m 2 Normal >=60 [facility] Comment on above: Performed By: #### C MP #### [facility] [address] [place] [address] SUE Flores MD EGFR-NON AF SWEDISH 120 mL/min/1.73 m 2 Normal >=60 [facility] Comment on above: Performed By: #### C MP #### [facility] [address] [place] [address] SUE Flores MD Glucose [Mass/Vol] 125 mg/dL High 70-99 [facility] Comment on above: Performed By: #### C MP #### [facility] [address] [place] [address] SUE Flores MD Potassium [Moles/Vol] 3.6 mmol/L Normal 3.5-5.0 [facility] Comment on above: Performed By: #### C MP #### [facility] [address] [place] [address] SUE Flores MD Protein [Mass/Vol] 7.4 g/dL Normal 6.3-8.2 [facility] Comment on above: Performed By: #### C MP #### [facility] [address] [place] [address] SUE Flores MD Sodium [Moles/Vol] 136 mmol/L Low 137-145 [facility] Comment on above: Performed By: #### C MP #### [facility] [address] [place] [address] SUE Flores MD Urea nitrogen [Mass/Vol] 11 mg/dL Normal 9-20 [facility] Comment on above: Performed By: #### C MP #### [facility] [address] [place] [address] SUE Flores MD GLYCOHEMOGLOBINon 06-11-2020 HbA1c (Bld) [Mass fraction] 6.22 % Normal 4.00-6.30 [facility] Comment on above: Performed By: #### % A1c #### [facility] [address] [place] [address] SUE Flores MD LIPID PROFILE - FASTINGon Cholesterol [Mass/Vol] 147 mg/dL Normal <=200 [facility] Comment on above: Performed By: #### L IPID #### [facility] [address] [place] [address] SUE Flores MD Cholesterol in HDL [Mass/Vol] 24 mg/dL Low 40-60 [facility] Comment on above: Performed By: #### L IPID #### [facility] [address] [place] [address] SUE Flores MD Cholesterol in LDL [Mass/Vol] 89 mg/dL Normal 0-130 [facility] Comment on above: Performed By: #### L IPID #### [facility] [address] [place] [address] SUE Flores MD COMMENT Recommended (Desirable) < 130mg/dL Moderate Risk 130-159 mg/dL High Risk: >/= 130 mg/dL Normal [facility] Comment on above: Performed By: #### L IPID #### [facility] [address] [place] [address] SUE Flores MD Triglyceride [Mass/Vol] 167 mg/dL High <=[address] [facility] Comment on above: Performed By: #### L IPID #### [facility] [address], [place] [address] SUE Flores MD URIC ACIDon 06-11-2020 Urate [Mass/Vol] 5.6 mg/dL Normal 3.5-8.5 [facility] Comment on above: Performed By: #### U R #### [facility] [address] [place], [place] [id number] SUE Flores MD Vital Signs Date Time Vital Sign Value Performing Clinician Faci lity 12-21-2024 12:18-0400 Body temperature 97.9 [degF] Girma Correa WATER TECHNICIAN-C Work Phone: [facility] 12-21-2024 12:18-0400 Diastolic blood pressure 76 mm[Hg] Girma Correa WATER TECHNICIAN-C Work Phone: [facility] 12-21-2024 12:18-0400 Heart rate 70 /min Girma Correa WATER TECHNICIAN-C Work Phone: [facility] 12-21-2024 12:18-0400 Respiratory rate 16 /min Girma Correa WATER TECHNICIAN-C Work Phone: [facility] 12-21-2024 12:18-0400 SaO2% (BldA) [Mass fraction] 98 % Girma Correa WATER TECHNICIAN-C Work Phone: [facility] 12-21-2024 12:18-0400 Systolic blood pressure 137 mm[Hg] Girma Correa WATER TECHNICIAN-C Work Phone: [facility] 12-21-2024 08:26-0400 Inhaled oxygen flow rate 2 L/min Girma Correa WATER TECHNICIAN-C Work Phone: [facility] 12-21-2024 03:14-0400 Body mass index (BMI) [Ratio] 45.8 kg/m2 Girma Correa WATER TECHNICIAN-C Work Phone: [facility] 12-21-2024 03:14-0400 Body weight 140.6 kg Girma Correa WATER TECHNICIAN-C Work Phone: [facility] 12-20-2024 21:02-0400 Body height 175.26 cm Girma Correa WATER TECHNICIAN-C Work Phone: [facility] 12-20-2024 19:58-0400 Body temperature 98.2 [degF] Girma Correa WATER TECHNICIAN-C Work Phone: [facility] 12-20-2024 19:58-0400 Diastolic blood pressure 64 mm[Hg] Girma Correa WATER TECHNICIAN-C Work Phone: [facility] 12-20-2024 19:58-0400 Heart rate 72 /min Girma Correa WATER TECHNICIAN-C Work Phone: [facility] 12-20-2024 19:58-0400 Respiratory rate 16 /min Girma Correa WATER TECHNICIAN-C Work Phone: [facility] 12-20-2024 19:58-0400 SaO2% (BldA) [Mass fraction] 97 % Girma Correa WATER TECHNICIAN-C Work Phone: [facility] 12-20-2024 19:58-0400 Systolic blood pressure 137 mm[Hg] Girma Correa WATER TECHNICIAN-C Work Phone: [facility] 12-20-2024 15:51-0400 Body mass index (BMI) [Ratio] 47.1 kg/m2 Girma Correa WATER TECHNICIAN-C Work Phone: [facility] 12-20-2024 15:51-0400 Body weight 144.7 kg Girma Correa WATER TECHNICIAN-C Work Phone: [facility] 12-20-2024 14:00-0400 Inhaled oxygen flow rate 2 L/min Girma Correa WATER TECHNICIAN-C Work Phone: [facility] 12-20-2024 13:05-0400 Body height 175.26 cm Girma Correa WATER TECHNICIAN-C Work Phone: [facility] 12-20-2024 03:00-0400 Diastolic blood pressure 82 mm[Hg] Girma Correa WATER TECHNICIAN-C Work Phone: [facility] 12-20-2024 03:00-0400 Heart rate 61 /min Girma Wellsaj WATER TECHNICIAN-C Work Phone: [facility] 12-20-2024 03:00-0400 Respiratory rate 17 /min Girma Wellsaj WATER TECHNICIAN-C Work Phone: [facility] 12-20-2024 03:00-0400 Systolic blood pressure 126 mm[Hg] Girma Correa WATER TECHNICIAN-C Work Phone: [facility] 12-20-2024 02:36-0400 Body temperature 98.2 [degF] Girma Correa WATER TECHNICIAN-C Work Phone: [facility] 12-19-2024 22:20-0400 Body height 175.26 cm Girma Wellsaj WATER TECHNICIAN-C Work Phone: [facility] 12-19-2024 22:20-0400 Body mass index (BMI) [Ratio] 47.5 kg/m2 Girma Correa WATER TECHNICIAN-C Work Phone: [facility] 12-19-2024 22:20-0400 Body weight 146.1 kg Girma Correa WATER TECHNICIAN-C Work Phone: [facility] 10-04-2024 21:13-0400 Reason For Taking VItal Signs DR ROBERT SCHIMTZ MD [facility] 10-04-2024 19:37-0400 Heart rate 71 /min DR ROBERT Walls [facility] 10-04-2024 19:37-0400 Reason For Taking VItal Signs DR ROBERT SCHMITZ MD [facility] 10-04-2024 19:37-0400 Respiratory rate 18 /min DR ROBERT Walls [facility] 10-04-2024 19:14-0400 Heart rate 66 /min DR ROBERT Walls [address] [place] [address] 10-04-2024 19:14-0400 Blood Pressure Cuff Size DR ROBERT SCHMITZ MD [address] [place] [address] 10-04-2024 19:14-[address] ROBERT SCHMITZ MD [address] [place] [address] 10-04-2024 19:14-[address] ROBERT SCHMITZ MD [address] [place] [address] 10-04-2024 19:14-0400 Body temperature 97.7 [degF] DR ROBERT Walls [address] [place] [address] 10-04-2024 19:14-0400 Diastolic Blood Pressure Non-Invasive 90 mm[Hg] DR ROBERT SCHMITZ MD [address] [place] [address] 10-04-2024 19:14-0400 Reason For Taking VItal Signs DR ROBERT SCHMITZ MD [address] [place] [address] 10-04-2024 19:14-0400 Respiratory rate 16 /min DR ROBERT Walls [address] [place] [address] 10-04-2024 19:14-0400 Systolic Blood Pressure Non-Invasive 138 mm[Hg] DR ROBERT SCHMITZ MD [address] [place] [address] 10-04-2024 16:28-0400 Heart rate 72 /min DR ROBERT Walls [address] [place] [address] 10-04-2024 15:31-0400 Heart rate 72 /min DR ROBERT Walls [address] [place] [address] 10-04-2024 15:31-0400 Blood Pressure Cuff Size DR ROBERT SCHMITZ MD [address] [place] [address] 10-04-2024 15:31-[address] ROBERT SCHMTIZ MD [address] [place] [address] 10-04-2024 15:31-[address] ROBERT SCHMITZ MD [address] [place] [address] 10-04-2024 15:31-0400 Body temperature 97.52 [degF] DR ROBERT Walls [address] [place] [address] 10-04-2024 15:31-0400 Diastolic Blood Pressure Non-Invasive 72 mm[Hg] DR ROBERT SCHMITZ MD [address] [place] [address] 10-04-2024 15:31-0400 Respiratory rate 16 /min DR ROBERT Walls [address] [place] [address] 10-04-2024 15:31-0400 Systolic Blood Pressure Non-Invasive 120 mm[Hg] DR ROBERT SCHMITZ MD [address] [place] [address] 10-04-2024 15:02-0400 Blood Pressure Cuff Size DR ROBERT SCHMITZ MD [address] [place] [address] 10-04-2024 15:02-[address] ROBERT SCHMITZ MD [address] [place] [address] 10-04-2024 15:02-[address] ROBERT SCHMITZ MD [address] [place] [address] 10-04-2024 15:02-0400 Body temperature 97.88 [degF] DR ROBERT Walls [address] [place] [address] 10-04-2024 15:02-0400 Diastolic Blood Pressure Non-Invasive 78 mm[Hg] DR ROBERT SCHMITZ MD [address] [place] [address] 10-04-2024 15:02-0400 Heart rate 73 /min DR ROBERT Walls [address] [place] [address] 10-04-2024 15:02-0400 Systolic Blood Pressure Non-Invasive 116 mm[Hg] DR ROBERT SCHMITZ MD [address] [place] [address] 10-04-2024 11:59-0400 Heart rate 61 /min DR ROBERT Walls [address] [place] [address] 10-04-2024 07:54-0400 Heart rate 66 /min DR ROBERT Walls [facility] 10-04-2024 07:46-0400 Heart rate 64 /min DR ORBERT Walls [facility] 10-03-2024 16:05-0400 Heart rate 74 /min DR ROBERT Walls [facility] 10-02-2024 06:28-0400 Body height 177.[address] ROBERT Walls [facility] 10-02-2024 06:28-0400 Body weight 140.[address] ROBERT Walls [facility] 10-02-2024 06:28-0400 Body weight 44.38 kg/m2 DR ROBERT Walls [facility] 10-02-2024 05:00-0400 Diastolic Blood Pressure Non-Invasive 68 mm[Hg] DELORES DURESKA DO [facility] 10-02-2024 05:00-0400 Heart rate 116 /min DELORES DURESKA DO [facility] 10-02-2024 05:00-0400 Systolic Blood Pressure Non-Invasive 108 mm[Hg] DELORES DURESKA DO [facility] 10-02-2024 04:00-0400 Diastolic Blood Pressure Non-Invasive 70 mm[Hg] DELORES DURESKA DO [facility] 10-02-2024 04:00-0400 Heart rate 125 /min DELORES DURESKA DO [facility] 10-02-2024 04:00-0400 Systolic Blood Pressure Non-Invasive 101 mm[Hg] DELORES DURESKA DO [facility] 10-02-2024 02:31-0400 Body weight 143 kg DELORES VOKA DO [facility] 10-02-2024 02:15-0400 Diastolic Blood Pressure Non-Invasive 90 mm[Hg] DELORES BARROSOESKA DO [facility] 10-02-2024 02:15-0400 Heart rate 120 /min DELORES BARROSOESKA DO [facility] 10-02-2024 02:15-0400 Respiratory rate 18 /min DELORES VOKA DO [facility] 10-02-2024 02:15-0400 Systolic Blood Pressure Non-Invasive 106 mm[Hg] DELORSE VOKA DO [facility] 10-02-2024 00:27-0400 Body temperature 98.06 [degF] DELORES MURO DO [facility] 02-01-2024 16:08-0400 Heart rate 72 /min CINDY HERNANDEZ MD [facility] 02-01-2024 15:25-0400 Heart rate 68 /min CINDY HERNANDEZ MD [facility] 02-01-2024 15:25-0400 Respiratory rate 18 /min CINDY HERNANDEZ MD [facility] 02-01-2024 14:44-0400 Body temperature 98.6 [degF] CINDY HERNANDEZ MD [facility] 02-01-2024 14:44-0400 Diastolic Blood Pressure Non-Invasive 82 mm[Hg] CINDY HERNANDEZ MD [facility] 02-01-2024 14:44-0400 Heart rate 72 /min CINDY HERNANDEZ MD [facility] 02-01-2024 14:44-0400 Respiratory rate 18 /min CINDY HERNANDEZ MD [facility] 02-01-2024 14:44-0400 Systolic Blood Pressure Non-Invasive 119 mm[Hg] CINDY HERNANDEZ MD [facility] 02-01-2024 11:12-0400 Body temperature 98.24 [degF] CINDY HERNANDEZ MD [facility] 02-01-2024 11:12-0400 Diastolic Blood Pressure Non-Invasive 72 mm[Hg] CINDY HERNANDEZ MD [facility] 02-01-2024 11:12-0400 Heart rate 82 /min CINDY HERNANDEZ MD [facility] 02-01-2024 11:12-0400 Reason For Taking VItal Signs CINDY HERNANDEZ MD [facility] 02-01-2024 11:12-0400 Respiratory rate 18 /min CINDY HERNANDEZ MD [facility] 02-01-2024 11:12-0400 Systolic Blood Pressure Non-Invasive 101 mm[Hg] CINDY HERNANDEZ MD [facility] 02-01-2024 09:16-0400 Heart rate 79 /min CINDY HERNANDEZ MD [facility] 02-01-2024 09:04-0400 Blood Pressure Cuff Size CINDY HERNANDEZ MD [facility] 02-01-2024 09:04-0400 Blood Pressure Location CINDY HERNANDEZ MD [facility] 02-01-2024 09:04-0400 Blood Pressure Method CINDY HERNANDEZ MD [facility] 02-01-2024 09:04-0400 Body temperature 98.96 [degF] CINDY HERNANDEZ MD [facility] 02-01-2024 09:04-0400 Diastolic Blood Pressure Non-Invasive 64 mm[Hg] CINDY HERNANDEZ MD [facility] 02-01-2024 09:04-0400 Heart rate 84 /min CINDY HERNANDEZ MD [facility] 02-01-2024 09:04-0400 Reason For Taking VItal Signs CINDY HERNANDEZ MD [facility] 02-01-2024 09:04-0400 Systolic Blood Pressure Non-Invasive 105 mm[Hg] CINDY HERNANDEZ MD [facility] 02-01-2024 07:04-0400 Heart rate 60 /min CINDY HERNANDEZ MD [facility] 02-01-2024 03:35-0400 Heart rate 80 /min CINDY HERNANDEZ MD [facility] 02-01-2024 03:35-0400 Mean blood pressure 73 mm[Hg] CINDY HERNANDEZ MD [facility] 02-01-2024 03:35-0400 Reason For Taking VItal Signs CINDY HERNANDEZ MD [facility] 01-31-2024 23:23-0400 Heart rate 84 /min CINDY HERNANDEZ MD [facility] 01-31-2024 23:23-0400 Mean blood pressure 74 mm[Hg] CINDY HERNANDEZ MD [facility] 01-31-2024 18:38-0400 Mean blood pressure 79 mm[Hg] CINDY HERNANDEZ MD [facility] 01-31-2024 02:56-0400 Body height 175 cm CINDY HERNANDEZ MD [facility] 01-31-2024 02:56-0400 Body weight 149.1 kg CINDY HERNANDEZ MD [facility] 01-31-2024 02:56-0400 Body weight 48.69 kg/m2 CINDY HERNANDEZ MD [facility] 01-31-2024 01:18-[address] SAMY JONES MD [facility] 01-31-2024 01:18-[address] SAMY JONES MD [facility] 01-31-2024 01:18-0400 Diastolic Blood Pressure Non-Invasive 71 mm[Hg] DR SAMY JONES MD [facility] 01-31-2024 01:18-0400 Heart rate 90 /min DR SAMY JONES MD [facility] 01-31-2024 01:18-0400 Mean blood pressure 82 mm[Hg] DR SAMY JONES MD [facility] 01-31-2024 01:18-0400 Reason For Taking VItal Signs DR SAMY JONES MD [facility] 01-31-2024 01:18-0400 Respiratory rate 18 /min DR SAMY JONES MD [facility] 01-31-2024 01:18-0400 Systolic Blood Pressure Non-Invasive 111 mm[Hg] DR SAMY JONES MD [facility] 01-31-2024 01:07-[address] SAMY JONES MD [facility] 01-31-2024 01:07-[address] SAMY JONES MD [facility] 01-31-2024 01:07-0400 Diastolic Blood Pressure Non-Invasive 61 mm[Hg] DR SAMY JONES MD [facility] 01-31-2024 01:07-0400 Heart rate 85 /min DR SAMY JONES MD [facility] 01-31-2024 01:07-0400 Mean blood pressure 71 mm[Hg] DR SAMY JONES MD [facility] 01-31-2024 01:07-0400 Reason For Taking VItal Signs DR SAMY JONES MD [facility] 01-31-2024 01:07-0400 Respiratory rate 12 /min DR SAMY JONES MD [facility] 01-31-2024 01:07-0400 Systolic Blood Pressure Non-Invasive 90 mm[Hg] DR SAMY JONES MD [facility] 01-31-2024 00:58-[address] SAMY JONES MD [facility] 01-31-2024 00:58-[address] SAMY JONES MD [facility] 01-31-2024 00:58-0400 Diastolic Blood Pressure Non-Invasive 64 mm[Hg] DR SAMY JONES MD [facility] 01-31-2024 00:58-0400 Heart rate 89 /min DR SAMY JONES MD [facility] 01-31-2024 00:58-0400 Mean blood pressure 76 mm[Hg] DR SAMY JONES MD [facility] 01-31-2024 00:58-0400 Reason For Taking VItal Signs DR SAMY JONES MD [facility] 01-31-2024 00:58-0400 Respiratory rate 13 /min DR SAMY JONES MD [facility] 01-31-2024 00:58-0400 Systolic Blood Pressure Non-Invasive 97 mm[Hg] DR SAMY JONES MD [facility] 01-30-2024 20:22-0400 SaO2% (BldA) [Mass fraction] 88.8 % DR SAMY JONES MD [facility] 01-30-2024 20:15-0400 Body height 175.[address] SAMY JONES MD [facility] 01-30-2024 20:15-0400 Body temperature 99.32 [degF] DR SAMY JONES MD [facility] 01-30-2024 20:15-0400 Body weight 145.[address] SAMY JONES MD [facility] 01-30-2024 20:15-0400 Heart rate 133 /min DR SAMY JONES MD [facility] 08-09-2023 21:07-0400 Blood Pressure Cuff Size DR OLLIE BROOKE MD [facility] 08-09-2023 21:07-[address] OLLIE BROOKE MD [facility] 08-09-2023 21:07-[address] OLLIE BROOKE MD [facility] 08-09-2023 21:07-0400 Body height 177.[address] OLLIE BROOKE MD [facility] 08-09-2023 21:07-0400 Body temperature 96.98 [degF] DR OLLIE BROOKE MD [facility] 08-09-2023 21:07-0400 Body weight 155.[address] OLLIE BROOKE MD [facility] 08-09-2023 21:07-0400 Diastolic Blood Pressure Non-Invasive 78 mm[Hg] DR OLLIE BROOKE MD [facility] 08-09-2023 21:07-0400 Heart rate 70 /min DR OLLIE BROOKE MD [facility] 08-09-2023 21:07-0400 Reason For Taking VItal Signs DR OLLIE BROOKE MD [facility] 08-09-2023 21:07-0400 Respiratory rate 22 /min DR OLLIE BROOKE MD [facility] 08-09-2023 21:07-0400 Systolic Blood Pressure Non-Invasive 121 mm[Hg] DR OLLIE BROOKE MD [facility] 06-13-2023 01:18-0500 Diastolic Blood Pressure Non-Invasive 78 mm[Hg] DEMI HUSTON MD [facility] 06-13-2023 01:18-0500 Heart rate 80 /min DEMI HUSTON MD [facility] 06-13-2023 01:18-0500 Respiratory rate 18 /min DEMI HUSTON MD [facility] 06-13-2023 01:18-0500 Systolic Blood Pressure Non-Invasive 142 mm[Hg] DEMI HUSTON MD [facility] 06-13-2023 00:35-0500 Heart rate 74 /min DEMI HUSTON MD [facility] 06-13-2023 00:35-0500 Respiratory rate 20 /min DEMI HUSTON MD [facility] 06-13-2023 00:03-0500 Body temperature 97.7 [degF] DEMI HUSTON MD [facility] 06-13-2023 00:03-0500 Diastolic Blood Pressure Non-Invasive 84 mm[Hg] DEMI HUSTON MD [facility] 06-13-2023 00:03-0500 Heart rate 67 /min DEMI HUSTON MD [facility] 06-13-2023 00:03-0500 Respiratory rate 20 /min DEMI HUSTON MD [facility] 06-13-2023 00:03-0500 Systolic Blood Pressure Non-Invasive 153 mm[Hg] DEMI HUSTON MD [facility] 06-09-2023 21:35-0500 Heart rate 60 /min MOY WATTS MD [facility] 06-09-2023 21:35-0500 Reason For Taking VItal Signs MOY WATTS MD [facility] 06-09-2023 21:35-0500 Respiratory rate 18 /min MOY WATTS MD [facility] 06-09-2023 19:40-0500 Blood Pressure Cuff Size MOY WATTS MD [facility] 06-09-2023 19:40-0500 Blood Pressure Location MOY WATTS MD [address] [place] [address] 06-09-2023 19:40-0500 Blood Pressure Method MOY WATTS MD [address] [place] [address] 06-09-2023 19:40-0500 Body temperature 98.24 [degF] MOY WATTS MD [address] [place] [address] 06-09-2023 19:40-0500 Diastolic Blood Pressure Non-Invasive 66 mm[Hg] MOY WATTS MD [address] [place] [address] 06-09-2023 19:40-0500 Heart rate 63 /min MOY WATTS MD [address] [place] [address] 06-09-2023 19:40-0500 Reason For Taking VItal Signs MOY WATTS MD [address] [place] [address] 06-09-2023 19:40-0500 Respiratory rate 18 /min MOY WATTS MD [address] [place] [address] 06-09-2023 19:40-0500 Systolic Blood Pressure Non-Invasive 112 mm[Hg] MOY WATTS MD [address] [place] [address] 06-09-2023 19:29-0500 Heart rate 63 /min MOY WATTS MD [address] [place] [address] 06-09-2023 16:56-0500 Heart rate 66 /min MOY WATTS MD [address] [place] [address] 06-09-2023 16:04-0500 Blood Pressure Cuff Size MOY WATTS MD [address] [place] [address] 06-09-2023 16:04-0500 Blood Pressure Location MOY WATTS MD [address] [place] [address] 06-09-2023 16:04-0500 Blood Pressure Method MOY WATTS MD [address] [place] [address] 06-09-2023 16:04-0500 Body temperature 97.88 [degF] MOY WATTS MD [address] [place] [address] 06-09-2023 16:04-0500 Diastolic Blood Pressure Non-Invasive 78 mm[Hg] MOY WATTS MD [address] [place] [address] 06-09-2023 16:04-0500 Reason For Taking VItal Signs MOY WATTS MD [address] [place] [address] 06-09-2023 16:04-0500 Respiratory rate 18 /min MOY WATTS MD [address] [place] [address] 06-09-2023 16:04-0500 Systolic Blood Pressure Non-Invasive 138 mm[Hg] MOY WATTS MD [address] [place] [address] 06-09-2023 11:17-0500 Blood Pressure Cuff Size MOY WATTS MD [address] [place] [address] 06-09-2023 11:17-0500 Blood Pressure Location MOY WATTS MD [address] [place] [address] 06-09-2023 11:17-0500 Blood Pressure Method MOY WATTS MD [address] [place] [address] 06-09-2023 11:17-0500 Body temperature 97.88 [degF] MOY WATTS MD [address] [place] [address] 06-09-2023 11:17-0500 Diastolic Blood Pressure Non-Invasive 64 mm[Hg] MOY WATTS MD [address] [place] [address] 06-09-2023 11:17-0500 Systolic Blood Pressure Non-Invasive 126 mm[Hg] MOY WATTS MD [address] [place] [address] 06-09-2023 08:54-0500 Heart rate 66 /min MOY WATTS MD [address] [place] [address] 06-08-2023 23:49-0500 Mean blood pressure 77 mm[Hg] MOY WATTS MD [address] [place] [address] 06-08-2023 17:50-0500 Heart rate 65 /min MOY WATTS MD [address] [place] [address] 06-08-2023 14:06-0500 Heart rate 58 /min MOY WATTS MD [address] [place] [address] 06-08-2023 07:05-0500 Mean blood pressure 90 mm[Hg] MOY WATTS MD [address] [place] [address] 06-07-2023 13:36-0500 Body height 176 cm MOY WATTS MD [address] [place] [address] 06-07-2023 13:36-0500 Body weight 152.9 kg MOY WATTS MD [address] [place] [address] 06-07-2023 13:36-0500 Body weight 49.36 kg/m2 MOY WATTS MD [address] [place] [address] 05-05-2023 20:50-0500 Diastolic Blood Pressure Non-Invasive 79 mm[Hg] DEMI HUSTON MD [facility] 05-05-2023 20:50-0500 Heart rate 84 /min DEMI HUSTON MD [facility] 05-05-2023 20:50-0500 Respiratory rate 20 /min DEMI HUSTON MD [facility] 05-05-2023 20:50-0500 Systolic Blood Pressure Non-Invasive 132 mm[Hg] DEMI HUSTON MD [facility] 05-05-2023 17:16-0500 Body height 175.3 cm DEMI HUSTON MD [facility] 05-05-2023 17:16-0500 Body temperature 97.88 [degF] DEMI HUSTON MD [facility] 05-05-2023 17:16-0500 Body weight 144.4 kg DEMI HUSTON MD [facility] 05-05-2023 17:16-0500 Diastolic Blood Pressure Non-Invasive 88 mm[Hg] DEMI HUSTON MD [facility] 05-05-2023 17:16-0500 Heart rate 68 /min DEMI HUSTON MD [facility] 05-05-2023 17:16-0500 Respiratory rate 20 /min DEMI HUSTON MD [facility] 05-05-2023 17:16-0500 Systolic Blood Pressure Non-Invasive 142 mm[Hg] DEMI HUSTON MD [facility] 02-12-2023 07:06-0400 Body height 175.26 cm [facility] 02-12-2023 07:06-0400 Body mass index (BMI) [Ratio] 49.5 kg/m2 [facility] 02-12-2023 07:06-0400 Body temperature 97.8 [degF] [facility] 02-12-2023 07:06-0400 Body weight 152.1 kg [facility] 02-12-2023 07:06-0400 Diastolic blood pressure 101 mm[Hg] [facility] 02-12-2023 07:06-0400 Heart rate 98 /min [facility] 02-12-2023 07:06-0400 Respiratory rate 16 /min [facility] 02-12-2023 07:06-0400 SaO2% (BldA) [Mass fraction] 95 % [facility] 02-12-2023 07:06-0400 Systolic blood pressure 132 mm[Hg] [facility] 12-23-2022 07:51-0400 Diastolic Blood Pressure Non-Invasive 68 1 MOY WATTS MD [address] [place] [address] 12-23-2022 07:51-0400 Heart rate 61 /min MOY WATTS MD [address] [place] [address] 12-23-2022 07:51-0400 Respiratory rate 12 /min MOY WATTS MD [address] 12-23-2022 07:51-0400 Systolic Blood Pressure Non-Invasive 106 1 MOY WATTS MD [address] 12-23-2022 07:39-0400 Diastolic Blood Pressure Non-Invasive 60 1 MOY WATTS MD [address] [place] [address] 12-23-2022 07:39-0400 Heart rate 64 /min MOY WATTS MD [facility] 12-23-2022 07:39-0400 Respiratory rate 20 /min MOY WATTS MD [address] [place] [address] 12-23-2022 07:39-0400 Systolic Blood Pressure Non-Invasive 97 1 MOY WATTS MD [address] [place] [address] 12-23-2022 07:34-0400 Diastolic Blood Pressure Non-Invasive 59 1 MOY WATTS MD [facility] 12-23-2022 07:34-0400 Heart rate 62 /min MOY WATTS MD [address] [place] [address] 12-23-2022 07:34-0400 Respiratory rate 16 /min MOY WATTS MD [address] [place] [address] 12-23-2022 07:34-0400 Systolic Blood Pressure Non-Invasive 74 1 MOY WATTS MD [address] [place] [address] 12-23-2022 07:24-0400 Body temperature 97.34 [degF] MOY WATTS MD [address] [place] [address] 12-23-2022 07:20-0400 Heart rate 73 /min MOY WATTS MD [facility] 12-23-2022 07:20-0400 Respiratory Rate - Anes 22 br/min MOY WATTS MD [facility] 12-23-2022 07:15-0400 Heart rate 91 /min MOY WATTS MD [facility] 12-23-2022 07:15-0400 Respiratory Rate - Anes 18 br/min MOY WATTS MD [address] [place] [address] 12-23-2022 06:37-0400 Body height 175.3 cm MOY WATTS MD [address] [place] [address] 12-23-2022 06:34-0400 Body height 175.3 cm MOY WATTS MD [facility] 12-23-2022 06:34-0400 Body temperature 95.54 [degF] MOY WATTS MD [facility] 12-23-2022 06:34-0400 Body weight 144 kg MOY WATTS MD [facility] 10-27-2022 06:49-0400 Body temperature 97.7 [degF] DR OLLIE BROOKE MD [facility] 10-27-2022 06:49-0400 Diastolic Blood Pressure Non-Invasive [address] OLLIE BROOKE MD [facility] 10-27-2022 06:49-0400 Heart rate 103 /min DR OLLIE BROOKE MD [facility] 10-27-2022 06:49-0400 Respiratory rate 22 /min DR OLLIE BROOKE MD [facility] 10-27-2022 06:49-0400 Systolic Blood Pressure Non-Invasive [address] OLLIE BROOKE MD [facility] 10-27-2022 06:14-0400 Body temperature 98.06 [degF] DR OLLIE BROOKE MD [facility] 10-27-2022 06:14-0400 Diastolic Blood Pressure Non-Invasive [address] OLLIE BROOKE MD [facility] 10-27-2022 06:14-0400 Heart rate 105 /min DR OLLIE BROOKE MD [facility] 10-27-2022 06:14-0400 Respiratory rate 22 /min DR OLLIE BROOKE MD [facility] 10-27-2022 06:14-0400 Systolic Blood Pressure Non-Invasive [address] OLLIE BROOKE MD [facility] 10-27-2022 05:05-0400 Body height 175.[address] OLLIE BROOKE MD [facility] 10-27-2022 05:05-0400 Body temperature 98.06 [degF] DR OLLIE BROOKE MD [facility] 10-27-2022 05:05-0400 Body weight [address] OLLIE BROOKE MD [facility] 10-27-2022 05:05-0400 Diastolic Blood Pressure Non-Invasive [address] OLLIE BROOKE MD [facility] 10-27-2022 05:05-0400 Heart rate 88 /min DR OLLIE BROOKE MD [facility] 10-27-2022 05:05-0400 Respiratory rate 22 /min DR OLLIE BROOKE MD [facility] 10-27-2022 05:05-0400 Systolic Blood Pressure Non-Invasive [address] OLLIE BROOKE MD [facility] 10-25-2022 01:00-0400 Heart rate 99 /min DEMI HUSTON MD [facility] 10-25-2022 01:00-0400 Systolic Blood Pressure Non-Invasive 139 1 DEMI HUSTON MD [facility] 10-25-2022 00:00-0400 Diastolic Blood Pressure Non-Invasive 94 1 DEMI HUSTON MD [facility] 10-25-2022 00:00-0400 Heart rate 102 /min DEMI HUSTON MD [facility] 10-25-2022 00:00-0400 Respiratory rate 18 /min DEMI HUSTON MD [facility] 10-25-2022 00:00-0400 Systolic Blood Pressure Non-Invasive 132 1 DEMI HUSTON MD [facility] 10-24-2022 23:21-0400 Body height 175.3 cm DEMI HUSTON MD [facility] 10-24-2022 23:21-0400 Body temperature 98.24 [degF] DEMI HUSTON MD [facility] 10-24-2022 23:21-0400 Body weight 139 kg DEMI HUSTON MD [facility] 10-24-2022 23:21-0400 Diastolic Blood Pressure Non-Invasive 99 1 DEMI HUSTON MD [facility] 10-24-2022 23:21-0400 Heart rate 105 /min DEMI HUSTON MD [facility] 10-24-2022 23:21-0400 Respiratory rate 19 /min DEMI HUSTON MD [facility] 10-24-2022 23:21-0400 Systolic Blood Pressure Non-Invasive 146 1 DEMI HUSTON MD [facility] 10-23-2022 10:51-0400 Diastolic blood pressure 76 mm[Hg] [facility] 10-23-2022 10:51-0400 Heart rate 73 /min [facility] 10-23-2022 10:51-0400 Respiratory rate 15 /min [facility] 10-23-2022 10:51-0400 SaO2% (BldA) [Mass fraction] 98 % [facility] 10-23-2022 10:51-0400 Systolic blood pressure 148 mm[Hg] [facility] 10-23-2022 05:58-0400 Body height 175.26 cm [facility] 10-23-2022 05:58-0400 Body mass index (BMI) [Ratio] 47.7 kg/m2 [facility] 10-23-2022 05:58-0400 Body temperature 97.6 [degF] [facility] 10-23-2022 05:58-0400 Body weight 146.8 kg [facility] 07-15-2022 21:40-0500 Diastolic Blood Pressure Non-Invasive 85 1 JEREMIE MCCORMACK MD [facility] 07-15-2022 21:40-0500 Heart rate 72 /min JEREMIE MCCORMACK MD [facility] 07-15-2022 21:40-0500 Respiratory rate 18 /min JEREMIE MCCORMACK MD [facility] 07-15-2022 21:40-0500 Systolic Blood Pressure Non-Invasive 148 1 JEREMIE MCCORMACK MD [facility] 07-15-2022 21:10-0500 Reason For Taking VItal Signs JEREMIE MCCORMACK MD [facility] 07-15-2022 20:42-0500 Body temperature 98.06 [degF] JEREMIE MCCORMACK MD [facility] 07-15-2022 20:42-0500 Diastolic Blood Pressure Non-Invasive 95 1 JEREMIE MCCORMACK MD [facility] 07-15-2022 20:42-0500 Heart rate 81 /min JEREMIE MCCORMACK MD [facility] 07-15-2022 20:42-0500 Respiratory rate 18 /min JEREMIE MCCORMACK MD [facility] 07-15-2022 20:42-0500 Systolic Blood Pressure Non-Invasive 149 1 JEREMIE MCCORMACK MD [facility] 07-11-2022 08:21-0500 Body height 175.3 cm MALORIE PEGUREO MD [facility] 07-11-2022 08:21-0500 Body temperature 97.7 [degF] MALORIE PEGUERO MD [facility] 07-11-2022 08:21-0500 Body weight 148.6 kg MALORIE PEGUERO MD [facility] 07-11-2022 08:21-0500 Diastolic Blood Pressure Non-Invasive 80 1 MALORIE PEGUERO MD [facility] 07-11-2022 08:21-0500 Heart rate 88 /min MALORIE PEGUERO MD [facility] 07-11-2022 08:21-0500 Respiratory rate 24 /min MALORIE PEGUERO MD [facility] 07-11-2022 08:21-0500 Systolic Blood Pressure Non-Invasive 150 1 MALORIE PEGUERO MD [facility] Encounters Encounter Date Encounter Type Care Provider Facility Start: 12-23-2024 End: 12-26-2024 Evaluation and management of inpatient GIRMA CORINE GALLEGO-SHAWN Facility:A Start: 12-21-2024 Non-patient / Non-visit Dr. Farzad Camilo MD -[facility] Work Phone: Start: 12-20-2024 End: 12-21-2024 ambulatory Yaz Dee Facility:[facility] Start: 12-20-2024 End: 12-21-2024 Evaluation and management of inpatient Dr. Yaz Dee MD [facility] Work Phone: Start: 12-20-2024 End: 12-21-2024 observation encounter Girma Correa WATER TECHNICIAN-C Work Phone: -[facility] Start: 12-20-2024 ambulatory Austin Estrada Facility:[facility] Start: 12-20-2024 Non-patient / Non-visit Dr. Austin Estrada MD -[facility] Start: 12-19-2024 End: 12-20-2024 Emergency department patient visit Girma Correa WATER TECHNICIAN-C Work Phone: -Emergency Department Work Phone: Start: 12-10-2024 End: 12-13-2024 Evaluation and management of inpatient DELORES MURO DO [facility] Start: 12-04-2024 End: 12-04-2024 Emergency department patient visit JEREMIE MCCORMACK MD [facility] Start: 11-24-2024 End: 11-28-2024 Evaluation and management of inpatient DR SONNY MAX MD [facility] Start: 11-24-2024 End: 11-24-2024 Emergency department patient visit CIRILO CHRISTIANSONBaljinder DO [facility] Start: 11-06-2024 ambulatory Dolly Siddiqui ty:[facility] Start: 11-06-[address] Dolly Marino MD -[facility] Start: 11-04-2024 End: 11-04-2024 ambulatory Girma Correa WATER TECHNICIAN Facility:[facility] Start: 11-04-2024 End: 11-04-[address] Dolly Marino MD -[facility] Start: 11-04-[address] Dolly Marino MD [facility] Start: 10-30-2024 ambulatory Dolly Asyaa OLS Facili ty:[facility] Start: 10-30-[address] Dolly Marino MD [facility] Start: 10-28-2024 ambulatory Dolly Asyaa OLS Facili ty:[facility] Start: 10-28-[address] Dolly Marino MD -[facility] Start: 10-24-2024 ambulatory Dolly Asyaa OLS Facili ty:[facility] Start: 10-24-[address] Dolly Marino MD [facility] Start: 10-16-2024 End: 10-23-2024 Evaluation and management of inpatient NANI QUINTANA DO [facility] Start: 10-16-2024 End: 10-16-2024 Emergency department patient visit JAKE MAXWELL [facility] Start: 10-02-2024 End: 10-04-2024 Evaluation and management of inpatient DR ROBERT SCHMITZ MD [facility] Start: 10-02-2024 End: 10-02-2024 Emergency department patient visit DELORES JINA DO [facility] Start: 09-05-2024 ambulatory GIRMA CORREA REPRODUCTIVE HEALTHCARE ASSISTANT-TOP CLEANER Facility:[facility] Start: 08-29-2024 End: 08-29-2024 Emergency department patient visit GIRMA CORREA REPRODUCTIVE HEALTHCARE ASSISTANT-TOP CLEANER Facility:[facility] Start: 08-27-2024 End: 08-27-2024 ambulatory GIRMA CORREA REPRODUCTIVE HEALTHCARE ASSISTANT-TOP CLEANER [facility] Start: 08-13-2024 End: 08-13-2024 Emergency department patient visit DR WILNER JOE MD Facility:[facility] Start: 05-14-2024 End: 05-14-2024 ambulatory GIRMA CORREA REPRODUCTIVE HEALTHCARE ASSISTANT-TOP CLEANER Facility:[facility] Start: 05-14-2024 End: 05-14-2024 Patient encounter procedure GIRMA CORREA REPRODUCTIVE HEALTHCARE ASSISTANT-TOP CLEANER [facility] Start: 03-25-2024 ambulatory GIRMA CORREA REPRODUCTIVE HEALTHCARE ASSISTANT-TOP CLEANER Facility:[facility] Start: 03-25-2024 End: 03-29-2024 ambulatory GIRMA CORREA REPRODUCTIVE HEALTHCARE ASSISTANT-TOP CLEANER Facility:[facility] Start: 03-25-2024 End: 03-29-2024 Outreach Lab HELEN YANES REPRODUCTIVE HEALTHCARE ASSISTANT-TOP CLEANER [facility] Start: 02-16-2024 End: 02-16-2024 ambulatory GIRMA CORREA REPRODUCTIVE HEALTHCARE ASSISTANT-TOP CLEANER [facility] Start: 02-16-2024 End: 02-16-2024 Patient encounter procedure GIRMA CORREA REPRODUCTIVE HEALTHCARE ASSISTANT-TOP CLEANER [facility] Start: 02-12-2024 End: 02-12-2024 ambulatory GIRMA CORREA REPRODUCTIVE HEALTHCARE ASSISTANT-TOP CLEANER [facility] Start: 02-12-2024 End: 02-12-2024 Patient encounter procedure GIRMA CORREA REPRODUCTIVE HEALTHCARE ASSISTANT-TOP CLEANER [facility] Start: 01-31-2024 End: 02-01-2024 Evaluation and management of inpatient GIRMA CORREA Facility:[facility] Start: 01-30-2024 End: 01-31-2024 Emergency department patient visit DR SAMY JONES MD [facility] Start: 10-11-2023 End: 10-11-2023 ambulatory [facility] Start: 08-22-2023 End: 08-22-2023 ambulatory GIRMA CORREA Facility:[facility] Start: 08-22-2023 End: 08-22-2023 Patient encounter procedure GIRMA CORREA REPRODUCTIVE HEALTHCARE ASSISTANT-TOP CLEANER [facility] Start: 08-09-2023 End: 08-09-2023 Emergency department patient visit DR OLLIE BROOKE MD [facility] Start: 08-08-2023 End: 08-12-2023 ambulatory GIRMA CORREA Facility:[facility] Start: 08-08-2023 End: 08-12-2023 Outreach Lab GIRMA CORREA REPRODUCTIVE HEALTHCARE ASSISTANT-TOP CLEANER [facility] Start: 08-08-2023 End: 08-08-2023 ambulatory GIRMA PRISCILLAAJ Facility:[facility] Start: 06-13-2023 End: 06-13-2023 Emergency department patient visit DEMI HUSTON MD [facility] Start: 06-07-2023 End: 06-09-2023 Evaluation and management of inpatient MOY WATTS MD [facility] Start: 05-05-2023 End: 05-05-2023 Emergency department patient visit DEMI HUSTON MD [facility] Start: 05-03-2023 ambulatory JAD Coombs Facility:[facility] Start: 04-03-2023 End: 04-03-2023 ambulatory GIRMA LORAJ Facility:[facility] Start: 04-03-2023 End: 04-03-2023 Patient encounter procedure JONNY HOFF REPRODUCTIVE HEALTHCARE ASSISTANT-TOP CLEANER [facility] Start: 03-22-2023 End: 03-22-2023 ambulatory GIRMA CORREA Facility:[facility] Start: 03-14-2023 ambulatory GIRMA LORSON Facility :[facility] Start: 02-22-2023 ambulatory GIRMA PRISCILLASON Facility :[facility] Start: 02-12-2023 End: 02-12-2023 Emergency department patient visit [facility] Work Phone: Start: 02-01-2023 End: 02-01-2023 Patient encounter procedure GIRMA CORREA REPRODUCTIVE HEALTHCARE ASSISTANT-TOP CLEANER [facility] Start: 12-23-2022 End: 12-23-2022 Minor Procedure MOY WATTS MD [facility] Start: 11-11-2022 End: 11-11-2022 Patient encounter procedure MOY WATTS MD [facility] Start: 10-27-2022 End: 10-27-2022 Emergency department patient visit DR OLLIE BROOKE MD [facility] Start: 10-24-2022 End: 10-25-2022 Emergency department patient visit DEMI HUSTON MD [facility] Start: 10-23-2022 End: 10-23-2022 Emergency department patient visit [facility] Start: 07-15-2022 End: 07-15-2022 Emergency department patient visit JEREMIE MCCORMACK MD [facility] Start: 07-11-2022 End: 07-11-2022 Emergency department patient visit MALORIE PEGUERO MD [facility] Start: 07-05-2022 End: 07-05-2022 ambulatory [facility] Start: 04-12-2022 End: 04-12-2022 ambulatory [facility] Start: 03-11-2022 ambulatory [facility] Facility: [facility] Start: 01-12-2022 End: 01-12-2022 ambulatory [facility] Start: 08-24-2021 ambulatory [facility] Start: 08-17-2021 End: 08-18-2021 ambulatory [facility] Start: 08-02-2021 ambulatory [facility] Procedures Date Procedure Procedure Detail Performing Clinician Start: 12-21-2024 Estimated creatinine clearance Girma Correa WATER TECHNICIAN-C Work Phone: Start: 12-20-2024 Estimated creatinine clearance Girma Correa WATER TECHNICIAN-C Work Phone: Start: 12-20-2024 Plain x-ray of hand Gracie soniacoral Correa WATER TECHNICIAN-C Work Phone: Start: 12-20-2024 CT angiography of ch est with contrast Girma Correa WATER TECHNICIAN-C Work Phone: Start: 12-19-2024 Plain chest X-ray Aura Correa WATER TECHNICIAN-C Work Phone: Start: 12-19-2024 D-dimer assay, quantitative Girma Correa WATER TECHNICIAN-C Work Phone: Comment on above: D-Dimer ELEVATED (>0 .49): Additional studies and clinicalassessments are indicated to conclude diagnosis of:Deep Vein Thrombosis (DVT) or Pulmonary Embolism (PE)CRITICAL VALUE CALLED TO VVINHYZV12/25/25 0020 Marquez Swain.RESULTS READ BACK BY SAME. Start: 12-19-2024 Estimated creatinine clearance Girma Correa WATER TECHNICIAN-C Work Phone: Start: 10-28-2024 Vitamin D, 25-hydrox y measurement Girma Correa WATER TECHNICIAN-C Work Phone: Comment on above: Vitamin D StatusDefi ciency: <20 ng/mL (50nmol/L)Insufficiency: 20-30 ng/mL (50-75 nmol/L)Sufficiency: 30-100 ng/mL (75-250 nmol/L)Toxicity: >100 ng/mL (>250 nmol/L) Start: 03-25-2024 Claudia BALDERAS REPRODUCTIVE HEALTHCARE ASSISTANT-TOP CLEANER Comment on above: excision of multilob ulated lipomatous mass right forearm Start: 01-31-2024 Echocardiography CHUN CORREA REPRODUCTIVE HEALTHCARE ASSISTANTKeniu Start: 02-12-2023 SARS-CoV-2 & FLU Ant igen (Rapid) Start: 02-12-2023 Viral antigen assay Start: 02-12-2023 Plain chest X-ray Start: 12-23-2022 Cardioversion JAD WATTS MD Start: 11-11-2022 Echocardiography JONNY SKINNERBIN REPRODUCTIVE HEALTHCARE ASSISTANTKeniu Comment on above: 1. Left ventricle: T [...] Activity Detail Author Start: 12-21-2024 Oxygen therapy [facility] Start: 12-21-2024 Patient discharge [facility] Start: 12-21-2024 Inhalation therapy procedure [facility] Start: 12-20-2024 Assessment of risk o f venous thromboembolism [facility] Start: 12-20-2024 Care regimes management [facility] Start: 12-20-2024 Consultation [facility] Start: 12-20-2024 Elevation of affected extremity [facility] Start: 12-20-2024 Insertion of cathete r into peripheral vein [facility] Start: 12-20-2024 Measuring intake and output [facility] Start: 12-20-2024 Notification of physician [facility] Start: 12-20-2024 Providing care accor ding to standard [facility] Start: 12-20-2024 Provision of activity privileges [facility] Start: 12-20-2024 Referral to occupati onal therapist [facility] Start: 12-20-2024 Referral to service [facility] Start: 12-20-2024 End: 12-20-2024 [facility] Start: 12-20-2024 Following clinical p athway protocol [facility] Start: 12-20-2024 Verification routine [facility] Start: 12-20-2024 Admission procedure [facility] Start: 12-20-2024 Hospital admission, emergency, from emergency room, medical nature [facility] Start: 12-20-2024 Elevation of affected extremity [facility] Start: 12-20-2024 [facility] Start: 12-20-2024 [facility] Start: 12-20-2024 Patient referral to dietitian [facility] Start: 12-19-2024 [facility] Start: 10-23-2022 [facility] Patient Education [facility] Work Phone: Patient referral [facility] Work Phone: Troponin T.cardiac [ Mass/volume] in Serum or Plasma by High sensitivity method [facility] Immunizations Immunization Date Immunization Notes Care Provider Fa cility 04-12-2022 influenza virus vaccine, unspecified formulation MOY WATTS MD [facility] Comment on above: Result Comment: 2023: VIS DATE: 01/01/2021 04-12-2022 pneumococcal conjugate vaccine, 13 valent MOY WATTS MD [facility] Comment on above: Result Comment: 2023: VIS DATE: 07/02/2021 09-11-2020 SARS-CoV-2 (COVID-19 ) mRNA-1273 vaccine MOY WATTS MD [facility] 08-14-2020 SARS-CoV-2 (COVID-19 ) mRNA-1274 vaccine MOY WATTS MD [facility] Payers Date Payer Category Payer Self-pay 2024 Medicaid [id number] 2024 Private Health Insurance [id number] 2023 Medicaid [id number] 1971 Unknown [id number] 2.16.8 40.1.277071.3.579.2.1076 1971 Unknown [id number] 2.16. 840.1.243563.3.579.2.297 1971 Unknown [id number] 2.16.8 40.1.880070.3.579.2.627 1971 Unknown [id number] 2.16.8 40.1.732412.3.579.2.627 1971 Unknown [id number] 2.16.8 40.1.704795.3.579.2.627 1971 Unknown [id number] 2.16.8 40.1.455748.3.579.2.627 1971 Unknown [id number] 2.16.8 40.1.958451.3.579.2.627 1971 Unknown [id number] 2.16.8 40.1.604881.3.579.2.627 1971 Unknown [id number] 2.16.8 40.1.193182.3.579.2.627 1971 Unknown [id number] 2.16.8 40.1.064902.3.579.2.627 1971 Unknown [id number] 2.16.8 40.1.754564.3.579.2.627 1971 Unknown [id number] 2.16.8 40.1.632731.3.579.2.627 1971 Unknown [id number] 2.16.8 40.1.505812.3.579.2.627 1971 Unknown [id number] 2.16.8 40.1.042569.3.579.2.627 1971 Unknown [id number] 2.16.8 40.1.802934.3.579.2.627 1971 Unknown [id number] 2.16.8 40.1.498035.3.579.2.7 1971 Unknown [id number] 2.16.8 40.1.073547.3.579.2.651 1971 Unknown [id number] 2.16. 840.1.987751.3.579.2. 1971 Unknown [id number] 2.16. 840.1.581930.3.579.2.627 1971 Unknown [id number] 2.16. 840.1.487812.3.579.2.7 1971 Unknown [id number] 2.16.8 40.1.252821.3.579.2.627 1971 Unknown [id number] 2.16.8 40.1.732300.3.579.2.627 1971 Unknown [id number] 2.16.8 40.1.589173.3.579.2.627 1971 Unknown [id number] 2.16.8 40.1.419177.3.579.2.627 1971 Unknown [id number] 2.16.8 40.1.521104.3.579.2.627 1971 Unknown [id number] 2.16.8 40.1.790124.3.579.2.627 1971 Unknown [id number] 2.16.8 40.1.868698.3.579.2.627 1971 Unknown [id number] 2.16.8 40.1.780799.3.579.2. 1971 Unknown [id number] .16.8 40.1.875486.3.579.2. 1971 Unknown [id number] .16.8 40.1.421549.3.579.2. 1971 Unknown [id number] .16.8 40.1.416144.3.579.2. 1971 Unknown [id number] . 840.1.608435.3.579.2. 1971 Unknown [id number] 2. 840.1.466183.3.579.2. 1971 Unknown [id number] .0.1.243165.3.579.2. 1971 Unknown [id number] 2.16.8 40.1.977385.3.579.2. 1971 Unknown [id number] .16.8 40.1.441710.3.579.2.627 Unknown [id number] Unknown [id number] 2.16.8 40.1.256497.3.579.2.443 Unknown [id number] 2.16.8 40.1.053088.3.579.2.462 Unknown [id number] 2.16.8 40.1.833535.3.579.2.462 Unknown [id number] 2.16.8 40.1.006164.3.579.2.462 Unknown [id number] 2.16.8 40.1.041550.3.579.2.462 Unknown [id number] 2.16.8 40.1.271967.3.579.2.462 Unknown [id number] 2.16.8 40.1.482264.3.579.2.462 Unknown [id number] 2.16.8 40.1.091868.3.579.2.462 Unknown [id number] 2.16.8 40.1.271194.3.579.2.462 Unknown [id number] 2.16.8 40.1.820212.3.579.2.462 Unknown [id number] 2.16.8 40.1.634813.3.579.2.462 Unknown [id number] 2.16.8 40.1.174781.3.579.2.462 Social History Date Type Detail Facility Start: 07-11-2022 End: 12-20-2024 Tobacco smoking status Ex-smoker (finding) [facility] Start: 1970 Sex Assigned At Male A [facility] Start: 10-23-2022 End: 02-12-2023 Tobacco smoking status [facility] Unknown if ever smoked [facility] Tobacco Nicotine Use: sn uff. Type: Oral (Snuff, Chew). [facility] Comment on above: using NicoDerm patch Stopped chewing snuf f October 2022 Tobacco smoking status [facility] Start: 06-07-2023 End: 08-08-2023 Tobacco smoking status Former smokeless tobacco user, quit more than 30 days ago [facility] Start: 07-11-2022 Sex Male (finding) [facility] Medical Equipment Procedure Code Equipment Code Equipment Origin al Text Equipment Identifier Dates See Instructions , 1 bottle of 100 Test once daily, # 1 EA, 11 Refill(s), Pharmacy: [facility], 177.8, cm, 11/28/23 13:54:00 EDT, Height, 151.4, kg, 11/28/23 13:54:00 EDT, Dosing Weight Start: 12-12-2023 See Instructions , qs 1 month supply Test once daily, # 1 EA, 11 Refill(s), Pharmacy: [facility], 177.8, cm, 11/28/23 13:54:00 EDT, Height, 151.4, kg, 11/28/23 13:54:00 EDT, Dosing Weight Start: 12-12-2023 See Instructions , 1 bottle of 100 Test once daily, # 1 EA, 11 Refill(s), Pharmacy: [facility], 177.8, cm, 11/28/23 13:54:00 EDT, Height, 151.4, kg, 11/28/23 13:54:00 EDT, Dosing Weight Start: 12-12-2023 See Instructions , qs 1 month supply Test once daily, # 1 EA, 11 Refill(s), Pharmacy: [facility], 177.8, cm, 11/28/23 13:54:00 EDT, Height, 151.4, kg, 11/28/23 13:54:00 EDT, Dosing Weight Start: 12-12-2023 See Instructions , 1 bottle of 100 Test once daily, # 1 EA, 11 Refill(s), Pharmacy: [facility], 177.8, cm, 11/28/23 13:54:00 EDT, Height, 151.4, kg, 11/28/23 13:54:00 EDT, Dosing Weight Start: 12-12-2023 See Instructions , qs 1 month supply Test once daily, # 1 EA, 11 Refill(s), Pharmacy: [facility], 177.8, cm, 11/28/23 13:54:00 EDT, Height, 151.4, kg, 11/28/23 13:54:00 EDT, Dosing Weight Start: 12-12-2023 See Instructions , 1 bottle of 100 Test once daily, # 1 EA, 11 Refill(s), Pharmacy: [facility], 177.8, cm, 11/28/23 13:54:00 EDT, Height, 151.4, kg, 11/28/23 13:54:00 EDT, Dosing Weight Start: 12-12-2023 See Instructions , qs 1 month supply Test once daily, # 1 EA, 11 Refill(s), Pharmacy: [facility], 177.8, cm, 11/28/23 13:54:00 EDT, Height, 151.4, kg, 11/28/23 13:54:00 EDT, Dosing Weight Start: 12-12-2023 See Instructions , 1 bottle of 100 Test once daily, # 1 EA, 11 Refill(s), Pharmacy: [facility], 177.8, cm, 11/28/23 13:54:00 EDT, Height, 151.4, kg, 11/28/23 13:54:00 EDT, Dosing Weight Start: 12-12-2023 See Instructions , qs 1 month supply Test once daily, # 1 EA, 11 Refill(s), Pharmacy: [facility], 177.8, cm, 11/28/23 13:54:00 EDT, Height, 151.4, kg, 11/28/23 13:54:00 EDT, Dosing Weight Start: 12-12-2023 See Instructions , 1 bottle of 100 Test once daily, # 1 EA, 11 Refill(s), Pharmacy: [facility], 177.8, cm, 11/28/23 13:54:00 EDT, Height, 151.4, kg, 11/28/23 13:54:00 EDT, Dosing Weight Start: 12-12-2023 See Instructions , qs 1 month supply Test once daily, # 1 EA, 11 Refill(s), Pharmacy: [facility], 177.8, cm, 11/28/23 13:54:00 EDT, Height, 151.4, kg, 11/28/23 13:54:00 EDT, Dosing Weight Start: 12-12-2023 Extremity Ski Binding Fitter And Repairer al Fixator Application L Unknown 10/17/24 Unknown Unknown FDA Start: 10-17-2024 Extremity Ski Binding Fitter And Repairer al Fixator Application L Unknown 10/17/24 Unknown Unknown FDA Start: 10-17-2024 Extremity Ski Binding Fitter And Repairer al Fixator Application L Unknown 10/17/24 Unknown Unknown FDA Start: 10-17-2024 Extremity Ski Binding Fitter And Repairer al Fixator Application L Unknown 10/17/24 Unknown Unknown FDA Start: 10-17-2024 Extremity Ski Binding Fitter And Repairer al Fixator Application L Unknown 10/17/24 Unknown Unknown FDA Start: 10-17-2024 Extremity Ski Binding Fitter And Repairer al Fixator Application L Unknown 10/17/24 Unknown Unknown FDA Start: 10-17-2024 Extremity Ski Binding Fitter And Repairer al Fixator Application L Unknown 10/17/24 Unknown Unknown FDA Start: 10-17-2024 Extremity Ski Binding Fitter And Repairer al Fixator Application L Unknown 10/17/24 Unknown Unknown FDA Start: 10-17-2024 Extremity Ski Binding Fitter And Repairer al Fixator Application L Unknown 10/17/24 Unknown Unknown FDA Start: 10-17-2024 Extremity Ski Binding Fitter And Repairer al Fixator Application L Unknown 10/17/24 Unknown Unknown FDA Start: 10-17-2024 Extremity Ski Binding Fitter And Repairer al Fixator Application L Unknown 10/17/24 Unknown Unknown FDA Start: 10-17-2024 Extremity Ski Binding Fitter And Repairer al Fixator Application L Unknown 10/17/24 Unknown Unknown FDA Start: 10-17-2024 Extremity Ski Binding Fitter And Repairer al Fixator Application L Unknown 10/17/24 Unknown Unknown FDA Start: 10-17-2024 Extremity Ski Binding Fitter And Repairer al Fixator Application L Unknown 10/17/24 Unknown Unknown FDA Start: 10-17-2024 Extremity Ski Binding Fitter And Repairer al Fixator Application L Unknown 10/17/24 Unknown Unknown FDA Start: 10-17-2024 Extremity Ski Binding Fitter And Repairer al Fixator Application L Unknown 10/17/24 Unknown Unknown FDA Start: 10-17-2024 Extremity Ski Binding Fitter And Repairer al Fixator Application L Unknown 10/17/24 Unknown Unknown FDA Start: 10-17-2024 Extremity Ski Binding Fitter And Repairer al Fixator Application L Unknown 10/17/24 Unknown Unknown FDA Start: 10-17-2024 Extremity Ski Binding Fitter And Repairer al Fixator Application L Unknown 10/17/24 Unknown Unknown FDA Start: 10-17-2024 Extremity Ski Binding Fitter And Repairer al Fixator Application L Unknown 10/17/24 Unknown Unknown FDA Start: 10-17-2024 Extremity Ski Binding Fitter And Repairer al Fixator Application L Unknown 10/17/24 Unknown Unknown FDA Start: 10-17-2024 Extremity Ski Binding Fitter And Repairer al Fixator Application L Unknown 10/17/24 Unknown Unknown FDA Start: 10-17-2024 Extremity Ski Binding Fitter And Repairer al Fixator Application L Unknown 10/17/24 Unknown Unknown FDA Start: 10-17-2024 Extremity Ski Binding Fitter And Repairer al Fixator Application L Unknown 10/17/24 Unknown Unknown FDA Start: 10-17-2024 Extremity Ski Binding Fitter And Repairer al Fixator Application L Unknown 10/17/24 Unknown Unknown FDA Start: 10-17-2024 Extremity Ski Binding Fitter And Repairer al Fixator Application L Unknown 10/17/24 Unknown Unknown FDA Start: 10-17-2024 Extremity Ski Binding Fitter And Repairer al Fixator Application L Unknown 10/17/24 Unknown Unknown FDA Start: 10-17-2024 Extremity Ski Binding Fitter And Repairer al Fixator Application L Unknown 10/17/24 Unknown Unknown FDA Start: 10-17-2024 Extremity Ski Binding Fitter And Repairer al Fixator Application L Unknown 10/17/24 Unknown Unknown FDA Start: 10-17-2024 Extremity Ski Binding Fitter And Repairer al Fixator Application L Unknown 10/17/24 Unknown Unknown FDA Start: 10-17-2024 Extremity Ski Binding Fitter And Repairer al Fixator Application L Unknown 10/17/24 Unknown Unknown FDA Start: 10-17-2024 Extremity Ski Binding Fitter And Repairer al Fixator Application L Unknown 10/17/24 Unknown Unknown FDA Start: 10-17-2024 Extremity Ski Binding Fitter And Repairer al Fixator Application L Unknown 10/17/24 Unknown Unknown FDA Start: 10-17-2024 Extremity Ski Binding Fitter And Repairer al Fixator Application L Unknown 10/17/24 Unknown Unknown FDA Start: 10-17-2024 Extremity Ski Binding Fitter And Repairer al Fixator Application L Unknown 10/17/24 Unknown Unknown FDA Start: 10-17-2024 Extremity Ski Binding Fitter And Repairer al Fixator Application L Unknown 10/17/24 Unknown Unknown FDA Start: 10-17-2024 Functional Status Date Assessment Result Facility 12-21-2024 Functional status Activity Abili ty Unable to Assess [facility] Work Phone: 10-04-2024 Functional Status Room located n ear nursing station, Door open, Bathroom light on, Non-Slip footwear, Room check performed [facility] 10-04-2024 Functional Status [facility] 10-04-2024 Functional Status [facility] 10-04-2024 Functional Status Breakfast Percent 80 [facility] 10-04-2024 Functional Status [facility] 10-03-2024 Functional Status Done [facility] 10-03-2024 Functional Status Sequential Com pression Device bilateral knee high removed/off [facility] 10-02-2024 Functional Status ID band on, Call device within reach, Bed in low position [facility] 02-01-2024 Functional Status Room check performed [facility] 02-01-2024 Functional Status [facility] 02-01-2024 Functional Status [facility] 02-01-2024 Functional Status Maintained [facility] 01-31-2024 Functional Status [facility] 01-31-2024 Functional Status 7pm-7am [facility] 01-31-2024 Functional Status Living Situati on Lives with family [facility] 01-31-2024 Functional Status Skin Care Prev entative Intervention(s) heel(s)s elevated, padded oxygen tubing, turn and position system [facility] 01-31-2024 Functional Status [facility] 01-31-2024 [facility] 01-30-[facility]24 Functional Status Standard Safet y ID band on, Call device within reach, Bed in low position, Wheels locked, Upper/Half-Length side-rails up, personal items within reach, Bedside Cart Locked, Visitor at bedside [facility] 08-09-2023 Functional Status Awake, Resting [facility] 06-13-2023 Functional Status ID band on, Call device within reach [facility] 06-09-2023 Functional Status Room check performed [facility] 06-09-2023 [facility] Status [facility] 06-09-2023 Functional Status [facility] 06-08-2023 Functional Status Home independe ntly, Lives with significant other [facility] 06-08-2023 Functional Status Skin Care Prev entative Intervention(s) padded oxygen tubing [facility] 06-08-2023 Functional Status bilateral knee high removed/off [facility] 06-07-2023 Functional Status Sensory Deficits None A [facility] 05-05-2023 Functional Status Assistive Device None A [facility] 05-05-2023 Functional Status Standard Safet y ID band on, Call device within reach, Bed in low position, Wheels locked, Visitor at bedside [facility] 12-23-2022 Functional Status Ambulating in room, Awake [facility] 12-23-2022 [facility] Functional Status Room check performed [facility] 10-27-2022 [facility] 10-25-2022 Functional Status Independent [facility] 10-24-2022 Functional Status Standard Safet y ID band on, Call device within reach, Bed in low position, Wheels locked, Upper/Half-Length side-rails up, personal items within reach, Visitor at bedside [facility] 07-15-2022 Functional Status Room check performed [facility] 07-11-2022 Functional Status Up ad traci [facility] Mental Status Date Assessment Result Facility 12-20-2024 Cognitive function Appropriate;Cooperativ e [facility] Work Phone: 12-19-2024 Cognitive function Voice/Name [facility] Work Phone: 10-04-2024 Mental Status Oriented x 4 [facility] 10-04-2024 Mental Status [facility] 10-04-2024 Mental Status [facility] 10-02-2024 Mental Status Orientation Oriented x 4 [facility] 02-01-2024 Mental Status Orientation Oriented x 4 [facility] 02-01-2024 Mental Status [facility] 01-31-2024 Mental Status [facility] 01-31-2024 Mental Status [facility] 01-30-2024 Mental Status Orientation Oriented x 4 [facility] 08-09-2023 Mental Status Oriented x 4 [facility] 06-13-2023 Mental Status Orientation Oriented x 4 [facility] 06-09-2023 Mental Status Oriented x 4 [facility] 06-09-2023 Mental Status [facility] 06-09-2023 Mental Status [facility] 06-08-2023 Mental Status [facility] 05-05-2023 Mental Status Orientation Oriented x 4 [facility] 05-05-2023 Mental Status [facility] 12-23-2022 Mental Status Oriented x 4 [facility] 10-27-2022 Mental Status Orientation Oriented x 4 [facility] 10-27-2022 Mental Status [facility] 10-25-2022 Mental Status Orientation Oriented x 4 [facility] 10-24-2022 Mental Status [facility] 10-23-2022 Cognitive function Voice/Name Taye Guo [facility] Work Phone: 07-15-2022 Mental Status Oriented x 4 [facility] 07-11-2022 Mental Status Oriented x 4 [facility] Clinical Notes 02-07-2022 to 12-26-2024 Note Date & Type Note Facility 12-26-2024 Hospital Discharge instructions Patient Education 12/26/2024 15:53:13 Radiology- PICC Line 03/08/2024(CUSTOM) [facility] PICC Line Discharge Instructions Interventional Radiology [facility] [address] [place] [address] A PICC (peripherally inserted central catheter) is a continuous churn buttermaker IV access device. A catheter is inserted [...] physician to coordinate weekly flushes. Pain Control: [id number] pain medication should be used for pain [...] instruction below: 8:00 am- 5:00 pm call [phone] After 24 hours, contact the physician who ordered this procedure for you. Special Instructions: Follow Up Care 12/23/2024 17:41:25 With:GIRMA CORREA Address: [address] [place] [place] [address]- [phone] When:1-2 days Comments:Please call the office to schedule a hospital follow up appointment. With:MAYRA MARTIN BA, MD, Infectious Disease, Infectious Disease Group Address: [facility] [id number] [place] [address]- [phone] When:Within 3 Week(s) With:NANI QUINTANA DO Orthopedic Address: [address] [place] [place] [address]- [phone] When:Within 1 Week(s) Comments:Please call office SARA to schedule follow up appointment in 1 week for repeat XRs and skin check. [facility] 12-26-2024 Note Discharge Instructions Thank you for allowing [facility] to assist you with your healthcare needs. [...] CORREA When:Within 1-2 days Where:[address] [place] [address]- [phone] Additional Information: Please call the office to schedule a hospital follow up appointment. Follow Up with MAYRA MARTIN BA, MD, Infectious Disease, Infectious Disease Group When:In 3 weeks Where:[facility] [address] [place] [place] [address]- [phone] Follow Up with NANI QUINTANA DO Orthopedic When:In 1 week Where:[address] [facility] [place] [address]- [phone] Additional Information: Please call office SARA to [...] Postoperative pain Duration: 7 Days Pickup at [facility]/pharmacy #[id number] New ceFAZolin (CeFAZolin 2 gm IV Syringe) [...] Information [facility]/pharmacy #[id number]: [address], [place] [id number] [phone] What How Much When Comments Stop Taking [...] medication providers or retail pharmacies. Education Materials [facility] PICC Line Discharge Instructions Interventional Radiology [facility] [address] [place] [address] A PICC (peripherally inserted central catheter) is a retirement IV access device. A catheter is inserted [...] physician to coordinate weekly flushes. Pain Control: [id number]-[id number] pain medication should be used for pain [...] instruction below: 8:00 am- 5:00 pm call [phone] After 24 hours, contact the physician who ordered this procedure for you. Special Instructions: Additional Information VACCINATE! IT SAVES LIVES! Members of the community who have not yet received the COVID-19 vaccine and would like to receive it can visit one of [facility] vaccine clinics. There are many vaccine clinic locations within the [facility]. For locations and available times, please visit [email or web address] It is important to note that some COVID mobile vaccine clinics are held outdoors and may be canceled in rainy or stormy conditions. To learn more about pediatric vaccinations (ages 5-11), we invite you to visit the [facility] webpage. https://www.[employer] Bookss.org/pages /7653-Fooyk-Xnnkxnbfcwp-Frequently-A sked-Questions.html To learn more about the COVID-19 vaccine, we invite you to visit the CDC website for a list of frequently asked questions.https://www.cdc.gov/hess virus/2019-ncov/vaccines/faq.html [facility] Patient Portal Access Instructions: Stay connected with your healthcare team and access your personal medical information anytime with the [facility] Patient Portal. Please follow the directions below to create your [facility] account: 1.Access the email account you provided upon registration to the hospital/physician office.2.Look for an invitation email from [facility].3.Open the email and access the invitation link: Accept Invitation to [facility].4.Fill in the required orr to create your account. To access your account, visit [employer] MobileOne[employer]. Click the blue button labeled "Access Patient [...] you will allow to register on the [facility] for access to your information. You can also access the [facility] Patient Portal on the [facility] frida. Simply click on "Patient Portal" and then log into your account. If you would like to receive a full copy of your medical records, please contact the [facility] Medical Records Department by calling [phone], Monday through Monday between 8 a.m. and [...] Call your local pharmacy or go to [email or web address] [email or web address] to find one close to you.3.Make use of household items: Use cat litter or old coffee grounds to dispose medications if other options are not available. Mix your drugs with these household products, seal them in an airtight container and throw it into the garbage. Call [facility]: [phone] to be sure your drugs can be [...] aware that I should contact my doctor. Patient/Conveyor System Dispatcher Signature: ___ Date/Time: Relationship to Patient: _ Witness Name/Signature: Date/Time: [facility] 12-26-2024 Procedure note VASCULAR ACCESS TEAM POST [...] Deny Amin RN on 12/26/2024 03:21 PM [facility] 12-26-2024 Discharge summary Date of Service 12/26/24 [...] IV antibiotics and faxed to Dr. Marshall [phone]. Allergies Contrast dye Statins myalgia Procedures Date of Service 12/24/2024 Indication/Consent Ray is a 54-year-old male who presented to [facility] with right ankle sprain cellulitis and [...] follow-up appointment. Patient was evaluated while in [facility] ED and surgical intervention was recommended to [...] Surgeon(s) ANA LUISA DONOVAN DO (Primary Surgeon) Communications Specialist(s) Suze Mishra DO PGY 2 Adriano Mack DO PGY1 Adriano Brooke DO PGY1 Type of Anesthesia CHANTAL CARTER DO (National Park Ranger) AUGUSTO BANDA (Provider) Estimated Blood Loss 5 [...] Date: December 23, 2024 Verified By: MICK LEGEGTT MD CLINICAL STATEMENT: IMPRESSION: External fixation hardware [...] needed as needed for low blood sugar. [id number] Milliliter by mouth every 4 hours as [...] Follow Up Follow Up with GIRMA CORREA APRN-TOP CLEANER When:Within 1-2 days Where:[address] [place] [address]- [phone] Additional Information: Please call the office to schedule a hospital follow up appointment. Follow Up with MAYRA MARTIN BA, MD, Infectious Disease, Infectious Disease Group When:In 3 weeks Where:[facility] [address] [place] [address] [phone] Follow Up with NANI QUINTANA DO, Orthopedic When:In 1 week Where:[address] [facility], [place] [address]- [phone] Additional Information: Please call office SARA to [...] PERNELL DEWITT MD on 12/26/2024 03:11 PM [facility] 12-26-2024 Note Discharge Instructions Thank you for allowing [facility] to assist you with your healthcare needs. [...] When:Within 1-2 days Where:[address] [facility] [place] [address]- [phone] Follow Up with MAYRA MARTIN BA, MD, Infectious Disease, Infectious Disease Group When:In 3 weeks Where:[facility] [address] [address]- [phone] Follow Up with NANI QUINTANA DO, Orthopedic When:In 1 week Where:[address] [facility], [place] [address]- [phone] Additional Information: Please call office SARA to [...] Postoperative pain Duration: 7 Days Pickup at [facility]/pharmacy #[id number] New ceFAZolin (CeFAZolin 2 gm IV Syringe) [...] bedtime Pharmacy Information [id number] [address], [place] [phone] What How Much When Comments Stop Taking [...] to receive it can visit one of [facility] vaccine clinics. There are many vaccine clinic locations within the [facility]. For locations and available times, please visit [email or web address] [email or web address] It is important to note that some COVID mobile vaccine clinics are held outdoors and may be canceled in rainy or stormy conditions. To learn more about pediatric vaccinations (ages 5-11), we invite you to visit the [facility] webpage. https://www.[facility].org/pages /3513-Uzljn-Sanoyhwcmjf-Frequently-A sked-Questions.html To learn more about the COVID-19 vaccine, we invite you to visit the CDC website for a list of frequently asked questions.https://www.cdc.gov/hess virus/2019-ncov/vaccines/faq.html [facility] Patient Portal Access Instructions: Stay connected with your healthcare team and access your personal medical information anytime with the [facility] Patient Portal. Please follow the directions below to create your [facility] account: 1.Access the email account you provided upon registration to the hospital/physician office.2.Look for an invitation email from [facility].3.Open the email and access the invitation link: Accept Invitation to [facility].4.Fill in the required orr to create your account. To access your account, visit [email or web address]. Click the blue button labeled "Access Patient [...] you will allow to register on the [facility] Patient Portal for access to your information. You can also access the [facility] Patient Portal on the [facility] frida. Simply click on "Patient Portal" and then log into your account. If you would like to receive a full copy of your medical records, please contact the [facility] Medical Records Department by calling [phone], Monday through Monday between 8 a.m. and [...] Call your local pharmacy or go to http://bit.ly/3K1Pj6u to find one close to you.3.Make use of household items: Use cat litter or old coffee grounds to dispose medications if other options are not available. Mix your drugs with these household products, seal them in an airtight container and throw it into the garbage. Call [facility]: [phone] to be sure your drugs can be [...] aware that I should contact my doctor. Patient/Conveyor System Dispatcher Signature: ___ Date/Time: Relationship to Patient: _ Witness Name/Signature: Date/Time: [facility] 12-26-2024 Note Discharge Instructions Thank you for allowing [facility] to assist you with your healthcare needs. [...] 1-2 days Where:[address] [facility] [place] [address] [phone] Follow Up with MAYRA MARTIN BA, MD, Infectious Disease, Infectious Disease Group When:In 3 weeks Where:[facility] [address] [address]- [phone] Follow Up with NANI QUINTANA DO, Orthopedic When:In 1 week Where:[address] [facility], [place] [address]- [phone] Additional Information: Please call office SARA to [...] Postoperative pain Duration: 7 Days Pickup at [facility]/pharmacy #[id number] New ceFAZolin (CeFAZolin 2 gm IV Syringe) [...] Information [facility]/pharmacy #[id number]: [address], [place] [phone] What How Much When Comments Stop Taking [...] to receive it can visit one of [facility] vaccine clinics. There are many vaccine clinic locations within the [facility]. For locations and available times, please visit [email or web address]://[email or web address] [email or web address] It is important to note that some COVID mobile vaccine clinics are held outdoors and may be canceled in rainy or stormy conditions. To learn more about pediatric vaccinations (ages 5-11), we invite you to visit the [employer] webpage. https://www.Phoenix Bookss.org/pages /7758-Yvwlj-Ntjvcgiwinv-Frequently-A sked-Questions.html To learn more about the COVID-19 vaccine, we invite you to visit the CDC website for a list of frequently asked questions.https://www.cdc.gov/hess virus/2019-ncov/vaccines/faq.html [facility] Patient Portal Access Instructions: Stay connected with your healthcare team and access your personal medical information anytime with the [facility] Patient Portal. Please follow the directions below to create your [facility] account: 1.Access the email account you provided upon registration to the hospital/physician office.2.Look for an invitation email from [facility].3.Open the email and access the invitation link: Accept Invitation to [facility].4.Fill in the required orr to create your account. To access your account, visit [employer] MobileOneChart. Click the blue button labeled "Access Patient [...] you will allow to register on the [facility] Patient Portal for access to your information. You can also access the [facility] Patient Portal on the [facility] frida. Simply click on "Patient Portal" and then log into your account. If you would like to receive a full copy of your medical records, please contact the [facility] Medical Records Department by calling [phone], Monday through Monday between 8 a.m. and [...] Call your local pharmacy or go to [email or web address]/2Z0Sd5w to find one close to you.3.Make use of household items: Use cat litter or old coffee grounds to dispose medications if other options are not available. Mix your drugs with these household products, seal them in an airtight container and throw it into the garbage. Call [facility]: [phone] to be sure your drugs can be [...] aware that I should contact my doctor. Patient/Conveyor System Dispatcher Signature: ___ Date/Time: Relationship to Patient: _ Witness Name/Signature: Date/Time: [facility] 12-26-[address] Dewitt called [...] by SHAHEEN Allen on 12/26/2024 11:54 AM [facility] 12-26-[address] Dewitt called [...] by SHAHEEN Allen on 12/26/2024 11:54 AM [facility] 12-25-2024 Note Date of Service 12/25/24 Subjective [...] fax results to attention Dr. Martin at [phone]. Objective Vitals and Measurements T: 36.7 C [...] surgical intervention. Plan for PICC line and retirement IV antibiotics per ID. He will remain [...] PERNELL DEWITT MD on 12/25/2024 04:09 PM [facility] 12-25-2024 Infectious disease Progress note Date of [...] fax results to attention Dr. Martin at [phone]. Please make outpatient follow-up with Dr. Martin [...] by ORI TOMLIN on 12/25/2024 02:20 PM [facility] 12-25-2024 Note . MICRO - Microbiology PROCEDURE: [...] Locations *1: This test was performed at: [address], [address] [place] [address] 12-25-2024 Note . MICRO - Microbiology PROCEDURE: [...] Locations *1: This test was performed at: [address], [address] [place] [address] 12-25-2024 Orthopaedic surgery Progress note Date of [...] obturator, femoral, LCN, DPN, SPN, sural, saphenous, M/HOP STRAINER - Calf soft and non-tender Weight Dosing [...] Digitally Signed by ANA LUISA DONOVAN DO [facility] 12-24-2024 Anesthesiology Consult note Patient: CARLOS ALBERTO [...] CHANTAL WHEATLEY DO on 12/24/2024 06:46 PM [facility] 12-24-2024 Note Exam Date Time Procedure Performing Provider Status 12/24/24 5:26 PM XR Fluoro 1-2 Hrs Tech Time Corin MOLINA MD; Auth (Verified) [id number] ORIGINAL EXAMINATION: SPOT FLUOROSCOPIC IMAGES 12/24/2024 5:26 [...] 3:52:11 AM Ordering Provider: ANA LUISA DONOVAN [facility] CenterGrldbsik94-20-1370 Orthopaedic surgery Consult note Date of Service 12/23/24 Reason for Consultation Right ankle surgical site infection Referring Physician Emergency department History of Present Illness Patient is a 54-year-old male presented to [facility] due to purulence coming from his external fixator. Of note, on 10-17-2024 he was treated with close reduction and external fixation with ankle spanning external fixator by Dr. Quintana at [facility]. Patient reports he did attend his 2-week [...] FARZAD GIL DO on 12/23/2024 07:38 PM [facility] CenterJftjievs44-22-6130 Anesthesiology Consult note Patient: CARLOS ALBERTO KELLEY [...] list: Medical Asthma exacerbation / SNOMED CT 6737083800 / Confirmed COPD exacerbation / SNOMED CT 5129965124 / Confirmed Atopic dermatitis / SNOMED CT 60552302 / Confirmed Atypical chest pain / SNOMED CT 996228583 / Confirmed Bacteremia / SNOMED CT 07559134 / Confirmed Morbid obesity with BMI of 40.0-44.9, adult / SNOMED CT 6665350518 / Confirmed Bronchitis / SNOMED CT 24567981 / Confirmed Cardiomyopathy / SNOMED CT 417329064 / Confirmed CHF with cardiomyopathy / SNOMED CT 18657463 / Confirmed Cough / SNOMED CT 55000558 / Confirmed Dental abscess / SNOMED CT 079417673 / Confirmed Depression / SNOMED CT 33256814 / Confirmed Dyspnea / SNOMED CT 601002417 / Confirmed Generalized anxiety disorder / SNOMED CT 90723730 / Confirmed Hypertension associated with type 2 diabetes mellitus / SNOMED CT 2971550534 / Confirmed Insomnia / SNOMED CT 437935850 / Confirmed LVH (left ventricular hypertrophy) / SNOMED CT 09900288 / Confirmed Moderate asthma / SNOMED CT 4917562499 / Confirmed Near syncope / SNOMED CT 7860615722 / Confirmed Chewing tobacco nicotine dependence / SNOMED CT 26600822 / Confirmed KOFFI (obstructive sleep apnea) / SNOMED CT 988767818 / Confirmed Right knee pain / SNOMED CT 5125043502 / Confirmed Paroxysmal atrial fibrillation / SNOMED CT 477305280 / Confirmed Screening for ischemic heart disease / SNOMED CT 356071230 / Confirmed Screening for colon cancer / SNOMED CT 592381400 / Confirmed Statin intolerance / SNOMED CT 4468677358 / Confirmed Tachyarrhythmia / SNOMED CT 16299676 / Confirmed Type 2 diabetes mellitus with hemoglobin A1c goal of less than 7.0% / SNOMED CT 601374724 / Confirmed Type 2 diabetes mellitus with hyperlipidemia / SNOMED CT 939800458 / Confirmed Resolved: Anxiety / SNOMED CT 50967077 Resolved: BMI 45.0-49.9, adult / SNOMED CT 7427142354 Resolved: Diabetes mellitus / SNOMED CT 150205768 Resolved: Hyperlipidemia / SNOMED CT 78551075 Resolved: Hypertension / SNOMED CT 2834802325 Resolved: Mass of arm / SNOMED CT 407257898 Resolved: Morbid obesity / SNOMED CT 897882384 Resolved: Obstructive sleep apnea / SNOMED CT 986595142 Resolved: Prediabetes / SNOMED CT 3732456831 Resolved: Right flank pain / SNOMED CT 983557966 Canceled: (HFpEF) heart failure with preserved ejection fraction / SNOMED CT 5964683332 Canceled: Right otitis media / SNOMED CT 273127968911161 Canceled: Persistent atrial fibrillation / SNOMED CT 2728173660 Canceled: Wheezing / SNOMED CT 02456787, Active Problems (33) Asthma exacerbation Atopic dermatitis [...] Histories Past Medical History: Resolved Morbid obesity (080599272): Resolved. Diabetes mellitus (213918477): Resolved. Hypertension (3789719235): Resolved. BMI 45.0-49.9, adult (0796237396): Resolved. Anxiety (94083618): Resolved. Prediabetes (7190593656): Resolved. Obstructive sleep apnea (455400130): Resolved. Right flank pain (895619066): Resolved. Hyperlipidemia (95277101): Resolved. Mass of arm (241986366): Resolved. Family History: Cancer Father Heart disease Mother Grandparent Stroke Father Procedure history: Excision (972859740) on 03/25/2024 at 53 Years. 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 Cardioversion (433927597) on 12/23/2022 at 52 Years. Echocardiogram (8632567186) on 11/11/2022 at 52 Years. Comments: 03/20/2023 [...] atrial pressure is 15 mm Hg Elbow (6393687194). Comments: 07/11/2022 8:26 EST - Bharath, SHAHEEN [...] Oral37.0 DegC (DEC 24 14:59) Heart Rate Tcpavs99 bpm (DEC 24 08:10) CVD244 mmHg (DEC 24 14:59) DBP70 mmHg (DEC [...] Documentation reviewed: Current records. Assessment and Plan [place] [employer] Anesthesiologists (ASA) physical status classification: [...] CHANTAL WHEATLEY DO on 12/24/2024 04:37 PM [facility] Center[facility]kpgwixj96-52-0187 Note Date of Service 12/24/24 Subjective 54 [...] PERNELL DEWITT MD on 12/24/2024 03:54 PM [facility] CenterXqxahzkb23-55-7398 Infectious disease Consult note Date of Service 12/24/2024 Reason for Consultation Right ankle hardware infection Referring Physician Dr. Max History of Present Illness Patient is a 54-year-old male with past medical history of COPD, tobacco abuse, atrial fibrillation, type 2 diabetes, recent right ankle fracture requiring external fixation presents as a transfer from [place] on 12/23/2024 with worsening swelling, redness and [...] make his appointment as he was at [facility]. He states that he did not finish [...] by ORI TOMLIN on 12/24/2024 03:13 PM [facility] CenterRztmkwce36-26-3035 Infectious disease Consult note Date of Service 12/24/2024 Reason for Consultation Right ankle hardware infection Referring Physician Dr. Max History of Present Illness Patient is a 54-year-old male with past medical history of COPD, tobacco abuse, atrial fibrillation, type 2 diabetes, recent right ankle fracture requiring external fixation presents as a transfer from [place] on 12/23/2024 with worsening swelling, redness and [...] make his appointment as he was at [facility]. He states that he did not finish [...] by ORI TOMLIN on 12/24/2024 03:13 PM [facility] CenterYwrfbmtz17-26-7457 Note Date of Service Patient medically optimized [...] PERNELL DEWITT MD on 12/24/2024 07:21 AM [facility] CenterIztagikr28-38-2719 Note. MICRO - Microbiology PROCEDURE: Blood Culture [...] Locations *1: This test was performed at: [facility], [address] [place] [address], [address]- , [facility]07-29-2025 Note. MICRO - Microbiology PROCEDURE: Blood Culture [...] Locations *1: This test was performed at: [facility], [address] [place] [address], [address]- , [facility] [id number] History and physical note [facility] Hospitalist History and Physical Date [...] Vitals Signs(Last 24 hrs)__Last Charted Minimum Maximum GAF736(DEC 23 17:42)132(DEC 23 17:42)132(DEC 23 17:42) DBP83(DEC [...] SONNY MAX MD on 12/23/2024 09:52 PM [facility] CenterAvvedxlz23-51-5861 Note* Exam Date Time Procedure Performing Provider Status 12/23/24 9:45 PM XR Ankle Minimum 3 Views Right MICK LEGGETT MD; Auth (Verified) [id number] ORIGINAL EXAMINATION: THREE XRAY VIEWS OF THE [...] Sign Date: 12/23/2024 10:04:30 PM Ordering Provider: [facility]07-28-2025 Note* Exam Date Time Procedure Performing Provider Status 12/23/24 9:44 PM XR Ankle Minimum 3 Views Left TRACE FIERRO MD; Auth (Verified) [id number] ORIGINAL EXAMINATION: THREE XRAY VIEWS OF THE [...] Sign Date: 12/23/2024 9:57:26 PM [facility] Note. MICRO - Microbiology PROCEDURE: Blood Culture [...] Locations *1: This test was performed at: [facility], [address] [place] [address], [facility] , [facility]07-28-2025 Note. MICRO - Microbiology PROCEDURE: Blood Culture [...] Locations *1: This test was performed at: [facility], [address] [place] [address], [address] , [facility] [id number] Orthopaedic surgery Consult note Date of Service 12/23/24 Reason for Consultation Right ankle surgical site infection Referring Physician Emergency department History of Present Illness Patient is a 54-year-old male presented to [facility] due to purulence coming from his external fixator. Of note, on 10-17-2024 he was treated with close reduction and external fixation with ankle spanning external fixator by Dr. Quintana at [facility]. Patient reports he did attend his 2-week [...] FARZAD GIL DO on 12/23/2024 07:38 PM [facility] CenterJtcdvmwx81-16-3232 Evaluation + Plan noteExtracted from: Title:Clinical Document Author:SONNY MAX MD Date:12/23/24 [facility] Medicine Hospitalist History and Physical Date of [...] Vitals Signs(Last 24 hrs)__Last Charted Minimum Maximum MRM227(DEC 23 17:42)132(DEC 23 17:42)132(DEC 23 17:42) DBP83(DEC [...] Metabolic Panel 08/27/24 * N-Terminal proBNP 08/27/24 [facility] 07-26-2025 Discharge summary [facility] Medical Records Department [address] [place] [address] Transfer to [facility] Care MR#: [id number] Acct: [id number] Name: CARLOS ALBERTO KELLEY Jr. Rep #:[id number] : 1970 54 From: Farzad mejia MD PCP: Dr. Jhonatan Garcia, DO Status:ADM BRENNA Certification of patient admission REQUIRED AT TIME OF ADMISSION. I CERTIFY THAT POST-HOSPITAL ECF SERVICES ARE REQUIRED TO BE GIVEN ON AN IN-PATIENT BASIS BECAUSE OF THE ABOVE NAMED PATIENT'S NEED FOR HALF-WAY CARE ON A CONTINUING BASIS FOR THE CONDITION(S) FOR WHICH HE/SHE WAS RECEIVING IN-PATIENT HOSPITAL SERVICES PRIOR TO HIS/HER TRANSFER TO THE [facility]. 12/21/24 0845 Diet Diet Order/Speech Therapy: INPATIENT [...] tissue disorders Allergies/Procedures Done in Hospital Allergies Xphdwjx-DQG-GfE Reductase Inhibitor Allergy (Mild, Verified 12/20/24 13:07) [...] in before D/C Order can be placed): Long Term Facility 12/21/24 0845 Cosigner Signature (if applicable): CC: Dr. Yaz Dee MD; Dr. Austin Estrada MD; Dr. Jhonatan Garcia DO ~ [facility]07-26-2025 Discharge summary [facility] Medical Records Department [address] [place] [address] Discharge Summary 12/21/24 1134 MR#: [id number] Acct: [id number] Name: CARLOS ALBERTO KELLEY Jr. Rep #:[id number] : 1970 54 From: Farzad mejia MD PCP: Dr. Jhonatan Garcia DO Status:ADM BRENNA [facility] Prov[facility] Date of Admission: 12/20/24 Primary Care [...] Course: Per HPI: CARLOS ALBERTO KELLEY, is p60-hkdp-dhf male history of hypertension, gout, cardiomyopathy, GERD, diabetes, depression and anxiety, KOFFI who presented [facility] ED 12/20/2024 for right hand pain, swelling, [...] 76.3 H, Lymph % (Auto) 10.6 L, Dorado % (Auto) 10.6 H, Eos % (Auto) [...] (Auto) 68.8, Lymph % (Auto) 15.1 L, Dorado % (Auto) 13.4 H, Eos % (Auto) [...] swelling. No significant bony abnormality Reading Location: [id number] D/C Instructions DC O2, CPAP, BIPAP Needs [...] in before D/C Order can be placed): Long Term Facility Charges/Coding Visit Charges Inpatient E&M: 39121 Disch Hosp >30min 12/21/24 1138 Cosigner Signature (if applicable): CC: Dr. Farzad Camilo MD; Dr. Jhonatan Garcia DO~ Signed [facility]07-26-2025 [facility] Medical Records Department [address] [place] [address] Discharge Summary 12/21/24 1134 MR#: [id number] Acct: [id number] Name: WARRENCARLOS ALBERTO Jr. Rep #: [id number] : 1970 54 From: Farzad Camilo MD PCP: Dr. Jhonatan Garcia DO Status:ADM BRENNA Location: [place] [address] Providers Date of Admission: 12/20/24 Primary Care [...] Course: Per HPI: CARLOS ALBERTO KELLEY, is x63-kuko-jgz male history of hypertension, gout, cardiomyopathy, GERD, diabetes, depression and anxiety, KOFFI who presented [facility] ED 12/20/2024 for right hand pain, swelling, [...] his care. His home (more content not included)...[facility]07-26-2025 Progress note Author Austin Estrada [facility] Note Date/Time December 21, 2024 8:23 am [facility] Medical Records Department [address] [place] [address] Progress Note - Surgery 12/21/24 0807 MR#: [id number] Acct: [id number] Name: CARLOS ALBERTO KELLEY Jr. Rep #:[id number] : 1970 54 From: Austin Estrada MD PCP: Dr. Jhonatan Garcia, DO Status:ADM BRENNA Location: [place]3 IO420-6 Subjective Subjective Much improvement in right hand [...] 76.3 H, Lymph % (Auto) 10.6 L, Dorado % (Auto) 10.6 H, Eos % (Auto) [...] (Auto) 68.8, Lymph % (Auto) 15.1 L, Dorado % (Auto) 13.4 H, Eos % (Auto) [...] swelling. No significant bony abnormality Reading Location: [facility] Physical Exam Narrative Right upper Extremity [...] the plan Charges/Coding Visit Charges Inpatient E&M: 98954 Subs Hosp L1 12/21/24822 <Electronically signed by Austin Estrada MD> Cosigner Signature (if applicable): CC: ~ Signed [facility] Work Phone: 1(365) 324-412807-26-2025 Progress note [facility] Medical Records Department [address] [place] [address] Progress Note - Surgery 12/21/24806 MR#: [id number] Acct: [id number] Name: CARLOS ALBERTO KELLEY Lucian Brito. Rep #:[id number] : 1970 54 From: Austin Estrada MD PCP: Dr. Jhonatan Garcia, DO Status:ADM BRENNA Location: [place] VB495-4 Subjective Subjective Much improvement in right hand [...] 76.3 H, Lymph % (Auto) 10.6 L, Dorado % (Auto) 10.6 H, Eos % (Auto) [...] (Auto) 68.8, Lymph % (Auto) 15.1 L, Dorado % (Auto) 13.4 H, Eos % (Auto) [...] swelling. No significant bony abnormality Reading Location: [facility] Physical Exam Narrative Right upper Extremity [...] the plan Charges/Coding Visit Charges Inpatient E&M: 73878 [facility] Hosp L1 12/21/24 0845 Cosigner Signature (if applicable): CC: ~ Signed [facility]07-25-2025 History and physical note Author Yaz Dee [facility] Note Date/Time December 20, 2024 6:31 pm [facility] Medical Records Department [address] [place] [address] H&P Exam - Hospitalist 12/20/24 1755 MR#: [id number] Acct: [id number] Name: CARLOS ALBERTO KELLEY Jr. Rep #:[id number] : 1970 54 From: Yaz Dee MD PCP: Dr. Jhonatan Garcia, DO Status:ADM BRENNA [place] [facility] [place]W[facility]-[place] HPI - General General Date of Admission: 12/20/24 Date of Service: 12/20/24 Chief Complaint: Right hand pain and swelling HPI Narrative CARLOS ALBERTO KELLEY, is t32-typv-ymw male history of hypertension, gout, cardiomyopathy, GERD, diabetes, depression and anxiety, KOFFI who presented [facility] ED 12/20/2024 for right hand pain, swelling, [...] but no other new or acute complaints [facility] Medical History Ankle fracture, right Insomnia [...] Type Severity Reaction Status Date / Time Gfzeswq-JMV-GfR Reductase Allergy Mild Hives Verified 12/20/24 13:07 Inhibitor Social History housing: custodial Smoking Status: Former smoker ROS ROS Narrative [...] 76.3 H, Lymph % (Auto) 10.6 L, Dorado % (Auto) 10.6 H, Eos % (Auto) [...] swelling. No significant bony abnormality Reading Location: [facility] Assessment & Plan Assessment/Plan (1) Localized [...] Dee MD Charges/Coding Visit Charges Inpatient E&M: 69820 Init Hosp L2 12/20/24 1831 <Electronically signed by Yaz Dee MD> Cosigner Signature (if applicable): CC: Dr. Yaz Dee MD; Dr. Jhonatan Garcia, ~ Signed [facility] Work Phone: 1(208) 476-523007-25-2025 History and physical note Author Yaz Dee [facility] Note Date/Time December 20, 2024 6:31 pm [facility] Medical Records Department [address] [place] [address] H&P Exam - Hospitalist 12/20/24 1752 MR#: [id number] Acct: [id number] Name: CARLOS ALBERTO KELLEY Jr. Rep #:[id number] : 1970 54 From: Yaz Dee MD PCP: Dr. Jhonatan Garcia, Status:ADM BRENNA [place] [facility] YC818-7 HPI - General General Date of Admission: 12/20/24 Date of Service: 12/20/24 Chief Complaint: Right hand pain and swelling HPI Narrative CARLOS ALBERTO KELLEY, is g72-pcyn-vdh male history of hypertension, gout, cardiomyopathy, GERD, diabetes, depression and anxiety, KOFFI who presented [facility] ED 12/20/2024 for right hand pain, swelling, [...] but no other new or acute complaints [facility] Medical History Ankle fracture, right Insomnia [...] Type Severity Reaction Status Date / Time Rosuuji-MRR-JiO Reductase Allergy Mild Hives Verified 12/20/24 13:07 Inhibitor Social History housing: custodial Smoking Status: Former smoker ROS ROS Narrative [...] 76.3 H, Lymph % (Auto) 10.6 L, Dorado % (Auto) 10.6 H, Eos % (Auto) [...] swelling. No significant bony abnormality Reading Location: [facility] Assessment & Plan Assessment/Plan (1) Localized [...] Dee MD Charges/Coding Visit Charges Inpatient E&M: 44364 Init Hosp L2 12/20/24 1831 <Electronically signed by Yaz Dee MD> Cosigner Signature (if applicable): CC: Dr. Yaz Dee MD; Dr. Jhonatan Garcia, DO~ Signed [facility] Work Phone: 1(182) 345-372107-25-2025 Evaluation note* Diagnosis Onset Date Resolution Status Admit Date IV infiltrate acute December 20, 2024 5:52pm Localized swelling on right hand acu te December 20, 2024 5:52pm [facility] Work Phone: 1(528) 679-415807-25-2025 Evaluation note* Diagnosis Onset Date Resolution Status Admit Date Extravasation of intravenous contrast medium acute December 20, 2024 5:52pm IV infiltrate acute December 20, 2024 5:52pm Localized swelling on right hand acu te December 20, 2024 5:52pm Swelling of right hand acute Ju 2024 5:52pm [facility] Work Phone: 1(926) 996-443907-25-2025 Discharge summary Author Robles Botello [facility] Note Date/Time December 20, 2024 4:57 pm [facility] Medical Records Department [address] [place] [address] Emergency Department Summary 12/20/24 MR#: [id number] Acct: [id number] Name: CARLOS ALBERTO KELLEY Jr. Rep #:[id number] : 1970 54 From: Robles Botello MD [...] the swelling but is also very itchy. [facility] Medical History Ankle fracture, right Insomnia Obstructive [...] Type Severity Reaction Status Date / Time Wxbhhtb-UGA-XfW Reductase Allergy Mild Hives Verified 12/20/24 13:07 Inhibitor Social History housing: custodial Smoking Status: Former smoker ROS ROS ED [...] 76.3 H Lymph % (Auto) 10.6 L Dorado % (Auto) 10.6 H Eos % (Auto) [...] swelling. No significant bony abnormality Reading Location: [facility] Management Discussion w/another healthcare provider: Hospitalist and Childcare Attendant Discharge Plan Dx/Rx/DC Orders Clinical Impression: Swelling of right hand, Extravasation of intravenous contrast medium Disposition Disposition: Acute Care Hospital [facility] What to do if you have Problems For any increased pain, shortness of breath, bleeding, nausea or vomiting, chestpain, or any unexpected problems, contact your Primary Care Provider. Call [facility] ([phone]) or report to the closest Emergency Room. Call 911 if necessary. 12/20/241656 <Electronically signed by Robles Botello MD> Cosigner Signature (if applicable): CC: Dr. Jhonatan Garcia, DO ~ Signed [facility] Work Phone: 1(811) 647-372107-25-2025 History and physical note [facility] Medical Records Department [address] [place] [address] H&P Exam - Hospitalist 12/20/24 1752 MR#: [id number] Acct: [id number] Name: CARLOS ALBERTO KELLEY Jr. Rep #:[id number] : 1970 54 From: Yaz Dee MD PCP: Dr. Jhonatan Garcia, DO Status:ADM BRENNA Location: [place] [address] HPI - General General Date of Admission: 12/20/24 Date of Service: 12/20/24 Chief Complaint: Right hand pain and swelling HPI Narrative RAY WARREN, is e30-grfl-aze male history of hypertension, gout, cardiomyopathy, GERD, diabetes, depression and anxiety, KOFFI who presented [facility] ED 12/20/2024 for right hand pain, swelling, [...] 01 but no other new oracute complaints [facility] Medical History Ankle fracture, right Insomnia [...] Type Severity Reaction Status Date / Time Dngmmbq-GPN-WcL Reductase Allergy Mild Hives Verified 12/20/24 13:07 Inhibitor Social History housing: custodial Smoking Status: Former smoker ROS ROS Narrative [...] 76.3 H, Lymph % (Auto) 10.6 L, Dorado % (Auto) 10.6 H, Eos % (Auto) [...] swelling. No significant bony abnormality Reading Location: [facility] Assessment & Plan Assessment/Plan (1) Localized [...] Dee MD Charges/Coding Visit Charges Inpatient E&M: 60789 Init Hosp L2 12/20/24 1831 Cosigner Signature (if applicable): CC: Dr. Yaz Dee MD; Dr. Jhonatan Garcia, ~ Signed [facility]07-25-2025 Consult note Author Austin Estrada [facility] Note Date/Time December 20, 2024 4:04 pm [facility] Medical Records Department [address] [place] [address] Consultation - Surgical 12/20/24 1439 MR#: [id number] Acct: [id number] Name: CARLOS ALBERTO KELLEY Jr. Rep #:[id number] : 1970 54 From: Austin Estrada MD [...] CT scan. Patient has been in a custodial recently secondary to immobility because of aright lower extremity external fixator. He presented to the emergency department yesterday for chest pain and was getting a CT scan to rule out a DVT PE. He was discharged home to the custodial last night and return today for the [...] of atrial fibrillation and is on Coumadin. [facility] Medical History Ankle fracture, right Insomnia [...] Type Severity Reaction Status Date / Time Domiyia-GRM-VoZ Reductase Allergy Mild Hives Verified 12/20/24 13:07 Inhibitor Social History housing: custodial Smoking Status: Former smoker Physical Exam Narrative [...] Charges/Coding Visit Charges Office Visits / Consults: 20834 OV L3 New 30min 12/20/24 1604 <Electronically signed by Austin Estrada MD> Cosigner Signature (if applicable): CC: Dr. Jhonatan Garcia DO~ Signed [facility] Work Phone: 1(140) 855-353007-25-2025 Discharge summary [facility] Medical Records Department [address] [place] [address] Emergency Department Summary 12/20/24 MR#: [id number] Acct: [id number] Name: CARLOS ALBERTO KELLEY Jr. Rep #:[id number] : 1970 54 From: Robles Botello MD [...] the swelling but is also very itchy. [facility] Medical History Ankle fracture, right Insomnia Obstructive [...] Type Severity Reaction Status Date / Time Dsrxbbs-EDD-WsO Reductase Allergy Mild Hives Verified 12/20/24 13:07 Inhibitor Social History housing: custodial Smoking Status: Former smoker ROS ROS ED [...] 76.3 H Lymph % (Auto) 10.6 L Dorado % (Auto) 10.6 H Eos % (Auto) [...] swelling. No significant bony abnormality Reading Location: [facility] Management Discussion w/another healthcare provider: Hospitalist and Childcare Attendant Discharge Plan Dx/Rx/DC Orders Clinical Impression: Swelling of right hand, Extravasation of intravenous contrast medium Disposition Disposition: Acute Care Hospital [facility] What to do if you have Problems For any increased pain, shortness of breath, bleeding, nausea or vomiting, chestpain, or any unexpected problems, contact your Primary Care Provider. Call [facility] ([phone]) or report tothe closest Emergency Room. Call 911 if necessary. 12/20/24 1657 Cosigner Signature (if applicable): CC: Dr. Jhonatan Garcia, DO ~ Signed [facility]07-25-2025 Consult note [facility] Medical Records Department [address] [place] [address] Consultation - Surgical 12/20/24 1439 MR#: [id number] Acct: [id number] Name: CARLOS ALBERTO KELLEY Jr. Rep #:[id number] : 1970 54 From: Austin Estrada MD [...] CT scan. Patient has been in a custodial recently secondary to immobility [facility]. He presented to the emergency department yesterday for chest pain and was getting a CT scan to rule out a DVT PE. He was discharged home to the custodial last night and return today for the [...] of atrial fibrillation and is on Coumadin. [facility] Medical History Ankle fracture, right Insomnia [...] Type Severity Reaction Status Date / Time Elxnjko-YLS-FaC Reductase Allergy Mild Hives Verified 12/20/24 13:07 Inhibitor Social History housing: custodial Smoking Status: Former smoker Physical Exam Narrative [...] Charges/Coding Visit Charges Office Visits / Consults: 86068 OV L3 New 30min 12/20/24 1604 Cosigner Signature (if applicable): CC: Dr. Jhonatan Garcia, ~ Signed [facility]07-25-2025 Radiology Diagnostic study note [facility] Imaging Services [address] [place], [place] [address] Hand Min 3 Views MR#: [id number] Acct: [id number] Name: CARLOS ALBERTO KELLEY Jr. Rep #: [id number] : 1970 M 54 From: Nevaeh Lundberg MD PCP: Dr. Jhonatan Garcia DO Status: REG ER Study:Hand Min 3 Views Date of Exam: Exam# [id number] Ordering Dr: Refugio Botello MD PROCEDURE: HAND [...] swelling. No significant bony abnormality Reading Location: [id number] CC: Dr. Robles Botello MD; Dr. Jhonatan Garcia DO ~ Pack Worker: Signed [facility]07-25-2025 Radiology Diagnostic study note [facility] Imaging Services [address] [place], [place] [address] CTA Chest W/WO Contrast MR#: [id number] Acct: [id number] Name: CARLOS ALBERTO KELLEY JrEverett Rep #: [id number] : 1970 M 54 From: Whitley Lewis MD PCP: Dr. Jhonatan Garcia DO Status: REG ER Study:CTA Chest W/WO Contrast Date of Exam: 12/20/24 Exam# [id number] Ordering Dr: Nguyễn Al DO PROCEDURE: CTA [...] No embolism, dissection, or pneumonia. [facility] CC: Dr. Jhonatan Garcia DO; Dr. Nguyễn Al DO ~ Pack Worker: Signed [facility]07-24-2025 Radiology Diagnostic study note [facility] Imaging Services [address] [place] [address] Chest 1 View (Portable) MR#: [id number] Acct: [id number] Name: CARLOS ALBERTO KELLEY Rep #: [id number] : 1970 M 54 From: Britney Avalos MD PCP: STACEY Pena Status: PRE E R Study:Chest 1 View (Portable) Date of Exam: 12/19/24 Exam# [id number] Ordering Dr: Nguyễn Al DO PROCEDURE: CHEST [...] atelectasis, or edema also possible. Reading Location: [id number] CC: STACEY Correa; Dr. Nguyễn Al DO ~ Pack Worker: Signed [facility]07-20-2025 Hospital Discharge instructionsAdditional Instructions Plastic surgery discharge instructions Continue elevation of the right upper extremity especially at night and when lying in bed for the next several days for the swelling to decrease Recommend bacitracin or Neosporin and Band-Aids for any skin excoriations on the dorsum of the right hand secondary to the blistering. [facility]: 1(271) 966-131007-18-2025 Hospital Discharge instructions Patient Education 12/13/2024 10:21:44 [...] breathing. Follow these instructions at home: Take txox-vnz-eligdpu and prescription medicines only as told by [...] 05/20/2014 Document Revised: 04/27/2018 Document Reviewed: 11/30/2016 [employer] Patient Education 2020 [employer]. Follow Up Care 12/10/2024 23:38:17 With:GIRMA CORREA Address: [address] [place] [phone] When: Unknown Comments:Please call to schedule with your PCP when you discharge from [facility]. With:NANI QUINTANA DO, Orthopedic Address: [address], [place] [phone] When:2-4 days Comments:Please call to schedule to have the external fixator removed. [facility] 07-18-2025 Note Discharge Instructions Thank you for allowing [facility] to assist you with your healthcare needs. The following is importantdischarge information regarding your hospital visit. Your Care Team [facility] Your Diagnosis Acute respiratory failure with hypoxia Bacteremia Chest pain CHF with cardiomyopathy COPD exacerbation HTN (hypertension) Morbid obesity with BMI of 40.0-44.9, adult Paroxysmal atrial fibrillation Sheltered homelessness Shortness of breath Type 2 diabetes mellitus with hyperlipidemia What to do next Follow Up Appointments Follow Up with GIRMA CORREA Where:[address] [place] [phone] Additional Information: Please call to schedule with your PCP when you discharge from [facility]. Follow Up with NANI QUINTANA DO, Orthopedic When:Within 2-4 days Where:[address] [facility], [place] [phone] Additional Information: Please call to schedule to [...] breathing. Follow these instructions at home: Take apyk-qqu-iieobmg and prescription medicines only as told by [...] 05/20/2014 Document Revised: 04/27/2018 Document Reviewed: 11/30/2016 ElseStandardized Safety Patient Education 2020 [employer] Additional Information VACCINATE! IT SAVES LIVES! Members of the community who have not yet received the COVID-19 vaccine and would like to receive it can visit one of [facility] vaccine clinics. There are many vaccine clinic locations within the [facility]. For locations and available times, please visit https://gettheshot.coronavirus.[place].gov/. It is important to note that some COVID mobile vaccine clinics are held outdoors and may be canceled in rainy or stormy conditions. To learn more about pediatric vaccinations (ages 5-11), we invite you to visit the [facility] webpage. https://www.[facility].org/pages/9977-Raulw-Bcriqqoyvjo-Oewyfinlsq-Sdfsv-Lyo stions.htmlTo learn more about the COVID-19 vaccine, we invite you to visit the CDC website for a list of frequently asked questions.https://www.cdc.gov/coronavirus/2019-ncov/vaccines/faq.html [facility] [employer] Patient Portal Access Instructions: Stay connected with your healthcare team and access your personal medical information anytime with the [employer] [facility] Patient Portal. Please follow the directions below to create your [facility] [facility] account: 1.Access the email account you provided upon registration to the hospital/physician office.2.Look for an invitation email from [facility].3.Open the email and access the invitation link: AcceptInvitation to [facility].4.Fill in the required orr to create your account. To access your account, visit [email or web address]. Click the blue button labeled "Access Patient Portal" and then log in with the username and password that you created in the steps above. You will be able to view your test results, lab results, a summary of your visits, upcoming appointments and more. There is also a convenient messaging option where you can send secure messages to your [employer]vider. In addition, you will have the ability to download any documents or summaries to your computer and/or send the information securely to a physician. Remember that your healthcare information is confidential, so carefully consider who you will allowto register on the [employer] Patient Portal for access to your information. You can also access the [facility] Patient Portal on the [facility] frida. Simply click on "Patient Portal" and then log into your account. If you would like to receive a full copy of your medical records, please contact the [facility] Medical Records Department by calling [phone], Monday through Monday between 8 a.m. and [...] Call your local pharmacy or go to http://bit.[employer]/0D7Yv0k to find one close to you.3.Make use of household items: Use cat litter or old coffee grounds to dispose medications if other options arenot available. Mix your drugs with these household products, seal them in an airtight container andthrow it into the garbage. Call [facility]: [phone] to be sure your drugs can be [...] that I should contact my d angelaor. Patient/Conveyor System Dispatcher Signature: Date/Time: Relationship to Patient: Witness Name/Signature: Date/Time: [facility]07-18-2025 Pastoral care Progress note Pastoral Care Note Entered On: 12/13/2024 9:35 EDT Performed On: 12/13/2024 9:33 EDT by Carlos Alberto Nesbitt Pastoral Care Type of Pastoral Visit : Follow up visit Spiritual Care Visit Initiated by : Administrative Clerk Spiritual Care Reason for Visit : General [...] Carlos Alberto Nesbitt on 12/13/2024 09:33 AM [facility]07-17-2025 Note Date of Service 12/12/2024 Chief Complaint COPD exacerbation Subjective 54-year-old male with past medical history significant for COPD/asthma, KOFFI, tachycardia induced cardiomyopathy with recovered EF, atrial fibrillation anticoagulated with Xarelto, type 2 diabetes mellitus. Patient presented to [facility] emergency department 12/10/2024 with dyspnea and [...] for SNF. He has been accepted at [facility] and pre- CERT has been [...] by NARESH MORENO on 12/12/2024 12:39 PM [facility]07-17-2025 Pastoral care Progress note Pastoral Care Note Entered On: 12/12/2024 9:52 EDT Performed On: 12/12/2024 9:48 EDT by Carlos Alberto Nesbitt Pastoral Care Type of Pastoral Visit : Initial visit Spiritual Care Visit Initiated by : Administrative Clerk Spiritual Care Reason for Visit : General [...] wants to get back to a former oriental orthodox; pt welcomes someone to talk with and for prayer to be given Pastoral Care Visit Length : 20 minute(s) Carlos Alberto Nesbitt - 12/12/2024 9:48 EDT Digitally Signed by Carlos Alberto Nesbitt on 12/12/2024 09:48 AM [facility]07-17-2025 Note* Exam Date Time Procedure Performing Provider Status 12/12/24 5:56 AM XR Chest 1 View MICK LEGGETT MD; Aut h (Verified) [id number] ORIGINAL EXAMINATION: ONE XRAY VIEW OF THE [...] 12/12/2024 6:38:29 AM Ordering Provider: VENITA BROTHERS [facility]07-16-2025 Note. MICRO - Microbiology PROCEDURE: Streptococcus Pneumoniae [...] Locations *1: This test was performed at: [facility], [address] [place] [address], [facility] [place] [facility] , [facility]07-16-2025 Note. MICRO - Microbiology PROCEDURE: Legionella [...] Locations *1: This test was performed at: [facility], [address] [place] [address], [address] , [facility]07-16-2025 Evaluation + Plan noteExtracted from: Title:History and Physical Author:ERLIN ALANIZ APRN-TOP CLEANER Date:12/11/24 1. COPD exacerbation Acute, new onset, [...] evaluated by cardiology earlier this morning at [facility]. Repeat troponin in the am. 5. CHF [...] no longer feels safe in that environment. tin recovery worker consulted for discharge planning. 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 Pt did receive 324 aspirin waitstaff captain and is having zero pain. History of Present Illness Patient is a 54-year-old male, who follows with Girma Correa CNP with a past medical history significant for COPD, asthma, CHF with cardiomyopathy, hypertension, atrial fibrillation, type 2 diabetes, and KOFFI, presented to [facility] emergency department with the chief complaint [...] home and would [facility]. [facility] [facility] with [facility] RVR and bacteremia. Patient [...] evaluated by cardiology earlier this morning at [facility]. Repeat troponin in the am. 5. CHF [...] no longer feels safe in that environment. tin recovery worker consulted for discharge planning. DVT prophylaxis [...] ANGEL GARCES DO on 12/11/2024 03:06 PM [facility]07-16-2025 Note* Exam Date Time Procedure Performing Provider Status 12/11/24 2:[address] Angiography Chest w/ Contrast MICK WAGNER MD; Auth (Verified) [id number] ORIGINAL EXAMINATION: CTA OF THE CHEST 12/11/2024 [...] Sign Date: 12/11/2024 3:29:36 AM Ordering Provider: [facility]07-16-2025 Note* Exam Date Time Procedure Performing Provider Status 12/11/24 12:31 AM XR Chest 1 View MICK LEGGETT MD; (Verified) [id number] ORIGINAL EXAMINATION: ONE XRAY VIEW OF THE [...] 12/11/2024 1:19:48 AM Ordering Provider: DELORES MURO [place] [id number] Note* Exam Date Time Procedure Performing Provider Status 12/10/24 11:55 PM EKG [ED AOH] - CV DELORES MURO DO; Auth (Verified) ECG Final Report Sinus rhythm Left axis deviation Abnormal R-wave progression, late transition Compared to ECG at 11/24/2024 15:28:54 Electronic Signature: DELORES MURO DO 12/11/2024 02:07:48 [facility]07-09-2025 Hospital Discharge instructions Patient Education 12/04/2024 17:09:41 [...] splint gets wet, dry it with a occupational therapy department chair on a cool setting. You may use epbr-bak-ztfdtzj pain medicine to control pain, unless another [...] cast or splint develops cracks or breaks 0729-4200 [employer]. [address] [place] [address]. All rights reserved. This information is not intended as a substitute for professional medical care. Always follow yourhealthcare professional's instructions. Follow Up Care 12/04/2024 16:40:24 With:GIRMA CORREA Address: [address] [place] [address] [phone] When:2-4 days [facility] 07-09-2025 Note Discharge Instructions Thank you for allowing [facility] to assist you with your healthcare needs. The following is importantdischarge information regarding your hospital visit. Diagnosis from Today's Visit Visit for wound check What to Do Next Instructions from Your Care Team No qualifying data available. Post Acute Orders No qualifying data available. You Need to Schedule the Following Appointments Follow Up with GIRMA CORREA When:Within 2-4 days Where:[place] [address] [phone] Allergies Statins myalgia Medications Please ask your [...] splint gets wet, dry it with a occupational therapy department chair on a cool setting. You may use hnnw-smr-eobhwqv pain medicine to control pain, unless another [...] cast or splint develops cracks or breaks 3098-0882 [employer]. [address] [place] [address]. All rights reserved. This information is not intended as a substitute for professional medical care. Always follow yourhealthcare professional's instructions. Additional Information VACCINATE! IT SAVES LIVES! Members of the community who have not yet received the COVID-19 vaccine and would like to receive it can visit one of [facility] vaccine clinics. There are many vaccine clinic locations within the [facility]. For locations and available times, please visit www.gettheshot.coronavirus.[place].gov/. It is important to note that some COVID mobile vaccine clinics are held outdoors and may be canceled in rainy or stormy conditions. To learn more about pediatric vaccinations (ages 5-11), we invite you to visit the [facility] webpage. https://www.[facility].org/pages/8289-Lcyup-Jlqnxnstusi-Zhgilpviio-Iprnq-Rvj stions.htmlTo learn more about the COVID-19 vaccine, we invite you to visit the CDC website for a list of frequently asked questions. https://www.cdc.gov/coronavirus/2019-ncov/vaccines/faq.html [facility] Patient Portal Access Instructions: Stay connected with your healthcare team and access your personal medical information anytime with the [facility] Patient Portal. If you would like a full copy of your medical records please contact the [facility] Medical Records Department Monday through Monday between 8a.m. and 4:30p.m. Please follow the directions below to access the portal: 1.Access the email account you provided upon registration to the [facility].2.Look for an invitation email from [facility].3.Open the email and access the invitation link: Accept Invitation to [facility]4.Fill in the required orr to create your account. Sign into www.[employer] with your username and password that you [...] you will allow to register on the [facility] Patient Portal for access to your information. You can also access the [facility] Patient Portal on the [employer]. Simply click on "Health Records" under "[employer]" and then click on the [employer] logo. HOW TO SAFELY DISPOSE OF PRESCRIPTION [...] Call your local pharmacy or go to [email or web address] to find one close to you.3.Make use of household items: Use cat litter or old coffee grounds to dispose medications if other options arenot available. Mix your drugs with these household products, seal them in an airtight container andthrow it into the garbage. Call [facility]: [phone] to be sure your drugs can be [...] that I should contact my d octor. Patient/Conveyor System Dispatcher Signature: Date/Time: Relationship to Patient: Witness Name/Signature: Date/Time: [facility]07-06-2025 Note. MICRO - Microbiology PROCEDURE: Blood Culture [...] Locations *1: This test was performed at: [address], [facility]- , [facility] [id number] Note. MICRO - Microbiology PROCEDURE: Blood Culture [...] Locations *1: This test was performed at: [address], [facility]- , [facility] [id number] Note. MICRO - Microbiology PROCEDURE: Blood Culture [...] Locations *1: This test was performed at: [address], [place], [address]- , [facility] [id number] Cardiology Progress note Date of Service 11/28/2024 [...] MIKEL MCDANIEL DO on 11/28/2024 11:46 AM [facility]4094 Hospital Discharge instructions Patient Education 11/28/2024 15:26:42 Atrial Fibrillation, Yhzh-wn-Enhn Atrial Fibrillation Atrial fibrillation is a type [...] Follow these instructions at home: Medicines Take jzpu-pht-fzuzvso and prescription medicines only as told by [...] 02/21/2009 Document Revised: 07/19/2018 Document Reviewed: 07/06/2018 [employer] Patient Education 2020 [employer] Follow Up Care 11/24/2024 07:01:00 With:NANI QUINTANA DO, Orthopedic Address: [address], [place] [address]- [phone] When:12/06/2024 09:00:00 Comments:Please Dr. Quintana's office to schedule appointment for follow up to discuss and schedule possible ex-fix removal. With:[facility]IRMA CORREA [facility] Address: [address] [facility] [place] [address]- [phone] When:1-2 days Comments:Please call the office to schedule a hospital follow up appointment. [facility] 07-03-2025 Note Discharge Instructions Thank you for [...] 1-2 days Where:[address] [facility] [place] [address]- [phone] Additional Information: Please call the office to schedule a hospital follow up appointment. Follow Up with NANI QUINTANA DO, Orthopedic When:12/06/2024 09:00 AM EDT Where:[address], [place] [address]- [phone] Additional Information: Please Dr. Quintana's office to [...] a day Duration: 14 Days Pickup at [facility]/pharmacy #[id number] Changed potassium chloride (Potassium Chloride (Eqv-K-Tab) 20 [...] Information [facility]/pharmacy #[id number]: [address], [place] [phone] Please take this list to your next [...] Follow these instructions at home: Medicines Take ecfw-hap-hrponrz and prescription medicines only as told by [...] 02/21/2009 Document Revised: 07/19/2018 Document Reviewed: 07/06/2018 [employer] Patient Education 2020 [employer]. Additional Information VACCINATE! IT SAVES LIVES! Members of the community who have not yet received the COVID-19 vaccine and would like to receive it can visit one of [facility] vaccine clinics. There are many vaccine clinic locations within the [facility]. For locations and available times, please visit https://gettheshot.coronavirus.[place].gov/. It is important to note that some COVID mobile vaccine clinics are held outdoors and may be canceled in rainy or stormy conditions. To learn more about pediatric vaccinations (ages 5-11), we invite you to visit the [facility] webpage. https://www.[facility].org/pages/3447-Bryqp-Enzuuwkpheu-Drzwddxufu-Zwwpj-Cdt stions.htmlTo learn more about the COVID-19 vaccine, we invite you to visit the CDC website for a list of frequently asked questions.https://www.cdc.gov/coronavirus/2019-ncov/vaccines/faq.html [facility] Patient Portal Access Instructions: Stay connected with your healthcare team and access your personal medical information anytime with the [facility] Patient Portal. Please follow the directions below to create your [facility] account: 1.Access the email account you provided upon registration to the hospital/physician office.2.Look for an invitation email from [facility].3.Open the email and access the invitation link: AcceptInvitation to [facility].4.Fill in the required orr to create your account. To access your account, visit [employer]. Click the blue button labeled "Access Patient [...] who you will allowto register on the [facility] for access to your information. You can also access the [facility] Patient Portal on the [facility] frida. Simply click on "Patient Portal" and then log into your account. If you would like to receive a full copy of your medical records, please contact the [facility] Medical Records Department by calling [phone], Monday through Monday between 8 a.m. and [...] Call your local pharmacy or go to [email or web address] to find one close to you.3.Make use of household items: Use cat litter or old coffee grounds to dispose medications if other options arenot available. Mix your drugs with these household products, seal them in an airtight container andthrow it into the garbage. Call [facility]: [phone] to be sure your drugs can be [...] COPY. Signatures Patient Education Materials Atrial Fibrillation, Oaqr-lm-Tvvt Medication Leaflets My discharge plan and instructions have been reviewed and explained to me and I,CARLOS ALBERTO KELLEY JR understand my current condition and have read and understand these discharge instructions. I have received a written copy of the plan/instructions. If I have questions, I am aware that I should contact my d octor. Patient/Conveyor System Dispatcher Signature: Date/Time: Relationship to Patient: Witness Name/Signature: Date/Time: [facility]dl[facility]wy58-53-8466 Discharge summary Date of Service 11/28/2024 Discharge [...] external fixator in place. Patient presented to [facility] as a transfer from [facility] on 11/24/2024 with complaints of palpitations [...] CORREA When:Within 1-2 days Where:[address] [place] [address]- [phone] Additional Information: Please call the office to [...] MAXIME COLLINS DO on 11/28/2024 01:25 PM [facility] CenterPijgajpq18-32-9038 Infectious disease Progress note Date of Service [...] with orthopedics presents to the hospital from [facility] on 11/24/2024 as a transfer for [...] by ORI TOMLIN on 11/28/2024 12:50 PM [facility] CenterZunazppx68-86-6581 Cardiology Progress note Date of Service 11/28/2024 [...] MIKEL MCDANIEL DO on 11/28/2024 11:46 AM [facility] CenterCegcqhhb13-93-4690 Note* Exam Date Time Procedure Performing Provider Status 11/28/24 11:04 AM Transesophageal Echo cardiogram - CV FREDDY HARTLEY MD; Auth (Verified) [facility] CenterPuthuozu45-75-9357 Anesthesiology Consult note Patient: CARLOS ALBERTO KELLEY [...] list: Medical Asthma exacerbation / SNOMED CT 6806410767 / Confirmed COPD exacerbation / SNOMED CT 0283335440 / Confirmed Atopic dermatitis / SNOMED CT 10744486 / Confirmed Atypical chest pain / SNOMED CT 615077385 / Confirmed Morbid obesity with BMI of 40.0-44.9, adult / SNOMED CT 2692020333 / Confirmed Bronchitis / SNOMED CT 04006742 / Confirmed Cardiomyopathy / SNOMED CT 011023088 / Confirmed CHF with cardiomyopathy / SNOMED CT 72518737 / Confirmed Cough / SNOMED CT 53192480 / Confirmed Dental abscess / SNOMED CT 088001980 / Confirmed Depression / SNOMED CT 87328124 / Confirmed Dyspnea / SNOMED CT 310709976 / Confirmed Generalized anxiety disorder / SNOMED CT 44603684 / Confirmed Hypertension associated with type 2 diabetes mellitus / SNOMED CT 5328844263 / Confirmed Insomnia / SNOMED CT 577805180 / Confirmed LVH (left ventricular hypertrophy) / SNOMED CT 16875886 / Confirmed Moderate asthma / SNOMED CT 0070827528 / Confirmed Near syncope / SNOMED CT 3133098310 / Confirmed Chewing tobacco nicotine dependence / SNOMED CT 25982144 / Confirmed KOFFI (obstructive sleep apnea) / SNOMED CT 236391751 / Confirmed Right knee pain / SNOMED CT 4780302359 / Confirmed Paroxysmal atrial fibrillation / SNOMED CT 485475141 / Confirmed Screening for ischemic heart disease / SNOMED CT 370113202 / Confirmed Screening for colon cancer / SNOMED CT 527084479 / Confirmed Statin intolerance / SNOMED CT 8851314076 / Confirmed Tachyarrhythmia / SNOMED CT 51529911 / Confirmed Type 2 diabetes mellitus with hemoglobin A1c goal of less than 7.0% / SNOMED CT 333603107 / Confirmed Type 2 diabetes mellitus with hyperlipidemia / SNOMED CT 075984026 / Confirmed, Active Problems (32) Asthma exacerbation [...] Histories Past Medical History: Resolved Morbid obesity (403997225): Resolved. Diabetes mellitus (965656695): Resolved. Hypertension (3862675286): Resolved. BMI 45.0-49.9, adult (4058947974): Resolved. Anxiety (21481721): Resolved. Prediabetes (0862973956): Resolved. Obstructive sleep apnea (546090822): Resolved. Right flank pain (145508819): Resolved. Hyperlipidemia (98908319): Resolved. Mass of arm (148550230): Resolved. Family History: Cancer Father Heart disease Mother Grandparent Stroke Father Procedure history: Excision (255806947) on 03/25/2024 at 53 Years. Comments: 03/26/2024 7:50 Karol Curry LPN excision of multilobulated lipomatous mass right forearm Echocardiogram (5984834857) on 01/31/2024 at 53 Years. Cardioversion (507268306) on 12/23/2022 at 52 Years. Echocardiogram (8935232929) on 11/11/2022 at 52 Years. Comments: 03/20/2023 [...] atrial pressure is 15 mm Hg Elbow (5879336259). Comments: 07/11/2022 8:26 SHAHEEN Nunez - right [...] Oral36.6 DegC (NOV 28 06:51) Heart Rate Xpbwps78 bpm (NOV 28 09:06) ZFK011 mmHg (NOV 28 06:51) DBP63 mmHg (NOV [...] range of motion. Integumentary: Intact, Warm, Dry, [place]. Neurologic: Alert, Oriented. Review / Management Results [...] 26)9.1(NOV 25)9.2(NOV 24) . Assessment and Plan [place] [employer] Anesthesiologists (ASA) physical status classification: [...] ROJELIO NORIEGA DO on 11/28/2024 09:55 AM [facility] CenterVcrwudgn79-89-1405 Note. MICRO - Microbiology PROCEDURE: Blood Culture [...] Locations *1: This test was performed at: [facility], [address] [place] [address], [address]- , [facility]07-02-2025 Note Date of Service 11/27/2024 Chief Complaint Palpitations Subjective 54-year-old male with a past medical history of COPD, tobacco abuse, A-fib, type 2 diabetes, recentankle fracture with external fixator in place. Presented to [facility] as a transfer from [facility] on 11/24/2024 with complaints of palpitations, [...] by MELISSA ORTEGA on 11/27/2024 12:32 PM [facility] CenterOutwwgoi84-43-6111 Infectious disease Progress note Date of Service [...] with Spectrum presents to the hospital from [facility] on 11/24/2024 as a transfer for [...] by ORI TOMLIN on 11/27/2024 02:19 PM [facility] CenterBmeqnugd96-65-7936 Note. MICRO - Microbiology PROCEDURE: Blood Culture (bacterial) [O1 *1] SOURCE: Blood BODY SITE: COLLECTED DATE/TIME: 11/24/2024 05:08 EDT RECEIVED DATE/TIME: 11/24/2024 12:36 EDT START DATE/TIME: 11/24/2024 12:37 EDT FREE TEXT SOURCE: FINAL REPORTS Final Report [] Verified Date/Time/Personnel: 11/27/2024 09:17 EDT Staphylococcus aureus Isolated from aerobe and anaerobe bottles. Refer to previous culture for susceptibility. [id number] PRELIMINARY REPORTS Preliminary Report [] Verified Date/Time/Personnel: [...] Locations *1: This test was performed at: [address], [facility] [place] [facility] , [facility]07-02-2025 Note. MICRO - Microbiology PROCEDURE: Blood [...] Locations *1: This test was performed at: [address], [facility] [place] [facility] , [facility]07-01-2025 Orthopaedic surgery Consult note Date of Service 11/25/2024 Reason for Consultation Pin site care History of Present Illness Chucky is a 54-year-old male who is admitted to [facility] for A-fib with RVR. Patient had recent [...] obturator, femoral, LCN, DPN, SPN, sural, saphenous, M/HOP STRAINER - Calf soft and non-tender Left Lower Extremity - No tenderness palpation about left ankle. Skin intact. - Motor: Hip flexion/extension, quadriceps, hamstrings, gastruc/soleus, EHL/FHL intact. - Foot warm and perfused. BCR - Sensation grossly intact L2-S2: obturator, femoral, LCN, DPN, SPN, sural, saphenous, M/HOP STRAINER - Calf soft and non-tender Lab Results [...] SUZE MISHRA DO on 11/26/2024 07:11 AM [facility] CenterJhaxptuq85-01-1747 Cardiology Progress note Date of Service 11/26/2024 [...] CHANDRAKANT SUAREZ DO on 11/26/2024 03:37 PM [facility] CenterYlwhiyvs38-43-0417 Cardiology Progress note Date of Service 11/26/2024 [...] CHANDRAKANT SUAREZ DO on 11/26/2024 03:37 PM [facility] CenterCzpitrhj11-99-5406 Note Date of Service 11/26/2024 Chief Complaint Weakness Subjective 54-year-old male with a past medical history of COPD, tobacco abuse, A-fib, type 2 diabetes, recentankle fracture with external fixator in place. Presented to [facility] as a transfer from [facility] on 11/24/2024 with complaints of palpitations, [...] by MELISSA ORTEGA on 11/26/2024 12:18 PM [facility] CenterIiuuidrh35-46-3967 Infectious disease Progress note Date of Service [...] repair tomorrow at outside facility presents from [facility] on 11/24/2024 is transferred for shortness [...] by ORI TOMLIN on 11/26/2024 02:31 PM [facility] CenterNvnfdajh26-03-4134 Infectious disease Consult note Date of Service 11/25/2024 Reason for Consultation Staph aureus bacteremia Referring Physician Dr. Juarez History of Present Illness Patient is a 54-year-old male with past medical history of COPD, tobacco abuse, atrial fibrillation, type 2 diabetes, recent right ankle fracture with external fixator with scheduled operative repairtomorrow at outside facility presents from [facility] on 11/24/2024 as a transfer for [...] repair tomorrow at outside facility presents from [facility] on 11/24/2024 as a transfer for [...] by ORI TOMLIN on 11/25/2024 04:42 PM [facility] CenterDignsvrr19-68-3042 Note* Exam Date Time Procedure Performing Provider Status 11/25/24 6:03 PM XR Ankle Minimum 3 Views Left KAILEY COLEY MD; Auth (Verified) [id number] ORIGINAL EXAMINATION: THREE XRAY VIEWS OF THE [...] 11/25/2024 7:46:46 PM Ordering Provider: SUZE MISHRA [facility] CenterXpnlcltq60-22-1290 Note* Exam Date Time Procedure Performing Provider Status 11/25/24 6:03 PM XR Tibia/Fibula 2 Views Right KAILEY COLEY MD; Auth (Verified) [id number] ORIGINAL EXAMINATION: TWO XRAY VIEWS OF THE [...] 11/25/2024 7:42:39 PM Ordering Provider: ORI TOMLIN [facility] CenterBbivhbyh47-43-1862 Note* Exam Date Time Procedure Performing Provider Status 11/25/24 6:01 PM XR Ankle Minimum 3 Views Right TRACE ROUSE MD; Auth (Verified) [id number] ORIGINAL EXAMINATION: THREE XRAY VIEWS OF THE [...] 11/25/2024 7:39:01 PM Ordering Provider: SUZE MISHRA [facility] CenterLfratyft52-59-1817 Orthopaedic surgery Consult note Date of Service 11/25/2024 Reason for Consultation Pin site care History of Present Illness Chucky is a 54-year-old male who is admitted to [facility] for A-fib with RVR. Patient had recent [...] obturator, femoral, LCN, DPN, SPN, sural, saphenous, M/HOP STRAINER - Calf soft and non-tender Left Lower Extremity - No tenderness palpation about left ankle. Skin intact. - Motor: Hip flexion/extension, quadriceps, hamstrings, gastruc/soleus, EHL/FHL intact. - Foot warm and perfused. BCR - Sensation grossly intact L2-S2: obturator, femoral, LCN, DPN, SPN, sural, saphenous, M/HOP STRAINER - Calf soft and non-tender Lab Results [...] SUZE MISHRA DO on 11/26/2024 07:11 AM [facility] CenterZsothxnh01-07-9993 Cardiology Progress note Date of Service 11/25/2024 [...] CHANDRAKANT SUAREZ DO on 11/25/2024 02:06 PM [facility] CenterSkwzfofh99-20-6953 Note Date of Service 11/25/2024 Chief Complaint Right lower extremity pain Subjective 54-year-old male with a past medical history of COPD, tobacco abuse, A-fib, type 2 diabetes, recentankle fracture with external fixator in place. Presented to [facility] as a transfer from [facility] on 11/24/2024 with complaints of palpitations, [...] of Discharge 24 hours Anticipated DC Disposition [facility] Digitally Signed by MELISSA ORTEGA on 11/25/2024 12:35 PM Digitally Signed by MELISSA ORTEGA on 11/25/2024 01:00 PM [facility] CenterEibxqaro50-32-7245 Infectious disease Consult note Date of Service 11/25/2024 Reason for Consultation Staph aureus bacteremia Referring Physician Dr. Juarez History of Present Illness Patient is a 54-year-old male with past medical history of COPD, tobacco abuse, atrial fibrillation, type 2 diabetes, recent right ankle fracture with external fixator with scheduled operative repairtomorrow at outside facility presents from [facility] on 11/24/2024 as a transfer for [...] repair tomorrow at outside facility presents from [facility] on 11/24/2024 as a transfer for [...] by ORI TOMLIN on 11/25/2024 04:42 PM [facility] CenterHcmatmqw31-40-8967 Cardiology Progress note Date of Service 11/25/2024 [...] CHANDRAKANT SUAREZ DO on 11/25/2024 02:06 PM [facility] CenterBzshnxpa95-58-2160 Note* Exam Date Time Procedure Performing Provider Status 6/29/25 3:28 PM EKG (ED) - CV JORDON ARCOS MD; Auth (Verified) ECG Final Report SINUS RHYTHM LAD, CONSIDER LEFT ANTERIOR FASCICULAR BLOCK LOW VOLTAGE, PRECORDIAL LEADS CONSIDER ANTERIOR INFARCT Electronic Signature: JORDON ARCOS MD 11/25/2024 09:46:09 [facility] CenterNhuekbwr47-70-2370 Cardiology Consult note Reason for Consultation Atrial [...] BENNETT SMITH MD on 11/24/2024 03:05 PM [facility] CenterFojvjhmt46-74-8021 Note* Exam Date Time Procedure Performing Provider Status 11/24/24 2:00 PM XR Chest 1 View MELISSA SANTOS MD; Dixie h (Verified) [id number] ORIGINAL EXAMINATION: ONE XRAY VIEW OF THE [...] 11/24/2024 2:03:25 PM Ordering Provider: KARLENE BARCENAS [id number] Evaluation + Plan noteExtracted from: Title:History and [...] Metabolic Panel 08/27/24 * N-Terminal proBNP 08/27/24 [facility] 06-29-2025 History and physical note Date of Service November 24, 2024 Chief Complaint Palpitations, shortness of breath History of Present Illness This is a 54-year-old male with a past medical history consistent with COPD, tobacco abuse, atrial fibrillation, T2DM, recent ankle fracture with scheduled operative repair tomorrow at an outside facility right presents from [facility] as a transfer for palpitations in [...] Patient was given Cardizem bolus in the [facility] ED, no further therapy given due to BP drop. On exam, patient states that his work of breathing is improved. Was placed on 2 L nasal cannula in setting of A-fib with RVR. Denies chest pain, palpitations at this time. Had report of visual disturbance, hallucinations. States this happened once while in [place]. Denies any other new or acute complaints. [...] KARLENE BARCENAS DO on 11/24/2024 01:02 PM [facility] CenterPttnmwit32-19-3587 Note* Exam Date Time Procedure Performing Provider Status 11/24/24 5:[address] Angiography Chest w/ Contrast DARNELL MOLINA MD; Auth (Verified) [id number] ORIGINAL EXAMINATION: CTA OF THE CHEST 11/24/2024 [...] 11/24/2024 6:01:11 AM Ordering Provider: CIRILO PATEL [place] [id number] Note* Exam Date Time Procedure Performing Provider Status 11/24/24 5:[address] Head or Brain w/o Contrast DARNELL MOLINA MD; Auth (Verified) [id number] ORIGINAL EXAMINATION: CT OF THE HEAD WITHOUT [...] 11/24/2024 5:55:14 AM Ordering Provider: CIRILO PATEL [facility]06-29-2025 Note* Exam Date Time Procedure Performing Provider Status 11/24/24 4:05 AM EKG [ED AOH] - CIRILO ROY DO ; Auth (Verified) ECG Final Report Atrial fibrillation Markedly posterior QRS axis Anteroseptal infarct, old Minimal ST depression, lateral leads Baseline wander in lead(s) II,aVR Compared to ECG at 10/16/2024 22:24:26 ABNORMAL ECG Electronic Signature: CIRILO PATEL DO 11/24/2024 04:10:26 [facility]05-28-2025 Hospital Discharge instructions Patient Education 10/23/2024 17:07:48 [...] your health care provider approves. Standard walker 1.tumblers supervisor your walker. Do not slide your [...] 05/15/2006 Document Revised: 04/10/2019 Document Reviewed: 04/10/2019 Cytoo Patient Education 2020 [employer]. 10/23/2024 17:07:24 How to Care for [...] with a waterproof covering. General instructions Take tzyx-quk-zsuybaa and prescription medicines only as told by [...] Document Reviewed: 07/15/2019 Elsevier Patient Education 2020 [employer]. Follow Up Care 10/16/2024 16:12:44 With:[facility], skilled, Address:Unknown When:1-2 days With:GIRMA CORREA Address: [address] [facility] [place] [phone] Business (1) When:1-2 days With:NANI QUINTANA DO, Orthopedic Address: [address] [facility], [place] [phone] When:3-7 days Comments:Please call office SARA to confirm/verify follow up appointment. [facility] 05-28-2025 Note Discharge Instructions Thank you for [...] Up 11/08/2024 02:30 PM EDT EDY WEBER [facility] CV Confirmed PC OV 11/12/2024 03:30 PM EDT GIRMA CORREA [facility] Confirmed Follow Up Appointments Follow Up with [facility], [facility], When:Within 1-2 days Follow Up with GIRMA CORREA When:Within 1-2 days Where:[address] [place] [address]- [phone] Business (1) Follow Up with NANI QUINTANA DO, Orthopedic When:Within 3-7 days Where:[address] [facility], [place] [phone] Additional Information: Please call office SARA to [...] 7 Days Pickup at [facility]/pharmacy #[id number] Unchanged albuterol (albuterol 2.5 mg/ 3 mL [...] mouth Daily at bedtime Pharmacy Information [id number]: [address], [place] [phone] Please take this list to your next [...] may report side effects to FDA at 9-204-SZD-1062. What other drugs will affect acetaminophen and [...] affect acetaminophen and oxycodone, including prescription and yvyn-bus-msisxpj medicines, vitamins, and herbal products. Not all [...] to ensure that the information provided by [employer]. ('[employer]') is accurate, up-to-date, and complete, but no guarantee is made to that effect. Drug information contained herein may be time sensitive. Sounder information has been compiled for use by healthcare practitioners and consumers in the [place] and therefore Sounder does not warrant that uses outside of the [place] are appropriate, unless specifically indicated otherwise. Sounder's drug information does not endorse drugs, diagnose patients or recommend therapy. TeePee Gamess drug information isan informational resource designed to [...] effective or appropriate for any given patient. [facility] does not assume any responsibility for any aspect of healthcare administered with the aid of information [facility] provides. The information contained herein is not intended to cover all possible uses, directions, precautions, warnings, drug interactions, allergic reactions, or adverse effects. If you have questions about the drugs you are taking, check with your doctor, nurse or pharmacist. Copyright 9299-3825 [facility] Center[facility] [employer]. Version: 22.. Revision Date: 12/29/2022. Education Materials [...] health care provider approves. Standard walker 1. tumblers supervisor your walker. Do not slide your [...] 05/15/2006 Document Revised: 04/10/2019 Document Reviewed: 04/10/2019 Cytoo Patient Education 2020 [employer]. How to Care for an External [...] with a waterproof covering. General instructions Take smyr-kpi-iucbrep and prescription medicines only as told by [...] 01/25/2012 Document Revised: 07/12/2019 Document Reviewed: 07/15/2019 ElseStandardized Safety Patient Education 2020 Cytoo Inc. Additional Information VACCINATE! IT SAVES LIVES! Members of the community who have not yet received the COVID-19 vaccine and would like to receive it can visit one of [facility] vaccine clinics. There are many vaccine clinic locations within the [facility]. For locations and available times, please visit https://[email or web address].[place].gov/. It is important to note that some COVID mobile vaccine clinics are held outdoors and may be canceled in rainy or stormy conditions. To learn more about pediatric vaccinations (ages 5-11), we invite you to visit the [facility] webpage. https://www.[email or web address].org/pages/3147-Vuzgf-Kowllwiomgj-Ecyrpktrzj-Aasyb-Gqj stions.htmlTo learn more about the COVID-19 vaccine, we invite you to visit the CDC website for a list of frequently asked questions.https://www.cdc.gov/coronavirus/2019-ncov/vaccines/faq.html [facility] Patient Portal Access Instructions: Stay connected with your healthcare team and access your personal medical information anytime with the [facility] Patient Portal. Please follow the directions below to create your [facility] account: 1.Access the email account you provided upon registration to the hospital/physician office.2.Look for an invitation email from [facility].3.Open the email and access the invitation link: AcceptInvitation to [facility].4.Fill in the required orr to create your account. To access your account, visit [employer] MobileOneChart. Click the blue button labeled "Access Patient Portal" and then log in with the username and password that you created in the steps above. You will be able to view your test results, lab results, a summary of your visits, upcoming appointments and more. There is also a convenient messaging option where you can send secure messages to your p CREDANT Technologiesvider. In addition, you will have the ability to download any documents or summaries to your computer and/or send the information securely to a physician. Remember that your healthcare information is confidential, so carefully consider who you will allowto register on the [facility] Patient Portal for access to your information. You can also access the [facility] Patient Portal on the [employer]where frida. Simply click on "Patient Portal" and then log into your account. If you would like to receive a full copy of your medical records, please contact the [facility] Medical Records Department by calling [phone], Monday through Monday between 8 a.m. and [...] Call your local pharmacy or go to [email or web address] to find one close to you.3.Make use of household items: Use cat litter or old coffee grounds to dispose medications if other options arenot available. Mix your drugs with these household products, seal them in an airtight container andthrow it into the garbage. Call [facility]: [phone] to be sure your drugs can be [...] aware that I should contact my doctor. Patient/Conveyor System Dispatcher Signature: Date/Time: Relationship to Patient: Witness Name/Signature: Date/Time: [facility] CenterCjhvrnjc06-01-9447 Note Discharge Instructions Thank you for allowing [...] Up 11/08/2024 02:30 PM EDT EDY WEBER [facility] Confirmed OV 11/12/2024 03:30 PM EDT GIRMA CORREA APRN-SHAWN [facility] Confirmed Follow Up Appointments Follow Up with [facility], skilled, When:Within 1-2 days Follow Up with GIRMA CORREA When:Within 1-2 days Where:[address] [facility] [place] [phone] Business (1) Follow Up with NANI QUINTANA DO, Orthopedic When:Within 3-7 days Where:[address] [facility], [place] [phone] Additional Information: Please call office SARA to [...] 7 Days Pickup at [facility]/pharmacy #[id number] Unchanged albuterol (albuterol 2.5 mg/ 3 mL [...] Information [facility]/pharmacy #[id number]: [address], [place] [phone] Please take this list to your next [...] to receive it can visit one of [facility] vaccine clinics. There are many vaccine clinic locations within the [facility]. For locations and available times, please visit [email or web address].gov/. It is important to note that some COVID mobile vaccine clinics are held outdoors and may be canceled in rainy or stormy conditions. To learn more about pediatric vaccinations (ages 5-11), we invite you to visit the [facility] webpage. https://www.[facility].org/pages/6055-Syxhy-Ptsmpcqzcer-Pcnyyzases-Zjrnn-Eqn stions.htmlTo learn more about the COVID-19 vaccine, we invite you to visit the CDC website for a list of frequently asked questions.https://www.cdc.gov/coronavirus/2019-ncov/vaccines/faq.html [facility] Patient Portal Access Instructions: Stay connected with your healthcare team and access your personal medical information anytime with the [facility] Patient Portal. Please follow the directions below to create your [facility] account: 1.Access the email account you provided upon registration to the hospital/physician office.2.Look for an invitation email from [facility].3.Open the email and access the invitation link: AcceptInvitation to [facility].4.Fill in the required orr to create your account. To access your account, visit [email or web address]. Click the blue button labeled "Access Patient [...] who you will allowto register on the [facility] Patient Portal for access to your information. You can also access the [facility] Patient Portal on the [facility] Optechwhere frida. Simply click on "Patient Portal" and then log into your account. If you would like to receive a full copy of your medical records, please contact the [facility] Medical Records Department by calling [phone], Monday through Monday between 8 a.m. and [...] Call your local pharmacy or go to http://bit.ly/4Z1Bh8m to find one close to you.3.Make use of household items: Use cat litter or old coffee grounds to dispose medications if other options arenot available. Mix your drugs with these household products, seal them in an airtight container andthrow it into the garbage. Call [facility]: [phone] to be sure your drugs can be [...] aware that I should contact my doctor. Patient/Conveyor System Dispatcher Signature: Date/Time: Relationship to Patient: Witness Name/Signature: Date/Time: [facility] CenterRxewilig09-20-4169 Orthopaedic surgery Progress note Date of Service [...] obturator, femoral, LCN, DPN, SPN, sural, saphenous, M/HOP STRAINER - Calf soft and non-tender Left Lower Extremity - No pain to left lower extremity. Walking boot in place when patient is ambulating - Motor: Hip flexion/extension, quadriceps, hamstrings, gastruc/soleus, EHL/FHL intact. - DP and PT pulse 2+. Foot warm and perfused. BCR - Sensation grossly intact L2-S2: obturator, femoral, LCN, DPN, SPN, sural, saphenous, M/HOP STRAINER - Calf soft and non-tender Weight Dosing [...] SUZE MISHRA DO on 10/23/2024 07:03 AM [facility] CenterSvhkwtgd77-22-6699 Orthopaedic surgery Progress note Date of Service [...] obturator, femoral, LCN, DPN, SPN, sural, saphenous, M/HOP STRAINER - Calf soft and non-tender Left Lower Extremity - No pain to left lower extremity. Walking boot in place when patient is ambulating - Motor: Hip flexion/extension, quadriceps, hamstrings, gastruc/soleus, EHL/FHL intact. - DP and PT pulse 2+. Foot warm and perfused. BCR - Sensation grossly intact L2-S2: obturator, femoral, LCN, DPN, SPN, sural, saphenous, M/HOP STRAINER - Calf soft and non-tender Weight Dosing [...] SUZE MISHRA DO on 10/23/2024 07:03 AM [facility] CenterZmsjgowq99-97-7883 Orthopaedic surgery Progress note Date of Service [...] obturator, femoral, LCN, DPN, SPN, sural, saphenous, M/HOP STRAINER - Calf soft and non-tender Left Lower Extremity - No pain to left lower extremity. Walking boot in place when patient is ambulating - Motor: Hip flexion/extension, quadriceps, hamstrings, gastruc/soleus, EHL/FHL intact. - DP and PT pulse 2+. Foot warm and perfused. BCR - Sensation grossly intact L2-S2: obturator, femoral, LCN, DPN, SPN, sural, saphenous, M/HOP STRAINER - Calf soft and non-tender Weight Dosing [...] SUZE MISHRA DO on 10/22/2024 05:51 AM [facility] CenterMdtzxknf93-35-6688 Orthopaedic surgery Progress note Date of Service [...] obturator, femoral, LCN, DPN, SPN, sural, saphenous, M/HOP STRAINER - Calf soft and non-tender Left Lower Extremity - No pain to left lower extremity. Walking boot in place when patient is ambulating - Motor: Hip flexion/extension, quadriceps, hamstrings, gastruc/soleus, EHL/FHL intact. - DP and PT pulse 2+. Foot warm and perfused. BCR - Sensation grossly intact L2-S2: obturator, femoral, LCN, DPN, SPN, sural, saphenous, M/HOP STRAINER - Calf soft and non-tender Weight Dosing [...] SUZE MISHRA DO on 10/22/2024 05:51 AM [facility] CenterNvfmolot07-51-6403 Orthopaedic surgery Progress note Date of Service [...] SANDRA GARCIA DO on 10/21/2024 10:00 AM [facility] CenterNtkupjsd73-74-5485 Orthopaedic surgery Progress note Date of Service [...] SANDRA GARCIA DO on 10/21/2024 10:00 AM [facility] CenterGagadxly46-78-9033 Pastoral care Progress note Pastoral Care Note [...] by Sanjay Lucas on 10/18/2024 04:50 PM [facility] CenterLzouujhc16-18-8027 Note PIN care completed by bedside RN. Ortho approved protocol orders for care daily. Digitally Signed by SHAHEEN Lou on 10/18/2024 01:37 PM [facility] CenterNsptibfe79-94-5442 Note Date of Service 10/18/2024 Chief Complaint [...] by GROVER HOFFMAN on 10/18/2024 01:11 PM [facility] CenterUrooifbz73-84-2011 Note* Exam Date Time Procedure Performing Provider Status 10/17/24 1:14 PM XR Fluoro 1-2 Hrs Tech Time KAILEY WAHL DO; Auth (Verified) [id number] ORIGINAL EXAMINATION: FLUORO MD - > 1 HR TECHNIQUE: Total fluoro time is 43.2 seconds. Total exposure is 2.0531 mGy. COMPARISON: CT ankle 10/17/2024, x-ray ankle 10/16/2024. HISTORY: ORDERING SYSTEM PROVIDED HISTORY: Reason for Exam: RIGHT ANKLE FX FINDINGS: Intraoperative fluoroscopic images from external surgical fixation of a distal fibular fracture. IMPRESSION: Intraoperative fluoroscopic images. Please refer to the jointer machine operator's report for further information. I have personally reviewed the images of this examination and agree with the resident's findings and interpretation. Interpreted by: Beau Wahl Preliminary Report By: Nadya Hudson Electronically signed By Beau Wahl Dictated Date: 10/17/2024 1:42:02 PM Prelim Date: 10/17/2024 2:15:08 PM Sign Date: 10/17/2024 2:15:08 PM Ordering Provider: NANI QUINTANA [facility] CenterEwrlompo53-86-9561 Note Date of Service 10/17/2024 Chief Complaint Medical management Subjective This 54-year-old white male with a past medical history of type 2 diabetes mellitus, hypertension, COPD, HFpEF, anxiety, atrial fibrillation on Xarelto and Tikosyn [facility] aftermechanical fall and subsequent ankle [...] by GROVER HOFFMAN on 10/17/2024 12:52 PM [facility] CenterFqnfapmi24-99-2432 Anesthesiology Consult note Patient: CARLOS ALBERTO KELLEY [...] CHANTAL WHEATLEY DO on 10/17/2024 11:13 AM [facility] CenterStivzogt71-15-9426 Note* Exam Date Time Procedure Performing Provider Status 10/17/24 10:[address] Ankle w/o Contrast Right KATHY REVELES MD; Auth (Verified) [id number] ORIGINAL EXAMINATION: CT OF THE RIGHT ANKLE [...] spanning external fixator, multiplanar [facility]. [...] 10/17/2024 1:17:29 PM Ordering Provider: SUZE MISHRA [facility] CenterWcnflwzy73-40-9179 History and physical note Date of Service 10/16/2024 Chief Complaint Pt here from [facility] via squad after a mechanical fall causing a fracture to his right ankle. They splinted it in their ED and sent to [facility] for surgical consult. History of Present Illness Patient is a 54-year-old male who presents to the [facility] emergency department as a transfer from [facility] for his right ankle fracture. Patient reports [...] Blood, q24h, for 5 day(s), Preferred Lab: [facility], Stop date 10/20/24 22:00:00 EDT Bedrest, 10/16/24 [...] Blood, q24h, for 5 day(s), Preferred Lab: [facility], Stop date 10/20/24 22:00:00 EDT Complete Metabolic Panel(CMP), 10/16/24 21:21:00 EDT, URGENT (collect within 2 hrs), Blood, Once, Nurse Collect, Preferred Lab: [facility], Stop date 10/16/24 21:37:00 EDT Consult to Physician, 10/16/24 21:21:00 EDT, HOSPITALISTLARRY (For Consultation Assignment OnlyNO other Orders), Routine, medical clearance, follow medically Diet Order, 10/16/24 21:21:00 EDT, Start Meal: Next meal, Regular, Constant Order, : N/A, : N/A Electrocardiogram(EKG), 10/16/24 21:21:00 EDT, Complete by Nursing Incentive Spirometer, 10/16/24 21:21:00 EDT, n2kVZ-TO Intake and Output, 10/16/24 21:21:00 EDT, q8h (2p, 10p, 6a) IV Catheter Insertion/Care(Peripheral IV Insertion/Care), 10/16/24 21:21:00 EDT, IV Care: Once, 18 gauge angiocath, if possible Pulse Oximeter - Intermittent, 10/16/24 21:21:00 EDT, AsDirected, PRN order, On admission and as indicated Type and Screen, 10/16/24 21:21:00 EDT, URGENT (collect within 2 hrs), Blood, Once, Nurse Collect, [facility], Stop date 10/16/24 21:21:00 EDT Vital Signs, [...] RIC ARELLANO DO on 10/16/2024 09:43 PM [facility] CenterCgkznkhc34-78-4531 Anesthesiology Consult note Patient: CARLOS ALBERTO KELLEY [...] list: Medical Asthma exacerbation / SNOMED CT 3317581405 / Confirmed COPD exacerbation / SNOMED CT 1169092123 / Confirmed Atopic dermatitis / SNOMED CT 20636696 / Confirmed Atypical chest pain / SNOMED CT 474089037 / Confirmed Morbid obesity with BMI of 40.0-44.9, adult / SNOMED CT 0173822112 / Confirmed Bronchitis / SNOMED CT 59487722 / Confirmed Cardiomyopathy / SNOMED CT 484020029 / Confirmed CHF with cardiomyopathy / SNOMED CT 33084216 / Confirmed Cough / SNOMED CT 08509231 / Confirmed Dental abscess / SNOMED CT 954889970 / Confirmed Depression / SNOMED CT 93319251 / Confirmed Dyspnea / SNOMED CT 467774921 / Confirmed Generalized anxiety disorder / SNOMED CT 98552123 / Confirmed Hypertension associated with type 2 diabetes mellitus / SNOMED CT 8643077102 / Confirmed Insomnia / SNOMED CT 754074585 / Confirmed LVH (left ventricular hypertrophy) / SNOMED CT 95617463 / Confirmed Moderate asthma / SNOMED CT 1808197969 / Confirmed Near syncope / SNOMED CT 5697408169 / Confirmed Chewing tobacco nicotine dependence / SNOMED CT 35336442 / Confirmed KOFFI (obstructive sleep apnea) / SNOMED CT 361806799 / Confirmed Right knee pain / SNOMED CT 3486953631 / Confirmed Paroxysmal atrial fibrillation / SNOMED CT 918594321 / Confirmed Screening for ischemic heart disease / SNOMED CT 109280930 / Confirmed Screening for colon cancer / SNOMED CT 672153243 / Confirmed Statin intolerance / SNOMED CT 3488601856 / Confirmed Tachyarrhythmia / SNOMED CT 52260754 / Confirmed Type 2 diabetes mellitus with hemoglobin A1c goal of less than 7.0% / SNOMED CT 373715704 / Confirmed Type 2 diabetes mellitus with hyperlipidemia / SNOMED CT 646146472 / Confirmed, Active Problems (32) Asthma exacerbation [...] Histories Past Medical History: Resolved Morbid obesity (084720255): Resolved. Diabetes mellitus (175999490): Resolved. Hypertension (9829615069): Resolved. BMI 45.0-49.9, adult (4378516419): Resolved. Anxiety (37879589): Resolved. Prediabetes (1004749531): Resolved. Obstructive sleep apnea (430349671): Resolved. Right flank pain (194749271): Resolved. Hyperlipidemia (04477718): Resolved. Mass of arm (110362116): Resolved. Family History: Cancer Father Heart disease Mother Grandparent Stroke Father Procedure history: Excision (079900594) on 03/25/2024 at 53 Years. 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 Cardioversion (791536674) on 12/23/2022 at 52 Years. Echocardiogram (4458771683) on 11/11/2022 at 52 Years. Comments: 03/20/2023 [...] right atrial pressure is 15 mm Hg [facility] (6260510838). Comments: 07/11/2022 8:26 CRISTINO - Bharath, SHAHEEN [...] Temp Oral36.7 DegC (OCTOBER 17:12) Heart Rate Oawtzbtmq50 bpm (OCTOBER 17 00:00) SLC169 mmHg (OCTOBER 17:12) DBP82 mmHg (OCTOBER 17:12) BMI44.92 (OCTOBER 17:29) Measurements from flowsheet : Measurements 10/17/2024 1:29 EDT Height 177.8 cm Height in inches 70 inch(es) Admission Weight 142 kg Weight Lbs 312.4 lb [place] Body Weight 73.00 kg Type of Scale [...] PRN medication effectiveness Partial Nail Bed Color [place] Capillary Refill < 2 seconds Dorsalis Pedis Pulse, Left 2+ Normal Radial Pulse, Left 2+ Normal Radial Pulse, Right 2+ Normal Respirations Unlabored Respiratory Pattern Regular All Lobes Breath Sounds Clear Abdomen Description Non-distended, Rounded Abdomen Palpation Non-Tender Passing Flatus Yes Bowel Sounds All Quadrants Present Skin Description [place], Dry Skin Temperature Warm Skin Integrity Pressure points intact Skin Turgor Elastic All Extremity Description [place], Normal for ethnicity Temperature All Extremities Warm Mucous Membrane Color [place] Mucous Membrane Description Moist Ankle Right Incision, Wound Dressing/Activity: Assessed Incision, Wound Dressing: Elastic wrap bandage Wound Associated Pain: With activity, mobilization Buttock Inferior, Inner Skin Abnormality Type: Non-pressure ulcer Skin Abnormality Color: [place], Red Incision, Wound Surrounding Tissue: Normal skin [...] EDT Designated Person #1 We May Share [facility] MARILYN OSPINA [phone] Designated Person #1 Relationship Sibling Designated Person #2 We May Share [facility] Designated Person #2 We May Share [facility] Privacy Restrictions Requested None Height 177.8 cm Height in inches 70 inch(es) Admission Weight 142 kg Weight Lbs 312.4 lb [place] Body Weight 73.00 kg Type of Scale [...] evident Teaching Method Explanation Preferred Spoken Language Georgian Preferred Written Language Georgian Disease Process General Education Signs/Symptoms to report, [...] 10/16/2024 16:28 EDT Status N/A [facility] Screen 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 They splinted it in their ED and sent to [facility] for surgical consult. Place Where Injury/Illness Occurred Other: [facility] Anticoagulants Taken In Past 6 Wks. No [...] Non-distended, Symmetric Abdomen Palpation Non-Tender Skin Description [place], Normal for ethnicity, Dry Skin Temperature Warm Mucous Membrane Color [place] Mucous Membrane Description Moist Neurological Symptoms Patient denies Level of Consciousness Alert Eye Opening Response [place] Spontaneously Best Motor Response Luis Felipe Obeys simple commands Best Verbal Response [place] Oriented Luis Felipe Coma Score 15 CLARA [...] No Weight Loss No Preferred Spoken Language Georgian Preferred Written Language Georgian Tracking Group ED Tracking Group Tracking Acuity 3 ED Diabetic Patient No Mode of Transfer Ground ambulance Ambulance Service [facility] Positioning Repositions self Standard [...] ED Triage Adults . Assessment and Plan [place] [employer] Anesthesiologists (ASA) physical status classification: [...] by DELORES BRAVO on 10/17/2024 07:17 AM [id number] Note Date of Service October 16, 2024 [...] KARLENE BARCENAS DO on 10/16/2024 10:38 PM [facility] [id number] Note* Exam Date Time Procedure Performing Provider Status 10/16/24 10:24 PM Electrocardiogram - EKG - CV SA SULY PAULINO MD; Auth (Verified) ECG Final Report SINUS RHYTHM LEFT ANTERIOR FASCICULAR BLOCK LOW VOLTAGE, PRECORDIAL LEADS Electronic Signature: ALIZA PAULINO MD 10/17/2024 18:58:09 [facility] [id number] Note* Exam Date Time Procedure Performing Provider Status 10/16/24 10:07 PM XR Ankle Minimum 3 Views Left TRACE ROUSE MD; Auth (Verified) [id number] ORIGINAL EXAMINATION: THREE XRAY VIEWS OF THE [...] 10/16/2024 10:39:42 PM Ordering Provider: RIC ARELLANO [facility] [id number] History and physical note Date of Service 10/16/2024 Chief Complaint Pt here from [facility] via squad after a mechanical fall causing a fracture to his right ankle. They splinted it in their ED and sent to [facility] for surgical consult. History of Present Illness Patient is a 54-year-old male who presents to the [facility] emergency department as a transfer from [facility] for his right ankle fracture. Patient reports [...] Blood, q24h, for 5 day(s), Preferred Lab: [facility], Stop date 10/20/24 22:00:00 EDT Bedrest, 10/16/24:21:00 [...] Blood, q24h, for 5 day(s), Preferred Lab: [facility], Stop date 10/20/24 22:00:00 EDT Complete Metabolic Panel(CMP), 10/16/24:21:00 EDT, URGENT (collect within 2 hrs), Blood, Once, Nurse Collect, Preferred Lab: [facility], Stop date 10/16/24 21:37:00 EDT Consult to Physician, 10/16/24:21:00 EDT, HOSPITALISTLARRY (For Consultation Assignment OnlyNO other Orders), Routine, medical clearance, follow medically Diet Order, 10/16/24 21:21:00 EDT, Start Meal: Next meal, Regular, Constant Order, : N/A, : N/A Electrocardiogram(EKG), 10/16/24 21:21:00 EDT, Complete by Nursing Incentive Spirometer, 10/16/24 21:21:00 EDT, [id number] Intake and Output, 10/16/24 21:21:00 EDT, q8h (2p, 10p, 6a) IV Catheter Insertion/Care(Peripheral IV Insertion/Care), 10/16/24 21:21:00 EDT, IV Care: Once, 18 gauge angiocath, if possible Pulse Oximeter - Intermittent, 10/16/24 21:21:00 EDT, AsDirected, PRN order, On admission and as indicated Type and Screen, 10/16/24 21:21:00 EDT, URGENT (collect within 2 hrs), Blood, Once, Nurse Collect, Preferred Lab: [facility], Stop date 10/16/24 21:21:00 EDT Vital Signs, [...] RIC ARELLANO DO on 10/16/2024 09:43 PM [facility] [id number] Note* Exam Date Time Procedure Performing Provider Status 10/16/24 8:42 PM XR Ankle Minimum 3 Views Right TRACE ROUSE MD; Auth (Verified) [id number] ORIGINAL EXAMINATION: THREE XRAY VIEWS OF THE [...] Sign Date: 10/16/2024 9:20:54 PM Ordering Provider: RCI ARELLANO [facility] [id number] Note* Exam Date Time Procedure Performing Provider Status 10/16/24 7:09 PM XR Ankle Minimum 3 Views Right TRACE ROUSE MD; Auth (Verified) [id number] ORIGINAL EXAMINATION: THREE XRAY VIEWS OF THE [...] 10/16/2024 7:53:07 PM Ordering Provider: EM GARCIA [facility] [id number] Note* Exam Date Time Procedure Performing Provider Status 10/16/24 5:43 PM XR Ankle Minimum 3 Views Right TRACE ROUSE MD; Auth (Verified) [id number] ORIGINAL EXAMINATION: THREE XRAY VIEWS OF THE [...] Sign Date: 10/16/2024 6:28:12 PM Ordering Provider: [facility]05-21-2025 Evaluation + Plan noteExtracted from: Title:Ortho History [...] Blood, q24h, for 5 day(s), Preferred Lab: [facility], Stop date 10/20/24 22:00:00 EDT Bedrest, 10/16/24 [...] Blood, q24h, for 5 day(s), [facility], Stop date 10/20/24 22:00:00 EDT Complete Metabolic Panel(CMP), 10/16/24:21:00 EDT, URGENT (collect within 2 hrs), Blood, Once, Nurse Collect, Preferred Lab: [facility], Stop date 10/16/24 21:37:00 EDT Consult to Physician, 10/16/24 21:21:00 EDT, HOSPITALISTLARRY (For Consultation Assignment Only NO other Orders), Routine, medical clearance, follow medically Diet Order, 10/16/24 21:21:00 EDT, Start Meal: Next meal, Regular, Constant Order, : N/A, : N/A Electrocardiogram(EKG), 10/16/24 21:21:00 EDT, Complete by Nursing Incentive Spirometer, 10/16/24 21:21:00 EDT, [id number] Intake and Output, 10/16/24 21:21:00 EDT, q8h (2p, 10p, 6a) IV Catheter Insertion/Care(Peripheral IV Insertion/Care), 10/16/24 21:21:00 EDT, IV Care: Once, 18 gauge angiocath, if possible Pulse Oximeter - Intermittent, 10/16/24 21:21:00 EDT, AsDirected, PRN order, On admission and as indicated Type and Screen, 10/16/24 21:21:00 EDT, URGENT (collect within 2 hrs), Blood, Once, Nurse Collect, Preferred Lab: [facility], Stop date 10/16/24 21:21:00 EDT Vital Signs, [...] Appointment Date:11/08/2024 02:30:00 PM Scheduled Provider:EDY WEBER Location:[facility] Appointment Type:[facility] Hospital Follow Up Appointment Date:11/12/2024 03:30:00 PM Scheduled Provider:GIRMA CORREA Location:[facility] Appointment Type:[facility] Future Scheduled Tests Laboratory* Basic Metabolic Panel 02/07/24 * Basic Metabolic Panel 12/10/24 * Basic Metabolic Panel 02/19/24 * Magnesium Level 02/07/24 * Complete Blood Count 08/27/24 * Complete Metabolic Panel 08/27/24 * N-Terminal proBNP 08/27/24 [facility] 05-09-2025 Hospital Discharge instructions Patient [...] Slowly return to your usual activities. Take zwyr-njr-pseikhm and prescription medicines only as told by [...] 02/07/2002 Document Revised: 10/15/2018 Document Reviewed: 10/15/2018 [employer] Patient Education 2020 [employer]. 10/04/2024 21:03:30 Pursed Lip Breathing Pursed Lip [...] exercise. Follow these instructions at home: Take phes-ayb-gyvgtgk and prescription medicines only as told by [...] 02/21/2009 Document Revised: 04/27/2018 Document Reviewed: 04/06/2017 [employer] Patient Education 2020 [employer]. 10/04/2024 21:03:27 Cough, Adult Cough, Adult Coughing [...] Follow these instructions at home: Medicines Take pbxi-cxp-kmjhgxx and prescription medicines only as told by [...] of a condition that needs treatment. Take saoa-tcn-zxxcgiy and prescription medicines only as told by [...] 11/11/2011 Document Revised: 06/03/2019 Document Reviewed: 06/03/2019 ElseStandardized Safety Patient Education 2020 [employer] Follow Up Care 10/02/2024 02:08:49 With:readmission score is 13 Address:Unknown When: Unknown With:GIRMA CORREA Address: [address] [place] [phone] Business (1) When:1-2 days [facility] 05-09-2025 Note Discharge Instructions Thank you for allowing [facility] to assist you with your healthcare needs. The following is importantdischarge information regarding your hospital visit. Your Care Team GIRMA CORREA Your Diagnosis Shortness of breath What to do next Scheduled Follow-Up Appointments Appointment Type When With Where Contact Information StatusPC OV 10/23/2024 04:00 PM EDT GIRMA CORREA [facility] [phone] Confirmed CV OV Hospital Follow [facility] 11/08[facility]2024 02:[facility] Follow Up with readmission score is 13 Follow Up with GIRMA CORREA When:Within 1-2 days Where:[address] [place], [place] [id number]- [phone] Business (1) The Following Activity and Diet [...] days after discharge, please call [facility] at [phone]. Post Acute Orders No qualifying data available. [...] with food Pickup at [facility]/pharmacy #[id number] Unchanged acetaminophen (Tylenol) by mouth As [...] Information [facility]/pharmacy #[id number]: [address], [place] [phone] Please take this list to your next [...] may report side effects to FDA at 9-084-YIS-9036. What other drugs will affect hydroxyzine? Taking [...] may interact with hydroxyzine, including prescription and qdxg-iin-kvsjxwe medicines, vitamins, and herbal products. Not all [...] to ensure that the information provided by [employer]. ('Mult[employer]') is accurate, up-to-date, and complete, but no guarantee is made to that effect. Drug information contained herein may be time sensitive. [employer]ounder information has been compiled for use by healthcare practitioners and consumers in the [place] and therefore S[employer] does not warrant that uses outside of the [place] are appropriate, unless specifically indicated otherwise. [employer] drug information does not endorse drugs, diagnose patients or recommend therapy. [employer] drug information isan informational resource designed to [...] effective or appropriate for any given patient. S[employer] does not assume any responsibility for any aspect of healthcare administered with the aid of information [employer] provides. The information contained herein is not intended to cover all possible uses, directions, precautions, warnings, drug interactions, allergic reactions, or adverse effects. If you have questions about the drugs you are taking, check with your doctor, nurse or pharmacist. Copyright 5036-9591 [employer]. Version: 8.01. Revision Date: 08/10/2016. furosemide (oral/injection) [...] wireless accessories such as remote control, or BlueRecombineoth devices. Do not reuse a needle, syringe [...] blood pressure, such as diet pills or ktgnx-yvw-bbas medicine. What are the possible side effects [...] may report side effects to FDA at 4-291-EQW-9759. What other drugs will affect furosemide? Sometimes [...] drugs may affect furosemide, including prescription and zkji-jcd-bmpgtaa medicines, vitamins, and herbal products. Not all [...] to ensure that the information provided by [employer]. ('[employer]') is accurate, up-to-date, and complete, but no guarantee is made to that effect. Drug information contained herein may be time sensitive. Sounder information has been compiled for use by healthcare practitioners and consumers in the [place] and therefore Sounder does not warrant that uses outside of the [place] are appropriate, unless specifically indicated otherwise. Sounder's drug information does not endorse drugs, diagnose patients or recommend therapy. [facility]PageTodays drug information isan informational resource designed to [...] effective or appropriate for any given patient. [facility] does not assume any responsibility for any aspect of healthcare administered with the aid of information [facility] provides. The information contained herein is not intended to cover all possible uses, directions, precautions, warnings, drug interactions, allergic reactions, or adverse effects. If you have questions about the drugs you are taking, check with your doctor, nurse or pharmacist. Copyright 4081-6344 [facility] [employer]. Version: . Revision Date: 11/07/2023. cetirizine (oral/injection) [...] may report side effects to FDA at 7-226-DEP-8795. What other drugs will affect cetirizine? Using cetirizine with other drugs that make you drowsy can worsen this effect. Ask your doctor before using opioid medication, a sleeping pill, a muscle relaxer, or medicine for anxiety or seizures. Other drugs may affect cetirizine, including prescription and lrlr-lof-imsvxtf medicines, vitamins,and herbal products. Tell your doctor [...] to ensure that the information provided by [employer]. ('[employer]um') is accurate, up-to-date, and complete, but no guarantee is made to that effect. Drug information contained herein may be time sensitive. Sounder information has been compiled for use by healthcare practitioners and consumers in the [place] and therefore Sounder does not warrant that uses outside of the [place] are appropriate, unless specifically indicated otherwise. [employer] drug information does not endorse drugs, diagnose patients or recommend therapy. [employer] drug information isan informational resource designed to [...] effective or appropriate for any given patient. [employer] does not assume any responsibility for any aspect of healthcare administered with the aid of information Sounder provides. The information contained herein is not intended to cover all possible uses, directions, precautions, warnings, drug interactions, allergic reactions, or adverse effects. If you have questions about the drugs you are taking, check with your doctor, nurse or pharmacist. Copyright 5018-2891 [employer]. Version: 13.. Revision Date: 11/16/2022. dofetilide (mathias [...] may report side effects to FDA at 3-282-NOR-2679. What other drugs will affect dofetilide? Other drugs may interact with dofetilide, including prescription and pqim-nxb-akyrgdh medicines, vitamins, and herbal products. Tell each [...] to ensure that the information provided by [employer]. ('Multum') is accurate, up-to-date, and complete, but no guarantee is made to that effect. Drug information contained herein may be time sensitive. Sounder information has been compiled for use by healthcare practitioners and consumers in the [place] and therefore Sounder does not warrant that uses outside of the [place] are appropriate, unless specifically indicated otherwise. [employer] drug information does not endorse drugs, diagnose patients or recommend therapy. [employer] drug information isan informational resource designed to [...] effective or appropriate for any given patient. Sounder does not assume any responsibility for any aspect of healthcare administered with the aid of information [facility] [employer] provides. The information contained herein is not intended to cover all possible uses, directions, precautions, warnings, drug interactions, allergic reactions, or adverse effects. If you have questions about the drugs you are taking, check with your doctor, nurse or pharmacist. Copyright 4212-9806 [employer]. Version: 4.01. Revision Date: 09/09/2015. allopurinol (oral/injection) [...] and call your (more content not included)... [facility] [id number] Pastoral care Progress note Pastoral Care Note [...] by Sanjay Lucas on 10/04/2024 04:16 PM [facility] CenterNbtxdxxn60-72-8585 Discharge summary Date of Service 10/04/2024 Discharge [...] 1-2 days Where:[address] [place] [phone] Business (1) Follow Up Appointments No qualifying data available. Follow Up Labs/Studies Discharge Labs No Follow-up Labs Discharge Studies No Follow-up Studies Discharge Diet No qualifying data available. Discharge Activity No qualifying data available. Readmission Risk/Palliative Score LACE Score: 13 (10/02/24 10:21:00) Palliative Total Score: 1 (10/02/24 10:21:00) Digitally Signed by DUSTIN RICHARD MD on 10/04/2024 12:27 PM [facility] CenterBzciwmms00-64-3071 Discharge summary Date of Service 10/04/2024 Discharge [...] When:Within 1-2 days Where:[address] [facility] [place] [phone] Business (1) Follow Up Appointments No qualifying data available. Follow Up Labs/Studies Discharge Labs No Follow-up Labs Discharge Studies No Follow-up Studies Discharge Diet No qualifying data available. Discharge Activity No qualifying data available. Readmission Risk/Palliative Score LACE Score: 13 (10/02/24 10:21:00) Palliative Total Score: 1 (10/02/24 10:21:00) Digitally Signed by DUSTIN RICHARD MD on 10/04/2024 12:27 PM [facility] [id number] Cardiology Progress note Date of Service 10/03/2024 [...] DUSTIN RICHARD MD on 10/03/2024 01:50 PM [facility] [id number] Note* Exam Date Time Procedure Performing Provider Status 10/03/24 10:08 PM Electrocardiogram - EKG - CV JOHNIE VELÁZQUEZ MD; Auth (Verified) ECG Final Report SINUS RHYTHM LEFT AXIS DEVIATION LOW VOLTAGE, PRECORDIAL LEADS Electronic Signature: JOHNIE VELÁZQUEZ MD 10/04/2024 21:58:08 [facility] [id number] Note* Exam Date Time Procedure Performing Provider Status 10/03/24 4:01 PM Echocardiogram, Adult - CV ALIZA PAULINO MD; Auth (Verified) [facility] [id number] Cardiology Progress note Date of Service 10/03/2024 [...] DUSTIN RICHARD MD on 10/03/2024 01:50 PM [facility] CenterBfhvohni71-39-2484 Note* Exam Date Time Procedure Performing Provider Status 10/03/24 10:03 AM Electrocardiogram - EKG - CV JOHNIE VELÁZQUEZ MD; Auth (Verified) ECG Final Report SINUS RHYTHM LOW VOLTAGE, PRECORDIAL LEADS CONSIDER ANTERIOR INFARCT Electronic Signature: JOHNIE VELÁZQUEZ MD 10/04/2024 21:57:56 [facility] [id number] Note* Exam Date Time Procedure Performing Provider Status 10/02/24 10:04 PM Electrocardiogram - EKG - CV JOHNIE VELÁZQUEZ MD; Auth (Verified) ECG Final Report SINUS RHYTHM LEFT ANTERIOR FASCICULAR BLOCK PROLONGED QT INTERVAL Electronic Signature: JOHNIE VELÁZQUEZ MD 10/03/2024 19:52:07 [facility] [id number] History and physical note Date of Service [...] mellitus Patient is currently in in [facility] A-fib. Rate is relatively well-controlled. [...] DUSTIN RICHARD MD on 10/02/2024 03:28 PM [facility] CenterLhfbavzg23-60-5755 Note Date of Service October 02, 2024 [...] only), Blood, Once, Nurse Collect, Preferred Lab: [facility], Stop date 10/03/24 5:00:00 EDT Electrocardiogram(EKG), 10/02/24 [...] by MARILUZ BUI on 10/02/2024 02:36 PM [facility] [id number] Note Date of Service October 02, 2024 [...] only), Blood, Once, Nurse Collect, Preferred Lab: [facility], Stop date 10/03/24 5:00:00 EDT Electrocardiogram(EKG), 10/02/24 [...] by MARILUZ BUI on 10/02/2024 02:36 PM [facility] CenterLlimvllv05-64-7457 Evaluation + Plan noteExtracted from: Title:History and [...] mellitus Patient is currently in in [facility]. Rate is relatively well-controlled. Continue Cardizem drip. [...] Appointment Date:10/23/2024 04:00:00 PM Scheduled Provider:GIRMA CORREA Location:[facility] Appointment Type:PC OV Appointment Date:11/08/2024 02:30:00 PM Scheduled Provider:EDY WEBER Location:[facility] Appointment Type:CV Hospital Follow Up Diagnostic Tests Pending * Urinalysis w/ C&S if Indicated 10/02/24 Future Scheduled Tests Laboratory* Basic Metabolic Panel 02/07/24 * Basic Metabolic Panel 12/10/24 * Basic Metabolic Panel 02/19/24 * Magnesium Level 02/07/24 * Complete Blood Count 08/27/24 * Complete Metabolic Panel 08/27/24 * N-Terminal proBNP 08/27/24 [facility] 05-07-2025 Note* Exam Date Time Procedure Performing Provider Status 10/02/24 1:53 PM Electrocardiogram - EKG - CV Brant VELÁZQUEZ MD; Auth (Verified) ECG Final Report SINUS RHYTHM PROBABLE LEFT ATRIAL ENLARGEMENT Left axis deviation Electronic Signature: JOHNIE VELÁZQUEZ MD 10/03/2024 19:51:33 [facility] [id number] History and physical note Date of Service [...] Diabetes mellitus Patient is currently in in [facility]. Rate is relatively well-controlled. Continue Cardizem [...] DUSTIN RICHARD MD on 10/02/2024 03:28 PM [facility] CenterLgjutfam60-50-3374 Respiratory therapy Hospital Progress note Respiratory Therapy [...] by CURTIS Patton on 10/02/2024 11:12 AM [facility] CenterMmmytyir26-47-0750 Note* Exam Date Time Procedure Performing Provider Status 10/02/24 8:23 AM Electrocardiogram - EKG - CV Brant VELÁZQUEZ MD; Auth (Verified) ECG Final Report ATRIAL FIBRILLATION LEFT ANTERIOR FASCICULAR BLOCK Electronic Signature: JOHNIE VELÁZQUEZ MD 10/03/2024 19:51:22 [facility] CenterDpfdklgb44-03-7595 Note* Exam Date Time Procedure Performing Provider Status 10/02/24 6:24 AM Electrocardiogram - EKG - CV Brant VELÁZQUEZ MD; Auth (Verified) ECG Final Report ATRIAL FIBRILLATION WITH RAPID VENTRICULAR RESPONSE Right axis deviation Electronic Signature: JOHNIE VELÁZQUEZ MD 10/03/2024 19:51:11 [facility] CenterEoyztkux32-17-0678 Nurse Progress note bryon Nicole [phone] Digitally Signed by Halley Staples RN on 10/02/2024 04:26 AM [facility]05-07-2025 Nurse Progress note ready bed at main, transport called at 0230 ETA 90 min Digitally Signed by Halley Staples RN on 10/02/2024 04:22 AM [facility]05-07-2025 Nurse Progress note ready bed at main, transport called at 0230 ETA 90 min Digitally Signed by Halley Staples RN on 10/02/2024 04:22 AM [facility]05-07-2025 Note* Exam Date Time Procedure Performing Provider Status 10/02/24 1:43 AM XR Chest 1 View DARNELL MOLINA MD; [facility] (Verified) [id number] ORIGINAL EXAMINATION: ONE XRAY VIEW OF THE [...] 10/02/2024 2:02:33 AM Ordering Provider: DELORES MURO [facility]05-07-2025 Note* Exam Date Time Procedure Performing Provider Status 10/02/24 12:38 AM EKG [ED AOH] - CV DELORES MURO DO; [facility] (Verified) ECG Final Report Atrial fibrillation Inferior infarct, old Probable anteroseptal infarct, old Prolonged QT interval Baseline wander in lead(s) III,V1,V2,V5,V6 Compared to ECG at 08/13/2024 11:03:57 Electronic Signature: DELORES MURO DO 10/02/2024 02:28:42 [facility]10-30-2024 Note The microscopic examination is performed, except in the case of Gross Only. [facility] 10-29-2024 Note The microscopic examination is performed, except in the case of Gross Only. [facility] 10-29-2024 Note The microscopic examination is performed, except in the case of Gross Only. [facility] 10-29-2024 Note The microscopic examination is performed, except in the case of Gross Only. [facility] 10-29-2024 Note The microscopic examination is performed, except in the case of Gross Only. [facility] 10-29-2024 Note The microscopic examination is performed, except in the case of Gross Only. [facility] 10-29-2024 Note The microscopic examination is performed, except in the case of Gross Only. [facility] 09-11-2024 Evaluation + Plan note Future Scheduled Tests Laboratory* Basic Metabolic Panel 02/07/24 * Basic Metabolic Panel 12/10/24 * Basic Metabolic Panel 02/19/24 * Magnesium Level 02/07/24 * Complete Blood Count 08/27/24 * Complete Metabolic Panel 08/27/24 * N-Terminal proBNP 08/27/24 [facility] 09-09-2024 Note. MICRO - Microbiology PROCEDURE: Blood [...] Locations *1: This test was performed at: [facility], [address] [place] [address], [id number]- , [facility]09-09-2024 Note. MICRO - Microbiology PROCEDURE: Blood [...] Locations *1: This test was performed at: [address], [address] [place], [place] [address]-09-2024 Note. MICRO - Microbiology PROCEDURE: Blood Culture [...] Locations *1: This test was performed at: [address], [address] [place], [place] [address]-09-2024 Note. MICRO - Microbiology PROCEDURE: Blood Culture [...] Locations *1: This test was performed at: [facility], [address] [place] [address], [id number]- , [facility] [id number] Hospital Discharge instructions Patient Education 02/01/2024 17:18:13 Atrial Fibrillation, Xfag-sw-Xtvm Atrial Fibrillation Atrial fibrillation is a type [...] Follow these instructions at home: Medicines Take akcl-erq-ndmznza and prescription medicines only as told by [...] 02/21/2009 Document Revised: 07/19/2018 Document Reviewed: 07/06/2018 [employer] Patient Education 2020 [employer]. Follow Up Care 01/31/2024 00:20:11 With:GIRMA CORREA Address: [address] [place] [address]- When:1-2 days Comments:Please call the office to schedule a hospital follow-up appointment. [facility] 09-05-2024 Note Discharge Instructions Thank you for allowing [facility] to assist you with your healthcare needs. The following is importantdischarge information regarding your hospital visit. Your Care Team GIRMA CORREA Your Diagnosis Shortness of breath What to do next Instructions From Your Doctor Resume taking all your usual medications Keep yourself hydrated Follow-up with your primary care physician and assessment clinician Scheduled Follow-Up Appointments Appointment Type When With Where Contact Information StatusPC Wellness Annual w/Labs 02/13/2024 03:30 PM EDT GIRMA CORREA [facility] Confirmed Follow Up Appointments Follow Up with GIRMA CORREA When:Within 1-2 days Where:[address] [place] [address]- Additional Information: Please call the office to [...] Follow these instructions at home: Medicines Take nwvo-dtk-olqbgbc and prescription medicines only as told by [...] 02/21/2009 Document Revised: 07/19/2018 Document Reviewed: 07/06/2018 [employer] Patient Education 2020 [employer]. Additional Information VACCINATE! IT SAVES LIVES! Members of the community who have not yet received the COVID-19 vaccine and would like to receive it can visit one of [facility] vaccine clinics. There are many vaccine clinic locations within the [facility]. For locations and available times, please visit [email or web address].[place].gov/. It is important to note that some COVID mobile vaccine clinics are held outdoors and may be canceled in rainy or stormy conditions. To learn more about pediatric vaccinations (ages 5-11), we invite you to visit the [facility] webpage. https://www.[facility].org/pages/9976-Rlxgh-Qhgefugawpw-Gkrcjvnkxp-Tszzs-Fwm stions.htmlTo learn more about the COVID-19 vaccine, we invite you to visit the CDC website for a list of frequently asked questions.https://www.cdc.gov/coronavirus/2019-ncov/vaccines/faq.html [facility] Patient Portal Access Instructions: Stay connected with your healthcare team and access your personal medical information anytime with the [facility] Patient Portal. Please follow the directions below to create your [facility] account: 1.Access the email account you provided upon registration to the hospital/physician office.2.Look for an invitation email from [facility].3.Open the email and access the invitation link: AcceptInvitation to [facility].4.Fill in the required orr to create your account. To access your account, visit [employer]. Click the blue button labeled "Access Patient [...] who you will allowto register on the [facility] for access to your information. You can also access the [facility] Patient Portal on the [facility] frida. Simply click on "Patient Portal" and then log into your account. If you would like to receive a full copy of your medical records, please contact the [facility] Medical Records Department by calling [phone], Monday through Monday between 8 a.m. and [...] Call your local pharmacy or go to [email or web address] to find one close to you.3.Make use of household items: Use cat litter or old coffee grounds to dispose medications if other options arenot available. Mix your drugs with these household products, seal them in an airtight container andthrow it into the garbage. Call [facility]: [phone] to be sure your drugs can be [...] COPY. Signatures Patient Education Materials Atrial Fibrillation, Yych-jc-Vbqe Medication Leaflets My discharge plan and instructions have been reviewed and explained to me and I,CARLOS ALBERTO KELLEY understand my current condition and have read and understand these discharge instructions. I have received awritten copy of the plan/instructions. If I have questions, I am aware that I should contact my doctor. 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 The patient presented to the [facility] on 01/31/2024 as a transfer from [place] for A-fib with RVR. Apparently the patient [...] Follow-up with your primary care physician and assessment clinician Medications Unchanged acetaminophen (Tylenol)by mouth as needed [...] When:Within 1-2 days Where:[address] [place] [address]- Additional Information: Please call [...] BRENNON INGRAM MD on 02/01/2024 04:53 PM [facility] CenterEvv[facility]ax02-[facility]-1510 Cardiology Progress note HPI: 53-year-old morbidly obese [...] murmurs appreciated Abdomen benign Extremities good pulses BABBITTER grossly intact Skin warm to touch Laboratory [...] FREDDY HARTLEY MD on 02/01/2024 04:26 PM [facility] [id number] Anesthesiology Consult note Patient: CARLOS ALBERTO KELLEY [...] device, # 1 EA, 0 Refill(s), Pharmacy: [facility], 177.8, cm, 11/28/23 13:54:00 EDT, Height, 151.4, kg, 11/28/23 13:54:00 EDT, Dosin... Blood Glucose Test Strips: See Instructions, 1 bottle of 100 Test once daily, # 1 EA, 11 Refill(s), Pharmacy: [facility], 177.8, cm, 11/28/23 13:54:00 EDT, Height, 151.4, kg, 11/28/23 13:54:00 EDT, Dosing Weight FLUoxetine 20 mg oral capsule: Dose : 20 mg = 1 cap(s), Oral, qDay, # 30 cap(s), 3 Refill(s), Pharmacy: [facility], 177.8, cm, 11/28/23 13:54:00 EDT, Height, kg, 11/28/23 13:54:00 EDT,Dosing Weight Lancets: See Instructions, qs 1 month supply Test once daily, # 1 EA, 11 Refill(s), Pharmacy: [facility], 177.8, cm, 11/28/23 13:54:00 EDT, Height, 151.4, kg, 11/28/23 13:54:00 EDT, Dosing Weight Lasix 40 mg oral tablet: See Instructions, 1 tab in AM and 0.5 tab in PM, # 135 tab(s), 3 Refill(s), Pharmacy: [facility], 177.8, cm, 11/28/23 13:54:00 EDT, Height, kg, 11/28/23 13:54:00 EDT, Dosing Weight Symbicort 80 mcg-4.5 mcg/inh Inhaler: Dose = 2 puff(s), Inhalation, BID, # 10.2 gram(s), 3 Refill(s), Pharmacy: [facility], 177.8, cm, 11/28/23 13:54:00 EDT, [...] chew, # 180 tab(s), 3 Refill(s), Pharmacy: [facility], Shortness of breath, 177.8, cm, 11/28/23 13:54:00 EDT, Height, kg, 11/28/23 13:54:00 EDT, Dosing Weight Trulicity Pen 1.5 mg/0.5 mL subcutaneous solution: Dose : 1.5 mg =, Subcutaneous, qWeek, sent in absence of PCP, # 4 EA, 3 Refill(s), Pharmacy: [facility], 177.8, cm, 11/28/23 13:54:00EDT, Height, kg, 11/28/23 13:54:00 EDT, Dosing Weight Vistaril 25 mg oral capsule: Dose : 25 mg = 1 cap(s), Oral, QID, PRN as needed for anxiety, X 30 day(s), # 120 cap(s), 5 Refill(s), 06/09/24 16:10:00 EST, Pharmacy: [facility], 177.8, cm, 11/28/23 13:54:00 EDT, Height, kg, 11/28/23 13:54:00 EDT, Dosing Weight Xarelto 20 mg oral tablet: Dose : 20 mg = 1 tab(s), Oral, qHS, # 90 tab(s), 3 Refill(s), Pharmacy: [facility], 177.8, cm, 11/28/23 13:54:00 EDT, Height, 151.4, kg, 11/28/23 13:54:00 EDT, Dosing Weight allopurinol 100 mg oral tablet: Dose : 100 mg = 1 tab(s), Oral, qDay, # 90 tab(s), 3 Refill(s), Pharmacy: [facility], 177.8, cm, 11/28/23 13:54:00 EDT, Height, kg, 11/28/23 13:54:00 EDT, Dosing Weight cetirizine 10 mg oral tablet: Dose : 10 mg = 1 tab(s), Oral, Daily, # 90 tab(s), 3 Refill(s), Pharmacy: [facility], 177.8, cm, 11/28/23 13:54:00 EDT, [...] meal., # 180 cap(s), 3 Refill(s), Pharmacy: [facility], 177.8, cm, 11/28/23 13:54:00 EDT, Height, kg, 11/28/23 13:54:00 EDT, Dosing Weight rosuvastatin 20 mg oral tablet: Dose : 20 mg = 1 tab(s), Oral, Daily, # 100 tab(s), 3 Refill(s), Pharmacy: [facility], 177.8, cm, 11/28/23 13:54:00 EDT, Height, kg, 11/28/23 13:54:00 EDT, Dosing Weight sacubitril-valsartan 49 mg-51 mg oral tablet: Dose = 1 tab(s), Oral, BID, # 180 tab(s), 3 Refill(s), Pharmacy: [facility], 177.8, cm, 11/28/23 13:54:00 EDT, Height, kg, 11/28/23 13:54:00 EDT, Dosing Weight spironolactone 25 mg oral tablet: Dose : 25 mg = 1 tab(s), Oral, qDay, # 90 tab(s), 3 Refill(s), Pharmacy: [facility], 177.8, cm, 11/28/23 13:54:00 EDT, Height, kg, 11/28/23 13:54:00 EDT, Dosing Weight tiZANidine 2 mg oral tablet: Dose : 2 mg = 1 tab(s), Oral, q8h, PRN as needed for muscle spasm, # 90 tab(s), 2 Refill(s), Pharmacy: [facility], 177.8, cm, 11/28/23 13:54:00 EDT, Height, kg, 11/28/23 13:54:00 EDT, Dosing Weight traZODone 100 mg oral tablet: Dose : 100 mg = 1 tab(s), Oral, qHS, # 90 tab(s), 3 Refill(s), Pharmacy: [facility], 177.8, cm, 11/28/23 13:54:00 EDT, [...] list: Medical Asthma exacerbation / SNOMED CT 2136804696 / Confirmed Anxiety / SNOMED CT 07038652 / Confirmed Atopic dermatitis / SNOMED CT 58159864 / Confirmed BMI 45.0-49.9, adult / SNOMED CT 3424826519 / Confirmed Cardiomyopathy / SNOMED CT 273214527 / Confirmed Diabetes mellitus / SNOMED CT 608902245 / Confirmed Generalized anxiety disorder / SNOMED CT 04966083 / Confirmed Hyperlipidemia / SNOMED CT 87128566 / Confirmed Hypertension / SNOMED CT 3381123339 / Confirmed Insomnia / SNOMED CT 335048113 / Confirmed Moderate asthma / SNOMED CT 7356313272 / Confirmed Morbid obesity / SNOMED CT 358218558 / Confirmed Chewing tobacco nicotine dependence / SNOMED CT 83572185 / Confirmed Obstructive sleep apnea / SNOMED CT 565219187 / Confirmed Right knee pain / SNOMED CT 0870712669 / Confirmed Paroxysmal atrial fibrillation / SNOMED CT 218087322 / Confirmed Screening for ischemic heart disease / SNOMED CT 090583119 / Confirmed Screening for colon cancer / SNOMED CT 742296080 / Confirmed Prediabetes / SNOMED CT 1555247392 / Confirmed Right flank pain / SNOMED CT 610763225 / Confirmed Type 2 diabetes mellitus with hemoglobin A1c goal of less than 7.0% / SNOMED CT 061969055 / Confirmed Wheezing / SNOMED CT 07486843 / Confirmed, Active Problems (26) Anxiety Asthma [...] Mother Grandparent Stroke Father Procedure history: Cardioversion ([id number]) on 12/23/2022 at 52 Years. Echocardiogram ([id number]) on 11/11/2022 at 52 Years. Comments: 03/20/2023 [...] atrial pressure is 15 mm Hg Elbow ([id number]). Comments: 07/11/2022 8:26 SHAHEEN Nunez bursitis - [...] On and Limits Checked Nail Bed Color [place] Capillary Refill < 2 seconds Heart Sounds [...] Elimination Voiding, no difficulties All Extremity Description [place] Skin Temperature Warm Temperature All Extremities Warm Skin Description [place], Dry Skin Integrity Intact Skin Turgor Non-Elastic Mucous Membrane Color [place] Mucous Membrane Description Moist Neurological Language Able to speak clearly Neurological Symptoms Patient denies Gait Unable to assess Extremity Movement Equal Swallowing Difficulty None Characteristics of Communication Appropriate Characteristics of Speech Clear Facial Symmetry Symmetric Level of Consciousness Alert Aspiration Risk None Eye Opening Response Luis Felipe Spontaneously Best Motor Response [place] Obeys simple commands Best Verbal Response [place] Oriented Luis Felipe Coma Score 15 CLARA [...] On and Limits Checked Nail Bed Color [place] Capillary Refill < 2 seconds Heart Sounds ICU S1S2 Heart Rhythm Irregular Cardiac Rhythm Sinus rhythm Monitoring Lead II, V5/MCL5 AR Interval 0.16 second(s) QRS Duration 0.08 second(s) [...] Elimination Voiding, no difficulties All Extremity Description [place] Skin Temperature Warm Temperature All Extremities Warm Skin Description [place], Dry Skin Integrity Intact Skin Turgor Non-Elastic Mucous Membrane Color [place] Mucous Membrane Description Moist Neurological Language Able to speak clearly Neurological Symptoms Patient denies Gait Unable to assess Extremity Movement Equal Swallowing Difficulty None Characteristics of Communication Appropriate Characteristics of Speech Clear Facial Symmetry Symmetric Level of Consciousness Alert Aspiration Risk None Eye Opening Response [place] Spontaneously Best Motor Response [place] Obeys simple commands Best Verbal Response Luis Felipe Oriented [place] Coma Score 15 CLARA Yes Strength All [...] On and Limits Checked Nail Bed Color [place] Capillary Refill < 2 seconds Heart Sounds [...] Movement Makes facial grimaces All Extremity Description [place] Skin Temperature Warm Temperature All Extremities Warm Skin Description [place], Dry Skin Integrity Intact Skin Turgor Non-Elastic Mucous Membrane Color [place] Mucous Membrane Description Moist Sensory Perception [place] [...] On and Limits Checked Nail Bed Color [place] Capillary Refill < 2 seconds Heart Sounds [...] intact Skin Turgor Non-Elastic Mucous Membrane Color [place] Mucous Membrane Description Moist Neurological Language Able to speak clearly Neurological Symptoms Patient denies Extremity Movement Equal Swallowing Difficulty None Characteristics of Communication Appropriate Characteristics of Speech Clear Facial Symmetry Symmetric Level of Consciousness Alert Aspiration Risk None Eye Opening Response Luis Felipe Spontaneously Best Motor Response [place] Obeys simple commands Best Verbal Response Luis [...] of Bed Elevated 30 01/31/2024 15:38 EDT [facility] Current Living Situation I have a steady place to live [facility] Current Issues Living Environment None [facility] Worried Food Running Out P12M Never true [facility] Food Gone, No Money To Buy P12M Never true [facility] No Transport Med/Appt/Work P12M No [facility] Utilities Threaten Shut Off P12M No [facility] Anyone Physically Hurt You Never (1) [facility] Anyone Insult Or Talk Down To You Never (1) [facility] Anyone Threaten You With Harm Never (1) [facility] Anyone Scream Or Curse At You Never (1) [facility] Safety Total Score 4 Living Situation Lives with family Discharge To, Anticipated Home independently Anticipated Discharge Date 02/02/2024 Transition Planning Note Transition Planning Initial Assessment 01/31/2024 15:36 EDT Primary Care Phone Message Transition of Care sent from [facility] 01/31/2024 14:59 EDT heparin 9,000 unit(s) unit(s) Dextrose 5% Premix Diluent 90 mL mL 01/31/2024 14:43 EDT [facility] Body Weight 72.7 kg Home Diet Regular Weight Chg, Unintentional Nutrition Hx Weight stable per bison history Appetite Good Nutrition Plan of Care Dietitian follow up/monitor, Encourage PO feedings, Participate in team conference Nutrition Follow-Up Needed Yes Days until Relief Salesperson Follow Up Seven days Adult Nutrition Initial Assessment/Plan Adult Nutrition Assessment/Plan 01/31/2024 14:22 EDT Transition of Care Note Transition of Care sent from [facility] 01/31/2024 14:00 EDT Hand Right 01/30/2024 20 [...] On and Limits Checked Nail Bed Color [place] Capillary Refill < 2 seconds Heart Rhythm [...] Description Normal for ethnicity Mucous Membrane Color [place] Mucous Membrane Description Moist Hand Right 01/30/2024 [...] On and Limits Checked Nail Bed Color [place] Capillary Refill < 2 seconds Heart Rhythm [...] intact Skin Turgor Non-Elastic Mucous Membrane Color [place] Mucous Membrane Description Moist Continuous IV Infusions [...] Alert Aspiration Risk None Eye Opening Response [place] Spontaneously Best Motor Response Luis Felipe Obeys simple commands Best Verbal Response [place] Oriented [place] Coma Score 15 CLARA Yes Left Pupil [...] On and Limits Checked Nail Bed Color [place] Capillary Refill < 2 seconds Heart Rhythm Irregular Pretibial edema Bilateral Edema Ratin+ trace/2mm Cardiac Rhythm Atrial fibrillation Monitoring Lead II, V6/MCL6 Alarms On and Functional Yes Respirations Unlabored Respi (more content not included)... [facility] [id number] NoteSINUS RHYTHM IVCD MISSING LEAD(S): V1,V2,V3,V4,V5 Electronic Signature: MOY WATTS MD 02/01/2024 11:10:[address] [place] [address] 09-04-2024 Cardiology Consult note Date of Service [...] anxiety and gout who initially presented to [facility] on 01/30/2024 for shortness of breath [...] not tolerate Cardizem drip. Patient transferred to [facility] for further management. Placed on Levophed. [...] (s): 1.87 H Assessment/Plan A-fib with RVR ([id number] 2) Near syncopal episode Tachycardia mediated cardiomyopathy [...] Will continue to follow. Patient seen with assessment clinician Dr. Hartley who agreed with plan. Please [...] MICHELLE HENRY MD on 01/31/2024 12:53 PM [facility] [id number] Note* Exam Date Time Procedure Performing Provider Status 01/31/24 4:20 PM Echocardiogram, Adult - CV Auth (Verified) [facility] 09-04-2024 Note. MICRO - Microbiology [...] Locations *1: This test was performed at: [address], [address] [place], [place] [address]01-31-2024 Note. MICRO - Microbiology PROCEDURE: Blood Culture [...] Locations *1: This test was performed at: [address], [address] [place], [place] [address]-31-2024 Evaluation + Plan noteExtracted from: Title:History and [...] prophylactically got a dose of ceftriaxone at [place] [place]. We will continue with prophylactic ceftriaxone dose [...] atrial fibrillation with rapid ventricular rate at [facility] admitted to the ICU overnight [...] Appointment Date:02/13/2024 03:30:00 PM Scheduled Provider:GIRMA CORREA Location:[facility] Appointment Type: Wellness Annual w/Labs Diagnostic Tests Pending * Culture Respiratory with Gram Stain 01/31/24 * APTT 02/01/24 Future Scheduled Tests Laboratory* Basic Metabolic Panel 04/01/23 * Prostate Specific Antigen 02/07/24 * A1C Hemoglobin 02/07/24 * Lipid Profile 02/07/24 * Complete Metabolic Panel 02/07/24 [facility] 09-04-2024 History and physical note [...] evaluated On arrival to the ER at [facility] [place], patient was febrile 37.4, tachycardic 133, tachypneic 21, BP 90/76, was saturating 96% on room air. Labs done at [facility] 01/30/2024 revealed pO2 51 on the gases [...] prophylactically got a dose of ceftriaxone at [facility] [place].We will continue with prophylactic ceftriaxone dose as [...] CINDY HERNANDEZ MD on 01/31/2024 08:06 AM [facility] [id number] Cardiology Consult note Date of Service 01/31/2024 [...] anxiety and gout who initially presented to [facility] on 01/30/2024 for shortness of breath [...] not tolerate Cardizem drip. Patient transferred to [facility] for further management. Placed on Levophed. [...] (s): 1.87 H Assessment/Plan A-fib with RVR ([id number] 2) Near syncopal episode Tachycardia mediated cardiomyopathy [...] Will continue to follow. Patient seen with assessment clinician Dr. Hartley who agreed with plan. Please [...] MICHELLE HENRY MD on 01/31/2024 12:53 PM [facility] [id number] NoteATRIAL FIBRILLATION LAD, CONSIDER LEFT ANTERIOR FASCICULAR BLOCK LOW VOLTAGE, PRECORDIAL LEADS BORDERLINE T ABNORMALITIES, INFERIOR LEADS BORDERLINE PROLONGED QT INTERVAL Electronic Signature: MOY WATTS MD 02/01/2024 11:10[facility] 09-04-2024 Note. MICRO - Microbiology PROCEDURE: [...] Locations *1: This test was performed at: [address], [address] [place], [place] [address]-31-2024 Note. MICRO - Microbiology PROCEDURE: Blood Culture [...] Locations *1: This test was performed at: [address], [address] [place], [place] [address]01-31-2024 History and physical note Date of Service [...] evaluated On arrival to the ER at [facility], patient was febrile 37.4, tachycardic 133, tachypneic 21, BP 90/76, was saturating 96% on room air. Labs done at [facility] 01/30/2024 revealed pO2 51 on the gases [...] prophylactically got a dose of ceftriaxone at [facility] [place].We will continue with prophylactic ceftriaxone dose as [...] CINDY HERNANDEZ MD on 01/31/2024 08:06 AM [facility] [id number] Note ORIGINAL EXAMINATION: CT OF THE HEAD [...] Sign Date: 01/30/2024 10:16:46 PM Ordering Provider: [facility]09-03-2024 Note ORIGINAL EXAMINATION: ONE XRAY [...] Date: 01/30/2024 9:28:12 PM [facility] NoteAtrial flutter Left anterior fascicular block Borderline low voltage, extremity leads Abnormal R-wave progression, late transition Borderline ST depression, lateral leads Prolonged QT interval Baseline wander in lead(s) V3,V5 Electronic Signature: MD SAMY JONES MD 01/30/2024 21:01:46[facility] 03-13-2024 Hospital Discharge instructions Patient Education 08/09/2023 [...] get worse or if new symptoms appear. [id number] [employer]. [address] [place] [address], [place] [address]. All rights reserved. This information is not intended as a substitute for professional medical care. Always follow yourhealthcare professional's instructions. Follow Up Care 08/09/2023 21:02:01 With:GIRMA CORREA Address: [address] [facility] [place] [address]- [phone] Business (1) When:5-7 days Comments:Use warm compresses, Tylenol as discussed, return if any worsening or concerning symptoms. Follow-up closely with your doctor. [facility] Edy 03-13-2024 Note Discharge Instructions Thank [...] your doctor. Where: [address] [facility] [place] [address]- [phone] Business (1) Allergies NKA Medications Please ask [...] get worse or if new symptoms appear. 3725-6894 The [employer]. [address] [place] [address], [place] [address]. All rights reserved. This information is not intended as a substitute for professional medical care. Always follow yourhealthcare professional's instructions. Additional Information VACCINATE! IT SAVES LIVES! Members of the community who have not yet received the COVID-19 vaccine and would like to receive it can visit one of [facility] vaccine clinics. There are many vaccine clinic locations within the [facility]. For locations and available times, please visit www.gettheot.coronavirus.[place].gov/. It is important to note that some COVID mobile vaccine clinics are held outdoors and may be canceled in rainy or stormy conditions. To learn more about pediatric vaccinations (ages 5-11), we invite you to visit the [employer] [employer] [facility] webpage. https://www.akronZawatts.org/pages/4905-Ibfud-Zzkdipiivza-Lydpdwuami-Lnuxk-Kbu stions.htmlTo learn more about the COVID-19 vaccine, we invite you to visit the CDC website for a list of frequently asked questions. https://www.cdc.gov/coronavirus/2019-ncov/vaccines/faq.html [facility] Patient Portal Access Instructions: Stay connected with your healthcare team and access your personal medical information anytime with the [employer] Patient Portal. If you would like a full copy of your medical records please contact the [facility] Medical Records Department Monday through Monday between 8a.m. and 4:30p.m. Please follow the directions below to access the portal: 1.Access the email account you provided upon registration to the hospital.2.Look for an invitation email from [facility].3.Open the email and access the invitation link: Accept Invitation to [facility]4.Fill in the required orr to create your account. Sign into www.[employer] with your username and password that you [...] you will allow to register on the [facility] [facility] Patient Portal for access to your information. You can also access the [facility] Patient Portal on the [employer] frida. Simply click on "Health Records" under [...] Call your local pharmacy or go to [email or web address] to find one close to you.3.Make use of household items: Use cat litter or old coffee grounds to dispose medications if other options arenot available. Mix your drugs with these household products, seal them in an airtight container andthrow it into the garbage. Call [facility]: [phone] to be sure your drugs can be [...] aware that I should contact my doctor. 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 You may use pvgn-hri-zyjwosp medicine to control fever or pain, unless [...] loosen secretions in the nose and lungs. Rywp-bzg-ysnkzug cough, cold, and sore-throat medicines will not [...] shortness of breath, or pain with breathing 7447-0042 [employer]. [address] [place] [address], [place] [address]. All rights reserved. This information is not intended as a substitute for professional medical care. Always follow yourhealthcare professional's instructions. Follow Up Care 06/13/2023 00:01:18 With:GIRMA CORREA Address: [address] [facility] [place] [address]- [phone] Business (1) When:3-7 days Comments:Schedule appointment for [...] portal.Return to the ED if symptoms worsen. [facility] 01-16-2024 Note Discharge Instructions Thank you for allowing [facility] to assist you with your healthcare needs. [...] symptoms worsen. Where: [address] [place] [place] [address]- [phone] Business (1) Allergies NKA Medications Please ask [...] exposed to secondhand smoke. You may use vioq-hbj-yffycna medicine to control fever or pain, unless [...] loosen secretions in the nose and lungs. Zhmf-xdf-wswuptk cough, cold, and sore-throat medicines will not [...] shortness of breath, or pain with breathing 4848-0046 [employer]. [address] [place] [address]. All rights reserved. This information is not intended as a substitute for professional medical care. Always follow yourhealthcare professional's instructions. Additional Information VACCINATE! IT SAVES LIVES! Members of the community who have not yet received the COVID-19 vaccine and would like to receive it can visit one of [facility] vaccine clinics. There are many vaccine clinic locations within the [facility]. For locations and available times, please visit www.gettheshot.coronavirus.[place].gov/. It is important to note that some COVID mobile vaccine clinics are held outdoors and may be canceled in rainy or stormy conditions. To learn more about pediatric vaccinations (ages 5-11), we invite you to visit the [employer] [employer] [facility] webpage. https://www.[facility]ron[facility]s.org/pages/7112-Byiks-Qvpnfsvqfic-Bhoctxwtia-Sqblu-Iax stions.htmlTo learn more about the COVID-19 vaccine, we invite you to visit the CDC website for a list of frequently asked questions. https://www.cdc.gov/coronavirus/2019-ncov/vaccines/faq.html [facility] Patient Portal Access Instructions: Stay connected with your healthcare team and access your personal medical information anytime with the [employer] Patient Portal. If you would like a full copy of your medical records please contact the [facility] Medical Records Department Monday through Monday between 8a.m. and 4:30p.m. Please follow the directions below to access the portal: 1.Access the email account you provided upon registration to the [facility].2.Look for an invitation email from [facility].3.Open the email and access the invitation link: Accept Invitation to [facility]4.Fill in the required orr to create your account. Sign into www.[employer] with your username and password that you [...] you will allow to register on the [employer] Patient Portal for access to your information. You can also access the [employer] Patient Portal on the [employer] frida. Simply click on "Health Records" under "HealthDaAetel.inc (Droppy)" and then click on the [employer] logo. HOW TO SAFELY DISPOSE OF PRESCRIPTION [...] Call your local pharmacy or go to [email or web address] to find one close to you.3.Make use of household items: Use cat litter or old coffee grounds to dispose medications if other options arenot available. Mix your drugs with these household products, seal them in an airtight container andthrow it into the garbage. Call [facility]: [phone] to be sure your drugs can be [...] aware that I should contact my doctor. Patient/Conveyor System Dispatcher Signature: Date/Time: Relationship to Patient: Witness Name/Signature: Date/Time: [facility]01-16-2024 Note ORIGINAL EXAMINATION: ONE XRAY VIEW OF [...] Sign Date: 06/13/2023 12:39:50 AM Ordering Provider: [facility]01-12-2024 Hospital Discharge instructions Patient Education 06/09/2023 20:03:33 Atrial Fibrillation, Horp-wj-Ewan Atrial Fibrillation Atrial fibrillation is a type [...] Follow these instructions at home: Medicines Take ymtv-lnz-grskgct and prescription medicines only as told by [...] 02/21/2009 Document Revised: 07/19/2018 Document Reviewed: 07/06/2018 [employer] Patient Education 2020 [employer]. Follow Up Care 06/06/2023 16:24:50 With:[facility]IRMA CORREA [facility] Address: [address] [place], [place] [id number]- [phone] When: Unknown Comments:PLEASE CALL THIS OFFICE TO SCHEDULE A HOSPITAL FOLLOW UP APPOINTMENT With:MOY WATTS MD Address: [address] [place] [address] [address] [place], [place] [id number]- [phone] When:07/17/2023 15:15:00 Comments:THIS APPOINTMENT WILL BE WITH ZHOU ESPINOSA CNP [facility] 01-12-2024 Note Discharge Instructions Thank you for allowing [facility] to assist you with your healthcare needs. The following is importantdischarge information regarding your hospital visit. Your Care Team GIRMA CORREA Your Diagnosis Shortness of breath What to do next Scheduled Follow-Up Appointments Appointment Type When With Where Contact InformationPC OV 06/20/2023 02:30 PM EST GIRMA CORREA [facility] CV OV 07/17/2023 03:15 PM EST ZHOU ESPINOAS [facility] Follow Up Appointments Follow Up with MOY WATTS MD When 07/17/2023 03:15 PM EST Why: THIS APPOINTMENT WILL BE WITH ZHOU ESPINOSA CNP Where: [address] [place] [address] [address] [place] [id number]- [phone] Follow Up with GIRMA CORREA When Why: PLEASE CALL THIS OFFICE TO SCHEDULE A HOSPITAL FOLLOW UP APPOINTMENT Where: [address] [place], [place] [id number]- [phone] The Following Activity and Diet Have Been [...] day Refills: 2 Pickup at [facility] #[id number] Changed FLUoxetine (FLUoxetine 10 mg oral capsule) 1 cap by mouth Once a day Pickup at [facility] #[id number] Unchanged allopurinol (allopurinol 100 mg oral tablet) [...] Daily at bedtime Pharmacy Information [facility] #[id number]: [address], [place] [id number] [phone] Please take this list to your next [...] may report side effects to FDA at 2-790-OVY-2359. What other drugs will affect dofetilide? Other drugs may interact with dofetilide, including prescription and wprr-bbk-ltslohr medicines, vitamins, and herbal products. Tell each [...] to ensure that the information provided by [employer]. ('Immediatum') is accurate, up-to-date, and complete, but no guarantee is made to that effect. Drug information contained herein may be time sensitive. [employer]ounder information has been compiled for use by healthcare practitioners and consumers in the [place] and therefore Sounder does not warrant that uses outside of the [place] are appropriate, unless specifically indicated otherwise. [employer] drug information does not endorse drugs, diagnose patients or recommend therapy. [employer] drug information isan informational resource designed to [...] effective or appropriate for any given patient. [facility] does not assume any responsibility for any aspect of healthcare administered with the aid of information [facility] provides. The information contained herein is not intended to cover all possible uses, directions, precautions, warnings, drug interactions, allergic reactions, or adverse effects. If you have questions about the drugs you are taking, check with your doctor, nurse or pharmacist. Copyright 6900-4086 [employer]. Version: 4.01. Revision Date: 09/09/2015. Education Materials [...] Follow these instructions at home: Medicines Take hwaa-kvc-atauomu and prescription medicines only as told by [...] Document Reviewed: 07/06/2018 Elsevier Patient Education 2020 [employer] Additional Information VACCINATE! IT SAVES LIVES! Members of the community who have not yet received the COVID-19 vaccine and would like to receive it can visit one of [facility] vaccine clinics. There are many vaccine clinic locations within the [facility]. For locations and available times, please visit https://gettheshot.coronavirus.[place].gov/. It is important to note that some COVID mobile vaccine clinics are held outdoors and may be canceled in rainy or stormy conditions. To learn more about pediatric vaccinations (ages 5-11), we invite you to visit the [employer] webpage. https://www.Phoenix Bookss.org/pages/6879-Pswyj-Japveqvhrhi-Znrbmyexmy-Gqaxs-Vpp stions.htmlTo learn more about the COVID-19 vaccine, we invite you to visit the CDC website for a list of frequently asked questions.https://www.cdc.gov/coronavirus/2019-ncov/vaccines/faq.html [facility] Patient Portal Access Instructions: Stay connected with your healthcare team and access your personal medical information anytime with the [employer] Patient Portal. Please follow the directions below to create your [employer] account: 1.Access the email account you provided upon registration to the hospital/physician office.2.Look for an invitation email from [facility].3.Open the email and access the invitation link: AcceptInvitation to [facility].4.Fill in the required orr to create your account. To access your account, visit [employer] MobileOneChart. Click the blue button labeled "Access Patient Portal" and then log in with the username and password that you created in the steps above. You will be able to view your test results, lab results, a summary of your visits, upcoming appointments and more. There is also a convenient messaging option where you can send secure messages to your [facility]. In addition, you will have the ability to download any documents or summaries to your computer and/or send the information securely to a physician. Remember that your healthcare information is confidential, so carefully consider who you will allowto register on the [facility] Patient Portal for access to your information. You can also access the [facility] Patient Portal on the [facility] frida. Simply click on "Patient Portal" and then log into your account. If you would like to receive a full copy of your medical records, please contact the [facility] Medical Records Department by calling [phone], Monday through Monday between 8 a.m. and [...] Call your local pharmacy or go to [email or web address] to find one close to you.3.Make use of household items: Use cat litter or old coffee grounds to dispose medications if other options arenot available. Mix your drugs with these household products, seal them in an airtight container andthrow it into the garbage. Call [facility]: [phone] to be sure your drugs can be [...] COPY. Signatures Patient Education Materials Atrial Fibrillation, Clqd-hl-Ajzg Medication Leaflets Selina My discharge plan and instructions have been reviewed and explained to me and I,CARLOS ALBERTO KELLEY understand my current condition and have read and understand these discharge instructions. I have received awritten copy of the plan/instructions. If I have questions, I am aware that I should contact my doctor. Patient/Conveyor System Dispatcher Signature: Date/Time: Relationship to Patient: Witness Name/Signature: Date/Time[facility] Discharge summary Date of Service 06/09/23 Discharge Diagnosis Other persistent atrial fibrillation (I48.19 - ICD-10-CM) Encounter for therapeutic drug level monitoring (Z51.81 - ICD-10-CM) Morbid (severe) obesity due to excess calories (E66.01 - ICD-10-CM) Hypertensive heart disease without heart failure (I11.9 - ICD-10-CM) Gastro-esophageal reflux disease without esophagitis (K21.9 - ICD-10-CM) [facility] (current) use of anticoagulants (Z79.01 - ICD-10-CM) Shortness of breath (R06.02 - ICD-10-CM) Additional Orders: Ordered: Communication Order (continuous),06/09/23 12:44:00 EST, ok to DC home after 5th dose of tikosyn this evening as long as QT is reviewed by distillation operator fellow, Constant order Ordered: Discharge,06/09/23 12:44:00 EST, [...] qDay, # 30 cap(s), 2 Refill(s), [id number], 176, cm, 06/07/23 13:36:00 EST, Height, kg, 06/07/23 13:36:00 EST, Dosing Weight Ordered: Tikosyn 250 mcg oral capsule,Dose : 250 mcg = 1 cap(s), Oral, BID, # 60 cap(s), 2 Refill(s), Pharmacy: [facility] #[id number], 176, cm, 06/07/23 13:36:00 EST, Height, kg, [...] Where: [address] [facility] [place] [place] [address]- [phone] Follow Up with GIRMA CORREA When Why: PLEASE CALL THIS OFFICE TO SCHEDULE A HOSPITAL FOLLOW UP APPOINTMENT Where: [address] [place] [address]- [phone] Follow Up Appointments No qualifying data available. Follow Up Labs/Studies Discharge Labs No Follow-up Labs Discharge Studies No Follow-up Studies Discharge Diet Discharge Diet - Ordered -- Type of Diet: Cardiac, Sodium limit: 2 gm, 06/09/23 12:44:00 EST Discharge Activity No qualifying data available. 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 (Z79.01 - ICD-10-CM) Shortness of breath (R06.02 - ICD-10-CM) Additional Orders: Ordered: Communication Order (continuous),06/09/23 12:44:00 EST, ok to DC home after 5th dose of tikosyn this evening as long as QT is reviewed by distillation operator fellow, Constant order Ordered: Discharge,06/09/23 12:44:00 EST, [...] qDay, # 30 cap(s), 2 Refill(s), Pharmacy: [facility] #[id number], 176, cm, 06/07/23 13:36:00 EST, Height, kg, 06/07/23 13:36:00 EST, Dosing Weight Ordered: Tikosyn 250 mcg oral capsule,Dose : 250 mcg = 1 cap(s), Oral, BID, # 60 cap(s), 2 Refill(s), Pharmacy: [facility] #[id number], 176, cm, 06/07/23 13:36:00 EST, Height, kg, [...] When 07/07/2023 01:00 PM EST [facility] [address] [facility] [facility] [place] [address]- [phone] Follow Up with GIRMA CORREA When Why: PLEASE CALL THIS OFFICE TO SCHEDULE A HOSPITAL FOLLOW UP APPOINTMENT Where: [address] [place] [address]- [phone] Follow Up Appointments No qualifying data available. Follow Up Labs/Studies Discharge Labs No Follow-up Labs Discharge Studies No Follow-up Studies Discharge Diet Discharge Diet - Ordered -- Type of Diet: Cardiac, Sodium limit: 2 gm, 06/09/23 12:44:00 EST Discharge Activity No qualifying data available. Condition on Discharge stable Discharge Disposition home Digitally Signed by AMELIA RENAE MD on 06/09/2023 12:53 PM [facility] [id number] NoteSINUS RHYTHM LEFT AXIS DEVIATION LOW VOLTAGE, PRECORDIAL LEADS PROLONGED QT INTERVAL POOR R-WAVE PROGRESSION Electronic Signature: SADE STRAUSS MD 06/09/2023 09:53:23[facility] 01-11-2024 Cardiology Progress note Date [...] AMELIA RENAE MD on 06/08/2023 03:03 PM [facility] [id number] Cardiology Progress note Date of Service 06/08/23 [...] AMELIA RENAE MD on 06/08/2023 03:03 PM [facility] CenterXtbkixym51-23-2509 NoteSINUS RHYTHM LAD, CONSIDER LEFT ANTERIOR FASCICULAR BLOCK LOW VOLTAGE, PRECORDIAL LEADS BORDERLINE PROLONGED QT INTERVAL Poor R wave progression Electronic Signature: SADE STRAUSS MD 06/09/2023 09:53:37[facility] 01-10-2024 NoteSINUS RHYTHM BORDERLINE IVCD WITH LAD LOW VOLTAGE, PRECORDIAL LEADS CONSIDER ANTERIOR INFARCT Electronic Signature: SADE STRAUSS MD 06/08/2023 09:48:12[facility] 01-10-2024 History and physical note [...] 107 ms, QT interval approximately 450 ms. AR interval 184 ms. Renal function, electrolytes pending. [...] AMELIA RENAE MD on 06/07/2023 04:29 PM [facility] [id number] NoteSINUS RHYTHM LAD, CONSIDER LEFT ANTERIOR FASCICULAR BLOCK LOW VOLTAGE, PRECORDIAL LEADS Electronic Signature: SADE STRAUSS MD 06/08/2023 09:47:58[facility] 01-10-2024 History and physical note [...] 107 ms, QT interval approximately 450 ms. AR interval 184 ms. Renal function, electrolytes pending. [...] AMELIA RENAE MD on 06/07/2023 04:29 PM [facility] [id number] Evaluation + Plan noteExtracted from: Title:History and [...] Appointment Date:06/20/2023 02:30:00 PM Scheduled Provider:GIRMA CORREA Location:[facility] Appointment Type:PC OV Appointment Date:07/17/2023 03:15:00 PM Scheduled Provider:ZHOU ESPINOSA Location:[facility] Appointment Type:CV OV Future Scheduled Tests Laboratory* Basic Metabolic Panel 04/01/23 * A1C Hemoglobin 06/09/23 * Lipid Profile 06/09/23 * Complete Metabolic Panel 06/09/23 [facility] 01-10-2024 NoteSINUS RHYTHM MARKEDLY POSTERIOR QRS AXIS LOW VOLTAGE, PRECORDIAL LEADS BORDERLINE PROLONGED QT INTERVAL Electronic Signature: SADE STRAUSS MD 06/08/2023 09:47:38[facility] 12-08-2023 Hospital Discharge instructions Patient [...] in vomit, stools (black or red color) 0409-3089 [employer]. [address] [facility], [place] [address]. All rights reserved. This information is not [...] fainting Blood in your stool or urine 1132-4391 [employer]. [address] [place] [address], [place] [address]. All rights reserved. This information is not [...] will help ease pain. You may use ften-qpq-enlzrfk pain medicine such as acetaminophen or ibuprofen [...] suddenly or lasts more than an hour 8215-1670 [employer]. [address] [place] [address], [place] [address]. All rights reserved. This information is not intended as a substitute for professional medical care. Always follow yourhealthcare professional's instructions. Follow Up Care 05/05/2023 17:11:14 With:GIRMA CORREA Address: [address] [facility] [place] [phone] Business (1) When:5-7 days Comments:Follow-up as needed if symptoms or not improving.Limit activity as tolerated.Ice/cold compresses topainful areas.Use Tylenol, Advil or Aleve for pain as needed.Use Kewadin as prescribed for severe pain as needed.Take 10 deep breaths on the incentive stridor every hour while awake for the next week as advised.Return to the ED if symptoms worsen. [facility] 12-08-2023 Note Discharge Instructions Thank you for allowing [facility] to assist you with your healthcare needs. [...] or Aleve for pain as needed. Use Kewadin as prescribed for severe pain as needed. Take 10 deep breaths on the incentive stridor every hour while awake for the next week as advised. Return to the ED if symptoms worsen. Where: [address] [place] [place] [phone] Business (1) Allergies NKA Medications Please ask your primary doctor or pharmacist before taking any other medication not listed, including over the counter drugs, herbal medications, vitamins and or supplements as they may interact [facility] medications. What How Much When Why Instructions Last Dose New acetaminophen-hydrocodone (Kewadin 325- 5 mg oral tablet) 1 tab(s) [...] cancer screening As directed by provider at [facility]. Unchanged rivaroxaban (Xarelto 20 mg oral tablet) [...] may report side effects to FDA at 8-979-SUK-0820. What other drugs will affect acetaminophen and [...] affect acetaminophen and hydrocodone, including prescription and hdvq-xzg-uqsbrek medicines, vitamins, and herbal products. Not all [...] to ensure that the information provided by [employer]. ('Multum') is accurate, up-to-date, and complete, but no guarantee is made to that effect. Drug information contained herein may be time sensitive. Sounder information has been compiled for use by healthcare practitioners and consumers in the [place] and therefore Sounder does not warrant that uses outside of the [place] are appropriate, unless specifically indicated otherwise. TeePee Gamess drug information does not endorse drugs, diagnose patients or recommend therapy. TeePee Gamess drug information isan informational resource designed to [...] effective or appropriate for any given patient. Sounder does not assume any responsibility for any aspect of healthcare administered with the aid of information Sounder provides. The information contained herein is not intended to cover all possible uses, directions, precautions, warnings, drug interactions, allergic reactions, or adverse effects. If you have questions about the drugs you are taking, check with your doctor, nurse or pharmacist. Copyright 3593-8820 Almondy. Version: 19.. Revision Date: 01/16/2023. Education Materials [...] in vomit, stools (black or red color) 1082-70[address] [employer] Crunch[employer]. [address] [place] [address]. All rights reserved. This information is not [...] fainting Blood in your stool or urine 5771-0386 [employer]. [address] [place] [address]. All rights reserved. This information is not [...] will help ease pain. You may use cqih-hrx-pgaufbu pain medicine such as acetaminophen or ibuprofen [...] suddenly or lasts more than an hour 2723-0238 The [employer]. [address] [place] [address], [place] [address]. All rights reserved. This information is not intended as a substitute for professional medical care. Always follow yourhealthcare professional's instructions. Additional Information VACCINATE! IT SAVES LIVES! Members of the community who have not yet received the COVID-19 vaccine and would like to receive it can visit one of [facility] vaccine clinics. There are many vaccine clinic locations within the [facility]. For locations and available times, please visit www.[email or web address].[place].gov/. It is important to note that some COVID mobile vaccine clinics are held outdoors and may be canceled in rainy or stormy conditions. To learn more about pediatric vaccinations (ages 5-11), we invite you to visit the [facility] webpage. https://www.[facility].org/pages/3604-Byfgj-Xhvtpojzvto-Homlogqcee-Zwnyk-Sbr stions.htmlTo learn more about the COVID-19 vaccine, we invite you to visit the CDC website for a list of frequently asked questions. https://www.cdc.gov/coronavirus/2019-ncov/vaccines/faq.html [facility] Patient Portal Access Instructions: Stay connected with your healthcare team and access your personal medical information anytime with the [facility] Patient Portal. If you would like a full copy of your medical records please contact the [facility] Medical Records Department Monday through Monday between 8a.m. and 4:30p.m. Please follow the directions below to access the portal: 1.Access the email account you provided upon registration to the [facility].2.Look for an invitation email from [facility].3.Open the email and access the invitation link: Accept [facility] to [facility]4.Fill in the required orr to create your account. Sign into www.[employer] with your username and password that you [...] you will allow to register on the [facility] Patient Portal for access to your information. You can also access the [facility] Patient Portal on the [employer] frida. Simply click on "Health Records" under "HealthData" and then click on the Movitas Mobile logo. HOW TO SAFELY DISPOSE OF PRESCRIPTION [...] Call your local pharmacy or go to http://[email or web address].Bedrock [email or web address] to find one close to you.3.Make use of household items: Use cat litter or old coffee grounds to dispose medications if other options arenot available. Mix your drugs with these household products, seal them in an airtight container andthrow it into the garbage. Call [facility]: [phone] to be sure your drugs can be [...] aware that I should contact my doctor. Patient/Conveyor System Dispatcher Signature: Date/Time: Relationship to Patient: Witness Name/Signature: Date/Time: [facility]12-08-2023 Note ORIGINAL EXAMINATION: 2 XRAY VIEWS OF [...] Sign Date: 05/05/2023 9:08:30 PM Ordering Provider: [facility]12-08-2023 Note ORIGINAL EXAMINATION: ONE XRAY VIEW [...] Sign Date: 05/05/2023 9:17:04 PM Ordering Provider: [facility]11-06-2023 Note * Exam Date Time Procedure Performing Provider Status 04/03/23 9:43 AM Echocardiogram, Adult (AOH) Auth (Verified) [facility] 07-28-2023 Hospital Discharge instructions Patient Education 12/23/2022 [...] Document Reviewed: 05/16/2014 ExitCare Patient Information 2015 Gini.net. This information is not intended to replace [...] before eating solid foods. General instructions Take kqgq-ppe-twaxtdf and prescription medicines only as told by [...] 09/04/2016 Document Revised: 08/13/2018 Document Reviewed: 09/04/2016 Cytoo Patient Education 2020 [employer] Technologies. Follow Up Care 12/07/2022 09:52:07 With:ZHOU ESPINOSA Address: [address] [place] [address] [address] [facility] [place] [address] [phone] When: Unknown Comments:Follow-up as scheduled [facility] 07-28-2023 Note Discharge Instructions Thank you for allowing [facility] to assist you with your healthcare needs. The following is importantdischarge information regarding your hospital visit. Your Care Team GIRMA CORREA Your Diagnosis AF (atrial fibrillation) What to do next Scheduled Follow-Up Appointments Appointment Type When With Where Contact InformationPC OV 02/07/2023 02:30 PM EDT GIRMA CORREA [facility] Follow Up Appointments Follow Up with ZHOU ESPINOSA When Why: Follow-up as scheduled Where: [address] [facility] [place] [address]- [phone] Allergies NKA Medications Please ask your primary doctor or pharmacist before taking any other medication not listed, including over the counter drugs, herbal medications, vitamins and or supplements as they may interact withyour home medications. What How Much When Instructions Last Dose New losartan (losartan 100 mg oral tablet) 1 tab(s) by mouth Once a day Refills: 6 Pickup at [id number] Changed metoprolol (Toprol-XL 50 mg oral tablet, extended release) 1 tab(s) by mouth Two (2) times a day Pickup at [id number] Unchanged allopurinol (allopurinol 100 mg oral tablet) [...] a day Duration: 14 Days Pharmacy Information [facility] #[id number]: [address] [place], [place] [phone] What How Much When Comments Stop Taking [...] Document Revised: 05/01/2013 Document Reviewed: 05/16/2014 [facility] Patient Information 2015 Gini.net. This information is not intended to replace [...] before eating solid foods. General instructions Take kklu-ixn-ofgdpgg and prescription medicines only as told by [...] Document Reviewed: 09/04/2016 Elsevier Patient Education 2020 Cytoo Inc. Additional Information VACCINATE! IT SAVES LIVES! Members of the community who have not yet received the COVID-19 vaccine and would like to receive it can visit one of [facility] vaccine clinics. There are many vaccine clinic locations within the [facility]. For locations and available times, please visit https://[email or web address].gov/. It is important to note that some COVID mobile vaccine clinics are held outdoors and may be canceled in rainy or stormy conditions. To learn more about pediatric vaccinations (ages 5-11), we invite you to visit the [facility] webpage. https://www.[facility].org/pages/5790-Fpkvg-Unjvtgxdxby-Focwzwdloy-Vmlzq-Pqq stions.htmlTo learn more about the COVID-19 vaccine, we invite you to visit the CDC website for a list of frequently asked questions.https://www.cdc.gov/coronavirus/2019-ncov/vaccines/faq.html [facility] Patient Portal Access Instructions: Stay connected with your healthcare team and access your personal medical information anytime with the [facility] Patient Portal. Please follow the directions below to create your [facility] account: 1.Access the email account you provided upon registration to the hospital/physician office.2.Look for an invitation email from [facility].3.Open the email and access the invitation link: AcceptInvitation to [facility].4.Fill in the required orr to create your account. To access your account, visit [employer]. Click the blue button labeled "Access Patient Portal" and then log in with the username and password that you created in the steps above. You will be able to view your test results, lab results, a summary of your visits, upcoming appointments and more. There is also a convenient messaging option where you can send secure messages to your p CREDANT Technologiesvider. In addition, you will have the ability to download any documents or summaries to your computer and/or send the information securely to a physician. Remember that your healthcare information is confidential, so carefully consider who you will allowto register on the [facility] Patient Portal for access to your information. You can also access the [facility] Patient Portal on the [employer]where frida. Simply click on "Patient Portal" and then log into your account. If you would like to receive a full copy of your medical records, please contact the [facility] Medical Records Department by calling [phone], Monday through Monday between 8 a.m. and [...] Call your local pharmacy or go to [email or web address] to find one close to you.3.Make use of household items: Use cat litter or old coffee grounds to dispose medications if other options arenot available. Mix your drugs with these household products, seal them in an airtight container andthrow it into the garbage. Call [facility]: [phone] to be sure your drugs can be [...] aware that I should contact my doctor. 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 Preoperative Information Time of last food or [...] Problem list: Medical Anxiety / SNOMED CT 52988984 / Confirmed Atopic dermatitis / SNOMED CT 04659056 / Confirmed BMI 45.0-49.9, adult / SNOMED CT 5085710760 / Confirmed Diabetes mellitus / SNOMED CT 531175662 / Confirmed Hypertension / SNOMED CT 8390208989 / Confirmed Insomnia / SNOMED CT 355324997 / Confirmed Morbid obesity / SNOMED CT 601417882 / Confirmed Chewing tobacco nicotine dependence / SNOMED CT 23672782 / Confirmed Obstructive sleep apnea / SNOMED CT 464648200 / Confirmed Screening for ischemic heart disease / SNOMED CT 709571124 / Confirmed Persistent atrial fibrillation / SNOMED CT 4473424473 / Confirmed Prediabetes / SNOMED CT 4042963195 / Confirmed, Active Problems (16) Anxiety Atopic [...] History: History is unknown. Procedure history: Elbow ([id number]). Comments: 07/11/2022 8:26 EST - Bharath, SHAHEEN [...] patch - 12/13/2022 14:44 - Naresh Mcgregor HOP STRAINER Nutrition/Health 12/23/2022 Caffeine intake amount: pop 3 daily . Physical Examination Vital Signs 12/23/2022 6:34 EDT Temperature Temporal Artery 35.3 DegC Peripheral Pulse Rate 85 bpm Respiratory Rate 20 br/min Systolic Blood Pressure Non-Invasive 103 mmHg Diastolic Blood Pressure Non-Invasive 76 mmHg Vital Signs(last 24 hrs) Last Charted Resp Rate 20 br/min (DEC 23 06:34) QIA712 mmHg (DEC 23 06:34) DBP76 mmHg (DEC 23 06:34) Measurements from flowsheet : Measurements 12/23/2022 6:37 EDT Height 175.3 cm Storden Body Weight 70.74 kg 12/23/2022 6:34 EDT Height 175.3 cm Admission Weight 144 kg Storden Body Weight 70.74 kg Admission Body Mass [...] Surgeon SN - CAt - Role Performed Technology Specialist 1 SN - CAt - Role Performed TEAM OTR TRUCK DRIVER 12/23/2022 6:49 EDT Wrist Left 12/23/2022 20 [...] Person #1 We May Share YAW OSPINA [phone] Designated Person #1 Relationship Sibling Height 175.3 cm Storden Body Weight 70.74 kg Status N/A Sensory [...] evident Teaching Method Explanation Preferred Spoken Language Georgian Preferred Written Language Georgian Information Given by Patient Patient's Current Physicians Patient's Current Physicians Discharge To, Anticipated Home independently Prev Test Positive/Diagnosis w/COVID-19 No Current Quarantine/Isolated any Illness No Any Contact with Sick Animals/Birds No Traveled Anywhere in Last 30 Days No N/A Personal Devices, Patient Valuables None Admission Note-Nursing Procedure/Therapy Intake 12/23/2022 6:34 EDT Height 175.3 cm Admission Weight 144 kg Storden Body Weight 70.74 kg Admission Body Mass [...] Ordered (In Progress) . Assessment and Plan [place] Society of Anesthesiologists (ASA) physical status classification: Class III. Anesthetic Preoperative Plan Anesthetic technique: MAC. Informed consent: signed by patient. Digitally Signed by BRAULIO WRIGHT on 12/23/2022 07:21 AM [facility]06-01-2023 Hospital Discharge instructions Patient Education 10/27/2022 06:39:29 [...] Swelling, pain or redness in one leg 4555-1989 The Cr[employer]. [address] [place] [address]. All rights reserved. This information is not [...] very fast heart rate Loss of consciousness 8417-[address] [employer] [place] [address]. All rights reserved. This information is not intended as a substitute for professional medical care. Always follow yourhealthcare professional's instructions. Follow Up Care 10/27/2022 05:02:35 With:GIRMA CORREA Address: [address] [facility] [place] [address] [phone] Business (1) When:2-4 days Comments:Follow close with your doctor, continue medications, return if any worsening or concerning symptoms. [facility] 06-01-2023 Note Discharge Instructions Thank you for allowing [facility] to assist you with your healthcare needs. [...] or concerning symptoms. Where: [address] [place] [place] [address] [phone] Business (1) Allergies NKA Medications Please ask [...] Swelling, pain or redness in one leg 4181-0228 The [employer]. [address] [place] [address], [place] [address]. All rights reserved. This information is not [...] very fast heart rate Loss of consciousness 5246-7355 [employer]. [address] [place] [address]. All rights reserved. This information is not intended as a substitute for professional medical care. Always follow yourhealthcare professional's instructions. Additional Information VACCINATE! IT SAVES LIVES! Members of the community who have not yet received the COVID-19 vaccine and would like to receive it can visit one of [facility] vaccine clinics. There are many vaccine clinic locations within the [facility]. For locations and available times, please visit www.gettheshot.coronavirus.[place].gov/. It is important to note that some COVID mobile vaccine clinics are held outdoors and may be canceled in rainy or stormy conditions. To learn more about pediatric vaccinations (ages 5-11), we invite you to visit the [facility] webpage. https://www.[facility].org/pages/3913-Ewfrj-Hvhbbgbowbh-Dtfbrqjibg-Cvyqx-Tyn stions.htmlTo learn more about the COVID-19 vaccine, we invite you to visit the CDC website for a list of frequently asked questions. https://www.cdc.gov/coronavirus/2019-ncov/vaccines/faq.html [facility] Patient Portal Access Instructions: Stay connected with your healthcare team and access your personal medical information anytime with the [facility] Patient Portal. If you would like a full copy of your medical records please contact the [facility] Medical Records Department Monday through Monday between 8a.m. and 4:30p.m. Please follow the directions below to access the portal: 1.Access the email account you provided upon registration to the [facility].2.Look for an invitation email from [facility].3.Open the email and access the invitation link: Accept Invitation to [facility]4.Fill in the required orr to create your account. Sign into www.[employer] with your username and password that you [...] you will allow to register on the [facility] Patient Portal for access to your information. You can also access the [facility] Patient Portal on the [employer] frida. Simply click on "Health Records" under "HealthData" and then click on the Mov[employer] Mobile logo. HOW TO SAFELY DISPOSE OF PRESCRIPTION [...] Call your local pharmacy or go to [email or web address] to find one close to you.3.Make use of household items: Use cat litter or old coffee grounds to dispose medications if other options arenot available. Mix your drugs with these household products, seal them in an airtight container andthrow it into the garbage. Call [facility]: [phone] to be sure your drugs can be [...] aware that I should contact my doctor. Patient/Conveyor System Dispatcher Signature: Date/Time: Relationship to Patient: Witness Name/Signature: Date/Time: [facility]06-01-2023 Note ORIGINAL EXAMINATION: ONE XRAY VIEW OF [...] 10/27/2022 6:14:45 AM Ordering Provider: OLLIE BROOKE [facility]06-01-2023 Note ORIGINAL EXAMINATION: ONE XRAY VIEW OF [...] Date: 10/27/2022 6:14:45 AM Ordering Provider: [id number] Hospital Discharge instructions Patient Education 10/25/2022 01:25:48 [...] your body to your neck and face. 9981-2409 The [employer]. [address] [place] [address]. All rights reserved. This information is not [...] vision Extreme drowsiness, confusion, dizziness, or fainting 8266-3605 [employer]. [address] [place] [address]. All rights reserved. This information is not intended as a substitute for professional medical care. Always follow [facility] professional's instructions. 10/25/2022 01:25:29 Chest Pain, [...] Swelling, pain or redness in one leg 9393-4642 [employer]. [address] [place] [address]. All rights reserved. This information is not [...] veins, fluid leaks out into the tissues. [place] then causes that fluid to move to [...] away Feeling much more tired than usual 4341-0358 The [employer]. [address] [place] [address]. All rights reserved. This information is not intended as a substitute for professional medical care. Always follow yourhealthcare professional's instructions. Follow Up Care 10/24/2022 23:09:33 With:Call Physician Referral Address:Unknown When:2-4 days Comments:Call for referral to establish a primary care doctor you can see on a regular basis. With:SADE STRAUSS Address: [address] [place] [address] [address] [facility] [place] [phone] Business (1) When:2-4 days Comments:Schedule an appointment to establish a assessment clinician you can see on a regular basis.Double your doseof Lasix from 20 mg once a day to 20 mg twice a day.Continue all other routine medications including the ones you were recently prescribed from [place].Use potassium supplement and sleep aid (trazodone) as prescribed.Return to the ED if symptoms worsen. [facility] 05-30-2023 Note Discharge Instructions Thank you for allowing [facility] to assist you with your healthcare needs. [...] Why: Schedule an appointment to establish a assessment clinician you can see on a regular basis. [...] [facility] [address] [facility] [place] [phone] Business (1) Allergies NKA Medications Please ask [...] may report side effects to FDA at 5-372-BNL-2796. What other drugs will affect potassium chloride? Tell your doctor about all your other medicines, especially: medicine to prevent organ transplant rejection; a diuretic or 'water pill'; or heart or blood pressure medication. This list is not complete. Other drugs may affect potassium chloride, including prescription and wixh-elw-akdnhbl medicines, vitamins, and herbal products. Not all [...] to ensure that the information provided by Almondy. ('Multum') is accurate, up-to-date, and complete, but no guarantee is made to that effect. Drug information contained herein may be time sensitive. Sounder information has been compiled for use by healthcare practitioners and consumers in the [place] and therefore Sounder does not warrant that uses outside of the [place] are appropriate, unless specifically indicated otherwise. Blog Sparks NetworkMedPageTodays drug information does not endorse drugs, diagnose patients or recommend therapy. TeePee Gamess drug information isan informational resource designed to [...] effective or appropriate for any given patient. [facility] [employer] does not assume any responsibility for any aspect of healthcare administered with the aid of information Sounder provides. The information contained herein is not intended to cover all possible uses, directions, precautions, warnings, drug interactions, allergic reactions, or adverse effects. If you have questions about the drugs you are taking, check with your doctor, nurse or pharmacist. Copyright 4026-4184 [facility] [employer]. Version: 14.. Revision Date: 10/24/2019. trazodone (TRAZ [...] may report side effects to FDA at 2-979-BQM-8033. What other drugs will affect trazodone? Using [...] drugs may affect trazodone. This includes prescription dsxwygs-for-fqmfqhu medicines, vitamins, and herbal products. Not all [...] to ensure that the information provided by Almondy. ('Multum') is accurate, up-to-date, and complete, but no guarantee is made to that effect. Drug information contained herein may be time sensitive. Sounder information has been compiled for use by healthcare practitioners and consumers in the [place] and therefore Sounder does not warrant that uses outside of the [place] are appropriate, unless specifically indicated otherwise. T[employer]ee [employer] drug information does not endorse drugs, diagnose patients or recommend therapy. TeePee Gamess drug information isan informational resource designed to [...] effective or appropriate for any given patient. Sounder does not assume any responsibility for any aspect of healthcare administered with the aid of information Sounder provides. The information contained herein is not intended to cover all possible uses, directions, precautions, warnings, drug interactions, allergic reactions, or adverse effects. If you have questions about the drugs you are taking, check with your doctor, nurse or pharmacist. Copyright 7011-8791 Almondy. Version: 10. Revision Date: 11/09/2020. Education Materials [...] your body to your neck and face. 9564-5341 [employer]. [address] [place] [address]. All rights reserved. This information is not [...] vision Extreme drowsiness, confusion, dizziness, or fainting 4530-4323 [employer]. [address] [place] [address]. All rights reserved. This information is not [...] Swelling, pain or redness in one leg 0905-2481 [employer]. [address] [place] [address]. All rights reserved. This information is not [...] veins, fluid leaks out into the tissues. [place] then causes that fluid to move to [...] away Feeling much more tired than usual [phone] [employer]. [address] [place] [address]. All rights reserved. This information is not intended as a substitute for professional medical care. Always follow yourhealthcare professional's instructions. Additional Information VACCINATE! IT SAVES LIVES! Members of the community who have not yet received the COVID-19 vaccine and would like to receive it can visit one of [facility] vaccine clinics. There are many vaccine clinic locations within the [facility]. For locations and available times, please visit www.[email or web address].[place].gov/. It is important to note that some COVID mobile vaccine clinics are held outdoors and may be canceled in rainy or stormy conditions. To learn more about pediatric vaccinations (ages 5-11), we invite you to visit the [facility] webpage. https://www.[facility].org/pages/2758-Ekaiw-Rsuyhixfqnj-Wtlnmxgrcg-Mekgv-Xhx stions.htmlTo learn more about the COVID-19 vaccine, we invite you to visit the CDC website for a list of frequently asked questions. https://www.cdc.gov/coronavirus/2019-ncov/vaccines/faq.html [facility] Patient Portal Access Instructions: Stay connected with your healthcare team and access your personal medical information anytime with the [facility] Patient Portal. If you would like a full copy of your medical records please contact the [facility] Medical Records Department Monday through Monday between 8a.m. and 4:30p.m. Please follow the directions below to access the portal: 1.Access the email account you provided upon registration to the [facility].2.Look for an invitation email from [facility].3.Open the email and access the invitation link: Accept Invitation to [facility]4.Fill in the required orr to create your account. Sign into www.[employer] with your username and password that you [...] you will allow to register on the [facility] Patient Portal for access to your information. You can also access the [facility] Patient Portal on the [employer]. Simply click on "Health Records" under "[employer] (Droppy)" and then click on the Larry logo. [...] Call your local pharmacy or go to [email or web address] to find one close to you.3.Make use of household items: Use cat litter or old coffee grounds to dispose medications if other options arenot available. Mix your drugs with these household products, seal them in an airtight container andthrow it into the garbage. Call [facility]: [phone] to be sure your drugs can be [...] aware that I should contact my doctor. Patient/Conveyor System Dispatcher Signature: Date/Time: Relationship to Patient: Witness Name/Signature: Date/Time: [facility]05-30-2023 Note ORIGINAL EXAMINATION: CTA OF THE CHEST [...] aortic dissection. Lungs/pleura: Small bilateral pleural effusions sole layer hand dependently. There is more fluid on the [...] 10/25/2022 1:09:48 AM Ordering Provider: [facility]05-30-2023 Note ORIGINAL EXAMINATION: CTA OF THE [...] aortic dissection. Lungs/pleura: Small bilateral pleural effusions sole layer hand dependently. There is more fluid on the [...] 10/25/2022 1:09:48 AM Ordering Provider: [facility]05-29-2023 Note ORIGINAL [...] 10/24/2022 11:56:09 PM Ordering Provider: [facility]05-29-2023 Note ORIGINAL [...] Date: 10/24/2022 11:56:09 PM Ordering Provider: DEMI Nicklaus [facility]05-28-[address] Clemens [facility] October 23, 2022 10:40am Note Date/Time October 23, 2022 6:48a m [facility] Medical Records Department [address] [place] [address] Emergency Department Summary 10/23/22 MR#: [id number] Acct: [id number] Name: CARLOS ALBERTO KELLEY Jr. Rep #:[id number] : 1970 52 From: Jameel Brown DO [...] gets short of breath. Patient states his assessment clinician is a Dr. Barr out of [facility]. [facility] Medical History (Updated 10/23/22 @ 06:09 by [...] IV and his heart rate is now [id number]. CBC shows no leukocytosis. Hemoglobin macular stable. [...] % (Auto) 67.9 Lymph % (Auto) 19.0 [place] % (Auto) 9.6 Eos % (Auto) 2.4 [...] your Primary Care Provider. Call [facility] ([phone]) or report to the closest Emergency Room. Call 911 if necessary. 10/23/22 07 <Electronically signed by Jameel Brown DO> Cosigner Signature (if applicable): CC: ZACARIAS COHN ~ Signed ADDENDUM by Dr. Jose A Clemens MD on 10/23/22 at 0759 Patient care was transferred to [place] at 0710. Patient presented because of palpitations discomfort right side of his chest with shortness of breath. Patient does have history of congestive heart failure and atrial fibrillation. He has relocated from [place]. He does not have a local assessment clinician. Patient has not taken his Xarelto for [...] (if applicable): cc: ZACARIAS COHN ~* Signed [facility] Work Phone: [phone] Hospital Discharge instructions Patient Education 07/15/2022 21:17:24 [...] temperature. Use toothpaste made for sensitive teeth. Napoleon gently up and down instead of sideways. Brushing sideways can wear away root surfaces if they are exposed. If your tooth is chipped or cracked, or if there is a large open cavity, put oil of cloves directlyon the tooth to relieve pain. You can buy oil of cloves at drugstores. Some pharmacies carry an ctqj-dka-yholkwo "toothache kit." This contains a paste that you can put on the exposed tooth to make it less sensitive. Put a cold pack on your jaw over the sore area to help reduce pain. You may use orlh-ymy-ibajjal medicine to ease pain, unless your doctor [...] healthcare provider Pus drains from the tooth [phone] [employer]. [address] [place] [address], [place] [address]. All rights reserved. This information is not intended as a substitute for professional medical care. Always follow yourhealthcare professional's instructions. Follow Up Care 07/15/2022 20:40:26 With:Dental Referral List Address: When:2-4 days [facility] 02-17-2023 Note Discharge Instructions Thank you for allowing [facility] to assist you with your healthcare needs. [...] When Why Instructions Last Dose New acetaminophen-hydrocodone (Kewadin 325- 5 mg oral tablet) 1 tab(s) [...] temperature. Use toothpaste made for sensitive teeth. Napoleon gently up and down instead of sideways. Brushing sideways can wear away root surfaces if they are exposed. If your tooth is chipped or cracked, or if there is a large open cavity, put oil of cloves directlyon the tooth to relieve pain. You can buy oil of cloves at [employer]. Some pharmacies carry an jeux-ias-skrfzuh "toothache kit." This contains a paste that you can put on the exposed tooth to make it less sensitive. Put a cold pack on your jaw over the sore area to help reduce pain. You may use fjqg-skw-dcjkemt medicine to ease pain, unless your doctor [...] healthcare provider Pus drains from the tooth [phone] [employer]. [address] [place] [address]. All rights reserved. This information is not intended as a substitute for professional medical care. Always follow yourhealthcare professional's instructions. Additional Information VACCINATE! IT SAVES LIVES! Members of the community who have not yet received the COVID-19 vaccine and would like to receive it can visit one of [facility] vaccine clinics. There are many vaccine clinic locations within the [facility]. For locations and available times, please visit www.[email or web address].[place].gov/. It is important to note that some COVID mobile vaccine clinics are held outdoors and may be canceled in rainy or stormy conditions. To learn more about pediatric vaccinations (ages 5-11), we invite you to visit the [facility] webpage. https://www.[facility].org/pages/9779-Zbzku-Omyejzlvcsp-Zhpmilulmz-Slpvv-Knw stions.htmlTo learn more about the COVID-19 vaccine, we invite you to visit the CDC website for a list of frequently asked questions. https://www.cdc.gov/coronavirus/2019-ncov/vaccines/faq.html [facility] Patient Portal Access Instructions: Stay connected with your healthcare team and access your personal medical information anytime with the [facility] Patient Portal. If you would like a full copy of your medical records please contact the [facility] Medical Records Department Monday through Monday between 8a.m. and 4:30p.m. Please follow the directions below to access the portal: 1.Access the email account you provided upon registration to the [facility].2.Look for an invitation email from [facility].3.Open the email and access the invitation link: Accept Invitation to [facility]4.Fill in the required orr to create your [...] you will allow to register on the [facility] Patient Portal for access to your information. You can also access the [facility] Patient Portal on the [employer]. Simply click on "Health Records" under "HealthData" [...] Call your local pharmacy or go to [email or web address] to find one close to you.3.Make use of household items: Use cat litter or old coffee grounds to dispose medications if other options arenot available. Mix your drugs with these household products, seal them in an airtight container andthrow it into the garbage. Call [facility]: [phone] to be sure your drugs can be [...] aware that I should contact my doctor. Patient/Conveyor System Dispatcher Signature: Date/Time: Relationship to Patient: Witness Name/Signature: Date/Time: [facility]02-13-2023 Hospital Discharge instructions Patient Education 07/11/2022 09:00:28 [...] alternate ice and heat. You may use ssag-dtk-geezwcw pain medicine to control pain, unless another [...] hand becomes cold, blue, numb, or tingly [phone] [employer]. [address] [place] [address], [place] [address]. All rights reserved. This information is not intended as a substitute for professional medical care. Always follow yourhealthcare professional's instructions. Follow Up Care 07/11/2022 08:20:34 With:DO MELISSA COHN DO Address: [address] [place] [address] [address] [place] [address] When:3-7 days With:Go to emergency room if symptoms worsen Address:Unknown When:2-4 days [facility] 02-13-2023 Note Discharge Instructions Thank you for allowing [facility] to assist you with your healthcare needs. [...] Following Appointments Follow Up with DO MELISSA CHON DO When Within 3-7 days Where: [address] [place] [address] [address] [place] [address] Follow Up with Go to [...] alternate ice and heat. You may use tida-yif-uekjyks pain medicine to control pain, unless another [...] hand becomes cold, blue, numb, or tingly [phone] [employer]. [address] [place] [address], [place] [id number]. All rights reserved. This information is not intended as a substitute for professional medical care. Always follow yourhealthcare professional's instructions. Additional Information VACCINATE! IT SAVES LIVES! Members of the community who have not yet received the COVID-19 vaccine and would like to receive it can visit one of [facility] vaccine clinics. There are many vaccine clinic locations within the [facility]. For locations and available times, please visit www.[email or web address]. It is important to note that some COVID mobile vaccine clinics are held outdoors and may be canceled in rainy orstormy conditions. To learn more about pediatric vaccinations (ages 5-11), we invite you to visit the [facility] webpage. https://www.[facility].org/pages/0817-Zpurq-Zeblyyubypl-Usqvxqqxng-Obmam-Sjl stions.htmlTo learn more about the COVID-19 vaccine, we invite you to visit the [facility] website for a list of frequently asked questions. https://[email or web address]/assets/Mrcaausu-vui-Gmrtesdz/mnilr-Kxquzrh-Zkorfdknte _Asked-Questions.pdf [facility] Patient Portal Access Instructions: Stay connected with your healthcare team and access your personal medical information anytime with the [facility] Patient Portal. If you would like a full copy of your medical records please contact the [facility] Medical Records Department Monday through Monday between 8a.m. and 4:30p.m. Please follow the directions below to access the portal: 1.Access the email account you provided upon registration to the [facility].2.Look for an invitation email from [facility].3.Open the email and access the invitation link: Accept Invitation to [facility]4.Fill in the required orr to create your account. Sign into www.[employer] with your username and password that you [...] you will allow to register on the [facility] Patient Portal for access to your information. You can also access the [facility] Patient Portal on the [employer]. Simply click on "Health Records" under "HealthData" and then click on the [employer] logo. HOW TO SAFELY DISPOSE OF PRESCRIPTION [...] Call your local pharmacy or go to [email or web address] to find one close to you.3.Make use of household items: Use cat litter or old coffee grounds to dispose medications if other options arenot available. Mix your drugs with these household products, seal them in an airtight container andthrow it into the garbage. Call [facility]: [phone] to be sure your drugs can be [...] aware that I should contact my doctor. Patient/Conveyor System Dispatcher Signature: Date/Time: Relationship to Patient: Witness Name/Signature: Date/Time: [facility]02-13-2023 Note ORIGINAL EXAMINATION: THREE XRAY VIEWS OF [...] 07/11/2022 8:51:46 AM Ordering Provider: MALORIE PEGUERO [facility]02-13-2023 Note ORIGINAL EXAMINATION: THREE XRAY VIEWS OF [...] Sign Date: 07/11/2022 8:51:46 AM Ordering Provider: [facility]09-12-2022 Note [address] [place] [address] [id number] PERSONAL HISTORY AND PHYSICAL : Signed Name: CARLOS ALBERTO KELLEY JR Lucian MRUN: [id number] : 1970 Loc: ENDO Age / Sex: 51/ M Adm Status: PRE SDC Adm Date:02/15/22 Room/Bed: A 51-year-old patient of Zacarias Ramoston in [place], who comes to discuss endoscopy. He has [...] Date/Time: 02/07/22 1659 Transcribed Date/Time: 02/07/22 1716[facility] Anesthesiology Consult note* CIRILO MCDONOUGH DO: PERFORM, SIGN, VERIFY Event Display: Anesthesiology Consultation Authored Date: [id number] Patient: CARLOS ALBERTO KELLEY Age: 53 years [...] device, # 1 EA, 0 Refill(s), Pharmacy: [facility], 177.8, cm, 11/28/23 13:54:00 EDT, Height, 151.4, kg, 11/28/23 13:54:00 EDT, Dosin... Blood Glucose Test Strips: See Instructions, 1 bottle of 100 Test once daily, # 1 EA, 11 Refill(s), Pharmacy: [facility], 177.8, cm, 11/28/23 13:54:00 EDT, Height, 151.4, kg, 11/28/23 13:54:00 EDT, Dosing Weight FLUoxetine 20 mg oral capsule: Dose : 20 mg = 1 cap(s), Oral, qDay, # 30 cap(s), 3 Refill(s), Pharmacy: [facility], 177.8, cm, 11/28/23 13:54:00 EDT, Height, kg, 11/28/23 13:54:00 EDT,Dosing Weight Lancets: See Instructions, qs 1 month supply Test once daily, # 1 EA, 11 Refill(s), Pharmacy: [facility], 177.8, cm, 11/28/23 13:54:00 EDT, Height, 151.4, kg, 11/28/23 13:54:00 EDT, Dosing Weight Lasix 40 mg oral tablet: See Instructions, 1 tab in AM and 0.5 tab in PM, # 135 tab(s), 3 Refill(s), Pharmacy: [facility], 177.8, cm, 11/28/23 13:54:00 EDT, Height, kg, 11/28/23 13:54:00 EDT, Dosing Weight Symbicort 80 mcg-4.5 mcg/inh Inhaler: Dose = 2 puff(s), Inhalation, BID, # 10.2 gram(s), 3 Refill(s), Pharmacy: [facility], 177.8, cm, 11/28/23 13:54:00 EDT, [...] chew, # 180 tab(s), 3 Refill(s), Pharmacy: [facility], Shortness of breath, 177.8, cm, 11/28/23 13:54:00 EDT, Height, kg, 11/28/23 13:54:00 EDT, Dosing Weight Trulicity Pen 1.5 mg/0.5 mL subcutaneous solution: Dose : 1.5 mg =, Subcutaneous, qWeek, sent in absence of PCP, # 4 EA, 3 Refill(s), Pharmacy: [facility], 177.8, cm, 11/28/23 13:54:00EDT, Height, kg, 11/28/23 13:54:00 EDT, Dosing Weight Vistaril 25 mg oral capsule: Dose : 25 mg = 1 cap(s), Oral, QID, PRN as needed for anxiety, X 30 day(s), # 120 cap(s), 5 Refill(s), 06/09/24 16:10:00 EST, Pharmacy: [facility], 177.8, cm, 11/28/23 13:54:00 EDT, Height, kg, 11/28/23 13:54:00 EDT, Dosing Weight Xarelto 20 mg oral tablet: Dose : 20 mg = 1 tab(s), Oral, qHS, # 90 tab(s), 3 Refill(s), Pharmacy: [facility], 177.8, cm, 11/28/23 13:54:00 EDT, Height, 151.4, kg, 11/28/23 13:54:00 EDT, Dosing Weight allopurinol 100 mg oral tablet: Dose : 100 mg = 1 tab(s), Oral, qDay, # 90 tab(s), 3 Refill(s), Pharmacy: [facility], 177.8, cm, 11/28/23 13:54:00 EDT, Height, kg, 11/28/23 13:54:00 EDT, Dosing Weight cetirizine 10 mg oral tablet: Dose : 10 mg = 1 tab(s), Oral, Daily, # 90 tab(s), 3 Refill(s), Pharmacy: [facility], 177.8, cm, 11/28/23 13:54:00 EDT, [...] meal., # 180 cap(s), 3 Refill(s), Pharmacy: [facility], 177.8, cm, 11/28/23 13:54:00 EDT, Height, kg, 11/28/23 13:54:00 EDT, Dosing Weight rosuvastatin 20 mg oral tablet: Dose : 20 mg = 1 tab(s), Oral, Daily, # 100 tab(s), 3 Refill(s), Pharmacy: [facility], 177.8, cm, 11/28/23 13:54:00 EDT, Height, kg, 11/28/23 13:54:00 EDT, Dosing Weight sacubitril-valsartan 49 mg-51 mg oral tablet: Dose = 1 tab(s), Oral, BID, # 180 tab(s), 3 Refill(s), Pharmacy: [facility], 177.8, cm, 11/28/23 13:54:00 EDT, Height, kg, 11/28/23 13:54:00 EDT, Dosing Weight spironolactone 25 mg oral tablet: Dose : 25 mg = 1 tab(s), Oral, qDay, # 90 tab(s), 3 Refill(s), Pharmacy: [facility], 177.8, cm, 11/28/23 13:54:00 EDT, Height, kg, 11/28/23 13:54:00 EDT, Dosing Weight tiZANidine 2 mg oral tablet: Dose : 2 mg = 1 tab(s), Oral, q8h, PRN as needed for muscle spasm, # 90 tab(s), 2 Refill(s), Pharmacy: [facility], 177.8, cm, 11/28/23 13:54:00 EDT, Height, kg, 11/28/23 13:54:00 EDT, Dosing Weight traZODone 100 mg oral tablet: Dose : 100 mg = 1 tab(s), Oral, qHS, # 90 tab(s), 3 Refill(s), Pharmacy: [facility], 177.8, cm, 11/28/23 13:54:00 EDT, [...] list: Medical Asthma exacerbation / SNOMED CT 7515763483 / Confirmed Anxiety / SNOMED CT 99004052 / Confirmed Atopic dermatitis / SNOMED CT 79159009 / Confirmed BMI 45.0-49.9, adult / SNOMED CT 7411498928 / Confirmed Cardiomyopathy / SNOMED CT 362382616 / Confirmed Diabetes mellitus / SNOMED CT 927851606 / Confirmed Generalized anxiety disorder / SNOMED CT 22018554 / Confirmed Hyperlipidemia / SNOMED CT 47868073 / Confirmed Hypertension / SNOMED CT 1793082972 / Confirmed Insomnia / SNOMED CT 265677845 / Confirmed Moderate asthma / SNOMED CT 6726879090 / Confirmed Morbid obesity / SNOMED CT 893847313 / Confirmed Chewing tobacco nicotine dependence / SNOMED CT 17250269 / Confirmed Obstructive sleep apnea / SNOMED CT 904801039 / Confirmed Right knee pain / SNOMED CT 4686017552 / Confirmed Paroxysmal atrial fibrillation / SNOMED CT 209708921 / Confirmed Screening for ischemic heart disease / SNOMED CT 130988739 / Confirmed Screening for colon cancer / SNOMED CT 603267845 / Confirmed Prediabetes / SNOMED CT 9342208978 / Confirmed Right flank pain / SNOMED CT 513262013 / Confirmed Type 2 diabetes mellitus with hemoglobin A1c goal of less than 7.0% / SNOMED CT 817738541 / Confirmed Wheezing / SNOMED CT 22387300 / Confirmed, Active Problems (26) Anxiety Asthma [...] Mother Grandparent Stroke Father Procedure history: Cardioversion ([id number]) on 12/23/2022 at 52 Years. Echocardiogram ([id number]) on 11/11/2022 at 52 Years. Comments: 03/20/2023 [...] right atrial pressure is 15 mm Hg [facility] ([id number]). Comments: 07/11/2022 8:26 SHAHEEN Nunez - right [...] On and Limits Checked Nail Bed Color [place] Capillary Refill < 2 seconds Heart Sounds [...] Elimination Voiding, no difficulties All Extremity Description [place] Skin Temperature Warm Temperature All Extremities Warm Skin Description [place], Dry Skin Integrity Intact Skin Turgor Non-Elastic Mucous Membrane Color [place] Mucous Membrane Description Moist Neurological Language Able to speak clearly Neurological Symptoms Patient denies Gait Unable to assess Extremity Movement Equal Swallowing Difficulty None Characteristics of Communication Appropriate Characteristics of Speech Clear Facial Symmetry Symmetric Level of Consciousness Alert Aspiration Risk None Eye Opening Response [place] Spontaneously Best Motor Response [place] Obeys simple commands Best Verbal Response [place] Oriented Luis Felipe Coma Score 15 CLARA [...] On and Limits Checked Nail Bed Color [place] Capillary Refill < 2 seconds Heart Sounds ICU S1S2 Heart Rhythm Irregular Cardiac Rhythm Sinus rhythm Monitoring Lead II, V5/MCL5 AR Interval 0.16 second(s) QRS Duration 0.08 second(s) [...] Elimination Voiding, no difficulties All Extremity Description [place] Skin Temperature Warm Temperature All Extremities Warm Skin Description [place], Dry Skin Integrity Intact Skin Turgor Non-Elastic Mucous Membrane Color [place] Mucous Membrane Description Moist Neurological Language Able to speak clearly Neurological Symptoms Patient denies Gait Unable to assess Extremity Movement Equal Swallowing Difficulty None Characteristics of Communication Appropriate Characteristics of Speech Clear Facial Symmetry Symmetric Level of Consciousness Alert Aspiration Risk None Eye Opening Response [place] Spontaneously Best Motor Response Luis Felipe Obeys simple commands Best Verbal Response Luis Felipe Oriented [place] Coma Score 15 CLARA Yes Strength All [...] Notify date/time 01/31/2024 22:20 Provider Notified MILY MAUERRTOP CLEANER Notification Method Pager Information Communicated Medication request [...] On and Limits Checked Nail Bed Color [place] Capillary Refill < 2 seconds Heart Sounds [...] Movement Makes facial grimaces All Extremity Description [place] Skin Temperature Warm Temperature All Extremities Warm Skin Description [place], Dry Skin Integrity Intact Skin Turgor Non-Elastic Mucous Membrane Color [place] Mucous Membrane Description Moist Sensory Perception [place] [...] commands Best Verbal Response Luis Felipe Oriented [place] Coma Score 15 CLARA Yes Left Pupil [...] On and Limits Checked Nail Bed Color [place] Capillary Refill < 2 seconds Heart Sounds [...] intact Skin Turgor Non-Elastic Mucous Membrane Color [place] Mucous Membrane Description Moist Neurological Language Able to speak clearly Neurological Symptoms Patient denies Extremity Movement Equal Swallowing Difficulty None Characteristics of Communication Appropriate Characteristics of Speech Clear Facial Symmetry Symmetric Level of Consciousness Alert Aspiration Risk None Eye Opening Response [place] Spontaneously Best Motor Response [place] Obeys simple commands Best Verbal Response [place] Oriented [place] Coma Score 15 CLARA Yes Left Pupil [...] of Bed Elevated 30 01/31/2024 15:38 EDT [facility] Current Living Situation I have a steady place to live [facility] Current Issues Living Environment None [facility] Worried Food Running Out P12M Never true [facility] Food Gone, No Money To Buy P12M Never true [facility] No Transport Med/Appt/Work P12M No [facility] Utilities Threaten Shut Off P12M No [facility] Anyone Physically Hurt You Never (1) C Anyone Insult Or Talk Down To You Never (1) C Anyone Threaten You With Harm Never (1) [facility] Anyone Scream Or Curse At You Never (1) [facility] Safety Total Score 4 Living Situation Lives with family Discharge To, Anticipated Home independently Anticipated Discharge Date 02/02/2024 Transition Planning Note Transition Planning Initial Assessment 01/31/2024 15:36 EDT Primary Care Phone Message Transition of Care sent from [facility] 01/31/2024 14:59 EDT heparin 9,000 unit(s) unit(s) Dextrose 5% Premix Diluent 90 mL mL 01/31/2024 14:43 EDT [place] Body Weight 72.7 kg Home Diet Regular Weight Chg, Unintentional Nutrition Hx Weight stable per bison history Appetite Good Nutrition Plan of Care Dietitian follow up/monitor, Encourage PO feedings, Participate in team conference Nutrition Follow-Up Needed Yes Days until Relief Salesperson Follow Up Seven days Adult Nutrition Initial Assessment/Plan Adult Nutrition Assessment/Plan 01/31/2024 14:22 EDT Transition of Care Note Transition of Care sent from [facility] 01/31/2024 14:00 EDT Hand Right 01/30/2024 20 [...] On and Limits Checked Nail Bed Color [place] Capillary Refill < 2 seconds Heart Rhythm [...] Description Normal for ethnicity Mucous Membrane Color [place] Mucous Membrane Description Moist Hand Right 01/30/2024 [...] On and Limits Checked Nail Bed Color [place] Capillary Refill < 2 seconds Heart Rhythm [...] intact Skin Turgor Non-Elastic Mucous Membrane Color [place] Mucous Membrane Description Moist Continuous IV Infusions [...] Alert Aspiration Risk None Eye Opening Response [place] Spontaneously Best Motor Response [place] Obeys simple commands Best Verbal Response [place] Oriented [place] Coma Score 15 CLARA Yes Left Pupil [...] On and Limits Checked Nail Bed Color [place] Capillary Refill < 2 seconds Heart Rhythm [...] Description Normal for ethnicity Mucous Membrane Color [place] Mucous Membrane Description Moist Continuous IV Infusions [...] On and Limits Checked Nail Bed Color [place] Capillary Refill < 2 seconds Heart Rhythm [...] intact Skin Turgor Non-Elastic Mucous Membrane Color [place] Mucous Membrane Description Moist Continuous IV Infusions [...] Alert Aspiration Risk None Eye Opening Response [place] Spontaneously Best Motor Response [place] Obeys simple commands Best Verbal Response Luis [place] Oriented [place] Coma Score 15 CLARA Yes Left Pupil [...] On and Limits Checked Nail Bed Color [place] Capillary Refill < 2 seconds Heart Rhythm [...] intact Skin Turgor Non-Elastic Mucous Membrane Color [place] Mucous Membrane Description Moist Continuous IV Infusions [...] On and Limits Checked Nail Bed Color [place] Capillary Refill < 2 seconds Heart Rhythm [...] intact Skin Turgor Non-Elastic Mucous Membrane Color [place] Mucous Membrane Description Moist Hand Right 01/30/2024 [...] Alert Aspiration Risk None Eye Opening Response [place] Spontaneously Best Motor Response [place] Obeys simple commands Best Verbal Response Luis [...] EDT Designated Person #1 We May Share [facility] MARILYN OSPINA [phone] Designated Person #1 Relationship Sibling Designated Person #2 We May Share [facility] Designated Person #2 We May Share PHI Designated Person #2 Relationship Significant other Privacy Restrictions Requested None Height 175 cm Height in inches 68.9 inch(es) Admission Weight 149.1 kg Weight Lbs 328 lb [place] Body Weight 70.46 kg BSA Admission 2.55 [...] evident Teaching Method Explanation Preferred Spoken Language Georgian Preferred Written Language Georgian Teaching Evaluation No further teaching needed Safety [...] On and Limits Checked Nail Bed Color [place] Capillary Refill < 2 seconds Heart Sounds [...] intact Skin Turgor Non-Elastic Mucous Membrane Color [place] Mucous Membrane Description Moist Sensory Perception [place] [...] Alert Aspiration Risk None Eye Opening Response [place] Spontaneously Best Motor Response [place] Obeys simple commands Best Verbal Response [place] Oriented [place] Coma Score 15 CLARA Yes Left Pupil [...] explained to patient, Risks and benefits explained [facility] customer operations representative Transferring Physician MD SAMY JONES MD Receiving Facility Accepting Transfer Stacy Rep. of Receiving Facility Accepting Pt Dr. hernandez Date/Time Transfer Accepted 01/30/2024 23:[address] Hernandez Date/Time Physician Accepted Patient 01/30/2024 23:10 Nurse Receiving Report Nora RN Nurse Receiving Report Nora Date/Time Nurse Received Report 01/31/2024 1:43 Date/Time Nurse Received Report 01/31/2024 1:43 Mode of Transfer Ground ambulance Required Personnel for Transfer [place] [facility] Nursing [facility] MICU Discharged to Another [...] 250 mL mL . Assessment and Plan [place] [employer] (ASA) physical status classification: [...] CIRILO MCDONOUGH DO on 02/01/2024 06:26 AM [facility] Discharge summary Author Farzad Camilo [facility] Note Date/Time December 21, 2024 1:02 pm [facility] Medical Records Department [address] [place] [id number] [facility] MR#: [id number] Acct: [id number] Name: CARLOS ALBERTO KELLEY Jr. Rep #:[id number] : 1970 54 From: Farzad mejia MD [...] SERVICES PRIOR TO HIS/HER TRANSFER TO THE [facility]. 12/21/24 0845<Electronically signed by Farzad Camilo MD> [...] tissue disorders Allergies/Procedures Done in Hospital Allergies Iutwufn-MBL-[id number] Reductase Inhibitor Allergy (Mild, Verified 12/20/24 13:07) [...] in before D/C Order can be placed): Long Term Facility 12/21/24 0845 <Electronically signed by Farzad Camilo MD> Cosigner Signature (if applicable): CC: Dr. Yaz Dee MD; Dr. Austin Estrada MD; Dr. Jhonatan Garcia DO ~ [facility] Work Phone: Discharge summary Author Farzad Camilo [facility] Note Date/Time December 21, 2024 11:3 8am [facility] Medical Records Department [address] [place] [address] Discharge Summary 12/21/24 1134 MR#: [id number] Acct: [id number] Name: CARLOS ALBERTO KELLEY Jr. Rep #:[id number] : 1970 54 From: Farzad mejia MD PCP: Dr. Jhonatan Garcia DO Status:ADM BRENNA Location: [place] [address] Providers Date of Admission: 12/20/24 Primary Care [...] Course: Per HPI: CARLOS ALBERTO KELLEY, is [id number] male history of hypertension, gout, cardiomyopathy, GERD, diabetes, depression and anxiety, KOFFI who presented [facility] ED 12/20/2024 for right hand pain, swelling, [...] 76.3 H, Lymph % (Auto) 10.6 L, [place] % (Auto) 10.6 H, Eos % (Auto) [...] (Auto) 68.8, Lymph % (Auto) 15.1 L, [place] % (Auto) 13.4 H, Eos % (Auto) [...] swelling. No significant bony abnormality Reading Location: [id number] D/C Instructions DC O2, CPAP, BIPAP Needs [...] in before D/C Order can be placed): Long Term Facility Charges/Coding Visit Charges Inpatient E&M: 39784 Disch Hosp >30min 12/21/24 1131 <Electronically signed by Farzad Camilo MD> Cosigner Signature (if applicable): CC: Dr. Farzad Camilo MD; Dr. Jhonatan Garcia DO~ Signed [facility] Work Phone: Evaluation + Plan note No data available for this section [facility] Evaluation + Plan note Future Appointments Appointment Date:11/03/2022 09:15:00 AM Scheduled Provider:ZHOU ESPINOSA Location:[facility] Appointment Type:CV WATER TECHNICIAN Appointment Date:11/08/2022 02:00:00 PM Scheduled Provider:GIRMA CORREA Location:[facility] Appointment Type:PC WATER TECHNICIAN Unassigned ED Follow Up [facility] Evaluation + Plan note Future Appointments Appointment Date:11/04/2022 08:45:00 AM Scheduled Provider: Location:[facility] Appointment Type:CV WATER TECHNICIAN Appointment Date:11/08/2022 02:00:00 PM Scheduled Provider:GIRMA CORREA Location:[facility] Appointment Type:PC WATER TECHNICIAN Unassigned ED Follow Up [facility] Evaluation + Plan note Future Appointments Appointment Date:12/13/2022 03:00:00 PM Scheduled Provider:GIRMA CORREA Location:[facility] Appointment Type:PC OV Follow Up [facility] Evaluation + Plan note Future Appointments Appointment Date:02/07/2023 02:30:00 PM Scheduled Provider:GIRMA CORREA Location:[facility] Appointment Type:PC OV [facility] Evaluation + Plan note Future Appointments Appointment Date:06/20/2023 02:30:00 PM Scheduled Provider:GIRMA CORREA Location:[facility] Appointment Type:PC OV Future Scheduled Tests Laboratory* Basic Metabolic Panel 04/01/23 * A1C Hemoglobin 06/09/23 * Lipid Profile 06/09/23 * Complete Metabolic Panel 06/09/23 [facility] Evaluation + Plan note Future Appointments Appointment Date:08/22/2023 12:00:00 PM Scheduled Provider: Location:[facility] Appointment Type:PF PFT w/Bronchodiltor Appointment Date:11/07/2023 02:00:00 PM Scheduled Provider:GIRMA CORREA Location:[facility] Appointment Type:PC OV Future Scheduled Tests Laboratory* Basic Metabolic Panel 04/01/23 [facility] Evaluation + Plan note Future Appointments Appointment Date:11/07/2023 02:00:00 PM Scheduled Provider:GIRMA CORREA Location:[facility] Appointment Type:PC OV Future Scheduled Tests Laboratory* Basic Metabolic Panel 04/01/23 [facility] Evricci + Plan note Future Appointments Appointment Date:06/20/2023 10:00:00 AM Scheduled Provider:GIRMA CORREA Location:[facility] Appointment Type:PC OV Hospital Follow-Up Appointment Date:06/20/2023 02:30:00 PM Scheduled Provider:GIRMA CORREA Location:[facility] Appointment Type:PC OV Appointment Date:07/17/2023 03:15:00 PM Scheduled Provider:ZHOU ESPINOSA Location:[facility] Appointment Type:CV OV Future Scheduled Tests Laboratory* Basic Metabolic Panel 04/01/23 * A1C Hemoglobin 06/09/23 * Lipid Profile 06/09/23 * Complete Metabolic Panel 06/09/23 [facility] Evaluation + Plan note Future Appointments Appointment Date:02/13/2024 03:30:00 PM Scheduled Provider:GIRMA CORREA Location:[facility] Appointment Type:PC Wellness Annual w/Labs Future Scheduled Tests Laboratory* Basic Metabolic Panel 04/01/23 * Prostate Specific Antigen 02/07/24 * A1C Hemoglobin 02/07/24 * Lipid Profile 02/07/24 * Complete Metabolic Panel 02/07/24 [facility] Evaluation + Plan note Future Appointments Appointment Date:03/26/2024 08:00:00 PM Scheduled Provider: Location:[facility] Appointment Type: Sameer Study Appointment Date:05/14/2024 03:00:00 PM Scheduled Provider:GIRMA CORREA Location:[facility] Appointment Type:PC OV Lab Check Future Scheduled Tests Laboratory* Basic Metabolic Panel 02/07/24 * Basic Metabolic Panel 02/19/24 * Basic Metabolic Panel 04/01/23 * Magnesium Level 02/07/24 * A1C Hemoglobin 05/14/24 * Lipid Profile 05/14/24 * Complete Metabolic Panel 05/14/24 [facility] Evaluation + Plan note Future Appointments Appointment Date:04/01/2024 01:00:00 PM Scheduled Provider:DAMIAN SHRESTHA MD Location:[facility] Appointment Type: OV Appointment Date:05/14/2024 03:00:00 PM Scheduled Provider:GIRMA CORREA Location:[facility] Appointment Type: OV Lab Check Future Scheduled Tests Laboratory* Basic Metabolic Panel 02/07/24 * Basic Metabolic Panel 02/19/24 * Basic Metabolic Panel 04/01/23 * Magnesium Level 02/07/24 * A1C Hemoglobin 05/14/24 * Lipid Profile 05/14/24 * Complete Metabolic Panel 05/14/24 [facility] Evaluation + Plan note Future Appointments Appointment Date:02/13/2024 03:30:00 PM Scheduled Provider:GIRMA CORREA Location:[facility] Appointment Type: Wellness Annual w/Labs Future Scheduled Tests Laboratory* Basic Metabolic Panel 02/07/24 * Basic Metabolic Panel 02/19/24 * Basic Metabolic Panel 04/01/23 * Magnesium Level 02/07/24 [facility] Evaluation + Plan note Future Appointments Appointment Date:08/12/2024 03:00:00 PM Scheduled Provider:GIRMA CORREA Location:[facility] Appointment Type:PC Wellness Annual Future Scheduled Tests Laboratory* Basic Metabolic Panel 02/07/24 * Basic Metabolic Panel 02/19/24 * Magnesium Level 02/07/24 [facility] Evaluation + Plan note Future Appointments Appointment [...] Metabolic Panel 08/27/24 * N-Terminal proBNP 08/27/24 [facility] Evaluation noteNo assessment information available [facility] Work Phone: Hospital Discharge instructions Additional Instructions Call Dr. Etienne's office on Monday to be seen later this coming week.[facility] Work Phone: Hospital Discharge instructions No data available for this section [facility] Discharge instructions Additional Instructions Chest x-ray negative. COVID and flu negative. Vapor rubs, humidifier. May use loratadine D that you have at home daily. Cough suppressants as needed. Follow-up with your doctor. Return if any worsening symptoms.[facility] Work Phone: Hospital Discharge instructionsAdditional Instructions Your cardiac workup negative in the ED. Your CT angiogram chest negative for blood clots or any acute findings., Your oxygen dropped down while in the emergency department. Your facility continue oxygen as needed. You have sleep apnea history.[facility] Work Phone: Progress note No data available for this section [facility] Reason for referral (narrative)No reason for referral information availableWRegency Hospital Company Work Phone: Summary note* Valery, HIM Masha L: PERFORM Event Display: Patient Summary Documents Authored Date: [id number] [facility] Edy Summary Purpose Family History No Family [...] October 23, 2022 6 :09am Power of Dietist No October 23, 2022 6:09am Advance Directive Response Recorded Date/ Time Living Will No February 12, 2023 7:08am Power of Dietist No January 7:08am Advance Directive Response Recorded Date/ Time Do you have a Healthcare Power of Dietist? No December 19, 2024 10:20pm Advance Directive Response Recorded Date/ Time Do you have a Healthcare Power of Dietist? No December 19, 2024 10:20pm Do you have a Healthcare Power of Dietist? No December 20, 2024 2:24pm Advance Directive Response Recorded Date/ Time Do you have a Healthcare Power of Dietist? No December 19, 2024 10:20pm Do you have a Healthcare Power of Dietist? No December 20, 2024 9:23pm Chief Complaint [...] section and content) DATE CREATED AUTHOR 02/15/2021 [facility] DATE CREATED AUTHOR AUTHOR'S ORGANIZ ATION 08/25/2021 [facility] DATE CREATED AUTHOR AUTHOR'S ORGANIZ ATION 2021 [facility] DATE CREATED AUTHOR AUTHOR'S ORGANIZ ATION 06/07/2022 [facility] DATE CREATED AUTHOR AUTHOR'S ORGANIZ ATION 08/17/2022 [facility] DATE CREATED AUTHOR AUTHOR'S ORGANIZ ATION 10/13/2023 [facility] DATE CREATED AUTHOR AUTHOR'S ORGANIZ ATION 02/02/2024 [facility] ([place] DATE CREATED AUTHOR AUTHOR'S ORGANIZ ATION 10/23/2024 [facility] DATE CREATED AUTHOR AUTHOR'S ORGANIZ ATION 12/20/2024 [facility] DATE CREATED AUTHOR AUTHOR'S ORGANIZ ATION 12/25/2024 [facility] DATE CREATED AUTHOR AUTHOR'S ORGANIZ ATION 12/26/2024 [facility] Care Team (unrecognized sect ion and content) Care Team Personnel Name: PHYSICIAN, NONE Position: Physician Member Role: Primary Care Physician Name: MALORIE PEGUERO MD Position: ED Physician Member Role: ED Physician Address: Address: [facility] [address] [place] [id number] Name: SHAHEEN Sinha Position: AO RN Member Role: ED RN Care Team Related Persons Name: MAST, MARILYN Care Team Personnel Name: PHYSICIAN, NONE Position: Physician Member Role: Primary Care Physician Name: JEREMIE MCCORMACK MD Position: ED Physician Member Role: ED Physician Address: Address: [facility] [address] [place] [id number] Name: Halley Staples RN Position: [...] Bright MD Family Provider Active Girma Correa WATER TECHNICIAN, WATER TECHNICIAN-C Primary Care Provider Active Team Status: Inactive Member Role Status Dates Dr. Jameel Brown DO Attending Provider, Emergency Provider Active ROMAIN ADAMES Primary Care Provider Active Team Status: Inactive Member Role Status Dates Dr. Nguyễn Al DO Emergency Provider Active Girmadane Correa WATER TECHNICIAN, WATER TECHNICIAN-C Primary Care Provider Active Team Status: Active Member Role/Relationship Status Dates Dr. Jhonatan Garcia DO Primary Care Provider Active Team Status: Active Member Role/Relationship Status Dates Girma Correa WATER TECHNICIAN, WATER TECHNICIAN-C Primary Care Provider Active Start: October 24, 2024 Dr. Dolly HOLCOMB MD Attending Provider Active Start: October 24, 2024 Team Status: Active Member Role/Relationship Status Dates Girma Correa WATER TECHNICIAN, WATER TECHNICIAN-C Primary Care Provider Active Start: October 28, 2024 Dr. Dolly HOLCOMB MD Attending Provider Active Start: October 28, 2024 Dr. Dolly HOLCOMB MD Referring Provider Active Start: October 28, 2024 Team Status: Active Member Role/Relationship Status Dates Girma Correa WATER TECHNICIAN, WATER TECHNICIAN-C Primary Care Provider Active Start: October 30, 2024 Dr. Dolly HOLCOMB MD Attending Provider Active Start: October 30, 2024 Team Status: Active Member Role/Relationship Status Dates Girma Correa WATER TECHNICIAN, WATER TECHNICIAN-C Primary Care Provider Active Start: November 04, 2024 Dr. Dolly HOLCOMB MD Attending Provider Active Start: November 04, 2024 Team Status: Active Member Role/Relationship Status Dates Girma Correa WATER TECHNICIAN, WATER TECHNICIAN-C Primary Care Provider Active Start: November 06, [...] Inactive Member Role/Relationship Status Dates Girma Correa WATER TECHNICIAN, WATER TECHNICIAN-C Primary Care Provider Active Start: November 04, [...] BE BASED ON THE PRIMARY CLINICAL RECORDS. [facility] [employer] provides no warranty or guarantee of the accuracy or completeness of information in this document.
--- NOTE | 2024-12-28 03:56 | ECHOCS_ITS ---
Reason For Study Reason For Study: ATRIAL FIBRILLATION/FLUTTER Procedure This was a 2D Doppler, Color Flow transthoracic echocardiogram. The study was technically difficult. Due to body habitus. Contrast injection was performed. Exam performed portable in patient room. Left Ventricle Normal left ventricular size. Moderately increased left ventricular wall thickness. Normal LVEF with estimated ejection fraction of 55 to 60%. No regional wall motion abnormalities. Grade II diastolic function. Right Ventricle Mild Right ventricular dilation with preserved function. Atria Mild to moderately dilated left atrium Normal right atrium. Mitral Valve The mitral valve is structurally normal. No prolapse or stenosis seen. Trivial mitral valve insufficiency. Tricuspid Valve Normal tricuspid valve. Trivial tricuspid valve insufficiency. Unable to estimate RV systolic pressure due to insufficient tricuspid regurgitant envelope. Aortic Valve Normal aortic valve. Pulmonic Valve The pulmonic valve is not well visualized. Great Vessels The aortic root is not well visualized. Pericardium/Pleural No pericardial effusion. Medication Diluted definity 3.0ml given slow IV push to enhance endocardial definition. MMode/2D Measurements & Calculations LVIDd: 5.3 cm IVSd: 1.5 cm Ao root diam: 3.8 cm LVIDs: 3.2 cm LVPWd: 1.4 cm RVDd: 3.7 cm FS: 40.2 % asc Aorta Diam: 3.8 cm LAV(MOD-bp): 122.4 ml LVAd ap4: 39.8 cm2 LAV(MOD-bp) Indexed: 48.8 ml/m2 LVLd ap4: 8.9 cm LAV(MOD-sp2): 112.3 ml EDV(MOD-sp4): 153.9 ml LAV(MOD-sp4): 112.6 ml EDV(sp4-el): 151.3 ml LVAs ap4: 22.1 cm2 LVLs ap4: 7.4 cm ESV(MOD-sp4): 62.1 ml ESV(sp4-el): 56.4 ml EF(MOD-sp4): 59.6 % EF(sp4-el): 62.7 % SV(MOD-sp4): 91.7 ml SV(sp4-el): 94.9 ml LA A4 area: 29.3 cm2 SI(MOD-sp4): 36.6 ml/m2 RA A4 area: 24.1 cm2 TAPSE: 2.4 cm Time Measurements MV dec time: 0.17 sec Doppler Measurements & Calculations MV E max elijah: 108.1 cm/sec Lat Peak E' Elijah: 12.2 cm/sec Med Peak E' Elijah: 13.2 cm/sec MV A max elijah: 68.4 cm/sec E/E' lat: 8.9 E/E' med: 8.2 MV E/A: 1.6 MV V2 max: 114.3 cm/sec MV P1/2t max elijah: 116.5 cm/sec Ao V2 max: 117.2 cm/sec MV max P.2 mmHg MV P1/2t: 43.2 msec Ao max P.5 mmHg MV V2 mean: 56.0 cm/sec MV dec slope: 789.1 cm/sec2 Ao V2 mean: 91.9 cm/sec MV mean P.5 mmHg MVA(P1/2t): 5.1 cm2 Ao mean P.6 mmHg MV V2 VTI: 28.6 cm Ao V2 VTI: 26.5 cm AV (velocity ratio): 0.77 LV V1 max: 91.7 cm/sec PA V2 max: 106.3 cm/sec TR max elijah: 293.4 cm/sec LV V1 max P.4 mmHg PA V2 mean: 71.3 cm/sec TR max P.4 mmHg LV V1 mean P.7 mmHg LV V1 mean: 61.4 cm/sec LV V1 VTI: 20.5 cm ECHO/Echo Complete W/ Contrast Interpretation Summary Normal left ventricular size. Moderately increased left ventricular wall thickn ess. Normal LVEF with estimated ejection fraction of 55 to 60%. No regional wall motion abnormalities. Grade II diastoli c function. Mild Right ventricular dilation with preserved function. Mild to moderately dilated left atrium Normal right atrium Unable to estimate RV systolic pressure due to insufficient tricuspid regurgita nt envelope. No hemodynamically significant valvular heart disease. Normal pericardium Ordering Physician: Keagan Rowe Referring Physician: Jhonatan Garcia Performed By: Cristel Price, RDCS, RVT
--- NOTE | 2024-12-28 04:06 | ED.RN ---
Melina Loving called and updated on admission.
[2024-12-28] MEDS: 0.9% Normal Saline (1000mL) 1,000 ML 70 ML IV (04:23)
--- OUTSIDE RECORDS SUMMARY | 2024-12-28 04:30 | XMS RPT_ITS | CCD ---
Author Organization [facility] Care Team Providers Care Business Continuity Management Director Name Role Phone Sarah Cohnn Referring Unavailable [...] Unavailable DEMI HUSTON MD Attending Unavailable LORSON, STAMPS Primary Care Unavailable DEMI HUSTON MD Attending [facility] Unavailable SAMY JONES Attending Unavailable LORSON, STAMPS Primary Care Unavailable CINDY HERNANDEZ MD Consulting Unavailable EDWARDO PETTIT, DR LEVIN Attending Unavailabl e LORSON, STAMPS Primary Care Unavailable LORSON, STAMPS Primary Care Unavailable ISREAL AGARWAL DOA D Attending Unavailable LORSON, STAMPS Primary Care Unavailable ISREAL AGARWAL DOA D Attending [facility] Admitting Unavailable [facility] STAMPS Attending [facility]available [facility] Primary Care Unavailable LORSON, STAMPS Primary Care Unavailable KAVYA ASPHALT BLENDER-MONUMENT SETTER HELPERJONNY Attending U JAKE Ring Attending Unavailable JAKE MAXWELL Primary Care Unavailable JAKE MAXWELL Admitting Unavailable LORSON ASPHALT BLENDER-MONUMENT SETTER HELPER, [facility]AM[facility] Primary Care Unavail able DELORES MURO DO Attending Unavailable MANSOOR PETTIT, DR SONNY Woods Consulting Unavailable CIRILO PATEL DO Attending Unavailable LORSON ASPHALT BLENDER-MONUMENT SETTER HELPER, [facility] Primary Care Unavail able JEREMIE MCCORMACK MD Attending Unavailable LORSON ASPHALT BLENDER-MONUMENT SETTER HELPER, STAM[facility] Primary Care Unavail able HEATH PETTIT, DR WILNER Urbina Attending Unavailabl e LORSON ASPHALT BLENDER-MONUMENT SETTER HELPER, [facility] Care Unavail able LORSON ASPHALT BLENDER-MONUMENT SETTER HELPER, STAMPS Primary Care Unavail able CIRILO PATEL DO Attending Unavailable DR SAMY JONES MD, V Attending UnavaCINDY Alvarado MD Consulting Unavailable LORSON ASPHALT BLENDER-MONUMENT SETTER HELPER, [facility] Care Unavail able DELORES MURO DO Admitting Unavailable DR ANGEL GARCES DO Attending Unavailable LORSON ASPHALT BLENDER-MONUMENT SETTER HELPER, [facility] Primary Care Unavail able LORSON ASPHALT BLENDER-MONUMENT SETTER HELPER, STAMPS Primary Care Unavail able LORSON ASPHALT BLENDER-MONUMENT SETTER HELPER, STAMPS Attending Unavail able LORSON ASPHALT BLENDER-MONUMENT SETTER HELPER, [facility] Primary Care Unavail able FARZANA ASPHALT BLENDER-MONUMENT SETTER HELPERHELEN Attending Unava ilable LORSON ASPHALT BLENDER-MONUMENT SETTER HELPER, [facility] Primary Care Unavail able LORSON ASPHALT BLENDER-MONUMENT SETTER HELPER, STAMPS Attending Unavail able LORSON ASPHALT BLENDER-MONUMENT SETTER HELPER, [facility] Primary Care Unavail able LORSON ASPHALT BLENDER-MONUMENT SETTER HELPER, STAMPS Attending Unavail able LORSON ASPHALT BLENDER-MONUMENT SETTER HELPER, STAMPS Primary Care Unavail able LORSON ASPHALT BLENDER-MONUMENT SETTER HELPER, GIRMA Attending Unavail able LORSON ASPHALT BLENDER-MONUMENT SETTER HELPER, STAMPS Primary Care Unavail able LORSON ASPHALT BLENDER-MONUMENT SETTER HELPER, GIRMA Attending Unavail able LORSON ASPHALT BLENDER-MONUMENT SETTER HELPER, STAMPS Primary Care Unavail able LORSON ASPHALT BLENDER-MONUMENT SETTER HELPER, GIRMA Attending Unavail able Lorson MERCHANDISE PRESENTATION ASSOCIATE-C, [place] Primary Care Provider [phone] Jamila PETTIT, Dr. Alberto Attending Provider Unavailryley Marino MD, Dr. Alberto Referring Provider Unavaila jacob Tavera, Dr. Adrian Emergency Provider Jose STONE, Dr. Israel Primary Care Provider [phone] Ayan PETTIT, Dr. Arboleda Emergency Provider Natalie PETTIT, Dr. Mccabe Attending Provider Luiz PETTIT, Dr. Mukherjee Admit Provider Luiz PETTIT, Dr. Mukherjee Attending Provider Luiz PETTIT, Dr. Mukherjee Other Provider Natalie PETTIT, Dr. Mccabe Other Provider Ton PETTIT, Dr. Farzad Aden Attending Provider Ton PETTIT, Dr. Farzad Aden Other Provider Yaz Dee Admitting Unavailable Austin Estrada Consulting Unavailable GarciaJhonatan ta [facility] Unavailable Farzad Camilo Attending Unavailable Yaz Dee Consulting Unavailable Yaz Dee Consulting Unavailable Yaz Dee Attending Unavailable [facility] Jhonatan [facility] Unavailable Yaz Dee Admitting Unavailable Gudla OLS, Dolly Attending Unavailable Lorson MERCHANDISE PRESENTATION ASSOCIATE, [facility] Unavailable Lorson MERCHANDISE PRESENTATION ASSOCIATE, [facility] Unavailable Gudla OLS, Dolly Attending Unavailable Gudla OLS, Dolly Referring Unavailable Lorson MERCHANDISE PRESENTATION ASSOCIATE, [facility] Unavailable Gudla OLS, Dolly Attending Unavailable Gudla OLS, Dolly Attending Unavailable Lorson MERCHANDISE PRESENTATION ASSOCIATE, [facility] Unavailable Gudla OLS, Dolly Attending Unavailable Gudla OLS, Dolly Referring Unavailable Lorson MERCHANDISE PRESENTATION ASSOCIATE, [facility] Care Unavailable Siska, Austin Consulting Unavailable Natalie Austin Attending Unavailable Farzad Camilo Consulting Unavailable Farzad Camilo Attending Unavailable Austin Estrada Attending Unavailable Jose Jhonatan [facility] Unavailable Nguyễn Al Attending Unavailable [facility] Unavailable LORSON ASPHALT BLENDER-MONUMENT SETTER HELPER, [facility] Unavail able KORSTEFANY DO NANI Admitting Unavailable FELICE STONE NANI Attending Unavailable LUPE STONE, DR ORTIZ Consulting Unavailable CORRY DO, CHANTAL S Consulting Unavailable MELISSA MARIN MD Consulting Unavailable LARRY BYRNE Consulting Unavailable NATALY PETTIT, BRENNON Attending Unavailable CINDY HERNANDEZ MD Admitting Unavailable LORSON ASPHALT BLENDER-MONUMENT SETTER HELPER, [facility] Unavail able ZOHREH LEON MD, HELENA Consulting Unavailable ALIZE PETTIT, DR UPTON Consulting Unavailable CINDY HERNANDEZ MD Consulting Unavailable NADIR PETTIT, DR JONES Admitting Unavailab le LORSON ASPHALT BLENDER-MONUMENT SETTER HELPER, [facility] Unavail able MOY WATTS MD Attending U julio cesar PECK MD, JANAE Consulting Unavailable ARIEL ZIMMER MD Consulting Unavailable MANSOOR PETTIT, DR SONNY Woods Admitting Unavailable LORSON ASPHALT BLENDER-MONUMENT SETTER HELPER, [facility] Unavail able FELICE DO, NANI Consulting Unavailable MAXIME COLLINS DO Attending Unavailable TE CASEY MD Consulting Unavailable NATHANIEL PETTIT FACP, DELORES Ashton Consulting Unavail able LUIS PETTIT, DR GUAJARDO Consulting Unavailab herberth MARTIN MD, DR MAYRA ROBINS Consulting Unavaila ble LORSON ASPHALT BLENDER-MONUMENT SETTER HELPER, [facility] Unavail able PERNELL DEWITT MD Attending Unavailable ISABEL GOODSON MD, DR MAYRA ROBINS Consulting Unavaila jacob MAX MD, DR SONNY Woods Admitting Unavailable NISH STONE, SHAYLEE Consulting Unavailabl murray DONOVAN DO, ANA LUISA Consulting Unavailable JACINTO PETTIT, TE Consulting Unavailable CORRY DO, CHANTAL S Consulting Unavailable Zaina Rounding NurseTomer Unavailable Dr. Nguyễn Lew Attending Provider [phone] Keagan Rowe DO Admit Provider Unavail able Dr. Keagan Rowe DO Attending Provider Unav ailable Allergies Allergy Classification Reported Allergen(s) Allergy Type Date of Onset Reaction(s) Facility (9 sources) HMG-CoA reductase inhibitor; 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: [statins] Propensity to adverse reactions to drug myalgia [facility] (5 sources) Wijinqy-Uef-Kbu Reductase Inhibitor Allergy to substance 5 [facility] (1 source) Dtnmkys-Lgo-Nsh Reductase Inhibitor Drug allergy (disorder) [address] [facility] Repository (1 source) Contrast media; 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: [iodinated radiocontrast agents] Drug allergy [facility] (1 source) Triiodobenzoic Acids Propensity to adverse reactions [address] [facility] Medications Current Medications Medication Drug Class(es) Dates Sig (Normalized) Sig (Original) acetaminophen 325 mg oral capsule (16 sources) Start: 12-20-2024 take 2 capsules by [...] every six hours as needed for pain Yoder 325- 5 mg oral tablet Dose = 1 tab(s), Oral, q6h, PRN As needed for severe pain, X 3 day(s), # 12 tab(s), 0 Refill(s), Contusion of rib on right side, 144.4 Start Date: 05/05/23 Stop Date: 05/08/23 Status: Ordered Start: 07-15-2022 End: 07-17-2022 take 1 tablet by mouth every six hours as needed for pain Yoder 325- 5 mg oral tablet Dose = [...] day(s), # 28 tab(s), 0 Refill(s), Pharmacy: [facility]/pharmacy #[id number], Postoperative pain, 175, cm, 12/24/24 [...] day(s), # 28 tab(s), 0 Refill(s), Pharmacy: [facility]/pharmacy #[id number], Post-op pain, 177.8, cm, 10/17/24 [...] number: 1 albuterol 0.83 mg/ml inhalation solution (13 sources) beta2-Adrenerg ic Agonist Start: 12-19-2024 take [...] q6h, # 120 EA, 0 Refill(s), Pharmacy: [facility]/pharmacy #[id number], 176, cm, 08/27/24 14:57:00 EDT, Height, kg, 08/27/24 14:57:00 EDT, Dosing Weight Start Date: 08/27/24 Status: Ordered Quantity: 120.0 Unit: EA Repeat number: 1 allopurinol 100 mg oral tablet (20 sources) Xanthine Oxidase Inhibitor Start: 10-23-2022 End: 02-06-2023 take 1 tablet by mouth once daily Allopurinol 100 mg Tablet Active 100 mg PO DAILY October 23, 2022 12:00am Start: 07-11-2022 take 1 dose by mouth [...] number: 1 amLODIPine 5 mg oral tablet (11 sources) Dihydropyridine Calcium Channel Kp Start: 10-23-2022 take 1 tablet by mouth once daily Amlodipine 5 mg Tablet Active 5 mg PO DAILY October 23, 2022 12:00am atorvastatin 40 mg oral tablet (3 sources) HMG-CoA Reductase Inhibitor Start: 08-09-2023 atorvastatin 40 mg oral tablet Dose : 40 mg = 1 tab(s), Oral, Daily, # 100 tab(s), 3 Refill(s), [facility]acy: [facility][id number], 178.5, cm, 08/08/23 13:32:00 EDT, Height, kg, 08/08/23 13:32:00 EDT, Dosing Weight Start Date: 08/09/23 Status: Ordered bempedoic acid 180 mg oral tablet (14 sources) Start: 05-14-2024 take 1 tablet by mouth once daily Bempedoic Acid (Nexletol) 180 mg tablet Active 180 mg PO DAILY December 19, 2024 12:00am benzonatate 100 mg oral capsule (7 sources) Non-narcotic Antitussive Start: 06-13-2023 End: 06-20-2023 [...] A DAY as needed for cough 20 0 February 12, 2023 12:00am December 20, 2024 [...] device, # 1 EA, 0 Refill(s), Pharmacy: [facility], 177.8, cm, 11/28/23 13:54:00 EDT, Height, 151.4, kg, 11/28/23 13:54:00 EDT, Dosing Weight Start Date: 12/12/23 Status: Ordered cephalexin 500 mg oral tablet (2 sources) Cephalosporin Antibacterial Start: 11-28-2024 End: 12-12-2024 cephalexin 500 mg oral tablet Dose : 500 mg = 1 tab(s), Oral, QID, X 14 day(s), # 56 tab(s), 0 Refill(s), 12/12/24 1:19:00 PM EDT, Pharmacy: [facility]/pharmacy #[id number], 177.8, cm, 11/24/24 11:36:00 EDT, [...] Daily, # 90 tab(s), 3 Refill(s), Pharmacy: [facility], 177.8, cm, 11/28/23 13:54:00 EDT, [...] BID, # 180 cap(s), 4 Refill(s), Pharmacy: [facility]/pharmacy #[id number], 177.8, cm, 10/02/24 6:28:00 EDT, Height, kg, 10/02/24 6:28:00 EDT, Dosing Weight Start Date: 10/04/24 Status: Ordered Quantity: 180.0 Unit: cap(s) Repeat number: 5 Start: 09-24-2024 Tikosyn 250 mc g oral capsule Dose : 250 mcg = 1 cap(s), Oral, BID, # 180 cap(s), 1 Refill(s), Pharmacy: [facility]/pharmacy #[id number], 175, cm, 09/05/24 16:01:00 EDT, Height, kg, 09/05/24 16:01:00 EDT, Dosing Weight Start Date: 09/24/24 Status: Ordered Quantity: 180.0 Unit: cap(s) Repeat number: 2 Start: 12-12-2023 Tikosyn 250 mc g oral capsule Dose : 250 mcg = 1 cap(s), Oral, BID, # 180 cap(s), 3 Refill(s), Pharmacy: [facility]/pharmacy #[id number], 177.8, cm, 11/28/23 13:54:00 EDT, Height, kg, 11/28/23 13:54:00 EDT, Dosing Weight Start Date: 12/12/23 Status: Ordered Quantity: 180.0 Unit: cap(s) Repeat number: 4 Start: 06-09-2023 Tikosyn 250 mc g oral capsule Dose : 250 mcg = 1 cap(s), Oral, BID, # 60 cap(s), 2 Refill(s), [facility]acy: [facility] #[id number], 176, cm, 06/07/23 13:36:00 EST, Height, kg, 06/07/23 13:36:00 EST, Dosing Weight Start Date: 06/09/23 Status: Ordered 0.5 ml dulaglutide 3 mg/ml auto-injector (19 sources) GLP-1 Receptor Agonist Start: 04-15-2024 End: 10-02-2025 Dulaglutide (Trulicity) 1.5 mg/0.5 mL pen injector Active 1.5 mg SC .WEEKLY December 20, 2024 12:00am Start: 12-12-2023 End: 04-02-2024 inject 1 dose by subcutaneous injection every week Trulicity Pen 1.5 mg/0.5 mL subcutaneous solution Dose : 1.5 mg =, Subcutaneous, qWeek, sent in absence of PCP, # 4 EA, 3 Refill(s), Pharmacy: [facility], 177.8, cm, 11/28/23 13:54:00 EDT, Height, kg, 11/28/23 13:54:00 EDT, Dosing Weight Start Date: 12/12/23 Stop Date: 04/02/24 Status: Ordered Start: 08-21-2023 inject 0.5 mL by sub cutaneous injection every week Trulicity Pen 0.75 mg/0.5 mL subcutaneous solution Dose : 0.75 mg = 0.5 mL, Subcutaneous, qWeek, # 2.5 mL, 5 Refill(s), 0.5 mL/Pen, Pharmacy: [facility] #[id number], 177.8, cm, 08/09/23 21:07:00 EDT, Height, kg, 08/09/23 21:07:00 EDT, Dosing Weight Start Date: 08/21/23 Status: Ordered DULoxetine 20 mg delayed release oral capsule (13 sources) Serotonin and Norepinephrine Reuptake Inhibitor Start: 10-02-2024 take 1 capsule by mouth once daily [...] qDay, # 30 cap(s), 3 Refill(s), Pharmacy: [facility], 177.8, cm, 11/28/23 13:54:00 EDT, Height, kg, 11/28/23 13:54:00 EDT, Dosing Weight Start Date: 12/12/23 Status: Ordered Start: 08-08-2023 End: 08-02-2024 FLUoxetine 10 mg oral capsul e Dose : 10 mg = 1 cap(s), Oral, qDay, # 30 cap(s), 0 Refill(s), Pharmacy: [facility], 175, cm, 05/14/24 13:59:00 EST, Height, kg, 05/14/24 13:57:00 EST, Dosing Weight Start Date: 05/14/24 Status: Ordered Quantity: 30.0 Unit: cap(s) Repeat number: 1 Start: 06-09-2023 FLUoxetine 10 mg oral capsule Dose : 10 mg = 1 cap(s), Oral, qDay, # 30 cap(s), 2 Refill(s), [facility]: [id number], 176, cm, 06/07/23 13:36:00 EST, Height, kg, 06/07/23 13:36:00 EST, Dosing Weight Start Date: 06/09/23 Status: Ordered Start: 01-31-2023 FLUoxetine 20 mg oral tablet Dose : 20 mg = 1 tab(s), Oral, qDay, # 90 tab(s), 3 Refill(s), [id number], 175.3, cm, 12/23/22 6:37:00 EDT, Height, kg, 12/23/22 6:38:00 EDT, Dosing Weight Start Date: 01/31/23 Status: Ordered Start: 12-13-2022 FLUoxetine 20 mg oral tablet Dose : 20 mg = 1 tab(s), Oral, qDay, # 30 tab(s), 3 Refill(s), Pharmacy: [facility] #[id number], 175.3, cm, 12/13/22 14:43:00 EDT, Height Start Date: 12/13/22 Status: Ordered Start: 11-08-2022 FLUoxetine 10 mg oral tablet Dose : 10 mg = 1 tab(s), Oral, qDay, # 30 tab(s), 2 Refill(s), Pharmacy: [facility] #[id number], 177, cm, 11/08/22 13:50:00 EDT, Height Start Date: 11/08/22 Status: Ordered 120 actuat fluticasone propionate 0.11 mg/actuat metered dose inhaler (3 sources) Corticosteroid Start: 08-08-2023 End: 08-02-2024 take 2 puff(s) by inhalation twice daily Flovent HFA 110 mcg/inh inhalation aerosol 2 puff(s), Inhalation, BID, # 3 EA, 3 Refill(s), [facility]acy: [facility] #[id number], 178.5, cm, 08/08/23 13:32:00 EDT, Height, kg, 08/08/23 13:32:00 EDT, Dosing Weight Start Date: 08/08/23 Stop Date: 08/02/24 Status: Ordered Fluticasone Propion-Salmetero l (8 sources) Corticosteroid, beta2-Adrenergic Agonist Start: 12-20-2024 Fluticasone [...] PM, # 135 tab(s), 3 Refill(s), Pharmacy: [facility], 177.8, cm, 11/28/23 13:54:00 EDT, Height, kg, 11/28/23 13:54:00 EDT, Dosing Weight Start Date: 12/12/23 Status: Ordered Start: 08-08-2023 take 1 tablet by brandon th in the morning, then take 0.5 tablet by mouth in the evening Lasix 40 mg oral tablet See Instructions, 1 tab in AM and 0.5 tab in PM, # 135 tab(s), 3 Refill(s), [facility][id number], 178.5, cm, 08/08/23 13:32:00 EDT, Height, kg, 08/08/23 13:32:00 EDT, Dosing Weight Start Date: 08/08/23 Status: Ordered Start: 11-14-2022 take 1 tablet by brandon th in the morning, then take 0.5 tablet by mouth in the evening Lasix 40 mg oral tablet See Instructions, 1 tab in AM and 0.5 tab in PM, # 135 tab(s), 0 Refill(s), Pharmacy: [facility] #[id number], 177, cm, 11/08/22 13:50:00 EDT, Height, kg, [...] number: 1 hydroCHLOROthiazide 50 mg oral tablet (11 sources) Thiazide Diuretic Start: 07-11-2022 take 1 tablet by mouth once daily Hydrochlorothiazide 50 mg Tablet Active 50 mg PO DAILY October 23, 2022 12:00am losartan potassium 100 mg oral tablet (2 sources) Angiotensin 2 Receptor Kp Start: 12-23-2022 losartan 100 mg oral tablet Dose : 100 mg = 1 tab(s), Oral, qDay, # 30 tab(s), 6 Refill(s), Pharmacy: [facility] #[id number], 175.3, cm, 12/23/22 6:37:00 EDT, Height, kg, 12/23/22 6:38:00 EDT, Dosing Weight Start Date: 12/23/22 Status: Ordered metFORMIN hydrochloride 500 mg oral tablet (12 sources) Biguanide Start: 01-31-2023 MetFORMIN (Eqv-Fortamet) 500 mg oral tablet, EXTENDED RELEASE Dose : 500 mg = 1 tab(s), Oral, qDay, # 90 tab(s), 3 Refill(s), Pharmacy: [facility] #[id number], 175.3, cm, 12/23/22 6:37:00 EDT, Height, kg, [...] suspension (1 source) Start: 12-23-2024 Milk of Magnnorris ia 8% oral suspension 2.4 gram(s) Dose [...] 30 EA, 5 Refill(s), [facility]acy: [facility] #[id number], 177, cm, 11/08/22 13:50:00 EDT, Height Start Date: 11/08/22 Stop Date: 05/07/23 Status: Ordered nystatin 040504 unt/ml topical cream (1 source) Polyene Antifungal Start: 01-12-2024 End: 02-01-2024 nystatin 100,000 units/g topical cream Apply 1 frida, Topical, BID, X 10 day(s), # 30 gram(s), 1 Refill(s), Pharmacy: [facility]/pharmacy #[id number], Cream, 177, cm, 01/12/24 9:42:00 [...] 12/23/24 Status: Ordered Repeat number: 1 Start: 10-23-2022 End: 05-14-2023 omeprazole 40 mg oral delaye d release capsule Dose : 40 mg = 1 cap(s), Oral, BID, before a meal., # 180 cap(s), 0 Refill(s), Pharmacy: [facility]/pharmacy #[id number], 175, cm, 09/05/24 16:01:00 EDT, Height, kg, 09/05/24 16:01:00 EDT, Dosing Weight Start Date: 09/19/24 Status: Ordered Quantity: 180.0 Unit: cap(s) Repeat number: 1 penicillin v potassium 500 mg oral tablet (1 source) Start: 05-14-2024 End: 05-24-2024 penicillin V potassium 500 mg oral tablet Dose : 500 mg = 1 tab(s), Oral, q8h, X 10 day(s), # 30 tab(s), 0 Refill(s), 05/24/24 2:36:00 PM EST, [id number], 175, cm, 05/14/24 13:59:00 EST, Height, 143.9, kg, 05/14/24 13:57:00 EST, Dosing Weight Start Date: 05/14/24 Stop Date: 05/24/24 Status: Ordered Quantity: 30.0 Unit: tab(s) Repeat number: 1 Xgoribbzbaah-Bzybggtjxn-Ukj trs (Zosyn In Dextrose (Iso-Osm)) 2.25 gram/50 mL piggyback (1 source) Start: 12-27-2024 Piperacillin-T azobactam -Dextrs (Zosyn In Dextrose (Iso-Osm)) 2.25 gram/50 mL piggyback Active 2.25 g IV Q8H December 27, 2024 12:00am polyethylene glycol 3350 with electrolytes oral powder for reconstitution (2 sources) Start: 02-15-2023 polyethylene g lycol 3350 with electrolytes oral powder for reconstitution See Instructions, As directed by provider at [facility] # 1 EA, 0 Refill(s), Pharmacy: [facility] #[id number], Colon cancer screening, 175.9, cm, 02/15/23 13:56:00 [...] food, # 90 tab(s), 3 Refill(s), Pharmacy: [facility] #[id number], 177.8, cm, 10/02/24 6:28:00 EDT, Height, kg, 10/02/24 6:28:00 EDT, Dosing Weight Start Date: 10/04/24 Status: Ordered Quantity: 90.0 Unit: tab(s) Repeat number: 4 Start: 02-09-2024 Potassium Chlo ride (Eqv-K-Tab) 10 mEq oral tablet, extended release Dose : 10 mEq = 1 tab(s), Oral, qDay, # 30 tab(s), 3 Refill(s), Pharmacy: [facility]/pharmacy #[id number], 175, cm, 02/09/24 15:58:00 EDT, [...] Ordered pravastatin sodium 40 mg oral tablet (15 sources) HMG-CoA Reductase Inhibitor Start: 08-29-2024 take 1 tablet by mouth once daily Pravastatin 40 mg tablet Active 40 mg PO DAILY December 19, 2024 12:00am Start: 02-13-2024 pravastatin 40 mg oral tablet Dose : 40 mg = 1 tab(s), Oral, Daily, # 100 tab(s), 3 Refill(s), Pharmacy: [facility], 175, cm, 02/13/24 15:03:00 EDT, [...] Daily, # 100 tab(s), 3 Refill(s), Pharmacy: [facility], 177.8, cm, 11/28/23 13:54:00 EDT, [...] BID, # 180 tab(s), 3 Refill(s), [facility], 177.8, cm, 11/28/23 13:54:00 EDT, Height, kg, 11/28/23 13:54:00 EDT, Dosing Weight Start Date: 12/12/23 Stop Date: 12/06/24 Status: Ordered Start: 03-22-2023 take 1 tablet by brandon th twice daily sacubitril-valsartan 49 mg-51 mg oral tablet Dose = 1 tab(s), Oral, BID, # 60 tab(s), 3 Refill(s), [facility][id number], 175.3, cm, 03/22/23 13:31:00 EDT, Height, kg, [...] qDay, # 90 tab(s), 3 Refill(s), Pharmacy: [facility], 177.8, cm, 11/28/23 13:54:00 EDT, Height, kg, 11/28/23 13:54:00 EDT, Dosing Weight Start Date: 12/12/23 Stop Date: 12/06/24 Status: Ordered Quantity: 90.0 Unit: tab(s) Repeat number: 4 Start: 02-07-2023 spironolactone 25 mg oral tablet Dose : 25 mg = 1 tab(s), Oral, qDay, # 60 tab(s), 5 Refill(s), [facility]: [facility] #[id number], 175.3, cm, 12/23/22 6:37:00 EDT, Height, kg, 12/23/22 6:38:00 EDT, Dosing Weight Start Date: 02/07/23 Status: Ordered Start: 11-24-2022 spironolactone 25 mg oral tablet Dose : 25 mg = 1 tab(s), Oral, qDay, # 60 tab(s), 0 Refill(s), Pharmacy: [facility] #[id number], 177, cm, 11/08/22 13:50:00 EDT, Height, kg, 11/08/22 13:50:00 EDT, Dosing Weight Start Date: 11/24/22 Status: Ordered Start: 11-04-2022 spironolactone 25 mg oral tablet Dose : 25 mg = 1 tab(s), Oral, BIDM, # 60 tab(s), 0 Refill(s), Pharmacy: [facility] #[id number], 175.3, cm, 11/04/22 8:52:00 EDT, Height Start Date: 11/04/22 Status: Ordered Symbicort 80 mcg-4.5 mcg/inh Inhaler (13 sources) Start: 07-29-2024 End: 07-24-2025 take 1 dose by inhalation twice daily Symbicort 80 mcg-4.5 mcg/inh Inhaler Dose = 2 puff(s), Inhalation, BID, # 30.6 gram(s), 3 Refill(s), Pharmacy: [facility], 182, cm, 06/12/24 13:53:00 EST, Height, kg, 06/12/24 13:53:00 EST, Dosing Weight Start Date: 07/29/24 Stop Date: 07/24/25 Status: Ordered Quantity: 30.6 Unit: g Repeat number: 4 Start: 04-08-2024 End: 08-06-2024 take 1 dose by inhalation twice daily Symbicort 80 mcg-4.5 mcg/inh Inhaler Dose = 2 puff(s), Inhalation, BID, # 10.2 gram(s), 3 Refill(s), Pharmacy: [facility], 175, cm, 04/01/24 13:03:00 EST, Height, kg, 04/01/24 13:03:00 EST, Dosing Weight Start Date: 04/08/24 Stop Date: 08/06/24 Status: Ordered Quantity: 10.2 Unit: g Repeat number: 4 Start: 12-12-2023 End: 04-10-2024 take 1 dose by inhalation twice daily Symbicort 80 mcg-4.5 mcg/inh Inhaler Dose = 2 puff(s), Inhalation, BID, # 10.2 gram(s), 3 Refill(s), Pharmacy: [facility], 177.8, cm, 11/28/23 13:54:00 EDT, Height, kg, 11/28/23 13:54:00 EDT, Dosing Weight Start Date: 12/12/23 Stop Date: 04/10/24 Status: Ordered timolol 2.5 mg/ml ophthalmic solution (14 sources) beta-Adrenergic Kp Start: 10-25-2022 take 1 dose into the eye(s) twice daily timolol maleate 0.25% ophthalmic solution Dose = 1 drop(s), Eyes, both, BID, # 5 mL, 0 Refill(s) Start Date: 10/25/22 Status: Ordered Start: 10-23-2022 End: 12-20-2024 Timolol Maleate 0.25 % Drops Discontinued 1 NMA EACH EYE DAILY October 23, 2022 12:00am December 20, 2024 4:16pm tiZANidine 2 mg oral tablet (19 sources) Central alpha-2 Adrenergic Agonist Start: 12-19-2024 take 1 tablet by mouth every eight hours as needed Tizanidine 2 mg tablet Active 2 mg PO Q8H as needed for muscle spasticity December 19, 2024 12:00am Start: 12-19-2024 take 1 tablet by brandon three times daily Tizanidine 2 mg tablet Active 2 mg PO THREE TIMES A DAY December 19, 2024 12:00am Start: 08-26-2024 End: 09-23-2024 tiZANidine 2 mg oral tablet Dose : 2 mg = 1 tab(s), Oral, q8h, PRN as needed for muscle spasm, # 21 tab(s), 3 Refill(s), Pharmacy: [facility], [id number], cm, 06/12/24 13:53:00 EST, Height, kg, 06/12/24 13:53:00 EST, Dosing Weight Start Date: 08/26/24 Stop Date: 09/23/24 Status: Ordered Quantity: 21.0 Unit: tab(s) Repeat number: 4 Start: 03-04-2024 tiZANidine 2 m g oral tablet Dose : 2 mg = 1 tab(s), Oral, q8h, PRN as needed for muscle spasm, # 90 tab(s), 2 Refill(s), Pharmacy: [facility], 175, cm, 02/13/24 15:03:00 EDT, Height, kg, 02/13/24 15:03:00 EDT, Dosing Weight Start Date: 03/04/24 Status: Ordered Quantity: 90.0 Unit: tab(s) Repeat number: 3 Start: 01-08-2024 tiZANidine 2 m g oral tablet Dose : 2 mg = 1 tab(s), Oral, q8h, PRN as needed for muscle spasm, # 90 tab(s), 2 Refill(s), Pharmacy: [facility], 177.8, cm, 11/28/23 13:54:00 EDT, Height, kg, 11/28/23 13:54:00 EDT, Dosing Weight Start Date: 01/08/24 Status: Ordered traZODone hydrochloride 100 mg oral tablet (20 sources) Serotonin Reuptake Inhibitor Start: 10-09-2024 take 1 tablet by mouth at bedtime Trazodone 100 mg tablet Active 100 mg PO AT BEDTIME December 19, 2024 12:00am Start: 09-19-2024 traZODone 100 mg oral tablet Dose : 100 mg = 1 tab(s), Oral, qHS, # 90 tab(s), 2 Refill(s), Pharmacy: [facility]/pharmacy #[id number], 175, cm, 09/05/24 16:01:00 EDT, Height, kg, 09/05/24 16:01:00 EDT, Dosing Weight Start Date: 09/19/24 Status: Ordered Quantity: 90.0 Unit: tab(s) Repeat number: 3 Start: 12-12-2023 traZODone 100 mg oral tablet Dose : 100 mg = 1 tab(s), Oral, qHS, # 90 tab(s), 3 Refill(s), Pharmacy: [facility], 177.8, cm, 11/28/23 13:54:00 EDT, Height, kg, 11/28/23 13:54:00 EDT, Dosing Weight Start Date: 12/12/23 Status: Ordered Quantity: 90.0 Unit: tab(s) Repeat number: 4 Start: 08-08-2023 traZODone 100 mg oral tablet Dose : 100 mg = 1 tab(s), Oral, qHS, # 90 tab(s), 3 Refill(s), Pharmacy: [facility] #[id number], 178.5, cm, 08/08/23 13:32:00 EDT, Height, kg, 08/08/23 13:32:00 EDT, Dosing Weight Start Date: 08/08/23 Status: Ordered Start: 12-13-2022 End: 04-12-2023 traZODone 100 mg oral tablet Dose : 100 mg = 1 tab(s), Oral, qHS, # 90 tab(s), 3 Refill(s), Pharmacy: [facility] #[id number], 175.3, cm, 12/23/22 6:37:00 EDT, Height, kg, 12/23/22 6:38:00 EDT, Dosing Weight Start Date: 01/31/23 Status: Ordered Start: 11-08-2022 End: 02-06-2023 traZODone 50 mg oral tablet Dose : 50 mg = 1 tab(s), Oral, qHS, # 30 tab(s), 2 Refill(s), Pharmacy: [facility] #[id number], 177, cm, 11/08/22 13:50:00 EDT, Height, kg, [...] day(s), # 30 gram(s), 0 Refill(s), Pharmacy: [facility] #[id number], Cream, 175.3, cm, 12/13/22 14:43:00 EDT, Height, [...] 4 EA, 3 Refill(s), generic OZEMPIC, Pharmacy: [facility] #[id number], 178.5, cm, 08/08/23 13:32:00 EDT, Height, kg, [...] 1 brimonidine tartrate 1 mg/ml ophthalmic solution (14 sources) alpha-Adrenergic Agonist Start: 10-25-2022 Alphagan P [...] Date: 12/26/24 Status: Ordered Repeat number: 1 hydrOXYzine pamoate 25 mg oral capsule (20 sources) Antihistamine Start: 08-27-2024 End: 12-28-2024 take 1 capsule by mouth every six hours as needed for anxiety Hydroxyzine Pamoate 25 mg capsule Discontinued 25 mg PO EVERY 6 HOURS as needed for anxiety December 19, 2024 12:00am December 28, 2024 3:28am Start: 08-08-2023 End: 06-09-2024 Vistaril 25 mg oral capsule Dose : 25 mg = 1 cap(s), Oral, QID, PRN as needed for anxiety, X 30 day(s), # 120 cap(s), 5 Refill(s), 06/09/24 4:10:00 PM EST, Pharmacy: [facility], 177.8, cm, 11/28/23 13:54:00 EDT, [...] 05/31/23 2:41:00 PM EST, Pharmacy: [facility] #[id number], 175.3, cm, 12/23/22 6:37:00 EDT, Height, kg, 12/23/22 6:38:00 EDT, Dosing Weight Start Date: 01/31/23 Stop Date: 05/31/23 Status: Ordered lisinopril 40 mg oral tablet (12 sources) Angiotensin Converting Enzyme Inhibitor Start: 07-11-2022 [...] chew, # 60 tab(s), 3 Refill(s), Pharmacy: [facility] #[id number], Shortness of breath, 175.3, cm, 03/22/23 13:31:00 EDT, Height, kg, 03/22/23 13:31:00 EDT, Dosing Weight Start Date: 03/22/23 Stop Date: 03/29/23 Status: Ordered Start: 12-23-2022 Toprol-XL 50 m g oral tablet, extended release Dose : 50 mg = 1 tab(s), Oral, BID, # 60 tab(s), 6 Refill(s), Pharmacy: [facility] #[id number], 175.3, cm, 12/23/22 6:37:00 EDT, Height, kg, 12/23/22 6:38:00 EDT, Dosing Weight Start Date: 12/23/22 Status: Ordered Start: 10-23-2022 End: 12-20-2024 take 1 tablet by mouth twice daily Metoprolol Tartrate 25 mg tablet Discontinued 25 mg PO TWICE A DAY 60 October 23, 2022 12:00am December 20, 2024 4:15pm rivaroxaban 10 mg oral tablet (20 sources) Factor Xa Inhibitor Start: 12-19-2024 End: 12-20-2024 take 2 tablets by mouth once daily Rivaroxaban (Xarelto) 10 mg tablet Discontinued 20 mg PO DAILY December 19, 2024 12:00am December 20, 2024 4:18pm Start: 10-23-2022 End: 02-06-2023 take 1 tablet by mouth once daily at dinner Rivaroxaban (Xarelto) 20 mg tablet Active 20 mg PO DAILY 30 October 23, 2022 12:00am must administer with evening meal traMADol hydrochloride 50 mg oral tablet (5 sources) Opioid Agonist Start: 12-19-2024 End: 12-27-2024 take 1 tablet by mouth every eight hours as needed for pain Tramadol 50 mg tablet Discontinued 50 mg PO Q8H as needed for pain December 19, 2024 12:00am December 27, 2024 11:35pm Start: 12-19-2024 take 1 tablet by brandon th four times daily as needed for pain Tramadol 50 mg tablet Active 50 mg PO 4 TIMES DAILY NEEDED as needed for pain December 19, 2024 12:00am Problems Active Problems Problem Classification Problem Date [...] asthma] 06-20-2023 Chronic Bacterial infection; unspecified site (11 sources) Bacteremia; 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: [Bacteremia] Onset: 11-24-2024 Episodic Cardiac dysrhythmias (20 sources) Atrial fibrillation; 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: [Unspecified atrial fibrillation] Onset: 10-16-2024 10-23-2022 Chronic Cardiac dysrhythmias (10 sources) Tachyarrhythmia ; 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: [Tachycardia, unspecified] Onset: [...] Complications of surgical procedures or medical care (20 sources) Superficial incisional surgical site infection; 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: [...] [Essential (primary) hypertension] Onset: 08-08-2023 11-04-2022 Chronic Fever of unknown origin (2 sources) Fever; 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: [Fever, unspecified] 12-28-2024 Episodic Fluid and electrolyte disorders (9 sources) Acute hypokalemia; 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: [Hypokalemia] Onset: 10-27-2022 [...] therapeutic drug level monitoring] Episodic Other aftercare (4 sources) Long-term current use of anticoagulant; 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: [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 anticoagulants] Episodic Other aftercare [...] Onset: 11-14-2024 Episodic Other aftercare (1 source) [facility] (current) use of anticoagulants; 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: [[facility] (current) use of anticoagulants] Onset: 10-16-2024 Episodic Other and ill-defined heart disease (8 sources) Left ventricular hypertrophy 06-12-2024 Chronic Other circulatory disease (7 sources) H/O: hypertension; 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: [Personal history of [...] Onset: 08-09-2023 Episodic Other connective tissue disease (7 sources) Swelling of hand; 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: [Other specified [...] injuries and conditions due to external causes (3 sources) H/O: fracture; 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: [Personal history of (healed) [...] Onset: 10-16-2024 Episodic Other lower respiratory disease (5 sources) Hypoxia; 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: [Hypoxemia] 12-20-2024 Episodic Other [...] Chronic Other nutritional; endocrine; and metabolic disorders (7 sources) History of diabetes mellitus type 2; 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: [Personal history of other endocrine, nutritional and metabolic disease] 10-23-2022 Episodic Other nutritional; endocrine; and metabolic disorders (1 source) H/O: Disorder; 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: [Personal history of other endocrine, nutritional and metabolic disease] Episodic Other skin disorders (2 sources) Mass of upper limb 02-13-2024 Episodic Other skin disorders (8 sources) Localized swelling of right hand; 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: [...] Test Name Value Interpretation Reference Range Facility Absolute lymphocyte countOrd ered By: Nguyễn Al on 12-27-2024 Lymphocytes Auto (Unsp spec) [#/Vol] 1.04 10*3/uL 0.83-4.[address] [facility] Absolute neutrophil countOrd ered By: Nguyễn Al on 12-27-2024 Neutrophils (Bld) [#/Vol] 4.1 10*3/uL 2.0-7.[address] [facility] Activated partial thrombopla stin time (aPTT) in platelet poor plasma by coagulation aOrdered By: Nguyễn Al on 12-27-2024 aPTT Coag (PPP) [Time] 28.4 s 24.1-36.2 [facility] Anion gap in Serum or Plasma Ordered By: Nguyễn Al on 12-27-2024 Anion gap [Moles/Vol] 9 mmol/L 5-15 [facility] Automated lymphocyte count a s percentage of total leukocytesOrdered By: Nguyễn Al on 12-27-2024 Lymphocytes/100 WBC Auto (Unsp spec) 17.2 % Low 19-[address] [facility] BUN/creatinine ratioOrdered By: Nguyễn Al on 12-27-2024 Urea nitrogen/Creatinine [Mass ratio] 10.9 mg/mg 10-[address] [facility] Basophil percentageOrdered B y: Nguyễn Al on 12-27-2024 Basophils/100 WBC (Bld) 0.7 % 0-1 [facility] Carbon dioxide, total [Moles /volume] in Central venous bloodOrdered By: Nguyễn Al on 12-27-2024 CO2 [Moles/Vol] 26.0 mmol/L 21.0-32.[address] [facility] Chloride assayOrdered By: Shankar Al on 12-27-2024 Chloride [Moles/Vol] 101 mmol/L 98-108 [facility] Eosinophil percentageOrdered By: Nguyễn Al on 12-27-2024 Eosinophils/100 WBC (Bld) 1.3 % 0-[address] [facility] Erythrocyte distribution wid th ratioOrdered By: Nguyễn Al on 12-27-2024 Erythrocyte distribution width (RBC) [Ratio] 13.4 % 11.6-14.[address] [facility] Erythrocyte distribution wid th standard deviationOrdered By: Nguyễn Al on 12-27-2024 Erythrocyte distribution width (RBC) [Ratio] 41.7 fl 35.1-43.[address] [facility] Glomerular filtration rate ( GFR) estimation/1.73 sq m using serum, plasma, or whole bOrdered By: Nguyễn Al on 12-27-2024 GFR/1.73 sq M.predicted among non-blacks MDRD (S/P/Bld) [Vol rate/Area] 106 mL/min/{1.73_m2} >[address] [facility] Comment on above: mL/min/1.73m2 CKD-EP I Creatinine Equation (2020) Hematocrit Auto (Bld) [Volum e fraction]Ordered By: Ngyuễn Al on 12-27-2024 Hematocrit (Bld) [Volume fraction] 42.7 % 40-[address] [facility] Hemoglobin measurementOrdere d By: Nguyễn Al on 12-27-2024 Hemoglobin (Bld) [Mass/Vol] 13.6 g/dL 13.0-16.[address] [facility] Immature granulocytes/100 WB C Auto (Bld)Ordered By: Nguyễn Al on 12-27-2024 Immature granulocytes/100 WBC (Bld) 0.500 % 0.0-0.[address] [facility] Comment on above: IG% - Immature Granu locytes (promyelocytes, myelocytes and metamyelocytes) > 1% indicates that a LEFT SHIFT is Present. International normalized rat io (INR) calculationOrdered By: Nguyễn Al on 12-27-2024 INR Coag (Bld) [Relative time] 1.2 {INR} [facility] MCV (mean corpuscular volume ) determinationOrdered By: Nguyễn Al on 12-27-2024 MCV (RBC) [Entitic vol] 85.1 fL 80-94 [facility] Mean corpuscular hemoglobin (MCH) determinationOrdered By: Nguyễn Al on 12-27-2024 MCH (RBC) [Entitic mass] 27.1 pg 27.0-32.[address] [facility] Mean corpuscular hemoglobin concentration (MCHC) determinationOrdered By: Nguyễn Al on 12-27-2024 MCHC (RBC) [Mass/Vol] 31.9 g/dL Low 32-36 [facility] Mean platelet volume determi nationOrdered By: Nguyễn Al on 12-27-2024 Platelet mean volume (Bld) [Entitic vol] 10.3 fL 6.2-12.[address] [facility] Monocyte percentageOrdered B y: Nguyễn Al on 12-27-2024 Monocytes/100 WBC (Bld) 11.8 % High 0-10 [facility] Neutrophil percentageOrdered By: Nguyễn Al on 12-27-2024 Neutrophils/100 WBC (Bld) 68.5 % 47-[address] [facility] Nucleated red blood cell per centageOrdered By: Nguyễn Al on 12-27-2024 Nucleated RBC/100 WBC (Bld) [Ratio] 0 % 0-[address] [facility] Platelet countOrdered By: Shankar cox Herberth on 12-27-2024 Platelets (Bld) [#/Vol] 146 10*3/uL Low 150-[address] [facility] Potassium measurement (mass/ volume)Ordered By: Nguyễn Al on 12-27-2024 Potassium (Unsp spec) [Mass/Vol] 3.7 mmol/L 3.3-5.[address] [facility] Prothrombin timeOrdered By: Nguyễn Al on 12-27-2024 PT Coag (PPP) [Time] 15.4 s High 11.7-14.9 [facility] RBC Auto (Bld) [#/Vol]Ordere d By: Nguyễn Al on 12-27-2024 RBC (Bld) [#/Vol] 5.02 10*6/uL 4.6-6.2 [facility] Serum creatinine measurement (mass/volume)Ordered By: Nguyễn Al on 12-27-2024 Creatinine [Mass/Vol] 0.79 mg/dL 0.70-1.20 [facility] Serum glucose measurement (m ass/volume)Ordered By: Nguyễn Al on 12-27-2024 Glucose [Mass/Vol] 167 mg/dL High 70-99 [facility] Serum or plasma calcium scott urement (mass/volume)Ordered By: Nguyễn Al on 12-27-2024 Calcium [Mass/Vol] 8.7 mg/dL 7.6-11.0 [facility] Serum or plasma urea nitroge n measurement (mass/volume)Ordered By: Nguyễn Al on 12-27-2024 Urea nitrogen [Mass/Vol] 9 mg/dL 4-[address] [facility] Sodium levelOrdered By: Nguyễn Al on 12-27-2024 Sodium [Moles/Vol] 136 mmol/L 133-145 [facility] White blood cell (WBC) count Ordered By: Nguyễn Al on 12-27-2024 WBC (Bld) [#/Vol] 6.0 10*3/uL 4.4-11.0 [facility] .Auto Diffon 12-26-2024 Basophil, Absolute 0.0 10 3/mcL Normal 0.0-0.3 [facility] Comment on above: Performed By: #### C BC, MG, GFR, ADIFF, BMP, ANEU #### [address] [address] Basophils/100 WBC (Bld) 0.9 % Normal 0.0-2.5 [facility] Comment on above: Performed By: #### C BC, MG, GFR, ADIFF, BMP, ANEU #### [address] [address] Eosinophil, Absolute 0.1 10 3/mcL Normal 0.0-0.7 [facility] Comment on above: Performed By: #### C BC, MG, GFR, ADIFF, BMP, ANEU #### [address] [address] Eosinophils/100 WBC (Bld) 3.2 % Normal 0.0-6.0 [facility] Comment on above: Performed By: #### C BC, MG, GFR, ADIFF, BMP, ANEU #### [address] [address] Lymphocyte, Absolute 1.0 10 3/mcL Normal 0.9-4.3 [facility] Comment on above: Performed By: #### C BC, MG, GFR, ADIFF, BMP, ANEU #### [address] [address] Lymphocytes/100 WBC (Bld) 22.4 % Normal 20.0-40.0 [facility] Comment on above: Performed By: #### C BC, MG, GFR, ADIFF, BMP, ANEU #### [address] [address] Monocyte, Absolute 0.6 10 3/mcL Normal 0.1-1.4 [facility] Comment on above: Performed By: #### C BC, MG, GFR, ADIFF, BMP, ANEU #### [address] [address] Monocytes/100 WBC (Bld) 13.1 % High 2.0-13.0 [facility] Comment on above: Performed By: #### C BC, MG, GFR, ADIFF, BMP, ANEU #### [address] [address] Neutrophils/100 WBC (Bld) 60.4 % Normal 50.0-75.0 [facility] Comment on above: Performed By: #### C BC, MG, GFR, ADIFF, BMP, ANEU #### [address] [address] .GFRon 12-26-2024 Estimated Glomerular Filtration Rate 105 ml/min/1.73sqm Normal [facility] Comment on [...] BC, MG, GFR, ADIFF, BMP, ANEU #### [address] [address] .NEUABSon 12-26-2024 Neutrophil, Absolute 2.6 10 3/mcL Normal 2.3-8.1 [facility] Comment on above: Performed By: #### C BC, MG, GFR, ADIFF, BMP, ANEU #### [address] [address] BMPon 12-26-2024 BUN/Creatinine Ratio 7.4 ratio Low 10.0-22.0 [facility] Comment on above: Performed By: #### C BC, MG, GFR, ADIFF, BMP, ANEU #### [address] [address] Calcium [Mass/Vol] 9.1 mg/dL Normal 8.7-10.4 [facility] Comment on above: Performed By: #### C BC, MG, GFR, ADIFF, BMP, ANEU #### [address] [address] Chloride [Moles/Vol] 104 mmol/L Normal 98-110 [facility] Comment on above: Performed By: #### C BC, MG, GFR, ADIFF, BMP, ANEU #### [address] [address] CO2 [Moles/Vol] 28 mmol/L Normal 22-32 [facility] Comment on above: Performed By: #### C BC, MG, GFR, ADIFF, BMP, ANEU #### [address] [address] Creatinine [Mass/Vol] 0.81 mg/dL Normal 0.60-1.40 [facility] Comment on above: Result Comment: Test ing performed on [employer] analyzer using enzymatic creatinine methodology. Performed By: #### C BC, MG, GFR, ADIFF, BMP, ANEU #### [address] [address] Electrolyte Balance 8.0 mEq/L Normal 4.0-15.0 [facility] Comment on above: Performed By: #### C BC, MG, GFR, ADIFF, BMP, ANEU #### [address] [address] Glucose [Mass/Vol] 151 mg/dL High 70-110 [facility] Comment on above: Performed By: #### C BC, MG, GFR, ADIFF, BMP, ANEU #### [address] [address] Potassium [Moles/Vol] 4.1 mmol/L Normal 3.5-5.0 [facility] Comment on above: Performed By: #### C BC, MG, GFR, ADIFF, BMP, ANEU #### [address] [address] Sodium [Moles/Vol] 140 mmol/L Normal 136-145 [facility] Comment on above: Performed By: #### C BC, MG, GFR, ADIFF, BMP, ANEU #### [address] [address] Urea nitrogen [Mass/Vol] 6.0 mg/dL Low 8.0-22.0 [facility] Comment on above: Performed By: #### C BC, MG, GFR, ADIFF, BMP, ANEU #### [place] [address] CBCon 12-26-2024 Erythrocyte distribution width (RBC) [Ratio] 14.7 % Normal 11.5-15.5 [facility] Comment on above: Performed By: #### C BC, MG, GFR, ADIFF, BMP, ANEU #### [place] [address] Hematocrit (Bld) [Volume fraction] 40.7 % Normal 40.0-52.0 [facility] Comment on above: Performed By: #### C BC, MG, GFR, ADIFF, BMP, ANEU #### [place] [address] Hgb 13.2 G/dL Normal 13.0-17.5 [facility] Comment on above: Performed By: #### C BC, MG, GFR, ADIFF, BMP, ANEU #### [place] [address] MCH (RBC) [Entitic mass] 27.6 pg Normal 27.0-33.0 [facility] Comment on above: Performed By: #### C BC, MG, GFR, ADIFF, BMP, ANEU #### [place] [address] MCHC 32.3 G/dL Normal 32.0-36.0 [facility] Comment on above: Performed By: #### C BC, MG, GFR, ADIFF, BMP, ANEU #### [place] [address] MCV (RBC) [Entitic vol] 85.4 fL Normal 81.0-100.0 [facility] Comment on above: Performed By: #### C BC, MG, GFR, ADIFF, BMP, ANEU #### [place] [address] Platelet 148 10 3/mcL Low 150-450 [facility] Comment on above: Performed By: #### C BC, MG, GFR, ADIFF, BMP, ANEU #### [place] [address] Platelet mean volume (Bld) [Entitic vol] 8.2 fL Normal 6.4-10.5 [facility] Comment on above: Performed By: #### C BC, MG, GFR, ADIFF, BMP, ANEU #### [place] [address] RBC 4.77 10 6/mcL Normal 4.50-6.00 [facility] Comment on above: Performed By: #### C BC, MG, GFR, ADIFF, BMP, ANEU #### [place] [address] WBC 4.3 10 3/mcL Low 4.5-10.8 [facility] Comment on above: Performed By: #### C BC, MG, GFR, ADIFF, BMP, ANEU #### [place] [address] LABORATORYOrdered By: Armando domínguez on 12-26-2024 Glucose [Mass/Vol] 171 mg/dL High 70 - 110 mg/dL [facility] LABORATORYOrdered By: Jr Mac on 12-26-2024 Glucose [Mass/Vol] 167 mg/dL High 70 - 110 mg/dL [facility] Glucose [Mass/Vol] 121 mg/dL High 70 - 110 mg/dL [facility] LABORATORYOrdered By: SYSTEM SYSTEM on 12-26-2024 [...] above: Interpretive Data: T esting performed on [employer] analyzer using enzymatic creatinine methodology. Electrolyte Balance [...] 4.3 10^3/mcL Workflow SS Lymphocytes/100 WBC (Bld) 22.4 % Normal 20.0 - 40.0 % Workflow SS Magnesium [Mass/Vol] 1.8 mg/dL Normal 1.6 - 2 .4 mg/dL ADM SS MCH (RBC) [Entitic mass] 27.6 [...] 12-26-2024 Magnesium [Mass/Vol] 1.8 mg/dL Normal 1.6-2.4 [facility] Comment on above: Performed By: #### C BC, MG, GFR, ADIFF, BMP, ANEU #### [place] [address] .Auto Diffon 12-25-2024 Basophil, Absolute 0.0 10 3/mcL Normal 0.0-0.3 [facility] Comment on above: Performed By: #### C BC, MG, GFR, ADIFF, BMP, ANEU #### [address] [address] Basophils/100 WBC (Bld) 0.6 % Normal 0.0-2.5 [facility] Comment on above: Performed By: #### C BC, MG, GFR, ADIFF, BMP, ANEU #### [address] [address] Eosinophil, Absolute 0.1 10 3/mcL Normal 0.0-0.7 [facility] Comment on above: Performed By: #### C BC, MG, GFR, ADIFF, BMP, ANEU #### [address] [address] Eosinophils/100 WBC (Bld) 2.2 % Normal 0.0-6.0 [facility] Comment on above: Performed By: #### C BC, MG, GFR, ADIFF, BMP, ANEU #### [address] [address] Lymphocyte, Absolute 0.9 10 3/mcL Normal 0.9-4.3 [facility] Comment on above: Performed By: #### C BC, MG, GFR, ADIFF, BMP, ANEU #### [address] [address] Lymphocytes/100 WBC (Bld) 14.1 % Low 20.0-40.0 [facility] Comment on above: Performed By: #### C BC, MG, GFR, ADIFF, BMP, ANEU #### [address] [address] Monocyte, Absolute 0.5 10 3/mcL Normal 0.1-1.4 [facility] Comment on above: Performed By: #### C BC, MG, GFR, ADIFF, BMP, ANEU #### [address] [address] Monocytes/100 WBC (Bld) 8.9 % Normal 2.0-13.0 [facility] Comment on above: Performed By: #### C BC, MG, GFR, ADIFF, BMP, ANEU #### [address] [address] Neutrophils/100 WBC (Bld) 74.2 % Normal 50.0-75.0 [facility] Comment on above: Performed By: #### C BC, MG, GFR, ADIFF, BMP, ANEU #### [address] [address] .GFRon 12-25-2024 Estimated Glomerular Filtration Rate 105 ml/min/1.73sqm Normal [facility] Comment on [...] BC, MG, GFR, ADIFF, BMP, ANEU #### [address] [address] .NEUABSon 12-25-2024 Neutrophil, Absolute 4.5 10 3/mcL Normal 2.3-8.1 [facility] Comment on above: Performed By: #### C BC, MG, GFR, ADIFF, BMP, ANEU #### [place] [id number] BMPon 12-25-2024 BUN/Creatinine Ratio 14.6 ratio Normal 10.0-22.0 [facility] Comment on above: Performed By: #### C BC, MG, GFR, ADIFF, BMP, ANEU #### [address] [address] Calcium [Mass/Vol] 9.2 mg/dL Normal 8.7-10.4 [facility] Comment on above: Performed By: #### C BC, MG, GFR, ADIFF, BMP, ANEU #### [address] [address] Chloride [Moles/Vol] 101 mmol/L Normal 98-110 [facility] Comment on above: Performed By: #### C BC, MG, GFR, ADIFF, BMP, ANEU #### [address] [address] CO2 [Moles/Vol] 31 mmol/L Normal 22-32 [facility] Comment on above: Performed By: #### C BC, MG, GFR, ADIFF, BMP, ANEU #### [address] [address] Creatinine [Mass/Vol] 0.82 mg/dL Normal 0.60-1.40 [facility] Comment on above: Result Comment: Test ing performed on [employer] analyzer using enzymatic creatinine methodology. Performed By: #### C BC, MG, GFR, ADIFF, BMP, ANEU #### [address] [address] Electrolyte Balance 6.0 mEq/L Normal 4.0-15.0 [facility] Comment on above: Performed By: #### C BC, MG, GFR, ADIFF, BMP, ANEU #### [address] [address] Glucose [Mass/Vol] 218 mg/dL High 70-110 [facility] Comment on above: Performed By: #### C BC, MG, GFR, ADIFF, BMP, ANEU #### [address] [address] Potassium [Moles/Vol] 4.9 mmol/L Normal 3.5-5.0 [facility] Comment on above: Performed By: #### C BC, MG, GFR, ADIFF, BMP, ANEU #### [address] [address] Sodium [Moles/Vol] 138 mmol/L Normal 136-145 [facility] Comment on above: Performed By: #### C BC, MG, GFR, ADIFF, BMP, ANEU #### [address] [address] Urea nitrogen [Mass/Vol] 12.0 mg/dL Normal 8.0-22.0 [facility] Comment on above: Performed By: #### C BC, MG, GFR, ADIFF, BMP, ANEU #### [place] [id number] CBCon 12-25-2024 Erythrocyte distribution width (RBC) [Ratio] 15.2 % Normal 11.5-15.5 [facility] Comment on above: Performed By: #### C BC, MG, GFR, ADIFF, BMP, ANEU #### [place] [address] Hematocrit (Bld) [Volume fraction] 43.7 % Normal 40.0-52.0 [facility] Comment on above: Performed By: #### C BC, MG, GFR, ADIFF, BMP, ANEU #### [place] [address] Hgb 14.1 G/dL Normal 13.0-17.5 [facility] Comment on above: Performed By: #### C BC, MG, GFR, ADIFF, BMP, ANEU #### [place] [address] MCH (RBC) [Entitic mass] 27.3 pg Normal 27.0-33.0 [facility] Comment on above: Performed By: #### C BC, MG, GFR, ADIFF, BMP, ANEU #### [place] [address] MCHC 32.3 G/dL Normal 32.0-36.0 [facility] [facility] Comment on above: Performed By: #### C BC, MG, GFR, ADIFF, BMP, ANEU #### [place] [address] MCV (RBC) [Entitic vol] 84.6 fL Normal 81.0-100.0 [facility] Comment on above: Performed By: #### C BC, MG, GFR, ADIFF, BMP, ANEU #### [place] [address] Platelet 136 10 3/mcL Low 150-450 [facility] Comment on above: Performed By: #### C BC, MG, GFR, ADIFF, BMP, ANEU #### [facility] [address] [place] [address] Platelet mean volume (Bld) [Entitic vol] 8.5 fL Normal 6.4-10.5 [facility] Comment on above: Performed By: #### C BC, MG, GFR, ADIFF, BMP, ANEU #### [facility] [address] [place] [address] RBC 5.16 10 6/mcL Normal 4.50-6.00 [facility] Comment on above: Performed By: #### C BC, MG, GFR, ADIFF, BMP, ANEU #### [facility] [address] [place] [address] WBC 6.1 10 3/mcL Normal 4.5-10.8 [facility] Comment on above: Performed By: #### C BC, MG, GFR, ADIFF, BMP, ANEU #### [place] [address] LABORATORYOrdered By: Slime jaramillo on 12-25-2024 Blood Glucose Testing Reason Routine (12/25/24 4:14 PM) [facility] LABORATORYOrdered By: SYSTEM SYSTEM on 12-25-2024 Calcium [Mass/Vol] 9.2 mg/dL Normal 8.7 - 10. 4 mg/dL ADM SS Chloride [Moles/Vol] 101 mmol/L Normal 98 - 11 0 mEq/L ADM SS CO2 [Moles/Vol] 31 mmol/L Normal 22 - 32 mEq/L ADM SS Creatinine [Mass/Vol] 0.82 mg/dL Normal 0.60 - 1.40 mg/dL ADM SS Comment on above: Interpretive Data: T esting performed on Eco[employer] analyzer using enzymatic creatinine methodology. Electrolyte Balance 6.0 mEq/L Normal 4.0 - 15 .0 mEq/L ADM SS Estimated Glomerular Filtration Rate 105 [...] 14.1 % Low 20.0 - 40.0 % Workflow SS MCH (RBC) [Entitic mass] 27.3 [...] Glucose Testing Reason Routine (12/25/24 11:33 AM) [facility] LABORATORYOrdered By: Patricia aMx on 12-25-2024 Blood Glucose Testing Reason Routine (12/25/24 7:30 AM) [facility] MGon 12-25-2024 Magnesium [Mass/Vol] 1.7 mg/dL Normal 1.6-2.4 [facility] Comment on above: Order Comment: QNS 14:03:01 EDT Performed By: #### C BC, MG, GFR, ADIFF, BMP, ANEU #### [address] [address] No Panel Informationon 12-25 Microscopic examination of blood, culture Culture has been received in lab and is no growth to date. Routine cultures are held for 5 days. [facility] 12-25-2024 LDose Vancomycin:(trough) See eMAR [facility] Comment on above: Performed By: #### A DIFF, ANEU, BMP, CBC, GFR #### [address] [address] Vancomycin Tr 17.0 mcg/mL Normal 10.0-20.0 [facility] Comment on above: Performed By: #### A DIFF, ANEU, BMP, CBC, GFR #### [address] [address] XR FLUORO 1-2 HRS TECH TIMEo n [...] 3:52:11 AM Ordering Provider: ANA LUISA DONOVAN [facility] .Auto Diffon 12-24-2024 Basophil, Absolute 0.1 10 3/mcL Normal 0.0-0.3 [facility] Comment on above: Performed By: #### C BC, MG, GFR, ADIFF, BMP, ANEU #### [address] [address] Basophils/100 WBC (Bld) 1.0 % Normal 0.0-2.5 [facility] Comment on above: Performed By: #### C BC, MG, GFR, ADIFF, BMP, ANEU #### [address] [address] Eosinophil, Absolute 0.1 10 3/mcL Normal 0.0-0.7 [facility] Comment on above: Performed By: #### C BC, MG, GFR, ADIFF, BMP, ANEU #### [address] [address] Eosinophils/100 WBC (Bld) 1.8 % Normal 0.0-6.0 [facility] Comment on above: Performed By: #### C BC, MG, GFR, ADIFF, BMP, ANEU #### [address] [address] Lymphocyte, Absolute 0.9 10 3/mcL Normal 0.9-4.3 [facility] Comment on above: Performed By: #### C BC, MG, GFR, ADIFF, BMP, ANEU #### [address] [address] Lymphocytes/100 WBC (Bld) 11.7 % Low 20.0-40.0 [facility] Comment on above: Performed By: #### C BC, MG, GFR, ADIFF, BMP, ANEU #### [address] [address] Monocyte, Absolute 1.0 10 3/mcL Normal 0.1-1.4 [facility] Comment on above: Performed By: #### C BC, MG, GFR, ADIFF, BMP, ANEU #### [address] [address] Monocytes/100 WBC (Bld) 12.9 % Normal 2.0-13.0 [facility] Comment on above: Performed By: #### C BC, MG, GFR, ADIFF, BMP, ANEU #### [address] [address] Neutrophils/100 WBC (Bld) 72.6 % Normal 50.0-75.0 [facility] Comment on above: Performed By: #### C BC, MG, GFR, ADIFF, BMP, ANEU #### [address] [address] .GFRon 12-24-2024 Estimated Glomerular Filtration Rate 92 ml/min/1.73sqm [facility] Comment on above: Result Comment: Stages [...] BC, MG, GFR, ADIFF, BMP, ANEU #### [address] [address] Estimated Glomerular Filtration Rate 92 ml/min/1.73sqm [facility] Comment on above: Result Comment: Stages [...] A DIFF, ANEU, BMP, CBC, GFR #### [address] [address] .NEUABSon 12-24-2024 Neutrophil, Absolute 5.4 10 3/mcL Normal 2.3-8.1 [facility] Comment on above: Performed By: #### C BC, MG, GFR, ADIFF, BMP, ANEU #### [address] [address] BMPon 12-24-2024 BUN/Creatinine Ratio 11.2 ratio Normal 10.0-22.0 [facility] Comment on above: Performed By: #### C BC, MG, GFR, ADIFF, BMP, ANEU #### [place] [address] Calcium [Mass/Vol] 9.2 mg/dL Normal 8.7-10.4 [facility] Comment on above: Performed By: #### C BC, MG, GFR, ADIFF, BMP, ANEU #### [place] [address] Chloride [Moles/Vol] 97 mmol/L Low 98-110 [facility] Comment on above: Performed By: #### C BC, MG, GFR, ADIFF, BMP, ANEU #### [place] [address] CO2 [Moles/Vol] 32 mmol/L Normal 22-32 [facility] Comment on above: Performed By: #### C BC, MG, GFR, ADIFF, BMP, ANEU #### [place] [id number] Creatinine [Mass/Vol] 0.98 mg/dL Normal 0.60-1.40 [facility] Comment on above: Result Comment: Test ing performed on [employer] analyzer using enzymatic creatinine methodology. Performed By: #### C BC, MG, GFR, ADIFF, BMP, ANEU #### [address] [address] Electrolyte Balance 8.0 mEq/L Normal 4.0-15.0 [facility] Comment on above: Performed By: #### C BC, MG, GFR, ADIFF, BMP, ANEU #### [address] [address] Glucose [Mass/Vol] 118 mg/dL High 70-110 [facility] Comment on above: Performed By: #### C BC, MG, GFR, ADIFF, BMP, ANEU #### [address] [address] Potassium [Moles/Vol] 3.7 mmol/L Normal 3.5-5.0 [facility] Comment on above: Performed By: #### C BC, MG, GFR, ADIFF, BMP, ANEU #### [address] [address] Sodium [Moles/Vol] 137 mmol/L Normal 136-145 [facility] Comment on above: Performed By: #### C BC, MG, GFR, ADIFF, BMP, ANEU #### [address] [address] Urea nitrogen [Mass/Vol] 11.0 mg/dL Normal 8.0-22.0 [facility] Comment on above: Performed By: #### C BC, MG, GFR, ADIFF, BMP, ANEU #### [address] [address] BUN/Creatinine Ratio 11.2 ratio Normal 10.0-22.0 [facility] Comment on above: Performed By: #### A DIFF, ANEU, BMP, CBC, GFR #### [address] [address] Calcium [Mass/Vol] 9.3 mg/dL Normal 8.7-10.4 [facility] Comment on above: Performed By: #### A DIFF, ANEU, BMP, CBC, GFR #### [address] [address] Chloride [Moles/Vol] 99 mmol/L Normal 98-110 [facility] Comment on above: Performed By: #### A DIFF, ANEU, BMP, CBC, GFR #### [address] [address] CO2 [Moles/Vol] 31 mmol/L Normal 22-32 [facility] Comment on above: Performed By: #### A DIFF, ANEU, BMP, CBC, GFR #### [place] [id number] Creatinine [Mass/Vol] 0.98 mg/dL Normal 0.60-1.40 [facility] Comment on above: Result Comment: Test ing performed on [employer] analyzer using enzymatic creatinine methodology. Performed By: #### A DIFF, ANEU, BMP, CBC, GFR #### [place] [address] Electrolyte Balance 3.0 mEq/L Low 4.0-15.0 [facility] Comment on above: Performed By: #### A DIFF, ANEU, BMP, CBC, GFR #### [place] [id number] Glucose [Mass/Vol] 100 mg/dL Normal 70-110 [facility] Comment on above: Performed By: #### A DIFF, ANEU, BMP, CBC, GFR #### [place] [address] Potassium [Moles/Vol] 4.8 mmol/L Normal 3.5-5.0 [facility] Comment on above: Performed By: #### A DIFF, ANEU, BMP, CBC, GFR #### [place] [address] Sodium [Moles/Vol] 133 mmol/L Low 136-145 [facility] Comment on above: Performed By: #### A DIFF, ANEU, BMP, CBC, GFR #### [place] [id number] Urea nitrogen [Mass/Vol] 11.0 mg/dL Normal 8.0-22.0 [facility] Comment on above: Performed By: #### A DIFF, ANEU, BMP, CBC, GFR #### [address] [address] CBCon 12-24-2024 Erythrocyte distribution width (RBC) [Ratio] 15.0 % Normal 11.5-15.5 [facility] Comment on above: Performed By: #### C BC, MG, GFR, ADIFF, BMP, ANEU #### [place] [address] Hematocrit (Bld) [Volume fraction] 44.1 % Normal 40.0-52.0 [facility] Comment on above: Performed By: #### C BC, MG, GFR, ADIFF, BMP, ANEU #### [place] [address] Hgb 14.3 G/dL Normal 13.0-17.5 [facility] Comment on above: Performed By: #### C BC, MG, GFR, ADIFF, BMP, ANEU #### [place] [address] MCH (RBC) [Entitic mass] 27.3 pg Normal 27.0-33.0 [facility] Comment on above: Performed By: #### C BC, MG, GFR, ADIFF, BMP, ANEU #### [place] [address] MCHC 32.3 G/dL Normal 32.0-36.0 [facility] Comment on above: Performed By: #### C BC, MG, GFR, ADIFF, BMP, ANEU #### [place] [address] MCV (RBC) [Entitic vol] 84.4 fL Normal 81.0-100.0 [facility] Comment on above: Performed By: #### C BC, MG, GFR, ADIFF, BMP, ANEU #### [place] [address] Platelet 140 10 3/mcL Low 150-450 [facility] Comment on above: Result Comment: Plat elet results confirmed. Specimen was checked for clot Performed By: #### C BC, MG, GFR, ADIFF, BMP, ANEU #### [place] [address] Platelet mean volume (Bld) [Entitic vol] 8.8 fL Normal 6.4-10.5 [facility] Comment on above: Performed By: #### C BC, MG, GFR, ADIFF, BMP, ANEU #### [place] [address] RBC 5.23 10 6/mcL Normal 4.50-6.00 [facility] Comment on above: Performed By: #### C BC, MG, GFR, ADIFF, BMP, ANEU #### [place] [id number] [place] [address] WBC 7.5 10 3/mcL Normal 4.5-10.8 [facility] Comment on above: Performed By: #### C BC, MG, GFR, ADIFF, BMP, ANEU #### [facility] [address] [place] [address] Comprehensive Metabolic Prof azon 12-24-2024 ALB Normal 3.5-5.[address] [facility] Comment on above: Order Comment: 314.2 Result Comment: [facility] Performed By: #### L 500.4100, [id number] #### [facility] [address] [place], [address] ALK PHOS Normal 40-[address] [facility] Comment on above: Order Comment: 314.2 Result Comment: [facility] Performed By: #### L 500.4100, [id number] #### [facility] [address] [place], [address] ALT Normal <=[address] [facility] Comment on above: Order Comment: 314.2 Result Comment: [facility] Performed By: #### L 500.4100, [id number] #### [facility] [address] [place], [address] AST Normal <=[address] [facility] Comment on above: Order Comment: 314.2 Result Comment: [facility] Performed By: #### L 500.4100, [id number] #### [facility] [address] [place], [address] BUN Normal 4-[address] [facility] Comment on above: Order Comment: 314.2 Result Comment: [facility] Performed By: #### L 500.4100, [id number] #### [facility] [address] [place], [address] BUN/CRE Normal 10-[address] [facility] Comment on above: Order Comment: 314.2 Result Comment: [facility] Performed By: #### L 500.4100, [id number] #### [facility] [address] [place], [address] Calcium Normal 7.6-11.[address] [facility] Comment on above: Order Comment: 314.2 Result Comment: [facility] Performed By: #### L 500.4100, [id number] #### [facility] [address] [place], [address] CL Normal 98-[address] [facility] Comment on above: Order Comment: 314.2 Result Comment: [facility] Performed By: #### L 500.4100, L501.85 #### [facility] [address] [place], [address] CO2 Normal 21.0-32.[address] [facility] Comment on above: Order Comment: 314.2 Result Comment: [facility] Performed By: #### L 500.4100, [id number] #### [facility] [address] [place], [address] CREAT,SERUM Normal 0.70-1.[address] [facility] Comment on above: Order Comment: 314.2 Result Comment: [facility] Performed By: #### L 500.4100, [id number] #### [facility] [address] [place], [address] eGFR Normal >[address] [facility] Comment on above: Order Comment: 314.2 Result Comment: [facility] Performed By: #### L 500.4100, [id number] #### [facility] [address] [place], [address] GAP Normal 5-[address] [facility] Comment on above: Order Comment: 314.2 Result Comment: [facility] Performed By: #### L 500.4100, [id number] #### [facility] [address] [place], [address] GLU Normal 70-[address] [facility] Comment on above: Order Comment: 314.2 Result Comment: [facility] Performed By: #### L 500.4100, [id number] #### [facility] [address] [place], [address] Potassium Normal 3.3-5.[address] [facility] Comment on above: Order Comment: 314.2 Result Comment: [facility] Performed By: #### L 500.4100, [id number] #### [facility] [address] [place], [address] T BILI Normal 0.00-1.[address] [facility] Comment on above: Order Comment: 314.2 Result Comment: [facility] Performed By: #### L 500.4100, [id number] #### [facility] [address] [place], [address] T PROT Normal 5.9-8.[address] [facility] Comment on above: Order Comment: 314.2 Result Comment: [facility] Performed By: #### L 500.4100, [id number] #### [facility] [address] [place], [address] Comprehensive Metabolic Profil Normal 133-[address] [facility] Comment on above: Order Comment: 314.2 Result Comment: [facility] Performed By: #### L 500.4100, [id number] #### [facility] [address] [place], [address] LABORATORYOrdered By: SYSTEM SYSTEM on 12-24-2024 Basophils [...] above: Interpretive Data: T esting performed on [employer] analyzer using enzymatic creatinine methodology. Electrolyte Balance [...] 14.3 G/dL Normal 13.0 - 17.5 G/dL AH Workflow SS Lymphocytes (Bld) [#/Vol] 0.9 103/mcL Normal 0.9 - 4.3 10^3/mcL Workflow SS Lymphocytes/100 WBC (Bld) 11.7 % Low 20.0 - 40.0 % Workflow SS Magnesium [Mass/Vol] 1.9 mg/dL Normal 1.6 - 2 .4 mg/dL ADM SS MCH (RBC) [Entitic mass] 27.3 pg [...] 8.8 fL Normal 6.4 - 10.5 fL Workflow SS Platelets (Bld) [#/Vol] 140 103/mcL [...] Ratio 1.2 ratio Invalid Interpretation Code [employer] SS Comment on above: Interpretive Data: Baljinder linn [employer] (CHEST, 1992, 102:312S-25S) [...] 7.5 103/mcL Normal 4.5 - 10.8 10^3/mcL Workflow SS MGon 12-24-2024 Magnesium [Mass/Vol] 1.9 mg/dL Normal 1.6-2.4 [facility] Comment on above: Performed By: #### C BC, MG, GFR, ADIFF, BMP, ANEU #### [place] [address] No Panel Informationon 12-24 Microscopic examination of blood, culture Culture has been received in lab and is no growth to date. Routine cultures are held for 5 days. [facility] PROon 12-24-2024 INR Coag (PPP) [Relative time] 1.2 {INR} Normal [facility] Comment on above: Result Comment: [employer] (CHEST, 1991, 102:312S-25S) recommended therapeutic range for oral anticoagulant therapy is: LOW RISK: Prophylaxis of venous thrombosis INR: 2.0-3.0 Treatment of pulmonary embolism 2.0-3.0 Prevention of systemic embolism 2.0-3.0 HIGH RISK: Mechanical prosthetic valves 2.5-3.5 Performed By: #### C BC, MG, GFR, ADIFF, BMP, ANEU #### [address] [address] PT Coag (PPP) [Time] 13.8 s Normal 9.0-14.4 [facility] Comment on above: Result Comment: Effe ctive 12/11/07, Protime results may be affected by some antibiotics (i.e. Ciprofloxacin, Azithromycin, Bactrim) which may potentiate the action of oral anticoagulants, with further increases in Protime/INR. Performed By: #### C BC, MG, GFR, ADIFF, BMP, ANEU #### [address] [address] .Auto Diffon 12-23-2024 Basophil, Absolute 0.1 10 3/mcL Normal 0.0-0.3 [facility] Comment on above: Performed By: #### A DIFF, ANEU, BMP, CBC, GFR #### [address] [address] Basophils/100 WBC (Bld) 0.8 % Normal 0.0-2.5 [facility] Comment on above: Performed By: #### A DIFF, ANEU, BMP, CBC, GFR #### [address] [address] Eosinophil, Absolute 0.2 10 3/mcL Normal 0.0-0.7 [facility] Comment on above: Performed By: #### A DIFF, ANEU, BMP, CBC, GFR #### [address] [address] Eosinophils/100 WBC (Bld) 1.9 % Normal 0.0-6.0 [facility] Comment on above: Performed By: #### A DIFF, ANEU, BMP, CBC, GFR #### [address] [address] Lymphocyte, Absolute 1.2 10 3/mcL Normal 0.9-4.3 [facility] Comment on above: Performed By: #### A DIFF, ANEU, BMP, CBC, GFR #### [address] [address] Lymphocytes/100 WBC (Bld) 13.9 % Low 20.0-40.0 [facility] Comment on above: Performed By: #### A DIFF, ANEU, BMP, CBC, GFR #### [address] [address] Monocyte, Absolute 1.1 10 3/mcL Normal 0.1-1.4 [facility] Comment on above: Performed By: #### A DIFF, ANEU, BMP, CBC, GFR #### [address] [address] Monocytes/100 WBC (Bld) 12.5 % Normal 2.0-13.0 [facility] Comment on above: Performed By: #### A DIFF, ANEU, BMP, CBC, GFR #### [address] [address] Neutrophils/100 WBC (Bld) 70.9 % Normal 50.0-75.0 [facility] Comment on above: Performed By: #### A DIFF, ANEU, BMP, CBC, GFR #### [address] [address] .MDWon 12-23-2024 Monocyte Distribution Width 21.10 High 0.00-20.00 [facility] Comment on above: Result Comment: For adults in ED, MDW>20.0 may be associated with a higher risk of sepsis during the first 12hrs of hospital admission Performed By: #### A DIFF, ANEU, BMP, CBC, GFR #### [address] [address] .NEUABSon 12-23-2024 Neutrophil, Absolute 6.0 10 3/mcL Normal 2.3-8.1 [facility] Comment on above: Performed By: #### A DIFF, ANEU, BMP, CBC, GFR #### [address] [address] ABO/Rh (Gel)on 12-23-2024 ABO/Rh Interp Positive Invalid Interpretation Code [facility] Comment on above: Performed By: #### A DIFF, ANEU, BMP, CBC, GFR #### [address] [address] ABS (Gel)on 12-23-2024 ABSC Interp (Gel) Negative Normal [facility] Comment on above: Performed By: #### A DIFF, ANEU, BMP, CBC, GFR #### [place] [address] CBCon 12-23-2024 Erythrocyte distribution width (RBC) [Ratio] 15.1 % Normal 11.5-15.5 [facility] Comment on above: Performed By: #### A DIFF, ANEU, BMP, CBC, GFR #### [place] [address] Hematocrit (Bld) [Volume fraction] 47.5 % Normal 40.0-52.0 [facility] Comment on above: Performed By: #### A DIFF, ANEU, BMP, CBC, GFR #### [place] [address] Hgb 15.5 G/dL Normal 13.0-17.5 [facility] Comment on above: Performed By: #### A DIFF, ANEU, BMP, CBC, GFR #### [place] [address] MCH (RBC) [Entitic mass] 27.7 pg Normal 27.0-33.0 [facility] Comment on above: Performed By: #### A DIFF, ANEU, BMP, CBC, GFR #### [place] [address] MCHC 32.5 G/dL Normal 32.0-36.0 [facility] Comment on above: Performed By: #### A DIFF, ANEU, BMP, CBC, GFR #### [place] [address] MCV (RBC) [Entitic vol] 85.0 fL Normal 81.0-100.0 [facility] Comment on above: Performed By: #### A DIFF, ANEU, BMP, CBC, GFR #### [place] [address] Platelet 223 10 3/mcL Normal 150-450 [facility] Comment on above: Performed By: #### A DIFF, ANEU, BMP, CBC, GFR #### [place] [address] Platelet mean volume (Bld) [Entitic vol] 8.0 fL Normal 6.4-10.5 [facility] Comment on above: Performed By: #### A DIFF, ANEU, BMP, CBC, GFR #### [place] [id number] [place] [address] RBC 5.59 10 6/mcL Normal 4.50-6.00 [facility] Comment on above: Performed By: #### A DIFF, ANEU, BMP, CBC, GFR #### [address] [address] WBC 8.5 10 3/mcL Normal 4.5-10.8 [facility] Comment on above: Performed By: #### A DIFF, ANEU, BMP, CBC, GFR #### [address] [address] LABORATORYOrdered By: Suze Amaya on 12-23-2024 ABO [...] Acid Lvl 1.0 mmol/L Normal 0.5-2.2 [facility] Comment on above: Performed By: #### A DIFF, ANEU, BMP, CBC, GFR #### [address] [address] No Panel Informationon 12-23 Microscopic examination of blood, culture Culture has been received in lab and is no growth to date. Routine cultures are held for 5 days. [facility] Microscopic examination of blood, culture Culture has been received in lab and is no growth to date. Routine cultures are held for 5 days. [facility] XR ANKLE MINIMUM 3 VIEWS LEF [...] Date: 12/23/2024 9:57:26 PM Ordering Provider: FARZAD GIL [facility] XR ANKLE MINIMUM 3 VIEWS RIG [...] 12/23/2024 10:04:30 PM Ordering Provider: FARZAD GIL [facility] Absolute lymphocyte countOrd ered By: Yaz Dee on 12-21-2024 Lymphocytes Auto (Unsp spec) [#/Vol] 1.12 10*3/uL 0.83-4.[address] [facility] Absolute neutrophil countOrd ered By: Yaz Dee on 12-21-2024 Neutrophils (Bld) [#/Vol] 5.1 10*3/uL 2.0-7.[address] [facility] Anion gap in Serum or Plasma Ordered By: Yaz Dee on 12-21-2024 Anion gap [Moles/Vol] 10 mmol/L 5-15 [facility] Automated lymphocyte count a s percentage of total leukocytesOrdered By: Yaz Dee on 12-21-2024 Lymphocytes/100 WBC Auto (Unsp spec) 15.1 % Low 19-[address] [facility] BUN/creatinine ratioOrdered By: Yaz Dee on 12-21-2024 Urea nitrogen/Creatinine [Mass ratio] 13.8 mg/mg 10- [facility] Basic Metabolic Profile (BMP )on 12-21-2024 BUN/CRE 13.8 RATIO Normal 10-[address] [facility] Comment on above: Performed By: #### L 500.2500, L100.0100 #### [facility] [address] [place], [address] Calcium [Mass/Vol] 9.2 mg/dL Normal 7.6-11.0 [facility] Comment on above: Performed By: #### L 500.2500, L100.0100 #### [facility] [address] [place], [address] Chloride [Moles/Vol] 101 mmol/L Normal 98-108 [facility] Comment on above: Performed By: #### L 500.2500, L100.0100 #### [facility] [address] [place], [address] CO2 [Moles/Vol] 29.1 mmol/L Normal 21.0-32.[address] [facility] Comment on above: Performed By: #### L 500.2500, L100.0100 #### [facility] [address] [place], [address] Creatinine [Mass/Vol] 0.86 mg/dL Normal 0.70-1.20 [facility] Comment on above: Performed By: #### L 500.2500, L100.0100 #### [facility] [address] [place], [address] ECRCL 138.62 ml/min Normal 50-[address] [facility] Comment on above: Performed By: #### L 500.2500, L100.0100 #### [facility] [address] [place], [address] GAP 10 Normal 5-[address] [facility] Comment on above: Performed By: #### L 500.2500, L100.0100 #### [facility] [address] [place], [address] GFR/1.73 sq M.predicted among non-blacks MDRD (S/P/Bld) [Vol rate/Area] 103 mL/min/{1.73_m2} Normal >[address] [facility] Comment on above: Result Comment: mL/m in/1.73m2 CKD-EPI Creatinine Equation (2020) Performed By: #### L 500.2500, L100.0100 #### [facility] [address] [place], [address] Glucose [Mass/Vol] 126 mg/dL High 70-99 [facility] Comment on above: Performed By: #### L 500.2500, L100.0100 #### [facility] [address] [place], [address] Potassium [Moles/Vol] 4.5 mmol/L Normal 3.3-5.1 [facility] Comment on above: Result Comment: Hemo lysis present, Results??could be affected. ?? Performed By: #### L 500.2500, L100.0100 #### [facility] [address] [place], [address] Sodium [Moles/Vol] 140 mmol/L Normal 133-145 [facility] Comment on above: Performed By: #### L 500.2500, L100.0100 #### [facility] [address] [place], [address] Urea nitrogen [Mass/Vol] 12 mg/dL Normal 4-[address] [facility] Comment on above: Performed By: #### L 500.2500, L100.0100 #### [facility] [address] [place], [address] Basophil percentageOrdered B y: Yazsangeeta Dee on 12-21-2024 Basophils/100 WBC (Bld) 0.5 % 0-1 [facility] Bedside Glucoseon 12-21-2024 FINGERSTICK GLU 171 mg/dL High 74-[address] [facility] Comment on above: Result Comment: STEPHANIE GEMENT OF PATIENT CARE PER NURSING PROTOCOL Performed By: #### L 100.0500, L500.4050 #### [facility] [address] [place], [address] FINGERSTICK GLU 99 mg/dL Normal 74-[address] [facility] Comment on above: Result Comment: STEPHANIE GEMENT OF PATIENT CARE PER NURSING PROTOCOL Performed By: #### L 500.4100, L501.9985 #### [facility] [address] [place], [address] CBC W/Diff, Automatedon 07-2 Absolute Lymph 1.12 X10 3/uL Normal 0.83-4.[address] [facility] Comment on above: Performed By: #### L 500.2500, L100.0100 #### [facility] [address] [place], [address] Absolute Neut 5.1 X10 3/uL Normal 2.0-7.[address] [facility] Comment on above: Performed By: #### L 500.2500, L100.0100 #### [facility] [address] [place], [address] Basophils/100 WBC (Bld) 0.5 % Normal 0-1 [facility] Comment on above: Performed By: #### L 500.2500, L100.0100 #### [facility] [address] [place], [address] Eosinophils/100 WBC (Bld) 1.9 % Normal 0-[address] [facility] Comment on above: Performed By: #### L 500.2500, L100.0100 #### [facility] [address] [place], [address] Erythrocyte distribution width (RBC) [Ratio] 13.8 % Normal 11.6-14.[address] [facility] Comment on above: Performed By: #### L 500.2500, L100.0100 #### [facility] [address] [place], [address] Hematocrit (Bld) [Volume fraction] 45.3 % Normal 40-[address] [facility] Comment on above: Performed By: #### L 500.2500, L100.0100 #### [facility] [address] [place], [address] Hemoglobin (Bld) [Mass/Vol] 14.2 g/dL Normal 13.0-16.[address] [facility] Comment on above: Performed By: #### L 500.2500, L100.0100 #### [facility] [address] [place], [address] IG% 0.300 Normal 0.0-0.[address] [facility] Comment on above: Result Comment: IG% - Immature Granulocytes (promyelocytes, myelocytes and metamyelocytes) > 1% indicates that a LEFT SHIFT is Present. Performed By: #### L 500.2500, L100.0100 #### [facility] [address] [place], [address] Lymphocytes/100 WBC (Bld) 15.1 % Low 19-[address] [facility] Comment on above: Performed By: #### L 500.2500, L100.0100 #### [facility] [address] [place], [address] MCH (RBC) [Entitic mass] 27.2 pg Normal 27.0-32.[address] [facility] Comment on above: Performed By: #### L 500.2500, L100.0100 #### [facility] [address] [place], [address] MCHC (RBC) [Mass/Vol] 31.3 g/dL Low 32-36 [facility] Comment on above: Performed By: #### L 500.2500, L100.0100 #### [facility] [address] [place], [address] MCV (RBC) [Entitic vol] 86.6 fL Normal 80-94 [facility] Comment on above: Performed By: #### L 500.2500, L100.0100 #### [facility] [address] [place], [address] Monocytes/100 WBC (Bld) 13.4 % High 0-10 [facility] Comment on above: Performed By: #### L 500.2500, L100.0100 #### [facility] [address] [place], [address] Neutrophils/100 WBC (Bld) 68.8 % Normal 47-[address] [facility] Comment on above: Performed By: #### L 500.2500, L100.0100 #### [facility] [address] [place], [address] Nucleated RBC (Bld) [#/Vol] 0 10*3/uL Normal 0-[address] [facility] Comment on above: Performed By: #### L 500.2500, L100.0100 #### [facility] [address] [place], [address] Platelet mean volume (Bld) [Entitic vol] 9.8 fL Normal 6.2-12.[address] [facility] Comment on above: Performed By: #### L 500.2500, L100.0100 #### [facility] [address] [place], [address] Platelets (Bld) [#/Vol] 191 10*3/uL Normal 150-[address] [facility] Comment on above: Performed By: #### L 500.2500, L100.0100 #### [facility] [address] [place], [address] RBC (Bld) [#/Vol] 5.23 10*6/uL Normal 4.6-6.2 [facility] Comment on above: Performed By: #### L 500.2500, L100.0100 #### [facility] [address] [place], [address] RDW SD 43.9 fl Normal 35.1-43.[address] [facility] Comment on above: Performed By: #### L 500.2500, L100.0100 #### [facility] [address] [place], [address] WBC (Bld) [#/Vol] 7.4 10*3/uL Normal 4.4-11.0 [facility] Comment on above: Performed By: #### L 500.2500, L100.0100 #### [facility] [address] [place], [address] Carbon dioxide, total [Moles /volume] in Central venous bloodOrdered By: Yaz Dee on 12-21-2024 CO2 [Moles/Vol] 29.1 mmol/L 21.0-32.[address] [facility] Chloride assayOrdered By: Aram Dee on 12-21-2024 Chloride [Moles/Vol] 101 mmol/L 98-108 [facility] Eosinophil percentageOrdered By: Yaz Dee on 12-21-2024 Eosinophils/100 WBC (Bld) 1.9 % 0-[address] [facility] Erythrocyte distribution wid th ratioOrdered By: Yaz Dee on 12-21-2024 Erythrocyte distribution width (RBC) [Ratio] 13.8 % 11.6-14.[address] [facility] Erythrocyte distribution wid th standard deviationOrdered By: Yaz Dee on 12-21-2024 Erythrocyte distribution width (RBC) [Ratio] 43.9 fl 35.1-43.[address] [facility] Glomerular filtration rate ( GFR) estimation/1.73 sq m using serum, plasma, or whole bOrdered By: aYz Dee on 12-21-2024 GFR/1.73 sq M.predicted among non-blacks MDRD (S/P/Bld) [Vol rate/Area] 103 mL/min/{1.73_m2} >[address] [facility] Comment on above: mL/min/1.73m2 CKD-EP I Creatinine Equation (2020) [facility]: Farzad Camilo on 12-21-2024 Glucose [Mass/Vol] 171 mg/dL High 74-106 [facility] Comment on above: MANAGEMENT OF PATIEN T CARE PER NURSING PROTOCOL Hematocrit Auto (Bld) [Volum e fraction]Ordered By: Yaz Dee on 12-21-2024 Hematocrit (Bld) [Volume fraction] 45.3 % 40-[address] [facility] Hemoglobin measurementOrdere d By: Yaz Dee on 12-21-2024 Hemoglobin (Bld) [Mass/Vol] 14.2 g/dL 13.0-16.[address] [facility] Immature granulocytes/100 WB C Auto (Bld)Ordered By: Yaz Dee on 12-21-2024 Immature granulocytes/100 WBC (Bld) 0.300 % 0.0-0.[address] [facility] Comment on above: IG% - Immature Granu locytes (promyelocytes, myelocytes and metamyelocytes) > 1% indicates that a LEFT SHIFT is Present. MCV (mean corpuscular volume ) determinationOrdered By: Yaz Dee on 12-21-2024 MCV (RBC) [Entitic vol] 86.6 fL 80-94 [facility] Mean corpuscular hemoglobin (MCH) determinationOrdered By: Yaz Dee on 12-21-2024 MCH (RBC) [Entitic mass] 27.2 pg 27.0-32.[address] [facility] Mean corpuscular hemoglobin concentration (MCHC) determinationOrdered By: Yaz Dee on 12-21-2024 MCHC (RBC) [Mass/Vol] 31.3 g/dL Low 32-36 [facility] Mean platelet volume determi nationOrdered By: Yaz Dee on 12-21-2024 Platelet mean volume (Bld) [Entitic vol] 9.8 fL 6.2-12.[address] [facility] Monocyte percentageOrdered B y: Yaz Dee on 12-21-2024 Monocytes/100 WBC (Bld) 13.4 % High 0-10 [facility] Neutrophil percentageOrdered By: Yaz Dee on 12-21-2024 Neutrophils/100 WBC (Bld) 68.8 % 47-[address] [facility] Nucleated red blood cell per centageOrdered By: Yaz Dee on 12-21-2024 Nucleated RBC/100 WBC (Bld) [Ratio] 0 % 0-[address] [facility] Platelet countOrdered By: Aram Dee on 12-21-2024 Platelets (Bld) [#/Vol] 191 10*3/uL 150-[address] [facility] Potassium measurement (mass/ volume)Ordered By: Yaz Dee on 12-21-2024 Potassium (Unsp spec) [Mass/Vol] 4.5 mmol/L 3.3-5.[address] [facility] Comment on above: Hemolysis present, R esults could be affected. RBC Auto (Bld) [#/Vol]Ordere d By: Yaz Dee on 12-21-2024 RBC (Bld) [#/Vol] 5.23 10*6/uL 4.6-6.2 [facility] Serum creatinine measurement (mass/volume)Ordered By: Yaz Dee on 12-21-2024 Creatinine [Mass/Vol] 0.86 mg/dL 0.70-1.20 [facility] Serum glucose measurement (m ass/volume)Ordered By: Yaz Dee on 12-21-2024 Glucose [Mass/Vol] 126 mg/dL High 70-99 [facility] Serum or plasma calcium scott urement (mass/volume)Ordered By: Yaz Dee on 12-21-2024 Calcium [Mass/Vol] 9.2 mg/dL 7.6-11.0 [facility] Serum or plasma urea nitroge n measurement (mass/volume)Ordered By: Yaz Dee on 12-21-2024 Urea nitrogen [Mass/Vol] 12 mg/dL 4-[address] [facility] Sodium levelOrdered By: Unique Dee on 12-21-2024 Sodium [Moles/Vol] 140 mmol/L 133-145 [facility] White blood cell (WBC) count Ordered By: Yaz Dee on 12-21-2024 WBC (Bld) [#/Vol] 7.4 10*3/uL 4.4-11.0 [facility] Absolute lymphocyte countOrd ered By: Robles Botello on 12-20-2024 Lymphocytes Auto (Unsp spec) [#/Vol] 0.89 10*3/uL 0.83-4.[address] [facility] Absolute neutrophil countOrd ered By: Robles Botello on 12-20-2024 Neutrophils (Bld) [#/Vol] 6.4 10*3/uL 2.0-7.[address] [facility] Anion gap in Serum or Plasma Ordered By: Robles Botello on 12-20-2024 Anion gap [Moles/Vol] 10 mmol/L 5-15 [facility] Automated lymphocyte count a s percentage of total leukocytesOrdered By: Robles oBtello on 12-20-2024 Lymphocytes/100 WBC Auto (Unsp spec) 10.6 % Low 19-[address] [facility] BUN/creatinine ratioOrdered By: Robles Botello on 12-20-2024 Urea nitrogen/Creatinine [Mass ratio] 12.3 mg/mg 10-[address] [facility] Basic Metabolic Profile (BMP )on 12-20-2024 BUN/CRE 12.3 RATIO Normal 10-[address] [facility] Comment on above: Performed By: #### L 100.0500, L500.4050 #### [facility] [address] [place], [address] Calcium [Mass/Vol] 9.2 mg/dL Normal 7.6-11.0 [facility] Comment on above: Performed By: #### L 100.0500, L500.4050 #### [facility] [address] [place], [address] Chloride [Moles/Vol] 98 mmol/L Normal 98-108 [facility] Comment on above: Performed By: #### L 100.0500, L500.4050 #### [facility] [address] [place], [address] CO2 [Moles/Vol] 26.7 mmol/L Normal 21.0-32.[address] [facility] Comment on above: Performed By: #### L 100.0500, L500.4050 #### [facility] [address] [place], [address] Creatinine [Mass/Vol] 0.94 mg/dL Normal 0.70-1.20 [facility] Comment on above: Performed By: #### L 100.0500, L500.4050 #### [facility] [address] [place], [address] ECRCL 128.93 ml/min Normal 50-[address] [facility] Comment on above: Performed By: #### L 100.0500, L500.4050 #### [facility] [address] [place], [address] GAP 10 Normal 5-[address] [facility] Comment on above: Performed By: #### L 100.0500, L500.4050 #### [facility] [address] [place], [address] GFR/1.73 sq M.predicted among non-blacks MDRD (S/P/Bld) [Vol rate/Area] 97 mL/min/{1.73_m2} Normal >[address] [facility] Comment on above: Result Comment: mL/m in/1.73m2 CKD-EPI Creatinine Equation (2020) Performed By: #### L 100.0500, L500.4050 #### [facility] [address] [place], [address] Glucose [Mass/Vol] 121 mg/dL High 70-99 [facility] Comment on above: Performed By: #### L 100.0500, L500.4050 #### [facility] [address] [place], [address] Potassium [Moles/Vol] 4.2 mmol/L Normal 3.3-5.1 [facility] Comment on above: Performed By: #### L 100.0500, L500.4050 #### [facility] [address] [place], [address] Sodium [Moles/Vol] 134 mmol/L Normal 133-145 [facility] Comment on above: Performed By: #### L 100.0500, L500.4050 #### [facility] [address] [place], [address] Urea nitrogen [Mass/Vol] 12 mg/dL Normal 4-[address] [facility] Comment on above: Performed By: #### L 100.0500, L500.4050 #### [facility] [address] [place], [address] Basophil percentageOrdered B y: Robles Botello on 12-20-2024 Basophils/100 WBC (Bld) 0.5 % 0-1 [facility] Bedside Glucoseon 12-20-2024 FINGERSTICK GLU 222 mg/dL High 74-[address] [facility] Comment on above: Result Comment: STEPHANIE ATKINSON OF PATIENT CARE PER NURSING PROTOCOL Performed By: #### L 501.080 #### [facility] [address] [place], [address] CBC W/Diff, Automatedon 07-2 -2024 Absolute Lymph 0.89 X10 3/uL Normal 0.83-4.[address] [facility] Comment on above: Performed By: #### L 100.0500, L500.4050 #### [facility] [address] [place], [address] Absolute Neut 6.4 X10 3/uL Normal 2.0-7.[address] [facility] Comment on above: Performed By: #### L 100.0500, L500.4050 #### [facility] [address] [place], [address] Basophils/100 WBC (Bld) 0.5 % Normal 0-1 [facility] Comment on above: Performed By: #### L 100.0500, L500.4050 #### [facility] [address] [place], [address] Eosinophils/100 WBC (Bld) 1.6 % Normal 0-[address] [facility] Comment on above: Performed By: #### L 100.0500, L500.4050 #### [facility] [address] [place], [address] Erythrocyte distribution width (RBC) [Ratio] 13.9 % Normal 11.6-14.[address] [facility] Comment on above: Performed By: #### L 100.0500, L500.4050 #### [facility] [address] [place], [address] Hematocrit (Bld) [Volume fraction] 46.2 % Normal 40-[address] [facility] Comment on above: Performed By: #### L 100.0500, L500.4050 #### [facility] [address] [place], [address] Hemoglobin (Bld) [Mass/Vol] 14.3 g/dL Normal 13.0-16.[address] [facility] Comment on above: Performed By: #### L 100.0500, L500.4050 #### [facility] [address] [place], [address] IG% 0.400 Normal 0.0-0.[address] [facility] Comment on above: Result Comment: IG% - Immature Granulocytes (promyelocytes, myelocytes and metamyelocytes) > 1% indicates that a LEFT SHIFT is Present. Performed By: #### L 100.0500, L500.4050 #### [facility] [address] [place], [address] Lymphocytes/100 WBC (Bld) 10.6 % Low 19-[address] [facility] Comment on above: Performed By: #### L 100.0500, L500.4050 #### [facility] [address] [place], [address] MCH (RBC) [Entitic mass] 26.9 pg Low 27.0-32.[address] [facility] Comment on above: Performed By: #### L 100.0500, L500.4050 #### [facility] [address] [place], [address] MCHC (RBC) [Mass/Vol] 31.0 g/dL Low 32-36 [facility] Comment on above: Performed By: #### L 100.0500, L500.4050 #### [facility] [address] [place], [address] MCV (RBC) [Entitic vol] 87.0 fL Normal 80-94 [facility] Comment on above: Performed By: #### L 100.0500, L500.4050 #### [facility] [address] [place], [address] Monocytes/100 WBC (Bld) 10.6 % High 0-10 [facility] Comment on above: Performed By: #### L 100.0500, L500.4050 #### [facility] [address] [place], [address] Neutrophils/100 WBC (Bld) 76.3 % High 47-[address] [facility] Comment on above: Performed By: #### L 100.0500, L500.4050 #### [facility] [address] [place], [address] Nucleated RBC (Bld) [#/Vol] 0 10*3/uL Normal 0-[address] [facility] Comment on above: Performed By: #### L 100.0500, L500.4050 #### [facility] [address] [place], [address] Platelet mean volume (Bld) [Entitic vol] 9.8 fL Normal 6.2-12.[address] [facility] Comment on above: Performed By: #### L 100.0500, L500.4050 #### [facility] [address] [place], [address] Platelets (Bld) [#/Vol] 198 10*3/uL Normal 150-[address] [facility] Comment on above: Performed By: #### L 100.0500, L500.4050 #### [facility] [address] [place], [address] RBC (Bld) [#/Vol] 5.31 10*6/uL Normal 4.6-6.2 [facility] Comment on above: Performed By: #### L 100.0500, L500.4050 #### [facility] [address] [place], [address] RDW SD 44.4 fl High 35.1-43.[address] [facility] Comment on above: Performed By: #### L 100.0500, L500.4050 #### [facility] [address] [place], [address] WBC (Bld) [#/Vol] 8.4 10*3/uL Normal 4.4-11.0 [facility] Comment on above: Performed By: #### L 100.0500, L500.4050 #### [facility] [address] [place], [address] CTA Chest W/WO Contraston CTA Chest W/WO Contrast [facility] Imaging Services [address] [place] [address] CTA Chest W/WO Contrast MR#: [id number] Acct: [id number] Name: CARLOS ALBERTO KELLEY Rep #: [id number] : 1970 M 54 From: Shawn Lewis MD PCP: Dr. Jhonatan Garcia DO Status: [facility] ER Study: CTA Chest W/WO Contrast Date of Exam: 12/20/24 Exam# [id number] Ordering Dr: Nguyễn Al DO PROCEDURE: CTA [...] No embolism, dissection, or pneumonia. Reading Location: [place] [address] CC: Dr. Jhonatan Garcia DO; Dr. Nguyễn Al DO Pcb Designer: Signed Normal [facility] Carbon dioxide, total [Moles /volume] in Central venous bloodOrdered By: Robles Botello on 12-20-2024 CO2 [Moles/Vol] 26.7 mmol/L 21.0-32.[address] [facility] Chloride assayOrdered By: Otis Botello on 12-20-2024 Chloride [Moles/Vol] 98 mmol/L 98-108 [facility] Consultation - Surgicalon Consultation - Surgical [facility] Medical Records Department [address] [place] [address] Consultation - Surgical 12/20/24 1439 MR#: [id number] Acct: [id number] Name: CARLOS ALBERTO KELLEY Jr. Rep #: [id number] : 1970 54 From: Austin Estrada MD [...] CT scan. Patient has been in a retirement recently secondary to immobility because of a right lower extremity external fixator. He presented to the emergency department yesterday for chest pain and was getting a CT scan to rule out a DVT PE. He was discharged home to the retirement last night and return today for the [...] Type Severity Reaction Status Date / Time Yhuxtfc-HLM-LlA Reductase Allergy Mild Hives Verified 12/20/24 13:07 Inhibitor Social History housing: retirement Smoking Status: Former smoker Physical Exam Narrative Right upper Extremity Inspection: Dorsal hand swelling with superficial blistering. No streaking erythema. Palpation: No crepitus. Compartments of the forearm and the hand are all soft. Some tenderness to palpation of the dors (more content not included)... Normal [facility] D-Dimer Quantitative (DVT/PE )on 12-20-2024 D-DIMER QUANT 0.58 FEU/ug/m Invalid Interpretation Code 0.27-0.[address] [facility] Comment on above: Result Comment: D-Di joanne ELEVATED (>0.49): Additional studies and clinical assessments are indicated to conclude diagnosis of: Deep Vein Thrombosis (DVT) or Pulmonary Embolism (PE) CRITICAL VALUE CALLED TO LEXIS 12/20/24 0020 Marquez Swain. RESULTS READ BACK BY SAME. Performed By: #### L 100.0500, L500.4050 #### [facility] [address], [address] Emergency Department Summary on 12-20-2024 Emergency Department Summary [facility] Medical Records Department [address] [place] [address] Emergency Department Summary 12/20/24 MR#: [id number] Acct: [id number] Name: CARLOS ALBERTO KELLEY Jr. Rep #: [id number] : 1970 54 From: Robles Botello MD [...] the swelling but is also very itchy. [facility] Medical History Ankle fracture, right Insomnia Obstructive [...] Type Severity Reaction Status Date / Time Wjaeqje-VRU-MtD Reductase Allergy Mild Hives Verified 12/20/24 13:07 Inhibitor Social History housing: retirement Smoking Status: Former smoker ROS ROS ED [...] he can (more content not included)... Normal [facility] Eosinophil percentageOrdered By: Robles Botello on 12-20-2024 Eosinophils/100 WBC (Bld) 1.6 % 0-[address] [facility] Erythrocyte distribution wid th ratioOrdered By: Robles Botello on 12-20-2024 Erythrocyte distribution width (RBC) [Ratio] 13.9 % 11.6-14.[address] [facility] Erythrocyte distribution wid th standard deviationOrdered By: Robles Botello on 12-20-2024 Erythrocyte distribution width (RBC) [Ratio] 44.4 fl High 35.1-43.[address] [facility] Glomerular filtration rate ( GFR) estimation/1.73 sq m using serum, plasma, or whole bOrdered By: Robles Botello on 12-20-2024 GFR/1.73 sq M.predicted among non-blacks MDRD (S/P/Bld) [Vol rate/Area] 97 mL/min/{1.73_m2} >[address] [facility] Comment on above: mL/min/1.73m2 CKD-EP I Creatinine Equation (2020) H AND P Exam - Hospital[place] 12-20-2024 H&P Exam - Hospitalist [facility] Medical Records Department [address] [place] [address] H P Exam - Hospitalist 12/20/24 1750 MR#: [id number] Acct: [id number] Name: CARLOS ALBERTO KELLEY Jr. Rep #: [id number] : 1970 54 From: Yaz Dee MD PCP: Dr. Jhonatan Garcia, DO Status:ADM BRENNA Location: MS3 [id number] HPI - General General Date of Admission: 12/20/24 Date of Service: 12/20/24 Chief Complaint: Right hand pain and swelling HPI Narrative CARLOS ALBERTO KELLEY, is l30-azod-vum male history of hypertension, gout, cardiomyopathy, GERD, diabetes, depression and anxiety, KOFFI who presented [facility] ED 12/20/2024 for right hand pain, [...] Type Severity Reaction Status Date / Time Qiqaqtd-BDH-MbR Reductase Allergy Mild Hives Verified 12/20/24 13:07 Inhibitor Social History housing: retirement Smoking Status: Former smoker ROS ROS Narrative [...] Denies weak (more content not included)... Normal [facility] Hand Min 3 Viewson Hand Min 3 Views [facility] Imaging Services [address] [place], [place] [id number] Hand Min 3 Views MR#: [id number] Acct: [id number] Name: CARLOS ALBERTO KELLEY Jr. Rep #: [id number] : 1970 M 54 From: Trace Lundberg MD PCP: Dr. Jhonatan Garcia DO Status: REG ER Study: Hand Min 3 Views Date of Exam: 12/20/24 Exam# [id number] Ordering Dr: Robles Botello MD PROCEDURE: HAND [...] swelling. No significant bony abnormality Reading Location: [id number] CC: Dr. Robles Botello MD; Dr. Jhonatan Garcia DO Pcb Designer: Signed Normal [facility] Hematocrit Auto (Bld) [Volum e fraction]Ordered By: Robles Botello on 12-20-2024 Hematocrit (Bld) [Volume fraction] 46.2 % 40-[address] [facility] Hemoglobin measurementOrdere d By: Robles Botello on 12-20-2024 Hemoglobin (Bld) [Mass/Vol] 14.3 g/dL 13.0-16.[address] [facility] Immature granulocytes/100 WB C Auto (Bld)Ordered By: Robles Botello on 12-20-2024 Immature granulocytes/100 WBC (Bld) 0.400 % 0.0-0.[address] [facility] Comment on above: IG% - Immature Granu locytes (promyelocytes, myelocytes and metamyelocytes) > 1% indicates that a LEFT SHIFT is Present. MCV (mean corpuscular volume ) determinationOrdered By: Robles Botello on 12-20-2024 MCV (RBC) [Entitic vol] 87.0 fL 80-94 [facility] Mean corpuscular hemoglobin (MCH) determinationOrdered By: Robles Botello on 12-20-2024 MCH (RBC) [Entitic mass] 26.9 pg Low 27.0-32.[address] [facility] Mean corpuscular hemoglobin concentration (MCHC) determinationOrdered By: Robles Botello on 12-20-2024 MCHC (RBC) [Mass/Vol] 31.0 g/dL Low 32-36 [facility] Mean platelet volume determi nationOrdered By: Robles Botello on 12-20-2024 Platelet mean volume (Bld) [Entitic vol] 9.8 fL 6.2-12.[address] [facility] Monocyte percentageOrdered B y: Robles Botello on 12-20-2024 Monocytes/100 WBC (Bld) 10.6 % High 0-10 [facility] Neutrophil percentageOrdered By: Robles Botello on 12-20-2024 Neutrophils/100 WBC (Bld) 76.3 % High 47-[address] [facility] Nucleated red blood cell per centageOrdered By: Robles Botello on 12-20-2024 Nucleated RBC/100 WBC (Bld) [Ratio] 0 % 0-[address] [facility] Platelet countOrdered By: Otis Botello on 12-20-2024 Platelets (Bld) [#/Vol] 198 10*3/uL 150-[address] [facility] Potassium measurement (mass/ volume)Ordered By: Robles Botello on 12-20-2024 Potassium (Unsp spec) [Mass/Vol] 4.2 mmol/L 3.3-5.[address] [facility] RBC Auto (Bld) [#/Vol]Ordere d By: Robles Botello on 12-20-2024 RBC (Bld) [#/Vol] 5.31 10*6/uL 4.6-6.2 [facility] Serum creatinine measurement (mass/volume)Ordered By: Robles Botello on 12-20-2024 Creatinine [Mass/Vol] 0.94 mg/dL 0.70-1.20 [facility] Serum glucose measurement (m ass/volume)Ordered By: Robles Botello on 12-20-2024 Glucose [Mass/Vol] 121 mg/dL High 70-99 [facility] Serum or plasma calcium scott urement (mass/volume)Ordered By: Robles Botello on 12-20-2024 Calcium [Mass/Vol] 9.2 mg/dL 7.6-11.0 [facility] Serum or plasma urea nitroge n measurement (mass/volume)Ordered By: Robles Botello on 12-20-2024 Urea nitrogen [Mass/Vol] 12 mg/dL 4-[address] [facility] Sodium levelOrdered By: Liu Botello on 12-20-2024 Sodium [Moles/Vol] 134 mmol/L 133-145 [facility] Troponin T HS 2 HRon 025 Trop T High Sen 16 ng/L Normal <=[address] [facility] Comment on above: Performed By: #### L 100.0500, L500.4050 #### [facility] Laboratory [address] [place], [place], [id number] Troponin T HS 4 HRon 025 Trop T High Sen Normal <=[address] [facility] Comment on above: Result Comment: [facility] DEPARTED ER. Performed By: #### L 100.0500, L500.4050 #### [facility] [address] [place], [address] Troponin T.cardiac [Mass/vol ume] in Serum or Plasma by High sensitivity methodOrdered By: Nguyễn Al on 12-20-2024 Troponin T.cardiac High sensitivity method [Mass/Vol] 16 ng/L <[address] [facility] White blood cell (WBC) count Ordered By: Robles Botello on 12-20-2024 WBC (Bld) [#/Vol] 8.4 10*3/uL 4.4-11.0 [facility] 12 Lead EKGon 12-19-2024 12 Lead EKG [facility] Cardiovascular Services [address] [place] [address] 12 Lead EKG 12/19/24 2229 MR#: [id number] Acct: [id number] Name: CARLOS ALBERTO KELLEY Jr. Rep #: [id number] : 1970 54 From: Landry Etienne MD [...] Left axis deviation Abnormal ECG Confirmed by ANNE-MARIE PETTIT, LANDRY ([id number]), online content editor DONNA TOLENTINO ([id number]) on 12/23/2024 9:43:55 AM Referred By: TL Confirmed By: LANDRY ETIENNE MD 12/23/24 0943 Date Landry Etienne MD CC: Dr. Jhonatan Garcia DO; Dr. Nguyễn Al DO Signed Normal [facility] Absolute lymphocyte countOrd ered By: Nguyễn Al on 12-19-2024 Lymphocytes Auto (Unsp spec) [#/Vol] 1.20 10*3/uL 0.83-4.[address] [facility] Absolute neutrophil countOrd ered By: Nguyễn Al on 12-19-2024 Neutrophils (Bld) [#/Vol] 6.1 10*3/uL 2.0-7.[address] [facility] Anion gap in Serum or Plasma Ordered By: Nguyễn Al on 12-19-2024 Anion gap [Moles/Vol] 10 mmol/L 5-15 [facility] Automated lymphocyte count a s percentage of total leukocytesOrdered By: Nguyễn Al on 12-19-2024 Lymphocytes/100 WBC Auto (Unsp spec) 14.4 % Low 19-[address] [facility] BUN/creatinine ratioOrdered By: Nguyễn Al on 12-19-2024 Urea nitrogen/Creatinine [Mass ratio] 13.8 mg/mg 10- [facility] Basic Metabolic Profile (BMP )on 12-19-2024 BUN/CRE 13.8 RATIO Normal 10- [facility] Comment on above: Performed By: #### L 100.0500, L500.4050 #### [facility] Laboratory [address] [place], [address] Calcium [Mass/Vol] 8.8 mg/dL Normal 7.6-11.0 [facility] Comment on above: Performed By: #### L 100.0500, L500.4050 #### [facility] [address] [place], [address] Chloride [Moles/Vol] 97 mmol/L Low 98-108 [facility] Comment on above: Performed By: #### L 100.0500, L500.4050 #### [facility] [address] [place], [address] CO2 [Moles/Vol] 25.7 mmol/L Normal 21.0-32.[address] [facility] Comment on above: Performed By: #### L 100.0500, L500.4050 #### [facility] Laboratory [address] [place], [address] Creatinine [Mass/Vol] 1.01 mg/dL Normal 0.70-1.20 [facility] Comment on above: Performed By: #### L 100.0500, L500.4050 #### [facility] [address] [place], [address] ECRCL 120.67 ml/min Normal 50-[address] [facility] Comment on above: Performed By: #### L 100.0500, L500.4050 #### [facility] [address] [place], [address] GAP 10 Normal 5-[address] [facility] Comment on above: Performed By: #### L 100.0500, L500.4050 #### [facility] [address] [place], [address] GFR/1.73 sq M.predicted among non-blacks MDRD (S/P/Bld) [Vol rate/Area] 89 mL/min/{1.73_m2} Normal >[address] [facility] Comment on above: Result Comment: mL/m in/1.73m2 CKD-EPI Creatinine Equation (2020) Performed By: #### L 100.0500, L500.4050 #### [facility] [address] [place], [address] Glucose [Mass/Vol] 180 mg/dL High 70-99 [facility] Comment on above: Performed By: #### L 100.0500, L500.4050 #### [facility] [address] [place], [address] Potassium [Moles/Vol] 4.1 mmol/L Normal 3.3-5.1 [facility] Comment on above: Performed By: #### L 100.0500, L500.4050 #### [facility] [address] [place], [address] Sodium [Moles/Vol] 133 mmol/L Normal 133-145 [facility] Comment on above: Performed By: #### L 100.0500, L500.4050 #### [facility] [address] [place], [address] Urea nitrogen [Mass/Vol] 14 mg/dL Normal 4-[address] [facility] Comment on above: Performed By: #### L 100.0500, L500.4050 #### [facility] [address] [place], [address] Basophil percentageOrdered B y: Nguyễn Al on 12-19-2024 Basophils/100 WBC (Bld) 0.5 % 0-1 [facility] CBC W/Diff, Automatedon 11-27 Absolute Lymph 1.20 X10 3/uL Normal 0.83-4.[address] [facility] Comment on above: Performed By: #### L 100.0500, L500.4050 #### [facility] [address] [place], [address] Absolute Neut 6.1 X10 3/uL Normal 2.0-7.[address] [facility] Comment on above: Performed By: #### L 100.0500, L500.4050 #### [facility] [address] [place], [address] Basophils/100 WBC (Bld) 0.5 % Normal 0-1 [facility] Comment on above: Performed By: #### L 100.0500, L500.4050 #### [facility] [address] [place], [address] Eosinophils/100 WBC (Bld) 1.3 % Normal 0-[address] [facility] Comment on above: Performed By: #### L 100.0500, L500.4050 #### [facility] [address] [place], [address] Erythrocyte distribution width (RBC) [Ratio] 13.9 % Normal 11.6-14.[address] [facility] Comment on above: Performed By: #### L 100.0500, L500.4050 #### [facility] [address] [place], [address] Hematocrit (Bld) [Volume fraction] 44.2 % Normal 40-[address] [facility] Comment on above: Performed By: #### L 100.0500, L500.4050 #### [facility] [address] [place], [address] Hemoglobin (Bld) [Mass/Vol] 13.7 g/dL Normal 13.0-16.[address] [facility] Comment on above: Performed By: #### L 100.0500, L500.4050 #### [facility] [address] [place], [address] IG% 0.200 Normal 0.0-0.[address] [facility] Comment on above: Result Comment: IG% - Immature Granulocytes (promyelocytes, myelocytes and metamyelocytes) > 1% indicates that a LEFT SHIFT is Present. Performed By: #### L 100.0500, L500.4050 #### [facility] [address] [place], [address] Lymphocytes/100 WBC (Bld) 14.4 % Low 19-[address] [facility] Comment on above: Performed By: #### L 100.0500, L500.4050 #### [facility] [address] [place], [address] MCH (RBC) [Entitic mass] 27.2 pg Normal 27.0-32.[address] [facility] Comment on above: Performed By: #### L 100.0500, L500.4050 #### [facility] [address] [place], [address] MCHC (RBC) [Mass/Vol] 31.0 g/dL Low 32-36 [facility] Comment on above: Performed By: #### L 100.0500, L500.4050 #### [facility] [address] [place], [address] MCV (RBC) [Entitic vol] 87.7 fL Normal 80-94 [facility] Comment on above: Performed By: #### L 100.0500, L500.4050 #### [facility] [address] [place], [address] Monocytes/100 WBC (Bld) 10.6 % High 0-10 [facility] Comment on above: Performed By: #### L 100.0500, L500.4050 #### [facility] [address] [place], [address] Neutrophils/100 WBC (Bld) 73.0 % High 47-[address] [facility] Comment on above: Performed By: #### L 100.0500, L500.4050 #### [facility] [address] [place], [address] Nucleated RBC (Bld) [#/Vol] 0 10*3/uL Normal 0-[address] [facility] Comment on above: Performed By: #### L 100.0500, L500.4050 #### [facility] [address] [place], [address] Platelet mean volume (Bld) [Entitic vol] 9.8 fL Normal 6.2-12.[address] [facility] Comment on above: Performed By: #### L 100.0500, L500.4050 #### [facility] [address] [place], [address] Platelets (Bld) [#/Vol] 177 10*3/uL Normal 150-[address] [facility] Comment on above: Performed By: #### L 100.0500, L500.4050 #### [facility] [address] [place], [address] RBC (Bld) [#/Vol] 5.04 10*6/uL Normal 4.6-6.2 [facility] Comment on above: Performed By: #### L 100.0500, L500.4050 #### [facility] [address] [place], [address] RDW SD 44.8 fl High 35.1-43.[address] [facility] Comment on above: Performed By: #### L 100.0500, L500.4050 #### [facility] [address] [place], [address] WBC (Bld) [#/Vol] 8.4 10*3/uL Normal 4.4-11.0 [facility] Comment on above: Performed By: #### L 100.0500, L500.4050 #### [facility] [address] [place], [address] Carbon dioxide, total [Moles /volume] in Central venous bloodOrdered By: Nguyễn Al on 12-19-2024 CO2 [Moles/Vol] 25.7 mmol/L 21.0-32.[address] [facility] Chest 1 View (Portable)on Chest 1 View (Portable) [facility] Imaging Services [address] [place] [address] Chest 1 View (Portable) MR#: [id number] Acct: [id number] Name: CARLOS ALBERTO KELLEY Jr. Rep #: [id number] : 1970 M 54 From: Jordan Avalos MD PCP: STACEY Pena Status: PRE ER Study: Chest 1 View (Portable) Date of Exam: 12/19/24 Exam# [id number] Ordering Dr: Nguyễn Al DO PROCEDURE: CHEST [...] atelectasis, or edema also possible. Reading Location: [id number] CC: STACEY Correa; Dr. Nguyễn Al DO Pcb Designer: Signed Normal [facility] Chloride assayOrdered By: Shankar Al on 12-19-2024 Chloride [Moles/Vol] 97 mmol/L Low 98-108 [facility] Emergency Department Summary on 12-19-2024 Emergency Department Summary [facility] Medical Records Department [address] [place] [address] Emergency Department Summary 12/19/24 MR#: [id number] Acct: [id number] Name: CARLOS ALBERTO KELLEY Jr. Rep #: [id number] : 1970 54 From: Nguyễn Tavera PCP: Dr. Jhonatan Garcia DO Status:DEP ER Location: ED HPI History of Present Illness Chief Complaint: Chest Pain Informant: patient Narrative Narrative: Brought in by EMS [facility] chest pain at rest. Intermittent sharp sensation and reports dyspnea with it. No recent cough. No nausea. No radicular symptoms. History of paroxysmal A-fib on Coumadin. 8 weeks ago right ankle fracture dislocation with current Ex-Fix. He was manage at [place]. He has been at the facility for [...] Immobilization, Prior DVT or PE or Cancer [facility] Medical History Ankle fracture, right Insomnia Obstructive [...] Type Severity Reaction Status Date / Time Jovenqc-RKV-QuI Reductase Allergy Mild Hives Verified 12/19/24 22:20 [...] Temperature Sour (more content not included)... Normal [facility] Eosinophil percentageOrdered By: Nguyễn Al on 12-19-2024 Eosinophils/100 WBC (Bld) 1.3 % 0-[address] [facility] Erythrocyte distribution wid th ratioOrdered By: Nguyễn Al on 12-19-2024 Erythrocyte distribution width (RBC) [Ratio] 13.9 % 11.6-14.[address] [facility] Erythrocyte distribution wid th standard deviationOrdered By: Nguyễn Al on 12-19-2024 Erythrocyte distribution width (RBC) [Ratio] 44.8 fl High 35.1-43.[address] [facility] Glomerular filtration rate ( GFR) estimation/1.73 sq m using serum, plasma, or whole bOrdered By: Nguyễn Al on 12-19-2024 GFR/1.73 sq M.predicted among non-blacks MDRD (S/P/Bld) [Vol rate/Area] 89 mL/min/{1.73_m2} >[address] [facility] Comment on above: mL/min/1.73m2 CKD-EP I Creatinine Equation (2020) Hematocrit Auto (Bld) [Volum e fraction]Ordered By: Nguyễn Al on 12-19-2024 Hematocrit (Bld) [Volume fraction] 44.2 % 40-[address] [facility] Hemoglobin measurementOrdere d By: Nguyễn Al on 12-19-2024 Hemoglobin (Bld) [Mass/Vol] 13.7 g/dL 13.0-16.[address] [facility] Immature granulocytes/100 WB C Auto (Bld)Ordered By: Nguyễn Al on 12-19-2024 Immature granulocytes/100 WBC (Bld) 0.200 % 0.0-0.[address] [facility] Comment on above: IG% - Immature Granu locytes (promyelocytes, myelocytes and metamyelocytes) > 1% indicates that a LEFT SHIFT is Present. International normalized rat io (INR) calculationOrdered By: Nguyễn Al on 12-19-2024 INR Coag (Bld) [Relative time] 1.5 {INR} [facility] L501.4021on 12-19-2024 Trop T High Sen 11 ng/L Normal <=[address] [facility] Comment on above: Performed By: #### L 100.0500, L500.4050 #### [facility] Laboratory [facility] [address] [place], [place], [id number] MCV (mean corpuscular volume ) determinationOrdered By: Nguyễn Al on 12-19-2024 MCV (RBC) [Entitic vol] 87.7 fL 80-94 [facility] Mean corpuscular hemoglobin (MCH) determinationOrdered By: Nguyễn Al on 12-19-2024 MCH (RBC) [Entitic mass] 27.2 pg 27.0-32.[address] [facility] Mean corpuscular hemoglobin concentration (MCHC) determinationOrdered By: Ngyuễn Al on 12-19-2024 MCHC (RBC) [Mass/Vol] 31.0 g/dL Low 32-36 [facility] Mean platelet volume determi nationOrdered By: Nguyễn Al on 12-19-2024 Platelet mean volume (Bld) [Entitic vol] 9.8 fL 6.2-12.[address] [facility] Monocyte percentageOrdered B y: Nguyễn Al on 12-19-2024 Monocytes/100 WBC (Bld) 10.6 % High 0-10 [facility] Neutrophil percentageOrdered By: Nguyễn Al on 12-19-2024 Neutrophils/100 WBC (Bld) 73.0 % High 47-[address] [facility] Nucleated red blood cell per centageOrdered By: Nguyễn Al on 12-19-2024 Nucleated RBC/100 WBC (Bld) [Ratio] 0 % 0-[address] [facility] Platelet countOrdered By: Shankar Al on 12-19-2024 Platelets (Bld) [#/Vol] 177 10*3/uL 150-[address] [facility] Potassium measurement (mass/ volume)Ordered By: Nguyễn Le on 12-19-2024 Potassium (Unsp spec) [Mass/Vol] 4.1 mmol/L 3.3-5.[address] [facility] Prothrombin Time w/INRon INR Coag (PPP) [Relative time] 1.5 {INR} Normal [facility] Comment on above: Performed By: #### L 100.0500, L500.4050 #### [facility] Laboratory [address] [place], [address] PT Coag (PPP) [Time] 18.1 s High 11.7-14.9 [facility] Comment on above: Performed By: #### L 100.0500, L500.4050 #### [facility] [address] [place], [address] Prothrombin timeOrdered By: Nguyễn Le on 12-19-2024 PT Coag (PPP) [Time] 18.1 s High 11.7-14.9 [facility] RBC Auto (Bld) [#/Vol]Ordere d By: Nguyễn Le on 12-19-2024 RBC (Bld) [#/Vol] 5.04 10*6/uL 4.6-6.2 [facility] Serum creatinine measurement (mass/volume)Ordered By: Nguyễn Le on 12-19-2024 Creatinine [Mass/Vol] 1.01 mg/dL 0.70-1.20 [facility] Serum glucose measurement (m ass/volume)Ordered By: Nguyễn Al on 12-19-2024 Glucose [Mass/Vol] 180 mg/dL High 70-99 [facility] Serum or plasma calcium scott urement (mass/volume)Ordered By: Nguyễn Al on 12-19-2024 Calcium [Mass/Vol] 8.8 mg/dL 7.6-11.0 [facility] Serum or plasma urea nitroge n measurement (mass/volume)Ordered By: Nguyễn Al on 12-19-2024 Urea nitrogen [Mass/Vol] 14 mg/dL 4-[address] [facility] Sodium levelOrdered By: Nguyễn Al on 12-19-2024 Sodium [Moles/Vol] 133 mmol/L 133-145 [facility] Troponin T.cardiac [Mass/vol ume] in Serum or Plasma by High sensitivity methodOrdered By: Nguyễn Al on 12-19-2024 Troponin T.cardiac High sensitivity method [Mass/Vol] 11 ng/L <[address] [facility] White blood cell (WBC) count Ordered By: Nguyễn Al on 12-19-2024 WBC (Bld) [#/Vol] 8.4 10*3/uL 4.4-11.0 [facility] .GFRon 12-13-2024 Estimated Glomerular Filtration Rate 109 ml/min/1.73sqm Normal [facility] Comment on above: Result Comment: Stages [...] GFR, ADIFF, DIMER, CBC, PBNP, TROPHS #### [id number] [place], [place] [address] BMPon 12-13-2024 BUN/Creatinine Ratio 29 ratio High 7-27 [facility] Comment on above: Order Comment: Speci men hemolyzed. Notified Thinker Thingcey @12/13/2024 09:23:59 EDT BP Performed By: #### A ELY REYES, BMP, MG, GFR, ADIFF, DIMER, CBC, PBNP, TROPHS #### [address] [address] Calcium [Mass/Vol] 8.8 mg/dL Normal 8.4-10.2 [facility] Comment on above: Order Comment: Speci men hemolyzed. Notified Thinker Thingcey @12/13/2024 09:23:59 EDT BP Performed By: #### A ELY REYES, BMP, MG, GFR, ADIFF, DIMER, CBC, PBNP, TROPHS #### [address] [address] Chloride [Moles/Vol] 102 mmol/L Normal 98-107 [facility] Comment on above: Order Comment: Speci men hemolyzed. Notified Thinker Thingcey @12/13/2024 09:23:59 EDT BP Performed By: #### A ELY REYES, BMP, MG, GFR, ADIFF, DIMER, CBC, PBNP, TROPHS #### [address] [address] CO2 [Moles/Vol] 32 mmol/L High 22-29 [facility] Comment on above: Order Comment: Speci men hemolyzed. Notified Thinker Thingcey @12/13/2024 09:23:59 EDT BP Performed By: #### A ELY REYES, BMP, MG, GFR, ADIFF, DIMER, CBC, PBNP, TROPHS #### [address] [address] Creatinine [Mass/Vol] 0.73 mg/dL Normal 0.67-1.17 [facility] Comment on above: Order Comment: Speci men hemolyzed. Notified Thinker Thingcey @12/13/2024 09:23:59 EDT BP Performed By: #### A ELY REYES, BMP, MG, GFR, ADIFF, DIMER, CBC, PBNP, TROPHS #### [address] [address] Electrolyte Balance 4.0 mEq/L Normal 4.0-15.0 [facility] Comment on above: Order Comment: Speci men hemolyzed. Notified Romay @12/13/2024 09:23:59 EDT BP Performed By: #### A ELY REYES, BMP, MG, GFR, ADIFF, DIMER, CBC, PBNP, TROPHS #### [address] [address] Glucose [Mass/Vol] 137 mg/dL High 70-105 [facility] Comment on above: Order Comment: Speci men hemolyzed. Notified Thinker Thingeliezery @12/13/2024 09:23:59 EDT BP Performed By: #### A ELY REYES, BMP, MG, GFR, ADIFF, DIMER, CBC, PBNP, TROPHS #### [address] [address] Potassium [Moles/Vol] 3.9 mmol/L Normal 3.5-5.1 [facility] Comment on above: Order Comment: Speci men hemolyzed. Notified Thinker Thingeliezery @12/13/2024 09:23:59 EDT BP Performed By: #### A ELY REYES, JULIÁN, MG, GFR, ADIFF, DIMER, CBC, PBNP, TROPHS #### [address] [address] Sodium [Moles/Vol] 138 mmol/L Normal 136-145 [facility] Comment on above: Order Comment: Speci men hemolyzed. Notified Thinker Thingeliezery @12/13/2024 09:23:59 EDT BP Performed By: #### A ELY REYES, BMP, MG, GFR, ADIFF, DIMER, CBC, PBNP, TROPHS #### [address] [address] Urea nitrogen [Mass/Vol] 21 mg/dL High 7-18 [facility] Comment on above: Order Comment: Speci men hemolyzed. Notified Damon @12/13/2024 09:23:59 EDT BP Performed By: #### A ERIC, MDW, BMP, MG, GFR, ADIFF, DIMER, CBC, PBNP, TROPHS #### [id number] [place], [place] [address] LABORATORYOrdered By: SYSTEM SYSTEM on 12-13-2024 Calcium [...] 12-13-2024 Magnesium [Mass/Vol] 1.7 mg/dL Low 1.8-2.4 [facility] Comment on above: Performed By: #### A ELY REYES, BMP, MG, GFR, ADIFF, DIMER, CBC, PBNP, TROPHS #### [address] [address] .GFRon 12-12-2024 Estimated Glomerular Filtration Rate 111 ml/min/1.73sqm Normal [facility] Comment on above: Result Comment: Stages [...] GFR, ADIFF, DIMER, CBC, PBNP, TROPHS #### [address] [address] BMPon 12-12-2024 BUN/Creatinine Ratio 22 ratio Normal 7-27 [facility] Comment on above: Performed By: #### A ELY REYES, BMP, MG, GFR, ADIFF, DIMER, CBC, PBNP, TROPHS #### [address] [address] Calcium [Mass/Vol] 9.2 mg/dL Normal 8.4-10.2 [facility] Comment on above: Performed By: #### A ELY REYES, BMP, MG, GFR, ADIFF, DIMER, CBC, PBNP, TROPHS #### [address] [address] Chloride [Moles/Vol] 103 mmol/L Normal 98-107 [facility] Comment on above: Performed By: #### A ELY REYES, BMP, MG, GFR, ADIFF, DIMER, CBC, PBNP, TROPHS #### [address] [address] CO2 [Moles/Vol] 32 mmol/L High 22-29 [facility] Comment on above: Performed By: #### A ELY REYES, BMP, MG, GFR, ADIFF, DIMER, CBC, PBNP, TROPHS #### [address] [address] Creatinine [Mass/Vol] 0.69 mg/dL Normal 0.67-1.17 [facility] Comment on above: Performed By: #### A ELY REYES, BMP, MG, GFR, ADIFF, DIMER, CBC, PBNP, TROPHS #### [address] [address] Electrolyte Balance 7.0 mEq/L Normal 4.0-15.0 [facility] Comment on above: Performed By: #### A ELY REYES, JULIÁN, MG, GFR, ADIFF, DIMER, CBC, PBNP, TROPHS #### [address] [address] Glucose [Mass/Vol] 115 mg/dL High 70-105 [facility] Comment on above: Performed By: #### A ELY REYES, BMP, MG, GFR, ADIFF, DIMER, CBC, PBNP, TROPHS #### [address] [address] Potassium [Moles/Vol] 3.8 mmol/L Normal 3.5-5.1 [facility] Comment on above: Performed By: #### A ELY REYES, BMP, MG, GFR, ADIFF, DIMER, CBC, PBNP, TROPHS #### [address] [address] Sodium [Moles/Vol] 142 mmol/L Normal 136-145 [facility] Comment on above: Performed By: #### A ELY REYES, BMP, MG, GFR, ADIFF, DIMER, CBC, PBNP, TROPHS #### [id number] [place], [place] [address] Urea nitrogen [Mass/Vol] 15 mg/dL Normal 7-18 [facility] Comment on above: Performed By: #### A ELY REYES, BMP, MG, GFR, ADIFF, DIMER, CBC, PBNP, TROPHS #### [id number] [place], [place] [address] LABORATORYOrdered By: SYSTEM SYSTEM on 12-12-2024 Calcium [...] a homogeneous sandwich chemiluminescent immunoassay based on [employer] technology. Urea nitrogen [Mass/Vol] 15 mg/dL Normal 7 - 18 mg/dL AO ADM SS Urea nitrogen/Creatinine [Mass ratio] 22 ratio Normal 7 - 27 ratio AO ADM SS MGon 12-12-2024 Magnesium [Mass/Vol] 2.0 mg/dL Normal 1.8-2.4 [facility] Comment on above: Performed By: #### A ELY REYES, BMP, MG, GFR, ADIFF, DIMER, CBC, PBNP, TROPHS #### [id number] [place], [place] [address] TROPHSon 12-12-2024 High Sensitivity Troponin I 12 ng/L Normal 0-76 [facility] Comment on above: Result Comment: High Sensitive Troponin I Reference Ranges: Female: 0-51 ng/L Male: 0-76 ng/L Testing performed on [employer] using a homogeneous sandwich chemiluminescent immunoassay based on Airph[employer] technology. Performed By: #### A ELY REYES, BMP, MG, GFR, ADIFF, DIMER, CBC, PBNP, TROPHS #### [id number] [place], [place] [address] XR CHEST 1 VIEWon 12-12-2024 XR CHEST [...] 12/12/2024 6:38:29 AM Ordering Provider: VENITA Kate [facility] .Auto Diffon 12-11-2024 Basophil, Absolute 0.0 10 3/mcL Normal 0.0-0.3 [facility] Comment on above: Performed By: #### A ELY REYES, BMP, MG, GFR, ADIFF, DIMER, CBC, PBNP, TROPHS #### [address] [address] Basophils/100 WBC (Bld) 0.5 % Normal 0.0-2.[address] [facility] Comment on above: Performed By: #### A ELY REYES, BMP, MG, GFR, ADIFF, DIMER, CBC, PBNP, TROPHS #### [address] [address] Eosinophil, Absolute 0.1 10 3/mcL Normal 0.0-0.7 [facility] Comment on above: Performed By: #### A ELY REYES, JULIÁN, MG, GFR, ADIFF, DIMER, CBC, PBNP, TROPHS #### [address] [address] Eosinophils/100 WBC (Bld) 1.3 % Normal 0.0-6.0 [facility] Comment on above: Performed By: #### A ELY REYES, JULIÁN, MG, GFR, ADIFF, DIMER, CBC, PBNP, TROPHS #### [address] [address] Lymphocyte, Absolute 0.8 10 3/mcL Low 0.9-4.3 [facility] Comment on above: Performed By: #### A ELY REYES, BMP, MG, GFR, ADIFF, DIMER, CBC, PBNP, TROPHS #### [address] [address] Lymphocytes/100 WBC (Bld) 9.5 % Low 20.0-40.0 [facility] Comment on above: Performed By: #### A MD ERICW, BMP, MG, GFR, ADIFF, DIMER, CBC, PBNP, TROPHS #### [address] [address] Monocyte, Absolute 0.9 10 3/mcL Normal 0.1-1.4 [facility] Comment on above: Performed By: #### A ERIC, W, BMP, MG, GFR, ADIFF, DIMER, CBC, PBNP, TROPHS #### [address] [address] Monocytes/100 WBC (Bld) 10.0 % Normal 2.0-13.[address] [facility] Comment on above: Performed By: #### A MD ERICW, BMP, MG, GFR, ADIFF, DIMER, CBC, PBNP, TROPHS #### [address] [address] Neutrophils/100 WBC (Bld) 78.7 % High 50.0-75.0 [facility] Comment on above: Performed By: #### A MD ERICW, BMP, MG, GFR, ADIFF, DIMER, CBC, PBNP, TROPHS #### [address] [address] .GFRon 12-11-2024 Estimated Glomerular Filtration Rate 105 ml/min/1.73sqm Normal [facility] Comment on above: Result Comment: Stages [...] the eGFR results. Performed By: #### A MD ERICW, BMP, MG, GFR, ADIFF, DIMER, CBC, PBNP, TROPHS #### [address] [address] .MDWon 12-11-2024 Monocyte Distribution Width 18.16 Normal 0.00-20.00 [facility] Comment on above: Result Comment: For ED adult patients suspected of sepsis, MDW<=20.0 does not rule out sepsis or risk of sepsis Performed By: #### A ELY REYES, BMP, MG, GFR, ADIFF, DIMER, CBC, PBNP, TROPHS #### [address] [address] .NEUABSon 12-11-2024 Neutrophil, Absolute 6.9 10 3/mcL Normal 2.3-8.1 [facility] Comment on above: Performed By: #### A ELY REYES, BMP, MG, GFR, ADIFF, DIMER, CBC, PBNP, TROPHS #### [place] [address] CBCon 12-11-2024 Erythrocyte distribution width (RBC) [Ratio] 14.9 % Normal 11.5-15.5 [facility] Comment on above: Performed By: #### A ELY REYES, BMP, MG, GFR, ADIFF, DIMER, CBC, PBNP, TROPHS #### [address] [address] Hematocrit (Bld) [Volume fraction] 43.0 % Normal 40.0-52.0 [facility] Comment on above: Performed By: #### A ELY REYES, BMP, MG, GFR, ADIFF, DIMER, CBC, PBNP, TROPHS #### [address] [address] Hgb 14.0 G/dL Normal 13.0-17.5 [facility] Comment on above: Performed By: #### A ELY REYES, BMP, MG, GFR, ADIFF, DIMER, CBC, PBNP, TROPHS #### [address] [address] MCH (RBC) [Entitic mass] 28.2 pg Normal 27.0-33.0 [facility] Comment on above: Performed By: #### A ELY REYES, JULIÁN, MG, GFR, ADIFF, DIMER, CBC, PBNP, TROPHS #### [address] [address] MCHC 32.7 G/dL Normal 32.0-36.0 [facility] Comment on above: Performed By: #### A ELY REYES, JULIÁN, MG, GFR, ADIFF, DIMER, CBC, PBNP, TROPHS #### [address] [address] MCV (RBC) [Entitic vol] 86.1 fL Normal 81.0-100.[address] [facility] Comment on above: Performed By: #### A ELY REYES, JULIÁN, MG, GFR, ADIFF, DIMER, CBC, PBNP, TROPHS #### [address] [address] Platelet 208 10 3/mcL Normal 150-450 [facility] Comment on above: Performed By: #### A ELY REYES, JULIÁN, MG, GFR, ADIFF, DIMER, CBC, PBNP, TROPHS #### [address] [address] Platelet mean volume (Bld) [Entitic vol] 7.9 fL Normal 6.4-10.5 [facility] Comment on above: Performed By: #### A ELY REYES, JULIÁN, MG, GFR, ADIFF, DIMER, CBC, PBNP, TROPHS #### [address] [address] RBC 4.99 10 6/mcL Normal 4.50-6.00 [facility] Comment on above: Performed By: #### A ELY REYES, JULIÁN, MG, GFR, ADIFF, DIMER, CBC, PBNP, TROPHS #### [address] [address] WBC 8.8 10 3/mcL Normal 4.5-10.8 [facility] Comment on above: Performed By: #### A ELY REYES, BMP, MG, GFR, ADIFF, DIMER, CBC, PBNP, TROPHS #### [place] [id number] CMPon 12-11-2024 Albumin Level 2.8 G/dL Low 3.5-5.0 [facility] Comment on above: Performed By: #### A ELY REYES, BMP, MG, GFR, ADIFF, DIMER, CBC, PBNP, TROPHS #### [place] [address] Albumin/Globulin [Mass ratio] 0.6 {ratio} Low 1.1-2.5 [facility] Comment on above: Performed By: #### A ELY REYES, BMP, MG, GFR, ADIFF, DIMER, CBC, PBNP, TROPHS #### [place] [address] ALP [Catalytic activity/Vol] 100 U/L Normal 40-135 [facility] Comment on above: Performed By: #### A ELY REYES, BMP, MG, GFR, ADIFF, DIMER, CBC, PBNP, TROPHS #### [place] [address] ALT [Catalytic activity/Vol] 18 U/L Normal 16-63 [facility] Comment on above: Performed By: #### A ELY REYES, BMP, MG, GFR, ADIFF, DIMER, CBC, PBNP, TROPHS #### [place] [address] AST [Catalytic activity/Vol] 8 U/L Low 10-40 [facility] Comment on above: Performed By: #### A ELY REYES, BMP, MG, GFR, ADIFF, DIMER, CBC, PBNP, TROPHS #### [place] [address] Bili Total 0.3 mg/dL Normal 0.2-1.0 [facility] Comment on above: Result Comment: Use of this assay is not recommended for patients undergoing treatment with eltrombopag due to the potential for falsely elevated results. Performed By: #### A ELY REYES, BMP, MG, GFR, ADIFF, DIMER, CBC, PBNP, TROPHS #### [address] [address] BUN/Creatinine Ratio 12 ratio Normal 7-27 [facility] Comment on above: Performed By: #### A ELY REYES, BMP, MG, GFR, ADIFF, DIMER, CBC, PBNP, TROPHS #### [place] [address] Calcium [Mass/Vol] 8.9 mg/dL Normal 8.4-10.2 [facility] Comment on above: Performed By: #### A ELY REYES, BMP, MG, GFR, ADIFF, DIMER, CBC, PBNP, TROPHS #### [address] [address] Chloride [Moles/Vol] 98 mmol/L Normal 98-107 [facility] Comment on above: Performed By: #### A ELY REYES, BMP, MG, GFR, ADIFF, DIMER, CBC, PBNP, TROPHS #### [address] [address] CO2 [Moles/Vol] 32 mmol/L High 22-29 [facility] Comment on above: Performed By: #### A ELY REYES, BMP, MG, GFR, ADIFF, DIMER, CBC, PBNP, TROPHS #### [place] [address] Creatinine [Mass/Vol] 0.82 mg/dL Normal 0.67-1.17 [facility] Comment on above: Performed By: #### A MD ERICW, BMP, MG, GFR, ADIFF, DIMER, CBC, PBNP, TROPHS #### [place] [address] Electrolyte Balance 4.0 mEq/L Normal 4.0-15.0 [facility] Comment on above: Performed By: #### A ELY REYES, BMP, MG, GFR, ADIFF, DIMER, CBC, PBNP, TROPHS #### [address] [address] Globulin 4.6 G/dL High 2.7-4.4 [facility] Comment on above: Performed By: #### A ELY REYES, BMP, MG, GFR, ADIFF, DIMER, CBC, PBNP, TROPHS #### [address] [address] Glucose [Mass/Vol] 165 mg/dL High 70-105 [facility] Comment on above: Performed By: #### A ELY REYES, BMP, MG, GFR, ADIFF, DIMER, CBC, PBNP, TROPHS #### [address] [address] Potassium [Moles/Vol] 3.6 mmol/L Normal 3.5-5.1 [facility] Comment on above: Performed By: #### A ELY REYES, BMP, MG, GFR, ADIFF, DIMER, CBC, PBNP, TROPHS #### [address] [address] Sodium [Moles/Vol] 134 mmol/L Low 136-145 [facility] Comment on above: Performed By: #### A ELY REYES, BMP, MG, GFR, ADIFF, DIMER, CBC, PBNP, TROPHS #### [address] [address] Total Protein 7.4 G/dL Normal 6.4-8.2 [facility] Comment on above: Performed By: #### A ELY REYES, BMP, MG, GFR, ADIFF, DIMER, CBC, PBNP, TROPHS #### [address] [address] Urea nitrogen [Mass/Vol] 10 mg/dL Normal 7-18 [facility] Comment on above: Performed By: #### A ELY REYES, BMP, MG, GFR, ADIFF, DIMER, CBC, PBNP, TROPHS #### [address] [address] [address] ANGIOGRAPHY CHEST W/CONTR [place] 12-11-2024 CT [...] 3:29:36 AM Ordering Provider: DELORES MURO Normal [facility] DIMERon 12-11-2024 D-Dimer 593 ng/mL D-DU High 0-230 [facility] Comment on above: Result Comment: The [...] ADIFF, DIMER, CBC, PBNP, TROPHS #### [address] [place], [place] [address] LABORATORYOrdered By: SYSTEM SYSTEM on 12-11-2024 Troponin I.cardiac DL <= 0.01 ng/mL [Mass/Vol] 10 ng/L Normal 0 - 76 ng/L AO ADM SS Comment on above: Interpretive Data: H igh Sensitive Troponin I Reference Ranges: Female: 0-51 ng/L Male: 0-76 ng/L Testing performed on [employer] using a homogeneous sandwich chemiluminescent immunoassay based on Airph[employer] technology. Albumin BCP dye [Mass/Vol] 2.8 G/dL [...] ng/L Male: 0-76 ng/L Testing performed on [employer] using a homogeneous sandwich chemiluminescent immunoassay based on Air[employer] technology. Urea nitrogen [Mass/Vol] 10 mg/dL Normal [...] 12-11-2024 Lipase Level 15 U/L Low 16-77 [facility] Comment on above: Performed By: #### A ERIC, MDW, BMP, MG, GFR, ADIFF, DIMER, CBC, PBNP, TROPHS #### [facility] [address] [place], [place] [address] No Panel Informationon 12-11 Legionella Urine Ag Presumptive negative for L. pneumophila serogroup 1 antigen in urine, suggesting no recent or current infection. Legionnaire's disease cannot be ruled out since other serogroups and species may also cause disease. [facility] Streptococcus Pneumoniae Urine Antig Presumptive negative for pneumococcal pneumonia, suggesting no current or recent pneumococcal infection. Infection due to Strep pneumoniae cannot be ruled out since the antigen present in the sample may be below the detection limit of the test. [facility] Comment on above: This test has not be en evaluated on patients taking antibiotics for greater than 24 hours or on patients who have recently completed an antibiotic regimen. The accuracy of this test has not been proven in young children. PBNPon 12-11-2024 Natriuretic peptide B (Bld) [Mass/Vol] 1099 pg/mL High 0-125 [facility] Comment on above: Result Comment: NT-p roBNP results of less than 300 pg/mL effectively rules out acute congestive heart failure with 99% negative predictive value. Performed By: #### A ELY REYES, JULIÁN, MG, GFR, ADIFF, DIMER, CBC, PBNP, TROPHS #### [place] [id number] [facility] High Sensitivity Troponin I 10 ng/L Normal 0-76 [facility] Comment on above: Result Comment: High Sensitive Troponin I Reference Ranges: Female: 0-51 ng/L Male: 0-76 ng/L Testing performed on [employer] using a homogeneous sandwich chemiluminescent immunoassay based on [employer] technology. Performed By: #### A ELY REYES, JULIÁN, MG, GFR, ADIFF, DIMER, CBC, PBNP, TROPHS #### [place] [id number] High Sensitivity Troponin I 10 ng/L Normal 0-76 [facility] Comment on above: Result Comment: High Sensitive Troponin I Reference Ranges: Female: 0-51 ng/L Male: 0-76 ng/L Testing performed on [employer] using a homogeneous sandwich chemiluminescent immunoassay based on [employer] technology. Performed By: #### A ELY REYES, JULIÁN, MG, GFR, ADIFF, DIMER, CBC, PBNP, TROPHS #### [address] [address] XR CHEST 1 VIEWon 12-11-2024 XR CHEST [...] 12/11/2024 1:19:48 AM Ordering Provider: DELORES Kate [facility] .Auto Diffon 11-28-2024 Basophil, Absolute 0.0 10 3/mcL Normal 0.0-0.3 [facility] Comment on above: Performed By: #### A DIFF, ANEU, BMP, CBC, GFR #### [address] [address] Basophils/100 WBC (Bld) 0.8 % Normal 0.0-2.5 [facility] Comment on above: Performed By: #### A DIFF, ANEU, BMP, CBC, GFR #### [address] [address] Eosinophil, Absolute 0.1 10 3/mcL Normal 0.0-0.7 [facility] Comment on above: Performed By: #### A DIFF, ANEU, BMP, CBC, GFR #### [address] [address] Eosinophils/100 WBC (Bld) 1.7 % Normal 0.0-6.0 [facility] Comment on above: Performed By: #### A DIFF, ANEU, BMP, CBC, GFR #### [address] [address] Lymphocyte, Absolute 0.9 10 3/mcL Normal 0.9-4.3 [facility] Comment on above: Performed By: #### A DIFF, ANEU, BMP, CBC, GFR #### [address] [address] Lymphocytes/100 WBC (Bld) 15.5 % Low 20.0-40.0 [facility] Comment on above: Performed By: #### A DIFF, ANEU, BMP, CBC, GFR #### [place] [id number] [place] [address] Monocyte, Absolute 0.6 10 3/mcL Normal 0.1-1.4 [facility] Comment on above: Performed By: #### A DIFF, ANEU, BMP, CBC, GFR #### [address] [address] Monocytes/100 WBC (Bld) 11.2 % Normal 2.0-13.0 [facility] Comment on above: Performed By: #### A DIFF, ANEU, BMP, CBC, GFR #### [address] [address] Neutrophils/100 WBC (Bld) 70.8 % Normal 50.0-75.0 [facility] Comment on above: Performed By: #### A DIFF, ANEU, BMP, CBC, GFR #### [address] [address] .GFRon 11-28-2024 Estimated Glomerular Filtration Rate 107 ml/min/1.73sqm Normal [facility] Comment on [...] A DIFF, ANEU, BMP, CBC, GFR #### [facility] [address] [place] [address] .NEUABSon 11-28-2024 Neutrophil, Absolute 4.1 10 3/mcL Normal 2.3-8.1 [facility] Comment on above: Performed By: #### A DIFF, ANEU, BMP, CBC, GFR #### [address] [address] BMPon 11-28-2024 BUN/Creatinine Ratio 11.7 ratio Normal 10.0-22.0 [facility] Comment on above: Performed By: #### A DIFF, ANEU, BMP, CBC, GFR #### [address] [address] Calcium [Mass/Vol] 9.2 mg/dL Normal 8.7-10.4 [facility] Comment on above: Performed By: #### A DIFF, ANEU, BMP, CBC, GFR #### [place] [id number] Chloride [Moles/Vol] 101 mmol/L Normal 98-110 [facility] Comment on above: Performed By: #### A DIFF, ANEU, BMP, CBC, GFR #### [place] [id number] CO2 [Moles/Vol] 31 mmol/L Normal 22-32 [facility] Comment on above: Performed By: #### A DIFF, ANEU, BMP, CBC, GFR #### [place] [id number] Creatinine [Mass/Vol] 0.77 mg/dL Normal 0.60-1.40 [facility] Comment on above: Result Comment: Test ing performed on [employer] analyzer using enzymatic creatinine methodology. Performed By: #### A DIFF, ANEU, BMP, CBC, GFR #### [place] [id number] Electrolyte Balance 5.0 mEq/L Normal 4.0-15.0 [facility] Comment on above: Performed By: #### A DIFF, ANEU, BMP, CBC, GFR #### [place] [id number] Glucose [Mass/Vol] 100 mg/dL Normal 70-110 [facility] Comment on above: Performed By: #### A DIFF, ANEU, BMP, CBC, GFR #### [place] [id number] Potassium [Moles/Vol] 4.0 mmol/L Normal 3.5-5.0 [facility] Comment on above: Performed By: #### A DIFF, ANEU, BMP, CBC, GFR #### [address] [address] Sodium [Moles/Vol] 137 mmol/L Normal 136-145 [facility] Comment on above: Performed By: #### A DIFF, ANEU, BMP, CBC, GFR #### [place] [address] Urea nitrogen [Mass/Vol] 9.0 mg/dL Normal 8.0-22.0 [facility] Comment on above: Performed By: #### A DIFF, ANEU, BMP, CBC, GFR #### [place] [address] CBCon 11-28-2024 Erythrocyte distribution width (RBC) [Ratio] 15.1 % Normal 11.5-15.5 [facility] Comment on above: Performed By: #### A DIFF, ANEU, BMP, CBC, GFR #### [place] [address] Hematocrit (Bld) [Volume fraction] 42.1 % Normal 40.0-52.0 [facility] Comment on above: Performed By: #### A DIFF, ANEU, BMP, CBC, GFR #### [place] [address] Hgb 13.8 G/dL Normal 13.0-17.5 [facility] Comment on above: Performed By: #### A DIFF, ANEU, BMP, CBC, GFR #### [place] [address] MCH (RBC) [Entitic mass] 29.0 pg Normal 27.0-33.0 [facility] Comment on above: Performed By: #### A DIFF, ANEU, BMP, CBC, GFR #### [place] [id number] MCHC 32.8 G/dL Normal 32.0-36.0 [facility] Comment on above: Performed By: #### A DIFF, ANEU, BMP, CBC, GFR #### [place] [id number] [place] [address] MCV (RBC) [Entitic vol] 88.3 fL Normal 81.0-100.0 [facility] Comment on above: Performed By: #### A DIFF, ANEU, BMP, CBC, GFR #### [place] [id number] [place] [address] Platelet 195 10 3/mcL Normal 150-450 [facility] Comment on above: Performed By: #### A DIFF, ANEU, BMP, CBC, GFR #### [place] [id number] [place] [address] Platelet mean volume (Bld) [Entitic vol] 8.4 fL Normal 6.4-10.5 [facility] Comment on above: Performed By: #### A DIFF, ANEU, BMP, CBC, GFR #### [address] [address] RBC 4.77 10 6/mcL Normal 4.50-6.00 [facility] Comment on above: Performed By: #### A DIFF, ANEU, BMP, CBC, GFR #### [address] [address] WBC 5.8 10 3/mcL Normal 4.5-10.8 [facility] Comment on above: Performed By: #### A DIFF, ANEU, BMP, CBC, GFR #### [address] [address] LABORATORYOrdered By: Moustapha Winslow on 11-28-2024 Blood Glucose Testing Reason Routine (11/28/24 5:00 PM) [facility] Glucose [Mass/Vol] 89 mg/dL Normal 70 - 110 mg/dL [facility] LABORATORYOrdered By: Andrea Mcgarry on 11-28-2024 Blood Glucose Testing Reason Routine (11/28/24 12:01 PM) [facility] Glucose [Mass/Vol] 91 mg/dL Normal 70 - 110 mg/dL [facility] Blood Glucose Testing Reason Routine (11/28/24 8:15 AM) [facility] Glucose [Mass/Vol] 93 mg/dL Normal 70 - 110 mg/dL [facility] LABORATORYOrdered By: SYSTEM SYSTEM on 11-28-2024 [...] above: Interpretive Data: T esting performed on [employer] analyzer using enzymatic creatinine methodology. Electrolyte Balance [...] 8.4 fL Normal 6.4 - 10.5 fL Workflow SS Platelets (Bld) [#/Vol] 195 103/mcL [...] on 11-27-2024 Time of Stated Blood Glucose [id number] [facility] .Auto Diffon 11-26-2024 Basophil, Absolute 0.0 10 3/mcL Normal 0.0-0.3 [facility] Comment on above: Performed By: #### A DIFF, ANEU, BMP, CBC, GFR #### [address] [address] Basophils/100 WBC (Bld) 0.4 % Normal 0.0-2.5 [facility] Comment on above: Performed By: #### A DIFF, ANEU, BMP, CBC, GFR #### [address] [address] Eosinophil, Absolute 0.0 10 3/mcL Normal 0.0-0.7 [facility] Comment on above: Performed By: #### A DIFF, ANEU, BMP, CBC, GFR #### [address] [address] Eosinophils/100 WBC (Bld) 0.7 % Normal 0.0-6.0 [facility] Comment on above: Performed By: #### A DIFF, ANEU, BMP, CBC, GFR #### [address] [address] Lymphocyte, Absolute 0.8 10 3/mcL Low 0.9-4.3 [facility] Comment on above: Performed By: #### A DIFF, ANEU, BMP, CBC, GFR #### [address] [address] Lymphocytes/100 WBC (Bld) 12.2 % Low 20.0-40.0 [facility] Comment on above: Performed By: #### A DIFF, ANEU, BMP, CBC, GFR #### [address] [address] Monocyte, Absolute 0.7 10 3/mcL Normal 0.1-1.4 [facility] Comment on above: Performed By: #### A DIFF, ANEU, BMP, CBC, GFR #### [address] [address] Monocytes/100 WBC (Bld) 11.2 % Normal 2.0-13.0 [facility] Comment on above: Performed By: #### A DIFF, ANEU, BMP, CBC, GFR #### [address] [address] Neutrophils/100 WBC (Bld) 75.5 % High 50.0-75.0 [facility] Comment on above: Performed By: #### A DIFF, ANEU, BMP, CBC, GFR #### [address] [address] .GFRon 11-26-2024 Estimated Glomerular Filtration Rate 103 ml/min/1.73sqm Normal [facility] Comment on [...] A DIFF, ANEU, BMP, CBC, GFR #### [address] [address] .NEUABSon 11-26-2024 Neutrophil, Absolute 4.9 10 3/mcL Normal 2.3-8.1 [facility] Comment on above: Performed By: #### A DIFF, ANEU, BMP, CBC, GFR #### [address] [address] BMPon 11-26-2024 BUN/Creatinine Ratio 11.5 ratio Normal 10.0-22.0 [facility] Comment on above: Performed By: #### A DIFF, ANEU, BMP, CBC, GFR #### [address] [address] Calcium [Mass/Vol] 9.0 mg/dL Normal 8.7-10.4 [facility] Comment on above: Performed By: #### A DIFF, ANEU, BMP, CBC, GFR #### [address] [address] Chloride [Moles/Vol] 100 mmol/L Normal 98-110 [facility] Comment on above: Performed By: #### A DIFF, ANEU, BMP, CBC, GFR #### [address] [address] CO2 [Moles/Vol] 29 mmol/L Normal 22-32 [facility] Comment on above: Performed By: #### A DIFF, ANEU, BMP, CBC, GFR #### [address] [address] Creatinine [Mass/Vol] 0.87 mg/dL Normal 0.60-1.40 [facility] Comment on above: Result Comment: Test ing performed on EcoScraps analyzer using enzymatic creatinine methodology. Performed By: #### A DIFF, ANEU, BMP, CBC, GFR #### [address] [address] Electrolyte Balance 6.0 mEq/L Normal 4.0-15.0 [facility] Comment on above: Performed By: #### A DIFF, ANEU, BMP, CBC, GFR #### [address] [address] Glucose [Mass/Vol] 131 mg/dL High 70-110 [facility] Comment on above: Performed By: #### A DIFF, ANEU, BMP, CBC, GFR #### [address] [address] Potassium [Moles/Vol] 4.4 mmol/L Normal 3.5-5.0 [facility] Comment on above: Performed By: #### A DIFF, ANEU, BMP, CBC, GFR #### [address] [address] Sodium [Moles/Vol] 135 mmol/L Low 136-145 [facility] Comment on above: Performed By: #### A DIFF, ANEU, BMP, CBC, GFR #### [place] [address] Urea nitrogen [Mass/Vol] 10.0 mg/dL Normal 8.0-22.0 [facility] Comment on above: Performed By: #### A DIFF, ANEU, BMP, CBC, GFR #### [place] [address] CBCon 11-26-2024 Erythrocyte distribution width (RBC) [Ratio] 15.0 % Normal 11.5-15.5 [facility] Comment on above: Performed By: #### A DIFF, ANEU, BMP, CBC, GFR #### [place] [address] Hematocrit (Bld) [Volume fraction] 42.6 % Normal 40.0-52.0 [facility] Comment on above: Performed By: #### A DIFF, ANEU, BMP, CBC, GFR #### [place] [address] Hgb 14.2 G/dL Normal 13.0-17.5 [facility] Comment on above: Performed By: #### A DIFF, ANEU, BMP, CBC, GFR #### [place] [address] MCH (RBC) [Entitic mass] 29.5 pg Normal 27.0-33.0 [facility] Comment on above: Performed By: #### A DIFF, ANEU, BMP, CBC, GFR #### [place] [address] MCHC 33.4 G/dL Normal 32.0-36.0 [facility] Comment on above: Performed By: #### A DIFF, ANEU, BMP, CBC, GFR #### [place] [address] MCV (RBC) [Entitic vol] 88.4 fL Normal 81.0-100.0 [facility] Comment on above: Performed By: #### A DIFF, ANEU, BMP, CBC, GFR #### [address] [address] Platelet 140 10 3/mcL Low 150-450 [facility] Comment on above: Performed By: #### A DIFF, ANEU, BMP, CBC, GFR #### [place] [address] Platelet mean volume (Bld) [Entitic vol] 8.6 fL Normal 6.4-10.5 [facility] Comment on above: Performed By: #### A DIFF, ANEU, BMP, CBC, GFR #### [place] [address] RBC 4.82 10 6/mcL Normal 4.50-6.00 [facility] Comment on above: Performed By: #### A DIFF, ANEU, BMP, CBC, GFR #### [place] [address] WBC 6.5 10 3/mcL Normal 4.5-10.8 [facility] Comment on above: Performed By: #### A DIFF, ANEU, BMP, CBC, GFR #### [place] [address] LABORATORYOrdered By: SYSTEM SYSTEM on 11-26-2024 Basophils [...] above: Interpretive Data: T esting performed on EcoScra[employer] analyzer using enzymatic creatinine methodology. Electrolyte Balance 6.0 mEq/L Normal 4.0 - 15 .0 mEq/L ADM SS Eosinophils (Bld) [#/Vol] 0.0 103/mcL Normal 0.0 - 0.7 10^3/mcL AH Workflow SS Eosinophils/100 WBC (Bld) 0.7 % Normal 0.0 - 6.0 % AH Workflow SS Erythrocyte distribution width (RBC) [Ratio] 15.0 % Normal 11.5 - 15.5 % AH Workflow SS Estimated Glomerular Filtration Rate 103 [...] 10^3/mcL AH Workflow SS Lymphocytes/100 WBC (Bld) 12.2 % Low 20.0 - 40.0 % AH Workflow SS MCH (RBC) [Entitic mass] 29.5 [...] 75.5 % High 50.0 - 75.0 % Workflow SS Platelet mean volume (Bld) [Entitic vol] 8.6 fL Normal 6.4 - 10.5 fL Workflow SS Platelets (Bld) [#/Vol] 140 103/mcL [...] Routine cultures are held for 5 days. [facility] .Auto Diffon 11-25-2024 Basophil, Absolute 0.0 10 3/mcL Normal 0.0-0.3 [facility] Comment on above: Performed By: #### C BC, MG, GFR, ADIFF, BMP, ANEU #### [address] [address] Basophils/100 WBC (Bld) 0.4 % Normal 0.0-2.5 [facility] Comment on above: Performed By: #### C BC, MG, GFR, ADIFF, BMP, ANEU #### [address] [address] Eosinophil, Absolute 0.1 10 3/mcL Normal 0.0-0.7 [facility] Comment on above: Performed By: #### C BC, MG, GFR, ADIFF, BMP, ANEU #### [address] [address] Eosinophils/100 WBC (Bld) 0.6 % Normal 0.0-6.0 [facility] Comment on above: Performed By: #### C BC, MG, GFR, ADIFF, BMP, ANEU #### [address] [address] Lymphocyte, Absolute 0.8 10 3/mcL Low 0.9-4.3 [facility] Comment on above: Performed By: #### C BC, MG, GFR, ADIFF, BMP, ANEU #### [address] [address] Lymphocytes/100 WBC (Bld) 9.6 % Low 20.0-40.0 [facility] Comment on above: Performed By: #### C BC, MG, GFR, ADIFF, BMP, ANEU #### [address] [address] Monocyte, Absolute 0.8 10 3/mcL Normal 0.1-1.4 [facility] Comment on above: Performed By: #### C BC, MG, GFR, ADIFF, BMP, ANEU #### [address] [address] Monocytes/100 WBC (Bld) 9.3 % Normal 2.0-13.0 [facility] Comment on above: Performed By: #### C BC, MG, GFR, ADIFF, BMP, ANEU #### [address] [address] Neutrophils/100 WBC (Bld) 80.1 % High 50.0-75.0 [facility] Comment on above: Performed By: #### C BC, MG, GFR, ADIFF, BMP, ANEU #### [address] [address] .GFRon 11-25-2024 Estimated Glomerular Filtration Rate 102 ml/min/1.73sqm Normal [facility] Comment on [...] BC, MG, GFR, ADIFF, BMP, ANEU #### [place] [address] .NEUABSon 11-25-2024 Neutrophil, Absolute 7.1 10 3/mcL Normal 2.3-8.1 [facility] Comment on above: Performed By: #### A DIFF, ANEU, BMP, CBC, GFR #### [place] [address] BCIDon 11-25-2024 Acinetobacter carol-baumanii complex Not detected Normal Not Detected [facility] Comment on above: Performed By: #### C BC, MG, GFR, ADIFF, BMP, ANEU #### [place] [address] Bacteroides fragilis Not detected Normal Not Detected [facility] Comment on above: Performed By: #### C BC, MG, GFR, ADIFF, BMP, ANEU #### [place] [address] BCID Comment See Comment Normal [facility] Comment on [...] BC, MG, GFR, ADIFF, BMP, ANEU #### [place] [address] Moiz albicans Not detected Normal Not Detected [facility] Comment on above: Performed By: #### C BC, MG, GFR, ADIFF, BMP, ANEU #### [place] [address] Moiz auris Not detected Normal Not Detected [facility] Comment on above: Performed By: #### C BC, MG, GFR, ADIFF, BMP, ANEU #### [place] [address] Moiz glabrata Not detected Normal Not Detected [facility] Comment on above: Performed By: #### C BC, MG, GFR, ADIFF, BMP, ANEU #### [place] [address] Moiz krusei Not detected Normal Not Detected [facility] Comment on above: Performed By: #### C BC, MG, GFR, ADIFF, BMP, ANEU #### [place] [address] Moiz parapsilosis Not detected Normal Not Detected [facility] Comment on above: Performed By: #### C BC, MG, GFR, ADIFF, BMP, ANEU #### [place] [address] Moiz tropicalis Not detected Normal Not Detected [facility] Comment on above: Performed By: #### C BC, MG, GFR, ADIFF, BMP, ANEU #### [place] [address] Cryptococcus neoformans-gattii Not detected Normal Not Detected [facility] Comment on above: Performed By: #### C BC, MG, GFR, ADIFF, BMP, ANEU #### [place] [address] CTX-M (ESBL) Not Applicable Normal Not Detected [facility] Comment on above: Performed By: #### C BC, MG, GFR, ADIFF, BMP, ANEU #### [place] [address] E. Coli Not detected Normal Not Detected [facility] Comment on above: Performed By: #### C BC, MG, GFR, ADIFF, BMP, ANEU #### [place] [address] Enterobacter cloacae Complex Not detected Normal Not Detected [facility] Comment on above: Performed By: #### C BC, MG, GFR, ADIFF, BMP, ANEU #### [place] [address] Enterobacterales Not detected Normal Not Detected [facility] Comment on above: Performed By: #### C BC, MG, GFR, ADIFF, BMP, ANEU #### [place] [address] Enterococcus faecalis Not detected Normal Not Detected [facility] Comment on above: Performed By: #### C BC, MG, GFR, ADIFF, BMP, ANEU #### [place] [address] Enterococcus faecium Not detected Normal Not Detected [facility] Comment on above: Performed By: #### C BC, MG, GFR, ADIFF, BMP, ANEU #### [place] [address] Haemophilus influenzae Not detected Normal Not Detected [facility] Comment on above: Performed By: #### C BC, MG, GFR, ADIFF, BMP, ANEU #### [place] [address] IMP (Carbapenemase) Not Applicable Normal Not Detected [facility] Comment on above: Performed By: #### C BC, MG, GFR, ADIFF, BMP, ANEU #### [place] [address] Klebsiella aerogenes Not detected Normal Not Detected [facility] Comment on above: Performed By: #### C BC, MG, GFR, ADIFF, BMP, ANEU #### [place] [address] Klebsiella oxytoca Not detected Normal Not Detected [facility] Comment on above: Performed By: #### C BC, MG, GFR, ADIFF, BMP, ANEU #### [place] [address] Klebsiella pneumoniae group Not detected Normal Not Detected [facility] Comment on above: Performed By: #### C BC, MG, GFR, ADIFF, BMP, ANEU #### [place] [address] KPC (Carbapenemase) Not Applicable Normal Not Detected [facility] Comment on above: Performed By: #### C BC, MG, GFR, ADIFF, BMP, ANEU #### [place] [address] Listeria monocytogenes Not detected Normal Not Detected [facility] Comment on above: Performed By: #### C BC, MG, GFR, ADIFF, BMP, ANEU #### [place] [address] MCR-1 (Colistin Resistance) Not Applicable Normal Not Detected [facility] Comment on above: Performed By: #### C BC, MG, GFR, ADIFF, BMP, ANEU #### [place] [address] Mec A/C Not Applicable Normal Not Detected [facility] Comment on above: Performed By: #### C BC, MG, GFR, ADIFF, BMP, ANEU #### [place] [address] Mec A/C-MREJ (MRSA) Not detected Normal Not Detected [facility] Comment on above: Performed By: #### C BC, MG, GFR, ADIFF, BMP, ANEU #### [place] [address] NDM (Carbapenemase) Not Applicable Normal Not Detected [facility] Comment on above: Performed By: #### C BC, MG, GFR, ADIFF, BMP, ANEU #### [place] [address] Neisseria meningitidis (Encapsalated) Not detected Normal Not Detected [facility] Comment on above: Performed By: #### C BC, MG, GFR, ADIFF, BMP, ANEU #### [place] [address] OXA-48 like (Carbapenemase) Not Applicable Normal Not Detected [facility] Comment on above: Performed By: #### C BC, MG, GFR, ADIFF, BMP, ANEU #### [place] [address] Proteus Not detected Normal Not Detected [facility] Comment on above: Performed By: #### C BC, MG, GFR, ADIFF, BMP, ANEU #### [place] [address] Pseudomonas aeruginosa Not detected Normal Not Detected [facility] Comment on above: Performed By: #### C BC, MG, GFR, ADIFF, BMP, ANEU #### [place] [address] S. agalactiae Org specific cx Ql (Vag fld) Not detected Normal Not Detected [facility] Comment on above: Performed By: #### C BC, MG, GFR, ADIFF, BMP, ANEU #### [place] [address] Salmonella species Not detected Normal Not Detected [facility] Comment on above: Performed By: #### C BC, MG, GFR, ADIFF, BMP, ANEU #### [place] [address] Serratia marcescens Not detected Normal Not Detected [facility] Comment on above: Performed By: #### C BC, MG, GFR, ADIFF, BMP, ANEU #### [place] [address] Staphylococcus Detected Abnormal Not Detected [facility] Comment on above: Performed By: #### C BC, MG, GFR, ADIFF, BMP, ANEU #### [place] [address] Staphylococcus aureus Detected Abnormal Not Detected [facility] Comment on above: Result Comment: If S taphylococcus aureus is "Detected", an Infectious Disease physician consult is required on identification. Performed By: #### C BC, MG, GFR, ADIFF, BMP, ANEU #### [place] [address] Staphylococcus epidermidis Not detected Normal Not Detected [facility] Comment on above: Performed By: #### C BC, MG, GFR, ADIFF, BMP, ANEU #### [place] [address] Staphylococcus lugdunensis Not detected Normal Not Detected [facility] Comment on above: Performed By: #### C BC, MG, GFR, ADIFF, BMP, ANEU #### [place] [address] Stenotrophomonas maltophilia Not detected Normal Not Detected [facility] Comment on above: Performed By: #### C BC, MG, GFR, ADIFF, BMP, ANEU #### [place] [address] Streptococcus Not detected Normal Not Detected [facility] Comment on above: Performed By: #### C BC, MG, GFR, ADIFF, BMP, ANEU #### [place] [address] Streptococcus pneumoniae Not detected Normal Not Detected [facility] Comment on above: Performed By: #### C BC, MG, GFR, ADIFF, BMP, ANEU #### [place] [address] Streptococcus pyogenes Not detected Normal Not Detected [facility] Comment on above: Performed By: #### C BC, MG, GFR, ADIFF, BMP, ANEU #### [place] [address] Van A/B Not Applicable Normal Not Detected [facility] Comment on above: Performed By: #### C BC, MG, GFR, ADIFF, BMP, ANEU #### [place] [address] VIM (Carbapenemase) Not Applicable Normal Not Detected [facility] Comment on above: Performed By: #### C BC, MG, GFR, ADIFF, BMP, ANEU #### [place] [address] BMPon 11-25-2024 BUN/Creatinine Ratio 15.7 ratio Normal 10.0-22.0 [facility] Comment on above: Performed By: #### C BC, MG, GFR, ADIFF, BMP, ANEU #### [address] [address] Calcium [Mass/Vol] 9.1 mg/dL Normal 8.7-10.4 [facility] Comment on above: Performed By: #### C BC, MG, GFR, ADIFF, BMP, ANEU #### [address] [address] Chloride [Moles/Vol] 100 mmol/L Normal 98-110 [facility] Comment on above: Performed By: #### C BC, MG, GFR, ADIFF, BMP, ANEU #### [address] [address] CO2 [Moles/Vol] 24 mmol/L Normal 22-32 [facility] Comment on above: Performed By: #### C BC, MG, GFR, ADIFF, BMP, ANEU #### [address] [address] Creatinine [Mass/Vol] 0.89 mg/dL Normal 0.60-1.40 [facility] Comment on above: Result Comment: Test ing performed on [employer] analyzer using enzymatic creatinine methodology. Performed By: #### C BC, MG, GFR, ADIFF, BMP, ANEU #### [address] [address] Electrolyte Balance 12.0 mEq/L Normal 4.0-15.0 [facility] Comment on above: Performed By: #### C BC, MG, GFR, ADIFF, BMP, ANEU #### [address] [address] Glucose [Mass/Vol] 108 mg/dL Normal 70-110 [facility] Comment on above: Performed By: #### C BC, MG, GFR, ADIFF, BMP, ANEU #### [address] [address] Potassium [Moles/Vol] 3.8 mmol/L Normal 3.5-5.0 [facility] Comment on above: Performed By: #### C BC, MG, GFR, ADIFF, BMP, ANEU #### [address] [address] Sodium [Moles/Vol] 136 mmol/L Normal 136-145 [facility] Comment on above: Performed By: #### C BC, MG, GFR, ADIFF, BMP, ANEU #### [place] [address] Urea nitrogen [Mass/Vol] 14.0 mg/dL Normal 8.0-22.0 [facility] Comment on above: Performed By: #### C BC, MG, GFR, ADIFF, BMP, ANEU #### [place] [address] CBCon 11-25-2024 Erythrocyte distribution width (RBC) [Ratio] 15.3 % Normal 11.5-15.5 [facility] Comment on above: Order Comment: QNS Performed By: #### C BC, MG, GFR, ADIFF, BMP, ANEU #### [place] [address] Hematocrit (Bld) [Volume fraction] 44.6 % Normal 40.0-52.0 [facility] Comment on above: Order Comment: QNS Performed By: #### C BC, MG, GFR, ADIFF, BMP, ANEU #### [place] [address] Hgb 14.9 G/dL Normal 13.0-17.5 [facility] Comment on above: Order Comment: QNS Performed By: #### C BC, MG, GFR, ADIFF, BMP, ANEU #### [place] [address] MCH (RBC) [Entitic mass] 29.2 pg Normal 27.0-33.0 [facility] Comment on above: Order Comment: QNS Performed By: #### C BC, MG, GFR, ADIFF, BMP, ANEU #### [place] [address] MCHC 33.4 G/dL Normal 32.0-36.0 [facility] Comment on above: Order Comment: QNS Performed By: #### C BC, MG, GFR, ADIFF, BMP, ANEU #### [place] [address] MCV (RBC) [Entitic vol] 87.6 fL Normal 81.0-100.0 [facility] Comment on above: Order Comment: QNS Performed By: #### C BC, MG, GFR, ADIFF, BMP, ANEU #### [address] [address] Platelet 183 10 3/mcL Normal 150-450 [facility] Comment on above: Order Comment: QNS Performed By: #### C BC, MG, GFR, ADIFF, BMP, ANEU #### [place] [address] Platelet mean volume (Bld) [Entitic vol] 8.3 fL Normal 6.4-10.5 [facility] Comment on above: Order Comment: QNS Performed By: #### C BC, MG, GFR, ADIFF, BMP, ANEU #### [place] [address] RBC 5.08 10 6/mcL Normal 4.50-6.00 [facility] Comment on above: Order Comment: QNS Performed By: #### C BC, MG, GFR, ADIFF, BMP, ANEU #### [address] [address] WBC 8.9 10 3/mcL Normal 4.5-10.8 [facility] Comment on above: Order Comment: QNS Performed By: #### C BC, MG, GFR, ADIFF, BMP, ANEU #### [place] [address] LABORATORYOrdered By: SYSTEM SYSTEM on 11-25-2024 Basophils [...] above: Interpretive Data: T esting performed on [employer] analyzer using enzymatic creatinine methodology. Electrolyte Balance 12.0 mEq/L Normal 4.0 - 15 .0 mEq/L ADM SS Estimated Glomerular Filtration Rate 102 [...] 15.7 ratio Normal 10.0 - 22.0 ratio AH ADM SS MGon 11-25-2024 Magnesium [Mass/Vol] 2.1 mg/dL Normal 1.6-2.4 [facility] Comment on above: Performed By: #### C BC, MG, GFR, ADIFF, BMP, ANEU #### [place] [address] No Panel Informationon 11-25 GSAER Gram Positive Cocci in clusters [facility] Microscopic examination of blood, culture Culture has been received in lab and is no growth to date. Routine cultures are held for 5 days. [facility] Microscopic examination of blood, culture Staphylococcus coagulase negative Staphylococcus coagulase negative #2 Staphylococcus coagulase negative #3 Isolated from aerobe bottle only. 1 out of 2 sets positive Organism is a potential contaminant. Clinical Significance undetermined. Please contact Microbiology if further work-up is required. [facility] XR ANKLE MINIMUM 3 VIEWS LEF [...] 11/25/2024 7:46:46 PM Ordering Provider: SUZE MISHRA Normal [facility] XR ANKLE MINIMUM 3 VIEWS [...] By: Trace Fierro Electronically signed By Trace Feirro Dictated Date: 11/25/2024 7:35:44 PM Prelim Date: 11/25/2024 7:39:01 PM Sign Date: 11/25/2024 7:39:01 PM Ordering Provider: SUZE MISHRA [facility] XR TIBIA/FIBULA 2 VIEWS [facility] 11-25-2024 XR TIBIA/FIBULA 2 VIEWS RIGHT ORIGINAL [...] 11/25/2024 7:42:39 PM Ordering Provider: ORI TOMLIN [facility] .Auto Diffon 06-29-2025 Basophil, Absolute 0.0 10 3/mcL Normal 0.0-0.3 [facility] Comment on above: Performed By: #### A DIFF, ANEU, BMP, CBC, GFR #### [address] [address] Basophils/100 WBC (Bld) 0.2 % Normal 0.0-2.5 [facility] Comment on above: Performed By: #### A DIFF, ANEU, BMP, CBC, GFR #### [address] [address] Eosinophil, Absolute 0.0 10 3/mcL Normal 0.0-0.7 [facility] Comment on above: Performed By: #### A DIFF, ANEU, BMP, CBC, GFR #### [address] [address] Eosinophils/100 WBC (Bld) 0.2 % Normal 0.0-6.0 [facility] Comment on above: Performed By: #### A DIFF, ANEU, BMP, CBC, GFR #### [address] [address] Lymphocyte, Absolute 1.2 10 3/mcL Normal 0.9-4.3 [facility] Comment on above: Performed By: #### A DIFF, ANEU, BMP, CBC, GFR #### [address] [address] Lymphocytes/100 WBC (Bld) 9.9 % Low 20.0-40.0 [facility] Comment on above: Performed By: #### A DIFF, ANEU, BMP, CBC, GFR #### [address] [address] Monocyte, Absolute 1.6 10 3/mcL High 0.1-1.4 [facility] Comment on above: Performed By: #### A DIFF, ANEU, BMP, CBC, GFR #### [address] [address] Monocytes/100 WBC (Bld) 12.6 % Normal 2.0-13.0 [facility] Comment on above: Performed By: #### A DIFF, ANEU, BMP, CBC, GFR #### [address] [address] Neutrophils/100 WBC (Bld) 77.1 % High 50.0-75.0 [facility] Comment on above: Performed By: #### A DIFF, ANEU, BMP, CBC, GFR #### [address] [address] Basophil, Absolute 0.1 10 3/mcL Normal 0.0-0.3 [facility] Comment on above: Performed By: #### A ERICMDW, BMP, MG, GFR, ADIFF, DIMER, CBC, PBNP, TROPHS #### [address] [address] Basophils/100 WBC (Bld) 0.4 % Normal 0.0-2.[address] [facility] Comment on above: Performed By: #### A ERIC, W, BMP, MG, GFR, ADIFF, DIMER, CBC, PBNP, TROPHS #### [address] [address] Eosinophil, Absolute 0.0 10 3/mcL Normal 0.0-0.7 [facility] Comment on above: Performed By: #### A MD ERICW, BMP, MG, GFR, ADIFF, DIMER, CBC, PBNP, TROPHS #### [address] [address] Eosinophils/100 WBC (Bld) 0.1 % Normal 0.0-6.0 [facility] Comment on above: Performed By: #### A MD ERICW, BMP, MG, GFR, ADIFF, DIMER, CBC, PBNP, TROPHS #### [address] [address] Lymphocyte, Absolute 1.0 10 3/mcL Normal 0.9-4.3 [facility] Comment on above: Performed By: #### A MD ERICW, BMP, MG, GFR, ADIFF, DIMER, CBC, PBNP, TROPHS #### [address] [address] Lymphocytes/100 WBC (Bld) 5.8 % Low 20.0-40.0 [facility] Comment on above: Performed By: #### A ERIC, MDW, BMP, MG, GFR, ADIFF, DIMER, CBC, PBNP, TROPHS #### [address] [address] Monocyte, Absolute 1.9 10 3/mcL High 0.1-1.4 [facility] Comment on above: Performed By: #### A ERIC, MDW, BMP, MG, GFR, ADIFF, DIMER, CBC, PBNP, TROPHS #### [address] [address] Monocytes/100 WBC (Bld) 11.5 % Normal 2.0-13.[address] [facility] Comment on above: Performed By: #### A ERIC, MDW, BMP, MG, GFR, ADIFF, DIMER, CBC, PBNP, TROPHS #### [address] [address] Neutrophils/100 WBC (Bld) 82.2 % High 50.0-75.0 [facility] Comment on above: Performed By: #### A ERIC, MDW, BMP, MG, GFR, ADIFF, DIMER, CBC, PBNP, TROPHS #### [address] [id number] .GFRon 11-24-2024 Estimated Glomerular Filtration Rate 102 ml/min/1.73sqm Normal [facility] Comment on above: Result Comment: Stages of [...] A DIFF, ANEU, BMP, CBC, GFR #### [place] [id number] [address] [place] [address] [address] Estimated Glomerular Filtration Rate 93 ml/min/1.73sqm Normal [facility] Comment on above: Result Comment: Stages [...] GFR, ADIFF, DIMER, CBC, PBNP, TROPHS #### [address] [address] .MDWon 11-24-2024 Monocyte Distribution Width 19.29 Normal 0.00-20.00 [facility] Comment on above: Result Comment: For ED adult patients suspected of sepsis, MDW<=20.0 does not rule out sepsis or risk of sepsis Performed By: #### A ERIC, MDW, BMP, MG, GFR, ADIFF, DIMER, CBC, PBNP, TROPHS #### [address] [address] .NEUABSon 11-24-2024 Neutrophil, Absolute 9.7 10 3/mcL High 2.3-8.1 [facility] Comment on above: Performed By: #### A DIFF, ANEU, BMP, CBC, GFR #### [address] [address] Neutrophil, Absolute 13.6 10 3/mcL High 2.3-8.[address] [facility] Comment on above: Performed By: #### A ERIC, MDW, BMP, MG, GFR, ADIFF, DIMER, CBC, PBNP, TROPHS #### [address] [address] BMPon 11-24-2024 BUN/Creatinine Ratio 10.0 ratio Normal 10.0-22.0 [facility] Comment on above: Performed By: #### A DIFF, ANEU, BMP, CBC, GFR #### [address] [address] Calcium [Mass/Vol] 9.2 mg/dL Normal 8.7-10.4 [facility] Comment on above: Performed By: #### A DIFF, ANEU, BMP, CBC, GFR #### [address] [address] Chloride [Moles/Vol] 99 mmol/L Normal 98-110 [facility] Comment on above: Performed By: #### A DIFF, ANEU, BMP, CBC, GFR #### [address] [address] CO2 [Moles/Vol] 23 mmol/L Normal 22-32 [facility] Comment on above: Performed By: #### A DIFF, ANEU, BMP, CBC, GFR #### [address] [address] Creatinine [Mass/Vol] 0.90 mg/dL Normal 0.60-1.40 [facility] Comment on above: Result Comment: Test ing performed on [employer] analyzer using enzymatic creatinine methodology. Performed By: #### A DIFF, ANEU, BMP, CBC, GFR #### [address] [address] Electrolyte Balance 12.0 mEq/L Normal 4.0-15.0 [facility] Comment on above: Performed By: #### A DIFF, ANEU, BMP, CBC, GFR #### [address] [address] Glucose [Mass/Vol] 109 mg/dL Normal 70-110 [facility] Comment on above: Performed By: #### A DIFF, ANEU, BMP, CBC, GFR #### [address] [address] Potassium [Moles/Vol] 4.1 mmol/L Normal 3.5-5.0 [facility] Comment on above: Performed By: #### A DIFF, ANEU, BMP, CBC, GFR #### [address] [address] Sodium [Moles/Vol] 134 mmol/L Low 136-145 [facility] Comment on above: Performed By: #### A DIFF, ANEU, BMP, CBC, GFR #### [address] [address] Urea nitrogen [Mass/Vol] 9.0 mg/dL Normal 8.0-22.0 [facility] Comment on above: Performed By: #### A DIFF, ANEU, BMP, CBC, GFR #### [address] [address] BUN/Creatinine Ratio 11 ratio Normal 7-27 [facility] Comment on above: Performed By: #### A ELY REYES, BMP, MG, GFR, ADIFF, DIMER, CBC, PBNP, TROPHS #### [address] [address] Calcium [Mass/Vol] 8.7 mg/dL Normal 8.4-10.2 [facility] Comment on above: Performed By: #### A ELY REYES, BMP, MG, GFR, ADIFF, DIMER, CBC, PBNP, TROPHS #### [address] [address] Chloride [Moles/Vol] 99 mmol/L Normal 98-107 [facility] Comment on above: Performed By: #### A ELY REYES, BMP, MG, GFR, ADIFF, DIMER, CBC, PBNP, TROPHS #### [address] [address] CO2 [Moles/Vol] 28 mmol/L Normal 22-29 [facility] Comment on above: Performed By: #### A ELY REYES, BMP, MG, GFR, ADIFF, DIMER, CBC, PBNP, TROPHS #### [address] [address] Creatinine [Mass/Vol] 0.97 mg/dL Normal 0.67-1.17 [facility] Comment on above: Performed By: #### A ERICMDW, BMP, MG, GFR, ADIFF, DIMER, CBC, PBNP, TROPHS #### [address] [address] Electrolyte Balance 6.0 mEq/L Normal 4.0-15.0 [facility] Comment on above: Performed By: #### A ERICMDW, BMP, MG, GFR, ADIFF, DIMER, CBC, PBNP, TROPHS #### [address] [address] Glucose [Mass/Vol] 130 mg/dL High 70-105 [facility] Comment on above: Performed By: #### A ERICMDW, BMP, MG, GFR, ADIFF, DIMER, CBC, PBNP, TROPHS #### [address] [address] Potassium [Moles/Vol] 4.9 mmol/L Normal 3.5-5.1 [facility] Comment on above: Performed By: #### A MD ERICW, BMP, MG, GFR, ADIFF, DIMER, CBC, PBNP, TROPHS #### [address] [address] Sodium [Moles/Vol] 133 mmol/L Low 136-145 [facility] Comment on above: Performed By: #### A ERICMDW, BMP, MG, GFR, ADIFF, DIMER, CBC, PBNP, TROPHS #### [address] [address] Urea nitrogen [Mass/Vol] 11 mg/dL Normal 7-18 [facility] Comment on above: Performed By: #### A ERICMDW, BMP, MG, GFR, ADIFF, DIMER, CBC, PBNP, TROPHS #### [address] [address] CBCon 11-24-2024 Erythrocyte distribution width (RBC) [Ratio] 15.1 % Normal 11.5-15.5 [facility] Comment on above: Performed By: #### A DIFF, ANEU, BMP, CBC, GFR #### [address] [address] Hematocrit (Bld) [Volume fraction] 48.7 % Normal 40.0-52.0 [facility] Comment on above: Performed By: #### A DIFF, ANEU, BMP, CBC, GFR #### [address] [address] Hgb 15.7 G/dL Normal 13.0-17.5 [facility] Comment on above: Performed By: #### A DIFF, ANEU, BMP, CBC, GFR #### [address] [address] MCH (RBC) [Entitic mass] 28.3 pg Normal 27.0-33.0 [facility] Comment on above: Performed By: #### A DIFF, ANEU, BMP, CBC, GFR #### [place] [address] MCHC 32.3 G/dL Normal 32.0-36.0 [facility] Comment on above: Performed By: #### A DIFF, ANEU, BMP, CBC, GFR #### [place] [address] MCV (RBC) [Entitic vol] 87.7 fL Normal 81.0-100.0 [facility] Comment on above: Performed By: #### A DIFF, ANEU, BMP, CBC, GFR #### [place] [id number] Platelet 190 10 3/mcL Normal 150-450 [facility] Comment on above: Performed By: #### A DIFF, ANEU, BMP, CBC, GFR #### [place] [address] Platelet mean volume (Bld) [Entitic vol] 8.0 fL Normal 6.4-10.5 [facility] Comment on above: Performed By: #### A DIFF, ANEU, BMP, CBC, GFR #### [place] [id number] RBC 5.56 10 6/mcL Normal 4.50-6.00 [facility] Comment on above: Performed By: #### A DIFF, ANEU, BMP, CBC, GFR #### [address] [address] WBC 12.6 10 3/mcL High 4.5-10.8 [facility] Comment on above: Performed By: #### A DIFF, ANEU, BMP, CBC, GFR #### [place] [id number] [place] [address] Erythrocyte distribution width (RBC) [Ratio] 15.5 % Normal 11.5-15.5 [facility] Comment on above: Performed By: #### A ELY REYES, BMP, MG, GFR, ADIFF, DIMER, CBC, PBNP, TROPHS #### [address] [address] Hematocrit (Bld) [Volume fraction] 46.6 % Normal 40.0-52.0 [facility] Comment on above: Performed By: #### A ELY REYES, JULIÁN, MG, GFR, ADIFF, DIMER, CBC, PBNP, TROPHS #### [address] [address] Hgb 15.4 G/dL Normal 13.0-17.5 [facility] Comment on above: Performed By: #### A ELY REYES, JULIÁN, MG, GFR, ADIFF, DIMER, CBC, PBNP, TROPHS #### [address] [address] MCH (RBC) [Entitic mass] 28.8 pg Normal 27.0-33.0 [facility] Comment on above: Performed By: #### A ELY REYES, JULIÁN, MG, GFR, ADIFF, DIMER, CBC, PBNP, TROPHS #### [address] [address] MCHC 33.0 G/dL Normal 32.0-36.0 [facility] Comment on above: Performed By: #### A ELY REYES, JULIÁN, MG, GFR, ADIFF, DIMER, CBC, PBNP, TROPHS #### [address] [address] MCV (RBC) [Entitic vol] 87.4 fL Normal 81.0-100.0 [facility] Comment on above: Performed By: #### A ELY REYES, BMP, MG, GFR, ADIFF, DIMER, CBC, PBNP, TROPHS #### [address] [address] Platelet 240 10 3/mcL Normal 150-450 [facility] Comment on above: Performed By: #### A ELY REYES, BMP, MG, GFR, ADIFF, DIMER, CBC, PBNP, TROPHS #### [address] [address] Platelet mean volume (Bld) [Entitic vol] 7.8 fL Normal 6.4-10.5 [facility] Comment on above: Performed By: #### A ELY REYES, BMP, MG, GFR, ADIFF, DIMER, CBC, PBNP, TROPHS #### [address] [address] RBC 5.34 10 6/mcL Normal 4.50-6.00 [facility] Comment on above: Performed By: #### A ELY REYES, BMP, MG, GFR, ADIFF, DIMER, CBC, PBNP, TROPHS #### [address] [address] WBC 16.6 10 3/mcL High 4.5-10.8 [facility] Comment on above: Performed By: #### A ELY REYES, BMP, MG, GFR, ADIFF, DIMER, CBC, PBNP, TROPHS #### [address] [address] [address] ANGIOGRAPHY CHEST W/CONTR [place] 11-24-2024 CT [...] 11/24/2024 6:01:11 AM Ordering Provider: CIRILO PATEL [facility] CT HEAD OR BRAIN W/O CONTRAS [...] 5:55:14 AM Ordering Provider: CIRILO PATEL Normal [facility] DIMERon 11-24-2024 D-Dimer 564 ng/mL D-DU High 0-230 [facility] Comment on above: Result Comment: Spec [...] ADIFF, DIMER, CBC, PBNP, TROPHS #### [place] [address] [place], [place] [address] LABORATORYOrdered By: SYSTEM SYSTEM on 11-24-2024 Lactate [...] ng/L Male: 0-54 ng/L Testing performed on Cyan analyzer using direct chemiluminescent technology. TSH Qn [...] ng/L Male: 0-76 ng/L Testing performed on [employer] using a homogeneous sandwich chemiluminescent immunoassay based on Air[employer] technology. Urea nitrogen [Mass/Vol] 11 mg/dL Normal [...] 5:08 AM) Normal [facility] Comment on above: Interpretive Data: A ntimicrobial [...] Acid Lvl 1.0 mmol/L Normal 0.5-2.2 [facility] Comment on above: Performed By: #### A DIFF, ANEU, BMP, CBC, GFR #### [address] [address] Lactic Acid Lvl 0.4 mmol/L Normal 0.4-2.0 [facility] Comment on above: Order Comment: order ed secondary to Sepsis Alert Performed By: #### A ELY REYES, BMP, MG, GFR, ADIFF, DIMER, CBC, PBNP, TROPHS #### [address] [address] MGon 11-24-2024 Magnesium [Mass/Vol] 2.3 mg/dL Normal 1.6-2.4 [facility] Comment on above: Performed By: #### A DIFF, ANEU, BMP, CBC, GFR #### [address] [address] Magnesium [Mass/Vol] 1.6 mg/dL Low 1.8-2.4 [facility] Comment on above: Performed By: #### A ELY REYES, BMP, MG, GFR, ADIFF, DIMER, CBC, PBNP, TROPHS #### [address] [address] No Panel Informationon 11-24 Microscopic examination of blood, culture Culture has been received in lab and is no growth to date. Routine cultures are held for 5 days. [facility] PBNPon 11-24-2024 Natriuretic peptide B (Bld) [Mass/Vol] 4325 pg/mL High 0-900 [facility] Comment on above: Performed By: #### A DIFF, ANEU, BMP, CBC, GFR #### [address] [address] Natriuretic peptide B (Bld) [Mass/Vol] 5358 pg/mL High 0-125 [facility] Comment on above: Result Comment: NT-p roBNP results of less than 300 pg/mL effectively rules out acute congestive heart failure with 99% negative predictive value. Performed By: #### A ELY REYES, BMP, MG, GFR, ADIFF, DIMER, CBC, PBNP, TROPHS #### [address] [address] [facility] High Sensitivity Troponin I 8 ng/L Normal 0-54 [facility] Comment on above: Result Comment: High Sensitive Troponin I Reference Ranges: Female: 0-34 ng/L Male: 0-54 ng/L Testing performed on Bul[employer] IM analyzer using direct chemiluminescent technology. Performed By: #### A DIFF, ANEU, BMP, CBC, GFR #### [address] [address] High Sensitivity Troponin I 19 ng/L Normal 0-76 [facility] Comment on above: Result Comment: High Sensitive Troponin I Reference Ranges: Female: 0-51 ng/L Male: 0-76 ng/L Testing performed on [employer] using a homogeneous sandwich chemiluminescent immunoassay based on LOCI technology. Performed By: #### A ELY REYES, JULIÁN, MG, GFR, ADIFF, DIMER, CBC, PBNP, TROPHS #### [address] [address] TSHon 11-24-2024 TSH 0.855 mIU/mL Normal 0.550-4.780 [facility] Comment on above: Performed By: #### A DIFF, ANEU, BMP, CBC, GFR #### [address] [address] XR CHEST 1 VIEWon 11-24-2024 XR CHEST [...] 11/24/2024 2:03:25 PM Ordering Provider: KARLENE BARCENAS [facility] Anion gap in Serum or Plasma Ordered By: Dolly Marino on 11-06-2024 Anion gap [Moles/Vol] 9 mmol/L 10-10 [facility] BUN/creatinine ratioOrdered By: Dolly Marino on 11-06-2024 Urea nitrogen/Creatinine [Mass ratio] 14.9 mg/mg - [facility] Basic Metabolic Profile (BMP )on 11-06-2024 BUN/CRE 14.9 RATIO Normal 03-[address] [facility] Comment on above: Order Comment: 210 Performed By: #### L 500.4100, L501.9985 #### [facility] [address] [place], [address] Calcium [Mass/Vol] 9.2 mg/dL Normal 7.6-11.0 [facility] Comment on above: Order Comment: 210 Performed By: #### L 500.4100, L501.9985 #### [facility] [address] [place], [address] Chloride [Moles/Vol] 100 mmol/L Normal 98-108 [facility] Comment on above: Order Comment: 210 Performed By: #### L 500.4100, L501.9985 #### [facility] [address] [place], [address] CO2 [Moles/Vol] 27.9 mmol/L Normal 21.0-32.[address] [facility] Comment on above: Order Comment: 210 Performed By: #### L 500.4100, L501.9985 #### [facility] [address] [place], [address] Creatinine [Mass/Vol] 0.87 mg/dL Normal 0.70-1.20 [facility] Comment on above: Order Comment: 210 Performed By: #### L 500.4100, [id number] #### [facility] [address] [place], [address] GAP 9 Normal 5-[address] [facility] Comment on above: Order Comment: 210 Performed By: #### L 500.4100, [id number] #### [facility] [address] [place], [address] GFR/1.73 sq M.predicted among non-blacks MDRD (S/P/Bld) [Vol rate/Area] 103 mL/min/{1.73_m2} Normal >[address] [facility] Comment on above: Order Comment: 210 Result Comment: mL/m in/1.73m2 CKD-EPI Creatinine Equation (2020) Performed By: #### L 500.4100, L501.9985 #### [facility] [address] [place], [address] Glucose [Mass/Vol] 104 mg/dL High 70-99 [facility] Comment on above: Order Comment: 210 Performed By: #### L 500.4100, [id number] #### [facility] [address] [place], [address] Potassium [Moles/Vol] 4.4 mmol/L Normal 3.3-5.1 [facility] Comment on above: Order Comment: 210 Performed By: #### L 500.4100, L501.9985 #### [facility] [address] [place], [address] Sodium [Moles/Vol] 136 mmol/L Normal 133-145 [facility] Comment on above: Order Comment: 210 Performed By: #### L 500.4100, [id number] #### [facility] [address] [place], [place], [address] Urea nitrogen [Mass/Vol] 13 mg/dL Normal 4-[address] [facility] Comment on above: Order Comment: 210 Performed By: #### L 500.4100, [id number] #### [facility] [address] [place], [place], [address] Carbon dioxide, total [Moles /volume] in Central venous bloodOrdered By: Dolly Marino on 11-06-2024 CO2 [Moles/Vol] 27.9 mmol/L 21.0-32.[address] [facility] Chloride assayOrdered By: Darrin Marino on 11-06-2024 Chloride [Moles/Vol] 100 mmol/L 98-108 [facility] Glomerular filtration rate ( GFR) estimation/1.73 sq m using serum, plasma, or whole bOrdered By: Dolly Marino on 11-06-2024 GFR/1.73 sq M.predicted among non-blacks MDRD (S/P/Bld) [Vol rate/Area] 103 mL/min/{1.73_m2} >[address] [facility] Comment on above: mL/min/1.73m2 CKD-EP I Creatinine Equation (2020) Potassium measurement (mass/ volume)Ordered By: Dolly Marino on 11-06-2024 Potassium (Unsp spec) [Mass/Vol] 4.4 mmol/L 3.3-5.[address] [facility] Serum creatinine measurement (mass/volume)Ordered By: Dolly Marino on 11-06-2024 Creatinine [Mass/Vol] 0.87 mg/dL 0.70-1.20 [facility] Serum glucose measurement (m ass/volume)Ordered By: Dolly Marino on 11-06-2024 Glucose [Mass/Vol] 104 mg/dL High 70-99 [facility] Serum or plasma calcium scott urement (mass/volume)Ordered By: Dolly Marino on 11-06-2024 Calcium [Mass/Vol] 9.2 mg/dL 7.6-11.0 [facility] Serum or plasma urea nitroge n measurement (mass/volume)Ordered By: Dolly Marino on 11-06-2024 Urea nitrogen [Mass/Vol] 13 mg/dL 4-[address] [facility] Sodium levelOrdered By: Missael Marino on 11-06-2024 Sodium [Moles/Vol] 136 mmol/L 133-145 [facility] Absolute lymphocyte countOrd ered By: Dolly Marino on 11-04-2024 Lymphocytes Auto (Unsp spec) [#/Vol] 1.05 10*3/uL 0.83-4.[address] [facility] Absolute neutrophil countOrd ered By: Dolly Marino on 11-04-2024 Neutrophils (Bld) [#/Vol] 2.8 10*3/uL 2.0-7.[address] [facility] Anion gap in Serum or Plasma Ordered By: Dolly Marino on 11-04-2024 Anion gap [Moles/Vol] 10 mmol/L 5-15 [facility] Automated lymphocyte count a s percentage of total leukocytesOrdered By: Dolly Marino on 11-04-2024 Lymphocytes/100 WBC Auto (Unsp spec) 23.5 % 19-[address] [facility] BUN/creatinine ratioOrdered By: Dolly Marino on 11-04-2024 Urea nitrogen/Creatinine [Mass ratio] 12.7 mg/mg 10- [facility] Basic Metabolic Profile (BMP )on 11-04-2024 BUN/CRE 12.7 RATIO Normal - [facility] Comment on above: Order Comment: 210.1 Performed By: #### L 500.4100, L501.9985 #### [facility] [address] [place], [address] Calcium [Mass/Vol] 9.0 mg/dL Normal 7.6-11.0 [facility] Comment on above: Order Comment: 210.1 Performed By: #### L 500.4100, [id number] #### [facility] [address] [place], [address] Chloride [Moles/Vol] 101 mmol/L Normal 98-108 [facility] Comment on above: Order Comment: 210.1 Performed By: #### L 500.4100, [id number] #### [facility] [address] [place], [address] CO2 [Moles/Vol] 28.1 mmol/L Normal 21.0-32.[address] [facility] Comment on above: Order Comment: 210.1 Performed By: #### L 500.4100, [id number] #### [facility] [address] [place], [address] Creatinine [Mass/Vol] 0.80 mg/dL Normal 0.70-1.20 [facility] Comment on above: Order Comment: 210.1 Performed By: #### L 500.4100, [id number] #### [facility] [address] [place], [address] GAP 10 Normal 5-[address] [facility] Comment on above: Order Comment: 210.1 Performed By: #### L 500.4100, [id number] #### [facility] [address] [place], [address] GFR/1.73 sq M.predicted among non-blacks MDRD (S/P/Bld) [Vol rate/Area] 106 mL/min/{1.73_m2} Normal >[address] [facility] Comment on above: Order Comment: 210.1 Result Comment: mL/m in/1.73m2 CKD-EPI Creatinine Equation (2020) Performed By: #### L 500.4100, [id number] #### [facility] [address] [place], [address] Glucose [Mass/Vol] 96 mg/dL Normal 70-99 [facility] Comment on above: Order Comment: 210.1 Performed By: #### L 500.4100, [id number] #### [facility] [address] [place], [address] Potassium [Moles/Vol] 4.2 mmol/L Normal 3.3-5.1 [facility] Comment on above: Order Comment: 210.1 Result Comment: Hemo lysis present, Results??could be affected. ?? Performed By: #### L 500.4100, [id number] #### [facility] [address] [place], [address] Sodium [Moles/Vol] 139 mmol/L Normal 133-145 [facility] Comment on above: Order Comment: 210.1 Performed By: #### L 500.4100, [id number] #### [facility] [address] [place], [address] Urea nitrogen [Mass/Vol] 10 mg/dL Normal 4-[address] [facility] Comment on above: Order Comment: 210.1 Performed By: #### L 500.4100, [id number] #### [facility] [address] [place], [address] Basophil percentageOrdered B y: Dolly Marino on 11-04-2024 Basophils/100 WBC (Bld) 0.9 % 0-1 [facility] CBC W/Diff, Automatedon Absolute Lymph 1.05 X10 3/uL Normal 0.83-4.[address] [facility] Comment on above: Order Comment: 210.1 Performed By: #### L 500.4100, [id number] #### [facility] [address] [place], [address] Absolute Neut 2.8 X10 3/uL Normal 2.0-7.[address] [facility] Comment on above: Order Comment: 210.1 Performed By: #### L 500.4100, [id number] #### [facility] [address] [place], [address] Basophils/100 WBC (Bld) 0.9 % Normal 0-1 [facility] Comment on above: Order Comment: 210.1 Performed By: #### L 500.4100, [id number] #### [facility] [address] [place], [address] Eosinophils/100 WBC (Bld) 1.6 % Normal 0-[address] [facility] Comment on above: Order Comment: 210.1 Performed By: #### L 500.4100, [id number] #### [facility] [address] [place], [address] Erythrocyte distribution width (RBC) [Ratio] 15.8 % High 11.6-14.[address] [facility] Comment on above: Order Comment: 210.1 Performed By: #### L 500.4100, L501.9985 #### [facility] [address] [place], [address] Hematocrit (Bld) [Volume fraction] 41.8 % Normal 40-[address] [facility] Comment on above: Order Comment: 210.1 Performed By: #### L 500.4100, [id number] #### [facility] [address] [place], [address] Hemoglobin (Bld) [Mass/Vol] 13.1 g/dL Normal 13.0-16.[address] [facility] Comment on above: Order Comment: 210.1 Performed By: #### L 500.4100, [id number] #### [facility] [address] [place], [address] IG% 0.400 Normal 0.0-0.[address] [facility] Comment on above: Order Comment: 210.1 Result Comment: IG% - Immature Granulocytes (promyelocytes, myelocytes and metamyelocytes) > 1% indicates that a LEFT SHIFT is Present. Performed By: #### L 500.4100, L501.9985 #### [facility] [address] [place], [address] Lymphocytes/100 WBC (Bld) 23.5 % Normal 19-[address] [facility] Comment on above: Order Comment: 210.1 Performed By: #### L 500.4100, [id number] #### [facility] [address] [place], [address] MCH (RBC) [Entitic mass] 28.6 pg Normal 27.0-32.[address] [facility] Comment on above: Order Comment: 210.1 Performed By: #### L 500.4100, [id number] #### [facility] [address] [place], [address] MCHC (RBC) [Mass/Vol] 31.3 g/dL Low 32-36 [facility] Comment on above: Order Comment: 210.1 Performed By: #### L 500.4100, [id number] #### [facility] [address] [place], [address] MCV (RBC) [Entitic vol] 91.3 fL Normal 80-94 [facility] Comment on above: Order Comment: 210.1 Performed By: #### L 500.4100, [id number] #### [facility] [address] [place], [address] Monocytes/100 WBC (Bld) 11.4 % High 0-10 [facility] Comment on above: Order Comment: 210.1 Performed By: #### L 500.4100, [id number] #### [facility] [address] [place], [address] Neutrophils/100 WBC (Bld) 62.2 % Normal 47-[address] [facility] Comment on above: Order Comment: 210.1 Performed By: #### L 500.4100, [id number] #### [facility] [address] [place], [address] Nucleated RBC (Bld) [#/Vol] 0 10*3/uL Normal 0-[address] [facility] Comment on above: Order Comment: 210.1 Performed By: #### L 500.4100, [id number] #### [facility] [address] [place], [address] Platelet mean volume (Bld) [Entitic vol] 9.7 fL Normal 6.2-12.[address] [facility] Comment on above: Order Comment: 210.1 Performed By: #### L 500.4100, L501.9985 #### [facility] [address] [place], [address] Platelets (Bld) [#/Vol] 185 10*3/uL Normal 150-[address] [facility] Comment on above: Order Comment: 210.1 Performed By: #### L 500.4100, L501.9985 #### [facility] [address] [place], [address] RBC (Bld) [#/Vol] 4.58 10*6/uL Low 4.6-6.2 [facility] Comment on above: Order Comment: 210.1 Performed By: #### L 500.4100, L501.9985 #### [facility] [address] [place], [address] RDW SD 53.2 fl High 35.1-43.[address] [facility] Comment on above: Order Comment: 210.1 Performed By: #### L 500.4100, L501.9985 #### [facility] [address] [place], [address] WBC (Bld) [#/Vol] 4.5 10*3/uL Normal 4.4-11.0 [facility] Comment on above: Order Comment: 210.1 Performed By: #### L 500.4100, L501.9985 #### [facility] [address] [place], [address] Carbon dioxide, total [Moles /volume] in Central venous bloodOrdered By: Dolly Marino on 11-04-2024 CO2 [Moles/Vol] 28.1 mmol/L 21.0-32.[address] [facility] Chloride assayOrdered By: Darrin Marino on 11-04-2024 Chloride [Moles/Vol] 101 mmol/L 98-108 [facility] Eosinophil percentageOrdered By: Dolly Marino on 11-04-2024 Eosinophils/100 WBC (Bld) 1.6 % 0-[address] [facility] Erythrocyte distribution wid th ratioOrdered By: Dolly Marino on 11-04-2024 Erythrocyte distribution width (RBC) [Ratio] 15.8 % High 11.6-14.[address] [facility] Erythrocyte distribution wid th standard deviationOrdered By: Dolly Marino on 11-04-2024 Erythrocyte distribution width (RBC) [Ratio] 53.2 fl High 35.1-43.[address] [facility] Glomerular filtration rate ( GFR) estimation/1.73 sq m using serum, plasma, or whole bOrdered By: Dolly Marino on 11-04-2024 GFR/1.73 sq M.predicted among non-blacks MDRD (S/P/Bld) [Vol rate/Area] 106 mL/min/{1.73_m2} >[address] [facility] Comment on above: mL/min/1.73m2 CKD-EP I Creatinine Equation (2020) Hematocrit Auto (Bld) [Volum e fraction]Ordered By: Dolly Marino on 11-04-2024 Hematocrit (Bld) [Volume fraction] 41.8 % 40-[address] [facility] Hemoglobin measurementOrdere d By: Dolly Marino on 11-04-2024 Hemoglobin (Bld) [Mass/Vol] 13.1 g/dL 13.0-16.[address] [facility] Immature granulocytes/100 WB C Auto (Bld)Ordered By: Dolly Marino on 11-04-2024 Immature granulocytes/100 WBC (Bld) 0.400 % 0.0-0.[address] [facility] Comment on above: IG% - Immature Granu locytes (promyelocytes, myelocytes and metamyelocytes) > 1% indicates that a LEFT SHIFT is Present. MCV (mean corpuscular volume ) determinationOrdered By: Dolly Marino on 11-04-2024 MCV (RBC) [Entitic vol] 91.3 fL 80-94 [facility] Magnesiumon 11-04-2024 Magnesium [Mass/Vol] 2.2 mg/dL Normal 1.5-2.2 [facility] Comment on above: Order Comment: 210.1 Performed By: #### L 500.4100, L501.9985 #### [facility] [address] [place], [address] Magnesium measurement (mass/ volume)Ordered By: Dolly Marino on 11-04-2024 Magnesium (Unsp spec) [Mass/Vol] 2.2 mg/dL 1.5-2.[address] [facility] Mean corpuscular hemoglobin (MCH) determinationOrdered By: Dolly Marino on 11-04-2024 MCH (RBC) [Entitic mass] 28.6 pg 27.0-32.[address] [facility] Mean corpuscular hemoglobin concentration (MCHC) determinationOrdered By: Dolly Marino on 11-04-2024 MCHC (RBC) [Mass/Vol] 31.3 g/dL Low 32-36 [facility] Mean platelet volume determi nationOrdered By: Dolly Marino on 11-04-2024 Platelet mean volume (Bld) [Entitic vol] 9.7 fL 6.2-12.[address] [facility] Monocyte percentageOrdered B y: Dolly Marino on 11-04-2024 Monocytes/100 WBC (Bld) 11.4 % High 0-10 [facility] Neutrophil percentageOrdered By: Dolly Marino on 11-04-2024 Neutrophils/100 WBC (Bld) 62.2 % 47-[address] [facility] Nucleated red blood cell per centageOrdered By: Dolly Marino on 11-04-2024 Nucleated RBC/100 WBC (Bld) [Ratio] 0 % 0-[address] [facility] Platelet countOrdered By: Darrin Marino on 11-04-2024 Platelets (Bld) [#/Vol] 185 10*3/uL 150-[address] [facility] Potassium measurement (mass/ volume)Ordered By: Dolly Marino on 11-04-2024 Potassium (Unsp spec) [Mass/Vol] 4.2 mmol/L 3.3-5.[address] [facility] Comment on above: Hemolysis present, R esults could be affected. RBC Auto (Bld) [#/Vol]Ordere d By: Dolly Marino on 11-04-2024 RBC (Bld) [#/Vol] 4.58 10*6/uL Low 4.6-6.2 [facility] Serum creatinine measurement (mass/volume)Ordered By: Dolly Marino on 11-04-2024 Creatinine [Mass/Vol] 0.80 mg/dL 0.70-1.20 [facility] Serum glucose measurement (m ass/volume)Ordered By: Dolly Marino on 11-04-2024 Glucose [Mass/Vol] 96 mg/dL 70-99 [facility] Serum or plasma calcium scott urement (mass/volume)Ordered By: Dolly Marino on 11-04-2024 Calcium [Mass/Vol] 9.0 mg/dL 7.6-11.0 [facility] Serum or plasma urea nitroge n measurement (mass/volume)Ordered By: Dolly Marino on 11-04-2024 Urea nitrogen [Mass/Vol] 10 mg/dL 4-[address] [facility] Sodium levelOrdered By: Missael Marino on 11-04-2024 Sodium [Moles/Vol] 139 mmol/L 133-145 [facility] White blood cell (WBC) count Ordered By: Dolly Marino on 11-04-2024 WBC (Bld) [#/Vol] 4.5 10*3/uL 4.4-11.0 [facility] Calculated very low density lipoprotein (VLDL) cholesterol measurementOrdered By: Dolly Marino on 10-30-2024 Calculated very low density lipoprotein (VLDL) cholesterol measurement 26 mg/dL 5-[address] [facility] Hemoglobin A1con 10-30-2024 HbA1c (Bld) [Mass fraction] 5.8 % High <=5.[address] [facility] Comment on above: Result Comment: Norm al < 5.7 % Prediabetic 5.7 - 6.4 % Diabetic >or= 6.5 % Please note range changes. Performed By: #### L 500.4100, L501.9985 #### [facility] [address] [place], [address] Hemoglobin A1c percentageOrd ered By: Dolly Marino on 10-30-2024 HbA1c (Bld) [Mass fraction] 5.8 % High <5.[address] [facility] Comment on above: Normal < 5.7 % Predi abetic 5.7 - 6.4 % Diabetic >or= 6.5 % Please note range changes. LDL calc ser/plasOrdered By: Dolly Marino on 10-30-2024 Cholesterol in LDL [Mass/Vol] 34 mg/dL [facility] Comment on above: Egkveagnhr=167-693 m g/dL & Higher Bihx=852 mg/dL or greater Lipid Profileon 10-30-2024 CHOL:HDL 3.[address] [facility] Comment on above: Performed By: #### L 500.4100, L501.9985 #### [facility] [address] [place], [address] Cholesterol [Mass/Vol] 83 mg/dL Normal <=200 [facility] Comment on above: Result Comment: Chol esterol level, Desirable <200 mg/dL Borderline high cholesterol 200-239 mg/dL High cholesterol >=240 mg/dL Recommendations of the NCEP Adult Treatment Panel for the following risk-cutoff thresholds for the [place] population. Performed By: #### L 500.4100, L501.9985 #### [facility] [address] [place], [address] Cholesterol in HDL [Mass/Vol] 23 mg/dL Low [facility] Comment on above: Result Comment: Fern onal Cholesterol Education Program (NCEP) guidelines: <40 mg/dL: Low HDL-cholesterol (major risk factor for CHD) >= 60 mg/dL: High HDL-cholesterol (negative risk factor for CHD) HDL-cholesterol is affected by a number of factors, e.g. smoking, exercise, hormones, sex and age. Performed By: #### L 500.4100, L501.9985 #### [facility] [address] [place], [address] Cholesterol in LDL [Mass/Vol] 34 mg/dL Normal [facility] Comment on above: Result Comment: Bord mqxicd=105-950 mg/dL Higher Plca=892 mg/dL or greater Performed By: #### L 500.4100, L501.9985 #### [facility] [address] [place], [address] Cholesterol in VLDL [Mass/Vol] 26 mg/dL Normal 5-[address] [facility] Comment on above: Performed By: #### L 500.4100, L501.9985 #### [facility] [address] [place], [address] Triglyceride [Mass/Vol] 129 mg/dL Normal [facility] Comment on above: Result Comment: The drugs N-Acetylcysteine and Metamizole may falsely depress this assay. Normal range: <150 mg/dL Borderline High: 150-199 mg/dL High: 200-499 mg/dL Very High: >500 mg/dL Performed By: #### L 500.4100, L501.9985 #### [facility] [address] [place], [address] Screening total cholesterol/ high density lipoprotein (HDL) cholesterol ratioOrdered By: Dolly Marino on 10-30-2024 Cholesterol.total/Chio sterol in HDL [Mass ratio] 3.64 {ratio} [facility] Serum or plasma cholesterol in HDL measurement (mass/volume)Ordered By: Dolly Marino on 10-30-2024 Cholesterol in HDL [Mass/Vol] 23 mg/dL Low >[address] [facility] Comment on above: National Cholesterol Education Program (NCEP) guidelines:<40 mg/dL: Low HDL-cholesterol (major risk factor for CHD)>= 60 mg/dL: High HDL-cholesterol (negative risk factor for CHD)HDL-cholesterol is affected by a number of factors, e.g. smoking, exercise, hormones, sex and age. Serum or plasma cholesterol measurement (mass/volume)Ordered By: Dolly Marino on 10-30-2024 Cholesterol [Mass/Vol] 83 mg/dL <201 [facility] Comment on above: Cholesterol level, D esirable <200 mg/dLBorderline high cholesterol 200-239 mg/dLHigh cholesterol >=240 mg/dLRecommendations of the NCEP Adult Treatment Panel for the following risk-cutoff thresholds for the [place] population. Triglycerides measurementOrd ered By: Dolly Marino on 10-30-2024 Triglyceride [Mass/Vol] 129 mg/dL <199 [facility] Comment on above: The drugs N-Acetylcy steine and Metamizole may falsely depress this assay. Normal range: <150 mg/dLBorderline High: 150-199 mg/dLHigh: 200-499 mg/dLVery High: >500 mg/dL Absolute lymphocyte countOrd ered By: Dolly Marino on 10-28-2024 Lymphocytes Auto (Unsp spec) [#/Vol] 1.07 10*3/uL 0.83-4.[address] [facility] Absolute neutrophil countOrd ered By: Dolly Marino on 10-28-2024 Neutrophils (Bld) [#/Vol] 2.8 10*3/uL 2.0-7.[address] [facility] Anion gap in Serum or Plasma Ordered By: Dolly Marino on 10-28-2024 Anion gap [Moles/Vol] 10 mmol/L 5-15 [facility] Automated blood erythrocyte countOrdered By: Dolly Marino on 10-28-2024 RBC (Bld) [#/Vol] 4.52 10*6/uL Low 4.6-6.2 [facility] Comment on above: Order Comment: 210 Performed By: #### L 100.0100, L500.2500, L501.9520, L501.5200, L506.1001, L500.4100, L501.1400 #### [facility] [address] [place], [place], [id number] Automated blood hematocrit ( percentage)Ordered By: Dolly Marino on 10-28-2024 Hematocrit (Bld) [Volume fraction] 41.2 % 40-[address] [facility] Comment on above: Order Comment: 210 Performed By: #### L 100.0100, L500.2500, L501.9520, L501.5200, L506.1001, L500.4100, L501.1400 #### [facility] [address] [place], [place], [id number] Automated lymphocyte count a s percentage of total leukocytesOrdered By: Dolly Marino on 10-28-2024 Lymphocytes/100 WBC Auto (Unsp spec) 24.0 % 19-[address] [facility] BUN/creatinine ratioOrdered By: Dolly Marino on 10-28-2024 Urea nitrogen/Creatinine [Mass ratio] 13.8 mg/mg 10- [facility] Basic Metabolic Profile (BMP )on 10-28-2024 BUN/CRE 13.8 RATIO Normal -[address] [facility] Comment on above: Order Comment: 210 Performed By: #### L 100.0100, L500.2500, L501.9520, L501.5200, L506.1001, L500.4100, L501.1400 #### [facility] [address] [place], [place], [id number] GAP 10 Normal 5-[address] [facility] Comment on above: Order Comment: 210 Performed By: #### L 100.0100, L500.2500, L501.9520, L501.5200, L506.1001, L500.4100, L501.1400 #### [facility] [address] [place], [place], [id number] Potassium [Moles/Vol] 4.1 mmol/L Normal 3.3-5.1 [facility] Comment on above: Order Comment: 210 Performed By: #### L 100.0100, L500.2500, L501.9520, L501.5200, L506.1001, L500.4100, L501.1400 #### [facility] [address] [place], [place], [address] Basophil percentageOrdered B y: Dolly Marino on 10-28-2024 Basophils/100 WBC (Bld) 0.7 % 0-1 [facility] Comment on above: Order Comment: 210 Performed By: #### L 100.0100, L500.2500, L501.9520, L501.5200, L506.1001, L500.4100, L501.1400 #### [facility] [address] [place], [place], [id number] CBC W/Diff, Automatedon 06-0 -2024 Absolute Lymph 1.07 X10 3/uL Normal 0.83-4.[address] [facility] Comment on above: Order Comment: 210 Performed By: #### L 100.0100, L500.2500, L501.9520, L501.5200, L506.1001, L500.4100, L501.1400 #### [facility] [address] [place], [place], [id number] Absolute Neut 2.8 X10 3/uL Normal 2.0-7.[address] [facility] Comment on above: Order Comment: 210 Performed By: #### L 100.0100, L500.2500, L501.9520, L501.5200, L506.1001, L500.4100, L501.1400 #### [facility] [address] [place], [place], [address] IG% 0.400 Normal 0.0-0.[address] [facility] Comment on above: Order Comment: 210 Result Comment: IG% - Immature Granulocytes (promyelocytes, myelocytes and metamyelocytes) > 1% indicates that a LEFT SHIFT is Present. Performed By: #### L 100.0100, L500.2500, L501.9520, L501.5200, L506.1001, L500.4100, L501.1400 #### [facility] [address] [place], [place], [address] Lymphocytes/100 WBC (Bld) 24.0 % Normal 19-[address] [facility] Comment on above: Order Comment: 210 Performed By: #### L 100.0100, L500.2500, L501.9520, L501.5200, L506.1001, L500.4100, L501.1400 #### [facility] [address] [place], [place], [address] Nucleated RBC (Bld) [#/Vol] 0 10*3/uL Normal 0-[address] [facility] Comment on above: Order Comment: 210 Performed By: #### L 100.0100, L500.2500, L501.9520, L501.5200, L506.1001, L500.4100, L501.1400 #### [facility] [address] [place], [place], [address] RDW SD 53.1 fl High 35.1-43.[address] [facility] Comment on above: Order Comment: 210 Performed By: #### L 100.0100, L500.2500, L501.9520, L501.5200, L506.1001, L500.4100, L501.1400 #### [facility] [address] [place], [place], [address] Calculated very low density lipoprotein (VLDL) cholesterol measurementOrdered By: Dolly Marino on 10-28-2024 Calculated very low density lipoprotein (VLDL) cholesterol measurement 26 mg/dL 5-[address] [facility] Carbon dioxide, total [Moles /volume] in Central venous bloodOrdered By: Dolly Marino on 10-28-2024 CO2 [Moles/Vol] 27.1 mmol/L 21.0-32.[address] [facility] Comment on above: Order Comment: 210 Performed By: #### L 100.0100, L500.2500, L501.9520, L501.5200, L506.1001, L500.4100, L501.1400 #### [facility] [address] [place], [place], [address] Chloride assayOrdered By: Darrin Marino on 10-28-2024 Chloride [Moles/Vol] 98 mmol/L 98-108 [facility] Comment on above: Order Comment: 210 Performed By: #### L 100.0100, L500.2500, L501.9520, L501.5200, L506.1001, L500.4100, L501.1400 #### [facility] [address] [place], [place], [id number] Eosinophil percentageOrdered By: Dolly Marino on 10-28-2024 Eosinophils/100 WBC (Bld) 2.0 % 0-[address] [facility] Comment on above: Order Comment: 210 Performed By: #### L 100.0100, L500.2500, L501.9520, L501.5200, L506.1001, L500.4100, L501.1400 #### [facility] [address] [place], [place], [id number] Erythrocyte distribution wid th ratioOrdered By: Dolly Marino on 10-28-2024 Erythrocyte distribution width (RBC) [Ratio] 15.9 % High 11.6-14.[address] [facility] Comment on above: Order Comment: 210 Performed By: #### L 100.0100, L500.2500, L501.9520, L501.5200, L506.1001, L500.4100, L501.1400 #### [facility] [address] [place] [place], [address] Erythrocyte distribution wid th standard deviationOrdered By: Dolly Marino on 10-28-2024 Erythrocyte distribution width (RBC) [Ratio] 53.1 fl High 35.1-43.[address] [facility] Glomerular filtration rate ( GFR) estimation/1.73 sq m using serum, plasma, or whole bOrdered By: Dolly Marino on 10-28-2024 GFR/1.73 sq M.predicted among non-blacks MDRD (S/P/Bld) [Vol rate/Area] 108 mL/min/{1.73_m2} >[address] [facility] Comment on above: mL/min/1.73m2 CKD-EP I Creatinine Equation (2020) Order Comment: 210 Result Comment: mL/m in/1.73m2 CKD-EPI Creatinine Equation (2020) Performed By: #### L 100.0100, L500.2500, L501.9520, L501.5200, L506.1001, L500.4100, L501.1400 #### [facility] [address] [place], [place], [id number] Hemoglobin measurementOrdere d By: Dolly Marino on 10-28-2024 Hemoglobin (Bld) [Mass/Vol] 13.0 g/dL 13.0-16.[address] [facility] Comment on above: Order Comment: 210 Performed By: #### L 100.0100, L500.2500, L501.9520, L501.5200, L506.1001, L500.4100, L501.1400 #### [facility] [address] [place], [address] Immature granulocytes/100 WB C Auto (Bld)Ordered By: Dolly Marino on 10-28-2024 Immature granulocytes/100 WBC (Bld) 0.400 % 0.0-0.[address] [facility] Comment on above: IG% - Immature Granu locytes (promyelocytes, myelocytes and metamyelocytes) > 1% indicates that a LEFT SHIFT is Present. LDL calc ser/plasOrdered By: Dolly Marino on 10-28-2024 Cholesterol in LDL [Mass/Vol] 46 mg/dL [facility] Comment on above: Iwstrjcpbb=620-606 m g/dL & Higher Wzqx=539 mg/dL or greater Order Comment: 210 Result Comment: Bord lsfqez=849-177 mg/dL Higher Lryq=599 mg/dL or greater Performed By: #### L 100.0100, L500.2500, L501.9520, L501.5200, L506.1001, L500.4100, L501.1400 #### [facility] [address] [place], [address] Lipid Profileon 10-28-2024 CHOL:HDL 4.[address] [facility] Comment on above: Order Comment: 210 Performed By: #### L 100.0100, L500.2500, L501.9520, L501.5200, L506.1001, L500.4100, L501.1400 #### [facility] [address] [place], [address] Cholesterol in VLDL [Mass/Vol] 26 mg/dL Normal 5-[address] [facility] Comment on above: Order Comment: 210 Performed By: #### L 100.0100, L500.2500, L501.9520, L501.5200, L506.1001, L500.4100, L501.1400 #### [facility] [address] [place], [address] MCV (mean corpuscular volume ) determinationOrdered By: Dolly Marino on 10-28-2024 MCV (RBC) [Entitic vol] 91.2 fL 80-94 [facility] Comment on above: Order Comment: 210 Performed By: #### L 100.0100, L500.2500, L501.9520, L501.5200, L506.1001, L500.4100, L501.1400 #### [facility] [address] [place], [address] Magnesiumon 10-28-2024 Magnesium [Mass/Vol] 2.2 mg/dL Normal 1.5-2.2 [facility] Comment on above: Order Comment: 210 Performed By: #### L 500.4100, L501.9985 #### [facility] [address] [place], [address] Magnesium measurement (mass/ volume)Ordered By: Dolly Marino on 10-28-2024 Magnesium (Unsp spec) [Mass/Vol] 2.2 mg/dL 1.5-2.[address] [facility] Mean corpuscular hemoglobin (MCH) determinationOrdered By: Dolly Marino on 10-28-2024 MCH (RBC) [Entitic mass] 28.8 pg 27.0-32.[address] [facility] Comment on above: Order Comment: 210 Performed By: #### L 100.0100, L500.2500, L501.9520, L501.5200, L506.1001, L500.4100, L501.1400 #### [facility] [address] [place], [address] Mean corpuscular hemoglobin concentration (MCHC) determinationOrdered By: Dolly Marino on 10-28-2024 MCHC (RBC) [Mass/Vol] 31.6 g/dL Low 32-36 [facility] Comment on above: Order Comment: 210 Performed By: #### L 100.0100, L500.2500, L501.9520, L501.5200, L506.1001, L500.4100, L501.1400 #### [facility] [address] [place], [address] Mean platelet volume determi nationOrdered By: Dolly Marino on 10-28-2024 Platelet mean volume (Bld) [Entitic vol] 9.6 fL 6.2-12.[address] [facility] Comment on above: Order Comment: 210 Performed By: #### L 100.0100, L500.2500, L501.9520, L501.5200, L506.1001, L500.4100, L501.1400 #### [facility] [address] [place], [address] Monocyte percentageOrdered B y: Dolly Marino on 10-28-2024 Monocytes/100 WBC (Bld) 11.0 % High 0-10 [facility] Comment on above: Order Comment: 210 Performed By: #### L 100.0100, L500.2500, L501.9520, L501.5200, L506.1001, L500.4100, L501.1400 #### [facility] [address] [place], [place], [id number] Neutrophil percentageOrdered By: Dolly Marino on 10-28-2024 Neutrophils/100 WBC (Bld) 61.9 % 47-[address] [facility] Comment on above: Order Comment: 210 Performed By: #### L 100.0100, L500.2500, L501.9520, L501.5200, L506.1001, L500.4100, L501.1400 #### [facility] [address] [facility] [place], [address] Nucleated red blood cell per centageOrdered By: Dolly Marino on 10-28-2024 Nucleated RBC/100 WBC (Bld) [Ratio] 0 % 0-[address] [facility] Platelet countOrdered By: Darrin Marino on 10-28-2024 Platelets (Bld) [#/Vol] 154 10*3/uL 150-[address] [facility] Comment on above: Order Comment: 210 Performed By: #### L 100.0100, L500.2500, L501.9520, L501.5200, L506.1001, L500.4100, L501.1400 #### [facility] [address] [facility] [place], [place], [id number] Potassium measurement (mass/ volume)Ordered By: Dolly Marino on 10-28-2024 Potassium (Unsp spec) [Mass/Vol] 4.1 mmol/L 3.3-5.[address] [facility] Screening total cholesterol/ high density lipoprotein (HDL) cholesterol ratioOrdered By: Dolly Marino on 10-28-2024 Cholesterol.total/Chio sterol in HDL [Mass ratio] 4.07 {ratio} [facility] Serum creatinine measurement (mass/volume)Ordered By: Dolly Marino on 10-28-2024 Creatinine [Mass/Vol] 0.74 mg/dL 0.70-1.20 [facility] Comment on above: Order Comment: 210 Performed By: #### L 100.0100, L500.2500, L501.9520, L501.5200, L506.1001, L500.4100, L501.1400 #### [facility] [address] [place], [address] Serum glucose measurement (m ass/volume)Ordered By: Dolly Marino on 10-28-2024 Glucose [Mass/Vol] 108 mg/dL High 70-99 [facility] Comment on above: Order Comment: 210 Performed By: #### L 100.0100, L500.2500, L501.9520, L501.5200, L506.1001, L500.4100, L501.1400 #### [facility] [address] [place], [address] Serum or plasma calcium scott urement (mass/volume)Ordered By: Dolly Marino on 10-28-2024 Calcium [Mass/Vol] 8.9 mg/dL 7.6-11.0 [facility] Comment on above: Order Comment: 210 Performed By: #### L 100.0100, L500.2500, L501.9520, L501.5200, L506.1001, L500.4100, L501.1400 #### [facility] [address] [place], [address] Serum or plasma cholesterol in HDL measurement (mass/volume)Ordered By: Dolly Marino on 10-28-2024 Cholesterol in HDL [Mass/Vol] 23 mg/dL Low >[address] [facility] Comment on above: National Cholesterol Education [...] L500.2500, L501.9520, L501.5200, L506.1001, L500.4100, L501.1400 #### [facility] [address] [place], [place], [id number] Serum or plasma cholesterol measurement (mass/volume)Ordered By: Dolly Marino on 10-28-2024 Cholesterol [Mass/Vol] 95 mg/dL <201 [facility] Comment on above: Cholesterol level, D esirable <200 mg/dLBorderline high cholesterol 200-239 mg/dLHigh cholesterol >=240 mg/dLRecommendations of the NCEP Adult Treatment Panel for the following risk-cutoff thresholds for the [place] population. Order Comment: 210 Result Comment: Chol esterol level, Desirable <200 mg/dL Borderline high cholesterol 200-239 mg/dL High cholesterol >=240 mg/dL Recommendations of the NCEP Adult Treatment Panel for the following risk-cutoff thresholds for the [place] population. Performed By: #### L 100.0100, L500.2500, L501.9520, L501.5200, L506.1001, L500.4100, L501.1400 #### [facility] [address] [place], [place], [id number] Serum or plasma urea nitroge n measurement (mass/volume)Ordered By: Dolly Marino on 10-28-2024 Urea nitrogen [Mass/Vol] 10 mg/dL 4-[address] [facility] Comment on above: Order Comment: 210 Performed By: #### L 100.0100, L500.2500, L501.9520, L501.5200, L506.1001, L500.4100, L501.1400 #### [facility] [address] [place], [place], [address] Serum or plasma uric acid me asurement (mass/volume)Ordered By: Dolly Marino on 10-28-2024 Urate [Mass/Vol] 5.8 mg/dL 3.5-7.[address] [facility] Comment on above: The drugs N-Acetylcy steine and Metamizole may falsely depress this assay. Sodium levelOrdered By: Missael Marino on 10-28-2024 Sodium [Moles/Vol] 135 mmol/L 133-145 [facility] Comment on above: Order Comment: 210 Performed By: #### L 100.0100, L500.2500, L501.9520, L501.5200, L506.1001, L500.4100, L501.1400 #### [facility] [address] [place], [place], [id number] TSH DL <= 0.005 mIU/L QnOrde red By: Dolly Marino on 10-28-2024 TSH Qn 3.370 uIU/mL 0.300-4.[address] [facility] Thyroid Stim Hormone (TSH)on 10-28-2024 TSH 3.370 uIU/mL Normal 0.300-4.[address] [facility] Comment on above: Order Comment: 210 Performed By: #### L 500.4100, L501.9985 #### [facility] [address] [place], [place], [id number] Triglycerides measurementOrd ered By: Dolly Marino on 10-28-2024 Triglyceride [Mass/Vol] 129 mg/dL <199 [facility] Comment on above: The drugs N-Acetylcy [...] L500.2500, L501.9520, L501.5200, L506.1001, L500.4100, L501.1400 #### [facility] [address] [place], [address] Uric Acidon 10-28-2024 URIC 5.8 mg/dL Normal 3.5-7.[address] [facility] Comment on above: Order Comment: 210 Result Comment: The drugs N-Acetylcysteine and Metamizole may falsely depress this assay. Performed By: #### L 500.4100, L501.9985 #### [facility] [address] [place], [address] Vitamin D,25 Hydroxyon 10-28 Vitamin D 25-OH < 6.0 Low 30-[address] [facility] Comment on above: Order Comment: 210 Result Comment: Colleen min D Status Deficiency: <20 ng/mL (50nmol/L) Insufficiency: 20-30 ng/mL (50-75 nmol/L) Sufficiency: 30-100 ng/mL (75-250 nmol/L) Toxicity: >100 ng/mL (>250 nmol/L) Performed By: #### L 500.4100, L501.9985 #### [facility] [address] [place], [address] White blood cell (WBC) count Ordered By: Dolly Marino on 10-28-2024 WBC (Bld) [#/Vol] 4.5 10*3/uL 4.4-11.0 [facility] Comment on above: Order Comment: 210 Performed By: #### L 100.0100, L500.2500, L501.9520, L501.5200, L506.1001, L500.4100, L501.1400 #### [facility] [address] [place], [address] Anion gap in Serum or Plasma Ordered By: Dolly Marino on 10-24-2024 Anion gap [Moles/Vol] 9 mmol/L 5-15 [facility] BUN/creatinine ratioOrdered By: Dolly Marino on 10-24-2024 Urea nitrogen/Creatinine [Mass ratio] 14.6 mg/mg 10-[address] [facility] Bilirubin, totalOrdered By: Dollytheresa Marino on 10-24-2024 Bilirubin [Mass/Vol] 0.31 mg/dL 0.00-1.30 [facility] CBC-Complete Blood Cnt No Di ffon 10-24-2024 Erythrocyte distribution width (RBC) [Ratio] 15.6 % High 11.6-14.[address] [facility] Comment on above: Performed By: #### L 100.0500, L500.4050 #### [facility] [address] [place], [address] Hematocrit (Bld) [Volume fraction] 40.1 % Normal 40-[address] [facility] Comment on above: Performed By: #### L 100.0500, L500.4050 #### [facility] [address] [place], [address] Hemoglobin (Bld) [Mass/Vol] 12.7 g/dL Low 13.0-16.[address] [facility] Comment on above: Performed By: #### L 100.0500, L500.4050 #### [facility] [address] [place], [address] MCH (RBC) [Entitic mass] 28.7 pg Normal 27.0-32.[address] [facility] Comment on above: Performed By: #### L 100.0500, L500.4050 #### [facility] [address] [place], [address] MCHC (RBC) [Mass/Vol] 31.7 g/dL Low 32-36 [facility] Comment on above: Performed By: #### L 100.0500, L500.4050 #### [facility] [address] [place], [address] MCV (RBC) [Entitic vol] 90.7 fL Normal 80-94 [facility] Comment on above: Performed By: #### L 100.0500, L500.4050 #### [facility] [address] [place], [address] Platelet mean volume (Bld) [Entitic vol] 9.3 fL Normal 6.2-12.[address] [facility] Comment on above: Performed By: #### L 100.0500, L500.4050 #### [facility] [address] [place], [address] Platelets (Bld) [#/Vol] 155 10*3/uL Normal 150-[address] [facility] Comment on above: Performed By: #### L 100.0500, L500.4050 #### [facility] [address] [place], [address] RBC (Bld) [#/Vol] 4.42 10*6/uL Low 4.6-6.2 [facility] Comment on above: Performed By: #### L 100.0500, L500.4050 #### [facility] [address] [place], [address] RDW SD 51.8 fl High 35.1-43.[address] [facility] Comment on above: Performed By: #### L 100.0500, L500.4050 #### [facility] [address] [place], [address] WBC (Bld) [#/Vol] 4.6 10*3/uL Normal 4.4-11.0 [facility] Comment on above: Performed By: #### L 100.0500, L500.4050 #### [facility] [address] [place], [address] Carbon dioxide, total [Moles /volume] in Central venous bloodOrdered By: Dolly Marino on 10-24-2024 CO2 [Moles/Vol] 29.2 mmol/L 21.0-32.[address] [facility] Chloride assayOrdered By: Darrin Marino on 10-24-2024 Chloride [Moles/Vol] 99 mmol/L 98-108 [facility] Comprehensive Metabolic Prof ilon 10-24-2024 Albumin [Mass/Vol] 3.4 g/dL Low 3.5-5.0 [facility] Comment on above: Performed By: #### L 100.0500, L500.4050 #### [facility] [address] [place], [address] Albumin/Globulin [Mass ratio] 1.0 {ratio} Normal 0.9-2.[address] [facility] Comment on above: Performed By: #### L 100.0500, L500.4050 #### [facility] [address] [place], [address] ALK PHOS 76 U/L Normal 40-[address] [facility] Comment on above: Performed By: #### L 100.0500, L500.4050 #### [facility] [address] [place], [address] ALT [Catalytic activity/Vol] 6 U/L Normal <=[address] [facility] Comment on above: Performed By: #### L 100.0500, L500.4050 #### [facility] [address] [place], [address] AST [Catalytic activity/Vol] 18 U/L Normal <=[address] [facility] Comment on above: Performed By: #### L 100.0500, L500.4050 #### [facility] [address] [place], [address] Bilirubin [Mass/Vol] 0.31 mg/dL Normal 0.00-1.30 [facility] Comment on above: Performed By: #### L 100.0500, L500.4050 #### [facility] [address] [place], [address] BUN/CRE 14.6 RATIO Normal 10-[address] [facility] Comment on above: Performed By: #### L 100.0500, L500.4050 #### [facility] [address] [place], [address] Calcium [Mass/Vol] 9.0 mg/dL Normal 7.6-11.0 [facility] Comment on above: Performed By: #### L 100.0500, L500.4050 #### [facility] [address] [place], [address] Chloride [Moles/Vol] 99 mmol/L Normal 98-108 [facility] Comment on above: Performed By: #### L 100.0500, L500.4050 #### [facility] [address] [place], [address] CO2 [Moles/Vol] 29.2 mmol/L Normal 21.0-32.[address] [facility] Comment on above: Performed By: #### L 100.0500, L500.4050 #### [facility] [address] [place], [address] Creatinine [Mass/Vol] 0.65 mg/dL Low 0.70-1.20 [facility] Comment on above: Performed By: #### L 100.0500, L500.4050 #### [facility] [address] [place], [address] GAP 9 Normal 5-[address] [facility] Comment on above: Performed By: #### L 100.0500, L500.4050 #### [facility] [address] [place], [address] GFR/1.73 sq M.predicted among non-blacks MDRD (S/P/Bld) [Vol rate/Area] 113 mL/min/{1.73_m2} Normal >[address] [facility] Comment on above: Result Comment: mL/m in/1.73m2 CKD-EPI Creatinine Equation (2020) Performed By: #### L 100.0500, L500.4050 #### [facility] [address] [place], [address] Globulin (S) [Mass/Vol] 3.2 g/dL Normal 2.2-4.2 [facility] Comment on above: Performed By: #### L 100.0500, L500.4050 #### [facility] [address] [place], [address] Glucose [Mass/Vol] 113 mg/dL High 70-99 [facility] Comment on above: Performed By: #### L 100.0500, L500.4050 #### [facility] [address] [place], [address] Potassium [Moles/Vol] 3.8 mmol/L Normal 3.3-5.1 [facility] Comment on above: Performed By: #### L 100.0500, L500.4050 #### [facility] [address] [place], [address] Sodium [Moles/Vol] 137 mmol/L Normal 133-145 [facility] Comment on above: Performed By: #### L 100.0500, L500.4050 #### [facility] [address] [place], [address] T PROT 6.6 g/dL Normal 5.9-8.[address] [facility] Comment on above: Performed By: #### L 100.0500, L500.4050 #### [facility] [address] [place], [address] Urea nitrogen [Mass/Vol] 10 mg/dL Normal 4-[address] [facility] Comment on above: Performed By: #### L 100.0500, L500.4050 #### [facility] [address] [place], [address] Erythrocyte distribution wid th ratioOrdered By: Dolly Marino on 10-24-2024 Erythrocyte distribution width (RBC) [Ratio] 15.6 % High 11.6-14.[address] [facility] Erythrocyte distribution wid th standard deviationOrdered By: Dolly Marino on 10-24-2024 Erythrocyte distribution width (RBC) [Ratio] 51.8 fl High 35.1-43.[address] [facility] Glomerular filtration rate ( GFR) estimation/1.73 sq m using serum, plasma, or whole bOrdered By: Dolly Marino on 10-24-2024 GFR/1.73 sq M.predicted among non-blacks MDRD (S/P/Bld) [Vol rate/Area] 113 mL/min/{1.73_m2} >[address] [facility] Comment on above: mL/min/1.73m2 CKD-EP I Creatinine Equation (2020) Hematocrit Auto (Bld) [Volum e fraction]Ordered By: Dolly Marino on 10-24-2024 Hematocrit (Bld) [Volume fraction] 40.1 % 40-[address] [facility] Hemoglobin measurementOrdere d By: Dolly Marino on 10-24-2024 Hemoglobin (Bld) [Mass/Vol] 12.7 g/dL Low 13.0-16.[address] [facility] - Chemistry and C hemistry - challengeOrdered By: Dolly Marino on 10-24-2024 AST [Catalytic activity/Vol] 18 U/L <[address] [facility] MCV (mean corpuscular volume ) determinationOrdered By: Dolly Marino on 10-24-2024 MCV (RBC) [Entitic vol] 90.7 fL 80-94 [facility] Mean corpuscular hemoglobin (MCH) determinationOrdered By: Dolly Marino on 10-24-2024 MCH (RBC) [Entitic mass] 28.7 pg 27.0-32.[address] [facility] Mean corpuscular hemoglobin concentration (MCHC) determinationOrdered By: Dolly Marino on 10-24-2024 MCHC (RBC) [Mass/Vol] 31.7 g/dL Low 32-36 [facility] Mean platelet volume determi nationOrdered By: Dolly Marino on 10-24-2024 Platelet mean volume (Bld) [Entitic vol] 9.3 fL 6.2-12.[address] [facility] Platelet countOrdered By: Darrin Marino on 10-24-2024 Platelets (Bld) [#/Vol] 155 10*3/uL 150-[address] [facility] Potassium measurement (mass/ volume)Ordered By: Dolly Marino on 10-24-2024 Potassium (Unsp spec) [Mass/Vol] 3.8 mmol/L 3.3-5.[address] [facility] RBC Auto (Bld) [#/Vol]Ordere d By: Dolly Marino on 10-24-2024 RBC (Bld) [#/Vol] 4.42 10*6/uL Low 4.6-6.2 [facility] Serum creatinine measurement (mass/volume)Ordered By: Dolly Marino on 10-24-2024 Creatinine [Mass/Vol] 0.65 mg/dL Low 0.70-1.20 [facility] Serum globulin measurementOr dered By: Dolly Marino on 10-24-2024 Globulin (S) [Mass/Vol] 3.2 g/dL 2.2-4.2 [facility] Serum glucose measurement (m ass/volume)Ordered By: Dolly Marino on 10-24-2024 Glucose [Mass/Vol] 113 mg/dL High 70-99 [facility] Serum or plasma alanine linda otransferase (ALT) measurementOrdered By: Dolly Marino on 10-24-2024 ALT [Catalytic activity/Vol] 6 U/L <[address] [facility] Serum or plasma albumin scott urement (mass/volume)Ordered By: Dolly Marino on 10-24-2024 Albumin [Mass/Vol] 3.4 g/dL Low 3.5-5.0 [facility] Serum or plasma albumin/glob ulin mass ratioOrdered By: Dolly Marino on 10-24-2024 Albumin/Globulin [Mass ratio] 1.0 {ratio} 0.9-2.[address] [facility] Serum or plasma alkaline kamaljit sphatase measurementOrdered By: Dolly Marino on 10-24-2024 ALP [Catalytic activity/Vol] 76 U/L 40-[address] [facility] Serum or plasma calcium scott urement (mass/volume)Ordered By: Dolly Marino on 10-24-2024 Calcium [Mass/Vol] 9.0 mg/dL 7.6-11.0 [facility] Serum or plasma urea nitroge n measurement (mass/volume)Ordered By: Dolly Marino on 10-24-2024 Urea nitrogen [Mass/Vol] 10 mg/dL 4-[address] [facility] Sodium levelOrdered By: Missael Marino on 10-24-2024 Sodium [Moles/Vol] 137 mmol/L 133-145 [facility] Total proteinOrdered By: Sahara Marino on 10-24-2024 Protein [Mass/Vol] 6.6 g/dL 5.9-8.4 [facility] White blood cell (WBC) count Ordered By: Dolly Marino on 10-24-2024 WBC (Bld) [#/Vol] 4.6 10*3/uL 4.4-11.0 [facility] LABORATORYOrdered By: Samanta Morin on 10-23-2024 Blood Glucose Testing Reason Routine (10/23/24 8:27 PM) [facility] Glucose [Mass/Vol] 168 mg/dL High 70 - 110 mg/dL [facility] LABORATORYOrdered By: Sarah Carrillo on 10-23-2024 Blood Glucose Testing Reason Routine (10/23/24 5:31 PM) [facility] Glucose [Mass/Vol] 146 mg/dL High 70 - 110 mg/dL [facility] LABORATORYOrdered By: Gianna Mendez on 10-23-2024 Blood Glucose Testing Reason Routine (10/23/24 12:15 PM) [facility] Glucose [Mass/Vol] 154 mg/dL High 70 - 110 mg/dL [facility] Comment on above: Result Comment: shira fiekta Staples RN .Auto Diffon 10-20-2024 Basophil, Absolute 0.0 10 3/mcL Normal 0.0-0.3 [facility] Comment on above: Performed By: #### A DIFF, ANEU, BMP, CBC, GFR #### [address] [address] Basophils/100 WBC (Bld) 0.6 % Normal 0.0-2.5 [facility] Comment on above: Performed By: #### A DIFF, ANEU, BMP, CBC, GFR #### [address] [address] Eosinophil, Absolute 0.1 10 3/mcL Normal 0.0-0.7 [facility] Comment on above: Performed By: #### A DIFF, ANEU, BMP, CBC, GFR #### [address] [address] Eosinophils/100 WBC (Bld) 1.5 % Normal 0.0-6.0 [facility] Comment on above: Performed By: #### A DIFF, ANEU, BMP, CBC, GFR #### [address] [address] Lymphocyte, Absolute 1.0 10 3/mcL Normal 0.9-4.3 [facility] Comment on above: Performed By: #### A DIFF, ANEU, BMP, CBC, GFR #### [address] [address] Lymphocytes/100 WBC (Bld) 21.2 % Normal 20.0-40.0 [facility] Comment on above: Performed By: #### A DIFF, ANEU, BMP, CBC, GFR #### [address] [address] Monocyte, Absolute 0.6 10 3/mcL Normal 0.1-1.4 [facility] Comment on above: Performed By: #### A DIFF, ANEU, BMP, CBC, GFR #### [address] [address] Monocytes/100 WBC (Bld) 11.6 % Normal 2.0-13.0 [facility] Comment on above: Performed By: #### A DIFF, ANEU, BMP, CBC, GFR #### [address] [address] Neutrophils/100 WBC (Bld) 65.1 % Normal 50.0-75.0 [facility] Comment on above: Performed By: #### A DIFF, ANEU, BMP, CBC, GFR #### [address] [address] .GFRon 10-20-2024 Estimated Glomerular Filtration Rate 108 ml/min/1.73sqm Normal [facility] Comment on [...] A DIFF, ANEU, BMP, CBC, GFR #### [address] [address] .NEUABSon 10-20-2024 Neutrophil, Absolute 3.2 10 3/mcL Normal 2.3-8.1 [facility] Comment on above: Performed By: #### A DIFF, ANEU, BMP, CBC, GFR #### [address] [address] BMPon 10-20-2024 BUN/Creatinine Ratio 10.8 ratio Normal 10.0-22.0 [facility] Comment on above: Performed By: #### A DIFF, ANEU, BMP, CBC, GFR #### [address] [address] Calcium [Mass/Vol] 8.7 mg/dL Normal 8.7-10.4 [facility] Comment on above: Performed By: #### A DIFF, ANEU, BMP, CBC, GFR #### [address] [address] Chloride [Moles/Vol] 97 mmol/L Low 98-110 [facility] Comment on above: Performed By: #### A DIFF, ANEU, BMP, CBC, GFR #### [address] [address] CO2 [Moles/Vol] 37 mmol/L High 22-32 [facility] Comment on above: Performed By: #### A DIFF, ANEU, BMP, CBC, GFR #### [address] [address] Creatinine [Mass/Vol] 0.74 mg/dL Normal 0.60-1.40 [facility] Comment on above: Result Comment: Test ing performed on [employer] analyzer using enzymatic creatinine methodology. Performed By: #### A DIFF, ANEU, BMP, CBC, GFR #### [address] [address] Electrolyte Balance 4.0 mEq/L Normal 4.0-15.0 [facility] Comment on above: Performed By: #### A DIFF, ANEU, BMP, CBC, GFR #### [address] [address] Glucose [Mass/Vol] 116 mg/dL High 70-110 [facility] Comment on above: Performed By: #### A DIFF, ANEU, BMP, CBC, GFR #### [address] [address] Potassium [Moles/Vol] 3.5 mmol/L Normal 3.5-5.0 [facility] Comment on above: Performed By: #### A DIFF, ANEU, BMP, CBC, GFR #### [address] [address] Sodium [Moles/Vol] 138 mmol/L Normal 136-145 [facility] Comment on above: Performed By: #### A DIFF, ANEU, BMP, CBC, GFR #### [place] [address] Urea nitrogen [Mass/Vol] 8.0 mg/dL Normal 8.0-22.0 [facility] Comment on above: Performed By: #### A DIFF, ANEU, BMP, CBC, GFR #### [place] [address] CBCon 10-20-2024 Erythrocyte distribution width (RBC) [Ratio] 16.8 % High 11.5-15.5 [facility] Comment on above: Performed By: #### A DIFF, ANEU, BMP, CBC, GFR #### [place] [address] Hematocrit (Bld) [Volume fraction] 41.3 % Normal 40.0-52.0 [facility] Comment on above: Performed By: #### A DIFF, ANEU, BMP, CBC, GFR #### [place] [address] Hgb 13.4 G/dL Normal 13.0-17.5 [facility] Comment on above: Performed By: #### A DIFF, ANEU, BMP, CBC, GFR #### [place] [address] MCH (RBC) [Entitic mass] 28.7 pg Normal 27.0-33.0 [facility] Comment on above: Performed By: #### A DIFF, ANEU, BMP, CBC, GFR #### [place] [address] MCHC 32.4 G/dL Normal 32.0-36.0 [facility] Comment on above: Performed By: #### A DIFF, ANEU, BMP, CBC, GFR #### [place] [address] MCV (RBC) [Entitic vol] 88.5 fL Normal 81.0-100.0 [facility] Comment on above: Performed By: #### A DIFF, ANEU, BMP, CBC, GFR #### [place] [address] Platelet 175 10 3/mcL Normal 150-450 [facility] Comment on above: Performed By: #### A DIFF, ANEU, BMP, CBC, GFR #### [place] [address] Platelet mean volume (Bld) [Entitic vol] 7.3 fL Normal 6.4-10.5 [facility] Comment on above: Performed By: #### A DIFF, ANEU, BMP, CBC, GFR #### [place] [address] RBC 4.67 10 6/mcL Normal 4.50-6.00 [facility] Comment on above: Performed By: #### A DIFF, ANEU, BMP, CBC, GFR #### [place] [address] WBC 4.8 10 3/mcL Normal 4.5-10.8 [facility] Comment on above: Performed By: #### A DIFF, ANEU, BMP, CBC, GFR #### [place] [address] LABORATORYOrdered By: SYSTEM SYSTEM on 10-20-2024 Basophils [...] above: Interpretive Data: T esting performed on [employer] analyzer using enzymatic creatinine methodology. Electrolyte Balance [...] A DIFF, ANEU, BMP, CBC, GFR #### [address] [address] Basophils/100 WBC (Bld) 0.7 % Normal 0.0-2.5 [facility] Comment on above: Performed By: #### A DIFF, ANEU, BMP, CBC, GFR #### [address] [address] Eosinophil, Absolute 0.1 10 3/mcL Normal 0.0-0.7 [facility] Comment on above: Performed By: #### A DIFF, ANEU, BMP, CBC, GFR #### [address] [address] Eosinophils/100 WBC (Bld) 1.9 % Normal 0.0-6.0 [facility] Comment on above: Performed By: #### A DIFF, ANEU, BMP, CBC, GFR #### [address] [address] Lymphocyte, Absolute 1.0 10 3/mcL Normal 0.9-4.3 [facility] Comment on above: Performed By: #### A DIFF, ANEU, BMP, CBC, GFR #### [address] [address] Lymphocytes/100 WBC (Bld) 18.3 % Low 20.0-40.0 [facility] Comment on above: Performed By: #### A DIFF, ANEU, BMP, CBC, GFR #### [address] [address] Monocyte, Absolute 0.5 10 3/mcL Normal 0.1-1.4 [facility] Comment on above: Performed By: #### A DIFF, ANEU, BMP, CBC, GFR #### [address] [address] Monocytes/100 WBC (Bld) 9.1 % Normal 2.0-13.0 [facility] Comment on above: Performed By: #### A DIFF, ANEU, BMP, CBC, GFR #### [address] [address] Neutrophils/100 WBC (Bld) 70.0 % Normal 50.0-75.0 [facility] Comment on above: Performed By: #### A DIFF, ANEU, BMP, CBC, GFR #### [address] [address] .GFRon 10-19-2024 Estimated Glomerular Filtration Rate 109 ml/min/1.73sqm Normal [facility] Comment on [...] A DIFF, ANEU, BMP, CBC, GFR #### [address] [address] .NEUABSon 10-19-2024 Neutrophil, Absolute 3.8 10 3/mcL Normal 2.3-8.1 [facility] Comment on above: Performed By: #### A DIFF, ANEU, BMP, CBC, GFR #### [place] [id number] [facility] BUN/Creatinine Ratio 11.1 ratio Normal 10.0-22.0 [facility] Comment on above: Performed By: #### A DIFF, ANEU, BMP, CBC, GFR #### [place] [address] Calcium [Mass/Vol] 8.7 mg/dL Normal 8.7-10.4 [facility] Comment on above: Performed By: #### A DIFF, ANEU, BMP, CBC, GFR #### [place] [address] Chloride [Moles/Vol] 100 mmol/L Normal 98-110 [facility] Comment on above: Performed By: #### A DIFF, ANEU, BMP, CBC, GFR #### [place] [address] CO2 [Moles/Vol] 33 mmol/L High 22-32 [facility] Comment on above: Performed By: #### A DIFF, ANEU, BMP, CBC, GFR #### [place] [address] Creatinine [Mass/Vol] 0.72 mg/dL Normal 0.60-1.40 [facility] Comment on above: Result Comment: Test ing performed on EcoSc[employer] analyzer using enzymatic creatinine methodology. Performed By: #### A DIFF, ANEU, BMP, CBC, GFR #### [place] [address] Electrolyte Balance 4.0 mEq/L Normal 4.0-15.0 [facility] Comment on above: Performed By: #### A DIFF, ANEU, BMP, CBC, GFR #### [address] [address] Glucose [Mass/Vol] 181 mg/dL High 70-110 [facility] Comment on above: Performed By: #### A DIFF, ANEU, BMP, CBC, GFR #### [place] [id number] Potassium [Moles/Vol] 3.5 mmol/L Normal 3.5-5.0 [facility] Comment on above: Performed By: #### A DIFF, ANEU, BMP, CBC, GFR #### [place] [id number] Sodium [Moles/Vol] 137 mmol/L Normal 136-145 [facility] Comment on above: Performed By: #### A DIFF, ANEU, BMP, CBC, GFR #### [place] [address] Urea nitrogen [Mass/Vol] 8.0 mg/dL Normal 8.0-22.0 [facility] Comment on above: Performed By: #### A DIFF, ANEU, BMP, CBC, GFR #### [address] [address] CBCon 10-19-2024 Erythrocyte distribution width (RBC) [Ratio] 17.3 % High 11.5-15.5 [facility] Comment on above: Performed By: #### A DIFF, ANEU, BMP, CBC, GFR #### [place] [id number] Hematocrit (Bld) [Volume fraction] 40.5 % Normal 40.0-52.0 [facility] Comment on above: Performed By: #### A DIFF, ANEU, BMP, CBC, GFR #### [address] [address] Hgb 13.0 G/dL Normal 13.0-17.5 [facility] Comment on above: Performed By: #### A DIFF, ANEU, BMP, CBC, GFR #### [address] [address] MCH (RBC) [Entitic mass] 28.6 pg Normal 27.0-33.0 [facility] Comment on above: Performed By: #### A DIFF, ANEU, BMP, CBC, GFR #### [address] [address] MCHC 32.1 G/dL Normal 32.0-36.0 [facility] Comment on above: Performed By: #### A DIFF, ANEU, BMP, CBC, GFR #### [address] [address] MCV (RBC) [Entitic vol] 89.2 fL Normal 81.0-100.0 [facility] Comment on above: Performed By: #### A DIFF, ANEU, BMP, CBC, GFR #### [place] [address] Platelet 171 10 3/mcL Normal 150-450 [facility] Comment on above: Performed By: #### A DIFF, ANEU, BMP, CBC, GFR #### [place] [address] Platelet mean volume (Bld) [Entitic vol] 7.6 fL Normal 6.4-10.5 [facility] Comment on above: Performed By: #### A DIFF, ANEU, BMP, CBC, GFR #### [place] [address] RBC 4.54 10 6/mcL Normal 4.50-6.00 [facility] Comment on above: Performed By: #### A DIFF, ANEU, BMP, CBC, GFR #### [place] [address] WBC 5.4 10 3/mcL Normal 4.5-10.8 [facility] Comment on above: Performed By: #### A DIFF, ANEU, BMP, CBC, GFR #### [place] [address] LABORATORYOrdered By: SYSTEM SYSTEM on 10-19-2024 Basophils [...] above: Interpretive Data: T esting performed on [employer] analyzer using enzymatic creatinine methodology. Electrolyte Balance [...] 18.3 % Low 20.0 - 40.0 % Workflow SS MCH (RBC) [Entitic mass] 28.6 [...] BC, MG, GFR, ADIFF, BMP, ANEU #### [facility] [address] [place] [address] Basophils/100 WBC (Bld) 0.6 % Normal 0.0-2.5 [facility] Comment on above: Performed By: #### C BC, MG, GFR, ADIFF, BMP, ANEU #### [address] [address] Eosinophil, Absolute 0.1 10 3/mcL Normal 0.0-0.7 [facility] Comment on above: Performed By: #### C BC, MG, GFR, ADIFF, BMP, ANEU #### [address] [address] Eosinophils/100 WBC (Bld) 1.7 % Normal 0.0-6.0 [facility] Comment on above: Performed By: #### C BC, MG, GFR, ADIFF, BMP, ANEU #### [address] [address] Lymphocyte, Absolute 1.2 10 3/mcL Normal 0.9-4.3 [facility] Comment on above: Performed By: #### C BC, MG, GFR, ADIFF, BMP, ANEU #### [address] [address] Lymphocytes/100 WBC (Bld) 19.0 % Low 20.0-40.0 [facility] Comment on above: Performed By: #### C BC, MG, GFR, ADIFF, BMP, ANEU #### [address] [address] Monocyte, Absolute 0.9 10 3/mcL Normal 0.1-1.4 [facility] Comment on above: Performed By: #### C BC, MG, GFR, ADIFF, BMP, ANEU #### [address] [address] Monocytes/100 WBC (Bld) 14.1 % High 2.0-13.0 [facility] Comment on above: Performed By: #### C BC, MG, GFR, ADIFF, BMP, ANEU #### [address] [address] Neutrophils/100 WBC (Bld) 64.6 % Normal 50.0-75.0 [facility] Comment on above: Performed By: #### C BC, MG, GFR, ADIFF, BMP, ANEU #### [address] [address] Basophil, Absolute 0.0 10 3/mcL Normal 0.0-0.3 [facility] Comment on above: Performed By: #### C BC, MG, GFR, ADIFF, BMP, ANEU #### [address] [address] Basophils/100 WBC (Bld) 0.4 % Normal 0.0-2.5 [facility] Comment on above: Performed By: #### C BC, MG, GFR, ADIFF, BMP, ANEU #### [address] [address] Eosinophil, Absolute 0.1 10 3/mcL Normal 0.0-0.7 [facility] Comment on above: Performed By: #### C BC, MG, GFR, ADIFF, BMP, ANEU #### [address] [address] Eosinophils/100 WBC (Bld) 1.2 % Normal 0.0-6.0 [facility] Comment on above: Performed By: #### C BC, MG, GFR, ADIFF, BMP, ANEU #### [address] [address] Lymphocyte, Absolute 0.7 10 3/mcL Low 0.9-4.3 [facility] Comment on above: Performed By: #### C BC, MG, GFR, ADIFF, BMP, ANEU #### [address] [address] Lymphocytes/100 WBC (Bld) 16.1 % Low 20.0-40.0 [facility] Comment on above: Performed By: #### C BC, MG, GFR, ADIFF, BMP, ANEU #### [address] [address] Monocyte, Absolute 0.5 10 3/mcL Normal 0.1-1.4 [facility] Comment on above: Performed By: #### C BC, MG, GFR, ADIFF, BMP, ANEU #### [address] [address] Monocytes/100 WBC (Bld) 11.8 % Normal 2.0-13.0 [facility] Comment on above: Performed By: #### C BC, MG, GFR, ADIFF, BMP, ANEU #### [address] [address] Neutrophils/100 WBC (Bld) 70.5 % Normal 50.0-75.0 [facility] Comment on above: Performed By: #### C BC, MG, GFR, ADIFF, BMP, ANEU #### [address] [address] .GFRon 10-18-2024 Estimated Glomerular Filtration Rate 112 ml/min/1.73sqm [facility] Comment on above: Result Comment: Stages [...] BC, MG, GFR, ADIFF, BMP, ANEU #### [address] [address] Estimated Glomerular Filtration Rate 114 ml/min/1.73sqm [facility] MAIN Comment on above: Result Comment: Stages [...] BC, MG, GFR, ADIFF, BMP, ANEU #### [address] [address] .NEUABSon 10-18-2024 Neutrophil, Absolute 3.9 10 3/mcL Normal 2.3-8.1 [facility] Comment on above: Performed By: #### C BC, MG, GFR, ADIFF, BMP, ANEU #### [place] [address] Neutrophil, Absolute 3.3 10 3/mcL Normal 2.3-8.1 [facility] Comment on above: Performed By: #### C BC, MG, GFR, ADIFF, BMP, ANEU #### [address] 10-18-2024 BUN/Creatinine Ratio 9.0 ratio Low 10.0-22.0 [facility] Comment on above: Performed By: #### C BC, MG, GFR, ADIFF, BMP, ANEU #### [place] [address] Calcium [Mass/Vol] 8.7 mg/dL Normal 8.7-10.4 [facility] Comment on above: Performed By: #### C BC, MG, GFR, ADIFF, BMP, ANEU #### [place] [address] Chloride [Moles/Vol] 99 mmol/L Normal 98-110 [facility] Comment on above: Performed By: #### C BC, MG, GFR, ADIFF, BMP, ANEU #### [place] [address] CO2 [Moles/Vol] 33 mmol/L High 22-32 [facility] Comment on above: Performed By: #### C BC, MG, GFR, ADIFF, BMP, ANEU #### [place] [address] Creatinine [Mass/Vol] 0.67 mg/dL Normal 0.60-1.40 [facility] Comment on above: Result Comment: Test ing performed on [employer] analyzer using enzymatic creatinine methodology. Performed By: #### C BC, MG, GFR, ADIFF, BMP, ANEU #### [address] [address] Electrolyte Balance 5.0 mEq/L Normal 4.0-15.0 [facility] Comment on above: Performed By: #### C BC, MG, GFR, ADIFF, BMP, ANEU #### [address] [address] Glucose [Mass/Vol] 115 mg/dL High 70-110 [facility] Comment on above: Performed By: #### C BC, MG, GFR, ADIFF, BMP, ANEU #### [address] [address] Potassium [Moles/Vol] 3.4 mmol/L Low 3.5-5.0 [facility] Comment on above: Performed By: #### C BC, MG, GFR, ADIFF, BMP, ANEU #### [place] [id number] Sodium [Moles/Vol] 137 mmol/L Normal 136-145 [facility] Comment on above: Performed By: #### C BC, MG, GFR, ADIFF, BMP, ANEU #### [address] [address] Urea nitrogen [Mass/Vol] 6.0 mg/dL Low 8.0-22.0 [facility] Comment on above: Performed By: #### C BC, MG, GFR, ADIFF, BMP, ANEU #### [place] [id number] BUN/Creatinine Ratio Unable to Calculate Normal 10.0-2 2.0 [facility] Comment on above: Order Comment: Pleas e draw daily labs at 3 AM for 3 days Result Comment: Unab le to calculate this test result accurately. Results used to calculate this test are outside the reportable range. Performed By: #### C BC, MG, GFR, ADIFF, BMP, ANEU #### [address] [address] Urea nitrogen [Mass/Vol] mg/dL Low 8.0-22.0 [facility] Comment on above: Order Comment: Pleas e draw daily labs at 3 AM for 3 days Performed By: #### C BC, MG, GFR, ADIFF, BMP, ANEU #### [address] [address] Calcium [Mass/Vol] 9.2 mg/dL Normal 8.7-10.4 [facility] Comment on above: Order Comment: Pleas e draw daily labs at 3 AM for 3 days Performed By: #### C BC, MG, GFR, ADIFF, BMP, ANEU #### [address] [address] Chloride [Moles/Vol] 101 mmol/L Normal 98-110 [facility] Comment on above: Order Comment: Pleas e draw daily labs at 3 AM for 3 days Performed By: #### C BC, MG, GFR, ADIFF, BMP, ANEU #### [address] [address] CO2 [Moles/Vol] 33 mmol/L High 22-32 [facility] Comment on above: Order Comment: Pleas e draw daily labs at 3 AM for 3 days Performed By: #### C BC, MG, GFR, ADIFF, BMP, ANEU #### [address] [address] Creatinine [Mass/Vol] 0.63 mg/dL Normal 0.60-1.40 [facility] Comment on above: Order Comment: Pleas e draw daily labs at 3 AM for 3 days Result Comment: Test ing performed on [employer] analyzer using enzymatic creatinine methodology. Performed By: #### C BC, MG, GFR, ADIFF, BMP, ANEU #### [address] [address] Electrolyte Balance 5.0 mEq/L Normal 4.0-15.0 [facility] Comment on above: Order Comment: Pleas e draw daily labs at 3 AM for 3 days Performed By: #### C BC, MG, GFR, ADIFF, BMP, ANEU #### [address] [address] Glucose [Mass/Vol] 110 mg/dL Normal 70-110 [facility] Comment on above: Order Comment: Pleas e draw daily labs at 3 AM for 3 days Performed By: #### C BC, MG, GFR, ADIFF, BMP, ANEU #### [place] [address] Potassium [Moles/Vol] 3.6 mmol/L Normal 3.5-5.0 [facility] Comment on above: Order Comment: Pleas e draw daily labs at 3 AM for 3 days Performed By: #### C BC, MG, GFR, ADIFF, BMP, ANEU #### [place] [address] Sodium [Moles/Vol] 139 mmol/L Normal 136-145 [facility] Comment on above: Order Comment: Pleas e draw daily labs at 3 AM for 3 days Performed By: #### C BC, MG, GFR, ADIFF, BMP, ANEU #### [address] [address] CBCon 10-18-2024 Erythrocyte distribution width (RBC) [Ratio] 17.3 % High 11.5-15.5 [facility] Comment on above: Performed By: #### C BC, MG, GFR, ADIFF, BMP, ANEU #### [place] [address] Hematocrit (Bld) [Volume fraction] 41.4 % Normal 40.0-52.0 [facility] Comment on above: Performed By: #### C BC, MG, GFR, ADIFF, BMP, ANEU #### [place] [address] Hgb 13.5 G/dL Normal 13.0-17.5 [facility] Comment on above: Performed By: #### C BC, MG, GFR, ADIFF, BMP, ANEU #### [place] [address] MCH (RBC) [Entitic mass] 28.9 pg Normal 27.0-33.0 [facility] Comment on above: Performed By: #### C BC, MG, GFR, ADIFF, BMP, ANEU #### [place] [address] MCHC 32.7 G/dL Normal 32.0-36.0 [facility] Comment on above: Performed By: #### C BC, MG, GFR, ADIFF, BMP, ANEU #### [place] [address] MCV (RBC) [Entitic vol] 88.4 fL Normal 81.0-100.0 [facility] Comment on above: Performed By: #### C BC, MG, GFR, ADIFF, BMP, ANEU #### [place] [address] Platelet 158 10 3/mcL Normal 150-450 [facility] Comment on above: Performed By: #### C BC, MG, GFR, ADIFF, BMP, ANEU #### [place] [address] Platelet mean volume (Bld) [Entitic vol] 7.9 fL Normal 6.4-10.5 [facility] Comment on above: Performed By: #### C BC, MG, GFR, ADIFF, BMP, ANEU #### [place] [address] RBC 4.68 10 6/mcL Normal 4.50-6.00 [facility] Comment on above: Performed By: #### C BC, MG, GFR, ADIFF, BMP, ANEU #### [place] [id number] WBC 6.1 10 3/mcL Normal 4.5-10.8 [facility] Comment on above: Performed By: #### C BC, MG, GFR, ADIFF, BMP, ANEU #### [place] [address] Erythrocyte distribution width (RBC) [Ratio] 16.9 % High 11.5-15.5 [facility] Comment on above: Order Comment: QNS Performed By: #### C BC, MG, GFR, ADIFF, BMP, ANEU #### [place] [address] Hematocrit (Bld) [Volume fraction] 41.4 % Normal 40.0-52.0 [facility] Comment on above: Order Comment: QNS Performed By: #### C BC, MG, GFR, ADIFF, BMP, ANEU #### [place] [address] Hgb 13.6 G/dL Normal 13.0-17.5 [facility] Comment on above: Order Comment: QNS Performed By: #### C BC, MG, GFR, ADIFF, BMP, ANEU #### [place] [address] MCH (RBC) [Entitic mass] 29.0 pg Normal 27.0-33.0 [facility] Comment on above: Order Comment: QNS Performed By: #### C BC, MG, GFR, ADIFF, BMP, ANEU #### [place] [address] MCHC 32.8 G/dL Normal 32.0-36.0 [facility] Comment on above: Order Comment: QNS Performed By: #### C BC, MG, GFR, ADIFF, BMP, ANEU #### [place] [address] MCV (RBC) [Entitic vol] 88.3 fL Normal 81.0-100.0 [facility] Comment on above: Order Comment: QNS Performed By: #### C BC, MG, GFR, ADIFF, BMP, ANEU #### [place] [address] Platelet 127 10 3/mcL Low 150-450 [facility] Comment on above: Order Comment: QNS Performed By: #### C BC, MG, GFR, ADIFF, BMP, ANEU #### [place] [address] Platelet mean volume (Bld) [Entitic vol] 7.7 fL Normal 6.4-10.5 [facility] Comment on above: Order Comment: QNS Performed By: #### C BC, MG, GFR, ADIFF, BMP, ANEU #### [place] [address] RBC 4.70 10 6/mcL Normal 4.50-6.00 [facility] Comment on above: Order Comment: QNS Performed By: #### C BC, MG, GFR, ADIFF, BMP, ANEU #### [facility] [address] [place] [address] WBC 4.6 10 3/mcL Normal 4.5-10.8 [facility] Comment on above: Order Comment: QNS Performed By: #### C BC, MG, GFR, ADIFF, BMP, ANEU #### [facility] [address] [place] [address] LABORATORYOrdered By: SYSTEM SYSTEM on 10-18-2024 Basophils [...] above: Interpretive Data: T esting performed on [employer] analyzer using enzymatic creatinine methodology. Electrolyte [...] A DIFF, ANEU, BMP, CBC, GFR #### [address] [address] Basophils/100 WBC (Bld) 0.6 % Normal 0.0-2.5 [facility] Comment on above: Performed By: #### A DIFF, ANEU, BMP, CBC, GFR #### [address] [address] Eosinophil, Absolute 0.1 10 3/mcL Normal 0.0-0.7 [facility] Comment on above: Performed By: #### A DIFF, ANEU, BMP, CBC, GFR #### [address] [address] Eosinophils/100 WBC (Bld) 1.1 % Normal 0.0-6.0 [facility] Comment on above: Performed By: #### A DIFF, ANEU, BMP, CBC, GFR #### [address] [address] Lymphocyte, Absolute 0.9 10 3/mcL Normal 0.9-4.3 [facility] Comment on above: Performed By: #### A DIFF, ANEU, BMP, CBC, GFR #### [address] [address] Lymphocytes/100 WBC (Bld) 17.7 % Low 20.0-40.0 [facility] Comment on above: Performed By: #### A DIFF, ANEU, BMP, CBC, GFR #### [address] [address] Monocyte, Absolute 0.6 10 3/mcL Normal 0.1-1.4 [facility] Comment on above: Performed By: #### A DIFF, ANEU, BMP, CBC, GFR #### [address] [address] Monocytes/100 WBC (Bld) 11.1 % Normal 2.0-13.0 [facility] Comment on above: Performed By: #### A DIFF, ANEU, BMP, CBC, GFR #### [address] [address] Neutrophils/100 WBC (Bld) 69.5 % Normal 50.0-75.0 [facility] Comment on above: Performed By: #### A DIFF, ANEU, BMP, CBC, GFR #### [address] [address] .GFRon 10-17-2024 Estimated Glomerular Filtration Rate 113 ml/min/1.73sqm Normal [facility] Comment on [...] A DIFF, ANEU, BMP, CBC, GFR #### [address] [address] .NEUABSon 10-17-2024 Neutrophil, Absolute 3.7 10 3/mcL Normal 2.3-8.1 [facility] Comment on above: Performed By: #### A DIFF, ANEU, BMP, CBC, GFR #### [address] [address] BMPon 10-17-2024 BUN/Creatinine Ratio 7.7 ratio Low 10.0-22.0 [facility] Comment on above: Performed By: #### A DIFF, ANEU, BMP, CBC, GFR #### [address] [address] Calcium [Mass/Vol] 8.5 mg/dL Low 8.7-10.4 [facility] Comment on above: Performed By: #### A DIFF, ANEU, BMP, CBC, GFR #### [address] [address] Chloride [Moles/Vol] 101 mmol/L Normal 98-110 [facility] Comment on above: Performed By: #### A DIFF, ANEU, BMP, CBC, GFR #### [address] [address] CO2 [Moles/Vol] 31 mmol/L Normal 22-32 [facility] Comment on above: Performed By: #### A DIFF, ANEU, BMP, CBC, GFR #### [address] [address] Creatinine [Mass/Vol] 0.65 mg/dL Normal 0.60-1.40 [facility] Comment on above: Result Comment: Test ing performed on [employer] analyzer using enzymatic creatinine methodology. Performed By: #### A DIFF, ANEU, BMP, CBC, GFR #### [address] [address] Electrolyte Balance 7.0 mEq/L Normal 4.0-15.0 [facility] Comment on above: Performed By: #### A DIFF, ANEU, BMP, CBC, GFR #### [address] [address] Glucose [Mass/Vol] 120 mg/dL High 70-110 [facility] Comment on above: Performed By: #### A DIFF, ANEU, BMP, CBC, GFR #### [address] [address] Potassium [Moles/Vol] 3.3 mmol/L Low 3.5-5.0 [facility] Comment on above: Performed By: #### A DIFF, ANEU, BMP, CBC, GFR #### [address] [address] Sodium [Moles/Vol] 139 mmol/L Normal 136-145 [facility] Comment on above: Performed By: #### A DIFF, ANEU, BMP, CBC, GFR #### [place] [address] Urea nitrogen [Mass/Vol] 5.0 mg/dL Low 8.0-22.0 [facility] Comment on above: Performed By: #### A DIFF, ANEU, BMP, CBC, GFR #### [place] [address] CBCon 10-17-2024 Erythrocyte distribution width (RBC) [Ratio] 17.0 % High 11.5-15.5 [facility] Comment on above: Performed By: #### A DIFF, ANEU, BMP, CBC, GFR #### [place] [address] Hematocrit (Bld) [Volume fraction] 40.3 % Normal 40.0-52.0 [facility] Comment on above: Performed By: #### A DIFF, ANEU, BMP, CBC, GFR #### [place] [address] Hgb 13.2 G/dL Normal 13.0-17.5 [facility] Comment on above: Performed By: #### A DIFF, ANEU, BMP, CBC, GFR #### [place] [address] MCH (RBC) [Entitic mass] 28.6 pg Normal 27.0-33.0 [facility] Comment on above: Performed By: #### A DIFF, ANEU, BMP, CBC, GFR #### [place] [address] MCHC 32.6 G/dL Normal 32.0-36.0 [facility] Comment on above: Performed By: #### A DIFF, ANEU, BMP, CBC, GFR #### [place] [address] MCV (RBC) [Entitic vol] 87.6 fL Normal 81.0-100.0 [facility] Comment on above: Performed By: #### A DIFF, ANEU, BMP, CBC, GFR #### [place] [address] Platelet 132 10 3/mcL Low 150-450 [facility] Comment on above: Performed By: #### A DIFF, ANEU, BMP, CBC, GFR #### [facility] [address] [place] [address] Platelet mean volume (Bld) [Entitic vol] 7.8 fL Normal 6.4-10.5 [facility] Comment on above: Performed By: #### A DIFF, ANEU, BMP, CBC, GFR #### [facility] [address] [place] [address] RBC 4.60 10 6/mcL Normal 4.50-6.00 [facility] Comment on above: Performed By: #### A DIFF, ANEU, BMP, CBC, GFR #### [place] [id number] WBC 5.4 10 3/mcL Normal 4.5-10.8 [facility] Comment on above: Performed By: #### A DIFF, ANEU, BMP, CBC, GFR #### [place] [id number] CT ANKLE W/O CONTRAST RIGHTo n 10-17-2024 [...] spanning external fixator, multiplanar 10/17. transfer from [facility]. for right ankle fracture with dislocation. [...] seen at the ankle. Interpreted by: Lucius Jean MD Preliminary Report By: Lucius Jean MD Electronically signed By Lucius Jean MD Dictated Date: 10/17/2024 1:10:32 PM Prelim Date: 10/17/2024 1:17:29 PM Sign Date: 10/17/2024 1:17:29 PM Ordering Provider: SUZE MISHRA [facility] MAIN LABORATORYOrdered By: SYSTEM SYSTEM on 10-17-2024 PT Coag (PPP) [Time] 13.7 s Normal 9.0 - 1 4.4 seconds SILVIA Reeves Comment on above: Interpretive Data: E ffective 12/11/07, Protime results may be affected by some antibiotics (i.e. Ciprofloxacin, Azithromycin, Bactrim) which may potentiate the action of oral anticoagulants, with further increases in Protime/INR. PT International Ratio 1.2 ratio Invalid Interpretation Code Lala HASSAN Comment on above: Interpretive Data: Baljinder linn [employer] (CHEST, 1991, 102:[id number]) recommended therapeutic range for oral anticoagulant therapy is: LOW RISK: Prophylaxis of venous thrombosis INR: 2.0-3.0 Treatment of pulmonary embolism 2.0-3.0 Prevention of systemic embolism 2.0-3.0 HIGH RISK: Mechanical prosthetic valves 2.5-3.5 PROon 10-17-2024 INR Coag (PPP) [Relative time] 1.2 {INR} [facility] MAIN Comment on above: Result Comment: [employer] (CHEST, 1991, [id number]) recommended therapeutic range for oral anticoagulant therapy is: LOW RISK: Prophylaxis of venous thrombosis INR: 2.0-3.0 Treatment of pulmonary embolism 2.0-3.0 Prevention of systemic embolism 2.0-3.0 HIGH RISK: Mechanical prosthetic valves 2.5-3.5 Performed By: #### A DIFF, ANEU, BMP, CBC, GFR #### [address] [address] PT Coag (PPP) [Time] 13.7 s Normal 9.0-14.4 [facility] Comment on above: Result Comment: Effe ctive 12/11/07, Protime results may be affected by some antibiotics (i.e. Ciprofloxacin, Azithromycin, Bactrim) which may potentiate the action of oral anticoagulants, with further increases in Protime/INR. Performed By: #### A DIFF, ANEU, BMP, CBC, GFR #### [address] [address] XR FLUORO 1-2 HRS TECH TIMEo n [...] Intraoperative fluoroscopic images. Please refer to the slitter creaser slotter operator's report for further information. I have personally reviewed the images of this examination and agree with the resident's findings and interpretation. Interpreted by: Beau Wahl Preliminary Report By: Nadya Hudson Electronically signed By Beau Wahl Dictated Date: 10/17/2024 1:42:02 PM Prelim Date: 10/17/2024 2:15:08 PM Sign Date: 10/17/2024 2:15:08 PM Ordering Provider: NANI Kate [facility] .Auto Diffon 10-16-2024 Basophil, Absolute 0.1 10 3/mcL Normal 0.0-0.3 [facility] Comment on above: Performed By: #### C BC, MG, GFR, ADIFF, BMP, ANEU #### [address] [address] Basophils/100 WBC (Bld) 0.8 % Normal 0.0-2.5 [facility] Comment on above: Performed By: #### C BC, MG, GFR, ADIFF, BMP, ANEU #### [address] [address] Eosinophil, Absolute 0.1 10 3/mcL Normal 0.0-0.7 [facility] Comment on above: Performed By: #### C BC, MG, GFR, ADIFF, BMP, ANEU #### [address] [address] Eosinophils/100 WBC (Bld) 1.2 % Normal 0.0-6.0 [facility] Comment on above: Performed By: #### C BC, MG, GFR, ADIFF, BMP, ANEU #### [address] [address] Lymphocyte, Absolute 1.4 10 3/mcL Normal 0.9-4.3 [facility] Comment on above: Performed By: #### C BC, MG, GFR, ADIFF, BMP, ANEU #### [address] [address] Lymphocytes/100 WBC (Bld) 19.8 % Low 20.0-40.0 [facility] Comment on above: Performed By: #### C BC, MG, GFR, ADIFF, BMP, ANEU #### [address] [address] Monocyte, Absolute 0.7 10 3/mcL Normal 0.1-1.4 [facility] Comment on above: Performed By: #### C BC, MG, GFR, ADIFF, BMP, ANEU #### [address] [address] Monocytes/100 WBC (Bld) 10.7 % Normal 2.0-13.0 [facility] Comment on above: Performed By: #### C BC, MG, GFR, ADIFF, BMP, ANEU #### [address] [address] Neutrophils/100 WBC (Bld) 67.5 % Normal 50.0-75.0 [facility] Comment on above: Performed By: #### C BC, MG, GFR, ADIFF, BMP, ANEU #### [address] [address] Basophil, Absolute 0.0 10 3/mcL Normal 0.0-0.3 [facility] Comment on above: Performed By: #### C BC, MG, GFR, ADIFF, BMP, ANEU #### [address] [address] Basophils/100 WBC (Bld) 0.7 % Normal 0.0-2.5 [facility] Comment on above: Performed By: #### C BC, MG, GFR, ADIFF, BMP, ANEU #### [place] [id number] Eosinophil, Absolute 0.1 10 3/mcL Normal 0.0-0.7 [facility] Comment on above: Performed By: #### C BC, MG, GFR, ADIFF, BMP, ANEU #### [place] [id number] Eosinophils/100 WBC (Bld) 0.8 % Normal 0.0-6.0 [facility] Comment on above: Performed By: #### C BC, MG, GFR, ADIFF, BMP, ANEU #### [place] [address] Lymphocyte, Absolute 1.1 10 3/mcL Normal 0.9-4.3 [facility] Comment on above: Performed By: #### C BC, MG, GFR, ADIFF, BMP, ANEU #### [address] [address] Lymphocytes/100 WBC (Bld) 17.2 % Low 20.0-40.0 [facility] Comment on above: Performed By: #### C BC, MG, GFR, ADIFF, BMP, ANEU #### [address] [address] Monocyte, Absolute 0.6 10 3/mcL Normal 0.1-1.4 [facility] Comment on above: Performed By: #### C BC, MG, GFR, ADIFF, BMP, ANEU #### [place] [id number] Monocytes/100 WBC (Bld) 8.7 % Normal 2.0-13.0 [facility] Comment on above: Performed By: #### C BC, MG, GFR, ADIFF, BMP, ANEU #### [address] [address] Neutrophils/100 WBC (Bld) 72.6 % Normal 50.0-75.0 [facility] Comment on above: Performed By: #### C BC, MG, GFR, ADIFF, BMP, ANEU #### [address] [address] .GFRon 10-16-2024 Estimated Glomerular Filtration Rate 110 ml/min/1.73sqm [facility] Comment on above: Result Comment: Stages [...] A DIFF, ANEU, BMP, CBC, GFR #### [address] [address] Estimated Glomerular Filtration Rate 111 ml/min/1.73sqm [facility] Comment on above: Result Comment: Stages [...] BC, MG, GFR, ADIFF, BMP, ANEU #### [address] [address] .MDWon 10-16-2024 Monocyte Distribution Width 19.45 Normal 0.00-20.00 [facility] Comment on above: Result Comment: For ED adult patients suspected of sepsis, MDW<=20.0 does not rule out sepsis or risk of sepsis Performed By: #### C BC, MG, GFR, ADIFF, BMP, ANEU #### [place] [address] Monocyte Distribution Width 17.52 Normal 0.00-20.00 [facility] Comment on above: Result Comment: For ED adult patients suspected of sepsis, MDW<=20.0 does not rule out sepsis or risk of sepsis Performed By: #### C BC, MG, GFR, ADIFF, BMP, ANEU #### [place] [address] .NEUABSon 10-16-2024 Neutrophil, Absolute 4.7 10 3/mcL Normal 2.3-8.1 [facility] Comment on above: Performed By: #### C BC, MG, GFR, ADIFF, BMP, ANEU #### [place] [address] Neutrophil, Absolute 4.7 10 3/mcL Normal 2.3-8.1 [facility] Comment on above: Performed By: #### C BC, MG, GFR, ADIFF, BMP, ANEU #### [place] [address] ABO/Rh (Gel)on 10-16-2024 ABO/Rh Interp Positive Invalid Interpretation Code [facility] Comment on above: Performed By: #### A DIFF, ANEU, BMP, CBC, GFR #### [place] [id number] ABS (Gel)on 10-16-2024 ABSC Interp (Gel) Negative Normal [facility] Comment on above: Performed By: #### A DIFF, ANEU, BMP, CBC, GFR #### [facility] [address] [place] [address] Stefanie 10-16-2024 Ethanol Level <10.0 Normal [facility] Comment on above: Performed By: #### C BC, MG, GFR, ADIFF, BMP, ANEU #### [facility] [address] [place] [address] ANKLE COMPLETE RTon 10-17-19 ANKLE COMPLETE RT [address] [address] Patient: CARLOS ALBERTO KELLEY Phone#: : 1970 Age: 54 Gender: M Pt. Type: ER Account: [id number] Location: [facility] Ordering: JAKE MAXWELL Exam Date: 10/16/2024/13:23 Family Phys: Charge Code: [id number] Physician: [place] Order #: [id number] Dose#: PROCEDURE: X-RAY ANKLE COMPLETE RT MIN [...] Bagley MD on 10/16/2024 at 14:15 Normal [facility] BMPon 10-16-2024 BUN/Creatinine Ratio 15.9 ratio Normal 10.0-22.0 [facility] Comment on above: Performed By: #### C BC, MG, GFR, ADIFF, BMP, ANEU #### [place] [id number] Calcium [Mass/Vol] 9.4 mg/dL Normal 8.7-10.4 [facility] Comment on above: Performed By: #### C BC, MG, GFR, ADIFF, BMP, ANEU #### [place] [id number] Chloride [Moles/Vol] 103 mmol/L Normal 98-110 [facility] Comment on above: Performed By: #### C BC, MG, GFR, ADIFF, BMP, ANEU #### [address] [address] CO2 [Moles/Vol] 32 mmol/L Normal 22-32 [facility] Comment on above: Performed By: #### C BC, MG, GFR, ADIFF, BMP, ANEU #### [place] [id number] Creatinine [Mass/Vol] 0.69 mg/dL Normal 0.60-1.40 [facility] Comment on above: Result Comment: Test ing performed on EcoScra[employer] analyzer using enzymatic creatinine methodology. Performed By: #### C BC, MG, GFR, ADIFF, BMP, ANEU #### [place] [id number] Electrolyte Balance 5.0 mEq/L Normal 4.0-15.0 [facility] Comment on above: Performed By: #### C BC, MG, GFR, ADIFF, BMP, ANEU #### [place] [id number] Glucose [Mass/Vol] 94 mg/dL Normal 70-110 [facility] Comment on above: Performed By: #### C BC, MG, GFR, ADIFF, BMP, ANEU #### [place] [id number] Potassium [Moles/Vol] 3.6 mmol/L Normal 3.5-5.0 [facility] Comment on above: Performed By: #### C BC, MG, GFR, ADIFF, BMP, ANEU #### [place] [address] Sodium [Moles/Vol] 140 mmol/L Normal 136-145 [facility] Comment on above: Performed By: #### C BC, MG, GFR, ADIFF, BMP, ANEU #### [place] [address] Urea nitrogen [Mass/Vol] 11.0 mg/dL Normal 8.0-22.0 [facility] Comment on above: Performed By: #### C BC, MG, GFR, ADIFF, BMP, ANEU #### [place] [address] CBCon 10-16-2024 Erythrocyte distribution width (RBC) [Ratio] 16.5 % High 11.5-15.5 [facility] Comment on above: Performed By: #### C BC, MG, GFR, ADIFF, BMP, ANEU #### [place] [address] Hematocrit (Bld) [Volume fraction] 45.2 % Normal 40.0-52.0 [facility] Comment on above: Performed By: #### C BC, MG, GFR, ADIFF, BMP, ANEU #### [place] [address] Hgb 14.8 G/dL Normal 13.0-17.5 [facility] Comment on above: Performed By: #### C BC, MG, GFR, ADIFF, BMP, ANEU #### [place] [address] MCH (RBC) [Entitic mass] 28.8 pg Normal 27.0-33.0 [facility] Comment on above: Performed By: #### C BC, MG, GFR, ADIFF, BMP, ANEU #### [place] [address] MCHC 32.8 G/dL Normal 32.0-36.0 [facility] Comment on above: Performed By: #### C BC, MG, GFR, ADIFF, BMP, ANEU #### [place] [address] MCV (RBC) [Entitic vol] 87.8 fL Normal 81.0-100.0 [facility] Comment on above: Performed By: #### C BC, MG, GFR, ADIFF, BMP, ANEU #### [place] [address] Platelet 172 10 3/mcL Normal 150-450 [facility] Comment on above: Performed By: #### C BC, MG, GFR, ADIFF, BMP, ANEU #### [place] [address] Platelet mean volume (Bld) [Entitic vol] 7.9 fL Normal 6.4-10.5 [facility] Comment on above: Performed By: #### C BC, MG, GFR, ADIFF, BMP, ANEU #### [place] [address] RBC 5.14 10 6/mcL Normal 4.50-6.00 [facility] Comment on above: Performed By: #### C BC, MG, GFR, ADIFF, BMP, ANEU #### [place] [address] WBC 6.9 10 3/mcL Normal 4.5-10.8 [facility] Comment on above: Performed By: #### C BC, MG, GFR, ADIFF, BMP, ANEU #### [place] [address] Erythrocyte distribution width (RBC) [Ratio] 17.1 % High 11.5-15.5 [facility] Comment on above: Performed By: #### C BC, MG, GFR, ADIFF, BMP, ANEU #### [place] [address] Hematocrit (Bld) [Volume fraction] 43.2 % Normal 40.0-52.0 [facility] Comment on above: Performed By: #### C BC, MG, GFR, ADIFF, BMP, ANEU #### [place] [address] Hgb 14.3 G/dL Normal 13.0-17.5 [facility] Comment on above: Performed By: #### C BC, MG, GFR, ADIFF, BMP, ANEU #### [place] [address] MCH (RBC) [Entitic mass] 28.9 pg Normal 27.0-33.0 [facility] Comment on above: Performed By: #### C BC, MG, GFR, ADIFF, BMP, ANEU #### [place] [address] MCHC 33.0 G/dL Normal 32.0-36.0 [facility] Comment on above: Performed By: #### C BC, MG, GFR, ADIFF, BMP, ANEU #### [place] [address] MCV (RBC) [Entitic vol] 87.4 fL Normal 81.0-100.0 [facility] Comment on above: Performed By: #### C BC, MG, GFR, ADIFF, BMP, ANEU #### [place] [address] Platelet 152 10 3/mcL Normal 150-450 [facility] Comment on above: Performed By: #### C BC, MG, GFR, ADIFF, BMP, ANEU #### [place] [address] Platelet mean volume (Bld) [Entitic vol] 7.7 fL Normal 6.4-10.5 [facility] Comment on above: Performed By: #### C BC, MG, GFR, ADIFF, BMP, ANEU #### [place] [address] RBC 4.94 10 6/mcL Normal 4.50-6.00 [facility] Comment on above: Performed By: #### C BC, MG, GFR, ADIFF, BMP, ANEU #### [place] [address] WBC 6.5 10 3/mcL Normal 4.5-10.8 [facility] Comment on above: Performed By: #### C BC, MG, GFR, ADIFF, BMP, ANEU #### [place] [address] CBC + DIFFon 10-16-2024 Baso # 0.01 x10EE3/UL Normal 0.00 - 0.10 [facility] Comment on above: Performed By: #### 2 [address] #### [facility],[address] [place], [place] [address] Basophils/100 WBC (Bld) 0.2 % Normal 0.0 - 2.0 [facility] Comment on above: Performed By: #### 2 00503 #### [facility],[address] [place] [address] CBC + DIFF Normal [facility] Comment on above: Result Comment: CBC- COMPLETE BLOOD COUNT Performed By: #### 2 07999 #### [facility],[address] [place] [address] EO # 0.04 x10EE3/UL Normal 0.00 - 0.50 [facility] Comment on above: Performed By: #### 2 94485 #### [facility],[address] [place] [address] Eosinophils/100 WBC (Bld) 0.7 % Normal 0.0 - 7.0 [facility] Comment on above: Performed By: #### 2 46106 #### [facility],[address] [place] [address] Erythrocyte distribution width (RBC) [Ratio] 15.2 % Normal 12.0 - 15.6 [facility] Comment on above: Performed By: #### 2 66551 #### [facility],[address] [place] [address] Hematocrit (Bld) [Volume fraction] 44.1 % Normal 40.0 - 52.0 [facility] Comment on above: Performed By: #### 2 51009 #### [facility],[address] [place] [address] Hemoglobin (Bld) [Mass/Vol] 15.4 g/dL Normal 13.0 - 17.5 [facility] Comment on above: Performed By: #### 2 70714 #### [facility],[address] [place] [address] Lymph # 0.96 x10EE3/UL Normal 0.80 - 2.80 [facility] Comment on above: Performed By: #### 2 29786 #### [facility],[address] [place] [address] Lymphocytes/100 WBC (Bld) 17.1 % Low 20.0 - 45.0 [facility] Comment on above: Performed By: #### 2 84722 #### [facility],[address] [place] [address] MANUAL DIFF N/A Normal [facility] Comment on above: Performed By: #### 2 77246 #### [facility],[address] [place] [address] MCH (RBC) [Entitic mass] 31 pg Normal 27 - 33 [facility] Comment on above: Performed By: #### 2 13075 #### [facility],[address] [place] [address] MCHC 35 X10 3 Normal 32 - 36 [facility] Comment on above: Performed By: #### 2 74441 #### [facility],[address] [place] [address] MCV (RBC) [Entitic vol] 88 fL Normal 81 - 98 [facility] Comment on above: Performed By: #### 2 40029 #### [facility],[address] [place] [address] Parmer # 0.47 x10EE3/UL Normal 0.20 - 1.00 [facility] Comment on above: Performed By: #### 2 84403 #### [facility],[address] [place] [address] MONOS % 8.4 % Normal 0.0 - 10.0 [facility] Comment on above: Performed By: #### 2 51035 #### [facility],[address] [place] [address] Morphology Rocky (Bld) [Interp] N/A Normal [facility] Comment on above: Performed By: #### 2 10322 #### [facility],[address] [place] [address] Neut # 4.12 x10EE3/UL Normal 1.50 - 7.10 [facility] Comment on above: Performed By: #### 2 26182 #### [facility],[address] [place] [address] Neutrophils/100 WBC (Bld) 73.6 % Normal 46.0 - 76.0 [facility] Comment on above: Performed By: #### 2 34848 #### [facility],[address] [place] [address] PLATELET 148 x10EE3/UL Low 150 - 450 [facility] Comment on above: Performed By: #### 2 26274 #### [facility],[address] [place] [address] Platelet mean volume (Bld) [Entitic vol] 8.1 fL Normal 6.4 - 10.5 [facility] Comment on above: Result Comment: AUTO MATED DIFFERENTIAL Performed By: #### 2 55358 #### [facility],[address] [place] [address] RBC 5.02 x 10EE6/UL Normal 4.50 - 6.00 [facility] Comment on above: Performed By: #### 2 81945 #### [facility],[address] [place] [address] WBC 5.6 x 10EE3/UL Normal 4.5 - 10.8 [facility] Comment on above: Performed By: #### 2 52490 #### [facility],[address] [place] [address] CMPon 10-16-2024 Albumin Level 3.6 G/dL Normal 3.2-4.8 [facility] Comment on above: Performed By: #### A DIFF, ANEU, BMP, CBC, GFR #### [address] [address] Albumin/Globulin [Mass ratio] 1.0 {ratio} Normal 0.9-1.6 [facility] Comment on above: Performed By: #### A DIFF, ANEU, BMP, CBC, GFR #### [address] [address] ALP [Catalytic activity/Vol] 70 U/L Normal 38-126 [facility] Comment on above: Performed By: #### A DIFF, ANEU, BMP, CBC, GFR #### [address] [address] ALT [Catalytic activity/Vol] 12 U/L Normal 12-55 [facility] Comment on above: Performed By: #### A DIFF, ANEU, BMP, CBC, GFR #### [address] [address] AST [Catalytic activity/Vol] 17 U/L Normal 8-34 [facility] Comment on above: Performed By: #### A DIFF, ANEU, BMP, CBC, GFR #### [address] [address] Bili Total 0.60 mg/dL Normal 0.20-1.20 [facility] Comment on above: Result Comment: Use of this assay is not recommended for patients undergoing treatment with eltrombopag due to the potential for falsely elevated results. Performed By: #### A DIFF, ANEU, BMP, CBC, GFR #### [address] [address] BUN/Creatinine Ratio 14.1 ratio Normal 10.0-22.0 [facility] Comment on above: Performed By: #### A DIFF, ANEU, BMP, CBC, GFR #### [address] [address] Calcium [Mass/Vol] 9.0 mg/dL Normal 8.7-10.4 [facility] Comment on above: Performed By: #### A DIFF, ANEU, BMP, CBC, GFR #### [address] [address] Chloride [Moles/Vol] 102 mmol/L Normal 98-110 [facility] Comment on above: Performed By: #### A DIFF, ANEU, BMP, CBC, GFR #### [address] [address] CO2 [Moles/Vol] 33 mmol/L High 22-32 [facility] Comment on above: Performed By: #### A DIFF, ANEU, BMP, CBC, GFR #### [address] [address] Creatinine [Mass/Vol] 0.71 mg/dL Normal 0.60-1.40 [facility] Comment on above: Result Comment: Test ing performed on [employer] analyzer using enzymatic creatinine methodology. Performed By: #### A DIFF, ANEU, BMP, CBC, GFR #### [address] [address] Electrolyte Balance 4.0 mEq/L Normal 4.0-15.0 [facility] Comment on above: Performed By: #### A DIFF, ANEU, BMP, CBC, GFR #### [address] [address] Globulin 3.5 G/dL Normal 2.5-4.2 [facility] Comment on above: Performed By: #### A DIFF, ANEU, BMP, CBC, GFR #### [address] [address] Glucose [Mass/Vol] 109 mg/dL Normal 70-110 [facility] Comment on above: Performed By: #### A DIFF, ANEU, BMP, CBC, GFR #### [address] [address] Potassium [Moles/Vol] 3.7 mmol/L Normal 3.5-5.0 [facility] Comment on above: Performed By: #### A DIFF, ANEU, BMP, CBC, GFR #### [address] [address] Sodium [Moles/Vol] 139 mmol/L Normal 136-145 [facility] Comment on above: Performed By: #### A DIFF, ANEU, BMP, CBC, GFR #### [place] [address] [place] [address] Total Protein 7.1 G/dL Normal 5.7-8.2 [facility] Comment on above: Performed By: #### A DIFF, ANEU, BMP, CBC, GFR #### [facility] [address] [place] [address] Urea nitrogen [Mass/Vol] 10.0 mg/dL Normal 8.0-22.0 [facility] Comment on above: Performed By: #### A DIFF, ANEU, BMP, CBC, GFR #### [facility] [address] [place] [address] CMP with eGFRon 10-16-2024 AGE 54 years Normal [facility] Comment on above: Performed By: #### 2 44341 ####[facility],[address] [place] [address] Albumin [Mass/Vol] 3.4 g/dL Normal 3.4 - 5.0 [facility] Comment on above: Performed By: #### 2 44650 ####[facility],[address] [place] [address] Albumin/Globulin [Mass ratio] 0.9 {ratio} Normal 0.9 - 1.6 [facility] Comment on above: Performed By: #### 2 13501 ####[facility],[address] [place] [address] ALK PHOS 76 U/L Normal 46 - 116 [facility] Comment on above: Performed By: #### 2 32726 ####[facility],[address] [place] [address] ALT [Catalytic activity/Vol] 17 U/L Normal 16 - 63 [facility] Comment on above: Performed By: #### 2 36110 ####[facility],[address] [place] [address] Anion gap [Moles/Vol] 11 mmol/L Normal 10 - 20 [facility] Comment on above: Performed By: #### 2 83702 ####[facility],[address] [place] [address] AST [Catalytic activity/Vol] 17 U/L Normal 15 - 37 [facility] Comment on above: Performed By: #### 2 78720 ####[facility],[address] [place] [address] B/C RATIO 13 ratio Normal 0 - 30 [facility] Comment on above: Performed By: #### 2 02139 ####[facility],[address] [place] [address] Bilirubin [Mass/Vol] 0.5 mg/dL Normal 0.2 - 1.0 [facility] Comment on above: Performed By: #### 2 24388 ####[facility],[address] [place] [address] Calcium [Mass/Vol] 8.9 mg/dL Normal 8.5 - 10.1 [facility] Comment on above: Performed By: #### 2 78722 ####[facility],[address] [place] [address] Chloride [Moles/Vol] 101 mmol/L Normal 98 - 107 [facility] Comment on above: Performed By: #### 2 29438 ####[facility],[address] [place] [address]31 CMP with eGFR Normal [facility] Comment on above: Result Comment: COMP REHENSIVE METABOLIC PANEL Performed By: #### 2 82776 ####[facility],[address] [place] [address] CO2 [Moles/Vol] 30.7 mmol/L Normal 21.0 - 32.0 [facility] Comment on above: Performed By: #### 2 28769 ####[facility],[address] [place] [address] Creatinine [Mass/Vol] 0.96 mg/dL Normal 0.70 - 1.30 [facility] Comment on above: Performed By: #### 2 73909 ####[facility],[address] [place] [address] GFR/1.73 sq M.predicted among non-blacks MDRD (S/P/Bld) [Vol rate/Area] mL/min/{1.73_m2} Normal 60 - 999 [facility] Comment on above: Performed By: #### 2 59032 ####[facility],[address] [place] [address] Result Comment: ACCO RDING TO THE NATIONAL KIDNEY DISEASE EDUCATION PROGRAM(NKDE), A NORMAL eGFR IS A VALUE GREATER THAN OR EQUAL TO 60 ML/MIN/1.73 SQ METERS. CHRONIC KIDNEY DISEASE: <60mL/MIN/1.73 SQ METERS KIDNEY FAILURE: <15mL/MIN/1.73 SQ METERS THIS TEST SHOULD ONLY BE USED FOR PATIENTS 18 YEARS OF AGE AND OLDER. Globulin (S) [Mass/Vol] 3.7 g/dL Normal 1.5 - 3.8 [facility] Comment on above: Performed By: #### 2 35355 ####[facility],[address] [place] [address] Glucose [Mass/Vol] 94 mg/dL Normal 74 - 106 [facility] Comment on above: Performed By: #### 2 57399 ####[facility],[address] [place] [address] Potassium [Moles/Vol] 3.6 mmol/L Normal 3.5 - 5.1 [facility] Comment on above: Performed By: #### 2 95999 ####[facility],[address] [place] [address]286 Protein [Mass/Vol] 7.1 g/dL Normal 6.4 - 8.2 [facility] Comment on above: Performed By: #### 2 86368 ####[facility],[address] [place] [address] Sodium [Moles/Vol] 139 mmol/L Normal 136 - 145 [facility] Comment on above: Performed By: #### 2 27152 ####[facility],[address] [place] [address]672 Urea nitrogen [Mass/Vol] 12 mg/dL Normal 7 - 18 [facility] Comment on above: Performed By: #### 2 19324 ####[facility],[address] [place] [address] ED MED ADMINISTRATION DETAIL on 10-16-2024 ED MED ADMINISTRATION DETAIL Mannequin Refinisher Medication Administration Record [address] [address] [id number] 10/16/2024 Patient: CARLOS ALBERTO KELLEY Sex: Male : 1970 Age: 54y MEASUREMENTS: Wt: 140.2 kg, Ht/Wilson: 69.0 in, BMI: 45.63 ALLERGIES: [id number] Reductase Inhibitors Medication Ordered Medication Administration Date/Time [...] Destiney Chu R.N. 1 of 1 Normal [facility] ED NURSES CLINICAL NOTEon ED NURSES CLINICAL NOTE Nurse Narrative Nurse Clinical Narrative [address] [address] [id number] 10/16/2024 12:34:00 Patient: CARLOS ALBERTO KELLEY Sex: Male : 1970 Age: 54y Disposition: Transfer to [facility] Disposition Decision Time: 14:27 10/16/2024 Departure Time: [...] had swelling, redness and trouble walking. Treatment CREDIT NEGOTIATOR: Ice. SEPSIS SCREEN: NEGATIVE. SIRS criteria negative. [...] mg tablet -- 12:51 10/16/24 EKTAT Silvina [place], R.N. trazodone 100 mg tablet -- 12:51 [...] 12:51 10/16/24 EKTAT Silvina Maguire R.N. Allergies: Lhheovv-BLW-OlF Reductase Inhibitors -- 12:40 10/16/24 EKTAT Silvina [...] History 2 of 5 Nurse Narrative 12:34 05/21/25. SOCIAL HX: Never smoker. No alcohol use [...] 10/16/24. E (more content not included)... Normal [facility] ED ORDER SHEET (CPOE ONLY)on 10-16-2024 ED ORDER SHEET (CPOE ONLY) Order Sheet Order Sheet [id number] [place] [address] [id number] 10/16/2024 Patient: CARLOS ALBERTO KELLEY Sex: Male : 1970 Age: 54y MEASUREMENTS: Wt: 140.2 kg, Ht/Wilson: 69.0 in, BMI: 45.63 ALLERGIES: Mazsatx-DVE-JzF Reductase Inhibitors MEDICATION/IV/DRIP/FL UID ORDERS Order Description [...] 10/16/2024 Reymundo Carvajal Debra Schrock, R.N. R.NEverett CMP Stat Stat 14:00 10/16/2024 14:18 10/16/2024 14:19 10/16/2024 Reymundo Carvajal Debra Schrock, R.N. R.[place]verett 1 of 3 Order Sheet Lactate, Serum Stat Stat 14:00 10/16/2024 14:18 10/16/2024 14:19 10/16/2024 Reymundo Carvajal Debra Schrock, R.N. REverettNEverett BNP Stat Stat 14:00 10/16/2024 14:10 10/16/2024 [...] (10/16/2024 15:18 EDT)] 3 of 3 Normal [facility] ED PHYSICIAN CLINICAL REPORT on 10-16-2024 ED PHYSICIAN CLINICAL REPORT Narrative Physician Clinical Narrative [address] [address] [id number] 10/16/2024 12:34:00 Patient: CARLOS ALBERTO KELLEY Sex: Male : 1970 Age: 54y Disposition: Transfer to [facility] Disposition Decision Time: 14:27 10/16/2024 Measurements Wt: [...] pen injector Xarelto 20 mg tablet Allergies: Hvtxsid-WDF-OkC Reductase Inhibitors SOCIAL HISTORY Does not use [...] 148 x10/UL (more content not included)... Normal [facility] ED SUPER BILLon 10-16-2024 ED SUPER BILL [facility] [address] [place] [address] [phone] 10/16/2024 Patient: CARLOS ALBERTO KELLEY Sex: Male : 1970 Age: 54y Facility Professional Category Item Description Code Code Quantity Fee Total Nurse/E/M EMERGENCY 336535 1 $0.00 $0.00 DEPT VISIT HIGH SEVERITYFUNCJ (09520-46) Nurse/IV/IM/Infusions IVP initial (73012) 179456 1 $0.00 $0.00 Grand $0.00 Total Providers Reymundo Carvajal M.D. Chief Complaint Injury to right foot and right ankle. Principal Diagnosis Closed displaced, severely angulated right bimalleolar fracture. 1 of 2 [facility] ICD-10 Codes S82.841A: Displaced bimalleolar fracture of right lower leg, initial encounter for closed fracture 2 of 2 Normal [facility] ED VISIT SUMMARYon ED VISIT SUMMARY Visit Overview Visit Overview [address] [place] [address] [phone] 10/16/2024 Patient: CARLOS ALBERTO KELLEY Sex: Male : 1970 Age: 54y 10/16/2024 07:42 PM EDT ED Arrival:12:34 10/16/2024 EDT Status: Recent Travel:no Language:eng Adv Directive:No Isolation Status: Ethnicity:N Fall Risk:risk Infectious Disease Exposure:no Measurements:5'9" / 175.3 Self-Harm Status:risk Sepsis Screen:negative cm 309.0 lb / 140.2 kg Chief Complaint:RIGHT LOWER EXTREMITY PAIN, RIGHT LOWER EXTREMITY REDNESS, and RIGHT LOWER EXTREMITY SWELLING ALLERGIES Scoaqvi-KRO-KqV Reductase Inhibitors HOME MEDICATIONS albuterol sulfate 2.5 [...] Sat 12:47 10/16/24 93% O2 Sat 14:41 05/21/25 Pain 12:47 10/16/24 10 Pain 14:41 10/16/24 [...] RIGHT BIMALLEOLAR FRACTURE 4 of 4 Normal [facility] ED VITALS FLOW SHEETon 10-16 ED VITALS FLOW SHEET Vitals Vital Sign Flow Sheet [address] [address] [phone] 10/16/2024 Patient: CARLOS ALBERTO KELLEY Sex: Male [...] 98.9 F 10 2 of 2 Normal [facility] FOOT COMPLETE RTon FOOT COMPLETE RT [place] [address] Patient: CARLOS ALBERTO KELLEY Phone#: : 1970 Age: 54 Gender: M Pt. Type: ER Account: [id number] Location: [facility] Ordering: JAKE MAXWELL Exam Date: 10/16/2024/13:00 Family Phys: Charge Code: 436600 Physician: [place] Order #: [id number] Dose#: PROCEDURE: X-RAY FOOT RT COMPLETE MIN [...] Bagley MD on 10/16/2024 at 14:23 Normal [facility] LABORATORYOrdered By: SYSTEM SYSTEM on 10-16-2024 [...] [Moles/Vol] 1.1 mmol/L Normal 0.4 - 2.0 [facility] Comment on above: Performed By: #### 2 [id number] #### [facility],[address] [place], [place] [id number] NT-proBNPon 10-16-2024 Natriuretic peptide B (Bld) [Mass/Vol] 291 pg/mL High 0 - 125 [facility] Comment on above: Performed By: #### 2 16440 #### [facility],[address] [place] [address] PROTHROMBIN TIME AND INRon 0 10-16-2024 INR Coag (PPP) [Relative time] 1.4 {INR} High 0.8 - 1.2 [facility] Comment on above: Result Comment: T [...] MECHANICAL HEART VALVES Performed By: #### 2 [id number] ####[facility],[address] [place], [place] [address] PROTHROMBIN TIME AND INR Normal [facility] Comment on above: Result Comment: PROT HROMBIN TIME AND INR Performed By: #### 2 29000 ####[facility],[address] [place], [place] [id number] PT-COUMADIN 15.9 sec High 9.3 - 14.1 [facility] Comment on above: Performed By: #### 2 33312 ####[facility],[address] [place], [place] [id number] TIBIA-FIBULA RTon 10-16-2024 TIBIA-FIBULA [place] [address] Patient: CARLOS ALBERTO KELLEY Phone#: : 1970 Age: 54 Gender: M Pt. Type: ER Account: [id number] Location: [facility] Ordering: JAKE MAXWELL Exam Date: 10/16/2024/13:23 Family Phys: Charge Code: 302179 Physician: [place] Order #: [id number] Dose#: PROCEDURE: X-RAY TIB FIB RT 2 [...] Corrine Bagley MD on 10/16/2024 at 14:12 [facility] XR ANKLE MINIMUM 3 VIEWS LEF [...] 10/16/2024 10:39:42 PM Ordering Provider: RIC ARELLANO [facility] MAIN XR ANKLE MINIMUM 3 VIEWS RIG [...] 10/16/2024 9:20:54 PM Ordering Provider: RIC ARELLANO [facility] MAIN XR ANKLE MINIMUM 3 VIEWS RIGHT [...] 10/16/2024 7:53:07 PM Ordering Provider: EM GARCIA [facility] MAIN XR ANKLE MINIMUM 3 VIEWS RIGHT [...] 10/16/2024 6:28:12 PM Ordering Provider: EM Kate [facility] .Auto Diffon 10-04-2024 Basophil, Absolute 0.0 10 3/mcL Normal 0.0-0.3 [facility] Comment on above: Performed By: #### A DIFF, ANEU, BMP, CBC, GFR #### [address] [address] Basophils/100 WBC (Bld) 0.9 % Normal 0.0-2.5 [facility] Comment on above: Performed By: #### A DIFF, ANEU, BMP, CBC, GFR #### [address] [address] Eosinophil, Absolute 0.1 10 3/mcL Normal 0.0-0.7 [facility] Comment on above: Performed By: #### A DIFF, ANEU, BMP, CBC, GFR #### [address] [address] Eosinophils/100 WBC (Bld) 1.9 % Normal 0.0-6.0 [facility] Comment on above: Performed By: #### A DIFF, ANEU, BMP, CBC, GFR #### [address] [address] Lymphocyte, Absolute 1.0 10 3/mcL Normal 0.9-4.3 [facility] Comment on above: Performed By: #### A DIFF, ANEU, BMP, CBC, GFR #### [address] [address] Lymphocytes/100 WBC (Bld) 24.9 % Normal 20.0-40.0 [facility] Comment on above: Performed By: #### A DIFF, ANEU, BMP, CBC, GFR #### [address] [address] Monocyte, Absolute 0.3 10 3/mcL Normal 0.1-1.4 [facility] Comment on above: Performed By: #### A DIFF, ANEU, BMP, CBC, GFR #### [address] [address] Monocytes/100 WBC (Bld) 7.5 % Normal 2.0-13.0 [facility] Comment on above: Performed By: #### A DIFF, ANEU, BMP, CBC, GFR #### [address] [address] Neutrophils/100 WBC (Bld) 64.8 % Normal 50.0-75.0 [facility] Comment on above: Performed By: #### A DIFF, ANEU, BMP, CBC, GFR #### [address] [address] .GFRon 10-04-2024 Estimated Glomerular Filtration Rate 107 ml/min/1.73sqm Normal [facility] Comment on [...] A DIFF, ANEU, BMP, CBC, GFR #### [address] [address] .NEUABSon 10-04-2024 Neutrophil, Absolute 2.5 10 3/mcL Normal 2.3-8.1 [facility] Comment on above: Performed By: #### A DIFF, ANEU, BMP, CBC, GFR #### [address] [address] BMPon 10-04-2024 BUN/Creatinine Ratio 6.5 ratio Low 10.0-22.0 [facility] Comment on above: Performed By: #### A DIFF, ANEU, BMP, CBC, GFR #### [address] [address] Calcium [Mass/Vol] 8.5 mg/dL Low 8.7-10.4 [facility] Comment on above: Performed By: #### A DIFF, ANEU, BMP, CBC, GFR #### [address] [address] Chloride [Moles/Vol] 102 mmol/L Normal 98-110 [facility] Comment on above: Performed By: #### A DIFF, ANEU, BMP, CBC, GFR #### [address] [address] CO2 [Moles/Vol] 31 mmol/L Normal 22-32 [facility] Comment on above: Performed By: #### A DIFF, ANEU, BMP, CBC, GFR #### [address] [address] Creatinine [Mass/Vol] 0.77 mg/dL Normal 0.60-1.40 [facility] Comment on above: Result Comment: Test ing performed on EcoScraps analyzer using enzymatic creatinine methodology. Performed By: #### A DIFF, ANEU, BMP, CBC, GFR #### [address] [address] Electrolyte Balance 6.0 mEq/L Normal 4.0-15.0 [facility] Comment on above: Performed By: #### A DIFF, ANEU, BMP, CBC, GFR #### [address] [address] Glucose [Mass/Vol] 108 mg/dL Normal 70-110 [facility] Comment on above: Performed By: #### A DIFF, ANEU, BMP, CBC, GFR #### [address] [address] Potassium [Moles/Vol] 3.5 mmol/L Normal 3.5-5.0 [facility] Comment on above: Performed By: #### A DIFF, ANEU, BMP, CBC, GFR #### [address] [address] Sodium [Moles/Vol] 139 mmol/L Normal 136-145 [facility] Comment on above: Performed By: #### A DIFF, ANEU, BMP, CBC, GFR #### [place] [address] Urea nitrogen [Mass/Vol] 5.0 mg/dL Low 8.0-22.0 [facility] Comment on above: Performed By: #### A DIFF, ANEU, BMP, CBC, GFR #### [place] [address] CBCon 10-04-2024 Erythrocyte distribution width (RBC) [Ratio] 17.1 % High 11.5-15.5 [facility] Comment on above: Performed By: #### A DIFF, ANEU, BMP, CBC, GFR #### [place] [address] Hematocrit (Bld) [Volume fraction] 42.5 % Normal 40.0-52.0 [facility] Comment on above: Performed By: #### A DIFF, ANEU, BMP, CBC, GFR #### [place] [address] Hgb 13.8 G/dL Normal 13.0-17.5 [facility] Comment on above: Performed By: #### A DIFF, ANEU, BMP, CBC, GFR #### [place] [id number] MCH (RBC) [Entitic mass] 28.4 pg Normal 27.0-33.0 [facility] Comment on above: Performed By: #### A DIFF, ANEU, BMP, CBC, GFR #### [place] [id number] MCHC 32.6 G/dL Normal 32.0-36.0 [facility] Comment on above: Performed By: #### A DIFF, ANEU, BMP, CBC, GFR #### [place] [address] MCV (RBC) [Entitic vol] 87.2 fL Normal 81.0-100.0 [facility] Comment on above: Performed By: #### A DIFF, ANEU, BMP, CBC, GFR #### [address] [address] Platelet 120 10 3/mcL Low 150-450 [facility] Comment on above: Performed By: #### A DIFF, ANEU, BMP, CBC, GFR #### [facility] [address] [place] [address] Platelet mean volume (Bld) [Entitic vol] 7.4 fL Normal 6.4-10.5 [facility] Comment on above: Performed By: #### A DIFF, ANEU, BMP, CBC, GFR #### [id number] [place] [address] RBC 4.87 10 6/mcL Normal 4.50-6.00 [facility] Comment on above: Performed By: #### A DIFF, ANEU, BMP, CBC, GFR #### [address] [address] WBC 3.8 10 3/mcL Low 4.5-10.8 [facility] Comment on above: Performed By: #### A DIFF, ANEU, BMP, CBC, GFR #### [address] [address] LABORATORYOrdered By: Adenike Swain on 10-04-2024 Blood Glucose Testing Reason Routine (10/04/24 7:18 AM) [facility] Glucose [Mass/Vol] 100 mg/dL Normal 70 - 110 mg/dL [facility] LABORATORYOrdered By: SYSTEM SYSTEM on 10-04-2024 [...] 0.77 mg/dL Normal 0.60 - 1.40 mg/dL [facility] Comment on above: Interpretive Data: T esting performed on EcoScraps analyzer using enzymatic creatinine methodology. Electrolyte Balance [...] Filtration Rate 107 ml/min/1.73sqm Invalid Interpretation Code [facility] Comment on above: Interpretive Data: Stages [...] 28.4 pg Normal 27.0 - 33.0 pg Workflow [...] A DIFF, ANEU, BMP, CBC, GFR #### [address] [address] .Auto Diffon 10-03-2024 Basophil, Absolute 0.0 10 3/mcL Normal 0.0-0.3 [facility] Comment on above: Performed By: #### A DIFF, ANEU, BMP, CBC, GFR #### [address] [address] Basophils/100 WBC (Bld) 0.9 % Normal 0.0-2.5 [facility] Comment on above: Performed By: #### A DIFF, ANEU, BMP, CBC, GFR #### [address] [address] Eosinophil, Absolute 0.1 10 3/mcL Normal 0.0-0.7 [facility] Comment on above: Performed By: #### A DIFF, ANEU, BMP, CBC, GFR #### [address] [address] Eosinophils/100 WBC (Bld) 2.0 % Normal 0.0-6.0 [facility] Comment on above: Performed By: #### A DIFF, ANEU, BMP, CBC, GFR #### [address] [address] Lymphocyte, Absolute 0.9 10 3/mcL Normal 0.9-4.3 [facility] Comment on above: Performed By: #### A DIFF, ANEU, BMP, CBC, GFR #### [address] [address] Lymphocytes/100 WBC (Bld) 21.1 % Normal 20.0-40.0 [facility] Comment on above: Performed By: #### A DIFF, ANEU, BMP, CBC, GFR #### [address] [address] Monocyte, Absolute 0.3 10 3/mcL Normal 0.1-1.4 [facility] Comment on above: Performed By: #### A DIFF, ANEU, BMP, CBC, GFR #### [address] [address] Monocytes/100 WBC (Bld) 7.6 % Normal 2.0-13.0 [facility] Comment on above: Performed By: #### A DIFF, ANEU, BMP, CBC, GFR #### [address] [address] Neutrophils/100 WBC (Bld) 68.4 % Normal 50.0-75.0 [facility] Comment on above: Performed By: #### A DIFF, ANEU, BMP, CBC, GFR #### [address] [address] .GFRon 10-03-2024 Estimated Glomerular Filtration Rate 109 ml/min/1.73sqm Normal [facility] Comment on [...] A DIFF, ANEU, BMP, CBC, GFR #### [place] [address] .NEUABSon 10-03-2024 Neutrophil, Absolute 2.8 10 3/mcL Normal 2.3-8.1 [facility] Comment on above: Performed By: #### A DIFF, ANEU, BMP, CBC, GFR #### [place] [address] A1Con 10-03-2024 Glucose [Mass/Vol] 114 mg/dL Normal [facility] Comment on above: Result Comment: Zahida mated Average Glucose calculated by equation ((28.7xA1C)-46.7) Estimated average glucose (eAG) is a calculated value from Hemoglobin A1C and is promotions representative of the average blood glucose level in the last 2-3 month period. Normal range: less than 114 mg/dL Performed By: #### C BC, MG, GFR, ADIFF, BMP, ANEU #### [place] [address] HbA1c (Bld) [Mass fraction] 5.6 % Normal 4.0-6.0 [facility] Comment on above: Performed By: #### C BC, MG, GFR, ADIFF, BMP, ANEU #### [address] [address] CBCon 10-03-2024 Erythrocyte distribution width (RBC) [Ratio] 16.6 % High 11.5-15.5 [facility] Comment on above: Performed By: #### A DIFF, ANEU, BMP, CBC, GFR #### [place] [address] Hematocrit (Bld) [Volume fraction] 41.1 % Normal 40.0-52.0 [facility] Comment on above: Performed By: #### A DIFF, ANEU, BMP, CBC, GFR #### [place] [address] Hgb 13.5 G/dL Normal 13.0-17.5 [facility] Comment on above: Performed By: #### A DIFF, ANEU, BMP, CBC, GFR #### [place] [address] MCH (RBC) [Entitic mass] 28.7 pg Normal 27.0-33.0 [facility] Comment on above: Performed By: #### A DIFF, ANEU, BMP, CBC, GFR #### [place] [address] MCHC 32.9 G/dL Normal 32.0-36.0 [facility] Comment on above: Performed By: #### A DIFF, ANEU, BMP, CBC, GFR #### [place] [address] MCV (RBC) [Entitic vol] 87.2 fL Normal 81.0-100.0 [facility] Comment on above: Performed By: #### A DIFF, ANEU, BMP, CBC, GFR #### [place] [id number] Platelet 136 10 3/mcL Low 150-450 [facility] Comment on above: Performed By: #### A DIFF, ANEU, BMP, CBC, GFR #### [place] [id number] Platelet mean volume (Bld) [Entitic vol] 7.6 fL Normal 6.4-10.5 [facility] Comment on above: Performed By: #### A DIFF, ANEU, BMP, CBC, GFR #### [address] [address] RBC 4.72 10 6/mcL Normal 4.50-6.00 [facility] Comment on above: Performed By: #### A DIFF, ANEU, BMP, CBC, GFR #### [place] [id number] WBC 4.2 10 3/mcL Low 4.5-10.8 [facility] Comment on above: Performed By: #### A DIFF, ANEU, BMP, CBC, GFR #### [address] [address] CMPon 10-03-2024 Albumin Level 3.3 G/dL Normal 3.2-4.8 [facility] Comment on above: Performed By: #### A DIFF, ANEU, BMP, CBC, GFR #### [place] [address] Albumin/Globulin [Mass ratio] 1.0 {ratio} Normal 0.9-1.6 [facility] Comment on above: Performed By: #### A DIFF, ANEU, BMP, CBC, GFR #### [place] [address] ALP [Catalytic activity/Vol] 56 U/L Normal 38-126 [facility] Comment on above: Performed By: #### A DIFF, ANEU, BMP, CBC, GFR #### [place] [address] ALT [Catalytic activity/Vol] 10 U/L Low 12-55 [facility] Comment on above: Performed By: #### A DIFF, ANEU, BMP, CBC, GFR #### [address] [address] AST [Catalytic activity/Vol] 16 U/L Normal 8-34 [facility] Comment on above: Performed By: #### A DIFF, ANEU, BMP, CBC, GFR #### [place] [address] Bili Total 0.60 mg/dL Normal 0.20-1.20 [facility] Comment on above: Result Comment: Use of this assay is not recommended for patients undergoing treatment with eltrombopag due to the potential for falsely elevated results. Performed By: #### A DIFF, ANEU, BMP, CBC, GFR #### [address] [address] BUN/Creatinine Ratio 9.6 ratio Low 10.0-22.0 [facility] Comment on above: Performed By: #### A DIFF, ANEU, BMP, CBC, GFR #### [address] [address] Calcium [Mass/Vol] 8.4 mg/dL Low 8.7-10.4 [facility] Comment on above: Performed By: #### A DIFF, ANEU, BMP, CBC, GFR #### [place] [address] Chloride [Moles/Vol] 105 mmol/L Normal 98-110 [facility] Comment on above: Performed By: #### A DIFF, ANEU, BMP, CBC, GFR #### [place] [address] CO2 [Moles/Vol] 31 mmol/L Normal 22-32 [facility] Comment on above: Performed By: #### A DIFF, ANEU, BMP, CBC, GFR #### [place] [id number] Creatinine [Mass/Vol] 0.73 mg/dL Normal 0.60-1.40 [facility] Comment on above: Result Comment: Test ing performed on EcoScraps analyzer using enzymatic creatinine methodology. Performed By: #### A DIFF, ANEU, BMP, CBC, GFR #### [address] [address] Electrolyte Balance 1.0 mEq/L Low 4.0-15.0 [facility] Comment on above: Performed By: #### A DIFF, ANEU, BMP, CBC, GFR #### [address] [address] Globulin 3.2 G/dL Normal 2.5-4.2 [facility] Comment on above: Performed By: #### A DIFF, ANEU, BMP, CBC, GFR #### [address] [place], [place] [address] Glucose [Mass/Vol] 109 mg/dL Normal 70-110 [facility] Comment on above: Performed By: #### A DIFF, ANEU, BMP, CBC, GFR #### [address] [address] Potassium [Moles/Vol] 3.5 mmol/L Normal 3.5-5.0 [facility] Comment on above: Performed By: #### A DIFF, ANEU, BMP, CBC, GFR #### [address] [address] Sodium [Moles/Vol] 137 mmol/L Normal 136-145 [facility] Comment on above: Performed By: #### A DIFF, ANEU, BMP, CBC, GFR #### [address] [address] Total Protein 6.5 G/dL Normal 5.7-8.2 [facility] Comment on above: Performed By: #### A DIFF, ANEU, BMP, CBC, GFR #### [address] [address] Urea nitrogen [Mass/Vol] 7.0 mg/dL Low 8.0-22.0 [facility] Comment on above: Performed By: #### A DIFF, ANEU, BMP, CBC, GFR #### [address] [address] LABORATORYOrdered By: Jorge Wahl on 10-03-2024 Blood Glucose Testing Reason Routine (10/03/24 4:57 PM) [facility] Glucose [Mass/Vol] 81 mg/dL Normal 70 - 110 mg/dL [facility] LABORATORYOrdered By: Sophie Simental on 10-03-2024 Blood Glucose Testing Reason Routine (10/03/24 11:18 AM) [facility] Glucose [Mass/Vol] 99 mg/dL Normal 70 - 110 mg/dL [facility] LABORATORYOrdered By: SYSTEM SYSTEM on 10-03-2024 [...] above: Interpretive Data: T esting performed on EcoScra[employer] analyzer using enzymatic creatinine methodology. Electrolyte Balance [...] 70 - 110 mg/dL [facility] Glucose [Mass/Vol] 114 mg/dL Invalid Interpretation Code [facility] Comment on above: Interpretive Data: E stimated average glucose (eAG) is a calculated value from Hemoglobin A1C and is promotions representative of the average blood glucose level [...] 10-03-2024 Cholesterol [Mass/Vol] 105 mg/dL Normal 50-199 [facility] Comment on above: Result Comment: Chol esterol Reference Interval: Less than 200 Desirable 200-239 Borderline high risk 240 and above High risk Performed By: #### C BC, MG, GFR, ADIFF, BMP, ANEU #### [place] [address] Cholesterol in HDL [Mass/Vol] 17 mg/dL Low 40-59 [facility] Comment on above: Performed By: #### C BC, MG, GFR, ADIFF, BMP, ANEU #### [place] [address] Cholesterol in LDL [Mass/Vol] 58 mg/dL Normal 0-129 [facility] Comment on above: Performed By: #### C BC, MG, GFR, ADIFF, BMP, ANEU #### [place] [address] Triglyceride [Mass/Vol] 151 mg/dL High 3-149 [facility] Comment on above: Performed By: #### C BC, MG, GFR, ADIFF, BMP, ANEU #### [place] [address] MGon 10-03-2024 Magnesium [Mass/Vol] 2.1 mg/dL Normal 1.6-2.4 [facility] Comment on above: Performed By: #### A DIFF, ANEU, BMP, CBC, GFR #### [address] [address] .Auto Diffon 10-02-2024 Basophil, Absolute 0.0 10 3/mcL Normal 0.0-0.3 [facility] Comment on above: Performed By: #### C BC, MG, GFR, ADIFF, BMP, ANEU #### [address] [address] Basophils/100 WBC (Bld) 0.6 % Normal 0.0-2.5 [facility] Comment on above: Performed By: #### C BC, MG, GFR, ADIFF, BMP, ANEU #### [place] [address] Eosinophil, Absolute 0.1 10 3/mcL Normal 0.0-0.7 [facility] Comment on above: Performed By: #### C BC, MG, GFR, ADIFF, BMP, ANEU #### [address] [address] Eosinophils/100 WBC (Bld) 1.0 % Normal 0.0-6.0 [facility] Comment on above: Performed By: #### C BC, MG, GFR, ADIFF, BMP, ANEU #### [address] [address] Lymphocyte, Absolute 1.2 10 3/mcL Normal 0.9-4.3 [facility] Comment on above: Performed By: #### C BC, MG, GFR, ADIFF, BMP, ANEU #### [address] [address] Lymphocytes/100 WBC (Bld) 18.1 % Low 20.0-40.0 [facility] Comment on above: Performed By: #### C BC, MG, GFR, ADIFF, BMP, ANEU #### [address] [address] Monocyte, Absolute 0.7 10 3/mcL Normal 0.1-1.4 [facility] Comment on above: Performed By: #### C BC, MG, GFR, ADIFF, BMP, ANEU #### [address] [address] Monocytes/100 WBC (Bld) 10.0 % Normal 2.0-13.0 [facility] Comment on above: Performed By: #### C BC, MG, GFR, ADIFF, BMP, ANEU #### [address] [address] Neutrophils/100 WBC (Bld) 70.3 % Normal 50.0-75.0 [facility] Comment on above: Performed By: #### C BC, MG, GFR, ADIFF, BMP, ANEU #### [address] [address] Basophil, Absolute 0.1 10 3/mcL Normal 0.0-0.3 [facility] Comment on above: Performed By: #### A ERIC, MDW, BMP, MG, GFR, ADIFF, DIMER, CBC, PBNP, TROPHS #### [address] [place] [address] Basophils/100 WBC (Bld) 0.8 % Normal 0.0-2.[address] [facility] Comment on above: Performed By: #### A ELY REYES, BMP, MG, GFR, ADIFF, DIMER, CBC, PBNP, TROPHS #### [address] [address] Eosinophil, Absolute 0.1 10 3/mcL Normal 0.0-0.7 [facility] Comment on above: Performed By: #### A ELY REYES, BMP, MG, GFR, ADIFF, DIMER, CBC, PBNP, TROPHS #### [address] [address] Eosinophils/100 WBC (Bld) 1.2 % Normal 0.0-6.0 [facility] Comment on above: Performed By: #### A ELY REYES, BMP, MG, GFR, ADIFF, DIMER, CBC, PBNP, TROPHS #### [address] [address] Lymphocyte, Absolute 1.4 10 3/mcL Normal 0.9-4.3 [facility] Comment on above: Performed By: #### A ELY REYES, BMP, MG, GFR, ADIFF, DIMER, CBC, PBNP, TROPHS #### [address] [address] Lymphocytes/100 WBC (Bld) 13.3 % Low 20.0-40.0 [facility] Comment on above: Performed By: #### A ELY REYES, BMP, MG, GFR, ADIFF, DIMER, CBC, PBNP, TROPHS #### [address] [address] Monocyte, Absolute 0.8 10 3/mcL Normal 0.1-1.4 [facility] Comment on above: Performed By: #### A ELY REYES, BMP, MG, GFR, ADIFF, DIMER, CBC, PBNP, TROPHS #### [address] [address] Monocytes/100 WBC (Bld) 7.6 % Normal 2.0-13.0 [facility] Comment on above: Performed By: #### A MD ERICW, BMP, MG, GFR, ADIFF, DIMER, CBC, PBNP, TROPHS #### [facility] [address] [place], [place] [address] Neutrophils/100 WBC (Bld) 77.1 % High 50.0-75.0 [facility] Comment on above: Performed By: #### A MD ERICW, BMP, MG, GFR, ADIFF, DIMER, CBC, PBNP, TROPHS #### [place] [id number] [place], [place] [address] .GFRon 10-02-2024 Estimated Glomerular Filtration Rate 110 ml/min/1.73sqm [facility] Comment on above: Result Comment: Stages [...] A DIFF, ANEU, BMP, CBC, GFR #### [facility] [address] [place] [address] Estimated Glomerular Filtration Rate 104 ml/min/1.73sqm Normal [facility] Comment on above: Result Comment: Stages [...] GFR, ADIFF, DIMER, CBC, PBNP, TROPHS #### [address] [address] .MDWon 10-02-2024 Monocyte Distribution Width 19.51 Normal 0.00-20.00 [facility] Comment on above: Result Comment: For ED adult patients suspected of sepsis, MDW<=20.0 does not rule out sepsis or risk of sepsis Performed By: #### A ERIC, MDW, BMP, MG, GFR, ADIFF, DIMER, CBC, PBNP, TROPHS #### [address] [address] .NEUABSon 10-02-2024 Neutrophil, Absolute 4.7 10 3/mcL Normal 2.3-8.1 [facility] Comment on above: Performed By: #### C BC, MG, GFR, ADIFF, BMP, ANEU #### [address] [address] Neutrophil, Absolute 8.4 10 3/mcL High 2.3-8.1 [facility] Comment on above: Performed By: #### A ERIC, MDW, BMP, MG, GFR, ADIFF, DIMER, CBC, PBNP, TROPHS #### [address] [address] APTTon 10-02-2024 aPTT Coag (Bld) [Time] 36.5 s High 25.0-35.0 [facility] Comment on above: Result Comment: For Heparin anticoagulation therapy, the recommended therapeutic range is: 54-77 seconds (APTT Correlation with Anti-Xa therapeutic range of 0.3-0.7 units/ml). PLEASE REFERENCE THE PHARMACY PROTOCOL FOR DOSING. Performed By: #### A DIFF, ANEU, BMP, CBC, GFR #### [address] [address] aPTT Coag (Bld) [Time] 29.3 s Normal 25.0-35.0 [facility] Comment on above: Result Comment: For Heparin anticoagulation therapy, the recommended therapeutic range is: 54-77 seconds (APTT Correlation with Anti-Xa therapeutic range of 0.3-0.7 units/ml). PLEASE REFERENCE THE PHARMACY PROTOCOL FOR DOSING. Performed By: #### C BC, MG, GFR, ADIFF, BMP, ANEU #### [place] [id number] [place] [address] BUN/Creatinine Ratio 14 ratio Normal 7-27 [facility] Comment on above: Performed By: #### A ELY REYES, BMP, MG, GFR, ADIFF, DIMER, CBC, PBNP, TROPHS #### [address] [address] Calcium [Mass/Vol] 8.9 mg/dL Normal 8.4-10.2 [facility] Comment on above: Performed By: #### A ELY REYES, BMP, MG, GFR, ADIFF, DIMER, CBC, PBNP, TROPHS #### [address] [address] Chloride [Moles/Vol] 101 mmol/L Normal 98-107 [facility] Comment on above: Performed By: #### A ELY REYES, BMP, MG, GFR, ADIFF, DIMER, CBC, PBNP, TROPHS #### [address] [address] CO2 [Moles/Vol] 31 mmol/L High 22-29 [facility] Comment on above: Performed By: #### A ELY REYES, BMP, MG, GFR, ADIFF, DIMER, CBC, PBNP, TROPHS #### [address] [address] Creatinine [Mass/Vol] 0.85 mg/dL Normal 0.67-1.17 [facility] Comment on above: Performed By: #### A ELY REYES, BMP, MG, GFR, ADIFF, DIMER, CBC, PBNP, TROPHS #### [address] [address] Electrolyte Balance 6.0 mEq/L Normal 4.0-15.0 [facility] Comment on above: Performed By: #### A ELY REYES, BMP, MG, GFR, ADIFF, DIMER, CBC, PBNP, TROPHS #### [address] [address] Glucose [Mass/Vol] 157 mg/dL High 70-105 [facility] Comment on above: Performed By: #### A ELY REYES, BMP, MG, GFR, ADIFF, DIMER, CBC, PBNP, TROPHS #### [address] [address] Potassium [Moles/Vol] 3.1 mmol/L Low 3.5-5.1 [facility] Comment on above: Performed By: #### A ELY REYES, BMP, MG, GFR, ADIFF, DIMER, CBC, PBNP, TROPHS #### [address] [address] Sodium [Moles/Vol] 138 mmol/L Normal 136-145 [facility] Comment on above: Performed By: #### A ELY REYES, JULIÁN, MG, GFR, ADIFF, DIMER, CBC, PBNP, TROPHS #### [address] [address] Urea nitrogen [Mass/Vol] 12 mg/dL Normal 7-18 [facility] Comment on above: Performed By: #### A ELY REYES, BMP, MG, GFR, ADIFF, DIMER, CBC, PBNP, TROPHS #### [address] [address] CAIONon 10-02-2024 Calcium Ionized 1.09 mmol/L Low 1.12-1.32 [facility] Comment on above: Performed By: #### C BC, MG, GFR, ADIFF, BMP, ANEU #### [facility] [address] [place] [address] CBCon 10-02-2024 Erythrocyte distribution width (RBC) [Ratio] 16.6 % High 11.5-15.5 [facility] Comment on above: Performed By: #### C BC, MG, GFR, ADIFF, BMP, ANEU #### [place] [address] Hematocrit (Bld) [Volume fraction] 47.4 % Normal 40.0-52.0 [facility] Comment on above: Performed By: #### C BC, MG, GFR, ADIFF, BMP, ANEU #### [place] [address] Hgb 15.6 G/dL Normal 13.0-17.5 [facility] Comment on above: Performed By: #### C BC, MG, GFR, ADIFF, BMP, ANEU #### [place] [address] MCH (RBC) [Entitic mass] 28.7 pg Normal 27.0-33.0 [facility] Comment on above: Performed By: #### C BC, MG, GFR, ADIFF, BMP, ANEU #### [place] [address] MCHC 32.9 G/dL Normal 32.0-36.0 [facility] Comment on above: Performed By: #### C BC, MG, GFR, ADIFF, BMP, ANEU #### [place] [address] MCV (RBC) [Entitic vol] 87.2 fL Normal 81.0-100.0 [facility] Comment on above: Performed By: #### C BC, MG, GFR, ADIFF, BMP, ANEU #### [place] [address] Platelet 139 10 3/mcL Low 150-450 [facility] Comment on above: Performed By: #### C BC, MG, GFR, ADIFF, BMP, ANEU #### [place] [address] Platelet mean volume (Bld) [Entitic vol] 7.7 fL Normal 6.4-10.5 [facility] Comment on above: Performed By: #### C BC, MG, GFR, ADIFF, BMP, ANEU #### [address] [address] RBC 5.44 10 6/mcL Normal 4.50-6.00 [facility] Comment on above: Performed By: #### C BC, MG, GFR, ADIFF, BMP, ANEU #### [address] [address] WBC 6.6 10 3/mcL Normal 4.5-10.8 [facility] Comment on above: Performed By: #### C BC, MG, GFR, ADIFF, BMP, ANEU #### [address] [address] Erythrocyte distribution width (RBC) [Ratio] 16.6 % High 11.5-15.5 [facility] Comment on above: Performed By: #### A ELY REYES, BMP, MG, GFR, ADIFF, DIMER, CBC, PBNP, TROPHS #### [address] [address] Hematocrit (Bld) [Volume fraction] 51.4 % Normal 40.0-52.0 [facility] Comment on above: Performed By: #### A ELY REYES, JULIÁN, MG, GFR, ADIFF, DIMER, CBC, PBNP, TROPHS #### [address] [address] Hgb 17.1 G/dL Normal 13.0-17.5 [facility] Comment on above: Performed By: #### A ELY REYES, JULIÁN, MG, GFR, ADIFF, DIMER, CBC, PBNP, TROPHS #### [address] [address] MCH (RBC) [Entitic mass] 28.9 pg Normal 27.0-33.0 [facility] Comment on above: Performed By: #### A ELY REEYS, JULIÁN, MG, GFR, ADIFF, DIMER, CBC, PBNP, TROPHS #### [address] [address] MCHC 33.3 G/dL Normal 32.0-36.0 [facility] Comment on above: Performed By: #### A ERIC MDW, BMP, MG, GFR, ADIFF, DIMER, CBC, PBNP, TROPHS #### [address] [address] MCV (RBC) [Entitic vol] 86.7 fL Normal 81.0-100.[address] [facility] Comment on above: Performed By: #### A ERICMDW, BMP, MG, GFR, ADIFF, DIMER, CBC, PBNP, TROPHS #### [address] [address] Platelet 199 10 3/mcL Normal 150-450 [facility] Comment on above: Performed By: #### A ERICMDW, BMP, MG, GFR, ADIFF, DIMER, CBC, PBNP, TROPHS #### [address] [address] Platelet mean volume (Bld) [Entitic vol] 7.3 fL Normal 6.4-10.5 [facility] Comment on above: Performed By: #### A ERIC MDW, BMP, MG, GFR, ADIFF, DIMER, CBC, PBNP, TROPHS #### [address] [address] RBC 5.93 10 6/mcL Normal 4.50-6.00 [facility] Comment on above: Performed By: #### A ERIC MDW, BMP, MG, GFR, ADIFF, DIMER, CBC, PBNP, TROPHS #### [address] [address] WBC 10.9 10 3/mcL High 4.5-10.8 [facility] Comment on above: Performed By: #### A ERIC MDW, BMP, MG, GFR, ADIFF, DIMER, CBC, PBNP, TROPHS #### [address] [address] CMPon 10-02-2024 Albumin Level 3.2 G/dL Normal 3.2-4.8 [facility] Comment on above: Performed By: #### A DIFF, ANEU, BMP, CBC, GFR #### [address] [address] Albumin/Globulin [Mass ratio] 0.9 {ratio} Normal 0.9-1.6 [facility] Comment on above: Performed By: #### A DIFF, ANEU, BMP, CBC, GFR #### [address] [address] ALP [Catalytic activity/Vol] 60 U/L Normal 38-126 [facility] Comment on above: Performed By: #### A DIFF, ANEU, BMP, CBC, GFR #### [place] [id number] ALT/SGPT <8 Low 12-55 [facility] Comment on above: Performed By: #### A DIFF, ANEU, BMP, CBC, GFR #### [place] [id number] AST [Catalytic activity/Vol] 15 U/L Normal 8-34 [facility] Comment on above: Performed By: #### A DIFF, ANEU, BMP, CBC, GFR #### [place] [id number] Bili Total 0.60 mg/dL Normal 0.20-1.20 [facility] Comment on above: Result Comment: Use of this assay is not recommended for patients undergoing treatment with eltrombopag due to the potential for falsely elevated results. Performed By: #### A DIFF, ANEU, BMP, CBC, GFR #### [place] [id number] BUN/Creatinine Ratio 15.5 ratio Normal 10.0-22.0 [facility] Comment on above: Performed By: #### A DIFF, ANEU, BMP, CBC, GFR #### [address] [address] Calcium [Mass/Vol] 8.4 mg/dL Low 8.7-10.4 [facility] Comment on above: Performed By: #### A DIFF, ANEU, BMP, CBC, GFR #### [place] [id number] Chloride [Moles/Vol] 102 mmol/L Normal 98-110 [facility] Comment on above: Performed By: #### A DIFF, ANEU, BMP, CBC, GFR #### [address] [address] CO2 [Moles/Vol] 25 mmol/L Normal 22-32 [facility] Comment on above: Performed By: #### A DIFF, ANEU, BMP, CBC, GFR #### [address] [address] Creatinine [Mass/Vol] 0.71 mg/dL Normal 0.60-1.40 [facility] Comment on above: Result Comment: Test ing performed on [employer] analyzer using enzymatic creatinine methodology. Performed By: #### A DIFF, ANEU, BMP, CBC, GFR #### [address] [address] Electrolyte Balance 12.0 mEq/L Normal 4.0-15.0 [facility] Comment on above: Performed By: #### A DIFF, ANEU, BMP, CBC, GFR #### [address] [address] Globulin 3.5 G/dL Normal 2.5-4.2 [facility] Comment on above: Performed By: #### A DIFF, ANEU, BMP, CBC, GFR #### [address] [address] Glucose [Mass/Vol] 109 mg/dL Normal 70-110 [facility] Comment on above: Performed By: #### A DIFF, ANEU, BMP, CBC, GFR #### [address] [address] Potassium [Moles/Vol] 3.5 mmol/L Normal 3.5-5.0 [facility] Comment on above: Performed By: #### A DIFF, ANEU, BMP, CBC, GFR #### [address] [address] Sodium [Moles/Vol] 139 mmol/L Normal 136-145 [facility] Comment on above: Performed By: #### A DIFF, ANEU, BMP, CBC, GFR #### [address] [address] Total Protein 6.7 G/dL Normal 5.7-8.2 [facility] Comment on above: Performed By: #### A DIFF, ANEU, BMP, CBC, GFR #### [address] [address] Urea nitrogen [Mass/Vol] 11.0 mg/dL Normal 8.0-22.0 [facility] Comment on above: Performed By: #### A DIFF, ANEU, BMP, CBC, GFR #### [address] [address] LABORATORYOrdered By: SYSTEM SYSTEM on 10-02-2024 aPTT [...] above: Interpretive Data: T esting performed on [employer] analyzer using enzymatic creatinine methodology. Electrolyte Balance [...] Comment on above: Interpretive Data: T he [employer] (CHEST, 1991, 102:312S-25S) [...] ng/L Male: 0-54 ng/L Testing performed on [employer] analyzer using direct chemiluminescent technology. TSH Qn [...] ng/L Normal 0 - 76 ng/L ADM Comment on above: Interpretive Data: H igh Sensitive Troponin I Reference Ranges: Female: 0-51 ng/L Male: 0-76 ng/L Testing performed on [employer] using a homogeneous sandwich chemiluminescent immunoassay based on LOCI technology. Basophils (Bld) [#/Vol] 0.1 103/mcL Normal [...] [facility] Comment on above: Interpretive Data: T he [employer] (CHEST, 1991, 102:312S-25S) [...] ng/L Male: 0-76 ng/L Testing performed on [employer] using a homogeneous sandwich chemiluminescent immunoassay based on Airphrame technology. Urea nitrogen [Mass/Vol] 12 mg/dL Normal [...] A DIFF, ANEU, BMP, CBC, GFR #### [facility] [address] [place] [address] Magnesium [Mass/Vol] 1.7 mg/dL Low 1.8-2.4 [facility] Comment on above: Performed By: #### A ERIC, MDW, BMP, MG, GFR, ADIFF, DIMER, CBC, PBNP, TROPHS #### [facility] [address] [place], [place] [address] PBNPon 10-02-2024 Natriuretic peptide B (Bld) [Mass/Vol] 2223 pg/mL High 0-900 [facility] Comment on above: Performed By: #### A DIFF, ANEU, BMP, CBC, GFR #### [facility] [address] [place] [address] Natriuretic peptide B (Bld) [Mass/Vol] 973 pg/mL High 0-125 [facility] Comment on above: Result Comment: NT-p roBNP results of less than 300 pg/mL effectively rules out acute congestive heart failure with 99% negative predictive value. Performed By: #### A ERICELY, BMP, MG, GFR, ADIFF, DIMER, CBC, PBNP, TROPHS #### [facility] [address] [place], [place] [address] PHOSon 10-02-2024 Phosphate [Mass/Vol] 2.2 mg/dL Low 2.4-5.1 [facility] Comment on above: Result Comment: No te - New Reference Range in effect 19 Performed By: #### A DIFF, ANEU, BMP, CBC, GFR #### [address] [address] PROon 10-02-2024 INR Coag (PPP) [Relative time] 1.2 {INR} Normal [facility] Comment on above: Result Comment: The [employer] (CHEST, 1992, 102:312S-25S) recommended therapeutic range for oral anticoagulant therapy is: LOW RISK: Prophylaxis of venous thrombosis INR: 2.0-3.0 Treatment of pulmonary embolism 2.0-3.0 Prevention of systemic embolism 2.0-3.0 HIGH RISK: Mechanical prosthetic valves 2.5-3.5 Performed By: #### C BC, MG, GFR, ADIFF, BMP, ANEU #### [address] [address] PT Coag (PPP) [Time] 13.4 s Normal 9.0-14.4 [facility] Comment on above: Result Comment: Effe ctive 12/11/07, Protime results may be affected by some antibiotics (i.e. Ciprofloxacin, Azithromycin, Bactrim) which may potentiate the action of oral anticoagulants, with further increases in Protime/INR. Performed By: #### C BC, MG, GFR, ADIFF, BMP, ANEU #### [address] [address] PT Coag (PPP) [Time] 13.5 s Normal 9.0-14.4 [facility] Comment on above: Performed By: #### A ELY REYES, BMP, MG, GFR, ADIFF, DIMER, CBC, PBNP, TROPHS #### [address] [address] PT International Ratio 1.2 Normal [facility] Comment on above: Result Comment: The [employer] (CHEST, 1992, 102:312S-25S) recommended therapeutic range for oral anticoagulant therapy is: LOW RISK: Prophylaxis of venous thrombosis INR: 2.0-3.0 Treatment of pulmonary embolism 2.0-3.0 Prevention of systemic embolism 2.0-3.0 HIGH RISK: Mechanical prosthetic valves 2.5-3.5 Performed By: #### A ELY REYES, JULIÁN, MG, GFR, ADIFF, DIMER, CBC, PBNP, TROPHS #### [address] [address] TROPHSon 10-02-2024 High Sensitivity Troponin I 6 ng/L Normal 0-54 [facility] Comment on above: Result Comment: High Sensitive Troponin I Reference Ranges: Female: 0-34 ng/L Male: 0-54 ng/L Testing performed on [employer] analyzer using direct chemiluminescent technology. Performed By: #### C BC, MG, GFR, ADIFF, BMP, ANEU #### [address] [address] High Sensitivity Troponin I 9 ng/L Normal 0-76 [facility] Comment on above: Result Comment: High Sensitive Troponin I Reference Ranges: Female: 0-51 ng/L Male: 0-76 ng/L Testing performed on [employer] using a homogeneous sandwich chemiluminescent immunoassay based on Air[employer] technology. Performed By: #### A ELY REYES, JULIÁN, MG, GFR, ADIFF, DIMER, CBC, PBNP, TROPHS #### [place] [id number] High Sensitivity Troponin I 9 ng/L Normal 0-76 [facility] Comment on above: Result Comment: High Sensitive Troponin I Reference Ranges: Female: 0-51 ng/L Male: 0-76 ng/L Testing performed on [employer] using a homogeneous sandwich chemiluminescent immunoassay based on Airph[employer] technology. Performed By: #### A ERIC, MDW, BMP, MG, GFR, ADIFF, DIMER, CBC, PBNP, TROPHS #### [facility] [address] [place], [place] [address] TSHon 10-02-2024 TSH 1.923 mIU/mL Normal 0.550-4.780 [facility] Comment on above: Performed By: #### A DIFF, ANEU, BMP, CBC, GFR #### [facility] [address] [place] [address] XR CHEST 1 VIEWon 10-02-2024 XR CHEST [...] 10/02/2024 2:02:33 AM Ordering Provider: DELORES MURO Normal [facility] XR ANKLE MINIMUM 3 VIEWS LEF [...] 08/29/2024 3:52:38 PM Ordering Provider: EDER FARFAN [facility] XR CHEST 2 VIEWSon XR CHEST [...] 08/29/2024 4:51:29 PM Ordering Provider: GIRMA CORREA [facility] .Auto Diffon 08-13-2024 Basophil, Absolute 0.0 10 3/mcL Normal 0.0-0.2 [facility] Comment on above: Performed By: #### A ELY REYES, BMP, MG, GFR, ADIFF, DIMER, CBC, PBNP, TROPHS #### [address] [address] Basophils/100 WBC (Bld) 0.7 % Normal 0.0-2.[address] [facility] Comment on above: Performed By: #### A ELY REYES, BMP, MG, GFR, ADIFF, DIMER, CBC, PBNP, TROPHS #### [address] [address] Eosinophil, Absolute 0.1 10 3/mcL Normal 0.0-0.7 [facility] Comment on above: Performed By: #### A ELY REYES, BMP, MG, GFR, ADIFF, DIMER, CBC, PBNP, TROPHS #### [address] [address] Eosinophils/100 WBC (Bld) 1.3 % Normal 0.0-7.0 [facility] Comment on above: Performed By: #### A ELY REYES, BMP, MG, GFR, ADIFF, DIMER, CBC, PBNP, TROPHS #### [address] [address] Lymphocyte, Absolute 0.8 10 3/mcL Low 0.9-4.3 [facility] Comment on above: Performed By: #### A ELY REYES, BMP, MG, GFR, ADIFF, DIMER, CBC, PBNP, TROPHS #### [address] [address] Lymphocytes/100 WBC (Bld) 19.9 % Low 20.0-40.0 [facility] Comment on above: Performed By: #### A ELY REYES, BMP, MG, GFR, ADIFF, DIMER, CBC, PBNP, TROPHS #### [address] [address] Monocyte, Absolute 0.3 10 3/mcL Normal 0.1-1.4 [facility] Comment on above: Performed By: #### A ELY REYES, BMP, MG, GFR, ADIFF, DIMER, CBC, PBNP, TROPHS #### [address] [address] Monocytes/100 WBC (Bld) 6.9 % Normal 2.0-13.[address] [facility] Comment on above: Performed By: #### A ELY REYES, BMP, MG, GFR, ADIFF, DIMER, CBC, PBNP, TROPHS #### [address] [address] Neutrophils/100 WBC (Bld) 71.2 % Normal 50.0-75.0 [facility] Comment on above: Performed By: #### A ELY REYES, BMP, MG, GFR, ADIFF, DIMER, CBC, PBNP, TROPHS #### [address] [address] .GFRon 08-13-2024 Estimated Glomerular Filtration Rate 107 ml/min/1.73sqm Normal [facility] Comment on above: Result Comment: Stages [...] GFR, ADIFF, DIMER, CBC, PBNP, TROPHS #### [address] [address] .MDWon 08-13-2024 Monocyte Distribution Width 19.39 Normal 0.00-20.00 [facility] Comment on above: Result Comment: For ED adult patients suspected of sepsis, MDW<=20.0 does not rule out sepsis or risk of sepsis Performed By: #### A ELY REYES, BMP, MG, GFR, ADIFF, DIMER, CBC, PBNP, TROPHS #### [address] [address] .NEUABSon 08-13-2024 Neutrophil, Absolute 2.9 10 3/mcL Normal 2.3-8.1 [facility] Comment on above: Performed By: #### A MD ERICW, BMP, MG, GFR, ADIFF, DIMER, CBC, PBNP, TROPHS #### [place] [address] CBCon 08-13-2024 Erythrocyte distribution width (RBC) [Ratio] 17.1 % High 11.5-15.5 [facility] Comment on above: Performed By: #### A ELY REYES, BMP, MG, GFR, ADIFF, DIMER, CBC, PBNP, TROPHS #### [place] [address] Hematocrit (Bld) [Volume fraction] 42.8 % Normal 40.0-52.0 [facility] Comment on above: Performed By: #### A ELY REYES, BMP, MG, GFR, ADIFF, DIMER, CBC, PBNP, TROPHS #### [place] [address] Hgb 14.0 G/dL Normal 13.0-17.5 [facility] Comment on above: Performed By: #### A MD ERICW, BMP, MG, GFR, ADIFF, DIMER, CBC, PBNP, TROPHS #### [place] [address] MCH (RBC) [Entitic mass] 27.9 pg Normal 27.0-33.0 [facility] Comment on above: Performed By: #### A MD ERICW, BMP, MG, GFR, ADIFF, DIMER, CBC, PBNP, TROPHS #### [place] [address] MCHC 32.8 G/dL Normal 32.0-36.0 [facility] Comment on above: Performed By: #### A ELY REYES, BMP, MG, GFR, ADIFF, DIMER, CBC, PBNP, TROPHS #### [address] [address] MCV (RBC) [Entitic vol] 84.9 fL Normal 81.0-100.[address] [facility] Comment on above: Performed By: #### A ELY REYES, BMP, MG, GFR, ADIFF, DIMER, CBC, PBNP, TROPHS #### [address] [address] Platelet 137 10 3/mcL Low 150-450 [facility] Comment on above: Performed By: #### A ELY REYES, BMP, MG, GFR, ADIFF, DIMER, CBC, PBNP, TROPHS #### [address] [address] Platelet mean volume (Bld) [Entitic vol] 6.7 fL Normal 6.4-10.5 [facility] Comment on above: Performed By: #### A ELY REYES, JULIÁN, MG, GFR, ADIFF, DIMER, CBC, PBNP, TROPHS #### [address] [address] RBC 5.04 10 6/mcL Normal 4.50-6.00 [facility] Comment on above: Performed By: #### A ELY REYES, BMP, MG, GFR, ADIFF, DIMER, CBC, PBNP, TROPHS #### [address] [address] WBC 4.1 10 3/mcL Low 4.5-10.8 [facility] Comment on above: Performed By: #### A ELY REYES, BMP, MG, GFR, ADIFF, DIMER, CBC, PBNP, TROPHS #### [address] [address] CMPon 08-13-2024 Albumin Level 3.3 G/dL Low 3.5-5.0 [facility] Comment on above: Performed By: #### A ELY REYES, BMP, MG, GFR, ADIFF, DIMER, CBC, PBNP, TROPHS #### [place] [address] Albumin/Globulin [Mass ratio] 0.8 {ratio} Low 1.1-2.5 [facility] Comment on above: Performed By: #### A ELY REYES, BMP, MG, GFR, ADIFF, DIMER, CBC, PBNP, TROPHS #### [place] [address] ALP [Catalytic activity/Vol] 76 U/L Normal 40-135 [facility] Comment on above: Performed By: #### A ELY REYES, BMP, MG, GFR, ADIFF, DIMER, CBC, PBNP, TROPHS #### [place] [address] ALT [Catalytic activity/Vol] 10 U/L Low 16-63 [facility] Comment on above: Performed By: #### A ELY REYES, BMP, MG, GFR, ADIFF, DIMER, CBC, PBNP, TROPHS #### [place] [address] AST [Catalytic activity/Vol] 14 U/L Normal 10-40 [facility] Comment on above: Performed By: #### A ELY REYES, BMP, MG, GFR, ADIFF, DIMER, CBC, PBNP, TROPHS #### [place] [id number] Bili Total 0.4 mg/dL Normal 0.2-1.0 [facility] Comment on above: Result Comment: Use of this assay is not recommended for patients undergoing treatment with eltrombopag due to the potential for falsely elevated results. Performed By: #### A ELY REYES, BMP, MG, GFR, ADIFF, DIMER, CBC, PBNP, TROPHS #### [place] [address] BUN/Creatinine Ratio 13 ratio Normal 7-27 [facility] Comment on above: Performed By: #### A ELY REYES, BMP, MG, GFR, ADIFF, DIMER, CBC, PBNP, TROPHS #### [address] [address] Calcium [Mass/Vol] 8.6 mg/dL Normal 8.4-10.2 [facility] Comment on above: Performed By: #### A ELY REYES, BMP, MG, GFR, ADIFF, DIMER, CBC, PBNP, TROPHS #### [address] [address] Chloride [Moles/Vol] 101 mmol/L Normal 98-107 [facility] Comment on above: Performed By: #### A ELY REYES, BMP, MG, GFR, ADIFF, DIMER, CBC, PBNP, TROPHS #### [address] [address] CO2 [Moles/Vol] 35 mmol/L High 22-29 [facility] Comment on above: Performed By: #### A ELY REYES, BMP, MG, GFR, ADIFF, DIMER, CBC, PBNP, TROPHS #### [address] [address] Creatinine [Mass/Vol] 0.78 mg/dL Normal 0.70-1.30 [facility] Comment on above: Result Comment: Test ing performed on Siemens Dimension EXL analyzer using a modified kinetic Ciera technique. Performed By: #### A ELY REYES, BMP, MG, GFR, ADIFF, DIMER, CBC, PBNP, TROPHS #### [address] [address] Electrolyte Balance 2.0 mEq/L Low 4.0-15.0 [facility] Comment on above: Performed By: #### A ELY REYES, BMP, MG, GFR, ADIFF, DIMER, CBC, PBNP, TROPHS #### [address] [address] Globulin 3.9 G/dL High 1.5-3.8 [facility] Comment on above: Performed By: #### A ELY REYES, BMP, MG, GFR, ADIFF, DIMER, CBC, PBNP, TROPHS #### [address] [address] Glucose [Mass/Vol] 105 mg/dL Normal 70-105 [facility] Comment on above: Performed By: #### A ELY REYES, BMP, MG, GFR, ADIFF, DIMER, CBC, PBNP, TROPHS #### [address] [address] Potassium [Moles/Vol] 3.8 mmol/L Normal 3.5-5.1 [facility] Comment on above: Performed By: #### A ELY REYES, BMP, MG, GFR, ADIFF, DIMER, CBC, PBNP, TROPHS #### [place] [address] Sodium [Moles/Vol] 138 mmol/L Normal 136-145 [facility] Comment on above: Performed By: #### A ELY REYES, BMP, MG, GFR, ADIFF, DIMER, CBC, PBNP, TROPHS #### [place] [address] Total Protein 7.2 G/dL Normal 6.4-8.2 [facility] Comment on above: Performed By: #### A ELY REYES, BMP, MG, GFR, ADIFF, DIMER, CBC, PBNP, TROPHS #### [place] [address] Urea nitrogen [Mass/Vol] 10 mg/dL Normal 7-18 [facility] Comment on above: Performed By: #### A ELY REYES, BMP, MG, GFR, ADIFF, DIMER, CBC, PBNP, TROPHS #### [place] [address] CVFLURVon 08-13-2024 FLU A PCR Negative Normal Negative [facility] Comment on above: Performed By: #### C VFLURV #### [place] [id number] FLU B PCR Negative Normal Negative [facility] Comment on above: Performed By: #### C VFLURV #### [place] [id number] [place], [place] [address] RSV PCR Negative Normal Negative [facility] Comment on above: Performed By: #### C VFLURV #### [place] [id number] [place], [place] [address] SARS-CoV-2 (COVID-19) RNA ROSE+probe Ql (Unsp spec) Negative Normal Negative [facility] Comment on above: Result Comment: Resu [...] results. Performed By: #### C VFLURV #### [address] [address] PBNPon 08-13-2024 Natriuretic peptide B (Bld) [Mass/Vol] 456 pg/mL High 0-125 [facility] Comment on above: Result Comment: NT-p roBNP results of less than 300 pg/mL effectively rules out acute congestive heart failure with 99% negative predictive value. Performed By: #### A ERIC, W, BMP, MG, GFR, ADIFF, DIMER, CBC, PBNP, TROPHS #### [address] [address] TROPHSon 08-13-2024 High Sensitivity Troponin I 8 ng/L Normal 0-76 [facility] Comment on above: Result Comment: High Sensitive Troponin I Reference Ranges: Female: 0-51 ng/L Male: 0-76 ng/L Testing performed on [employer] using a homogeneous sandwich chemiluminescent immunoassay based on Airphrame technology. Performed By: #### A ERIC, ELY, BMP, MG, GFR, ADIFF, DIMER, CBC, PBNP, TROPHS #### [address] [address] XR CHEST 1 VIEWon 08-13-2024 XR CHEST [...] 08/13/2024 11:55:14 AM Ordering Provider: WILNER JOE [facility] .GFRon 05-14-2024 GFR Non- 90 ml/min/1.73sqm [facility] Comment on above: Result Comment: GFR [...] GFR, ADIFF, DIMER, CBC, PBNP, TROPHS #### [address] [address] GFR 109 ml/min/1.73sqm Normal [facility] Comment on above: Result Comment: GFR [...] GFR, ADIFF, DIMER, CBC, PBNP, TROPHS #### [address] [address] A1Con 05-14-2024 Glucose [Mass/Vol] 120 mg/dL Normal [facility] Comment on above: Result Comment: Zahida mated Average Glucose calculated by equation ((28.7xA1C)-46.7) Estimated average glucose (eAG) is a calculated value from Hemoglobin A1C and is promotions representative of the average blood glucose level in the last 2-3 month period. Normal range: less than 114 mg/dL Performed By: #### A ELY REYES, JULIÁN, MG, GFR, ADIFF, DIMER, CBC, PBNP, TROPHS #### [address] [address] HbA1c (Bld) [Mass fraction] 5.8 % Normal 4.3-6.4 [facility] Comment on above: Performed By: #### A ELY REYES, BMP, MG, GFR, ADIFF, DIMER, CBC, PBNP, TROPHS #### [address] [address] CMPon 05-14-2024 Albumin Level 3.4 G/dL Low 3.5-5.0 [facility] Comment on above: Performed By: #### A ELY REYES, BMP, MG, GFR, ADIFF, DIMER, CBC, PBNP, TROPHS #### [address] [address] Albumin/Globulin [Mass ratio] 0.9 {ratio} Low 1.1-2.5 [facility] Comment on above: Performed By: #### A ELY REYES, BMP, MG, GFR, ADIFF, DIMER, CBC, PBNP, TROPHS #### [place] [address] ALP [Catalytic activity/Vol] 87 U/L Normal 40-135 [facility] Comment on above: Performed By: #### A ELY REYES, JULIÁN, MG, GFR, ADIFF, DIMER, CBC, PBNP, TROPHS #### [place] [id number] ALT [Catalytic activity/Vol] 17 U/L Normal 16-63 [facility] Comment on above: Performed By: #### A ELY REYES, JULIÁN, MG, GFR, ADIFF, DIMER, CBC, PBNP, TROPHS #### [address] [address] AST [Catalytic activity/Vol] 12 U/L Normal 10-40 [facility] Comment on above: Performed By: #### A ELY REYES, BMP, MG, GFR, ADIFF, DIMER, CBC, PBNP, TROPHS #### [address] [address] Bili Total 0.3 mg/dL Normal 0.2-1.0 [facility] Comment on above: Result Comment: Use of this assay is not recommended for patients undergoing treatment with eltrombopag due to the potential for falsely elevated results. Performed By: #### A ELY REYES, JULIÁN, MG, GFR, ADIFF, DIMER, CBC, PBNP, TROPHS #### [place] [address] BUN/Creatinine Ratio 15 ratio Normal 7-27 [facility] Comment on above: Performed By: #### A ELY REYES, BMP, MG, GFR, ADIFF, DIMER, CBC, PBNP, TROPHS #### [place] [address] Calcium [Mass/Vol] 8.9 mg/dL Normal 8.4-10.2 [facility] Comment on above: Performed By: #### A ELY REYES, BMP, MG, GFR, ADIFF, DIMER, CBC, PBNP, TROPHS #### [place] [address] Chloride [Moles/Vol] 101 mmol/L Normal 98-107 [facility] Comment on above: Performed By: #### A ELY REYES, BMP, MG, GFR, ADIFF, DIMER, CBC, PBNP, TROPHS #### [place] [address] CO2 [Moles/Vol] 34 mmol/L High 22-29 [facility] Comment on above: Performed By: #### A ELY REYES, BMP, MG, GFR, ADIFF, DIMER, CBC, PBNP, TROPHS #### [place] [address] Creatinine [Mass/Vol] 0.89 mg/dL Normal 0.70-1.30 [facility] Comment on above: Result Comment: Test ing performed on [employer] Dimension EXL analyzer using a modified kinetic Ciera technique. Performed By: #### A ELY REYES, BMP, MG, GFR, ADIFF, DIMER, CBC, PBNP, TROPHS #### [place] [address] Electrolyte Balance 5.0 mEq/L Normal 4.0-15.0 [facility] Comment on above: Performed By: #### A ELY REYES, BMP, MG, GFR, ADIFF, DIMER, CBC, PBNP, TROPHS #### [place] [address] Globulin 3.8 G/dL Normal [facility] Comment on above: Performed By: #### A ELY REYES, BMP, MG, GFR, ADIFF, DIMER, CBC, PBNP, TROPHS #### [address] [address] Glucose [Mass/Vol] 99 mg/dL Normal 70-105 [facility] Comment on above: Performed By: #### A ELY REYES, BMP, MG, GFR, ADIFF, DIMER, CBC, PBNP, TROPHS #### [address] [address] Potassium [Moles/Vol] 4.0 mmol/L Normal 3.5-5.1 [facility] Comment on above: Performed By: #### A ELY REYES, BMP, MG, GFR, ADIFF, DIMER, CBC, PBNP, TROPHS #### [address] [address] Sodium [Moles/Vol] 140 mmol/L Normal 136-145 [facility] Comment on above: Performed By: #### A ELY REYES, JULIÁN, MG, GFR, ADIFF, DIMER, CBC, PBNP, TROPHS #### [address] [address] Total Protein 7.2 G/dL Normal 6.4-8.2 [facility] Comment on above: Performed By: #### A ELY REYES, BMP, MG, GFR, ADIFF, DIMER, CBC, PBNP, TROPHS #### [address] [address] Urea nitrogen [Mass/Vol] 13 mg/dL Normal 7-18 [facility] Comment on above: Performed By: #### A ELY REYES, BMP, MG, GFR, ADIFF, DIMER, CBC, PBNP, TROPHS #### [address] [address] LABORATORYOrdered By: SYSTEM SYSTEM on 05-14-2024 Albumin [...] calculated value from Hemoglobin A1C and is promotions representative of the average blood glucose level [...] 05-14-2024 Cholesterol [Mass/Vol] 144 mg/dL Normal 0-200 [facility] Comment on above: Result Comment: Chol esterol Reference Interval: Less than 200 Desirable 200-239 Borderline high risk 240 and above High risk Performed By: #### A ELY REYES, BMP, MG, GFR, ADIFF, DIMER, CBC, PBNP, TROPHS #### [address] [address] Cholesterol in HDL [Mass/Vol] 24 mg/dL Low 40-60 [facility] Comment on above: Performed By: #### A ELY REYES, BMP, MG, GFR, ADIFF, DIMER, CBC, PBNP, TROPHS #### [address] [address] Cholesterol in LDL [Mass/Vol] 72 mg/dL Normal 0-130 [facility] Comment on above: Performed By: #### A ELY REYES, BMP, MG, GFR, ADIFF, DIMER, CBC, PBNP, TROPHS #### [address] [address] Triglyceride [Mass/Vol] 242 mg/dL High 0-[address] [facility] Comment on above: Result Comment: Trig lyceride Reference Interval: Less than 150 Normal 150-199 Borderline high risk 200-499 High risk 500 or higher Very high risk Performed By: #### A ELY REYES, BMP, MG, GFR, ADIFF, DIMER, CBC, PBNP, TROPHS #### [address] [address] Final Surgical Pathology Rep [facility] 03-27-2024 Final Surgical Pathology Report . Pathology Reports Accession: Collected Date/Time: Received Date/Time: Pathologist: [id number] 03/25/2024 15:47 EDT 03/26/2024 07:38 EDT BEAU WILBURN MD Final Surgical Pathology Report DIAGNOSIS: RIGHT ARM EXCISION: - GLOMANGIOMYOMA CLINICAL INFORMATION: SKIN LESION Procedure: EXCISION Preoperative diagnosis: SKIN LESION Postoperative diagnosis: SKIN LESION SPECIMEN: A RIGHT ARM GROSS DESCRIPTION: All parts labelled with patient name and [id number] Received in formalin labelled "right arm excision" Is a unoriented ellipse of skin measuring 1.5 x 0.4 and excised to depth of 1.2 cm. Excision margin inked black. Skin surface grossly unremarkable, located within the underlying soft tissue is a santillan firm well-circumscribed possible mass/lymph node measuring 0.6 x 0.6 x 0.6 cm. TS-2 Austin Somers, Pathologists' Shake Splitter (ASCP) Performed by [facility] SOMERS MICROSCOPIC DESCRIPTION: The microscopic examination is performed, except in the case of Gross Only. Electronically Signed by Pathology Report verified by [facility] BEAU WILBURN Sign out Date: 03/27/2024 16:10 Performing Lab: [facility], [address] [place] [address] Pathology Dept Disclaimer If ancillary studies were utilized, the following Laboratory Developed Test (LDT) disclaimer will apply: Under CLIA requirements, [facility] is qualified to perform high complexity testing. For all ancillary stains, positive and negative controls stain appropriately. Performance characteristics of immunohistochemical and chromogenic in-situ hybridization tests have been determined by [facility]. These tests are used for clinical purposes, They should not be regarded as investigational or for research. Normal [facility] US SOFT TISSUE MASS OF RT [...] lymph node or neoplastic. Interpreted by: Lucius Jean MD Preliminary Report By: Lucius Jean MD Electronically signed By Lucius Jean MD Dictated Date: 02/18/2024 11:07:20 AM Prelim Date: 02/18/2024 11:09:23 AM Sign Date: 02/18/2024 11:09:23 AM Ordering Provider: GIRMA CORREA Normal [facility] TSHon 02-15-2024 TSH Qn 1.65 m[IU]/L Normal 0.36-3.74 [facility] Comment on above: Performed By: #### A ELY REYES, JULIÁN, MG, GFR, ADIFF, DIMER, CBC, PBNP, TROPHS #### [address] [address] .GFRon 02-12-2024 GFR 95 ml/min/1.73sqm Normal [facility] Comment on above: Result Comment: GFR [...] GFR, ADIFF, DIMER, CBC, PBNP, TROPHS #### [address] [address] GFR Non- 78 ml/min/1.73sqm Normal [facility] Comment on above: Result Comment: GFR [...] GFR, ADIFF, DIMER, CBC, PBNP, TROPHS #### [address] [address] A1Con 02-12-2024 Glucose [Mass/Vol] 131 mg/dL Normal [facility] Comment on above: Result Comment: Zahida mated Average Glucose calculated by equation ((28.7xA1C)-46.7) Estimated average glucose (eAG) is a calculated value from Hemoglobin A1C and is promotions representative of the average blood glucose level in the last 2-3 month period. Normal range: less than 114 mg/dL Performed By: #### A ELY REYES, JULIÁN, MG, GFR, ADIFF, DIMER, CBC, PBNP, TROPHS #### [address] [address] HbA1c (Bld) [Mass fraction] 6.2 % Normal 4.3-6.4 [facility] Comment on above: Performed By: #### A ELY REYES, JULIÁN, MG, GFR, ADIFF, DIMER, CBC, PBNP, TROPHS #### [address] [address] CMPon 02-12-2024 Albumin Level 3.3 G/dL Low 3.5-5.0 [facility] Comment on above: Performed By: #### A ELY REYES, BMP, MG, GFR, ADIFF, DIMER, CBC, PBNP, TROPHS #### [place] [address] Albumin/Globulin [Mass ratio] 0.9 {ratio} Low 1.1-2.5 [facility] Comment on above: Performed By: #### A ELY REYES, BMP, MG, GFR, ADIFF, DIMER, CBC, PBNP, TROPHS #### [place] [address] ALP [Catalytic activity/Vol] 74 U/L Normal 40-135 [facility] Comment on above: Performed By: #### A ELY REYES, BMP, MG, GFR, ADIFF, DIMER, CBC, PBNP, TROPHS #### [place] [address] ALT [Catalytic activity/Vol] 20 U/L Normal 16-63 [facility] Comment on above: Performed By: #### A ELY REYES, BMP, MG, GFR, ADIFF, DIMER, CBC, PBNP, TROPHS #### [place] [address] AST [Catalytic activity/Vol] 13 U/L Normal 10-40 [facility] Comment on above: Performed By: #### A ELY REYES, BMP, MG, GFR, ADIFF, DIMER, CBC, PBNP, TROPHS #### [place] [address] Bili Total 0.5 mg/dL Normal 0.2-1.0 [facility] Comment on above: Result Comment: Use of this assay is not recommended for patients undergoing treatment with eltrombopag due to the potential for falsely elevated results. Performed By: #### A ELY REYES, BMP, MG, GFR, ADIFF, DIMER, CBC, PBNP, TROPHS #### [place] [address] BUN/Creatinine Ratio 6 ratio Low 7-27 [facility] Comment on above: Performed By: #### A ELY REYES, BMP, MG, GFR, ADIFF, DIMER, CBC, PBNP, TROPHS #### [address] [address] Calcium [Mass/Vol] 8.5 mg/dL Normal 8.4-10.2 [facility] Comment on above: Performed By: #### A ELY REYES, BMP, MG, GFR, ADIFF, DIMER, CBC, PBNP, TROPHS #### [address] [address] Chloride [Moles/Vol] 100 mmol/L Normal 98-107 [facility] Comment on above: Performed By: #### A ELY REYES, BMP, MG, GFR, ADIFF, DIMER, CBC, PBNP, TROPHS #### [address] [address] CO2 [Moles/Vol] 34 mmol/L High 22-29 [facility] Comment on above: Performed By: #### A ELY REYES, BMP, MG, GFR, ADIFF, DIMER, CBC, PBNP, TROPHS #### [address] [address] Creatinine [Mass/Vol] 1.00 mg/dL Normal 0.70-1.30 [facility] Comment on above: Result Comment: Test ing performed on Siemens Dimension EXL analyzer using a modified kinetic Ciera technique. Performed By: #### A ELY REYES, JULIÁN, MG, GFR, ADIFF, DIMER, CBC, PBNP, TROPHS #### [address] [address] Electrolyte Balance 4.0 mEq/L Normal 4.0-15.0 [facility] Comment on above: Performed By: #### A ELY REYES, BMP, MG, GFR, ADIFF, DIMER, CBC, PBNP, TROPHS #### [address] [address] Globulin 3.8 G/dL Normal [facility] Comment on above: Performed By: #### A ERIC, MDW, BMP, MG, GFR, ADIFF, DIMER, CBC, PBNP, TROPHS #### [address] [address] Glucose [Mass/Vol] 80 mg/dL Normal 70-105 [facility] Comment on above: Performed By: #### A ELY REYES, BMP, MG, GFR, ADIFF, DIMER, CBC, PBNP, TROPHS #### [address] [address] Potassium [Moles/Vol] 4.3 mmol/L Normal 3.5-5.1 [facility] Comment on above: Performed By: #### A ELY REYES, BMP, MG, GFR, ADIFF, DIMER, CBC, PBNP, TROPHS #### [address] [address] Sodium [Moles/Vol] 138 mmol/L Normal 136-145 [facility] Comment on above: Performed By: #### A ELY REYES, BMP, MG, GFR, ADIFF, DIMER, CBC, PBNP, TROPHS #### [address] [address] Total Protein 7.1 G/dL Normal 6.4-8.2 [facility] Comment on above: Performed By: #### A ELY REYES, BMP, MG, GFR, ADIFF, DIMER, CBC, PBNP, TROPHS #### [address] [address] Urea nitrogen [Mass/Vol] 6 mg/dL Low 7-18 [facility] Comment on above: Performed By: #### A ELY REYES, BMP, MG, GFR, ADIFF, DIMER, CBC, PBNP, TROPHS #### [address] [address] LABORATORYOrdered By: SYSTEM SYSTEM on 02-12-2024 Albumin [...] calculated value from Hemoglobin A1C and is promotions representative of the average blood glucose level [...] 02-12-2024 Cholesterol [Mass/Vol] 117 mg/dL Normal 0-200 [facility] Comment on above: Result Comment: Chol esterol Reference Interval: Less than 200 Desirable 200-239 Borderline high risk 240 and above High risk Performed By: #### A ELY REYES, BMP, MG, GFR, ADIFF, DIMER, CBC, PBNP, TROPHS #### [address] [address] Cholesterol in HDL [Mass/Vol] 25 mg/dL Low 40-60 [facility] Comment on above: Performed By: #### A ELY REYES, JULIÁN, MG, GFR, ADIFF, DIMER, CBC, PBNP, TROPHS #### [address] [address] Cholesterol in LDL [Mass/Vol] 53 mg/dL Normal 0-130 [facility] Comment on above: Performed By: #### A ELY REYES, JULIÁN, MG, GFR, ADIFF, DIMER, CBC, PBNP, TROPHS #### [address] [address] Triglyceride [Mass/Vol] 196 mg/dL High 0-[address] [facility] Comment on above: Result Comment: Trig lyceride Reference Interval: Less than 150 Normal 150-199 Borderline high risk 200-499 High risk 500 or higher Very high risk Performed By: #### A ELY REYES, BMP, MG, GFR, ADIFF, DIMER, CBC, PBNP, TROPHS #### [address] [address] PSAon 02-12-2024 Prostate Specific Antigen 0.25 ng/mL Normal 0.00-4.00 [facility] Comment on above: Performed By: #### A ERIC, MDW, BMP, MG, GFR, ADIFF, DIMER, CBC, PBNP, TROPHS #### [address] [address] .Auto Diffon 02-01-2024 Basophil, Absolute 0.1 10 3/mcL Normal 0.0-0.3 [facility] ([place]) Comment on above: Performed By: #### A DIFF, TROPHS, GFR, BMP, MDW, CBC, PBNP, ANEU #### [address] [address] Basophils/100 WBC (Bld) 0.8 % Normal 0.0-2.5 [facility] ([place]) Comment on above: Performed By: #### A DIFF, TROPHS, GFR, BMP, MDW, CBC, PBNP, ANEU #### [address] [address] Eosinophil, Absolute 0.1 10 3/mcL Normal 0.0-0.7 [facility] ([place]) Comment on above: Performed By: #### A DIFF, TROPHS, GFR, BMP, MDW, CBC, PBNP, ANEU #### [address] [address] Eosinophils/100 WBC (Bld) 1.2 % Normal 0.0-6.0 [facility] ([place]) Comment on above: Performed By: #### A DIFF, TROPHS, GFR, BMP, MDW, CBC, PBNP, ANEU #### [address] [address] Lymphocyte, Absolute 1.4 10 3/mcL Normal 0.9-4.3 [facility] ([place]) Comment on above: Performed By: #### A DIFF, TROPHS, GFR, BMP, MDW, CBC, PBNP, ANEU #### [address] [address] Lymphocytes/100 WBC (Bld) 19.9 % Low 20.0-40.0 [facility] ([place]) Comment on above: Performed By: #### A DIFF, TROPHS, GFR, BMP, MDW, CBC, PBNP, ANEU #### [address] [address] Monocyte, Absolute 0.7 10 3/mcL Normal 0.1-1.4 [facility] ([place]) Comment on above: Performed By: #### A DIFF, TROPHS, GFR, BMP, MDW, CBC, PBNP, ANEU #### [address] [address] Monocytes/100 WBC (Bld) 9.4 % Normal 2.0-13.0 [facility] ([place]) Comment on above: Performed By: #### A DIFF, TROPHS, GFR, BMP, MDW, CBC, PBNP, ANEU #### [address] [address] Neutrophils/100 WBC (Bld) 68.7 % Normal 50.0-75.0 [facility] ([place]) Comment on above: Performed By: #### A DIFF, TROPHS, GFR, BMP, MDW, CBC, PBNP, ANEU #### [address] [address] .GFRon 02-01-2024 GFR >60 Normal [facility] ([place]) Comment on above: Result Comment: GFR Population [...] GFR, BMP, MDW, CBC, PBNP, ANEU #### [address] [address] GFR Non- >60 Normal [facility] ([place]) Comment on above: Result Comment: GFR Population [...] GFR, BMP, MDW, CBC, PBNP, ANEU #### [address] [address] .NEUABSon 02-01-2024 Neutrophil, Absolute 4.8 10 3/mcL Normal 2.3-8.1 [facility] ([place]) Comment on above: Performed By: #### A DIFF, TROPHS, GFR, BMP, MDW, CBC, PBNP, ANEU #### [place] [id number] APTTon 02-01-2024 aPTT Coag (Bld) [Time] 47.1 s High 25.0-35.0 [facility] ([place]) Comment on above: Result Comment: For Heparin anticoagulation therapy, the recommended therapeutic range is: 54-77 seconds (APTT Correlation with Anti-Xa therapeutic range of 0.3-0.7 units/ml). PLEASE REFERENCE THE PHARMACY PROTOCOL FOR DOSING. Performed By: #### A DIFF, TROPHS, GFR, BMP, MDW, CBC, PBNP, ANEU #### [address] [address] aPTT Coag (Bld) [Time] 46.1 s High 25.0-35.0 [facility] ([place]) Comment on above: Result Comment: For Heparin anticoagulation therapy, the recommended therapeutic range is: 54-77 seconds (APTT Correlation with Anti-Xa therapeutic range of 0.3-0.7 units/ml). PLEASE REFERENCE THE PHARMACY PROTOCOL FOR DOSING. Performed By: #### A DIFF, TROPHS, GFR, BMP, MDW, CBC, PBNP, ANEU #### [address] [address] BMPon 02-01-2024 BUN/Creatinine Ratio 14.8 ratio Normal 10.0-22.0 [facility] ([place]) Comment on above: Performed By: #### A DIFF, TROPHS, GFR, BMP, MDW, CBC, PBNP, ANEU #### [address] [address] Calcium [Mass/Vol] 8.8 mg/dL Normal 8.7-10.4 [facility] ([place]) Comment on above: Performed By: #### A DIFF, TROPHS, GFR, BMP, MDW, CBC, PBNP, ANEU #### [address] [address] Chloride [Moles/Vol] 100 mmol/L Normal 98-110 [facility] ([place]) Comment on above: Performed By: #### A DIFF, TROPHS, GFR, BMP, MDW, CBC, PBNP, ANEU #### [address] [address] CO2 [Moles/Vol] 32 mmol/L Normal 22-32 [facility] ([place]) Comment on above: Performed By: #### A DIFF, TROPHS, GFR, BMP, MDW, CBC, PBNP, ANEU #### [address] [address] Creatinine [Mass/Vol] 1.15 mg/dL Normal 0.60-1.40 [facility] ([place]) Comment on above: Result Comment: Test ing performed on [employer] analyzer using enzymatic creatinine methodology. Performed By: #### A DIFF, TROPHS, GFR, BMP, MDW, CBC, PBNP, ANEU #### [address] [address] Electrolyte Balance 5.0 mEq/L Normal 4.0-15.0 [facility] ([place]) Comment on above: Performed By: #### A DIFF, TROPHS, GFR, BMP, MDW, CBC, PBNP, ANEU #### [address] [id number] Glucose [Mass/Vol] 124 mg/dL High 70-110 [facility] ([place]) Comment on above: Performed By: #### A DIFF, TROPHS, GFR, BMP, MDW, CBC, PBNP, ANEU #### [address] [address] Potassium [Moles/Vol] 3.4 mmol/L Low 3.5-5.0 [facility] ([place]) Comment on above: Performed By: #### A DIFF, TROPHS, GFR, BMP, MDW, CBC, PBNP, ANEU #### [address] [address] Sodium [Moles/Vol] 137 mmol/L Normal 136-145 [facility] ([place]) Comment on above: Performed By: #### A DIFF, TROPHS, GFR, BMP, MDW, CBC, PBNP, ANEU #### [address] [address] Urea nitrogen [Mass/Vol] 17.0 mg/dL Normal 8.0-22.0 [facility] ([place]) Comment on above: Performed By: #### A DIFF, TROPHS, GFR, BMP, MDW, CBC, PBNP, ANEU #### [address] [address] CBCon 02-01-2024 Erythrocyte distribution width (RBC) [Ratio] 16.2 % High 11.5-15.5 [facility] ([place]) Comment on above: Performed By: #### A DIFF, TROPHS, GFR, BMP, MDW, CBC, PBNP, ANEU #### [address] [address] Hematocrit (Bld) [Volume fraction] 40.5 % Normal 40.0-52.0 [facility] ([place]) Comment on above: Performed By: #### A DIFF, TROPHS, GFR, BMP, MDW, CBC, PBNP, ANEU #### [place] [address] Hgb 13.0 G/dL Normal 13.0-17.5 [facility] ([place]) Comment on above: Performed By: #### A DIFF, TROPHS, GFR, BMP, MDW, CBC, PBNP, ANEU #### [place] [address] MCH (RBC) [Entitic mass] 26.0 pg Low 27.0-33.0 [facility] ([place]) Comment on above: Performed By: #### A DIFF, TROPHS, GFR, BMP, MDW, CBC, PBNP, ANEU #### [place] [address] MCHC 32.2 G/dL Normal 32.0-36.0 [facility] ([place]) Comment on above: Performed By: #### A DIFF, TROPHS, GFR, BMP, MDW, CBC, PBNP, ANEU #### [place] [address] MCV (RBC) [Entitic vol] 80.6 fL Low 81.0-100.0 [facility] ([place]) Comment on above: Performed By: #### A DIFF, TROPHS, GFR, BMP, MDW, CBC, PBNP, ANEU #### [place] [address] Platelet 161 10 3/mcL Normal 150-450 [facility] ([place]) Comment on above: Performed By: #### A DIFF, TROPHS, GFR, BMP, MDW, CBC, PBNP, ANEU #### [place] [address] Platelet mean volume (Bld) [Entitic vol] 6.8 fL Normal 6.4-10.5 [facility] ([place]) Comment on above: Performed By: #### A DIFF, TROPHS, GFR, BMP, MDW, CBC, PBNP, ANEU #### [place] [id number] RBC 5.02 10 6/mcL Normal 4.50-6.00 [facility] ([place]) Comment on above: Performed By: #### A DIFF, TROPHS, GFR, BMP, MDW, CBC, PBNP, ANEU #### [facility] [address] [place], [place] [address] WBC 6.9 10 3/mcL Normal 4.5-10.8 [facility] ([place]) Comment on above: Performed By: #### A DIFF, TROPHS, GFR, BMP, MDW, CBC, PBNP, ANEU #### [facility] [address] [place], [place] [address] LABORATORYOrdered By: SYSTEM SYSTEM on 02-01-2024 aPTT [...] above: Interpretive Data: T esting performed on EcoScraps analyzer using enzymatic creatinine methodology. Electrolyte Balance [...] (S/P/Bld) [Vol rate/Area] ml/min/1.73sqm Invalid Interpretation Code [facility] Comment on above: Interpretive Data: GFR Population [...] 02-01-2024 Magnesium [Mass/Vol] 2.2 mg/dL Normal 1.6-2.4 [facility] ([place]) Comment on above: Performed By: #### A DIFF, TROPHS, GFR, BMP, MDW, CBC, PBNP, ANEU #### [address] [address] .Auto Diffon 01-31-2024 Basophil, Absolute 0.1 10 3/mcL Normal 0.0-0.3 [facility] ([place]) Comment on above: Performed By: #### A DIFF, TROPHS, GFR, BMP, MDW, CBC, PBNP, ANEU #### [address] [address] Basophils/100 WBC (Bld) 1.0 % Normal 0.0-2.5 [facility] ([place]) Comment on above: Performed By: #### A DIFF, TROPHS, GFR, BMP, MDW, CBC, PBNP, ANEU #### [address] [address] Eosinophil, Absolute 0.1 10 3/mcL Normal 0.0-0.7 [facility] ([place]) Comment on above: Performed By: #### A DIFF, TROPHS, GFR, BMP, MDW, CBC, PBNP, ANEU #### [address] [address] Eosinophils/100 WBC (Bld) 1.1 % Normal 0.0-6.0 [facility] ([place]) Comment on above: Performed By: #### A DIFF, TROPHS, GFR, BMP, MDW, CBC, PBNP, ANEU #### [address] [address] Lymphocyte, Absolute 3.0 10 3/mcL Normal 0.9-4.3 [facility] ([place]) Comment on above: Performed By: #### A DIFF, TROPHS, GFR, BMP, MDW, CBC, PBNP, ANEU #### [address] [address] Lymphocytes/100 WBC (Bld) 22.7 % Normal 20.0-40.0 [facility] ([place]) Comment on above: Performed By: #### A DIFF, TROPHS, GFR, BMP, MDW, CBC, PBNP, ANEU #### [address] [address] Monocyte, Absolute 1.4 10 3/mcL Normal 0.1-1.4 [facility] ([place]) Comment on above: Performed By: #### A DIFF, TROPHS, GFR, BMP, MDW, CBC, PBNP, ANEU #### [address] [address] Monocytes/100 WBC (Bld) 11.0 % Normal 2.0-13.0 [facility] ([place]) Comment on above: Performed By: #### A DIFF, TROPHS, GFR, BMP, MDW, CBC, PBNP, ANEU #### [address] [address] Neutrophils/100 WBC (Bld) 64.2 % Normal 50.0-75.0 [facility] ([place]) Comment on above: Performed By: #### A DIFF, TROPHS, GFR, BMP, MDW, CBC, PBNP, ANEU #### [address] [address] .GFRon 01-31-2024 GFR 46 ml/min/1.73sqm Normal [facility] ([place]) Comment on above: Result Comment: GFR Population [...] GFR, BMP, MDW, CBC, PBNP, ANEU #### [address] [address] GFR Non- 38 ml/min/1.73sqm Normal [facility] ([place]) Comment on above: Result Comment: GFR Population [...] GFR, BMP, MDW, CBC, PBNP, ANEU #### [address] [address] .NEUABSon 01-31-2024 Neutrophil, Absolute 8.5 10 3/mcL High 2.3-8.1 [facility] ([place]) Comment on above: Performed By: #### A DIFF, TROPHS, GFR, BMP, MDW, CBC, PBNP, ANEU #### [address] [address] APTTon 01-31-2024 aPTT Coag (Bld) [Time] 34.5 s Normal 25.0-35.0 [facility] ([place]) Comment on above: Result Comment: For Heparin anticoagulation therapy, the recommended therapeutic range is: 54-77 seconds (APTT Correlation with Anti-Xa therapeutic range of 0.3-0.7 units/ml). PLEASE REFERENCE THE PHARMACY PROTOCOL FOR DOSING. Performed By: #### A DIFF, TROPHS, GFR, BMP, MDW, CBC, PBNP, ANEU #### [address] [address] aPTT Coag (Bld) [Time] 33.9 s Normal 25.0-35.0 [facility] ([place]) Comment on above: Result Comment: For Heparin anticoagulation therapy, the recommended therapeutic range is: 54-77 seconds (APTT Correlation with Anti-Xa therapeutic range of 0.3-0.7 units/ml). PLEASE REFERENCE THE PHARMACY PROTOCOL FOR DOSING. Performed By: #### A DIFF, TROPHS, GFR, BMP, MDW, CBC, PBNP, ANEU #### [address] [address] aPTT Coag (Bld) [Time] 26.2 s Normal 25.0-35.0 [facility] ([place]) Comment on above: Result Comment: For Heparin anticoagulation therapy, the recommended therapeutic range is: 54-77 seconds (APTT Correlation with Anti-Xa therapeutic range of 0.3-0.7 units/ml). PLEASE REFERENCE THE PHARMACY PROTOCOL FOR DOSING. Performed By: #### A DIFF, TROPHS, GFR, BMP, MDW, CBC, PBNP, ANEU #### [address] [address] CAIONon 01-31-2024 Calcium Ionized 1.07 mmol/L Low 1.12-1.32 [facility] ([place]) Comment on above: Performed By: #### T ROPHS, CMP, CAION, LAC, CBC, ADIFF, GFR, PHOS, MG, ANEU #### [address] [address] CBCon 01-31-2024 Erythrocyte distribution width (RBC) [Ratio] 16.3 % High 11.5-15.5 [facility] ([place]) Comment on above: Performed By: #### A DIFF, TROPHS, GFR, BMP, MDW, CBC, PBNP, ANEU #### [address] [address] Hematocrit (Bld) [Volume fraction] 42.8 % Normal 40.0-52.0 [facility] ([place]) Comment on above: Performed By: #### A DIFF, TROPHS, GFR, BMP, MDW, CBC, PBNP, ANEU #### [address] [address] Hgb 14.0 G/dL Normal 13.0-17.5 [facility] ([place]) Comment on above: Performed By: #### A DIFF, TROPHS, GFR, BMP, MDW, CBC, PBNP, ANEU #### [address] [address] MCH (RBC) [Entitic mass] 25.9 pg Low 27.0-33.0 [facility] ([place]) Comment on above: Performed By: #### A DIFF, TROPHS, GFR, BMP, MDW, CBC, PBNP, ANEU #### [place] [address] MCHC 32.6 G/dL Normal 32.0-36.0 [facility] ([place]) Comment on above: Performed By: #### A DIFF, TROPHS, GFR, BMP, MDW, CBC, PBNP, ANEU #### [address] [address] MCV (RBC) [Entitic vol] 79.5 fL Low 81.0-100.0 [facility] ([place]) Comment on above: Performed By: #### A DIFF, TROPHS, GFR, BMP, MDW, CBC, PBNP, ANEU #### [address] [address] Platelet 270 10 3/mcL Normal 150-450 [facility] ([place]) Comment on above: Performed By: #### A DIFF, TROPHS, GFR, BMP, MDW, CBC, PBNP, ANEU #### [address] [address] Platelet mean volume (Bld) [Entitic vol] 7.0 fL Normal 6.4-10.5 [facility] ([place]) Comment on above: Performed By: #### A DIFF, TROPHS, GFR, BMP, MDW, CBC, PBNP, ANEU #### [address] [address] RBC 5.39 10 6/mcL Normal 4.50-6.00 [facility] ([place]) Comment on above: Performed By: #### A DIFF, TROPHS, GFR, BMP, MDW, CBC, PBNP, ANEU #### [address] [address] WBC 13.2 10 3/mcL High 4.5-10.8 [facility] ([place]) Comment on above: Performed By: #### A DIFF, TROPHS, GFR, BMP, MDW, CBC, PBNP, ANEU #### [address] [address] CMPon 01-31-2024 Albumin Level 3.0 G/dL Low 3.2-4.8 [facility] ([place]) Comment on above: Performed By: #### A DIFF, TROPHS, GFR, BMP, MDW, CBC, PBNP, ANEU #### [address] [address] Albumin/Globulin [Mass ratio] 0.8 {ratio} Low 0.9-1.6 [facility] ([place]) Comment on above: Performed By: #### A DIFF, TROPHS, GFR, BMP, MDW, CBC, PBNP, ANEU #### [address] [address] ALP [Catalytic activity/Vol] 77 U/L Normal 38-126 [facility] ([place]) Comment on above: Performed By: #### A DIFF, TROPHS, GFR, BMP, MDW, CBC, PBNP, ANEU #### [address] [address] ALT/SGPT <8 Low 12-55 [facility] ([place]) Comment on above: Performed By: #### A DIFF, TROPHS, GFR, BMP, MDW, CBC, PBNP, ANEU #### [address] [address] AST [Catalytic activity/Vol] 12 U/L Normal 8-34 [facility] ([place]) Comment on above: Performed By: #### A DIFF, TROPHS, GFR, BMP, MDW, CBC, PBNP, ANEU #### [address] [address] Bili Total 0.40 mg/dL Normal 0.20-1.20 [facility] ([place]) Comment on above: Result Comment: Use of this assay is not recommended for patients undergoing treatment with eltrombopag due to the potential for falsely elevated results. Performed By: #### A DIFF, TROPHS, GFR, BMP, MDW, CBC, PBNP, ANEU #### [address] [address] BUN/Creatinine Ratio 11.2 ratio Normal 10.0-22.0 [facility] ([place]) Comment on above: Performed By: #### A DIFF, TROPHS, GFR, BMP, MDW, CBC, PBNP, ANEU #### [address] [address] Calcium [Mass/Vol] 8.8 mg/dL Normal 8.7-10.4 [facility] ([place]) Comment on above: Performed By: #### A DIFF, TROPHS, GFR, BMP, MDW, CBC, PBNP, ANEU #### [address] [address] Chloride [Moles/Vol] 100 mmol/L Normal 98-110 [facility] ([place]) Comment on above: Performed By: #### A DIFF, TROPHS, GFR, BMP, MDW, CBC, PBNP, ANEU #### [address] [address] CO2 [Moles/Vol] 29 mmol/L Normal 22-32 [facility] ([place]) Comment on above: Performed By: #### A DIFF, TROPHS, GFR, BMP, MDW, CBC, PBNP, ANEU #### [address] [address] Creatinine [Mass/Vol] 1.87 mg/dL High 0.60-1.40 [facility] ([place]) Comment on above: Result Comment: Test ing performed on EcoScraps analyzer using enzymatic creatinine methodology. Performed By: #### A DIFF, TROPHS, GFR, BMP, MDW, CBC, PBNP, ANEU #### [address] [address] Electrolyte Balance 8.0 mEq/L Normal 4.0-15.0 [facility] ([place]) Comment on above: Performed By: #### A DIFF, TROPHS, GFR, BMP, MDW, CBC, PBNP, ANEU #### [address] [address] Globulin 3.7 G/dL Normal 1.5-3.8 [facility] ([place]) Comment on above: Performed By: #### A DIFF, TROPHS, GFR, BMP, MDW, CBC, PBNP, ANEU #### [address] [address] Glucose [Mass/Vol] 133 mg/dL High 70-110 [facility] ([place]) Comment on above: Performed By: #### A DIFF, TROPHS, GFR, BMP, MDW, CBC, PBNP, ANEU #### [address] [address] Potassium [Moles/Vol] 3.6 mmol/L Normal 3.5-5.0 [facility] ([place]) Comment on above: Performed By: #### A DIFF, TROPHS, GFR, BMP, MDW, CBC, PBNP, ANEU #### [address] [address] Sodium [Moles/Vol] 137 mmol/L Normal 136-145 [facility] ([place]) Comment on above: Performed By: #### A DIFF, TROPHS, GFR, BMP, MDW, CBC, PBNP, ANEU #### [address] [address] Total Protein 6.7 G/dL Normal 5.7-8.2 [facility] ([place]) Comment on above: Result Comment: No te - New Reference Range in effect 19 Performed By: #### A DIFF, TROPHS, GFR, BMP, MDW, CBC, PBNP, ANEU #### [address] [address] Urea nitrogen [Mass/Vol] 21.0 mg/dL Normal 8.0-22.0 [facility] ([place]) Comment on above: Performed By: #### A DIFF, TROPHS, GFR, BMP, MDW, CBC, PBNP, ANEU #### [address] [address] CVFLURVon 01-31-2024 FLU A PCR Negative Normal Negative [facility] ([place]) Comment on above: Result Comment: [place] [id number] Performed By: #### A DIFF, TROPHS, GFR, BMP, MDW, CBC, PBNP, ANEU #### [place] [address] FLU B PCR Negative Normal Negative [facility] ([place]) Comment on above: Result Comment: [place] [id number] Performed By: #### A DIFF, TROPHS, GFR, BMP, MDW, CBC, PBNP, ANEU #### [place] [address] RSV PCR Negative Normal Negative [facility] ([place]) Comment on above: Result Comment: [place] s [id number] Performed By: #### A DIFF, TROPHS, GFR, BMP, MDW, CBC, PBNP, ANEU #### [place] [address] SARS-CoV-2 (COVID-19) RNA ROSE+probe Ql (Unsp spec) Negative Normal Negative [facility] ([place]) Comment on above: Result Comment: [place] [id number] This test has been authorized by FDA [...] BMP, MDW, CBC, PBNP, ANEU #### [place] [id number] LABORATORYOrdered By: SYSTEM SYSTEM on 01-31-2024 aPTT [...] 2.5 % AH Workflow SS Bilirubin [Mass/Vol] 0.40 mg/dL Normal [...] above: Interpretive Data: T esting performed on EcoScraps analyzer using enzymatic creatinine methodology. Electrolyte Balance [...] fL Normal 6.4 - 10.5 fL Workflow Platelets (Bld) [#/Vol] 270 103/mcL Normal 150 - 450 10^3/mcL Workflow SS Potassium [Moles/Vol] 3.6 mmol/L Normal 3.5 - 5.0 mEq/L ADM Protein [Mass/Vol] 6.7 G/dL Normal 5.7 - 8.2 G/dL ADM Comment on above: Interpretive Data: * *Note - New Reference Range in effect 19 PT Coag (PPP) [Time] 14.7 s High 9.0 - 1 4.4 seconds HemDEub Comment on above: Interpretive Data: E ffective 12/11/07, Protime results may be affected by some antibiotics (i.e. Ciprofloxacin, Azithromycin, Bactrim) which may potentiate the action of oral anticoagulants, with further increases in Protime/INR. PT International Ratio 1.3 ratio Invalid Interpretation Code HemDEub Comment on above: Interpretive Data: Baljinder linn [employer] (CHEST, 1991, 102:[id number]) [...] ng/L Male: 0-54 ng/L Testing performed on Cyan analyzer using direct chemiluminescent technology. Urea nitrogen [Mass/Vol] 21.0 mg/dL Normal 8.0 - 22.0 mg/dL ADM SS Urea nitrogen/Creatinine [Mass ratio] 11.2 ratio Normal 10.0 - 22.0 ratio ADM SS WBC (Bld) [#/Vol] 13.2 103/mcL High 4.5 - 10.8 10^3/mcL Workflow SS LABORATORYOrdered By: Yoanna Coleman on 01-31-2024 Blood Glucose Testing Reason Routine (01/31/24 7:30 AM) [facility] Glucose [Mass/Vol] 146 mg/dL High 70 - 110 mg/dL [facility] LABORATORYOrdered By: Jacqueline Ospina on 01-31-2024 FLUAV RNA ROSE+probe Ql (Resp) Negative 15 (01/31/24 4:30 AM) Normal Negative AH Auto Viro/Sero SS Comment on above: Result Comment: [place] [id number] FLUBV RNA ROSE+probe Ql (Resp) Negative 16 (01/31/24 4:30 AM) Normal Negative AH Auto Viro/Sero SS Comment on above: Result Comment: [place] [id number] RSV PCR Negative 17 (01/31/24 4:30 AM) Normal Negative AH Auto Viro/Sero SS Comment on above: Result Comment: [place] s [id number] SARS-CoV-2 (COVID-19) RNA ROSE+probe Ql (Resp) Negative 13, 14 (01/31/24 4:30 AM) Normal Negative AH Auto Viro/Sero SS Comment on above: Result Comment: [place] [id number] Interpretive Data: T his test has been [...] 1.07 mmol/L Low 1.12 - 1.32 mmol/L [facility] Comm SS LABORATORYOrdered By: Roshan Galarza on 01-31-2024 Blood Glucose Testing Reason Routine (01/31/24 2:48 AM) [facility] Glucose [Mass/Vol] 153 mg/dL High 70 - 110 mg/dL [facility] LACon 01-31-2024 Lactic Acid Lvl 1.2 mmol/L Normal 0.5-2.2 [facility] ([place]) Comment on above: Result Comment: Spec imen hemolyzed. Results may be affected. Performed By: #### A DIFF, TROPHS, GFR, BMP, MDW, CBC, PBNP, ANEU #### [place] [id number] [place], [place] [address] MGon 01-31-2024 Magnesium [Mass/Vol] 1.5 mg/dL Low 1.6-2.4 [facility] ([place]) Comment on above: Performed By: #### A DIFF, TROPHS, GFR, BMP, MDW, CBC, PBNP, ANEU #### [place] [id number] [place], [place] [address] No Panel Informationon 01-30 Microscopic examination of blood, culture Culture has been received in lab and is no growth to date. Routine cultures are held for 5 days. [facility] PHOSon 01-31-2024 Phosphate [Mass/Vol] 3.1 mg/dL Normal 2.4-5.1 [facility] ([place]) Comment on above: Result Comment: No te - New Reference Range in effect 19 Performed By: #### A DIFF, TROPHS, GFR, BMP, MDW, CBC, PBNP, ANEU #### [address] [address] PROon 01-31-2024 INR Coag (PPP) [Relative time] 1.3 {INR} Normal [facility] ([place]) Comment on above: Result Comment: [employer] (CHEST, 1992, [id number]) recommended therapeutic range for oral anticoagulant therapy is: LOW RISK: Prophylaxis of venous thrombosis INR: 2.0-3.0 Treatment of pulmonary embolism 2.0-3.0 Prevention of systemic embolism 2.0-3.0 HIGH RISK: Mechanical prosthetic valves 2.5-3.5 Performed By: #### A DIFF, TROPHS, GFR, BMP, MDW, CBC, PBNP, ANEU #### [address] [address] PT Coag (PPP) [Time] 14.7 s High 9.0-14.4 [facility] ([place]) Comment on above: Result Comment: Effe ctive 12/11/07, Protime results may be affected by some antibiotics (i.e. Ciprofloxacin, Azithromycin, Bactrim) which may potentiate the action of oral anticoagulants, with further increases in Protime/INR. Performed By: #### A DIFF, TROPHS, GFR, BMP, MDW, CBC, PBNP, ANEU #### [address] [address] [facility] 01-31-2024 High Sensitivity Troponin I 4 ng/L Normal 0-54 [facility] ([place]) Comment on above: Result Comment: High Sensitive Troponin I Reference Ranges: Female: 0-34 ng/L Male: 0-54 ng/L Testing performed on Cyan analyzer using direct chemiluminescent technology. Performed By: #### A DIFF, TROPHS, GFR, BMP, MDW, CBC, PBNP, ANEU #### [address] [address] .Auto Diffon 01-30-2024 Basophil, Absolute 0.2 10 3/mcL Normal 0.0-0.2 [facility] ([place]) Comment on above: Performed By: #### A DIFF, TROPHS, GFR, BMP, MDW, CBC, PBNP, ANEU #### [address] [address] Basophils/100 WBC (Bld) 1.1 % Normal 0.0-2.5 [facility] ([place]) Comment on above: Performed By: #### A DIFF, TROPHS, GFR, BMP, MDW, CBC, PBNP, ANEU #### [address] [address] Eosinophil, Absolute 0.1 10 3/mcL Normal 0.0-0.4 [facility] ([place]) Comment on above: Performed By: #### A DIFF, TROPHS, GFR, BMP, MDW, CBC, PBNP, ANEU #### [address] [address] Eosinophils/100 WBC (Bld) 0.7 % Normal 0.0-7.0 [facility] ([place]) Comment on above: Performed By: #### A DIFF, TROPHS, GFR, BMP, MDW, CBC, PBNP, ANEU #### [address] [address] Lymphocyte, Absolute 2.8 10 3/mcL Normal 0.8-3.9 [facility] ([place]) Comment on above: Performed By: #### A DIFF, TROPHS, GFR, BMP, MDW, CBC, PBNP, ANEU #### [address] [address] Lymphocytes/100 WBC (Bld) 20.2 % Normal 10.0-50.0 [facility] ([place]) Comment on above: Performed By: #### A DIFF, TROPHS, GFR, BMP, MDW, CBC, PBNP, ANEU #### [address] [address] Monocyte, Absolute 1.7 10 3/mcL High 0.2-1.0 [facility] ([place]) Comment on above: Performed By: #### A DIFF, TROPHS, GFR, BMP, MDW, CBC, PBNP, ANEU #### [address] [address] Monocytes/100 WBC (Bld) 12.2 % Normal 1.7-13.0 [facility] ([place]) Comment on above: Performed By: #### A DIFF, TROPHS, GFR, BMP, MDW, CBC, PBNP, ANEU #### [address] [address] Neutrophils/100 WBC (Bld) 65.8 % Normal 37.0-80.0 [facility] ([place]) Comment on above: Performed By: #### A DIFF, TROPHS, GFR, BMP, MDW, CBC, PBNP, ANEU #### [address] [address] .GFRon 01-30-2024 GFR 38 ml/min/1.73sqm Normal [facility] ([place]) Comment on above: Result Comment: GFR Population [...] GFR, BMP, MDW, CBC, PBNP, ANEU #### [address] [address] GFR Non- 31 ml/min/1.73sqm Normal [facility] ([place]) Comment on above: Result Comment: GFR Population [...] GFR, BMP, MDW, CBC, PBNP, ANEU #### [place] [id number] .MDWon 01-30-2024 Monocyte Distribution Width 21.35 High 0.00-20.00 [facility] ([place]) Comment on above: Result Comment: For adults in ED, MDW>20.0 may be associated with a higher risk of sepsis during the first 12hrs of hospital admission Performed By: #### A DIFF, TROPHS, GFR, BMP, MDW, CBC, PBNP, ANEU #### [place] [id number] .NEUABSon 01-30-2024 Neutrophil, Absolute 9.2 10 3/mcL High 2.9-6.2 [facility] ([place]) Comment on above: Performed By: #### A DIFF, TROPHS, GFR, BMP, MDW, CBC, PBNP, ANEU #### [place] [id number] .Urinalysis Microscopic (AO) on 01-30-2024 UA RBC None Seen Normal None Seen [facility] ([place]) Comment on above: Performed By: #### A DIFF, TROPHS, GFR, BMP, MDW, CBC, PBNP, ANEU #### [place] [id number] UA Squam Epithelial None Seen Normal None Seen [facility] ([place]) Comment on above: Performed By: #### A DIFF, TROPHS, GFR, BMP, MDW, CBC, PBNP, ANEU #### [address] [address] UA WBC 0-5 Abnormal None Seen [facility] ([place]) Comment on above: Performed By: #### A DIFF, TROPHS, GFR, BMP, MDW, CBC, PBNP, ANEU #### [place] [id number] BGon 01-30-2024 Base excess Calc (Bld) [Moles/Vol] 4.3 mmol/L Normal [facility] ([place]) Comment on above: Performed By: #### A DIFF, TROPHS, GFR, BMP, MDW, CBC, PBNP, ANEU #### [place] [phone] CO2 [Moles/Vol] 29.8 mmol/L Normal 22.0-30.0 [facility] ([place]) Comment on above: Performed By: #### A DIFF, TROPHS, GFR, BMP, MDW, CBC, PBNP, ANEU #### [place] [phone] HCO3 (Bld) [Moles/Vol] 28.5 mmol/L Normal 21.0-29.0 [facility] ([place]) Comment on above: Performed By: #### A DIFF, TROPHS, GFR, BMP, MDW, CBC, PBNP, ANEU #### [address] [address] Oxygen (Bld) [Partial pressure] 51.0 mm[Hg] Low 74.0-108.0 [facility] ([place]) Comment on above: Performed By: #### A DIFF, TROPHS, GFR, BMP, MDW, CBC, PBNP, ANEU #### [place] [phone] Oxygen saturation in Blood 88.8 % Low 92.0-96.0 [facility] ([place]) Comment on above: Performed By: #### A DIFF, TROPHS, GFR, BMP, MDW, CBC, PBNP, ANEU #### [address] [address] pCO2 41.0 mmHg Normal 32.0-46.0 [facility] ([place]) Comment on above: Performed By: #### A DIFF, TROPHS, GFR, BMP, MDW, CBC, PBNP, ANEU #### [address] [address] pH (Bld) 7.460 [pH] Normal 7.380-7.460 [facility] ([place]) Comment on above: Performed By: #### A DIFF, TROPHS, GFR, BMP, MDW, CBC, PBNP, ANEU #### [address] [address] BMPon 01-30-2024 BUN/Creatinine Ratio 8 ratio Normal 7-27 [facility] ([place]) Comment on above: Performed By: #### A DIFF, TROPHS, GFR, BMP, MDW, CBC, PBNP, ANEU #### [address] [address] Calcium [Mass/Vol] 8.8 mg/dL Normal 8.4-10.2 [facility] ([place]) Comment on above: Performed By: #### A DIFF, TROPHS, GFR, BMP, MDW, CBC, PBNP, ANEU #### [address] [address] Chloride [Moles/Vol] 97 mmol/L Low 98-107 [facility] ([place]) Comment on above: Performed By: #### A DIFF, TROPHS, GFR, BMP, MDW, CBC, PBNP, ANEU #### [address] [address] CO2 [Moles/Vol] 31 mmol/L High 22-29 [facility] ([place]) Comment on above: Performed By: #### A DIFF, TROPHS, GFR, BMP, MDW, CBC, PBNP, ANEU #### [address] [address] Creatinine [Mass/Vol] 2.22 mg/dL High 0.70-1.30 [facility] ([place]) Comment on above: Result Comment: Test ing performed on Siemens Dimension EXL analyzer using a modified kinetic Ciera technique. Performed By: #### A DIFF, TROPHS, GFR, BMP, MDW, CBC, PBNP, ANEU #### [address] [address] Electrolyte Balance 6.0 mEq/L Normal 4.0-15.0 [facility] ([place]) Comment on above: Performed By: #### A DIFF, TROPHS, GFR, BMP, MDW, CBC, PBNP, ANEU #### [address] [address] Glucose [Mass/Vol] 112 mg/dL High 70-105 [facility] ([place]) Comment on above: Performed By: #### A DIFF, TROPHS, GFR, BMP, MDW, CBC, PBNP, ANEU #### [address] [address] Potassium [Moles/Vol] 3.7 mmol/L Normal 3.5-5.1 [facility] ([place]) Comment on above: Performed By: #### A DIFF, TROPHS, GFR, BMP, MDW, CBC, PBNP, ANEU #### [address] [address] Sodium [Moles/Vol] 134 mmol/L Low 136-145 [facility] ([place]) Comment on above: Performed By: #### A DIFF, TROPHS, GFR, BMP, MDW, CBC, PBNP, ANEU #### [address] [address] Urea nitrogen [Mass/Vol] 17 mg/dL Normal 7-18 [facility] ([place]) Comment on above: Performed By: #### A DIFF, TROPHS, GFR, BMP, MDW, CBC, PBNP, ANEU #### [address] [address] CBCon 01-30-2024 Erythrocyte distribution width (RBC) [Ratio] 16.5 % High 11.5-14.5 [facility] ([place]) Comment on above: Performed By: #### A DIFF, TROPHS, GFR, BMP, MDW, CBC, PBNP, ANEU #### [address] [address] Hematocrit (Bld) [Volume fraction] 45.3 % Normal 42.0-52.0 [facility] ([place]) Comment on above: Performed By: #### A DIFF, TROPHS, GFR, BMP, MDW, CBC, PBNP, ANEU #### [address] [address] Hgb 14.9 G/dL Normal 14.0-18.0 [facility] ([place]) Comment on above: Performed By: #### A DIFF, TROPHS, GFR, BMP, MDW, CBC, PBNP, ANEU #### [address] [address] MCH (RBC) [Entitic mass] 26.6 pg Low 27.0-31.2 [facility] ([place]) Comment on above: Performed By: #### A DIFF, TROPHS, GFR, BMP, MDW, CBC, PBNP, ANEU #### [address] [address] MCHC 33.0 G/dL Normal 31.8-35.4 [facility] ([place]) Comment on above: Performed By: #### A DIFF, TROPHS, GFR, BMP, MDW, CBC, PBNP, ANEU #### [address] [address] MCV (RBC) [Entitic vol] 80.7 fL Normal 80.0-94.0 [facility] ([place]) Comment on above: Performed By: #### A DIFF, TROPHS, GFR, BMP, MDW, CBC, PBNP, ANEU #### [address] [address] Platelet 263 10 3/mcL Normal 130-400 [facility] ([place]) Comment on above: Performed By: #### A DIFF, TROPHS, GFR, BMP, MDW, CBC, PBNP, ANEU #### [address] [address] Platelet mean volume (Bld) [Entitic vol] 6.8 fL Low 7.4-10.4 [facility] ([place]) Comment on above: Performed By: #### A DIFF, TROPHS, GFR, BMP, MDW, CBC, PBNP, ANEU #### [address] [address] RBC 5.61 10 6/mcL Normal 4.04-6.13 [facility] ([place]) Comment on above: Performed By: #### A DIFF, TROPHS, GFR, BMP, MDW, CBC, PBNP, ANEU #### [address] [address] WBC 14.0 10 3/mcL High 4.6-10.8 [facility] ([place]) Comment on above: Performed By: #### A DIFF, TROPHS, GFR, BMP, MDW, CBC, PBNP, ANEU #### [address] [address] [address] HEAD OR BRAIN W/O CONTRAS Ton [...] 01/30/2024 10:16:46 PM Ordering Provider: SAMY Kate [facility] ([place]) LABORATORYOrdered By: Jil Morales on 01-30-2024 Appearance [...] ng/L Male: 0-76 ng/L Testing performed on [employer] using a homogeneous sandwich chemiluminescent immunoassay based on Airphrame technology. Lactate [Moles/Vol] 1.0 mmol/L Normal 0.4 [...] ng/L Male: 0-76 ng/L Testing performed on [employer] using a homogeneous sandwich chemiluminescent immunoassay based on [employer] technology. Urea nitrogen [Mass/Vol] 17 mg/dL Normal [...] Lactic Acid Lvl 1.0 mmol/L Normal 0.4-2.0 [facility] ([place]) Comment on above: Performed By: #### L AC #### [address] [address] No Panel Informationon 01-29 Microscopic examination of blood, culture Culture has been received in lab and is no growth to date. Routine cultures are held for 5 days. [facility] PBNPon 01-30-2024 Natriuretic peptide B (Bld) [Mass/Vol] 1822 pg/mL High 0-125 [facility] ([place]) Comment on above: Result Comment: NT-p roBNP results of less than 300 pg/mL effectively rules out acute congestive heart failure with 99% negative predictive value. Performed By: #### A DIFF, TROPHS, GFR, BMP, MDW, CBC, PBNP, ANEU #### [address] [address] TROPHSon 01-30-2024 High Sensitivity Troponin I 7 ng/L Normal 0-76 [facility] ([place]) Comment on above: Result Comment: High Sensitive Troponin I Reference Ranges: Female: 0-51 ng/L Male: 0-76 ng/L Testing performed on [employer] using a homogeneous sandwich chemiluminescent immunoassay based on Air[employer] technology. Performed By: #### A DIFF, TROPHS, GFR, BMP, MDW, CBC, PBNP, ANEU #### [address] [address] High Sensitivity Troponin I 8 ng/L Normal 0-76 [facility] ([place]) Comment on above: Result Comment: High Sensitive Troponin I Reference Ranges: Female: 0-51 ng/L Male: 0-76 ng/L Testing performed on [employer] using a homogeneous sandwich chemiluminescent immunoassay based on [employer] technology. Performed By: #### A DIFF, TROPHS, GFR, BMP, MDW, CBC, PBNP, ANEU #### [address] [address] UAon 01-30-2024 Color (U) Yellow Normal [facility] ([place]) Comment on above: Performed By: #### A DIFF, TROPHS, GFR, BMP, MDW, CBC, PBNP, ANEU #### [address] [address] Glucose (U) [Mass/Vol] Negative Normal Negative [facility] ([place]) Comment on above: Performed By: #### A DIFF, TROPHS, GFR, BMP, MDW, CBC, PBNP, ANEU #### [address] [address] Ketones Ql (U) Negative Normal Negative [facility] ([place]) Comment on above: Performed By: #### A DIFF, TROPHS, GFR, BMP, MDW, CBC, PBNP, ANEU #### [address] [address] UA Appear Clear Normal Clear [facility] ([place]) Comment on above: Performed By: #### A DIFF, TROPHS, GFR, BMP, MDW, CBC, PBNP, ANEU #### [address] [address] UA Bili Small Abnormal Negative [facility] ([place]) Comment on above: Performed By: #### A DIFF, TROPHS, GFR, BMP, MDW, CBC, PBNP, ANEU #### [address] [address] UA Blood Trace Abnormal Negative [facility] ([place]) Comment on above: Performed By: #### A DIFF, TROPHS, GFR, BMP, MDW, CBC, PBNP, ANEU #### [address] [address] UA Leuk Est Trace Abnormal Negative [facility] ([place]) Comment on above: Performed By: #### A DIFF, TROPHS, GFR, BMP, MDW, CBC, PBNP, ANEU #### [address] [address] UA Nitrite Negative Normal Negative [facility] ([place]) Comment on above: Performed By: #### A DIFF, TROPHS, GFR, BMP, MDW, CBC, PBNP, ANEU #### [address] [address] UA pH 6.0 Normal 5.0 - 8.0 [facility] ([place]) Comment on above: Performed By: #### A DIFF, TROPHS, GFR, BMP, MDW, CBC, PBNP, ANEU #### [address] [address] UA Protein 100 mg/dL Abnormal Negative [facility] ([place]) Comment on above: Performed By: #### A DIFF, TROPHS, GFR, BMP, MDW, CBC, PBNP, ANEU #### [address] [address] UA Spec Grav 1.025 Normal 1.015-1.025 [facility] ([place]) Comment on above: Performed By: #### A DIFF, TROPHS, GFR, BMP, MDW, CBC, PBNP, ANEU #### [address] [address] UA Specimen Type Void Normal [facility] ([place]) Comment on above: Performed By: #### A DIFF, TROPHS, GFR, BMP, MDW, CBC, PBNP, ANEU #### [address] [address] UA Urobilinogen 1.0 E.U./dL Normal 0.2-1.0 [facility] ([place]) Comment on above: Performed By: #### A DIFF, TROPHS, GFR, BMP, MDW, CBC, PBNP, ANEU #### [address] [place], [place] [address] XR CHEST 1 VIEWon 01-30-2024 XR CHEST [...] 9:28:12 PM Ordering Provider: SAMY JONES Normal [facility] ([place]) .GFRon 08-08-2023 GFR Non- 105 ml/min/1.73sqm Normal [facility] ([place]) Comment on above: Result Comment: GFR Population [...] GFR, BMP, MDW, CBC, PBNP, ANEU #### [address] [address] GFR 127 ml/min/1.73sqm Normal [facility] ([place]) Comment on above: Result Comment: GFR Population [...] GFR, BMP, MDW, CBC, PBNP, ANEU #### [address] [address] A1Con 08-08-2023 HbA1c (Bld) [Mass fraction] 6.7 % High 4.3-6.4 [facility] ([place]) Comment on above: Performed By: #### A DIFF, TROPHS, GFR, BMP, MDW, CBC, PBNP, ANEU #### [address] [address] CMPon 08-08-2023 Albumin Level 3.4 G/dL Low 3.5-5.0 [facility] ([place]) Comment on above: Performed By: #### A DIFF, TROPHS, GFR, BMP, MDW, CBC, PBNP, ANEU #### [address] [address] Albumin/Globulin [Mass ratio] 0.9 {ratio} Low 1.1-2.5 [facility] ([place]) Comment on above: Performed By: #### A DIFF, TROPHS, GFR, BMP, MDW, CBC, PBNP, ANEU #### [address] [address] ALP [Catalytic activity/Vol] 87 U/L Normal 40-135 [facility] ([place]) Comment on above: Performed By: #### A DIFF, TROPHS, GFR, BMP, MDW, CBC, PBNP, ANEU #### [address] [address] ALT [Catalytic activity/Vol] 19 U/L Normal 16-63 [facility] ([place]) Comment on above: Performed By: #### A DIFF, TROPHS, GFR, BMP, MDW, CBC, PBNP, ANEU #### [address] [address] AST [Catalytic activity/Vol] 15 U/L Normal 10-40 [facility] ([place]) Comment on above: Performed By: #### A DIFF, TROPHS, GFR, BMP, MDW, CBC, PBNP, ANEU #### [address] [address] Bili Total 0.5 mg/dL Normal 0.2-1.0 [facility] ([place]) Comment on above: Result Comment: Use of this assay is not recommended for patients undergoing treatment with eltrombopag due to the potential for falsely elevated results. Performed By: #### A DIFF, TROPHS, GFR, BMP, MDW, CBC, PBNP, ANEU #### [address] [address] BUN/Creatinine Ratio 14 ratio Normal 7-27 [facility] ([place]) Comment on above: Performed By: #### A DIFF, TROPHS, GFR, BMP, MDW, CBC, PBNP, ANEU #### [address] [address] Calcium [Mass/Vol] 8.7 mg/dL Normal 8.4-10.2 [facility] ([place]) Comment on above: Performed By: #### A DIFF, TROPHS, GFR, BMP, MDW, CBC, PBNP, ANEU #### [address] [address] Chloride [Moles/Vol] 100 mmol/L Normal 98-107 [facility] ([place]) Comment on above: Performed By: #### A DIFF, TROPHS, GFR, BMP, MDW, CBC, PBNP, ANEU #### [address] [address] CO2 [Moles/Vol] 34 mmol/L High 22-29 [facility] ([place]) Comment on above: Performed By: #### A DIFF, TROPHS, GFR, BMP, MDW, CBC, PBNP, ANEU #### [address] [address] Creatinine [Mass/Vol] 0.78 mg/dL Normal 0.70-1.30 [facility] ([place]) Comment on above: Performed By: #### A DIFF, TROPHS, GFR, BMP, MDW, CBC, PBNP, ANEU #### [address] [address] Electrolyte Balance 6.0 mEq/L Normal 4.0-15.0 [facility] ([place]) Comment on above: Performed By: #### A DIFF, TROPHS, GFR, BMP, MDW, CBC, PBNP, ANEU #### [address] [address] Globulin 3.8 G/dL Normal [facility] ([place]) Comment on above: Performed By: #### A DIFF, TROPHS, GFR, BMP, MDW, CBC, PBNP, ANEU #### [address] [address] Glucose [Mass/Vol] 121 mg/dL High 70-105 [facility] ([place]) Comment on above: Performed By: #### A DIFF, TROPHS, GFR, BMP, MDW, CBC, PBNP, ANEU #### [address] [address] Potassium [Moles/Vol] 4.2 mmol/L Normal 3.5-5.1 [facility] ([place]) Comment on above: Performed By: #### A DIFF, TROPHS, GFR, BMP, MDW, CBC, PBNP, ANEU #### [address] [address] Sodium [Moles/Vol] 140 mmol/L Normal 136-145 [facility] ([place]) Comment on above: Performed By: #### A DIFF, TROPHS, GFR, BMP, MDW, CBC, PBNP, ANEU #### [address] [address] Total Protein 7.2 G/dL Normal 6.4-8.2 [facility] ([place]) Comment on above: Performed By: #### A DIFF, TROPHS, GFR, BMP, MDW, CBC, PBNP, ANEU #### [address] [address] Urea nitrogen [Mass/Vol] 11 mg/dL Normal 7-18 [facility] ([place]) Comment on above: Performed By: #### A DIFF, TROPHS, GFR, BMP, MDW, CBC, PBNP, ANEU #### [address] [address] LABORATORYOrdered By: Jr Fontaine on 08-08-2023 Albumin DL <= 20 mg/L (U) [Mass/Vol] 378 mcg/dL Invalid Interpretation Code AO ADM SS Albumin/Creatinine DL <= 20 mg/L (U) [Mass ratio] 12 mcg/mg Normal 0 - 30 mcg/mg AO ADM SS Creatinine (U) [Mass/Vol] 30.5 mg/dL Low 39.0 - 259.0 mg/dL AO ADM SS LIPIDon 08-08-2023 Cholesterol [Mass/Vol] 156 mg/dL Normal 0-200 [facility] ([place]) Comment on above: Result Comment: Chol esterol Reference Interval: Less than 200 Desirable 200-239 Borderline high risk 240 and above High risk Performed By: #### A DIFF, TROPHS, GFR, BMP, MDW, CBC, PBNP, ANEU #### [address] [address] Cholesterol in HDL [Mass/Vol] 28 mg/dL Low 40-60 [facility] ([place]) Comment on above: Performed By: #### A DIFF, TROPHS, GFR, BMP, MDW, CBC, PBNP, ANEU #### [address] [address] Cholesterol in LDL [Mass/Vol] 93 mg/dL Normal 0-130 [facility] ([place]) Comment on above: Performed By: #### A DIFF, TROPHS, GFR, BMP, MDW, CBC, PBNP, ANEU #### [address] [address] Triglyceride [Mass/Vol] 175 mg/dL High 0-150 [facility] ([place]) Comment on above: Result Comment: Trig lyceride Reference Interval: Less than 150 Normal 150-199 Borderline high risk 200-499 High risk 500 or higher Very high risk Performed By: #### A DIFF, TROPHS, GFR, BMP, MDW, CBC, PBNP, ANEU #### [address] [address] MALBRon 08-08-2023 U Creatinine 30.5 mg/dL Low 39.0-259.0 [facility] ([place]) Comment on above: Performed By: #### A DIFF, TROPHS, GFR, BMP, MDW, CBC, PBNP, ANEU #### [address] [address] U Microalb 378 mcg/dL Normal [facility] ([place]) Comment on above: Performed By: #### A DIFF, TROPHS, GFR, BMP, MDW, CBC, PBNP, ANEU #### [address] [address] U Ratio Alb/Cre 12 mcg/mg Normal 0-30 [facility] ([place]) Comment on above: Performed By: #### A DIFF, TROPHS, GFR, BMP, MDW, CBC, PBNP, ANEU #### [address] [address] CVFLURVon 06-13-2023 FLU A PCR Negative Normal Negative [facility] ([place]) Comment on above: Performed By: #### A DIFF, TROPHS, GFR, BMP, MDW, CBC, PBNP, ANEU #### [address] [address] FLU B PCR Negative Normal Negative [facility] ([place]) Comment on above: Performed By: #### A DIFF, TROPHS, GFR, BMP, MDW, CBC, PBNP, ANEU #### [id number] [place], [place] [address] RSV PCR Negative Normal Negative [facility] ([place]) Comment on above: Performed By: #### A DIFF, TROPHS, GFR, BMP, MDW, CBC, PBNP, ANEU #### [id number] [place] [id number] SARS-CoV-2 (COVID-19) RNA ROSE+probe Ql (Unsp spec) Negative Normal Negative [facility] ([place]) Comment on above: Result Comment: This test [...] GFR, BMP, MDW, CBC, PBNP, ANEU #### [id number] [place], [place] [address] LABORATORYOrdered By: Giovana Fischer on 06-13-2023 FLUAV [...] Date: 06/13/2023 12:39:50 AM Ordering Provider: DEMI HUSTON [facility] ([place]) .Auto Diffon 06-09-2023 Basophil, Absolute 0.1 10 3/mcL Normal 0.0-0.3 [facility] ([place]) Comment on above: Performed By: #### A DIFF, TROPHS, GFR, BMP, MDW, CBC, PBNP, ANEU #### [address] [address] Basophils/100 WBC (Bld) 0.8 % Normal 0.0-2.5 [facility] ([place]) Comment on above: Performed By: #### A DIFF, TROPHS, GFR, BMP, MDW, CBC, PBNP, ANEU #### [address] [address] Eosinophil, Absolute 0.1 10 3/mcL Normal 0.0-0.7 [facility] ([place]) Comment on above: Performed By: #### A DIFF, TROPHS, GFR, BMP, MDW, CBC, PBNP, ANEU #### [address] [address] Eosinophils/100 WBC (Bld) 2.0 % Normal 0.0-6.0 [facility] ([place]) Comment on above: Performed By: #### A DIFF, TROPHS, GFR, BMP, MDW, CBC, PBNP, ANEU #### [address] [address] Lymphocyte, Absolute 1.0 10 3/mcL Normal 0.9-4.3 [facility] ([place]) Comment on above: Performed By: #### A DIFF, TROPHS, GFR, BMP, MDW, CBC, PBNP, ANEU #### [address] [address] Lymphocytes/100 WBC (Bld) 15.5 % Low 20.0-40.0 [facility] ([place]) Comment on above: Performed By: #### A DIFF, TROPHS, GFR, BMP, MDW, CBC, PBNP, ANEU #### [address] [address] Monocyte, Absolute 0.7 10 3/mcL Normal 0.1-1.4 [facility] ([place]) Comment on above: Performed By: #### A DIFF, TROPHS, GFR, BMP, MDW, CBC, PBNP, ANEU #### [address] [address] Monocytes/100 WBC (Bld) 11.1 % Normal 2.0-13.0 A [facility] ([place]) Comment on above: Performed By: #### A DIFF, TROPHS, GFR, BMP, MDW, CBC, PBNP, ANEU #### [address] [address] Neutrophils/100 WBC (Bld) 70.6 % Normal 50.0-75.0 [facility] ([place]) Comment on above: Performed By: #### A DIFF, TROPHS, GFR, BMP, MDW, CBC, PBNP, ANEU #### [address] [address] .GFRon 06-09-2023 GFR Non- >60 Normal [facility] ([place]) Comment on above: Result Comment: GFR Population [...] GFR, BMP, MDW, CBC, PBNP, ANEU #### [address] [address] GFR >60 Normal [facility] ([place]) Comment on above: Result Comment: GFR Population [...] GFR, BMP, MDW, CBC, PBNP, ANEU #### [address] [address] .NEUABSon 06-09-2023 Neutrophil, Absolute 4.7 10 3/mcL Normal 2.3-8.1 [facility] ([place]) Comment on above: Performed By: #### A DIFF, TROPHS, GFR, BMP, MDW, CBC, PBNP, ANEU #### [address] [address] BMPon 06-09-2023 BUN/Creatinine Ratio 11.8 ratio Normal 10.0-22.0 [facility] ([place]) Comment on above: Performed By: #### A DIFF, TROPHS, GFR, BMP, MDW, CBC, PBNP, ANEU #### [address] [address] Calcium [Mass/Vol] 9.0 mg/dL Normal 8.7-10.4 [facility] ([place]) Comment on above: Performed By: #### A DIFF, TROPHS, GFR, BMP, MDW, CBC, PBNP, ANEU #### [address] [address] Chloride [Moles/Vol] 102 mmol/L Normal 98-110 [facility] ([place]) Comment on above: Performed By: #### A DIFF, TROPHS, GFR, BMP, MDW, CBC, PBNP, ANEU #### [address] [address] CO2 [Moles/Vol] 35 mmol/L High 22-32 [facility] ([place]) Comment on above: Performed By: #### A DIFF, TROPHS, GFR, BMP, MDW, CBC, PBNP, ANEU #### [address] [address] Creatinine [Mass/Vol] 0.85 mg/dL Normal 0.60-1.40 [facility] ([place]) Comment on above: Performed By: #### A DIFF, TROPHS, GFR, BMP, MDW, CBC, PBNP, ANEU #### [address] [address] Electrolyte Balance 0.0 mEq/L Low 4.0-15.0 [facility] ([place]) Comment on above: Performed By: #### A DIFF, TROPHS, GFR, BMP, MDW, CBC, PBNP, ANEU #### [address] [address] Glucose [Mass/Vol] 146 mg/dL High 70-110 [facility] ([place]) Comment on above: Performed By: #### A DIFF, TROPHS, GFR, BMP, MDW, CBC, PBNP, ANEU #### [address] [address] Potassium [Moles/Vol] 4.8 mmol/L Normal 3.5-5.0 [facility] ([place]) Comment on above: Performed By: #### A DIFF, TROPHS, GFR, BMP, MDW, CBC, PBNP, ANEU #### [address] [address] Sodium [Moles/Vol] 137 mmol/L Normal 136-145 [facility] ([place]) Comment on above: Performed By: #### A DIFF, TROPHS, GFR, BMP, MDW, CBC, PBNP, ANEU #### [address] [address] Urea nitrogen [Mass/Vol] 10.0 mg/dL Normal 8.0-22.0 [facility] ([place]) Comment on above: Result Comment: Spec imen hemolyzed. Results may be falsely elevated. Performed By: #### A DIFF, TROPHS, GFR, BMP, MDW, CBC, PBNP, ANEU #### [address] [address] CBCon 06-09-2023 Erythrocyte distribution width (RBC) [Ratio] 13.3 % Normal 11.5-15.5 [facility] ([place]) Comment on above: Performed By: #### A DIFF, TROPHS, GFR, BMP, MDW, CBC, PBNP, ANEU #### [address] [address] Hematocrit (Bld) [Volume fraction] 45.9 % Normal 40.0-52.0 [facility] ([place]) Comment on above: Performed By: #### A DIFF, TROPHS, GFR, BMP, MDW, CBC, PBNP, ANEU #### [place] [address] Hgb 15.6 G/dL Normal 13.0-17.5 [facility] ([place]) Comment on above: Performed By: #### A DIFF, TROPHS, GFR, BMP, MDW, CBC, PBNP, ANEU #### [address] [address] MCH (RBC) [Entitic mass] 29.0 pg Normal 27.0-33.0 [facility] ([place]) Comment on above: Performed By: #### A DIFF, TROPHS, GFR, BMP, MDW, CBC, PBNP, ANEU #### [address] [address] MCHC 33.9 G/dL Normal 32.0-36.0 [facility] ([place]) Comment on above: Performed By: #### A DIFF, TROPHS, GFR, BMP, MDW, CBC, PBNP, ANEU #### [address] [address] MCV (RBC) [Entitic vol] 85.5 fL Normal 81.0-100.0 [facility] ([place]) Comment on above: Performed By: #### A DIFF, TROPHS, GFR, BMP, MDW, CBC, PBNP, ANEU #### [address] [address] Platelet 174 10 3/mcL Normal 150-450 [facility] ([place]) Comment on above: Performed By: #### A DIFF, TROPHS, GFR, BMP, MDW, CBC, PBNP, ANEU #### [address] [address] Platelet mean volume (Bld) [Entitic vol] 7.5 fL Normal 6.4-10.5 [facility] ([place]) Comment on above: Performed By: #### A DIFF, TROPHS, GFR, BMP, MDW, CBC, PBNP, ANEU #### [address] [address] RBC 5.37 10 6/mcL Normal 4.50-6.00 [facility] ([place]) Comment on above: Performed By: #### A DIFF, TROPHS, GFR, BMP, MDW, CBC, PBNP, ANEU #### [address] [address] WBC 6.6 10 3/mcL Normal 4.5-10.8 [facility] ([place]) Comment on above: Performed By: #### A DIFF, TROPHS, GFR, BMP, MDW, CBC, PBNP, ANEU #### [address] [address] LABORATORYOrdered By: Adenike Swain on 06-09-2023 Blood Glucose Testing Reason Routine (06/09/23 4:18 PM) [facility] Glucose [Mass/Vol] 114 mg/dL High 70 - 110 mg/dL [facility] LABORATORYOrdered By: Cris Jang on 06-09-2023 Blood Glucose Testing Reason Routine (06/09/23 7:51 AM) [facility] Glucose [Mass/Vol] 142 mg/dL High 70 - 110 mg/dL [facility] LABORATORYOrdered By: SYSTEM SYSTEM on 06-09-2023 [...] 06-09-2023 Magnesium [Mass/Vol] 2.1 mg/dL Normal 1.6-2.4 [facility] ([place]) Comment on above: Performed By: #### A DIFF, TROPHS, GFR, BMP, MDW, CBC, PBNP, ANEU #### [address] [address] .Auto Diffon 06-08-2023 Basophil, Absolute 0.1 10 3/mcL Normal 0.0-0.3 [facility] ([place]) Comment on above: Performed By: #### A DIFF, TROPHS, GFR, BMP, MDW, CBC, PBNP, ANEU #### [address] [address] Basophils/100 WBC (Bld) 0.7 % Normal 0.0-2.5 A [facility] ([place]) Comment on above: Performed By: #### A DIFF, TROPHS, GFR, BMP, MDW, CBC, PBNP, ANEU #### [address] [address] Eosinophil, Absolute 0.1 10 3/mcL Normal 0.0-0.7 [facility] ([place]) Comment on above: Performed By: #### A DIFF, TROPHS, GFR, BMP, MDW, CBC, PBNP, ANEU #### [address] [address] Eosinophils/100 WBC (Bld) 1.9 % Normal 0.0-6.0 [facility] ([place]) Comment on above: Performed By: #### A DIFF, TROPHS, GFR, BMP, MDW, CBC, PBNP, ANEU #### [address] [address] Lymphocyte, Absolute 1.3 10 3/mcL Normal 0.9-4.3 [facility] ([place]) Comment on above: Performed By: #### A DIFF, TROPHS, GFR, BMP, MDW, CBC, PBNP, ANEU #### [address] [address] Lymphocytes/100 WBC (Bld) 16.1 % Low 20.0-40.0 [facility] ([place]) Comment on above: Performed By: #### A DIFF, TROPHS, GFR, BMP, MDW, CBC, PBNP, ANEU #### [address] [address] Monocyte, Absolute 0.8 10 3/mcL Normal 0.1-1.4 [facility] ([place]) Comment on above: Performed By: #### A DIFF, TROPHS, GFR, BMP, MDW, CBC, PBNP, ANEU #### [address] [address] Monocytes/100 WBC (Bld) 9.9 % Normal 2.0-13.0 [facility] ([place]) Comment on above: Performed By: #### A DIFF, TROPHS, GFR, BMP, MDW, CBC, PBNP, ANEU #### [address] [address] Neutrophils/100 WBC (Bld) 71.4 % Normal 50.0-75.0 [facility] ([place]) Comment on above: Performed By: #### A DIFF, TROPHS, GFR, BMP, MDW, CBC, PBNP, ANEU #### [address] [address] .GFRon 06-08-2023 GFR >60 Normal [facility] ([place]) Comment on above: Result Comment: GFR Population [...] GFR, BMP, MDW, CBC, PBNP, ANEU #### [address] [address] GFR Non- >60 Normal [facility] ([place]) Comment on above: Result Comment: GFR Population [...] GFR, BMP, MDW, CBC, PBNP, ANEU #### [address] [address] .NEUABSon 06-08-2023 Neutrophil, Absolute 5.7 10 3/mcL Normal 2.3-8.1 [facility] ([place]) Comment on above: Performed By: #### A DIFF, TROPHS, GFR, BMP, MDW, CBC, PBNP, ANEU #### [address] [address] BMPon 06-08-2023 BUN/Creatinine Ratio 10.7 ratio Normal 10.0-22.0 [facility] ([place]) Comment on above: Performed By: #### A DIFF, TROPHS, GFR, BMP, MDW, CBC, PBNP, ANEU #### [address] [address] Calcium [Mass/Vol] 8.9 mg/dL Normal 8.7-10.4 [facility] ([place]) Comment on above: Performed By: #### A DIFF, TROPHS, GFR, BMP, MDW, CBC, PBNP, ANEU #### [address] [address] Chloride [Moles/Vol] 100 mmol/L Normal 98-110 [facility] ([place]) Comment on above: Performed By: #### A DIFF, TROPHS, GFR, BMP, MDW, CBC, PBNP, ANEU #### [address] [address] CO2 [Moles/Vol] 36 mmol/L High 22-32 [facility] ([place]) Comment on above: Performed By: #### A DIFF, TROPHS, GFR, BMP, MDW, CBC, PBNP, ANEU #### [address] [address] Creatinine [Mass/Vol] 0.75 mg/dL Normal 0.60-1.40 [facility] ([place]) Comment on above: Performed By: #### A DIFF, TROPHS, GFR, BMP, MDW, CBC, PBNP, ANEU #### [address] [address] Electrolyte Balance 1.0 mEq/L Low 4.0-15.0 [facility] ([place]) Comment on above: Performed By: #### A DIFF, TROPHS, GFR, BMP, MDW, CBC, PBNP, ANEU #### [address] [address] Glucose [Mass/Vol] 160 mg/dL High 70-110 [facility] ([place]) Comment on above: Performed By: #### A DIFF, TROPHS, GFR, BMP, MDW, CBC, PBNP, ANEU #### [address] [address] Potassium [Moles/Vol] 3.4 mmol/L Low 3.5-5.0 [facility] ([place]) Comment on above: Result Comment: Spec imen slightly hemolyzed. Performed By: #### A DIFF, TROPHS, GFR, BMP, MDW, CBC, PBNP, ANEU #### [address] [address] Sodium [Moles/Vol] 137 mmol/L Normal 136-145 [facility] ([place]) Comment on above: Performed By: #### A DIFF, TROPHS, GFR, BMP, MDW, CBC, PBNP, ANEU #### [address] [address] Urea nitrogen [Mass/Vol] 8.0 mg/dL Normal 8.0-22.0 [facility] ([place]) Comment on above: Performed By: #### A DIFF, TROPHS, GFR, BMP, MDW, CBC, PBNP, ANEU #### [address] [address] CBCon 06-08-2023 Erythrocyte distribution width (RBC) [Ratio] 13.1 % Normal 11.5-15.5 [facility] ([place]) Comment on above: Performed By: #### A DIFF, TROPHS, GFR, BMP, MDW, CBC, PBNP, ANEU #### [address] [address] Hematocrit (Bld) [Volume fraction] 45.7 % Normal 40.0-52.0 [facility] ([place]) Comment on above: Performed By: #### A DIFF, TROPHS, GFR, BMP, MDW, CBC, PBNP, ANEU #### [address] [address] Hgb 15.6 G/dL Normal 13.0-17.5 [facility] ([place]) Comment on above: Performed By: #### A DIFF, TROPHS, GFR, BMP, MDW, CBC, PBNP, ANEU #### [address] [address] MCH (RBC) [Entitic mass] 29.1 pg Normal 27.0-33.0 [facility] ([place]) Comment on above: Performed By: #### A DIFF, TROPHS, GFR, BMP, MDW, CBC, PBNP, ANEU #### [place] [address] MCHC 34.3 G/dL Normal 32.0-36.0 [facility] ([place]) Comment on above: Performed By: #### A DIFF, TROPHS, GFR, BMP, MDW, CBC, PBNP, ANEU #### [place] [address] MCV (RBC) [Entitic vol] 85.0 fL Normal 81.0-100.0 [facility] ([place]) Comment on above: Performed By: #### A DIFF, TROPHS, GFR, BMP, MDW, CBC, PBNP, ANEU #### [address] [address] Platelet 200 10 3/mcL Normal 150-450 [facility] ([place]) Comment on above: Performed By: #### A DIFF, TROPHS, GFR, BMP, MDW, CBC, PBNP, ANEU #### [address] [address] Platelet mean volume (Bld) [Entitic vol] 7.5 fL Normal 6.4-10.5 [facility] ([place]) Comment on above: Performed By: #### A DIFF, TROPHS, GFR, BMP, MDW, CBC, PBNP, ANEU #### [place] [address] RBC 5.37 10 6/mcL Normal 4.50-6.00 [facility] ([place]) Comment on above: Performed By: #### A DIFF, TROPHS, GFR, BMP, MDW, CBC, PBNP, ANEU #### [place] [id number] [place], [place] [address] WBC 7.9 10 3/mcL Normal 4.5-10.8 [facility] ([place]) Comment on above: Performed By: #### A DIFF, TROPHS, GFR, BMP, MDW, CBC, PBNP, ANEU #### [place] [id number] [place], [place] [address] LABORATORYOrdered By: Adenike Swain on 06-08-2023 Blood Glucose Testing Reason Routine (06/08/23 9:18 PM) [facility] Glucose [Mass/Vol] 173 mg/dL High 70 - 110 mg/dL [facility] LABORATORYOrdered By: SYSTEM SYSTEM on 06-08-2023 [...] (S/P/Bld) [Vol rate/Area] ml/min/1.73sqm Invalid Interpretation Code [facility] Comment on above: Interpretive Data: GFR Population [...] (S/P/Bld) [Vol rate/Area] ml/min/1.73sqm Invalid Interpretation Code [facility] Comment on above: Interpretive Data: GFR Population [...] 06-08-2023 Magnesium [Mass/Vol] 2.1 mg/dL Normal 1.6-2.4 [facility] ([place]) Comment on above: Performed By: #### A DIFF, TROPHS, GFR, BMP, MDW, CBC, PBNP, ANEU #### [address] [address] .Auto Diffon 06-07-2023 Basophil, Absolute 0.1 10 3/mcL Normal 0.0-0.3 [facility] ([place]) Comment on above: Performed By: #### A DIFF, TROPHS, GFR, BMP, MDW, CBC, PBNP, ANEU #### [address] [address] Basophils/100 WBC (Bld) 0.6 % Normal 0.0-2.5 [facility] ([place]) Comment on above: Performed By: #### A DIFF, TROPHS, GFR, BMP, MDW, CBC, PBNP, ANEU #### [address] [address] Eosinophil, Absolute 0.2 10 3/mcL Normal 0.0-0.7 [facility] ([place]) Comment on above: Performed By: #### A DIFF, TROPHS, GFR, BMP, MDW, CBC, PBNP, ANEU #### [address] [address] Eosinophils/100 WBC (Bld) 1.6 % Normal 0.0-6.0 [facility] ([place]) Comment on above: Performed By: #### A DIFF, TROPHS, GFR, BMP, MDW, CBC, PBNP, ANEU #### [address] [address] Lymphocyte, Absolute 1.4 10 3/mcL Normal 0.9-4.3 [facility] ([place]) Comment on above: Performed By: #### A DIFF, TROPHS, GFR, BMP, MDW, CBC, PBNP, ANEU #### [address] [address] Lymphocytes/100 WBC (Bld) 14.0 % Low 20.0-40.0 [facility] ([place]) Comment on above: Performed By: #### A DIFF, TROPHS, GFR, BMP, MDW, CBC, PBNP, ANEU #### [address] [address] Monocyte, Absolute 0.6 10 3/mcL Normal 0.1-1.4 [facility] ([place]) Comment on above: Performed By: #### A DIFF, TROPHS, GFR, BMP, MDW, CBC, PBNP, ANEU #### [address] [address] Monocytes/100 WBC (Bld) 6.4 % Normal 2.0-13.0 A [facility] ([place]) Comment on above: Performed By: #### A DIFF, TROPHS, GFR, BMP, MDW, CBC, PBNP, ANEU #### [address] [address] Neutrophils/100 WBC (Bld) 77.4 % High 50.0-75.0 [facility] ([place]) Comment on above: Performed By: #### A DIFF, TROPHS, GFR, BMP, MDW, CBC, PBNP, ANEU #### [address] [address] .GFRon 06-07-2023 GFR >60 Normal [facility] ([place]) Comment on above: Result Comment: GFR Population [...] GFR, BMP, MDW, CBC, PBNP, ANEU #### [address] [address] GFR Non- >60 Normal [facility] ([place]) Comment on above: Result Comment: GFR Population [...] MDW, CBC, PBNP, ANEU #### [place] [address] .NEUABSon 06-07-2023 Neutrophil, Absolute 7.7 10 3/mcL Normal 2.3-8.1 [facility] ([place]) Comment on above: Performed By: #### A DIFF, TROPHS, GFR, BMP, MDW, CBC, PBNP, ANEU #### [place] [address] CBCon 06-07-2023 Erythrocyte distribution width (RBC) [Ratio] 14.0 % Normal 11.5-15.5 [facility] ([place]) Comment on above: Performed By: #### A DIFF, TROPHS, GFR, BMP, MDW, CBC, PBNP, ANEU #### [place] [address] Hematocrit (Bld) [Volume fraction] 47.6 % Normal 40.0-52.0 [facility] ([place]) Comment on above: Performed By: #### A DIFF, TROPHS, GFR, BMP, MDW, CBC, PBNP, ANEU #### [place] [address] Hgb 16.3 G/dL Normal 13.0-17.5 [facility] ([place]) Comment on above: Performed By: #### A DIFF, TROPHS, GFR, BMP, MDW, CBC, PBNP, ANEU #### [address] [address] MCH (RBC) [Entitic mass] 29.1 pg Normal 27.0-33.0 [facility] ([place]) Comment on above: Performed By: #### A DIFF, TROPHS, GFR, BMP, MDW, CBC, PBNP, ANEU #### [address] [address] MCHC 34.2 G/dL Normal 32.0-36.0 [facility] ([place]) Comment on above: Performed By: #### A DIFF, TROPHS, GFR, BMP, MDW, CBC, PBNP, ANEU #### [address] [address] MCV (RBC) [Entitic vol] 84.9 fL Normal 81.0-100.0 A [facility] ([place]) Comment on above: Performed By: #### A DIFF, TROPHS, GFR, BMP, MDW, CBC, PBNP, ANEU #### [address] [address] Platelet 228 10 3/mcL Normal 150-450 [facility] ([place]) Comment on above: Performed By: #### A DIFF, TROPHS, GFR, BMP, MDW, CBC, PBNP, ANEU #### [address] [address] Platelet mean volume (Bld) [Entitic vol] 8.0 fL Normal 6.4-10.5 [facility] ([place]) Comment on above: Performed By: #### A DIFF, TROPHS, GFR, BMP, MDW, CBC, PBNP, ANEU #### [address] [address] RBC 5.61 10 6/mcL Normal 4.50-6.00 [facility] ([place]) Comment on above: Performed By: #### A DIFF, TROPHS, GFR, BMP, MDW, CBC, PBNP, ANEU #### [address] [address] WBC 9.9 10 3/mcL Normal 4.5-10.8 [facility] ([place]) Comment on above: Performed By: #### A DIFF, TROPHS, GFR, BMP, MDW, CBC, PBNP, ANEU #### [address] [address] CMPon 06-07-2023 Albumin Level 3.3 G/dL Normal 3.2-4.8 [facility] ([place]) Comment on above: Order Comment: hemol yzed. needs redrawn Performed By: #### A DIFF, TROPHS, GFR, BMP, MDW, CBC, PBNP, ANEU #### [address] [address] Albumin/Globulin [Mass ratio] 0.9 {ratio} Normal 0.9-1.6 [facility] ([place]) Comment on above: Order Comment: hemol yzed. needs redrawn Performed By: #### A DIFF, TROPHS, GFR, BMP, MDW, CBC, PBNP, ANEU #### [address] [address] ALP [Catalytic activity/Vol] 93 U/L Normal 38-126 [facility] ([place]) Comment on above: Order Comment: hemol yzed. needs redrawn Performed By: #### A DIFF, TROPHS, GFR, BMP, MDW, CBC, PBNP, ANEU #### [address] [address] ALT [Catalytic activity/Vol] 13 U/L Normal 12-55 [facility] ([place]) Comment on above: Order Comment: hemol yzed. needs redrawn Performed By: #### A DIFF, TROPHS, GFR, BMP, MDW, CBC, PBNP, ANEU #### [address] [address] AST [Catalytic activity/Vol] 13 U/L Normal 8-34 [facility] ([place]) Comment on above: Order Comment: hemol yzed. needs redrawn Performed By: #### A DIFF, TROPHS, GFR, BMP, MDW, CBC, PBNP, ANEU #### [address] [address] Bili Total 0.30 mg/dL Normal 0.20-1.20 [facility] ([place]) Comment on above: Order Comment: hemol yzed. needs redrawn Result Comment: Use of this assay is not recommended for patients undergoing treatment with eltrombopag due to the potential for falsely elevated results. Performed By: #### A DIFF, TROPHS, GFR, BMP, MDW, CBC, PBNP, ANEU #### [address] [address] BUN/Creatinine Ratio 10.8 ratio Normal 10.0-22.0 [facility] ([place]) Comment on above: Order Comment: hemol yzed. needs redrawn Performed By: #### A DIFF, TROPHS, GFR, BMP, MDW, CBC, PBNP, ANEU #### [address] [address] Calcium [Mass/Vol] 8.8 mg/dL Normal 8.7-10.4 [facility] ([place]) Comment on above: Order Comment: hemol yzed. needs redrawn Performed By: #### A DIFF, TROPHS, GFR, BMP, MDW, CBC, PBNP, ANEU #### [address] [address] Chloride [Moles/Vol] 97 mmol/L Low 98-110 [facility] ([place]) Comment on above: Order Comment: hemol yzed. needs redrawn Performed By: #### A DIFF, TROPHS, GFR, BMP, MDW, CBC, PBNP, ANEU #### [address] [address] CO2 [Moles/Vol] 37 mmol/L High 22-32 [facility] ([place]) Comment on above: Order Comment: hemol yzed. needs redrawn Performed By: #### A DIFF, TROPHS, GFR, BMP, MDW, CBC, PBNP, ANEU #### [address] [address] Creatinine [Mass/Vol] 0.93 mg/dL Normal 0.60-1.40 [facility] ([place]) Comment on above: Order Comment: hemol yzed. needs redrawn Performed By: #### A DIFF, TROPHS, GFR, BMP, MDW, CBC, PBNP, ANEU #### [address] [address] Electrolyte Balance 3.0 mEq/L Low 4.0-15.0 [facility] ([place]) Comment on above: Order Comment: hemol yzed. needs redrawn Performed By: #### A DIFF, TROPHS, GFR, BMP, MDW, CBC, PBNP, ANEU #### [address] [address] Globulin 3.6 G/dL Normal 1.5-3.8 [facility] ([place]) Comment on above: Order Comment: hemol yzed. needs redrawn Performed By: #### A DIFF, TROPHS, GFR, BMP, MDW, CBC, PBNP, ANEU #### [address] [address] Glucose [Mass/Vol] 209 mg/dL High 70-110 [facility] ([place]) Comment on above: Order Comment: hemol yzed. needs redrawn Performed By: #### A DIFF, TROPHS, GFR, BMP, MDW, CBC, PBNP, ANEU #### [address] [address] Potassium [Moles/Vol] 3.6 mmol/L Normal 3.5-5.0 [facility] ([place]) Comment on above: Order Comment: hemol yzed. needs redrawn Result Comment: Spec imen slightly hemolyzed. Performed By: #### A DIFF, TROPHS, GFR, BMP, MDW, CBC, PBNP, ANEU #### [address] [address] Sodium [Moles/Vol] 137 mmol/L Normal 136-145 [facility] ([place]) Comment on above: Order Comment: hemol yzed. needs redrawn Performed By: #### A DIFF, TROPHS, GFR, BMP, MDW, CBC, PBNP, ANEU #### [address] [address] Total Protein 6.9 G/dL Normal 5.7-8.2 [facility] ([place]) Comment on above: Order Comment: hemol yzed. needs redrawn Result Comment: No te - New Reference Range in effect 19 Performed By: #### A DIFF, TROPHS, GFR, BMP, MDW, CBC, PBNP, ANEU #### [place] [id number] [place], [place] [address] Urea nitrogen [Mass/Vol] 10.0 mg/dL Normal 8.0-22.0 [facility] ([place]) Comment on above: Order Comment: hemol yzed. needs redrawn Performed By: #### A DIFF, TROPHS, GFR, BMP, MDW, CBC, PBNP, ANEU #### [address] [address] LABORATORYOrdered By: SYSTEM SYSTEM on 06-07-2023 Albumin [...] 34.2 G/dL Normal 32.0 - 36.0 G/dL Workflow SS MCV (RBC) [Entitic vol] 84.9 [...] 06-07-2023 Magnesium [Mass/Vol] 1.7 mg/dL Normal 1.6-2.4 [facility] ([place]) Comment on above: Performed By: #### A DIFF, TROPHS, GFR, BMP, MDW, CBC, PBNP, ANEU #### Larry [address] [address] XR CHEST 1 VIEWon 05-05-2023 XR CHEST [...] Date: 05/05/2023 9:17:04 PM Ordering Provider: DEMI [facility] ([place]) XR RIBS 2 VIEWS RIGHTon 0 XR RIBS 2 VIEWS RIGHT ORIGINAL EXAMINATION: [...] 05/05/2023 9:08:30 PM Ordering Provider: DEMI BETZAIDA [facility] ([place]) PBNPon 03-22-2023 Natriuretic peptide B (Bld) [Mass/Vol] 378 pg/mL High 0-125 [facility] ([place]) Comment on above: Result Comment: NT-p roBNP results of less than 300 pg/mL effectively rules out acute congestive heart failure with 99% negative predictive value. Performed By: #### A DIFF, TROPHS, GFR, BMP, MDW, CBC, PBNP, ANEU #### [address] [address] Influenza virus A and B and SARS-CoV-2 (COVID-19) Ag panel - Upper respiratory specimOrdered By: Nguyễn Al on 02-12-2023 SARS-CoV-2 (COVID-19) RNA ROSE+probe Ql (Resp) [facility] LABORATORYOrdered By: SYSTEM SYSTEM on 12-23-2022 [...] Auto (Unsp spec) [#/Vol] 1.50 10*3/uL 0.83-4.[address] [facility] Basophil percentageOrdered B y: Dr. Brown on 10-23-2022 Basophils/100 WBC (Bld) 0.8 % 0-1 [facility] Chloride [Moles/Vol] 102 mmol/L 98-107 [facility] Eosinophils/100 WBC (Bld) 2.4 % 0-[address] [facility] Glucose [Mass/Vol] 126 mg/dL 74-106 [facility] Comment on above: Fasting Glucose resu lt greater than or equal to 126 mg/dL suggests DIABETES MELLITUS per A.D.A. criteria. Neutrophils (Bld) [#/Vol] 5.4 10*3/uL 2.0-7.[address] [facility] Neutrophils/100 WBC (Bld) 67.9 % 47-[address] [facility] Potassium [Moles/Vol] 3.2 mmol/L 3.5-5.1 [facility] Sodium [Moles/Vol] 140 mmol/L 136-145 [facility] WBC (Bld) [#/Vol] 7.9 10*3/uL 4.4-11.0 [facility] Blood erythrocytes count (nu mber/volume)Ordered By: Dr. Brown on 10-23-2022 RBC (Bld) [#/Vol] 6.06 10*6/uL 4.6-6.2 [facility] Blood hemoglobin measurement (mass/volume)Ordered By: Dr. Brown on 10-23-2022 Hemoglobin (Bld) [Mass/Vol] 17.2 g/dL 13.0-16.[address] [facility] Blood lymphocytes/100 leukoc ytesOrdered By: Dr. Brown on 10-23-2022 Lymphocytes/100 WBC (Bld) 19.0 % 19-[address] [facility] Blood monocytes/100 leukocyt esOrdered By: Dr. Brown on 10-23-2022 Monocytes/100 WBC (Bld) 9.6 % 0-10 [facility] Blood platelet mean volumeOr dered By: Dr. Brown on 10-23-2022 Platelet mean volume (Bld) [Entitic vol] 10.3 fL 6.2-12.[address] [facility] Determination of erythrocyte mean corpuscular volume (MCV)Ordered By: Dr. Brown on 10-23-2022 MCV (RBC) [Entitic vol] 89.6 fL 80-94 [facility] Hematocrit Auto (Bld) [Volum e fraction]Ordered By: Dr. Brown on 10-23-2022 Hematocrit (Bld) [Volume fraction] 54.3 % 40-[address] [facility] Laboratory - Chemistry and C hemistry - challengeOrdered By: Dr. Brown on 10-23-2022 CO2 [Moles/Vol] 32.0 mmol/L 21.0-32.[address] [facility] Natriuretic peptide B (Bld) [Mass/Vol] 182.2 pg/mL 0-[address] [facility] Urea nitrogen/Creatinine [Mass ratio] 13.0 mg/mg 10-[address] [facility] Laboratory - Hematology and Cell countsOrdered By: Dr. Brown on 10-23-2022 Erythrocyte distribution width (RBC) [Entitic vol] 46.1 fL 35.1-43.[address] [facility] Erythrocyte distribution width (RBC) [Ratio] 14.1 % 11.6-14.[address] [facility] Immature granulocytes/100 WBC (Bld) 0.300 % 0.0-0.[address] [facility] Comment on above: IG% - Immature Granu locytes (promyelocytes, myelocytes and metamyelocytes) > 1% indicates that a LEFT SHIFT is Present. MCH (RBC) [Entitic mass] 28.4 pg 27.0-32.[address] [facility] Nucleated RBC/100 WBC (Bld) [Ratio] 0 % 0-[address] [facility] MCHC Auto (RBC) [Mass/Vol]Or dered By: Dr. Brown on 10-23-2022 MCHC (RBC) [Mass/Vol] 31.7 g/dL 32-36 [facility] No Panel InformationOrdered By: Dr. Brown on 10-23-2022 Troponin I High Sensitivity 14 pg/mL 3.0-78.[address] [facility] Comment on above: Please Note: New Faye t Units and Gender Specific Reference Ranges. For more information see Policy Stat Procedure [place] High Sensitivity Troponin (TNIH) and attachments. Estimated Creatinine Clearance Calc 104.04 ml/min [facility] Estimated GFR (MDRD) Amer 123 mL/min >[address] [facility] Comment on above: GFR Calc Estimated GFR (MDRD) Non-Af Amer 102 mL/min >[address] [facility] Comment on above: Non- GFR Calc Platelets bldOrdered By: Dr. Brown on 10-23-2022 Platelets (Bld) [#/Vol] 234 10*3/uL 150-[address] [facility] Serum or plasma calcium scott urement (mass/volume)Ordered By: Dr. Brown on 10-23-2022 Calcium [Mass/Vol] 8.7 mg/dL 8.5-10.1 [facility] Serum or plasma creatinine m easurement (mass/volume)Ordered By: Dr. Brown on 10-23-2022 Creatinine [Mass/Vol] 0.84 mg/dL 0.70-1.30 [facility] Comment on above: The validity of the calculated GFR & GFRAA in patients over 70 years has not been determined. Clinical correlation is essential. Serum or plasma urea nitroge n measurement (mass/volume)Ordered By: Dr. Brown on 10-23-2022 Urea nitrogen [Mass/Vol] 11 mg/dL 7-[address] [facility] Thin prep Papanicolaou smear with manual screeningOrdered By: Dr. Brown on 10-23-2022 Thin prep Papanicolaou smear with manual screening 6 5-[address] [facility] Invasive Cardiology Clinic N oteon 08-24-2021 Invasive Cardiology Clinic Note . [facility] A Division of [facility] Gem Barr M.D., [place] [address] * Reason for VisitFOLLOW UP CHEST PAIN(1) [...] me to participate in your patient's care. It Risk And Assurance Manager Statement: Transcribed for Dr. Barr by LEWIS , entrepreneurship program director. Electronic Signatures: Gem Barr) (Signed 11:31) Authored: Letterhead Option, Reason for Visit, Vital Signs, Allergies/Meds, History of Present Illness, Past Medical, Surgical and Family History, ROS, Physical Exam, Results, Assessment and Plan, It Risk And Assurance Manager Statement Km Phan (Career Development Counselor) (Entered 15:30) Entered: Letterhead Option, Reason for Visit, Vital Signs, Allergies/Meds, History of Pr (more content not included)... Normal News Production Supervisor Services Echocardiogram-Completeon Echocardiogram-Complete Study ID: [id number] [facility] A Division of [address] [address] Name: CARLOS ALBERTO KELLEY JR Study Date: 08/17/2021 07:55 AM BP: 152/92 mmHg Patient Location: [facility] HR: 84 : 1970 Gender: Male [...] mmHg MV P1/2t-pr: 94.6 msec E/LatE': 9.4 \\[id number] [facility]. Invasive Cardiology Clinic N oteon 08-02-2021 Invasive Cardiology Clinic Note . [facility] A Division of [facility] Gem Barr M.D., [place] [address] * Reason for VisitFOLLOW UP CHEST PAIN(1) [...] to con (more content not included)... Normal News Production Supervisor Services [facility] 01-29-2021 ER EMERGENCY ROOM NOTE CHIEF [...] up with his primary care physician and/or anatomy teacher. Normal [facility] GLYCOHEMOGLOBINon 01-06-2021 HbA1c (Bld) [Mass fraction] 6.43 % High 4.60-6.30 [facility] Comment on above: Performed By: #### % A1c #### [facility] [address] [place] [address] SUE Flores MD LIPID PROFILE - FASTINGon Cholesterol [Mass/Vol] 152 mg/dL Normal <=200 [facility] Comment on above: Performed By: #### L IPID #### [facility] [address] [place] [id number] SUE Flores MD Cholesterol in HDL [Mass/Vol] 28 mg/dL Low 40-60 [facility] Comment on above: Performed By: #### L IPID #### [facility] [address] [place] [id number] SUE Flores MD Cholesterol in LDL [Mass/Vol] 85 mg/dL Normal 0-130 [facility] Comment on above: Performed By: #### L IPID #### [facility] [address] [place] [address] SUE Flores MD COMMENT Recommended (Desirable) < 130mg/dL Moderate Risk 130-159 mg/dL High Risk: >/= 130 mg/dL Normal [facility] Comment on above: Performed By: #### L IPID #### [facility] [address] [place] [address] SUE Flores MD Triglyceride [Mass/Vol] 198 mg/dL High <=150 [facility] Comment on above: Performed By: #### L IPID #### [facility] [address] [place] [address] SUE Flores MD RENAL FUNCTION PANELon 01-06 Albumin [Mass/Vol] 4.4 g/dL Normal 3.5-5.0 [facility] Comment on above: Performed By: #### R FP #### [facility] [address] [place] [address] SUE Flores MD Calcium [Mass/Vol] 9.6 mg/dL Normal 8.4-10.2 [facility] Comment on above: Performed By: #### R FP #### [facility] [address] [place] [address] SUE Flores MD Chloride [Moles/Vol] 96 mmol/L Low 98-107 [facility] Comment on above: Performed By: #### R FP #### [facility] [address] [place] [address] SUE Flores MD Creatinine [Mass/Vol] 0.9 mg/dL Normal 0.7-1.3 [facility] Comment on above: Performed By: #### R FP #### [facility] [address] [place], [place] [id number] SUE Flores MD ECO2 29 mmol/L Normal 22-30 [facility] Comment on above: Performed By: #### R FP #### [facility] [address] [place], [place] [id number] SUE Flores MD EGFR-AF VENEZUELAN 109 mL/min/1.73m 2 Normal >=60 [facility] Comment on above: Performed By: #### R FP #### [facility] [address] [place], [place] [id number] SUE Flores MD EGFR-NON AF VENEZUELAN 90 mL/min/1.73 m 2 Normal >=60 [facility] Comment on above: Performed By: #### R FP #### [facility] [address] [place], [place] [id number] SUE Flores MD Glucose [Mass/Vol] 146 mg/dL High 70-99 [facility] Comment on above: Performed By: #### R FP #### [facility] [address] [place] [address] SUE Flores MD Phosphate [Mass/Vol] 4.2 mg/dL Normal 2.5-4.5 [facility] Comment on above: Performed By: #### R FP #### [facility] [address] [place] [address] SUE Flores MD Potassium [Moles/Vol] 4.0 mmol/L Normal 3.5-5.0 [facility] Comment on above: Performed By: #### R FP #### [facility] [address] [place] [address] SUE Flores MD Sodium [Moles/Vol] 136 mmol/L Low 137-145 [facility] Comment on above: Performed By: #### R FP #### [facility] [address] [place], [place] [id number] SUE Flores MD Urea nitrogen [Mass/Vol] 13 mg/dL Normal 9-20 [facility] Comment on above: Performed By: #### R FP #### [facility] [address] [place], [place] [id number] SUE Flores MD CHEST TWO VIEWSon 11-09-2020 [...] DYER MD Date: 11/09/2020 3:55 PM Normal [facility] CBC PLT DIFFon 06-11-2020 BASO # 0.04 10 3/uL Normal 0.00-0.10 [facility] Comment on above: Performed By: #### C BC #### [facility] [address] [place], [place] [id number] SUE Flores MD Basophils/100 WBC (Bld) 0.5 % Normal 0.2-1.0 [facility] Comment on above: Performed By: #### C BC #### [facility] [address] [place], [place] [id number] SUE Flores MD EOS# 0.19 10 3/uL Normal 0.00-0.20 [facility] Comment on above: Performed By: #### C BC #### [facility] [address] [place] [address] SUE Flores MD Eosinophils/100 WBC (Bld) 2.3 % Normal 0.9-2.9 [facility] Comment on above: Performed By: #### C BC #### [facility] [address] [place] [address] SUE Flores MD Erythrocyte distribution width (RBC) [Ratio] 13.4 % Normal 11.5-15.5 [facility] Comment on above: Performed By: #### C BC #### [facility] [address] [place], [place] [id number] SUE Flores MD Hematocrit (Bld) [Volume fraction] 46.5 % Normal 42.0-52.0 [facility] Comment on above: Performed By: #### C BC #### [facility] [address] [place], [place] [id number] SUE Flores MD Hemoglobin (Bld) [Mass/Vol] 16.0 g/dL Normal 14.0-18.0 [facility] Comment on above: Performed By: #### C BC #### [facility] [address] [place] [address] SUE Flores MD IG# 0.04 10 3/uL Normal [facility] Comment on above: Performed By: #### C BC #### [facility] [address] [place] [address] SUE Flores MD IG% 0.5 % Normal [facility] Comment on above: Performed By: #### C BC #### [facility] [address] [place] [address] SUE Flores MD LYMPH# 1.41 10 3/uL Normal 1.30-2.90 [facility] Comment on above: Performed By: #### C BC #### [facility] [address] [place] [address] SUE Flores MD Lymphocytes/100 WBC (Bld) 17.4 % Low 20.5-45.5 [facility] Comment on above: Performed By: #### C BC #### [facility] [address] [place] [address] SUE Flores MD MCH (RBC) [Entitic mass] 30.1 pg Normal 27.0-31.0 [facility] Comment on above: Performed By: #### C BC #### [facility] [address] [place] [address] SUE Flores MD MCHC (RBC) [Mass/Vol] 34.4 g/dL Normal 32.0-36.0 [facility] Comment on above: Performed By: #### C BC #### [facility] [address] [place], [place] [id number] SUE Flores MD MCV (RBC) [Entitic vol] 87.6 fL Normal 80.0-94.0 [facility] Comment on above: Performed By: #### C BC #### [facility] [address] [place] [address] SUE Flores MD MONO# 0.67 10 3/uL Normal 0.30-0.80 [facility] Comment on above: Performed By: #### C BC #### [facility] [address] [place] [address] SUE Flores MD Monocytes/100 WBC (Bld) 8.3 % Normal 5.5-11.7 [facility] Comment on above: Performed By: #### C BC #### [facility] [address] [place], [place] [id number] SUE Flores MD Morphology Rocky (Bld) [Interp] Normal [facility] Comment on above: Performed By: #### C BC #### [facility] [address] [place] [address] SUE Flores MD NEUT# 5.75 10 3/uL High 2.20-4.80 [facility] Comment on above: Performed By: #### C BC #### [facility] [address] [place] [address] SUE Flores MD Neutrophils/100 WBC (Bld) 71.0 % High 43.0-65.0 [facility] Comment on above: Performed By: #### C BC #### [facility] [address] [place] [address] SUE Flores MD NRBC# 0.00 10 3/uL [facility] Comment on above: Performed By: #### C BC #### [facility] [address] [place], [place] [id number] SUE Flores MD Nucleated RBC/100 WBC (Bld) [Ratio] 0.0 % Normal [facility] Comment on above: Performed By: #### C BC #### [facility] [address] [place], [place] [id number] SUE Flores MD Platelet mean volume (Bld) [Entitic vol] 8.4 fL Normal 7.4-10.4 [facility] Comment on above: Performed By: #### C BC #### [facility] [address] [place], [place] [address] SUE Flores MD PLT 221 10 3/uL Normal 130-400 [facility] Comment on above: Performed By: #### C BC #### [facility] [address] [place], [place] [id number] SUE Flores MD RBC 5.31 10 6/uL Normal 4.70-6.10 [facility] Comment on above: Performed By: #### C BC #### [facility] [address] [place], [place] [address] SUE Flores MD WBC 8.10 10 3/uL Normal 4.70-10.80 [facility] Comment on above: Performed By: #### C BC #### [facility] [address] [place], [place] [address] SUE Flores MD CMPon 06-11-2020 Albumin [Mass/Vol] 4.1 g/dL Normal 3.5-5.0 [facility] Comment on above: Performed By: #### C MP #### [facility] [address] [place], [place] [id number] SUE Flores MD ALP [Catalytic activity/Vol] 72 U/L Normal 38-126 [facility] Comment on above: Performed By: #### C MP #### [facility] [address] [place], [place] [id number] SUE Flores MD ALT [Catalytic activity/Vol] 17 U/L Low 21-72 [facility] Comment on above: Performed By: #### C MP #### [facility] [address] [place], [place] [address] SUE Flores MD AST [Catalytic activity/Vol] 21 U/L Normal 17-59 [facility] Comment on above: Performed By: #### C MP #### [facility] [address] [place], [place] [address] SUE Flores MD Bilirubin [Mass/Vol] 0.6 mg/dL Normal 0.2-1.3 [facility] Comment on above: Performed By: #### C MP #### [facility] [address] [place], [place] [address] SUE Flores MD Calcium [Mass/Vol] 8.9 mg/dL Normal 8.4-10.2 [facility] Comment on above: Performed By: #### C MP #### [facility] [address] [place], [place] [address] SUE Flores MD Chloride [Moles/Vol] 99 mmol/L Normal 98-107 [facility] Comment on above: Performed By: #### C MP #### [facility] [address] [place] [address] SUE Flores MD Creatinine [Mass/Vol] 0.7 mg/dL Normal 0.7-1.3 [facility] Comment on above: Performed By: #### C MP #### [facility] [address] [place] [address] SUE Flores MD ECO2 30 mmol/L Normal 22-30 [facility] Comment on above: Performed By: #### C MP #### [facility] [address] [place] [address] SUE Flores MD EGFR-AF VENEZUELAN 146 mL/min/1.73m 2 Normal >=60 [facility] Comment on above: Performed By: #### C MP #### [facility] [address] [place] [address] SUE Flores MD EGFR-NON AF VENEZUELAN 120 mL/min/1.73 m 2 Normal >=60 [facility] Comment on above: Performed By: #### C MP #### [facility] [address] [place] [address] SUE Flores MD Glucose [Mass/Vol] 125 mg/dL High 70-99 [facility] Comment on above: Performed By: #### C MP #### [facility] [address] [place] [address] SUE Flores MD Potassium [Moles/Vol] 3.6 mmol/L Normal 3.5-5.0 [facility] Comment on above: Performed By: #### C MP #### [facility] [address] [place] [address] SUE Flores MD Protein [Mass/Vol] 7.4 g/dL Normal 6.3-8.2 [facility] Comment on above: Performed By: #### C MP #### [facility] [address] [place] [address] SUE Flores MD Sodium [Moles/Vol] 136 mmol/L Low 137-145 [facility] Comment on above: Performed By: #### C MP #### [facility] [address] [place], [place] [address] SUE Flores MD Urea nitrogen [Mass/Vol] 11 mg/dL Normal 9-20 [facility] Comment on above: Performed By: #### C MP #### [facility] [address] [place], [place] [address] SUE Flores MD GLYCOHEMOGLOBINon 06-11-2020 HbA1c (Bld) [Mass fraction] 6.22 % Normal 4.00-6.30 [facility] Comment on above: Performed By: #### % A1c #### [facility] [address] [place], [place] [address] SUE Flores MD LIPID PROFILE - FASTINGon Cholesterol [Mass/Vol] 147 mg/dL Normal <=200 [facility] Comment on above: Performed By: #### L IPID #### [facility] [address] [place], [place] [address] SUE Flores MD Cholesterol in HDL [Mass/Vol] 24 mg/dL Low 40-60 [facility] Comment on above: Performed By: #### L IPID #### [facility] [address] [place], [place] [address] SUE Flores MD Cholesterol in LDL [Mass/Vol] 89 mg/dL Normal 0-130 [facility] Comment on above: Performed By: #### L IPID #### [facility] [address] [place], [place] [address] SUE Flores MD COMMENT Recommended (Desirable) < 130mg/dL Moderate Risk 130-159 mg/dL High Risk: >/= 130 mg/dL Normal [facility] Comment on above: Performed By: #### L IPID #### [facility] [address] [place], [place] [address] SUE Flores MD Triglyceride [Mass/Vol] 167 mg/dL High <=150 [facility] Comment on above: Performed By: #### L IPID #### [facility] [address] [place], [place] [address] SUE Flores MD URIC ACIDon 06-11-2020 Urate [Mass/Vol] 5.6 mg/dL Normal 3.5-8.5 [facility] Comment on above: Performed By: #### U R #### [facility] [address] [place] [id number] SUE Flores MD Vital Signs Date Time Vital Sign Value Performing Clinician Faci lity 12-28-2024 03:50-0400 Body temperature 97.5 [degF] Girma Correa [employer] Work Phone: [facility] 12-28-2024 03:50-0400 Diastolic blood pressure 80 mm[Hg] Girma Correa [employer] Work Phone: [facility] 12-28-2024 03:50-0400 Heart rate 112 /min Girma Correa [employer] Work Phone: [facility] 12-28-2024 03:50-0400 Respiratory rate 18 /min Girma Correa [employer] Work Phone: [facility] 12-28-2024 03:50-0400 SaO2% (BldA) [Mass fraction] 96 % Girma Correa [employer] Work Phone: [facility] 12-28-2024 03:50-0400 Systolic blood pressure 104 mm[Hg] Girma Correa [employer] Work Phone: [facility] 12-28-2024 00:44-0400 Inhaled oxygen flow rate 4 L/min Girma Correa [employer] Work Phone: [facility] 12-27-2024 23:19-0400 Body height 175.26 cm Girma Correa [employer] Work Phone: [facility] 12-27-2024 23:19-0400 Body mass index (BMI) [Ratio] 46.7 kg/m2 Girma Correa [employer] Work Phone: [facility] 12-27-2024 23:19-0400 Body weight 143.42 kg Girma Correa [employer] Work Phone: [facility] 12-21-2024 12:18-0400 Body temperature 97.9 [degF] Girma Correa [employer] Work Phone: [facility] 12-21-2024 12:18-0400 Diastolic blood pressure 76 mm[Hg] Girma Correa [employer] Work Phone: [facility] 12-21-2024 12:18-0400 Heart rate 70 /min Girma Correa [employer] Work Phone: [facility] 12-21-2024 12:18-0400 Respiratory rate 16 /min Girma Correa [employer] Work Phone: [facility] 12-21-2024 12:18-0400 SaO2% (BldA) [Mass fraction] 98 % Girma Correa [employer] Work Phone: [facility] 12-21-2024 12:18-0400 Systolic blood pressure 137 mm[Hg] Girma Correa [employer] Work Phone: [facility] 12-21-2024 08:26-0400 Inhaled oxygen flow rate 2 L/min Girma Correa [employer] Work Phone: [facility] 12-21-2024 03:14-0400 Body mass index (BMI) [Ratio] 45.8 kg/m2 Girma Correa [employer]C Work Phone: [facility] 12-21-2024 03:14-0400 Body weight 140.6 kg Girma Correa [employer]C Work Phone: [facility] 12-20-2024 21:02-0400 Body height 175.26 cm Girma Correa [employer]C Work Phone: [facility] 12-20-2024 19:58-0400 Body temperature 98.2 [degF] Girma Correa [employer] Work Phone: [facility] 12-20-2024 19:58-0400 Diastolic blood pressure 64 mm[Hg] Girma Correa [employer] Work Phone: [facility] 12-20-2024 19:58-0400 Heart rate 72 /min Girma Correa [employer] Work Phone: [facility] 12-20-2024 19:58-0400 Respiratory rate 16 /min Girma Correa [employer] Work Phone: [facility] 12-20-2024 19:58-0400 SaO2% (BldA) [Mass fraction] 97 % Girma Correa [employer] Work Phone: [facility] 12-20-2024 19:58-0400 Systolic blood pressure 137 mm[Hg] Girma Correa [employer] Work Phone: [facility] 12-20-2024 15:51-0400 Body mass index (BMI) [Ratio] 47.1 kg/m2 Girma Correa [employer] Work Phone: [facility] 12-20-2024 15:51-0400 Body weight 144.7 kg Girma Correa [employer] Work Phone: [facility] 12-20-2024 14:00-0400 Inhaled oxygen flow rate 2 L/min Girma Correa [employer] Work Phone: [facility] 12-20-2024 13:05-0400 Body height 175.26 cm Girma Correa [employer] Work Phone: [facility] 12-20-2024 03:00-0400 Diastolic blood pressure 82 mm[Hg] Girma Correa [employer] Work Phone: [facility] 12-20-2024 03:00-0400 Heart rate 61 /min Girma Correa [employer] Work Phone: [facility] 12-20-2024 03:00-0400 Respiratory rate 17 /min Girma Correa [employer]ATION [employer] Work Phone: [facility] 12-20-2024 03:00-0400 Systolic blood pressure 126 mm[Hg] Girma Sunny [employer]C Work Phone: [facility] 12-20-2024 02:36-0400 Body temperature 98.2 [degF] Girma Sunny [employer] Work Phone: [facility] 12-19-2024 22:20-0400 Body height 175.26 cm Girma Sunny [employer] Work Phone: [facility] 12-19-2024 22:20-0400 Body mass index (BMI) [Ratio] 47.5 kg/m2 Girma Sunny [employer]ATION [employer]ATE-[employer] Work Phone: [facility] 12-19-2024 22:20-0400 Body weight 146.1 kg Girma Sunny [employer]ATION [employer]ATE-[employer] Work Phone: [facility] 10-04-2024 21:13-0400 Reason For Taking VItal Signs DR ROBERT SCHMITZ MD [facility] 10-04-2024 19:37-0400 Heart rate 71 /min DR ROBERT Walls [facility] 10-04-2024 19:37-0400 Reason For Taking VItal Signs DR ROBERT SCHMITZ MD [facility] 10-04-2024 19:37-0400 Respiratory rate 18 /min DR ROBERT Walls [facility] 10-04-2024 19:14-0400 Heart rate 66 /min DR ROBERT Walls [facility] 10-04-2024 19:14-0400 Blood Pressure Cuff Size DR ROBERT SCHMITZ MD [facility] 10-04-2024 19:14-[address] ROBERT SCHMITZ MD [facility] 10-04-2024 19:14-[address] ROBERT SCHMITZ MD [address] [place] [address] 10-04-2024 19:14-0400 Body temperature 97.7 [degF] DR ROBERT Walls [address] [place] [address] 10-04-2024 19:14-0400 Diastolic Blood Pressure Non-Invasive 90 mm[Hg] DR ROBERT SCHMITZ MD [address] [place] [address] 10-04-2024 19:14-0400 Reason For Taking VItal Signs DR ROBERT SCHMITZ MD [address] [place] [address] 10-04-2024 19:14-0400 Respiratory rate 16 /min DR ROBERT Walls [address] [place] [address] 10-04-2024 19:14-0400 Systolic Blood Pressure Non-Invasive 138 mm[Hg] DR ROBERT SCHMITZ MD [address] [place] [address] 10-04-2024 16:28-0400 Heart rate 72 /min DR ROBERT Walls [address] [place] [address] 10-04-2024 15:31-0400 Heart rate 72 /min DR ROBERT Walls [address] [place] [address] 10-04-2024 15:31-04[address] Blood Pressure Cuff Size DR ROBERT SCHMITZ MD [address] [place] [address] 10-04-2024 15:31-[address] ROBERT SCHMITZ MD [address] [place] [address] 10-04-2024 15:31-[address] ROBERT SCHMITZ MD [address] [place] [address] 10-04-2024 15:31-0400 Body temperature 97.52 [degF] DR ROBERT Walls [address] [place] [address] 10-04-2024 15:31-0400 Diastolic Blood Pressure Non-Invasive 72 mm[Hg] DR ROBERT SCHMITZ MD [address] [place] [address] 10-04-2024 15:31-0400 Respiratory rate 16 /min DR ROBERT Walls [address] [place] [address] 10-04-2024 15:31-0400 Systolic Blood Pressure Non-Invasive 120 mm[Hg] DR ROBERT SCHMITZ MD [address] [place] [address] 10-04-2024 15:02-0400 Blood Pressure Cuff Size DR ROBERT SCHMITZ MD [address] [place] [address] 10-04-2024 15:02-[address] ROBERT SCHMITZ MD [address] [place] [address] 10-04-2024 15:02-[address] ROBERT SCHMITZ MD [address] [place] [address] 10-04-2024 15:02-0400 Body temperature 97.88 [degF] DR ROBERT Walls [address] [place] [address] 10-04-2024 15:02-0400 Diastolic Blood Pressure Non-Invasive 78 mm[Hg] DR ROBERT SCHMITZ MD [address] [place] [address] 10-04-2024 15:02-0400 Heart rate 73 /min DR ROBERT Walls [address] [place] [address] 10-04-2024 15:02-0400 Systolic Blood Pressure Non-Invasive 116 mm[Hg] DR ROBERT SCHMITZ MD [address] [place] [address] 10-04-2024 11:59-0400 Heart rate 61 /min DR ROBERT Walls [address] [place] [address] 10-04-2024 07:54-0400 Heart rate 66 /min DR ROBERT Walls [address] [place] [address] 10-04-2024 07:46-0400 Heart rate 64 /min DR ROBERT Walls [address] [place] [address] 10-03-2024 16:05-0400 Heart rate 74 /min DR ROBERT Walls [facility] 10-02-2024 06:28-0400 Body height 177.[address] ROBERT Walls [facility] 10-02-2024 06:28-0400 Body weight 140.[address] ROBERT Walls [facility] 10-02-2024 06:28-0400 Body weight 44.38 kg/m2 DR ROBERT Walls [facility] 10-02-2024 05:00-0400 Diastolic Blood Pressure Non-Invasive 68 mm[Hg] DELORES DURESKA DO [facility] 10-02-2024 05:00-0400 Heart rate 116 /min DELORES DURESKA DO [facility] 10-02-2024 05:00-0400 Systolic Blood Pressure Non-Invasive 108 mm[Hg] DELORES DURESKA DO [facility] 10-02-2024 04:00-0400 Diastolic Blood Pressure Non-Invasive 70 mm[Hg] DELORES DURESKA DO [facility] 10-02-2024 04:00-0400 Heart rate 125 /min DELORES DURESKA DO [facility] 10-02-2024 04:00-0400 Systolic Blood Pressure Non-Invasive 101 mm[Hg] DELORES DURESKA DO [facility] 10-02-2024 02:31-0400 Body weight 143 kg DELORES DURESKA DO [facility] 10-02-2024 02:15-0400 Diastolic Blood Pressure Non-Invasive 90 mm[Hg] DELORES DURESKA DO [facility] 10-02-2024 02:15-0400 Heart rate 120 /min DELORES VOKA DO [facility] 10-02-2024 02:15-0400 Respiratory rate 18 /min DELORES VOKA DO [facility] 10-02-2024 02:15-0400 Systolic Blood Pressure Non-Invasive 106 mm[Hg] DELORES BARROSOESKA DO [facility] 10-02-2024 00:27-0400 Body temperature 98.06 [degF] DELORES MURO DO [facility] 02-01-2024 16:08-0400 Heart rate 72 /min CINDY HERNANDEZ MD [facility] 02-01-2024 15:25-0400 Heart rate 68 /min CINDY HERNANDEZ MD [facility] 02-01-2024 15:25-0400 Respiratory rate 18 /min CINDY HERNANDEZ MD [facility] 02-01-2024 14:44-0400 Body temperature 98.6 [degF] CINDY HERNANDEZ MD [facility] 02-01-2024 14:44-0400 Diastolic Blood Pressure Non-Invasive 82 mm[Hg] CINDY HERNANDEZ MD [facility] 02-01-2024 14:44-0400 Heart rate 72 /min CINDY HERNANDEZ MD [facility] 02-01-2024 14:44-0400 Respiratory rate 18 /min CINDY HERNANDEZ MD [facility] 02-01-2024 14:44-0400 Systolic Blood Pressure Non-Invasive 119 mm[Hg] CINDY HERNANDEZ MD [facility] 02-01-2024 11:12-0400 Body temperature 98.24 [degF] CINDY HERNANDEZ MD [facility] 02-01-2024 11:12-0400 Diastolic Blood Pressure Non-Invasive 72 mm[Hg] CINDY HERNANDEZ MD [facility] 02-01-2024 11:12-0400 Heart rate 82 /min CINDY HERNANDEZ MD [facility] 02-01-2024 11:12-0400 Reason For Taking VItal Signs CINDY HERNANDEZ MD [facility] 02-01-2024 11:12-0400 Respiratory rate 18 /min CINDY HERNANDEZ MD [facility] 02-01-2024 11:12-0400 Systolic Blood Pressure Non-Invasive 101 mm[Hg] CINDY HERNANDEZ MD [facility] 02-01-2024 09:16-0400 Heart rate 79 /min CINDY HERNANDEZ MD [facility] 02-01-2024 09:04-0400 Blood Pressure Cuff Size CINDY HERNANDEZ MD [facility] 02-01-2024 09:04-0400 Blood Pressure Location CINDY HERNANDEZ MD [facility] 02-01-2024 09:04-0400 Blood Pressure Method CINDY HERNANDEZ MD [facility] 02-01-2024 09:04-0400 Body temperature 98.96 [degF] CNIDY HERNANDEZ MD [facility] 02-01-2024 09:04-0400 Diastolic Blood Pressure Non-Invasive 64 mm[Hg] CINDY HERNANDEZ MD [facility] 02-01-2024 09:04-0400 Heart rate 84 /min CINDY HERNANDEZ MD [facility] 02-01-2024 09:04-0400 Reason For Taking VItal Signs CINDY HERNANDEZ MD [facility] 02-01-2024 09:04-0400 Systolic Blood Pressure Non-Invasive 105 mm[Hg] CINDY HERNANDEZ MD [facility] 02-01-2024 07:04-0400 Heart rate 60 /min CINDY HERNANDEZ MD [facility] 02-01-2024 03:35-0400 Heart rate 80 /min CINDY HERNANDEZ MD [facility] 02-01-2024 03:35-0400 Mean blood pressure 73 mm[Hg] CINDY HERNANDEZ MD [facility] 02-01-2024 03:35-0400 Reason For Taking VItal Signs CINDY HERNANDEZ MD [facility] 01-31-2024 23:23-0400 Heart rate 84 /min CINDY HERNANDEZ MD [facility] 01-31-2024 23:23-0400 Mean blood pressure 74 mm[Hg] CINDY HERNANDEZ MD [facility] 01-31-2024 18:38-0400 Mean blood pressure 79 mm[Hg] CINDY HERNANDEZ MD [facility] 01-31-2024 02:56-0400 Body height 175 cm CINDY HERNANDEZ MD [facility] 01-31-2024 02:56-0400 Body weight 149.1 kg CINDY HERNANDEZ MD [facility] 01-31-2024 02:56-0400 Body weight 48.69 kg/m2 CINDY HERNANDEZ MD [facility] 01-31-2024 01:18-[address] SAMY JONES MD [facility] 01-31-2024 01:18-[address] SAMY JONES MD [facility] 01-31-2024 01:18-0400 Diastolic Blood Pressure Non-Invasive 71 mm[Hg] DR SAMY JONES MD [facility] 01-31-2024 01:18-0400 Heart rate 90 /min DR SAMY JONES MD [facility] 01-31-2024 01:18-0400 Mean blood pressure 82 mm[Hg] DR SAMY JONES MD [facility] 01-31-2024 01:18-0400 Reason For Taking VItal Signs DR SAMY JONES MD [facility] 01-31-2024 01:18-0400 Respiratory rate 18 /min DR SAMY JONES MD [facility] 01-31-2024 01:18-0400 Systolic Blood Pressure Non-Invasive 111 mm[Hg] DR SAMY JONES MD [facility] 01-31-2024 01:07-[address] SAMY JOENS MD [facility] 01-31-2024 01:07-[address] SAMY JONES MD [facility] 01-31-2024 01:07-0400 Diastolic Blood Pressure Non-Invasive 61 mm[Hg] DR SAMY JONES MD [facility] 01-31-2024 01:07-0400 Heart rate 85 /min DR SAMY JONES MD [facility] 01-31-2024 01:07-0400 Mean blood pressure 71 mm[Hg] DR SAMY JONES MD [facility] 01-31-2024 01:07-0400 Reason For Taking VItal Signs DR SAMY JONES MD [facility] 01-31-2024 01:07-0400 Respiratory rate 12 /min DR SAMY JONES MD [facility] 01-31-2024 01:07-0400 Systolic Blood Pressure Non-Invasive 90 mm[Hg] DR SAMY JONES MD [facility] 01-31-2024 00:58-[address] SAMY JONES MD [facility] 01-31-2024 00:58-[address] SAMY JONES MD [facility] 01-31-2024 00:58-0400 Diastolic Blood Pressure Non-Invasive 64 mm[Hg] DR SAMY JONES MD [facility] 01-31-2024 00:58-0400 Heart rate 89 /min DR SAMY JONES MD [facility] 01-31-2024 00:58-0400 Mean blood pressure 76 mm[Hg] DR SAMY JONES MD [facility] 01-31-2024 00:58-0400 Reason For Taking VItal Signs DR SAMY JONES MD [facility] 01-31-2024 00:58-0400 Respiratory rate 13 /min DR SAMY JONES MD [facility] 01-31-2024 00:58-0400 Systolic Blood Pressure Non-Invasive 97 mm[Hg] DR SAMY JONES MD [facility] 01-30-2024 20:22-0400 SaO2% (BldA) [Mass fraction] 88.8 % DR SAMY JONES MD [facility] 01-30-2024 20:15-0400 Body height 175.[address] SAMY JONES MD [facility] 01-30-2024 20:15-0400 Body temperature 99.32 [degF] DR SAMY JONES MD [facility] 01-30-2024 20:15-0400 Body weight 145.[address] SAMY JONES MD [facility] 01-30-2024 20:15-0400 Heart rate 133 /min DR SAMY JONES MD [facility] 08-09-2023 21:07-0400 Blood Pressure Cuff Size DR OLLIE BROOKE MD [facility] 08-09-2023 21:07-[address] OLLIE BROOKE MD [facility] 08-09-2023 21:07-[address] OLLIE BROOKE MD [facility] 08-09-2023 21:07-0400 Body height 177.[address] OLLIE BROOKE MD [facility] 08-09-2023 21:07-0400 Body temperature 96.98 [degF] DR OLLIE BROOKE MD [facility] 08-09-2023 21:07-0400 Body weight 155.[address] OLLIE BROOKE MD [facility] 08-09-2023 21:07-0400 Diastolic Blood Pressure Non-Invasive 78 mm[Hg] DR OLLIE BROOKE MD [facility] 08-09-2023 21:07-0400 Heart rate 70 /min DR OLLIE BROOKE MD [facility] 08-09-2023 21:07-0400 Reason For Taking VItal Signs DR OLLIE BROOKE MD [facility] 08-09-2023 21:07-0400 Respiratory rate 22 /min DR OLLIE BROOKE MD [facility] 08-09-2023 21:07-0400 Systolic Blood Pressure Non-Invasive 121 mm[Hg] DR OLLIE BROOKE MD [facility] 06-13-2023 01:18-0500 Diastolic Blood Pressure Non-Invasive 78 mm[Hg] DEMI HUSTON MD [facility] 06-13-2023 01:18-0500 Heart rate 80 /min DEMI HUSTON MD [facility] 06-13-2023 01:18-0500 Respiratory rate 18 /min DEMI HUSTON MD [facility] 06-13-2023 01:18-0500 Systolic Blood Pressure Non-Invasive 142 mm[Hg] DEMI HUSTON MD [facility] 06-13-2023 00:35-0500 Heart rate 74 /min DEMI HUSTON MD [facility] 06-13-2023 00:35-0500 Respiratory rate 20 /min DEMI HUSTON MD [facility] 06-13-2023 00:03-0500 Body temperature 97.7 [degF] DEMI HUSTON MD [facility] 06-13-2023 00:03-0500 Diastolic Blood Pressure Non-Invasive 84 mm[Hg] DEMI HUSTON MD [facility] 06-13-2023 00:03-0500 Heart rate 67 /min DEMI HUSTON MD [facility] 06-13-2023 00:03-0500 Respiratory rate 20 /min DEMI HUSTON MD [facility] 06-13-2023 00:03-0500 Systolic Blood Pressure Non-Invasive 153 mm[Hg] DEMI HUSTON MD [facility] 06-09-2023 21:35-0500 Heart rate 60 /min MOY WATTS MD [facility] 06-09-2023 21:35-0500 Reason For Taking VItal Signs MOY WATTS MD [address] 06-09-2023 21:35-0500 Respiratory rate 18 /min MOY WATTS MD [address] [place] [address] 06-09-2023 19:40-0500 Blood Pressure Cuff Size MOY WATTS MD [facility] 06-09-2023 19:40-0500 Blood Pressure Location MOY WATTS MD [facility] 06-09-2023 19:40-0500 Blood Pressure Method MOY WATTS MD [facility] 06-09-2023 19:40-0500 Body temperature 98.24 [degF] MOY WATTS MD [address] [place] [address] 06-09-2023 19:40-0500 Diastolic Blood Pressure Non-Invasive 66 mm[Hg] MOY WATTS MD [address] [place] [address] 06-09-2023 19:40-0500 Heart rate 63 /min MOY WATTS MD [address] [place] [address] 06-09-2023 19:40-0500 Reason For Taking VItal Signs MOY WATTS MD [address] [place] [address] 06-09-2023 19:40-0500 Respiratory rate 18 /min MOY WATTS MD [address] [place] [address] 06-09-2023 19:40-0500 Systolic Blood Pressure Non-Invasive 112 mm[Hg] MOY WATTS MD [address] [place] [address] 06-09-2023 19:29-0500 Heart rate 63 /min MOY WATTS MD [address] [place] [address] 06-09-2023 16:56-0500 Heart rate 66 /min MOY WATTS MD [address] [place] [address] 06-09-2023 16:04-0500 Blood Pressure Cuff Size MOY WATTS MD [address] [place] [address] 06-09-2023 16:04-0500 Blood Pressure Location MOY WATTS MD [address] [place] [address] 06-09-2023 16:04-0500 Blood Pressure Method MOY WATTS MD [address] [place] [address] 06-09-2023 16:04-0500 Body temperature 97.88 [degF] MOY WATTS MD [address] [place] [address] 06-09-2023 16:04-0500 Diastolic Blood Pressure Non-Invasive 78 mm[Hg] MOY WATTS MD [address] [place] [address] 06-09-2023 16:04-0500 Reason For Taking VItal Signs MOY WATTS MD [address] [place] [address] 06-09-2023 16:04-0500 Respiratory rate 18 /min MOY WATTS MD [address] [place] [address] 06-09-2023 16:04-0500 Systolic Blood Pressure Non-Invasive 138 mm[Hg] MOY WATTS MD [address] [place] [address] 06-09-2023 11:17-0500 Blood Pressure Cuff Size MOY WATTS MD [address] [place] [address] 06-09-2023 11:17-0500 Blood Pressure Location MOY WATTS MD [address] [place] [address] 06-09-2023 11:17-0500 Blood Pressure Method MOY WATTS MD [address] [place] [address] 06-09-2023 11:17-0500 Body temperature 97.88 [degF] MOY WATTS MD [address] [place] [address] 06-09-2023 11:17-0500 Diastolic Blood Pressure Non-Invasive 64 mm[Hg] MOY WATTS MD [address] [place] [address] 06-09-2023 11:17-0500 Systolic Blood Pressure Non-Invasive 126 mm[Hg] MOY WATTS MD [address] [place] [address] 06-09-2023 08:54-0500 Heart rate 66 /min MOY WATTS MD [address] [place] [address] 06-08-2023 23:49-0500 Mean blood pressure 77 mm[Hg] MOY WATTS MD [facility] 06-08-2023 17:50-0500 Heart rate 65 /min MOY WATTS MD [address] 06-08-2023 14:06-0500 Heart rate 58 /min MOY WATTS MD [address] [place] [address] 06-08-2023 07:05-0500 Mean blood pressure 90 mm[Hg] MOY WATTS MD [address] [place] [address] 06-07-2023 13:36-0500 Body height 176 cm MOY WATTS MD [address] [place] [address] 06-07-2023 13:36-0500 Body weight 152.9 kg MOY WATTS MD [address] 06-07-2023 13:36-0500 Body weight 49.36 kg/m2 OMY WATTS MD [facility] 05-05-2023 20:50-0500 Diastolic Blood Pressure Non-Invasive 79 mm[Hg] DEMI HUSTON MD [facility] 05-05-2023 20:50-0500 Heart rate 84 /min DEMI HUSTON MD [facility] 05-05-2023 20:50-0500 Respiratory rate 20 /min DMEI HUSTON MD [facility] 05-05-2023 20:50-0500 Systolic Blood Pressure Non-Invasive 132 mm[Hg] DEMI HUSTON MD [facility] 05-05-2023 17:16-0500 Body height 175.3 cm DEMI HUSTON MD [facility] 05-05-2023 17:16-0500 Body temperature 97.88 [degF] DEMI HUSTON MD [facility] 05-05-2023 17:16-0500 Body weight 144.4 kg DEMI HUSTON MD [facility] 05-05-2023 17:16-0500 Diastolic Blood Pressure Non-Invasive 88 mm[Hg] DEMI HUSTON MD [facility] 05-05-2023 17:16-0500 Heart rate 68 /min DEMI HUSTON MD [facility] 05-05-2023 17:16-0500 Respiratory rate 20 /min DEMI HUSTON MD [facility] 05-05-2023 17:16-0500 Systolic Blood Pressure Non-Invasive 142 mm[Hg] DEMI HUSTON MD [facility] 02-12-2023 07:06-0400 Body height 175.26 cm [facility] 02-12-2023 07:06-0400 Body mass index (BMI) [Ratio] 49.5 kg/m2 [facility] 02-12-2023 07:06-0400 Body temperature 97.8 [degF] [facility] 02-12-2023 07:06-0400 Body weight 152.1 kg [facility] 02-12-2023 07:06-0400 Diastolic blood pressure 101 mm[Hg] [facility] 02-12-2023 07:06-0400 Heart rate 98 /min [facility] 02-12-2023 07:06-0400 Respiratory rate 16 /min [facility] 02-12-2023 07:06-0400 SaO2% (BldA) [Mass fraction] 95 % [facility] 02-12-2023 07:06-0400 Systolic blood pressure 132 mm[Hg] [facility] 12-23-2022 07:51-0400 Diastolic Blood Pressure Non-Invasive 68 1 MOY WATTS MD [address] [place] [address] 12-23-2022 07:51-0400 Heart rate 61 /min MOY WATTS MD [address] [place] [address] 12-23-2022 07:51-0400 Respiratory rate 12 /min MOY WATTS MD [address] [place] [address] 12-23-2022 07:51-0400 Systolic Blood Pressure Non-Invasive 106 1 MOY WATTS MD [address] [place] [address] 12-23-2022 07:39-0400 Diastolic Blood Pressure Non-Invasive 60 1 MOY WATTS MD [address] 12-23-2022 07:39-0400 Heart rate 64 /min MOY WATTS MD [address] 12-23-2022 07:39-0400 Respiratory rate 20 /min MOY WATTS MD [address] [place] [address] 12-23-2022 07:39-0400 Systolic Blood Pressure Non-Invasive 97 1 MOY WATTS MD [address] [place] [address] 12-23-2022 07:34-0400 Diastolic Blood Pressure Non-Invasive 59 1 MOY WATTS MD [address] [place] [address] 12-23-2022 07:34-0400 Heart rate 62 /min MOY WATTS MD [address] [place] [address] 12-23-2022 07:34-0400 Respiratory rate 16 /min MOY WATTS MD [facility] 12-23-2022 07:34-0400 Systolic Blood Pressure Non-Invasive 74 1 MOY WATTS MD [facility] 12-23-2022 07:24-0400 Body temperature 97.34 [degF] MOY WATTS MD [address] [place] [address] 12-23-2022 07:20-0400 Heart rate 73 /min MOY WATTS MD [address] [place] [address] 12-23-2022 07:20-0400 Respiratory Rate - Anes 22 br/min MOY WATTS MD [address] [place] [address] 12-23-2022 07:15-0400 Heart rate 91 /min MOY WATTS MD [facility] 12-23-2022 07:15-0400 Respiratory Rate - Anes 18 br/min MOY WATTS MD [facility] 12-23-2022 06:37-0400 Body height 175.3 cm MOY WATTS MD [facility] 12-23-2022 06:34-0400 Body height 175.3 cm MOY WATTS MD [address] [place] [address] 12-23-2022 06:34-0400 Body temperature 95.54 [degF] MOY WATTS MD [address] [place] [address] 12-23-2022 06:34-0400 Body weight 144 kg MOY WATTS MD [facility] 10-27-2022 06:49-0400 Body temperature 97.7 [degF] DR OLLIE BROOKE MD [facility] 10-27-2022 06:49-0400 Diastolic Blood Pressure Non-Invasive [address] OLLIE BROOKE MD [facility] 10-27-2022 06:49-0400 Heart rate 103 /min DR OLLIE BROOKE MD [facility] 10-27-2022 06:49-0400 Respiratory rate 22 /min DR OLLIE BROOKE MD [facility] 10-27-2022 06:49-0400 Systolic Blood Pressure Non-Invasive [address] OLLIE BROOKE MD [facility] 10-27-2022 06:14-0400 Body temperature 98.06 [degF] DR OLLIE BROOKE MD [facility] 10-27-2022 06:14-0400 Diastolic Blood Pressure Non-Invasive [address] OLLIE BROOKE MD [facility] 10-27-2022 06:14-0400 Heart rate 105 /min DR OLLIE BROOKE MD [facility] 10-27-2022 06:14-0400 Respiratory rate 22 /min DR OLLIE BROOKE MD [facility] 10-27-2022 06:14-0400 Systolic Blood Pressure Non-Invasive [address] OLLIE BROOKE MD [facility] 10-27-2022 05:05-0400 Body height 175.[address] OLLIE BROOKE MD [facility] 10-27-2022 05:05-0400 Body temperature 98.06 [degF] DR OLLIE BROOKE MD [facility] 10-27-2022 05:05-0400 Body weight [address] OLLIE BROOKE MD [facility] 10-27-2022 05:05-0400 Diastolic Blood Pressure Non-Invasive [address] OLLIE BROOKE MD [facility] 10-27-2022 05:05-0400 Heart rate 88 /min DR OLLIE BROOKE MD [facility] 10-27-2022 05:05-0400 Respiratory rate 22 /min DR OLLIE BROOKE MD [facility] 10-27-2022 05:05-0400 Systolic Blood Pressure Non-Invasive [address] OLLIE BROOKE MD [facility] 10-25-2022 01:00-0400 Heart rate 99 /min DEMI HUSTON MD [facility] 10-25-2022 01:00-0400 Systolic Blood Pressure Non-Invasive 139 1 DEMI HUSTON MD [facility] 10-25-2022 00:00-0400 Diastolic Blood Pressure Non-Invasive 94 1 DEMI HUSTON MD [facility] 10-25-2022 00:00-0400 Heart rate 102 /min DEMI HUSTON MD [facility] 10-25-2022 00:00-0400 Respiratory rate 18 /min DEMI HUSTON MD [facility] 10-25-2022 00:00-0400 Systolic Blood Pressure Non-Invasive 132 1 DEMI HUSTON MD [facility] 10-24-2022 23:21-0400 Body height 175.3 cm DEMI HUSTON MD [facility] 10-24-2022 23:21-0400 Body temperature 98.24 [degF] DEMI HUSTON MD [facility] 10-24-2022 23:21-0400 Body weight 139 kg DEMI HUSTON MD [facility] 10-24-2022 23:21-0400 Diastolic Blood Pressure Non-Invasive 99 1 DEMI HUSTON MD [facility] 10-24-2022 23:21-0400 Heart rate 105 /min DEMI HUSTON MD [facility] 10-24-2022 23:21-0400 Respiratory rate 19 /min DEMI HUSTON MD [facility] 10-24-2022 23:21-0400 Systolic Blood Pressure Non-Invasive 146 1 DEMI HUSTON MD [facility] 10-23-2022 10:51-0400 Diastolic blood pressure 76 mm[Hg] [facility] 10-23-2022 10:51-0400 Heart rate 73 /min [facility] 10-23-2022 10:51-0400 Respiratory rate 15 /min [facility] 10-23-2022 10:51-0400 SaO2% (BldA) [Mass fraction] 98 % [facility] 10-23-2022 10:51-0400 Systolic blood pressure 148 mm[Hg] [facility] 10-23-2022 05:58-0400 Body height 175.26 cm [facility] 10-23-2022 05:58-0400 Body mass index (BMI) [Ratio] 47.7 kg/m2 [facility] 10-23-2022 05:58-0400 Body temperature 97.6 [degF] [facility] 10-23-2022 05:58-0400 Body weight 146.8 kg [facility] 07-15-2022 21:40-0500 Diastolic Blood Pressure Non-Invasive 85 1 JEREMIE MCCORMACK MD [facility] 07-15-2022 21:40-0500 Heart rate 72 /min JEREMIE MCCORMACK MD [facility] 07-15-2022 21:40-0500 Respiratory rate 18 /min JEREMIE MCCORMACK MD [facility] 07-15-2022 21:40-0500 Systolic Blood Pressure Non-Invasive 148 1 JEREMIE MCCORMACK MD [facility] 07-15-2022 21:10-0500 Reason For Taking VItal Signs JEREMIE MCCORMACK MD [facility] 07-15-2022 20:42-0500 Body temperature 98.06 [degF] JEREMIE MCCORMACK MD [facility] 07-15-2022 20:42-0500 Diastolic Blood Pressure Non-Invasive 95 1 JEREMIE MCCORMACK MD [facility] 07-15-2022 20:42-0500 Heart rate 81 /min JEREMIE MCCORMACK MD [facility] 07-15-2022 20:42-0500 Respiratory rate 18 /min JEREMIE MCCORMACK MD [facility] 07-15-2022 20:42-0500 Systolic Blood Pressure Non-Invasive 149 1 JEREMIE MCCORMACK MD [facility] 07-11-2022 08:21-0500 Body height 175.3 cm MALORIE PEGUERO MD [facility] 07-11-2022 08:21-0500 Body temperature 97.7 [degF] MALORIE PEGUERO MD [facility] 07-11-2022 08:21-0500 Body weight 148.6 kg MALORIE PEGUERO MD [facility] 07-11-2022 08:21-0500 Diastolic Blood Pressure Non-Invasive 80 1 MALORIE PEGUERO MD [facility] 07-11-2022 08:21-0500 Heart rate 88 /min MALORIE PEGUERO MD [facility] 07-11-2022 08:21-0500 Respiratory rate 24 /min MALORIE PEGUERO MD [facility] 07-11-2022 08:21-0500 Systolic Blood Pressure Non-Invasive 150 1 MALORIE PEGUERO MD [facility] Encounters Encounter Date Encounter Type Care Provider Facility Start: 12-28-2024 Evaluation and management of inpatient Dr. Keagan Rowe DO -[facility] Work Phone: Start: 12-23-2024 End: 12-26-2024 Evaluation and management of inpatient GIRMA CORREA APRN-SHAWN Facility:A Start: 12-21-2024 Non-patient / Non-visit Dr. Farzad Camilo MD -[facility] Work Phone: Start: 12-20-2024 End: 12-21-2024 ambulatory Yaz Dee Facility:[facility] Start: 12-20-2024 End: 12-21-2024 Evaluation and management of inpatient Dr. Yaz Dee MD -[facility] Work Phone: Start: 12-20-2024 End: 12-21-2024 observation encounter Girma Correa MERCHANDISE PRESENTATION ASSOCIATE-C Work Phone: -[facility] Start: 12-20-2024 ambulatory Austin Estrada Facility:[facility] Start: 12-20-2024 Non-patient / Non-visit Dr. Austin Estrada MD -[facility] Start: 12-19-2024 End: 12-20-2024 Emergency department patient visit Girma Correa [employer]CH[employer]ISE PRESENTATION ASSOCIATE-C Work Phone: -Emergency Department Work Phone: Start: 12-10-2024 End: 12-13-2024 Evaluation and management of inpatient DELORES MURO DO [facility] Start: 12-04-2024 End: 12-04-2024 Emergency department patient visit JEREMIE MCCORMACK MD [facility] Start: 11-24-2024 End: 11-28-2024 Evaluation and management of inpatient DR SONNY MAX MD [facility] Start: 11-24-2024 End: 11-24-2024 Emergency department patient visit CIRILO PATEL DO [facility] Start: 11-06-2024 ambulatory Dolly Carreoni ty:[facility] Start: 11-06-[address] Dolly Marino MD -[facility] Start: 11-04-2024 End: 11-04-2024 ambulatory Girma Correa NP Facility:[facility] Start: 11-04-2024 End: 11-04-[address] Dolly Marino MD -[facility] Start: 11-04-[address] Dolly Marino MD -[facility] Start: 10-30-2024 ambulatory Dolly Carreoni ty:[facility] Start: 10-30-[address] Dolly Marino MD -[facility] Start: 10-28-2024 ambulatory Dolly HOLCOMB Facili ty:[facility] Start: 10-28-[address] Dolly Marino MD -[facility] Start: 10-24-2024 ambulatory Dolly Nathanesperanza [place] Facili ty:[facility] Start: 10-24-[address] Dolly Marino MD -[facility] Start: 10-16-2024 End: 10-23-2024 Evaluation and management of inpatient NANI QUINTANA DO [facility] Start: 10-16-2024 End: 10-16-2024 Emergency department patient visit JAKE Guo [facility] Start: 10-02-2024 End: 10-04-2024 Evaluation and management of inpatient DR ROBERT SCHMITZ MD [facility] Start: 10-02-2024 End: 10-02-2024 Emergency department patient visit DELORES JINA DO [facility] Start: 09-05-2024 ambulatory GIRMA CORREA [employer] BLENDER-MONUMENT SETTER HELPER Facility:[facility] Start: 08-29-2024 End: 08-29-2024 Emergency department patient visit GIRMA CORREA [employer]ENDER-MONUMENT SETTER HELPER Facility:[facility] Start: 08-27-2024 End: 08-27-2024 ambulatory GIRMA CORREA [employer] BLENDER-MONUMENT SETTER HELPER [facility] Start: 08-13-2024 End: 08-13-2024 Emergency department patient visit DR WILNER JOE MD Facility:[facility] Start: 05-14-2024 End: 05-14-2024 ambulatory GIRMA CORREA [employer]ER-MONUMENT SETTER HELPER [facility] Start: 05-14-2024 End: 05-14-2024 Patient encounter procedure GIRMA CORREA [employer] BLENDER-MONUMENT SETTER HELPER [facility] Start: 03-25-2024 ambulatory GIRMA CORREA [employer] BLENDER-MONUMENT SETTER HELPER Facility[facility] Start: 03-25-2024 End: 03-29-2024 ambulatory GIRMA CORREA [employer] BLENDER-MONUMENT SETTER HELPER Facility:[facility] Start: 03-25-2024 End: 03-29-2024 Outreach Lab HELEN YANES [employer] BLENDER-MONUMENT SETTER HELPER [facility] Start: 02-16-2024 End: 02-16-2024 ambulatory GIRMA CORREA [employer]ER-MONUMENT SETTER HELPER Facility:[facility] Start: 02-16-2024 End: 02-16-2024 Patient encounter procedure GIRMA CORREA [employer]ER-MONUMENT SETTER HELPER [facility] Start: 02-12-2024 End: 02-12-2024 ambulatory GIRMA CORREA [employer]ENDER-MONUMENT SETTER HELPER Facility:[facility] Start: 02-12-2024 End: 02-12-2024 Patient encounter procedure GIRMA CORREA [employer]ER-MONUMENT SETTER HELPER [facility] Start: 01-31-2024 End: 02-01-2024 Evaluation and management of inpatient GIRMA CORREA Facility:[facility] Start: 01-30-2024 End: 01-31-2024 Emergency department patient visit DR SAMY JONES MD [facility] Start: 10-11-2023 End: 10-11-2023 ambulatory [facility] Start: 08-22-2023 End: 08-22-2023 ambulatory GIRMA CORREA Facility:[facility] Start: 08-22-2023 End: 08-22-2023 Patient encounter procedure GIRMA CORREA [employer]-MONUMENT SETTER HELPER [facility] Start: 08-09-2023 End: 08-09-2023 Emergency department patient visit DR OLLIE BROOKE MD [facility] Start: 08-08-2023 End: 08-12-2023 ambulatory GIRMA CORREA Facility:[facility] Start: 08-08-2023 End: 08-12-2023 Outreach Lab GIRMA CORREA [employer]ER-MONUMENT SETTER HELPER [facility] Start: 08-08-2023 End: 08-08-2023 ambulatory GIRMA CORREA Facility:[facility] Start: 06-13-2023 End: 06-13-2023 Emergency department patient visit DEMI HUSTON MD [facility] Start: 06-07-2023 End: 06-09-2023 Evaluation and management of inpatient MOY WATTS MD [facility] Start: 05-05-2023 End: 05-05-2023 Emergency department patient visit DEMI HUSTON MD [facility] Start: 05-03-2023 ambulatory JAD Coombs Facility:[facility] Start: 04-03-2023 End: 04-03-2023 ambulatory GIRMA CORREA Facility:[facility] Start: 04-03-2023 End: 04-03-2023 Patient encounter procedure JONNY HOFF [employer] HELPER [facility] Start: 03-22-2023 End: 03-22-2023 ambulatory GIRMA CORREA Facility:[facility] Start: 03-14-2023 ambulatory GIRMA CORREA Facility :[facility] Start: 02-22-2023 ambulatory GIRMA WELLSSON Facility :[facility] Start: 02-12-2023 End: 02-12-2023 [facility] [facility] Work Phone: Start: 02-01-2023 End: 02-01-2023 Patient encounter procedure GIRMA CORREA ASPHALT BLENDER-MONUMENT SETTER HELPER [facility] Start: 12-23-2022 End: 12-23-2022 Minor Procedure MOY WATTS MD [facility] Start: 11-11-2022 End: 11-11-2022 Patient encounter procedure MOY WATTS MD [facility] Start: 10-27-2022 End: 10-27-2022 Emergency department patient visit DR OLLIE BROOKE MD [facility] Start: 10-24-2022 End: 10-25-2022 Emergency department patient visit DEMI HUSTON MD [facility] Start: 10-23-2022 End: 10-23-2022 Emergency department patient visit [facility] Start: 07-15-2022 End: 07-15-2022 Emergency department patient visit JEREMIE MCCORMACK MD [facility] Start: 07-11-2022 End: 07-11-2022 Emergency department patient visit MALORIE PEGUERO MD [facility] Start: 07-05-2022 End: 07-05-2022 ambulatory [facility] Start: 04-12-2022 End: 04-12-2022 ambulatory [facility] Start: 03-11-2022 ambulatory [facility] Facility: [facility] Start: 01-12-2022 End: 01-12-2022 ambulatory [facility] Start: 08-24-2021 ambulatory [facility] y [facility] Services Start: 08-17-2021 End: 08-18-[address] [facility] Start: 08-02-2021 ambulatory [facility] Procedures Date Procedure Procedure Detail Performing Clinician Start: 12-27-2024 Plain chest X-ray Aura Correa MERCHANDISE PRESENTATION ASSOCIATE-C Work Phone: Start: 12-27-2024 Estimated creatinine clearance Girma Correa MERCHANDISE PRESENTATION ASSOCIATE-C Work Phone: Start: 12-21-2024 Estimated creatinine clearance Girma Correa MERCHANDISE PRESENTATION ASSOCIATE-C Work Phone: Start: 12-20-2024 Estimated creatinine clearance Girma Correa MERCHANDISE PRESENTATION ASSOCIATE-C Work Phone: Start: 12-20-2024 Plain x-ray of hand Gracie ky Correa MERCHANDISE PRESENTATION ASSOCIATE-C Work Phone: Start: 12-20-2024 CT angiography of ch est with contrast Girma Correa MERCHANDISE PRESENTATION ASSOCIATE-C Work Phone: Start: 12-19-2024 Plain chest X-ray Aura Correa MERCHANDISE PRESENTATION ASSOCIATE-C Work Phone: Start: 12-19-2024 D-dimer assay, quantitative Girma Correa MERCHANDISE PRESENTATION ASSOCIATE-C Work Phone: Comment on above: D-Dimer ELEVATED (>0 .49): Additional studies and clinicalassessments are indicated to conclude diagnosis of:Deep Vein Thrombosis (DVT) or Pulmonary Embolism (PE)CRITICAL VALUE CALLED TO [id number]/25/25 0020 Marquez Swain.RESULTS READ BACK BY SAME. Start: 12-19-2024 Estimated creatinine clearance Girma Correa MERCHANDISE PRESENTATION ASSOCIATE-C Work Phone: Start: 10-28-2024 Vitamin D, 25-hydrox y measurement Girma Correa MERCHANDISE PRESENTATION ASSOCIATE-C Work Phone: Comment on above: Vitamin D StatusDefi ciency: <20 ng/mL (50nmol/L)Insufficiency: 20-30 ng/mL (50-75 nmol/L)Sufficiency: 30-100 ng/mL (75-250 nmol/L)Toxicity: >100 ng/mL (>250 nmol/L) Start: 03-25-2024 Claudia BALDERAS APRN-MONUMENT SETTER HELPER Comment on above: excision of multilob ulated lipomatous mass right forearm Start: 01-31-2024 Echocardiography CHUN CORREA ASPHALT BLENDER-MONUMENT SETTER HELPER Start: 02-12-2023 SARS-CoV-2 & FLU Ant igen (Rapid) Start: 02-12-2023 Viral antigen assay Start: 02-12-2023 Plain chest X-ray Start: 12-23-2022 Cardioversion JAD WATTS MD Start: 11-11-2022 Echocardiography JONNY KAVYA ASPHALT BLENDER-MONUMENT SETTER HELPER Comment on above: 1. Left ventricle: T [...] Treatment Date Care Activity Detail Author Start: 12-28-2024 Thyroid stimulating hormone measurement [facility] Start: 12-28-2024 Verification routine [facility] Start: 12-28-2024 Admission procedure [facility] Start: 12-28-2024 Hospital admission, emergency, from emergency room, medical nature [facility] Start: 12-28-2024 [facility] Start: 12-21-2024 [address] therapy [facility] Start: 12-21-2024 Patient discharge [facility] Start: 12-21-2024 Inhalation therapy procedure [facility] Start: 12-20-2024 Assessment of risk o f venous thromboembolism [facility] Start: 12-20-2024 Care regimes management [facility] Start: 12-20-2024 Consultation [facility] Start: 12-20-2024 Elevation of affected extremity [facility] Start: 12-20-2024 Insertion of cathete r into peripheral vein [facility] Start: 12-20-2024 Measuring intake and output [facility] Start: 12-20-2024 Notification of physician [facility] Start: 12-20-2024 Providing care accor ding to standard [facility] Start: 12-20-2024 Provision of activity privileges [facility] Start: 12-20-2024 Referral to occupati onal therapist [facility] Start: 12-20-2024 Referral to service [facility] Start: 12-20-2024 End: 12-20-2024 [facility] Start: 12-20-2024 Following clinical p athway protocol [facility] Start: 12-20-2024 Verification routine [facility] Start: 12-20-2024 Admission procedure [facility] Start: 12-20-2024 Hospital admission, emergency, from emergency room, medical nature [facility] Start: 12-20-2024 Elevation of affected extremity [facility] Start: 12-20-2024 [facility] Start: 12-20-2024 [facility] Start: 12-20-2024 Patient referral to dietitian [facility] Start: 12-19-2024 [facility] Start: 10-23-2022 [facility] Bilirubin measurement, urine [facility] Hemoglobin [Presence] in Urine [facility] Magnesium measurement [facility] Measurement of keton es in urine using dipstick [facility] Microscopic urinalysis [facility] Patient Education [facility] Work Phone: Patient referral [facility] Work Phone: pH of Urine [facility] Specific gravity of Urine [facility] Troponin T.cardiac [ Mass/volume] in Serum or Plasma by High sensitivity method [facility] Urine blood test [facility] Urine dipstick for glucose [facility] Urine dipstick for l eukocyte esterase [facility] Urine dipstick for nitrite [facility] Urine dipstick for protein [facility] Urine examination [facility] Urine microscopy: ep ithelial cells [facility] Urine Microscopy: white cells [facility] Urobilinogen [Presence] in Urine [facility] Immunizations Immunization Date Immunization Notes Care Provider Fa cility 04-12-2022 influenza virus vaccine, unspecified formulation MOY WATTS MD [facility] Comment on above: Result Comment: 2023: VIS DATE: 01/01/2021 04-12-2022 pneumococcal conjugate vaccine, 13 valent MOY WATTS MD [facility] Comment on above: Result Comment: 2023: VIS DATE: 07/02/2021 09-11-2020 SARS-CoV-2 (COVID-19 ) mRNA-1273 vaccine MOY WATTS MD [facility] 08-14-2020 SARS-CoV-2 (COVID-19 ) mRNA-1273 vaccine MOY WATTS MD [facility] Payers Date Payer Category Payer Self-pay 2024 Medicaid [id number] 2024 Private Health Insurance 5e [id number] 2023 Medicaid [id number] 1970 Unknown [id number] 2.16.8 40.1.930680.3.579.2.1076 1971 Unknown [id number] 2.16. 840.1.845987.3.579.2.297 1971 Unknown [id number] 2.16.8 40.1.539378.3.579.2.627 1971 Unknown [id number] 2.16.8 40.1.121030.3.579.2.627 1971 Unknown [id number] 2.16.8 40.1.227883.3.579.2.627 1971 Unknown [id number] 2.16.8 40.1.197712.3.579.2.627 1971 Unknown [id number] 2.16.8 40.1.894197.3.579.2.627 1971 Unknown [id number] 2.16.8 40.1.273874.3.579.2.7 1971 Unknown [id number] 2.16.8 40.1.097620.3.579.2.7 1971 Unknown [id number] 2.16.8 40.1.727719.3.579.2.7 1971 Unknown [id number] 2.16.8 40.1.859750.3.579.2.627 1971 Unknown [id number] 2.16.8 40.1.862710.3.579.2.7 1971 Unknown [id number] 2.16.8 40.1.759216.3.579.2.627 1971 Unknown [id number] 2.16.8 40.1.875365.3.579.2.627 1971 Unknown [id number] 2.16.8 40.1.680212.3.579.2.627 1971 Unknown [id number] 2.16.8 40.1.921443.3.579.2.627 1971 Unknown [id number] 2.16.8 40.1.978038.3.579.2.651 1971 Unknown [id number] 2.16. 840.1.146389.3.579.2.627 1971 Unknown [id number] 2.16. 840.1.899875.3.579.2. 1971 Unknown [id number] 2.16. 840.1.010794.3.579.2. 1971 Unknown [id number] 2.16.8 40.1.748655.3.579.2. 1971 Unknown [id number] 2.16.8 40.1.619745.3.579.2. 1971 Unknown [id number] 2.16.8 40.1.408984.3.579.2. 1971 Unknown [id number] 2.16.8 40.1.315031.3.579.2. 1971 Unknown [id number] 2.16.8 40.1.321876.3.579.2. 1971 Unknown [id number] 2.16.8 40.1.044623.3.579.2. 1971 Unknown [id number] 2.16.8 40.1.520441.3.579.2. 1971 Unknown [id number] 2.16.8 40.1.788193.3.579.2. 1971 Unknown [id number] 2.16.8 40.1.967325.3.579.2. 1971 Unknown [id number] 2.16.8 40.1.915730.3.579.2. 1971 Unknown [id number] 2.16.8 40.1.258509.3.579.2. 1971 Unknown [id number] 2.16. 840.1.675162.3.579.2. 1971 Unknown [id number] 2.16. 840.1.423958.3.579.2. 1971 Unknown [id number] 2.16. 840.1.770421.3.579.2.627 1971 Unknown [id number] 2.16.8 40.1.436622.3.579.2.627 1971 Unknown [id number] 2.16.8 40.1.165523.3.579.2.627 Unknown [id number] Unknown [id number] 2.16.8 40.1.158709.3.579.2.443 Unknown [id number] 2.16.8 40.1.630069.3.579.2.462 Unknown [id number] 2.16.8 40.1.856006.3.579.2.462 Unknown [id number] 2.16.8 40.1.527827.3.579.2.462 Unknown [id number] 2.16.8 40.1.863786.3.579.2.462 Unknown [id number] 2.16.8 40.1.586827.3.579.2.462 Unknown [id number] 2.16.8 40.1.476494.3.579.2.462 Unknown [id number] 2.16.8 40.1.205053.3.579.2.462 Unknown [id number] 2.16.8 40.1.578445.3.579.2.462 Unknown [id number] 2.16.8 40.1.546491.3.579.2.462 Unknown [id number] 2.16.8 40.1.699866.3.579.2.462 Unknown [id number] 2.16.8 40.1.281252.3.579.2.462 Social History Date Type Detail Facility Start: 07-11-2022 End: 12-27-2024 Tobacco smoking status Ex-smoker (finding) [facility] Start: 1970 Sex Assigned At Male A [facility] Start: 10-23-2022 End: 02-12-2023 Tobacco smoking status NHIS Unknown if ever smoked [facility] Tobacco Nicotine Use: sn uff. Type: Oral (Snuff, Chew). [facility] Comment on above: using NicoDerm patch Stopped chewing snuf f October 2022 Tobacco smoking status [facility] Start: 06-07-2023 End: 08-08-2023 Tobacco smoking status Former smokeless tobacco user, quit more than 30 days ago [facility] Start: 07-11-2022 Sex Male (finding) [facility] Medical Equipment Procedure Code Equipment Code Equipment Origin al Text Equipment Identifier Dates See Instructions , 1 bottle of 100 Test once daily, # 1 EA, 11 Refill(s), Pharmacy: [facility], 177.8, cm, 11/28/23 13:54:00 EDT, Height, 151.4, kg, 11/28/23 13:54:00 EDT, Dosing Weight Start: 12-12-2023 See Instructions , qs 1 month supply Test once daily, # 1 EA, 11 Refill(s), Pharmacy: [facility], 177.8, cm, 11/28/23 13:54:00 EDT, Height, 151.4, kg, 11/28/23 13:54:00 EDT, Dosing Weight Start: 12-12-2023 See Instructions , 1 bottle of 100 Test once daily, # 1 EA, 11 Refill(s), Pharmacy: [facility], 177.8, cm, 11/28/23 13:54:00 EDT, Height, 151.4, kg, 11/28/23 13:54:00 EDT, Dosing Weight Start: 12-12-2023 See Instructions , qs 1 month supply Test once daily, # 1 EA, 11 Refill(s), Pharmacy: [facility], 177.8, cm, 11/28/23 13:54:00 EDT, Height, 151.4, kg, 11/28/23 13:54:00 EDT, Dosing Weight Start: 12-12-2023 See Instructions , 1 bottle of 100 Test once daily, # 1 EA, 11 Refill(s), Pharmacy: [facility], 177.8, cm, 11/28/23 13:54:00 EDT, Height, 151.4, kg, 11/28/23 13:54:00 EDT, Dosing Weight Start: 12-12-2023 See Instructions , qs 1 month supply Test once daily, # 1 EA, 11 Refill(s), Pharmacy: [facility], 177.8, cm, 11/28/23 13:54:00 EDT, Height, 151.4, kg, 11/28/23 13:54:00 EDT, Dosing Weight Start: 12-12-2023 See Instructions , 1 bottle of 100 Test once daily, # 1 EA, 11 Refill(s), Pharmacy: [facility], 177.8, cm, 11/28/23 13:54:00 EDT, Height, 151.4, kg, 11/28/23 13:54:00 EDT, Dosing Weight Start: 12-12-2023 See Instructions , qs 1 month supply Test once daily, # 1 EA, 11 Refill(s), Pharmacy: [facility], 177.8, cm, 11/28/23 13:54:00 EDT, Height, 151.4, kg, 11/28/23 13:54:00 EDT, Dosing Weight Start: 12-12-2023 See Instructions , 1 bottle of 100 Test once daily, # 1 EA, 11 Refill(s), Pharmacy: [facility], 177.8, cm, 11/28/23 13:54:00 EDT, Height, 151.4, kg, 11/28/23 13:54:00 EDT, Dosing Weight Start: 12-12-2023 See Instructions , qs 1 month supply Test once daily, # 1 EA, 11 Refill(s), Pharmacy: [facility], 177.8, cm, 11/28/23 13:54:00 EDT, Height, 151.4, kg, 11/28/23 13:54:00 EDT, Dosing Weight Start: 12-12-2023 See Instructions , 1 bottle of 100 Test once daily, # 1 EA, 11 Refill(s), Pharmacy: [facility], 177.8, cm, 11/28/23 13:54:00 EDT, Height, 151.4, kg, 11/28/23 13:54:00 EDT, Dosing Weight Start: 12-12-2023 See Instructions , qs 1 month supply Test once daily, # 1 EA, 11 Refill(s), Pharmacy: [facility], 177.8, cm, 11/28/23 13:54:00 EDT, Height, 151.4, kg, 11/28/23 13:54:00 EDT, Dosing Weight Start: 12-12-2023 Extremity Lead Refiner al Fixator Application L Unknown 10/17/24 Unknown Unknown FDA Start: 10-17-2024 Extremity Lead Refiner al Fixator Application L Unknown 10/17/24 Unknown Unknown FDA Start: 10-17-2024 Extremity Lead Refiner al Fixator Application L Unknown 10/17/24 Unknown Unknown FDA Start: 10-17-2024 Extremity Lead Refiner al Fixator Application L Unknown 10/17/24 Unknown Unknown FDA Start: 10-17-2024 Extremity Lead Refiner al Fixator Application L Unknown 10/17/24 Unknown Unknown FDA Start: 10-17-2024 Extremity Lead Refiner al Fixator Application L Unknown 10/17/24 Unknown Unknown FDA Start: 10-17-2024 Extremity Lead Refiner al Fixator Application L Unknown 10/17/24 Unknown Unknown FDA Start: 10-17-2024 Extremity Lead Refiner al Fixator Application L Unknown 10/17/24 Unknown Unknown FDA Start: 10-17-2024 Extremity Lead Refiner al Fixator Application L Unknown 10/17/24 Unknown Unknown FDA Start: 10-17-2024 Extremity Lead Refiner al Fixator Application L Unknown 10/17/24 Unknown Unknown FDA Start: 10-17-2024 Extremity Lead Refiner al Fixator Application L Unknown 10/17/24 Unknown Unknown FDA Start: 10-17-2024 Extremity Lead Refiner al Fixator Application L Unknown 10/17/24 Unknown Unknown FDA Start: 10-17-2024 Extremity Lead Refiner al Fixator Application L Unknown 10/17/24 Unknown Unknown FDA Start: 10-17-2024 Extremity Lead Refiner al Fixator Application L Unknown 10/17/24 Unknown Unknown FDA Start: 10-17-2024 Extremity Lead Refiner al Fixator Application L Unknown 10/17/24 Unknown Unknown FDA Start: 10-17-2024 Extremity Lead Refiner al Fixator Application L Unknown 10/17/24 Unknown Unknown FDA Start: 10-17-2024 Extremity Lead Refiner al Fixator Application L Unknown 10/17/24 Unknown Unknown FDA Start: 10-17-2024 Extremity Lead Refiner al Fixator Application L Unknown 10/17/24 Unknown Unknown FDA Start: 10-17-2024 Extremity Lead Refiner al Fixator Application L Unknown 10/17/24 Unknown Unknown FDA Start: 10-17-2024 Extremity Lead Refiner al Fixator Application L Unknown 10/17/24 Unknown Unknown FDA Start: 10-17-2024 Extremity Lead Refiner al Fixator Application L Unknown 10/17/24 Unknown Unknown FDA Start: 10-17-2024 Extremity Lead Refiner al Fixator Application L Unknown 10/17/24 Unknown Unknown FDA Start: 10-17-2024 Extremity Lead Refiner al Fixator Application L Unknown 10/17/24 Unknown Unknown FDA Start: 10-17-2024 Extremity Lead Refiner al Fixator Application L Unknown 10/17/24 Unknown Unknown FDA Start: 10-17-2024 Extremity Lead Refiner al Fixator Application L Unknown 10/17/24 Unknown Unknown FDA Start: 10-17-2024 Extremity Lead Refiner al Fixator Application L Unknown 10/17/24 Unknown Unknown FDA Start: 10-17-2024 Extremity Lead Refiner al Fixator Application L Unknown 10/17/24 Unknown Unknown FDA Start: 10-17-2024 Extremity Lead Refiner al Fixator Application L Unknown 10/17/24 Unknown Unknown FDA Start: 10-17-2024 Extremity Lead Refiner al Fixator Application L Unknown 10/17/24 Unknown Unknown FDA Start: 10-17-2024 Extremity Lead Refiner al Fixator Application L Unknown 10/17/24 Unknown Unknown FDA Start: 10-17-2024 Extremity Lead Refiner al Fixator Application L Unknown 10/17/24 Unknown Unknown FDA Start: 10-17-2024 Extremity Lead Refiner al Fixator Application L Unknown 10/17/24 Unknown Unknown FDA Start: 10-17-2024 Extremity Lead Refiner al Fixator Application L Unknown 10/17/24 Unknown Unknown FDA Start: 10-17-2024 Extremity Lead Refiner al Fixator Application L Unknown 10/17/24 Unknown Unknown FDA Start: 10-17-2024 Extremity Lead Refiner al Fixator Application L Unknown 10/17/24 Unknown Unknown FDA Start: 10-17-2024 Extremity Lead Refiner al Fixator Application L Unknown 10/17/24 Unknown Unknown FDA Start: 10-17-2024 Functional Status Date Assessment Result Facility 12-21-2024 Functional status Activity Abili ty Unable to Assess [facility] Work Phone: 10-04-2024 Functional Status Room located n ear nursing station, Door open, Bathroom light on, Non-Slip footwear, Room check performed [facility] 10-04-2024 Functional [facility] 10-04-2024 Functional Status [facility] 10-04-2024 Functional Status Breakfast Percent 80 [facility] 10-04-2024 [facility] 10-03-2024 Functional Status Sequential Com pression Device bilateral knee high removed/off [facility] 10-02-2024 Functional Status ID band on, Call device within reach, Bed in low position [facility] 02-01-2024 Functional Status Room check performed [facility] 02-01-2024 Functional Status [facility] 02-01-2024 Functional Status [facility] 02-01-2024 Functional Status Maintained [facility] 01-31-2024 Functional Status [facility] 01-31-2024 Functional Status 7pm-7am [facility] 01-31-2024 Functional Status Living Situati on Lives with family [facility] 01-31-2024 Functional Status Skin Care Prev entative Intervention(s) heel(s)s elevated, padded oxygen tubing, turn and position system [facility] 01-31-2024 Functional Status [facility] 01-31-2024 Functional Status Independent [facility] 01-30-2024 Functional Status Standard Safet y ID band on, Call device within reach, Bed in low position, Wheels locked, Upper/Half-Length side-rails up, personal items within reach, Bedside Cart Locked, Visitor at bedside [facility] 08-09-2023 Functional Status Awake, Resting [facility] 06-13-2023 Functional Status ID band on, Call device within reach [facility] 06-09-2023 Functional Status Room check performed [facility] 06-09-2023 [facility] 06-09-2023 Functional Status [facility] 06-08-2023 Functional Status Home independe ntly, Lives with significant other [facility] 06-08-2023 Functional Status Skin Care Prev entative Intervention(s) padded oxygen tubing [facility] 06-08-2023 Functional Status bilateral knee high removed/off [facility] 06-07-2023 Functional Status Sensory Deficits None A [facility] 05-05-2023 Functional Status Assistive Device None A [facility] 05-05-2023 Functional Status Standard Safet y ID band on, Call device within reach, Bed in low position, Wheels locked, Visitor at bedside [facility] 12-23-2022 Functional Status Ambulating in room, Awake [facility] 12-23-2022 Functional Status Maintained [facility] 10-27-2022 Functional Status Room check performed [facility] 10-27-2022 Functional Status [facility] 10-25-2022 Functional Status Independent [facility] 10-24-2022 Functional Status Standard Safet y ID band on, Call device within reach, Bed in low position, Wheels locked, Upper/Half-Length side-rails up, personal items within reach, Visitor at bedside [facility] 07-15-2022 Functional Status Room check performed [facility] 07-11-2022 Functional Status Up ad traci [facility] Mental Status Date Assessment Result Facility 12-28-2024 Cognitive function Awake;Alert;A ppropriate;Follo ws Commands [facility] Work Phone: 12-20-2024 Cognitive function Appropriate;Cooperativ e [facility] Work Phone: 12-19-2024 Cognitive function Voice/Name [facility] Work Phone: 10-04-2024 Mental Status Oriented x 4 [facility] 10-04-2024 Mental Status [facility] 10-04-2024 Mental Status [facility] 10-02-2024 Mental Status Orientation Oriented x 4 [facility] 02-01-2024 Mental Status Orientation Oriented x 4 [facility] 02-01-2024 Mental Status [facility] 01-31-2024 Mental Status [facility] 01-31-2024 Mental Status [facility] 01-30-2024 Mental Status Orientation Oriented x 4 [facility] 08-09-2023 Mental Status Oriented x 4 [facility] 06-13-2023 Mental Status Orientation Oriented x 4 [facility] 06-09-2023 Mental Status Oriented x [address] [facility] 06-09-2023 Mental Status [facility] 06-09-2023 Mental Status [facility] 06-08-2023 Mental Status [facility] 05-05-2023 Mental Status Orientation Oriented x 4 [facility] 05-05-2023 Mental Status [facility] 12-23-2022 Mental Status Oriented x 4 [facility] 10-27-2022 Mental Status Orientation Oriented x 4 [facility] 10-27-2022 Mental Status [facility] 10-25-2022 Mental Status Orientation Oriented x 4 [facility] 10-24-2022 Mental Status [facility] 10-23-2022 Cognitive function Voice/Name [facility] Work Phone: 07-15-2022 Mental Status Oriented x 4 [facility] 07-11-2022 Mental Status Oriented x 4 [facility] Clinical Notes 02-07-2022 to 12-27-2024 Note Date & Type Note Facility 12-27-2024 Radiology Diagnostic study note [facility] Imaging Services [address] [place] [address] Chest 1 View (Portable) MR#: [id number] Acct: [id number] Name: CARLOS ALBERTO KELLEY Jr. Rep #: [id number] : 1970 M 54 From: Fabien Pelaez MD PCP: Dr. Jhonatan Garcia DO Status: REG ER Study:Chest 1 View (Portable) Date of Exam: 12/27/24 Exam# [id number] Ordering Dr: Nguyễn Al DO PROCEDURE: CHEST 1 VIEW (PORTABLE) 12/27/2024 REASON FOR EXAM: SOB TECHNIQUE: Frontal view of the chest. COMPARISON: 12/19/2024 FINDINGS: Devices: Right upper extremity PICC with catheter tip at the superior cavoatrialjunction. Lungs/Pleura: Clear. No pneumothorax or pleural effusion. Heart/Mediastinum: Mild cardiomegaly. Bones/Soft tissues: Within normal limits. RAD/Chest 1 View (Portable) IMPRESSION: No acute cardiopulmonary disease. Reading Location: [id number] CC: Dr. Jhonatan Garcia DO; Dr. Nguyễn Al DO ~ Pcb Designer: Signed [facility] 12-26-2024 Hospital Discharge instructions Patient Education 12/26/2024 15:53:13 Radiology- PICC Line 03/08/2024(CUSTOM) [place] PICC Line Discharge Instructions Interventional Radiology [facility] [address] [place] [address] A PICC (peripherally inserted central catheter) is a half-way IV access device. A catheter is inserted [...] physician to coordinate weekly flushes. Pain Control: Qprw-orq-onuwmel pain medication should be used for pain [...] instruction below: 8:00 am- 5:00 pm call [phone] After 24 hours, contact the physician who ordered this procedure for you. Special Instructions: Follow Up Care 12/23/2024 17:41:25 With:GIRMA CORREA Address: [address] [place] [address]- [phone] When:1-2 days Comments:Please call the office to schedule a hospital follow up appointment. With:MAYRA MARTIN BA, MD, Infectious Disease, Infectious Disease Group Address: [facility] [place] [address] [place] [address] [phone] When:Within 3 Week(s) With:NANI QUINTANA DO, Orthopedic Address: [address] [facility], [place] [address] [phone] When:Within 1 Week(s) Comments:Please call office SARA to schedule follow up appointment in 1 week for repeat XRs and skin check. [facility] 12-26-2024 Note Discharge Instructions Thank you for allowing [facility] to assist you with your healthcare needs. [...] CORREA When:Within 1-2 days Where:[address] [place] [address]- [phone] Additional Information: Please call the office to schedule a hospital follow up appointment. Follow Up with MAYRA MARTIN BA, MD, Infectious Disease, Infectious Disease Group When:In 3 weeks Where:[facility] [place] [address] [address] [phone] Follow Up with NANI QUINTANA DO, Orthopedic When:In 1 week Where:[address] [facility], [place] [address]- [phone] Additional Information: Please call office SARA to [...] Rehab Potential - Ordered -- Rehab potential ortega, 12/26/24 14:46:31 EDT Someone Will Contact You [...] Postoperative pain Duration: 7 Days Pickup at [facility]/pharmacy #[id number] New ceFAZolin (CeFAZolin 2 gm IV Syringe) [...] by mouth Daily at bedtime Pharmacy Information [facility]/pharmacy #[id number]: [address], [place] [phone] What How Much When Comments Stop Taking [...] medication providers or retail pharmacies. 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 A catheter is inserted [...] physician to coordinate weekly flushes. Pain Control: Fpfs-uog-ghkgyim pain medication should be used for pain [...] instruction below: 8:00 am- 5:00 pm call [phone] After 24 hours, contact the physician who ordered this procedure for you. Special Instructions: Additional Information VACCINATE! IT SAVES LIVES! Members of the community who have not yet received the COVID-19 vaccine and would like to receive it can visit one of [facility] vaccine clinics. There are many vaccine clinic locations within the [facility]. For locations and available times, please visit [email or web address] It is important to note that some COVID mobile vaccine clinics are held outdoors and may be canceled in rainy or stormy conditions. To learn more about pediatric vaccinations (ages 5-11), we invite you to visit the [facility] webpage. https://www.[facility].org/page s/4780-Rndwa-Aoasbvuagqq-Frequently -Asked-Questions.html To learn more about the COVID-19 vaccine, we invite you to visit the CDC website for a list of frequently asked questions.https://www.cdc.gov/coron avirus/2019-ncov/vaccines/faq.html [facility] [employer] Patient Portal Access Instructions: Stay connected with your healthcare team and access your personal medical information anytime with the [employer] Patient Portal. Please follow the directions below to create your [employer] account: 1.Access the email account you provided upon registration to the hospital/physician office.2.Look for an invitation email from [facility].3.Open the email and access the invitation link: Accept Invitation to [facility].4.Fill in the required orr to create your account. To access your account, visit [email or web address]. Click the blue button labeled "Access Patient [...] you will allow to register on the [facility] [employer] Patient Portal for access to your information. You can also access the [facility] [employer] Patient Portal on the [facility] frida. Simply click on "Patient Portal" and then log into your account. If you would like to receive a full copy of your medical records, please contact the [facility] Medical Records Department by calling [phone], Monday through Monday between 8 a.m. and [...] Call your local pharmacy or go to http://CreditEase.Helpful Alliance/7Q8Sv6s to find one close to you.3.Make use of household items: Use cat litter or old coffee grounds to dispose medications if other options are not available. Mix your drugs with these household products, seal them in an airtight container and throw it into the garbage. Call [facility]: [phone] to be sure your drugs can be [...] aware that I should contact my doctor. Patient/Medical Sales Consultant Signature: ____ Date/Time: Relationship to Patient: __ Witness Name/Signature: Date/Time: [facility] 12-26-2024 Procedure note VASCULAR ACCESS TEAM [...] Deny Amin RN on 12/26/2024 03:21 PM [facility] 12-26-2024 Discharge summary Date of Service [...] IV antibiotics and faxed to Dr. Marshall [phone]. Allergies Contrast dye Statins myalgia Procedures Date of Service 12/24/2024 Indication/Consent Ray is a 54-year-old male who presented to [facility] ED with right ankle sprain cellulitis and [...] follow-up appointment. Patient was evaluated while in [facility] ED and surgical intervention was recommended to [...] Surgeon(s) ANA LUISA DONOVAN DO (Primary Surgeon) Shake Splitter(s) Suze Mishra DO PGY 2 Adriano Mack DO PGY1 Adriano Brooke DO PGY1 Type of Anesthesia CHANTAL CARTER DO (Yard Switcher) AUGUSTO BANDA APRN-MELTING FURNACE SKIMMER (Provider) Estimated Blood Loss 5 cc Consults [...] needed as needed for low blood sugar. [id number] Milliliter by mouth every 4 hours as [...] Follow Up Follow Up with GIRMA CORREA APRN-SHAWN When:Within 1-2 days Where:[address] [place] [address]- [phone] Additional Information: Please call the office to schedule a hospital follow up appointment. Follow Up with MAYRA MARTIN BA, MD, Infectious Disease, Infectious Disease Group When:In 3 weeks Where:[facility] [place] [address] [phone] Follow Up with NANI QUINTANA DO, Orthopedic When:In 1 week Where:[address] [facility], [place] [phone] Additional Information: Please call office SARA to [...] PERNELL DEWITT MD on 12/26/2024 03:11 PM [facility] 12-26-2024 Note Discharge Instructions Thank you for allowing [facility] to assist you with your healthcare needs. [...] When:Within 1-2 days Where:[address] [facility] [place] [address] [phone] Follow Up with MAYRA MARTIN BA, MD, Infectious Disease, Infectious Disease Group When:In 3 weeks Where:[facility] [place] [address] [place] [address] [phone] Follow Up with NANI QUINTANA DO, Orthopedic When:In 1 week Where:[address] [facility], [place] [phone] Additional Information: Please call office SARA to [...] Postoperative pain Duration: 7 Days Pickup at [facility]/pharmacy #1689 New ceFAZolin (CeFAZolin 2 gm IV Syringe) [...] by mouth Daily at bedtime Pharmacy Information [facility]/pharmacy #4605: [address], [place] [phone] What How Much When Comments Stop Taking [...] to receive it can visit one of [facility] vaccine clinics. There are many vaccine clinic locations within the [facility]. For locations and available times, please visit [email or web address] .[email or web address]/. It is important to note that some COVID mobile vaccine clinics are held outdoors and may be canceled in rainy or stormy conditions. To learn more about pediatric vaccinations (ages 5-11), we invite you to visit the [facility] webpage. https://www.[facility]ings.org/page s/5232-Rgqay-Xuhkwomljzm-Frequently -Asked-Questions.html To learn more about the COVID-19 vaccine, we invite you to visit the CDC website for a list of frequently asked questions.https://www.cdc.gov/coron avirus/2019-ncov/vaccines/faq.html [employer] Patient Portal Access Instructions: Stay connected with your healthcare team and access your personal medical information anytime with the [employer] Patient Portal. Please follow the directions below to create your [employer] account: 1.Access the email account you provided upon registration to the hospital/physician office.2.Look for an invitation email from [facility].3.Open the email and access the invitation link: Accept Invitation to [facility].4.Fill in the required orr to create your account. To access your account, visit [email or web address]. Click the blue button labeled "Access Patient [...] you will allow to register on the [employer] Patient Portal for access to your information. You can also access the [employer] Patient Portal on the [employer] frida. Simply click on "Patient Portal" and then log into your account. If you would like to receive a full copy of your medical records, please contact the [facility] Medical Records Department by calling [phone], Monday through Monday between 8 a.m. and [...] Call your local pharmacy or go to http://CreditEase.Helpful Alliance/8A5Ve4d to find one close to you.3.Make use of household items: Use cat litter or old coffee grounds to dispose medications if other options are not available. Mix your drugs with these household products, seal them in an airtight container and throw it into the garbage. Call [facility]: [phone] to be sure your drugs can be [...] aware that I should contact my doctor. Patient/Medical Sales Consultant Signature: ____ Date/Time: Relationship to Patient: __ Witness Name/Signature: Date/Time: [facility] 12-26-2024 Note Discharge Instructions Thank you for allowing [facility] to assist you with your healthcare needs. [...] When:Within 1-2 days Where:[address] [place] [phone] Follow Up with MAYRA MARTIN BA, MD, Infectious Disease, Infectious Disease Group When:In 3 weeks Where:[facility] [place] [address] [place] [phone] Follow Up with NANI QUINTANA DO, Orthopedic When:In 1 week Where:[address] [facility], [place] [phone] Additional Information: Please call office SARA to [...] Postoperative pain Duration: 7 Days Pickup at [facility]/pharmacy #2970 New ceFAZolin (CeFAZolin 2 gm IV Syringe) [...] by mouth Daily at bedtime Pharmacy Information [facility]/pharmacy #4605: [address], [place] [phone] What How Much When Comments Stop Taking [...] to receive it can visit one of [facility] vaccine clinics. There are many vaccine clinic locations within the [facility]. For locations and available times, please visit [email or web address]://[email or web address] .[email or web address]/. It is important to note that some COVID mobile vaccine clinics are held outdoors and may be canceled in rainy or stormy conditions. To learn more about pediatric vaccinations (ages 5-11), we invite you to visit the [facility] webpage. https://www.[facility].org/page s/1852-Bvlti-Baggubsgoov-Frequently -Asked-Questions.html To learn more about the COVID-19 vaccine, we invite you to visit the CDC website for a list of frequently asked questions.https://www.cdc.gov/coron avirus/2019-ncov/vaccines/faq.html [facility] Patient Portal Access Instructions: Stay connected with your healthcare team and access your personal medical information anytime with the [employer] Patient Portal. Please follow the directions below to create your [employer] account: 1.Access the email account you provided upon registration to the hospital/physician office.2.Look for an invitation email from [facility].3.Open the email and access the invitation link: Accept Invitation to [facility].4.Fill in the required orr to create your account. To access your account, visit [email or web address]. Click the blue button labeled "Access Patient [...] you will allow to register on the [facility] [employer] Patient Portal for access to your information. You can also access the [facility] Patient Portal on the [facility] frida. Simply click on "Patient Portal" and then log into your account. If you would like to receive a full copy of your medical records, please contact the [facility] Medical Records Department by calling [phone], Monday through Monday between 8 a.m. and [...] Call your local pharmacy or go to http://CreditEase.Helpful Alliance/9W9Vt4j to find one close to you.3.Make use of household items: Use cat litter or old coffee grounds to dispose medications if other options are not available. Mix your drugs with these household products, seal them in an airtight container and throw it into the garbage. Call [facility]: [phone] to be sure your drugs can be [...] aware that I should contact my doctor. Patient/Medical Sales Consultant Signature: ____ Date/Time: Relationship to Patient: __ Witness Name/Signature: Date/Time: [facility] 12-26-[address] Dewitt [...] by SHAHEEN Allen on 12/26/2024 11:54 AM [facility] 12-26-[address] Dewitt [...] by SHAHEEN Allen on 12/26/2024 11:54 AM [facility] 12-25-2024 Note Date of Service 12/25/24 [...] fax results to attention Dr. Martin at [phone]. Objective Vitals and Measurements T: 36.7 C [...] surgical intervention. Plan for PICC line and half-way IV antibiotics per ID. He will remain [...] PERNELL DEWITT MD on 12/25/2024 04:09 PM [facility] 12-25-2024 Infectious disease Progress note Date [...] fax results to attention Dr. Martin at [phone]. Please make outpatient follow-up with Dr. Martin [...] by ORI TOMLIN on 12/25/2024 02:20 PM [facility] 12-25-2024 Note . MICRO - Microbiology [...] Locations *1: This test was performed at: [facility], [address] [place] [address], [address] , [facility] 12-25-2024 Note . 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 - Calf soft and non-tender Weight Dosing [...] Digitally Signed by ANA LUISA DONOVAN DO [facility] 12-24-2024 Anesthesiology Consult note Patient: CARLOS [...] CHANTAL WHEATLEY DO on 12/24/2024 06:46 PM [facility] 12-24-2024 Note Exam Date Time Procedure Performing Provider Status 12/24/24 5:26 PM XR Fluoro 1-2 Hrs Tech Time Corin MOLINA MD; Auth (Verified) [id number] ORIGINAL EXAMINATION: SPOT FLUOROSCOPIC IMAGES 12/24/2024 5:26 [...] 3:52:11 AM Ordering Provider: ANA LUISA DONOVAN [id number] Orthopaedic surgery Consult note Date of Service 12/23/24 Reason for Consultation Right ankle surgical site infection Referring Physician Emergency department History of Present Illness Patient is a 54-year-old male presented to [facility] due to purulence coming from his external fixator. Of note, on 10-17-2024 he was treated with close reduction and external fixation with ankle spanning external fixator by Dr. Quintana at [facility]. Patient reports he did attend his [...] FARZAD GIL DO on 12/23/2024 07:38 PM [facility]Jzihghat35-94-9203 Anesthesiology Consult note Patient: CARLOS ALBERTO KELLEY [...] list: Medical Asthma exacerbation / SNOMED CT 6708678509 / Confirmed COPD exacerbation / SNOMED CT 3400210195 / Confirmed Atopic dermatitis / SNOMED CT 64157662 / Confirmed Atypical chest pain / SNOMED CT 380714923 / Confirmed Bacteremia / SNOMED CT 29667230 / Confirmed Morbid obesity with BMI of 40.0-44.9, adult / SNOMED CT 7272949813 / Confirmed Bronchitis / SNOMED CT 65804267 / Confirmed Cardiomyopathy / SNOMED CT 550626746 / Confirmed CHF with cardiomyopathy / SNOMED CT 89032018 / Confirmed Cough / SNOMED CT 62470209 / Confirmed Dental abscess / SNOMED CT 052714611 / Confirmed Depression / SNOMED CT 25131647 / Confirmed Dyspnea / SNOMED CT 281872542 / Confirmed Generalized anxiety disorder / SNOMED CT 33830841 / Confirmed Hypertension associated with type 2 diabetes mellitus / SNOMED CT 0197625858 / Confirmed Insomnia / SNOMED CT 768900378 / Confirmed LVH (left ventricular hypertrophy) / SNOMED CT 40336330 / Confirmed Moderate asthma / SNOMED CT 1967916738 / Confirmed Near syncope / SNOMED CT 7933413802 / Confirmed Chewing tobacco nicotine dependence / SNOMED CT 22012021 / Confirmed KOFFI (obstructive sleep apnea) / SNOMED CT 400832607 / Confirmed Right knee pain / SNOMED CT 7391416770 / Confirmed Paroxysmal atrial fibrillation / SNOMED CT 465470258 / Confirmed Screening for ischemic heart disease / SNOMED CT 882695422 / Confirmed Screening for colon cancer / SNOMED CT 506790831 / Confirmed Statin intolerance / SNOMED CT 9228671424 / Confirmed Tachyarrhythmia / SNOMED CT 85338406 / Confirmed Type 2 diabetes mellitus with hemoglobin A1c goal of less than 7.0% / SNOMED CT 606275699 / Confirmed Type 2 diabetes mellitus with hyperlipidemia / SNOMED CT 047464815 / Confirmed Resolved: Anxiety / SNOMED CT 70626086 Resolved: BMI 45.0-49.9, adult / SNOMED CT 0233815513 Resolved: Diabetes mellitus / SNOMED CT 256537410 Resolved: Hyperlipidemia / SNOMED CT 47362420 Resolved: Hypertension / SNOMED CT 6096709777 Resolved: Mass of arm / SNOMED CT 539155842 Resolved: Morbid obesity / SNOMED CT 971162084 Resolved: Obstructive sleep apnea / SNOMED CT 349612664 Resolved: Prediabetes / SNOMED CT 2042243044 Resolved: Right flank pain / SNOMED CT 160502351 Canceled: (HFpEF) heart failure with preserved ejection fraction / SNOMED CT 0731865866 Canceled: Right otitis media / SNOMED CT 224694228621987 Canceled: Persistent atrial fibrillation / SNOMED CT 1161698896 Canceled: Wheezing / SNOMED CT 44395928, Active Problems (33) Asthma exacerbation Atopic dermatitis [...] Histories Past Medical History: Resolved Morbid obesity (848028855): Resolved. Diabetes mellitus (935890577): Resolved. Hypertension (0370467355): Resolved. BMI 45.0-49.9, adult (8111405694): Resolved. Anxiety (57552517): Resolved. Prediabetes (2139864848): Resolved. Obstructive sleep apnea (682302836): Resolved. Right flank pain (397754279): Resolved. Hyperlipidemia (35114991): Resolved. Mass of arm (951041783): Resolved. Family History: Cancer Father Heart disease Mother Grandparent Stroke Father Procedure history: Excision (661969310) on 03/25/2024 at 53 Years. 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 Cardioversion (818645083) on 12/23/2022 at 52 Years. Echocardiogram (7233393267) on 11/11/2022 at 52 Years. Comments: 03/20/2023 [...] right atrial pressure is 15 mm Hg [facility] (4358510378). Comments: 07/11/2022 8:26 CRISTINO Sinha, SHAHEEN warner [...] Oral37.0 DegC (DEC 24 14:59) Heart Rate Hvytwo77 bpm (DEC 24 08:10) VIG355 mmHg (DEC 24 14:59) DBP70 mmHg (DEC [...] Documentation reviewed: Current records. Assessment and Plan [place] [employer] Anesthesiologists (ASA) physical status classification: [...] CHANTAL WHEATLEY DO on 12/24/2024 04:37 PM [facility] HospitalAkhdbgpb18-18-1334 Note Date of Service 12/24/24 Subjective 54 year old male admitted for infection rt ankle hardware. Cardiac history of dofetilide and anticoagulation. Objective Vitals and Measurements T: 37.0 C (Oral) TMIN: 36.7 C (Oral) TMAX: 37.0 C (Oral) HR: 64 RR: 16 BP: 106/70 SpO2: 90% HT: 175 cm WT: 140 kg BMI: 45.71 Intake and [...] PERNELL DEWITT MD on 12/24/2024 03:54 PM [facility] HospitalRvplluhz80-89-9688 Infectious disease Consult note Date of Service 12/24/2024 Reason for Consultation Right ankle hardware infection Referring Physician Dr. Max History of Present Illness Patient is a 54-year-old male with past medical history of COPD, tobacco abuse, atrial fibrillation, type 2 diabetes, recent right ankle fracture requiring external fixation presents as a transfer from [place] on 12/23/2024 with worsening swelling, redness and [...] make his appointment as he was at [facility]. He states that he did [...] 3.7 BUN: 11.0 Creatinine Lvl (s): 0.98 07/28 20:06 WBC: 8.5 Hgb: 15.5 Hct: 47.5 [...] by ORI TOMLIN on 12/24/2024 03:13 PM [facility] HospitalGpmdnpmb19-73-8669 Infectious disease Consult note Date of Service 12/24/2024 Reason for Consultation Right ankle hardware infection Referring Physician Dr. Max History of Present Illness Patient is a 54-year-old male with past medical history of COPD, tobacco abuse, atrial fibrillation, type 2 diabetes, recent right ankle fracture requiring external fixation presents as a transfer from [place] on 12/23/2024 with worsening swelling, redness and [...] make his appointment as he was at [facility]. He states that he did [...] by ORI TOMLIN on 12/24/2024 03:13 PM [facility] HospitalWdfivtme24-69-4743 Note Date of Service Patient medically optimized [...] PERNELL DEWITT MD on 12/24/2024 07:21 AM [facility] HospitalGuvwoapo06-82-8619 Note. MICRO - Microbiology PROCEDURE: Blood Culture [...] Locations *1: This test was performed at: [facility], [address] [place] [address], [address]- , [facility] [id number] Note. MICRO - Microbiology PROCEDURE: Blood Culture [...] Locations *1: This test was performed at: [facility], [address] [place] [address], [address]- , [facility]07-28-2025 History and physical note [facility]ist History and Physical Date [...] Vitals Signs(Last 24 hrs)__Last Charted Minimum Maximum KTZ600(DEC 23 17:42)132(DEC 23 17:42)132(DEC 23 17:42) DBP83(DEC [...] 27.7 pg (12/23/24 20:06:00) MCHC: 32.5 G/dL (12/23/24:06:00) RDW: 15.1 % (12/23/24:06:00) Platelet: 223 10^3/mcL (12/23/24 20:06:00) MPV: 8 fL (12/23/24:06:00) Monocyte Distribution Width: 21.1 High (12/23/24 20:06:00) [...] SONNY MAX MD on 12/23/2024 09:52 PM [facility]Swwiubcv26-07-8179 Note* Exam Date Time Procedure Performing Provider Status 12/23/24 9:45 PM XR Ankle Minimum 3 Views Right MICK LEGGETT MD; Auth (Verified) [id number] ORIGINAL EXAMINATION: THREE XRAY VIEWS OF THE [...] Sign Date: 12/23/2024 10:04:30 PM Ordering Provider: [facility]07-28-2025 Note* Exam Date Time Procedure Performing Provider Status 12/23/24 9:44 PM XR Ankle Minimum 3 Views Left TRACE FIERRO MD; Auth (Verified) [id number] ORIGINAL EXAMINATION: THREE XRAY VIEWS OF THE [...] Sign Date: 12/23/2024 9:57:26 PM Ordering Provider: [facility]07-28-2025 Note. MICRO - Microbiology PROCEDURE: Blood [...] Locations *1: This test was performed at: [address], [address] [place] [address] [id number] Note. MICRO - Microbiology PROCEDURE: Blood Culture [...] Locations *1: This test was performed at: [address], [address] [place] [address] [id number] Orthopaedic surgery Consult note Date of Service 12/23/24 Reason for Consultation Right ankle surgical site infection Referring Physician Emergency department History of Present Illness Patient is a 54-year-old male presented to [facility] due to purulence coming from his external fixator. Of note, on 10-17-2024 he was treated with close reduction and external fixation with ankle spanning external fixator by Dr. Quintana at [facility]. Patient reports he did attend his [...] FARZAD GIL DO on 12/23/2024 07:38 PM [facility] Evaluation + Plan noteExtracted from: Title:Clinical Document Author:SNONY MAX MD Date:12/23/24 [facility] Hospitalist History and Physical Date [...] Vitals Signs(Last 24 hrs)__Last Charted Minimum Maximum DRR709(DEC 23 17:42)132(DEC 23 17:42)132(DEC 23 17:42) DBP83(DEC [...] Metabolic Panel 08/27/24 * N-Terminal proBNP 08/27/24 [facility] 07-26-2025 Discharge summary [facility] Medical Records Department [address] [place] [address] Transfer to [facility] MR#: [id number] Acct: [id number] Name: CARLOS ALBERTO KELLEY Jr. Rep #:[id number] : 1970 54 From: Farzad mejia MD PCP: Dr. Jhonatan Garcia, DO Status:ADM BRENNA Certification of patient admission REQUIRED AT TIME OF ADMISSION. I CERTIFY THAT POST-HOSPITAL ECF SERVICES ARE REQUIRED TO BE GIVEN ON AN IN-PATIENT BASIS BECAUSE OF THE ABOVE NAMED PATIENT'S NEED FOR RESIDENTIAL CARE ON A CONTINUING BASIS FOR THE CONDITION(S) FOR WHICH HE/SHE WAS RECEIVING IN-PATIENT HOSPITAL SERVICES PRIOR TO HIS/HER TRANSFER TO THE [facility]. 12/21/24 0845 Diet Diet Order/Speech Therapy: INPATIENT [...] tissue disorders Allergies/Procedures Done in Hospital Allergies Joefkjq-FAI-OeO Reductase Inhibitor Allergy (Mild, Verified 12/20/24 13:07) [...] in before D/C Order can be placed): Alf Facility 12/21/24 0845 Cosigner Signature (if applicable): CC: Dr. Yaz Dee MD; Dr. Austin Estrada MD; Dr. Jhonatan Garcia DO ~ [facility]07-26-2025 Discharge summary [facility] Medical Records Department [address] [place] [address] Discharge Summary 12/21/24 1134 MR#: [id number] Acct: [id number] Name: CARLOS ALBERTO KELLEY Jr. Rep #:[id number] : 1970 54 From: Farzad mejia MD PCP: Dr. Jhonatan Garcia DO Status:ADM BRENNA Location: [place] [address] Providers Date of Admission: 12/20/24 Primary Care [...] 31 Hospital Course: Per HPI: CARLOS ALBERTO WARREN, is z04-lqnn-uuz male history of hypertension, gout, cardiomyopathy, GERD, diabetes, depression and anxiety, KOFFI who presented [facility] ED 12/20/2024 for right hand pain, [...] 76.3 H, Lymph % (Auto) 10.6 L, Parmer % (Auto) 10.6 H, Eos % (Auto) [...] (Auto) 68.8, Lymph % (Auto) 15.1 L, Parmer % (Auto) 13.4 H, Eos % (Auto) [...] swelling. No significant bony abnormality Reading Location: [id number] D/C Instructions DC O2, CPAP, BIPAP Needs [...] in before D/C Order can be placed): Alf Facility Charges/Coding Visit Charges Inpatient E&M: 76823 Disch Hosp >30min 12/21/24 1138 Cosigner Signature (if applicable): CC: Dr. Farzad Camilo MD; Dr. Jhonatan Garcia DO~ Signed [facility]07-26-2025 [facility] Medical Records Department [address] [place] [address] Discharge Summary 12/21/24 1134 MR#: [id number] Acct: [id number] Name: WARRENCARLOS ALBERTO Briones Lucian Kelsey Rep #: [id number] : 1970 54 From: Farzad Camilo MD PCP: Dr. Jhonatan Garcia DO Status:ADM BRENNA Location: [place] NN769-0 Providers Date of Admission: 12/20/24 Primary Care [...] Course: Per HPI: CARLOS ALBERTO KELLEY, is p74-rjdh-voc male history of hypertension, gout, cardiomyopathy, GERD, diabetes, depression and anxiety, KOFFI who presented [facility] ED 12/20/2024 for right hand pain, [...] his care. His home (more content not included)...[facility]07-26-2025 Progress note Author Austin Estrada [facility] Note Date/Time December 21, 2024 8:23 am [facility] Medical Records Department [address] [place] [address] Progress Note - Surgery 12/21/24 0807 MR#: [id number] Acct: [id number] Name: CARLOS ALBERTO KELLEY Jr. Rep #:[id number] : 1970 54 From: Austin Estrada MD PCP: Dr. Jhonatan Garcia, DO Status:ADM BRENNA Location: [place]3 KR883-5 Subjective Subjective Much improvement in right hand [...] 76.3 H, Lymph % (Auto) 10.6 L, Parmer % (Auto) 10.6 H, Eos % (Auto) [...] (Auto) 68.8, Lymph % (Auto) 15.1 L, Parmer % (Auto) 13.4 H, Eos % (Auto) [...] swelling. No significant bony abnormality Reading Location: [facility] Physical Exam Narrative Right upper Extremity Inspection: [...] the plan Charges/Coding Visit Charges Inpatient E&M: 49059 Subs Hosp L1 12/21/24822 <Electronically signed by Austin Etsrada MD> Cosigner Signature (if applicable): CC: ~ Signed [facility] Work Phone: 1(705) 218-376507-26-2025 Progress note [facility] Medical Records Department [address] [place] [address] Progress Note - Surgery 12/21/24 08 MR#: [id number] Acct: [id number] Name: CARLOS ALBERTO KELLEY Lucian Brito. Rep #:[id number] : 1970 54 From: Austin Estrada MD PCP: Dr. Jhonatan Garcia, DO Status:ADM BRENNA Location: [place]3 AJ523-3 Subjective Subjective Much improvement in right hand [...] 76.3 H, Lymph % (Auto) 10.6 L, Parmer % (Auto) 10.6 H, Eos % (Auto) [...] (Auto) 68.8, Lymph % (Auto) 15.1 L, Parmer % (Auto) 13.4 H, Eos % (Auto) [...] swelling. No significant bony abnormality Reading Location: [facility] Physical Exam Narrative Right upper Extremity Inspection: [...] the plan Charges/Coding Visit Charges Inpatient E&M: 47698 Subs Hosp L1 12/21/24 0823 Cosigner Signature (if applicable): CC: ~ Signed [facility]07-25-2025 History and physical note Author Yaz Dee [facility] Note Date/Time December 20, 2024 6:31 pm [facility] Medical Records Department [address] [place] [address] H&P Exam - Hospitalist 12/20/24 7828 MR#: [id number] Acct: [id number] Name: CARLOS ALBERTO KELLEY Jr. Rep #:[id number] : 1970 54 From: Yaz Dee MD PCP: Dr. Jhonatan Garcia, DO Status:ADM BRENNA Location: [place] FF397-9 HPI - General General Date of Admission: 12/20/24 Date of Service: 12/20/24 Chief Complaint: Right hand pain and swelling HPI Narrative RAY WARREN, is d59-ycno-gog male history of hypertension, gout, cardiomyopathy, GERD, diabetes, depression and anxiety, KOFFI who presented [facility] ED 12/20/2024 for right hand pain, [...] Type Severity Reaction Status Date / Time Nimrtkr-HJC-CmN Reductase Allergy Mild Hives Verified 12/20/24 13:07 Inhibitor Social History housing: retirement Smoking Status: Former smoker ROS ROS Narrative [...] 76.3 H, Lymph % (Auto) 10.6 L, Parmer % (Auto) 10.6 H, Eos % (Auto) [...] swelling. No significant bony abnormality Reading Location: [facility] Assessment & Plan Assessment/Plan (1) Localized swelling [...] Dee MD Charges/Coding Visit Charges Inpatient E&M: 09707 Init Hosp L2 12/20/24 1831 <Electronically signed by Yaz Dee MD> Cosigner Signature (if applicable): CC: Dr. Yaz Dee MD; Dr. Jhonatan Garcia, ~ Signed [facility] Work Phone: 1(656) 684-359007-25-2025 History and physical note Author Yaz Dee [facility] Note Date/Time December 20, 2024 6:[address] [facility] Medical Records Department [address] [place] [address] H&P Exam - Hospitalist 12/20/24 1752 MR#: [id number] Acct: [id number] Name: CARLOS ALBERTO KELLEY Jr. Rep #:[id number] : 1970 54 From: Yaz Dee MD PCP: Dr. Jhonatan Garcia, DO Status:ADM BRENNA Location: [place]3 YN653-9 HPI - General General Date of Admission: 12/20/24 Date of Service: 12/20/24 Chief Complaint: Right hand pain and swelling HPI Narrative RAY WARREN, is d98-pwte-wxt male history of hypertension, gout, cardiomyopathy, GERD, diabetes, depression and anxiety, KOFFI who presented [facility] ED 12/20/2024 for right hand pain, [...] Type Severity Reaction Status Date / Time Iwbubsh-AEP-XeM Reductase Allergy Mild Hives Verified 12/20/24 13:07 Inhibitor Social History housing: retirement Smoking Status: Former smoker ROS ROS Narrative [...] 76.3 H, Lymph % (Auto) 10.6 L, Parmer % (Auto) 10.6 H, Eos % (Auto) [...] swelling. No significant bony abnormality Reading Location: [facility] Assessment & Plan Assessment/Plan (1) Localized swelling [...] Dee MD Charges/Coding Visit Charges Inpatient E&M: 38922 Init Hosp L2 12/20/24 1831 <Electronically signed by Yaz Dee MD> Cosigner Signature (if applicable): CC: Dr. Yaz Dee MD; Dr. Jhonatan Garcia, ~ Signed [facility] Work Phone: 1(373) 368-610007-25-2025 Evaluation note* Diagnosis Onset Date Resolution Status Admit Date IV infiltrate acute December 20, 2024 5:52pm Localized swelling on right hand acu te December 20, 2024 5:52pm [facility] Work Phone: 1(471) 755-598207-25-2025 Evaluation note* Diagnosis Onset Date Resolution Status Admit Date Extravasation of intravenous contrast medium acute December 20, 2024 5:52pm IV infiltrate acute December 20, 2024 5:52pm Localized swelling on right hand acu te December 20, 2024 5:52pm Swelling of right hand acute Ju 2024 5:52pm [facility] Work Phone: 1(603) 258-816007-25-2025 Evaluation note* Diagnosis Onset Date Resolution Status Admit Date Extravasation of intravenous contrast medium acute December 20, 2024 5:52pm IV infiltrate acute December 20, 2024 5:52pm Localized swelling on right hand acu te December 20, 2024 5:52pm Swelling of right hand acute Ju 2024 5:52pm Atrial fibrillation with RVR acute December 28, 2024 3:27am Chronic anticoagulation acute A ug2024 3:27am Fever acute December 28 3:27am History of fracture of right ankle acute December 28, 2024 3:27am Morbid obesity with BMI of 45.0-49.9, adult acute December 28 3:27am Obstructive sleep apnea acute A ugust 2024 3:27am Palpitations acute December 28, 2024 3:27am Postoperative infection acute A ugust 2024 3:27am [facility] Work Phone: 1(615) 215-226607-25-2025 Discharge summary Author Robles Botello [facility] Note Date/Time December 20, 2024 4:57 pm [facility] Medical Records Department [address] [place] [address] Emergency Department Summary 12/20/24 MR#: [id number] Acct: [id number] Name: WARRENCARLOS ALBERTO Epstein Jr. Rep #:[id number] : 1970 54 From: Robles Botello MD [...] the swelling but is also very itchy. [facility] Medical History Ankle fracture, right Insomnia Obstructive [...] Type Severity Reaction Status Date / Time Pmpgmah-QPP-KkK Reductase Allergy Mild Hives Verified 12/20/24 13:07 Inhibitor Social History housing: retirement Smoking Status: Former smoker ROS ROS ED [...] 76.3 H Lymph % (Auto) 10.6 L Parmer % (Auto) 10.6 H Eos % (Auto) [...] swelling. No significant bony abnormality Reading Location: [facility] Management Discussion w/another healthcare provider: Hospitalist and Vamp Stitcher Discharge Plan Dx/Rx/DC Orders Clinical Impression: Swelling of right hand, Extravasation of intravenous contrast medium Disposition Disposition: Acute Care Hospital [facility] What to do if you have Problems For any increased pain, shortness of breath, bleeding, nausea or vomiting, chestpain, or any unexpected problems, contact your Primary Care Provider. Call [facility] ([phone]) or report to the closest Emergency Room. Call 911 if necessary. 12/20/24 1657 <Electronically signed by Robles Botello MD> Cosigner Signature (if applicable): CC: Dr. Jhonatan Garcia, ~ Signed [facility] Work Phone: 1(996) 586-811207-25-2025 History and physical note [facility] Medical Records Department [address] [place] [address] H&P Exam - Hospitalist 12/20/24 1752 MR#: [id number] Acct: [id number] Name: CARLOS ALBERTO KELLEY Lucian Brito. Rep #:[id number] : 1970 54 From: Yaz Dee MD PCP: Dr. Jhonatan Garcia, DO Status:ADM BRENNA Location: [address] HPI - General General Date of Admission: 12/20/24 Date of Service: 12/20/24 Chief Complaint: Right hand pain and swelling HPI Narrative CARLOS ALBERTO KELLEY, is g03-awxd-udl male history of hypertension, gout, cardiomyopathy, GERD, diabetes, depression and anxiety, KOFFI who presented [facility] ED 12/20/2024 for right hand pain, [...] Type Severity Reaction Status Date / Time Iuwkdno-ZJN-VpC Reductase Allergy Mild Hives Verified 12/20/24 13:07 Inhibitor Social History housing: retirement Smoking Status: Former smoker ROS ROS Narrative [...] 76.3 H, Lymph % (Auto) 10.6 L, Parmer % (Auto) 10.6 H, Eos % (Auto) [...] swelling. No significant bony abnormality Reading Location: [id number] Assessment & Plan Assessment/Plan (1) Localized swelling [...] Dee MD Charges/Coding Visit Charges Inpatient E&M: 44850 Init Hosp L2 12/20/24 1831 Cosigner Signature (if applicable): CC: Dr. Yaz Dee MD; Dr. Jhonatan Garcia, DO~ Signed [facility]07-25-2025 Consult note Author Austin [facility] Note Date/Time December 20, 2024 4:04 pm [facility] Medical Records Department [address] [place] [address] Consultation - Surgical 12/20/24 1439 MR#: [id number] Acct: [id number] Name: CARLOS ALBERTO KELLEY Jr. Rep #:[id number] : 1970 54 From: Austin Estrada MD [...] CT scan. Patient has been in a retirement recently secondary to immobility because of aright lower extremity external fixator. He presented to the emergency department yesterday for chest pain and was getting a CT scan to rule out a DVT PE. He was discharged home to the retirement last night and return today for the [...] Type Severity Reaction Status Date / Time Ppengba-XLT-SaX Reductase Allergy Mild Hives Verified 12/20/24 13:07 Inhibitor Social History housing: retirement Smoking Status: Former smoker Physical Exam Narrative [...] Charges/Coding Visit Charges Office Visits / Consults: 94385 OV L3 New 30min 12/20/24 1604 <Electronically signed by Austin Estrada MD> Cosigner Signature (if applicable): CC: Dr. Jhonatan Garcia, DO~ Signed [facility] Work Phone: 1(160) 963-770707-25-2025 Discharge summary [facility] Medical Records Department [address] [place] [address] Emergency Department Summary 12/20/24 MR#: [id number] Acct: [id number] Name: CARLOS ALBERTO KELLEY Jr. Rep #:[id number] : 1970 54 From: Robles Botello MD [...] the swelling but is also very itchy. [facility] Medical History Ankle fracture, right Insomnia Obstructive [...] Type Severity Reaction Status Date / Time Hdwswwf-BAZ-AtN Reductase Allergy Mild Hives Verified 12/20/24 13:07 Inhibitor Social History housing: retirement Smoking Status: Former smoker ROS ROS ED [...] 76.3 H Lymph % (Auto) 10.6 L Parmer % (Auto) 10.6 H Eos % (Auto) [...] swelling. No significant bony abnormality Reading Location: [facility] Management Discussion w/another healthcare provider: Hospitalist and Vamp Stitcher Discharge Plan Dx/Rx/DC Orders Clinical Impression: Swelling of right hand, Extravasation of intravenous contrast medium Disposition Disposition: Acute Care Hospital [facility] What to do if you have Problems For any increased pain, shortness of breath, bleeding, nausea or vomiting, chestpain, or any unexpected problems, contact your Primary Care Provider. Call [facility] ([phone]) or report tothe closest Emergency Room. Call 911 if necessary. 12/20/24 1657 Cosigner Signature (if applicable): CC: Dr. Jhonatan Garcia, DO ~ Signed [facility]07-25-2025 Consult note [facility] Medical Records Department [address] [place] [address] Consultation - Surgical 12/20/24 1431 MR#: [id number] Acct: [id number] Name: CARLOS ALBERTO KELLEY Jr. Rep #:[id number] : 1970 54 From: Austin Estrada MD PCP: Dr. Jhonatan Garcia, DO Status:REG ER Location: ED Assessment & [...] CT scan. Patient has been in a retirement recently secondary to immobility because of aright lower extremity external fixator. He presented to the emergency department yesterday for chest pain and was getting a CT scan to rule out a DVT PE. He was discharged home to the retirement last night and return today for the [...] Type Severity Reaction Status Date / Time Arjnykh-INE-NwX Reductase Allergy Mild Hives Verified 12/20/24 13:07 Inhibitor Social History housing: retirement Smoking Status: Former smoker Physical Exam Narrative [...] Charges/Coding Visit Charges Office Visits / Consults: 65134 OV L3 New 30min 12/20/24 1604 Cosigner Signature (if applicable): CC: Dr. Jhonatan Garcia DO~ Signed [facility]07-25-2025 Radiology Diagnostic study note [facility] Imaging Services [address] [place], [place] [address] Hand Min 3 Views MR#: [id number] Acct: [id number] Name: WARRENCARLOS ALBERTO Lucian Kelsey Rep #: [id number] : 1970 M 54 From: Nevaeh Lundberg MD PCP: Dr. Jhonatan Garcia DO Status: REG ER Study:Hand Min 3 Views Date of Exam: Exam# [id number] Ordering Dr: Refugio Botello MD PROCEDURE: HAND [...] swelling. No significant bony abnormality Reading Location: [facility] CC: Dr. Robles Botello MD; Dr. Jhonatan Garcia DO ~ Pcb Designer: Signed [facility]07-25-2025 Radiology Diagnostic study note [facility] Imaging Services [address] [place] [address] CTA Chest W/WO Contrast MR#: [id number] Acct: [id number] Name: CARLOS ALBERTO KELLEY Jr. Rep #: [id number] : 1970 M 54 From: Whitlye Lewis MD PCP: Dr. Jhonatan Garcia DO Status: REG ER Study:CTA Chest W/WO Contrast Date of Exam: 12/20/24 Exam# [id number] Ordering Dr: Nguyễn Al DO PROCEDURE: CTA [...] No embolism, dissection, or pneumonia. Reading Location: [place] [address] CC: Dr. Jhonatan Garcia DO; Dr. Nguyễn Al DO ~ Pcb Designer: Signed [facility]07-24-2025 Radiology Diagnostic study note [facility] Imaging Services [address] [place] [address] Chest 1 View (Portable) MR#: [id number] Acct: [id number] Name: CARLOS ALBERTO KELLEY Jr. Rep #: [id number] : 1970 M 54 From: Britney Avalos MD PCP: STACEY Pena Status: PRE E R Study:Chest 1 View (Portable) Date of Exam: 12/19/24 Exam# [id number] Ordering Dr: Nguyễn Al DO PROCEDURE: CHEST [...] atelectasis, or edema also possible. Reading Location: [id number] CC: STACEY Correa; Dr. Nguyễn Al DO ~ Pcb Designer: Signed [facility]07-20-2025 Hospital Discharge instructionsAdditional Instructions Plastic surgery discharge instructions Continue elevation of the right upper extremity especially at night and when lying in bed for the next several days for the swelling to decrease Recommend bacitracin or Neosporin and Band-Aids for any skin excoriations on the dorsum of the right hand secondary to the blistering. Follow-up with me later this week in [facility] Work Phone: 1(547) 964-240607-18-2025 Hospital Discharge instructions Patient Education 12/13/2024 10:21:44 [...] breathing. Follow these instructions at home: Take igbv-jql-zkefhfp and prescription medicines only as told by [...] 05/20/2014 Document Revised: 04/27/2018 Document Reviewed: 11/30/2016 [employer] Patient Education 2020 [employer]. Follow Up Care 12/10/2024 23:38:17 With:GIRMA CROREA Address: [address] [place] [address]- [phone] When: Unknown Comments:Please call to schedule with your PCP when you discharge from [facility]. With:NANI QUINTANA DO Orthopedic Address: [address] [place] [address] [phone] When:2-4 days Comments:Please call to schedule to have the external fixator removed. [facility] 07-18-2025 Note Discharge Instructions Thank you for allowing [facility] to assist you with your healthcare needs. The following is importantdischarge information regarding your hospital visit. Your Care Team [facility] Your Diagnosis Acute respiratory failure with hypoxia Bacteremia Chest pain CHF with cardiomyopathy COPD exacerbation HTN (hypertension) Morbid obesity with BMI of 40.0-44.9, adult Paroxysmal atrial fibrillation Sheltered homelessness Shortness of breath Type 2 diabetes mellitus with hyperlipidemia What to do next Follow Up Appointments Follow Up with GIRMA CORREA Where:[address] [place] [address] [phone] Additional Information: Please call to schedule with your PCP when you discharge from [facility]. Follow Up with NANI QUINTANA DO Orthopedic When:Within 2-4 days Where:[address] [place] [address] [phone] Additional Information: Please call to schedule to [...] breathing. Follow these instructions at home: Take uzjc-kmu-dwlweda and prescription medicines only as told by [...] 05/20/2014 Document Revised: 04/27/2018 Document Reviewed: 11/30/2016 [employer] Patient Education 2020 [employer]. Additional Information VACCINATE! IT SAVES LIVES! Members of the community who have not yet received the COVID-19 vaccine and would like to receive it can visit one of [facility] vaccine clinics. There are many vaccine clinic locations within the [facility]. For locations and available times, please visit [email or web address] It is important to note that some COVID mobile vaccine clinics are held outdoors and may be canceled in rainy or stormy conditions. To learn more about pediatric vaccinations (ages 5-11), we invite you to visit the [facility] webpage. https://www.[email or web address].org/pages/6734-Igspe-Cdjpfydtxtq-Dvqbezubqc-Kvirk-Pfp stions.htmlTo learn more about the COVID-19 vaccine, we invite you to visit the CDC website for a list of frequently asked questions.https://www.cdc.gov/coronavirus/2019-ncov/vaccines/faq.html [employer] Patient Portal Access Instructions: Stay connected with your healthcare team and access your personal medical information anytime with the [employer] Patient Portal. Please follow the directions below to create your [employer] account: 1.Access the email account you provided upon registration to the hospital/physician office.2.Look for an invitation email from [facility].3.Open the email and access the invitation link: AcceptInvitation to [employer].4.Fill in the required orr to create your account. To access your account, visit [employer]. Click the blue button labeled "Access Patient [...] who you will allowto register on the [facility] Patient Portal for access to your information. You can also access the [facility] on the [facility] frida. Simply click on "Patient Portal" and then log into your account. If you would like to receive a full copy of your medical records, please contact the [facility] Medical Records Department by calling [phone], Monday through Monday between 8 a.m. and [...] Call your local pharmacy or go to http://[employer].Helpful Alliance/2X9Qx7p to find one close to you.3.Make use of household items: Use cat litter or old coffee grounds to dispose medications if other options arenot available. Mix your drugs with these household products, seal them in an airtight container andthrow it into the garbage. Call [facility]: [phone] to be sure your drugs can be [...] that I should contact my d octor. Patient/Medical Sales Consultant Signature: Date/Time: Relationship to Patient: Witness Name/Signature: Date/Time: [facility] Health07-18-2025 Pastoral care Progress note Pastoral Care Note Entered On: 12/13/2024 9:35 EDT Performed On: 12/13/2024 9:33 EDT by Carlos Alberto Nesbitt Pastoral Care Type of Pastoral Visit : Follow up visit Spiritual Care Visit Initiated by : Neurophysiological Technician Spiritual Care Reason for Visit : General [...] Carlos Alberto Nesbitt on 12/13/2024 09:33 AM [facility]07-17-2025 Note Date of Service 12/12/2024 Chief Complaint COPD exacerbation Subjective 54-year-old male with past medical history significant for COPD/asthma, KOFFI, tachycardia induced cardiomyopathy with recovered EF, atrial fibrillation anticoagulated with Xarelto, type 2 diabetes mellitus. Patient presented to [facility] emergency department 12/10/2024 with dyspnea and [...] for SNF. He has been accepted at [facility] and pre- CERT has been started today. [...] by NARESH MORENO on 12/12/2024 12:39 PM [facility]07-17-2025 Pastoral care Progress note Pastoral Care Note Entered On: 12/12/2024 9:52 EDT Performed On: 12/12/2024 9:48 EDT by Carlos Alberto Nesbitt Pastoral Care Type of Pastoral Visit : Initial visit Spiritual Care Visit Initiated by : Neurophysiological Technician Spiritual Care Reason for Visit : General [...] wants to get back to a former orthodoxy; pt welcomes someone to talk with and for prayer to be given Pastoral Care Visit Length : 20 minute(s) Carlos Alberto Nesbitt - 12/12/2024 9:48 EDT Digitally Signed by Carlos Alberto Nesbitt on 12/12/2024 09:48 AM [facility]07-17-2025 Note* Exam Date Time Procedure Performing Provider Status 12/12/24 5:56 AM XR Chest 1 View MICK LEGGETT MD; Aut h (Verified) [id number] ORIGINAL EXAMINATION: ONE XRAY VIEW OF THE [...] 12/12/2024 6:38:29 AM Ordering Provider: VENITA BROTHERS [facility]07-16-2025 Note. MICRO - Microbiology PROCEDURE: Streptococcus Pneumoniae [...] Locations *1: This test was performed at: [address], [address] [place], [place] [address]107-16-2025 Note. MICRO - Microbiology PROCEDURE: Legionella Urine [...] Locations *1: This test was performed at: [address], [id number] [place], [place] [address]-16-2025 Evaluation + Plan noteExtracted from: Title:History and Physical Author:ERLIN ALANIZ APRN-MONUMENT SETTER HELPER Date:12/11/24 1. COPD exacerbation Acute, new onset, [...] no longer feels safe in that environment. load out worker consulted for discharge planning. 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 History of Present Illness Patient is a 54-year-old male, who follows with Girma Correa CNP with a past medical history significant for COPD, asthma, CHF with cardiomyopathy, hypertension, atrial fibrillation, type 2 diabetes, and KOFFI, presented to [facility] emergency department with the chief complaint [...] that was supposed to be removed at [facility] today. Patient denies any fever, [...] home and would like to go to [facility]. He was just admitted to [facility] with atrial fibrillation RVR and bacteremia. [...] RR: 16 BP: 153/86 SpO2: 92% HT: 175 cm WT: 139.8 kg BMI: 45.65 Weight Dosing [...] to ECG at 11/24/2024 15:28:54 Electronic Signature: SUZANNE MUROSON 12/11/2024 02:07:48 Assessment/Plan 1. COPD exacerbation Acute, [...] no longer feels safe in that environment. load out worker consulted for discharge planning. DVT prophylaxis [...] ANGEL GARCES DO on 12/11/2024 03:06 PM [facility]07-16-2025 Note* Exam Date Time Procedure Performing Provider Status 12/11/24 2:[address] Angiography Chest w/ Contrast IMCK WAGNER MD; Auth (Verified) [id number] ORIGINAL EXAMINATION: CTA OF THE CHEST 12/11/2024 [...] Sign Date: 12/11/2024 3:29:36 AM Ordering Provider: [facility]07-16-2025 Note* Exam Date Time Procedure Performing Provider Status 12/11/24 12:31 AM XR Chest 1 View MICK LEGGETT MD; [facility] (Verified) [id number] ORIGINAL EXAMINATION: ONE XRAY VIEW OF THE [...] Sign Date: 12/11/2024 1:19:48 AM Ordering Provider: [facility]07-15-2025 Note* Exam Date Time Procedure Performing Provider Status 12/10/24 11:55 PM EKG [ED AOH] - CV DELORES MURO DO; Auth (Verified) ECG Final Report Sinus rhythm Left axis deviation Abnormal R-wave progression, late transition Compared to ECG at 11/24/2024 15:28:54 Electronic Signature: DELORES MURO DO 12/11/2024 02:07:48 [facility]07-09-2025 Hospital Discharge instructions Patient Education 12/04/2024 17:09:41 [...] splint gets wet, dry it with a chair mender on a cool setting. You may use cyiw-rew-sffdozw pain medicine to control pain, unless another [...] cast or splint develops cracks or breaks [phone] [employer]. [address] [place] [address]. All rights reserved. This information is not intended as a substitute for professional medical care. Always follow yourhealthcare professional's instructions. Follow Up Care 12/04/2024 16:40:24 With:GIRMA CORREA APRN-[facility] Address: [address] [facility] [place] [address] [phone] When:2-4 days [facility] 07-09-2025 Note Discharge Instructions Thank you for allowing [facility] to assist you with your healthcare needs. The following is importantdischarge information regarding your hospital visit. Diagnosis from Today's Visit Visit for wound check What to Do Next Instructions from Your Care Team No qualifying data available. Post Acute Orders No qualifying data available. You Need to Schedule the Following Appointments Follow Up with GIRMA CORREA When:Within 2-4 days Where:[address] [facility] [place] [address]- [phone] Allergies Statins myalgia Medications Please ask your [...] splint gets wet, dry it with a chair mender on a cool setting. You may use gvsb-iln-ozfrsop pain medicine to control pain, unless another [...] cast or splint develops cracks or breaks [id number] [employer]. [address] [place] [address], [place] [address]. All rights reserved. This information is not intended as a substitute for professional medical care. Always follow yourhealthcare professional's instructions. Additional Information VACCINATE! IT SAVES LIVES! Members of the community who have not yet received the COVID-19 vaccine and would like to receive it can visit one of [facility] vaccine clinics. There are many vaccine clinic locations within the [facility]. For locations and available times, please visit www.gettheshot.coronavirus.[place].gov/. It is important to note that some COVID mobile vaccine clinics are held outdoors and may be canceled in rainy or stormy conditions. To learn more about pediatric vaccinations (ages 5-11), we invite you to visit the [facility] webpage. https://www.akronLabmeetings.org/pages/5716-Kpkhd-Emsngcgrafj-Tvyxbsagbt-Mggvl-Nuq stions.htmlTo learn more about the COVID-19 vaccine, we invite you to visit the CDC website for a list of frequently asked questions. https://www.cdc.gov/coronavirus/2019-ncov/vaccines/faq.html [facility] [employer] Patient Portal Access Instructions: Stay connected with your healthcare team and access your personal medical information anytime with the [facility] Patient Portal. If you would like a full copy of your medical records please contact the [facility] Medical Records Department Monday through Monday between 8a.m. and 4:30p.m. Please follow the directions below to access the portal: 1.Access the email account you provided upon registration to the hospital.2.Look for an invitation email from [facility].3.Open the email and access the invitation link: Accept Invitation to [facility]4.Fill in the required orr to create your account. Sign into www.[employer] with your username and password that you [...] you will allow to register on the [facility] Patient Portal for access to your information. You can also access the [facility] Patient Portal on the [employer]. Simply click on "Health Records" under "HealthData" [...] Call your local pharmacy or go to http://CreditEase.Helpful Alliance/7O2Vb1m to find one close to you.3.Make use of household items: Use cat litter or old coffee grounds to dispose medications if other options arenot available. Mix your drugs with these household products, seal them in an airtight container andthrow it into the garbage. Call [facility]: [phone] to be sure your drugs can be [...] that I should contact my d octor. Patient/Medical Sales Consultant Signature: Date/Time: Relationship to Patient: Witness Name/Signature: Date/Time: [facility]07-06-2025 Note. MICRO - Microbiology PROCEDURE: Blood Culture [...] Locations *1: This test was performed at: [facility], [address] [place] [address], [address] , [facility] [id number] Note. MICRO - Microbiology PROCEDURE: Blood Culture [...] Locations *1: This test was performed at: [address], [facility] , [facility] [id number] Note. MICRO - Microbiology PROCEDURE: Blood Culture [...] Locations *1: This test was performed at: [address], [facility] , [facility] [id number] Cardiology Progress note Date of Service 11/28/2024 [...] MIKEL MCDANIEL DO on 11/28/2024 11:46 AM [facility]4649 Hospital Discharge instructions Patient Education 11/28/2024 15:26:42 Atrial Fibrillation, Cdeb-pd-Jcjk Atrial Fibrillation Atrial fibrillation is a type [...] Follow these instructions at home: Medicines Take opcd-vbw-itbbeyi and prescription medicines only as told by [...] 02/21/2009 Document Revised: 07/19/2018 Document Reviewed: 07/06/2018 [employer] Patient Education 2020 [employer]. Follow Up Care 11/24/2024 07:01:00 With:NANI QUINTANA DO Orthopedic Address: [address] [place] [address] [phone] When:12/06/2024 09:00:00 Comments:Please Dr. Quintana's office to schedule appointment for follow up to discuss and schedule possible ex-fix removal. With:GIRMA CORREA Address: [address] [place] [address]- [phone] When:1-2 days Comments:Please call the office to schedule a hospital follow up appointment. [facility] 07-03-2025 Note Discharge Instructions Thank you for allowing [facility] to assist you with your healthcare needs. [...] CORREA When:Within 1-2 days Where:[address] [place] [address]- [phone] Additional Information: Please call the office to schedule a hospital follow up appointment. Follow Up with NANI QUINTANA DO Orthopedic When:12/06/2024 09:00 AM EDT Where:[address] [facility], [place] [address]- [phone] Additional Information: Please Dr. Quintana's office to [...] a day Duration: 14 Days Pickup at [facility]/pharmacy #[id number] Changed potassium chloride (Potassium Chloride (Eqv-K-Tab) 20 [...] by mouth Daily at bedtime Pharmacy Information [facility]/pharmacy #[id number]: [address], [place] [id number] [phone] Please take this list to your next [...] Follow these instructions at home: Medicines Take smew-ygx-gwtfpay and prescription medicines only as told by [...] 02/21/2009 Document Revised: 07/19/2018 Document Reviewed: 07/06/2018 [employer] Patient Education 2020 [employer] Additional Information VACCINATE! IT SAVES LIVES! Members of the community who have not yet received the COVID-19 vaccine and would like to receive it can visit one of [facility] vaccine clinics. There are many vaccine clinic locations within the [facility]. For locations and available times, please visit https://[email or web address].[place].gov/. It is important to note that some COVID mobile vaccine clinics are held outdoors and may be canceled in rainy or stormy conditions. To learn more about pediatric vaccinations (ages 5-11), we invite you to visit the [facility] webpage. https://www.akronLabmeetings.org/pages/5342-Vtwha-Kvaroitdqdd-Acldnbxmzv-Hffoh-Ppo stions.htmlTo learn more about the COVID-19 vaccine, we invite you to visit the CDC website for a list of frequently asked questions.https://www.cdc.gov/coronavirus/2019-ncov/vaccines/faq.html [employer] Patient Portal Access Instructions: Stay connected with your healthcare team and access your personal medical information anytime with the [employer] Patient Portal. Please follow the directions below to create your [employer] account: 1.Access the email account you provided upon registration to the hospital/physician office.2.Look for an invitation email from [facility].3.Open the email and access the invitation link: AcceptInvitation to [facility].4.Fill in the required orr to create your account. To access your account, visit [employer]. Click the blue button labeled "Access Patient [...] who you will allowto register on the [facility] Patient Portal for access to your information. You can also access the [facility] Patient Portal on the Rdiowhere frida. Simply click on "Patient Portal" and then log into your account. If you would like to receive a full copy of your medical records, please contact the [facility] Medical Records Department by calling [phone], Monday through Monday between 8 a.m. and [...] Call your local pharmacy or go to http://CreditEase.Helpful Alliance/4C4Bg3n to find one close to you.3.Make use of household items: Use cat litter or old coffee grounds to dispose medications if other options arenot available. Mix your drugs with these household products, seal them in an airtight container andthrow it into the garbage. Call [facility]: [phone] to be sure your drugs can be [...] COPY. Signatures Patient Education Materials Atrial Fibrillation, Dmtl-wz-Mnog Medication Leaflets My discharge plan and instructions have been reviewed and explained to me and I,WARREN BRITO, CARLOS ALBERTO Epstein understand my current condition and have read and understand these discharge instructions. I have received a written copy of the plan/instructions. If I have questions, I am aware that I should contact my d octor. Patient/Medical Sales Consultant Signature: Date/Time: Relationship to Patient: Witness Name/Signature: Date/Time: [facility]gt98-[facility]-0452 Discharge summary Date of Service 11/28/2024 Discharge [...] external fixator in place. Patient presented to [facility] as a transfer from [facility] on 11/24/2024 with complaints of palpitations [...] When:Within 1-2 days Where:[address] [facility] [place] [address]- [phone] Additional Information: Please call the office to [...] MAXIME COLLINS DO on 11/28/2024 01:25 PM [facility]Zlofkcdr63-21-2022 Infectious disease Progress note Date of Service [...] with orthopedics presents to the hospital from [facility] on 11/24/2024 as a transfer for [...] by ORI TOMLIN on 11/28/2024 12:[address]03-2025 Cardiology Progress note Date of Service 11/28/2024 [...] echo as he just had 1 month ago which showed normal LV function. Continue Tikosyn. Cardiology reconsulted November 26 due to patient having MSSA bacteremia. Completed NELDA today which was negative for any findings of endocarditis. Formal report pending. Cardiology will sign off. Please reach out if any cardiac questions. Rest of management per primaryteam/ID. Digitally Signed by MIKEL MCDANIEL DO on 11/28/2024 11:46 AM [facility]Mjptborn74-75-3213 Note* Exam Date Time Procedure Performing Provider Status 11/28/24 11:04 AM Transesophageal Echo cardiogram - CV FREDDY HARTLEY MD; Auth (Verified) [facility]Pykiydpw49-50-0309 Anesthesiology Consult note Patient: CARLOS ALBERTO KELLEY [...] list: Medical Asthma exacerbation / SNOMED CT 4106633654 / Confirmed COPD exacerbation / SNOMED CT 8367424147 / Confirmed Atopic dermatitis / SNOMED CT 33514515 / Confirmed Atypical chest pain / SNOMED CT 516234091 / Confirmed Morbid obesity with BMI of 40.0-44.9, adult / SNOMED CT 7855890058 / Confirmed Bronchitis / SNOMED CT 98574024 / Confirmed Cardiomyopathy / SNOMED CT 484563541 / Confirmed CHF with cardiomyopathy / SNOMED CT 38853407 / Confirmed Cough / SNOMED CT 90265624 / Confirmed Dental abscess / SNOMED CT 824192491 / Confirmed Depression / SNOMED CT 97844886 / Confirmed Dyspnea / SNOMED CT 276011422 / Confirmed Generalized anxiety disorder / SNOMED CT 79854469 / Confirmed Hypertension associated with type 2 diabetes mellitus / SNOMED CT 1944502820 / Confirmed Insomnia / SNOMED CT 990169090 / Confirmed LVH (left ventricular hypertrophy) / SNOMED CT 42895165 / Confirmed Moderate asthma / SNOMED CT 3257190982 / Confirmed Near syncope / SNOMED CT 5632381764 / Confirmed Chewing tobacco nicotine dependence / SNOMED CT 10457857 / Confirmed KOFFI (obstructive sleep apnea) / SNOMED CT 374735188 / Confirmed Right knee pain / SNOMED CT 9507152843 / Confirmed Paroxysmal atrial fibrillation / SNOMED CT 829101257 / Confirmed Screening for ischemic heart disease / SNOMED CT 446169084 / Confirmed Screening for colon cancer / SNOMED CT 012133114 / Confirmed Statin intolerance / SNOMED CT 5227620406 / Confirmed Tachyarrhythmia / SNOMED CT 05709800 / Confirmed Type 2 diabetes mellitus with hemoglobin A1c goal of less than 7.0% / SNOMED CT 945467576 / Confirmed Type 2 diabetes mellitus with hyperlipidemia / SNOMED CT 342044372 / Confirmed, Active Problems (32) Asthma exacerbation [...] Histories Past Medical History: Resolved Morbid obesity (575092057): Resolved. Diabetes mellitus (131227393): Resolved. Hypertension (0961290190): Resolved. BMI 45.0-49.9, adult (2206316056): Resolved. Anxiety (06709304): Resolved. Prediabetes (0835088287): Resolved. Obstructive sleep apnea (445976716): Resolved. Right flank pain (376377307): Resolved. Hyperlipidemia (35517205): Resolved. Mass of arm (979025151): Resolved. Family History: Cancer Father Heart disease Mother Grandparent Stroke Father Procedure history: Excision (650081584) on 03/25/2024 at 53 Years. 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 Cardioversion (226679376) on 12/23/2022 at 52 Years. Echocardiogram (2948673057) on 11/11/2022 at 52 Years. Comments: 03/20/2023 [...] atrial pressure is 15 mm Hg Elbow (3800561338). Comments: 07/11/2022 8:26 SHAHEEN Nunez bursitis - [...] Oral36.6 DegC (NOV 28 06:51) Heart Rate Khofcp32 bpm (NOV 28 09:06) EPI890 mmHg (NOV 28 06:51) DBP63 mmHg (NOV [...] range of motion. Integumentary: Intact, Warm, Dry, Napanoch. Neurologic: Alert, Oriented. Review / Management Results [...] 26)9.1(NOV 25)9.2(NOV 24) . Assessment and Plan [place] Society of Anesthesiologists (ASA) physical status classification: [...] ROJELIO NORIEGA DO on 11/28/2024 09:55 AM [facility] HospitalQvmvdunx85-13-4297 Note. MICRO - Microbiology PROCEDURE: Blood Culture [...] Locations *1: This test was performed at: [facility], [address] [place] [address], [address] , [facility] [id number] Note Date of Service 11/27/2024 Chief Complaint Palpitations Subjective 54-year-old male with a past medical history of COPD, tobacco abuse, A-fib, type 2 diabetes, recentankle fracture with external fixator in place. Presented to [facility] as a transfer from [facility] on 11/24/2024 with complaints of palpitations, [...] by MELISSA ORTEGA on 11/27/2024 12:32 PM [facility] HospitalCpxazjso22-70-9468 Infectious disease Progress note Date of Service [...] with [facility] presents to the hospital from [facility] on 11/24/2024 as a transfer for [...] by ORI TOMLIN on 11/27/2024 02:19 PM [facility] HospitalWplqhwts95-42-5106 Note. MICRO - Microbiology PROCEDURE: Blood Culture (bacterial) [O1 *1] SOURCE: Blood BODY SITE: COLLECTED DATE/TIME: 11/24/2024 05:08 EDT RECEIVED DATE/TIME: 11/24/2024 12:36 EDT START DATE/TIME: 11/24/2024 12:37 EDT FREE TEXT SOURCE: FINAL REPORTS Final Report [] Verified Date/Time/Personnel: 11/27/2024 09:17 EDT Staphylococcus aureus Isolated from aerobe and anaerobe bottles. Refer to previous culture for susceptibility. [id number] PRELIMINARY REPORTS Preliminary Report [] Verified Date/Time/Personnel: [...] Locations *1: This test was performed at: [facility], [address] [place] [address], [facility] , [facility]07-02-2025 Note. MICRO - Microbiology PROCEDURE: Blood [...] Locations *1: This test was performed at: [facility], [address] [place] [address], [address]- , [facility]07-01-2025 Orthopaedic surgery Consult note Date of Service 11/25/2024 Reason for Consultation Pin site care History of Present Illness Chucky is a 54-year-old male who is admitted to [facility] for A-fib with RVR. 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 Skin intact. - Motor: Hip flexion/extension, quadriceps, hamstrings, gastruc/soleus, EHL/FHL intact. - Foot warm and perfused. BCR - Sensation grossly intact L2-S2: obturator, femoral, LCN, DPN, SPN, sural, saphenous, M/HAZARDOUS MATERIALS TANKER DRIVER - Calf soft and non-tender Lab Results [...] SUZE MISHRA DO on 11/26/2024 07:11 AM [facility] HospitalYwhxdgcm67-27-1967 Cardiology Progress note Date of Service 11/26/2024 [...] CHANDRAKANT SUAREZ DO on 11/26/2024 03:37 PM [facility] HospitalDarmoacb62-66-8586 Cardiology Progress note Date of Service 11/26/2024 [...] CHANDRAKANT SUAREZ DO on 11/26/2024 03:37 PM [facility] HospitalPlzkhphn37-13-6553 Note Date of Service 11/26/2024 Chief Complaint Weakness Subjective 54-year-old male with a past medical history of COPD, tobacco abuse, A-fib, type 2 diabetes, recentankle fracture with external fixator in place. Presented to [facility] as a transfer from [facility] on 11/24/2024 with complaints of palpitations, [...] in place, no significant erythema or edema. Nosignificant drainage Neurological: Following simple commands, moving all [...] by MELISSA ORTEGA on 11/26/2024 12:18 PM [facility] HospitalVrctjdqy18-01-7175 Infectious disease Progress note Date of Service [...] repair tomorrow at outside facility presents from [facility] on 11/24/2024 is transferred for shortness [...] by ORI TOMLIN on 11/26/2024 02:31 PM [facility] HospitalLhhbwebk27-43-3169 Infectious disease Consult note Date of Service 11/25/2024 Reason for Consultation Staph aureus bacteremia Referring Physician Dr. Juarez History of Present Illness Patient is a 54-year-old male with past medical history of COPD, tobacco abuse, atrial fibrillation, type 2 diabetes, recent right ankle fracture with external fixator with scheduled operative repairtomorrow at outside facility presents from [facility] on 11/24/2024 as a transfer for [...] repair tomorrow at outside facility presents from [facility] on 11/24/2024 as a transfer for [...] by ORI TOMLIN on 11/25/2024 04:42 PM [facility] HospitalIgutyare49-93-1940 Note* Exam Date Time Procedure Performing Provider Status 11/25/24 6:03 PM XR Ankle Minimum 3 Views Left KAILEY COLEY MD; Auth (Verified) [id number] ORIGINAL EXAMINATION: THREE XRAY VIEWS OF THE [...] Date: 11/25/2024 7:46:46 PM Ordering Provider: SUZE [facility]06-30-2025 Note* Exam Date Time Procedure Performing Provider Status 11/25/24 6:03 PM XR Tibia/Fibula 2 Views Right KAILEY COLEY MD; Auth (Verified) [id number] ORIGINAL EXAMINATION: TWO XRAY VIEWS OF THE [...] 11/25/2024 7:42:39 PM Ordering Provider: ORI TOMLIN [facility]Hqcdcrvn33-23-7495 Note* Exam Date Time Procedure Performing Provider Status 11/25/24 6:01 PM XR Ankle Minimum 3 Views Right TRACE ROUSE MD; Auth (Verified) [id number] ORIGINAL EXAMINATION: THREE XRAY VIEWS OF THE [...] 11/25/2024 7:39:01 PM Ordering Provider: SUZE MISHRA [id number] Orthopaedic surgery Consult note Date of Service 11/25/2024 Reason for Consultation Pin site care History of Present Illness Chucky is a 54-year-old male who is admitted to [facility] for A-fib with RVR. 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 Skin intact. - Motor: Hip flexion/extension, quadriceps, hamstrings, gastruc/soleus, EHL/FHL intact. - Foot warm and perfused. BCR - Sensation grossly intact L2-S2: obturator, femoral, LCN, DPN, SPN, sural, saphenous, M/HAZARDOUS MATERIALS TANKER DRIVER - Calf soft and non-tender Lab Results [...] SUZE MISHRA DO on 11/26/2024 07:11 AM [id number] Cardiology Progress note Date of Service 11/25/2024 [...] CHANDRAKANT SUAREZ DO on 11/25/2024 02:06 PM [facility] [id number] Note Date of Service 11/25/2024 Chief Complaint Right lower extremity pain Subjective 54-year-old male with a past medical history of COPD, tobacco abuse, A-fib, type 2 diabetes, recentankle fracture with external fixator in place. [facility]ed [facility] as a transfer from [facility] on 11/24/2024 with complaints of palpitations, [...] of Discharge 24 hours Anticipated DC Disposition [facility] Digitally Signed by MELISSA ORTEGA on 11/25/2024 12:35 PM Digitally Signed by MELISSA ORTEGA on 11/25/2024 01:00 PM [facility] [id number] Infectious disease Consult note Date of Service 11/25/2024 Reason for Consultation Staph aureus bacteremia Referring Physician Dr. Juarez History of Present Illness Patient is a 54-year-old male with past medical history of COPD, tobacco abuse, atrial fibrillation, type 2 diabetes, recent right ankle fracture with external fixator with scheduled operative repairtomorrow at outside facility presents from [facility] on 11/24/2024 as a transfer for [...] repair tomorrow at outside facility presents from [facility] on 11/24/2024 as a transfer for [...] by ORI TOMLIN on 11/25/2024 04:42 PM [facility] [id number] Cardiology Progress note Date of Service 11/25/2024 [...] CHANDRAKANT SUAREZ DO on 11/25/2024 02:06 PM [facility] [id number] Note* Exam Date Time Procedure Performing Provider Status 11/24/24 3:28 PM EKG (ED) - CV JORDON ARCOS MD; Auth (Verified) ECG Final Report SINUS RHYTHM LAD, CONSIDER LEFT ANTERIOR FASCICULAR BLOCK LOW VOLTAGE, PRECORDIAL LEADS CONSIDER ANTERIOR INFARCT Electronic Signature: JORDON ARCOS MD 11/25/2024 09:46:09 [facility] HospitalBfukkefd73-33-9877 Cardiology Consult note Reason for Consultation Atrial [...] BENNETT SMITH MD on 11/24/2024 03:05 PM [facility] [id number] Note* Exam Date Time Procedure Performing Provider Status 11/24/24 2:00 PM XR Chest 1 View MELISSA SANTOS MD; Aut h (Verified) [id number] ORIGINAL EXAMINATION: ONE XRAY VIEW OF THE [...] 11/24/2024 2:03:25 PM Ordering Provider: KARLENE BARCENAS [facility] [id number] Evaluation + Plan noteExtracted from: Title:History and [...] Metabolic Panel 08/27/24 * N-Terminal proBNP 08/27/24 [facility] 06-29-2025 History and physical note Date of Service November 24, 2024 Chief Complaint Palpitations, shortness of breath History of Present Illness This is a 54-year-old male with a past medical history consistent with COPD, tobacco abuse, atrial fibrillation, T2DM, recent ankle fracture with scheduled operative repair tomorrow at an outside facility right presents from [facility] as a transfer for palpitations in [...] Patient was given Cardizem bolus in the [facility] ED, no further therapy given due to BP drop. On exam, patient states that his work of breathing is improved. Was placed on 2 L nasal cannula in setting of A-fib with RVR. Denies chest pain, palpitations at this time. Had report of visual disturbance, hallucinations. States this happened once while in [place]. Denies any other new or acute complaints. [...] KARLENE BARCENAS DO on 11/24/2024 01:02 PM [facility] HospitalVwabkeog03-03-1057 Note* Exam Date Time Procedure Performing Provider Status 11/24/24 5:[address] Angiography Chest w/ Contrast DARNELL MOLINA MD; Auth (Verified) [id number] ORIGINAL EXAMINATION: CTA OF THE CHEST 11/24/2024 [...] 11/24/2024 6:01:11 AM Ordering Provider: CIRILO PATEL [facility]06-29-2025 Note* Exam Date Time Procedure Performing Provider Status 11/24/24 5:[address] Head or Brain w/o Contrast DARNELL MOLINA MD; Auth (Verified) [id number] ORIGINAL EXAMINATION: CT OF THE HEAD WITHOUT [...] No acute intracranial abnormality. Interpreted by: Darnell oMlina MD Preliminary Report By: Darnell Molina MD [...] 11/24/2024 5:55:14 AM Ordering Provider: CIRILO PATEL [facility]06-29-2025 Note* Exam Date Time Procedure Performing Provider Status 11/24/24 4:05 AM EKG [ED AOH] - CV ESAXAVIERCIRILO Gale ; Auth (Verified) ECG Final Report Atrial fibrillation Markedly posterior QRS axis Anteroseptal infarct, old Minimal ST depression, lateral leads Baseline wander in lead(s) II,aVR Compared to ECG at 10/16/2024 22:24:26 ABNORMAL ECG Electronic Signature: MEGHANBaljinder CIRILO STONE 11/24/2024 04:10:26 [facility]05-28-2025 Hospital Discharge instructions Patient Education 10/23/2024 17:07:48 [...] your health care provider approves. 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 Do not slide your [...] 05/15/2006 Document Revised: 04/10/2019 Document Reviewed: 04/10/2019 [employer] Patient Education 2020 [employer]. 10/23/2024 17:07:24 How to Care for an [...] with a waterproof covering. General instructions Take ikxp-ugf-ursbzul and prescription medicines only as told by [...] 01/25/2012 Document Revised: 07/12/2019 Document Reviewed: 07/15/2019 [employer] Patient Education 2020 [employer]. Follow Up Care 10/16/2024 16:12:44 With:[facility], [facility], Address:Unknown When:1-2 days With:GIRMA CORREA [address] [place] [phone] Business (1) When:1-2 days With:NANI QUINTANA DO, Orthopedic Address: [address], [place] [address] [phone] When:3-7 days Comments:Please call office SARA to confirm/verify follow up appointment. [facility] 05-28-2025 Note Discharge Instructions Thank you for allowing [facility] to assist you with your healthcare needs. The following is importantdischarge information regarding your hospital visit. Your Care Team GIRMA CORREA APRN-SHAWN Your Diagnosis Closed displaced bimalleolar fracture of right ankle Post-op pain Shortness of breath What to do next Scheduled Follow-Up Appointments Appointment Type When With Where Contact Information StatusCV Hospital Follow Up 11/08/2024 02:30 PM EDT EDY WEBER [facility] CV Confirmed PC OV 11/12/2024 03:30 PM EDT GIRMA CORREA APRN-SHAWN [facility] [place] Confirmed Follow Up Appointments Follow Up with [facility], skilled, When:Within 1-2 days Follow Up with GIRMA CORREA When:Within 1-2 days Where:[address] [place] [address] [phone] Business (1) Follow Up with NANI QUINTANA DO, Orthopedic When:Within 3-7 days Where:[address], [place] [address]- [phone] Additional Information: Please call office SARA to [...] Post-op pain Duration: 7 Days Pickup at [facility]/pharmacy #[id number] Unchanged albuterol (albuterol 2.5 mg/ 3 mL [...] by mouth Daily at bedtime Pharmacy Information [facility]/pharmacy #[id number]: [address], [place] [phone] Please take this list to your next [...] may report side effects to FDA at 9-625-GPX-5348. What other drugs will affect acetaminophen and [...] affect acetaminophen and oxycodone, including prescription and mhbv-vqn-nncrpfg medicines, vitamins, and herbal products. Not all [...] to ensure that the information provided by [employer]. ('[employer]') is accurate, up-to-date, and complete, but no guarantee is made to that effect. Drug information contained herein may be time sensitive. [employer] information has been compiled for use by healthcare practitioners and consumers in the [place] and therefore [employer] does not warrant that uses outside of the [place] are appropriate, unless specifically indicated otherwise. [employer] drug information does not endorse drugs, diagnose patients or recommend therapy. [employer] drug information isan informational resource designed to [...] effective or appropriate for any given patient. [employer] does not assume any responsibility for any aspect of healthcare administered with the aid of information [employer] provides. The information contained herein is not intended to cover all possible uses, directions, precautions, warnings, drug interactions, allergic reactions, or adverse effects. If you have questions about the drugs you are taking, check with your doctor, nurse or pharmacist. Copyright 4891-0633 [employer]. Version: 22.01. Revision Date: 12/29/2022. Education Materials [...] health care provider approves. Standard walker 1. 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 Do not slide your [...] 05/15/2006 Document Revised: 04/10/2019 Document Reviewed: 04/10/2019 [employer] Patient Education 2020 [employer]. How to Care for an External [...] with a waterproof covering. General instructions Take dbvc-dhz-cbkerti and prescription medicines only as told by [...] Document Reviewed: 07/15/2019 Elsevier Patient Education 2020 [employer]. Additional Information VACCINATE! IT SAVES LIVES! Members of the community who have not yet received the COVID-19 vaccine and would like to receive it can visit one of [facility] vaccine clinics. There are many vaccine clinic locations within the [facility]. For locations and available times, please visit [email or web address].[place].gov/. It is important to note that some COVID mobile vaccine clinics are held outdoors and may be canceled in rainy or stormy conditions. To learn more about pediatric vaccinations (ages 5-11), we invite you to visit the [facility] webpage. https://www.[facility].org/pages/9703-Tnyoe-Ivhonypcnso-Nyyktmmfyi-Zfeer-Hus stions.htmlTo learn more about the COVID-19 vaccine, we invite you to visit the CDC website for a list of frequently asked questions.https://www.cdc.gov/coronavirus/2019-ncov/vaccines/faq.html [facility] Patient Portal Access Instructions: Stay connected with your healthcare team and access your personal medical information anytime with the [facility] [employer] Patient Portal. Please follow the directions below to create your [employer] account: 1.Access the email account you provided upon registration to the hospital/physician office.2.Look for an invitation email from [facility].3.Open the email and access the invitation link: AcceptInvitation to [employer].4.Fill in the required orr to create your account. To access your account, visit [email or web address]. Click the blue button labeled "Access Patient Portal" and then log in with the username and password that you created in the steps above. You will be able to view your test results, lab results, a summary of your visits, upcoming appointments and more. There is also a convenient messaging option where you can send secure messages to your Bilibotvider. In addition, you will have the ability to download any documents or summaries to your computer and/or send the information securely to a physician. Remember that your healthcare information is confidential, so carefully consider who you will allowto register on the [facility] [employer] Patient Portal for access to your information. You can also access the [facility] [employer] Patient Portal on the [facility] [employer]where frida. Simply click on "Patient Portal" and then log into your account. If you would like to receive a full copy of your medical records, please contact the [facility] Medical Records Department by calling [phone], Monday through Monday between 8 a.m. and [...] Call your local pharmacy or go to http://bit.ly/6Q9Aa2d to find one close to you.3.Make use of household items: Use cat litter or old coffee grounds to dispose medications if other options arenot available. Mix your drugs with these household products, seal them in an airtight container andthrow it into the garbage. Call [facility]: [phone] to be sure your drugs can be [...] aware that I should contact my doctor. Patient/Medical Sales Consultant Signature: Date/Time: Relationship to Patient: Witness Name/Signature: Date/Time: Larry [id number] Note Discharge Instructions Thank you for allowing [...] Up 11/08/2024 02:30 PM EDT EDY WEBER [facility] CV Confirmed PC OV 11/12/2024 03:30 PM EDT GIRMA CORREA [facility] [place] Confirmed Follow Up Appointments Follow Up with [facility], skilled, When:Within 1-2 days Follow Up with GIRMA CORREA When:Within 1-2 days Where:[address] [place] [address] [phone] Business (1) Follow Up with NANI QUINTANA DO, Orthopedic When:Within 3-7 days Where:[address], [place] [phone] Additional Information: Please call office SARA to [...] Post-op pain Duration: 7 Days Pickup at [facility]/pharmacy #[id number] Unchanged albuterol (albuterol 2.5 mg/ 3 mL [...] bedtime Pharmacy Information [id number]: [address], [place] [phone] Please take this list to your next [...] to receive it can visit one of [facility] vaccine clinics. There are many vaccine clinic locations within the [facility]. For locations and available times, please visit [email or web address].[email or web address]/. It is important to note that some COVID mobile vaccine clinics are held outdoors and may be canceled in rainy or stormy conditions. To learn more about pediatric vaccinations (ages 5-11), we invite you to visit the [employer] webpage. https://www.[employer].org/pages/9616-Rtbli-Dbeixkjdwol-Dskhroufqd-Ievqv-Cxv stions.htmlTo learn more about the COVID-19 vaccine, we invite you to visit the CDC website for a list of frequently asked questions.https://www.cdc.gov/coronavirus/2019-ncov/vaccines/faq.html [employer] Patient Portal Access Instructions: Stay connected with your healthcare team and access your personal medical information anytime with the [employer] Patient Portal. Please follow the directions below to create your [employer] account: 1.Access the email account you provided upon registration to the hospital/physician office.2.Look for an invitation email from [facility].3.Open the email and access the invitation link: AcceptInvitation to [employer].4.Fill in the required orr to create your account. To access your account, visit [email or web address]. Click the blue button labeled "Access Patient Portal" and then log in with the username and password that you created in the steps above. You will be able to view your test results, lab results, a summary of your visits, upcoming appointments and more. There is also a convenient messaging option where you can send secure messages to your mustapha bella In addition, you will have the ability to download any documents or summaries to your computer and/or send the information securely to a physician. Remember that your healthcare information is confidential, so carefully consider who you will allowto register on the [facility] Patient Portal for access to your information. You can also access the [facility] on the [facility] Anywhere frida. Simply click on "Patient Portal" and then log into your account. If you would like to receive a full copy of your medical records, please contact the [facility] Medical Records Department by calling [phone], Monday through Monday between 8 a.m. and [...] Call your local pharmacy or go to http://CreditEase.Helpful Alliance/4H6Sg8i to find one close to you.3.Make use of household items: Use cat litter or old coffee grounds to dispose medications if other options arenot available. Mix your drugs with these household products, seal them in an airtight container andthrow it into the garbage. Call [facility]: [phone] to be sure your drugs can be [...] aware that I should contact my doctor. Patient/Medical Sales Consultant Signature: Date/Time: Relationship to Patient: Witness Name/Signature: Date/Time: [facility] [id number] Orthopaedic surgery Progress note Date of Service [...] obturator, femoral, LCN, DPN, SPN, sural, saphenous, M/HAZARDOUS MATERIALS TANKER DRIVER - Calf soft and non-tender Left Lower Extremity - No pain to left lower extremity. Walking boot in place when patient is ambulating - Motor: Hip flexion/extension, quadriceps, hamstrings, gastruc/soleus, EHL/FHL intact. - DP and PT pulse 2+. Foot warm and perfused. BCR - Sensation grossly intact L2-S2: obturator, femoral, LCN, DPN, SPN, sural, saphenous, M/HAZARDOUS MATERIALS TANKER DRIVER - Calf soft and non-tender Weight Dosing [...] SUZE MISHRA DO on 10/23/2024 07:03 AM [facility] HospitalNnhgfwqu64-09-6757 Orthopaedic surgery Progress note Date of Service [...] obturator, femoral, LCN, DPN, SPN, sural, saphenous, M/HAZARDOUS MATERIALS TANKER DRIVER - Calf soft and non-tender Left Lower Extremity - No pain to left lower extremity. Walking boot in place when patient is ambulating - Motor: Hip flexion/extension, quadriceps, hamstrings, gastruc/soleus, EHL/FHL intact. - DP and PT pulse 2+. Foot warm and perfused. BCR - Sensation grossly intact L2-S2: obturator, femoral, LCN, DPN, SPN, sural, saphenous, M/HAZARDOUS MATERIALS TANKER DRIVER - Calf soft and non-tender Weight Dosing [...] SUZE MISHRA DO on 10/23/2024 07:03 AM [facility] HospitalCzjjfpse93-37-1824 Orthopaedic surgery Progress note Date of Service [...] obturator, femoral, LCN, DPN, SPN, sural, saphenous, M/HAZARDOUS MATERIALS TANKER DRIVER - Calf soft and non-tender Left Lower Extremity - No pain to left lower extremity. Walking boot in place when patient is ambulating - Motor: Hip flexion/extension, quadriceps, hamstrings, gastruc/soleus, EHL/FHL intact. - DP and PT pulse 2+. Foot warm and perfused. 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 Walking boot in place when patient is ambulating - Motor: Hip flexion/extension, quadriceps, hamstrings, gastruc/soleus, EHL/FHL intact. - DP and PT pulse 2+. Foot warm and perfused. 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 Ortho approved protocol orders for care daily. Digitally Signed by SHAHEEN Lou on 10/18/2024 01:37 PM [facility] HospitalMbnliimu93-91-1555 Note Date of Service 10/18/2024 Chief Complaint [...] by GROVER HOFFMAN on 10/18/2024 01:11 PM [facility] HospitalXaopalmf74-52-4118 Note* Exam Date Time Procedure Performing Provider Status 10/17/24 1:14 PM XR Fluoro 1-2 Hrs Tech Time KAILEY WAHL DO; Auth (Verified) [id number] ORIGINAL EXAMINATION: TAD MD - > 1 HR TECHNIQUE: Total fluoro time is 43.2 seconds. Total exposure is 2.0531 mGy. COMPARISON: CT ankle 10/17/2024, x-ray ankle 10/16/2024. HISTORY: ORDERING SYSTEM PROVIDED HISTORY: Reason for Exam: RIGHT ANKLE FX FINDINGS: Intraoperative fluoroscopic images from external surgical fixation of a distal fibular fracture. IMPRESSION: Intraoperative fluoroscopic images. Please refer to the slitter creaser slotter operator's report for further information. I have personally reviewed the images of this examination and agree with the resident's findings and interpretation. Interpreted by: Beua Wahl Preliminary Report By: Nadya Hudson Electronically signed By Beau Wahl Dictated Date: 10/17/2024 1:42:02 PM Prelim Date: 10/17/2024 2:15:08 PM Sign Date: 10/17/2024 2:15:08 PM Ordering Provider: NANI QUINTANA [facility] HospitalFosahjej09-84-2018 Note Date of Service 10/17/2024 Chief Complaint Medical management Subjective This 54-year-old white male with a past medical history of type 2 diabetes mellitus, hypertension, COPD, HFpEF, anxiety, atrial fibrillation on Xarelto and Tikosyn [facility] after[facility] fall and subsequent ankle pain. [...] by GROVER HOFFMAN on 10/17/2024 12:52 PM [facility] [id number] Anesthesiology Consult note Patient: CARLOS ALBERTO KELLEY [...] CHANTAL WHEATLEY DO on 10/17/2024 11:13 AM [facility] HospitalWtxlxcvz85-37-4670 Note* Exam Date Time Procedure Performing Provider Status 10/17/24 10:[address] Ankle w/o Contrast Right KATHY JEAN MD; Auth (Verified) [id number] ORIGINAL EXAMINATION: CT OF THE RIGHT ANKLE [...] spanning external fixator, multiplanar 10/17. transfer from [facility]. for right ankle fracture with dislocation. [...] seen at the ankle. Interpreted by: Lucius Jean MD Preliminary Report By: Lucius Jean MD Electronically signed By Lucius Jean MD Dictated Date: 10/17/2024 1:10:32 PM Prelim Date: 10/17/2024 1:17:29 PM Sign Date: 10/17/2024 1:17:29 PM Ordering Provider: SUZE MISHRA [facility] HospitalJhtmfjvx19-69-8497 History and physical note Date of Service 10/16/2024 Chief Complaint Pt here from [facility] via [facility] after a mechanical fall causing a fracture to his right ankle. They splinted it in their ED and sent to [facility] for surgical consult. History of Present Illness Patient is a 54-year-old male who presents to the [facility] emergency department as a transfer from [facility] for his right ankle fracture. Patient [...] images of this examination and agree with conniesident's findings and interpretation. XR Ankle Minimum 3 Views Right Result Date: October 16, 2024 Verified By: TRACE FIERRO MD CLINICAL STATEMENT: IMPRESSION: No significant change in alignment post reduction. I have personally reviewed the images of this examination and agree with conniesident's findings and interpretation. XR Ankle Minimum 3 [...] Blood, q24h, for 5 day(s), Preferred Lab: [facility], Stop date 10/20/24 22:00:00 EDT Bedrest, [...] For signs/symptoms of hypoglycemia Communication Order (continuous), 10/16/24:00 EDT, Stat EKG will be obtained in the setting of new, ongoing or worsening chest discomfort/acute coronary syndrome symptoms in all nursing units and/or rhythm change in all monitored units., 10/16/24 21:21:00 EDT Complete Blood Count(CBC), 10/16/24:21:00 EDT, Timed Study (collect at specified time), Blood, q24h, for 5 day(s), Preferred Lab: [facility], Stop date 10/20/24 22:00:00 EDT Complete Metabolic Panel(CMP), 10/16/24:21:00 EDT, URGENT (collect within 2 hrs), Blood, Once, Nurse Collect, Preferred Lab: [facility], Stop date 10/16/24 21:37:00 EDT Consult to Physician, 10/16/24 21:21:00 EDT, HOSPITALISTLARRY (For Consultation Assignment OnlyNO other Orders), Routine, medical clearance, follow medically Diet Order, 10/16/24 21:21:00 EDT, Start Meal: Next meal, Regular, Constant Order, : N/A, : N/A Electrocardiogram(EKG), 10/16/24 21:21:00 EDT, Complete by Nursing Incentive Spirometer, 10/16/24 21:21:00 EDT, [id number] Intake and Output, 10/16/24 21:21:00 EDT, q8h (2p, 10p, 6a) IV Catheter Insertion/Care(Peripheral IV Insertion/Care), 10/16/24 21:21:00 EDT, IV Care: Once, 18 gauge angiocath, if possible Pulse Oximeter - Intermittent, 10/16/24 21:21:00 EDT, AsDirected, PRN order, On admission and as indicated Type and Screen, 10/16/24 21:21:00 EDT, URGENT (collect within 2 hrs), Blood, Once, Nurse Collect, Preferred Lab: [facility], Stop date 10/16/24 21:21:00 EDT Vital [...] RIC ARELLANO DO on 10/16/2024 09:43 PM [id number] Anesthesiology Consult note Patient: CARLOS ALBERTO KELLEY [...] scale 7-10 mupirocin 2% topical ointment: 1 rfida, Nostril, each, BID Prescriptions Prescribed Nexletol 180 [...] list: Medical Asthma exacerbation / SNOMED CT 8187779117 / Confirmed COPD exacerbation / SNOMED CT 4379301101 / Confirmed Atopic dermatitis / SNOMED CT 46362586 / Confirmed Atypical chest pain / SNOMED CT 944126725 / Confirmed Morbid obesity with BMI of 40.0-44.9, adult / SNOMED CT 7457814837 / Confirmed Bronchitis / SNOMED CT 80872564 / Confirmed Cardiomyopathy / SNOMED CT 889797680 / Confirmed CHF with cardiomyopathy / SNOMED CT 57707933 / Confirmed Cough / SNOMED CT 42995330 / Confirmed Dental abscess / SNOMED CT 998019354 / Confirmed Depression / SNOMED CT 40336691 / Confirmed Dyspnea / SNOMED CT 956066931 / Confirmed Generalized anxiety disorder / SNOMED CT 35633982 / Confirmed Hypertension associated with type 2 diabetes mellitus / SNOMED CT 6657029808 / Confirmed Insomnia / SNOMED CT 101846875 / Confirmed LVH (left ventricular hypertrophy) / SNOMED CT 12477423 / Confirmed Moderate asthma / SNOMED CT 8104780246 / Confirmed Near syncope / SNOMED CT 3253925916 / Confirmed Chewing tobacco nicotine dependence / SNOMED CT 05338342 / Confirmed KOFFI (obstructive sleep apnea) / SNOMED CT 721849502 / Confirmed Right knee pain / SNOMED CT 5121841893 / Confirmed Paroxysmal atrial fibrillation / SNOMED CT 969564361 / Confirmed Screening for ischemic heart disease / SNOMED CT 158687683 / Confirmed Screening for colon cancer / SNOMED CT 996352437 / Confirmed Statin intolerance / SNOMED CT 6228512281 / Confirmed Tachyarrhythmia / SNOMED CT 81690835 / Confirmed Type 2 diabetes mellitus with hemoglobin A1c goal of less than 7.0% / SNOMED CT 550757900 / Confirmed Type 2 diabetes mellitus with hyperlipidemia / SNOMED CT 036130276 / Confirmed, Active Problems (32) Asthma exacerbation [...] Histories Past Medical History: Resolved Morbid obesity (346880770): Resolved. Diabetes mellitus (934520986): Resolved. Hypertension (8095095204): Resolved. BMI 45.0-49.9, adult (7379106285): Resolved. Anxiety (77340795): Resolved. Prediabetes (9161919064): Resolved. Obstructive sleep apnea (847466545): Resolved. Right flank pain (427916612): Resolved. Hyperlipidemia (70798142): Resolved. Mass of arm (915126839): Resolved. Family History: Cancer Father Heart disease Mother Grandparent Stroke Father Procedure history: Excision ([id number]) on 03/25/2024 at 53 Years. Comments: 03/26/2024 7:50 Karol Curry LPN excision of multilobulated lipomatous mass right forearm Echocardiogram ([id number]) on 01/31/2024 at 53 Years. Cardioversion (654977070) on 12/23/2022 at 52 Years. Echocardiogram ([id number]) on 11/11/2022 at 52 Years. Comments: 03/20/2023 [...] atrial pressure is 15 mm Hg Elbow (6375383829). Comments: 07/11/2022 8:26 EST - Long, RN Jade bursitis - right Social History: Social & [...] Temp Oral36.7 DegC (OCTOBER 17:12) Heart Rate Oijrnfzmy52 bpm (OCTOBER 17 00:00) WIA353 mmHg (OCTOBER 17:12) DBP82 mmHg (OCTOBER 17:12) BMI44.92 (OCTOBER 17:29) Measurements from flowsheet : Measurements 10/17/2024 1:29 EDT Height 177.8 cm Height in inches 70 inch(es) Admission Weight 142 kg Weight Lbs 312.4 lb [place] Body Weight 73.00 kg Type of Scale [...] PRN medication effectiveness Partial Nail Bed Color Napanoch Capillary Refill < 2 seconds Dorsalis Pedis Pulse, Left 2+ Normal Radial Pulse, Left 2+ Normal Radial Pulse, Right 2+ Normal Respirations Unlabored Respiratory Pattern Regular All Lobes Breath Sounds Clear Abdomen Description Non-distended, Rounded Abdomen Palpation Non-Tender Passing Flatus Yes Bowel Sounds All Quadrants Present Skin Description Napanoch, Dry Skin Temperature Warm Skin Integrity Pressure points intact Skin Turgor Elastic All Extremity Description Napanoch, Normal for ethnicity Temperature All Extremities Warm Mucous Membrane Color Napanoch Mucous Membrane Description Moist Ankle Right Incision, Wound Dressing/Activity: Assessed Incision, Wound Dressing: Elastic wrap bandage Wound Associated Pain: With activity, mobilization Buttock Inferior, Inner Skin Abnormality Type: Non-pressure ulcer Skin Abnormality Color: Napanoch, Red Incision, Wound Surrounding Tissue: Normal skin [...] #1 We May Share PHI MARILYN OSPINA [phone] Designated Person #1 Relationship Sibling Designated Person #2 We May Share PHI Designated Person #2 We May Share PHI Privacy Restrictions Requested None Height 177.8 cm Height in inches 70 inch(es) Admission Weight 142 kg Weight Lbs 312.4 lb [place] Body Weight 73.00 kg Type of Scale [...] evident Teaching Method Explanation Preferred Spoken Language Ghanaian Preferred Written Language Ghanaian Disease Process General Education Signs/Symptoms to report, [...] 10/16/2024 16:28 EDT Status N/A [place] Screen 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 They splinted it in their ED and sent to [place] for surgical consult. Place Where Injury/Illness Occurred Other: [facility] Anticoagulants Taken In Past 6 Wks. No [...] Non-distended, Symmetric Abdomen Palpation Non-Tender Skin Description Napanoch, Normal for ethnicity, Dry Skin Temperature Warm Mucous Membrane Color [place]och Mucous Membrane Description Moist Neurological Symptoms Patient denies Level of Consciousness Alert Eye Opening Response Shelby Spontaneously Best Motor Response Luis Felipe Obeys simple commands Best Verbal Response Shelby Oriented Shelby Coma Score 15 CLARA Yes Left Upper [...] No Weight Loss No Preferred Spoken Language Ghanaian Preferred Written Language Ghanaian Tracking Group ED Tracking Group Tracking Acuity 3 ED Diabetic Patient No Mode of Transfer Ground ambulance Ambulance Service [facility] Positioning Repositions self Standard [...] ED Triage Adults . Assessment and Plan [employer] Anesthesiologists (ASA) physical status classification: [...] diabetes mellitus with hyperlipidemia Historical Anxiety Diabetes [facility] Hyperlipidemia Hypertension Mass of arm Obstructive sleep apnea Prediabetes Right flank pain . Digitally Signed by MELISSA MARIN MD on 10/17/2024 06:21 AM Digitally Signed by DELORES BRAVO on 10/17/2024 07:17 AM [id number] Note Date of Service October 16, 2024 [...] KARLENE BARCENAS DO on 10/16/2024 10:38 PM [facility] [id number] Note* Exam Date Time Procedure Performing Provider Status 10/16/24 10:24 PM Electrocardiogram - EKG - CV SA SULY PAULINO MD; Auth (Verified) ECG Final Report SINUS RHYTHM LEFT ANTERIOR FASCICULAR BLOCK LOW VOLTAGE, PRECORDIAL LEADS Electronic Signature: ALIZA PAULINO MD 10/17/2024 18:58:09 [facility] [id number] Note* Exam Date Time Procedure Performing Provider Status 10/16/24 10:07 PM XR Ankle Minimum 3 Views Left TRACE ROUSE MD; Auth (Verified) [id number] ORIGINAL EXAMINATION: THREE XRAY VIEWS OF THE [...] 10/16/2024 10:39:42 PM Ordering Provider: RIC ARELLANO [id number] History and physical note Date of Service 10/16/2024 Chief Complaint Pt here from [facility] via squad after a mechanical fall causing a fracture to his right ankle. They splinted it in their ED and sent to [place] for surgical consult. History of Present Illness Patient is a 54-year-old male who presents to the [facility] emergency department as a transfer from [facility] for his right ankle fracture. Patient [...] Blood, q24h, for 5 day(s), Preferred Lab: [facility], Stop date 10/20/24 22:00:00 EDT Bedrest, [...] Blood, q24h, for 5 day(s), Preferred Lab: [facility], Stop date 10/20/24 22:00:00 EDT Complete Metabolic Panel(CMP), 10/16/24 21:21:00 EDT, URGENT (collect within 2 hrs), Blood, Once, Nurse Collect, Preferred Lab: [facility], Stop date 10/16/24 21:37:00 EDT Consult to Physician, 10/16/24 21:21:00 EDT, HOSPITALISTLARRY (For Consultation Assignment OnlyNO other Orders), Routine, medical clearance, follow medically Diet Order, 10/16/24 21:21:00 EDT, Start Meal: Next meal, Regular, Constant Order, : N/A, : N/A Electrocardiogram(EKG), 10/16/24 21:21:00 EDT, Complete by Nursing Incentive Spirometer, 10/16/24 21:21:00 EDT, [id number] Intake and Output, 10/16/24 21:21:00 EDT, q8h (2p, 10p, 6a) IV Catheter Insertion/Care(Peripheral IV Insertion/Care), 10/16/24 21:21:00 EDT, IV Care: Once, 18 gauge angiocath, if possible Pulse Oximeter - Intermittent, 10/16/24 21:21:00 EDT, AsDirected, PRN order, On admission and as indicated Type and Screen, 10/16/24 21:21:00 EDT, URGENT (collect within 2 hrs), Blood, Once, Nurse Collect, Preferred Lab: [facility], Stop date 10/16/24 21:21:00 EDT Vital [...] RIC ARELLANO DO on 10/16/2024 09:43 PM [facility] HospitalIdlxgijs27-86-3514 Note* Exam Date Time Procedure Performing Provider Status 10/16/24 8:42 PM XR Ankle Minimum 3 Views Right TRACE ROUSE MD; Auth (Verified) [id number] ORIGINAL EXAMINATION: THREE XRAY VIEWS OF THE [...] 10/16/2024 9:20:54 PM Ordering Provider: RIC ARELLANO [facility] HospitalLhipdgxm11-70-1160 Note* Exam Date Time Procedure Performing Provider Status 10/16/24 7:09 PM XR Ankle Minimum 3 Views Right TRACE ROUSE MD; Auth (Verified) [id number] ORIGINAL EXAMINATION: THREE XRAY VIEWS OF THE [...] 10/16/2024 7:53:07 PM Ordering Provider: EM GARCIA [facility] HospitalJbkdturk29-79-2076 Note* Exam Date Time Procedure Performing Provider Status 10/16/24 5:43 PM XR Ankle Minimum 3 Views Right TRACE ROUSE MD; Auth (Verified) [id number] ORIGINAL EXAMINATION: THREE XRAY VIEWS OF THE [...] Date: 10/16/2024 6:28:12 PM [facility] + Plan noteExtracted from: Title:Ortho History [...] Blood, q24h, for 5 day(s), Preferred Lab: [facility], Stop date 10/20/24 22:00:00 EDT Bedrest, [...] Blood, q24h, for 5 day(s), Preferred Lab: [facility], Stop date 10/20/24 22:00:00 EDT Complete Metabolic Panel(CMP), 10/16/24 21:21:00 EDT, URGENT (collect within 2 hrs), Blood, Once, Nurse Collect, Preferred Lab: [facility], Stop date 10/16/24 21:37:00 EDT Consult to Physician, 10/16/24 21:21:00 EDT, HOSPITALISTLARRY (For Consultation Assignment Only NO other Orders), Routine, medical clearance, follow medically Diet Order, 10/16/24 21:21:00 EDT, Start Meal: Next meal, Regular, Constant Order, : N/A, : N/A Electrocardiogram(EKG), 10/16/24 21:21:00 EDT, Complete by Nursing Incentive Spirometer, 10/16/24 21:21:00 EDT, [id number] Intake and Output, 10/16/24 21:21:00 EDT, q8h (2p, 10p, 6a) IV Catheter Insertion/Care(Peripheral IV Insertion/Care), 10/16/24 21:21:00 EDT, IV Care: Once, 18 gauge angiocath, if possible Pulse Oximeter - Intermittent, 10/16/24 21:21:00 EDT, AsDirected, PRN order, On admission and as indicated Type and Screen, 10/16/24 21:21:00 EDT, URGENT (collect within 2 hrs), Blood, Once, Nurse Collect, Preferred Lab: [facility], Stop date 10/16/24 21:21:00 EDT Vital [...] Appointment Date:11/08/2024 02:30:00 PM Scheduled Provider:EDY WEBER Location:[facility] Appointment Type:[facility] Hospital Follow Up Appointment Date:11/12/2024 03:30:00 PM Scheduled Provider:GIRMA CORREA Location:[facility] Appointment Type: OV Future Scheduled Tests Laboratory* Basic Metabolic Panel 02/07/24 * Basic Metabolic Panel 12/10/24 * Basic Metabolic Panel 02/19/24 * Magnesium Level 02/07/24 * Complete Blood Count 08/27/24 * Complete Metabolic Panel 08/27/24 * N-Terminal proBNP 08/27/24 [facility] 05-09-[facility]25 Hospital Discharge instructions Patient Education [...] Slowly return to your usual activities. Take wpdw-fjt-uclkexk and prescription medicines only as told by [...] 02/07/2002 Document Revised: 10/15/2018 Document Reviewed: 10/15/2018 [employer] Patient Education 2020 [employer]. 10/04/2024 21:03:30 Pursed Lip Breathing Pursed Lip [...] exercise. Follow these instructions at home: Take lmxd-yok-wpsaudc and prescription medicines only as told by [...] 02/21/2009 Document Revised: 04/27/2018 Document Reviewed: 04/06/2017 [employer] Patient Education 2020 [employer]. 10/04/2024 21:03:27 Cough, Adult Cough, Adult Coughing [...] Follow these instructions at home: Medicines Take lgan-epq-dnchcgw and prescription medicines only as told by [...] of a condition that needs treatment. Take xyfa-sss-dlexqac and prescription medicines only as told by [...] 11/11/2011 Document Revised: 06/03/2019 Document Reviewed: 06/03/2019 [employer] Patient Education 2020 [employer]. Follow Up Care 10/02/2024 02:08:49 With:readmission score is 13 Address:Unknown When: Unknown With:GIRMA CORREA Address: [address] [place] [address] [phone] Business (1) When:1-2 days [facility] 05-09-2025 Note Discharge Instructions Thank you for allowing [facility] to assist you with your healthcare needs. The following is importantdischarge information regarding your hospital visit. Your Care Team GIRMA CORREA Your Diagnosis Shortness of breath What to do next Scheduled Follow-Up Appointments Appointment Type When With Where Contact Information StatusPC OV 10/23/2024 04:00 PM EDT GIRMA CORREA [facility] Confirmed CV OV Hospital Follow Up 11/08/2024 02:30 PM EDT EDY WEBER [facility] [place] CV Confirmed Follow Up Appointments Follow Up with readmission score is 13 Follow Up with GIRMA CORREA When:Within 1-2 days Where:[address] [facility] [place] [address] [phone] Business (1) The Following Activity and Diet [...] days after discharge, please call [facility] at [phone]. Post Acute Orders No qualifying data available. [...] a day Take with food Pickup at [facility]/pharmacy #[id number] Unchanged acetaminophen (Tylenol) by mouth As needed [...] Two (2) times a day Pickup at [facility]/pharmacy #[id number] Unchanged dulaglutide (Trulicity Pen 1.5 mg/ 0.5 [...] by mouth Daily at bedtime Pickup at [facility]/pharmacy #[id number] Unchanged spironolactone (spironolactone 25 mg oral tablet) 1 tab(s) by mouth Once a day Duration: 90 Days Unchanged tiZANidine (tiZANidine 2 mg oral tablet) 1 tab(s) by mouth Every 8 hours as needed for as needed for muscle spasm Duration: 7 Days Unchanged traZODone (traZODone 100 mg oral tablet) 1 tab(s) by mouth Daily at bedtime Pharmacy Information [facility]/pharmacy #[id number]: [facility] [address] [place], [place] [phone] Please take this list to your next doctor s visit. Bring all medications you take, including over the counter medications, herbals and other supplements with you to your doctor s visit. Patients and families are reminded to discard old lists and to update any records with all medication providers or retail pharmacies. Medication Leaflets hydroxyzine (shelley DROX ee zeen) Vistaril What is the most important information I [...] may report side effects to FDA at 9-704-GQZ-0984. What other drugs will affect hydroxyzine? Taking [...] may interact with hydroxyzine, including prescription and kgdk-zxm-dkcjdgm medicines, vitamins, and herbal products. Not all [...] to ensure that the information provided by [employer] ('[employer]') is accurate, up-to-date, and complete, but no guarantee is made to that effect. Drug information contained herein may be time sensitive. [employer] information has been compiled for use by healthcare practitioners and consumers in the [place] and therefore [employer] does not warrant that uses outside of the [place] are appropriate, unless specifically indicated otherwise. [employer] drug information does not endorse drugs, diagnose patients or recommend therapy. [employer] drug information isan informational resource designed to [...] effective or appropriate for any given patient. [employer] does not assume any responsibility for any aspect of healthcare administered with the aid of information [employer] provides. The information contained herein is not intended to cover all possible uses, directions, precautions, warnings, drug interactions, allergic reactions, or adverse effects. If you have questions about the drugs you are taking, check with your doctor, nurse or pharmacist. Copyright 9659-7448 [employer] Version: 8.01. Revision Date: 08/10/2016. furosemide (oral/injection) [...] wireless accessories such as remote control, or [employer] devices. Do not reuse a needle, syringe [...] blood pressure, such as diet pills or nnwaa-lvf-jlbh medicine. What are the possible side effects [...] may report side effects to FDA at 9-434-ARP-9855. What other drugs will affect furosemide? Sometimes [...] drugs may affect furosemide, including prescription and hrlk-cqr-jgmtocf medicines, vitamins, and herbal products. Not all [...] to ensure that the information provided by [employer]') is accurate, up-to-date, and complete, but no guarantee is made to that effect. Drug information contained herein may be time sensitive. [employer] information has been compiled for use by healthcare practitioners and consumers in the [place] and therefore [employer] does not warrant that uses outside of the [place] are appropriate, unless specifically indicated otherwise. [employer] drug information does not endorse drugs, diagnose patients or recommend therapy. [employer] drug information isan informational resource designed to [...] effective or appropriate for any given patient. [employer] does not assume any responsibility for any aspect of healthcare administered with the aid of information [employer] provides. The information contained herein is not intended to cover all possible uses, directions, precautions, warnings, drug interactions, allergic reactions, or adverse effects. If you have questions about the drugs you are taking, check with your doctor, nurse or pharmacist. Copyright [employer] Version: 20.. Revision Date: 11/07/2023. cetirizine (oral/injection) (se GUPTA ryley wagner) All Day Allergy (Cetirizine), All Day Allergy [...] may report side effects to FDA at 1-421-AJL-7873. What other drugs will affect cetirizine? Using cetirizine with other drugs that make you drowsy can worsen this effect. Ask your doctor before using opioid medication, a sleeping pill, a muscle relaxer, or medicine for anxiety or seizures. Other drugs may affect cetirizine, including prescription and oile-fji-uqzteog medicines, vitamins,and herbal products. Tell your doctor [...] to ensure that the information provided by [employer]') is accurate, up-to-date, and complete, but no guarantee is made to that effect. Drug information contained herein may be time sensitive. [employer] information has been compiled for use by healthcare practitioners and consumers in the [place] and therefore [employer] does not warrant that uses outside of the [place] are appropriate, unless specifically indicated otherwise. [employer] drug information does not endorse drugs, diagnose patients or recommend therapy. [employer] drug information isan informational resource designed to [...] effective or appropriate for any given patient. [employer] does not assume any responsibility for any aspect of healthcare administered with the aid of information [employer] provides. The information contained herein is not intended to cover all possible uses, directions, precautions, warnings, drug interactions, allergic reactions, or adverse effects. If you have questions about the drugs you are taking, check with your doctor, nurse or pharmacist. Copyright 0885-0474 [employer]. Version: 13.. Revision Date: 11/16/2022. dofetilide (mathias [...] may report side effects to FDA at 0-264-MLU-7283. What other drugs will affect dofetilide? Other drugs may interact with dofetilide, including prescription and wylw-wje-dceepwv medicines, vitamins, and herbal products. Tell each [...] to ensure that the information provided by [employer] ('[employer]') is accurate, up-to-date, and complete, but no guarantee is made to that effect. Drug information contained herein may be time sensitive. [employer] information has been compiled for use by healthcare practitioners and consumers in the [place] and therefore [employer] does not warrant that uses outside of the [place] are appropriate, unless specifically indicated otherwise. [employer] drug information does not endorse drugs, diagnose patients or recommend therapy. [employer] drug information isan informational resource designed to [...] effective or appropriate for any given patient. [employer] does not assume any responsibility for any aspect of healthcare administered with the aid of information [employer] provides. The information contained herein is not intended to cover all possible uses, directions, precautions, warnings, drug interactions, allergic reactions, or adverse effects. If you have questions about the drugs you are taking, check with your doctor, nurse or pharmacist. Copyright 2746-1195 [employer] Version: 4.01. Revision Date: 09/09/2015. allopurinol (oral/injection) [...] and call your (more content not included)... [facility]egvcqrz08-02-6140 Pastoral care Progress note Pastoral Care Note Entered On: 10/04/2024 16:17 EDT Performed On: 10/04/2024 14:56 EDT by Sanjay Lucas [facility] Care Type of Pastoral Visit : Initial [...] by Sanjay Lucas on 10/04/2024 04:16 PM [facility] HospitalQcobgzrr49-20-0012 Discharge summary Date of Service 10/04/2024 Discharge Diagnosis Paroxysmal atrial fibrillation Tachyarrhythmia induced cardiomyopathy Heart failure with improved EF (EF 30 to 35% in October 2022 to 55% in 2023) Moderate to severe LVH Mild pulmonary hypertension Severely dilated LA (LA 5.1 cm, DANIEL??) Obesity and KOFIF (intolerant to CPAP) Hypertension Diabetes mellitus Hospital [...] When:Within 1-2 days Where:[address] [facility] [place] [address] [phone] Business (1) Follow Up Appointments No qualifying data available. Follow Up Labs/Studies Discharge Labs No Follow-up Labs Discharge Studies No Follow-up Studies Discharge Diet No qualifying data available. Discharge Activity No qualifying data available. Readmission Risk/Palliative Score LACE Score: 13 (10/02/24 10:21:00) Palliative Total Score: 1 (10/02/24 10:21:00) Digitally Signed by DUSTIN RICHARD MD on 10/04/2024 12:27 PM [facility] HospitalWxclousn19-20-9571 Discharge summary Date of Service 10/04/2024 Discharge [...] When:Within 1-2 days Where:[address] [place] [address]- [phone] Business (1) Follow Up Appointments No qualifying data available. Follow Up Labs/Studies Discharge Labs No Follow-up Labs Discharge Studies No Follow-up Studies Discharge Diet No qualifying data available. Discharge Activity No qualifying data available. Readmission Risk/Palliative Score LACE Score: 13 (10/02/24 10:21:00) Palliative Total Score: 1 (10/02/24 10:21:00) Digitally Signed by DUSTIN RICHARD MD on 10/04/2024 12:27 PM [id number] Cardiology Progress note Date of Service 10/03/2024 [...] DUSTIN RICHARD MD on 10/03/2024 01:50 PM [id number] Note* Exam Date Time Procedure Performing Provider Status 10/03/24 10:08 PM Electrocardiogram - EKG - CV JOHNIE VELÁZQUEZ MD; Auth (Verified) ECG Final Report SINUS RHYTHM LEFT AXIS DEVIATION LOW VOLTAGE, PRECORDIAL LEADS Electronic Signature: JOHNIE VELÁZQUEZ MD 10/04/2024 21:58:08 [id number] Note* Exam Date Time Procedure Performing Provider Status 10/03/24 4:01 PM Echocardiogram, Adult - CV ALIZA PAULINO MD; Auth (Verified) [id number] Cardiology Progress note Date of Service 10/03/2024 [...] DUSTIN RICHARD MD on 10/03/2024 01:50 PM [id number] Note* Exam Date Time Procedure Performing Provider Status 10/03/24 10:03 AM Electrocardiogram - EKG - CV JOHNIE VELÁZQUEZ MD; Auth (Verified) ECG Final Report SINUS RHYTHM LOW VOLTAGE, PRECORDIAL LEADS CONSIDER ANTERIOR INFARCT Electronic Signature: JOHNIE VELÁZQUEZ MD 10/04/2024 21:57:56 [id number] Note* Exam Date Time Procedure Performing Provider Status 10/02/24 10:04 PM Electrocardiogram - EKG - CV JOHNIE VELÁZQUEZ MD; Auth (Verified) ECG Final Report SINUS RHYTHM LEFT ANTERIOR FASCICULAR BLOCK PROLONGED QT INTERVAL Electronic Signature: JOHNIE VELÁZQUEZ MD 10/03/2024 19:52:07 [facility] [id number] History and physical note Date of Service [...] Diabetes mellitus Patient is currently in in [facility] A-fib. Rate is relatively well-controlled. [...] DUSTIN RICHARD MD on 10/02/2024 03:28 PM [facility] [id number] Note Date of Service October 02, 2024 [...] only), Blood, Once, Nurse Collect, Preferred Lab: [facility], Stop date 10/03/24 5:00:00 EDT Electrocardiogram(EKG), [...] by MARILUZ BUI on 10/02/2024 02:36 PM [facility] [id number] Note Date of Service October 02, 2024 [...] only), Blood, Once, Nurse Collect, Preferred Lab: [facility], Stop date 10/03/24 5:00:00 EDT Electrocardiogram(EKG), [...] by MARILUZ BUI on 10/02/2024 02:36 PM [id number] Evaluation + Plan noteExtracted from: Title:History and [...] Appointment Date:10/23/2024 04:00:00 PM Scheduled Provider:GIRMA CORREA Location:[facility] Appointment Type:PC OV Appointment Date:11/08/2024 02:30:00 PM Scheduled Provider:EDY WEBER Location:[facility] Appointment Type:[facility] Follow Up Diagnostic Tests Pending * Urinalysis w/ C&S if Indicated 10/02/24 Future Scheduled Tests Laboratory* Basic Metabolic Panel 02/07/24 * Basic Metabolic Panel 12/10/24 * Basic Metabolic Panel 02/19/24 * Magnesium Level 02/07/24 * Complete Blood Count 08/27/24 * Complete Metabolic Panel 08/27/24 * N-Terminal proBNP 08/27/24 [facility] 05-07-[facility]25 Note* Exam Date Time Procedure Performing Provider Status 10/02/24 1:53 PM Electrocardiogram - EKG - CV Brant VELÁZQUEZ MD; Auth (Verified) ECG Final Report SINUS RHYTHM PROBABLE LEFT ATRIAL ENLARGEMENT Left axis deviation Electronic Signature: JOHNIE VELÁZQUEZ MD 10/03/2024 19:51:33 [facility] [id number] History and physical note Date of Service [...] Diabetes mellitus Patient is currently in in [facility] A-fib. Rate is relatively well-controlled. [...] DUSTIN RICHARD MD on 10/02/2024 03:28 PM [facility] [id number] Respiratory therapy Hospital Progress note Respiratory Therapy [...] by CURTIS Patton on 10/02/2024 11:12 AM [facility] [id number] Note* Exam Date Time Procedure Performing Provider Status 10/02/24 8:23 AM Electrocardiogram - EKG - CV Brant VELÁZQUEZ MD; Auth (Verified) ECG Final Report ATRIAL FIBRILLATION LEFT ANTERIOR FASCICULAR BLOCK Electronic Signature: JOHNIE VELÁZQUEZ MD 10/03/2024 19:51:22 [facility] [id number] Note* Exam Date Time Procedure Performing Provider Status 10/02/24 6:24 AM Electrocardiogram - EKG - CV Brant VELÁZQUEZ MD; Auth (Verified) ECG Final Report ATRIAL FIBRILLATION WITH RAPID VENTRICULAR RESPONSE Right axis deviation Electronic Signature: JOHNIE VELÁZQUEZ MD 10/03/2024 19:51:11 [facility] [id number] Nurse Progress note bryon Nicole [phone] Digitally Signed by Halley Staples RN on 10/02/2024 04:26 AM [facility]05-07-2025 Nurse Progress note ready bed at main, transport called at 0230 ETA 90 min Digitally Signed by Halley Staples RN on 10/02/2024 04:22 AM [facility]05-07-2025 Nurse Progress note ready bed at main, transport called at 0230 ETA 90 min Digitally Signed by Halley Staples RN on 10/02/2024 04:22 AM [facility]05-07-2025 Note* Exam Date Time Procedure Performing Provider Status 10/02/24 1:43 AM XR Chest 1 View DARNELL MOLINA MD; A [facility] (Verified) [id number] ORIGINAL EXAMINATION: ONE XRAY VIEW OF THE [...] 2:02:33 AM Ordering Provider: DELORES MURO [facility]05-07-2025 Note* Exam Date Time Procedure Performing Provider Status 10/02/24 12:38 AM EKG [ED AOH] - CV JINA DELORES STONE; A [facility] (Verified) ECG Final Report Atrial fibrillation Inferior infarct, old Probable anteroseptal infarct, old Prolonged QT interval Baseline wander in lead(s) III,V1,V2,V5,V6 Compared to ECG at 08/13/2024 11:03:57 Electronic Signature: DELORES MURO DO 10/02/2024 02:28:42 [facility]10-30-2024 Note The microscopic examination is performed, except in the case of Gross Only. [facility] 10-29-2024 Note The microscopic examination is performed, except in the case of Gross Only. [facility] 10-29-2024 Note The microscopic examination is performed, except in the case of Gross Only. [facility] 10-29-2024 Note The microscopic examination is performed, except in the case of Gross Only. [facility] 10-29-2024 Note The microscopic examination is performed, except in the case of Gross Only. [facility] 10-29-2024 Note The microscopic examination is performed, except in the case of Gross Only. [facility] 10-29-2024 Note The microscopic examination is performed, except in the case of Gross Only. [facility] 09-11-2024 Evaluation + Plan note Future Scheduled Tests Laboratory* Basic Metabolic Panel 02/07/24 * Basic Metabolic Panel 12/10/24 * Basic Metabolic Panel 02/19/24 * Magnesium Level 02/07/24 * Complete Blood Count 08/27/24 * Complete Metabolic Panel 08/27/24 * N-Terminal proBNP 08/27/24 [facility] 09-09-2024 Note. MICRO - Microbiology PROCEDURE: Blood [...] Locations *1: This test was performed at: [address]09-09-2024 Note. MICRO - Microbiology PROCEDURE: Blood Culture [...] Locations *1: This test was performed at: [address]09-09-2024 Note. MICRO - Microbiology PROCEDURE: Blood Culture [...] Locations *1: This test was performed at: [address], [address] [place] [address] [id number] Note. MICRO - Microbiology PROCEDURE: Blood Culture [...] Locations *1: This test was performed at: [address], [address] [place] [address] [id number] Hospital Discharge instructions Patient Education 02/01/2024 17:18:13 Atrial Fibrillation, Cxqw-lb-Bxnl Atrial Fibrillation Atrial fibrillation is a type [...] Follow these instructions at home: Medicines Take blws-woi-hrxkyzu and prescription medicines only as told by [...] 02/21/2009 Document Revised: 07/19/2018 Document Reviewed: 07/06/2018 [employer] Patient Education 2020 [employer]. Follow Up Care 01/31/2024 00:20:11 With:GIRMA CORREA APRN-[facility] Address: [address] [place] [address]- When:1-2 days Comments:Please call the office to schedule a hospital follow-up appointment. [facility] 09-05-2024 Note Discharge Instructions Thank you for allowing [facility] to assist you with your healthcare needs. The following is importantdischarge information regarding your hospital visit. Your Care Team GIRMA CORREA Your Diagnosis Shortness of breath What to do next Instructions From Your Doctor Resume taking all your usual medications Keep yourself hydrated Follow-up with your primary care physician and autobody technician Scheduled Follow-Up Appointments Appointment Type When With Where Contact Information StatusPC Wellness Annual w/Labs 02/13/2024 03:30 PM EDT GIRMA CORREA [facility] Confirmed Follow Up Appointments Follow Up with GIRMA CORREA When:Within 1-2 days Where:[address] [place] [address]- Additional Information: Please call the office to [...] Follow these instructions at home: Medicines Take qiah-qjl-icuznwm and prescription medicines only as told by [...] 02/21/2009 Document Revised: 07/19/2018 Document Reviewed: 07/06/2018 [employer] Patient Education 2020 [employer] Additional Information VACCINATE! IT SAVES LIVES! Members of the community who have not yet received the COVID-19 vaccine and would like to receive it can visit one of [place] vaccine clinics. There are many vaccine clinic locations within the State. For locations and available times, please visit [email or web address].[place].gov/. It is important to note that some COVID mobile vaccine clinics are held outdoors and may be canceled in rainy or stormy conditions. To learn more about pediatric vaccinations (ages 5-11), we invite you to visit the [facility] webpage. [email or web address]://www.[email or web address]/pages/[email or web address]-[email or web address] stions.htmlTo learn more about the COVID-19 vaccine, we invite you to visit the CDC website for a list of frequently asked questions.https://www.cdc.gov/coronavirus/2019-ncov/vaccines/faq.html [employer] Patient Portal Access Instructions: Stay connected with your healthcare team and access your personal medical information anytime with the [employer] Patient Portal. Please follow the directions below to create your [employer] account: 1.Access the email account you provided upon registration to the hospital/physician office.2.Look for an invitation email from [facility].3.Open the email and access the invitation link: AcceptInvitation to [facility].4.Fill in the required orr to create your account. To access your account, visit [email or web address]. Click the blue button labeled "Access Patient [...] who you will allowto register on the [employer] Patient Portal for access to your information. You can also access the [employer] Patient Portal on the [employer] frida. Simply click on "Patient Portal" and then log into your account. If you would like to receive a full copy of your medical records, please contact the [facility] Medical Records Department by calling [phone], Monday through Monday between 8 a.m. and [...] Call your local pharmacy or go to http://[employer]Ease.Helpful Alliance/7A9Iq6n to find one close to you.3.Make use of household items: Use cat litter or old coffee grounds to dispose medications if other options arenot available. Mix your drugs with these household products, seal them in an airtight container andthrow it into the garbage. Call [facility]: [phone] to be sure your drugs can be [...] COPY. Signatures Patient Education Materials Atrial Fibrillation, Jaac-jr-Pmcv Medication Leaflets My discharge plan and instructions have been reviewed and explained to me and I,CARLOS ALBERTO KELLEY understand my current condition and have read and understand these discharge instructions. I have received awritten copy of the plan/instructions. If I have questions, I am aware that I should contact my doctor. 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 The patient presented [facility] the [facility] on [facility] as a transfer from [place] for A-fib with RVR. 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 Blood Glucose Test Strips: See Instructions, 1 bottle of 100 Test once daily, # 1 EA, 11 Refill(s), Pharmacy: [facility], 177.8, cm, 11/28/23 13:54:00 EDT, Height, 151.4, kg, 11/28/23 13:54:00 EDT, Dosing Weight FLUoxetine 20 mg oral capsule: Dose : 20 mg = 1 cap(s), Oral, qDay, # 30 cap(s), 3 Refill(s), Pharmacy: [facility], 177.8, cm, 11/28/23 13:54:00 EDT, Height, kg, 11/28/23 13:54:00 EDT,Dosing Weight Lancets: See Instructions, qs 1 month supply Test once daily, # 1 EA, 11 Refill(s), Pharmacy: [facility], 177.8, cm, 11/28/23 13:54:00 EDT, Height, 151.4, kg, 11/28/23 13:54:00 EDT, Dosing Weight Lasix 40 mg oral tablet: See Instructions, 1 tab in AM and 0.5 tab in PM, # 135 tab(s), 3 Refill(s), Pharmacy: [facility], 177.8, cm, 11/28/23 13:54:00 EDT, Height, kg, 11/28/23 13:54:00 EDT, Dosing Weight Symbicort 80 mcg-4.5 mcg/inh Inhaler: Dose = 2 puff(s), Inhalation, BID, # 10.2 gram(s), 3 Refill(s), Pharmacy: [facility], 177.8, cm, 11/28/23 13:54:00 EDT, Height, kg, 11/28/23 13:54:00 EDT, Dosing Weight Tikosyn 250 mcg oral capsule: Dose : 250 mcg = 1 cap(s), Oral, BID, # 180 cap(s), 3 Refill(s), Pharmacy: [facility]/pharmacy #[id number], 177.8, cm, 11/28/23 13:54:00 EDT, Height, kg, 11/28/23 13:54:00 EDT, Dosing Weight Toprol-XL 100 mg oral tablet, extended release: Dose : 100 mg = 1 tab(s), Oral, BID, do not crush or chew, # 180 tab(s), 3 Refill(s), Pharmacy: [facility], Shortness of breath, 177.8, cm, 11/28/23 13:54:00 EDT, Height, kg, 11/28/23 13:54:00 EDT, Dosing Weight Trulicity Pen 1.5 mg/0.5 mL subcutaneous solution: Dose : 1.5 mg =, Subcutaneous, qWeek, sent in absence of PCP, # 4 EA, 3 Refill(s), Pharmacy: [facility], 177.8, cm, 11/28/23 13:54:00EDT, Height, kg, 11/28/23 13:54:00 EDT, Dosing Weight Vistaril 25 mg oral capsule: Dose : 25 mg = 1 cap(s), Oral, QID, PRN as needed for anxiety, X 30 day(s), # 120 cap(s), 5 Refill(s), 06/09/24 16:10:00 EST, Pharmacy: [facility], 177.8, cm, 11/28/23 13:54:00 EDT, Height, kg, 11/28/23 13:54:00 EDT, Dosing Weight Xarelto 20 mg oral tablet: Dose : 20 mg = 1 tab(s), Oral, qHS, # 90 tab(s), 3 Refill(s), Pharmacy: [facility], 177.8, cm, 11/28/23 13:54:00 EDT, Height, 151.4, kg, 11/28/23 13:54:00 EDT, Dosing Weight allopurinol 100 mg oral tablet: Dose : 100 mg = 1 tab(s), Oral, qDay, # 90 tab(s), 3 Refill(s), Pharmacy: [facility], 177.8, cm, 11/28/23 13:54:00 EDT, Height, kg, 11/28/23 13:54:00 EDT, Dosing Weight cetirizine 10 mg oral tablet: Dose : 10 mg = 1 tab(s), Oral, Daily, # 90 tab(s), 3 Refill(s), Pharmacy: [facility], 177.8, cm, 11/28/23 13:54:00 EDT, Height, kg, 11/28/23 13:54:00 EDT,Dosing Weight nystatin 100,000 units/g topical cream: Apply 1 frida, Topical, BID, X 10 day(s), # 30 gram(s), 1 Refill(s), Pharmacy: [facility]/pharmacy #[id number], Cream, 177, cm, 01/12/24 9:42:00 EDT, Height, 148.6, kg, 01/12/24 9:42:00 EDT, Dosing Weight omeprazole 40 mg oral delayed release capsule: Dose : 40 mg = 1 cap(s), Oral, BID, before a meal., # 180 cap(s), 3 Refill(s), Pharmacy: [facility], 177.8, cm, 11/28/23 13:54:00 EDT, Height, kg, 11/28/23 13:54:00 EDT, Dosing Weight rosuvastatin 20 mg oral tablet: Dose : 20 mg = 1 tab(s), Oral, Daily, # 100 tab(s), 3 Refill(s), Pharmacy: [facility], 177.8, cm, 11/28/23 13:54:00 EDT, Height, kg, 11/28/23 13:54:00 EDT, Dosing Weight sacubitril-valsartan 49 mg-51 mg oral tablet: Dose = 1 tab(s), Oral, BID, # 180 tab(s), 3 Refill(s), Pharmacy: [facility], 177.8, cm, 11/28/23 13:54:00 EDT, Height, kg, 11/28/23 13:54:00 EDT, Dosing Weight spironolactone 25 mg oral tablet: Dose : 25 mg = 1 tab(s), Oral, qDay, # 90 tab(s), 3 Refill(s), Pharmacy: [facility], 177.8, cm, 11/28/23 13:54:00 EDT, Height, kg, 11/28/23 13:54:00 EDT, Dosing Weight tiZANidine 2 mg oral tablet: Dose : 2 mg = 1 tab(s), Oral, q8h, PRN as needed for muscle spasm, # 90 tab(s), 2 Refill(s), Pharmacy: [facility], 177.8, cm, 11/28/23 13:54:00 EDT, Height, kg, 11/28/23 13:54:00 EDT, Dosing Weight traZODone 100 mg oral tablet: Dose : 100 mg = 1 tab(s), Oral, qHS, # 90 tab(s), 3 Refill(s), Pharmacy: [facility], 177.8, cm, 11/28/23 13:54:00 EDT, [...] list: Medical Asthma exacerbation / SNOMED CT 3335600989 / Confirmed Anxiety / SNOMED CT 59561731 / Confirmed Atopic dermatitis / SNOMED CT 90839111 / Confirmed BMI 45.0-49.9, adult / SNOMED CT 2352438609 / Confirmed Cardiomyopathy / SNOMED CT 074623644 / Confirmed Diabetes mellitus / SNOMED CT 661078111 / Confirmed Generalized anxiety disorder / SNOMED CT 78042584 / Confirmed Hyperlipidemia / SNOMED CT 45344849 / Confirmed Hypertension / SNOMED CT 4541997630 / Confirmed Insomnia / SNOMED CT 235931539 / Confirmed Moderate asthma / SNOMED CT 9427282211 / Confirmed Morbid obesity / SNOMED CT 912088104 / Confirmed Chewing tobacco nicotine dependence / SNOMED CT 56546737 / Confirmed Obstructive sleep apnea / SNOMED CT 282875782 / Confirmed Right knee pain / SNOMED CT 0054357072 / Confirmed Paroxysmal atrial fibrillation / SNOMED CT 688438647 / Confirmed Screening for ischemic heart disease / SNOMED CT 587412107 / Confirmed Screening for colon cancer / SNOMED CT 681380047 / Confirmed Prediabetes / SNOMED CT 5688498227 / Confirmed Right flank pain / SNOMED CT 103819478 / Confirmed Type 2 diabetes mellitus with hemoglobin A1c goal of less than 7.0% / SNOMED CT 110477540 / Confirmed Wheezing / SNOMED CT 51447360 / Confirmed, Active Problems (26) Anxiety Asthma [...] Mother Grandparent Stroke Father Procedure history: Cardioversion ([id number]) on 12/23/2022 at 52 Years. Echocardiogram ([id number]) on 11/11/2022 at 52 Years. Comments: 03/20/2023 [...] atrial pressure is 15 mm Hg Elbow ([id number]). Comments: 07/11/2022 8:26 CRISTINO Sinha, SHAHEEN Hansen [...] On and Limits Checked Nail Bed Color Napanoch Capillary Refill < 2 seconds Heart Sounds [...] Elimination Voiding, no difficulties All Extremity Description Napanoch Skin Temperature Warm Temperature All Extremities Warm Skin Description Napanoch, Dry Skin Integrity Intact Skin Turgor Non-Elastic Mucous Membrane Color Napanoch Mucous Membrane Description Moist Neurological Language Able to speak clearly Neurological Symptoms Patient denies Gait Unable to assess Extremity Movement Equal Swallowing Difficulty None Characteristics of Communication Appropriate Characteristics of Speech Clear Facial Symmetry Symmetric Level of Consciousness Alert Aspiration Risk None Eye Opening Response Shelby Spontaneously Best Motor Response Shelby Obeys simple commands Best Verbal Response Shelby Oriented Luis Felipe Coma Score 15 CLARA [...] On and Limits Checked Nail Bed Color Napanoch Capillary Refill < 2 seconds Heart Sounds ICU S1S2 Heart Rhythm Irregular Cardiac Rhythm Sinus rhythm Monitoring Lead II, V5/MCL5 AL Interval 0.16 second(s) QRS Duration 0.08 second(s) [...] Elimination Voiding, no difficulties All Extremity Description Napanoch Skin Temperature Warm Temperature All Extremities Warm Skin Description Napanoch, Dry Skin Integrity Intact Skin Turgor Non-Elastic Mucous Membrane Color Napanoch Mucous Membrane Description Moist Neurological Language Able to speak clearly Neurological Symptoms Patient denies Gait Unable to assess Extremity Movement Equal Swallowing Difficulty None Characteristics of Communication Appropriate Characteristics of Speech Clear Facial Symmetry Symmetric Level of Consciousness Alert Aspiration Risk None Eye Opening Response Shelby Spontaneously Best Motor Response Luis Felipe Obeys simple commands Best Verbal Response Luis Felipe Oriented Shelby Coma Score 15 CLARA Yes Strength All [...] date/time 01/31/2024 22:20 Provider Notified 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 Notification Method Pager Information Communicated Medication request [...] On and Limits Checked Nail Bed Color Napanoch Capillary Refill < 2 seconds Heart Sounds [...] Movement Makes facial grimaces All Extremity Description Napanoch Skin Temperature Warm Temperature All Extremities Warm Skin Description Napanoch, Dry Skin Integrity Intact Skin Turgor Non-Elastic Mucous Membrane Color Napanoch Mucous Membrane Description Moist Sensory Perception [place] [...] Felipe Obeys simple commands Best Verbal Response Shelby Oriented Shelby Coma Score 15 CLARA Yes Left Pupil [...] On and Limits Checked Nail Bed Color Napanoch Capillary Refill < 2 seconds Heart Sounds [...] intact Skin Turgor Non-Elastic Mucous Membrane Color Napanoch Mucous Membrane Description Moist Neurological Language Able to speak clearly Neurological Symptoms Patient denies Extremity Movement Equal Swallowing Difficulty None Characteristics of Communication Appropriate Characteristics of Speech Clear Facial Symmetry Symmetric Level of Consciousness Alert Aspiration Risk None Eye Opening Response Shelby Spontaneously Best Motor Response Shelby Obeys simple commands Best Verbal Response Shelby Oriented Shelby Coma Score 15 CLARA Yes Left Pupil [...] of Bed Elevated 30 01/31/2024 15:38 EDT [facility] Current Living Situation I have a steady place to live [facility] Current Issues Living Environment None [facility] Worried Food Running Out P12M Never true [facility] Food Gone, No Money To Buy P12M Never true [facility] No Transport Med/Appt/Work P12M No [facility] Utilities Threaten Shut Off P12M No [facility] Anyone Physically Hurt You Never (1) [facility] Anyone Insult Or Talk Down To You Never (1) [facility] Anyone Threaten You With Harm Never (1) [facility] Anyone Scream Or Curse At You Never (1) [facility] Safety Total Score 4 Living Situation Lives with family Discharge To, Anticipated Home independently Anticipated Discharge Date 02/02/2024 Transition Planning Note Transition Planning Initial Assessment 01/31/2024 15:36 EDT Primary Care Phone Message Transition of Care sent from [facility] 01/31/2024 14:59 EDT heparin 9,000 unit(s) unit(s) Dextrose 5% Premix Diluent 90 mL mL 01/31/2024 14:43 EDT [place] Body Weight 72.7 kg Home Diet Regular Weight Chg, Unintentional Nutrition Hx Weight stable per avoca history Appetite Good Nutrition Plan of Care Dietitian follow up/monitor, Encourage PO feedings, Participate in team conference Nutrition Follow-Up Needed Yes Days until Wig [employer]er Follow Up Seven days Adult Nutrition Initial Assessment/Plan Adult Nutrition Assessment/Plan 01/31/2024 14:22 EDT Transition of Care Note Transition of Care sent from [facility] 01/31/2024 14:00 EDT Hand Right 01/30/2024 20 [...] On and Limits Checked Nail Bed Color Napanoch Capillary Refill < 2 seconds Heart Rhythm [...] Description Normal for ethnicity Mucous Membrane Color Napanoch Mucous Membrane Description Moist Hand Right 01/30/2024 [...] On and Limits Checked Nail Bed Color Napanoch Capillary Refill < 2 seconds Heart Rhythm [...] intact Skin Turgor Non-Elastic Mucous Membrane Color Napanoch Mucous Membrane Description Moist Continuous IV Infusions [...] Alert Aspiration Risk None Eye Opening Response Shelby Spontaneously Best Motor Response Shelby Obeys simple commands Best Verbal Response Luis [...] On and Limits Checked Nail Bed Color Napanoch Capillary Refill < 2 seconds Heart Rhythm Irregular Pretibial edema Bilateral Edema Ratin+ trace/2mm Cardiac Rhythm Atrial fibrillation Monitoring Lead II, V6/MCL6 Alarms On and Functional Yes Respirations Unlabored Respi (more content not included)... [id number] NoteSINUS RHYTHM IVCD MISSING LEAD(S): V1,V2,V3,V4,V5 Electronic Signature: MOY WATTS MD 02/01/2024 11:10:55[facility] 09-04-2024 Cardiology Consult note Date of [...] anxiety and gout who initially presented to [facility] on 01/30/2024 for shortness of breath [...] not tolerate Cardizem drip. Patient transferred to [facility] for further management. Placed on Levophed. [...] (s): 1.87 H Assessment/Plan A-fib with RVR ([id number] 2) Near syncopal episode Tachycardia mediated cardiomyopathy [...] Will continue to follow. Patient seen with autobody technician Dr. Hartley who agreed with plan. Please [...] MICHELLE HENRY MD on 01/31/2024 12:53 PM [facility] [id number] Note* Exam Date Time Procedure Performing Provider Status 01/31/24 4:20 PM Echocardiogram, Adult - CV Auth (Verified) [facility] 09-04-2024 Note. MICRO - Microbiology PROCEDURE: [...] Locations *1: This test was performed at: [address], [address] [place], [place] [address]-31-2024 Note. MICRO - Microbiology PROCEDURE: Blood Culture [...] Locations *1: This test was performed at: [address], [address] [place], [place] [address]-31-2024 Evaluation + Plan noteExtracted from: Title:History and [...] prophylactically got a dose of ceftriaxone at [place]. We will continue with prophylactic ceftriaxone dose [...] atrial fibrillation with rapid ventricular rate at [facility] admitted to the ICU overnight [...] Appointment Date:02/13/2024 03:30:00 PM Scheduled Provider:GIRMA CORREA Location:[facility] Appointment Type: Wellness Annual w/Labs Diagnostic Tests Pending * Culture Respiratory with Gram Stain 01/31/24 * APTT 02/01/24 Future Scheduled Tests Laboratory* Basic Metabolic Panel 04/01/23 * Prostate Specific Antigen 02/07/24 * A1C Hemoglobin 02/07/24 * Lipid Profile 02/07/24 * Complete Metabolic Panel 02/07/24 [facility] 09-04-2024 History and physical note Date [...] evaluated On arrival to the ER at [place], patient was febrile 37.4, tachycardic 133, tachypneic 21, BP 90/76, was saturating 96% on room air. Labs done at [place] 01/30/2024 revealed pO2 51 on the gases [...] prophylactically got a dose of ceftriaxone at [place].We will continue with prophylactic ceftriaxone dose as [...] CINDY HERNANDEZ MD on 01/31/2024 08:06 AM [facility] [id number] Cardiology Consult note Date of Service 01/31/2024 [...] anxiety and gout who initially presented to [facility] on 01/30/2024 for shortness of breath [...] not tolerate Cardizem drip. Patient transferred to [facility] for further management. Placed on Levophed. [...] (s): 1.87 H Assessment/Plan A-fib with RVR ([id number] 2) Near syncopal episode Tachycardia mediated cardiomyopathy [...] Will continue to follow. Patient seen with autobody technician Dr. Hartley who agreed with plan. Please [...] MICHELLE HENRY MD on 01/31/2024 12:53 PM [facility] [id number] NoteATRIAL FIBRILLATION LAD, CONSIDER LEFT ANTERIOR FASCICULAR BLOCK LOW VOLTAGE, PRECORDIAL LEADS BORDERLINE T ABNORMALITIES, INFERIOR LEADS BORDERLINE PROLONGED QT INTERVAL Electronic Signature: MOY WATTS MD 02/01/2024 [facility] Note. MICRO - Microbiology [...] Locations *1: This test was performed at: [facility], [address] [place] [address], [facility] , [facility] ([place])01-31-2024 Note. MICRO - Microbiology PROCEDURE: Blood Culture [...] Locations *1: This test was performed at: [facility], [address] [place] [address], [id number] , [facility] ([place])01-31-2024 History and physical note Date of Service [...] evaluated On arrival to the ER at [place], patient was febrile 37.4, tachycardic 133, tachypneic 21, BP 90/76, was saturating 96% on room air. Labs done at [place] 01/30/2024 revealed pO2 51 on the gases [...] prophylactically got a dose of ceftriaxone at [place].We will continue with prophylactic ceftriaxone dose as [...] CINDY HERNANDEZ MD on 01/31/2024 08:06 AM [facility] [id number] Note ORIGINAL EXAMINATION: CT OF THE HEAD [...] MD SAMY JONES MD 01/30/2024 21:01:46[facility] 03-13-2024 Hospital Discharge instructions Patient Education 08/09/2023 [...] get worse or if new symptoms appear. 9917-5935 [employer]. [address] [place] [address]. All rights reserved. This information is not intended as a substitute for professional medical care. Always follow yourhealthcare professional's instructions. Follow Up Care 08/09/2023 21:02:01 With:GIRMA CORREA Address: [address] [place] [address] [phone] Business (1) When:5-7 days Comments:Use warm compresses, Tylenol as discussed, return if any worsening or concerning symptoms. Follow-up closely with your doctor. [facility] 03-13-2024 Note Discharge Instructions Thank you for allowing [facility] to assist you with your healthcare needs. [...] symptoms. Follow-up closely with your doctor. Where: [place] [address]- [phone] Business (1) Allergies NKA Medications Please ask [...] get worse or if new symptoms appear. 3513-5728 [employer]. [address] [place] [address]. All rights reserved. This information is not intended as a substitute for professional medical care. Always follow yourhealthcare professional's instructions. Additional Information VACCINATE! IT SAVES LIVES! Members of the community who have not yet received the COVID-19 vaccine and would like to receive it can visit one of [facility] vaccine clinics. There are many vaccine clinic locations within the [facility]. For locations and available times, please visit www.gettheshot.coronavirus.[place].gov/. It is important to note that some COVID mobile vaccine clinics are held outdoors and may be canceled in rainy or stormy conditions. To learn more about pediatric vaccinations (ages 5-11), we invite you to visit the [facility] webpage. https://www.[facility].org/pages/7808-Vyspf-Ipyzegjslyv-Ftmqsqnnbn-Cefjw-Kxa stions.htmlTo learn more about the COVID-19 vaccine, we invite you to visit the CDC website for a list of frequently asked questions. https://www.cdc.gov/coronavirus/2019-ncov/vaccines/faq.html [facility] Patient Portal Access Instructions: Stay connected with your healthcare team and access your personal medical information anytime with the [employer] Patient Portal. If you would like a full copy of your medical records please contact the [facility] Medical Records Department Monday through Monday between 8a.m. and 4:30p.m. Please follow the directions below to access the portal: 1.Access the email account you provided upon registration to the [facility].2.Look for an invitation email from [facility].3.Open the email and access the invitation link: Accept Invitation to [facility] [employer]4.Fill in the required orr to create your account. Sign into [email or web address] with your username and password that you [...] you will allow to register on the [facility] Patient Portal for access to your information. You can also access the [facility] [employer] Patient Portal on the Pandora[employer]. Simply click on "Health Records" under "HealthData" [...] Call your local pharmacy or go to http://CreditEase.Helpful Alliance/4L0Bz1t to find one close to you.3.Make use of household items: Use cat litter or old coffee grounds to dispose medications if other options arenot available. Mix your drugs with these household products, seal them in an airtight container andthrow it into the garbage. Call [facility]: [phone] to be sure your drugs can be [...] aware that I should contact my doctor. Patient/Medical Sales Consultant Signature: Date/Time: Relationship to Patient: Witness Name/Signature: Date/Time: [facility]01-16-2024 Hospital Discharge instructions Patient Education 06/13/2023 01:01:02 [...] exposed to secondhand smoke. You may use rjvu-ugq-qmegbes medicine to control fever or pain, unless [...] loosen secretions in the nose and lungs. Qwww-kzy-lkocqup cough, cold, and sore-throat medicines will not [...] shortness of breath, or pain with breathing 3987-3226 [employer]. [address] [place] [address]. All rights reserved. This information is not intended as a substitute for professional medical care. Always follow yourhealthcare professional's instructions. Follow Up Care 06/13/2023 00:01:18 With:GIRMA CORREA Address: [address] [facility] [place] [address]- [phone] Business (1) When:3-7 days Comments:Schedule appointment for [...] the ED if symptoms worsen. [facility] 01-16-2024 Note Discharge Instructions Thank you for allowing [facility] to assist you with your healthcare needs. [...] to the ED if symptoms worsen. Where: [facility] [address] [facility] [place] [address]- [phone] Business (1) Allergies NKA Medications Please ask [...] exposed to secondhand smoke. You may use sugs-nat-ijqvtaf medicine to control fever or pain, unless [...] loosen secretions in the nose and lungs. Ijva-elt-hznuhwd cough, cold, and sore-throat medicines will not [...] shortness of breath, or pain with breathing 7476-9162 [employer]. [address] [place] [address]. All rights reserved. This information is not intended as a substitute for professional medical care. Always follow yourhealthcare professional's instructions. Additional Information VACCINATE! IT SAVES LIVES! Members of the community who have not yet received the COVID-19 vaccine and would like to receive it can visit one of [facility] vaccine clinics. There are many vaccine clinic locations within the [facility]. For locations and available times, please visit www.gettheshot.coronavirus.[place].gov/. It is important to note that some COVID mobile vaccine clinics are held outdoors and may be canceled in rainy or stormy conditions. To learn more about pediatric vaccinations (ages 5-11), we invite you to visit the [facility] webpage. https://www.[facility].org/pages/9094-Psnap-Ijjojnltzyu-Dypobwbdpi-Jvecn-Zzh stions.htmlTo learn more about the COVID-19 vaccine, we invite you to visit the CDC website for a list of frequently asked questions. https://www.cdc.gov/coronavirus/2019-ncov/vaccines/faq.html [facility] [employer] Patient Portal Access Instructions: Stay connected with your healthcare team and access your personal medical information anytime with the [facility] Patient Portal. If you would like a full copy of your medical records please contact the [facility] Medical Records Department Monday through Monday between 8a.m. and 4:30p.m. Please follow the directions below to access the portal: 1.Access the email account you provided upon registration to the [facility].2.Look for an invitation email from [facility].3.Open the email and access the invitation link: Accept Invitation to [facility]4.Fill in the required orr to create your account. Sign into www.[employer] with your username and password that you [...] you will allow to register on the [facility] Patient Portal for access to your information. You can also access the [facility] Patient Portal on the [employer] frida. Simply click on "Health Records" under [...] Call your local pharmacy or go to http://CreditEase.Helpful Alliance/2H3Np6o to find one close to you.3.Make use of household items: Use cat litter or old coffee grounds to dispose medications if other options arenot available. Mix your drugs with these household products, seal them in an airtight container andthrow it into the garbage. Call [facility]: [phone] to be sure your drugs can be [...] been reviewed and explained to me and I,CALROS ALBERTO KELLEY understand my current condition and have read and understand these discharge instructions. I have received awritten copy of the plan/instructions. If I have questions, I am aware that I should contact my doctor. Patient/Medical Sales Consultant Signature: Date/Time: Relationship to Patient: Witness Name/Signature: Date/Time: [facility]01-16-2024 Note ORIGINAL EXAMINATION: ONE XRAY VIEW OF [...] Date: 06/13/2023 12:39:50 AM Ordering Provider: DEMI [facility]01-12-2024 Hospital Discharge instructions Patient Education 06/09/2023 20:03:33 Atrial Fibrillation, Ogak-ju-Mxzg Atrial Fibrillation Atrial fibrillation is a type [...] Follow these instructions at home: Medicines Take lwml-msg-cuqdavl and prescription medicines only as told by [...] 02/21/2009 Document Revised: 07/19/2018 Document Reviewed: 07/06/2018 [employer] Patient Education 2020 [employer]. Follow Up Care 06/06/2023 16:24:50 With:GIRMA CORREA Address: [address] [place], [place] [address]- [phone] When: Unknown Comments:PLEASE CALL THIS OFFICE TO SCHEDULE A HOSPITAL FOLLOW UP APPOINTMENT With:MOY WATTS MD Address: [address] [place], [place] [address]- [phone] When:07/17/2023 15:15:00 Comments:THIS APPOINTMENT WILL BE WITH ZHOU ESPINOSA CNP [facility] 01-12-2024 Note Discharge Instructions Thank you for allowing [facility] to assist you with your healthcare needs. The following is importantdischarge information regarding your hospital visit. Your Care Team GIRMA CORREA Your Diagnosis Shortness of breath What to do next Scheduled Follow-Up Appointments Appointment Type When With Where Contact InformationPC OV 06/20/2023 02:30 PM EST GIRMA CORREA [facility] CV OV 07/17/2023 03:15 PM EST ZHOU ESPINOSA [facility] Follow Up Appointments Follow Up with MOY WATTS MD When 07/17/2023 03:15 PM EST Why: THIS APPOINTMENT WILL BE WITH ZHOU ESPINOSA CNP [facility] [address] [facility] [address] [place] [address]- [phone] Follow Up with GIRMA CORREA When Why: PLEASE CALL THIS OFFICE TO SCHEDULE A HOSPITAL FOLLOW UP APPOINTMENT Where: [address] [place] [address]- [phone] The Following Activity and Diet Have Been [...] times a day Refills: 2 Pickup at [facility]29704 Changed FLUoxetine (FLUoxetine 10 mg oral capsule) 1 cap by mouth Once a day Pickup at [facility] #[id number] Unchanged allopurinol (allopurinol 100 mg oral tablet) [...] Daily at bedtime Pharmacy Information [facility] #[id number]: [address], [place] [phone] Please take this list to your next [...] may report side effects to FDA at 1-078-OYD-4030. What other drugs will affect dofetilide? Other drugs may interact with dofetilide, including prescription and ufdy-eij-xlsjpkd medicines, vitamins, and herbal products. Tell each [...] to ensure that the information provided by [employer]. ('[employer]') is accurate, up-to-date, and complete, but no guarantee is made to that effect. Drug information contained herein may be time sensitive. [employer] information has been compiled for use by healthcare practitioners and consumers in the [place] and therefore [employer] does not warrant that uses outside of the [place] are appropriate, unless specifically indicated otherwise. [employer] drug information does not endorse drugs, diagnose patients or recommend therapy. [employer] drug information isan informational resource designed to [...] effective or appropriate for any given patient. [employer] does not assume any responsibility for any aspect of healthcare administered with the aid of information [employer] provides. The information contained herein is not intended to cover all possible uses, directions, precautions, warnings, drug interactions, allergic reactions, or adverse effects. If you have questions about the drugs you are taking, check with your doctor, nurse or pharmacist. Copyright 6391-3287 [employer]. Version: 4.01. Revision Date: 09/09/2015. Education Materials [...] Follow these instructions at home: Medicines Take btcq-qke-unvojzo and prescription medicines only as told by [...] Document Reviewed: 07/06/2018 Elsevier Patient Education 2020 [employer] Additional Information VACCINATE! IT SAVES LIVES! Members of the community who have not yet received the COVID-19 vaccine and would like to receive it can visit one of [facility] vaccine clinics. There are many vaccine clinic locations within the [facility]. For locations and available times, please visit https://[email or web address].[place].gov/. It is important to note that some COVID mobile vaccine clinics are held outdoors and may be canceled in rainy or stormy conditions. To learn more about pediatric vaccinations (ages 5-11), we invite you to visit the [facility] webpage. https://www.[facility].org/pages/7053-Mhzbc-Xhefzqtuvrp-Smdyxvlajj-Lpnpk-Qnk stions.htmlTo learn more about the COVID-19 vaccine, we invite you to visit the CDC website for a list of frequently asked questions.https://www.cdc.gov/coronavirus/2019-ncov/vaccines/faq.html [facility] [employer] Patient Portal Access Instructions: Stay connected with your healthcare team and access your personal medical information anytime with the [employer] Patient Portal. Please follow the directions below to create your [employer] account: 1.Access the email account you provided upon registration to the hospital/physician office.2.Look for an invitation email from [facility].3.Open the email and access the invitation link: AcceptInvitation to [facility].4.Fill in the required orr to create your account. To access your account, visit [employer]/AzureBookerOneChart. Click the blue button labeled "Access Patient [...] who you will allowto register on the [facility] [employer] Patient Portal for access to your information. You can also access the [facility] Patient Portal on the [employer] frida. Simply click on "Patient Portal" and then log into your account. If you would like to receive a full copy of your medical records, please contact the [facility] Medical Records Department by calling [phone], Monday through Monday between 8 a.m. and [...] Call your local pharmacy or go to http://CreditEase.Helpful Alliance/3R7Ua4e to find one close to you.3.Make use of household items: Use cat litter or old coffee grounds to dispose medications if other options arenot available. Mix your drugs with these household products, seal them in an airtight container andthrow it into the garbage. Call [facility]: [phone] to be sure your drugs can be [...] COPY. Signatures Patient Education Materials Atrial Fibrillation, Ghxk-hs-Crny Medication Leaflets Selina My discharge plan and instructions have been reviewed and explained to me and IWARREN RAY J understand my current condition and have read and understand these discharge instructions. I have received awritten copy of the plan/instructions. If I have questions, I am aware that I should contact my doctor. Patient/Medical Sales Consultant Signature: Date/Time: Relationship to Patient: Witness Name/Signature: Date/Time: [facility]qad[facility]qt47-[facility]-2026 Discharge summary Date of Service 06/09/23 Discharge [...] as long as QT is reviewed by youth accommodation support worker fellow, Constant order Ordered: Discharge,06/09/23 12:44:00 [...] # 30 cap(s), 2 Refill(s), Pharmacy: [facility] #[id number], 176, cm, 06/07/23 13:36:00 EST, Height, kg, 06/07/23 13:36:00 EST, Dosing Weight Ordered: Tikosyn 250 mcg oral capsule,Dose : 250 mcg = 1 cap(s), Oral, BID, # 60 cap(s), 2 Refill(s), Pharmacy: [facility] #[id number], 176, cm, 06/07/23 13:36:00 EST, Height, kg, [...] When 07/07/2023 01:00 PM EST [facility] [address] [facility] [address] [place] [address] [phone] Follow Up with GIRMA CORREA When Why: PLEASE CALL THIS OFFICE TO SCHEDULE A HOSPITAL FOLLOW UP APPOINTMENT Where: [address] [place] [address] [phone] Follow Up Appointments No qualifying data available. Follow Up Labs/Studies Discharge Labs No Follow-up Labs Discharge Studies No Follow-up Studies Discharge Diet Discharge Diet - Ordered -- Type of Diet: Cardiac, Sodium limit: 2 gm, 06/09/23 12:44:00 EST Discharge Activity No qualifying data available. Condition on Discharge stable Discharge Disposition home Digitally Signed by AMELIA RENAE MD on 06/09/2023 12:53 PM [id number] Discharge summary Date of Service 06/09/23 Discharge [...] as long as QT is reviewed by youth accommodation support worker fellow, Constant order Ordered: Discharge,06/09/23 12:44:00 [...] qDay, # 30 cap(s), 2 Refill(s), Pharmacy: [facility] #[id number], 176, cm, 06/07/23 13:36:00 EST, Height, kg, 06/07/23 13:36:00 EST, Dosing Weight Ordered: Tikosyn 250 mcg oral capsule,Dose : 250 mcg = 1 cap(s), Oral, BID, # 60 cap(s), 2 Refill(s), Pharmacy: [facility] #[id number], 176, cm, 06/07/23 13:36:00 EST, Height, kg, [...] When 07/07/2023 01:00 PM EST Where: [address] [place] [address]- [phone] 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 Follow Up Labs/Studies Discharge Labs No Follow-up Labs Discharge Studies No Follow-up Studies Discharge Diet Discharge Diet - Ordered -- Type of Diet: Cardiac, Sodium limit: 2 gm, 06/09/23 12:44:00 EST Discharge Activity No qualifying data available. Condition on Discharge stable Discharge Disposition home Digitally Signed by AMELIA RENAE MD on 06/09/2023 12:53 PM [facility] [id number] NoteSINUS RHYTHM LEFT AXIS DEVIATION LOW VOLTAGE, PRECORDIAL LEADS PROLONGED QT INTERVAL POOR R-WAVE PROGRESSION Electronic Signature: SADE STRAUSS MD 06/09/2023 09:53:23[facility] 01-11-2024 Cardiology Progress note Date of [...] AMELIA RENAE MD on 06/08/2023 03:03 PM [facility] [id number] Cardiology Progress note Date of Service 06/08/23 [...] AMELIA RENAE MD on 06/08/2023 03:03 PM [facility] [id number] NoteSINUS RHYTHM LAD, CONSIDER LEFT ANTERIOR FASCICULAR BLOCK LOW VOLTAGE, PRECORDIAL LEADS BORDERLINE PROLONGED QT INTERVAL Poor R wave progression Electronic Signature: SADE STRAUSS MD 06/09/2023 09:53:37[facility] 01-10-2024 NoteSINUS RHYTHM BORDERLINE IVCD WITH LAD LOW VOLTAGE, PRECORDIAL LEADS CONSIDER ANTERIOR INFARCT Electronic Signature: SADE STRAUSS MD 06/08/2023 09:48:12[facility] 01-10-2024 History and physical note Date [...] 107 ms, QT interval approximately 450 ms. AL interval 184 ms. Renal function, electrolytes pending. [...] AMELIA RENAE MD on 06/07/2023 04:29 PM [facility] [id number] NoteSINUS RHYTHM LAD, CONSIDER LEFT ANTERIOR FASCICULAR BLOCK LOW VOLTAGE, PRECORDIAL LEADS Electronic Signature: SADE STRAUSS MD 06/08/2023 09:47:58[facility] [facility] History and physical note Date [...] 107 ms, QT interval approximately 450 ms. AL interval 184 ms. Renal function, electrolytes pending. [...] AMELIA RENAE MD on 06/07/2023 04:29 PM [id number] Evaluation + Plan noteExtracted from: Title:History and [...] Appointment Date:06/20/2023 02:30:00 PM Scheduled Provider:GIRMA CORREA Location:[facility] Appointment Type:PC OV Appointment Date:07/17/2023 03:15:00 PM Scheduled Provider:ZHOU ESPINOSA Location:[facility] Appointment Type:CV OV Future Scheduled Tests Laboratory* Basic Metabolic Panel 04/01/23 * A1C Hemoglobin 06/09/23 * Lipid Profile 06/09/23 * Complete Metabolic Panel 06/09/23 [facility] 01-10-2024 NoteSINUS RHYTHM MARKEDLY POSTERIOR QRS AXIS LOW VOLTAGE, PRECORDIAL LEADS BORDERLINE PROLONGED QT INTERVAL Electronic Signature: SADE STRAUSS MD 06/08/2023 09:47:38[facility] 12-08-2023 Hospital Discharge instructions Patient Education [...] in vomit, stools (black or red color) 3297-5733 [employer]. [address] [place] [address]. All rights reserved. This information is not [...] fainting Blood in your stool or urine 0563-1018 [employer]. [address] [place] [address]. All rights reserved. This information is not [...] will help ease pain. You may use lehz-fym-bdvgytu pain medicine such as acetaminophen or ibuprofen [...] suddenly or lasts more than an hour 2854-7021 [employer]. [address] [place] [address]. All rights reserved. This information is not intended as a substitute for professional medical care. Always follow yourhealthcare professional's instructions. Follow Up Care 05/05/2023 17:11:14 With:GIRMA CORREA Address: [address] [facility] [place] [address] [phone] Business (1) When:5-7 days Comments:Follow-up as needed if symptoms or not improving.Limit activity as tolerated.Ice/cold compresses topainful areas.Use Tylenol, Advil or Aleve for pain as needed.Use Yoder as prescribed for severe pain as needed.Take 10 deep breaths on the incentive stridor every hour while awake for the next week as advised.Return to the ED if symptoms worsen. [facility] 12-08-2023 Note Discharge Instructions Thank you for allowing [facility] to assist you with your healthcare needs. [...] or Aleve for pain as needed. Use Yoder as prescribed for severe pain as needed. Take 10 deep breaths on the incentive stridor every hour while awake for the next week as advised. Return to the ED if symptoms worsen. Where: [address] [facility] [place] [address] [phone] Business (1) Allergies NKA Medications Please ask your primary doctor or pharmacist before taking any other medication not listed, including over the counter drugs, herbal medications, vitamins and or supplements as they may interact withyour home medications. What How Much When Why Instructions Last Dose New acetaminophen-hydrocodone (Yoder 325- 5 mg oral tablet) 1 tab(s) [...] may report side effects to FDA at [phone]-YPL-4518. What other drugs will affect acetaminophen and [...] affect acetaminophen and hydrocodone, including prescription and jacc-thz-ykaiqsj medicines, vitamins, and herbal products. Not all [...] to ensure that the information provided by [employer]. ('Multum') is accurate, up-to-date, and complete, but no guarantee is made to that effect. Drug information contained herein may be time sensitive. [employer] information has been compiled for use by healthcare practitioners and consumers in the [place] and therefore [employer] does not warrant that uses outside of the [place] are appropriate, unless specifically indicated otherwise. [employer] drug information does not endorse drugs, diagnose patients or recommend therapy. [employer] drug information isan informational resource designed to [...] effective or appropriate for any given patient. [facility] does not assume any responsibility for any aspect of healthcare administered with the aid of information [facility] provides. The information contained herein is not intended to cover all possible uses, directions, precautions, warnings, drug interactions, allergic reactions, or adverse effects. If you have questions about the drugs you are taking, check with your doctor, nurse or pharmacist. Copyright 3809-0091 [employer]. Version: 19.. Revision Date: 01/16/2023. Education Materials [...] in vomit, stools (black or red color) 4238-4569 [employer] [address] [place] [address]. All rights reserved. This information is not [...] fainting Blood in your stool or urine 2912-0883 [employer] [address] [place], [place] [address]. All rights reserved. This information is not [...] will help ease pain. You may use alhl-ylc-maiaubf pain medicine such as acetaminophen or ibuprofen [...] suddenly or lasts more than an hour 0879-7487 [employer]. [address] [place] [address]. All rights reserved. This information is not intended as a substitute for professional medical care. Always follow yourhealthcare professional's instructions. Additional Information VACCINATE! IT SAVES LIVES! Members of the community who have not yet received the COVID-19 vaccine and would like to receive it can visit one of [facility] vaccine clinics. There are many vaccine clinic locations within the [facility]. For locations and available times, please visit www.[email or web address].[place].gov/. It is important to note that some COVID mobile vaccine clinics are held outdoors and may be canceled in rainy or stormy conditions. To learn more about pediatric vaccinations (ages 5-11), we invite you to visit the [facility] webpage. https://www.[facility].org/pages/6796-Ppksz-Sinqxaiowag-Xevlqnaily-Ozwbq-Qng stions.htmlTo learn more about the COVID-19 vaccine, we invite you to visit the CDC website for a list of frequently asked questions. https://www.cdc.gov/coronavirus/2019-ncov/vaccines/faq.html [facility] Patient Portal Access Instructions: Stay connected with your healthcare team and access your personal medical information anytime with the [employer] Patient Portal. If you would like a full copy of your medical records please contact the [facility] Medical Records Department Monday through Monday between 8a.m. and 4:30p.m. Please follow the directions below to access the portal: 1.Access the email account you provided upon registration to the [facility].2.Look for an invitation email from [facility].3.Open the email and access the invitation link: Accept Invitation to [facility]4.Fill in the required orr to create your account. Sign into www.[employer] with your username and password that you [...] you will allow to register on the [employer] Patient Portal for access to your information. You can also access the [employer] Patient Portal on the Pandora.TV. Simply click on "Health Records" under "[facility]" and then click on the [employer] logo. HOW TO SAFELY DISPOSE OF PRESCRIPTION [...] Call your local pharmacy or go to http://CreditEase.Helpful Alliance/3E9Oe7b to find one close to you.3.Make use of household items: Use cat litter or old coffee grounds to dispose medications if other options arenot available. Mix your drugs with these household products, seal them in an airtight container andthrow it into the garbage. Call [facility]: [phone] to be sure your drugs can be [...] aware that I should contact my doctor. Patient/Medical Sales Consultant Signature: Date/Time: Relationship to Patient: Witness Name/Signature: Date/Time: [facility]12-08-2023 Note ORIGINAL EXAMINATION: 2 XRAY VIEWS OF [...] Date: 05/05/2023 9:08:30 PM Ordering Provider: DEMI [facility]12-08-2023 Note ORIGINAL EXAMINATION: ONE XRAY VIEW OF [...] Date: 05/05/2023 9:17:04 PM Ordering Provider: DEMI [facility]11-06-2023 Note * Exam Date Time Procedure Performing Provider Status 04/03/23 9:43 AM Echocardiogram, Adult (AOH) Auth (Verified) [facility] 07-28-2023 Hospital Discharge instructions Patient Education 12/23/2022 [...] Document Reviewed: 05/16/2014 ExitCare Patient Information 2015 PST [employer]. This information is not intended to replace [...] before eating solid foods. General instructions Take jvvz-qgx-ybnnfhs and prescription medicines only as told by [...] 09/04/2016 Document Revised: 08/13/2018 Document Reviewed: 09/04/2016 [employer] Patient Education 2020 [employer]. Follow Up Care 12/07/2022 09:52:07 With:ZHOU ESPINOSA Address: [address] [facility] [address] [place] [phone] When: Unknown Comments:Follow-up as scheduled [facility] 07-28-2023 Note Discharge Instructions Thank you for allowing [facility] to assist you with your healthcare needs. The following is importantdischarge information regarding your hospital visit. Your Care Team GIRMA CORREA Your Diagnosis AF (atrial fibrillation) What to do next Scheduled Follow-Up Appointments Appointment Type When With Where Contact InformationPC OV 02/07/2023 02:30 PM EDT GIRMA CORREA [facility] Follow Up Appointments Follow Up with ZHOU ESPINOSA When Why: Follow-up as scheduled Where: [address] [facility] [address] [place] [phone] Allergies NKA Medications Please ask your primary doctor or pharmacist before taking any other medication not listed, including over the counter drugs, herbal medications, vitamins and or supplements as they may interact withyour home medications. What How Much When Instructions Last Dose New losartan (losartan 100 mg oral tablet) 1 tab(s) by mouth Once a day Refills: 6 Pickup at [id number] Changed metoprolol (Toprol-XL 50 mg oral tablet, extended release) 1 tab(s) by mouth Two (2) times a day Pickup at [id number] Unchanged allopurinol (allopurinol 100 mg oral tablet) [...] Duration: 14 Days Pharmacy Information [id number]: [address], [place] [id number] [phone] What How Much When Comments Stop Taking [...] Document Reviewed: 05/16/2014 ExitCare Patient Information 2015 PST [employer]ers. This information is not intended to replace [...] before eating solid foods. General instructions Take gfvv-gre-afkfdyh and prescription medicines only as told by [...] 09/04/2016 Document Revised: 08/13/2018 Document Reviewed: 09/04/2016 [employer] Patient Education 2020 [employer]. Additional Information VACCINATE! IT SAVES LIVES! Members of the community who have not yet received the COVID-19 vaccine and would like to receive it can visit one of [facility] vaccine clinics. There are many vaccine clinic locations within the [facility]. For locations and available times, please visit [email or web address]/. It is important to note that some COVID mobile vaccine clinics are held outdoors and may be canceled in rainy or stormy conditions. To learn more about pediatric vaccinations (ages 5-11), we invite you to visit the [facility] webpage. https://www.[facility].org/pages/4423-Hpzyy-Uzykqscdomm-Mrsfswujtz-Ftexd-Vjy stions.htmlTo learn more about the COVID-19 vaccine, we invite you to visit the CDC website for a list of frequently asked questions.https://www.cdc.gov/coronavirus/2019-ncov/vaccines/faq.html [employer] Patient Portal Access Instructions: Stay connected with your healthcare team and access your personal medical information anytime with the [employer] Patient Portal. Please follow the directions below to create your [employer] account: 1.Access the email account you provided upon registration to the hospital/physician office.2.Look for an invitation email from [facility].3.Open the email and access the invitation link: AcceptInvitation to [facility] [employer].4.Fill in the required orr to create your account. To access your account, visit [email or web address]. Click the blue button labeled "Access Patient [...] who you will allowto register on the [facility] [employer] Patient Portal for access to your information. You can also access the [facility] [employer] Patient Portal on the [facility] frida. Simply click on "Patient Portal" and then log into your account. If you would like to receive a full copy of your medical records, please contact the [facility] Medical Records Department by calling [phone], Monday through Monday between 8 a.m. and [...] Call your local pharmacy or go to http://bit.ly/4C8Jo1p to find one close to you.3.Make use of household items: Use cat litter or old coffee grounds to dispose medications if other options arenot available. Mix your drugs with these household products, seal them in an airtight container andthrow it into the garbage. Call [facility]: [phone] to be sure your drugs can be [...] aware that I should contact my doctor. Patient/Medical Sales Consultant Signature: Date/Time: Relationship to Patient: Witness Name/Signature: Date/Time: [facility]07-28-2023 Anesthesiology Consult note Patient: CARLOS ALBERTO KELLEY [...] BRAULIO WRIGHT on 12/23/2022 07:23 AM [facility]07-28-2023 Anesthesiology Consult note Patient: CARLOS ALBERTO KELLEY [...] Problem list: Medical Anxiety / SNOMED CT 00769821 / Confirmed Atopic dermatitis / SNOMED CT 64332592 / Confirmed BMI 45.0-49.9, adult / SNOMED CT 8146438633 / Confirmed Diabetes mellitus / SNOMED CT 476745838 / Confirmed Hypertension / SNOMED CT 6958812210 / Confirmed Insomnia / SNOMED CT 747405933 / Confirmed Morbid obesity / SNOMED CT 697995308 / Confirmed Chewing tobacco nicotine dependence / SNOMED CT 84281289 / Confirmed Obstructive sleep apnea / SNOMED CT 551058873 / Confirmed Screening for ischemic heart disease / SNOMED CT 435372011 / Confirmed Persistent atrial fibrillation / SNOMED CT 0508209156 / Confirmed Prediabetes / SNOMED CT 2765542627 / Confirmed, Active Problems (16) Anxiety Atopic [...] History: History is unknown. Procedure history: Elbow ([id number]). Comments: 07/11/2022 8:26 CRISTINO Sinha, SHAHEEN Hansen bursitis - right Social History [...] patch - 12/13/2022 14:44 - Naresh Mcgregor LPN Nutrition/Health 12/23/2022 Caffeine intake amount: pop 3 daily . Physical Examination Vital Signs 12/23/2022 6:34 EDT Temperature Temporal Artery 35.3 DegC Peripheral Pulse Rate 85 bpm Respiratory Rate 20 br/min Systolic Blood Pressure Non-Invasive 103 mmHg Diastolic Blood Pressure Non-Invasive 76 mmHg Vital Signs(last 24 hrs) Last Charted Resp Rate 20 br/min (DEC 23 06:34) UPK776 mmHg (DEC 23 06:34) DBP76 mmHg (DEC 23 06:34) Measurements from flowsheet : Measurements 12/23/2022 6:37 EDT Height 175.3 cm [place] Body Weight 70.74 kg 12/23/2022 6:34 EDT Height 175.3 cm Admission Weight 144 kg [place] Body Weight 70.74 kg Admission Body Mass [...] Surgeon SN - CAt - Role Performed Quality Assurance Monitor Body 1 SN - CAt - Role Performed MELTING FURNACE SKIMMER 12/23/2022 6:49 EDT Wrist Left 12/23/2022 20 [...] Person #1 We May Share YAW OSPINA [phone] Designated Person #1 Relationship Sibling Height 175.3 cm [place] Body Weight 70.74 kg Status N/A Sensory [...] evident Teaching Method Explanation Preferred Spoken Language Ghanaian Preferred Written Language Ghanaian Information Given by Patient Patient's Current Physicians Patient's Current Physicians Discharge To, Anticipated Home independently Prev Test Positive/Diagnosis w/COVID-19 No Current Quarantine/Isolated any Illness No Any Contact with Sick Animals/Birds No Traveled Anywhere in Last 30 Days No N/A Personal Devices, Patient Valuables None Admission Note-Nursing Procedure/Therapy Intake 12/23/2022 6:34 EDT Height 175.3 cm Admission Weight 144 kg [place] Body Weight 70.74 kg Admission Body Mass [...] Ordered (In Progress) . Assessment and Plan [place] Society of Anesthesiologists (ASA) physical status classification: Class III. Anesthetic Preoperative Plan Anesthetic technique: MAC. Informed consent: signed by patient. Digitally Signed by BRAULIO WRIGHT on 12/23/2022 07:21 AM [facility]06-01-2023 Hospital Discharge instructions Patient Education 10/27/2022 06:39:29 [...] Swelling, pain or redness in one leg 9123-9557 [employer]. [address] [place] [address]. All rights reserved. This information is not [...] very fast heart rate Loss of consciousness 7318-3976 [employer]. [address] [place] [address]. All rights reserved. This information is not intended as a substitute for professional medical care. Always follow yourhealthcare professional's instructions. Follow Up Care 10/27/2022 05:02:35 With:GIRMA CORREA Address: [address] [place] [phone] Business (1) When:2-4 days Comments:Follow close with your doctor, continue medications, return if any worsening or concerning symptoms. [facility] 06-01-2023 Note Discharge Instructions Thank you for allowing [facility] to assist you with your healthcare needs. [...] or concerning symptoms. Where: [address] [place] [phone] Business (1) Allergies NKA Medications Please ask [...] Swelling, pain or redness in one leg 1155-8180 [employer]. [address] [place] [address]. All rights reserved. This information is not [...] very fast heart rate Loss of consciousness 8170-6119 [employer] [address] [place], [place] [address]. All rights reserved. This information is not intended as a substitute for professional medical care. Always follow yourhealthcare professional's instructions. Additional Information VACCINATE! IT SAVES LIVES! Members of the community who have not yet received the COVID-19 vaccine and would like to receive it can visit one of [facility] vaccine clinics. There are many vaccine clinic locations within the [facility]. For locations and available times, please visit www.[email or web address].[place].gov/. It is important to note that some COVID mobile vaccine clinics are held outdoors and may be canceled in rainy or stormy conditions. To learn more about pediatric vaccinations (ages 5-11), we invite you to visit the [facility] webpage. https://www.[facility].org/pages/0986-Kxcin-Fshmohxvque-Hcjvtwxhxv-Rubbi-Hkm stions.htmlTo learn more about the COVID-19 vaccine, we invite you to visit the CDC website for a list of frequently asked questions. https://www.cdc.gov/coronavirus/2019-ncov/vaccines/faq.html [facility] Patient Portal Access Instructions: Stay connected with your healthcare team and access your personal medical information anytime with the [facility] Patient Portal. If you would like a full copy of your medical records please contact the [facility] Medical Records Department Monday through Monday between 8a.m. and 4:30p.m. Please follow the directions below to access the portal: 1.Access the email account you provided upon registration to the [facility].2.Look for an invitation email from [facility].3.Open the email and access the invitation link: Accept Invitation to [employer]4.Fill in the required orr to create your account. Sign into www.[employer] with your username and password that you [...] you will allow to register on the [employer] Patient Portal for access to your information. You can also access the [employer] Patient Portal on the Pandora.TV. Simply click on "Health Records" under "[facility] Link" and then click on the [employer] logo. HOW TO SAFELY DISPOSE OF PRESCRIPTION [...] Call your local pharmacy or go to http://CreditEase.Helpful Alliance/1I1Ak3t to find one close to you.3.Make use of household items: Use cat litter or old coffee grounds to dispose medications if other options arenot available. Mix your drugs with these household products, seal them in an airtight container andthrow it into the garbage. Call [facility]: [phone] to be sure your drugs can be [...] aware that I should contact my doctor. Patient/Medical Sales Consultant Signature: Date/Time: Relationship to Patient: Witness Name/Signature: Date/Time: [facility]06-01-2023 Note ORIGINAL EXAMINATION: ONE XRAY VIEW OF [...] Sign Date: 10/27/2022 6:14:45 AM Ordering Provider: [facility]06-01-2023 Note ORIGINAL EXAMINATION: ONE XRAY VIEW OF [...] Date: 10/27/2022 6:14:45 AM Ordering Provider: OLLIE [facility]05-30-2023 Hospital Discharge instructions Patient Education 10/25/2022 [...] your body to your neck and face. 9577-9641 [employer]. [address] [place] [address], [place] [address]. All rights reserved. This information is not [...] vision Extreme drowsiness, confusion, dizziness, or fainting 0496-6298 [employer]. [address] [place] [address]. All rights reserved. This information is not [...] Swelling, pain or redness in one leg 1025-9791 [employer]. [address] [place] [address]. All rights reserved. This information is not [...] veins, fluid leaks out into the tissues. [place] then causes that fluid to move to [...] away Feeling much more tired than usual 1029-6968 [employer]. [address] [place] [address]. All rights reserved. This information is not intended as a substitute for professional medical care. Always follow yourhealthcare professional's instructions. Follow Up Care 10/24/2022 23:09:33 With:Call Physician Referral Address:Unknown When:2-4 days Comments:Call for referral to establish a primary care doctor you can see on a regular basis. With:SADE STRAUSS Address: [address] [facility] [address] [facility] [place] [phone] Business (1) When:2-4 days Comments:Schedule an appointment to establish a autobody technician you can see on a regular basis.Double your doseof Lasix from 20 mg once a day to 20 mg twice a day.Continue all other routine medications including the ones you were recently prescribed from [place].Use potassium supplement and sleep aid (trazodone) as prescribed.Return to the ED if symptoms worsen. [facility] 05-30-2023 Note Discharge Instructions Thank you for allowing [facility] to assist you with your healthcare needs. [...] Why: Schedule an appointment to establish a autobody technician you can see on a regular basis. Double your dose of Lasix from 20 mg once a day to 20 mg twice a day. Continue all other routine medications including the ones you were recently prescribed from [place]. Use potassium supplement and sleep aid (trazodone) as prescribed. Return to the ED if symptoms worsen. Where: [address] [facility] [place] [phone] Business (1) Allergies NKA Medications Please ask [...] may report side effects to FDA at 3-670-CYR-7790. What other drugs will affect potassium chloride? Tell your doctor about all your other medicines, especially: medicine to prevent organ transplant rejection; a diuretic or 'water pill'; or heart or blood pressure medication. This list is not complete. Other drugs may affect potassium chloride, including prescription and zwdn-zow-qdzzhkm medicines, vitamins, and herbal products. Not all [...] to ensure that the information provided by [employer]. ('[employer]') is accurate, up-to-date, and complete, but no guarantee is made to that effect. Drug information contained herein may be time sensitive. [employer] information has been compiled for use by healthcare practitioners and consumers in the [place] and therefore [employer] does not warrant that uses outside of the [place] are appropriate, unless specifically indicated otherwise. [employer] drug information does not endorse drugs, diagnose patients or recommend therapy. [employer] drug information isan informational resource designed to [...] effective or appropriate for any given patient. [employer] does not assume any responsibility for any aspect of healthcare administered with the aid of information [employer] provides. The information contained herein is not intended to cover all possible uses, directions, precautions, warnings, drug interactions, allergic reactions, or adverse effects. If you have questions about the drugs you are taking, check with your doctor, nurse or pharmacist. Copyright 0603-2883 [employer]. Version: 14.01. Revision Date: 10/24/2019. trazodone (TRAZ [...] may report side effects to FDA at [phone]-VAR-8689. What other drugs will affect trazodone? Using trazodone with other drugs that make you drowsy can worsen this effect. Ask your doctor before using opioid medication, a sleeping pill, a muscle relaxer, or medicine for anxiety or seizures. Tell your doctor about all your current medicines. Many drugs can affect trazodone, especially: any other antidepressants; phenytoin; [place]'s wort; tramadol; a diuretic or 'water pill'; medicine to treat anxiety, mood disorders, or mental illness such as schizophrenia; a blood thinner--warfarin, Coumadin, Jantoven; or migraine headache medicine--sumatriptan, Imitrex, Maxalt, Treximet, and others. This list is not complete and many other drugs may affect trazodone. This includes prescription xfelxhf-lip-qzebvtx medicines, vitamins, and herbal products. Not all [...] to ensure that the information provided by [employer]. ('[employer]') is accurate, up-to-date, and complete, but no guarantee is made to that effect. Drug information contained herein may be time sensitive. [employer] information has been compiled for use by healthcare practitioners and consumers in the [place] and therefore [employer] does not warrant that uses outside of the [place] are appropriate, unless specifically indicated otherwise. [employer] drug information does not endorse drugs, diagnose patients or recommend therapy. [employer] drug information isan informational resource designed to [...] effective or appropriate for any given patient. [employer] does not assume any responsibility for any aspect of healthcare administered with the aid of information [employer] provides. The information contained herein is not intended to cover all possible uses, directions, precautions, warnings, drug interactions, allergic reactions, or adverse effects. If you have questions about the drugs you are taking, check with your doctor, nurse or pharmacist. Copyright 7390-0551 [employer]. Version: 10.04. Revision Date: 11/09/2020. Education Materials [...] your body to your neck and face. 6381-6040 [employer]. [address] [place] [address], [place] [address]. All rights reserved. This information is not [...] vision Extreme drowsiness, confusion, dizziness, or fainting 4042-3237 [employer] [address] [place] [address]. All rights reserved. This information is not [...] Swelling, pain or redness in one leg 9164-9172 [employer]. [address] [place] [address]. All rights reserved. This information is not [...] veins, fluid leaks out into the tissues. [place] then causes that fluid to move to [...] away Feeling much more tired than usual 8604-9178 [employer]. [address] [place] [address], [place] [address]. All rights reserved. This information is not intended as a substitute for professional medical care. Always follow yourhealthcare professional's instructions. Additional Information VACCINATE! IT SAVES LIVES! Members of the community who have not yet received the COVID-19 vaccine and would like to receive it can visit one of [facility] vaccine clinics. There are many vaccine clinic locations within the [facility]. For locations and available times, please visit www.gettheshot.coronavirus.[place].gov/. It is important to note that some COVID mobile vaccine clinics are held outdoors and may be canceled in rainy or stormy conditions. To learn more about pediatric vaccinations (ages 5-11), we invite you to visit the [facility] webpage. https://www.Gizmoxs.org/pages/5048-Xxupb-Detgqmyvlxu-Uwnmillhvc-Qucsf-Aol stions.htmlTo learn more about the COVID-19 vaccine, we invite you to visit the CDC website for a list of frequently asked questions. https://www.cdc.gov/coronavirus/2019-ncov/vaccines/faq.html [facility] Patient Portal Access Instructions: Stay connected with your healthcare team and access your personal medical information anytime with the [facility] Patient Portal. If you would like a full copy of your medical records please contact the [facility] Medical Records Department Monday through Monday between 8a.m. and 4:30p.m. Please follow the directions below to access the portal: 1.Access the email account you provided upon registration to the hospital.2.Look for an invitation email from [facility].3.Open the email and access the invitation link: Accept Invitation to [facility]4.Fill in the required orr to create your account. Sign into www.[employer] with your username and password that you [...] you will allow to register on the [employer] Patient Portal for access to your information. You can also access the [employer] Patient Portal on the [employer]. Simply click on "Health Records" under "HealthData" and then click on the [employer] logo. HOW TO SAFELY DISPOSE OF PRESCRIPTION [...] Call your local pharmacy or go to http://CreditEase.Helpful Alliance/8A6Jh7v to find one close to you.3.Make use of household items: Use cat litter or old coffee grounds to dispose medications if other options arenot available. Mix your drugs with these household products, seal them in an airtight container andthrow it into the garbage. Call [facility]: [phone] to be sure your drugs can be [...] aware that I should contact my doctor. Patient/Medical Sales Consultant Signature: Date/Time: Relationship to Patient: Witness Name/Signature: Date/Time: [facility]05-30-2023 Note ORIGINAL EXAMINATION: CTA OF THE CHEST [...] aortic dissection. Lungs/pleura: Small bilateral pleural effusions calliope player dependently. There is more fluid on the [...] Sign Date: 10/25/2022 1:09:48 AM Ordering Provider: [facility]05-30-2023 Note ORIGINAL EXAMINATION: CTA OF [...] aortic dissection. Lungs/pleura: Small bilateral pleural effusions calliope player dependently. There is more fluid on the [...] Sign Date: 10/25/2022 1:09:48 AM Ordering Provider: [facility]05-29-2023 Note ORIGINAL EXAMINATION: ONE XRAY [...] Sign Date: 10/24/2022 11:56:09 PM Ordering Provider: [facility]05-29-2023 Note ORIGINAL EXAMINATION: ONE XRAY [...] Sign Date: 10/24/2022 11:56:09 PM Ordering Provider: [facility]05-28-[address] Clemens [facility] October 23, 2022 10:40am Note Date/Time October 23, 2022 6:48a m [facility] Medical Records Department [address] [place] [address] Emergency Department Summary 10/23/22 MR#: [id number] Acct: [id number] Name: CARLOS ALBERTO KELLEY Lucian Brito. Rep #:[id number] : 1970 52 From: Jameel Brown DO [...] gets short of breath. Patient states his autobody technician is a Dr. Barr out of [facility]. [facility] Medical History (Updated 10/23/22 @ 06:09 by Elma M Young) Diabetes Glaucoma Gout Hypertension Home Medications allopurinol [...] IV and his heart rate is now [id number]. CBC shows no leukocytosis. Hemoglobin macular stable. [...] % (Auto) 67.9 Lymph % (Auto) 19.0 Parmer % (Auto) 9.6 Eos % (Auto) 2.4 [...] your Primary Care Provider. Call [facility] ([phone]) or report to the closest Emergency Room. Call 911 if necessary. 10/23/22 07 <Electronically signed by Jameel Brown DO> Cosigner Signature (if applicable): CC: ZACARIAS COHN ~ Signed ADDENDUM by Dr. Jose A Clemens MD on 10/23/22 at 0759 Patient care was transferred to wi at 0710. Patient presented because of palpitations discomfort right side of his chest with shortness of breath. Patient does have history of congestive heart failure and atrial fibrillation. He has relocated from [place]. He does not have a local autobody technician. Patient has not taken his Xarelto for [...] (if applicable): cc: ZACARIAS COHN ~* Signed [facility] Work Phone: [phone] 569-572202-17-2023 Hospital Discharge instructions Patient Education 07/15/2022 21:17:24 [...] temperature. Use toothpaste made for sensitive teeth. [place] gently up and down instead of sideways. Brushing sideways can wear away root surfaces if they are exposed. If your tooth is chipped or cracked, or if there is a large open cavity, put oil of cloves directlyon the tooth to relieve pain. You can buy oil of cloves at drugstores. Some pharmacies carry an erih-seb-ftpcdwg "toothache kit." This contains a paste that you can put on the exposed tooth to make it less sensitive. Put a cold pack on your jaw over the sore area to help reduce pain. You may use vfcc-llq-gdokkyi medicine to ease pain, unless your doctor [...] healthcare provider Pus drains from the tooth 3558-2357 [employer]. [address] [place] [address], [place] [address]. All rights reserved. This information is not intended as a substitute for professional medical care. Always follow yourhealthcare professional's instructions. Follow Up Care 07/15/2022 20:40:26 With:Dental Referral List Address: When:2-4 days [facility] 02-17-2023 Note Discharge Instructions Thank you for allowing [facility] to assist you with your healthcare needs. [...] When Why Instructions Last Dose New acetaminophen-hydrocodone (Yoder 325- 5 mg oral tablet) 1 tab(s) [...] temperature. Use toothpaste made for sensitive teeth. [place] gently up and down instead of sideways. Brushing sideways can wear away root surfaces if they are exposed. If your tooth is chipped or cracked, or if there is a large open cavity, put oil of cloves directlyon the tooth to relieve pain. You can buy oil of cloves at drugstores. Some pharmacies carry an xkxu-iuu-gvjiixz "toothache kit." This contains a paste that you can put on the exposed tooth to make it less sensitive. Put a cold pack on your jaw over the sore area to help reduce pain. You may use fzdh-yhk-nvssjvd medicine to ease pain, unless your doctor [...] healthcare provider Pus drains from the tooth 8764-8237 [employer]. [address] [place] [address], [place] [address]. All rights reserved. This information is not intended as a substitute for professional medical care. Always follow yourhealthcare professional's instructions. Additional Information VACCINATE! IT SAVES LIVES! Members of the community who have not yet received the COVID-19 vaccine and would like to receive it can visit one of [facility] vaccine clinics. There are many vaccine clinic locations within the [facility]. For locations and available times, please visit www.gettheshot.coronavirus.[place].gov/. It is important to note that some COVID mobile vaccine clinics are held outdoors and may be canceled in rainy or stormy conditions. To learn more about pediatric vaccinations (ages 5-11), we invite you to visit the [employer] webpage. https://www.Gizmoxs.org/pages/7473-Rwozw-Upimchivlmd-Dlqufszczr-Awqum-Eel stions.htmlTo learn more about the COVID-19 vaccine, we invite you to visit the CDC website for a list of frequently asked questions. https://www.cdc.gov/coronavirus/2019-ncov/vaccines/faq.html [facility] [employer] Patient Portal Access Instructions: Stay connected with your healthcare team and access your personal medical information anytime with the [facility] Patient Portal. If you would like a full copy of your medical records please contact the [facility] Medical Records Department Monday through Monday between 8a.m. and 4:30p.m. Please follow the directions below to access the portal: 1.Access the email account you provided upon registration to the [facility].2.Look for an invitation email from [facility].3.Open the email and access the invitation link: Accept Invitation to [facility]4.Fill in the required orr to create your account. Sign into www.[employer] with your username and password that you [...] you will allow to register on the [facility] Patient Portal for access to your information. You can also access the [facility] Patient Portal on the [employer] frida. Simply click on "Health Records" under "HealthData" and then click on the [employer] logo. HOW TO SAFELY DISPOSE OF PRESCRIPTION [...] Call your local pharmacy or go to http://CreditEase.Helpful Alliance/1L3Vp9x to find one close to you.3.Make use of household items: Use cat litter or old coffee grounds to dispose medications if other options arenot available. Mix your drugs with these household products, seal them in an airtight container andthrow it into the garbage. Call [facility]: [phone] to be sure your drugs can be [...] been reviewed and explained to me and I,WARRENCARLOS ALBERTO understand my current condition and have read and understand these discharge instructions. I have received awritten copy of the plan/instructions. If I have questions, I am aware that I should contact my doctor. Patient/Medical Sales Consultant Signature: Date/Time: Relationship to Patient: Witness Name/Signature: Date/Time: [facility]02-13-2023 Hospital Discharge instructions Patient Education 07/11/2022 09:00:28 [...] alternate ice and heat. You may use ynqb-bbn-rcqiawj pain medicine to control pain, unless another [...] hand becomes cold, blue, numb, or tingly 4003-4622 [employer]. [address] [place] [address]. All rights reserved. This information is not intended as a substitute for professional medical care. Always follow yourhealthcare professional's instructions. Follow Up Care 07/11/2022 08:20:34 With:DO MELISSA COHN DO Address: [address] [place] [address] [employer] [address] [place] [address] When:3-7 days With:Go to emergency room if symptoms worsen Address:Unknown When:2-4 days [facility] 02-13-2023 Note Discharge Instructions Thank you for allowing [facility] to assist you with your healthcare needs. [...] COHN DO When Within 3-7 days Where: [address] [place] [address] [employer] [address] [place] [address] Follow Up with Go to [...] alternate ice and heat. You may use dgvz-spg-elgnuxs pain medicine to control pain, unless another [...] hand becomes cold, blue, numb, or tingly 6291-0140 [employer]. [address] [place] [address], [place] [address]. All rights reserved. This information is not intended as a substitute for professional medical care. Always follow yourhealthcare professional's instructions. Additional Information VACCINATE! IT SAVES LIVES! Members of the community who have not yet received the COVID-19 vaccine and would like to receive it can visit one of [facility] vaccine clinics. There are many vaccine clinic locations within the [facility]. For locations and available times, please visit www.gettheshot.coronavirus.[place].org. It is important to note that some COVID mobile vaccine clinics are held outdoors and may be canceled in rainy orstormy conditions. To learn more about pediatric vaccinations (ages 5-11), we invite you to visit the [facility] webpage. https://www.[facility].org/pages/8552-Ooqhk-Aptwydqxbsl-Kibznfkzlr-Uoflo-Cja stions.htmlTo learn more about the COVID-19 vaccine, we invite you to visit the [facility] website for a list of frequently asked questions. https://avoca.iRidge/assets/Ibxdevoa-rlm-Vgimavax/olijw-Sllfojj-Qbzrqztbbp _Asked-Questions.pdf [facility] Patient Portal Access Instructions: Stay connected with your healthcare team and access your personal medical information anytime with the [facility] Patient Portal. If you would like a full copy of your medical records please contact the [facility] Medical Records Department Monday through Monday between 8a.m. and 4:30p.m. Please follow the directions below to access the portal: 1.Access the email account you provided upon registration to the hospital.2.Look for an invitation email from [facility].3.Open the email and access the invitation link: Accept Invitation to [facility] [employer]4.Fill in the required orr to create your [...] you will allow to register on the [facility] [employer] Patient Portal for access to your information. You can also access the [facility] [employer] Patient Portal on the Pandora.TV. Simply click on "Health Records" under "HealthData" [...] Call your local pharmacy or go to http://CreditEase.Helpful Alliance/0D2Dz4t to find one close to you.3.Make use of household items: Use cat litter or old coffee grounds to dispose medications if other options arenot available. Mix your drugs with these household products, seal them in an airtight container andthrow it into the garbage. Call [facility]: [phone] to be sure your drugs can be [...] aware that I should contact my doctor. Patient/Medical Sales Consultant Signature: Date/Time: Relationship to Patient: Witness Name/Signature: Date/Time: [facility]02-13-2023 Note ORIGINAL EXAMINATION: THREE XRAY VIEWS OF [...] Sign Date: 07/11/2022 8:51:46 AM Ordering Provider: [facility]02-13-2023 Note ORIGINAL EXAMINATION: THREE XRAY VIEWS [...] Sign Date: 07/11/2022 8:51:46 AM Ordering Provider: [facility]09-12-2022 Note [facility] [place] [address] PERSONAL HISTORY AND PHYSICAL : [id number] Signed Name: CARLOS ALBERTO KELLEY JR MRUN: [id number] : 1970 Loc: ENDO Age / Sex: 51/ M Adm Status: PRE [facility] Adm Date:02/15/22 Room/Bed: A 51-year-old patient of [facility] Ramoston in [place], who comes to discuss endoscopy. He has [...] Dictated Date/Time: 02/07/22 1659 Transcribed Date/Time: 02/07/22 1716[facility] Anesthesiology Consult note* CIRILO MCDONOUGH DO: PERFORM, SIGN, VERIFY Event Display: Anesthesiology Consultation Authored Date: Patient: CARLOS ALBERTO KELLEY Age: 53 years [...] device, # 1 EA, 0 Refill(s), Pharmacy: [facility], 177.8, cm, 11/28/23 13:54:00 EDT, Height, 151.4, kg, 11/28/23 13:54:00 EDT, Dosin... Blood Glucose Test Strips: See Instructions, 1 bottle of 100 Test once daily, # 1 EA, 11 Refill(s), Pharmacy: [facility], 177.8, cm, 11/28/23 13:54:00 EDT, Height, 151.4, kg, 11/28/23 13:54:00 EDT, Dosing Weight FLUoxetine 20 mg oral capsule: Dose : 20 mg = 1 cap(s), Oral, qDay, # 30 cap(s), 3 Refill(s), Pharmacy: [facility], 177.8, cm, 11/28/23 13:54:00 EDT, Height, kg, 11/28/23 13:54:00 EDT,Dosing Weight Lancets: See Instructions, qs 1 month supply Test once daily, # 1 EA, 11 Refill(s), Pharmacy: [facility], 177.8, cm, 11/28/23 13:54:00 EDT, Height, 151.4, kg, 11/28/23 13:54:00 EDT, Dosing Weight Lasix 40 mg oral tablet: See Instructions, 1 tab in AM and 0.5 tab in PM, # 135 tab(s), 3 Refill(s), Pharmacy: [facility], 177.8, cm, 11/28/23 13:54:00 EDT, Height, kg, 11/28/23 13:54:00 EDT, Dosing Weight Symbicort 80 mcg-4.5 mcg/inh Inhaler: Dose = 2 puff(s), Inhalation, BID, # 10.2 gram(s), 3 Refill(s), Pharmacy: [facility], 177.8, cm, 11/28/23 13:54:00 EDT, Height, kg, 11/28/23 13:54:00 EDT, Dosing Weight Tikosyn 250 mcg oral capsule: Dose : 250 mcg = 1 cap(s), Oral, BID, # 180 cap(s), 3 Refill(s), Pharmacy: [facility]/pharmacy #4605, 177.8, cm, 11/28/23 13:54:00 EDT, Height, kg, 11/28/23 13:54:00 EDT, Dosing Weight Toprol-XL 100 mg oral tablet, extended release: Dose : 100 mg = 1 tab(s), Oral, BID, do not crush or chew, # 180 tab(s), 3 Refill(s), Pharmacy: [facility], Shortness of breath, 177.8, cm, 11/28/23 13:54:00 EDT, Height, kg, 11/28/23 13:54:00 EDT, Dosing Weight Trulicity Pen 1.5 mg/0.5 mL subcutaneous solution: Dose : 1.5 mg =, Subcutaneous, qWeek, sent in absence of PCP, # 4 EA, 3 Refill(s), Pharmacy: [facility], 177.8, cm, 11/28/23 13:54:00EDT, Height, kg, 11/28/23 13:54:00 EDT, Dosing Weight Vistaril 25 mg oral capsule: Dose : 25 mg = 1 cap(s), Oral, QID, PRN as needed for anxiety, X 30 day(s), # 120 cap(s), 5 Refill(s), 06/09/24 16:10:00 EST, Pharmacy: [facility], 177.8, cm, 11/28/23 13:54:00 EDT, Height, kg, 11/28/23 13:54:00 EDT, Dosing Weight Xarelto 20 mg oral tablet: Dose : 20 mg = 1 tab(s), Oral, qHS, # 90 tab(s), 3 Refill(s), Pharmacy: [facility], 177.8, cm, 11/28/23 13:54:00 EDT, Height, 151.4, kg, 11/28/23 13:54:00 EDT, Dosing Weight allopurinol 100 mg oral tablet: Dose : 100 mg = 1 tab(s), Oral, qDay, # 90 tab(s), 3 Refill(s), Pharmacy: [facility], 177.8, cm, 11/28/23 13:54:00 EDT, Height, kg, 11/28/23 13:54:00 EDT, Dosing Weight cetirizine 10 mg oral tablet: Dose : 10 mg = 1 tab(s), Oral, Daily, # 90 tab(s), 3 Refill(s), Pharmacy: [facility], 177.8, cm, 11/28/23 13:54:00 EDT, Height, kg, 11/28/23 13:54:00 EDT,Dosing Weight nystatin 100,000 units/g topical cream: Apply 1 frida, Topical, BID, X 10 day(s), # 30 gram(s), 1 Refill(s), Pharmacy: [facility]/pharmacy #4605, Cream, 177, cm, 01/12/24 9:42:00 EDT, Height, 148.6, kg, 01/12/24 9:42:00 EDT, Dosing Weight omeprazole 40 mg oral delayed release capsule: Dose : 40 mg = 1 cap(s), Oral, BID, before a meal., # 180 cap(s), 3 Refill(s), Pharmacy: [facility], 177.8, cm, 11/28/23 13:54:00 EDT, Height, kg, 11/28/23 13:54:00 EDT, Dosing Weight rosuvastatin 20 mg oral tablet: Dose : 20 mg = 1 tab(s), Oral, Daily, # 100 tab(s), 3 Refill(s), Pharmacy: [facility], 177.8, cm, 11/28/23 13:54:00 EDT, Height, kg, 11/28/23 13:54:00 EDT, Dosing Weight sacubitril-valsartan 49 mg-51 mg oral tablet: Dose = 1 tab(s), Oral, BID, # 180 tab(s), 3 Refill(s), Pharmacy: [facility], 177.8, cm, 11/28/23 13:54:00 EDT, [...] spasm, # 90 tab(s), 2 Refill(s), Pharmacy: [facility], 177.8, cm, 11/28/23 13:54:00 EDT, Height, kg, 11/28/23 13:54:00 EDT, Dosing Weight traZODone 100 mg oral tablet: Dose : 100 mg = 1 tab(s), Oral, qHS, # 90 tab(s), 3 Refill(s), Pharmacy: [facility], 177.8, cm, 11/28/23 13:54:00 EDT, [...] list: Medical Asthma exacerbation / SNOMED CT 5364280856 / Confirmed Anxiety / SNOMED CT 72142613 / Confirmed Atopic dermatitis / SNOMED CT 69243600 / Confirmed BMI 45.0-49.9, adult / SNOMED CT 0001895848 / Confirmed Cardiomyopathy / SNOMED CT 838052581 / Confirmed Diabetes mellitus / SNOMED CT 410706303 / Confirmed Generalized anxiety disorder / SNOMED CT 60891843 / Confirmed Hyperlipidemia / SNOMED CT 41899453 / Confirmed Hypertension / SNOMED CT 9935716629 / Confirmed Insomnia / SNOMED CT 667534855 / Confirmed Moderate asthma / SNOMED CT 4146960324 / Confirmed Morbid obesity / SNOMED CT 483220352 / Confirmed Chewing tobacco nicotine dependence / SNOMED CT 60162281 / Confirmed Obstructive sleep apnea / SNOMED CT 377392643 / Confirmed Right knee pain / SNOMED CT 7654254422 / Confirmed Paroxysmal atrial fibrillation / SNOMED CT 323964404 / Confirmed Screening for ischemic heart disease / SNOMED CT 647533478 / Confirmed Screening for colon cancer / SNOMED CT 245462246 / Confirmed Prediabetes / SNOMED CT 5516192192 / Confirmed Right flank pain / SNOMED CT 459485020 / Confirmed Type 2 diabetes mellitus with hemoglobin A1c goal of less than 7.0% / SNOMED CT 361647129 / Confirmed Wheezing / SNOMED CT 45299842 / Confirmed, Active Problems (26) Anxiety Asthma [...] Mother Grandparent Stroke Father Procedure history: Cardioversion ([id number]) on 12/23/2022 at 52 Years. Echocardiogram ([id number]) on 11/11/2022 at 52 Years. Comments: 03/20/2023 17:58 Ella Flood MA ([facility] [facility] 1. Left ventricle: The cavity size is [...] right atrial pressure is 15 mm Hg [facility] ([phone]). Comments: 07/11/2022 8:26 CRISTINO Sinha, SHAHEEN Hansen [...] On and Limits Checked Nail Bed Color Napanoch Capillary Refill < 2 seconds Heart Sounds [...] Elimination Voiding, no difficulties All Extremity Description Napanoch Skin Temperature Warm Temperature All Extremities Warm Skin Description Napanoch, Dry Skin Integrity Intact Skin Turgor Non-Elastic Mucous Membrane Color Napanoch Mucous Membrane Description Moist Neurological Language Able to speak clearly Neurological Symptoms Patient denies Gait Unable to assess Extremity Movement Equal Swallowing Difficulty None Characteristics of Communication Appropriate Characteristics of Speech Clear Facial Symmetry Symmetric Level of Consciousness Alert Aspiration Risk None Eye Opening Response Shelby Spontaneously Best Motor Response Luis Felipe Obeys simple commands Best Verbal Response Shelby Oriented Luis Felipe Coma Score 15 CLARA [...] On and Limits Checked Nail Bed Color Napanoch Capillary Refill < 2 seconds Heart Sounds ICU S1S2 Heart Rhythm Irregular Cardiac Rhythm Sinus rhythm Monitoring Lead II, V5/MCL5 AL Interval 0.16 second(s) QRS Duration 0.08 second(s) [...] Elimination Voiding, no difficulties All Extremity Description Napanoch Skin Temperature Warm Temperature All Extremities Warm Skin Description Napanoch, Dry Skin Integrity Intact Skin Turgor Non-Elastic Mucous Membrane Color Napanoch Mucous Membrane Description Moist Neurological Language Able to speak clearly Neurological Symptoms Patient denies Gait Unable to assess Extremity Movement Equal Swallowing Difficulty None Characteristics of Communication Appropriate Characteristics of Speech Clear Facial Symmetry Symmetric Level of Consciousness Alert Aspiration Risk None Eye Opening Response Shelby Spontaneously Best Motor Response Luis Felipe Obeys simple commands Best Verbal Response Shelby Oriented Luis Felipe Coma Score 15 CLARA [...] date/time 01/31/2024 22:20 Provider Notified [facility] Notification Method Pager Information Communicated Medication [...] On and Limits Checked Nail Bed Color Napanoch Capillary Refill < 2 seconds Heart Sounds [...] Movement Makes facial grimaces All Extremity Description Napanoch Skin Temperature Warm Temperature All Extremities Warm Skin Description Napanoch, Dry Skin Integrity Intact Skin Turgor Non-Elastic Mucous Membrane Color Napanoch Mucous Membrane Description Moist Sensory Perception [place] [...] Alert Aspiration Risk None Eye Opening Response Shelby Spontaneously Best Motor Response Luis Felipe Obeys [...] History of Fall in Last 3 Months [place] No Presence of Secondary Diagnosis [place] Yes [...] On and Limits Checked Nail Bed Color Napanoch Capillary Refill < 2 seconds Heart Sounds [...] intact Skin Turgor Non-Elastic Mucous Membrane Color Napanoch Mucous Membrane Description Moist Neurological Language Able to speak clearly Neurological Symptoms Patient denies Extremity Movement Equal Swallowing Difficulty None Characteristics of Communication Appropriate Characteristics of Speech Clear Facial Symmetry Symmetric Level of Consciousness Alert Aspiration Risk None Eye Opening Response Shelby Spontaneously Best Motor Response Shelby Obeys simple commands Best Verbal Response Shelby Oriented Luis Felipe Coma Score 15 CLARA [...] of Bed Elevated 30 01/31/2024 15:38 EDT [facility] Current Living Situation I have a steady place to live [facility] Current Issues Living Environment None [facility] Worried Food Running Out P12M Never true [facility] Food Gone, No Money To Buy P12M Never true [facility] No Transport Med/Appt/Work P12M No [facility] Utilities Threaten Shut Off P12M No [facility] Anyone Physically Hurt You Never (1) [facility] Anyone Insult Or Talk Down To You Never (1) [facility] Anyone Threaten You With Harm Never (1) [facility] Anyone Scream Or Curse At You Never (1) [facility] Safety Total Score 4 Living Situation Lives with family Discharge To, Anticipated Home independently Anticipated Discharge Date 02/02/2024 Transition Planning Note Transition Planning Initial Assessment 01/31/2024 15:36 EDT Primary Care Phone Message Transition of Care sent from [facility] 01/31/2024 14:59 EDT heparin 9,000 unit(s) unit(s) Dextrose 5% Premix Diluent 90 mL mL 01/31/2024 14:43 EDT [place] Body Weight 72.7 kg Home Diet Regular Weight Chg, Unintentional Nutrition Hx Weight stable per avoca history Appetite Good Nutrition Plan of Care Dietitian follow up/monitor, Encourage PO feedings, Participate in team conference Nutrition Follow-Up Needed Yes Days until [facility] Follow Up Seven days Adult Nutrition Initial Assessment/Plan Adult Nutrition Assessment/Plan 01/31/2024 14:22 EDT Transition of Care Note Transition of Care sent from [facility] 01/31/2024 14:00 EDT Hand Right 01/30/2024 20 [...] On and Limits Checked Nail Bed Color Napanoch Capillary Refill < 2 seconds Heart Rhythm [...] Description Normal for ethnicity Mucous Membrane Color Napanoch Mucous Membrane Description Moist Hand Right 01/30/2024 [...] On and Limits Checked Nail Bed Color Napanoch Capillary Refill < 2 seconds Heart Rhythm [...] intact Skin Turgor Non-Elastic Mucous Membrane Color Napanoch Mucous Membrane Description Moist Continuous IV Infusions [...] Response Luis Felipe Spontaneously Best Motor Response Shelby Obeys simple commands Best Verbal Response Shelby Oriented Shelby Coma Score 15 CLARA Yes Left Pupil [...] On and Limits Checked Nail Bed Color Napanoch Capillary Refill < 2 seconds Heart Rhythm [...] Description Normal for ethnicity Mucous Membrane Color Napanoch Mucous Membrane Description Moist Continuous IV Infusions [...] On and Limits Checked Nail Bed Color Napanoch Capillary Refill < 2 seconds Heart Rhythm [...] intact Skin Turgor Non-Elastic Mucous Membrane Color Napanoch Mucous Membrane Description Moist Continuous IV Infusions [...] Felipe Obeys simple commands Best Verbal Response Shelby Oriented Luis Felipe Coma Score 15 CLARA [...] On and Limits Checked Nail Bed Color Napanoch Capillary Refill < 2 seconds Heart Rhythm [...] intact Skin Turgor Non-Elastic Mucous Membrane Color Napanoch Mucous Membrane Description Moist Continuous IV Infusions [...] On and Limits Checked Nail Bed Color Napanoch Capillary Refill < 2 seconds Heart Rhythm [...] intact Skin Turgor Non-Elastic Mucous Membrane Color Napanoch Mucous Membrane Description Moist Hand Right 01/30/2024 [...] Alert Aspiration Risk None Eye Opening Response Shelby Spontaneously Best Motor Response Luis Felipe Obeys simple commands Best Verbal Response Shelby Oriented Luis Felipe Coma Score 15 CLARA [...] EDT Designated Person #1 We May Share [facility] MARILYN OSPINA [phone] Designated Person #1 Relationship Sibling Designated Person #2 We May Share [facility] Designated Person #2 We May Share [facility] Designated Person #2 Relationship Significant other Privacy Restrictions Requested None Height 175 cm Height in inches 68.9 inch(es) Admission Weight 149.1 kg Weight Lbs 328 lb [place] Body Weight 70.46 kg BSA Admission 2.55 [...] evident Teaching Method Explanation Preferred Spoken Language Ghanaian Preferred Written Language Ghanaian Teaching Evaluation No further teaching needed Safety [...] On and Limits Checked Nail Bed Color Napanoch Capillary Refill < 2 seconds Heart Sounds [...] intact Skin Turgor Non-Elastic Mucous Membrane Color Napanoch Mucous Membrane Description Moist Sensory Perception [place] [...] Felipe Obeys simple commands Best Verbal Response Shelby Oriented Shelby Coma Score 15 CLARA Yes Left Pupil [...] explained to patient, Risks and benefits explained [facility] [employer] representative Transferring Physician MD SAMY JONES MD Receiving Facility Accepting Transfer [place] Rep. of Receiving Facility Accepting Pt Dr. hernandez Date/Time Transfer Accepted 01/30/2024 23:[address] Hernandez Date/Time Physician Accepted Patient 01/30/2024 23:10 Nurse Receiving Report Nora RN Nurse Receiving Report Nora Date/Time Nurse Received Report 01/31/2024 1:43 Date/Time Nurse Received Report 01/31/2024 1:43 Mode of Transfer Ground ambulance Required Personnel for Transfer [facility] Discharged to Another [...] 250 mL mL . Assessment and Plan [employer] (ASA) physical status classification: [...] CIRILO MCDONOUGH DO on 02/01/2024 06:26 AM [facility] Discharge summary Author Farzad Camilo [facility] Note Date/Time December 21, 2024 1:[address] [facility] Medical Records Department [address] [place] [address] Transfer to [facility] MR#: [id number] Acct: [id number] Name: CARLOS ALBERTO KELLEY Jr. Rep #:[id number] : 1970 54 From: Farzad mejia MD PCP: Dr. Jhonatan Garcia, DO Status:ADM BRENNA Certification of patient admission REQUIRED AT TIME OF ADMISSION. I CERTIFY THAT POST-HOSPITAL ECF SERVICES ARE REQUIRED TO BE GIVEN ON AN IN-PATIENT BASIS BECAUSE OF THE ABOVE NAMED PATIENT'S NEED FOR RESIDENTIAL CARE ON A CONTINUING BASIS FOR THE CONDITION(S) FOR WHICH HE/SHE WAS RECEIVING IN-PATIENT HOSPITAL SERVICES PRIOR TO HIS/HER TRANSFER TO THE ECF. 12/21/24 0845<Electronically signed by Farzad Camilo MD> [...] tissue disorders Allergies/Procedures Done in Hospital Allergies Crevbpy-OEC-XlQ Reductase Inhibitor Allergy (Mild, Verified 12/20/24 13:07) [...] in before D/C Order can be placed): Alf Facility 12/21/24 0845 <Electronically signed by Farzad Camilo MD> Cosigner Signature (if applicable): CC: Dr. Yaz Dee MD; Dr. Austin Estrada MD; Dr. Jhonatan Garcia DO ~ [facility] Work Phone: Discharge summary Author Farzad Camilo [facility] Note Date/Time December 21, 2024 11:3 8am [facility] Medical Records Department [address] [place] [address] [place] [address] Discharge Summary 12/21/24 1134 MR#: [id number] Acct: [id number] Name: CARLOS ALBERTO KELLEY Jr. Rep #:[id number] : 1970 54 From: Farzad mejia MD PCP: Dr. Jhonatan Garcia DO Status:ADM BRENNA Location: [place] [address] Providers Date of Admission: 12/20/24 Primary Care [...] Course: Per HPI: CARLOS ALBERTO KELLEY, is [id number] male history of hypertension, gout, cardiomyopathy, GERD, diabetes, depression and anxiety, KOFFI who presented [facility] ED 12/20/2024 for right hand pain, [...] 76.3 H, Lymph % (Auto) 10.6 L, Parmer % (Auto) 10.6 H, Eos % (Auto) [...] (Auto) 68.8, Lymph % (Auto) 15.1 L, Parmer % (Auto) 13.4 H, Eos % (Auto) [...] swelling. No significant bony abnormality Reading Location: [id number] D/C Instructions DC O2, CPAP, BIPAP Needs Home O2 Discharge instructions: No Meaningful Use Info Meaningful Use Meaningful Use Diagnoses (Choose all that apply): None applicable Discharge Plan Admission Admit Date/Time: 12/20/24 17:52 Attending Provider: Farzad Camilo Primary Care Provider: Jhonatan Garcia Consulting Providers: Austin Estrada; Yaz eDe Instructions Additional Instructions / Restrictions: Plastic surgery [...] in before D/C Order can be placed): Alf Facility Charges/Coding Visit Charges Inpatient E&M: 47482 Disch Hosp >30min 12/21/24 1138 <Electronically signed by Farzad Camilo MD> Cosigner Signature (if applicable): CC: Dr. Farzad Camilo MD; Dr. Jhonatan Garcia DO~ Signed [facility] Work Phone: Evaluation + Plan note No data available for this section [facility] Evaluation + Plan note Future Appointments Appointment Date:11/03/2022 09:15:00 AM Scheduled Provider:ZHOU ESPINOSA Location:[facility] Appointment Type:CV [employer]CH[employer]ISE PRESENTATION [employer]OCIATE Appointment Date:11/08/2022 02:00:00 PM Scheduled Provider:GIRMA CORREA Location:[facility] Appointment Type:PC [employer]CH[employer]ISE PRESENTATION [employer]OCIATE Unassigned ED Follow Up [facility] Evaluation + Plan note Future Appointments Appointment Date:11/04/2022 08:45:00 AM Scheduled Provider: Location:[facility] Appointment Type:CV [employer]CH[employer]ISE PRESENTATION [employer]OCIATE Appointment Date:11/08/2022 02:00:00 PM Scheduled Provider:GIRMA CORREA Location:[facility] Appointment Type:PC [employer]CH[employer]ISE PRESENTATION ASSOCIATE Unassigned ED Follow Up [facility] Evaluation + Plan note Future Appointments Appointment Date:12/13/2022 03:00:00 PM Scheduled Provider:GIRMA CORREA Location:[facility] Appointment Type:PC OV Follow Up [facility] Evaluation + Plan note Future Appointments Appointment Date:02/07/2023 02:30:00 PM Scheduled Provider:GIRMA CORREA Location:[facility] Appointment Type:PC OV [facility] Evaluation + Plan note Future Appointments Appointment Date:06/20/2023 02:30:00 PM Scheduled Provider:GIRMA CORREA Location:[facility] Appointment Type:PC OV Future Scheduled Tests Laboratory* Basic Metabolic Panel 04/01/23 * A1C Hemoglobin 06/09/23 * Lipid Profile 06/09/23 * Complete Metabolic Panel 06/09/23 [facility] Evaluation + Plan note Future Appointments Appointment Date:08/22/2023 12:00:00 PM Scheduled Provider: Location:[facility] Appointment Type:PF PFT w/Bronchodiltor Appointment Date:11/07/2023 02:00:00 PM Scheduled Provider:GIRMA CORREA Location:[facility] Appointment Type:PC OV Future Scheduled Tests Laboratory* Basic Metabolic Panel 04/01/23 [facility] Evaluation + Plan note Future Appointments Appointment Date:11/07/2023 02:00:00 PM Scheduled Provider:GIRMA CORREA Location:[facility] Appointment Type:PC OV Future Scheduled Tests Laboratory* Basic Metabolic Panel 04/01/23 [facility] Evaluation + Plan note Future Appointments Appointment Date:06/20/2023 10:00:00 AM Scheduled Provider:GIRMA CORREA Location:[facility] Appointment Type:PC OV Hospital Follow-Up Appointment Date:06/20/2023 02:30:00 PM Scheduled Provider:GIRMA CORREA Location:[facility] Appointment Type:PC OV Appointment Date:07/17/2023 03:15:00 PM Scheduled Provider:ZHOU ESPINOSA Location:[facility] Appointment Type:CV OV Future Scheduled Tests Laboratory* Basic Metabolic Panel 04/01/23 * A1C Hemoglobin 06/09/23 * Lipid Profile 06/09/23 * Complete Metabolic Panel 06/09/23 [facility] Evaluation + Plan note Future Appointments Appointment Date:02/13/2024 03:30:00 PM Scheduled Provider:GIRMA CORREA Location:[facility] Appointment Type: Wellness Annual w/Labs Future Scheduled Tests Laboratory* Basic Metabolic Panel 04/01/23 * Prostate Specific Antigen 02/07/24 * A1C Hemoglobin 02/07/24 * Lipid Profile 02/07/24 * Complete Metabolic Panel 02/07/24 [facility] Evaluation + Plan note Future Appointments Appointment Date:03/26/2024 08:00:00 PM Scheduled Provider: Location:[facility] Appointment Type: Sameer Study Appointment Date:05/14/2024 03:00:00 PM Scheduled Provider:GIRMA CORREA Location:[facility] Appointment Type: OV Lab Check Future Scheduled Tests Laboratory* Basic Metabolic Panel 02/07/24 * Basic Metabolic Panel 02/19/24 * Basic Metabolic Panel 04/01/23 * Magnesium Level 02/07/24 * A1C Hemoglobin 05/14/24 * Lipid Profile 05/14/24 * Complete Metabolic Panel 05/14/24 [facility] Evaluation + Plan note Future Appointments Appointment Date:04/01/2024 01:00:00 PM Scheduled Provider:DAMIAN SHRETSHA MD Location:[facility] Appointment Type:GS OV Appointment Date:05/14/2024 03:00:00 PM Scheduled Provider:GIRMA CORREA Location:[facility] Appointment Type:PC OV Lab Check Future Scheduled Tests Laboratory* Basic Metabolic Panel 02/07/24 * Basic Metabolic Panel 02/19/24 * Basic Metabolic Panel 04/01/23 * Magnesium Level 02/07/24 * A1C Hemoglobin 05/14/24 * Lipid Profile 05/14/24 * Complete Metabolic Panel 05/14/24 [facility] Evaluation + Plan note Future Appointments Appointment Date:02/13/2024 03:30:00 PM Scheduled Provider:GIRMA CORREA Location:[facility] Appointment Type: Wellness Annual w/Labs Future Scheduled Tests Laboratory* Basic Metabolic Panel 02/07/24 * Basic Metabolic Panel 02/19/24 * Basic Metabolic Panel 04/01/23 * Magnesium Level 02/07/24 [facility] Evaluation + Plan note Future Appointments Appointment Date:08/12/2024 03:00:00 PM Scheduled Provider:GIRMA CORREA Location:[facility] Appointment Type: Wellness Annual Future Scheduled Tests Laboratory* Basic Metabolic Panel 02/07/24 * Basic Metabolic Panel 02/19/24 * Magnesium Level 02/07/24 [facility] Evaluation + Plan note Future Appointments Appointment Date:10/23/2024 04:00:00 PM Scheduled Provider:GIRMA CORREA Location:[facility] Appointment Type:PC OV Appointment Date:11/08/2024 02:30:00 PM Scheduled Provider:EYD WEBER Location:[facility] Appointment Type: OV Hospital Follow Up Future Scheduled Tests Laboratory* Basic Metabolic Panel 02/07/24 * Basic Metabolic Panel 12/10/24 * Basic Metabolic Panel 02/19/24 * Magnesium Level 02/07/24 * Complete Blood Count 08/27/24 * Complete Metabolic Panel 08/27/24 * N-Terminal proBNP 08/27/24 [facility] Evaluation noteNo assessment information available [facility] Work Phone: Hospital Discharge instructions Additional Instructions Call Dr. Etienne's office on Monday to be seen later this coming week.[facility] Work Phone: Hospital Discharge instructions No data available for this section [facility] Discharge instructions Additional Instructions Chest x-ray negative. COVID and flu negative. Vapor rubs, humidifier. May use loratadine D that you have at home daily. Cough suppressants as needed. Follow-up with your doctor. Return if any worsening symptoms.[facility] Work Phone: Hospital Discharge instructionsAdditional Instructions Your cardiac workup negative in the ED. Your CT angiogram chest negative for blood clots or any acute findings., Your oxygen dropped down while in the emergency department. Your facility continue oxygen as needed. You have sleep apnea history.[facility] Work Phone: Progress note No data available for this section [facility] Reason for referral (narrative)No reason for referral information availableWGood [facility]ar[facility] Work Phone: Summary note* MACIEJ Rasmussen: PERFORM Event Display: Patient Summary Documents Authored Date: [facility] Summary Purpose Family History No Family History [...] October 23, 2022 6 :09am Power of Cement Truck Loader No October 23, 2022 6:09am Advance Directive Response Recorded Date/ Time Living Will No February 12, 2023 7:08am Power of Cement Truck Loader No January 7:08am Advance Directive Response Recorded Date/ Time Do you have a Healthcare Power of Cement Truck Loader? No December 19, 2024 10:20pm Advance Directive Response Recorded Date/ Time Do you have a Healthcare Power of Cement Truck Loader? No December 19, 2024 10:20pm Do you have a Healthcare Power of Cement Truck Loader? No December 20, 2024 2:24pm Advance Directive Response Recorded Date/ Time Do you have a Healthcare Power of Cement Truck Loader? No December 19, 2024 10:20pm Do you have a Healthcare Power of Cement Truck Loader? No December 20, 2024 9:23pm Advance Directive Response Recorded Date/ Time Do you have a Healthcare Power of Cement Truck Loader? No December 19, 2024 10:20pm Do you have a Healthcare Power of Cement Truck Loader? No December 20, 2024 9:23pm Do you have a Healthcare Power of Cement Truck Loader? No December 27, 2024 11:24pm Chief Complaint and Reason for Visit Chief Complaint CHEST PAIN Chief Complaint CHEST PAIN cough Chief Complaint Admit Date RESIDENTIAL LAB WORK October 24, 2024 6:2 0am LAB WORK October 28, 2024 4:00a m LAB WORK October 30, 2024 5:55a m LAB WORK November 04, 2024 5:00a m LAB WORK November 06, 2024 4:00 am CHEST PAIN December 19, 2024 10:1 8pm Chief Complaint Admit Date RESIDENTIAL LAB WORK October 24, 2024 6:2 0am [...] December 202024 5:52pm Chief Complaint Admit Date RESIDENTIAL LAB WORK October 24, 2024 6:2 0am [...] right hand December 20, 2024 5 :52pm Chief Complaint Admit Date RESIDENTIAL LAB WORK October 24, 2024 6:2 0am [...] AFTER CO NTRAST December 21, 2024 8:45am shortness of breath December 28, 2024 3:2 7am Reason for Visit Admit Date Extravasation of intravenous contrast me dium December 20, 2024 5:52pm IV infiltrate December 20, 2024 5:52 pm Localized swelling on right hand December 202024 5:52pm Swelling of right hand December 20, 2024 5 :52pm Atrial fibrillation with RVR December 28, 2024 3:27am Chronic anticoagulation December 28, 2024 3:27am Fever December 28, 2024 3:2 7am History of fracture of right ankle Augus t 2024 3:27am Morbid obesity with BMI of 45.0-49.9, ad ult December 28, 2024 3:27am Obstructive sleep apnea December 28, 2024 3:27am Palpitations December 28, 2024 3:2 7am Postoperative infection December 28, 2024 3:27am Additional Source Comments (unrecognized sect ion and content) No Status Records FoundNo Status Records FoundNo Status Records FoundNo Status Records FoundNo Status Records FoundNo Status Records FoundNo Status Records FoundNo Status Records FoundNo Status Records FoundNo Status Records FoundNo Status Records Found INFORMATION SOURCE (unrecogn ized section and content) DATE CREATED AUTHOR 02/15/2021 [facility] DATE CREATED AUTHOR AUTHOR'S ORGANIZ ATION 08/25/2021 [facility] DATE CREATED AUTHOR AUTHOR'S ORGANIZ ATION 2021 [employer] DATE CREATED AUTHOR AUTHOR'S ORGANIZ ATION 06/07/2022 [facility] DATE CREATED AUTHOR AUTHOR'S ORGANIZ ATION 08/17/2022 [facility] W DATE CREATED AUTHOR AUTHOR'S ORGANIZ ATION 10/13/2023 [facility] DATE CREATED AUTHOR AUTHOR'S ORGANIZ ATION 02/02/2024 [facility] [employer] DATE CREATED AUTHOR AUTHOR'S ORGANIZ ATION 10/23/2024 [facility] DATE CREATED AUTHOR AUTHOR'S ORGANIZ ATION 12/20/2024 [facility] DATE CREATED AUTHOR AUTHOR'S ORGANIZ ATION 12/25/2024 [facility] DATE CREATED AUTHOR AUTHOR'S ORGANIZ ATION 12/26/2024 [facility] Care Team (unrecognized sect ion and content) Care Team Personnel Name: PHYSICIAN, NONE Position: Physician Member Role: Primary Care Physician Name: MALORIE PEGUERO MD Position: ED Physician Member Role: ED Physician Address: Address: [facility] [address] [place], [place] [address] Name: SHAHEEN Sinha Position: AO RN Member Role: ED RN Care Team Related Persons Name: MAST, MARILYN Care Team Personnel Name: PHYSICIAN, NONE Position: Physician Member Role: Primary Care Physician Name: JEREMIE MCCORMACK MD Position: ED Physician Member Role: ED Physician Address: Address[address] [facility] [address] [facility] [place] [address]- Name: Halley Staples RN Position: AO RN [...] Dr. Jameel Brown DO Emergency Provider Active ZACARIAS COHN Primary Care Provider Active Team Status: Active Member Role Status Dates Dr. Ollie Bright MD Family Provider Active Girma Correa MERCHANDISE PRESENTATION ASSOCIATE, MERCHANDISE PRESENTATION ASSOCIATE-C Primary Care Provider Active Team Status: Inactive Member Role Status Dates Dr. Jameel Brown DO Attending Provider, Emergency Provider Active ZACARIAS COHN Primary Care Provider Active Team Status: Inactive Member Role Status Dates Dr. Nguyễn Al DO Emergency Provider Active Girma Correa MERCHANDISE PRESENTATION ASSOCIATE, MERCHANDISE PRESENTATION ASSOCIATE-C Primary Care Provider Active Team Status: Active Member Role/Relationship Status Dates Dr. Jhonatan Garcia DO Primary Care Provider Active Team Status: Active Member Role/Relationship Status Dates Girma Correa MERCHANDISE PRESENTATION ASSOCIATE, MERCHANDISE PRESENTATION ASSOCIATE-C Primary Care Provider Active Start: October 24, 2024 Dr. Dolly HOLCOMB MD Attending Provider Active Start: October 24, 2024 Team Status: Active Member Role/Relationship Status Dates Girma Correa MERCHANDISE PRESENTATION ASSOCIATE, MERCHANDISE PRESENTATION ASSOCIATE-C Primary Care Provider Active Start: October 28, 2024 Dr. Dolly HOLCOMB MD Attending Provider Active Start: October 28, 2024 Dr. Dolly HOLCOMB MD Referring Provider Active Start: October 28, 2024 Team Status: Active Member Role/Relationship Status Dates Girma Correa NP, MERCH[employer]ISE PRESENTATION ASSOCIATE-C Primary Care Provider Active Start: October 30, 2024 Dr. Dolly HOLCOMB MD Attending Provider Active Start: October 30, 2024 Team Status: Active Member Role/Relationship Status Dates Girma Correa MERCHANDISE PRESENTATION ASSOCIATE, MERCHANDISE PRESENTATION ASSOCIATE-C Primary Care Provider Active Start: November 04, 2024 Dr. Dolly HOLCOMB MD Attending Provider Active Start: November 04, 2024 Team Status: Active Member Role/Relationship Status Dates Girma Correa MERCHANDISE PRESENTATION ASSOCIATE, MERCHANDISE PRESENTATION ASSOCIATE-C Primary Care Provider Active Start: November 06, [...] Inactive Member Role/Relationship Status Dates Girma Correa MERCHANDISE PRESENTATION ASSOCIATE, MERCHANDISE PRESENTATION ASSOCIATE-C Primary Care Provider Active Start: November 04, [...] DO Primary Care Provider Active Start: December 28, 2024 Dr. Nguyễn Le , DO Emergency Provider Active Start : December 28, 2024 Dr. Keagan Rowe , DO Admit Provider Active Start: December 28, 2024 Dr. Keagan Rowe , DO Attending Provider Active Start: December 28, 2024 Goals (unrecognized section and content) Goals [...] BE BASED ON THE PRIMARY CLINICAL RECORDS. [facility]. provides no warranty or guarantee of the accuracy or completeness of information in this document.
[2024-12-28] MEDS: Piperacil/Tazobactam 3.375 GM in 0.9% Normal Saline (50mL MB+) 50 ML IV ×3 (05:16→21:22)
[2024-12-28 05:49] LABS: Mucous, Urine 0 SEEN /hpf (<or=2+); Red Blood Cells-Urine 0 SEEN /hpf (0-5); Squamous Epithelial Cells - UA 0 SEEN /hpf (0-5)
[2024-12-28 05:53] LABS: Color, Urine Straw (Yellow); Glucose, Dipstick Normal (Normal); Ketone-Dipstick Negative (Negative); Leukocyte Esterase-Dipstick Negative /ul (Negative); Nitrite-Dipstick Negative (Negative); Occult Blood-Urine 25 /ul (Negative); Protein-Dipstick 15 mg/dl (Negative); Specific Gravity, Urine 1.015 (1.002-1.030); Urine Bilirubin Dipstick Negative (Negative)
[2024-12-28 06:03] LABS: Hematocrit 45.1 % (40-54); Hemoglobin 14.2 g/dL (13.0-16.5); Immature Granulocytes Count 0.020 X10^3/uL (0.0-0.0); Mean Corp Hgb Conc 31.5 g/dL (32-36); Mean Corpuscular Volume 85.6 fL (80-94); Mean Platelet Vol. 10.1 fl (6.2-12.0); NRBC Flagged by Analyzer 0 % (0-5); Platelet Count 150 K/mm3 (150-450); RBC Distribution Width CV 13.4 % (11.6-14.6); RBC Distribution Width SD 42.1 fl (35.1-43.9); Red Blood Count 5.27 M/mm3 (4.6-6.2); White Blood Count 5.7 K/mm3 (4.4-11.0)
[2024-12-28 06:34] LABS: AST(SGOT) 23 U/L (<=37); Alanine Aminotransfer ALT/SGPT 12 U/L (<=46); Albumin, Serum 3.5 g/dL (3.5-5.0); Alkaline Phosphatase 77 U/L (40-129); Anion Gap 10 (5-15); BUN 9 mg/dL (4-19); BUN/Creat Ratio 12.1 RATIO (10-20); Calcium,Total 8.6 mg/dL (7.6-11.0); Carbon Dioxide 25.5 mmol/L (21.0-32.0); Chloride 102 mmol/L (98-108); Estimated Creatinine Clearance 155.83 ml/min (50-250); Globulin 3.3 g/dL (2.2-4.2); Glucose 145 mg/dL (70-99); Magnesium 1.9 mg/dL (1.5-2.2); Potassium 4.2 mmol/L (3.3-5.1)
[2024-12-28] MEDS: Albuterol 2.5 MG/3 ML VIAL.NEB. INHALATION ×3 (07:29→19:40)
[2024-12-28] MEDS: Budesonide Respules 0.5 MG/2 ML AMPUL.NEB. INHALATION ×2 (07:29→19:41)
[2024-12-28 07:52] LABS: Troponin T High Sensitivity 12 ng/L (<=22)
[2024-12-28 08:03] LABS: Troponin T High Sens 2 HR 13 ng/L (<=22)
[2024-12-28] MEDS: Potassium Chloride Oral Tablet 20 MEQ PO (08:31)
[2024-12-28 10:36] LABS: Troponin T High Sens 4 HR 11 ng/L (<=22)
--- NOTE | 2024-12-28 11:18 | PN_ITS ---
Subjective Subjective Patient seen and examined. He was admitted with a complaint of palpitations and was found to be in afib with RVR. He had unsuccessful cardioversion in the ED. He was admitted to the PCU and converted to normal sinus rhythm spontaneously. He had no active complaints. He denied any chest pain, palpitations, dizziness, nausea, vomiting or any other symptoms. Review of systems is otherwise negative. Objective Data Objective Data Vital Signs: Vital Signs Temp Pulse Resp BP Pulse Ox O2 Del Method O2 Flow Rate 98.3 F 60 18 122/76 H 96 Nasal Cannula 2 12/28/24 08:56 12/28/24 08:56 12/28/24 08:56 12/28/24 08:56 12/28/24 08:56 12/28/24 08:56 12/28/24 08:42 Oxygen Flow Rate (L/min) [3] 4 Oxygen Flow Rate (L/min) [2] 4 Oxygen Flow Rate (L/min) [1 ( 4 Initial Baseline)] Oxygen Flow Rate (L/min) 2 Oxygen Delivery Method [3] Nasal Cannula Oxygen Delivery Method [2] Nasal Cannula Oxygen Delivery Method [1 ( Nasal Cannula Initial Baseline)] Oxygen Delivery Method Nasal Cannula Weight: 313 lb 7.957 oz Body Mass Index (BMI) 46.3 Intake & Output: Intake and Output for Last 24 Hours 12/26/24 12/27/24 12/28/24 23:59 23:59 23:59 Intake Total 50 / 50 Balance 50 / 50 Lab / Micro Data 12/28/24 05:39 12/28/24 05:39 Labs: Laboratory Results - last 24 hr 12/27/24 23:34: WBC 6.0, RBC 5.02, Hgb 13.6, Hct 42.7, MCV 85.1, MCH 27.1, MCHC 31.9 L, RDW Std Deviation 41.7, RDW Coeff of Tee 13.4, Plt Count 146 L, MPV 10.3, Immature Gran % (Auto) 0.500, Neut % (Auto) 68.5, Lymph % (Auto) 17.2 L, M nargis % (Auto) 11.8 H, Eos % (Auto) 1.3, Baso % (Auto) 0.7, Absolute Neuts (auto) 4.1, Absolute Lymphs (auto) 1.04, Nucleated RBC % 0, PT 15.4 H, INR 1.2, APTT 28.4, Sodium 136, Potassium 3.7, Chloride 101, Carbon Dioxide 26.0, Anion Gap 9, BUN 9, Creatinine 0.79, Estim Creat Clear Calc 152.63, Est GFR (MDRD) Non-Af 106, BUN/Creatinine Ratio 10.9, Glucose 167 H, Calcium 8.7 12/28/24 04:40: POC Glucose 141 H 12/28/24 05:36: Urine Color Straw, Urine Clarity Clear, Urine pH 6.0, Ur Specific [place] 1.015, Urine Protein 15 H, Urine Glucose (UA) Normal, Urine Ketones Negative, Urine Occult Blood 25 H, Urine Nitrite Negative, Urine Bilirubin Negative, Urine Urobilinogen Normal, Ur Leukocyte Esterase Negative, Urine RBC 0 SEEN, Urine WBC 0 SEEN, Ur Squamous Epith Cells 0 SEEN, Urine Bacteria 0 SEEN, Urine Mucus 0 SEEN 12/28/24 05:39: WBC 5.7, RBC 5.27, Hgb 14.2, Hct 45.1, MCV 85.6, MCH 26.9 L, M CHC 31.5 L, RDW Std Deviation 42.1, RDW Coeff of Tee 13.4, Plt Count 150, MPV 10.1, Immature Gran % (Auto) 0.400, Neut % (Auto) 65.2, Lymph % (Auto) 19.9, M nargis % (Auto) 11.6 H, Eos % (Auto) 1.8, Baso % (Auto) 1.1 H, Absolute Neuts (auto) 3.7, Absolute Lymphs (auto) 1.13, Nucleated RBC % 0, Sodium 137, Potassium 4.2, Chloride 102, Carbon Dioxide 25.5, Anion Gap 10, BUN 9, Creatinine 0.77, Estim Creat Clear Calc 155.83, Est GFR (MDRD) Non-Af 107, BUN/Creatinine Ratio 12.1, Glucose 145 H, Calcium 8.6, Phosphorus 2.8, Magnesium 1.9, Total Bilirubin 0.30, AST 23, ALT 12, Alkaline Phosphatase 77, Troponin T High Sens 12 D, Total Protein 6.7, Albumin 3.5, Globulin 3.3, Albumin/Globulin Ratio 1.1, TSH 5.130 H 12/28/24 06:59: Troponin T Hi Sens 2 Hr 13 12/28/24 09:26: Troponin T Hi Sens 4Hr 11 Radiography Diagnostic Testing: Radiology Impression Chest X-Ray 12/27/24 23:40 IMPRESSION: No acute cardiopulmonary disease. Reading Location: [facility] Physical Exam Const alert, oriented x3 and no apparent distress Constitutional Narrative: class III obesity General Appearance: cooperative HEENT normocephalic, head/scalp atraumatic, moist oral mucous membranes and oropharynx normal Eyes EOMs intact bilaterally Neck no lymphadenopathy and supple Lymph Lymphatic: no lymphedema noted Resp Resp Narrative: mildly diminished breath sounds bibasally, no wheezes or crackles. On 2L of oxygen by nasal canula. Cardio regular rate, regular rhythm, S1 normal heart sound, S2 normal heart sound and no murmurs GI normal to inspection, nondistended, normoactive bowel sounds, soft to palpation, non-tender and non-distended Extremity normal capillary refill, no clubbing, cyanosis or edema and no calf tenderness General Extremity: no tenderness to palpation of joints or extremities Skin General Skin Exam: no breakdown Neuro CN's II-XII intact bilaterally, no focal motor deficits and no sensory deficits noted Motor Exam: strength 5/5 throughout Psych thought process normal and cooperative Appearance: appropriate Assessment & Plan Assessment/Plan (1) Atrial fibrillation with RVR: PLAN: Plan #Afib * was admitted with afib with RVR and had unsuccessful cardioversion in the ED. He subsequently converted to normal sinus rhythm * currently in NSR. On dofetilide * cardiology consulted. 2D echo also ordered and pending. * troponins were not elevated * on xarelto * #Recent right ankle fracture * s/p post op infection of right ankle. on IV zosyn for a total of 8 weeks * on oxycodone prn. * #ELevated TSH * TSH is elevated at 5.13. Was normal on 10/28/2024 at 3.370. * check free T4 and T3. * #Benign essential hypertension: on amlodipine, metoprolol and hCTZ. IV hydralazine prn #Hyperlipidemia: on statin #Type 2 diabetes mellitus: on dulaglutide. ISS. Accuchecks ACHS. # Depression with anxiety: on duloxetine and trazodone #Muscle spasms: on tizanidine #GERD: on PPI #Gout: on allopurinol DVT prophylaxis: on xarelto Charges/Coding Visit Charges Inpatient E&M: 62990 Subs Hosp L2
--- NOTE | 2024-12-28 13:31 | CASEMGMT ---
Addendum entered by Wanda Shipman 12/28/24 15:50: Social Work Pt can return to [facility] when ready, has a bed hold. SW placed green sheet on chart w/transport forms. SW also asked in [facility] if [facility] can refer pt for counseling, as he would benefit from it. MARCIE Saab Original Note: Social Work SW met w/pt, confirmed plan is to return to [facility] at d/c, no SNF list needed at this time. SW did send updates to [facility], inquired if pt can return on the weekend if ready or if a new precert would be needed, SW will await response. Pt then went on to tell SW that he lost his three months ago, support offered. He would be interested in seeing a therapist at [facility], SW will let [facility] know. MARILYN will continue to follow. MARCIE Saab
--- NOTE | 2024-12-28 13:38 | PCM.CONS.C ---
Documented by User: Dr. Sanchez Mitchell MD 12/28/24 15:10 Assessment & Plan Assessment/Plan (1) Atrial fibrillation with RVR: PLAN: Plan # Paroxysmal atrial fibrillation - Presented with atrial fibrillation with RVR - Currently in NSR, s/p synchronized cardioversion in the ED yesterday, started after which on IV Cardizem, spontaneously cardioverted to nsr overnight. 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 - Treat underlying osteomyelitis which could be the trigger for recent A-fib with RVR - Check TSH. - Maintian K>4 and mag>2. # HTN - Well-controlled on current regimen, will continue. #Hypercholesterolemia - On statins, will continue. # Obesity hypoventilation syndrome\obstructive sleep apnea - He has not been on CPAP - Recommend to follow-up with pulmonary for CPAP machine advised him to comply with its use HPI Consult Data Date of Consult: 12/28/24 HPI Narrative Reason for Consultation: Atrial fibrillation HPI Narrative: SOCORRO KELLEY, is a 54 M who presents with palpitation noted to be atrial fibrillation Patient has the below mentioned past medical history Major depression Hypokalemia Paroxysmal atrial fibrillation Ankle fracture, right Insomnia Obstructive sleep apnea Depression Hyperlipemia Cardiomyopathy Muscle weakness (generalized) Anxiety Asthma Type 2 diabetes mellitus COPD (chronic obstructive pulmonary disease) CHF (congestive heart failure) Glaucoma Gout Diabetes Hypertension He was off Xarelto secondary to ankle fracture s/p surgery recently, presented with atrial fibrillation with RVR, attempted cardioversion by ED physician failed initially, he was started on Cardizem and will resume Tikosyn but he used to be on in addition to Xarelto for anticoagulation. [facility] Medical History (Updated 12/28/24 @ 05:[address] Nguyễn Al DO) Major depression Hypokalemia Paroxysmal atrial fibrillation Ankle fracture, right Insomnia Obstructive sleep apnea Depression Hyperlipemia Cardiomyopathy Muscle weakness (generalized) Anxiety Asthma Type 2 diabetes mellitus COPD (chronic obstructive pulmonary disease) CHF (congestive heart failure) Glaucoma Gout Diabetes Hypertension Home Medications Medication Instructions Recorded Last Taken Type allopurinol 100 mg tablet 100 mg PO DAILY 10/23/22 Unknown History amlodipine 5 mg tablet 5 mg PO DAILY 10/23/22 Unknown History hydrochlorothiazide 50 mg tablet 50 mg PO DAILY 10/23/22 Unknown History omeprazole 40 mg capsule,delayed 40 mg PO DAILY 10/23/22 Unknown History release rivaroxaban 20 mg tablet (Xarelto) 20 mg PO DAILY #30 tabs 10/23/22 Unknown Rx albuterol sulfate 2.5 mg/3 mL 2.5 mg inhalation Q6H 12/19/24 Unknown History (0.083 %) solution for nebulization bempedoic acid 180 mg tablet 180 mg PO DAILY 12/19/24 Unknown History (Nexletol) dofetilide 250 mcg capsule 250 mcg PO BID 12/19/24 Unknown History duloxetine 20 mg capsule,delayed 20 mg PO DAILY 12/19/24 Unknown History release metoprolol succinate 100 mg 100 mg PO BID 12/19/24 Unknown History tablet,extended release 24 hr potassium chloride 20 mEq 20 meq PO DAILY 12/19/24 Unknown History tablet,extended release(part/cryst) pravastatin 40 mg tablet 40 mg PO DAILY 12/19/24 Unknown History spironolactone 25 mg tablet 25 mg PO DAILY 12/19/24 Unknown History tizanidine 2 mg tablet 2 mg PO Q8H PRN muscle spasticity 12/19/24 Unknown History trazodone 100 mg tablet 100 mg PO QHS 12/19/24 Unknown History acetaminophen 325 mg capsule 650 mg PO Q4H PRN fever or pain 12/20/24 Unknown History cetirizine 10 mg tablet 10 mg PO DAILY 12/20/24 Unknown History dulaglutide 1.5 mg/0.5 mL 1.5 mg subcut .WEEKLY 12/20/24 Unknown History subcutaneous pen injector (Trulicity) fluticasone 100 mcg-salmeterol 50 1 inh inhalation BID 12/20/24 Unknown History mcg/dose blistr powdr for inhalation (Advair Diskus) fluticasone 100 mcg-salmeterol 50 2 inh inhalation BID 12/20/24 Unknown History mcg/dose blistr powdr for inhalation (Advair Diskus) piperacillin-tazobactam 2.25 2.25 g IV Q8H 12/27/24 Unknown History gram/50 mL in dextrose(iso) IV piggyback (Zosyn) Allergy/AdvReac Type Severity Reaction Status Date / Time [id number] Reductase Allergy Mild Hives Verified 12/27/24 23:23 Inhibitor Iodinated Contrast Media AdvReac Intermediate Rash Verified 12/27/24 23:23 (contrast dye - iodinated) Social History housing: [facility] Smoking Status: Former smoker Physical Exam Narrative General: Alert, oriented x3, morbidly obese HEENT: Normocephalic, normal vision, normal EOM. Neck: Short neck, Mallampati score of 4 , normal JVD, no carotid Bruit, no thyromegaly , no lymphadenopathy. Chest wall: Normal shape, non tender. Cardiac: Normal rate and rhythm, no rubs, gallops or murmurs noted. Respiratory: Diminished air entry bilaterally. Abdomen: Nondistended, nontender, no ascites or masses or organomegaly noted, normal bowel sounds. Extremities: Normal pulsations, no edema, normal strength and muscle mass. Neurological: Gross CN examination is normal, Normal power in all extremities. Objective Data Vital Signs: Vital Signs Temp Pulse Resp BP Pulse Ox O2 Del Method O2 Flow Rate 98.3 F 60 18 122/76 H 96 Nasal Cannula 2 12/28/24 08:56 12/28/24 08:56 12/28/24 08:56 12/28/24 08:56 12/28/24 08:56 12/28/24 08:56 12/28/24 08:42 Oxygen Flow Rate (L/min) [3] 4 Oxygen Flow Rate (L/min) [2] 4 Oxygen Flow Rate (L/min) [1 ( 4 Initial Baseline)] Oxygen Flow Rate (L/min) 2 Oxygen Delivery Method [3] Nasal Cannula Oxygen Delivery Method [2] Nasal Cannula Oxygen Delivery Method [1 ( Nasal Cannula Initial Baseline)] Oxygen Delivery Method Nasal Cannula Weight: 313 lb 7.957 oz Body Mass Index (BMI) 46.3 Intake & Output: Intake and Output for Last 24 Hours 12/26/24 12/27/24 12/28/24 23:59 23:59 23:59 Intake Total 50 / 50 Balance 50 / 50 Lab / Micro Data 12/29/24 06:20 12/29/24 06:20 Labs: Laboratory Results - last 24 hr 12/27/24 23:34: WBC 6.0, RBC 5.02, Hgb 13.6, Hct 42.7, MCV 85.1, MCH 27.1, MCHC 31.9 L, RDW Std Deviation 41.7, RDW Coeff of Tee 13.4, Plt Count 146 L, MPV 10.3, Immature Gran % (Auto) 0.500, Neut % (Auto) 68.5, Lymph % (Auto) 17.2 L, [place] % (Auto) 11.8 H, Eos % (Auto) 1.3, Baso % (Auto) 0.7, Absolute Neuts (auto) 4.1, Absolute Lymphs (auto) 1.04, Nucleated RBC % 0, PT 15.4 H, INR 1.2, APTT 28.4, Sodium 136, Potassium 3.7, Chloride 101, Carbon Dioxide 26.0, Anion Gap 9, BUN 9, Creatinine 0.79, Estim Creat Clear Calc 152.63, Est GFR (MDRD) Non-Af 106, BUN/Creatinine Ratio 10.9, Glucose 167 H, Calcium 8.7 12/28/24 04:40: POC Glucose 141 H 12/28/24 05:36: Urine Color Straw, Urine Clarity Clear, Urine pH 6.0, Ur Specific [place] 1.015, Urine Protein 15 H, Urine Glucose (UA) Normal, Urine Ketones Negative, Urine Occult Blood 25 H, Urine Nitrite Negative, Urine Bilirubin Negative, Urine Urobilinogen Normal, Ur Leukocyte Esterase Negative, Urine RBC 0 SEEN, Urine WBC 0 SEEN, Ur Squamous Epith Cells 0 SEEN, Urine Bacteria 0 SEEN, Urine Mucus 0 SEEN 12/28/24 05:39: WBC 5.7, RBC 5.27, Hgb 14.2, Hct 45.1, MCV 85.6, MCH 26.9 L, MCHC 31.5 L, RDW Std Deviation 42.1, RDW Coeff of Tee 13.4, Plt Count 150, MPV 10.1, Immature Gran % (Auto) 0.400, Neut % (Auto) 65.2, Lymph % (Auto) 19.9, [place] % (Auto) 11.6 H, Eos % (Auto) 1.8, Baso % (Auto) 1.1 H, Absolute Neuts (auto) 3.7, Absolute Lymphs (auto) 1.13, Nucleated RBC % 0, Sodium 137, Potassium 4.2, Chloride 102, Carbon Dioxide 25.5, Anion Gap 10, BUN 9, Creatinine 0.77, Estim Creat Clear Calc 155.83, Est GFR (MDRD) Non-Af 107, BUN/Creatinine Ratio 12.1, Glucose 145 H, Calcium 8.6, Phosphorus 2.8, Magnesium 1.9, Total Bilirubin 0.30, AST 23, ALT 12, Alkaline Phosphatase 77, Troponin T High Sens 12 D, Total Protein 6.7, Albumin 3.5, Globulin 3.3, Albumin/Globulin Ratio 1.1, TSH 5.130 H 12/28/24 06:59: Troponin T Hi Sens 2 Hr 13 12/28/24 09:26: Troponin T Hi Sens 4Hr 11, Free T4 0.90 12/28/24 11:58: POC Glucose 146 H Cardiology Labs/Tests 12/27/24 23:34: WBC 6.0, RBC 5.02, Hgb 13.6, Hct 42.7, MCV 85.1, MCH 27.1, MCHC 31.9 L, Plt Count 146 L, MPV 10.3, Immature Gran % (Auto) 0.500, Neut % (Auto) 68.5, Lymph % (Auto) 17.2 L, [place] % (Auto) 11.8 H, Eos % (Auto) 1.3, Baso % (Auto) 0.7, Absolute Neuts (auto) 4.1, Nucleated RBC % 0, PT 15.4 H, INR 1.2, APTT 28.4, Sodium 136, Potassium 3.7, Chloride 101, Carbon Dioxide 26.0, Anion Gap 9, BUN 9, Creatinine 0.79, Est GFR (MDRD) Non-Af 106, BUN/Creatinine Ratio 10.9, Glucose 167 H, Calcium 8.7 12/28/24 05:36: Urine Color Straw, Urine Clarity Clear, Urine pH 6.0, Ur Specific [place] 1.015, Urine Protein 15 H, Urine Glucose (UA) Normal, Urine Ketones Negative, Urine Occult Blood 25 H, Urine Nitrite Negative, Urine Bilirubin Negative, Urine Urobilinogen Normal, Ur Leukocyte Esterase Negative, Urine RBC 0 SEEN, Urine WBC 0 SEEN 12/28/24 05:39: WBC 5.7, RBC 5.27, Hgb 14.2, Hct 45.1, MCV 85.6, MCH 26.9 L, MCHC 31.5 L, Plt Count 150, MPV 10.1, Immature Gran % (Auto) 0.400, Neut % (Auto) 65.2, Lymph % (Auto) 19.9, [place] % (Auto) 11.6 H, Eos % (Auto) 1.8, Baso % (Auto) 1.1 H, Absolute Neuts (auto) 3.7, Nucleated RBC % 0, Sodium 137, Potassium 4.2, Chloride 102, Carbon Dioxide 25.5, Anion Gap 10, BUN 9, Creatinine 0.77, Est GFR (MDRD) Non-Af 107, BUN/Creatinine Ratio 12.1, Glucose 145 H, Calcium 8.6, Phosphorus 2.8, Magnesium 1.9, Total Bilirubin 0.30 Rhythm: EKG: ECHO: Stress Test: Cardiac Cath: PCI: CT Surgery: Holter monitor: EPS: PPM: CXR: Chest CT Scan: Radiography Diagnostic Testing: Radiology Impression Chest X-Ray 12/27/24 23:40 IMPRESSION: No acute cardiopulmonary disease. Reading Location: [facility] Echocardiogram 12/28/24 03:56 Interpretation Summary Normal left ventricular size. Moderately increased left ventricular wall thickness. Normal LVEF with estimated ejection fraction of 55 to 60%. No regional wall motion abnormalities. Grade II diastolic function. Mild Right ventricular dilation with preserved function. Mild to moderately dilated left atrium Normal right atrium Unable to estimate RV systolic pressure due to insufficient tricuspid regurgitant envelope. No hemodynamically significant valvular heart disease. Normal pericardium Ordering Physician: Keagan Rowe Referring Physician: Jhonatan Garcia Performed By: Cristel Price, RDCS, RVT Documented by User: Dr. Landry Etienne MD 12/30/24 09:32 Assessment & Plan Assessment/Plan (1) Atrial fibrillation with RVR: HPI Consult Data Date of Consult: 12/30/24 [facility] Medical History (Updated 12/28/24 @ 05:[address] Nguyễn Al DO) Major depression Hypokalemia Paroxysmal atrial fibrillation Ankle fracture, right Insomnia Obstructive sleep apnea Depression Hyperlipemia Cardiomyopathy Muscle weakness (generalized) Anxiety Asthma Type 2 diabetes mellitus COPD (chronic obstructive pulmonary disease) CHF (congestive heart failure) Glaucoma Gout Diabetes Hypertension Home Medications Medication Instructions Recorded Last Taken Type allopurinol 100 mg tablet 100 mg PO DAILY 10/23/22 Unknown History amlodipine 5 mg tablet 5 mg PO DAILY 10/23/22 Unknown History hydrochlorothiazide 50 mg tablet 50 mg PO DAILY 10/23/22 Unknown History omeprazole 40 mg capsule,delayed 40 mg PO DAILY 10/23/22 Unknown History release rivaroxaban 20 mg tablet (Xarelto) 20 mg PO DAILY #30 tabs 10/23/22 Unknown Rx albuterol sulfate 2.5 mg/3 mL 2.5 mg inhalation Q6H 12/19/24 Unknown History (0.083 %) solution for nebulization bempedoic acid 180 mg tablet 180 mg PO DAILY 12/19/24 Unknown History (Nexletol) dofetilide 250 mcg capsule 250 mcg PO BID 12/19/24 Unknown History duloxetine 20 mg capsule,delayed 20 mg PO DAILY 12/19/24 Unknown History release metoprolol succinate 100 mg 100 mg PO BID 12/19/24 Unknown History tablet,extended release 24 hr potassium chloride 20 mEq 20 meq PO DAILY 12/19/24 Unknown History tablet,extended release(part/cryst) pravastatin 40 mg tablet 40 mg PO DAILY 12/19/24 Unknown History spironolactone 25 mg tablet 25 mg PO DAILY 12/19/24 Unknown History tizanidine 2 mg tablet 2 mg PO Q8H PRN muscle spasticity 12/19/24 Unknown History trazodone 100 mg tablet 100 mg PO QHS 12/19/24 Unknown History acetaminophen 325 mg capsule 650 mg PO Q4H PRN fever or pain 12/20/24 Unknown History cetirizine 10 mg tablet 10 mg PO DAILY 12/20/24 Unknown History dulaglutide 1.5 mg/0.5 mL 1.5 mg subcut .WEEKLY 12/20/24 Unknown History subcutaneous pen injector (Trulicity) fluticasone 100 mcg-salmeterol 50 1 inh inhalation BID 12/20/24 Unknown History mcg/dose blistr powdr for inhalation (Advair Diskus) fluticasone 100 mcg-salmeterol 50 2 inh inhalation BID 12/20/24 Unknown History mcg/dose blistr powdr for inhalation (Advair Diskus) piperacillin-tazobactam 2.25 2.25 g IV Q8H 12/27/24 Unknown History gram/50 mL in dextrose(iso) IV piggyback (Zosyn) Allergy/AdvReac Type Severity Reaction Status Date / Time Bipcain-CYT-AzH Reductase Allergy Mild Hives Verified 12/27/24 23:23 Inhibitor Iodinated Contrast Media AdvReac Intermediate Rash Verified 12/27/24 23:23 (contrast dye - iodinated) Social History housing[facility] Smoking Status: Former smoker Risk Stratification Risk Stratification Applicable: No Lab / Micro Data 12/29/24 06:20 12/29/24 06:20
[2024-12-29 03:13] VITALS: BMI 46.0
[2024-12-29 03:20] VITALS: BP 128/65; PULSE 77; RESP 18; TEMP 35.9; O2SAT 96
[2024-12-29] MEDS: Piperacil/Tazobactam 3.375 GM in 0.9% Normal Saline (50mL MB+) 50 ML IV (05:12)
[2024-12-29 06:40] LABS: Hematocrit 40.2 % (40-54); Hemoglobin 12.5 g/dL (13.0-16.5); Immature Granulocytes Count 0.010 X10^3/uL (0.0-0.0); Mean Corp Hgb Conc 31.1 g/dL (32-36); Mean Corpuscular Volume 86.5 fL (80-94); Mean Platelet Vol. 9.5 fl (6.2-12.0); NRBC Flagged by Analyzer 0 % (0-5); Platelet Count 127 K/mm3 (150-450); RBC Distribution Width CV 13.6 % (11.6-14.6); RBC Distribution Width SD 43.1 fl (35.1-43.9); Red Blood Count 4.65 M/mm3 (4.6-6.2); White Blood Count 3.8 K/mm3 (4.4-11.0)
[2024-12-29] MEDS: Budesonide Respules 0.5 MG/2 ML AMPUL.NEB. INHALATION (06:52)
[2024-12-29] MEDS: Albuterol 2.5 MG/3 ML VIAL.NEB. INHALATION ×2 (06:52→12:23)
[2024-12-29 06:53] VITALS: PULSE 69; RESP 18; O2SAT 93
[2024-12-29 07:14] LABS: Anion Gap 9 (5-15); BUN 8 mg/dL (4-19); BUN/Creat Ratio 11.1 RATIO (10-20); Calcium,Total 8.8 mg/dL (7.6-11.0); Carbon Dioxide 25.3 mmol/L (21.0-32.0); Chloride 103 mmol/L (98-108); Estimated Creatinine Clearance 168.59 ml/min (50-250); Glucose 147 mg/dL (70-99); Potassium 4.0 mmol/L (3.3-5.1)
[2024-12-29 09:20] VITALS: BP 120/76; PULSE 94; RESP 16; TEMP 36.6; O2SAT 93
[2024-12-29] MEDS: Potassium Chloride Oral Tablet 20 MEQ PO (10:07)
--- NOTE | 2024-12-29 11:13 | TREXTCAR_ITS ---
Diet Diet Order/Speech Therapy: INPATIENT Hospital Diet / Speech Therapy Order(s) 12/28/24 08:53 Diet: Consistent Carb - Calorie Controlled Food consistency:: Regular Liquid Consistency:: Regular/Thin How many daily calories?: 1800 calorie Routine Orders/Code Status Enema Type: Fleetz Enema Frequency: Daily PRN Suppository Frequency: Daily PRN DC O2, CPAP, BIPAP needs Home O2 Discharge instructions: No Wound(s) Dorsal side of right hand: Wound Type: Skin Tear Right Reed: Wound Type: Puncture Outside of Right Heel: Wound Type: Puncture Inside of Right Heel: Wound Type: Puncture Therapies Weight Bearing: Weight bearing as tolerated Problem/Diagnosis (1) Atrial fibrillation with RVR: Status: Acute Code(s): I48.91 - Unspecified atrial fibrillation Plan #Afib * was admitted with afib with RVR and had unsuccessful cardioversion in the ED. He subsequently converted to normal sinus rhythm * currently in NSR. On dofetilide * cardiology consulted. 2D echo also ordered and pending. * troponins were not elevated * on xarelto * #Recent right ankle fracture * s/p post op infection of right ankle. on IV zosyn for a total of 8 weeks * on oxycodone prn. * #ELevated TSH * TSH is elevated at 5.13. Was normal on 10/28/2024 at 3.370. * check free T4 and T3. * #Benign essential hypertension: on amlodipine, metoprolol and hCTZ. IV hydralazine prn #Hyperlipidemia: on statin #Type 2 diabetes mellitus: on dulaglutide. ISS. Accuchecks ACHS. # Depression with anxiety: on duloxetine and trazodone #Muscle spasms: on tizanidine #GERD: on PPI #Gout: on allopurinol DVT prophylaxis: on xarelto Allergies/Procedures Done in Hospital Allergies [id number] Reductase Inhibitor Allergy (Mild, Verified 12/27/24 23:23) Hives Iodinated Contrast Media (contrast dye - iodinated) Adverse Reaction (Intermediate, Verified 12/27/24 23:23) Rash Procedures: None Type of Care/Length of Stay Estimated LOS: More Than 30 Days Type of Care Needed: Intermediate Rehab Potential: Fair Prognosis: Fair Additional Orders/Day of Discharge Day of Discharge: 12/29/24 Discharge Plan Admission Admit Date/Time: 12/28/24 03:48 Primary Reason for Your Visit: afib with RVR Attending Provider: Tricia Carvalho Primary Care Provider: Jhonatan Garcia Consulting Providers: Enrique Groves; Gala Solano; Sanchez Mitchell; Ghada Callejas; Akash Harman; Richard Conner; Landry Etienne; Keagan Garrett; Shaina Alatorre; Zack Love; Ezio Ty; Gio Forman; Ruperto Haynes; Landon Ramirez NP; Barbara Beyer PA; Teofilo Alvarado; Keagan Rowe Instructions Patient Instructions: AFib Dc Discharge Orders/Prescriptions Prescriptions: Continued hydrochlorothiazide 50 mg Tablet 50 mg PO DAILY amlodipine 5 mg Tablet 5 mg PO DAILY allopurinol 100 mg Tablet 100 mg PO DAILY omeprazole 40 mg Capsule,Delayed Release(Dr/Ec) 40 mg PO DAILY Xarelto 20 mg tablet 20 mg PO DAILY Qty: 30 0RF Rx Instructions: must administer with evening meal trazodone 100 mg tablet 100 mg PO QHS tizanidine 2 mg tablet 2 mg PO Q8H PRN (Reason: muscle spasticity) spironolactone 25 mg tablet 25 mg PO DAILY albuterol sulfate 2.5 mg /3 mL (0.083 %) solution for nebulization 2.5 mg inhalation Q6H Patient Comments: [NO ORIGINAL SIG] Rx Instructions: via nebulizer pravastatin 40 mg tablet 40 mg PO DAILY metoprolol succinate 100 mg tablet extended release 24 hr 100 mg PO BID dofetilide 250 mcg capsule 250 mcg PO BID potassium chloride 20 mEq tablet,ER particles/crystals 20 meq PO DAILY duloxetine 20 mg capsule,delayed release(DR/EC) 20 mg PO DAILY Nexletol 180 mg tablet 180 mg PO DAILY cetirizine 10 mg tablet 10 mg PO DAILY fluticasone propion-salmeterol [Advair Diskus] 100-50 mcg/dose blister with device 1 inh inhalation BID fluticasone propion-salmeterol [Advair Diskus] 100-50 mcg/dose blister with d evice 2 inh inhalation BID Trulicity 1.5 mg/0.5 mL pen injector 1.5 mg subcut .WEEKLY Patient Comments: patient takes on acetaminophen 325 mg capsule 650 mg PO Q4H PRN (Reason: fever or pain) Zosyn in dextrose (iso-osm) 2.25 gram/50 mL piggyback 2.25 g IV Q8H Referrals / Follow Up: Landry Etienne MD [Med Staff - Active Staff] - Within 1 Week Jhonatan Garcia DO [Primary Care Provider] - Within 1 Week Disposition Disposition (needs filled in before D/C Order can be placed): [facility]
--- NOTE | 2024-12-29 11:14 | DS.PCM_ITS ---
Providers Date of Admission: 12/28/24 Date of Discharge: 12/29/24 Primary Care Physician: Dr. Jhonatan Garcia, Consultations 12/28/24 04:09 Consult: Cardiology Routine Consulting Provider: [facility] Reason for Consult: PAF; with RVR s/p failed DCCV EMERGENT Consult: No MD Notified: Yes Date Notified: 12/28/24 Time Notified: 03:51 Method of Notification: ED Physician Initiated Reason For Visit: PAF WITH RVR S/P FAILED DCCV WITH FEVER & Diagnosis Discharge Diagnosis (1) Atrial fibrillation with RVR: Status: Acute Code(s): I48.91 - Unspecified atrial fibrillation Plan #Afib * was admitted with afib with RVR and had unsuccessful cardioversion in the ED. He subsequently converted to normal sinus rhythm * currently in NSR. On dofetilide * cardiology consulted. 2D echo also ordered and pending. * troponins were not elevated * on xarelto * #Recent right ankle fracture * s/p post op infection of right ankle. on IV zosyn for a total of 8 weeks * on oxycodone prn. * #ELevated TSH * TSH is elevated at 5.13. Was normal on 10/28/2024 at 3.370. * check free T4 and T3. * #Benign essential hypertension: on amlodipine, metoprolol and hCTZ. IV hydralazine prn #Hyperlipidemia: on statin #Type 2 diabetes mellitus: on dulaglutide. ISS. Accuchecks ACHS. # Depression with anxiety: on duloxetine and trazodone #Muscle spasms: on tizanidine #GERD: on PPI #Gout: on allopurinol DVT prophylaxis: on xarelto Medications at Discharge Home Medications allopurinol 100 mg tablet 100 mg PO DAILY 10/23/22 amlodipine 5 mg tablet 5 mg PO DAILY 10/23/22 hydrochlorothiazide 50 mg tablet 50 mg PO DAILY 10/23/22 omeprazole 40 mg capsule,delayed release 40 mg PO DAILY 10/23/22 rivaroxaban 20 mg tablet (Xarelto) 20 mg PO DAILY #30 tabs 10/23/22 albuterol sulfate 2.5 mg/3 mL (0.083 %) solution for nebulization 2.5 mg inhalation Q6H 12/19/24 bempedoic acid 180 mg tablet (Nexletol) 180 mg PO DAILY 12/19/24 dofetilide 250 mcg capsule 250 mcg PO BID 12/19/24 duloxetine 20 mg capsule,delayed release 20 mg PO DAILY 12/19/24 metoprolol succinate 100 mg tablet,extended release 24 hr 100 mg PO BID 12/19/24 potassium chloride 20 mEq tablet,extended release(part/cryst) 20 meq PO DAILY 12/19/24 pravastatin 40 mg tablet 40 mg PO DAILY 12/19/24 spironolactone 25 mg tablet 25 mg PO DAILY 12/19/24 tizanidine 2 mg tablet 2 mg PO Q8H PRN muscle spasticity 12/19/24 trazodone 100 mg tablet 100 mg PO QHS 12/19/24 acetaminophen 325 mg capsule 650 mg PO Q4H PRN fever or pain 12/20/24 cetirizine 10 mg tablet 10 mg PO DAILY 12/20/24 dulaglutide 1.5 mg/0.5 mL subcutaneous pen injector (Trulicity) 1.5 mg subcut .WEEKLY 12/20/24 fluticasone 100 mcg-salmeterol 50 mcg/dose blistr powdr for inhalation (Advair Diskus) 1 inh inhalation BID 12/20/24 fluticasone 100 mcg-salmeterol 50 mcg/dose blistr powdr for inhalation (Advair Diskus) 2 inh inhalation BID 12/20/24 piperacillin-tazobactam 2.25 gram/50 mL in dextrose(iso) IV piggyback (Zosyn) 2.25 g IV Q8H 12/27/24 Hospital Course Operations None Procedures 2-D Echocardiogram Summary of Care Provided Minutes Spent on Discharge: 43 Hospital Course: Patient is a 54-year-old male with a past medical history as outlined was admitted through the ED on 12/28/2024 with a complaint of palpitations. His symptoms started about 90 minutes prior to his coming into the ED. He did have a history of A-fib and said his symptoms felt like his previous episodes of A- fib with RVR. He admitted to assisted shortness of breath but denied any chest pain. He had been compliant with his dofetilide. Review of symptoms otherwise negative. In the ED he was found to be in A-fib with RVR. He had several unsuccessful attempts at cardioversion in the ED. He was given a Cardizem bolus and subsequently converted to normal sinus rhythm. Chest x-ray showed no acute cardiopulmonary pathology. He was admitted and managed with A-fib with RVR. Cardiology was consulted. He had 2D echo which showed normal left ventricular size and moderately increased left ventricular wall thickness with EF of 55 to 60% and no regional wall motion abnormalities noted. Grade 2 diastolic function. He remained in normal sinus rhythm. Cardiology was consulted and recommended that patient continue his current medication of dofetilide and metoprolol. He was also to continue on his xarelto. He is to follow up with his PCP and cardiology within 1-2 weeks. Patient seen and examined prior to discharge. He had no complaints and felt well. He had an uneventful night. Review of systems otherwise negative. Labs and vitals reviewed. Medication reviewed and reconciled. [facility] was [facility] to [facility]. Physical Exam Const alert, oriented x3 and no apparent distress Constitutional Narrative: class III obesity General Appearance: cooperative and comfortable HEENT normocephalic, head/scalp atraumatic, hearing grossly normal bilaterally, moist oral mucous membranes and oropharynx normal Mouth: oral and palatal mucosa normal Eyes PERRL, EOMs intact bilaterally and conjunctivae normal Neck no lymphadenopathy, supple and no JVD Lymph Lymphatic: no lymphedema noted Resp Resp Narrative: mildly diminished breath sounds bibasally, no wheezes or crackles. On 2L of oxygen by nasal canula. Cardio regular rate, regular rhythm, S1 normal heart sound, S2 normal heart sound and no murmurs GI normal to inspection, nondistended, normoactive bowel sounds, soft to palpation, non-tender and non-distended Extremity normal to inspection, full ROM, normal capillary refill, no clubbing, cyanosis or edema and no calf tenderness Extremity Narrative: Patient has RUE PICC line with no signs of surrounding inflammation or infection. General Extremity: no tenderness to palpation of joints or extremities Skin Skin Narrative: Patient with evidence of recent Right ankle Ex-Fix with no evidence of rash, abscess, wounds or jaundice. General Skin Exam: no breakdown Neuro oriented x3, CN's II-XII intact bilaterally, moves all extremities, no focal motor deficits and no sensory deficits noted Sensorium / Orientation: awake, alert, oriented to person, oriented to place and oriented to time Speech: speech normal Motor Exam: strength 5/5 throughout Psych thought process normal, cooperative and affect normal Appearance: appropriate Weight / BMI Weight Weight: 312 lb 2.793 oz Body Mass Index (BMI) 46.0 ABG / Lab / Microbiology Data 12/29/24 06:20 12/29/24 06:20 Laboratory: Laboratory Results - last 24 hr 12/28/24 16:48: POC Glucose 121 H 12/28/24 22:51: POC Glucose 205 H 12/29/24 05:15: POC Glucose 144 H 12/29/24 06:20: WBC 3.8 L, RBC 4.65, Hgb 12.5 L, Hct 40.2, MCV 86.5, MCH 26.9 L, MCHC 31.1 L, RDW Std Deviation 43.1, RDW Coeff of Tee 13.6, Plt Count 127 L, MPV 9.5, Immature Gran % (Auto) 0.300, Neut % (Auto) 65.2, Lymph % (Auto) 20.3, [place] % (Auto) 11.3 H, Eos % (Auto) 2.4, Baso % (Auto) 0.5, Absolute Neuts (auto) 2.5, Absolute Lymphs (auto) 0.77 L, Nucleated RBC % 0, Sodium 138, Potassium 4.0, Chloride 103, Carbon Dioxide 25.3, Anion Gap 9, BUN 8, Creatinine 0.71, Estim Creat Clear Calc 168.59, Est GFR (MDRD) Non-Af 110, BUN/Creatinine Ratio 11.1, G lucose 147 H, Calcium 8.8 Radiography Diagnostic Testing: Radiology Impression Echocardiogram 12/28/24 03:56 Interpretation Summary Normal left ventricular size. Moderately increased left ventricular wall thickness. Normal LVEF with estimated ejection fraction of 55 to 60%. No regional wall motion abnormalities. Grade II diastolic function. Mild Right ventricular dilation with preserved function. Mild to moderately dilated left atrium Normal right atrium Unable to estimate RV systolic pressure due to insufficient tricuspid regurgitant envelope. No hemodynamically significant valvular heart disease. Normal pericardium Ordering Physician: Keagan Rowe Referring Physician: Jhonatan Garcia Performed By: Cristel Price, EJYSON, RVT D/C Instructions Discharge Activity: Return to Normal Activity Weight Bearing Status: Weight bearing as tolerated Call your doctor if you observe: Fever of 101 or Higher, Shortness of breath, Chest pain and Increased palpitations (irregular heartbeat) DC O2, CPAP, BIPAP Needs Home O2 Discharge instructions: No Meaningful Use Info Meaningful Use Meaningful Use Diagnoses (Choose all that apply): None applicable Discharge Plan Admission Admit Date/Time: 12/28/24 03:48 Primary Reason for Your Visit: afib with RVR Attending Provider: Tricia Carvalho Primary Care Provider: Jhonatan Garcia Consulting Providers: Enrique Groves; Gala Solano; Sanchez Mitchell; Ghada Callejas; Akash Harman; Richard Conner; Landry Etienne; Keagan Garrett; Shaina Alatorre; Zack Love; Ezio Ty; Gio Forman; Ruperto Haynes; Landon Ramirez NP; Barbara Beyer; Teofilo Alvarado; Keagan Rowe Instructions Patient Instructions: AFib Dc Discharge Orders/Prescriptions Prescriptions: Continued hydrochlorothiazide 50 mg Tablet 50 mg PO DAILY amlodipine 5 mg Tablet 5 mg PO DAILY allopurinol 100 mg Tablet 100 mg PO DAILY omeprazole 40 mg Capsule,Delayed Release(Dr/Ec) 40 mg PO DAILY Xarelto 20 mg tablet 20 mg PO DAILY Qty: 30 0RF Rx Instructions: must administer with evening meal trazodone 100 mg tablet 100 mg PO QHS tizanidine 2 mg tablet 2 mg PO Q8H PRN (Reason: muscle spasticity) spironolactone 25 mg tablet 25 mg PO DAILY albuterol sulfate 2.5 mg /3 mL (0.083 %) solution for nebulization 2.5 mg inhalation Q6H Patient Comments: [NO ORIGINAL SIG] Rx Instructions: via nebulizer pravastatin 40 mg tablet 40 mg PO DAILY metoprolol succinate 100 mg tablet extended release 24 hr 100 mg PO BID dofetilide 250 mcg capsule 250 mcg PO BID potassium chloride 20 mEq tablet,ER particles/crystals 20 meq PO DAILY duloxetine 20 mg capsule,delayed release(DR/EC) 20 mg PO DAILY Nexletol 180 mg tablet 180 mg PO DAILY cetirizine 10 mg tablet 10 mg PO DAILY fluticasone propion-salmeterol [Advair Diskus] 100-50 mcg/dose blister with device 1 inh inhalation BID fluticasone propion-salmeterol [Advair Diskus] 100-50 mcg/dose blister with device 2 inh inhalation BID Trulicity 1.5 mg/0.5 mL pen injector 1.5 mg subcut .WEEKLY Patient Comments: patient takes on acetaminophen 325 mg capsule 650 mg PO Q4H PRN (Reason: fever or pain) Zosyn in dextrose (iso-osm) 2.25 gram/50 mL piggyback 2.25 g IV Q8H Referrals / Follow Up: Landry Eteinne MD [Med Staff - Active Staff] - Within 1 Week Jhonatan Garcia DO [Primary Care Provider] - Within 1 Week Disposition Disposition (needs filled in before D/C Order can be placed): [facility] Charges/Coding Visit Charges Inpatient E&M: 00191 Disch Hosp >30min
--- NOTE | 2024-12-29 12:09 | PCM.PN.CARD ---
Documented by User: Dr. Sanchez Mitchell MD 12/29/24 14:41 Subjective Subjective no new complaints Objective Data Vital Signs: Vital Signs Temp Pulse Resp BP Pulse Ox O2 Del Method O2 Flow Rate 96.7 F L 69 18 128/65 H 93 Nasal Cannula 2 12/29/24 03:20 12/29/24 06:53 12/29/24 06:53 12/29/24 03:20 12/29/24 06:53 12/29/24 07:46 12/29/24 07:46 Oxygen Flow Rate (L/min) [3] 4 Oxygen Flow Rate (L/min) [2] 4 Oxygen Flow Rate (L/min) [1 ( 4 Initial Baseline)] Oxygen Flow Rate (L/min) 2 Oxygen Delivery Method [3] Nasal Cannula Oxygen Delivery Method [2] Nasal Cannula Oxygen Delivery Method [1 ( Nasal Cannula Initial Baseline)] Oxygen Delivery Method Nasal Cannula Weight: 312 lb 2.793 oz Body Mass Index (BMI) 46.0 Intake & Output: Intake and Output for Last 24 Hours 12/27/24 12/28/24 12/29/24 23:59 23:59 23:59 Intake Total 1820 / 2720 1000 / 1000 Output Total 750 / 2550 2900 / 2900 Balance 1070 / 170 -1900 / -1900 Lab / Micro Data 12/29/24 06:20 12/29/24 06:20 Labs: Laboratory Results - last 24 hr 12/28/24 11:58: POC Glucose 146 H 12/28/24 16:48: POC Glucose 121 H 12/28/24 22:51: POC Glucose 205 H 12/29/24 05:15: POC Glucose 144 H 12/29/24 06:20: WBC 3.8 L, RBC 4.65, Hgb 12.5 L, Hct 40.2, MCV 86.5, MCH 26.9 L, MCHC 31.1 L, RDW Std Deviation 43.1, RDW Coeff of Tee 13.6, Plt Count 127 L, MPV 9.5, Immature Gran % (Auto) 0.300, Neut % (Auto) 65.2, Lymph % (Auto) 20.3, [place] % (Auto) 11.3 H, Eos % (Auto) 2.4, Baso % (Auto) 0.5, Absolute Neuts (auto) 2.5, Absolute Lymphs (auto) 0.77 L, Nucleated RBC % 0, Sodium 138, Potassium 4.0, Chloride 103, Carbon Dioxide 25.3, Anion Gap 9, BUN 8, Creatinine 0.71, Estim Creat Clear Calc 168.59, Est GFR (MDRD) Non-Af 110, BUN/Creatinine Ratio 11.1, Glucose 147 H, Calcium 8.8 Cardiology Labs/Tests 12/29/24 06:20: WBC 3.8 L, RBC 4.65, Hgb 12.5 L, Hct 40.2, MCV 86.5, MCH 26.9 L, MCHC 31.1 L, Plt Count 127 L, MPV 9.5, Immature Gran % (Auto) 0.300, Neut % (Auto) 65.2, Lymph % (Auto) 20.3, [place] % (Auto) 11.3 H, Eos % (Auto) 2.4, Baso % (Auto) 0.5, Absolute Neuts (auto) 2.5, Nucleated RBC % 0, Sodium 138, Potassium 4.0, Chloride 103, Carbon Dioxide 25.3, Anion Gap 9, BUN 8, Creatinine 0.71, Est GFR (MDRD) Non-Af 110, BUN/Creatinine Ratio 11.1, Glucose 147 H, Calcium 8.8 Rhythm: EKG: ECHO: Stress Test: Cardiac Cath: PCI: CT Surgery: Holter monitor: EPS: PPM: CXR: Chest CT Scan: Radiography Diagnostic Testing: Radiology Impression Echocardiogram 12/28/24 03:56 Interpretation Summary Normal left ventricular size. Moderately increased left ventricular wall thickness. Normal LVEF with estimated ejection fraction of 55 to 60%. No regional wall motion abnormalities. Grade II diastolic function. Mild Right ventricular dilation with preserved function. Mild to moderately dilated left atrium Normal right atrium Unable to estimate RV systolic pressure due to insufficient tricuspid regurgitant envelope. No hemodynamically significant valvular heart disease. Normal pericardium Ordering Physician: Keagan Rowe Referring Physician: Jhonatan Garcia Performed By: Cristel Price, JEYSON, RVT Physical Exam Narrative General: Alert, oriented x3, morbidly obese HEENT: Normocephalic, normal vision, normal EOM. Neck: Short neck, Mallampati score of 4 , normal JVD, no carotid Bruit, no thyromegaly , no lymphadenopathy. Chest wall: Normal shape, non tender. Cardiac: Normal rate and rhythm, no rubs, gallops or murmurs noted. Respiratory: Diminished air entry bilaterally. Abdomen: Nondistended, nontender, no ascites or masses or organomegaly noted, normal bowel sounds. Extremities: Normal pulsations, no edema, normal strength and muscle mass. Neurological: Gross CN examination is normal, Normal power in all extremities. Assessment & Plan Assessment/Plan (1) Atrial fibrillation with RVR: PLAN: Plan Assessment & Plan Assessment/Plan (1) Atrial fibrillation with RVR: PLAN: Plan # Paroxysmal atrial fibrillation - Presented with atrial fibrillation with RVR - Currently in NSR, s/p synchronized cardioversion in the ED yesterday, started after which on IV Cardizem, spontaneously cardioverted to nsr overnight. - Rate controlled using Tikosyn, metoprolol - [id number] score of 2 , On anticoagulation using Xarelto, continue - Continue current medical therapy - Treat underlying obstructive sleep apnea/obesity hypoventilation syndrome patient to see his pin setter to get CPAP machine. - Treat underlying osteomyelitis which could be the trigger for recent A-fib with RVR - Check TSH. - Maintian K>4 and mag>2. # HTN - Well-controlled on current regimen, will continue. #Hypercholesterolemia - On statins, will continue. # Obesity hypoventilation syndrome\obstructive sleep apnea - He has not been on CPAP - Recommend to follow-up with pulmonary for CPAP machine advised him to comply with its use Documented by User: Dr. Landry Etienne MD 12/30/24 11:02 Lab / Micro Data 12/29/24 06:20 12/29/24 06:20 Assessment & Plan Assessment/Plan (1) Atrial fibrillation with RVR: PLAN: Assessment/Plan (1) Atrial fibrillation with RVR: PLAN: Plan # Paroxysmal atrial fibrillation - Presented with atrial fibrillation with RVR - Currently in NSR, s/p synchronized cardioversion in the ED yesterday, started after which on IV Cardizem, spontaneously cardioverted to nsr overnight. - Rate controlled using Tikosyn, metoprolol - [id number] score of 2 , On anticoagulation using Xarelto, continue - Continue current medical therapy - Treat underlying obstructive sleep apnea/obesity hypoventilation syndrome patient to see his pin setter to get CPAP machine. - Treat underlying osteomyelitis which could be the trigger for recent A-fib with RVR - Check TSH. - Maintian K>4 and mag>2. # HTN - Well-controlled on current regimen, will continue. Charges/Coding Visit Charges Inpatient E&M: 87908 Disch Hosp >30min
[2024-12-29 12:23] VITALS: PULSE 73; RESP 18
== END 2024-12-29 13:16 | disposition skilled nursing facility (03) ==
LOC: ED 12-28 03:06 → PCU 12-28 04:26
PROVIDERS: Admitting Provider Internal Medicine; Emergency Provider Emergency Medicine; Visit Provider Student in an Organized Health Care Education/Training Program
DX: I48.0 Paroxysmal atrial fibrillation (principal); J44.89 Other specified chronic obstructive pulmonary disease; I42.9 Cardiomyopathy, unspecified; E66.2 Morbid (severe) obesity with alveolar hypoventilation; Z68.42 Body mass index [BMI] 45.0-49.9, adult; E66.813 Obesity, class 3; I10 Essential (primary) hypertension; E78.00 Pure hypercholesterolemia, unspecified; K21.9 Gastro-esophageal reflux disease without esophagitis; F41.8 Other specified anxiety disorders; T81.40XS Infection following a procedure, unspecified, sequela; M10.9 Gout, unspecified; S82.891S Other fracture of right lower leg, sequela; M19.90 Unspecified osteoarthritis, unspecified site; M62.838 Other muscle spasm; Z79.01 Long term (current) use of anticoagulants; Z79.51 Long term (current) use of inhaled steroids; G47.00 Insomnia, unspecified; Z79.899 Other long term (current) drug therapy; Z79.85 Long-term (current) use of injectable non-insulin antidiabetic drugs; Z87.891 Personal history of nicotine dependence; X58.XXXS Exposure to other specified factors, sequela; R94.6 Abnormal results of thyroid function studies
CPT/HCPCS: 36415; 36592; 71045; 80048; 80053; 81001; 82962; 83735; 84100; 84439; 84443; 84484; 85025; 85610; 85730; 92960; 93005; 93306; 94640; 94668; 96365; 96366; 96375; 99221; 99252; 99285; 99406; Q9957; A4216; C8929; G0378; G0463

== ENCOUNTER → 2025-01-23 | Outpatient (REF) | payer MEDICAID, SELFPAY ==
--- OUTSIDE RECORDS SUMMARY | 2025-01-23 04:11 | XMS RPT_ITS | CCD ---
Author Organization [facility] Care Team Providers Care Senior Net Software Engineer Name Role Phone Zacarias Hoyos Referring Unavailable Zacarias Hoyos Primary Care Unavailable STRESS TESTS, INV CARD Attending Unavailab Gem Gunter Attending Unavailable ZACARIAS HOYOS Referring Unavailable HOYOS ZACARIAS Primary Care Unavailable STRESS TESTS, INV CARD Attending Unavailab ZACARIAS Hawley Referring Unavailable HOYOSZACARIAS RAMIREZ Primary Care Unavailable HOYOS, ZACARIAS Primary Care Unavailable Gem Barr Attending Unavailable ZACARIAS HOYOS Referring Unavailable Melissa Ayala Attending Unavailable PHYSICIAN, NONE Primary Care Physician Unavailab ZACARIAS Hawley Attending Unavailable HOYOS, ZACARIAS Primary Care Unavailable HOYOS, ZACARIAS Primary Care Unavailable KIM MEJIA Attending Unavailable ZACARIAS HOYOS Attending Unavailable SELF, REFERRAL Referring Unavailable HOYOS, ZACARIAS Primary Care Unavailable SUNNY GALLEGO-SHAWN, GIRMA Primary Care Physician Kristin JAMISON, Roxane Izquierdo Unavailable Unavailable ELIEZER SURESH Attending Unavailable GIRMA CORREA Primary Care Unavailable JAD WATTS Attending Leo CORREA GIRMA Primary Care Unavailable HELENA GAINES MD Consulting Unavailable CINDY FLORES MD Attending Unavailable DAVID PETTIT, CINDY Aden Admitting Unavailable CINDY FLORES MD Consulting Unavailable JAD WATTS Attending JAD Ryan Admitting GIRMA Strong [facility] Unavailable JAD WATTS Attending JAD Ryan Admitting GIRMA Strong Primary Care Unavailable PITO CORREASEY Attending Unavailable [facility] Unavailable [facility] Attending Unavailable LORSON, GREENBUSH Primary Care Unavailable BETZAIDA PETTIT, DEMI Attending Unavailable LORSON, GREENBUSH Primary Care Unavailable BETZAIDA PETTIT, DEMI Attending Unavailable LORSON, GREENBUSH Primary Care Unavailable SAMY JONES Attending Unavailable [facility] Primary Care Unavailable CINDY FLORES MD Consulting Unavailable EDWARDO PETTIT, DR LEVIN Attending Unavailabl e LORSON, GREENBUSH Primary Care Unavailable LORSON, GREENBUSH Primary Care Unavailable ANY DO SLOANE D Attending Unavailable LORSON, GREENBUSH Primary Care Unavailable ANY STONE SLOANE D Attending [facility] Admitting Unavailable [facility] Attending Unavailable [facility] Primary Care Unavailable [facility] Primary Care Unavailable KAVYA PSYCHIATRIC CLINICAL NURSE SPECIALIST-CAR SHIFTER, JONNY Attending U JAKE Ring Attending Unavailable JAKE MAXWELL Primary Care Unavailable JAKE MAXWELL Admitting Unavailable LORSON PSYCHIATRIC CLINICAL NURSE SPECIALIST-CAR SHIFTER, GREENBUSH Primary Care Unavail able DELORES MURO DO Attending Unavailable MANSOOR PETTIT, DR SONNY Woods Consulting Unavailable CIRILO PATEL DO Attending Unavailable LORSON PSYCHIATRIC CLINICAL NURSE SPECIALIST-CAR SHIFTER, GREENBUSH Primary Care Unavail able JEREMIE MCCORMACK MD Attending Unavailable LORSON PSYCHIATRIC CLINICAL NURSE SPECIALIST-CAR SHIFTER, [place] Primary Care Unavail able DR WILNER JOE MD Attending Unavailabl e LORSON PSYCHIATRIC CLINICAL NURSE SPECIALIST-CAR SHIFTER, [facility] Unavail able LORSON PSYCHIATRIC CLINICAL NURSE SPECIALIST-CAR SHIFTER, [place] Primary Care Unavail able CIRILO PATEL DO Attending Unavailable DR SAMY JONES MD, V Attending Unavai CINDY Vela MD Consulting Unavailable LORSON PSYCHIATRIC CLINICAL NURSE SPECIALIST-CAR SHIFTER, [place] Primary Care Unavail able DELORES MURO DO Admitting Unavailable DR ANGEL GARCES DO Attending Unavailable LORSON PSYCHIATRIC CLINICAL NURSE SPECIALIST-CAR SHIFTER, [place] Primary Care Unavail able LORSON PSYCHIATRIC CLINICAL NURSE SPECIALIST-CAR SHIFTER, [place] Primary Care Unavail able LORSON PSYCHIATRIC CLINICAL NURSE SPECIALIST-CAR SHIFTER, [place] Attending Unavail able LORSON PSYCHIATRIC CLINICAL NURSE SPECIALIST-CAR SHIFTER, [place] Primary Care Unavail able FARZANA PSYCHIATRIC CLINICAL NURSE SPECIALIST-CAR SHIFTERHELEN Attending Unava ilable LORSON PSYCHIATRIC CLINICAL NURSE SPECIALIST-CAR SHIFTER, [place] Primary Care Unavail able LORSON PSYCHIATRIC CLINICAL NURSE SPECIALIST-CAR SHIFTER, [place]USH Attending Unavail able LORSON PSYCHIATRIC CLINICAL NURSE SPECIALIST-CAR SHIFTER, [place] Primary Care Unavail able LORSON PSYCHIATRIC CLINICAL NURSE SPECIALIST-CAR SHIFTER, [place] Attending Unavail able LORSON PSYCHIATRIC CLINICAL NURSE SPECIALIST-CAR SHIFTER, [place] Primary Care Unavail able LORSON PSYCHIATRIC CLINICAL NURSE SPECIALIST-CAR SHIFTER, [place] Attending Unavail able LORSON PSYCHIATRIC CLINICAL NURSE SPECIALIST-CAR SHIFTER, [place] Primary Care Unavail able LORSON PSYCHIATRIC CLINICAL NURSE SPECIALIST-CAR SHIFTER, [place] Attending Unavail able LORSON PSYCHIATRIC CLINICAL NURSE SPECIALIST-CAR SHIFTER, [place] Primary Care Unavail able LORSON PSYCHIATRIC CLINICAL NURSE SPECIALIST-CAR SHIFTER, [place]ENBUSH Attending Unavail able Lorson BARREL TURNER-C, Pol[place] Primary Care Provider [phone] Jamila PETTIT, Dr. Alberto Attending Provider Unavaila jacob Marino MD, Dr. Alberto Referring Provider Unavaila jacob Tavera, Dr. Adrian Emergency Provider Jose STONE, Dr. Israel Primary Care Provider [phone] Ayan PETTIT, Dr. Arboleda Emergency Provider Natalie PETTIT, Dr. Mccabe Attending Provider Luiz PETTIT, Dr. Mukherjee Admit Provider Luiz PETTIT, Dr. Mukherjee Attending Provider Luiz PETTIT, Dr. Mukherjee Other Provider Dr. Austin Estrada MD Other Provider Ton PETTIT, Dr. Farzad Aden Attending Provider Ton PETTIT, Dr. Farzad Aden Other Provider Zaina Rounding Nurse, Tomer Unavailable Unavai labNoa, Dr. Adrian Attending Provider de Danny DO, Dr. Boogie Admit Provider Unavail able de Danny DO, Dr. Boogie Attending Provider Unav ailable de Danny DO, Dr. Boogie Admit Provider Unavail able de Danny DO, Dr. Boogie Other Provider Unavail able Dr. Enrique Groves MD Other Provider Unavailable Russ PETTIT, Dr. Cedeño Other Provider Unavailable Paula PETTIT, Dr. Bradford Other Provider [phone] Júnior PETTIT, Dr. Urrutia Other Provider Kimani PETTIT, Dr. Bustos Other Provider Dalila PETTIT, Dr. Ramos Other Provider Unavailable Lowell MD, Dr. Alatorre Other Provider Gerry STONE, Dr. Keagan Epstein Other Provider Landry PETTIT, Dr. Merritt Other Provider Ivan PETTIT, Dr. Dixon Other Provider Melony PETTIT, Dr. Holguin Other Provider Dickson PETTIT, Dr. Powers Other Provider Dallas PETTIT, Dr. Hickey Other Provider James BARREL TURNER-C, Landon Genao Other Provider Barbara Mehta Other Provider [phone] Teofilo Hill Other Provider [phone] Deven PETTIT, Dr. Tricia Little Attending Provider Deven PETTIT, Dr. Tricia Little Other Provider Dolly Walter Attending Unavailable Sunny HERMOSILLO Polo Primary Care Unavailable Keagan Rowe Admitting Unavailable Jhonatan Garcia Primary Care Unavailable Keagan Rowe Attending Unavailable Amro, Ahmed Consulting Unavailable Jabri, Ahmad Consulting Unavailable Mostafa, Sanchez Consulting Unavailable Júnior, Ghada Consulting Unavailable Harman, Akash Consulting Unavailable Dalila, Richard Consulting Unavailable Lowell, Stewardson Consulting Unavailable Keagan Garrett Consulting Unavailable Shaina Alatorre Consulting Unavailable Melissa Love Consulting Unavailable Ezio Ty Consulting Unavailabl e Gio Forman Consulting Unavailable Ruperto Haynes Consulting Unavailable James BARREL TURNER, Landon Genao Consulting Unavailable Pepito PRATHER, Barbara Izquierdo Consulting Unavail able Teofilo Alvarado Consulting Unavailable Keagan Rowe Consulting Unavailable Keagan Rowe Admitting Unavailable [facility] Primary Care Unavailable Amro, Ahmed Consulting Unavailable Tricia Carvalho Attending Unavailable Jabri, Ahmad Consulting Unavailable Mostafa, Sanchez Consulting Unavailable Júnior, Ghada Consulting Unavailable Kimani, Akash Consulting Unavailable Dalila, Richard Consulting Unavailable Lowell, Landry Consulting Unavailable Keagan Garrett Consulting Unavailable Shaina Alatorre Consulting Unavailable Melissa Love Consulting Unavailable Ezio Ty Consulting UnavailGio Paulino Consulting Unavailable Ruperto Haynes Consulting Unavailable Landon Ramirez NP Consulting Unavailable Pepito PRATHER, Barbara Izquierdo Consulting Unavail able Teofilo Alvarado Consulting Unavailable Keagan Rowe Consulting Unavailable [facility] Unavailable Yaz Dee Admitting Unavailable Farzad Camilo Attending Unavailable Austin Estrada Consulting Unavailable Yaz Dee Consulting Unavailable Dolly Walter Attending Unavailable [facility]ed [facility] Unavailable [facility] Unavailable Nguyễn Al Attending Unavailable Tricia Carvalho Attending Unavailable Tricia Carvalho Consulting Unavailable Landry Etienne Attending Unavailable [facility] Unavailable Austin Etsrada Attending Unavailable Yaz Dee Attending Unavailable Yaz Dee Admitting Unavailable Yaz Dee Consulting Unavailable [facility] Unavailable Austin Estrada Consulting Unavailable Austin Estrada Attending Unavailable Farzad Camilo Consulting Unavailable Farzad Camilo Attending Unavailable Asyaa AICHA, Dolly Referring Unavailable [facility] Unavailable Asyaa AICHA Dolly Attending Unavailable Asyaa AICHA Dolly Attending Unavailable [facility] Unavailable Jamila HOLCOMB Dolly Attending Unavailable Gugenovevaa AICHA, Dolly Referring Unavailable [facility] Unavailable LORSON PSYCHIATRIC CLINICAL NURSE SPECIALIST-[facility] Unavail able NANI VIVEROS DO Consulting Unavailable MAXIME COLLINS Attending Unavailable MANSOOR PETTIT, DR SONNY Woods Admitting Unavailable TE CASEY MD Consulting Unavailable NATHANIEL PETTIT FACPDELORES Consulting Unavail able LUIS PETTIT, DR GUAJARDO Consulting Unavailab herberth ELLIOTT MD, DR MAYRA ROBINS Consulting Unavaila jacob INGRAM MD, BRENNON Attending Unavailable CINDY FLORES MD Admitting Unavailable LORSON PSYCHIATRIC CLINICAL NURSE SPECIAL[facility] Unavail able HELENA GAINES MD Consulting Unavailable ALIZE PETTIT, DR UPTON Consulting Unavailable CINDY FLORES MD Consulting Unavailable MANSOOR PETTIT, DR SONNY Woods Admitting Unavailable LORSON PSYCHIATRIC CLINICAL NURSE [facility] Unavail able PERNELL SIMONS MD Attending Unavailable ISABEL GOODSON MD, DR MAYRA ROBINS Consulting Unavaila ble LASKOVSKWard DO, SHAYLEE Consulting Unavailabl murray DONOVAN DO, ANA LUISA Consulting Unavailable JACINTO PETTIT, TE Consulting Unavailable CORRY DO, CHANTAL S Consulting Unavailable LORSON PSYCHIATRIC CLINICAL NURSE SPECIALIST-CAR SHIFTER, [facility] Unavail able NANI VIVEROS DO Admitting Unavailable NANI VIVEROS DO Attending Unavailable LUPE STONE, DR ORTIZ Consulting Unavailable CORRY STONE, CHANTAL Reardon Consulting Unavailable MELISSA MARIN MD Consulting Unavailable HOSPITALIST, LARRY Consulting Unavailable NADIR PETTIT, DR JONES Admitting Unavailab le SUNNY PSYCHIATRIC CLINICAL NURSE SPECIALIST-CAR SHIFTER, [facility] Unavail able STEFANIE PETTIT, MOY Attending U julio cesar FORMAN MD, GIO Consulting Unavailable MESHA PETTIT, ARIEL Consulting Unavailable Allergies Allergy Classification Reported Allergen(s) Allergy Type Date of Onset Reaction(s) Facility (9 sources) HMG-CoA reductase inhibitor; Translations: [statins] Propensity to adverse reactions to drug myalgia [facility] (6 sources) Ktvisgh-Wyn-Rnh Reductase Inhibitor Allergy to substance 5 [facility] (1 source) Contrast media; Translations: [iodinated radiocontrast agents] Drug allergy [facility] (2 sources) Triiodobenzoic Acids Propensity to adverse reactions [address] [place] [address] (1 source) Iodinated Contrast Media Drug allergy (disorder) [address] [place] [address] Repository (1 source) Ppnpcfj-Fxt-Fgg Reductase Inhibitor Drug allergy (disorder) [address] [place] [address] Repository Medications Current Medications Medication Drug Class(es) Dates Sig (Normalized) Sig (Original) acetaminophen 325 mg oral capsule (17 sources) Start: 12-20-2024 take 2 capsules by [...] every six hours as needed for pain [place] 325- 5 mg oral tablet Dose = 1 tab(s), Oral, q6h, PRN As needed for severe pain, X 3 day(s), # 12 tab(s), 0 Refill(s), Contusion of rib on right side, 144.4 Start Date: 05/05/23 Stop Date: 05/08/23 Status: Ordered Start: 07-15-2022 End: 07-17-2022 take 1 tablet by mouth every six hours as needed for pain [place] 325- 5 mg oral tablet Dose = [...] day(s), # 28 tab(s), 0 Refill(s), Pharmacy: [facility]/pharmacy #[id number], Postoperative pain, 175, cm, 12/24/24 0:46:00 EDT, [...] day(s), # 28 tab(s), 0 Refill(s), Pharmacy: [facility]/pharmacy #[id number], Post-op pain, 177.8, cm, 10/17/24 [...] number: 1 albuterol 0.83 mg/ml inhalation solution (14 sources) beta2-Adrenerg ic Agonist Start: 12-19-2024 take [...] q6h, # 120 EA, 0 Refill(s), Pharmacy: [facility]/pharmacy #[id number], 176, cm, 08/27/24 14:57:00 EDT, [...] number: 1 amLODIPine 5 mg oral tablet (12 sources) Dihydropyridine Calcium Channel Kp Start: 10-23-2022 take 1 tablet by mouth once daily Amlodipine 5 mg Tablet Active 5 mg PO DAILY October 23, 2022 12:00am atorvastatin 40 mg oral tablet (3 sources) HMG-CoA Reductase Inhibitor Start: 08-09-2023 atorvastatin 40 mg oral tablet Dose : 40 mg = 1 tab(s), Oral, Daily, # 100 tab(s), 3 Refill(s), [id number], 178.5, cm, 08/08/23 13:32:00 EDT, Height, kg, 08/08/23 13:32:00 EDT, Dosing Weight Start Date: 08/09/23 Status: Ordered bempedoic acid 180 mg oral tablet (15 sources) Start: 05-14-2024 take 1 tablet by mouth once daily Bempedoic Acid (Nexletol) 180 mg tablet Active 180 mg PO DAILY December 19, 2024 12:00am benzonatate 100 mg oral capsule (8 sources) Non-narcotic Antitussive Start: 06-13-2023 End: 06-20-2023 [...] device, # 1 EA, 0 Refill(s), Pharmacy: [facility], 177.8, cm, 11/28/23 13:54:00 EDT, Height, 151.4, kg, 11/28/23 13:54:00 EDT, Dosing Weight Start Date: 12/12/23 Status: Ordered Quantity: 1.0 Unit: EA Repeat number: 1 Start: 12-12-2023 Blood Glucose Test Machine See Instructions, Use glucometer daily as directed for blood sugar checks. Dispense insurance preferred device, # 1 EA, 0 Refill(s), Pharmacy: [facility], 177.8, cm, 11/28/23 13:54:00 EDT, Height, 151.4, kg, 11/28/23 13:54:00 EDT, Dosing Weight Start Date: 12/12/23 Status: Ordered cephalexin 500 mg oral tablet (2 sources) Cephalosporin Antibacterial Start: 11-28-2024 End: 12-12-2024 cephalexin 500 mg oral tablet Dose : 500 mg = 1 tab(s), Oral, QID, X 14 day(s), # 56 tab(s), 0 Refill(s), 12/12/24 1:19:00 PM EDT, Pharmacy: [facility]/pharmacy #[id number], 177.8, cm, 11/24/24 11:36:00 EDT, [...] Daily, # 90 tab(s), 3 Refill(s), Pharmacy: [facility], 177.8, cm, 11/28/23 13:54:00 EDT, [...] BID, # 180 cap(s), 4 Refill(s), Pharmacy: [facility]/pharmacy #[id number], 177.8, cm, 10/02/24 6:28:00 EDT, Height, kg, 10/02/24 6:28:00 EDT, Dosing Weight Start Date: 10/04/24 Status: Ordered Quantity: 180.0 Unit: cap(s) Repeat number: 5 Start: 09-24-2024 Tikosyn 250 mc g oral capsule Dose : 250 mcg = 1 cap(s), Oral, BID, # 180 cap(s), 1 Refill(s), Pharmacy: [facility]/pharmacy #[id number], 175, cm, 09/05/24 16:01:00 EDT, Height, kg, 09/05/24 16:01:00 EDT, Dosing Weight Start Date: 09/24/24 Status: Ordered Quantity: 180.0 Unit: cap(s) Repeat number: 2 Start: 12-12-2023 Tikosyn 250 mc g oral capsule Dose : 250 mcg = 1 cap(s), Oral, BID, # 180 cap(s), 3 Refill(s), Pharmacy: [facility]/pharmacy #[id number], 177.8, cm, 11/28/23 13:54:00 EDT, Height, kg, 11/28/23 13:54:00 EDT, Dosing Weight Start Date: 12/12/23 Status: Ordered Quantity: 180.0 Unit: cap(s) Repeat number: 4 Start: 06-09-2023 Tikosyn 250 mc g oral capsule Dose : 250 mcg = 1 cap(s), Oral, BID, # 60 cap(s), 2 Refill(s), Pharmacy: [facility] #[id number], 176, cm, 06/07/23 13:36:00 EST, Height, kg, 06/07/23 13:36:00 EST, Dosing Weight Start Date: 06/09/23 Status: Ordered 0.5 ml dulaglutide 3 mg/ml auto-injector (20 sources) GLP-1 Receptor Agonist Start: 04-15-2024 End: 10-02-2025 Dulaglutide (Trulicity) 1.5 mg/0.5 mL pen injector Active 1.5 mg SC .WEEKLY December 20, 2024 12:00am Start: 12-12-2023 End: 04-02-2024 inject 1 dose by subcutaneous injection every week Trulicity Pen 1.5 mg/0.5 mL subcutaneous solution Dose : 1.5 mg =, Subcutaneous, qWeek, sent in absence of PCP, # 4 EA, 3 Refill(s), Pharmacy: [facility], 177.8, cm, 11/28/23 13:54:00 EDT, Height, kg, 11/28/23 13:54:00 EDT, Dosing Weight Start Date: 12/12/23 Stop Date: 04/02/24 Status: Ordered Start: 08-21-2023 inject 0.5 mL by sub cutaneous injection every week Trulicity Pen 0.75 mg/0.5 mL subcutaneous solution Dose : 0.75 mg = 0.5 mL, Subcutaneous, qWeek, # 2.5 mL, 5 Refill(s), 0.5 mL/Pen, Pharmacy: [facility] #[id number], 177.8, cm, 08/09/23 21:07:00 EDT, Height, kg, 08/09/23 21:07:00 EDT, Dosing Weight Start Date: 08/21/23 Status: Ordered DULoxetine 20 mg delayed release oral capsule (14 sources) Serotonin and Norepinephrine Reuptake Inhibitor Start: [...] qDay, # 30 cap(s), 3 Refill(s), Pharmacy: [facility], 177.8, cm, 11/28/23 13:54:00 EDT, Height, kg, 11/28/23 13:54:00 EDT, Dosing Weight Start Date: 12/12/23 Status: Ordered Start: 08-08-2023 End: 08-02-2024 FLUoxetine 10 mg oral capsul e Dose : 10 mg = 1 cap(s), Oral, qDay, # 30 cap(s), 0 Refill(s), Pharmacy: [facility], 175, cm, 05/14/24 13:59:00 EST, Height, kg, 05/14/24 13:57:00 EST, Dosing Weight Start Date: 05/14/24 Status: Ordered Quantity: 30.0 Unit: cap(s) Repeat number: 1 Start: 06-09-2023 FLUoxetine 10 mg oral capsule Dose : 10 mg = 1 cap(s), Oral, qDay, # 30 cap(s), 2 Refill(s), [facility]acy: [facility] #[id number], 176, cm, 06/07/23 13:36:00 EST, Height, kg, 06/07/23 13:36:00 EST, Dosing Weight Start Date: 06/09/23 Status: Ordered Start: 01-31-2023 FLUoxetine 20 mg oral tablet Dose : 20 mg = 1 tab(s), Oral, qDay, # 90 tab(s), 3 Refill(s), [facility]: [facility][id number], 175.3, cm, 12/23/22 6:37:00 EDT, Height, kg, 12/23/22 6:38:00 EDT, Dosing Weight Start Date: 01/31/23 Status: Ordered Start: 12-13-2022 FLUoxetine 20 mg oral tablet Dose : 20 mg = 1 tab(s), Oral, qDay, # 30 tab(s), 3 Refill(s), Pharmacy: [facility] #[id number], 175.3, cm, 12/13/22 14:43:00 EDT, Height Start Date: 12/13/22 Status: Ordered Start: 11-08-2022 FLUoxetine 10 mg oral tablet Dose : 10 mg = 1 tab(s), Oral, qDay, # 30 tab(s), 2 Refill(s), Pharmacy: [facility] #[id number], 177, cm, 11/08/22 13:50:00 EDT, Height Start Date: 11/08/22 Status: Ordered 120 actuat fluticasone propionate 0.11 mg/actuat metered dose inhaler (3 sources) Corticosteroid Start: 08-08-2023 End: 08-02-2024 take 2 puff(s) by inhalation twice daily Flovent HFA 110 mcg/inh inhalation aerosol 2 puff(s), Inhalation, BID, # 3 EA, 3 Refill(s), [id number], 178.5, cm, 08/08/23 13:32:00 EDT, Height, kg, 08/08/23 13:32:00 EDT, Dosing Weight Start Date: 08/08/23 Stop Date: 08/02/24 Status: Ordered Fluticasone Propion-Salmetero l (10 sources) Corticosteroid, beta2-Adrenergic Agonist Start: 12-20-2024 Fluticasone [...] PM, # 135 tab(s), 3 Refill(s), Pharmacy: [facility], 177.8, cm, 11/28/23 13:54:00 EDT, Height, kg, 11/28/23 13:54:00 EDT, Dosing Weight Start Date: 12/12/23 Status: Ordered Start: 08-08-2023 take 1 tablet by brandon th in the morning, then take 0.5 tablet by mouth in the evening Lasix 40 mg oral tablet See Instructions, 1 tab in AM and 0.5 tab in PM, # 135 tab(s), 3 Refill(s), [facility]acy: [facility] #[id number], 178.5, cm, 08/08/23 13:32:00 EDT, Height, kg, 08/08/23 13:32:00 EDT, Dosing Weight Start Date: 08/08/23 Status: Ordered Start: 11-14-2022 take 1 tablet by brandon th in the morning, then take 0.5 tablet by mouth in the evening Lasix 40 mg oral tablet See Instructions, 1 tab in AM and 0.5 tab in PM, # 135 tab(s), 0 Refill(s), Pharmacy: [facility] #[id number], 177, cm, 11/08/22 13:50:00 EDT, Height, kg, 11/08/22 13:50:00 EDT, Dosing Weight Start Date: 11/14/22 Status: Ordered Start: 10-23-2022 End: 12-20-2024 take 1 tablet by mouth once daily Furosemide (Lasix) 20 mg tablet Discontinued 20 mg PO DAILY 30 0 October 23, 2022 12:00am December 20, [...] number: 1 hydroCHLOROthiazide 50 mg oral tablet (12 sources) Thiazide Diuretic Start: 07-11-2022 take 1 tablet by mouth once daily Hydrochlorothiazide 50 mg Tablet Active 50 mg PO DAILY October 23, 2022 12:00am losartan potassium 100 mg oral tablet (2 sources) Angiotensin 2 Receptor Kp Start: 12-23-2022 losartan 100 mg oral tablet Dose : 100 mg = 1 tab(s), Oral, qDay, # 30 tab(s), 6 Refill(s), Pharmacy: [facility] #[id number], 175.3, cm, 12/23/22 6:37:00 EDT, Height, kg, 12/23/22 6:38:00 EDT, Dosing Weight Start Date: 12/23/22 Status: Ordered metFORMIN hydrochloride 500 mg oral tablet (13 sources) Biguanide Start: 01-31-2023 MetFORMIN (Eqv-Fortamet) 500 mg oral tablet, EXTENDED RELEASE Dose : 500 mg = 1 tab(s), Oral, qDay, # 90 tab(s), 3 Refill(s), Pharmacy: [facility] #[id number], 175.3, cm, 12/23/22 6:37:00 EDT, Height, kg, [...] day(s), # 30 EA, 5 Refill(s), [facility]: [facility] #[id number], 177, cm, 11/08/22 13:50:00 EDT, Height Start Date: 11/08/22 Stop Date: 05/07/23 Status: Ordered nystatin 882524 unt/ml topical cream (1 source) Polyene Antifungal Start: 01-12-2024 End: 02-01-2024 nystatin 100,000 units/g topical cream Apply 1 frida, Topical, BID, X 10 day(s), # 30 gram(s), 1 Refill(s), Pharmacy: [facility]/pharmacy #[id number], Cream, 177, cm, 01/12/24 9:42:00 EDT, Height, 148.6, kg, 01/12/24 9:42:00 EDT, Dosing Weight Start Date: 01/12/24 Stop Date: 02/01/24 Status: Ordered omeprazole 40 mg delayed release oral capsule (20 sources) Proton Pump Inhibitor Start: 10-23-2022 End: 05-14-2023 omeprazole 40 mg oral delayed release capsule Dose : 40 mg = 1 cap(s), Oral, qAM, 0 Refill(s) Start Date: 12/23/24 Status: Ordered Repeat number: 1 penicillin v potassium 500 mg oral tablet (1 source) Start: 05-14-2024 End: 05-24-2024 penicillin V potassium 500 mg oral tablet Dose : 500 mg = 1 tab(s), Oral, q8h, X 10 day(s), # 30 tab(s), 0 Refill(s), 05/24/24 2:36:00 PM EST, Pharmacy: [facility]/pharmacy #[id number], 175, cm, 05/14/24 13:59:00 EST, Height, 143.9, kg, 05/14/24 13:57:00 EST, Dosing Weight Start Date: 05/14/24 Stop Date: 05/24/24 Status: Ordered Quantity: 30.0 Unit: tab(s) Repeat number: 1 Piperacillin-Tazobacta m-Dextrs (Zosyn In Dextrose (Iso-Osm)) 2.25 gram/50 mL piggyback (2 sources) Start: 12-27-2024 Piperacillin-Tazob actam-Dextrs (Zosyn In Dextrose (Iso-Osm)) 2.25 gram/50 mL piggyback Active 2.25 g IV Q8H December 27, 2024 12:00am polyethylene glycol 3350 with electrolytes oral powder for reconstitution (2 sources) Start: 02-15-2023 polyethylene glycol 3350 with electrolytes oral powder for reconstitution See Instructions, As directed by provider at [facility] # 1 EA, 0 Refill(s), [facility][id number], Colon cancer screening, 175.9, cm, 02/15/23 13:56:00 [...] food, # 90 tab(s), 3 Refill(s), Pharmacy: [facility]/pharmacy #[id number], 177.8, cm, 10/02/24 6:28:00 EDT, Height, kg, 10/02/24 6:28:00 EDT, Dosing Weight Start Date: 10/04/24 Status: Ordered Quantity: 90.0 Unit: tab(s) Repeat number: 4 Start: 02-09-2024 Potassium Chlo ride (Eqv-K-Tab) 10 mEq oral tablet, extended release Dose : 10 mEq = 1 tab(s), Oral, qDay, # 30 tab(s), 3 Refill(s), Pharmacy: [facility]/pharmacy #[id number], 175, cm, 02/09/24 15:58:00 EDT, [...] Ordered pravastatin sodium 40 mg oral tablet (16 sources) HMG-CoA Reductase Inhibitor Start: 08-29-2024 take 1 tablet by mouth once daily Pravastatin 40 mg tablet Active 40 mg PO DAILY December 19, 2024 12:00am Start: 02-13-2024 pravastatin 40 mg oral tablet Dose : 40 mg = 1 tab(s), Oral, Daily, # 100 tab(s), 3 Refill(s), Pharmacy: [facility], 175, cm, 02/13/24 15:03:00 EDT, [...] Daily, # 100 tab(s), 3 Refill(s), Pharmacy: [facility], 177.8, cm, 11/28/23 13:54:00 EDT, [...] BID, # 180 tab(s), 3 Refill(s), Pharmacy: [facility], 177.8, cm, 11/28/23 13:54:00 EDT, Height, kg, 11/28/23 13:54:00 EDT, Dosing Weight Start Date: 12/12/23 Stop Date: 12/06/24 Status: Ordered Start: 03-22-2023 take 1 tablet by brandon twice daily sacubitril-valsartan 49 mg-51 mg oral tablet Dose = 1 tab(s), Oral, BID, # 60 tab(s), 3 Refill(s), [facility]: [facility] #[id number], 175.3, cm, 03/22/23 13:31:00 EDT, Height, kg, [...] qDay, # 90 tab(s), 3 Refill(s), Pharmacy: [facility], 177.8, cm, 11/28/23 13:54:00 EDT, Height, kg, 11/28/23 13:54:00 EDT, Dosing Weight Start Date: 12/12/23 Stop Date: 12/06/24 Status: Ordered Quantity: 90.0 Unit: tab(s) Repeat number: 4 Start: 02-07-2023 spironolactone 25 mg oral tablet Dose : 25 mg = 1 tab(s), Oral, qDay, # 60 tab(s), 5 Refill(s), Pharmacy: [facility] #[id number], 175.3, cm, 12/23/22 6:37:00 EDT, Height, kg, 12/23/22 6:38:00 EDT, Dosing Weight Start Date: 02/07/23 Status: Ordered Start: 11-24-2022 spironolactone 25 mg oral tablet Dose : 25 mg = 1 tab(s), Oral, qDay, # 60 tab(s), 0 Refill(s), [facility]: [facility] #[id number], 177, cm, 11/08/22 13:50:00 EDT, Height, kg, 11/08/22 13:50:00 EDT, Dosing Weight Start Date: 11/24/22 Status: Ordered Start: 11-04-2022 spironolactone 25 mg oral tablet Dose : 25 mg = 1 tab(s), Oral, BIDM, # 60 tab(s), 0 Refill(s), Pharmacy: [facility] #[id number], 175.3, cm, 11/04/22 8:52:00 EDT, Height Start Date: 11/04/22 Status: Ordered Symbicort 80 mcg-4.5 mcg/inh Inhaler (13 sources) Start: 07-29-2024 End: 07-24-2025 take 1 dose by inhalation twice daily Symbicort 80 mcg-4.5 mcg/inh Inhaler Dose = 2 puff(s), Inhalation, BID, # 30.6 gram(s), 3 Refill(s), Pharmacy: [facility], 182, cm, 06/12/24 13:53:00 EST, Height, kg, 06/12/24 13:53:00 EST, Dosing Weight Start Date: 07/29/24 Stop Date: 07/24/25 Status: Ordered Quantity: 30.6 Unit: g Repeat number: 4 Start: 04-08-2024 End: 08-06-2024 take 1 dose by inhalation twice daily Symbicort 80 mcg-4.5 mcg/inh Inhaler Dose = 2 puff(s), Inhalation, BID, # 10.2 gram(s), 3 Refill(s), Pharmacy: [facility], 175, cm, 04/01/24 13:03:00 EST, Height, kg, 04/01/24 13:03:00 EST, Dosing Weight Start Date: 04/08/24 Stop Date: 08/06/24 Status: Ordered Quantity: 10.2 Unit: g Repeat number: 4 Start: 12-12-2023 End: 04-10-2024 take 1 dose by inhalation twice daily Symbicort 80 mcg-4.5 mcg/inh Inhaler Dose = 2 puff(s), Inhalation, BID, # 10.2 gram(s), 3 Refill(s), Pharmacy: [facility], 177.8, cm, 11/28/23 13:54:00 EDT, Height, kg, 11/28/23 13:54:00 EDT, Dosing Weight Start Date: 12/12/23 Stop Date: 04/10/24 Status: Ordered timolol 2.5 mg/ml ophthalmic solution (15 sources) beta-Adrenergic Kp Start: 10-25-2022 take 1 dose into the eye(s) twice daily timolol maleate 0.25% ophthalmic solution Dose = 1 drop(s), Eyes, both, BID, # 5 mL, 0 Refill(s) Start Date: 10/25/22 Status: Ordered Start: 10-23-2022 End: 12-20-2024 Timolol Maleate 0.25 % Drops Discontinued 1 NMA EACH EYE DAILY October 23, 2022 12:00am December 20, 2024 4:16pm tiZANidine 2 mg oral tablet (20 sources) Central alpha-2 Adrenergic Agonist Start: 12-19-2024 [...] spasm, # 21 tab(s), 3 Refill(s), Pharmacy: [facility], 182, cm, 06/12/24 13:53:00 EST, Height, kg, 06/12/24 13:53:00 EST, Dosing Weight Start Date: 08/26/24 Stop Date: 09/23/24 Status: Ordered Quantity: 21.0 Unit: tab(s) Repeat number: 4 Start: 03-04-2024 tiZANidine 2 m g oral tablet Dose : 2 mg = 1 tab(s), Oral, q8h, PRN as needed for muscle spasm, # 90 tab(s), 2 Refill(s), Pharmacy: [facility], 175, cm, 02/13/24 15:03:00 EDT, Height, kg, 02/13/24 15:03:00 EDT, Dosing Weight Start Date: 03/04/24 Status: Ordered Quantity: 90.0 Unit: tab(s) Repeat number: 3 Start: 01-08-2024 tiZANidine 2 m g oral tablet Dose : 2 mg = 1 tab(s), Oral, q8h, PRN as needed for muscle spasm, # 90 tab(s), 2 Refill(s), Pharmacy: [facility], 177.8, cm, 11/28/23 13:54:00 EDT, [...] qHS, # 90 tab(s), 2 Refill(s), Pharmacy: [facility]/pharmacy #[id number], 175, cm, 09/05/24 16:01:00 EDT, Height, kg, 09/05/24 16:01:00 EDT, Dosing Weight Start Date: 09/19/24 Status: Ordered Quantity: 90.0 Unit: tab(s) Repeat number: 3 Start: 12-12-2023 traZODone 100 mg oral tablet Dose : 100 mg = 1 tab(s), Oral, qHS, # 90 tab(s), 3 Refill(s), Pharmacy: [facility], 177.8, cm, 11/28/23 13:54:00 EDT, Height, kg, 11/28/23 13:54:00 EDT, Dosing Weight Start Date: 12/12/23 Status: Ordered Quantity: 90.0 Unit: tab(s) Repeat number: 4 Start: 08-08-2023 traZODone 100 mg oral tablet Dose : 100 mg = 1 tab(s), Oral, qHS, # 90 tab(s), 3 Refill(s), [facility]: [facility] #[id number], 178.5, cm, 08/08/23 13:32:00 EDT, Height, kg, 08/08/23 13:32:00 EDT, Dosing Weight Start Date: 08/08/23 Status: Ordered Start: 12-13-2022 End: 04-12-2023 traZODone 100 mg oral tablet Dose : 100 mg = 1 tab(s), Oral, qHS, # 90 tab(s), 3 Refill(s), [facility]: [facility] #[id number], 175.3, cm, 12/23/22 6:37:00 EDT, Height, kg, 12/23/22 6:38:00 EDT, Dosing Weight Start Date: 01/31/23 Status: Ordered Start: 11-08-2022 End: 02-06-2023 traZODone 50 mg oral tablet Dose : 50 mg = 1 tab(s), Oral, qHS, # 30 tab(s), 2 Refill(s), [facility]: [facility] #[id number], 177, cm, 11/08/22 13:50:00 EDT, Height, kg, [...] day(s), # 30 gram(s), 0 Refill(s), Pharmacy: [facility] #[id number], Cream, 175.3, cm, 12/13/22 14:43:00 EDT, Height, [...] 4 EA, 3 Refill(s), generic OZEMPIC, Pharmacy: [facility] #[id number], 178.5, cm, 08/08/23 13:32:00 EDT, Height, kg, [...] 1 brimonidine tartrate 1 mg/ml ophthalmic solution (15 sources) alpha-Adrenergic Agonist Start: 10-25-2022 Alphagan P [...] 05/31/23 2:41:00 PM EST, [facility]acy: [facility] #[id number], 175.3, cm, 12/23/22 6:37:00 EDT, Height, kg, 12/23/22 6:38:00 EDT, Dosing Weight Start Date: 01/31/23 Stop Date: 05/31/23 Status: Ordered lisinopril 40 mg oral tablet (13 sources) Angiotensin Converting Enzyme Inhibitor Start: 07-11-2022 [...] chew, # 60 tab(s), 3 Refill(s), Pharmacy: [facility] #[id number], Shortness of breath, 175.3, cm, 03/22/23 13:31:00 EDT, Height, kg, 03/22/23 13:31:00 EDT, Dosing Weight Start Date: 03/22/23 Stop Date: 03/29/23 Status: Ordered Start: 12-23-2022 Toprol-XL 50 m g oral tablet, extended release Dose : 50 mg = 1 tab(s), Oral, BID, # 60 tab(s), 6 Refill(s), Pharmacy: [facility] #[id number], 175.3, cm, 12/23/22 6:37:00 EDT, Height, kg, [...] tablet Active 20 mg PO DAILY 30 0 October 23, 2022 12:00am must administer with evening meal traMADol hydrochloride 50 mg oral tablet (6 sources) Opioid Agonist Start: 12-19-2024 End: 12-27-2024 [...] asthma] 06-20-2023 Chronic Bacterial infection; unspecified site (12 sources) Bacteremia; Translations: [Bacteremia] Onset: 11-24-2024 Episodic Cardiac dysrhythmias (20 sources) Atrial fibrillation; Translations: [Unspecified atrial fibrillation] Onset: 10-16-2024 10-23-2022 Chronic Chronic obstructive pulmonary disease and bronchiectasis (14 [...] Infection and inflammatory reaction due to internal orthopedic fixation device; Translations: [Infection and inflammatory reaction due to internal fixation device of right tibia, initial encounter] Onset: 12-23-2024 Episodic Complications of surgical procedures [...] 08-08-2023 11-04-2022 Chronic Fever of unknown origin (5 sources) Fever; Translations: [Fever, unspecified] Onset: 01-03-2025 12-28-2024 Episodic Fluid and electrolyte disorders (10 sources) Acute hypokalemia; Translations: [Hypokalemia] Onset: 10-27-2022 10-23-2022 Episodic Fracture of lower limb (9 sources) Bimalleolar fracture of ankle ; Translations: [Displaced bimalleolar fracture of right lower leg, initial encounter for closed fracture] Onset: 08-29-2024 Episodic Hypertension with complications and secondary hypertension (6 sources) Hypertensive heart disease; Translations: [Hypertensive heart disease without heart failure] Onset: 11-24-2024 Chronic Infective arthritis and osteomyelitis (except that caused by tuberculosis or sexually transmitted disease) (2 sources) Osteomyelitis; Translations: [Osteomyelitis, unspecified] Onset: 12-23-2024 Chronic Mood disorders (11 sources) Depressive disorder; Translations: [Depression, unspecified] Onset: 11-25-2024 09-05-2024 Chronic Mood disorders (2 sources) Mood disorders; Translations: [Depression, unspecified] Onset: 11-24-2024 Nonspecific chest pain (20 sources) Chest pain; Translations: [Chest pain, unspecified] Onset: 10-27-2022 10-23-2022 Episodic Other aftercare (1 source) Drug monitoring done; Translations: [Encounter for therapeutic drug level monitoring] Episodic Other aftercare (6 sources) Long-term current use of anticoagulant; Translations: [exterminator termite (current) use of anticoagulants] Episodic Other aftercare (1 source) Procedure carried out on subject; Translations: [Encounter for other specified aftercare] Onset: 12-04-2024 Episodic Other aftercare (1 source) Encounter for other specified aftercare; Translations: [Encounter for other specified aftercare] Onset: 12-04-2024 Episodic Other aftercare (2 sources) snf (current) use of anticoagulants; Translations: [snf (current) use of anticoagulants] Onset: 10-16-2024 Episodic Other aftercare (1 source) Encounter for surgical aftercare following surgery on the skin and subcutaneous tissue; Translations: [Encounter for surgical aftercare following surgery on the skin and subcutaneous tissue] Onset: 11-14-2024 Episodic Other and ill-defined heart disease (8 sources) Left ventricular hypertrophy 06-12-2024 Chronic Other circulatory disease (8 sources) H/O: hypertension; Translations: [Personal history of [...] Onset: 08-09-2023 Episodic Other connective tissue disease (9 sources) Swelling of hand; Translations: [Other specified soft tissue disorders] 12-20-2024 Episodic Other connective tissue disease (2 sources) Other specified soft tissue disorders; Translations: [Other specified soft tissue disorders] Onset: 12-21-2024 Episodic Other injuries and conditions due to external causes (5 sources) H/O: fracture; Translations: [Personal history of (healed) traumatic fracture] Onset: 12-26-2024 Episodic Other injuries and conditions due to external causes (2 sources) Personal history of (healed) traumatic fracture; Translations: [Personal history of (healed) traumatic fracture] Onset: 12-23-2024 Episodic Other lower respiratory disease (14 sources) Dyspnea; Translations: [Shortness of breath] Onset: 06-07-2023 Episodic Other lower respiratory disease (9 sources) Wheezing 08-08-2023 Episodic Other lower respiratory disease (8 sources) Cough 08-27-2024 Episodic Other lower respiratory disease (3 sources) Shortness of breath; Translations: [Shortness of breath] Onset: 11-24-2024 Episodic Other lower respiratory disease (6 sources) Hypoxia; Translations: [Hypoxemia] 12-20-2024 Episodic Other nervous system disorders (2 sources) Postoperative pain ; Translations: [Other acute postprocedural pain] Onset: 10-17-2024 Episodic Other nervous system disorders (1 source) Other acute postprocedural pain; Translations: [Other acute postprocedural pain] Onset: 12-23-2024 Episodic Other non-traumatic joint disorders (20 sources) [...] Chronic Other nutritional; endocrine; and metabolic disorders (4 sources) Morbid (severe) obesity due to excess calories; Translations: [Morbid (severe) obesity due to excess calories] Onset: 12-10-2024 Chronic Other nutritional; endocrine; and metabolic disorders (2 sources) Body mass index (BMI) 45.0-49.9, adult; Translations: [Body mass index [BMI] 45.0-49.9, adult] Onset: 12-23-2024 Chronic Other nutritional; endocrine; and metabolic disorders (1 source) Hypomagnesemia; Translations: [Hypomagnesemia] Onset: 11-24-2024 Chronic Other nutritional; endocrine; and metabolic disorders (1 source) Body mass index (BMI) 40.0-44.9, adult; Translations: [Body mass index [BMI] 40.0-44.9, adult] Onset: 10-16-2024 Chronic Other nutritional; endocrine; and metabolic disorders (8 sources) History of diabetes mellitus type 2; Translations: [Personal history of other endocrine, nutritional and metabolic disease] 10-23-2022 Episodic Other nutritional; endocrine; and metabolic disorders (1 source) H/O: Disorder; Translations: [Personal history of other endocrine, nutritional and metabolic disease] Episodic Other skin disorders (2 sources) Mass of upper limb 02-13-2024 Episodic Other skin disorders (10 sources) Localized swelling of right hand; Translations: [Localized swelling, mass and lump, right upper limb] 12-20-2024 Episodic Other skin disorders (1 source) Localized swelling, mass and lump, right upper limb; Translations: [Localized swelling, mass and lump, right upper limb] Onset: 01-08-2025 Episodic Other upper respiratory infections (2 sources) [...] (adult) (pediatric)] 12-13-2022 Chronic Residual codes; unclassified (2 sources) Obstructive sleep apnea (adult) (pediatric); Translations: [Obstructive sleep apnea (adult) (pediatric)] Onset: 11-24-2024 Chronic Residual codes; unclassified (20 sources) Insomnia 11-08-2022 Episodic Respiratory failure; insufficiency; arrest (adult) (4 sources) Acute respiratory failure; Translations: [Acute respiratory failure with hypoxia] Onset: 11-24-2024 Episodic Shock (1 source) Shock; Translations: [Other shock] Episodic Skin and subcutaneous tissue infections (2 sources) Cellulitis of lower limb; Translations: [Cellulitis of right lower limb] Onset: 12-23-2024 Episodic Sprains and [...] Other Problems Problem Classification Problem Date Documented Date Episodic/Chronic Cardiac dysrhythmias (13 sources) Tachyarrhythmia ; Translations: [Tachycardia, unspecified] Onset: 10-02-2024 Episodic Other connective tissue disease (1 source) [...] Range Facility Basic Metabolic Profile (BMP )on 01-05-2025 BUN Normal 4-19 [facility] Comment on above: Result Comment: Canc elled via OM: Order cancelled - Patient discharged Performed By: #### L 100.0100, L500.2500 ####[facility] [address] [facility] [address] BUN/CRE Normal 10-20 [facility] Comment on above: Result Comment: Canc elled via OM: Order cancelled - Patient discharged Performed By: #### L 100.0100, L500.2500 ####[facility] [address] [facility] [address] Calcium Normal 7.6-11.0 [facility] Comment on above: Result Comment: Canc elled via OM: Order cancelled - Patient discharged Performed By: #### L 100.0100, L500.2500 ####[facility] [address] [place], [address] CL Normal 98-108 [facility] Comment on above: Result Comment: Canc elled via OM: Order cancelled - Patient discharged Performed By: #### L 100.0100, L500.2500 ####[facility] [address] [facility] [address] CO2 Normal 21.0-32.0 [facility] Comment on above: Result Comment: Canc elled via OM: Order cancelled - Patient discharged Performed By: #### L 100.0100, L500.2500 ####[facility] [address] [facility] [address] CREAT,SERUM Normal 0.70-1.20 [facility] Comment on above: Result Comment: Canc elled via OM: Order cancelled - Patient discharged Performed By: #### L 100.0100, L500.2500 ####[facility] [address] [place], [address] eGFR Normal >60 [facility] Comment on above: Result Comment: Canc elled via OM: Order cancelled - Patient discharged Performed By: #### L 100.0100, L500.2500 ####[facility] [address] [place], [address] GAP Normal 5-15 [facility] Comment on above: Result Comment: Canc elled via OM: Order cancelled - Patient discharged Performed By: #### L 100.0100, L500.2500 ####[facility] [address] [place], [address] GLU Normal 70-99 [facility] Comment on above: Result Comment: Canc elled via OM: Order cancelled - Patient discharged Performed By: #### L 100.0100, L500.2500 ####[facility] [address] [place], [address] Potassium Normal 3.3-5.1 [facility] Comment on above: Result Comment: Canc elled via OM: Order cancelled - Patient discharged Performed By: #### L 100.0100, L500.2500 ####[facility] [address] [place], [address] Basic Metabolic Profile (BMP) Normal 133-145 [facility] Comment on above: Result Comment: Canc elled via OM: Order cancelled - Patient discharged Performed By: #### L 100.0100, L500.2500 ####[facility] [address] [place], [address] CBC W/Diff, Automatedon - Absolute Neut Normal 2.0-7.7 [facility] Comment on above: Result Comment: Canc elled via OM: Order cancelled - Patient discharged Performed By: #### L 100.0100, L500.2500 ####[facility] [address] [place], [address] HCT Normal 40-54 [facility] Comment on above: Result Comment: Canc elled via OM: Order cancelled - Patient discharged Performed By: #### L 100.0100, L500.2500 ####[facility] [address] [place], [address] HGB Normal 13.0-16.5 [facility] Comment on above: Result Comment: Canc elled via OM: Order cancelled - Patient discharged Performed By: #### L 100.0100, L500.2500 ####[facility] [address] [place], [address] MCH Normal 27.0-32.0 [facility] Comment on above: Result Comment: Canc elled via OM: Order cancelled - Patient discharged Performed By: #### L 100.0100, L500.2500 ####[facility] [address] [place], [address] MCHC Normal 32-36 [facility] Comment on above: Result Comment: Canc elled via OM: Order cancelled - Patient discharged Performed By: #### L 100.0100, L500.2500 ####[facility] [address] [place], [address] MCV Normal 80-94 [facility] Comment on above: Result Comment: Canc elled via OM: Order cancelled - Patient discharged Performed By: #### L 100.0100, L500.2500 ####[facility] [address] [place], [address] NEUT% Normal 47-70 [facility] Comment on above: Result Comment: Canc elled via OM: Order cancelled - Patient discharged Performed By: #### L 100.0100, L500.2500 ####[facility] [address] [place], [address] PLT Normal 150-450 [facility] Comment on above: Result Comment: Canc elled via OM: Order cancelled - Patient discharged Performed By: #### L 100.0100, L500.2500 ####[facility] [address] [place], [address] RBC Normal 4.6-6.2 [facility] Comment on above: Result Comment: Canc elled via OM: Order cancelled - Patient discharged Performed By: #### L 100.0100, L500.2500 ####[facility] [address] [place], [address] RDW CV Normal 11.6-14.6 [facility] Comment on above: Result Comment: Canc elled via OM: Order cancelled - Patient discharged Performed By: #### L 100.0100, L500.2500 ####[facility] [address] [place], [address] RDW SD Normal 35.1-43.9 [facility] Comment on above: Result Comment: Canc elled via OM: Order cancelled - Patient discharged Performed By: #### L 100.0100, L500.2500 ####[facility] [address] [place], [address] WBC Normal 4.4-11.0 [facility] Comment on above: Result Comment: Canc elled via OM: Order cancelled - Patient discharged Performed By: #### L 100.0100, L500.2500 ####[facility] [address] [place], [address] Basic Metabolic Profile (BMP )on 01-04-2025 BUN Normal 4-19 [facility] Comment on above: Result Comment: Canc elled via OM: Order cancelled - Patient discharged Performed By: #### L 100.0100, L500.2500 ####[facility] [address] [place], [address] BUN/CRE Normal 10-20 [facility] Comment on above: Result Comment: Canc elled via OM: Order cancelled - Patient discharged Performed By: #### L 100.0100, L500.2500 ####[facility] [address] [place], [address] Calcium Normal 7.6-11.0 [facility] Comment on above: Result Comment: Canc elled via OM: Order cancelled - Patient discharged Performed By: #### L 100.0100, L500.2500 ####[facility] [address] [place], [address] CL Normal 98-108 [facility] Comment on above: Result Comment: Canc elled via OM: Order cancelled - Patient discharged Performed By: #### L 100.0100, L500.2500 ####[facility] [address] [place], [address] CO2 Normal 21.0-32.0 [facility] Comment on above: Result Comment: Canc elled via OM: Order cancelled - Patient discharged Performed By: #### L 100.0100, L500.2500 ####[facility] [address] [place], [address] CREAT,SERUM Normal 0.70-1.20 [facility] Comment on above: Result Comment: Canc elled via OM: Order cancelled - Patient discharged Performed By: #### L 100.0100, L500.2500 ####[facility] [address] [place], [address] eGFR Normal >60 [facility] Comment on above: Result Comment: Canc elled via OM: Order cancelled - Patient discharged Performed By: #### L 100.0100, L500.2500 ####[facility] [address] [place], [address] GAP Normal 5-15 [facility] Comment on above: Result Comment: Canc elled via OM: Order cancelled - Patient discharged Performed By: #### L 100.0100, L500.2500 ####[facility] [address] [place], [address] GLU Normal 70-99 [facility] [facility] Comment on above: Result Comment: Canc elled via OM: Order cancelled - Patient discharged Performed By: #### L 100.0100, L500.2500 ####[facility] [address] [place], [address] Potassium Normal 3.3-5.1 [facility] Comment on above: Result Comment: Canc elled via OM: Order cancelled - Patient discharged Performed By: #### L 100.0100, L500.2500 ####[facility] [address] [place], [address] Basic Metabolic Profile (BMP) Normal 133-145 [facility] Comment on above: Result Comment: Canc elled via OM: Order cancelled - Patient discharged Performed By: #### L 100.0100, L500.2500 ####[facility] [address] [place], [address] CBC W/Diff, Automatedon 08-0 9-2024 Absolute Neut Normal 2.0-7.7 [facility] Comment on above: Result Comment: Canc elled via OM: Order cancelled - Patient discharged Performed By: #### L 100.0100, L500.2500 ####[facility] [address] [place], [address] HCT Normal 40-54 [facility] Comment on above: Result Comment: Canc elled via OM: Order cancelled - Patient discharged Performed By: #### L 100.0100, L500.2500 ####[facility] [address] [place], [address] HGB Normal 13.0-16.5 [facility] Comment on above: Result Comment: Canc elled via OM: Order cancelled - Patient discharged Performed By: #### L 100.0100, L500.2500 ####[facility] [address] [place], [address] MCH Normal 27.0-32.0 [facility] Comment on above: Result Comment: Canc elled via OM: Order cancelled - Patient discharged Performed By: #### L 100.0100, L500.2500 ####[facility] [address] [place], [address] MCHC Normal 32-36 [facility] Comment on above: Result Comment: Canc elled via OM: Order cancelled - Patient discharged Performed By: #### L 100.0100, L500.2500 ####[facility] [address] [place], [address] MCV Normal 80-94 [facility] Comment on above: Result Comment: Canc elled via OM: Order cancelled - Patient discharged Performed By: #### L 100.0100, L500.2500 ####[facility] [address] [place], [address] NEUT% Normal 47-70 [facility] Comment on above: Result Comment: Canc elled via OM: Order cancelled - Patient discharged Performed By: #### L 100.0100, L500.2500 ####[facility] [address] [place], [address] PLT Normal 150-450 [facility] Comment on above: Result Comment: Canc elled via OM: Order cancelled - Patient discharged Performed By: #### L 100.0100, L500.2500 ####[facility] [address] [place], [address] RBC Normal 4.6-6.2 [facility] Comment on above: Result Comment: Canc elled via OM: Order cancelled - Patient discharged Performed By: #### L 100.0100, L500.2500 ####[facility] [address] [place], [address] RDW CV Normal 11.6-14.6 [facility] Comment on above: Result Comment: Canc elled via OM: Order cancelled - Patient discharged Performed By: #### L 100.0100, L500.2500 ####[facility] [address] [place], [address] RDW SD Normal 35.1-43.9 [facility] Comment on above: Result Comment: Canc elled via OM: Order cancelled - Patient discharged Performed By: #### L 100.0100, L500.2500 ####[facility] [address] [place], [address] WBC Normal 4.4-11.0 [facility] Comment on above: Result Comment: Canc elled via OM: Order cancelled - Patient discharged Performed By: #### L 100.0100, L500.2500 ####[facility] [address] [place], [address] Basic Metabolic Profile (BMP )on 01-03-2025 BUN Normal 4-19 [facility] Comment on above: Result Comment: Canc elled via OM: Order cancelled - Patient discharged Performed By: #### L 500.2500, L100.0100 ####[facility] [address] [place], [address] BUN/CRE Normal 10-20 [facility] Comment on above: Result Comment: Canc elled via OM: Order cancelled - Patient discharged Performed By: #### L 500.2500, L100.0100 ####[facility] [address] [place], [address] Calcium Normal 7.6-11.0 [facility] Comment on above: Result Comment: Canc elled via OM: Order cancelled - Patient discharged Performed By: #### L 500.2500, L100.0100 ####[facility] [address] [place], [address] CL Normal 98-108 [facility] Comment on above: Result Comment: Canc elled via OM: Order cancelled - Patient discharged Performed By: #### L 500.2500, L100.0100 ####[facility] [address] [place], [address] CO2 Normal 21.0-32.0 [facility] Comment on above: Result Comment: Canc elled via OM: Order cancelled - Patient discharged Performed By: #### L 500.2500, L100.0100 ####[facility] [address] [place], [address] CREAT,SERUM Normal 0.70-1.20 [facility] Comment on above: Result Comment: Canc elled via OM: Order cancelled - Patient discharged Performed By: #### L 500.2500, L100.0100 ####[facility] [address] [place], [address] eGFR Normal >60 [facility] Comment on above: Result Comment: Canc elled via OM: Order cancelled - Patient discharged Performed By: #### L 500.2500, L100.0100 ####[facility] [address] [place], [address] GAP Normal 5-15 [facility] Comment on above: Result Comment: Canc elled via OM: Order cancelled - Patient discharged Performed By: #### L 500.2500, L100.0100 ####[facility] [address] [place], [address] GLU Normal 70-99 [facility] Comment on above: Result Comment: Canc elled via OM: Order cancelled - Patient discharged Performed By: #### L 500.2500, L100.0100 ####[facility] [address] [place], [address] Potassium Normal 3.3-5.1 [facility] Comment on above: Result Comment: Canc elled via OM: Order cancelled - Patient discharged Performed By: #### L 500.2500, L100.0100 ####[facility] [address] [place], [address] Basic Metabolic Profile (BMP) Normal 133-145 [facility] Comment on above: Result Comment: Canc elled via OM: Order cancelled - Patient discharged Performed By: #### L 500.2500, L100.0100 ####[facility] [address] [place], [address] CBC W/Diff, Automatedon 08-0 8-2024 Absolute Neut Normal 2.0-7.7 [facility] Comment on above: Result Comment: Canc elled via OM: Order cancelled - Patient discharged Performed By: #### L 500.2500, L100.0100 ####[facility] [address] [place], [address] HCT Normal 40-54 [facility] Comment on above: Result Comment: Canc elled via OM: Order cancelled - Patient discharged Performed By: #### L 500.2500, L100.0100 ####[facility] [address] [place], [address] HGB Normal 13.0-16.5 [facility] Comment on above: Result Comment: Canc elled via OM: Order cancelled - Patient discharged Performed By: #### L 500.2500, L100.0100 ####[facility] [address] [place], [address] MCH Normal 27.0-32.0 [facility] Comment on above: Result Comment: Canc elled via OM: Order cancelled - Patient discharged Performed By: #### L 500.2500, L100.0100 ####[facility] [address] [place], [address] MCHC Normal 32-36 [facility] Comment on above: Result Comment: Canc elled via OM: Order cancelled - Patient discharged Performed By: #### L 500.2500, L100.0100 ####[facility] [address] [place], [address] MCV Normal 80-94 [facility] Comment on above: Result Comment: Canc elled via OM: Order cancelled - Patient discharged Performed By: #### L 500.2500, L100.0100 ####[facility] [address] [place], [address] NEUT% Normal 47-70 [facility] Comment on above: Result Comment: Canc elled via OM: Order cancelled - Patient discharged Performed By: #### L 500.2500, L100.0100 ####[facility] [address] [place], [address] PLT Normal 150-450 [facility] Comment on above: Result Comment: Canc elled via OM: Order cancelled - Patient discharged Performed By: #### L 500.2500, L100.0100 ####[facility] [address] [place], [address] RBC Normal 4.6-6.2 [facility] Comment on above: Result Comment: Canc elled via OM: Order cancelled - Patient discharged Performed By: #### L 500.2500, L100.0100 ####[facility] [address] [place], [address] RDW CV Normal 11.6-14.6 [facility] Comment on above: Result Comment: Canc elled via OM: Order cancelled - Patient discharged Performed By: #### L 500.2500, L100.0100 ####[facility] [address] [place], [address] RDW SD Normal 35.1-43.9 [facility] Comment on above: Result Comment: Canc elled via OM: Order cancelled - Patient discharged Performed By: #### L 500.2500, L100.0100 ####[facility] [address] [place], [address] WBC Normal 4.4-11.0 [facility] Comment on above: Result Comment: Canc elled via OM: Order cancelled - Patient discharged Performed By: #### L 500.2500, L100.0100 ####[facility] [address] [place], [address] Basic Metabolic Profile (BMP )on 01-02-2025 BUN Normal 4-19 [facility] Comment on above: Result Comment: Canc elled via OM: Order cancelled - Patient discharged Performed By: #### L 500.2500, L100.0100 ####[facility] [address] [place], [address] BUN/CRE Normal 10-20 [facility] Comment on above: Result Comment: Canc elled via OM: Order cancelled - Patient discharged Performed By: #### L 500.2500, L100.0100 ####[facility] [address] [place], [address] Calcium Normal 7.6-11.0 [facility] Comment on above: Result Comment: Canc elled via OM: Order cancelled - Patient discharged Performed By: #### L 500.2500, L100.0100 ####[facility] [address] [place], [address] CL Normal 98-108 [facility] Comment on above: Result Comment: Canc elled via OM: Order cancelled - Patient discharged Performed By: #### L 500.2500, L100.0100 ####[facility] [address] [place], [address] CO2 Normal 21.0-32.0 [facility] Comment on above: Result Comment: Canc elled via OM: Order cancelled - Patient discharged Performed By: #### L 500.2500, L100.0100 ####[facility] [address] [place], [address] CREAT,SERUM Normal 0.70-1.20 [facility] Comment on above: Result Comment: Canc elled via OM: Order cancelled - Patient discharged Performed By: #### L 500.2500, L100.0100 ####[facility] [address] [place], [address] eGFR Normal >60 [facility] Comment on above: Result Comment: Canc elled via OM: Order cancelled - Patient discharged Performed By: #### L 500.2500, L100.0100 ####[facility] [address] [place], [address] GAP Normal 5-15 [facility] Comment on above: Result Comment: Canc elled via OM: Order cancelled - Patient discharged Performed By: #### L 500.2500, L100.0100 ####[facility] [address] [place], [address] GLU Normal 70-99 [facility] Comment on above: Result Comment: Canc elled via OM: Order cancelled - Patient discharged Performed By: #### L 500.2500, L100.0100 ####[facility] [address] [place], [address] Potassium Normal 3.3-5.1 [facility] Comment on above: Result Comment: Canc elled via OM: Order cancelled - Patient discharged Performed By: #### L 500.2500, L100.0100 ####[facility] [address] [place], [address] Basic Metabolic Profile (BMP) Normal 133-145 [facility] Comment on above: Result Comment: Canc elled via OM: Order cancelled - Patient discharged Performed By: #### L 500.2500, L100.0100 ####[facility] [address] [place], [address] CBC W/Diff, Automatedon 08-0 Absolute Neut Normal 2.0-7.7 [facility] Comment on above: Result Comment: Canc elled via OM: Order cancelled - Patient discharged Performed By: #### L 500.2500, L100.0100 ####[facility] [address] [place], [address] HCT Normal 40-54 [facility] Comment on above: Result Comment: Canc elled via OM: Order cancelled - Patient discharged Performed By: #### L 500.2500, L100.0100 ####[facility] [address] [place], [address] HGB Normal 13.0-16.5 [facility] Comment on above: Result Comment: Canc elled via OM: Order cancelled - Patient discharged Performed By: #### L 500.2500, L100.0100 ####[facility] [address] [place], [address] MCH Normal 27.0-32.0 [facility] Comment on above: Result Comment: Canc elled via OM: Order cancelled - Patient discharged Performed By: #### L 500.2500, L100.0100 ####[facility] [address] [place], [address] MCHC Normal 32-36 [facility] Comment on above: Result Comment: Canc elled via OM: Order cancelled - Patient discharged Performed By: #### L 500.2500, L100.0100 ####[facility] [address] [place], [address] MCV Normal 80-94 [facility] Comment on above: Result Comment: Canc elled via OM: Order cancelled - Patient discharged Performed By: #### L 500.2500, L100.0100 ####[facility] [address] [place], [address] NEUT% Normal 47-70 [facility] Comment on above: Result Comment: Canc elled via OM: Order cancelled - Patient discharged Performed By: #### L 500.2500, L100.0100 ####[facility] [address] [place], [address] PLT Normal 150-450 [facility] Comment on above: Result Comment: Canc elled via OM: Order cancelled - Patient discharged Performed By: #### L 500.2500, L100.0100 ####[facility] [address] [place], [address] RBC Normal 4.6-6.2 [facility] Comment on above: Result Comment: Canc elled via OM: Order cancelled - Patient discharged Performed By: #### L 500.2500, L100.0100 ####[facility] [address] [place], [address] RDW CV Normal 11.6-14.6 [facility] Comment on above: Result Comment: Canc elled via OM: Order cancelled - Patient discharged Performed By: #### L 500.2500, L100.0100 ####[facility] [address] [place], [address] RDW SD Normal 35.1-43.9 [facility] Comment on above: Result Comment: Canc elled via OM: Order cancelled - Patient discharged Performed By: #### L 500.2500, L100.0100 ####[facility] [address] [place], [address] WBC Normal 4.4-11.0 [facility] Comment on above: Result Comment: Canc elled via OM: Order cancelled - Patient discharged Performed By: #### L 500.2500, L100.0100 ####[facility] [address] [place], [address] Basic Metabolic Profile (BMP )on 01-01-2025 BUN Normal 4-19 [facility] Comment on above: Result Comment: Canc elled via OM: Order cancelled - Patient discharged Performed By: #### L 500.2500, L100.0100 ####[facility] [address] [place], [address] BUN/CRE Normal 10-20 [facility] Comment on above: Result Comment: Canc elled via OM: Order cancelled - Patient discharged Performed By: #### L 500.2500, L100.0100 ####[facility] [address] [place], [address] Calcium Normal 7.6-11.0 [facility] Comment on above: Result Comment: Canc elled via OM: Order cancelled - Patient discharged Performed By: #### L 500.2500, L100.0100 ####[facility] [address] [place], [address] CL Normal 98-108 [facility] Comment on above: Result Comment: Canc elled via OM: Order cancelled - Patient discharged Performed By: #### L 500.2500, L100.0100 ####[facility] [address] [place], [address] CO2 Normal 21.0-32.0 [facility] Comment on above: Result Comment: Canc elled via OM: Order cancelled - Patient discharged Performed By: #### L 500.2500, L100.0100 ####[facility] [address] [place], [address] CREAT,SERUM Normal 0.70-1.20 [facility] Comment on above: Result Comment: Canc elled via OM: Order cancelled - Patient discharged Performed By: #### L 500.2500, L100.0100 ####[facility] [address] [place], [address] eGFR Normal >60 [facility] Comment on above: Result Comment: Canc elled via OM: Order cancelled - Patient discharged Performed By: #### L 500.2500, L100.0100 ####[facility] [facility] [address] [place], [address] GAP Normal 5-15 [facility] Comment on above: Result Comment: Canc elled via OM: Order cancelled - Patient discharged Performed By: #### L 500.2500, L100.0100 ####[facility] [address] [place], [address] GLU Normal 70-99 [facility] Comment on above: Result Comment: Canc elled via OM: Order cancelled - Patient discharged Performed By: #### L 500.2500, L100.0100 ####[facility] [address] [place], [address] Potassium Normal 3.3-5.1 [facility] Comment on above: Result Comment: Canc elled via OM: Order cancelled - Patient discharged Performed By: #### L 500.2500, L100.0100 ####[facility] [address] [place], [address] Basic Metabolic Profile (BMP) Normal 133-145 [facility] Comment on above: Result Comment: Canc elled via OM: Order cancelled - Patient discharged Performed By: #### L 500.2500, L100.0100 ####[facility] [address] [place], [address] CBC W/Diff, Automatedon 08-0 Absolute Neut Normal 2.0-7.7 [facility] Comment on above: Result Comment: Canc elled via OM: Order cancelled - Patient discharged Performed By: #### L 500.2500, L100.0100 ####[facility] [address] [place], [address] HCT Normal 40-54 [facility] Comment on above: Result Comment: Canc elled via OM: Order cancelled - Patient discharged Performed By: #### L 500.2500, L100.0100 ####[facility] [address] [place], [address] HGB Normal 13.0-16.5 [facility] Comment on above: Result Comment: Canc elled via OM: Order cancelled - Patient discharged Performed By: #### L 500.2500, L100.0100 ####[facility] [address] [place], [address] MCH Normal 27.0-32.0 [facility] Comment on above: Result Comment: Canc elled via OM: Order cancelled - Patient discharged Performed By: #### L 500.2500, L100.0100 ####[facility] [address] [place], [address] MCHC Normal 32-36 [facility] Comment on above: Result Comment: Canc elled via OM: Order cancelled - Patient discharged Performed By: #### L 500.2500, L100.0100 ####[facility] [address] [place], [address] MCV Normal 80-94 [facility] Comment on above: Result Comment: Canc elled via OM: Order cancelled - Patient discharged Performed By: #### L 500.2500, L100.0100 ####[facility] [address] [place], [address] NEUT% Normal 47-70 [facility] Comment on above: Result Comment: Canc elled via OM: Order cancelled - Patient discharged Performed By: #### L 500.2500, L100.0100 ####[facility] [facility] [address] [place], [address] PLT Normal 150-450 [facility] Comment on above: Result Comment: Canc elled via OM: Order cancelled - Patient discharged Performed By: #### L 500.2500, L100.0100 ####[facility] [address] [place], [address] RBC Normal 4.6-6.2 [facility] Comment on above: Result Comment: Canc elled via OM: Order cancelled - Patient discharged Performed By: #### L 500.2500, L100.0100 ####[facility] [address] [place], [address] RDW CV Normal 11.6-14.6 [facility] Comment on above: Result Comment: Canc elled via OM: Order cancelled - Patient discharged Performed By: #### L 500.2500, L100.0100 ####[facility] [address] [place], [address] RDW SD Normal 35.1-43.9 [facility] Comment on above: Result Comment: Canc elled via OM: Order cancelled - Patient discharged Performed By: #### L 500.2500, L100.0100 ####[facility] [address] [place], [address] WBC Normal 4.4-11.0 [facility] Comment on above: Result Comment: Canc elled via OM: Order cancelled - Patient discharged Performed By: #### L 500.2500, L100.0100 ####[facility] [address] [place], [address] Basic Metabolic Profile (BMP )on 12-31-2024 BUN Normal 4-19 [facility] Comment on above: Result Comment: Canc elled via OM: Order cancelled - Patient discharged Performed By: #### L 100.0100, L500.2500 ####[facility] [address] [place], [address] BUN/CRE Normal 10-20 [facility] Comment on above: Result Comment: Canc elled via OM: Order cancelled - Patient discharged Performed By: #### L 100.0100, L500.2500 ####[facility] [address] [place], [address] Calcium Normal 7.6-11.0 [facility] Comment on above: Result Comment: Canc elled via OM: Order cancelled - Patient discharged Performed By: #### L 100.0100, L500.2500 ####[facility] [address] [place], [address] CL Normal 98-108 [facility] Comment on above: Result Comment: Canc elled via OM: Order cancelled - Patient discharged Performed By: #### L 100.0100, L500.2500 ####[facility] [address] [place], [address] CO2 Normal 21.0-32.0 [facility] Comment on above: Result Comment: Canc elled via OM: Order cancelled - Patient discharged Performed By: #### L 100.0100, L500.2500 ####[facility] [address] [place], [address] CREAT,SERUM Normal 0.70-1.20 [facility] Comment on above: Result Comment: Canc elled via OM: Order cancelled - Patient discharged Performed By: #### L 100.0100, L500.2500 ####[facility] [address] [place], [address] eGFR Normal >60 [facility] Comment on above: Result Comment: Canc elled via OM: Order cancelled - Patient discharged Performed By: #### L 100.0100, L500.2500 ####[facility] [address] [place], [address] GAP Normal 5-15 [facility] Comment on above: Result Comment: Canc elled via OM: Order cancelled - Patient discharged Performed By: #### L 100.0100, L500.2500 ####[facility] [address] [place], [address] GLU Normal 70-99 [facility] Comment on above: Result Comment: Canc elled via OM: Order cancelled - Patient discharged Performed By: #### L 100.0100, L500.2500 ####[facility] [address] [place], [address] Potassium Normal 3.3-5.1 [facility] Comment on above: Result Comment: Canc elled via OM: Order cancelled - Patient discharged Performed By: #### L 100.0100, L500.2500 ####[facility] [address] [place], [address] Basic Metabolic Profile (BMP) Normal 133-145 [facility] Comment on above: Result Comment: Canc elled via OM: Order cancelled - Patient discharged Performed By: #### L 100.0100, L500.2500 ####[facility] [address] [place], [address] CBC W/Diff, Automatedon 08-0 -2024 Absolute Neut Normal 2.0-7.7 [facility] Comment on above: Result Comment: Canc elled via OM: Order cancelled - Patient discharged Performed By: #### L 100.0100, L500.2500 ####[facility] [address] [place], [address] HCT Normal 40-54 [facility] Comment on above: Result Comment: Canc elled via OM: Order cancelled - Patient discharged Performed By: #### L 100.0100, L500.2500 ####[facility] [address] [place], [address] HGB Normal 13.0-16.5 [facility] Comment on above: Result Comment: Canc elled via OM: Order cancelled - Patient discharged Performed By: #### L 100.0100, L500.2500 ####[facility] [address] [place], [address] MCH Normal 27.0-32.0 [facility] Comment on above: Result Comment: Canc elled via OM: Order cancelled - Patient discharged Performed By: #### L 100.0100, L500.2500 ####[facility] [address] [place], [address] MCHC Normal 32-36 [facility] Comment on above: Result Comment: Canc elled via OM: Order cancelled - Patient discharged Performed By: #### L 100.0100, L500.2500 ####[facility] [address] [place], [address] MCV Normal 80-94 [facility] Comment on above: Result Comment: Canc elled via OM: Order cancelled - Patient discharged Performed By: #### L 100.0100, L500.2500 ####[facility] [address] [place], [address] NEUT% Normal 47-70 [facility] Comment on above: Result Comment: Canc elled via OM: Order cancelled - Patient discharged Performed By: #### L 100.0100, L500.2500 ####[facility] [address] [place], [address] PLT Normal 150-450 [facility] Comment on above: Result Comment: Canc elled via OM: Order cancelled - Patient discharged Performed By: #### L 100.0100, L500.2500 ####[facility] [address] [place], [address] RBC Normal 4.6-6.2 [facility] Comment on above: Result Comment: Canc elled via OM: Order cancelled - Patient discharged Performed By: #### L 100.0100, L500.2500 ####[facility] [address] [place], [address] RDW CV Normal 11.6-14.6 [facility] Comment on above: Result Comment: Canc elled via OM: Order cancelled - Patient discharged Performed By: #### L 100.0100, L500.2500 ####[facility] [address] [place], [address] RDW SD Normal 35.1-43.9 [facility] Comment on above: Result Comment: Canc elled via OM: Order cancelled - Patient discharged Performed By: #### L 100.0100, L500.2500 ####[facility] [address] [place], [address] WBC Normal 4.4-11.0 [facility] Comment on above: Result Comment: Canc elled via OM: Order cancelled - Patient discharged Performed By: #### L 100.0100, L500.2500 ####[facility] [address] [place], [address] Basic Metabolic Profile (BMP )on 12-30-2024 BUN Normal 4-19 [facility] Comment on above: Result Comment: Canc elled via OM: Order cancelled - Patient discharged Performed By: #### L 100.0100, L500.2500 ####[facility] [address] [place], [address] BUN/CRE Normal 10-20 [facility] Comment on above: Result Comment: Canc elled via OM: Order cancelled - Patient discharged Performed By: #### L 100.0100, L500.2500 ####[facility] [address] [place], [address] Calcium Normal 7.6-11.0 [facility] Comment on above: Result Comment: Canc elled via OM: Order cancelled - Patient discharged Performed By: #### L 100.0100, L500.2500 ####[facility] [address] [place], [address] CL Normal 98-108 [facility] Comment on above: Result Comment: Canc elled via OM: Order cancelled - Patient discharged Performed By: #### L 100.0100, L500.2500 ####[facility] [address] [place], [address] CO2 Normal 21.0-32.0 [facility] Comment on above: Result Comment: Canc elled via OM: Order cancelled - Patient discharged Performed By: #### L 100.0100, L500.2500 ####[facility] [address] [place], [address] CREAT,SERUM Normal 0.70-1.20 [facility] Comment on above: Result Comment: Canc elled via OM: Order cancelled - Patient discharged Performed By: #### L 100.0100, L500.2500 ####[facility] [address] [place], [address] eGFR Normal >60 [facility] Comment on above: Result Comment: Canc elled via OM: Order cancelled - Patient discharged Performed By: #### L 100.0100, L500.2500 ####[facility] [address] [place], [address] GAP Normal 5-15 [facility] Comment on above: Result Comment: Canc elled via OM: Order cancelled - Patient discharged Performed By: #### L 100.0100, L500.2500 ####[facility] [address] [place], [address] GLU Normal 70-99 [facility] Comment on above: Result Comment: Canc elled via OM: Order cancelled - Patient discharged Performed By: #### L 100.0100, L500.2500 ####[facility] [address] [place], [address] Potassium Normal 3.3-5.1 [facility] Comment on above: Result Comment: Canc elled via OM: Order cancelled - Patient discharged Performed By: #### L 100.0100, L500.2500 ####[facility] [address] [place], [address] Basic Metabolic Profile (BMP) Normal 133-145 [facility] Comment on above: Result Comment: Canc elled via OM: Order cancelled - Patient discharged Performed By: #### L 100.0100, L500.2500 ####[facility] [address] [place], [address] CBC W/Diff, Automatedon 08-0 -2024 Absolute Neut Normal 2.0-7.7 [facility] Comment on above: Result Comment: Canc elled via OM: Order cancelled - Patient discharged Performed By: #### L 100.0100, L500.2500 ####[facility] [address] [place], [address] HCT Normal 40-54 [facility] Comment on above: Result Comment: Canc elled via OM: Order cancelled - Patient discharged Performed By: #### L 100.0100, L500.2500 ####[facility] [address] [place], [address] HGB Normal 13.0-16.5 [facility] Comment on above: Result Comment: Canc elled via OM: Order cancelled - Patient discharged Performed By: #### L 100.0100, L500.2500 ####[facility] [address] [place], [address] MCH Normal 27.0-32.0 [facility] Comment on above: Result Comment: Canc elled via OM: Order cancelled - Patient discharged Performed By: #### L 100.0100, L500.2500 ####[facility] [address] [place], [address] MCHC Normal 32-36 [facility] Comment on above: Result Comment: Canc elled via OM: Order cancelled - Patient discharged Performed By: #### L 100.0100, L500.2500 ####[facility] [address] [place], [address] MCV Normal 80-94 [facility] Comment on above: Result Comment: Canc elled via OM: Order cancelled - Patient discharged Performed By: #### L 100.0100, L500.2500 ####[facility] [address] [place], [address] NEUT% Normal 47-70 [facility] Comment on above: Result Comment: Canc elled via OM: Order cancelled - Patient discharged Performed By: #### L 100.0100, L500.2500 ####[facility] [address] [place], [address] PLT Normal 150-450 [facility] Comment on above: Result Comment: Canc elled via OM: Order cancelled - Patient discharged Performed By: #### L 100.0100, L500.2500 ####[facility] [address] [place], [address] RBC Normal 4.6-6.2 [facility] Comment on above: Result Comment: Canc elled via OM: Order cancelled - Patient discharged Performed By: #### L 100.0100, L500.2500 ####[facility] [address] [place], [address] RDW CV Normal 11.6-14.6 [facility] Comment on above: Result Comment: Canc elled via OM: Order cancelled - Patient discharged Performed By: #### L 100.0100, L500.2500 ####[facility] [address] [place], [address] RDW SD Normal 35.1-43.9 [facility] Comment on above: Result Comment: Canc elled via OM: Order cancelled - Patient discharged Performed By: #### L 100.0100, L500.2500 ####[facility] [address] [place], [address] WBC Normal 4.4-11.0 [facility] Comment on above: Result Comment: Canc elled via OM: Order cancelled - Patient discharged Performed By: #### L 100.0100, L500.2500 ####[facility] [address] [place], [address] Absolute lymphocyte countOrd ered By: Tricia Carvalho on 12-29-2024 Lymphocytes Auto (Unsp spec) [#/Vol] 0.77 10*3/uL Low 0.83-4.51 [facility] Absolute neutrophil countOrd ered By: Tricia Carvalho on 12-29-2024 Neutrophils (Bld) [#/Vol] 2.5 10*3/uL 2.0-7.7 [facility] Anion gap in Serum or Plasma Ordered By: Tricia Carvalho on 12-29-2024 Anion gap [Moles/Vol] 9 mmol/L 5- [facility] Automated lymphocyte count a s percentage of total leukocytesOrdered By: Tricia Carvalho on 12-29-2024 Lymphocytes/100 WBC Auto (Unsp spec) 20.3 % 19-41 [facility] BUN/creatinine ratioOrdered By: Tricia Carvalho on 12-29-2024 Urea nitrogen/Creatinine [Mass ratio] 11.1 mg/mg 10- [facility] Basic Metabolic Profile (BMP )on 12-29-2024 BUN/CRE 11.1 RATIO Normal - [facility] Comment on above: Performed By: #### L 500.2500, L100.0100 ####[facility] [address] [place], [address] Calcium [Mass/Vol] 8.8 mg/dL Normal 7.6-11.0 [facility] Comment on above: Performed By: #### L 500.2500, L100.0100 ####[facility] [address] [place], [address] Chloride [Moles/Vol] 103 mmol/L Normal 98-108 [facility] Comment on above: Performed By: #### L 500.2500, L100.0100 ####[facility] [address] [place], [address] CO2 [Moles/Vol] 25.3 mmol/L Normal 21.0-32.0 [facility] Comment on above: Performed By: #### L 500.2500, L100.0100 ####[facility] [address] [place], [address] Creatinine [Mass/Vol] 0.71 mg/dL Normal 0.70-1.20 [facility] Comment on above: Performed By: #### L 500.2500, L100.0100 ####[facility] [address] [place], [address] ECRCL 168.59 ml/min Normal 50-250 [facility] Comment on above: Performed By: #### L 500.2500, L100.0100 ####[facility] [address] [place], [address] GAP 9 Normal 5-15 [facility] Comment on above: Performed By: #### L 500.2500, L100.0100 ####[facility] [address] [place], [address] GFR/1.73 sq M.predicted among non-blacks MDRD (S/P/Bld) [Vol rate/Area] 110 mL/min/{1.73_m2} Normal >60 [facility] Comment on above: Result Comment: mL/m in/1.73m2 CKD-EPI Creatinine Equation (2020) Performed By: #### L 500.2500, L100.0100 ####[facility] [address] [place], [address] Glucose [Mass/Vol] 147 mg/dL High 70-99 [facility] Comment on above: Performed By: #### L 500.2500, L100.0100 ####[facility] [address] [place], [address] Potassium [Moles/Vol] 4.0 mmol/L Normal 3.3-5.1 [facility] Comment on above: Result Comment: Hemo lysis present, Results??could be affected.?? Performed By: #### L 500.2500, L100.0100 ####[facility] [address] [place], [address] Sodium [Moles/Vol] 138 mmol/L Normal 133-145 [facility] Comment on above: Performed By: #### L 500.2500, L100.0100 ####[facility] [address] [place], [address] Urea nitrogen [Mass/Vol] 8 mg/dL Normal 4-19 [facility] Comment on above: Performed By: #### L 500.2500, L100.0100 ####[facility] [address] [place], [address] Basophil percentageOrdered B y: Tricia Carvalho on 12-29-2024 Basophils/100 WBC (Bld) 0.5 % 0-1 [facility] Bedside Glucoseon 12-29-2024 FINGERSTICK GLU 205 mg/dL High 74-106 [facility] Comment on above: Result Comment: STEPHANIE GEMENT OF PATIENT CARE PER NURSING PROTOCOL Performed By: #### L 501.080 ####[facility] [address] [place], [address] FINGERSTICK GLU 144 mg/dL High 74-106 [facility] Comment on above: Result Comment: STEPHANIE GEMENT OF PATIENT CARE PER NURSING PROTOCOL Performed By: #### L 501.080 ####[facility] [address] [place], [address] CBC W/Diff, Automatedon 08-0 Absolute Lymph 0.77 X10 3/uL Low 0.83-4.51 [facility] Comment on above: Performed By: #### L 500.2500, L100.0100 ####[facility] [address] [place], [address] Absolute Neut 2.5 X10 3/uL Normal 2.0-7.7 [facility] Comment on above: Performed By: #### L 500.2500, L100.0100 ####[facility] [address] [place], [address] Basophils/100 WBC (Bld) 0.5 % Normal 0-1 [facility] Comment on above: Performed By: #### L 500.2500, L100.0100 ####[facility] [address] [place], [address] Eosinophils/100 WBC (Bld) 2.4 % Normal 0-5 [facility] Comment on above: Performed By: #### L 500.2500, L100.0100 ####[facility] [address] [place], [address] Erythrocyte distribution width (RBC) [Ratio] 13.6 % Normal 11.6-14.6 [facility] Comment on above: Performed By: #### L 500.2500, L100.0100 ####[facility] [address] [place], [address] Hematocrit (Bld) [Volume fraction] 40.2 % Normal 40-54 [facility] Comment on above: Performed By: #### L 500.2500, L100.0100 ####[facility] [address] [place], [address] Hemoglobin (Bld) [Mass/Vol] 12.5 g/dL Low 13.0-16.5 [facility] Comment on above: Performed By: #### L 500.2500, L100.0100 ####[facility] [address] [place], [address] IG% 0.300 Normal 0.0-0.9 [facility] Comment on above: Result Comment: IG% - Immature Granulocytes (promyelocytes, myelocytes andmetamyelocytes) > 1% indicates that a LEFT SHIFT is Present. Performed By: #### L 500.2500, L100.0100 ####[facility] [address] [place], [address] Lymphocytes/100 WBC (Bld) 20.3 % Normal 19-41 [facility] Comment on above: Performed By: #### L 500.2500, L100.0100 ####[facility] [address] [place], [address] MCH (RBC) [Entitic mass] 26.9 pg Low 27.0-32.0 [facility] Comment on above: Performed By: #### L 500.2500, L100.0100 ####[facility] [address] [place], [address] MCHC (RBC) [Mass/Vol] 31.1 g/dL Low 32-36 [facility] Comment on above: Performed By: #### L 500.2500, L100.0100 ####[facility] [address] [place], [address] MCV (RBC) [Entitic vol] 86.5 fL Normal 80-94 [facility] Comment on above: Performed By: #### L 500.2500, L100.0100 ####[facility] [address] [place], [address] Monocytes/100 WBC (Bld) 11.3 % High 0-10 [facility] Comment on above: Performed By: #### L 500.2500, L100.0100 ####[facility] [address] [place], [address] Neutrophils/100 WBC (Bld) 65.2 % Normal 47-70 [facility] Comment on above: Performed By: #### L 500.2500, L100.0100 ####[facility] [address] [place], [address] Nucleated RBC (Bld) [#/Vol] 0 10*3/uL Normal 0-5 [facility] [facility] Comment on above: Performed By: #### L 500.2500, L100.0100 ####[facility] [address] [place], [address] Platelet mean volume (Bld) [Entitic vol] 9.5 fL Normal 6.2-12.0 [facility] Comment on above: Performed By: #### L 500.2500, L100.0100 ####[facility] [address] [place], [address] Platelets (Bld) [#/Vol] 127 10*3/uL Low 150-450 [facility] Comment on above: Performed By: #### L 500.2500, L100.0100 ####[facility] [address] [place], [address] RBC (Bld) [#/Vol] 4.65 10*6/uL Normal 4.6-6.2 [facility] Comment on above: Performed By: #### L 500.2500, L100.0100 ####[facility] [address] [place], [address] RDW SD 43.1 fl Normal 35.1-43.9 [facility] Comment on above: Performed By: #### L 500.2500, L100.0100 ####[facility] [address] [place], [address] WBC (Bld) [#/Vol] 3.8 10*3/uL Low 4.4-11.0 [facility] Comment on above: Performed By: #### L 500.2500, L100.0100 ####[facility] [address] [place], [address] Carbon dioxide, total [Moles /volume] in Central venous bloodOrdered By: Tricia Carvalho on 12-29-2024 CO2 [Moles/Vol] 25.3 mmol/L 21.0-32.0 [facility] Chloride assayOrdered By: Na na Deven on 12-29-2024 Chloride [Moles/Vol] 103 mmol/L 98-108 [facility] Eosinophil percentageOrdered By: Tricia Carvalho on 12-29-2024 Eosinophils/100 WBC (Bld) 2.4 % 0-5 [facility] Erythrocyte distribution wid th ratioOrdered By: Tricia Carvalho on 12-29-2024 Erythrocyte distribution width (RBC) [Ratio] 13.6 % 11.6-14.6 [facility] Erythrocyte distribution wid th standard deviationOrdered By: Tricia Carvalho on 12-29-2024 Erythrocyte distribution width (RBC) [Ratio] 43.1 fl 35.1-43.9 [facility] Glomerular filtration rate ( GFR) estimation/1.73 sq m using serum, plasma, or whole bOrdered By: Tricia Carvalho on 12-29-2024 GFR/1.73 sq M.predicted among non-blacks MDRD (S/P/Bld) [Vol rate/Area] 110 mL/min/{1.73_m2} >60 [facility] Comment on above: mL/min/1.73m2 CKD-EP I Creatinine Equation (2020) [facility] deOrdered By: Tricia Carvalho on 12-29-2024 Glucose [Mass/Vol] 144 mg/dL High 74-106 [facility] Comment on above: MANAGEMENT OF PATIEN T CARE PER NURSING PROTOCOL Hematocrit Auto (Bld) [Volum e fraction]Ordered By: Tricia Carvalho on 12-29-2024 Hematocrit (Bld) [Volume fraction] 40.2 % 40-54 [facility] Hemoglobin measurementOrdere d By: Tricia Carvalho on 12-29-2024 Hemoglobin (Bld) [Mass/Vol] 12.5 g/dL Low 13.0-16.5 [facility] Immature granulocytes/100 WB C Auto (Bld)Ordered By: Tricia Carvalho on 12-29-2024 Immature granulocytes/100 WBC (Bld) 0.300 % 0.0-0.9 [facility] Comment on above: IG% - Immature Granu locytes (promyelocytes, myelocytes and metamyelocytes) > 1% indicates that a LEFT SHIFT is Present. MCV (mean corpuscular volume ) determinationOrdered By: Tricia Carvalho on 12-29-2024 MCV (RBC) [Entitic vol] 86.5 fL 80-94 [facility] Mean corpuscular hemoglobin (MCH) determinationOrdered By: Tricia Carvalho on 12-29-2024 MCH (RBC) [Entitic mass] 26.9 pg Low 27.0-32.0 [facility] Mean corpuscular hemoglobin concentration (MCHC) determinationOrdered By: Tricia Carvalho on 12-29-2024 MCHC (RBC) [Mass/Vol] 31.1 g/dL Low 32-36 [facility] Mean platelet volume determi nationOrdered By: Tricia Carvalho on 12-29-2024 Platelet mean volume (Bld) [Entitic vol] 9.5 fL 6.2-12.0 [facility] Monocyte percentageOrdered B y: Tricia Carvalho on 12-29-2024 Monocytes/100 WBC (Bld) 11.3 % High 0-10 [facility] Neutrophil percentageOrdered By: Tricia Carvalho on 12-29-2024 Neutrophils/100 WBC (Bld) 65.2 % 47-70 [facility] Nucleated red blood cell per centageOrdered By: Tricia Carvalho on 12-29-2024 Nucleated RBC/100 WBC (Bld) [Ratio] 0 % 0-5 [facility] Platelet countOrdered By: Na debbie Carvalho on 12-29-2024 Platelets (Bld) [#/Vol] 127 10*3/uL Low 150-450 [facility] Potassium measurement (mass/ volume)Ordered By: Tricia Carvalho on 12-29-2024 Potassium (Unsp spec) [Mass/Vol] 4.0 mmol/L 3.3-5.1 [facility] Comment on above: Hemolysis present, R esults could be affected. RBC Auto (Bld) [#/Vol]Ordere d By: Tricia Carvalho on 12-29-2024 RBC (Bld) [#/Vol] 4.65 10*6/uL 4.6-6.2 [facility] Serum creatinine measurement (mass/volume)Ordered By: Tricia Carvalho on 12-29-2024 Creatinine [Mass/Vol] 0.71 mg/dL 0.70-1.20 [facility] Serum glucose measurement (m ass/volume)Ordered By: Tricia Carvalho on 12-29-2024 Glucose [Mass/Vol] 147 mg/dL High 70-99 [facility] Serum or plasma calcium scott urement (mass/volume)Ordered By: Tricia Carvalho on 12-29-2024 Calcium [Mass/Vol] 8.8 mg/dL 7.6-11.0 [facility] Serum or plasma urea nitroge n measurement (mass/volume)Ordered By: Tricia Carvalho on 12-29-2024 Urea nitrogen [Mass/Vol] 8 mg/dL 4-19 [facility] Sodium levelOrdered By: Tricia Carvalho on 12-29-2024 Sodium [Moles/Vol] 138 mmol/L 133-145 [facility] White blood cell (WBC) count Ordered By: Tricia Carvalho on 12-29-2024 WBC (Bld) [#/Vol] 3.8 10*3/uL Low 4.4-11.0 [facility] Basic Metabolic Profile (BMP )on 12-28-2024 BUN/CRE 10.9 RATIO Normal 10-20 [facility] Comment on above: Performed By: #### L 100.0100, L300.4310, L500.2500, L300.3900 ####[facility] [address] [place], [address] Calcium [Mass/Vol] 8.7 mg/dL Normal 7.6-11.0 [facility] Comment on above: Performed By: #### L 100.0100, L300.4310, L500.2500, L300.3900 ####[facility] [address] [place], [address] Chloride [Moles/Vol] 101 mmol/L Normal 98-108 [facility] Comment on above: Performed By: #### L 100.0100, L300.4310, L500.2500, L300.3900 ####[facility] [address] [place], [address] CO2 [Moles/Vol] 26.0 mmol/L Normal 21.0-32.0 [facility] Comment on above: Performed By: #### L 100.0100, L300.4310, L500.2500, L300.3900 ####[facility] [address] [place], [address] Creatinine [Mass/Vol] 0.79 mg/dL Normal 0.70-1.20 [facility] Comment on above: Performed By: #### L 100.0100, L300.4310, L500.2500, L300.3900 ####[facility] [address] [place], [address] ECRCL 152.63 ml/min Normal 50-250 [facility] Comment on above: Performed By: #### L 100.0100, L300.4310, L500.2500, L300.3900 ####[facility] [address] [place], [address] GAP 9 Normal 5-15 [facility] Comment on above: Performed By: #### L 100.0100, L300.4310, L500.2500, L300.3900 ####[facility] [address] [place], [address] GFR/1.73 sq M.predicted among non-blacks MDRD (S/P/Bld) [Vol rate/Area] 106 mL/min/{1.73_m2} Normal >60 [facility] Comment on above: Result Comment: mL/m in/1.73m2 CKD-EPI Creatinine Equation (2020) Performed By: #### L 100.0100, L300.4310, L500.2500, L300.3900 ####[facility] [address] [place], [address] Glucose [Mass/Vol] 167 mg/dL High 70-99 [facility] Comment on above: Performed By: #### L 100.0100, L300.4310, L500.2500, L300.3900 ####[facility] [address] [place], [address] Potassium [Moles/Vol] 3.7 mmol/L Normal 3.3-5.1 [facility] Comment on above: Performed By: #### L 100.0100, L300.4310, L500.2500, L300.3900 ####[facility] [address] [place], [address] Sodium [Moles/Vol] 136 mmol/L Normal 133-145 [facility] Comment on above: Performed By: #### L 100.0100, L300.4310, L500.2500, L300.3900 ####[facility] [address] [place], [address] Urea nitrogen [Mass/Vol] 9 mg/dL Normal 4-19 [facility] Comment on above: Performed By: #### L 100.0100, L300.4310, L500.2500, L300.3900 ####[facility] [address] [place], [address] Bedside Glucoseon 12-28-2024 FINGERSTICK GLU 205 mg/dL High 74-106 [facility] Comment on above: Result Comment: STEPHANIE GEMENT OF PATIENT CARE PER NURSING PROTOCOL Performed By: #### L 501.080 ####[facility] [address] [place], [address] FINGERSTICK GLU 121 mg/dL High 74-106 [facility] Comment on above: Result Comment: STEPHANIE GEMENT OF PATIENT CARE PER NURSING PROTOCOL Performed By: #### L 501.080 ####[facility] [address] [place], [address] FINGERSTICK GLU 146 mg/dL High 74-106 [facility] Comment on above: Result Comment: STEPHANIE GEMENT OF PATIENT CARE PER NURSING PROTOCOL Performed By: #### L 501.080 ####[facility] [address] [place], [address] FINGERSTICK GLU 141 mg/dL High 74-106 [facility] Comment on above: Result Comment: STEPHANIE GEMENT OF PATIENT CARE PER NURSING PROTOCOL Performed By: #### L 501.080 ####[facility] [address] [place], [address] Bilirubin Test strip Ql (U)O rdered By: Nguyễn Al on 12-28-2024 Bilirubin Ql (U) Negative Negative [facility] Bilirubin, totalOrdered By: Keagan Delgado on 12-28-2024 Bilirubin [Mass/Vol] 0.30 mg/dL 0.00-1.30 [facility] CBC W/Diff, Automatedon 08-0 Absolute Lymph 1.13 X10 3/uL Normal 0.83-4.51 [facility] Comment on above: Performed By: #### L 100.0100, L501.2300 ####[facility] [address] [place], [address] Absolute Neut 3.7 X10 3/uL Normal 2.0-7.7 [facility] Comment on above: Performed By: #### L 100.0100, L501.2300 ####[facility] [address] [place], [address] Basophils/100 WBC (Bld) 1.1 % High 0-1 [facility] Comment on above: Performed By: #### L 100.0100, L501.2300 ####[facility] [address] [place], [address] Eosinophils/100 WBC (Bld) 1.8 % Normal 0-5 [facility] Comment on above: Performed By: #### L 100.0100, L501.2300 ####[facility] [address] [place], [address] Erythrocyte distribution width (RBC) [Ratio] 13.4 % Normal 11.6-14.6 [facility] Comment on above: Performed By: #### L 100.0100, L501.2300 ####[facility] [address] [place], [address] Hematocrit (Bld) [Volume fraction] 45.1 % Normal 40-54 [facility] Comment on above: Performed By: #### L 100.0100, L501.2300 ####[facility] [address] [place], [address] Hemoglobin (Bld) [Mass/Vol] 14.2 g/dL Normal 13.0-16.5 [facility] Comment on above: Performed By: #### L 100.0100, L501.2300 ####[facility] [address] [place], [address] IG% 0.400 Normal 0.0-0.9 [facility] Comment on above: Result Comment: IG% - Immature Granulocytes (promyelocytes, myelocytes andmetamyelocytes) > 1% indicates that a LEFT SHIFT is Present. Performed By: #### L 100.0100, L501.2300 ####[facility] [address] [place], [address] Lymphocytes/100 WBC (Bld) 19.9 % Normal 19-41 [facility] Comment on above: Performed By: #### L 100.0100, L501.2300 ####[facility] [address] [place], [address] MCH (RBC) [Entitic mass] 26.9 pg Low 27.0-32.0 [facility] Comment on above: Performed By: #### L 100.0100, L501.2300 ####[facility] [address] [place], [address] MCHC (RBC) [Mass/Vol] 31.5 g/dL Low 32-36 [facility] Comment on above: Performed By: #### L 100.0100, L501.2300 ####[facility] [address] [place], [address] MCV (RBC) [Entitic vol] 85.6 fL Normal 80-94 [facility] Comment on above: Performed By: #### L 100.0100, L501.2300 ####[facility] [address] [place], [address] Monocytes/100 WBC (Bld) 11.6 % High 0-10 [facility] Comment on above: Performed By: #### L 100.0100, L501.2300 ####[facility] [address] [place], [address] Neutrophils/100 WBC (Bld) 65.2 % Normal 47-70 [facility] Comment on above: Performed By: #### L 100.0100, L501.2300 ####[facility] [address] [place], [address] Nucleated RBC (Bld) [#/Vol] 0 10*3/uL Normal 0-5 [facility] Comment on above: Performed By: #### L 100.0100, L501.2300 ####[facility] [address] [place], [address] Platelet mean volume (Bld) [Entitic vol] 10.1 fL Normal 6.2-12.0 [facility] Comment on above: Performed By: #### L 100.0100, L501.2300 ####[facility] [address] [place], [address] Platelets (Bld) [#/Vol] 150 10*3/uL Normal 150-450 [facility] Comment on above: Performed By: #### L 100.0100, L501.2300 ####[facility] [address] [place], [address] RBC (Bld) [#/Vol] 5.27 10*6/uL Normal 4.6-6.2 [facility] Comment on above: Performed By: #### L 100.0100, L501.2300 ####[facility] [address] [place], [address] RDW SD 42.1 fl Normal 35.1-43.9 [facility] Comment on above: Performed By: #### L 100.0100, L501.2300 ####[facility] [address] [place], [address] WBC (Bld) [#/Vol] 5.7 10*3/uL Normal 4.4-11.0 [facility] Comment on above: Performed By: #### L 100.0100, L501.2300 ####[facility] [address] [place], [address] Absolute Lymph 1.04 X10 3/uL Normal 0.83-4.51 [facility] Comment on above: Performed By: #### L 100.0100, L300.4310, L500.2500, L300.3900 ####[facility] [address] [place], [address] Absolute Neut 4.1 X10 3/uL Normal 2.0-7.7 [facility] Comment on above: Performed By: #### L 100.0100, L300.4310, L500.2500, L300.3900 ####[facility] [address] [place], [address] Basophils/100 WBC (Bld) 0.7 % Normal 0-1 [facility] Comment on above: Performed By: #### L 100.0100, L300.4310, L500.2500, L300.3900 ####[facility] [address] [place], [address] Eosinophils/100 WBC (Bld) 1.3 % Normal 0-5 [facility] Comment on above: Performed By: #### L 100.0100, L300.4310, L500.2500, L300.3900 ####[facility] [address] [place], [address] Erythrocyte distribution width (RBC) [Ratio] 13.4 % Normal 11.6-14.6 [facility] Comment on above: Performed By: #### L 100.0100, L300.4310, L500.2500, L300.3900 ####[facility] [address] [place], [address] Hematocrit (Bld) [Volume fraction] 42.7 % Normal 40-54 [facility] Comment on above: Performed By: #### L 100.0100, L300.4310, L500.2500, L300.3900 ####[facility] [address] [place], [address] Hemoglobin (Bld) [Mass/Vol] 13.6 g/dL Normal 13.0-16.5 [facility] Comment on above: Performed By: #### L 100.0100, L300.4310, L500.2500, L300.3900 ####[facility] [address] [place], [address] IG% 0.500 Normal 0.0-0.9 [facility] Comment on above: Result Comment: IG% - Immature Granulocytes (promyelocytes, myelocytes andmetamyelocytes) > 1% indicates that a LEFT SHIFT is Present. Performed By: #### L 100.0100, L300.4310, L500.2500, L300.3900 ####[facility] [address] [place], [address] Lymphocytes/100 WBC (Bld) 17.2 % Low 19-41 [facility] Comment on above: Performed By: #### L 100.0100, L300.4310, L500.2500, L300.3900 ####[facility] [address] [place], [address] MCH (RBC) [Entitic mass] 27.1 pg Normal 27.0-32.0 [facility] Comment on above: Performed By: #### L 100.0100, L300.4310, L500.2500, L300.3900 ####[facility] [address] [place], [address] MCHC (RBC) [Mass/Vol] 31.9 g/dL Low 32-36 [facility] Comment on above: Performed By: #### L 100.0100, L300.4310, L500.2500, L300.3900 ####[facility] [address] [place], [address] MCV (RBC) [Entitic vol] 85.1 fL Normal 80-94 [facility] Comment on above: Performed By: #### L 100.0100, L300.4310, L500.2500, L300.3900 ####[facility] [address] [place], [address] Monocytes/100 WBC (Bld) 11.8 % High 0-10 [facility] Comment on above: Performed By: #### L 100.0100, L300.4310, L500.2500, L300.3900 ####[facility] [address] [place], [address] Neutrophils/100 WBC (Bld) 68.5 % Normal 47-70 [facility] Comment on above: Performed By: #### L 100.0100, L300.4310, L500.2500, L300.3900 ####[facility] [address] [place], [address] Nucleated RBC (Bld) [#/Vol] 0 10*3/uL Normal 0-5 [facility] Comment on above: Performed By: #### L 100.0100, L300.4310, L500.2500, L300.3900 ####[facility] [address] [place], [address] Platelet mean volume (Bld) [Entitic vol] 10.3 fL Normal 6.2-12.0 [facility] Comment on above: Performed By: #### L 100.0100, L300.4310, L500.2500, L300.3900 ####[facility] [address] [place], [address] Platelets (Bld) [#/Vol] 146 10*3/uL Low 150-450 [facility] Comment on above: Performed By: #### L 100.0100, L300.4310, L500.2500, L300.3900 ####[facility] [address] [place], [address] RBC (Bld) [#/Vol] 5.02 10*6/uL Normal 4.6-6.2 [facility] Comment on above: Performed By: #### L 100.0100, L300.4310, L500.2500, L300.3900 ####[facility] [address] [place], [address] RDW SD 41.7 fl Normal 35.1-43.9 [facility] Comment on above: Performed By: #### L 100.0100, L300.4310, L500.2500, L300.3900 ####[facility] [address] [place], [address] WBC (Bld) [#/Vol] 6.0 10*3/uL Normal 4.4-11.0 [facility] Comment on above: Performed By: #### L 100.0100, L300.4310, L500.2500, L300.3900 ####[facility] [address] [place], [address] Comprehensive Metabolic Prof txon 12-28-2024 Albumin [Mass/Vol] 3.5 g/dL Normal 3.5-5.0 [facility] Comment on above: Performed By: #### L 500.4050, L501.5200, L501.9520 ####[facility] [address] [place], [address] Albumin/Globulin [Mass ratio] 1.1 {ratio} Normal 0.9-2.4 [facility] Comment on above: Performed By: #### L 500.4050, L501.5200, L501.9520 ####[facility] [address] [place], [address] ALK PHOS 77 U/L Normal 40-129 [facility] Comment on above: Performed By: #### L 500.4050, L501.5200, L501.9520 ####[facility] [address] [place], [address] ALT [Catalytic activity/Vol] 12 U/L Normal <=46 [facility] Comment on above: Performed By: #### L 500.4050, L501.5200, L501.9520 ####[facility] [address] [place], [address] AST [Catalytic activity/Vol] 23 U/L Normal <=37 [facility] Comment on above: Performed By: #### L 500.4050, L501.5200, L501.9520 ####[facility] [address] [place], [address] Bilirubin [Mass/Vol] 0.30 mg/dL Normal 0.00-1.30 [facility] Comment on above: Performed By: #### L 500.4050, L501.5200, L501.9520 ####[facility] [address] [place], [address] BUN/CRE 12.1 RATIO Normal 10-20 [facility] Comment on above: Performed By: #### L 500.4050, L501.5200, L501.9520 ####[facility] [address] [place], [address] Calcium [Mass/Vol] 8.6 mg/dL Normal 7.6-11.0 [facility] Comment on above: Performed By: #### L 500.4050, L501.5200, L501.9520 ####[facility] [address] [place], [address] Chloride [Moles/Vol] 102 mmol/L Normal 98-108 [facility] Comment on above: Performed By: #### L 500.4050, L501.5200, L501.9520 ####[facility] [address] [place], [address] CO2 [Moles/Vol] 25.5 mmol/L Normal 21.0-32.0 [facility] Comment on above: Performed By: #### L 500.4050, L501.5200, L501.9520 ####[facility] [address] [place], [address] Creatinine [Mass/Vol] 0.77 mg/dL Normal 0.70-1.20 [facility] Comment on above: Performed By: #### L 500.4050, L501.5200, L501.9520 ####[facility] [address] [place], [address] ECRCL 155.83 ml/min Normal 50-250 [facility] Comment on above: Performed By: #### L 500.4050, L501.5200, L501.9520 ####[facility] [address] [place], [address] GAP 10 Normal 5-15 [facility] Comment on above: Performed By: #### L 500.4050, L501.5200, L501.9520 ####[facility] [address] [place], [address] GFR/1.73 sq M.predicted among non-blacks MDRD (S/P/Bld) [Vol rate/Area] 107 mL/min/{1.73_m2} Normal >60 [facility] Comment on above: Result Comment: mL/m in/1.73m2 CKD-EPI Creatinine Equation (2020) Performed By: #### L 500.4050, L501.5200, L501.9520 ####[facility] [address] [place], [address] Globulin (S) [Mass/Vol] 3.3 g/dL Normal 2.2-4.2 [facility] Comment on above: Performed By: #### L 500.4050, L501.5200, L501.9520 ####[facility] [address] [place], [address] Glucose [Mass/Vol] 145 mg/dL High 70-99 [facility] Comment on above: Performed By: #### L 500.4050, L501.5200, L501.9520 ####[facility] [address] [place], [address] Potassium [Moles/Vol] 4.2 mmol/L Normal 3.3-5.1 [facility] Comment on above: Performed By: #### L 500.4050, L501.5200, L501.9520 ####[facility] [address] [place], [address] Sodium [Moles/Vol] 137 mmol/L Normal 133-145 [facility] Comment on above: Performed By: #### L 500.4050, L501.5200, L501.9520 ####[facility] [address] [place], [address] T PROT 6.7 g/dL Normal 5.9-8.4 [facility] Comment on above: Performed By: #### L 500.4050, [id number], L501.9520 ####[facility] [address] [place], [address] Urea nitrogen [Mass/Vol] 9 mg/dL Normal 4-19 [facility] Comment on above: Performed By: #### L 500.4050, L501.5200, L501.9520 ####[facility] [address] [place], [address] Consultation - Cardiologyon 12-28-2024 Consultation - Cardiology Normal [facility] Echo Complete W/ Contraston 12-28-2024 Echo Complete W/ Contrast Normal [facility] Echocardiogram study reportO rdered By: Gala Hewitt on 12-28-2024 Study report [facility] [address] [place] [address] Echo Complete W/ Contrast 12/28/24 0940 MR#: [id number] Acct: [id number] Name: CARLOS ALBERTO HOROWITZ Jr. Rep #:[id number] : 1970 54 From: Gala juares MD Attending Dr: Dr. Tricia Carvalho MD Status: ADM IN Ordering Dr: Keagan Rowe DO Date: 12/28/24 Location: U Sex: M C Admitted: 12/28/24 Reason For Study Reason For Study: ATRIAL FIBRILLATION/FLUTTER Procedure This was a 2D Doppler, Color Flow transthoracic echocardiogram. The study was technically difficult. Due to body habitus. Contrast injection was performed. Exam performed portable in patient room. Left Ventricle Normal left ventricular size. Moderately increased left ventricular wall thickness. Normal LVEF with estimated ejection fraction of 55 to 60%. No regional wall motion abnormalities. Grade II diastolicfunction. Right Ventricle Mild Right ventricular dilation with preserved function. Atria Mild to moderately dilated left atrium Normal right atrium. Mitral Valve The mitral valve is structurally normal. No prolapse or stenosis seen. Trivial mitral valve insufficiency. Tricuspid Valve Normal tricuspid valve. Trivial tricuspid valve insufficiency. Unable to estimate RV systolic pressure due to insufficient tricuspid regurgitant envelope. Aortic Valve Normal aortic valve. Pulmonic Valve The pulmonic valve is not well visualized. Great Vessels The aortic root is not well visualized. Pericardium/Pleural No pericardial effusion. Medication Diluted definity 3.0ml given slow IV push to enhance endocardial definition. MMode/2D Measurements & Calculations LVIDd: 5.3 cm IVSd: 1.5 cm Ao root diam: 3.8 cm LVIDs: 3.2 cm LVPWd: 1.4 cm RVDd: 3.7 cm FS: 40.2 % asc Aorta Diam: 3.8 cm LAV(MOD-bp): 122.4 ml LVAd ap4: 39.8 cm2 LAV(MOD-bp) Indexed: 48.8 ml/m2 LVLd ap4: 8.9 cm LAV(MOD-sp2): 112.3 ml EDV(MOD-sp4): 153.9 ml LAV(MOD-sp4): 112.6 ml EDV(sp4-el): 151.3 ml LVAs ap4: 22.1 cm2 LVLs ap4: 7.4 cm ESV(MOD-sp4): 62.1 ml ESV(sp4-el): 56.4 ml EF(MOD-sp4): 59.6 % EF(sp4-el): 62.7 % SV(MOD-sp4): 91.7 ml SV(sp4-el): 94.9 ml LA A4 area: 29.3 cm2 SI(MOD-sp4): 36.6 ml/m2 RA A4 area: 24.1 cm2 TAPSE: 2.4 cm Time Measurements MV dec time: 0.17 sec Doppler Measurements & Calculations MV E max emmy: 108.1 cm/sec Lat Peak E' Emmy: 12.2 cm/sec Med Peak E' Emmy: 13.2 cm/sec MV A max emmy: 68.4 cm/sec E/E' lat: 8.9 E/E' med: 8.2 MV E/A: 1.6 MV V2 max: 114.3 cm/sec MV P1/2t max emmy: 116.5 cm/sec Ao V2 max: 117.2 cm/sec MV max P.2 mmHg MV P1/2t: 43.2 msec Ao max P.5 mmHg MV V2 mean: 56.0 cm/sec MV dec slope: 789.1 cm/sec2 Ao V2 mean: 91.9 cm/sec MV mean P.5 mmHg MVA(P1/2t): 5.1 cm2 Ao mean P.6 mmHg MV V2 VTI: 28.6 cm Ao V2 VTI: 26.5 cm AV (velocity ratio): 0.77 LV V1 max: 91.7 cm/sec PA V2 max: 106.3 cm/sec TR max emmy: 293.4 cm/sec LV V1 max P.4 mmHg PA V2 mean: 71.3 cm/sec TR max P.4 mmHg LV V1 mean P.7 mmHg LV V1 mean: 61.4 cm/sec LV V1 VTI: 20.5 cm ECHO/Echo Complete W/ Contrast Interpretation Summary Normal left ventricular size. Moderately increased left ventricular wall thickness. Normal LVEF with estimated ejection fraction of 55 to 60%. No regional wall motion abnormalities. Grade II diastolicfunction. Mild Right ventricular dilation with preserved function. Mild to moderately dilated left atrium Normal right atrium Unable to estimate RV systolic pressure due to insufficient tricuspid regurgitant envelope. No hemodynamically significant valvular heart disease. Normal pericardium Ordering Physician: Keagan Rowe Referring Physician: Jhonatan Garcia Performed By: Cristel Price RDCS, RVT 12/28/24 1237 Date _ Gala Hewitt MD CC: Dr. Keagan Rowe, DO; Dr. Tricia Carvalho MD; Dr. Jhonatan Garcia DO ~ Date Dictated: 12/28/24 0940 Date Transcribed: 12/28/24 1237 Multiple Wire Sawyer: Signed [facility] Other H AND P Exam - Hospitaliston 12-28-2024 H&P Exam - Hospitalist Normal [facility] Ketones Test strip Ql (U)Ord ered By: Nguyễn Al on 12-28-2024 Ketones Ql (U) Negative Negative [facility] L501.4021on 12-28-2024 Trop T High Sen 12 ng/L Normal <=22 [facility] Comment on above: Performed By: #### L 501.4021 ####[facility] [address] [place], [place], [address] Laboratory - Chemistry and C hemistry - challengeOrdered By: Keagan Delgado on 12-28-2024 AST [Catalytic activity/Vol] 23 U/L <38 [facility] Magnesiumon 12-28-2024 Magnesium [Mass/Vol] 1.9 mg/dL Normal 1.5-2.2 [facility] Comment on above: Performed By: #### L 500.4050, L501.5200, L501.9520 ####[facility] [address] [place], [address] Magnesium measurement (mass/ volume)Ordered By: Keagan Delgado on 12-28-2024 Magnesium (Unsp spec) [Mass/Vol] 1.9 mg/dL 1.5-2.2 [facility] Microscopic analysis of urin e for red blood cells (RBC)Ordered By: Nguyễn Al on 12-28-2024 Microscopic analysis of urine for red blood cells (RBC) 0 SEEN /hpf 0-5 [facility] Mucus LM Ql (Urine sed)Order ed By: Nguyễn Al on 12-28-2024 Mucus Ql (Urine sed) 0 SEEN /hpf [facility] Nitrite Test strip Ql (U)Ord ered By: Nguyễn Al on 12-28-2024 Nitrite Ql (U) Negative Negative [facility] Phosphoruson 12-28-2024 Phosphate [Mass/Vol] 2.8 mg/dL Normal 2.7-4.5 [facility] Comment on above: Performed By: #### L 100.0100, L501.2300 ####[facility] [address] [place], [place], [id number] Protein Test strip Ql (U)Ord ered By: Nguyễn Al on 12-28-2024 Protein Ql (U) 15 mg/dl High Negative [facility] Serum globulin measurementOr dered By: Keagan Delgado on 12-28-2024 Globulin (S) [Mass/Vol] 3.3 g/dL 2.2-4.2 [facility] Serum or plasma alanine linda otransferase (ALT) measurementOrdered By: Keagan Delgado on 12-28-2024 ALT [Catalytic activity/Vol] 12 U/L <47 [facility] Serum or plasma albumin scott urement (mass/volume)Ordered By: Keagan Delgado on 12-28-2024 Albumin [Mass/Vol] 3.5 g/dL 3.5-5.0 [facility] Serum or plasma albumin/glob ulin mass ratioOrdered By: Keagan Delgado on 12-28-2024 Albumin/Globulin [Mass ratio] 1.1 {ratio} 0.9-2.4 [facility] Serum or plasma alkaline kamaljit sphatase measurementOrdered By: Keagan Delgado on 12-28-2024 ALP [Catalytic activity/Vol] 77 U/L 40-129 [facility] Squamous epithelial cells de tection in urine sediment by light microscopyOrdered By: Nguyễn Al on 12-28-2024 Epithelial cells.squamous LM Ql (Urine sed) 0 SEEN /hpf 0-5 [facility] T4 Free Directon 12-28-2024 T4 FREE DIRECT 0.90 ng/dL Normal 0.76-1.46 [facility] Comment on above: Performed By: #### L 506.0400 ####[facility] [address] [place], [place], [id number] T4 freeOrdered By: Tricia izquierdo on 12-28-2024 Free T4 [Mass/Vol] 0.90 ng/dL 0.76-1.46 [facility] TSH DL <= 0.005 mIU/L QnOrde red By: Keagan Delgado on 12-28-2024 TSH Qn 5.130 uIU/mL High 0.300-4.200 [facility] Thyroid Stim Hormone (TSH)on 12-28-2024 TSH 5.130 uIU/mL High 0.300-4.200 [facility] Comment on above: Performed By: #### L 500.4050, L501.5200, L501.9520 ####[facility] [address] [place], [address] Total proteinOrdered By: Raudel Delgado on 12-28-2024 Protein [Mass/Vol] 6.7 g/dL 5.9-8.4 [facility] Troponin T HS 2 HRon 025 Trop T High Sen 13 ng/L Normal <=22 [facility] Comment on above: Performed By: #### L 499.0042 ####[facility] [address] [place], [address] Troponin T HS 4 HRon 025 Trop T High Sen 11 ng/L Normal <=22 [facility] Comment on above: Performed By: #### L 499.0043 ####[facility] [address] [place], [place], [address] Troponin T.cardiac [Mass/vol ume] in Serum or Plasma by High sensitivity methodOrdered By: Keagan Delgado on 12-28-2024 Troponin T.cardiac High sensitivity method [Mass/Vol] 11 ng/L <22 [facility] Troponin T.cardiac High sensitivity method [Mass/Vol] 13 ng/L <22 [facility] Troponin T.cardiac High sensitivity method [Mass/Vol] 12 ng/L <22 [facility] Comment on above: Delta: 11 on 5-223 Urinalysis, Completeon 08-02 -2025 BACTERIA 0 SEEN Normal None Seen [facility] Comment on above: Order Comment: CLEAN CATCH Performed By: #### L 400.0001 ####[facility] [address] [place], [address] EPI,SQUAMOUS 0 SEEN Normal 0-5 [facility] Comment on above: Order Comment: CLEAN CATCH Performed By: #### L 400.0001 ####[facility] [address] [place], [address] Mucus Ql (Urine sed) 0 SEEN Normal [facility] Comment on above: Order Comment: CLEAN CATCH Performed By: #### L 400.0001 ####[facility] [address] [place], [address] RBC 0 SEEN Normal 0-5 [facility] Comment on above: Order Comment: CLEAN CATCH Performed By: #### L 400.0001 ####[facility] [address] [place], [address] WBC 0 SEEN Normal 0-5 [facility] Comment on above: Order Comment: CLEAN CATCH Performed By: #### L 400.0001 ####[facility] [address] [place], [address] Urine clarityOrdered By: Shivam Al on 12-28-2024 Clarity (U) Clear Clear [facility] Urine color determinationOrd ered By: Nguyễn Al on 12-28-2024 Color (U) Straw Yellow [facility] Urine glucose detectionOrder ed By: Nguyễn Al on 12-28-2024 Glucose Ql (U) Normal mg/dl Normal [facility] Urine leukocyte esterase det ection by dipstickOrdered By: Nguyễn Al on 12-28-2024 Leukocyte esterase Test strip Ql (U) Negative Negative [facility] Urine pHOrdered By: Nguyễn Al on 12-28-2024 pH (U) 6.0 [pH] 5.0 - 8.0 [facility] Urine sediment bacteria coun t by microscopy (number/high power field)Ordered By: Nguyễn Al on 12-28-2024 Bacteria LM.HPF (Urine sed) [#/Area] 0 /[HPF] None Seen [facility] Urine specific gravity measu rementOrdered By: Nguyễn Al on 12-28-2024 Specific gravity (U) [Rel density] 1.015 1.002-1.030 [facility] Urine urobilinogen measureme ntOrdered By: Nguyễn Al on 12-28-2024 Urobilinogen Ql (U) Normal mg/dl Normal [facility] White blood cell countOrdere d By: Nguyễn Al on 12-28-2024 White blood cell count 0 SEEN /hpf 0-5 [facility] 12 Lead EKGon 12-27-2024 12 Lead EKG Normal [facility] Absolute lymphocyte countOrd ered By: Nguyễn Al on 12-27-2024 Lymphocytes Auto (Unsp spec) [#/Vol] 1.04 10*3/uL 0.83-4.51 [facility] Absolute neutrophil countOrd ered By: Nguyễn Al on 12-27-2024 Neutrophils (Bld) [#/Vol] 4.1 10*3/uL 2.0-7.7 [facility] Activated partial thrombopla stin time (aPTT) in platelet poor plasma by coagulation aOrdered By: Nguyễn Al on 12-27-2024 aPTT Coag (PPP) [Time] 28.4 s 24.1-36.2 [facility] Anion gap in Serum or Plasma Ordered By: Nguyễn Al on 12-27-2024 Anion gap [Moles/Vol] 9 mmol/L 5-15 [facility] Automated lymphocyte count a s percentage of total leukocytesOrdered By: Nguyễn Al on 12-27-2024 Lymphocytes/100 WBC Auto (Unsp spec) 17.2 % Low 19-41 [facility] BUN/creatinine ratioOrdered By: Nguyễn Al on 12-27-2024 Urea nitrogen/Creatinine [Mass ratio] 10.9 mg/mg 10-20 [facility] Basophil percentageOrdered B y: Nguyễn Al on 12-27-2024 Basophils/100 WBC (Bld) 0.7 % 0-1 [facility] Carbon dioxide, total [Moles /volume] in Central venous bloodOrdered By: Nguyễn Al on 12-27-2024 CO2 [Moles/Vol] 26.0 mmol/L 21.0-32.0 [facility] Chest 1 View (Portable)on Chest 1 View (Portable) Normal [facility] Chloride assayOrdered By: Shankar Al on 12-27-2024 Chloride [Moles/Vol] 101 mmol/L 98-108 [facility] Emergency Department Summary on 12-27-2024 Emergency Department Summary Normal [facility] Eosinophil percentageOrdered By: Nguyễn Al on 12-27-2024 Eosinophils/100 WBC (Bld) 1.3 % 0-5 [facility] Erythrocyte distribution wid th ratioOrdered By: Nguyễn Al on 12-27-2024 Erythrocyte distribution width (RBC) [Ratio] 13.4 % 11.6-14.6 [facility] Erythrocyte distribution wid th standard deviationOrdered By: Nguyễn Al on 12-27-2024 Erythrocyte distribution width (RBC) [Ratio] 41.7 fl 35.1-43.9 [facility] Glomerular filtration rate ( GFR) estimation/1.73 sq m using serum, plasma, or whole bOrdered By: Nguyễn Al on 12-27-2024 GFR/1.73 sq M.predicted among non-blacks MDRD (S/P/Bld) [Vol rate/Area] 106 mL/min/{1.73_m2} >60 [facility] Comment on above: mL/min/1.73m2 CKD-EP I Creatinine Equation (2020) Hematocrit Auto (Bld) [Volum e fraction]Ordered By: Nguyễn Al on 12-27-2024 Hematocrit (Bld) [Volume fraction] 42.7 % 40-54 [facility] Hemoglobin measurementOrdere d By: Nguyễn Al on 12-27-2024 Hemoglobin (Bld) [Mass/Vol] 13.6 g/dL 13.0-16.5 [facility] Immature granulocytes/100 WB C Auto (Bld)Ordered By: Nguyễn Al on 12-27-2024 Immature granulocytes/100 WBC (Bld) 0.500 % 0.0-0.9 [facility] Comment on above: IG% - Immature Granu locytes (promyelocytes, myelocytes and metamyelocytes) > 1% indicates that a LEFT SHIFT is Present. International normalized rat io (INR) calculationOrdered By: Nguyễn Al on 12-27-2024 INR Coag (Bld) [Relative time] 1.2 {INR} [facility] MCV (mean corpuscular volume ) determinationOrdered By: Nguyễn Al on 12-27-2024 MCV (RBC) [Entitic vol] 85.1 fL 80-94 [facility] Mean corpuscular hemoglobin (MCH) determinationOrdered By: Nguyễn Al on 12-27-2024 MCH (RBC) [Entitic mass] 27.1 pg 27.0-32.0 [facility] Mean corpuscular hemoglobin concentration (MCHC) determinationOrdered By: Nguyễn Al on 12-27-2024 MCHC (RBC) [Mass/Vol] 31.9 g/dL Low 32-36 [facility] Mean platelet volume determi nationOrdered By: Nguyễn Al on 12-27-2024 Platelet mean volume (Bld) [Entitic vol] 10.3 fL 6.2-12.0 [facility] Monocyte percentageOrdered B y: Nguyễn Al on 12-27-2024 Monocytes/100 WBC (Bld) 11.8 % High 0-10 [facility] Neutrophil percentageOrdered By: Nguyễn Al on 12-27-2024 Neutrophils/100 WBC (Bld) 68.5 % 47-70 [facility] Nucleated red blood cell per centageOrdered By: Nguyễn Al on 12-27-2024 Nucleated RBC/100 WBC (Bld) [Ratio] 0 % 0-5 [facility] Partial Thromboplast Timeon 12-27-2024 aPTT Coag (Bld) [Time] 28.4 s Normal 24.1-36.2 [facility] Comment on above: Performed By: #### L 100.0100, L300.4310, L500.2500, L300.3900 ####[facility] [address] [place], [address] Platelet countOrdered By: Shankar Al on 12-27-2024 Platelets (Bld) [#/Vol] 146 10*3/uL Low 150-450 [facility] Potassium measurement (mass/ volume)Ordered By: Nguyễn Al on 12-27-2024 Potassium (Unsp spec) [Mass/Vol] 3.7 mmol/L 3.3-5.1 [facility] Prothrombin Time w/INRon INR Coag (PPP) [Relative time] 1.2 {INR} Normal [facility] Comment on above: Performed By: #### L 100.0100, L300.4310, L500.2500, L300.3900 ####[facility] [address] [place], [address] PT Coag (PPP) [Time] 15.4 s High 11.7-14.9 [facility] Comment on above: Performed By: #### L 100.0100, L300.4310, L500.2500, L300.3900 ####[facility] [address] [place], [address] Prothrombin timeOrdered By: Nguyễn Al on 12-27-2024 PT Coag (PPP) [Time] 15.4 s High 11.7-14.9 [facility] RBC Auto (Bld) [#/Vol]Ordere d By: Nguyễn Al on 12-27-2024 RBC (Bld) [#/Vol] 5.02 10*6/uL 4.6-6.2 [facility] Serum creatinine measurement (mass/volume)Ordered By: Nguyễn Al on 12-27-2024 Creatinine [Mass/Vol] 0.79 mg/dL 0.70-1.20 [facility] Serum glucose measurement (m ass/volume)Ordered By: Nguyễn Al on 12-27-2024 Glucose [Mass/Vol] 167 mg/dL High 70-99 [facility] Serum or plasma calcium scott urement (mass/volume)Ordered By: Nguyễn Al on 12-27-2024 Calcium [Mass/Vol] 8.7 mg/dL 7.6-11.0 [facility] Serum or plasma urea nitroge n measurement (mass/volume)Ordered By: Nguyễn Al on 12-27-2024 Urea nitrogen [Mass/Vol] 9 mg/dL 4-19 [facility] Sodium levelOrdered By: Nguyễn Al on 12-27-2024 Sodium [Moles/Vol] 136 mmol/L 133-145 [facility] White blood cell (WBC) count Ordered By: Nguyễn Al on 12-27-2024 WBC (Bld) [#/Vol] 6.0 10*3/uL 4.4-11.0 [facility] .Auto Diffon 12-26-2024 Basophil, Absolute 0.0 10 3/mcL Normal 0.0-0.3 [facility] Comment on above: Performed By: #### C BC, MG, GFR, ADIFF, BMP, ANEU #### [address] [address] Basophils/100 WBC (Bld) 0.9 % Normal 0.0-2.5 [facility] Comment on above: Performed By: #### C BC, MG, GFR, ADIFF, BMP, ANEU #### [address] [address] Eosinophil, Absolute 0.1 10 3/mcL Normal 0.0-0.7 [facility] Comment on above: Performed By: #### C BC, MG, GFR, ADIFF, BMP, ANEU #### [address] [address] Eosinophils/100 WBC (Bld) 3.2 % Normal 0.0-6.0 [facility] Comment on above: Performed By: #### C BC, MG, GFR, ADIFF, BMP, ANEU #### [address] [address] Lymphocyte, Absolute 1.0 10 3/mcL Normal 0.9-4.3 [facility] Comment on above: Performed By: #### C BC, MG, GFR, ADIFF, BMP, ANEU #### [address] [address] Lymphocytes/100 WBC (Bld) 22.4 % Normal 20.0-40.0 [facility] Comment on above: Performed By: #### C BC, MG, GFR, ADIFF, BMP, ANEU #### [address] [address] Monocyte, Absolute 0.6 10 3/mcL Normal 0.1-1.4 [facility] Comment on above: Performed By: #### C BC, MG, GFR, ADIFF, BMP, ANEU #### [address] [address] Monocytes/100 WBC (Bld) 13.1 % High 2.0-13.0 [facility] Comment on above: Performed By: #### C BC, MG, GFR, ADIFF, BMP, ANEU #### [address] [address] Neutrophils/100 WBC (Bld) 60.4 % Normal 50.0-75.0 [facility] Comment on above: Performed By: #### C BC, MG, GFR, ADIFF, BMP, ANEU #### [place] [address] .GFRon 12-26-2024 Estimated Glomerular Filtration Rate 105 ml/min/1.73sqm Normal [facility] Comment on above: Result Comment: [...] BC, MG, GFR, ADIFF, BMP, ANEU #### [address] [address] .NEUABSon 12-26-2024 Neutrophil, Absolute 2.6 10 3/mcL Normal 2.3-8.1 [facility] Comment on above: Performed By: #### C BC, MG, GFR, ADIFF, BMP, ANEU #### [place] [address] BMPon 12-26-2024 BUN/Creatinine Ratio 7.4 ratio Low 10.0-22.0 [facility] Comment on above: Performed By: #### C BC, MG, GFR, ADIFF, BMP, ANEU #### [address] [address] Calcium [Mass/Vol] 9.1 mg/dL Normal 8.7-10.4 [facility] Comment on above: Performed By: #### C BC, MG, GFR, ADIFF, BMP, ANEU #### [address] [address] Chloride [Moles/Vol] 104 mmol/L Normal 98-110 [facility] Comment on above: Performed By: #### C BC, MG, GFR, ADIFF, BMP, ANEU #### [address] [address] CO2 [Moles/Vol] 28 mmol/L Normal 22-32 [facility] Comment on above: Performed By: #### C BC, MG, GFR, ADIFF, BMP, ANEU #### [address] [address] Creatinine [Mass/Vol] 0.81 mg/dL Normal 0.60-1.40 [facility] Comment on above: Result Comment: Test ing performed on [employer] analyzer using enzymatic creatinine methodology. Performed By: #### C BC, MG, GFR, ADIFF, BMP, ANEU #### [address] [address] Electrolyte Balance 8.0 mEq/L Normal 4.0-15.0 [facility] Comment on above: Performed By: #### C BC, MG, GFR, ADIFF, BMP, ANEU #### [address] [address] Glucose [Mass/Vol] 151 mg/dL High 70-110 [facility] Comment on above: Performed By: #### C BC, MG, GFR, ADIFF, BMP, ANEU #### [address] [address] Potassium [Moles/Vol] 4.1 mmol/L Normal 3.5-5.0 [facility] Comment on above: Performed By: #### C BC, MG, GFR, ADIFF, BMP, ANEU #### [place] [address] Sodium [Moles/Vol] 140 mmol/L Normal 136-145 [facility] Comment on above: Performed By: #### C BC, MG, GFR, ADIFF, BMP, ANEU #### [place] [address] Urea nitrogen [Mass/Vol] 6.0 mg/dL Low 8.0-22.0 [facility] Comment on above: Performed By: #### C BC, MG, GFR, ADIFF, BMP, ANEU #### [place] [address] CBCon 12-26-2024 Erythrocyte distribution width (RBC) [Ratio] 14.7 % Normal 11.5-15.5 [facility] Comment on above: Performed By: #### C BC, MG, GFR, ADIFF, BMP, ANEU #### [place] [address] Hematocrit (Bld) [Volume fraction] 40.7 % Normal 40.0-52.0 [facility] Comment on above: Performed By: #### C BC, MG, GFR, ADIFF, BMP, ANEU #### [place] [address] Hgb 13.2 G/dL Normal 13.0-17.5 [facility] Comment on above: Performed By: #### C BC, MG, GFR, ADIFF, BMP, ANEU #### [place] [address] MCH (RBC) [Entitic mass] 27.6 pg Normal 27.0-33.0 [facility] Comment on above: Performed By: #### C BC, MG, GFR, ADIFF, BMP, ANEU #### [place] [address] MCHC 32.3 G/dL Normal 32.0-36.0 [facility] Comment on above: Performed By: #### C BC, MG, GFR, ADIFF, BMP, ANEU #### [place] [address] MCV (RBC) [Entitic vol] 85.4 fL Normal 81.0-100.0 [facility] Comment on above: Performed By: #### C BC, MG, GFR, ADIFF, BMP, ANEU #### [place] [address] Platelet 148 10 3/mcL Low 150-450 [facility] Comment on above: Performed By: #### C BC, MG, GFR, ADIFF, BMP, ANEU #### [place] [address] Platelet mean volume (Bld) [Entitic vol] 8.2 fL Normal 6.4-10.5 [facility] Comment on above: Performed By: #### C BC, MG, GFR, ADIFF, BMP, ANEU #### [place] [address] RBC 4.77 10 6/mcL Normal 4.50-6.00 [facility] Comment on above: Performed By: #### C BC, MG, GFR, ADIFF, BMP, ANEU #### [place] [address] WBC 4.3 10 3/mcL Low 4.5-10.8 [facility] Comment on above: Performed By: #### C BC, MG, GFR, ADIFF, BMP, ANEU #### [place] [address] LABORATORYOrdered By: Armando domínguez on 12-26-2024 Glucose [Mass/Vol] 171 mg/dL High 70 - 110 mg/dL [facility] LABORATORYOrdered By: Jr Mac on 12-26-2024 Glucose [Mass/Vol] 167 mg/dL High 70 - 110 mg/dL [facility] Glucose [Mass/Vol] 121 mg/dL High 70 - 110 mg/dL [facility] LABORATORYOrdered By: SYSTEM SYSTEM on 12-26-2024 Basophils (Bld) [#/Vol] 0.0 103/mcL Normal 0.0 - 0.3 10^3/mcL Workflow SS Basophils/100 WBC (Bld) 0.9 % Normal 0.0 - 2.5 % Workflow SS Calcium [Mass/Vol] 9.1 mg/dL Normal 8.7 - 10. 4 mg/dL ADM SS Chloride [Moles/Vol] 104 mmol/L Normal 98 - 11 0 mEq/L ADM SS CO2 [Moles/Vol] 28 mmol/L Normal 22 - 32 mEq/L ADM SS Creatinine [Mass/Vol] 0.81 mg/dL Normal 0.60 - 1.40 mg/dL ADM SS Comment on above: Interpretive Data: T esting performed on [employer] analyzer using enzymatic creatinine methodology. Electrolyte Balance [...] 13.2 G/dL Normal 13.0 - 17.5 G/dL AH Workflow SS Lymphocytes (Bld) [#/Vol] 1.0 103/mcL Normal 0.9 - 4.3 10^3/mcL AH Workflow SS Lymphocytes/100 WBC (Bld) 22.4 % Normal 20.0 - 40.0 % AH [...] 4.3 103/mcL Low 4.5 - 10.8 10^3/mcL AH Workflow SS MGon 12-26-2024 Magnesium [Mass/Vol] 1.8 mg/dL Normal 1.6-2.4 [facility] Comment on above: Performed By: #### C BC, MG, GFR, ADIFF, BMP, ANEU #### [address] [address] .Auto Diffon 12-25-2024 Basophil, Absolute 0.0 10 3/mcL Normal 0.0-0.3 [facility] Comment on above: Performed By: #### A DIFF, ANEU, BMP, CBC, GFR #### [address] [address] Basophils/100 WBC (Bld) 0.6 % Normal 0.0-2.5 [facility] Comment on above: Performed By: #### A DIFF, ANEU, BMP, CBC, GFR #### [address] [address] Eosinophil, Absolute 0.1 10 3/mcL Normal 0.0-0.7 [facility] Comment on above: Performed By: #### A DIFF, ANEU, BMP, CBC, GFR #### [address] [address] Eosinophils/100 WBC (Bld) 2.2 % Normal 0.0-6.0 [facility] Comment on above: Performed By: #### A DIFF, ANEU, BMP, CBC, GFR #### [address] [address] Lymphocyte, Absolute 0.9 10 3/mcL Normal 0.9-4.3 [facility] Comment on above: Performed By: #### A DIFF, ANEU, BMP, CBC, GFR #### [address] [address] Lymphocytes/100 WBC (Bld) 14.1 % Low 20.0-40.0 [facility] Comment on above: Performed By: #### A DIFF, ANEU, BMP, CBC, GFR #### [address] [address] Monocyte, Absolute 0.5 10 3/mcL Normal 0.1-1.4 [facility] Comment on above: Performed By: #### A DIFF, ANEU, BMP, CBC, GFR #### [address] [address] Monocytes/100 WBC (Bld) 8.9 % Normal 2.0-13.0 [facility] Comment on above: Performed By: #### A DIFF, ANEU, BMP, CBC, GFR #### [address] [address] Neutrophils/100 WBC (Bld) 74.2 % Normal 50.0-75.0 [facility] Comment on above: Performed By: #### A DIFF, ANEU, BMP, CBC, GFR #### [address] [address] .GFRon 12-25-2024 Estimated Glomerular Filtration Rate 105 ml/min/1.73sqm Normal [facility] Comment on above: Result Comment: [...] A DIFF, ANEU, BMP, CBC, GFR #### [address] [address] .NEUABSon 12-25-2024 Neutrophil, Absolute 4.5 10 3/mcL Normal 2.3-8.1 [facility] Comment on above: Performed By: #### A DIFF, ANEU, BMP, CBC, GFR #### [address] [address] BMPon 12-25-2024 BUN/Creatinine Ratio 14.6 ratio Normal 10.0-22.0 [facility] Comment on above: Performed By: #### A DIFF, ANEU, BMP, CBC, GFR #### [address] [address] Calcium [Mass/Vol] 9.2 mg/dL Normal 8.7-10.4 [facility] Comment on above: Performed By: #### A DIFF, ANEU, BMP, CBC, GFR #### [address] [address] Chloride [Moles/Vol] 101 mmol/L Normal 98-110 [facility] Comment on above: Performed By: #### A DIFF, ANEU, BMP, CBC, GFR #### [address] [address] CO2 [Moles/Vol] 31 mmol/L Normal 22-32 [facility] Comment on above: Performed By: #### A DIFF, ANEU, BMP, CBC, GFR #### [address] [address] Creatinine [Mass/Vol] 0.82 mg/dL Normal 0.60-1.40 [facility] Comment on above: Result Comment: Test ing performed on [employer] analyzer using enzymatic creatinine methodology. Performed By: #### A DIFF, ANEU, BMP, CBC, GFR #### [address] [address] Electrolyte Balance 6.0 mEq/L Normal 4.0-15.0 [facility] Comment on above: Performed By: #### A DIFF, ANEU, BMP, CBC, GFR #### [address] [address] Glucose [Mass/Vol] 218 mg/dL High 70-110 [facility] Comment on above: Performed By: #### A DIFF, ANEU, BMP, CBC, GFR #### [address] [address] Potassium [Moles/Vol] 4.9 mmol/L Normal 3.5-5.0 [facility] Comment on above: Performed By: #### A DIFF, ANEU, BMP, CBC, GFR #### [address] [address] Sodium [Moles/Vol] 138 mmol/L Normal 136-145 [facility] Comment on above: Performed By: #### A DIFF, ANEU, BMP, CBC, GFR #### [place] [address] Urea nitrogen [Mass/Vol] 12.0 mg/dL Normal 8.0-22.0 [facility] Comment on above: Performed By: #### A DIFF, ANEU, BMP, CBC, GFR #### [place] [id number] CBCon 12-25-2024 Erythrocyte distribution width (RBC) [Ratio] 15.2 % Normal 11.5-15.5 [facility] Comment on above: Performed By: #### A DIFF, ANEU, BMP, CBC, GFR #### [place] [address] Hematocrit (Bld) [Volume fraction] 43.7 % Normal 40.0-52.0 [facility] Comment on above: Performed By: #### A DIFF, ANEU, BMP, CBC, GFR #### [place] [address] Hgb 14.1 G/dL Normal 13.0-17.5 [facility] Comment on above: Performed By: #### A DIFF, ANEU, BMP, CBC, GFR #### [place] [address] MCH (RBC) [Entitic mass] 27.3 pg Normal 27.0-33.0 [facility] Comment on above: Performed By: #### A DIFF, ANEU, BMP, CBC, GFR #### [place] [address] MCHC 32.3 G/dL Normal 32.0-36.0 [facility] Comment on above: Performed By: #### A DIFF, ANEU, BMP, CBC, GFR #### [place] [address] MCV (RBC) [Entitic vol] 84.6 fL Normal 81.0-100.0 [facility] Comment on above: Performed By: #### A DIFF, ANEU, BMP, CBC, GFR #### [place] [address] Platelet 136 10 3/mcL Low 150-450 [facility] Comment on above: Performed By: #### A DIFF, ANEU, BMP, CBC, GFR #### [place] [address] [place] [address] Platelet mean volume (Bld) [Entitic vol] 8.5 fL Normal 6.4-10.5 [facility] Comment on above: Performed By: #### A DIFF, ANEU, BMP, CBC, GFR #### [address] [address] RBC 5.16 10 6/mcL Normal 4.50-6.00 [facility] Comment on above: Performed By: #### A DIFF, ANEU, BMP, CBC, GFR #### [address] [address] WBC 6.1 10 3/mcL Normal 4.5-10.8 [facility] Comment on above: Performed By: #### A DIFF, ANEU, BMP, CBC, GFR #### [address] [address] LABORATORYOrdered By: Slime jaramillo on 12-25-2024 Blood Glucose Testing Reason Routine (12/25/24 4:14 PM) [facility] LABORATORYOrdered By: SYSTEM SYSTEM on 12-25-2024 Calcium [Mass/Vol] 9.2 mg/dL Normal 8.7 - 10. 4 mg/dL ADM SS Chloride [Moles/Vol] 101 mmol/L Normal 98 - 11 0 mEq/L ADM SS CO2 [Moles/Vol] 31 mmol/L Normal 22 - 32 mEq/L ADM SS Creatinine [Mass/Vol] 0.82 mg/dL Normal 0.60 - 1.40 mg/dL ADM SS Comment on above: Interpretive Data: T esting performed on [employer] analyzer using enzymatic creatinine methodology. Electrolyte Balance [...] - 10.8 10^3/mcL Workflow SS LABORATORYOrdered By: Nicole Trejo on 12-25-2024 LDose Vancomycin:(trough) See eMAR (12/25/24 12:33 PM) Normal Chemistry S LABORATORYOrdered By: Luisa Iqbal on 12-25-2024 Blood Glucose Testing Reason Routine (12/25/24 11:33 AM) [facility] LABORATORYOrdered By: Patricia Max on 12-25-2024 Blood Glucose Testing Reason Routine (12/25/24 7:30 AM) [facility] MGon 12-25-2024 Magnesium [Mass/Vol] 1.7 mg/dL Normal 1.6-2.4 [facility] Comment on above: Order Comment: QNS 14:03:01 EDT Performed By: #### A DIFF, ANEU, BMP, CBC, GFR #### [address] [address] No Panel Informationon 12-25 Microscopic examination of blood, culture Culture has been received in lab and is no growth to date. Routine cultures are held for 5 days. [facility] 12-25-2024 LDose Vancomycin:(trough) See eMAR Normal [facility] Comment on above: Performed By: #### C BC, MG, GFR, ADIFF, BMP, ANEU #### [address] [address] Vancomycin Tr 17.0 mcg/mL Normal 10.0-20.0 [facility] Comment on above: Performed By: #### C BC, MG, GFR, ADIFF, BMP, ANEU #### [address] [address] XR FLUORO 1-2 HRS TECH TIMEo n [...] 3:52:11 AM Ordering Provider: ANA LUISA Kate [facility] .Auto Diffon 12-24-2024 Basophil, Absolute 0.1 10 3/mcL Normal 0.0-0.3 [facility] Comment on above: Performed By: #### A DIFF, ANEU, BMP, CBC, GFR #### [address] [address] Basophils/100 WBC (Bld) 1.0 % Normal 0.0-2.5 [facility] Comment on above: Performed By: #### A DIFF, ANEU, BMP, CBC, GFR #### [address] [address] Eosinophil, Absolute 0.1 10 3/mcL Normal 0.0-0.7 [facility] Comment on above: Performed By: #### A DIFF, ANEU, BMP, CBC, GFR #### [address] [address] Eosinophils/100 WBC (Bld) 1.8 % Normal 0.0-6.0 [facility] Comment on above: Performed By: #### A DIFF, ANEU, BMP, CBC, GFR #### [address] [address] Lymphocyte, Absolute 0.9 10 3/mcL Normal 0.9-4.3 [facility] Comment on above: Performed By: #### A DIFF, ANEU, BMP, CBC, GFR #### [address] [address] Lymphocytes/100 WBC (Bld) 11.7 % Low 20.0-40.0 [facility] Comment on above: Performed By: #### A DIFF, ANEU, BMP, CBC, GFR #### [address] [address] Monocyte, Absolute 1.0 10 3/mcL Normal 0.1-1.4 [facility] Comment on above: Performed By: #### A DIFF, ANEU, BMP, CBC, GFR #### [address] [address] Monocytes/100 WBC (Bld) 12.9 % Normal 2.0-13.0 [facility] Comment on above: Performed By: #### A DIFF, ANEU, BMP, CBC, GFR #### [address] [address] Neutrophils/100 WBC (Bld) 72.6 % Normal 50.0-75.0 [facility] Comment on above: Performed By: #### A DIFF, ANEU, BMP, CBC, GFR #### [address] [address] .GFRon 12-24-2024 Estimated Glomerular Filtration Rate 92 ml/min/1.73sqm [facility] Comment on above: Result Comment: Stages [...] A DIFF, ANEU, BMP, CBC, GFR #### [address] [address] Estimated Glomerular Filtration Rate 92 ml/min/1.73sqm [facility] Comment on above: Result Comment: Stages [...] BC, MG, GFR, ADIFF, BMP, ANEU #### [address] [address] .NEUABSon 12-24-2024 Neutrophil, Absolute 5.4 10 3/mcL Normal 2.3-8.1 [facility] Comment on above: Performed By: #### A DIFF, ANEU, BMP, CBC, GFR #### [address] [address] BMPon 12-24-2024 BUN/Creatinine Ratio 11.2 ratio Normal 10.0-22.0 [facility] Comment on above: Performed By: #### A DIFF, ANEU, BMP, CBC, GFR #### [place] [id number] Calcium [Mass/Vol] 9.2 mg/dL Normal 8.7-10.4 [facility] Comment on above: Performed By: #### A DIFF, ANEU, BMP, CBC, GFR #### [place] [id number] Chloride [Moles/Vol] 97 mmol/L Low 98-110 [facility] Comment on above: Performed By: #### A DIFF, ANEU, BMP, CBC, GFR #### [place] [address] CO2 [Moles/Vol] 32 mmol/L Normal 22-32 [facility] Comment on above: Performed By: #### A DIFF, ANEU, BMP, CBC, GFR #### [place] [address] Creatinine [Mass/Vol] 0.98 mg/dL Normal 0.60-1.40 [facility] Comment on above: Result Comment: Test ing performed on [employer] analyzer using enzymatic creatinine methodology. Performed By: #### A DIFF, ANEU, BMP, CBC, GFR #### [place] [address] Electrolyte Balance 8.0 mEq/L Normal 4.0-15.0 [facility] Comment on above: Performed By: #### A DIFF, ANEU, BMP, CBC, GFR #### [place] [id number] Glucose [Mass/Vol] 118 mg/dL High 70-110 [facility] Comment on above: Performed By: #### A DIFF, ANEU, BMP, CBC, GFR #### [address] [address] Potassium [Moles/Vol] 3.7 mmol/L Normal 3.5-5.0 [facility] Comment on above: Performed By: #### A DIFF, ANEU, BMP, CBC, GFR #### [address] [address] Sodium [Moles/Vol] 137 mmol/L Normal 136-145 [facility] Comment on above: Performed By: #### A DIFF, ANEU, BMP, CBC, GFR #### [address] [address] Urea nitrogen [Mass/Vol] 11.0 mg/dL Normal 8.0-22.0 [facility] Comment on above: Performed By: #### A DIFF, ANEU, BMP, CBC, GFR #### [place] [id number] BUN/Creatinine Ratio 11.2 ratio Normal 10.0-22.0 [facility] Comment on above: Performed By: #### C BC, MG, GFR, ADIFF, BMP, ANEU #### [address] [address] Calcium [Mass/Vol] 9.3 mg/dL Normal 8.7-10.4 [facility] Comment on above: Performed By: #### C BC, MG, GFR, ADIFF, BMP, ANEU #### [address] [address] Chloride [Moles/Vol] 99 mmol/L Normal 98-110 [facility] Comment on above: Performed By: #### C BC, MG, GFR, ADIFF, BMP, ANEU #### [address] [address] CO2 [Moles/Vol] 31 mmol/L Normal 22-32 [facility] Comment on above: Performed By: #### C BC, MG, GFR, ADIFF, BMP, ANEU #### [address] [address] Creatinine [Mass/Vol] 0.98 mg/dL Normal 0.60-1.40 [facility] Comment on above: Result Comment: Test ing performed on [employer] analyzer using enzymatic creatinine methodology. Performed By: #### C BC, MG, GFR, ADIFF, BMP, ANEU #### [place] [address] Electrolyte Balance 3.0 mEq/L Low 4.0-15.0 [facility] Comment on above: Performed By: #### C BC, MG, GFR, ADIFF, BMP, ANEU #### [place] [address] Glucose [Mass/Vol] 100 mg/dL Normal 70-110 [facility] Comment on above: Performed By: #### C BC, MG, GFR, ADIFF, BMP, ANEU #### [place] [address] Potassium [Moles/Vol] 4.8 mmol/L Normal 3.5-5.0 [facility] Comment on above: Performed By: #### C BC, MG, GFR, ADIFF, BMP, ANEU #### [place] [address] Sodium [Moles/Vol] 133 mmol/L Low 136-145 [facility] Comment on above: Performed By: #### C BC, MG, GFR, ADIFF, BMP, ANEU #### [place] [address] Urea nitrogen [Mass/Vol] 11.0 mg/dL Normal 8.0-22.0 [facility] Comment on above: Performed By: #### C BC, MG, GFR, ADIFF, BMP, ANEU #### [place] [address] CBCon 12-24-2024 Erythrocyte distribution width (RBC) [Ratio] 15.0 % Normal 11.5-15.5 [facility] Comment on above: Performed By: #### A DIFF, ANEU, BMP, CBC, GFR #### [facility] [address] [place], [place] [address] Hematocrit (Bld) [Volume fraction] 44.1 % Normal 40.0-52.0 [facility] Comment on above: Performed By: #### A DIFF, ANEU, BMP, CBC, GFR #### [address] [address] Hgb 14.3 G/dL Normal 13.0-17.5 [facility] Comment on above: Performed By: #### A DIFF, ANEU, BMP, CBC, GFR #### [place] [id number] MCH (RBC) [Entitic mass] 27.3 pg Normal 27.0-33.0 [facility] Comment on above: Performed By: #### A DIFF, ANEU, BMP, CBC, GFR #### [place] [id number] MCHC 32.3 G/dL Normal 32.0-36.0 [facility] Comment on above: Performed By: #### A DIFF, ANEU, BMP, CBC, GFR #### [place] [id number] MCV (RBC) [Entitic vol] 84.4 fL Normal 81.0-100.0 [facility] Comment on above: Performed By: #### A DIFF, ANEU, BMP, CBC, GFR #### [place] [id number] Platelet 140 10 3/mcL Low 150-450 [facility] Comment on above: Result Comment: Plat elet results confirmed. Specimen was checked for clot Performed By: #### A DIFF, ANEU, BMP, CBC, GFR #### [place] [id number] Platelet mean volume (Bld) [Entitic vol] 8.8 fL Normal 6.4-10.5 [facility] Comment on above: Performed By: #### A DIFF, ANEU, BMP, CBC, GFR #### [place] [id number] RBC 5.23 10 6/mcL Normal 4.50-6.00 [facility] Comment on above: Performed By: #### A DIFF, ANEU, BMP, CBC, GFR #### [facility] [address] [place] [address] WBC 7.5 10 3/mcL Normal 4.5-10.8 [facility] Comment on above: Performed By: #### A DIFF, ANEU, BMP, CBC, GFR #### [facility] [address] [place] [address] Comprehensive Metabolic Prof ilon 12-24-2024 ALB Normal 3.5-5.0 [facility] Comment on above: Order Comment: 314.2 Result Comment: [facility] Performed By: #### L [id number] ####[facility] [address] [place], [address] ALK PHOS Normal 40-129 [facility] Comment on above: Order Comment: 314.2 Result Comment: [facility] Performed By: #### L [id number] ####[facility] [address] [place], [address] ALT Normal <=46 [facility] Comment on above: Order Comment: 314.2 Result Comment: [facility] Performed By: #### L [id number] ####[facility] [address] [place], [address] AST Normal <=37 [facility] Comment on above: Order Comment: 314.2 Result Comment: [facility] Performed By: #### L [id number] ####[facility] [address] [place], [address] BUN Normal 4-19 [facility] Comment on above: Order Comment: 314.2 Result Comment: [facility] Performed By: #### L [id number] ####[facility] [address] [place], [address] BUN/CRE Normal 10-20 [facility] Comment on above: Order Comment: 314.2 Result Comment: [facility] Performed By: #### L [id number] ####[facility] [address] [place], [address] Calcium Normal 7.6-11.0 [facility] Comment on above: Order Comment: 314.2 Result Comment: [facility] Performed By: #### L [id number] ####[facility] [address] [place], [address] CL Normal 98-108 [facility] Comment on above: Order Comment: 314.2 Result Comment: [facility] Performed By: #### L [id number] ####[facility] [address] [place], [address] CO2 Normal 21.0-32.0 [facility] Comment on above: Order Comment: 314.2 Result Comment: [facility] Performed By: #### L [id number] ####[facility] [address] [place], [address] CREAT,SERUM Normal 0.70-1.20 [facility] Comment on above: Order Comment: 314.2 Result Comment: [facility] Performed By: #### L [id number] ####[facility] [address] [place], [address] eGFR Normal >60 [facility] Comment on above: Order Comment: 314.2 Result Comment: [facility] Performed By: #### L [id number] ####[facility] [address] [place], [address] GAP Normal 5-15 [facility] Comment on above: Order Comment: 314.2 Result Comment: [facility] Performed By: #### L [id number] ####[facility] [address] [place], [address] GLU Normal 70-99 [facility] Comment on above: Order Comment: 314.2 Result Comment: [facility] Performed By: #### L [id number] ####[facility] [address] [place], [address] Potassium Normal 3.3-5.1 [facility] Comment on above: Order Comment: 314.2 Result Comment: [facility] Performed By: #### L [id number] ####[facility] [address] [place], [address] T BILI Normal 0.00-1.30 [facility] Comment on above: Order Comment: 314.2 Result Comment: [facility] Performed By: #### L [id number] ####[facility] [address] [place], [address] T PROT Normal 5.9-8.4 [facility] Comment on above: Order Comment: 314.2 Result Comment: [facility] Performed By: #### L [id number] ####[facility] [address] [place], [address] Comprehensive Metabolic Profil Normal 133-145 [facility] Comment on above: Order Comment: 314.2 Result Comment: [facility] Performed By: #### L 500.4050 ####[facility] [address] [place], [address] LABORATORYOrdered By: SYSTEM SYSTEM on 12-24-2024 Basophils [...] - 32 mEq/L ADM SS Creatinine [Mass/Vol] 0.98 mg/dL Normal 0.60 - 1.40 mg/dL ADM SS Comment on above: Interpretive Data: T esting performed on [employer] analyzer using enzymatic creatinine methodology. Electrolyte Balance 8.0 mEq/L Normal 4.0 - 15 .0 mEq/L ADM SS Eosinophils (Bld) [#/Vol] 0.1 103/mcL Normal 0.0 - 0.7 10^3/mcL Workflow SS Eosinophils/100 WBC (Bld) 1.8 % Normal 0.0 - 6.0 % Workflow SS Erythrocyte distribution width (RBC) [Ratio] 15.0 % Normal 11.5 - 15.5 % Workflow SS Estimated Glomerular Filtration Rate 92 ml/min/1.73sqm Invalid Interpretation Code ADM SS Comment [...] AH Workflow SS MCV (RBC) [Entitic vol] 84.4 fL Normal 81.0 - 100.0 fL AH Workflow SS Monocytes (Bld) [#/Vol] 1.0 103/mcL Normal 0.1 - 1.4 10^3/mcL AH Workflow SS Monocytes/100 WBC (Bld) 12.9 % Normal 2.0 - 13.0 % AH Workflow SS Neutrophils (Bld) [#/Vol] 5.4 103/mcL [...] Comment on above: Interpretive Data: Baljinder linn [employer] (CHEST, 1992, 102:312S-25S) [...] 145 mEq/L ADM SS Urea nitrogen [Mass/Vol] 11.0 mg/dL Normal 8.0 - 22.0 mg/dL ADM SS Urea nitrogen/Creatinine [Mass ratio] 11.2 ratio Normal 10.0 - 22.0 ratio AH ADM SS WBC (Bld) [#/Vol] 7.5 103/mcL Normal 4.5 - 10.8 10^3/mcL AH Workflow SS MGon 12-24-2024 Magnesium [Mass/Vol] 1.9 mg/dL Normal 1.6-2.4 [facility] Comment on above: Performed By: #### A DIFF, ANEU, BMP, CBC, GFR #### [address] [address] No Panel Informationon 12-24 Microscopic examination of blood, culture Culture has been received in lab and is no growth to date. Routine cultures are held for 5 days. [facility] PROon 12-24-2024 INR Coag (PPP) [Relative time] 1.2 {INR} Normal [facility] Comment on above: Result Comment: [employer] (CHEST, 1992, 102:312S-25S) recommended therapeutic range for oral anticoagulant therapy is: LOW RISK: Prophylaxis of venous thrombosis INR: 2.0-3.0 Treatment of pulmonary embolism 2.0-3.0 Prevention of systemic embolism 2.0-3.0 HIGH RISK: Mechanical prosthetic valves 2.5-3.5 Performed By: #### A DIFF, ANEU, BMP, CBC, GFR #### [address] [address] PT Coag (PPP) [Time] 13.8 s Normal 9.0-14.4 [facility] Comment on above: Result Comment: Effe ctive 12/11/07, Protime results may be affected by some antibiotics (i.e. Ciprofloxacin, Azithromycin, Bactrim) which may potentiate the action of oral anticoagulants, with further increases in Protime/INR. Performed By: #### A DIFF, ANEU, BMP, CBC, GFR #### [place] [address] [place] [address] .Auto Diffon 12-23-2024 Basophil, Absolute 0.1 10 3/mcL Normal 0.0-0.3 [facility] Comment on above: Performed By: #### C BC, MG, GFR, ADIFF, BMP, ANEU #### [address] [address] Basophils/100 WBC (Bld) 0.8 % Normal 0.0-2.5 [facility] Comment on above: Performed By: #### C BC, MG, GFR, ADIFF, BMP, ANEU #### [address] [address] Eosinophil, Absolute 0.2 10 3/mcL Normal 0.0-0.7 [facility] Comment on above: Performed By: #### C BC, MG, GFR, ADIFF, BMP, ANEU #### [address] [address] Eosinophils/100 WBC (Bld) 1.9 % Normal 0.0-6.0 [facility] Comment on above: Performed By: #### C BC, MG, GFR, ADIFF, BMP, ANEU #### [address] [address] Lymphocyte, Absolute 1.2 10 3/mcL Normal 0.9-4.3 [facility] Comment on above: Performed By: #### C BC, MG, GFR, ADIFF, BMP, ANEU #### [address] [address] Lymphocytes/100 WBC (Bld) 13.9 % Low 20.0-40.0 [facility] Comment on above: Performed By: #### C BC, MG, GFR, ADIFF, BMP, ANEU #### [address] [address] Monocyte, Absolute 1.1 10 3/mcL Normal 0.1-1.4 [facility] Comment on above: Performed By: #### C BC, MG, GFR, ADIFF, BMP, ANEU #### [address] [address] Monocytes/100 WBC (Bld) 12.5 % Normal 2.0-13.0 [facility] Comment on above: Performed By: #### C BC, MG, GFR, ADIFF, BMP, ANEU #### [address] [address] Neutrophils/100 WBC (Bld) 70.9 % Normal 50.0-75.0 [facility] Comment on above: Performed By: #### C BC, MG, GFR, ADIFF, BMP, ANEU #### [address] [address] .MDWon 12-23-2024 Monocyte Distribution Width 21.10 High 0.00-20.00 [facility] Comment on above: Result Comment: For adults in ED, MDW>20.0 may be associated with a higher risk of sepsis during the first 12hrs of hospital admission Performed By: #### C BC, MG, GFR, ADIFF, BMP, ANEU #### [address] [address] .NEUABSon 12-23-2024 Neutrophil, Absolute 6.0 10 3/mcL Normal 2.3-8.1 [facility] Comment on above: Performed By: #### C BC, MG, GFR, ADIFF, BMP, ANEU #### [address] [address] ABO/Rh (Gel)on 12-23-2024 ABO/Rh Interp Positive Invalid Interpretation Code [facility] Comment on above: Performed By: #### C BC, MG, GFR, ADIFF, BMP, ANEU #### [address] [address] ABS (Gel)on 12-23-2024 ABSC Interp (Gel) Negative Normal [facility] Comment on above: Performed By: #### C BC, MG, GFR, ADIFF, BMP, ANEU #### [address] [address] CBCon 12-23-2024 Erythrocyte distribution width (RBC) [Ratio] 15.1 % Normal 11.5-15.5 [facility] Comment on above: Performed By: #### C BC, MG, GFR, ADIFF, BMP, ANEU #### [facility] [address] [place], [place] [address] Hematocrit (Bld) [Volume fraction] 47.5 % Normal 40.0-52.0 [facility] Comment on above: Performed By: #### C BC, MG, GFR, ADIFF, BMP, ANEU #### [address] [address] Hgb 15.5 G/dL Normal 13.0-17.5 [facility] Comment on above: Performed By: #### C BC, MG, GFR, ADIFF, BMP, ANEU #### [place] [address] MCH (RBC) [Entitic mass] 27.7 pg Normal 27.0-33.0 [facility] Comment on above: Performed By: #### C BC, MG, GFR, ADIFF, BMP, ANEU #### [place] [address] MCHC 32.5 G/dL Normal 32.0-36.0 [facility] Comment on above: Performed By: #### C BC, MG, GFR, ADIFF, BMP, ANEU #### [place] [address] MCV (RBC) [Entitic vol] 85.0 fL Normal 81.0-100.0 [facility] Comment on above: Performed By: #### C BC, MG, GFR, ADIFF, BMP, ANEU #### [place] [address] Platelet 223 10 3/mcL Normal 150-450 [facility] Comment on above: Performed By: #### C BC, MG, GFR, ADIFF, BMP, ANEU #### [place] [address] Platelet mean volume (Bld) [Entitic vol] 8.0 fL Normal 6.4-10.5 [facility] Comment on above: Performed By: #### C BC, MG, GFR, ADIFF, BMP, ANEU #### [place] [id number] RBC 5.59 10 6/mcL Normal 4.50-6.00 [facility] Comment on above: Performed By: #### C BC, MG, GFR, ADIFF, BMP, ANEU #### [place] [address] [place] [address] WBC 8.5 10 3/mcL Normal 4.5-10.8 [facility] Comment on above: Performed By: #### C BC, MG, GFR, ADIFF, BMP, ANEU #### [place] [address] [place] [address] LABORATORYOrdered By: Suze Amaya on 12-23-2024 ABO [...] Lactic Acid Lvl 1.0 mmol/L Normal 0.5-2.2 [facility] Comment on above: Performed By: #### C BC, MG, GFR, ADIFF, BMP, ANEU #### [address] [address] No Panel Informationon 12-23 Microscopic examination of blood, culture Culture has been received in lab and is no growth to date. Routine cultures are held for 5 days. [facility] Microscopic examination of blood, culture Culture has been received in lab and is no growth to date. Routine cultures are held for 5 days. [facility] XR ANKLE MINIMUM 3 VIEWS LEF [...] resident's findings and interpretation. Interpreted by: Trace Clark Preliminary Report By: Guerda Louie Electronically signed By Trace Clark Dictated Date: 12/23/2024 9:50:21 PM Prelim Date: 12/23/2024 9:53:23 PM Sign Date: 12/23/2024 9:57:26 PM Ordering Provider: FARZAD GIL [facility] XR ANKLE MINIMUM 3 VIEWS RIG on 12-23-2024 XR ANKLE MINIMUM 3 VIEWS RIGHT [...] 12/23/2024 10:04:30 PM Ordering Provider: FARZAD GIL [facility] MA[facility] Absolute lymphocyte countOrd ered By: Yaz Dee on 12-21-2024 Lymphocytes Auto (Unsp spec) [#/Vol] 1.12 10*3/uL 0.83-4.51 [facility] Absolute neutrophil countOrd ered By: Yaz Dee on 12-21-2024 Neutrophils (Bld) [#/Vol] 5.1 10*3/uL 2.0-7.7 [facility] Anion gap in Serum or Plasma Ordered By: Yaz Dee on 12-21-2024 Anion gap [Moles/Vol] 10 mmol/L 5- [facility] Automated lymphocyte count a s percentage of total leukocytesOrdered By: Yaz Dee on 12-21-2024 Lymphocytes/100 WBC Auto (Unsp spec) 15.1 % Low - [facility] BUN/creatinine ratioOrdered By: Yaz Dee on 12-21-2024 Urea nitrogen/Creatinine [Mass ratio] 13.8 mg/mg 03-17 [facility] Basic Metabolic Profile (BMP )on 12-21-2024 BUN/CRE 13.8 RATIO Normal - [facility] Comment on above: Performed By: #### L 500.2500, L100.0100 ####[facility] [address] [place], [address] Calcium [Mass/Vol] 9.2 mg/dL Normal 7.6-11.0 [facility] Comment on above: Performed By: #### L 500.2500, L100.0100 ####[facility] [address] [place], [address] Chloride [Moles/Vol] 101 mmol/L Normal 98-108 [facility] Comment on above: Performed By: #### L 500.2500, L100.0100 ####[facility] [address] [place], [address] CO2 [Moles/Vol] 29.1 mmol/L Normal 21.0-32.0 [facility] Comment on above: Performed By: #### L 500.2500, L100.0100 ####[facility] [address] [place], [address] Creatinine [Mass/Vol] 0.86 mg/dL Normal 0.70-1.20 [facility] Comment on above: Performed By: #### L 500.2500, L100.0100 ####[facility] [address] [place], [address] ECRCL 138.62 ml/min Normal 50-250 [facility] Comment on above: Performed By: #### L 500.2500, L100.0100 ####[facility] [address] [place], [address] GAP 10 Normal 5-15 [facility] Comment on above: Performed By: #### L 500.2500, L100.0100 ####[facility] [address] [place], [address] GFR/1.73 sq M.predicted among non-blacks MDRD (S/P/Bld) [Vol rate/Area] 103 mL/min/{1.73_m2} Normal >60 [facility] Comment on above: Result Comment: mL/m in/1.73m2 CKD-EPI Creatinine Equation (2020) Performed By: #### L 500.2500, L100.0100 ####[facility] [address] [place], [address] Glucose [Mass/Vol] 126 mg/dL High 70-99 [facility] Comment on above: Performed By: #### L 500.2500, L100.0100 ####[facility] [address] [place], [address] Potassium [Moles/Vol] 4.5 mmol/L Normal 3.3-5.1 [facility] Comment on above: Result Comment: Hemo lysis present, Results??could be affected.?? Performed By: #### L 500.2500, L100.0100 ####[facility] [address] [place], [address] Sodium [Moles/Vol] 140 mmol/L Normal 133-145 [facility] Comment on above: Performed By: #### L 500.2500, L100.0100 ####[facility] [address] [place], [address] Urea nitrogen [Mass/Vol] 12 mg/dL Normal 4-19 [facility] Comment on above: Performed By: #### L 500.2500, L100.0100 ####[facility] [address] [place], [address] Basophil percentageOrdered B y: Yaz Dee on 12-21-2024 Basophils/100 WBC (Bld) 0.5 % 0-1 [facility] Bedside Glucoseon 12-21-2024 FINGERSTICK GLU 171 mg/dL High 74-106 [facility] Comment on above: Result Comment: STEPHANIE GEMENT OF PATIENT CARE PER NURSING PROTOCOL Performed By: #### L 501.080 ####[facility] [address] [place], [address] FINGERSTICK GLU 99 mg/dL Normal 74-106 [facility] Comment on above: Result Comment: STEPHANIE GEMENT OF PATIENT CARE PER NURSING PROTOCOL Performed By: #### L 501.080 ####[facility] [address] [place], [address] CBC W/Diff, Automatedon 07-2 Absolute Lymph 1.12 X10 3/uL Normal 0.83-4.51 [facility] Comment on above: Performed By: #### L 500.2500, L100.0100 ####[facility] [address] [place], [address] Absolute Neut 5.1 X10 3/uL Normal 2.0-7.7 [facility] Comment on above: Performed By: #### L 500.2500, L100.0100 ####[facility] [address] [place], [address] Basophils/100 WBC (Bld) 0.5 % Normal 0-1 [facility] Comment on above: Performed By: #### L 500.2500, L100.0100 ####[facility] [address] [place], [address] Eosinophils/100 WBC (Bld) 1.9 % Normal 0-5 [facility] Comment on above: Performed By: #### L 500.2500, L100.0100 ####[facility] [address] [place], [address] Erythrocyte distribution width (RBC) [Ratio] 13.8 % Normal 11.6-14.6 [facility] Comment on above: Performed By: #### L 500.2500, L100.0100 ####[facility] [address] [place], [address] Hematocrit (Bld) [Volume fraction] 45.3 % Normal 40-54 [facility] Comment on above: Performed By: #### L 500.2500, L100.0100 ####[facility] [address] [place], [address] Hemoglobin (Bld) [Mass/Vol] 14.2 g/dL Normal 13.0-16.5 [facility] Comment on above: Performed By: #### L 500.2500, L100.0100 ####[facility] [address] [place], [address] IG% 0.300 Normal 0.0-0.9 [facility] Comment on above: Result Comment: IG% - Immature Granulocytes (promyelocytes, myelocytes andmetamyelocytes) > 1% indicates that a LEFT SHIFT is Present. Performed By: #### L 500.2500, L100.0100 ####[facility] [address] [place], [address] Lymphocytes/100 WBC (Bld) 15.1 % Low 19-41 [facility] Comment on above: Performed By: #### L 500.2500, L100.0100 ####[facility] [address] [place], [address] MCH (RBC) [Entitic mass] 27.2 pg Normal 27.0-32.0 [facility] Comment on above: Performed By: #### L 500.2500, L100.0100 ####[facility] [address] [place], [address] MCHC (RBC) [Mass/Vol] 31.3 g/dL Low 32-36 [facility] Comment on above: Performed By: #### L 500.2500, L100.0100 ####[facility] [address] [place], [address] MCV (RBC) [Entitic vol] 86.6 fL Normal 80-94 [facility] Comment on above: Performed By: #### L 500.2500, L100.0100 ####[facility] [address] [place], [address] Monocytes/100 WBC (Bld) 13.4 % High 0-10 [facility] Comment on above: Performed By: #### L 500.2500, L100.0100 ####[facility] [address] [place], [address] Neutrophils/100 WBC (Bld) 68.8 % Normal 47-70 [facility] Comment on above: Performed By: #### L 500.2500, L100.0100 ####[facility] [address] [place], [address] Nucleated RBC (Bld) [#/Vol] 0 10*3/uL Normal 0-5 [facility] Comment on above: Performed By: #### L 500.2500, L100.0100 ####[facility] [address] [place], [address] Platelet mean volume (Bld) [Entitic vol] 9.8 fL Normal 6.2-12.0 [facility] Comment on above: Performed By: #### L 500.2500, L100.0100 ####[facility] [address] [place], [address] Platelets (Bld) [#/Vol] 191 10*3/uL Normal 150-450 [facility] Comment on above: Performed By: #### L 500.2500, L100.0100 ####[facility] [address] [place], [address] RBC (Bld) [#/Vol] 5.23 10*6/uL Normal 4.6-6.2 [facility] Comment on above: Performed By: #### L 500.2500, L100.0100 ####[facility] [address] [place], [address] RDW SD 43.9 fl Normal 35.1-43.9 [facility] Comment on above: Performed By: #### L 500.2500, L100.0100 ####[facility] [address] [place], [address] WBC (Bld) [#/Vol] 7.4 10*3/uL Normal 4.4-11.0 [facility] Comment on above: Performed By: #### L 500.2500, L100.0100 ####[facility] [address] [place], [address] Carbon dioxide, total [Moles /volume] in Central venous bloodOrdered By: Yaz Dee on 12-21-2024 CO2 [Moles/Vol] 29.1 mmol/L 21.0-32.0 [facility] Chloride assayOrdered By: Yamilka Dee on 12-21-2024 Chloride [Moles/Vol] 101 mmol/L 98-108 [facility] Eosinophil percentageOrdered By: Yaz Dee on 12-21-2024 Eosinophils/100 WBC (Bld) 1.9 % 0-5 [facility] Erythrocyte distribution wid th ratioOrdered By: Yaz Dee on 12-21-2024 Erythrocyte distribution width (RBC) [Ratio] 13.8 % 11.6-14.6 [facility] Erythrocyte distribution wid th standard deviationOrdered By: Yaz Dee on 12-21-2024 Erythrocyte distribution width (RBC) [Ratio] 43.9 fl 35.1-43.9 [facility] Glomerular filtration rate ( GFR) estimation/1.73 sq m using serum, plasma, or whole bOrdered By: Yaz Dee on 12-21-2024 GFR/1.73 sq M.predicted among non-blacks MDRD (S/P/Bld) [Vol rate/Area] 103 mL/min/{1.73_m2} >60 [facility] Comment on above: mL/min/1.73m2 CKD-EP I Creatinine Equation (2020) [facility] deOrdered By: Farzad Camilo on 12-21-2024 Glucose [Mass/Vol] 171 mg/dL High 74-106 [facility] Comment on above: MANAGEMENT OF PATIEN T CARE PER NURSING PROTOCOL Hematocrit Auto (Bld) [Volum e fraction]Ordered By: Yaz Dee on 12-21-2024 Hematocrit (Bld) [Volume fraction] 45.3 % 40-54 [facility] Hemoglobin measurementOrdere d By: Yaz Dee on 12-21-2024 Hemoglobin (Bld) [Mass/Vol] 14.2 g/dL 13.0-16.5 [facility] Immature granulocytes/100 WB C Auto (Bld)Ordered By: Yaz Dee on 12-21-2024 Immature granulocytes/100 WBC (Bld) 0.300 % 0.0-0.9 [facility] Comment on above: IG% - Immature Granu locytes (promyelocytes, myelocytes and metamyelocytes) > 1% indicates that a LEFT SHIFT is Present. MCV (mean corpuscular volume ) determinationOrdered By: Yaz Dee on 12-21-2024 MCV (RBC) [Entitic vol] 86.6 fL 80-94 [facility] Mean corpuscular hemoglobin (MCH) determinationOrdered By: Yaz Dee on 12-21-2024 MCH (RBC) [Entitic mass] 27.2 pg 27.0-32.0 [facility] Mean corpuscular hemoglobin concentration (MCHC) determinationOrdered By: Yaz Dee on 12-21-2024 MCHC (RBC) [Mass/Vol] 31.3 g/dL Low 32-36 [facility] Mean platelet volume determi nationOrdered By: Yaz Dee on 12-21-2024 Platelet mean volume (Bld) [Entitic vol] 9.8 fL 6.2-12.0 [facility] Monocyte percentageOrdered B y: Yaz Dee on 12-21-2024 Monocytes/100 WBC (Bld) 13.4 % High 0-10 [facility] Neutrophil percentageOrdered By: Yaz Dee on 12-21-2024 Neutrophils/100 WBC (Bld) 68.8 % 47-70 [facility] Nucleated red blood cell per centageOrdered By: Yaz Dee on 12-21-2024 Nucleated RBC/100 WBC (Bld) [Ratio] 0 % 0-5 [facility] Platelet countOrdered By: Yamilka Dee on 12-21-2024 Platelets (Bld) [#/Vol] 191 10*3/uL 150-450 [facility] Potassium measurement (mass/ volume)Ordered By: Yaz Dee on 12-21-2024 Potassium (Unsp spec) [Mass/Vol] 4.5 mmol/L 3.3-5.1 [facility] Comment on above: Hemolysis present, R esults could be affected. RBC Auto (Bld) [#/Vol]Ordere d By: Yaz Dee on 12-21-2024 RBC (Bld) [#/Vol] 5.23 10*6/uL 4.6-6.2 [facility] Serum creatinine measurement (mass/volume)Ordered By: Yaz Dee on 12-21-2024 Creatinine [Mass/Vol] 0.86 mg/dL 0.70-1.20 [facility] Serum glucose measurement (m ass/volume)Ordered By: Yaz Dee on 12-21-2024 Glucose [Mass/Vol] 126 mg/dL High 70-99 [facility] Serum or plasma calcium scott urement (mass/volume)Ordered By: Yaz Dee on 12-21-2024 Calcium [Mass/Vol] 9.2 mg/dL 7.6-11.0 [facility] Serum or plasma urea nitroge n measurement (mass/volume)Ordered By: Yaz Dee on 12-21-2024 Urea nitrogen [Mass/Vol] 12 mg/dL 4-19 [facility] Sodium levelOrdered By: Unique Dee on 12-21-2024 Sodium [Moles/Vol] 140 mmol/L 133-145 [facility] White blood cell (WBC) count Ordered By: Yaz Dee on 12-21-2024 WBC (Bld) [#/Vol] 7.4 10*3/uL 4.4-11.0 [facility] Absolute lymphocyte countOrd ered By: Robles Botello on 12-20-2024 Lymphocytes Auto (Unsp spec) [#/Vol] 0.89 10*3/uL 0.83-4.51 [facility] Absolute neutrophil countOrd ered By: Robles Botello on 12-20-2024 Neutrophils (Bld) [#/Vol] 6.4 10*3/uL 2.0-7.7 [facility] Anion gap in Serum or Plasma Ordered By: Robles Botello on 12-20-2024 Anion gap [Moles/Vol] 10 mmol/L 5-15 [facility] Automated lymphocyte count a s percentage of total leukocytesOrdered By: Robles Botello on 12-20-2024 Lymphocytes/100 WBC Auto (Unsp spec) 10.6 % Low 19-41 [facility] BUN/creatinine ratioOrdered By: Robles Botello on 12-20-2024 Urea nitrogen/Creatinine [Mass ratio] 12.3 mg/mg 10- [facility] Basic Metabolic Profile (BMP )on 12-20-2024 BUN/CRE 12.3 RATIO Normal - [facility] Comment on above: Performed By: #### L 500.2500, L100.0100 ####[facility] [address] [place], [address] Calcium [Mass/Vol] 9.2 mg/dL Normal 7.6-11.0 [facility] Comment on above: Performed By: #### L 500.2500, L100.0100 ####[facility] [address] [place], [address] Chloride [Moles/Vol] 98 mmol/L Normal 98-108 [facility] Comment on above: Performed By: #### L 500.2500, L100.0100 ####[facility] [address] [place], [address] CO2 [Moles/Vol] 26.7 mmol/L Normal 21.0-32.0 [facility] Comment on above: Performed By: #### L 500.2500, L100.0100 ####[facility] [address] [place], [address] Creatinine [Mass/Vol] 0.94 mg/dL Normal 0.70-1.20 [facility] Comment on above: Performed By: #### L 500.2500, L100.0100 ####[facility] [address] [place], [address] ECRCL 128.93 ml/min Normal 50-250 [facility] Comment on above: Performed By: #### L 500.2500, L100.0100 ####[facility] [address] [place], [address] GAP 10 Normal 5-15 [facility] Comment on above: Performed By: #### L 500.2500, L100.0100 ####[facility] [address] [place], [address] GFR/1.73 sq M.predicted among non-blacks MDRD (S/P/Bld) [Vol rate/Area] 97 mL/min/{1.73_m2} Normal >60 [facility] Comment on above: Result Comment: mL/m in/1.73m2 CKD-EPI Creatinine Equation (2020) Performed By: #### L 500.2500, L100.0100 ####[facility] [address] [place], [address] Glucose [Mass/Vol] 121 mg/dL High 70-99 [facility] Comment on above: Performed By: #### L 500.2500, L100.0100 ####[facility] [address] [place], [address] Potassium [Moles/Vol] 4.2 mmol/L Normal 3.3-5.1 [facility] Comment on above: Performed By: #### L 500.2500, L100.0100 ####[facility] [address] [place], [address] Sodium [Moles/Vol] 134 mmol/L Normal 133-145 [facility] Comment on above: Performed By: #### L 500.2500, L100.0100 ####[facility] [address] [place], [address] Urea nitrogen [Mass/Vol] 12 mg/dL Normal 4-19 [facility] Comment on above: Performed By: #### L 500.2500, L100.0100 ####[facility] [address] [place], [address] Basophil percentageOrdered B y: Robles Botello on 12-20-2024 Basophils/100 WBC (Bld) 0.5 % 0-1 [facility] Bedside Glucoseon 12-20-2024 FINGERSTICK GLU 222 mg/dL High 74-106 [facility] Comment on above: Result Comment: STEPHANIE ATKINSON OF PATIENT CARE PER NURSING PROTOCOL Performed By: #### L 501.080 ####[facility] [address] [place], [address] CBC W/Diff, Automatedon 11-27 Absolute Lymph 0.89 X10 3/uL Normal 0.83-4.51 [facility] Comment on above: Performed By: #### L 500.2500, L100.0100 ####[facility] [address] [place], [address] Absolute Neut 6.4 X10 3/uL Normal 2.0-7.7 [facility] Comment on above: Performed By: #### L 500.2500, L100.0100 ####[facility] [address] [place], [address] Basophils/100 WBC (Bld) 0.5 % Normal 0-1 [facility] Comment on above: Performed By: #### L 500.2500, L100.0100 ####[facility] [address] [place], [address] Eosinophils/100 WBC (Bld) 1.6 % Normal 0-5 [facility] Comment on above: Performed By: #### L 500.2500, L100.0100 ####[facility] [address] [place], [address] Erythrocyte distribution width (RBC) [Ratio] 13.9 % Normal 11.6-14.6 [facility] Comment on above: Performed By: #### L 500.2500, L100.0100 ####[facility] [address] [place], [address] Hematocrit (Bld) [Volume fraction] 46.2 % Normal 40-54 [facility] Comment on above: Performed By: #### L 500.2500, L100.0100 ####[facility] [address] [place], [address] Hemoglobin (Bld) [Mass/Vol] 14.3 g/dL Normal 13.0-16.5 [facility] Comment on above: Performed By: #### L 500.2500, L100.0100 ####[facility] [address] [place], [address] IG% 0.400 Normal 0.0-0.9 [facility] Comment on above: Result Comment: IG% - Immature Granulocytes (promyelocytes, myelocytes andmetamyelocytes) > 1% indicates that a LEFT SHIFT is Present. Performed By: #### L 500.2500, L100.0100 ####[facility] [address] [place], [address] Lymphocytes/100 WBC (Bld) 10.6 % Low 19-41 [facility] Comment on above: Performed By: #### L 500.2500, L100.0100 ####[facility] [address] [place], [address] MCH (RBC) [Entitic mass] 26.9 pg Low 27.0-32.0 [facility] Comment on above: Performed By: #### L 500.2500, L100.0100 ####[facility] [address] [place], [address] MCHC (RBC) [Mass/Vol] 31.0 g/dL Low 32-36 [facility] Comment on above: Performed By: #### L 500.2500, L100.0100 ####[facility] [address] [place], [address] MCV (RBC) [Entitic vol] 87.0 fL Normal 80-94 [facility] Comment on above: Performed By: #### L 500.2500, L100.0100 ####[facility] [address] [place], [address] Monocytes/100 WBC (Bld) 10.6 % High 0-10 [facility] Comment on above: Performed By: #### L 500.2500, L100.0100 ####[facility] [address] [place], [address] Neutrophils/100 WBC (Bld) 76.3 % High 47-70 [facility] Comment on above: Performed By: #### L 500.2500, L100.0100 ####[facility] [address] [place], [address] Nucleated RBC (Bld) [#/Vol] 0 10*3/uL Normal 0-5 [facility] Comment on above: Performed By: #### L 500.2500, L100.0100 ####[facility] [address] [place], [address] Platelet mean volume (Bld) [Entitic vol] 9.8 fL Normal 6.2-12.0 [facility] Comment on above: Performed By: #### L 500.2500, L100.0100 ####[facility] [address] [place], [address] Platelets (Bld) [#/Vol] 198 10*3/uL Normal 150-450 [facility] Comment on above: Performed By: #### L 500.2500, L100.0100 ####[facility] [address] [place], [address] RBC (Bld) [#/Vol] 5.31 10*6/uL Normal 4.6-6.2 [facility] Comment on above: Performed By: #### L 500.2500, L100.0100 ####[facility] [address] [place], [address] RDW SD 44.4 fl High 35.1-43.9 [facility] Comment on above: Performed By: #### L 500.2500, L100.0100 ####[facility] [address] [place], [address] WBC (Bld) [#/Vol] 8.4 10*3/uL Normal 4.4-11.0 [facility] Comment on above: Performed By: #### L 500.2500, L100.0100 ####[facility] [address] [place], [address] CTA Chest W/WO Contraston CTA Chest W/WO Contrast Normal [facility] Carbon dioxide, total [Moles /volume] in Central venous bloodOrdered By: Robles Botello on 12-20-2024 CO2 [Moles/Vol] 26.7 mmol/L 21.0-32.0 [facility] Chloride assayOrdered By: Otis Botello on 12-20-2024 Chloride [Moles/Vol] 98 mmol/L 98-108 [facility] Consultation - Surgicalon Consultation - Surgical Normal [facility] D-Dimer Quantitative (DVT/PE )on 12-20-2024 D-DIMER QUANT 0.58 FEU/ug/m Invalid Interpretation Code 0.27-0.49 [facility] Comment on above: Result Comment: D-Di joanne ELEVATED (>0.49): Additional studies and clinicalassessments are indicated to conclude diagnosis of:Deep Vein Thrombosis (DVT) or Pulmonary Embolism (PE)CRITICAL VALUE CALLED TO [id number]/25/25 0020 Marquez Swain.RESULTS READ BACK BY SAME. Performed By: #### L 300.8000 ####[facility] [address] [place], [address] Emergency Department Summary on 12-20-2024 Emergency Department Summary Normal [facility] Eosinophil percentageOrdered By: Robles Botello on 12-20-2024 Eosinophils/100 WBC (Bld) 1.6 % 0-5 [facility] Erythrocyte distribution wid th ratioOrdered By: Robles Botello on 12-20-2024 Erythrocyte distribution width (RBC) [Ratio] 13.9 % 11.6-14.6 [facility] Erythrocyte distribution wid th standard deviationOrdered By: Robles Botello on 12-20-2024 Erythrocyte distribution width (RBC) [Ratio] 44.4 fl High 35.1-43.9 [facility] Glomerular filtration rate ( GFR) estimation/1.73 sq m using serum, plasma, or whole bOrdered By: Robles Botello on 12-20-2024 GFR/1.73 sq M.predicted among non-blacks MDRD (S/P/Bld) [Vol rate/Area] 97 mL/min/{1.73_m2} >60 [facility] Comment on above: mL/min/1.73m2 CKD-EP I Creatinine Equation (2020) H AND P Exam - Hospitaliston 12-20-2024 H&P Exam - Hospitalist Normal [facility] Hand Min 3 Viewson Hand Min 3 Views Normal [facility] Hematocrit Auto (Bld) [Volum e fraction]Ordered By: Robles Botello on 12-20-2024 Hematocrit (Bld) [Volume fraction] 46.2 % 40-54 [facility] Hemoglobin measurementOrdere d By: Robles Botello on 12-20-2024 Hemoglobin (Bld) [Mass/Vol] 14.3 g/dL 13.0-16.5 [facility] Immature granulocytes/100 WB C Auto (Bld)Ordered By: Robles Botello on 12-20-2024 Immature granulocytes/100 WBC (Bld) 0.400 % 0.0-0.9 [facility] Comment on above: IG% - Immature Granu locytes (promyelocytes, myelocytes and metamyelocytes) > 1% indicates that a LEFT SHIFT is Present. MCV (mean corpuscular volume ) determinationOrdered By: Robles Botello on 12-20-2024 MCV (RBC) [Entitic vol] 87.0 fL 80-94 [facility] Mean corpuscular hemoglobin (MCH) determinationOrdered By: Robles Botello on 12-20-2024 MCH (RBC) [Entitic mass] 26.9 pg Low 27.0-32.0 [facility] Mean corpuscular hemoglobin concentration (MCHC) determinationOrdered By: Robles Botello on 12-20-2024 MCHC (RBC) [Mass/Vol] 31.0 g/dL Low 32-36 [facility] Mean platelet volume determi nationOrdered By: Robles Botello on 12-20-2024 Platelet mean volume (Bld) [Entitic vol] 9.8 fL 6.2-12.0 [facility] Monocyte percentageOrdered B y: Robles Botello on 12-20-2024 Monocytes/100 WBC (Bld) 10.6 % High 0-10 [facility] Neutrophil percentageOrdered By: Robles Botello on 12-20-2024 Neutrophils/100 WBC (Bld) 76.3 % High 47-70 [facility] Nucleated red blood cell per centageOrdered By: Robles Botello on 12-20-2024 Nucleated RBC/100 WBC (Bld) [Ratio] 0 % 0-5 [facility] Platelet countOrdered By: Otis Botello on 12-20-2024 Platelets (Bld) [#/Vol] 198 10*3/uL 150-450 [facility] Potassium measurement (mass/ volume)Ordered By: Robles Botello on 12-20-2024 Potassium (Unsp spec) [Mass/Vol] 4.2 mmol/L 3.3-5.1 [facility] RBC Auto (Bld) [#/Vol]Ordere d By: Robles Botello on 12-20-2024 RBC (Bld) [#/Vol] 5.31 10*6/uL 4.6-6.2 [facility] Serum creatinine measurement (mass/volume)Ordered By: Robles Botello on 12-20-2024 Creatinine [Mass/Vol] 0.94 mg/dL 0.70-1.20 [facility] Serum glucose measurement (m ass/volume)Ordered By: Robles Botello on 12-20-2024 Glucose [Mass/Vol] 121 mg/dL High 70-99 [facility] Serum or plasma calcium scott urement (mass/volume)Ordered By: Robles Botello on 12-20-2024 Calcium [Mass/Vol] 9.2 mg/dL 7.6-11.0 [facility] Serum or plasma urea nitroge n measurement (mass/volume)Ordered By: Robles Botello on 12-20-2024 Urea nitrogen [Mass/Vol] 12 mg/dL 4-19 [facility] Sodium levelOrdered By: Liu Botello on 12-20-2024 Sodium [Moles/Vol] 134 mmol/L 133-145 [facility] Troponin T HS 2 HRon 025 Trop T High Sen 16 ng/L Normal <=22 [facility] Comment on above: Performed By: #### L 499.0042 ####[facility] [address] [place], [place], [address] Troponin T HS 4 HRon 025 Trop T High Sen Normal <=22 [facility] Comment on above: Result Comment: [facility] DEPARTED ER. Performed By: #### L 499.0043 ####[facility] [address] [place], [place], [address] Troponin T.cardiac [Mass/vol ume] in Serum or Plasma by High sensitivity methodOrdered By: Nguyễn Al on 12-20-2024 Troponin T.cardiac High sensitivity method [Mass/Vol] 16 ng/L <22 [facility] White blood cell (WBC) count Ordered By: Robles Botello on 12-20-2024 WBC (Bld) [#/Vol] 8.4 10*3/uL 4.4-11.0 [facility] 12 Lead EKGon 12-19-2024 12 Lead EKG Normal [facility] Absolute lymphocyte countOrd ered By: Nguyễn Al on 12-19-2024 Lymphocytes Auto (Unsp spec) [#/Vol] 1.20 10*3/uL 0.83-4.51 [facility] Absolute neutrophil countOrd ered By: Nguyễn Al on 12-19-2024 Neutrophils (Bld) [#/Vol] 6.1 10*3/uL 2.0-7.7 [facility] Anion gap in Serum or Plasma Ordered By: Nguyễn Al on 12-19-2024 Anion gap [Moles/Vol] 10 mmol/L 5-15 [facility] Automated lymphocyte count a s percentage of total leukocytesOrdered By: Nguyễn Al on 12-19-2024 Lymphocytes/100 WBC Auto (Unsp spec) 14.4 % Low 19-41 [facility] BUN/creatinine ratioOrdered By: Nguyễn Al on 12-19-2024 Urea nitrogen/Creatinine [Mass ratio] 13.8 mg/mg - [facility] Basic Metabolic Profile (BMP )on 12-19-2024 BUN/CRE 13.8 RATIO Normal 03-17 [facility] Comment on above: Performed By: #### L 501.4021, L300.3900, L100.0100, L500.2500 ####[facility] [address] [place], [address] Calcium [Mass/Vol] 8.8 mg/dL Normal 7.6-11.0 [facility] Comment on above: Performed By: #### L 501.4021, L300.3900, L100.0100, L500.2500 ####[facility] [address] [place], [address] Chloride [Moles/Vol] 97 mmol/L Low 98-108 [facility] Comment on above: Performed By: #### L 501.4021, L300.3900, L100.0100, L500.2500 ####[facility] [address] [place], [address] CO2 [Moles/Vol] 25.7 mmol/L Normal 21.0-32.0 [facility] Comment on above: Performed By: #### L 501.4021, L300.3900, L100.0100, L500.2500 ####[facility] [address] [place], [address] Creatinine [Mass/Vol] 1.01 mg/dL Normal 0.70-1.20 [facility] Comment on above: Performed By: #### L 501.4021, L300.3900, L100.0100, L500.2500 ####[facility] [address] [place], [address] ECRCL 120.67 ml/min Normal 50-250 [facility] Comment on above: Performed By: #### L 501.4021, L300.3900, L100.0100, L500.2500 ####[facility] [address] [place], [address] GAP 10 Normal 5-15 [facility] Comment on above: Performed By: #### L 501.4021, L300.3900, L100.0100, L500.2500 ####[facility] [address] [place], [address] GFR/1.73 sq M.predicted among non-blacks MDRD (S/P/Bld) [Vol rate/Area] 89 mL/min/{1.73_m2} Normal >60 [facility] Comment on above: Result Comment: mL/m in/1.73m2 CKD-EPI Creatinine Equation (2020) Performed By: #### L 501.4021, L300.3900, L100.0100, L500.2500 ####[facility] [address] [place], [address] Glucose [Mass/Vol] 180 mg/dL High 70-99 [facility] Comment on above: Performed By: #### L 501.4021, L300.3900, L100.0100, L500.2500 ####[facility] [address] [place], [address] Potassium [Moles/Vol] 4.1 mmol/L Normal 3.3-5.1 [facility] Comment on above: Performed By: #### L 501.4021, L300.3900, L100.0100, L500.2500 ####[facility] [address] [place], [address] Sodium [Moles/Vol] 133 mmol/L Normal 133-145 [facility] Comment on above: Performed By: #### L 501.4021, L300.3900, L100.0100, L500.2500 ####[facility] [address] [place], [address] Urea nitrogen [Mass/Vol] 14 mg/dL Normal 4-19 [facility] Comment on above: Performed By: #### L 501.4021, L300.3900, L100.0100, L500.2500 ####[facility] [address] [place], [address] Basophil percentageOrdered B y: Nguyễn Al on 12-19-2024 Basophils/100 WBC (Bld) 0.5 % 0-1 [facility] CBC W/Diff, Automatedon 11-27 Absolute Lymph 1.20 X10 3/uL Normal 0.83-4.51 [facility] Comment on above: Performed By: #### L 501.4021, L300.3900, L100.0100, L500.2500 ####[facility] [address] [place], [address] Absolute Neut 6.1 X10 3/uL Normal 2.0-7.7 [facility] Comment on above: Performed By: #### L 501.4021, L300.3900, L100.0100, L500.2500 ####[facility] [address] [place], [address] Basophils/100 WBC (Bld) 0.5 % Normal 0-1 [facility] Comment on above: Performed By: #### L 501.4021, L300.3900, L100.0100, L500.2500 ####[facility] [address] [place], [address] Eosinophils/100 WBC (Bld) 1.3 % Normal 0-5 [facility] Comment on above: Performed By: #### L 501.4021, L300.3900, L100.0100, L500.2500 ####[facility] [address] [place], [address] Erythrocyte distribution width (RBC) [Ratio] 13.9 % Normal 11.6-14.6 [facility] Comment on above: Performed By: #### L 501.4021, L300.3900, L100.0100, L500.2500 ####[facility] [address] [place], [address] Hematocrit (Bld) [Volume fraction] 44.2 % Normal 40-54 [facility] Comment on above: Performed By: #### L 501.4021, L300.3900, L100.0100, L500.2500 ####[facility] [address] [place], [address] Hemoglobin (Bld) [Mass/Vol] 13.7 g/dL Normal 13.0-16.5 [facility] Comment on above: Performed By: #### L 501.4021, L300.3900, L100.0100, L500.2500 ####[facility] [address] [place], [address] IG% 0.200 Normal 0.0-0.9 [facility] Comment on above: Result Comment: IG% - Immature Granulocytes (promyelocytes, myelocytes andmetamyelocytes) > 1% indicates that a LEFT SHIFT is Present. Performed By: #### L 501.4021, L300.3900, L100.0100, L500.2500 ####[facility] [address] [place], [address] Lymphocytes/100 WBC (Bld) 14.4 % Low 19-41 [facility] Comment on above: Performed By: #### L 501.4021, L300.3900, L100.0100, L500.2500 ####[facility] [address] [place], [address] MCH (RBC) [Entitic mass] 27.2 pg Normal 27.0-32.0 [facility] Comment on above: Performed By: #### L 501.4021, L300.3900, L100.0100, L500.2500 ####[facility] [address] [place], [address] MCHC (RBC) [Mass/Vol] 31.0 g/dL Low 32-36 [facility] Comment on above: Performed By: #### L 501.4021, L300.3900, L100.0100, L500.2500 ####[facility] [address] [place], [address] MCV (RBC) [Entitic vol] 87.7 fL Normal 80-94 [facility] Comment on above: Performed By: #### L 501.4021, L300.3900, L100.0100, L500.2500 ####[facility] [address] [place], [address] Monocytes/100 WBC (Bld) 10.6 % High 0-10 [facility] Comment on above: Performed By: #### L 501.4021, L300.3900, L100.0100, L500.2500 ####[facility] [address] [place], [address] Neutrophils/100 WBC (Bld) 73.0 % High 47-70 [facility] Comment on above: Performed By: #### L 501.4021, L300.3900, L100.0100, L500.2500 ####[facility] [address] [place], [address] Nucleated RBC (Bld) [#/Vol] 0 10*3/uL Normal 0-5 [facility] Comment on above: Performed By: #### L 501.4021, L300.3900, L100.0100, L500.2500 ####[facility] [address] [place], [address] Platelet mean volume (Bld) [Entitic vol] 9.8 fL Normal 6.2-12.0 [facility] Comment on above: Performed By: #### L 501.4021, L300.3900, L100.0100, L500.2500 ####[facility] [address] [place], [address] Platelets (Bld) [#/Vol] 177 10*3/uL Normal 150-450 [facility] Comment on above: Performed By: #### L 501.4021, L300.3900, L100.0100, L500.2500 ####[facility] [address] [place], [address] RBC (Bld) [#/Vol] 5.04 10*6/uL Normal 4.6-6.2 [facility] Comment on above: Performed By: #### L 501.4021, L300.3900, L100.0100, L500.2500 ####[facility] [address] [place], [address] RDW SD 44.8 fl High 35.1-43.9 [facility] Comment on above: Performed By: #### L 501.4021, L300.3900, L100.0100, L500.2500 ####[facility] [address] [place], [address] WBC (Bld) [#/Vol] 8.4 10*3/uL Normal 4.4-11.0 [facility] Comment on above: Performed By: #### L 501.4021, L300.3900, L100.0100, L500.2500 ####[facility] [facility] [id number] [place], [address] Carbon dioxide, total [Moles /volume] in Central venous bloodOrdered By: Nguyễn Al on 12-19-2024 CO2 [Moles/Vol] 25.7 mmol/L 21.0-32.0 [facility] Chest 1 View (Portable)on Chest 1 View (Portable) [facility] Chloride assayOrdered By: Shankar Al on 12-19-2024 Chloride [Moles/Vol] 97 mmol/L Low 98-108 [facility] Emergency Department Summary on 12-19-2024 Emergency Department Summary Normal [facility] Eosinophil percentageOrdered By: Nguyễn Al on 12-19-2024 Eosinophils/100 WBC (Bld) 1.3 % 0-5 [facility] Erythrocyte distribution wid th ratioOrdered By: Nguyễn Al on 12-19-2024 Erythrocyte distribution width (RBC) [Ratio] 13.9 % 11.6-14.6 [facility] Erythrocyte distribution wid th standard deviationOrdered By: Nguyễn Al on 12-19-2024 Erythrocyte distribution width (RBC) [Ratio] 44.8 fl High 35.1-43.9 [facility] Glomerular filtration rate ( GFR) estimation/1.73 sq m using serum, plasma, or whole bOrdered By: Nguyễn Al on 12-19-2024 GFR/1.73 sq M.predicted among non-blacks MDRD (S/P/Bld) [Vol rate/Area] 89 mL/min/{1.73_m2} >60 [facility] Comment on above: mL/min/1.73m2 CKD-EP I Creatinine Equation (2020) Hematocrit Auto (Bld) [Volum e fraction]Ordered By: Nguyễn Al on 12-19-2024 Hematocrit (Bld) [Volume fraction] 44.2 % 40-54 [facility] Hemoglobin measurementOrdere d By: Nguyễn Al on 12-19-2024 Hemoglobin (Bld) [Mass/Vol] 13.7 g/dL 13.0-16.5 [facility] Immature granulocytes/100 WB C Auto (Bld)Ordered By: Nguyễn Al on 12-19-2024 Immature granulocytes/100 WBC (Bld) 0.200 % 0.0-0.9 [facility] Comment on above: IG% - Immature Granu locytes (promyelocytes, myelocytes and metamyelocytes) > 1% indicates that a LEFT SHIFT is Present. International normalized rat io (INR) calculationOrdered By: Nguyễn Al on 12-19-2024 INR Coag (Bld) [Relative time] 1.5 {INR} [facility] L501.4021on 12-19-2024 Trop T High Sen 11 ng/L Normal <=22 [facility] Comment on above: Performed By: #### L 501.4021, L300.3900, L100.0100, L500.2500 ####[facility] [id number] [place], [place], [id number] MCV (mean corpuscular volume ) determinationOrdered By: Nguyễn Al on 12-19-2024 MCV (RBC) [Entitic vol] 87.7 fL 80-94 [facility] Mean corpuscular hemoglobin (MCH) determinationOrdered By: Nguyễn Al on 12-19-2024 MCH (RBC) [Entitic mass] 27.2 pg 27.0-32.0 [facility] Mean corpuscular hemoglobin concentration (MCHC) determinationOrdered By: Nguyễn Al on 12-19-2024 MCHC (RBC) [Mass/Vol] 31.0 g/dL Low 32-36 [facility] Mean platelet volume determi nationOrdered By: Nguyễn Al on 12-19-2024 Platelet mean volume (Bld) [Entitic vol] 9.8 fL 6.2-12.0 [facility] Monocyte percentageOrdered B y: Nguyễn Al on 12-19-2024 Monocytes/100 WBC (Bld) 10.6 % High 0-10 [facility] Neutrophil percentageOrdered By: Nguyễn Al on 12-19-2024 Neutrophils/100 WBC (Bld) 73.0 % High 47-70 [facility] Nucleated red blood cell per centageOrdered By: Nguyễn Al on 12-19-2024 Nucleated RBC/100 WBC (Bld) [Ratio] 0 % 0-5 [facility] Platelet countOrdered By: Shankar Al on 12-19-2024 Platelets (Bld) [#/Vol] 177 10*3/uL 150-450 [facility] Potassium measurement (mass/ volume)Ordered By: Nguyễn Al on 12-19-2024 Potassium (Unsp spec) [Mass/Vol] 4.1 mmol/L 3.3-5.1 [facility] Prothrombin Time w/INRon INR Coag (PPP) [Relative time] 1.5 {INR} Normal [facility] Comment on above: Performed By: #### L 501.4021, L300.3900, L100.0100, L500.2500 ####[facility] [address] [place], [address] PT Coag (PPP) [Time] 18.1 s High 11.7-14.9 [facility] Comment on above: Performed By: #### L 501.4021, L300.3900, L100.0100, L500.2500 ####[facility] [address] [place], [address] Prothrombin timeOrdered By: Nguyễn Al on 12-19-2024 PT Coag (PPP) [Time] 18.1 s High 11.7-14.9 [facility] RBC Auto (Bld) [#/Vol]Ordere d By: Nguyễn Al on 12-19-2024 RBC (Bld) [#/Vol] 5.04 10*6/uL 4.6-6.2 [facility] [place] [facility] Serum creatinine measurement (mass/volume)Ordered By: Nguyễn Al on 12-19-2024 Creatinine [Mass/Vol] 1.01 mg/dL 0.70-1.20 [facility] Serum glucose measurement (m ass/volume)Ordered By: Nguyễn Al on 12-19-2024 Glucose [Mass/Vol] 180 mg/dL High 70-99 [facility] Serum or plasma calcium scott urement (mass/volume)Ordered By: Nguyễn Al on 12-19-2024 Calcium [Mass/Vol] 8.8 mg/dL 7.6-11.0 [facility] Serum or plasma urea nitroge n measurement (mass/volume)Ordered By: Nguyễn Al on 12-19-2024 Urea nitrogen [Mass/Vol] 14 mg/dL 4-19 [facility] Sodium levelOrdered By: Nguyễn Al on 12-19-2024 Sodium [Moles/Vol] 133 mmol/L 133-145 [facility] Troponin T.cardiac [Mass/vol ume] in Serum or Plasma by High sensitivity methodOrdered By: Nguyễn Al on 12-19-2024 Troponin T.cardiac High sensitivity method [Mass/Vol] 11 ng/L <22 [facility] White blood cell (WBC) count Ordered By: Nguyễn Al on 12-19-2024 WBC (Bld) [#/Vol] 8.4 10*3/uL 4.4-11.0 [facility] .GFRon 12-13-2024 Estimated Glomerular Filtration Rate 109 ml/min/1.73sqm Normal [facility] Comment [...] GFR, ADIFF, DIMER, CBC, PBNP, TROPHS #### [address] [address] BMPon 12-13-2024 BUN/Creatinine Ratio 29 ratio High 7-27 [facility] Comment on above: Order Comment: Speci men hemolyzed. Notified [employer] @12/13/2024 09:23:59 EDT BP Performed By: #### A ELY REYES, BMP, MG, GFR, ADIFF, DIMER, CBC, PBNP, TROPHS #### [address] [address] Calcium [Mass/Vol] 8.8 mg/dL Normal 8.4-10.2 [facility] Comment on above: Order Comment: Speci men hemolyzed. Notified Kalcey @12/13/2024 09:23:59 EDT BP Performed By: #### A ELY REYES, BMP, MG, GFR, ADIFF, DIMER, CBC, PBNP, TROPHS #### [address] [address] Chloride [Moles/Vol] 102 mmol/L Normal 98-107 [facility] Comment on above: Order Comment: Speci men hemolyzed. Notified Kalcey @12/13/2024 09:23:59 EDT BP Performed By: #### A ELY REYES, BMP, MG, GFR, ADIFF, DIMER, CBC, PBNP, TROPHS #### [address] [address] CO2 [Moles/Vol] 32 mmol/L High 22-29 [facility] Comment on above: Order Comment: Speci men hemolyzed. Notified Damon @12/13/2024 09:23:59 EDT BP Performed By: #### A ELY REYES, BMP, MG, GFR, ADIFF, DIMER, CBC, PBNP, TROPHS #### [address] [address] Creatinine [Mass/Vol] 0.73 mg/dL Normal 0.67-1.17 [facility] Comment on above: Order Comment: Speci men hemolyzed. Notified Romay @12/13/2024 09:23:59 EDT BP Performed By: #### A ELY REYES, BMP, MG, GFR, ADIFF, DIMER, CBC, PBNP, TROPHS #### [address] [address] Electrolyte Balance 4.0 mEq/L Normal 4.0-15.0 [facility] Comment on above: Order Comment: Speci men hemolyzed. Notified Romay @12/13/2024 09:23:59 EDT BP Performed By: #### A ELY REYES, BMP, MG, GFR, ADIFF, DIMER, CBC, PBNP, TROPHS #### [address] [address] Glucose [Mass/Vol] 137 mg/dL High 70-105 [facility] Comment on above: Order Comment: Speci men hemolyzed. Notified Roma @12/13/2024 09:23:59 EDT BP Performed By: #### A ELY REYES, BMP, MG, GFR, ADIFF, DIMER, CBC, PBNP, TROPHS #### [address] [address] Potassium [Moles/Vol] 3.9 mmol/L Normal 3.5-5.1 [facility] Comment on above: Order Comment: Speci men hemolyzed. Notified Damon @12/13/2024 09:23:59 EDT BP Performed By: #### A ELY REYES, BMP, MG, GFR, ADIFF, DIMER, CBC, PBNP, TROPHS #### [address] [address] Sodium [Moles/Vol] 138 mmol/L Normal 136-145 [facility] Comment on above: Order Comment: Speci men hemolyzed. Notified Romay @12/13/2024 09:23:59 EDT BP Performed By: #### A ELY REYES, BMP, MG, GFR, ADIFF, DIMER, CBC, PBNP, TROPHS #### [address] [address] Urea nitrogen [Mass/Vol] 21 mg/dL High 12-13 [facility] Comment on above: Order Comment: Speci men hemolyzed. Notified Romay @12/13/2024 09:23:59 EDT BP Performed By: #### A ELY REYES, BMP, MG, GFR, ADIFF, DIMER, CBC, PBNP, TROPHS #### [address] [address] LABORATORYOrdered By: SYSTEM SYSTEM on 12-13-2024 Calcium [...] 12-13-2024 Magnesium [Mass/Vol] 1.7 mg/dL Low 1.8-2.4 [facility] Comment on above: Performed By: #### A ERIC, MDW, BMP, MG, GFR, ADIFF, DIMER, CBC, PBNP, TROPHS #### [address] [address] .GFRon 12-12-2024 Estimated Glomerular Filtration Rate 111 ml/min/1.73sqm Normal [facility] Comment [...] GFR, ADIFF, DIMER, CBC, PBNP, TROPHS #### [address] [address] BMPon 12-12-2024 BUN/Creatinine Ratio 22 ratio Normal 7-27 [facility] Comment on above: Performed By: #### A ELY REYES, BMP, MG, GFR, ADIFF, DIMER, CBC, PBNP, TROPHS #### [address] [address] Calcium [Mass/Vol] 9.2 mg/dL Normal 8.4-10.2 [facility] Comment on above: Performed By: #### A ELY REYES, BMP, MG, GFR, ADIFF, DIMER, CBC, PBNP, TROPHS #### [address] [address] Chloride [Moles/Vol] 103 mmol/L Normal 98-107 [facility] Comment on above: Performed By: #### A ELY REYES, BMP, MG, GFR, ADIFF, DIMER, CBC, PBNP, TROPHS #### [address] [address] CO2 [Moles/Vol] 32 mmol/L High 22-29 [facility] Comment on above: Performed By: #### A ELY REYES, BMP, MG, GFR, ADIFF, DIMER, CBC, PBNP, TROPHS #### [address] [address] Creatinine [Mass/Vol] 0.69 mg/dL Normal 0.67-1.17 [facility] Comment on above: Performed By: #### A ELY REYES, BMP, MG, GFR, ADIFF, DIMER, CBC, PBNP, TROPHS #### [address] [address] Electrolyte Balance 7.0 mEq/L Normal 4.0-15.0 [facility] Comment on above: Performed By: #### A ELY REYES, BMP, MG, GFR, ADIFF, DIMER, CBC, PBNP, TROPHS #### [address] [address] Glucose [Mass/Vol] 115 mg/dL High 70-105 [facility] Comment on above: Performed By: #### A ELY REYES, BMP, MG, GFR, ADIFF, DIMER, CBC, PBNP, TROPHS #### [address] [address] Potassium [Moles/Vol] 3.8 mmol/L Normal 3.5-5.1 [facility] Comment on above: Performed By: #### A ELY REYES, BMP, MG, GFR, ADIFF, DIMER, CBC, PBNP, TROPHS #### [address] [address] Sodium [Moles/Vol] 142 mmol/L Normal 136-145 [facility] Comment on above: Performed By: #### A ELY REYES, JULIÁN, MG, GFR, ADIFF, DIMER, CBC, PBNP, TROPHS #### [address] [address] Urea nitrogen [Mass/Vol] 15 mg/dL Normal 7-18 [facility] Comment on above: Performed By: #### A ELY REYES, JULIÁN, MG, GFR, ADIFF, DIMER, CBC, PBNP, TROPHS #### [address] [address] LABORATORYOrdered By: SYSTEM SYSTEM on 12-12-2024 Calcium [...] ng/L Male: 0-76 ng/L Testing performed on [employer] using a homogeneous sandwich chemiluminescent immunoassay based on [employer] technology. Urea nitrogen [Mass/Vol] 15 mg/dL Normal 7 - 18 mg/dL AO ADM SS Urea nitrogen/Creatinine [Mass ratio] 22 ratio Normal 7 - 27 ratio AO ADM SS MGon 12-12-2024 Magnesium [Mass/Vol] 2.0 mg/dL Normal 1.8-2.4 [facility] Comment on above: Performed By: #### A ERIC, ELY, BMP, MG, GFR, ADIFF, DIMER, CBC, PBNP, TROPHS #### [address] [address] TROPHSon 12-12-2024 High Sensitivity Troponin I 12 ng/L Normal 0-76 [facility] Comment on above: Result Comment: High Sensitive Troponin I Reference Ranges: Female: 0-51 ng/L Male: 0-76 ng/L Testing performed on [employer] using a homogeneous sandwich chemiluminescent immunoassay based on [employer] technology. Performed By: #### A ELY REYES, BMP, MG, GFR, ADIFF, DIMER, CBC, PBNP, TROPHS #### [address] [address] XR CHEST 1 VIEWon 12-12-2024 XR CHEST [...] 12/12/2024 6:38:29 AM Ordering Provider: VENITA Kate [facility] .Auto Diffon 12-11-2024 Basophil, Absolute 0.0 10 3/mcL Normal 0.0-0.3 [facility] Comment on above: Performed By: #### A ELY REYES, UJLIÁN, MG, GFR, ADIFF, DIMER, CBC, PBNP, TROPHS #### [address] [address] Basophils/100 WBC (Bld) 0.5 % Normal 0.0-2.5 [facility] Comment on above: Performed By: #### A ELY REYES, JULIÁN, MG, GFR, ADIFF, DIMER, CBC, PBNP, TROPHS #### [id number] [place], [place] [address] Eosinophil, Absolute 0.1 10 3/mcL Normal 0.0-0.[address] [facility] Comment on above: Performed By: #### A ELY REYES, BMP, MG, GFR, ADIFF, DIMER, CBC, PBNP, TROPHS #### [address] [address] Eosinophils/100 WBC (Bld) 1.3 % Normal 0.0-6.0 [facility] Comment on above: Performed By: #### A ELY REYES, BMP, MG, GFR, ADIFF, DIMER, CBC, PBNP, TROPHS #### [address] [address] Lymphocyte, Absolute 0.8 10 3/mcL Low 0.9-4.[address] [facility] Comment on above: Performed By: #### A ELY REYES, BMP, MG, GFR, ADIFF, DIMER, CBC, PBNP, TROPHS #### [address] [address] Lymphocytes/100 WBC (Bld) 9.5 % Low 20.0-40.0 [facility] Comment on above: Performed By: #### A ELY REYES, BMP, MG, GFR, ADIFF, DIMER, CBC, PBNP, TROPHS #### [address] [address] Monocyte, Absolute 0.9 10 3/mcL Normal 0.1-1.4 [facility] Comment on above: Performed By: #### A ELY REYES, BMP, MG, GFR, ADIFF, DIMER, CBC, PBNP, TROPHS #### [address] [address] Monocytes/100 WBC (Bld) 10.0 % Normal 2.0-13.0 [facility] Comment on above: Performed By: #### A ELY REYES, BMP, MG, GFR, ADIFF, DIMER, CBC, PBNP, TROPHS #### [address] [address] Neutrophils/100 WBC (Bld) 78.7 % High 50.0-75.0 [facility] Comment on above: Performed By: #### A ELY REYES, BMP, MG, GFR, ADIFF, DIMER, CBC, PBNP, TROPHS #### [address] [address] .GFRon 12-11-2024 Estimated Glomerular Filtration Rate 105 ml/min/1.73sqm Normal [facility] Comment [...] GFR, ADIFF, DIMER, CBC, PBNP, TROPHS #### [address] [address] .MDWon 12-11-2024 Monocyte Distribution Width 18.16 Normal 0.00-20.00 [facility] Comment on above: Result Comment: For ED adult patients suspected of sepsis, MDW<=20.0 does not rule out sepsis or risk of sepsis Performed By: #### A ELY REYES, BMP, MG, GFR, ADIFF, DIMER, CBC, PBNP, TROPHS #### [address] [address] .NEUABSon 12-11-2024 Neutrophil, Absolute 6.9 10 3/mcL Normal 2.3-8.[address] [facility] Comment on above: Performed By: #### A ELY REYES, BMP, MG, GFR, ADIFF, DIMER, CBC, PBNP, TROPHS #### [address] [address] CBCon 12-11-2024 Erythrocyte distribution width (RBC) [Ratio] 14.9 % Normal 11.5-15.5 [facility] Comment on above: Performed By: #### A ELY REYES, BMP, MG, GFR, ADIFF, DIMER, CBC, PBNP, TROPHS #### [address] [address] Hematocrit (Bld) [Volume fraction] 43.0 % Normal 40.0-52.0 [facility] Comment on above: Performed By: #### A ELY REYES, BMP, MG, GFR, ADIFF, DIMER, CBC, PBNP, TROPHS #### [address] [address] Hgb 14.0 G/dL Normal 13.0-17.5 [facility] Comment on above: Performed By: #### A ELY REYES, BMP, MG, GFR, ADIFF, DIMER, CBC, PBNP, TROPHS #### [address] [address] MCH (RBC) [Entitic mass] 28.2 pg Normal 27.0-33.0 [facility] Comment on above: Performed By: #### A ELY REYES, BMP, MG, GFR, ADIFF, DIMER, CBC, PBNP, TROPHS #### [address] [address] MCHC 32.7 G/dL Normal 32.0-36.0 [facility] Comment on above: Performed By: #### A ELY REYES, BMP, MG, GFR, ADIFF, DIMER, CBC, PBNP, TROPHS #### [address] [address] MCV (RBC) [Entitic vol] 86.1 fL Normal 81.0-100.0 [facility] Comment on above: Performed By: #### A ELY REYES, BMP, MG, GFR, ADIFF, DIMER, CBC, PBNP, TROPHS #### [address] [address] Platelet 208 10 3/mcL Normal 150-450 [facility] Comment on above: Performed By: #### A ERIC, MDW, BMP, MG, GFR, ADIFF, DIMER, CBC, PBNP, TROPHS #### [address] [address] Platelet mean volume (Bld) [Entitic vol] 7.9 fL Normal 6.4-10.5 [facility] Comment on above: Performed By: #### A ELY REYES, BMP, MG, GFR, ADIFF, DIMER, CBC, PBNP, TROPHS #### [address] [address] RBC 4.99 10 6/mcL Normal 4.50-6.00 [facility] Comment on above: Performed By: #### A ELY REYES, BMP, MG, GFR, ADIFF, DIMER, CBC, PBNP, TROPHS #### [address] [address] WBC 8.8 10 3/mcL Normal 4.5-10.8 [facility] Comment on above: Performed By: #### A ELY REYES, BMP, MG, GFR, ADIFF, DIMER, CBC, PBNP, TROPHS #### [address] [address] CMPon 12-11-2024 Albumin Level 2.8 G/dL Low 3.5-5.0 [facility] Comment on above: Performed By: #### A ELY REYES, BMP, MG, GFR, ADIFF, DIMER, CBC, PBNP, TROPHS #### [address] [id number] Albumin/Globulin [Mass ratio] 0.6 {ratio} Low 1.1-2.5 [facility] Comment on above: Performed By: #### A ELY REYES, BMP, MG, GFR, ADIFF, DIMER, CBC, PBNP, TROPHS #### [address] [address] ALP [Catalytic activity/Vol] 100 U/L Normal 40-135 [facility] Comment on above: Performed By: #### A ELY REYES, BMP, MG, GFR, ADIFF, DIMER, CBC, PBNP, TROPHS #### [address] [address] ALT [Catalytic activity/Vol] 18 U/L Normal 16-63 [facility] Comment on above: Performed By: #### A ERIC, W, BMP, MG, GFR, ADIFF, DIMER, CBC, PBNP, TROPHS #### [place] [address] AST [Catalytic activity/Vol] 8 U/L Low 10-40 [facility] Comment on above: Performed By: #### A ERIC, W, BMP, MG, GFR, ADIFF, DIMER, CBC, PBNP, TROPHS #### [address] Bili Total 0.3 mg/dL Normal 0.2-1.0 [facility] Comment on above: Result Comment: Use of this assay is not recommended for patients undergoing treatment with eltrombopag due to the potential for falsely elevated results. Performed By: #### A MD ERICW, BMP, MG, GFR, ADIFF, DIMER, CBC, PBNP, TROPHS #### [address] [address] BUN/Creatinine Ratio 12 ratio Normal 7-27 [facility] Comment on above: Performed By: #### A MD ERICW, BMP, MG, GFR, ADIFF, DIMER, CBC, PBNP, TROPHS #### [address] [address] Calcium [Mass/Vol] 8.9 mg/dL Normal 8.4-10.2 [facility] Comment on above: Performed By: #### A MD ERICW, BMP, MG, GFR, ADIFF, DIMER, CBC, PBNP, TROPHS #### [address] [address] Chloride [Moles/Vol] 98 mmol/L Normal 98-107 [facility] Comment on above: Performed By: #### A MD ERICW, BMP, MG, GFR, ADIFF, DIMER, CBC, PBNP, TROPHS #### [address] [address] CO2 [Moles/Vol] 32 mmol/L High 22-29 [facility] Comment on above: Performed By: #### A ELY REYES, BMP, MG, GFR, ADIFF, DIMER, CBC, PBNP, TROPHS #### [address] [address] Creatinine [Mass/Vol] 0.82 mg/dL Normal 0.67-1.17 [facility] Comment on above: Performed By: #### A ELY REYES, BMP, MG, GFR, ADIFF, DIMER, CBC, PBNP, TROPHS #### [place] [id number] Electrolyte Balance 4.0 mEq/L Normal 4.0-15.0 [facility] Comment on above: Performed By: #### A ELY REYES, BMP, MG, GFR, ADIFF, DIMER, CBC, PBNP, TROPHS #### [address] [address] Globulin 4.6 G/dL High 2.7-4.4 [facility] Comment on above: Performed By: #### A ELY REYES, BMP, MG, GFR, ADIFF, DIMER, CBC, PBNP, TROPHS #### [address] [address] Glucose [Mass/Vol] 165 mg/dL High 70-105 [facility] Comment on above: Performed By: #### A ELY REYES, BMP, MG, GFR, ADIFF, DIMER, CBC, PBNP, TROPHS #### [address] [address] Potassium [Moles/Vol] 3.6 mmol/L Normal 3.5-5.1 [facility] Comment on above: Performed By: #### A ELY REYES, BMP, MG, GFR, ADIFF, DIMER, CBC, PBNP, TROPHS #### [address] [address] Sodium [Moles/Vol] 134 mmol/L Low 136-145 [facility] Comment on above: Performed By: #### A ELY REYES, BMP, MG, GFR, ADIFF, DIMER, CBC, PBNP, TROPHS #### [address] [place], [place] [address] Total Protein 7.4 G/dL Normal 6.4-8.2 [facility] Comment on above: Performed By: #### A ELY REYES, BMP, MG, GFR, ADIFF, DIMER, CBC, PBNP, TROPHS #### [id number] [place], [place] [address] Urea nitrogen [Mass/Vol] 10 mg/dL Normal 7-18 [facility] Comment on above: Performed By: #### A ELY REYES, BMP, MG, GFR, ADIFF, DIMER, CBC, PBNP, TROPHS #### [id number] [place], [place] [address] CT ANGIOGRAPHY CHEST W/CONTR [place] 12-11-2024 CT [...] 3:29:36 AM Ordering Provider: DELORES MURO Normal [facility] DIMERon 12-11-2024 D-Dimer 593 ng/mL D-DU High 0-230 [facility] Comment on above: [...] GFR, ADIFF, DIMER, CBC, PBNP, TROPHS #### [id number] [place], [place] [address] LABORATORYOrdered By: SYSTEM SYSTEM on 12-11-2024 Troponin I.cardiac DL <= 0.01 ng/mL [Mass/Vol] 10 ng/L Normal 0 - 76 ng/L AO ADM SS Comment on above: Interpretive Data: H igh Sensitive Troponin I Reference Ranges: Female: 0-51 ng/L Male: 0-76 ng/L Testing performed on [employer] using a homogeneous sandwich chemiluminescent immunoassay based on [employer] technology. Albumin BCP dye [Mass/Vol] 2.8 G/dL [...] ng/L Male: 0-76 ng/L Testing performed on [employer] using a homogeneous sandwich chemiluminescent immunoassay based on [employer] technology. Urea nitrogen [Mass/Vol] 10 mg/dL Normal [...] 12-11-2024 Lipase Level 15 U/L Low 16-77 [facility] Comment on above: Performed By: #### A ELY REYES, BMP, MG, GFR, ADIFF, DIMER, CBC, PBNP, TROPHS #### [id number] [place], [place] [address] No Panel Informationon 12-11 Legionella Urine Ag Presumptive negative for L. pneumophila serogroup 1 antigen in urine, suggesting no recent or current infection. Legionnaire's disease cannot be ruled out since other serogroups and species may also cause disease. [facility] Streptococcus Pneumoniae Urine Antig Presumptive negative for pneumococcal pneumonia, suggesting no current or recent pneumococcal infection. Infection due to Strep pneumoniae cannot be ruled out since the antigen present in the sample may be below the detection limit of the test. [facility] Comment on above: This test has not be en evaluated on patients taking antibiotics for greater than 24 hours or on patients who have recently completed an antibiotic regimen. The accuracy of this test has not been proven in young children. PBNPon 12-11-2024 Natriuretic peptide B (Bld) [Mass/Vol] 1099 pg/mL High 0-125 [facility] Comment on above: Result Comment: NT-p roBNP results of less than 300 pg/mL effectively rules out acute congestive heart failure with 99% negative predictive value. Performed By: #### A ELY REYES, BMP, MG, GFR, ADIFF, DIMER, CBC, PBNP, TROPHS #### [id number] [place], [place] [address] [facility] 12-11-2024 High Sensitivity Troponin I 10 ng/L Normal 0-76 [facility] Comment on above: Result Comment: High Sensitive Troponin I Reference Ranges: Female: 0-51 ng/L Male: 0-76 ng/L Testing performed on [employer] using a homogeneous sandwich chemiluminescent immunoassay based on [employer] technology. Performed By: #### A ELY REYES, BMP, MG, GFR, ADIFF, DIMER, CBC, PBNP, TROPHS #### [facility] [address] [place], [place] [address] High Sensitivity Troponin I 10 ng/L Normal 0-76 [facility] Comment on above: Result Comment: High Sensitive Troponin I Reference Ranges: Female: 0-51 ng/L Male: 0-76 ng/L Testing performed on [employer] using a homogeneous sandwich chemiluminescent immunoassay based on [employer] technology. Performed By: #### A ELY REYES, BMP, MG, GFR, ADIFF, DIMER, CBC, PBNP, TROPHS #### [facility] [address] [place], [place] [address] XR CHEST 1 VIEWon 12-11-2024 XR CHEST [...] 12/11/2024 1:19:48 AM Ordering Provider: DELORES MURO Normal [facility] .Auto Diffon 11-28-2024 Basophil, Absolute 0.0 10 3/mcL Normal 0.0-0.3 [facility] Comment on above: Performed By: #### C BC, MG, GFR, ADIFF, BMP, ANEU #### [facility] [address] [place] [address] Basophils/100 WBC (Bld) 0.8 % Normal 0.0-2.5 [facility] Comment on above: Performed By: #### C BC, MG, GFR, ADIFF, BMP, ANEU #### [address] [address] Eosinophil, Absolute 0.1 10 3/mcL Normal 0.0-0.7 [facility] Comment on above: Performed By: #### C BC, MG, GFR, ADIFF, BMP, ANEU #### [address] [address] Eosinophils/100 WBC (Bld) 1.7 % Normal 0.0-6.0 [facility] Comment on above: Performed By: #### C BC, MG, GFR, ADIFF, BMP, ANEU #### [address] [address] Lymphocyte, Absolute 0.9 10 3/mcL Normal 0.9-4.3 [facility] Comment on above: Performed By: #### C BC, MG, GFR, ADIFF, BMP, ANEU #### [address] [address] Lymphocytes/100 WBC (Bld) 15.5 % Low 20.0-40.0 [facility] Comment on above: Performed By: #### C BC, MG, GFR, ADIFF, BMP, ANEU #### [address] [address] Monocyte, Absolute 0.6 10 3/mcL Normal 0.1-1.4 [facility] Comment on above: Performed By: #### C BC, MG, GFR, ADIFF, BMP, ANEU #### [address] [address] Monocytes/100 WBC (Bld) 11.2 % Normal 2.0-13.0 [facility] Comment on above: Performed By: #### C BC, MG, GFR, ADIFF, BMP, ANEU #### [address] [address] Neutrophils/100 WBC (Bld) 70.8 % Normal 50.0-75.0 [facility] Comment on above: Performed By: #### C BC, MG, GFR, ADIFF, BMP, ANEU #### [address] [address] .GFRon 11-28-2024 Estimated Glomerular Filtration Rate 107 ml/min/1.73sqm Normal [facility] Comment on above: Result Comment: [...] BC, MG, GFR, ADIFF, BMP, ANEU #### [place] [address] .NEUABSon 11-28-2024 Neutrophil, Absolute 4.1 10 3/mcL Normal 2.3-8.1 [facility] Comment on above: Performed By: #### C BC, MG, GFR, ADIFF, BMP, ANEU #### [place] [id number] BMPon 11-28-2024 BUN/Creatinine Ratio 11.7 ratio Normal 10.0-22.0 [facility] Comment on above: Performed By: #### C BC, MG, GFR, ADIFF, BMP, ANEU #### [address] [address] Calcium [Mass/Vol] 9.2 mg/dL Normal 8.7-10.4 [facility] Comment on above: Performed By: #### C BC, MG, GFR, ADIFF, BMP, ANEU #### [address] [address] Chloride [Moles/Vol] 101 mmol/L Normal 98-110 [facility] Comment on above: Performed By: #### C BC, MG, GFR, ADIFF, BMP, ANEU #### [place] [id number] CO2 [Moles/Vol] 31 mmol/L Normal 22-32 [facility] Comment on above: Performed By: #### C BC, MG, GFR, ADIFF, BMP, ANEU #### [place] [address] Creatinine [Mass/Vol] 0.77 mg/dL Normal 0.60-1.40 [facility] Comment on above: Result Comment: Test ing performed on [employer] analyzer using enzymatic creatinine methodology. Performed By: #### C BC, MG, GFR, ADIFF, BMP, ANEU #### [place] [id number] Electrolyte Balance 5.0 mEq/L Normal 4.0-15.0 [facility] Comment on above: Performed By: #### C BC, MG, GFR, ADIFF, BMP, ANEU #### [place] [id number] Glucose [Mass/Vol] 100 mg/dL Normal 70-110 [facility] Comment on above: Performed By: #### C BC, MG, GFR, ADIFF, BMP, ANEU #### [place] [id number] Potassium [Moles/Vol] 4.0 mmol/L Normal 3.5-5.0 [facility] Comment on above: Performed By: #### C BC, MG, GFR, ADIFF, BMP, ANEU #### [place] [id number] Sodium [Moles/Vol] 137 mmol/L Normal 136-145 [facility] Comment on above: Performed By: #### C BC, MG, GFR, ADIFF, BMP, ANEU #### [address] [address] Urea nitrogen [Mass/Vol] 9.0 mg/dL Normal 8.0-22.0 [facility] Comment on above: Performed By: #### C BC, MG, GFR, ADIFF, BMP, ANEU #### [address] [address] CBCon 11-28-2024 Erythrocyte distribution width (RBC) [Ratio] 15.1 % Normal 11.5-15.5 [facility] Comment on above: Performed By: #### C BC, MG, GFR, ADIFF, BMP, ANEU #### [place] [address] Hematocrit (Bld) [Volume fraction] 42.1 % Normal 40.0-52.0 [facility] Comment on above: Performed By: #### C BC, MG, GFR, ADIFF, BMP, ANEU #### [place] [address] Hgb 13.8 G/dL Normal 13.0-17.5 [facility] Comment on above: Performed By: #### C BC, MG, GFR, ADIFF, BMP, ANEU #### [place] [address] MCH (RBC) [Entitic mass] 29.0 pg Normal 27.0-33.0 [facility] Comment on above: Performed By: #### C BC, MG, GFR, ADIFF, BMP, ANEU #### [place] [address] MCHC 32.8 G/dL Normal 32.0-36.0 [facility] Comment on above: Performed By: #### C BC, MG, GFR, ADIFF, BMP, ANEU #### [place] [address] MCV (RBC) [Entitic vol] 88.3 fL Normal 81.0-100.0 [facility] Comment on above: Performed By: #### C BC, MG, GFR, ADIFF, BMP, ANEU #### [place] [address] Platelet 195 10 3/mcL Normal 150-450 [facility] Comment on above: Performed By: #### C BC, MG, GFR, ADIFF, BMP, ANEU #### [place] [address] Platelet mean volume (Bld) [Entitic vol] 8.4 fL Normal 6.4-10.5 [facility] Comment on above: Performed By: #### C BC, MG, GFR, ADIFF, BMP, ANEU #### [facility] [address] [place] [address] RBC 4.77 10 6/mcL Normal 4.50-6.00 [facility] Comment on above: Performed By: #### C BC, MG, GFR, ADIFF, BMP, ANEU #### [facility] [address] [place] [address] WBC 5.8 10 3/mcL Normal 4.5-10.8 [facility] Comment on above: Performed By: #### C BC, MG, GFR, ADIFF, BMP, ANEU #### [facility] [address] [place] [address] LABORATORYOrdered By: Moustapha Winslow on 11-28-2024 Blood Glucose Testing Reason Routine (11/28/24 5:00 PM) [facility] Glucose [Mass/Vol] 89 mg/dL Normal 70 - 110 mg/dL [facility] LABORATORYOrdered By: Andrea Mcgarry on 11-28-2024 Blood Glucose Testing Reason Routine (11/28/24 12:01 PM) [facility] Glucose [Mass/Vol] 91 mg/dL Normal 70 - 110 mg/dL [facility] Blood Glucose Testing Reason Routine (11/28/24 8:15 AM) [facility] Glucose [Mass/Vol] 93 mg/dL Normal 70 - 110 mg/dL [facility] LABORATORYOrdered By: SYSTEM SYSTEM on 11-28-2024 Basophils (Bld) [#/Vol] 0.0 103/mcL Normal 0.0 - 0.3 10^3/mcL AH Workflow SS Basophils/100 WBC (Bld) 0.8 % Normal 0.0 - 2.5 % AH Workflow SS Calcium [Mass/Vol] 9.2 mg/dL Normal 8.7 - 10. 4 mg/dL AH ADM SS Chloride [Moles/Vol] 101 mmol/L Normal 98 - 11 0 mEq/L AH ADM SS CO2 [Moles/Vol] 31 mmol/L Normal 22 - 32 mEq/L ADM SS Creatinine [Mass/Vol] 0.77 mg/dL Normal 0.60 - 1.40 mg/dL ADM SS Comment on above: Interpretive Data: T esting performed on [employer] analyzer using enzymatic creatinine methodology. Electrolyte Balance [...] 42.1 % Normal 40.0 - 52.0 % Workflow SS Hemoglobin (Bld) [Mass/Vol] 13.8 G/dL Normal 13.0 - 17.5 G/dL Workflow SS Lymphocytes (Bld) [#/Vol] 0.9 103/mcL Normal 0.9 - 4.3 10^3/mcL Workflow SS Lymphocytes/100 WBC (Bld) 15.5 % Low 20.0 - 40.0 % Workflow SS MCH (RBC) [Entitic mass] 29.0 [...] mEq/L AH ADM SS Urea nitrogen [Mass/Vol] 9.0 mg/dL Normal 8.0 - 22.0 mg/dL AH ADM SS Urea nitrogen/Creatinine [Mass ratio] 11.7 ratio Normal 10.0 - 22.0 ratio AH ADM SS WBC (Bld) [#/Vol] 5.8 103/mcL Normal 4.5 - 10.8 10^3/mcL Workflow SS LABORATORYOrdered By: Sharyn nuñez on 11-27-2024 Time of Stated Blood Glucose [id number] [facility] .Auto Diffon 11-26-2024 Basophil, Absolute 0.0 10 3/mcL Normal 0.0-0.3 [facility] Comment on above: Performed By: #### C BC, MG, GFR, ADIFF, BMP, ANEU #### [facility] [address] [place] [address] Basophils/100 WBC (Bld) 0.4 % Normal 0.0-2.5 [facility] Comment on above: Performed By: #### C BC, MG, GFR, ADIFF, BMP, ANEU #### [address] [address] Eosinophil, Absolute 0.0 10 3/mcL Normal 0.0-0.7 [facility] Comment on above: Performed By: #### C BC, MG, GFR, ADIFF, BMP, ANEU #### [address] [address] Eosinophils/100 WBC (Bld) 0.7 % Normal 0.0-6.0 [facility] Comment on above: Performed By: #### C BC, MG, GFR, ADIFF, BMP, ANEU #### [address] [address] Lymphocyte, Absolute 0.8 10 3/mcL Low 0.9-4.3 [facility] Comment on above: Performed By: #### C BC, MG, GFR, ADIFF, BMP, ANEU #### [address] [address] Lymphocytes/100 WBC (Bld) 12.2 % Low 20.0-40.0 [facility] Comment on above: Performed By: #### C BC, MG, GFR, ADIFF, BMP, ANEU #### [address] [address] Monocyte, Absolute 0.7 10 3/mcL Normal 0.1-1.4 [facility] Comment on above: Performed By: #### C BC, MG, GFR, ADIFF, BMP, ANEU #### [address] [address] Monocytes/100 WBC (Bld) 11.2 % Normal 2.0-13.0 [facility] Comment on above: Performed By: #### C BC, MG, GFR, ADIFF, BMP, ANEU #### [address] [address] Neutrophils/100 WBC (Bld) 75.5 % High 50.0-75.0 [facility] Comment on above: Performed By: #### C BC, MG, GFR, ADIFF, BMP, ANEU #### [address] [address] .GFRon 11-26-2024 Estimated Glomerular Filtration Rate 103 ml/min/1.73sqm Normal [facility] Comment on above: Result Comment: [...] BC, MG, GFR, ADIFF, BMP, ANEU #### [place] [address] .NEUABSon 11-26-2024 Neutrophil, Absolute 4.9 10 3/mcL Normal 2.3-8.1 [facility] Comment on above: Performed By: #### C BC, MG, GFR, ADIFF, BMP, ANEU #### [place] [address] BMPon 11-26-2024 BUN/Creatinine Ratio 11.5 ratio Normal 10.0-22.0 [facility] Comment on above: Performed By: #### C BC, MG, GFR, ADIFF, BMP, ANEU #### [place] [id number] Calcium [Mass/Vol] 9.0 mg/dL Normal 8.7-10.4 [facility] Comment on above: Performed By: #### C BC, MG, GFR, ADIFF, BMP, ANEU #### [place] [address] Chloride [Moles/Vol] 100 mmol/L Normal 98-110 [facility] Comment on above: Performed By: #### C BC, MG, GFR, ADIFF, BMP, ANEU #### [address] [address] CO2 [Moles/Vol] 29 mmol/L Normal 22-32 [facility] Comment on above: Performed By: #### C BC, MG, GFR, ADIFF, BMP, ANEU #### [place] [address] Creatinine [Mass/Vol] 0.87 mg/dL Normal 0.60-1.40 [facility] Comment on above: Result Comment: Test ing performed on [employer] analyzer using enzymatic creatinine methodology. Performed By: #### C BC, MG, GFR, ADIFF, BMP, ANEU #### [place] [id number] Electrolyte Balance 6.0 mEq/L Normal 4.0-15.0 [facility] Comment on above: Performed By: #### C BC, MG, GFR, ADIFF, BMP, ANEU #### [place] [id number] Glucose [Mass/Vol] 131 mg/dL High 70-110 [facility] Comment on above: Performed By: #### C BC, MG, GFR, ADIFF, BMP, ANEU #### [place] [id number] Potassium [Moles/Vol] 4.4 mmol/L Normal 3.5-5.0 [facility] Comment on above: Performed By: #### C BC, MG, GFR, ADIFF, BMP, ANEU #### [place] [id number] Sodium [Moles/Vol] 135 mmol/L Low 136-145 [facility] Comment on above: Performed By: #### C BC, MG, GFR, ADIFF, BMP, ANEU #### [place] [id number] Urea nitrogen [Mass/Vol] 10.0 mg/dL Normal 8.0-22.0 [facility] Comment on above: Performed By: #### C BC, MG, GFR, ADIFF, BMP, ANEU #### [address] [address] CBCon 11-26-2024 Erythrocyte distribution width (RBC) [Ratio] 15.0 % Normal 11.5-15.5 [facility] Comment on above: Performed By: #### C BC, MG, GFR, ADIFF, BMP, ANEU #### [place] [address] Hematocrit (Bld) [Volume fraction] 42.6 % Normal 40.0-52.0 [facility] Comment on above: Performed By: #### C BC, MG, GFR, ADIFF, BMP, ANEU #### [place] [address] Hgb 14.2 G/dL Normal 13.0-17.5 [facility] Comment on above: Performed By: #### C BC, MG, GFR, ADIFF, BMP, ANEU #### [place] [address] MCH (RBC) [Entitic mass] 29.5 pg Normal 27.0-33.0 [facility] Comment on above: Performed By: #### C BC, MG, GFR, ADIFF, BMP, ANEU #### [place] [address] MCHC 33.4 G/dL Normal 32.0-36.0 [facility] Comment on above: Performed By: #### C BC, MG, GFR, ADIFF, BMP, ANEU #### [place] [address] MCV (RBC) [Entitic vol] 88.4 fL Normal 81.0-100.0 [facility] Comment on above: Performed By: #### C BC, MG, GFR, ADIFF, BMP, ANEU #### [place] [address] Platelet 140 10 3/mcL Low 150-450 [facility] Comment on above: Performed By: #### C BC, MG, GFR, ADIFF, BMP, ANEU #### [place] [address] Platelet mean volume (Bld) [Entitic vol] 8.6 fL Normal 6.4-10.5 [facility] Comment on above: Performed By: #### C BC, MG, GFR, ADIFF, BMP, ANEU #### [address] [address] RBC 4.82 10 6/mcL Normal 4.50-6.00 [facility] Comment on above: Performed By: #### C BC, MG, GFR, ADIFF, BMP, ANEU #### [address] [address] WBC 6.5 10 3/mcL Normal 4.5-10.8 [facility] Comment on above: Performed By: #### C BC, MG, GFR, ADIFF, BMP, ANEU #### [address] [address] LABORATORYOrdered By: SYSTEM SYSTEM on 11-26-2024 Basophils [...] above: Interpretive Data: T esting performed on [employer] analyzer using enzymatic creatinine methodology. Electrolyte Balance [...] 131 mg/dL High 70 - 110 mg/dL AH ADM SS Hematocrit (Bld) [Volume fraction] 42.6 [...] Routine cultures are held for 5 days. [facility] .Auto Diffon 11-25-2024 Basophil, Absolute 0.0 10 3/mcL Normal 0.0-0.3 [facility] Comment on above: Performed By: #### C BC, MG, GFR, ADIFF, BMP, ANEU #### [address] [address] Basophils/100 WBC (Bld) 0.4 % Normal 0.0-2.5 [facility] Comment on above: Performed By: #### C BC, MG, GFR, ADIFF, BMP, ANEU #### [address] [address] Eosinophil, Absolute 0.1 10 3/mcL Normal 0.0-0.7 [facility] Comment on above: Performed By: #### C BC, MG, GFR, ADIFF, BMP, ANEU #### [address] [address] Eosinophils/100 WBC (Bld) 0.6 % Normal 0.0-6.0 [facility] Comment on above: Performed By: #### C BC, MG, GFR, ADIFF, BMP, ANEU #### [address] [address] Lymphocyte, Absolute 0.8 10 3/mcL Low 0.9-4.3 [facility] Comment on above: Performed By: #### C BC, MG, GFR, ADIFF, BMP, ANEU #### [address] [address] Lymphocytes/100 WBC (Bld) 9.6 % Low 20.0-40.0 [facility] Comment on above: Performed By: #### C BC, MG, GFR, ADIFF, BMP, ANEU #### [address] [address] Monocyte, Absolute 0.8 10 3/mcL Normal 0.1-1.4 [facility] Comment on above: Performed By: #### C BC, MG, GFR, ADIFF, BMP, ANEU #### [address] [address] Monocytes/100 WBC (Bld) 9.3 % Normal 2.0-13.0 [facility] Comment on above: Performed By: #### C BC, MG, GFR, ADIFF, BMP, ANEU #### [address] [address] Neutrophils/100 WBC (Bld) 80.1 % High 50.0-75.0 [facility] Comment on above: Performed By: #### C BC, MG, GFR, ADIFF, BMP, ANEU #### [address] [address] .GFRon 11-25-2024 Estimated Glomerular Filtration Rate 102 ml/min/1.73sqm Normal [facility] Comment on above: Result Comment: [...] BC, MG, GFR, ADIFF, BMP, ANEU #### [place] [address] .NEUABSon 11-25-2024 Neutrophil, Absolute 7.1 10 3/mcL Normal 2.3-8.1 [facility] Comment on above: Performed By: #### C BC, MG, GFR, ADIFF, BMP, ANEU #### [place] [address] BCIDon 11-25-2024 Acinetobacter carol-baumanii complex Not detected Normal Not Detected [facility] Comment on above: Performed By: #### A DIFF, ANEU, BMP, CBC, GFR #### [place] [address] Bacteroides fragilis Not detected Normal Not Detected [facility] Comment on above: Performed By: #### A DIFF, ANEU, BMP, CBC, GFR #### [place] [address] BCID Comment See Comment Normal [facility] Comment on above: Result Comment: [...] appropriate) to follow. Performed By: #### A DIFF, ANEU, BMP, CBC, GFR #### [place] [address] Moiz albicans Not detected Normal Not Detected [facility] Comment on above: Performed By: #### A DIFF, ANEU, BMP, CBC, GFR #### [place] [address] Moiz auris Not detected Normal Not Detected [facility] Comment on above: Performed By: #### A DIFF, ANEU, BMP, CBC, GFR #### [place] [address] Moiz glabrata Not detected Normal Not Detected [facility] Comment on above: Performed By: #### A DIFF, ANEU, BMP, CBC, GFR #### [place] [address] Moiz krusei Not detected Normal Not Detected [facility] Comment on above: Performed By: #### A DIFF, ANEU, BMP, CBC, GFR #### [place] [address] Moiz parapsilosis Not detected Normal Not Detected [facility] Comment on above: Performed By: #### A DIFF, ANEU, BMP, CBC, GFR #### [place] [address] Moiz tropicalis Not detected Normal Not Detected [facility] Comment on above: Performed By: #### A DIFF, ANEU, BMP, CBC, GFR #### [place] [address] Cryptococcus neoformans-gattii Not detected Normal Not Detected [facility] Comment on above: Performed By: #### A DIFF, ANEU, BMP, CBC, GFR #### [place] [address] CTX-M (ESBL) Not Applicable Normal Not Detected [facility] Comment on above: Performed By: #### A DIFF, ANEU, BMP, CBC, GFR #### [place] [address] E. Coli Not detected Normal Not Detected [facility] Comment on above: Performed By: #### A DIFF, ANEU, BMP, CBC, GFR #### [place] [address] Enterobacter cloacae Complex Not detected Normal Not Detected [facility] Comment on above: Performed By: #### A DIFF, ANEU, BMP, CBC, GFR #### [place] [address] Enterobacterales Not detected Normal Not Detected [facility] Comment on above: Performed By: #### A DIFF, ANEU, BMP, CBC, GFR #### [place] [address] Enterococcus faecalis Not detected Normal Not Detected [facility] Comment on above: Performed By: #### A DIFF, ANEU, BMP, CBC, GFR #### [place] [address] Enterococcus faecium Not detected Normal Not Detected [facility] Comment on above: Performed By: #### A DIFF, ANEU, BMP, CBC, GFR #### [place] [address] Haemophilus influenzae Not detected Normal Not Detected [facility] Comment on above: Performed By: #### A DIFF, ANEU, BMP, CBC, GFR #### [place] [address] IMP (Carbapenemase) Not Applicable Normal Not Detected [facility] Comment on above: Performed By: #### A DIFF, ANEU, BMP, CBC, GFR #### [place] [address] Klebsiella aerogenes Not detected Normal Not Detected [facility] Comment on above: Performed By: #### A DIFF, ANEU, BMP, CBC, GFR #### [place] [address] Klebsiella oxytoca Not detected Normal Not Detected [facility] Comment on above: Performed By: #### A DIFF, ANEU, BMP, CBC, GFR #### [place] [address] Klebsiella pneumoniae group Not detected Normal Not Detected [facility] Comment on above: Performed By: #### A DIFF, ANEU, BMP, CBC, GFR #### [place] [address] KPC (Carbapenemase) Not Applicable Normal Not Detected [facility] Comment on above: Performed By: #### A DIFF, ANEU, BMP, CBC, GFR #### [address] [address] Listeria monocytogenes Not detected Normal Not Detected [facility] Comment on above: Performed By: #### A DIFF, ANEU, BMP, CBC, GFR #### [place] [address] MCR-1 (Colistin Resistance) Not Applicable Normal Not Detected [facility] Comment on above: Performed By: #### A DIFF, ANEU, BMP, CBC, GFR #### [place] [address] Mec A/C Not Applicable Normal Not Detected [facility] Comment on above: Performed By: #### A DIFF, ANEU, BMP, CBC, GFR #### [place] [address] Mec A/C-MREJ (MRSA) Not detected Normal Not Detected [facility] Comment on above: Performed By: #### A DIFF, ANEU, BMP, CBC, GFR #### [place] [address] NDM (Carbapenemase) Not Applicable Normal Not Detected [facility] Comment on above: Performed By: #### A DIFF, ANEU, BMP, CBC, GFR #### [place] [address] Neisseria meningitidis (Encapsalated) Not detected Normal Not Detected [facility] Comment on above: Performed By: #### A DIFF, ANEU, BMP, CBC, GFR #### [place] [address] OXA-48 like (Carbapenemase) Not Applicable Normal Not Detected [facility] Comment on above: Performed By: #### A DIFF, ANEU, BMP, CBC, GFR #### [place] [address] Proteus Not detected Normal Not Detected [facility] Comment on above: Performed By: #### A DIFF, ANEU, BMP, CBC, GFR #### [place] [address] Pseudomonas aeruginosa Not detected Normal Not Detected [facility] Comment on above: Performed By: #### A DIFF, ANEU, BMP, CBC, GFR #### [address] [address] S. agalactiae Org specific cx Ql (Vag fld) Not detected Normal Not Detected [facility] Comment on above: Performed By: #### A DIFF, ANEU, BMP, CBC, GFR #### [place] [address] Salmonella species Not detected Normal Not Detected [facility] Comment on above: Performed By: #### A DIFF, ANEU, BMP, CBC, GFR #### [place] [address] Serratia marcescens Not detected Normal Not Detected [facility] Comment on above: Performed By: #### A DIFF, ANEU, BMP, CBC, GFR #### [place] [address] Staphylococcus Detected Abnormal Not Detected [facility] Comment on above: Performed By: #### A DIFF, ANEU, BMP, CBC, GFR #### [place] [address] Staphylococcus aureus Detected Abnormal Not Detected [facility] Comment on above: Result Comment: If S taphylococcus aureus is Detected, an Infectious Disease physician consult is required on identification. Performed By: #### A DIFF, ANEU, BMP, CBC, GFR #### [place] [address] Staphylococcus epidermidis Not detected Normal Not Detected [facility] Comment on above: Performed By: #### A DIFF, ANEU, BMP, CBC, GFR #### [place] [address] Staphylococcus lugdunensis Not detected Normal Not Detected [facility] Comment on above: Performed By: #### A DIFF, ANEU, BMP, CBC, GFR #### [place] [address] Stenotrophomonas maltophilia Not detected Normal Not Detected [facility] Comment on above: Performed By: #### A DIFF, ANEU, BMP, CBC, GFR #### [place] [address] Streptococcus Not detected Normal Not Detected [facility] Comment on above: Performed By: #### A DIFF, ANEU, BMP, CBC, GFR #### [place] [address] Streptococcus pneumoniae Not detected Normal Not Detected [facility] Comment on above: Performed By: #### A DIFF, ANEU, BMP, CBC, GFR #### [place] [address] Streptococcus pyogenes Not detected Normal Not Detected [facility] Comment on above: Performed By: #### A DIFF, ANEU, BMP, CBC, GFR #### [place] [address] Van A/B Not Applicable Normal Not Detected [facility] Comment on above: Performed By: #### A DIFF, ANEU, BMP, CBC, GFR #### [place] [address] VIM (Carbapenemase) Not Applicable Normal Not Detected [facility] Comment on above: Performed By: #### A DIFF, ANEU, BMP, CBC, GFR #### [place] [address] BMPon 11-25-2024 BUN/Creatinine Ratio 15.7 ratio Normal 10.0-22.0 [facility] Comment on above: Performed By: #### C BC, MG, GFR, ADIFF, BMP, ANEU #### [place] [address] Calcium [Mass/Vol] 9.1 mg/dL Normal 8.7-10.4 [facility] Comment on above: Performed By: #### C BC, MG, GFR, ADIFF, BMP, ANEU #### [place] [address] Chloride [Moles/Vol] 100 mmol/L Normal 98-110 [facility] Comment on above: Performed By: #### C BC, MG, GFR, ADIFF, BMP, ANEU #### [place] [address] CO2 [Moles/Vol] 24 mmol/L Normal 22-32 [facility] Comment on above: Performed By: #### C BC, MG, GFR, ADIFF, BMP, ANEU #### [place] [address] Creatinine [Mass/Vol] 0.89 mg/dL Normal 0.60-1.40 [facility] Comment on above: Result Comment: Test ing performed on [employer] analyzer using enzymatic creatinine methodology. Performed By: #### C BC, MG, GFR, ADIFF, BMP, ANEU #### [place] [address] Electrolyte Balance 12.0 mEq/L Normal 4.0-15.0 [facility] Comment on above: Performed By: #### C BC, MG, GFR, ADIFF, BMP, ANEU #### [place] [address] Glucose [Mass/Vol] 108 mg/dL Normal 70-110 [facility] Comment on above: Performed By: #### C BC, MG, GFR, ADIFF, BMP, ANEU #### [place] [address] Potassium [Moles/Vol] 3.8 mmol/L Normal 3.5-5.0 [facility] Comment on above: Performed By: #### C BC, MG, GFR, ADIFF, BMP, ANEU #### [place] [id number] Sodium [Moles/Vol] 136 mmol/L Normal 136-145 [facility] Comment on above: Performed By: #### C BC, MG, GFR, ADIFF, BMP, ANEU #### [place] [id number] Urea nitrogen [Mass/Vol] 14.0 mg/dL Normal 8.0-22.0 [facility] Comment on above: Performed By: #### C BC, MG, GFR, ADIFF, BMP, ANEU #### [place] [id number] CBCon 11-25-2024 Erythrocyte distribution width (RBC) [Ratio] 15.3 % Normal 11.5-15.5 [facility] Comment on above: Order Comment: QNS Performed By: #### C BC, MG, GFR, ADIFF, BMP, ANEU #### [place] [id number] Hematocrit (Bld) [Volume fraction] 44.6 % Normal 40.0-52.0 [facility] Comment on above: Order Comment: QNS Performed By: #### C BC, MG, GFR, ADIFF, BMP, ANEU #### [place] [address] Hgb 14.9 G/dL Normal 13.0-17.5 [facility] Comment on above: Order Comment: QNS Performed By: #### C BC, MG, GFR, ADIFF, BMP, ANEU #### [place] [address] MCH (RBC) [Entitic mass] 29.2 pg Normal 27.0-33.0 [facility] Comment on above: Order Comment: QNS Performed By: #### C BC, MG, GFR, ADIFF, BMP, ANEU #### [place] [address] MCHC 33.4 G/dL Normal 32.0-36.0 [facility] Comment on above: Order Comment: QNS Performed By: #### C BC, MG, GFR, ADIFF, BMP, ANEU #### [place] [address] MCV (RBC) [Entitic vol] 87.6 fL Normal 81.0-100.0 [facility] Comment on above: Order Comment: QNS Performed By: #### C BC, MG, GFR, ADIFF, BMP, ANEU #### [place] [address] Platelet 183 10 3/mcL Normal 150-450 [facility] Comment on above: Order Comment: QNS Performed By: #### C BC, MG, GFR, ADIFF, BMP, ANEU #### [place] [address] Platelet mean volume (Bld) [Entitic vol] 8.3 fL Normal 6.4-10.5 [facility] Comment on above: Order Comment: QNS Performed By: #### C BC, MG, GFR, ADIFF, BMP, ANEU #### [place] [address] RBC 5.08 10 6/mcL Normal 4.50-6.00 [facility] Comment on above: Order Comment: QNS Performed By: #### C BC, MG, GFR, ADIFF, BMP, ANEU #### [facility] [address] [place] [address] WBC 8.9 10 3/mcL Normal 4.5-10.8 [facility] Comment on above: Order Comment: QNS Performed By: #### C BC, MG, GFR, ADIFF, BMP, ANEU #### [address] [address] LABORATORYOrdered By: SYSTEM SYSTEM on 11-25-2024 Basophils [...] 24 mmol/L Normal 22 - 32 mEq/L ADM SS Creatinine [Mass/Vol] 0.89 mg/dL Normal 0.60 - 1.40 mg/dL ADM SS Comment on above: Interpretive Data: T esting performed on [employer] analyzer using enzymatic creatinine methodology. Electrolyte Balance [...] 110 mg/dL AH ADM SS Magnesium [Mass/Vol] 2.1 mg/dL Normal 1.6 - 2 .4 mg/dL AH ADM SS Potassium [Moles/Vol] 3.8 mmol/L Normal 3.5 - 5.0 mEq/L AH ADM SS Sodium [Moles/Vol] 136 mmol/L Normal 136 - 145 mEq/L AH ADM SS Urea nitrogen [Mass/Vol] 14.0 mg/dL Normal 8.0 - 22.0 mg/dL AH ADM SS Urea nitrogen/Creatinine [Mass ratio] 15.7 ratio Normal 10.0 - 22.0 ratio AH ADM SS MGon 11-25-2024 Magnesium [Mass/Vol] 2.1 mg/dL Normal 1.6-2.4 [facility] Comment on above: Performed By: #### C BC, MG, GFR, ADIFF, BMP, ANEU #### [place] [address] No Panel Informationon 11-25 GSAER Gram Positive Cocci in clusters [facility] Microscopic examination of blood, culture Culture has been received in lab and is no growth to date. Routine cultures are held for 5 days. [facility] Microscopic examination of blood, culture Staphylococcus coagulase negative Staphylococcus coagulase negative #2 Staphylococcus coagulase negative #3 Isolated from aerobe bottle only. 1 out of 2 sets positive Organism is a potential contaminant. Clinical Significance undetermined. Please contact Microbiology if further work-up is required. [facility] XR ANKLE MINIMUM 3 VIEWS LEF [...] 11/25/2024 7:46:46 PM Ordering Provider: SUZE MISHRA [facility] XR ANKLE MINIMUM 3 VIEWS [facility] 11-25-2024 XR ANKLE MINIMUM 3 VIEWS RIGHT [...] structures from prior exam. Interpreted by: Trace Clark Preliminary Report By: Trace Clark Electronically signed By Trace Clark Dictated Date: 11/25/2024 7:35:44 PM Prelim Date: 11/25/2024 7:39:01 PM Sign Date: 11/25/2024 7:39:01 PM Ordering Provider: SUZE MISHRA Interpreted by: Trace Clark Preliminary Report By: Trace Clark Electronically signed By Trace Clark Dictated Date: 11/25/2024 7:35:44 PM Prelim Date: 11/25/2024 7:39:01 PM Sign Date: 11/25/2024 7:39:01 PM Ordering Provider: SUZE MISHRA [facility] MAIN XR TIBIA/FIBULA 2 VIEWS [facility] 11-25-2024 XR TIBIA/FIBULA 2 VIEWS RIGHT [...] 11/25/2024 7:42:39 PM Ordering Provider: ORI TOMLIN Normal [facility] .Auto Diffon 11-24-2024 Basophil, Absolute 0.0 10 3/mcL Normal 0.0-0.3 [facility] Comment on above: Performed By: #### C BC, MG, GFR, ADIFF, BMP, ANEU #### [address] [address] Basophils/100 WBC (Bld) 0.2 % Normal 0.0-2.5 [facility] [place] [facility] Comment on above: Performed By: #### C BC, MG, GFR, ADIFF, BMP, ANEU #### [address] [address] Eosinophil, Absolute 0.0 10 3/mcL Normal 0.0-0.7 [facility] Comment on above: Performed By: #### C BC, MG, GFR, ADIFF, BMP, ANEU #### [address] [address] Eosinophils/100 WBC (Bld) 0.2 % Normal 0.0-6.0 [facility] Comment on above: Performed By: #### C BC, MG, GFR, ADIFF, BMP, ANEU #### [address] [address] Lymphocyte, Absolute 1.2 10 3/mcL Normal 0.9-4.3 [facility] Comment on above: Performed By: #### C BC, MG, GFR, ADIFF, BMP, ANEU #### [address] [address] Lymphocytes/100 WBC (Bld) 9.9 % Low 20.0-40.0 [facility] Comment on above: Performed By: #### C BC, MG, GFR, ADIFF, BMP, ANEU #### [address] [address] Monocyte, Absolute 1.6 10 3/mcL High 0.1-1.4 [facility] Comment on above: Performed By: #### C BC, MG, GFR, ADIFF, BMP, ANEU #### [address] [address] Monocytes/100 WBC (Bld) 12.6 % Normal 2.0-13.0 [facility] Comment on above: Performed By: #### C BC, MG, GFR, ADIFF, BMP, ANEU #### [address] [address] Neutrophils/100 WBC (Bld) 77.1 % High 50.0-75.0 [facility] Comment on above: Performed By: #### C BC, MG, GFR, ADIFF, BMP, ANEU #### [address] [address] Basophil, Absolute 0.1 10 3/mcL Normal 0.0-0.3 [facility] Comment on above: Performed By: #### A ELY REYES, BMP, MG, GFR, ADIFF, DIMER, CBC, PBNP, TROPHS #### [address] [address] Basophils/100 WBC (Bld) 0.4 % Normal 0.0-2.5 [facility] Comment on above: Performed By: #### A ELY REYES, BMP, MG, GFR, ADIFF, DIMER, CBC, PBNP, TROPHS #### [address] [address] Eosinophil, Absolute 0.0 10 3/mcL Normal 0.0-0.[address] [facility] Comment on above: Performed By: #### A ELY REYES, BMP, MG, GFR, ADIFF, DIMER, CBC, PBNP, TROPHS #### [address] [address] Eosinophils/100 WBC (Bld) 0.1 % Normal 0.0-6.0 [facility] Comment on above: Performed By: #### A ELY REYES, BMP, MG, GFR, ADIFF, DIMER, CBC, PBNP, TROPHS #### [address] [address] Lymphocyte, Absolute 1.0 10 3/mcL Normal 0.9-4.[address] [facility] Comment on above: Performed By: #### A ELY REYES, BMP, MG, GFR, ADIFF, DIMER, CBC, PBNP, TROPHS #### [address] [address] Lymphocytes/100 WBC (Bld) 5.8 % Low 20.0-40.0 [facility] Comment on above: Performed By: #### A ELY REYES, BMP, MG, GFR, ADIFF, DIMER, CBC, PBNP, TROPHS #### [address] [address] Monocyte, Absolute 1.9 10 3/mcL High 0.1-1.4 [facility] Comment on above: Performed By: #### A ELY REYES, BMP, MG, GFR, ADIFF, DIMER, CBC, PBNP, TROPHS #### [address] [address] Monocytes/100 WBC (Bld) 11.5 % Normal 2.0-13.0 [facility] Comment on above: Performed By: #### A ERIC, MDW, BMP, MG, GFR, ADIFF, DIMER, CBC, PBNP, TROPHS #### [facility] [address] [place], [place] [address] Neutrophils/100 WBC (Bld) 82.2 % High 50.0-75.0 [facility] Comment on above: Performed By: #### A ERIC, W, BMP, MG, GFR, ADIFF, DIMER, CBC, PBNP, TROPHS #### [place] [address] [place], [place] [address] .GFRon 11-24-2024 Estimated Glomerular Filtration Rate 102 ml/min/1.73sqm [facility] Comment on above: Result Comment: Stages [...] BC, MG, GFR, ADIFF, BMP, ANEU #### [address] [address] Estimated Glomerular Filtration Rate 93 ml/min/1.73sqm Normal [facility] Comment [...] GFR, ADIFF, DIMER, CBC, PBNP, TROPHS #### [address] [address] .MDWon 11-24-2024 Monocyte Distribution Width 19.29 Normal 0.00-20.00 [facility] Comment on above: Result Comment: For ED adult patients suspected of sepsis, MDW<=20.0 does not rule out sepsis or risk of sepsis Performed By: #### A ERIC, MDW, BMP, MG, GFR, ADIFF, DIMER, CBC, PBNP, TROPHS #### [address] [address] .NEUABSon 11-24-2024 Neutrophil, Absolute 9.7 10 3/mcL High 2.3-8.1 [facility] Comment on above: Performed By: #### C BC, MG, GFR, ADIFF, BMP, ANEU #### [address] [address] Neutrophil, Absolute 13.6 10 3/mcL High 2.3-8.1 [facility] Comment on above: Performed By: #### A ERICMDW, BMP, MG, GFR, ADIFF, DIMER, CBC, PBNP, TROPHS #### [address] [address] [facility] BUN/Creatinine Ratio 10.0 ratio Normal 10.0-22.0 [facility] Comment on above: Performed By: #### C BC, MG, GFR, ADIFF, BMP, ANEU #### [address] [address] Calcium [Mass/Vol] 9.2 mg/dL Normal 8.7-10.4 [facility] Comment on above: Performed By: #### C BC, MG, GFR, ADIFF, BMP, ANEU #### [address] [address] Chloride [Moles/Vol] 99 mmol/L Normal 98-110 [facility] Comment on above: Performed By: #### C BC, MG, GFR, ADIFF, BMP, ANEU #### [address] [address] CO2 [Moles/Vol] 23 mmol/L Normal 22-32 [facility] Comment on above: Performed By: #### C BC, MG, GFR, ADIFF, BMP, ANEU #### [address] [address] Creatinine [Mass/Vol] 0.90 mg/dL Normal 0.60-1.40 [facility] Comment on above: Result Comment: Test ing performed on [employer] analyzer using enzymatic creatinine methodology. Performed By: #### C BC, MG, GFR, ADIFF, BMP, ANEU #### [place] [id number] Electrolyte Balance 12.0 mEq/L Normal 4.0-15.0 [facility] Comment on above: Performed By: #### C BC, MG, GFR, ADIFF, BMP, ANEU #### [place] [id number] Glucose [Mass/Vol] 109 mg/dL Normal 70-110 [facility] Comment on above: Performed By: #### C BC, MG, GFR, ADIFF, BMP, ANEU #### [place] [id number] Potassium [Moles/Vol] 4.1 mmol/L Normal 3.5-5.0 [facility] Comment on above: Performed By: #### C BC, MG, GFR, ADIFF, BMP, ANEU #### [address] [address] Sodium [Moles/Vol] 134 mmol/L Low 136-145 [facility] Comment on above: Performed By: #### C BC, MG, GFR, ADIFF, BMP, ANEU #### [address] [address] Urea nitrogen [Mass/Vol] 9.0 mg/dL Normal 8.0-22.0 [facility] Comment on above: Performed By: #### C BC, MG, GFR, ADIFF, BMP, ANEU #### [address] [address] BUN/Creatinine Ratio 11 ratio Normal 7-27 [facility] Comment on above: Performed By: #### A ELY REYES, BMP, MG, GFR, ADIFF, DIMER, CBC, PBNP, TROPHS #### [address] [address] Calcium [Mass/Vol] 8.7 mg/dL Normal 8.4-10.2 [facility] Comment on above: Performed By: #### A ELY REYES, BMP, MG, GFR, ADIFF, DIMER, CBC, PBNP, TROPHS #### [address] [address] Chloride [Moles/Vol] 99 mmol/L Normal 98-107 [facility] Comment on above: Performed By: #### A ELY REYES, BMP, MG, GFR, ADIFF, DIMER, CBC, PBNP, TROPHS #### [address] [address] CO2 [Moles/Vol] 28 mmol/L Normal 22-29 [facility] Comment on above: Performed By: #### A ELY REYES, JULIÁN, MG, GFR, ADIFF, DIMER, CBC, PBNP, TROPHS #### [address] [address] Creatinine [Mass/Vol] 0.97 mg/dL Normal 0.67-1.17 [facility] Comment on above: Performed By: #### A ELY REYES, JULIÁN, MG, GFR, ADIFF, DIMER, CBC, PBNP, TROPHS #### [address] [address] Electrolyte Balance 6.0 mEq/L Normal 4.0-15.0 [facility] Comment on above: Performed By: #### A ELY REYES, BMP, MG, GFR, ADIFF, DIMER, CBC, PBNP, TROPHS #### [address] [address] Glucose [Mass/Vol] 130 mg/dL High 70-105 [facility] Comment on above: Performed By: #### A ELY REYES, BMP, MG, GFR, ADIFF, DIMER, CBC, PBNP, TROPHS #### [address] [address] Potassium [Moles/Vol] 4.9 mmol/L Normal 3.5-5.1 [facility] Comment on above: Performed By: #### A ELY REYES, BMP, MG, GFR, ADIFF, DIMER, CBC, PBNP, TROPHS #### [address] [address] Sodium [Moles/Vol] 133 mmol/L Low 136-145 [facility] Comment on above: Performed By: #### A ELY REYES, BMP, MG, GFR, ADIFF, DIMER, CBC, PBNP, TROPHS #### [address] [address] Urea nitrogen [Mass/Vol] 11 mg/dL Normal 7-18 [facility] Comment on above: Performed By: #### A ELY REYES, BMP, MG, GFR, ADIFF, DIMER, CBC, PBNP, TROPHS #### [address] [address] CBCon 11-24-2024 Erythrocyte distribution width (RBC) [Ratio] 15.1 % Normal 11.5-15.5 [facility] Comment on above: Performed By: #### C BC, MG, GFR, ADIFF, BMP, ANEU #### [address] [address] Hematocrit (Bld) [Volume fraction] 48.7 % Normal 40.0-52.0 [facility] Comment on above: Performed By: #### C BC, MG, GFR, ADIFF, BMP, ANEU #### [address] [address] Hgb 15.7 G/dL Normal 13.0-17.5 [facility] Comment on above: Performed By: #### C BC, MG, GFR, ADIFF, BMP, ANEU #### [address] [address] MCH (RBC) [Entitic mass] 28.3 pg Normal 27.0-33.0 [facility] Comment on above: Performed By: #### C BC, MG, GFR, ADIFF, BMP, ANEU #### [place] [address] MCHC 32.3 G/dL Normal 32.0-36.0 [facility] Comment on above: Performed By: #### C BC, MG, GFR, ADIFF, BMP, ANEU #### [place] [address] MCV (RBC) [Entitic vol] 87.7 fL Normal 81.0-100.0 [facility] Comment on above: Performed By: #### C BC, MG, GFR, ADIFF, BMP, ANEU #### [place] [address] Platelet 190 10 3/mcL Normal 150-450 [facility] Comment on above: Performed By: #### C BC, MG, GFR, ADIFF, BMP, ANEU #### [place] [address] Platelet mean volume (Bld) [Entitic vol] 8.0 fL Normal 6.4-10.5 [facility] Comment on above: Performed By: #### C BC, MG, GFR, ADIFF, BMP, ANEU #### [place] [address] RBC 5.56 10 6/mcL Normal 4.50-6.00 [facility] Comment on above: Performed By: #### C BC, MG, GFR, ADIFF, BMP, ANEU #### [place] [address] WBC 12.6 10 3/mcL High 4.5-10.8 [facility] Comment on above: Performed By: #### C BC, MG, GFR, ADIFF, BMP, ANEU #### [place] [address] Erythrocyte distribution width (RBC) [Ratio] 15.5 % Normal 11.5-15.5 [facility] Comment on above: Performed By: #### A ERIC, MDW, BMP, MG, GFR, ADIFF, DIMER, CBC, PBNP, TROPHS #### [place] [address] Hematocrit (Bld) [Volume fraction] 46.6 % Normal 40.0-52.0 [facility] Comment on above: Performed By: #### A ELY REYES, BMP, MG, GFR, ADIFF, DIMER, CBC, PBNP, TROPHS #### [place] [address] Hgb 15.4 G/dL Normal 13.0-17.5 [facility] Comment on above: Performed By: #### A ELY REYES, BMP, MG, GFR, ADIFF, DIMER, CBC, PBNP, TROPHS #### [place] [address] MCH (RBC) [Entitic mass] 28.8 pg Normal 27.0-33.0 [facility] Comment on above: Performed By: #### A ELY REYES, BMP, MG, GFR, ADIFF, DIMER, CBC, PBNP, TROPHS #### [place] [address] MCHC 33.0 G/dL Normal 32.0-36.0 [facility] Comment on above: Performed By: #### A ELY REYES, BMP, MG, GFR, ADIFF, DIMER, CBC, PBNP, TROPHS #### [place] [address] MCV (RBC) [Entitic vol] 87.4 fL Normal 81.0-100.0 [facility] Comment on above: Performed By: #### A ELY REYES, BMP, MG, GFR, ADIFF, DIMER, CBC, PBNP, TROPHS #### [place] [address] Platelet 240 10 3/mcL Normal 150-450 [facility] Comment on above: Performed By: #### A ELY REYES, BMP, MG, GFR, ADIFF, DIMER, CBC, PBNP, TROPHS #### [place] [id number] [place], [place] [address] Platelet mean volume (Bld) [Entitic vol] 7.8 fL Normal 6.4-10.5 [facility] Comment on above: Performed By: #### A ELY REYES, BMP, MG, GFR, ADIFF, DIMER, CBC, PBNP, TROPHS #### [place] [address] [place], [place] [address] RBC 5.34 10 6/mcL Normal 4.50-6.00 [facility] Comment on above: Performed By: #### A ELY REYES, BMP, MG, GFR, ADIFF, DIMER, CBC, PBNP, TROPHS #### [place] [id number] [place], [place] [address] WBC 16.6 10 3/mcL High 4.5-10.8 [facility] Comment on above: Performed By: #### A ELY REYES, BMP, MG, GFR, ADIFF, DIMER, CBC, PBNP, TROPHS #### [address] [address] [address] ANGIOGRAPHY CHEST W/CONTR [place] 11-24-2024 CT [...] 11/24/2024 6:01:11 AM Ordering Provider: CIRILO PATEL [facility] CT HEAD OR BRAIN W/O [...] 5:55:14 AM Ordering Provider: CIRILO PATEL Normal [facility] DIMERon 11-24-2024 D-Dimer 564 ng/mL D-DU High 0-230 [facility] Comment on above: [...] GFR, ADIFF, DIMER, CBC, PBNP, TROPHS #### [address] [address] LABORATORYOrdered By: SYSTEM SYSTEM on 11-24-2024 Lactate [...] ng/L Male: 0-54 ng/L Testing performed on [a]list games analyzer using direct chemiluminescent technology. TSH Qn [...] ng/L Male: 0-76 ng/L Testing performed on [employer] using a homogeneous sandwich chemiluminescent immunoassay based on [employer] technology. Urea nitrogen [Mass/Vol] 11 mg/dL Normal [...] 5:08 AM) Invalid Interpretation Code Not Detected Auto Microbiology [facility] BACTERIAL METHICILLIN RESISTANCE MECA+MECC GENES+SCCMEC+ORFX JUNCTION:PRTHR:PT:ISOLA TE/SPECIMEN:ORD:MOLGEN Not Detected *NA* (11/24/24 5:08 AM) Invalid Interpretation Code Not Detected Auto Microbiology [facility] BACTEROIDES FRAGILIS DNA:PRTHR:PT:BLD.POS GROWTH:ORD:NON-PROBE.AM P.TAR Not Detected *NA* (11/24/24 5:08 AM) Invalid Interpretation Code Not Detected Auto Microbiology [facility] BCID Comment See Comment 1 (11/24/24 5:08 AM) Normal AH Auto Microbiology [facility] Comment on above: Interpretive Data: A ntimicrobial [...] Lactic Acid Lvl 1.0 mmol/L Normal 0.5-2.2 [facility] Comment on above: Performed By: #### C BC, MG, GFR, ADIFF, BMP, ANEU #### [facility] [address] [place] [address] Lactic Acid Lvl 0.4 mmol/L Normal 0.4-2.0 [facility] Comment on above: Order Comment: order ed secondary to Sepsis Alert Performed By: #### A ERIC, MDW, BMP, MG, GFR, ADIFF, DIMER, CBC, PBNP, TROPHS #### [place] [id number] [place], [place] [address] MGon 11-24-2024 Magnesium [Mass/Vol] 2.3 mg/dL Normal 1.6-2.4 [facility] Comment on above: Performed By: #### C BC, MG, GFR, ADIFF, BMP, ANEU #### [address] [address] Magnesium [Mass/Vol] 1.6 mg/dL Low 1.8-2.4 [facility] Comment on above: Performed By: #### A ELY REYES, BMP, MG, GFR, ADIFF, DIMER, CBC, PBNP, TROPHS #### [address] [address] No Panel Informationon 11-24 Microscopic examination of blood, culture Culture has been received in lab and is no growth to date. Routine cultures are held for 5 days. [facility] PBNPon 11-24-2024 Natriuretic peptide B (Bld) [Mass/Vol] 4325 pg/mL High 0-900 [facility] Comment on above: Performed By: #### C BC, MG, GFR, ADIFF, BMP, ANEU #### [address] [address] Natriuretic peptide B (Bld) [Mass/Vol] 5358 pg/mL High 0-125 [facility] Comment on above: Result Comment: NT-p roBNP results of less than 300 pg/mL effectively rules out acute congestive heart failure with 99% negative predictive value. Performed By: #### A ELY REYES, BMP, MG, GFR, ADIFF, DIMER, CBC, PBNP, TROPHS #### [address] [address] TROPHSon 11-24-2024 High Sensitivity Troponin I 8 ng/L Normal 0-54 [facility] Comment on above: Result Comment: High Sensitive Troponin I Reference Ranges: Female: 0-34 ng/L Male: 0-54 ng/L Testing performed on [employer] IM analyzer using direct chemiluminescent technology. Performed By: #### C BC, MG, GFR, ADIFF, BMP, ANEU #### [facility] [address] [place] [address] High Sensitivity Troponin I 19 ng/L Normal 0-76 [facility] Comment on above: Result Comment: High Sensitive Troponin I Reference Ranges: Female: 0-51 ng/L Male: 0-76 ng/L Testing performed on [employer] using a homogeneous sandwich chemiluminescent immunoassay based on [employer] technology. Performed By: #### A MD ERICW, BMP, MG, GFR, ADIFF, DIMER, CBC, PBNP, TROPHS #### [facility] [address] [place], [place] [address] TSHon 11-24-2024 TSH 0.855 mIU/mL Normal 0.550-4.780 [facility] Comment on above: Performed By: #### C BC, MG, GFR, ADIFF, BMP, ANEU #### [place] [address] [place] [address] XR CHEST 1 VIEWon 11-24-2024 XR CHEST 1 VIEW ORIGINAL EXAMINATION: ONE XRAY VIEW OF THE CHEST 11/24/2024 2:01 pm COMPARISON: October 02, 2024 HISTORY: ORDERING SYSTEM PROVIDED HISTORY: Reason for Exam: SOB FINDINGS: Mild cardiomegaly is present without vascular congestion. No infiltrate or pleural fluid is visible. No acute osseous finding. IMPRESSION: Mild cardiomegaly, no acute process. Interpreted by: Melissa Ontiveros MD Preliminary Report By: Melissa Ontiveros MD Electronically signed By Melissa Ontiveros MD Dictated Date: 11/24/2024 2:02:59 PM Prelim Date: 11/24/2024 2:03:25 PM Sign Date: 11/24/2024 2:03:25 PM Ordering Provider: KARLENE BARCENAS Interpreted by: Melissa Ontiveros MD Preliminary Report By: Melissa Ontiveros MD Electronically signed By Melissa Ontiveros MD Dictated Date: 11/24/2024 2:02:59 PM Prelim Date: 11/24/2024 2:03:25 PM Sign Date: 11/24/2024 2:03:25 PM Ordering Provider: KARLENE BARCENAS [facility] Anion gap in Serum or Plasma Ordered By: Dolly Marino on 11-06-2024 Anion gap [Moles/Vol] 9 mmol/L - [facility] BUN/creatinine ratioOrdered By: Dolly Marino on 11-06-2024 Urea nitrogen/Creatinine [Mass ratio] 14.9 mg/mg - [facility] Basic Metabolic Profile (BMP )on 11-06-2024 BUN/CRE 14.9 RATIO Normal - [facility] Comment on above: Order Comment: 210 Performed By: #### L [id number] ####[facility] [address] [place], [address] Calcium [Mass/Vol] 9.2 mg/dL Normal 7.6-11.0 [facility] Comment on above: Order Comment: 210 Performed By: #### L [id number] ####[facility] [address] [place], [address] Chloride [Moles/Vol] 100 mmol/L Normal 98-108 [facility] [facility] Comment on above: Order Comment: 210 Performed By: #### L 500.2500 ####[facility] [address] [place], [address] CO2 [Moles/Vol] 27.9 mmol/L Normal 21.0-32.0 [facility] Comment on above: Order Comment: 210 Performed By: #### L 500.2500 ####[facility] [address] [place], [address] Creatinine [Mass/Vol] 0.87 mg/dL Normal 0.70-1.20 [facility] Comment on above: Order Comment: 210 Performed By: #### L 500.2500 ####[facility] [address] [place], [address] GAP 9 Normal 5-15 [facility] Comment on above: Order Comment: 210 Performed By: #### L 500.2500 ####[facility] [address] [place], [address] GFR/1.73 sq M.predicted among non-blacks MDRD (S/P/Bld) [Vol rate/Area] 103 mL/min/{1.73_m2} Normal >60 [facility] Comment on above: Order Comment: 210 Result Comment: mL/m in/1.73m2 CKD-EPI Creatinine Equation (2020) Performed By: #### L 500.2500 ####[facility] [address] [place], [address] Glucose [Mass/Vol] 104 mg/dL High 70-99 [facility] Comment on above: Order Comment: 210 Performed By: #### L 500.2500 ####[facility] [address] [place], [address] Potassium [Moles/Vol] 4.4 mmol/L Normal 3.3-5.1 [facility] Comment on above: Order Comment: 210 Performed By: #### L 500.2500 ####[facility] [address] [place], [address] Sodium [Moles/Vol] 136 mmol/L Normal 133-145 [facility] Comment on above: Order Comment: 210 Performed By: #### L 500.2500 ####[facility] [address] [place], [address] Urea nitrogen [Mass/Vol] 13 mg/dL Normal 4-19 [facility] Comment on above: Order Comment: 210 Performed By: #### L 500.2500 ####[facility] [address] [place], [address] Carbon dioxide, total [Moles /volume] in Central venous bloodOrdered By: Dolly Marino on 11-06-2024 CO2 [Moles/Vol] 27.9 mmol/L 21.0-32.0 [facility] Chloride assayOrdered By: Darrin Marino on 11-06-2024 Chloride [Moles/Vol] 100 mmol/L 98-108 [facility] Glomerular filtration rate ( GFR) estimation/1.73 sq m using serum, plasma, or whole bOrdered By: Dolly Marino on 11-06-2024 GFR/1.73 sq M.predicted among non-blacks MDRD (S/P/Bld) [Vol rate/Area] 103 mL/min/{1.73_m2} >60 [facility] Comment on above: mL/min/1.73m2 CKD-EP I Creatinine Equation (2020) Potassium measurement (mass/ volume)Ordered By: Dolly Marino on 11-06-2024 Potassium (Unsp spec) [Mass/Vol] 4.4 mmol/L 3.3-5.1 [facility] Serum creatinine measurement (mass/volume)Ordered By: Dolly Marino on 11-06-2024 Creatinine [Mass/Vol] 0.87 mg/dL 0.70-1.20 [facility] Serum glucose measurement (m ass/volume)Ordered By: Dolly Marino on 11-06-2024 Glucose [Mass/Vol] 104 mg/dL High 70-99 [facility] Serum or plasma calcium scott urement (mass/volume)Ordered By: Dolly Marino on 11-06-2024 Calcium [Mass/Vol] 9.2 mg/dL 7.6-11.0 [facility] Serum or plasma urea nitroge n measurement (mass/volume)Ordered By: Dolly Marino on 11-06-2024 Urea nitrogen [Mass/Vol] 13 mg/dL 4-19 [facility] Sodium levelOrdered By: Missael Marino on 11-06-2024 Sodium [Moles/Vol] 136 mmol/L 133-145 [facility] Absolute lymphocyte countOrd ered By: Dolly Marino on 11-04-2024 Lymphocytes Auto (Unsp spec) [#/Vol] 1.05 10*3/uL 0.83-4.51 [facility] Absolute neutrophil countOrd ered By: Dolly Marino on 11-04-2024 Neutrophils (Bld) [#/Vol] 2.8 10*3/uL 2.0-7.7 [facility] Anion gap in Serum or Plasma Ordered By: Dolly Marino on 11-04-2024 Anion gap [Moles/Vol] 10 mmol/L 5-15 [facility] Automated lymphocyte count a s percentage of total leukocytesOrdered By: Dolly Marino on 11-04-2024 Lymphocytes/100 WBC Auto (Unsp spec) 23.5 % - [facility] BUN/creatinine ratioOrdered By: Dolly Marino on 11-04-2024 Urea nitrogen/Creatinine [Mass ratio] 12.7 mg/mg - [facility] Basic Metabolic Profile (BMP )on 11-04-2024 BUN/CRE 12.7 RATIO Normal - [facility] Comment on above: Order Comment: 210.1 Performed By: #### L 500.2500, L501.5200, L100.0100 ####[facility] [address] [place], [address] Calcium [Mass/Vol] 9.0 mg/dL Normal 7.6-11.0 [facility] Comment on above: Order Comment: 210.1 Performed By: #### L 500.2500, L501.5200, L100.0100 ####[facility] [address] [place], [address] Chloride [Moles/Vol] 101 mmol/L Normal 98-108 [facility] Comment on above: Order Comment: 210.1 Performed By: #### L 500.2500, L501.5200, L100.0100 ####[facility] [address] [place], [address] CO2 [Moles/Vol] 28.1 mmol/L Normal 21.0-32.0 [facility] Comment on above: Order Comment: 210.1 Performed By: #### L 500.2500, L501.5200, L100.0100 ####[facility] [address] [place], [address] Creatinine [Mass/Vol] 0.80 mg/dL Normal 0.70-1.20 [facility] Comment on above: Order Comment: 210.1 Performed By: #### L 500.2500, L501.5200, L100.0100 ####[facility] [address] [place], [address] GAP 10 Normal 5-15 [facility] Comment on above: Order Comment: 210.1 Performed By: #### L 500.2500, L501.5200, L100.0100 ####[facility] [address] [place], [address] GFR/1.73 sq M.predicted among non-blacks MDRD (S/P/Bld) [Vol rate/Area] 106 mL/min/{1.73_m2} Normal >60 [facility] Comment on above: Order Comment: 210.1 Result Comment: mL/m in/1.73m2 CKD-EPI Creatinine Equation (2020) Performed By: #### L 500.2500, L501.5200, L100.0100 ####[facility] [address] [place], [address] Glucose [Mass/Vol] 96 mg/dL Normal 70-99 [facility] Comment on above: Order Comment: 210.1 Performed By: #### L 500.2500, L501.5200, L100.0100 ####[facility] [address] [place], [address] Potassium [Moles/Vol] 4.2 mmol/L Normal 3.3-5.1 [facility] Comment on above: Order Comment: 210.1 Result Comment: Hemo lysis present, Results??could be affected.?? Performed By: #### L 500.2500, L501.5200, L100.0100 ####[facility] [address] [place], [address] Sodium [Moles/Vol] 139 mmol/L Normal 133-145 [facility] Comment on above: Order Comment: 210.1 Performed By: #### L 500.2500, L501.5200, L100.0100 ####[facility] [address] [place], [address] Urea nitrogen [Mass/Vol] 10 mg/dL Normal 4-19 [facility] Comment on above: Order Comment: 210.1 Performed By: #### L 500.2500, L501.5200, L100.0100 ####[facility] [address] [place], [address] Basophil percentageOrdered B y: Dolly Evansgenovevaryley on 11-04-2024 Basophils/100 WBC (Bld) 0.9 % 0-1 [facility] CBC W/Diff, Automatedon Absolute Lymph 1.05 X10 3/uL Normal 0.83-4.51 [facility] Comment on above: Order Comment: 210.1 Performed By: #### L 500.2500, L501.5200, L100.0100 ####[facility] [address] [place], [address] Absolute Neut 2.8 X10 3/uL Normal 2.0-7.7 [facility] Comment on above: Order Comment: 210.1 Performed By: #### L 500.2500, L501.5200, L100.0100 ####[facility] [address] [place], [address] Basophils/100 WBC (Bld) 0.9 % Normal 0-1 [facility] Comment on above: Order Comment: 210.1 Performed By: #### L 500.2500, L501.5200, L100.0100 ####[facility] [address] [place], [address] Eosinophils/100 WBC (Bld) 1.6 % Normal 0-5 [facility] Comment on above: Order Comment: 210.1 Performed By: #### L 500.2500, L501.5200, L100.0100 ####[facility] [address] [place], [address] Erythrocyte distribution width (RBC) [Ratio] 15.8 % High 11.6-14.6 [facility] Comment on above: Order Comment: 210.1 Performed By: #### L 500.2500, L501.5200, L100.0100 ####[facility] [address] [place], [address] Hematocrit (Bld) [Volume fraction] 41.8 % Normal 40-54 [facility] Comment on above: Order Comment: 210.1 Performed By: #### L 500.2500, L501.5200, L100.0100 ####[facility] [address] [place], [address] Hemoglobin (Bld) [Mass/Vol] 13.1 g/dL Normal 13.0-16.5 [facility] Comment on above: Order Comment: 210.1 Performed By: #### L 500.2500, L501.5200, L100.0100 ####[facility] [address] [place], [address] IG% 0.400 Normal 0.0-0.9 [facility] Comment on above: Order Comment: 210.1 Result Comment: IG% - Immature Granulocytes (promyelocytes, myelocytes andmetamyelocytes) > 1% indicates that a LEFT SHIFT is Present. Performed By: #### L 500.2500, L501.5200, L100.0100 ####[facility] [address] [place], [address] Lymphocytes/100 WBC (Bld) 23.5 % Normal 19-41 [facility] Comment on above: Order Comment: 210.1 Performed By: #### L 500.2500, L501.5200, L100.0100 ####[facility] [address] [place], [address] MCH (RBC) [Entitic mass] 28.6 pg Normal 27.0-32.0 [facility] Comment on above: Order Comment: 210.1 Performed By: #### L 500.2500, L501.5200, L100.0100 ####[facility] [address] [place], [address] MCHC (RBC) [Mass/Vol] 31.3 g/dL Low 32-36 [facility] Comment on above: Order Comment: 210.1 Performed By: #### L 500.2500, L501.5200, L100.0100 ####[facility] [address] [place], [address] MCV (RBC) [Entitic vol] 91.3 fL Normal 80-94 [facility] Comment on above: Order Comment: 210.1 Performed By: #### L 500.2500, L501.5200, L100.0100 ####[facility] [address] [place], [address] Monocytes/100 WBC (Bld) 11.4 % High 0-10 [facility] Comment on above: Order Comment: 210.1 Performed By: #### L 500.2500, L501.5200, L100.0100 ####[facility] [address] [place], [address] Neutrophils/100 WBC (Bld) 62.2 % Normal 47-70 [facility] Comment on above: Order Comment: 210.1 Performed By: #### L 500.2500, L501.5200, L100.0100 ####[facility] [address] [place], [address] Nucleated RBC (Bld) [#/Vol] 0 10*3/uL Normal 0-5 [facility] Comment on above: Order Comment: 210.1 Performed By: #### L 500.2500, L501.5200, L100.0100 ####[facility] [address] [place], [address] Platelet mean volume (Bld) [Entitic vol] 9.7 fL Normal 6.2-12.0 [facility] Comment on above: Order Comment: 210.1 Performed By: #### L 500.2500, L501.5200, L100.0100 ####[facility] [address] [place], [address] Platelets (Bld) [#/Vol] 185 10*3/uL Normal 150-450 [facility] Comment on above: Order Comment: 210.1 Performed By: #### L 500.2500, L501.5200, L100.0100 ####[facility] [address] [place], [address] RBC (Bld) [#/Vol] 4.58 10*6/uL Low 4.6-6.2 [facility] Comment on above: Order Comment: 210.1 Performed By: #### L 500.2500, L501.5200, L100.0100 ####[facility] [address] [place], [address] RDW SD 53.2 fl High 35.1-43.9 [facility] Comment on above: Order Comment: 210.1 Performed By: #### L 500.2500, L501.5200, L100.0100 ####[facility] [address] [place], [address] WBC (Bld) [#/Vol] 4.5 10*3/uL Normal 4.4-11.0 [facility] Comment on above: Order Comment: 210.1 Performed By: #### L 500.2500, L501.5200, L100.0100 ####[facility] [address] [place], [address] Carbon dioxide, total [Moles /volume] in Central venous bloodOrdered By: Dolly Marino on 11-04-2024 CO2 [Moles/Vol] 28.1 mmol/L 21.0-32.0 [facility] Chloride assayOrdered By: Darrin Marino on 11-04-2024 Chloride [Moles/Vol] 101 mmol/L 98-108 [facility] Eosinophil percentageOrdered By: Dolly Marino on 11-04-2024 Eosinophils/100 WBC (Bld) 1.6 % 0-5 [facility] Erythrocyte distribution wid th ratioOrdered By: Dolly Marino on 11-04-2024 Erythrocyte distribution width (RBC) [Ratio] 15.8 % High 11.6-14.6 [facility] Erythrocyte distribution wid th standard deviationOrdered By: Dolly Marino on 11-04-2024 Erythrocyte distribution width (RBC) [Ratio] 53.2 fl High 35.1-43.9 [facility] Glomerular filtration rate ( GFR) estimation/1.73 sq m using serum, plasma, or whole bOrdered By: Dolly Marino on 11-04-2024 GFR/1.73 sq M.predicted among non-blacks MDRD (S/P/Bld) [Vol rate/Area] 106 mL/min/{1.73_m2} >60 [facility] Comment on above: mL/min/1.73m2 CKD-EP I Creatinine Equation (2020) Hematocrit Auto (Bld) [Volum e fraction]Ordered By: Dolly Marino on 11-04-2024 Hematocrit (Bld) [Volume fraction] 41.8 % 40-54 [facility] Hemoglobin measurementOrdere d By: Dolly Marino on 11-04-2024 Hemoglobin (Bld) [Mass/Vol] 13.1 g/dL 13.0-16.5 [facility] Immature granulocytes/100 WB C Auto (Bld)Ordered By: Dolly Marino on 11-04-2024 Immature granulocytes/100 WBC (Bld) 0.400 % 0.0-0.9 [facility] Comment on above: IG% - Immature Granu locytes (promyelocytes, myelocytes and metamyelocytes) > 1% indicates that a LEFT SHIFT is Present. MCV (mean corpuscular volume ) determinationOrdered By: Dolly Marino on 11-04-2024 MCV (RBC) [Entitic vol] 91.3 fL 80-94 [facility] Magnesiumon 11-04-2024 Magnesium [Mass/Vol] 2.2 mg/dL Normal 1.5-2.2 [facility] Comment on above: Order Comment: 210.1 Performed By: #### L 500.2500, L501.5200, L100.0100 ####[facility] [address] [place], [address] Magnesium measurement (mass/ volume)Ordered By: Dolly Marino on 11-04-2024 Magnesium (Unsp spec) [Mass/Vol] 2.2 mg/dL 1.5-2.2 [facility] Mean corpuscular hemoglobin (MCH) determinationOrdered By: Dolly Marino on 11-04-2024 MCH (RBC) [Entitic mass] 28.6 pg 27.0-32.0 [facility] Mean corpuscular hemoglobin concentration (MCHC) determinationOrdered By: Dolly Marino on 11-04-2024 MCHC (RBC) [Mass/Vol] 31.3 g/dL Low 32-36 [facility] Mean platelet volume determi nationOrdered By: Dolly Marino on 11-04-2024 Platelet mean volume (Bld) [Entitic vol] 9.7 fL 6.2-12.0 [facility] Monocyte percentageOrdered B y: Dolly Marino on 11-04-2024 Monocytes/100 WBC (Bld) 11.4 % High 0-10 [facility] Neutrophil percentageOrdered By: Dolly Marino on 11-04-2024 Neutrophils/100 WBC (Bld) 62.2 % 47-70 [facility] Nucleated red blood cell per centageOrdered By: Dolly Marino on 11-04-2024 Nucleated RBC/100 WBC (Bld) [Ratio] 0 % 0-5 [facility] Platelet countOrdered By: Darrin Marino on 11-04-2024 Platelets (Bld) [#/Vol] 185 10*3/uL 150-450 [facility] Potassium measurement (mass/ volume)Ordered By: Dolly Marino on 11-04-2024 Potassium (Unsp spec) [Mass/Vol] 4.2 mmol/L 3.3-5.1 [facility] Comment on above: Hemolysis present, R esults could be affected. RBC Auto (Bld) [#/Vol]Ordere d By: Dolly Marino on 11-04-2024 RBC (Bld) [#/Vol] 4.58 10*6/uL Low 4.6-6.2 [facility] Serum creatinine measurement (mass/volume)Ordered By: Dolly Marino on 11-04-2024 Creatinine [Mass/Vol] 0.80 mg/dL 0.70-1.20 [facility] Serum glucose measurement (m ass/volume)Ordered By: Dolly Marino on 11-04-2024 Glucose [Mass/Vol] 96 mg/dL 70-99 [facility] Serum or plasma calcium scott urement (mass/volume)Ordered By: Dolly Marino on 11-04-2024 Calcium [Mass/Vol] 9.0 mg/dL 7.6-11.0 [facility] Serum or plasma urea nitroge n measurement (mass/volume)Ordered By: Dolly Marino on 11-04-2024 Urea nitrogen [Mass/Vol] 10 mg/dL 4-19 [facility] Sodium levelOrdered By: Missael Marino on 11-04-2024 Sodium [Moles/Vol] 139 mmol/L 133-145 [facility] White blood cell (WBC) count Ordered By: Dolly Marino on 11-04-2024 WBC (Bld) [#/Vol] 4.5 10*3/uL 4.4-11.0 [facility] Calculated very low density lipoprotein (VLDL) cholesterol measurementOrdered By: Dolly Marino on 10-30-2024 Calculated very low density lipoprotein (VLDL) cholesterol measurement 26 mg/dL 5-40 [facility] Hemoglobin A1con 10-30-2024 HbA1c (Bld) [Mass fraction] 5.8 % High <=5.6 [facility] Comment on above: Result Comment: Norm al < 5.7 % Prediabetic 5.7 - 6.4 % Diabetic >or= 6.5 % Please note range changes. Performed By: #### L 501.9985, L500.4100 ####[facility] [address] [place], [place], [address] Hemoglobin A1c percentageOrd ered By: Dolly Marino on 10-30-2024 HbA1c (Bld) [Mass fraction] 5.8 % High <5.7 [facility] Comment on above: Normal < 5.7 % Predi abetic 5.7 - 6.4 % Diabetic >or= 6.5 % Please note range changes. LDL calc ser/plasOrdered By: Dolly Marino on 10-30-2024 Cholesterol in LDL [Mass/Vol] 34 mg/dL [facility] Comment on above: Elonocvvpj=957-412 m g/dL & Higher Roha=729 mg/dL or greater Lipid Profileon 10-30-2024 CHOL:HDL 3.64 Normal [facility] Comment on above: Performed By: #### L 501.9985, L500.4100 ####[facility] [address] [place], [address] Cholesterol [Mass/Vol] 83 mg/dL Normal <=200 [facility] Comment on above: Result Comment: Chol esterol level, Desirable <200 mg/dLBorderline high cholesterol 200-239 mg/dLHigh cholesterol >=240 mg/dLRecommendations of the NCEP Adult Treatment Panel for thefollowing risk-cutoff thresholds for the [place] Americanpulation. Performed By: #### L 501.9985, L500.4101 ####[facility] [address] [place], [address] Cholesterol in HDL [Mass/Vol] 23 mg/dL Low [facility] Comment on above: Result Comment: Fern onal Cholesterol Education Program (NCEP) guidelines:<40 mg/dL: Low HDL-cholesterol (major risk factor for CHD)>= 60 mg/dL: High HDL-cholesterol (negative risk factor forCHD)HDL-cholesterol is affected by a number of factors, e.g.smoking, exercise, hormones, sex and age. Performed By: #### L 501.9985, L500.4100 ####[facility] [address] [place], [address] Cholesterol in LDL [Mass/Vol] 34 mg/dL Normal [facility] Comment on above: Result Comment: Bord suckfx=215-078 mg/dL Higher Nmek=037 mg/dL or greater Performed By: #### L 501.9985, L500.4100 ####[facility] [address] [place], [address] Cholesterol in VLDL [Mass/Vol] 26 mg/dL Normal 5-40 [facility] Comment on above: Performed By: #### L 501.9985, L500.4100 ####[facility] [address] [place], [address] Triglyceride [Mass/Vol] 129 mg/dL Normal [facility] Comment on above: Result Comment: The drugs N-Acetylcysteine and Metamizole may falselydepress this assay.Normal range: <150 mg/dLBorderline High: 150-199 mg/dLHigh: 200-499 mg/dLVery High: >500 mg/dL Performed By: #### L 501.9985, L500.4100 ####[facility] [address] [place], [address] Screening total cholesterol/ high density lipoprotein (HDL) cholesterol ratioOrdered By: Dolly Marino on 10-30-2024 Cholesterol.total/Chio sterol in HDL [Mass ratio] 3.64 {ratio} [facility] Serum or plasma cholesterol in HDL measurement (mass/volume)Ordered By: Dolly Marino on 10-30-2024 Cholesterol in HDL [Mass/Vol] 23 mg/dL Low >40 [facility] Comment on above: National Cholesterol Education Program (NCEP) guidelines:<40 mg/dL: Low HDL-cholesterol (major risk factor for CHD)>= 60 mg/dL: High HDL-cholesterol (negative risk factor for CHD)HDL-cholesterol is affected by a number of factors, e.g. smoking, exercise, hormones, sex and age. Serum or plasma cholesterol measurement (mass/volume)Ordered By: Dolly Mraino on 10-30-2024 Cholesterol [Mass/Vol] 83 mg/dL <201 [facility] Comment on above: Cholesterol level, D esirable <200 mg/dLBorderline high cholesterol 200-239 mg/dLHigh cholesterol >=240 mg/dLRecommendations of the NCEP Adult Treatment Panel for the following risk-cutoff thresholds for the [place] population. Triglycerides measurementOrd ered By: Dolly Marino on 10-30-2024 Triglyceride [Mass/Vol] 129 mg/dL <199 [facility] Comment on above: The drugs N-Acetylcy steine and Metamizole may falsely depress this assay. Normal range: <150 mg/dLBorderline High: 150-199 mg/dLHigh: 200-499 mg/dLVery High: >500 mg/dL Absolute lymphocyte countOrd ered By: Dolly Marino on 10-28-2024 Lymphocytes Auto (Unsp spec) [#/Vol] 1.07 10*3/uL 0.83-4.51 [facility] Absolute neutrophil countOrd ered By: Dolly Marino on 10-28-2024 Neutrophils (Bld) [#/Vol] 2.8 10*3/uL 2.0-7.7 [facility] Anion gap in Serum or Plasma Ordered By: Dolly Marino on 10-28-2024 Anion gap [Moles/Vol] 10 mmol/L 5-15 [facility] Automated blood erythrocyte countOrdered By: Dolly Marino on 10-28-2024 RBC (Bld) [#/Vol] 4.52 10*6/uL Low 4.6-6.2 [facility] [facility] Comment on above: Order Comment: 210 Performed By: #### L [id number], L501.5200, L500.4100, L501.1400, L100.0100, L500.2500, L506.1001 ####[facility] [address] [place], [place], [phone] Automated blood hematocrit ( percentage)Ordered By: Dolly Marino on 10-28-2024 Hematocrit (Bld) [Volume fraction] 41.2 % Normal 40-54 [facility] Comment on above: Order Comment: 210 Performed By: #### L [id number], L501.5200, L500.4100, L501.1400, L100.0100, L500.2500, L506.1001 ####[facility] [address] [place], [place], [phone] Automated lymphocyte count a s percentage of total leukocytesOrdered By: Dolly Marino on 10-28-2024 Lymphocytes/100 WBC Auto (Unsp spec) 24.0 % - [facility] BUN/creatinine ratioOrdered By: Dolly Marino on 10-28-2024 Urea nitrogen/Creatinine [Mass ratio] 13.8 mg/mg 10- [facility] Basic Metabolic Profile (BMP )on 10-28-2024 BUN/CRE 13.8 RATIO Normal -20 [facility] Comment on above: Order Comment: 210 Performed By: #### L [id number], L501.5200, L500.4100, L501.1400, L100.0100, L500.2500, L506.1001 ####[facility] [address] [place], [place], [phone] GAP 10 Normal 5-15 [facility] Comment on above: Order Comment: 210 Performed By: #### L [id number], L501.5200, L500.4100, L501.1400, L100.0100, L500.2500, L506.1001 ####[facility] [address] [place], [place], [phone] Potassium [Moles/Vol] 4.1 mmol/L Normal 3.3-5.1 [facility] Comment on above: Order Comment: 210 Performed By: #### L 501.9520, L501.5200, L500.4100, L501.1400, L100.0100, L500.2500, L506.1001 ####[facility] [address] [facility] [place], [address] Basophil percentageOrdered B y: Dolly Marino on 10-28-2024 Basophils/100 WBC (Bld) 0.7 % Normal 0-1 [facility] Comment on above: Order Comment: 210 Performed By: #### L 501.9520, L501.5200, L500.4100, L501.1400, L100.0100, L500.2500, L506.1001 ####[facility] [address] [facility]. [place], [place], [phone] CBC W/Diff, Automatedon Absolute Lymph 1.07 X10 3/uL Normal 0.83-4.51 [facility] Comment on above: Order Comment: 210 Performed By: #### L [id number], L501.5200, L500.4100, L501.1400, L100.0100, L500.2500, L506.1001 ####[facility] [address] [facility] [place], [address] Absolute Neut 2.8 X10 3/uL Normal 2.0-7.7 [facility] Comment on above: Order Comment: 210 Performed By: #### L [id number], L501.5200, L500.4100, L501.1400, L100.0100, L500.2500, L506.1001 ####[facility] [address] [facility] [place], [address] IG% 0.400 Normal 0.0-0.9 [facility] Comment on above: Order Comment: 210 Result Comment: IG% - Immature Granulocytes (promyelocytes, myelocytes andmetamyelocytes) > 1% indicates that a LEFT SHIFT is Present. Performed By: #### L 501.9520, L501.5200, L500.4100, L501.1400, L100.0100, L500.2500, L506.1001 ####[facility] [address] [place], [place], [phone] Lymphocytes/100 WBC (Bld) 24.0 % Normal 19-41 [facility] Comment on above: Order Comment: 210 Performed By: #### L 501.9520, L501.5200, L500.4100, L501.1400, L100.0100, L500.2500, L506.1001 ####[facility] [address] [place], [place], [phone] Nucleated RBC (Bld) [#/Vol] 0 10*3/uL Normal 0-5 [facility] Comment on above: Order Comment: 210 Performed By: #### L [id number], L501.5200, L500.4100, L501.1400, L100.0100, L500.2500, L506.1001 ####[facility] [address] [place], [place], [phone] RDW SD 53.1 fl High 35.1-43.9 [facility] Comment on above: Order Comment: 210 Performed By: #### L [id number], L501.5200, L500.4100, L501.1400, L100.0100, L500.2500, L506.1001 ####[facility] [address] [place], [place], [phone] Calculated very low density lipoprotein (VLDL) cholesterol measurementOrdered By: Dolly Marino on 10-28-2024 Calculated very low density lipoprotein (VLDL) cholesterol measurement 26 mg/dL 5-40 [facility] Carbon dioxide, total [Moles /volume] in Central venous bloodOrdered By: Dolly Marino on 10-28-2024 CO2 [Moles/Vol] 27.1 mmol/L Normal 21.0-32.0 [facility] Comment on above: Order Comment: 210 Performed By: #### L 501.9520, L501.5200, L500.4100, L501.1400, L100.0100, L500.2500, L506.1001 ####[facility] [address] [place], [address] Chloride assayOrdered By: Darrin Marino on 10-28-2024 Chloride [Moles/Vol] 98 mmol/L Normal 98-108 [facility] Comment on above: Order Comment: 210 Performed By: #### L [id number], L501.5200, L500.4100, L501.1400, L100.0100, L500.2500, L506.1001 ####[facility] [address] [place], [place], [address] Eosinophil percentageOrdered By: Dolly Marino on 10-28-2024 Eosinophils/100 WBC (Bld) 2.0 % Normal 0-5 [facility] Comment on above: Order Comment: 210 Performed By: #### L [id number], L501.5200, L500.4100, L501.1400, L100.0100, L500.2500, L506.1001 ####[facility] [address] [place], [address] Erythrocyte distribution wid th ratioOrdered By: Dolly Marino on 10-28-2024 Erythrocyte distribution width (RBC) [Ratio] 15.9 % High 11.6-14.6 [facility] Comment on above: Order Comment: 210 Performed By: #### L [id number], L501.5200, L500.4100, L501.1400, L100.0100, L500.2500, L506.1001 ####[facility] [address] [facility] [address] [place], [place], [phone] Erythrocyte distribution wid th standard deviationOrdered By: Dolly Marino on 10-28-2024 Erythrocyte distribution width (RBC) [Ratio] 53.1 fl High 35.1-43.9 [facility] Glomerular filtration rate ( GFR) estimation/1.73 sq m using serum, plasma, or whole bOrdered By: Dolly Marino on 10-28-2024 GFR/1.73 sq M.predicted among non-blacks MDRD (S/P/Bld) [Vol rate/Area] 108 mL/min/{1.73_m2} Normal >60 [facility] Comment on above: mL/min/1.73m2 CKD-EP I Creatinine Equation (2020) Order Comment: 210 Result Comment: mL/m in/1.73m2 CKD-EPI Creatinine Equation (2020) Performed By: #### L [id number], L501.5200, L500.4100, L501.1400, L100.0100, L500.2500, L506.1001 ####[facility] [address] [place], [address] Hemoglobin measurementOrdere d By: Dolly Marino on 10-28-2024 Hemoglobin (Bld) [Mass/Vol] 13.0 g/dL Normal 13.0-16.5 [facility] Comment on above: Order Comment: 210 Performed By: #### L [id number], L501.5200, L500.4100, L501.1400, L100.0100, L500.2500, L506.1001 ####[facility] [address] [place], [place], [phone] Immature granulocytes/100 WB C Auto (Bld)Ordered By: Dolly Marino on 10-28-2024 Immature granulocytes/100 WBC (Bld) 0.400 % 0.0-0.9 [facility] Comment on above: IG% - Immature Granu locytes (promyelocytes, myelocytes and metamyelocytes) > 1% indicates that a LEFT SHIFT is Present. LDL calc ser/plasOrdered By: Dolly Marino on 10-28-2024 Cholesterol in LDL [Mass/Vol] 46 mg/dL Normal [facility] Comment on above: Oirqrvmhky=393-642 m g/dL & Higher Icrf=549 mg/dL or greater Order Comment: 210 Result Comment: Bord autbbt=974-972 mg/dL Higher Tpnj=114 mg/dL or greater Performed By: #### L 501.9520, L501.5200, L500.4100, L501.1400, L100.0100, L500.2500, L506.1001 ####[facility] [address] [place], [address] Lipid Profileon 10-28-2024 CHOL:HDL 4.07 Normal [facility] Comment on above: Order Comment: 210 Performed By: #### L 501.9520, L501.5200, L500.4100, L501.1400, L100.0100, L500.2500, L506.1001 ####[facility] [address] [place], [address] Cholesterol in VLDL [Mass/Vol] 26 mg/dL Normal 5-40 [facility] Comment on above: Order Comment: 210 Performed By: #### L 501.9520, L501.5200, L500.4100, L501.1400, L100.0100, L500.2500, L506.1001 ####[facility] [address] [place], [address] MCV (mean corpuscular volume ) determinationOrdered By: Dolly Marino on 10-28-2024 MCV (RBC) [Entitic vol] 91.2 fL Normal 80-94 [facility] Comment on above: Order Comment: 210 Performed By: #### L 501.9520, L501.5200, L500.4100, L501.1400, L100.0100, L500.2500, L506.1001 ####[facility] [address] [place], [address] Magnesiumon 10-28-2024 Magnesium [Mass/Vol] 2.2 mg/dL Normal 1.5-2.2 [facility] Comment on above: Order Comment: 210 Performed By: #### L [id number], L501.5200, L500.4100, L501.1400, L100.0100, L500.2500, L506.1001 ####[facility] [address] [place], [place], [phone] Magnesium measurement (mass/ volume)Ordered By: Dolly Marino on 10-28-2024 Magnesium (Unsp spec) [Mass/Vol] 2.2 mg/dL 1.5-2.2 [facility] Mean corpuscular hemoglobin (MCH) determinationOrdered By: Dolly Marino on 10-28-2024 MCH (RBC) [Entitic mass] 28.8 pg Normal 27.0-32.0 [facility] Comment on above: Order Comment: 210 Performed By: #### L [id number], L501.5200, L500.4100, L501.1400, L100.0100, L500.2500, L506.1001 ####[facility] [address] [place], [place], [phone] Mean corpuscular hemoglobin concentration (MCHC) determinationOrdered By: Dolly Marino on 10-28-2024 MCHC (RBC) [Mass/Vol] 31.6 g/dL Low 32-36 [facility] Comment on above: Order Comment: 210 Performed By: #### L [id number], L501.5200, L500.4100, L501.1400, L100.0100, L500.2500, L506.1001 ####[facility] [address] [facility] [place], [place], [phone] Mean platelet volume determi nationOrdered By: Dolly Marino on 10-28-2024 Platelet mean volume (Bld) [Entitic vol] 9.6 fL Normal 6.2-12.0 [facility] Comment on above: Order Comment: 210 Performed By: #### L [id number], L501.5200, L500.4100, L501.1400, L100.0100, L500.2500, L506.1001 ####[facility] [address] [facility] [address] [place], [place], [phone] Monocyte percentageOrdered B y: Dolly Marino on 10-28-2024 Monocytes/100 WBC (Bld) 11.0 % High 0-10 [facility] Comment on above: Order Comment: 210 Performed By: #### L 501.9520, L501.5200, L500.4100, L501.1400, L100.0100, L500.2500, L506.1001 ####[facility] [address] [place], [place], [phone] Neutrophil percentageOrdered By: Dolly Marino on 10-28-2024 Neutrophils/100 WBC (Bld) 61.9 % Normal 47-70 [facility] Comment on above: Order Comment: 210 Performed By: #### L 501.9520, L501.5200, L500.4100, L501.1400, L100.0100, L500.2500, L506.1001 ####[facility] [address] [place], [address] Nucleated red blood cell per centageOrdered By: Dolly Marino on 10-28-2024 Nucleated RBC/100 WBC (Bld) [Ratio] 0 % 0-5 [facility] Platelet countOrdered By: Darrin Marino on 10-28-2024 Platelets (Bld) [#/Vol] 154 10*3/uL Normal 150-450 [facility] Comment on above: Order Comment: 210 Performed By: #### L 501.9520, L501.5200, L500.4100, L501.1400, L100.0100, L500.2500, L506.1001 ####[facility] [address] [place], [place], [phone] Potassium measurement (mass/ volume)Ordered By: Dolly Marino on 10-28-2024 Potassium (Unsp spec) [Mass/Vol] 4.1 mmol/L 3.3-5.1 [facility] Screening total cholesterol/ high density lipoprotein (HDL) cholesterol ratioOrdered By: Dolly Marino on 10-28-2024 Cholesterol.total/Chio sterol in HDL [Mass ratio] 4.07 {ratio} [facility] Serum creatinine measurement (mass/volume)Ordered By: Dolly Marino on 10-28-2024 Creatinine [Mass/Vol] 0.74 mg/dL Normal 0.70-1.20 [facility] Comment on above: Order Comment: 210 Performed By: #### L 501.9520, L501.5200, L500.4100, L501.1400, L100.0100, L500.2500, L506.1001 ####[facility] [address] [place], [place], [phone] Serum glucose measurement (m ass/volume)Ordered By: Dolly Marino on 10-28-2024 Glucose [Mass/Vol] 108 mg/dL High 70-99 [facility] Comment on above: Order Comment: 210 Performed By: #### L 501.9520, L501.5200, L500.4100, L501.1400, L100.0100, L500.2500, L506.1001 ####[facility] [address] [place], [place], [phone] Serum or plasma calcium scott urement (mass/volume)Ordered By: Dolly Marino on 10-28-2024 Calcium [Mass/Vol] 8.9 mg/dL Normal 7.6-11.0 [facility] Comment on above: Order Comment: 210 Performed By: #### L 501.9520, L501.5200, L500.4100, L501.1400, L100.0100, L500.2500, L506.1001 ####[facility] [address] [place], [place], [phone] Serum or plasma cholesterol in HDL measurement (mass/volume)Ordered By: Dolly Marino on 10-28-2024 Cholesterol in HDL [Mass/Vol] 23 mg/dL Low [facility] Comment on above: National Cholesterol Education Program (NCEP) guidelines:<40 mg/dL: Low HDL-cholesterol (major risk factor for CHD)>= 60 mg/dL: High HDL-cholesterol (negative risk factor for CHD)HDL-cholesterol is affected by a number of factors, e.g. smoking, exercise, hormones, sex and age. Order Comment: 210 Result Comment: Fern onal Cholesterol Education Program (NCEP) guidelines:<40 mg/dL: Low HDL-cholesterol (major risk factor for CHD)>= 60 mg/dL: High HDL-cholesterol (negative risk factor forCHD)HDL-cholesterol is affected by a number of factors, e.g.smoking, exercise, hormones, sex and age. Performed By: #### L 501.9520, L501.5200, L500.4100, L501.1400, L100.0100, L500.2500, L506.1001 ####[facility] [address] [facility] [place], [address] Serum or plasma cholesterol measurement (mass/volume)Ordered By: Dolly Marino on 10-28-2024 Cholesterol [Mass/Vol] 95 mg/dL Normal <=200 [facility] Comment on above: Cholesterol level, D esirable <200 mg/dLBorderline high cholesterol 200-239 mg/dLHigh cholesterol >=240 mg/dLRecommendations of the NCEP Adult Treatment Panel for the following risk-cutoff thresholds for the [place] population. Order Comment: 210 Result Comment: Chol esterol level, Desirable <200 mg/dLBorderline high cholesterol 200-239 mg/dLHigh cholesterol >=240 mg/dLRecommendations of the NCEP Adult Treatment Panel for thefollowing risk-cutoff thresholds for the [place] Americanpopulation. Performed By: #### L 501.9520, L501.5200, L500.4100, L501.1400, L100.0100, L500.2500, L506.1001 ####[facility] [address] [facility] [place], [address] Serum or plasma urea nitroge n measurement (mass/volume)Ordered By: Dolly Marino on 10-28-2024 Urea nitrogen [Mass/Vol] 10 mg/dL Normal 4-19 [facility] Comment on above: Order Comment: 210 Performed By: #### L 501.9520, L501.5200, L500.4100, L501.1400, L100.0100, L500.2500, L506.1001 ####[facility] [address] [place], [place], [phone] Serum or plasma uric acid me asurement (mass/volume)Ordered By: Dolly Marino on 10-28-2024 Urate [Mass/Vol] 5.8 mg/dL 3.5-7.2 [facility] Comment on above: The drugs N-Acetylcy steine and Metamizole may falsely depress this assay. Sodium levelOrdered By: Missael Marino on 10-28-2024 Sodium [Moles/Vol] 135 mmol/L Normal 133-145 [facility] Comment on above: Order Comment: 210 Performed By: #### L 501.9520, L501.5200, L500.4100, L501.1400, L100.0100, L500.2500, L506.1001 ####[facility] [address] [place], [address] TSH DL <= 0.005 mIU/L QnOrde red By: Dolly Marino on 10-28-2024 TSH Qn 3.370 uIU/mL 0.300-4.200 [facility] Thyroid Stim Hormone (TSH)on 10-28-2024 TSH 3.370 uIU/mL Normal 0.300-4.200 [facility] Comment on above: Order Comment: 210 Performed By: #### L 501.9520, L501.5200, L500.4100, L501.1400, L100.0100, L500.2500, L506.1001 ####[facility] [address] [place], [address] Triglycerides measurementOrd ered By: Dolly Marino on 10-28-2024 Triglyceride [Mass/Vol] 129 mg/dL Normal [facility] Comment on above: The drugs N-Acetylcy steine and Metamizole may falsely depress this assay. Normal range: <150 mg/dLBorderline High: 150-199 mg/dLHigh: 200-499 mg/dLVery High: >500 mg/dL Order Comment: 210 Result Comment: The drugs N-Acetylcysteine and Metamizole may falselydepress this assay.Normal range: <150 mg/dLBorderline High: 150-199 mg/dLHigh: 200-499 mg/dLVery High: >500 mg/dL Performed By: #### L 501.9520, L501.5200, L500.4100, L501.1400, L100.0100, L500.2500, L506.1001 ####[facility] [address] [place], [place], [phone] Uric Acidon 10-28-2024 URIC 5.8 mg/dL Normal 3.5-7.2 [facility] Comment on above: Order Comment: 210 Result Comment: The drugs N-Acetylcysteine and Metamizole may falselydepress this assay. Performed By: #### L 501.9520, L501.5200, L500.4100, L501.1400, L100.0100, L500.2500, L506.1001 ####[facility] [address] [place], [place], [phone] Vitamin D,25 Hydroxyon 10-28 Vitamin D 25-OH < 6.0 Low 30-100 [facility] Comment on above: Order Comment: 210 Result Comment: Colleen min D StatusDeficiency: <20 ng/mL (50nmol/L)Insufficiency: 20-30 ng/mL (50-75 nmol/L)Sufficiency: 30-100 ng/mL (75-250 nmol/L)Toxicity: >100 ng/mL (>250 nmol/L) Performed By: #### L 501.9520, L501.5200, L500.4100, L501.1400, L100.0100, L500.2500, L506.1001 ####[facility] [address] [place], [place], [phone] White blood cell (WBC) count Ordered By: Dolly Marino on 10-28-2024 WBC (Bld) [#/Vol] 4.5 10*3/uL Normal 4.4-11.0 [facility] Comment on above: Order Comment: 210 Performed By: #### L [id number], L501.5200, L500.4100, L501.1400, L100.0100, L500.2500, L506.1001 ####[facility] [address] [place], [address] Anion gap in Serum or Plasma Ordered By: Dolly Marino on 10-24-2024 Anion gap [Moles/Vol] 9 mmol/L 5- [facility] BUN/creatinine ratioOrdered By: Dolly Marino on 10-24-2024 Urea nitrogen/Creatinine [Mass ratio] 14.6 mg/mg 10- [facility] Bilirubin, totalOrdered By: Dolly Marino on 10-24-2024 Bilirubin [Mass/Vol] 0.31 mg/dL 0.00-1.30 [facility] CBC-Complete Blood Cnt No Di ffon 10-24-2024 Erythrocyte distribution width (RBC) [Ratio] 15.6 % High 11.6-14.6 [facility] Comment on above: Performed By: #### L 100.0500, L500.4050 ####[facility] [address] [place], [address] Hematocrit (Bld) [Volume fraction] 40.1 % Normal 40-54 [facility] Comment on above: Performed By: #### L 100.0500, L500.4050 ####[facility] [address] [place], [address] Hemoglobin (Bld) [Mass/Vol] 12.7 g/dL Low 13.0-16.5 [facility] Comment on above: Performed By: #### L 100.0500, L500.4050 ####[facility] [address] [place], [address] MCH (RBC) [Entitic mass] 28.7 pg Normal 27.0-32.0 [facility] Comment on above: Performed By: #### L 100.0500, L500.4050 ####[facility] [address] [place], [address] MCHC (RBC) [Mass/Vol] 31.7 g/dL Low 32-36 [facility] Comment on above: Performed By: #### L 100.0500, L500.4050 ####[facility] [address] [place], [address] MCV (RBC) [Entitic vol] 90.7 fL Normal 80-94 [facility] Comment on above: Performed By: #### L 100.0500, L500.4050 ####[facility] [address] [place], [address] Platelet mean volume (Bld) [Entitic vol] 9.3 fL Normal 6.2-12.0 [facility] Comment on above: Performed By: #### L 100.0500, L500.4050 ####[facility] [address] [place], [address] Platelets (Bld) [#/Vol] 155 10*3/uL Normal 150-450 [facility] Comment on above: Performed By: #### L 100.0500, L500.4050 ####[facility] [address] [place], [address] RBC (Bld) [#/Vol] 4.42 10*6/uL Low 4.6-6.2 [facility] Comment on above: Performed By: #### L 100.0500, L500.4050 ####[facility] [address] [place], [address] RDW SD 51.8 fl High 35.1-43.9 [facility] Comment on above: Performed By: #### L 100.0500, L500.4050 ####[facility] [address] [place], [address] WBC (Bld) [#/Vol] 4.6 10*3/uL Normal 4.4-11.0 [facility] Comment on above: Performed By: #### L 100.0500, L500.4050 ####[facility] [address] [place], [address] Carbon dioxide, total [Moles /volume] in Central venous bloodOrdered By: Dolly Marino on 10-24-2024 CO2 [Moles/Vol] 29.2 mmol/L 21.0-32.0 [facility] Chloride assayOrdered By: Darrin Marino on 10-24-2024 Chloride [Moles/Vol] 99 mmol/L 98-108 [facility] Comprehensive Metabolic Prof ilon 10-24-2024 Albumin [Mass/Vol] 3.4 g/dL Low 3.5-5.0 [facility] Comment on above: Performed By: #### L 100.0500, L500.4050 ####[facility] [address] [place], [address] Albumin/Globulin [Mass ratio] 1.0 {ratio} Normal 0.9-2.4 [facility] Comment on above: Performed By: #### L 100.0500, L500.4050 ####[facility] [address] [place], [address] ALK PHOS 76 U/L Normal 40-129 [facility] Comment on above: Performed By: #### L 100.0500, L500.4050 ####[facility] [address] [place], [address] ALT [Catalytic activity/Vol] 6 U/L Normal <=46 [facility] Comment on above: Performed By: #### L 100.0500, L500.4050 ####[facility] [address] [place], [address] AST [Catalytic activity/Vol] 18 U/L Normal <=37 [facility] Comment on above: Performed By: #### L 100.0500, L500.4050 ####[facility] [address] [place], [address] Bilirubin [Mass/Vol] 0.31 mg/dL Normal 0.00-1.30 [facility] Comment on above: Performed By: #### L 100.0500, [id number] ####[facility] [address] [place], [address] BUN/CRE 14.6 RATIO Normal 10-20 [facility] Comment on above: Performed By: #### L 100.0500, [id number] ####[facility] [address] [place], [address] Calcium [Mass/Vol] 9.0 mg/dL Normal 7.6-11.0 [facility] Comment on above: Performed By: #### L 100.0500, [id number] ####[facility] [address] [place], [address] Chloride [Moles/Vol] 99 mmol/L Normal 98-108 [facility] Comment on above: Performed By: #### L 100.0500, [id number] ####[facility] [address] [place], [address] CO2 [Moles/Vol] 29.2 mmol/L Normal 21.0-32.0 [facility] Comment on above: Performed By: #### L 100.0500, [id number] ####[facility] [address] [place], [address] Creatinine [Mass/Vol] 0.65 mg/dL Low 0.70-1.20 [facility] Comment on above: Performed By: #### L 100.0500, [id number] ####[facility] [address] [place], [address] GAP 9 Normal 5-15 [facility] Comment on above: Performed By: #### L 100.0500, [id number] ####[facility] [address] [place], [address] GFR/1.73 sq M.predicted among non-blacks MDRD (S/P/Bld) [Vol rate/Area] 113 mL/min/{1.73_m2} Normal >60 [facility] Comment on above: Result Comment: mL/m in/1.73m2 CKD-EPI Creatinine Equation (2020) Performed By: #### L 100.0500, L500.4050 ####[facility] [address] [place], [address] Globulin (S) [Mass/Vol] 3.2 g/dL Normal 2.2-4.2 [facility] Comment on above: Performed By: #### L 100.0500, [id number] ####[facility] [address] [place], [address] Glucose [Mass/Vol] 113 mg/dL High 70-99 [facility] Comment on above: Performed By: #### L 100.0500, [id number] ####[facility] [address] [place], [address] Potassium [Moles/Vol] 3.8 mmol/L Normal 3.3-5.1 [facility] Comment on above: Performed By: #### L 100.0500, [id number] ####[facility] [address] [place], [address] Sodium [Moles/Vol] 137 mmol/L Normal 133-145 [facility] Comment on above: Performed By: #### L 100.0500, [id number] ####[facility] [address] [place], [address] T PROT 6.6 g/dL Normal 5.9-8.4 [facility] Comment on above: Performed By: #### L 100.0500, [id number] ####[facility] [address] [place], [address] Urea nitrogen [Mass/Vol] 10 mg/dL Normal 4-19 [facility] Comment on above: Performed By: #### L 100.0500, [id number] ####[facility] [address] [place], [address] Erythrocyte distribution wid th ratioOrdered By: Dolly Marino on 10-24-2024 Erythrocyte distribution width (RBC) [Ratio] 15.6 % High 11.6-14.6 [facility] Erythrocyte distribution wid th standard deviationOrdered By: Dolly Marino on 10-24-2024 Erythrocyte distribution width (RBC) [Ratio] 51.8 fl High 35.1-43.9 [facility] Glomerular filtration rate ( GFR) estimation/1.73 sq m using serum, plasma, or whole bOrdered By: Dolly Marino on 10-24-2024 GFR/1.73 sq M.predicted among non-blacks MDRD (S/P/Bld) [Vol rate/Area] 113 mL/min/{1.73_m2} >60 [facility] Comment on above: mL/min/1.73m2 CKD-EP I Creatinine Equation (2020) Hematocrit Auto (Bld) [Volum e fraction]Ordered By: Dolly Marino on 10-24-2024 Hematocrit (Bld) [Volume fraction] 40.1 % 40-54 [facility] Hemoglobin measurementOrdere d By: Dolly Marino on 10-24-2024 Hemoglobin (Bld) [Mass/Vol] 12.7 g/dL Low 13.0-16.5 [facility] Laboratory - Chemistry and C hemistry - challengeOrdered By: Dolly Marino on 10-24-2024 AST [Catalytic activity/Vol] 18 U/L <38 [facility] MCV (mean corpuscular volume ) determinationOrdered By: Dolly Marino on 10-24-2024 MCV (RBC) [Entitic vol] 90.7 fL 80-94 [facility] Mean corpuscular hemoglobin (MCH) determinationOrdered By: Dolly Marino on 10-24-2024 MCH (RBC) [Entitic mass] 28.7 pg 27.0-32.0 [facility] Mean corpuscular hemoglobin concentration (MCHC) determinationOrdered By: Dolly Marino on 10-24-2024 MCHC (RBC) [Mass/Vol] 31.7 g/dL Low 32-36 [facility] Mean platelet volume determi nationOrdered By: Dolly Marino on 10-24-2024 Platelet mean volume (Bld) [Entitic vol] 9.3 fL 6.2-12.0 [facility] Platelet countOrdered By: Darrin Marino on 10-24-2024 Platelets (Bld) [#/Vol] 155 10*3/uL 150-450 [facility] Potassium measurement (mass/ volume)Ordered By: Dolly Marino on 10-24-2024 Potassium (Unsp spec) [Mass/Vol] 3.8 mmol/L 3.3-5.1 [facility] RBC Auto (Bld) [#/Vol]Ordere d By: Dolly Marino on 10-24-2024 RBC (Bld) [#/Vol] 4.42 10*6/uL Low 4.6-6.2 [facility] Serum creatinine measurement (mass/volume)Ordered By: Dolly Marino on 10-24-2024 Creatinine [Mass/Vol] 0.65 mg/dL Low 0.70-1.20 [facility] Serum globulin measurementOr dered By: Dolly Marino on 10-24-2024 Globulin (S) [Mass/Vol] 3.2 g/dL 2.2-4.2 [facility] Serum glucose measurement (m ass/volume)Ordered By: Dolly Marino on 10-24-2024 Glucose [Mass/Vol] 113 mg/dL High 70-99 [facility] Serum or plasma alanine linda otransferase (ALT) measurementOrdered By: Dolly Marino on 10-24-2024 ALT [Catalytic activity/Vol] 6 U/L <47 [facility] Serum or plasma albumin scott urement (mass/volume)Ordered By: Dolly Marino on 10-24-2024 Albumin [Mass/Vol] 3.4 g/dL Low 3.5-5.0 [facility] Serum or plasma albumin/glob ulin mass ratioOrdered By: Dolly Marino on 10-24-2024 Albumin/Globulin [Mass ratio] 1.0 {ratio} 0.9-2.4 [facility] Serum or plasma alkaline kamaljit sphatase measurementOrdered By: Dolly Marino on 10-24-2024 ALP [Catalytic activity/Vol] 76 U/L 40-129 [facility] Serum or plasma calcium scott urement (mass/volume)Ordered By: Dolly Marino on 10-24-2024 Calcium [Mass/Vol] 9.0 mg/dL 7.6-11.0 [facility] Serum or plasma urea nitroge n measurement (mass/volume)Ordered By: Dolly Marino on 10-24-2024 Urea nitrogen [Mass/Vol] 10 mg/dL 4-19 [facility] Sodium levelOrdered By: Missael Marino on 10-24-2024 Sodium [Moles/Vol] 137 mmol/L 133-145 [facility] Total proteinOrdered By: Sahara Marino on 10-24-2024 Protein [Mass/Vol] 6.6 g/dL 5.9-8.4 [facility] White blood cell (WBC) count Ordered By: Dolly Marino on 10-24-2024 WBC (Bld) [#/Vol] 4.6 10*3/uL 4.4-11.0 [facility] LABORATORYOrdered By: Samanta Morin on 10-23-2024 Blood Glucose Testing Reason Routine (10/23/24 8:27 PM) [facility] Glucose [Mass/Vol] 168 mg/dL High 70 - 110 mg/dL [facility] LABORATORYOrdered By: Sarah Carrillo on 10-23-2024 Blood Glucose Testing Reason Routine (10/23/24 5:31 PM) [facility] Glucose [Mass/Vol] 146 mg/dL High 70 - 110 mg/dL [facility] LABORATORYOrdered By: Gianna Mendez on 10-23-2024 Blood Glucose Testing Reason Routine (10/23/24 12:15 PM) [facility] Glucose [Mass/Vol] 154 mg/dL High 70 - 110 mg/dL [facility] Comment on above: Result Comment: noti fied nurse SHAHEEN Staples .Auto Diffon 10-20-2024 Basophil, Absolute 0.0 10 3/mcL Normal 0.0-0.3 [facility] Comment on above: Performed By: #### C BC, MG, GFR, ADIFF, BMP, ANEU #### [address] [address] Basophils/100 WBC (Bld) 0.6 % Normal 0.0-2.5 [facility] Comment on above: Performed By: #### C BC, MG, GFR, ADIFF, BMP, ANEU #### [address] [address] Eosinophil, Absolute 0.1 10 3/mcL Normal 0.0-0.7 [facility] Comment on above: Performed By: #### C BC, MG, GFR, ADIFF, BMP, ANEU #### [address] [address] Eosinophils/100 WBC (Bld) 1.5 % Normal 0.0-6.0 [facility] Comment on above: Performed By: #### C BC, MG, GFR, ADIFF, BMP, ANEU #### [address] [address] Lymphocyte, Absolute 1.0 10 3/mcL Normal 0.9-4.3 [facility] Comment on above: Performed By: #### C BC, MG, GFR, ADIFF, BMP, ANEU #### [address] [address] Lymphocytes/100 WBC (Bld) 21.2 % Normal 20.0-40.0 [facility] Comment on above: Performed By: #### C BC, MG, GFR, ADIFF, BMP, ANEU #### [address] [address] Monocyte, Absolute 0.6 10 3/mcL Normal 0.1-1.4 [facility] Comment on above: Performed By: #### C BC, MG, GFR, ADIFF, BMP, ANEU #### [address] [address] Monocytes/100 WBC (Bld) 11.6 % Normal 2.0-13.0 [facility] Comment on above: Performed By: #### C BC, MG, GFR, ADIFF, BMP, ANEU #### [address] [address] Neutrophils/100 WBC (Bld) 65.1 % Normal 50.0-75.0 [facility] Comment on above: Performed By: #### C BC, MG, GFR, ADIFF, BMP, ANEU #### [address] [address] .GFRon 10-20-2024 Estimated Glomerular Filtration Rate 108 ml/min/1.73sqm Normal [facility] Comment on above: Result Comment: [...] BC, MG, GFR, ADIFF, BMP, ANEU #### [address] [address] .NEUABSon 10-20-2024 Neutrophil, Absolute 3.2 10 3/mcL Normal 2.3-8.1 [facility] Comment on above: Performed By: #### C BC, MG, GFR, ADIFF, BMP, ANEU #### [address] [address] [facility] BUN/Creatinine Ratio 10.8 ratio Normal 10.0-22.0 [facility] Comment on above: Performed By: #### C BC, MG, GFR, ADIFF, BMP, ANEU #### [place] [address] Calcium [Mass/Vol] 8.7 mg/dL Normal 8.7-10.4 [facility] Comment on above: Performed By: #### C BC, MG, GFR, ADIFF, BMP, ANEU #### [place] [address] Chloride [Moles/Vol] 97 mmol/L Low 98-110 [facility] Comment on above: Performed By: #### C BC, MG, GFR, ADIFF, BMP, ANEU #### [place] [address] CO2 [Moles/Vol] 37 mmol/L High 22-32 [facility] Comment on above: Performed By: #### C BC, MG, GFR, ADIFF, BMP, ANEU #### [place] [address] Creatinine [Mass/Vol] 0.74 mg/dL Normal 0.60-1.40 [facility] Comment on above: Result Comment: Test ing performed on [employer] analyzer using enzymatic creatinine methodology. Performed By: #### C BC, MG, GFR, ADIFF, BMP, ANEU #### [place] [address] Electrolyte Balance 4.0 mEq/L Normal 4.0-15.0 [facility] Comment on above: Performed By: #### C BC, MG, GFR, ADIFF, BMP, ANEU #### [place] [address] Glucose [Mass/Vol] 116 mg/dL High 70-110 [facility] Comment on above: Performed By: #### C BC, MG, GFR, ADIFF, BMP, ANEU #### [place] [id number] Potassium [Moles/Vol] 3.5 mmol/L Normal 3.5-5.0 [facility] Comment on above: Performed By: #### C BC, MG, GFR, ADIFF, BMP, ANEU #### [place] [id number] Sodium [Moles/Vol] 138 mmol/L Normal 136-145 [facility] Comment on above: Performed By: #### C BC, MG, GFR, ADIFF, BMP, ANEU #### [place] [address] Urea nitrogen [Mass/Vol] 8.0 mg/dL Normal 8.0-22.0 [facility] Comment on above: Performed By: #### C BC, MG, GFR, ADIFF, BMP, ANEU #### [place] [id number] CBCon 10-20-2024 Erythrocyte distribution width (RBC) [Ratio] 16.8 % High 11.5-15.5 [facility] Comment on above: Performed By: #### C BC, MG, GFR, ADIFF, BMP, ANEU #### [place] [address] Hematocrit (Bld) [Volume fraction] 41.3 % Normal 40.0-52.0 [facility] Comment on above: Performed By: #### C BC, MG, GFR, ADIFF, BMP, ANEU #### [place] [address] Hgb 13.4 G/dL Normal 13.0-17.5 [facility] Comment on above: Performed By: #### C BC, MG, GFR, ADIFF, BMP, ANEU #### [place] [address] MCH (RBC) [Entitic mass] 28.7 pg Normal 27.0-33.0 [facility] Comment on above: Performed By: #### C BC, MG, GFR, ADIFF, BMP, ANEU #### [place] [address] MCHC 32.4 G/dL Normal 32.0-36.0 [facility] Comment on above: Performed By: #### C BC, MG, GFR, ADIFF, BMP, ANEU #### [place] [address] MCV (RBC) [Entitic vol] 88.5 fL Normal 81.0-100.0 [facility] Comment on above: Performed By: #### C BC, MG, GFR, ADIFF, BMP, ANEU #### [place] [address] Platelet 175 10 3/mcL Normal 150-450 [facility] Comment on above: Performed By: #### C BC, MG, GFR, ADIFF, BMP, ANEU #### [place] [address] Platelet mean volume (Bld) [Entitic vol] 7.3 fL Normal 6.4-10.5 [facility] Comment on above: Performed By: #### C BC, MG, GFR, ADIFF, BMP, ANEU #### [place] [address] RBC 4.67 10 6/mcL Normal 4.50-6.00 [facility] Comment on above: Performed By: #### C BC, MG, GFR, ADIFF, BMP, ANEU #### [place] [address] WBC 4.8 10 3/mcL Normal 4.5-10.8 [facility] Comment on above: Performed By: #### C BC, MG, GFR, ADIFF, BMP, ANEU #### [place] [address] LABORATORYOrdered By: SYSTEM SYSTEM on 10-20-2024 Basophils [...] above: Interpretive Data: T esting performed on [employer] analyzer using enzymatic creatinine methodology. Electrolyte Balance [...] mEq/L AH ADM SS RBC (Bld) [#/Vol] 4.67 106/mcL Normal 4.50 - 6.0 0 10^6/mcL AH Workflow SS Sodium [Moles/Vol] 138 mmol/L Normal 136 - 145 mEq/L ADM SS Urea nitrogen [Mass/Vol] 8.0 mg/dL Normal 8.0 - 22.0 mg/dL AH ADM SS Urea nitrogen/Creatinine [Mass ratio] 10.8 ratio Normal 10.0 - 22.0 ratio ADM SS WBC (Bld) [#/Vol] 4.8 103/mcL Normal 4.5 - 10.8 10^3/mcL AH Workflow SS .Auto Diffon 10-19-2024 Basophil, Absolute 0.0 10 3/mcL Normal 0.0-0.3 [facility] Comment on above: Performed By: #### C BC, MG, GFR, ADIFF, BMP, ANEU #### [address] [address] Basophils/100 WBC (Bld) 0.7 % Normal 0.0-2.5 [facility] Comment on above: Performed By: #### C BC, MG, GFR, ADIFF, BMP, ANEU #### [address] [address] Eosinophil, Absolute 0.1 10 3/mcL Normal 0.0-0.7 [facility] Comment on above: Performed By: #### C BC, MG, GFR, ADIFF, BMP, ANEU #### [address] [address] Eosinophils/100 WBC (Bld) 1.9 % Normal 0.0-6.0 [facility] Comment on above: Performed By: #### C BC, MG, GFR, ADIFF, BMP, ANEU #### [address] [address] Lymphocyte, Absolute 1.0 10 3/mcL Normal 0.9-4.3 [facility] Comment on above: Performed By: #### C BC, MG, GFR, ADIFF, BMP, ANEU #### [address] [address] Lymphocytes/100 WBC (Bld) 18.3 % Low 20.0-40.0 [facility] Comment on above: Performed By: #### C BC, MG, GFR, ADIFF, BMP, ANEU #### [address] [address] Monocyte, Absolute 0.5 10 3/mcL Normal 0.1-1.4 [facility] Comment on above: Performed By: #### C BC, MG, GFR, ADIFF, BMP, ANEU #### [address] [address] Monocytes/100 WBC (Bld) 9.1 % Normal 2.0-13.0 [facility] Comment on above: Performed By: #### C BC, MG, GFR, ADIFF, BMP, ANEU #### [address] [address] Neutrophils/100 WBC (Bld) 70.0 % Normal 50.0-75.0 [facility] Comment on above: Performed By: #### C BC, MG, GFR, ADIFF, BMP, ANEU #### [address] [address] .GFRon 10-19-2024 Estimated Glomerular Filtration Rate 109 ml/min/1.73sqm Normal [facility] Comment on above: Result Comment: [...] BC, MG, GFR, ADIFF, BMP, ANEU #### [address] [address] .NEUABSon 10-19-2024 Neutrophil, Absolute 3.8 10 3/mcL Normal 2.3-8.1 [facility] Comment on above: Performed By: #### C BC, MG, GFR, ADIFF, BMP, ANEU #### [address] [address] BMPon 10-19-2024 BUN/Creatinine Ratio 11.1 ratio Normal 10.0-22.0 [facility] Comment on above: Performed By: #### C BC, MG, GFR, ADIFF, BMP, ANEU #### [address] [address] Calcium [Mass/Vol] 8.7 mg/dL Normal 8.7-10.4 [facility] Comment on above: Performed By: #### C BC, MG, GFR, ADIFF, BMP, ANEU #### [address] [address] Chloride [Moles/Vol] 100 mmol/L Normal 98-110 [facility] Comment on above: Performed By: #### C BC, MG, GFR, ADIFF, BMP, ANEU #### [address] [address] CO2 [Moles/Vol] 33 mmol/L High 22-32 [facility] Comment on above: Performed By: #### C BC, MG, GFR, ADIFF, BMP, ANEU #### [address] [address] Creatinine [Mass/Vol] 0.72 mg/dL Normal 0.60-1.40 [facility] Comment on above: Result Comment: Test ing performed on [employer] analyzer using enzymatic creatinine methodology. Performed By: #### C BC, MG, GFR, ADIFF, BMP, ANEU #### [address] [address] Electrolyte Balance 4.0 mEq/L Normal 4.0-15.0 [facility] Comment on above: Performed By: #### C BC, MG, GFR, ADIFF, BMP, ANEU #### [address] [address] Glucose [Mass/Vol] 181 mg/dL High 70-110 [facility] Comment on above: Performed By: #### C BC, MG, GFR, ADIFF, BMP, ANEU #### [address] [address] Potassium [Moles/Vol] 3.5 mmol/L Normal 3.5-5.0 [facility] Comment on above: Performed By: #### C BC, MG, GFR, ADIFF, BMP, ANEU #### [address] [address] Sodium [Moles/Vol] 137 mmol/L Normal 136-145 [facility] Comment on above: Performed By: #### C BC, MG, GFR, ADIFF, BMP, ANEU #### [address] [address] Urea nitrogen [Mass/Vol] 8.0 mg/dL Normal 8.0-22.0 [facility] Comment on above: Performed By: #### C BC, MG, GFR, ADIFF, BMP, ANEU #### [place] [address] CBCon 10-19-2024 Erythrocyte distribution width (RBC) [Ratio] 17.3 % High 11.5-15.5 [facility] Comment on above: Performed By: #### C BC, MG, GFR, ADIFF, BMP, ANEU #### [place] [address] Hematocrit (Bld) [Volume fraction] 40.5 % Normal 40.0-52.0 [facility] Comment on above: Performed By: #### C BC, MG, GFR, ADIFF, BMP, ANEU #### [place] [address] Hgb 13.0 G/dL Normal 13.0-17.5 [facility] Comment on above: Performed By: #### C BC, MG, GFR, ADIFF, BMP, ANEU #### [place] [address] MCH (RBC) [Entitic mass] 28.6 pg Normal 27.0-33.0 [facility] Comment on above: Performed By: #### C BC, MG, GFR, ADIFF, BMP, ANEU #### [place] [address] MCHC 32.1 G/dL Normal 32.0-36.0 [facility] Comment on above: Performed By: #### C BC, MG, GFR, ADIFF, BMP, ANEU #### [place] [address] MCV (RBC) [Entitic vol] 89.2 fL Normal 81.0-100.0 [facility] Comment on above: Performed By: #### C BC, MG, GFR, ADIFF, BMP, ANEU #### [place] [address] Platelet 171 10 3/mcL Normal 150-450 [facility] Comment on above: Performed By: #### C BC, MG, GFR, ADIFF, BMP, ANEU #### [facility] [address] [place] [address] Platelet mean volume (Bld) [Entitic vol] 7.6 fL Normal 6.4-10.5 [facility] Comment on above: Performed By: #### C BC, MG, GFR, ADIFF, BMP, ANEU #### [place] [address] [place] [address] RBC 4.54 10 6/mcL Normal 4.50-6.00 [facility] Comment on above: Performed By: #### C BC, MG, GFR, ADIFF, BMP, ANEU #### [place] [address] [place] [address] WBC 5.4 10 3/mcL Normal 4.5-10.8 [facility] Comment on above: Performed By: #### C BC, MG, GFR, ADIFF, BMP, ANEU #### [place] [address] LABORATORYOrdered By: SYSTEM SYSTEM on 10-19-2024 Basophils [...] above: Interpretive Data: T esting performed on [employer] analyzer using enzymatic creatinine methodology. Electrolyte [...] Basophil, Absolute 0.0 10 3/mcL Normal 0.0-0.3 [facility] Comment on above: Performed By: #### A DIFF, ANEU, BMP, CBC, GFR #### [address] [address] Basophils/100 WBC (Bld) 0.6 % Normal 0.0-2.5 [facility] Comment on above: Performed By: #### A DIFF, ANEU, BMP, CBC, GFR #### [address] [address] Eosinophil, Absolute 0.1 10 3/mcL Normal 0.0-0.7 [facility] Comment on above: Performed By: #### A DIFF, ANEU, BMP, CBC, GFR #### [address] [address] Eosinophils/100 WBC (Bld) 1.7 % Normal 0.0-6.0 [facility] Comment on above: Performed By: #### A DIFF, ANEU, BMP, CBC, GFR #### [address] [address] Lymphocyte, Absolute 1.2 10 3/mcL Normal 0.9-4.3 [facility] Comment on above: Performed By: #### A DIFF, ANEU, BMP, CBC, GFR #### [address] [address] Lymphocytes/100 WBC (Bld) 19.0 % Low 20.0-40.0 [facility] Comment on above: Performed By: #### A DIFF, ANEU, BMP, CBC, GFR #### [address] [address] Monocyte, Absolute 0.9 10 3/mcL Normal 0.1-1.4 [facility] Comment on above: Performed By: #### A DIFF, ANEU, BMP, CBC, GFR #### [address] [address] Monocytes/100 WBC (Bld) 14.1 % High 2.0-13.0 [facility] Comment on above: Performed By: #### A DIFF, ANEU, BMP, CBC, GFR #### [address] [address] Neutrophils/100 WBC (Bld) 64.6 % Normal 50.0-75.0 [facility] Comment on above: Performed By: #### A DIFF, ANEU, BMP, CBC, GFR #### [address] [address] Basophil, Absolute 0.0 10 3/mcL Normal 0.0-0.3 [facility] Comment on above: Performed By: #### A DIFF, ANEU, BMP, CBC, GFR #### [address] [address] Basophils/100 WBC (Bld) 0.4 % Normal 0.0-2.5 [facility] Comment on above: Performed By: #### A DIFF, ANEU, BMP, CBC, GFR #### [address] [address] Eosinophil, Absolute 0.1 10 3/mcL Normal 0.0-0.7 [facility] Comment on above: Performed By: #### A DIFF, ANEU, BMP, CBC, GFR #### [address] [address] Eosinophils/100 WBC (Bld) 1.2 % Normal 0.0-6.0 [facility] Comment on above: Performed By: #### A DIFF, ANEU, BMP, CBC, GFR #### [address] [address] Lymphocyte, Absolute 0.7 10 3/mcL Low 0.9-4.3 [facility] Comment on above: Performed By: #### A DIFF, ANEU, BMP, CBC, GFR #### [address] [address] Lymphocytes/100 WBC (Bld) 16.1 % Low 20.0-40.0 [facility] Comment on above: Performed By: #### A DIFF, ANEU, BMP, CBC, GFR #### [address] [address] Monocyte, Absolute 0.5 10 3/mcL Normal 0.1-1.4 [facility] Comment on above: Performed By: #### A DIFF, ANEU, BMP, CBC, GFR #### [address] [address] Monocytes/100 WBC (Bld) 11.8 % Normal 2.0-13.0 [facility] Comment on above: Performed By: #### A DIFF, ANEU, BMP, CBC, GFR #### [address] [address] Neutrophils/100 WBC (Bld) 70.5 % Normal 50.0-75.0 [facility] Comment on above: Performed By: #### A DIFF, ANEU, BMP, CBC, GFR #### [address] [address] .GFRon 10-18-2024 Estimated Glomerular Filtration Rate 112 ml/min/1.73sqm Normal [facility] Comment on above: Result Comment: [...] A DIFF, ANEU, BMP, CBC, GFR #### [address] [address] Estimated Glomerular Filtration Rate 114 ml/min/1.73sqm Normal [facility] Comment on above: Result Comment: [...] A DIFF, ANEU, BMP, CBC, GFR #### [address] [address] [address] .NEUABSon 10-18-2024 Neutrophil, Absolute 3.9 10 3/mcL Normal 2.3-8.1 [facility] Comment on above: Performed By: #### A DIFF, ANEU, BMP, CBC, GFR #### [address] [address] Neutrophil, Absolute 3.3 10 3/mcL Normal 2.3-8.1 [facility] Comment on above: Performed By: #### A DIFF, ANEU, BMP, CBC, GFR #### [address] [address] [facility] BUN/Creatinine Ratio 9.0 ratio Low 10.0-22.0 [facility] Comment on above: Performed By: #### A DIFF, ANEU, BMP, CBC, GFR #### [address] [address] Calcium [Mass/Vol] 8.7 mg/dL Normal 8.7-10.4 [facility] Comment on above: Performed By: #### A DIFF, ANEU, BMP, CBC, GFR #### [address] [address] Chloride [Moles/Vol] 99 mmol/L Normal 98-110 [facility] Comment on above: Performed By: #### A DIFF, ANEU, BMP, CBC, GFR #### [address] [address] CO2 [Moles/Vol] 33 mmol/L High 22-32 [facility] Comment on above: Performed By: #### A DIFF, ANEU, BMP, CBC, GFR #### [address] [address] Creatinine [Mass/Vol] 0.67 mg/dL Normal 0.60-1.40 [facility] Comment on above: Result Comment: Test ing performed on [employer] analyzer using enzymatic creatinine methodology. Performed By: #### A DIFF, ANEU, BMP, CBC, GFR #### [address] [address] Electrolyte Balance 5.0 mEq/L Normal 4.0-15.0 [facility] Comment on above: Performed By: #### A DIFF, ANEU, BMP, CBC, GFR #### [address] [address] Glucose [Mass/Vol] 115 mg/dL High 70-110 [facility] Comment on above: Performed By: #### A DIFF, ANEU, BMP, CBC, GFR #### [address] [address] Potassium [Moles/Vol] 3.4 mmol/L Low 3.5-5.0 [facility] Comment on above: Performed By: #### A DIFF, ANEU, BMP, CBC, GFR #### [address] [address] Sodium [Moles/Vol] 137 mmol/L Normal 136-145 [facility] Comment on above: Performed By: #### A DIFF, ANEU, BMP, CBC, GFR #### [address] [address] Urea nitrogen [Mass/Vol] 6.0 mg/dL Low 8.0-22.0 [facility] Comment on above: Performed By: #### A DIFF, ANEU, BMP, CBC, GFR #### [address] [address] BUN/Creatinine Ratio Unable to Calculate Normal 10.0-2 2.0 [facility] Comment on above: Order Comment: Pleas e draw daily labs at 3 AM for 3 days Result Comment: Unab le to calculate this test result accurately. Results used to calculate this test are outside the reportable range. Performed By: #### A DIFF, ANEU, BMP, CBC, GFR #### [address] [address] Urea nitrogen [Mass/Vol] mg/dL Low 8.0-22.0 [facility] Comment on above: Order Comment: Pleas e draw daily labs at 3 AM for 3 days Performed By: #### A DIFF, ANEU, BMP, CBC, GFR #### [address] [address] Calcium [Mass/Vol] 9.2 mg/dL Normal 8.7-10.4 [facility] Comment on above: Order Comment: Pleas e draw daily labs at 3 AM for 3 days Performed By: #### A DIFF, ANEU, BMP, CBC, GFR #### [address] [address] Chloride [Moles/Vol] 101 mmol/L Normal 98-110 [facility] Comment on above: Order Comment: Pleas e draw daily labs at 3 AM for 3 days Performed By: #### A DIFF, ANEU, BMP, CBC, GFR #### [address] [address] CO2 [Moles/Vol] 33 mmol/L High 22-32 [facility] Comment on above: Order Comment: Pleas e draw daily labs at 3 AM for 3 days Performed By: #### A DIFF, ANEU, BMP, CBC, GFR #### [address] [address] Creatinine [Mass/Vol] 0.63 mg/dL Normal 0.60-1.40 [facility] Comment on above: Order Comment: Pleas e draw daily labs at 3 AM for 3 days Result Comment: Test ing performed on [employer] analyzer using enzymatic creatinine methodology. Performed By: #### A DIFF, ANEU, BMP, CBC, GFR #### [address] [address] Electrolyte Balance 5.0 mEq/L Normal 4.0-15.0 [facility] Comment on above: Order Comment: Pleas e draw daily labs at 3 AM for 3 days Performed By: #### A DIFF, ANEU, BMP, CBC, GFR #### [place] [id number] Glucose [Mass/Vol] 110 mg/dL Normal 70-110 [facility] Comment on above: Order Comment: Pleas e draw daily labs at 3 AM for 3 days Performed By: #### A DIFF, ANEU, BMP, CBC, GFR #### [place] [address] Potassium [Moles/Vol] 3.6 mmol/L Normal 3.5-5.0 [facility] Comment on above: Order Comment: Pleas e draw daily labs at 3 AM for 3 days Performed By: #### A DIFF, ANEU, BMP, CBC, GFR #### [place] [address] Sodium [Moles/Vol] 139 mmol/L Normal 136-145 [facility] Comment on above: Order Comment: Pleas e draw daily labs at 3 AM for 3 days Performed By: #### A DIFF, ANEU, BMP, CBC, GFR #### [address] [address] CBCon 10-18-2024 Erythrocyte distribution width (RBC) [Ratio] 17.3 % High 11.5-15.5 [facility] Comment on above: Performed By: #### A DIFF, ANEU, BMP, CBC, GFR #### [address] [address] Hematocrit (Bld) [Volume fraction] 41.4 % Normal 40.0-52.0 [facility] Comment on above: Performed By: #### A DIFF, ANEU, BMP, CBC, GFR #### [place] [address] Hgb 13.5 G/dL Normal 13.0-17.5 [facility] Comment on above: Performed By: #### A DIFF, ANEU, BMP, CBC, GFR #### [place] [address] MCH (RBC) [Entitic mass] 28.9 pg Normal 27.0-33.0 [facility] Comment on above: Performed By: #### A DIFF, ANEU, BMP, CBC, GFR #### [place] [address] MCHC 32.7 G/dL Normal 32.0-36.0 [facility] Comment on above: Performed By: #### A DIFF, ANEU, BMP, CBC, GFR #### [place] [address] MCV (RBC) [Entitic vol] 88.4 fL Normal 81.0-100.0 [facility] Comment on above: Performed By: #### A DIFF, ANEU, BMP, CBC, GFR #### [place] [address] Platelet 158 10 3/mcL Normal 150-450 [facility] Comment on above: Performed By: #### A DIFF, ANEU, BMP, CBC, GFR #### [place] [address] Platelet mean volume (Bld) [Entitic vol] 7.9 fL Normal 6.4-10.5 [facility] Comment on above: Performed By: #### A DIFF, ANEU, BMP, CBC, GFR #### [place] [address] RBC 4.68 10 6/mcL Normal 4.50-6.00 [facility] Comment on above: Performed By: #### A DIFF, ANEU, BMP, CBC, GFR #### [place] [id number] WBC 6.1 10 3/mcL Normal 4.5-10.8 [facility] Comment on above: Performed By: #### A DIFF, ANEU, BMP, CBC, GFR #### [place] [address] Erythrocyte distribution width (RBC) [Ratio] 16.9 % High 11.5-15.5 [facility] Comment on above: Order Comment: Colle ct blood every day at 3 AM for the next 3 days. Performed By: #### A DIFF, ANEU, BMP, CBC, GFR #### [place] [address] Hematocrit (Bld) [Volume fraction] 41.4 % Normal 40.0-52.0 [facility] Comment on above: Order Comment: Colle ct blood every day at 3 AM for the next 3 days. Performed By: #### A DIFF, ANEU, BMP, CBC, GFR #### [place] [address] Hgb 13.6 G/dL Normal 13.0-17.5 [facility] Comment on above: Order Comment: Colle ct blood every day at 3 AM for the next 3 days. Performed By: #### A DIFF, ANEU, BMP, CBC, GFR #### [place] [address] MCH (RBC) [Entitic mass] 29.0 pg Normal 27.0-33.0 [facility] Comment on above: Order Comment: Colle ct blood every day at 3 AM for the next 3 days. Performed By: #### A DIFF, ANEU, BMP, CBC, GFR #### [place] [address] MCHC 32.8 G/dL Normal 32.0-36.0 [facility] Comment on above: Order Comment: Colle ct blood every day at 3 AM for the next 3 days. Performed By: #### A DIFF, ANEU, BMP, CBC, GFR #### [place] [address] MCV (RBC) [Entitic vol] 88.3 fL Normal 81.0-100.0 [facility] Comment on above: Order Comment: Colle ct blood every day at 3 AM for the next 3 days. Performed By: #### A DIFF, ANEU, BMP, CBC, GFR #### [address] [address] Platelet 127 10 3/mcL Low 150-450 [facility] Comment on above: Order Comment: Colle ct blood every day at 3 AM for the next 3 days. Performed By: #### A DIFF, ANEU, BMP, CBC, GFR #### [place] [address] Platelet mean volume (Bld) [Entitic vol] 7.7 fL Normal 6.4-10.5 [facility] Comment on above: Order Comment: Colle ct blood every day at 3 AM for the next 3 days. Performed By: #### A DIFF, ANEU, BMP, CBC, GFR #### [place] [address] RBC 4.70 10 6/mcL Normal 4.50-6.00 [facility] Comment on above: Order Comment: Colle ct blood every day at 3 AM for the next 3 days. Performed By: #### A DIFF, ANEU, BMP, CBC, GFR #### [place] [address] WBC 4.6 10 3/mcL Normal 4.5-10.8 [facility] Comment on above: Order Comment: Colle ct blood every day at 3 AM for the next 3 days. Performed By: #### A DIFF, ANEU, BMP, CBC, GFR #### [place] [address] LABORATORYOrdered By: SYSTEM SYSTEM on 10-18-2024 Basophils (Bld) [#/Vol] 0.0 103/mcL Normal 0.0 - 0.3 10^3/mcL AH Workflow SS Basophils/100 WBC (Bld) 0.6 % Normal 0.0 - 2.5 % AH Workflow SS Calcium [Mass/Vol] 8.7 mg/dL Normal 8.7 - 10. 4 mg/dL AH ADM SS Chloride [Moles/Vol] 99 mmol/L Normal 98 - 11 0 mEq/L AH ADM SS CO2 [Moles/Vol] 33 mmol/L High 22 - 32 mEq/L AH ADM SS Creatinine [Mass/Vol] 0.67 mg/dL Normal 0.60 - 1.40 mg/dL ADM SS Comment on above: Interpretive Data: T esting performed on [employer] analyzer using enzymatic creatinine methodology. Electrolyte [...] 4.3 10^3/mcL Workflow SS Lymphocytes/100 WBC (Bld) 19.0 % Low 20.0 - 40.0 % Workflow SS MCH (RBC) [Entitic mass] 28.9 pg Normal 27.0 - 33.0 pg Workflow SS MCHC 32.7 G/dL Normal 32.0 - 36.0 G/dL Workflow SS MCV (RBC) [Entitic vol] 88.4 fL Normal 81.0 - 100.0 fL AH Workflow SS Monocytes (Bld) [#/Vol] 0.9 103/mcL Normal 0.1 - 1.4 10^3/mcL Workflow SS Monocytes/100 WBC (Bld) 14.1 % [...] Basophil, Absolute 0.0 10 3/mcL Normal 0.0-0.3 [facility] Comment on above: Performed By: #### A DIFF, ANEU, BMP, CBC, GFR #### [place] [address] [place] [address] Basophils/100 WBC (Bld) 0.6 % Normal 0.0-2.5 [facility] Comment on above: Performed By: #### A DIFF, ANEU, BMP, CBC, GFR #### [place] [address] [place] [address] Eosinophil, Absolute 0.1 10 3/mcL Normal 0.0-0.7 [facility] Comment on above: Performed By: #### A DIFF, ANEU, BMP, CBC, GFR #### [address] [address] Eosinophils/100 WBC (Bld) 1.1 % Normal 0.0-6.0 [facility] Comment on above: Performed By: #### A DIFF, ANEU, BMP, CBC, GFR #### [address] [address] Lymphocyte, Absolute 0.9 10 3/mcL Normal 0.9-4.3 [facility] Comment on above: Performed By: #### A DIFF, ANEU, BMP, CBC, GFR #### [address] [address] Lymphocytes/100 WBC (Bld) 17.7 % Low 20.0-40.0 [facility] Comment on above: Performed By: #### A DIFF, ANEU, BMP, CBC, GFR #### [address] [address] Monocyte, Absolute 0.6 10 3/mcL Normal 0.1-1.4 [facility] Comment on above: Performed By: #### A DIFF, ANEU, BMP, CBC, GFR #### [address] [address] Monocytes/100 WBC (Bld) 11.1 % Normal 2.0-13.0 [facility] Comment on above: Performed By: #### A DIFF, ANEU, BMP, CBC, GFR #### [address] [address] Neutrophils/100 WBC (Bld) 69.5 % Normal 50.0-75.0 [facility] Comment on above: Performed By: #### A DIFF, ANEU, BMP, CBC, GFR #### [address] [address] .GFRon 10-17-2024 Estimated Glomerular Filtration Rate 113 ml/min/1.73sqm [facility] Comment on above: Result Comment: Stages [...] BC, MG, GFR, ADIFF, BMP, ANEU #### [address] [address] .NEUABSon 10-17-2024 Neutrophil, Absolute 3.7 10 3/mcL Normal 2.3-8.1 [facility] Comment on above: Performed By: #### A DIFF, ANEU, BMP, CBC, GFR #### [address] [address] [facility] BUN/Creatinine Ratio 7.7 ratio Low 10.0-22.0 [facility] Comment on above: Performed By: #### A DIFF, ANEU, BMP, CBC, GFR #### [address] [address] Calcium [Mass/Vol] 8.5 mg/dL Low 8.7-10.4 [facility] Comment on above: Performed By: #### A DIFF, ANEU, BMP, CBC, GFR #### [address] [address] Chloride [Moles/Vol] 101 mmol/L Normal 98-110 [facility] Comment on above: Performed By: #### A DIFF, ANEU, BMP, CBC, GFR #### [address] [address] CO2 [Moles/Vol] 31 mmol/L Normal 22-32 [facility] Comment on above: Performed By: #### A DIFF, ANEU, BMP, CBC, GFR #### [address] [address] Creatinine [Mass/Vol] 0.65 mg/dL Normal 0.60-1.40 [facility] Comment on above: Result Comment: Test ing performed on [employer] analyzer using enzymatic creatinine methodology. Performed By: #### A DIFF, ANEU, BMP, CBC, GFR #### [place] [id number] Electrolyte Balance 7.0 mEq/L Normal 4.0-15.0 [facility] Comment on above: Performed By: #### A DIFF, ANEU, BMP, CBC, GFR #### [place] [id number] Glucose [Mass/Vol] 120 mg/dL High 70-110 [facility] Comment on above: Performed By: #### A DIFF, ANEU, BMP, CBC, GFR #### [place] [address] Potassium [Moles/Vol] 3.3 mmol/L Low 3.5-5.0 [facility] Comment on above: Performed By: #### A DIFF, ANEU, BMP, CBC, GFR #### [place] [id number] Sodium [Moles/Vol] 139 mmol/L Normal 136-145 [facility] Comment on above: Performed By: #### A DIFF, ANEU, BMP, CBC, GFR #### [place] [address] Urea nitrogen [Mass/Vol] 5.0 mg/dL Low 8.0-22.0 [facility] Comment on above: Performed By: #### A DIFF, ANEU, BMP, CBC, GFR #### [address] [address] CBCon 10-17-2024 Erythrocyte distribution width (RBC) [Ratio] 17.0 % High 11.5-15.5 [facility] Comment on above: Performed By: #### A DIFF, ANEU, BMP, CBC, GFR #### [place] [id number] Hematocrit (Bld) [Volume fraction] 40.3 % Normal 40.0-52.0 [facility] Comment on above: Performed By: #### A DIFF, ANEU, BMP, CBC, GFR #### [address] [address] Hgb 13.2 G/dL Normal 13.0-17.5 [facility] Comment on above: Performed By: #### A DIFF, ANEU, BMP, CBC, GFR #### [place] [id number] MCH (RBC) [Entitic mass] 28.6 pg Normal 27.0-33.0 [facility] Comment on above: Performed By: #### A DIFF, ANEU, BMP, CBC, GFR #### [place] [address] MCHC 32.6 G/dL Normal 32.0-36.0 [facility] Comment on above: Performed By: #### A DIFF, ANEU, BMP, CBC, GFR #### [place] [address] MCV (RBC) [Entitic vol] 87.6 fL Normal 81.0-100.0 [facility] Comment on above: Performed By: #### A DIFF, ANEU, BMP, CBC, GFR #### [place] [address] Platelet 132 10 3/mcL Low 150-450 [facility] Comment on above: Performed By: #### A DIFF, ANEU, BMP, CBC, GFR #### [place] [address] Platelet mean volume (Bld) [Entitic vol] 7.8 fL Normal 6.4-10.5 [facility] Comment on above: Performed By: #### A DIFF, ANEU, BMP, CBC, GFR #### [place] [address] RBC 4.60 10 6/mcL Normal 4.50-6.00 [facility] Comment on above: Performed By: #### A DIFF, ANEU, BMP, CBC, GFR #### [place] [address] WBC 5.4 10 3/mcL Normal 4.5-10.8 [facility] Comment on above: Performed By: #### A DIFF, ANEU, BMP, CBC, GFR #### [place] [id number] CT ANKLE W/O CONTRAST RIGHTo n 10-17-2024 [...] spanning external fixator, multiplanar 10/17. transfer from [place] [facility] for right ankle fracture with dislocation. Surgical [...] 10/17/2024 1:17:29 PM Ordering Provider: SUZE MISHRA [facility] MAIN LABORATORYOrdered By: SYSTEM SYSTEM on 10-17-2024 PT Coag (PPP) [Time] 13.7 s Normal 9.0 - 1 4.4 seconds [facility] Comment on above: Interpretive Data: E ffective 12/11/07, Protime results may be affected by some antibiotics (i.e. Ciprofloxacin, Azithromycin, Bactrim) which may potentiate the action of oral anticoagulants, with further increases in Protime/INR. PT International Ratio 1.2 ratio Invalid [facility]ation Code [facility] Comment on above: Interpretive Data: T temtiope [employer] (CHEST, 1991, 102:312S-25S) recommended therapeutic range for oral anticoagulant therapy is: LOW RISK: Prophylaxis of venous thrombosis INR: 2.0-3.0 Treatment of pulmonary embolism 2.0-3.0 Prevention of systemic embolism 2.0-3.0 HIGH RISK: Mechanical prosthetic valves 2.5-3.5 PRO 10-17-2024 INR Coag (PPP) [Relative time] 1.2 {INR} Normal [facility] Comment on above: Result Comment: [employer] (CHEST, 1991, 102:312S-25S) recommended therapeutic range for oral anticoagulant therapy is: LOW RISK: Prophylaxis of venous thrombosis INR: 2.0-3.0 Treatment of pulmonary embolism 2.0-3.0 Prevention of systemic embolism 2.0-3.0 HIGH RISK: Mechanical prosthetic valves 2.5-3.5 Performed By: #### C BC, MG, GFR, ADIFF, BMP, ANEU #### [place] [address] PT Coag (PPP) [Time] 13.7 s Normal 9.0-14.4 [facility] Comment on above: Result Comment: Effe ctive 12/11/07, Protime results may be affected by some antibiotics (i.e. Ciprofloxacin, Azithromycin, Bactrim) which may potentiate the action of oral anticoagulants, with further increases in Protime/INR. Performed By: #### C BC, MG, GFR, ADIFF, BMP, ANEU #### [address] [address] XR FLUORO 1-2 HRS TECH TIMEo n [...] Intraoperative fluoroscopic images. Please refer to the paper rewinder operator's report for further information. I have personally reviewed the images of this examination and agree with the resident's findings and interpretation. Interpreted by: Beau Wahl Preliminary Report By: Nadya Hudson Electronically signed By Beau Wahl Dictated Date: 10/17/2024 1:42:02 PM Prelim Date: 10/17/2024 2:15:08 PM Sign Date: 10/17/2024 2:15:08 PM Ordering Provider: NANI Kate [facility] .Auto Diffon 10-16-2024 Basophil, Absolute 0.1 10 3/mcL Normal 0.0-0.3 [facility] Comment on above: Performed By: #### C BC, MG, GFR, ADIFF, BMP, ANEU #### [address] [address] Basophils/100 WBC (Bld) 0.8 % Normal 0.0-2.5 [facility] Comment on above: Performed By: #### C BC, MG, GFR, ADIFF, BMP, ANEU #### [address] [address] Eosinophil, Absolute 0.1 10 3/mcL Normal 0.0-0.7 [facility] Comment on above: Performed By: #### C BC, MG, GFR, ADIFF, BMP, ANEU #### [address] [address] Eosinophils/100 WBC (Bld) 1.2 % Normal 0.0-6.0 [facility] Comment on above: Performed By: #### C BC, MG, GFR, ADIFF, BMP, ANEU #### [address] [address] Lymphocyte, Absolute 1.4 10 3/mcL Normal 0.9-4.3 [facility] Comment on above: Performed By: #### C BC, MG, GFR, ADIFF, BMP, ANEU #### [address] [address] Lymphocytes/100 WBC (Bld) 19.8 % Low 20.0-40.0 [facility] Comment on above: Performed By: #### C BC, MG, GFR, ADIFF, BMP, ANEU #### [address] [address] Monocyte, Absolute 0.7 10 3/mcL Normal 0.1-1.4 [facility] Comment on above: Performed By: #### C BC, MG, GFR, ADIFF, BMP, ANEU #### [address] [address] Monocytes/100 WBC (Bld) 10.7 % Normal 2.0-13.0 [facility] Comment on above: Performed By: #### C BC, MG, GFR, ADIFF, BMP, ANEU #### [address] [address] Neutrophils/100 WBC (Bld) 67.5 % Normal 50.0-75.0 [facility] Comment on above: Performed By: #### C BC, MG, GFR, ADIFF, BMP, ANEU #### [address] [address] Basophil, Absolute 0.0 10 3/mcL Normal 0.0-0.3 [facility] Comment on above: Performed By: #### A DIFF, ANEU, BMP, CBC, GFR #### [address] [address] Basophils/100 WBC (Bld) 0.7 % Normal 0.0-2.5 [facility] Comment on above: Performed By: #### A DIFF, ANEU, BMP, CBC, GFR #### [address] [address] Eosinophil, Absolute 0.1 10 3/mcL Normal 0.0-0.7 [facility] Comment on above: Performed By: #### A DIFF, ANEU, BMP, CBC, GFR #### [address] [address] Eosinophils/100 WBC (Bld) 0.8 % Normal 0.0-6.0 [facility] Comment on above: Performed By: #### A DIFF, ANEU, BMP, CBC, GFR #### [address] [address] Lymphocyte, Absolute 1.1 10 3/mcL Normal 0.9-4.3 [facility] Comment on above: Performed By: #### A DIFF, ANEU, BMP, CBC, GFR #### [address] [address] Lymphocytes/100 WBC (Bld) 17.2 % Low 20.0-40.0 [facility] Comment on above: Performed By: #### A DIFF, ANEU, BMP, CBC, GFR #### [address] [address] Monocyte, Absolute 0.6 10 3/mcL Normal 0.1-1.4 [facility] Comment on above: Performed By: #### A DIFF, ANEU, BMP, CBC, GFR #### [address] [address] Monocytes/100 WBC (Bld) 8.7 % Normal 2.0-13.0 [facility] Comment on above: Performed By: #### A DIFF, ANEU, BMP, CBC, GFR #### [address] [address] Neutrophils/100 WBC (Bld) 72.6 % Normal 50.0-75.0 [facility] Comment on above: Performed By: #### A DIFF, ANEU, BMP, CBC, GFR #### [address] [address] .GFRon 10-16-2024 Estimated Glomerular Filtration Rate 110 ml/min/1.73sqm [facility] MAIN Comment on above: Result Comment: Stages [...] BC, MG, GFR, ADIFF, BMP, ANEU #### [place] [address] Estimated Glomerular Filtration Rate 111 ml/min/1.73sqm [facility] MAIN Comment on above: Result Comment: Stages [...] 15-29 CKD 5 Kidney failure <15 Note: ([facility] 07/02/2024) the eGFR calculation was updated to the 2020 CKD-EPI creatinine equation without a race factor to calculate the eGFR results. Performed By: #### A DIFF, ANEU, BMP, CBC, GFR #### [place] [address] .MDWon 10-16-2024 Monocyte Distribution Width 19.45 Normal 0.00-20.00 [facility] Comment on above: Result Comment: For ED adult patients suspected of sepsis, MDW<=20.0 does not rule out sepsis or risk of sepsis Performed By: #### A DIFF, ANEU, BMP, CBC, GFR #### [place] [address] Monocyte Distribution Width 17.52 Normal 0.00-20.00 [facility] Comment on above: Result Comment: For ED adult patients suspected of sepsis, MDW<=20.0 does not rule out sepsis or risk of sepsis Performed By: #### A DIFF, ANEU, BMP, CBC, GFR #### [place] [address] .NEUABSon 10-16-2024 Neutrophil, Absolute 4.7 10 3/mcL Normal 2.3-8.1 [facility] Comment on above: Performed By: #### A DIFF, ANEU, BMP, CBC, GFR #### [address] [address] Neutrophil, Absolute 4.7 10 3/mcL Normal 2.3-8.1 [facility] Comment on above: Performed By: #### A DIFF, ANEU, BMP, CBC, GFR #### [place] [id number] ABO/Rh (Gel)on 10-16-2024 ABO/Rh Interp Positive Invalid Interpretation Code [facility] Comment on above: Performed By: #### C BC, MG, GFR, ADIFF, BMP, ANEU #### [place] [id number] ABS (Gel)on 10-16-2024 ABSC Interp (Gel) Negative Normal [facility] Comment on above: Performed By: #### C BC, MG, GFR, ADIFF, BMP, ANEU #### [place] [id number] Stefanie 10-16-2024 Ethanol Level <10.0 Normal [facility] Comment on above: Performed By: #### A DIFF, ANEU, BMP, CBC, GFR #### [place] [id number] ANKLE COMPLETE RTon 10-17-19 ANKLE COMPLETE RT [place] [address] Patient: CARLOS ALBERTO HOROWITZ Phone#: : [phone] Age: 54 Gender: M Pt. Type: ER Account: [id number] Location: [facility] Ordering: JAKE MAXWELL Exam Date: 10/16/2024/13:23 Family Phys: Charge Code: [id number] Physician: [place] Order #: [id number] Dose#: PROCEDURE: X-RAY ANKLE COMPLETE RT MIN [...] Bagley MD on 10/16/2024 at 14:15 Normal [facility] BMPon 10-16-2024 BUN/Creatinine Ratio 15.9 ratio Normal 10.0-22.0 [facility] Comment on above: Performed By: #### A DIFF, ANEU, BMP, CBC, GFR #### [address] [address] Calcium [Mass/Vol] 9.4 mg/dL Normal 8.7-10.4 [facility] Comment on above: Performed By: #### A DIFF, ANEU, BMP, CBC, GFR #### [address] [address] Chloride [Moles/Vol] 103 mmol/L Normal 98-110 [facility] Comment on above: Performed By: #### A DIFF, ANEU, BMP, CBC, GFR #### [address] [address] CO2 [Moles/Vol] 32 mmol/L Normal 22-32 [facility] Comment on above: Performed By: #### A DIFF, ANEU, BMP, CBC, GFR #### [address] [address] Creatinine [Mass/Vol] 0.69 mg/dL Normal 0.60-1.40 [facility] Comment on above: Result Comment: Test ing performed on [employer] analyzer using enzymatic creatinine methodology. Performed By: #### A DIFF, ANEU, BMP, CBC, GFR #### [place] [id number] Electrolyte Balance 5.0 mEq/L Normal 4.0-15.0 [facility] Comment on above: Performed By: #### A DIFF, ANEU, BMP, CBC, GFR #### [address] [address] Glucose [Mass/Vol] 94 mg/dL Normal 70-110 [facility] Comment on above: Performed By: #### A DIFF, ANEU, BMP, CBC, GFR #### [place] [id number] Potassium [Moles/Vol] 3.6 mmol/L Normal 3.5-5.0 [facility] Comment on above: Performed By: #### A DIFF, ANEU, BMP, CBC, GFR #### [place] [id number] Sodium [Moles/Vol] 140 mmol/L Normal 136-145 [facility] Comment on above: Performed By: #### A DIFF, ANEU, BMP, CBC, GFR #### [place] [address] Urea nitrogen [Mass/Vol] 11.0 mg/dL Normal 8.0-22.0 [facility] Comment on above: Performed By: #### A DIFF, ANEU, BMP, CBC, GFR #### [place] [id number] CBCon 10-16-2024 Erythrocyte distribution width (RBC) [Ratio] 16.5 % High 11.5-15.5 [facility] Comment on above: Performed By: #### C BC, MG, GFR, ADIFF, BMP, ANEU #### [place] [id number] Hematocrit (Bld) [Volume fraction] 45.2 % Normal 40.0-52.0 [facility] Comment on above: Performed By: #### C BC, MG, GFR, ADIFF, BMP, ANEU #### [place] [id number] Hgb 14.8 G/dL Normal 13.0-17.5 [facility] Comment on above: Performed By: #### C BC, MG, GFR, ADIFF, BMP, ANEU #### [place] [id number] MCH (RBC) [Entitic mass] 28.8 pg Normal 27.0-33.0 [facility] Comment on above: Performed By: #### C BC, MG, GFR, ADIFF, BMP, ANEU #### [place] [address] MCHC 32.8 G/dL Normal 32.0-36.0 [facility] Comment on above: Performed By: #### C BC, MG, GFR, ADIFF, BMP, ANEU #### [place] [address] MCV (RBC) [Entitic vol] 87.8 fL Normal 81.0-100.0 [facility] Comment on above: Performed By: #### C BC, MG, GFR, ADIFF, BMP, ANEU #### [place] [address] Platelet 172 10 3/mcL Normal 150-450 [facility] Comment on above: Performed By: #### C BC, MG, GFR, ADIFF, BMP, ANEU #### [place] [address] Platelet mean volume (Bld) [Entitic vol] 7.9 fL Normal 6.4-10.5 [facility] Comment on above: Performed By: #### C BC, MG, GFR, ADIFF, BMP, ANEU #### [place] [address] RBC 5.14 10 6/mcL Normal 4.50-6.00 [facility] Comment on above: Performed By: #### C BC, MG, GFR, ADIFF, BMP, ANEU #### [place] [id number] WBC 6.9 10 3/mcL Normal 4.5-10.8 [facility] Comment on above: Performed By: #### C BC, MG, GFR, ADIFF, BMP, ANEU #### [address] [address] Erythrocyte distribution width (RBC) [Ratio] 17.1 % High 11.5-15.5 [facility] Comment on above: Performed By: #### A DIFF, ANEU, BMP, CBC, GFR #### [address] [address] Hematocrit (Bld) [Volume fraction] 43.2 % Normal 40.0-52.0 [facility] Comment on above: Performed By: #### A DIFF, ANEU, BMP, CBC, GFR #### [place] [address] Hgb 14.3 G/dL Normal 13.0-17.5 [facility] Comment on above: Performed By: #### A DIFF, ANEU, BMP, CBC, GFR #### [place] [address] MCH (RBC) [Entitic mass] 28.9 pg Normal 27.0-33.0 [facility] Comment on above: Performed By: #### A DIFF, ANEU, BMP, CBC, GFR #### [place] [address] MCHC 33.0 G/dL Normal 32.0-36.0 [facility] Comment on above: Performed By: #### A DIFF, ANEU, BMP, CBC, GFR #### [place] [id number] MCV (RBC) [Entitic vol] 87.4 fL Normal 81.0-100.0 [facility] Comment on above: Performed By: #### A DIFF, ANEU, BMP, CBC, GFR #### [place] [id number] Platelet 152 10 3/mcL Normal 150-450 [facility] Comment on above: Performed By: #### A DIFF, ANEU, BMP, CBC, GFR #### [place] [id number] Platelet mean volume (Bld) [Entitic vol] 7.7 fL Normal 6.4-10.5 [facility] Comment on above: Performed By: #### A DIFF, ANEU, BMP, CBC, GFR #### [facility] [address] [place] [address] RBC 4.94 10 6/mcL Normal 4.50-6.00 [facility] Comment on above: Performed By: #### A DIFF, ANEU, BMP, CBC, GFR #### [facility] [address] [place] [address] WBC 6.5 10 3/mcL Normal 4.5-10.8 [facility] Comment on above: Performed By: #### A DIFF, ANEU, BMP, CBC, GFR #### [facility] [address] [place] [address] CBC + DIFFon 10-16-2024 Baso # 0.01 x10EE3/UL Normal 0.00 - 0.10 [facility] Comment on above: Performed By: #### 2 07917 #### [facility],[address] [place], [place] [id number] Basophils/100 WBC (Bld) 0.2 % Normal 0.0 - 2.0 [facility] Comment on above: Performed By: #### 2 33432 #### [facility],[address] [place] [address] CBC + DIFF Normal [facility] Comment on above: Result Comment: CBC- COMPLETE BLOOD COUNT Performed By: #### 2 99652 #### [facility],[address] [place] [address] EO # 0.04 x10EE3/UL Normal 0.00 - 0.50 [facility] Comment on above: Performed By: #### 2 22202 #### [facility],[address] [place] [address] Eosinophils/100 WBC (Bld) 0.7 % Normal 0.0 - 7.0 [facility] Comment on above: Performed By: #### 2 99407 #### [facility],[address] [place], [place] [id number] Erythrocyte distribution width (RBC) [Ratio] 15.2 % Normal 12.0 - 15.6 [facility] Comment on above: Performed By: #### 2 07066 #### [facility],[address] [place] [address] Hematocrit (Bld) [Volume fraction] 44.1 % Normal 40.0 - 52.0 [facility] Comment on above: Performed By: #### 2 88739 #### [facility],[address] [place] [address] Hemoglobin (Bld) [Mass/Vol] 15.4 g/dL Normal 13.0 - 17.5 [facility] Comment on above: Performed By: #### 2 20267 #### [facility],[address] [place] [address] Lymph # 0.96 x10EE3/UL Normal 0.80 - 2.80 [facility] Comment on above: Performed By: #### 2 73784 #### [facility],[address] [place], [place] [address] Lymphocytes/100 WBC (Bld) 17.1 % Low 20.0 - 45.0 [facility] Comment on above: Performed By: #### 2 90939 #### [facility],[address] [place] [address] MANUAL DIFF N/A Normal [facility] Comment on above: Performed By: #### 2 27551 #### [facility],[address] [place] [address] MCH (RBC) [Entitic mass] 31 pg Normal 27 - 33 [facility] Comment on above: Performed By: #### 2 86913 #### [address] [address] MCHC 35 X10 3 Normal 32 - 36 [facility] Comment on above: Performed By: #### 2 43342 #### [address] [address] MCV (RBC) [Entitic vol] 88 fL Normal 81 - 98 [facility] Comment on above: Performed By: #### 2 20127 #### [facility],[address] [place] [address] [place] # 0.47 x10EE3/UL Normal 0.20 - 1.00 [facility] Comment on above: Performed By: #### 2 37471 #### [facility],[address] [place] [address] MONOS % 8.4 % Normal 0.0 - 10.0 [facility] Comment on above: Performed By: #### 2 34557 #### [facility],[address] [place] [address] Morphology Rocky (Bld) [Interp] N/A Normal [facility] Comment on above: Performed By: #### 2 04026 #### [facility],[address] [place] [address] Neut # 4.12 x10EE3/UL Normal 1.50 - 7.10 [facility] Comment on above: Performed By: #### 2 42775 #### [place] [address] Neutrophils/100 WBC (Bld) 73.6 % Normal 46.0 - 76.0 [facility] Comment on above: Performed By: #### 2 37440 #### [facility],[address] [place] [address] PLATELET 148 x10EE3/UL Low 150 - 450 [facility] Comment on above: Performed By: #### 2 69250 #### [facility],[address] [place] [address] Platelet mean volume (Bld) [Entitic vol] 8.1 fL Normal 6.4 - 10.5 [facility] Comment on above: Result Comment: AUTO MATED DIFFERENTIAL Performed By: #### 2 07639 #### [facility],[address] [place], [place] [address] RBC 5.02 x 10EE6/UL Normal 4.50 - 6.00 [facility] Comment on above: Performed By: #### 2 36295 #### [facility],[address] [place], [place] [address] WBC 5.6 x 10EE3/UL Normal 4.5 - 10.8 [facility] Comment on above: Performed By: #### 2 52695 #### [facility],[address] [place], [place] [address] CMPon 10-16-2024 Albumin Level 3.6 G/dL Normal 3.2-4.8 [facility] Comment on above: Performed By: #### C BC, MG, GFR, ADIFF, BMP, ANEU #### [address] [address] Albumin/Globulin [Mass ratio] 1.0 {ratio} Normal 0.9-1.6 [facility] Comment on above: Performed By: #### C BC, MG, GFR, ADIFF, BMP, ANEU #### [address] [address] ALP [Catalytic activity/Vol] 70 U/L Normal 38-126 [facility] Comment on above: Performed By: #### C BC, MG, GFR, ADIFF, BMP, ANEU #### [address] [address] ALT [Catalytic activity/Vol] 12 U/L Normal 12-55 [facility] Comment on above: Performed By: #### C BC, MG, GFR, ADIFF, BMP, ANEU #### [address] [address] AST [Catalytic activity/Vol] 17 U/L Normal 8-34 [facility] Comment on above: Performed By: #### C BC, MG, GFR, ADIFF, BMP, ANEU #### [address] [address] Bili Total 0.60 mg/dL Normal 0.20-1.20 [facility] Comment on above: Result Comment: Use of this assay is not recommended for patients undergoing treatment with eltrombopag due to the potential for falsely elevated results. Performed By: #### C BC, MG, GFR, ADIFF, BMP, ANEU #### [place] [address] BUN/Creatinine Ratio 14.1 ratio Normal 10.0-22.0 [facility] Comment on above: Performed By: #### C BC, MG, GFR, ADIFF, BMP, ANEU #### [place] [address] Calcium [Mass/Vol] 9.0 mg/dL Normal 8.7-10.4 [facility] Comment on above: Performed By: #### C BC, MG, GFR, ADIFF, BMP, ANEU #### [place] [address] Chloride [Moles/Vol] 102 mmol/L Normal 98-110 [facility] Comment on above: Performed By: #### C BC, MG, GFR, ADIFF, BMP, ANEU #### [place] [address] CO2 [Moles/Vol] 33 mmol/L High 22-32 [facility] Comment on above: Performed By: #### C BC, MG, GFR, ADIFF, BMP, ANEU #### [place] [address] Creatinine [Mass/Vol] 0.71 mg/dL Normal 0.60-1.40 [facility] Comment on above: Result Comment: Test ing performed on [employer] analyzer using enzymatic creatinine methodology. Performed By: #### C BC, MG, GFR, ADIFF, BMP, ANEU #### [place] [address] Electrolyte Balance 4.0 mEq/L Normal 4.0-15.0 [facility] Comment on above: Performed By: #### C BC, MG, GFR, ADIFF, BMP, ANEU #### [place] [address] Globulin 3.5 G/dL Normal 2.5-4.2 [facility] Comment on above: Performed By: #### C BC, MG, GFR, ADIFF, BMP, ANEU #### [address] [address] Glucose [Mass/Vol] 109 mg/dL Normal 70-110 [facility] Comment on above: Performed By: #### C BC, MG, GFR, ADIFF, BMP, ANEU #### [address] [address] Potassium [Moles/Vol] 3.7 mmol/L Normal 3.5-5.0 [facility] Comment on above: Performed By: #### C BC, MG, GFR, ADIFF, BMP, ANEU #### [address] [address] Sodium [Moles/Vol] 139 mmol/L Normal 136-145 [facility] Comment on above: Performed By: #### C BC, MG, GFR, ADIFF, BMP, ANEU #### [address] [address] Total Protein 7.1 G/dL Normal 5.7-8.2 [facility] Comment on above: Performed By: #### C BC, MG, GFR, ADIFF, BMP, ANEU #### [address] [address] Urea nitrogen [Mass/Vol] 10.0 mg/dL Normal 8.0-22.0 [facility] Comment on above: Performed By: #### C BC, MG, GFR, ADIFF, BMP, ANEU #### [address] [address] CMP with eGFRon 10-16-2024 AGE 54 years Normal [facility] Comment on above: Performed By: #### 2 08648 ####[facility],[address] [place] [address] Albumin [Mass/Vol] 3.4 g/dL Normal 3.4 - 5.0 [facility] Comment on above: Performed By: #### 2 09961 ####[facility],[address] [place] [address] Albumin/Globulin [Mass ratio] 0.9 {ratio} Normal 0.9 - 1.6 [facility] Comment on above: Performed By: #### 2 39051 ####[facility],[address] [place] [address] ALK PHOS 76 U/L Normal 46 - 116 [facility] Comment on above: Performed By: #### 2 16494 ####[facility],[address] [place] [address] ALT [Catalytic activity/Vol] 17 U/L Normal 16 - 63 [facility] Comment on above: Performed By: #### 2 54298 ####[facility],[address] [place] [address] Anion gap [Moles/Vol] 11 mmol/L Normal 10 - 20 [facility] Comment on above: Performed By: #### 2 56107 ####[facility],[address] [place] [address] AST [Catalytic activity/Vol] 17 U/L Normal 15 - 37 [facility] Comment on above: Performed By: #### 2 44684 ####[facility],[address] [place] [address] B/C RATIO 13 ratio Normal 0 - 30 [facility] Comment on above: Performed By: #### 2 28543 ####[facility],[address] [place] [address] Bilirubin [Mass/Vol] 0.5 mg/dL Normal 0.2 - 1.0 [facility] Comment on above: Performed By: #### 2 96403 ####[facility],[address] [place] [address] Calcium [Mass/Vol] 8.9 mg/dL Normal 8.5 - 10.1 [facility] Comment on above: Performed By: #### 2 29099 ####[facility],[address] [place] [address] Chloride [Moles/Vol] 101 mmol/L Normal 98 - 107 [facility] Comment on above: Performed By: #### 2 70286 ####[facility],[address] [place] [address] CMP with eGFR Normal [facility] Comment on above: Result Comment: COMP REHENSIVE METABOLIC PANEL Performed By: #### 2 14039 ####[facility],[address] [place], [place] [address] CO2 [Moles/Vol] 30.7 mmol/L Normal 21.0 - 32.0 [facility] Comment on above: Performed By: #### 2 51282 ####[place] [address] Creatinine [Mass/Vol] 0.96 mg/dL Normal 0.70 - 1.30 [facility] Comment on above: Performed By: #### 2 31654 ####[facility],[address] [place] [address] GFR/1.73 sq M.predicted among non-blacks MDRD (S/P/Bld) [Vol rate/Area] mL/min/{1.73_m2} Normal 60 - 999 [facility] Comment on above: Performed By: #### 2 76575 ####[place] [address] Result Comment: ACCO RDING TO THE NATIONAL KIDNEY DISEASE EDUCATION PROGRAM(NKDE), A NORMAL eGFR IS A VALUE GREATER THAN OR EQUAL TO 60 ML/MIN/1.73 SQ METERS. CHRONIC KIDNEY DISEASE: <60mL/MIN/1.73 SQ METERS KIDNEY FAILURE: <15mL/MIN/1.73 SQ METERS THIS TEST SHOULD ONLY BE USED FOR PATIENTS 18 YEARS OF AGE AND OLDER. Globulin (S) [Mass/Vol] 3.7 g/dL Normal 1.5 - 3.8 [facility] Comment on above: Performed By: #### 2 65382 ####[place] [id number] Glucose [Mass/Vol] 94 mg/dL Normal 74 - 106 [facility] Comment on above: Performed By: #### 2 95605 ####[address] [address] Potassium [Moles/Vol] 3.6 mmol/L Normal 3.5 - 5.1 [facility] Comment on above: Performed By: #### 2 27292 ####[facility],[address] [place] [address] Protein [Mass/Vol] 7.1 g/dL Normal 6.4 - 8.2 [facility] Comment on above: Performed By: #### 2 98848 ####[facility],[address] [place] [address] Sodium [Moles/Vol] 139 mmol/L Normal 136 - 145 [facility] Comment on above: Performed By: #### 2 28079 ####[facility],[address] [place] [address] Urea nitrogen [Mass/Vol] 12 mg/dL Normal 7 - 18 [facility] Comment on above: Performed By: #### 2 55098 ####[facility],[address] [place] [address] ED MED ADMINISTRATION DETAIL on 10-16-2024 ED MED ADMINISTRATION DETAIL Band Booker Medication Administration Record [address] [address] [id number] 10/16/2024 Patient: CARLOS ALBERTO HOROWITZ Sex: Male : 1970 Age: 54y MEASUREMENTS: Wt: 140.2 kg, Ht/Wilson: 69.0 in, BMI: 45.63 ALLERGIES: Bhybxak-BHQ-BdK Reductase Inhibitors Medication Ordered Medication Administration Date/Time [...] Destiney Chu R.N. 1 of 1 Normal [facility] ED NURSES CLINICAL NOTEon ED NURSES CLINICAL NOTE Nurse Narrative Nurse Clinical Narrative [address] [address] [id number] 10/16/2024 12:34:00 Patient: CARLOS ALBERTO HOROWITZ Sex: Male : 1970 Age: 54y Disposition: Transfer to [facility] Disposition Decision Time: 14:27 10/16/2024 Departure [...] had swelling, redness and trouble walking. Treatment ORGANIC CHEMIST: Ice. SEPSIS SCREEN: NEGATIVE. SIRS criteria negative. No possible sources of infection. -- 12:47 10/16/24 EDT Silvina Maguire R.N. 12:47 10/16/24. BP: 171/95 MAP: 120. HR: 93. RR: 18. O2 saturation: 93% Temperature: 98.9 F. Pain level now 10/10. -- 12:47 10/16/24 EDT Silvina Maguire R.N. Measurements: 12:45 10/16/24 Wt: 140.2 kg, Ht/Wilson: 69.0 in, BMI: 45.63 -- 12:45 10/16/24 [facility] Silvina Maguire R.N. 1 of 5 Nurse Narrative Medications: omeprazole 40 mg capsule,delayed release -- 12:51 10/16/24 [facility] Silvina Maguire R.N. dofetilide 250 mcg capsule -- 12:51 10/16/24 [facility] Silvina Maguire R.N. albuterol sulfate 2.5 mg/3 mL (0.083 %) solution for nebulization -- 12:51 10/16/24 [facility] Silvina Maguire R.N. pravastatin 40 mg tablet -- 12:51 10/16/24 [facility] Silvina Maguire R.N. metoprolol succinate ER 100 mg tablet,extended release 24 hr -- 12:51 10/16/24 [facility] Silvina Magurie R.N. spironolactone 25 mg tablet -- 12:51 10/16/24 [facility] Silvina Maguire R.N. trazodone 100 mg tablet -- 12:51 10/16/24 [facility] Silvina Maguire R.N. tizanidine 2 mg tablet -- 12:51 10/16/24 [facility] Silvina Maguire R.N. hydroxyzine pamoate 25 mg capsule -- 12:51 10/16/24 [facility] Silvina Maguire R.N. furosemide 20 mg tablet -- 12:51 10/16/24 [facility] Silvina Maguire R.N. duloxetine 20 mg capsule,delayed release -- 12:51 10/16/24 [facility] Silvina Maguire R.N. budesonide-formoterol HFA 80 mcg-4.5 mcg/actuation aerosol inhaler -- 12:51 10/16/24 [facility] Silvina Maguire R.N. True Metrix Glucose Test Strip -- 12:51 10/16/24 [facility] Silvina Maguire R.N. Xarelto 20 mg tablet -- 12:51 10/16/24 [facility] Silvina Maguire R.N. potassium chloride ER 20 mEq tablet,extended release -- 12:51 10/16/24 [facility] Silvina Maguire R.N. TRUEplus Lancets 28 gauge -- 12:51 10/16/24 EDT Silvina Maguire R.N. Trulicity 1.5 mg/0.5 mL subcutaneous pen injector -- 12:51 10/16/24 EDT Silvina Maguire R.N. Allergies: Kohntnn-OVL-RpM Reductase Inhibitors -- 12:40 10/16/24 EDT Silvina Maguire R.N. Problems: Atrial Fibrillation -- 12:40 10/16/24 EDT [place]ivna Maguire R.N. Congestive Heart Failure -- 12:40 [...] 10/16/24. E (more content not included)... Normal [facility] ED ORDER SHEET (CPOE ONLY)on 10-16-2024 ED ORDER SHEET (CPOE ONLY) Order Sheet Order Sheet [address] [address] [id number] 10/16/2024 Patient: CARLOS ALBERTO HOROWITZ Sex: Male : 1970 Age: 54y MEASUREMENTS: Wt: 140.2 kg, Ht/Wilson: 69.0 in, BMI: 45.63 ALLERGIES: Csjpjyp-UGY-WbI Reductase Inhibitors MEDICATION/IV/DRIP/FL UID ORDERS Order Description [...] 10/16/2024 Reymundo Carvajal Debra Schrock, R.N. R.N. 1 of 3 Order Sheet Lactate, Serum Stat Stat 14:00 10/16/2024 14:18 10/16/2024 14:19 10/16/2024 Reymundo Carvajal Debra Schrock, R.N. R.N. BNP Stat Stat 14:00 10/16/2024 14:10 10/16/2024 14:19 10/16/2024 Reymundo Carvajal Debra Schrock, R.N. R.N. DIAGNOSTIC STUDY ORDERS Order Description Priority Entered Acknowledged Completed Foot R Complete Stat Stat 12:51 10/16/2024 12:58 14:19 Jake Maxwell M.D. 10/16/2024 10/16/2024 Destiney Blackman R.N. R.N. Reason for Study: Trauma/Injury Tib/Fib R 2V [...] (10/16/2024 15:18 EDT)] 3 of 3 Normal [facility] ED PHYSICIAN CLINICAL REPORT on 10-16-2024 ED PHYSICIAN CLINICAL REPORT Narrative Physician Clinical Narrative [address] [address] [id number] 10/16/2024 12:34:00 Patient: CARLOS ALBERTO HOROWITZ Sex: Male : 1970 Age: 54y Disposition: Transfer to [facility] Disposition Decision Time: 14:27 10/16/2024 Measurements [...] pen injector Xarelto 20 mg tablet Allergies: Zmrmeiu-VPX-DjE Reductase Inhibitors SOCIAL HISTORY Does not use [...] 148 x10/UL (more content not included)... Normal [facility] ED [facility] 10-16-2024 ED [facility] [address] [place] [address] [id number] 10/16/2024 Patient: CARLOS ALBERTO HOROWITZ Sex: Male : 1970 Age: 54y Facility Professional Category Item Description Code Code Quantity Fee Total Nurse/E/M EMERGENCY 588308 1 $0.00 $0.00 DEPT VISIT HIGH SEVERITYFUNCJ (20104-67) Nurse/IV/IM/Infusions IVP initial (09687) 136195 1 $0.00 $0.00 Grand $0.00 Total Providers Jake Maxwell M.D. Jake Maxwell M.D. Chief Complaint Injury to right foot and right ankle. Principal Diagnosis Closed displaced, severely angulated right bimalleolar fracture. 1 of 2 [facility] ICD-10 Codes S82.841A: Displaced bimalleolar fracture of right lower leg, initial encounter for closed fracture 2 of 2 Normal [facility] ED VISIT SUMMARYon ED VISIT SUMMARY Visit Overview Visit Overview [address] [place] [address] [id number] 10/16/2024 Patient: CARLOS ALBERTO HOROWITZ Sex: Male : 1970 Age: 54y 10/16/2024 07:42 PM EDT ED Arrival:12:34 10/16/2024 EDT Status: Recent Travel:no Language:eng Adv Directive:No Isolation Status: Ethnicity:N Fall Risk:risk Infectious Disease Exposure:no Measurements:5'9 / 175.3 Self-Harm Status:risk Sepsis Screen:negative cm 309.0 lb / 140.2 kg Chief Complaint:RIGHT LOWER EXTREMITY PAIN, RIGHT LOWER EXTREMITY REDNESS, and RIGHT LOWER EXTREMITY SWELLING ALLERGIES Kwwkgcx-VMJ-GyJ Reductase Inhibitors HOME MEDICATIONS albuterol sulfate 2.5 [...] RIGHT BIMALLEOLAR FRACTURE 4 of 4 Normal [facility] ED VITALS FLOW SHEETon 10-16 ED VITALS FLOW SHEET Vitals Vital Sign Flow Sheet [address] [place] [address] [id number] 10/16/2024 Patient: CRALOS ALBERTO HOROWITZ Sex: Male : 1970 Age: 54y Measurements [...] 98.9 F 10 2 of 2 Normal [facility] FOOT COMPLETE RTon FOOT COMPLETE RT [place] [address] Patient: CARLOS ALBERTO HOROWITZ Phone#: : [phone] Age: 54 Gender: M Pt. Type: ER Account: [id number] Location: [facility] Ordering: JAKE MAXWELL Exam Date: 10/16/2024/13:00 Family Phys: Charge Code: 024318 Physician: [place] Order #: [id number] Dose#: PROCEDURE: X-RAY FOOT RT COMPLETE MIN [...] Bagley MD on 10/16/2024 at 14:23 Normal [facility] LABORATORYOrdered By: SYSTEM SYSTEM on 10-16-2024 Monocyte [...] 1.6 ratio ADM SS ALP [Catalytic activity/Vol] 70 U/L [...] [Moles/Vol] 1.1 mmol/L Normal 0.4 - 2.0 [facility] Comment on above: Performed By: #### 2 69414 #### [address] [address] NT-proBNPon 10-16-2024 Natriuretic peptide B (Bld) [Mass/Vol] 291 pg/mL High 0 - 125 [facility] Comment on above: Performed By: #### 2 33672 #### [address] [address] PROTHROMBIN TIME AND INRon 0 10-16-2024 INR Coag (PPP) [Relative time] 1.4 {INR} High 0.8 - 1.2 [facility] Comment on above: Result Comment: T HE [...] MECHANICAL HEART VALVES Performed By: #### 2 94087 ####[address] [address] PROTHROMBIN TIME AND INR Normal [facility] Comment on above: Result Comment: PROT HROMBIN TIME AND INR Performed By: #### 2 15795 ####[address] [address] PT-COUMADIN 15.9 sec High 9.3 - 14.1 [facility] Comment on above: Performed By: #### 2 17257 ####[facility],[address] [place] [address] TIBIA-FIBULA RTon 10-16-2024 TIBIA-FIBULA RT [facility] [address] [place], [place] [address] Patient: CARLOS ALBERTO HOROWITZ Phone#: : [phone] Age: 54 Gender: M Pt. Type: ER Account: [id number] Location: [facility] Ordering: JAKE MAXWELL Exam Date: 10/16/2024/13:23 Family Phys: Charge Code: 512988 Physician: [place] Order #: [id number] Dose#: PROCEDURE: X-RAY TIB FIB RT 2 [...] Bagley MD on 10/16/2024 at 14:12 Normal [facility] XR ANKLE MINIMUM 3 VIEWS LEF Ton [...] resident's findings and interpretation. Interpreted by: Trace Clark Preliminary Report By: Jordon Levin Electronically signed By Trace Clark Dictated Date: 10/16/2024 10:21:21 PM Prelim Date: 10/16/2024 10:25:23 PM Sign Date: 10/16/2024 10:39:42 PM Ordering Provider: [facility] XR ANKLE MINIMUM 3 VIEWS RIG [...] resident's findings and interpretation. Interpreted by: Trace Clark Preliminary Report By: Jordon Levin Electronically signed By Trace Clark Dictated Date: 10/16/2024 8:55:43 PM Prelim Date: 10/16/2024 8:57:44 PM Sign Date: 10/16/2024 9:20:54 PM Ordering Provider: [facility] MAIN XR ANKLE MINIMUM 3 VIEWS RIGHT [...] resident's findings and interpretation. Interpreted by: Trace Clark Preliminary Report By: Keagan Huggins MD Electronically signed By Trace Clark Dictated Date: 10/16/2024 7:23:46 PM Prelim Date: 10/16/2024 7:53:07 PM Sign Date: 10/16/2024 7:53:07 PM Ordering Provider: EM GARCIA [facility] MAIN XR ANKLE MINIMUM 3 VIEWS RIGHT [...] resident's findings and interpretation. Interpreted by: Trace Clark Preliminary Report By: Jordon Levin Electronically signed By Trace Clark Dictated Date: 10/16/2024 5:48:30 PM Prelim Date: 10/16/2024 5:53:49 PM Sign Date: 10/16/2024 6:28:12 PM Ordering Provider: EM Kate [facility] .Auto Diffon 10-04-2024 Basophil, Absolute 0.0 10 3/mcL Normal 0.0-0.3 [facility] Comment on above: Performed By: #### C BC, MG, GFR, ADIFF, BMP, ANEU #### [facility] [address] [place] [address] Basophils/100 WBC (Bld) 0.9 % Normal 0.0-2.5 A [facility] Comment on above: Performed By: #### C BC, MG, GFR, ADIFF, BMP, ANEU #### [facility] [address] [place] [address] Eosinophil, Absolute 0.1 10 3/mcL Normal 0.0-0.7 [facility] Comment on above: Performed By: #### C BC, MG, GFR, ADIFF, BMP, ANEU #### [address] [address] Eosinophils/100 WBC (Bld) 1.9 % Normal 0.0-6.0 [facility] Comment on above: Performed By: #### C BC, MG, GFR, ADIFF, BMP, ANEU #### [address] [address] Lymphocyte, Absolute 1.0 10 3/mcL Normal 0.9-4.3 [facility] Comment on above: Performed By: #### C BC, MG, GFR, ADIFF, BMP, ANEU #### [address] [address] Lymphocytes/100 WBC (Bld) 24.9 % Normal 20.0-40.0 [facility] Comment on above: Performed By: #### C BC, MG, GFR, ADIFF, BMP, ANEU #### [address] [address] Monocyte, Absolute 0.3 10 3/mcL Normal 0.1-1.4 [facility] Comment on above: Performed By: #### C BC, MG, GFR, ADIFF, BMP, ANEU #### [address] [address] Monocytes/100 WBC (Bld) 7.5 % Normal 2.0-13.0 [facility] Comment on above: Performed By: #### C BC, MG, GFR, ADIFF, BMP, ANEU #### [address] [address] Neutrophils/100 WBC (Bld) 64.8 % Normal 50.0-75.0 [facility] Comment on above: Performed By: #### C BC, MG, GFR, ADIFF, BMP, ANEU #### [address] [address] .GFRon 10-04-2024 Estimated Glomerular Filtration Rate 107 ml/min/1.73sqm Normal [facility] Comment on above: Result Comment: [...] BC, MG, GFR, ADIFF, BMP, ANEU #### [address] [address] .NEUABSon 10-04-2024 Neutrophil, Absolute 2.5 10 3/mcL Normal 2.3-8.1 [facility] Comment on above: Performed By: #### C BC, MG, GFR, ADIFF, BMP, ANEU #### [address] [address] BMPon 10-04-2024 BUN/Creatinine Ratio 6.5 ratio Low 10.0-22.0 [facility] Comment on above: Performed By: #### C BC, MG, GFR, ADIFF, BMP, ANEU #### [address] [address] Calcium [Mass/Vol] 8.5 mg/dL Low 8.7-10.4 [facility] Comment on above: Performed By: #### C BC, MG, GFR, ADIFF, BMP, ANEU #### [address] [address] Chloride [Moles/Vol] 102 mmol/L Normal 98-110 [facility] Comment on above: Performed By: #### C BC, MG, GFR, ADIFF, BMP, ANEU #### [address] [address] CO2 [Moles/Vol] 31 mmol/L Normal 22-32 [facility] Comment on above: Performed By: #### C BC, MG, GFR, ADIFF, BMP, ANEU #### [address] [address] Creatinine [Mass/Vol] 0.77 mg/dL Normal 0.60-1.40 [facility] Comment on above: Result Comment: Test ing performed on [employer] analyzer using enzymatic creatinine methodology. Performed By: #### C BC, MG, GFR, ADIFF, BMP, ANEU #### [place] [id number] Electrolyte Balance 6.0 mEq/L Normal 4.0-15.0 [facility] Comment on above: Performed By: #### C BC, MG, GFR, ADIFF, BMP, ANEU #### [place] [id number] Glucose [Mass/Vol] 108 mg/dL Normal 70-110 [facility] Comment on above: Performed By: #### C BC, MG, GFR, ADIFF, BMP, ANEU #### [place] [address] Potassium [Moles/Vol] 3.5 mmol/L Normal 3.5-5.0 [facility] Comment on above: Performed By: #### C BC, MG, GFR, ADIFF, BMP, ANEU #### [place] [id number] Sodium [Moles/Vol] 139 mmol/L Normal 136-145 [facility] Comment on above: Performed By: #### C BC, MG, GFR, ADIFF, BMP, ANEU #### [place] [id number] Urea nitrogen [Mass/Vol] 5.0 mg/dL Low 8.0-22.0 [facility] Comment on above: Performed By: #### C BC, MG, GFR, ADIFF, BMP, ANEU #### [address] [address] CBCon 10-04-2024 Erythrocyte distribution width (RBC) [Ratio] 17.1 % High 11.5-15.5 [facility] Comment on above: Performed By: #### C BC, MG, GFR, ADIFF, BMP, ANEU #### [place] [id number] Hematocrit (Bld) [Volume fraction] 42.5 % Normal 40.0-52.0 [facility] Comment on above: Performed By: #### C BC, MG, GFR, ADIFF, BMP, ANEU #### [place] [address] Hgb 13.8 G/dL Normal 13.0-17.5 [facility] Comment on above: Performed By: #### C BC, MG, GFR, ADIFF, BMP, ANEU #### [place] [address] MCH (RBC) [Entitic mass] 28.4 pg Normal 27.0-33.0 [facility] Comment on above: Performed By: #### C BC, MG, GFR, ADIFF, BMP, ANEU #### [place] [address] MCHC 32.6 G/dL Normal 32.0-36.0 [facility] Comment on above: Performed By: #### C BC, MG, GFR, ADIFF, BMP, ANEU #### [place] [address] MCV (RBC) [Entitic vol] 87.2 fL Normal 81.0-100.0 [facility] Comment on above: Performed By: #### C BC, MG, GFR, ADIFF, BMP, ANEU #### [place] [address] Platelet 120 10 3/mcL Low 150-450 [facility] Comment on above: Performed By: #### C BC, MG, GFR, ADIFF, BMP, ANEU #### [place] [address] Platelet mean volume (Bld) [Entitic vol] 7.4 fL Normal 6.4-10.5 [facility] Comment on above: Performed By: #### C BC, MG, GFR, ADIFF, BMP, ANEU #### [place] [address] RBC 4.87 10 6/mcL Normal 4.50-6.00 [facility] Comment on above: Performed By: #### C BC, MG, GFR, ADIFF, BMP, ANEU #### [place] [address] WBC 3.8 10 3/mcL Low 4.5-10.8 [facility] Comment on above: Performed By: #### C BC, MG, GFR, ADMAURICIO, BMP, ANEU #### [facility] [address] [place] [address] LABORATORYOrdered By: Adenike Swain on 10-04-2024 Blood Glucose Testing Reason Routine (10/04/24 7:18 AM) [facility] Glucose [Mass/Vol] 100 mg/dL Normal 70 - 110 mg/dL [facility] LABORATORYOrdered By: SYSTEM SYSTEM on 10-04-2024 [...] above: Interpretive Data: T esting performed on [employer] analyzer using enzymatic creatinine methodology. Electrolyte [...] Filtration Rate 107 ml/min/1.73sqm Invalid Interpretation Code AH ADM SS [...] 10-04-2024 Magnesium [Mass/Vol] 1.9 mg/dL Normal 1.6-2.4 [facility] Comment on above: Performed By: #### C BC, MG, GFR, ADIFF, BMP, ANEU #### [address] [address] .Auto Diffon 10-03-2024 Basophil, Absolute 0.0 10 3/mcL Normal 0.0-0.3 [facility] Comment on above: Performed By: #### C BC, MG, GFR, ADIFF, BMP, ANEU #### [address] [address] Basophils/100 WBC (Bld) 0.9 % Normal 0.0-2.5 [facility] Comment on above: Performed By: #### C BC, MG, GFR, ADIFF, BMP, ANEU #### [address] [address] Eosinophil, Absolute 0.1 10 3/mcL Normal 0.0-0.7 [facility] Comment on above: Performed By: #### C BC, MG, GFR, ADIFF, BMP, ANEU #### [address] [address] Eosinophils/100 WBC (Bld) 2.0 % Normal 0.0-6.0 [facility] Comment on above: Performed By: #### C BC, MG, GFR, ADIFF, BMP, ANEU #### [address] [address] Lymphocyte, Absolute 0.9 10 3/mcL Normal 0.9-4.3 [facility] Comment on above: Performed By: #### C BC, MG, GFR, ADIFF, BMP, ANEU #### [address] [address] Lymphocytes/100 WBC (Bld) 21.1 % Normal 20.0-40.0 [facility] Comment on above: Performed By: #### C BC, MG, GFR, ADIFF, BMP, ANEU #### [address] [address] Monocyte, Absolute 0.3 10 3/mcL Normal 0.1-1.4 [facility] Comment on above: Performed By: #### C BC, MG, GFR, ADIFF, BMP, ANEU #### [address] [address] Monocytes/100 WBC (Bld) 7.6 % Normal 2.0-13.0 [facility] Comment on above: Performed By: #### C BC, MG, GFR, ADIFF, BMP, ANEU #### [address] [address] Neutrophils/100 WBC (Bld) 68.4 % Normal 50.0-75.0 [facility] Comment on above: Performed By: #### C BC, MG, GFR, ADIFF, BMP, ANEU #### [address] [address] .GFRon 10-03-2024 Estimated Glomerular Filtration Rate 109 ml/min/1.73sqm Normal [facility] Comment on above: Result Comment: [...] BC, MG, GFR, ADIFF, BMP, ANEU #### [place] [address] .NEUABSon 10-03-2024 Neutrophil, Absolute 2.8 10 3/mcL Normal 2.3-8.1 [facility] Comment on above: Performed By: #### C BC, MG, GFR, ADIFF, BMP, ANEU #### [place] [address] A1Con 10-03-2024 Glucose [Mass/Vol] 114 mg/dL Normal [facility] Comment on above: Result Comment: Zahida mated Average Glucose calculated by equation ((28.7xA1C)-46.7) Estimated average glucose (eAG) is a calculated value from Hemoglobin A1C and is customer sales representative of the average blood glucose level in the last 2-3 month period. Normal range: less than 114 mg/dL Performed By: #### C BC, MG, GFR, ADIFF, BMP, ANEU #### [place] [address] HbA1c (Bld) [Mass fraction] 5.6 % Normal 4.0-6.0 [facility] Comment on above: Performed By: #### C BC, MG, GFR, ADIFF, BMP, ANEU #### [place] [address] CBCon 10-03-2024 Erythrocyte distribution width (RBC) [Ratio] 16.6 % High 11.5-15.5 [facility] Comment on above: Performed By: #### C BC, MG, GFR, ADIFF, BMP, ANEU #### [place] [address] Hematocrit (Bld) [Volume fraction] 41.1 % Normal 40.0-52.0 [facility] Comment on above: Performed By: #### C BC, MG, GFR, ADIFF, BMP, ANEU #### [place] [address] Hgb 13.5 G/dL Normal 13.0-17.5 [facility] Comment on above: Performed By: #### C BC, MG, GFR, ADIFF, BMP, ANEU #### [place] [address] MCH (RBC) [Entitic mass] 28.7 pg Normal 27.0-33.0 [facility] Comment on above: Performed By: #### C BC, MG, GFR, ADIFF, BMP, ANEU #### [place] [address] MCHC 32.9 G/dL Normal 32.0-36.0 [facility] Comment on above: Performed By: #### C BC, MG, GFR, ADIFF, BMP, ANEU #### [place] [address] MCV (RBC) [Entitic vol] 87.2 fL Normal 81.0-100.0 [facility] Comment on above: Performed By: #### C BC, MG, GFR, ADIFF, BMP, ANEU #### [place] [address] Platelet 136 10 3/mcL Low 150-450 [facility] Comment on above: Performed By: #### C BC, MG, GFR, ADIFF, BMP, ANEU #### [place] [address] Platelet mean volume (Bld) [Entitic vol] 7.6 fL Normal 6.4-10.5 [facility] Comment on above: Performed By: #### C BC, MG, GFR, ADIFF, BMP, ANEU #### [place] [address] RBC 4.72 10 6/mcL Normal 4.50-6.00 [facility] Comment on above: Performed By: #### C BC, MG, GFR, ADIFF, BMP, ANEU #### [place] [address] WBC 4.2 10 3/mcL Low 4.5-10.8 [facility] Comment on above: Performed By: #### C BC, MG, GFR, ADIFF, BMP, ANEU #### [place] [id number] CMPon 10-03-2024 Albumin Level 3.3 G/dL Normal 3.2-4.8 [facility] Comment on above: Performed By: #### C BC, MG, GFR, ADIFF, BMP, ANEU #### [place] [address] Albumin/Globulin [Mass ratio] 1.0 {ratio} Normal 0.9-1.6 [facility] Comment on above: Performed By: #### C BC, MG, GFR, ADIFF, BMP, ANEU #### [place] [address] ALP [Catalytic activity/Vol] 56 U/L Normal 38-126 [facility] Comment on above: Performed By: #### C BC, MG, GFR, ADIFF, BMP, ANEU #### [place] [address] ALT [Catalytic activity/Vol] 10 U/L Low 12-55 [facility] Comment on above: Performed By: #### C BC, MG, GFR, ADIFF, BMP, ANEU #### [place] [address] AST [Catalytic activity/Vol] 16 U/L Normal 8-34 [facility] Comment on above: Performed By: #### C BC, MG, GFR, ADIFF, BMP, ANEU #### [place] [address] Bili Total 0.60 mg/dL Normal 0.20-1.20 [facility] Comment on above: Result Comment: Use of this assay is not recommended for patients undergoing treatment with eltrombopag due to the potential for falsely elevated results. Performed By: #### C BC, MG, GFR, ADIFF, BMP, ANEU #### [place] [address] BUN/Creatinine Ratio 9.6 ratio Low 10.0-22.0 [facility] Comment on above: Performed By: #### C BC, MG, GFR, ADIFF, BMP, ANEU #### [place] [address] Calcium [Mass/Vol] 8.4 mg/dL Low 8.7-10.4 [facility] Comment on above: Performed By: #### C BC, MG, GFR, ADIFF, BMP, ANEU #### [address] [address] Chloride [Moles/Vol] 105 mmol/L Normal 98-110 [facility] Comment on above: Performed By: #### C BC, MG, GFR, ADIFF, BMP, ANEU #### [address] [address] CO2 [Moles/Vol] 31 mmol/L Normal 22-32 [facility] Comment on above: Performed By: #### C BC, MG, GFR, ADIFF, BMP, ANEU #### [address] [address] Creatinine [Mass/Vol] 0.73 mg/dL Normal 0.60-1.40 [facility] Comment on above: Result Comment: Test ing performed on [employer] analyzer using enzymatic creatinine methodology. Performed By: #### C BC, MG, GFR, ADIFF, BMP, ANEU #### [address] [address] Electrolyte Balance 1.0 mEq/L Low 4.0-15.0 [facility] Comment on above: Performed By: #### C BC, MG, GFR, ADIFF, BMP, ANEU #### [address] [address] Globulin 3.2 G/dL Normal 2.5-4.2 [facility] Comment on above: Performed By: #### C BC, MG, GFR, ADIFF, BMP, ANEU #### [address] [address] Glucose [Mass/Vol] 109 mg/dL Normal 70-110 [facility] Comment on above: Performed By: #### C BC, MG, GFR, ADIFF, BMP, ANEU #### [address] [address] Potassium [Moles/Vol] 3.5 mmol/L Normal 3.5-5.0 [facility] Comment on above: Performed By: #### C BC, MG, GFR, ADIFF, BMP, ANEU #### [address] [address] Sodium [Moles/Vol] 137 mmol/L Normal 136-145 [facility] Comment on above: Performed By: #### C BC, MG, GFR, ADIFF, BMP, ANEU #### [address] [address] Total Protein 6.5 G/dL Normal 5.7-8.2 [facility] Comment on above: Performed By: #### C BC, MG, GFR, ADIFF, BMP, ANEU #### [address] [address] Urea nitrogen [Mass/Vol] 7.0 mg/dL Low 8.0-22.0 [facility] Comment on above: Performed By: #### C BC, MG, GFR, ADIFF, BMP, ANEU #### [address] [address] LABORATORYOrdered By: Jorge Wahl on 10-03-2024 Blood Glucose Testing Reason Routine (10/03/24 4:57 PM) [facility] Glucose [Mass/Vol] 81 mg/dL Normal 70 - 110 mg/dL [facility] LABORATORYOrdered By: Sophie Simental on 10-03-2024 Blood Glucose Testing Reason Routine (10/03/24 11:18 AM) [facility] Glucose [Mass/Vol] 99 mg/dL Normal 70 - 110 mg/dL [facility] LABORATORYOrdered By: [employer] on 10-03-2024 Albumin BCP dye [Mass/Vol] [...] 16 U/L Normal 8 - 34 U/L AH ADM SS Basophils (Bld) [#/Vol] 0.0 [...] above: Interpretive Data: T esting performed on [employer] analyzer using enzymatic creatinine methodology. Electrolyte Balance [...] value from Hemoglobin A1C and is customer sales representative of the average blood glucose [...] 68.4 % Normal 50.0 - 75.0 % Workflow [...] 10-03-2024 Cholesterol [Mass/Vol] 105 mg/dL Normal 50-199 [facility] Comment on above: Result Comment: Chol esterol Reference Interval: Less than 200 Desirable 200-239 Borderline high risk 240 and above High risk Performed By: #### C BC, MG, GFR, ADIFF, BMP, ANEU #### [facility] [address] [place] [address] Cholesterol in HDL [Mass/Vol] 17 mg/dL Low 40-59 [facility] Comment on above: Performed By: #### C BC, MG, GFR, ADIFF, BMP, ANEU #### [address] [address] Cholesterol in LDL [Mass/Vol] 58 mg/dL Normal 0-129 [facility] Comment on above: Performed By: #### C BC, MG, GFR, ADIFF, BMP, ANEU #### [address] [address] Triglyceride [Mass/Vol] 151 mg/dL High 3-149 [facility] Comment on above: Performed By: #### C BC, MG, GFR, ADIFF, BMP, ANEU #### [address] [address] MGon 10-03-2024 Magnesium [Mass/Vol] 2.1 mg/dL Normal 1.6-2.4 [facility] Comment on above: Performed By: #### C BC, MG, GFR, ADIFF, BMP, ANEU #### [place] [address] .Auto Diffon 10-02-2024 Basophil, Absolute 0.0 10 3/mcL Normal 0.0-0.3 [facility] Comment on above: Performed By: #### A DIFF, ANEU, BMP, CBC, GFR #### [address] [address] Basophils/100 WBC (Bld) 0.6 % Normal 0.0-2.5 [facility] Comment on above: Performed By: #### A DIFF, ANEU, BMP, CBC, GFR #### [place] [id number] Eosinophil, Absolute 0.1 10 3/mcL Normal 0.0-0.7 [facility] Comment on above: Performed By: #### A DIFF, ANEU, BMP, CBC, GFR #### [address] [address] Eosinophils/100 WBC (Bld) 1.0 % Normal 0.0-6.0 [facility] Comment on above: Performed By: #### A DIFF, ANEU, BMP, CBC, GFR #### [address] [address] Lymphocyte, Absolute 1.2 10 3/mcL Normal 0.9-4.3 [facility] Comment on above: Performed By: #### A DIFF, ANEU, BMP, CBC, GFR #### [address] [address] Lymphocytes/100 WBC (Bld) 18.1 % Low 20.0-40.0 [facility] Comment on above: Performed By: #### A DIFF, ANEU, BMP, CBC, GFR #### [address] [address] Monocyte, Absolute 0.7 10 3/mcL Normal 0.1-1.4 [facility] Comment on above: Performed By: #### A DIFF, ANEU, BMP, CBC, GFR #### [address] [address] Monocytes/100 WBC (Bld) 10.0 % Normal 2.0-13.0 [facility] Comment on above: Performed By: #### A DIFF, ANEU, BMP, CBC, GFR #### [address] [address] Neutrophils/100 WBC (Bld) 70.3 % Normal 50.0-75.0 [facility] Comment on above: Performed By: #### A DIFF, ANEU, BMP, CBC, GFR #### [address] [address] Basophil, Absolute 0.1 10 3/mcL Normal 0.0-0.3 [facility] Comment on above: Performed By: #### A ELY REYES, BMP, MG, GFR, ADIFF, DIMER, CBC, PBNP, TROPHS #### [address] [address] Basophils/100 WBC (Bld) 0.8 % Normal 0.0-2.5 [facility] Comment on above: Performed By: #### A MD ERICW, BMP, MG, GFR, ADIFF, DIMER, CBC, PBNP, TROPHS #### [address] [address] Eosinophil, Absolute 0.1 10 3/mcL Normal 0.0-0.[address] [facility] Comment on above: Performed By: #### A ELY REYES, BMP, MG, GFR, ADIFF, DIMER, CBC, PBNP, TROPHS #### [address] [address] Eosinophils/100 WBC (Bld) 1.2 % Normal 0.0-6.0 [facility] Comment on above: Performed By: #### A ELY REYES, BMP, MG, GFR, ADIFF, DIMER, CBC, PBNP, TROPHS #### [address] [address] Lymphocyte, Absolute 1.4 10 3/mcL Normal 0.9-4.[address] [facility] Comment on above: Performed By: #### A ELY REYES, BMP, MG, GFR, ADIFF, DIMER, CBC, PBNP, TROPHS #### [address] [address] Lymphocytes/100 WBC (Bld) 13.3 % Low 20.0-40.0 [facility] Comment on above: Performed By: #### A ELY REYES, BMP, MG, GFR, ADIFF, DIMER, CBC, PBNP, TROPHS #### [address] [address] Monocyte, Absolute 0.8 10 3/mcL Normal 0.1-1.4 [facility] Comment on above: Performed By: #### A ELY REYES, BMP, MG, GFR, ADIFF, DIMER, CBC, PBNP, TROPHS #### [address] [address] Monocytes/100 WBC (Bld) 7.6 % Normal 2.0-13.0 [facility] Comment on above: Performed By: #### A ELY REYES, BMP, MG, GFR, ADIFF, DIMER, CBC, PBNP, TROPHS #### [address] [address] Neutrophils/100 WBC (Bld) 77.1 % High 50.0-75.0 [facility] Comment on above: Performed By: #### A ELY REYES, BMP, MG, GFR, ADIFF, DIMER, CBC, PBNP, TROPHS #### [address] [address] .GFRon 10-02-2024 Estimated Glomerular Filtration Rate 110 ml/min/1.73sqm Normal [facility] Comment on above: Result Comment: [...] BC, MG, GFR, ADIFF, BMP, ANEU #### [address] [address] Estimated Glomerular Filtration Rate 104 ml/min/1.73sqm Normal [...] GFR, ADIFF, DIMER, CBC, PBNP, TROPHS #### [place] [id number] [place], [place] [address] .MDWon 05-07-2025 Monocyte Distribution Width 19.51 Normal 0.00-20.00 [facility] Comment on above: Result Comment: For ED adult patients suspected of sepsis, MDW<=20.0 does not rule out sepsis or risk of sepsis Performed By: #### A ERIC, MDW, BMP, MG, GFR, ADIFF, DIMER, CBC, PBNP, TROPHS #### [address] [address] .NEUABSon 10-02-2024 Neutrophil, Absolute 4.7 10 3/mcL Normal 2.3-8.1 [facility] Comment on above: Performed By: #### A DIFF, ANEU, BMP, CBC, GFR #### [address] [address] Neutrophil, Absolute 8.4 10 3/mcL High 2.3-8.[address] [facility] Comment on above: Performed By: #### A ERIC, MDW, BMP, MG, GFR, ADIFF, DIMER, CBC, PBNP, TROPHS #### [address] [address] APTTon 10-02-2024 aPTT Coag (Bld) [Time] 36.5 s High 25.0-35.0 [facility] Comment on above: Result Comment: For Heparin anticoagulation therapy, the recommended therapeutic range is: 54-77 seconds (APTT Correlation with Anti-Xa therapeutic range of 0.3-0.7 units/ml). PLEASE REFERENCE THE PHARMACY PROTOCOL FOR DOSING. Performed By: #### C BC, MG, GFR, ADIFF, BMP, ANEU #### [address] [address] aPTT Coag (Bld) [Time] 29.3 s Normal 25.0-35.0 [facility] Comment on above: Result Comment: For Heparin anticoagulation therapy, the recommended therapeutic range is: 54-77 seconds (APTT Correlation with Anti-Xa therapeutic range of 0.3-0.7 units/ml). PLEASE REFERENCE THE PHARMACY PROTOCOL FOR DOSING. Performed By: #### A DIFF, ANEU, BMP, CBC, GFR #### [address] [address] BMPon 10-02-2024 BUN/Creatinine Ratio 14 ratio Normal 7-27 [facility] Comment on above: Performed By: #### A ELY REYES, BMP, MG, GFR, ADIFF, DIMER, CBC, PBNP, TROPHS #### [address] [address] Calcium [Mass/Vol] 8.9 mg/dL Normal 8.4-10.2 [facility] Comment on above: Performed By: #### A ELY REYES, BMP, MG, GFR, ADIFF, DIMER, CBC, PBNP, TROPHS #### [address] [address] Chloride [Moles/Vol] 101 mmol/L Normal 98-107 [facility] Comment on above: Performed By: #### A ELY REYES, BMP, MG, GFR, ADIFF, DIMER, CBC, PBNP, TROPHS #### [place] [address] CO2 [Moles/Vol] 31 mmol/L High 22-29 [facility] Comment on above: Performed By: #### A ELY REYES, JULIÁN, MG, GFR, ADIFF, DIMER, CBC, PBNP, TROPHS #### [address] [address] Creatinine [Mass/Vol] 0.85 mg/dL Normal 0.67-1.17 [facility] Comment on above: Performed By: #### A ELY REYES, JULIÁN, MG, GFR, ADIFF, DIMER, CBC, PBNP, TROPHS #### [address] [address] Electrolyte Balance 6.0 mEq/L Normal 4.0-15.0 [facility] Comment on above: Performed By: #### A ELY REYES, BMP, MG, GFR, ADIFF, DIMER, CBC, PBNP, TROPHS #### [address] [address] Glucose [Mass/Vol] 157 mg/dL High 70-105 [facility] Comment on above: Performed By: #### A ELY REYES, BMP, MG, GFR, ADIFF, DIMER, CBC, PBNP, TROPHS #### [address] [address] Potassium [Moles/Vol] 3.1 mmol/L Low 3.5-5.1 [facility] Comment on above: Performed By: #### A ELY REYES, BMP, MG, GFR, ADIFF, DIMER, CBC, PBNP, TROPHS #### [address] [address] Sodium [Moles/Vol] 138 mmol/L Normal 136-145 [facility] Comment on above: Performed By: #### A ELY REYES, BMP, MG, GFR, ADIFF, DIMER, CBC, PBNP, TROPHS #### [address] [address] Urea nitrogen [Mass/Vol] 12 mg/dL Normal 7-18 [facility] Comment on above: Performed By: #### A ELY REYES, BMP, MG, GFR, ADIFF, DIMER, CBC, PBNP, TROPHS #### [address] [address] CAIONon 10-02-2024 Calcium Ionized 1.09 mmol/L Low 1.12-1.32 [facility] Comment on above: Performed By: #### A DIFF, ANEU, BMP, CBC, GFR #### [address] [address] CBCon 10-02-2024 Erythrocyte distribution width (RBC) [Ratio] 16.6 % High 11.5-15.5 [facility] Comment on above: Performed By: #### A DIFF, ANEU, BMP, CBC, GFR #### [address] [address] Hematocrit (Bld) [Volume fraction] 47.4 % Normal 40.0-52.0 [facility] Comment on above: Performed By: #### A DIFF, ANEU, BMP, CBC, GFR #### [address] [address] Hgb 15.6 G/dL Normal 13.0-17.5 [facility] Comment on above: Performed By: #### A DIFF, ANEU, BMP, CBC, GFR #### [place] [id number] MCH (RBC) [Entitic mass] 28.7 pg Normal 27.0-33.0 [facility] Comment on above: Performed By: #### A DIFF, ANEU, BMP, CBC, GFR #### [place] [address] MCHC 32.9 G/dL Normal 32.0-36.0 [facility] Comment on above: Performed By: #### A DIFF, ANEU, BMP, CBC, GFR #### [place] [address] MCV (RBC) [Entitic vol] 87.2 fL Normal 81.0-100.0 [facility] Comment on above: Performed By: #### A DIFF, ANEU, BMP, CBC, GFR #### [place] [address] Platelet 139 10 3/mcL Low 150-450 [facility] Comment on above: Performed By: #### A DIFF, ANEU, BMP, CBC, GFR #### [place] [address] Platelet mean volume (Bld) [Entitic vol] 7.7 fL Normal 6.4-10.5 [facility] Comment on above: Performed By: #### A DIFF, ANEU, BMP, CBC, GFR #### [place] [address] RBC 5.44 10 6/mcL Normal 4.50-6.00 [facility] Comment on above: Performed By: #### A DIFF, ANEU, BMP, CBC, GFR #### [place] [address] WBC 6.6 10 3/mcL Normal 4.5-10.8 [facility] Comment on above: Performed By: #### A DIFF, ANEU, BMP, CBC, GFR #### [place] [address] Erythrocyte distribution width (RBC) [Ratio] 16.6 % High 11.5-15.5 [facility] Comment on above: Performed By: #### A ELY REYES, JULIÁN, MG, GFR, ADIFF, DIMER, CBC, PBNP, TROPHS #### [address] [address] Hematocrit (Bld) [Volume fraction] 51.4 % Normal 40.0-52.0 [facility] Comment on above: Performed By: #### A ELY REYES, JULIÁN, MG, GFR, ADIFF, DIMER, CBC, PBNP, TROPHS #### [place] [address] Hgb 17.1 G/dL Normal 13.0-17.5 [facility] Comment on above: Performed By: #### A ELY REYES, JULIÁN, MG, GFR, ADIFF, DIMER, CBC, PBNP, TROPHS #### [place] [address] MCH (RBC) [Entitic mass] 28.9 pg Normal 27.0-33.0 [facility] Comment on above: Performed By: #### A ELY REYES, JULIÁN, MG, GFR, ADIFF, DIMER, CBC, PBNP, TROPHS #### [address] [address] MCHC 33.3 G/dL Normal 32.0-36.0 [facility] Comment on above: Performed By: #### A ELY REYES, JULIÁN, MG, GFR, ADIFF, DIMER, CBC, PBNP, TROPHS #### [address] [address] MCV (RBC) [Entitic vol] 86.7 fL Normal 81.0-100.0 [facility] Comment on above: Performed By: #### A ELY REYES, JULIÁN, MG, GFR, ADIFF, DIMER, CBC, PBNP, TROPHS #### [place] [address] Platelet 199 10 3/mcL Normal 150-450 [facility] Comment on above: Performed By: #### A ELY REYES, BMP, MG, GFR, ADIFF, DIMER, CBC, PBNP, TROPHS #### [address] [address] Platelet mean volume (Bld) [Entitic vol] 7.3 fL Normal 6.4-10.5 [facility] Comment on above: Performed By: #### A ELY REYES, BMP, MG, GFR, ADIFF, DIMER, CBC, PBNP, TROPHS #### [address] [address] RBC 5.93 10 6/mcL Normal 4.50-6.00 [facility] Comment on above: Performed By: #### A ELY REYES, BMP, MG, GFR, ADIFF, DIMER, CBC, PBNP, TROPHS #### [address] [address] WBC 10.9 10 3/mcL High 4.5-10.8 [facility] Comment on above: Performed By: #### A ELY REYES, BMP, MG, GFR, ADIFF, DIMER, CBC, PBNP, TROPHS #### [address] [address] CMPon 10-02-2024 Albumin Level 3.2 G/dL Normal 3.2-4.8 [facility] Comment on above: Performed By: #### C BC, MG, GFR, ADIFF, BMP, ANEU #### [address] [address] Albumin/Globulin [Mass ratio] 0.9 {ratio} Normal 0.9-1.6 [facility] Comment on above: Performed By: #### C BC, MG, GFR, ADIFF, BMP, ANEU #### [address] [address] ALP [Catalytic activity/Vol] 60 U/L Normal 38-126 [facility] Comment on above: Performed By: #### C BC, MG, GFR, ADIFF, BMP, ANEU #### [address] [address] ALT/SGPT <8 Low 12-55 [facility] Comment on above: Performed By: #### C BC, MG, GFR, ADIFF, BMP, ANEU #### [address] [address] AST [Catalytic activity/Vol] 15 U/L Normal 8-34 [facility] Comment on above: Performed By: #### C BC, MG, GFR, ADIFF, BMP, ANEU #### [address] [address] Bili Total 0.60 mg/dL Normal 0.20-1.20 [facility] Comment on above: Result Comment: Use of this assay is not recommended for patients undergoing treatment with eltrombopag due to the potential for falsely elevated results. Performed By: #### C BC, MG, GFR, ADIFF, BMP, ANEU #### [place] [id number] BUN/Creatinine Ratio 15.5 ratio Normal 10.0-22.0 [facility] Comment on above: Performed By: #### C BC, MG, GFR, ADIFF, BMP, ANEU #### [address] [address] Calcium [Mass/Vol] 8.4 mg/dL Low 8.7-10.4 [facility] Comment on above: Performed By: #### C BC, MG, GFR, ADIFF, BMP, ANEU #### [address] [address] Chloride [Moles/Vol] 102 mmol/L Normal 98-110 [facility] Comment on above: Performed By: #### C BC, MG, GFR, ADIFF, BMP, ANEU #### [address] [address] CO2 [Moles/Vol] 25 mmol/L Normal 22-32 [facility] Comment on above: Performed By: #### C BC, MG, GFR, ADIFF, BMP, ANEU #### [place] [id number] Creatinine [Mass/Vol] 0.71 mg/dL Normal 0.60-1.40 [facility] Comment on above: Result Comment: Test ing performed on [employer] analyzer using enzymatic creatinine methodology. Performed By: #### C BC, MG, GFR, ADIFF, BMP, ANEU #### [address] [address] Electrolyte Balance 12.0 mEq/L Normal 4.0-15.0 [facility] Comment on above: Performed By: #### C BC, MG, GFR, ADIFF, BMP, ANEU #### [address] [address] Globulin 3.5 G/dL Normal 2.5-4.2 [facility] Comment on above: Performed By: #### C BC, MG, GFR, ADIFF, BMP, ANEU #### [place] [id number] Glucose [Mass/Vol] 109 mg/dL Normal 70-110 [facility] Comment on above: Performed By: #### C BC, MG, GFR, ADIFF, BMP, ANEU #### [address] [address] Potassium [Moles/Vol] 3.5 mmol/L Normal 3.5-5.0 [facility] Comment on above: Performed By: #### C BC, MG, GFR, ADIFF, BMP, ANEU #### [address] [address] Sodium [Moles/Vol] 139 mmol/L Normal 136-145 [facility] Comment on above: Performed By: #### C BC, MG, GFR, ADIFF, BMP, ANEU #### [place] [id number] Total Protein 6.7 G/dL Normal 5.7-8.2 [facility] Comment on above: Performed By: #### C BC, MG, GFR, ADIFF, BMP, ANEU #### [address] [address] Urea nitrogen [Mass/Vol] 11.0 mg/dL Normal 8.0-22.0 [facility] Comment on above: Performed By: #### C BC, MG, GFR, ADIFF, BMP, ANEU #### [place] [address] LABORATORYOrdered By: SYSTEM SYSTEM on 10-02-2024 aPTT [...] s Normal 25.0 - 35.0 seconds [employer] Comment on [...] 0 mEq/L AH ADM SS CO2 [Moles/Vol] 25 mmol/L Normal 22 - 32 mEq/L ADM SS Creatinine [Mass/Vol] 0.71 mg/dL Normal 0.60 - 1.40 mg/dL AH ADM SS Comment on above: Interpretive Data: T esting performed on [employer] analyzer using enzymatic creatinine methodology. Electrolyte Balance 12.0 mEq/L Normal 4.0 - 15 .0 mEq/L ADM SS Eosinophils (Bld) [#/Vol] 0.1 103/mcL Normal 0.0 - 0.7 10^3/mcL AH Workflow SS Eosinophils/100 WBC (Bld) 1.0 % [...] Low 2.4 - 5 .1 mg/dL ADM Comment [...] Comment on above: Interpretive Data: T he [employer] (CHEST, 1991, 102:312S-25S) [...] ng/L Male: 0-54 ng/L Testing performed on [a]list games analyzer using direct chemiluminescent technology. TSH Qn [...] ng/L Male: 0-76 ng/L Testing performed on [employer] using a homogeneous sandwich chemiluminescent immunoassay based on [employer] technology. Basophils (Bld) [#/Vol] 0.1 103/mcL Normal [...] Comment on above: Interpretive Data: Baljinder linn [employer] (CHEST, 1992, 102:312S-25S) [...] ng/L Male: 0-76 ng/L Testing performed on [employer] using a homogeneous sandwich chemiluminescent immunoassay based on [employer] technology. Urea nitrogen [Mass/Vol] 12 mg/dL Normal [...] 10-02-2024 Magnesium [Mass/Vol] 1.8 mg/dL Normal 1.6-2.4 [facility] Comment on above: Performed By: #### C BC, MG, GFR, ADIFF, BMP, ANEU #### [address] [address] Magnesium [Mass/Vol] 1.7 mg/dL Low 1.8-2.4 [facility] Comment on above: Performed By: #### A ELY REYES, BMP, MG, GFR, ADIFF, DIMER, CBC, PBNP, TROPHS #### [facility] [address] [place], [place] [address] PBNPon 10-02-2024 Natriuretic peptide B (Bld) [Mass/Vol] 2223 pg/mL High 0-900 [facility] Comment on above: Performed By: #### C BC, MG, GFR, ADIFF, BMP, ANEU #### [address] [address] Natriuretic peptide B (Bld) [Mass/Vol] 973 pg/mL High 0-125 [facility] Comment on above: Result Comment: NT-p roBNP results of less than 300 pg/mL effectively rules out acute congestive heart failure with 99% negative predictive value. Performed By: #### A ELY REYES, BMP, MG, GFR, ADIFF, DIMER, CBC, PBNP, TROPHS #### [facility] [address] [place], [place] [address] PHOSon 10-02-2024 Phosphate [Mass/Vol] 2.2 mg/dL Low 2.4-5.1 [facility] Comment on above: Result Comment: No te - New Reference Range in effect 19 Performed By: #### C BC, MG, GFR, ADIFF, BMP, ANEU #### [address] [address] PROon 10-02-2024 INR Coag (PPP) [Relative time] 1.2 {INR} Normal [facility] Comment on above: Result Comment: The [employer] (CHEST, 1992, 102:312S-25S) recommended therapeutic range for oral anticoagulant therapy is: LOW RISK: Prophylaxis of venous thrombosis INR: 2.0-3.0 Treatment of pulmonary embolism 2.0-3.0 Prevention of systemic embolism 2.0-3.0 HIGH RISK: Mechanical prosthetic valves 2.5-3.5 Performed By: #### A DIFF, ANEU, BMP, CBC, GFR #### [address] [address] PT Coag (PPP) [Time] 13.4 s Normal 9.0-14.4 [facility] Comment on above: Result Comment: Effe ctive 12/11/07, Protime results may be affected by some antibiotics (i.e. Ciprofloxacin, Azithromycin, Bactrim) which may potentiate the action of oral anticoagulants, with further increases in Protime/INR. Performed By: #### A DIFF, ANEU, BMP, CBC, GFR #### [place] [address] [place] [address] PT Coag (PPP) [Time] 13.5 s Normal 9.0-14.4 [facility] Comment on above: Performed By: #### A ELY REYES, BMP, MG, GFR, ADIFF, DIMER, CBC, PBNP, TROPHS #### [address] [address] PT International Ratio 1.[address] [facility] Comment on above: Result Comment: [employer] (CHEST, 1991, 102:312S-25S) recommended therapeutic range for oral anticoagulant therapy is: LOW RISK: Prophylaxis of venous thrombosis INR: 2.0-3.0 Treatment of pulmonary embolism 2.0-3.0 Prevention of systemic embolism 2.0-3.0 HIGH RISK: Mechanical prosthetic valves 2.5-3.5 Performed By: #### A ELY REYES, JULIÁN, MG, GFR, ADIFF, DIMER, CBC, PBNP, TROPHS #### [address] [address] TROPHSon 10-02-2024 High Sensitivity Troponin I 6 ng/L Normal 0-54 [facility] Comment on above: Result Comment: High Sensitive Troponin I Reference Ranges: Female: 0-34 ng/L Male: 0-54 ng/L Testing performed on [a]list games analyzer using direct chemiluminescent technology. Performed By: #### A DIFF, ANEU, BMP, CBC, GFR #### [address] [address] High Sensitivity Troponin I 9 ng/L Normal 0-76 [facility] Comment on above: Result Comment: High Sensitive Troponin I Reference Ranges: Female: 0-51 ng/L Male: 0-76 ng/L Testing performed on [employer] using a homogeneous sandwich chemiluminescent immunoassay based on [employer] technology. Performed By: #### A ELY REYES, JULIÁN, MG, GFR, ADIFF, DIMER, CBC, PBNP, TROPHS #### [address] [address] High Sensitivity Troponin I 9 ng/L Normal 0-76 [facility] Comment on above: Result Comment: High Sensitive Troponin I Reference Ranges: Female: 0-51 ng/L Male: 0-76 ng/L Testing performed on Dimension EXL using a homogeneous sandwich chemiluminescent immunoassay based on LOCI technology. Performed By: #### A ELY REYES, BMP, MG, GFR, ADIFF, DIMER, CBC, PBNP, TROPHS #### [facility] [address] [place], [place] [address] TSHon 10-02-2024 TSH 1.923 mIU/mL Normal 0.550-4.780 [facility] Comment on above: Performed By: #### C BC, MG, GFR, ADIFF, BMP, ANEU #### [facility] [address] [place] [address] XR CHEST 1 VIEWon 10-02-2024 XR CHEST [...] 10/02/2024 2:02:33 AM Ordering Provider: DELORES MURO [facility] XR ANKLE MINIMUM 3 VIEWS LEF [...] 08/29/2024 3:52:38 PM Ordering Provider: EDER FARFAN [facility] XR CHEST 2 VIEWSon XR [...] 08/29/2024 4:51:29 PM Ordering Provider: GIRMA CORREA [facility] .Auto Diffon 08-13-2024 Basophil, Absolute 0.0 10 3/mcL Normal 0.0-0.2 [facility] Comment on above: Performed By: #### A ERIC, MDW, BMP, MG, GFR, ADIFF, DIMER, CBC, PBNP, TROPHS #### [place] [id number] [place], [place] [address] Basophils/100 WBC (Bld) 0.7 % Normal 0.0-2.5 [facility] Comment on above: Performed By: #### A ELY REYES, BMP, MG, GFR, ADIFF, DIMER, CBC, PBNP, TROPHS #### [address] [address] Eosinophil, Absolute 0.1 10 3/mcL Normal 0.0-0.[address] [facility] Comment on above: Performed By: #### A ELY REYES, BMP, MG, GFR, ADIFF, DIMER, CBC, PBNP, TROPHS #### [address] [address] Eosinophils/100 WBC (Bld) 1.3 % Normal 0.0-7.0 [facility] Comment on above: Performed By: #### A ELY REYES, BMP, MG, GFR, ADIFF, DIMER, CBC, PBNP, TROPHS #### [address] [address] Lymphocyte, Absolute 0.8 10 3/mcL Low 0.9-4.[address] [facility] Comment on above: Performed By: #### A ELY REYES, BMP, MG, GFR, ADIFF, DIMER, CBC, PBNP, TROPHS #### [address] [address] Lymphocytes/100 WBC (Bld) 19.9 % Low 20.0-40.0 [facility] Comment on above: Performed By: #### A ELY REYES, BMP, MG, GFR, ADIFF, DIMER, CBC, PBNP, TROPHS #### [address] [address] Monocyte, Absolute 0.3 10 3/mcL Normal 0.1-1.4 [facility] Comment on above: Performed By: #### A ELY REYES, BMP, MG, GFR, ADIFF, DIMER, CBC, PBNP, TROPHS #### [address] [address] Monocytes/100 WBC (Bld) 6.9 % Normal 2.0-13.0 [facility] Comment on above: Performed By: #### A ERIC, W, BMP, MG, GFR, ADIFF, DIMER, CBC, PBNP, TROPHS #### [address] [address] Neutrophils/100 WBC (Bld) 71.2 % Normal 50.0-75.0 [facility] Comment on above: Performed By: #### A ERIC, W, BMP, MG, GFR, ADIFF, DIMER, CBC, PBNP, TROPHS #### [address] [address] .GFRon 08-13-2024 Estimated Glomerular Filtration Rate 107 [...] eGFR results. Performed By: #### A ERIC, W, BMP, MG, GFR, ADIFF, DIMER, CBC, PBNP, TROPHS #### [address] [address] .MDWon 08-13-2024 Monocyte Distribution Width 19.39 Normal 0.00-20.00 [facility] Comment on above: Result Comment: For ED adult patients suspected of sepsis, MDW<=20.0 does not rule out sepsis or risk of sepsis Performed By: #### A ERIC, W, BMP, MG, GFR, ADIFF, DIMER, CBC, PBNP, TROPHS #### [address] [address] .NEUABSon 08-13-2024 Neutrophil, Absolute 2.9 10 3/mcL Normal 2.3-8.[address] [facility] Comment on above: Performed By: #### A ELY REYES, BMP, MG, GFR, ADIFF, DIMER, CBC, PBNP, TROPHS #### [place] [address] CBCon 08-13-2024 Erythrocyte distribution width (RBC) [Ratio] 17.1 % High 11.5-15.5 [facility] Comment on above: Performed By: #### A ELY REYES, BMP, MG, GFR, ADIFF, DIMER, CBC, PBNP, TROPHS #### [place] [address] Hematocrit (Bld) [Volume fraction] 42.8 % Normal 40.0-52.0 [facility] Comment on above: Performed By: #### A ELY REYES, BMP, MG, GFR, ADIFF, DIMER, CBC, PBNP, TROPHS #### [place] [address] Hgb 14.0 G/dL Normal 13.0-17.5 [facility] Comment on above: Performed By: #### A ELY REYES, JULIÁN, MG, GFR, ADIFF, DIMER, CBC, PBNP, TROPHS #### [place] [address] MCH (RBC) [Entitic mass] 27.9 pg Normal 27.0-33.0 [facility] Comment on above: Performed By: #### A ELY REYES, BMP, MG, GFR, ADIFF, DIMER, CBC, PBNP, TROPHS #### [place] [address] MCHC 32.8 G/dL Normal 32.0-36.0 [facility] Comment on above: Performed By: #### A ELY REYES, BMP, MG, GFR, ADIFF, DIMER, CBC, PBNP, TROPHS #### [place] [address] MCV (RBC) [Entitic vol] 84.9 fL Normal 81.0-100.0 [facility] Comment on above: Performed By: #### A ELY REYES, BMP, MG, GFR, ADIFF, DIMER, CBC, PBNP, TROPHS #### [address] [address] Platelet 137 10 3/mcL Low 150-450 [facility] Comment on above: Performed By: #### A ELY REYES, BMP, MG, GFR, ADIFF, DIMER, CBC, PBNP, TROPHS #### [address] [address] Platelet mean volume (Bld) [Entitic vol] 6.7 fL Normal 6.4-10.5 [facility] Comment on above: Performed By: #### A ELY REYES, BMP, MG, GFR, ADIFF, DIMER, CBC, PBNP, TROPHS #### [address] [address] RBC 5.04 10 6/mcL Normal 4.50-6.00 [facility] Comment on above: Performed By: #### A ELY REYES, BMP, MG, GFR, ADIFF, DIMER, CBC, PBNP, TROPHS #### [address] [address] WBC 4.1 10 3/mcL Low 4.5-10.8 [facility] Comment on above: Performed By: #### A ELY REYES, BMP, MG, GFR, ADIFF, DIMER, CBC, PBNP, TROPHS #### [address] [address] CMPon 08-13-2024 Albumin Level 3.3 G/dL Low 3.5-5.0 [facility] Comment on above: Performed By: #### A ELY REYES, BMP, MG, GFR, ADIFF, DIMER, CBC, PBNP, TROPHS #### [address] [address] Albumin/Globulin [Mass ratio] 0.8 {ratio} Low 1.1-2.5 [facility] Comment on above: Performed By: #### A ELY REYES, BMP, MG, GFR, ADIFF, DIMER, CBC, PBNP, TROPHS #### [address] [address] ALP [Catalytic activity/Vol] 76 U/L Normal 40-135 [facility] Comment on above: Performed By: #### A ELY REYES, BMP, MG, GFR, ADIFF, DIMER, CBC, PBNP, TROPHS #### [address] [address] ALT [Catalytic activity/Vol] 10 U/L Low 16-63 [facility] Comment on above: Performed By: #### A ELY REYES, BMP, MG, GFR, ADIFF, DIMER, CBC, PBNP, TROPHS #### [address] [address] AST [Catalytic activity/Vol] 14 U/L Normal 10-40 [facility] Comment on above: Performed By: #### A ELY REYES, BMP, MG, GFR, ADIFF, DIMER, CBC, PBNP, TROPHS #### [address] [address] Bili Total 0.4 mg/dL Normal 0.2-1.0 [facility] Comment on above: Result Comment: Use of this assay is not recommended for patients undergoing treatment with eltrombopag due to the potential for falsely elevated results. Performed By: #### A ELY REYES, BMP, MG, GFR, ADIFF, DIMER, CBC, PBNP, TROPHS #### [address] [address] BUN/Creatinine Ratio 13 ratio Normal 7-27 [facility] Comment on above: Performed By: #### A ELY REYES, BMP, MG, GFR, ADIFF, DIMER, CBC, PBNP, TROPHS #### [address] [address] Calcium [Mass/Vol] 8.6 mg/dL Normal 8.4-10.2 [facility] Comment on above: Performed By: #### A ELY REYES, BMP, MG, GFR, ADIFF, DIMER, CBC, PBNP, TROPHS #### [address] [address] Chloride [Moles/Vol] 101 mmol/L Normal 98-107 [facility] Comment on above: Performed By: #### A ELY REYES, BMP, MG, GFR, ADIFF, DIMER, CBC, PBNP, TROPHS #### [address] [address] CO2 [Moles/Vol] 35 mmol/L High 22-29 [facility] Comment on above: Performed By: #### A ELY REYES, BMP, MG, GFR, ADIFF, DIMER, CBC, PBNP, TROPHS #### [address] [address] Creatinine [Mass/Vol] 0.78 mg/dL Normal 0.70-1.30 [facility] Comment on above: Result Comment: Test ing performed on Siemens Dimension EXL analyzer using a modified kinetic Ciera technique. Performed By: #### A ELY REYES, BMP, MG, GFR, ADIFF, DIMER, CBC, PBNP, TROPHS #### [address] [address] Electrolyte Balance 2.0 mEq/L Low 4.0-15.0 [facility] Comment on above: Performed By: #### A ELY REYES, BMP, MG, GFR, ADIFF, DIMER, CBC, PBNP, TROPHS #### [address] [address] Globulin 3.9 G/dL High 1.5-3.8 [facility] Comment on above: Performed By: #### A ELY REYES, BMP, MG, GFR, ADIFF, DIMER, CBC, PBNP, TROPHS #### [address] [address] Glucose [Mass/Vol] 105 mg/dL Normal 70-105 [facility] Comment on above: Performed By: #### A ELY REYES, BMP, MG, GFR, ADIFF, DIMER, CBC, PBNP, TROPHS #### [address] [address] Potassium [Moles/Vol] 3.8 mmol/L Normal 3.5-5.1 [facility] Comment on above: Performed By: #### A ELY REYES, BMP, MG, GFR, ADIFF, DIMER, CBC, PBNP, TROPHS #### [place] [address] Sodium [Moles/Vol] 138 mmol/L Normal 136-145 [facility] Comment on above: Performed By: #### A ELY REYES, BMP, MG, GFR, ADIFF, DIMER, CBC, PBNP, TROPHS #### [place] [address] Total Protein 7.2 G/dL Normal 6.4-8.2 [facility] Comment on above: Performed By: #### A ELY REYES, BMP, MG, GFR, ADIFF, DIMER, CBC, PBNP, TROPHS #### [place] [address] Urea nitrogen [Mass/Vol] 10 mg/dL Normal 7-18 [facility] Comment on above: Performed By: #### A ELY REYES, BMP, MG, GFR, ADIFF, DIMER, CBC, PBNP, TROPHS #### [address] [address] CVFLURVon 08-13-2024 FLU A PCR Negative Normal Negative [facility] Comment on above: Performed By: #### C VFLURV #### [place] [address] FLU B PCR Negative Normal Negative [facility] Comment on above: Performed By: #### C VFLURV #### [place] [address] RSV PCR Negative Normal Negative [facility] Comment on above: Performed By: #### C VFLURV #### [address] [address] SARS-CoV-2 (COVID-19) RNA ROSE+probe Ql (Unsp spec) [...] results. Performed By: #### C VFLURV #### [address] [address] PBNPon 08-13-2024 Natriuretic peptide B (Bld) [Mass/Vol] 456 pg/mL High 0-125 [facility] Comment on above: Result Comment: NT-p roBNP results of less than 300 pg/mL effectively rules out acute congestive heart failure with 99% negative predictive value. Performed By: #### A ELY REYES, BMP, MG, GFR, ADIFF, DIMER, CBC, PBNP, TROPHS #### [place] [id number] [place], [place] [address] TROPHSon 08-13-2024 High Sensitivity Troponin I 8 ng/L Normal 0-76 [facility] Comment on above: Result Comment: High Sensitive Troponin I Reference Ranges: Female: 0-51 ng/L Male: 0-76 ng/L Testing performed on [employer] using a homogeneous sandwich chemiluminescent immunoassay based on [employer] technology. Performed By: #### A ELY REYES, BMP, MG, GFR, ADIFF, DIMER, CBC, PBNP, TROPHS #### [address] [place], [place] [address] XR CHEST 1 VIEWon 08-13-2024 XR CHEST [...] 08/13/2024 11:55:14 AM Ordering Provider: WILNER JOE [facility] .GFRon 05-14-2024 GFR Non- 90 ml/min/1.73sqm [facility] Comment on above: Result Comment: [...] square meters Performed By: #### A ERIC, ELY, BMP, MG, GFR, ADIFF, DIMER, CBC, PBNP, TROPHS #### [id number] [place], [place] [address] GFR 109 ml/min/1.73sqm [facility] Comment on above: Result Comment: [...] GFR, ADIFF, DIMER, CBC, PBNP, TROPHS #### [address] [address] A1Con 05-14-2024 Glucose [Mass/Vol] 120 mg/dL Normal [facility] Comment on above: Result Comment: Zahida mated Average Glucose calculated by equation ((28.7xA1C)-46.7) Estimated average glucose (eAG) is a calculated value from Hemoglobin A1C and is customer sales representative of the average blood glucose level in the last 2-3 month period. Normal range: less than 114 mg/dL Performed By: #### A ELY REYES, BMP, MG, GFR, ADIFF, DIMER, CBC, PBNP, TROPHS #### [address] [address] HbA1c (Bld) [Mass fraction] 5.8 % Normal 4.3-6.4 [facility] Comment on above: Performed By: #### A ELY REYES, BMP, MG, GFR, ADIFF, DIMER, CBC, PBNP, TROPHS #### [address] [address] CMPon 05-14-2024 Albumin Level 3.4 G/dL Low 3.5-5.0 [facility] Comment on above: Performed By: #### A ELY REYES, BMP, MG, GFR, ADIFF, DIMER, CBC, PBNP, TROPHS #### [place] [address] Albumin/Globulin [Mass ratio] 0.9 {ratio} Low 1.1-2.5 [facility] Comment on above: Performed By: #### A ELY REYES, BMP, MG, GFR, ADIFF, DIMER, CBC, PBNP, TROPHS #### [place] [address] ALP [Catalytic activity/Vol] 87 U/L Normal 40-135 [facility] Comment on above: Performed By: #### A ELY REYES, BMP, MG, GFR, ADIFF, DIMER, CBC, PBNP, TROPHS #### [place] [address] ALT [Catalytic activity/Vol] 17 U/L Normal 16-63 [facility] Comment on above: Performed By: #### A ELY REYES, BMP, MG, GFR, ADIFF, DIMER, CBC, PBNP, TROPHS #### [place] [address] AST [Catalytic activity/Vol] 12 U/L Normal 10-40 [facility] Comment on above: Performed By: #### A ELY REYES, BMP, MG, GFR, ADIFF, DIMER, CBC, PBNP, TROPHS #### [place] [address] Bili Total 0.3 mg/dL Normal 0.2-1.0 [facility] Comment on above: Result Comment: Use of this assay is not recommended for patients undergoing treatment with eltrombopag due to the potential for falsely elevated results. Performed By: #### A ELY REYES, BMP, MG, GFR, ADIFF, DIMER, CBC, PBNP, TROPHS #### [place] [address] BUN/Creatinine Ratio 15 ratio Normal 7-27 [facility] [place] Comment on above: Performed By: #### A ELY REYES, BMP, MG, GFR, ADIFF, DIMER, CBC, PBNP, TROPHS #### [place] [address] Calcium [Mass/Vol] 8.9 mg/dL Normal 8.4-10.2 [facility] Comment on above: Performed By: #### A ELY REYES, BMP, MG, GFR, ADIFF, DIMER, CBC, PBNP, TROPHS #### [address] [address] Chloride [Moles/Vol] 101 mmol/L Normal 98-107 [facility] [place] Comment on above: Performed By: #### A ELY REYES, BMP, MG, GFR, ADIFF, DIMER, CBC, PBNP, TROPHS #### [place] [address] CO2 [Moles/Vol] 34 mmol/L High 22-29 [facility] Comment on above: Performed By: #### A ELY REYES, BMP, MG, GFR, ADIFF, DIMER, CBC, PBNP, TROPHS #### [place] [address] Creatinine [Mass/Vol] 0.89 mg/dL Normal 0.70-1.30 [facility] Comment on above: Result Comment: Test ing performed on Siemens Dimension EXL analyzer using a modified kinetic Ciera technique. Performed By: #### A ELY REYES, BMP, MG, GFR, ADIFF, DIMER, CBC, PBNP, TROPHS #### [place] [address] Electrolyte Balance 5.0 mEq/L Normal 4.0-15.0 [facility] Comment on above: Performed By: #### A ELY REYES, BMP, MG, GFR, ADIFF, DIMER, CBC, PBNP, TROPHS #### [place] [address] Globulin 3.8 G/dL Normal [facility] Comment on above: Performed By: #### A ELY REYES, BMP, MG, GFR, ADIFF, DIMER, CBC, PBNP, TROPHS #### [place] [address] Glucose [Mass/Vol] 99 mg/dL Normal 70-105 [facility] Comment on above: Performed By: #### A ELY REYES, BMP, MG, GFR, ADIFF, DIMER, CBC, PBNP, TROPHS #### [address] [address] Potassium [Moles/Vol] 4.0 mmol/L Normal 3.5-5.1 [facility] Comment on above: Performed By: #### A ELY REYES, BMP, MG, GFR, ADIFF, DIMER, CBC, PBNP, TROPHS #### [address] [address] Sodium [Moles/Vol] 140 mmol/L Normal 136-145 [facility] Comment on above: Performed By: #### A ELY REYES, JULIÁN, MG, GFR, ADIFF, DIMER, CBC, PBNP, TROPHS #### [address] [address] Total Protein 7.2 G/dL Normal 6.4-8.2 [facility] Comment on above: Performed By: #### A ELY REYES, JULIÁN, MG, GFR, ADIFF, DIMER, CBC, PBNP, TROPHS #### [address] [address] Urea nitrogen [Mass/Vol] 13 mg/dL Normal 7-18 [facility] Comment on above: Performed By: #### A ELY REYES, JULIÁN, MG, GFR, ADIFF, DIMER, CBC, PBNP, TROPHS #### [address] [address] LABORATORYOrdered By: SYSTEM SYSTEM on 05-14-2024 Albumin [...] value from Hemoglobin A1C and is customer sales representative of the average blood glucose [...] 05-14-2024 Cholesterol [Mass/Vol] 144 mg/dL Normal 0-[address] [facility] Comment on above: Result Comment: Chol esterol Reference Interval: Less than 200 Desirable 200-239 Borderline high risk 240 and above High risk Performed By: #### A ELY REYES, BMP, MG, GFR, ADIFF, DIMER, CBC, PBNP, TROPHS #### [address] [address] Cholesterol in HDL [Mass/Vol] 24 mg/dL Low 40-60 [facility] Comment on above: Performed By: #### A ELY REYES, JULIÁN, MG, GFR, ADIFF, DIMER, CBC, PBNP, TROPHS #### [address] [address] Cholesterol in LDL [Mass/Vol] 72 mg/dL Normal 0-130 [facility] Comment on above: Performed By: #### A ELY REYES, JULIÁN, MG, GFR, ADIFF, DIMER, CBC, PBNP, TROPHS #### [address] [address] Triglyceride [Mass/Vol] 242 mg/dL High 0-150 [facility] Comment on above: Result Comment: Trig lyceride Reference Interval: Less than 150 Normal 150-199 Borderline high risk 200-499 High risk 500 or higher Very high risk Performed By: #### A ELY REYES, JULIÁN, MG, GFR, ADIFF, DIMER, CBC, PBNP, TROPHS #### [address] [address] Final Surgical Pathology Rep [facility] 03-27-2024 Final Surgical Pathology Report . Pathology Reports Accession: Collected Date/Time: Received Date/Time: Pathologist: [id number] 03/25/2024 15:47 EDT 03/26/2024 07:38 EDT BEAU WILBURN MD Final Surgical Pathology Report DIAGNOSIS: RIGHT ARM EXCISION: - GLOMANGIOMYOMA CLINICAL INFORMATION: SKIN LESION Procedure: EXCISION Preoperative diagnosis: SKIN LESION Postoperative diagnosis: SKIN LESION SPECIMEN: A RIGHT ARM GROSS DESCRIPTION: All parts labelled with patient name and [id number] Received in formalin labelled right arm excision Is a unoriented ellipse of skin measuring 1.5 x 0.4 and excised to depth of 1.2 cm. Excision margin inked black. Skin surface grossly unremarkable, located within the underlying soft tissue is a santillan firm well-circumscribed possible mass/lymph node measuring 0.6 x 0.6 x 0.6 cm. TS-2 Austin Haddad, Pathologists' Principal Administrative Clerk (ASCP) Performed by AUSTIN HADDAD MICROSCOPIC DESCRIPTION: The microscopic examination is performed, except in the case of Gross Only. Electronically Signed by Pathology Report verified by [facility] BEAU WILBURN Sign out Date: 03/27/2024 16:10 Performing Lab: [facility], [address] [place] [address] Pathology Dept Disclaimer If ancillary studies were utilized, the following Laboratory Developed Test (LDT) disclaimer will apply: Under CLIA requirements, [facility] Pathology Laboratory is qualified to perform high complexity testing. For all ancillary stains, positive and negative controls stain appropriately. Performance characteristics of immunohistochemical and chromogenic in-situ hybridization tests have been determined by [facility] Pathology Laboratory. These tests are used [...] Date: 02/18/2024 11:09:23 AM Ordering Provider: GIRMA Kate [facility] TSHon 02-15-2024 TSH Qn 1.65 m[IU]/L Normal 0.36-3.74 [facility] Comment on above: Performed By: #### A ELY REYES, JULIÁN, MG, GFR, ADIFF, DIMER, CBC, PBNP, TROPHS #### [address] [address] .GFRon 02-12-2024 GFR 95 ml/min/1.73sqm [facility] Comment on above: Result Comment: [...] GFR, ADIFF, DIMER, CBC, PBNP, TROPHS #### [place] [id number] [place], [place] [address] GFR Non- 78 ml/min/1.73sqm [facility] Comment on above: Result Comment: [...] GFR, ADIFF, DIMER, CBC, PBNP, TROPHS #### [address] [address] A1Con 02-12-2024 Glucose [Mass/Vol] 131 mg/dL Normal [facility] Comment on above: Result Comment: Zahida mated Average Glucose calculated by equation ((28.7xA1C)-46.7) Estimated average glucose (eAG) is a calculated value from Hemoglobin A1C and is customer sales representative of the average blood glucose level in the last 2-3 month period. Normal range: less than 114 mg/dL Performed By: #### A ELY REYES, JULIÁN, MG, GFR, ADIFF, DIMER, CBC, PBNP, TROPHS #### [address] [address] HbA1c (Bld) [Mass fraction] 6.2 % Normal 4.3-6.4 [facility] Comment on above: Performed By: #### A ELY REYES, JULIÁN, MG, GFR, ADIFF, DIMER, CBC, PBNP, TROPHS #### [address] [address] CMPon 02-12-2024 Albumin Level 3.3 G/dL Low 3.5-5.0 [facility] Comment on above: Performed By: #### A ELY REYES, JULIÁN, MG, GFR, ADIFF, DIMER, CBC, PBNP, TROPHS #### [address] [address] Albumin/Globulin [Mass ratio] 0.9 {ratio} Low 1.1-2.5 [facility] Comment on above: Performed By: #### A ELY REYES, BMP, MG, GFR, ADIFF, DIMER, CBC, PBNP, TROPHS #### [address] [address] ALP [Catalytic activity/Vol] 74 U/L Normal 40-135 [facility] Comment on above: Performed By: #### A ELY REYES, BMP, MG, GFR, ADIFF, DIMER, CBC, PBNP, TROPHS #### [place] [address] ALT [Catalytic activity/Vol] 20 U/L Normal 16-63 [facility] Comment on above: Performed By: #### A ELY REYES, BMP, MG, GFR, ADIFF, DIMER, CBC, PBNP, TROPHS #### [place] [address] AST [Catalytic activity/Vol] 13 U/L Normal 10-40 [facility] Comment on above: Performed By: #### A ELY REYES, BMP, MG, GFR, ADIFF, DIMER, CBC, PBNP, TROPHS #### [place] [address] Bili Total 0.5 mg/dL Normal 0.2-1.0 [facility] Comment on above: Result Comment: Use of this assay is not recommended for patients undergoing treatment with eltrombopag due to the potential for falsely elevated results. Performed By: #### A ELY REYES, JULIÁN, MG, GFR, ADIFF, DIMER, CBC, PBNP, TROPHS #### [address] [address] BUN/Creatinine Ratio 6 ratio Low 7-27 [facility] Comment on above: Performed By: #### A ELY REYES, BMP, MG, GFR, ADIFF, DIMER, CBC, PBNP, TROPHS #### [address] [address] Calcium [Mass/Vol] 8.5 mg/dL Normal 8.4-10.2 [facility] Comment on above: Performed By: #### A ELY REYES, BMP, MG, GFR, ADIFF, DIMER, CBC, PBNP, TROPHS #### [place] [address] Chloride [Moles/Vol] 100 mmol/L Normal 98-107 [facility] Comment on above: Performed By: #### A ELY REYES, BMP, MG, GFR, ADIFF, DIMER, CBC, PBNP, TROPHS #### [place] [address] CO2 [Moles/Vol] 34 mmol/L High 22-29 [facility] Comment on above: Performed By: #### A ELY REYES, BMP, MG, GFR, ADIFF, DIMER, CBC, PBNP, TROPHS #### [place] [address] Creatinine [Mass/Vol] 1.00 mg/dL Normal 0.70-1.30 [facility] Comment on above: Result Comment: Test ing performed on [employer] Dimension EXL analyzer using a modified kinetic Ciera technique. Performed By: #### A ELY REYES, BMP, MG, GFR, ADIFF, DIMER, CBC, PBNP, TROPHS #### [place] [address] Electrolyte Balance 4.0 mEq/L Normal 4.0-15.0 [facility] Comment on above: Performed By: #### A ELY REYES, BMP, MG, GFR, ADIFF, DIMER, CBC, PBNP, TROPHS #### [place] [address] Globulin 3.8 G/dL Normal [facility] Comment on above: Performed By: #### A ELY REYES, BMP, MG, GFR, ADIFF, DIMER, CBC, PBNP, TROPHS #### [place] [address] Glucose [Mass/Vol] 80 mg/dL Normal 70-105 [facility] Comment on above: Performed By: #### A ELY REYES, BMP, MG, GFR, ADIFF, DIMER, CBC, PBNP, TROPHS #### [address] [address] Potassium [Moles/Vol] 4.3 mmol/L Normal 3.5-5.1 [facility] Comment on above: Performed By: #### A ELY REYES, BMP, MG, GFR, ADIFF, DIMER, CBC, PBNP, TROPHS #### [address] [address] Sodium [Moles/Vol] 138 mmol/L Normal 136-145 [facility] Comment on above: Performed By: #### A ELY REYES, JULIÁN, MG, GFR, ADIFF, DIMER, CBC, PBNP, TROPHS #### [address] [address] Total Protein 7.1 G/dL Normal 6.4-8.2 [facility] Comment on above: Performed By: #### A ELY REYES, JULIÁN, MG, GFR, ADIFF, DIMER, CBC, PBNP, TROPHS #### [address] [address] Urea nitrogen [Mass/Vol] 6 mg/dL Low 7-18 [facility] Comment on above: Performed By: #### A ELY REYES, BMP, MG, GFR, ADIFF, DIMER, CBC, PBNP, TROPHS #### [address] [address] LABORATORYOrdered By: SYSTEM SYSTEM on 02-12-2024 Albumin [...] value from Hemoglobin A1C and is customer sales representative of the average blood glucose [...] 02-12-2024 Cholesterol [Mass/Vol] 117 mg/dL Normal 0-[address] [facility] Comment on above: Result Comment: Chol esterol Reference Interval: Less than 200 Desirable 200-239 Borderline high risk 240 and above High risk Performed By: #### A ELY REYES, JULIÁN, MG, GFR, ADIFF, DIMER, CBC, PBNP, TROPHS #### [address] [address] Cholesterol in HDL [Mass/Vol] 25 mg/dL Low 40-60 [facility] Comment on above: Performed By: #### A ELY REYES, JULIÁN, MG, GFR, ADIFF, DIMER, CBC, PBNP, TROPHS #### [address] [address] Cholesterol in LDL [Mass/Vol] 53 mg/dL Normal 0-130 [facility] Comment on above: Performed By: #### A ELY REYES, JULIÁN, MG, GFR, ADIFF, DIMER, CBC, PBNP, TROPHS #### [address] [address] Triglyceride [Mass/Vol] 196 mg/dL High 0-150 [facility] Comment on above: Result Comment: Trig lyceride Reference Interval: Less than 150 Normal 150-199 Borderline high risk 200-499 High risk 500 or higher Very high risk Performed By: #### A ELY REYES, JULIÁN, MG, GFR, ADIFF, DIMER, CBC, PBNP, TROPHS #### [address] [address] PSAon 02-12-2024 Prostate Specific Antigen 0.25 ng/mL Normal 0.00-4.00 [facility] Comment on above: Performed By: #### A ELY REYES, JULIÁN, MG, GFR, ADIFF, DIMER, CBC, PBNP, TROPHS #### [address] [address] .Auto Diffon 02-01-2024 Basophil, Absolute 0.1 10 3/mcL Normal 0.0-0.3 [facility] ([place]) Comment on above: Performed By: #### A DIFF, TROPHS, GFR, BMP, MDW, CBC, PBNP, ANEU #### [address] [address] Basophils/100 WBC (Bld) 0.8 % Normal 0.0-2.5 [facility] ([place]) Comment on above: Performed By: #### A DIFF, TROPHS, GFR, BMP, MDW, CBC, PBNP, ANEU #### [address] [address] Eosinophil, Absolute 0.1 10 3/mcL Normal 0.0-0.7 [facility] ([place]) Comment on above: Performed By: #### A DIFF, TROPHS, GFR, BMP, MDW, CBC, PBNP, ANEU #### [address] [address] Eosinophils/100 WBC (Bld) 1.2 % Normal 0.0-6.0 [facility] ([place]) Comment on above: Performed By: #### A DIFF, TROPHS, GFR, BMP, MDW, CBC, PBNP, ANEU #### [address] [address] Lymphocyte, Absolute 1.4 10 3/mcL Normal 0.9-4.3 [facility] ([place]) Comment on above: Performed By: #### A DIFF, TROPHS, GFR, BMP, MDW, CBC, PBNP, ANEU #### [address] [address] Lymphocytes/100 WBC (Bld) 19.9 % Low 20.0-40.0 [facility] ([place]) Comment on above: Performed By: #### A DIFF, TROPHS, GFR, BMP, MDW, CBC, PBNP, ANEU #### [address] [address] Monocyte, Absolute 0.7 10 3/mcL Normal 0.1-1.4 [facility] ([place]) Comment on above: Performed By: #### A DIFF, TROPHS, GFR, BMP, MDW, CBC, PBNP, ANEU #### [address] [address] Monocytes/100 WBC (Bld) 9.4 % Normal 2.0-13.0 [facility] ([place]) Comment on above: Performed By: #### A DIFF, TROPHS, GFR, BMP, MDW, CBC, PBNP, ANEU #### [address] [address] Neutrophils/100 WBC (Bld) 68.7 % Normal 50.0-75.0 [facility] ([place]) Comment on above: Performed By: #### A DIFF, TROPHS, GFR, BMP, MDW, CBC, PBNP, ANEU #### [address] [address] .GFRon 02-01-2024 GFR >60 Normal [facility] ([place]) Comment on above: Result Comment: GFR Population [...] GFR, BMP, MDW, CBC, PBNP, ANEU #### [address] [address] GFR Non- >60 Normal [facility] ([place]) Comment on above: Result Comment: GFR Population [...] GFR, BMP, MDW, CBC, PBNP, ANEU #### [address] [address] .NEUABSon 02-01-2024 Neutrophil, Absolute 4.8 10 3/mcL Normal 2.3-8.1 [facility] ([place]) Comment on above: Performed By: #### A DIFF, TROPHS, GFR, BMP, MDW, CBC, PBNP, ANEU #### [address] [address] APTTon 02-01-2024 aPTT Coag (Bld) [Time] 47.1 s High 25.0-35.0 [facility] ([place]) Comment on above: Result Comment: For Heparin anticoagulation therapy, the recommended therapeutic range is: 54-77 seconds (APTT Correlation with Anti-Xa therapeutic range of 0.3-0.7 units/ml). PLEASE REFERENCE THE PHARMACY PROTOCOL FOR DOSING. Performed By: #### A DIFF, TROPHS, GFR, BMP, MDW, CBC, PBNP, ANEU #### [address] [address] aPTT Coag (Bld) [Time] 46.1 s High 25.0-35.0 [facility] ([place]) Comment on above: Result Comment: For Heparin anticoagulation therapy, the recommended therapeutic range is: 54-77 seconds (APTT Correlation with Anti-Xa therapeutic range of 0.3-0.7 units/ml). PLEASE REFERENCE THE PHARMACY PROTOCOL FOR DOSING. Performed By: #### A DIFF, TROPHS, GFR, BMP, MDW, CBC, PBNP, ANEU #### [address] [address] BMPon 02-01-2024 BUN/Creatinine Ratio 14.8 ratio Normal 10.0-22.0 [facility] ([place]) Comment on above: Performed By: #### A DIFF, TROPHS, GFR, BMP, MDW, CBC, PBNP, ANEU #### [address] [address] Calcium [Mass/Vol] 8.8 mg/dL Normal 8.7-10.4 [facility] ([place]) Comment on above: Performed By: #### A DIFF, TROPHS, GFR, BMP, MDW, CBC, PBNP, ANEU #### [address] [address] Chloride [Moles/Vol] 100 mmol/L Normal 98-110 [facility] ([place]) Comment on above: Performed By: #### A DIFF, TROPHS, GFR, BMP, MDW, CBC, PBNP, ANEU #### [address] [address] CO2 [Moles/Vol] 32 mmol/L Normal 22-32 [facility] ([place]) Comment on above: Performed By: #### A DIFF, TROPHS, GFR, BMP, MDW, CBC, PBNP, ANEU #### [address] [address] Creatinine [Mass/Vol] 1.15 mg/dL Normal 0.60-1.40 [facility] ([place]) Comment on above: Result Comment: Test ing performed on [employer] analyzer using enzymatic creatinine methodology. Performed By: #### A DIFF, TROPHS, GFR, BMP, MDW, CBC, PBNP, ANEU #### [address] [address] Electrolyte Balance 5.0 mEq/L Normal 4.0-15.0 [facility] ([place]) Comment on above: Performed By: #### A DIFF, TROPHS, GFR, BMP, MDW, CBC, PBNP, ANEU #### [address] [address] Glucose [Mass/Vol] 124 mg/dL High 70-110 [facility] ([place]) Comment on above: Performed By: #### A DIFF, TROPHS, GFR, BMP, MDW, CBC, PBNP, ANEU #### [address] [address] Potassium [Moles/Vol] 3.4 mmol/L Low 3.5-5.0 [facility] ([place]) Comment on above: Performed By: #### A DIFF, TROPHS, GFR, BMP, MDW, CBC, PBNP, ANEU #### [address] [address] Sodium [Moles/Vol] 137 mmol/L Normal 136-145 [facility]) Comment on above: Performed By: #### A DIFF, TROPHS, GFR, BMP, MDW, CBC, PBNP, ANEU #### [address] [address] Urea nitrogen [Mass/Vol] 17.0 mg/dL Normal 8.0-22.0 [facility]) Comment on above: Performed By: #### A DIFF, TROPHS, GFR, BMP, MDW, CBC, PBNP, ANEU #### [address] [address] CBCon 02-01-2024 Erythrocyte distribution width (RBC) [Ratio] 16.2 % High 11.5-15.5 [facility] ([place]) Comment on above: Performed By: #### A DIFF, TROPHS, GFR, BMP, MDW, CBC, PBNP, ANEU #### [address] [address] Hematocrit (Bld) [Volume fraction] 40.5 % Normal 40.0-52.0 [facility] ([place]) Comment on above: Performed By: #### A DIFF, TROPHS, GFR, BMP, MDW, CBC, PBNP, ANEU #### [address] [address] Hgb 13.0 G/dL Normal 13.0-17.5 [facility] ([place]) Comment on above: Performed By: #### A DIFF, TROPHS, GFR, BMP, MDW, CBC, PBNP, ANEU #### [address] [address] MCH (RBC) [Entitic mass] 26.0 pg Low 27.0-33.0 [facility] ([place]) Comment on above: Performed By: #### A DIFF, TROPHS, GFR, BMP, MDW, CBC, PBNP, ANEU #### [address] [address] MCHC 32.2 G/dL Normal 32.0-36.0 [facility] ([place]) Comment on above: Performed By: #### A DIFF, TROPHS, GFR, BMP, MDW, CBC, PBNP, ANEU #### [address] [address] MCV (RBC) [Entitic vol] 80.6 fL Low 81.0-100.0 [facility] ([place]) Comment on above: Performed By: #### A DIFF, TROPHS, GFR, BMP, MDW, CBC, PBNP, ANEU #### [address] [address] Platelet 161 10 3/mcL Normal 150-450 [facility] ([place]) Comment on above: Performed By: #### A DIFF, TROPHS, GFR, BMP, MDW, CBC, PBNP, ANEU #### [address] [address] Platelet mean volume (Bld) [Entitic vol] 6.8 fL Normal 6.4-10.5 [facility] ([place]) Comment on above: Performed By: #### A DIFF, TROPHS, GFR, BMP, MDW, CBC, PBNP, ANEU #### [address] [address] RBC 5.02 10 6/mcL Normal 4.50-6.00 [facility] ([place]) Comment on above: Performed By: #### A DIFF, TROPHS, GFR, BMP, MDW, CBC, PBNP, ANEU #### [address] [address] WBC 6.9 10 3/mcL Normal 4.5-10.8 [facility] ([place]) Comment on above: Performed By: #### A DIFF, TROPHS, GFR, BMP, MDW, CBC, PBNP, ANEU #### [facility] [address] [place], [place] [address] LABORATORYOrdered By: SYSTEM SYSTEM on 02-01-2024 aPTT [...] 1.15 mg/dL Normal 0.60 - 1.40 mg/dL AH ADM SS Comment on above: Interpretive Data: T esting performed on [employer] analyzer using enzymatic creatinine methodology. Electrolyte Balance 5.0 mEq/L Normal 4.0 - 15 .0 mEq/L ADM SS Eosinophils (Bld) [#/Vol] 0.1 103/mcL Normal 0.0 - 0.7 10^3/mcL AH Workflow SS Eosinophils/100 WBC (Bld) 1.2 % [...] 110 mg/dL ADM Hematocrit (Bld) [Volume fraction] 40.5 % Normal [...] 14.8 ratio Normal 10.0 - 22.0 ratio ADM SS WBC (Bld) [#/Vol] 6.9 103/mcL Normal 4.5 - 10.8 10^3/mcL Workflow SS MGon 09-05-2024 Magnesium [Mass/Vol] 2.2 mg/dL Normal 1.6-2.4 [facility] ([place]) Comment on above: Performed By: #### A DIFF, TROPHS, GFR, BMP, MDW, CBC, PBNP, ANEU #### [address] [address] .Auto Diffon 01-31-2024 Basophil, Absolute 0.1 10 3/mcL Normal 0.0-0.3 [facility] ([place]) Comment on above: Performed By: #### A DIFF, TROPHS, GFR, BMP, MDW, CBC, PBNP, ANEU #### [address] [address] Basophils/100 WBC (Bld) 1.0 % Normal 0.0-2.5 [facility] ([place]) Comment on above: Performed By: #### A DIFF, TROPHS, GFR, BMP, MDW, CBC, PBNP, ANEU #### [address] [address] Eosinophil, Absolute 0.1 10 3/mcL Normal 0.0-0.7 [facility] ([place]) Comment on above: Performed By: #### A DIFF, TROPHS, GFR, BMP, MDW, CBC, PBNP, ANEU #### [address] [address] Eosinophils/100 WBC (Bld) 1.1 % Normal 0.0-6.0 [facility] ([place]) Comment on above: Performed By: #### A DIFF, TROPHS, GFR, BMP, MDW, CBC, PBNP, ANEU #### [address] [address] Lymphocyte, Absolute 3.0 10 3/mcL Normal 0.9-4.3 [facility] ([place]) Comment on above: Performed By: #### A DIFF, TROPHS, GFR, BMP, MDW, CBC, PBNP, ANEU #### [address] [address] Lymphocytes/100 WBC (Bld) 22.7 % Normal 20.0-40.0 [facility] ([place]) Comment on above: Performed By: #### A DIFF, TROPHS, GFR, BMP, MDW, CBC, PBNP, ANEU #### [address] [address] Monocyte, Absolute 1.4 10 3/mcL Normal 0.1-1.4 [facility] ([place]) Comment on above: Performed By: #### A DIFF, TROPHS, GFR, BMP, MDW, CBC, PBNP, ANEU #### [address] [address] Monocytes/100 WBC (Bld) 11.0 % Normal 2.0-13.0 [facility] ([place]) Comment on above: Performed By: #### A DIFF, TROPHS, GFR, BMP, MDW, CBC, PBNP, ANEU #### [address] [address] Neutrophils/100 WBC (Bld) 64.2 % Normal 50.0-75.0 [facility] ([place]) Comment on above: Performed By: #### A DIFF, TROPHS, GFR, BMP, MDW, CBC, PBNP, ANEU #### [address] [address] .GFRon 01-31-2024 GFR 46 ml/min/1.73sqm Normal [facility] [facility] ([place]) Comment on above: Result Comment: GFR Population [...] BMP, MDW, CBC, PBNP, ANEU #### [place] [address] [place], [place] [address] GFR Non- 38 ml/min/1.73sqm Normal [facility] ([place]) Comment on above: Result Comment: GFR Population [...] GFR, BMP, MDW, CBC, PBNP, ANEU #### [address] [address] .NEUABSon 01-31-2024 Neutrophil, Absolute 8.5 10 3/mcL High 2.3-8.1 [facility] ([place]) Comment on above: Performed By: #### A DIFF, TROPHS, GFR, BMP, MDW, CBC, PBNP, ANEU #### [address] [address] APTTon 01-31-2024 aPTT Coag (Bld) [Time] 34.5 s Normal 25.0-35.0 [facility] ([place]) Comment on above: Result Comment: For Heparin anticoagulation therapy, the recommended therapeutic range is: 54-77 seconds (APTT Correlation with Anti-Xa therapeutic range of 0.3-0.7 units/ml). PLEASE REFERENCE THE PHARMACY PROTOCOL FOR DOSING. Performed By: #### A DIFF, TROPHS, GFR, BMP, MDW, CBC, PBNP, ANEU #### [address] [address] aPTT Coag (Bld) [Time] 33.9 s Normal 25.0-35.0 [facility] ([place] Comment on above: Result Comment: For Heparin anticoagulation therapy, the recommended therapeutic range is: 54-77 seconds (APTT Correlation with Anti-Xa therapeutic range of 0.3-0.7 units/ml). PLEASE REFERENCE THE PHARMACY PROTOCOL FOR DOSING. Performed By: #### A DIFF, TROPHS, GFR, BMP, MDW, CBC, PBNP, ANEU #### [address] [address] aPTT Coag (Bld) [Time] 26.2 s Normal 25.0-35.0 [facility] ([place] Comment on above: Result Comment: For Heparin anticoagulation therapy, the recommended therapeutic range is: 54-77 seconds (APTT Correlation with Anti-Xa therapeutic range of 0.3-0.7 units/ml). PLEASE REFERENCE THE PHARMACY PROTOCOL FOR DOSING. Performed By: #### A DIFF, TROPHS, GFR, BMP, MDW, CBC, PBNP, ANEU #### [address] [address] CAIONon 01-31-2024 Calcium Ionized 1.07 mmol/L Low 1.12-1.32 [facility] ([place] Comment on above: Performed By: #### T ROPHS, CMP, CAION, LAC, CBC, ADIFF, GFR, PHOS, MG, ANEU #### [address] [address] CBCon 01-31-2024 Erythrocyte distribution width (RBC) [Ratio] 16.3 % High 11.5-15.5 [facility] ([place] Comment on above: Performed By: #### A DIFF, TROPHS, GFR, BMP, MDW, CBC, PBNP, ANEU #### [address] [address] Hematocrit (Bld) [Volume fraction] 42.8 % Normal 40.0-52.0 [facility] ([place] Comment on above: Performed By: #### A DIFF, TROPHS, GFR, BMP, MDW, CBC, PBNP, ANEU #### [address] [address] Hgb 14.0 G/dL Normal 13.0-17.5 [facility] ([place] Comment on above: Performed By: #### A DIFF, TROPHS, GFR, BMP, MDW, CBC, PBNP, ANEU #### [address] [address] MCH (RBC) [Entitic mass] 25.9 pg Low 27.0-33.0 [facility] ([place] Comment on above: Performed By: #### A DIFF, TROPHS, GFR, BMP, MDW, CBC, PBNP, ANEU #### [address] [address] MCHC 32.6 G/dL Normal 32.0-36.0 [facility] ([place] Comment on above: Performed By: #### A DIFF, TROPHS, GFR, BMP, MDW, CBC, PBNP, ANEU #### [address] [address] MCV (RBC) [Entitic vol] 79.5 fL Low 81.0-100.0 [facility] ([place]) Comment on above: Performed By: #### A DIFF, TROPHS, GFR, BMP, MDW, CBC, PBNP, ANEU #### [address] [address] Platelet 270 10 3/mcL Normal 150-450 [facility] ([place]) Comment on above: Performed By: #### A DIFF, TROPHS, GFR, BMP, MDW, CBC, PBNP, ANEU #### [address] [address] Platelet mean volume (Bld) [Entitic vol] 7.0 fL Normal 6.4-10.5 [facility] ([place] Comment on above: Performed By: #### A DIFF, TROPHS, GFR, BMP, MDW, CBC, PBNP, ANEU #### [address] [address] RBC 5.39 10 6/mcL Normal 4.50-6.00 [facility] ([place]) Comment on above: Performed By: #### A DIFF, TROPHS, GFR, BMP, MDW, CBC, PBNP, ANEU #### [address] [address] WBC 13.2 10 3/mcL High 4.5-10.8 [facility] ([place]) Comment on above: Performed By: #### A DIFF, TROPHS, GFR, BMP, MDW, CBC, PBNP, ANEU #### [address] [address] CMPon 01-31-2024 Albumin Level 3.0 G/dL Low 3.2-4.8 [facility] ([place]) Comment on above: Performed By: #### A DIFF, TROPHS, GFR, BMP, MDW, CBC, PBNP, ANEU #### [address] [address] Albumin/Globulin [Mass ratio] 0.8 {ratio} Low 0.9-1.6 [facility] ([place] Comment on above: Performed By: #### A DIFF, TROPHS, GFR, BMP, MDW, CBC, PBNP, ANEU #### [address] [address] ALP [Catalytic activity/Vol] 77 U/L Normal 38-126 [facility] ([place] Comment on above: Performed By: #### A DIFF, TROPHS, GFR, BMP, MDW, CBC, PBNP, ANEU #### [address] [address] ALT/SGPT <8 Low 12-55 [facility] ([place] Comment on above: Performed By: #### A DIFF, TROPHS, GFR, BMP, MDW, CBC, PBNP, ANEU #### [address] [address] AST [Catalytic activity/Vol] 12 U/L Normal 8-34 [facility] ([place] Comment on above: Performed By: #### A DIFF, TROPHS, GFR, BMP, MDW, CBC, PBNP, ANEU #### [address] [address] Bili Total 0.40 mg/dL Normal 0.20-1.20 [facility] ([place] Comment on above: Result Comment: Use of this assay is not recommended for patients undergoing treatment with eltrombopag due to the potential for falsely elevated results. Performed By: #### A DIFF, TROPHS, GFR, BMP, MDW, CBC, PBNP, ANEU #### [address] [address] BUN/Creatinine Ratio 11.2 ratio Normal 10.0-22.0 [facility] ([place]) Comment on above: Performed By: #### A DIFF, TROPHS, GFR, BMP, MDW, CBC, PBNP, ANEU #### [address] [address] Calcium [Mass/Vol] 8.8 mg/dL Normal 8.7-10.4 [facility] ([place]) Comment on above: Performed By: #### A DIFF, TROPHS, GFR, BMP, MDW, CBC, PBNP, ANEU #### [address] [address] Chloride [Moles/Vol] 100 mmol/L Normal 98-110 [facility] ([place]) Comment on above: Performed By: #### A DIFF, TROPHS, GFR, BMP, MDW, CBC, PBNP, ANEU #### [address] [address] CO2 [Moles/Vol] 29 mmol/L Normal 22-32 [facility] ([place]) Comment on above: Performed By: #### A DIFF, TROPHS, GFR, BMP, MDW, CBC, PBNP, ANEU #### [address] [address] Creatinine [Mass/Vol] 1.87 mg/dL High 0.60-1.40 [facility] ([place]) Comment on above: Result Comment: Test ing performed on [employer] analyzer using enzymatic creatinine methodology. Performed By: #### A DIFF, TROPHS, GFR, BMP, MDW, CBC, PBNP, ANEU #### [address] [address] Electrolyte Balance 8.0 mEq/L Normal 4.0-15.0 [facility] ([place]) Comment on above: Performed By: #### A DIFF, TROPHS, GFR, BMP, MDW, CBC, PBNP, ANEU #### [address] [address] Globulin 3.7 G/dL Normal 1.5-3.8 [facility] ([place] Comment on above: Performed By: #### A DIFF, TROPHS, GFR, BMP, MDW, CBC, PBNP, ANEU #### [address] [address] Glucose [Mass/Vol] 133 mg/dL High 70-110 [facility] ([place]) Comment on above: Performed By: #### A DIFF, TROPHS, GFR, BMP, MDW, CBC, PBNP, ANEU #### [address] [address] Potassium [Moles/Vol] 3.6 mmol/L Normal 3.5-5.0 [facility] ([place]) Comment on above: Performed By: #### A DIFF, TROPHS, GFR, BMP, MDW, CBC, PBNP, ANEU #### [address] [address] Sodium [Moles/Vol] 137 mmol/L Normal 136-145 [facility] ([place]) Comment on above: Performed By: #### A DIFF, TROPHS, GFR, BMP, MDW, CBC, PBNP, ANEU #### [address] [address] Total Protein 6.7 G/dL Normal 5.7-8.2 [facility] ([place]) Comment on above: Result Comment: No te - New Reference Range in effect 19 Performed By: #### A DIFF, TROPHS, GFR, BMP, MDW, CBC, PBNP, ANEU #### [address] [address] Urea nitrogen [Mass/Vol] 21.0 mg/dL Normal 8.0-22.0 [facility] ([place] Comment on above: Performed By: #### A DIFF, TROPHS, GFR, BMP, MDW, CBC, PBNP, ANEU #### [address] [address] CVFLURVon 01-31-2024 FLU A PCR Negative Normal Negative [facility] ([place]) Comment on above: Result Comment: [place] [id number] Performed By: #### A DIFF, TROPHS, GFR, BMP, MDW, CBC, PBNP, ANEU #### [place] [address] FLU B PCR Negative Normal Negative [facility] ([place]) Comment on above: Result Comment: [place] [id number] Performed By: #### A DIFF, TROPHS, GFR, BMP, MDW, CBC, PBNP, ANEU #### [address] [address] RSV PCR Negative Normal Negative [facility] ([place]) Comment on above: Result Comment: [place] [id number] Performed By: #### A DIFF, TROPHS, GFR, BMP, MDW, CBC, PBNP, ANEU #### [place] [address] SARS-CoV-2 (COVID-19) RNA ROSE+probe Ql (Unsp spec) Negative Normal Negative [facility] ([place]) Comment on above: Result Comment: [place] [id number] This test has been authorized by FDA [...] BMP, MDW, CBC, PBNP, ANEU #### [place] [address] LABORATORYOrdered By: SYSTEM SYSTEM on 01-31-2024 aPTT [...] above: Interpretive Data: T esting performed on [employer] analyzer using enzymatic creatinine methodology. Electrolyte Balance [...] 133 mg/dL High 70 - 110 mg/dL AH ADM SS Hematocrit (Bld) [Volume fraction] 42.8 [...] mg/dL Low 1.6 - 2 .4 mg/dL AH ADM SS MCH (RBC) [Entitic mass] 25.9 [...] 64.2 % Normal 50.0 - 75.0 % AH Workflow SS Phosphate [Mass/Vol] 3.1 mg/dL Normal [...] International Ratio 1.3 ratio Invalid Interpretation Code HemIAub Comment on above: Interpretive Data: Baljinder linn [employer] (CHEST, 1992, 102:[id number]) [...] ng/L Male: 0-54 ng/L Testing performed on [a][employer] analyzer using direct chemiluminescent technology. Urea nitrogen [Mass/Vol] 21.0 mg/dL Normal 8.0 - 22.0 mg/dL ADM Urea nitrogen/Creatinine [Mass ratio] 11.2 ratio Normal 10.0 - 22.0 ratio AH ADM SS WBC (Bld) [#/Vol] 13.2 103/mcL High 4.5 - 10.8 10^3/mcL AH Workflow SS LABORATORYOrdered By: Yoanna Coleman on 01-31-2024 Blood Glucose Testing Reason Routine (01/31/24 7:30 AM) [facility] Glucose [Mass/Vol] 146 mg/dL High 70 - 110 mg/dL [facility] LABORATORYOrdered By: Jacqueline Ospina on 01-31-2024 FLUAV RNA ROSE+probe Ql (Resp) Negative 15 (01/31/24 4:30 AM) Normal Negative AH Auto Viro/Sero SS Comment on above: Result Comment: [place] [id number] FLUBV RNA ROSE+probe Ql (Resp) Negative 16 (01/31/24 4:30 AM) Normal Negative AH Auto Viro/Sero SS Comment on above: Result Comment: [place] [id number] RSV PCR Negative 17 (01/31/24 4:30 AM) Normal Negative AH Auto Viro/Sero SS Comment on above: Result Comment: [place] s [id number] SARS-CoV-2 (COVID-19) RNA ROSE+probe Ql (Resp) Negative 13, 14 (01/31/24 4:30 AM) Normal Negative AH Auto Viro/Sero SS Comment on above: Result Comment: Note s [id number] Interpretive Data: T his test has been [...] 1.07 mmol/L Low 1.12 - 1.32 mmol/L Main Rapid Comm SS LABORATORYOrdered By: Roshan Galarza on 01-31-2024 Blood Glucose Testing Reason Routine (01/31/24 2:48 AM) [facility] Glucose [Mass/Vol] 153 mg/dL High 70 - 110 mg/dL [facility] LACon 01-31-2024 Lactic Acid Lvl 1.2 mmol/L Normal 0.5-2.2 [facility] ([place]) Comment on above: Result Comment: Spec imen hemolyzed. Results may be affected. Performed By: #### A DIFF, TROPHS, GFR, BMP, MDW, CBC, PBNP, ANEU #### [address] [address] MGon 01-31-2024 Magnesium [Mass/Vol] 1.5 mg/dL Low 1.6-2.4 [facility] ([place]) Comment on above: Performed By: #### A DIFF, TROPHS, GFR, BMP, MDW, CBC, PBNP, ANEU #### [address] [address] No Panel Informationon 01-30 Microscopic examination of blood, culture Culture has been received in lab and is no growth to date. Routine cultures are held for 5 days. [facility] PHOSon 01-31-2024 Phosphate [Mass/Vol] 3.1 mg/dL Normal 2.4-5.1 [facility] ([place]) Comment on above: Result Comment: No te - New Reference Range in effect 19 Performed By: #### A DIFF, TROPHS, GFR, BMP, MDW, CBC, PBNP, ANEU #### [address] [address] PROon 01-31-2024 INR Coag (PPP) [Relative time] 1.3 {INR} Normal [facility] ([place]) Comment on above: Result Comment: [employer] (CHEST, 1992, 102:[id number]) recommended therapeutic range for oral anticoagulant therapy is: LOW RISK: Prophylaxis of venous thrombosis INR: 2.0-3.0 Treatment of pulmonary embolism 2.0-3.0 Prevention of systemic embolism 2.0-3.0 HIGH RISK: Mechanical prosthetic valves 2.5-3.5 Performed By: #### A DIFF, TROPHS, GFR, BMP, MDW, CBC, PBNP, ANEU #### [address] [address] PT Coag (PPP) [Time] 14.7 s High 9.0-14.4 [facility] ([place]) Comment on above: Result Comment: Effe ctive 12/11/07, Protime results may be affected by some antibiotics (i.e. Ciprofloxacin, Azithromycin, Bactrim) which may potentiate the action of oral anticoagulants, with further increases in Protime/INR. Performed By: #### A DIFF, TROPHS, GFR, BMP, MDW, CBC, PBNP, ANEU #### [address] [address] TROPHSon 01-31-2024 High Sensitivity Troponin I 4 ng/L Normal 0-54 [facility] ([place]) Comment on above: Result Comment: High Sensitive Troponin I Reference Ranges: Female: 0-34 ng/L Male: 0-54 ng/L Testing performed on [a][employer] analyzer using direct chemiluminescent technology. Performed By: #### A DIFF, TROPHS, GFR, BMP, MDW, CBC, PBNP, ANEU #### [address] [address] .Auto Diffon 01-30-2024 Basophil, Absolute 0.2 10 3/mcL Normal 0.0-0.2 [facility] ([place]) Comment on above: Performed By: #### A DIFF, TROPHS, GFR, BMP, MDW, CBC, PBNP, ANEU #### [address] [address] Basophils/100 WBC (Bld) 1.1 % Normal 0.0-2.5 [facility] ([place] Comment on above: Performed By: #### A DIFF, TROPHS, GFR, BMP, MDW, CBC, PBNP, ANEU #### [address] [address] Eosinophil, Absolute 0.1 10 3/mcL Normal 0.0-0.4 [facility] ([place]) Comment on above: Performed By: #### A DIFF, TROPHS, GFR, BMP, MDW, CBC, PBNP, ANEU #### [address] [address] Eosinophils/100 WBC (Bld) 0.7 % Normal 0.0-7.0 [facility] ([place] Comment on above: Performed By: #### A DIFF, TROPHS, GFR, BMP, MDW, CBC, PBNP, ANEU #### [address] [address] Lymphocyte, Absolute 2.8 10 3/mcL Normal 0.8-3.9 [facility] ([place] Comment on above: Performed By: #### A DIFF, TROPHS, GFR, BMP, MDW, CBC, PBNP, ANEU #### [address] [address] Lymphocytes/100 WBC (Bld) 20.2 % Normal 10.0-50.0 [facility] ([place] Comment on above: Performed By: #### A DIFF, TROPHS, GFR, BMP, MDW, CBC, PBNP, ANEU #### [address] [address] Monocyte, Absolute 1.7 10 3/mcL High 0.2-1.0 [facility] ([place] Comment on above: Performed By: #### A DIFF, TROPHS, GFR, BMP, MDW, CBC, PBNP, ANEU #### [address] [address] Monocytes/100 WBC (Bld) 12.2 % Normal 1.7-13.0 [facility] ([place] Comment on above: Performed By: #### A DIFF, TROPHS, GFR, BMP, MDW, CBC, PBNP, ANEU #### [address] [address] Neutrophils/100 WBC (Bld) 65.8 % Normal 37.0-80.0 [facility] ([place] Comment on above: Performed By: #### A DIFF, TROPHS, GFR, BMP, MDW, CBC, PBNP, ANEU #### [address] [address] .GFRon 01-30-2024 GFR 38 ml/min/1.73sqm Normal [facility] ([place] Comment on above: Result Comment: GFR Population [...] GFR, BMP, MDW, CBC, PBNP, ANEU #### [address] [address] GFR Non- 31 ml/min/1.73sqm Normal [facility] ([place] Comment on above: Result Comment: GFR Population [...] GFR, BMP, MDW, CBC, PBNP, ANEU #### [place] [address] .MDWon 01-30-2024 Monocyte Distribution Width 21.35 High 0.00-20.00 [facility] ([place] Comment on above: Result Comment: For adults in ED, MDW>20.0 may be associated with a higher risk of sepsis during the first 12hrs of hospital admission Performed By: #### A DIFF, TROPHS, GFR, BMP, MDW, CBC, PBNP, ANEU #### [place] [address] .NEUABSon 01-30-2024 Neutrophil, Absolute 9.2 10 3/mcL High 2.9-6.2 [facility] ([place] Comment on above: Performed By: #### A DIFF, TROPHS, GFR, BMP, MDW, CBC, PBNP, ANEU #### [place] [address] .Urinalysis Microscopic (AO) on 01-30-2024 UA RBC None Seen Normal None Seen [facility] ([place] Comment on above: Performed By: #### A DIFF, TROPHS, GFR, BMP, MDW, CBC, PBNP, ANEU #### [place] [address] UA Squam Epithelial None Seen Normal None Seen [facility] ([place]) Comment on above: Performed By: #### A DIFF, TROPHS, GFR, BMP, MDW, CBC, PBNP, ANEU #### [place] [id number] UA WBC 0-5 Abnormal None Seen [facility] ([place] Comment on above: Performed By: #### A DIFF, TROPHS, GFR, BMP, MDW, CBC, PBNP, ANEU #### [address] [address] BGon 01-30-2024 Base excess Calc (Bld) [Moles/Vol] 4.3 mmol/L Normal [facility] ([place] Comment on above: Performed By: #### A DIFF, TROPHS, GFR, BMP, MDW, CBC, PBNP, ANEU #### [address] [address] CO2 [Moles/Vol] 29.8 mmol/L Normal 22.0-30.0 [facility] ([place] Comment on above: Performed By: #### A DIFF, TROPHS, GFR, BMP, MDW, CBC, PBNP, ANEU #### [address] [address] HCO3 (Bld) [Moles/Vol] 28.5 mmol/L Normal 21.0-29.0 [facility] ([place] Comment on above: Performed By: #### A DIFF, TROPHS, GFR, BMP, MDW, CBC, PBNP, ANEU #### [address] [address] Oxygen (Bld) [Partial pressure] 51.0 mm[Hg] Low 74.0-108.0 [facility] ([place] Comment on above: Performed By: #### A DIFF, TROPHS, GFR, BMP, MDW, CBC, PBNP, ANEU #### [address] [address] Oxygen saturation in Blood 88.8 % Low 92.0-96.0 [facility] ([place] Comment on above: Performed By: #### A DIFF, TROPHS, GFR, BMP, MDW, CBC, PBNP, ANEU #### [address] [address] pCO2 41.0 mmHg Normal 32.0-46.0 [facility] ([place] Comment on above: Performed By: #### A DIFF, TROPHS, GFR, BMP, MDW, CBC, PBNP, ANEU #### [address] [place] [address] pH (Bld) 7.460 [pH] Normal 7.380-7.460 [facility] ([place]) Comment on above: Performed By: #### A DIFF, TROPHS, GFR, BMP, MDW, CBC, PBNP, ANEU #### [address] [address] BMPon 01-30-2024 BUN/Creatinine Ratio 8 ratio Normal 7-27 [facility] ([place]) Comment on above: Performed By: #### A DIFF, TROPHS, GFR, BMP, MDW, CBC, PBNP, ANEU #### [address] [address] Calcium [Mass/Vol] 8.8 mg/dL Normal 8.4-10.2 [facility] ([place] Comment on above: Performed By: #### A DIFF, TROPHS, GFR, BMP, MDW, CBC, PBNP, ANEU #### [address] [address] Chloride [Moles/Vol] 97 mmol/L Low 98-107 [facility] ([place]) Comment on above: Performed By: #### A DIFF, TROPHS, GFR, BMP, MDW, CBC, PBNP, ANEU #### [address] [address] CO2 [Moles/Vol] 31 mmol/L High 22-29 [facility] ([place] Comment on above: Performed By: #### A DIFF, TROPHS, GFR, BMP, MDW, CBC, PBNP, ANEU #### [address] [address] Creatinine [Mass/Vol] 2.22 mg/dL High 0.70-1.30 [facility] ([place]) Comment on above: Result Comment: Test ing performed on Siemens Dimension EXL analyzer using a modified kinetic Ciera technique. Performed By: #### A DIFF, TROPHS, GFR, BMP, MDW, CBC, PBNP, ANEU #### [address] [address] Electrolyte Balance 6.0 mEq/L Normal 4.0-15.0 [facility] ([place]) Comment on above: Performed By: #### A DIFF, TROPHS, GFR, BMP, MDW, CBC, PBNP, ANEU #### [address] [address] Glucose [Mass/Vol] 112 mg/dL High 70-105 [facility] ([place]) Comment on above: Performed By: #### A DIFF, TROPHS, GFR, BMP, MDW, CBC, PBNP, ANEU #### [address] [address] Potassium [Moles/Vol] 3.7 mmol/L Normal 3.5-5.1 [facility] ([place]) Comment on above: Performed By: #### A DIFF, TROPHS, GFR, BMP, MDW, CBC, PBNP, ANEU #### [address] [address] Sodium [Moles/Vol] 134 mmol/L Low 136-145 [facility] ([place] Comment on above: Performed By: #### A DIFF, TROPHS, GFR, BMP, MDW, CBC, PBNP, ANEU #### [address] [address] Urea nitrogen [Mass/Vol] 17 mg/dL Normal 7-18 [facility]) Comment on above: Performed By: #### A DIFF, TROPHS, GFR, BMP, MDW, CBC, PBNP, ANEU #### [address] [address] CBCon 01-30-2024 Erythrocyte distribution width (RBC) [Ratio] 16.5 % High 11.5-14.5 [facility] ([place] Comment on above: Performed By: #### A DIFF, TROPHS, GFR, BMP, MDW, CBC, PBNP, ANEU #### [address] [address] Hematocrit (Bld) [Volume fraction] 45.3 % Normal 42.0-52.0 [facility] ([place] Comment on above: Performed By: #### A DIFF, TROPHS, GFR, BMP, MDW, CBC, PBNP, ANEU #### [address] [address] Hgb 14.9 G/dL Normal 14.0-18.0 [facility] ([place] Comment on above: Performed By: #### A DIFF, TROPHS, GFR, BMP, MDW, CBC, PBNP, ANEU #### [address] [address] MCH (RBC) [Entitic mass] 26.6 pg Low 27.0-31.2 [facility] ([place] Comment on above: Performed By: #### A DIFF, TROPHS, GFR, BMP, MDW, CBC, PBNP, ANEU #### [address] [address] MCHC 33.0 G/dL Normal 31.8-35.4 [facility] ([place] Comment on above: Performed By: #### A DIFF, TROPHS, GFR, BMP, MDW, CBC, PBNP, ANEU #### [address] [address] MCV (RBC) [Entitic vol] 80.7 fL Normal 80.0-94.0 [facility] ([place] Comment on above: Performed By: #### A DIFF, TROPHS, GFR, BMP, MDW, CBC, PBNP, ANEU #### [address] [address] Platelet 263 10 3/mcL Normal 130-400 [facility] ([place] Comment on above: Performed By: #### A DIFF, TROPHS, GFR, BMP, MDW, CBC, PBNP, ANEU #### [address] [address] Platelet mean volume (Bld) [Entitic vol] 6.8 fL Low 7.4-10.4 [facility] ([place]) Comment on above: Performed By: #### A DIFF, TROPHS, GFR, BMP, MDW, CBC, PBNP, ANEU #### [address] [address] RBC 5.61 10 6/mcL Normal 4.04-6.13 [facility] ([place]) Comment on above: Performed By: #### A DIFF, TROPHS, GFR, BMP, MDW, CBC, PBNP, ANEU #### [facility] [address] [place], [place] [address] WBC 14.0 10 3/mcL High 4.6-10.8 [facility] ([place]) Comment on above: Performed By: #### A DIFF, TROPHS, GFR, BMP, MDW, CBC, PBNP, ANEU #### [place] [id number] [place], [place] [address] CT HEAD OR BRAIN W/O CONTRAS Ton [...] by: Keagan Morfin MD Preliminary Report By: eKagan Morfin MD Electronically signed By Keagan Morfin MD Dictated Date: 01/30/2024 10:06:01 PM Prelim Date: 01/30/2024 10:16:46 PM Sign Date: 01/30/2024 10:16:46 PM Ordering Provider: SAMY Kate [facility] ([place]) LABORATORYOrdered By: Jil Morales on 01-30-2024 Appearance [...] a homogeneous sandwich chemiluminescent immunoassay based on [employer] technology. Lactate [Moles/Vol] 1.0 mmol/L Normal 0.4 [...] ng/L Male: 0-76 ng/L Testing performed on [employer] using a homogeneous sandwich chemiluminescent immunoassay based on [employer] technology. Urea nitrogen [Mass/Vol] 17 mg/dL Normal [...] Lactic Acid Lvl 1.0 mmol/L Normal 0.4-2.0 [facility] ([place]) Comment on above: Performed By: #### L AC #### [address] [address] No Panel Informationon 01-29 Microscopic examination of blood, culture Culture has been received in lab and is no growth to date. Routine cultures are held for 5 days. [facility] PBNPon 01-30-2024 Natriuretic peptide B (Bld) [Mass/Vol] 1822 pg/mL High 0-125 [facility] ([place]) Comment on above: Result Comment: NT-p roBNP results of less than 300 pg/mL effectively rules out acute congestive heart failure with 99% negative predictive value. Performed By: #### A DIFF, TROPHS, GFR, BMP, MDW, CBC, PBNP, ANEU #### [address] [address] TROPHSon 01-30-2024 High Sensitivity Troponin I 7 ng/L Normal 0-76 [facility] ([place]) Comment on above: Result Comment: High Sensitive Troponin I Reference Ranges: Female: 0-51 ng/L Male: 0-76 ng/L Testing performed on [employer] using a homogeneous sandwich chemiluminescent immunoassay based on [employer] technology. Performed By: #### A DIFF, TROPHS, GFR, BMP, MDW, CBC, PBNP, ANEU #### [id number] [place], [place] [address] High Sensitivity Troponin I 8 ng/L Normal 0-76 [facility] ([place]) Comment on above: Result Comment: High Sensitive Troponin I Reference Ranges: Female: 0-51 ng/L Male: 0-76 ng/L Testing performed on [employer] using a homogeneous sandwich chemiluminescent immunoassay based on [employer] technology. Performed By: #### A DIFF, TROPHS, GFR, BMP, MDW, CBC, PBNP, ANEU #### [address] [address] UAon 01-30-2024 Color (U) Yellow Normal [facility] ([place] Comment on above: Performed By: #### A DIFF, TROPHS, GFR, BMP, MDW, CBC, PBNP, ANEU #### [address] [address] Glucose (U) [Mass/Vol] Negative Normal Negative [facility] ([place] Comment on above: Performed By: #### A DIFF, TROPHS, GFR, BMP, MDW, CBC, PBNP, ANEU #### [address] [address] Ketones Ql (U) Negative Normal Negative [facility] ([place] Comment on above: Performed By: #### A DIFF, TROPHS, GFR, BMP, MDW, CBC, PBNP, ANEU #### [address] [address] UA Appear Clear Normal Clear [facility] ([place] Comment on above: Performed By: #### A DIFF, TROPHS, GFR, BMP, MDW, CBC, PBNP, ANEU #### [address] [address] UA Bili Small Abnormal Negative [facility] ([place] Comment on above: Performed By: #### A DIFF, TROPHS, GFR, BMP, MDW, CBC, PBNP, ANEU #### [address] [address] UA Blood Trace Abnormal Negative [facility] ([place] Comment on above: Performed By: #### A DIFF, TROPHS, GFR, BMP, MDW, CBC, PBNP, ANEU #### [address] [address] UA Leuk Est Trace Abnormal Negative [facility] ([place] Comment on above: Performed By: #### A DIFF, TROPHS, GFR, BMP, MDW, CBC, PBNP, ANEU #### [address] [address] UA Nitrite Negative Normal Negative [facility] ([place] Comment on above: Performed By: #### A DIFF, TROPHS, GFR, BMP, MDW, CBC, PBNP, ANEU #### [address] [address] UA pH 6.0 Normal 5.0 - 8.0 [facility] ([place] Comment on above: Performed By: #### A DIFF, TROPHS, GFR, BMP, MDW, CBC, PBNP, ANEU #### [address] [address] UA Protein 100 mg/dL Abnormal Negative [facility] ([place] Comment on above: Performed By: #### A DIFF, TROPHS, GFR, BMP, MDW, CBC, PBNP, ANEU #### [address] [address] UA Spec Grav 1.025 Normal 1.015-1.025 [facility] ([place]) Comment on above: Performed By: #### A DIFF, TROPHS, GFR, BMP, MDW, CBC, PBNP, ANEU #### [address] [address] UA Specimen Type Void Normal [facility] ([place] Comment on above: Performed By: #### A DIFF, TROPHS, GFR, BMP, MDW, CBC, PBNP, ANEU #### [address] [address] UA Urobilinogen 1.0 E.U./dL Normal 0.2-1.0 [facility] ([place] Comment on above: Performed By: #### A DIFF, TROPHS, GFR, BMP, MDW, CBC, PBNP, ANEU #### [address] [address] XR CHEST 1 VIEWon 01-30-2024 XR CHEST [...] the resident's findings and interpretation. Interpreted by: Tarce Clark Preliminary Report By: Kike Acevedo Electronically signed By Trace Clark Dictated Date: 01/30/2024 9:24:47 PM Prelim Date: 01/30/2024 9:26:56 PM Sign Date: 01/30/2024 9:28:12 PM Ordering Provider: SAMY JONES Normal [facility] ([place]) .GFRon 08-08-2023 GFR Non- 105 ml/min/1.73sqm Normal [facility] ([place] Comment on above: Result Comment: GFR Population [...] GFR, BMP, MDW, CBC, PBNP, ANEU #### [address] [address] GFR 127 ml/min/1.73sqm Normal [facility] ([place] Comment on above: Result Comment: GFR Population [...] GFR, BMP, MDW, CBC, PBNP, ANEU #### [address] [address] A1Con 08-08-2023 HbA1c (Bld) [Mass fraction] 6.7 % High 4.3-6.4 [facility] ([place] Comment on above: Performed By: #### A DIFF, TROPHS, GFR, BMP, MDW, CBC, PBNP, ANEU #### [address] [address] CMPon 08-08-2023 Albumin Level 3.4 G/dL Low 3.5-5.0 [facility] ([place] Comment on above: Performed By: #### A DIFF, TROPHS, GFR, BMP, MDW, CBC, PBNP, ANEU #### [address] [address] Albumin/Globulin [Mass ratio] 0.9 {ratio} Low 1.1-2.5 [facility] ([place] Comment on above: Performed By: #### A DIFF, TROPHS, GFR, BMP, MDW, CBC, PBNP, ANEU #### [address] [address] ALP [Catalytic activity/Vol] 87 U/L Normal 40-135 [facility] ([place] Comment on above: Performed By: #### A DIFF, TROPHS, GFR, BMP, MDW, CBC, PBNP, ANEU #### [address] [address] ALT [Catalytic activity/Vol] 19 U/L Normal 16-63 [facility] ([place] Comment on above: Performed By: #### A DIFF, TROPHS, GFR, BMP, MDW, CBC, PBNP, ANEU #### [address] [address] AST [Catalytic activity/Vol] 15 U/L Normal 10-40 [facility] ([place] Comment on above: Performed By: #### A DIFF, TROPHS, GFR, BMP, MDW, CBC, PBNP, ANEU #### [address] [address] Bili Total 0.5 mg/dL Normal 0.2-1.0 [facility] ([place] Comment on above: Result Comment: Use of this assay is not recommended for patients undergoing treatment with eltrombopag due to the potential for falsely elevated results. Performed By: #### A DIFF, TROPHS, GFR, BMP, MDW, CBC, PBNP, ANEU #### [address] [address] BUN/Creatinine Ratio 14 ratio Normal 7-27 [facility] ([place] Comment on above: Performed By: #### A DIFF, TROPHS, GFR, BMP, MDW, CBC, PBNP, ANEU #### [address] [address] Calcium [Mass/Vol] 8.7 mg/dL Normal 8.4-10.2 [facility] ([place] Comment on above: Performed By: #### A DIFF, TROPHS, GFR, BMP, MDW, CBC, PBNP, ANEU #### [address] [address] Chloride [Moles/Vol] 100 mmol/L Normal 98-107 [facility] ([place] Comment on above: Performed By: #### A DIFF, TROPHS, GFR, BMP, MDW, CBC, PBNP, ANEU #### [address] [address] CO2 [Moles/Vol] 34 mmol/L High 22-29 [facility] ([place] Comment on above: Performed By: #### A DIFF, TROPHS, GFR, BMP, MDW, CBC, PBNP, ANEU #### [address] [address] Creatinine [Mass/Vol] 0.78 mg/dL Normal 0.70-1.30 [facility] ([place]) Comment on above: Performed By: #### A DIFF, TROPHS, GFR, BMP, MDW, CBC, PBNP, ANEU #### [address] [address] Electrolyte Balance 6.0 mEq/L Normal 4.0-15.0 [facility] ([place] Comment on above: Performed By: #### A DIFF, TROPHS, GFR, BMP, MDW, CBC, PBNP, ANEU #### [address] [address] Globulin 3.8 G/dL Normal [facility] ([place] Comment on above: Performed By: #### A DIFF, TROPHS, GFR, BMP, MDW, CBC, PBNP, ANEU #### [address] [address] Glucose [Mass/Vol] 121 mg/dL High 70-105 [facility] ([place] Comment on above: Performed By: #### A DIFF, TROPHS, GFR, BMP, MDW, CBC, PBNP, ANEU #### [address] [address] Potassium [Moles/Vol] 4.2 mmol/L Normal 3.5-5.1 [facility] ([place]) Comment on above: Performed By: #### A DIFF, TROPHS, GFR, BMP, MDW, CBC, PBNP, ANEU #### [address] [address] Sodium [Moles/Vol] 140 mmol/L Normal 136-145 [facility] ([place] Comment on above: Performed By: #### A DIFF, TROPHS, GFR, BMP, MDW, CBC, PBNP, ANEU #### [address] [address] Total Protein 7.2 G/dL Normal 6.4-8.2 [facility] ([place] Comment on above: Performed By: #### A DIFF, TROPHS, GFR, BMP, MDW, CBC, PBNP, ANEU #### [address] [address] Urea nitrogen [Mass/Vol] 11 mg/dL Normal 7-18 [facility] ([place] Comment on above: Performed By: #### A DIFF, TROPHS, GFR, BMP, MDW, CBC, PBNP, ANEU #### [address] [address] LABORATORYOrdered By: Jr Fontaine on 08-08-2023 Albumin DL <= 20 mg/L (U) [Mass/Vol] 378 mcg/dL Invalid Interpretation Code AO ADM SS Albumin/Creatinine DL <= 20 mg/L (U) [Mass ratio] 12 mcg/mg Normal 0 - 30 mcg/mg AO ADM SS Creatinine (U) [Mass/Vol] 30.5 mg/dL Low 39.0 - 259.0 mg/dL AO ADM SS LIPIDon 08-08-2023 Cholesterol [Mass/Vol] 156 mg/dL Normal 0-200 [facility] ([place] Comment on above: Result Comment: Chol esterol Reference Interval: Less than 200 Desirable 200-239 Borderline high risk 240 and above High risk Performed By: #### A DIFF, TROPHS, GFR, BMP, MDW, CBC, PBNP, ANEU #### [address] [address] Cholesterol in HDL [Mass/Vol] 28 mg/dL Low 40-60 [facility] ([place] Comment on above: Performed By: #### A DIFF, TROPHS, GFR, BMP, MDW, CBC, PBNP, ANEU #### [address] [address] Cholesterol in LDL [Mass/Vol] 93 mg/dL Normal 0-130 [facility] ([place] Comment on above: Performed By: #### A DIFF, TROPHS, GFR, BMP, MDW, CBC, PBNP, ANEU #### [address] [address] Triglyceride [Mass/Vol] 175 mg/dL High 0-150 A [facility] ([place]) Comment on above: Result Comment: Trig lyceride Reference Interval: Less than 150 Normal 150-199 Borderline high risk 200-499 High risk 500 or higher Very high risk Performed By: #### A DIFF, TROPHS, GFR, BMP, MDW, CBC, PBNP, ANEU #### [address] [address] MALBRon 08-08-2023 U Creatinine 30.5 mg/dL Low 39.0-259.0 [facility] ([place] Comment on above: Performed By: #### A DIFF, TROPHS, GFR, BMP, MDW, CBC, PBNP, ANEU #### [address] [address] U Microalb 378 mcg/dL Normal [facility] ([place] Comment on above: Performed By: #### A DIFF, TROPHS, GFR, BMP, MDW, CBC, PBNP, ANEU #### [address] [address] U Ratio Alb/Cre 12 mcg/mg Normal 0-30 [facility] ([place] Comment on above: Performed By: #### A DIFF, TROPHS, GFR, BMP, MDW, CBC, PBNP, ANEU #### [address] [address] CVFLURVon 06-13-2023 FLU A PCR Negative Normal Negative [facility] ([place] Comment on above: Performed By: #### A DIFF, TROPHS, GFR, BMP, MDW, CBC, PBNP, ANEU #### [address] [address] FLU B PCR Negative Normal Negative [facility] ([place] Comment on above: Performed By: #### A DIFF, TROPHS, GFR, BMP, MDW, CBC, PBNP, ANEU #### [address] [address] RSV PCR Negative Normal Negative [facility] ([place] Comment on above: Performed By: #### A DIFF, TROPHS, GFR, BMP, MDW, CBC, PBNP, ANEU #### [id number] [place], [place] [address] SARS-CoV-2 (COVID-19) RNA ROSE+probe Ql (Unsp spec) Negative Normal Negative [facility] ([place] Comment on above: Result Comment: This test [...] GFR, BMP, MDW, CBC, PBNP, ANEU #### [id number] [place], [place] [address] LABORATORYOrdered By: Giovana Fischer on 06-13-2023 FLUAV [...] No definite focal consolidation. Interpreted by: Trace Clark Preliminary Report By: Trace Clark Electronically signed By Trace Clark Dictated Date: 06/13/2023 12:39:17 AM Prelim Date: 06/13/2023 12:39:50 AM Sign Date: 06/13/2023 12:39:50 AM Ordering Provider: DEMI Kate [facility] ([place]) .Auto Diffon 06-09-2023 Basophil, Absolute 0.1 10 3/mcL Normal 0.0-0.3 [facility] ([place] Comment on above: Performed By: #### A DIFF, TROPHS, GFR, BMP, MDW, CBC, PBNP, ANEU #### [address] [address] Basophils/100 WBC (Bld) 0.8 % Normal 0.0-2.5 A [facility] ([place] Comment on above: Performed By: #### A DIFF, TROPHS, GFR, BMP, MDW, CBC, PBNP, ANEU #### [address] [address] Eosinophil, Absolute 0.1 10 3/mcL Normal 0.0-0.7 [facility] ([place] Comment on above: Performed By: #### A DIFF, TROPHS, GFR, BMP, MDW, CBC, PBNP, ANEU #### [address] [address] Eosinophils/100 WBC (Bld) 2.0 % Normal 0.0-6.0 [facility] ([place] Comment on above: Performed By: #### A DIFF, TROPHS, GFR, BMP, MDW, CBC, PBNP, ANEU #### [address] [address] Lymphocyte, Absolute 1.0 10 3/mcL Normal 0.9-4.3 [facility] ([place] Comment on above: Performed By: #### A DIFF, TROPHS, GFR, BMP, MDW, CBC, PBNP, ANEU #### [address] [address] Lymphocytes/100 WBC (Bld) 15.5 % Low 20.0-40.0 [facility] [place] Comment on above: Performed By: #### A DIFF, TROPHS, GFR, BMP, MDW, CBC, PBNP, ANEU #### [address] [address] Monocyte, Absolute 0.7 10 3/mcL Normal 0.1-1.4 [facility] ([place] Comment on above: Performed By: #### A DIFF, TROPHS, GFR, BMP, MDW, CBC, PBNP, ANEU #### [address] [address] Monocytes/100 WBC (Bld) 11.1 % Normal 2.0-13.0 A [facility] ([place] Comment on above: Performed By: #### A DIFF, TROPHS, GFR, BMP, MDW, CBC, PBNP, ANEU #### [address] [address] Neutrophils/100 WBC (Bld) 70.6 % Normal 50.0-75.0 [facility] ([place] Comment on above: Performed By: #### A DIFF, TROPHS, GFR, BMP, MDW, CBC, PBNP, ANEU #### [address] [address] .GFRon 06-09-2023 GFR Non- >60 Normal [facility] ([place] Comment on above: Result Comment: GFR Population [...] GFR, BMP, MDW, CBC, PBNP, ANEU #### [address] [address] GFR >60 Normal [facility] ([place] Comment on above: Result Comment: GFR Population [...] GFR, BMP, MDW, CBC, PBNP, ANEU #### [address] [address] .NEUABSon 06-09-2023 Neutrophil, Absolute 4.7 10 3/mcL Normal 2.3-8.1 [facility] ([place] Comment on above: Performed By: #### A DIFF, TROPHS, GFR, BMP, MDW, CBC, PBNP, ANEU #### [address] [address] BMPon 06-09-2023 BUN/Creatinine Ratio 11.8 ratio Normal 10.0-22.0 [facility] ([place] Comment on above: Performed By: #### A DIFF, TROPHS, GFR, BMP, MDW, CBC, PBNP, ANEU #### [address] [address] Calcium [Mass/Vol] 9.0 mg/dL Normal 8.7-10.4 [facility] ([place] Comment on above: Performed By: #### A DIFF, TROPHS, GFR, BMP, MDW, CBC, PBNP, ANEU #### [address] [address] Chloride [Moles/Vol] 102 mmol/L Normal 98-110 [facility] ([place] Comment on above: Performed By: #### A DIFF, TROPHS, GFR, BMP, MDW, CBC, PBNP, ANEU #### [address] [address] CO2 [Moles/Vol] 35 mmol/L High 22-32 [facility] ([place] Comment on above: Performed By: #### A DIFF, TROPHS, GFR, BMP, MDW, CBC, PBNP, ANEU #### [address] [address] Creatinine [Mass/Vol] 0.85 mg/dL Normal 0.60-1.40 [facility] ([place] Comment on above: Performed By: #### A DIFF, TROPHS, GFR, BMP, MDW, CBC, PBNP, ANEU #### [address] [address] Electrolyte Balance 0.0 mEq/L Low 4.0-15.0 [facility] ([place] Comment on above: Performed By: #### A DIFF, TROPHS, GFR, BMP, MDW, CBC, PBNP, ANEU #### [address] [address] Glucose [Mass/Vol] 146 mg/dL High 70-110 [facility] ([place] Comment on above: Performed By: #### A DIFF, TROPHS, GFR, BMP, MDW, CBC, PBNP, ANEU #### [address] [address] Potassium [Moles/Vol] 4.8 mmol/L Normal 3.5-5.0 [facility] ([place]) Comment on above: Performed By: #### A DIFF, TROPHS, GFR, BMP, MDW, CBC, PBNP, ANEU #### [address] [address] Sodium [Moles/Vol] 137 mmol/L Normal 136-145 [facility] ([place] Comment on above: Performed By: #### A DIFF, TROPHS, GFR, BMP, MDW, CBC, PBNP, ANEU #### [address] [address] Urea nitrogen [Mass/Vol] 10.0 mg/dL Normal 8.0-22.0 [facility] ([place] Comment on above: Result Comment: Spec imen hemolyzed. Results may be falsely elevated. Performed By: #### A DIFF, TROPHS, GFR, BMP, MDW, CBC, PBNP, ANEU #### [address] [address] CBCon 06-09-2023 Erythrocyte distribution width (RBC) [Ratio] 13.3 % Normal 11.5-15.5 [facility] ([place] Comment on above: Performed By: #### A DIFF, TROPHS, GFR, BMP, MDW, CBC, PBNP, ANEU #### [address] [address] Hematocrit (Bld) [Volume fraction] 45.9 % Normal 40.0-52.0 [facility] ([place] Comment on above: Performed By: #### A DIFF, TROPHS, GFR, BMP, MDW, CBC, PBNP, ANEU #### [address] [address] Hgb 15.6 G/dL Normal 13.0-17.5 [facility] ([place] Comment on above: Performed By: #### A DIFF, TROPHS, GFR, BMP, MDW, CBC, PBNP, ANEU #### [address] [address] MCH (RBC) [Entitic mass] 29.0 pg Normal 27.0-33.0 [facility] ([place] Comment on above: Performed By: #### A DIFF, TROPHS, GFR, BMP, MDW, CBC, PBNP, ANEU #### [address] [address] MCHC 33.9 G/dL Normal 32.0-36.0 [facility] ([place] Comment on above: Performed By: #### A DIFF, TROPHS, GFR, BMP, MDW, CBC, PBNP, ANEU #### [address] [address] MCV (RBC) [Entitic vol] 85.5 fL Normal 81.0-100.0 [facility] ([place]) Comment on above: Performed By: #### A DIFF, TROPHS, GFR, BMP, MDW, CBC, PBNP, ANEU #### [address] [address] Platelet 174 10 3/mcL Normal 150-450 [facility] ([place] Comment on above: Performed By: #### A DIFF, TROPHS, GFR, BMP, MDW, CBC, PBNP, ANEU #### [address] [address] Platelet mean volume (Bld) [Entitic vol] 7.5 fL Normal 6.4-10.5 [facility] ([place] Comment on above: Performed By: #### A DIFF, TROPHS, GFR, BMP, MDW, CBC, PBNP, ANEU #### [address] [address] RBC 5.37 10 6/mcL Normal 4.50-6.00 [facility] ([place]) Comment on above: Performed By: #### A DIFF, TROPHS, GFR, BMP, MDW, CBC, PBNP, ANEU #### [address] [address] WBC 6.6 10 3/mcL Normal 4.5-10.8 [facility] ([place] Comment on above: Performed By: #### A DIFF, TROPHS, GFR, BMP, MDW, CBC, PBNP, ANEU #### [address] [address] LABORATORYOrdered By: Adenike Swain on 06-09-2023 Blood Glucose Testing Reason Routine (06/09/23 4:18 PM) [facility] Glucose [Mass/Vol] 114 mg/dL High 70 - 110 mg/dL [facility] LABORATORYOrdered By: Cris Jang on 06-09-2023 Blood Glucose Testing Reason Routine (06/09/23 7:51 AM) [facility] Glucose [Mass/Vol] 142 mg/dL High 70 - 110 mg/dL [facility] LABORATORYOrdered By: SYSTEM SYSTEM on 06-09-2023 [...] 8.0 - 22.0 mg/dL AH ADM SS Comment on above: Result Comment: Spec imen hemolyzed. Results may be falsely elevated. Urea nitrogen/Creatinine [Mass ratio] 11.8 ratio Normal 10.0 - 22.0 ratio AH ADM SS WBC (Bld) [#/Vol] 6.6 103/mcL Normal 4.5 - 10.8 10^3/mcL AH Workflow SS MGon 06-09-2023 Magnesium [Mass/Vol] 2.1 mg/dL Normal 1.6-2.4 [facility] ([place]) Comment on above: Performed By: #### A DIFF, TROPHS, GFR, BMP, MDW, CBC, PBNP, ANEU #### [address] [address] .Auto Diffon 06-08-2023 Basophil, Absolute 0.1 10 3/mcL Normal 0.0-0.3 [facility] ([place] Comment on above: Performed By: #### A DIFF, TROPHS, GFR, BMP, MDW, CBC, PBNP, ANEU #### [address] [address] Basophils/100 WBC (Bld) 0.7 % Normal 0.0-2.5 A [facility] ([place] Comment on above: Performed By: #### A DIFF, TROPHS, GFR, BMP, MDW, CBC, PBNP, ANEU #### [address] [address] Eosinophil, Absolute 0.1 10 3/mcL Normal 0.0-0.7 [facility] ([place] Comment on above: Performed By: #### A DIFF, TROPHS, GFR, BMP, MDW, CBC, PBNP, ANEU #### [address] [address] Eosinophils/100 WBC (Bld) 1.9 % Normal 0.0-6.0 [facility] ([place] Comment on above: Performed By: #### A DIFF, TROPHS, GFR, BMP, MDW, CBC, PBNP, ANEU #### [address] [address] Lymphocyte, Absolute 1.3 10 3/mcL Normal 0.9-4.3 [facility] ([place] Comment on above: Performed By: #### A DIFF, TROPHS, GFR, BMP, MDW, CBC, PBNP, ANEU #### [address] [address] Lymphocytes/100 WBC (Bld) 16.1 % Low 20.0-40.0 [facility] ([place] Comment on above: Performed By: #### A DIFF, TROPHS, GFR, BMP, MDW, CBC, PBNP, ANEU #### [address] [address] Monocyte, Absolute 0.8 10 3/mcL Normal 0.1-1.4 [facility] ([place] Comment on above: Performed By: #### A DIFF, TROPHS, GFR, BMP, MDW, CBC, PBNP, ANEU #### [address] [address] Monocytes/100 WBC (Bld) 9.9 % Normal 2.0-13.0 [facility] ([place]) Comment on above: Performed By: #### A DIFF, TROPHS, GFR, BMP, MDW, CBC, PBNP, ANEU #### [address] [address] Neutrophils/100 WBC (Bld) 71.4 % Normal 50.0-75.0 [facility] ([place] Comment on above: Performed By: #### A DIFF, TROPHS, GFR, BMP, MDW, CBC, PBNP, ANEU #### [address] [address] .GFRon 06-08-2023 GFR >60 Normal [facility] ([place] Comment on above: Result Comment: GFR Population [...] GFR, BMP, MDW, CBC, PBNP, ANEU #### [address] [address] GFR Non- >60 Normal [facility] ([place] Comment on above: Result Comment: GFR Population [...] GFR, BMP, MDW, CBC, PBNP, ANEU #### [address] [address] .NEUABSon 06-08-2023 Neutrophil, Absolute 5.7 10 3/mcL Normal 2.3-8.1 [facility] ([place] Comment on above: Performed By: #### A DIFF, TROPHS, GFR, BMP, MDW, CBC, PBNP, ANEU #### [address] [address] BMPon 06-08-2023 BUN/Creatinine Ratio 10.7 ratio Normal 10.0-22.0 [facility] ([place] Comment on above: Performed By: #### A DIFF, TROPHS, GFR, BMP, MDW, CBC, PBNP, ANEU #### [address] [address] Calcium [Mass/Vol] 8.9 mg/dL Normal 8.7-10.4 [facility] ([place] Comment on above: Performed By: #### A DIFF, TROPHS, GFR, BMP, MDW, CBC, PBNP, ANEU #### [address] [address] Chloride [Moles/Vol] 100 mmol/L Normal 98-110 [facility] ([place] Comment on above: Performed By: #### A DIFF, TROPHS, GFR, BMP, MDW, CBC, PBNP, ANEU #### [address] [address] CO2 [Moles/Vol] 36 mmol/L High 22-32 [facility] ([place] Comment on above: Performed By: #### A DIFF, TROPHS, GFR, BMP, MDW, CBC, PBNP, ANEU #### [address] [address] Creatinine [Mass/Vol] 0.75 mg/dL Normal 0.60-1.40 [facility] ([place] Comment on above: Performed By: #### A DIFF, TROPHS, GFR, BMP, MDW, CBC, PBNP, ANEU #### [address] [address] Electrolyte Balance 1.0 mEq/L Low 4.0-15.0 [facility] ([place] Comment on above: Performed By: #### A DIFF, TROPHS, GFR, BMP, MDW, CBC, PBNP, ANEU #### [address] [address] Glucose [Mass/Vol] 160 mg/dL High 70-110 [facility] ([place] Comment on above: Performed By: #### A DIFF, TROPHS, GFR, BMP, MDW, CBC, PBNP, ANEU #### [address] [address] Potassium [Moles/Vol] 3.4 mmol/L Low 3.5-5.0 [facility] ([place]) Comment on above: Result Comment: Spec imen slightly hemolyzed. Performed By: #### A DIFF, TROPHS, GFR, BMP, MDW, CBC, PBNP, ANEU #### [address] [address] Sodium [Moles/Vol] 137 mmol/L Normal 136-145 [facility] ([place] Comment on above: Performed By: #### A DIFF, TROPHS, GFR, BMP, MDW, CBC, PBNP, ANEU #### [address] [address] Urea nitrogen [Mass/Vol] 8.0 mg/dL Normal 8.0-22.0 [facility] ([place] Comment on above: Performed By: #### A DIFF, TROPHS, GFR, BMP, MDW, CBC, PBNP, ANEU #### [address] [address] CBCon 06-08-2023 Erythrocyte distribution width (RBC) [Ratio] 13.1 % Normal 11.5-15.5 [facility] ([place] Comment on above: Performed By: #### A DIFF, TROPHS, GFR, BMP, MDW, CBC, PBNP, ANEU #### [address] [address] Hematocrit (Bld) [Volume fraction] 45.7 % Normal 40.0-52.0 [facility] ([place] Comment on above: Performed By: #### A DIFF, TROPHS, GFR, BMP, MDW, CBC, PBNP, ANEU #### [address] [address] Hgb 15.6 G/dL Normal 13.0-17.5 [facility] ([place]) Comment on above: Performed By: #### A DIFF, TROPHS, GFR, BMP, MDW, CBC, PBNP, ANEU #### [address] [address] MCH (RBC) [Entitic mass] 29.1 pg Normal 27.0-33.0 [facility] ([place]) Comment on above: Performed By: #### A DIFF, TROPHS, GFR, BMP, MDW, CBC, PBNP, ANEU #### [address] [address] MCHC 34.3 G/dL Normal 32.0-36.0 [facility] ([place] Comment on above: Performed By: #### A DIFF, TROPHS, GFR, BMP, MDW, CBC, PBNP, ANEU #### [address] [address] MCV (RBC) [Entitic vol] 85.0 fL Normal 81.0-100.0 [facility] ([place]) Comment on above: Performed By: #### A DIFF, TROPHS, GFR, BMP, MDW, CBC, PBNP, ANEU #### [address] [address] Platelet 200 10 3/mcL Normal 150-450 [facility] ([place]) Comment on above: Performed By: #### A DIFF, TROPHS, GFR, BMP, MDW, CBC, PBNP, ANEU #### [address] [address] Platelet mean volume (Bld) [Entitic vol] 7.5 fL Normal 6.4-10.5 [facility] ([place]) Comment on above: Performed By: #### A DIFF, TROPHS, GFR, BMP, MDW, CBC, PBNP, ANEU #### [address] [address] RBC 5.37 10 6/mcL Normal 4.50-6.00 [facility] ([place]) Comment on above: Performed By: #### A DIFF, TROPHS, GFR, BMP, MDW, CBC, PBNP, ANEU #### [address] [address] WBC 7.9 10 3/mcL Normal 4.5-10.8 [facility] ([place] Comment on above: Performed By: #### A DIFF, TROPHS, GFR, BMP, MDW, CBC, PBNP, ANEU #### [id number] [place], [place] [address] LABORATORYOrdered By: Adenike Swain on 06-08-2023 Blood Glucose Testing Reason Routine (06/08/23 9:18 PM) [facility] Glucose [Mass/Vol] 173 mg/dL High 70 - 110 mg/dL [facility] LABORATORYOrdered By: SYSTEM SYSTEM on 06-08-2023 Basophils (Bld) [#/Vol] 0.1 103/mcL Normal 0.0 - 0.3 10^3/mcL AH Workflow SS Basophils/100 WBC (Bld) 0.7 % Normal 0.0 - 2.5 % AH Workflow SS Calcium [Mass/Vol] 8.9 mg/dL Normal 8.7 - 10. 4 mg/dL AH ADM SS Chloride [Moles/Vol] 100 mmol/L Normal 98 - 11 0 mEq/L AH ADM SS CO2 [Moles/Vol] 36 mmol/L High 22 - 32 mEq/L AH ADM SS Creatinine [Mass/Vol] 0.75 mg/dL Normal 0.60 - 1.40 mg/dL AH ADM SS Electrolyte Balance 1.0 mEq/L Low [...] 27.0 - 33.0 pg Workflow SS MCHC 34.3 G/dL Normal 32.0 [...] 06-08-2023 Magnesium [Mass/Vol] 2.1 mg/dL Normal 1.6-2.4 [facility] ([place]) Comment on above: Performed By: #### A DIFF, TROPHS, GFR, BMP, MDW, CBC, PBNP, ANEU #### Larry [address] [address] .Auto Diffon 06-07-2023 Basophil, Absolute 0.1 10 3/mcL Normal 0.0-0.3 [facility] ([place] Comment on above: Performed By: #### A DIFF, TROPHS, GFR, BMP, MDW, CBC, PBNP, ANEU #### [address] [address] Basophils/100 WBC (Bld) 0.6 % Normal 0.0-2.5 [facility] ([place] Comment on above: Performed By: #### A DIFF, TROPHS, GFR, BMP, MDW, CBC, PBNP, ANEU #### [address] [address] Eosinophil, Absolute 0.2 10 3/mcL Normal 0.0-0.7 [facility] ([place] Comment on above: Performed By: #### A DIFF, TROPHS, GFR, BMP, MDW, CBC, PBNP, ANEU #### [address] [address] Eosinophils/100 WBC (Bld) 1.6 % Normal 0.0-6.0 [facility] ([place] Comment on above: Performed By: #### A DIFF, TROPHS, GFR, BMP, MDW, CBC, PBNP, ANEU #### [address] [address] Lymphocyte, Absolute 1.4 10 3/mcL Normal 0.9-4.3 [facility] ([place] Comment on above: Performed By: #### A DIFF, TROPHS, GFR, BMP, MDW, CBC, PBNP, ANEU #### [address] [address] Lymphocytes/100 WBC (Bld) 14.0 % Low 20.0-40.0 [facility] [place] Comment on above: Performed By: #### A DIFF, TROPHS, GFR, BMP, MDW, CBC, PBNP, ANEU #### [address] [address] Monocyte, Absolute 0.6 10 3/mcL Normal 0.1-1.4 [facility] ([place] Comment on above: Performed By: #### A DIFF, TROPHS, GFR, BMP, MDW, CBC, PBNP, ANEU #### [address] [address] Monocytes/100 WBC (Bld) 6.4 % Normal 2.0-13.0 [facility] ([place] Comment on above: Performed By: #### A DIFF, TROPHS, GFR, BMP, MDW, CBC, PBNP, ANEU #### [address] [address] Neutrophils/100 WBC (Bld) 77.4 % High 50.0-75.0 [facility] ([place] Comment on above: Performed By: #### A DIFF, TROPHS, GFR, BMP, MDW, CBC, PBNP, ANEU #### [address] [address] .GFRon 06-07-2023 GFR >60 Normal [facility] ([place]) Comment on above: Result Comment: GFR Population [...] GFR, BMP, MDW, CBC, PBNP, ANEU #### [address] [address] GFR Non- >60 Normal [facility] ([place] Comment on above: Result Comment: GFR Population [...] GFR, BMP, MDW, CBC, PBNP, ANEU #### [address] [address] .NEUABSon 06-07-2023 Neutrophil, Absolute 7.7 10 3/mcL Normal 2.3-8.1 [facility] ([place]) Comment on above: Performed By: #### A DIFF, TROPHS, GFR, BMP, MDW, CBC, PBNP, ANEU #### [address] [address] CBCon 06-07-2023 Erythrocyte distribution width (RBC) [Ratio] 14.0 % Normal 11.5-15.5 [facility] ([place] Comment on above: Performed By: #### A DIFF, TROPHS, GFR, BMP, MDW, CBC, PBNP, ANEU #### [address] [address] Hematocrit (Bld) [Volume fraction] 47.6 % Normal 40.0-52.0 [facility] ([place] Comment on above: Performed By: #### A DIFF, TROPHS, GFR, BMP, MDW, CBC, PBNP, ANEU #### [address] [address] Hgb 16.3 G/dL Normal 13.0-17.5 [facility] ([place] Comment on above: Performed By: #### A DIFF, TROPHS, GFR, BMP, MDW, CBC, PBNP, ANEU #### [address] [address] MCH (RBC) [Entitic mass] 29.1 pg Normal 27.0-33.0 [facility] ([place] Comment on above: Performed By: #### A DIFF, TROPHS, GFR, BMP, MDW, CBC, PBNP, ANEU #### [address] [address] MCHC 34.2 G/dL Normal 32.0-36.0 [facility] ([place] Comment on above: Performed By: #### A DIFF, TROPHS, GFR, BMP, MDW, CBC, PBNP, ANEU #### [address] [address] MCV (RBC) [Entitic vol] 84.9 fL Normal 81.0-100.0 [facility] ([place]) Comment on above: Performed By: #### A DIFF, TROPHS, GFR, BMP, MDW, CBC, PBNP, ANEU #### [address] [address] Platelet 228 10 3/mcL Normal 150-450 [facility] ([place]) Comment on above: Performed By: #### A DIFF, TROPHS, GFR, BMP, MDW, CBC, PBNP, ANEU #### [address] [address] Platelet mean volume (Bld) [Entitic vol] 8.0 fL Normal 6.4-10.5 [facility] ([place]) Comment on above: Performed By: #### A DIFF, TROPHS, GFR, BMP, MDW, CBC, PBNP, ANEU #### [address] [address] RBC 5.61 10 6/mcL Normal 4.50-6.00 [facility] ([place]) Comment on above: Performed By: #### A DIFF, TROPHS, GFR, BMP, MDW, CBC, PBNP, ANEU #### [address] [address] WBC 9.9 10 3/mcL Normal 4.5-10.8 [facility] ([place]) Comment on above: Performed By: #### A DIFF, TROPHS, GFR, BMP, MDW, CBC, PBNP, ANEU #### [address] [address] CMPon 06-07-2023 Albumin Level 3.3 G/dL Normal 3.2-4.8 [facility] ([place]) Comment on above: Order Comment: hemol yzed. needs redrawn Performed By: #### A DIFF, TROPHS, GFR, BMP, MDW, CBC, PBNP, ANEU #### [address] [address] Albumin/Globulin [Mass ratio] 0.9 {ratio} Normal 0.9-1.6 [facility] ([place]) Comment on above: Order Comment: hemol yzed. needs redrawn Performed By: #### A DIFF, TROPHS, GFR, BMP, MDW, CBC, PBNP, ANEU #### [address] [address] ALP [Catalytic activity/Vol] 93 U/L Normal 38-126 [facility] ([place] Comment on above: Order Comment: hemol yzed. needs redrawn Performed By: #### A DIFF, TROPHS, GFR, BMP, MDW, CBC, PBNP, ANEU #### [address] [address] ALT [Catalytic activity/Vol] 13 U/L Normal 12-55 [facility] ([place] Comment on above: Order Comment: hemol yzed. needs redrawn Performed By: #### A DIFF, TROPHS, GFR, BMP, MDW, CBC, PBNP, ANEU #### [address] [address] AST [Catalytic activity/Vol] 13 U/L Normal 8-34 [facility] ([place] Comment on above: Order Comment: hemol yzed. needs redrawn Performed By: #### A DIFF, TROPHS, GFR, BMP, MDW, CBC, PBNP, ANEU #### [address] [address] Bili Total 0.30 mg/dL Normal 0.20-1.20 [facility] ([place] Comment on above: Order Comment: hemol yzed. needs redrawn Result Comment: Use of this assay is not recommended for patients undergoing treatment with eltrombopag due to the potential for falsely elevated results. Performed By: #### A DIFF, TROPHS, GFR, BMP, MDW, CBC, PBNP, ANEU #### [address] [address] BUN/Creatinine Ratio 10.8 ratio Normal 10.0-22.0 [facility] ([place]) Comment on above: Order Comment: hemol yzed. needs redrawn Performed By: #### A DIFF, TROPHS, GFR, BMP, MDW, CBC, PBNP, ANEU #### [address] [address] Calcium [Mass/Vol] 8.8 mg/dL Normal 8.7-10.4 [facility] ([place]) Comment on above: Order Comment: hemol yzed. needs redrawn Performed By: #### A DIFF, TROPHS, GFR, BMP, MDW, CBC, PBNP, ANEU #### [address] [address] Chloride [Moles/Vol] 97 mmol/L Low 98-110 [facility] ([place]) Comment on above: Order Comment: hemol yzed. needs redrawn Performed By: #### A DIFF, TROPHS, GFR, BMP, MDW, CBC, PBNP, ANEU #### [address] [address] CO2 [Moles/Vol] 37 mmol/L High 22-32 [facility] ([place]) Comment on above: Order Comment: hemol yzed. needs redrawn Performed By: #### A DIFF, TROPHS, GFR, BMP, MDW, CBC, PBNP, ANEU #### [address] [address] Creatinine [Mass/Vol] 0.93 mg/dL Normal 0.60-1.40 [facility] ([place]) Comment on above: Order Comment: hemol yzed. needs redrawn Performed By: #### A DIFF, TROPHS, GFR, BMP, MDW, CBC, PBNP, ANEU #### [address] [address] Electrolyte Balance 3.0 mEq/L Low 4.0-15.0 [facility] ([place]) Comment on above: Order Comment: hemol yzed. needs redrawn Performed By: #### A DIFF, TROPHS, GFR, BMP, MDW, CBC, PBNP, ANEU #### [address] [address] Globulin 3.6 G/dL Normal 1.5-3.8 [facility] ([place] Comment on above: Order Comment: hemol yzed. needs redrawn Performed By: #### A DIFF, TROPHS, GFR, BMP, MDW, CBC, PBNP, ANEU #### [address] [address] Glucose [Mass/Vol] 209 mg/dL High 70-110 [facility] ([place] Comment on above: Order Comment: hemol yzed. needs redrawn Performed By: #### A DIFF, TROPHS, GFR, BMP, MDW, CBC, PBNP, ANEU #### [address] [address] Potassium [Moles/Vol] 3.6 mmol/L Normal 3.5-5.0 [facility] ([place]) Comment on above: Order Comment: hemol yzed. needs redrawn Result Comment: Spec imen slightly hemolyzed. Performed By: #### A DIFF, TROPHS, GFR, BMP, MDW, CBC, PBNP, ANEU #### [address] [address] Sodium [Moles/Vol] 137 mmol/L Normal 136-145 [facility] ([place]) Comment on above: Order Comment: hemol yzed. needs redrawn Performed By: #### A DIFF, TROPHS, GFR, BMP, MDW, CBC, PBNP, ANEU #### [address] [address] Total Protein 6.9 G/dL Normal 5.7-8.2 [facility] ([place]) Comment on above: Order Comment: hemol yzed. needs redrawn Result Comment: No te - New Reference Range in effect 19 Performed By: #### A DIFF, TROPHS, GFR, BMP, MDW, CBC, PBNP, ANEU #### [id number] [place], [place] [address] Urea nitrogen [Mass/Vol] 10.0 mg/dL Normal 8.0-22.0 [facility] ([place] Comment on above: Order Comment: hemol yzed. needs redrawn Performed By: #### A DIFF, TROPHS, GFR, BMP, MDW, CBC, PBNP, ANEU #### [id number] [place], [place] [address] LABORATORYOrdered By: SYSTEM SYSTEM on 06-07-2023 Albumin [...] 1.5 - 3.8 G/dL ADM Glucose [Mass/Vol] 209 mg/dL High 70 - 110 mg/dL ADM SS Magnesium [Mass/Vol] 1.7 mg/dL Normal 1.6 - 2 .4 mg/dL ADM SS Potassium [Moles/Vol] 3.6 mmol/L Normal 3.5 - 5.0 mEq/L [facility] Comment on above: Result Comment: Spec [...] 9.9 103/mcL Normal 4.5 - 10.8 10^3/mcL Workflow SS MGon 06-07-2023 Magnesium [Mass/Vol] 1.7 mg/dL Normal 1.6-2.4 [facility] ([place]) Comment on above: Performed By: #### A DIFF, TROPHS, GFR, BMP, MDW, CBC, PBNP, ANEU #### [address] [address] XR CHEST 1 VIEWon 05-05-2023 XR CHEST [...] resident's findings and interpretation. Interpreted by: Trace Clark Preliminary Report By: Lesia Flannery Electronically signed By Trace Clark Dictated Date: 05/05/2023 9:06:00 PM Prelim Date: 05/05/2023 9:09:28 PM Sign Date: 05/05/2023 9:17:04 PM Ordering Provider: DEMI Kate [facility] ([place] XR RIBS 2 VIEWS RIGHTon 12-0 XR RIBS 2 VIEWS RIGHT ORIGINAL EXAMINATION: 2 XRAY VIEWS OF THE RIGHT RIBS 05/05/2023 7:54 pm COMPARISON: None. HISTORY: ORDERING SYSTEM PROVIDED HISTORY: Reason for Exam: pain FINDINGS: No visible rib fracture. IMPRESSION: No visible rib fracture. Interpreted by: Trace Clark Preliminary Report By: Trace Clark Electronically signed By Trace Clark Dictated Date: 05/05/2023 9:07:05 PM Prelim Date: 05/05/2023 9:08:30 PM Sign Date: 05/05/2023 9:08:30 PM Ordering Provider: DEMI Kate [facility] ([place]) PBNPon 03-22-2023 Natriuretic peptide B (Bld) [Mass/Vol] 378 pg/mL High 0-125 [facility] ([place] Comment on above: Result Comment: NT-p roBNP results of less than 300 pg/mL effectively rules out acute congestive heart failure with 99% negative predictive value. Performed By: #### A DIFF, TROPHS, GFR, BMP, MDW, CBC, PBNP, ANEU #### [address] [address] Influenza virus A and B and SARS-CoV-2 (COVID-19) Ag panel - Upper respiratory specimOrdered By: Nguyễn Al on 02-12-2023 SARS-CoV-2 (COVID-19) RNA ROSE+probe Ql (Resp) [facility] LABORATORYOrdered By: SYSTEM SYSTEM on 12-23-2022 [...] Auto (Unsp spec) [#/Vol] 1.50 10*3/uL 0.83-4.51 [facility] Basophil percentageOrdered B y: Dr. Brown on 10-23-2022 Basophils/100 WBC (Bld) 0.8 % 0-1 [facility] Chloride [Moles/Vol] 102 mmol/L 98-107 [facility] Eosinophils/100 WBC (Bld) 2.4 % 0-5 [facility] Glucose [Mass/Vol] 126 mg/dL 74-106 [facility] Comment on above: Fasting Glucose resu lt greater than or equal to 126 mg/dL suggests DIABETES MELLITUS per A.D.A. criteria. Neutrophils (Bld) [#/Vol] 5.4 10*3/uL 2.0-7.7 [facility] Neutrophils/100 WBC (Bld) 67.9 % 47-70 [facility] Potassium [Moles/Vol] 3.2 mmol/L 3.5-5.1 [facility] Sodium [Moles/Vol] 140 mmol/L 136-145 [facility] WBC (Bld) [#/Vol] 7.9 10*3/uL 4.4-11.0 [facility] Blood erythrocytes count (nu mber/volume)Ordered By: Dr. Brown on 10-23-2022 RBC (Bld) [#/Vol] 6.06 10*6/uL 4.6-6.2 [facility] [place] [facility] Blood hemoglobin measurement (mass/volume)Ordered By: Dr. Brown on 10-23-2022 Hemoglobin (Bld) [Mass/Vol] 17.2 g/dL 13.0-16.5 [facility] Blood lymphocytes/100 leukoc ytesOrdered By: Dr. Brown on 10-23-2022 Lymphocytes/100 WBC (Bld) 19.0 % 19-41 [facility] Blood monocytes/100 leukocyt esOrdered By: Dr. Brown on 10-23-2022 Monocytes/100 WBC (Bld) 9.6 % 0-10 [facility] Blood platelet mean volumeOr dered By: Dr. Brown on 10-23-2022 Platelet mean volume (Bld) [Entitic vol] 10.3 fL 6.2-12.0 [facility] Determination of erythrocyte mean corpuscular volume (MCV)Ordered By: Dr. Brown on 10-23-2022 MCV (RBC) [Entitic vol] 89.6 fL 80-94 [facility] Hematocrit Auto (Bld) [Volum e fraction]Ordered By: Dr. Brown on 10-23-2022 Hematocrit (Bld) [Volume fraction] 54.3 % 40-54 [facility] Laboratory - Chemistry and C hemistry - challengeOrdered By: Dr. Brown on 10-23-2022 CO2 [Moles/Vol] 32.0 mmol/L 21.0-32.0 [facility] Natriuretic peptide B (Bld) [Mass/Vol] 182.2 pg/mL 0-100 [facility] Urea nitrogen/Creatinine [Mass ratio] 13.0 mg/mg 10-20 [facility] Laboratory - Hematology and Cell countsOrdered By: Dr. Brown on 10-23-2022 Erythrocyte distribution width (RBC) [Entitic vol] 46.1 fL 35.1-43.9 [facility] Erythrocyte distribution width (RBC) [Ratio] 14.1 % 11.6-14.6 [facility] Immature granulocytes/100 WBC (Bld) 0.300 % 0.0-0.9 [facility] Comment on above: IG% - Immature Granu locytes (promyelocytes, myelocytes and metamyelocytes) > 1% indicates that a LEFT SHIFT is Present. MCH (RBC) [Entitic mass] 28.4 pg 27.0-32.0 [facility] Nucleated RBC/100 WBC (Bld) [Ratio] 0 % 0-5 [facility] MCHC Auto (RBC) [Mass/Vol]Or dered By: Dr. Brown on 10-23-2022 MCHC (RBC) [Mass/Vol] 31.7 g/dL 32-36 [facility] No Panel InformationOrdered By: Dr. Brown on 10-23-2022 Troponin I High Sensitivity 14 pg/mL 3.0-78.0 [facility] Comment on above: Please Note: New Faye t Units and Gender Specific Reference Ranges. For more information see Policy Stat Procedure [place] High Sensitivity Troponin (TNIH) and attachments. Estimated Creatinine Clearance Calc 104.04 ml/min [facility] Estimated GFR (MDRD) Amer 123 mL/min >60 [facility] Comment on above: GFR Calc Estimated GFR (MDRD) Non-Af Amer 102 mL/min >60 [facility] Comment on above: Non- GFR Calc Platelets bldOrdered By: Dr. Brown on 10-23-2022 Platelets (Bld) [#/Vol] 234 10*3/uL 150-450 [facility] Serum or plasma calcium scott urement (mass/volume)Ordered By: Dr. Brown on 10-23-2022 Calcium [Mass/Vol] 8.7 mg/dL 8.5-10.1 [facility] Serum or plasma creatinine m easurement (mass/volume)Ordered By: Dr. Brown on 10-23-2022 Creatinine [Mass/Vol] 0.84 mg/dL 0.70-1.30 [facility] Comment on above: The validity of the calculated GFR & GFRAA in patients over 70 years has not been determined. Clinical correlation is essential. Serum or plasma urea nitroge n measurement (mass/volume)Ordered By: Dr. Brown on 10-23-2022 Urea nitrogen [Mass/Vol] 11 mg/dL 7-18 [facility] Thin prep Papanicolaou smear with manual screeningOrdered By: Dr. Brown on 10-23-2022 Thin prep Papanicolaou smear with manual screening 6 5-15 [facility] Invasive Cardiology Clinic N oteon 08-24-2021 Invasive Cardiology Clinic Note . [facility] A Division of [facility] Gem Barr M.D., [place] [address] * Reason for VisitFOLLOW UP CHEST PAIN(1) [...] me to participate in your patient's care. Forensic Psychiatrist Statement: Transcribed for Dr. Barr by LEWIS , it professional. Electronic Signatures: Gem Barr) (Signed 11:31) Authored: Letterhead Option, Reason for Visit, Vital Signs, Allergies/Meds, History of Present Illness, Past Medical, Surgical and Family History, ROS, Physical Exam, Results, Assessment and Plan, Forensic Psychiatrist Statement Km Phan (Signal Technician) (Entered 15:30) Entered: Letterhead Option, Reason for Visit, Vital Signs, Allergies/Meds, History of Pr (more content not included)... Normal Files Supervisor Services Echocardiogram-Completeon Echocardiogram-Complete Study ID: [id number] [facility] [place] [address] Name: CARLOS ALBERTO HOROWITZ JR Study Date: 08/17/2021 07:55 AM BP: 152/92 mmHg Patient Location: [facility] HR: 84 : 1970 Gender: Male Height: 69 in Age: 50 yrs Weight: 348 lb Reason For Study: Chest Pain NOS BSA: 2.6 m2 History: Age,Hypertension,Diab etes Ordering Physician: Gem Barr Referring Physician: Zacarias Hoyos Performed By: Betsy Mendez RDCS Interpreting physician: [...] mmHg MV P1/2t-pr: 94.6 msec E/LatE': 9.4 [id number] [facility] Invasive Cardiology Clinic N mary 08-02-2021 Invasive Cardiology Clinic Note . [facility] A Division of [facility] Gem Barr M.D., [place] [address] * Reason for VisitFOLLOW UP CHEST PAIN(1) [...] evident in Inferior leads Referred By: ZACARIAS HOYOS Confirmed By: : 1970 Vital Signs: Vital [...] to con (more content not included)... Normal Files Supervisor Services Vu 01-29-2021 ER EMERGENCY ROOM [...] up with his primary care physician and/or terminologist. Normal [facility] GLYCOHEMOGLOBINon 01-06-2021 HbA1c (Bld) [Mass fraction] 6.43 % High 4.60-6.30 [facility] Comment on above: Performed By: #### % A1c #### [facility] [address] [place], [place] [id number] SUE Flores MD LIPID PROFILE - FASTINGon Cholesterol [Mass/Vol] 152 mg/dL Normal <=200 [facility] Comment on above: Performed By: #### L IPID #### [facility] [address] [place], [place] [id number] SUE Flores MD Cholesterol in HDL [Mass/Vol] 28 mg/dL Low 40-60 [facility] Comment on above: Performed By: #### L IPID #### [facility] [address] [place], [place] [id number] SUE Flores MD Cholesterol in LDL [Mass/Vol] 85 mg/dL Normal 0-130 [facility] Comment on above: Performed By: #### L IPID #### [facility] [address] [place], [place] [id number] SUE Flores MD COMMENT Recommended (Desirable) < 130mg/dL Moderate Risk 130-159 mg/dL High Risk: >/= 130 mg/dL Normal [facility] Comment on above: Performed By: #### L IPID #### [facility] [address] [place], [place] [id number] SUE Flores MD Triglyceride [Mass/Vol] 198 mg/dL High <=150 [facility] Comment on above: Performed By: #### L IPID #### [facility] [address] [place], [place] [id number] SUE Flores MD RENAL FUNCTION PANELon 01-06 Albumin [Mass/Vol] 4.4 g/dL Normal 3.5-5.[address] [facility] Comment on above: Performed By: #### R FP #### [facility] [address] [place] [address] SUE Flores MD Calcium [Mass/Vol] 9.6 mg/dL Normal 8.4-10.[address] [facility] Comment on above: Performed By: #### R FP #### [facility] [address] [place] [address] SUE Flores MD Chloride [Moles/Vol] 96 mmol/L Low 98-107 [facility] Comment on above: Performed By: #### R FP #### [facility] [address] [place] [address] SUE Flores MD Creatinine [Mass/Vol] 0.9 mg/dL Normal 0.7-1.[address] [facility] Comment on above: Performed By: #### R FP #### [facility] [address] [place] [address] SUE Flores MD ECO2 29 mmol/L Normal 22-30 [facility] Comment on above: Performed By: #### R FP #### [facility] [address] [place], [place] [id number] SUE Flores MD EGFR-AF MACEDONIAN 109 mL/min/1.73m 2 Normal >=60 [facility] Comment on above: Performed By: #### R FP #### [facility] [address] [place], [place] [id number] SUE Flores MD EGFR-NON AF MACEDONIAN 90 mL/min/1.73 m 2 Normal >=60 [facility] Comment on above: Performed By: #### R FP #### [facility] [facility] [address] [place] [id number] SUE Flores MD Glucose [Mass/Vol] 146 mg/dL High 70-[address] [facility] Comment on above: Performed By: #### R FP #### [facility] [address] [place] [id number] SUE Flores MD Phosphate [Mass/Vol] 4.2 mg/dL Normal 2.5-4.5 [facility] Comment on above: Performed By: #### R FP #### [facility] [address] [place] [id number] SUE Flores MD Potassium [Moles/Vol] 4.0 mmol/L Normal 3.5-5.[address] [facility] Comment on above: Performed By: #### R FP #### [facility] [address] [place], [place] [id number] SUE Flores MD Sodium [Moles/Vol] 136 mmol/L Low 137-[address] [facility] Comment on above: Performed By: #### R FP #### [facility] [address] [place] [id number] SUE Flores MD Urea nitrogen [Mass/Vol] 13 mg/dL Normal 9-20 [facility] Comment on above: Performed By: #### R FP #### [facility] [address] [place] [id number] SUE Flores MD CHEST TWO VIEWSon 11-09-2020 [...] DYER MD Date: 11/09/2020 3:55 PM Normal [facility] CBC PLT DIFFon 06-11-2020 BASO # 0.04 10 3/uL Normal 0.00-0.10 [facility] Comment on above: Performed By: #### C BC #### [facility] [address] [place], [place] [id number] SUE Flores MD Basophils/100 WBC (Bld) 0.5 % Normal 0.2-1.0 [facility] Comment on above: Performed By: #### C BC #### [facility] [address] [place] [address] SUE Flores MD EOS# 0.19 10 3/uL Normal 0.00-0.20 [facility] Comment on above: Performed By: #### C BC #### [facility] [address] [place], [place] [id number] SUE Flores MD Eosinophils/100 WBC (Bld) 2.3 % Normal 0.9-2.9 [facility] Comment on above: Performed By: #### C BC #### [facility] [address] [place] [address] SUE Flores MD Erythrocyte distribution width (RBC) [Ratio] 13.4 % Normal 11.5-15.5 [facility] Comment on above: Performed By: #### C BC #### [facility] [address] [place] [address] SUE Flores MD Hematocrit (Bld) [Volume fraction] 46.5 % Normal 42.0-52.0 [facility] Comment on above: Performed By: #### C BC #### [facility] [address] [place] [address] SUE Flores MD Hemoglobin (Bld) [Mass/Vol] 16.0 g/dL Normal 14.0-18.0 [facility] Comment on above: Performed By: #### C BC #### [facility] [address] [place] [address] SUE Flores MD IG# 0.04 10 3/uL Normal [facility] Comment on above: Performed By: #### C BC #### [facility] [address] [place], [place] [id number] SUE Flores MD IG% 0.5 % Normal [facility] Comment on above: Performed By: #### C BC #### [facility] [address] [place], [place] [id number] SUE Flores MD LYMPH# 1.41 10 3/uL Normal 1.30-2.90 [facility] Comment on above: Performed By: #### C BC #### [facility] [address] [place], [place] [id number] SUE Flores MD Lymphocytes/100 WBC (Bld) 17.4 % Low 20.5-45.5 [facility] Comment on above: Performed By: #### C BC #### [facility] [address] [place], [place] [id number] SUE Flores MD MCH (RBC) [Entitic mass] 30.1 pg Normal 27.0-31.0 [facility] Comment on above: Performed By: #### C BC #### [facility] [address] [place] [address] SUE Flores MD MCHC (RBC) [Mass/Vol] 34.4 g/dL Normal 32.0-36.[address] [facility] Comment on above: Performed By: #### C BC #### [facility] [address] [place], [place] [id number] SUE Flores MD MCV (RBC) [Entitic vol] 87.6 fL Normal 80.0-94.0 [facility] Comment on above: Performed By: #### C BC #### [facility] [address] [place], [place] [id number] SUE Flores MD MONO# 0.67 10 3/uL Normal 0.30-0.80 [facility] Comment on above: Performed By: #### C BC #### [facility] [address] [place], [place] [id number] SUE Flores MD Monocytes/100 WBC (Bld) 8.3 % Normal 5.5-11.7 [facility] Comment on above: Performed By: #### C BC #### [facility] [address] [place], [place] [id number] SUE Flores MD Morphology Rocky (Bld) [Interp] Normal [facility] Comment on above: Performed By: #### C BC #### [facility] [address] [place] [id number] SUE Flores MD NEUT# 5.75 10 3/uL High 2.20-4.80 [facility] Comment on above: Performed By: #### C BC #### [facility] [address] [place], [place] [id number] SUE Flores MD Neutrophils/100 WBC (Bld) 71.0 % High 43.0-65.0 [facility] Comment on above: Performed By: #### C BC #### [facility] [address] [place], [place] [id number] SUE Flores MD NRBC# 0.00 10 3/uL Normal [facility] Comment on above: Performed By: #### C BC #### [facility] [address] [place] [address] SUE Flores MD Nucleated RBC/100 WBC (Bld) [Ratio] 0.0 % Normal [facility] Comment on above: Performed By: #### C BC #### [facility] [address] [place], [place] [id number] SUE Flores MD Platelet mean volume (Bld) [Entitic vol] 8.4 fL Normal 7.4-10.4 [facility] Comment on above: Performed By: #### C BC #### [facility] [address] [place], [place] [address] SUE Flores MD PLT 221 10 3/uL Normal 130-400 [facility] Comment on above: Performed By: #### C BC #### [facility] [address] [place], [place] [id number] SUE Flores MD RBC 5.31 10 6/uL Normal 4.70-6.10 [facility] Comment on above: Performed By: #### C BC #### [facility] [address] [place], [place] [id number] SUE Flores MD WBC 8.10 10 3/uL Normal 4.70-10.80 [facility] Comment on above: Performed By: #### C BC #### [facility] [address] [place] [address] SUE Flores MD CMPon 06-11-2020 Albumin [Mass/Vol] 4.1 g/dL Normal 3.5-5.[address] [facility] Comment on above: Performed By: #### C MP #### [facility] [address] [place] [address] SUE Flores MD ALP [Catalytic activity/Vol] 72 U/L Normal 38-126 [facility] Comment on above: Performed By: #### C MP #### [facility] [address] [place] [address] SUE Flores MD ALT [Catalytic activity/Vol] 17 U/L Low 21-72 [facility] Comment on above: Performed By: #### C MP #### [facility] [address] [place] [address] SUE Flores MD AST [Catalytic activity/Vol] 21 U/L Normal 17-59 [facility] Comment on above: Performed By: #### C MP #### [facility] [address] [place] [address] SUE Flores MD Bilirubin [Mass/Vol] 0.6 mg/dL Normal 0.2-1.3 [facility] Comment on above: Performed By: #### C MP #### [facility] [address] [place] [address] SUE Flores MD Calcium [Mass/Vol] 8.9 mg/dL Normal 8.4-10.[address] [facility] Comment on above: Performed By: #### C MP #### [facility] [address] [place] [address] SUE Flores MD Chloride [Moles/Vol] 99 mmol/L Normal 98-107 [facility] Comment on above: Performed By: #### C MP #### [facility] [address] [place] [address] SUE Flores MD Creatinine [Mass/Vol] 0.7 mg/dL Normal 0.7-1.[address] [facility] Comment on above: Performed By: #### C MP #### [facility] [address] [place] [address] SUE Flores MD ECO2 30 mmol/L Normal 22-30 [facility] Comment on above: Performed By: #### C MP #### [facility] [address] [place], [place] [id number] SUE Flores MD EGFR-AF MACEDONIAN 146 mL/min/1.73m 2 Normal >=60 [facility] Comment on above: Performed By: #### C MP #### [facility] [address] [place] [address] SUE Flores MD EGFR-NON AF MACEDONIAN 120 mL/min/1.73 m 2 Normal >=60 [facility] Comment on above: Performed By: #### C MP #### [facility] [address] [place] [address] SUE Flores MD Glucose [Mass/Vol] 125 mg/dL High 70-[address] [facility] Comment on above: Performed By: #### C MP #### [facility] [address] [place] [address] SUE Flores MD Potassium [Moles/Vol] 3.6 mmol/L Normal 3.5-5.[address] [facility] Comment on above: Performed By: #### C MP #### [facility] [address] [place] [address] SUE Flores MD Protein [Mass/Vol] 7.4 g/dL Normal 6.3-8.[address] [facility] Comment on above: Performed By: #### C MP #### [facility] [address] [place] [address] SUE Flores MD Sodium [Moles/Vol] 136 mmol/L Low 137-[address] [facility] Comment on above: Performed By: #### C MP #### [facility] [address] [place], [place] [id number] SUE Flores MD Urea nitrogen [Mass/Vol] 11 mg/dL Normal 9-20 [facility] Comment on above: Performed By: #### C MP #### [facility] [address] [place] [address] SUE Flores MD GLYCOHEMOGLOBINon 06-11-2020 HbA1c (Bld) [Mass fraction] 6.22 % Normal 4.00-6.30 [facility] Comment on above: Performed By: #### % A1c #### [facility] [address] [place] [address] SUE Flores MD LIPID PROFILE - FASTINGon Cholesterol [Mass/Vol] 147 mg/dL Normal <=200 [facility] Comment on above: Performed By: #### L IPID #### [facility] [address] [place] [address] SUE Flores MD Cholesterol in HDL [Mass/Vol] 24 mg/dL Low 40-60 [facility] Comment on above: Performed By: #### L IPID #### [facility] [address] [place] [address] SUE Flores MD Cholesterol in LDL [Mass/Vol] 89 mg/dL Normal 0-130 [facility] Comment on above: Performed By: #### L IPID #### [facility] [address] [place] [address] SUE Flores MD COMMENT Recommended (Desirable) < 130mg/dL Moderate Risk 130-159 mg/dL High Risk: >/= 130 mg/dL Normal [facility] Comment on above: Performed By: #### L IPID #### [facility] [address] [place] [address] SUE Flores MD Triglyceride [Mass/Vol] 167 mg/dL High <=150 [facility] Comment on above: Performed By: #### L IPID #### [facility] [address] [place], [place] [id number] SUE Flores MD URIC ACIDon 06-11-2020 Urate [Mass/Vol] 5.6 mg/dL Normal 3.5-8.5 [facility] Comment on above: Performed By: #### U R #### [facility] [address] [place] [address] SUE Flores MD Vital Signs Date Time Vital Sign Value Performing Clinician Adriano herbert 12-29-2024 12:23-0400 Heart rate 73 /min Girma Correa [employer] Work Phone: [facility] 12-29-2024 12:23-0400 Respiratory rate 18 /min Girma Correa [employer] Work Phone: [facility] 12-29-2024 09:20-0400 Body temperature 97.8 [degF] Girma Correa [employer] Work Phone: [facility] 12-29-2024 09:20-0400 Diastolic blood pressure 76 mm[Hg] Girma Correa [employer] Work Phone: [facility] 12-29-2024 09:20-0400 SaO2% (BldA) [Mass fraction] 93 % Girma Correa [employer] Work Phone: [facility] 12-29-2024 09:20-0400 Systolic blood pressure 120 mm[Hg] Girma Correa [employer] Work Phone: [facility] 12-29-2024 07:46-0400 Inhaled oxygen flow rate 2 L/min Girma Correa [employer] Work Phone: [facility] 12-29-2024 03:13-0400 Body mass index (BMI) [Ratio] 46 kg/m2 Girma Correa [employer] Work Phone: [facility] 12-29-2024 03:13-0400 Body weight 141.6 kg Girma Correa [employer] Work Phone: [facility] 12-28-2024 04:09-0400 Body height 175.26 cm Girma Correa [employer] Work Phone: [facility] 12-28-2024 03:50-0400 Body temperature 97.5 [degF] Girma Correa [employer] Work Phone: [facility] 12-28-2024 03:50-0400 Diastolic blood pressure 80 mm[Hg] Girma Correa [employer] Work Phone: [facility] 12-28-2024 03:50-0400 Heart rate 112 /min Girma Correa [employer] Work Phone: [facility] 12-28-2024 03:50-0400 Respiratory rate 18 /min Girma Correa [employer] Work Phone: [facility] 12-28-2024 03:50-0400 SaO2% (BldA) [Mass fraction] 96 % Girma Correa [employer] Work Phone: [facility] 12-28-2024 03:50-0400 Systolic blood pressure 104 mm[Hg] Girma Correa [employer] Work Phone: [facility] 12-28-2024 00:44-0400 Inhaled oxygen flow rate 4 L/min Girma Correa [employer] Work Phone: [facility] 12-27-2024 23:19-0400 Body height 175.26 cm Girma Correa [employer] Work Phone: [facility] 12-27-2024 23:19-0400 Body mass index (BMI) [Ratio] 46.7 kg/m2 Girma Correa [employer] Work Phone: [facility] 12-27-2024 23:19-0400 Body weight 143.42 kg Girma Correa [employer] Work Phone: [facility] 12-21-2024 12:18-0400 Body temperature 97.9 [degF] Girma Correa [employer] Work Phone: [facility] 12-21-2024 12:18-0400 Diastolic blood pressure 76 mm[Hg] Girma Correa [employer] Work Phone: [facility] 12-21-2024 12:18-0400 Heart rate 70 /min Girma Correa [employer] Work Phone: [facility] 12-21-2024 12:18-0400 Respiratory rate 16 /min Girma Correa [employer] Work Phone: [facility] 12-21-2024 12:18-0400 SaO2% (BldA) [Mass fraction] 98 % Girma Correa [employer] Work Phone: [facility] 12-21-2024 12:18-0400 Systolic blood pressure 137 mm[Hg] Girma Correa [employer] Work Phone: [facility] 12-21-2024 08:26-0400 Inhaled oxygen flow rate 2 L/min Girma Correa [employer] Work Phone: [facility] 12-21-2024 03:14-0400 Body mass index (BMI) [Ratio] 45.8 kg/m2 Girma Correa [employer] Work Phone: [facility] 12-21-2024 03:14-0400 Body weight 140.6 kg Girma Correa [employer] Work Phone: [facility] 12-20-2024 21:02-0400 Body height 175.26 cm Girma Correa [employer] Work Phone: [facility] 12-20-2024 19:58-0400 Body temperature 98.2 [degF] Girma Correa [employer] Work Phone: [facility] 12-20-2024 19:58-0400 Diastolic blood pressure 64 mm[Hg] Girma Correa [employer] Work Phone: [facility] 12-20-2024 19:58-0400 Heart rate 72 /min Girma Correa [employer] Work Phone: [facility] 12-20-2024 19:58-0400 Respiratory rate 16 /min Girma Correa [employer] Work Phone: [facility] 12-20-2024 19:58-0400 SaO2% (BldA) [Mass fraction] 97 % Girma Correa [employer] Work Phone: [facility] 12-20-2024 19:58-0400 Systolic blood pressure 137 mm[Hg] Girma Correa [employer] Work Phone: [facility] 12-20-2024 15:51-0400 Body mass index (BMI) [Ratio] 47.1 kg/m2 Girma Correa [employer] Work Phone: [facility] 12-20-2024 15:51-0400 Body weight 144.7 kg Girma Correa [employer] Work Phone: [facility] 12-20-2024 14:00-0400 Inhaled oxygen flow rate 2 L/min Girma Correa [employer] Work Phone: [facility] 12-20-2024 13:05-0400 Body height 175.26 cm Girma Correa [employer] Work Phone: [facility] 12-20-2024 03:00-0400 Diastolic blood pressure 82 mm[Hg] Girma Correa [employer] Work Phone: [facility] 12-20-2024 03:00-0400 Heart rate 61 /min Girma Correa [employer] Work Phone: [facility] 12-20-2024 03:00-0400 Respiratory rate 17 /min Girma Correa [employer] Work Phone: [facility] 12-20-2024 03:00-0400 Systolic blood pressure 126 mm[Hg] Girma Correa [employer] Work Phone: [facility] 12-20-2024 02:36-0400 Body temperature 98.2 [degF] Girma Correa [employer] Work Phone: [facility] 12-19-2024 22:20-0400 Body height 175.26 cm Girma Correa [employer] Work Phone: [facility] 12-19-2024 22:20-0400 Body mass index (BMI) [Ratio] 47.5 kg/m2 Girma Correa [employer] Work Phone: [facility] 12-19-2024 22:20-0400 Body weight 146.1 kg Girma Correa [employer] Work Phone: [facility] 10-04-2024 21:13-0400 Reason For Taking VItal Signs DR ROBERT SCHMITZ MD [address] [place] [address] 10-04-2024 19:37-0400 Heart rate 71 /min DR ROBERT Walls [address] [place] [address] 10-04-2024 19:37-0400 Reason For Taking VItal Signs DR ROBERT SCHMITZ MD [address] [place] [address] 10-04-2024 19:37-0400 Respiratory rate 18 /min DR ROBERT Walls [address] [place] [address] 10-04-2024 19:14-0400 Heart rate 66 /min DR ROBERT Walls [address] [place] [address] 10-04-2024 19:14-0400 Blood Pressure Cuff Size DR ROBERT SCHMITZ MD [address] [place] [address] 10-04-2024 19:14-[address] ROBERT SCHMITZ MD [address] [place] [address] 10-04-2024 19:14-[address] ROBERT SCHMITZ MD [address] [place] [address] 10-04-2024 19:14-0400 Body temperature 97.7 [degF] DR ROBERT Walls [address] [place] [address] 10-04-2024 19:14-0400 Diastolic Blood Pressure Non-Invasive 90 mm[Hg] DR ROBERT SCHMITZ MD [address] [place] [address] 10-04-2024 19:14-0400 Reason For Taking VItal Signs DR ROBERT SCHMITZ MD [address] [place] [address] 10-04-2024 19:14-0400 Respiratory rate 16 /min DR ROBERT Walls [address] [place] [address] 10-04-2024 19:14-0400 Systolic Blood Pressure Non-Invasive 138 mm[Hg] DR ROBERT SCHMITZ MD [address] [place] [address] 10-04-2024 16:28-0400 Heart rate 72 /min DR ROBERT Walls [address] [place] [address] 10-04-2024 15:31-0400 Heart rate 72 /min DR ROBERT Walls [address] [place] [address] 10-04-2024 15:31-0400 Blood Pressure Cuff Size DR ROBERT SCHMITZ MD [address] [place] [address] 10-04-2024 15:31-[address] ROBERT SCHMITZ MD [address] [place] [address] 10-04-2024 15:31-[address] ROBERT SCHMITZ MD [address] [place] [address] 10-04-2024 15:31-0400 Body temperature 97.52 [degF] DR ROBERT Walls [address] [place] [address] 10-04-2024 15:31-0400 Diastolic Blood Pressure Non-Invasive 72 mm[Hg] DR ROBERT SCHMITZ MD [address] [place] [address] 10-04-2024 15:31-0400 Respiratory rate 16 /min DR ROBERT Walls [address] [place] [address] 10-04-2024 15:31-0400 Systolic Blood Pressure Non-Invasive 120 mm[Hg] DR ROBERT SCHMITZ MD [address] [place] [address] 10-04-2024 15:02-0400 Blood Pressure Cuff Size DR ROBERT SCHMITZ MD [address] [place] [address] 10-04-2024 15:02-[address] ROBERT SCHMITZ MD [address] [place] [address] 10-04-2024 15:02-[address] ROBERT SCHMITZ MD [address] [place] [address] 10-04-2024 15:02-0400 Body temperature 97.88 [degF] DR ROBERT Walls [address] [place] [address] 10-04-2024 15:02-0400 Diastolic Blood Pressure Non-Invasive 78 mm[Hg] DR ROBERT SCHMITZ MD [address] [place] [address] 10-04-2024 15:02-0400 Heart rate 73 /min DR ROBERT Walls [address] [place] [address] 10-04-2024 15:02-0400 Systolic Blood Pressure Non-Invasive 116 mm[Hg] DR ROBERT SCHMITZ MD [address] [place] [address] 10-04-2024 11:59-0400 Heart rate 61 /min DR ROBERT Walls [address] [place] [address] 10-04-2024 07:54-0400 Heart rate 66 /min DR ROBERT Walls [address] [place] [address] 10-04-2024 07:46-0400 Heart rate 64 /min DR ROBERT Walls [address] [place] [address] 10-03-2024 16:05-0400 Heart rate 74 /min DR ROBERT Walls [address] [place] [address] 10-02-2024 06:28-0400 Body height 177.[address] ROBERT Walls [address] [place] [address] 10-02-2024 06:28-0400 Body weight 140.[address] ROBERT Walls [address] [place] [address] 10-02-2024 06:28-0400 Body weight 44.38 kg/m2 DR ROBERT Walls [address] [place] [address] 10-02-2024 05:00-0400 Diastolic Blood Pressure Non-Invasive 68 mm[Hg] DELORES BARROSOESKA DO [facility] 10-02-2024 05:00-0400 Heart rate 116 /min DELORES DURESKA DO [facility] 10-02-2024 05:00-0400 Systolic Blood Pressure Non-Invasive 108 mm[Hg] DELORES DURESKA DO [facility] 10-02-2024 04:00-0400 Diastolic Blood Pressure Non-Invasive 70 mm[Hg] DELORES DURESKA DO [facility] 10-02-2024 04:00-0400 Heart rate 125 /min DELORES DURESKA DO [facility] 10-02-2024 04:00-0400 Systolic Blood Pressure Non-Invasive 101 mm[Hg] DELORES DURESKA DO [facility] 10-02-2024 02:31-0400 Body weight 143 kg DELORES DURESKA DO [facility] 10-02-2024 02:15-0400 Diastolic Blood Pressure Non-Invasive 90 mm[Hg] DELORES DURESKA DO [facility] [facility] 10[facility]-2024 02:15-0400 Heart rate 120 /min DELORES DURESKA DO [facility] 10-02-2024 02:15-0400 Respiratory rate 18 /min DELORES DURESKA DO [facility] 10-02-2024 02:15-0400 Systolic Blood Pressure Non-Invasive 106 mm[Hg] DELORES DURESKA DO [facility] 10-02-2024 00:27-0400 Body temperature 98.06 [degF] DELORES DURESKA DO [facility] 02-01-2024 16:08-0400 Heart rate 72 /min CINDY FLORES MD [facility] 02-01-2024 15:25-0400 Heart rate 68 /min CINDY FLORES MD [facility] 02-01-2024 15:25-0400 Respiratory rate 18 /min CINDY FLORES MD [facility] 02-01-2024 14:44-0400 Body temperature 98.6 [degF] CINDY FLORES MD [facility] 02-01-2024 14:44-0400 Diastolic Blood Pressure Non-Invasive 82 mm[Hg] CINDY FLORES MD [facility] 02-01-2024 14:44-0400 Heart rate 72 /min CINDY FLORES MD [facility] 02-01-2024 14:44-0400 Respiratory rate 18 /min CINDY FLORES MD [facility] 02-01-2024 14:44-0400 Systolic Blood Pressure Non-Invasive 119 mm[Hg] CINDY FLORES MD [facility] 02-01-2024 11:12-0400 Body temperature 98.24 [degF] CINDY FLORES MD [facility] 02-01-2024 11:12-0400 Diastolic Blood Pressure Non-Invasive 72 mm[Hg] CINDY FLORES MD [facility] 02-01-2024 11:12-0400 Heart rate 82 /min CINDY FLORES MD [facility] 02-01-2024 11:12-0400 Reason For Taking VItal Signs CINDY FLORES MD [facility] 02-01-2024 11:12-0400 Respiratory rate 18 /min CINDY FLORES MD [facility] 02-01-2024 11:12-0400 Systolic Blood Pressure Non-Invasive 101 mm[Hg] CINDY FLORES MD [facility] 02-01-2024 09:16-0400 Heart rate 79 /min CINDY FLORES MD [facility] 02-01-2024 09:04-0400 Blood Pressure Cuff Size CINDY FLORES MD [facility] 02-01-2024 09:04-0400 Blood Pressure Location CINDY FLORES MD [facility] 02-01-2024 09:04-0400 Blood Pressure Method CINDY FLORES MD [facility] 02-01-2024 09:04-0400 Body temperature 98.96 [degF] CINDY FLORES MD [facility] 02-01-2024 09:04-0400 Diastolic Blood Pressure Non-Invasive 64 mm[Hg] CINDY FLORES MD [facility] 02-01-2024 09:04-0400 Heart rate 84 /min CINDY FLORES MD [facility] 02-01-2024 09:04-0400 Reason For Taking VItal Signs CINDY FLORES MD [facility] 02-01-2024 09:04-0400 Systolic Blood Pressure Non-Invasive 105 mm[Hg] CINDY FLORES MD [facility] 02-01-2024 07:04-0400 Heart rate 60 /min CINDY FLORES MD [facility] 02-01-2024 03:35-0400 Heart rate 80 /min CINDY FLORES MD [facility] 02-01-2024 03:35-0400 Mean blood pressure 73 mm[Hg] CINDY FLORES MD [facility] 02-01-2024 03:35-0400 Reason For Taking VItal Signs CINDY FLORES MD [facility] 01-31-2024 23:23-0400 Heart rate 84 /min CINDY FLORES MD [facility] 01-31-2024 23:23-0400 Mean blood pressure 74 mm[Hg] CINDY FLORES MD [facility] 01-31-2024 18:38-0400 Mean blood pressure 79 mm[Hg] CINDY FLORES MD [facility] 01-31-2024 02:56-0400 Body height 175 cm CINDY FLORES MD [facility] 01-31-2024 02:56-0400 Body weight 149.1 kg CINDY FLORES MD [facility] 01-31-2024 02:56-0400 Body weight 48.69 kg/m2 CINDY FLORES MD [facility] 01-31-2024 01:18-[address] SAMY JONES MD [facility] 01-31-2024 01:18-[address] SAMY JONES MD [facility] 01-31-2024 01:18-0400 Diastolic Blood Pressure Non-Invasive 71 mm[Hg] DR SAMY JONES MD [facility] 01-31-2024 01:18-0400 Heart rate 90 /min DR SAMY JONES MD [facility] 01-31-2024 01:18-0400 Mean blood pressure 82 mm[Hg] DR SAMY JONES MD [facility] 01-31-2024 01:18-0400 Reason For Taking VItal Signs DR SAMY JONES MD [facility] 01-31-2024 01:18-0400 Respiratory rate 18 /min DR SAMY JONES MD [facility] 01-31-2024 01:18-0400 Systolic Blood Pressure Non-Invasive 111 mm[Hg] DR SAMY JONES MD [facility] 01-31-2024 01:07-[address] SAMY JONES MD [facility] 01-31-2024 01:07-[address] SAMY JONES MD [facility] 01-31-2024 01:07-0400 Diastolic Blood Pressure Non-Invasive 61 mm[Hg] DR SAMY JONES MD [facility] 01-31-2024 01:07-0400 Heart rate 85 /min DR SAMY JONES MD [facility] 01-31-2024 01:07-0400 Mean blood pressure 71 mm[Hg] DR SAMY JONES MD [facility] 01-31-2024 01:07-0400 Reason For Taking VItal Signs DR SAMY JONES MD [facility] 01-31-2024 01:07-0400 Respiratory rate 12 /min DR SAMY JONES MD [facility] 01-31-2024 01:07-0400 Systolic Blood Pressure Non-Invasive 90 mm[Hg] DR SAMY JONES MD [facility] 01-31-2024 00:58-[address] SAMY JONES MD [facility] 01-31-2024 00:58-[address] SAMY JONES MD [facility] 01-31-2024 00:58-0400 Diastolic Blood Pressure Non-Invasive 64 mm[Hg] DR SAMY JONES MD [facility] 01-31-2024 00:58-0400 Heart rate 89 /min DR SAMY JONES MD [facility] 01-31-2024 00:58-0400 Mean blood pressure 76 mm[Hg] DR SAMY JONES MD [facility] 01-31-2024 00:58-0400 Reason For Taking VItal Signs DR SAMY JONES MD [facility] 01-31-2024 00:58-0400 Respiratory rate 13 /min DR SAMY JONES MD [facility] 01-31-2024 00:58-0400 Systolic Blood Pressure Non-Invasive 97 mm[Hg] DR SAMY JONES MD [facility] 01-30-2024 20:22-0400 SaO2% (BldA) [Mass fraction] 88.8 % DR SAMY JONES MD [facility] 01-30-2024 20:15-0400 Body height 175.[address] SAMY JONES MD [facility] 01-30-2024 20:15-0400 Body temperature 99.32 [degF] DR SAMY JONES MD [facility] 01-30-2024 20:15-0400 Body weight 145.[address] SAMY JONES MD [facility] 01-30-2024 20:15-0400 Heart rate 133 /min DR SAMY JONES MD [facility] 08-09-2023 21:07-0400 Blood Pressure Cuff Size DR OLLIE BROOKE MD [facility] 08-09-2023 21:07-[address] OLLIE BROOKE MD [facility] 08-09-2023 21:07-[address] OLLIE BROOKE MD [facility] 08-09-2023 21:07-0400 Body height 177.[address] OLLIE BROOKE MD [facility] 08-09-2023 21:07-0400 Body temperature 96.98 [degF] DR OLLIE BROKOE MD [facility] 08-09-2023 21:07-0400 Body weight 155.[address] OLLIE BROOKE MD [facility] 08-09-2023 21:07-0400 Diastolic Blood Pressure Non-Invasive 78 mm[Hg] DR OLLIE BROOKE MD [facility] 08-09-2023 21:07-0400 Heart rate 70 /min DR OLLIE BROOKE MD [facility] 08-09-2023 21:07-0400 Reason For Taking VItal Signs DR OLLIE BROOKE MD [facility] 08-09-2023 21:07-0400 Respiratory rate 22 /min DR OLLIE BROOKE MD [facility] 08-09-2023 21:07-0400 Systolic Blood Pressure Non-Invasive 121 mm[Hg] DR OLLIE BROOKE MD [facility] 06-13-2023 01:18-0500 Diastolic Blood Pressure Non-Invasive 78 mm[Hg] DEMI HUSTON MD [facility] 06-13-2023 01:18-0500 Heart rate 80 /min EDMI HUSTON MD [facility] 06-13-2023 01:18-0500 Respiratory rate 18 /min DEMI HUSTON MD [facility] 06-13-2023 01:18-0500 Systolic Blood Pressure Non-Invasive 142 mm[Hg] DEMI HUSTON MD [facility] 06-13-2023 00:35-0500 Heart rate 74 /min DEMI HUSTON MD [facility] 06-13-2023 00:35-0500 Respiratory rate 20 /min DEMI HUSTON MD [facility] 06-13-2023 00:03-0500 Body temperature 97.7 [degF] DEMI HUSTON MD [facility] 06-13-2023 00:03-0500 Diastolic Blood Pressure Non-Invasive 84 mm[Hg] DEMI HUSTON MD [facility] 06-13-2023 00:03-0500 Heart rate 67 /min DEMI HUSTON MD [facility] 06-13-2023 00:03-0500 Respiratory rate 20 /min DEMI HUSTON MD [facility] 06-13-2023 00:03-0500 Systolic Blood Pressure Non-Invasive 153 mm[Hg] DEMI HUSTON MD [facility] 06-09-2023 21:35-0500 Heart rate 60 /min MOY WATTS MD [facility] 06-09-2023 21:35-0500 Reason For Taking VItal Signs MOY WATTS MD [address] 06-09-2023 21:35-0500 Respiratory rate 18 /min MOY WATTS MD [address] 06-09-2023 19:40-0500 Blood Pressure Cuff Size MOY WATTS MD [address] 06-09-2023 19:40-0500 Blood Pressure Location MOY WATTS MD [address] 06-09-2023 19:40-0500 Blood Pressure Method MOY WATTS MD [address] 06-09-2023 19:40-0500 Body temperature 98.24 [degF] MOY WATTS MD [address] 06-09-2023 19:40-0500 Diastolic Blood Pressure Non-Invasive 66 mm[Hg] MOY WATTS MD [address] 06-09-2023 19:40-0500 Heart rate 63 /min MOY WATTS MD [address] 06-09-2023 19:40-0500 Reason For Taking VItal Signs MOY WATTS MD [address] 06-09-2023 19:40-0500 Respiratory rate 18 /min MOY WATTS MD [address] [place] [address] 06-09-2023 19:40-0500 Systolic Blood Pressure Non-Invasive 112 mm[Hg] MOY WATTS MD [address] [place] [address] 06-09-2023 19:29-0500 Heart rate 63 /min MOY WATTS MD [address] [place] [address] 06-09-2023 16:56-0500 Heart rate 66 /min MOY WATTS MD [address] [place] [address] 06-09-2023 16:04-0500 Blood Pressure Cuff Size MOY WATTS MD [address] [place] [address] 06-09-2023 16:04-0500 Blood Pressure Location MOY WATTS MD [address] [place] [address] 06-09-2023 16:04-0500 Blood Pressure Method MOY WATTS MD [address] [place] [address] 06-09-2023 16:04-0500 Body temperature 97.88 [degF] MOY WATTS MD [address] [place] [address] 06-09-2023 16:04-0500 Diastolic Blood Pressure Non-Invasive 78 mm[Hg] MOY WATTS MD [address] [place] [address] 06-09-2023 16:04-0500 Reason For Taking VItal Signs MOY WATTS MD [address] [place] [address] 06-09-2023 16:04-0500 Respiratory rate 18 /min MOY WATTS MD [address] [place] [address] 06-09-2023 16:04-0500 Systolic Blood Pressure Non-Invasive 138 mm[Hg] MOY WATTS MD [address] [place] [address] 06-09-2023 11:17-0500 Blood Pressure Cuff Size MOY WATTS MD [address] [place] [address] 06-09-2023 11:17-0500 Blood Pressure Location MOY WATTS MD [address] [place] [address] 06-09-2023 11:17-0500 Blood Pressure Method MOY WATTS MD [address] [place] [address] 06-09-2023 11:17-0500 Body temperature 97.88 [degF] MOY WATTS MD [address] [place] [address] 06-09-2023 11:17-0500 Diastolic Blood Pressure Non-Invasive 64 mm[Hg] MOY WATTS MD [address] [place] [address] 06-09-2023 11:17-0500 Systolic Blood Pressure Non-Invasive 126 mm[Hg] MOY WATTS MD [address] [place] [address] 06-09-2023 08:54-0500 Heart rate 66 /min MOY WATTS MD [address] [place] [address] 06-08-2023 23:49-0500 Mean blood pressure 77 mm[Hg] MOY WATTS MD [address] [place] [address] 06-08-2023 17:50-0500 Heart rate 65 /min MOY WATTS MD [address] [place] [address] 06-08-2023 14:06-0500 Heart rate 58 /min MOY WATTS MD [address] [place] [address] 06-08-2023 07:05-0500 Mean blood pressure 90 mm[Hg] MOY WATTS MD [address] [place] [address] 06-07-2023 13:36-0500 Body height 176 cm MOY WATTS MD [facility] 06-07-2023 13:36-0500 Body weight 152.9 kg MOY WATTS MD [facility] 06-07-2023 13:36-0500 Body weight 49.36 kg/m2 MOY WATTS MD [facility] 05-05-2023 20:50-0500 Diastolic Blood Pressure Non-Invasive 79 mm[Hg] DEMI HUSTON MD [facility] 05-05-2023 20:50-0500 Heart rate 84 /min DEMI HUSTON MD [facility] 05-05-2023 20:50-0500 Respiratory rate 20 /min DEMI HUSTON MD [facility] 05-05-2023 20:50-0500 Systolic Blood Pressure Non-Invasive 132 mm[Hg] DEMI HUSTON MD [facility] 05-05-2023 17:16-0500 Body height 175.3 cm DEMI HUSTON MD [facility] 05-05-2023 17:16-0500 Body temperature 97.88 [degF] DEMI HUSTON MD [facility] 05-05-2023 17:16-0500 Body weight 144.4 kg DEMI HUSTON MD [facility] 05-05-2023 17:16-0500 Diastolic Blood Pressure Non-Invasive 88 mm[Hg] DEMI HUSTON MD [facility] 05-05-2023 17:16-0500 Heart rate 68 /min DEMI HUSTON MD [facility] 05-05-2023 17:16-0500 Respiratory rate 20 /min DEMI HUSTON MD [facility] 05-05-2023 17:16-0500 Systolic Blood Pressure Non-Invasive 142 mm[Hg] DEMI HUSTON MD [facility] 02-12-2023 07:06-0400 Body height 175.26 cm [facility] 02-12-2023 07:06-0400 Body mass index (BMI) [Ratio] 49.5 kg/m2 [facility] 02-12-2023 07:06-0400 Body temperature 97.8 [degF] [facility] 02-12-2023 07:06-0400 Body weight 152.1 kg [facility] 02-12-2023 07:06-0400 Diastolic blood pressure 101 mm[Hg] [facility] 02-12-2023 07:06-0400 Heart rate 98 /min [facility] 02-12-2023 07:06-0400 Respiratory rate 16 /min [facility] 02-12-2023 07:06-0400 SaO2% (BldA) [Mass fraction] 95 % [facility] 02-12-2023 07:06-0400 Systolic blood pressure 132 mm[Hg] [facility] 12-23-2022 07:51-0400 Diastolic Blood Pressure Non-Invasive 68 1 MOY WATTS MD [facility] 12-23-2022 07:51-0400 Heart rate 61 /min MOY WATTS MD [facility] 12-23-2022 07:51-0400 Respiratory rate 12 /min MOY WATTS MD [facility] 12-23-2022 07:51-0400 Systolic Blood Pressure Non-Invasive 106 1 MOY WATTS MD [facility] 12-23-2022 07:39-0400 Diastolic Blood Pressure Non-Invasive 60 1 MOY WATTS MD [facility] 12-23-2022 07:39-0400 Heart rate 64 /min MOY WATTS MD [facility] 12-23-2022 07:39-0400 Respiratory rate 20 /min MOY WATTS MD [address] 12-23-2022 07:39-0400 Systolic Blood Pressure Non-Invasive 97 1 MOY WATTS MD [facility] 12-23-2022 07:34-0400 Diastolic Blood Pressure Non-Invasive 59 1 MOY WATTS MD [facility] 12-23-2022 07:34-0400 Heart rate 62 /min MOY WATTS MD [facility] 12-23-2022 07:34-0400 Respiratory rate 16 /min MOY WATTS MD [facility] 12-23-2022 07:34-0400 Systolic Blood Pressure Non-Invasive 74 1 MOY WATTS MD [facility] 12-23-2022 07:24-0400 Body temperature 97.34 [degF] MOY WATTS MD [address] [place] [address] 12-23-2022 07:20-0400 Heart rate 73 /min MOY WATTS MD [facility] 12-23-2022 07:20-0400 Respiratory Rate - Anes 22 br/min MOY WATTS MD [facility] 12-23-2022 07:15-0400 Heart rate 91 /min MOY WATTS MD [facility] 12-23-2022 07:15-0400 Respiratory Rate - Anes 18 br/min MOY WATTS MD [facility] 12-23-2022 06:37-0400 Body height 175.3 cm MOY WATTS MD [facility] 12-23-2022 06:34-0400 Body height 175.3 cm MOY WATTS MD [facility] 12-23-2022 06:34-0400 Body temperature 95.54 [degF] MOY WATTS MD [facility] 12-23-2022 06:34-0400 Body weight 144 kg MOY WATTS MD [facility] 10-27-2022 06:49-0400 Body temperature 97.7 [degF] DR OLLIE BROOKE MD [facility] 10-27-2022 06:49-0400 Diastolic Blood Pressure Non-Invasive [address] OLLIE BROOKE MD [facility] 10-27-2022 06:49-0400 Heart rate 103 /min DR OLLIE BROOKE MD [facility] 10-27-2022 06:49-0400 Respiratory rate 22 /min DR OLLIE BROOKE MD [facility] 10-27-2022 06:49-0400 Systolic Blood Pressure Non-Invasive [address] OLLIE BROOKE MD [facility] 10-27-2022 06:14-0400 Body temperature 98.06 [degF] DR OLLIE BROOKE MD [facility] 10-27-2022 06:14-0400 Diastolic Blood Pressure Non-Invasive [address] OLLIE BROOKE MD [facility] 10-27-2022 06:14-0400 Heart rate 105 /min DR OLLIE BROOKE MD [facility] 10-27-2022 06:14-0400 Respiratory rate 22 /min DR OLLIE BROOKE MD [facility] 10-27-2022 06:14-0400 Systolic Blood Pressure Non-Invasive [address] OLLIE BROOKE MD [facility] 10-27-2022 05:05-0400 Body height 175.[address] OLLIE BROOKE MD [facility] 10-27-2022 05:05-0400 Body temperature 98.06 [degF] DR OLLIE BROOKE MD [facility] 10-27-2022 05:05-0400 Body weight [address] OLLIE BROOKE MD [facility] 10-27-2022 05:05-0400 Diastolic Blood Pressure Non-Invasive [address] OLLIE BROOKE MD [facility] 10-27-2022 05:05-0400 Heart rate 88 /min DR OLLIE BROOKE MD [facility] 10-27-2022 05:05-0400 Respiratory rate 22 /min DR OLLIE BROOKE MD [facility] 10-27-2022 05:05-0400 Systolic Blood Pressure Non-Invasive [address] OLLIE BROOKE MD [facility] 10-25-2022 01:00-0400 Heart rate 99 /min DEMI HUSTON MD [facility] 10-25-2022 01:00-0400 Systolic Blood Pressure Non-Invasive 139 1 DEMI HUSTON MD [facility] 10-25-2022 00:00-0400 Diastolic Blood Pressure Non-Invasive 94 1 DEMI HUSTON MD [facility] 10-25-2022 00:00-0400 Heart rate 102 /min DEMI HUSTON MD [facility] 10-25-2022 00:00-0400 Respiratory rate 18 /min DEMI HUSTON MD [facility] 10-25-2022 00:00-0400 Systolic Blood Pressure Non-Invasive 132 1 DEMI HUSTON MD [facility] 10-24-2022 23:21-0400 Body height 175.3 cm DEMI HUSTON MD [facility] 10-24-2022 23:21-0400 Body temperature 98.24 [degF] DEMI HUSTON MD [facility] 10-24-2022 23:21-0400 Body weight 139 kg DEMI HUSTON MD [facility] 10-24-2022 23:21-0400 Diastolic Blood Pressure Non-Invasive 99 1 DEMI HUSTON MD [facility] 10-24-2022 23:21-0400 Heart rate 105 /min DEMI HUSTON MD [facility] 10-24-2022 23:21-0400 Respiratory rate 19 /min DEMI HUSTON MD [facility] 10-24-2022 23:21-0400 Systolic Blood Pressure Non-Invasive 146 1 DEMI HUSTON MD [facility] 10-23-2022 10:51-0400 Diastolic blood pressure 76 mm[Hg] [facility] 10-23-2022 10:51-0400 Heart rate 73 /min [facility] 10-23-2022 10:51-0400 Respiratory rate 15 /min [facility] 10-23-2022 10:51-0400 SaO2% (BldA) [Mass fraction] 98 % [facility] 10-23-2022 10:51-0400 Systolic blood pressure 148 mm[Hg] [facility] 10-23-2022 05:58-0400 Body height 175.26 cm [facility] 10-23-2022 05:58-0400 Body mass index (BMI) [Ratio] 47.7 kg/m2 [facility] 10-23-2022 05:58-0400 Body temperature 97.6 [degF] [facility] 10-23-2022 05:58-0400 Body weight 146.8 kg [facility] 07-15-2022 21:40-0500 Diastolic Blood Pressure Non-Invasive 85 1 JEREMIE MCCORMACK MD [facility] 07-15-2022 21:40-0500 Heart rate 72 /min JEREMIE MCCORMACK MD [facility] 07-15-2022 21:40-0500 Respiratory rate 18 /min JEREMIE MCCORMACK MD [facility] 07-15-2022 21:40-0500 Systolic Blood Pressure Non-Invasive 148 1 JEREMIE MCCORMACK MD [facility] 07-15-2022 21:10-0500 Reason For Taking VItal Signs JEREMIE MCCORMACK MD [facility] 07-15-2022 20:42-0500 Body temperature 98.06 [degF] JEREMIE MCCORMACK MD [facility] 07-15-2022 20:42-0500 Diastolic Blood Pressure Non-Invasive 95 1 JEREMIE MCCORMACK MD [facility] 07-15-2022 20:42-0500 Heart rate 81 /min JEREMIE MCCORMACK MD [facility] 07-15-2022 20:42-0500 Respiratory rate 18 /min JEREMIE MCCORMACK MD [facility] 07-15-2022 20:42-0500 Systolic Blood Pressure Non-Invasive 149 1 JEREMIE MCCORMACK MD [facility] 07-11-2022 08:21-0500 Body height 175.3 cm MALORIE PEGUERO MD [facility] 07-11-2022 08:21-0500 Body temperature 97.7 [degF] MALORIE PEGUERO MD [facility] 07-11-2022 08:21-0500 Body weight 148.6 kg MALORIE PEGUERO MD [facility] 07-11-2022 08:21-0500 Diastolic Blood Pressure Non-Invasive 80 1 MALORIE PEGUERO MD [facility] 07-11-2022 08:21-0500 Heart rate 88 /min MALORIE PEGUERO MD [facility] 07-11-2022 08:21-0500 Respiratory rate 24 /min MALORIE PEGUERO MD [facility] 07-11-2022 08:21-0500 Systolic Blood Pressure Non-Invasive 150 1 MALORIE PEGUERO MD [facility] Encounters Encounter Date Encounter Type Care Provider Facility Start: 12-29-2024 Non-patient / Non-visit Dr. Tricia Carvalho MD -[facility] Work Phone: Start: 12-28-2024 ambulatory Keagan Jamil ty:[facility] Start: 12-28-2024 End: 12-29-2024 Evaluation and management of inpatient Dr. Keagan Rowe DO -[facility] Work Phone: Start: 12-23-2024 End: 12-26-2024 Evaluation and management of inpatient DR SONNY MAX MD [facility] Start: 12-21-2024 Non-patient / Non-visit Dr. Farzad Camilo MD -[facility] Work Phone: Start: 12-20-2024 End: 12-21-2024 ambulatory [facility] Facility:[facility] Start: 12-20-2024 End: 12-21-2024 Evaluation and management of inpatient Dr. Yaz Dee MD -[facility] Work Phone: Start: 12-20-2024 End: 12-21-2024 observation encounter Girma IBARRA Work Phone: -[facility] Start: 12-20-2024 [facility] Facility: [facility] Start: 12-20-2024 Non-patient / Non-visit Dr. Austin Estrada MD -[facility] Start: 12-19-2024 End: 12-20-2024 Emergency department patient visit Girma IBARRA Work Phone: -Emergency Department Work Phone: Start: 12-10-2024 End: 12-13-2024 Evaluation and management of inpatient DELORES MURO DO [facility] Start: 12-04-2024 End: 12-04-2024 Emergency department patient visit JEREMIE MCCORMACK MD [facility] Start: 11-24-2024 End: 11-28-2024 Evaluation and management of inpatient DR SONNY MAX MD [facility] Start: 11-24-2024 End: 11-24-2024 Emergency department patient visit CIRILO PATEL DO [facility] Start: 11-06-2024 ambulatory Dolly Carreoni ty:[facility] Start: 11-06-[address] Dolly Marino MD -[facility] Start: 11-04-2024 End: 11-04-2024 ambulatory Girma Correa [facility] Work Phone: -[facility] Start: 11-04-2024 End: 11-04-[address] Dolly Marino MD -[facility] Start: 11-04-[address] Dolly Marino MD -[facility] Start: 11-04-2024 End: 11-04-2024 ambulatory Dolly HOLCOMB Facility:[facility] Start: 10-30-2024 ambulatory Dolly Carreoni ty:[facility] Start: 10-30-[address] Dolly Marino MD -[facility] Start: 10-28-2024 ambulatory Dolly HOLCOMB Facili ty:[facility] Start: 10-28-[address] Dolly Marino MD -[facility] Start: 10-24-2024 ambulatory Dolly Siddiqui ty:[facility] Start: 10-24-[address] Dolly Marino MD -[facility] Start: 10-16-2024 End: 10-23-2024 Evaluation and management of inpatient NANI VIVEROS DO [facility] Start: 10-16-2024 End: 10-16-2024 Emergency department patient visit JAKE Guo [facility]WELL [facility] Start: 10-02-2024 End: 10-04-2024 Evaluation and management of inpatient DR ROBERT SCHMITZ MD [facility] Start: 10-02-2024 End: 10-02-2024 Emergency department patient visit DELORES JNIA DO [facility] Start: 09-05-2024 ambulatory GIRMA CORREA PSYCHIATRIC CLINICAL NURSE SPECIALIST-CAR [facility]IFTER Facility:[facility] Start: 08-29-2024 End: 08-29-2024 Emergency department patient visit GIRMA CORREA PSYCHIATRIC CLINICAL NURSE SPECIALIST-CAR SHIFTER Facility:[facility] Start: 08-27-2024 End: 08-27-2024 ambulatory GIRMA CORREA PSYCHIATRIC CLINICAL NURSE SPECIALIST-CAR SHIFTER [facility] Start: 08-13-2024 End: 08-13-2024 Emergency department patient visit DR WILNER JOE MD Facility:[facility] Start: 05-14-2024 End: 05-14-2024 ambulatory GIRMA CORREA PSYCHIATRIC CLINICAL NURSE SPECIALIST-[facility]TER [facility] Start: 05-14-2024 End: 05-14-2024 Patient encounter procedure GIRMA CORREA PSYCHIATRIC CLINICAL NURSE SPECIALIST-CAR SHIFTER [facility] Start: 03-25-2024 ambulatory GIRMA CORREA PSYCHIATRIC CLINICAL NURSE SPECIALIST-CAR SHIFTER Facility:[facility] Start: 03-25-2024 End: 03-29-2024 ambulatory GIRMA CORREA PSYCHIATRIC CLINICAL NURSE SPECIALIST-CAR SHIFTER [facility] Start: 03-25-2024 End: 03-29-2024 Outreach Lab HELEN YANES PSYCHIATRIC CLINICAL NURSE SPECIALIST-CAR SHIFTER [facility] Start: 02-16-2024 End: 02-16-2024 ambulatory GIRMA CORREA PSYCHIATRIC CLINICAL NURSE SPECIALIST-CAR SHIFTER Facility:[facility] Start: 02-16-2024 End: 02-16-2024 Patient encounter procedure GIRMA CORREA PSYCHIATRIC CLINICAL NURSE SPECIALIST-CAR SHIFTER [facility] Start: 02-12-2024 End: 02-12-2024 ambulatory GIRMA CORREA PSYCHIATRIC CLINICAL NURSE SPECIALIST-CAR SHIFTER Facility:[facility] Start: 02-12-2024 End: 02-12-2024 Patient encounter procedure GIRMA CORREA PSYCHIATRIC CLINICAL NURSE SPECIALIST-CAR SHIFTER [facility] Start: 01-31-2024 End: 02-01-2024 Evaluation and management of inpatient GIRMA CORREA Facility:[facility] Start: 01-30-2024 End: 01-31-2024 Emergency department patient visit DR SAMY JONES MD [facility] Start: 10-11-2023 End: 10-11-2023 ambulatory [facility] Start: 08-22-2023 End: 08-22-2023 ambulatory GIRMA CORREA Facility:[facility] Start: 08-22-2023 End: 08-22-2023 Patient encounter procedure GIRMA CORREA PSYCHIATRIC CLINICAL NURSE SPECIALIST-CAR SH[employer]TER [facility] Start: 08-09-2023 End: 08-09-2023 Emergency department patient visit DR OLLIE BROOKE MD [facility] Start: 08-08-2023 End: 08-12-2023 ambulatory GIRMA CORREA Facility:[facility] Start: 08-08-2023 End: 08-12-2023 Outreach Lab GIRMA CORREA PSYCHIATRIC CLINICAL NURSE SPECIALIST-CAR SHIFTER [facility] Start: 08-08-2023 End: 08-08-2023 ambulatory GIRMA CORREA Facility:[facility] Start: 06-13-2023 End: 06-13-2023 Emergency department patient visit DEMI HUSTON MD [facility] Start: 06-07-2023 End: 06-09-2023 Evaluation and management of inpatient MOY WATTS MD [facility] Start: 05-05-2023 End: 05-05-2023 Emergency department patient visit DEMI HUSTON MD [facility] Start: 05-03-2023 ambulatory JAD Coombs Facility:[facility] Start: 04-03-2023 End: 04-03-2023 ambulatory GIRMA CORREA Facility:[facility] Start: 04-03-2023 End: 04-03-2023 Patient encounter procedure JONNY HOFF PSYCHIATRIC CLINICAL NURSE SPECIALIST-CAR SHIFTER [facility] Start: 03-22-2023 End: 03-22-2023 ambulatory GIRMA CORREA Facility:[facility] Start: 03-14-2023 ambulatory GIRMA LORSON Facility :[facility] Start: 02-22-2023 ambulatory GIRMA CORREA Facility :[facility] Start: 02-12-2023 End: 02-12-2023 Emergency department patient visit [facility] Work Phone: Start: 02-01-2023 End: 02-01-2023 Patient encounter procedure GIRMA CORREA PSYCHIATRIC CLINICAL NURSE SPECIALIST-CAR SHIFTER [facility] Start: 12-23-2022 End: 12-23-2022 Minor Procedure MOY WATTS MD [facility] Start: 11-11-2022 End: 11-11-2022 Patient encounter procedure MOY WATTS MD [facility] Start: 10-27-2022 End: 10-27-2022 Emergency department patient visit DR OLLIE BROOKE MD [facility] Start: 10-24-2022 End: 10-25-2022 Emergency department patient visit DEMI HUSTON MD [facility] Start: 10-23-2022 End: 10-23-2022 Emergency department patient visit [facility] Start: 07-15-2022 End: 07-15-2022 Emergency department patient visit JEREMIE MCCORMACK MD [facility] Start: 07-11-2022 End: 07-11-2022 Emergency department patient visit MALORIE PEGUERO MD [facility] Start: 07-05-2022 End: 07-05-2022 ambulatory [facility] Start: 04-12-2022 End: 04-12-2022 ambulatory [facility] Start: 03-11-2022 ambulatory [facility] Facility: [facility] Start: 01-12-2022 End: 01-12-2022 ambulatory [facility] Start: 08-24-2021 ambulatory [facility] Start: 08-17-2021 End: 08-18-2021 ambulatory [facility] Start: 08-02-2021 ambulatory [facility] Procedures Date Procedure Procedure Detail Performing Clinician Start: 12-29-2024 Estimated creatinine clearance Girma Correa [facility] Work Phone: Start: 12-28-2024 Serum inorganic phos phate measurement Girma Correa [facility] Work Phone: Start: 12-28-2024 Urnls dip stick/tabl et reagent auto microscopy Girma Correa [facility] Work Phone: Start: 12-27-2024 Plain chest X-ray Aura Correa [facility] Work Phone: Start: 12-27-2024 Estimated creatinine clearance Girma Correa [facility] Work Phone: Start: 12-21-2024 Estimated creatinine clearance Girma Correa [facility] Work Phone: Start: 12-20-2024 Estimated creatinine clearance Girma Correa [facility] Work Phone: Start: 12-20-2024 Plain x-ray of hand Gracie ky Correa [facility] Work Phone: Start: 12-20-2024 CT angiography of ch est with contrast Girma Correa [facility] Work Phone: Start: 12-19-2024 Plain chest X-ray Aura Correa [facility] Work Phone: Start: 12-19-2024 D-dimer assay, quantitative Girma Correa [facility] Work Phone: Comment on above: D-Dimer ELEVATED (>0 .49): Additional studies and clinicalassessments are indicated to conclude diagnosis of:Deep Vein Thrombosis (DVT) or Pulmonary Embolism (PE)CRITICAL VALUE CALLED TO [id number]/25/25 0020 Marquez Swain.RESULTS READ BACK BY SAME. Start: 12-19-2024 Estimated creatinine clearance Girma Correa [facility] Work Phone: Start: 10-28-2024 Vitamin D, 25-hydrox y measurement Girma Correa [facility] Work Phone: Comment on above: Vitamin D StatusDefi ciency: <20 ng/mL (50nmol/L)Insufficiency: 20-30 ng/mL (50-75 nmol/L)Sufficiency: 30-100 ng/mL (75-250 nmol/L)Toxicity: >100 ng/mL (>250 nmol/L) Start: 03-25-2024 Excision HELEN BALDERAS PSYCHIATRIC CLINICAL NURSE SPECIALIST-CAR SHIFTER Comment on above: excision of multilob ulated lipomatous mass right forearm Start: 01-31-2024 Echocardiography CHUN CORREA PSYCHIATRIC CLINICAL NURSE SPECIALIST-CAR SHIFTER Start: 02-12-2023 SARS-CoV-2 & FLU Ant igen (Rapid) Start: 02-12-2023 Viral antigen assay Start: 02-12-2023 Plain chest X-ray Start: 12-23-2022 Cardioversion JAD WATTS MD Start: 11-11-2022 Echocardiography JONNY KAVYA PSYCHIATRIC CLINICAL NURSE SPECIALIST-CAR SHIFTER Comment on above: 1. Left ventricle: T [...] Treatment Date Care Activity Detail Author Start: 12-29-2024 Patient discharge [facility] Start: 12-29-2024 [facility] Start: 12-28-2024 Referral to occupati onal therapist [facility] Start: 12-28-2024 Following clinical p athway protocol [facility] Start: 12-28-2024 Peripherally inserte d central catheter care [facility] Start: 12-28-2024 Ambulation without limitation [facility] Start: 12-28-2024 Assessment of risk o f venous thromboembolism [facility] Start: 12-28-2024 Care regimes management [facility] Start: 12-28-2024 Incentive spirometry [facility] Start: 12-28-2024 Inhalation therapy procedure [facility] Start: 12-28-2024 Insertion of cathete r into peripheral vein [facility] Start: 12-28-2024 Measuring intake and output [facility] Start: 12-28-2024 Notification of physician [facility] Start: 12-28-2024 Oxygen therapy [facility] Start: 12-28-2024 Providing care accor ding to standard [facility] Start: 12-28-2024 Referral to syrup maker [facility] Start: 12-28-2024 Referral to service [facility] Start: 12-28-2024 End: 12-28-2024 [facility] Start: 12-28-2024 Thyroid stimulating hormone measurement [facility] Start: 12-28-2024 Verification routine [facility] Start: 12-28-2024 Admission procedure [facility] Start: 12-28-2024 Hospital admission, emergency, from emergency room, medical nature [facility] Start: 12-28-2024 End: 12-28-2024 [facility] Start: 12-28-2024 Consultation [facility] Start: 12-21-2024 Oxygen therapy [facility] Start: 12-21-2024 Patient discharge [facility] Start: 12-21-2024 Inhalation therapy procedure [facility] Start: 12-20-2024 Assessment of risk o f venous thromboembolism [facility] Start: 12-20-2024 Care regimes management [facility] Start: 12-20-2024 Consultation [facility] Start: 12-20-2024 Elevation of affected extremity [facility] Start: 12-20-2024 Insertion of cathete r into peripheral vein [facility] Start: 12-20-2024 Measuring intake and output [facility] Start: 12-20-2024 Notification of physician [facility] Start: 12-20-2024 Providing care accor ding to standard [facility] Start: 12-20-2024 Provision of activity privileges [facility] Start: 12-20-2024 Referral to occupati onal therapist [facility] Start: 12-20-2024 Referral to service [facility] Start: 12-20-2024 End: 12-20-2024 [facility] Start: 12-20-2024 Following clinical p athway protocol [facility] Start: 12-20-2024 Verification routine [facility] Start: 12-20-2024 Admission procedure [facility] Start: 12-20-2024 Hospital admission, emergency, from emergency room, medical nature [facility] Start: 12-20-2024 Elevation of affected extremity [facility] Start: 12-20-2024 [facility] Start: 12-20-2024 [facility] Start: 12-20-2024 Patient referral to dietitian [facility] Start: 12-19-2024 [facility] Start: 10-23-2022 [facility] Bilirubin measurement, urine [facility] Hemoglobin [Presence] in Urine [facility] Magnesium measurement [facility] Measurement of keton es in urine using dipstick [facility] Microscopic urinalysis [facility] Patient Education [facility] Work Phone: Patient referral [facility] Work Phone: pH of Urine [facility] Specific gravity of Urine [facility] Troponin T.cardiac [ Mass/volume] in Serum or Plasma by High sensitivity method [facility] Urine blood test [facility] Urine dipstick for glucose [facility] Urine dipstick for l eukocyte esterase [facility] Urine dipstick for nitrite [facility] Urine dipstick for protein [facility] Urine examination [facility] Urine microscopy: ep ithelial cells [facility] Urine Microscopy: white cells [facility] Urobilinogen [Presence] in Urine [facility] Immunizations Immunization Date Immunization Notes Care Provider Cesia mazariegos 04-12-2022 influenza virus vaccine, unspecified formulation MOY WATTS MD [facility] Comment on above: Result Comment: 2023: VIS DATE: 01/01/2021 04-12-2022 pneumococcal conjugate vaccine, 13 valent MOY WATTS MD [facility] Comment on above: Result Comment: 2023: VIS DATE: 07/02/2021 09-11-2020 SARS-CoV-2 (COVID-19 ) mRNA-1273 vaccine MOY WATTS MD [facility] 08-14-2020 SARS-CoV-2 (COVID-19 ) mRNA-1273 vaccine MOY WATTS MD [facility] Payers Date Payer Category Payer Self-pay 2024 Medicaid [id number] 2024 Private Health Insurance 5e [id number] 2023 Medicaid [id number] 1971 Unknown [id number] 2.16.8 40.1.008450.3.579.2.1076 1971 Unknown [id number] 2.16. 840.1.749116.3.579.2.297 1971 Unknown [id number] 2.16.8 40.1.365703.3.579.2.627 1971 Unknown [id number] 2.16.8 40.1.057877.3.579.2.627 1971 Unknown [id number] 2.16.8 40.1.737583.3.579.2.627 1971 Unknown [id number] 2.16.8 40.1.922203.3.579.2.627 1971 Unknown [id number] 2.16.8 40.1.821401.3.579.2.627 1971 Unknown [id number] 2.16.8 40.1.187713.3.579.2.627 1971 Unknown [id number] 2.16.8 40.1.512912.3.579.2.7 1971 Unknown [id number] 2.16.8 40.1.411628.3.579.2.627 1971 Unknown [id number] 2.16.8 40.1.189817.3.579.2.7 1971 Unknown [id number] 2.16.8 40.1.828236.3.579.2.7 1971 Unknown [id number] 2.16.8 40.1.937526.3.579.2. 1971 Unknown [id number] 2.16.8 40.1.183062.3.579.2.627 1971 Unknown [id number] 2.16.8 40.1.695965.3.579.2.7 1971 Unknown [id number] 2.16.8 40.1.430740.3.579.2.627 1971 Unknown [id number] 2.16.8 40.1.311493.3.579.2.651 1971 Unknown [id number] 2.16. 840.1.566944.3.579.2.627 1971 Unknown [id number] 2.16. 840.1.028908.3.579.2.627 1971 Unknown [id number] 2.16. 840.1.744440.3.579.2.627 1971 Unknown [id number] 2.16.8 40.1.752324.3.579.2.627 1971 Unknown [id number] 2.16.8 40.1.869387.3.579.2.627 1971 Unknown [id number] 2.16.8 40.1.971958.3.579.2. 1971 Unknown [id number] 2.16.8 40.1.363254.3.579.2.7 1971 Unknown [id number] 2.16.8 40.1.635681.3.579.2. 1971 Unknown [id number] 2.16.8 40.1.677930.3.579.2.7 1971 Unknown [id number] 2.16.8 40.1.547597.3.579.2. 1971 Unknown [id number] 2.16.8 40.1.947047.3.579.2. 1971 Unknown [id number] 2.16.8 40.1.914238.3.579.2. 1971 Unknown [id number] 2.16.8 40.1.174613.3.579.2.627 1971 Unknown [id number] .16.8 40.1.248659.3.579.2. 1971 Unknown [id number] 2.16. 840.1.371497.3.579.2. 1971 Unknown [id number] 2.. 840.1.903933.3.579.2. 1971 Unknown [id number] .16. 840.1.525911.3.579.2. 1971 Unknown [id number] 2.16.8 40.1.515359.3.579.2. 1971 Unknown [id number] 2.16.8 40.1.574710.3.579.2.627 Unknown [id number] Unknown [id number] 2.16.8 40.1.302773.3.579.2.443 Unknown [id number] 2.16.8 40.1.748474.3.579.2.462 Unknown [id number] 2.16.8 40.1.378975.3.579.2.462 Unknown [id number] 2.16.8 40.1.072140.3.579.2.462 Unknown [id number] 2.16.8 40.1.992835.3.579.2.462 Unknown [id number] 2.16.8 40.1.361145.3.579.2.462 Unknown [id number] 2.16.8 40.1.340654.3.579.2.462 Unknown [id number] 2.16.8 40.1.021600.3.579.2.462 Unknown [id number] 2.16.8 40.1.378669.3.579.2.462 Unknown [id number] 2.16.8 40.1.530966.3.579.2.462 Unknown [id number] 2.16.8 40.1.969280.3.579.2.462 Unknown [id number] 2.16.8 40.1.539230.3.579.2.462 Unknown [id number] 2.16.8 40.1.042386.3.579.2.462 Unknown [id number] 2.16.8 40.1.638326.3.579.2.462 Unknown [id number] 2.16.8 40.1.452590.3.579.2.462 Unknown [id number] 2.16.8 40.1.786093.3.579.2.462 Unknown [id number] 2.16.8 40.1.036496.3.579.2.462 Social History Date Type Detail Facility Start: 07-11-2022 End: 12-28-2024 Tobacco smoking status Ex-smoker (finding) [facility] Start: 1970 Sex Assigned At Male [facility] Start: 10-23-2022 End: 02-12-2023 Tobacco smoking status NHIS Unknown if ever smoked [facility] Tobacco Nicotine Use: sn uff. Type: Oral (Snuff, Chew). [facility] Comment on above: using NicoDerm patch Stopped chewing snuf f October 2022 Tobacco smoking status [facility] Start: 06-07-2023 End: 08-08-2023 Tobacco smoking status Former smokeless tobacco user, quit more than 30 days ago [facility] Start: 07-11-2022 Sex Male (finding) [facility] Medical Equipment Procedure Code Equipment Code Equipment Origin al Text Equipment Identifier Dates See Instructions , 1 bottle of 100 Test once daily, # 1 EA, 11 Refill(s), Pharmacy: [facility], 177.8, cm, 11/28/23 13:54:00 EDT, Height, 151.4, kg, 11/28/23 13:54:00 EDT, Dosing Weight Start: 12-12-2023 See Instructions , qs 1 month supply Test once daily, # 1 EA, 11 Refill(s), Pharmacy: [facility], 177.8, cm, 11/28/23 13:54:00 EDT, Height, 151.4, kg, 11/28/23 13:54:00 EDT, Dosing Weight Start: 12-12-2023 See Instructions , 1 bottle of 100 Test once daily, # 1 EA, 11 Refill(s), Pharmacy: [facility], 177.8, cm, 11/28/23 13:54:00 EDT, Height, 151.4, kg, 11/28/23 13:54:00 EDT, Dosing Weight Start: 12-12-2023 See Instructions , qs 1 month supply Test once daily, # 1 EA, 11 Refill(s), Pharmacy: [facility], 177.8, cm, 11/28/23 13:54:00 EDT, Height, 151.4, kg, 11/28/23 13:54:00 EDT, Dosing Weight Start: 12-12-2023 See Instructions , 1 bottle of 100 Test once daily, # 1 EA, 11 Refill(s), Pharmacy: [facility], 177.8, cm, 11/28/23 13:54:00 EDT, Height, 151.4, kg, 11/28/23 13:54:00 EDT, Dosing Weight Start: 12-12-2023 See Instructions , qs 1 month supply Test once daily, # 1 EA, 11 Refill(s), Pharmacy: [facility], 177.8, cm, 11/28/23 13:54:00 EDT, Height, 151.4, kg, 11/28/23 13:54:00 EDT, Dosing Weight Start: 12-12-2023 See Instructions , 1 bottle of 100 Test once daily, # 1 EA, 11 Refill(s), Pharmacy: [facility], 177.8, cm, 11/28/23 13:54:00 EDT, Height, 151.4, kg, 11/28/23 13:54:00 EDT, Dosing Weight Start: 12-12-2023 See Instructions , qs 1 month supply Test once daily, # 1 EA, 11 Refill(s), Pharmacy: [facility], 177.8, cm, 11/28/23 13:54:00 EDT, Height, 151.4, kg, 11/28/23 13:54:00 EDT, Dosing Weight Start: 12-12-2023 See Instructions , 1 bottle of 100 Test once daily, # 1 EA, 11 Refill(s), Pharmacy: [facility], 177.8, cm, 11/28/23 13:54:00 EDT, Height, 151.4, kg, 11/28/23 13:54:00 EDT, Dosing Weight Start: 12-12-2023 See Instructions , qs 1 month supply Test once daily, # 1 EA, 11 Refill(s), Pharmacy: [facility], 177.8, cm, 11/28/23 13:54:00 EDT, Height, 151.4, kg, 11/28/23 13:54:00 EDT, Dosing Weight Start: 12-12-2023 See Instructions , 1 bottle of 100 Test once daily, # 1 EA, 11 Refill(s), Pharmacy: [facility], 177.8, cm, 11/28/23 13:54:00 EDT, Height, 151.4, kg, 11/28/23 13:54:00 EDT, Dosing Weight Start: 12-12-2023 See Instructions , qs 1 month supply Test once daily, # 1 EA, 11 Refill(s), Pharmacy: [facility], 177.8, cm, 11/28/23 13:54:00 EDT, Height, 151.4, kg, 11/28/23 13:54:00 EDT, Dosing Weight Start: 12-12-2023 Extremity Web Analyst al Fixator Application L Unknown 10/17/24 Unknown Unknown FDA Start: 10-17-2024 Extremity Web Analyst al Fixator Application L Unknown 10/17/24 Unknown Unknown FDA Start: 10-17-2024 Extremity Web Analyst al [employer] Application L Unknown 10/17/24 Unknown Unknown FDA Start: 10-17-2024 Extremity Web Analyst al [employer]ator Application L Unknown 10/17/24 Unknown Unknown FDA Start: 10-17-2024 Extremity Web Analyst al Fixator Application L Unknown 10/17/24 Unknown Unknown FDA Start: 10-17-2024 Extremity Web Analyst al [employer]ator Application L Unknown 10/17/24 Unknown Unknown FDA Start: 10-17-2024 Extremity Web Analyst al [employer]ator Application L Unknown 10/17/24 Unknown Unknown FDA Start: 10-17-2024 Extremity Web Analyst al Fixator Application L Unknown 10/17/24 Unknown Unknown FDA Start: 10-17-2024 Extremity Web Analyst al [employer]ator Application L Unknown 10/17/24 Unknown Unknown FDA Start: 10-17-2024 Extremity Web Analyst al [employer]ator Application L Unknown 10/17/24 Unknown Unknown FDA Start: 10-17-2024 Extremity Web Analyst al [employer]ator Application L Unknown 10/17/24 Unknown Unknown FDA Start: 10-17-2024 Extremity Web Analyst al [employer]ator Application L Unknown 10/17/24 Unknown Unknown FDA Start: 10-17-2024 Extremity Web Analyst al [employer]ator Application L Unknown 10/17/24 Unknown Unknown FDA Start: 10-17-2024 Extremity Web Analyst al [employer]ator Application L Unknown 10/17/24 Unknown Unknown FDA Start: 10-17-2024 Extremity Web Analyst al [employer]ator Application L Unknown 10/17/24 Unknown Unknown FDA Start: 10-17-2024 Extremity Web Analyst al [employer]ator Application L Unknown 10/17/24 Unknown Unknown FDA Start: 10-17-2024 Extremity Web Analyst al [employer]ator Application L Unknown 10/17/24 Unknown Unknown FDA Start: 10-17-2024 Extremity Web Analyst al [employer]ator Application L Unknown 10/17/24 Unknown Unknown FDA Start: 10-17-2024 Extremity Web Analyst al [employer]ator Application L Unknown 10/17/24 Unknown Unknown FDA Start: 10-17-2024 Extremity Web Analyst al [employer]ator Application L Unknown 10/17/24 Unknown Unknown FDA Start: 10-17-2024 Extremity Web Analyst al Fixator Application L Unknown 10/17/24 Unknown Unknown FDA Start: 10-17-2024 Extremity Web Analyst al [employer]ator Application L Unknown 10/17/24 Unknown Unknown FDA Start: 10-17-2024 Extremity Web Analyst al [employer]ator Application L Unknown 10/17/24 Unknown Unknown FDA Start: 10-17-2024 Extremity Web Analyst al [employer]ator Application L Unknown 10/17/24 Unknown Unknown FDA Start: 10-17-2024 Extremity Web Analyst al Fixator Application L Unknown 10/17/24 Unknown Unknown FDA Start: 10-17-2024 Extremity Web Analyst al Fixator Application L Unknown 10/17/24 Unknown Unknown FDA Start: 10-17-2024 Extremity Web Analyst al Fixator Application L Unknown 10/17/24 Unknown Unknown FDA Start: 10-17-2024 Extremity Web Analyst al Fixator Application L Unknown 10/17/24 Unknown Unknown FDA Start: 10-17-2024 Extremity Web Analyst al Fixator Application L Unknown 10/17/24 Unknown Unknown FDA Start: 10-17-2024 Extremity Web Analyst al Fixator Application L Unknown 10/17/24 Unknown Unknown FDA Start: 10-17-2024 Extremity Web Analyst al Fixator Application L Unknown 10/17/24 Unknown Unknown FDA Start: 10-17-2024 Extremity Web Analyst al [employer]ator Application L Unknown 10/17/24 Unknown Unknown FDA Start: 10-17-2024 Extremity Web Analyst al [employer]ator Application L Unknown 10/17/24 Unknown Unknown FDA Start: 10-17-2024 Extremity Web Analyst al [employer]ator Application L Unknown 10/17/24 Unknown Unknown FDA Start: 10-17-2024 Extremity Web Analyst al Fixator Application L Unknown 10/17/24 Unknown Unknown FDA Start: 10-17-2024 Extremity Web Analyst al [employer]ator Application L Unknown 10/17/24 Unknown Unknown FDA Start: 10-17-2024 Goals Date Patient Goal Desired Activity /State Functional Status Date Assessment Result Facility 12-29-2024 Functional status Stand and pivot [facility] Work Phone: 12-21-2024 Functional status Activity Abili ty Unable to Assess [facility] Work Phone: 10-04-2024 Functional Status Room located n ear nursing station, Door open, Bathroom light on, Non-Slip footwear, Room check performed [facility] 10-04-2024 Functional Status [facility] 10-04-2024 Functional Status [facility] 10-04-2024 Functional Status Breakfast Percent 80 [facility] 10-04-2024 Functional Status [facility] 10-03-2024 Functional Status Done [facility] 10-03-2024 Functional Status Sequential Com pression Device bilateral knee high removed/off [facility] 10-02-2024 Functional Status ID band on, Call device within reach, Bed in low position [facility] 02-01-2024 Functional Status Room check performed [facility] 02-01-2024 Functional Status [facility] 02-01-2024 Functional Status [facility] 02-01-2024 Functional Status Maintained [facility] 01-31-2024 Functional Status [facility] 01-31-2024 Functional Status 7pm-7am [facility] 01-31-2024 Functional Status Living Situati on Lives with family [facility] 01-31-2024 Functional Status Skin Care Prev entative Intervention(s) heel(s)s elevated, padded oxygen tubing, turn and position system [facility] 01-31-2024 Functional Status [facility] 01-31-2024 Functional Status Independent [facility] 01-30-2024 Functional Status Standard Safet y ID band on, Call device within reach, Bed in low position, Wheels locked, Upper/Half-Length side-rails up, personal items within reach, Bedside Cart Locked, Visitor at bedside [facility] 08-09-2023 Functional Status Awake, Resting [facility] 06-13-2023 Functional Status ID band on, Call device within reach [facility] 06-09-2023 Functional Status Room check performed [facility] 06-09-2023 Functional Status [facility] 06-09-2023 Functional Status [facility] 06-09-2023 Functional Status [facility] 06-08-2023 Functional Status Home independe ntly, Lives with significant other [facility] 06-08-2023 Functional Status Skin Care Prev entative Intervention(s) padded oxygen tubing [facility] 06-08-2023 Functional Status bilateral knee high removed/off [facility] 06-07-2023 Functional Status Sensory Deficits None [facility] 05-05-2023 Functional Status Assistive Device None A [facility] 05-05-2023 Functional Status Standard Safet y ID band on, Call device within reach, Bed in low position, Wheels locked, Visitor at bedside [facility] 12-23-2022 Functional Status Ambulating in room, Awake [facility] 12-23-2022 Functional Status Maintained Larry Hawthorne [facility] 10-27-2022 Functional Status Room check performed [facility] 10-27-2022 Functional Status Larry Hawthorne [facility] 10-25-2022 Functional Status Independent Larry [facility] 10-24-2022 Functional Status Standard Safet y ID band on, Call device within reach, Bed in low position, Wheels locked, Upper/Half-Length side-rails up, personal items within reach, Visitor at bedside [facility] 07-15-2022 Functional Status Room check performed [facility] 07-11-2022 Functional Status Up ad traci [facility] Mental Status Date Assessment Result Facility 12-29-2024 Cognitive function Voice/Name [facility] Work Phone: 12-28-2024 Cognitive function Awake;Alert;A ppropriate;Follo ws Commands [facility] Work Phone: 12-20-2024 Cognitive function Appropriate;Cooperativ e [facility] Work Phone: 12-19-2024 Cognitive function Voice/Name [facility] Work Phone: 10-04-2024 Mental Status Oriented x 4 [facility] 10-04-2024 Mental Status [facility] 10-04-2024 Mental Status [facility] 10-02-2024 Mental Status Orientation Oriented x 4 [facility] 02-01-2024 Mental Status Orientation Oriented x 4 [facility] 02-01-2024 Mental Status [facility] 01-31-2024 Mental Status [facility] 01-31-2024 Mental Status [facility] 01-30-2024 Mental Status Orientation Oriented x 4 [facility] 08-09-2023 Mental Status Oriented x 4 [facility] 06-13-2023 Mental Status Orientation Oriented x 4 [facility] 06-09-2023 Mental Status Oriented x 4 [facility] 06-09-2023 Mental Status [facility] 06[facility]09-[facility]23 [facility]05[facility]23 Mental Status Orientation Oriented x 4 [facility] 05-05-2023 Mental Status [facility] 12-23-2022 Mental Status Oriented x 4 [facility] 10-27-2022 Mental Status Orientation Oriented x 4 [facility] 10-27-2022 Mental Status [facility] 10-25-2022 Mental Status Orientation Oriented x 4 [facility] 10-24-2022 Mental Status [facility] 10-23-2022 Cognitive function Voice/Name [facility] Work Phone: 07-15-2022 Mental Status [facility] 07-11-[facility]22 Mental Status Oriented x 4 [facility] Clinical Notes 02-07-2022 to 12-30-2024 Note Date & Type Note Facility 12-30-2024 Note . MICRO - Microbiology PROCEDURE: Blood Culture (bacterial) [*1] SOURCE: Blood BODY SITE: COLLECTED DATE/TIME: 12/25/2024 00:19 EDT RECEIVED DATE/TIME: 12/25/2024 07:08 EDT START DATE/TIME: 12/25/2024 07:08 EDT FREE TEXT SOURCE: FINAL REPORTS Final Report [] Verified Date/Time/Personnel: 12/30/2024 07:59 EDT Blood Culture: No Growth at 5 days. PRELIMINARY REPORTS Preliminary Report [] Verified Date/Time/Personnel: 12/25/2024 07:59 EDT Culture has been received in lab and is no growth to date. Routine cultures are held for 5 days. Performing Locations *1: This test was performed at: [address], [address] [place] [address] 12-30-2024 Note . MICRO - Microbiology PROCEDURE: Blood Culture (bacterial) [*1] SOURCE: Blood BODY SITE: COLLECTED DATE/TIME: 12/25/2024 00:19 EDT RECEIVED DATE/TIME: 12/25/2024 07:08 EDT START DATE/TIME: 12/25/2024 07:08 EDT FREE TEXT SOURCE: FINAL REPORTS Final Report [] Verified Date/Time/Personnel: 12/30/2024 07:59 EDT Blood Culture: No Growth at 5 days. PRELIMINARY REPORTS Preliminary Report [] Verified Date/Time/Personnel: 12/25/2024 07:59 EDT Culture has been received in lab and is no growth to date. Routine cultures are held for 5 days. Performing Locations *1: This test was performed at: [address], [address] [place] [address] 12-29-2024 Discharge summary Note Date/Time December 29, 2024 11:14am [facility] Medical Records Department [address] [place], [place] [address] [address] Transfer to [facility] MR#: [id number] Acct: [id number] Name: CARLOS ALBERTO HOROWITZ Jr. Rep #:[id number] : 1970 54 From: Tricia Carvalho MD PCP: Dr. Jhonatan Garcia, DO Status:ADM IN Certification of patient admission REQUIRED AT TIME OF ADMISSION. I CERTIFY THAT POST-HOSPITAL ECF SERVICES ARE REQUIRED TO BE GIVEN ON AN IN-PATIENT BASIS BECAUSE OF THE ABOVE NAMED PATIENT'S NEED FOR CORRECTION CARE ON A CONTINUING BASIS FOR THE CONDITION(S) FOR WHICH HE/SHE WAS RECEIVINGIN-PATIENT HOSPITAL SERVICES PRIOR TO HIS/HER TRANSFER TO THE ECF. 12/29/24 1114<Electronically signed by Tricia Carvalho MD> Diet Diet Order/Speech Therapy: INPATIENT Hospital Diet / Speech Therapy Order(s) 12/28/24 08:53 Diet: Consistent Carb - Calorie Controlled Food consistency:: Regular Liquid Consistency:: Regular/Thin How many daily calories?: 1800 calorie Routine Orders/Code Status Enema Type: Fleetz Enema Frequency: Daily PRN Suppository Frequency: Daily PRN DC O2, CPAP, BIPAP needs Home O2 Discharge instructions: No Wound(s) Dorsal side of right hand: Wound Type: Skin Tear Right Reed: Wound Type: Puncture Outside of Right Heel: Wound Type: Puncture Inside of Right Heel: Wound Type: Puncture Therapies Weight Bearing: Weight bearing as tolerated Problem/Diagnosis (1) Atrial fibrillation with RVR: Status: Acute Code(s): I48.91 - Unspecified atrial fibrillation Plan #Afib * was admitted with afib with RVR and had unsuccessful cardioversion in the ED. He subsequently converted to normal sinus rhythm * currently in NSR. On dofetilide * cardiology consulted. 2D echo also ordered and pending. * troponins were not elevated * on xarelto * #Recent right ankle fracture * s/p post op infection of right ankle. on IV zosyn for a total of 8 weeks * on oxycodone prn. * #ELevated TSH * TSH is elevated at 5.13. Was normal on 10/28/2024 at 3.370. * check free T4 and T3. * #Benign essential hypertension: on amlodipine, metoprolol and hCTZ. IV hydralazine prn #Hyperlipidemia: on statin #Type 2 diabetes mellitus: on dulaglutide. ISS. Accuchecks ACHS. # Depression with anxiety: on duloxetine and trazodone #Muscle spasms: on tizanidine #GERD: on PPI #Gout: on allopurinol DVT prophylaxis: on xarelto Allergies/Procedures Done in Hospital Allergies [id number] Reductase Inhibitor Allergy (Mild, Verified 12/27/24 23:23) Hives Iodinated Contrast Media (contrast dye - iodinated) Adverse Reaction (Intermediate, Verified 12/27/24 23:23) Rash Procedures: None Type of Care/Length of Stay Estimated LOS: More Than 30 Days Type of Care Needed: Intermediate Rehab Potential: Fair Prognosis: Fair Additional Orders/Day of Discharge Day of Discharge: 12/29/24 Discharge Plan Admission Admit Date/Time: 12/28/24 03:48 Primary Reason for Your Visit: afib with RVR Attending Provider: Tricia Carvalho Primary Care Provider: Jhonatan Garcia Consulting Providers: Enrique Groves; Gala Solano; Sanchez Mitchell; Ghada Callejas; Akash Harman; Richard Conner; Landry Etienne; Keagan Garrett; Shaina Alatorre; Melissa Love; Ezio Ty; Gio Forman; Ruperto Haynes; Landon Ramirez NP; Barbara Beyer PA; Teofilo Alvarado; Keagan Rowe Instructions Patient Instructions: AFib Dc Discharge Orders/Prescriptions Prescriptions: Continued hydrochlorothiazide 50 mg Tablet 50 mg PO DAILY amlodipine 5 mg Tablet 5 mg PO DAILY allopurinol 100 mg Tablet 100 mg PO DAILY omeprazole 40 mg Capsule,Delayed Release(Dr/Ec) 40 mg PO DAILY Xarelto 20 mg tablet 20 mg PO DAILY Qty: 30 0RF Rx Instructions: must administer with evening meal trazodone 100 mg tablet 100 mg PO QHS tizanidine 2 mg tablet 2 mg PO Q8H PRN (Reason: muscle spasticity) spironolactone 25 mg tablet 25 mg PO [...] mEq tablet,ER particles/crystals 20 meq PO DAILY duloxetine 20 mg capsule,delayed release(DR/EC) 20 mg [...] PO Q4H PRN (Reason: fever or pain) Zosyn in dextrose (iso-osm) 2.25 gram/50 mL piggyback 2.25 g IV Q8H Referrals / Follow Up: Landry Etienne MD [Med Staff - Active Staff] - Within 1 Week Jhonatan Garcia DO [Primary Care Provider] - Within 1 Week Disposition Disposition (needs filled in before D/C Order can be placed): Long-Term Facility 12/29/24 1114 <Electronically signed by Tricia Carvalho MD> Cosigner Signature (if applicable): CC: BARREL TURNERTaz Ramirez; Dr. Gala Solano MD; Dr. Enrique Groves MD; Dr. Ghada Callejas MD; Dr. Sanchez Mitchell MD; Dr. Akash Harman MD; Dr. Richard Conner MD; Dr. Landry Etienne MD; Dr. Keagan Garrett DO; Dr. Keagan Rowe DO; Dr. Christian MD; Dr. Melissa Love MD; Dr. Ezio Ty MD; Dr. Ruperto Haynes MD; Dr. Jhonatan Garcia DO; Dr. Gio Forman MD; YAMILKA Jeronimo; YAMILKA Lee ~ [facility] Work Phone: 1(390) 343-538908-03-2025 Discharge summary [facility] Medical Records Department [address] [place] [address] Transfer to [facility] MR#: [id number] Acct: [id number] Name: CARLOS ALBERTO HOROWITZ Jr. Rep #:[id number] : 1970 54 From: Tricia Carvalho MD PCP: Dr. Jhonatan Garcia, DO Status:ADM IN Certification of patient admission REQUIRED AT TIME OF ADMISSION. I CERTIFY THAT POST-HOSPITAL ECF SERVICES ARE REQUIRED TO BE GIVEN ON AN IN-PATIENT BASIS BECAUSE OF THE ABOVE NAMED PATIENT'S NEED FOR CORRECTION CARE ON A CONTINUING BASIS FOR THE CONDITION(S) FOR WHICH HE/SHE WAS RECEIVINGIN-PATIENT HOSPITAL SERVICES PRIOR TO HIS/HER TRANSFER TO THE F. 12/29/24 1114 Diet Diet Order/Speech Therapy: INPATIENT Hospital Diet / Speech Therapy Order(s) 12/28/24 08:53 Diet: Consistent Carb - Calorie Controlled Food consistency:: Regular Liquid Consistency:: Regular/Thin How many daily calories?: 1800 calorie Routine Orders/Code Status Enema Type: Fleetz Enema Frequency: Daily PRN Suppository Frequency: Daily PRN DC O2, CPAP, BIPAP needs Home O2 Discharge instructions: No Wound(s) Dorsal side of right hand: Wound Type: Skin Tear Right Reed: Wound Type: Puncture Outside of Right Heel: Wound Type: Puncture Inside of Right Heel: Wound Type: Puncture Therapies Weight Bearing: Weight bearing as tolerated Problem/Diagnosis (1) Atrial fibrillation with RVR: Status: Acute Code(s): I48.91 - Unspecified atrial fibrillation Plan #Afib * was admitted with afib with RVR and had unsuccessful cardioversion in the ED. He subsequently converted to normal sinus rhythm * currently in NSR. On dofetilide * cardiology consulted. 2D echo also ordered and pending. * troponins were not elevated * on xarelto * #Recent right ankle fracture * s/p post op infection of right ankle. on IV zosyn for a total of 8 weeks * on oxycodone prn. * #ELevated TSH * TSH is elevated at 5.13. Was normal on 10/28/2024 at 3.370. * check free T4 and T3. * #Benign essential hypertension: on amlodipine, metoprolol and hCTZ. IV hydralazine prn #Hyperlipidemia: on statin #Type 2 diabetes mellitus: on dulaglutide. ISS. Accuchecks ACHS. # Depression with anxiety: on duloxetine and trazodone #Muscle spasms: on tizanidine #GERD: on PPI #Gout: on allopurinol DVT prophylaxis: on xarelto Allergies/Procedures Done in Hospital Allergies Mkatykc-TPV-UeW Reductase Inhibitor Allergy (Mild, Verified 12/27/24 23:23) Hives Iodinated Contrast Media (contrast dye - iodinated) Adverse Reaction (Intermediate, Verified 12/27/24 23:23) Rash Procedures: None Type of Care/Length of Stay Estimated LOS: More Than 30 Days Type of Care Needed: Intermediate Rehab Potential: Fair Prognosis: Fair Additional Orders/Day of Discharge Day of Discharge: 12/29/24 Discharge Plan Admission Admit Date/Time: 12/28/24 03:48 Primary Reason for Your Visit: afib with RVR Attending Provider: Tricia Carvalho Primary Care Provider: Jhonatan Garcia Consulting Providers: Enrique Groves; Gala Solano; Sanchez Mitchell; Ghada Callejas; Akash Harman; Richard Conner; Landry Etienne; Keagan Garrett; Shaina Alatorre; Melissa Love; Ezio Ty; Gio Forman; Ruperto Haynes; Landon Ramirez NP; Barbara Beyer PA; Teofilo Alvarado; Keagan Rowe Instructions Patient Instructions: AFib Dc Discharge Orders/Prescriptions Prescriptions: Continued hydrochlorothiazide 50 mg Tablet 50 mg PO DAILY amlodipine 5 mg Tablet 5 mg PO DAILY allopurinol 100 mg Tablet 100 mg PO DAILY omeprazole 40 mg Capsule,Delayed Release(Dr/Ec) 40 mg PO DAILY Xarelto 20 mg tablet 20 mg PO DAILY Qty: 30 0RF Rx Instructions: must administer with evening meal trazodone 100 mg tablet 100 mg PO QHS tizanidine 2 mg tablet 2 mg PO Q8H PRN (Reason: muscle spasticity) spironolactone 25 mg tablet 25 mg PO [...] mEq tablet,ER particles/crystals 20 meq PO DAILY duloxetine 20 mg capsule,delayed release(DR/EC) 20 mg [...] PO Q4H PRN (Reason: fever or pain) Zosyn in dextrose (iso-osm) 2.25 gram/50 mL piggyback 2.25 g IV Q8H Referrals / Follow Up: Landry Etienne MD [Med Staff - Active Staff] - Within 1 Week Jhonatan Garcia DO [Primary Care Provider] - Within 1 Week Disposition Disposition (needs filled in before D/C Order can be placed): Long-Term Facility 12/29/24 1114 Cosigner Signature (if applicable): CC: STACEY Ramirez; Dr. Gala Solano MD; Dr. Enrique Groves MD; Dr. Ghada Callejas MD; Dr. Sanchez Mitchell MD; Dr. Akash Harman MD; Dr. Richard Conner MD; Dr. Landry Etienne MD; Dr. Keagan Garrett DO; Dr. Keagan Rowe DO; Dr. Christian MD; Dr. Melissa Love MD; Dr. Ezio Ty MD; Dr. Ruperto Haynes MD; Dr. Jhonatan Garcia DO; Dr. Gio Forman MD; YAMILKA Jeronimo; YAMILKA Lee ~ [facility]08-03-[facility] Note. MICRO - Microbiology PROCEDURE: Blood Culture (bacterial) [*1] SOURCE: Blood BODY SITE: COLLECTED DATE/TIME: 12/24/2024 04:15 EDT RECEIVED DATE/TIME: 12/24/2024 05:27 EDT START DATE/TIME: 12/24/2024 05:27 EDT FREE TEXT SOURCE: FINAL REPORTS Final Report [] Verified Date/Time/Personnel: 12/29/2024 05:59 EDT Blood Culture: No Growth at 5 days. PRELIMINARY REPORTS Preliminary Report [] Verified Date/Time/Personnel: 12/24/2024 05:59 EDT Culture has been received in lab and is no growth to date. Routine cultures are held for 5 days. Performing Locations *1: This test was performed at: [address] [id number] Note. MICRO - Microbiology PROCEDURE: Blood Culture (bacterial) [*1] SOURCE: Blood BODY SITE: COLLECTED DATE/TIME: 12/24/2024 04:15 EDT RECEIVED DATE/TIME: 12/24/2024 05:27 EDT START DATE/TIME: 12/24/2024 05:27 EDT FREE TEXT SOURCE: FINAL REPORTS Final Report [] Verified Date/Time/Personnel: 12/29/2024 05:59 EDT Blood Culture: No Growth at 5 days. PRELIMINARY REPORTS Preliminary Report [] Verified Date/Time/Personnel: 12/24/2024 05:59 EDT Culture has been received in lab and is no growth to date. Routine cultures are held for 5 days. Performing Locations *1: This test was performed at: [address]08-02-2025 Note. MICRO - Microbiology PROCEDURE: Blood Culture (bacterial) [*1] SOURCE: Blood BODY SITE: COLLECTED DATE/TIME: 12/23/2024 20:08 EDT RECEIVED DATE/TIME: 12/23/2024 20:16 EDT START DATE/TIME: 12/23/2024 20:16 EDT FREE TEXT SOURCE: FINAL REPORTS Final Report [] Verified Date/Time/Personnel: 12/28/2024 21:00 EDT Blood Culture: No Growth at 5 days. PRELIMINARY REPORTS Preliminary Report [] Verified Date/Time/Personnel: 12/23/2024 20:59 EDT Culture has been received in lab and is no growth to date. Routine cultures are held for 5 days. Performing Locations *1: This test was performed at: [address], [facility] , [facility] [id number] Note. MICRO - Microbiology PROCEDURE: Blood Culture (bacterial) [*1] SOURCE: Blood BODY SITE: COLLECTED DATE/TIME: 12/23/2024 20:06 EDT RECEIVED DATE/TIME: 12/23/2024 20:16 EDT START DATE/TIME: 12/23/2024 20:16 EDT FREE TEXT SOURCE: FINAL REPORTS Final Report [] Verified Date/Time/Personnel: 12/28/2024 21:00 EDT Blood Culture: No Growth at 5 days. PRELIMINARY REPORTS Preliminary Report [] Verified Date/Time/Personnel: 12/23/2024 20:59 EDT Culture has been received in lab and is no growth to date. Routine cultures are held for 5 days. Performing Locations *1: This test was performed at: [address], [facility] , [facility] [id number] Progress note Author Tricia [facility] Note Date/Time December 28, 2024 2:4 8pm [facility] Medical Records Department [address] [place] [id number] Progress Note 12/28/24 1118 MR#: [id number] Acct: [id number] Name: CARLOS ALBERTO HOROWITZ Jr. Rep #:[id number] : 1970 54 From: Tricia Caravlho MD PCP: Dr. Jhonatan Garcia, DO Status:ADM IN Location: [facility] [place] [address] Subjective Subjective Patient seen and examined. He was admitted with a complaint of palpitations and was found to be in afib with RVR. He had unsuccessful cardioversion in the ED. He was admitted to the PCU and converted to normal sinus rhythm spontaneously. He had no active complaints. He denied any chest pain, palpitations, dizziness, nausea, vomiting or any other symptoms. Review of systems is otherwise negative. Objective Data Objective Data Vital Signs: Vital Signs Temp Pulse Resp BP Pulse Ox O2 Del Method O2 Flow Rate 98.3 F 60 18 122/76 H 96 Nasal Cannula 2 12/28/24 08:56 12/28/24 08:56 12/28/24 08:56 12/28/24 08:56 12/28/24 08:56 12/28/24 08:56 12/28/24 08:42 Oxygen Flow Rate (L/min) [3] 4 Oxygen Flow Rate (L/min) [2] 4 Oxygen Flow Rate (L/min) [1 ( 4 Initial Baseline)] Oxygen Flow Rate (L/min) 2 Oxygen Delivery Method [3] Nasal Cannula Oxygen Delivery Method [2] Nasal Cannula Oxygen Delivery Method [1 ( Nasal Cannula Initial Baseline)] Oxygen Delivery Method Nasal Cannula Weight: 313 lb 7.957 oz Body Mass Index (BMI) 46.3 Intake & Output: Intake and Output for Last 24 Hours 12/26/24 12/27/24 12/28/24 23:59 23:59 23:59 Intake Total 50 / 50 Balance 50 / 50 Lab / Micro Data 12/28/24 05:39 12/28/24 05:39 Labs: Laboratory Results - last 24 hr 12/27/24 23:34: WBC 6.0, RBC 5.02, Hgb 13.6, Hct 42.7, MCV 85.1, MCH 27.1, MCHC 31.9 L, RDW Std Deviation 41.7, RDW Coeff of Tee 13.4, Plt Count 146 L, MPV 10.3, Immature Gran % (Auto) 0.500, Neut % (Auto) 68.5, Lymph % (Auto) 17.2 L, [place] % (Auto) 11.8 H, Eos % (Auto) 1.3, Baso % (Auto) 0.7, Absolute Neuts (auto) 4.1, Absolute Lymphs (auto) 1.04, Nucleated RBC % 0, PT 15.4 H, INR 1.2, APTT 28.4, Sodium 136, Potassium 3.7, Chloride 101, Carbon Dioxide 26.0, Anion Gap 9,BUN 9, Creatinine 0.79, Estim Creat Clear Calc 152.63, Est GFR (MDRD) Non-Af 106, BUN/Creatinine Ratio 10.9, Glucose 167 H, Calcium 8.7 12/28/24 04:40: POC Glucose 141 H 12/28/24 05:36: Urine Color Straw, Urine Clarity Clear, Urine pH 6.0, Ur Specific [place] 1.015, Urine Protein 15 H, Urine Glucose (UA) Normal, Urine Ketones Negative, Urine Occult Blood 25 H, Urine Nitrite Negative, Urine Bilirubin Negative, Urine Urobilinogen Normal, Ur Leukocyte Esterase Negative, Urine RBC 0 SEEN, Urine WBC 0 SEEN, Ur Squamous Epith Cells 0 SEEN, Urine Bacteria 0 SEEN, Urine Mucus 0 SEEN 12/28/24 05:39: WBC 5.7, RBC 5.27, Hgb 14.2, Hct 45.1, MCV 85.6, MCH 26.9 L, MCHC 31.5 L, RDW Std Deviation 42.1, RDW Coeff of Tee 13.4, Plt Count 150, MPV 10.1, Immature Gran % (Auto) 0.400, Neut % (Auto) 65.2, Lymph % (Auto) 19.9, [place] % (Auto) 11.6 H, Eos % (Auto) 1.8, Baso % (Auto) 1.1 H, Absolute Neuts (auto) 3.7, Absolute Lymphs (auto) 1.13, Nucleated RBC % 0, Sodium 137, Potassium 4.2, Chloride 102, Carbon Dioxide 25.5, Anion Gap 10, BUN 9, Creatinine 0.77, Estim Creat Clear Calc 155.83, Est GFR (MDRD) Non-Af 107, BUN/Creatinine Ratio 12.1, Glucose 145 H, Calcium 8.6, Phosphorus 2.8, Magnesium1.9, Total Bilirubin 0.30, AST 23, ALT 12, Alkaline Phosphatase 77, Troponin T High Sens 12 D, Total Protein 6.7, Albumin 3.5, Globulin 3.3, Albumin/Globulin Ratio 1.1, TSH 5.130 H 12/28/24 06:59: Troponin T Hi Sens 2 Hr 13 12/28/24 09:26: Troponin T Hi Sens 4Hr 11 Radiography Diagnostic Testing: Radiology Impression Chest X-Ray 12/27/24 23:40 IMPRESSION: No acute cardiopulmonary disease. Reading Location: [facility] Physical Exam Const alert, oriented x3 and no apparent distress Constitutional Narrative: class III obesity General Appearance: cooperative HEENT normocephalic, head/scalp atraumatic, moist oral mucous membranes and oropharynxnormal Eyes EOMs intact bilaterally Neck no lymphadenopathy and supple Lymph Lymphatic: no lymphedema noted Resp Resp Narrative: mildly diminished breath sounds bibasally, no wheezes or crackles. On 2L of oxygen by nasal canula. Cardio regular rate, regular rhythm, S1 normal heart sound, S2 normal heart sound and no murmurs GI normal to inspection, nondistended, normoactive bowel sounds, soft to palpation,non-tender and non-distended Extremity normal capillary refill, no clubbing, cyanosis or edema and no calf tenderness General Extremity: no tenderness to palpation of joints or extremities Skin General Skin Exam: no breakdown Neuro CN's II-XII intact bilaterally, no focal motor deficits and no sensory deficits noted Motor Exam: strength 5/5 throughout Psych thought process normal and cooperative Appearance: appropriate Assessment & Plan Assessment/Plan (1) Atrial fibrillation with RVR: PLAN: Plan #Afib * was admitted with afib with RVR and had unsuccessful cardioversion in the ED. He subsequently converted to normal sinus rhythm * currently in NSR. On dofetilide * cardiology consulted. 2D echo also ordered and pending. * troponins were not elevated * on xarelto * #Recent right ankle fracture * s/p post op infection of right ankle. on IV zosyn for a total of 8 weeks * on oxycodone prn. * #ELevated TSH * TSH is elevated at 5.13. Was normal on 10/28/2024 at 3.370. * check free T4 and T3. * #Benign essential hypertension: on amlodipine, metoprolol and hCTZ. IV hydralazine prn #Hyperlipidemia: on statin #Type 2 diabetes mellitus: on dulaglutide. ISS. Accuchecks ACHS. # Depression with anxiety: on duloxetine and trazodone #Muscle spasms: on tizanidine #GERD: on PPI #Gout: on allopurinol DVT prophylaxis: on xarelto Charges/Coding Visit Charges Inpatient E&M: 82305 Subs Hosp L2 12/28/24 1448 <Electronically signed by Tricia Carvalho MD> Tricia Carvalho MD Cosigner Signature (if applicable): CC: ~ Signed [facility] Work Phone: [phone]) 684-616408-02-2025 Progress note [facility] Medical Records Department [address] [place] [address] Progress Note 12/28/24 1118 MR#: [id number] Acct: [id number] Name: CARLOS ALBERTO HOROWITZ Jr. Rep #:[id number] : 1970 54 From: Tricia Carvalho MD PCP: Dr. Jhonatan Garcia, DO Status:ADM IN Location: [facility] [place] [address] Subjective Subjective Patient seen and examined. He was admitted with a complaint of palpitations and was found to be in afib with RVR. He had unsuccessful cardioversion in the ED. He was admitted to the PCU and convertedto normal sinus rhythm spontaneously. He had no active complaints. He denied any chest pain, palpitations, dizziness, nausea, vomiting or any other symptoms. Review of systems is otherwise negative. Objective Data Objective Data Vital Signs: Vital Signs Temp Pulse Resp BP Pulse Ox O2 Del Method O2 Flow Rate 98.3 F 60 18 122/76 H 96 Nasal Cannula 2 12/28/24 08:56 12/28/24 08:56 12/28/24 08:56 12/28/24 08:56 12/28/24 08:56 12/28/24 08:56 12/28/24 08:42 Oxygen Flow Rate (L/min) [3] 4 Oxygen Flow Rate (L/min) [2] 4 Oxygen Flow Rate (L/min) [1 ( 4 Initial Baseline)] Oxygen Flow Rate (L/min) 2 Oxygen Delivery Method [3] Nasal Cannula Oxygen Delivery Method [2] Nasal Cannula Oxygen Delivery Method [1 ( Nasal Cannula Initial Baseline)] Oxygen Delivery Method Nasal Cannula Weight: 313 lb 7.957 oz Body Mass Index (BMI) 46.3 Intake & Output: Intake and Output for Last 24 Hours 12/26/24 12/27/24 12/28/24 23:59 23:59 23:59 Intake Total 50 / 50 Balance 50 / 50 Lab / Micro Data 12/28/24 05:39 12/28/24 05:39 Labs: Laboratory Results - last 24 hr 12/27/24 23:34: WBC 6.0, RBC 5.02, Hgb 13.6, Hct 42.7, MCV 85.1, MCH 27.1, MCHC 31.9 L, RDW Std Deviation 41.7, RDW Coeff of Tee 13.4, Plt Count 146 L, MPV 10.3, Immature Gran % (Auto) 0.500, Neut % (Auto) 68.5, Lymph % (Auto) 17.2 L, [place] % (Auto) 11.8 H, Eos % (Auto) 1.3, Baso % (Auto) 0.7, Absolute Neuts (auto) 4.1, Absolute Lymphs (auto) 1.04, Nucleated RBC % 0, PT 15.4 H, INR 1.2, APTT 28.4,Sodium 136, Potassium 3.7, Chloride 101, Carbon Dioxide 26.0, Anion Gap 9,BUN 9, Creatinine 0.79, Estim Creat Clear Calc 152.63, Est GFR (MDRD) Non-Af 106, BUN/Creatinine Ratio 10.9, Glucose 167 H, Calcium 8.7 12/28/24 04:40: POC Glucose 141 H 12/28/24 05:36: Urine Color Straw, Urine Clarity Clear, Urine pH 6.0, Ur Specific [place] 1.015, Urine Protein 15 H, Urine Glucose (UA) Normal, Urine Ketones Negative, Urine Occult Blood 25 H, Urine Nitrite Negative, Urine Bilirubin Negative, Urine Urobilinogen Normal, Ur Leukocyte Esterase Negative, Urine RBC 0 SEEN, Urine WBC 0 SEEN, Ur Squamous Epith Cells 0 SEEN, Urine Bacteria 0 SEEN, Urine Mucus 0 SEEN 12/28/24 05:39: WBC 5.7, RBC 5.27, Hgb 14.2, Hct 45.1, MCV 85.6, MCH 26.9 L, MCHC 31.5 L, RDW Std Deviation 42.1, RDW Coeff of Tee 13.4, Plt Count 150, MPV 10.1, Immature Gran % (Auto) 0.400, Neut % (Auto) 65.2, Lymph % (Auto) 19.9, [place] % (Auto) 11.6 H, Eos % (Auto) 1.8, Baso % (Auto) 1.1 H, Absolute Neuts (auto) 3.7, Absolute Lymphs (auto) 1.13, Nucleated RBC % 0, Sodium 137, Potassium 4.2, Chloride 102, Carbon Dioxide 25.5, Anion Gap 10, BUN 9, Creatinine 0.77, Estim Creat Clear Calc 155.83,Est GFR (MDRD) Non-Af 107, BUN/Creatinine Ratio 12.1, Glucose 145 H, Calcium 8.6, Phosphorus 2.8, Ma gnesium1.9, Total Bilirubin 0.30, AST 23, ALT 12, Alkaline Phosphatase 77, Troponin T High Sens 12 D, Total Protein 6.7, Albumin 3.5, Globulin 3.3, Albumin/Globulin Ratio 1.1, TSH 5.130 H 12/28/24 06:59: Troponin T Hi Sens 2 Hr 13 12/28/24 09:26: Troponin T Hi Sens 4Hr 11 Radiography Diagnostic Testing: Radiology Impression Chest X-Ray 12/27/24 23:40 IMPRESSION: No acute cardiopulmonary disease. Reading Location: [facility] Physical Exam Const alert, oriented x3 and no apparent distress Constitutional Narrative: class III obesity General Appearance: cooperative HEENT normocephalic, head/scalp atraumatic, moist oral mucous membranes and oropharynxnormal Eyes EOMs intact bilaterally Neck no lymphadenopathy and supple Lymph Lymphatic: no lymphedema noted Resp Resp Narrative: mildly diminished breath sounds bibasally, no wheezes or crackles. On 2L of oxygen by nasal canula. Cardio regular rate, regular rhythm, S1 normal heart sound, S2 normal heart sound and no murmurs GI normal to inspection, nondistended, normoactive bowel sounds, soft to palpation,non-tender and non-distended Extremity normal capillary refill, no clubbing, cyanosis or edema and no calf tenderness General Extremity: no tenderness to palpation of joints or extremities Skin General Skin Exam: no breakdown Neuro CN's II-XII intact bilaterally, no focal motor deficits and no sensory deficits noted Motor Exam: strength 5/5 throughout Psych thought process normal and cooperative Appearance: appropriate Assessment & Plan Assessment/Plan (1) Atrial fibrillation with RVR: PLAN: Plan #Afib * was admitted with afib with RVR and had unsuccessful cardioversion in the ED. He subsequently converted to normal sinus rhythm * currently in NSR. On dofetilide * cardiology consulted. 2D echo also ordered and pending. * troponins were not elevated * on xarelto * #Recent right ankle fracture * s/p post op infection of right ankle. on IV zosyn for a total of 8 weeks * on oxycodone prn. * #ELevated TSH * TSH is elevated at 5.13. Was normal on 10/28/2024 at 3.370. * check free T4 and T3. * #Benign essential hypertension: on amlodipine, metoprolol and hCTZ. IV hydralazine prn #Hyperlipidemia: on statin #Type 2 diabetes mellitus: on dulaglutide. ISS. Accuchecks ACHS. # Depression with anxiety: on duloxetine and trazodone #Muscle spasms: on tizanidine #GERD: on PPI #Gout: on allopurinol DVT prophylaxis: on xarelto Charges/Coding Visit Charges Inpatient E&M: 61452 Subs Hosp L2 12/28/24 1448 Tricia Carvalho MD Cosigner Signature (if applicable): CC: ~ Signed [facility]08-02-2025 History and physical note Author Keagan Delgado [facility] Note Date/Time December 28, 2024 6:0 9am [facility] Medical Records Department [address] [place] [id number] H&P Exam - Hospitalist 12/28/24 0307 MR#: [id number] Acct: [id number] Name: CARLOS ALBERTO HOROWITZ Jr. Rep #:[id number] : 1970 54 From: Keagan Tavares DO PCP: Dr. Jhonatan Garcia, DO Status:ADM IN Location: [facility] [id number] HPI - General General Date of Admission: 12/28/24 Date of Service: 12/28/24 Chief Complaint: Palpitations. HPI Narrative CARLOS ALBERTO HOROWITZ, is a 54 M with a past medical history of essential hypertension; on amlodipine, metoprolol twice daily plus hydrochlorothiazide and spironolactone, hyperlipidemia; on pravastatin and nexletol, morbid (class III) obesity; with BMI of 46.7 this admission, KOFFI; on CPAP, DM-2; of unknown control on dulaglutide, paroxysmal atrial fibrillation; s/p DCCV on dofetilide twice daily plus rivaroxaban, history of CHF, history of cardiomyopathy, former tobacco abuse with subsequent asthma/COPD; on fluticasone bupropion-salmeterol twice daily, depression with anxiety; on duloxetine and trazodone, muscle spasms; on tizanidine 3 times daily as needed, GERD; on omeprazole, gout; on allopurinol, OA, recent admission here on December 20, 2024 to December 21, 2024 for IV contra extravasation into his Right hand with subsequent swelling and blistering of hisRight hand and arm; with plastic surgery consulted and patient subsequently conservative treated with antibiotic ointment and recent history of displaced Right ankle fracture; s/p Ex-Fix with subsequent infection requiring RUE PICC line placement with patient to be on IV piperacillin-tazobactam with the patienton his 2nd of 8 weeks due to bacteremia with patient recently restarted on rivaroxaban at 7 PM yesterday evening who presents to [facility] complaining of palpitations. Mr. Horowitz reports his symptoms began ~90 minutes prior to arrival with the abrupt- onset of palpitations. He states the symptoms are typical of his previous boutsof atrial fibrillation with rapid ventricular response. He admits to associatedshortness of breath but he denies chest pain. He claims he has been taking his dofetilide as prescribed. He denies associated fever, chills, runny nose, sore throat, ear pain, cough, dysuria, hematuria, headache or rash. In the ER he underwent multiple unsuccessful attempts at DC cardioversion with atrial fibrillation; with rapid ventricular response at ~150 bpm requiring additional treatment with 20 mg IV Cardizem bolus x 1 with persistent RVR in the ~110 beeper minute range requiring additional p.o. Cardizem with fever of 100 ?F in the setting of previously known postoperative infection of Right ankle fracture;s/p Ex-Fix with CXR that revealed no acute cardiopulmonary process. He was thenadmitted to the PCU for ongoing care for stay that is expected to extend beyond 2 midnights. [facility] Medical History (Updated 12/28/24 @ 05:[address] Nguyễn Al, DO) Major depression Hypokalemia Paroxysmal atrial fibrillation Ankle fracture, right Insomnia Obstructive sleep apnea [...] 20 mg PO DAILY Unknown History release metoprolol succinate 100 mg 100 mg PO BID 12/19/24 Unk nown History tablet,extended release 24 hr potassium chloride 20 mEq 20 meq PO DAILY 12/19/24 Unk nown History tablet,extended release(part/cryst) pravastatin 40 mg tablet 40 mg PO DAILY 12/19/24 Unkn own History spironolactone 25 mg tablet 25 mg PO DAILY 12/19/24 Un known History tizanidine 2 mg tablet 2 mg PO Q8H PRN muscle spast icity 12/19/24 Unknown History trazodone 100 mg tablet [...] mcg/dose blistr powdr for inhalation (Advair Diskus) piperacillin-tazobactam 2.25 2.25 g IV Q8H 12/27/24 Un known History gram/50 mL in dextrose(iso) IV piggyback (Zosyn) Allergy/AdvReac Type Severity Reaction Status Date / Time [id number] Reductase Allergy Mild Hives Verified 12/27/24 23:23 Inhibitor Iodinated Contrast Media AdvReac Intermediate Rash Verified 12/27/24 23:23 (contrast dye - iodinated) Social History housing: [facility] Smoking Status: Former smoker ROS ROS Narrative Review of Systems: Constitutional: Patient noted to have fever of 100 ?F present on admission but he denies chills or sweats. Eyes: Patient denies change in vision or discharge from eyes. ENT: Patient denies runny nose, sore throat or ear pain. Resp: Patient admits to shortness of breath that coincides with his A-fib; with RVR. He denies cough. CV: Patient admits to palpitations but he denies chest pain, heart racing or lower extremity edema. GI: Patient denies abdominal pain, nausea, vomiting, diarrhea or constipation. : Patient denies dysuria, hematuria or urinary frequency. MSK: Patient denies arthralgias or myalgias. Skin: Patient denies rash, abscess, wounds or jaundice. Psych: Patient denies symptoms of uncontrolled depression or anxiety. Neuro: Patient denies headache, paresthesias or focal neurologic deficits. Allergy: Patient denies lip swelling, tongue swelling or urticaria. Hematology: Patient admits to easy bleeding and easy bruisability on rivaroxaban. Endocrinology: Patient denies polyuria, polydipsia, polyphagia or heat/cold intolerance. 14 point ROS otherwise negative except for positives noted above in HPI. Vital Signs Vital Signs Vital Signs: 12/27/24 23:19 12/27/24 23:22 12/27/24 23:24 Temperature 100 F H 100 F H Temperature Source Oral Oral Pulse Rate 149 H 138 H Pulse Rate [1 (Initial Baseline)] Pulse Rate [2] Pulse Rate [3] Respiratory Rate 19 H 20 H Respiratory Rate [1 (Initial Baseline)] Respiratory Rate [2] Respiratory Rate [3] Respiratory Effort Short of Breath Respiratory Depth Normal Respiratory Pattern Normal Blood Pressure 127/96 H 127/96 H Blood Pressure [2] Blood Pressure [3] Blood Pressure Mean 106 106 Baseline BP Pulse Ox 93 93 Oxygen Delivery Method Room Air Room Air Room Air Oxygen Delivery Method [1 (Initial Baseline)] Oxygen Delivery Method [2] Oxygen Delivery Method [3] Oxygen Flow Rate (L/min) Oxygen Flow Rate (L/min) [1 (Initial Baseline)] Oxygen Flow Rate (L/min) [2] Oxygen Flow Rate (L/min) [3] EtCo2 - Document during CPR and with ROSC EtCo2 - Document during CPR and with ROSC [1 (Initial Baseline)] EtCo2 - Document during CPR and with ROSC [2] EtCo2 - Document during CPR and with ROSC [3] 12/28/24 00:11 12/28/24 00:30 12/28/24 00:31 Temperature 100.1 F H Temperature Source Pulse Rate 134 H Pulse Rate [1 (Initial Baseline)] 135 H Pulse Rate [2] 101 H Pulse Rate [3] 106 H Respiratory Rate 21 H Respiratory Rate [1 (Initial Baseline)] 21 H Respiratory Rate [2] 29 H Respiratory Rate [3] 26 H Respiratory Effort Respiratory Depth Respiratory Pattern Blood Pressure 109/58 L Blood Pressure [2] 102/87 H Blood Pressure [3] 119/91 H Blood Pressure Mean Baseline BP 109/58 Pulse Ox 97 Oxygen Delivery Method Nasal Cannula Oxygen Delivery Method [1 (Initial Baseline)] Nasal Cannula Oxygen Delivery Method [2] Nasal Cannula Oxygen Delivery Method [3] Nasal Cannula Oxygen Flow Rate (L/min) 2 Oxygen Flow Rate (L/min) [1 (Initial Baseline)] 4 Oxygen Flow Rate (L/min) [2] 4 Oxygen Flow Rate (L/min) [3] 4 EtCo2 - Document during CPR and with ROSC 41 18 EtCo2 - Document during CPR and with ROSC [1 (Initial Baseline)] 45 EtCo2 - Document during CPR and with ROSC [2] 47 EtCo2 - Document during CPR and with ROSC [3] 43 12/28/24 00:41 12/28/24 00:44 12/28/24 00:46 Temperature 100.0 F H Temperature Source Oral Pulse Rate 129 H 120 H 125 H Pulse Rate [1 (Initial Baseline)] Pulse Rate [2] Pulse Rate [3] Respiratory Rate 23 H 17 17 Respiratory Rate [1 (Initial Baseline)] Respiratory Rate [2] Respiratory Rate [3] Respiratory Effort Respiratory Depth Respiratory Pattern Blood Pressure 120/94 H 116/91 H 116/91 H Blood Pressure [2] Blood Pressure [3] Blood Pressure Mean 99 Baseline BP Pulse Ox 100 95 94 Oxygen Delivery Method Nasal Cannula Nasal Cannula Room Air Oxygen Delivery Method [1 (Initial Baseline)] Oxygen Delivery Method [2] Oxygen Delivery Method [3] Oxygen Flow Rate (L/min) 4 4 Oxygen Flow Rate (L/min) [1 (Initial Baseline)] Oxygen Flow Rate (L/min) [2] Oxygen Flow Rate (L/min) [3] EtCo2 - Document during CPR and with ROSC 43 38 EtCo2 - Document during CPR and with ROSC [1 (Initial Baseline)] EtCo2 - Document during CPR and with ROSC [2] EtCo2 - Document during CPR and with ROSC [3] 12/28/24 00:51 12/28/24 01:00 12/28/24 01:33 Temperature 100 F H Temperature Source Oral Pulse Rate 124 H 86 75 Pulse Rate [1 (Initial Baseline)] Pulse Rate [2] Pulse Rate [3] Respiratory Rate 19 H 21 H 22 H Respiratory Rate [1 (Initial Baseline)] Respiratory Rate [2] Respiratory Rate [3] Respiratory Effort Respiratory Depth Respiratory Pattern Blood Pressure 114/73 87/62 L 93/61 Blood Pressure [2] Blood Pressure [3] Blood Pressure Mean 70 71 Baseline BP Pulse Ox 95 94 94 Oxygen Delivery Method Room Air Room Air Room Air Oxygen Delivery Method [1 (Initial Baseline)] Oxygen Delivery Method [2] Oxygen Delivery Method [3] Oxygen Flow Rate (L/min) Oxygen Flow Rate (L/min) [1 (Initial Baseline)] Oxygen Flow Rate (L/min) [2] Oxygen Flow Rate (L/min) [3] EtCo2 - Document during CPR and with ROSC 45 EtCo2 - Document during CPR and with ROSC [1 (Initial Baseline)] EtCo2 - Document during CPR and with ROSC [2] EtCo2 - Document during CPR and with ROSC [3] 12/28/24 02:00 Temperature 98.9 F Temperature Source Oral Pulse Rate 110 H Pulse Rate [1 (Initial Baseline)] Pulse Rate [2] Pulse Rate [3] Respiratory Rate 20 H Respiratory Rate [1 (Initial Baseline)] Respiratory Rate [2] Respiratory Rate [3] Respiratory Effort Respiratory Depth Respiratory Pattern Blood Pressure 98/71 Blood Pressure [2] Blood Pressure [3] Blood Pressure Mean 80 Baseline BP Pulse Ox 95 Oxygen Delivery Method Room Air Oxygen Delivery Method [1 (Initial Baseline)] Oxygen Delivery Method [2] Oxygen Delivery Method [3] Oxygen Flow Rate (L/min) Oxygen Flow Rate (L/min) [1 (Initial Baseline)] Oxygen Flow Rate (L/min) [2] Oxygen Flow Rate (L/min) [3] EtCo2 - Document during CPR and with ROSC EtCo2 - Document during CPR and with ROSC [1 (Initial Baseline)] EtCo2 - Document during CPR and with ROSC [2] EtCo2 - Document during CPR and with ROSC [3] Weight Weight: 316 lb 3.2 oz Body Mass Index (BMI) 46.7 Physical Exam Const alert, oriented x3 and no apparent distress Constitutional Narrative: Morbidly obese with nontoxic appearance and patient appearing older than stated age. General Appearance: cooperative HEENT normocephalic, head/scalp atraumatic, hearing grossly normal bilaterally and moist oral mucous membranes Eyes PERRL, EOMs intact bilaterally and conjunctivae normal Neck no lymphadenopathy, supple and no JVD Resp normal respiratory effort, no retractions, no use of accessory muscles and clear to auscultation bilaterally Cardio Cardio Narrative: Irregularly irregular at ~110 bpm. GI normal to inspection, nondistended, normoactive bowel sounds, soft to palpation, non-tender and non-distended GI Narrative: Morbidly obese. Extremity normal to inspection, full ROM and no clubbing, cyanosis or edema Extremity Narrative: Patient has RUE PICC line with no signs of surrounding inflammation or infection. Skin Skin Narrative: Patient with evidence of recent Right ankle Ex-Fix with no evidence of rash, abscess, wounds or jaundice. Neuro oriented x3, CN's II-XII intact bilaterally, moves all extremities and no focal motor deficits Sensorium / Orientation: awake, alert, oriented to person, oriented to place and oriented to time Speech: speech normal Psych affect normal Results Lab / Micro Data 12/27/24 23:34 12/27/24 23:34 Labs: Laboratory Results - last 24 hr 12/27/24 23:34: WBC 6.0, RBC 5.02, Hgb 13.6, Hct 42.7, MCV 85.1, MCH 27.1, MCHC 31.9 L, RDW Std Deviation 41.7, RDW Coeff of Tee 13.4, Plt Count 146 L, MPV 10.3, Immature Gran % (Auto) 0.500, Neut % (Auto) 68.5, Lymph % (Auto) 17.2 L, [place] % (Auto) 11.8 H, Eos % (Auto) 1.3, Baso % (Auto) 0.7, Absolute Neuts (auto) 4.1, Absolute Lymphs (auto) 1.04, Nucleated RBC % 0, PT 15.4 H, INR 1.2, APTT 28.4, Sodium 136, Potassium 3.7, Chloride 101, Carbon Dioxide 26.0, Anion Gap 9, BUN 9, Creatinine 0.79, Estim Creat Clear Calc 152.63, Est GFR (MDRD) Non-Af 106, BUN/Creatinine Ratio 10.9, Glucose 167 H, Calcium 8.7 Imaging Radiology Impression Chest X-Ray 12/27/24 23:40 IMPRESSION: No acute cardiopulmonary disease. Reading Location: [facility] Assessment & Plan Assessment/Plan (1) Atrial fibrillation with RVR: (2) Chronic anticoagulation: (3) Fever: QUALIFIERS: Fever type: unspecified Qualified Code(s): R50.9 - Fever, unspecified (4) Postoperative infection: QUALIFIERS: Encounter type: sequela Postoperative infection type: unspecified type Qualified Code(s): T81.40XS - Infection following a procedure, unspecified, sequela (5) History of fracture of right ankle: (6) Morbid obesity with BMI of 45.0-49.9, adult: (7) Obstructive sleep apnea: (8) Palpitations: PLAN: Plan 1. Atrial Fibrillation; with Rapid Ventricular Response refractory to treatment with IV diltiazem and multiple attempts at DC cardioversion in the setting of known paroxysmal atrial fibrillation with patient already on rivaroxaban and dofetilide - Admit to PCU. If patient's heart rate does not improve he will require treatment with IV amiodarone as his blood pressure is now 98 mm systolic. Check echocardiogram to evaluate LVEF. Serialize troponin. Check TSH. Finally, we will consult [facility] see this patient on rounds in the a.m. for further recommendations with help appreciated in advance. 2. Fever of 100 ?F in the setting of previously known postoperative infection of Right ankle fracture; s/p Ex-Fix with RUE PICC already on IV piperacillin- tazobactam for projected 8 weeks complicating and likely precipitating #1 - Maintain IV piperacillin-tazobactam as previous. Give acetaminophen as needed for [id number]-hn-[id number] (level 1-5/10) pain or fever. Give oxycodone as needed for severe (level 6-10/10) pain. 3. Morbid (class III) obesity; with BMI of 46.7 this admission plus KOFFI; on CPAP adding to the burden of disease outlined in #1 & #2 - Weight loss will be recommended. Check TSH. This complicates his case and may hamper recovery. 4. Recent admission here on December 20, 2024 to December 21, 2024 for IV contra extravasation into his Right hand with subsequent swelling and blistering of his Right hand and arm; with plastic surgery consulted and patient subsequently conservative treated with antibiotic ointment - Noted. 5. Essential hypertension; on amlodipine, metoprolol twice daily plus hydrochlorothiazide and spironolactone - Hold scheduled antihypertensives with relative hypotension noted at this time. 6. Hyperlipidemia; on pravastatin and nexletol - Maintain home regimen. 7. DM-2; of unknown control on dulaglutide - ADA/cardiac diet. FSBS q. AC/HS plus SSI. Check HgbA1c to objectively assess quality of diabetic control. 8. History of CHF; of uncertain type - Echocardiogram pending for #1. Patient has no signs of volume overload at this time. 9. History of cardiomyopathy - Noted with echocardiogram pending for #1. 10. Former tobacco abuse with subsequent asthma/COPD; on fluticasone bupropion-salmeterol twice daily - Stable with no evidence of acute flare at this time. Minimize breathing treatments as much as possible to avoid exacerbating RVR. 11. Depression with anxiety; on duloxetine and trazodone - Resume present therapy. 12. Muscle spasms; on tizanidine 3 times daily as needed - Continue current treatment. 13. GERD; on omeprazole - Maintain PPI. 14. Gout; on allopurinol - Stable without evidence of acute flare at this time. Resume allopurinol as before. 15. OA - We will follow pain regimen and scales outlined in #2. 16. DVT prophylaxis - Patient is already on rivaroxaban for #1 which will be continued. Total time: Approximately (but not less than) 75 minutes. Charges/Coding Visit Charges Inpatient E&M: 53427 Init Hosp L3 12/28/24 0609 <Electronically signed by Keagan Rowe DO> Cosigner Signature (if applicable): CC: Dr. Keagan Rowe DO; Dr. Jhonatan Garcia DO~ Signed [facility] Work Phone: [phone]) 629-507008-02-2025 Discharge summary Author Nguyễn Le [facility] Note Date/Time December 28, 2024 5:4 2am [facility] Medical Records Department [address] [place] [id number] Emergency Department Summary 12/27/24 MR#: [id number] Acct: [id number] Name: CARLOS ALBERTO HOROWITZ Jr. Rep #:[id number] : 1970 54 From: Nguyễn Tavera PCP: Dr. Jhonatan Garcia DO Status:ADM IN Location: [place] [address] HPI History of Present Illness Chief Complaint: Shortness of Breath Informant: patient and EMS Narrative Narrative: [facility]- fib 10 PM 90 minutes prior to arrival. History of A-fib for years followed by cardiology in [place] (Goprol). He had right ankle fracture displaced 8 weeks ago with Ex-Fix. He states Ex-Fix was removed 2 days ago with Xarelto held. He has been taking his Tikosyn. Xarelto restarted 7 PM this evening. Hestates infection of his Ex- Fix he is currently on antibiotics with a PICC line. No cough. Has dyspnea with his A- fib. Denies chest pains. Denies recent vomiting or diarrhea. Denies any urinary symptoms. Reports he has been cardioverted in the past. Prior similar symptoms: Yes [facility] Medical History (Updated 12/28/24 @ 05:[address] Nguyễn Al, DO) Major depression Hypokalemia Paroxysmal atrial fibrillation Ankle fracture, right Insomnia Obstructive sleep apnea [...] 20 mg PO DAILY Unknown History release metoprolol succinate 100 mg 100 mg PO BID 12/19/24 Unk nown History tablet,extended release 24 hr potassium chloride 20 mEq 20 meq PO DAILY 12/19/24 Unk nown History tablet,extended release(part/cryst) pravastatin 40 mg tablet 40 mg PO DAILY 12/19/24 Unkn own History spironolactone 25 mg tablet 25 mg PO DAILY 12/19/24 Un known History tizanidine 2 mg tablet 2 mg PO Q8H PRN muscle spast icity 12/19/24 Unknown History trazodone 100 mg tablet [...] mcg/dose blistr powdr for inhalation (Advair Diskus) piperacillin-tazobactam 2.25 2.25 g IV Q8H 12/27/24 Un known History gram/50 mL in dextrose(iso) IV piggyback (Zosyn) Allergy/AdvReac Type Severity Reaction Status Date / Time [id number] Reductase Allergy Mild Hives Verified 12/27/24 23:23 Inhibitor Iodinated Contrast Media AdvReac Intermediate Rash Verified 12/27/24 23:23 (contrast dye - iodinated) Social History housing: [facility] Smoking Status: Former smoker ROS ROS ED Constitutional Constitutional ED: Denies chills, fever(s) or sweats ENT ENT ED: Denies sore throat Cardiovascular Cardiovascular: Reports palpitations; Denies chest pain, leg edema or racing heartbeat Respiratory/Chest Respiratory/Chest: Reports dyspnea; Denies cough or dyspnea on exertion Gastrointestinal Gastrointestinal: Denies abdominal pain, diarrhea, nausea or vomiting Genitourinary Genitourinary ED: Denies dysuria, hematuria or urinary frequency Musculoskeletal Musculoskeletal: Denies back pain, extremity pain or neck pain Integumentary Denies rash or wounds Neurologic Neurologic: Denies headache(s), paresthesias or weakness EXAM Physical Exam Const Vital Signs: 12/27/24 23:19 12/27/24 23:22 12/27/24 23:24 Temperature 100 F H 100 F H Temperature Source Oral Oral Pulse Rate 149 H 138 H Pulse Rate [1 (Initial Baseline)] Pulse Rate [2] Pulse Rate [3] Respiratory Rate 19 H 20 H Respiratory Rate [1 (Initial Baseline)] Respiratory Rate [2] Respiratory Rate [3] Respiratory Effort Short of Breath Respiratory Depth Normal Respiratory Pattern Normal Blood Pressure 127/96 H 127/96 H Blood Pressure [2] Blood Pressure [3] Blood Pressure Mean 106 106 Baseline BP Pulse Ox 93 93 Oxygen Delivery Method Room Air Room Air Room Air Oxygen Delivery Method [1 (Initial Baseline)] Oxygen Delivery Method [2] Oxygen Delivery Method [3] Oxygen Flow Rate (L/min) Oxygen Flow Rate (L/min) [1 (Initial Baseline)] Oxygen Flow Rate (L/min) [2] Oxygen Flow Rate (L/min) [3] EtCo2 - Document during CPR and with ROSC EtCo2 - Document during CPR and with ROSC [1 (Initial Baseline)] EtCo2 - Document during CPR and with ROSC [2] EtCo2 - Document during CPR and with ROSC [3] 12/28/24 00:11 12/28/24 00:30 12/28/24 00:31 Temperature 100.1 F H Temperature Source Pulse Rate 134 H Pulse Rate [1 (Initial Baseline)] 135 H Pulse Rate [2] 101 H Pulse Rate [3] 106 H Respiratory Rate 21 H Respiratory Rate [1 (Initial Baseline)] 21 H Respiratory Rate [2] 29 H Respiratory Rate [3] 26 H Respiratory Effort Respiratory Depth Respiratory Pattern Blood Pressure 109/58 L Blood Pressure [2] 102/87 H Blood Pressure [3] 119/91 H Blood Pressure Mean Baseline BP 109/58 Pulse Ox 97 Oxygen Delivery Method Nasal Cannula Oxygen Delivery Method [1 (Initial Baseline)] Nasal Cannula Oxygen Delivery Method [2] Nasal Cannula Oxygen Delivery Method [3] Nasal Cannula Oxygen Flow Rate (L/min) 2 Oxygen Flow Rate (L/min) [1 (Initial Baseline)] 4 Oxygen Flow Rate (L/min) [2] 4 Oxygen Flow Rate (L/min) [3] 4 EtCo2 - Document during CPR and with ROSC 41 18 EtCo2 - Document during CPR and with ROSC [1 (Initial Baseline)] 45 EtCo2 - Document during CPR and with ROSC [2] 47 EtCo2 - Document during CPR and with ROSC [3] 43 12/28/24 00:41 12/28/24 00:44 12/28/24 00:46 Temperature 100.0 F H Temperature Source Oral Pulse Rate 129 H 120 H 125 H Pulse Rate [1 (Initial Baseline)] Pulse Rate [2] Pulse Rate [3] Respiratory Rate 23 H 17 17 Respiratory Rate [1 (Initial Baseline)] Respiratory Rate [2] Respiratory Rate [3] Respiratory Effort Respiratory Depth Respiratory Pattern Blood Pressure 120/94 H 116/91 H 116/91 H Blood Pressure [2] Blood Pressure [3] Blood Pressure Mean 99 Baseline BP Pulse Ox 100 95 94 Oxygen Delivery Method Nasal Cannula Nasal Cannula Room Air Oxygen Delivery Method [1 (Initial Baseline)] Oxygen Delivery Method [2] Oxygen Delivery Method [3] Oxygen Flow Rate (L/min) 4 4 Oxygen Flow Rate (L/min) [1 (Initial Baseline)] Oxygen Flow Rate (L/min) [2] Oxygen Flow Rate (L/min) [3] EtCo2 - Document during CPR and with ROSC 43 38 EtCo2 - Document during CPR and with ROSC [1 (Initial Baseline)] EtCo2 - Document during CPR and with ROSC [2] EtCo2 - Document during CPR and with ROSC [3] 12/28/24 00:51 12/28/24 01:00 12/28/24 01:33 Temperature 100 F H Temperature Source Oral Pulse Rate 124 H 86 75 Pulse Rate [1 (Initial Baseline)] Pulse Rate [2] Pulse Rate [3] Respiratory Rate 19 H 21 H 22 H Respiratory Rate [1 (Initial Baseline)] Respiratory Rate [2] Respiratory Rate [3] Respiratory Effort Respiratory Depth Respiratory Pattern Blood Pressure 114/73 87/62 L 93/61 Blood Pressure [2] Blood Pressure [3] Blood Pressure Mean 70 71 Baseline BP Pulse Ox 95 94 94 Oxygen Delivery Method Room Air Room Air Room Air Oxygen Delivery Method [1 (Initial Baseline)] Oxygen Delivery Method [2] Oxygen Delivery Method [3] Oxygen Flow Rate (L/min) Oxygen Flow Rate (L/min) [1 (Initial Baseline)] Oxygen Flow Rate (L/min) [2] Oxygen Flow Rate (L/min) [3] EtCo2 - Document during CPR and with ROSC 45 EtCo2 - Document during CPR and with ROSC [1 (Initial Baseline)] EtCo2 - Document during CPR and with ROSC [2] EtCo2 - Document during CPR and with ROSC [3] 12/28/24 02:00 12/28/24 03:00 Temperature 98.9 F 97.5 F L Temperature Source Oral Oral Pulse Rate 110 H 112 H Pulse Rate [1 (Initial Baseline)] Pulse Rate [2] Pulse Rate [3] Respiratory Rate 20 H 18 Respiratory Rate [1 (Initial Baseline)] Respiratory Rate [2] Respiratory Rate [3] Respiratory Effort Respiratory Depth Respiratory Pattern Blood Pressure 98/71 104/80 Blood Pressure [2] Blood Pressure [3] Blood Pressure Mean 80 88 Baseline BP Pulse Ox 95 96 Oxygen Delivery Method Room Air Room Air Oxygen Delivery Method [1 (Initial Baseline)] Oxygen Delivery Method [2] Oxygen Delivery Method [3] Oxygen Flow Rate (L/min) Oxygen Flow Rate (L/min) [1 (Initial Baseline)] Oxygen Flow Rate (L/min) [2] Oxygen Flow Rate (L/min) [3] EtCo2 - Document during CPR and with ROSC EtCo2 - Document during CPR and with ROSC [1 (Initial Baseline)] EtCo2 - Document during CPR and with ROSC [2] EtCo2 - Document during CPR and with ROSC [3] Positive well nourished and well developed General Appearance ED: well developed and NAD HEENT Reports moist mucous membranes normocephalic and atraumatic Eyes General Eye ED: Yes normal appearance of both eyes Neck full ROM Chest Wall Chest: Negative for tenderness Resp normal respiratory effort and normal air movement Effort and Inspection: symmetric chest movement; Negative for respiratory distress Cardio Rate: tachycardic Rhythm: abnormal rhythm Peripheral Pulses: pulses 2+ throughout GI normal to inspection, nondistended, normoactive bowel sounds and non-tender Palpation: Negative for guarding or rebound tenderness present Extremity Extremity Narrative: Right lower extremity: With dressing. General Extremety ED: Negative for edema or tenderness General Extremity: Negative for edema Neuro oriented x3 and no sensory deficits noted Sensorium / Orientation: awake and alert Skin Skin Narrative: Right upper extremity: PICC line clean, dry, intact. MDM MDM MDM Narrative Medical decision making narrative: Interventions / MDM: Differential diagnosis: Atrial fibrillation RVR, current treatment for hardware infection which has been removed Diagnosis considered but do not suspect: N/A My EKG interpretation: A-fib RVR rate 152, no ST or T wave changes. Imaging independently reviewed and interpreted by myself: 1 view chest x-ray: No acute process. External documents reviewed: N/A Test considered but not ordered:N/A ED course: Patient had recurrent A-fib with RVR he knows when he goes out of rhythm this was 90 minutes ago. He restarted his Xarelto after being off for 2 days at 7 PM. He is on Tikosyn. Being treated for Ex-Fix infection with the PICC line. No cough no vomiting or diarrhea. Labs were drawn. Blood pressure systolic 138. Heart rate ranging 120s to 140s. 2230: I spoke with covering syrup maker Dr. Mitchell, discussed patient's history of being off Xarelto for couple days however did restart it at 7 AM symptoms were known to restart 90 minutes prior to arrival. He states okay to cardiovert. Patient last ate at 5 PM. Discussed this with patient who agrees. Will set up for cardioversion. 0031: Written consent risk and benefits discussed with the patient. progressive care nurse, capnography pulse ox oxygenation up at 4 L as he has COPD on chronic 2 to 3 L at night. Patient initially given propofol 60 mg good analgesia performed, synchronized cardioversion attempted at 150, 175, 200 J. There is brief sinus that would back to atrial fibrillation. Additional 20 mg propofol was given, I attempted synchronized additional 200 J twice with pressure on the pads with 2 towels, brief sinus rhythm back to atrial fibrillation. I did give him 20 of IV Cardizem heart rate was going down to 70s 80s however still A-fib I did rediscuss with cardiology, discussed if increases can start Cardizem. 0305: Monitoring throughout still A-fib heart rate 100s to 110s. Blood pressure in the 90s. Electrolytes normal. I spoke with hospitalist Dr. Monson, we will order for oral Cardizem of 60. Will admit to PCU. Discussed current treatment for his bacteremia. Re-evaluation: stable Disposition discussed with patient/family/significant other: Patient Case discussed with consulting clinician: Cardiology, hospitalist This note was generated with [employer] dictation software. It may contain incorrect words, spelling, and punctuation that were not noted in checking the note before signing. Lab Data Attestation: I reviewed the patient's lab results. Labs: Laboratory Results - last 24 hr 12/27/24 23:34 WBC 6.0 RBC 5.02 Hgb 13.6 Hct 42.7 MCV 85.1 MCH 27.1 MCHC 31.9 L RDW Std Deviation 41.7 RDW Coeff of Tee 13.4 Plt Count 146 L MPV 10.3 Immature Gran % (Auto) 0.500 Neut % (Auto) 68.5 Lymph % (Auto) 17.2 L [place] % (Auto) 11.8 H Eos % (Auto) 1.3 Baso % (Auto) 0.7 Absolute Neuts (auto) 4.1 Absolute Lymphs (auto) 1.04 Nucleated RBC % 0 PT 15.4 H INR 1.2 APTT 28.4 Sodium 136 Potassium 3.7 Chloride 101 Carbon Dioxide 26.0 Anion Gap 9 BUN 9 Creatinine 0.79 Estim Creat Clear Calc 152.63 Est GFR (MDRD) Non-Af 106 BUN/Creatinine Ratio 10.9 Glucose 167 H Calcium 8.7 Radiography Diagnostic Testing: Clinical Impression(s) from Imaging Studies Chest X-Ray 12/27/24 23:40 IMPRESSION: No acute cardiopulmonary disease. Reading Location: [facility] Procedures Procedural Sedation 1 (Initial Baseline): Consent Signed: Yes Any Problems With Anesthesia: No You/Your family experience fever (hyperthermia) w/anesthesia: Unknown Sedation medication: Propofol Dose: 80 Route: IV Maliampati Score: Class III ASA Classification: III Critical Care Time Critical Care Time: Yes Critical care time (excluding procedures): 30-74 minutes, Discussing w/Patient &/or Family/Room Maid, Discussing w/Consultants, Arranging Admission or Transfer, Performing Direct Patient Care at Bedside and - (45 minutes) Discharge Plan Dx/Rx/DC Orders Clinical Impression: Atrial fibrillation with RVR, Bacteremia, Palpitations, Postoperative infection Disposition Disposition: Acute Care Hospital [facility] Discharge Date/Time: 12/28/24 04:06 What to do if you have Problems For any increased pain, shortness of breath, bleeding, nausea or vomiting, chest pain, or any unexpected problems, contact your Primary Care Provider. Call [facility] ([phone]) or report to the closest Emergency Room. Call 911 if necessary. 12/28/24 0542 <Electronically signed by Nguyễn Tavera> Cosigner Signature (if applicable): CC: Dr. Jhonatan Garcia DO ~ Signed [facility] Work Phone: [phone] 381-432808-02-2025 History and physical note [facility] Medical Records Department [address] [place] [address] H&P Exam - Hospitalist 12/28/24 0306 MR#: [id number] Acct: [id number] Name: CARLOS ALBERTO OHROWITZ Jr. Rep #:[id number] : 1970 54 From: Keagan Tavares DO PCP: Dr. Jhonatan Garcia, DO Status:ADM IN Location: [id number] - General General Date of Admission: 12/28/24 Date of Service: 12/28/24 Chief Complaint: Palpitations. HPI Narrative CARLOS ALBERTO HOROWITZ, is a 54 M with a past medical history of essential hypertension; on amlodipine, metoprololtwice daily plus hydrochlorothiazide and spironolactone, hyperlipidemia; on pravastatin and nexletol, morbid (class III) obesity; with BMI of 46.7 this admission, KOFFI; on CPAP, DM-2; of unknown control on dulaglutide, paroxysmal atrial fibrillation; s/p DCCV on dofetilide twice daily plus rivaroxaban, history of CHF, history of cardiomyopathy, former tobacco abuse with subsequent asthma/COPD; on fluticasone bupropion-salmeterol twice daily, depression with anxiety; on duloxetine and trazodone, muscle spasms; on tizanidine 3 times daily as needed, GERD; on omeprazole, gout; on allopurinol, OA,recent admission here on December 20, 2024 to December 21, 2024 for IV contra extravasation into his Right hand with subsequent swelling and blistering of hisRight hand and arm; with plastic surgery consulted and patient subsequently conservative treated with antibiotic ointment and recent history of displaced Right ankle fracture; s/p Ex-Fix with subsequent infection requiring RUE PICC line placement with patient to be on IV piperacillin-tazobactam with the patienton his 2nd of 8 weeks due to bacteremia with patient recently restarted on rivaroxaban at 7 PM yesterday evening who presents to [facility] complaining of palpitations. Mr. Horowitz reports his symptoms began ~90 minutes prior to arrival with the abrupt- onset of palpitations. He states the symptoms are typical of his previous boutsof atrial fibrillation with rapid ventricular response. He admits to associatedshortness of breath but he denies chest pain. He claims he has been taking his dofetilide as prescribed. He denies associated fever, chills, runny nose, sore throat, ear pain, cough, dysuria, hematuria, headache or rash. In the ER he underwent multiple unsuccessful attempts at DC cardioversion with atrial fibrillation; with rapid ventricular response at ~150 bpm requiring additional treatment with 20 mg IV Cardizem bolus x 1 with persistent RVR in the ~110 b eeper minute range requiring additional p.o. Cardizem with fever of 100 ?F in the setting of previously known postoperative infection of Right ankle fracture;s/p Ex-Fix with CXR that revealed no acute cardiopulmonary process. He was thenadmitted to the PCU for ongoing care for stay that is expectedto extend beyond 2 midnights. [facility] Medical History (Updated 12/28/24 @ 05:[address] Nguyễn Al, DO) Major depression Hypokalemia Paroxysmal atrial fibrillation Ankle fracture, right Insomnia Obstructive sleep apnea [...] 20 mg PO DAILY Unknown History release metoprolol succinate 100 mg 100 mg PO BID 12/19/24 Unk nown History tablet,extended release 24 hr potassium chloride 20 mEq 20 meq PO DAILY 12/19/24 Unk nown History tablet,extended release(part/cryst) pravastatin 40 mg tablet 40 mg PO DAILY 12/19/24 Unkn own History spironolactone 25 mg tablet 25 mg PO DAILY 12/19/24 Un known History tizanidine 2 mg tablet 2 mg PO Q8H PRN muscle spast icity 12/19/24 Unknown History trazodone 100 mg tablet [...] mcg/dose blistr powdr for inhalation (Advair Diskus) piperacillin-tazobactam 2.25 2.25 g IV Q8H 12/27/24 Un known History gram/50 mL in dextrose(iso) IV piggyback (Zosyn) Allergy/AdvReac Type Severity Reaction Status Date / Time Wbxjllj-VKH-BiX Reductase Allergy Mild Hives Verified 12/27/24 23:23 Inhibitor Iodinated Contrast Media AdvReac Intermediate Rash Verified 12/27/24 23:23 (contrast dye - iodinated) Social History housing: [facility] Smoking Status: Former smoker ROS ROS Narrative Review of Systems: Constitutional: Patient noted to have fever of 100 ?F present on admission but he denies chills or sweats. Eyes: Patient denies change in vision or discharge from eyes. ENT: Patient denies runny nose, sore throat or ear pain. Resp: Patient admits to shortness of breath that coincides with his A-fib; with RVR. He denies cough. CV: Patient admits to palpitations but he denies chest pain, heart racing or lower extremity edema. GI: Patient denies abdominal pain, nausea, vomiting, diarrhea or constipation. : Patient denies dysuria, hematuria or urinary frequency. MSK: Patient denies arthralgias or myalgias. Skin: Patient denies rash, abscess, wounds or jaundice. Psych: Patient denies symptoms of uncontrolled depression or anxiety. Neuro: Patient denies headache, paresthesias or focal neurologic deficits. Allergy: Patient denies lip swelling, tongue swelling or urticaria. Hematology: Patient admits to easy bleeding and easy bruisability on rivaroxaban. Endocrinology: Patient denies polyuria, polydipsia, polyphagia or heat/cold intolerance. 14 point ROS otherwise negative except for positives noted above in HPI. Vital Signs Vital Signs Vital Signs: 12/27/24 23:19 12/27/24 23:22 12/27/24 23:24 Temperature 100 F H 100 F H Temperature Source Oral Oral Pulse Rate 149 H 138 H Pulse Rate [1 (Initial Baseline)] Pulse Rate [2] Pulse Rate [3] Respiratory Rate 19 H 20 H Respiratory Rate [1 (Initial Baseline)] Respiratory Rate [2] Respiratory Rate [3] Respiratory Effort Short of Breath Respiratory Depth Normal Respiratory Pattern Normal Blood Pressure 127/96 H 127/96 H Blood Pressure [2] Blood Pressure [3] Blood Pressure Mean 106 106 Baseline BP Pulse Ox 93 93 Oxygen Delivery Method Room Air Room Air Room Air Oxygen Delivery Method [1 (Initial Baseline)] Oxygen Delivery Method [2] Oxygen Delivery Method [3] Oxygen Flow Rate (L/min) Oxygen Flow Rate (L/min) [1 (Initial Baseline)] Oxygen Flow Rate (L/min) [2] Oxygen Flow Rate (L/min) [3] EtCo2 - Document during CPR and with ROSC EtCo2 - Document during CPR and with ROSC [1 (Initial Baseline)] EtCo2 - Document during CPR and with ROSC [2] EtCo2 - Document during CPR and with ROSC [3] 12/28/24 00:11 12/28/24 00:30 12/28/24 00:31 Temperature 100.1 F H Temperature Source Pulse Rate 134 H Pulse Rate [1 (Initial Baseline)] 135 H Pulse Rate [2] 101 H Pulse Rate [3] 106 H Respiratory Rate 21 H Respiratory Rate [1 (Initial Baseline)] 21 H Respiratory Rate [2] 29 H Respiratory Rate [3] 26 H Respiratory Effort Respiratory Depth Respiratory Pattern Blood Pressure 109/58 L Blood Pressure [2] 102/87 H Blood Pressure [3] 119/91 H Blood Pressure Mean Baseline BP 109/58 Pulse Ox 97 Oxygen Delivery Method Nasal Cannula Oxygen Delivery Method [1 (Initial Baseline)] Nasal Cannula Oxygen Delivery Method [2] Nasal Cannula Oxygen Delivery Method [3] Nasal Cannula Oxygen Flow Rate (L/min) 2 Oxygen Flow Rate (L/min) [1 (Initial Baseline)] 4 Oxygen Flow Rate (L/min) [2] 4 Oxygen Flow Rate (L/min) [3] 4 EtCo2 - Document during CPR and with ROSC 41 18 EtCo2 - Document during CPR and with ROSC [1 (Initial Baseline)] 45 EtCo2 - Document during CPR and with ROSC [2] 47 EtCo2 - Document during CPR and with ROSC [3] 43 12/28/24 00:41 12/28/24 00:44 12/28/24 00:46 Temperature 100.0 F H Temperature Source Oral Pulse Rate 129 H 120 H 125 H Pulse Rate [1 (Initial Baseline)] Pulse Rate [2] Pulse Rate [3] Respiratory Rate 23 H 17 17 Respiratory Rate [1 (Initial Baseline)] Respiratory Rate [2] Respiratory Rate [3] Respiratory Effort Respiratory Depth Respiratory Pattern Blood Pressure 120/94 H 116/91 H 116/91 H Blood Pressure [2] Blood Pressure [3] Blood Pressure Mean 99 Baseline BP Pulse Ox 100 95 94 Oxygen Delivery Method Nasal Cannula Nasal Cannula Room Air Oxygen Delivery Method [1 (Initial Baseline)] Oxygen Delivery Method [2] Oxygen Delivery Method [3] Oxygen Flow Rate (L/min) 4 4 Oxygen Flow Rate (L/min) [1 (Initial Baseline)] Oxygen Flow Rate (L/min) [2] Oxygen Flow Rate (L/min) [3] EtCo2 - Document during CPR and with ROSC 43 38 EtCo2 - Document during CPR and with ROSC [1 (Initial Baseline)] EtCo2 - Document during CPR and with ROSC [2] EtCo2 - Document during CPR and with ROSC [3] 12/28/24 00:51 12/28/24 01:00 12/28/24 01:33 Temperature 100 F H Temperature Source Oral Pulse Rate 124 H 86 75 Pulse Rate [1 (Initial Baseline)] Pulse Rate [2] Pulse Rate [3] Respiratory Rate 19 H 21 H 22 H Respiratory Rate [1 (Initial Baseline)] Respiratory Rate [2] Respiratory Rate [3] Respiratory Effort Respiratory Depth Respiratory Pattern Blood Pressure 114/73 87/62 L 93/61 Blood Pressure [2] Blood Pressure [3] Blood Pressure Mean 70 71 Baseline BP Pulse Ox 95 94 94 Oxygen Delivery Method Room Air Room Air Room Air Oxygen Delivery Method [1 (Initial Baseline)] Oxygen Delivery Method [2] Oxygen Delivery Method [3] Oxygen Flow Rate (L/min) Oxygen Flow Rate (L/min) [1 (Initial Baseline)] Oxygen Flow Rate (L/min) [2] Oxygen Flow Rate (L/min) [3] EtCo2 - Document during CPR and with ROSC 45 EtCo2 - Document during CPR and with ROSC [1 (Initial Baseline)] EtCo2 - Document during CPR and with ROSC [2] EtCo2 - Document during CPR and with ROSC [3] 12/28/24 02:00 Temperature 98.9 F Temperature Source Oral Pulse Rate 110 H Pulse Rate [1 (Initial Baseline)] Pulse Rate [2] Pulse Rate [3] Respiratory Rate 20 H Respiratory Rate [1 (Initial Baseline)] Respiratory Rate [2] Respiratory Rate [3] Respiratory Effort Respiratory Depth Respiratory Pattern Blood Pressure 98/71 Blood Pressure [2] Blood Pressure [3] Blood Pressure Mean 80 Baseline BP Pulse Ox 95 Oxygen Delivery Method Room Air Oxygen Delivery Method [1 (Initial Baseline)] Oxygen Delivery Method [2] Oxygen Delivery Method [3] Oxygen Flow Rate (L/min) Oxygen Flow Rate (L/min) [1 (Initial Baseline)] Oxygen Flow Rate (L/min) [2] Oxygen Flow Rate (L/min) [3] EtCo2 - Document during CPR and with ROSC EtCo2 - Document during CPR and with ROSC [1 (Initial Baseline)] EtCo2 - Document during CPR and with ROSC [2] EtCo2 - Document during CPR and with ROSC [3] Weight Weight: 316 lb 3.2 oz Body Mass Index (BMI) 46.7 Physical Exam Const alert, oriented x3 and no apparent distress Constitutional Narrative: Morbidly obese with nontoxic appearance and patient appearing older than stated age. General Appearance: cooperative HEENT normocephalic, head/scalp atraumatic, hearing grossly normal bilaterally and moist oral mucous membranes Eyes PERRL, EOMs intact bilaterally and conjunctivae normal Neck no lymphadenopathy, supple and no JVD Resp normal respiratory effort, no retractions, no use of accessory muscles and clear to auscultation bilaterally Cardio Cardio Narrative: Irregularly irregular at ~110 bpm. GI normal to inspection, nondistended, normoactive bowel sounds, soft to palpation, non-tender and non-distended GI Narrative: Morbidly obese. Extremity normal to inspection, full ROM and no clubbing, cyanosis or edema Extremity Narrative: Patient has RUE PICC line with no signs of surrounding inflammation or infection. Skin Skin Narrative: Patient with evidence of recent Right ankle Ex-Fix with no evidence of rash, abscess, wounds or jaundice. Neuro oriented x3, CN's II-XII intact bilaterally, moves all extremities and no focal motor deficits Sensorium / Orientation: awake, alert, oriented to person, oriented to place and oriented to time Speech: speech normal Psych affect normal Results Lab / Micro Data 12/27/24 23:34 12/27/24 23:34 Labs: Laboratory Results - last 24 hr 12/27/24 23:34: WBC 6.0, RBC 5.02, Hgb 13.6, Hct 42.7, MCV 85.1, MCH 27.1, MCHC 31.9 L, RDW Std Deviation 41.7, RDW Coeff of Tee 13.4, Plt Count 146 L, MPV 10.3, Immature Gran % (Auto) 0.500, Neut % (Auto) 68.5, Lymph % (Auto) 17.2 L, [place] % (Auto) 11.8 H, Eos % (Auto) 1.3, Baso % (Auto) 0.7, Absolute Neuts (auto) 4.1, Absolute Lymphs (auto) 1.04, Nucleated RBC % 0, PT 15.4 H, INR 1.2, APTT 28.4,Sodium 136, Potassium 3.7, Chloride 101, Carbon Dioxide 26.0, Anion Gap 9, BUN 9, Creatinine 0.79, Estim Creat Clear Calc 152.63, Est GFR (MDRD) Non-Af 106, BUN/Creatinine Ratio 10.9, Glucose 167 H, Calcium 8.7 Imaging Radiology Impression Chest X-Ray 12/27/24 23:40 IMPRESSION: No acute cardiopulmonary disease. Reading Location: [id number] Assessment & Plan Assessment/Plan (1) Atrial fibrillation with RVR: (2) Chronic anticoagulation: (3) Fever: QUALIFIERS: Fever type: unspecified Qualified Code(s): R50.9 - Fever, unspecified (4) Postoperative infection: QUALIFIERS: Encounter type: sequela Postoperative infection type: unspecified type Qualified Code(s): T81.40XS - Infection following a procedure, unspecified, sequela (5) History of fracture of right ankle: (6) Morbid obesity with BMI of 45.0-49.9, adult: (7) Obstructive sleep apnea: (8) Palpitations: PLAN: Plan 1. Atrial Fibrillation; with Rapid Ventricular Response refractory to treatment with IV diltiazem and multiple attempts at DC cardioversion in the setting of known paroxysmal atrial fibrillation withpatient already on rivaroxaban and dofetilide - Admit to PCU. If patient's heart rate does not improve he will require treatment with IV amiodarone as his blood pressure is now 98 mm systolic. Check echocardiogram to evaluate LVEF. Serialize troponin. Check TSH. Finally, we will consult [facility] see this patient on rounds in the a.m. for further recommendations with help appreciated inadvance. 2. Fever of 100 ?F in the setting of previously known postoperative infection of Right ankle fracture; s/p Ex-Fix with RUE PICC already on IV piperacillin- tazobactam for projected 8 weeks complicating and likely precipitating #1 - Maintain IV piperacillin-tazobactam as previous. Give acetaminophen as needed for [id number] (level 1-5/10) pain or fever. Give oxycodone as needed for severe (level 6-10/10) pain. 3. Morbid (class III) obesity; with BMI of 46.7 this admission plus KOFFI; on CPAP adding to the burden of disease outlined in #1 & #2 - Weight loss will be recommended. Check TSH. This complicateshis case and may hamper recovery. 4. Recent admission here on December 20, 2024 to December 21, 2024 for IV contra extravasation into his Right hand with subsequent swelling and blistering of his Right hand and arm; with plastic surgery consulted and patient subsequently conservative treated with antibiotic ointment - Noted. 5. Essential hypertension; on amlodipine, metoprolol twice daily plus hydrochlorothiazide and spironolactone - Hold scheduled antihypertensives with relative hypotension noted at this time. 6. Hyperlipidemia; on pravastatin and nexletol - Maintain home regimen. 7. DM-2; of unknown control on dulaglutide - ADA/cardiac diet. FSBS q. AC/HS plus SSI. Check [id number] objectively assess quality of diabetic control. 8. History of CHF; of uncertain type - Echocardiogram pending for #1. Patient has no signs of volume overload at this time. 9. History of cardiomyopathy - Noted with echocardiogram pending for #1. 10. Former tobacco abuse with subsequent asthma/COPD; on fluticasone bupropion- salmeterol twice daily - Stable with no evidence of acute flare at this time. Minimize breathing treatments as much as possible to avoid exacerbating RVR. 11. Depression with anxiety; on duloxetine and trazodone - Resume present therapy. 12. Muscle spasms; on tizanidine 3 times daily as needed - Continue current treatment. 13. GERD; on omeprazole - Maintain PPI. 14. Gout; on allopurinol - Stable without evidence of acute flare at this time. Resume allopurinol as before. 15. OA - We will follow pain regimen and scales outlined in #2. 16. DVT prophylaxis - Patient is already on rivaroxaban for #1 which will be continued. Total time: Approximately (but not less than) 75 minutes. Charges/Coding Visit Charges Inpatient E&M: 95583 Init Hosp 12/28/24 0609 Cosigner Signature (if applicable): CC: Dr. Keagan Rowe DO; Dr. Jhonatan Garcia DO~ Signed [facility]08-02-2025 Discharge summary [facility] Medical Records Department [address] [place] [address] Emergency Department Summary 12/27/24 MR#: [id number] Acct: [id number] Name: CARLOS ALBERTO HOROWITZ Rep #:[id number] : 1970 54 From: Nguyễn Tavera PCP: Dr. Jhonatan Garcia DO Status:ADM IN Location: [place] [address] HPI History of Present Illness Chief Complaint: Shortness of Breath Informant: patient and EMS Narrative Narrative: Brought in by EMS from [facility] feeling he was back in A- fib 10 PM 90 minutes prior to arrival. History of A-fib for years followed by cardiology in [place] ([place]). He hadright ankle fracture displaced 8 weeks ago with Ex-Fix. He states Ex-Fix was removed 2 days ago with Xarelto held. He has been taking his Tikosyn. Xarelto restarted 7 PM this evening. Hestates infection of his Ex-Fix he is currently on antibiotics with a PICC line. No cough. Has dyspnea with his A-fib. Denies chest pains. Denies recent vomiting or diarrhea. Denies any urinary symptoms. Reports hehas been cardioverted in the past. Prior similar symptoms: Yes [facility] Medical History (Updated 12/28/24 @ 05:[address] Nguyễn Al, DO) Major depression Hypokalemia Paroxysmal atrial fibrillation Ankle fracture, right Insomnia Obstructive sleep apnea [...] 20 mg PO DAILY Unknown History release metoprolol succinate 100 mg 100 mg PO BID 12/19/24 Unk nown History tablet,extended release 24 hr potassium chloride 20 mEq 20 meq PO DAILY 12/19/24 Unk nown History tablet,extended release(part/cryst) pravastatin 40 mg tablet 40 mg PO DAILY 12/19/24 Unkn own History spironolactone 25 mg tablet 25 mg PO DAILY 12/19/24 Un known History tizanidine 2 mg tablet 2 mg PO Q8H PRN muscle spast icity 12/19/24 Unknown History trazodone 100 mg tablet [...] mcg/dose blistr powdr for inhalation (Advair Diskus) piperacillin-tazobactam 2.25 2.25 g IV Q8H 12/27/24 Un known History gram/50 mL in dextrose(iso) IV piggyback (Zosyn) Allergy/AdvReac Type Severity Reaction Status Date / Time Pdetbhn-VIV-PzC Reductase Allergy Mild Hives Verified 12/27/24 23:23 Inhibitor Iodinated Contrast Media AdvReac Intermediate Rash Verified 12/27/24 23:23 (contrast dye - iodinated) Social History housing: [facility] Smoking Status: Former smoker ROS ROS ED Constitutional Constitutional ED: Denies chills, fever(s) or sweats ENT ENT ED: Denies sore throat Cardiovascular Cardiovascular: Reports palpitations; Denies chest pain, leg edema or racing heartbeat Respiratory/Chest Respiratory/Chest: Reports dyspnea; Denies cough or dyspnea on exertion Gastrointestinal Gastrointestinal: Denies abdominal pain, diarrhea, nausea or vomiting Genitourinary Genitourinary ED: Denies dysuria, hematuria or urinary frequency Musculoskeletal Musculoskeletal: Denies back pain, extremity pain or neck pain Integumentary Denies rash or wounds Neurologic Neurologic: Denies headache(s), paresthesias or weakness EXAM Physical Exam Const Vital Signs: 12/27/24 23:19 12/27/24 23:22 12/27/24 23:24 Temperature 100 F H 100 F H Temperature Source Oral Oral Pulse Rate 149 H 138 H Pulse Rate [1 (Initial Baseline)] Pulse Rate [2] Pulse Rate [3] Respiratory Rate 19 H 20 H Respiratory Rate [1 (Initial Baseline)] Respiratory Rate [2] Respiratory Rate [3] Respiratory Effort Short of Breath Respiratory Depth Normal Respiratory Pattern Normal Blood Pressure 127/96 H 127/96 H Blood Pressure [2] Blood Pressure [3] Blood Pressure Mean 106 106 Baseline BP Pulse Ox 93 93 Oxygen Delivery Method Room Air Room Air Room Air Oxygen Delivery Method [1 (Initial Baseline)] Oxygen Delivery Method [2] Oxygen Delivery Method [3] Oxygen Flow Rate (L/min) Oxygen Flow Rate (L/min) [1 (Initial Baseline)] Oxygen Flow Rate (L/min) [2] Oxygen Flow Rate (L/min) [3] EtCo2 - Document during CPR and with ROSC EtCo2 - Document during CPR and with ROSC [1 (Initial Baseline)] EtCo2 - Document during CPR and with ROSC [2] EtCo2 - Document during CPR and with ROSC [3] 12/28/24 00:11 12/28/24 00:30 12/28/24 00:31 Temperature 100.1 F H Temperature Source Pulse Rate 134 H Pulse Rate [1 (Initial Baseline)] 135 H Pulse Rate [2] 101 H Pulse Rate [3] 106 H Respiratory Rate 21 H Respiratory Rate [1 (Initial Baseline)] 21 H Respiratory Rate [2] 29 H Respiratory Rate [3] 26 H Respiratory Effort Respiratory Depth Respiratory Pattern Blood Pressure 109/58 L Blood Pressure [2] 102/87 H Blood Pressure [3] 119/91 H Blood Pressure Mean Baseline BP 109/58 Pulse Ox 97 Oxygen Delivery Method Nasal Cannula Oxygen Delivery Method [1 (Initial Baseline)] Nasal Cannula Oxygen Delivery Method [2] Nasal Cannula Oxygen Delivery Method [3] Nasal Cannula Oxygen Flow Rate (L/min) 2 Oxygen Flow Rate (L/min) [1 (Initial Baseline)] 4 Oxygen Flow Rate (L/min) [2] 4 Oxygen Flow Rate (L/min) [3] 4 EtCo2 - Document during CPR and with ROSC 41 18 EtCo2 - Document during CPR and with ROSC [1 (Initial Baseline)] 45 EtCo2 - Document during CPR and with ROSC [2] 47 EtCo2 - Document during CPR and with ROSC [3] 43 12/28/24 00:41 12/28/24 00:44 12/28/24 00:46 Temperature 100.0 F H Temperature Source Oral Pulse Rate 129 H 120 H 125 H Pulse Rate [1 (Initial Baseline)] Pulse Rate [2] Pulse Rate [3] Respiratory Rate 23 H 17 17 Respiratory Rate [1 (Initial Baseline)] Respiratory Rate [2] Respiratory Rate [3] Respiratory Effort Respiratory Depth Respiratory Pattern Blood Pressure 120/94 H 116/91 H 116/91 H Blood Pressure [2] Blood Pressure [3] Blood Pressure Mean 99 Baseline BP Pulse Ox 100 95 94 Oxygen Delivery Method Nasal Cannula Nasal Cannula Room Air Oxygen Delivery Method [1 (Initial Baseline)] Oxygen Delivery Method [2] Oxygen Delivery Method [3] Oxygen Flow Rate (L/min) 4 4 Oxygen Flow Rate (L/min) [1 (Initial Baseline)] Oxygen Flow Rate (L/min) [2] Oxygen Flow Rate (L/min) [3] EtCo2 - Document during CPR and with ROSC 43 38 EtCo2 - Document during CPR and with ROSC [1 (Initial Baseline)] EtCo2 - Document during CPR and with ROSC [2] EtCo2 - Document during CPR and with ROSC [3] 12/28/24 00:51 12/28/24 01:00 12/28/24 01:33 Temperature 100 F H Temperature Source Oral Pulse Rate 124 H 86 75 Pulse Rate [1 (Initial Baseline)] Pulse Rate [2] Pulse Rate [3] Respiratory Rate 19 H 21 H 22 H Respiratory Rate [1 (Initial Baseline)] Respiratory Rate [2] Respiratory Rate [3] Respiratory Effort Respiratory Depth Respiratory Pattern Blood Pressure 114/73 87/62 L 93/61 Blood Pressure [2] Blood Pressure [3] Blood Pressure Mean 70 71 Baseline BP Pulse Ox 95 94 94 Oxygen Delivery Method Room Air Room Air Room Air Oxygen Delivery Method [1 (Initial Baseline)] Oxygen Delivery Method [2] Oxygen Delivery Method [3] Oxygen Flow Rate (L/min) Oxygen Flow Rate (L/min) [1 (Initial Baseline)] Oxygen Flow Rate (L/min) [2] Oxygen Flow Rate (L/min) [3] EtCo2 - Document during CPR and with ROSC 45 EtCo2 - Document during CPR and with ROSC [1 (Initial Baseline)] EtCo2 - Document during CPR and with ROSC [2] EtCo2 - Document during CPR and with ROSC [3] 12/28/24 02:00 12/28/24 03:00 Temperature 98.9 F 97.5 F L Temperature Source Oral Oral Pulse Rate 110 H 112 H Pulse Rate [1 (Initial Baseline)] Pulse Rate [2] Pulse Rate [3] Respiratory Rate 20 H 18 Respiratory Rate [1 (Initial Baseline)] Respiratory Rate [2] Respiratory Rate [3] Respiratory Effort Respiratory Depth Respiratory Pattern Blood Pressure 98/71 104/80 Blood Pressure [2] Blood Pressure [3] Blood Pressure Mean 80 88 Baseline BP Pulse Ox 95 96 Oxygen Delivery Method Room Air Room Air Oxygen Delivery Method [1 (Initial Baseline)] Oxygen Delivery Method [2] Oxygen Delivery Method [3] Oxygen Flow Rate (L/min) Oxygen Flow Rate (L/min) [1 (Initial Baseline)] Oxygen Flow Rate (L/min) [2] Oxygen Flow Rate (L/min) [3] EtCo2 - Document during CPR and with ROSC EtCo2 - Document during CPR and with ROSC [1 (Initial Baseline)] EtCo2 - Document during CPR and with ROSC [2] EtCo2 - Document during CPR and with ROSC [3] Positive well nourished and well developed General Appearance ED: well developed and NAD HEENT Reports moist mucous membranes normocephalic and atraumatic Eyes General Eye ED: Yes normal appearance of both eyes Neck full ROM Chest Wall Chest: Negative for tenderness Resp normal respiratory effort and normal air movement Effort and Inspection: symmetric chest movement; Negative for respiratory distress Cardio Rate: tachycardic Rhythm: abnormal rhythm Peripheral Pulses: pulses 2+ throughout GI normal to inspection, nondistended, normoactive bowel sounds and non-tender Palpation: Negative for guarding or rebound tenderness present Extremity Extremity Narrative: Right lower extremity: With dressing. General Extremety ED: Negative for edema or tenderness General Extremity: Negative for edema Neuro oriented x3 and no sensory deficits noted Sensorium / Orientation: awake and alert Skin Skin Narrative: Right upper extremity: PICC line clean, dry, intact. MDM MDM MDM Narrative Medical decision making narrative: Interventions / MDM: Differential diagnosis: Atrial fibrillation RVR, current treatment for hardware infection which hasbeen removed Diagnosis considered but do not suspect: N/A My EKG interpretation: A-fib RVR rate 152, no ST or T wave changes. Imaging independently reviewed and interpreted by myself: 1 view chest x-ray: No acute process. External documents reviewed: N/A Test considered but not ordered:N/A ED course: Patient had recurrent A-fib with RVR he knows when he goes out of rhythm this was 90 minutes ago. He restarted his Xarelto after being off for 2 days at 7 PM. He is on Tikosyn. Being treated for Ex-Fix infection with the PICC line. No cough no vomiting or diarrhea. Labs were drawn. Bloodpressure systolic 138. Heart rate ranging 120s to 140s. 2230: I spoke with covering syrup maker Dr. Mitchell, discussed patient's history of being off Xarelto for couple days however did restart it at 7 AM symptoms were known to restart 90 minutes prior to arrival. He states okay to cardiovert. Patient last ate at 5 PM. Discussed this with patient who agrees. Will set up for cardioversion. 0031: Written consent risk and benefits discussed with the patient. progressive care nurse, capnography pulse ox oxygenation up at 4 L as he has COPD on chronic 2 to 3 L at night. Patient initially given propofol 60 mg good analgesia performed, synchronized cardioversion attempted at 150, 175, 200 J. There is brief sinus that would back to atrial fibrillation. Additional 20 mg propofol was given, I attempted synchronized additional 200 J twice with pressure on the pads with 2 towels, brief sinus rhythm back to atrial fibrillation. I did give him 20 of IV Cardizem heart rate was going down to 70s 80s however still A-fib I did rediscuss with cardiology, discussed if increases can start Cardizem. 0305: Monitoring throughout still A-fib heart rate 100s to 110s. Blood pressure in the 90s. Electrolytes normal. I spoke with hospitalist Dr. Monson, we will order for oral Cardizem of 60. Will admit to PCU. Discussed current treatment for his bacteremia. Re-evaluation: stable Disposition discussed with patient/family/significant other: Patient Case discussed with consulting clinician: Cardiology, hospitalist This note was generated with [employer] dictation software. It may contain incorrect words, spelling, and punctuation that were not noted in checking the note before signing. Lab Data Attestation: I reviewed the patient's lab results. Labs: Laboratory Results - last 24 hr 12/27/24 23:34 WBC 6.0 RBC 5.02 Hgb 13.6 Hct 42.7 MCV 85.1 MCH 27.1 MCHC 31.9 L RDW Std Deviation 41.7 RDW Coeff of Tee 13.4 Plt Count 146 L MPV 10.3 Immature Gran % (Auto) 0.500 Neut % (Auto) 68.5 Lymph % (Auto) 17.2 L [place] % (Auto) 11.8 H Eos % (Auto) 1.3 Baso % (Auto) 0.7 Absolute Neuts (auto) 4.1 Absolute Lymphs (auto) 1.04 Nucleated RBC % 0 PT 15.4 H INR 1.2 APTT 28.4 Sodium 136 Potassium 3.7 Chloride 101 Carbon Dioxide 26.0 Anion Gap 9 BUN 9 Creatinine 0.79 Estim Creat Clear Calc 152.63 Est GFR (MDRD) Non-Af 106 BUN/Creatinine Ratio 10.9 Glucose 167 H Calcium 8.7 Radiography Diagnostic Testing: Clinical Impression(s) from Imaging Studies Chest X-Ray 12/27/24 23:40 IMPRESSION: No acute cardiopulmonary disease. Reading Location: [facility] Procedures Procedural Sedation 1 (Initial Baseline): Consent Signed: Yes Any Problems With Anesthesia: No You/Your family experience fever (hyperthermia) w/anesthesia: Unknown Sedation medication: Propofol Dose: 80 Route: IV Maliampati Score: Class III ASA Classification: III Critical Care Time Critical Care Time: Yes Critical care time (excluding procedures): 30-74 minutes, Discussing w/Patient &/or Family/CareGiver, Discussing w/Consultants, Arranging Admission or Transfer, Performing Direct Patient Care atBedside and - (45 minutes) Discharge Plan Dx/Rx/DC Orders Clinical Impression: Atrial fibrillation with RVR, Bacteremia, Palpitations, Postoperative infection Disposition Disposition: Acute Care Hospital [facility] Discharge Date/Time: 12/28/24 04:06 What to do if you have Problems For any increased pain, shortness of breath, bleeding, nausea or vomiting, chest pain, or any unexpected problems, contact your Primary Care Provider. Call [facility] ([phone]) or report to the closest Emergency Room. Call 911 if necessary. 12/28/24 0542 Cosigner Signature (if applicable): CC: Dr. Jhonatan Garcia, ~ Signed [facility]08-01-2025 Radiology Diagnostic study note [facility] Imaging Services [address] [place] [address] Chest 1 View (Portable) MR#: [id number] Acct: [id number] Name: CARLOS ALBERTO HOROWITZ Jr. Rep #: [id number] : 1970 M 54 From: Fabien Pelaez MD PCP: Dr. Jhonatan Garcia DO Status: REG ER Study:Chest 1 View (Portable) Date of Exam: 12/27/24 Exam# [id number] Ordering Dr: Nguyễn Al DO PROCEDURE: CHEST 1 VIEW (PORTABLE) 12/27/2024 REASON FOR EXAM: SOB TECHNIQUE: Frontal view of the chest. COMPARISON: 12/19/2024 FINDINGS: Devices: Right upper extremity PICC with catheter tip at the superior cavoatrialjunction. Lungs/Pleura: Clear. No pneumothorax or pleural effusion. Heart/Mediastinum: Mild cardiomegaly. Bones/Soft tissues: Within normal limits. RAD/Chest 1 View (Portable) IMPRESSION: No acute cardiopulmonary disease. Reading Location: [id number] CC: Dr. Jhonatan Garcia DO; Dr. Nguyễn Al DO ~ Multiple Wire Sawyer: Signed [facility]07-31-2025 Hospital Discharge instructions Patient Education 12/26/2024 15:53:13 Radiology- PICC Line 03/08/2024(CUSTOM) PALMYRA PICC Line Discharge Instructions Interventional Radiology [facility] Imaging Services [address] [place] [address] A PICC (peripherally inserted central catheter) is a senior care IV access device. A catheter is inserted in a vein with the catheter tip ending in a large vein close to the heart. It will allow for frequent intravenous medication administration or blood draws without starting an IV each time. Pleasefollow the instructions below to reduce the chance [...] on both ends. There are also sleeves soldat some drug stores that can be used [...] handout FAQs about Catheter-Associated Bloodstream Infections for moreimportant information on preventing PICC line infections. The PICC line will need to be flushed every week and after each use. Please speak to your primary physician to coordinate weekly flushes. Pain Control: Dquw-dbn-okwufii pain medication should be used for pain [...] instruction below: 8:00 am- 5:00 pm call [phone] After 24 hours, contact the physician who ordered this procedure for you. Special Instructions: Follow Up Care 12/23/2024 17:41:25 With:GIRMA CORREA Address: [address] [facility] [place] [address]- [phone] When:1-2 days Comments:Please call the office to schedule a hospital follow up appointment. With:MAYRA ELLIOTT BA, MD, Infectious Disease, Infectious Disease Group Address: [facility] [address] [place] [address]- [phone] When:Within 3 Week(s) With:NANI VIVEROS DO, Orthopedic Address: [address] [facility], [place] [address]- [phone] When:Within 1 Week(s) Comments:Please call office SARA to schedule follow up appointment in 1 week for repeat XRs and skin check. [facility] 07-31-2025 Note Discharge Instructions Thank you for allowing [facility] to assist you with your healthcare needs. [...] care. Follow Up Appointments Follow Up with LORSON, GIRMA PSYCHIATRIC CLINICAL NURSE SPECIALIST-CAR SHIFTER When:Within 1-2 days Where:[address] [facility] [place] [address]- [phone] Additional Information: Please call the office to schedule a hospital follow up appointment. Follow Up with MAYRA ELLIOTT BA, MD, Infectious Disease, Infectious Disease Group When:In 3 weeks Where:[facility] [address] [address]- [phone] Follow Up with NANI VIVEROS DO, Orthopedic When:In 1 week Where:[address] [facility], [place] [address] [phone] Additional Information: Please call office SARA to [...] Right ankle infection, Results Notify to: MAYRA ELLIOTT BA, MD, 6 weeks of IV cefazolin [...] Right ankle infection, Results Notify to: MAYRA ELLIOTT BA, MD, 6 weeks of IV cefazolin 2 g every 8 hours with end date February 04, 2025 obtain CBC, differential, CMP, ESR, CRP q. Monday while on IV antibiotics an... Transfer of Care Orders Electronically Signed By - Ordered -- 12/26/24 14:46:00 EDT, PERNELL SIMONS MD Transfer of Care Prognosis - Ordered -- Fair, Patient Aware: Yes Transfer of Care Rehab Potential - Ordered -- Rehab potential fair, 12/26/24 14:46:31 EDT Someone Will Contact You [...] Postoperative pain Duration: 7 Days Pickup at [facility]/pharmacy #4449 New ceFAZolin (CeFAZolin 2 gm IV Syringe) [...] by mouth Daily at bedtime Pharmacy Information [facility]/pharmacy #[id number]: [address], [place] [phone] What How Much When Comments Stop Taking [...] medication providers or retail pharmacies. Education Materials PALMYRA PICC Line Discharge Instructions Interventional Radiology [facility] [address] [place] [address] A PICC (peripherally inserted central catheter) is a exterminator termite IV access device. A catheter is inserted in a vein with the catheter tip ending in a large vein close to the heart. It will allow for frequent intravenous medication administration or blood draws without starting an IV each time. Pleasefollow the instructions below to reduce the chance [...] on both ends. There are also sleeves soldat some drug stores that can be used [...] handout FAQs about Catheter-Associated Bloodstream Infections for moreimportant information on preventing PICC line infections. The PICC line will need to be flushed every week and after each use. Please speak to your primary physician to coordinate weekly flushes. Pain Control: Zbur-udj-nznezva pain medication should be used for pain [...] instruction below: 8:00 am- 5:00 pm call [phone] After 24 hours, contact the physician who ordered this procedure for you. Special Instructions: Additional Information VACCINATE! IT SAVES LIVES! Members of the community who have not yet received the COVID-19 vaccine and would like to receive it can visit one of [facility] vaccine clinics. There are many vaccine clinic locations within the [facility]. For locations and available times, please visit [email or web address]/. It is important to note that some COVID mobile vaccine clinics are held outdoors and may be canceled in rainy or stormy conditions. To learn more about pediatric vaccinations (ages 5-11), we invite you to visit the [facility] webpage. https://www.[facility].org/pages/3780-Eemap-Hgtzhtowxwq-Ygxeeoclko-Hifbq-Lzc stions.htmlTo learn more about the COVID-19 vaccine, we invite you to visit the CDC website for a list of frequently asked questions.https://www.cdc.gov/coronavirus/2019-ncov/vaccines/faq.html [facility] Patient Portal Access Instructions: Stay connected with your healthcare team and access your personal medical information anytime with the [facility] Patient Portal. Please follow the directions below to create your Loc[facility]us account: 1.Access the email account you provided upon registration to the hospital/physician office.2.Look for an invitation email from [facility].3.Open the email and access the invitation link: AcceptInvitation to [facility].4.Fill in the required orr to create your account. To access your account, visit [email or web address]. Click the blue button labeled Access Patient [...] who you will allowto register on the [facility] Patient Portal for access to your information. You can also access the [facility] Patient Portal on the [facility] frida. Simply click on Patient Portal and then log into your account. If you would like to receive a full copy of your medical records, please contact the [facility] Medical Records Department by calling [phone], Monday through Monday between 8 a.m. and [...] Call your local pharmacy or go to http://bit.[employer]/4P7Bg3y to find one close to you.3.Make use of household items: Use cat litter or old coffee grounds to dispose medications if other options arenot available. Mix your drugs with these household products, seal them in an airtight container andthrow it into the garbage. Call [facility]: [phone] to be sure your drugs can be [...] and explained to me and I,CARLOS ALBERTO HOROWITZ JR understand my current condition and have read and understand these discharge instructions. I have received a written copy of the plan/instructions. If I have questions, I am aware that I should contact my d octor. Patient/Reacher Signature: Date/Time: Relationship to Patient: Witness Name/Signature: Date/Time: [facility] HospitalNmmmrboe46-01-6218 Procedure note VASCULAR ACCESS TEAM POST PROCEDURE NOTE PROCEDURE: Peripherally Inserted Central Catheter (PICC) INDICATION: _Long Term Antibiotics DETAILS: Consult for PICC placement received. Chart reviewed. Informed consent was obtained and verified prior to the procedure. The procedure was performed using a cap, mask, sterile gloves, sterilegown, and full-body fenestrated drape. Hand Hygiene was [...] Deny Amin RN on 12/26/2024 03:21 PM [facility] HospitalQoczifiq20-35-8599 Discharge summary Date of Service 12/26/24 Discharge [...] the right ankle spanning external fixator was r emoved. He tolerated the surgical intervention without complication. [...] IV antibiotics and faxed to Dr. Marshall [phone]. Allergies Contrast dye Statins myalgia Procedures Date of Service 12/24/2024 Indication/Consent Ray is a 54-year-old male who presented to [facility] ED with right ankle sprain cellulitis and surgical site infection. Patient had original injury on 10/17/2024 during which her right ankle spanning external fixator was placed for right ankle fracture dislocation. Patient tolerated procedure well andwas to have it removed on 12/11/2024. However patient experienced A-fib with RVR and was in the hospital for a period of time missing his follow-up appointment. Patient was evaluated while in [facility] ED and surgical intervention was recommended to [...] Surgeon(s) ANA LUISA DONOVAN DO (Primary Surgeon) Principal Administrative Clerk(s) Suze Mishra DO PGY 2 Adriano Mack DO PGY1 Adriano Brooke DO PGY1 Type of Anesthesia CHANTAL CARTER DO (Airworthiness Inspector) AUGUSTO BANDA APRN-TERRIE (Provider) Estimated Blood Loss 5 cc Consults Consult to Anesthesia - Ordered -- 12/23/24 19:29:00 EDT, surgery pending Consult to Physician - Ordered -- 12/24/24 1:07:00 EDLAUREN Gale TRAVIS DO, Routine, Right ankle infection Consult to [...] Date: December 23, 2024 Verified By: TRACE CLARK MD CLINICAL STATEMENT: IMPRESSION: Similar alignment of [...] tab(s) by mouth every 6 hours as neededfor pain for 7 Days. Refills: 0. ceFAZolin [...] in the rectum once a day as neededas needed for constipation. cetirizine (cetirizine 10 mg [...] needed as needed for low blood sugar. [id number] Milliliter by mouth every 4 hours as needed for cough/congestion. magnesium hydroxide (Milk of Magnesia 8% oral suspension)30 Milliliter by mouth daily at bedtime asneeded as needed for constipation. metoprolol (Toprol-XL 100 [...] mouth every 4 hours as needed as neededfor fever. acetaminophen (acetaminophen 325 mg oral tablet)2 tab(s) by mouth every 4 hours as needed as neededfor pain. acetaminophen (acetaminophen 650 mg rectal suppository)1 [...] with GIRMA CORREA When:Within 1-2 days Where:[facility] [place] [place] [address]- [phone] Additional Information: Please call the office to schedule a hospital follow up appointment. Follow Up with MAYRA ELLIOTT BA, MD, Infectious Disease, Infectious Disease Group When:In 3 weeks Where:[facility] [address] [phone] Follow Up with NANI VIVEROS DO, Orthopedic When:In 1 week Where:[address] [facility], [place] [phone] Additional Information: Please call office SARA to [...] Right ankle infection, Results Notify to: MAYRA ELLIOTT BA, MD, 6 weeks of IV cefazolin [...] Time Spent 50min Digitally Signed by PERNELL SIMOSN MD on 12/26/2024 03:11 PM [facility] HospitalDgpbcltp23-38-9364 Note Discharge Instructions Thank you for allowing [facility] to assist you with your healthcare needs. [...] When:Within 1-2 days Where:[address] [facility] [place] [address] [phone] Follow Up with MAYRA ELLIOTT BA, MD, Infectious Disease, Infectious Disease Group When:In 3 weeks Where:[facility] [address] [address] [phone] Follow Up with NANI VIVEROS DO, Orthopedic When:In 1 week Where:[address] [facility], [place] [phone] Additional Information: Please call office SARA to [...] Postoperative pain Duration: 7 Days Pickup at [facility]/pharmacy #5555 New ceFAZolin (CeFAZolin 2 gm IV Syringe) [...] by mouth Daily at bedtime Pharmacy Information [facility]/pharmacy #4605: [address], [place] [phone] What How Much When Comments Stop Taking [...] to receive it can visit one of [facility] vaccine clinics. There are many vaccine clinic locations within the [facility]. For locations and available times, please visit https://[email or web address].gov/. It is important to note that some COVID mobile vaccine clinics are held outdoors and may be canceled in rainy or stormy conditions. To learn more about pediatric vaccinations (ages 5-11), we invite you to visit the [facility] webpage. https://www.[facility].org/pages/2297-Hwnnx-Cuoeydvimko-Aaoedloosd-Pnzmp-Kyz stions.htmlTo learn more about the COVID-19 vaccine, we invite you to visit the CDC website for a list of frequently asked questions.https://www.cdc.gov/coronavirus/2019-ncov/vaccines/faq.html [facility] Patient Portal Access Instructions: Stay connected with your healthcare team and access your personal medical information anytime with the [facility] Patient Portal. Please follow the directions below to create your [facility] account: 1.Access the email account you provided upon registration to the hospital/physician office.2.Look for an invitation email from [facility].3.Open the email and access the invitation link: AcceptInvitation to [facility].4.Fill in the required orr to create your account. To access your account, visit [employer]. Click the blue button labeled Access Patient Portal and then log in with the username and password that you created in the steps above. You will be able to view your test results, lab results, a summary of your visits, upcoming appointments and more. There is also a convenient messaging option where you can send secure messages to your p Weftvider. In addition, you will have the ability to download any documents or summaries to your computer and/or send the information securely to a physician. Remember that your healthcare information is confidential, so carefully consider who you will allowto register on the [facility] Patient Portal for access to your information. You can also access the [facility] Patient Portal on the emidswhere frida. Simply click on Patient Portal and then log into your account. If you would like to receive a full copy of your medical records, please contact the [facility] Medical Records Department by calling [phone], Monday through Monday between 8 a.m. and [...] Call your local pharmacy or go to http://Zubka.[employer]/8T0Nx5k to find one close to you.3.Make use of household items: Use cat litter or old coffee grounds to dispose medications if other options arenot available. Mix your drugs with these household products, seal them in an airtight container andthrow it into the garbage. Call [facility]: [phone] to be sure your drugs can be [...] and explained to me and I,CARLOS ALBERTO HOROWITZ JR understand my current condition and have read and understand these discharge instructions. I have received a written copy of the plan/instructions. If I have questions, I am aware that I should contact my d octor. Patient/Reacher Signature: Date/Time: Relationship to Patient: Witness Name/Signature: Date/Time: Larry Lapkfpde49-09-0501 Note Discharge Instructions Thank you for allowing [...] Follow Up Appointments Follow Up with GIRMA CORRAE When:Within 1-2 days Where:[address] [place] [place] [phone] Follow Up with MAYRA ELLIOTT BA, MD, Infectious Disease, Infectious Disease Group When:In 3 weeks Where:[facility] [address] [place] [address] [phone] Follow Up with NANI VIVEROS DO, Orthopedic When:In 1 week Where:[address] [facility], [place] [phone] Additional Information: Please call office SARA to [...] Postoperative pain Duration: 7 Days Pickup at [facility]/pharmacy #1470 New ceFAZolin (CeFAZolin 2 gm IV Syringe) [...] by mouth Daily at bedtime Pharmacy Information [facility]/pharmacy #4605: [address], [place] [phone] What How Much When Comments Stop Taking [...] to receive it can visit one of [facility] vaccine clinics. There are many vaccine clinic locations within the [facility]. For locations and available times, please visit https://[email or web address].gov/. It is important to note that some COVID mobile vaccine clinics are held outdoors and may be canceled in rainy or stormy conditions. To learn more about pediatric vaccinations (ages 5-11), we invite you to visit the [facility] webpage. https://www.[facility].org/pages/8304-Iioon-Mwszjpcknpe-Ynrhggrmee-Rvvni-Ksy stions.htmlTo learn more about the COVID-19 vaccine, we invite you to visit the CDC website for a list of frequently asked questions.https://www.cdc.gov/coronavirus/2019-ncov/vaccines/faq.html [facility] Patient Portal Access Instructions: Stay connected with your healthcare team and access your personal medical information anytime with the [facility] Patient Portal. Please follow the directions below to create your [facility] account: 1.Access the email account you provided upon registration to the hospital/physician office.2.Look for an invitation email from [facility].3.Open the email and access the invitation link: AcceptInvitation to [facility].4.Fill in the required orr to create your account. To access your account, visit [email or web address]. Click the blue button labeled Access Patient [...] who you will allowto register on the [facility] Patient Portal for access to your information. You can also access the [facility] Patient Portal on the [facility] frida. Simply click on Patient Portal and then log into your account. If you would like to receive a full copy of your medical records, please contact the [facility] Medical Records Department by calling [phone], Monday through Monday between 8 a.m. and [...] Call your local pharmacy or go to http://bit.ly/7K0Pe1r to find one close to you.3.Make use of household items: Use cat litter or old coffee grounds to dispose medications if other options arenot available. Mix your drugs with these household products, seal them in an airtight container andthrow it into the garbage. Call [facility]: [phone] to be sure your drugs can be [...] and explained to me and I,CARLOS ALBERTO HOROWITZ JR understand my current condition and have read and understand these discharge instructions. I have received a written copy of the plan/instructions. If I have questions, I am aware that I should contact my d octor. Patient/Reacher Signature: Date/Time: Relationship to Patient: Witness Name/Signature: Date/Time: [facility] HospitalVauebybf47-52-[address] Simons called IV team to say patient is [...] no growth as of now. Informed Dr Simons that PICC will be placed today. Digitally Signed by SHAHEEN Allen on 12/26/2024 11:54 AM [facility] HospitalFiqlhssy41-41-[address] iSmons called IV team to say patient is [...] no growth as of now. Informed Dr Simons that PICC will be placed today. Digitally Signed by SHAHEEN Allen on 12/26/2024 11:54 AM [facility] HospitalDqvrwphi74-13-0346 Note Date of Service 12/25/24 Subjective 54 [...] antibiotics and fax results to attention Dr. Gann Nemr at [phone]. Objective Vitals and Measurements T: 36.7 C [...] surgical intervention. Plan for PICC line and senior care IV antibiotics per ID. He will remain [...] DC Disposition SNF Digitally Signed by PERNELL SIMONS MD on 12/25/2024 04:09 PM [facility] HospitalEkgornbr73-74-9552 Infectious disease Progress note Date of Service [...] (Oral) HR: 72 (Apical) RR: 18 BP: 121/69SpO2: 93% Intake and Output 7AM Yesterday to [...] Date: December 23, 2024 Verified By: TRACE CLARK MD CLINICAL STATEMENT: IMPRESSION: Similar alignment of [...] osteomyelitis as a result, will plan for 6weeks of IV antibiotics. Will transition cefepime and vancomycin to cefazolin 2 g every 8 hours. Plan will be 6 weeks of IV cefazolin 2 g every 8 hours with end date of February 04, 2025. Please obtain CBC, differential, CMP, ESR, CRP every Monday while on IV antibiotics and fax results to attention Dr. Elliott at [phone]. Please make outpatient follow-up with Dr. Elliott in 2 to 4 weeks time. Prescription [...] by ORI TOMLIN on 12/25/2024 02:20 PM [facility] HospitalQcwewvvu17-30-9216 Orthopaedic surgery Progress note Date of Service 12/25/2024 Subjective Right evaluated bedside this morning. Patient states that he is doing well. He states minimal pain to right lower extremity. We discussed plans to continue nonweightbearing status to right lower extremity and follow-up with Dr. Viveros in 1 week for x-rays, skin check and splint check. Patient deniesany numbness, tingling, weakness right lower extremity. 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 Viveros - Nonweightbearing right lower extremity - WBAT [...] Digitally Signed by ANA LUISA DONOVAN DO [facility] HospitalNxjlsgbc78-43-8495 Anesthesiology Consult note Patient: CARLOS ALBERTO HOROWITZ JR Age: 54 years Sex: Male : [...] CHANTAL WHEATLEY DO on 12/24/2024 06:46 PM [facility] HospitalZfwrkncp83-29-8986 Note* Exam Date Time Procedure Performing Provider Status 12/24/24 5:26 PM XR Fluoro 1-2 Hrs Tech Time Corin MOLINA MD; Auth (Verified) [id number] ORIGINAL EXAMINATION: SPOT FLUOROSCOPIC IMAGES 12/24/2024 5:26 [...] 3:52:11 AM Ordering Provider: ANA LUISA DONOVAN [facility] HospitalSzcivxwc53-87-1796 Orthopaedic surgery Consult note Date of Service 12/23/24 Reason for Consultation Right ankle surgical site infection Referring Physician Emergency department History of Present Illness Patient is a 54-year-old male presented to [facility] due to purulence coming from his external fixator. Of note, on 10-17-2024 he was treated with close reduction and external fixation with ankle spanning external fixator by Dr. Viveros at [facility]. Patient reports he did attend his [...] FARZAD GIL DO on 12/23/2024 07:38 PM [facility] HospitalLhfnztab73-49-4266 Anesthesiology Consult note Patient: CARLOS ALBERTO HOROWITZ JR Age: 54 years Sex: Male : [...] list: Medical Asthma exacerbation / SNOMED CT 1544180160 / Confirmed COPD exacerbation / SNOMED CT 1576914109 / Confirmed Atopic dermatitis / SNOMED CT 46986073 / Confirmed Atypical chest pain / SNOMED CT 541029846 / Confirmed Bacteremia / SNOMED CT 73559348 / Confirmed Morbid obesity with BMI of 40.0-44.9, adult / SNOMED CT 6809944660 / Confirmed Bronchitis / SNOMED CT 30597639 / Confirmed Cardiomyopathy / SNOMED CT 588876235 / Confirmed CHF with cardiomyopathy / SNOMED CT 51236103 / Confirmed Cough / SNOMED CT 26373918 / Confirmed Dental abscess / SNOMED CT 215231878 / Confirmed Depression / SNOMED CT 52544294 / Confirmed Dyspnea / SNOMED CT 376445449 / Confirmed Generalized anxiety disorder / SNOMED CT 56126626 / Confirmed Hypertension associated with type 2 diabetes mellitus / SNOMED CT 5372803888 / Confirmed Insomnia / SNOMED CT 871199177 / Confirmed LVH (left ventricular hypertrophy) / SNOMED CT 25973902 / Confirmed Moderate asthma / SNOMED CT 7010766361 / Confirmed Near syncope / SNOMED CT 1061734953 / Confirmed Chewing tobacco nicotine dependence / SNOMED CT 17571137 / Confirmed KOFFI (obstructive sleep apnea) / SNOMED CT 291755569 / Confirmed Right knee pain / SNOMED CT 6601751009 / Confirmed Paroxysmal atrial fibrillation / SNOMED CT 062957391 / Confirmed Screening for ischemic heart disease / SNOMED CT 655003630 / Confirmed Screening for colon cancer / SNOMED CT 644891357 / Confirmed Statin intolerance / SNOMED CT 2487040108 / Confirmed Tachyarrhythmia / SNOMED CT [id number] / Confirmed Type 2 diabetes mellitus with hemoglobin A1c goal of less than 7.0% / SNOMED CT 176733670 / Confirmed Type 2 diabetes mellitus with hyperlipidemia / SNOMED CT 610433918 / Confirmed Resolved: Anxiety / SNOMED CT 47535577 Resolved: BMI 45.0-49.9, adult / SNOMED CT 8789405512 Resolved: Diabetes mellitus / SNOMED CT 804379265 Resolved: Hyperlipidemia / SNOMED CT 85468201 Resolved: Hypertension / SNOMED CT 7218682639 Resolved: Mass of arm / SNOMED CT 216994916 Resolved: Morbid obesity / SNOMED CT 174051974 Resolved: Obstructive sleep apnea / SNOMED CT 286050880 Resolved: Prediabetes / SNOMED CT 8877784704 Resolved: Right flank pain / SNOMED CT 912556504 Canceled: (HFpEF) heart failure with preserved ejection fraction / SNOMED CT 3773400240 Canceled: Right otitis media / SNOMED CT 958229292438649 Canceled: Persistent atrial fibrillation / SNOMED CT 7655736498 Canceled: Wheezing / SNOMED CT 55138708, Active Problems (33) Asthma exacerbation Atopic dermatitis [...] Histories Past Medical History: Resolved Morbid obesity (430069572): Resolved. Diabetes mellitus (704250240): Resolved. Hypertension (8215983090): Resolved. BMI 45.0-49.9, adult (1002440140): Resolved. Anxiety (41312006): Resolved. Prediabetes (4592433929): Resolved. Obstructive sleep apnea (005040332): Resolved. Right flank pain (600665015): Resolved. Hyperlipidemia (41557788): Resolved. Mass of arm (326835108): Resolved. Family History: Cancer Father Heart disease Mother Grandparent Stroke Father Procedure history: Excision (593181556) on 03/25/2024 at 53 Years. 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 Cardioversion (520275584) on 12/23/2022 at 52 Years. Echocardiogram (0153965268) on 11/11/2022 at 52 Years. Comments: 03/20/2023 [...] atrial pressure is 15 mm Hg Elbow (2762294302). Comments: 07/11/2022 8:26 SHAHEEN Nunez - right [...] Oral37.0 DegC (DEC 24 14:59) Heart Rate Qifeqe57 bpm (DEC 24 08:10) GAI468 mmHg (DEC 24 14:59) DBP70 mmHg (DEC [...] Documentation reviewed: Current records. Assessment and Plan [place] [employer]hesi[employer] (ASA) physical status classification: [...] CHANTAL WHEATLEY DO on 12/24/2024 04:37 PM [facility]qge[facility]57[facility]34 Note Date of Service 12/24/24 Subjective 54 [...] Date: December 23, 2024 Verified By: TRACE CLARK MD CLINICAL STATEMENT: IMPRESSION: Similar alignment of [...] DC Disposition SNF Digitally Signed by PERNELL SIMONS MD on 12/24/2024 03:54 PM [facility] HospitalXpmisgeo64-74-2612 Infectious disease Consult note Date of Service 12/24/2024 Reason for Consultation Right ankle hardware infection Referring Physician Dr. Max History of Present Illness Patient is a 54-year-old male with past medical history of COPD, tobacco abuse, atrial fibrillation, type 2 diabetes, recent right ankle fracture requiring external fixation presents as a transfer from [place] on 12/23/2024 with worsening swelling, redness and [...] make his appointment as he was at [facility]. He states that he did not finish [...] Date: December 23, 2024 Verified By: TRACE CLARK MD CLINICAL STATEMENT: IMPRESSION: Similar alignment of [...] by ORI TOMLIN on 12/24/2024 03:13 PM [facility] HospitalKuvwqjol57-23-8995 Infectious disease Consult note Date of Service 12/24/2024 Reason for Consultation Right ankle hardware infection Referring Physician Dr. Max History of Present Illness Patient is a 54-year-old male with past medical history of COPD, tobacco abuse, atrial fibrillation, type 2 diabetes, recent right ankle fracture requiring external fixation presents as a transfer from [place] on 12/23/2024 with worsening swelling, redness and [...] make his appointment as he was at [facility]. He states that he did not finish [...] RR: 16 BP: 120/74 SpO2: 90% HT: 175 cm WT: 140 kg BMI: 45.71 Weight Dosing [...] Date: December 23, 2024 Verified By: TRACE CLARK MD CLINICAL STATEMENT: IMPRESSION: Similar alignment of [...] by ORI TOMLIN on 12/24/2024 03:13 PM [facility] HospitalYlubryzk98-42-1500 Note Date of Service Patient medically optimized [...] on current level. Digitally Signed by PERNELL SIMONS MD on 12/24/2024 07:21 AM [facility] HospitalUqupdavb22-25-1749 History and physical note [facility] Hospitalist History and Physical Date [...] Vitals Signs(Last 24 hrs)__Last Charted Minimum Maximum RRO162(DEC 23 17:42)132(DEC 23 17:42)132(DEC 23 17:42) DBP83(DEC [...] SONNY MAX MD on 12/23/2024 09:52 PM [facility] HospitalJmuinwdo27-65-5472 Note* Exam Date Time Procedure Performing Provider Status 12/23/24 9:45 PM XR Ankle Minimum 3 Views Right MICK LEGGETT MD; Auth (Verified) [id number] ORIGINAL EXAMINATION: THREE XRAY VIEWS OF THE [...] 12/23/2024 10:04:30 PM Ordering Provider: FARZAD GIL [facility] HospitalMigbxsnv84-27-9600 Note* Exam Date Time Procedure Performing Provider Status 12/23/24 9:44 PM XR Ankle Minimum 3 Views Left TRACE CLARK MD; Auth (Verified) [id number] ORIGINAL EXAMINATION: THREE XRAY VIEWS OF THE [...] resident's findings and interpretation. Interpreted by: Trace Clark Preliminary Report By: Guerda Louie Electronically signed By Trace Clark Dictated Date: 12/23/2024 9:50:21 PM Prelim Date: 12/23/2024 9:53:23 PM Sign Date: 12/23/2024 9:57:26 PM Ordering Provider: FARZAD GIL [facility] HospitalCdhzdjab68-26-5066 Orthopaedic surgery Consult note Date of Service 12/23/24 Reason for Consultation Right ankle surgical site infection Referring Physician Emergency department History of Present Illness Patient is a 54-year-old male presented to [facility] due to purulence coming from his external fixator. Of note, on 10-17-2024 he was treated with close reduction and external fixation with ankle spanning external fixator by Dr. Viveros at [facility]. Patient reports he did attend his [...] FARZAD GIL DO on 12/23/2024 07:38 PM [facility] HospitalEyksqwro96-39-0517 Evaluation + Plan noteExtracted from: Title:Clinical Document Author:SONNY MAX MD Date:12/23/24 [facility] Hospitalist History and Physical Date of Admission: patient is being admitted on December 23, 2024 Chief complaint: right ankle infection History of present illness: History is taken from talking with emergency room physician Dr. hre as well as talking with the patient. [...] Vitals Signs(Last 24 hrs)__Last Charted Minimum Maximum GII989(DEC 23 17:42)132(DEC 23 17:42)132(DEC 23 17:42) DBP83(DEC [...] Metabolic Panel 08/27/24 * N-Terminal proBNP 08/27/24 [facility] 07-26-2025 Discharge summary [facility] Medical Records Department [address] [place] [address] Transfer to [facility] MR#: [id number] Acct: [id number] Name: CARLOS ALBERTO HOROWITZ Jr. Rep #:[id number] : 1970 54 From: Farzad mejia MD PCP: Dr. Jhonatan Garcia, DO Status:ADM BRENNA Certification of patient admission REQUIRED AT TIME OF ADMISSION. I CERTIFY THAT POST-HOSPITAL ECF SERVICES ARE REQUIRED TO BE GIVEN ON AN IN-PATIENT BASIS BECAUSE OF THE ABOVE NAMED PATIENT'S NEED FOR CORRECTION CARE ON A CONTINUING BASIS FOR THE CONDITION(S) FOR WHICH HE/SHE WAS RECEIVING IN-PATIENT HOSPITAL SERVICES PRIOR TO HIS/HER TRANSFER TO THE [facility]. 12/21/24 0845 Diet Diet Order/Speech Therapy: INPATIENT [...] tissue disorders Allergies/Procedures Done in Hospital Allergies Lpqgkwd-UMG-AtH Reductase Inhibitor Allergy (Mild, Verified 12/20/24 13:07) [...] in before D/C Order can be placed): Long-Term Facility 12/21/24 0845 Cosigner Signature (if applicable): CC: Dr. Yaz Dee MD; Dr. Austin Estrada MD; Dr. Jhonatan Garcia DO ~ [facility]07-26-2025 Discharge summary [facility] Medical Records Department [address] [place] [address] Discharge Summary 12/21/24 1134 MR#: [id number] Acct: [id number] Name: CARLOS ALBERTO HOROWITZ Lucian Kelsey Rep #:[id number] : 1970 54 From: Farzad mejia MD PCP: Dr. Jhonatan Garcia DO Status:ADM BRENNA Location: [place] [address] Providers Date of Admission: 12/20/24 Primary Care [...] 31 Hospital Course: Per HPI: CARLOS ALBERTO HOROWITZ, is j50-xvdr-vep male history of hypertension, gout, cardiomyopathy, GERD, diabetes, depression and anxiety, KOFFI who presented [facility] ED 12/20/2024 for right hand pain, [...] 76.3 H, Lymph % (Auto) 10.6 L, [place] % (Auto) 10.6 H, Eos % (Auto) [...] (Auto) 68.8, Lymph % (Auto) 15.1 L, [place] % (Auto) 13.4 H, Eos % (Auto) [...] swelling. No significant bony abnormality Reading Location: [id number]-PYTRGIF-XN D/C Instructions DC O2, CPAP, BIPAP Needs [...] in before D/C Order can be placed): Long-Term Facility Charges/Coding Visit Charges Inpatient E&M: 73199 Disch Hosp >30min 12/21/24 1138 Cosigner Signature (if applicable): CC: Dr. Farzad Camilo MD; Dr. Jhonatan Garcia DO~ Signed [facility]07-26-[facility] Progress note Author Austin Estrada [facility] Note Date/Time December 21, 2024 8:23 am [facility] Medical Records Department [address] [place] [address] Progress Note - Surgery 12/21/24 0807 MR#: [id number] Acct: [id number] Name: CARLOS ALBERTO HOROWITZ Jr. Rep #:[id number] : 1970 54 From: Austin Estrada MD PCP: Dr. Jhonatan Garcia DO Status:ADM BRENNA Location: [facility] EW898-7 Subjective Subjective Much improvement in right hand [...] 76.3 H, Lymph % (Auto) 10.6 L, [place] % (Auto) 10.6 H, Eos % (Auto) [...] (Auto) 68.8, Lymph % (Auto) 15.1 L, [place] % (Auto) 13.4 H, Eos % (Auto) [...] swelling. No significant bony abnormality Reading Location: [facility] Physical Exam Narrative Right upper Extremity Inspection: [...] the plan Charges/Coding Visit Charges Inpatient E&M: 27649 Subs Hosp L1 12/21/24 0894 <Electronically signed by Austin Estrada MD> Cosigner Signature (if applicable): CC: ~ Signed [facility] Work Phone: 1(936) 913-676307-26-2025 Progress note [facility] Medical Records Department [address] [place] [address] Progress Note - Surgery 12/21/24806 MR#: [id number] Acct: [id number] Name: CARLOS ALBERTO HOROWITZ Jr. Rep #:[id number] : 1970 54 From: Austin Estrada MD PCP: Dr. Jhonatan Garcia, DO Status:ADM BRENNA Location: [facility]3 VY215-9 Subjective Subjective Much improvement in right hand [...] 76.3 H, Lymph % (Auto) 10.6 L, [place] % (Auto) 10.6 H, Eos % (Auto) [...] (Auto) 68.8, Lymph % (Auto) 15.1 L, [place] % (Auto) 13.4 H, Eos % (Auto) [...] swelling. No significant bony abnormality Reading Location: [id number]-[id number]-KQ Physical Exam Narrative Right upper Extremity Inspection: [...] the plan Charges/Coding Visit Charges Inpatient E&M: 47732 Subs Hosp L1 12/21/24 0823 Cosigner Signature (if applicable): CC: ~ Signed [facility]07-25-2025 History and physical note Author Yaz Dee [facility] Note Date/Time December 20, 2024 6:31 pm [facility] Medical Records Department [address] [place] [address] H&P Exam - Hospitalist 12/20/24 175 MR#: [id number] Acct: [id number] Name: WARREN,CARLOS ALBERTO Epstein Jr. Rep #:[id number] : 1970 54 From: Yaz Dee MD PCP: Dr. Jhonatan Garcia, DO Status:ADM BRENNA [facility] - General General Date of Admission: 12/20/24 Date of Service: 12/20/24 Chief Complaint: Right hand pain and swelling HPI Narrative CARLOS ALBERTO HOROWITZ, is a58-qmvf-coq male history of hypertension, gout, cardiomyopathy, GERD, diabetes, depression and anxiety, KOFFI who presented [facility] ED 12/20/2024 for right hand pain, [...] but no other new or acute complaints [facility] Medical History Ankle fracture, right Insomnia [...] Type Severity Reaction Status Date / Time Uhkktdg-KER-WdL Reductase Allergy Mild Hives Verified 12/20/24 13:07 Inhibitor Social History housing: [facility] Smoking Status: Former smoker ROS ROS Narrative [...] 76.3 H, Lymph % (Auto) 10.6 L, [place] % (Auto) 10.6 H, Eos % (Auto) [...] swelling. No significant bony abnormality Reading Location: JKU-VKWWVWQ-HO Assessment & Plan Assessment/Plan (1) Localized swelling [...] Dee MD Charges/Coding Visit Charges Inpatient E&M: 96127 Init Hosp L2 12/20/24 1831 <Electronically signed by Yaz Dee MD> Cosigner Signature (if applicable): CC: Dr. Yaz Dee MD; Dr. Jhonatan Garcia DO~ Signed [facility] Work Phone: 1(469) 395-200707-25-2025 History and physical note Author Yaz Dee [facility] Note Date/Time December 20, 2024 6:31 pm [facility] Medical Records Department [address] [place] [address] H&P Exam - Hospitalist 12/20/24 1752 MR#: [id number] Acct: [id number] Name: CARLOS ALBERTO HOROWITZ . Rep #:[id number] : 1970 54 From: Yaz Dee MD PCP: Dr. Jhonatan Garcia, Status:ADM BRENNA Location[place] [facility] FK254-9 HPI - General General Date of Admission: 12/20/24 Date of Service: 12/20/24 Chief Complaint: Right hand pain and swelling HPI Narrative CARLOS ALBERTO HOROWITZ, is d37-cspu-hiq male history of hypertension, gout, cardiomyopathy, GERD, diabetes, depression and anxiety, KOFFI who presented [facility] ED 12/20/2024 for right hand pain, [...] but no other new or acute complaints [facility] Medical History Ankle fracture, right Insomnia [...] Type Severity Reaction Status Date / Time Iourjgx-DXZ-IsL Reductase Allergy Mild Hives Verified 12/20/24 13:07 Inhibitor Social History housing: [facility] Smoking Status: Former smoker ROS ROS Narrative [...] 76.3 H, Lymph % (Auto) 10.6 L, [place] % (Auto) 10.6 H, Eos % (Auto) [...] swelling. No significant bony abnormality Reading Location: SAD-HINLNPP-EE Assessment & Plan Assessment/Plan (1) Localized swelling [...] Dee MD Charges/Coding Visit Charges Inpatient E&M: 26919 Init Hosp L2 12/20/24 1831 <Electronically signed by Yaz Dee MD> Cosigner Signature (if applicable): CC: Dr. Yaz Dee MD; Dr. Jhonatan Garcia, DO~ Signed [facility] Work Phone: 1(487) 420-345607-25-2025 Evaluation note* Diagnosis Onset Date Resolution Status Admit Date IV infiltrate acute December 20, 2024 5:52pm Localized swelling on right hand acu te December 20, 2024 5:52pm [facility] Work Phone: 1(431) 366-899307-25-2025 Evaluation note* Diagnosis Onset Date Resolution Status Admit Date Extravasation of intravenous contrast medium acute December 20, 2024 5:52pm IV infiltrate acute December 20, 2024 5:52pm Localized swelling on right hand acu te December 20, 2024 5:52pm Swelling of right hand acute Ju ly 2024 5:52pm [facility] Work Phone: 1(249) 636-984307-25-2025 Evaluation note* Diagnosis Onset Date Resolution Status Admit Date Extravasation of intravenous contrast medium acute December 20, 2024 5:52pm IV infiltrate acute December 20, 2024 5:52pm Localized swelling on right hand acu te December 20, 2024 5:52pm Swelling of right hand acute Ju ly 2024 5:52pm Atrial fibrillation with RVR acute December 28, 2024 3:27am Chronic anticoagulation acute A ugust 2024 3:27am Fever acute December 28 3:27am History of fracture of right ankle acute December 28, 2024 3:27am Morbid obesity with BMI of 45.0-49.9, adult acute December 28 3:27am Obstructive sleep apnea acute A ugust 2024 3:27am Palpitations acute December 28, 2024 3:27am Postoperative infection acute A ugust 2024 3:27am [facility] Work Phone: 1([phone]) 144-167807-25-2025 Evaluation note* Diagnosis Onset Date Resolution Status Admit Date Extravasation of intravenous contrast medium acute December 20, 2024 5:52pm IV infiltrate acute December 20, 2024 5:52pm Localized swelling on right hand acu te December 20, 2024 5:52pm Swelling of right hand acute Ju 2024 5:52pm Atrial fibrillation with RVR acute December 28, 2024 3:48am Chronic anticoagulation acute A ugust 2024 3:48am Fever acute December 28 3:48am History of fracture of right ankle acute December 28, 2024 3:48am Morbid obesity with BMI of 45.0-49.9, adult acute December 28 3:48am Obstructive sleep apnea acute A ugust 2024 3:48am Palpitations acute December 28, 2024 3:48am Postoperative infection acute [facility] 2024 3:48am [facility] Work Phone: 1([phone]) 761-712607-25-2025 Discharge summary Author Robles Botello [facility] Note Date/Time December 20, 2024 4:57 pm [facility] Medical Records Department [address] [place] [address] Emergency Department Summary 12/20/24 MR#: [id number] Acct: [id number] Name: CARLOS ALBERTO HOROWITZ JrEverett Rep #:[id number] : 1970 54 From: Robles Botello MD [...] swelling but is also very itchy. [facility] Medical History Ankle fracture, right Insomnia Obstructive [...] Type Severity Reaction Status Date / Time Osohmys-UXB-XcP Reductase Allergy Mild Hives Verified 12/20/24 13:07 Inhibitor Social History housing: [facility] Smoking Status: Former smoker ROS ROS ED [...] 76.3 H Lymph % (Auto) 10.6 L [place] % (Auto) 10.6 H Eos % (Auto) [...] swelling. No significant bony abnormality Reading Location: [facility] Management Discussion w/another healthcare provider: Hospitalist and Ham Passer Discharge Plan Dx/Rx/DC Orders Clinical Impression: Swelling of right hand, Extravasation of intravenous contrast medium Disposition Disposition: Acute Care Hospital [facility] What to do if you have Problems For any increased pain, shortness of breath, bleeding, nausea or vomiting, chestpain, or any unexpected problems, contact your Primary Care Provider. Call [facility] ([phone]) or report to the closest Emergency Room. Call 911 if necessary. 12/20/247 <Electronically signed by Robles Botello MD> Cosigner Signature (if applicable): CC: Dr. Jhonatan Garcia, DO ~ Signed [facility] Work Phone: 1(710) 762-711007-25-2025 History and physical note [facility] Medical Records Department [address] [place] [address] H&P Exam - Hospitalist 12/20/24 1752 MR#: [id number] Acct: [id number] Name: CARLOS ALBERTO HOROWITZ Jr. Rep #:[id number] : 1970 54 From: Yaz Dee MD PCP: Dr. Jhonatan Garcia, DO Status:ADM BRENNA [facility] HPI - General General Date of Admission: 12/20/24 Date of Service: 12/20/24 Chief Complaint: Right hand pain and swelling HPI Narrative CARLOS ALBERTO HOROWITZ, is s68-okvu-ewd male history of hypertension, gout, cardiomyopathy, GERD, diabetes, depression and anxiety, KOFFI who presented [facility] ED 12/20/2024 for right hand pain, [...] 01 but no other new oracute complaints [facility] Medical History Ankle fracture, right Insomnia [...] Type Severity Reaction Status Date / Time Hhzwszx-ITW-TwE Reductase Allergy Mild Hives Verified 12/20/24 13:07 Inhibitor Social History housing: [facility] Smoking Status: Former smoker ROS ROS Narrative [...] 76.3 H, Lymph % (Auto) 10.6 L, [place] % (Auto) 10.6 H, Eos % (Auto) [...] swelling. No significant bony abnormality Reading Location: [facility] Assessment & Plan Assessment/Plan (1) Localized swelling [...] Dee MD Charges/Coding Visit Charges Inpatient E&M: 22884 Init Hosp L2 12/20/24 1831 Cosigner Signature (if applicable): CC: Dr. Yaz Dee MD; Dr. Jhonatan Garcia, ~ Signed [facility]07-25-2025 Consult note Author Austin [facility]kaden [facility] Note Date/Time December 20, 2024 4:04 pm [facility] Medical Records Department [address] [place] [address] Consultation - Surgical 12/20/24 1439 MR#: [id number] Acct: [id number] Name: CARLOS ALBERTO HOROWITZ Jr. Rep #:[id number] : 1970 54 From: Austin Estrada MD PCP: Dr. Jhonatan Garcia, Status:REG ER Location: ED Assessment & Plan [...] 12/20/24 HPI Narrative HPI Narrative: CARLOS ALBERTO HOROWITZ is a 54 M who presents for right dorsal hand swelling and pain after IV infiltrate yesterday while getting contrast solution injected for CT scan. Patient has been in a [facility] recently secondary to immobility because of aright lower extremity external fixator. He presented to the emergency department yesterday for chest pain and was getting a CT scan to rule out a DVT PE. He was discharged home to the [facility] last night and return today for the [...] of atrial fibrillation and is on Coumadin. [facility] Medical History Ankle fracture, right Insomnia [...] Type Severity Reaction Status Date / Time Mofcxhz-UOI-VuF Reductase Allergy Mild Hives Verified 12/20/24 13:07 Inhibitor Social History housing: [facility] Smoking Status: Former smoker Physical Exam Narrative [...] Charges/Coding Visit Charges Office Visits / Consults: 46384 OV L3 New 30min 12/20/24 1604 <Electronically signed by Austin Estrada MD> Cosigner Signature (if applicable): CC: Dr. Jhonatan Garcia, DO~ Signed [facility] Work Phone: 1(208) 174-846707-25-2025 Discharge summary [facility] Medical Records Department [address] [place] [address] Emergency Department Summary 12/20/24 MR#: [id number] Acct: [id number] Name: CARLOS ALBERTO HOROWITZ Jr. Rep #:[id number] : 1970 54 From: Robles Botello MD PCP: Dr. Jhonatan Garcia, Status:REG ER Location: ED HPI History of [...] swelling but is also very itchy. [facility] Medical History Ankle fracture, right Insomnia Obstructive [...] Type Severity Reaction Status Date / Time Adcqjdu-LBM-QaI Reductase Allergy Mild Hives Verified 12/20/24 13:07 Inhibitor Social History housing: [facility] Smoking Status: Former smoker ROS ROS ED [...] 76.3 H Lymph % (Auto) 10.6 L [place] % (Auto) 10.6 H Eos % (Auto) [...] swelling. No significant bony abnormality Reading Location: [facility] Management Discussion w/another healthcare provider: Hospitalist and [facility] Passer Discharge Plan Dx/Rx/DC Orders Clinical Impression: Swelling of right hand, Extravasation of intravenous contrast medium Disposition Disposition: Acute Care Hospital [facility] What to do if you have Problems For any increased pain, shortness of breath, bleeding, nausea or vomiting, chestpain, or any unexpected problems, contact your Primary Care Provider. Call [facility] ([phone]) or report tothe closest Emergency Room. Call 911 if necessary. 12/20/24 2127 Cosigner Signature (if applicable): CC: Dr. Jhonatan Garcia, ~ Signed [facility]07-25-2025 Consult note [facility] Medical Records Department [address] [place] [address] Consultation - Surgical 12/20/24 0687 MR#: [id number] Acct: [id number] Name: CARLOS ALBERTO HOROWITZ Jr. Rep #:[id number] : 1970 54 From: Austin Estrada MD [...] 12/20/24 HPI Narrative HPI Narrative: CARLOS ALBERTO HOROWITZ is a 54 M who presents for right dorsal hand swelling and pain after IV infiltrate yesterday while getting contrast solution injected for CT scan. Patient has been in a [facility] recently secondary to immobility because of aright lower extremity external fixator. He presented to the emergency department yesterday for chest pain and was getting a CT scan to rule out a DVT PE. [facility] and return today for the [...] of atrial fibrillation and is on Coumadin. [facility] Medical History Ankle fracture, right Insomnia [...] Type Severity Reaction Status Date / Time Kirmhhv-QHI-PqV Reductase Allergy Mild Hives Verified 12/20/24 13:07 Inhibitor Social History housing: [facility] Smoking Status: Former smoker Physical Exam Narrative [...] Charges/Coding Visit Charges Office Visits / Consults: 90226 OV L3 New 30min 12/20/24 1604 Cosigner Signature (if applicable): CC: Dr. Jhonatan Garcia DO~ Signed [facility]07-25-2025 Radiology Diagnostic study note [facility] Imaging Services [address], [place] [id number] Hand Min 3 Views MR#: [id number] Acct: [id number] Name: CARLOS ALBERTO HOROWITZ JrEverett Rep #: [id number] : 1970 M 54 From: Nevaeh Lundberg MD PCP: Dr. Jhonatan Garcia DO Status: REG ER Study:Hand Min 3 Views Date of Exam: Exam# [id number] Ordering Dr: Refugio Botello MD PROCEDURE: HAND [...] swelling. No significant bony abnormality Reading Location: [id number] CC: Dr. Robles Botello MD; Dr. Jhonatan Garcia DO ~ Multiple Wire Sawyer: Signed [facility]07-25-2025 Radiology Diagnostic study note [facility] Imaging Services [address] [place] [address] CTA Chest W/WO Contrast MR#: [id number] Acct: [id number] Name: CARLOS ALBERTO HOROWITZ Jr. Rep #: [id number] : 1970 M 54 From: Whitley Presley MD PCP: Dr. Jhonatan Garcia DO Status: REG ER Study:CTA Chest W/WO Contrast Date of Exam: 12/20/24 Exam# [id number] Ordering Dr: Nguyễn Al DO PROCEDURE: CTA [...] No embolism, dissection, or pneumonia. Reading [facility] CC: Dr. Jhonatan Garcia DO; Dr. Nguyễn Al DO ~ Multiple Wire Sawyer: Signed [facility]07-24-2025 Radiology Diagnostic study note [facility] Imaging Services [address] [place] [address] Chest 1 View (Portable) MR#: [id number] Acct: [id number] Name: CARLOS ALBERTO HOROWITZ Jr. Rep #: [id number] : 1970 M 54 From: Britney Avalos MD PCP: STACEY Pena Status: PRE E R Study:Chest 1 View (Portable) Date of Exam: 12/19/24 Exam# [id number] Ordering Dr: Nguyễn Al DO PROCEDURE: CHEST [...] atelectasis, or edema also possible. Reading Location: [id number] CC: BAY-[facility] Girma Correa; Dr. Nguyễn Al DO ~ Multiple Wire Sawyer: Signed [facility]07-20-2025 Hospital Discharge instructionsAdditional Instructions Plastic surgery discharge instructions Continue elevation of the right upper extremity especially at night and when lying in bed for the next several days for the swelling to decrease Recommend bacitracin or Neosporin and Band-Aids for any skin excoriations on the dorsum of the right hand secondary to the blistering. [facility]: 1(250) 882-979207-18-2025 Hospital Discharge instructions Patient Education 12/13/2024 10:21:44 [...] breathing. Follow these instructions at home: Take twzk-erc-owfxcvb and prescription medicines only as told by [...] 05/20/2014 Document Revised: 04/27/2018 Document Reviewed: 11/30/2016 [employer] Patient Education 2020 [employer]. Follow Up Care 12/10/2024 23:38:17 With:GIRMA CORREA Address: [address] [place] [address] [phone] When: Unknown Comments:Please call to schedule with your PCP when you discharge from [facility]. With:NANI VIVEROS DO Orthopedic Address: [address] [place] [address] [phone] When:2-4 days Comments:Please call to schedule to have the external fixator removed. [facility] 07-18-2025 Note Discharge Instructions Thank you for allowing [facility] to assist you with your healthcare needs. The following is importantdischarge information regarding your hospital visit. Your Care Team [facility] Your Diagnosis Acute respiratory failure with hypoxia Bacteremia Chest pain CHF with cardiomyopathy COPD exacerbation HTN (hypertension) Morbid obesity with BMI of 40.0-44.9, adult Paroxysmal atrial fibrillation Sheltered homelessness Shortness of breath Type 2 diabetes mellitus with hyperlipidemia What to do next Follow Up Appointments Follow Up with GIRMA CORREA Where:[address] [place] [address] [phone] Additional Information: Please call to schedule with your PCP when you discharge from [facility]. Follow Up with NANI VIVEROS DO Orthopedic When:Within 2-4 days Where:[address] [facility], [place] [address] [phone] Additional Information: Please call to schedule to [...] breathing. Follow these instructions at home: Take wwih-qtb-fdvigsr and prescription medicines only as told by [...] 05/20/2014 Document Revised: 04/27/2018 Document Reviewed: 11/30/2016 [employer] Patient Education 2020 [employer] Additional Information VACCINATE! IT SAVES LIVES! Members of the community who have not yet received the COVID-19 vaccine and would like to receive it can visit one of [facility] vaccine clinics. There are many vaccine clinic locations within the [facility]. For locations and available times, please visit https://gettheshot.coronavirus.[place].gov/. It is important to note that some COVID mobile vaccine clinics are held outdoors and may be canceled in rainy or stormy conditions. To learn more about pediatric vaccinations (ages 5-11), we invite you to visit the [facility] webpage. https://www.[facility].org/pages/5362-Ylngu-Cudabxxnfaf-Firmgwhtbr-Zgnxt-Ttu stions.htmlTo learn more about the COVID-19 vaccine, we invite you to visit the CDC website for a list of frequently asked questions.https://www.cdc.gov/coronavirus/2019-ncov/vaccines/faq.html [facility] Patient Portal Access Instructions: Stay connected with your healthcare team and access your personal medical information anytime with the Locqus Patient Portal. Please follow the directions below to create your Larry[facility]Qoo account: 1.Access the email account you provided upon registration to the hospital/physician office.2.Look for an invitation email from [facility].3.Open the email and access the invitation link: AcceptInvitation to LarryeriQoo.4.Fill in the required orr to create your account. To access your account, visit [employer]/Health Diagnostic LaboratoryOneCmathew. Click the blue button labeled Access Patient [...] who you will allowto register on the [facility] What's HotChart Patient Portal for access to your information. You can also access the [facility] Patient Portal on the [facility] Anywhere frida. Simply click on Patient Portal and then log into your account. If you would like to receive a full copy of your medical records, please contact the [facility] Medical Records Department by calling [phone], Monday through Monday between 8 a.m. and [...] Call your local pharmacy or go to http://Zubka.24 Media Network/1L5Mr1j to find one close to you.3.Make use of household items: Use cat litter or old coffee grounds to dispose medications if other options arenot available. Mix your drugs with these household products, seal them in an airtight container andthrow it into the garbage. Call [facility]: [phone] to be sure your drugs can be [...] and explained to me and I,CARLOS ALBERTO HOROWITZ JR understand my current condition and have read and understand these discharge instructions. I have received a written copy of the plan/instructions. If I have questions, I am aware that I should contact my d octor. Patient/Reacher Signature: Date/Time: Relationship to Patient: Witness Name/Signature: Date/Time: [facility]07-18-2025 Pastoral care Progress note Pastoral Care Note Entered On: 12/13/2024 9:35 EDT Performed On: 12/13/2024 9:33 EDT by Carlos Alberto Nesbitt Pastoral Care Type of Pastoral Visit : Follow up visit Spiritual Care Visit Initiated by : Respiratory Care Technician Spiritual Care Reason for Visit : [...] Carlos Alberto Nesbitt on 12/13/2024 09:33 AM [facility]07-17-2025 Note Date of Service 12/12/2024 Chief Complaint COPD exacerbation Subjective 54-year-old male with past medical history significant for COPD/asthma, KOFFI, tachycardia induced cardiomyopathy with recovered EF, atrial fibrillation anticoagulated with Xarelto, type 2 diabetes mellitus. Patient presented to [facility] emergency department 12/10/2024 with dyspnea and chest pain. He was given aspirin by EMS. He is homeless and has been living with a friend but does not feel safe in this situation. Of note, patient had a right bimalleolar ankle fracture and has a right ankle external fixator in place. This was done by Dr. Viveros 10/17/2024. He was due to have this [...] He will need to follow-up with Dr. Viveros to have this removed. Patient was evaluated by therapy services with recommendation for SNF. He has been accepted at [facility] and pre- CERT has been started today. [...] by NARESH MORENO on 12/12/2024 12:39 PM [facility]07-17-2025 Pastoral care Progress note Pastoral Care Note Entered On: 12/12/2024 9:52 EDT Performed On: 12/12/2024 9:48 EDT by Carlos Alberto Nesbitt Pastoral Care Type of Pastoral Visit : Initial visit Spiritual Care Visit Initiated by : Respiratory Care Technician Spiritual Care Reason for Visit : [...] wants to get back to a former samaritan; pt welcomes someone to talk with and for prayer to be given Pastoral Care Visit Length : 20 minute(s) Carlos Alberto Nesbitt - 12/12/2024 9:48 EDT Digitally Signed by Carlos Alberto Nesbitt on 12/12/2024 09:48 AM [facility]07-17-2025 Note* Exam Date Time Procedure Performing Provider Status 12/12/24 5:56 AM XR Chest 1 View MICK LEGGETT MD; Aut h (Verified) [id number] ORIGINAL EXAMINATION: ONE XRAY VIEW OF THE [...] 12/12/2024 6:38:29 AM Ordering Provider: VENITA BROTHERS [facility]07-16-2025 Note. MICRO - Microbiology PROCEDURE: Streptococcus [...] Locations *1: This test was performed at: [address], [facility]- , [facility]07-16-2025 Note. MICRO - Microbiology PROCEDURE: Legionella Urine [...] Locations *1: This test was performed at: [address], [facility] , [facility]07-16-2025 Evaluation + Plan noteExtracted from: Title:History and Physical Author:ERLIN ALANIZ APRN-CAR SHIFTER Date:12/11/24 1. COPD exacerbation Acute, new onset, [...] evaluated by cardiology earlier this morning at [facility]. Repeat troponin in the am. 5. [...] no longer feels safe in that environment. loft worker consulted for discharge planning. 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 History of Present Illness Patient is a 54-year-old male, who follows with Girma Sunny ESCOBAR with a past medical history significant for COPD, asthma, CHF with cardiomyopathy, hypertension, atrial fibrillation, type 2 diabetes, and KOFFI, presented to [facility] emergency department with the chief complaint [...] home and would like to go to [facility]. He was just admitted to [facility] with atrial fibrillation RVR and bacteremia. [...] evaluated by cardiology earlier this morning at [facility]. Repeat troponin in the am. 5. [...] no longer feels safe in that environment. loft worker consulted for discharge planning. DVT prophylaxis [...] ANGEL GARCES DO on 12/11/2024 03:06 PM [facility]07-16-2025 Note* Exam Date Time Procedure Performing Provider Status 12/11/24 2:[address] Angiography Chest w/ Contrast MICK WAGNER MD; Auth (Verified) [id number] ORIGINAL EXAMINATION: CTA OF THE CHEST 12/11/2024 [...] Sign Date: 12/11/2024 3:29:36 AM Ordering Provider: [facility]07-16-2025 Note* Exam Date Time Procedure Performing Provider Status 12/11/24 12:31 AM XR Chest 1 View MICK ELGGETT MD; [facility] (Verified) [id number] ORIGINAL EXAMINATION: ONE XRAY VIEW OF THE [...] Sign Date: 12/11/2024 1:19:48 AM Ordering Provider: [facility]07-15-2025 Note* Exam Date Time Procedure Performing Provider Status 12/10/24 11:55 PM EKG [ED AOH] - CV DELORES MURO DO; Auth (Verified) ECG Final Report Sinus rhythm Left axis deviation Abnormal R-wave progression, late transition Compared to ECG at 11/24/2024 15:28:54 Electronic Signature: JINA DELORES STONE 12/11/2024 02:07:48 [facility]07-09-2025 Hospital Discharge instructions Patient Education 12/04/2024 [...] splint gets wet, dry it with a behavioral sciences department chair on a cool setting. You may use xiai-lyw-upjtdux pain medicine to control pain, unless another [...] cast or splint develops cracks or breaks 4928-6898 [employer]. [address] [place] [address]. All rights reserved. This information is not intended as a substitute for professional medical care. Always follow yourhealthcare professional's instructions. Follow Up Care 12/04/2024 16:40:24 With:GIRMA CORREA APRN-[facility] Address: [address] [facility] [place] [address]- [phone] When:2-4 days [facility] 07-09-2025 Note Discharge Instructions Thank you for allowing [facility] to assist you with your healthcare needs. The following is importantdischarge information regarding your hospital visit. Diagnosis from Today's Visit Visit for wound check What to Do Next Instructions from Your Care Team No qualifying data available. Post Acute Orders No qualifying data available. You Need to Schedule the Following Appointments Follow Up with GIRMA CORREA When:Within 2-4 days Where:[address] [facility] [place] [address] [phone] Allergies Statins myalgia Medications Please ask your [...] splint gets wet, dry it with a behavioral sciences department chair on a cool setting. You may use xzho-xba-amsmyrr pain medicine to control pain, unless another [...] cast or splint develops cracks or breaks 4876-5310 [employer]. [address] [place] [address], [place] [address]. All rights reserved. This information is not intended as a substitute for professional medical care. Always follow yourhealthcare professional's instructions. Additional Information VACCINATE! IT SAVES LIVES! Members of the community who have not yet received the COVID-19 vaccine and would like to receive it can visit one of [facility] vaccine clinics. There are many vaccine clinic locations within the [facility]. For locations and available times, please visit www.gettheshot.coronavirus.[place].gov/. It is important to note that some COVID mobile vaccine clinics are held outdoors and may be canceled in rainy or stormy conditions. To learn more about pediatric vaccinations (ages 5-11), we invite you to visit the [facility] webpage. https://www.[facility].org/pages/9580-Zzapy-Jqziclnnfyk-Khrgzoqfeg-Kkqzx-Joi stions.htmlTo learn more about the COVID-19 vaccine, we invite you to visit the CDC website for a list of frequently asked questions. https://www.cdc.gov/coronavirus/2019-ncov/vaccines/faq.html [facility] Patient Portal Access Instructions: Stay connected with your healthcare team and access your personal medical information anytime with the [facility] Patient Portal. If you would like a full copy of your medical records please contact the [facility] Medical Records Department Monday through Monday between 8a.m. and 4:30p.m. Please follow the directions below to access the portal: 1.Access the email account you provided upon registration to the hospital.2.Look for an invitation email from [facility].3.Open the email and access the invitation link: Accept Invitation to LarryeriQoo4.Fill in the required orr to create your account. Sign into www.[employer] with your username and password that you [...] you will allow to register on the [facility] Patient Portal for access to your information. You can also access the [facility] Patient Portal on the Five9. Simply click on Health Records under HealthData and then click on the Health Diagnostic Laboratory logo. HOW TO SAFELY DISPOSE OF PRESCRIPTION [...] Call your local pharmacy or go to http://Zubka.24 Media Network/4V1Hb6i to find one close to you.3.Make use of household items: Use cat litter or old coffee grounds to dispose medications if other options arenot available. Mix your drugs with these household products, seal them in an airtight container andthrow it into the garbage. Call [facility]: [phone] to be sure your drugs can be [...] reviewed and explained to me and IWARREN JR, RAY J understand my current condition and have read and understand these discharge instructions. I have received a written copy of the plan/instructions. If I have questions, I am aware that I should contact my d angelaor. Patient/Reacher Signature: Date/Time: Relationship to Patient: Witness Name/Signature: Date/Time: [facility]07-06-2025 Note. MICRO - Microbiology PROCEDURE: Blood [...] Locations *1: This test was performed at: [facility], [address] [place] [address], [address] , [facility] [id number] Note. MICRO - Microbiology PROCEDURE: Blood Culture [...] Locations *1: This test was performed at: [address], [address] [place] [address] [id number] Note. MICRO - Microbiology PROCEDURE: Blood Culture [...] Locations *1: This test was performed at: [address], [address] [place] [address] [id number] Cardiology Progress note Date of Service 11/28/2024 [...] Date: November 25, 2024 Verified By: TRACE CLARK MD CLINICAL STATEMENT: IMPRESSION: Given differences in [...] Date: November 24, 2024 Verified By: MELISSA ONTIVEROS MD CLINICAL STATEMENT: IMPRESSION: Mild cardiomegaly, no [...] MIKEL MCDANIEL DO on 11/28/2024 11:46 AM [facility]66 Hospital Discharge instructions Patient Education 11/28/2024 15:26:42 Atrial Fibrillation, Opqg-ij-Apds Atrial Fibrillation Atrial fibrillation is a type [...] Follow these instructions at home: Medicines Take qnfj-rkl-tlhgall and prescription medicines only as told by [...] 02/21/2009 Document Revised: 07/19/2018 Document Reviewed: 07/06/2018 [employer] Patient Education 2020 [employer]. Follow Up Care 11/24/2024 07:01:00 With:NANI VIVEROS DO, Orthopedic Address: [address] [facility], [place] [address] [phone] When:12/06/2024 09:00:00 Comments:Please Dr. Viveros's office to schedule appointment for follow up to discuss and schedule possible ex-fix removal. With:GIRMA CORREA Address: [address] [place] [address] [phone] When:1-2 days Comments:Please call the office to schedule a hospital follow up appointment. [facility] 07-03-2025 Note Discharge Instructions Thank you for allowing [facility] to assist you with your healthcare needs. The following is importantdischarge information regarding your hospital visit. Your Care Team GIRMA CORREA Your Diagnosis Ankle fracture Atrial fibrillation Cardiomyopathy Depression DM2 (diabetes mellitus, type 2) GERD (gastroesophageal reflux disease) HTN (hypertension) Positive blood cultures Shortness of breath What to do next Follow Up Appointments Follow Up with GIRMA CORREA When:Within 1-2 days Where:[place] [address] [phone] Additional Information: Please call the office to schedule a hospital follow up appointment. Follow Up with NANI VIVEROS DO Orthopedic When:12/06/2024 09:00 AM EDT Where:[address] [facility], [place] [address]- [phone] Additional Information: Please Dr. Viveros's office to schedule appointment for follow up [...] a day Duration: 14 Days Pickup at [facility]/pharmacy #[id number] Changed potassium chloride (Potassium Chloride (Eqv-K-Tab) 20 [...] by mouth Daily at bedtime Pharmacy Information [facility]/pharmacy #[id number]: [address], [place] [phone] Please take this list to your next [...] Follow these instructions at home: Medicines Take ffbo-ntl-hyfkxse and prescription medicines only as told by [...] 02/21/2009 Document Revised: 07/19/2018 Document Reviewed: 07/06/2018 [employer] Patient Education 2020 [employer] Additional Information VACCINATE! IT SAVES LIVES! [...] 5-11), we invite you to visit the [facility] webpage. https://www.[facility]ronGu[facility] Telecoms.org/pages/5668-Owkvr-Rpqofcmhool-Lvhufcyooj-Pnoxn-Ece stions.htmlTo learn more about the COVID-19 vaccine, we invite you to visit the CDC website for a list of frequently asked questions.https://www.cdc.gov/coronavirus/2019-ncov/vaccines/faq.html [facility] Patient Portal Access Instructions: Stay connected with your healthcare team and access your personal medical information anytime with the Locq[facility] Patient Portal. Please follow the directions below to create your Locqus account: 1.Access the email account you provided upon registration to the hospital/physician office.2.Look for an invitation email from [facility].3.Open the email and access the invitation link: AcceptInvitation to LarryeriQoo.4.Fill in the required orr to create your account. To access your account, visit [employer]/Health Diagnostic LaboratoryOneChart. Click the blue button labeled Access Patient [...] who you will allowto register on the [facility]us Patient Portal for access to your information. You can also access the [facility] Patient Portal on the [facility] Anywhere frida. Simply click on Patient Portal and then log into your account. If you would like to receive a full copy of your medical records, please contact the [facility] Medical Records Department by calling [phone], Monday through Monday between 8 a.m. and [...] Call your local pharmacy or go to http://Zubka.24 Media Network/3K0Ob0e to find one close to you.3.Make use of household items: Use cat litter or old coffee grounds to dispose medications if other options arenot available. Mix your drugs with these household products, seal them in an airtight container andthrow it into the garbage. Call [facility]: [phone] to be sure your drugs can be [...] COPY. Signatures Patient Education Materials Atrial Fibrillation, Qmqs-ue-Sjpu Medication Leaflets My discharge plan and instructions have been reviewed and explained to me and I,CARLOS ALBERTO HOROWITZ JR understand my current condition and have read and understand these discharge instructions. I have received a written copy of the plan/instructions. If I have questions, I am aware that I should contact my d octor. Patient/Reacher Signature: Date/Time: Relationship to Patient: Witness Name/Signature: Date/Time: [facility]td[facility]zzkc[facility]-5528 Discharge summary Date of Service 11/28/2024 Discharge [...] external fixator in place. Patient presented to [facility] as a transfer from [facility] on 11/24/2024 with complaints of [...] Physician - Ordered -- 11/24/24 13:02:00 EDT, LANDON SMITH MD, Routine, A. Fib RVR Consult to Physician - Ordered -- 11/25/24 14:57:00 EDT, NANI VIVEROS DO, Routine, fixator pin care, bacteremia Imaging [...] Date: November 25, 2024 Verified By: TRACE CLARK MD CLINICAL STATEMENT: IMPRESSION: Given differences in [...] Date: November 24, 2024 Verified By: MELISSA ONTIVEROS MD CLINICAL STATEMENT: IMPRESSION: Mild cardiomegaly, no [...] When:Within 1-2 days Where:[address] [facility] [place], [place] [id number]- [phone] Additional Information: Please call the office to [...] MAXIME COLLINS DO on 11/28/2024 01:25 PM [facility] HospitalXmfwsqrj87-55-8290 Infectious disease Progress note Date of Service [...] Date: November 25, 2024 Verified By: TRACE CLARK MD CLINICAL STATEMENT: IMPRESSION: Given differences in [...] Date: November 24, 2024 Verified By: MELISSA ONTIVEROS MD CLINICAL STATEMENT: IMPRESSION: Mild cardiomegaly, no acute process. EKG No qualifying data available. Assessment/Plan MSSA bacteremia Surgical site infection of the right ankle/external fixator Type 2 diabetes Leukocytosis Patient is a 54-year-old male with history of COPD, atrial fibrillation, type 2 diabetes, recent right ankle fracture with external fixator with scheduled operative repair with orthopedics presents to the hospital from [facility] on 11/24/2024 as a transfer [...] by ORI TOMLIN on 11/28/2024 12:50 PM [facility] HospitalWfukrzvt99-34-9700 Cardiology Progress note Date of Service 11/28/2024 [...] Date: November 25, 2024 Verified By: TRACE CLARK MD CLINICAL STATEMENT: IMPRESSION: Given differences in [...] Date: November 24, 2024 Verified By: MELISSA ONTIVEROS MD CLINICAL STATEMENT: IMPRESSION: Mild cardiomegaly, no [...] MIKEL MCDANIEL DO on 11/28/2024 11:46 AM [facility] HospitalTxbkjfbe71-43-9104 Note* Exam Date Time Procedure Performing Provider Status 11/28/24 11:04 AM Transesophageal Echo cardiogram - CV FREDDY HARTLEY MD; Auth (Verified) [facility] HospitalDcoqhfsg10-07-6154 Anesthesiology Consult note Patient: CARLOS ALBERTO HOROWITZ JR Age: 54 years Sex: Male : [...] list: Medical Asthma exacerbation / SNOMED CT 8950531998 / Confirmed COPD exacerbation / SNOMED CT 1198929350 / Confirmed Atopic dermatitis / SNOMED CT 31711781 / Confirmed Atypical chest pain / SNOMED CT 992687295 / Confirmed Morbid obesity with BMI of 40.0-44.9, adult / SNOMED CT 9411589917 / Confirmed Bronchitis / SNOMED CT 01163289 / Confirmed Cardiomyopathy / SNOMED CT 422529876 / Confirmed CHF with cardiomyopathy / SNOMED CT 73156219 / Confirmed Cough / SNOMED CT 95140720 / Confirmed Dental abscess / SNOMED CT 217751716 / Confirmed Depression / SNOMED CT 42502888 / Confirmed Dyspnea / SNOMED CT 405119166 / Confirmed Generalized anxiety disorder / SNOMED CT 08951434 / Confirmed Hypertension associated with type 2 diabetes mellitus / SNOMED CT 8833312707 / Confirmed Insomnia / SNOMED CT 759258177 / Confirmed LVH (left ventricular hypertrophy) / SNOMED CT 51479422 / Confirmed Moderate asthma / SNOMED CT 6064368075 / Confirmed Near syncope / SNOMED CT 6892486139 / Confirmed Chewing tobacco nicotine dependence / SNOMED CT 72201037 / Confirmed KOFFI (obstructive sleep apnea) / SNOMED CT 487619656 / Confirmed Right knee pain / SNOMED CT 0326964997 / Confirmed Paroxysmal atrial fibrillation / SNOMED CT 908517580 / Confirmed Screening for ischemic heart disease / SNOMED CT 166798201 / Confirmed Screening for colon cancer / SNOMED CT 505304104 / Confirmed Statin intolerance / SNOMED CT 9889872623 / Confirmed Tachyarrhythmia / SNOMED CT 66745950 / Confirmed Type 2 diabetes mellitus with hemoglobin A1c goal of less than 7.0% / SNOMED CT 566061376 / Confirmed Type 2 diabetes mellitus with hyperlipidemia / SNOMED CT 651644757 / Confirmed, Active Problems (32) Asthma exacerbation [...] Histories Past Medical History: Resolved Morbid obesity (046106839): Resolved. Diabetes mellitus (531006017): Resolved. Hypertension (0456118608): Resolved. BMI 45.0-49.9, adult (7539405567): Resolved. Anxiety (73731428): Resolved. Prediabetes (5647174373): Resolved. Obstructive sleep apnea (013611118): Resolved. Right flank pain (615278398): Resolved. Hyperlipidemia (83560658): Resolved. Mass of arm (189342490): Resolved. Family History: Cancer Father Heart disease Mother Grandparent Stroke Father Procedure history: Excision (199789996) on 03/25/2024 at 53 Years. 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 Cardioversion (413941137) on 12/23/2022 at 52 Years. Echocardiogram (8109567224) on 11/11/2022 at 52 Years. Comments: 03/20/2023 [...] atrial pressure is 15 mm Hg Elbow (4001341944). Comments: 07/11/2022 8:26 CRISTINO Sinha, SHAHEEN Hansen [...] 24 hrs) Last Charted Temp Oral36.6 DegC (MOE 03 06:51) Heart Rate Qewnhd56 bpm (NOV 28 09:06) CYD563 mmHg (NOV 28 06:51) DBP63 mmHg (NOV [...] range of motion. Integumentary: Intact, Warm, Dry, Wilkinson. Neurologic: Alert, Oriented. Review / Management Results [...] 26)9.1(NOV 25)9.2(NOV 24) . Assessment and Plan [place] [employer] Anesthesiologists (ASA) physical status classification: [...] ROJELIO NORIEGA DO on 11/28/2024 09:55 AM [facility] HospitalVhorsnlg20-75-7434 Note. MICRO - Microbiology PROCEDURE: Blood Culture [...] Locations *1: This test was performed at: [facility], [address] [place] [address], [address] , [facility] [id number] Note Date of Service 11/27/2024 Chief Complaint Palpitations Subjective 54-year-old male with a past medical history of COPD, tobacco abuse, A-fib, type 2 diabetes, recentankle fracture with external fixator in place. Presented to [facility] as a transfer from [facility] on 11/24/2024 with complaints of [...] by MELISSA ORTEGA on 11/27/2024 12:32 PM [facility] HospitalMdikkufh20-75-9572 Infectious disease Progress note Date of Service [...] Date: November 25, 2024 Verified By: TRACE CLARK MD CLINICAL STATEMENT: IMPRESSION: Given differences in [...] Date: November 24, 2024 Verified By: MELISSA ONTIVEROS MD CLINICAL STATEMENT: IMPRESSION: Mild cardiomegaly, no acute process. EKG No qualifying data available. Assessment/Plan MSSA bacteremia Surgical site infection of the right ankle/external fixator Type 2 diabetes Leukocytosis Patient is a 54-year-old male with history of COPD, atrial fibrillation, type 2 diabetes, recent right ankle fracture with external fixator with scheduled operative repair with [facility] presents to the hospital from [facility] on 11/24/2024 as a transfer [...] by ORI TOMLIN on 11/27/2024 02:19 PM [facility] HospitalZzycnkei18-99-5081 Note. MICRO - Microbiology PROCEDURE: Blood Culture (bacterial) [O1 *1] SOURCE: Blood BODY SITE: COLLECTED DATE/TIME: 11/24/2024 05:08 EDT RECEIVED DATE/TIME: 11/24/2024 12:36 EDT START DATE/TIME: 11/24/2024 12:37 EDT FREE TEXT SOURCE: FINAL REPORTS Final Report [] Verified Date/Time/Personnel: 11/27/2024 09:17 EDT Staphylococcus aureus Isolated from aerobe and anaerobe bottles. Refer to previous culture for susceptibility. [id number] PRELIMINARY REPORTS Preliminary Report [] Verified Date/Time/Personnel: [...] Locations *1: This test was performed at: [facility], [address] [place] [address], [facility] , [facility]07-02-2025 Note. MICRO - Microbiology PROCEDURE: Blood Culture [...] Locations *1: This test was performed at: [facility], [address] [place] [address], [address] , [facility]07-01-2025 Orthopaedic surgery Consult note Date of Service 11/25/2024 Reason for Consultation Pin site care History of Present Illness Chucky is a 54-year-old male who is admitted to [facility] for A-fib with RVR. Patient had recent [...] obturator, femoral, LCN, DPN, SPN, sural, saphenous, M/[employer] - Calf soft and non-tender Left Lower Extremity - No tenderness palpation about left ankle. Skin intact. - Motor: Hip flexion/extension, quadriceps, hamstrings, gastruc/soleus, EHL/FHL intact. - Foot warm and perfused. BCR - Sensation grossly intact L2-S2: obturator, femoral, LCN, DPN, SPN, sural, saphenous, M/[employer] - Calf soft and non-tender Lab Results [...] daily pin site care -Follow-up with Dr. Viveros as outpatient -Discussed with attending Problem List/Past [...] SUZE MISHRA DO on 11/26/2024 07:11 AM [facility] HospitalQehqzlrq28-15-2803 Cardiology Progress note Date of Service 11/26/2024 [...] CHANDRAKANT SUAREZ DO on 11/26/2024 03:37 PM [facility] HospitalOvtmhaew87-54-1752 Cardiology Progress note Date of Service 11/26/2024 [...] CHANDRAKANT SUAREZ DO on 11/26/2024 03:37 PM [facility] HospitalEzlifbfq83-43-4677 Note Date of Service 11/26/2024 Chief Complaint Weakness Subjective 54-year-old male with a past medical history of COPD, tobacco abuse, A-fib, type 2 diabetes, recentankle fracture with external fixator in place. Presented to [facility] as a transfer from [facility] on 11/24/2024 with complaints of [...] by MELISSA ORTEGA on 11/26/2024 12:18 PM [facility] HospitalXovhbgjp86-29-4448 Infectious disease Progress note Date of Service [...] Date: November 25, 2024 Verified By: TRACE CLARK MD CLINICAL STATEMENT: IMPRESSION: Given differences in [...] Date: November 24, 2024 Verified By: MELISSA ONTIVEROS MD CLINICAL STATEMENT: IMPRESSION: Mild cardiomegaly, no acute process. EKG No qualifying data available. Assessment/Plan MSSA bacteremia Surgical site infection of the right ankle/external fixator Type 2 diabetes Leukocytosis Patient is a 54-year-old male with history of COPD, atrial fibrillation, type 2 diabetes, recent right ankle fracture with external fixator with scheduled operative repair tomorrow at outside facility presents from [facility] on 11/24/2024 is transferred for [...] by ORI TOMLIN on 11/26/2024 02:31 PM [facility] HospitalCkggyiki20-41-2291 Infectious disease Consult note Date of Service 11/25/2024 Reason for Consultation Staph aureus bacteremia Referring Physician Dr. Juarez History of Present Illness Patient is a 54-year-old male with past medical history of COPD, tobacco abuse, atrial fibrillation, type 2 diabetes, recent right ankle fracture with external fixator with scheduled operative repairtomorrow at outside facility presents from [facility] on 11/24/2024 as a transfer [...] Date: November 24, 2024 Verified By: MELISSA ONTIVEROS MD CLINICAL STATEMENT: IMPRESSION: Mild cardiomegaly, no [...] repair tomorrow at outside facility presents from [facility] on 11/24/2024 as a transfer [...] by ORI TOMLIN on 11/25/2024 04:42 PM [facility] HospitalKbipwmyd91-59-9046 Note* Exam Date Time Procedure Performing Provider Status 11/25/24 6:03 PM XR Ankle Minimum 3 Views Left KAILEY COLEY MD; Auth (Verified) [id number] ORIGINAL EXAMINATION: THREE XRAY VIEWS OF THE [...] resident's findings and interpretation. Interpreted by: Beau oCley Preliminary Report By: Jordon Levin Electronically signed By Beau Coley Dictated Date: 11/25/2024 7:42:53 PM Prelim Date: 11/25/2024 7:45:19 PM Sign Date: 11/25/2024 7:46:46 PM Ordering Provider: SUZE MISHRA Interpreted by: Beau Coley Preliminary Report By: Jordon Levin Electronically signed By Beau Coley Dictated Date: 11/25/2024 7:42:53 PM Prelim Date: 11/25/2024 7:45:19 PM Sign Date: 11/25/2024 7:46:46 PM Ordering Provider: SUZE MISHRA [facility] HospitalBwljwbbw58-22-0111 Note* Exam Date Time Procedure Performing Provider Status 11/25/24 6:03 PM XR Tibia/Fibula 2 Views Right KAILEY COLEY MD; Auth (Verified) [id number] ORIGINAL EXAMINATION: TWO XRAY VIEWS OF THE [...] 11/25/2024 7:42:39 PM Ordering Provider: ORI TOMLIN [facility] HospitalHtwijxca43-30-8370 Note* Exam Date Time Procedure Performing Provider Status 11/25/24 6:01 PM XR Ankle Minimum 3 Views Right TRACE ROUSE MD; Auth (Verified) [id number] ORIGINAL EXAMINATION: THREE XRAY VIEWS OF THE [...] structures from prior exam. Interpreted by: Trace Clark Preliminary Report By: Trace Clark Electronically signed By Trace Clark Dictated Date: 11/25/2024 7:35:44 PM Prelim Date: 11/25/2024 7:39:01 PM Sign Date: 11/25/2024 7:39:01 PM Ordering Provider: SUZE MISHRA Interpreted by: Trace Clark Preliminary Report By: Trace Clark Electronically signed By Trace Clark Dictated Date: 11/25/2024 7:35:44 PM Prelim Date: 11/25/2024 7:39:01 PM Sign Date: 11/25/2024 7:39:01 PM Ordering Provider: SUZE MISHRA [facility] HospitalNkgosbnu78-85-7614 Orthopaedic surgery Consult note Date of Service 11/25/2024 Reason for Consultation Pin site care History of Present Illness Chucky is a 54-year-old male who is admitted to [facility] for A-fib with RVR. Patient had recent [...] obturator, femoral, LCN, DPN, SPN, sural, saphenous, M/[employer] - Calf soft and non-tender Left Lower Extremity - No tenderness palpation about left ankle. Skin intact. - Motor: Hip flexion/extension, quadriceps, hamstrings, gastruc/soleus, EHL/FHL intact. - Foot warm and perfused. BCR - Sensation grossly intact L2-S2: obturator, femoral, LCN, DPN, SPN, sural, saphenous, M/[employer] - Calf soft and non-tender Lab Results [...] daily pin site care -Follow-up with Dr. Viveros as outpatient -Discussed with attending Problem List/Past [...] SUZE MISHRA DO on 11/26/2024 07:11 AM [facility] HospitalHbvbehgg08-90-2094 Cardiology Progress note Date of Service 11/25/2024 [...] CHANDRAKANT SUAREZ DO on 11/25/2024 02:06 PM [facility] HospitalZmkbprwn02-89-4084 Note Date of Service 11/25/2024 Chief Complaint Right lower extremity pain Subjective 54-year-old male with a past medical history of COPD, tobacco abuse, A-fib, type 2 diabetes, recentankle fracture with external fixator in place. Presented to [facility] as a transfer from [facility] on 11/24/2024 with complaints of [...] by MELISSA ORTEGA on 11/25/2024 01:00 PM [facility] HospitalLwntnsat53-09-1915 Infectious disease Consult note Date of Service 11/25/2024 Reason for Consultation Staph aureus bacteremia Referring Physician Dr. Juarez History of Present Illness Patient is a 54-year-old male with past medical history of COPD, tobacco abuse, atrial fibrillation, type 2 diabetes, recent right ankle fracture with external fixator with scheduled operative repairtomorrow at outside facility presents from [facility] on 11/24/2024 as a transfer [...] Date: November 24, 2024 Verified By: MELISSA ONTIVEROS MD CLINICAL STATEMENT: IMPRESSION: Mild cardiomegaly, no acute process. EKG EC11/24/24: SINUS RHYTHM LAD, CONSIDER LEFT ANTERIOR FASCICULAR BLOCK LOW VOLTAGE, PRECORDIAL LEADS CONSIDER ANTERIOR INFARCT Electronic Signature: OJRDON ARCOS MD 11/25/2024 09:46:09 Assessment/Plan MSSA bacteremia Surgical wound infection of the right ankle/external fixator Type 2 diabetes Leukocytosis Patient is a 54-year-old male with history of COPD, atrial fibrillation, type 2 diabetes, recent right ankle fracture with external fixator with scheduled operative repair tomorrow at outside facility presents from [facility] on 11/24/2024 as a transfer [...] by ORI TOMLIN on 11/25/2024 04:42 PM [facility] HospitalQozeujxm11-72-7519 Cardiology Progress note Date of Service 11/25/2024 [...] CHANDRAKANT SUAREZ DO on 11/25/2024 02:06 PM [facility] HospitalKjbaxwtx00-16-4862 Note* Exam Date Time Procedure Performing Provider Status 11/24/24 3:28 PM EKG (ED) - CV JORDON ARCOS MD; Auth (Verified) ECG Final Report SINUS RHYTHM LAD, CONSIDER LEFT ANTERIOR FASCICULAR BLOCK LOW VOLTAGE, PRECORDIAL LEADS CONSIDER ANTERIOR INFARCT Electronic Signature: JORDON ARCOS MD 11/25/2024 09:46:09 [facility] HospitalSmdsubyu51-35-3094 Cardiology Consult note Reason for Consultation Atrial [...] for fatigue, negative for chills, negative for weightchanges HEENT: Negative for reported sleep apnea, negative [...] 0 unknown unit (08/14/20) Digitally Signed by LANDON SMITH MD on 11/24/2024 03:05 PM [facility] HospitalOalibvno06-10-7114 Note* Exam Date Time Procedure Performing Provider Status 11/24/24 2:00 PM XR Chest 1 View MELISSA ONTIVEROS MD; Aut h (Verified) [id number] ORIGINAL EXAMINATION: ONE XRAY VIEW OF THE CHEST 11/24/2024 2:01 pm COMPARISON: October 02, 2024 HISTORY: ORDERING SYSTEM PROVIDED HISTORY: Reason for Exam: SOB FINDINGS: Mild cardiomegaly is present without vascular congestion. No infiltrate or pleural fluid is visible. No acute osseous finding. IMPRESSION: Mild cardiomegaly, no acute process. Interpreted by: Melissa Ontiveros MD Preliminary Report By: Melissa Ontiveros MD Electronically signed By Melissa Ontiveros MD Dictated Date: 11/24/2024 2:02:59 PM Prelim Date: 11/24/2024 2:03:25 PM Sign Date: 11/24/2024 2:03:25 PM Ordering Provider: KARLENE BARCENAS Interpreted by: Melissa Ontiveros MD Preliminary Report By: Melissa Ontiveros MD Electronically signed By Melissa Ontiveros MD Dictated Date: 11/24/2024 2:02:59 PM Prelim Date: 11/24/2024 2:03:25 PM Sign Date: 11/24/2024 2:03:25 PM Ordering Provider: KARLENE BARCENAS [facility] HospitalSlttkhuk86-27-4460 Evaluation + Plan noteExtracted from: Title:History and [...] Metabolic Panel 08/27/24 * N-Terminal proBNP 08/27/24 [facility] 06-29-2025 History and physical note Date of Service November 24, 2024 Chief Complaint Palpitations, shortness of breath History of Present Illness This is a 54-year-old male with a past medical history consistent with COPD, tobacco abuse, atrial fibrillation, T2DM, recent ankle fracture with scheduled operative repair tomorrow at an outside facility right presents from [facility] as a transfer for palpitations in [...] Patient was given Cardizem bolus in the [facility] ED, no further therapy given due to BP drop. On exam, patient states that his work of breathing is improved. Was placed on 2 L nasal cannula in setting of A-fib with RVR. Denies chest pain, palpitations at this time. Had report of visual disturbance, hallucinations. States this happened once while in [place]. Denies any other new or acute complaints. [...] KARLENE BARCENAS DO on 11/24/2024 01:02 PM [facility] HospitalTxytkyki80-88-6374 Note* Exam Date Time Procedure Performing Provider Status 11/24/24 5:[address] Angiography Chest w/ Contrast DARNELL MOLINA MD; Auth (Verified) [id number] ORIGINAL EXAMINATION: CTA OF THE CHEST 11/24/2024 [...] 11/24/2024 6:01:11 AM Ordering Provider: CIRILO PATEL [facility]06-29-2025 Note* Exam Date Time Procedure Performing Provider Status 11/24/24 5:[address] Head or Brain w/o Contrast DARNELL MOLINA MD; Auth (Verified) [id number] ORIGINAL EXAMINATION: CT OF THE HEAD WITHOUT [...] 11/24/2024 5:55:14 AM Ordering Provider: CIRILO PATEL [facility]06-29-2025 Note* Exam Date Time Procedure Performing Provider Status 11/24/24 4:05 AM EKG [ED AOH] - CV CIRILO PATEL DO ; Auth (Verified) ECG Final Report Atrial fibrillation Markedly posterior QRS axis Anteroseptal infarct, old Minimal ST depression, lateral leads Baseline wander in lead(s) II,aVR Compared to ECG at 10/16/2024 22:24:26 ABNORMAL ECG Electronic Signature: CIRILO PATEL DO 11/24/2024 04:10:26 [facility]05-28-2025 Hospital Discharge instructions Patient Education 10/23/2024 [...] your health care provider approves. 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 Do not slide your [...] 05/15/2006 Document Revised: 04/10/2019 Document Reviewed: 04/10/2019 [employer] Patient Education 2020 [employer]. 10/23/2024 17:07:24 How to Care for an [...] with a waterproof covering. General instructions Take pwxw-qsp-epsbysd and prescription medicines only as told by [...] 01/25/2012 Document Revised: 07/12/2019 Document Reviewed: 07/15/2019 [employer] Patient Education 2020 [employer]. Follow Up Care 10/16/2024 16:12:44 With:[facility], [facility], Address:Unknown When:1-2 days With:GIRMA CORREA Address: [address] [place] [address] [phone] Business (1) When:1-2 days With:NANI VIVEROS DO, Orthopedic Address: [address] [facility], [place] [address] [phone] When:3-7 days Comments:Please call office SARA to confirm/verify follow up appointment. [facility] 05-28-2025 Note Discharge Instructions Thank you for allowing [facility] to assist you with your healthcare needs. The following is importantdischarge information regarding your hospital visit. Your Care Team GIRMA CORREA PSYCHIATRIC CLINICAL NURSE SPECIALIST-CAR SHIFTER Your Diagnosis Closed displaced bimalleolar fracture of right ankle Post-op pain Shortness of breath What to do next Scheduled Follow-Up Appointments Appointment Type When With Where Contact Information StatusCV Hospital Follow Up 11/08/2024 02:30 PM EDT EDY WEBER [facility] CVC Confirmed PC OV 11/12/2024 03:30 PM EDT GIRMA CORREA APRN-CAR SHIFTER [facility] [place] Confirmed Follow Up Appointments Follow Up with [facility], skilled, When:Within 1-2 days Follow Up with GIRMA CORREA When:Within 1-2 days Where:[address] [place] [place] [address] [phone] Business (1) Follow Up with NANI VIVEROS DO, Orthopedic When:Within 3-7 days Where:[address] [facility], [place] [address] [phone] Additional Information: Please call office SARA to [...] - Ordered -- 10/23/24 15:20:00 EDT, NANI VIVEROS DO Transfer of Care Prognosis - Ordered [...] Post-op pain Duration: 7 Days Pickup at [facility]/pharmacy #[id number] Unchanged albuterol (albuterol 2.5 mg/ 3 mL [...] by mouth Daily at bedtime Pharmacy Information [facility]/pharmacy #[id number]: [address], [place] [phone] Please take this list to your next [...] may report side effects to FDA at [phone]. What other drugs will affect acetaminophen and [...] affect acetaminophen and oxycodone, including prescription and cyll-lbq-xvcnaxa medicines, vitamins, and herbal products. Not all [...] to ensure that the information provided by [employer] ('[employer]') is accurate, up-to-date, and complete, but no guarantee is made to that effect. Drug information contained herein may be time sensitive. [employer] information has been compiled for use by healthcare practitioners and consumers in the [place] and therefore [employer] does not warrant that uses outside of the [place] are appropriate, unless specifically indicated otherwise. [employer] drug information does not endorse drugs, diagnose patients or recommend therapy. [employer] drug information isan informational resource designed to [...] effective or appropriate for any given patient. [employer] does not assume any responsibility for any aspect of healthcare administered with the aid of information [employer] provides. The information contained herein is not intended to cover all possible uses, directions, precautions, warnings, drug interactions, allergic reactions, or adverse effects. If you have questions about the drugs you are taking, check with your doctor, nurse or pharmacist. Copyright 2817-5305 [employer] Version: 22.. Revision Date: 12/29/2022. Education Materials [...] health care provider approves. 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 Do not slide your [...] 05/15/2006 Document Revised: 04/10/2019 Document Reviewed: 04/10/2019 [employer] Patient Education 2020 [employer] How to Care for an External [...] with a waterproof covering. General instructions Take rtyj-vwv-oyszmpd and prescription medicines only as told by [...] 01/25/2012 Document Revised: 07/12/2019 Document Reviewed: 07/15/2019 [employer] Patient Education 2020 [employer] Additional Information VACCINATE! IT SAVES LIVES! Members of the community who have not yet received the COVID-19 vaccine and would like to receive it can visit one of [facility] vaccine clinics. There are many vaccine clinic locations within the [facility]. For locations and available times, please visit [email or web address].[email or web address]/. It is important to note that some COVID mobile vaccine clinics are held outdoors and may be canceled in rainy or stormy conditions. To learn more about pediatric vaccinations (ages 5-11), we invite you to visit the [facility] webpage. https://www.[email or web address].org/pages/3848-Neyaa-Hgjtckuecvr-Hgfajzdkon-Rybcp-Llu stions.htmlTo learn more about the COVID-19 vaccine, we invite you to visit the CDC website for a list of frequently asked questions.https://www.cdc.gov/coronavirus/2019-ncov/vaccines/faq.html [facility] Patient Portal Access Instructions: Stay connected with your healthcare team and access your personal medical information anytime with the [facility] Patient Portal. Please follow the directions below to create your LarryeriQoo account: 1.Access the email account you provided upon registration to the hospital/physician office.2.Look for an invitation email from [facility].3.Open the email and access the invitation link: AcceptInvitation to LarryeriQoo.4.Fill in the required orr to create your account. To access your account, visit larryGymtrack/[facility]. Click the blue button labeled Access Patient Portal and then log in with the username and password that you created in the steps above. You will be able to view your test results, lab results, a summary of your visits, upcoming appointments and more. There is also a convenient messaging option where you can send secure messages to your p Weftvider. In addition, you will have the ability to download any documents or summaries to your computer and/or send the information securely to a physician. Remember that your healthcare information is confidential, so carefully consider who you will allowto register on the [facility] Patient Portal for access to your information. You can also access the [facility] Patient Portal on the [facility] Anywhere frida. Simply click on Patient Portal and then log into your account. If you would like to receive a full copy of your medical records, please contact the [facility] Medical Records Department by calling [phone], Monday through Monday between 8 a.m. and [...] Call your local pharmacy or go to http://bit.[employer]/9G4Kp5e to find one close to you.3.Make use of household items: Use cat litter or old coffee grounds to dispose medications if other options arenot available. Mix your drugs with these household products, seal them in an airtight container andthrow it into the garbage. Call [facility]: [phone] to be sure your drugs can be [...] aware that I should contact my doctor. Patient/Reacher Signature: Date/Time: Relationship to Patient: Witness Name/Signature: Date/Time: Larry [id number] Note Discharge Instructions Thank you for allowing [...] EDY WE[facility] Confirmed PC OV 11/12/2024 03:30 PM EDT GIRMA CORREA [facility] Confirmed Follow Up Appointments Follow Up with [facility], [facility], When:Within 1-2 days Follow Up with GIRMA CORREA When:Within 1-2 days Where:[address] [place] [address]- [phone] Business (1) Follow Up with NANI VIVEROS DO, Orthopedic When:Within 3-7 days Where:[address] [facility], [place] [address]- [phone] Additional Information: Please call office SARA to [...] - Ordered -- 10/23/24 15:20:00 EDT, NANI VIVEROS DO Transfer of Care Prognosis - Ordered [...] Post-op pain Duration: 7 Days Pickup at [facility]/pharmacy #[id number] Unchanged albuterol (albuterol 2.5 mg/ 3 mL [...] by mouth Daily at bedtime Pharmacy Information [facility]/pharmacy #[id number]: [address], [place] [phone] Please take this list to your next [...] to receive it can visit one of [facility] vaccine clinics. There are many vaccine clinic locations within the [facility]. For locations and available times, please visit [email or web address]/. It is important to note that some COVID mobile vaccine clinics are held outdoors and may be canceled in rainy or stormy conditions. To learn more about pediatric vaccinations (ages 5-11), we invite you to visit the [facility] webpage. https://www.[facility].org/pages/2652-Lkpvd-Kbmtgsmhned-Bkqrphiomy-Tieua-Xmk stions.htmlTo learn more about the COVID-19 vaccine, we invite you to visit the CDC website for a list of frequently asked questions.https://www.cdc.gov/coronavirus/2019-ncov/vaccines/faq.html [facility] Patient Portal Access Instructions: Stay connected with your healthcare team and access your personal medical information anytime with the [facility] Patient Portal. Please follow the directions below to create your [employer]us account: 1.Access the email account you provided upon registration to the hospital/physician office.2.Look for an invitation email from [facility].3.Open the email and access the invitation link: AcceptInvitation to LarryeriQoo.4.Fill in the required orr to create your account. To access your account, visit [employer]. Click the blue button labeled Access Patient Portal and then log in with the username and password that you created in the steps above. You will be able to view your test results, lab results, a summary of your visits, upcoming appointments and more. There is also a convenient messaging option where you can send secure messages to your brody. In addition, you will have the ability to download any documents or summaries to your computer and/or send the information securely to a physician. Remember that your healthcare information is confidential, so carefully consider who you will allowto register on the [facility] for access to your information. You can also access the [facility] Patient Portal on the [facility] frida. Simply click on Patient Portal and then log into your account. If you would like to receive a full copy of your medical records, please contact the [facility] Medical Records Department by calling [phone], Monday through Monday between 8 a.m. and [...] Call your local pharmacy or go to [email or web address]/8Z6Jm5y to find one close to you.3.Make use of household items: Use cat litter or old coffee grounds to dispose medications if other options arenot available. Mix your drugs with these household products, seal them in an airtight container andthrow it into the garbage. Call [facility]: [phone] to be sure your drugs can be [...] and explained to me and I,CARLOS ALBERTO HOROWITZ understand my current condition and have read and understand these discharge instructions. I have received awritten copy of the plan/instructions. If I have questions, I am aware that I should contact my doctor. 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 Walking boot in place when patient is ambulating - Motor: Hip flexion/extension, quadriceps, hamstrings, gastruc/soleus, EHL/FHL intact. - DP and PT pulse 2+. Foot warm and perfused. 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 Viveros within 1 week -Social work for discharge planning, pending SNF placement - precert pending Patient stable for discharge from orthopedic standpoint. Still awaiting placement per case management Digitally Signed by SUZE MISHRA DO on 10/23/2024 07:03 AM [facility] [id number] Orthopaedic surgery Progress note Date of Service [...] obturator, femoral, LCN, DPN, SPN, sural, saphenous, M/DIRECTOR MARKETING [employer] - Calf soft and non-tender Left Lower Extremity - No pain to left lower extremity. Walking boot in place when patient is ambulating - Motor: Hip flexion/extension, quadriceps, hamstrings, gastruc/soleus, EHL/FHL intact. - DP and PT pulse 2+. Foot warm and perfused. 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 Viveros within 1 week -Social work for discharge planning, pending SNF placement - precert pending Patient stable for discharge from orthopedic standpoint. Still awaiting placement per case management Digitally Signed by SUZE MISHRA DO on 10/23/2024 07:03 AM [facility] HospitalMwxzhddb51-05-1338 Orthopaedic surgery Progress note Date of Service [...] obturator, femoral, LCN, DPN, SPN, sural, saphenous, M/[employer] MARK[employer] - Calf soft and non-tender Left Lower Extremity - No pain to left lower extremity. Walking boot in place when patient is ambulating - Motor: Hip flexion/extension, quadriceps, hamstrings, gastruc/soleus, EHL/FHL intact. - DP and PT pulse 2+. Foot warm and perfused. 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 Viveros within 1 week -Social work for discharge planning, pending SNF placement Patient stable for discharge from orthopedic standpoint. Still awaiting placement per case management Digitally Signed by SUZE MISHRA DO on 10/22/2024 05:51 AM [facility] [id number] Orthopaedic surgery Progress note Date of Service [...] obturator, femoral, LCN, DPN, SPN, sural, saphenous, M/[employer] - Calf soft and non-tender Left Lower Extremity - No pain to left lower extremity. Walking boot in place when patient is ambulating - Motor: Hip flexion/extension, quadriceps, hamstrings, gastruc/soleus, EHL/FHL intact. - DP and PT pulse 2+. Foot warm and perfused. 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 Viveros within 1 week -Social work for discharge planning, pending SNF placement Patient stable for discharge from orthopedic standpoint. Still awaiting placement per case management Digitally Signed by SUZE MISHRA DO on 10/22/2024 05:51 AM [facility] [id number] Orthopaedic surgery Progress note Date of Service [...] - Follow up as outpatient with Dr. Viveros within 1 week -Social work for discharge planning Patient stable for discharge from orthopedic standpoint. Still awaiting placement per case management Digitally Signed by SANDRA GARCIA DO on 10/21/2024 10:00 AM [facility] HospitalWpvpcfet34-64-9011 Orthopaedic surgery Progress note Date of Service [...] - Follow up as outpatient with Dr. Viveros within 1 week -Social work for discharge planning Patient stable for discharge from orthopedic standpoint. Still awaiting placement per case management Digitally Signed by SANDRA GARCIA DO on 10/21/2024 10:00 AM [facility] HospitalMtknkdmy13-82-7995 Pastoral care Progress note Pastoral Care Note [...] by Sanjay Lucas on 10/18/2024 04:50 PM [facility] [id number] Note PIN care completed by bedside RN. Ortho approved protocol orders for care daily. Digitally Signed by SHAHEEN Lou on 10/18/2024 01:37 PM [facility] HospitalMwdgteop00-92-7571 Note Date of Service 10/18/2024 Chief Complaint [...] by GROVER HOFFMAN on 10/18/2024 01:11 PM [facility] HospitalJvevddea54-52-0668 Note* Exam Date Time Procedure Performing Provider Status 10/17/24 1:14 PM XR Fluoro 1-2 Hrs Tech Time KAILEY WAHL DO; Auth (Verified) [id number] ORIGINAL EXAMINATION: TAD MD - > 1 HR TECHNIQUE: Total fluoro time is 43.2 seconds. Total exposure is 2.0531 mGy. COMPARISON: CT ankle 10/17/2024, x-ray ankle 10/16/2024. HISTORY: ORDERING SYSTEM PROVIDED HISTORY: Reason for Exam: RIGHT ANKLE FX FINDINGS: Intraoperative fluoroscopic images from external surgical fixation of a distal fibular fracture. IMPRESSION: Intraoperative fluoroscopic images. Please refer to the paper rewinder operator's report for further information. I have personally reviewed the images of this examination and agree with the resident's findings and interpretation. Interpreted by: Beau Wahl Preliminary Report By: Nadya Hudson Electronically signed By Beau Wahl Dictated Date: 10/17/2024 1:42:02 PM Prelim Date: 10/17/2024 2:15:08 PM Sign Date: 10/17/2024 2:15:08 PM Ordering Provider: NANI VIVEROS [facility] HospitalTjvmbtia24-50-0243 Note Date of Service 10/17/2024 Chief Complaint Medical management Subjective This 54-year-old white male with a past medical history of type 2 diabetes mellitus, hypertension, COPD, HFpEF, anxiety, atrial fibrillation on Xarelto and Tikosyn presented to [facility] aftermechanical fall and subsequent ankle pain. [...] by GROVER HOFFMAN on 10/17/2024 12:52 PM [facility] HospitalGxusaxei30-56-9294 Anesthesiology Consult note Patient: CARLOS ALBERTO HOROWITZ Age: 54 years Sex: Male : 1970 [...] CHANTAL WHEATLEY DO on 10/17/2024 11:13 AM [facility] HospitalXbbtmjak59-80-0612 Note* Exam Date Time Procedure Performing Provider Status 10/17/24 10:[address] Ankle w/o Contrast Right KATHY REVELES MD; Auth (Verified) [id number] ORIGINAL EXAMINATION: CT OF THE RIGHT ANKLE [...] spanning external fixator, multiplanar 10/17. transfer from [facility] for right ankle fracture with dislocation. Surgical [...] 10/17/2024 1:17:29 PM Ordering Provider: SUZE MISHRA [facility] HospitalYkwjftaj91-57-2041 History and physical note Date of Service 10/16/2024 Chief Complaint Pt here from [facility] via squad after a mechanical fall causing a fracture to his right ankle. They splinted it in their ED and sent to [facility] for surgical consult. History of Present Illness Patient is a 54-year-old male who presents to the [facility] emergency department as a transfer from [facility] for his right ankle fracture. Patient reports [...] Date: October 16, 2024 Verified By: TRACE CLARK MD CLINICAL STATEMENT: IMPRESSION: No significant change in alignment post reduction. I have personally reviewed the images of this examination and agree with conniesident's findings and interpretation. XR Ankle Minimum 3 Views Right Result Date: October 16, 2024 Verified By: TRACE CLARK MD CLINICAL STATEMENT: IMPRESSION: No significant change in alignment post reduction. I have personally reviewed the images of this examination and agree with conniesident's findings and interpretation. XR Ankle Minimum 3 Views Right Result Date: October 16, 2024 Verified By: TRACE CLARK MD CLINICAL STATEMENT: IMPRESSION: Fracture subluxation of [...] right ankle spanning external fixator with Dr. Viveros on 10/16/2024. -Patient placed in a AO splint -Hold any chemical DVT prophylaxis at this time - will order SCDs -Pain control -Percocet/morphine -Bedrest, NWB right lower extremity -N.p.o. at midnight - Ancef on-call to the OR -We will order type and screen preoperatively. Patient's current hemoglobin 14.3, platelets 152 -Awaiting medical optimization -Plan discussed with Dr. Viveros Orders: acetaminophen(Tylenol), 650 mg= 2 tab(s), Oral, [...] Blood, q24h, for 5 day(s), Preferred Lab: [facility], Stop date 10/20/24 22:00:00 EDT Bedrest, [...] Blood, q24h, for 5 day(s), Preferred Lab: [facility], Stop date 10/20/24 22:00:00 EDT Complete Metabolic Panel(CMP), 10/16/24:21:00 EDT, URGENT (collect within 2 hrs), Blood, Once, Nurse Collect, Preferred Lab: [facility], Stop date 10/16/24 21:37:00 EDT Consult to Physician, 10/16/24 21:21:00 EDT, HOSPITALISTLARRY (For Consultation Assignment OnlyNO other Orders), Routine, medical clearance, follow medically Diet Order, 10/16/24 21:21:00 EDT, Start Meal: Next meal, Regular, Constant Order, : N/A, : N/A Electrocardiogram(EKG), 10/16/24 21:21:00 EDT, Complete by Nursing Incentive Spirometer, 10/16/24 21:21:00 EDT, a0zLT-QC Intake and Output, 10/16/24 21:21:00 EDT, q8h (2p, 10p, 6a) IV Catheter Insertion/Care(Peripheral IV Insertion/Care), 10/16/24 21:21:00 EDT, IV Care: Once, 18 gauge angiocath, if possible Pulse Oximeter - Intermittent, 10/16/24 21:21:00 EDT, AsDirected, PRN order, On admission and as indicated Type and Screen, 10/16/24 21:21:00 EDT, URGENT (collect within 2 hrs), Blood, Once, Nurse Collect, Preferred Lab: [facility], Stop date 10/16/24 21:21:00 EDT Vital [...] RIC ARELLANO DO on 10/16/2024 09:43 PM [facility] HospitalKcynixeo54-29-1364 Anesthesiology Consult note Patient: CARLOS ALBERTO HOROWITZ Age: 54 years Sex: Male : 1970 [...] scale 7-10 mupirocin 2% topical ointment: 1 friad, Nostril, each, BID Prescriptions Prescribed Nexletol 180 [...] list: Medical Asthma exacerbation / SNOMED CT 5397985378 / Confirmed COPD exacerbation / SNOMED CT 7809505769 / Confirmed Atopic dermatitis / SNOMED CT 47994867 / Confirmed Atypical chest pain / SNOMED CT 985875462 / Confirmed Morbid obesity with BMI of 40.0-44.9, adult / SNOMED CT 4860256143 / Confirmed Bronchitis / SNOMED CT 37291771 / Confirmed Cardiomyopathy / SNOMED CT 297278648 / Confirmed CHF with cardiomyopathy / SNOMED CT 75562456 / Confirmed Cough / SNOMED CT 79856847 / Confirmed Dental abscess / SNOMED CT 716838924 / Confirmed Depression / SNOMED CT 24560912 / Confirmed Dyspnea / SNOMED CT 846119400 / Confirmed Generalized anxiety disorder / SNOMED CT 88073028 / Confirmed Hypertension associated with type 2 diabetes mellitus / SNOMED CT 7279143954 / Confirmed Insomnia / SNOMED CT 607228531 / Confirmed LVH (left ventricular hypertrophy) / SNOMED CT 37586559 / Confirmed Moderate asthma / SNOMED CT 3970577859 / Confirmed Near syncope / SNOMED CT 8330377265 / Confirmed Chewing tobacco nicotine dependence / SNOMED CT 59955145 / Confirmed KOFFI (obstructive sleep apnea) / SNOMED CT 232679237 / Confirmed Right knee pain / SNOMED CT 4464207715 / Confirmed Paroxysmal atrial fibrillation / SNOMED CT 131518487 / Confirmed Screening for ischemic heart disease / SNOMED CT 700729876 / Confirmed Screening for colon cancer / SNOMED CT 558073946 / Confirmed Statin intolerance / SNOMED CT 3306203044 / Confirmed Tachyarrhythmia / SNOMED CT 48622966 / Confirmed Type 2 diabetes mellitus with hemoglobin A1c goal of less than 7.0% / SNOMED CT 361809323 / Confirmed Type 2 diabetes mellitus with hyperlipidemia / SNOMED CT 508792762 / Confirmed, Active Problems (32) Asthma exacerbation [...] Histories Past Medical History: Resolved Morbid obesity (388318256): Resolved. Diabetes mellitus (906250725): Resolved. Hypertension (5803172783): Resolved. BMI 45.0-49.9, adult (9928470856): Resolved. Anxiety (15830242): Resolved. Prediabetes (4118343985): Resolved. Obstructive sleep apnea (233076350): Resolved. Right flank pain (390337990): Resolved. Hyperlipidemia (96029090): Resolved. Mass of arm (859777453): Resolved. Family History: Cancer Father Heart disease Mother Grandparent Stroke Father Procedure history: Excision (962663162) on 03/25/2024 at 53 Years. Comments: 03/26/2024 7:50 Karol Curry LPN excision of multilobulated lipomatous mass right forearm Echocardiogram (8809541440) on 01/31/2024 at 53 Years. Cardioversion (948008614) on 12/23/2022 at 52 Years. Echocardiogram (3242205370) on 11/11/2022 at 52 Years. Comments: 03/20/2023 [...] atrial pressure is 15 mm Hg Elbow (0710620364). Comments: 07/11/2022 8:26 EST - Long, RN [...] Temp Oral36.7 DegC (OCTOBER 17:12) Heart Rate Liwtvtlmv66 bpm (OCTOBER 17 00:00) SWL298 mmHg (OCTOBER 17:12) DBP82 mmHg (OCTOBER 17:12) BMI44.92 (OCTOBER 17:29) Measurements from flowsheet : Measurements 10/17/2024 1:29 EDT Height 177.8 cm Height in inches 70 inch(es) Admission Weight 142 kg Weight Lbs 312.4 lb [place] Body Weight 73.00 kg Type of Scale [...] PRN medication effectiveness Partial Nail Bed Color Wilkinson Capillary Refill < 2 seconds Dorsalis Pedis Pulse, Left 2+ Normal Radial Pulse, Left 2+ Normal Radial Pulse, Right 2+ Normal Respirations Unlabored Respiratory Pattern Regular All Lobes Breath Sounds Clear Abdomen Description Non-distended, Rounded Abdomen Palpation Non-Tender Passing Flatus Yes Bowel Sounds All Quadrants Present Skin Description Wilkinson, Dry Skin Temperature Warm Skin Integrity Pressure points intact Skin Turgor Elastic All Extremity Description Wilkinson, Normal for ethnicity Temperature All Extremities Warm Mucous Membrane Color Wilkinson Mucous Membrane Description Moist Ankle Right Incision, Wound Dressing/Activity: Assessed Incision, Wound Dressing: Elastic wrap bandage Wound Associated Pain: With activity, mobilization Buttock Inferior, Inner Skin Abnormality Type: Non-pressure ulcer Skin Abnormality Color: Wilkinson, Red Incision, Wound Surrounding Tissue: Normal skin [...] #1 We May Share PHI MARILYN OSPINA [phone] Designated Person #1 Relationship Sibling Designated Person #2 We May Share PHI Designated Person #2 We May Share PHI Privacy Restrictions Requested None Height 177.8 cm Height in inches 70 inch(es) Admission Weight 142 kg Weight Lbs 312.4 lb [place] Body Weight 73.00 kg Type of Scale [...] evident Teaching Method Explanation Preferred Spoken Language Wallisian Preferred Written Language Wallisian Disease Process General Education Signs/Symptoms to report, [...] 10/16/2024 16:28 EDT Status N/A [facility] Screen 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 They splinted it in their ED and sent to [facility] for surgical consult. Place Where Injury/Illness Occurred Other: [facility] Anticoagulants Taken In Past 6 Wks. [...] Non-distended, Symmetric Abdomen Palpation Non-Tender Skin Description Wilkinson, Normal for ethnicity, Dry Skin Temperature Warm Mucous Membrane Color Wilkinson Mucous Membrane Description Moist Neurological Symptoms Patient denies Level of Consciousness Alert Eye Opening Response [place] Spontaneously Best Motor Response [place] Obeys simple commands Best Verbal Response [place] Oriented [place] Coma Score 15 CLARA Yes Left Upper [...] No Weight Loss No Preferred Spoken Language Wallisian Preferred Written Language Wallisian Tracking Group ED Tracking Group Tracking Acuity 3 ED Diabetic Patient No Mode of Transfer Ground ambulance Ambulance Service [facility] Positioning Repositions self Standard Safety ID band [...] ED Triage Adults . Assessment and Plan [place] [employer]hesi[employer] (ASA) physical status classification: [...] diabetes mellitus with hyperlipidemia Historical Anxiety Diabetes [facility] Hyperlipidemia Hypertension Mass of arm Obstructive sleep apnea Prediabetes Right flank pain . Digitally Signed by MELISSA MARIN MD on 10/17/2024 06:21 AM Digitally Signed by DELORES BRAVO on 10/17/2024 07:17 AM [id number] Note Date of Service October 16, 2024 [...] KARLENE BARCENAS DO on 10/16/2024 10:38 PM [facility] [id number] Note* Exam Date Time Procedure Performing Provider Status 10/16/24 10:24 PM Electrocardiogram - EKG - CV SA SULY YANES MD; Auth (Verified) ECG Final Report SINUS RHYTHM LEFT ANTERIOR FASCICULAR BLOCK LOW VOLTAGE, PRECORDIAL LEADS Electronic Signature: ALIZA YANES MD 10/17/2024 18:58:09 [facility] [id number] Note* Exam Date Time Procedure Performing Provider Status 10/16/24 10:07 PM XR Ankle Minimum 3 Views Left TRACE ROUSE MD; Auth (Verified) [id number] ORIGINAL EXAMINATION: THREE XRAY VIEWS OF THE [...] resident's findings and interpretation. Interpreted by: Trace Clark Preliminary Report By: Jordon Levin Electronically signed By Trace Clark Dictated Date: 10/16/2024 10:21:21 PM Prelim Date: 10/16/2024 10:25:23 PM Sign Date: 10/16/2024 10:39:42 PM Ordering Provider: RIC ARELLANO [facility] [id number] History and physical note Date of Service 10/16/2024 Chief Complaint Pt here from [facility] via squad after a mechanical fall causing a fracture to his right ankle. They splinted it in their ED and sent to [facility] for surgical consult. History of Present Illness Patient is a 54-year-old male who presents to the [facility] emergency department as a transfer from [facility] for his right ankle fracture. Patient reports [...] Date: October 16, 2024 Verified By: TRACE CLARK MD CLINICAL STATEMENT: IMPRESSION: No significant change in alignment post reduction. I have personally reviewed the images of this examination and agree with theresident's findings and interpretation. XR Ankle Minimum 3 Views Right Result Date: October 16, 2024 Verified By: TRACE CLARK MD CLINICAL STATEMENT: IMPRESSION: No significant change in alignment post reduction. I have personally reviewed the images of this examination and agree with theresident's findings and interpretation. XR Ankle Minimum 3 Views Right Result Date: October 16, 2024 Verified By: TRACE CLARK MD CLINICAL STATEMENT: IMPRESSION: Fracture subluxation of [...] right ankle spanning external fixator with Dr. Viveros on 10/16/2024. -Patient placed in a AO splint -Hold any chemical DVT prophylaxis at this time - will order SCDs -Pain control -Percocet/morphine -Bedrest, NWB right lower extremity -N.p.o. at midnight - Ancef on-call to the OR -We will order type and screen preoperatively. Patient's current hemoglobin 14.3, platelets 152 -Awaiting medical optimization -Plan discussed with Dr. Viveros Orders: acetaminophen(Tylenol), 650 mg= 2 tab(s), Oral, [...] Blood, q24h, for 5 day(s), Preferred Lab: [facility], Stop date 10/20/24 22:00:00 EDT Bedrest, [...] Blood, q24h, for 5 day(s), Preferred Lab: [facility], Stop date 10/20/24 22:00:00 EDT Complete Metabolic Panel(CMP), 10/16/24 21:21:00 EDT, URGENT (collect within 2 hrs), Blood, Once, Nurse Collect, Preferred Lab: [facility], Stop date 10/16/24 21:37:00 EDT Consult to Physician, 10/16/24 21:21:00 EDT, HOSPITALISTLARRY (For Consultation Assignment OnlyNO other Orders), Routine, medical clearance, follow medically Diet Order, 10/16/24 21:21:00 EDT, Start Meal: Next meal, Regular, Constant Order, : N/A, : N/A Electrocardiogram(EKG), 10/16/24 21:21:00 EDT, Complete by Nursing Incentive Spirometer, 10/16/24 21:21:00 EDT, [id number] Intake and Output, 10/16/24 21:21:00 EDT, q8h (2p, 10p, 6a) IV Catheter Insertion/Care(Peripheral IV Insertion/Care), 10/16/24 21:21:00 EDT, IV Care: Once, 18 gauge angiocath, if possible Pulse Oximeter - Intermittent, 10/16/24 21:21:00 EDT, AsDirected, PRN order, On admission and as indicated Type and Screen, 10/16/24 21:21:00 EDT, URGENT (collect within 2 hrs), Blood, Once, Nurse Collect, Preferred Lab: [facility], Stop date 10/16/24 21:21:00 EDT Vital [...] RIC ARELLANO DO on 10/16/2024 09:43 PM [facility] [id number] Note* Exam Date Time Procedure Performing Provider Status 10/16/24 8:42 PM XR Ankle Minimum 3 Views Right TRACE ROUSE MD; Auth (Verified) [id number] ORIGINAL EXAMINATION: THREE XRAY VIEWS OF THE [...] resident's findings and interpretation. Interpreted by: Trace Clark Preliminary Report By: Jordon Levin Electronically signed By Trace Clark Dictated Date: 10/16/2024 8:55:43 PM Prelim Date: 10/16/2024 8:57:44 PM Sign Date: 10/16/2024 9:20:54 PM Ordering Provider: RIC ARELLANO [facility] [id number] Note* Exam Date Time Procedure Performing Provider Status 10/16/24 7:09 PM XR Ankle Minimum 3 Views Right TRACE ROUSE MD; Auth (Verified) [id number] ORIGINAL EXAMINATION: THREE XRAY VIEWS OF THE [...] resident's findings and interpretation. Interpreted by: Trace Clark Preliminary Report By: Keagan Huggins MD Electronically signed By Trace Clark Dictated Date: 10/16/2024 7:23:46 PM Prelim Date: 10/16/2024 7:53:07 PM Sign Date: 10/16/2024 7:53:07 PM Ordering Provider: EM GARCIA [facility] [id number] Note* Exam Date Time Procedure Performing Provider Status 10/16/24 5:43 PM XR Ankle Minimum 3 Views Right TRACE ROUSE MD; Auth (Verified) [id number] ORIGINAL EXAMINATION: THREE XRAY VIEWS OF THE [...] resident's findings and interpretation. Interpreted by: Trace Clark Preliminary Report By: Jordon Levin Electronically signed By Trace Clark Dictated Date: 10/16/2024 5:48:30 PM Prelim Date: 10/16/2024 5:53:49 PM Sign Date: 10/16/2024 6:28:12 PM [facility] Evaluation + Plan noteExtracted from: Title:Ortho [...] right ankle spanning external fixator with Dr. Viveros on 10/16/2024. -Patient placed in a AO splint -Hold any chemical DVT prophylaxis at this time - will order SCDs -Pain control -Percocet/morphine -Bedrest, NWB right lower extremity -N.p.o. at midnight - Ancef on-call to the OR -We will order type and screen preoperatively. Patient's current hemoglobin 14.3, platelets 152 -Awaiting medical optimization -Plan discussed with Dr. Viveros Orders: acetaminophen(Tylenol), 650 mg= 2 tab(s), Oral, [...] Blood, q24h, for 5 day(s), Preferred Lab: [facility], Stop date 10/20/24 22:00:00 EDT Bedrest, [...] Blood, q24h, for 5 day(s), Preferred Lab: [facility], Stop date 10/20/24 22:00:00 EDT Complete Metabolic Panel(CMP), 10/16/24 21:21:00 EDT, URGENT (collect within 2 hrs), Blood, Once, Nurse Collect, Preferred Lab: [facility], Stop date 10/16/24 21:37:00 EDT Consult to Physician, 10/16/24 21:21:00 EDT, HOSPITALISTLARRY (For Consultation Assignment Only NO other Orders), Routine, medical clearance, follow medically Diet Order, 10/16/24 21:21:00 EDT, Start Meal: Next meal, Regular, Constant Order, : N/A, : N/A Electrocardiogram(EKG), 10/16/24 21:21:00 EDT, Complete by Nursing Incentive Spirometer, 10/16/24 21:21:00 EDT, [id number] Intake and Output, 10/16/24 21:21:00 EDT, q8h (2p, 10p, 6a) IV Catheter Insertion/Care(Peripheral IV Insertion/Care), 10/16/24 21:21:00 EDT, IV Care: Once, 18 gauge angiocath, if possible Pulse Oximeter - Intermittent, 10/16/24 21:21:00 EDT, AsDirected, PRN order, On admission and as indicated Type and Screen, 10/16/24 21:21:00 EDT, URGENT (collect within 2 hrs), Blood, Once, Nurse Collect, Preferred Lab: [facility], Stop date 10/16/24 21:21:00 EDT Vital Signs, 10/16/24 21:21:00 EDT, q8h Addendum by NANI VIVEROS DO on October 17, 2024 07:11:24 EDT [...] Appointment Date:11/08/2024 02:30:00 PM Scheduled Provider:EDY WEBER Location:[facility] Appointment Type:[facility] Hospital Follow Up Appointment Date:11/12/2024 03:30:00 PM Scheduled Provider:GIRMA CORREA Location:[facility] Appointment Type: OV Future Scheduled Tests Laboratory* Basic Metabolic Panel 02/07/24 * Basic Metabolic Panel 12/10/24 * Basic Metabolic Panel 02/19/24 * Magnesium Level 02/07/24 * Complete Blood Count 08/27/24 * Complete Metabolic Panel 08/27/24 * N-Terminal proBNP 08/27/24 [facility] 05-09-2025 Hospital Discharge instructions Patient Education [...] Slowly return to your usual activities. Take ohkt-bmc-nnqmxhe and prescription medicines only as told by [...] 02/07/2002 Document Revised: 10/15/2018 Document Reviewed: 10/15/2018 [employer] Patient Education 2020 [employer]. 10/04/2024 21:03:30 Pursed Lip Breathing Pursed Lip [...] exercise. Follow these instructions at home: Take zadq-pzk-eneshke and prescription medicines only as told by [...] 02/21/2009 Document Revised: 04/27/2018 Document Reviewed: 04/06/2017 [employer] Patient Education 2020 [employer]. 10/04/2024 21:03:27 Cough, Adult Cough, Adult Coughing [...] Follow these instructions at home: Medicines Take nkxb-xua-omhkjtk and prescription medicines only as told by [...] of a condition that needs treatment. Take qwga-xhi-lcptqsy and prescription medicines only as told by [...] 11/11/2011 Document Revised: 06/03/2019 Document Reviewed: 06/03/2019 [employer] Patient Education 2020 [employer]. Follow Up Care 10/02/2024 02:08:49 With:readmission score is 13 Address:Unknown When: Unknown With:GIRMA CORREA Address: [address] [place] [phone] Business (1) When:1-2 days [facility] 05-09-2025 Note Discharge Instructions Thank you for allowing [facility] to assist you with your healthcare needs. The following is importantdischarge information regarding your hospital visit. Your Care Team GIRMA CORREA Your Diagnosis Shortness of breath What to do next Scheduled Follow-Up Appointments Appointment Type When With Where Contact Information StatusPC OV 10/23/2024 04:00 PM EDT GIRMA CORREA [facility] [phone] Confirmed CV OV Hospital Follow Up 11/08/2024 02:30 PM EDT EDY WEBER [facility] [place] CV Confirmed Follow Up Appointments Follow Up with readmission score is 13 Follow Up with GIRMA CORREA When:Within 1-2 days Where:[address] [facility] [place] [phone] Business (1) The Following Activity and Diet [...] days after discharge, please call [facility] at [phone]. Post Acute Orders No qualifying data available. [...] a day Take with food Pickup at [facility]/pharmacy #[id number] Unchanged acetaminophen (Tylenol) by mouth As needed [...] Two (2) times a day Pickup at [facility]/pharmacy #4140 Unchanged dulaglutide (Trulicity Pen 1.5 mg/ 0.5 [...] by mouth Daily at bedtime Pickup at [facility]/pharmacy #[id number] Unchanged spironolactone (spironolactone 25 mg oral tablet) 1 tab(s) by mouth Once a day Duration: 90 Days Unchanged tiZANidine (tiZANidine 2 mg oral tablet) 1 tab(s) by mouth Every 8 hours as needed for as needed for muscle spasm Duration: 7 Days Unchanged traZODone (traZODone 100 mg oral tablet) 1 tab(s) by mouth Daily at bedtime Pharmacy Information [facility]/pharmacy #[id number]: [facility] [address] [place], [place] [id number] [phone] Please take this list to your next [...] may report side effects to FDA at 1-692-IQZ-9156. What other drugs will affect hydroxyzine? Taking [...] may interact with hydroxyzine, including prescription and bnlj-ywp-kolevba medicines, vitamins, and herbal products. Not all [...] to ensure that the information provided by [employer]. ('[employer]') is accurate, up-to-date, and complete, but no guarantee is made to that effect. Drug information contained herein may be time sensitive. [employer] information has been compiled for use by healthcare practitioners and consumers in the [place] and therefore [employer] does not warrant that uses outside of the [place] are appropriate, unless specifically indicated otherwise. [employer] drug information does not endorse drugs, diagnose patients or recommend therapy. [employer] drug information isan informational resource designed to [...] effective or appropriate for any given patient. [employer] does not assume any responsibility for any aspect of healthcare administered with the aid of information [employer] provides. The information contained herein is not intended to cover all possible uses, directions, precautions, warnings, drug interactions, allergic reactions, or adverse effects. If you have questions about the drugs you are taking, check with your doctor, nurse or pharmacist. Copyright 7443-5946 [employer]. Version: 8.01. Revision Date: 08/10/2016. furosemide (oral/injection) [...] wireless accessories such as remote control, or [employer]oth devices. Do not reuse a needle, syringe [...] blood pressure, such as diet pills or xttey-swi-wtle medicine. What are the possible side effects [...] may report side effects to FDA at 2-747-FSG-2678. What other drugs will affect furosemide? Sometimes [...] drugs may affect furosemide, including prescription and eonn-lit-rfbzuhf medicines, vitamins, and herbal products. Not all [...] to ensure that the information provided by [employer] ('[employer]') is accurate, up-to-date, and complete, but no guarantee is made to that effect. Drug information contained herein may be time sensitive. [employer] information has been compiled for use by healthcare practitioners and consumers in the [place] and therefore [employer] does not warrant that uses outside of the [place] are appropriate, unless specifically indicated otherwise. [employer] drug information does not endorse drugs, diagnose patients or recommend therapy. [employer] drug information isan informational resource designed to [...] effective or appropriate for any given patient. [employer] does not assume any responsibility for any aspect of healthcare administered with the aid of information [employer] provides. The information contained herein is not intended to cover all possible uses, directions, precautions, warnings, drug interactions, allergic reactions, or adverse effects. If you have questions about the drugs you are taking, check with your doctor, nurse or pharmacist. Copyright [employer]. Version: 20.. Revision Date: 11/07/2023. cetirizine (oral/injection) [...] may report side effects to FDA at 4-670-RPA-3698. What other drugs will affect cetirizine? Using cetirizine with other drugs that make you drowsy can worsen this effect. Ask your doctor before using opioid medication, a sleeping pill, a muscle relaxer, or medicine for anxiety or seizures. Other drugs may affect cetirizine, including prescription and knyi-sbu-nxgsvpy medicines, vitamins,and herbal products. Tell your doctor [...] to ensure that the information provided by [employer] ('[employer]') is accurate, up-to-date, and complete, but no guarantee is made to that effect. Drug information contained herein may be time sensitive. [employer] information has been compiled for use by healthcare practitioners and consumers in the [place] and therefore [employer] does not warrant that uses outside of the [place] are appropriate, unless specifically indicated otherwise. [employer] drug information does not endorse drugs, diagnose patients or recommend therapy. [employer] drug information isan informational resource designed to [...] effective or appropriate for any given patient. [employer] does not assume any responsibility for any aspect of healthcare administered with the aid of information [employer] provides. The information contained herein is not intended to cover all possible uses, directions, precautions, warnings, drug interactions, allergic reactions, or adverse effects. If you have questions about the drugs you are taking, check with your doctor, nurse or pharmacist. Copyright 4490-1265 [employer]. Version: 13.. Revision Date: 11/16/2022. dofetilide (mathias [...] may report side effects to FDA at 1-311-MTH-7166. What other drugs will affect dofetilide? Other drugs may interact with dofetilide, including prescription and vdae-ykw-dbdbhch medicines, vitamins, and herbal products. Tell each [...] to ensure that the information provided by [employer] ('[employer]') is accurate, up-to-date, and complete, but no guarantee is made to that effect. Drug information contained herein may be time sensitive. [employer] information has been compiled for use by healthcare practitioners and consumers in the [place] and therefore [employer] does not warrant that uses outside of the [place] are appropriate, unless specifically indicated otherwise. [employer] drug information does not endorse drugs, diagnose patients or recommend therapy. [employer] drug information isan informational resource designed to [...] effective or appropriate for any given patient. [employer] does not assume any responsibility for any aspect of healthcare administered with the aid of information [employer] provides. The information contained herein is not intended to cover all possible uses, directions, precautions, warnings, drug interactions, allergic reactions, or adverse effects. If you have questions about the drugs you are taking, check with your doctor, nurse or pharmacist. Copyright 5557-6058 [employer]. Version: 4.01. Revision Date: 09/09/2015. allopurinol (oral/injection) [...] and call your (more content not included)... [facility] HospitalJizlplww42-20-5182 Pastoral care Progress note Pastoral Care Note Entered On: 10/04/2024 16:17 EDT Performed On: 10/04/2024 14:56 EDT by Sanjay Lucas [facility] Care Type of Pastoral Visit [...] by Sanjay Lucas on 10/04/2024 04:16 PM [facility] HospitalFxpnqhvt55-35-1335 Discharge summary Date of Service 10/04/2024 Discharge [...] When:Within 1-2 days Where:[address] [facility] [place] [phone] Business (1) Follow Up Appointments No qualifying data available. Follow Up Labs/Studies Discharge Labs No Follow-up Labs Discharge Studies No Follow-up Studies Discharge Diet No qualifying data available. Discharge Activity No qualifying data available. Readmission Risk/Palliative Score LACE Score: 13 (10/02/24 10:21:00) Palliative Total Score: 1 (10/02/24 10:21:00) Digitally Signed by DUSTIN RICHARD MD on 10/04/2024 12:27 PM [facility] HospitalTpgekrvo72-86-6033 Discharge summary Date of Service 10/04/2024 Discharge [...] When:Within 1-2 days Where:[address] [place] [phone] Business (1) Follow Up Appointments No qualifying data available. Follow Up Labs/Studies Discharge Labs No Follow-up Labs Discharge Studies No Follow-up Studies Discharge Diet No qualifying data available. Discharge Activity No qualifying data available. Readmission Risk/Palliative Score LACE Score: 13 (10/02/24 10:21:00) Palliative Total Score: 1 (10/02/24 10:21:00) Digitally Signed by DUSTIN RICHARD MD on 10/04/2024 12:27 PM [facility] HospitalJsvydxmr37-74-2484 Cardiology Progress note Date of Service 10/03/2024 [...] DUSTIN RICHARD MD on 10/03/2024 01:50 PM [facility] HospitalOwlpggvc88-48-1910 Note* Exam Date Time Procedure Performing Provider Status 10/03/24 10:08 PM Electrocardiogram - EKG - CV JOHNIE VELÁZQUEZ MD; Auth (Verified) ECG Final Report SINUS RHYTHM LEFT AXIS DEVIATION LOW VOLTAGE, PRECORDIAL LEADS Electronic Signature: JOHNIE VELÁZQUEZ MD 10/04/2024 21:58:08 [facility] [id number] Note* Exam Date Time Procedure Performing Provider Status 10/03/24 4:01 PM Echocardiogram, Adult - CV ALIZA YANES MD; Auth (Verified) [facility] HospitalHjbyrkbh62-54-8984 Cardiology Progress note Date of Service 10/03/2024 [...] DUSTIN RICHARD MD on 10/03/2024 01:50 PM [facility] HospitalPgosygpc92-16-8822 Note* Exam Date Time Procedure Performing Provider Status 10/03/24 10:03 AM Electrocardiogram - EKG - CV JOHNIE VELÁZQUEZ MD; Auth (Verified) ECG Final Report SINUS RHYTHM LOW VOLTAGE, PRECORDIAL LEADS CONSIDER ANTERIOR INFARCT Electronic Signature: JOHNIE VELÁZQUEZ MD 10/04/2024 21:57:56 [facility] HospitalBtfzfsen17-20-8041 Note* Exam Date Time Procedure Performing Provider Status 10/02/24 10:04 PM Electrocardiogram - EKG - CV JOHNIE VELÁZQUEZ MD; Auth (Verified) ECG Final Report SINUS RHYTHM LEFT ANTERIOR FASCICULAR BLOCK PROLONGED QT INTERVAL Electronic Signature: JOHNIE VELÁZQUEZ MD 10/03/2024 19:52:07 [facility] HospitalXongjoyp59-07-4404 History and physical note Date of Service [...] Diabetes mellitus Patient is currently in in [facility] A-fib. Rate is relatively well-controlled. Continue [...] DUSTIN RICHARD MD on 10/02/2024 03:28 PM [facility] HospitalYjlzcesh71-44-6803 Note Date of Service October 02, 2024 [...] only), Blood, Once, Nurse Collect, Preferred Lab: [facility], Stop date 10/03/24 5:00:00 EDT Electrocardiogram(EKG), [...] by MARILUZ BUI on 10/02/2024 02:36 PM [facility] HospitalHwgrqmbd69-47-0638 Note Date of Service October 02, 2024 [...] only), Blood, Once, Nurse Collect, Preferred Lab: [facility], Stop date 10/03/24 5:00:00 EDT Electrocardiogram(EKG), [...] by MARILUZ BUI on 10/02/2024 02:36 PM [facility] HospitalTgzkvnyt91-70-5193 Evaluation + Plan noteExtracted from: Title:History and [...] Appointment Date:10/23/2024 04:00:00 PM Scheduled Provider:GIRMA CORREA Location:[facility] Appointment Type:PC OV Appointment Date:11/08/2024 02:30:00 PM Scheduled Provider:EDY WEBER Location:[facility] Appointment Type:[facility] Hospital Follow Up Diagnostic Tests Pending * Urinalysis w/ C&S if Indicated 10/02/24 Future Scheduled Tests Laboratory* Basic Metabolic Panel 02/07/24 * Basic Metabolic Panel 12/10/24 * Basic Metabolic Panel 02/19/24 * Magnesium Level 02/07/24 * Complete Blood Count 08/27/24 * Complete Metabolic Panel 08/27/24 * N-Terminal proBNP 08/27/24 [facility] 05-07-2025 Note* Exam Date Time Procedure Performing Provider Status 10/02/24 1:53 PM Electrocardiogram - EKG - CV Brant VELÁZQUEZ MD; Auth (Verified) ECG Final Report SINUS RHYTHM PROBABLE LEFT ATRIAL ENLARGEMENT Left axis deviation Electronic Signature: JOHNIE VELÁZQUEZ MD 10/03/2024 19:51:33 [facility] [id number] History and physical note Date of Service [...] Diabetes mellitus Patient is currently in in [facility] A-fib. Rate is relatively well-controlled. Continue [...] DUSTIN RICHARD MD on 10/02/2024 03:28 PM [facility] HospitalLethgkjt14-00-9488 Respiratory therapy Hospital Progress note Respiratory Therapy [...] by CURTIS Patton on 10/02/2024 11:12 AM [facility] HospitalKpvbjukd43-64-2728 Note* Exam Date Time Procedure Performing Provider Status 10/02/24 8:23 AM Electrocardiogram - EKG - CV Brant VELÁZQUEZ MD; Auth (Verified) ECG Final Report ATRIAL FIBRILLATION LEFT ANTERIOR FASCICULAR BLOCK Electronic Signature: JOHNIE VELÁZQUEZ MD 10/03/2024 19:51:22 [facility] HospitalJrfyvkii44-13-7059 Note* Exam Date Time Procedure Performing Provider Status 10/02/24 6:24 AM Electrocardiogram - EKG - CV Brant VELÁZQUEZ MD; Auth (Verified) ECG Final Report ATRIAL FIBRILLATION WITH RAPID VENTRICULAR RESPONSE Right axis deviation Electronic Signature: JOHNIE VELÁZQUEZ MD 10/03/2024 19:51:11 [facility] [id number] Nurse Progress note bryon Nicole [phone] Digitally Signed by Halley Staples RN on 10/02/2024 04:26 AM [facility]05-07-2025 Nurse Progress note ready bed at main, transport called at 0230 ETA 90 min Digitally Signed by Halley Staples RN on 10/02/2024 04:22 AM [facility]05-07-2025 Nurse Progress note ready bed at main, transport called at 0230 ETA 90 min Digitally Signed by Halley Staples RN on 10/02/2024 04:22 AM [facility]05-07-2025 Note* Exam Date Time Procedure Performing Provider Status 10/02/24 1:43 AM XR Chest 1 View DARNELL MOLINA MD; [facility] ([facility]ified[facility] [id number] ORIGINAL EXAMINATION: ONE XRAY VIEW OF THE [...] 10/02/2024 2:02:33 AM Ordering Provider: DELORES MURO [facility]05-07-2025 Note* Exam Date Time Procedure Performing Provider Status 10/02/24 12:38 AM EKG [ED AOH] - CV JINA DELORES STONE; [facility] (Verified) ECG Final Report Atrial fibrillation Inferior infarct, old Probable anteroseptal infarct, old Prolonged QT interval Baseline wander in lead(s) III,V1,V2,V5,V6 Compared to ECG at 08/13/2024 11:03:57 Electronic Signature: DELORES MURO DO 10/02/2024 02:28:42 [facility]10-30-2024 Note The microscopic examination is performed, except in the case of Gross Only. [facility] 10-29-2024 Note The microscopic examination is performed, except in the case of Gross Only. [facility] 10-29-2024 Note The microscopic examination is performed, except in the case of Gross Only. [facility] 10-29-2024 Note The microscopic examination is performed, except in the case of Gross Only. [facility] 10-29-2024 Note The microscopic examination is performed, except in the case of Gross Only. [facility] 10-29-2024 Note The microscopic examination is performed, except in the case of Gross Only. [facility] 10-29-2024 Note The microscopic examination is performed, except in the case of Gross Only. [facility] 09-11-2024 Evaluation + Plan note Future Scheduled Tests Laboratory* Basic Metabolic Panel 02/07/24 * Basic Metabolic Panel 12/10/24 * Basic Metabolic Panel 02/19/24 * Magnesium Level 02/07/24 * Complete Blood Count 08/27/24 * Complete Metabolic Panel 08/27/24 * N-Terminal proBNP 08/27/24 [facility] 09-09-2024 Note. MICRO - Microbiology PROCEDURE: [...] Locations *1: This test was performed at: [address]09-09-2024 Note. MICRO - Microbiology PROCEDURE: Blood [...] Locations *1: This test was performed at: [address]09-09-2024 Note. MICRO - Microbiology PROCEDURE: Blood [...] Locations *1: This test was performed at: [address], [address] [place] [address] [id number] Note. MICRO - Microbiology PROCEDURE: Blood Culture [...] Locations *1: This test was performed at: [address], [address] [place] [address] [id number] Hospital Discharge instructions Patient Education 02/01/2024 17:18:13 Atrial Fibrillation, Mxho-is-Hcao Atrial Fibrillation Atrial fibrillation is a type [...] Follow these instructions at home: Medicines Take bfdr-mli-jvrqiwf and prescription medicines only as told by [...] 02/21/2009 Document Revised: 07/19/2018 Document Reviewed: 07/06/2018 [employer] Patient Education 2020 [employer]. Follow Up Care 01/31/2024 00:20:11 With:GIRMA CORREA APRN-[facility] Address: [address] [place] [address]- When:1-2 days Comments:Please call the office to schedule a hospital follow-up appointment. [facility] 09-05-2024 Note Discharge Instructions Thank you for allowing [facility] to assist you with your healthcare needs. The following is importantdischarge information regarding your hospital visit. Your Care Team GIRMA CORREA Your Diagnosis Shortness of breath What to do next Instructions From Your Doctor Resume taking all your usual medications Keep yourself hydrated Follow-up with your primary care physician and syrup maker Scheduled Follow-Up Appointments Appointment Type When With Where Contact Information StatusPC Wellness Annual w/Labs 02/13/2024 03:30 PM EDT GIRMA CORREA [facility] Confirmed Follow Up Appointments Follow Up with GIRMA CORREA When:Within 1-2 days Where:[address] [place] [place] [address]- Additional Information: Please call the office to [...] Follow these instructions at home: Medicines Take thmt-tdy-tovyjtx and prescription medicines only as told by [...] 02/21/2009 Document Revised: 07/19/2018 Document Reviewed: 07/06/2018 [employer] Patient Education 2020 [employer] Additional Information VACCINATE! IT SAVES LIVES! Members of the community who have not yet received the COVID-19 vaccine and would like to receive it can visit one of [facility] vaccine clinics. There are many vaccine clinic locations within the [facility]. For locations and available times, please visit [email or web address] It is important to note that some COVID mobile vaccine clinics are held outdoors and may be canceled in rainy or stormy conditions. To learn more about pediatric vaccinations (ages 5-11), we invite you to visit the [facility] webpage. [email or web address] learn more about the COVID-19 vaccine, we invite you to visit the CDC website for a list of frequently asked questions.https://www.cdc.gov/coronavirus/2019-ncov/vaccines/faq.html [facility] Patient Portal Access Instructions: Stay connected with your healthcare team and access your personal medical information anytime with the [facility] Patient Portal. Please follow the directions below to create your [facility] account: 1.Access the email account you provided upon registration to the hospital/physician office.2.Look for an invitation email from [facility].3.Open the email and access the invitation link: AcceptInvitation to [facility].4.Fill in the required orr to create your account. To access your account, visit [employer]/Health [facility] LaboratoryOneChart. Click the blue button labeled Access Patient [...] who you will allowto register on the [facility] Patient Portal for access to your information. You can also access the [facility] Patient Portal on the [facility] Anywhere frida. Simply click on Patient Portal and then log into your account. If you would like to receive a full copy of your medical records, please contact the [facility] Medical Records Department by calling [phone], Monday through Monday between 8 a.m. and [...] Call your local pharmacy or go to [email or web address] to find one close to you.3.Make use of household items: Use cat litter or old coffee grounds to dispose medications if other options arenot available. Mix your drugs with these household products, seal them in an airtight container andthrow it into the garbage. Call [facility]: [phone] to be sure your drugs can be [...] COPY. Signatures Patient Education Materials Atrial Fibrillation, Amxg-ji-Tskj Medication Leaflets My discharge plan and instructions have been reviewed and explained to me and I,WARREN, CARLOS ALBERTO Epstein understand my current condition and have read and understand these discharge instructions. I have received awritten copy of the plan/instructions. If I have questions, I am aware that I should contact my doctor. Patient/Reacher Signature: Date/Time: Relationship to Patient: Witness Name/Signature: Date/Time: [facility] [id number] Discharge summary Date of Service 02/01/2024 Discharge [...] diabetes mellitus. The patient presented to the [facility] on 01/31/2024 as a transfer from [place] for A-fib with RVR. 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 Blood Glucose Test Strips: See Instructions, 1 bottle of 100 Test once daily, # 1 EA, 11 Refill(s), Pharmacy: [facility], 177.8, cm, 11/28/23 13:54:00 EDT, Height, 151.4, kg, 11/28/23 13:54:00 EDT, Dosing Weight FLUoxetine 20 mg oral capsule: Dose : 20 mg = 1 cap(s), Oral, qDay, # 30 cap(s), 3 Refill(s), Pharmacy: [facility], 177.8, cm, 11/28/23 13:54:00 EDT, Height, kg, 11/28/23 13:54:00 EDT,Dosing Weight Lancets: See Instructions, qs 1 month supply Test once daily, # 1 EA, 11 Refill(s), Pharmacy: [facility], 177.8, cm, 11/28/23 13:54:00 EDT, Height, 151.4, kg, 11/28/23 13:54:00 EDT, Dosing Weight Lasix 40 mg oral tablet: See Instructions, 1 tab in AM and 0.5 tab in PM, # 135 tab(s), 3 Refill(s), Pharmacy: [facility], 177.8, cm, 11/28/23 13:54:00 EDT, Height, kg, 11/28/23 13:54:00 EDT, Dosing Weight Symbicort 80 mcg-4.5 mcg/inh Inhaler: Dose = 2 puff(s), Inhalation, BID, # 10.2 gram(s), 3 Refill(s), Pharmacy: [facility], 177.8, cm, 11/28/23 13:54:00 EDT, Height, kg, 11/28/23 13:54:00 EDT, Dosing Weight Tikosyn 250 mcg oral capsule: Dose : 250 mcg = 1 cap(s), Oral, BID, # 180 cap(s), 3 Refill(s), Pharmacy: [facility]/pharmacy #[id number], 177.8, cm, 11/28/23 13:54:00 EDT, Height, kg, 11/28/23 13:54:00 EDT, Dosing Weight Toprol-XL 100 mg oral tablet, extended release: Dose : 100 mg = 1 tab(s), Oral, BID, do not crush or chew, # 180 tab(s), 3 Refill(s), Pharmacy: [facility], Shortness of breath, 177.8, cm, 11/28/23 13:54:00 EDT, Height, kg, 11/28/23 13:54:00 EDT, Dosing Weight Trulicity Pen 1.5 mg/0.5 mL subcutaneous solution: Dose : 1.5 mg =, Subcutaneous, qWeek, sent in absence of PCP, # 4 EA, 3 Refill(s), Pharmacy: [facility], 177.8, cm, 11/28/23 13:54:00EDT, Height, kg, 11/28/23 13:54:00 EDT, Dosing Weight Vistaril 25 mg oral capsule: Dose : 25 mg = 1 cap(s), Oral, QID, PRN as needed for anxiety, X 30 day(s), # 120 cap(s), 5 Refill(s), 06/09/24 16:10:00 EST, Pharmacy: [facility], 177.8, cm, 11/28/23 13:54:00 EDT, Height, kg, 11/28/23 13:54:00 EDT, Dosing Weight Xarelto 20 mg oral tablet: Dose : 20 mg = 1 tab(s), Oral, qHS, # 90 tab(s), 3 Refill(s), Pharmacy: [facility], 177.8, cm, 11/28/23 13:54:00 EDT, Height, 151.4, kg, 11/28/23 13:54:00 EDT, Dosing Weight allopurinol 100 mg oral tablet: Dose : 100 mg = 1 tab(s), Oral, qDay, # 90 tab(s), 3 Refill(s), Pharmacy: [facility], 177.8, cm, 11/28/23 13:54:00 EDT, Height, kg, 11/28/23 13:54:00 EDT, Dosing Weight cetirizine 10 mg oral tablet: Dose : 10 mg = 1 tab(s), Oral, Daily, # 90 tab(s), 3 Refill(s), Pharmacy: [facility], 177.8, cm, 11/28/23 13:54:00 EDT, Height, kg, 11/28/23 13:54:00 EDT,Dosing Weight nystatin 100,000 units/g topical cream: Apply 1 frida, Topical, BID, X 10 day(s), # 30 gram(s), 1 Refill(s), Pharmacy: [facility]/pharmacy #[id number], Cream, 177, cm, 01/12/24 9:42:00 EDT, Height, 148.6, kg, 01/12/24 9:42:00 EDT, Dosing Weight omeprazole 40 mg oral delayed release capsule: Dose : 40 mg = 1 cap(s), Oral, BID, before a meal., # 180 cap(s), 3 Refill(s), Pharmacy: [facility], 177.8, cm, 11/28/23 13:54:00 EDT, Height, kg, 11/28/23 13:54:00 EDT, Dosing Weight rosuvastatin 20 mg oral tablet: Dose : 20 mg = 1 tab(s), Oral, Daily, # 100 tab(s), 3 Refill(s), Pharmacy: [facility], 177.8, cm, 11/28/23 13:54:00 EDT, Height, kg, 11/28/23 13:54:00 EDT, Dosing Weight sacubitril-valsartan 49 mg-51 mg oral tablet: Dose = 1 tab(s), Oral, BID, # 180 tab(s), 3 Refill(s), Pharmacy: [facility], 177.8, cm, 11/28/23 13:54:00 EDT, Height, kg, 11/28/23 13:54:00 EDT, Dosing Weight spironolactone 25 mg oral tablet: Dose : 25 mg = 1 tab(s), Oral, qDay, # 90 tab(s), 3 Refill(s), Pharmacy: [facility], 177.8, cm, 11/28/23 13:54:00 EDT, Height, kg, 11/28/23 13:54:00 EDT, Dosing Weight tiZANidine 2 mg oral tablet: Dose : 2 mg = 1 tab(s), Oral, q8h, PRN as needed for muscle spasm, # 90 tab(s), 2 Refill(s), Pharmacy: [facility], 177.8, cm, 11/28/23 13:54:00 EDT, Height, kg, 11/28/23 13:54:00 EDT, Dosing Weight traZODone 100 mg oral tablet: Dose : 100 mg = 1 tab(s), Oral, qHS, # 90 tab(s), 3 Refill(s), Pharmacy: [facility], 177.8, cm, 11/28/23 13:54:00 EDT, [...] list: Medical Asthma exacerbation / SNOMED CT 1154504972 / Confirmed Anxiety / SNOMED CT 11035768 / Confirmed Atopic dermatitis / SNOMED CT 13574602 / Confirmed BMI 45.0-49.9, adult / SNOMED CT 4781297060 / Confirmed Cardiomyopathy / SNOMED CT 553241413 / Confirmed Diabetes mellitus / SNOMED CT 218298930 / Confirmed Generalized anxiety disorder / SNOMED CT 18604802 / Confirmed Hyperlipidemia / SNOMED CT 60670855 / Confirmed Hypertension / SNOMED CT 1309321501 / Confirmed Insomnia / SNOMED CT 754880928 / Confirmed Moderate asthma / SNOMED CT 9918914343 / Confirmed Morbid obesity / SNOMED CT 234434658 / Confirmed Chewing tobacco nicotine dependence / SNOMED CT 11993289 / Confirmed Obstructive sleep apnea / SNOMED CT 832573364 / Confirmed Right knee pain / SNOMED CT 1461929406 / Confirmed Paroxysmal atrial fibrillation / SNOMED CT 051406184 / Confirmed Screening for ischemic heart disease / SNOMED CT 010898700 / Confirmed Screening for colon cancer / SNOMED CT 703567765 / Confirmed Prediabetes / SNOMED CT 2985050905 / Confirmed Right flank pain / SNOMED CT 839355558 / Confirmed Type 2 diabetes mellitus with hemoglobin A1c goal of less than 7.0% / SNOMED CT 026832348 / Confirmed Wheezing / SNOMED CT 04920721 / Confirmed, Active Problems (26) Anxiety Asthma [...] Mother Grandparent Stroke Father Procedure history: Cardioversion ([id number]) on 12/23/2022 at 52 Years. Echocardiogram ([id number]) on 11/11/2022 at 52 Years. Comments: 03/20/2023 [...] atrial pressure is 15 mm Hg Elbow ([id number]). Comments: 07/11/2022 8:26 EST - Bharath, SHAHEEN [...] On and Limits Checked Nail Bed Color Wilkinson Capillary Refill < 2 seconds Heart Sounds [...] Elimination Voiding, no difficulties All Extremity Description Wilkinson Skin Temperature Warm Temperature All Extremities Warm Skin Description Wilkinson, Dry Skin Integrity Intact Skin Turgor Non-Elastic Mucous Membrane Color Wilkinson Mucous Membrane Description Moist Neurological Language Able to speak clearly Neurological Symptoms Patient denies Gait Unable to assess Extremity Movement Equal Swallowing Difficulty None Characteristics of Communication Appropriate Characteristics of Speech Clear Facial Symmetry Symmetric Level of Consciousness Alert Aspiration Risk None Eye Opening Response [place] Spontaneously Best Motor Response Luis Felipe Obeys simple commands Best Verbal Response [place] Oriented Luis Felipe Coma Score 15 CLARA [...] On and Limits Checked Nail Bed Color Wilkinson Capillary Refill < 2 seconds Heart Sounds ICU S1S2 Heart Rhythm Irregular Cardiac Rhythm Sinus rhythm Monitoring Lead II, V5/MCL5 IL Interval 0.16 second(s) QRS Duration 0.08 second(s) [...] Elimination Voiding, no difficulties All Extremity Description Wilkinson Skin Temperature Warm Temperature All Extremities Warm Skin Description Wilkinson, Dry Skin Integrity Intact Skin Turgor Non-Elastic Mucous Membrane Color Wilkinson Mucous Membrane Description Moist Neurological Language Able to speak clearly Neurological Symptoms Patient denies Gait Unable to assess Extremity Movement Equal Swallowing Difficulty None Characteristics of Communication Appropriate Characteristics of Speech Clear Facial Symmetry Symmetric Level of Consciousness Alert Aspiration Risk None Eye Opening Response [place] Spontaneously Best Motor Response [place] Obeys simple commands Best Verbal Response Luis Felipe Oriented [place] Coma Score 15 CLARA Yes Strength All [...] date/time 01/31/2024 22:20 Provider Notified MILY MAURER APRN-[facility] Notification Method Pager Information Communicated Medication request [...] On and Limits Checked Nail Bed Color Wilkinson Capillary Refill < 2 seconds Heart Sounds [...] Movement Makes facial grimaces All Extremity Description Wilkinson Skin Temperature Warm Temperature All Extremities Warm Skin Description Wilkinson, Dry Skin Integrity Intact Skin Turgor Non-Elastic Mucous Membrane Color Wilkinson Mucous Membrane Description Moist Sensory Perception [place] [...] Response Luis Felipe Spontaneously Best Motor Response [place] Obeys simple commands Best Verbal Response [place] Oriented Luis Felipe Coma Score 15 CLAAR Yes Left Pupil Description Regular, Round Right [...] On and Limits Checked Nail Bed Color Wilkinson Capillary Refill < 2 seconds Heart Sounds [...] intact Skin Turgor Non-Elastic Mucous Membrane Color Wilkinson Mucous Membrane Description Moist Neurological Language Able to speak clearly Neurological Symptoms Patient denies Extremity Movement Equal Swallowing Difficulty None Characteristics of Communication Appropriate Characteristics of Speech Clear Facial Symmetry Symmetric Level of Consciousness Alert Aspiration Risk None Eye Opening Response Luis Felipe Spontaneously Best Motor Response [place] Obeys simple commands Best Verbal Response Luis Felipe Oriented [place] Coma Score 15 CLARA Yes Left Pupil [...] of Bed Elevated 30 01/31/2024 15:38 EDT [facility] Current Living Situation I have a steady place to live [facility] Current Issues Living Environment None [facility] Worried Food Running Out P12M Never true [facility] Food Gone, No Money To Buy P12M Never true [facility] No Transport Med/Appt/Work P12M No [facility] Utilities Threaten Shut Off P12M No [facility] Anyone Physically Hurt You Never (1) [facility] Anyone Insult Or Talk Down To You Never (1) [facility] Anyone Threaten You With Harm Never (1) [facility] Anyone Scream Or Curse At You Never (1) [facility] Safety Total Score 4 Living Situation Lives with family Discharge To, Anticipated Home independently Anticipated Discharge Date 02/02/2024 Transition Planning Note Transition Planning Initial Assessment 01/31/2024 15:36 EDT Primary Care Phone Message Transition of Care sent from [facility] 01/31/2024 14:59 EDT heparin 9,000 unit(s) unit(s) Dextrose 5% Premix Diluent 90 mL mL 01/31/2024 14:43 EDT [place] Body Weight 72.7 kg Home Diet Regular Weight Chg, Unintentional Nutrition Hx Weight stable per [place] history Appetite Good Nutrition Plan of Care Dietitian follow up/monitor, Encourage PO feedings, Participate in team conference Nutrition Follow-Up Needed Yes Days until Quotation Clerk Follow Up Seven days Adult Nutrition Initial Assessment/Plan Adult Nutrition Assessment/Plan 01/31/2024 14:22 EDT Transition of Care Note Transition of Care sent from [facility] 01/31/2024 14:00 EDT Hand Right 01/30/2024 [...] On and Limits Checked Nail Bed Color Wilkinson Capillary Refill < 2 seconds Heart Rhythm [...] Description Normal for ethnicity Mucous Membrane Color Wilkinson Mucous Membrane Description Moist Hand Right 01/30/2024 [...] On and Limits Checked Nail Bed Color Wilkinson Capillary Refill < 2 seconds Heart Rhythm [...] intact Skin Turgor Non-Elastic Mucous Membrane Color Wilkinson Mucous Membrane Description Moist Continuous IV Infusions [...] Alert Aspiration Risk None Eye Opening Response [place] Spontaneously Best Motor Response [place] Obeys simple commands Best Verbal Response [place] Oriented Luis Felipe Coma Score 15 CLARA [...] On and Limits Checked Nail Bed Color Wilkinson Capillary Refill < 2 seconds Heart Rhythm Irregular Pretibial edema Bilateral Edema Ratin+ trace/2mm Cardiac Rhythm Atrial fibrillation Monitoring Lead II, V6/MCL6 Alarms On and Functional Yes Respirations Unlabored Respi (more content not included)... [facility] [id number] NoteSINUS RHYTHM IVCD MISSING LEAD(S): V1,V2,V3,V4,V5 Electronic Signature: MOY WATTS MD 02/01/2024 11:10:[address] [place] [address] 09-04-2024 Cardiology Consult note Date of Service 01/31/2024 Reason for Consultation A-fib on Tikosyn Referring Physician Dr. Yanes History of Present Illness CVC: Dr. 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 Patient transferred to [facility] for further management. Placed on Levophed. [...] (s): 1.87 H Assessment/Plan A-fib with RVR ([id number] 2) Near syncopal episode Tachycardia mediated cardiomyopathy [...] Will continue to follow. Patient seen with syrup maker Dr. Hartley who agreed with plan. Please [...] MICHELLE HENRY MD on 01/31/2024 12:53 PM [facility] [id number] Note* Exam Date Time Procedure Performing Provider Status 01/31/24 4:20 PM Echocardiogram, Adult - CV Auth (Verified) [facility] 09-04-2024 Note. MICRO - Microbiology PROCEDURE: [...] Locations *1: This test was performed at: [address], [facility]01-31-2024 Note. MICRO - Microbiology PROCEDURE: Blood Culture [...] Locations *1: This test was performed at: [address], [facility] , [facility]01-31-2024 Evaluation + Plan noteExtracted from: Title:History and Physical Author:FRACISCO YANES Date:01/31/24 A-fib with RVR Hx of A-fib [...] prophylactically got a dose of ceftriaxone at [place]. We will continue with prophylactic ceftriaxone dose [...] atrial fibrillation with rapid ventricular rate at [facility] admitted to the ICU overnight started on [...] Appointment Date:02/13/2024 03:30:00 PM Scheduled Provider:GIRMA CORREA Location:[facility] Appointment Type: Wellness Annual w/Labs Diagnostic Tests Pending * Culture Respiratory with Gram Stain 01/31/24 * APTT 02/01/24 Future Scheduled Tests Laboratory* Basic Metabolic Panel 04/01/23 * Prostate Specific Antigen 02/07/24 * A1C Hemoglobin 02/07/24 * Lipid Profile 02/07/24 * Complete Metabolic Panel 02/07/24 [facility] 09-04-2024 History and physical note Date [...] evaluated On arrival to the ER at [place], patient was febrile 37.4, tachycardic 133, tachypneic 21, BP 90/76, was saturating 96% on room air. Labs done at [place] 01/30/2024 revealed pO2 51 on the gases [...] prophylactically got a dose of ceftriaxone at [place].We will continue with prophylactic ceftriaxone dose as [...] qualifying data available. Digitally Signed by FRACISCO YANES MD on 01/31/2024 03:31 AM Digitally Signed by FRACISCO YANES MD on 01/31/2024 04:52 AM Digitally Signed by CINDY FLORES MD on 01/31/2024 08:06 AM [facility]zgz[facility]nd75[facility]4900 Cardiology Consult note Date of Service 01/31/2024 Reason for Consultation A-fib on Tikosyn Referring Physician Dr. Yanes History of Present Illness CVC: Dr. 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 Patient transferred to [facility] for further management. Placed on Levophed. [...] (s): 1.87 H Assessment/Plan A-fib with RVR ([id number] 2) Near syncopal episode Tachycardia mediated cardiomyopathy [...] Will continue to follow. Patient seen with syrup maker Dr. Hartley who agreed with plan. Please [...] MICHELLE HENRY MD on 01/31/2024 12:53 PM [facility] HospitalDppkgbhv77-75-9690 NoteATRIAL FIBRILLATION LAD, CONSIDER LEFT ANTERIOR FASCICULAR BLOCK LOW VOLTAGE, PRECORDIAL LEADS BORDERLINE T ABNORMALITIES, INFERIOR LEADS BORDERLINE PROLONGED QT INTERVAL Electronic Signature: MOY WATTS MD 02/01/2024 11:10:[address] [place] [address] 09-04-2024 Note. MICRO - Microbiology PROCEDURE: Blood [...] Locations *1: This test was performed at: [facility], [address] [place] [address], [facility] , [facility] ([place])01-31-2024 Note. MICRO - Microbiology PROCEDURE: Blood Culture [...] Locations *1: This test was performed at: [facility], [address] [place] [address], [facility]- , [facility] ([place])01-31-2024 History and physical note Date of Service [...] evaluated On arrival to the ER at [place], patient was febrile 37.4, tachycardic 133, tachypneic 21, BP 90/76, was saturating 96% on room air. Labs done at [place] 01/30/2024 revealed pO2 51 on the gases [...] prophylactically got a dose of ceftriaxone at [place].We will continue with prophylactic ceftriaxone dose as [...] qualifying data available. Digitally Signed by FRACISCO YANES MD on 01/31/2024 03:31 AM Digitally Signed by FRACISCO YANES MD on 01/31/2024 04:52 AM Digitally Signed by CINDY FLORES MD on 01/31/2024 08:06 AM [facility] [id number] Note ORIGINAL EXAMINATION: CT OF THE HEAD [...] Sign Date: 01/30/2024 10:16:46 PM Ordering Provider: [facility]09-03-2024 Note ORIGINAL EXAMINATION: ONE XRAY VIEW OF [...] resident's findings and interpretation. Interpreted by: Trace Clark Preliminary Report By: Kike Acevedo Electronically signed By Trace Clark Dictated Date: 01/30/2024 9:24:47 PM Prelim Date: 01/30/2024 9:26:56 PM Sign Date: 01/30/2024 9:28:12 PM Ordering Provider: SAMY [facility]09-03-2024 NoteAtrial flutter Left anterior fascicular block Borderline low voltage, extremity leads Abnormal R-wave progression, late transition Borderline ST depression, lateral leads Prolonged QT interval Baseline wander in lead(s) V3,V5 Electronic Signature: MD SAMY JONES MD 01/30/2024 21:01:46[facility] 03-13-2024 Hospital Discharge instructions Patient Education [...] get worse or if new symptoms appear. 4292-5700 [employer]. [address] [place] [address]. All rights reserved. This information is not intended as a substitute for professional medical care. Always follow yourhealthcare professional's instructions. Follow Up Care 08/09/2023 21:02:01 With:GIRMA CORREA Address: [address] [place] [address] [phone] Business (1) When:5-7 days Comments:Use warm compresses, Tylenol as discussed, return if any worsening or concerning symptoms. Follow-up closely with your doctor. [facility] 03-13-2024 Note Discharge Instructions Thank you [...] with your doctor. Where: [address] [place] [address]- [phone] Business (1) Allergies NKA Medications Please ask [...] get worse or if new symptoms appear. [phone] [employer]. [address] [place] [address]. All rights reserved. This information is not intended as a substitute for professional medical care. Always follow yourhealthcare professional's instructions. Additional Information VACCINATE! IT SAVES LIVES! Members of the community who have not yet received the COVID-19 vaccine and would like to receive it can visit one of [facility] vaccine clinics. There are many vaccine clinic locations within the [facility]. For locations and available times, please visit www.gettheshot.coronavirus.[place].gov/. It is important to note that some COVID mobile vaccine clinics are held outdoors and may be canceled in rainy or stormy conditions. To learn more about pediatric vaccinations (ages 5-11), we invite you to visit the [facility] webpage. https://www.[facility].org/pages/4725-Veuzz-Cfccptbvvbp-Xqffmcultk-Qgmrd-Emz stions.htmlTo learn more about the COVID-19 vaccine, we invite you to visit the CDC website for a list of frequently asked questions. https://www.cdc.gov/coronavirus/2019-ncov/vaccines/faq.html [facility] Patient Portal Access Instructions: Stay connected with your healthcare team and access your personal medical information anytime with the [facility] Patient Portal. If you would like a full copy of your medical records please contact the [facility] Medical Records Department Monday through Monday between 8a.m. and 4:30p.m. Please follow the directions below to access the portal: 1.Access the email account you provided upon registration to the [facility].2.Look for an invitation email from [facility].3.Open the email and access the invitation link: Accept Invitation to [facility]4.Fill in the required orr to create your account. Sign into [email or web address] with your username and password that you [...] you will allow to register on the [facility] Patient Portal for access to your information. You can also access the [facility] Patient Portal on the Five9. Simply click on Health Records under [employer] Lighting[employer] and then click on the Larry logo. [...] Call your local pharmacy or go to http://Zubka.24 Media Network/5G6Km3p to find one close to you.3.Make use of household items: Use cat litter or old coffee grounds to dispose medications if other options arenot available. Mix your drugs with these household products, seal them in an airtight container andthrow it into the garbage. Call [facility]: [phone] to be sure your drugs can be [...] and explained to me and I,CARLOS ALBERTO HOROWITZ understand my current condition and have read and understand these discharge instructions. I have received awritten copy of the plan/instructions. If I have questions, I am aware that I should contact my doctor. Patient/Reacher Signature: Date/Time: Relationship to Patient: Witness Name/Signature: Date/Time: [facility]01-16-2024 Hospital Discharge instructions Patient Education 06/13/2023 [...] exposed to secondhand smoke. You may use dmjc-rhg-cahfjsx medicine to control fever or pain, unless [...] loosen secretions in the nose and lungs. Mdel-xmf-pbimgat cough, cold, and sore-throat medicines will not [...] shortness of breath, or pain with breathing [phone] [employer]. [address] [place] [address]. All rights reserved. This information is not intended as a substitute for professional medical care. Always follow yourhealthcare professional's instructions. Follow Up Care 06/13/2023 00:01:18 With:GIRMA CORREA Address: [address] [facility] [place] [address]- [phone] Business (1) When:3-7 days Comments:Schedule appointment for [...] portal.Return to the ED if symptoms worsen. [facility] 01-16-2024 Note Discharge Instructions Thank you for allowing [facility] to assist you with your healthcare needs. [...] to the ED if symptoms worsen. Where: [facility] [address] [facility] [place] [address] [phone] Business (1) Allergies NKA Medications Please ask [...] exposed to secondhand smoke. You may use vjab-fpn-xhziflj medicine to control fever or pain, unless [...] loosen secretions in the nose and lungs. Hykr-wgm-djfvzgy cough, cold, and sore-throat medicines will not [...] shortness of breath, or pain with breathing [phone] [employer]. [address] [place] [address]. All rights reserved. This information is not intended as a substitute for professional medical care. Always follow yourhealthcare professional's instructions. Additional Information VACCINATE! IT SAVES LIVES! Members of the community who have not yet received the COVID-19 vaccine and would like to receive it can visit one of [facility] vaccine clinics. There are many vaccine clinic locations within the [facility]. For locations and available times, please visit www.gettheshot.coronavirus.[place].gov/. It is important to note that some COVID mobile vaccine clinics are held outdoors and may be canceled in rainy or stormy conditions. To learn more about pediatric vaccinations (ages 5-11), we invite you to visit the [facility] webpage. https://www.[facility].org/pages/5406-Fkfui-Uohfzbqqxff-Nlfgzdofff-Hmvfr-Lem stions.htmlTo learn more about the COVID-19 vaccine, we invite you to visit the CDC website for a list of frequently asked questions. https://www.cdc.gov/coronavirus/2019-ncov/vaccines/faq.html [facility] Patient Portal Access Instructions: Stay connected with your healthcare team and access your personal medical information anytime with the [facility] Patient Portal. If you would like a full copy of your medical records please contact the [facility] Medical Records Department Monday through Monday between 8a.m. and 4:30p.m. Please follow the directions below to access the portal: 1.Access the email account you provided upon registration to the [facility].2.Look for an invitation email from [facility].3.Open the email and access the invitation link: Accept Invitation to [facility]oo4.Fill in the required orr to create your account. Sign into www.[email or web address] with your username and password that you [...] you will allow to register on the [facility] Patient Portal for access to your information. You can also access the [facility] Patient Portal on the Five9. Simply click on Health Records under Famigo and then click on the [facility] logo. HOW TO SAFELY DISPOSE OF PRESCRIPTION [...] Call your local pharmacy or go to http://bit.24 Media Network/4Z5Yz0t to find one close to you.3.Make use of household items: Use cat litter or old coffee grounds to dispose medications if other options arenot available. Mix your drugs with these household products, seal them in an airtight container andthrow it into the garbage. Call [facility]: [phone] to be sure your drugs can be [...] aware that I should contact my doctor. Patient/Reacher Signature: Date/Time: Relationship to Patient: Witness Name/Signature: Date/Time: [facility]01-16-2024 Note ORIGINAL EXAMINATION: ONE XRAY VIEW [...] No definite focal consolidation. Interpreted by: Trace Clark Preliminary Report By: Trace Clark Electronically signed By Trace Clark Dictated Date: 06/13/2023 12:39:17 AM Prelim Date: 06/13/2023 12:39:50 AM Sign Date: 06/13/2023 12:39:50 AM Ordering Provider: DEMI [facility]01-12-2024 Hospital Discharge instructions Patient Education 06/09/2023 20:03:33 Atrial Fibrillation, Lnre-yo-Evmx Atrial Fibrillation Atrial fibrillation is a type [...] Follow these instructions at home: Medicines Take lylq-nqk-hjtvdpp and prescription medicines only as told by [...] 02/21/2009 Document Revised: 07/19/2018 Document Reviewed: 07/06/2018 Karit[employer] Patient Education 2020 [employer]. Follow Up Care 06/06/2023 16:24:50 With:GIRMA CORREA Address: [address] [place], [place] [address]- [phone] When: Unknown Comments:PLEASE CALL THIS OFFICE TO SCHEDULE A HOSPITAL FOLLOW UP APPOINTMENT With:MOY WATTS MD Address: [address] [place], [place] [address]- [phone] When:07/17/2023 15:15:00 Comments:THIS APPOINTMENT WILL BE WITH ZHOU ESPINOSA CNP [facility] 01-12-2024 Note Discharge Instructions Thank you for allowing [facility] to assist you with your healthcare needs. The following is importantdischarge information regarding your hospital visit. Your Care Team GIRMA CORREA Your Diagnosis Shortness of breath What to do next Scheduled Follow-Up Appointments Appointment Type When With Where Contact InformationPC OV 06/20/2023 02:30 PM EST GIRMA CORREA [facility] CV OV 07/17/2023 03:15 PM EST ZHOU ESPINOSA [facility] Follow Up Appointments Follow Up with MOY WATTS MD When 07/17/2023 03:15 PM EST Why: THIS APPOINTMENT WILL BE WITH ZHOU ESPINOSA CNP Where: [address] [place] [address]- [phone] Follow Up with GIRMA CORREA When Why: PLEASE CALL THIS OFFICE TO SCHEDULE A HOSPITAL FOLLOW UP APPOINTMENT Where: [address] [place] [address]- [phone] The Following Activity and Diet Have Been [...] day Refills: 2 Pickup at [id number] Changed FLUoxetine (FLUoxetine 10 mg oral capsule) 1 cap by mouth Once a day Pickup at [facility] #[id number] Unchanged allopurinol (allopurinol 100 mg oral tablet) [...] Daily at bedtime Pharmacy Information [facility] #[id number]: [address] [place] [address] [phone] Please take this list to your next [...] may report side effects to FDA at 1-203-KZT-2572. What other drugs will affect dofetilide? Other drugs may interact with dofetilide, including prescription and epor-yjg-ycsmmqe medicines, vitamins, and herbal products. Tell each [...] to ensure that the information provided by C-nario. ('Multum') is accurate, up-to-date, and complete, but no guarantee is made to that effect. Drug information contained herein may be time sensitive. App[employer] information has been compiled for use by healthcare practitioners and consumers in the [place] and therefore App[employer] does not warrant that uses outside of the [place] are appropriate, unless specifically indicated otherwise. [employer] drug information does not endorse drugs, diagnose patients or recommend therapy. [employer] drug information isan informational resource designed to [...] effective or appropriate for any given patient. [employer] does not assume any responsibility for any aspect of healthcare administered with the aid of information [employer] provides. The information contained herein is not intended to cover all possible uses, directions, precautions, warnings, drug interactions, allergic reactions, or adverse effects. If you have questions about the drugs you are taking, check with your doctor, nurse or pharmacist. Copyright 1298-9543 C-nario. Version: 4.01. Revision Date: 09/09/2015. Education Materials [...] Follow these instructions at home: Medicines Take vycx-tgj-ddpsync and prescription medicines only as told by [...] Document Reviewed: 07/06/2018 Elsevier Patient Education 2020 [employer]. Additional Information VACCINATE! IT SAVES LIVES! Members of the community who have not yet received the COVID-19 vaccine and would like to receive it can visit one of [facility] vaccine clinics. There are many vaccine clinic locations within the [facility]. For locations and available times, please visit https://gettheshot.coronavirus.[place].gov/. It is important to note that some COVID mobile vaccine clinics are held outdoors and may be canceled in rainy or stormy conditions. To learn more about pediatric vaccinations (ages 5-11), we invite you to visit the [facility] webpage. https://www.[facility].org/pages/9261-Matla-Xorewnxoiix-Rbafplcels-Jhyql-Yuk stions.htmlTo learn more about the COVID-19 vaccine, we invite you to visit the CDC website for a list of frequently asked questions.https://www.cdc.gov/coronavirus/2019-ncov/vaccines/faq.html [facility] Patient Portal Access Instructions: Stay connected with your healthcare team and access your personal medical information anytime with the [facility] Patient Portal. Please follow the directions below to create your Locqus account: 1.Access the email account you provided upon registration to the hospital/physician office.2.Look for an invitation email from [facility].3.Open the email and access the invitation link: AcceptInvitation to [facility].4.Fill in the required orr to create your account. To access your account, visit [employer]/Paragonix Technologieshart. Click the blue button labeled Access Patient [...] who you will allowto register on the [facility] Patient Portal for access to your information. You can also access the [facility] Patient Portal on the Larry Anywhere frida. Simply click on Patient Portal and then log into your account. If you would like to receive a full copy of your medical records, please contact the [facility] Medical Records Department by calling [phone], Monday through Monday between 8 a.m. and [...] Call your local pharmacy or go to http://Zubka.24 Media Network/5L7Wb4a to find one close to you.3.Make use of household items: Use cat litter or old coffee grounds to dispose medications if other options arenot available. Mix your drugs with these household products, seal them in an airtight container andthrow it into the garbage. Call [facility]: [phone] to be sure your drugs can be [...] COPY. Signatures Patient Education Materials Atrial Fibrillation, Cqgs-qu-Anyy Medication Leaflets Selina My discharge plan and instructions have been reviewed and explained to me and IWARREN RAY J understand my current condition and have read and understand these discharge instructions. I have received awritten copy of the plan/instructions. If I have questions, I am aware that I should contact my doctor. Patient/Reacher Signature: Date/Time: Relationship to Patient: Witness Name/Signature: Date/Time: [facility] Hospital[facility]jiycfi79-71-4925 Discharge summary Date of Service 06/09/23 Discharge Diagnosis Other persistent atrial fibrillation (I48.19 - ICD-10-CM) Encounter for therapeutic drug level monitoring (Z51.81 - ICD-10-CM) Morbid (severe) obesity due to excess calories (E66.01 - ICD-10-CM) Hypertensive heart disease without heart failure (I11.9 - ICD-10-CM) Gastro-esophageal reflux disease without esophagitis (K21.9 - ICD-10-CM) snf (current) use of anticoagulants (Z79.01 - ICD-10-CM) Shortness of breath (R06.02 - ICD-10-CM) Additional Orders: Ordered: Communication Order (continuous),06/09/23 12:44:00 EST, ok to DC home after 5th dose of tikosyn this evening as long as QT is reviewed 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, Constant order Ordered: Discharge,06/09/23 12:44:00 [...] # 30 cap(s), 2 Refill(s), [facility]acy: [id number], 176, cm, 06/07/23 13:36:00 EST, Height, kg, 06/07/23 13:36:00 EST, Dosing Weight Ordered: Tikosyn 250 mcg oral capsule,Dose : 250 mcg = 1 cap(s), Oral, BID, # 60 cap(s), 2 Refill(s), [facility]acy: [facility] #[id number], 176, cm, 06/07/23 13:36:00 EST, Height, kg, [...] When 07/07/2023 01:00 PM EST Where: [address] [place] [address]- [phone] Follow Up with GIRMA CORREA When Why: PLEASE CALL THIS OFFICE TO SCHEDULE A HOSPITAL FOLLOW UP APPOINTMENT Where: [address] [place], [place] [address]- [phone] Follow Up Appointments No qualifying data available. Follow Up Labs/Studies Discharge Labs No Follow-up Labs Discharge Studies No Follow-up Studies Discharge Diet Discharge Diet - Ordered -- Type of Diet: Cardiac, Sodium limit: 2 gm, 06/09/23 12:44:00 EST Discharge Activity No qualifying data available. 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 (Z79.01 - ICD-10-CM) Shortness of breath (R06.02 - ICD-10-CM) Additional Orders: Ordered: Communication Order (continuous),06/09/23 12:44:00 EST, ok to DC home after 5th dose of tikosyn this evening as long as QT is reviewed 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, Constant order Ordered: Discharge,06/09/23 12:44:00 [...] qDay, # 30 cap(s), 2 Refill(s), [facility]acy: [facility] #[id number], 176, cm, 06/07/23 13:36:00 EST, Height, kg, 06/07/23 13:36:00 EST, Dosing Weight Ordered: Tikosyn 250 mcg oral capsule,Dose : 250 mcg = 1 cap(s), Oral, BID, # 60 cap(s), 2 Refill(s), Pharmacy: [facility] #[id number], 176, cm, 06/07/23 13:36:00 EST, Height, kg, [...] When 07/07/2023 01:00 PM EST Where: [address] [place] [address]- [phone] Follow Up with GIRMA CORREACAR SHIFTER When Why: PLEASE CALL THIS OFFICE TO SCHEDULE A HOSPITAL FOLLOW UP APPOINTMENT Where: [address] [place] [address]- [phone] Follow Up Appointments No qualifying data available. Follow Up Labs/Studies Discharge Labs No Follow-up Labs Discharge Studies No Follow-up Studies Discharge Diet Discharge Diet - Ordered -- Type of Diet: Cardiac, Sodium limit: 2 gm, 06/09/23 12:44:00 EST Discharge Activity No qualifying data available. Condition on Discharge stable Discharge Disposition home Digitally Signed by AMELIA RENAE MD on 06/09/2023 12:53 PM [facility] HospitalMhlmxnqj65-34-5482 NoteSINUS RHYTHM LEFT AXIS DEVIATION LOW VOLTAGE, PRECORDIAL LEADS PROLONGED QT INTERVAL POOR R-WAVE PROGRESSION Electronic Signature: SADE STRAUSS MD 06/09/2023 09:53:23[facility] 01-11-2024 Cardiology Progress note Date of [...] AMELIA RENAE MD on 06/08/2023 03:03 PM [facility] HospitalVpakmyzw99-01-9529 Cardiology Progress note Date of Service 06/08/23 [...] AMELIA RENAE MD on 06/08/2023 03:03 PM [facility] HospitalKyfmnram35-89-9005 NoteSINUS RHYTHM LAD, CONSIDER LEFT ANTERIOR FASCICULAR BLOCK LOW VOLTAGE, PRECORDIAL LEADS BORDERLINE PROLONGED QT INTERVAL Poor R wave progression Electronic Signature: SADE STRAUSS MD 06/09/2023 09:53:37[facility] 01-10-2024 NoteSINUS RHYTHM BORDERLINE IVCD WITH LAD LOW VOLTAGE, PRECORDIAL LEADS CONSIDER ANTERIOR INFARCT Electronic Signature: SADE STRAUSS MD 06/08/2023 09:48:12[facility] 01-10-2024 History and physical note Date [...] 107 ms, QT interval approximately 450 ms. IL interval 184 ms. Renal function, electrolytes pending. [...] AMELIA RENAE MD on 06/07/2023 04:29 PM [facility] HospitalFtthihxj53-20-7831 NoteSINUS RHYTHM LAD, CONSIDER LEFT ANTERIOR FASCICULAR BLOCK LOW VOLTAGE, PRECORDIAL LEADS Electronic Signature: SADE STRAUSS MD 06/08/2023 09:47:58[facility] 01-10-2024 History and physical note Date [...] 107 ms, QT interval approximately 450 ms. IL interval 184 ms. Renal function , electrolytes pending. Did have prior cardioversion on [...] AMELIA RENAE MD on 06/07/2023 04:29 PM [facility] [id number] Evaluation + Plan noteExtracted from: Title:History and Physical Author:AMLEIA RENAE MD Date:06/07/23 Shortness of breath Persistent [...] Appointment Date:06/20/2023 02:30:00 PM Scheduled Provider:GIRMA CORREA Location:[facility] Appointment Type:PC OV Appointment Date:07/17/2023 03:15:00 PM Scheduled Provider:ZHOU ESPINOSA Location:[facility] Appointment Type:CV OV Future Scheduled Tests Laboratory* Basic Metabolic Panel 04/01/23 * A1C Hemoglobin 06/09/23 * Lipid Profile 06/09/23 * Complete Metabolic Panel 06/09/23 [facility] 01-10-2024 NoteSINUS RHYTHM MARKEDLY POSTERIOR QRS AXIS LOW VOLTAGE, PRECORDIAL LEADS BORDERLINE PROLONGED QT INTERVAL Electronic Signature: SADE STRAUSS MD 06/08/2023 09:47:38[facility] 12-08-2023 Hospital Discharge instructions Patient Education [...] in vomit, stools (black or red color) 1706-3940 [employer]. [address] [place] [address]. All rights reserved. This information is not [...] fainting Blood in your stool or urine 3119-9105 [employer]. [address] [place] [address]. All rights reserved. This information is not [...] will help ease pain. You may use xega-dec-ykziyxb pain medicine such as acetaminophen or ibuprofen [...] suddenly or lasts more than an hour 5149-5564 [employer]. [address] [place] [address]. All rights reserved. This information is not intended as a substitute for professional medical care. Always follow yourhealthcare professional's instructions. Follow Up Care 05/05/2023 17:11:14 With:GIRMA CORREA Address: [address] [facility] [place] [address] [phone] Business (1) When:5-7 days Comments:Follow-up as needed if symptoms or not improving.Limit activity as tolerated.Ice/cold compresses topainful areas.Use Tylenol, Advil or Aleve for pain as needed.Use [place] as prescribed for severe pain as needed.Take 10 deep breaths on the incentive stridor every hour while awake for the next week as advised.Return to the ED if symptoms worsen. [facility] 12-08-2023 Note Discharge Instructions Thank you for allowing [facility] to assist you with your healthcare needs. [...] or Aleve for pain as needed. Use [place] as prescribed for severe pain as needed. Take 10 deep breaths on the incentive stridor every hour while awake for the next week as advised. Return to the ED if symptoms worsen. Where: [address] [facility] [place] [address] [phone] Business (1) Allergies NKA Medications Please ask your primary doctor or pharmacist before taking any other medication not listed, including over the counter drugs, herbal medications, vitamins and or supplements as they may interact withyour home medications. What How Much When Why Instructions Last Dose New acetaminophen-hydrocodone ([place] 325- 5 mg oral tablet) 1 tab(s) [...] cancer screening As directed by provider at [facility]. Unchanged rivaroxaban (Xarelto 20 mg [...] SEET a MIN [place] fen and shelley droe KOE done) Lortab Elixir, Verdrocet What is [...] may report side effects to FDA at [phone]-NZM-[phone]. What other drugs will affect acetaminophen and [...] affect acetaminophen and hydrocodone, including prescription and zloe-qkp-djtrulf medicines, vitamins, and herbal products. Not all [...] to ensure that the information provided by C[employer]. ('Mult[employer]') is accurate, up-to-date, and complete, but no guarantee is made to that effect. Drug information contained herein may be time sensitive. [employer] information has been compiled for use by healthcare practitioners and consumers in the [place] and therefore [employer] does not warrant that uses outside of the [place] are appropriate, unless specifically indicated otherwise. [employer] drug information does not endorse drugs, diagnose patients or recommend therapy. [employer] drug information isan informational resource designed to [...] appropriate for any given patient. [facility] does not assume any responsibility for any aspect of healthcare administered with the aid of information [facility] provides. The information contained herein is not intended to cover all possible uses, directions, precautions, warnings, drug interactions, allergic reactions, or adverse effects. If you have questions about the drugs you are taking, check with your doctor, nurse or pharmacist. Copyright 1924-2790 [facility] LaTherm. Version: 19.. Revision Date: 01/16/2023. Education Materials [...] in vomit, stools (black or red color) 8004-2372 [employer]. [address] [place] [address]. All rights reserved. This information is not [...] fainting Blood in your stool or urine 6535-9907 [employer]. [address] [place] [address]. All rights reserved. This information is not [...] will help ease pain. You may use scjp-njv-yvrltwa pain medicine such as acetaminophen or ibuprofen [...] suddenly or lasts more than an hour 2472-8207 [employer]. [address] [place] [address]. All rights reserved. This information is not intended as a substitute for professional medical care. Always follow yourhealthcare professional's instructions. Additional Information VACCINATE! IT SAVES LIVES! Members of the community who have not yet received the COVID-19 vaccine and would like to receive it can visit one of [facility] vaccine clinics. There are many vaccine clinic locations within the [facility]. For locations and available times, please visit www.gettheshot.coronavirus.[place].gov/. It is important to note that some COVID mobile vaccine clinics are held outdoors and may be canceled in rainy or stormy conditions. To learn more about pediatric vaccinations (ages 5-11), we invite you to visit the [facility] webpage. https://www.akronGuang[employer] Telecoms.org/pages/2241-Iqopq-Xgtnvwpkhof-Uqgjaczszo-Godys-Sml stions.htmlTo learn more about the COVID-19 vaccine, we invite you to visit the CDC website for a list of frequently asked questions. https://www.cdc.gov/coronavirus/2019-ncov/vaccines/faq.html [facility] Patient Portal Access Instructions: Stay connected with your healthcare team and access your personal medical information anytime with the LarryeriQoo Patient Portal. If you would like a full copy of your medical records please contact the [facility] Medical Records Department Monday through Monday between 8a.m. and 4:30p.m. Please follow the directions below to access the portal: 1.Access the email account you provided upon registration to the [facility].2.Look for an invitation email from [facility].3.Open the email and access the invitation link: Accept Invitation to LarryeriQoo4.Fill in the required orr to create your account. Sign into www.Cert[employer] with your username and password that you [...] you will allow to register on the Loc[facility] Patient Portal for access to your information. You can also access the [facility] Patient Portal on the Five9. Simply click on Health Records under Famigo and then click on the Health Diagnostic Laboratory logo. HOW TO SAFELY DISPOSE OF PRESCRIPTION [...] Call your local pharmacy or go to [email or web address] Media [email or web address] to find one close to you.3.Make use of household items: Use cat litter or old coffee grounds to dispose medications if other options arenot available. Mix your drugs with these household products, seal them in an airtight container andthrow it into the garbage. Call [facility]: [phone] to be sure your drugs can be [...] aware that I should contact my doctor. Patient/Reacher Signature: Date/Time: Relationship to Patient: Witness Name/Signature: Date/Time: [facility]12-08-2023 Note ORIGINAL EXAMINATION: 2 XRAY VIEWS OF THE RIGHT RIBS 05/05/2023 7:54 pm COMPARISON: None. HISTORY: ORDERING SYSTEM PROVIDED HISTORY: Reason for Exam: pain FINDINGS: No visible rib fracture. IMPRESSION: No visible rib fracture. Interpreted by: Trace Clark Preliminary Report By: Trace Clark Electronically signed By Trace Clark Dictated Date: 05/05/2023 9:07:05 PM Prelim Date: 05/05/2023 9:08:30 PM Sign Date: 05/05/2023 9:08:30 PM Ordering Provider: DEMI [facility]12-08-2023 Note ORIGINAL EXAMINATION: ONE XRAY VIEW OF [...] resident's findings and interpretation. Interpreted by: Trace Clark Preliminary Report By: Lesia Flannery Electronically signed By Trace Clark Dictated Date: 05/05/2023 9:06:00 PM Prelim Date: 05/05/2023 9:09:28 PM Sign Date: 05/05/2023 9:17:04 PM Ordering Provider: DEMI [facility]11-06-2023 Note * Exam Date Time Procedure Performing Provider Status 04/03/23 9:43 AM Echocardiogram, Adult (AOH) Auth (Verified) [facility] 07-28-2023 Hospital Discharge instructions Patient Education [...] Document Reviewed: 05/16/2014 ExitCare Patient Information 2015 [employer]. This information is not intended to replace [...] before eating solid foods. General instructions Take gagc-tgv-obqcxzp and prescription medicines only as told by [...] 09/04/2016 Document Revised: 08/13/2018 Document Reviewed: 09/04/2016 [employer] Patient Education 2020 [employer]. Follow Up Care 12/07/2022 09:52:07 With:ZHOU ESPINOSA Address: [address] [facility] [address] [place] [address] [phone] When: Unknown Comments:Follow-up as scheduled [facility] 07-28-2023 Note Discharge Instructions Thank you for allowing [facility] to assist you with your healthcare needs. The following is importantdischarge information regarding your hospital visit. Your Care Team GIRMA CORREA Your Diagnosis AF (atrial fibrillation) What to do next Scheduled Follow-Up Appointments Appointment Type When With Where Contact InformationPC OV 02/07/2023 02:30 PM EDT GIRMA CORREA [facility] Follow Up Appointments Follow Up with ZHOU ESPINOSA When Why: Follow-up as scheduled Where: [address] [facility] [address] [place] [phone] Allergies NKA Medications Please ask your primary doctor or pharmacist before taking any other medication not listed, including over the counter drugs, herbal medications, vitamins and or supplements as they may interact withyour home medications. What How Much When Instructions Last Dose New losartan (losartan 100 mg oral tablet) 1 tab(s) by mouth Once a day Refills: 6 Pickup at [id number] Changed metoprolol (Toprol-XL 50 mg oral tablet, extended release) 1 tab(s) by mouth Two (2) times a day Pickup at [id number] Unchanged allopurinol (allopurinol 100 mg oral tablet) [...] Duration: 14 Days Pharmacy Information [facility][id number]: [address], [place] [phone] What How Much When Comments Stop Taking [...] Document Reviewed: 05/16/2014 ExitCare Patient Information 2015 [employer]. This information is not intended to replace [...] before eating solid foods. General instructions Take edhi-nlt-chbrerw and prescription medicines only as told by [...] 09/04/2016 Document Revised: 08/13/2018 Document Reviewed: 09/04/2016 [employer] Patient Education 2020 [employer]. Additional Information VACCINATE! IT SAVES LIVES! Members of the community who have not yet received the COVID-19 vaccine and would like to receive it can visit one of [facility] vaccine clinics. There are many vaccine clinic locations within the [facility]. For locations and available times, please visit https://[email or web address].[place].gov/. It is important to note that some COVID mobile vaccine clinics are held outdoors and may be canceled in rainy or stormy conditions. To learn more about pediatric vaccinations (ages 5-11), we invite you to visit the [facility] webpage. https://www.[facility].org/pages/5261-Rhbdb-Zmekhmslsng-Zynqqzfdcv-Tfxoo-Ntn stions.htmlTo learn more about the COVID-19 vaccine, we invite you to visit the CDC website for a list of frequently asked questions.https://www.cdc.gov/coronavirus/2019-ncov/vaccines/faq.html [facility] Patient Portal Access Instructions: Stay connected with your healthcare team and access your personal medical information anytime with the Larry[facility] Patient Portal. Please follow the directions below to create your LarryeriQoo account: 1.Access the email account you provided upon registration to the hospital/physician office.2.Look for an invitation email from [facility].3.Open the email and access the invitation link: AcceptInvitation to [facility].4.Fill in the required orr to create your account. To access your account, visit [email or web address]. Click the blue button labeled Access Patient [...] who you will allowto register on the [facility] Patient Portal for access to your information. You can also access the [facility] HotChart Patient Portal on the [facility] Anywhere frida. Simply click on Patient Portal and then log into your account. If you would like to receive a full copy of your medical records, please contact the [facility] Medical Records Department by calling [phone], Monday through Monday between 8 a.m. and [...] Call your local pharmacy or go to [email or web address] Media [email or web address] to find one close to you.3.Make use of household items: Use cat litter or old coffee grounds to dispose medications if other options arenot available. Mix your drugs with these household products, seal them in an airtight container andthrow it into the garbage. Call [facility]: [phone] to be sure your drugs can be [...] and explained to me and I,CARLOS ALBERTO HOROWITZ understand my current condition and have read and understand these discharge instructions. I have received awritten copy of the plan/instructions. If I have questions, I am aware that I should contact my doctor. Patient/Reacher Signature: Date/Time: Relationship to Patient: Witness Name/Signature: Date/Time: [facility]07-28-2023 Anesthesiology Consult note Patient: CARLOS ALBERTO HOROWITZ Age: 52 years Sex: Male : 1970 [...] by BRAULIO WRIGHT on 12/23/2022 07:23 AM [facility]07-28-2023 Anesthesiology Consult note Patient: CARLOS ALBERTO HOROWITZ Age: 52 years Sex: Male : 1970 [...] Problem list: Medical Anxiety / SNOMED CT 01224129 / Confirmed Atopic dermatitis / SNOMED CT 27109133 / Confirmed BMI 45.0-49.9, adult / SNOMED CT 6153152682 / Confirmed Diabetes mellitus / SNOMED CT 631845982 / Confirmed Hypertension / SNOMED CT 5480462258 / Confirmed Insomnia / SNOMED CT 815950158 / Confirmed Morbid obesity / SNOMED CT 061437788 / Confirmed Chewing tobacco nicotine dependence / SNOMED CT 68152201 / Confirmed Obstructive sleep apnea / SNOMED CT 583805966 / Confirmed Screening for ischemic heart disease / SNOMED CT 215357101 / Confirmed Persistent atrial fibrillation / SNOMED CT 9882452402 / Confirmed Prediabetes / SNOMED CT 3727710047 / Confirmed, Active Problems (16) Anxiety Atopic [...] History: History is unknown. Procedure history: Elbow ([id number]). 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 Physical Examination Vital Signs 12/23/2022 6:34 EDT Temperature Temporal Artery 35.3 DegC Peripheral Pulse Rate 85 bpm Respiratory Rate 20 br/min Systolic Blood Pressure Non-Invasive 103 mmHg Diastolic Blood Pressure Non-Invasive 76 mmHg Vital Signs(last 24 hrs) Last Charted Resp Rate 20 br/min (DEC 23 06:34) YQM491 mmHg (DEC 23 06:34) DBP76 mmHg (DEC 23 06:34) Measurements from flowsheet : Measurements 12/23/2022 6:37 EDT Height 175.3 cm [place] Body Weight 70.74 kg 12/23/2022 6:34 EDT Height 175.3 cm Admission Weight 144 kg [place] Body Weight 70.74 kg Admission Body Mass [...] Surgeon SN - CAt - Role Performed Die Designer 1 SN - CAt - Role Performed RPG PROGRAMMER 12/23/2022 6:49 EDT Wrist Left 12/23/2022 20 [...] Person #1 We May Share YAW OSPINA [phone] Designated Person #1 Relationship Sibling Height 175.3 cm [place] Body Weight 70.74 kg Status N/A Sensory [...] evident Teaching Method Explanation Preferred Spoken Language Wallisian Preferred Written Language Wallisian Information Given by Patient Patient's Current Physicians Patient's Current Physicians Discharge To, Anticipated Home independently Prev Test Positive/Diagnosis w/COVID-19 No Current Quarantine/Isolated any Illness No Any Contact with Sick Animals/Birds No Traveled Anywhere in Last 30 Days No N/A Personal Devices, Patient Valuables None Admission Note-Nursing Procedure/Therapy Intake 12/23/2022 6:34 EDT Height 175.3 cm Admission Weight 144 kg [place] Body Weight 70.74 kg Admission Body Mass [...] Ordered (In Progress) . Assessment and Plan [place] Society of Anesthesiologists (ASA) physical status classification: Class III. Anesthetic Preoperative Plan Anesthetic technique: MAC. Informed consent: signed by patient. Digitally Signed by BRAULIO WRIGHT on 12/23/2022 07:21 AM [facility]06-01-2023 Hospital Discharge instructions Patient Education 10/27/2022 [...] Swelling, pain or redness in one leg 2322-4744 [employer]. [address] [place] [address], [place] [address]. All rights reserved. This information is not [...] very fast heart rate Loss of consciousness 0355-6584 [employer]. [address] [place] [address]. All rights reserved. This information is not intended as a substitute for professional medical care. Always follow yourhealthcare professional's instructions. Follow Up Care 10/27/2022 05:02:35 With:GIRMA CORREA Address: [address] [place], [place] [phone] Business (1) When:2-4 days Comments:Follow close with your doctor, continue medications, return if any worsening or concerning symptoms. [facility] 06-01-2023 Note Discharge Instructions Thank you for allowing [facility] to assist you with your healthcare needs. [...] if any worsening or concerning symptoms. Where: [place] [phone] Business (1) Allergies NKA Medications Please ask [...] Swelling, pain or redness in one leg 3469-7533 [employer]. [address] [place] [address]. All rights reserved. This information is not [...] very fast heart rate Loss of consciousness 9642-5004 [employer]. [address] [place] [address]. All rights reserved. This information is not intended as a substitute for professional medical care. Always follow yourhealthcare professional's instructions. Additional Information VACCINATE! IT SAVES LIVES! Members of the community who have not yet received the COVID-19 vaccine and would like to receive it can visit one of [facility] vaccine clinics. There are many vaccine clinic locations within the [facility]. For locations and available times, please visit www.[email or web address].[place].gov/. It is important to note that some COVID mobile vaccine clinics are held outdoors and may be canceled in rainy or stormy conditions. To learn more about pediatric vaccinations (ages 5-11), we invite you to visit the [facility] webpage. https://www.[facility].org/pages/8389-Fsybj-Yifyhpcclot-Qresexwoki-Tlfid-Zmc stions.htmlTo learn more about the COVID-19 vaccine, we invite you to visit the CDC website for a list of frequently asked questions. https://www.cdc.gov/coronavirus/2019-ncov/vaccines/faq.html [facility] Patient Portal Access Instructions: Stay connected with your healthcare team and access your personal medical information anytime with the Larry[facility] Patient Portal. If you would like a full copy of your medical records please contact the [facility] Medical Records Department Monday through Monday between 8a.m. and 4:30p.m. Please follow the directions below to access the portal: 1.Access the email account you provided upon registration to the hospital.2.Look for an invitation email from [facility].3.Open the email and access the invitation link: Accept Invitation to [facility]Qoo4.Fill in the required orr to create your account. Sign into [email or web address] Group with your username and password that you [...] you will allow to register on the [facility] Patient Portal for access to your information. You can also access the [facility] Patient Portal on the tapviva frida. Simply click on Health Records under Famigo and then click on the Health Diagnostic Laboratory logo. HOW TO SAFELY DISPOSE OF PRESCRIPTION [...] Call your local pharmacy or go to [email or web address] Media [email or web address] to find one close to you.3.Make use of household items: Use cat litter or old coffee grounds to dispose medications if other options arenot available. Mix your drugs with these household products, seal them in an airtight container andthrow it into the garbage. Call [facility]: [phone] to be sure your drugs can be [...] aware that I should contact my doctor. Patient/Reacher Signature: Date/Time: Relationship to Patient: Witness Name/Signature: Date/Time: [facility]06-01-2023 Note ORIGINAL EXAMINATION: ONE XRAY VIEW [...] Date: 10/27/2022 6:14:45 AM Ordering Provider: OLLIE [facility]06-01-2023 Note ORIGINAL EXAMINATION: ONE XRAY VIEW [...] Date: 10/27/2022 6:14:45 AM Ordering Provider[facility] Discharge instructions Patient Education 10/25/2022 [...] your body to your neck and face. 6661-8901 [employer]. [address] [place] [address], [place] [address]. All rights reserved. This information is not intended as a substitute for professional medical care. Always follow [facility] hospital[facility] professional's instructions. 10/25/2022 01:25:36 Atrial Fibrillation [...] vision Extreme drowsiness, confusion, dizziness, or fainting 9386-2074 MySocialCloud.com. [address] [place] [address]. All rights reserved. This information is not [...] Swelling, pain or redness in one leg 6228-4732 [employer]. [address] [place] [address], [place] [address]. All rights reserved. This information is not [...] veins, fluid leaks out into the tissues. [place] then causes that fluid to move to [...] away Feeling much more tired than usual 8004-8432 [employer]. [address] [place] [address], [place] [address]. All rights reserved. This information is not intended as a substitute for professional medical care. Always follow yourhealthcare professional's instructions. Follow Up Care 10/24/2022 23:09:33 With:Call Physician Referral Address:Unknown When:2-4 days Comments:Call for referral to establish a primary care doctor you can see on a regular basis. With:SADE STRAUSS Address: [address] [facility] [address] [place] [phone] Business (1) When:2-4 days Comments:Schedule an appointment to establish a syrup maker you can see on a regular basis.Double your doseof Lasix from 20 mg once a day to 20 mg twice a day.Continue all other routine medications including the ones you were recently prescribed from [place].Use potassium supplement and sleep aid (trazodone) as prescribed.Return to the ED if symptoms worsen. [facility] 05-30-2023 Note Discharge Instructions Thank you for allowing [facility] to assist you with your healthcare needs. [...] Why: Schedule an appointment to establish a syrup maker you can see on a regular basis. Double your dose of Lasix from 20 mg once a day to 20 mg twice a day. Continue all other routine medications including the ones you were recently prescribed from [place]. Use potassium supplement and sleep aid (trazodone) as prescribed. Return to the ED if symptoms worsen. Where: [address] [facility] [address] [place] [address] [phone] Business (1) Allergies NKA Medications Please ask [...] may report side effects to FDA at 1-415-JBK-5499. What other drugs will affect potassium chloride? Tell your doctor about all your other medicines, especially: medicine to prevent organ transplant rejection; a diuretic or 'water pill'; or heart or blood pressure medication. This list is not complete. Other drugs may affect potassium chloride, including prescription and hosi-eeu-szxrlkx medicines, vitamins, and herbal products. Not all [...] to ensure that the information provided by C-nario. ('[employer]') is accurate, up-to-date, and complete, but no guarantee is made to that effect. Drug information contained herein may be time sensitive. [employer] information has been compiled for use by healthcare practitioners and consumers in the [place] and therefore [employer] does not warrant that uses outside of the [place] are appropriate, unless specifically indicated otherwise. [employer] drug information does not endorse drugs, diagnose patients or recommend therapy. [employer] drug information isan informational resource designed to [...] effective or appropriate for any given patient. [employer] does not assume any responsibility for any aspect of healthcare administered with the aid of information [employer] provides. The information contained herein is not intended to cover all possible uses, directions, precautions, warnings, drug interactions, allergic reactions, or adverse effects. If you have questions about the drugs you are taking, check with your doctor, nurse or pharmacist. Copyright 7908-7040 [facility]. Version: 14.. Revision Date: 10/24/2019. trazodone (TRAZ oh stevenson) Kailarosmery What is the most important information I [...] may report side effects to FDA at 7-162-UUY-3545. What other drugs will affect trazodone? Using trazodone with other drugs that make you drowsy can worsen this effect. Ask your doctor before using opioid medication, a sleeping pill, a muscle relaxer, or medicine for anxiety or seizures. Tell your doctor about all your current medicines. Many drugs can affect trazodone, especially: any other antidepressants; phenytoin; [place]'s wort; tramadol; a diuretic or 'water pill'; medicine to treat anxiety, mood disorders, or mental illness such as schizophrenia; a blood thinner--warfarin, Coumadin, Jantoven; or migraine headache medicine--sumatriptan, Imitrex, Maxalt, Treximet, and others. This list is not complete and many other drugs may affect trazodone. This includes prescription yrumybg-zyk-tygfglm medicines, vitamins, and herbal products. Not all [...] to ensure that the information provided by C-nario. ('[employer]') is accurate, up-to-date, and complete, but no guarantee is made to that effect. Drug information contained herein may be time sensitive. [employer] information has been compiled for use by healthcare practitioners and consumers in the [place] and therefore [employer] does not warrant that uses outside of the [place] are appropriate, unless specifically indicated otherwise. [employer] drug information does not endorse drugs, diagnose patients or recommend therapy. [employer] drug information isan informational resource designed to [...] effective or appropriate for any given patient. [employer] does not assume any responsibility for any aspect of healthcare administered with the aid of information [employer] provides. The information contained herein is not intended to cover all possible uses, directions, precautions, warnings, drug interactions, allergic reactions, or adverse effects. If you have questions about the drugs you are taking, check with your doctor, nurse or pharmacist. Copyright 4566-7635 [employer]. Version: 10.04. Revision Date: 11/09/2020. Education Materials [...] your body to your neck and face. 6717-5904 [employer]. [address] [place] [address], [place] [address]. All rights reserved. This information is not [...] vision Extreme drowsiness, confusion, dizziness, or fainting 9498-2720 [employer]. [address] [place] [address]. All rights reserved. This information is not [...] Swelling, pain or redness in one leg 9612-6584 [employer]. [address] [place] [address], [place] [address]. All rights reserved. This information is not [...] veins, fluid leaks out into the tissues. [place] then causes that fluid to move to [...] away Feeling much more tired than usual 6657-7123 [employer]. [address] [place] [address]. All rights reserved. This information is not intended as a substitute for professional medical care. Always follow yourhealthcare professional's instructions. Additional Information VACCINATE! IT SAVES LIVES! Members of the community who have not yet received the COVID-19 vaccine and would like to receive it can visit one of [facility] vaccine clinics. There are many vaccine clinic locations within the [facility]. For locations and available times, please visit www.gettheshot.coronavirus.[place].gov/. It is important to note that some COVID mobile vaccine clinics are held outdoors and may be canceled in rainy or stormy conditions. To learn more about pediatric vaccinations (ages 5-11), we invite you to visit the [facility] webpage. https://www.[employer].org/pages/5033-Qhpge-Ohodqyjeaqi-Mtobjpufgw-Hhrpi-Uuv stions.htmlTo learn more about the COVID-19 vaccine, we invite you to visit the CDC website for a list of frequently asked questions. https://www.cdc.gov/coronavirus/2019-ncov/vaccines/faq.html [facility] Patient Portal Access Instructions: Stay connected with your healthcare team and access your personal medical information anytime with the [facility] Patient Portal. If you would like a full copy of your medical records please contact the [facility] Medical Records Department Monday through Monday between 8a.m. and 4:30p.m. Please follow the directions below to access the portal: 1.Access the email account you provided upon registration to the [facility].2.Look for an invitation email from [facility].3.Open the email and access the invitation link: Accept Invitation to [facility]4.Fill in the required orr to create your account. Sign into [email or web address].[employer] with your username and password that you [...] you will allow to register on the [facility] Patient Portal for access to your information. You can also access the [facility] Patient Portal on the tapviva frida. Simply click on Health Records under Famigo and then click on the [facility] logo. HOW TO SAFELY DISPOSE OF PRESCRIPTION [...] Call your local pharmacy or go to [email or web address] to find one close to you.3.Make use of household items: Use cat litter or old coffee grounds to dispose medications if other options arenot available. Mix your drugs with these household products, seal them in an airtight container andthrow it into the garbage. Call [facility]: [phone] to be sure your drugs can be [...] and explained to me and I,CARLOS ALBERTO HORWOITZ understand my current condition and have read and understand these discharge instructions. I have received awritten copy of the plan/instructions. If I have questions, I am aware that I should contact my doctor. Patient/Reacher Signature: Date/Time: Relationship to Patient: Witness Name/Signature: Date/Time: [facility]05-30-2023 Note ORIGINAL EXAMINATION: CTA OF THE [...] aortic dissection. Lungs/pleura: Small bilateral pleural effusions gold leaf layer dependently. There is more fluid on [...] Sign Date: 10/25/2022 1:09:48 AM Ordering Provider: [facility]05-30-2023 Note ORIGINAL EXAMINATION: CTA OF THE [...] aortic dissection. Lungs/pleura: Small bilateral pleural effusions gold leaf layer dependently. There is more fluid on [...] Sign Date: 10/25/2022 1:09:48 AM Ordering Provider: [facility]05-29-2023 Note ORIGINAL EXAMINATION: ONE XRAY VIEW OF [...] Sign Date: 10/24/2022 11:56:09 PM Ordering Provider: [facility]05-29-2023 Note ORIGINAL EXAMINATION: ONE XRAY VIEW OF [...] Sign Date: 10/24/2022 11:56:09 PM Ordering Provider: [facility]05-28-[address] Clemens [facility] October 23, 2022 10:40am Note Date/Time October 23, 2022 6:48a m [facility] Medical Records Department [address] [place] [address] Emergency Department Summary 10/23/22 MR#: [id number] Acct: [id number] Name: CARLOS ALBERTO HOROWITZ Jr. Rep #:[id number] : 1970 52 From: Jamele Brown DO PCP: ZACARIAS HOYOS Status:REG ER Location: ED HPI History of [...] gets short of breath. 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 Barr out of [facility]. [facility] Medical History (Updated 10/23/22 [...] IV and his heart rate is now aboin711. CBC shows no leukocytosis. Hemoglobin macular stable. [...] % (Auto) 67.9 Lymph % (Auto) 19.0 [place] % (Auto) 9.6 Eos % (Auto) 2.4 [...] your Primary Care Provider. Call [facility] ([phone]) or report to the closest Emergency Room. Call 911 if necessary. 10/23/22 07 <Electronically signed by Jameel Brown DO> Cosigner Signature (if applicable): CC: ZACARIAS HOYOS ~ Signed ADDENDUM by Dr. Jose A Clemens MD on 10/23/22 at 0759 Patient care was transferred to id at 0710. Patient presented because of palpitations discomfort right side of his chest with shortness of breath. Patient does have history of congestive heart failure and atrial fibrillation. He has relocated from [place]. He does not have a local syrup maker. Patient has not taken his Xarelto for [...] MD> Cosigner Signature (if applicable): cc: ZACARIAS HOYOS ~* Signed ADDENDUM by Dr. Jose A [...] MD> Cosigner Signature (if applicable): cc: ZACARIAS HOYOS ~* Signed [facility] Work Phone: [phone] 306-745502-17-2023 Hospital Discharge instructions Patient Education 07/15/2022 21:17:24 [...] temperature. Use toothpaste made for sensitive teeth. [place] gently up and down instead of sideways. Brushing sideways can wear away root surfaces if they are exposed. If your tooth is chipped or cracked, or if there is a large open cavity, put oil of cloves directlyon the tooth to relieve pain. You can buy oil of cloves at drugsNSCes. Some pharmacies carry an rybi-dsy-wuhdurm toothache kit. This contains a paste that you can put on the exposed tooth to make it less sensitive. Put a cold pack on your jaw over the sore area to help reduce pain. You may use visi-dws-qdiiqit medicine to ease pain, unless your doctor [...] healthcare provider Pus drains from the tooth 6810-5906 [employer]. [address] [place] [address], [place] [address]. All rights reserved. This information is not intended as a substitute for professional medical care. Always follow yourhealthcare professional's instructions. Follow Up Care 07/15/2022 20:40:26 With:Dental Referral List Address: When:2-4 days [facility] 02-17-2023 Note Discharge Instructions Thank you for allowing [facility] to assist you with your healthcare needs. [...] When Why Instructions Last Dose New acetaminophen-hydrocodone ([place] 325- 5 mg oral tablet) 1 tab(s) [...] temperature. Use toothpaste made for sensitive teeth. [place] gently up and down instead of sideways. Brushing sideways can wear away root surfaces if they are exposed. If your tooth is chipped or cracked, or if there is a large open cavity, put oil of cloves directlyon the tooth to relieve pain. You can buy oil of cloves at drugstores. Some pharmacies carry an sgxu-sru-sougilq toothache kit. This contains a paste that you can put on the exposed tooth to make it less sensitive. Put a cold pack on your jaw over the sore area to help reduce pain. You may use lnmn-gxe-rplhhgw medicine to ease pain, unless your doctor [...] healthcare provider Pus drains from the tooth [phone] [employer]. [address] [place] [address]. All rights reserved. This information is not intended as a substitute for professional medical care. Always follow yourhealthcare professional's instructions. Additional Information VACCINATE! IT SAVES LIVES! Members of the community who have not yet received the COVID-19 vaccine and would like to receive it can visit one of [facility] vaccine clinics. There are many vaccine clinic locations within the [facility]. For locations and available times, please visit www.gettheshot.coronavirus.[place].gov/. It is important to note that some COVID mobile vaccine clinics are held outdoors and may be canceled in rainy or stormy conditions. To learn more about pediatric vaccinations (ages 5-11), we invite you to visit the [facility] webpage. https://www.[facility].org/pages/5307-Gqjhg-Uvnwjmfpzhq-Glxibotwnl-Wmvtc-Ehw stions.htmlTo learn more about the COVID-19 vaccine, we invite you to visit the CDC website for a list of frequently asked questions. https://www.cdc.gov/coronavirus/2019-ncov/vaccines/faq.html [facility] Patient Portal Access Instructions: Stay connected with your healthcare team and access your personal medical information anytime with the [facility] Patient Portal. If you would like a full copy of your medical records please contact the [facility] Medical Records Department Monday through Monday between 8a.m. and 4:30p.m. Please follow the directions below to access the portal: 1.Access the email account you provided upon registration to the hospital.2.Look for an invitation email from [facility].3.Open the email and access the invitation link: Accept Invitation to [facility]4.Fill in the required orr to create your account. Sign into [email or web address].[employer] with your username and password that you [...] you will allow to register on the [facility] Patient Portal for access to your information. You can also access the [facility] Patient Portal on the tapviva frida. Simply click on Health Records under Famigo and then click on the Larry logo. [...] Call your local pharmacy or go to [email or web address]/9I6Et6c to find one close to you.3.Make use of household items: Use cat litter or old coffee grounds to dispose medications if other options arenot available. Mix your drugs with these household products, seal them in an airtight container andthrow it into the garbage. Call [facility]: [phone] to be sure your drugs can be [...] aware that I should contact my doctor. Patient/Reacher Signature: Date/Time: Relationship to Patient: Witness Name/Signature: Date/Time: [facility]02-13-2023 Hospital Discharge instructions Patient Education 07/11/2022 [...] alternate ice and heat. You may use lozb-tpe-zuwqbzm pain medicine to control pain, unless another [...] hand becomes cold, blue, numb, or tingly 1796-4301 [employer]. [address] [place] [address], [place] [address]. All rights reserved. This information is not intended as a substitute for professional medical care. Always follow yourhealthcare professional's instructions. Follow Up Care 07/11/2022 08:20:34 With:DO MELSISA COHN DO Address: [address] [place] [phone] When:3-7 days With:Go to emergency room if symptoms worsen Address:Unknown When:2-4 days [facility] 02-13-2023 Note Discharge Instructions Thank you for allowing [facility] to assist you with your healthcare needs. [...] COHN DO When Within 3-7 days Where: [address] [place] [address] [address] [place] [address] Follow Up with Go to [...] alternate ice and heat. You may use zsiv-uri-dfyqvrr pain medicine to control pain, unless another [...] hand becomes cold, blue, numb, or tingly 1033-9066 [employer]. [address] [place] [address]. All rights reserved. This information is not intended as a substitute for professional medical care. Always follow yourhealthcare professional's instructions. Additional Information VACCINATE! IT SAVES LIVES! Members of the community who have not yet received the COVID-19 vaccine and would like to receive it can visit one of [facility] vaccine clinics. There are many vaccine clinic locations within the [facility]. For locations and available times, please visit www.gettheshot.coronavirus.[place].org. It is important to note that some COVID mobile vaccine clinics are held outdoors and may be canceled in rainy orstormy conditions. To learn more about pediatric vaccinations (ages 5-11), we invite you to visit the [facility] webpage. https://www.[facility].org/pages/3612-Tzhsn-Kzsiajhxbiy-Qyozimhibu-Pofwp-Lin stions.htmlTo learn more about the COVID-19 vaccine, we invite you to visit the [facility] website for a list of frequently asked questions. https://[place].[facility]/assets/Hkijrxkp-wyu-Aiskjwpa/cwmzv-Lbfttor-Sqauotnsqc _Asked-Questions.pdf [facility] Access Instructions: Stay connected with your healthcare team and access your personal medical information anytime with the [facility] HotChart Patient Portal. If you would like a full copy of your medical records please contact the [facility] Medical Records Department Monday through Monday between 8a.m. and 4:30p.m. Please follow the directions below to access the portal: 1.Access the email account you provided upon registration to the [facility].2.Look for an invitation email from [facility].3.Open the email and access the invitation link: Accept Invitation to Loc[facility]us4.Fill in the required orr to create your account. Sign into [email or web address].[employer] with your username and password that you [...] you will allow to register on the [facility] Patient Portal for access to your information. You can also access the [facility] Patient Portal on the Five9. Simply click on Health Records under Famigo and then click on the [facility] logo. HOW TO SAFELY DISPOSE OF PRESCRIPTION [...] Call your local pharmacy or go to http://[email or web address]/8U2Nn2v to find one close to you.3.Make use of household items: Use cat litter or old coffee grounds to dispose medications if other options arenot available. Mix your drugs with these household products, seal them in an airtight container andthrow it into the garbage. Call [facility]: [phone] to be sure your drugs can be [...] and explained to me and I,CARLOS ALBERTO HOROWITZ understand my current condition and have read and understand these discharge instructions. I have received awritten copy of the plan/instructions. If I have questions, I am aware that I should contact my doctor. Patient/Reacher Signature: Date/Time: Relationship to Patient: Witness Name/Signature: Date/Time: [facility]02-13-2023 Note ORIGINAL EXAMINATION: THREE XRAY VIEWS [...] Sign Date: 07/11/2022 8:51:46 AM Ordering Provider: [facility]02-13-2023 Note ORIGINAL EXAMINATION: THREE XRAY VIEWS [...] Sign Date: 07/11/2022 8:51:46 AM Ordering Provider: [facility]09-12-2022 Note [facility] [place] [address] PERSONAL HISTORY AND PHYSICAL : [phone] Signed Name: CARLOS ALBERTO HOROWITZ JR MRUN: [id number] : 1970 Loc: ENDO Age / Sex: 51/ M Adm Status: PRE SDC Adm Date:02/15/22 Room/Bed: A 51-year-old patient of [facility] in [place], who comes to discuss endoscopy. He has [...] Date/Time: 02/07/22 1659 Transcribed Date/Time: 02/07/22 1716[facility] Anesthesiology Consult note* CIRILO MCDONOUGH DO: PERFORM, SIGN, VERIFY Event Display: Anesthesiology Consultation Authored Date: [id number] Patient: CARLOS ALBERTO HOROWITZ Age: 53 years Sex: Male : 1970 [...] device, # 1 EA, 0 Refill(s), Pharmacy: [facility], 177.8, cm, 11/28/23 13:54:00 EDT, Height, 151.4, kg, 11/28/23 13:54:00 EDT, Dosin... Blood Glucose Test Strips: See Instructions, 1 bottle of 100 Test once daily, # 1 EA, 11 Refill(s), Pharmacy: [facility], 177.8, cm, 11/28/23 13:54:00 EDT, Height, 151.4, kg, 11/28/23 13:54:00 EDT, Dosing Weight FLUoxetine 20 mg oral capsule: Dose : 20 mg = 1 cap(s), Oral, qDay, # 30 cap(s), 3 Refill(s), Pharmacy: [facility], 177.8, cm, 11/28/23 13:54:00 EDT, Height, kg, 11/28/23 13:54:00 EDT,Dosing Weight Lancets: See Instructions, qs 1 month supply Test once daily, # 1 EA, 11 Refill(s), Pharmacy: [facility], 177.8, cm, 11/28/23 13:54:00 EDT, Height, 151.4, kg, 11/28/23 13:54:00 EDT, Dosing Weight Lasix 40 mg oral tablet: See Instructions, 1 tab in AM and 0.5 tab in PM, # 135 tab(s), 3 Refill(s), Pharmacy: [facility], 177.8, cm, 11/28/23 13:54:00 EDT, Height, kg, 11/28/23 13:54:00 EDT, Dosing Weight Symbicort 80 mcg-4.5 mcg/inh Inhaler: Dose = 2 puff(s), Inhalation, BID, # 10.2 gram(s), 3 Refill(s), Pharmacy: [facility], 177.8, cm, 11/28/23 13:54:00 EDT, Height, kg, 11/28/23 13:54:00 EDT, Dosing Weight Tikosyn 250 mcg oral capsule: Dose : 250 mcg = 1 cap(s), Oral, BID, # 180 cap(s), 3 Refill(s), Pharmacy: [facility]/pharmacy #[id number], 177.8, cm, 11/28/23 13:54:00 EDT, Height, kg, 11/28/23 13:54:00 EDT, Dosing Weight Toprol-XL 100 mg oral tablet, extended release: Dose : 100 mg = 1 tab(s), Oral, BID, do not crush or chew, # 180 tab(s), 3 Refill(s), Pharmacy: [facility], Shortness of breath, 177.8, cm, 11/28/23 13:54:00 EDT, Height, kg, 11/28/23 13:54:00 EDT, Dosing Weight Trulicity Pen 1.5 mg/0.5 mL subcutaneous solution: Dose : 1.5 mg =, Subcutaneous, qWeek, sent in absence of PCP, # 4 EA, 3 Refill(s), Pharmacy: [facility], 177.8, cm, 11/28/23 13:54:00EDT, Height, kg, 11/28/23 13:54:00 EDT, Dosing Weight Vistaril 25 mg oral capsule: Dose : 25 mg = 1 cap(s), Oral, QID, PRN as needed for anxiety, X 30 day(s), # 120 cap(s), 5 Refill(s), 06/09/24 16:10:00 EST, Pharmacy: [facility], 177.8, cm, 11/28/23 13:54:00 EDT, Height, kg, 11/28/23 13:54:00 EDT, Dosing Weight Xarelto 20 mg oral tablet: Dose : 20 mg = 1 tab(s), Oral, qHS, # 90 tab(s), 3 Refill(s), Pharmacy: [facility], 177.8, cm, 11/28/23 13:54:00 EDT, Height, 151.4, kg, 11/28/23 13:54:00 EDT, Dosing Weight allopurinol 100 mg oral tablet: Dose : 100 mg = 1 tab(s), Oral, qDay, # 90 tab(s), 3 Refill(s), Pharmacy: [facility], 177.8, cm, 11/28/23 13:54:00 EDT, Height, kg, 11/28/23 13:54:00 EDT, Dosing Weight cetirizine 10 mg oral tablet: Dose : 10 mg = 1 tab(s), Oral, Daily, # 90 tab(s), 3 Refill(s), Pharmacy: [facility], 177.8, cm, 11/28/23 13:54:00 EDT, Height, kg, 11/28/23 13:54:00 EDT,Dosing Weight nystatin 100,000 units/g topical cream: Apply 1 frida, Topical, BID, X 10 day(s), # 30 gram(s), 1 Refill(s), Pharmacy: [facility]/pharmacy #[id number], Cream, 177, cm, 01/12/24 9:42:00 EDT, Height, 148.6, kg, 01/12/24 9:42:00 EDT, Dosing Weight omeprazole 40 mg oral delayed release capsule: Dose : 40 mg = 1 cap(s), Oral, BID, before a meal., # 180 cap(s), 3 Refill(s), Pharmacy: [facility], 177.8, cm, 11/28/23 13:54:00 EDT, Height, kg, 11/28/23 13:54:00 EDT, Dosing Weight rosuvastatin 20 mg oral tablet: Dose : 20 mg = 1 tab(s), Oral, Daily, # 100 tab(s), 3 Refill(s), Pharmacy: [facility], 177.8, cm, 11/28/23 13:54:00 EDT, Height, kg, 11/28/23 13:54:00 EDT, Dosing Weight sacubitril-valsartan 49 mg-51 mg oral tablet: Dose = 1 tab(s), Oral, BID, # 180 tab(s), 3 Refill(s), Pharmacy: [facility], 177.8, cm, 11/28/23 13:54:00 EDT, Height, kg, 11/28/23 13:54:00 EDT, Dosing Weight spironolactone 25 mg oral tablet: Dose : 25 mg = 1 tab(s), Oral, qDay, # 90 tab(s), 3 Refill(s), Pharmacy: [facility], 177.8, cm, 11/28/23 13:54:00 EDT, Height, kg, 11/28/23 13:54:00 EDT, Dosing Weight tiZANidine 2 mg oral tablet: Dose : 2 mg = 1 tab(s), Oral, q8h, PRN as needed for muscle spasm, # 90 tab(s), 2 Refill(s), Pharmacy: [facility], 177.8, cm, 11/28/23 13:54:00 EDT, Height, kg, 11/28/23 13:54:00 EDT, Dosing Weight traZODone 100 mg oral tablet: Dose : 100 mg = 1 tab(s), Oral, qHS, # 90 tab(s), 3 Refill(s), Pharmacy: [facility], 177.8, cm, 11/28/23 13:54:00 EDT, [...] list: Medical Asthma exacerbation / SNOMED CT 9728969784 / Confirmed Anxiety / SNOMED CT 29270748 / Confirmed Atopic dermatitis / SNOMED CT 06876265 / Confirmed BMI 45.0-49.9, adult / SNOMED CT 0071878813 / Confirmed Cardiomyopathy / SNOMED CT 673213279 / Confirmed Diabetes mellitus / SNOMED CT 602095115 / Confirmed Generalized anxiety disorder / SNOMED CT 39026604 / Confirmed Hyperlipidemia / SNOMED CT 63325387 / Confirmed Hypertension / SNOMED CT 5806294822 / Confirmed Insomnia / SNOMED CT 690242573 / Confirmed Moderate asthma / SNOMED CT 7487167066 / Confirmed Morbid obesity / SNOMED CT 054588123 / Confirmed Chewing tobacco nicotine dependence / SNOMED CT 57510240 / Confirmed Obstructive sleep apnea / SNOMED CT 335638874 / Confirmed Right knee pain / SNOMED CT 1920897328 / Confirmed Paroxysmal atrial fibrillation / SNOMED CT 249654893 / Confirmed Screening for ischemic heart disease / SNOMED CT 276629363 / Confirmed Screening for colon cancer / SNOMED CT 903046155 / Confirmed Prediabetes / SNOMED CT 4129990781 / Confirmed Right flank pain / SNOMED CT 739565696 / Confirmed Type 2 diabetes mellitus with hemoglobin A1c goal of less than 7.0% / SNOMED CT 573626859 / Confirmed Wheezing / SNOMED CT 42522668 / Confirmed, Active Problems (26) Anxiety Asthma [...] Mother Grandparent Stroke Father Procedure history: Cardioversion ([id number]) on 12/23/2022 at 52 Years. Echocardiogram ([id number]) on 11/11/2022 at 52 Years. Comments: 03/20/2023 [...] right atrial pressure is [address] [facility] ([id number]). Comments: 07/11/2022 8:26 EST - Bharath, SHAHEEN [...] On and Limits Checked Nail Bed Color Wilkinson Capillary Refill < 2 seconds Heart Sounds [...] Elimination Voiding, no difficulties All Extremity Description Wilkinson Skin Temperature Warm Temperature All Extremities Warm Skin Description [place], Dry Skin Integrity Intact Skin Turgor Non-Elastic Mucous Membrane Color [place]kinson Mucous Membrane Description Moist Neurological Language Able to speak clearly Neurological Symptoms Patient denies Gait Unable to assess Extremity Movement Equal Swallowing Difficulty None Characteristics of Communication Appropriate Characteristics of Speech Clear Facial Symmetry Symmetric Level of Consciousness Alert Aspiration Risk None Eye Opening Response [place] Spontaneously Best Motor Response Luis Felipe Obeys [...] On and Limits Checked Nail Bed Color [place]kinson Capillary Refill < 2 seconds Heart Sounds ICU S1S2 Heart Rhythm Irregular Cardiac Rhythm Sinus rhythm Monitoring Lead II, V5/MCL5 IL Interval 0.16 second(s) QRS Duration 0.08 second(s) [...] Elimination Voiding, no difficulties All Extremity Description Wilkinson Skin Temperature Warm Temperature All Extremities Warm Skin Description Wilkinson, Dry Skin Integrity Intact Skin Turgor Non-Elastic Mucous Membrane Color [place]kinson Mucous Membrane Description Moist Neurological Language Able to speak clearly Neurological Symptoms Patient denies Gait Unable to assess Extremity Movement Equal Swallowing Difficulty None Characteristics of Communication Appropriate Characteristics of Speech Clear Facial Symmetry Symmetric Level of Consciousness Alert Aspiration Risk None Eye Opening Response [place] Spontaneously Best Motor Response [place] Obeys simple commands Best Verbal Response [place] Oriented [place] Coma Score 15 CLARA Yes Strength All [...] date/time 01/31/2024 22:20 Provider Notified MILY MAURER APRN-CAR SHIFTER Notification Method Pager Information Communicated Medication request [...] On and Limits Checked Nail Bed Color [place] Capillary Refill < 2 seconds Heart Sounds [...] Movement Makes facial grimaces All Extremity Description Wilkinson Skin Temperature Warm Temperature All Extremities Warm Skin Description [place], Dry Skin Integrity Intact Skin Turgor Non-Elastic Mucous Membrane Color [place] Mucous Membrane Description Moist Sensory Perception [place] [...] Alert Aspiration Risk None Eye Opening Response [place] Spontaneously Best Motor Response Luis Felipe Obeys simple commands Best Verbal Response [place] Oriented [place] Coma Score 15 CLARA Yes Left Pupil [...] bedrest, wheelchair, nurse IV/PRN Adapter Fall Risk [place] Yes Gait Weak or Impaired Fall Risk [...] On and Limits Checked Nail Bed Color [place] Capillary Refill < 2 seconds Heart Sounds [...] intact Skin Turgor Non-Elastic Mucous Membrane Color [place] Mucous Membrane Description Moist Neurological Language Able to speak clearly Neurological Symptoms Patient denies Extremity Movement Equal Swallowing Difficulty None Characteristics of Communication Appropriate Characteristics of Speech Clear Facial Symmetry Symmetric Level of Consciousness Alert Aspiration Risk None Eye Opening Response [place] Spontaneously Best Motor Response [place] Obeys simple commands Best Verbal Response Luis [...] of Bed Elevated 30 01/31/2024 15:38 EDT [facility] Current Living Situation I have a steady place to live [facility] Current Issues Living Environment None [facility] Worried Food Running Out P12M Never true [facility] Food Gone, No Money To Buy P12M Never true [facility] No Transport Med/Appt/Work P12M No [facility] Utilities Threaten Shut Off P12M No [facility] Anyone Physically Hurt You Never (1) [facility] Anyone Insult Or Talk Down To You Never (1) [facility] Anyone Threaten You With Harm Never (1) [facility] Anyone Scream Or Curse At You Never (1) [facility] Safety Total Score 4 Living Situation Lives with family Discharge To, Anticipated Home independently Anticipated Discharge Date 02/02/2024 Transition Planning Note Transition Planning Initial Assessment 01/31/2024 15:36 EDT Primary Care Phone Message Transition of Care sent from [facility] 01/31/2024 14:59 EDT heparin 9,000 unit(s) unit(s) Dextrose 5% Premix Diluent 90 mL mL 01/31/2024 14:43 EDT [place] Body Weight 72.7 kg Home Diet Regular Weight Chg, Unintentional Nutrition Hx Weight stable per [place] history Appetite Good Nutrition Plan of Care Dietitian follow up/monitor, Encourage PO feedings, Participate in team conference Nutrition Follow-Up Needed Yes Days until Quotation Clerk Follow Up Seven days Adult Nutrition Initial Assessment/Plan Adult Nutrition Assessment/Plan 01/31/2024 14:22 EDT Transition of Care Note Transition of Care sent from [facility] 01/31/2024 14:00 EDT Hand Right 01/30/2024 [...] On and Limits Checked Nail Bed Color Wilkinson Capillary Refill < 2 seconds Heart Rhythm [...] Description Normal for ethnicity Mucous Membrane Color [place] Mucous Membrane Description Moist Hand Right 01/30/2024 [...] On and Limits Checked Nail Bed Color [place] Capillary Refill < 2 seconds Heart Rhythm [...] intact Skin Turgor Non-Elastic Mucous Membrane Color [place] Mucous Membrane Description Moist Continuous IV Infusions [...] Alert Aspiration Risk None Eye Opening Response [place] Spontaneously Best Motor Response [place] Obeys simple commands Best Verbal Response [place] Oriented Luis Felipe Coma Score 15 CLARA [...] On and Limits Checked Nail Bed Color [place] Capillary Refill < 2 seconds Heart Rhythm [...] Description Normal for ethnicity Mucous Membrane Color [place] Mucous Membrane Description Moist Continuous IV Infusions [...] On and Limits Checked Nail Bed Color [place] Capillary Refill < 2 seconds Heart Rhythm [...] intact Skin Turgor Non-Elastic Mucous Membrane Color [place] Mucous Membrane Description Moist Continuous IV Infusions [...] Alert Aspiration Risk None Eye Opening Response [place] Spontaneously Best Motor Response Luis Felipe Obeys simple commands Best Verbal Response Luis Felipe Oriented [place] Coma Score 15 CLARA Yes Left Pupil [...] On and Limits Checked Nail Bed Color [place] Capillary Refill < 2 seconds Heart Rhythm [...] intact Skin Turgor Non-Elastic Mucous Membrane Color [place] Mucous Membrane Description Moist Continuous IV Infusions [...] On and Limits Checked Nail Bed Color [place] Capillary Refill < 2 seconds Heart Rhythm [...] intact Skin Turgor Non-Elastic Mucous Membrane Color [place] Mucous Membrane Description Moist Hand Right 01/30/2024 [...] Alert Aspiration Risk None Eye Opening Response [place] Spontaneously Best Motor Response Luis Felipe Obeys simple commands Best Verbal Response [place] Oriented [place] Coma Score 15 CLARA Yes Left Pupil [...] EDT Designated Person #1 We May Share [facility] MARILY[facility] [place] [phone] Designated Person #1 Relationship Sibling Designated Person #2 We May Share [facility] Designated Person #2 We May Share [facility] Designated Person #2 Relationship Significant other Privacy Restrictions Requested None Height 175 cm Height in inches 68.9 inch(es) Admission Weight 149.1 kg Weight Lbs 328 lb [place] Body Weight 70.46 kg BSA Admission 2.55 [...] evident Teaching Method Explanation Preferred Spoken Language Wallisian Preferred Written Language Wallisian Teaching Evaluation No further teaching needed Safety Brochure Information Reviewed Unable to complete Larry Welcome Video Viewed Patient refused Information Given by [...] On and Limits Checked Nail Bed Color [place]kinson Capillary Refill < 2 seconds Heart Sounds [...] intact Skin Turgor Non-Elastic Mucous Membrane Color [place] Mucous Membrane Description Moist Sensory Perception [place] [...] Alert Aspiration Risk None Eye Opening Response [place] Spontaneously Best Motor Response Luis Felipe Obeys simple commands Best Verbal Response Luis Felipe Oriented [place] Coma Score 15 CLARA Yes Left Pupil [...] explained to patient, Risks and benefits explained [facility] 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 of Receiving Facility Accepting Pt Dr. flores Date/Time Transfer Accepted 01/30/2024 23:[address] Flores Date/Time Physician Accepted Patient 01/30/2024 23:10 Nurse Receiving Report Nora RN Nurse Receiving Report Nora Date/Time Nurse Received Report 01/31/2024 1:43 Date/Time Nurse Received Report 01/31/2024 1:43 Mode of Transfer Ground ambulance Required Personnel for Transfer Usability Architect [facility] Nursing [facility] MICU Discharged to Another [...] 250 mL mL . Assessment and Plan [place] [employer]hesi[employer] (ASA) physical status classification: [...] CIRILO MCDONOUGH DO on 02/01/2024 06:26 AM [facility] Discharge summary Author Farzad Camilo [facility] Note Date/Time December 21, 2024 1:02 pm [facility] Medical Records Department [address] [place] [address] Transfer to [facility] Care MR#: [id number] Acct: [id number] Name: CARLOS ALBERTO HOROWITZ Jr. Rep #:[id number] : 1970 54 From: Farzad mejia MD PCP: Dr. Jhonatan Garcia, DO Status:ADM BRENNA Certification of patient admission REQUIRED AT TIME OF ADMISSION. I CERTIFY THAT POST-HOSPITAL ECF SERVICES ARE REQUIRED TO BE GIVEN ON AN IN-PATIENT BASIS BECAUSE OF THE ABOVE NAMED PATIENT'S NEED FOR CORRECTION CARE ON A CONTINUING BASIS FOR THE CONDITION(S) FOR WHICH HE/SHE WAS RECEIVING IN-PATIENT HOSPITAL SERVICES PRIOR TO HIS/HER TRANSFER TO THE F. 12/21/24 0845<Electronically signed by Farzad Camilo MD> [...] tissue disorders Allergies/Procedures Done in Hospital Allergies Jwmbpow-EJM-JiB Reductase Inhibitor Allergy (Mild, Verified 12/20/24 13:07) [...] in before D/C Order can be placed): Long-Term Facility 12/21/24 0845 <Electronically signed by Farzad Camilo MD> Cosigner Signature (if applicable): CC: Dr. Yaz Dee MD; Dr. Austin Estrada MD; Dr. Jhonatan Garcia DO ~ [facility] Work Phone: Discharge summary Author Farzad Camilo [facility] Note Date/Time December 21, 2024 11:3 8am [facility] Medical Records Department [address] [place] [address] Discharge Summary 12/21/24 1134 MR#: [id number] Acct: [id number] Name: WARRENCARLOS ALBERTO Briones Lucian Kelsey Rep #:[id number] : 1970 54 From: Farzad mejia MD PCP: Dr. Jhonatan Garcia DO Status:ADM BRENNA Location: [place] [address] Providers Date of Admission: 12/20/24 Primary Care [...] 31 Hospital Course: Per HPI: CARLOS ALBERTO HOROWITZ, is [id number] male history of hypertension, gout, cardiomyopathy, GERD, diabetes, depression and anxiety, KOFFI who presented [facility] ED 12/20/2024 for right hand pain, [...] 76.3 H, Lymph % (Auto) 10.6 L, [place] % (Auto) 10.6 H, Eos % (Auto) [...] (Auto) 68.8, Lymph % (Auto) 15.1 L, [place] % (Auto) 13.4 H, Eos % (Auto) [...] swelling. No significant bony abnormality Reading Location: [id number] D/C Instructions DC O2, CPAP, BIPAP Needs [...] in before D/C Order can be placed): Long-Term Facility Charges/Coding Visit Charges Inpatient E&M: 91440 Disch Hosp >30min 12/21/24 1138 <Electronically signed by Farzad Camilo MD> Cosigner Signature (if applicable): CC: Dr. Farzad Camilo MD; Dr. Jhonatan Garcia DO~ Signed [facility] Work Phone: Evaluation + Plan note No data available for this section [facility] Evaluation + Plan note Future Appointments Appointment Date:11/03/2022 09:15:00 AM Scheduled Provider:ZHOU ESPINOSA Location:[facility] Appointment Type:CV [facility] Appointment Date:11/08/2022 02:00:00 PM Scheduled Provider:GIRMA CORREA Location:[facility] Appointment Type:PC [place] [facility] Unassigned ED Follow Up [facility] Evaluation + Plan note Future Appointments Appointment Date:11/04/2022 08:45:00 AM Scheduled Provider: Location:[facility] Appointment Type:CV [place] Appointment Date:11/08/2022 02:00:00 PM Scheduled Provider:GIRMA CORREA Location:[facility] Appointment Type:PC [place] Unassigned ED Follow Up [facility] Evaluation + Plan note Future Appointments Appointment Date:12/13/2022 03:00:00 PM Scheduled Provider:GIRMA CORREA Location:[facility] Appointment Type:PC OV Follow Up [facility] Evaluation + Plan note Future Appointments Appointment Date:02/07/2023 02:30:00 PM Scheduled Provider:GIRMA CORREA Location:[facility] Appointment Type:PC OV [facility] Evaluation + Plan note Future Appointments Appointment Date:06/20/2023 02:30:00 PM Scheduled Provider:GIRMA CORREA Location:[facility] Appointment Type:PC OV Future Scheduled Tests Laboratory* Basic Metabolic Panel 04/01/23 * A1C Hemoglobin 06/09/23 * Lipid Profile 06/09/23 * Complete Metabolic Panel 06/09/23 [facility] Evaluation + Plan note Future Appointments Appointment Date:08/22/2023 12:00:00 PM Scheduled Provider: Location:[facility] Appointment Type:PF PFT w/[place]od[place] Appointment Date:11/07/2023 02:00:00 PM Scheduled Provider:GIRMA CORREA Location:[facility] Appointment Type:PC OV Future Scheduled Tests Laboratory* Basic Metabolic Panel 04/01/23 [facility] Evaluation + Plan note Future Appointments Appointment Date:11/07/2023 02:00:00 PM Scheduled Provider:GIRMA CORREA Location:[facility] Appointment Type:PC OV Future Scheduled Tests Laboratory* Basic Metabolic Panel 04/01/23 [facility] evaluation + Plan note Future Appointments Appointment Date:06/20/2023 10:00:00 AM Scheduled Provider:GIRMA CORREA Location:[facility] Appointment Type:PC OV Hospital Follow-Up Appointment Date:06/20/2023 02:30:00 PM Scheduled Provider:GIRMA CORREA Location:[facility] Appointment Type:PC OV Appointment Date:07/17/2023 03:15:00 PM Scheduled Provider:ZHOU ESPINOSA Location:[facility] Appointment Type:CV OV Future Scheduled Tests Laboratory* Basic Metabolic Panel 04/01/23 * A1C Hemoglobin 06/09/23 * Lipid Profile 06/09/23 * Complete Metabolic Panel 06/09/23 [facility] Evaluation + Plan note Future Appointments Appointment Date:02/13/2024 03:30:00 PM Scheduled Provider:GIRMA CORREA Location:[facility] Appointment Type:PC Wellness Annual w/Labs Future Scheduled Tests Laboratory* Basic Metabolic Panel 04/01/23 * Prostate Specific Antigen 02/07/24 * A1C Hemoglobin 02/07/24 * Lipid Profile 02/07/24 * Complete Metabolic Panel 02/07/24 [facility] Evaluation + Plan note Future Appointments Appointment Date:03/26/2024 08:00:00 PM Scheduled Provider: Location:[facility] Appointment Type: Sameer Study Appointment Date:05/14/2024 03:00:00 PM Scheduled Provider:GIRMA CORREA Location:[facility] Appointment Type:PC OV Lab Check Future Scheduled Tests Laboratory* Basic Metabolic Panel 02/07/24 * Basic Metabolic Panel 02/19/24 * Basic Metabolic Panel 04/01/23 * Magnesium Level 02/07/24 * A1C Hemoglobin 05/14/24 * Lipid Profile 05/14/24 * Complete Metabolic Panel 05/14/24 [facility] Evaluation + Plan note Future Appointments Appointment Date:04/01/2024 01:00:00 PM Scheduled Provider:DAMIAN SHRESTHA MD Location:[facility] Appointment Type:GS OV Appointment Date:05/14/2024 03:00:00 PM Scheduled Provider:GIRMA CORREA Location:[facility] Appointment Type:PC OV Lab Check Future Scheduled Tests Laboratory* Basic Metabolic Panel 02/07/24 * Basic Metabolic Panel 02/19/24 * Basic Metabolic Panel 04/01/23 * Magnesium Level 02/07/24 * A1C Hemoglobin 05/14/24 * Lipid Profile 05/14/24 * Complete Metabolic Panel 05/14/24 [facility] Evaluation + Plan note Future Appointments Appointment Date:02/13/2024 03:30:00 PM Scheduled Provider:GIRMA CORREA Location:[facility] Appointment Type: Wellness Annual w/Labs Future Scheduled Tests Laboratory* Basic Metabolic Panel 02/07/24 * Basic Metabolic Panel 02/19/24 * Basic Metabolic Panel 04/01/23 * Magnesium Level 02/07/24 [facility] Evaluation + Plan note Future Appointments Appointment Date:08/12/2024 03:00:00 PM Scheduled Provider:GIRMA CORREA Location:[facility] Appointment Type: Wellness Annual Future Scheduled Tests Laboratory* Basic Metabolic Panel 02/07/24 * Basic Metabolic Panel 02/19/24 * Magnesium Level 02/07/24 [facility] Evaluation + Plan note Future Appointments Appointment Date:10/23/2024 04:00:00 PM Scheduled Provider:GIRMA CORREA Location:[facility] Appointment Type:PC OV Appointment Date:11/08/2024 02:30:00 PM Scheduled Provider:EDY WEBER Location:[facility] Appointment Type:[facility] Hospital Follow Up Future Scheduled Tests Laboratory* Basic Metabolic Panel 02/07/24 * Basic Metabolic Panel 12/10/24 * Basic Metabolic Panel 02/19/24 * Magnesium Level 02/07/24 * Complete Blood Count 08/27/24 * Complete Metabolic Panel 08/27/24 * N-Terminal proBNP 08/27/24 [facility] Evaluation noteNo assessment information available [facility] Work Phone: Hospital Discharge instructions Additional Instructions Call Dr. Etienne's office on Monday to be seen later this coming week.[facility] Work Phone: Hospital Discharge instructions No data available for this section [facility] Hospital Discharge instructions Additional Instructions Chest x-ray negative. COVID and flu negative. Vapor rubs, humidifier. May use loratadine D that you have at home daily. Cough suppressants as needed. Follow-up with your doctor. Return if any worsening symptoms.[facility] Work Phone: Hospital Discharge instructionsAdditional Instructions Your cardiac workup negative in the ED. Your CT angiogram chest negative for blood clots or any acute findings., Your oxygen dropped down while in the emergency department. Your facility continue oxygen as needed. You have sleep apnea history.[facility] Work Phone: Progress note No data available for this section [facility] Reason for referral (narrative)No reason for referral information availableWTr[facility] Work Phone: Summary note* MACIEJ Rasmussen: PERFORM Event Display: Patient Summary Documents Authored Date: [facility] Summary Purpose Family History No Family [...] October 23, 2022 6 :09am Power of Assembling Fabricator No October 23, 2022 6:09am Advance Directive Response Recorded Date/ Time Living Will No February 12, 2023 7:08am Power of Assembling Fabricator No January 7:08am Advance Directive Response Recorded Date/ Time Do you have a Healthcare Power of Assembling Fabricator? No December 19, 2024 10:20pm Advance Directive Response Recorded Date/ Time Do you have a Healthcare Power of Assembling Fabricator? No December 19, 2024 10:20pm Do you have a Healthcare Power of Assembling Fabricator? No December 20, 2024 2:24pm Advance Directive Response Recorded Date/ Time Do you have a Healthcare Power of Assembling Fabricator? No December 19, 2024 10:20pm Do you have a Healthcare Power of Assembling Fabricator? No December 20, 2024 9:23pm Advance Directive Response Recorded Date/ Time Do you have a Healthcare Power of Assembling Fabricator? No December 19, 2024 10:20pm Do you have a Healthcare Power of Assembling Fabricator? No December 20, 2024 9:23pm Do you have a Healthcare Power of Assembling Fabricator? No December 27, 2024 11:24pm Advance Directive Response Recorded Date/ Time Do you have a Healthcare Power of Assembling Fabricator? No December 19, 2024 10:20pm Do you have a Healthcare Power of Assembling Fabricator? No December 20, 2024 9:23pm Do you have a Healthcare Power of Assembling Fabricator? No December 28, 2024 4:09am Chief Complaint and Reason for Visit Chief Complaint CHEST PAIN Chief Complaint CHEST PAIN cough Chief Complaint Admit Date [facility] LAB WORK October 24, 2024 6:2 0am LAB WORK October 28, 2024 4:00a m LAB WORK October 30, 2024 5:55a m LAB WORK November 04, 2024 5:00a m LAB WORK November 06, 2024 4:00 am CHEST PAIN December 19, 2024 10:1 8pm Chief Complaint Admit Date CORRECTION LAB WORK October 24, 2024 6:2 0am [...] December 202024 5:52pm Chief Complaint Admit Date CORRECTION LAB WORK October 24, 2024 6:2 0am [...] 2024 5 :52pm Chief Complaint Admit Date CORRECTION LAB WORK October 24, 2024 6:2 0am [...] History of fracture of right ankle Augus 2024 3:27am Morbid obesity with BMI of 45.0-49.9, ad ult December 28, 2024 3:27am Obstructive sleep apnea December 28, 2024 3:27am Palpitations December 28, 2024 3:2 7am Postoperative infection December 28, 2024 3:27am Chief Complaint Admit Date CORRECTION LAB WORK October 24, 2024 6:2 0am [...] AFTER CO NTRAST December 21, 2024 8:45am PAF WITH RVR S/P FAILED DCCV WITH FEVER & December 28, 2024 3:48am PAF WITH RVR S/P FAILED DCCV WITH FEVER & December 29, 2024 11:13am Reason for Visit Admit Date Extravasation of intravenous contrast me dium December 20, 2024 5:52pm IV infiltrate December 20, 2024 5:52 pm Localized swelling on right hand December 202024 5:52pm Swelling of right hand December 20, 2024 5 :52pm Atrial fibrillation with RVR December 28, 2024 3:48am Chronic anticoagulation December 28, 2024 3:48am Fever December 28, 2024 3:4 8am History of fracture of right ankle Decus 2024 3:48am Morbid obesity with BMI of 45.0-49.9, ad ult December 28, 2024 3:48am Obstructive sleep apnea December 28, 2024 3:48am Palpitations December 28, 2024 3:4 8am Postoperative infection [place] 2nd, 2025 3:48am Additional Source Comments (unrecognized sect ion and content) No Status Records FoundNo Status Records FoundNo Status Records FoundNo Status Records FoundNo Status Records FoundNo Status Records FoundNo Status Records FoundNo Status Records FoundNo Status Records FoundNo Status Records FoundNo Status Records Found INFORMATION SOURCE (unrecogn ized section and content) DATE CREATED AUTHOR 02/15/2021 [facility] DATE CREATED AUTHOR AUTHOR'S ORGANIZ ATION 08/25/2021 [facility] DATE CREATED AUTHOR AUTHOR'S ORGANIZ ATION 2021 [employer] DATE CREATED AUTHOR AUTHOR'S ORGANIZ ATION 06/07/2022 [facility] DATE CREATED AUTHOR AUTHOR'S ORGANIZ ATION 08/17/2022 [facility] DATE CREATED AUTHOR AUTHOR'S ORGANIZ ATION [facility]2023 [facility] DATE CREATED AUTHOR AUTHOR'S ORGANIZ ATION 02/02/2024 [facility] ([place]) DATE CREATED AUTHOR AUTHOR'S ORGANIZ ATION 10/23/2024 [facility] DATE CREATED AUTHOR AUTHOR'S ORGANIZ ATION 12/20/2024 [facility] DATE CREATED AUTHOR AUTHOR'S ORGANIZ ATION 01/08/2025 [facility] DATE CREATED AUTHOR AUTHOR'S ORGANIZ ATION 01/12/2025 [facility] Care Team (unrecognized sect ion and content) Care Team Personnel Name: PHYSICIAN, NONE Position: Physician Member Role: Primary Care Physician Name: MALORIE PEGUERO MD Position: ED Physician Member Role: ED Physician Address: Address: [facility] [address] [address] [place] [address]- [place] Name: SHAHEEN Sinha Position: AO RN Member Role: ED RN Care Team Related Persons Name: MARILYN OSPINA Care Team Personnel Name: PHYSICIAN, NONE Position: Physician Member Role: Primary Care Physician Name: JEREMIE MCCORMACK MD Position: ED Physician Member Role: ED Physician Address: Address: [facility] [address] [place] [address]- [place] Name: Halley Staples RN Position: AO RN Member Role: ED RN Name: Smyser, Nadya J RN Position: AO RN Member Role: ED RN Care Team Related Persons Name: MARILYN OSPINA Care Teams (unrecognized sec tion and content) Team Status: Active Member Role Status Dates Dr. Ollie Bright MD Family Provider Active ZACARIASCorin RAMOSHOYOS Primary Care Provider Active Team Status: Inactive Member Role Status Dates Dr. Jameel Brown DO Emergency Provider Active ZACARIAS HOYOS Primary Care Provider Active Team Status: Active Member Role Status Dates Dr. Ollie Bright MD Family Provider Active Girma Correa BARREL TURNER, BARREL TURNER-C Primary Care Provider Active Team Status: Inactive Member Role Status Dates Dr. Jameel Brown DO Attending Provider, Emergency Provider Active ZACARIASROMAIN Coombs Primary Care Provider Active Team Status: Inactive Member Role Status Dates Dr. Nguyễn Al DO Emergency Provider Active Girma Correa BARREL TURNER, BARREL TURNER-C Primary Care Provider Active Team Status: Active Member Role/Relationship Status Dates Dr. Jhonatan Garcia DO Primary Care Provider Active Team Status: Active Member Role/Relationship Status Dates Girma Correa BARREL TURNER, BARREL TURNER-C Primary Care Provider Active Start: October 24, 2024 Dr. Dolly HOLCOMB MD Attending Provider Active Start: October 24, 2024 Team Status: Active Member Role/Relationship Status Dates Girma Correa BARREL TURNER, BARREL TURNER-C Primary Care Provider Active Start: October 28, 2024 Dr. Dolly HOLCOMB MD Attending Provider Active Start: October 28, 2024 Dr. Dolly HOLCOMB MD Referring Provider Active Start: October 28, 2024 Team Status: Active Member Role/Relationship Status Dates Girma Correa BARREL TURNER, BARREL TURNER-C Primary Care Provider Active Start: October 30, 2024 Dr. Dolly HOLCOMB MD Attending Provider Active Start: October 30, 2024 Team Status: Active Member Role/Relationship Status Dates Girma Correa BARREL TURNER, BARREL TURNER-C Primary Care Provider Active Start: November 04, 2024 Dr. Dolly HOLCOMB MD Attending Provider Active Start: November 04, 2024 Team Status: Active Member Role/Relationship Status Dates Girma Correa BARREL TURNER, BARREL TURNER-C Primary Care Provider Active Start: November 06, 2024 Dr. Dolly HOLCOMB MD Attending Provider Active Start: November 06, 2024 Dr. Dolly HOLCOMB MD Referring Provider Active Start: November 06, 2024 Team Status: Inactive Member Role/Relationship Status Dates Dr. Nguyễn lA DO Emergency Provider Active Start : December [...] Inactive Member Role/Relationship Status Dates Girma Correa BARREL TURNER, BARREL TURNER-C Primary Care Provider Active Start: November 04, [...] Active Start: December 28, 2024 Dr. Nguyễn Al DO Emergency Provider Active Start : December 28, 2024 Dr. Keagan Rowe DO Admit Provider Active Start: December 28, 2024 Dr. Keagan Rowe DO Attending Provider Active Start: December 28, 2024 Team Status: Inactive Member Role/Relationship Status Dates Dr. Jhonatan Garcia DO Primary Care Provider Active Start: December 28, 2024 End: December 29, 2024 Dr. Nguyễn Al DO Emergency Provider Active Start : December 28, 2024 End: December 29, 2024 Dr. Keagan Rowe DO Admit Provider Active Start: December 28, 2024 End: December 29, 2024 Dr. Keagan Rowe DO Other Provider Active Start: December 28, 2024 End: December 29, 2024 Dr. Enrique Groves MD Other Provider Active Start: December 28, 2024 End: December 29, 2024 Dr. Gala Solano MD Other Provider Active Start : December 28, 2024 End: December 29, 2024 Dr. Sanchez Mitchell MD Other Provider Active St art: December 28, 2024 End: December 29, 2024 Dr. Ghada Callejas MD Other Provider Active Star t: December 28, 2024 End: December 29, 2024 Dr. Akash Harman MD Other Provider Active Sta rt: December 28, 2024 End: December 29, 2024 Dr. Richard Conner MD Other Provider Active Star t: December 28, 2024 End: December 29, 2024 Dr. Landry Etienne MD Other Provider Active Start : December 28, 2024 End: December 29, 2024 Dr. Keagan Garrett DO Other Provider Active Sta rt: December 28, 2024 End: December 29, 2024 Dr. Shaina Alatorre MD Other Provider Active Star t: December 28, 2024 End: December 29, 2024 Dr. Melissa Love MD Other Provider Active St art: December 28, 2024 End: December 29, 2024 Dr. Ezio Ty MD Other Provider Active Start: December 28, 2024 End: December 29, 2024 Dr. Gio Forman MD Other Provider Active S tart: December 28, 2024 End: December 29, 2024 Dr. Ruperto Haynes MD Other Provider Active Start: December 28, 2024 End: December 29, 2024 Landon Ramirez BARREL TURNER, BARREL TURNER-C Other Provider Active Start : December 28, 2024 End: December 29, 2024 Barbara Beyer PA, PA Other Provider Active Start: December 28, 2024 End: December 29, 2024 YAMILKA Lee Other Provider Active Start: December 28, 2024 End: December 29, 2024 Dr. Tricia Carvalho MD Attending Provider Active Start: December 28, 2024 End: December 29, 2024 Team Status: Active Member Role/Relationship Status Dates Dr. Jhonatan Garcia , Primary Care Provider Active Start: December 29, 2024 Dr. Nguyễn Al DO Emergency Provider Active Start : December 29, 2024 Dr. Keagan Rowe DO Admit Provider Active Start: December 29, 2024 Dr. Keagan Rowe DO Other Provider Active Start: December 29, 2024 Dr. Enrique Groves MD Other Provider Active Start: December 29, 2024 Dr. Gala Solano MD Other Provider Active Start : December 29, 2024 Dr. Sanchez Mitchell MD Other Provider Active St art: December 29, 2024 Dr. Ghada Callejas MD Other Provider Active Star t: December 29, 2024 Dr. Akash Harman MD Other Provider Active Sta rt: December 29, 2024 Dr. Richard Conner MD Other Provider Active Star t: December 29, 2024 Dr. Landry Etienne MD Other Provider Active Start : December 29, 2024 Dr. Keagan Garrett DO Other Provider Active Sta rt: December 29, 2024 Dr. Shaina Alatorre MD Other Provider Active Star t: December 29, 2024 Dr. Melissa Love MD Other Provider Active St art: December 29, 2024 Dr. Ezio Ty MD Other Provider Active Start: December 29, 2024 Dr. Gio Forman MD Other Provider Active S tart: December 29, 2024 Dr. Ruperto Haynes MD Other Provider Active Start: December 29, 2024 Landon Ramirez BARREL TURNER, BARREL TURNER-C Other Provider Active Start : December 29, 2024 Barbara Beyer PA, PA Other Provider Active Start: December 29, 2024 YAMILKA Lee Other Provider Active Start: December 29, 2024 Dr. Tricia Carvalho MD Attending Provider Active Start: December 29, 2024 Dr. Tricia Carvalho MD Other Provider Active St art: December 29, 2024 Goals (unrecognized section and content) Goals [...] BE BASED ON THE PRIMARY CLINICAL RECORDS. [employer] [facility]. provides no warranty or guarantee of the accuracy or completeness of information in this document.
[2025-01-23 09:29] LABS: AST(SGOT) 18 U/L (<=37); Alanine Aminotransfer ALT/SGPT 14 U/L (<=46); Albumin, Serum 3.7 g/dL (3.5-5.0); Alkaline Phosphatase 62 U/L (40-129); Anion Gap 11 (5-15); BUN 13 mg/dL (4-19); BUN/Creat Ratio 15.9 RATIO (10-20); CRP 3.33 mg/L (0.0-3.0); Calcium,Total 9.0 mg/dL (7.6-11.0); Carbon Dioxide 25.8 mmol/L (21.0-32.0); Chloride 102 mmol/L (98-108); Globulin 3.3 g/dL (2.2-4.2); Glucose 104 mg/dL (70-99); Potassium 4.1 mmol/L (3.3-5.1)
[2025-01-23 09:50] LABS: Hematocrit 43.9 % (40-54); Hemoglobin 13.8 g/dL (13.0-16.5); Immature Granulocytes Count 0.020 X10^3/uL (0.0-0.0); Mean Corp Hgb Conc 31.4 g/dL (32-36); Mean Corpuscular Volume 84.7 fL (80-94); Mean Platelet Vol. 10.8 fl (6.2-12.0); NRBC Flagged by Analyzer 0 % (0-5); Platelet Count 136 K/mm3 (150-450); RBC Distribution Width CV 14.2 % (11.6-14.6); RBC Distribution Width SD 43.5 fl (35.1-43.9); Red Blood Count 5.18 M/mm3 (4.6-6.2); White Blood Count 4.3 K/mm3 (4.4-11.0)
== END | disposition home or self-care (01) ==
LOC: OLS.SW 05:00
PROVIDERS: Visit Provider Internal Medicine
DX: J44.9 Chronic obstructive pulmonary disease, unspecified (principal); E11.9 Type 2 diabetes mellitus without complications
CPT/HCPCS: 36415; 80053; 85025; 85652; 86140

== ENCOUNTER → 2025-01-28 | Outpatient (REF) | payer MEDICAID, SELFPAY ==
[2025-01-28 10:08] LABS: AST(SGOT) 22 U/L (<=37); Alanine Aminotransfer ALT/SGPT 17 U/L (<=46); Albumin, Serum 3.7 g/dL (3.5-5.0); Alkaline Phosphatase 63 U/L (40-129); Anion Gap 9 (5-15); BUN 17 mg/dL (4-19); BUN/Creat Ratio 17.9 RATIO (10-20); CRP < 3.00 mg/L (0.0-3.0); Calcium,Total 9.3 mg/dL (7.6-11.0); Carbon Dioxide 27.1 mmol/L (21.0-32.0); Chloride 102 mmol/L (98-108); Globulin 3.2 g/dL (2.2-4.2); Glucose 123 mg/dL (70-99); Hematocrit 43.0 % (40-54); Hemoglobin 13.4 g/dL (13.0-16.5); Immature Granulocytes Count 0.010 X10^3/uL (0.0-0.0); Mean Corp Hgb Conc 31.2 g/dL (32-36); Mean Corpuscular Volume 86.2 fL (80-94); Mean Platelet Vol. 10.9 fl (6.2-12.0); NRBC Flagged by Analyzer 0 % (0-5); Platelet Count 123 K/mm3 (150-450); Potassium 4.1 mmol/L (3.3-5.1); RBC Distribution Width CV 14.7 % (11.6-14.6); RBC Distribution Width SD 46.0 fl (35.1-43.9); Red Blood Count 4.99 M/mm3 (4.6-6.2); White Blood Count 4.3 K/mm3 (4.4-11.0)
== END | disposition home or self-care (01) ==
LOC: OLS.SW 05:00
PROVIDERS: Visit Provider Family Medicine
DX: T80.212A Local infection due to central venous catheter, initial encounter (principal); M86.9 Osteomyelitis, unspecified; X58.XXXA Exposure to other specified factors, initial encounter
CPT/HCPCS: 36415; 80053; 85025; 85652; 86140; 87040; 87070; 87077; 87186; 87205

== ENCOUNTER → 2025-02-13 04:00 | Outpatient (REF) | payer MEDICAID, SELFPAY ==
--- OUTSIDE RECORDS SUMMARY | 2025-02-13 03:42 | XMS RPT_ITS | CCD ---
Author Organization [facility] Informat ion Partnership [facility] Care Team Providers Care Emergency Care Attendant Name Role Phone Zacarias Hoyos Referring Unavailable [...] WATTS Attending JAD Ryan Admitting GIRMA Strong [facility] Care Unavailable JAD WATTS Attending JAD Ryan Admitting GIRMA Strong Primary Care Unavailable PITO CORREASEY Attending [facility] Attending Unavailable LORSON, WINDSOR Primary Care Unavailable BETZAIDA PETTIT, DEMI Attending Unavailable LORSON, WINDSOR Primary Care Unavailable BETZAIDA PETTIT, DEMI Attending Unavailable LORSON, WINDSOR Primary Care Unavailable SAMY JONES Attending Unavailable [facility] Care Unavailable CINDY FLORES MD Consulting Unavailable EDWARDO PETTIT, DR LEVIN Attending Unavailabl e LORSON, WINDSOR Primary Care Unavailable LORSON, WINDSOR Primary Care Unavailable ANY DO SLOANE D Attending Unavailable LORSON, WINDSOR Primary Care Unavailable ANY STONE SLOANE D Attending [facility] Admitting [facility] Attending Unavailable [facility] Primary Care Unavailable KAVYA OPEN DIE INSPECTOR-BUILDING PRINCIPAL, JONNY Attending U JAKE Ring Attending Unavailable JAKE MAXWELL Primary Care Unavailable JAKE MAXWELL Admitting Unavailable LORSON OPEN DIE INSPECTOR-BUILDING PRINCIPAL, WINDSOR Primary Care Unavail able DELORES MURO DO Attending Unavailable MANSOOR PETTIT, DR SONNY Woods Consulting Unavailable CIRILO PATEL DO Attending Unavailable LORSON OPEN DIE INSPECTOR-BUILDING PRINCIPAL, WINDSOR Primary Care Unavail able JEREMIE MCCORMACK MD Attending Unavailable LORSON OPEN DIE INSPECTOR-BUILDING PRINCIPAL, WINDS[place] Primary Care Unavail able DR WILNER JOE MD Attending Unavailabl e LORSON OPEN DIE INSPECTOR-BUILDING PRINCIPAL, [facility] Care Unavail able LORSON OPEN DIE INSPECTOR-BUILDING PRINCIPAL, WINDSOR Primary Care Unavail able CIRILO PATEL DO Attending Unavailable DR SAMY JONES MD, V Attending Unavai CINDY Vela MD Consulting Unavailable LORSON OPEN DIE INSPECTOR-BUILDING PRINCIPAL, WINDSOR Primary Care Unavail able DELORES MURO DO Admitting Unavailable DR ANGEL GARCES DO Attending Unavailable LORSON OPEN DIE INSPECTOR-BUILDING PRINCIPAL, WINDSOR Primary Care Unavail able LORSON OPEN DIE INSPECTOR-BUILDING PRINCIPAL, WINDSOR Primary Care Unavail able LORSON OPEN DIE INSPECTOR-BUILDING PRINCIPAL, WINDSOR Attending Unavail able LORSON OPEN DIE INSPECTOR-BUILDING PRINCIPAL, WINDSOR Primary Care Unavail able FARZANA OPEN DIE INSPECTOR-BUILDING PRINCIPALHELEN Attending Unava ilable LORSON OPEN DIE INSPECTOR-BUILDING PRINCIPAL, WIN[place]OR Primary Care Unavail able LORSON OPEN DIE INSPECTOR-BUILDING PRINCIPAL, WINDSOR Attending Unavail able LORSON OPEN DIE INSPECTOR-BUILDING PRINCIPAL, WINDSOR Primary Care Unavail able LORSON OPEN DIE INSPECTOR-BUILDING PRINCIPAL, WINDSOR Attending Unavail able LORSON OPEN DIE INSPECTOR-BUILDING PRINCIPAL, WINDSOR Primary Care Unavail able LORSON OPEN DIE INSPECTOR-BUILDING PRINCIPAL, WINDSOR Attending Unavail able LORSON OPEN DIE INSPECTOR-BUILDING PRINCIPAL, WINDSOR Primary Care Unavail able LORSON OPEN DIE INSPECTOR-BUILDING PRINCIPAL, WINDSOR Attending Unavail able LORSON OPEN DIE INSPECTOR-BUILDING PRINCIPAL, WINDSOR Primary Care Unavail able LORSON OPEN DIE INSPECTOR-BUILDING PRINCIPAL, WINDSOR Attending Unavail able Lorson DIESEL ELECTRICIAN-C, [place] Primary Care Provider [phone] Jamila PETTIT, [...] Ton PETTIT, Dr. Farzad Aden Attending Provider oTn PETTIT, Dr. Farzad Aden Other Provider Zaina [...] Unavailable Paula PETTIT, Dr. Bradford Other Provider [phone] Júnior PETTIT, Dr. Urrutia Other Provider Kimani PETTIT, Dr. Bustos Other Provider Dalila PETTIT, Dr. Ramos Other Provider Unavailable Lowell MD, Dr. Alatorre Other Provider Gerry STONE, Dr. Keagan Epstein Other Provider [phone] Landry PETTIT, Dr. Merritt Other Provider Ivan PETTIT, Dr. Dixon Other Provider Melony PETTIT, Dr. Holguin Other Provider Dickson PETTIT, Dr. Powers Other Provider Dallas PETTIT, Dr. Hickey Other Provider James DIESEL ELECTRICIAN-C, Landon Genao Other Provider Barbara Mehta Other Provider [phone] Teofilo Hill Other Provider [phone] Deven PETTIT, Dr. Tricia Little Attending Provider Deven PETTIT, Dr. Tricia Little Other Provider LORSON OPEN DIE INSPECTOR-BUILDING PRINCIPAL, [facility] Unavail able KORPI DO, NANI Consulting Unavailable MAXIME COLLINS Attending Unavailable MANSOOR PETTIT, DR SONNY Woods Admitting Unavailable TE CASEY MD Consulting Unavailable NATHANIEL PETTIT FACP, DELORES Ashton Consulting Unavail able DR LANDON SMITH MD Consulting Unavailab herberth ELLIOTT MD, DR MAYRA ROBINS Consulting Unavaila BRENNON Ramos MD Attending Unavailable CINDY FLORES MD Admitting Unavailable [facility] OPEN DIE INSPECT[facility] Unavail able HELENA GAINES MD Consulting Unavailable DR ALEXSANDRA HERRMANN MD Consulting Unavailable CINDY FLORES MD Consulting Unavailable MANSOOR PETTIT, DR SONNY Woods Admitting Unavailable LORSON OPEN DIE INSPECT[facility] Unavail able PERNELL SIMONS MD Attending Unavailable ISABEL GOODSON MD, DR MAYRA ROBINS Consulting Unavaila YUE Lopez DOITAR Consulting Unavailabl ANA LUISA Reinoso DO Consulting Unavailable TE CASEY MD Consulting Unavailable CORRY DOCHANTAL S Consulting Unavailable LORSON OPEN DIE INSPECT[facility] Unavail able KORPI DO, NANI Admitting Unavailable KORPI DO NANI Attending Unavailable LUPE STONE, DR ORTIZ Consulting Unavailable CHANTAL WHEATLEY DO Consulting Unavailable MELISSA MARIN MD Consulting Unavailable LARRY BYRNE Consulting Unavailable NADIR PETTIT, DR JONES Admitting Unavailab herberth CORREA OPEN DIE INSPECTOR-BUILDING PRINCIPAL, [facility] Care Unavail able STEFANIE PETTIT, MOY Attending U julio cesar FORMAN MD, GIO Consulting Unavailable ARIEL ZIMMER MD Consulting Unavailable Keagan Rowe Attending Unavailable Keagan Rowe Admitting [facility]available [facility] Unavailable Enrique Groves Consulting Unavailable Gala Solano Consulting Unavailable Sanchez Mitchell Consulting Unavailable Ghada Callejas Consulting Unavailable Akash Harman Consulting Unavailable Richard Conner Consulting Unavailable Landry Etienne Consulting Unavailable Keagan Garrett Consulting Unavailable Shaina Alatorre Consulting Unavailable Melissa Love Consulting Unavailable Ezio Ty Consulting UnavailGio Paulino Consulting Unavailable Ruperto Haynes Consulting Unavailable James HERMOSILLO, Landon Genao Consulting Unavailable Barbara Mehta Consulting Unavail able Teofilo Alvarado Consulting Unavailable Keagan Rowe Consulting Unavailable Landry Etienne Attending Unavailable Deven, Tricia Anabel Consulting Unavailable Farzad Camilo Attending Unavailable [facility] Care Unavailable Yaz Dee Admitting Unavailable Austin Estrada Consulting Unavailable Yaz Dee Consulting Unavailable Farzad Camilo Consulting Unavailable Austin Estrada Attending Unavailable [facility] Care Unavailable Nguyễn Al Referring Unavailable Austin Estrada Attending Unavailable Dolly Walter Attending Unavailable Lornaveed DIESEL ELECTRICIAN, [facility] Unavailable Deven, Tricia Anabel Attending Unavailable Nguyễn Al Attending Unavailable [facility] Care Unavailable GarciaJhonatan Chaves Attending Unavailable [facility] Care Unavailable Dolly Walter Attending Unavailable Sunny DIESEL ELECTRICIAN, [facility] Unavailable Asyaa AICHA, Dolly Referring Unavailable Asyaa Sahara HOLCOMBthi Attending Unavailable Lorson DIESEL ELECTRICIAN, [facility] Unavailable Asyaa Dolly HOLCOMB Attending Unavailable Sunny DIESEL ELECTRICIAN, [facility] Unavailable Dolly Walter Referring Unavailable Keagan Rowe Admitting Unavailable [facility] Primary Care Unavailable Miguel Aam, Tricia Anabel Attending Unavailable Amro, Ahmed Consulting Unavailable Gala Solano Consulting Unavailable Sanchez Mitchell Consulting Unavailable Ghada Callejas Consulting Unavailable Akash Harman Consulting Unavailable Richard Conner Consulting Unavailable Landry Etienne Consulting Unavailable Keagan Garrett Consulting Unavailable Shaina Alatorre Consulting Unavailable Melissa Love Unavailable Ezio Ty Consulting UnavailGio Paulino Consulting Unavailable Ruperto Haynes Consulting Unavailable Landon Ramirez NP Consulting Unavailable Barbara Mehta Consulting Unavail able Teofilo Alvarado Consulting Unavailable Keagan Rowe Consulting Unavailable Farzad Camilo Attending Unavailable Jhonatan Garcia Primary Care Unavailable Yaz Dee Admitting Unavailable Austin Estrada Consulting Unavailable Yaz Dee Consulting Unavailable Jhonatan Raygoza Attending Unavailable Jhonatan Garcia Primary Care Unavailable Dolly Walter Attending Unavailable Jhonatan Garcia Primary Care Unavailable Girma Correa NP Primary Care Unavailable Dolly Walter Attending Unavailable Yaz Dee Attending Unavailable Allergies Allergy Classification Reported Allergen(s) Allergy Type Date of Onset Reaction(s) Facility (9 sources) HMG-CoA reductase inhibitor; Translations: [statins] Propensity to adverse reactions to drug myalgia [facility] (6 sources) Gbgwmnb-Vqa-Guw Reductase Inhibitor Allergy to substance [address] [place] [address] (1 source) Contrast media; Translations: [iodinated radiocontrast agents] Drug allergy [facility] (2 sources) Triiodobenzoic Acids Propensity to adverse reactions [address] [place] [address] (1 source) Iodinated Contrast Media Drug allergy (disorder) [address] [place] [address] Repository (1 source) Sswdnob-Ejr-Eej Reductase Inhibitor Drug allergy (disorder) [address] [place] [address] Repository Medications Current Medications Medication Drug Class(es) [...] every six hours as needed for pain Clovis 325- 5 mg oral tablet Dose = 1 tab(s), Oral, q6h, PRN As needed for severe pain, X 3 day(s), # 12 tab(s), 0 Refill(s), Contusion of rib on right side, 144.4 Start Date: 05/05/23 Stop Date: 05/08/23 Status: Ordered Start: 07-15-2022 End: 07-17-2022 take 1 tablet by mouth every six hours as needed for pain Clovis 325- 5 mg oral tablet Dose = [...] day(s), # 28 tab(s), 0 Refill(s), Pharmacy: [facility]/pharmacy #[id number], Postoperative pain, 175, cm, 12/24/24 0:46:00 EDT, [...] day(s), # 28 tab(s), 0 Refill(s), Pharmacy: [facility]/pharmacy #[id number], Post-op pain, 177.8, cm, [...] q6h, # 120 EA, 0 Refill(s), Pharmacy: [facility]/pharmacy #[id number], 176, cm, 08/27/24 14:57:00 [...] Daily, # 100 tab(s), 3 Refill(s), [facility] #[id number], 178.5, cm, 08/08/23 13:32:00 EDT, Height, kg, [...] device, # 1 EA, 0 Refill(s), Pharmacy: [facility], 177.8, cm, 11/28/23 13:54:00 EDT, Height, 151.4, kg, 11/28/23 13:54:00 EDT, Dosing Weight Start Date: 12/12/23 Status: Ordered Quantity: 1.0 Unit: EA Repeat number: 1 Start: 12-12-2023 Blood Glucose Test Machine See Instructions, Use glucometer daily as directed for blood sugar checks. Dispense insurance preferred device, # 1 EA, 0 Refill(s), Pharmacy: [facility], 177.8, cm, 11/28/23 13:54:00 EDT, Height, 151.4, kg, 11/28/23 13:54:00 EDT, Dosing Weight Start Date: 12/12/23 Status: Ordered cephalexin 500 mg oral tablet (2 sources) Cephalosporin Antibacterial Start: 11-28-2024 End: 12-12-2024 cephalexin 500 mg oral tablet Dose : 500 mg = 1 tab(s), Oral, QID, X 14 day(s), # 56 tab(s), 0 Refill(s), 12/12/24 1:19:00 PM EDT, Pharmacy: [facility]/pharmacy #[id number], 177.8, cm, 11/24/24 11:36:00 [...] 90 tab(s), 3 Refill(s), Pharmacy: [facility], 177.8, cm, 11/28/23 13:54:00 EDT, Height, [...] BID, # 180 cap(s), 4 Refill(s), Pharmacy: [facility]/pharmacy #[id number], 177.8, cm, 10/02/24 6:28:00 EDT, Height, kg, 10/02/24 6:28:00 EDT, Dosing Weight Start Date: 10/04/24 Status: Ordered Quantity: 180.0 Unit: cap(s) Repeat number: 5 Start: 09-24-2024 Tikosyn 250 mc g oral capsule Dose : 250 mcg = 1 cap(s), Oral, BID, # 180 cap(s), 1 Refill(s), Pharmacy: [facility]/pharmacy #[id number], 175, cm, 09/05/24 16:01:00 EDT, Height, kg, 09/05/24 16:01:00 EDT, Dosing Weight Start Date: 09/24/24 Status: Ordered Quantity: 180.0 Unit: cap(s) Repeat number: 2 Start: 12-12-2023 Tikosyn 250 mc g oral capsule Dose : 250 mcg = 1 cap(s), Oral, BID, # 180 cap(s), 3 Refill(s), Pharmacy: [facility]/pharmacy #[id number], 177.8, cm, 11/28/23 13:54:00 EDT, Height, kg, 11/28/23 13:54:00 EDT, Dosing Weight Start Date: 12/12/23 Status: Ordered Quantity: 180.0 Unit: cap(s) Repeat number: 4 Start: 06-09-2023 Tikosyn 250 mc g oral capsule Dose : 250 mcg = 1 cap(s), Oral, BID, # 60 cap(s), 2 Refill(s), [facility] #[id number], 176, cm, 06/07/23 13:36:00 EST, Height, kg, [...] PCP, # 4 EA, 3 Refill(s), Pharmacy: [facility], 177.8, cm, 11/28/23 13:54:00 EDT, Height, kg, 11/28/23 13:54:00 EDT, Dosing Weight Start Date: 12/12/23 Stop Date: 04/02/24 Status: Ordered Start: 08-21-2023 inject 0.5 mL by sub cutaneous injection every week Trulicity Pen 0.75 mg/0.5 mL subcutaneous solution Dose : 0.75 mg = 0.5 mL, Subcutaneous, qWeek, # 2.5 mL, 5 Refill(s), 0.5 mL/Pen, [facility]acy: [facility] #[id number], 177.8, cm, 08/09/23 21:07:00 EDT, Height, kg, [...] qDay, # 30 cap(s), 3 Refill(s), Pharmacy: [facility], 177.8, cm, 11/28/23 13:54:00 EDT, [...] 30 cap(s), 2 Refill(s), [facility]acy: [facility] #[id number], 176, cm, 06/07/23 13:36:00 EST, Height, kg, 06/07/23 13:36:00 EST, Dosing Weight Start Date: 06/09/23 Status: Ordered Start: 01-31-2023 FLUoxetine 20 mg oral tablet Dose : 20 mg = 1 tab(s), Oral, qDay, # 90 tab(s), 3 Refill(s), Pharmacy: [facility] #[id number], 175.3, cm, 12/23/22 6:37:00 EDT, Height, kg, 12/23/22 6:38:00 EDT, Dosing Weight Start Date: 01/31/23 Status: Ordered Start: 12-13-2022 FLUoxetine 20 mg oral tablet Dose : 20 mg = 1 tab(s), Oral, qDay, # 30 tab(s), 3 Refill(s), Pharmacy: [facility] #[id number], 175.3, cm, 12/13/22 14:43:00 EDT, Height Start Date: 12/13/22 Status: Ordered Start: 11-08-2022 FLUoxetine 10 mg oral tablet Dose : 10 mg = 1 tab(s), Oral, qDay, # 30 tab(s), 2 Refill(s), Pharmacy: [facility] #[id number], 177, cm, 11/08/22 13:50:00 EDT, Height Start Date: 11/08/22 Status: Ordered 120 actuat fluticasone propionate 0.11 mg/actuat metered dose inhaler (3 sources) Corticosteroid Start: 08-08-2023 End: 08-02-2024 take 2 puff(s) by inhalation twice daily Flovent HFA 110 mcg/inh inhalation aerosol 2 puff(s), Inhalation, BID, # 3 EA, 3 Refill(s), Pharmacy: [facility] #[id number], 178.5, cm, 08/08/23 13:32:00 EDT, Height, kg, [...] 135 tab(s), 3 Refill(s), Pharmacy: [facility], 177.8, cm, 11/28/23 13:54:00 EDT, Height, kg, 11/28/23 13:54:00 EDT, Dosing Weight Start Date: 12/12/23 Status: Ordered Start: 08-08-2023 take 1 tablet by brandon th in the morning, then take 0.5 tablet by mouth in the evening Lasix 40 mg oral tablet See Instructions, 1 tab in AM and 0.5 tab in PM, # 135 tab(s), 3 Refill(s), Pharmacy: [facility] #[id number], 178.5, cm, 08/08/23 13:32:00 EDT, Height, kg, 08/08/23 13:32:00 EDT, Dosing Weight Start Date: 08/08/23 Status: Ordered Start: 11-14-2022 take 1 tablet by brandon th in the morning, then take 0.5 tablet by mouth in the evening Lasix 40 mg oral tablet See Instructions, 1 tab in AM and 0.5 tab in PM, # 135 tab(s), 0 Refill(s), Pharmacy: [facility] #[id number], 177, cm, 11/08/22 13:50:00 EDT, Height, kg, [...] 30 tab(s), 6 Refill(s), Pharmacy: [facility] #[id number], 175.3, cm, 12/23/22 6:37:00 EDT, Height, kg, 12/23/22 6:38:00 EDT, Dosing Weight Start Date: 12/23/22 Status: Ordered metFORMIN hydrochloride 500 mg oral tablet (13 sources) Biguanide Start: 01-31-2023 MetFORMIN (Eqv-Fortamet) 500 mg oral tablet, EXTENDED RELEASE Dose : 500 mg = 1 tab(s), Oral, qDay, # 90 tab(s), 3 Refill(s), Pharmacy: [facility] #[id number], 175.3, cm, 12/23/22 6:37:00 EDT, Height, kg, [...] day(s), # 30 EA, 5 Refill(s), [facility]acy: [facility] #[id number], 177, cm, 11/08/22 13:50:00 EDT, Height Start Date: 11/08/22 Stop Date: 05/07/23 Status: Ordered nystatin 111386 unt/ml topical cream (1 source) Polyene Antifungal Start: 01-12-2024 End: 02-01-2024 nystatin 100,000 units/g topical cream Apply 1 frida, Topical, BID, X 10 day(s), # 30 gram(s), 1 Refill(s), [id number], Cream, 177, cm, 01/12/24 [...] 0 Refill(s), 05/24/24 2:36:00 PM EST, Pharmacy: [facility]/pharmacy #[id number], 175, cm, 05/14/24 13:59:00 EST, [...] See Instructions, As directed by provider at [facility] # 1 EA, 0 Refill(s), Pharmacy: [facility] #[id number], Colon cancer screening, 175.9, cm, 02/15/23 13:56:00 [...] food, # 90 tab(s), 3 Refill(s), Pharmacy: [facility]/pharmacy #[id number], 177.8, cm, 10/02/24 6:28:00 EDT, Height, kg, 10/02/24 6:28:00 EDT, Dosing Weight Start Date: 10/04/24 Status: Ordered Quantity: 90.0 Unit: tab(s) Repeat number: 4 Start: 02-09-2024 Potassium Chlo ride (Eqv-K-Tab) 10 mEq oral tablet, extended release Dose : 10 mEq = 1 tab(s), Oral, qDay, # 30 tab(s), 3 Refill(s), Pharmacy: [facility]/pharmacy #[id number], 175, cm, 02/09/24 15:58:00 [...] Daily, # 100 tab(s), 3 Refill(s), Pharmacy: [facility], 175, cm, 02/13/24 15:03:00 EDT, [...] Daily, # 100 tab(s), 3 Refill(s), Pharmacy: [facility], 177.8, cm, 11/28/23 13:54:00 EDT, [...] BID, # 180 tab(s), 3 Refill(s), Pharmacy: [facility], 177.8, cm, 11/28/23 13:54:00 EDT, Height, kg, 11/28/23 13:54:00 EDT, Dosing Weight Start Date: 12/12/23 Stop Date: 12/06/24 Status: Ordered Start: 03-22-2023 take 1 tablet by brandon th twice daily sacubitril-valsartan 49 mg-51 mg oral tablet Dose = 1 tab(s), Oral, BID, # 60 tab(s), 3 Refill(s), [facility]acy: [facility] #[id number], 175.3, cm, 03/22/23 13:31:00 EDT, Height, kg, [...] qDay, # 60 tab(s), 5 Refill(s), Pharmacy: [facility] #[id number], 175.3, cm, 12/23/22 6:37:00 EDT, Height, kg, 12/23/22 6:38:00 EDT, Dosing Weight Start Date: 02/07/23 Status: Ordered Start: 11-24-2022 spironolactone 25 mg oral tablet Dose : 25 mg = 1 tab(s), Oral, qDay, # 60 tab(s), 0 Refill(s), Pharmacy: [facility] #[id number], 177, cm, 11/08/22 13:50:00 EDT, Height, kg, 11/08/22 13:50:00 EDT, Dosing Weight Start Date: 11/24/22 Status: Ordered Start: 11-04-2022 spironolactone 25 mg oral tablet Dose : 25 mg = 1 tab(s), Oral, BIDM, # 60 tab(s), 0 Refill(s), Pharmacy: [facility] #[id number], 175.3, cm, 11/04/22 8:52:00 EDT, Height Start [...] BID, # 10.2 gram(s), 3 Refill(s), Pharmacy: [facility], 175, cm, 04/01/24 13:03:00 EST, Height, kg, 04/01/24 13:03:00 EST, Dosing Weight Start Date: 04/08/24 Stop Date: 08/06/24 Status: Ordered Quantity: 10.2 Unit: g Repeat number: 4 Start: 12-12-2023 End: 04-10-2024 take 1 dose by inhalation twice daily Symbicort 80 mcg-4.5 mcg/inh Inhaler Dose = 2 puff(s), Inhalation, BID, # 10.2 gram(s), 3 Refill(s), Pharmacy: [facility], 177.8, cm, 11/28/23 13:54:00 EDT, Height, [...] spasm, # 21 tab(s), 3 Refill(s), Pharmacy: [facility], 182, cm, 06/12/24 13:53:00 EST, Height, kg, 06/12/24 13:53:00 EST, Dosing Weight Start Date: 08/26/24 Stop Date: 09/23/24 Status: Ordered Quantity: 21.0 Unit: tab(s) Repeat number: 4 Start: 03-04-2024 tiZANidine 2 m g oral tablet Dose : 2 mg = 1 tab(s), Oral, q8h, PRN as needed for muscle spasm, # 90 tab(s), 2 Refill(s), Pharmacy: [facility], 175, cm, 02/13/24 15:03:00 EDT, Height, kg, 02/13/24 15:03:00 EDT, Dosing Weight Start Date: 03/04/24 Status: Ordered Quantity: 90.0 Unit: tab(s) Repeat number: 3 Start: 01-08-2024 tiZANidine 2 m g oral tablet Dose : 2 mg = 1 tab(s), Oral, q8h, PRN as needed for muscle spasm, # 90 tab(s), 2 Refill(s), Pharmacy: [facility], 177.8, cm, 11/28/23 13:54:00 EDT, [...] qHS, # 90 tab(s), 2 Refill(s), Pharmacy: [facility]/pharmacy #[id number], 175, cm, 09/05/24 16:01:00 EDT, Height, kg, 09/05/24 16:01:00 EDT, Dosing Weight Start Date: 09/19/24 Status: Ordered Quantity: 90.0 Unit: tab(s) Repeat number: 3 Start: 12-12-2023 traZODone 100 mg oral tablet Dose : 100 mg = 1 tab(s), Oral, qHS, # 90 tab(s), 3 Refill(s), Pharmacy: [facility], 177.8, cm, 11/28/23 13:54:00 EDT, Height, kg, 11/28/23 13:54:00 EDT, Dosing Weight Start Date: 12/12/23 Status: Ordered Quantity: 90.0 Unit: tab(s) Repeat number: 4 Start: 08-08-2023 traZODone 100 mg oral tablet Dose : 100 mg = 1 tab(s), Oral, qHS, # 90 tab(s), 3 Refill(s), [facility]: [facility] #[id number], 178.5, cm, 08/08/23 13:32:00 EDT, Height, kg, 08/08/23 13:32:00 EDT, Dosing Weight Start Date: 08/08/23 Status: Ordered Start: 12-13-2022 End: 04-12-2023 traZODone 100 mg oral tablet Dose : 100 mg = 1 tab(s), Oral, qHS, # 90 tab(s), 3 Refill(s), Pharmacy: [facility] #[id number], 175.3, cm, 12/23/22 6:37:00 EDT, Height, kg, 12/23/22 6:38:00 EDT, Dosing Weight Start Date: 01/31/23 Status: Ordered Start: 11-08-2022 End: 02-06-2023 traZODone 50 mg oral tablet Dose : 50 mg = 1 tab(s), Oral, qHS, # 30 tab(s), 2 Refill(s), Pharmacy: [facility] #[id number], 177, cm, 11/08/22 13:50:00 EDT, Height, kg, [...] day(s), # 30 gram(s), 0 Refill(s), Pharmacy: [facility] #[id number], Cream, 175.3, cm, 12/13/22 14:43:00 EDT, Height, [...] 4 EA, 3 Refill(s), generic OZEMPIC, Pharmacy: [facility] #[id number], 178.5, cm, 08/08/23 13:32:00 EDT, Height, kg, [...] 5 Refill(s), 06/09/24 4:10:00 PM EST, Pharmacy: [facility], 177.8, cm, 11/28/23 13:54:00 EDT, [...] 05/31/23 2:41:00 PM EST, [facility]acy: [facility] #[id number], 175.3, cm, 12/23/22 6:37:00 EDT, Height, kg, [...] chew, # 60 tab(s), 3 Refill(s), Pharmacy: [facility] #[id number], Shortness of breath, 175.3, cm, 03/22/23 13:31:00 EDT, Height, kg, 03/22/23 13:31:00 EDT, Dosing Weight Start Date: 03/22/23 Stop Date: 03/29/23 Status: Ordered Start: 12-23-2022 Toprol-XL 50 m g oral tablet, extended release Dose : 50 mg = 1 tab(s), Oral, BID, # 60 tab(s), 6 Refill(s), Pharmacy: [facility] #[id number], 175.3, cm, 12/23/22 6:37:00 EDT, Height, kg, [...] fibrillation] Onset: 10-16-2024 10-23-2022 Chronic Cardiac dysrhythmias (13 sources) Tachyarrhythmia ; Translations: [...] (5 sources) Fever; Translations: [Fever, unspecified] Onset: 01-23-2025 12-28-2024 Episodic Fluid and electrolyte disorders (10 [...] caused by tuberculosis or sexually transmitted disease) (3 sources) Osteomyelitis; Translations: [Osteomyelitis, unspecified] Onset: 12-23-2024 [...] sources) Long-term current use of anticoagulant; Translations: [FCI (current) use of anticoagulants] Episodic Other aftercare (1 source) Procedure carried out on subject; Translations: [Encounter for other specified aftercare] Onset: 12-04-2024 Episodic Other aftercare (1 source) Encounter for other specified aftercare; Translations: [Encounter for other specified aftercare] Onset: 12-04-2024 Episodic Other aftercare (2 sources) [facility]CI (current) use of anticoagulants; Translations: [long term (current) use of anticoagulants] Onset: 10-16-2024 Episodic [...] Translations: [Other specified soft tissue disorders] Onset: 01-29-2025 Episodic Other injuries and conditions due to [...] mass and lump, right upper limb] Onset: 01-29-2025 Episodic Other upper respiratory infections (2 sources) [...] Test Name Value Interpretation Reference Range Facility CBC W/Diff, Automatedon 09-0 Absolute Lymph 0.61 X10 3/uL Low 0.83-4.51 [facility] Comment on above: Performed By: #### L 500.4050, L501.6710, L101.9900, L100.0100 ####[facility] [address] [place], [address] Absolute Neut 2.6 X10 3/uL Normal 2.0-7.7 [facility] Comment on above: Performed By: #### L 500.4050, L501.6710, L101.9900, L100.0100 ####[facility] [address] [place], [address] Basophils/100 WBC (Bld) 0.5 % Normal 0-1 [facility] Comment on above: Performed By: #### L 500.4050, L501.6710, L101.9900, L100.0100 ####[facility] [address] [place], [address] Eosinophils/100 WBC (Bld) 3.2 % Normal 0-5 [facility] Comment on above: Performed By: #### L 500.4050, L501.6710, L101.9900, L100.0100 ####[facility] [address] [place], [address] Erythrocyte distribution width (RBC) [Ratio] 14.8 % High 11.6-14.6 [facility] Comment on above: Performed By: #### L 500.4050, L501.6710, L101.9900, L100.0100 ####[facility] [address] [place], [address] Hematocrit (Bld) [Volume fraction] 43.3 % Normal 40-54 [facility] Comment on above: Performed By: #### L 500.4050, L501.6710, L101.9900, L100.0100 ####[facility] [address] [place], [address] Hemoglobin (Bld) [Mass/Vol] 13.6 g/dL Normal 13.0-16.5 [facility] Comment on above: Performed By: #### L 500.4050, L501.6710, L101.9900, L100.0100 ####[facility] [address] [place], [address] IG% 0.300 Normal 0.0-0.9 [facility] Comment on above: Result Comment: IG% - Immature Granulocytes (promyelocytes, myelocytes andmetamyelocytes) > 1% indicates that a LEFT SHIFT is Present. Performed By: #### L 500.4050, L501.6710, L101.9900, L100.0100 ####[facility] [address] [place], [address] Lymphocytes/100 WBC (Bld) 16.1 % Low 19-41 [facility] Comment on above: Performed By: #### L 500.4050, L501.6710, L101.9900, L100.0100 ####[facility] [address] [place], [address] MCH (RBC) [Entitic mass] 26.7 pg Low 27.0-32.0 [facility] Comment on above: Performed By: #### L 500.4050, L501.6710, L101.9900, L100.0100 ####[facility] [address] [place], [address] MCHC (RBC) [Mass/Vol] 31.4 g/dL Low 32-36 [facility] Comment on above: Performed By: #### L 500.4050, L501.6710, L101.9900, L100.0100 ####[facility] [address] [place], [address] MCV (RBC) [Entitic vol] 84.9 fL Normal 80-94 [facility] Comment on above: Performed By: #### L 500.4050, L501.6710, L101.9900, L100.0100 ####[facility] [address] [place], [address] Monocytes/100 WBC (Bld) 11.9 % High 0-10 [facility] Comment on above: Performed By: #### L 500.4050, L501.6710, L101.9900, L100.0100 ####[facility] [address] [place], [address] Neutrophils/100 WBC (Bld) 68.0 % Normal 47-70 [facility] Comment on above: Performed By: #### L 500.4050, L501.6710, L101.9900, L100.0100 ####[facility] [address] [place], [address] Nucleated RBC (Bld) [#/Vol] 0 10*3/uL Normal 0-5 [facility] Comment on above: Performed By: #### L 500.4050, L501.6710, L101.9900, L100.0100 ####[facility] [address] [place], [address] Platelet mean volume (Bld) [Entitic vol] 10.1 fL Normal 6.2-12.0 [facility] Comment on above: Performed By: #### L 500.4050, L501.6710, L101.9900, L100.0100 ####[facility] [address] [place], [address] Platelets (Bld) [#/Vol] 137 10*3/uL Low 150-450 [facility] Comment on above: Performed By: #### L 500.4050, L501.6710, L101.9900, L100.0100 ####[facility] [address] [place], [address] RBC (Bld) [#/Vol] 5.10 10*6/uL Normal 4.6-6.2 [facility] Comment on above: Performed By: #### L 500.4050, L501.6710, L101.9900, L100.0100 ####[facility] [address] [place], [address] RDW SD 45.8 fl High 35.1-43.9 [facility] Comment on above: Performed By: #### L 500.4050, L501.6710, L101.9900, L100.0100 ####[facility] [address] [place], [address] WBC (Bld) [#/Vol] 3.8 10*3/uL Low 4.4-11.0 [facility] Comment on above: Performed By: #### L 500.4050, L501.6710, L101.9900, L100.0100 ####[facility] [address] [place], [address] CRPon 02-04-2025 C-REACTIVE PROT < 3.00 Normal 0.0-3.0 [facility] Comment on above: Performed By: #### L 500.4050, L501.6710, L101.9900, L100.0100 ####[facility] [address] [place], [address] Comprehensive Metabolic Prof ilon 09-09-2025 Albumin [Mass/Vol] 3.5 g/dL Normal 3.5-5.0 [facility] Comment on above: Performed By: #### L 500.4050, L501.6710, L101.9900, L100.0100 ####[facility] [address] [place], [address] Albumin/Globulin [Mass ratio] 1.0 {ratio} Normal 0.9-2.4 [facility] Comment on above: Performed By: #### L 500.4050, L501.6710, L101.9900, L100.0100 ####[facility] [address] [place], [address] ALK PHOS 67 U/L Normal 40-129 [facility] Comment on above: Performed By: #### L 500.4050, L501.6710, L101.9900, L100.0100 ####[facility] [address] [place], [address] ALT [Catalytic activity/Vol] 21 U/L Normal <=46 [facility] Comment on above: Performed By: #### L 500.4050, L501.6710, L101.9900, L100.0100 ####[facility] [address] [place], [address] AST [Catalytic activity/Vol] 28 U/L Normal <=37 [facility] Comment on above: Result Comment: Hemo lysis present, Results??could be affected.?? Performed By: #### L 500.4050, L501.6710, L101.9900, L100.0100 ####[facility] [address] [place], [address] Bilirubin [Mass/Vol] 0.28 mg/dL Normal 0.00-1.30 [facility] Comment on above: Performed By: #### L 500.4050, L501.6710, L101.9900, L100.0100 ####[facility] [address] [place], [address] BUN/CRE 15.4 RATIO Normal 10-20 [facility] Comment on above: Performed By: #### L 500.4050, L501.6710, L101.9900, L100.0100 ####[facility] [address] [place], [address] Calcium [Mass/Vol] 8.7 mg/dL Normal 7.6-11.0 [facility] Comment on above: Performed By: #### L 500.4050, L501.6710, L101.9900, L100.0100 ####[facility] [address] [place], [address] Chloride [Moles/Vol] 102 mmol/L Normal 98-108 [facility] Comment on above: Performed By: #### L 500.4050, L501.6710, L101.9900, L100.0100 ####[facility] [address] [place], [address] CO2 [Moles/Vol] 25.3 mmol/L Normal 21.0-32.0 [facility] Comment on above: Performed By: #### L 500.4050, L501.6710, L101.9900, L100.0100 ####[facility] [address] [place], [address] Creatinine [Mass/Vol] 0.88 mg/dL Normal 0.70-1.20 [facility] Comment on above: Performed By: #### L 500.4050, L501.6710, L101.9900, L100.0100 ####[facility] [address] [place], [address] GAP 11 Normal 5-15 [facility] Comment on above: Performed By: #### L 500.4050, L501.6710, L101.9900, L100.0100 ####[facility] [address] [place], [address] GFR/1.73 sq M.predicted among non-blacks MDRD (S/P/Bld) [Vol rate/Area] 103 mL/min/{1.73_m2} Normal >60 [facility] Comment on above: Result Comment: mL/m in/1.73m2 CKD-EPI Creatinine Equation (2020) Performed By: #### L 500.4050, L501.6710, L101.9900, L100.0100 ####[facility] [address] [place], [address] Globulin (S) [Mass/Vol] 3.3 g/dL Normal 2.2-4.2 [facility] Comment on above: Performed By: #### L 500.4050, L501.6710, L101.9900, L100.0100 ####[facility] [address] [place], [address] Glucose [Mass/Vol] 122 mg/dL High 70-99 [facility] Comment on above: Performed By: #### L 500.4050, L501.6710, L101.9900, L100.0100 ####[facility] [address] [place], [address] Potassium [Moles/Vol] 4.3 mmol/L Normal 3.3-5.1 [facility] Comment on above: Result Comment: Hemo lysis present, Results??could be affected.?? Performed By: #### L 500.4050, L501.6710, L101.9900, L100.0100 ####[facility] [address] [place], [address] Sodium [Moles/Vol] 138 mmol/L Normal 133-145 [facility] Comment on above: Performed By: #### L 500.4050, L501.6710, L101.9900, L100.0100 ####[facility] [address] [place], [address] T PROT 6.8 g/dL Normal 5.9-8.4 [facility] Comment on above: Performed By: #### L 500.4050, L501.6710, L101.9900, L100.0100 ####[facility] [address] [place], [address] Urea nitrogen [Mass/Vol] 14 mg/dL Normal 4-19 [facility] Comment on above: Performed By: #### L 500.4050, L501.6710, L101.9900, L100.0100 ####[facility] [address] [place], [address] Erythrocyte Sed Rateon 02-04 SED RATE 19 mm/hr Normal 0-20 [facility] Comment on above: Performed By: #### L 500.4050, L501.6710, L101.9900, L100.0100 ####[facility] [address] [place], [address] Culture, Blood (WB)on 2024 CUB 314-2 No growth in 5 days. Normal [facility] Comment on above: Performed By: #### L 100.0100, M200.1000, L501.6710, L500.4050, L101.9900 ####[facility] [address] [place], [address] Wound Cultureon 01-31-2025 WC Normal [facility] Comment on above: Performed By: #### M 100.2000, M100.3000 ####[facility] [address] [place], [address] CBC W/Diff, Automatedon Absolute Lymph 0.83 X10 3/uL Normal 0.83-4.51 [facility] Comment on above: Order Comment: 314-2 Performed By: #### L 100.0100, M200.1000, L501.6710, L500.4050, L101.9900 ####[facility] [address] [place], [address] Absolute Neut 2.7 X10 3/uL Normal 2.0-7.7 [facility] Comment on above: Order Comment: 314-2 Performed By: #### L 100.0100, M200.1000, L501.6710, L500.4050, L101.9900 ####[facility] [address] [place], [address] Basophils/100 WBC (Bld) 1.2 % High 0-1 [facility] Comment on above: Order Comment: 314-2 Performed By: #### L 100.0100, M200.1000, L501.6710, L500.4050, L101.9900 ####[facility] [address] [place], [address] Eosinophils/100 WBC (Bld) 3.1 % Normal 0-5 [facility] Comment on above: Order Comment: 314-2 Performed By: #### L 100.0100, M200.1000, L501.6710, L500.4050, L101.9900 ####[facility] [address] [place], [address] Erythrocyte distribution width (RBC) [Ratio] 14.7 % High 11.6-14.6 [facility] Comment on above: Order Comment: 314-2 Performed By: #### L 100.0100, M200.1000, L501.6710, L500.4050, L101.9900 ####[facility] [address] [place], [address] Hematocrit (Bld) [Volume fraction] 43.0 % Normal 40-54 [facility] Comment on above: Order Comment: 314-2 Performed By: #### L 100.0100, M200.1000, L501.6710, L500.4050, L101.9900 ####[facility] [address] [place], [address] Hemoglobin (Bld) [Mass/Vol] 13.4 g/dL Normal 13.0-16.5 [facility] Comment on above: Order Comment: 314-2 Performed By: #### L 100.0100, M200.1000, L501.6710, L500.4050, L101.9900 ####[facility] [address] [place], [address] IG% 0.200 Normal 0.0-0.9 [facility] Comment on above: Order Comment: 314-2 Result Comment: IG% - Immature Granulocytes (promyelocytes, myelocytes andmetamyelocytes) > 1% indicates that a LEFT SHIFT is Present. Performed By: #### L 100.0100, M200.1000, L501.6710, L500.4050, L101.9900 ####[facility] [address] [place], [address] Lymphocytes/100 WBC (Bld) 19.5 % Normal 19-41 [facility] Comment on above: Order Comment: 314-2 Performed By: #### L 100.0100, M200.1000, L501.6710, L500.4050, L101.9900 ####[facility] [address] [place], [address] MCH (RBC) [Entitic mass] 26.9 pg Low 27.0-32.0 [facility] Comment on above: Order Comment: 314-2 Performed By: #### L 100.0100, M200.1000, L501.6710, L500.4050, L101.9900 ####[facility] [address] [place], [address] MCHC (RBC) [Mass/Vol] 31.2 g/dL Low 32-36 [facility] Comment on above: Order Comment: 314-2 Performed By: #### L 100.0100, M200.1000, L501.6710, L500.4050, L101.9900 ####[facility] [address] [place], [address] MCV (RBC) [Entitic vol] 86.2 fL Normal 80-94 [facility] Comment on above: Order Comment: 314-2 Performed By: #### L 100.0100, M200.1000, L501.6710, L500.4050, L101.9900 ####[facility] [address] [place], [address] Monocytes/100 WBC (Bld) 12.0 % High 0-10 [facility] Comment on above: Order Comment: 314-2 Performed By: #### L 100.0100, M200.1000, L501.6710, L500.4050, L101.9900 ####[facility] [address] [place], [address] Neutrophils/100 WBC (Bld) 64.0 % Normal 47-70 [facility] Comment on above: Order Comment: 314-2 Performed By: #### L 100.0100, M200.1000, L501.6710, L500.4050, L101.9900 ####[facility] [address] [place], [address] Nucleated RBC (Bld) [#/Vol] 0 10*3/uL Normal 0-5 [facility] Comment on above: Order Comment: 314-2 Performed By: #### L 100.0100, M200.1000, L501.6710, L500.4050, L101.9900 ####[facility] [address] [place], [address] Platelet mean volume (Bld) [Entitic vol] 10.9 fL Normal 6.2-12.0 [facility] Comment on above: Order Comment: 314-2 Performed By: #### L 100.0100, M200.1000, L501.6710, L500.4050, L101.9900 ####[facility] [address] [place], [address] Platelets (Bld) [#/Vol] 123 10*3/uL Low 150-450 [facility] Comment on above: Order Comment: 314-2 Performed By: #### L 100.0100, M200.1000, L501.6710, L500.4050, L101.9900 ####[facility] [address] [place], [address] RBC (Bld) [#/Vol] 4.99 10*6/uL Normal 4.6-6.2 [facility] Comment on above: Order Comment: 314-2 Performed By: #### L 100.0100, M200.1000, L501.6710, L500.4050, L101.9900 ####[facility] [address] [place], [address] RDW SD 46.0 fl High 35.1-43.9 [facility] Comment on above: Order Comment: 314-2 Performed By: #### L 100.0100, M200.1000, L501.6710, L500.4050, L101.9900 ####[facility] [address] [place], [address] WBC (Bld) [#/Vol] 4.3 10*3/uL Low 4.4-11.0 [facility] Comment on above: Order Comment: 314-2 Performed By: #### L 100.0100, M200.1000, L501.6710, L500.4050, L101.9900 ####[facility] [address] [place], [address] CRPon 01-28-2025 C-REACTIVE PROT < 3.00 Normal 0.0-3.0 [facility] Comment on above: Order Comment: 314-2 Performed By: #### L 100.0100, M200.1000, L501.6710, L500.4050, L101.9900 ####[facility] [address] [place], [address] Comprehensive Metabolic Prof ilon 01-28-2025 Albumin [Mass/Vol] 3.7 g/dL Normal 3.5-5.0 [facility] Comment on above: Order Comment: 314-2 Performed By: #### L 100.0100, M200.1000, L501.6710, L500.4050, L101.9900 ####[facility] [address] [place], [address] Albumin/Globulin [Mass ratio] 1.2 {ratio} Normal 0.9-2.4 [facility] Comment on above: Order Comment: 314-2 Performed By: #### L 100.0100, M200.1000, L501.6710, L500.4050, L101.9900 ####[facility] [address] [place], [address] ALK PHOS 63 U/L Normal 40-129 [facility] Comment on above: Order Comment: 314-2 Performed By: #### L 100.0100, M200.1000, L501.6710, L500.4050, L101.9900 ####[facility] [address] [place], [address] ALT [Catalytic activity/Vol] 17 U/L Normal <=46 [facility] Comment on above: Order Comment: 314-2 Performed By: #### L 100.0100, M200.1000, L501.6710, L500.4050, L101.9900 ####[facility] [address] [place], [address] AST [Catalytic activity/Vol] 22 U/L Normal <=37 [facility] Comment on above: Order Comment: 314-2 Performed By: #### L 100.0100, M200.1000, L501.6710, L500.4050, L101.9900 ####[facility] [address], [address] Bilirubin [Mass/Vol] 0.25 mg/dL Normal 0.00-1.30 [facility] Comment on above: Order Comment: 314-2 Performed By: #### L 100.0100, M200.1000, L501.6710, L500.4050, L101.9900 ####[facility] [address], [address] BUN/CRE 17.9 RATIO Normal 10-20 [facility] Comment on above: Order Comment: 314-2 Performed By: #### L 100.0100, M200.1000, L501.6710, L500.4050, L101.9900 ####[facility] [address], [address] Calcium [Mass/Vol] 9.3 mg/dL Normal 7.6-11.0 [facility] Comment on above: Order Comment: 314-2 Performed By: #### L 100.0100, M200.1000, L501.6710, L500.4050, L101.9900 ####[facility] [address] [place], [address] Chloride [Moles/Vol] 102 mmol/L Normal 98-108 [facility] Comment on above: Order Comment: 314-2 Performed By: #### L 100.0100, M200.1000, L501.6710, L500.4050, L101.9900 ####[facility] [address] [place], [address] CO2 [Moles/Vol] 27.1 mmol/L Normal 21.0-32.0 [facility] Comment on above: Order Comment: 314-2 Performed By: #### L 100.0100, M200.1000, L501.6710, L500.4050, L101.9900 ####[facility] [address] [place], [address] Creatinine [Mass/Vol] 0.93 mg/dL Normal 0.70-1.20 [facility] Comment on above: Order Comment: 314-2 Performed By: #### L 100.0100, M200.1000, L501.6710, L500.4050, L101.9900 ####[facility] [address] [place], [address] GAP 9 Normal 5-15 [facility] Comment on above: Order Comment: 314-2 Performed By: #### L 100.0100, M200.1000, L501.6710, L500.4050, L101.9900 ####[facility] [address] [place], [address] GFR/1.73 sq M.predicted among non-blacks MDRD (S/P/Bld) [Vol rate/Area] 98 mL/min/{1.73_m2} Normal >60 [facility] Comment on above: Order Comment: 314-2 Result Comment: mL/m in/1.73m2 CKD-EPI Creatinine Equation (2020) Performed By: #### L 100.0100, M200.1000, L501.6710, L500.4050, L101.9900 ####[facility] [address] [place], [address] Globulin (S) [Mass/Vol] 3.2 g/dL Normal 2.2-4.2 [facility] Comment on above: Order Comment: 314-2 Performed By: #### L 100.0100, M200.1000, L501.6710, L500.4050, L101.9900 ####[facility] [address] [place], [address] Glucose [Mass/Vol] 123 mg/dL High 70-99 [facility] Comment on above: Order Comment: 314-2 Performed By: #### L 100.0100, M200.1000, L501.6710, L500.4050, L101.9900 ####[facility] [address], [address] Potassium [Moles/Vol] 4.1 mmol/L Normal 3.3-5.1 [facility] Comment on above: Order Comment: 314-2 Performed By: #### L 100.0100, M200.1000, L501.6710, L500.4050, L101.9900 ####[facility] [address] [place], [address] Sodium [Moles/Vol] 138 mmol/L Normal 133-145 [facility] Comment on above: Order Comment: 314-2 Performed By: #### L 100.0100, M200.1000, L501.6710, L500.4050, L101.9900 ####[facility] [address] [place], [address] T PROT 6.9 g/dL Normal 5.9-8.4 [facility] Comment on above: Order Comment: 314-2 Performed By: #### L 100.0100, M200.1000, L501.6710, L500.4050, L101.9900 ####[facility] [address] [place], [address] Urea nitrogen [Mass/Vol] 17 mg/dL Normal 4-19 [facility] Comment on above: Order Comment: 314-2 Performed By: #### L 100.0100, M200.1000, L501.6710, L500.4050, L101.9900 ####[facility] [address] [place], [address] Erythrocyte Sed Rateon 01-28 SED RATE 18 mm/hr Normal 0-20 [facility] Comment on above: Order Comment: 314-2 Performed By: #### L 100.0100, M200.1000, L501.6710, L500.4050, L101.9900 ####[facility] [address] [place], [address] Gram Stainon 01-28-2025 GS Positive Normal [facility] Comment on above: Performed By: #### M 100.2000, M100.3000 ####[facility] [address] [place], [address] CBC W/Diff, Automatedon 12-28 Absolute Lymph 0.83 X10 3/uL Normal 0.83-4.51 [facility] Comment on above: Order Comment: 314.2 Performed By: #### L 501.6710, L100.0100, L500.4050, L101.9900 ####[facility] [address] [place], [address] Absolute Neut 2.7 X10 3/uL Normal 2.0-7.7 [facility] Comment on above: Order Comment: 314.2 Performed By: #### L 501.6710, L100.0100, L500.4050, L101.9900 ####[facility] [address] [place], [address] Basophils/100 WBC (Bld) 1.2 % High 0-1 [facility] Comment on above: Order Comment: 314.2 Performed By: #### L 501.6710, L100.0100, L500.4050, L101.9900 ####[facility] [address] [place], [address] Eosinophils/100 WBC (Bld) 2.1 % Normal 0-5 [facility] Comment on above: Order Comment: 314.2 Performed By: #### L 501.6710, L100.0100, L500.4050, L101.9900 ####[facility] [address] [place], [address] Erythrocyte distribution width (RBC) [Ratio] 14.2 % Normal 11.6-14.6 [facility] Comment on above: Order Comment: 314.2 Performed By: #### L 501.6710, L100.0100, L500.4050, L101.9900 ####[facility] [address] [place], [address] Hematocrit (Bld) [Volume fraction] 43.9 % Normal 40-54 [facility] Comment on above: Order Comment: 314.2 Performed By: #### L 501.6710, L100.0100, L500.4050, L101.9900 ####[facility] [address] [place], [address] Hemoglobin (Bld) [Mass/Vol] 13.8 g/dL Normal 13.0-16.5 [facility] Comment on above: Order Comment: 314.2 Performed By: #### L 501.6710, L100.0100, L500.4050, L101.9900 ####[facility] [address] [place], [address] IG% 0.500 Normal 0.0-0.9 [facility] Comment on above: Order Comment: 314.2 Result Comment: IG% - Immature Granulocytes (promyelocytes, myelocytes andmetamyelocytes) > 1% indicates that a LEFT SHIFT is Present. Performed By: #### L 501.6710, L100.0100, L500.4050, L101.9900 ####[facility] [address] [place], [address] Lymphocytes/100 WBC (Bld) 19.3 % Normal 19-41 [facility] Comment on above: Order Comment: 314.2 Performed By: #### L 501.6710, L100.0100, L500.4050, L101.9900 ####[facility] [address] [place], [address] MCH (RBC) [Entitic mass] 26.6 pg Low 27.0-32.0 [facility] Comment on above: Order Comment: 314.2 Performed By: #### L 501.6710, L100.0100, L500.4050, L101.9900 ####[facility] [address] [place], [address] MCHC (RBC) [Mass/Vol] 31.4 g/dL Low 32-36 [facility] Comment on above: Order Comment: 314.2 Performed By: #### L 501.6710, L100.0100, L500.4050, L101.9900 ####[facility] [address] [place], [address] MCV (RBC) [Entitic vol] 84.7 fL Normal 80-94 [facility] Comment on above: Order Comment: 314.2 Performed By: #### L 501.6710, L100.0100, L500.4050, L101.9900 ####[facility] [address] [place], [address] Monocytes/100 WBC (Bld) 14.2 % High 0-10 [facility] Comment on above: Order Comment: 314.2 Performed By: #### L 501.6710, L100.0100, L500.4050, L101.9900 ####[facility] [address] [place], [address] Neutrophils/100 WBC (Bld) 62.7 % Normal 47-70 [facility] Comment on above: Order Comment: 314.2 Performed By: #### L 501.6710, L100.0100, L500.4050, L101.9900 ####[facility] [address] [place], [address] Nucleated RBC (Bld) [#/Vol] 0 10*3/uL Normal 0-5 [facility] Comment on above: Order Comment: 314.2 Performed By: #### L 501.6710, L100.0100, L500.4050, L101.9900 ####[facility] [address] [place], [address] Platelet mean volume (Bld) [Entitic vol] 10.8 fL Normal 6.2-12.0 [facility] Comment on above: Order Comment: 314.2 Performed By: #### L 501.6710, L100.0100, L500.4050, L101.9900 ####[facility] [address] [place], [address] Platelets (Bld) [#/Vol] 136 10*3/uL Low 150-450 [facility] Comment on above: Order Comment: 314.2 Performed By: #### L 501.6710, L100.0100, L500.4050, L101.9900 ####[facility] [address] [place], [address] RBC (Bld) [#/Vol] 5.18 10*6/uL Normal 4.6-6.2 [facility] Comment on above: Order Comment: 314.2 Performed By: #### L 501.6710, L100.0100, L500.4050, L101.9900 ####[facility] [address] [place], [address] RDW SD 43.5 fl Normal 35.1-43.9 [facility] Comment on above: Order Comment: 314.2 Performed By: #### L 501.6710, L100.0100, L500.4050, L101.9900 ####[facility] [address] [place], [address] WBC (Bld) [#/Vol] 4.3 10*3/uL Low 4.4-11.0 [facility] Comment on above: Order Comment: 314.2 Performed By: #### L 501.6710, L100.0100, L500.4050, L101.9900 ####[facility] [address] [place], [address] CRPon 01-23-2025 C-REACTIVE PROT 3.33 mg/L High 0.0-3.0 [facility] Comment on above: Order Comment: 314.2 Performed By: #### L 501.6710, L100.0100, L500.4050, L101.9900 ####[facility] [address], [address] Comprehensive Metabolic Prof ilon 01-23-2025 Albumin [Mass/Vol] 3.7 g/dL Normal 3.5-5.0 [facility] Comment on above: Order Comment: 314.2 Performed By: #### L 501.6710, L100.0100, L500.4050, L101.9900 ####[facility] [address], [address] Albumin/Globulin [Mass ratio] 1.1 {ratio} Normal 0.9-2.4 [facility] Comment on above: Order Comment: 314.2 Performed By: #### L 501.6710, L100.0100, L500.4050, L101.9900 ####[facility] [address] [place], [address] ALK PHOS 62 U/L Normal 40-129 [facility] Comment on above: Order Comment: 314.2 Performed By: #### L 501.6710, L100.0100, L500.4050, L101.9900 ####[facility] [address] [place], [address] ALT [Catalytic activity/Vol] 14 U/L Normal <=46 [facility] Comment on above: Order Comment: 314.2 Performed By: #### L 501.6710, L100.0100, L500.4050, L101.9900 ####[facility] [address] [place], [address] AST [Catalytic activity/Vol] 18 U/L Normal <=37 [facility] Comment on above: Order Comment: 314.2 Performed By: #### L 501.6710, L100.0100, L500.4050, L101.9900 ####[facility] [address] [place], [address] Bilirubin [Mass/Vol] 0.28 mg/dL Normal 0.00-1.30 [facility] Comment on above: Order Comment: 314.2 Performed By: #### L 501.6710, L100.0100, L500.4050, L101.9900 ####[facility] [address] [place], [address] BUN/CRE 15.9 RATIO Normal 10-20 [facility] Comment on above: Order Comment: 314.2 Performed By: #### L 501.6710, L100.0100, L500.4050, L101.9900 ####[facility] [address] [place], [address] Calcium [Mass/Vol] 9.0 mg/dL Normal 7.6-11.0 [facility] Comment on above: Order Comment: 314.2 Performed By: #### L 501.6710, L100.0100, L500.4050, L101.9900 ####[facility] [address] [place], [address] Chloride [Moles/Vol] 102 mmol/L Normal 98-108 [facility] Comment on above: Order Comment: 314.2 Performed By: #### L 501.6710, L100.0100, L500.4050, L101.9900 ####[facility] [address] [place], [address] CO2 [Moles/Vol] 25.8 mmol/L Normal 21.0-32.0 [facility] Comment on above: Order Comment: 314.2 Performed By: #### L 501.6710, L100.0100, L500.4050, L101.9900 ####[facility] [address] [place], [address] Creatinine [Mass/Vol] 0.80 mg/dL Normal 0.70-1.20 [facility] [place] Comment on above: Order Comment: 314.2 Performed By: #### L 501.6710, L100.0100, L500.4050, L101.9900 ####[facility] [address] [place], [address] GAP 11 Normal 5-15 [facility] Comment on above: Order Comment: 314.2 Performed By: #### L 501.6710, L100.0100, L500.4050, L101.9900 ####[facility] [address] [place], [address] GFR/1.73 sq M.predicted among non-blacks MDRD (S/P/Bld) [Vol rate/Area] 106 mL/min/{1.73_m2} Normal >60 [facility] Comment on above: Order Comment: 314.2 Result Comment: mL/m in/1.73m2 CKD-EPI Creatinine Equation (2020) Performed By: #### L 501.6710, L100.0100, L500.4050, L101.9900 ####[facility] [address] [place], [address] Globulin (S) [Mass/Vol] 3.3 g/dL Normal 2.2-4.2 [facility] Comment on above: Order Comment: 314.2 Performed By: #### L 501.6710, L100.0100, L500.4050, L101.9900 ####[facility] [address] [place], [address] Glucose [Mass/Vol] 104 mg/dL High 70-99 [facility] Comment on above: Order Comment: 314.2 Performed By: #### L 501.6710, L100.0100, L500.4050, L101.9900 ####[facility] [address] [place], [address] Potassium [Moles/Vol] 4.1 mmol/L Normal 3.3-5.1 [facility] Comment on above: Order Comment: 314.2 Performed By: #### L 501.6710, L100.0100, L500.4050, L101.9900 ####[facility] [address], [address] Sodium [Moles/Vol] 139 mmol/L Normal 133-145 [facility] Comment on above: Order Comment: 314.2 Performed By: #### L 501.6710, L100.0100, L500.4050, L101.9900 ####[facility] [address] [place], [address] T PROT 7.0 g/dL Normal 5.9-8.4 [facility] Comment on above: Order Comment: 314.2 Performed By: #### L 501.6710, L100.0100, L500.4050, L101.9900 ####[facility] [address] [place], [address] Urea nitrogen [Mass/Vol] 13 mg/dL Normal 4-19 [facility] Comment on above: Order Comment: 314.2 Performed By: #### L 501.6710, L100.0100, L500.4050, L101.9900 ####[facility] [address] [place], [address] Erythrocyte Sed Rateon 01-23 SED RATE 20 mm/hr Normal 0-20 [facility] Comment on above: Order Comment: 314.2 Performed By: #### L 501.6710, L100.0100, L500.4050, L101.9900 ####[facility] [address] [place], [address] Basic Metabolic Profile (BMP )on 01-05-2025 BUN Normal 4-19 [facility] Comment on above: Result Comment: Canc elled via OM: Order cancelled - Patient discharged Performed By: #### L 100.0100, L500.2500 ####[facility] [address] [place], [address] BUN/CRE Normal 10-20 [facility] Comment on above: Result Comment: Canc elled via OM: Order cancelled - Patient discharged Performed By: #### L 100.0100, L500.2500 ####[facility] [address] [place], [address] Calcium Normal 7.6-11.0 [facility] Comment on above: Result Comment: Canc elled via OM: Order cancelled - Patient discharged Performed By: #### L 100.0100, L500.2500 ####[facility] [address] [place], [address] CL Normal 98-108 [facility] Comment on above: Result Comment: Canc elled via OM: Order cancelled - Patient discharged Performed By: #### L 100.0100, L500.2500 ####[facility] [address] [place], [address] CO2 Normal 21.0-32.0 [facility] Comment on above: Result Comment: Canc elled via OM: Order cancelled - Patient discharged Performed By: #### L 100.0100, L500.2500 ####[facility] [address] [place], [address] CREAT,SERUM Normal 0.70-1.20 [facility] Comment on above: Result Comment: Canc elled via OM: Order cancelled - Patient discharged Performed By: #### L 100.0100, L500.2500 ####[facility] [address] [place], [address] eGFR Normal >60 [facility] Comment on above: Result Comment: Canc elled via OM: Order cancelled - Patient discharged Performed By: #### L 100.0100, L500.2500 ####[facility] [address] [place], [address] GAP Normal 5-15 [facility] Comment on above: Result Comment: Canc elled via OM: Order cancelled - Patient discharged Performed By: #### L 100.0100, L500.2500 ####[facility] [address] [place], [address] GLU Normal 70-99 [facility] Comment on above: Result Comment: Canc elled via OM: Order cancelled - Patient discharged Performed By: #### L 100.0100, L500.2500 ####[facility] [address] [place], [address] Potassium Normal 3.3-5.1 [facility] Comment on above: Result Comment: Canc elled via OM: Order cancelled - Patient discharged Performed By: #### L 100.0100, L500.2500 ####[facility] [address] [place], [address] Basic Metabolic Profile (BMP) Normal 133-145 [facility] Comment on above: Result Comment: Canc elled via OM: Order cancelled - Patient discharged Performed By: #### L 100.0100, L500.2500 ####[facility] [address] [place], [address] CBC W/Diff, Automatedon 08- 0 Absolute Neut Normal 2.0-7.7 [facility] Comment on above: Result Comment: Canc elled via OM: Order cancelled - Patient discharged Performed By: #### L 100.0100, L500.2500 ####[facility] [address] [place], [address] HCT Normal 40-54 [facility] Comment on above: Result Comment: Canc elled via OM: Order cancelled - Patient discharged Performed By: #### L 100.0100, L500.2500 ####[facility] [address] [place], [address] HGB Normal 13.0-16.5 [facility] Comment on above: Result Comment: Canc elled via OM: Order cancelled - Patient discharged Performed By: #### L 100.0100, L500.2500 ####[facility] [address] [place], [address] MCH Normal 27.0-32.0 [facility] Comment on above: Result Comment: Canc elled via OM: Order cancelled - Patient discharged Performed By: #### L 100.0100, L500.2500 ####[facility] [address] [place], [address] MCHC Normal 32-36 [facility] Comment on above: Result Comment: Canc elled via OM: Order cancelled - Patient discharged Performed By: #### L 100.0100, L500.2500 ####[facility] [address] [place], [address] MCV Normal 80-94 [facility] Comment on above: Result Comment: Canc elled via OM: Order cancelled - Patient discharged Performed By: #### L 100.0100, L500.2500 ####[facility] [address], [address] NEUT% Normal 47-70 [facility] Comment on above: Result Comment: Canc elled via OM: Order cancelled - Patient discharged Performed By: #### L 100.0100, L500.2500 ####[facility] [address] [place], [address] PLT Normal 150-450 [facility] Comment on above: Result Comment: Canc elled via OM: Order cancelled - Patient discharged Performed By: #### L 100.0100, L500.2500 ####[facility] [address] [place], [address] RBC Normal 4.6-6.2 [facility] Comment on above: Result Comment: Canc elled via OM: Order cancelled - Patient discharged Performed By: #### L 100.0100, L500.2500 ####[facility] [address] [place], [address] RDW CV Normal 11.6-14.6 [facility] Comment on above: Result Comment: Canc elled via OM: Order cancelled - Patient discharged Performed By: #### L 100.0100, L500.2500 ####[facility] [address] [place], [address] RDW SD Normal 35.1-43.9 [facility] Comment on above: Result Comment: Canc elled via OM: Order cancelled - Patient discharged Performed By: #### L 100.0100, L500.2500 ####[facility] [address] [place], [address] WBC Normal 4.4-11.0 [facility] Comment on above: Result Comment: Canc elled via OM: Order cancelled - Patient discharged Performed By: #### L 100.0100, L500.2500 ####[facility] [address] [place], [address] Basic Metabolic Profile (BMP )on 01-04-2025 BUN Normal 4-19 [facility] Comment on above: Result Comment: Canc elled via OM: Order cancelled - Patient discharged Performed By: #### L 100.0100, L500.2500 ####[facility] [address] [place], [address] BUN/CRE Normal 10-20 [facility] Comment on above: Result Comment: Canc elled via OM: Order cancelled - Patient discharged Performed By: #### L 100.0100, L500.2500 ####[facility] [address] [place], [address] Calcium Normal 7.6-11.0 [facility] Comment on above: Result Comment: Canc elled via OM: Order cancelled - Patient discharged Performed By: #### L 100.0100, L500.2500 ####[facility] [address] [place], [address] CL Normal 98-108 [facility] Comment on above: Result Comment: Canc elled via OM: Order cancelled - Patient discharged Performed By: #### L 100.0100, L500.2500 ####[facility] [address] [place], [address] CO2 Normal 21.0-32.0 [facility] Comment on above: Result Comment: Canc elled via OM: Order cancelled - Patient discharged Performed By: #### L 100.0100, L500.2500 ####[facility] [address] [place], [address] CREAT,SERUM Normal 0.70-1.20 [facility] Comment on above: Result Comment: Canc elled via OM: Order cancelled - Patient discharged Performed By: #### L 100.0100, L500.2500 ####[facility] [address] [place], [address] eGFR Normal >60 [facility] Comment on above: Result Comment: Canc elled via OM: Order cancelled - Patient discharged Performed By: #### L 100.0100, L500.2500 ####[facility] [address] [place], [address] GAP Normal 5-15 [facility] Comment on above: Result Comment: Canc elled via OM: Order cancelled - Patient discharged Performed By: #### L 100.0100, L500.2500 ####[facility] [address] [place], [address] GLU Normal 70-99 [facility] Comment on above: Result Comment: Canc elled via OM: Order cancelled - Patient discharged Performed By: #### L 100.0100, L500.2500 ####[facility] [address] [place], [address] Potassium Normal 3.3-5.1 [facility] Comment on above: Result Comment: Canc elled via OM: Order cancelled - Patient discharged Performed By: #### L 100.0100, L500.2500 ####[facility] [address] [place], [address] Basic Metabolic Profile (BMP) Normal 133-145 [facility] Comment on above: Result Comment: Canc elled via OM: Order cancelled - Patient discharged Performed By: #### L 100.0100, L500.2500 ####[facility] [address] [place], [address] CBC W/Diff, Automatedon 08-0 Absolute Neut Normal 2.0-7.7 [facility] Comment on above: Result Comment: Canc elled via OM: Order cancelled - Patient discharged Performed By: #### L 100.0100, L500.2500 ####[facility] [address] [place], [address] HCT Normal 40-54 [facility] Comment on above: Result Comment: Canc elled via OM: Order cancelled - Patient discharged Performed By: #### L 100.0100, L500.2500 ####[facility] [address] [place], [address] HGB Normal 13.0-16.5 [facility] Comment on above: Result Comment: Canc elled via OM: Order cancelled - Patient discharged Performed By: #### L 100.0100, L500.2500 ####[facility] [address] [place], [address] MCH Normal 27.0-32.0 [facility] Comment on above: Result Comment: Canc elled via OM: Order cancelled - Patient discharged Performed By: #### L 100.0100, L500.2500 ####[facility] [address] [place], [address] MCHC Normal 32-36 [facility] Comment on above: Result Comment: Canc elled via OM: Order cancelled - Patient discharged Performed By: #### L 100.0100, L500.2500 ####[facility] [address] [place], [address] MCV Normal 80-94 [facility] Comment on above: Result Comment: Canc elled via OM: Order cancelled - Patient discharged Performed By: #### L 100.0100, L500.2500 ####[facility] [address] [place], [address] NEUT% Normal 47-70 [facility] Comment on above: Result Comment: Canc elled via OM: Order cancelled - Patient discharged Performed By: #### L 100.0100, L500.2500 ####[facility] [address] [place], [address] PLT Normal 150-450 [facility] Comment on above: Result Comment: Canc elled via OM: Order cancelled - Patient discharged Performed By: #### L 100.0100, L500.2500 ####[facility] [address] [place], [address] RBC Normal 4.6-6.2 [facility] Comment on above: Result Comment: Canc elled via OM: Order cancelled - Patient discharged Performed By: #### L 100.0100, L500.2500 ####[facility] [address] [place], [address] RDW CV Normal 11.6-14.6 [facility] Comment on above: Result Comment: Canc elled via OM: Order cancelled - Patient discharged Performed By: #### L 100.0100, L500.2500 ####[facility] [address] [place], [address] RDW SD Normal 35.1-43.9 [facility] Comment on above: Result Comment: Canc elled via OM: Order cancelled - Patient discharged Performed By: #### L 100.0100, L500.2500 ####[facility] [address] [place], [address] WBC Normal 4.4-11.0 [facility] Comment on above: Result Comment: Canc elled via OM: Order cancelled - Patient discharged Performed By: #### L 100.0100, L500.2500 ####[facility] [address] [place], [address] Basic Metabolic Profile (BMP )on 01-03-2025 BUN Normal 4-19 [facility] Comment on above: Result Comment: Canc elled via OM: Order cancelled - Patient discharged Performed By: #### L 500.2500, L100.0100 ####[facility] [address] [place], [address] BUN/CRE Normal 10-20 [facility] Comment on above: Result Comment: Canc elled via OM: Order cancelled - Patient discharged Performed By: #### L 500.2500, L100.0100 ####[facility] [address] [place], [address] Calcium Normal 7.6-11.0 [facility] Comment on above: Result Comment: Canc elled via OM: Order cancelled - Patient discharged Performed By: #### L 500.2500, L100.0100 ####[facility] [address] [place], [address] CL Normal 98-108 [facility] Comment on above: Result Comment: Canc elled via OM: Order cancelled - Patient discharged Performed By: #### L 500.2500, L100.0100 ####[facility] [address] [place], [address] CO2 Normal 21.0-32.0 [facility] Comment on above: Result Comment: Canc elled via OM: Order cancelled - Patient discharged Performed By: #### L 500.2500, L100.0100 ####[facility] [address] [place], [address] CREAT,SERUM Normal 0.70-1.20 [facility] Comment on above: Result Comment: Canc elled via OM: Order cancelled - Patient discharged Performed By: #### L 500.2500, L100.0100 ####[facility] [address] [place], [address] eGFR Normal >60 [facility] Comment on above: Result Comment: Canc elled via OM: Order cancelled - Patient discharged Performed By: #### L 500.2500, L100.0100 ####[facility] [address] [place], [address] GAP Normal 5-15 [facility] Comment on above: Result Comment: Canc elled via OM: Order cancelled - Patient discharged Performed By: #### L 500.2500, L100.0100 ####[facility] [address] [place], [address] GLU Normal 70-99 [facility] Comment on above: Result Comment: Canc elled via OM: Order cancelled - Patient discharged Performed By: #### L 500.2500, L100.0100 ####[facility] [address] [place], [address] Potassium Normal 3.3-5.1 [facility] Comment on above: Result Comment: Canc elled via OM: Order cancelled - Patient discharged Performed By: #### L 500.2500, L100.0100 ####[facility] [address] [place], [address] Basic Metabolic Profile (BMP) Normal 133-145 [facility] Comment on above: Result Comment: Canc elled via OM: Order cancelled - Patient discharged Performed By: #### L 500.2500, L100.0100 ####[facility] [address] [place], [address] CBC W/Diff, Automatedon 08-0 Absolute Neut Normal 2.0-7.7 [facility] Comment on above: Result Comment: Canc elled via OM: Order cancelled - Patient discharged Performed By: #### L 500.2500, L100.0100 ####[facility] [address] [place], [address] HCT Normal 40-54 [facility] Comment on above: Result Comment: Canc elled via OM: Order cancelled - Patient discharged Performed By: #### L 500.2500, L100.0100 ####[facility] [address] [place], [address] HGB Normal 13.0-16.5 [facility] Comment on above: Result Comment: Canc elled via OM: Order cancelled - Patient discharged Performed By: #### L 500.2500, L100.0100 ####[facility] [address] [place], [address] MCH Normal 27.0-32.0 [facility] Comment on above: Result Comment: Canc elled via OM: Order cancelled - Patient discharged Performed By: #### L 500.2500, L100.0100 ####[facility] [address] [place], [address] MCHC Normal 32-36 [facility] Comment on above: Result Comment: Canc elled via OM: Order cancelled - Patient discharged Performed By: #### L 500.2500, L100.0100 ####[facility] [address] [place], [address] MCV Normal 80-94 [facility] Comment on above: Result Comment: Canc elled via OM: Order cancelled - Patient discharged Performed By: #### L 500.2500, L100.0100 ####[facility] [address], [address] NEUT% Normal 47-70 [facility] Comment on above: Result Comment: Canc elled via OM: Order cancelled - Patient discharged Performed By: #### L 500.2500, L100.0100 ####[facility] [address] [place], [address] PLT Normal 150-450 [facility] Comment on above: Result Comment: Canc elled via OM: Order cancelled - Patient discharged Performed By: #### L 500.2500, L100.0100 ####[facility] [address] [place], [address] RBC Normal 4.6-6.2 [facility] Comment on above: Result Comment: Canc elled via OM: Order cancelled - Patient discharged Performed By: #### L 500.2500, L100.0100 ####[facility] [address] [place], [address] RDW CV Normal 11.6-14.6 [facility] Comment on above: Result Comment: Canc elled via OM: Order cancelled - Patient discharged Performed By: #### L 500.2500, L100.0100 ####[facility] [address], [address] RDW SD Normal 35.1-43.9 [facility] Comment on above: Result Comment: Canc elled via OM: Order cancelled - Patient discharged Performed By: #### L 500.2500, L100.0100 ####[facility] [address], [address] WBC Normal 4.4-11.0 [facility] Comment on above: Result Comment: Canc elled via OM: Order cancelled - Patient discharged Performed By: #### L 500.2500, L100.0100 ####[facility] [address], [address] Basic Metabolic Profile (BMP )on 01-02-2025 BUN Normal 4-19 [facility] Comment on above: Result Comment: Canc elled via OM: Order cancelled - Patient discharged Performed By: #### L 500.2500, L100.0100 ####[facility] [address] [place], [address] BUN/CRE Normal 10-20 [facility] Comment on above: Result Comment: Canc elled via OM: Order cancelled - Patient discharged Performed By: #### L 500.2500, L100.0100 ####[facility] [address], [address] Calcium Normal 7.6-11.0 [facility] Comment on above: Result Comment: Canc elled via OM: Order cancelled - Patient discharged Performed By: #### L 500.2500, L100.0100 ####[facility] [address], [address] CL Normal 98-108 [facility] Comment on above: Result Comment: Canc elled via OM: Order cancelled - Patient discharged Performed By: #### L 500.2500, L100.0100 ####[facility] [address] [place], [address] CO2 Normal 21.0-32.0 [facility] Comment on above: Result Comment: Canc elled via OM: Order cancelled - Patient discharged Performed By: #### L 500.2500, L100.0100 ####[facility] [address] [place], [address] CREAT,SERUM Normal 0.70-1.20 [facility] Comment on above: Result Comment: Canc elled via OM: Order cancelled - Patient discharged Performed By: #### L 500.2500, L100.0100 ####[facility] [address] [place], [address] eGFR Normal >60 [facility] Comment on above: Result Comment: Canc elled via OM: Order cancelled - Patient discharged Performed By: #### L 500.2500, L100.0100 ####[facility] [address] [place], [address] GAP Normal 5-15 [facility] Comment on above: Result Comment: Canc elled via OM: Order cancelled - Patient discharged Performed By: #### L 500.2500, L100.0100 ####[facility] [address] [place], [address] GLU Normal 70-99 [facility] Comment on above: Result Comment: Canc elled via OM: Order cancelled - Patient discharged Performed By: #### L 500.2500, L100.0100 ####[facility] [address] [place], [address] Potassium Normal 3.3-5.1 [facility] Comment on above: Result Comment: Canc elled via OM: Order cancelled - Patient discharged Performed By: #### L 500.2500, L100.0100 ####[facility] [address] [place], [address] Basic Metabolic Profile (BMP) Normal 133-145 [facility] Comment on above: Result Comment: Canc elled via OM: Order cancelled - Patient discharged Performed By: #### L 500.2500, L100.0100 ####[facility] [address] [place], [address] CBC W/Diff, Automatedon 08-0 -2024 Absolute Neut Normal 2.0-7.7 [facility] Comment on above: Result Comment: Canc elled via OM: Order cancelled - Patient discharged Performed By: #### L 500.2500, L100.0100 ####[facility] [address] [place], [address] HCT Normal 40-54 [facility] Comment on above: Result Comment: Canc elled via OM: Order cancelled - Patient discharged Performed By: #### L 500.2500, L100.0100 ####[facility] [address] [place], [address] HGB Normal 13.0-16.5 [facility] Comment on above: Result Comment: Canc elled via OM: Order cancelled - Patient discharged Performed By: #### L 500.2500, L100.0100 ####[facility] [address] [place], [address] MCH Normal 27.0-32.0 [facility] Comment on above: Result Comment: Canc elled via OM: Order cancelled - Patient discharged Performed By: #### L 500.2500, L100.0100 ####[facility] [address] [place], [address] MCHC Normal 32-36 [facility] Comment on above: Result Comment: Canc elled via OM: Order cancelled - Patient discharged Performed By: #### L 500.2500, L100.0100 ####[facility] [address] [place], [address] MCV Normal 80-94 [facility] Comment on above: Result Comment: Canc elled via OM: Order cancelled - Patient discharged Performed By: #### L 500.2500, L100.0100 ####[facility] [address], [address] NEUT% Normal 47-70 [facility] Comment on above: Result Comment: Canc elled via OM: Order cancelled - Patient discharged Performed By: #### L 500.2500, L100.0100 ####[facility] [address] [place], [address] PLT Normal 150-450 [facility] Comment on above: Result Comment: Canc elled via OM: Order cancelled - Patient discharged Performed By: #### L 500.2500, L100.0100 ####[facility] [address] [place], [address] RBC Normal 4.6-6.2 [facility] Comment on above: Result Comment: Canc elled via OM: Order cancelled - Patient discharged Performed By: #### L 500.2500, L100.0100 ####[facility] [address] [place], [address] RDW CV Normal 11.6-14.6 [facility] Comment on above: Result Comment: Canc elled via OM: Order cancelled - Patient discharged Performed By: #### L 500.2500, L100.0100 ####[facility] [address] [place], [address] RDW SD Normal 35.1-43.9 [facility] Comment on above: Result Comment: Canc elled via OM: Order cancelled - Patient discharged Performed By: #### L 500.2500, L100.0100 ####[facility] [address], [address] WBC Normal 4.4-11.0 [facility] Comment on above: Result Comment: Canc elled via OM: Order cancelled - Patient discharged Performed By: #### L 500.2500, L100.0100 ####[facility] [address] [place], [address] Basic Metabolic Profile (BMP )on 01-01-2025 BUN Normal 4-19 [facility] Comment on above: Result Comment: Canc elled via OM: Order cancelled - Patient discharged Performed By: #### L 100.0100, L500.2500 ####[facility] [address] [place], [address] BUN/CRE Normal 10-20 [facility] Comment on above: Result Comment: Canc elled via OM: Order cancelled - Patient discharged Performed By: #### L 100.0100, L500.2500 ####[facility] [address] [place], [address] Calcium Normal 7.6-11.0 [facility] Comment on above: Result Comment: Canc elled via OM: Order cancelled - Patient discharged Performed By: #### L 100.0100, L500.2500 ####[facility] [address] [place], [address] CL Normal 98-108 [facility] Comment on above: Result Comment: Canc elled via OM: Order cancelled - Patient discharged Performed By: #### L 100.0100, L500.2500 ####[facility] [address] [place], [address] CO2 Normal 21.0-32.0 [facility] Comment on above: Result Comment: Canc elled via OM: Order cancelled - Patient discharged Performed By: #### L 100.0100, L500.2500 ####[facility] [address] [place], [address] CREAT,SERUM Normal 0.70-1.20 [facility] Comment on above: Result Comment: Canc elled via OM: Order cancelled - Patient discharged Performed By: #### L 100.0100, L500.2500 ####[facility] [address] [place], [address] eGFR Normal >60 [facility] Comment on above: Result Comment: Canc elled via OM: Order cancelled - Patient discharged Performed By: #### L 100.0100, L500.2500 ####[facility] [address] [place], [address] GAP Normal 5-15 [facility] Comment on above: Result Comment: Canc elled via OM: Order cancelled - Patient discharged Performed By: #### L 100.0100, L500.2500 ####[facility] [address] [place], [address] GLU Normal 70-99 [facility] Comment on above: Result Comment: Canc elled via OM: Order cancelled - Patient discharged Performed By: #### L 100.0100, L500.2500 ####[facility] [address] [place], [address] Potassium Normal 3.3-5.1 [facility] Comment on above: Result Comment: Canc elled via OM: Order cancelled - Patient discharged Performed By: #### L 100.0100, L500.2500 ####[facility] [address] [place], [address] Basic Metabolic Profile (BMP) Normal 133-145 [facility] Comment on above: Result Comment: Canc elled via OM: Order cancelled - Patient discharged Performed By: #### L 100.0100, L500.2500 ####[facility] [address] [place], [address] CBC W/Diff, Automatedon 08-0 -2024 Absolute Neut Normal 2.0-7.7 [facility] Comment on above: Result Comment: Canc elled via OM: Order cancelled - Patient discharged Performed By: #### L 100.0100, L500.2500 ####[facility] [address] [place], [address] HCT Normal 40-54 [facility] Comment on above: Result Comment: Canc elled via OM: Order cancelled - Patient discharged Performed By: #### L 100.0100, L500.2500 ####[facility] [address], [address] HGB Normal 13.0-16.5 [facility] Comment on above: Result Comment: Canc elled via OM: Order cancelled - Patient discharged Performed By: #### L 100.0100, L500.2500 ####[facility] [address] [place], [address] MCH Normal 27.0-32.0 [facility] Comment on above: Result Comment: Canc elled via OM: Order cancelled - Patient discharged Performed By: #### L 100.0100, L500.2500 ####[facility] [address], [address] MCHC Normal 32-36 [facility] Comment on above: Result Comment: Canc elled via OM: Order cancelled - Patient discharged Performed By: #### L 100.0100, L500.2500 ####[facility] [address] [place], [address] MCV Normal 80-94 [facility] Comment on above: Result Comment: Canc elled via OM: Order cancelled - Patient discharged Performed By: #### L 100.0100, L500.2500 ####[facility] [address] [place], [address] NEUT% Normal 47-70 [facility] Comment on above: Result Comment: Canc elled via OM: Order cancelled - Patient discharged Performed By: #### L 100.0100, L500.2500 ####[facility] [address] [place], [address] PLT Normal 150-450 [facility] Comment on above: Result Comment: Canc elled via OM: Order cancelled - Patient discharged Performed By: #### L 100.0100, L500.2500 ####[facility] [address] [place], [address] RBC Normal 4.6-6.2 [facility] Comment on above: Result Comment: Canc elled via OM: Order cancelled - Patient discharged Performed By: #### L 100.0100, L500.2500 ####[facility] [address] [place], [address] RDW CV Normal 11.6-14.6 [facility] Comment on above: Result Comment: Canc elled via OM: Order cancelled - Patient discharged Performed By: #### L 100.0100, L500.2500 ####[facility] [address] [place], [address] RDW SD Normal 35.1-43.9 [facility] Comment on above: Result Comment: Canc elled via OM: Order cancelled - Patient discharged Performed By: #### L 100.0100, L500.2500 ####[facility] [address] [place], [address] WBC Normal 4.4-11.0 [facility] Comment on above: Result Comment: Canc elled via OM: Order cancelled - Patient discharged Performed By: #### L 100.0100, L500.2500 ####[facility] [address] [place], [address] Basic Metabolic Profile (BMP )on 12-31-2024 BUN Normal 4-19 [facility] Comment on above: Result Comment: Canc elled via OM: Order cancelled - Patient discharged Performed By: #### L 100.0100, L500.2500 ####[facility] [address] [place], [address] BUN/CRE Normal 10-20 [facility] Comment on above: Result Comment: Canc elled via OM: Order cancelled - Patient discharged Performed By: #### L 100.0100, L500.2500 ####[facility] [address] [place], [address] Calcium Normal 7.6-11.0 [facility] Comment on above: Result Comment: Canc elled via OM: Order cancelled - Patient discharged Performed By: #### L 100.0100, L500.2500 ####[facility] [address] [place], [address] CL Normal 98-108 [facility] Comment on above: Result Comment: Canc elled via OM: Order cancelled - Patient discharged Performed By: #### L 100.0100, L500.2500 ####[facility] [address] [place], [address] CO2 Normal 21.0-32.0 [facility] Comment on above: Result Comment: Canc elled via OM: Order cancelled - Patient discharged Performed By: #### L 100.0100, L500.2500 ####[facility] [address] [place], [address] CREAT,SERUM Normal 0.70-1.20 [facility] Comment on above: Result Comment: Canc elled via OM: Order cancelled - Patient discharged Performed By: #### L 100.0100, L500.2500 ####[facility] [address] [place], [address] eGFR Normal >60 [facility] Comment on above: Result Comment: Canc elled via OM: Order cancelled - Patient discharged Performed By: #### L 100.0100, L500.2500 ####[facility] [address] [place], [address] GAP Normal 5-15 [facility] Comment on above: Result Comment: Canc elled via OM: Order cancelled - Patient discharged Performed By: #### L 100.0100, L500.2500 ####[facility] [address] [place], [address] GLU Normal 70-99 [facility] Comment on above: Result Comment: Canc elled via OM: Order cancelled - Patient discharged Performed By: #### L 100.0100, L500.2500 ####[facility] [address] [place], [address] Potassium Normal 3.3-5.1 [facility] Comment on above: Result Comment: Canc elled via OM: Order cancelled - Patient discharged Performed By: #### L 100.0100, L500.2500 ####[facility] [address] [place], [address] Basic Metabolic Profile (BMP) Normal 133-145 [facility] Comment on above: Result Comment: Canc elled via OM: Order cancelled - Patient discharged Performed By: #### L 100.0100, L500.2500 ####[facility] [address] [place], [address] CBC W/Diff, Automatedon 08-0 5-2024 Absolute Neut Normal 2.0-7.7 [facility] Comment on above: Result Comment: Canc elled via OM: Order cancelled - Patient discharged Performed By: #### L 100.0100, L500.2500 ####[facility] [address] [place], [address] HCT Normal 40-54 [facility] Comment on above: Result Comment: Canc elled via OM: Order cancelled - Patient discharged Performed By: #### L 100.0100, L500.2500 ####[facility] [address] [place], [address] HGB Normal 13.0-16.5 [facility] Comment on above: Result Comment: Canc elled via OM: Order cancelled - Patient discharged Performed By: #### L 100.0100, L500.2500 ####[facility] [address] [place], [address] MCH Normal 27.0-32.0 [facility] Comment on above: Result Comment: Canc elled via OM: Order cancelled - Patient discharged Performed By: #### L 100.0100, L500.2500 ####[facility] [address] [place], [address] MCHC Normal 32-36 [facility] Comment on above: Result Comment: Canc elled via OM: Order cancelled - Patient discharged Performed By: #### L 100.0100, L500.2500 ####[facility] [address] [place], [address] MCV Normal 80-94 [facility] Comment on above: Result Comment: Canc elled via OM: Order cancelled - Patient discharged Performed By: #### L 100.0100, L500.2500 ####[facility] [address] [place], [address] NEUT% Normal 47-70 [facility] Comment on above: Result Comment: Canc elled via OM: Order cancelled - Patient discharged Performed By: #### L 100.0100, L500.2500 ####[facility] [address] [place], [address] PLT Normal 150-450 [facility] Comment on above: Result Comment: Canc elled via OM: Order cancelled - Patient discharged Performed By: #### L 100.0100, L500.2500 ####[facility] [address] [place], [address] RBC Normal 4.6-6.2 [facility] Comment on above: Result Comment: Canc elled via OM: Order cancelled - Patient discharged Performed By: #### L 100.0100, L500.2500 ####[facility] [address] [place], [address] RDW CV Normal 11.6-14.6 [facility] Comment on above: Result Comment: Canc elled via OM: Order cancelled - Patient discharged Performed By: #### L 100.0100, L500.2500 ####[facility] [address] [place], [address] RDW SD Normal 35.1-43.9 [facility] Comment on above: Result Comment: Canc elled via OM: Order cancelled - Patient discharged Performed By: #### L 100.0100, L500.2500 ####[facility] [address] [place], [address] WBC Normal 4.4-11.0 [facility] Comment on above: Result Comment: Canc elled via OM: Order cancelled - Patient discharged Performed By: #### L 100.0100, L500.2500 ####[facility] [address] [place], [address] Basic Metabolic Profile (BMP )on 12-30-2024 BUN Normal 4-19 [facility] Comment on above: Result Comment: Canc elled via OM: Order cancelled - Patient discharged Performed By: #### L 100.0100, L500.2500 ####[facility] [address] [place], [address] BUN/CRE Normal 10-20 [facility] Comment on above: Result Comment: Canc elled via OM: Order cancelled - Patient discharged Performed By: #### L 100.0100, L500.2500 ####[facility] [address] [place], [address] Calcium Normal 7.6-11.0 [facility] Comment on above: Result Comment: Canc elled via OM: Order cancelled - Patient discharged Performed By: #### L 100.0100, L500.2500 ####[facility] [address] [place], [address] CL Normal 98-108 [facility] Comment on above: Result Comment: Canc elled via OM: Order cancelled - Patient discharged Performed By: #### L 100.0100, L500.2500 ####[facility] [address] [place], [address] CO2 Normal 21.0-32.0 [facility] Comment on above: Result Comment: Canc elled via OM: Order cancelled - Patient discharged Performed By: #### L 100.0100, L500.2500 ####[facility] [address] [place], [address] CREAT,SERUM Normal 0.70-1.20 [facility] Comment on above: Result Comment: Canc elled via OM: Order cancelled - Patient discharged Performed By: #### L 100.0100, L500.2500 ####[facility] [address] [place], [address] eGFR Normal >60 [facility] Comment on above: Result Comment: Canc elled via OM: Order cancelled - Patient discharged Performed By: #### L 100.0100, L500.2500 ####[facility] [address] [place], [address] GAP Normal 5-15 [facility] Comment on above: Result Comment: Canc elled via OM: Order cancelled - Patient discharged Performed By: #### L 100.0100, L500.2500 ####[facility] [address] [place], [address] GLU Normal 70-99 [facility] Comment on above: Result Comment: Canc elled via OM: Order cancelled - Patient discharged Performed By: #### L 100.0100, L500.2500 ####[facility] [address] [place], [address] Potassium Normal 3.3-5.1 [facility] Comment on above: Result Comment: Canc elled via OM: Order cancelled - Patient discharged Performed By: #### L 100.0100, L500.2500 ####[facility] [address], [address] Basic Metabolic Profile (BMP) Normal 133-145 [facility] Comment on above: Result Comment: Canc elled via OM: Order cancelled - Patient discharged Performed By: #### L 100.0100, L500.2500 ####[facility] [address] [place], [address] CBC W/Diff, Automatedon 08-0 -2024 Absolute Neut Normal 2.0-7.7 [facility] Comment on above: Result Comment: Canc elled via OM: Order cancelled - Patient discharged Performed By: #### L 100.0100, L500.2500 ####[facility] [address] [place], [address] HCT Normal 40-54 [facility] Comment on above: Result Comment: Canc elled via OM: Order cancelled - Patient discharged Performed By: #### L 100.0100, L500.2500 ####[facility] [address] [place], [address] HGB Normal 13.0-16.5 [facility] Comment on above: Result Comment: Canc elled via OM: Order cancelled - Patient discharged Performed By: #### L 100.0100, L500.2500 ####[facility] [address] [place], [address] MCH Normal 27.0-32.0 [facility] Comment on above: Result Comment: Canc elled via OM: Order cancelled - Patient discharged Performed By: #### L 100.0100, L500.2500 ####[facility] [address] [place], [address] MCHC Normal 32-36 [facility] Comment on above: Result Comment: Canc elled via OM: Order cancelled - Patient discharged Performed By: #### L 100.0100, L500.2500 ####[facility] [address] [place], [address] MCV Normal 80-94 [facility] Comment on above: Result Comment: Canc elled via OM: Order cancelled - Patient discharged Performed By: #### L 100.0100, L500.2500 ####[facility] [address] [place], [address] NEUT% Normal 47-70 [facility] Comment on above: Result Comment: Canc elled via OM: Order cancelled - Patient discharged Performed By: #### L 100.0100, L500.2500 ####[facility] [address] [place], [address] PLT Normal 150-450 [facility] Comment on above: Result Comment: Canc elled via OM: Order cancelled - Patient discharged Performed By: #### L 100.0100, L500.2500 ####[facility] [address] [place], [address] RBC Normal 4.6-6.2 [facility] Comment on above: Result Comment: Canc elled via OM: Order cancelled - Patient discharged Performed By: #### L 100.0100, L500.2500 ####[facility] [address] [place], [address] RDW CV Normal 11.6-14.6 [facility] Comment on above: Result Comment: Canc elled via OM: Order cancelled - Patient discharged Performed By: #### L 100.0100, L500.2500 ####[facility] [address] [place], [address] RDW SD Normal 35.1-43.9 [facility] Comment on above: Result Comment: Canc elled via OM: Order cancelled - Patient discharged Performed By: #### L 100.0100, L500.2500 ####[facility] [address] [place], [address] WBC Normal 4.4-11.0 [facility] Comment on above: Result Comment: Canc elled via OM: Order cancelled - Patient discharged Performed By: #### L 100.0100, L500.2500 ####[facility] [address] [place], [address] Absolute lymphocyte countOrd ered By: Tricia Carvalho on 12-29-2024 Lymphocytes Auto (Unsp spec) [#/Vol] 0.77 10*3/uL Low 0.83-4.51 [facility] Absolute neutrophil countOrd ered By: Tricia Carvalho on 12-29-2024 Neutrophils (Bld) [#/Vol] 2.5 10*3/uL 2.0-7.7 [facility] Anion gap in Serum or Plasma Ordered By: Tricia Carvalho on 12-29-2024 Anion gap [Moles/Vol] 9 mmol/L 5-15 [facility] Automated lymphocyte count a s percentage of total leukocytesOrdered By: Tricia Carvalho on 12-29-2024 Lymphocytes/100 WBC Auto (Unsp spec) 20.3 % - [facility] BUN/creatinine ratioOrdered By: Tricia Carvalho on 12-29-2024 Urea nitrogen/Creatinine [Mass ratio] 11.1 mg/mg - [facility] Basic Metabolic Profile (BMP )on 12-29-2024 BUN/CRE 11.1 RATIO Normal - [facility] Comment on above: Performed By: #### L 500.2500, L100.0100 ####[facility] [address] [place], [address] Calcium [Mass/Vol] 8.8 mg/dL Normal 7.6-11.0 [facility] Comment on above: Performed By: #### L 500.2500, L100.0100 ####[facility] [address] [place], [address] Chloride [Moles/Vol] 103 mmol/L Normal 98-108 [facility] Comment on above: Performed By: #### L 500.2500, L100.0100 ####[facility] [address] [place], [address] CO2 [Moles/Vol] 25.3 mmol/L Normal 21.0-32.0 [facility] Comment on above: Performed By: #### L 500.2500, L100.0100 ####[facility] [address] [place], [address] Creatinine [Mass/Vol] 0.71 mg/dL Normal 0.70-1.20 [facility] Comment on above: Performed By: #### L 500.2500, L100.0100 ####[facility] [address] [place], [address] ECRCL 168.59 ml/min Normal 50-250 [facility] Comment on above: Performed By: #### L 500.2500, L100.0100 ####[facility] [address] [place], [address] GAP 9 Normal 5-15 [facility] Comment on above: Performed By: #### L 500.2500, L100.0100 ####[facility] [address] [place], [address] GFR/1.73 sq M.predicted among non-blacks MDRD (S/P/Bld) [Vol rate/Area] 110 mL/min/{1.73_m2} Normal >60 [facility] Comment on above: Result Comment: mL/m in/1.73m2 CKD-EPI Creatinine Equation (2020) Performed By: #### L 500.2500, L100.0100 ####[facility] [address] [place], [address] Glucose [Mass/Vol] 147 mg/dL High 70-99 [facility] Comment on above: Performed By: #### L 500.2500, L100.0100 ####[facility] [address] [place], [address] Potassium [Moles/Vol] 4.0 mmol/L Normal 3.3-5.1 [facility] Comment on above: Result Comment: Hemo lysis present, Results??could be affected.?? Performed By: #### L 500.2500, L100.0100 ####[facility] [address] [place], [address] Sodium [Moles/Vol] 138 mmol/L Normal 133-145 [facility] Comment on above: Performed By: #### L 500.2500, L100.0100 ####[facility] [address] [place], [address] Urea nitrogen [Mass/Vol] 8 mg/dL Normal 4-19 [facility] Comment on above: Performed By: #### L 500.2500, L100.0100 ####[facility] [address] [place], [address] Basophil percentageOrdered B y: Tricia Carvalho on 12-29-2024 Basophils/100 WBC (Bld) 0.5 % 0-1 [facility] Bedside Glucoseon 12-29-2024 FINGERSTICK GLU 205 mg/dL High 74-106 [facility] Comment on above: Result Comment: STEPHANIE GEMENT OF PATIENT CARE PER NURSING PROTOCOL Performed By: #### L 501.080 ####[facility] [address] [place], [address] FINGERSTICK GLU 144 mg/dL High 74-106 [facility] Comment on above: Result Comment: STEPHANIE GEMENT OF PATIENT CARE PER NURSING PROTOCOL Performed By: #### L 501.080 ####[facility] [address], [address] CBC W/Diff, Automatedon 08-0 5 Absolute Lymph 0.77 X10 3/uL Low 0.83-4.51 [facility] Comment on above: Performed By: #### L 500.2500, L100.0100 ####[facility] [address], [address] Absolute Neut 2.5 X10 3/uL Normal 2.0-7.7 [facility] Comment on above: Performed By: #### L 500.2500, L100.0100 ####[facility] [address] [place], [address] Basophils/100 WBC (Bld) 0.5 % Normal 0-1 [facility] Comment on above: Performed By: #### L 500.2500, L100.0100 ####[facility] [address] [place], [address] Eosinophils/100 WBC (Bld) 2.4 % Normal 0-5 [facility] Comment on above: Performed By: #### L 500.2500, L100.0100 ####[facility] [address] [place], [address] Erythrocyte distribution width (RBC) [Ratio] 13.6 % Normal 11.6-14.6 [facility] Comment on above: Performed By: #### L 500.2500, L100.0100 ####[facility] [address] [place], [address] Hematocrit (Bld) [Volume fraction] 40.2 % Normal 40-54 [facility] Comment on above: Performed By: #### L 500.2500, L100.0100 ####[facility] [address], [address] Hemoglobin (Bld) [Mass/Vol] 12.5 g/dL Low 13.0-16.5 [facility] Comment on above: Performed By: #### L 500.2500, L100.0100 ####[facility] [address] [place], [address] IG% 0.300 Normal 0.0-0.9 [facility] Comment on above: Result Comment: IG% - Immature Granulocytes (promyelocytes, myelocytes andmetamyelocytes) > 1% indicates that a LEFT SHIFT is Present. Performed By: #### L 500.2500, L100.0100 ####[facility] [address] [place], [address] Lymphocytes/100 WBC (Bld) 20.3 % Normal 19-41 [facility] Comment on above: Performed By: #### L 500.2500, L100.0100 ####[facility] [address] [place], [address] MCH (RBC) [Entitic mass] 26.9 pg Low 27.0-32.0 [facility] Comment on above: Performed By: #### L 500.2500, L100.0100 ####[facility] [address] [place], [address] MCHC (RBC) [Mass/Vol] 31.1 g/dL Low 32-36 [facility] Comment on above: Performed By: #### L 500.2500, L100.0100 ####[facility] [address] [place], [address] MCV (RBC) [Entitic vol] 86.5 fL Normal 80-94 [facility] Comment on above: Performed By: #### L 500.2500, L100.0100 ####[facility] [address] [place], [address] Monocytes/100 WBC (Bld) 11.3 % High 0-10 [facility] Comment on above: Performed By: #### L 500.2500, L100.0100 ####[facility] [address] [place], [address] Neutrophils/100 WBC (Bld) 65.2 % Normal 47-70 [facility] Comment on above: Performed By: #### L 500.2500, L100.0100 ####[facility] [address] [place], [address] Nucleated RBC (Bld) [#/Vol] 0 10*3/uL Normal 0-5 [facility] Comment on above: Performed By: #### L 500.2500, L100.0100 ####[facility] [address] [place], [address] Platelet mean volume (Bld) [Entitic vol] 9.5 fL Normal 6.2-12.0 [facility] Comment on above: Performed By: #### L 500.2500, L100.0100 ####[facility] [address] [place], [address] Platelets (Bld) [#/Vol] 127 10*3/uL Low 150-450 [facility] Comment on above: Performed By: #### L 500.2500, L100.0100 ####[facility] [address] [place], [address] RBC (Bld) [#/Vol] 4.65 10*6/uL Normal 4.6-6.2 [facility] Comment on above: Performed By: #### L 500.2500, L100.0100 ####[facility] [address] [place], [address] RDW SD 43.1 fl Normal 35.1-43.9 [facility] Comment on above: Performed By: #### L 500.2500, L100.0100 ####[facility] [address] [place], [address] WBC (Bld) [#/Vol] 3.8 10*3/uL Low 4.4-11.0 [facility] Comment on above: Performed By: #### L 500.2500, L100.0100 ####[facility] [address] [place], [address] Carbon dioxide, total [Moles /volume] in Central venous bloodOrdered By: Tricia Carvalho on 12-29-2024 CO2 [Moles/Vol] 25.3 mmol/L 21.0-32.0 [facility] Chloride assayOrdered By: Na na Deven on 12-29-2024 Chloride [Moles/Vol] 103 mmol/L 98-108 [facility] Eosinophil percentageOrdered By: Tricia Carvalho on 12-29-2024 Eosinophils/100 WBC (Bld) 2.4 % 0-5 [facility] Erythrocyte distribution wid th ratioOrdered By: Tricia Carvalho on 12-29-2024 Erythrocyte distribution width (RBC) [Ratio] 13.6 % 11.6-14.6 [facility] Erythrocyte distribution wid th standard deviationOrdered By: Tricia Carvalho on 12-29-2024 Erythrocyte distribution width (RBC) [Ratio] 43.1 fl 35.1-43.9 [facility] Glomerular filtration rate ( GFR) estimation/1.73 sq m using serum, plasma, or whole bOrdered By: Tricia Carvalho on 12-29-2024 GFR/1.73 sq M.predicted among non-blacks MDRD (S/P/Bld) [Vol rate/Area] 110 mL/min/{1.73_m2} >60 [facility] Comment on above: mL/min/1.73m2 CKD-EP I Creatinine Equation (2020) Glucose measurement at bedsi deOrdered By: Tricia Carvalho on 12-29-2024 Glucose [Mass/Vol] 144 mg/dL High 74-106 [facility] Comment on above: MANAGEMENT OF PATIEN T CARE PER NURSING PROTOCOL Hematocrit Auto (Bld) [Volum e fraction]Ordered By: Tricia Carvalho on 12-29-2024 Hematocrit (Bld) [Volume fraction] 40.2 % 40-54 [facility] Hemoglobin measurementOrdere d By: Tricia Carvalho on 12-29-2024 Hemoglobin (Bld) [Mass/Vol] 12.5 g/dL Low 13.0-16.5 [facility] Immature granulocytes/100 WB C Auto (Bld)Ordered By: Tricia Carvalho on 12-29-2024 Immature granulocytes/100 WBC (Bld) 0.300 % 0.0-0.9 [facility] Comment on above: IG% - Immature Granu locytes (promyelocytes, myelocytes and metamyelocytes) > 1% indicates that a LEFT SHIFT is Present. MCV (mean corpuscular volume ) determinationOrdered By: Tricia Carvalho on 12-29-2024 MCV (RBC) [Entitic vol] 86.5 fL 80-94 [facility] Mean corpuscular hemoglobin (MCH) determinationOrdered By: Tricia Carvalho on 12-29-2024 MCH (RBC) [Entitic mass] 26.9 pg Low 27.0-32.0 [facility] Mean corpuscular hemoglobin concentration (MCHC) determinationOrdered By: Tricia Carvalho on 12-29-2024 MCHC (RBC) [Mass/Vol] 31.1 g/dL Low 32-36 [facility] Mean platelet volume determi nationOrdered By: Tricia Carvalho on 12-29-2024 Platelet mean volume (Bld) [Entitic vol] 9.5 fL 6.2-12.0 [facility] Monocyte percentageOrdered B y: Tricia Carvalho on 12-29-2024 Monocytes/100 WBC (Bld) 11.3 % High 0-10 [facility] Neutrophil percentageOrdered By: Tricia Carvalho on 12-29-2024 Neutrophils/100 WBC (Bld) 65.2 % 47-70 [facility] Nucleated red blood cell per centageOrdered By: Tricia Carvalho on 12-29-2024 Nucleated RBC/100 WBC (Bld) [Ratio] 0 % 0-5 [facility] Platelet countOrdered By: Niesha Carvalho on 12-29-2024 Platelets (Bld) [#/Vol] 127 10*3/uL Low 150-450 [facility] Potassium measurement (mass/ volume)Ordered By: Tricia Carvalho on 12-29-2024 Potassium (Unsp spec) [Mass/Vol] 4.0 mmol/L 3.3-5.1 [facility] Comment on above: Hemolysis present, R esults could be affected. RBC Auto (Bld) [#/Vol]Ordere d By: Tricia Carvalho on 12-29-2024 RBC (Bld) [#/Vol] 4.65 10*6/uL 4.6-6.2 [facility] Serum creatinine measurement (mass/volume)Ordered By: Tricia Carvalho on 12-29-2024 Creatinine [Mass/Vol] 0.71 mg/dL 0.70-1.20 [facility] Serum glucose measurement (m ass/volume)Ordered By: Tricia Carvalho on 12-29-2024 Glucose [Mass/Vol] 147 mg/dL High 70-99 [facility] Serum or plasma calcium scott urement (mass/volume)Ordered By: Tricia Carvalho on 12-29-2024 Calcium [Mass/Vol] 8.8 mg/dL 7.6-11.0 [facility] Serum or plasma urea nitroge n measurement (mass/volume)Ordered By: Tricia Carvalho on 12-29-2024 Urea nitrogen [Mass/Vol] 8 mg/dL 4-19 [facility] Sodium levelOrdered By: Triciachuck Carvalho on 12-29-2024 Sodium [Moles/Vol] 138 mmol/L 133-145 [facility] White blood cell (WBC) count Ordered By: Tricia Carvalho on 12-29-2024 WBC (Bld) [#/Vol] 3.8 10*3/uL Low 4.4-11.0 [facility] Basic Metabolic Profile (BMP )on 12-28-2024 BUN/CRE 10.9 RATIO Normal 10-20 [facility] Comment on above: Performed By: #### L 100.0100, L300.4310, L500.2500, L300.3900 ####[facility] [address] [place], [place], [id number] Calcium [Mass/Vol] 8.7 mg/dL Normal 7.6-11.0 [facility] Comment on above: Performed By: #### L 100.0100, L300.4310, L500.2500, L300.3900 ####[facility] [address] [place], [address] Chloride [Moles/Vol] 101 mmol/L Normal 98-108 [facility] Comment on above: Performed By: #### L 100.0100, L300.4310, L500.2500, L300.3900 ####[facility] [address] [place], [address] CO2 [Moles/Vol] 26.0 mmol/L Normal 21.0-32.0 [facility] Comment on above: Performed By: #### L 100.0100, L300.4310, L500.2500, L300.3900 ####[facility] [address] [place], [address] Creatinine [Mass/Vol] 0.79 mg/dL Normal 0.70-1.20 [facility] Comment on above: Performed By: #### L 100.0100, L300.4310, L500.2500, L300.3900 ####[facility] [address] [place], [address] ECRCL 152.63 ml/min Normal 50-250 [facility] Comment on above: Performed By: #### L 100.0100, L300.4310, L500.2500, L300.3900 ####[facility] [address] [place], [address] GAP 9 Normal 5-15 [facility] Comment on above: Performed By: #### L 100.0100, L300.4310, L500.2500, L300.3900 ####[facility] [address] [place], [address] GFR/1.73 sq M.predicted among non-blacks MDRD (S/P/Bld) [Vol rate/Area] 106 mL/min/{1.73_m2} Normal >60 [facility] Comment on above: Result Comment: mL/m in/1.73m2 CKD-EPI Creatinine Equation (2020) Performed By: #### L 100.0100, L300.4310, L500.2500, L300.3900 ####[facility] [address] [place], [address] Glucose [Mass/Vol] 167 mg/dL High 70-99 [facility] Comment on above: Performed By: #### L 100.0100, L300.4310, L500.2500, L300.3900 ####[facility] [address] [place], [address] Potassium [Moles/Vol] 3.7 mmol/L Normal 3.3-5.1 [facility] Comment on above: Performed By: #### L 100.0100, L300.4310, L500.2500, L300.3900 ####[facility] [address] [place], [address] Sodium [Moles/Vol] 136 mmol/L Normal 133-145 [facility] Comment on above: Performed By: #### L 100.0100, L300.4310, L500.2500, L300.3900 ####[facility] [address] [place], [address] Urea nitrogen [Mass/Vol] 9 mg/dL Normal 4-19 [facility] Comment on above: Performed By: #### L 100.0100, L300.4310, L500.2500, L300.3900 ####[facility] [address] [place], [address] Bedside Glucoseon 12-28-2024 FINGERSTICK GLU 205 mg/dL High 74-106 [facility] Comment on above: Result Comment: STEPHANIE ATKINSON OF PATIENT CARE PER NURSING PROTOCOL Performed By: #### L 501.080 ####[facility] [address] [place], [address] FINGERSTICK GLU 121 mg/dL High 74-106 [facility] Comment on above: Result Comment: STEPHANIE GEMENT OF PATIENT CARE PER NURSING PROTOCOL Performed By: #### L 501.080 ####[facility] [address] [place], [address] FINGERSTICK GLU 146 mg/dL High 74-106 [facility] Comment on above: Result Comment: STEPHANIE GEMENT OF PATIENT CARE PER NURSING PROTOCOL Performed By: #### L 501.080 ####[facility] [address] [place], [address] FINGERSTICK GLU 141 mg/dL High 74-106 [facility] Comment on above: Result Comment: STEPHANIE GEMENT OF PATIENT CARE PER NURSING PROTOCOL Performed By: #### L 501.080 ####[facility] [address] [place], [address] Bilirubin Test strip Ql (U)O rdered By: Nguyễn Al on 12-28-2024 Bilirubin Ql (U) Negative Negative [facility] Bilirubin, totalOrdered By: Keagan Delgado on 12-28-2024 Bilirubin [Mass/Vol] 0.30 mg/dL 0.00-1.30 [facility] CBC W/Diff, Automatedon 08-0 Absolute Lymph 1.13 X10 3/uL Normal 0.83-4.51 [facility] Comment on above: Performed By: #### L 501.2300, L100.0100 ####[facility] [address] [place], [address] Absolute Neut 3.7 X10 3/uL Normal 2.0-7.7 [facility] Comment on above: Performed By: #### L 501.2300, L100.0100 ####[facility] [address] [place], [address] Basophils/100 WBC (Bld) 1.1 % High 0-1 [facility] Comment on above: Performed By: #### L 501.2300, L100.0100 ####[facility] [address] [place], [address] Eosinophils/100 WBC (Bld) 1.8 % Normal 0-5 [facility] Comment on above: Performed By: #### L 501.2300, L100.0100 ####[facility] [address] [place], [address] Erythrocyte distribution width (RBC) [Ratio] 13.4 % Normal 11.6-14.6 [facility] Comment on above: Performed By: #### L 501.2300, L100.0100 ####[facility] [address] [place], [address] Hematocrit (Bld) [Volume fraction] 45.1 % Normal 40-54 [facility] Comment on above: Performed By: #### L 501.2300, L100.0100 ####[facility] [address] [place], [address] Hemoglobin (Bld) [Mass/Vol] 14.2 g/dL Normal 13.0-16.5 [facility] Comment on above: Performed By: #### L 501.2300, L100.0100 ####[facility] [address] [place], [address] IG% 0.400 Normal 0.0-0.9 [facility] Comment on above: Result Comment: IG% - Immature Granulocytes (promyelocytes, myelocytes andmetamyelocytes) > 1% indicates that a LEFT SHIFT is Present. Performed By: #### L 501.2300, L100.0100 ####[facility] [address] [place], [address] Lymphocytes/100 WBC (Bld) 19.9 % Normal 19-41 [facility] Comment on above: Performed By: #### L 501.2300, L100.0100 ####[facility] [address] [place], [address] MCH (RBC) [Entitic mass] 26.9 pg Low 27.0-32.0 [facility] Comment on above: Performed By: #### L 501.2300, L100.0100 ####[facility] [address] [place], [address] MCHC (RBC) [Mass/Vol] 31.5 g/dL Low 32-36 [facility] Comment on above: Performed By: #### L 501.2300, L100.0100 ####[facility] [address] [place], [address] MCV (RBC) [Entitic vol] 85.6 fL Normal 80-94 [facility] Comment on above: Performed By: #### L 501.2300, L100.0100 ####[facility] [address], [address] Monocytes/100 WBC (Bld) 11.6 % High 0-10 [facility] Comment on above: Performed By: #### L 501.2300, L100.0100 ####[facility] [address] [place], [address] Neutrophils/100 WBC (Bld) 65.2 % Normal 47-70 [facility] Comment on above: Performed By: #### L 501.2300, L100.0100 ####[facility] [address] [place], [address] Nucleated RBC (Bld) [#/Vol] 0 10*3/uL Normal 0-5 [facility] Comment on above: Performed By: #### L 501.2300, L100.0100 ####[facility] [address] [place], [address] Platelet mean volume (Bld) [Entitic vol] 10.1 fL Normal 6.2-12.0 [facility] Comment on above: Performed By: #### L 501.2300, L100.0100 ####[facility] [address] [place], [address] Platelets (Bld) [#/Vol] 150 10*3/uL Normal 150-450 [facility] Comment on above: Performed By: #### L 501.2300, L100.0100 ####[facility] [address] [place], [address] RBC (Bld) [#/Vol] 5.27 10*6/uL Normal 4.6-6.2 [facility] Comment on above: Performed By: #### L 501.2300, L100.0100 ####[facility] [address] [place], [address] RDW SD 42.1 fl Normal 35.1-43.9 [facility] Comment on above: Performed By: #### L 501.2300, L100.0100 ####[facility] [address] [place], [address] WBC (Bld) [#/Vol] 5.7 10*3/uL Normal 4.4-11.0 [facility] Comment on above: Performed By: #### L 501.2300, L100.0100 ####[facility] [address] [place], [address] Absolute Lymph 1.04 X10 3/uL Normal 0.83-4.51 [facility] Comment on above: Performed By: #### L 100.0100, L300.4310, L500.2500, L300.3900 ####[facility] [address] [place], [address] Absolute Neut 4.1 X10 3/uL Normal 2.0-7.7 [facility] Comment on above: Performed By: #### L 100.0100, L300.4310, L500.2500, L300.3900 ####[facility] [address] [place], [address] Basophils/100 WBC (Bld) 0.7 % Normal 0-1 [facility] Comment on above: Performed By: #### L 100.0100, L300.4310, L500.2500, L300.3900 ####[facility] [address] [place], [address] Eosinophils/100 WBC (Bld) 1.3 % Normal 0-5 [facility] Comment on above: Performed By: #### L 100.0100, L300.4310, L500.2500, L300.3900 ####[facility] [address] [place], [address] Erythrocyte distribution width (RBC) [Ratio] 13.4 % Normal 11.6-14.6 [facility] Comment on above: Performed By: #### L 100.0100, L300.4310, L500.2500, L300.3900 ####[facility] [address] [place], [address] Hematocrit (Bld) [Volume fraction] 42.7 % Normal 40-54 [facility] Comment on above: Performed By: #### L 100.0100, L300.4310, L500.2500, L300.3900 ####[facility] [address] [place], [address] Hemoglobin (Bld) [Mass/Vol] 13.6 g/dL Normal 13.0-16.5 [facility] Comment on above: Performed By: #### L 100.0100, L300.4310, L500.2500, L300.3900 ####[facility] [address] [place], [address] IG% 0.500 Normal 0.0-0.9 [facility] Comment on above: Result Comment: IG% - Immature Granulocytes (promyelocytes, myelocytes andmetamyelocytes) > 1% indicates that a LEFT SHIFT is Present. Performed By: #### L 100.0100, L300.4310, L500.2500, L300.3900 ####[facility] [address] [place], [address] Lymphocytes/100 WBC (Bld) 17.2 % Low 19-41 [facility] Comment on above: Performed By: #### L 100.0100, L300.4310, L500.2500, L300.3900 ####[facility] [address] [place], [address] MCH (RBC) [Entitic mass] 27.1 pg Normal 27.0-32.0 [facility] Comment on above: Performed By: #### L 100.0100, L300.4310, L500.2500, L300.3900 ####[facility] [address] [place], [address] MCHC (RBC) [Mass/Vol] 31.9 g/dL Low 32-36 [facility] Comment on above: Performed By: #### L 100.0100, L300.4310, L500.2500, L300.3900 ####[facility] [address] [place], [address] MCV (RBC) [Entitic vol] 85.1 fL Normal 80-94 [facility] Comment on above: Performed By: #### L 100.0100, L300.4310, L500.2500, L300.3900 ####[facility] [address] [place], [address] Monocytes/100 WBC (Bld) 11.8 % High 0-10 [facility] Comment on above: Performed By: #### L 100.0100, L300.4310, L500.2500, L300.3900 ####[facility] [address] [place], [address] Neutrophils/100 WBC (Bld) 68.5 % Normal 47-70 [facility] Comment on above: Performed By: #### L 100.0100, L300.4310, L500.2500, L300.3900 ####[facility] [address] [place], [address] Nucleated RBC (Bld) [#/Vol] 0 10*3/uL Normal 0-5 [facility] Comment on above: Performed By: #### L 100.0100, L300.4310, L500.2500, L300.3900 ####[facility] [address] [place], [address] Platelet mean volume (Bld) [Entitic vol] 10.3 fL Normal 6.2-12.0 [facility] Comment on above: Performed By: #### L 100.0100, L300.4310, L500.2500, L300.3900 ####[facility] [address] [place], [address] Platelets (Bld) [#/Vol] 146 10*3/uL Low 150-450 [facility] Comment on above: Performed By: #### L 100.0100, L300.4310, L500.2500, L300.3900 ####[facility] [address] [place], [address] RBC (Bld) [#/Vol] 5.02 10*6/uL Normal 4.6-6.2 [facility] Comment on above: Performed By: #### L 100.0100, L300.4310, L500.2500, L300.3900 ####[facility] [address] [place], [address] RDW SD 41.7 fl Normal 35.1-43.9 [facility] Comment on above: Performed By: #### L 100.0100, L300.4310, L500.2500, L300.3900 ####[facility] [address] [place], [address] WBC (Bld) [#/Vol] 6.0 10*3/uL Normal 4.4-11.0 [facility] Comment on above: Performed By: #### L 100.0100, L300.4310, L500.2500, L300.3900 ####[facility] [address] [place], [address] Comprehensive Metabolic Prof ilon 12-28-2024 Albumin [Mass/Vol] 3.5 g/dL Normal 3.5-5.0 [facility] Comment on above: Performed By: #### L 501.9520, L500.4050, L501.5200 ####[facility] [address], [address] Albumin/Globulin [Mass ratio] 1.1 {ratio} Normal 0.9-2.4 [facility] Comment on above: Performed By: #### L 501.9520, L500.4050, L501.5200 ####[facility] [address] [place], [address] ALK PHOS 77 U/L Normal 40-129 [facility] Comment on above: Performed By: #### L 501.9520, L500.4050, L501.5200 ####[facility] [address] [place], [address] ALT [Catalytic activity/Vol] 12 U/L Normal <=46 [facility] Comment on above: Performed By: #### L 501.9520, L500.4050, L501.5200 ####[facility] [address] [place], [address] AST [Catalytic activity/Vol] 23 U/L Normal <=37 [facility] Comment on above: Performed By: #### L 501.9520, L500.4050, L501.5200 ####[facility] [address] [place], [address] Bilirubin [Mass/Vol] 0.30 mg/dL Normal 0.00-1.30 [facility] Comment on above: Performed By: #### L 501.9520, L500.4050, L501.5200 ####[facility] [address] [place], [address] BUN/CRE 12.1 RATIO Normal 10-20 [facility] Comment on above: Performed By: #### L 501.9520, L500.4050, L501.5200 ####[facility] [address] [place], [address] Calcium [Mass/Vol] 8.6 mg/dL Normal 7.6-11.0 [facility] Comment on above: Performed By: #### L 501.9520, L500.4050, L501.5200 ####[facility] [address] [place], [address] Chloride [Moles/Vol] 102 mmol/L Normal 98-108 [facility] Comment on above: Performed By: #### L 501.9520, L500.4050, L501.5200 ####[facility] [address] [place], [address] CO2 [Moles/Vol] 25.5 mmol/L Normal 21.0-32.0 [facility] Comment on above: Performed By: #### L 501.9520, L500.4050, L501.5200 ####[facility] [address] [place], [address] Creatinine [Mass/Vol] 0.77 mg/dL Normal 0.70-1.20 [facility] Comment on above: Performed By: #### L 501.9520, L500.4050, L501.5200 ####[facility] [address] [place], [address] ECRCL 155.83 ml/min Normal 50-250 [facility] Comment on above: Performed By: #### L 501.9520, L500.4050, L501.5200 ####[facility] [address] [place], [address] GAP 10 Normal 5-15 [facility] Comment on above: Performed By: #### L 501.9520, L500.4050, L501.5200 ####[facility] [address] [place], [address] GFR/1.73 sq M.predicted among non-blacks MDRD (S/P/Bld) [Vol rate/Area] 107 mL/min/{1.73_m2} Normal >60 [facility] Comment on above: Result Comment: mL/m in/1.73m2 CKD-EPI Creatinine Equation (2020) Performed By: #### L 501.9520, L500.4050, L501.5200 ####[facility] [address] [place], [address] Globulin (S) [Mass/Vol] 3.3 g/dL Normal 2.2-4.2 [facility] Comment on above: Performed By: #### L 501.9520, L500.4050, L501.5200 ####[facility] [address] [place], [address] Glucose [Mass/Vol] 145 mg/dL High 70-99 [facility] Comment on above: Performed By: #### L 501.9520, L500.4050, L501.5200 ####[facility] [address] [place], [address] Potassium [Moles/Vol] 4.2 mmol/L Normal 3.3-5.1 [facility] Comment on above: Performed By: #### L 501.9520, L500.4050, L501.5200 ####[facility] [address] [place], [address] Sodium [Moles/Vol] 137 mmol/L Normal 133-145 [facility] Comment on above: Performed By: #### L 501.9520, L500.4050, L501.5200 ####[facility] [address] [place], [address] T PROT 6.7 g/dL Normal 5.9-8.4 [facility] Comment on above: Performed By: #### L 501.9520, L500.4050, L501.5200 ####[facility] [address] [place], [address] Urea nitrogen [Mass/Vol] 9 mg/dL Normal 4-19 [facility] Comment on above: Performed By: #### L 501.9520, L500.4050, L501.5200 ####[facility] [address] [place], [address] Consultation - Cardiologyon 12-28-2024 Consultation - Cardiology Normal [facility] Echo Complete W/ Contraston 12-28-2024 Echo Complete W/ Contrast Normal [facility] Echocardiogram study reportO rdered By: Gala Hewitt on 12-28-2024 Study report [facility] [address] [place] [address] Echo Complete W/ Contrast 12/28/24 0940 MR#: [id number] Acct: [id number] Name: CARLOS ALBERTO HOROWITZ Jr. Rep #:[id number] : 1970 54 From: Gala juares MD [...] Referring Physician: Jhonatan Garcia Performed By: Cristel Price, JEYSON, RVT 12/28/24 1237 Date _ Gala Hewitt MD CC: Dr. Keagan Rowe DO; Dr. Tricia Carvalho MD; Dr. Jhonatan Garcia DO ~ Date Dictated: 12/28/2440 Date Transcribed: 12/28/241236 Physician Non Invasive Cardiologist: Signed [facility] Other H AND P Exam - Hospitaliston 12-28-2024 H&P Exam - Hospitalist Normal [facility] Ketones Test strip Ql (U)Ord ered By: Nguyễn Al on 12-28-2024 Ketones Ql (U) Negative Negative [facility] L501.4021on 12-28-2024 Trop T High Sen 12 ng/L Normal <=22 [facility] Comment on above: Performed By: #### L 501.4021 ####[facility] [address] [facility] [place], [address] Laboratory - Chemistry and C hemistry - challengeOrdered By: Keagan Delgado on 12-28-2024 AST [Catalytic activity/Vol] 23 U/L <38 [facility] Magnesiumon 12-28-2024 Magnesium [Mass/Vol] 1.9 mg/dL Normal 1.5-2.2 [facility] Comment on above: Performed By: #### L 501.9520, L500.4050, L501.5200 ####[facility] [address] [facility] [place], [address] Magnesium measurement (mass/ volume)Ordered By: Keagan Delgado on 12-28-2024 Magnesium (Unsp spec) [Mass/Vol] 1.9 mg/dL 1.5-2.2 [facility] Microscopic analysis of urin e for red blood cells (RBC)Ordered By: Nguyễn Al on 12-28-2024 Microscopic analysis of urine for red blood cells (RBC) 0 SEEN /hpf 0-5 [facility] Mucus LM Ql (Urine sed)Order ed By: Nguyễn Al on 12-28-2024 Mucus Ql (Urine sed) 0 SEEN /hpf [facility] Nitrite Test strip Ql (U)Ord ered By: Nguyễn Al on 12-28-2024 Nitrite Ql (U) Negative Negative [facility] Phosphoruson 12-28-2024 Phosphate [Mass/Vol] 2.8 mg/dL Normal 2.7-4.5 [facility] Comment on above: Performed By: #### L 501.2300, L100.0100 ####[facility] [address] [place], [place], [address] Protein Test strip Ql (U)Ord ered By: Nguyễn Al on 12-28-2024 Protein Ql (U) 15 mg/dl High Negative [facility] Serum globulin measurementOr dered By: Keagan Delgado on 12-28-2024 Globulin (S) [Mass/Vol] 3.3 g/dL 2.2-4.2 [facility] Serum or plasma alanine linda otransferase (ALT) measurementOrdered By: Keagan Delgado on 12-28-2024 ALT [Catalytic activity/Vol] 12 U/L <47 [facility] Serum or plasma albumin scott urement (mass/volume)Ordered By: Keagan Delgado on 12-28-2024 Albumin [Mass/Vol] 3.5 g/dL 3.5-5.0 [facility] Serum or plasma albumin/glob ulin mass ratioOrdered By: Keagan Delgado on 12-28-2024 Albumin/Globulin [Mass ratio] 1.1 {ratio} 0.9-2.4 [facility] Serum or plasma alkaline kamaljit sphatase measurementOrdered By: Keagan Delgado on 12-28-2024 ALP [Catalytic activity/Vol] 77 U/L 40-129 [facility] Squamous epithelial cells de tection in urine sediment by light microscopyOrdered By: Nguyễn Al on 12-28-2024 Epithelial cells.squamous LM Ql (Urine sed) 0 SEEN /hpf 0-5 [facility] T4 Free Directon 12-28-2024 T4 FREE DIRECT 0.90 ng/dL Normal 0.76-1.46 [facility] Comment on above: Performed By: #### L 506.0400 ####[facility] [address] [place], [place], [id number] T4 freeOrdered By: Tricia izquierdo on 12-28-2024 Free T4 [Mass/Vol] 0.90 ng/dL 0.76-1.46 [facility] TSH DL <= 0.005 mIU/L QnOrde red By: Keagan Delgado on 12-28-2024 TSH Qn 5.130 uIU/mL High 0.300-4.200 [facility] Thyroid Stim Hormone (TSH)on 12-28-2024 TSH 5.130 uIU/mL High 0.300-4.200 [facility] Comment on above: Performed By: #### L 501.9520, L500.4050, L501.5200 ####[facility] [address] [facility] [id number] Total proteinOrdered By: Raudel Delgado on 12-28-2024 Protein [Mass/Vol] 6.7 g/dL 5.9-8.4 [facility] Troponin T HS 2 HRon 025 Trop T High Sen 13 ng/L Normal <=22 [facility] Comment on above: Performed By: #### L 499.0042 ####[facility] [address] [place], [place], [address] Troponin T HS 4 HRon 025 Trop T High Sen 11 ng/L Normal <=22 [facility] Comment on above: Performed By: #### L 499.0043 ####[facility] [address] [place], [place], [address] Troponin T.cardiac [Mass/vol ume] in Serum or Plasma by High sensitivity methodOrdered By: Keagan Delgado on 12-28-2024 Troponin T.cardiac High sensitivity method [Mass/Vol] 11 ng/L <22 [facility] Troponin T.cardiac High sensitivity method [Mass/Vol] 13 ng/L <22 [facility] Troponin T.cardiac High sensitivity method [Mass/Vol] 12 ng/L <22 [facility] Comment on above: Delta: 11 on Urinalysis, Completeon 12-28 BACTERIA 0 SEEN Normal None Seen [facility] Comment on above: Order Comment: CLEAN CATCH Performed By: #### L 400.0001 ####[facility] [address] [place], [address] EPI,SQUAMOUS 0 SEEN Normal 0-5 [facility] Comment on above: Order Comment: CLEAN CATCH Performed By: #### L 400.0001 ####[facility] [address] [place], [address] Mucus Ql (Urine sed) [address] [facility] Comment on above: Order Comment: CLEAN CATCH Performed By: #### L 400.0001 ####[facility] [address] [place], [address] RBC 0 SEEN Normal 0-5 [facility] Comment on above: Order Comment: CLEAN CATCH Performed By: #### L 400.0001 ####[facility] [address] [place], [address] WBC 0 SEEN Normal 0-[address] [place] [address] Comment on above: Order Comment: CLEAN CATCH Performed By: #### L 400.0001 ####[facility] [address] [place], [address] Urine clarityOrdered By: Shivam Al on 12-28-2024 Clarity (U) Clear Clear [facility] Urine color determinationOrd ered By: Nguyễn Al on 12-28-2024 Color (U) Straw Yellow [facility] Urine glucose detectionOrder ed By: Nguyễn Al on 12-28-2024 Glucose Ql (U) Normal mg/dl Normal [facility] Urine leukocyte esterase det ection by dipstickOrdered By: Nguyễn Al on 12-28-2024 Leukocyte esterase Test strip Ql (U) Negative Negative [facility] Urine pHOrdered By: Nguyễn Al on 12-28-2024 pH (U) 6.0 [pH] 5.0 - 8.0 [facility] Urine sediment bacteria coun t by microscopy (number/high power field)Ordered By: Nguyễn Al on 12-28-2024 Bacteria LM.HPF (Urine sed) [#/Area] 0 /[HPF] None Seen [facility] Urine specific gravity measu rementOrdered By: Nguyễn Al on 12-28-2024 Specific gravity (U) [Rel density] 1.015 1.002-1.030 [facility] Urine urobilinogen measureme ntOrdered By: Nguyễn Al on 12-28-2024 Urobilinogen Ql (U) Normal mg/dl Normal [facility] White blood cell countOrdere d By: Nguyễn Al on 12-28-2024 White blood cell count 0 SEEN /hpf 0-5 [facility] 12 Lead EKGon 12-27-2024 12 Lead EKG Normal [facility] Absolute lymphocyte countOrd ered By: Nguyễn Al on 12-27-2024 Lymphocytes Auto (Unsp spec) [#/Vol] 1.04 10*3/uL 0.83-4.51 [facility] Absolute neutrophil countOrd ered By: Nguyễn Al on 12-27-2024 Neutrophils (Bld) [#/Vol] 4.1 10*3/uL 2.0-7.7 [facility] Activated partial thrombopla stin time (aPTT) in platelet poor plasma by coagulation aOrdered By: Nguyễn Al on 12-27-2024 aPTT Coag (PPP) [Time] 28.4 s 24.1-36.2 [facility] Anion gap in Serum or Plasma Ordered By: Nguyễn Al on 12-27-2024 Anion gap [Moles/Vol] 9 mmol/L 5-15 [facility] Automated lymphocyte count a s percentage of total leukocytesOrdered By: Nguyễn Al on 12-27-2024 Lymphocytes/100 WBC Auto (Unsp spec) 17.2 % Low 19-41 [facility] BUN/creatinine ratioOrdered By: Nguyễn Al on 12-27-2024 Urea nitrogen/Creatinine [Mass ratio] 10.9 mg/mg 10-20 [facility] Basophil percentageOrdered B y: Nguyễn Al on 12-27-2024 Basophils/100 WBC (Bld) 0.7 % 0-1 [facility] Carbon dioxide, total [Moles /volume] in Central venous bloodOrdered By: Nguyễn Al on 12-27-2024 CO2 [Moles/Vol] 26.0 mmol/L 21.0-32.0 [facility] Chest 1 View (Portable)on Chest 1 View (Portable) Normal [facility] Chloride assayOrdered By: Shankar Al on 12-27-2024 Chloride [Moles/Vol] 101 mmol/L 98-108 [facility] Emergency Department Summary on 12-27-2024 Emergency Department Summary Normal [facility] Eosinophil percentageOrdered By: Nguyễn Al on 12-27-2024 Eosinophils/100 WBC (Bld) 1.3 % 0-5 [facility] Erythrocyte distribution wid th ratioOrdered By: Nguyễn Al on 12-27-2024 Erythrocyte distribution width (RBC) [Ratio] 13.4 % 11.6-14.6 [facility] Erythrocyte distribution wid th standard deviationOrdered By: Nguyễn Al on 12-27-2024 Erythrocyte distribution width (RBC) [Ratio] 41.7 fl 35.1-43.9 [facility] Glomerular filtration rate ( GFR) estimation/1.73 sq m using serum, plasma, or whole bOrdered By: Nguyễn Al on 12-27-2024 GFR/1.73 sq M.predicted among non-blacks MDRD (S/P/Bld) [Vol rate/Area] 106 mL/min/{1.73_m2} >60 [facility] Comment on above: mL/min/1.73m2 CKD-EP I Creatinine Equation (2020) Hematocrit Auto (Bld) [Volum e fraction]Ordered By: Nguyễn Al on 12-27-2024 Hematocrit (Bld) [Volume fraction] 42.7 % 40-54 [facility] Hemoglobin measurementOrdere d By: Nguyễn Al on 12-27-2024 Hemoglobin (Bld) [Mass/Vol] 13.6 g/dL 13.0-16.5 [facility] Immature granulocytes/100 WB C Auto (Bld)Ordered By: Nugyễn Al on 12-27-2024 Immature granulocytes/100 WBC (Bld) 0.500 % 0.0-0.9 [facility] Comment on above: IG% - Immature Granu locytes (promyelocytes, myelocytes and metamyelocytes) > 1% indicates that a LEFT SHIFT is Present. International normalized rat io (INR) calculationOrdered By: Nguyễn Al on 12-27-2024 INR Coag (Bld) [Relative time] 1.2 {INR} [facility] MCV (mean corpuscular volume ) determinationOrdered By: Nguyễn Al on 12-27-2024 MCV (RBC) [Entitic vol] 85.1 fL 80-94 [facility] Mean corpuscular hemoglobin (MCH) determinationOrdered By: Nguyễn Al on 12-27-2024 MCH (RBC) [Entitic mass] 27.1 pg 27.0-32.0 [facility] Mean corpuscular hemoglobin concentration (MCHC) determinationOrdered By: Nguyễn Al on 12-27-2024 MCHC (RBC) [Mass/Vol] 31.9 g/dL Low 32-36 [facility] Mean platelet volume determi nationOrdered By: Nguyễn Al on 12-27-2024 Platelet mean volume (Bld) [Entitic vol] 10.3 fL 6.2-12.0 [facility] Monocyte percentageOrdered B y: Nguyễn Al on 12-27-2024 Monocytes/100 WBC (Bld) 11.8 % High 0-10 [facility] Neutrophil percentageOrdered By: Nguyễn Al on 12-27-2024 Neutrophils/100 WBC (Bld) 68.5 % 47-70 [facility] Nucleated red blood cell per centageOrdered By: Nguyễn Al on 12-27-2024 Nucleated RBC/100 WBC (Bld) [Ratio] 0 % 0-5 [facility] Partial Thromboplast Timeon 12-27-2024 aPTT Coag (Bld) [Time] 28.4 s Normal 24.1-36.2 [facility] Comment on above: Performed By: #### L 100.0100, L300.4310, L500.2500, L300.3900 ####[facility] [address] [place], [address] Platelet countOrdered By: Shankar Al on 12-27-2024 Platelets (Bld) [#/Vol] 146 10*3/uL Low 150-450 [facility] Potassium measurement (mass/ volume)Ordered By: Nguyễn Al on 12-27-2024 Potassium (Unsp spec) [Mass/Vol] 3.7 mmol/L 3.3-5.1 [facility] Prothrombin Time w/INRon INR Coag (PPP) [Relative time] 1.2 {INR} Normal [facility] Comment on above: Performed By: #### L 100.0100, L300.4310, L500.2500, L300.3900 ####[facility] [address] [place], [address] PT Coag (PPP) [Time] 15.4 s High 11.7-14.9 [facility] Comment on above: Performed By: #### L 100.0100, L300.4310, L500.2500, L300.3900 ####[facility] [address] [place], [address] Prothrombin timeOrdered By: Nguyễn Al on 12-27-2024 PT Coag (PPP) [Time] 15.4 s High 11.7-14.9 [facility] RBC Auto (Bld) [#/Vol]Ordere d By: Nguyễn Al on 12-27-2024 RBC (Bld) [#/Vol] 5.02 10*6/uL 4.6-6.2 [facility] Serum creatinine measurement (mass/volume)Ordered By: Nguyễn Al on 12-27-2024 Creatinine [Mass/Vol] 0.79 mg/dL 0.70-1.20 [facility] Serum glucose measurement (m ass/volume)Ordered By: Nguyễn Al on 12-27-2024 Glucose [Mass/Vol] 167 mg/dL High 70-99 [facility] Serum or plasma calcium scott urement (mass/volume)Ordered By: Nguyễn Al on 12-27-2024 Calcium [Mass/Vol] 8.7 mg/dL 7.6-11.0 [facility] Serum or plasma urea nitroge n measurement (mass/volume)Ordered By: Nguyễn Al on 12-27-2024 Urea nitrogen [Mass/Vol] 9 mg/dL 4-19 [facility] Sodium levelOrdered By: Nguyễn Al on 12-27-2024 Sodium [Moles/Vol] 136 mmol/L 133-145 [facility] White blood cell (WBC) count Ordered By: Nguyễn Al on 12-27-2024 WBC (Bld) [#/Vol] 6.0 10*3/uL 4.4-11.0 [facility] .Auto Diffon 12-26-2024 Basophil, Absolute 0.0 10 3/mcL Normal 0.0-0.3 [facility] Comment on above: Performed By: #### C BC, MG, GFR, ADIFF, BMP, ANEU #### [address] [address] Basophils/100 WBC (Bld) 0.9 % Normal 0.0-2.5 [facility] Comment on above: Performed By: #### C BC, MG, GFR, ADIFF, BMP, ANEU #### [address] [address] Eosinophil, Absolute 0.1 10 3/mcL Normal 0.0-0.7 [facility] Comment on above: Performed By: #### C BC, MG, GFR, ADIFF, BMP, ANEU #### [address] [address] Eosinophils/100 WBC (Bld) 3.2 % Normal 0.0-6.0 [facility] Comment on above: Performed By: #### C BC, MG, GFR, ADIFF, BMP, ANEU #### [address] [address] Lymphocyte, Absolute 1.0 10 3/mcL Normal 0.9-4.3 [facility] Comment on above: Performed By: #### C BC, MG, GFR, ADIFF, BMP, ANEU #### [address] [address] Lymphocytes/100 WBC (Bld) 22.4 % Normal 20.0-40.0 [facility] [facility] Comment on above: Performed By: #### C BC, MG, GFR, ADIFF, BMP, ANEU #### [address] [address] Monocyte, Absolute 0.6 10 3/mcL Normal 0.1-1.4 [facility] MAIN Comment on above: Performed By: #### C BC, MG, GFR, ADIFF, BMP, ANEU #### [address] [address] Monocytes/100 WBC (Bld) 13.1 % High 2.0-13.0 [facility] MAIN Comment on above: Performed By: #### C BC, MG, GFR, ADIFF, BMP, ANEU #### [address] [address] Neutrophils/100 WBC (Bld) 60.4 % Normal 50.0-75.0 [facility] MAIN Comment on above: Performed By: #### C BC, MG, GFR, ADIFF, BMP, ANEU #### [address] [address] .GFRon 12-26-2024 Estimated Glomerular Filtration Rate 105 ml/min/1.73sqm Normal [facility] MAIN Comment on [...] BC, MG, GFR, ADIFF, BMP, ANEU #### [place] [id number] .NEUABSon 12-26-2024 Neutrophil, Absolute 2.6 10 3/mcL Normal 2.3-8.1 [facility] MAIN Comment on above: Performed By: #### C BC, MG, GFR, ADIFF, BMP, ANEU #### [address] [address] BMPon 12-26-2024 BUN/Creatinine Ratio 7.4 ratio Low 10.0-22.0 [facility] MAIN Comment on above: Performed By: #### C BC, MG, GFR, ADIFF, BMP, ANEU #### [place] [id number] Calcium [Mass/Vol] 9.1 mg/dL Normal 8.7-10.4 [facility] MAIN Comment on above: Performed By: #### C BC, MG, GFR, ADIFF, BMP, ANEU #### [place] [id number] Chloride [Moles/Vol] 104 mmol/L Normal 98-110 [facility] MAIN Comment on above: Performed By: #### C BC, MG, GFR, ADIFF, BMP, ANEU #### [address] [address] CO2 [Moles/Vol] 28 mmol/L Normal 22-32 [facility] MAIN Comment on above: Performed By: #### C BC, MG, GFR, ADIFF, BMP, ANEU #### [place] [id number] Creatinine [Mass/Vol] 0.81 mg/dL Normal 0.60-1.40 [facility] MAIN Comment on above: Result Comment: Test ing performed on Evgen analyzer using enzymatic creatinine methodology. Performed By: #### C BC, MG, GFR, ADIFF, BMP, ANEU #### [place] [id number] Electrolyte Balance 8.0 mEq/L Normal 4.0-15.0 [facility] MAIN Comment on above: Performed By: #### C BC, MG, GFR, ADIFF, BMP, ANEU #### [address] [address] Glucose [Mass/Vol] 151 mg/dL High 70-110 [facility] MAIN Comment on above: Performed By: #### C BC, MG, GFR, ADIFF, BMP, ANEU #### [place] [address] Potassium [Moles/Vol] 4.1 mmol/L Normal 3.5-5.0 [facility] MAIN Comment on above: Performed By: #### C BC, MG, GFR, ADIFF, BMP, ANEU #### [place] [address] Sodium [Moles/Vol] 140 mmol/L Normal 136-145 [facility] MAIN Comment on above: Performed By: #### C BC, MG, GFR, ADIFF, BMP, ANEU #### [place] [address] Urea nitrogen [Mass/Vol] 6.0 mg/dL Low 8.0-22.0 [facility] MAIN Comment on above: Performed By: #### C BC, MG, GFR, ADIFF, BMP, ANEU #### [place] [address] CBCon 12-26-2024 Erythrocyte distribution width (RBC) [Ratio] 14.7 % Normal 11.5-15.5 [facility] MAIN Comment on above: Performed By: #### C BC, MG, GFR, ADIFF, BMP, ANEU #### [place] [address] Hematocrit (Bld) [Volume fraction] 40.7 % Normal 40.0-52.0 [facility] MAIN Comment on above: Performed By: #### C BC, MG, GFR, ADIFF, BMP, ANEU #### [place] [id number] Hgb 13.2 G/dL Normal 13.0-17.5 [facility] MAIN Comment on above: Performed By: #### C BC, MG, GFR, ADIFF, BMP, ANEU #### [place] [address] MCH (RBC) [Entitic mass] 27.6 pg Normal 27.0-33.0 [facility] MAIN Comment on above: Performed By: #### C BC, MG, GFR, ADIFF, BMP, ANEU #### [place] [address] MCHC 32.3 G/dL Normal 32.0-36.0 [facility] MAIN Comment on above: Performed By: #### C BC, MG, GFR, ADIFF, BMP, ANEU #### [place] [address] MCV (RBC) [Entitic vol] 85.4 fL Normal 81.0-100.0 [facility] MAIN Comment on above: Performed By: #### C BC, MG, GFR, ADIFF, BMP, ANEU #### [place] [address] Platelet 148 10 3/mcL Low 150-450 [facility] MAIN Comment on above: Performed By: #### C BC, MG, GFR, ADIFF, BMP, ANEU #### [place] [address] Platelet mean volume (Bld) [Entitic vol] 8.2 fL Normal 6.4-10.5 [facility] MAIN Comment on above: Performed By: #### C BC, MG, GFR, ADIFF, BMP, ANEU #### [place] [address] RBC 4.77 10 6/mcL Normal 4.50-6.00 [facility] MAIN Comment on above: Performed By: #### C BC, MG, GFR, ADIFF, BMP, ANEU #### [place] [address] WBC 4.3 10 3/mcL Low 4.5-10.8 [facility] MAIN Comment on above: Performed By: #### C BC, MG, GFR, ADIFF, BMP, ANEU #### [place] [address] LABORATORYOrdered By: Armando domínguez on 12-26-2024 Glucose [Mass/Vol] 171 mg/dL High 70 - 110 mg/dL [facility] LABORATORYOrdered By: Jr Mac on 12-26-2024 Glucose [Mass/Vol] 167 mg/dL High 70 - 110 mg/dL [facility] Glucose [Mass/Vol] 121 mg/dL High 70 - 110 mg/dL [facility] LABORATORYOrdered By: SYSTEM SYSTEM on 12-26-2024 [...] above: Interpretive Data: T esting performed on Evgen analyzer using enzymatic creatinine methodology. Electrolyte Balance [...] 40.7 % Normal 40.0 - 52.0 % AH Workflow SS Hemoglobin (Bld) [Mass/Vol] 13.2 G/dL [...] 4.1 mmol/L Normal 3.5 - 5.0 mEq/L ADM SS RBC (Bld) [#/Vol] 4.77 106/mcL [...] 12-26-2024 Magnesium [Mass/Vol] 1.8 mg/dL Normal 1.6-2.4 [facility] MAIN Comment on above: Performed By: #### C BC, MG, GFR, ADIFF, BMP, ANEU #### [address] [address] .Auto Diffon 12-25-2024 Basophil, Absolute 0.0 10 3/mcL Normal 0.0-0.3 [facility] MAIN Comment on above: Performed By: #### A DIFF, ANEU, BMP, CBC, GFR #### [address] [address] Basophils/100 WBC (Bld) 0.6 % Normal 0.0-2.5 [facility] MAIN Comment on above: Performed By: #### A DIFF, ANEU, BMP, CBC, GFR #### [address] [address] Eosinophil, Absolute 0.1 10 3/mcL Normal 0.0-0.7 [facility] MAIN Comment on above: Performed By: #### A DIFF, ANEU, BMP, CBC, GFR #### [address] [address] Eosinophils/100 WBC (Bld) 2.2 % Normal 0.0-6.0 [facility] MAIN Comment on above: Performed By: #### A DIFF, ANEU, BMP, CBC, GFR #### [address] [address] Lymphocyte, Absolute 0.9 10 3/mcL Normal 0.9-4.3 [facility] MAIN Comment on above: Performed By: #### A DIFF, ANEU, BMP, CBC, GFR #### [address] [address] Lymphocytes/100 WBC (Bld) 14.1 % Low 20.0-40.0 [facility] MAIN Comment on above: Performed By: #### A DIFF, ANEU, BMP, CBC, GFR #### [address] [address] Monocyte, Absolute 0.5 10 3/mcL Normal 0.1-1.4 [facility] MAIN Comment on above: Performed By: #### A DIFF, ANEU, BMP, CBC, GFR #### [address] [address] Monocytes/100 WBC (Bld) 8.9 % Normal 2.0-13.0 [facility] MAIN Comment on above: Performed By: #### A DIFF, ANEU, BMP, CBC, GFR #### [address] [address] Neutrophils/100 WBC (Bld) 74.2 % Normal 50.0-75.0 [facility] MAIN Comment on above: Performed By: #### A DIFF, ANEU, BMP, CBC, GFR #### [address] [address] .GFRon 12-25-2024 Estimated Glomerular Filtration Rate 105 ml/min/1.73sqm Normal [facility] MAIN Comment on [...] A DIFF, ANEU, BMP, CBC, GFR #### [address] [address] .NEUABSon 12-25-2024 Neutrophil, Absolute 4.5 10 3/mcL Normal 2.3-8.1 [facility] MAIN Comment on above: Performed By: #### A DIFF, ANEU, BMP, CBC, GFR #### [address] [address] BMPon 12-25-2024 BUN/Creatinine Ratio 14.6 ratio Normal 10.0-22.0 [facility] MAIN Comment on above: Performed By: #### A DIFF, ANEU, BMP, CBC, GFR #### [address] [address] Calcium [Mass/Vol] 9.2 mg/dL Normal 8.7-10.4 [facility] MAIN Comment on above: Performed By: #### A DIFF, ANEU, BMP, CBC, GFR #### [address] [address] Chloride [Moles/Vol] 101 mmol/L Normal 98-110 [facility] MAIN Comment on above: Performed By: #### A DIFF, ANEU, BMP, CBC, GFR #### [address] [address] CO2 [Moles/Vol] 31 mmol/L Normal 22-32 [facility] MAIN Comment on above: Performed By: #### A DIFF, ANEU, BMP, CBC, GFR #### [address] [address] Creatinine [Mass/Vol] 0.82 mg/dL Normal 0.60-1.40 [facility] MAIN Comment on above: Result Comment: Test ing performed on Evgen analyzer using enzymatic creatinine methodology. Performed By: #### A DIFF, ANEU, BMP, CBC, GFR #### [address] [address] Electrolyte Balance 6.0 mEq/L Normal 4.0-15.0 [facility] MAIN Comment on above: Performed By: #### A DIFF, ANEU, BMP, CBC, GFR #### [address] [address] Glucose [Mass/Vol] 218 mg/dL High 70-110 [facility] MAIN Comment on above: Performed By: #### A DIFF, ANEU, BMP, CBC, GFR #### [address] [address] Potassium [Moles/Vol] 4.9 mmol/L Normal 3.5-5.0 [facility] MAIN Comment on above: Performed By: #### A DIFF, ANEU, BMP, CBC, GFR #### [address] [address] Sodium [Moles/Vol] 138 mmol/L Normal 136-145 [facility] MAIN Comment on above: Performed By: #### A DIFF, ANEU, BMP, CBC, GFR #### [place] [address] Urea nitrogen [Mass/Vol] 12.0 mg/dL Normal 8.0-22.0 [facility] MAIN Comment on above: Performed By: #### A DIFF, ANEU, BMP, CBC, GFR #### [place] [address] CBCon 12-25-2024 Erythrocyte distribution width (RBC) [Ratio] 15.2 % Normal 11.5-15.5 [facility] MAIN Comment on above: Performed By: #### A DIFF, ANEU, BMP, CBC, GFR #### [place] [address] Hematocrit (Bld) [Volume fraction] 43.7 % Normal 40.0-52.0 [facility] MAIN Comment on above: Performed By: #### A DIFF, ANEU, BMP, CBC, GFR #### [place] [address] Hgb 14.1 G/dL Normal 13.0-17.5 [facility] MAIN Comment on above: Performed By: #### A DIFF, ANEU, BMP, CBC, GFR #### [place] [address] MCH (RBC) [Entitic mass] 27.3 pg Normal 27.0-33.0 [facility] MAIN Comment on above: Performed By: #### A DIFF, ANEU, BMP, CBC, GFR #### [place] [id number] MCHC 32.3 G/dL Normal 32.0-36.0 [facility] MAIN Comment on above: Performed By: #### A DIFF, ANEU, BMP, CBC, GFR #### [place] [id number] [address] [place] [address] MCV (RBC) [Entitic vol] 84.6 fL Normal 81.0-100.0 [facility] MAIN Comment on above: Performed By: #### A DIFF, ANEU, BMP, CBC, GFR #### [place] [id number] [address] [place] [address] Platelet 136 10 3/mcL Low 150-450 [facility] MAIN Comment on above: Performed By: #### A DIFF, ANEU, BMP, CBC, GFR #### [place] [id number] [address] [place] [address] Platelet mean volume (Bld) [Entitic vol] 8.5 fL Normal 6.4-10.5 [facility] MAIN Comment on above: Performed By: #### A DIFF, ANEU, BMP, CBC, GFR #### [place] [address] RBC 5.16 10 6/mcL Normal 4.50-6.00 [facility] MAIN Comment on above: Performed By: #### A DIFF, ANEU, BMP, CBC, GFR #### [address] [address] WBC 6.1 10 3/mcL Normal 4.5-10.8 [facility] MAIN Comment on above: Performed By: #### A DIFF, ANEU, BMP, CBC, GFR #### [place] [address] LABORATORYOrdered By: Slime jaramillo on 12-25-2024 Blood Glucose Testing Reason Routine (12/25/24 4:14 PM) [facility] LABORATORYOrdered By: SYSTEM SYSTEM on 12-25-2024 Calcium [Mass/Vol] 9.2 mg/dL Normal 8.7 - 10. 4 mg/dL AH ADM SS Chloride [Moles/Vol] 101 mmol/L Normal 98 - 11 0 mEq/L AH ADM SS CO2 [Moles/Vol] 31 mmol/L Normal 22 - 32 mEq/L AH ADM SS Creatinine [Mass/Vol] 0.82 mg/dL Normal 0.60 - 1.40 mg/dL AH ADM SS Comment on above: Interpretive Data: T esting performed on Evgen analyzer using enzymatic creatinine methodology. Electrolyte Balance [...] 218 mg/dL High 70 - 110 mg/dL ADM SS Magnesium [Mass/Vol] 1.7 mg/dL Normal 1.6 - 2 .4 mg/dL ADM SS Potassium [Moles/Vol] 4.9 mmol/L Normal 3.5 - 5.0 mEq/L ADM SS Sodium [Moles/Vol] 138 mmol/L Normal 136 - 145 mEq/L ADM SS Urea nitrogen [Mass/Vol] 12.0 mg/dL Normal 8.0 - 22.0 mg/dL ADM SS Urea nitrogen/Creatinine [Mass ratio] 14.6 ratio Normal 10.0 - 22.0 ratio ADM SS Basophils (Bld) [#/Vol] 0.0 103/mcL Normal 0.0 - 0.3 10^3/mcL Workflow SS Basophils/100 WBC (Bld) 0.6 % Normal 0.0 - 2.5 % Workflow SS Eosinophils (Bld) [#/Vol] 0.1 103/mcL Normal 0.0 - 0.7 10^3/mcL AH Workflow SS Eosinophils/100 WBC (Bld) 2.2 % Normal 0.0 - 6.0 % Workflow SS Erythrocyte distribution width (RBC) [Ratio] 15.2 % Normal 11.5 - 15.5 % Workflow SS Hematocrit (Bld) [Volume fraction] 43.7 [...] Glucose Testing Reason Routine (12/25/24 11:33 AM) [facility] LABORATORYOrdered By: Patricia Max on 12-25-2024 Blood Glucose Testing Reason Routine (12/25/24 7:30 AM) [facility] MGon 12-25-2024 Magnesium [Mass/Vol] 1.7 mg/dL Normal 1.6-2.4 [facility] MAIN Comment on above: Order Comment: QNS 14:03:01 EDT Performed By: #### A DIFF, ANEU, BMP, CBC, GFR #### [address] [address] No Panel Informationon 12-25 Microscopic examination of blood, culture Culture has been received in lab and is no growth to date. Routine cultures are held for 5 days. [facility] VANCTon 12-25-2024 LDose Vancomycin:(trough) See eMAR Normal [facility] MAIN Comment on above: Performed By: #### C BC, MG, GFR, ADIFF, BMP, ANEU #### [address] [address] Vancomycin Tr 17.0 mcg/mL Normal 10.0-20.0 [facility] MAIN Comment on above: Performed By: #### C BC, MG, GFR, ADIFF, BMP, ANEU #### [address] [address] XR FLUORO 1-2 HRS TECH TIMEo n [...] 3:52:11 AM Ordering Provider: ANA LUISA Kate [facility] MAIN .Auto Diffon 12-24-2024 Basophil, Absolute 0.1 10 3/mcL Normal 0.0-0.3 [facility] MAIN Comment on above: Performed By: #### A DIFF, ANEU, BMP, CBC, GFR #### [address] [address] Basophils/100 WBC (Bld) 1.0 % Normal 0.0-2.5 [facility] MAIN Comment on above: Performed By: #### A DIFF, ANEU, BMP, CBC, GFR #### [address] [address] Eosinophil, Absolute 0.1 10 3/mcL Normal 0.0-0.7 [facility] MAIN Comment on above: Performed By: #### A DIFF, ANEU, BMP, CBC, GFR #### [address] [address] Eosinophils/100 WBC (Bld) 1.8 % Normal 0.0-6.0 [facility] MAIN Comment on above: Performed By: #### A DIFF, ANEU, BMP, CBC, GFR #### [address] [address] Lymphocyte, Absolute 0.9 10 3/mcL Normal 0.9-4.3 [facility] MAIN Comment on above: Performed By: #### A DIFF, ANEU, BMP, CBC, GFR #### [address] [address] Lymphocytes/100 WBC (Bld) 11.7 % Low 20.0-40.0 [facility] MAIN Comment on above: Performed By: #### A DIFF, ANEU, BMP, CBC, GFR #### [address] [address] Monocyte, Absolute 1.0 10 3/mcL Normal 0.1-1.4 [facility] MAIN Comment on above: Performed By: #### A DIFF, ANEU, BMP, CBC, GFR #### [address] [address] Monocytes/100 WBC (Bld) 12.9 % Normal 2.0-13.0 [facility] MAIN Comment on above: Performed By: #### A DIFF, ANEU, BMP, CBC, GFR #### [address] [address] Neutrophils/100 WBC (Bld) 72.6 % Normal 50.0-75.0 [facility] MAIN Comment on above: Performed By: #### A DIFF, ANEU, BMP, CBC, GFR #### [address] [address] .GFRon 12-24-2024 Estimated Glomerular Filtration Rate 92 ml/min/1.73sqm [facility] MAIN Comment on above: Result Comment: [...] A DIFF, ANEU, BMP, CBC, GFR #### [place] [address] Estimated Glomerular Filtration Rate 92 ml/min/1.73sqm [facility] MAIN Comment on above: Result Comment: [...] BC, MG, GFR, ADIFF, BMP, ANEU #### [address] [address] .NEUABSon 12-24-2024 Neutrophil, Absolute 5.4 10 3/mcL Normal 2.3-8.1 [facility] MAIN Comment on above: Performed By: #### A DIFF, ANEU, BMP, CBC, GFR #### [address] [address] [facility] BUN/Creatinine Ratio 11.2 ratio Normal 10.0-22.0 [facility] MAIN Comment on above: Performed By: #### A DIFF, ANEU, BMP, CBC, GFR #### [address] [address] Calcium [Mass/Vol] 9.2 mg/dL Normal 8.7-10.4 [facility] MAIN Comment on above: Performed By: #### A DIFF, ANEU, BMP, CBC, GFR #### [address] [address] Chloride [Moles/Vol] 97 mmol/L Low 98-110 [facility] MAIN Comment on above: Performed By: #### A DIFF, ANEU, BMP, CBC, GFR #### [address] [address] CO2 [Moles/Vol] 32 mmol/L Normal 22-32 [facility] MAIN Comment on above: Performed By: #### A DIFF, ANEU, BMP, CBC, GFR #### [address] [address] Creatinine [Mass/Vol] 0.98 mg/dL Normal 0.60-1.40 [facility] MAIN Comment on above: Result Comment: Test ing performed on Evgen analyzer using enzymatic creatinine methodology. Performed By: #### A DIFF, ANEU, BMP, CBC, GFR #### [address] [address] Electrolyte Balance 8.0 mEq/L Normal 4.0-15.0 [facility] MAIN Comment on above: Performed By: #### A DIFF, ANEU, BMP, CBC, GFR #### [address] [address] Glucose [Mass/Vol] 118 mg/dL High 70-110 [facility] MAIN Comment on above: Performed By: #### A DIFF, ANEU, BMP, CBC, GFR #### [address] [address] Potassium [Moles/Vol] 3.7 mmol/L Normal 3.5-5.0 [facility] MAIN Comment on above: Performed By: #### A DIFF, ANEU, BMP, CBC, GFR #### [address] [address] Sodium [Moles/Vol] 137 mmol/L Normal 136-145 [facility] MAIN Comment on above: Performed By: #### A DIFF, ANEU, BMP, CBC, GFR #### [address] [address] Urea nitrogen [Mass/Vol] 11.0 mg/dL Normal 8.0-22.0 [facility] MAIN Comment on above: Performed By: #### A DIFF, ANEU, BMP, CBC, GFR #### [address] [address] BUN/Creatinine Ratio 11.2 ratio Normal 10.0-22.0 [facility] MAIN Comment on above: Performed By: #### C BC, MG, GFR, ADIFF, BMP, ANEU #### [address] [address] Calcium [Mass/Vol] 9.3 mg/dL Normal 8.7-10.4 [facility] MAIN Comment on above: Performed By: #### C BC, MG, GFR, ADIFF, BMP, ANEU #### [address] [address] Chloride [Moles/Vol] 99 mmol/L Normal 98-110 [facility] MAIN Comment on above: Performed By: #### C BC, MG, GFR, ADIFF, BMP, ANEU #### [address] [address] CO2 [Moles/Vol] 31 mmol/L Normal 22-32 [facility] MAIN Comment on above: Performed By: #### C BC, MG, GFR, ADIFF, BMP, ANEU #### [address] [address] Creatinine [Mass/Vol] 0.98 mg/dL Normal 0.60-1.40 [facility] MAIN Comment on above: Result Comment: Test ing performed on Evgen analyzer using enzymatic creatinine methodology. Performed By: #### C BC, MG, GFR, ADIFF, BMP, ANEU #### [address] [address] Electrolyte Balance 3.0 mEq/L Low 4.0-15.0 [facility] MAIN Comment on above: Performed By: #### C BC, MG, GFR, ADIFF, BMP, ANEU #### [address] [address] Glucose [Mass/Vol] 100 mg/dL Normal 70-110 [facility] MAIN Comment on above: Performed By: #### C BC, MG, GFR, ADIFF, BMP, ANEU #### [address] [address] Potassium [Moles/Vol] 4.8 mmol/L Normal 3.5-5.0 [facility] MAIN Comment on above: Performed By: #### C BC, MG, GFR, ADIFF, BMP, ANEU #### [address] [address] Sodium [Moles/Vol] 133 mmol/L Low 136-145 [facility] MAIN Comment on above: Performed By: #### C BC, MG, GFR, ADIFF, BMP, ANEU #### [address] [address] Urea nitrogen [Mass/Vol] 11.0 mg/dL Normal 8.0-22.0 [facility] MAIN Comment on above: Performed By: #### C BC, MG, GFR, ADIFF, BMP, ANEU #### [place] [address] CBCon 12-24-2024 Erythrocyte distribution width (RBC) [Ratio] 15.0 % Normal 11.5-15.5 [facility] MAIN Comment on above: Performed By: #### A DIFF, ANEU, BMP, CBC, GFR #### [place] [address] Hematocrit (Bld) [Volume fraction] 44.1 % Normal 40.0-52.0 [facility] MAIN Comment on above: Performed By: #### A DIFF, ANEU, BMP, CBC, GFR #### [place] [address] Hgb 14.3 G/dL Normal 13.0-17.5 [facility] MAIN Comment on above: Performed By: #### A DIFF, ANEU, BMP, CBC, GFR #### [place] [address] MCH (RBC) [Entitic mass] 27.3 pg Normal 27.0-33.0 [facility] MAIN Comment on above: Performed By: #### A DIFF, ANEU, BMP, CBC, GFR #### [place] [address] MCHC 32.3 G/dL Normal 32.0-36.0 [facility] MAIN Comment on above: Performed By: #### A DIFF, ANEU, BMP, CBC, GFR #### [place] [address] MCV (RBC) [Entitic vol] 84.4 fL Normal 81.0-100.0 [facility] MAIN Comment on above: Performed By: #### A DIFF, ANEU, BMP, CBC, GFR #### [place] [address] Platelet 140 10 3/mcL Low 150-450 [facility] MAIN Comment on above: Result Comment: Plat elet results confirmed. Specimen was checked for clot Performed By: #### A DIFF, ANEU, BMP, CBC, GFR #### [place] [address] Platelet mean volume (Bld) [Entitic vol] 8.8 fL Normal 6.4-10.5 [facility] MAIN Comment on above: Performed By: #### A DIFF, ANEU, BMP, CBC, GFR #### [facility] [address] [place] [address] RBC 5.23 10 6/mcL Normal 4.50-6.00 [facility] MAIN Comment on above: Performed By: #### A DIFF, ANEU, BMP, CBC, GFR #### [facility] [address] [place] [address] WBC 7.5 10 3/mcL Normal 4.5-10.8 [facility] MAIN Comment on above: Performed By: #### A DIFF, ANEU, BMP, CBC, GFR #### [facility] [address] [place] [address] Comprehensive Metabolic Prof nmon 12-24-2024 ALB Normal 3.5-5.0 [facility] Comment on above: Order Comment: 314.2 Result Comment: [facility] Performed By: #### L 500.4050 ####[facility] [id number] [place], [address] ALK PHOS Normal 40-129 [facility] Comment on above: Order Comment: 314.2 Result Comment: [facility] Performed By: #### L 500.4050 ####[facility] [id number] [place], [address] ALT Normal <=46 [facility] Comment on above: Order Comment: 314.2 Result Comment: [facility] Performed By: #### L 500.4050 ####[facility] [id number] [place], [address] AST Normal <=37 [facility] Comment on above: Order Comment: 314.2 Result Comment: [facility] Performed By: #### L 500.4050 ####[facility] [address] [place], [address] BUN Normal 4-19 [facility] Comment on above: Order Comment: 314.2 Result Comment: [facility] Performed By: #### L [id number] ####[facility] [address] [place], [address] BUN/CRE Normal 10-20 [facility] Comment on above: Order Comment: 314.2 Result Comment: [facility] Performed By: #### L [id number] ####[facility] [address] [place], [address] Calcium Normal 7.6-11.0 [facility] Comment on above: Order Comment: 314.2 Result Comment: [facility] Performed By: #### L [id number] ####[facility] [address] [place], [address] CL Normal 98-108 [facility] Comment on above: Order Comment: 314.2 Result Comment: [facility] Performed By: #### L 500.4050 ####[facility] [address] [place], [address] CO2 Normal 21.0-32.0 [facility] Comment on above: Order Comment: 314.2 Result Comment: [facility] Performed By: #### L 500.4050 ####[facility] [address] [place], [address] CREAT,SERUM Normal 0.70-1.20 [facility] Comment on above: Order Comment: 314.2 Result Comment: [facility] Performed By: #### L 500.4050 ####[facility] [address] [place], [address] eGFR Normal >60 [facility] Comment on above: Order Comment: 314.2 Result Comment: [facility] Performed By: #### L 500.4050 ####[facility] [address] [place], [address] GAP Normal 5-15 [facility] Comment on above: Order Comment: 314.2 Result Comment: [facility] Performed By: #### L 500.4050 ####[facility] [address], [address] GLU Normal 70-99 [facility] Comment on above: Order Comment: 314.2 Result Comment: [facility] Performed By: #### L 500.4050 ####[facility] [address] [place], [address] Potassium Normal 3.3-5.1 [facility] Comment on above: Order Comment: 314.2 Result Comment: [facility] Performed By: #### L 500.4050 ####[facility] [address] [place], [address] T BILI Normal 0.00-1.30 [facility] Comment on above: Order Comment: 314.2 Result Comment: [facility] Performed By: #### L 500.4050 ####[facility] [address] [place], [address] T PROT Normal 5.9-8.4 [facility] Comment on above: Order Comment: 314.2 Result Comment: [facility] Performed By: #### L 500.4050 ####[facility] [address] [place], [address] Comprehensive Metabolic Profil Normal 133-145 [facility] Comment on above: Order Comment: 314.2 Result Comment: [facility] Performed By: #### L 500.4050 ####[facility] [address] [place], [address] LABORATORYOrdered By: SYSTEM SYSTEM on 12-24-2024 Basophils [...] above: Interpretive Data: T esting performed on Evgen analyzer using enzymatic creatinine methodology. Electrolyte Balance [...] mmol/L Normal 3.5 - 5.0 mEq/L ADM PT Coag (PPP) [Time] 13.8 s Normal 9.0 - 1 4.4 seconds [facility] Comment on above: Interpretive Data: E ffective 12/11/07, Protime results may be affected by some antibiotics (i.e. Ciprofloxacin, Azithromycin, Bactrim) which may potentiate the action of oral anticoagulants, with further increases in Protime/INR. PT International Ratio 1.2 ratio Invalid Interpretation Code [facility] Comment on above: Interpretive Data: Baljinder linn [employer] (CHEST, 1991, 102:312S-25S) [...] 12-24-2024 Magnesium [Mass/Vol] 1.9 mg/dL Normal 1.6-2.4 [facility] Comment on above: Performed By: #### A DIFF, ANEU, BMP, CBC, GFR #### [facility] [address] [place] [id number] No Panel Informationon 12-24 Microscopic examination of blood, culture Culture has been received in lab and is no growth to date. Routine cultures are held for 5 days. [facility] PROon 12-24-2024 INR Coag (PPP) [Relative time] 1.2 {INR} Normal [facility] Comment on above: Result Comment: [employer] (CHEST, 1991, 102:312S-25S) recommended therapeutic range for oral anticoagulant therapy is: LOW RISK: Prophylaxis of venous thrombosis INR: 2.0-3.0 Treatment of pulmonary embolism 2.0-3.0 Prevention of systemic embolism 2.0-3.0 HIGH RISK: Mechanical prosthetic valves 2.5-3.5 Performed By: #### A DIFF, ANEU, BMP, CBC, GFR #### [facility] [address] [place] [address] PT Coag (PPP) [Time] 13.8 s Normal 9.0-14.4 [facility] Comment on above: Result Comment: Effe ctive 07/15/08, Protime results may be affected by some antibiotics (i.e. Ciprofloxacin, Azithromycin, Bactrim) which may potentiate the action of oral anticoagulants, with further increases in Protime/INR. Performed By: #### A DIFF, ANEU, BMP, CBC, GFR #### [address] [address] .Auto Diffon 12-23-2024 Basophil, Absolute 0.1 10 3/mcL Normal 0.0-0.3 [facility] Comment on above: Performed By: #### C BC, MG, GFR, ADIFF, BMP, ANEU #### [address] [address] Basophils/100 WBC (Bld) 0.8 % Normal 0.0-2.5 [facility] Comment on above: Performed By: #### C BC, MG, GFR, ADIFF, BMP, ANEU #### [address] [address] Eosinophil, Absolute 0.2 10 3/mcL Normal 0.0-0.7 [facility] Comment on above: Performed By: #### C BC, MG, GFR, ADIFF, BMP, ANEU #### [address] [address] Eosinophils/100 WBC (Bld) 1.9 % Normal 0.0-6.0 [facility] Comment on above: Performed By: #### C BC, MG, GFR, ADIFF, BMP, ANEU #### [address] [address] Lymphocyte, Absolute 1.2 10 3/mcL Normal 0.9-4.3 [facility] Comment on above: Performed By: #### C BC, MG, GFR, ADIFF, BMP, ANEU #### [address] [address] Lymphocytes/100 WBC (Bld) 13.9 % Low 20.0-40.0 [facility] Comment on above: Performed By: #### C BC, MG, GFR, ADIFF, BMP, ANEU #### [address] [address] Monocyte, Absolute 1.1 10 3/mcL Normal 0.1-1.4 [facility] Comment on above: Performed By: #### C BC, MG, GFR, ADIFF, BMP, ANEU #### [address] [address] Monocytes/100 WBC (Bld) 12.5 % Normal 2.0-13.0 [facility] Comment on above: Performed By: #### C BC, MG, GFR, ADIFF, BMP, ANEU #### [address] [address] Neutrophils/100 WBC (Bld) 70.9 % Normal 50.0-75.0 [facility] Comment on above: Performed By: #### C BC, MG, GFR, ADIFF, BMP, ANEU #### [address] [address] .MDWon 12-23-2024 Monocyte Distribution Width 21.10 High 0.00-20.00 [facility] Comment on above: Result Comment: For adults in ED, MDW>20.0 may be associated with a higher risk of sepsis during the first 12hrs of hospital admission Performed By: #### C BC, MG, GFR, ADIFF, BMP, ANEU #### [address] [address] .NEUABSon 12-23-2024 Neutrophil, Absolute 6.0 10 3/mcL Normal 2.3-8.1 [facility] Comment on above: Performed By: #### C BC, MG, GFR, ADIFF, BMP, ANEU #### [address] [address] ABO/Rh (Gel)on 12-23-2024 ABO/Rh Interp Positive Invalid Interpretation Code [facility] Comment on above: Performed By: #### C BC, MG, GFR, ADIFF, BMP, ANEU #### [address] [address] ABS (Gel)on 12-23-2024 ABSC Interp (Gel) Negative Normal [facility] Comment on above: Performed By: #### C BC, MG, GFR, ADIFF, BMP, ANEU #### [address] [address] CBCon 12-23-2024 Erythrocyte distribution width (RBC) [Ratio] 15.1 % Normal 11.5-15.5 [facility] Comment on above: Performed By: #### C BC, MG, GFR, ADIFF, BMP, ANEU #### [place] [address] Hematocrit (Bld) [Volume fraction] 47.5 % Normal 40.0-52.0 [facility] Comment on above: Performed By: #### C BC, MG, GFR, ADIFF, BMP, ANEU #### [place] [address] Hgb 15.5 G/dL Normal 13.0-17.5 [facility] Comment on above: Performed By: #### C BC, MG, GFR, ADIFF, BMP, ANEU #### [place] [address] MCH (RBC) [Entitic mass] 27.7 pg Normal 27.0-33.0 [facility] Comment on above: Performed By: #### C BC, MG, GFR, ADIFF, BMP, ANEU #### [place] [address] MCHC 32.5 G/dL Normal 32.0-36.0 [facility] Comment on above: Performed By: #### C BC, MG, GFR, ADIFF, BMP, ANEU #### [place] [address] MCV (RBC) [Entitic vol] 85.0 fL Normal 81.0-100.0 [facility] Comment on above: Performed By: #### C BC, MG, GFR, ADIFF, BMP, ANEU #### [place] [address] Platelet 223 10 3/mcL Normal 150-450 [facility] Comment on above: Performed By: #### C BC, MG, GFR, ADIFF, BMP, ANEU #### [place] [address] Platelet mean volume (Bld) [Entitic vol] 8.0 fL Normal 6.4-10.5 [facility] Comment on above: Performed By: #### C BC, MG, GFR, ADIFF, BMP, ANEU #### [place] [id number] [place] [address] RBC 5.59 10 6/mcL Normal 4.50-6.00 [facility] Comment on above: Performed By: #### C BC, MG, GFR, ADIFF, BMP, ANEU #### [place] [id number] WBC 8.5 10 3/mcL Normal 4.5-10.8 [facility] Comment on above: Performed By: #### C BC, MG, GFR, ADIFF, BMP, ANEU #### [place] [address] LABORATORYOrdered By: Suze Amaya on 12-23-2024 ABO [...] Lactic Acid Lvl 1.0 mmol/L Normal 0.5-2.2 [facility] Comment on above: Performed By: #### C BC, MG, GFR, ADIFF, BMP, ANEU #### [address] [address] No Panel Informationon 12-23 Microscopic examination of blood, culture Culture has been received in lab and is no growth to date. Routine cultures are held for 5 days. [facility] Microscopic examination of blood, culture Culture has been received in lab and is no growth to date. Routine cultures are held for 5 days. [facility] XR ANKLE MINIMUM 3 VIEWS LEF [...] 12/23/2024 9:57:26 PM Ordering Provider: FARZAD Kate [facility] XR ANKLE MINIMUM 3 [...] 12/23/2024 10:04:30 PM Ordering Provider: FARZAD GIL [facility] Absolute lymphocyte countOrd ered By: Yaz Dee on 12-21-2024 Lymphocytes Auto (Unsp spec) [#/Vol] 1.12 10*3/uL 0.83-4.51 [facility] Absolute neutrophil countOrd ered By: Yaz Dee on 12-21-2024 Neutrophils (Bld) [#/Vol] 5.1 10*3/uL 2.0-7.7 [facility] Anion gap in Serum or Plasma Ordered By: Yaz Dee on 12-21-2024 Anion gap [Moles/Vol] 10 mmol/L 5- [facility] Automated lymphocyte count a s percentage of total leukocytesOrdered By: Yaz Dee on 12-21-2024 Lymphocytes/100 WBC Auto (Unsp spec) 15.1 % Low 19-41 [facility] BUN/creatinine ratioOrdered By: Yaz Dee on 12-21-2024 Urea nitrogen/Creatinine [Mass ratio] 13.8 mg/mg 10- [facility] Basic Metabolic Profile (BMP )on 12-21-2024 BUN/CRE 13.8 RATIO Normal - [facility] Comment on above: Performed By: #### L 500.2500, L100.0100 ####[facility] [address] [place], [address] Calcium [Mass/Vol] 9.2 mg/dL Normal 7.6-11.0 [facility] Comment on above: Performed By: #### L 500.2500, L100.0100 ####[facility] [address] [place], [address] Chloride [Moles/Vol] 101 mmol/L Normal 98-108 [facility] Comment on above: Performed By: #### L 500.2500, L100.0100 ####[facility] [address] [place], [address] CO2 [Moles/Vol] 29.1 mmol/L Normal 21.0-32.0 [facility] Comment on above: Performed By: #### L 500.2500, L100.0100 ####[facility] [address] [place], [address] Creatinine [Mass/Vol] 0.86 mg/dL Normal 0.70-1.20 [facility] Comment on above: Performed By: #### L 500.2500, L100.0100 ####[facility] [address] [place], [address] ECRCL 138.62 ml/min Normal 50-250 [facility] Comment on above: Performed By: #### L 500.2500, L100.0100 ####[facility] [address] [place], [address] GAP 10 Normal 5-15 [facility] Comment on above: Performed By: #### L 500.2500, L100.0100 ####[facility] [address] [place], [address] GFR/1.73 sq M.predicted among non-blacks MDRD (S/P/Bld) [Vol rate/Area] 103 mL/min/{1.73_m2} Normal >60 [facility] Comment on above: Result Comment: mL/m in/1.73m2 CKD-EPI Creatinine Equation (2020) Performed By: #### L 500.2500, L100.0100 ####[facility] [address] [place], [address] Glucose [Mass/Vol] 126 mg/dL High 70-99 [facility] Comment on above: Performed By: #### L 500.2500, L100.0100 ####[facility] [address] [place], [address] Potassium [Moles/Vol] 4.5 mmol/L Normal 3.3-5.1 [facility] Comment on above: Result Comment: Hemo lysis present, Results??could be affected.?? Performed By: #### L 500.2500, L100.0100 ####[facility] [address] [place], [address] Sodium [Moles/Vol] 140 mmol/L Normal 133-145 [facility] Comment on above: Performed By: #### L 500.2500, L100.0100 ####[facility] [address] [place], [address] Urea nitrogen [Mass/Vol] 12 mg/dL Normal 4-19 [facility] Comment on above: Performed By: #### L 500.2500, L100.0100 ####[facility] [address] [place], [address] Basophil percentageOrdered B y: Yaz Dee on 12-21-2024 Basophils/100 WBC (Bld) 0.5 % 0-1 [facility] Bedside Glucoseon 12-21-2024 FINGERSTICK GLU 171 mg/dL High 74-106 [facility] Comment on above: Result Comment: STEPHANIE GEMENT OF PATIENT CARE PER NURSING PROTOCOL Performed By: #### L 501.080 ####[facility] [address] [place], [address] FINGERSTICK GLU 99 mg/dL Normal 74-106 [facility] Comment on above: Result Comment: STEPHANIE GEMENT OF PATIENT CARE PER NURSING PROTOCOL Performed By: #### L 501.080 ####[facility] [address] [place], [address] CBC W/Diff, Automatedon 07-2 Absolute Lymph 1.12 X10 3/uL Normal 0.83-4.51 [facility] Comment on above: Performed By: #### L 500.2500, L100.0100 ####[facility] [address] [place], [address] Absolute Neut 5.1 X10 3/uL Normal 2.0-7.7 [facility] Comment on above: Performed By: #### L 500.2500, L100.0100 ####[facility] [address] [place], [address] Basophils/100 WBC (Bld) 0.5 % Normal 0-1 [facility] Comment on above: Performed By: #### L 500.2500, L100.0100 ####[facility] [address] [place], [address] Eosinophils/100 WBC (Bld) 1.9 % Normal 0-5 [facility] Comment on above: Performed By: #### L 500.2500, L100.0100 ####[facility] [address] [place], [address] Erythrocyte distribution width (RBC) [Ratio] 13.8 % Normal 11.6-14.6 [facility] Comment on above: Performed By: #### L 500.2500, L100.0100 ####[facility] [address] [place], [address] Hematocrit (Bld) [Volume fraction] 45.3 % Normal 40-54 [facility] Comment on above: Performed By: #### L 500.2500, L100.0100 ####[facility] [address] [place], [address] Hemoglobin (Bld) [Mass/Vol] 14.2 g/dL Normal 13.0-16.5 [facility] Comment on above: Performed By: #### L 500.2500, L100.0100 ####[facility] [address] [place], [address] IG% 0.300 Normal 0.0-0.9 [facility] Comment on above: Result Comment: IG% - Immature Granulocytes (promyelocytes, myelocytes andmetamyelocytes) > 1% indicates that a LEFT SHIFT is Present. Performed By: #### L 500.2500, L100.0100 ####[facility] [address] [place], [address] Lymphocytes/100 WBC (Bld) 15.1 % Low 19-41 [facility] Comment on above: Performed By: #### L 500.2500, L100.0100 ####[facility] [address] [place], [address] MCH (RBC) [Entitic mass] 27.2 pg Normal 27.0-32.0 [facility] Comment on above: Performed By: #### L 500.2500, L100.0100 ####[facility] [address] [place], [address] MCHC (RBC) [Mass/Vol] 31.3 g/dL Low 32-36 [facility] Comment on above: Performed By: #### L 500.2500, L100.0100 ####[facility] [address] [place], [address] MCV (RBC) [Entitic vol] 86.6 fL Normal 80-94 [facility] Comment on above: Performed By: #### L 500.2500, L100.0100 ####[facility] [address] [place], [address] Monocytes/100 WBC (Bld) 13.4 % High 0-10 [facility] Comment on above: Performed By: #### L 500.2500, L100.0100 ####[facility] [address] [place], [address] Neutrophils/100 WBC (Bld) 68.8 % Normal 47-70 [facility] Comment on above: Performed By: #### L 500.2500, L100.0100 ####[facility] [address] [place], [address] Nucleated RBC (Bld) [#/Vol] 0 10*3/uL Normal 0-5 [facility] Comment on above: Performed By: #### L 500.2500, L100.0100 ####[facility] [address] [place], [address] Platelet mean volume (Bld) [Entitic vol] 9.8 fL Normal 6.2-12.0 [facility] Comment on above: Performed By: #### L 500.2500, L100.0100 ####[facility] [address] [place], [address] Platelets (Bld) [#/Vol] 191 10*3/uL Normal 150-450 [facility] Comment on above: Performed By: #### L 500.2500, L100.0100 ####[facility] [address] [place], [address] RBC (Bld) [#/Vol] 5.23 10*6/uL Normal 4.6-6.2 [facility] Comment on above: Performed By: #### L 500.2500, L100.0100 ####[facility] [address] [place], [address] RDW SD 43.9 fl Normal 35.1-43.9 [facility] Comment on above: Performed By: #### L 500.2500, L100.0100 ####[facility] [address] [place], [address] WBC (Bld) [#/Vol] 7.4 10*3/uL Normal 4.4-11.0 [facility] Comment on above: Performed By: #### L 500.2500, L100.0100 ####[facility] [address] [place], [address] Carbon dioxide, total [Moles /volume] in Central venous bloodOrdered By: Yaz Dee on 12-21-2024 CO2 [Moles/Vol] 29.1 mmol/L 21.0-32.0 [facility] Chloride assayOrdered By: Yamilka Dee on 12-21-2024 Chloride [Moles/Vol] 101 mmol/L 98-108 [facility] Eosinophil percentageOrdered By: Yaz Dee on 12-21-2024 Eosinophils/100 WBC (Bld) 1.9 % 0-5 [facility] Erythrocyte distribution wid th ratioOrdered By: Yaz Dee on 12-21-2024 Erythrocyte distribution width (RBC) [Ratio] 13.8 % 11.6-14.6 [facility] Erythrocyte distribution wid th standard deviationOrdered By: Yaz Dee on 12-21-2024 Erythrocyte distribution width (RBC) [Ratio] 43.9 fl 35.1-43.9 [facility] Glomerular filtration rate ( GFR) estimation/1.73 sq m using serum, plasma, or whole bOrdered By: Yaz Dee on 12-21-2024 GFR/1.73 sq M.predicted among non-blacks MDRD (S/P/Bld) [Vol rate/Area] 103 mL/min/{1.73_m2} >60 [facility] Comment on above: mL/min/1.73m2 CKD-EP I Creatinine Equation (2020) [facility] de[facility]dered By: Farzad Camilo on 12-21-2024 Glucose [Mass/Vol] 171 mg/dL High 74-106 [facility] Comment on above: MANAGEMENT OF PATIEN T CARE PER NURSING PROTOCOL Hematocrit Auto (Bld) [Volum e fraction]Ordered By: Yaz Dee on 12-21-2024 Hematocrit (Bld) [Volume fraction] 45.3 % 40-54 [facility] Hemoglobin measurementOrdere d By: Yaz Dee on 12-21-2024 Hemoglobin (Bld) [Mass/Vol] 14.2 g/dL 13.0-16.5 [facility] Immature granulocytes/100 WB C Auto (Bld)Ordered By: Yaz Dee on 12-21-2024 Immature granulocytes/100 WBC (Bld) 0.300 % 0.0-0.9 [facility] Comment on above: IG% - Immature Granu locytes (promyelocytes, myelocytes and metamyelocytes) > 1% indicates that a LEFT SHIFT is Present. MCV (mean corpuscular volume ) determinationOrdered By: Yaz Dee on 12-21-2024 MCV (RBC) [Entitic vol] 86.6 fL 80-94 [facility] Mean corpuscular hemoglobin (MCH) determinationOrdered By: aYz Dee on 12-21-2024 MCH (RBC) [Entitic mass] 27.2 pg 27.0-32.0 [facility] Mean corpuscular hemoglobin concentration (MCHC) determinationOrdered By: Yaz Dee on 12-21-2024 MCHC (RBC) [Mass/Vol] 31.3 g/dL Low 32-36 [facility] Mean platelet volume determi nationOrdered By: Yaz Dee on 12-21-2024 Platelet mean volume (Bld) [Entitic vol] 9.8 fL 6.2-12.0 [facility] Monocyte percentageOrdered B y: Yaz Dee on 12-21-2024 Monocytes/100 WBC (Bld) 13.4 % High 0-10 [facility] Neutrophil percentageOrdered By: Yaz Dee on 12-21-2024 Neutrophils/100 WBC (Bld) 68.8 % 47-70 [facility] Nucleated red blood cell per centageOrdered By: Yaz Dee on 12-21-2024 Nucleated RBC/100 WBC (Bld) [Ratio] 0 % 0-5 [facility] Platelet countOrdered By: Yamilka Dee on 12-21-2024 Platelets (Bld) [#/Vol] 191 10*3/uL 150-450 [facility] Potassium measurement (mass/ volume)Ordered By: Yaz Dee on 12-21-2024 Potassium (Unsp spec) [Mass/Vol] 4.5 mmol/L 3.3-5.1 [facility] Comment on above: Hemolysis present, R esults could be affected. RBC Auto (Bld) [#/Vol]Ordere d By: Yaz Dee on 12-21-2024 RBC (Bld) [#/Vol] 5.23 10*6/uL 4.6-6.2 [facility] Serum creatinine measurement (mass/volume)Ordered By: Yaz Dee on 12-21-2024 Creatinine [Mass/Vol] 0.86 mg/dL 0.70-1.20 [facility] Serum glucose measurement (m ass/volume)Ordered By: Yaz Dee on 12-21-2024 Glucose [Mass/Vol] 126 mg/dL High 70-99 [facility] Serum or plasma calcium scott urement (mass/volume)Ordered By: Yaz Dee on 12-21-2024 Calcium [Mass/Vol] 9.2 mg/dL 7.6-11.0 [facility] Serum or plasma urea nitroge n measurement (mass/volume)Ordered By: Yaz Dee on 12-21-2024 Urea nitrogen [Mass/Vol] 12 mg/dL 4-19 [facility] Sodium levelOrdered By: Unique Dee on 12-21-2024 Sodium [Moles/Vol] 140 mmol/L 133-145 [facility] White blood cell (WBC) count Ordered By: Yaz Dee on 12-21-2024 WBC (Bld) [#/Vol] 7.4 10*3/uL 4.4-11.0 [facility] Absolute lymphocyte countOrd ered By: Robles Botello on 12-20-2024 Lymphocytes Auto (Unsp spec) [#/Vol] 0.89 10*3/uL 0.83-4.51 [facility] Absolute neutrophil countOrd ered By: Robles Botello on 12-20-2024 Neutrophils (Bld) [#/Vol] 6.4 10*3/uL 2.0-7.7 [facility] Anion gap in Serum or Plasma Ordered By: Robles Botello on 12-20-2024 Anion gap [Moles/Vol] 10 mmol/L 5-15 [facility] Automated lymphocyte count a s percentage of total leukocytesOrdered By: Robles Botello on 12-20-2024 Lymphocytes/100 WBC Auto (Unsp spec) 10.6 % Low 19-41 [facility] BUN/creatinine ratioOrdered By: Robles Botello on 12-20-2024 Urea nitrogen/Creatinine [Mass ratio] 12.3 mg/mg 10-20 [facility] Basic Metabolic Profile (BMP )on 12-20-2024 BUN/CRE 12.3 RATIO Normal 10-20 [facility] Comment on above: Performed By: #### L 100.0100, L500.2500 ####[facility] [address] [place], [address] Calcium [Mass/Vol] 9.2 mg/dL Normal 7.6-11.0 [facility] Comment on above: Performed By: #### L 100.0100, L500.2500 ####[facility] [address] [place], [address] Chloride [Moles/Vol] 98 mmol/L Normal 98-108 [facility] Comment on above: Performed By: #### L 100.0100, L500.2500 ####[facility] [address] [place], [address] CO2 [Moles/Vol] 26.7 mmol/L Normal 21.0-32.0 [facility] Comment on above: Performed By: #### L 100.0100, L500.2500 ####[facility] [address] [place], [address] Creatinine [Mass/Vol] 0.94 mg/dL Normal 0.70-1.20 [facility] Comment on above: Performed By: #### L 100.0100, L500.2500 ####[facility] [address] [place], [address] ECRCL 128.93 ml/min Normal 50-250 [facility] Comment on above: Performed By: #### L 100.0100, L500.2500 ####[facility] [address] [place], [address] GAP 10 Normal 5-15 [facility] Comment on above: Performed By: #### L 100.0100, L500.2500 ####[facility] [address] [place], [address] GFR/1.73 sq M.predicted among non-blacks MDRD (S/P/Bld) [Vol rate/Area] 97 mL/min/{1.73_m2} Normal >60 [facility] Comment on above: Result Comment: mL/m in/1.73m2 CKD-EPI Creatinine Equation (2020) Performed By: #### L 100.0100, L500.2500 ####[facility] [address] [place], [address] Glucose [Mass/Vol] 121 mg/dL High 70-99 [facility] Comment on above: Performed By: #### L 100.0100, L500.2500 ####[facility] [address] [place], [address] Potassium [Moles/Vol] 4.2 mmol/L Normal 3.3-5.1 [facility] Comment on above: Performed By: #### L 100.0100, L500.2500 ####[facility] [address] [place], [address] Sodium [Moles/Vol] 134 mmol/L Normal 133-145 [facility] Comment on above: Performed By: #### L 100.0100, L500.2500 ####[facility] [address] [place], [address] Urea nitrogen [Mass/Vol] 12 mg/dL Normal 4-19 [facility] Comment on above: Performed By: #### L 100.0100, L500.2500 ####[facility] [address] [place], [address] Basophil percentageOrdered B y: Robles Botello on 12-20-2024 Basophils/100 WBC (Bld) 0.5 % 0-1 [facility] Bedside Glucoseon 12-20-2024 FINGERSTICK GLU 222 mg/dL High 74-106 [facility] Comment on above: Result Comment: STEPHANIE ATKINSON OF PATIENT CARE PER NURSING PROTOCOL Performed By: #### L 501.080 ####[facility] [address], [address] CBC W/Diff, Automatedon 07-2 -2024 Absolute Lymph 0.89 X10 3/uL Normal 0.83-4.51 [facility] Comment on above: Performed By: #### L 100.0100, L500.2500 ####[facility] [address] [place], [address] Absolute Neut 6.4 X10 3/uL Normal 2.0-7.7 [facility] Comment on above: Performed By: #### L 100.0100, L500.2500 ####[facility] [address], [address] Basophils/100 WBC (Bld) 0.5 % Normal 0-1 [facility] Comment on above: Performed By: #### L 100.0100, L500.2500 ####[facility] [address] [place], [address] Eosinophils/100 WBC (Bld) 1.6 % Normal 0-5 [facility] Comment on above: Performed By: #### L 100.0100, L500.2500 ####[facility] [address] [place], [address] Erythrocyte distribution width (RBC) [Ratio] 13.9 % Normal 11.6-14.6 [facility] Comment on above: Performed By: #### L 100.0100, L500.2500 ####[facility] [address] [place], [address] Hematocrit (Bld) [Volume fraction] 46.2 % Normal 40-54 [facility] Comment on above: Performed By: #### L 100.0100, L500.2500 ####[facility] [address], [address] Hemoglobin (Bld) [Mass/Vol] 14.3 g/dL Normal 13.0-16.5 [facility] Comment on above: Performed By: #### L 100.0100, L500.2500 ####[facility] [address] [place], [address] IG% 0.400 Normal 0.0-0.9 [facility] Comment on above: Result Comment: IG% - Immature Granulocytes (promyelocytes, myelocytes andmetamyelocytes) > 1% indicates that a LEFT SHIFT is Present. Performed By: #### L 100.0100, L500.2500 ####[facility] [address] [place], [address] Lymphocytes/100 WBC (Bld) 10.6 % Low 19-41 [facility] Comment on above: Performed By: #### L 100.0100, L500.2500 ####[facility] [address] [place], [address] MCH (RBC) [Entitic mass] 26.9 pg Low 27.0-32.0 [facility] Comment on above: Performed By: #### L 100.0100, L500.2500 ####[facility] [address] [place], [address] MCHC (RBC) [Mass/Vol] 31.0 g/dL Low 32-36 [facility] Comment on above: Performed By: #### L 100.0100, L500.2500 ####[facility] [address] [place], [address] MCV (RBC) [Entitic vol] 87.0 fL Normal 80-94 [facility] Comment on above: Performed By: #### L 100.0100, L500.2500 ####[facility] [address] [place], [address] Monocytes/100 WBC (Bld) 10.6 % High 0-10 [facility] Comment on above: Performed By: #### L 100.0100, L500.2500 ####[facility] [address] [place], [address] Neutrophils/100 WBC (Bld) 76.3 % High 47-70 [facility] Comment on above: Performed By: #### L 100.0100, L500.2500 ####[facility] [address] [place], [address] Nucleated RBC (Bld) [#/Vol] 0 10*3/uL Normal 0-5 [facility] Comment on above: Performed By: #### L 100.0100, L500.2500 ####[facility] [address] [place], [address] Platelet mean volume (Bld) [Entitic vol] 9.8 fL Normal 6.2-12.0 [facility] Comment on above: Performed By: #### L 100.0100, L500.2500 ####[facility] [address] [place], [address] Platelets (Bld) [#/Vol] 198 10*3/uL Normal 150-450 [facility] Comment on above: Performed By: #### L 100.0100, L500.2500 ####[facility] [address] [place], [address] RBC (Bld) [#/Vol] 5.31 10*6/uL Normal 4.6-6.2 [facility] Comment on above: Performed By: #### L 100.0100, L500.2500 ####[facility] [address] [place], [address] RDW SD 44.4 fl High 35.1-43.9 [facility] Comment on above: Performed By: #### L 100.0100, L500.2500 ####[facility] [address] [place], [place], [address] WBC (Bld) [#/Vol] 8.4 10*3/uL Normal 4.4-11.0 [facility] Comment on above: Performed By: #### L 100.0100, L500.2500 ####[facility] [address] [place], [place], [id number] CTA Chest W/WO Contraston CTA Chest W/WO Contrast Normal [facility] Carbon dioxide, total [Moles /volume] in Central venous bloodOrdered By: Robles Botello on 12-20-2024 CO2 [Moles/Vol] 26.7 mmol/L 21.0-32.0 [facility] Chloride assayOrdered By: Otis Botello on 12-20-2024 Chloride [Moles/Vol] 98 mmol/L 98-108 [facility] Consultation - Surgicalon Consultation - Surgical Normal [facility] D-Dimer Quantitative (DVT/PE )on 12-20-2024 D-DIMER QUANT 0.58 FEU/ug/m Invalid Interpretation Code 0.27-0.49 [facility] Comment on above: Result Comment: D-Di joanne ELEVATED (>0.49): Additional studies and clinicalassessments are indicated to conclude diagnosis of:Deep Vein Thrombosis (DVT) or Pulmonary Embolism (PE)CRITICAL VALUE CALLED TO [id number]/25/25 0020 Marquez Swain.RESULTS READ BACK BY SAME. Performed By: #### L 300.8000 ####[facility] [address] [place], [place], [id number] Emergency Department Summary on 12-20-2024 Emergency Department Summary Normal [facility] Eosinophil percentageOrdered By: Robles Botello on 12-20-2024 Eosinophils/100 WBC (Bld) 1.6 % 0-5 [facility] Erythrocyte distribution wid th ratioOrdered By: Robles Botello on 12-20-2024 Erythrocyte distribution width (RBC) [Ratio] 13.9 % 11.6-14.6 [facility] Erythrocyte distribution wid th standard deviationOrdered By: Robles Botello on 12-20-2024 Erythrocyte distribution width (RBC) [Ratio] 44.4 fl High 35.1-43.9 [facility] Glomerular filtration rate ( GFR) estimation/1.73 sq m using serum, plasma, or whole bOrdered By: Robles Botello on 12-20-2024 GFR/1.73 sq M.predicted among non-blacks MDRD (S/P/Bld) [Vol rate/Area] 97 mL/min/{1.73_m2} >60 [facility] Comment on above: mL/min/1.73m2 CKD-EP I Creatinine Equation (2020) H AND P Exam - Hospitaliston 12-20-2024 H&P Exam - Hospitalist Normal [facility] Hand Min 3 Viewson Hand Min 3 Views Normal [facility] Hematocrit Auto (Bld) [Volum e fraction]Ordered By: Robles Botello on 12-20-2024 Hematocrit (Bld) [Volume fraction] 46.2 % 40-54 [facility] Hemoglobin measurementOrdere d By: Robles Botello on 12-20-2024 Hemoglobin (Bld) [Mass/Vol] 14.3 g/dL 13.0-16.5 [facility] Immature granulocytes/100 WB C Auto (Bld)Ordered By: Robles Botello on 12-20-2024 Immature granulocytes/100 WBC (Bld) 0.400 % 0.0-0.9 [facility] Comment on above: IG% - Immature Granu locytes (promyelocytes, myelocytes and metamyelocytes) > 1% indicates that a LEFT SHIFT is Present. MCV (mean corpuscular volume ) determinationOrdered By: Robles Botello on 12-20-2024 MCV (RBC) [Entitic vol] 87.0 fL 80-94 [facility] Mean corpuscular hemoglobin (MCH) determinationOrdered By: Robles Botello on 12-20-2024 MCH (RBC) [Entitic mass] 26.9 pg Low 27.0-32.0 [facility] Mean corpuscular hemoglobin concentration (MCHC) determinationOrdered By: Robles Botello on 12-20-2024 MCHC (RBC) [Mass/Vol] 31.0 g/dL Low 32-36 [facility] Mean platelet volume determi nationOrdered By: Robles Botello on 12-20-2024 Platelet mean volume (Bld) [Entitic vol] 9.8 fL 6.2-12.0 [facility] Monocyte percentageOrdered B y: Robles Botello on 12-20-2024 Monocytes/100 WBC (Bld) 10.6 % High 0-10 [facility] Neutrophil percentageOrdered By: Robles Botello on 12-20-2024 Neutrophils/100 WBC (Bld) 76.3 % High 47-70 [facility] Nucleated red blood cell per centageOrdered By: Robles Botello on 12-20-2024 Nucleated RBC/100 WBC (Bld) [Ratio] 0 % 0-5 [facility] Platelet countOrdered By: Otis Botello on 12-20-2024 Platelets (Bld) [#/Vol] 198 10*3/uL 150-450 [facility] Potassium measurement (mass/ volume)Ordered By: Robles Botello on 12-20-2024 Potassium (Unsp spec) [Mass/Vol] 4.2 mmol/L 3.3-5.1 [facility] RBC Auto (Bld) [#/Vol]Ordere d By: Robles Botello on 12-20-2024 RBC (Bld) [#/Vol] 5.31 10*6/uL 4.6-6.2 [facility] Serum creatinine measurement (mass/volume)Ordered By: Robles Botello on 12-20-2024 Creatinine [Mass/Vol] 0.94 mg/dL 0.70-1.20 [facility] Serum glucose measurement (m ass/volume)Ordered By: Robles Botello on 12-20-2024 Glucose [Mass/Vol] 121 mg/dL High 70-99 [facility] Serum or plasma calcium scott urement (mass/volume)Ordered By: Robles Botello on 12-20-2024 Calcium [Mass/Vol] 9.2 mg/dL 7.6-11.0 [facility] Serum or plasma urea nitroge n measurement (mass/volume)Ordered By: Robles Botello on 12-20-2024 Urea nitrogen [Mass/Vol] 12 mg/dL 4-19 [facility] Sodium levelOrdered By: Liu Botello on 12-20-2024 Sodium [Moles/Vol] 134 mmol/L 133-145 [facility] Troponin T HS 2 HRon 025 Trop T High Sen 16 ng/L Normal <=22 [facility] Comment on above: Performed By: #### L 499.0042 ####[facility] [address] [place], [place], [id number] Troponin T HS 4 HRon 025 Trop T High Sen Normal <=22 [facility] Comment on above: Result Comment: [facility] DEPARTED ER. Performed By: #### L 499.0043 ####[facility] [address] [place], [place], [id number] Troponin T.cardiac [Mass/vol ume] in Serum or Plasma by High sensitivity methodOrdered By: Nguyễn Al on 12-20-2024 Troponin T.cardiac High sensitivity method [Mass/Vol] 16 ng/L <22 [facility] White blood cell (WBC) count Ordered By: Robles Botello on 12-20-2024 WBC (Bld) [#/Vol] 8.4 10*3/uL 4.4-11.0 [facility] 12 Lead EKGon 12-19-2024 12 Lead EKG Normal [facility] Absolute lymphocyte countOrd ered By: Nguyễn Al on 12-19-2024 Lymphocytes Auto (Unsp spec) [#/Vol] 1.20 10*3/uL 0.83-4.51 [facility] Absolute neutrophil countOrd ered By: Nguyễn Al on 12-19-2024 Neutrophils (Bld) [#/Vol] 6.1 10*3/uL 2.0-7.7 [facility] Anion gap in Serum or Plasma Ordered By: Nguyễn Al on 12-19-2024 Anion gap [Moles/Vol] 10 mmol/L 5-15 [facility] Automated lymphocyte count a s percentage of total leukocytesOrdered By: Nguyễn Al on 12-19-2024 Lymphocytes/100 WBC Auto (Unsp spec) 14.4 % Low 19-41 [facility] BUN/creatinine ratioOrdered By: Nguyễn Al on 12-19-2024 Urea nitrogen/Creatinine [Mass ratio] 13.8 mg/mg 03-17 [facility] Basic Metabolic Profile (BMP )on 12-19-2024 BUN/CRE 13.8 RATIO Normal 03-17 [facility] Comment on above: Performed By: #### L 300.3900, L100.0100, L501.4021, L500.2500 ####[facility] [address] [place], [address] Calcium [Mass/Vol] 8.8 mg/dL Normal 7.6-11.0 [facility] Comment on above: Performed By: #### L 300.3900, L100.0100, L501.4021, L500.2500 ####[facility] [address] [place], [address] Chloride [Moles/Vol] 97 mmol/L Low 98-108 [facility] Comment on above: Performed By: #### L 300.3900, L100.0100, L501.4021, L500.2500 ####[facility] [address] [place], [address] CO2 [Moles/Vol] 25.7 mmol/L Normal 21.0-32.0 [facility] Comment on above: Performed By: #### L 300.3900, L100.0100, L501.4021, L500.2500 ####[facility] [address] [place], [address] Creatinine [Mass/Vol] 1.01 mg/dL Normal 0.70-1.20 [facility] Comment on above: Performed By: #### L 300.3900, L100.0100, L501.4021, L500.2500 ####[facility] [address] [place], [address] ECRCL 120.67 ml/min Normal 50-250 [facility] Comment on above: Performed By: #### L 300.3900, L100.0100, L501.4021, L500.2500 ####[facility] [address] [place], [address] GAP 10 Normal 5-15 [facility] Comment on above: Performed By: #### L 300.3900, L100.0100, L501.4021, L500.2500 ####[facility] [address] [place], [address] GFR/1.73 sq M.predicted among non-blacks MDRD (S/P/Bld) [Vol rate/Area] 89 mL/min/{1.73_m2} Normal >60 [facility] Comment on above: Result Comment: mL/m in/1.73m2 CKD-EPI Creatinine Equation (2020) Performed By: #### L 300.3900, L100.0100, L501.4021, L500.2500 ####[facility] [address] [place], [address] Glucose [Mass/Vol] 180 mg/dL High 70-99 [facility] Comment on above: Performed By: #### L 300.3900, L100.0100, L501.4021, L500.2500 ####[facility] [address] [place], [address] Potassium [Moles/Vol] 4.1 mmol/L Normal 3.3-5.1 [facility] Comment on above: Performed By: #### L 300.3900, L100.0100, L501.4021, L500.2500 ####[facility] [address] [place], [address] Sodium [Moles/Vol] 133 mmol/L Normal 133-145 [facility] Comment on above: Performed By: #### L 300.3900, L100.0100, L501.4021, L500.2500 ####[facility] [address] [place], [address] Urea nitrogen [Mass/Vol] 14 mg/dL Normal 4-19 [facility] Comment on above: Performed By: #### L 300.3900, L100.0100, L501.4021, L500.2500 ####[facility] [address] [place], [address] Basophil percentageOrdered B y: Nguyễn Al on 12-19-2024 Basophils/100 WBC (Bld) 0.5 % 0-1 [facility] CBC W/Diff, Automatedon 11-27 Absolute Lymph 1.20 X10 3/uL Normal 0.83-4.51 [facility] Comment on above: Performed By: #### L 300.3900, L100.0100, L501.4021, L500.2500 ####[facility] [address] [place], [address] Absolute Neut 6.1 X10 3/uL Normal 2.0-7.7 [facility] Comment on above: Performed By: #### L 300.3900, L100.0100, L501.4021, L500.2500 ####[facility] [address] [place], [address] Basophils/100 WBC (Bld) 0.5 % Normal 0-1 [facility] Comment on above: Performed By: #### L 300.3900, L100.0100, L501.4021, L500.2500 ####[facility] [address] [place], [address] Eosinophils/100 WBC (Bld) 1.3 % Normal 0-5 [facility] Comment on above: Performed By: #### L 300.3900, L100.0100, L501.4021, L500.2500 ####[facility] [address] [place], [address] Erythrocyte distribution width (RBC) [Ratio] 13.9 % Normal 11.6-14.6 [facility] Comment on above: Performed By: #### L 300.3900, L100.0100, L501.4021, L500.2500 ####[facility] [address] [place], [address] Hematocrit (Bld) [Volume fraction] 44.2 % Normal 40-54 [facility] Comment on above: Performed By: #### L 300.3900, L100.0100, L501.4021, L500.2500 ####[facility] [address] [place], [address] Hemoglobin (Bld) [Mass/Vol] 13.7 g/dL Normal 13.0-16.5 [facility] Comment on above: Performed By: #### L 300.3900, L100.0100, L501.4021, L500.2500 ####[facility] [address] [place], [address] IG% 0.200 Normal 0.0-0.9 [facility] Comment on above: Result Comment: IG% - Immature Granulocytes (promyelocytes, myelocytes andmetamyelocytes) > 1% indicates that a LEFT SHIFT is Present. Performed By: #### L 300.3900, L100.0100, L501.4021, L500.2500 ####[facility] [address] [place], [address] Lymphocytes/100 WBC (Bld) 14.4 % Low 19-41 [facility] Comment on above: Performed By: #### L 300.3900, L100.0100, L501.4021, L500.2500 ####[facility] [address] [place], [address] MCH (RBC) [Entitic mass] 27.2 pg Normal 27.0-32.0 [facility] Comment on above: Performed By: #### L 300.3900, L100.0100, L501.4021, L500.2500 ####[facility] [address] [place], [address] MCHC (RBC) [Mass/Vol] 31.0 g/dL Low 32-36 [facility] Comment on above: Performed By: #### L 300.3900, L100.0100, L501.4021, L500.2500 ####[facility] [address] [place], [address] MCV (RBC) [Entitic vol] 87.7 fL Normal 80-94 [facility] Comment on above: Performed By: #### L 300.3900, L100.0100, L501.4021, L500.2500 ####[facility] [address] [place], [address] Monocytes/100 WBC (Bld) 10.6 % High 0-10 [facility] Comment on above: Performed By: #### L 300.3900, L100.0100, L501.4021, L500.2500 ####[facility] [address] [place], [address] Neutrophils/100 WBC (Bld) 73.0 % High 47-70 [facility] Comment on above: Performed By: #### L 300.3900, L100.0100, L501.4021, L500.2500 ####[facility] [address] [place], [address] Nucleated RBC (Bld) [#/Vol] 0 10*3/uL Normal 0-5 [facility] Comment on above: Performed By: #### L 300.3900, L100.0100, L501.4021, L500.2500 ####[facility] [address] [place], [address] Platelet mean volume (Bld) [Entitic vol] 9.8 fL Normal 6.2-12.0 [facility] Comment on above: Performed By: #### L 300.3900, L100.0100, L501.4021, L500.2500 ####[facility] [address] [place], [address] Platelets (Bld) [#/Vol] 177 10*3/uL Normal 150-450 [facility] Comment on above: Performed By: #### L 300.3900, L100.0100, L501.4021, L500.2500 ####[facility] [address] [place], [address] RBC (Bld) [#/Vol] 5.04 10*6/uL Normal 4.6-6.2 [facility] Comment on above: Performed By: #### L 300.3900, L100.0100, L501.4021, L500.2500 ####[facility] [address] [place], [address] RDW SD 44.8 fl High 35.1-43.9 [facility] Comment on above: Performed By: #### L 300.3900, L100.0100, L501.4021, L500.2500 ####[facility] [address] [place], [address] WBC (Bld) [#/Vol] 8.4 10*3/uL Normal 4.4-11.0 [facility] Comment on above: Performed By: #### L 300.3900, L100.0100, L501.4021, L500.2500 ####[facility] [address] [place], [address] Carbon dioxide, total [Moles /volume] in Central venous bloodOrdered By: Nguyễn Al on 12-19-2024 CO2 [Moles/Vol] 25.7 mmol/L 21.0-32.0 [facility] Chest 1 View (Portable)on Chest 1 View (Portable) Normal [facility] Chloride assayOrdered By: Shankar Al on 12-19-2024 Chloride [Moles/Vol] 97 mmol/L Low 98-108 [facility] Emergency Department Summary on 12-19-2024 Emergency Department Summary Normal [facility] Eosinophil percentageOrdered By: Nguyễn Al on 12-19-2024 Eosinophils/100 WBC (Bld) 1.3 % 0-5 [facility] Erythrocyte distribution wid th ratioOrdered By: Nguyễn Al on 12-19-2024 Erythrocyte distribution width (RBC) [Ratio] 13.9 % 11.6-14.6 [facility] Erythrocyte distribution wid th standard deviationOrdered By: Nguyễn Al on 12-19-2024 Erythrocyte distribution width (RBC) [Ratio] 44.8 fl High 35.1-43.9 [facility] Glomerular filtration rate ( GFR) estimation/1.73 sq m using serum, plasma, or whole bOrdered By: Nguyễn Al on 12-19-2024 GFR/1.73 sq M.predicted among non-blacks MDRD (S/P/Bld) [Vol rate/Area] 89 mL/min/{1.73_m2} >60 [facility] Comment on above: mL/min/1.73m2 CKD-EP I Creatinine Equation (2020) Hematocrit Auto (Bld) [Volum e fraction]Ordered By: Nguyễn Al on 12-19-2024 Hematocrit (Bld) [Volume fraction] 44.2 % 40-54 [facility] Hemoglobin measurementOrdere d By: Nguyễn Al on 12-19-2024 Hemoglobin (Bld) [Mass/Vol] 13.7 g/dL 13.0-16.5 [facility] Immature granulocytes/100 WB C Auto (Bld)Ordered By: Nguyễn Al on 12-19-2024 Immature granulocytes/100 WBC (Bld) 0.200 % 0.0-0.9 [facility] Comment on above: IG% - Immature Granu locytes (promyelocytes, myelocytes and metamyelocytes) > 1% indicates that a LEFT SHIFT is Present. International normalized rat io (INR) calculationOrdered By: Nguyễn Al on 12-19-2024 INR Coag (Bld) [Relative time] 1.5 {INR} [facility] L501.4021on 12-19-2024 Trop T High Sen 11 ng/L Normal <=22 [facility] Comment on above: Performed By: #### L 300.3900, L100.0100, L501.4021, L500.2500 ####[facility] [address] [place], [address] MCV (mean corpuscular volume ) determinationOrdered By: Nguyễn Al on 12-19-2024 MCV (RBC) [Entitic vol] 87.7 fL 80-94 [facility] Mean corpuscular hemoglobin (MCH) determinationOrdered By: Nguyễn Al on 12-19-2024 MCH (RBC) [Entitic mass] 27.2 pg 27.0-32.0 [facility] Mean corpuscular hemoglobin concentration (MCHC) determinationOrdered By: Nguyễn Al on 12-19-2024 MCHC (RBC) [Mass/Vol] 31.0 g/dL Low 32-36 [facility] [place] Mean platelet volume determi nationOrdered By: Nguyễn Al on 12-19-2024 Platelet mean volume (Bld) [Entitic vol] 9.8 fL 6.2-12.0 [facility] Monocyte percentageOrdered B y: Nguyễn Al on 12-19-2024 Monocytes/100 WBC (Bld) 10.6 % High 0-10 [facility] Neutrophil percentageOrdered By: Nguyễn Al on 12-19-2024 Neutrophils/100 WBC (Bld) 73.0 % High 47-70 [facility] Nucleated red blood cell per centageOrdered By: Nguyễn Al on 12-19-2024 Nucleated RBC/100 WBC (Bld) [Ratio] 0 % 0-5 [facility] Platelet countOrdered By: Shankar Al on 12-19-2024 Platelets (Bld) [#/Vol] 177 10*3/uL 150-450 [facility] Potassium measurement (mass/ volume)Ordered By: Nguyễn Al on 12-19-2024 Potassium (Unsp spec) [Mass/Vol] 4.1 mmol/L 3.3-5.1 [facility] Prothrombin Time w/INRon INR Coag (PPP) [Relative time] 1.5 {INR} Normal [facility] Comment on above: Performed By: #### L 300.3900, L100.0100, L501.4021, L500.2500 ####[facility] [id number] [place], [address] PT Coag (PPP) [Time] 18.1 s High 11.7-14.9 [facility] Comment on above: Performed By: #### L 300.3900, L100.0100, L501.4021, L500.2500 ####[facility] [id number] [place], [address] Prothrombin timeOrdered By: Nguyễn Al on 12-19-2024 PT Coag (PPP) [Time] 18.1 s High 11.7-14.9 [facility] RBC Auto (Bld) [#/Vol]Ordere d By: Nguyễn Al on 12-19-2024 RBC (Bld) [#/Vol] 5.04 10*6/uL 4.6-6.2 [facility] Serum creatinine measurement (mass/volume)Ordered By: Nguyễn Al on 12-19-2024 Creatinine [Mass/Vol] 1.01 mg/dL 0.70-1.20 [facility] [place] Serum glucose measurement (m ass/volume)Ordered By: Nguyễn Al on 12-19-2024 Glucose [Mass/Vol] 180 mg/dL High 70-99 [facility] Serum or plasma calcium scott urement (mass/volume)Ordered By: Nguyễn Al on 12-19-2024 Calcium [Mass/Vol] 8.8 mg/dL 7.6-11.0 [facility] Serum or plasma urea nitroge n measurement (mass/volume)Ordered By: Nguyễn Al on 12-19-2024 Urea nitrogen [Mass/Vol] 14 mg/dL 4-19 [facility] Sodium levelOrdered By: Nguyễn Al on 12-19-2024 Sodium [Moles/Vol] 133 mmol/L 133-145 [facility] Troponin T.cardiac [Mass/vol ume] in Serum or Plasma by High sensitivity methodOrdered By: Nguyễn Al on 12-19-2024 Troponin T.cardiac High sensitivity method [Mass/Vol] 11 ng/L <22 [facility] White blood cell (WBC) count Ordered By: Nguyễn Al on 12-19-2024 WBC (Bld) [#/Vol] 8.4 10*3/uL 4.4-11.0 [facility] .GFRon 12-13-2024 Estimated Glomerular Filtration Rate [...] ADIFF, DIMER, CBC, PBNP, TROPHS #### [address] [address] BMPon 12-13-2024 BUN/Creatinine Ratio 29 ratio High 7-27 [facility] Comment on above: Order Comment: Speci men hemolyzed. Notified Romay @12/13/2024 09:23:59 EDT BP Performed By: #### A ELY REYES, JULIÁN, MG, GFR, ADIFF, DIMER, CBC, PBNP, TROPHS #### [address] [address] Calcium [Mass/Vol] 8.8 mg/dL Normal 8.4-10.2 [facility] Comment on above: Order Comment: Speci men hemolyzed. Notified Damon @12/13/2024 09:23:59 EDT BP Performed By: #### A ELY REYES, BMP, MG, GFR, ADIFF, DIMER, CBC, PBNP, TROPHS #### [address] [address] Chloride [Moles/Vol] 102 mmol/L Normal 98-107 [facility] Comment on above: Order Comment: Speci men hemolyzed. Notified Kweliaeliezery @12/13/2024 09:23:59 EDT BP Performed By: #### A ELY REYES, BMP, MG, GFR, ADIFF, DIMER, CBC, PBNP, TROPHS #### [address] [address] CO2 [Moles/Vol] 32 mmol/L High 22-29 [facility] Comment on above: Order Comment: Speci men hemolyzed. Notified Kweliaeliezery @12/13/2024 09:23:59 EDT BP Performed By: #### A ELY REYES, BMP, MG, GFR, ADIFF, DIMER, CBC, PBNP, TROPHS #### [address] [address] Creatinine [Mass/Vol] 0.73 mg/dL Normal 0.67-1.17 [facility] Comment on above: Order Comment: Speci men hemolyzed. Notified Kweliaeliezery @12/13/2024 09:23:59 EDT BP Performed By: #### A ELY ERYES, BMP, MG, GFR, ADIFF, DIMER, CBC, PBNP, TROPHS #### [address] [address] Electrolyte Balance 4.0 mEq/L Normal 4.0-15.0 [facility] Comment on above: Order Comment: Speci men hemolyzed. Notified Kweliaeliezery @12/13/2024 09:23:59 EDT BP Performed By: #### A ELY REYES, BMP, MG, GFR, ADIFF, DIMER, CBC, PBNP, TROPHS #### [address] [address] Glucose [Mass/Vol] 137 mg/dL High 70-105 [facility] Comment on above: Order Comment: Speci men hemolyzed. Notified Kweliaeliezery @12/13/2024 09:23:59 EDT BP Performed By: #### A ELY REYES, BMP, MG, GFR, ADIFF, DIMER, CBC, PBNP, TROPHS #### [address] [address] Potassium [Moles/Vol] 3.9 mmol/L Normal 3.5-5.1 [facility] Comment on above: Order Comment: Speci men hemolyzed. Notified Kweliaeliezery @12/13/2024 09:23:59 EDT BP Performed By: #### A ELY REYES, BMP, MG, GFR, ADIFF, DIMER, CBC, PBNP, TROPHS #### [address] [address] Sodium [Moles/Vol] 138 mmol/L Normal 136-145 [facility] Comment on above: Order Comment: Speci men hemolyzed. Notified Kweliaeliezery @12/13/2024 09:23:59 EDT BP Performed By: #### A ELY REYES, JULIÁN, MG, GFR, ADIFF, DIMER, CBC, PBNP, TROPHS #### [address] [address] Urea nitrogen [Mass/Vol] 21 mg/dL High 12-13 [facility] Comment on above: Order Comment: Speci men hemolyzed. Notified Kweliaeliezery @12/13/2024 09:23:59 EDT BP Performed By: #### A ELY REYES, JULIÁN, MG, GFR, ADIFF, DIMER, CBC, PBNP, TROPHS #### [address] [address] LABORATORYOrdered By: SYSTEM SYSTEM on 12-13-2024 Calcium [...] 12-13-2024 Magnesium [Mass/Vol] 1.7 mg/dL Low 1.8-2.4 [facility] Comment on above: Performed By: #### A ERIC, MDW, BMP, MG, GFR, ADIFF, DIMER, CBC, PBNP, TROPHS #### [address] [place], [place] [address] .GFRon 12-12-2024 Estimated Glomerular Filtration Rate 111 [...] ADIFF, DIMER, CBC, PBNP, TROPHS #### [address] [address] BMPon 12-12-2024 BUN/Creatinine Ratio 22 ratio Normal 7-27 [facility] Comment on above: Performed By: #### A ELY REYES, BMP, MG, GFR, ADIFF, DIMER, CBC, PBNP, TROPHS #### [address] [address] Calcium [Mass/Vol] 9.2 mg/dL Normal 8.4-10.2 [facility] Comment on above: Performed By: #### A ELY REYES, BMP, MG, GFR, ADIFF, DIMER, CBC, PBNP, TROPHS #### [address] [address] Chloride [Moles/Vol] 103 mmol/L Normal 98-107 [facility] Comment on above: Performed By: #### A ELY REYES, BMP, MG, GFR, ADIFF, DIMER, CBC, PBNP, TROPHS #### [address] [address] CO2 [Moles/Vol] 32 mmol/L High 22-29 [facility] Comment on above: Performed By: #### A ELY REYES, BMP, MG, GFR, ADIFF, DIMER, CBC, PBNP, TROPHS #### [address] [address] Creatinine [Mass/Vol] 0.69 mg/dL Normal 0.67-1.17 [facility] Comment on above: Performed By: #### A ELY REYES, BMP, MG, GFR, ADIFF, DIMER, CBC, PBNP, TROPHS #### [address] [address] Electrolyte Balance 7.0 mEq/L Normal 4.0-15.0 [facility] Comment on above: Performed By: #### A ELY REYES, BMP, MG, GFR, ADIFF, DIMER, CBC, PBNP, TROPHS #### [address] [address] Glucose [Mass/Vol] 115 mg/dL High 70-105 [facility] Comment on above: Performed By: #### A ELY REYES, BMP, MG, GFR, ADIFF, DIMER, CBC, PBNP, TROPHS #### [address] [address] Potassium [Moles/Vol] 3.8 mmol/L Normal 3.5-5.1 [facility] Comment on above: Performed By: #### A ELY REYES, BMP, MG, GFR, ADIFF, DIMER, CBC, PBNP, TROPHS #### [address] [address] Sodium [Moles/Vol] 142 mmol/L Normal 136-145 [facility] Comment on above: Performed By: #### A ELY REYES, BMP, MG, GFR, ADIFF, DIMER, CBC, PBNP, TROPHS #### [address] [address] Urea nitrogen [Mass/Vol] 15 mg/dL Normal 7-18 [facility] Comment on above: Performed By: #### A ELY REYES, BMP, MG, GFR, ADIFF, DIMER, CBC, PBNP, TROPHS #### [address] [address] LABORATORYOrdered By: SYSTEM SYSTEM on 12-12-2024 Calcium [...] ng/L Male: 0-76 ng/L Testing performed on elastic.io using a homogeneous sandwich chemiluminescent immunoassay based on Webcrunch technology. Urea nitrogen [Mass/Vol] 15 mg/dL Normal 7 - 18 mg/dL AO ADM SS Urea nitrogen/Creatinine [Mass ratio] 22 ratio Normal 7 - 27 ratio AO ADM SS MGon 12-12-2024 Magnesium [Mass/Vol] 2.0 mg/dL Normal 1.8-2.4 [facility] Comment on above: Performed By: #### A ELY REYES, BMP, MG, GFR, ADIFF, DIMER, CBC, PBNP, TROPHS #### [address] [place], [place] [address] TROPHSon 12-12-2024 High Sensitivity Troponin I 12 ng/L Normal 0-76 [facility] Comment on above: Result Comment: High Sensitive Troponin I Reference Ranges: Female: 0-51 ng/L Male: 0-76 ng/L Testing performed on elastic.io using a homogeneous sandwich chemiluminescent immunoassay based on Webcrunch technology. Performed By: #### A ELY REYES, BMP, MG, GFR, ADIFF, DIMER, CBC, PBNP, TROPHS #### [address] [address] XR CHEST 1 VIEWon 12-12-2024 XR CHEST [...] 6:38:29 AM Ordering Provider: VENITA BROTHERS Normal [facility] .Auto Diffon 12-11-2024 Basophil, Absolute 0.0 10 3/mcL Normal 0.0-0.3 [facility] Comment on above: Performed By: #### A ELY REYES, JULIÁN, MG, GFR, ADIFF, DIMER, CBC, PBNP, TROPHS #### [address] [address] Basophils/100 WBC (Bld) 0.5 % Normal 0.0-2.5 [facility] Comment on above: Performed By: #### A ELY REYES, BMP, MG, GFR, ADIFF, DIMER, CBC, PBNP, TROPHS #### [address] [address] Eosinophil, Absolute 0.1 10 3/mcL Normal 0.0-0.7 [facility] Comment on above: Performed By: #### A ELY REYES, BMP, MG, GFR, ADIFF, DIMER, CBC, PBNP, TROPHS #### [address] [address] Eosinophils/100 WBC (Bld) 1.3 % Normal 0.0-6.0 [facility] Comment on above: Performed By: #### A ELY REYES, BMP, MG, GFR, ADIFF, DIMER, CBC, PBNP, TROPHS #### [address] [address] Lymphocyte, Absolute 0.8 10 3/mcL Low 0.9-4.3 [facility] Comment on above: Performed By: #### A ELY REYES, BMP, MG, GFR, ADIFF, DIMER, CBC, PBNP, TROPHS #### [address] [address] Lymphocytes/100 WBC (Bld) 9.5 % Low 20.0-40.0 [facility] Comment on above: Performed By: #### A ELY REYES, BMP, MG, GFR, ADIFF, DIMER, CBC, PBNP, TROPHS #### [address] [address] Monocyte, Absolute 0.9 10 3/mcL Normal 0.1-1.4 [facility] Comment on above: Performed By: #### A MD ERICW, BMP, MG, GFR, ADIFF, DIMER, CBC, PBNP, TROPHS #### [address] [address] Monocytes/100 WBC (Bld) 10.0 % Normal 2.0-13.0 [facility] Comment on above: Performed By: #### A ELY REYES, BMP, MG, GFR, ADIFF, DIMER, CBC, PBNP, TROPHS #### [address] [address] Neutrophils/100 WBC (Bld) 78.7 % High 50.0-75.0 [facility] Comment on above: Performed By: #### A ELY REYES, BMP, MG, GFR, ADIFF, DIMER, CBC, PBNP, TROPHS #### [address] [address] .GFRon 12-11-2024 Estimated Glomerular Filtration Rate 105 [...] ADIFF, DIMER, CBC, PBNP, TROPHS #### [address] [address] .MDWon 12-11-2024 Monocyte Distribution Width 18.16 Normal 0.00-20.00 [facility] Comment on above: Result Comment: For ED adult patients suspected of sepsis, MDW<=20.0 does not rule out sepsis or risk of sepsis Performed By: #### A ELY REYES, BMP, MG, GFR, ADIFF, DIMER, CBC, PBNP, TROPHS #### [address] [address] .NEUABSon 12-11-2024 Neutrophil, Absolute 6.9 10 3/mcL Normal 2.3-8.1 [facility] Comment on above: Performed By: #### A ELY REYES, JULIÁN, MG, GFR, ADIFF, DIMER, CBC, PBNP, TROPHS #### [address] [address] CBCon 12-11-2024 Erythrocyte distribution width (RBC) [Ratio] 14.9 % Normal 11.5-15.5 [facility] Comment on above: Performed By: #### A ELY REYES, BMP, MG, GFR, ADIFF, DIMER, CBC, PBNP, TROPHS #### [address] [address] Hematocrit (Bld) [Volume fraction] 43.0 % Normal 40.0-52.0 [facility] Comment on above: Performed By: #### A ELY REYES, BMP, MG, GFR, ADIFF, DIMER, CBC, PBNP, TROPHS #### [address] [address] Hgb 14.0 G/dL Normal 13.0-17.5 [facility] Comment on above: Performed By: #### A ELY REYES, JULIÁN, MG, GFR, ADIFF, DIMER, CBC, PBNP, TROPHS #### [address] [address] MCH (RBC) [Entitic mass] 28.2 pg Normal 27.0-33.0 [facility] Comment on above: Performed By: #### A ELY REYES, JULIÁN, MG, GFR, ADIFF, DIMER, CBC, PBNP, TROPHS #### [address] [address] MCHC 32.7 G/dL Normal 32.0-36.0 [facility] Comment on above: Performed By: #### A ELY REYES, BMP, MG, GFR, ADIFF, DIMER, CBC, PBNP, TROPHS #### [address] [place] [address] MCV (RBC) [Entitic vol] 86.1 fL Normal 81.0-100.0 [facility] Comment on above: Performed By: #### A ELY REYES, BMP, MG, GFR, ADIFF, DIMER, CBC, PBNP, TROPHS #### [address] [address] Platelet 208 10 3/mcL Normal 150-450 [facility] Comment on above: Performed By: #### A ELY REYES, BMP, MG, GFR, ADIFF, DIMER, CBC, PBNP, TROPHS #### [address] [address] Platelet mean volume (Bld) [Entitic vol] 7.9 fL Normal 6.4-10.5 [facility] Comment on above: Performed By: #### A ELY REYES, BMP, MG, GFR, ADIFF, DIMER, CBC, PBNP, TROPHS #### [address] [address] RBC 4.99 10 6/mcL Normal 4.50-6.00 [facility] Comment on above: Performed By: #### A ELY REYES, BMP, MG, GFR, ADIFF, DIMER, CBC, PBNP, TROPHS #### [address] [address] WBC 8.8 10 3/mcL Normal 4.5-10.8 [facility] Comment on above: Performed By: #### A ELY REYES, BMP, MG, GFR, ADIFF, DIMER, CBC, PBNP, TROPHS #### [address] [address] CMPon 12-11-2024 Albumin Level 2.8 G/dL Low 3.5-5.0 [facility] Comment on above: Performed By: #### A ELY REYES, BMP, MG, GFR, ADIFF, DIMER, CBC, PBNP, TROPHS #### [address] [address] Albumin/Globulin [Mass ratio] 0.6 {ratio} Low 1.1-2.5 [facility] Comment on above: Performed By: #### A ELY REYES, BMP, MG, GFR, ADIFF, DIMER, CBC, PBNP, TROPHS #### [address] [address] ALP [Catalytic activity/Vol] 100 U/L Normal 40-135 [facility] Comment on above: Performed By: #### A ELY REYES, BMP, MG, GFR, ADIFF, DIMER, CBC, PBNP, TROPHS #### [place] [address] ALT [Catalytic activity/Vol] 18 U/L Normal 16-63 [facility] Comment on above: Performed By: #### A ELY REYES, BMP, MG, GFR, ADIFF, DIMER, CBC, PBNP, TROPHS #### [place] [address] AST [Catalytic activity/Vol] 8 U/L Low 10-40 [facility] Comment on above: Performed By: #### A ELY REYES, BMP, MG, GFR, ADIFF, DIMER, CBC, PBNP, TROPHS #### [place] [id number] Bili Total 0.3 mg/dL Normal 0.2-1.0 [facility] Comment on above: Result Comment: Use of this assay is not recommended for patients undergoing treatment with eltrombopag due to the potential for falsely elevated results. Performed By: #### A ELY REYES, BMP, MG, GFR, ADIFF, DIMER, CBC, PBNP, TROPHS #### [address] [address] BUN/Creatinine Ratio 12 ratio Normal 7-27 [facility] Comment on above: Performed By: #### A ELY REYES, BMP, MG, GFR, ADIFF, DIMER, CBC, PBNP, TROPHS #### [place] [id number] Calcium [Mass/Vol] 8.9 mg/dL Normal 8.4-10.2 [facility] Comment on above: Performed By: #### A ELY REYES, BMP, MG, GFR, ADIFF, DIMER, CBC, PBNP, TROPHS #### [address] [address] Chloride [Moles/Vol] 98 mmol/L Normal 98-107 [facility] Comment on above: Performed By: #### A ELY REYES, BMP, MG, GFR, ADIFF, DIMER, CBC, PBNP, TROPHS #### [address] [address] CO2 [Moles/Vol] 32 mmol/L High 22-29 [facility] Comment on above: Performed By: #### A ELY REYES, BMP, MG, GFR, ADIFF, DIMER, CBC, PBNP, TROPHS #### [place] [address] Creatinine [Mass/Vol] 0.82 mg/dL Normal 0.67-1.17 [facility] Comment on above: Performed By: #### A ELY REYES, BMP, MG, GFR, ADIFF, DIMER, CBC, PBNP, TROPHS #### [address] [address] Electrolyte Balance 4.0 mEq/L Normal 4.0-15.0 [facility] Comment on above: Performed By: #### A ELY REYES, BMP, MG, GFR, ADIFF, DIMER, CBC, PBNP, TROPHS #### [address] [address] Globulin 4.6 G/dL High 2.7-4.4 [facility] Comment on above: Performed By: #### A ELY REYES, BMP, MG, GFR, ADIFF, DIMER, CBC, PBNP, TROPHS #### [address] [address] Glucose [Mass/Vol] 165 mg/dL High 70-105 [facility] Comment on above: Performed By: #### A ELY REYES, BMP, MG, GFR, ADIFF, DIMER, CBC, PBNP, TROPHS #### [address] [address] Potassium [Moles/Vol] 3.6 mmol/L Normal 3.5-5.1 [facility] Comment on above: Performed By: #### A ELY REYES, BMP, MG, GFR, ADIFF, DIMER, CBC, PBNP, TROPHS #### [address] [address] Sodium [Moles/Vol] 134 mmol/L Low 136-145 [facility] Comment on above: Performed By: #### A ELY REYES, BMP, MG, GFR, ADIFF, DIMER, CBC, PBNP, TROPHS #### [address] [place], [place] [address] Total Protein 7.4 G/dL Normal 6.4-8.2 [facility] Comment on above: Performed By: #### A ELY REYES, BMP, MG, GFR, ADIFF, DIMER, CBC, PBNP, TROPHS #### [address] [address] Urea nitrogen [Mass/Vol] 10 mg/dL Normal 7-18 [facility] Comment on above: Performed By: #### A ELY REYES, BMP, MG, GFR, ADIFF, DIMER, CBC, PBNP, TROPHS #### [address] [address] [address] ANGIOGRAPHY CHEST W/CONTR [place] 12-11-2024 CT [...] GFR, ADIFF, DIMER, CBC, PBNP, TROPHS #### [address] [place], [place] [address] LABORATORYOrdered By: SYSTEM SYSTEM on 12-11-2024 Troponin I.cardiac DL <= 0.01 ng/mL [Mass/Vol] 10 ng/L Normal 0 - 76 ng/L AO ADM SS Comment on above: Interpretive Data: H igh Sensitive Troponin I Reference Ranges: Female: 0-51 ng/L Male: 0-76 ng/L Testing performed on elastic.io using a homogeneous sandwich chemiluminescent immunoassay based on Webcrunch technology. Albumin BCP dye [Mass/Vol] 2.8 G/dL [...] ng/L Male: 0-76 ng/L Testing performed on elastic[employer]io using a homogeneous sandwich chemiluminescent immunoassay based on Webcrunch technology. Urea nitrogen [Mass/Vol] 10 mg/dL Normal [...] GFR, ADIFF, DIMER, CBC, PBNP, TROPHS #### [address] [place], [place] [address] No Panel Informationon 12-11 Legionella Urine Ag Presumptive negative for L. pneumophila serogroup 1 antigen in urine, suggesting no recent or current infection. Legionnaire's disease cannot be ruled out since other serogroups and species may also cause disease. [facility] Streptococcus Pneumoniae Urine Antig Presumptive negative for pneumococcal pneumonia, suggesting no current or recent pneumococcal infection. Infection due to Strep pneumoniae cannot be ruled out since the antigen present in the sample may be below the detection limit of the test. [facility] Comment on above: This test has not [...] GFR, ADIFF, DIMER, CBC, PBNP, TROPHS #### [address] [place], [place] [address] [facility] High Sensitivity Troponin I 10 ng/L Normal 0-76 [facility] Comment on above: Result Comment: High Sensitive Troponin I Reference Ranges: Female: 0-51 ng/L Male: 0-76 ng/L Testing performed on Dimension EXL using a homogeneous sandwich chemiluminescent immunoassay based on [employer] technology. Performed By: #### A ELY REYES, BMP, MG, GFR, ADIFF, DIMER, CBC, PBNP, TROPHS #### [address] [place], [place] [address] High Sensitivity Troponin I 10 ng/L Normal 0-76 [facility] Comment on above: Result Comment: High Sensitive Troponin I Reference Ranges: Female: 0-51 ng/L Male: 0-76 ng/L Testing performed on Dimension EXL using a homogeneous sandwich chemiluminescent immunoassay based on LOC[employer] technology. Performed By: #### A ELY REYES, BMP, MG, GFR, ADIFF, DIMER, CBC, PBNP, TROPHS #### [address] [place], [place] [address] XR CHEST 1 VIEWon 12-11-2024 XR CHEST [...] Basophil, Absolute 0.0 10 3/mcL Normal 0.0-0.3 [facility] Comment on above: Performed By: #### C BC, MG, GFR, ADIFF, BMP, ANEU #### [address] [address] Basophils/100 WBC (Bld) 0.8 % Normal 0.0-2.5 [facility] Comment on above: Performed By: #### C BC, MG, GFR, ADIFF, BMP, ANEU #### [address] [address] Eosinophil, Absolute 0.1 10 3/mcL Normal 0.0-0.7 [facility] Comment on above: Performed By: #### C BC, MG, GFR, ADIFF, BMP, ANEU #### [address] [address] Eosinophils/100 WBC (Bld) 1.7 % Normal 0.0-6.0 [facility] Comment on above: Performed By: #### C BC, MG, GFR, ADIFF, BMP, ANEU #### [address] [address] Lymphocyte, Absolute 0.9 10 3/mcL Normal 0.9-4.3 [facility] Comment on above: Performed By: #### C BC, MG, GFR, ADIFF, BMP, ANEU #### [address] [address] Lymphocytes/100 WBC (Bld) 15.5 % Low 20.0-40.0 [facility] Comment on above: Performed By: #### C BC, MG, GFR, ADIFF, BMP, ANEU #### [address] [address] Monocyte, Absolute 0.6 10 3/mcL Normal 0.1-1.4 [facility] Comment on above: Performed By: #### C BC, MG, GFR, ADIFF, BMP, ANEU #### [address] [address] Monocytes/100 WBC (Bld) 11.2 % Normal 2.0-13.0 [facility] Comment on above: Performed By: #### C BC, MG, GFR, ADIFF, BMP, ANEU #### [address] [address] Neutrophils/100 WBC (Bld) 70.8 % Normal 50.0-75.0 [facility] Comment on above: Performed By: #### C BC, MG, GFR, ADIFF, BMP, ANEU #### [address] [address] .GFRon 11-28-2024 Estimated Glomerular Filtration Rate 107 ml/min/1.73sqm Normal [facility] Comment on [...] BC, MG, GFR, ADIFF, BMP, ANEU #### [address] [address] .NEUABSon 11-28-2024 Neutrophil, Absolute 4.1 10 3/mcL Normal 2.3-8.1 [facility] Comment on above: Performed By: #### C BC, MG, GFR, ADIFF, BMP, ANEU #### [address] [address] BMPon 11-28-2024 BUN/Creatinine Ratio 11.7 ratio Normal 10.0-22.0 [facility] Comment on above: Performed By: #### C BC, MG, GFR, ADIFF, BMP, ANEU #### [address] [address] Calcium [Mass/Vol] 9.2 mg/dL Normal 8.7-10.4 [facility] Comment on above: Performed By: #### C BC, MG, GFR, ADIFF, BMP, ANEU #### [address] [address] Chloride [Moles/Vol] 101 mmol/L Normal 98-110 [facility] Comment on above: Performed By: #### C BC, MG, GFR, ADIFF, BMP, ANEU #### [address] [address] CO2 [Moles/Vol] 31 mmol/L Normal 22-32 [facility] Comment on above: Performed By: #### C BC, MG, GFR, ADIFF, BMP, ANEU #### [address] [address] Creatinine [Mass/Vol] 0.77 mg/dL Normal 0.60-1.40 [facility] Comment on above: Result Comment: Test ing performed on Evgen analyzer using enzymatic creatinine methodology. Performed By: #### C BC, MG, GFR, ADIFF, BMP, ANEU #### [place] [id number] Electrolyte Balance 5.0 mEq/L Normal 4.0-15.0 [facility] Comment on above: Performed By: #### C BC, MG, GFR, ADIFF, BMP, ANEU #### [address] [address] Glucose [Mass/Vol] 100 mg/dL Normal 70-110 [facility] [facility] Comment on above: Performed By: #### C BC, MG, GFR, ADIFF, BMP, ANEU #### [address] [address] Potassium [Moles/Vol] 4.0 mmol/L Normal 3.5-5.0 [facility] Comment on above: Performed By: #### C BC, MG, GFR, ADIFF, BMP, ANEU #### [address] [address] Sodium [Moles/Vol] 137 mmol/L Normal 136-145 [facility] Comment on above: Performed By: #### C BC, MG, GFR, ADIFF, BMP, ANEU #### [address] [address] Urea nitrogen [Mass/Vol] 9.0 mg/dL Normal 8.0-22.0 [facility] Comment on above: Performed By: #### C BC, MG, GFR, ADIFF, BMP, ANEU #### [place] [address] CBCon 11-28-2024 Erythrocyte distribution width (RBC) [Ratio] 15.1 % Normal 11.5-15.5 [facility] Comment on above: Performed By: #### C BC, MG, GFR, ADIFF, BMP, ANEU #### [place] [address] Hematocrit (Bld) [Volume fraction] 42.1 % Normal 40.0-52.0 [facility] Comment on above: Performed By: #### C BC, MG, GFR, ADIFF, BMP, ANEU #### [place] [address] Hgb 13.8 G/dL Normal 13.0-17.5 [facility] Comment on above: Performed By: #### C BC, MG, GFR, ADIFF, BMP, ANEU #### [place] [address] MCH (RBC) [Entitic mass] 29.0 pg Normal 27.0-33.0 [facility] Comment on above: Performed By: #### C BC, MG, GFR, ADIFF, BMP, ANEU #### [place] [address] MCHC 32.8 G/dL Normal 32.0-36.0 [facility] Comment on above: Performed By: #### C BC, MG, GFR, ADIFF, BMP, ANEU #### [place] [address] MCV (RBC) [Entitic vol] 88.3 fL Normal 81.0-100.0 [facility] Comment on above: Performed By: #### C BC, MG, GFR, ADIFF, BMP, ANEU #### [place] [address] Platelet 195 10 3/mcL Normal 150-450 [facility] Comment on above: Performed By: #### C BC, MG, GFR, ADIFF, BMP, ANEU #### [place] [address] Platelet mean volume (Bld) [Entitic vol] 8.4 fL Normal 6.4-10.5 [facility] Comment on above: Performed By: #### C BC, MG, GFR, ADIFF, BMP, ANEU #### [place] [address] RBC 4.77 10 6/mcL Normal 4.50-6.00 [facility] Comment on above: Performed By: #### C BC, MG, GFR, ADIFF, BMP, ANEU #### [place] [address] WBC 5.8 10 3/mcL Normal 4.5-10.8 [facility] Comment on above: Performed By: #### C BC, MG, GFR, ADIFF, BMP, ANEU #### [place] [address] LABORATORYOrdered By: Moustapha Winslow on 11-28-2024 Blood Glucose Testing Reason Routine (11/28/24 5:00 PM) [facility] Glucose [Mass/Vol] 89 mg/dL Normal 70 - 110 mg/dL [facility] LABORATORYOrdered By: Andrea Mcgarry on 11-28-2024 Blood Glucose Testing Reason Routine (11/28/24 12:01 PM) [facility] Glucose [Mass/Vol] 91 mg/dL Normal 70 - 110 mg/dL [facility] Blood Glucose Testing Reason Routine (11/28/24 8:15 AM) [facility] Glucose [Mass/Vol] 93 mg/dL Normal 70 - 110 mg/dL [facility] LABORATORYOrdered By: SYSTEM SYSTEM on 11-28-2024 [...] above: Interpretive Data: T esting performed on Evgen analyzer using enzymatic creatinine methodology. Electrolyte Balance [...] 0.6 103/mcL Normal 0.1 - 1.4 10^3/mcL Workflow SS Monocytes/100 WBC (Bld) 11.2 % Normal 2.0 - 13.0 % Workflow SS Neutrophils (Bld) [#/Vol] 4.1 103/mcL Normal 2.3 - 8.1 10^3/mcL Workflow SS Neutrophils/100 WBC (Bld) 70.8 % Normal 50.0 - 75.0 % Workflow SS Platelet mean volume (Bld) [Entitic vol] 8.4 fL Normal 6.4 - 10.5 fL Workflow SS Platelets (Bld) [#/Vol] 195 103/mcL Normal 150 - 450 10^3/mcL AH Workflow SS Potassium [Moles/Vol] 4.0 mmol/L Normal 3.5 - 5.0 mEq/L ADM SS RBC (Bld) [#/Vol] 4.77 106/mcL Normal 4.50 - 6.0 0 10^6/mcL Workflow SS Sodium [Moles/Vol] 137 mmol/L Normal 136 - 145 mEq/L ADM SS Urea nitrogen [Mass/Vol] 9.0 mg/dL Normal 8.0 - 22.0 mg/dL ADM SS Urea nitrogen/Creatinine [Mass ratio] 11.7 ratio Normal 10.0 - 22.0 ratio ADM SS WBC (Bld) [#/Vol] 5.8 103/mcL Normal 4.5 - 10.8 10^3/mcL Workflow SS LABORATORYOrdered By: Sharyn nuñez on 11-27-2024 Time of Stated Blood Glucose [id number] [facility] .Auto Diffon 11-26-2024 Basophil, Absolute 0.0 10 3/mcL Normal 0.0-0.3 [facility] Comment on above: Performed By: #### C BC, MG, GFR, ADIFF, BMP, ANEU #### [address] [address] Basophils/100 WBC (Bld) 0.4 % Normal 0.0-2.5 [facility] Comment on above: Performed By: #### C BC, MG, GFR, ADIFF, BMP, ANEU #### [address] [address] Eosinophil, Absolute 0.0 10 3/mcL Normal 0.0-0.7 [facility] Comment on above: Performed By: #### C BC, MG, GFR, ADIFF, BMP, ANEU #### [address] [address] Eosinophils/100 WBC (Bld) 0.7 % Normal 0.0-6.0 [facility] Comment on above: Performed By: #### C BC, MG, GFR, ADIFF, BMP, ANEU #### [address] [address] Lymphocyte, Absolute 0.8 10 3/mcL Low 0.9-4.3 [facility] Comment on above: Performed By: #### C BC, MG, GFR, ADIFF, BMP, ANEU #### [address] [address] Lymphocytes/100 WBC (Bld) 12.2 % Low 20.0-40.0 [facility] Comment on above: Performed By: #### C BC, MG, GFR, ADIFF, BMP, ANEU #### [address] [address] Monocyte, Absolute 0.7 10 3/mcL Normal 0.1-1.4 [facility] Comment on above: Performed By: #### C BC, MG, GFR, ADIFF, BMP, ANEU #### [address] [address] Monocytes/100 WBC (Bld) 11.2 % Normal 2.0-13.0 [facility] Comment on above: Performed By: #### C BC, MG, GFR, ADIFF, BMP, ANEU #### [address] [address] Neutrophils/100 WBC (Bld) 75.5 % High 50.0-75.0 [facility] Comment on above: Performed By: #### C BC, MG, GFR, ADIFF, BMP, ANEU #### [address] [address] .GFRon 11-26-2024 Estimated Glomerular Filtration Rate 103 ml/min/1.73sqm Normal [facility] Comment on [...] BC, MG, GFR, ADIFF, BMP, ANEU #### [address] [address] .NEUABSon 11-26-2024 Neutrophil, Absolute 4.9 10 3/mcL Normal 2.3-8.1 [facility] Comment on above: Performed By: #### C BC, MG, GFR, ADIFF, BMP, ANEU #### [address] [address] BMPon 11-26-2024 BUN/Creatinine Ratio 11.5 ratio Normal 10.0-22.0 [facility] Comment on above: Performed By: #### C BC, MG, GFR, ADIFF, BMP, ANEU #### [address] [address] Calcium [Mass/Vol] 9.0 mg/dL Normal 8.7-10.4 [facility] Comment on above: Performed By: #### C BC, MG, GFR, ADIFF, BMP, ANEU #### [address] [address] Chloride [Moles/Vol] 100 mmol/L Normal 98-110 [facility] Comment on above: Performed By: #### C BC, MG, GFR, ADIFF, BMP, ANEU #### [address] [address] CO2 [Moles/Vol] 29 mmol/L Normal 22-32 [facility] Comment on above: Performed By: #### C BC, MG, GFR, ADIFF, BMP, ANEU #### [address] [address] Creatinine [Mass/Vol] 0.87 mg/dL Normal 0.60-1.40 [facility] Comment on above: Result Comment: Test ing performed on Evgen analyzer using enzymatic creatinine methodology. Performed By: #### C BC, MG, GFR, ADIFF, BMP, ANEU #### [address] [address] Electrolyte Balance 6.0 mEq/L Normal 4.0-15.0 [facility] Comment on above: Performed By: #### C BC, MG, GFR, ADIFF, BMP, ANEU #### [address] [address] Glucose [Mass/Vol] 131 mg/dL High 70-110 [facility] Comment on above: Performed By: #### C BC, MG, GFR, ADIFF, BMP, ANEU #### [address] [address] Potassium [Moles/Vol] 4.4 mmol/L Normal 3.5-5.0 [facility] Comment on above: Performed By: #### C BC, MG, GFR, ADIFF, BMP, ANEU #### [address] [address] Sodium [Moles/Vol] 135 mmol/L Low 136-145 [facility] Comment on above: Performed By: #### C BC, MG, GFR, ADIFF, BMP, ANEU #### [place] [address] Urea nitrogen [Mass/Vol] 10.0 mg/dL Normal 8.0-22.0 [facility] Comment on above: Performed By: #### C BC, MG, GFR, ADIFF, BMP, ANEU #### [place] [address] CBCon 11-26-2024 Erythrocyte distribution width (RBC) [Ratio] 15.0 % Normal 11.5-15.5 [facility] Comment on above: Performed By: #### C BC, MG, GFR, ADIFF, BMP, ANEU #### [place] [address] Hematocrit (Bld) [Volume fraction] 42.6 % Normal 40.0-52.0 [facility] Comment on above: Performed By: #### C BC, MG, GFR, ADIFF, BMP, ANEU #### [place] [address] Hgb 14.2 G/dL Normal 13.0-17.5 [facility] Comment on above: Performed By: #### C BC, MG, GFR, ADIFF, BMP, ANEU #### [place] [address] MCH (RBC) [Entitic mass] 29.5 pg Normal 27.0-33.0 [facility] Comment on above: Performed By: #### C BC, MG, GFR, ADIFF, BMP, ANEU #### [place] [address] MCHC 33.4 G/dL Normal 32.0-36.0 [facility] Comment on above: Performed By: #### C BC, MG, GFR, ADIFF, BMP, ANEU #### [place] [address] MCV (RBC) [Entitic vol] 88.4 fL Normal 81.0-100.0 [facility] Comment on above: Performed By: #### C BC, MG, GFR, ADIFF, BMP, ANEU #### [place] [address] Platelet 140 10 3/mcL Low 150-450 [facility] Comment on above: Performed By: #### C BC, MG, GFR, ADIFF, BMP, ANEU #### [place] [id number] [place] [address] Platelet mean volume (Bld) [Entitic vol] 8.6 fL Normal 6.4-10.5 [facility] Comment on above: Performed By: #### C BC, MG, GFR, ADIFF, BMP, ANEU #### [place] [id number] [place] [address] RBC 4.82 10 6/mcL Normal 4.50-6.00 [facility] Comment on above: Performed By: #### C BC, MG, GFR, ADIFF, BMP, ANEU #### [place] [id number] [place] [address] WBC 6.5 10 3/mcL Normal 4.5-10.8 [facility] Comment on above: Performed By: #### C BC, MG, GFR, ADIFF, BMP, ANEU #### [place] [address] LABORATORYOrdered By: SYSTEM SYSTEM on 11-26-2024 Basophils [...] above: Interpretive Data: T esting performed on Evgen analyzer using enzymatic creatinine methodology. Electrolyte Balance [...] Routine cultures are held for 5 days. [facility] .Auto Diffon 11-25-2024 Basophil, Absolute 0.0 10 3/mcL Normal 0.0-0.3 [facility] Comment on above: Performed By: #### C BC, MG, GFR, ADIFF, BMP, ANEU #### [address] [address] Basophils/100 WBC (Bld) 0.4 % Normal 0.0-2.5 [facility] Comment on above: Performed By: #### C BC, MG, GFR, ADIFF, BMP, ANEU #### [address] [address] Eosinophil, Absolute 0.1 10 3/mcL Normal 0.0-0.7 [facility] Comment on above: Performed By: #### C BC, MG, GFR, ADIFF, BMP, ANEU #### [address] [address] Eosinophils/100 WBC (Bld) 0.6 % Normal 0.0-6.0 [facility] Comment on above: Performed By: #### C BC, MG, GFR, ADIFF, BMP, ANEU #### [address] [address] Lymphocyte, Absolute 0.8 10 3/mcL Low 0.9-4.3 [facility] Comment on above: Performed By: #### C BC, MG, GFR, ADIFF, BMP, ANEU #### [address] [address] Lymphocytes/100 WBC (Bld) 9.6 % Low 20.0-40.0 [facility] Comment on above: Performed By: #### C BC, MG, GFR, ADIFF, BMP, ANEU #### [address] [address] Monocyte, Absolute 0.8 10 3/mcL Normal 0.1-1.4 [facility] Comment on above: Performed By: #### C BC, MG, GFR, ADIFF, BMP, ANEU #### [address] [address] Monocytes/100 WBC (Bld) 9.3 % Normal 2.0-13.0 [facility] Comment on above: Performed By: #### C BC, MG, GFR, ADIFF, BMP, ANEU #### [address] [address] Neutrophils/100 WBC (Bld) 80.1 % High 50.0-75.0 [facility] Comment on above: Performed By: #### C BC, MG, GFR, ADIFF, BMP, ANEU #### [address] [address] .GFRon 11-25-2024 Estimated Glomerular Filtration Rate 102 ml/min/1.73sqm Normal [facility] Comment on [...] BC, MG, GFR, ADIFF, BMP, ANEU #### [place] [address] .NEUABSon 11-25-2024 Neutrophil, Absolute 7.1 10 3/mcL Normal 2.3-8.1 [facility] Comment on above: Performed By: #### C BC, MG, GFR, ADIFF, BMP, ANEU #### [place] [address] BCIDon 11-25-2024 Acinetobacter carol-baumanii complex Not detected Normal Not Detected [facility] Comment on above: Performed By: #### A DIFF, ANEU, BMP, CBC, GFR #### [place] [address] Bacteroides fragilis Not detected Normal Not Detected [facility] Comment on above: Performed By: #### A DIFF, ANEU, BMP, CBC, GFR #### [place] [address] BCID Comment See Comment Normal [facility] Comment on [...] A DIFF, ANEU, BMP, CBC, GFR #### [place] [address] Moiz albicans Not detected Normal Not Detected [facility] Comment on above: Performed By: #### A DIFF, ANEU, BMP, CBC, GFR #### [place] [address] Moiz auris Not detected Normal Not Detected [facility] Comment on above: Performed By: #### A DIFF, ANEU, BMP, CBC, GFR #### [place] [address] Moiz glabrata Not detected Normal Not Detected [facility] Comment on above: Performed By: #### A DIFF, ANEU, BMP, CBC, GFR #### [place] [address] Moiz krusei Not detected Normal Not Detected [facility] Comment on above: Performed By: #### A DIFF, ANEU, BMP, CBC, GFR #### [place] [address] Moiz parapsilosis Not detected Normal Not Detected [facility] Comment on above: Performed By: #### A DIFF, ANEU, BMP, CBC, GFR #### [place] [address] Moiz tropicalis Not detected Normal Not Detected [facility] Comment on above: Performed By: #### A DIFF, ANEU, BMP, CBC, GFR #### [place] [address] Cryptococcus neoformans-gattii Not detected Normal Not Detected [facility] Comment on above: Performed By: #### A DIFF, ANEU, BMP, CBC, GFR #### [place] [address] CTX-M (ESBL) Not Applicable Normal Not Detected [facility] Comment on above: Performed By: #### A DIFF, ANEU, BMP, CBC, GFR #### [place] [address] E. Coli Not detected Normal Not Detected [facility] Comment on above: Performed By: #### A DIFF, ANEU, BMP, CBC, GFR #### [place] [address] Enterobacter cloacae Complex Not detected Normal Not Detected [facility] Comment on above: Performed By: #### A DIFF, ANEU, BMP, CBC, GFR #### [place] [address] Enterobacterales Not detected Normal Not Detected [facility] Comment on above: Performed By: #### A DIFF, ANEU, BMP, CBC, GFR #### [place] [address] Enterococcus faecalis Not detected Normal Not Detected [facility] Comment on above: Performed By: #### A DIFF, ANEU, BMP, CBC, GFR #### [place] [address] Enterococcus faecium Not detected Normal Not Detected [facility] Comment on above: Performed By: #### A DIFF, ANEU, BMP, CBC, GFR #### [place] [address] Haemophilus influenzae Not detected Normal Not Detected [facility] Comment on above: Performed By: #### A DIFF, ANEU, BMP, CBC, GFR #### [place] [address] IMP (Carbapenemase) Not Applicable Normal Not Detected [facility] Comment on above: Performed By: #### A DIFF, ANEU, BMP, CBC, GFR #### [place] [address] Klebsiella aerogenes Not detected Normal Not Detected [facility] Comment on above: Performed By: #### A DIFF, ANEU, BMP, CBC, GFR #### [place] [address] Klebsiella oxytoca Not detected Normal Not Detected [facility] Comment on above: Performed By: #### A DIFF, ANEU, BMP, CBC, GFR #### [place] [address] Klebsiella pneumoniae group Not detected Normal Not Detected [facility] Comment on above: Performed By: #### A DIFF, ANEU, BMP, CBC, GFR #### [place] [address] KPC (Carbapenemase) Not Applicable Normal Not Detected [facility] Comment on above: Performed By: #### A DIFF, ANEU, BMP, CBC, GFR #### [place] [address] Listeria monocytogenes Not detected Normal Not Detected [facility] Comment on above: Performed By: #### A DIFF, ANEU, BMP, CBC, GFR #### [place] [address] MCR-1 (Colistin Resistance) Not Applicable Normal Not Detected [facility] Comment on above: Performed By: #### A DIFF, ANEU, BMP, CBC, GFR #### [place] [address] Mec A/C Not Applicable Normal Not Detected [facility] Comment on above: Performed By: #### A DIFF, ANEU, BMP, CBC, GFR #### [place] [address] Mec A/C-MREJ (MRSA) Not detected Normal Not Detected [facility] Comment on above: Performed By: #### A DIFF, ANEU, BMP, CBC, GFR #### [place] [address] NDM (Carbapenemase) Not Applicable Normal Not Detected [facility] Comment on above: Performed By: #### A DIFF, ANEU, BMP, CBC, GFR #### [place] [address] Neisseria meningitidis (Encapsalated) Not detected Normal Not Detected [facility] Comment on above: Performed By: #### A DIFF, ANEU, BMP, CBC, GFR #### [place] [address] OXA-48 like (Carbapenemase) Not Applicable Normal Not Detected [facility] Comment on above: Performed By: #### A DIFF, ANEU, BMP, CBC, GFR #### [place] [address] Proteus Not detected Normal Not Detected [facility] Comment on above: Performed By: #### A DIFF, ANEU, BMP, CBC, GFR #### [place] [address] Pseudomonas aeruginosa Not detected Normal Not Detected [facility] Comment on above: Performed By: #### A DIFF, ANEU, BMP, CBC, GFR #### [place] [address] S. agalactiae Org specific cx Ql (Vag fld) Not detected Normal Not Detected [facility] Comment on above: Performed By: #### A DIFF, ANEU, BMP, CBC, GFR #### [place] [address] Salmonella species Not detected Normal Not Detected [facility] Comment on above: Performed By: #### A DIFF, ANEU, BMP, CBC, GFR #### [place] [address] Serratia marcescens Not detected Normal Not Detected [facility] Comment on above: Performed By: #### A DIFF, ANEU, BMP, CBC, GFR #### [place] [address] Staphylococcus Detected Abnormal Not Detected [facility] Comment on above: Performed By: #### A DIFF, ANEU, BMP, CBC, GFR #### [place] [address] Staphylococcus aureus Detected Abnormal Not Detected [facility] Comment on above: Result Comment: If S taphylococcus aureus is "Detected", an Infectious Disease physician consult is required on identification. Performed By: #### A DIFF, ANEU, BMP, CBC, GFR #### [place] [address] Staphylococcus epidermidis Not detected Normal Not Detected [facility] Comment on above: Performed By: #### A DIFF, ANEU, BMP, CBC, GFR #### [place] [address] Staphylococcus lugdunensis Not detected Normal Not Detected [facility] Comment on above: Performed By: #### A DIFF, ANEU, BMP, CBC, GFR #### [place] [address] Stenotrophomonas maltophilia Not detected Normal Not Detected [facility] Comment on above: Performed By: #### A DIFF, ANEU, BMP, CBC, GFR #### [place] [address] Streptococcus Not detected Normal Not Detected [facility] Comment on above: Performed By: #### A DIFF, ANEU, BMP, CBC, GFR #### [place] [address] Streptococcus pneumoniae Not detected Normal Not Detected [facility] Comment on above: Performed By: #### A DIFF, ANEU, BMP, CBC, GFR #### [place] [address] Streptococcus pyogenes Not detected Normal Not Detected [facility] Comment on above: Performed By: #### A DIFF, ANEU, BMP, CBC, GFR #### [place] [address] Van A/B Not Applicable Normal Not Detected [facility] Comment on above: Performed By: #### A DIFF, ANEU, BMP, CBC, GFR #### [place] [address] VIM (Carbapenemase) Not Applicable Normal Not Detected [facility] Comment on above: Performed By: #### A DIFF, ANEU, BMP, CBC, GFR #### [address] 11[address]24 BUN/Creatinine Ratio 15.7 ratio Normal 10.0-22.0 [facility] Comment on above: Performed By: #### C BC, MG, GFR, ADIFF, BMP, ANEU #### [place] [address] Calcium [Mass/Vol] 9.1 mg/dL Normal 8.7-10.4 [facility] Comment on above: Performed By: #### C BC, MG, GFR, ADIFF, BMP, ANEU #### [place] [address] Chloride [Moles/Vol] 100 mmol/L Normal 98-110 [facility] Comment on above: Performed By: #### C BC, MG, GFR, ADIFF, BMP, ANEU #### [address] [address] CO2 [Moles/Vol] 24 mmol/L Normal 22-32 [facility] Comment on above: Performed By: #### C BC, MG, GFR, ADIFF, BMP, ANEU #### [address] [address] Creatinine [Mass/Vol] 0.89 mg/dL Normal 0.60-1.40 [facility] Comment on above: Result Comment: Test ing performed on Evgen analyzer using enzymatic creatinine methodology. Performed By: #### C BC, MG, GFR, ADIFF, BMP, ANEU #### [address] [address] Electrolyte Balance 12.0 mEq/L Normal 4.0-15.0 [facility] Comment on above: Performed By: #### C BC, MG, GFR, ADIFF, BMP, ANEU #### [address] [address] Glucose [Mass/Vol] 108 mg/dL Normal 70-110 [facility] Comment on above: Performed By: #### C BC, MG, GFR, ADIFF, BMP, ANEU #### [address] [address] Potassium [Moles/Vol] 3.8 mmol/L Normal 3.5-5.0 [facility] Comment on above: Performed By: #### C BC, MG, GFR, ADIFF, BMP, ANEU #### [address] [address] Sodium [Moles/Vol] 136 mmol/L Normal 136-145 [facility] Comment on above: Performed By: #### C BC, MG, GFR, ADIFF, BMP, ANEU #### [address] [address] Urea nitrogen [Mass/Vol] 14.0 mg/dL Normal 8.0-22.0 [facility] Comment on above: Performed By: #### C BC, MG, GFR, ADIFF, BMP, ANEU #### [place] [address] CBCon 11-25-2024 Erythrocyte distribution width (RBC) [Ratio] 15.3 % Normal 11.5-15.5 [facility] Comment on above: Order Comment: QNS Performed By: #### C BC, MG, GFR, ADIFF, BMP, ANEU #### [place] [address] Hematocrit (Bld) [Volume fraction] 44.6 % Normal 40.0-52.0 [facility] Comment on above: Order Comment: QNS Performed By: #### C BC, MG, GFR, ADIFF, BMP, ANEU #### [place] [address] Hgb 14.9 G/dL Normal 13.0-17.5 [facility] Comment on above: Order Comment: QNS Performed By: #### C BC, MG, GFR, ADIFF, BMP, ANEU #### [place] [address] MCH (RBC) [Entitic mass] 29.2 pg Normal 27.0-33.0 [facility] Comment on above: Order Comment: QNS Performed By: #### C BC, MG, GFR, ADIFF, BMP, ANEU #### [place] [address] MCHC 33.4 G/dL Normal 32.0-36.0 [facility] Comment on above: Order Comment: QNS Performed By: #### C BC, MG, GFR, ADIFF, BMP, ANEU #### [place] [address] MCV (RBC) [Entitic vol] 87.6 fL Normal 81.0-100.0 [facility] Comment on above: Order Comment: QNS Performed By: #### C BC, MG, GFR, ADIFF, BMP, ANEU #### [place] [address] Platelet 183 10 3/mcL Normal 150-450 [facility] Comment on above: Order Comment: QNS Performed By: #### C BC, MG, GFR, ADIFF, BMP, ANEU #### [place] [id number] [place] [address] Platelet mean volume (Bld) [Entitic vol] 8.3 fL Normal 6.4-10.5 [facility] Comment on above: Order Comment: QNS Performed By: #### C BC, MG, GFR, ADIFF, BMP, ANEU #### [place] [address] RBC 5.08 10 6/mcL Normal 4.50-6.00 [facility] MAIN Comment on above: Order Comment: QNS Performed By: #### C BC, MG, GFR, ADIFF, BMP, ANEU #### [place] [address] WBC 8.9 10 3/mcL Normal 4.5-10.8 [facility] MAIN Comment on above: Order Comment: QNS Performed By: #### C BC, MG, GFR, ADIFF, BMP, ANEU #### [place] [address] LABORATORYOrdered By: SYSTEM SYSTEM on 11-25-2024 Basophils [...] 29.2 pg Normal 27.0 - 33.0 pg Workflow [...] 7.1 103/mcL Normal 2.3 - 8.1 10^3/mcL Workflow SS Neutrophils/100 WBC (Bld) 80.1 % High 50.0 - 75.0 % Workflow SS Platelet mean volume (Bld) [Entitic vol] 8.3 fL Normal 6.4 - 10.5 fL Workflow SS Platelets (Bld) [#/Vol] 183 103/mcL [...] above: Interpretive Data: T esting performed on Evgen analyzer using enzymatic creatinine methodology. Electrolyte Balance [...] 11-25-2024 Magnesium [Mass/Vol] 2.1 mg/dL Normal 1.6-2.4 [facility] MAIN Comment on above: Performed By: #### C BC, MG, GFR, ADIFF, BMP, ANEU #### [place] [address] No Panel Informationon 11-25 GSAER Gram Positive Cocci in clusters [facility] Microscopic examination of blood, culture Culture has been received in lab and is no growth to date. Routine cultures are held for 5 days. [facility] Microscopic examination of blood, culture Staphylococcus coagulase negative Staphylococcus coagulase negative #2 Staphylococcus coagulase negative #3 Isolated from aerobe bottle only. 1 out of 2 sets positive Organism is a potential contaminant. Clinical Significance undetermined. Please contact Microbiology if further work-up is required. [facility] XR ANKLE MINIMUM 3 VIEWS LEF [...] 11/25/2024 7:46:46 PM Ordering Provider: SUZE MISHRA [facility] XR ANKLE MINIMUM 3 VIEWS [facility] 11-25-2024 XR ANKLE MINIMUM 3 VIEWS RIGHT [...] 11/25/2024 7:39:01 PM Ordering Provider: SUZE MISHRA [facility] MAIN XR TIBIA/FIBULA 2 VIEWS WERO Ramirez 11-25-2024 XR TIBIA/FIBULA 2 VIEWS RIGHT ORIGINAL [...] 11/25/2024 7:42:39 PM Ordering Provider: ORI TOMLIN [facility] MAIN .Auto Diffon 11-24-2024 Basophil, Absolute 0.0 10 3/mcL Normal 0.0-0.3 [facility] MAIN Comment on above: Performed By: #### C BC, MG, GFR, ADIFF, BMP, ANEU #### [address] [address] Basophils/100 WBC (Bld) 0.2 % Normal 0.0-2.5 [facility] MAIN Comment on above: Performed By: #### C BC, MG, GFR, ADIFF, BMP, ANEU #### [address] [address] Eosinophil, Absolute 0.0 10 3/mcL Normal 0.0-0.7 [facility] MAIN Comment on above: Performed By: #### C BC, MG, GFR, ADIFF, BMP, ANEU #### [address] [address] Eosinophils/100 WBC (Bld) 0.2 % Normal 0.0-6.0 [facility] MAIN Comment on above: Performed By: #### C BC, MG, GFR, ADIFF, BMP, ANEU #### [address] [address] Lymphocyte, Absolute 1.2 10 3/mcL Normal 0.9-4.3 [facility] MAIN Comment on above: Performed By: #### C BC, MG, GFR, ADIFF, BMP, ANEU #### [address] [address] Lymphocytes/100 WBC (Bld) 9.9 % Low 20.0-40.0 [facility] MAIN Comment on above: Performed By: #### C BC, MG, GFR, ADIFF, BMP, ANEU #### [address] [address] Monocyte, Absolute 1.6 10 3/mcL High 0.1-1.4 [facility] MAIN Comment on above: Performed By: #### C BC, MG, GFR, ADIFF, BMP, ANEU #### [address] [address] Monocytes/100 WBC (Bld) 12.6 % Normal 2.0-13.0 [facility] MAIN Comment on above: Performed By: #### C BC, MG, GFR, ADIFF, BMP, ANEU #### [address] [address] Neutrophils/100 WBC (Bld) 77.1 % High 50.0-75.0 [facility] MAIN Comment on above: Performed By: #### C BC, MG, GFR, ADIFF, BMP, ANEU #### [address] [address] Basophil, Absolute 0.1 10 3/mcL Normal 0.0-0.3 [facility] Comment on above: Performed By: #### A ELY REYES, BMP, MG, GFR, ADIFF, DIMER, CBC, PBNP, TROPHS #### [address] [address] Basophils/100 WBC (Bld) 0.4 % Normal 0.0-2.5 [facility] Comment on above: Performed By: #### A ELY REYES, BMP, MG, GFR, ADIFF, DIMER, CBC, PBNP, TROPHS #### [address] [address] Eosinophil, Absolute 0.0 10 3/mcL Normal 0.0-0.7 [facility] Comment on above: Performed By: #### A ELY REYES, BMP, MG, GFR, ADIFF, DIMER, CBC, PBNP, TROPHS #### [address] [address] Eosinophils/100 WBC (Bld) 0.1 % Normal 0.0-6.0 [facility] Comment on above: Performed By: #### A ELY REYES, BMP, MG, GFR, ADIFF, DIMER, CBC, PBNP, TROPHS #### [address] [address] Lymphocyte, Absolute 1.0 10 3/mcL Normal 0.9-4.3 [facility] Comment on above: Performed By: #### A ELY REYES, BMP, MG, GFR, ADIFF, DIMER, CBC, PBNP, TROPHS #### [address] [address] Lymphocytes/100 WBC (Bld) 5.8 % Low 20.0-40.0 [facility] Comment on above: Performed By: #### A ELY REYES, BMP, MG, GFR, ADIFF, DIMER, CBC, PBNP, TROPHS #### [address] [address] Monocyte, Absolute 1.9 10 3/mcL High 0.1-1.4 [facility] Comment on above: Performed By: #### A ELY REYES, BMP, MG, GFR, ADIFF, DIMER, CBC, PBNP, TROPHS #### [address] [address] Monocytes/100 WBC (Bld) 11.5 % Normal 2.0-13.0 [facility] Comment on above: Performed By: #### A ELY REYES, BMP, MG, GFR, ADIFF, DIMER, CBC, PBNP, TROPHS #### [address] [address] Neutrophils/100 WBC (Bld) 82.2 % High 50.0-75.0 [facility] Comment on above: Performed By: #### A ELY REYES, BMP, MG, GFR, ADIFF, DIMER, CBC, PBNP, TROPHS #### [address] [address] .GFRon 11-24-2024 Estimated Glomerular Filtration Rate 102 ml/min/1.73sqm [facility] MAIN Comment on above: Result Comment: [...] BC, MG, GFR, ADIFF, BMP, ANEU #### [facility] [address] [place] [address] Estimated Glomerular Filtration Rate 93 ml/min/1.73sqm Normal [...] ADIFF, DIMER, CBC, PBNP, TROPHS #### [address] [address] .MDWon 11-24-2024 Monocyte Distribution Width 19.29 Normal 0.00-20.00 [facility] Comment on above: Result Comment: For ED adult patients suspected of sepsis, MDW<=20.0 does not rule out sepsis or risk of sepsis Performed By: #### A ERIC, MDW, BMP, MG, GFR, ADIFF, DIMER, CBC, PBNP, TROPHS #### [address] [address] .NEUABSon 11-24-2024 Neutrophil, Absolute 9.7 10 3/mcL High 2.3-8.1 [facility] Comment on above: Performed By: #### C BC, MG, GFR, ADIFF, BMP, ANEU #### [address] [address] Neutrophil, Absolute 13.6 10 3/mcL High 2.3-8.1 [facility] Comment on above: Performed By: #### A ERIC, MDW, BMP, MG, GFR, ADIFF, DIMER, CBC, PBNP, TROPHS #### [address] [address] [facility] BUN/Creatinine Ratio 10.0 ratio Normal 10.0-22.0 [facility] Comment on above: Performed By: #### C BC, MG, GFR, ADIFF, BMP, ANEU #### [address] [address] Calcium [Mass/Vol] 9.2 mg/dL Normal 8.7-10.4 [facility] MAIN Comment on above: Performed By: #### C BC, MG, GFR, ADIFF, BMP, ANEU #### [address] [address] Chloride [Moles/Vol] 99 mmol/L Normal 98-110 [facility] MAIN Comment on above: Performed By: #### C BC, MG, GFR, ADIFF, BMP, ANEU #### [address] [address] CO2 [Moles/Vol] 23 mmol/L Normal 22-32 [facility] MAIN Comment on above: Performed By: #### C BC, MG, GFR, ADIFF, BMP, ANEU #### [address] [address] Creatinine [Mass/Vol] 0.90 mg/dL Normal 0.60-1.40 [facility] MAIN Comment on above: Result Comment: Test ing performed on Evgen analyzer using enzymatic creatinine methodology. Performed By: #### C BC, MG, GFR, ADIFF, BMP, ANEU #### [address] [address] Electrolyte Balance 12.0 mEq/L Normal 4.0-15.0 [facility] MAIN Comment on above: Performed By: #### C BC, MG, GFR, ADIFF, BMP, ANEU #### [address] [address] Glucose [Mass/Vol] 109 mg/dL Normal 70-110 [facility] MAIN Comment on above: Performed By: #### C BC, MG, GFR, ADIFF, BMP, ANEU #### [address] [address] Potassium [Moles/Vol] 4.1 mmol/L Normal 3.5-5.0 [facility] MAIN Comment on above: Performed By: #### C BC, MG, GFR, ADIFF, BMP, ANEU #### [address] [address] Sodium [Moles/Vol] 134 mmol/L Low 136-145 [facility] MAIN Comment on above: Performed By: #### C BC, MG, GFR, ADIFF, BMP, ANEU #### [address] [address] Urea nitrogen [Mass/Vol] 9.0 mg/dL Normal 8.0-22.[address] [facility] Comment on above: Performed By: #### C BC, MG, GFR, ADIFF, BMP, ANEU #### [address] [address] BUN/Creatinine Ratio 11 ratio Normal 7-27 [facility] Comment on above: Performed By: #### A ELY REYES, BMP, MG, GFR, ADIFF, DIMER, CBC, PBNP, TROPHS #### [address] [address] Calcium [Mass/Vol] 8.7 mg/dL Normal 8.4-10.2 [facility] Comment on above: Performed By: #### A ELY REYES, BMP, MG, GFR, ADIFF, DIMER, CBC, PBNP, TROPHS #### [address] [address] Chloride [Moles/Vol] 99 mmol/L Normal 98-107 [facility] Comment on above: Performed By: #### A ELY REYES, BMP, MG, GFR, ADIFF, DIMER, CBC, PBNP, TROPHS #### [address] [address] CO2 [Moles/Vol] 28 mmol/L Normal 22-29 [facility] Comment on above: Performed By: #### A ELY REYES, BMP, MG, GFR, ADIFF, DIMER, CBC, PBNP, TROPHS #### [address] [address] Creatinine [Mass/Vol] 0.97 mg/dL Normal 0.67-1.17 [facility] Comment on above: Performed By: #### A ELY REYES, BMP, MG, GFR, ADIFF, DIMER, CBC, PBNP, TROPHS #### [address] [address] Electrolyte Balance 6.0 mEq/L Normal 4.0-15.0 [facility] Comment on above: Performed By: #### A ELY REYES, BMP, MG, GFR, ADIFF, DIMER, CBC, PBNP, TROPHS #### [address] [address] Glucose [Mass/Vol] 130 mg/dL High 70-105 [facility] Comment on above: Performed By: #### A ELY REYES, BMP, MG, GFR, ADIFF, DIMER, CBC, PBNP, TROPHS #### [address] [address] Potassium [Moles/Vol] 4.9 mmol/L Normal 3.5-5.1 [facility] Comment on above: Performed By: #### A ELY REYES, BMP, MG, GFR, ADIFF, DIMER, CBC, PBNP, TROPHS #### [address] [address] Sodium [Moles/Vol] 133 mmol/L Low 136-145 [facility] Comment on above: Performed By: #### A ELY REYES, BMP, MG, GFR, ADIFF, DIMER, CBC, PBNP, TROPHS #### [address] [address] Urea nitrogen [Mass/Vol] 11 mg/dL Normal 7-18 [facility] Comment on above: Performed By: #### A ELY REYES, BMP, MG, GFR, ADIFF, DIMER, CBC, PBNP, TROPHS #### [address] [address] CBCon 11-24-2024 Erythrocyte distribution width (RBC) [Ratio] 15.1 % Normal 11.5-15.[address] [facility] Comment on above: Performed By: #### C BC, MG, GFR, ADIFF, BMP, ANEU #### [facility] [address] [place] [address] Hematocrit (Bld) [Volume fraction] 48.7 % Normal 40.0-52.0 [facility] MAIN Comment on above: Performed By: #### C BC, MG, GFR, ADIFF, BMP, ANEU #### [place] [address] Hgb 15.7 G/dL Normal 13.0-17.5 [facility] MAIN Comment on above: Performed By: #### C BC, MG, GFR, ADIFF, BMP, ANEU #### [place] [address] MCH (RBC) [Entitic mass] 28.3 pg Normal 27.0-33.0 [facility] MAIN Comment on above: Performed By: #### C BC, MG, GFR, ADIFF, BMP, ANEU #### [place] [address] MCHC 32.3 G/dL Normal 32.0-36.0 [facility] MAIN Comment on above: Performed By: #### C BC, MG, GFR, ADIFF, BMP, ANEU #### [place] [address] MCV (RBC) [Entitic vol] 87.7 fL Normal 81.0-100.0 [facility] MAIN Comment on above: Performed By: #### C BC, MG, GFR, ADIFF, BMP, ANEU #### [place] [address] Platelet 190 10 3/mcL Normal 150-450 [facility] MAIN Comment on above: Performed By: #### C BC, MG, GFR, ADIFF, BMP, ANEU #### [place] [address] Platelet mean volume (Bld) [Entitic vol] 8.0 fL Normal 6.4-10.5 [facility] MAIN Comment on above: Performed By: #### C BC, MG, GFR, ADIFF, BMP, ANEU #### [place] [address] RBC 5.56 10 6/mcL Normal 4.50-6.00 [facility] MAIN Comment on above: Performed By: #### C BC, MG, GFR, ADIFF, BMP, ANEU #### [place] [address] WBC 12.6 10 3/mcL High 4.5-10.[address] [facility] Comment on above: Performed By: #### C BC, MG, GFR, ADIFF, BMP, ANEU #### [facility] [address] [place] [address] Erythrocyte distribution width (RBC) [Ratio] 15.5 % Normal 11.5-15.5 [facility] Comment on above: Performed By: #### A ELY REYES, JULIÁN, MG, GFR, ADIFF, DIMER, CBC, PBNP, TROPHS #### [address] [address] Hematocrit (Bld) [Volume fraction] 46.6 % Normal 40.0-52.0 [facility] Comment on above: Performed By: #### A ELY REYES, JULIÁN, MG, GFR, ADIFF, DIMER, CBC, PBNP, TROPHS #### [address] [address] Hgb 15.4 G/dL Normal 13.0-17.5 [facility] Comment on above: Performed By: #### A ELY REYES, JULIÁN, MG, GFR, ADIFF, DIMER, CBC, PBNP, TROPHS #### [address] [address] MCH (RBC) [Entitic mass] 28.8 pg Normal 27.0-33.0 [facility] Comment on above: Performed By: #### A ELY REYES, JULIÁN, MG, GFR, ADIFF, DIMER, CBC, PBNP, TROPHS #### [address] [address] MCHC 33.0 G/dL Normal 32.0-36.0 [facility] Comment on above: Performed By: #### A ELY REYES, JULIÁN, MG, GFR, ADIFF, DIMER, CBC, PBNP, TROPHS #### [address] [address] MCV (RBC) [Entitic vol] 87.4 fL Normal 81.0-100.0 [facility] Comment on above: Performed By: #### A ELY REYES, BMP, MG, GFR, ADIFF, DIMER, CBC, PBNP, TROPHS #### [address] [address] Platelet 240 10 3/mcL Normal 150-450 [facility] Comment on above: Performed By: #### A ELY REYES, BMP, MG, GFR, ADIFF, DIMER, CBC, PBNP, TROPHS #### [address] [address] Platelet mean volume (Bld) [Entitic vol] 7.8 fL Normal 6.4-10.5 [facility] Comment on above: Performed By: #### A ELY REYES, BMP, MG, GFR, ADIFF, DIMER, CBC, PBNP, TROPHS #### [address] [address] RBC 5.34 10 6/mcL Normal 4.50-6.00 [facility] Comment on above: Performed By: #### A ELY REYES, BMP, MG, GFR, ADIFF, DIMER, CBC, PBNP, TROPHS #### [address] [address] WBC 16.6 10 3/mcL High 4.5-10.8 [facility] Comment on above: Performed By: #### A ELY REYES, BMP, MG, GFR, ADIFF, DIMER, CBC, PBNP, TROPHS #### [address] [address] [address] ANGIOGRAPHY CHEST W/CONTR [place] 11-24-2024 CT [...] 11/24/2024 6:01:11 AM Ordering Provider: CIRILO PATEL [facility] CT HEAD OR BRAIN W/O CONTRAS [...] ADIFF, DIMER, CBC, PBNP, TROPHS #### [place] [address] [address] LABORATORYOrdered By: SYSTEM SYSTEM on 11-24-2024 Lactate [...] ng/L Male: 0-54 ng/L Testing performed on Pose.[employer] analyzer using direct chemiluminescent technology. TSH Qn [...] ng/L Male: 0-76 ng/L Testing performed on elastic.io using a homogeneous sandwich chemiluminescent immunoassay based on Webcrunch technology. Urea nitrogen [Mass/Vol] 11 mg/dL Normal [...] Lactic Acid Lvl 1.0 mmol/L Normal 0.5-2.2 [facility] MAIN Comment on above: Performed By: #### C BC, MG, GFR, ADIFF, BMP, ANEU #### [address] [address] Lactic Acid Lvl 0.4 mmol/L Normal 0.4-2.0 [facility] Comment on above: Order Comment: order ed secondary to Sepsis Alert Performed By: #### A ELY REYES, BMP, MG, GFR, ADIFF, DIMER, CBC, PBNP, TROPHS #### [place] [address] [place], [place] [address] MGon 11-24-2024 Magnesium [Mass/Vol] 2.3 mg/dL Normal 1.6-2.4 [facility] MAIN Comment on above: Performed By: #### C BC, MG, GFR, ADIFF, BMP, ANEU #### [address] [address] Magnesium [Mass/Vol] 1.6 mg/dL Low 1.8-2.4 [facility] Comment on above: Performed By: #### A ELY REYES, BMP, MG, GFR, ADIFF, DIMER, CBC, PBNP, TROPHS #### [address] [address] No Panel Informationon 11-24 Microscopic examination of blood, culture Culture has been received in lab and is no growth to date. Routine cultures are held for 5 days. [facility] PBNPon 11-24-2024 Natriuretic peptide B (Bld) [Mass/Vol] 4325 pg/mL High 0-900 [facility] MAIN Comment on above: Performed By: #### C BC, MG, GFR, ADIFF, BMP, ANEU #### [address] [address] Natriuretic peptide B (Bld) [Mass/Vol] 5358 pg/mL High 0-125 [facility] Comment on above: Result Comment: NT-p roBNP results of less than 300 pg/mL effectively rules out acute congestive heart failure with 99% negative predictive value. Performed By: #### A ELY REYES, BMP, MG, GFR, ADIFF, DIMER, CBC, PBNP, TROPHS #### [address] [address] TROPHSon 11-24-2024 High Sensitivity Troponin I 8 ng/L Normal 0-54 [facility] MAIN Comment on above: Result Comment: High Sensitive Troponin I Reference Ranges: Female: 0-34 ng/L Male: 0-54 ng/L Testing performed on InEdge IM analyzer using direct chemiluminescent technology. Performed By: #### C BC, MG, GFR, ADIFF, BMP, ANEU #### [place] [id number] High Sensitivity Troponin I 19 ng/L Normal 0-76 [facility] Comment on above: Result Comment: High Sensitive Troponin I Reference Ranges: Female: 0-51 ng/L Male: 0-76 ng/L Testing performed on [employer] using a homogeneous sandwich chemiluminescent immunoassay based on Webcrunch technology. Performed By: #### A ELY REYES, BMP, MG, GFR, ADIFF, DIMER, CBC, PBNP, TROPHS #### [address] [address] TSHon 11-24-2024 TSH 0.855 mIU/mL Normal 0.550-4.780 [facility] MAIN Comment on above: Performed By: #### C BC, MG, GFR, ADIFF, BMP, ANEU #### [place] [id number] XR CHEST 1 VIEWon 11-24-2024 XR CHEST [...] 11/24/2024 2:03:25 PM Ordering Provider: KARLENE BARCENAS [facility] MAIN Anion gap in Serum or Plasma Ordered By: Dolly Marino on 11-06-2024 Anion gap [Moles/Vol] 9 mmol/L 10-10 [facility] [place] BUN/creatinine ratioOrdered By: Dolly Marino on 11-06-2024 Urea nitrogen/Creatinine [Mass ratio] 14.9 mg/mg 03-17 [facility] Basic Metabolic Profile (BMP )on 11-06-2024 BUN/CRE 14.9 RATIO Normal 03-17 [facility] Comment on above: Order Comment: 210 Performed By: #### L 500.2500 ####[facility] [address] [place], [address] Calcium [Mass/Vol] 9.2 mg/dL Normal 7.6-11.0 [facility] Comment on above: Order Comment: 210 Performed By: #### L 500.2500 ####[facility] [address] [place], [address] Chloride [Moles/Vol] 100 mmol/L Normal 98-108 [facility] Comment on above: Order Comment: 210 Performed By: #### L 500.2500 ####[facility] [address] [place], [address] CO2 [Moles/Vol] 27.9 mmol/L Normal 21.0-32.0 [facility] Comment on above: Order Comment: 210 Performed By: #### L 500.2500 ####[facility] [address] [place], [address] Creatinine [Mass/Vol] 0.87 mg/dL Normal 0.70-1.20 [facility] [place] Comment on above: Order Comment: 210 Performed By: #### L 500.2500 ####[facility] [address], [address] GAP 9 Normal 5-15 [facility] Comment on above: Order Comment: 210 Performed By: #### L 500.2500 ####[facility] [address] [place], [address] GFR/1.73 sq M.predicted among non-blacks MDRD (S/P/Bld) [Vol rate/Area] 103 mL/min/{1.73_m2} Normal >60 [facility] Comment on above: Order Comment: 210 Result Comment: mL/m in/1.73m2 CKD-EPI Creatinine Equation (2020) Performed By: #### L 500.2500 ####[facility] [address] [place], [address] Glucose [Mass/Vol] 104 mg/dL High 70-99 [facility] Comment on above: Order Comment: 210 Performed By: #### L 500.2500 ####[facility] [address] [place], [address] Potassium [Moles/Vol] 4.4 mmol/L Normal 3.3-5.1 [facility] [place] Comment on above: Order Comment: 210 Performed By: #### L 500.2500 ####[facility] [address] [place], [address] Sodium [Moles/Vol] 136 mmol/L Normal 133-145 [facility] Comment on above: Order Comment: 210 Performed By: #### L 500.2500 ####[facility] [address] [place], [address] Urea nitrogen [Mass/Vol] 13 mg/dL Normal 4-19 [facility] Comment on above: Order Comment: 210 Performed By: #### L 500.2500 ####[facility] [address] [place], [address] Carbon dioxide, total [Moles /volume] in Central venous bloodOrdered By: Dolly Marino on 11-06-2024 CO2 [Moles/Vol] 27.9 mmol/L 21.0-32.0 [facility] Chloride assayOrdered By: Darrin Marino on 11-06-2024 Chloride [Moles/Vol] 100 mmol/L 98-108 [facility] Glomerular filtration rate ( GFR) estimation/1.73 sq m using serum, plasma, or whole bOrdered By: Dolly Marino on 11-06-2024 GFR/1.73 sq M.predicted among non-blacks MDRD (S/P/Bld) [Vol rate/Area] 103 mL/min/{1.73_m2} >60 [facility] Comment on above: mL/min/1.73m2 CKD-EP I Creatinine Equation (2020) Potassium measurement (mass/ volume)Ordered By: Dolly Marino on 11-06-2024 Potassium (Unsp spec) [Mass/Vol] 4.4 mmol/L 3.3-5.1 [facility] Serum creatinine measurement (mass/volume)Ordered By: Dolly Marino on 11-06-2024 Creatinine [Mass/Vol] 0.87 mg/dL 0.70-1.20 [facility] [place] Serum glucose measurement (m ass/volume)Ordered By: Dolly Marino on 11-06-2024 Glucose [Mass/Vol] 104 mg/dL High 70-99 [facility] Serum or plasma calcium scott urement (mass/volume)Ordered By: Dolly Marino on 11-06-2024 Calcium [Mass/Vol] 9.2 mg/dL 7.6-11.0 [facility] Serum or plasma urea nitroge n measurement (mass/volume)Ordered By: Dolly Marino on 11-06-2024 Urea nitrogen [Mass/Vol] 13 mg/dL 4-19 [facility] Sodium levelOrdered By: Missael Marino on 11-06-2024 Sodium [Moles/Vol] 136 mmol/L 133-145 [facility] Absolute lymphocyte countOrd ered By: Dolly Marino on 11-04-2024 Lymphocytes Auto (Unsp spec) [#/Vol] 1.05 10*3/uL 0.83-4.51 [facility] Absolute neutrophil countOrd ered By: Dolly Marino on 11-04-2024 Neutrophils (Bld) [#/Vol] 2.8 10*3/uL 2.0-7.7 [facility] Anion gap in Serum or Plasma Ordered By: Dolly Marino on 11-04-2024 Anion gap [Moles/Vol] 10 mmol/L - [facility] [place] Automated lymphocyte count a s percentage of total leukocytesOrdered By: Dolly Marino on 11-04-2024 Lymphocytes/100 WBC Auto (Unsp spec) 23.5 % [facility] BUN/creatinine ratioOrdered By: Dolly Marino on 11-04-2024 Urea nitrogen/Creatinine [Mass ratio] 12.7 mg/mg - [facility] Basic Metabolic Profile (BMP )on 11-04-2024 BUN/CRE 12.7 RATIO Normal - [facility] Comment on above: Order Comment: 210.1 Performed By: #### L 500.2500, L100.0100, L501.5200 ####[facility] [address] [place], [address] Calcium [Mass/Vol] 9.0 mg/dL Normal 7.6-11.0 [facility] Comment on above: Order Comment: 210.1 Performed By: #### L 500.2500, L100.0100, L501.5200 ####[facility] [address] [place], [address] Chloride [Moles/Vol] 101 mmol/L Normal 98-108 [facility] Comment on above: Order Comment: 210.1 Performed By: #### L 500.2500, L100.0100, L501.5200 ####[facility] [address] [place] [place], [address] CO2 [Moles/Vol] 28.1 mmol/L Normal 21.0-32.0 [facility] Comment on above: Order Comment: 210. Performed By: #### L 500.2500, L100.0100, L501.5200 ####[facility] [address] [place], [address] Creatinine [Mass/Vol] 0.80 mg/dL Normal 0.70-1.20 [facility] Comment on above: Order Comment: 210. Performed By: #### L 500.2500, L100.0100, L501.5200 ####[facility] [address] [place], [address] GAP 10 Normal 5-15 [facility] Comment on above: Order Comment: . Performed By: #### L 500.2500, L100.0100, L501.5200 ####[facility] [address] [place], [address] GFR/1.73 sq M.predicted among non-blacks MDRD (S/P/Bld) [Vol rate/Area] 106 mL/min/{1.73_m2} Normal >60 [facility] Comment on above: Order Comment: . Result Comment: mL/m in/1.73m2 CKD-EPI Creatinine Equation (2020) Performed By: #### L 500.2500, L100.0100, L501.5200 ####[facility] [address] [place], [address] Glucose [Mass/Vol] 96 mg/dL Normal 70-99 [facility] Comment on above: Order Comment: 210. Performed By: #### L 500.2500, L100.0100, L501.5200 ####[facility] [address] [place], [address] Potassium [Moles/Vol] 4.2 mmol/L Normal 3.3-5.1 [facility] [place] Comment on above: Order Comment: 210.1 Result Comment: Hemo lysis present, Results??could be affected.?? Performed By: #### L 500.2500, L100.0100, L501.5200 ####[facility] [address] [place], [address] Sodium [Moles/Vol] 139 mmol/L Normal 133-145 [facility] Comment on above: Order Comment: 210.1 Performed By: #### L 500.2500, L100.0100, L501.5200 ####[facility] [address] [place], [address] Urea nitrogen [Mass/Vol] 10 mg/dL Normal 4-19 [facility] Comment on above: Order Comment: 210.1 Performed By: #### L 500.2500, L100.0100, L501.5200 ####[facility] [address] [place], [address] Basophil percentageOrdered B y: Dolly Marino on 11-04-2024 Basophils/100 WBC (Bld) 0.9 % 0-1 [facility] CBC W/Diff, Automatedon Absolute Lymph 1.05 X10 3/uL Normal 0.83-4.51 [facility] Comment on above: Order Comment: 210.1 Performed By: #### L 500.2500, L100.0100, L501.5200 ####[facility] [address] [place], [address] Absolute Neut 2.8 X10 3/uL Normal 2.0-7.7 [facility] Comment on above: Order Comment: 210.1 Performed By: #### L 500.2500, L100.0100, L501.5200 ####[facility] [address] [place], [address] Basophils/100 WBC (Bld) 0.9 % Normal 0-1 [facility] Comment on above: Order Comment: 210.1 Performed By: #### L 500.2500, L100.0100, L501.5200 ####[facility] [address] [place], [address] Eosinophils/100 WBC (Bld) 1.6 % Normal 0-5 [facility] Comment on above: Order Comment: 210.1 Performed By: #### L 500.2500, L100.0100, L501.5200 ####[facility] [address] [place], [address] Erythrocyte distribution width (RBC) [Ratio] 15.8 % High 11.6-14.6 [facility] Comment on above: Order Comment: 210.1 Performed By: #### L 500.2500, L100.0100, L501.5200 ####[facility] [address] [place], [address] Hematocrit (Bld) [Volume fraction] 41.8 % Normal 40-54 [facility] Comment on above: Order Comment: 210.1 Performed By: #### L 500.2500, L100.0100, L501.5200 ####[facility] [address] [place], [address] Hemoglobin (Bld) [Mass/Vol] 13.1 g/dL Normal 13.0-16.5 [facility] Comment on above: Order Comment: 210.1 Performed By: #### L 500.2500, L100.0100, L501.5200 ####[facility] [address] [place], [address] IG% 0.400 Normal 0.0-0.9 [facility] Comment on above: Order Comment: 210.1 Result Comment: IG% - Immature Granulocytes (promyelocytes, myelocytes andmetamyelocytes) > 1% indicates that a LEFT SHIFT is Present. Performed By: #### L 500.2500, L100.0100, L501.5200 ####[facility] [address] [place], [address] Lymphocytes/100 WBC (Bld) 23.5 % Normal 19-41 [facility] Comment on above: Order Comment: 210.1 Performed By: #### L 500.2500, L100.0100, L501.5200 ####[facility] [address] [place], [address] MCH (RBC) [Entitic mass] 28.6 pg Normal 27.0-32.0 [facility] Comment on above: Order Comment: 210.1 Performed By: #### L 500.2500, L100.0100, L501.5200 ####[facility] [address] [place], [address] MCHC (RBC) [Mass/Vol] 31.3 g/dL Low 32-36 [facility] [place] Comment on above: Order Comment: 210.1 Performed By: #### L 500.2500, L100.0100, L501.5200 ####[facility] [address] [place], [address] MCV (RBC) [Entitic vol] 91.3 fL Normal 80-94 [facility] Comment on above: Order Comment: 210.1 Performed By: #### L 500.2500, L100.0100, L501.5200 ####[facility] [address] [place], [address] Monocytes/100 WBC (Bld) 11.4 % High 0-10 [facility] Comment on above: Order Comment: 210.1 Performed By: #### L 500.2500, L100.0100, L501.5200 ####[facility] [address] [place], [address] Neutrophils/100 WBC (Bld) 62.2 % Normal 47-70 [facility] Comment on above: Order Comment: 210.1 Performed By: #### L 500.2500, L100.0100, L501.5200 ####[facility] [address] [place], [address] Nucleated RBC (Bld) [#/Vol] 0 10*3/uL Normal 0-5 [facility] Comment on above: Order Comment: 210.1 Performed By: #### L 500.2500, L100.0100, L501.5200 ####[facility] [address] [place], [address] Platelet mean volume (Bld) [Entitic vol] 9.7 fL Normal 6.2-12.0 [facility] Comment on above: Order Comment: 210.1 Performed By: #### L 500.2500, L100.0100, L501.5200 ####[facility] [address] [place], [address] Platelets (Bld) [#/Vol] 185 10*3/uL Normal 150-450 [facility] Comment on above: Order Comment: 210.1 Performed By: #### L 500.2500, L100.0100, L501.5200 ####[facility] [address] [place], [address] RBC (Bld) [#/Vol] 4.58 10*6/uL Low 4.6-6.2 [facility] Comment on above: Order Comment: 210.1 Performed By: #### L 500.2500, L100.0100, L501.5200 ####[facility] [address] [place], [address] RDW SD 53.2 fl High 35.1-43.9 [facility] Comment on above: Order Comment: 210.1 Performed By: #### L 500.2500, L100.0100, L501.5200 ####[facility] [address] [place], [address] WBC (Bld) [#/Vol] 4.5 10*3/uL Normal 4.4-11.0 [facility] Comment on above: Order Comment: 210.1 Performed By: #### L 500.2114, L100.0100, L501.5200 ####[facility] [address] [place], [address] Carbon dioxide, total [Moles /volume] in Central venous bloodOrdered By: Dolly Marino on 11-04-2024 CO2 [Moles/Vol] 28.1 mmol/L 21.0-32.0 [facility] Chloride assayOrdered By: Darrin Marino on 11-04-2024 Chloride [Moles/Vol] 101 mmol/L 98-108 [facility] Eosinophil percentageOrdered By: Dolly Marino on 11-04-2024 Eosinophils/100 WBC (Bld) 1.6 % 0-5 [facility] Erythrocyte distribution wid th ratioOrdered By: Dolly Marino on 11-04-2024 Erythrocyte distribution width (RBC) [Ratio] 15.8 % High 11.6-14.6 [facility] Erythrocyte distribution wid th standard deviationOrdered By: Dolly Marino on 11-04-2024 Erythrocyte distribution width (RBC) [Ratio] 53.2 fl High 35.1-43.9 [facility] Glomerular filtration rate ( GFR) estimation/1.73 sq m using serum, plasma, or whole bOrdered By: Dolly Marino on 11-04-2024 GFR/1.73 sq M.predicted among non-blacks MDRD (S/P/Bld) [Vol rate/Area] 106 mL/min/{1.73_m2} >60 [facility] Comment on above: mL/min/1.73m2 CKD-EP I Creatinine Equation (2020) Hematocrit Auto (Bld) [Volum e fraction]Ordered By: Dolly Marino on 11-04-2024 Hematocrit (Bld) [Volume fraction] 41.8 % 40-54 [facility] Hemoglobin measurementOrdere d By: Dolly Marino on 11-04-2024 Hemoglobin (Bld) [Mass/Vol] 13.1 g/dL 13.0-16.5 [facility] Immature granulocytes/100 WB C Auto (Bld)Ordered By: Dolly Marino on 11-04-2024 Immature granulocytes/100 WBC (Bld) 0.400 % 0.0-0.9 [facility] Comment on above: IG% - Immature Granu locytes (promyelocytes, myelocytes and metamyelocytes) > 1% indicates that a LEFT SHIFT is Present. MCV (mean corpuscular volume ) determinationOrdered By: Dolly Marino on 11-04-2024 MCV (RBC) [Entitic vol] 91.3 fL 80-94 [facility] Magnesiumon 11-04-2024 Magnesium [Mass/Vol] 2.2 mg/dL Normal 1.5-2.2 [facility] Comment on above: Order Comment: 210.1 Performed By: #### L 500.2500, L100.0100, L501.5200 ####[facility] [address] [place], [address] Magnesium measurement (mass/ volume)Ordered By: Dolly Marino on 11-04-2024 Magnesium (Unsp spec) [Mass/Vol] 2.2 mg/dL 1.5-2.2 [facility] Mean corpuscular hemoglobin (MCH) determinationOrdered By: Dolly Marino on 11-04-2024 MCH (RBC) [Entitic mass] 28.6 pg 27.0-32.0 [facility] Mean corpuscular hemoglobin concentration (MCHC) determinationOrdered By: Dolly Marino on 11-04-2024 MCHC (RBC) [Mass/Vol] 31.3 g/dL Low 32-36 [facility] Mean platelet volume determi nationOrdered By: Dolly Marino on 11-04-2024 Platelet mean volume (Bld) [Entitic vol] 9.7 fL 6.2-12.0 [facility] Monocyte percentageOrdered B y: Dolly Marino on 11-04-2024 Monocytes/100 WBC (Bld) 11.4 % High 0-10 [facility] Neutrophil percentageOrdered By: Dolly Marino on 11-04-2024 Neutrophils/100 WBC (Bld) 62.2 % 47-70 [facility] Nucleated red blood cell per centageOrdered By: Dolly Marino on 11-04-2024 Nucleated RBC/100 WBC (Bld) [Ratio] 0 % 0-5 [facility] Platelet countOrdered By: Darrin Marino on 11-04-2024 Platelets (Bld) [#/Vol] 185 10*3/uL 150-450 [facility] Potassium measurement (mass/ volume)Ordered By: Dolly Marino on 11-04-2024 Potassium (Unsp spec) [Mass/Vol] 4.2 mmol/L 3.3-5.1 [facility] Comment on above: Hemolysis present, R esults could be affected. RBC Auto (Bld) [#/Vol]Ordere d By: Dolly Marino on 11-04-2024 RBC (Bld) [#/Vol] 4.58 10*6/uL Low 4.6-6.2 [facility] Serum creatinine measurement (mass/volume)Ordered By: Dolly Marino on 11-04-2024 Creatinine [Mass/Vol] 0.80 mg/dL 0.70-1.20 [facility] Serum glucose measurement (m ass/volume)Ordered By: Dolly Marino on 11-04-2024 Glucose [Mass/Vol] 96 mg/dL 70-99 [facility] Serum or plasma calcium scott urement (mass/volume)Ordered By: Dolly Marino on 11-04-2024 Calcium [Mass/Vol] 9.0 mg/dL 7.6-11.0 [facility] Serum or plasma urea nitroge n measurement (mass/volume)Ordered By: Dolly Marino on 11-04-2024 Urea nitrogen [Mass/Vol] 10 mg/dL 4-19 [facility] Sodium levelOrdered By: Missael Marino on 11-04-2024 Sodium [Moles/Vol] 139 mmol/L 133-145 [facility] White blood cell (WBC) count Ordered By: Dolly Marino on 11-04-2024 WBC (Bld) [#/Vol] 4.5 10*3/uL 4.4-11.0 [facility] Calculated very low density lipoprotein (VLDL) cholesterol measurementOrdered By: Dolly Marino on 10-30-2024 Calculated very low density lipoprotein (VLDL) cholesterol measurement 26 mg/dL 5-40 [facility] Hemoglobin A1con 10-30-2024 HbA1c (Bld) [Mass fraction] 5.8 % High <=5.6 [facility] Comment on above: Result Comment: Norm al < 5.7 % Prediabetic 5.7 - 6.4 % Diabetic >or= 6.5 % Please note range changes. Performed By: #### L 501.9985, L500.4100 ####[facility] [address] [place], [place], [id number] Hemoglobin A1c percentageOrd ered By: Dolly Marino on 10-30-2024 HbA1c (Bld) [Mass fraction] 5.8 % High <5.7 [facility] Comment on above: Normal < 5.7 % Predi abetic 5.7 - 6.4 % Diabetic >or= 6.5 % Please note range changes. LDL calc ser/plasOrdered By: Dolly Marino on 10-30-2024 Cholesterol in LDL [Mass/Vol] 34 mg/dL [facility] Comment on above: Bqfnehhioo=355-037 m g/dL & Higher Have=301 mg/dL or greater Lipid Profileon 10-30-2024 CHOL:HDL 3.64 Normal [facility] Comment on above: Performed By: #### L 501.9985, L500.4100 ####[facility] [address] [place], [place], [id number] Cholesterol [Mass/Vol] 83 mg/dL Normal <=200 [facility] Comment on above: Result Comment: Chol esterol level, Desirable <200 mg/dLBorderline high cholesterol 200-239 mg/dLHigh cholesterol >=240 mg/dLRecommendations of the NCEP Adult Treatment Panel for thefollowing risk-cutoff thresholds for the [place] Americanpopulation. Performed By: #### L 501.9985, L500.4100 ####[facility] [address] [place], [address] Cholesterol in HDL [Mass/Vol] 23 mg/dL Low [facility] Comment on above: Result Comment: Fern onal Cholesterol Education Program (NCEP) guidelines:<40 mg/dL: Low HDL-cholesterol (major risk factor for CHD)>= 60 mg/dL: High HDL-cholesterol (negative risk factor forCHD)HDL-cholesterol is affected by a number of factors, e.g.smoking, exercise, hormones, sex and age. Performed By: #### L 501.9985, L500.4100 ####[facility] [address] [place], [address] Cholesterol in LDL [Mass/Vol] 34 mg/dL Normal [facility] Comment on above: Result Comment: Bord myukjs=137-742 mg/dL Higher Eaio=650 mg/dL or greater Performed By: #### L 501.9985, L500.4100 ####[facility] [address] [place], [address] Cholesterol in VLDL [Mass/Vol] 26 mg/dL Normal 5-40 [facility] Comment on above: Performed By: #### L 501.9985, L500.4100 ####[facility] [address] [place], [address] Triglyceride [Mass/Vol] 129 mg/dL Normal [facility] Comment on above: Result Comment: The drugs N-Acetylcysteine and Metamizole may falselydepress this assay.Normal range: <150 mg/dLBorderline High: 150-199 mg/dLHigh: 200-499 mg/dLVery High: >500 mg/dL Performed By: #### L 501.9985, L500.4100 ####[facility] [address] [place], [address] Screening total cholesterol/ high density lipoprotein (HDL) cholesterol ratioOrdered By: Dolly Marino on 10-30-2024 Cholesterol.total/Chio sterol in HDL [Mass ratio] 3.64 {ratio} [facility] Serum or plasma cholesterol in HDL measurement (mass/volume)Ordered By: Dolly Marino on 10-30-2024 Cholesterol in HDL [Mass/Vol] 23 mg/dL Low >40 [facility] Comment on above: National Cholesterol Education Program (NCEP) guidelines:<40 mg/dL: Low HDL-cholesterol (major risk factor for CHD)>= 60 mg/dL: High HDL-cholesterol (negative risk factor for CHD)HDL-cholesterol is affected by a number of factors, e.g. smoking, exercise, hormones, sex and age. Serum or plasma cholesterol measurement (mass/volume)Ordered By: Dolly Marino on 10-30-2024 Cholesterol [Mass/Vol] 83 mg/dL <201 [facility] Comment on above: Cholesterol level, D esirable <200 mg/dLBorderline high cholesterol 200-239 mg/dLHigh cholesterol >=240 mg/dLRecommendations of the NCEP Adult Treatment Panel for the following risk-cutoff thresholds for the [place] population. Triglycerides measurementOrd ered By: Dolly Marino on 10-30-2024 Triglyceride [Mass/Vol] 129 mg/dL <199 [facility] Comment on above: The drugs N-Acetylcy steine and Metamizole may falsely depress this assay. Normal range: <150 mg/dLBorderline High: 150-199 mg/dLHigh: 200-499 mg/dLVery High: >500 mg/dL Absolute lymphocyte countOrd ered By: Dolly Marino on 10-28-2024 Lymphocytes Auto (Unsp spec) [#/Vol] 1.07 10*3/uL 0.83-4.51 [facility] Absolute neutrophil countOrd ered By: Dolly Marino on 10-28-2024 Neutrophils (Bld) [#/Vol] 2.8 10*3/uL 2.0-7.7 [facility] Anion gap in Serum or Plasma Ordered By: Dolly Marino on 10-28-2024 Anion gap [Moles/Vol] 10 mmol/L 5-15 [facility] Automated blood erythrocyte countOrdered By: Dolly Marino on 10-28-2024 RBC (Bld) [#/Vol] 4.52 10*6/uL Low 4.6-6.2 [facility] Comment on above: Order Comment: 210 Performed By: #### L 100.0100, L500.2500, L501.9520, L501.5200, L500.4100, L501.1400, L506.1001 ####[facility] [address] [place], [place], [id number] Automated blood hematocrit ( percentage)Ordered By: Dolly Marino on 10-28-2024 Hematocrit (Bld) [Volume fraction] 41.2 % Normal 40-54 [facility] Comment on above: Order Comment: 210 Performed By: #### L 100.0100, L500.2500, L501.9520, L501.5200, L500.4100, L501.1400, L506.1001 ####[facility] [address] [place], [address] Automated lymphocyte count a s percentage of total leukocytesOrdered By: Dolly Marino on 10-28-2024 Lymphocytes/100 WBC Auto (Unsp spec) 24.0 % 19-41 [facility] BUN/creatinine ratioOrdered By: Dolly Marino on 10-28-2024 Urea nitrogen/Creatinine [Mass ratio] 13.8 mg/mg 10-20 [facility] Basic Metabolic Profile (BMP )on 10-28-2024 BUN/CRE 13.8 RATIO Normal 10-20 [facility] Comment on above: Order Comment: 210 Performed By: #### L 100.0100, L500.2500, L501.9520, L501.5200, L500.4100, L501.1400, L506.1001 ####[facility] [address] [place], [address] GAP 10 Normal 5-15 [facility] Comment on above: Order Comment: 210 Performed By: #### L 100.0100, L500.2500, L501.9520, L501.5200, L500.4100, L501.1400, L506.1001 ####[facility] [address] [place], [address] Potassium [Moles/Vol] 4.1 mmol/L Normal 3.3-5.1 [facility] Comment on above: Order Comment: 210 Performed By: #### L 100.0100, L500.2500, L501.9520, L501.5200, L500.4100, L501.1400, L506.1001 ####[facility] [address] [place], [address] Basophil percentageOrdered B y: Dolly Marino on 10-28-2024 Basophils/100 WBC (Bld) 0.7 % Normal 0-1 [facility] Comment on above: Order Comment: 210 Performed By: #### L 100.0100, L500.2500, L501.9520, L501.5200, L500.4100, L501.1400, L506.1001 ####[facility] [address] [place], [address] CBC W/Diff, Automatedon 06-0 -2024 Absolute Lymph 1.07 X10 3/uL Normal 0.83-4.51 [facility] Comment on above: Order Comment: 210 Performed By: #### L 100.0100, L500.2500, L501.9520, L501.5200, L500.4100, L501.1400, L506.1001 ####[facility] [address] [place], [address] Absolute Neut 2.8 X10 3/uL Normal 2.0-7.7 [facility] Comment on above: Order Comment: 210 Performed By: #### L 100.0100, L500.2500, L501.9520, L501.5200, L500.4100, L501.1400, L506.1001 ####[facility] [address] [place], [address] IG% 0.400 Normal 0.0-0.9 [facility] Comment on above: Order Comment: 210 Result Comment: IG% - Immature Granulocytes (promyelocytes, myelocytes andmetamyelocytes) > 1% indicates that a LEFT SHIFT is Present. Performed By: #### L 100.0100, L500.2500, L501.9520, L501.5200, L500.4100, L501.1400, L506.1001 ####[facility] [address] [place], [address] Lymphocytes/100 WBC (Bld) 24.0 % Normal 19-41 [facility] Comment on above: Order Comment: 210 Performed By: #### L 100.0100, L500.2500, L501.9520, L501.5200, L500.4100, L501.1400, L506.1001 ####[facility] [address] [place], [address] Nucleated RBC (Bld) [#/Vol] 0 10*3/uL Normal 0-5 [facility] Comment on above: Order Comment: 210 Performed By: #### L 100.0100, L500.2500, L501.9520, L501.5200, L500.4100, L501.1400, L506.1001 ####[facility] [address] [place], [place], [id number] RDW SD 53.1 fl High 35.1-43.9 [facility] Comment on above: Order Comment: 210 Performed By: #### L 100.0100, L500.2500, L501.9520, L501.5200, L500.4100, L501.1400, L506.1001 ####[facility] [address] [place], [place], [id number] Calculated very low density lipoprotein (VLDL) cholesterol measurementOrdered By: Dolly Marino on 10-28-2024 Calculated very low density lipoprotein (VLDL) cholesterol measurement 26 mg/dL 5-40 [facility] Carbon dioxide, total [Moles /volume] in Central venous bloodOrdered By: Dolly Marino on 10-28-2024 CO2 [Moles/Vol] 27.1 mmol/L Normal 21.0-32.0 [facility] Comment on above: Order Comment: 210 Performed By: #### L 100.0100, L500.2500, L501.9520, L501.5200, L500.4100, L501.1400, L506.1001 ####[facility] [address] [place], [place], [id number] Chloride assayOrdered By: Darrin Marino on 10-28-2024 Chloride [Moles/Vol] 98 mmol/L Normal 98-108 [facility] Comment on above: Order Comment: 210 Performed By: #### L 100.0100, L500.2500, L501.9520, L501.5200, L500.4100, L501.1400, L506.1001 ####[facility] [address] [place], [place], [id number] Eosinophil percentageOrdered By: Dolly Marino on 10-28-2024 Eosinophils/100 WBC (Bld) 2.0 % Normal 0-5 [facility] Comment on above: Order Comment: 210 Performed By: #### L 100.0100, L500.2500, L501.9520, L501.5200, L500.4100, L501.1400, L506.1001 ####[facility] [address] [place], [place], [id number] Erythrocyte distribution wid th ratioOrdered By: Dolly Marino on 10-28-2024 Erythrocyte distribution width (RBC) [Ratio] 15.9 % High 11.6-14.6 [facility] Comment on above: Order Comment: 210 Performed By: #### L 100.0100, L500.2500, L501.9520, L501.5200, L500.4100, L501.1400, L506.1001 ####[facility] [address] [place], [place], [address] Erythrocyte distribution wid th standard deviationOrdered By: Dolly Marino on 10-28-2024 Erythrocyte distribution width (RBC) [Ratio] 53.1 fl High 35.1-43.9 [facility] Glomerular filtration rate ( GFR) estimation/1.73 sq m using serum, plasma, or whole bOrdered By: Dolly Marino on 10-28-2024 GFR/1.73 sq M.predicted among non-blacks MDRD (S/P/Bld) [Vol rate/Area] 108 mL/min/{1.73_m2} Normal >60 [facility] Comment on above: mL/min/1.73m2 CKD-EP I Creatinine Equation (2020) Order Comment: 210 Result Comment: mL/m in/1.73m2 CKD-EPI Creatinine Equation (2020) Performed By: #### L 100.0100, L500.2500, L501.9520, L501.5200, L500.4100, L501.1400, L506.1001 ####[facility] [address] [place], [place], [id number] Hemoglobin measurementOrdere d By: Dolly Marino on 10-28-2024 Hemoglobin (Bld) [Mass/Vol] 13.0 g/dL Normal 13.0-16.5 [facility] Comment on above: Order Comment: 210 Performed By: #### L 100.0100, L500.2500, L501.9520, L501.5200, L500.4100, L501.1400, L506.1001 ####[facility] [address] [place], [place], [id number] Immature granulocytes/100 WB C Auto (Bld)Ordered By: Dolly Marino on 10-28-2024 Immature granulocytes/100 WBC (Bld) 0.400 % 0.0-0.9 [facility] Comment on above: IG% - Immature Granu locytes (promyelocytes, myelocytes and metamyelocytes) > 1% indicates that a LEFT SHIFT is Present. LDL calc ser/plasOrdered By: Dolly Marino on 10-28-2024 Cholesterol in LDL [Mass/Vol] 46 mg/dL Normal [facility] Comment on above: Icuegolkwa=287-527 m g/dL & Higher Brev=730 mg/dL or greater Order Comment: 210 Result Comment: Bord psrnbx=[phone] mg/dL Higher Cfep=461 mg/dL or greater Performed By: #### L 100.0100, L500.2500, L501.9520, L501.5200, L500.4100, L501.1400, L506.1001 ####[facility] [address] [place], [address] Lipid Profileon 10-28-2024 CHOL:HDL 4.07 Normal [facility] Comment on above: Order Comment: 210 Performed By: #### L 100.0100, L500.2500, L501.9520, L501.5200, L500.4100, L501.1400, L506.1001 ####[facility] [address] [place], [place], [id number] Cholesterol in VLDL [Mass/Vol] 26 mg/dL Normal 5-40 [facility] Comment on above: Order Comment: 210 Performed By: #### L 100.0100, L500.2500, L501.9520, L501.5200, L500.4100, L501.1400, L506.1001 ####[facility] [address] [place], [address] MCV (mean corpuscular volume ) determinationOrdered By: Dolly Marino on 10-28-2024 MCV (RBC) [Entitic vol] 91.2 fL Normal 80-94 [facility] Comment on above: Order Comment: 210 Performed By: #### L 100.0100, L500.2500, L501.9520, L501.5200, L500.4100, L501.1400, L506.1001 ####[facility] [address] [place], [address] Magnesiumon 10-28-2024 Magnesium [Mass/Vol] 2.2 mg/dL Normal 1.5-2.2 [facility] Comment on above: Order Comment: 210 Performed By: #### L 100.0100, L500.2500, L501.9520, L501.5200, L500.4100, L501.1400, L506.1001 ####[facility] [address] [place], [place], [id number] Magnesium measurement (mass/ volume)Ordered By: Dolly Marino on 10-28-2024 Magnesium (Unsp spec) [Mass/Vol] 2.2 mg/dL 1.5-2.2 [facility] Mean corpuscular hemoglobin (MCH) determinationOrdered By: Dolly Marino on 10-28-2024 MCH (RBC) [Entitic mass] 28.8 pg Normal 27.0-32.0 [facility] Comment on above: Order Comment: 210 Performed By: #### L 100.0100, L500.2500, L501.9520, L501.5200, L500.4100, L501.1400, L506.1001 ####[facility] [address] [place], [place], [phone] Mean corpuscular hemoglobin concentration (MCHC) determinationOrdered By: Dolly Marino on 10-28-2024 MCHC (RBC) [Mass/Vol] 31.6 g/dL Low 32-36 [facility] Comment on above: Order Comment: 210 Performed By: #### L 100.0100, L500.2500, L501.9520, L501.5200, L500.4100, L501.1400, L506.1001 ####[facility] [address] [place], [address] Mean platelet volume determi nationOrdered By: Dolly Marino on 10-28-2024 Platelet mean volume (Bld) [Entitic vol] 9.6 fL Normal 6.2-12.0 [facility] Comment on above: Order Comment: 210 Performed By: #### L 100.0100, L500.2500, L501.9520, L501.5200, L500.4100, L501.1400, L506.1001 ####[facility] [address] [place], [address] Monocyte percentageOrdered B y: Dolly Marino on 10-28-2024 Monocytes/100 WBC (Bld) 11.0 % High 0-10 [facility] Comment on above: Order Comment: 210 Performed By: #### L 100.0100, L500.2500, L501.9520, L501.5200, L500.4100, L501.1400, L506.1001 ####[facility] [address] [place], [place], [phone] Neutrophil percentageOrdered By: Dolly Marino on 10-28-2024 Neutrophils/100 WBC (Bld) 61.9 % Normal 47-70 [facility] Comment on above: Order Comment: 210 Performed By: #### L 100.0100, L500.2500, L501.9520, L501.5200, L500.4100, L501.1400, L506.1001 ####[facility] [address] [place], [place], [phone] Nucleated red blood cell per centageOrdered By: Dolly Marino on 10-28-2024 Nucleated RBC/100 WBC (Bld) [Ratio] 0 % 0-5 [facility] Platelet countOrdered By: Darrin Marino on 10-28-2024 Platelets (Bld) [#/Vol] 154 10*3/uL Normal 150-450 [facility] Comment on above: Order Comment: 210 Performed By: #### L 100.0100, L500.2500, L501.9520, L501.5200, L500.4100, L501.1400, L506.1001 ####[facility] [address] [place], [place], [phone] Potassium measurement (mass/ volume)Ordered By: Dolly Marino on 10-28-2024 Potassium (Unsp spec) [Mass/Vol] 4.1 mmol/L 3.3-5.1 [facility] Screening total cholesterol/ high density lipoprotein (HDL) cholesterol ratioOrdered By: Dolly Marino on 10-28-2024 Cholesterol.total/Chio sterol in HDL [Mass ratio] 4.07 {ratio} [facility] Serum creatinine measurement (mass/volume)Ordered By: Dolly Marino on 10-28-2024 Creatinine [Mass/Vol] 0.74 mg/dL Normal 0.70-1.20 [facility] Comment on above: Order Comment: 210 Performed By: #### L 100.0100, L500.2500, L501.9520, L501.5200, L500.4100, L501.1400, L506.1001 ####[facility] [address] [place], [place], [phone] Serum glucose measurement (m ass/volume)Ordered By: Dolly Marino on 10-28-2024 Glucose [Mass/Vol] 108 mg/dL High 70-99 [facility] Comment on above: Order Comment: 210 Performed By: #### L 100.0100, L500.2500, L501.9520, L501.5200, L500.4100, L501.1400, L506.1001 ####[facility] [address] [place], [place], [phone] Serum or plasma calcium scott urement (mass/volume)Ordered By: Dolly Marino on 10-28-2024 Calcium [Mass/Vol] 8.9 mg/dL Normal 7.6-11.0 [facility] Comment on above: Order Comment: 210 Performed By: #### L 100.0100, L500.2500, L501.9520, L501.5200, L500.4100, L501.1400, L506.1001 ####[facility] [address] [place], [address] Serum or plasma cholesterol in HDL measurement (mass/volume)Ordered By: Dolly Marino on 10-28-2024 Cholesterol in HDL [Mass/Vol] 23 mg/dL Low [facility] Comment on above: National Cholesterol Education [...] By: #### L 100.0100, L500.2500, L501.9520, L501.5200, L500.4100, L501.1400, L506.1001 ####[facility] [address] [place], [address] Serum or plasma cholesterol measurement (mass/volume)Ordered By: Dolly Marino on 10-28-2024 Cholesterol [Mass/Vol] 95 mg/dL Normal <=200 [facility] Comment on above: Cholesterol level, D esirable <200 mg/dLBorderline high cholesterol 200-239 mg/dLHigh cholesterol >=240 mg/dLRecommendations of the NCEP Adult Treatment Panel for the following risk-cutoff thresholds for the [place] population. Order Comment: 210 Result Comment: Chol esterol level, Desirable <200 mg/dLBorderline high cholesterol 200-239 mg/dLHigh cholesterol >=240 mg/dLRecommendations of the NCEP Adult Treatment Panel for thefollowing risk-cutoff thresholds for the [place] Americanpopulation. Performed By: #### L 100.0100, L500.2500, L501.9520, L501.5200, L500.4100, L501.1400, L506.1001 ####[facility] [address] [place], [place], [phone] Serum or plasma urea nitroge n measurement (mass/volume)Ordered By: Dolly Marino on 10-28-2024 Urea nitrogen [Mass/Vol] 10 mg/dL Normal 4-19 [facility] Comment on above: Order Comment: 210 Performed By: #### L 100.0100, L500.2500, L501.9520, L501.5200, L500.4100, L501.1400, L506.1001 ####[facility] [address], [address] Serum or plasma uric acid me asurement (mass/volume)Ordered By: Dolly Marino on 10-28-2024 Urate [Mass/Vol] 5.8 mg/dL 3.5-7.2 [facility] Comment on above: The drugs N-Acetylcy steine and Metamizole may falsely depress this assay. Sodium levelOrdered By: Missael Marino on 10-28-2024 Sodium [Moles/Vol] 135 mmol/L Normal 133-145 [facility] Comment on above: Order Comment: 210 Performed By: #### L 100.0100, L500.2500, L501.9520, L501.5200, L500.4100, L501.1400, L506.1001 ####[facility] [address] [place], [place], [phone] TSH DL <= 0.005 mIU/L QnOrde red By: oDlly Marino on 10-28-2024 TSH Qn 3.370 uIU/mL 0.300-4.200 [facility] Thyroid Stim Hormone (TSH)on 10-28-2024 TSH 3.370 uIU/mL Normal 0.300-4.200 [facility] Comment on above: Order Comment: 210 Performed By: #### L 100.0100, L500.2500, L501.9520, L501.5200, L500.4100, L501.1400, L506.1001 ####[facility] [address] [place], [place], [address] Triglycerides measurementOrd ered By: Dolly Marino on 10-28-2024 Triglyceride [Mass/Vol] 129 mg/dL Normal [facility] Comment on above: The drugs N-Acetylcy steine and Metamizole may falsely depress this assay. Normal range: <150 mg/dLBorderline High: 150-199 mg/dLHigh: 200-499 mg/dLVery High: >500 mg/dL Order Comment: 210 Result Comment: The drugs N-Acetylcysteine and Metamizole may falselydepress this assay.Normal range: <150 mg/dLBorderline High: 150-199 mg/dLHigh: 200-499 mg/dLVery High: >500 mg/dL Performed By: #### L 100.0100, L500.2500, L501.9520, L501.5200, L500.4100, L501.1400, L506.1001 ####[facility] [address] [place], [address] Uric Acidon 10-28-2024 URIC 5.8 mg/dL Normal 3.5-7.2 [facility] Comment on above: Order Comment: 210 Result Comment: The drugs N-Acetylcysteine and Metamizole may falselydepress this assay. Performed By: #### L 100.0100, L500.2500, L501.9520, L501.5200, L500.4100, L501.1400, L506.1001 ####[facility] [address] [place], [address] Vitamin D,25 Hydroxyon 10-28 Vitamin D 25-OH < 6.0 Low 30-100 [facility] Comment on above: Order Comment: 210 Result Comment: Colleen min D StatusDeficiency: <20 ng/mL (50nmol/L)Insufficiency: 20-30 ng/mL (50-75 nmol/L)Sufficiency: 30-100 ng/mL (75-250 nmol/L)Toxicity: >100 ng/mL (>250 nmol/L) Performed By: #### L 100.0100, L500.2500, L501.9520, L501.5200, L500.4100, L501.1400, L506.1001 ####[facility] [address] [place], [address] White blood cell (WBC) count Ordered By: Dolly Marino on 10-28-2024 WBC (Bld) [#/Vol] 4.5 10*3/uL Normal 4.4-11.0 [facility] Comment on above: Order Comment: 210 Performed By: #### L 100.0100, L500.2500, L501.9520, L501.5200, L500.4100, L501.1400, L506.1001 ####[facility] [address] [place], [place], [phone] Anion gap in Serum or Plasma Ordered By: Dolly Marino on 10-24-2024 Anion gap [Moles/Vol] 9 mmol/L 5- [facility] BUN/creatinine ratioOrdered By: Dolly Marino on 10-24-2024 Urea nitrogen/Creatinine [Mass ratio] 14.6 mg/mg 10-20 [facility] Bilirubin, totalOrdered By: Dolly Marino on 10-24-2024 Bilirubin [Mass/Vol] 0.31 mg/dL 0.00-1.30 [facility] CBC-Complete Blood Cnt No Di ffon 10-24-2024 Erythrocyte distribution width (RBC) [Ratio] 15.6 % High 11.6-14.6 [facility] Comment on above: Performed By: #### L 500.4050, L100.0500 ####[facility] [address] [place], [address] Hematocrit (Bld) [Volume fraction] 40.1 % Normal 40-54 [facility] Comment on above: Performed By: #### L 500.4050, L100.0500 ####[facility] [address] [place], [address] Hemoglobin (Bld) [Mass/Vol] 12.7 g/dL Low 13.0-16.5 [facility] Comment on above: Performed By: #### L 500.4050, L100.0500 ####[facility] [address] [place], [address] MCH (RBC) [Entitic mass] 28.7 pg Normal 27.0-32.0 [facility] Comment on above: Performed By: #### L 500.4050, L100.0500 ####[facility] [address] [place], [address] MCHC (RBC) [Mass/Vol] 31.7 g/dL Low 32-36 [facility] Comment on above: Performed By: #### L 500.4050, L100.0500 ####[facility] [address] [place], [address] MCV (RBC) [Entitic vol] 90.7 fL Normal 80-94 [facility] Comment on above: Performed By: #### L 500.4050, L100.0500 ####[facility] [address] [place], [address] Platelet mean volume (Bld) [Entitic vol] 9.3 fL Normal 6.2-12.0 [facility] Comment on above: Performed By: #### L 500.4050, L100.0500 ####[facility] [address] [place], [address] Platelets (Bld) [#/Vol] 155 10*3/uL Normal 150-450 [facility] Comment on above: Performed By: #### L 500.4050, L100.0500 ####[facility] [address] [place], [address] RBC (Bld) [#/Vol] 4.42 10*6/uL Low 4.6-6.2 [facility] Comment on above: Performed By: #### L 500.4050, L100.0500 ####[facility] [address] [place], [address] RDW SD 51.8 fl High 35.1-43.9 [facility] Comment on above: Performed By: #### L 500.4050, L100.0500 ####[facility] [address] [place], [address] WBC (Bld) [#/Vol] 4.6 10*3/uL Normal 4.4-11.0 [facility] Comment on above: Performed By: #### L 500.4050, L100.0500 ####[facility] [address] [place], [address] Carbon dioxide, total [Moles /volume] in Central venous bloodOrdered By: Dolly Marino on 10-24-2024 CO2 [Moles/Vol] 29.2 mmol/L 21.0-32.0 [facility] Chloride assayOrdered By: Darrin Marino on 10-24-2024 Chloride [Moles/Vol] 99 mmol/L 98-108 [facility] Comprehensive Metabolic Prof ilon 10-24-2024 Albumin [Mass/Vol] 3.4 g/dL Low 3.5-5.0 [facility] Comment on above: Performed By: #### L 500.4050, L100.0500 ####[facility] [address] [place], [address] Albumin/Globulin [Mass ratio] 1.0 {ratio} Normal 0.9-2.4 [facility] Comment on above: Performed By: #### L 500.4050, L100.0500 ####[facility] [address] [place], [address] ALK PHOS 76 U/L Normal 40-129 [facility] Comment on above: Performed By: #### L 500.4050, L100.0500 ####[facility] [address] [place], [address] ALT [Catalytic activity/Vol] 6 U/L Normal <=46 [facility] Comment on above: Performed By: #### L 500.4050, L100.0500 ####[facility] [address] [place], [address] AST [Catalytic activity/Vol] 18 U/L Normal <=37 [facility] Comment on above: Performed By: #### L 500.4050, L100.0500 ####[facility] [address] [place], [address] Bilirubin [Mass/Vol] 0.31 mg/dL Normal 0.00-1.30 [facility] Comment on above: Performed By: #### L 500.4050, L100.0500 ####[facility] [address] [place], [address] BUN/CRE 14.6 RATIO Normal 10-20 [facility] Comment on above: Performed By: #### L 500.4050, L100.0500 ####[facility] [address] [place], [address] Calcium [Mass/Vol] 9.0 mg/dL Normal 7.6-11.0 [facility] Comment on above: Performed By: #### L 500.4050, L100.0500 ####[facility] [address] [place], [address] Chloride [Moles/Vol] 99 mmol/L Normal 98-108 [facility] Comment on above: Performed By: #### L 500.4050, L100.0500 ####[facility] [address] [place], [address] CO2 [Moles/Vol] 29.2 mmol/L Normal 21.0-32.0 [facility] Comment on above: Performed By: #### L 500.4050, L100.0500 ####[facility] [address] [place], [address] Creatinine [Mass/Vol] 0.65 mg/dL Low 0.70-1.20 [facility] Comment on above: Performed By: #### L 500.4050, L100.0500 ####[facility] [address] [place], [address] GAP 9 Normal 5-15 [facility] Comment on above: Performed By: #### L 500.4050, L100.0500 ####[facility] [address] [place], [address] GFR/1.73 sq M.predicted among non-blacks MDRD (S/P/Bld) [Vol rate/Area] 113 mL/min/{1.73_m2} Normal >60 [facility] Comment on above: Result Comment: mL/m in/1.73m2 CKD-EPI Creatinine Equation (2020) Performed By: #### L 500.4050, L100.0500 ####[facility] [address] [place], [address] Globulin (S) [Mass/Vol] 3.2 g/dL Normal 2.2-4.2 [facility] Comment on above: Performed By: #### L 500.4050, L100.0500 ####[facility] [address] [place], [address] Glucose [Mass/Vol] 113 mg/dL High 70-99 [facility] Comment on above: Performed By: #### L 500.4050, L100.0500 ####[facility] [address] [place], [address] Potassium [Moles/Vol] 3.8 mmol/L Normal 3.3-5.1 [facility] Comment on above: Performed By: #### L 500.4050, L100.0500 ####[facility] [address] [place], [address] Sodium [Moles/Vol] 137 mmol/L Normal 133-145 [facility] Comment on above: Performed By: #### L 500.4050, L100.0500 ####[facility] [address] [place], [address] T PROT 6.6 g/dL Normal 5.9-8.4 [facility] Comment on above: Performed By: #### L 500.4050, L100.0500 ####[facility] [address] [place], [address] Urea nitrogen [Mass/Vol] 10 mg/dL Normal 4-19 [facility] Comment on above: Performed By: #### L 500.4050, L100.0500 ####[facility] [address] [place], [address] Erythrocyte distribution wid th ratioOrdered By: Dolly Marino on 10-24-2024 Erythrocyte distribution width (RBC) [Ratio] 15.6 % High 11.6-14.6 [facility] Erythrocyte distribution wid th standard deviationOrdered By: Dolly Marino on 10-24-2024 Erythrocyte distribution width (RBC) [Ratio] 51.8 fl High 35.1-43.9 [facility] Glomerular filtration rate ( GFR) estimation/1.73 sq m using serum, plasma, or whole bOrdered By: Dolly Marino on 10-24-2024 GFR/1.73 sq M.predicted among non-blacks MDRD (S/P/Bld) [Vol rate/Area] 113 mL/min/{1.73_m2} >60 [facility] Comment on above: mL/min/1.73m2 CKD-EP I Creatinine Equation (2020) Hematocrit Auto (Bld) [Volum e fraction]Ordered By: Dolly Marino on 10-24-2024 Hematocrit (Bld) [Volume fraction] 40.1 % 40-54 [facility] Hemoglobin measurementOrdere d By: Dolly Mraino on 10-24-2024 Hemoglobin (Bld) [Mass/Vol] 12.7 g/dL Low 13.0-16.5 [facility] Laboratory - Chemistry and C hemistry - challengeOrdered By: Dolly Marino on 10-24-2024 AST [Catalytic activity/Vol] 18 U/L <38 [facility] MCV (mean corpuscular volume ) determinationOrdered By: Dolly Marino on 10-24-2024 MCV (RBC) [Entitic vol] 90.7 fL 80-94 [facility] Mean corpuscular hemoglobin (MCH) determinationOrdered By: Dolly Marino on 10-24-2024 MCH (RBC) [Entitic mass] 28.7 pg 27.0-32.0 [facility] Mean corpuscular hemoglobin concentration (MCHC) determinationOrdered By: Dolly Marino on 10-24-2024 MCHC (RBC) [Mass/Vol] 31.7 g/dL Low 32-36 [facility] Mean platelet volume determi nationOrdered By: Dolly Marino on 10-24-2024 Platelet mean volume (Bld) [Entitic vol] 9.3 fL 6.2-12.0 [facility] Platelet countOrdered By: Darrin Marino on 10-24-2024 Platelets (Bld) [#/Vol] 155 10*3/uL 150-450 [facility] Potassium measurement (mass/ volume)Ordered By: Dolly Marino on 10-24-2024 Potassium (Unsp spec) [Mass/Vol] 3.8 mmol/L 3.3-5.1 [facility] RBC Auto (Bld) [#/Vol]Ordere d By: Dolly Marino on 10-24-2024 RBC (Bld) [#/Vol] 4.42 10*6/uL Low 4.6-6.2 [facility] Serum creatinine measurement (mass/volume)Ordered By: Dolly Marino on 10-24-2024 Creatinine [Mass/Vol] 0.65 mg/dL Low 0.70-1.20 [facility] Serum globulin measurementOr dered By: Dolly Marino on 10-24-2024 Globulin (S) [Mass/Vol] 3.2 g/dL 2.2-4.2 [facility] Serum glucose measurement (m ass/volume)Ordered By: Dolly Marino on 10-24-2024 Glucose [Mass/Vol] 113 mg/dL High 70-99 [facility] Serum or plasma alanine linda otransferase (ALT) measurementOrdered By: Dolly Marino on 10-24-2024 ALT [Catalytic activity/Vol] 6 U/L <47 [facility] Serum or plasma albumin scott urement (mass/volume)Ordered By: Dolly Marino on 10-24-2024 Albumin [Mass/Vol] 3.4 g/dL Low 3.5-5.0 [facility] Serum or plasma albumin/glob ulin mass ratioOrdered By: Dolly Marino on 10-24-2024 Albumin/Globulin [Mass ratio] 1.0 {ratio} 0.9-2.4 [facility] Serum or plasma alkaline kamaljit sphatase measurementOrdered By: Dolly Marino on 10-24-2024 ALP [Catalytic activity/Vol] 76 U/L 40-129 [facility] Serum or plasma calcium scott urement (mass/volume)Ordered By: Dolly Marino on 10-24-2024 Calcium [Mass/Vol] 9.0 mg/dL 7.6-11.0 [facility] Serum or plasma urea nitroge n measurement (mass/volume)Ordered By: Dolly Marino on 10-24-2024 Urea nitrogen [Mass/Vol] 10 mg/dL 4-19 [facility] Sodium levelOrdered By: Missael Marino on 10-24-2024 Sodium [Moles/Vol] 137 mmol/L 133-145 [facility] Total proteinOrdered By: Sahara Marino on 10-24-2024 Protein [Mass/Vol] 6.6 g/dL 5.9-8.4 [facility] White blood cell (WBC) count Ordered By: Dolly Marino on 10-24-2024 WBC (Bld) [#/Vol] 4.6 10*3/uL 4.4-11.0 [facility] LABORATORYOrdered By: Samanta Morin on 10-23-2024 Blood Glucose Testing Reason Routine (10/23/24 8:27 PM) [facility] Glucose [Mass/Vol] 168 mg/dL High 70 - 110 mg/dL [facility] LABORATORYOrdered By: Sarah Carrillo on 10-23-2024 Blood Glucose Testing Reason Routine (10/23/24 5:31 PM) [facility] Glucose [Mass/Vol] 146 mg/dL High 70 - 110 mg/dL [facility] LABORATORYOrdered By: Gianna Mendez on 10-23-2024 Blood Glucose Testing Reason Routine (10/23/24 12:15 PM) [facility] Glucose [Mass/Vol] 154 mg/dL High 70 - 110 mg/dL [facility] Comment on above: Result Comment: noti fiekta nurse SHAHEEN Staples .Auto Diffon 10-20-2024 Basophil, Absolute 0.0 10 3/mcL Normal 0.0-0.3 [facility] Comment on above: Performed By: #### C BC, MG, GFR, ADIFF, BMP, ANEU #### [facility] [address] [place] [address] Basophils/100 WBC (Bld) 0.6 % Normal 0.0-2.5 [facility] Comment on above: Performed By: #### C BC, MG, GFR, ADIFF, BMP, ANEU #### [facility] [address] [place] [address] Eosinophil, Absolute 0.1 10 3/mcL Normal 0.0-0.7 [facility] Comment on above: Performed By: #### C BC, MG, GFR, ADIFF, BMP, ANEU #### [address] [address] Eosinophils/100 WBC (Bld) 1.5 % Normal 0.0-6.0 [facility] Comment on above: Performed By: #### C BC, MG, GFR, ADIFF, BMP, ANEU #### [address] [address] Lymphocyte, Absolute 1.0 10 3/mcL Normal 0.9-4.3 [facility] Comment on above: Performed By: #### C BC, MG, GFR, ADIFF, BMP, ANEU #### [address] [address] Lymphocytes/100 WBC (Bld) 21.2 % Normal 20.0-40.0 [facility] Comment on above: Performed By: #### C BC, MG, GFR, ADIFF, BMP, ANEU #### [address] [address] Monocyte, Absolute 0.6 10 3/mcL Normal 0.1-1.4 [facility] Comment on above: Performed By: #### C BC, MG, GFR, ADIFF, BMP, ANEU #### [address] [address] Monocytes/100 WBC (Bld) 11.6 % Normal 2.0-13.0 [facility] Comment on above: Performed By: #### C BC, MG, GFR, ADIFF, BMP, ANEU #### [address] [address] Neutrophils/100 WBC (Bld) 65.1 % Normal 50.0-75.0 [facility] Comment on above: Performed By: #### C BC, MG, GFR, ADIFF, BMP, ANEU #### [address] [address] .GFRon 10-20-2024 Estimated Glomerular Filtration Rate 108 ml/min/1.73sqm Normal [facility] Comment on [...] BC, MG, GFR, ADIFF, BMP, ANEU #### [address] [address] .NEUABSon 10-20-2024 Neutrophil, Absolute 3.2 10 3/mcL Normal 2.3-8.1 [facility] [facility] Comment on above: Performed By: #### C BC, MG, GFR, ADIFF, BMP, ANEU #### [place] [id number] [facility] BUN/Creatinine Ratio 10.8 ratio Normal 10.0-22.0 [facility] Comment on above: Performed By: #### C BC, MG, GFR, ADIFF, BMP, ANEU #### [address] [address] Calcium [Mass/Vol] 8.7 mg/dL Normal 8.7-10.4 [facility] MAIN Comment on above: Performed By: #### C BC, MG, GFR, ADIFF, BMP, ANEU #### [address] [address] Chloride [Moles/Vol] 97 mmol/L Low 98-110 [facility] Comment on above: Performed By: #### C BC, MG, GFR, ADIFF, BMP, ANEU #### [address] [address] CO2 [Moles/Vol] 37 mmol/L High 22-32 [facility] MAIN Comment on above: Performed By: #### C BC, MG, GFR, ADIFF, BMP, ANEU #### [address] [address] Creatinine [Mass/Vol] 0.74 mg/dL Normal 0.60-1.40 [facility] MAIN Comment on above: Result Comment: Test ing performed on Evgen analyzer using enzymatic creatinine methodology. Performed By: #### C BC, MG, GFR, ADIFF, BMP, ANEU #### [place] [id number] Electrolyte Balance 4.0 mEq/L Normal 4.0-15.0 [facility] MAIN Comment on above: Performed By: #### C BC, MG, GFR, ADIFF, BMP, ANEU #### [place] [id number] Glucose [Mass/Vol] 116 mg/dL High 70-110 [facility] MAIN Comment on above: Performed By: #### C BC, MG, GFR, ADIFF, BMP, ANEU #### [place] [address] Potassium [Moles/Vol] 3.5 mmol/L Normal 3.5-5.0 [facility] MAIN Comment on above: Performed By: #### C BC, MG, GFR, ADIFF, BMP, ANEU #### [place] [id number] Sodium [Moles/Vol] 138 mmol/L Normal 136-145 [facility] MAIN Comment on above: Performed By: #### C BC, MG, GFR, ADIFF, BMP, ANEU #### [place] [id number] Urea nitrogen [Mass/Vol] 8.0 mg/dL Normal 8.0-22.0 [facility] MAIN Comment on above: Performed By: #### C BC, MG, GFR, ADIFF, BMP, ANEU #### [address] [address] CBCon 10-20-2024 Erythrocyte distribution width (RBC) [Ratio] 16.8 % High 11.5-15.5 [facility] MAIN Comment on above: Performed By: #### C BC, MG, GFR, ADIFF, BMP, ANEU #### [place] [id number] Hematocrit (Bld) [Volume fraction] 41.3 % Normal 40.0-52.0 [facility] MAIN Comment on above: Performed By: #### C BC, MG, GFR, ADIFF, BMP, ANEU #### [place] [address] Hgb 13.4 G/dL Normal 13.0-17.5 [facility] MAIN Comment on above: Performed By: #### C BC, MG, GFR, ADIFF, BMP, ANEU #### [place] [address] MCH (RBC) [Entitic mass] 28.7 pg Normal 27.0-33.0 [facility] MAIN Comment on above: Performed By: #### C BC, MG, GFR, ADIFF, BMP, ANEU #### [place] [address] MCHC 32.4 G/dL Normal 32.0-36.0 [facility] MAIN Comment on above: Performed By: #### C BC, MG, GFR, ADIFF, BMP, ANEU #### [place] [address] MCV (RBC) [Entitic vol] 88.5 fL Normal 81.0-100.0 [facility] MAIN Comment on above: Performed By: #### C BC, MG, GFR, ADIFF, BMP, ANEU #### [place] [address] Platelet 175 10 3/mcL Normal 150-450 [facility] MAIN Comment on above: Performed By: #### C BC, MG, GFR, ADIFF, BMP, ANEU #### [place] [address] Platelet mean volume (Bld) [Entitic vol] 7.3 fL Normal 6.4-10.5 [facility] MAIN Comment on above: Performed By: #### C BC, MG, GFR, ADIFF, BMP, ANEU #### [place] [address] RBC 4.67 10 6/mcL Normal 4.50-6.00 [facility] MAIN Comment on above: Performed By: #### C BC, MG, GFR, ADIFF, BMP, ANEU #### [address] [place] [address] WBC 4.8 10 3/mcL Normal 4.5-10.8 [facility] MAIN Comment on above: Performed By: #### C BC, MG, GFR, ADIFF, BMP, ANEU #### [address] [address] LABORATORYOrdered By: SYSTEM SYSTEM on 10-20-2024 Basophils [...] 0.74 mg/dL Normal 0.60 - 1.40 mg/dL AH ADM SS Comment on above: Interpretive Data: T esting performed on Evgen analyzer using enzymatic creatinine methodology. Electrolyte Balance [...] ratio AH ADM SS WBC (Bld) [#/Vol] 4.8 103/mcL Normal 4.5 - 10.8 10^3/mcL Workflow SS .Auto Diffon 10-19-2024 Basophil, Absolute 0.0 10 3/mcL Normal 0.0-0.3 [facility] MA[facility] Comment on above: Performed By: #### C BC, MG, GFR, ADIFF, BMP, ANEU #### [address] [address] Basophils/100 WBC (Bld) 0.7 % Normal 0.0-2.5 [facility] MAIN Comment on above: Performed By: #### C BC, MG, GFR, ADIFF, BMP, ANEU #### [address] [address] Eosinophil, Absolute 0.1 10 3/mcL Normal 0.0-0.7 [facility] Comment on above: Performed By: #### C BC, MG, GFR, ADIFF, BMP, ANEU #### [address] [address] Eosinophils/100 WBC (Bld) 1.9 % Normal 0.0-6.0 [facility] MAIN Comment on above: Performed By: #### C BC, MG, GFR, ADIFF, BMP, ANEU #### [address] [address] Lymphocyte, Absolute 1.0 10 3/mcL Normal 0.9-4.3 [facility] Comment on above: Performed By: #### C BC, MG, GFR, ADIFF, BMP, ANEU #### [address] [address] Lymphocytes/100 WBC (Bld) 18.3 % Low 20.0-40.0 [facility] MAIN Comment on above: Performed By: #### C BC, MG, GFR, ADIFF, BMP, ANEU #### [address] [address] Monocyte, Absolute 0.5 10 3/mcL Normal 0.1-1.4 [facility] MA[facility] Comment on above: Performed By: #### C BC, MG, GFR, ADIFF, BMP, ANEU #### [address] [address] Monocytes/100 WBC (Bld) 9.1 % Normal 2.0-13.0 [facility] MAIN Comment on above: Performed By: #### C BC, MG, GFR, ADIFF, BMP, ANEU #### [address] [address] Neutrophils/100 WBC (Bld) 70.0 % Normal 50.0-75.0 [facility] MAIN Comment on above: Performed By: #### C BC, MG, GFR, ADIFF, BMP, ANEU #### [address] [address] .GFRon 10-19-2024 Estimated Glomerular Filtration Rate 109 ml/min/1.73sqm Normal [facility] MAIN Comment on [...] BC, MG, GFR, ADIFF, BMP, ANEU #### [address] [address] .NEUABSon 10-19-2024 Neutrophil, Absolute 3.8 10 3/mcL Normal 2.3-8.1 [facility] MA[facility] Comment on above: Performed By: #### C BC, MG, GFR, ADIFF, BMP, ANEU #### [address] [address] BMPon 10-19-2024 BUN/Creatinine Ratio 11.1 ratio Normal 10.0-22.0 [facility] MA[facility] Comment on above: Performed By: #### C BC, MG, GFR, ADIFF, BMP, ANEU #### [address] [address] Calcium [Mass/Vol] 8.7 mg/dL Normal 8.7-10.4 [facility] MAIN Comment on above: Performed By: #### C BC, MG, GFR, ADIFF, BMP, ANEU #### [address] [address] Chloride [Moles/Vol] 100 mmol/L Normal 98-110 [facility] Comment on above: Performed By: #### C BC, MG, GFR, ADIFF, BMP, ANEU #### [address] [address] CO2 [Moles/Vol] 33 mmol/L High 22-32 [facility] MAIN Comment on above: Performed By: #### C BC, MG, GFR, ADIFF, BMP, ANEU #### [place] [id number] Creatinine [Mass/Vol] 0.72 mg/dL Normal 0.60-1.40 [facility] MAIN Comment on above: Result Comment: Test ing performed on Evgen analyzer using enzymatic creatinine methodology. Performed By: #### C BC, MG, GFR, ADIFF, BMP, ANEU #### [address] [address] Electrolyte Balance 4.0 mEq/L Normal 4.0-15.0 [facility] MAIN Comment on above: Performed By: #### C BC, MG, GFR, ADIFF, BMP, ANEU #### [address] [address] Glucose [Mass/Vol] 181 mg/dL High 70-110 [facility] MA[facility] Comment on above: Performed By: #### C BC, MG, GFR, ADIFF, BMP, ANEU #### [address] [address] Potassium [Moles/Vol] 3.5 mmol/L Normal 3.5-5.0 [facility] MAIN Comment on above: Performed By: #### C BC, MG, GFR, ADIFF, BMP, ANEU #### [place] [id number] Sodium [Moles/Vol] 137 mmol/L Normal 136-145 [facility] MAIN Comment on above: Performed By: #### C BC, MG, GFR, ADIFF, BMP, ANEU #### [place] [address] Urea nitrogen [Mass/Vol] 8.0 mg/dL Normal 8.0-22.0 [facility] MAIN Comment on above: Performed By: #### C BC, MG, GFR, ADIFF, BMP, ANEU #### [place] [address] CBCon 10-19-2024 Erythrocyte distribution width (RBC) [Ratio] 17.3 % High 11.5-15.5 [facility] MAIN Comment on above: Performed By: #### C BC, MG, GFR, ADIFF, BMP, ANEU #### [place] [address] Hematocrit (Bld) [Volume fraction] 40.5 % Normal 40.0-52.0 [facility] MAIN Comment on above: Performed By: #### C BC, MG, GFR, ADIFF, BMP, ANEU #### [place] [address] Hgb 13.0 G/dL Normal 13.0-17.5 [facility] MAIN Comment on above: Performed By: #### C BC, MG, GFR, ADIFF, BMP, ANEU #### [place] [address] MCH (RBC) [Entitic mass] 28.6 pg Normal 27.0-33.0 [facility] MAIN Comment on above: Performed By: #### C BC, MG, GFR, ADIFF, BMP, ANEU #### [place] [address] MCHC 32.1 G/dL Normal 32.0-36.0 [facility] MAIN Comment on above: Performed By: #### C BC, MG, GFR, ADIFF, BMP, ANEU #### [place] [address] MCV (RBC) [Entitic vol] 89.2 fL Normal 81.0-100.0 [facility] MAIN Comment on above: Performed By: #### C BC, MG, GFR, ADIFF, BMP, ANEU #### [place] [address] Platelet 171 10 3/mcL Normal 150-450 [facility] MAIN Comment on above: Performed By: #### C BC, MG, GFR, ADIFF, BMP, ANEU #### [place] [address] Platelet mean volume (Bld) [Entitic vol] 7.6 fL Normal 6.4-10.5 [facility] MAIN Comment on above: Performed By: #### C BC, MG, GFR, ADIFF, BMP, ANEU #### [place] [address] RBC 4.54 10 6/mcL Normal 4.50-6.00 [facility] MAIN Comment on above: Performed By: #### C BC, MG, GFR, ADIFF, BMP, ANEU #### [place] [address] WBC 5.4 10 3/mcL Normal 4.5-10.8 [facility] MAIN Comment on above: Performed By: #### C BC, MG, GFR, ADIFF, BMP, ANEU #### [place] [address] LABORATORYOrdered By: SYSTEM SYSTEM on 10-19-2024 Basophils [...] above: Interpretive Data: T esting performed on Evgen analyzer using enzymatic creatinine methodology. Electrolyte Balance [...] 28.6 pg Normal 27.0 - 33.0 pg Workflow SS MCHC 32.1 G/dL Normal 32.0 - 36.0 G/dL Workflow SS MCV (RBC) [Entitic vol] 89.2 fL Normal 81.0 - 100.0 fL Workflow SS Monocytes (Bld) [#/Vol] 0.5 103/mcL Normal 0.1 - 1.4 10^3/mcL Workflow SS Monocytes/100 WBC (Bld) 9.1 % [...] Basophil, Absolute 0.0 10 3/mcL Normal 0.0-0.3 [facility] MA[facility] Comment on above: Performed By: #### A DIFF, ANEU, BMP, CBC, GFR #### [address] [address] Basophils/100 WBC (Bld) 0.6 % Normal 0.0-2.5 [facility] MAIN Comment on above: Performed By: #### A DIFF, ANEU, BMP, CBC, GFR #### [address] [address] Eosinophil, Absolute 0.1 10 3/mcL Normal 0.0-0.7 [facility] MA[facility] Comment on above: Performed By: #### A DIFF, ANEU, BMP, CBC, GFR #### [address] [address] Eosinophils/100 WBC (Bld) 1.7 % Normal 0.0-6.0 [facility] MAIN Comment on above: Performed By: #### A DIFF, ANEU, BMP, CBC, GFR #### [address] [address] Lymphocyte, Absolute 1.2 10 3/mcL Normal 0.9-4.3 [facility] MA[facility] Comment on above: Performed By: #### A DIFF, ANEU, BMP, CBC, GFR #### [address] [address] Lymphocytes/100 WBC (Bld) 19.0 % Low 20.0-40.0 [facility] MAIN Comment on above: Performed By: #### A DIFF, ANEU, BMP, CBC, GFR #### [address] [address] Monocyte, Absolute 0.9 10 3/mcL Normal 0.1-1.4 [facility] MAIN Comment on above: Performed By: #### A DIFF, ANEU, BMP, CBC, GFR #### [address] [address] Monocytes/100 WBC (Bld) 14.1 % High 2.0-13.0 [facility] MAIN Comment on above: Performed By: #### A DIFF, ANEU, BMP, CBC, GFR #### [address] [address] Neutrophils/100 WBC (Bld) 64.6 % Normal 50.0-75.0 [facility] MAIN Comment on above: Performed By: #### A DIFF, ANEU, BMP, CBC, GFR #### [address] [address] Basophil, Absolute 0.0 10 3/mcL Normal 0.0-0.3 [facility] MAIN Comment on above: Performed By: #### A DIFF, ANEU, BMP, CBC, GFR #### [address] [address] Basophils/100 WBC (Bld) 0.4 % Normal 0.0-2.5 [facility] MAIN Comment on above: Performed By: #### A DIFF, ANEU, BMP, CBC, GFR #### [address] [address] Eosinophil, Absolute 0.1 10 3/mcL Normal 0.0-0.7 [facility] MAIN Comment on above: Performed By: #### A DIFF, ANEU, BMP, CBC, GFR #### [address] [address] Eosinophils/100 WBC (Bld) 1.2 % Normal 0.0-6.0 [facility] MAIN Comment on above: Performed By: #### A DIFF, ANEU, BMP, CBC, GFR #### [address] [address] Lymphocyte, Absolute 0.7 10 3/mcL Low 0.9-4.3 [facility] MAIN Comment on above: Performed By: #### A DIFF, ANEU, BMP, CBC, GFR #### [address] [address] Lymphocytes/100 WBC (Bld) 16.1 % Low 20.0-40.0 [facility] MAIN Comment on above: Performed By: #### A DIFF, ANEU, BMP, CBC, GFR #### [address] [address] Monocyte, Absolute 0.5 10 3/mcL Normal 0.1-1.4 [facility] MAIN Comment on above: Performed By: #### A DIFF, ANEU, BMP, CBC, GFR #### [address] [address] Monocytes/100 WBC (Bld) 11.8 % Normal 2.0-13.0 [facility] MAIN Comment on above: Performed By: #### A DIFF, ANEU, BMP, CBC, GFR #### [address] [address] Neutrophils/100 WBC (Bld) 70.5 % Normal 50.0-75.0 [facility] MAIN Comment on above: Performed By: #### A DIFF, ANEU, BMP, CBC, GFR #### [address] [address] .GFRon 10-18-2024 Estimated Glomerular Filtration Rate 112 ml/min/1.73sqm Normal [facility] MAIN Comment on above: Result Comment: [...] A DIFF, ANEU, BMP, CBC, GFR #### [address] [address] Estimated Glomerular Filtration Rate 114 ml/min/1.73sqm [facility] MAIN Comment on above: Result Comment: [...] A DIFF, ANEU, BMP, CBC, GFR #### [address] [address] .NEUABSon 10-18-2024 Neutrophil, Absolute 3.9 10 3/mcL Normal 2.3-8.1 [facility] MAIN Comment on above: Performed By: #### A DIFF, ANEU, BMP, CBC, GFR #### [address] [address] Neutrophil, Absolute 3.3 10 3/mcL Normal 2.3-8.1 [facility] Comment on above: Performed By: #### A DIFF, ANEU, BMP, CBC, GFR #### [address] [address] BMPon 10-18-2024 BUN/Creatinine Ratio 9.0 ratio Low 10.0-22.0 [facility] MAIN Comment on above: Performed By: #### A DIFF, ANEU, BMP, CBC, GFR #### [address] [address] Calcium [Mass/Vol] 8.7 mg/dL Normal 8.7-10.4 [facility] MAIN Comment on above: Performed By: #### A DIFF, ANEU, BMP, CBC, GFR #### [address] [address] Chloride [Moles/Vol] 99 mmol/L Normal 98-110 [facility] MAIN Comment on above: Performed By: #### A DIFF, ANEU, BMP, CBC, GFR #### [address] [address] CO2 [Moles/Vol] 33 mmol/L High 22-32 [facility] MAIN Comment on above: Performed By: #### A DIFF, ANEU, BMP, CBC, GFR #### [address] [address] Creatinine [Mass/Vol] 0.67 mg/dL Normal 0.60-1.40 [facility] MAIN Comment on above: Result Comment: Test ing performed on Evgen analyzer using enzymatic creatinine methodology. Performed By: #### A DIFF, ANEU, BMP, CBC, GFR #### [address] [address] Electrolyte Balance 5.0 mEq/L Normal 4.0-15.0 [facility] MAIN Comment on above: Performed By: #### A DIFF, ANEU, BMP, CBC, GFR #### [address] [address] Glucose [Mass/Vol] 115 mg/dL High 70-110 [facility] MAIN Comment on above: Performed By: #### A DIFF, ANEU, BMP, CBC, GFR #### [place] [id number] Potassium [Moles/Vol] 3.4 mmol/L Low 3.5-5.0 [facility] MAIN Comment on above: Performed By: #### A DIFF, ANEU, BMP, CBC, GFR #### [address] [address] Sodium [Moles/Vol] 137 mmol/L Normal 136-145 [facility] MAIN Comment on above: Performed By: #### A DIFF, ANEU, BMP, CBC, GFR #### [address] [address] Urea nitrogen [Mass/Vol] 6.0 mg/dL Low 8.0-22.0 [facility] MAIN Comment on above: Performed By: #### A DIFF, ANEU, BMP, CBC, GFR #### [address] [address] BUN/Creatinine Ratio Unable to Calculate Normal 10.0-2 2.0 [facility] MAIN Comment on above: Order Comment: Pleas e draw daily labs at 3 AM for 3 days Result Comment: Unab le to calculate this test result accurately. Results used to calculate this test are outside the reportable range. Performed By: #### A DIFF, ANEU, BMP, CBC, GFR #### [address] [address] Urea nitrogen [Mass/Vol] mg/dL Low 8.0-22.0 [facility] MAIN Comment on above: Order Comment: Pleas e draw daily labs at 3 AM for 3 days Performed By: #### A DIFF, ANEU, BMP, CBC, GFR #### [address] [address] Calcium [Mass/Vol] 9.2 mg/dL Normal 8.7-10.4 [facility] MAIN Comment on above: Order Comment: Pleas e draw daily labs at 3 AM for 3 days Performed By: #### A DIFF, ANEU, BMP, CBC, GFR #### [address] [address] Chloride [Moles/Vol] 101 mmol/L Normal 98-110 [facility] MAIN Comment on above: Order Comment: Pleas e draw daily labs at 3 AM for 3 days Performed By: #### A DIFF, ANEU, BMP, CBC, GFR #### [address] [address] CO2 [Moles/Vol] 33 mmol/L High 22-32 [facility] MAIN Comment on above: Order Comment: Pleas e draw daily labs at 3 AM for 3 days Performed By: #### A DIFF, ANEU, BMP, CBC, GFR #### [address] [address] Creatinine [Mass/Vol] 0.63 mg/dL Normal 0.60-1.40 [facility] MAIN Comment on above: Order Comment: Pleas e draw daily labs at 3 AM for 3 days Result Comment: Test ing performed on Evgen analyzer using enzymatic creatinine methodology. Performed By: #### A DIFF, ANEU, BMP, CBC, GFR #### [place] [address] Electrolyte Balance 5.0 mEq/L Normal 4.0-15.0 [facility] MAIN Comment on above: Order Comment: Pleas e draw daily labs at 3 AM for 3 days Performed By: #### A DIFF, ANEU, BMP, CBC, GFR #### [place] [id number] Glucose [Mass/Vol] 110 mg/dL Normal 70-110 [facility] MAIN Comment on above: Order Comment: Pleas e draw daily labs at 3 AM for 3 days Performed By: #### A DIFF, ANEU, BMP, CBC, GFR #### [address] [address] Potassium [Moles/Vol] 3.6 mmol/L Normal 3.5-5.0 [facility] MAIN Comment on above: Order Comment: Pleas e draw daily labs at 3 AM for 3 days Performed By: #### A DIFF, ANEU, BMP, CBC, GFR #### [address] [address] Sodium [Moles/Vol] 139 mmol/L Normal 136-145 [facility] MAIN Comment on above: Order Comment: Pleas e draw daily labs at 3 AM for 3 days Performed By: #### A DIFF, ANEU, BMP, CBC, GFR #### [address] [address] CBCon 10-18-2024 Erythrocyte distribution width (RBC) [Ratio] 17.3 % High 11.5-15.5 [facility] MAIN Comment on above: Performed By: #### A DIFF, ANEU, BMP, CBC, GFR #### [place] [address] Hematocrit (Bld) [Volume fraction] 41.4 % Normal 40.0-52.0 [facility] MAIN Comment on above: Performed By: #### A DIFF, ANEU, BMP, CBC, GFR #### [place] [address] Hgb 13.5 G/dL Normal 13.0-17.5 [facility] MAIN Comment on above: Performed By: #### A DIFF, ANEU, BMP, CBC, GFR #### [place] [address] MCH (RBC) [Entitic mass] 28.9 pg Normal 27.0-33.0 [facility] MAIN Comment on above: Performed By: #### A DIFF, ANEU, BMP, CBC, GFR #### [place] [address] MCHC 32.7 G/dL Normal 32.0-36.0 [facility] MAIN Comment on above: Performed By: #### A DIFF, ANEU, BMP, CBC, GFR #### [place] [id number] MCV (RBC) [Entitic vol] 88.4 fL Normal 81.0-100.0 [facility] MAIN Comment on above: Performed By: #### A DIFF, ANEU, BMP, CBC, GFR #### [place] [id number] Platelet 158 10 3/mcL Normal 150-450 [facility] MAIN Comment on above: Performed By: #### A DIFF, ANEU, BMP, CBC, GFR #### [place] [id number] Platelet mean volume (Bld) [Entitic vol] 7.9 fL Normal 6.4-10.5 [facility] MAIN Comment on above: Performed By: #### A DIFF, ANEU, BMP, CBC, GFR #### [place] [id number] RBC 4.68 10 6/mcL Normal 4.50-6.00 [facility] MAIN Comment on above: Performed By: #### A DIFF, ANEU, BMP, CBC, GFR #### [place] [id number] WBC 6.1 10 3/mcL Normal 4.5-10.8 [facility] MAIN Comment on above: Performed By: #### A DIFF, ANEU, BMP, CBC, GFR #### [place] [address] Erythrocyte distribution width (RBC) [Ratio] 16.9 % High 11.5-15.5 [facility] MAIN Comment on above: Order Comment: Colle ct blood every day at 3 AM for the next 3 days. Performed By: #### A DIFF, ANEU, BMP, CBC, GFR #### [place] [address] Hematocrit (Bld) [Volume fraction] 41.4 % Normal 40.0-52.0 [facility] MAIN Comment on above: Order Comment: Colle ct blood every day at 3 AM for the next 3 days. Performed By: #### A DIFF, ANEU, BMP, CBC, GFR #### [place] [address] Hgb 13.6 G/dL Normal 13.0-17.5 [facility] MAIN Comment on above: Order Comment: Colle ct blood every day at 3 AM for the next 3 days. Performed By: #### A DIFF, ANEU, BMP, CBC, GFR #### [place] [address] MCH (RBC) [Entitic mass] 29.0 pg Normal 27.0-33.0 [facility] MAIN Comment on above: Order Comment: Colle ct blood every day at 3 AM for the next 3 days. Performed By: #### A DIFF, ANEU, BMP, CBC, GFR #### [place] [address] MCHC 32.8 G/dL Normal 32.0-36.0 [facility] MAIN Comment on above: Order Comment: Colle ct blood every day at 3 AM for the next 3 days. Performed By: #### A DIFF, ANEU, BMP, CBC, GFR #### [place] [address] MCV (RBC) [Entitic vol] 88.3 fL Normal 81.0-100.0 [facility] MAIN Comment on above: Order Comment: Colle ct blood every day at 3 AM for the next 3 days. Performed By: #### A DIFF, ANEU, BMP, CBC, GFR #### [place] [address] Platelet 127 10 3/mcL Low 150-450 [facility] MAIN Comment on above: Order Comment: Colle ct blood every day at 3 AM for the next 3 days. Performed By: #### A DIFF, ANEU, BMP, CBC, GFR #### [place] [address] Platelet mean volume (Bld) [Entitic vol] 7.7 fL Normal 6.4-10.5 [facility] MAIN Comment on above: Order Comment: Colle ct blood every day at 3 AM for the next 3 days. Performed By: #### A DIFF, ANEU, BMP, CBC, GFR #### [place] [address] RBC 4.70 10 6/mcL Normal 4.50-6.00 [facility] MAIN Comment on above: Order Comment: Colle ct blood every day at 3 AM for the next 3 days. Performed By: #### A DIFF, ANEU, BMP, CBC, GFR #### [place] [address] WBC 4.6 10 3/mcL Normal 4.5-10.8 [facility] MAIN Comment on above: Order Comment: Colle ct blood every day at 3 AM for the next 3 days. Performed By: #### A DIFF, ANEU, BMP, CBC, GFR #### [place] [address] LABORATORYOrdered By: SYSTEM SYSTEM on 10-18-2024 Basophils [...] above: Interpretive Data: T esting performed on Evgen analyzer using enzymatic creatinine methodology. Electrolyte Balance [...] Basophil, Absolute 0.0 10 3/mcL Normal 0.0-0.3 [facility] Comment on above: Performed By: #### A DIFF, ANEU, BMP, CBC, GFR #### [address] [address] Basophils/100 WBC (Bld) 0.6 % Normal 0.0-2.5 [facility] MA[facility] Comment on above: Performed By: #### A DIFF, ANEU, BMP, CBC, GFR #### [address] [address] Eosinophil, Absolute 0.1 10 3/mcL Normal 0.0-0.7 [facility] Comment on above: Performed By: #### A DIFF, ANEU, BMP, CBC, GFR #### [address] [address] Eosinophils/100 WBC (Bld) 1.1 % Normal 0.0-6.0 [facility] Comment on above: Performed By: #### A DIFF, ANEU, BMP, CBC, GFR #### [address] [address] Lymphocyte, Absolute 0.9 10 3/mcL Normal 0.9-4.3 [facility] Comment on above: Performed By: #### A DIFF, ANEU, BMP, CBC, GFR #### [address] [address] Lymphocytes/100 WBC (Bld) 17.7 % Low 20.0-40.0 [facility] MAIN Comment on above: Performed By: #### A DIFF, ANEU, BMP, CBC, GFR #### [address] [address] Monocyte, Absolute 0.6 10 3/mcL Normal 0.1-1.4 [facility] MAIN Comment on above: Performed By: #### A DIFF, ANEU, BMP, CBC, GFR #### [address] [address] Monocytes/100 WBC (Bld) 11.1 % Normal 2.0-13.0 [facility] MAIN Comment on above: Performed By: #### A DIFF, ANEU, BMP, CBC, GFR #### [address] [address] Neutrophils/100 WBC (Bld) 69.5 % Normal 50.0-75.0 [facility] MA[facility] Comment on above: Performed By: #### A DIFF, ANEU, BMP, CBC, GFR #### [address] [address] .GFRon 10-17-2024 Estimated Glomerular Filtration Rate 113 ml/min/1.73sqm Normal [facility] MAIN Comment on [...] BC, MG, GFR, ADIFF, BMP, ANEU #### [place] [address] .NEUABSon 10-17-2024 Neutrophil, Absolute 3.7 10 3/mcL Normal 2.3-8.1 [facility] MAIN Comment on above: Performed By: #### A DIFF, ANEU, BMP, CBC, GFR #### [place] [id number] BMPon 10-17-2024 BUN/Creatinine Ratio 7.7 ratio Low 10.0-22.0 [facility] Comment on above: Performed By: #### A DIFF, ANEU, BMP, CBC, GFR #### [address] [address] Calcium [Mass/Vol] 8.5 mg/dL Low 8.7-10.4 [facility]IN Comment on above: Performed By: #### A DIFF, ANEU, BMP, CBC, GFR #### [place] [id number] Chloride [Moles/Vol] 101 mmol/L Normal 98-110 [facility] Comment on above: Performed By: #### A DIFF, ANEU, BMP, CBC, GFR #### [address] [address] CO2 [Moles/Vol] 31 mmol/L Normal 22-32 [facility] MAIN Comment on above: Performed By: #### A DIFF, ANEU, BMP, CBC, GFR #### [address] [address] Creatinine [Mass/Vol] 0.65 mg/dL Normal 0.60-1.40 [facility] MAIN Comment on above: Result Comment: Test ing performed on Evgen analyzer using enzymatic creatinine methodology. Performed By: #### A DIFF, ANEU, BMP, CBC, GFR #### [address] [address] Electrolyte Balance 7.0 mEq/L Normal 4.0-15.0 [facility] MAIN Comment on above: Performed By: #### A DIFF, ANEU, BMP, CBC, GFR #### [address] [address] Glucose [Mass/Vol] 120 mg/dL High 70-110 [facility] MAIN Comment on above: Performed By: #### A DIFF, ANEU, BMP, CBC, GFR #### [address] [address] Potassium [Moles/Vol] 3.3 mmol/L Low 3.5-5.0 [facility] Comment on above: Performed By: #### A DIFF, ANEU, BMP, CBC, GFR #### [address] [address] Sodium [Moles/Vol] 139 mmol/L Normal 136-145 [facility] MA[facility] Comment on above: Performed By: #### A DIFF, ANEU, BMP, CBC, GFR #### [address] [address] Urea nitrogen [Mass/Vol] 5.0 mg/dL Low 8.0-22.0 [facility] MAIN Comment on above: Performed By: #### A DIFF, ANEU, BMP, CBC, GFR #### [address] [address] CBCon 10-17-2024 Erythrocyte distribution width (RBC) [Ratio] 17.0 % High 11.5-15.5 [facility] MAIN Comment on above: Performed By: #### A DIFF, ANEU, BMP, CBC, GFR #### [place] [address] Hematocrit (Bld) [Volume fraction] 40.3 % Normal 40.0-52.0 [facility] MA[facility] Comment on above: Performed By: #### A DIFF, ANEU, BMP, CBC, GFR #### [place] [address] Hgb 13.2 G/dL Normal 13.0-17.5 [facility] MAIN Comment on above: Performed By: #### A DIFF, ANEU, BMP, CBC, GFR #### [place] [id number] MCH (RBC) [Entitic mass] 28.6 pg Normal 27.0-33.0 [facility] MA[facility] Comment on above: Performed By: #### A DIFF, ANEU, BMP, CBC, GFR #### [place] [address] MCHC 32.6 G/dL Normal 32.0-36.0 [facility] MA[facility] Comment on above: Performed By: #### A DIFF, ANEU, BMP, CBC, GFR #### [place] [address] MCV (RBC) [Entitic vol] 87.6 fL Normal 81.0-100.0 [facility] MA[facility] Comment on above: Performed By: #### A DIFF, ANEU, BMP, CBC, GFR #### [place] [address] Platelet 132 10 3/mcL Low 150-450 [facility] MAIN Comment on above: Performed By: #### A DIFF, ANEU, BMP, CBC, GFR #### [place] [address] Platelet mean volume (Bld) [Entitic vol] 7.8 fL Normal 6.4-10.5 [facility] Comment on above: Performed By: #### A DIFF, ANEU, BMP, CBC, GFR #### [place] [address] RBC 4.60 10 6/mcL Normal 4.50-6.00 [facility] MA[facility] Comment on above: Performed By: #### A DIFF, ANEU, BMP, CBC, GFR #### [facility] [address] [place] [address] WBC 5.4 10 3/mcL Normal 4.5-10.8 [facility] MAIN Comment on above: Performed By: #### A DIFF, ANEU, BMP, CBC, GFR #### [facility] [address] [place] [address] ANKLE W/O CONTRAST RIGHTo n 10-17-2024 [...] spanning external fixator, multiplanar 10/17. transfer from [facility]. for right ankle fracture with [...] 10/17/2024 1:17:29 PM Ordering Provider: SUZE MISHRA [facility] MAIN LABORATORYOrdered By: SYSTEM SYSTEM on 10-17-2024 PT Coag (PPP) [Time] 13.7 s Normal 9.0 - 1 4.4 seconds [facility] above: Interpretive Data: E ffective 12/11/07, Protime results may be affected by some antibiotics (i.e. Ciprofloxacin, Azithromycin, Bactrim) which may potentiate the action of oral anticoagulants, with further increases in Protime/INR. PT International Ratio 1.2 ratio Invalid Interpretation Code Lala Comment on above: Interpretive Data: Baljinder linn [employer] (CHEST, 1991, 102:312S-25S) recommended therapeutic range for oral anticoagulant therapy is: LOW RISK: Prophylaxis of venous thrombosis INR: 2.0-3.0 Treatment of pulmonary embolism 2.0-3.0 Prevention of systemic embolism 2.0-3.0 HIGH RISK: Mechanical prosthetic valves 2.5-3.5 PROon 10-17-2024 INR Coag (PPP) [Relative time] 1.2 {INR} [facility] MAIN Comment on above: Result Comment: [employer] (CHEST, 1991, 102:312S-25S) recommended therapeutic range for oral anticoagulant therapy is: LOW RISK: Prophylaxis of venous thrombosis INR: 2.0-3.0 Treatment of pulmonary embolism 2.0-3.0 Prevention of systemic embolism 2.0-3.0 HIGH RISK: Mechanical prosthetic valves 2.5-3.5 Performed By: #### C BC, MG, GFR, ADIFF, BMP, ANEU #### [place] [address] PT Coag (PPP) [Time] 13.7 s Normal 9.0-14.4 [facility] MAIN Comment on above: Result Comment: Effe ctive 12/11/07, Protime results may be affected by some antibiotics (i.e. Ciprofloxacin, Azithromycin, Bactrim) which may potentiate the action of oral anticoagulants, with further increases in Protime/INR. Performed By: #### C BC, MG, GFR, ADIFF, BMP, ANEU #### [address] [address] XR FLUORO 1-2 HRS TECH TIMEo n [...] Intraoperative fluoroscopic images. Please refer to the gaming table operator's report for further information. I have personally reviewed the images of this examination and agree with the resident's findings and interpretation. Interpreted by: Beau Wahl Preliminary Report By: Nadya Hudson Electronically signed By Beau Wahl Dictated Date: 10/17/2024 1:42:02 PM Prelim Date: 10/17/2024 2:15:08 PM Sign Date: 10/17/2024 2:15:08 PM Ordering Provider: NANI Kate [facility] .Auto Diffon 10-16-2024 Basophil, Absolute 0.1 10 3/mcL Normal 0.0-0.3 [facility] MAIN Comment on above: Performed By: #### C BC, MG, GFR, ADIFF, BMP, ANEU #### [address] [address] Basophils/100 WBC (Bld) 0.8 % Normal 0.0-2.5 [facility] MAIN Comment on above: Performed By: #### C BC, MG, GFR, ADIFF, BMP, ANEU #### [address] [address] Eosinophil, Absolute 0.1 10 3/mcL Normal 0.0-0.7 [facility] MAIN Comment on above: Performed By: #### C BC, MG, GFR, ADIFF, BMP, ANEU #### [address] [address] Eosinophils/100 WBC (Bld) 1.2 % Normal 0.0-6.0 [facility] MAIN Comment on above: Performed By: #### C BC, MG, GFR, ADIFF, BMP, ANEU #### [address] [address] Lymphocyte, Absolute 1.4 10 3/mcL Normal 0.9-4.3 [facility] MAIN Comment on above: Performed By: #### C BC, MG, GFR, ADIFF, BMP, ANEU #### [address] [address] Lymphocytes/100 WBC (Bld) 19.8 % Low 20.0-40.0 [facility] MAIN Comment on above: Performed By: #### C BC, MG, GFR, ADIFF, BMP, ANEU #### [address] [address] Monocyte, Absolute 0.7 10 3/mcL Normal 0.1-1.4 [facility] MAIN Comment on above: Performed By: #### C BC, MG, GFR, ADIFF, BMP, ANEU #### [address] [address] Monocytes/100 WBC (Bld) 10.7 % Normal 2.0-13.0 [facility] MAIN Comment on above: Performed By: #### C BC, MG, GFR, ADIFF, BMP, ANEU #### [address] [address] Neutrophils/100 WBC (Bld) 67.5 % Normal 50.0-75.0 [facility] MAIN Comment on above: Performed By: #### C BC, MG, GFR, ADIFF, BMP, ANEU #### [address] [address] Basophil, Absolute 0.0 10 3/mcL Normal 0.0-0.3 [facility] MAIN Comment on above: Performed By: #### A DIFF, ANEU, BMP, CBC, GFR #### [address] [address] Basophils/100 WBC (Bld) 0.7 % Normal 0.0-2.5 [facility] MAIN Comment on above: Performed By: #### A DIFF, ANEU, BMP, CBC, GFR #### [address] [address] Eosinophil, Absolute 0.1 10 3/mcL Normal 0.0-0.7 [facility] MAIN Comment on above: Performed By: #### A DIFF, ANEU, BMP, CBC, GFR #### [address] [address] Eosinophils/100 WBC (Bld) 0.8 % Normal 0.0-6.0 [facility] MAIN Comment on above: Performed By: #### A DIFF, ANEU, BMP, CBC, GFR #### [address] [address] Lymphocyte, Absolute 1.1 10 3/mcL Normal 0.9-4.3 [facility] MAIN Comment on above: Performed By: #### A DIFF, ANEU, BMP, CBC, GFR #### [address] [address] Lymphocytes/100 WBC (Bld) 17.2 % Low 20.0-40.0 [facility] MAIN Comment on above: Performed By: #### A DIFF, ANEU, BMP, CBC, GFR #### [address] [address] Monocyte, Absolute 0.6 10 3/mcL Normal 0.1-1.4 [facility] MAIN Comment on above: Performed By: #### A DIFF, ANEU, BMP, CBC, GFR #### [address] [address] Monocytes/100 WBC (Bld) 8.7 % Normal 2.0-13.0 [facility] MAIN Comment on above: Performed By: #### A DIFF, ANEU, BMP, CBC, GFR #### [address] [address] Neutrophils/100 WBC (Bld) 72.6 % Normal 50.0-75.0 [facility] MAIN Comment on above: Performed By: #### A DIFF, ANEU, BMP, CBC, GFR #### [address] [address] .GFRon 10-16-2024 Estimated Glomerular Filtration Rate 110 ml/min/1.73sqm Normal [facility] MAIN Comment on above: Result Comment: [...] BC, MG, GFR, ADIFF, BMP, ANEU #### [address] [address] Estimated Glomerular Filtration Rate 111 ml/min/1.73sqm [facility] MAIN Comment on above: Result Comment: [...] A DIFF, ANEU, BMP, CBC, GFR #### [address] [address] .MDWon 10-16-2024 Monocyte Distribution Width 19.45 Normal 0.00-20.00 [facility] MAIN Comment on above: Result Comment: For ED adult patients suspected of sepsis, MDW<=20.0 does not rule out sepsis or risk of sepsis Performed By: #### A DIFF, ANEU, BMP, CBC, GFR #### [address] [address] Monocyte Distribution Width 17.52 Normal 0.00-20.00 [facility] MAIN Comment on above: Result Comment: For ED adult patients suspected of sepsis, MDW<=20.0 does not rule out sepsis or risk of sepsis Performed By: #### A DIFF, ANEU, BMP, CBC, GFR #### [address] [address] .NEUABSon 10-16-2024 Neutrophil, Absolute 4.7 10 3/mcL Normal 2.3-8.1 [facility] MAIN Comment on above: Performed By: #### A DIFF, ANEU, BMP, CBC, GFR #### [place] [address] Neutrophil, Absolute 4.7 10 3/mcL Normal 2.3-8.1 [facility] MAIN Comment on above: Performed By: #### A DIFF, ANEU, BMP, CBC, GFR #### [place] [address] ABO/Rh (Gel)on 10-16-2024 ABO/Rh Interp Positive Invalid Interpretation Code [facility] MAIN Comment on above: Performed By: #### C BC, MG, GFR, ADIFF, BMP, ANEU #### [place] [id number] ABS (Gel)on 10-16-2024 ABSC Interp (Gel) Negative Normal [facility] MAIN Comment on above: Performed By: #### C BC, MG, GFR, ADIFF, BMP, ANEU #### [place] [id number] Stefanie 10-16-2024 Ethanol Level <10.0 Normal [facility] MAIN Comment on above: Performed By: #### A DIFF, ANEU, BMP, CBC, GFR #### [place] [address] ANKLE COMPLETE RTon 10-17-19 25 ANKLE COMPLETE RT [place] [address] Patient: CARLOS ALBERTO HOROWITZ Phone#: : [phone] Age: 54 Gender: M Pt. Type: ER Account: [id number] Location: 05 Ordering: JAKE MAXWELL Exam Date: 10/16/2024/13:23 Family Phys: Charge Code: 016028 Physician: Nash Order #: [id number] Dose#: PROCEDURE: X-RAY ANKLE COMPLETE RT MIN [...] Bagley MD on 10/16/2024 at 14:15 [facility]/Creatinine Ratio 15.9 ratio Normal 10.0-22.0 [facility] MAIN Comment on above: Performed By: #### A DIFF, ANEU, BMP, CBC, GFR #### [address] [address] Calcium [Mass/Vol] 9.4 mg/dL Normal 8.7-10.4 [facility] MAIN Comment on above: Performed By: #### A DIFF, ANEU, BMP, CBC, GFR #### [address] [address] Chloride [Moles/Vol] 103 mmol/L Normal 98-110 [facility] MAIN Comment on above: Performed By: #### A DIFF, ANEU, BMP, CBC, GFR #### [address] [address] CO2 [Moles/Vol] 32 mmol/L Normal 22-32 [facility] MAIN Comment on above: Performed By: #### A DIFF, ANEU, BMP, CBC, GFR #### [address] [address] Creatinine [Mass/Vol] 0.69 mg/dL Normal 0.60-1.40 [facility] MAIN Comment on above: Result Comment: Test ing performed on Evgen analyzer using enzymatic creatinine methodology. Performed By: #### A DIFF, ANEU, BMP, CBC, GFR #### [address] [address] Electrolyte Balance 5.0 mEq/L Normal 4.0-15.0 [facility] MAIN Comment on above: Performed By: #### A DIFF, ANEU, BMP, CBC, GFR #### [address] [address] Glucose [Mass/Vol] 94 mg/dL Normal 70-110 [facility] MAIN Comment on above: Performed By: #### A DIFF, ANEU, BMP, CBC, GFR #### [address] [address] Potassium [Moles/Vol] 3.6 mmol/L Normal 3.5-5.0 [facility] MAIN Comment on above: Performed By: #### A DIFF, ANEU, BMP, CBC, GFR #### [address] [address] Sodium [Moles/Vol] 140 mmol/L Normal 136-145 [facility] MAIN Comment on above: Performed By: #### A DIFF, ANEU, BMP, CBC, GFR #### [address] [address] Urea nitrogen [Mass/Vol] 11.0 mg/dL Normal 8.0-22.0 [facility] MAIN Comment on above: Performed By: #### A DIFF, ANEU, BMP, CBC, GFR #### [address] [address] CBCon 10-16-2024 Erythrocyte distribution width (RBC) [Ratio] 16.5 % High 11.5-15.5 [facility] MAIN Comment on above: Performed By: #### C BC, MG, GFR, ADIFF, BMP, ANEU #### [place] [address] Hematocrit (Bld) [Volume fraction] 45.2 % Normal 40.0-52.0 [facility] MAIN Comment on above: Performed By: #### C BC, MG, GFR, ADIFF, BMP, ANEU #### [place] [address] Hgb 14.8 G/dL Normal 13.0-17.5 [facility] MAIN Comment on above: Performed By: #### C BC, MG, GFR, ADIFF, BMP, ANEU #### [place] [address] MCH (RBC) [Entitic mass] 28.8 pg Normal 27.0-33.0 [facility] MAIN Comment on above: Performed By: #### C BC, MG, GFR, ADIFF, BMP, ANEU #### [place] [address] MCHC 32.8 G/dL Normal 32.0-36.0 [facility] MAIN Comment on above: Performed By: #### C BC, MG, GFR, ADIFF, BMP, ANEU #### [place] [address] MCV (RBC) [Entitic vol] 87.8 fL Normal 81.0-100.0 [facility] MAIN Comment on above: Performed By: #### C BC, MG, GFR, ADIFF, BMP, ANEU #### [place] [address] Platelet 172 10 3/mcL Normal 150-450 [facility] MAIN Comment on above: Performed By: #### C BC, MG, GFR, ADIFF, BMP, ANEU #### [place] [address] Platelet mean volume (Bld) [Entitic vol] 7.9 fL Normal 6.4-10.5 [facility] MAIN Comment on above: Performed By: #### C BC, MG, GFR, ADIFF, BMP, ANEU #### [place] [address] RBC 5.14 10 6/mcL Normal 4.50-6.00 [facility] MAIN Comment on above: Performed By: #### C BC, MG, GFR, ADIFF, BMP, ANEU #### [place] [address] WBC 6.9 10 3/mcL Normal 4.5-10.8 [facility] MAIN Comment on above: Performed By: #### C BC, MG, GFR, ADIFF, BMP, ANEU #### [place] [address] Erythrocyte distribution width (RBC) [Ratio] 17.1 % High 11.5-15.5 [facility] MAIN Comment on above: Performed By: #### A DIFF, ANEU, BMP, CBC, GFR #### [place] [address] Hematocrit (Bld) [Volume fraction] 43.2 % Normal 40.0-52.0 [facility] MAIN Comment on above: Performed By: #### A DIFF, ANEU, BMP, CBC, GFR #### [place] [address] Hgb 14.3 G/dL Normal 13.0-17.5 [facility] MAIN Comment on above: Performed By: #### A DIFF, ANEU, BMP, CBC, GFR #### [place] [address] MCH (RBC) [Entitic mass] 28.9 pg Normal 27.0-33.0 [facility] MAIN Comment on above: Performed By: #### A DIFF, ANEU, BMP, CBC, GFR #### [place] [address] MCHC 33.0 G/dL Normal 32.0-36.0 [facility] MAIN Comment on above: Performed By: #### A DIFF, ANEU, BMP, CBC, GFR #### [place] [address] MCV (RBC) [Entitic vol] 87.4 fL Normal 81.0-100.0 [facility] MAIN Comment on above: Performed By: #### A DIFF, ANEU, BMP, CBC, GFR #### [place] [address] Platelet 152 10 3/mcL Normal 150-450 [facility] MAIN Comment on above: Performed By: #### A DIFF, ANEU, BMP, CBC, GFR #### [place] [address] Platelet mean volume (Bld) [Entitic vol] 7.7 fL Normal 6.4-10.5 [facility]IN Comment on above: Performed By: #### A DIFF, ANEU, BMP, CBC, GFR #### [place] [address] RBC 4.94 10 6/mcL Normal 4.50-6.00 [facility] MAIN Comment on above: Performed By: #### A DIFF, ANEU, BMP, CBC, GFR #### [place] [address] WBC 6.5 10 3/mcL Normal 4.5-10.8 [facility] MAIN Comment on above: Performed By: #### A DIFF, ANEU, BMP, CBC, GFR #### [place] [address] CBC + DIFFon 10-16-2024 Baso # 0.01 x10EE3/UL Normal 0.00 - 0.10 [facility] Comment on above: Performed By: #### 2 [address]95 #### [facility],[address] [place] [address] Basophils/100 WBC (Bld) 0.2 % Normal 0.0 - 2.0 [facility] Comment on above: Performed By: #### 2 96334 #### [facility],[address] [place] [address] CBC + DIFF Normal [facility] Comment on above: Result Comment: CBC- COMPLETE BLOOD COUNT Performed By: #### 2 52928 #### [facility],[address] [place] [address] EO # 0.04 x10EE3/UL Normal 0.00 - 0.50 [facility] Comment on above: Performed By: #### 2 37473 #### [facility],[address] [place] [address] Eosinophils/100 WBC (Bld) 0.7 % Normal 0.0 - 7.[address] [facility] Comment on above: Performed By: #### 2 76883 #### [facility],[address] [place] [address] Erythrocyte distribution width (RBC) [Ratio] 15.2 % Normal 12.0 - 15.[address] [facility] Comment on above: Performed By: #### 2 19562 #### [facility],[address] [place] [address] Hematocrit (Bld) [Volume fraction] 44.1 % Normal 40.0 - 52.[address] [facility] Comment on above: Performed By: #### 2 39492 #### [facility],[address] [place] [address] Hemoglobin (Bld) [Mass/Vol] 15.4 g/dL Normal 13.0 - 17.[address] [facility] Comment on above: Performed By: #### 2 13517 #### [facility],[address] [place] [address] Lymph # 0.96 x10EE3/UL Normal 0.80 - 2.80 [facility] Comment on above: Performed By: #### 2 72159 #### [facility],[address] [place], [place] [id number] Lymphocytes/100 WBC (Bld) 17.1 % Low 20.0 - 45.[address] [facility] Comment on above: Performed By: #### 2 26456 #### [facility],[address] [place] [address] MANUAL DIFF N/A Normal [facility] Comment on above: Performed By: #### 2 74653 #### [facility],[address] [place] [address] MCH (RBC) [Entitic mass] 31 pg Normal 27 - [address] [facility] Comment on above: Performed By: #### 2 67899 #### [facility],[address] [place] [address] MCHC 35 X10 3 Normal 32 - [address] [facility] Comment on above: Performed By: #### 2 38240 #### [facility],[address] [place], [place] [id number] MCV (RBC) [Entitic vol] 88 fL Normal 81 - 98 [facility] Comment on above: Performed By: #### 2 19338 #### [facility],[address] [place] [address] [place] # 0.47 x10EE3/UL Normal 0.20 - 1.00 [facility] Comment on above: Performed By: #### 2 60085 #### [facility],[address] [place] [address] MONOS % 8.4 % Normal 0.0 - 10.[address] [facility] Comment on above: Performed By: #### 2 18430 #### [facility],[address] [place], [place] [id number] Morphology Rocky (Bld) [Interp] N/A Normal [facility] Comment on above: Performed By: #### 2 07157 #### [facility],[address] [place] [address] Neut # 4.12 x10EE3/UL Normal 1.50 - 7.10 [facility] Comment on above: Performed By: #### 2 65038 #### [facility],[address] [place], [place] [id number] Neutrophils/100 WBC (Bld) 73.6 % Normal 46.0 - 76.[address] [facility] Comment on above: Performed By: #### 2 38986 #### [facility],[address] [place] [address] PLATELET 148 x10EE3/UL Low 150 - 450 [facility] Comment on above: Performed By: #### 2 13144 #### [facility],[address] [place], [place] [id number] Platelet mean volume (Bld) [Entitic vol] 8.1 fL Normal 6.4 - 10.5 [facility] Comment on above: Result Comment: AUTO MATED DIFFERENTIAL Performed By: #### 2 06308 #### [facility],[address] [place], [place] [id number] RBC 5.02 x 10EE6/UL Normal 4.50 - 6.00 [facility] Comment on above: Performed By: #### 2 70491 #### [facility],[address] [place], [place] [id number] WBC 5.6 x 10EE3/UL Normal 4.5 - 10.8 [facility] Comment on above: Performed By: #### 2 09877 #### [facility],[address] [place], [place] [id number] CMPon 10-16-2024 Albumin Level 3.6 G/dL Normal 3.2-4.8 [facility] Comment on above: Performed By: #### C BC, MG, GFR, ADIFF, BMP, ANEU #### [address] [address] Albumin/Globulin [Mass ratio] 1.0 {ratio} Normal 0.9-1.6 [facility] Comment on above: Performed By: #### C BC, MG, GFR, ADIFF, BMP, ANEU #### [address] [address] ALP [Catalytic activity/Vol] 70 U/L Normal 38-126 [facility] Comment on above: Performed By: #### C BC, MG, GFR, ADIFF, BMP, ANEU #### [address] [address] ALT [Catalytic activity/Vol] 12 U/L Normal 12-55 [facility] Comment on above: Performed By: #### C BC, MG, GFR, ADIFF, BMP, ANEU #### [address] [address] AST [Catalytic activity/Vol] 17 U/L Normal 8-34 [facility] Comment on above: Performed By: #### C BC, MG, GFR, ADIFF, BMP, ANEU #### [place] [address] Bili Total 0.60 mg/dL Normal 0.20-1.20 [facility] Comment on above: Result Comment: Use of this assay is not recommended for patients undergoing treatment with eltrombopag due to the potential for falsely elevated results. Performed By: #### C BC, MG, GFR, ADIFF, BMP, ANEU #### [place] [address] BUN/Creatinine Ratio 14.1 ratio Normal 10.0-22.0 [facility] Comment on above: Performed By: #### C BC, MG, GFR, ADIFF, BMP, ANEU #### [place] [address] Calcium [Mass/Vol] 9.0 mg/dL Normal 8.7-10.4 [facility] Comment on above: Performed By: #### C BC, MG, GFR, ADIFF, BMP, ANEU #### [place] [address] Chloride [Moles/Vol] 102 mmol/L Normal 98-110 [facility] Comment on above: Performed By: #### C BC, MG, GFR, ADIFF, BMP, ANEU #### [place] [address] CO2 [Moles/Vol] 33 mmol/L High 22-32 [facility] Comment on above: Performed By: #### C BC, MG, GFR, ADIFF, BMP, ANEU #### [place] [address] Creatinine [Mass/Vol] 0.71 mg/dL Normal 0.60-1.40 [facility] Comment on above: Result Comment: Test ing performed on Evgen analyzer using enzymatic creatinine methodology. Performed By: #### C BC, MG, GFR, ADIFF, BMP, ANEU #### [place] [address] Electrolyte Balance 4.0 mEq/L Normal 4.0-15.0 [facility] Comment on above: Performed By: #### C BC, MG, GFR, ADIFF, BMP, ANEU #### [address] [address] Globulin 3.5 G/dL Normal 2.5-4.2 [facility] Comment on above: Performed By: #### C BC, MG, GFR, ADIFF, BMP, ANEU #### [place] [id number] Glucose [Mass/Vol] 109 mg/dL Normal 70-110 [facility] Comment on above: Performed By: #### C BC, MG, GFR, ADIFF, BMP, ANEU #### [place] [address] Potassium [Moles/Vol] 3.7 mmol/L Normal 3.5-5.0 [facility] Comment on above: Performed By: #### C BC, MG, GFR, ADIFF, BMP, ANEU #### [place] [id number] Sodium [Moles/Vol] 139 mmol/L Normal 136-145 [facility] Comment on above: Performed By: #### C BC, MG, GFR, ADIFF, BMP, ANEU #### [place] [address] Total Protein 7.1 G/dL Normal 5.7-8.2 [facility] Comment on above: Performed By: #### C BC, MG, GFR, ADIFF, BMP, ANEU #### [address] [address] Urea nitrogen [Mass/Vol] 10.0 mg/dL Normal 8.0-22.0 [facility] Comment on above: Performed By: #### C BC, MG, GFR, ADIFF, BMP, ANEU #### [address] [address] CMP with eGFRon 10-16-2024 AGE 54 years Normal [facility] Comment on above: Performed By: #### 2 16046 ####[facility],[address] [place] [address] Albumin [Mass/Vol] 3.4 g/dL Normal 3.4 - 5.0 [facility] Comment on above: Performed By: #### 2 93672 ####[facility],[address] [place] [address] Albumin/Globulin [Mass ratio] 0.9 {ratio} Normal 0.9 - 1.[address] [facility] Comment on above: Performed By: #### 2 52118 ####[facility],[address] [place] [address] ALK PHOS 76 U/L Normal 46 - [address] [facility] Comment on above: Performed By: #### 2 64210 ####[facility],[address] [place] [address] ALT [Catalytic activity/Vol] 17 U/L Normal 16 - [address] [facility] Comment on above: Performed By: #### 2 43637 ####[facility],[address] [place] [address] Anion gap [Moles/Vol] 11 mmol/L Normal 10 - 20 [facility] Comment on above: Performed By: #### 2 18192 ####[facility],[address] [place] [address] AST [Catalytic activity/Vol] 17 U/L Normal 15 - [address] [facility] Comment on above: Performed By: #### 2 04341 ####[facility],[address] [place] [address] B/C RATIO 13 ratio Normal 0 - [address] [facility] Comment on above: Performed By: #### 2 58852 ####[facility],[address] [place] [address] Bilirubin [Mass/Vol] 0.5 mg/dL Normal 0.2 - 1.[address] [facility] Comment on above: Performed By: #### 2 65949 ####[facility],[address] [place] [address] Calcium [Mass/Vol] 8.9 mg/dL Normal 8.5 - 10.1 [facility] Comment on above: Performed By: #### 2 00839 ####[facility],[address] [place] [address] Chloride [Moles/Vol] 101 mmol/L Normal 98 - [address] [facility] Comment on above: Performed By: #### 2 33076 ####[facility],[address] [place] [address] CMP with eGFR Normal [facility] Comment on above: Result Comment: COMP REHENSIVE METABOLIC PANEL Performed By: #### 2 10065 ####[facility],[address] [place] [address] CO2 [Moles/Vol] 30.7 mmol/L Normal 21.0 - 32.0 [facility] Comment on above: Performed By: #### 2 63640 ####[facility],[address] [place] [address] Creatinine [Mass/Vol] 0.96 mg/dL Normal 0.70 - 1.30 [facility] Comment on above: Performed By: #### 2 15305 ####[facility],[address] [place] [address] GFR/1.73 sq M.predicted among non-blacks MDRD (S/P/Bld) [Vol rate/Area] mL/min/{1.73_m2} Normal 60 - [address] [facility] Comment on above: Performed By: #### 2 70752 ####[facility],[address] [place] [address] Result Comment: ACCO RDING TO THE NATIONAL KIDNEY DISEASE EDUCATION PROGRAM(NKDE), A NORMAL eGFR IS A VALUE GREATER THAN OR EQUAL TO 60 ML/MIN/1.73 SQ METERS. CHRONIC KIDNEY DISEASE: <60mL/MIN/1.73 SQ METERS KIDNEY FAILURE: <15mL/MIN/1.73 SQ METERS THIS TEST SHOULD ONLY BE USED FOR PATIENTS 18 YEARS OF AGE AND OLDER. Globulin (S) [Mass/Vol] 3.7 g/dL Normal 1.5 - 3.8 [facility] Comment on above: Performed By: #### 2 11891 ####[address] [address] Glucose [Mass/Vol] 94 mg/dL Normal 74 - 106 [facility] Comment on above: Performed By: #### 2 21700 ####[facility] [place] [facility],[address] [place] [address] Potassium [Moles/Vol] 3.6 mmol/L Normal 3.5 - 5.1 [facility] Comment on above: Performed By: #### 2 79135 ####[address] [address] Protein [Mass/Vol] 7.1 g/dL Normal 6.4 - 8.2 [facility] Comment on above: Performed By: #### 2 49848 ####[address] [address] Sodium [Moles/Vol] 139 mmol/L Normal 136 - 145 [facility] Comment on above: Performed By: #### 2 08982 ####[address] [address] Urea nitrogen [Mass/Vol] 12 mg/dL Normal 7 - [address] [facility] Comment on above: Performed By: #### 2 80538 ####[address] [address] ED MED ADMINISTRATION DETAIL on 10-16-2024 ED MED ADMINISTRATION DETAIL Dev Manager Medication Administration Record [address] [address] [id number] 10/16/2024 Patient: CARLOS ALBERTO HOROWITZ Sex: Male : 1970 Age: 54y MEASUREMENTS: Wt: 140.2 kg, Ht/Wilson: 69.0 in, BMI: 45.63 ALLERGIES: Obxtlcn-GEI-QqD Reductase Inhibitors Medication Ordered Medication Administration Date/Time [...] R.N. 1 of [address] [facility] ED NURSES CLINICAL NOTEon ED NURSES CLINICAL NOTE Nurse Narrative Nurse Clinical Narrative [address] [place] [address] [id number] 10/16/2024 12:34:00 Patient: CARLOS ALBERTO HOROWITZ Sex: Male : 1970 Age: 54y Disposition: Transfer to [facility] Disposition Decision Time: 14:27 10/16/2024 Departure [...] had swelling, redness and trouble walking. Treatment MUSIC COPYIST: Ice. SEPSIS SCREEN: NEGATIVE. SIRS criteria negative. No possible sources of infection. -- 12:47 10/16/24 EDT Silvina Maguire R.N. 12:47 10/16/24. BP: 171/95 MAP: 120. HR: 93. RR: 18. O2 saturation: 93% Temperature: 98.9 F. Pain level now 03/07. -- 12:47 10/16/24 T Silvina Maguire R.N. Measurements: 12:45 10/16/24 Wt: 140.2 kg, Ht/Wilson: 69.0 in, BMI: 45.63 -- 12:45 10/16/24 T Silvina Maguire R.N. 1 of 5 Nurse Narrative Medications: omeprazole 40 mg capsule,delayed release -- 12:51 10/16/24 [facility] Silvina Maguire R.N. dofetilide 250 mcg capsule -- 12:10/16/24 T Silvina Maguire R.N. albuterol sulfate 2.5 mg/3 mL (0.083 %) solution for nebulization -- 12:51 10/16/24 [facility] Silvina Maguire R.N. pravastatin 40 mg tablet -- 12:51 10/16/24 [facility] Silvina Maguire R.N. metoprolol succinate ER 100 mg tablet,extended release 24 hr -- 12:51 10/16/24 [facility] Silvina Maguire R.N. spironolactone 25 mg tablet -- 12:51 10/16/24 [facility] Silvina Maguire R.N. trazodone 100 mg tablet -- 12:51 10/16/24 [facility] Silvina Maguire R.N. tizanidine 2 mg tablet -- 12:51 10/16/24 [facility] Silvina Maguire R.N. hydroxyzine pamoate 25 mg capsule -- 12:51 10/16/24 [facility] Silvina Maguire R.N. furosemide 20 mg tablet -- 12:51 10/16/24 [facility] Silvina Maguire R.N. duloxetine 20 mg capsule,delayed release -- 12:51 10/16/24 [facility] Silvina Maguire R.N. budesonide-formoterol HFA 80 [...] 12:51 10/16/24 [facility] Silvina Maguire R.N. Allergies: Mekyezv-HOI-QkT Reductase Inhibitors -- 12:40 10/16/24 [facility] Silvina [...] content not included)... Normal [facility] ED ORDER SHEET (CPOE ONLY)on 10-16-2024 ED ORDER SHEET (CPOE ONLY) Order Sheet Order Sheet [address] [place] [address] [id number] 10/16/2024 Patient: CARLOS ALBERTO HOROWITZ Sex: Male : 1970 Age: 54y MEASUREMENTS: Wt: 140.2 kg, Ht/Wilson: 69.0 in, BMI: 45.63 ALLERGIES: Xczvkql-OKS-YtE Reductase Inhibitors MEDICATION/IV/DRIP/FL UID ORDERS Order Description Priority Entered Acknowledged Completed HYDROmorphone (Dilaudid) 12:56 10/16/2024 12:58 13:14 IVP0.5 mg (NOW x1, HIGH Jake Maxwlel, M.D. 10/16/2024 10/16/2024 ALERT MEDICATION) Destiney Blackman [...] 10/16/2024 Reymundo Carvajal Debra Schrock, R.N. R.NEverett DIAGNOSTIC STUDY ORDERS Order Description Priority Entered [...] Blackman R.N. REverettNEverett Reason for Study: Trauma/Injury STAFF ORDERS Order Description Priority Entered Acknowledged Collected Completed IV Saline Lock 12:56 10/16/2024 12:58 10/16/2024 14:19 10/16/2024 Reymundo Carvajal Debra Schrock, R.N. R.N. [Electronically signed by Jake Maxwell M.D. (10/16/2024 15:16 EDT)] 2 of 3 Order Sheet [Electronically signed by Jake Maxwell M.D. (10/16/2024 15:18 EDT)] 3 of [address] [facility] ED PHYSICIAN CLINICAL REPORT on 10-16-2024 ED PHYSICIAN CLINICAL REPORT Narrative Physician Clinical Narrative [address] [place] [address] [id number] 10/16/2024 12:34:00 Patient: CARLOS ALBERTO HOROWITZ Sex: Male : 1970 Age: 54y Disposition: Transfer to [facility] Disposition Decision Time: 14:27 10/16/2024 Measurements [...] pen injector Xarelto 20 mg tablet Allergies: Bpsljmh-QCP-OfE Reductase Inhibitors SOCIAL HISTORY Does not use [...] content not included)... Normal [facility] ED [facility] 10-16-2024 ED [facility] [address] [place] [address] [id number] 10/16/2024 Patient: CARLOS ALBERTO HOROWITZ Sex: Male : 1970 Age: 54y Facility Professional Category Item Description Code Code Quantity Fee Total Nurse/E/M EMERGENCY 777057 1 $0.00 $0.00 DEPT VISIT HIGH SEVERITYFUNCJ (00059-07) Nurse/IV/IM/Infusions IVP initial (65177) 400887 1 $0.00 $0.00 Grand $0.00 Total Providers Reymundo Carvajal M.D. Chief Complaint Injury to right foot and right ankle. Principal Diagnosis Closed displaced, severely angulated right bimalleolar fracture. 1 of 2 [facility] ICD-10 Codes S82.841A: Displaced bimalleolar fracture of right lower leg, initial encounter for closed fracture 2 of [address] [facility] ED VISIT SUMMARYon ED VISIT SUMMARY Visit Overview Visit Overview [address] [address] [id number] 10/16/2024 Patient: CARLOS ALBERTO HOROWITZ Sex: Male : 1970 Age: 54y 10/16/2024 07:42 PM EDT ED Arrival:12:34 10/16/2024 EDT Status: Recent Travel:no Language:eng Adv Directive:No Isolation Status: Ethnicity:N Fall Risk:risk Infectious Disease Exposure:no Measurements:5'9" / 175.3 Self-Harm Status:risk Sepsis Screen:negative cm 309.0 lb / 140.2 kg Chief Complaint:RIGHT LOWER EXTREMITY PAIN, RIGHT LOWER EXTREMITY REDNESS, and RIGHT LOWER EXTREMITY SWELLING ALLERGIES Imlxoir-STZ-HdW Reductase Inhibitors HOME MEDICATIONS albuterol sulfate 2.5 [...] FRACTURE 4 of [address] [facility] ED VITALS FLOW SHEETon 10-16 ED VITALS FLOW SHEET Vitals Vital Sign Flow Sheet [address] [place] [address] [id number] 10/16/2024 Patient: CARLOS ALBERTO HOROWITZ Sex: Male [...] 10 2 of [address] [facility] FOOT COMPLETE RTon FOOT COMPLETE RT [place] [address] Patient: CARLOS ALBERTO HOROWITZ Phone#: : 1970 Age: 54 Gender: M Pt. Type: ER Account: [id number] Location: 052 Ordering: JAKE MAXWELL Exam Date: 10/16/2024/13:00 Family Phys: Charge Code: 632207 Physician: Nash Order #: [id number] Dose#: PROCEDURE: X-RAY FOOT RT COMPLETE MIN [...] on 10/16/2024 at 14:[address] [facility] LABORATORYOrdered By: SYSTEM SYSTEM on 10-16-2024 [...] mmol/L Normal 0.4 - 2.[address] [facility] Comment on above: Performed By: #### 2 34814 #### [facility],[address] [place] [address] NT-proBNPon 10-16-2024 Natriuretic peptide B (Bld) [Mass/Vol] 291 pg/mL High 0 - [address] [facility] Comment on above: Performed By: #### 2 10186 #### [facility],[address] [place], [place] [id number] PROTHROMBIN TIME AND INRon 0 10-16-2024 INR Coag (PPP) [Relative time] 1.4 {INR} High 0.8 - 1.[address] [facility] Comment on above: Result Comment: T [...] MECHANICAL HEART VALVES Performed By: #### 2 87429 ####[facility],[address] [place] [address] PROTHROMBIN TIME AND INR Normal [facility] Comment on above: Result Comment: PROT HROMBIN TIME AND INR Performed By: #### 2 60108 ####[facility],[address] [place] [address] PT-COUMADIN 15.9 sec High 9.3 - 14.[address] [facility] Comment on above: Performed By: #### 2 35493 ####[facility],[address] [place] [address] TIBIA-FIBULA RTon 10-16-2024 TIBIA-FIBULA RT [address] [address] Patient: CARLOS ALBERTO HOROWITZ Phone#: : 1970 Age: 54 Gender: M Pt. Type: ER Account: [id number] Location: [facility] Ordering: JAKE MAXWELL Exam Date: 10/16/2024/13:23 Family Phys: Charge Code: 668872 Physician: Nash Order #: [id number] Dose#: PROCEDURE: X-RAY TIB FIB RT 2 [...] Bagley MD on 10/16/2024 at 14:[address] [facility] XR ANKLE MINIMUM 3 VIEWS LEF [...] Sign Date: 10/16/2024 10:39:42 PM Ordering Provider: [facility] MAIN XR ANKLE MINIMUM 3 VIEWS [...] Sign Date: 10/16/2024 9:20:54 PM Ordering Provider: [facility] MAIN XR ANKLE MINIMUM 3 VIEWS [...] 10/16/2024 7:53:07 PM Ordering Provider: EMJOANNE GARCIA [facility] XR ANKLE MINIMUM 3 VIEWS RIGHT [...] 10/16/2024 6:28:12 PM Ordering Provider: EM GARCIA [facility] .Auto Diffon 10-04-2024 Basophil, Absolute 0.0 10 3/mcL Normal 0.0-0.3 [facility] Comment on above: Performed By: #### C BC, MG, GFR, ADIFF, BMP, ANEU #### [address] [address] Basophils/100 WBC (Bld) 0.9 % Normal 0.0-2.5 [facility] Comment on above: Performed By: #### C BC, MG, GFR, ADIFF, BMP, ANEU #### [address] [address] Eosinophil, Absolute 0.1 10 3/mcL Normal 0.0-0.7 [facility] Comment on above: Performed By: #### C BC, MG, GFR, ADIFF, BMP, ANEU #### [address] [address] Eosinophils/100 WBC (Bld) 1.9 % Normal 0.0-6.0 [facility] Comment on above: Performed By: #### C BC, MG, GFR, ADIFF, BMP, ANEU #### [address] [address] Lymphocyte, Absolute 1.0 10 3/mcL Normal 0.9-4.3 [facility] Comment on above: Performed By: #### C BC, MG, GFR, ADIFF, BMP, ANEU #### [address] [address] Lymphocytes/100 WBC (Bld) 24.9 % Normal 20.0-40.0 [facility] Comment on above: Performed By: #### C BC, MG, GFR, ADIFF, BMP, ANEU #### [address] [address] Monocyte, Absolute 0.3 10 3/mcL Normal 0.1-1.4 [facility] Comment on above: Performed By: #### C BC, MG, GFR, ADIFF, BMP, ANEU #### [address] [address] Monocytes/100 WBC (Bld) 7.5 % Normal 2.0-13.0 [facility] Comment on above: Performed By: #### C BC, MG, GFR, ADIFF, BMP, ANEU #### [address] [address] Neutrophils/100 WBC (Bld) 64.8 % Normal 50.0-75.0 [facility] Comment on above: Performed By: #### C BC, MG, GFR, ADIFF, BMP, ANEU #### [place] [id number] .GFRon 10-04-2024 Estimated Glomerular Filtration Rate 107 ml/min/1.73sqm Normal [facility] Comment on [...] BC, MG, GFR, ADIFF, BMP, ANEU #### [place] [address] .NEUABSon 10-04-2024 Neutrophil, Absolute 2.5 10 3/mcL Normal 2.3-8.1 [facility] Comment on above: Performed By: #### C BC, MG, GFR, ADIFF, BMP, ANEU #### [place] [address] BMPon 10-04-2024 BUN/Creatinine Ratio 6.5 ratio Low 10.0-22.0 [facility] Comment on above: Performed By: #### C BC, MG, GFR, ADIFF, BMP, ANEU #### [place] [address] Calcium [Mass/Vol] 8.5 mg/dL Low 8.7-10.4 [facility] Comment on above: Performed By: #### C BC, MG, GFR, ADIFF, BMP, ANEU #### [place] [address] Chloride [Moles/Vol] 102 mmol/L Normal 98-110 [facility] Comment on above: Performed By: #### C BC, MG, GFR, ADIFF, BMP, ANEU #### [address] [address] CO2 [Moles/Vol] 31 mmol/L Normal 22-32 [facility] Comment on above: Performed By: #### C BC, MG, GFR, ADIFF, BMP, ANEU #### [address] [address] Creatinine [Mass/Vol] 0.77 mg/dL Normal 0.60-1.40 [facility] Comment on above: Result Comment: Test ing performed on Evgen analyzer using enzymatic creatinine methodology. Performed By: #### C BC, MG, GFR, ADIFF, BMP, ANEU #### [address] [address] Electrolyte Balance 6.0 mEq/L Normal 4.0-15.0 [facility] Comment on above: Performed By: #### C BC, MG, GFR, ADIFF, BMP, ANEU #### [address] [address] Glucose [Mass/Vol] 108 mg/dL Normal 70-110 [facility] Comment on above: Performed By: #### C BC, MG, GFR, ADIFF, BMP, ANEU #### [address] [address] Potassium [Moles/Vol] 3.5 mmol/L Normal 3.5-5.0 [facility] Comment on above: Performed By: #### C BC, MG, GFR, ADIFF, BMP, ANEU #### [address] [address] Sodium [Moles/Vol] 139 mmol/L Normal 136-145 [facility] Comment on above: Performed By: #### C BC, MG, GFR, ADIFF, BMP, ANEU #### [address] [address] Urea nitrogen [Mass/Vol] 5.0 mg/dL Low 8.0-22.0 [facility] Comment on above: Performed By: #### C BC, MG, GFR, ADIFF, BMP, ANEU #### [address] [address] CBCon 10-04-2024 Erythrocyte distribution width (RBC) [Ratio] 17.1 % High 11.5-15.5 [facility] Comment on above: Performed By: #### C BC, MG, GFR, ADIFF, BMP, ANEU #### [place] [address] Hematocrit (Bld) [Volume fraction] 42.5 % Normal 40.0-52.0 [facility] Comment on above: Performed By: #### C BC, MG, GFR, ADIFF, BMP, ANEU #### [place] [address] Hgb 13.8 G/dL Normal 13.0-17.5 [facility] Comment on above: Performed By: #### C BC, MG, GFR, ADIFF, BMP, ANEU #### [place] [address] MCH (RBC) [Entitic mass] 28.4 pg Normal 27.0-33.0 [facility] Comment on above: Performed By: #### C BC, MG, GFR, ADIFF, BMP, ANEU #### [place] [address] MCHC 32.6 G/dL Normal 32.0-36.0 [facility] Comment on above: Performed By: #### C BC, MG, GFR, ADIFF, BMP, ANEU #### [place] [address] MCV (RBC) [Entitic vol] 87.2 fL Normal 81.0-100.0 [facility] Comment on above: Performed By: #### C BC, MG, GFR, ADIFF, BMP, ANEU #### [place] [address] Platelet 120 10 3/mcL Low 150-450 [facility] Comment on above: Performed By: #### C BC, MG, GFR, ADIFF, BMP, ANEU #### [place] [address] Platelet mean volume (Bld) [Entitic vol] 7.4 fL Normal 6.4-10.5 [facility] Comment on above: Performed By: #### C BC, MG, GFR, ADIFF, BMP, ANEU #### [place] [address] RBC 4.87 10 6/mcL Normal 4.50-6.00 [facility] Comment on above: Performed By: #### C BC, MG, GFR, ADIFF, BMP, ANEU #### [place] [address] WBC 3.8 10 3/mcL Low 4.5-10.8 [facility] Comment on above: Performed By: #### C BC, MG, GFR, ADIFF, BMP, ANEU #### [address] [address] LABORATORYOrdered By: Adenike Swain on 10-04-2024 Blood Glucose Testing Reason Routine (10/04/24 7:18 AM) [facility] Glucose [Mass/Vol] 100 mg/dL Normal 70 - 110 mg/dL [facility] LABORATORYOrdered By: SYSTEM SYSTEM on 10-04-2024 [...] above: Interpretive Data: T esting performed on Evgen analyzer using enzymatic creatinine methodology. Electrolyte Balance [...] 107 ml/min/1.73sqm Invalid Interpretation Code [facility] SS Comment on above: Interpretive Data: [...] 0.3 103/mcL Normal 0.1 - 1.4 10^3/mcL Workflow SS Monocytes/100 WBC (Bld) 7.5 % Normal 2.0 - 13.0 % AH Workflow SS Neutrophils (Bld) [#/Vol] 2.5 103/mcL Normal 2.3 - 8.1 10^3/mcL Workflow SS Neutrophils/100 WBC (Bld) 64.8 % [...] 10-04-2024 Magnesium [Mass/Vol] 1.9 mg/dL Normal 1.6-2.4 [facility] Comment on above: Performed By: #### C BC, MG, GFR, ADIFF, BMP, ANEU #### [address] [address] .Auto Diffon 10-03-2024 Basophil, Absolute 0.0 10 3/mcL Normal 0.0-0.3 [facility] Comment on above: Performed By: #### C BC, MG, GFR, ADIFF, BMP, ANEU #### [address] [address] Basophils/100 WBC (Bld) 0.9 % Normal 0.0-2.5 [facility] Comment on above: Performed By: #### C BC, MG, GFR, ADIFF, BMP, ANEU #### [address] [address] Eosinophil, Absolute 0.1 10 3/mcL Normal 0.0-0.7 [facility] Comment on above: Performed By: #### C BC, MG, GFR, ADIFF, BMP, ANEU #### [address] [address] Eosinophils/100 WBC (Bld) 2.0 % Normal 0.0-6.0 [facility] Comment on above: Performed By: #### C BC, MG, GFR, ADIFF, BMP, ANEU #### [address] [address] Lymphocyte, Absolute 0.9 10 3/mcL Normal 0.9-4.3 [facility] Comment on above: Performed By: #### C BC, MG, GFR, ADIFF, BMP, ANEU #### [address] [address] Lymphocytes/100 WBC (Bld) 21.1 % Normal 20.0-40.0 [facility] Comment on above: Performed By: #### C BC, MG, GFR, ADIFF, BMP, ANEU #### [address] [address] Monocyte, Absolute 0.3 10 3/mcL Normal 0.1-1.4 [facility] MAIN Comment on above: Performed By: #### C BC, MG, GFR, ADIFF, BMP, ANEU #### [address] [address] Monocytes/100 WBC (Bld) 7.6 % Normal 2.0-13.0 [facility] MAIN Comment on above: Performed By: #### C BC, MG, GFR, ADIFF, BMP, ANEU #### [address] [address] Neutrophils/100 WBC (Bld) 68.4 % Normal 50.0-75.0 [facility] MAIN Comment on above: Performed By: #### C BC, MG, GFR, ADIFF, BMP, ANEU #### [address] [address] .GFRon 10-03-2024 Estimated Glomerular Filtration Rate 109 ml/min/1.73sqm Normal [facility] MAIN Comment on [...] BC, MG, GFR, ADIFF, BMP, ANEU #### [place] [address] .NEUABSon 10-03-2024 Neutrophil, Absolute 2.8 10 3/mcL Normal 2.3-8.1 [facility]IN Comment on above: Performed By: #### C BC, MG, GFR, ADIFF, BMP, ANEU #### [place] [address] A1Con 10-03-2024 Glucose [Mass/Vol] 114 mg/dL Normal [facility] MAIN Comment on above: Result Comment: Zahida mated Average Glucose calculated by equation ((28.7xA1C)-46.7) Estimated average glucose (eAG) is a calculated value from Hemoglobin A1C and is artist representative of the average blood glucose level in the last 2-3 month period. Normal range: less than 114 mg/dL Performed By: #### C BC, MG, GFR, ADIFF, BMP, ANEU #### [place] [address] HbA1c (Bld) [Mass fraction] 5.6 % Normal 4.0-6.0 [facility] MAIN Comment on above: Performed By: #### C BC, MG, GFR, ADIFF, BMP, ANEU #### [place] [address] CBCon 10-03-2024 Erythrocyte distribution width (RBC) [Ratio] 16.6 % High 11.5-15.5 [facility] MAIN Comment on above: Performed By: #### C BC, MG, GFR, ADIFF, BMP, ANEU #### [place] [address] Hematocrit (Bld) [Volume fraction] 41.1 % Normal 40.0-52.0 [facility] MAIN Comment on above: Performed By: #### C BC, MG, GFR, ADIFF, BMP, ANEU #### [place] [address] Hgb 13.5 G/dL Normal 13.0-17.5 [facility] MAIN Comment on above: Performed By: #### C BC, MG, GFR, ADIFF, BMP, ANEU #### [place] [address] MCH (RBC) [Entitic mass] 28.7 pg Normal 27.0-33.0 [facility] MAIN Comment on above: Performed By: #### C BC, MG, GFR, ADIFF, BMP, ANEU #### [place] [address] MCHC 32.9 G/dL Normal 32.0-36.0 [facility] MAIN Comment on above: Performed By: #### C BC, MG, GFR, ADIFF, BMP, ANEU #### [place] [address] MCV (RBC) [Entitic vol] 87.2 fL Normal 81.0-100.0 [facility] Comment on above: Performed By: #### C BC, MG, GFR, ADIFF, BMP, ANEU #### [place] [address] Platelet 136 10 3/mcL Low 150-450 [facility] MAIN Comment on above: Performed By: #### C BC, MG, GFR, ADIFF, BMP, ANEU #### [place] [address] Platelet mean volume (Bld) [Entitic vol] 7.6 fL Normal 6.4-10.5 [facility] MAIN Comment on above: Performed By: #### C BC, MG, GFR, ADIFF, BMP, ANEU #### [place] [address] RBC 4.72 10 6/mcL Normal 4.50-6.00 [facility] MAIN Comment on above: Performed By: #### C BC, MG, GFR, ADIFF, BMP, ANEU #### [place] [address] WBC 4.2 10 3/mcL Low 4.5-10.8 [facility] MA[facility] Comment on above: Performed By: #### C BC, MG, GFR, ADIFF, BMP, ANEU #### [place] [address] CMPon 10-03-2024 Albumin Level 3.3 G/dL Normal 3.2-4.8 [facility] Comment on above: Performed By: #### C BC, MG, GFR, ADIFF, BMP, ANEU #### [place] [address] Albumin/Globulin [Mass ratio] 1.0 {ratio} Normal 0.9-1.6 [facility] Comment on above: Performed By: #### C BC, MG, GFR, ADIFF, BMP, ANEU #### [place] [address] ALP [Catalytic activity/Vol] 56 U/L Normal 38-126 [facility] MAIN Comment on above: Performed By: #### C BC, MG, GFR, ADIFF, BMP, ANEU #### [place] [address] ALT [Catalytic activity/Vol] 10 U/L Low 12-55 [facility] MAIN Comment on above: Performed By: #### C BC, MG, GFR, ADIFF, BMP, ANEU #### [place] [address] AST [Catalytic activity/Vol] 16 U/L Normal 8-34 [facility]IN Comment on above: Performed By: #### C BC, MG, GFR, ADIFF, BMP, ANEU #### [place] [address] Bili Total 0.60 mg/dL Normal 0.20-1.20 [facility]IN Comment on above: Result Comment: Use of this assay is not recommended for patients undergoing treatment with eltrombopag due to the potential for falsely elevated results. Performed By: #### C BC, MG, GFR, ADIFF, BMP, ANEU #### [place] [address] BUN/Creatinine Ratio 9.6 ratio Low 10.0-22.0 [facility] Comment on above: Performed By: #### C BC, MG, GFR, ADIFF, BMP, ANEU #### [place] [id number] Calcium [Mass/Vol] 8.4 mg/dL Low 8.7-10.4 [facility] Comment on above: Performed By: #### C BC, MG, GFR, ADIFF, BMP, ANEU #### [place] [address] Chloride [Moles/Vol] 105 mmol/L Normal 98-110 [facility] Comment on above: Performed By: #### C BC, MG, GFR, ADIFF, BMP, ANEU #### [place] [address] CO2 [Moles/Vol] 31 mmol/L Normal 22-32 [facility] Comment on above: Performed By: #### C BC, MG, GFR, ADIFF, BMP, ANEU #### [place] [address] Creatinine [Mass/Vol] 0.73 mg/dL Normal 0.60-1.40 [facility] MAIN Comment on above: Result Comment: Test ing performed on Evgen analyzer using enzymatic creatinine methodology. Performed By: #### C BC, MG, GFR, ADIFF, BMP, ANEU #### [place] [address] Electrolyte Balance 1.0 mEq/L Low 4.0-15.0 [facility]IN Comment on above: Performed By: #### C BC, MG, GFR, ADIFF, BMP, ANEU #### [place] [id number] Globulin 3.2 G/dL Normal 2.5-4.2 [facility] MA[facility] Comment on above: Performed By: #### C BC, MG, GFR, ADIFF, BMP, ANEU #### [address] [address] Glucose [Mass/Vol] 109 mg/dL Normal 70-110 [facility] Comment on above: Performed By: #### C BC, MG, GFR, ADIFF, BMP, ANEU #### [address] [address] Potassium [Moles/Vol] 3.5 mmol/L Normal 3.5-5.0 [facility] MAIN Comment on above: Performed By: #### C BC, MG, GFR, ADIFF, BMP, ANEU #### [address] [address] Sodium [Moles/Vol] 137 mmol/L Normal 136-145 [facility]IN Comment on above: Performed By: #### C BC, MG, GFR, ADIFF, BMP, ANEU #### [address] [address] Total Protein 6.5 G/dL Normal 5.7-8.2 [facility] MAIN Comment on above: Performed By: #### C BC, MG, GFR, ADIFF, BMP, ANEU #### [address] [address] Urea nitrogen [Mass/Vol] 7.0 mg/dL Low 8.0-22.0 [facility] Comment on above: Performed By: #### C BC, MG, GFR, ADIFF, BMP, ANEU #### [address] [address] LABORATORYOrdered By: Jorge Wahl on 10-03-2024 Blood Glucose Testing Reason Routine (10/03/24 4:57 PM) [facility] Glucose [Mass/Vol] 81 mg/dL Normal 70 - 110 mg/dL [facility] LABORATORYOrdered By: Sophie Simental on 10-03-2024 Blood Glucose Testing Reason Routine (10/03/24 11:18 AM) [facility] Glucose [Mass/Vol] 99 mg/dL Normal 70 - 110 mg/dL [facility] LABORATORYOrdered By: SYSTEM SYSTEM on 10-03-2024 [...] above: Interpretive Data: T esting performed on Evgen analyzer using enzymatic creatinine methodology. Electrolyte Balance [...] calculated value from Hemoglobin A1C and is artist representative of the average blood glucose level [...] 3 - 149 mg/dL ADM SS LIPIDon 05-08-2025 Cholesterol [Mass/Vol] 105 mg/dL Normal 50-199 [facility] Comment on above: Result Comment: Chol esterol Reference Interval: Less than 200 Desirable 200-239 Borderline high risk 240 and above High risk Performed By: #### C BC, MG, GFR, ADIFF, BMP, ANEU #### [address] [address] Cholesterol in HDL [Mass/Vol] 17 mg/dL Low 40-59 [facility] MA[facility] Comment on above: Performed By: #### C BC, MG, GFR, ADIFF, BMP, ANEU #### [address] [address] Cholesterol in LDL [Mass/Vol] 58 mg/dL Normal 0-129 [facility] MAIN Comment on above: Performed By: #### C BC, MG, GFR, ADIFF, BMP, ANEU #### [address] [address] Triglyceride [Mass/Vol] 151 mg/dL High 3-149 [facility] Comment on above: Performed By: #### C BC, MG, GFR, ADIFF, BMP, ANEU #### [address] [address] MGon 10-03-2024 Magnesium [Mass/Vol] 2.1 mg/dL Normal 1.6-2.4 [facility] Comment on above: Performed By: #### C BC, MG, GFR, ADIFF, BMP, ANEU #### [address] [address] .Auto Diffon 10-02-2024 Basophil, Absolute 0.0 10 3/mcL Normal 0.0-0.3 [facility] Comment on above: Performed By: #### A DIFF, ANEU, BMP, CBC, GFR #### [address] [address] Basophils/100 WBC (Bld) 0.6 % Normal 0.0-2.5 [facility] MAIN Comment on above: Performed By: #### A DIFF, ANEU, BMP, CBC, GFR #### [place] [id number] Eosinophil, Absolute 0.1 10 3/mcL Normal 0.0-0.7 [facility] Comment on above: Performed By: #### A DIFF, ANEU, BMP, CBC, GFR #### [address] [address] Eosinophils/100 WBC (Bld) 1.0 % Normal 0.0-6.0 [facility] MAIN Comment on above: Performed By: #### A DIFF, ANEU, BMP, CBC, GFR #### [address] [address] Lymphocyte, Absolute 1.2 10 3/mcL Normal 0.9-4.3 [facility] Comment on above: Performed By: #### A DIFF, ANEU, BMP, CBC, GFR #### [address] [address] Lymphocytes/100 WBC (Bld) 18.1 % Low 20.0-40.0 [facility] MAIN Comment on above: Performed By: #### A DIFF, ANEU, BMP, CBC, GFR #### [address] [address] Monocyte, Absolute 0.7 10 3/mcL Normal 0.1-1.4 [facility] Comment on above: Performed By: #### A DIFF, ANEU, BMP, CBC, GFR #### [address] [address] Monocytes/100 WBC (Bld) 10.0 % Normal 2.0-13.0 [facility] Comment on above: Performed By: #### A DIFF, ANEU, BMP, CBC, GFR #### [address] [address] Neutrophils/100 WBC (Bld) 70.3 % Normal 50.0-75.0 [facility] MAIN Comment on above: Performed By: #### A DIFF, ANEU, BMP, CBC, GFR #### [address] [address] Basophil, Absolute 0.1 10 3/mcL Normal 0.0-0.3 [facility] Comment on above: Performed By: #### A ERIC, MDW, BMP, MG, GFR, ADIFF, DIMER, CBC, PBNP, TROPHS #### [address] [address] Basophils/100 WBC (Bld) 0.8 % Normal 0.0-2.5 [facility] Comment on above: Performed By: #### A ERIC, MDW, BMP, MG, GFR, ADIFF, DIMER, CBC, PBNP, TROPHS #### [address] [address] Eosinophil, Absolute 0.1 10 3/mcL Normal 0.0-0.7 [facility] Comment on above: Performed By: #### A ERIC, MDW, BMP, MG, GFR, ADIFF, DIMER, CBC, PBNP, TROPHS #### [address] [address] Eosinophils/100 WBC (Bld) 1.2 % Normal 0.0-6.0 [facility] Comment on above: Performed By: #### A ERIC, MDW, BMP, MG, GFR, ADIFF, DIMER, CBC, PBNP, TROPHS #### [address] [address] Lymphocyte, Absolute 1.4 10 3/mcL Normal 0.9-4.3 [facility] Comment on above: Performed By: #### A ERIC, MDW, BMP, MG, GFR, ADIFF, DIMER, CBC, PBNP, TROPHS #### [address] [address] Lymphocytes/100 WBC (Bld) 13.3 % Low 20.0-40.0 [facility] Comment on above: Performed By: #### A ERIC, MDW, BMP, MG, GFR, ADIFF, DIMER, CBC, PBNP, TROPHS #### [address] [address] Monocyte, Absolute 0.8 10 3/mcL Normal 0.1-1.4 [facility] Comment on above: Performed By: #### A ERIC, MDW, BMP, MG, GFR, ADIFF, DIMER, CBC, PBNP, TROPHS #### [address] [address] Monocytes/100 WBC (Bld) 7.6 % Normal 2.0-13.[address] [facility] Comment on above: Performed By: #### A ELY REYES, BMP, MG, GFR, ADIFF, DIMER, CBC, PBNP, TROPHS #### [facility] [address] [place], [place] [address] Neutrophils/100 WBC (Bld) 77.1 % High 50.0-75.0 [facility] Comment on above: Performed By: #### A ELY REYES, BMP, MG, GFR, ADIFF, DIMER, CBC, PBNP, TROPHS #### [place] [id number] [place], [place] [address] .GFRon 10-02-2024 Estimated Glomerular Filtration Rate 110 ml/min/1.73sqm [facility] MAIN Comment on above: Result Comment: [...] BC, MG, GFR, ADIFF, BMP, ANEU #### [facility] [address] [place] [address] Estimated Glomerular Filtration Rate 104 ml/min/1.73sqm Normal [...] ADIFF, DIMER, CBC, PBNP, TROPHS #### [address] [address] .MDWon 10-02-2024 Monocyte Distribution Width 19.51 Normal 0.00-20.00 [facility] Comment on above: Result Comment: For ED adult patients suspected of sepsis, MDW<=20.0 does not rule out sepsis or risk of sepsis Performed By: #### A ERIC, MDW, BMP, MG, GFR, ADIFF, DIMER, CBC, PBNP, TROPHS #### [address] [address] .NEUABSon 10-02-2024 Neutrophil, Absolute 4.7 10 3/mcL Normal 2.3-8.1 [facility] Comment on above: Performed By: #### A DIFF, ANEU, BMP, CBC, GFR #### [address] [address] Neutrophil, Absolute 8.4 10 3/mcL High 2.3-8.1 [facility] Comment on above: Performed By: #### A ERIC, MDW, BMP, MG, GFR, ADIFF, DIMER, CBC, PBNP, TROPHS #### [address] [address] APTTon 10-02-2024 aPTT Coag (Bld) [Time] 36.5 s High 25.0-35.0 [facility] MAIN Comment on above: Result Comment: For Heparin anticoagulation therapy, the recommended therapeutic range is: 54-77 seconds (APTT Correlation with Anti-Xa therapeutic range of 0.3-0.7 units/ml). PLEASE REFERENCE THE PHARMACY PROTOCOL FOR DOSING. Performed By: #### C BC, MG, GFR, ADIFF, BMP, ANEU #### [address] [address] aPTT Coag (Bld) [Time] 29.3 s Normal 25.0-35.0 [facility] MAIN Comment on above: Result Comment: For Heparin anticoagulation therapy, the recommended therapeutic range is: 54-77 seconds (APTT Correlation with Anti-Xa therapeutic range of 0.3-0.7 units/ml). PLEASE REFERENCE THE PHARMACY PROTOCOL FOR DOSING. Performed By: #### A DIFF, ANEU, BMP, CBC, GFR #### [place] [id number] [place] [id number] [place] [address] 10-02-2024 BUN/Creatinine Ratio 14 ratio Normal 7-27 [facility] Comment on above: Performed By: #### A ELY REYES, BMP, MG, GFR, ADIFF, DIMER, CBC, PBNP, TROPHS #### [address] [address] Calcium [Mass/Vol] 8.9 mg/dL Normal 8.4-10.2 [facility] Comment on above: Performed By: #### A ELY REYES, BMP, MG, GFR, ADIFF, DIMER, CBC, PBNP, TROPHS #### [address] [address] Chloride [Moles/Vol] 101 mmol/L Normal 98-107 [facility] Comment on above: Performed By: #### A ELY REYES, BMP, MG, GFR, ADIFF, DIMER, CBC, PBNP, TROPHS #### [address] [address] CO2 [Moles/Vol] 31 mmol/L High 22-29 [facility] Comment on above: Performed By: #### A ELY REYES, BMP, MG, GFR, ADIFF, DIMER, CBC, PBNP, TROPHS #### [address] [address] Creatinine [Mass/Vol] 0.85 mg/dL Normal 0.67-1.17 [facility] Comment on above: Performed By: #### A ELY REYES, BMP, MG, GFR, ADIFF, DIMER, CBC, PBNP, TROPHS #### [address] [address] Electrolyte Balance 6.0 mEq/L Normal 4.0-15.0 [facility] Comment on above: Performed By: #### A ELY REYES, BMP, MG, GFR, ADIFF, DIMER, CBC, PBNP, TROPHS #### [address] [address] Glucose [Mass/Vol] 157 mg/dL High 70-105 [facility] Comment on above: Performed By: #### A MD ERICW, BMP, MG, GFR, ADIFF, DIMER, CBC, PBNP, TROPHS #### [address] [address] Potassium [Moles/Vol] 3.1 mmol/L Low 3.5-5.1 [facility] Comment on above: Performed By: #### A ELY REYES, BMP, MG, GFR, ADIFF, DIMER, CBC, PBNP, TROPHS #### [address] [address] Sodium [Moles/Vol] 138 mmol/L Normal 136-145 [facility] Comment on above: Performed By: #### A MD ERICW, BMP, MG, GFR, ADIFF, DIMER, CBC, PBNP, TROPHS #### [address] [address] Urea nitrogen [Mass/Vol] 12 mg/dL Normal 7-18 [facility] Comment on above: Performed By: #### A ELY REYES, BMP, MG, GFR, ADIFF, DIMER, CBC, PBNP, TROPHS #### [address] [address] CAIONon 10-02-2024 Calcium Ionized 1.09 mmol/L Low 1.12-1.[address] [facility] Comment on above: Performed By: #### A DIFF, ANEU, BMP, CBC, GFR #### [facility] [address] [place] [address] CBCon 10-02-2024 Erythrocyte distribution width (RBC) [Ratio] 16.6 % High 11.5-15.5 [facility] MAIN Comment on above: Performed By: #### A DIFF, ANEU, BMP, CBC, GFR #### [place] [address] Hematocrit (Bld) [Volume fraction] 47.4 % Normal 40.0-52.0 [facility] MAIN Comment on above: Performed By: #### A DIFF, ANEU, BMP, CBC, GFR #### [place] [address] Hgb 15.6 G/dL Normal 13.0-17.5 [facility]IN Comment on above: Performed By: #### A DIFF, ANEU, BMP, CBC, GFR #### [place] [address] MCH (RBC) [Entitic mass] 28.7 pg Normal 27.0-33.0 [facility]IN Comment on above: Performed By: #### A DIFF, ANEU, BMP, CBC, GFR #### [place] [address] MCHC 32.9 G/dL Normal 32.0-36.0 [facility] Comment on above: Performed By: #### A DIFF, ANEU, BMP, CBC, GFR #### [place] [id number] MCV (RBC) [Entitic vol] 87.2 fL Normal 81.0-100.0 [facility] MAIN Comment on above: Performed By: #### A DIFF, ANEU, BMP, CBC, GFR #### [place] [address] Platelet 139 10 3/mcL Low 150-450 [facility] MAIN Comment on above: Performed By: #### A DIFF, ANEU, BMP, CBC, GFR #### [place] [address] Platelet mean volume (Bld) [Entitic vol] 7.7 fL Normal 6.4-10.5 [facility] Comment on above: Performed By: #### A DIFF, ANEU, BMP, CBC, GFR #### [place] [address] RBC 5.44 10 6/mcL Normal 4.50-6.00 [facility] Comment on above: Performed By: #### A DIFF, ANEU, BMP, CBC, GFR #### [address] [address] WBC 6.6 10 3/mcL Normal 4.5-10.8 [facility] Comment on above: Performed By: #### A DIFF, ANEU, BMP, CBC, GFR #### [address] [address] Erythrocyte distribution width (RBC) [Ratio] 16.6 % High 11.5-15.5 [facility] Comment on above: Performed By: #### A ERIC, MDW, BMP, MG, GFR, ADIFF, DIMER, CBC, PBNP, TROPHS #### [address] [address] Hematocrit (Bld) [Volume fraction] 51.4 % Normal 40.0-52.0 [facility] Comment on above: Performed By: #### A ERIC, MDW, BMP, MG, GFR, ADIFF, DIMER, CBC, PBNP, TROPHS #### [address] [address] Hgb 17.1 G/dL Normal 13.0-17.5 [facility] Comment on above: Performed By: #### A ERIC, MDW, BMP, MG, GFR, ADIFF, DIMER, CBC, PBNP, TROPHS #### [address] [address] MCH (RBC) [Entitic mass] 28.9 pg Normal 27.0-33.0 [facility] Comment on above: Performed By: #### A ERIC, MDW, BMP, MG, GFR, ADIFF, DIMER, CBC, PBNP, TROPHS #### [address] [address] MCHC 33.3 G/dL Normal 32.0-36.0 [facility] Comment on above: Performed By: #### A ERIC, MDW, BMP, MG, GFR, ADIFF, DIMER, CBC, PBNP, TROPHS #### [address] [address] MCV (RBC) [Entitic vol] 86.7 fL Normal 81.0-100.0 [facility] Comment on above: Performed By: #### A ELY REYES, BMP, MG, GFR, ADIFF, DIMER, CBC, PBNP, TROPHS #### [address] [address] Platelet 199 10 3/mcL Normal 150-450 [facility] Comment on above: Performed By: #### A ELY REYES, BMP, MG, GFR, ADIFF, DIMER, CBC, PBNP, TROPHS #### [address] [address] Platelet mean volume (Bld) [Entitic vol] 7.3 fL Normal 6.4-10.5 [facility] Comment on above: Performed By: #### A ELY REYES, BMP, MG, GFR, ADIFF, DIMER, CBC, PBNP, TROPHS #### [address] [address] RBC 5.93 10 6/mcL Normal 4.50-6.00 [facility] Comment on above: Performed By: #### A ELY REYES, BMP, MG, GFR, ADIFF, DIMER, CBC, PBNP, TROPHS #### [address] [address] WBC 10.9 10 3/mcL High 4.5-10.8 [facility] Comment on above: Performed By: #### A ELY REYES, BMP, MG, GFR, ADIFF, DIMER, CBC, PBNP, TROPHS #### [address] [address] CMPon 10-02-2024 Albumin Level 3.2 G/dL Normal 3.2-4.[address] [facility] Comment on above: Performed By: #### C BC, MG, GFR, ADIFF, BMP, ANEU #### [facility] [address] [place] [address] Albumin/Globulin [Mass ratio] 0.9 {ratio} Normal 0.9-1.6 [facility] Comment on above: Performed By: #### C BC, MG, GFR, ADIFF, BMP, ANEU #### [place] [address] ALP [Catalytic activity/Vol] 60 U/L Normal 38-126 [facility] Comment on above: Performed By: #### C BC, MG, GFR, ADIFF, BMP, ANEU #### [place] [address] ALT/SGPT <8 Low 12-55 [facility] Comment on above: Performed By: #### C BC, MG, GFR, ADIFF, BMP, ANEU #### [place] [address] AST [Catalytic activity/Vol] 15 U/L Normal 8-34 [facility] Comment on above: Performed By: #### C BC, MG, GFR, ADIFF, BMP, ANEU #### [place] [address] Bili Total 0.60 mg/dL Normal 0.20-1.20 [facility] Comment on above: Result Comment: Use of this assay is not recommended for patients undergoing treatment with eltrombopag due to the potential for falsely elevated results. Performed By: #### C BC, MG, GFR, ADIFF, BMP, ANEU #### [place] [address] BUN/Creatinine Ratio 15.5 ratio Normal 10.0-22.0 [facility] Comment on above: Performed By: #### C BC, MG, GFR, ADIFF, BMP, ANEU #### [place] [address] Calcium [Mass/Vol] 8.4 mg/dL Low 8.7-10.4 [facility] Comment on above: Performed By: #### C BC, MG, GFR, ADIFF, BMP, ANEU #### [place] [address] Chloride [Moles/Vol] 102 mmol/L Normal 98-110 [facility] Comment on above: Performed By: #### C BC, MG, GFR, ADIFF, BMP, ANEU #### [address] [address] CO2 [Moles/Vol] 25 mmol/L Normal 22-32 [facility] Comment on above: Performed By: #### C BC, MG, GFR, ADIFF, BMP, ANEU #### [address] [address] Creatinine [Mass/Vol] 0.71 mg/dL Normal 0.60-1.40 [facility] Comment on above: Result Comment: Test ing performed on Evgen analyzer using enzymatic creatinine methodology. Performed By: #### C BC, MG, GFR, ADIFF, BMP, ANEU #### [place] [address] Electrolyte Balance 12.0 mEq/L Normal 4.0-15.0 [facility] Comment on above: Performed By: #### C BC, MG, GFR, ADIFF, BMP, ANEU #### [place] [id number] Globulin 3.5 G/dL Normal 2.5-4.2 [facility] Comment on above: Performed By: #### C BC, MG, GFR, ADIFF, BMP, ANEU #### [address] [address] Glucose [Mass/Vol] 109 mg/dL Normal 70-110 [facility] Comment on above: Performed By: #### C BC, MG, GFR, ADIFF, BMP, ANEU #### [place] [id number] Potassium [Moles/Vol] 3.5 mmol/L Normal 3.5-5.0 [facility] Comment on above: Performed By: #### C BC, MG, GFR, ADIFF, BMP, ANEU #### [address] [address] Sodium [Moles/Vol] 139 mmol/L Normal 136-145 [facility] Comment on above: Performed By: #### C BC, MG, GFR, ADIFF, BMP, ANEU #### [address] [place], [place] [address] Total Protein 6.7 G/dL Normal 5.7-8.2 [facility] Comment on above: Performed By: #### C BC, MG, GFR, ADIFF, BMP, ANEU #### [facility] [address] [place] [address] Urea nitrogen [Mass/Vol] 11.0 mg/dL Normal 8.0-22.0 [facility] Comment on above: Performed By: #### C BC, MG, GFR, ADIFF, BMP, ANEU #### [address] [address] LABORATORYOrdered By: SYSTEM SYSTEM on 10-02-2024 aPTT [...] above: Interpretive Data: T esting performed on Evgen analyzer using enzymatic creatinine methodology. Electrolyte Balance [...] Comment on above: Interpretive Data: Baljinder linn [employer] (CHEST, 1992, 102:312S-25S) [...] ng/L Male: 0-54 ng/L Testing performed on Pose.com analyzer using direct chemiluminescent technology. TSH Qn [...] ng/L Male: 0-76 ng/L Testing performed on elastic.io using a homogeneous sandwich chemiluminescent immunoassay based on Webcrunch technology. Basophils (Bld) [#/Vol] 0.1 103/mcL Normal [...] Comment on above: Interpretive Data: Baljinder linn [employer] (CHEST, 1991, 102:312S-25S) [...] ng/L Male: 0-76 ng/L Testing performed on elastic.io using a homogeneous sandwich chemiluminescent immunoassay based on Webcrunch technology. Urea nitrogen [Mass/Vol] 12 mg/dL Normal [...] 10-02-2024 Magnesium [Mass/Vol] 1.8 mg/dL Normal 1.6-2.4 [facility] Comment on above: Performed By: #### C BC, MG, GFR, ADIFF, BMP, ANEU #### [facility] [address] [place] [address] Magnesium [Mass/Vol] 1.7 mg/dL Low 1.8-2.4 [facility] Comment on above: Performed By: #### A ERIC, MDW, BMP, MG, GFR, ADIFF, DIMER, CBC, PBNP, TROPHS #### [place] [address] [place], [place] [address] PBNPon 10-02-2024 Natriuretic peptide B (Bld) [Mass/Vol] 2223 pg/mL High 0-900 [facility] Comment on above: Performed By: #### C BC, MG, GFR, ADIFF, BMP, ANEU #### [place] [id number] [place] [address] Natriuretic peptide B (Bld) [Mass/Vol] 973 pg/mL High 0-125 [facility] Comment on above: Result Comment: NT-p roBNP results of less than 300 pg/mL effectively rules out acute congestive heart failure with 99% negative predictive value. Performed By: #### A ERIC, MDW, BMP, MG, GFR, ADIFF, DIMER, CBC, PBNP, TROPHS #### [address] [address] PHOSon 10-02-2024 Phosphate [Mass/Vol] 2.2 mg/dL Low 2.4-5.1 [facility] Comment on above: Result Comment: No te - New Reference Range in effect 19 Performed By: #### C BC, MG, GFR, ADIFF, BMP, ANEU #### [address] [address] PROon 10-02-2024 INR Coag (PPP) [Relative time] 1.2 {INR} Normal [facility] Comment on above: Result Comment: [employer] (CHEST, 1992, 102:312S-25S) recommended therapeutic range for oral anticoagulant therapy is: LOW RISK: Prophylaxis of venous thrombosis INR: 2.0-3.0 Treatment of pulmonary embolism 2.0-3.0 Prevention of systemic embolism 2.0-3.0 HIGH RISK: Mechanical prosthetic valves 2.5-3.5 Performed By: #### A DIFF, ANEU, BMP, CBC, GFR #### [place] [address] [place] [address] PT Coag (PPP) [Time] 13.4 s Normal 9.0-14.4 [facility] Comment on above: Result Comment: Effe ctive 12/11/07, Protime results may be affected by some antibiotics (i.e. Ciprofloxacin, Azithromycin, Bactrim) which may potentiate the action of oral anticoagulants, with further increases in Protime/INR. Performed By: #### A DIFF, ANEU, BMP, CBC, GFR #### [place] [id number] [place] [address] PT Coag (PPP) [Time] 13.5 s Normal 9.0-14.4 [facility] Comment on above: Performed By: #### A ELY REYES, BMP, MG, GFR, ADIFF, DIMER, CBC, PBNP, TROPHS #### [address] [address] PT International Ratio 1.2 Normal [facility] Comment on above: Result Comment: [employer] (CHEST, 1992, 102:312S-25S) recommended therapeutic range for oral anticoagulant therapy is: LOW RISK: Prophylaxis of venous thrombosis INR: 2.0-3.0 Treatment of pulmonary embolism 2.0-3.0 Prevention of systemic embolism 2.0-3.0 HIGH RISK: Mechanical prosthetic valves 2.5-3.5 Performed By: #### A ELY REYES, JULIÁN, MG, GFR, ADIFF, DIMER, CBC, PBNP, TROPHS #### [address] [address] TROPHSon 10-02-2024 High Sensitivity Troponin I 6 ng/L Normal 0-54 [facility] Comment on above: Result Comment: High Sensitive Troponin I Reference Ranges: Female: 0-34 ng/L Male: 0-54 ng/L Testing performed on Pose.com analyzer using direct chemiluminescent technology. Performed By: #### A DIFF, ANEU, BMP, CBC, GFR #### [address] [address] High Sensitivity Troponin I 9 ng/L Normal 0-76 [facility] Comment on above: Result Comment: High Sensitive Troponin I Reference Ranges: Female: 0-51 ng/L Male: 0-76 ng/L Testing performed on elastic.io using a homogeneous sandwich chemiluminescent immunoassay based on LOCI technology. Performed By: #### A ELY REYES, JULIÁN, MG, GFR, ADIFF, DIMER, CBC, PBNP, TROPHS #### [facility] [address] [place], [place] [address] High Sensitivity Troponin I 9 ng/L Normal 0-76 [facility] Comment on above: Result Comment: High Sensitive Troponin I Reference Ranges: Female: 0-51 ng/L Male: 0-76 ng/L Testing performed on elastic.io using a homogeneous sandwich chemiluminescent immunoassay based on Webcrunch technology. Performed By: #### A ELY REYES, BMP, MG, GFR, ADIFF, DIMER, CBC, PBNP, TROPHS #### [facility] [address] [place], [place] [address] TSHon 10-02-2024 TSH 1.923 mIU/mL Normal 0.550-4.780 [facility] Comment on above: Performed By: #### C BC, MG, GFR, ADIFF, BMP, ANEU #### [facility] [address] [place] [address] XR CHEST 1 VIEWon 10-02-2024 XR CHEST [...] 2:02:33 AM Ordering Provider: DELORES MURO Normal [facility] XR ANKLE MINIMUM 3 VIEWS LEF Ton 04-03-2025 XR ANKLE MINIMUM 3 VIEWS LEFT ORIGINAL [...] Date: 08/29/2024 3:52:38 PM Ordering Provider: EDER Kate [facility] XR CHEST 2 VIEWSon XR CHEST 2 [...] 08/29/2024 4:51:29 PM Ordering Provider: GIRMA Kate [facility] .Auto Diffon 08-13-2024 Basophil, Absolute 0.0 10 3/mcL Normal 0.0-0.2 [facility] Comment on above: Performed By: #### A ERIC, MDW, BMP, MG, GFR, ADIFF, DIMER, CBC, PBNP, TROPHS #### [address] [address] Basophils/100 WBC (Bld) 0.7 % Normal 0.0-2.5 [facility] Comment on above: Performed By: #### A ERIC, MDW, BMP, MG, GFR, ADIFF, DIMER, CBC, PBNP, TROPHS #### [address] [address] Eosinophil, Absolute 0.1 10 3/mcL Normal 0.0-0.7 [facility] Comment on above: Performed By: #### A ERIC, MDW, BMP, MG, GFR, ADIFF, DIMER, CBC, PBNP, TROPHS #### [address] [address] Eosinophils/100 WBC (Bld) 1.3 % Normal 0.0-7.0 [facility] Comment on above: Performed By: #### A ERIC, MDW, BMP, MG, GFR, ADIFF, DIMER, CBC, PBNP, TROPHS #### [address] [address] Lymphocyte, Absolute 0.8 10 3/mcL Low 0.9-4.3 [facility] Comment on above: Performed By: #### A ERIC, MDW, BMP, MG, GFR, ADIFF, DIMER, CBC, PBNP, TROPHS #### [address] [address] Lymphocytes/100 WBC (Bld) 19.9 % Low 20.0-40.0 [facility] Comment on above: Performed By: #### A ERIC, MDW, BMP, MG, GFR, ADIFF, DIMER, CBC, PBNP, TROPHS #### [address] [address] Monocyte, Absolute 0.3 10 3/mcL Normal 0.1-1.4 [facility] Comment on above: Performed By: #### A ELY REYES, BMP, MG, GFR, ADIFF, DIMER, CBC, PBNP, TROPHS #### [address] [address] Monocytes/100 WBC (Bld) 6.9 % Normal 2.0-13.0 [facility] Comment on above: Performed By: #### A ELY REYES, BMP, MG, GFR, ADIFF, DIMER, CBC, PBNP, TROPHS #### [address] [address] Neutrophils/100 WBC (Bld) 71.2 % Normal 50.0-75.0 [facility] Comment on above: Performed By: #### A ELY REYES, BMP, MG, GFR, ADIFF, DIMER, CBC, PBNP, TROPHS #### [address] [address] .GFRon 08-13-2024 Estimated Glomerular Filtration Rate 107 [...] ADIFF, DIMER, CBC, PBNP, TROPHS #### [address] [address] .MDWon 08-13-2024 Monocyte Distribution Width 19.39 Normal 0.00-20.00 [facility] Comment on above: Result Comment: For ED adult patients suspected of sepsis, MDW<=20.0 does not rule out sepsis or risk of sepsis Performed By: #### A ELY REYES, BMP, MG, GFR, ADIFF, DIMER, CBC, PBNP, TROPHS #### [place] [address] .NEUABSon 08-13-2024 Neutrophil, Absolute 2.9 10 3/mcL Normal 2.3-8.1 [facility] Comment on above: Performed By: #### A ELY REYES, BMP, MG, GFR, ADIFF, DIMER, CBC, PBNP, TROPHS #### [place] [address] CBCon 08-13-2024 Erythrocyte distribution width (RBC) [Ratio] 17.1 % High 11.5-15.5 [facility] Comment on above: Performed By: #### A ELY REYES, BMP, MG, GFR, ADIFF, DIMER, CBC, PBNP, TROPHS #### [place] [address] Hematocrit (Bld) [Volume fraction] 42.8 % Normal 40.0-52.0 [facility] Comment on above: Performed By: #### A ELY REYES, BMP, MG, GFR, ADIFF, DIMER, CBC, PBNP, TROPHS #### [place] [address] Hgb 14.0 G/dL Normal 13.0-17.5 [facility] Comment on above: Performed By: #### A ELY REYES, BMP, MG, GFR, ADIFF, DIMER, CBC, PBNP, TROPHS #### [place] [address] MCH (RBC) [Entitic mass] 27.9 pg Normal 27.0-33.0 [facility] Comment on above: Performed By: #### A ELY REYES, BMP, MG, GFR, ADIFF, DIMER, CBC, PBNP, TROPHS #### [address] [address] MCHC 32.8 G/dL Normal 32.0-36.0 [facility] Comment on above: Performed By: #### A ELY REYES, BMP, MG, GFR, ADIFF, DIMER, CBC, PBNP, TROPHS #### [place] [id number] MCV (RBC) [Entitic vol] 84.9 fL Normal 81.0-100.0 [facility] Comment on above: Performed By: #### A ELY REYES, BMP, MG, GFR, ADIFF, DIMER, CBC, PBNP, TROPHS #### [place] [address] Platelet 137 10 3/mcL Low 150-450 [facility] Comment on above: Performed By: #### A ELY REYES, BMP, MG, GFR, ADIFF, DIMER, CBC, PBNP, TROPHS #### [place] [id number] Platelet mean volume (Bld) [Entitic vol] 6.7 fL Normal 6.4-10.5 [facility] Comment on above: Performed By: #### A ELY REYES, BMP, MG, GFR, ADIFF, DIMER, CBC, PBNP, TROPHS #### [place] [id number] RBC 5.04 10 6/mcL Normal 4.50-6.00 [facility] Comment on above: Performed By: #### A ELY REYES, BMP, MG, GFR, ADIFF, DIMER, CBC, PBNP, TROPHS #### [place] [phone] WBC 4.1 10 3/mcL Low 4.5-10.8 [facility] Comment on above: Performed By: #### A ELY REYES, BMP, MG, GFR, ADIFF, DIMER, CBC, PBNP, TROPHS #### [place] [id number] CMPon 08-13-2024 Albumin Level 3.3 G/dL Low 3.5-5.0 [facility] Comment on above: Performed By: #### A ELY REYES, BMP, MG, GFR, ADIFF, DIMER, CBC, PBNP, TROPHS #### [place] [address] Albumin/Globulin [Mass ratio] 0.8 {ratio} Low 1.1-2.5 [facility] Comment on above: Performed By: #### A ELY REYES, BMP, MG, GFR, ADIFF, DIMER, CBC, PBNP, TROPHS #### [place] [address] ALP [Catalytic activity/Vol] 76 U/L Normal 40-135 [facility] Comment on above: Performed By: #### A ELY REYES, JULIÁN, MG, GFR, ADIFF, DIMER, CBC, PBNP, TROPHS #### [place] [id number] ALT [Catalytic activity/Vol] 10 U/L Low 16-63 [facility] Comment on above: Performed By: #### A ELY REYES, BMP, MG, GFR, ADIFF, DIMER, CBC, PBNP, TROPHS #### [place] [address] AST [Catalytic activity/Vol] 14 U/L Normal 10-40 [facility] Comment on above: Performed By: #### A ELY REYES, BMP, MG, GFR, ADIFF, DIMER, CBC, PBNP, TROPHS #### [place] [address] Bili Total 0.4 mg/dL Normal 0.2-1.0 [facility] Comment on above: Result Comment: Use of this assay is not recommended for patients undergoing treatment with eltrombopag due to the potential for falsely elevated results. Performed By: #### A ELY REYES, BMP, MG, GFR, ADIFF, DIMER, CBC, PBNP, TROPHS #### [address] [address] BUN/Creatinine Ratio 13 ratio Normal 7-27 [facility] Comment on above: Performed By: #### A ELY REYES, BMP, MG, GFR, ADIFF, DIMER, CBC, PBNP, TROPHS #### [address] [address] Calcium [Mass/Vol] 8.6 mg/dL Normal 8.4-10.2 [facility] Comment on above: Performed By: #### A ELY REYES, BMP, MG, GFR, ADIFF, DIMER, CBC, PBNP, TROPHS #### [place] [address] Chloride [Moles/Vol] 101 mmol/L Normal 98-107 [facility] Comment on above: Performed By: #### A ELY REYES, BMP, MG, GFR, ADIFF, DIMER, CBC, PBNP, TROPHS #### [place] [address] CO2 [Moles/Vol] 35 mmol/L High 22-29 [facility] Comment on above: Performed By: #### A ELY REYES, BMP, MG, GFR, ADIFF, DIMER, CBC, PBNP, TROPHS #### [address] [address] Creatinine [Mass/Vol] 0.78 mg/dL Normal 0.70-1.30 [facility] Comment on above: Result Comment: Test ing performed on [employer] Dimension EXL analyzer using a modified kinetic Ciera technique. Performed By: #### A ELY REYES, BMP, MG, GFR, ADIFF, DIMER, CBC, PBNP, TROPHS #### [place] [address] Electrolyte Balance 2.0 mEq/L Low 4.0-15.0 [facility] Comment on above: Performed By: #### A ELY REYES, BMP, MG, GFR, ADIFF, DIMER, CBC, PBNP, TROPHS #### [address] [address] Globulin 3.9 G/dL High 1.5-3.8 [facility] Comment on above: Performed By: #### A ELY REYES, BMP, MG, GFR, ADIFF, DIMER, CBC, PBNP, TROPHS #### [address] [address] Glucose [Mass/Vol] 105 mg/dL Normal 70-105 [facility] Comment on above: Performed By: #### A ELY REYES, BMP, MG, GFR, ADIFF, DIMER, CBC, PBNP, TROPHS #### [address] [address] Potassium [Moles/Vol] 3.8 mmol/L Normal 3.5-5.1 [facility] Comment on above: Performed By: #### A ELY REYES, JULIÁN, MG, GFR, ADIFF, DIMER, CBC, PBNP, TROPHS #### [address] [address] Sodium [Moles/Vol] 138 mmol/L Normal 136-145 [facility] Comment on above: Performed By: #### A ELY REYES, JULIÁN, MG, GFR, ADIFF, DIMER, CBC, PBNP, TROPHS #### [address] [address] Total Protein 7.2 G/dL Normal 6.4-8.2 [facility] Comment on above: Performed By: #### A ELY REYES, JULIÁN, MG, GFR, ADIFF, DIMER, CBC, PBNP, TROPHS #### [address] [address] Urea nitrogen [Mass/Vol] 10 mg/dL Normal 7-18 [facility] Comment on above: Performed By: #### A ELY REYES, BMP, MG, GFR, ADIFF, DIMER, CBC, PBNP, TROPHS #### [address] [address] CVFLURVon 08-13-2024 FLU A PCR Negative Normal Negative [facility] Comment on above: Performed By: #### C VFLURV #### [place] [address] FLU B PCR Negative Normal Negative [facility] Comment on above: Performed By: #### C VFLURV #### [place] [address] RSV PCR Negative Normal Negative [facility] Comment on above: Performed By: #### C VFLURV #### [place] [address] SARS-CoV-2 (COVID-19) RNA ROSE+probe Ql (Unsp spec) [...] results. Performed By: #### C VFLURV #### [place] [address] PBNPon 08-13-2024 Natriuretic peptide B (Bld) [Mass/Vol] 456 pg/mL High 0-125 [facility] Comment on above: Result Comment: NT-p roBNP results of less than 300 pg/mL effectively rules out acute congestive heart failure with 99% negative predictive value. Performed By: #### A ERIC, MDW, BMP, MG, GFR, ADIFF, DIMER, CBC, PBNP, TROPHS #### [place] [address] TROPHSon 08-13-2024 High Sensitivity Troponin I 8 ng/L Normal 0-76 [facility] Comment on above: Result Comment: High Sensitive Troponin I Reference Ranges: Female: 0-51 ng/L Male: 0-76 ng/L Testing performed on elastic.io using a homogeneous sandwich chemiluminescent immunoassay based on Webcrunch technology. Performed By: #### A ERIC, MDW, BMP, MG, GFR, ADIFF, DIMER, CBC, PBNP, TROPHS #### [facility] [address] [place], [place] [address] XR CHEST 1 VIEWon 08-13-2024 XR CHEST [...] 08/13/2024 11:55:14 AM Ordering Provider: WILNER JOE [facility] .GFRon 05-14-2024 GFR Non- 90 ml/min/1.73sqm [facility] Comment on above: Result Comment: GFR [...] ADIFF, DIMER, CBC, PBNP, TROPHS #### [address] [address] GFR 109 ml/min/1.73sqm Normal [facility] [...] ADIFF, DIMER, CBC, PBNP, TROPHS #### [address] [address] A1Con 05-14-2024 Glucose [Mass/Vol] 120 mg/dL Normal [facility] Comment on above: Result Comment: Zahida mated Average Glucose calculated by equation ((28.7xA1C)-46.7) Estimated average glucose (eAG) is a calculated value from Hemoglobin A1C and is artist representative of the average blood glucose level in the last 2-3 month period. Normal range: less than 114 mg/dL Performed By: #### A ELY REYES, JULIÁN, MG, GFR, ADIFF, DIMER, CBC, PBNP, TROPHS #### [address] [address] HbA1c (Bld) [Mass fraction] 5.8 % Normal 4.3-6.4 [facility] Comment on above: Performed By: #### A ELY REYES, BMP, MG, GFR, ADIFF, DIMER, CBC, PBNP, TROPHS #### [address] [address] CMPon 05-14-2024 Albumin Level 3.4 G/dL Low 3.5-5.0 [facility] Comment on above: Performed By: #### A ELY REYES, BMP, MG, GFR, ADIFF, DIMER, CBC, PBNP, TROPHS #### [place] [id number] Albumin/Globulin [Mass ratio] 0.9 {ratio} Low 1.1-2.5 [facility] Comment on above: Performed By: #### A ELY REYES, BMP, MG, GFR, ADIFF, DIMER, CBC, PBNP, TROPHS #### [address] [address] ALP [Catalytic activity/Vol] 87 U/L Normal 40-135 [facility] Comment on above: Performed By: #### A ELY REYES, BMP, MG, GFR, ADIFF, DIMER, CBC, PBNP, TROPHS #### [address] [address] ALT [Catalytic activity/Vol] 17 U/L Normal 16-63 [facility] Comment on above: Performed By: #### A ELY REYES, JULIÁN, MG, GFR, ADIFF, DIMER, CBC, PBNP, TROPHS #### [address] [address] AST [Catalytic activity/Vol] 12 U/L Normal 10-40 [facility] Comment on above: Performed By: #### A ELY REYES, BMP, MG, GFR, ADIFF, DIMER, CBC, PBNP, TROPHS #### [place] [id number] Bili Total 0.3 mg/dL Normal 0.2-1.0 [facility] Comment on above: Result Comment: Use of this assay is not recommended for patients undergoing treatment with eltrombopag due to the potential for falsely elevated results. Performed By: #### A ELY REYES, BMP, MG, GFR, ADIFF, DIMER, CBC, PBNP, TROPHS #### [address] [address] BUN/Creatinine Ratio 15 ratio Normal 7-27 [facility] Comment on above: Performed By: #### A ELY REYES, BMP, MG, GFR, ADIFF, DIMER, CBC, PBNP, TROPHS #### [address] [address] Calcium [Mass/Vol] 8.9 mg/dL Normal 8.4-10.2 [facility] Comment on above: Performed By: #### A ELY REYES, BMP, MG, GFR, ADIFF, DIMER, CBC, PBNP, TROPHS #### [address] [address] Chloride [Moles/Vol] 101 mmol/L Normal 98-107 [facility] Comment on above: Performed By: #### A ELY REYES, BMP, MG, GFR, ADIFF, DIMER, CBC, PBNP, TROPHS #### [address] [address] CO2 [Moles/Vol] 34 mmol/L High 22-29 [facility] Comment on above: Performed By: #### A ELY REYES, BMP, MG, GFR, ADIFF, DIMER, CBC, PBNP, TROPHS #### [address] [address] Creatinine [Mass/Vol] 0.89 mg/dL Normal 0.70-1.30 [facility] Comment on above: Result Comment: Test ing performed on Siemens Dimension EXL analyzer using a modified kinetic Ciera technique. Performed By: #### A ELY REYES, BMP, MG, GFR, ADIFF, DIMER, CBC, PBNP, TROPHS #### [address] [address] Electrolyte Balance 5.0 mEq/L Normal 4.0-15.0 [facility] Comment on above: Performed By: #### A ELY REYES, BMP, MG, GFR, ADIFF, DIMER, CBC, PBNP, TROPHS #### [address] [address] Globulin 3.8 G/dL Normal [facility] Comment on above: Performed By: #### A ELY REYES, BMP, MG, GFR, ADIFF, DIMER, CBC, PBNP, TROPHS #### [place] [address] Glucose [Mass/Vol] 99 mg/dL Normal 70-105 [facility] Comment on above: Performed By: #### A ELY REYES, BMP, MG, GFR, ADIFF, DIMER, CBC, PBNP, TROPHS #### [place] [address] Potassium [Moles/Vol] 4.0 mmol/L Normal 3.5-5.1 [facility] Comment on above: Performed By: #### A ELY REYES, BMP, MG, GFR, ADIFF, DIMER, CBC, PBNP, TROPHS #### [place] [address] Sodium [Moles/Vol] 140 mmol/L Normal 136-145 [facility] Comment on above: Performed By: #### A ELY REYES, BMP, MG, GFR, ADIFF, DIMER, CBC, PBNP, TROPHS #### [place] [address] Total Protein 7.2 G/dL Normal 6.4-8.2 [facility] Comment on above: Performed By: #### A ELY REYES, BMP, MG, GFR, ADIFF, DIMER, CBC, PBNP, TROPHS #### [place] [address] Urea nitrogen [Mass/Vol] 13 mg/dL Normal 7-18 [facility] Comment on above: Performed By: #### A ELY REYES, BMP, MG, GFR, ADIFF, DIMER, CBC, PBNP, TROPHS #### [place] [address] LABORATORYOrdered By: SYSTEM SYSTEM on 05-14-2024 Albumin [...] calculated value from Hemoglobin A1C and is artist representative of the average blood glucose level [...] Normal 0-200 [facility] Comment on above: Result Comment: Chol esterol Reference Interval: Less than 200 Desirable 200-239 Borderline high risk 240 and above High risk Performed By: #### A ELY REYES, JULIÁN, MG, GFR, ADIFF, DIMER, CBC, PBNP, TROPHS #### [address] [address] Cholesterol in HDL [Mass/Vol] 24 mg/dL Low 40-60 [facility] Comment on above: Performed By: #### A ELY REYES, JULIÁN, MG, GFR, ADIFF, DIMER, CBC, PBNP, TROPHS #### [address] [address] Cholesterol in LDL [Mass/Vol] 72 mg/dL Normal 0-130 [facility] Comment on above: Performed By: #### A ELY REYES, BMP, MG, GFR, ADIFF, DIMER, CBC, PBNP, TROPHS #### [address] [address] Triglyceride [Mass/Vol] 242 mg/dL High 0-150 [facility] Comment on above: Result Comment: Trig lyceride Reference Interval: Less than 150 Normal 150-199 Borderline high risk 200-499 High risk 500 or higher Very high risk Performed By: #### A ELY REYES, BMP, MG, GFR, ADIFF, DIMER, CBC, PBNP, TROPHS #### [facility] [address] [place], [place] [address] Final Surgical Pathology Rep ezequiel 03-27-2024 Final Surgical Pathology Report . Pathology Reports Accession: Collected Date/Time: Received Date/Time: Pathologist: [id number] 03/25/2024 15:47 EDT 03/26/2024 07:38 EDT BEAU WILBURN MD Final Surgical Pathology Report DIAGNOSIS: RIGHT ARM EXCISION: - GLOMANGIOMYOMA CLINICAL INFORMATION: SKIN LESION Procedure: EXCISION Preoperative diagnosis: SKIN LESION Postoperative diagnosis: SKIN LESION SPECIMEN: A RIGHT ARM GROSS DESCRIPTION: All parts labelled with patient name and [id number] Received in formalin labelled "right arm excision" Is a unoriented ellipse of skin measuring 1.5 x 0.4 and excised to depth of 1.2 cm. Excision margin inked black. Skin surface grossly unremarkable, located within the underlying soft tissue is a santillan firm well-circumscribed possible mass/lymph node measuring 0.6 x 0.6 x 0.6 cm. TS-2 Austin Haddad, Pathologists' Brassiere Cup [employer] Cutter (ASCP) Performed by AUSTIN HADDAD MICROSCOPIC DESCRIPTION: The microscopic examination is performed, except in the case of Gross Only. Electronically Signed by Pathology Report verified by [facility] BEAU WILBURN Sign out Date: 03/27/2024 16:10 Performing Lab: [facility], [address] [place] [address] Pathology Dept Disclaimer If ancillary studies were utilized, the following Laboratory Developed Test (LDT) disclaimer will apply: Under CLIA requirements, [facility] is qualified to perform high complexity testing. For all ancillary stains, positive and negative controls stain appropriately. Performance characteristics of immunohistochemical and chromogenic in-situ hybridization tests have been determined by [facility]. These tests are used for clinical purposes, They should not be regarded as investigational or for research. Normal [facility] US SOFT TISSUE MASS OF RT AR M OR LEGon 02-18-2024 US SOFT TISSUE MASS OF RT ARM OR LEG ORIGINAL EXAMINATION: SOFT TISSUE ULTRASOUND OF THE RIGHT EXTREMITY02/16/2024 1:10 pm COMPARISON: None TECHNIQUE: Duplex ultrasound using B-mode/ucrry scaled imaging and Doppler spectral analysis and [...] 11:09:23 AM Ordering Provider: GIRMA CORREA Normal [facility] TSHon 02-15-2024 TSH Qn 1.65 m[IU]/L Normal 0.36-3.74 [facility] Comment on above: Performed By: #### A ELY REYES, JULIÁN, MG, GFR, ADIFF, DIMER, CBC, PBNP, TROPHS #### [address] [address] .GFRon 02-12-2024 GFR 95 ml/min/1.73sqm Normal [facility] [...] GFR, ADIFF, DIMER, CBC, PBNP, TROPHS #### [id number] [place], [place] [address] GFR Non- 78 ml/min/1.73sqm Normal [facility] ADIFF, DIMER, CBC, PBNP, TROPHS #### [address] [address] A1Con 02-12-2024 Glucose [Mass/Vol] 131 mg/dL Normal [facility] Comment on above: Result Comment: Zahida mated Average Glucose calculated by equation ((28.7xA1C)-46.7) Estimated average glucose (eAG) is a calculated value from Hemoglobin A1C and is artist representative of the average blood glucose level in the last 2-3 month period. Normal range: less than 114 mg/dL Performed By: #### A ELY REYES, JULIÁN, MG, GFR, ADIFF, DIMER, CBC, PBNP, TROPHS #### [address] [address] HbA1c (Bld) [Mass fraction] 6.2 % Normal 4.3-6.4 [facility] Comment on above: Performed By: #### A ELY REYES, JULIÁN, MG, GFR, ADIFF, DIMER, CBC, PBNP, TROPHS #### [address] [address] CMPon 02-12-2024 Albumin Level 3.3 G/dL Low 3.5-5.0 [facility] Comment on above: Performed By: #### A ELY REYES, BMP, MG, GFR, ADIFF, DIMER, CBC, PBNP, TROPHS #### [place] [address] Albumin/Globulin [Mass ratio] 0.9 {ratio} Low 1.1-2.5 [facility] Comment on above: Performed By: #### A ELY REYES, BMP, MG, GFR, ADIFF, DIMER, CBC, PBNP, TROPHS #### [place] [address] ALP [Catalytic activity/Vol] 74 U/L Normal 40-135 [facility] Comment on above: Performed By: #### A ELY REYES, BMP, MG, GFR, ADIFF, DIMER, CBC, PBNP, TROPHS #### [place] [address] ALT [Catalytic activity/Vol] 20 U/L Normal 16-63 [facility] Comment on above: Performed By: #### A ELY REYES, JULIÁN, MG, GFR, ADIFF, DIMER, CBC, PBNP, TROPHS #### [place] [address] AST [Catalytic activity/Vol] 13 U/L Normal 10-40 [facility] Comment on above: Performed By: #### A ELY REYES, BMP, MG, GFR, ADIFF, DIMER, CBC, PBNP, TROPHS #### [place] [address] Bili Total 0.5 mg/dL Normal 0.2-1.0 [facility] Comment on above: Result Comment: Use of this assay is not recommended for patients undergoing treatment with eltrombopag due to the potential for falsely elevated results. Performed By: #### A ELY REYES, BMP, MG, GFR, ADIFF, DIMER, CBC, PBNP, TROPHS #### [address] [address] BUN/Creatinine Ratio 6 ratio Low 7-27 [facility] Comment on above: Performed By: #### A ELY REYES, BMP, MG, GFR, ADIFF, DIMER, CBC, PBNP, TROPHS #### [place] [address] Calcium [Mass/Vol] 8.5 mg/dL Normal 8.4-10.2 [facility] Comment on above: Performed By: #### A ELY REYES, BMP, MG, GFR, ADIFF, DIMER, CBC, PBNP, TROPHS #### [place] [address] Chloride [Moles/Vol] 100 mmol/L Normal 98-107 [facility] Comment on above: Performed By: #### A ELY REYES, BMP, MG, GFR, ADIFF, DIMER, CBC, PBNP, TROPHS #### [place] [address] CO2 [Moles/Vol] 34 mmol/L High 22-29 [facility] Comment on above: Performed By: #### A ELY REYES, BMP, MG, GFR, ADIFF, DIMER, CBC, PBNP, TROPHS #### [place] [address] Creatinine [Mass/Vol] 1.00 mg/dL Normal 0.70-1.30 [facility] Comment on above: Result Comment: Test ing performed on Siemens Dimension EXL analyzer using a modified kinetic Ciera technique. Performed By: #### A ELY REYES, BMP, MG, GFR, ADIFF, DIMER, CBC, PBNP, TROPHS #### [place] [address] Electrolyte Balance 4.0 mEq/L Normal 4.0-15.0 [facility] Comment on above: Performed By: #### A ELY REYES, BMP, MG, GFR, ADIFF, DIMER, CBC, PBNP, TROPHS #### [place] [address] Globulin 3.8 G/dL Normal [facility] Comment on above: Performed By: #### A ELY REYES, BMP, MG, GFR, ADIFF, DIMER, CBC, PBNP, TROPHS #### [address] [address] Glucose [Mass/Vol] 80 mg/dL Normal 70-105 [facility] Comment on above: Performed By: #### A ELY REYES, BMP, MG, GFR, ADIFF, DIMER, CBC, PBNP, TROPHS #### [address] [address] Potassium [Moles/Vol] 4.3 mmol/L Normal 3.5-5.1 [facility] Comment on above: Performed By: #### A ELY REYES, BMP, MG, GFR, ADIFF, DIMER, CBC, PBNP, TROPHS #### [address] [address] Sodium [Moles/Vol] 138 mmol/L Normal 136-145 [facility] Comment on above: Performed By: #### A ELY REYES, BMP, MG, GFR, ADIFF, DIMER, CBC, PBNP, TROPHS #### [address] [address] Total Protein 7.1 G/dL Normal 6.4-8.2 [facility] Comment on above: Performed By: #### A ELY REYES, BMP, MG, GFR, ADIFF, DIMER, CBC, PBNP, TROPHS #### [address] [address] Urea nitrogen [Mass/Vol] 6 mg/dL Low 7-18 [facility] Comment on above: Performed By: #### A ELY REYES, BMP, MG, GFR, ADIFF, DIMER, CBC, PBNP, TROPHS #### [address] [address] LABORATORYOrdered By: SYSTEM SYSTEM on 02-12-2024 Albumin [...] calculated value from Hemoglobin A1C and is artist representative of the average blood glucose level [...] Normal 0-200 [facility] Comment on above: Result Comment: Chol esterol Reference Interval: Less than 200 Desirable 200-239 Borderline high risk 240 and above High risk Performed By: #### A ELY REYES, BMP, MG, GFR, ADIFF, DIMER, CBC, PBNP, TROPHS #### [address] [address] Cholesterol in HDL [Mass/Vol] 25 mg/dL Low 40-60 [facility] Comment on above: Performed By: #### A ELY REYES, JULIÁN, MG, GFR, ADIFF, DIMER, CBC, PBNP, TROPHS #### [address] [address] Cholesterol in LDL [Mass/Vol] 53 mg/dL Normal 0-130 [facility] Comment on above: Performed By: #### A ELY REYES, BMP, MG, GFR, ADIFF, DIMER, CBC, PBNP, TROPHS #### [address] [address] Triglyceride [Mass/Vol] 196 mg/dL High 0-150 [facility] Comment on above: Result Comment: Trig lyceride Reference Interval: Less than 150 Normal 150-199 Borderline high risk 200-499 High risk 500 or higher Very high risk Performed By: #### A ELY REYES, BMP, MG, GFR, ADIFF, DIMER, CBC, PBNP, TROPHS #### [address] [address] PSAon 02-12-2024 Prostate Specific Antigen 0.25 ng/mL Normal 0.00-4.00 [facility] Comment on above: Performed By: #### A ERIC, MDW, BMP, MG, GFR, ADIFF, DIMER, CBC, PBNP, TROPHS #### [address] [address] .Auto Diffon 02-01-2024 Basophil, Absolute 0.1 10 3/mcL Normal 0.0-0.3 [facility] ([place]) Comment on above: Performed By: #### A DIFF, TROPHS, GFR, BMP, MDW, CBC, PBNP, ANEU #### [address] [address] Basophils/100 WBC (Bld) 0.8 % Normal 0.0-2.5 [facility] ([place]) Comment on above: Performed By: #### A DIFF, TROPHS, GFR, BMP, MDW, CBC, PBNP, ANEU #### [address] [address] Eosinophil, Absolute 0.1 10 3/mcL Normal 0.0-0.7 [facility] ([place]) Comment on above: Performed By: #### A DIFF, TROPHS, GFR, BMP, MDW, CBC, PBNP, ANEU #### [address] [address] Eosinophils/100 WBC (Bld) 1.2 % Normal 0.0-6.0 [facility] ([place]) Comment on above: Performed By: #### A DIFF, TROPHS, GFR, BMP, MDW, CBC, PBNP, ANEU #### [address] [address] Lymphocyte, Absolute 1.4 10 3/mcL Normal 0.9-4.3 [facility] ([place]) Comment on above: Performed By: #### A DIFF, TROPHS, GFR, BMP, MDW, CBC, PBNP, ANEU #### [address] [address] Lymphocytes/100 WBC (Bld) 19.9 % Low 20.0-40.0 [facility] ([place]) Comment on above: Performed By: #### A DIFF, TROPHS, GFR, BMP, MDW, CBC, PBNP, ANEU #### [address] [address] Monocyte, Absolute 0.7 10 3/mcL Normal 0.1-1.4 [facility] ([place]) Comment on above: Performed By: #### A DIFF, TROPHS, GFR, BMP, MDW, CBC, PBNP, ANEU #### [address] [address] Monocytes/100 WBC (Bld) 9.4 % Normal 2.0-13.0 [facility] ([place]) Comment on above: Performed By: #### A DIFF, TROPHS, GFR, BMP, MDW, CBC, PBNP, ANEU #### [address] [address] Neutrophils/100 WBC (Bld) 68.7 % Normal 50.0-75.0 [facility] ([place]) Comment on above: Performed By: #### A DIFF, TROPHS, GFR, BMP, MDW, CBC, PBNP, ANEU #### [address] [address] .GFRon 02-01-2024 GFR >60 Normal [facility] ([place]) Comment on above: Result Comment: GFR Population [...] GFR, BMP, MDW, CBC, PBNP, ANEU #### [address] [address] GFR Non- >60 Normal [facility] ([place]) Comment on above: Result Comment: GFR Population [...] GFR, BMP, MDW, CBC, PBNP, ANEU #### [address] [address] .NEUABSon 02-01-2024 Neutrophil, Absolute 4.8 10 3/mcL Normal 2.3-8.1 [facility] ([place]) Comment on above: Performed By: #### A DIFF, TROPHS, GFR, BMP, MDW, CBC, PBNP, ANEU #### [address] [address] APTTon 02-01-2024 aPTT Coag (Bld) [Time] 47.1 s High 25.0-35.0 [facility] ([place]) Comment on above: Result Comment: For Heparin anticoagulation therapy, the recommended therapeutic range is: 54-77 seconds (APTT Correlation with Anti-Xa therapeutic range of 0.3-0.7 units/ml). PLEASE REFERENCE THE PHARMACY PROTOCOL FOR DOSING. Performed By: #### A DIFF, TROPHS, GFR, BMP, MDW, CBC, PBNP, ANEU #### [address] [address] aPTT Coag (Bld) [Time] 46.1 s High 25.0-35.0 [facility] ([place]) Comment on above: Result Comment: For Heparin anticoagulation therapy, the recommended therapeutic range is: 54-77 seconds (APTT Correlation with Anti-Xa therapeutic range of 0.3-0.7 units/ml). PLEASE REFERENCE THE PHARMACY PROTOCOL FOR DOSING. Performed By: #### A DIFF, TROPHS, GFR, BMP, MDW, CBC, PBNP, ANEU #### [address] [address] BMPon 02-01-2024 BUN/Creatinine Ratio 14.8 ratio Normal 10.0-22.0 [facility] ([place]) Comment on above: Performed By: #### A DIFF, TROPHS, GFR, BMP, MDW, CBC, PBNP, ANEU #### [address] [address] Calcium [Mass/Vol] 8.8 mg/dL Normal 8.7-10.4 [facility] ([place]) Comment on above: Performed By: #### A DIFF, TROPHS, GFR, BMP, MDW, CBC, PBNP, ANEU #### [address] [address] Chloride [Moles/Vol] 100 mmol/L Normal 98-110 [facility] ([place]) Comment on above: Performed By: #### A DIFF, TROPHS, GFR, BMP, MDW, CBC, PBNP, ANEU #### [address] [address] CO2 [Moles/Vol] 32 mmol/L Normal 22-32 [facility] ([place]) Comment on above: Performed By: #### A DIFF, TROPHS, GFR, BMP, MDW, CBC, PBNP, ANEU #### [address] [address] Creatinine [Mass/Vol] 1.15 mg/dL Normal 0.60-1.40 [facility] ([place]) Comment on above: Result Comment: Test ing performed on Evgen analyzer using enzymatic creatinine methodology. Performed By: #### A DIFF, TROPHS, GFR, BMP, MDW, CBC, PBNP, ANEU #### [address] [address] Electrolyte Balance 5.0 mEq/L Normal 4.0-15.0 [facility] ([place]) Comment on above: Performed By: #### A DIFF, TROPHS, GFR, BMP, MDW, CBC, PBNP, ANEU #### [address] [address] Glucose [Mass/Vol] 124 mg/dL High 70-110 [facility] ([place]) Comment on above: Performed By: #### A DIFF, TROPHS, GFR, BMP, MDW, CBC, PBNP, ANEU #### [address] [address] Potassium [Moles/Vol] 3.4 mmol/L Low 3.5-5.0 [facility] ([place]) Comment on above: Performed By: #### A DIFF, TROPHS, GFR, BMP, MDW, CBC, PBNP, ANEU #### [address] [address] Sodium [Moles/Vol] 137 mmol/L Normal 136-145 [facility] ([place]) Comment on above: Performed By: #### A DIFF, TROPHS, GFR, BMP, MDW, CBC, PBNP, ANEU #### [address] [address] Urea nitrogen [Mass/Vol] 17.0 mg/dL Normal 8.0-22.0 [facility] ([place]) Comment on above: Performed By: #### A DIFF, TROPHS, GFR, BMP, MDW, CBC, PBNP, ANEU #### [address] [address] CBCon 02-01-2024 Erythrocyte distribution width (RBC) [Ratio] 16.2 % High 11.5-15.5 [facility] ([place]) Comment on above: Performed By: #### A DIFF, TROPHS, GFR, BMP, MDW, CBC, PBNP, ANEU #### [address] [address] Hematocrit (Bld) [Volume fraction] 40.5 % Normal 40.0-52.0 [facility] ([place]) Comment on above: Performed By: #### A DIFF, TROPHS, GFR, BMP, MDW, CBC, PBNP, ANEU #### [address] [address] Hgb 13.0 G/dL Normal 13.0-17.5 [facility] ([place]) Comment on above: Performed By: #### A DIFF, TROPHS, GFR, BMP, MDW, CBC, PBNP, ANEU #### [address] [address] MCH (RBC) [Entitic mass] 26.0 pg Low 27.0-33.0 [facility] ([place]) Comment on above: Performed By: #### A DIFF, TROPHS, GFR, BMP, MDW, CBC, PBNP, ANEU #### [address] [address] MCHC 32.2 G/dL Normal 32.0-36.0 [facility] ([place]) Comment on above: Performed By: #### A DIFF, TROPHS, GFR, BMP, MDW, CBC, PBNP, ANEU #### [address] [address] MCV (RBC) [Entitic vol] 80.6 fL Low 81.0-100.0 [facility] ([place]) Comment on above: Performed By: #### A DIFF, TROPHS, GFR, BMP, MDW, CBC, PBNP, ANEU #### [address] [address] Platelet 161 10 3/mcL Normal 150-450 [facility] ([place]) Comment on above: Performed By: #### A DIFF, TROPHS, GFR, BMP, MDW, CBC, PBNP, ANEU #### [address] [address] Platelet mean volume (Bld) [Entitic vol] 6.8 fL Normal 6.4-10.5 [facility] ([place]) Comment on above: Performed By: #### A DIFF, TROPHS, GFR, BMP, MDW, CBC, PBNP, ANEU #### [address] [address] RBC 5.02 10 6/mcL Normal 4.50-6.00 [facility] ([place]) Comment on above: Performed By: #### A DIFF, TROPHS, GFR, BMP, MDW, CBC, PBNP, ANEU #### [address] [address] WBC 6.9 10 3/mcL Normal 4.5-10.8 [facility] ([place]) Comment on above: Performed By: #### A DIFF, TROPHS, GFR, BMP, MDW, CBC, PBNP, ANEU #### [address] [address] LABORATORYOrdered By: SYSTEM SYSTEM on 02-01-2024 aPTT [...] above: Interpretive Data: T esting performed on Evgen analyzer using enzymatic creatinine methodology. Electrolyte Balance [...] 68.7 % Normal 50.0 - 75.0 % Workflow [...] 02-01-2024 Magnesium [Mass/Vol] 2.2 mg/dL Normal 1.6-2.4 [facility] ([place]) Comment on above: Performed By: #### A DIFF, TROPHS, GFR, BMP, MDW, CBC, PBNP, ANEU #### [address] [address] .Auto Diffon 01-31-2024 Basophil, Absolute 0.1 10 3/mcL Normal 0.0-0.3 [facility] ([place]) Comment on above: Performed By: #### A DIFF, TROPHS, GFR, BMP, MDW, CBC, PBNP, ANEU #### [address] [address] Basophils/100 WBC (Bld) 1.0 % Normal 0.0-2.5 [facility] ([place]) Comment on above: Performed By: #### A DIFF, TROPHS, GFR, BMP, MDW, CBC, PBNP, ANEU #### [address] [address] Eosinophil, Absolute 0.1 10 3/mcL Normal 0.0-0.7 [facility] ([place]) Comment on above: Performed By: #### A DIFF, TROPHS, GFR, BMP, MDW, CBC, PBNP, ANEU #### [address] [address] Eosinophils/100 WBC (Bld) 1.1 % Normal 0.0-6.0 [facility] ([place]) Comment on above: Performed By: #### A DIFF, TROPHS, GFR, BMP, MDW, CBC, PBNP, ANEU #### [address] [address] Lymphocyte, Absolute 3.0 10 3/mcL Normal 0.9-4.3 [facility] ([place]) Comment on above: Performed By: #### A DIFF, TROPHS, GFR, BMP, MDW, CBC, PBNP, ANEU #### [address] [address] Lymphocytes/100 WBC (Bld) 22.7 % Normal 20.0-40.0 [facility] ([place]) Comment on above: Performed By: #### A DIFF, TROPHS, GFR, BMP, MDW, CBC, PBNP, ANEU #### [address] [address] Monocyte, Absolute 1.4 10 3/mcL Normal 0.1-1.4 [facility] ([place]) Comment on above: Performed By: #### A DIFF, TROPHS, GFR, BMP, MDW, CBC, PBNP, ANEU #### [address] [address] Monocytes/100 WBC (Bld) 11.0 % Normal 2.0-13.0 [facility] ([place]) Comment on above: Performed By: #### A DIFF, TROPHS, GFR, BMP, MDW, CBC, PBNP, ANEU #### [address] [address] Neutrophils/100 WBC (Bld) 64.2 % Normal 50.0-75.0 [facility] ([place]) Comment on above: Performed By: #### A DIFF, TROPHS, GFR, BMP, MDW, CBC, PBNP, ANEU #### [address] [address] .GFRon 01-31-2024 GFR 46 ml/min/1.73sqm Normal [facility] ([place]) Comment on above: Result Comment: GFR Population [...] GFR, BMP, MDW, CBC, PBNP, ANEU #### [address] [address] GFR Non- 38 ml/min/1.73sqm Normal [facility] ([place]) Comment on above: Result Comment: GFR Population [...] GFR, BMP, MDW, CBC, PBNP, ANEU #### [address] [address] .NEUABSon 01-31-2024 Neutrophil, Absolute 8.5 10 3/mcL High 2.3-8.1 [facility] ([place]) Comment on above: Performed By: #### A DIFF, TROPHS, GFR, BMP, MDW, CBC, PBNP, ANEU #### [address] [address] APTTon 01-31-2024 aPTT Coag (Bld) [Time] 34.5 s Normal 25.0-35.0 [facility] ([place]) Comment on above: Result Comment: For Heparin anticoagulation therapy, the recommended therapeutic range is: 54-77 seconds (APTT Correlation with Anti-Xa therapeutic range of 0.3-0.7 units/ml). PLEASE REFERENCE THE PHARMACY PROTOCOL FOR DOSING. Performed By: #### A DIFF, TROPHS, GFR, BMP, MDW, CBC, PBNP, ANEU #### [address] [address] aPTT Coag (Bld) [Time] 33.9 s Normal 25.0-35.0 [facility] ([place]) Comment on above: Result Comment: For Heparin anticoagulation therapy, the recommended therapeutic range is: 54-77 seconds (APTT Correlation with Anti-Xa therapeutic range of 0.3-0.7 units/ml). PLEASE REFERENCE THE PHARMACY PROTOCOL FOR DOSING. Performed By: #### A DIFF, TROPHS, GFR, BMP, MDW, CBC, PBNP, ANEU #### [address] [address] aPTT Coag (Bld) [Time] 26.2 s Normal 25.0-35.0 [facility] ([place]) Comment on above: Result Comment: For Heparin anticoagulation therapy, the recommended therapeutic range is: 54-77 seconds (APTT Correlation with Anti-Xa therapeutic range of 0.3-0.7 units/ml). PLEASE REFERENCE THE PHARMACY PROTOCOL FOR DOSING. Performed By: #### A DIFF, TROPHS, GFR, BMP, MDW, CBC, PBNP, ANEU #### [address] [address] CAIONon 01-31-2024 Calcium Ionized 1.07 mmol/L Low 1.12-1.32 [facility] ([place]) Comment on above: Performed By: #### T ROPHS, CMP, CAION, LAC, CBC, ADIFF, GFR, PHOS, MG, ANEU #### [address] [address] CBCon 01-31-2024 Erythrocyte distribution width (RBC) [Ratio] 16.3 % High 11.5-15.5 [facility] ([place]) Comment on above: Performed By: #### A DIFF, TROPHS, GFR, BMP, MDW, CBC, PBNP, ANEU #### [address] [address] Hematocrit (Bld) [Volume fraction] 42.8 % Normal 40.0-52.0 [facility] ([place]) Comment on above: Performed By: #### A DIFF, TROPHS, GFR, BMP, MDW, CBC, PBNP, ANEU #### [address] [address] Hgb 14.0 G/dL Normal 13.0-17.5 [facility] ([place]) Comment on above: Performed By: #### A DIFF, TROPHS, GFR, BMP, MDW, CBC, PBNP, ANEU #### [address] [address] MCH (RBC) [Entitic mass] 25.9 pg Low 27.0-33.0 [facility] ([place]) Comment on above: Performed By: #### A DIFF, TROPHS, GFR, BMP, MDW, CBC, PBNP, ANEU #### [address] [address] MCHC 32.6 G/dL Normal 32.0-36.0 [facility] ([place]) Comment on above: Performed By: #### A DIFF, TROPHS, GFR, BMP, MDW, CBC, PBNP, ANEU #### [address] [address] MCV (RBC) [Entitic vol] 79.5 fL Low 81.0-100.0 [facility] ([place]) Comment on above: Performed By: #### A DIFF, TROPHS, GFR, BMP, MDW, CBC, PBNP, ANEU #### [address] [address] Platelet 270 10 3/mcL Normal 150-450 [facility] ([place]) Comment on above: Performed By: #### A DIFF, TROPHS, GFR, BMP, MDW, CBC, PBNP, ANEU #### [address] [address] Platelet mean volume (Bld) [Entitic vol] 7.0 fL Normal 6.4-10.5 [facility] ([place]) Comment on above: Performed By: #### A DIFF, TROPHS, GFR, BMP, MDW, CBC, PBNP, ANEU #### [address] [address] RBC 5.39 10 6/mcL Normal 4.50-6.00 [facility] ([place]) Comment on above: Performed By: #### A DIFF, TROPHS, GFR, BMP, MDW, CBC, PBNP, ANEU #### [address] [address] WBC 13.2 10 3/mcL High 4.5-10.8 [facility] ([place]) Comment on above: Performed By: #### A DIFF, TROPHS, GFR, BMP, MDW, CBC, PBNP, ANEU #### [address] [address] CMPon 01-31-2024 Albumin Level 3.0 G/dL Low 3.2-4.8 [facility] ([place]) Comment on above: Performed By: #### A DIFF, TROPHS, GFR, BMP, MDW, CBC, PBNP, ANEU #### [address] [address] Albumin/Globulin [Mass ratio] 0.8 {ratio} Low 0.9-1.6 [facility] ([place]) Comment on above: Performed By: #### A DIFF, TROPHS, GFR, BMP, MDW, CBC, PBNP, ANEU #### [address] [address] ALP [Catalytic activity/Vol] 77 U/L Normal 38-126 [facility] ([place]) Comment on above: Performed By: #### A DIFF, TROPHS, GFR, BMP, MDW, CBC, PBNP, ANEU #### [address] [address] ALT/SGPT <8 Low 12-55 [facility] ([place]) Comment on above: Performed By: #### A DIFF, TROPHS, GFR, BMP, MDW, CBC, PBNP, ANEU #### [address] [address] AST [Catalytic activity/Vol] 12 U/L Normal 8-34 [facility] ([place]) Comment on above: Performed By: #### A DIFF, TROPHS, GFR, BMP, MDW, CBC, PBNP, ANEU #### [address] [address] Bili Total 0.40 mg/dL Normal 0.20-1.20 [facility] ([place]) Comment on above: Result Comment: Use of this assay is not recommended for patients undergoing treatment with eltrombopag due to the potential for falsely elevated results. Performed By: #### A DIFF, TROPHS, GFR, BMP, MDW, CBC, PBNP, ANEU #### [address] [address] BUN/Creatinine Ratio 11.2 ratio Normal 10.0-22.0 [facility] ([place]) Comment on above: Performed By: #### A DIFF, TROPHS, GFR, BMP, MDW, CBC, PBNP, ANEU #### [address] [address] Calcium [Mass/Vol] 8.8 mg/dL Normal 8.7-10.4 [facility] ([place]) Comment on above: Performed By: #### A DIFF, TROPHS, GFR, BMP, MDW, CBC, PBNP, ANEU #### [address] [address] Chloride [Moles/Vol] 100 mmol/L Normal 98-110 [facility] ([place]) Comment on above: Performed By: #### A DIFF, TROPHS, GFR, BMP, MDW, CBC, PBNP, ANEU #### [address] [address] CO2 [Moles/Vol] 29 mmol/L Normal 22-32 [facility] ([place]) Comment on above: Performed By: #### A DIFF, TROPHS, GFR, BMP, MDW, CBC, PBNP, ANEU #### [place] [address] [place], [place] [address] Creatinine [Mass/Vol] 1.87 mg/dL High 0.60-1.40 [facility] ([place]) Comment on above: Result Comment: Test ing performed on Evgen analyzer using enzymatic creatinine methodology. Performed By: #### A DIFF, TROPHS, GFR, BMP, MDW, CBC, PBNP, ANEU #### [address] [address] Electrolyte Balance 8.0 mEq/L Normal 4.0-15.0 [facility] ([place]) Comment on above: Performed By: #### A DIFF, TROPHS, GFR, BMP, MDW, CBC, PBNP, ANEU #### [address] [address] Globulin 3.7 G/dL Normal 1.5-3.8 [facility] ([place]) Comment on above: Performed By: #### A DIFF, TROPHS, GFR, BMP, MDW, CBC, PBNP, ANEU #### [address] [address] Glucose [Mass/Vol] 133 mg/dL High 70-110 [facility] ([place]) Comment on above: Performed By: #### A DIFF, TROPHS, GFR, BMP, MDW, CBC, PBNP, ANEU #### [address] [address] Potassium [Moles/Vol] 3.6 mmol/L Normal 3.5-5.0 [facility] ([place]) Comment on above: Performed By: #### A DIFF, TROPHS, GFR, BMP, MDW, CBC, PBNP, ANEU #### [address] [address] Sodium [Moles/Vol] 137 mmol/L Normal 136-145 [facility] ([place]) Comment on above: Performed By: #### A DIFF, TROPHS, GFR, BMP, MDW, CBC, PBNP, ANEU #### [address] [address] Total Protein 6.7 G/dL Normal 5.7-8.2 [facility] ([place]) Comment on above: Result Comment: No te - New Reference Range in effect 19 Performed By: #### A DIFF, TROPHS, GFR, BMP, MDW, CBC, PBNP, ANEU #### [address] [address] Urea nitrogen [Mass/Vol] 21.0 mg/dL Normal 8.0-22.0 [facility] ([place]) Comment on above: Performed By: #### A DIFF, TROPHS, GFR, BMP, MDW, CBC, PBNP, ANEU #### [address] [address] CVFLURVon 01-31-2024 FLU A PCR Negative Normal Negative [facility] ([place]) Comment on above: Result Comment: [place] [id number] Performed By: #### A DIFF, TROPHS, GFR, BMP, MDW, CBC, PBNP, ANEU #### [address] [address] FLU B PCR Negative Normal Negative [facility] ([place]) Comment on above: Result Comment: Note s [id number] Performed By: #### A DIFF, TROPHS, GFR, BMP, MDW, CBC, PBNP, ANEU #### [address] [address] RSV PCR Negative Normal Negative [facility] ([place]) Comment on above: Result Comment: Note [place] [id number] Performed By: #### A DIFF, TROPHS, GFR, BMP, MDW, CBC, PBNP, ANEU #### [address] [address] SARS-CoV-2 (COVID-19) RNA ROSE+probe Ql (Unsp spec) Negative Normal Negative [facility] ([place]) Comment on above: Result Comment: [place] [id number] This test has been authorized by FDA [...] BMP, MDW, CBC, PBNP, ANEU #### [place] [address] LABORATORYOrdered By: SYSTEM SYSTEM on 01-31-2024 aPTT [...] above: Interpretive Data: T esting performed on Evgen analyzer using enzymatic creatinine methodology. Electrolyte Balance [...] Comment on above: Interpretive Data: Baljinder linn [employer] (CHEST, 1992, 102:312S-25S) [...] ng/L Male: 0-54 ng/L Testing performed on Pose.com analyzer using direct chemiluminescent technology. Urea nitrogen [Mass/Vol] 21.0 mg/dL Normal 8.0 - 22.0 mg/dL ADM SS Urea nitrogen/Creatinine [Mass ratio] 11.2 ratio Normal 10.0 - 22.0 ratio AH ADM SS WBC (Bld) [#/Vol] 13.2 103/mcL High 4.5 - 10.8 10^3/mcL Workflow SS LABORATORYOrdered By: Yoanna Coleman on 01-31-2024 Blood Glucose Testing Reason Routine (01/31/24 7:30 AM) [facility] Glucose [Mass/Vol] 146 mg/dL High 70 - 110 mg/dL [facility] LABORATORYOrdered By: Jacqueline Ospina on 01-31-2024 FLUAV RNA ROSE+probe Ql (Resp) Negative 15 (01/31/24 4:30 AM) Normal Negative AH Auto Viro/Sero SS Comment on above: [place]: [place] [id number] FLUBV RNA ROSE+probe Ql (Resp) Negative 16 (01/31/24 4:30 AM) Normal Negative AH Auto Viro/Sero SS Comment on above: Result Comment: [place] [id number] RSV PCR Negative 17 (01/31/24 4:30 AM) Normal Negative AH Auto Viro/Sero SS Comment on above: Result Comment: [place] [id number] SARS-CoV-2 (COVID-19) RNA ROSE+probe Ql (Resp) Negative 13, 14 (01/31/24 4:30 AM) Normal Negative AH Auto Viro/Sero SS Comment on above: Result Comment: Note s [id number] Interpretive Data: T his test has been [...] 1.07 mmol/L Low 1.12 - 1.32 mmol/L [facility] Comm SS LABORATORYOrdered By: Roshan Galarza on 01-31-2024 Blood Glucose Testing Reason Routine (01/31/24 2:48 AM) [facility] Glucose [Mass/Vol] 153 mg/dL High 70 - 110 mg/dL [facility] LACon 01-31-2024 Lactic Acid Lvl 1.2 mmol/L Normal 0.5-2.2 [facility] ([place]) Comment on above: Result Comment: Spec imen hemolyzed. Results may be affected. Performed By: #### A DIFF, TROPHS, GFR, BMP, MDW, CBC, PBNP, ANEU #### [address] [address] MGon 01-31-2024 Magnesium [Mass/Vol] 1.5 mg/dL Low 1.6-2.4 [facility] ([place]) Comment on above: Performed By: #### A DIFF, TROPHS, GFR, BMP, MDW, CBC, PBNP, ANEU #### [address] [address] No Panel Informationon 01-30 Microscopic examination of blood, culture Culture has been received in lab and is no growth to date. Routine cultures are held for 5 days. [facility] Phosphate [Mass/Vol] 3.1 mg/dL Normal 2.4-5.1 [facility] ([place]) Comment on above: Result Comment: No te - New Reference Range in effect 19 Performed By: #### A DIFF, TROPHS, GFR, BMP, MDW, CBC, PBNP, ANEU #### [address] [address] PROon 01-31-2024 INR Coag (PPP) [Relative time] 1.3 {INR} Normal [facility] ([place]) Comment on above: Result Comment: [employer] (CHEST, 1992, 102:312S-25S) recommended therapeutic range for oral anticoagulant therapy is: LOW RISK: Prophylaxis of venous thrombosis INR: 2.0-3.0 Treatment of pulmonary embolism 2.0-3.0 Prevention of systemic embolism 2.0-3.0 HIGH RISK: Mechanical prosthetic valves 2.5-3.5 Performed By: #### A DIFF, TROPHS, GFR, BMP, MDW, CBC, PBNP, ANEU #### [address] [address] PT Coag (PPP) [Time] 14.7 s High 9.0-14.4 [facility] ([place]) Comment on above: Result Comment: Effe ctive 12/11/07, Protime results may be affected by some antibiotics (i.e. Ciprofloxacin, Azithromycin, Bactrim) which may potentiate the action of oral anticoagulants, with further increases in Protime/INR. Performed By: #### A DIFF, TROPHS, GFR, BMP, MDW, CBC, PBNP, ANEU #### [place] [address] [place], [place] [address] [facility] 01-31-2024 High Sensitivity Troponin I 4 ng/L Normal 0-54 [facility] ([place]) Comment on above: Result Comment: High Sensitive Troponin I Reference Ranges: Female: 0-34 ng/L Male: 0-54 ng/L Testing performed on Atell[employer] IM analyzer using direct chemiluminescent technology. Performed By: #### A DIFF, TROPHS, GFR, BMP, MDW, CBC, PBNP, ANEU #### [address] [address] .Auto Diffon 01-30-2024 Basophil, Absolute 0.2 10 3/mcL Normal 0.0-0.2 [facility] ([place]) Comment on above: Performed By: #### A DIFF, TROPHS, GFR, BMP, MDW, CBC, PBNP, ANEU #### [address] [address] Basophils/100 WBC (Bld) 1.1 % Normal 0.0-2.5 [facility] ([place]) Comment on above: Performed By: #### A DIFF, TROPHS, GFR, BMP, MDW, CBC, PBNP, ANEU #### [address] [address] Eosinophil, Absolute 0.1 10 3/mcL Normal 0.0-0.4 [facility] ([place]) Comment on above: Performed By: #### A DIFF, TROPHS, GFR, BMP, MDW, CBC, PBNP, ANEU #### [address] [address] Eosinophils/100 WBC (Bld) 0.7 % Normal 0.0-7.0 [facility] ([place]) Comment on above: Performed By: #### A DIFF, TROPHS, GFR, BMP, MDW, CBC, PBNP, ANEU #### [address] [address] Lymphocyte, Absolute 2.8 10 3/mcL Normal 0.8-3.9 [facility] ([place]) Comment on above: Performed By: #### A DIFF, TROPHS, GFR, BMP, MDW, CBC, PBNP, ANEU #### [address] [address] Lymphocytes/100 WBC (Bld) 20.2 % Normal 10.0-50.0 [facility] ([place]) Comment on above: Performed By: #### A DIFF, TROPHS, GFR, BMP, MDW, CBC, PBNP, ANEU #### [address] [address] Monocyte, Absolute 1.7 10 3/mcL High 0.2-1.0 [facility] ([place]) Comment on above: Performed By: #### A DIFF, TROPHS, GFR, BMP, MDW, CBC, PBNP, ANEU #### [address] [address] Monocytes/100 WBC (Bld) 12.2 % Normal 1.7-13.0 [facility] ([place]) Comment on above: Performed By: #### A DIFF, TROPHS, GFR, BMP, MDW, CBC, PBNP, ANEU #### [address] [address] Neutrophils/100 WBC (Bld) 65.8 % Normal 37.0-80.0 [facility] ([place]) Comment on above: Performed By: #### A DIFF, TROPHS, GFR, BMP, MDW, CBC, PBNP, ANEU #### [address] [address] .GFRon 01-30-2024 GFR 38 ml/min/1.73sqm Normal [facility] ([place]) Comment on above: Result Comment: GFR Population [...] GFR, BMP, MDW, CBC, PBNP, ANEU #### [address] [address] GFR Non- 31 ml/min/1.73sqm Normal [facility] ([place]) Comment on above: Result Comment: GFR Population [...] GFR, BMP, MDW, CBC, PBNP, ANEU #### [address] [address] .MDWon 01-30-2024 Monocyte Distribution Width 21.35 High 0.00-20.00 [facility] ([place]) Comment on above: Result Comment: For adults in ED, MDW>20.0 may be associated with a higher risk of sepsis during the first 12hrs of hospital admission Performed By: #### A DIFF, TROPHS, GFR, BMP, MDW, CBC, PBNP, ANEU #### [address] [address] .NEUABSon 01-30-2024 Neutrophil, Absolute 9.2 10 3/mcL High 2.9-6.2 [facility] ([place]) Comment on above: Performed By: #### A DIFF, TROPHS, GFR, BMP, MDW, CBC, PBNP, ANEU #### [place] [address] .Urinalysis Microscopic (AO) on 01-30-2024 UA RBC None Seen Normal None Seen [facility] ([place]) Comment on above: Performed By: #### A DIFF, TROPHS, GFR, BMP, MDW, CBC, PBNP, ANEU #### [address] [address] UA Squam Epithelial None Seen Normal None Seen [facility] ([place]) Comment on above: Performed By: #### A DIFF, TROPHS, GFR, BMP, MDW, CBC, PBNP, ANEU #### [address] [address] UA WBC 0-5 Abnormal None Seen [facility] ([place]) Comment on above: Performed By: #### A DIFF, TROPHS, GFR, BMP, MDW, CBC, PBNP, ANEU #### [address] [address] BGon 01-30-2024 Base excess Calc (Bld) [Moles/Vol] 4.3 mmol/L Normal [facility] ([place]) Comment on above: Performed By: #### A DIFF, TROPHS, GFR, BMP, MDW, CBC, PBNP, ANEU #### [address] [address] CO2 [Moles/Vol] 29.8 mmol/L Normal 22.0-30.0 [facility] ([place]) Comment on above: Performed By: #### A DIFF, TROPHS, GFR, BMP, MDW, CBC, PBNP, ANEU #### [address] [address] HCO3 (Bld) [Moles/Vol] 28.5 mmol/L Normal 21.0-29.0 [facility] ([place]) Comment on above: Performed By: #### A DIFF, TROPHS, GFR, BMP, MDW, CBC, PBNP, ANEU #### [address] [address] Oxygen (Bld) [Partial pressure] 51.0 mm[Hg] Low 74.0-108.0 [facility] ([place]) Comment on above: Performed By: #### A DIFF, TROPHS, GFR, BMP, MDW, CBC, PBNP, ANEU #### [address] [address] Oxygen saturation in Blood 88.8 % Low 92.0-96.0 [facility] ([place]) Comment on above: Performed By: #### A DIFF, TROPHS, GFR, BMP, MDW, CBC, PBNP, ANEU #### [address] [address] pCO2 41.0 mmHg Normal 32.0-46.0 [facility] ([place]) Comment on above: Performed By: #### A DIFF, TROPHS, GFR, BMP, MDW, CBC, PBNP, ANEU #### [address] [address] pH (Bld) 7.460 [pH] Normal 7.380-7.460 [facility] ([place]) Comment on above: Performed By: #### A DIFF, TROPHS, GFR, BMP, MDW, CBC, PBNP, ANEU #### [address] [address] BMPon 01-30-2024 BUN/Creatinine Ratio 8 ratio Normal 7-27 [facility] ([place]) Comment on above: Performed By: #### A DIFF, TROPHS, GFR, BMP, MDW, CBC, PBNP, ANEU #### [address] [address] Calcium [Mass/Vol] 8.8 mg/dL Normal 8.4-10.2 [facility] ([place]) Comment on above: Performed By: #### A DIFF, TROPHS, GFR, BMP, MDW, CBC, PBNP, ANEU #### [address] [address] Chloride [Moles/Vol] 97 mmol/L Low 98-107 [facility] ([place]) Comment on above: Performed By: #### A DIFF, TROPHS, GFR, BMP, MDW, CBC, PBNP, ANEU #### [address] [address] CO2 [Moles/Vol] 31 mmol/L High 22-29 [facility] ([place]) Comment on above: Performed By: #### A DIFF, TROPHS, GFR, BMP, MDW, CBC, PBNP, ANEU #### [address] [address] Creatinine [Mass/Vol] 2.22 mg/dL High 0.70-1.30 [facility] ([place]) Comment on above: Result Comment: Test ing performed on Siemens Dimension EXL analyzer using a modified kinetic Ciera technique. Performed By: #### A DIFF, TROPHS, GFR, BMP, MDW, CBC, PBNP, ANEU #### [address] [address] Electrolyte Balance 6.0 mEq/L Normal 4.0-15.0 [facility] ([place]) Comment on above: Performed By: #### A DIFF, TROPHS, GFR, BMP, MDW, CBC, PBNP, ANEU #### [address] [address] Glucose [Mass/Vol] 112 mg/dL High 70-105 [facility] ([place]) Comment on above: Performed By: #### A DIFF, TROPHS, GFR, BMP, MDW, CBC, PBNP, ANEU #### [address] [address] Potassium [Moles/Vol] 3.7 mmol/L Normal 3.5-5.1 [facility] ([place]) Comment on above: Performed By: #### A DIFF, TROPHS, GFR, BMP, MDW, CBC, PBNP, ANEU #### [address] [address] Sodium [Moles/Vol] 134 mmol/L Low 136-145 [facility] ([place]) Comment on above: Performed By: #### A DIFF, TROPHS, GFR, BMP, MDW, CBC, PBNP, ANEU #### [address] [address] Urea nitrogen [Mass/Vol] 17 mg/dL Normal 7-18 [facility] ([place]) Comment on above: Performed By: #### A DIFF, TROPHS, GFR, BMP, MDW, CBC, PBNP, ANEU #### [address] [address] CBCon 01-30-2024 Erythrocyte distribution width (RBC) [Ratio] 16.5 % High 11.5-14.5 [facility] ([place]) Comment on above: Performed By: #### A DIFF, TROPHS, GFR, BMP, MDW, CBC, PBNP, ANEU #### [address] [address] Hematocrit (Bld) [Volume fraction] 45.3 % Normal 42.0-52.0 [facility] ([place]) Comment on above: Performed By: #### A DIFF, TROPHS, GFR, BMP, MDW, CBC, PBNP, ANEU #### [address] [address] Hgb 14.9 G/dL Normal 14.0-18.0 [facility] ([place]) Comment on above: Performed By: #### A DIFF, TROPHS, GFR, BMP, MDW, CBC, PBNP, ANEU #### [address] [address] MCH (RBC) [Entitic mass] 26.6 pg Low 27.0-31.2 [facility] ([place]) Comment on above: Performed By: #### A DIFF, TROPHS, GFR, BMP, MDW, CBC, PBNP, ANEU #### [address] [address] MCHC 33.0 G/dL Normal 31.8-35.4 [facility] ([place]) Comment on above: Performed By: #### A DIFF, TROPHS, GFR, BMP, MDW, CBC, PBNP, ANEU #### [address] [address] MCV (RBC) [Entitic vol] 80.7 fL Normal 80.0-94.0 [facility] ([place]) Comment on above: Performed By: #### A DIFF, TROPHS, GFR, BMP, MDW, CBC, PBNP, ANEU #### [address] [address] Platelet 263 10 3/mcL Normal 130-400 [facility] ([place]) Comment on above: Performed By: #### A DIFF, TROPHS, GFR, BMP, MDW, CBC, PBNP, ANEU #### [address] [address] Platelet mean volume (Bld) [Entitic vol] 6.8 fL Low 7.4-10.4 [facility] ([place]) Comment on above: Performed By: #### A DIFF, TROPHS, GFR, BMP, MDW, CBC, PBNP, ANEU #### [address] [address] RBC 5.61 10 6/mcL Normal 4.04-6.13 [facility] ([place]) Comment on above: Performed By: #### A DIFF, TROPHS, GFR, BMP, MDW, CBC, PBNP, ANEU #### [address] [address] WBC 14.0 10 3/mcL High 4.6-10.8 [facility] ([place]) Comment on above: Performed By: #### A DIFF, TROPHS, GFR, BMP, MDW, CBC, PBNP, ANEU #### [address] [address] [address] HEAD OR BRAIN W/O CONTRAS Ton [...] 01/30/2024 10:16:46 PM Ordering Provider: SAMY JONES [facility] ([place]) LABORATORYOrdered By: Jil Morales on 01-30-2024 Appearance [...] ng/L Male: 0-76 ng/L Testing performed on elastic.io using a homogeneous sandwich chemiluminescent immunoassay based on Webcrunch technology. Lactate [Moles/Vol] 1.0 mmol/L Normal 0.4 [...] ng/L Male: 0-76 ng/L Testing performed on elastic.io using a homogeneous sandwich chemiluminescent immunoassay based on Webcrunch technology. Urea nitrogen [Mass/Vol] 17 mg/dL Normal [...] Lactic Acid Lvl 1.0 mmol/L Normal 0.4-2.0 [facility] ([place]) Comment on above: Performed By: #### L AC #### [address] [address] No Panel Informationon 01-29 Microscopic examination of blood, culture Culture has been received in lab and is no growth to date. Routine cultures are held for 5 days. [facility] PBNPon 01-30-2024 Natriuretic peptide B (Bld) [Mass/Vol] 1822 pg/mL High 0-125 [facility] ([place]) Comment on above: Result Comment: NT-p roBNP results of less than 300 pg/mL effectively rules out acute congestive heart failure with 99% negative predictive value. Performed By: #### A DIFF, TROPHS, GFR, BMP, MDW, CBC, PBNP, ANEU #### [place] [address] [place], [place] [address] TROPHSon 01-30-2024 High Sensitivity Troponin I 7 ng/L Normal 0-76 [facility] ([place]) Comment on above: Result Comment: High Sensitive Troponin I Reference Ranges: Female: 0-51 ng/L Male: 0-76 ng/L Testing performed on Dimension EXL using a homogeneous sandwich chemiluminescent immunoassay based on Webcrunch technology. Performed By: #### A DIFF, TROPHS, GFR, BMP, MDW, CBC, PBNP, ANEU #### [address] [address] High Sensitivity Troponin I 8 ng/L Normal 0-76 [facility] ([place]) Comment on above: Result Comment: High Sensitive Troponin I Reference Ranges: Female: 0-51 ng/L Male: 0-76 ng/L Testing performed on Dimension EXL using a homogeneous sandwich chemiluminescent immunoassay based on Webcrunch technology. Performed By: #### A DIFF, TROPHS, GFR, BMP, MDW, CBC, PBNP, ANEU #### [address] [address] UAon 01-30-2024 Color (U) Yellow Normal [facility] ([place]) Comment on above: Performed By: #### A DIFF, TROPHS, GFR, BMP, MDW, CBC, PBNP, ANEU #### [address] [address] Glucose (U) [Mass/Vol] Negative Normal Negative [facility] ([place]) Comment on above: Performed By: #### A DIFF, TROPHS, GFR, BMP, MDW, CBC, PBNP, ANEU #### [address] [address] Ketones Ql (U) Negative Normal Negative [facility] ([place]) Comment on above: Performed By: #### A DIFF, TROPHS, GFR, BMP, MDW, CBC, PBNP, ANEU #### [address] [address] UA Appear Clear Normal Clear [facility] ([place]) Comment on above: Performed By: #### A DIFF, TROPHS, GFR, BMP, MDW, CBC, PBNP, ANEU #### [address] [address] UA Bili Small Abnormal Negative [facility] ([place]) Comment on above: Performed By: #### A DIFF, TROPHS, GFR, BMP, MDW, CBC, PBNP, ANEU #### [address] [address] UA Blood Trace Abnormal Negative [facility] ([place]) Comment on above: Performed By: #### A DIFF, TROPHS, GFR, BMP, MDW, CBC, PBNP, ANEU #### [place] [address] UA Leuk Est Trace Abnormal Negative [facility] ([place]) Comment on above: Performed By: #### A DIFF, TROPHS, GFR, BMP, MDW, CBC, PBNP, ANEU #### [place] [address] UA Nitrite Negative Normal Negative [facility] ([place]) Comment on above: Performed By: #### A DIFF, TROPHS, GFR, BMP, MDW, CBC, PBNP, ANEU #### [place] [address] UA pH 6.0 Normal 5.0 - 8.0 [facility] ([place]) Comment on above: Performed By: #### A DIFF, TROPHS, GFR, BMP, MDW, CBC, PBNP, ANEU #### [place] [address] UA Protein 100 mg/dL Abnormal Negative [facility] ([place]) Comment on above: Performed By: #### A DIFF, TROPHS, GFR, BMP, MDW, CBC, PBNP, ANEU #### [place] [address] UA Spec Grav 1.025 Normal 1.015-1.025 [facility] ([place]) Comment on above: Performed By: #### A DIFF, TROPHS, GFR, BMP, MDW, CBC, PBNP, ANEU #### [place] [address] UA Specimen Type Void Normal [facility] ([place]) Comment on above: Performed By: #### A DIFF, TROPHS, GFR, BMP, MDW, CBC, PBNP, ANEU #### [place] [id number] UA Urobilinogen 1.0 E.U./dL Normal 0.2-1.0 [facility] ([place]) Comment on above: Performed By: #### A DIFF, TROPHS, GFR, BMP, MDW, CBC, PBNP, ANEU #### [place] [address] [place], [place] [address] XR CHEST 1 VIEWon 01-30-2024 XR CHEST [...] Ordering Provider: SAMY JONES Normal [facility] ([place]) .GFRon 08-08-2023 GFR Non- 105 ml/min/1.73sqm Normal [facility] ([place]) Comment on above: Result Comment: GFR Population [...] GFR, BMP, MDW, CBC, PBNP, ANEU #### [address] [address] GFR 127 ml/min/1.73sqm Normal [facility] ([place]) Comment on above: Result Comment: GFR Population [...] GFR, BMP, MDW, CBC, PBNP, ANEU #### [address] [address] A1Con 08-08-2023 HbA1c (Bld) [Mass fraction] 6.7 % High 4.3-6.4 [facility] ([place]) Comment on above: Performed By: #### A DIFF, TROPHS, GFR, BMP, MDW, CBC, PBNP, ANEU #### [address] [address] CMPon 08-08-2023 Albumin Level 3.4 G/dL Low 3.5-5.0 [facility] ([place]) Comment on above: Performed By: #### A DIFF, TROPHS, GFR, BMP, MDW, CBC, PBNP, ANEU #### [address] [address] Albumin/Globulin [Mass ratio] 0.9 {ratio} Low 1.1-2.5 [facility] ([place]) Comment on above: Performed By: #### A DIFF, TROPHS, GFR, BMP, MDW, CBC, PBNP, ANEU #### [address] [address] ALP [Catalytic activity/Vol] 87 U/L Normal 40-135 [facility] ([place]) Comment on above: Performed By: #### A DIFF, TROPHS, GFR, BMP, MDW, CBC, PBNP, ANEU #### [place] [address] ALT [Catalytic activity/Vol] 19 U/L Normal 16-63 [facility] ([place]) Comment on above: Performed By: #### A DIFF, TROPHS, GFR, BMP, MDW, CBC, PBNP, ANEU #### [place] [address] AST [Catalytic activity/Vol] 15 U/L Normal 10-40 [facility] ([place]) Comment on above: Performed By: #### A DIFF, TROPHS, GFR, BMP, MDW, CBC, PBNP, ANEU #### [place] [address] Bili Total 0.5 mg/dL Normal 0.2-1.0 [facility] ([place]) Comment on above: Result Comment: Use of this assay is not recommended for patients undergoing treatment with eltrombopag due to the potential for falsely elevated results. Performed By: #### A DIFF, TROPHS, GFR, BMP, MDW, CBC, PBNP, ANEU #### [place] [address] BUN/Creatinine Ratio 14 ratio Normal 7-27 [facility] ([place]) Comment on above: Performed By: #### A DIFF, TROPHS, GFR, BMP, MDW, CBC, PBNP, ANEU #### [place] [address] Calcium [Mass/Vol] 8.7 mg/dL Normal 8.4-10.2 [facility] ([place]) Comment on above: Performed By: #### A DIFF, TROPHS, GFR, BMP, MDW, CBC, PBNP, ANEU #### [place] [address] Chloride [Moles/Vol] 100 mmol/L Normal 98-107 [facility] ([place]) Comment on above: Performed By: #### A DIFF, TROPHS, GFR, BMP, MDW, CBC, PBNP, ANEU #### [address] [address] CO2 [Moles/Vol] 34 mmol/L High 22-29 [facility] ([place]) Comment on above: Performed By: #### A DIFF, TROPHS, GFR, BMP, MDW, CBC, PBNP, ANEU #### [address] [address] Creatinine [Mass/Vol] 0.78 mg/dL Normal 0.70-1.30 [facility] ([place]) Comment on above: Performed By: #### A DIFF, TROPHS, GFR, BMP, MDW, CBC, PBNP, ANEU #### [address] [address] Electrolyte Balance 6.0 mEq/L Normal 4.0-15.0 [facility] ([place]) Comment on above: Performed By: #### A DIFF, TROPHS, GFR, BMP, MDW, CBC, PBNP, ANEU #### [address] [address] Globulin 3.8 G/dL Normal [facility] ([place]) Comment on above: Performed By: #### A DIFF, TROPHS, GFR, BMP, MDW, CBC, PBNP, ANEU #### [address] [address] Glucose [Mass/Vol] 121 mg/dL High 70-105 [facility] ([place]) Comment on above: Performed By: #### A DIFF, TROPHS, GFR, BMP, MDW, CBC, PBNP, ANEU #### [address] [address] Potassium [Moles/Vol] 4.2 mmol/L Normal 3.5-5.1 [facility] ([place]) Comment on above: Performed By: #### A DIFF, TROPHS, GFR, BMP, MDW, CBC, PBNP, ANEU #### [address] [address] Sodium [Moles/Vol] 140 mmol/L Normal 136-145 [facility] ([place]) Comment on above: Performed By: #### A DIFF, TROPHS, GFR, BMP, MDW, CBC, PBNP, ANEU #### [address] [address] Total Protein 7.2 G/dL Normal 6.4-8.2 [facility] ([place]) Comment on above: Performed By: #### A DIFF, TROPHS, GFR, BMP, MDW, CBC, PBNP, ANEU #### [address] [address] Urea nitrogen [Mass/Vol] 11 mg/dL Normal 7-18 [facility] ([place]) Comment on above: Performed By: #### A DIFF, TROPHS, GFR, BMP, MDW, CBC, PBNP, ANEU #### [address] [address] LABORATORYOrdered By: Jr Fontaine on 08-08-2023 Albumin DL <= 20 mg/L (U) [Mass/Vol] 378 mcg/dL Invalid Interpretation Code AO ADM SS Albumin/Creatinine DL <= 20 mg/L (U) [Mass ratio] 12 mcg/mg Normal 0 - 30 mcg/mg AO ADM SS Creatinine (U) [Mass/Vol] 30.5 mg/dL Low 39.0 - 259.0 mg/dL AO ADM SS LIPIDon 08-08-2023 Cholesterol [Mass/Vol] 156 mg/dL Normal 0-200 [facility] ([place]) Comment on above: Result Comment: Chol esterol Reference Interval: Less than 200 Desirable 200-239 Borderline high risk 240 and above High risk Performed By: #### A DIFF, TROPHS, GFR, BMP, MDW, CBC, PBNP, ANEU #### [address] [address] [address] Cholesterol in HDL [Mass/Vol] 28 mg/dL Low 40-60 [facility] ([place]) Comment on above: Performed By: #### A DIFF, TROPHS, GFR, BMP, MDW, CBC, PBNP, ANEU #### [address] [address] Cholesterol in LDL [Mass/Vol] 93 mg/dL Normal 0-130 [facility] ([place]) Comment on above: Performed By: #### A DIFF, TROPHS, GFR, BMP, MDW, CBC, PBNP, ANEU #### [address] [address] Triglyceride [Mass/Vol] 175 mg/dL High 0-150 [facility] ([place]) Comment on above: Result Comment: Trig lyceride Reference Interval: Less than 150 Normal 150-199 Borderline high risk 200-499 High risk 500 or higher Very high risk Performed By: #### A DIFF, TROPHS, GFR, BMP, MDW, CBC, PBNP, ANEU #### [address] [address] MALBRon 08-08-2023 U Creatinine 30.5 mg/dL Low 39.0-259.0 [facility] ([place]) Comment on above: Performed By: #### A DIFF, TROPHS, GFR, BMP, MDW, CBC, PBNP, ANEU #### [address] [address] U Microalb 378 mcg/dL Normal [facility] ([place]) Comment on above: Performed By: #### A DIFF, TROPHS, GFR, BMP, MDW, CBC, PBNP, ANEU #### [address] [address] U Ratio Alb/Cre 12 mcg/mg Normal 0-30 [facility] ([place]) Comment on above: Performed By: #### A DIFF, TROPHS, GFR, BMP, MDW, CBC, PBNP, ANEU #### [address] [address] CVFLURVon 06-13-2023 FLU A PCR Negative Normal Negative [facility] ([place]) Comment on above: Performed By: #### A DIFF, TROPHS, GFR, BMP, MDW, CBC, PBNP, ANEU #### [address] [place], [place] [address] FLU B PCR Negative Normal Negative [facility] ([place]) Comment on above: Performed By: #### A DIFF, TROPHS, GFR, BMP, MDW, CBC, PBNP, ANEU #### [address] [place], [place] [address] RSV PCR Negative Normal Negative [facility] ([place]) Comment on above: Performed By: #### A DIFF, TROPHS, GFR, BMP, MDW, CBC, PBNP, ANEU #### [address] [place], [place] [address] SARS-CoV-2 (COVID-19) RNA ROSE+probe Ql (Unsp spec) Negative Normal Negative [facility] ([place]) Comment on above: Result Comment: This test [...] GFR, BMP, MDW, CBC, PBNP, ANEU #### [address] [place], [place] [address] LABORATORYOrdered By: Giovana Fischer on 06-13-2023 FLUAV [...] AM Ordering Provider: DEMI Kate [facility] ([place]) .Auto Diffon 06-09-2023 Basophil, Absolute 0.1 10 3/mcL Normal 0.0-0.3 [facility] ([place]) Comment on above: Performed By: #### A DIFF, TROPHS, GFR, BMP, MDW, CBC, PBNP, ANEU #### [address] [address] Basophils/100 WBC (Bld) 0.8 % Normal 0.0-2.5 [facility] ([place]) Comment on above: Performed By: #### A DIFF, TROPHS, GFR, BMP, MDW, CBC, PBNP, ANEU #### [address] [address] Eosinophil, Absolute 0.1 10 3/mcL Normal 0.0-0.7 [facility] ([place]) Comment on above: Performed By: #### A DIFF, TROPHS, GFR, BMP, MDW, CBC, PBNP, ANEU #### [address] [address] Eosinophils/100 WBC (Bld) 2.0 % Normal 0.0-6.0 [facility] ([place]) Comment on above: Performed By: #### A DIFF, TROPHS, GFR, BMP, MDW, CBC, PBNP, ANEU #### [address] [address] Lymphocyte, Absolute 1.0 10 3/mcL Normal 0.9-4.3 [facility] ([place]) Comment on above: Performed By: #### A DIFF, TROPHS, GFR, BMP, MDW, CBC, PBNP, ANEU #### [address] [address] Lymphocytes/100 WBC (Bld) 15.5 % Low 20.0-40.0 [facility] ([place]) Comment on above: Performed By: #### A DIFF, TROPHS, GFR, BMP, MDW, CBC, PBNP, ANEU #### [address] [address] Monocyte, Absolute 0.7 10 3/mcL Normal 0.1-1.4 [facility] ([place]) Comment on above: Performed By: #### A DIFF, TROPHS, GFR, BMP, MDW, CBC, PBNP, ANEU #### [address] [address] Monocytes/100 WBC (Bld) 11.1 % Normal 2.0-13.0 [facility] ([place]) Comment on above: Performed By: #### A DIFF, TROPHS, GFR, BMP, MDW, CBC, PBNP, ANEU #### [address] [address] Neutrophils/100 WBC (Bld) 70.6 % Normal 50.0-75.0 [facility] ([place]) Comment on above: Performed By: #### A DIFF, TROPHS, GFR, BMP, MDW, CBC, PBNP, ANEU #### [address] [address] .GFRon 06-09-2023 GFR Non- >60 Normal [facility] ([place]) Comment on above: Result Comment: GFR Population [...] GFR, BMP, MDW, CBC, PBNP, ANEU #### [address] [address] GFR >60 Normal [facility] ([place]) Comment on above: Result Comment: GFR Population [...] GFR, BMP, MDW, CBC, PBNP, ANEU #### [address] [address] .NEUABSon 06-09-2023 Neutrophil, Absolute 4.7 10 3/mcL Normal 2.3-8.1 [facility]) Comment on above: Performed By: #### A DIFF, TROPHS, GFR, BMP, MDW, CBC, PBNP, ANEU #### [address] [address] BMPon 06-09-2023 BUN/Creatinine Ratio 11.8 ratio Normal 10.0-22.0 [facility] ([place]) Comment on above: Performed By: #### A DIFF, TROPHS, GFR, BMP, MDW, CBC, PBNP, ANEU #### [address] [address] Calcium [Mass/Vol] 9.0 mg/dL Normal 8.7-10.4 [facility] ([place]) Comment on above: Performed By: #### A DIFF, TROPHS, GFR, BMP, MDW, CBC, PBNP, ANEU #### [address] [address] Chloride [Moles/Vol] 102 mmol/L Normal 98-110 [facility] ([place]) Comment on above: Performed By: #### A DIFF, TROPHS, GFR, BMP, MDW, CBC, PBNP, ANEU #### [address] [address] CO2 [Moles/Vol] 35 mmol/L High 22-32 [facility] ([place]) Comment on above: Performed By: #### A DIFF, TROPHS, GFR, BMP, MDW, CBC, PBNP, ANEU #### [address] [address] Creatinine [Mass/Vol] 0.85 mg/dL Normal 0.60-1.40 [facility] ([place]) Comment on above: Performed By: #### A DIFF, TROPHS, GFR, BMP, MDW, CBC, PBNP, ANEU #### [address] [address] Electrolyte Balance 0.0 mEq/L Low 4.0-15.0 [facility] ([place]) Comment on above: Performed By: #### A DIFF, TROPHS, GFR, BMP, MDW, CBC, PBNP, ANEU #### [address] [address] Glucose [Mass/Vol] 146 mg/dL High 70-110 [facility] ([place]) Comment on above: Performed By: #### A DIFF, TROPHS, GFR, BMP, MDW, CBC, PBNP, ANEU #### [address] [address] Potassium [Moles/Vol] 4.8 mmol/L Normal 3.5-5.0 [facility] ([place]) Comment on above: Performed By: #### A DIFF, TROPHS, GFR, BMP, MDW, CBC, PBNP, ANEU #### [address] [address] Sodium [Moles/Vol] 137 mmol/L Normal 136-145 [facility] ([place]) Comment on above: Performed By: #### A DIFF, TROPHS, GFR, BMP, MDW, CBC, PBNP, ANEU #### [address] [address] Urea nitrogen [Mass/Vol] 10.0 mg/dL Normal 8.0-22.0 [facility] ([place]) Comment on above: Result Comment: Spec imen hemolyzed. Results may be falsely elevated. Performed By: #### A DIFF, TROPHS, GFR, BMP, MDW, CBC, PBNP, ANEU #### [address] [address] CBCon 06-09-2023 Erythrocyte distribution width (RBC) [Ratio] 13.3 % Normal 11.5-15.5 [facility] ([place]) Comment on above: Performed By: #### A DIFF, TROPHS, GFR, BMP, MDW, CBC, PBNP, ANEU #### [address] [place] [address] Hematocrit (Bld) [Volume fraction] 45.9 % Normal 40.0-52.0 [facility] ([place]) Comment on above: Performed By: #### A DIFF, TROPHS, GFR, BMP, MDW, CBC, PBNP, ANEU #### [address] [place] [address] Hgb 15.6 G/dL Normal 13.0-17.5 [facility] ([place]) Comment on above: Performed By: #### A DIFF, TROPHS, GFR, BMP, MDW, CBC, PBNP, ANEU #### [address] [address] MCH (RBC) [Entitic mass] 29.0 pg Normal 27.0-33.0 [facility] ([place]) Comment on above: Performed By: #### A DIFF, TROPHS, GFR, BMP, MDW, CBC, PBNP, ANEU #### [address] [address] MCHC 33.9 G/dL Normal 32.0-36.0 [facility] ([place]) Comment on above: Performed By: #### A DIFF, TROPHS, GFR, BMP, MDW, CBC, PBNP, ANEU #### [place] [id number] MCV (RBC) [Entitic vol] 85.5 fL Normal 81.0-100.0 [facility] ([place]) Comment on above: Performed By: #### A DIFF, TROPHS, GFR, BMP, MDW, CBC, PBNP, ANEU #### [address] [address] Platelet 174 10 3/mcL Normal 150-450 [facility] ([place]) Comment on above: Performed By: #### A DIFF, TROPHS, GFR, BMP, MDW, CBC, PBNP, ANEU #### [address] [address] Platelet mean volume (Bld) [Entitic vol] 7.5 fL Normal 6.4-10.5 [facility] ([place]) Comment on above: Performed By: #### A DIFF, TROPHS, GFR, BMP, MDW, CBC, PBNP, ANEU #### [address] [address] RBC 5.37 10 6/mcL Normal 4.50-6.00 [facility] ([place]) Comment on above: Performed By: #### A DIFF, TROPHS, GFR, BMP, MDW, CBC, PBNP, ANEU #### [address] [address] WBC 6.6 10 3/mcL Normal 4.5-10.8 [facility] ([place]) Comment on above: Performed By: #### A DIFF, TROPHS, GFR, BMP, MDW, CBC, PBNP, ANEU #### [address] [address] LABORATORYOrdered By: Adenike Swain on 06-09-2023 Blood Glucose Testing Reason Routine (06/09/23 4:18 PM) [facility] Glucose [Mass/Vol] 114 mg/dL High 70 - 110 mg/dL [facility] LABORATORYOrdered By: Cris Jang on 06-09-2023 Blood Glucose Testing Reason Routine (06/09/23 7:51 AM) [facility] Glucose [Mass/Vol] 142 mg/dL High 70 - 110 mg/dL [facility] LABORATORYOrdered By: SYSTEM SYSTEM on 06-09-2023 [...] 06-09-2023 Magnesium [Mass/Vol] 2.1 mg/dL Normal 1.6-2.4 [facility] ([place]) Comment on above: Performed By: #### A DIFF, TROPHS, GFR, BMP, MDW, CBC, PBNP, ANEU #### [address] [address] .Auto Diffon 06-08-2023 Basophil, Absolute 0.1 10 3/mcL Normal 0.0-0.3 [facility] ([place]) Comment on above: Performed By: #### A DIFF, TROPHS, GFR, BMP, MDW, CBC, PBNP, ANEU #### [address] [address] Basophils/100 WBC (Bld) 0.7 % Normal 0.0-2.5 [facility] ([place]) Comment on above: Performed By: #### A DIFF, TROPHS, GFR, BMP, MDW, CBC, PBNP, ANEU #### [address] [address] Eosinophil, Absolute 0.1 10 3/mcL Normal 0.0-0.7 [facility] ([place]) Comment on above: Performed By: #### A DIFF, TROPHS, GFR, BMP, MDW, CBC, PBNP, ANEU #### [address] [address] Eosinophils/100 WBC (Bld) 1.9 % Normal 0.0-6.0 [facility] ([place]) Comment on above: Performed By: #### A DIFF, TROPHS, GFR, BMP, MDW, CBC, PBNP, ANEU #### [address] [address] Lymphocyte, Absolute 1.3 10 3/mcL Normal 0.9-4.3 [facility] ([place]) Comment on above: Performed By: #### A DIFF, TROPHS, GFR, BMP, MDW, CBC, PBNP, ANEU #### [address] [address] Lymphocytes/100 WBC (Bld) 16.1 % Low 20.0-40.0 [facility] ([place]) Comment on above: Performed By: #### A DIFF, TROPHS, GFR, BMP, MDW, CBC, PBNP, ANEU #### [address] [address] Monocyte, Absolute 0.8 10 3/mcL Normal 0.1-1.4 [facility] ([place]) Comment on above: Performed By: #### A DIFF, TROPHS, GFR, BMP, MDW, CBC, PBNP, ANEU #### [address] [address] Monocytes/100 WBC (Bld) 9.9 % Normal 2.0-13.0 [facility] ([place]) Comment on above: Performed By: #### A DIFF, TROPHS, GFR, BMP, MDW, CBC, PBNP, ANEU #### [address] [address] Neutrophils/100 WBC (Bld) 71.4 % Normal 50.0-75.0 [facility] ([place]) Comment on above: Performed By: #### A DIFF, TROPHS, GFR, BMP, MDW, CBC, PBNP, ANEU #### [address] [address] .GFRon 06-08-2023 GFR >60 Normal [facility] ([place]) Comment on above: Result Comment: GFR Population [...] GFR, BMP, MDW, CBC, PBNP, ANEU #### [address] [address] GFR Non- >60 Normal [facility] ([place]) Comment on above: Result Comment: GFR Population [...] GFR, BMP, MDW, CBC, PBNP, ANEU #### [address] [address] .NEUABSon 06-08-2023 Neutrophil, Absolute 5.7 10 3/mcL Normal 2.3-8.1 [facility] ([place]) Comment on above: Performed By: #### A DIFF, TROPHS, GFR, BMP, MDW, CBC, PBNP, ANEU #### [address] [address] BMPon 06-08-2023 BUN/Creatinine Ratio 10.7 ratio Normal 10.0-22.0 [facility] ([place]) Comment on above: Performed By: #### A DIFF, TROPHS, GFR, BMP, MDW, CBC, PBNP, ANEU #### [place] [id number] Calcium [Mass/Vol] 8.9 mg/dL Normal 8.7-10.4 [facility] ([place]) Comment on above: Performed By: #### A DIFF, TROPHS, GFR, BMP, MDW, CBC, PBNP, ANEU #### [address] [address] Chloride [Moles/Vol] 100 mmol/L Normal 98-110 [facility] ([place]) Comment on above: Performed By: #### A DIFF, TROPHS, GFR, BMP, MDW, CBC, PBNP, ANEU #### [address] [address] CO2 [Moles/Vol] 36 mmol/L High 22-32 [facility] ([place]) Comment on above: Performed By: #### A DIFF, TROPHS, GFR, BMP, MDW, CBC, PBNP, ANEU #### [address] [address] Creatinine [Mass/Vol] 0.75 mg/dL Normal 0.60-1.40 [facility] ([place]) Comment on above: Performed By: #### A DIFF, TROPHS, GFR, BMP, MDW, CBC, PBNP, ANEU #### [address] [address] Electrolyte Balance 1.0 mEq/L Low 4.0-15.0 [facility] ([place]) Comment on above: Performed By: #### A DIFF, TROPHS, GFR, BMP, MDW, CBC, PBNP, ANEU #### [address] [address] Glucose [Mass/Vol] 160 mg/dL High 70-110 [facility] ([place]) Comment on above: Performed By: #### A DIFF, TROPHS, GFR, BMP, MDW, CBC, PBNP, ANEU #### [address] [address] Potassium [Moles/Vol] 3.4 mmol/L Low 3.5-5.0 [facility] ([place]) Comment on above: Result Comment: Spec imen slightly hemolyzed. Performed By: #### A DIFF, TROPHS, GFR, BMP, MDW, CBC, PBNP, ANEU #### [address] [address] Sodium [Moles/Vol] 137 mmol/L Normal 136-145 [facility] ([place]) Comment on above: Performed By: #### A DIFF, TROPHS, GFR, BMP, MDW, CBC, PBNP, ANEU #### [address] [address] Urea nitrogen [Mass/Vol] 8.0 mg/dL Normal 8.0-22.0 [facility] ([place]) Comment on above: Performed By: #### A DIFF, TROPHS, GFR, BMP, MDW, CBC, PBNP, ANEU #### [address] [address] CBCon 06-08-2023 Erythrocyte distribution width (RBC) [Ratio] 13.1 % Normal 11.5-15.5 [facility] ([place]) Comment on above: Performed By: #### A DIFF, TROPHS, GFR, BMP, MDW, CBC, PBNP, ANEU #### [address] [address] Hematocrit (Bld) [Volume fraction] 45.7 % Normal 40.0-52.0 [facility] ([place]) Comment on above: Performed By: #### A DIFF, TROPHS, GFR, BMP, MDW, CBC, PBNP, ANEU #### [address] [address] Hgb 15.6 G/dL Normal 13.0-17.5 [facility] ([place]) Comment on above: Performed By: #### A DIFF, TROPHS, GFR, BMP, MDW, CBC, PBNP, ANEU #### [place] [address] MCH (RBC) [Entitic mass] 29.1 pg Normal 27.0-33.0 [facility] ([place]) Comment on above: Performed By: #### A DIFF, TROPHS, GFR, BMP, MDW, CBC, PBNP, ANEU #### [address] [address] MCHC 34.3 G/dL Normal 32.0-36.0 [facility] ([place]) Comment on above: Performed By: #### A DIFF, TROPHS, GFR, BMP, MDW, CBC, PBNP, ANEU #### [address] [address] MCV (RBC) [Entitic vol] 85.0 fL Normal 81.0-100.0 [facility] ([place]) Comment on above: Performed By: #### A DIFF, TROPHS, GFR, BMP, MDW, CBC, PBNP, ANEU #### [place] [address] Platelet 200 10 3/mcL Normal 150-450 [facility] ([place]) Comment on above: Performed By: #### A DIFF, TROPHS, GFR, BMP, MDW, CBC, PBNP, ANEU #### [address] [address] Platelet mean volume (Bld) [Entitic vol] 7.5 fL Normal 6.4-10.5 [facility] ([place]) Comment on above: Performed By: #### A DIFF, TROPHS, GFR, BMP, MDW, CBC, PBNP, ANEU #### [facility] [address] [place], [place] [address] RBC 5.37 10 6/mcL Normal 4.50-6.00 [facility] ([place]) Comment on above: Performed By: #### A DIFF, TROPHS, GFR, BMP, MDW, CBC, PBNP, ANEU #### [facility] [address] [place], [place] [address] WBC 7.9 10 3/mcL Normal 4.5-10.8 [facility] ([place]) Comment on above: Performed By: #### A DIFF, TROPHS, GFR, BMP, MDW, CBC, PBNP, ANEU #### [address] [place], [place] [address] LABORATORYOrdered By: Adenike Swain on 06-08-2023 Blood Glucose Testing Reason Routine (06/08/23 9:18 PM) [facility] Glucose [Mass/Vol] 173 mg/dL High 70 - 110 mg/dL [facility] LABORATORYOrdered By: SYSTEM SYSTEM on 06-08-2023 [...] 13.1 % Normal 11.5 - 15.5 % [facility] GFR/1.73 sq M.predicted among blacks MDRD (S/P/Bld) [Vol rate/Area] ml/min/1.73sqm Invalid Interpretation Code [facility] Comment on above: Interpretive Data: GFR [...] (S/P/Bld) [Vol rate/Area] ml/min/1.73sqm Invalid Interpretation Code [facility] Comment on above: Interpretive Data: GFR [...] 160 mg/dL High 70 - 110 mg/dL [facility] Hematocrit (Bld) [Volume fraction] 45.7 % Normal 40.0 - 52.0 % [facility] Hemoglobin (Bld) [Mass/Vol] 15.6 G/dL Normal 13.0 - 17.5 G/dL [facility] Lymphocytes (Bld) [#/Vol] 1.3 103/mcL Normal 0.9 [...] 06-08-2023 Magnesium [Mass/Vol] 2.1 mg/dL Normal 1.6-2.4 [facility] ([place]) Comment on above: Performed By: #### A DIFF, TROPHS, GFR, BMP, MDW, CBC, PBNP, ANEU #### [address] [address] .Auto Diffon 06-07-2023 Basophil, Absolute 0.1 10 3/mcL Normal 0.0-0.3 [facility] ([place]) Comment on above: Performed By: #### A DIFF, TROPHS, GFR, BMP, MDW, CBC, PBNP, ANEU #### [address] [address] Basophils/100 WBC (Bld) 0.6 % Normal 0.0-2.5 [facility] ([place]) Comment on above: Performed By: #### A DIFF, TROPHS, GFR, BMP, MDW, CBC, PBNP, ANEU #### [address] [address] Eosinophil, Absolute 0.2 10 3/mcL Normal 0.0-0.7 [facility] ([place]) Comment on above: Performed By: #### A DIFF, TROPHS, GFR, BMP, MDW, CBC, PBNP, ANEU #### [address] [address] Eosinophils/100 WBC (Bld) 1.6 % Normal 0.0-6.0 [facility] ([place]) Comment on above: Performed By: #### A DIFF, TROPHS, GFR, BMP, MDW, CBC, PBNP, ANEU #### [address] [address] Lymphocyte, Absolute 1.4 10 3/mcL Normal 0.9-4.3 [facility] ([place]) Comment on above: Performed By: #### A DIFF, TROPHS, GFR, BMP, MDW, CBC, PBNP, ANEU #### [address] [address] Lymphocytes/100 WBC (Bld) 14.0 % Low 20.0-40.0 [facility] ([place]) Comment on above: Performed By: #### A DIFF, TROPHS, GFR, BMP, MDW, CBC, PBNP, ANEU #### [address] [address] Monocyte, Absolute 0.6 10 3/mcL Normal 0.1-1.4 [facility] ([place]) Comment on above: Performed By: #### A DIFF, TROPHS, GFR, BMP, MDW, CBC, PBNP, ANEU #### [address] [address] Monocytes/100 WBC (Bld) 6.4 % Normal 2.0-13.0 [facility] ([place]) Comment on above: Performed By: #### A DIFF, TROPHS, GFR, BMP, MDW, CBC, PBNP, ANEU #### [address] [address] Neutrophils/100 WBC (Bld) 77.4 % High 50.0-75.0 [facility] ([place]) Comment on above: Performed By: #### A DIFF, TROPHS, GFR, BMP, MDW, CBC, PBNP, ANEU #### [address] [address] .GFRon 06-07-2023 GFR >60 Normal [facility] ([place]) Comment on above: Result Comment: GFR Population [...] GFR, BMP, MDW, CBC, PBNP, ANEU #### [address] [address] GFR Non- >60 Normal [facility] ([place]) Comment on above: Result Comment: GFR Population [...] GFR, BMP, MDW, CBC, PBNP, ANEU #### [address] [address] .NEUABSon 06-07-2023 Neutrophil, Absolute 7.7 10 3/mcL Normal 2.3-8.1 [facility] ([place]) Comment on above: Performed By: #### A DIFF, TROPHS, GFR, BMP, MDW, CBC, PBNP, ANEU #### [address] [address] CBCon 06-07-2023 Erythrocyte distribution width (RBC) [Ratio] 14.0 % Normal 11.5-15.5 [facility] ([place]) Comment on above: Performed By: #### A DIFF, TROPHS, GFR, BMP, MDW, CBC, PBNP, ANEU #### [address] [address] Hematocrit (Bld) [Volume fraction] 47.6 % Normal 40.0-52.0 [facility] ([place]) Comment on above: Performed By: #### A DIFF, TROPHS, GFR, BMP, MDW, CBC, PBNP, ANEU #### [address] [address] Hgb 16.3 G/dL Normal 13.0-17.5 [facility] ([place]) Comment on above: Performed By: #### A DIFF, TROPHS, GFR, BMP, MDW, CBC, PBNP, ANEU #### [address] [address] MCH (RBC) [Entitic mass] 29.1 pg Normal 27.0-33.0 [facility] ([place]) Comment on above: Performed By: #### A DIFF, TROPHS, GFR, BMP, MDW, CBC, PBNP, ANEU #### [address] [address] MCHC 34.2 G/dL Normal 32.0-36.0 [facility] ([place]) Comment on above: Performed By: #### A DIFF, TROPHS, GFR, BMP, MDW, CBC, PBNP, ANEU #### [address] [address] MCV (RBC) [Entitic vol] 84.9 fL Normal 81.0-100.0 [facility] ([place]) Comment on above: Performed By: #### A DIFF, TROPHS, GFR, BMP, MDW, CBC, PBNP, ANEU #### [address] [address] Platelet 228 10 3/mcL Normal 150-450 [facility] ([place]) Comment on above: Performed By: #### A DIFF, TROPHS, GFR, BMP, MDW, CBC, PBNP, ANEU #### [address] [address] Platelet mean volume (Bld) [Entitic vol] 8.0 fL Normal 6.4-10.5 [facility] ([place]) Comment on above: Performed By: #### A DIFF, TROPHS, GFR, BMP, MDW, CBC, PBNP, ANEU #### [place] [id number] RBC 5.61 10 6/mcL Normal 4.50-6.00 [facility] ([place]) Comment on above: Performed By: #### A DIFF, TROPHS, GFR, BMP, MDW, CBC, PBNP, ANEU #### [address] [address] WBC 9.9 10 3/mcL Normal 4.5-10.8 [facility] ([place]) Comment on above: Performed By: #### A DIFF, TROPHS, GFR, BMP, MDW, CBC, PBNP, ANEU #### [address] [address] CMPon 06-07-2023 Albumin Level 3.3 G/dL Normal 3.2-4.8 [facility] ([place]) Comment on above: Order Comment: hemol yzed. needs redrawn Performed By: #### A DIFF, TROPHS, GFR, BMP, MDW, CBC, PBNP, ANEU #### [address] [address] Albumin/Globulin [Mass ratio] 0.9 {ratio} Normal 0.9-1.6 [facility] ([place]) Comment on above: Order Comment: hemol yzed. needs redrawn Performed By: #### A DIFF, TROPHS, GFR, BMP, MDW, CBC, PBNP, ANEU #### [address] [address] ALP [Catalytic activity/Vol] 93 U/L Normal 38-126 [facility] ([place]) Comment on above: Order Comment: hemol yzed. needs redrawn Performed By: #### A DIFF, TROPHS, GFR, BMP, MDW, CBC, PBNP, ANEU #### [address] [address] ALT [Catalytic activity/Vol] 13 U/L Normal 12-55 [facility] ([place]) Comment on above: Order Comment: hemol yzed. needs redrawn Performed By: #### A DIFF, TROPHS, GFR, BMP, MDW, CBC, PBNP, ANEU #### [address] [address] AST [Catalytic activity/Vol] 13 U/L Normal 8-34 [facility] ([place]) Comment on above: Order Comment: hemol yzed. needs redrawn Performed By: #### A DIFF, TROPHS, GFR, BMP, MDW, CBC, PBNP, ANEU #### [address] [address] Bili Total 0.30 mg/dL Normal 0.20-1.20 [facility] ([place]) Comment on above: Order Comment: hemol yzed. needs redrawn Result Comment: Use of this assay is not recommended for patients undergoing treatment with eltrombopag due to the potential for falsely elevated results. Performed By: #### A DIFF, TROPHS, GFR, BMP, MDW, CBC, PBNP, ANEU #### [address] [address] BUN/Creatinine Ratio 10.8 ratio Normal 10.0-22.0 [facility] ([place]) Comment on above: Order Comment: hemol yzed. needs redrawn Performed By: #### A DIFF, TROPHS, GFR, BMP, MDW, CBC, PBNP, ANEU #### [address] [address] Calcium [Mass/Vol] 8.8 mg/dL Normal 8.7-10.4 [facility] ([place]) Comment on above: Order Comment: hemol yzed. needs redrawn Performed By: #### A DIFF, TROPHS, GFR, BMP, MDW, CBC, PBNP, ANEU #### [address] [address] Chloride [Moles/Vol] 97 mmol/L Low 98-110 [facility] ([place]) Comment on above: Order Comment: hemol yzed. needs redrawn Performed By: #### A DIFF, TROPHS, GFR, BMP, MDW, CBC, PBNP, ANEU #### [address] [address] CO2 [Moles/Vol] 37 mmol/L High 22-32 [facility] ([place]) Comment on above: Order Comment: hemol yzed. needs redrawn Performed By: #### A DIFF, TROPHS, GFR, BMP, MDW, CBC, PBNP, ANEU #### [address] [address] Creatinine [Mass/Vol] 0.93 mg/dL Normal 0.60-1.40 [facility] ([place]) Comment on above: Order Comment: hemol yzed. needs redrawn Performed By: #### A DIFF, TROPHS, GFR, BMP, MDW, CBC, PBNP, ANEU #### [address] [address] Electrolyte Balance 3.0 mEq/L Low 4.0-15.0 [facility] ([place]) Comment on above: Order Comment: hemol yzed. needs redrawn Performed By: #### A DIFF, TROPHS, GFR, BMP, MDW, CBC, PBNP, ANEU #### [address] [address] Globulin 3.6 G/dL Normal 1.5-3.8 [facility] ([place]) Comment on above: Order Comment: hemol yzed. needs redrawn Performed By: #### A DIFF, TROPHS, GFR, BMP, MDW, CBC, PBNP, ANEU #### [address] [address] Glucose [Mass/Vol] 209 mg/dL High 70-110 [facility] ([place]) Comment on above: Order Comment: hemol yzed. needs redrawn Performed By: #### A DIFF, TROPHS, GFR, BMP, MDW, CBC, PBNP, ANEU #### [address] [address] Potassium [Moles/Vol] 3.6 mmol/L Normal 3.5-5.0 [facility] ([place]) Comment on above: Order Comment: hemol yzed. needs redrawn Result Comment: Spec imen slightly hemolyzed. Performed By: #### A DIFF, TROPHS, GFR, BMP, MDW, CBC, PBNP, ANEU #### [address] [address] Sodium [Moles/Vol] 137 mmol/L Normal 136-145 [facility] ([place]) Comment on above: Order Comment: hemol yzed. needs redrawn Performed By: #### A DIFF, TROPHS, GFR, BMP, MDW, CBC, PBNP, ANEU #### [address] [address] Total Protein 6.9 G/dL Normal 5.7-8.2 [facility] ([place]) Comment on above: Order Comment: hemol yzed. needs redrawn Result Comment: No te - New Reference Range in effect 19 Performed By: #### A DIFF, TROPHS, GFR, BMP, MDW, CBC, PBNP, ANEU #### [address] [place], [place] [address] Urea nitrogen [Mass/Vol] 10.0 mg/dL Normal 8.0-22.0 [facility] ([place]) Comment on above: Order Comment: hemol yzed. needs redrawn Performed By: #### A DIFF, TROPHS, GFR, BMP, MDW, CBC, PBNP, ANEU #### [address] [address] LABORATORYOrdered By: SYSTEM SYSTEM on 06-07-2023 Albumin [...] (S/P/Bld) [Vol rate/Area] ml/min/1.73sqm Invalid Interpretation Code [facility] Comment on above: Interpretive Data: GFR [...] (S/P/Bld) [Vol rate/Area] ml/min/1.73sqm Invalid Interpretation Code [facility] Comment on above: Interpretive Data: GFR [...] 06-07-2023 Magnesium [Mass/Vol] 1.7 mg/dL Normal 1.6-2.4 [facility] ([place]) Comment on above: Performed By: #### A DIFF, TROPHS, GFR, BMP, MDW, CBC, PBNP, ANEU #### [address] [address] XR CHEST 1 VIEWon 05-05-2023 XR CHEST [...] 9:17:04 PM Ordering Provider: DEMI [facility] ([place]) XR RIBS 2 VIEWS RIGHTon 0 XR [...] Date: 05/05/2023 9:08:30 PM Ordering Provider: DEMI [facility] ([place]) PBNPon 03-22-2023 Natriuretic peptide B (Bld) [Mass/Vol] 378 pg/mL High 0-125 [facility] ([place]) Comment on above: Result Comment: NT-p roBNP results of less than 300 pg/mL effectively rules out acute congestive heart failure with 99% negative predictive value. Performed By: #### A DIFF, TROPHS, GFR, BMP, MDW, CBC, PBNP, ANEU #### [address] [place], [place] [address] Influenza virus A and B and SARS-CoV-2 (COVID-19) Ag panel - Upper respiratory specimOrdered By: Nguyễn Al on 02-12-2023 SARS-CoV-2 (COVID-19) RNA ROSE+probe Ql (Resp) [facility] LABORATORYOrdered By: SYSTEM SYSTEM on 12-23-2022 [...] Auto (Unsp spec) [#/Vol] 1.50 10*3/uL 0.83-4.51 [facility] Basophil percentageOrdered B y: Dr. Brown on 10-23-2022 Basophils/100 WBC (Bld) 0.8 % 0-1 [facility] Chloride [Moles/Vol] 102 mmol/L 98-107 [facility] Eosinophils/100 WBC (Bld) 2.4 % 0-5 [facility] Glucose [Mass/Vol] 126 mg/dL 74-106 [facility] Comment on above: Fasting Glucose resu lt greater than or equal to 126 mg/dL suggests DIABETES MELLITUS per A.D.A. criteria. Neutrophils (Bld) [#/Vol] 5.4 10*3/uL 2.0-7.7 [facility] Neutrophils/100 WBC (Bld) 67.9 % 47-70 [facility] Potassium [Moles/Vol] 3.2 mmol/L 3.5-5.1 [facility] [place] Sodium [Moles/Vol] 140 mmol/L 136-145 [facility] WBC (Bld) [#/Vol] 7.9 10*3/uL 4.4-11.0 [facility] Blood erythrocytes count (nu mber/volume)Ordered By: Dr. Brown on 10-23-2022 RBC (Bld) [#/Vol] 6.06 10*6/uL 4.6-6.2 [facility] Blood hemoglobin measurement (mass/volume)Ordered By: Dr. Brown on 10-23-2022 Hemoglobin (Bld) [Mass/Vol] 17.2 g/dL 13.0-16.5 [facility] Blood lymphocytes/100 leukoc ytesOrdered By: Dr. Brown on 10-23-2022 Lymphocytes/100 WBC (Bld) 19.0 % 19-41 [facility] Blood monocytes/100 leukocyt esOrdered By: Dr. Brown on 10-23-2022 Monocytes/100 WBC (Bld) 9.6 % 0-10 [facility] Blood platelet mean volumeOr dered By: Dr. Brown on 10-23-2022 Platelet mean volume (Bld) [Entitic vol] 10.3 fL 6.2-12.0 [facility] Determination of erythrocyte mean corpuscular volume (MCV)Ordered By: Dr. Brown on 10-23-2022 MCV (RBC) [Entitic vol] 89.6 fL 80-94 [facility] Hematocrit Auto (Bld) [Volum e fraction]Ordered By: Dr. Brown on 10-23-2022 Hematocrit (Bld) [Volume fraction] 54.3 % 40-54 [facility] Laboratory - Chemistry and C hemistry - challengeOrdered By: Dr. Brown on 10-23-2022 CO2 [Moles/Vol] 32.0 mmol/L 21.0-32.0 [facility] Natriuretic peptide B (Bld) [Mass/Vol] 182.2 pg/mL 0-100 [facility] Urea nitrogen/Creatinine [Mass ratio] 13.0 mg/mg 10-20 [facility] - Hematology and Cell countsOrdered By: Dr. Brown on 10-23-2022 Erythrocyte distribution width (RBC) [Entitic vol] 46.1 fL 35.1-43.9 [facility] Erythrocyte distribution width (RBC) [Ratio] 14.1 % 11.6-14.6 [facility] Immature granulocytes/100 WBC (Bld) 0.300 % 0.0-0.9 [facility] Comment on above: IG% - Immature Granu locytes (promyelocytes, myelocytes and metamyelocytes) > 1% indicates that a LEFT SHIFT is Present. MCH (RBC) [Entitic mass] 28.4 pg 27.0-32.0 [facility] Nucleated RBC/100 WBC (Bld) [Ratio] 0 % 0-5 [facility] MCHC Auto (RBC) [Mass/Vol]Or dered By: Dr. Brown on 10-23-2022 MCHC (RBC) [Mass/Vol] 31.7 g/dL 32-36 [facility] [place] No Panel InformationOrdered By: Dr. Brown on 10-23-2022 Troponin I High Sensitivity 14 pg/mL 3.0-78.0 [facility] Comment on above: Please Note: New Faye t Units and Gender Specific Reference Ranges. For more information see Policy Stat Procedure [place] High Sensitivity Troponin (TNIH) and attachments. Estimated Creatinine Clearance Calc 104.04 ml/min [facility] Estimated GFR (MDRD) Amer 123 mL/min >60 [facility] Comment on above: GFR Calc Estimated GFR (MDRD) Non-Af Amer 102 mL/min >60 [facility] Comment on above: Non- GFR Calc Platelets bldOrdered By: Dr. Brown on 10-23-2022 Platelets (Bld) [#/Vol] 234 10*3/uL 150-450 [facility] Serum or plasma calcium scott urement (mass/volume)Ordered By: Dr. Brown on 10-23-2022 Calcium [Mass/Vol] 8.7 mg/dL 8.5-10.1 [facility] Serum or plasma creatinine m easurement (mass/volume)Ordered By: Dr. Brown on 10-23-2022 Creatinine [Mass/Vol] 0.84 mg/dL 0.70-1.30 [facility] [place] Comment on above: The validity of the calculated GFR & GFRAA in patients over 70 years has not been determined. Clinical correlation is essential. Serum or plasma urea nitroge n measurement (mass/volume)Ordered By: Dr. Brown on 10-23-2022 Urea nitrogen [Mass/Vol] 11 mg/dL 7-18 [facility] Thin prep Papanicolaou smear with manual screeningOrdered By: Dr. Brown on 10-23-2022 Thin prep Papanicolaou smear with manual screening 6 5-15 [facility] Invasive Cardiology Clinic N oteon 08-24-2021 Invasive Cardiology Clinic Note . [facility] A Division of [facility] Gem Barr M.D., [place] [address] * Reason for VisitFOLLOW UP CHEST PAIN(1) [...] me to participate in your patient's care. Office Chair Assembler Statement: Transcribed for Dr. Barr by LEWIS , manager traffic. 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 Normal [facility] Echocardiogram-Completeon Echocardiogram-Complete Study ID: [id number] [facility] [place] [address] Name: CARLOS ALBERTO HOROWITZ JR Study Date: [...] mmHg MV P1/2t-pr: 94.6 msec E/LatE': 9.4 \\\\[id number] [facility] Invasive Cardiology Clinic N oteon 08-02-2021 Invasive Cardiology Clinic Note . [facility] A Division of [facility] Gem Barr M.D., [place] [address] * Reason for VisitFOLLOW UP CHEST PAIN(1) [...] to con (more content not included)... 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 Normal [facility] GLYCOHEMOGLOBINon 01-06-2021 HbA1c (Bld) [Mass fraction] 6.43 % High 4.60-6.30 [facility] Comment on above: Performed By: #### % A1c #### [facility] [address] [place] [address] SUE Flores MD LIPID PROFILE - FASTINGon Cholesterol [Mass/Vol] 152 mg/dL Normal <=200 [facility] Comment on above: Performed By: #### L IPID #### [facility] [address] [place] [address] SUE Flores MD Cholesterol in HDL [Mass/Vol] 28 mg/dL Low 40-60 [facility] Comment on above: Performed By: #### L IPID #### [facility] [address] [place] [address] SUE Flores MD Cholesterol in LDL [Mass/Vol] 85 mg/dL Normal 0-130 [facility] Comment on above: Performed By: #### L IPID #### [facility] [address] [place] [address] SUE Flores MD COMMENT Recommended (Desirable) < 130mg/dL Moderate Risk 130-159 mg/dL High Risk: >/= 130 mg/dL Normal [facility] Comment on above: Performed By: #### L IPID #### [facility] [address] [place] [address] SUE Flores MD Triglyceride [Mass/Vol] 198 mg/dL High <=150 [facility] Comment on above: Performed By: #### L IPID #### [facility] [address] [place] [address] SUE Flores MD RENAL FUNCTION PANELon 01-06 Albumin [Mass/Vol] 4.4 g/dL Normal 3.5-5.0 [facility] Comment on above: Performed By: #### R FP #### [facility] [address] [place] [address] SUE Flores MD Calcium [Mass/Vol] 9.6 mg/dL Normal 8.4-10.2 [facility] Comment on above: Performed By: #### R FP #### [facility] [address] [place] [address] SUE Flores MD Chloride [Moles/Vol] 96 mmol/L Low 98-107 [facility] Comment on above: Performed By: #### R FP #### [facility] [address] [place] [address] SUE Flores MD Creatinine [Mass/Vol] 0.9 mg/dL Normal 0.7-1.3 [facility] Comment on above: Performed By: #### R FP #### [facility] [address] [place] [address] SUE Flores MD ECO2 29 mmol/L Normal 22-30 [facility] Comment on above: Performed By: #### R FP #### [facility] [address] [place] [address] SUE Flores MD EGFR-AF ZIMBABWEAN 109 mL/min/1.73m 2 Normal >=60 [facility] Comment on above: Performed By: #### R FP #### [facility] [address] [place] [address] SUE Flores MD EGFR-NON AF ZIMBABWEAN 90 mL/min/1.73 m 2 Normal >=60 [facility] Comment on above: Performed By: #### R FP #### [facility] [address] [place] [address] SUE Flores MD Glucose [Mass/Vol] 146 mg/dL High 70-99 [facility] Comment on above: Performed By: #### R FP #### [facility] [address] [place] [address] SUE Flores MD Phosphate [Mass/Vol] 4.2 mg/dL Normal 2.5-4.5 [facility] Comment on above: Performed By: #### R FP #### [facility] [address] [place] [address] SUE Flores MD Potassium [Moles/Vol] 4.0 mmol/L Normal 3.5-5.0 [facility] Comment on above: Performed By: #### R FP #### [facility] [address] [place] [address] SUE Flores MD Sodium [Moles/Vol] 136 mmol/L Low 137-145 [facility] Comment on above: Performed By: #### R FP #### [facility] [address] [place] [address] SEU Flores MD Urea nitrogen [Mass/Vol] 13 mg/dL Normal 9-20 [facility] Comment on above: Performed By: #### R FP #### [facility] [address] [place], [place] [id number] SUE Flores MD CHEST TWO VIEWSon 11-09-2020 [...] Date: 11/09/2020 3:55 PM Normal [facility] CBC PLT DIFFon 06-11-2020 BASO # 0.04 10 3/uL Normal 0.00-0.10 [facility] Comment on above: Performed By: #### C BC #### [facility] [address] [place], [place] [id number] SUE Flores MD Basophils/100 WBC (Bld) 0.5 % Normal 0.2-1.0 [facility] Comment on above: Performed By: #### C BC #### [facility] [address] [place], [place] [address] SUE Flores MD EOS# 0.19 10 3/uL Normal 0.00-0.20 [facility] Comment on above: Performed By: #### C BC #### [facility] [address] [place], [place] [id number] SUE Flores MD Eosinophils/100 WBC (Bld) 2.3 % Normal 0.9-2.9 [facility] Comment on above: Performed By: #### C BC #### [facility] [address] [place], [place] [id number] SUE Flores MD Erythrocyte distribution width (RBC) [Ratio] 13.4 % Normal 11.5-15.5 [facility] Comment on above: Performed By: #### C BC #### [facility] [address] [place] [address] SUE Flores MD Hematocrit (Bld) [Volume fraction] 46.5 % Normal 42.0-52.0 [facility] Comment on above: Performed By: #### C BC #### [facility] [address] [place], [place] [id number] SUE Flores MD Hemoglobin (Bld) [Mass/Vol] 16.0 g/dL Normal 14.0-18.0 [facility] Comment on above: Performed By: #### C BC #### [facility] [address] [place] [address] SUE Flores MD IG# 0.04 10 3/uL Normal [facility] Comment on above: Performed By: #### C BC #### [facility] [address] [place] [address] SUE Flores MD IG% 0.5 % Normal [facility] Comment on above: Performed By: #### C BC #### [facility] [address] [place] [address] SUE Flores MD LYMPH# 1.41 10 3/uL Normal 1.30-2.90 [facility] Comment on above: Performed By: #### C BC #### [facility] [address] [place] [address] SUE Flores MD Lymphocytes/100 WBC (Bld) 17.4 % Low 20.5-45.5 [facility] Comment on above: Performed By: #### C BC #### [facility] [address] [place], [place] [id number] SUE Flores MD MCH (RBC) [Entitic mass] 30.1 pg Normal 27.0-31.0 [facility] Comment on above: Performed By: #### C BC #### [facility] [address] [place], [place] [id number] SUE Flores MD MCHC (RBC) [Mass/Vol] 34.4 g/dL Normal 32.0-36.0 [facility] Comment on above: Performed By: #### C BC #### [facility] [address] [place], [place] [id number] SUE Flores MD MCV (RBC) [Entitic vol] 87.6 fL Normal 80.0-94.0 [facility] Comment on above: Performed By: #### C BC #### [facility] [address] [place] [address] SUE Flores MD MONO# 0.67 10 3/uL Normal 0.30-0.80 [facility] Comment on above: Performed By: #### C BC #### [facility] [address] [place] [address] SUE Flores MD Monocytes/100 WBC (Bld) 8.3 % Normal 5.5-11.7 [facility] Comment on above: Performed By: #### C BC #### [facility] [address] [place], [place] [id number] SUE Flores MD Morphology Rocky (Bld) [Interp] Normal [facility] Comment on above: Performed By: #### C BC #### [facility] [address] [place], [place] [address] SUE Flores MD NEUT# 5.75 10 3/uL High 2.20-4.80 [facility] Comment on above: Performed By: #### C BC #### [facility] [address] [place] [address] SUE Flores MD Neutrophils/100 WBC (Bld) 71.0 % High 43.0-65.0 [facility] Comment on above: Performed By: #### C BC #### [facility] [address] [place] [address] SUE Flores MD NRBC# 0.00 10 3/uL Normal [facility] Comment on above: Performed By: #### C BC #### [facility] [address] [place], [place] [id number] SUE Flores MD Nucleated RBC/100 WBC (Bld) [Ratio] 0.0 % Normal [facility] Comment on above: Performed By: #### C BC #### [facility] [address] [place], [place] [id number] SUE Flores MD Platelet mean volume (Bld) [Entitic vol] 8.4 fL Normal 7.4-10.4 [facility] Comment on above: Performed By: #### C BC #### [facility] [address] [place], [place] [address] SUE Flores MD PLT 221 10 3/uL Normal 130-400 [facility] Comment on above: Performed By: #### C BC #### [facility] [address] [place] [address] SUE Flores MD RBC 5.31 10 6/uL Normal 4.70-6.10 [facility] Comment on above: Performed By: #### C BC #### [facility] [address] [place] [address] SUE Flores MD WBC 8.10 10 3/uL Normal 4.70-10.80 [facility] Comment on above: Performed By: #### C BC #### [facility] [address] [place], [place] [address] SUE Flores MD CMPon 06-11-2020 Albumin [Mass/Vol] 4.1 g/dL Normal 3.5-5.0 [facility] Comment on above: Performed By: #### C MP #### [facility] [address] [place], [place] [address] SUE Flores MD ALP [Catalytic activity/Vol] 72 U/L Normal 38-126 [facility] Comment on above: Performed By: #### C MP #### [facility] [address] [place], [place] [address] SUE Flores MD ALT [Catalytic activity/Vol] 17 U/L Low 21-72 [facility] Comment on above: Performed By: #### C MP #### [facility] [address] [place], [place] [address] SUE Flores MD AST [Catalytic activity/Vol] 21 U/L Normal 17-59 [facility] Comment on above: Performed By: #### C MP #### [facility] [address] [place] [address] SUE Flores MD Bilirubin [Mass/Vol] 0.6 mg/dL Normal 0.2-1.3 [facility] Comment on above: Performed By: #### C MP #### [facility] [address] [place], [place] [address] SUE Flores MD Calcium [Mass/Vol] 8.9 mg/dL Normal 8.4-10.2 [facility] Comment on above: Performed By: #### C MP #### [facility] [address] [place] [address] SUE Flores MD Chloride [Moles/Vol] 99 mmol/L Normal 98-107 [facility] Comment on above: Performed By: #### C MP #### [facility] [address] [place], [place] [address] SUE Flores MD Creatinine [Mass/Vol] 0.7 mg/dL Normal 0.7-1.3 [facility] Comment on above: Performed By: #### C MP #### [facility] [address] [place] [address] SUE Flores MD ECO2 30 mmol/L Normal 22-30 [facility] Comment on above: Performed By: #### C MP #### [facility] [address] [place], [place] [address] SUE Flores MD EGFR-AF ZIMBABWEAN 146 mL/min/1.73m 2 Normal >=60 [facility] Comment on above: Performed By: #### C MP #### [facility] [address] [place], [place] [address] SUE Folres MD EGFR-NON AF ZIMBABWEAN 120 mL/min/1.73 m 2 Normal >=60 [facility] Comment on above: Performed By: #### C MP #### [facility] [address] [place], [place] [address] SUE Flores MD Glucose [Mass/Vol] 125 mg/dL High 70-99 [facility] Comment on above: Performed By: #### C MP #### [facility] [address] [place], [place] [address] SUE Flores MD Potassium [Moles/Vol] 3.6 mmol/L Normal 3.5-5.0 [facility] Comment on above: Performed By: #### C MP #### [facility] [address] [place], [place] [address] SUE Flores MD Protein [Mass/Vol] 7.4 g/dL Normal 6.3-8.2 [facility] Comment on above: Performed By: #### C MP #### [facility] [address] [place] [address] SUE Flores MD Sodium [Moles/Vol] 136 mmol/L Low 137-145 [facility] Comment on above: Performed By: #### C MP #### [facility] [address] [place], [place] [address] SUE Flores MD Urea nitrogen [Mass/Vol] 11 mg/dL Normal 9-20 [facility] Comment on above: Performed By: #### C MP #### [facility] [address] [place], [place] [address] SUE Flores MD GLYCOHEMOGLOBINon 06-11-2020 HbA1c (Bld) [Mass fraction] 6.22 % Normal 4.00-6.30 [facility] Comment on above: Performed By: #### % A1c #### [facility] [address] [place] [address] SUE Flores MD LIPID PROFILE - FASTINGon Cholesterol [Mass/Vol] 147 mg/dL Normal <=200 [facility] Comment on above: Performed By: #### L IPID #### [facility] [address] [place] [address] SUE Flores MD Cholesterol in HDL [Mass/Vol] 24 mg/dL Low 40-60 [facility] Comment on above: Performed By: #### L IPID #### [facility] [address] [place] [address] SUE Flores MD Cholesterol in LDL [Mass/Vol] 89 mg/dL Normal 0-130 [facility] Comment on above: Performed By: #### L IPID #### [facility] [address] [place], [place] [address] SUE Flores MD COMMENT Recommended (Desirable) < 130mg/dL Moderate Risk 130-159 mg/dL High Risk: >/= 130 mg/dL Normal [facility] Comment on above: Performed By: #### L IPID #### [facility] [address] [place] [address] SUE Flores MD Triglyceride [Mass/Vol] 167 mg/dL High <=150 [facility] Comment on above: Performed By: #### L IPID #### [facility] [address] [place] [id number] SUE Flores MD URIC ACIDon 06-11-2020 Urate [Mass/Vol] 5.6 mg/dL Normal 3.5-8.5 [facility] Comment on above: Performed By: #### U R #### [facility] [address] [place] [id number] SUE Flores MD Vital Signs Date Time Vital Sign Value Performing Clinician Faci lity 12-29-2024 12:23-0400 Heart rate 73 /min Girma Correa [employer] Work Phone: [facility] 12-29-2024 12:23-0400 Respiratory rate 18 /min Girma Correa [employer] Work Phone: [facility] 12-29-2024 09:20-0400 Body temperature 97.8 [degF] Girma Correa [employer] Work Phone: [facility] 12-29-2024 09:20-0400 Diastolic blood pressure 76 mm[Hg] Girma Correa [employer] Work Phone: [facility] 12-29-2024 09:20-0400 SaO2% (BldA) [Mass fraction] 93 % Girma Correa [employer] Work Phone: [facility] 12-29-2024 09:20-0400 Systolic blood pressure 120 mm[Hg] Girma Correa [employer] Work Phone: [facility] 12-29-2024 07:46-0400 Inhaled oxygen flow rate 2 L/min Girma Correa [employer] Work Phone: [facility] 12-29-2024 03:13-0400 Body mass index (BMI) [Ratio] 46 kg/m2 Girma Correa [employer] Work Phone: [facility] 12-29-2024 03:13-0400 Body weight 141.6 kg Girma Correa [employer] Work Phone: [facility] 12-28-2024 04:09-0400 Body height 175.26 cm Girma Correa [employer] Work Phone: [facility] 12-28-2024 03:50-0400 Body temperature 97.5 [degF] Girma Correa [employer] Work Phone: [facility] 12-28-2024 03:50-0400 Diastolic blood pressure 80 mm[Hg] Girma Correa [employer] Work Phone: [facility] 12-28-2024 03:50-0400 Heart rate 112 /min Girma Correa [employer] Work Phone: [facility] 12-28-2024 03:50-0400 Respiratory rate 18 /min Girma Correa [employer] Work Phone: [facility] 12-28-2024 03:50-0400 SaO2% (BldA) [Mass fraction] 96 % Girma Correa [employer] Work Phone: [facility] 12-28-2024 03:50-0400 Systolic blood pressure 104 mm[Hg] Girma Correa [employer] Work Phone: [facility] 12-28-2024 00:44-0400 Inhaled oxygen flow rate 4 L/min Girma Correa [employer] Work Phone: [facility] 12-27-2024 23:19-0400 Body height 175.26 cm Girma Correa [employer] Work Phone: [facility] 12-27-2024 23:19-0400 Body mass index (BMI) [Ratio] 46.7 kg/m2 Girma Correa [employer] Work Phone: [facility] 12-27-2024 23:19-0400 Body weight 143.42 kg Girma Correa [employer] Work Phone: [facility] 12-21-2024 12:18-0400 Body temperature 97.9 [degF] Girma Correa [employer] Work Phone: [facility] 12-21-2024 12:18-0400 Diastolic blood pressure 76 mm[Hg] Girma Correa [employer] Work Phone: [facility] 12-21-2024 12:18-0400 Heart rate 70 /min Girma Correa [employer] Work Phone: [facility] 12-21-2024 12:18-0400 Respiratory rate 16 /min Girma Correa [employer] Work Phone: [facility] 12-21-2024 12:18-0400 SaO2% (BldA) [Mass fraction] 98 % Girma Correa [employer] Work Phone: [facility] 12-21-2024 12:18-0400 Systolic blood pressure 137 mm[Hg] Girma Correa [employer] Work Phone: [facility] 12-21-2024 08:26-0400 Inhaled oxygen flow rate 2 L/min Girma Correa [employer] Work Phone: [facility] 12-21-2024 03:14-0400 Body mass index (BMI) [Ratio] 45.8 kg/m2 Girma Correa [employer] Work Phone: [facility] 12-21-2024 03:14-0400 Body weight 140.6 kg Girma Correa [employer] Work Phone: [facility] 12-20-2024 21:02-0400 Body height 175.26 cm Girma Correa [employer] Work Phone: [facility] 12-20-2024 19:58-0400 Body temperature 98.2 [degF] Girma Correa [employer] Work Phone: [facility] 12-20-2024 19:58-0400 Diastolic blood pressure 64 mm[Hg] Girma Correa [employer] Work Phone: [facility] 12-20-2024 19:58-0400 Heart rate 72 /min Girma Correa [employer] Work Phone: [facility] 12-20-2024 19:58-0400 Respiratory rate 16 /min Girma Correa [employer] Work Phone: [facility] 12-20-2024 19:58-0400 SaO2% (BldA) [Mass fraction] 97 % Girma Correa [employer] Work Phone: [facility] 12-20-2024 19:58-0400 Systolic blood pressure 137 mm[Hg] Girma Correa [employer] Work Phone: [facility] 12-20-2024 15:51-0400 Body mass index (BMI) [Ratio] 47.1 kg/m2 Girma Correa [employer] Work Phone: [facility] 12-20-2024 15:51-0400 Body weight 144.7 kg Girma Correa [employer] Work Phone: [facility] 12-20-2024 14:00-0400 Inhaled oxygen flow rate 2 L/min Girma Correa [employer] Work Phone: [facility] 12-20-2024 13:05-0400 Body height 175.26 cm Girma Correa [employer] Work Phone: [facility] 12-20-2024 03:00-0400 Diastolic blood pressure 82 mm[Hg] Girma Correa [employer] Work Phone: [facility] 12-20-2024 03:00-0400 Heart rate 61 /min Girma Correa [employer] Work Phone: [facility] 12-20-2024 03:00-0400 Respiratory rate 17 /min Girma Correa [employer] Work Phone: [facility] 12-20-2024 03:00-0400 Systolic blood pressure 126 mm[Hg] Girma Correa [employer] Work Phone: [facility] 12-20-2024 02:36-0400 Body temperature 98.2 [degF] Girma Alvareznaveed [employer] Work Phone: [facility] 12-19-2024 22:20-0400 Body height 175.26 cm Girma Correa [employer] Work Phone: [facility] 12-19-2024 22:20-0400 Body mass index (BMI) [Ratio] 47.5 kg/m2 Girma Alvareznaveed [employer] Work Phone: [facility] 12-19-2024 22:20-0400 Body weight 146.1 kg Girma Correa [employer] Work Phone: [facility] 10-04-2024 21:13-0400 Reason For Taking VItal Signs DR ROBERT SCHMITZ MD [address] 10-04-2024 19:37-0400 Heart rate 71 /min DR ROBERT Walls [address] [place] [address] 10-04-2024 19:37-0400 Reason For Taking VItal Signs DR ROBERT SCHMITZ MD [address] 10-04-2024 19:37-0400 Respiratory rate 18 /min DR ROBERT Walls [facility] 10-04-2024 19:14-0400 Heart rate 66 /min DR ROBERT Walls [facility] 10-04-2024 19:14-0400 Blood Pressure Cuff Size DR ROBERT SCHMITZ MD [facility] 10-04-2024 19:14-[address] ROBERT SCHMITZ MD [facility] 10-04-2024 19:14-[address] ROBERT SCHMITZ MD [facility] 10-04-2024 19:14-0400 Body temperature 97.7 [degF] DR ROBERT Walls [address] [place] [address] 10-04-2024 19:14-0400 Diastolic Blood Pressure Non-Invasive 90 mm[Hg] DR ROBERT SCHMITZ MD [address] [place] [address] 10-04-2024 19:14-0400 Reason For Taking VItal Signs DR ROBERT SCHMITZ MD [address] [place] [address] 10-04-2024 19:14-0400 Respiratory rate 16 /min DR ROBERT Walls [address] [place] [address] 10-04-2024 19:14-0400 Systolic Blood Pressure Non-Invasive 138 mm[Hg] DR ROBERT SCHMITZ MD [address] [place] [address] 10-04-2024 16:28-0400 Heart rate 72 /min DR ROBERT aWlls [address] [place] [address] 10-04-2024 15:31-0400 Heart rate 72 /min DR ROBERT Walls [address] [place] [address] 10-04-2024 15:31-0400 Blood Pressure Cuff Size DR ROBERT SCHMITZ MD [address] [place] [address] 10-04-2024 15:31-[address] ROBERT SCHMITZ MD [address] [place] [address] 10-04-2024 15:31-[address] ROBERT SCHMITZ MD [address] [place] [address] 10-04-2024 15:31-0400 Body temperature 97.52 [degF] DR ROBERT Walls [address] [place] [address] 10-04-2024 15:31-0400 Diastolic Blood Pressure Non-Invasive 72 mm[Hg] DR ROBERT SCHMITZ MD [address] [place] [address] 10-04-2024 15:31-0400 Respiratory rate 16 /min DR ROBERT Walls [address] [place] [address] 10-04-2024 15:31-0400 Systolic Blood Pressure Non-Invasive 120 mm[Hg] DR ROBERT SCHMITZ MD [address] [place] [address] 10-04-2024 15:02-0400 Blood Pressure Cuff Size DR ROBERT SCHMITZ MD [address] [place] [address] 10-04-2024 15:02-[address] ROBERT SCHMITZ MD [address] [place] [address] 10-04-2024 15:02-[address] ROBERT SCHMITZ MD [address] [place] [address] 10-04-2024 15:02-0400 Body temperature 97.88 [degF] DR ROBERT Walls [address] [place] [address] 10-04-2024 15:02-0400 Diastolic Blood Pressure Non-Invasive 78 mm[Hg] DR ROBERT SCHMITZ MD [address] [place] [address] 10-04-2024 15:02-0400 Heart rate 73 /min DR ROBERT Walls [address] [place] [address] 10-04-2024 15:02-0400 Systolic Blood Pressure Non-Invasive 116 mm[Hg] DR ROBERT SCHMITZ MD [address] [place] [address] 10-04-2024 11:59-0400 Heart rate 61 /min DR ROBERT Walls [address] [place] [address] 10-04-2024 07:54-0400 Heart rate 66 /min DR ROBERT Walls [address] [place] [address] 10-04-2024 07:46-0400 Heart rate 64 /min DR ROBERT Walls [address] [place] [address] 10-03-2024 16:05-0400 Heart rate 74 /min DR ROBERT Walls [address] [place] [address] 10-02-2024 06:28-0400 Body height 177.[address] ROBERT Walls [facility] 10-02-2024 06:28-0400 Body weight 140.[address] ROBERT Walls [facility] 10-02-2024 06:28-0400 Body weight 44.38 kg/m2 DR ROBERT Walls [facility] 10-02-2024 05:00-0400 Diastolic Blood Pressure Non-Invasive [...] Pressure Non-Invasive 90 mm[Hg] DELORES DURESKA DO [facility] 10-02-2024 02:15-0400 Heart rate 120 /min DELORES DURESKA DO [facility] 10-02-2024 02:15-0400 Respiratory rate 18 /min DELORES MURO DO [facility] 10-02-2024 02:15-0400 Systolic Blood Pressure Non-Invasive 106 mm[Hg] DELORES MURO DO [facility] 10-02-2024 00:27-0400 Body temperature 98.06 [degF] DELORES MURO DO [facility] 02-01-2024 16:08-0400 Heart rate 72 /min CINDY FLORES MD [facility] 02-01-2024 15:25-0400 Heart rate 68 /min CINDY FLORES MD [facility] 02-01-2024 15:25-0400 Respiratory rate 18 /min CINDY FLORES MD [facility] 02-01-2024 14:44-0400 Body temperature 98.6 [degF] CINDY FLORES MD [facility] 02-01-2024 14:44-0400 Diastolic Blood Pressure Non-Invasive 82 mm[Hg] CINDY FLORES MD [facility] 02-01-2024 14:44-0400 Heart rate 72 /min CINDY FLORES MD [facility] 02-01-2024 14:44-0400 Respiratory rate 18 /min CINDY FLORES MD [facility] 02-01-2024 14:44-0400 Systolic Blood Pressure Non-Invasive 119 mm[Hg] CINDY FLORES MD [facility] 02-01-2024 11:12-0400 Body temperature 98.24 [degF] CINDY FLORES MD [facility] 02-01-2024 11:12-0400 Diastolic Blood Pressure Non-Invasive 72 mm[Hg] CINDY FLORES MD [facility] 02-01-2024 11:12-0400 Heart rate 82 /min CINDY FLORES MD [facility] 02-01-2024 11:12-0400 Reason For Taking VItal Signs CINDY FLORES MD [facility] 02-01-2024 11:12-0400 Respiratory rate 18 /min CINDY FLORES MD [facility] 02-01-2024 11:12-0400 Systolic Blood Pressure Non-Invasive 101 mm[Hg] CINDY FLORES MD [facility] 02-01-2024 09:16-0400 Heart rate 79 /min CINDY FLORES MD [facility] 02-01-2024 09:04-0400 Blood Pressure Cuff Size CINDY FLORES MD [facility] 02-01-2024 09:04-0400 Blood Pressure Location CINDY FLORES MD [facility] 02-01-2024 09:04-0400 Blood Pressure Method CINDY FLORES MD [facility] 02-01-2024 09:04-0400 Body temperature 98.96 [degF] CINDY FLORES MD [facility] 02-01-2024 09:04-0400 Diastolic Blood Pressure Non-Invasive 64 mm[Hg] CINDY FLORES MD [facility] 02-01-2024 09:04-0400 Heart rate 84 /min CINDY FLORES MD [facility] 02-01-2024 09:04-0400 Reason For Taking VItal Signs CINDY FLORES MD [facility] 02-01-2024 09:04-0400 Systolic Blood Pressure Non-Invasive 105 mm[Hg] CINDY FLORES MD [facility] 02-01-2024 07:04-0400 Heart rate 60 /min CINDY FLORES MD [facility] 02-01-2024 03:35-0400 Heart rate 80 /min CINDY FLORES MD [facility] 02-01-2024 03:35-0400 Mean blood pressure 73 mm[Hg] CINDY FLORES MD [facility] 02-01-2024 03:35-0400 Reason For Taking VItal Signs CINDY FLORES MD [facility] 01-31-2024 23:23-0400 Heart rate 84 /min CINDY FLORES MD [facility] 01-31-2024 23:23-0400 Mean blood pressure 74 mm[Hg] CINDY FLORES MD [facility] 01-31-2024 18:38-0400 Mean blood pressure 79 mm[Hg] CINDY FLORES MD [facility] 01-31-2024 02:56-0400 Body height 175 cm CINDY FLORES MD [facility] 01-31-2024 02:56-0400 Body weight 149.1 kg CINDY FLORES MD [facility] 01-31-2024 02:56-0400 Body weight 48.69 kg/m2 CINDY FLORES MD [facility] 01-31-2024 01:18-[address] [...] pressure 82 mm[Hg] DR SAMY JONES MD [facility] 01-31-2024 01:18-0400 Reason [...] fraction] 88.8 % DR SAMY JONES MD [facility] 01-30-2024 20:15-0400 Body height 175.[address] [...] Heart rate 60 /min MOY WATTS MD [facility] 06-09-2023 21:35-0500 Reason For Taking VItal Signs MOY WATTS MD [facility] 06-09-2023 21:35-0500 Respiratory rate 18 /min MOY WATTS MD [facility] 06-09-2023 19:40-0500 Blood Pressure Cuff Size MOY WATTS MD [facility] 06-09-2023 19:40-0500 Blood Pressure Location MOY WATTS MD [facility] 06-09-2023 19:40-0500 Blood Pressure Method MOY WATTS MD [address] 06-09-2023 19:40-0500 Body temperature 98.24 [degF] MOY WATTS MD [address] [place] [address] 06-09-2023 19:40-0500 Diastolic Blood Pressure Non-Invasive 66 mm[Hg] MOY WATTS MD [address] [place] [address] 06-09-2023 19:40-0500 Heart rate 63 /min MOY WATTS MD [address] [place] [address] 06-09-2023 19:40-0500 Reason For Taking VItal Signs MOY WATTS MD [address] [place] [address] 06-09-2023 19:40-0500 Respiratory rate 18 /min MOY WATTS MD [address] [place] [address] 06-09-2023 19:40-0500 Systolic Blood Pressure Non-Invasive 112 mm[Hg] MOY WATTS MD [address] [place] [address] 06-09-2023 19:29-0500 Heart rate 63 /min MOY WATTS MD [address] [place] [address] 06-09-2023 16:56-0500 Heart rate 66 /min MOY WATTS MD [address] [place] [address] 06-09-2023 16:04-0500 Blood Pressure Cuff Size MOY WATTS MD [address] [place] [address] 06-09-2023 16:04-0500 Blood Pressure Location MOY WATTS MD [address] [place] [address] 06-09-2023 16:04-0500 Blood Pressure Method MOY WATTS MD [address] [place] [address] 06-09-2023 16:04-0500 Body temperature 97.88 [degF] MOY WATTS MD [address] [place] [address] 06-09-2023 16:04-0500 Diastolic Blood Pressure Non-Invasive 78 mm[Hg] MOY WATTS MD [address] [place] [address] 06-09-2023 16:04-0500 Reason For Taking VItal Signs MOY WATTS MD [address] [place] [address] 06-09-2023 16:04-0500 Respiratory rate 18 /min MOY WATTS MD [address] [place] [address] 06-09-2023 16:04-0500 Systolic Blood Pressure Non-Invasive 138 mm[Hg] MOY WATTS MD [address] [place] [address] 06-09-2023 11:17-0500 Blood Pressure Cuff Size MOY WATTS MD [address] [place] [address] 06-09-2023 11:17-0500 Blood Pressure Location MOY WATTS MD [address] [place] [address] 06-09-2023 11:17-0500 Blood Pressure Method MOY WATTS MD [address] [place] [address] 06-09-2023 11:17-0500 Body temperature 97.88 [degF] MOY WATTS MD [address] [place] [address] 06-09-2023 11:17-0500 Diastolic Blood Pressure Non-Invasive 64 mm[Hg] MOY WATTS MD [address] [place] [address] 06-09-2023 11:17-0500 Systolic Blood Pressure Non-Invasive 126 mm[Hg] MOY WATTS MD [address] [place] [address] 06-09-2023 08:54-0500 Heart rate 66 /min MOY WATTS MD [address] [place] [address] 06-08-2023 23:49-0500 Mean blood pressure 77 mm[Hg] MOY WATTS MD [address] [place] [address] 06-08-2023 17:50-0500 Heart rate 65 /min MOY WATTS MD [facility] 06-08-2023 14:06-0500 Heart rate 58 /min MOY WATTS MD [facility] 06-08-2023 07:05-0500 Mean blood pressure 90 mm[Hg] MOY WATTS MD [facility] 06-07-2023 13:36-0500 Body height 176 cm MOY WATTS MD [address] 06-07-2023 13:36-0500 Body weight 152.9 kg MOY WATTS MD [address] 06-07-2023 13:36-0500 Body weight 49.36 kg/m2 MOY WATTS MD [facility] 05-05-2023 20:50-0500 Diastolic Blood Pressure Non-Invasive [...] [facility] 02-12-2023 07:06-0400 Body height 175.26 cm [facility] 02-12-2023 07:06-0400 Body mass index (BMI) [Ratio] 49.5 kg/m2 [facility] 02-12-2023 07:06-0400 Body temperature 97.8 [degF] [facility] 02-12-2023 07:06-0400 Body weight 152.1 kg [facility] 02-12-2023 07:06-0400 Diastolic blood pressure 101 mm[Hg] [facility] 02-12-2023 07:06-0400 Heart rate 98 /min [facility] 02-12-2023 07:06-0400 Respiratory rate 16 /min [facility] 02-12-2023 07:06-0400 SaO2% (BldA) [Mass fraction] 95 % [facility] 02-12-2023 07:06-0400 Systolic blood pressure 132 mm[Hg] [facility] 12-23-2022 07:51-0400 Diastolic Blood Pressure Non-Invasive 68 1 MOY WATTS MD [facility] 12-23-2022 07:51-0400 Heart rate 61 /min MOY WATTS MD [address] [place] [address] 12-23-2022 07:51-0400 Respiratory rate 12 /min MOY WATTS MD [address] [place] [address] 12-23-2022 07:51-0400 Systolic Blood Pressure Non-Invasive 106 1 MOY WATTS MD [address] [place] [address] 12-23-2022 07:39-0400 Diastolic Blood Pressure Non-Invasive 60 1 MOY WATTS MD [address] [place] [address] 12-23-2022 07:39-0400 Heart rate 64 /min MOY WATTS MD [address] [place] [address] 12-23-2022 07:39-0400 Respiratory rate 20 /min MOY WATTS MD [address] [place] [address] 12-23-2022 07:39-0400 Systolic Blood Pressure Non-Invasive 97 1 MOY WATTS MD [address] [place] [address] 12-23-2022 07:34-0400 Diastolic Blood Pressure Non-Invasive 59 1 MOY WATTS MD [address] [place] [address] 12-23-2022 07:34-0400 Heart rate 62 /min MOY WATTS MD [address] [place] [address] 12-23-2022 07:34-0400 Respiratory rate 16 /min MOY WATTS MD [address] [place] [address] 12-23-2022 07:34-0400 Systolic Blood Pressure Non-Invasive 74 1 MOY WATTS MD [address] [place] [address] 12-23-2022 07:24-0400 Body temperature 97.34 [degF] MOY WATTS MD [address] [place] [address] 12-23-2022 07:20-0400 Heart rate 73 /min MOY WATTS MD [address] [place] [address] 12-23-2022 07:20-0400 Respiratory Rate - Anes 22 br/min MOY WATTS MD [address] [place] [address] 12-23-2022 07:15-0400 Heart rate 91 /min MOY WATTS MD [address] [place] [address] 12-23-2022 07:15-0400 Respiratory Rate - Anes 18 br/min MOY WATTS MD [address] [place] [address] 12-23-2022 06:37-0400 Body height 175.3 cm MOY WATTS MD [address] [place] [address] 12-23-2022 06:34-0400 Body height 175.3 cm MOY WATTS MD [address] [place] [address] 12-23-2022 06:34-0400 Body temperature 95.54 [degF] MOY WATTS MD [address] [place] [address] 12-23-2022 06:34-0400 Body weight 144 kg MOY WATTS MD [address] [place] [address] 10-27-2022 06:49-0400 Body temperature 97.7 [degF] DR [...] Pressure Non-Invasive 132 1 DEMI HUSTON MD [facility] 10-24-2022 23:21-0400 Body height 175.3 cm DEMI HUSTON MD [facility] 10-24-2022 23:21-0400 Body temperature 98.24 [degF] DEMI HUSTON MD [facility] 10-24-2022 23:21-0400 Body weight 139 kg DEMI HUSTON MD [facility] 10-24-2022 23:21-0400 Diastolic Blood Pressure Non-Invasive 99 1 DEMI HUSTON MD [facility] 10-24-2022 23:21-0400 Heart rate 105 /min DEMI HUSTON MD [facility] 10-24-2022 23:21-0400 Respiratory rate 19 /min DEMI HUSTON MD [facility] 10-24-2022 23:21-0400 Systolic Blood Pressure Non-Invasive 146 1 DEMI HUSTON MD [facility] 10-23-2022 10:51-0400 Diastolic blood pressure 76 mm[Hg] [facility] 10-23-2022 10:51-0400 Heart rate 73 /min [facility] 10-23-2022 10:51-0400 Respiratory rate 15 /min [facility] 10-23-2022 10:51-0400 SaO2% (BldA) [Mass fraction] 98 % [facility] 10-23-2022 10:51-0400 Systolic blood pressure 148 mm[Hg] [facility] 10-23-2022 05:58-0400 Body height 175.26 cm [facility] 10-23-2022 05:58-0400 Body mass index (BMI) [Ratio] 47.7 kg/m2 [facility] 10-23-2022 05:58-0400 Body temperature 97.6 [degF] [facility] 10-23-2022 05:58-0400 Body weight 146.8 kg [facility] 07-15-2022 21:40-0500 Diastolic Blood Pressure Non-Invasive [...] [facility] 07-11-2022 08:21-0500 Respiratory rate 24 /min MALOIRE PEGUERO MD [facility] 07-11-2022 08:21-0500 Systolic Blood Pressure Non-Invasive 150 1 MALORIE PEGUERO MD [facility] Encounters Encounter Date Encounter Type Care Provider Facility Start: 02-04-2025 ambulatory Jhonatan HOLCOMB Facil ity:[facility] Start: 01-28-2025 ambulatory Jhonatan HOLCOMB Facil ity:[facility] Start: 01-23-2025 ambulatory Dolly HOLCOMB Facili ty:[facility] Start: 12-29-2024 Non-patient / Non-visit Dr. Tricia Carvalho MD -[facility] Work Phone: Start: 12-28-2024 ambulatory Keagan Lundberg ty:[facility] Start: 12-28-2024 End: 12-29-2024 Evaluation and management of inpatient Dr. Keagan Rowe DO -[facility] Work Phone: Start: 12-23-2024 End: 12-26-2024 Evaluation and management of inpatient DR SONNY MAX MD [facility] Start: 12-21-2024 Non-patient / Non-visit Dr. Farzad Camilo MD -[facility] Work Phone: Start: 12-20-2024 End: 12-21-2024 ambulatory Farzad Camilo Facility:[facility] Start: 12-20-2024 End: 12-21-2024 Evaluation and management of inpatient Dr. Yaz Dee MD -[facility] Work Phone: Start: 12-20-2024 End: 12-21-2024 observation encounter Girma Correa [employer] Work Phone: -[facility] Start: 12-20-2024 ambulatory [facility] Facility: [place] [facility] Start: 12-20-2024 Non-patient / Non-visit Dr. Austin Estrada MD -[facility] Start: 12-19-2024 End: 12-20-2024 Emergency department patient visit Girma Correa [employer] Work Phone: -Emergency Department Work Phone: Start: 12-10-2024 End: 12-13-2024 Evaluation and management of inpatient DELORES MURO DO [facility] Start: 12-04-2024 End: 12-04-2024 Emergency department patient visit JEREMIE MCCORMACK MD [facility] Start: 11-24-2024 End: 11-28-2024 Evaluation and management of inpatient DR SONNY MAX MD [facility] Start: 11-24-2024 End: 11-24-2024 Emergency department patient visit CIRILO MEGHANBaljinder DO [facility] Start: 11-06-2024 ambulatory Dolyl Siddiqui ty:[facility] Start: 11-06-[address] Dolly Marino MD -[facility] Start: 11-04-2024 End: 11-04-2024 ambulatory Girma Correa [employer] Work Phone: -[facility] Start: 11-04-2024 End: 11-04-[address] Dolly Marino MD -[facility] Start: 11-04-[address] Dolly Marino MD -[facility] Start: 11-04-2024 End: 11-04-2024 ambulatory Girma Correa DIESEL ELECTRICIAN Facility:[facility] Start: 10-30-2024 ambulatory Dolly HOLCOMB Facili ty:[facility] Start: 10-30-[address] Dolly Marino MD [facility] Start: 10-28-2024 ambulatory Dolly HOLCOMB Facili ty:[facility] Start: 10-28-[address] Dolly Marino MD [facility] Start: 10-24-2024 ambulatory Dolly HOLCOMB Facili ty:[facility] Start: 10-24-[address] Dolly Marino MD [facility] Start: 10-16-2024 End: 10-23-2024 Evaluation and management of inpatient NANI VIVEROS DO [facility] Start: 10-16-2024 End: 10-16-2024 Emergency department patient visit JAKE Guo [facility] Start: 10-02-2024 End: 10-04-2024 Evaluation and management of inpatient DR ROBERT SCHMITZ MD [facility] Start: 10-02-2024 End: 10-02-2024 Emergency department patient visit DELORES MURO DO [facility] Start: 09-05-2024 ambulatory GIRMA CORREA OPEN DIE INSPECTOR-BUILDING PRINCIPAL Facility:[facility] Start: 08-29-2024 End: 08-29-2024 Emergency department patient visit GIRMA CORREA OPEN DIE INSPECTOR-BUILDING PRINCIPAL Facility:[facility] Start: 08-27-2024 End: 08-27-2024 ambulatory GIRMA CORREA OPEN DIE INSPECTOR-BUILDING PRINCIPAL [facility] Start: 08-13-2024 End: 08-13-2024 Emergency department patient visit DR WILNER JOE MD Facility:[facility] Start: 05-14-2024 End: 05-14-2024 ambulatory GIRMA CORREA OPEN DIE INSPECTOR-BUILDING PRINCIPAL [facility] Start: 05-14-2024 End: 05-14-2024 Patient encounter procedure GIRMA CORREA OPEN DIE INSPECTOR-BUILDING PRINCIPAL [facility] Start: 03-25-2024 ambulatory GIRMA CORREA OPEN DIE INSPECTOR-BUILDING PRINCIPAL Facility:[facility] Start: 03-25-2024 End: 03-29-2024 ambulatory GIRMA CORREA OPEN DIE INSPECTOR-BUILDING PRINCIPAL [facility] Start: 03-25-2024 End: 03-29-2024 Outreach Lab HELEN YANES OPEN DIE INSPECTOR-BUILDING PRINCIPAL [facility] Start: 02-16-2024 End: 02-16-2024 ambulatory GIRMA CORREA OPEN DIE INSPECTOR-BUILDING PRINCIPAL [facility] Start: 02-16-2024 End: 02-16-2024 Patient encounter procedure GIRMA CORREA OPEN DIE INSPECTOR-BUILDING PRINCIPAL [facility] Start: 02-12-2024 End: 02-12-2024 ambulatory GIRMA CORREA OPEN DIE INSPECTOR-BUILDING PRINCIPAL [facility] Start: 02-12-2024 End: 02-12-2024 Patient encounter procedure GIRMA CORREA OPEN DIE INSPECTOR-BUILDING PRINCIPAL [facility] Start: 01-31-2024 End: 02-01-2024 Evaluation and management of inpatient GIRMA CORREA Facility:[facility] Start: 01-30-2024 End: 01-31-2024 Emergency department patient visit DR SAMY JONES MD [facility] Start: 10-11-2023 End: 10-11-2023 ambulatory [facility] Start: 08-22-2023 End: 08-22-2023 ambulatory GIRMA CORREA Facility:[facility] Start: 08-22-2023 End: 08-22-2023 Patient encounter procedure GIRMA CORREA OPEN DIE INSPECTOR-BUILDING PRINCIPAL [facility] Start: 08-09-2023 End: 08-09-2023 Emergency department patient visit DR OLLIE BROOKE MD [facility] Start: 08-08-2023 End: 08-12-2023 ambulatory GIRMA CORREA Facility:[facility] Start: 08-08-2023 End: 08-12-2023 Outreach Lab GIRMA CORREA OPEN DIE INSPECTOR-BUILDING PRINCIPAL [facility] Start: 08-08-2023 End: 08-08-2023 ambulatory GIRMA CORREA Facility:[facility] Start: 06-13-2023 End: 06-13-2023 Emergency department patient visit DEMI HUSTON MD [facility] Start: 06-07-2023 End: 06-09-2023 Evaluation and management of inpatient MOY WATTS MD [facility] Start: 05-05-2023 End: 05-05-2023 Emergency department patient visit DEMI HUSTON MD [facility] Start: 05-03-2023 ambulatory JAD Coombs Facility:[facility] Start: 04-03-2023 End: 04-03-2023 ambulatory GIRMA CORREA Facility:[facility] Start: 04-03-2023 End: 04-03-2023 Patient encounter procedure JONNY HOFF OPEN DIE INSPECTOR-BUILDING PRINCIPAL [facility] Start: 03-22-2023 End: 03-22-2023 ambulatory GIRMA CORREA Facility:[facility] Start: 03-14-2023 ambulatory GIRMA CORREA Facility :[facility] Start: 02-22-2023 ambulatory GIRMA CORREA Facility :[facility] Start: 02-12-2023 End: 02-12-2023 Emergency department patient visit [facility] Work Phone: Start: 02-01-2023 End: 02-01-2023 Patient encounter procedure GIRMA CORREA OPEN DIE INSPECTOR-BUILDING PRINCIPAL [facility] Start: 12-23-2022 End: 12-23-2022 Minor Procedure MOY WATTS MD [facility] Start: 11-11-2022 End: 11-11-2022 Patient encounter procedure MOY WATTS MD [facility] Start: 10-27-2022 End: 10-27-2022 Emergency department patient visit DR OLLIE BROOKE MD [facility] Start: 10-24-2022 End: 10-25-2022 Emergency department patient visit DEMI HUSTON MD [facility] Start: 10-23-2022 End: 10-23-2022 Emergency department patient visit [facility] Start: 07-15-2022 End: 07-15-2022 Emergency department patient visit JEREMIE MCCORMACK MD [facility] Start: 07-11-2022 End: 07-11-2022 Emergency department patient visit MALORIE PEGUERO MD [facility] Start: 07-05-2022 End: 07-05-2022 ambulatory [facility] Start: 04-12-2022 End: 04-12-2022 ambulatory [facility] Start: 03-11-2022 ambulatory Melissa Ayala Facility: [facility] Start: 01-12-2022 End: 01-12-2022 ambulatory [facility] Start: 08-24-2021 ambulatory [facility] Start: 08-17-2021 End: 08-18-2021 ambulatory [facility]. Start: 08-02-2021 ambulatory Wil[facility]leo Mancera [facility] Procedures Date Procedure Procedure Detail Performing Clinician Start: 12-29-2024 Estimated creatinine clearance Girma Correa [employer] Work Phone: Start: 12-28-2024 Serum inorganic phos phate measurement Girma Correa [employer] Work Phone: Start: 12-28-2024 Urnls dip stick/tabl et reagent auto microscopy Girma Correa [employer]IAN[employer] Work Phone: Start: 12-27-2024 Plain chest X-ray Aura Correa [employer]IAN-C Work Phone: Start: 12-27-2024 Estimated creatinine clearance Girma Correa [employer] ELECT[employer]IAN-C Work Phone: Start: 12-21-2024 Estimated creatinine clearance Girma Correa [employer] E[employer]IAN[employer]C Work Phone: Start: 12-20-2024 Estimated creatinine clearance Girma Correa [employer] E[employer]IAN-C Work Phone: Start: 12-20-2024 Plain x-ray of hand Gracie ky Correa [employer] E[employer]IAN-C Work Phone: Start: 12-20-2024 CT angiography of ch est with contrast Girma Correa [employer]IAN[employer]C Work Phone: Start: 12-19-2024 Plain chest X-ray Aura Correa [employer]IAN[employer] Work Phone: Start: 12-19-2024 D-dimer assay, quantitative Girma Sunny [employer] ELECT[employer]IAN-C Work Phone: Comment on above: D-Dimer ELEVATED (>0 .49): Additional studies and clinicalassessments are indicated to conclude diagnosis of:Deep Vein Thrombosis (DVT) or Pulmonary Embolism (PE)CRITICAL VALUE CALLED TO XLFTSOBT19/25/25 0020 Marquez Swain.RESULTS READ BACK BY SAME. Start: 12-19-2024 Estimated creatinine clearance Girma Sunny [employer] ELECT[employer]IAN-C Work Phone: Start: 10-28-2024 Vitamin D, 25-hydrox y measurement Girma Sunny [employer]IAN[employer] Work Phone: Comment on above: Vitamin D StatusDefi ciency: <20 ng/mL (50nmol/L)Insufficiency: 20-30 ng/mL (50-75 nmol/L)Sufficiency: 30-100 ng/mL (75-250 nmol/L)Toxicity: >100 ng/mL (>250 nmol/L) Start: 03-25-2024 Excision HELEN ISRAEL AGUIRRE OPEN DIE INSPECTOR-BUILDING PRINCIPAL Comment on above: excision of multilob ulated lipomatous mass right forearm Start: 01-31-2024 Echocardiography CHUN CORREA OPEN DIE INSPECTOR-BUILDING PRINCIPAL Start: 02-12-2023 SARS-CoV-2 & FLU Ant igen (Rapid) Start: 02-12-2023 Viral antigen assay Start: 02-12-2023 Plain chest X-ray Start: 12-23-2022 Cardioversion JAD WATTS MD Start: 11-11-2022 Echocardiography JONNY HOFF OPEN DIE INSPECTOR-BUILDING PRINCIPAL Comment on above: 1. Left ventricle: T [...] Activity Detail Author Start: 12-29-2024 Patient discharge [facility] Start: 12-29-2024 [facility] Start: 12-28-2024 Referral to occupati onal therapist [facility] Start: 12-28-2024 Following clinical p athway protocol [facility] Start: 12-28-2024 Peripherally inserte d central catheter care [facility] Start: 12-28-2024 Ambulation without limitation [facility] Start: 12-28-2024 Assessment of risk o f venous thromboembolism [facility] Start: 12-28-2024 Care regimes management [facility] Start: 12-28-2024 Incentive spirometry [facility] Start: 12-28-2024 Inhalation therapy procedure [facility] Start: 12-28-2024 Insertion of cathete r into peripheral vein [facility] Start: 12-28-2024 Measuring intake and output [facility] Start: 12-28-2024 Notification of physician [facility] Start: 12-28-2024 Oxygen therapy [facility] Start: 12-28-2024 Providing care accor ding to standard [facility] Start: 12-28-2024 Referral to curator of collections [facility] Start: 12-28-2024 Referral to service [facility] Start: 12-28-2024 End: 12-28-2024 [facility] Start: 12-28-2024 Thyroid stimulating hormone measurement [facility] Start: 12-28-2024 Verification routine [facility] Start: 12-28-2024 Admission procedure [facility] Start: 12-28-2024 Hospital admission, emergency, from emergency room, medical nature [facility] Start: 12-28-2024 End: 12-28-2024 [facility] Start: 12-28-2024 Consultation [facility] Start: 12-21-2024 Oxygen therapy [facility] Start: 12-21-2024 Patient discharge [facility] Start: 12-21-2024 Inhalation therapy procedure [facility] Start: 12-20-2024 Assessment of risk o f venous thromboembolism [facility] Start: 12-20-2024 Care regimes management [facility] Start: 12-20-2024 Consultation [facility] Start: 12-20-2024 Elevation of affected extremity [facility] Start: 12-20-2024 Insertion of cathete r into peripheral vein [facility] Start: 12-20-2024 Measuring intake and output [facility] Start: 12-20-2024 Notification of physician [facility] Start: 12-20-2024 Providing care accor ding to standard [facility] Start: 12-20-2024 Provision of activity privileges [facility] Start: 12-20-2024 Referral to occupati onal therapist [facility] Start: 12-20-2024 Referral to service [facility] Start: 12-20-2024 End: 12-20-2024 [facility] Start: 12-20-2024 Following clinical p athway protocol [facility] Start: 12-20-2024 Verification routine [facility] Start: 12-20-2024 Admission procedure [facility] Start: 12-20-2024 Hospital admission, emergency, from emergency room, medical nature [facility] Start: 12-20-2024 Elevation of affected extremity [facility] Start: 12-20-2024 [facility] Start: 12-20-2024 [facility] Start: 12-20-2024 Patient referral to dietitian [facility] Start: 12-19-2024 [facility] Start: 10-23-2022 [facility] Bilirubin measurement, urine [facility] Hemoglobin [Presence] in Urine [facility] Magnesium measurement [facility] Measurement of keton es in urine using dipstick [facility] Microscopic urinalysis [facility] Patient Education [facility] Work Phone: Patient referral [facility] Work Phone: pH of Urine [facility] Specific gravity of Urine [facility] Troponin T.cardiac [ Mass/volume] in Serum or Plasma by High sensitivity method [facility] Urine blood test [facility] Urine dipstick for glucose [facility] Urine dipstick for l eukocyte esterase [facility] Urine dipstick for nitrite [facility] Urine dipstick for protein [facility] Urine examination [facility] Urine microscopy: ep ithelial cells [facility] Urine Microscopy: white cells [facility] Urobilinogen [Presence] in Urine [facility] Immunizations Immunization Date Immunization Notes Care Provider Fa delilah 04-12-2022 influenza virus vaccine, unspecified formulation MOY WATTS MD [facility] Comment on above: Result Comment: 2023: VIS DATE: 01/01/2021 04-12-2022 pneumococcal conjugate vaccine, 13 valent MOY WATTS MD [facility] Comment on above: Result Comment: 2023: VIS DATE: 07/02/2021 09-11-2020 SARS-CoV-2 (COVID-19 ) mRNA-1273 vaccine MOY WATTS MD [facility] 08-14-2020 SARS-CoV-2 (COVID-19 ) mRNA-1273 vaccine MOY WATTS MD [facility] Payers Date Payer Category Payer Self-pay 2024 Medicaid [id number] 2024 Private Health Insurance 5e [id number] 2023 Medicaid [id number] 1971 Unknown [id number] 2.16.8 40.1.621066.3.579.2.1076 1971 Unknown [id number] 2.16. 840.1.340494.3.579.2.297 1971 Unknown [id number] 2.16.8 40.1.272847.3.579.2.627 1971 Unknown [id number] 2.16.8 40.1.026360.3.579.2.627 1971 Unknown [id number] 2.16.8 40.1.250776.3.579.2.7 1971 Unknown [id number] 2.16.8 40.1.740161.3.579.2.7 1971 Unknown [id number] 2.16.8 40.1.073136.3.579.2.7 1971 Unknown [id number] 2.16.8 40.1.845572.3.579.2.627 1971 Unknown [id number] 2.16.8 40.1.041373.3.579.2.7 1971 Unknown [id number] 2.16.8 40.1.623373.3.579.2.627 1971 Unknown [id number] 2.16.8 40.1.759419.3.579.2.627 1971 Unknown [id number] 2.16.8 40.1.462259.3.579.2.627 1971 Unknown [id number] 2.16.8 40.1.316631.3.579.2.627 1971 Unknown [id number] 2.16.8 40.1.075349.3.579.2.627 1971 Unknown [id number] 2.16.8 40.1.895563.3.579.2.627 1971 Unknown [id number] 2.16.8 40.1.723253.3.579.2.627 1971 Unknown [id number] 2.16.8 40.1.385068.3.579.2.651 1971 Unknown [id number] 2.16. 840.1.174799.3.579.2.627 1971 Unknown [id number] 2.16. 840.1.007438.3.579.2.627 1971 Unknown [id number] 2.16. 840.1.497852.3.579.2.627 1971 Unknown [id number] 2.16.8 40.1.838788.3.579.2.627 1971 Unknown [id number] 2.16.8 40.1.170999.3.579.2.627 1971 Unknown [id number] 2.16.8 40.1.323724.3.579.2.7 1971 Unknown [id number] 2.16.8 40.1.631095.3.579.2.627 1971 Unknown [id number] 2.16.8 40.1.584166.3.579.2.627 1971 Unknown [id number] 2.16.8 40.1.366950.3.579.2.627 1971 Unknown [id number] 2.16.8 40.1.937453.3.579.2.627 1971 Unknown [id number] 2.16.8 40.1.797704.3.579.2.627 1971 Unknown [id number] 2.16.8 40.1.718541.3.579.2.627 1971 Unknown [id number] 2.16.8 40.1.911697.3.579.2.627 1971 Unknown [id number] 2.16.8 40.1.559828.3.579.2.627 1971 Unknown [id number] 2.16. 840.1.184391.3.579.2.627 1971 Unknown [id number] 2.16. 840.1.070122.3.579.2.627 1971 Unknown [id number] 2.16. 840.1.210734.3.579.2.627 1971 Unknown [id number] 2.16.8 40.1.132176.3.579.2.627 1971 Unknown [id number] 2.16.8 40.1.177565.3.579.2.627 Unknown [id number] Unknown [id number] 2.16.8 40.1.062740.3.579.2.443 Unknown [id number] 2.16.8 40.1.848092.3.579.2.462 Unknown [id number] 2.16.8 40.1.258353.3.579.2.462 Unknown [id number] 2.16.8 40.1.749280.3.579.2.462 Unknown [id number] 2.16.8 40.1.720971.3.579.2.462 Unknown [id number] 2.16.8 40.1.845630.3.579.2.462 Unknown [id number] 2.16.8 40.1.977990.3.579.2.462 Unknown [id number] 2.16.8 40.1.253257.3.579.2.462 Unknown [id number] 2.16.8 40.1.217277.3.579.2.462 Unknown [id number] 2.16.8 40.1.544097.3.579.2.462 Unknown [id number] 2.16.8 40.1.300647.3.579.2.462 Unknown [id number] 2.16.8 40.1.537056.3.579.2.462 Unknown [id number] 2.16.8 40.1.984470.3.579.2.462 Unknown [id number] 2.16.8 40.1.471162.3.579.2.462 Unknown [id number] 2.16.8 40.1.870888.3.579.2.462 Unknown [id number] 2.16.8 40.1.750538.3.579.2.462 Unknown [id number] 2.16.8 40.1.071537.3.579.2.462 Unknown [id number] 2.16.8 40.1.792914.3.579.2.462 Unknown [id number] 2.16.8 40.1.827665.3.579.2.462 Unknown [id number] 2.16.8 40.1.644884.3.579.2.462 Social History Date Type Detail Facility Start: 07-11-2022 End: 12-28-2024 Tobacco smoking status Ex-smoker (finding) [facility] Start: 1970 Sex Assigned At Male A [facility] Start: 10-23-2022 End: 02-12-2023 Tobacco smoking status [facility] Unknown if ever smoked [facility] Tobacco Nicotine Use: sn uff. Type: Oral (Snuff, Chew). [facility] Comment on above: using NicoDerm patch Stopped chewing snuf f October 2022 Tobacco smoking status [facility] Start: 06-07-2023 End: 08-08-2023 Tobacco smoking status Former smokeless tobacco user, quit more than 30 days ago [facility] Start: 07-11-2022 Sex Male (finding) [facility] Medical Equipment Procedure Code Equipment Code Equipment Origin al Text Equipment Identifier Dates See Instructions , 1 bottle of 100 Test once daily, # 1 EA, 11 Refill(s), Pharmacy: [facility], 177.8, cm, 11/28/23 13:54:00 EDT, Height, 151.4, kg, 11/28/23 13:54:00 EDT, Dosing Weight Start: 12-12-2023 See Instructions , qs 1 month supply Test once daily, # 1 EA, 11 Refill(s), Pharmacy: [facility], 177.8, cm, 11/28/23 13:54:00 EDT, Height, 151.4, kg, 11/28/23 13:54:00 EDT, Dosing Weight Start: 12-12-2023 See Instructions , 1 bottle of 100 Test once daily, # 1 EA, 11 Refill(s), Pharmacy: [facility], 177.8, cm, 11/28/23 13:54:00 EDT, Height, 151.4, kg, 11/28/23 13:54:00 EDT, Dosing Weight Start: 12-12-2023 See Instructions , qs 1 month supply Test once daily, # 1 EA, 11 Refill(s), Pharmacy: [facility], 177.8, cm, 11/28/23 13:54:00 EDT, Height, 151.4, kg, 11/28/23 13:54:00 EDT, Dosing Weight Start: 12-12-2023 See Instructions , 1 bottle of 100 Test once daily, # 1 EA, 11 Refill(s), Pharmacy: [facility], 177.8, cm, 11/28/23 13:54:00 EDT, Height, 151.4, kg, 11/28/23 13:54:00 EDT, Dosing Weight Start: 12-12-2023 See Instructions , qs 1 month supply Test once daily, # 1 EA, 11 Refill(s), Pharmacy: [facility], 177.8, cm, 11/28/23 13:54:00 EDT, Height, 151.4, kg, 11/28/23 13:54:00 EDT, Dosing Weight Start: 12-12-2023 See Instructions , 1 bottle of 100 Test once daily, # 1 EA, 11 Refill(s), Pharmacy: [facility], 177.8, cm, 11/28/23 13:54:00 EDT, Height, 151.4, kg, 11/28/23 13:54:00 EDT, Dosing Weight Start: 12-12-2023 See Instructions , qs 1 month supply Test once daily, # 1 EA, 11 Refill(s), Pharmacy: [facility], 177.8, cm, 11/28/23 13:54:00 EDT, Height, 151.4, kg, 11/28/23 13:54:00 EDT, Dosing Weight Start: 12-12-2023 See Instructions , 1 bottle of 100 Test once daily, # 1 EA, 11 Refill(s), Pharmacy: [facility], 177.8, cm, 11/28/23 13:54:00 EDT, Height, 151.4, kg, 11/28/23 13:54:00 EDT, Dosing Weight Start: 12-12-2023 See Instructions , qs 1 month supply Test once daily, # 1 EA, 11 Refill(s), Pharmacy: [facility], 177.8, cm, 11/28/23 13:54:00 EDT, Height, 151.4, kg, 11/28/23 13:54:00 EDT, Dosing Weight Start: 12-12-2023 See Instructions , 1 bottle of 100 Test once daily, # 1 EA, 11 Refill(s), Pharmacy: [facility], 177.8, cm, 11/28/23 13:54:00 EDT, Height, 151.4, kg, 11/28/23 13:54:00 EDT, Dosing Weight Start: 12-12-2023 See Instructions , qs 1 month supply Test once daily, # 1 EA, 11 Refill(s), Pharmacy: [facility], 177.8, cm, 11/28/23 13:54:00 EDT, Height, 151.4, kg, 11/28/23 13:54:00 EDT, Dosing Weight Start: 12-12-2023 Extremity On Awake Counselor al Fixator Application L Unknown 10/17/24 Unknown Unknown FDA Start: 10-17-2024 Extremity On Awake Counselor al Fixator Application L Unknown 10/17/24 Unknown Unknown FDA Start: 10-17-2024 Extremity On Awake Counselor al Fixator Application L Unknown 10/17/24 Unknown Unknown FDA Start: 10-17-2024 Extremity On Awake Counselor al Fixator Application L Unknown 10/17/24 Unknown Unknown FDA Start: 10-17-2024 Extremity On Awake Counselor al Fixator Application L Unknown 10/17/24 Unknown Unknown FDA Start: 10-17-2024 Extremity On Awake Counselor al Fixator Application L Unknown 10/17/24 Unknown Unknown FDA Start: 10-17-2024 Extremity On Awake Counselor al Fixator Application L Unknown 10/17/24 Unknown Unknown FDA Start: 10-17-2024 Extremity On Awake Counselor al Fixator Application L Unknown 10/17/24 Unknown Unknown FDA Start: 10-17-2024 Extremity On Awake Counselor al Fixator Application L Unknown 10/17/24 Unknown Unknown FDA Start: 10-17-2024 Extremity On Awake Counselor al Fixator Application L Unknown 10/17/24 Unknown Unknown FDA Start: 10-17-2024 Extremity On Awake Counselor al Fixator Application L Unknown 10/17/24 Unknown Unknown FDA Start: 10-17-2024 Extremity On Awake Counselor al Fixator Application L Unknown 10/17/24 Unknown Unknown FDA Start: 10-17-2024 Extremity On Awake Counselor al Fixator Application L Unknown 10/17/24 Unknown Unknown FDA Start: 10-17-2024 Extremity On Awake Counselor al Fixator Application L Unknown 10/17/24 Unknown Unknown FDA Start: 10-17-2024 Extremity On Awake Counselor al Fixator Application L Unknown 10/17/24 Unknown Unknown FDA Start: 10-17-2024 Extremity On Awake Counselor al Fixator Application L Unknown 10/17/24 Unknown Unknown FDA Start: 10-17-2024 Extremity On Awake Counselor al Fixator Application L Unknown 10/17/24 Unknown Unknown FDA Start: 10-17-2024 Extremity On Awake Counselor al Fixator Application L Unknown 10/17/24 Unknown Unknown FDA Start: 10-17-2024 Extremity On Awake Counselor al Fixator Application L Unknown 10/17/24 Unknown Unknown FDA Start: 10-17-2024 Extremity On Awake Counselor al Fixator Application L Unknown 10/17/24 Unknown Unknown FDA Start: 10-17-2024 Extremity On Awake Counselor al Fixator Application L Unknown 10/17/24 Unknown Unknown FDA Start: 10-17-2024 Extremity On Awake Counselor al Fixator Application L Unknown 10/17/24 Unknown Unknown FDA Start: 10-17-2024 Extremity On Awake Counselor al Fixator Application L Unknown 10/17/24 Unknown Unknown FDA Start: 10-17-2024 Extremity On Awake Counselor al Fixator Application L Unknown 10/17/24 Unknown Unknown FDA Start: 10-17-2024 Extremity On Awake Counselor al Fixator Application L Unknown 10/17/24 Unknown Unknown FDA Start: 10-17-2024 Extremity On Awake Counselor al Fixator Application L Unknown 10/17/24 Unknown Unknown FDA Start: 10-17-2024 Extremity On Awake Counselor al Fixator Application L Unknown 10/17/24 Unknown Unknown FDA Start: 10-17-2024 Extremity On Awake Counselor al Fixator Application L Unknown 10/17/24 Unknown Unknown FDA Start: 10-17-2024 Extremity On Awake Counselor al Fixator Application L Unknown 10/17/24 Unknown Unknown FDA Start: 10-17-2024 Extremity On Awake Counselor al Fixator Application L Unknown 10/17/24 Unknown Unknown FDA Start: 10-17-2024 Extremity On Awake Counselor al Fixator Application L Unknown 10/17/24 Unknown Unknown FDA Start: 10-17-2024 Extremity On Awake Counselor al Fixator Application L Unknown 10/17/24 Unknown Unknown FDA Start: 10-17-2024 Extremity On Awake Counselor al Fixator Application L Unknown 10/17/24 Unknown Unknown FDA Start: 10-17-2024 Extremity On Awake Counselor al Fixator Application L Unknown 10/17/24 Unknown Unknown FDA Start: 10-17-2024 Extremity On Awake Counselor al Fixator Application L Unknown 10/17/24 Unknown Unknown FDA Start: 10-17-2024 Extremity On Awake Counselor al Fixator Application L Unknown 10/17/24 Unknown Unknown FDA Start: 10-17-2024 Goals Date Patient Goal Desired Activity /State Functional Status Date Assessment Result Facility 12-29-2024 Functional status Stand and pivot [facility] Work Phone: 12-21-2024 Functional status Activity Abili ty Unable to Assess [facility] Work Phone: 10-04-2024 Functional Status Room located n [facility] nursing station, Door open, Bathroom light on, Non-Slip footwear, Room check performed [facility] 10-04-2024 Functional Status [facility] 10-04-2024 Functional Status [facility] 10-04-2024 Functional Status Breakfast Percent 80 [facility] 10-04-2024 Functional Status [facility] 10-03-2024 Functional Status Done [facility] 10-03-2024 Functional Status Sequential Com pression Device bilateral knee high removed/off [facility] 10-02-2024 Functional Status ID band on, Call device within reach, Bed in low position [facility] 02-01-2024 Functional Status Room check performed [facility] 02-01-2024 Functional Status [facility] 02-01-2024 Functional Status [facility] 02-01-2024 Functional Status Maintained [facility] 01-31-2024 Functional Status [facility] 01-31-2024 Functional Status 7pm-7am [facility] 01-31-2024 Functional Status Living Situati on Lives with family [facility] 01-31-2024 Functional Status Skin Care Prev entative Intervention(s) heel(s)s elevated, padded oxygen tubing, turn and position system [facility] 01-31-2024 Functional Status [facility] 01-31-2024 Functional Status Independent [facility] 01-30-2024 Functional Status Standard Safet y ID band on, Call device within reach, Bed in low position, Wheels locked, Upper/Half-Length side-rails up, personal items within reach, Bedside Cart Locked, Visitor at bedside [facility] 08-09-2023 Functional Status Awake, Resting [facility] 06-13-2023 Functional Status ID band on, Call device within reach [facility] 06-09-2023 Functional Status Room check performed [facility] 06-09-2023 Functional Status [facility] 06-09-2023 Functional Status [facility] 06-09-2023 Functional Status [facility] 06-08-2023 Functional Status Home independe ntly, Lives with significant other [facility] 06-08-2023 Functional Status Skin Care Prev entative Intervention(s) padded oxygen tubing [facility] 06-08-2023 Functional Status bilateral knee high removed/off [facility] 06-07-2023 Functional Status Sensory Deficits None [facility] 05-05-2023 Functional Status Assistive Device None [facility] 05-05-2023 Functional Status Standard Safet y ID band on, Call device within reach, Bed in low position, Wheels locked, Visitor at bedside [facility] 12-23-2022 Functional Status Ambulating in room, Awake [facility] 12-23-2022 Functional Status Maintained [facility] 10-27-2022 Functional Status Room check performed [facility] 10-27-2022 [facility] 10-25-[facility]22 Functional Status Independent [facility] 10-24-2022 Functional Status Standard Safet y ID band on, Call device within reach, Bed in low position, Wheels locked, Upper/Half-Length side-rails up, personal items within reach, Visitor at bedside [facility] 07-15-2022 Functional Status Room check performed [facility] 07-11-2022 Functional Status Up ad traci [facility] Mental Status Date Assessment Result Facility 12-29-2024 Cognitive function Voice/Name [facility] Work Phone: 12-28-2024 Cognitive function Awake;Alert;A ppropriate;Follo ws Commands [facility] Work Phone: 12-20-2024 Cognitive function Appropriate;Cooperativ e [facility] Work Phone: 12-19-2024 Cognitive function Voice/Name [facility] Work Phone: 10-04-2024 Mental Status Oriented x 4 [facility] 10-04-2024 Mental Status [facility] 10-04-2024 Mental Status [facility] 10-02-2024 Mental Status Orientation Oriented x 4 [facility] 02-01-2024 Mental Status Orientation Oriented x 4 [facility] 02-01-2024 Mental Status [facility] 01-31-2024 Mental Status [facility] 01-31-2024 Mental Status [facility] 01-30-2024 Mental Status Orientation Oriented x 4 [facility] 08-09-2023 Mental Status Oriented x 4 [facility] 06-13-2023 Mental Status Orientation Oriented x 4 [facility] 06-09-2023 Mental Status Oriented x 4 [facility] 06-09-2023 Mental Status [facility] 06-09-2023 Mental Status [facility] 06-08-2023 Mental Status [facility] 05-05-2023 Mental Status Orientation Oriented x 4 [facility] 05-05-2023 Mental Status [facility] 12-23-2022 Mental Status Oriented x 4 [facility] 10-27-2022 Mental Status Orientation Oriented x 4 [facility] 10-27-2022 Mental Status [facility] 10-25-2022 Mental Status Orientation Oriented x 4 [facility] 10-24-2022 Mental Status [facility] 10-23-2022 Cognitive function Voice/Name [facility] Work Phone: 07-15-2022 Mental Status Oriented x 4 [facility] 07-11-2022 Mental Status Oriented x 4 [facility] Clinical Notes 02-07-2022 to 12-30-2024 Note [...] Locations *1: This test was performed at: [facility], [address] [place] [address], [address] , [facility] 12-30-2024 Note . MICRO - Microbiology PROCEDURE: [...] Locations *1: This test was performed at: [facility], [address] [place] [address], [id number]- , [facility] 12-29-2024 Discharge summary Note Date/Time December 29, 2024 11:[address] [place] [address] Medical Records Department [address] [place] [address] [facility] MR#: [id number] Acct: [id number] Name: WARRENCARLOS ALBERTO Jr. Rep #:[id number] : 1970 54 From: Tricia Carvalho MD PCP: Dr. Jhonatan Garcia, DO Status:ADM IN Certification of patient admission REQUIRED AT TIME OF ADMISSION. I CERTIFY THAT POST-HOSPITAL ECF SERVICES ARE REQUIRED TO BE GIVEN ON AN IN-PATIENT BASIS BECAUSE OF THE ABOVE NAMED PATIENT'S NEED FOR SENIOR CARE CARE ON A CONTINUING BASIS FOR THE CONDITION(S) FOR WHICH HE/SHE WAS RECEIVINGIN-PATIENT HOSPITAL SERVICES PRIOR TO HIS/HER TRANSFER TO [facility]. 12/29/24 1114<Electronically signed by Tricia Carvalho MD> [...] on xarelto Allergies/Procedures Done in Hospital Allergies Xnhhiql-SXQ-YaM Reductase Inhibitor Allergy (Mild, Verified 12/27/24 23:23) [...] in before D/C Order can be placed): [facility] 12/29/24 1114 <Electronically signed by Tricia Carvalho MD> Cosigner Signature (if applicable): CC: STACEY Ramirez; [...] Forman MD; YAMILKA Jeronimo; YAMILKA Lee ~ [facility] Work Phone: 1(868) 557-433608-03-2025 Discharge summary [facility] Medical Records Department [address] [place] [address] [address] [facility] MR#: [id number] Acct: [id number] Name: CARLOS ALBERTO HOROWITZ JrEverett Rep #:[id number] : 1970 54 From: Tricia Carvalho MD PCP: Dr. Jhonatan Garcia DO Status:ADM IN Certification of patient admission REQUIRED AT TIME OF ADMISSION. I CERTIFY THAT POST-[facility]OSPITAL [facility] SERVICES ARE REQUIRED TO BE GIVEN ON AN IN-PATIENT BASIS BECAUSE OF THE ABOVE NAMED PATIENT'S NEED FOR SENIOR CARE CARE ON A CONTINUING BASIS FOR THE CONDITION(S) FOR WHICH HE/SHE WAS RECEIVINGIN-PATIENT HOSPITAL SERVICES PRIOR TO HIS/HER TRANSFER TO [facility]. 12/29/24 1114 Diet Diet Order/Speech Therapy: INPATIENT [...] on xarelto Allergies/Procedures Done in Hospital Allergies Vcleqfe-NDD-IuY Reductase Inhibitor Allergy (Mild, Verified 12/27/24 23:23) [...] Keagan Garrett; Shaina Alatorre; Melissa Love; Ezio yT; Gio Forman; Ruperto Haynes; Landon Ramirez NP; [...] in before D/C Order can be placed): [facility] 12/29/24 1114 Cosigner Signature (if applicable): [...] Forman MD; YAMILKA Jeronimo; YAMILKA Lee ~ [facility]08-03-2025 [facility]08-03-2025 Note. MICRO - Microbiology PROCEDURE: Blood Culture [...] Locations *1: This test was performed at: [facility], [address] [place] [address], [address]- , [facility]08-03-2025 Note. MICRO - Microbiology PROCEDURE: Blood Culture [...] Locations *1: This test was performed at: [address] [id number] Note. MICRO - Microbiology PROCEDURE: Blood Culture [...] Locations *1: This test was performed at: [address], [address] [place] [address] [id number] Note. MICRO - Microbiology PROCEDURE: Blood Culture [...] Locations *1: This test was performed at: [facility], [address] [place] [address], [id number]- , [facility] [id number] Progress note Author [facility] Note Date/Time December 28, 2024 2:4 8pm [facility] Medical Records Department [address] [place] [address] Progress Note 12/28/24 1118 MR#: [id number] Acct: [id number] Name: CARLOS ALBERTO HOROWITZ Jr. Rep #:[id number] : 1970 54 From: Tricia Carvalho MD PCP: Dr. Jhonatan Garcia, DO Status:ADM IN Location: [place] [address] Subjective Subjective Patient seen and examined. He [...] (Auto) 68.5, Lymph % (Auto) 17.2 L, [place] % (Auto) 11.8 H, Eos % (Auto) [...] Clarity Clear, Urine pH 6.0, Ur Specific [place] 1.015, Urine Protein 15 H, Urine Glucose [...] % (Auto) 65.2, Lymph % (Auto) 19.9, [place] % (Auto) 11.6 H, Eos % (Auto) [...] IMPRESSION: No acute cardiopulmonary disease. Reading Location: [facility] Physical Exam Const alert, oriented x3 and [...] on xarelto Charges/Coding Visit Charges Inpatient E&M: 97377 Subs Hosp L2 12/28/24 1448 <Electronically signed by Tricia Carvalho MD> Tricia Carvalho MD Cosigner Signature (if applicable): CC: ~ Signed [facility] Work Phone: 1(543) 529-692608-02-2025 Progress note [facility] Medical Records Department [address] [place] [address] Progress Note 12/28/24 1118 MR#: [id number] Acct: [id number] Name: CARLOS ALBERTO HOROWITZ Jr. Rep #:[id number] : 1970 54 From: Tricia Carvalho MD PCP: Dr. Jhonatan Garcia, DO Status:ADM IN Location: [place] [address] Subjective Subjective Patient seen and examined. He [...] (Auto) 68.5, Lymph % (Auto) 17.2 L, [place] % (Auto) 11.8 H, Eos % (Auto) [...] Clarity Clear, Urine pH 6.0, Ur Specific [place] 1.015, Urine Protein 15 H, Urine Glucose [...] % (Auto) 65.2, Lymph % (Auto) 19.9, [place] % (Auto) 11.6 H, Eos % (Auto) [...] IMPRESSION: No acute cardiopulmonary disease. Reading Location: [facility] Physical Exam Const alert, oriented x3 and [...] on xarelto Charges/Coding Visit Charges Inpatient E&M: 38227 Subs Hosp L2 12/28/24 1448 Tricia Carvalho MD Cosigner Signature (if applicable): CC: ~ Signed [facility]08-02-2025 History and physical note Author Keagan Delgado [facility] Note Date/Time December 28, 2024 6:0 9am [facility] Medical Records Department [address] [place] [address] H&P Exam - Hospitalist 12/28/24 0307 MR#: [id number] Acct: [id number] Name: CARLOS ALBERTO HOROWITZ Lucian Kelsey Rep #:[id number] : 1970 54 From: Keagan Tavares DO PCP: Dr. Jhonatan Garcia, Status:ADM IN Location: [place] [address] HPI - General General Date of Admission: 12/28/24 Date of Service: 12/28/24 Chief Complaint: Palpitations. HPI Narrative CARLOS ALBERTO WARREN, is a 54 M with a past [...] 7 PM yesterday evening who presents to [facility] complaining of palpitations. Mr. Horowitz reports his [...] is expected to extend beyond 2 midnights. [facility] Medical History (Updated 12/28/24 @ 05:[address] Nguyễn Al DO) Major depression Hypokalemia Paroxysmal atrial fibrillation [...] Type Severity Reaction Status Date / Time Orjqltw-DOH-WyE Reductase Allergy Mild Hives Verified 12/27/24 23:23 Inhibitor Iodinated Contrast Media AdvReac Intermediate Rash Verified 12/27/24 23:23 (contrast dye - iodinated) Social History housing: skilled nursing Smoking Status: Former smoker ROS ROS Narrative [...] (Auto) 68.5, Lymph % (Auto) 17.2 L, [place] % (Auto) 11.8 H, Eos % (Auto) [...] IMPRESSION: No acute cardiopulmonary disease. Reading Location: [facility] Assessment & Plan Assessment/Plan (1) Atrial fibrillation [...] troponin. Check TSH. Finally, we will consult [facility] see this patient on rounds [...] as previous. Give acetaminophen as needed for ovky-zs-nmtiabic (level 1-5/10) pain or fever. Give oxycodone [...] 75 minutes. Charges/Coding Visit Charges Inpatient E&M: 36548 Init Hosp L3 12/28/24 0609 <Electronically signed by Keagan Rowe DO> Cosigner Signature (if applicable): CC: Dr. Keagan Rowe DO; Dr. Jhonatan Garcia DO~ Signed [facility] Work Phone: 1(976) 347-698808-02-2025 Discharge summary Author Nguyễn Herberth [facility] Note Date/Time December 28, 2024 5:4 2am [facility] Medical Records Department [address] [place] [address] Emergency Department Summary 12/27/24 MR#: [id number] Acct: [id number] Name: CARLOS ALBERTO HOROWITZ Jr. Rep #:[id number] : 1970 54 From: Nguyễn Tavera PCP: Dr. Jhonatan Garcia DO Status:ADM IN Location: [place] [address] HPI History of Present Illness Chief Complaint: Shortness of Breath Informant: patient and EMS Narrative Narrative: Brought in by EMS from [facility] [place] palpitations feeling he was back in A- fib 10 PM 90 minutes prior to arrival. History of A-fib for years followed by cardiology in [place] ([place]). He had right ankle fracture displaced [...] in the past. Prior similar symptoms: Yes PFSH [facility] Medical History (Updated 12/28/24 @ 05:[address] Nguyễn Al DO) Major depression Hypokalemia Paroxysmal atrial fibrillation [...] Type Severity Reaction Status Date / Time Ndhawge-QFK-JvS Reductase Allergy Mild Hives Verified 12/27/24 23:23 Inhibitor Iodinated Contrast Media AdvReac Intermediate Rash Verified 12/27/24 23:23 (contrast dye - iodinated) Social History housing: skilled nursing Smoking Status: Former smoker ROS ROS ED [...] to 140s. 2230: I spoke with covering curator of collections Dr. Mitchell, discussed patient's history of being off Xarelto for couple days however did restart it at 7 AM symptoms were known to restart 90 minutes prior to arrival. He states okay to cardiovert. Patient last ate at 5 PM. Discussed this with patient who agrees. Will set up for cardioversion. 0031: Written consent risk and benefits discussed with the patient. campus monitor, capnography pulse ox oxygenation up at 4 [...] Cardiology, hospitalist This note was generated with PowerDMS dictation software. It may contain incorrect words, [...] (Auto) 68.5 Lymph % (Auto) 17.[address] [place] % (Auto) 11.8 H Eos % (Auto) [...] IMPRESSION: No acute cardiopulmonary disease. Reading Location: [facility] Procedures Procedural Sedation 1 (Initial Baseline): Consent Signed: Yes Any Problems With Anesthesia: No You/Your family experience fever (hyperthermia) w/anesthesia: Unknown Sedation medication: Propofol Dose: 80 Route: IV Maliampati Score: Class III ASA Classification: III Critical Care Time Critical Care Time: Yes Critical care time (excluding procedures): 30-74 minutes, Discussing w/Patient &/or Family/Mailroom Associate, Discussing w/Consultants, Arranging Admission or Transfer, Performing Direct Patient Care at Bedside and - (45 minutes) Discharge Plan Dx/Rx/DC Orders Clinical Impression: Atrial fibrillation with RVR, Bacteremia, Palpitations, Postoperative infection Disposition Disposition: Acute Care Hospital [facility] Discharge Date/Time: 12/28/24 04:06 What to do if you have Problems For any increased pain, shortness of breath, bleeding, nausea or vomiting, chest pain, or any unexpected problems, contact your Primary Care Provider. Call [facility] ([phone]) or report to the closest Emergency Room. Call 911 if necessary. 12/28/24 0542 <Electronically signed by Nguyễn Tavera> Cosigner Signature (if applicable): CC: Dr. Jhonatan Garcia DO ~ Signed [facility] Work Phone: 1(194) 709-947808-02-2025 History and physical note [facility] Medical Records Department [address] [place] [address] H&P Exam - Hospitalist 12/28/24 0307 MR#: [id number] Acct: [id number] Name: CARLOS ALBERTO HOROWITZ Jr. Rep #:[id number] : 1970 54 From: Keagan Tavares DO PCP: Dr. Jhonatan Garcia DO Status:ADM IN [facility] H[facility] - General General Date of [...] 7 PM yesterday evening who presents to [facility] complaining of palpitations. Mr. Horowitz reports his [...] that is expectedto extend beyond 2 midnights. [facility] Medical History (Updated 12/28/24 @ 05:[address] Nguyễn Al DO) Major depression Hypokalemia Paroxysmal atrial fibrillation [...] Type Severity Reaction Status Date / Time Yvypxqb-STC-SoE Reductase Allergy Mild Hives Verified 12/27/24 23:23 Inhibitor Iodinated Contrast Media AdvReac Intermediate Rash Verified 12/27/24 23:23 (contrast dye - iodinated) Social History housing: skilled nursing Smoking Status: Former smoker ROS ROS Narrative [...] (Auto) 68.5, Lymph % (Auto) 17.2 L, [place] % (Auto) 11.8 H, Eos % (Auto) [...] IMPRESSION: No acute cardiopulmonary disease. Reading Location: [id number] Assessment & Plan Assessment/Plan (1) Atrial fibrillation [...] troponin. Check TSH. Finally, we will consult [facility] see this patient on rounds [...] as previous. Give acetaminophen as needed for jeum-qb-ymbefivo (level 1-5/10) pain or fever. Give oxycodone [...] diet. FSBS q. AC/HS plus SSI. Check QgxO7zvz objectively assess quality of diabetic control. 8. [...] 75 minutes. Charges/Coding Visit Charges Inpatient E&M: 44451 Init Hosp 12/28/24 0609 Cosigner Signature (if applicable): CC: Dr. Keagan Rowe DO; Dr. Jhonatan Garcia DO~ Signed [facility]08-02-2025 Discharge summary [facility] Medical Records Department [address] [place] [address] Emergency Department Summary 12/27/24 MR#: [id number] Acct: [id number] Name: CARLOS ALBERTO HOROWITZ Jr. Rep #:[id number] : 1970 54 From: Nguyễn Tavera PCP: Dr. Jhonatan Garcia DO Status:ADM IN Location: [place] [address] HPI History of Present Illness Chief Complaint: Shortness of Breath Informant: patient and EMS Narrative Narrative: [facility] 10 PM 90 minutes prior to arrival. History of A-fib for years followed by cardiology in [place] ([place]). He hadright ankle fracture displaced 8 [...] in the past. Prior similar symptoms: Yes PFSH [facility] Medical History (Updated 12/28/24 @ 05:[address] Nguyễn Al DO) Major depression Hypokalemia Paroxysmal atrial fibrillation [...] Type Severity Reaction Status Date / Time Rvvspav-WJO-KfG Reductase Allergy Mild Hives Verified 12/27/24 23:23 Inhibitor Iodinated Contrast Media AdvReac Intermediate Rash Verified 12/27/24 23:23 (contrast dye - iodinated) Social History housing: skilled nursing Smoking Status: Former smoker ROS ROS ED [...] to 140s. 2230: I spoke with covering curator of collections Dr. Mitchell, discussed patient's history of being off Xarelto for couple days however did restart it at 7 AM symptoms were known to restart 90 minutes prior to arrival. He states okay to cardiovert. Patient last ate at 5 PM. Discussed this with patient who agrees. Will set up for cardioversion. 0031: Written consent risk and benefits discussed with the patient. campus monitor, capnography pulse ox oxygenation up at 4 [...] Cardiology, hospitalist This note was generated with PowerDMS dictation software. It may contain incorrect words, [...] (Auto) 68.5 Lymph % (Auto) 17.[address] [place] % (Auto) 11.8 H Eos % (Auto) [...] IMPRESSION: No acute cardiopulmonary disease. Reading Location: [facility] Procedures Procedural Sedation 1 (Initial Baseline): Consent [...] Postoperative infection Disposition Disposition: Acute Care Hospital [facility] Discharge Date/Time: 12/28/24 04:06 What to do if you have Problems For any increased pain, shortness of breath, bleeding, nausea or vomiting, chest pain, or any unexpected problems, contact your Primary Care Provider. Call [facility] ([phone]) or report to the closest Emergency Room. Call 911 if necessary. 12/28/24 0542 Cosigner Signature (if applicable): CC: Dr. Jhonatan Garcia DO ~ Signed [facility]08-01-2025 Radiology Diagnostic study note [facility] Imaging Services [address] [place] [address] [id number] Chest 1 View (Portable) MR#: [id number] Acct: [id number] Name: CARLOS ALBERTO HOROWITZ Jr. Rep #: [id number] : 1970 M 54 From: Fabien Pelaez MD PCP: Dr. Jhonatan Garcia DO Status: REG ER Study:Chest 1 View (Portable) Date of Exam: 12/27/24 Exam# [id number] Ordering Dr: Nguyễn Al DO PROCEDURE: CHEST 1 VIEW (PORTABLE) 12/27/2024 REASON FOR EXAM: SOB TECHNIQUE: Frontal view of the chest. COMPARISON: 12/19/2024 FINDINGS: Devices: Right upper extremity PICC with catheter tip at the superior cavoatrialjunction. Lungs/Pleura: Clear. No pneumothorax or pleural effusion. Heart/Mediastinum: Mild cardiomegaly. Bones/Soft tissues: Within normal limits. RAD/Chest 1 View (Portable) IMPRESSION: No acute cardiopulmonary disease. Reading Location: [id number] CC: Dr. Jhonatan Garcia DO; Dr. Nguyễn Al DO ~ Physician Non Invasive Cardiologist: Signed [facility]07-31-2025 Hospital Discharge instructions Patient Education 12/26/2024 15:53:13 Radiology- PICC Line 03/08/2024(CUSTOM) CLANCY PICC Line Discharge Instructions Interventional Radiology [facility] [address] [address] A PICC (peripherally inserted central catheter) is a chcf IV access device. A catheter is inserted [...] There are also sleeves soldat some drug [employer] that can be used to protect the [...] physician to coordinate weekly flushes. Pain Control: Geme-rsy-vkqpnfz pain medication should be used for pain [...] instruction below: 8:00 am- 5:00 pm call [phone] After 24 hours, contact the physician who ordered this procedure for you. Special Instructions: Follow Up Care 12/23/2024 17:41:25 With:GIRAM CORREA APRN-BUILDING PRINCIPAL Address: [address] [place] [address]- [phone] When:1-2 days Comments:Please call the office to schedule a hospital follow up appointment. With:MAYRA ELLIOTT BA, MD, Infectious Disease, Infectious Disease Group Address: [facility] [address] [address] [phone] When:Within 3 Week(s) With:NANI VIVEROS DO, Orthopedic Address: [address] [place] [address]- [phone] When:Within 1 Week(s) Comments:Please call office SARA to schedule follow up appointment in 1 week for repeat XRs and skin check. [facility] 07-31-2025 Note Discharge Instructions Thank you for allowing [facility] to assist you with your healthcare needs. [...] When:Within 1-2 days Where:[address] [place] [address]- [phone] Additional Information: Please call the office to schedule a hospital follow up appointment. Follow Up with MAYRA ELLIOTT BA, MD, Infectious Disease, Infectious Disease Group When:In 3 weeks Where:[facility] [address] [place] [address] [phone] Follow Up with NANI VIVEROS DO Orthopedic When:In 1 week Where:[address] [place] [address] [phone] Additional Information: Please call office SARA to [...] Postoperative pain Duration: 7 Days Pickup at [facility]/pharmacy #[id number] New ceFAZolin (CeFAZolin 2 gm IV Syringe) [...] bedtime Pharmacy Information [id number] [address] [place], [place] [phone] What How Much When Comments Stop Taking [...] medication providers or retail pharmacies. Education Materials CLANCY PICC Line Discharge Instructions Interventional Radiology [facility] [address] [place] [address] A PICC (peripherally inserted central catheter) is a chcf IV access device. A catheter is inserted [...] physician to coordinate weekly flushes. Pain Control: Bdsl-sqr-wlljqwq pain medication should be used for pain [...] instruction below: 8:00 am- 5:00 pm call [phone] After 24 hours, contact the physician who ordered this procedure for you. Special Instructions: Additional Information VACCINATE! IT SAVES LIVES! Members of the community who have not yet received the COVID-19 vaccine and would like to receive it can visit one of [facility] vaccine clinics. There are many vaccine clinic locations within the [facility]. For locations and available times, please visit [email or web address]/. It is important to note that some COVID mobile vaccine clinics are held outdoors and may be canceled in rainy or stormy conditions. To learn more about pediatric vaccinations (ages 5-11), we invite you to visit the [facility] webpage. https://www.akronAudemats.org/pages/3753-Uriay-Yfilzqyzyon-Xlvrmglobr-Kjikb-Cuf stions.htmlTo learn more about the COVID-19 vaccine, we invite you to visit the CDC website for a list of frequently asked questions.https://www.cdc.gov/coronavirus/2019-ncov/vaccines/faq.html [employer] [facility] Patient Portal Access Instructions: Stay connected with your healthcare team and access your personal medical information anytime with the [facility] Patient Portal. Please follow the directions below to create your [facility] account: 1.Access the email account you provided upon registration to the hospital/physician office.2.Look for an invitation email from [facility].3.Open the email and access the invitation link: AcceptInvitation to [facility].4.Fill in the required orr to create your account. To access your account, visit [email or web address]. Click the blue button labeled "Access Patient Portal" and then log in with the username and password that you created in the steps above. You will be able to view your test results, lab results, a summary of your visits, upcoming appointments and more. There is also a convenient messaging option where you can send secure messages to your p [employer] Security[employer]. In addition, you will have the ability to download any documents or summaries to your computer and/or send the information securely to a physician. Remember that your healthcare information is confidential, so carefully consider who you will allowto register on the [facility] Patient Portal for access to your information. You can also access the [facility] Patient Portal on the [facility] Anywhere frida. Simply click on "Patient Portal" and then log into your account. If you would like to receive a full copy of your medical records, please contact the [facility] Medical Records Department by calling [phone], Monday through Monday between 8 a.m. and [...] Call your local pharmacy or go to [email or web address] to find one close to you.3.Make use of household items: Use cat litter or old coffee grounds to dispose medications if other options arenot available. Mix your drugs with these household products, seal them in an airtight container andthrow it into the garbage. Call [facility]: [phone] to be sure your drugs can be [...] that I should contact my d octor. Patient/Telecommunications Manager Signature: Date/Time: Relationship to Patient: Witness Name/Signature: Date/Time: [facility] Hospital[facility]iavasis40-63-0488 Procedure note VASCULAR ACCESS TEAM POST PROCEDURE [...] Deny Amin RN on 12/26/2024 03:21 PM [facility] HospitalOfhrhbyq26-62-1540 Discharge summary Date of Service 12/26/24 Discharge [...] IV antibiotics and faxed to Dr. Marshall [phone]. Allergies Contrast dye Statins myalgia Procedures Date of Service 12/24/2024 Indication/Consent Ray is a 54-year-old male who presented to [facility] with right ankle sprain cellulitis and [...] follow-up appointment. Patient was evaluated while in [facility] ED and surgical intervention was recommended to [...] Surgeon(s) ANA LUISA DONOVAN DO (Primary Surgeon) Brassiere Cup Mold Cutter(s) Suze Mishra DO PGY 2 Adriano Mack DO PGY1 Adriano Brooke DO PGY1 Type of Anesthesia CHANTAL CARTER DO (Tech Ed/Woodshop Teacher) AUGUSTO BANDAHOG SAWYER (Provider) Estimated Blood Loss 5 cc Consults [...] needed as needed for low blood sugar. waubXIJiuod27 Milliliter by mouth every 4 hours as [...] When:Within 1-2 days Where:[address] [place], [place] [address]- [phone] Additional Information: Please call the office to schedule a hospital follow up appointment. Follow Up with MAYRA ELLIOTT BA, MD, Infectious Disease, Infectious Disease Group When:In 3 weeks Where:[facility] [address] [place] [address] [phone] Follow Up with NANI VIVEROS DO, Orthopedic When:In 1 week Where:[address] [facility] [place] [address] [phone] Additional Information: Please call office SARA to [...] Time Spent 50min Digitally Signed by PERNELL SIMONS MD on 12/26/2024 03:11 PM [facility] HospitalGpdckvee24-70-0369 Note Discharge Instructions Thank you for allowing [facility] to assist you with your healthcare needs. [...] When:Within 1-2 days Where:[address] [place] [phone] Follow Up with MAYRA ELLIOTT BA, MD, Infectious Disease, Infectious Disease Group When:In 3 weeks Where:[facility] [address] [place] [phone] Follow Up with NANI VIVEROS DO, Orthopedic When:In 1 week Where:[address] [facility], [place] [address] [phone] Additional Information: Please call office SARA to [...] Postoperative pain Duration: 7 Days Pickup at [facility]/pharmacy #3154 New ceFAZolin (CeFAZolin 2 gm IV Syringe) [...] by mouth Daily at bedtime Pharmacy Information [facility]/pharmacy #4605: [address] [place], [place] [phone] What How Much When Comments Stop Taking [...] to receive it can visit one of [facility] vaccine clinics. There are many vaccine clinic locations within the [facility]. For locations and available times, please visit https://[email or web address].[place].gov/. It is important to note that some COVID mobile vaccine clinics are held outdoors and may be canceled in rainy or stormy conditions. To learn more about pediatric vaccinations (ages 5-11), we invite you to visit the [facility] webpage. https://www.[facility].org/pages/0699-Ocizt-Uobyvbycswf-Bghddgqdno-Dkwbn-Ror stions.htmlTo learn more about the COVID-19 vaccine, we invite you to visit the CDC website for a list of frequently asked questions.https://www.cdc.gov/coronavirus/2019-ncov/vaccines/faq.html [employer] Patient Portal Access Instructions: Stay connected with your healthcare team and access your personal medical information anytime with the [employer] Patient Portal. Please follow the directions below to create your [facility] account: 1.Access the email account you provided upon registration to the hospital/physician office.2.Look for an invitation email from [facility].3.Open the email and access the invitation link: AcceptInvitation to [facility].4.Fill in the required orr to create your account. To access your account, visit larry.[employer] (f[employer])t. Click the blue button labeled "Access Patient [...] who you will allowto register on the [facility] Patient Portal for access to your information. You can also access the [facility] Patient Portal on the [facility] Anywhere frida. Simply click on "Patient Portal" and then log into your account. If you would like to receive a full copy of your medical records, please contact the [facility] Medical Records Department by calling [phone], Monday through Monday between 8 a.m. and [...] Call your local pharmacy or go to http://N[employer] K[employer] Haircare.Petpace/[email or web address] to find one close to you.3.Make use of household items: Use cat litter or old coffee grounds to dispose medications if other options arenot available. Mix your drugs with these household products, seal them in an airtight container andthrow it into the garbage. Call [facility]: [phone] to be sure your drugs can be [...] that I should contact my d octor. Patient/Telecommunications Manager Signature: Date/Time: Relationship to Patient: Witness Name/Signature: Date/Time: [facility] HospitalOouhsqon87-79-5748 Note Discharge Instructions Thank you for allowing [facility] to assist you with your healthcare needs. The following is importantdischarge information regarding your hospital visit. Your Care Team GIRMA CORREA OPEN DIE INSPECTOR-BUILDING PRINCIPAL Your Diagnosis CHF with cardiomyopathy History of [...] When:Within 1-2 days Where:[address] [facility] [place] [address] [phone] Follow Up with MAYRA ELLIOTT BA, MD, Infectious Disease, Infectious Disease Group When:In 3 weeks Where:[facility] [address] [place] [phone] Follow Up with NANI VIVEROS DO, Orthopedic When:In 1 week Where:[address] [facility], [place] [address] [phone] Additional Information: Please call office SARA to [...] Postoperative pain Duration: 7 Days Pickup at [facility]/pharmacy #7275 New ceFAZolin (CeFAZolin 2 gm IV Syringe) [...] by mouth Daily at bedtime Pharmacy Information [facility]/pharmacy #4605: [address] [place], [place] [phone] What How Much When Comments Stop Taking [...] to receive it can visit one of [facility] vaccine clinics. There are many vaccine clinic locations within the [facility]. For locations and available times, please visit https://[email or web address].[place].gov/. It is important to note that some COVID mobile vaccine clinics are held outdoors and may be canceled in rainy or stormy conditions. To learn more about pediatric vaccinations (ages 5-11), we invite you to visit the [facility] webpage. https://www.[facility]STX [employer] Management [employer]icess.org/pages/8433-Xmdzh-Yiqmwgzfdel-Zymupumecv-Uczwq-Jeg stions.htmlTo learn more about the COVID-19 vaccine, we invite you to visit the CDC website for a list of frequently asked questions.https://www.cdc.gov/coronavirus/2019-ncov/vaccines/faq.html [facility] Patient Portal Access Instructions: Stay connected with your healthcare team and access your personal medical information anytime with the [facility] Patient Portal. Please follow the directions below to create your [facility] account: 1.Access the email account you provided upon registration to the hospital/physician office.2.Look for an invitation email from [facility].3.Open the email and access the invitation link: AcceptInvitation to [facility].4.Fill in the required orr to create your account. To access your account, visit [email or web address]. Click the blue button labeled "Access Patient [...] who you will allowto register on the [facility] Patient Portal for access to your information. You can also access the [facility] Patient Portal on the [facility] Anywhere frida. Simply click on "Patient Portal" and then log into your account. If you would like to receive a full copy of your medical records, please contact the [facility] Medical Records Department by calling [phone], Monday through Monday between 8 a.m. and [...] Call your local pharmacy or go to [email or web address]/5S0Rj9c to find one close to you.3.Make use of household items: Use cat litter or old coffee grounds to dispose medications if other options arenot available. Mix your drugs with these household products, seal them in an airtight container andthrow it into the garbage. Call [facility]: [phone] to be sure your drugs can be [...] that I should contact my d octor. Patient/Telecommunications Manager Signature: Date/Time: Relationship to Patient: Witness Name/Signature: Date/Time: [facility] HospitalPzhwzzuy48-22-[address] Simons called IV [...] by SHAHEEN Allen on 12/26/2024 11:54 AM [facility] HospitalTvtqqilc37-56-[address] Simons called IV [...] by SHAHEEN Allen on 12/26/2024 11:54 AM [facility] HospitalHrfvgnhh10-19-8317 Note Date of Service 12/25/24 Subjective 54 [...] fax results to attention Dr. Elliott at [phone]. Objective Vitals and Measurements T: 36.7 C [...] surgical intervention. Plan for PICC line and chcf IV antibiotics per ID. He will remain [...] PERNELL SIMONS MD on 12/25/2024 04:09 PM [facility] HospitalPasgjquu70-23-1566 Infectious disease Progress note Date of Service [...] Result Date: December 24, 2024 Verified By: DARNELL MOLINA MD CLINICAL STATEMENT: IMPRESSION: Intraprocedural fluoroscopic spot images [...] fax results to attention Dr. Elliott at [phone]. Please make outpatient follow-up with Dr. Elliott [...] by ORI TOMLIN on 12/25/2024 02:20 PM [facility] HospitalZialfutl78-36-4217 Orthopaedic surgery Progress note Date of Service [...] obturator, femoral, LCN, DPN, SPN, sural, saphenous, M/BUSINESS SOLUTIONS ANALYST - Calf soft and non-tender Weight Dosing [...] Digitally Signed by ANA LUISA DONOVAN DO [facility] HospitalVwnxenlk25-89-6322 Anesthesiology Consult note Patient: CARLOS ALBERTO HOROWITZ [...] CHANTAL WHEATLEY DO on 12/24/2024 06:46 PM [facility] HospitalJhnamteb17-03-0674 Note* Exam Date Time Procedure Performing Provider Status 12/24/24 5:26 PM XR Fluoro 1-2 Hrs Tech Time Corin MOLINA MD; Auth (Verified) [id number] ORIGINAL EXAMINATION: SPOT FLUOROSCOPIC IMAGES 12/24/2024 5:26 [...] 3:52:11 AM Ordering Provider: ANA LUISA DONOVAN [facility] HospitalUwbansbj26-00-7799 Orthopaedic surgery Consult note Date of Service 12/23/24 Reason for Consultation Right ankle surgical site infection Referring Physician Emergency department History of Present Illness Patient is a 54-year-old male presented to [facility] due to purulence coming from his external fixator. Of note, on 10-17-2024 he was treated with close reduction and external fixation with ankle spanning external fixator by Dr. Viveros at [facility]. Patient reports he did attend his [...] FARZAD GIL DO on 12/23/2024 07:38 PM [facility] HospitalQfjbjopu93-06-3702 Anesthesiology Consult note Patient: CARLOS ALBERTO HOROWITZ [...] list: Medical Asthma exacerbation / SNOMED CT 9108049085 / Confirmed COPD exacerbation / SNOMED CT 8583441812 / Confirmed Atopic dermatitis / SNOMED CT 34290216 / Confirmed Atypical chest pain / SNOMED CT 366141526 / Confirmed Bacteremia / SNOMED CT 64034645 / Confirmed Morbid obesity with BMI of 40.0-44.9, adult / SNOMED CT 1006806442 / Confirmed Bronchitis / SNOMED CT 15922862 / Confirmed Cardiomyopathy / SNOMED CT 206715469 / Confirmed CHF with cardiomyopathy / SNOMED CT 23715135 / Confirmed Cough / SNOMED CT 05442859 / Confirmed Dental abscess / SNOMED CT 924039591 / Confirmed Depression / SNOMED CT 33383397 / Confirmed Dyspnea / SNOMED CT 863918273 / Confirmed Generalized anxiety disorder / SNOMED CT 48080907 / Confirmed Hypertension associated with type 2 diabetes mellitus / SNOMED CT 7358741717 / Confirmed Insomnia / SNOMED CT 238332765 / Confirmed LVH (left ventricular hypertrophy) / SNOMED CT 87815775 / Confirmed Moderate asthma / SNOMED CT 4596467656 / Confirmed Near syncope / SNOMED CT 6673720908 / Confirmed Chewing tobacco nicotine dependence / SNOMED CT 91707982 / Confirmed KOFFI (obstructive sleep apnea) / SNOMED CT 739518292 / Confirmed Right knee pain / SNOMED CT 6364598331 / Confirmed Paroxysmal atrial fibrillation / SNOMED CT 187308013 / Confirmed Screening for ischemic heart disease / SNOMED CT 000131910 / Confirmed Screening for colon cancer / SNOMED CT 207516769 / Confirmed Statin intolerance / SNOMED CT 5853489462 / Confirmed Tachyarrhythmia / SNOMED CT 75918131 / Confirmed Type 2 diabetes mellitus with hemoglobin A1c goal of less than 7.0% / SNOMED CT 239096702 / Confirmed Type 2 diabetes mellitus with hyperlipidemia / SNOMED CT 139880450 / Confirmed Resolved: Anxiety / SNOMED CT 04851739 Resolved: BMI 45.0-49.9, adult / SNOMED CT 6461995394 Resolved: Diabetes mellitus / SNOMED CT 657853069 Resolved: Hyperlipidemia / SNOMED CT 22122012 Resolved: Hypertension / SNOMED CT 2869503046 Resolved: Mass of arm / SNOMED CT 107208099 Resolved: Morbid obesity / SNOMED CT 531443714 Resolved: Obstructive sleep apnea / SNOMED CT 067558356 Resolved: Prediabetes / SNOMED CT 1289565405 Resolved: Right flank pain / SNOMED CT 049992004 Canceled: (HFpEF) heart failure with preserved ejection fraction / SNOMED CT 8685049893 Canceled: Right otitis media / SNOMED CT 783082054516211 Canceled: Persistent atrial fibrillation / SNOMED CT 8003894005 Canceled: Wheezing / SNOMED CT 34102683, Active Problems (33) Asthma exacerbation Atopic dermatitis [...] Histories Past Medical History: Resolved Morbid obesity (030334021): Resolved. Diabetes mellitus (999677270): Resolved. Hypertension (6935990818): Resolved. BMI 45.0-49.9, adult (5287035034): Resolved. Anxiety (90997554): Resolved. Prediabetes (3118339259): Resolved. Obstructive sleep apnea (821762027): Resolved. Right flank pain (333711401): Resolved. Hyperlipidemia (97972852): Resolved. Mass of arm (300491418): Resolved. Family History: Cancer Father Heart disease Mother Grandparent Stroke Father Procedure history: Excision (950180389) on 03/25/2024 at 53 Years. Comments: 03/26/2024 7:50 Karol Curry LPN excision of multilobulated lipomatous mass right forearm Echocardiogram (7027644015) on 01/31/2024 at 53 Years. Cardioversion (985564704) on 12/23/2022 at 52 Years. Echocardiogram (3641811805) on 11/11/2022 at 52 Years. Comments: 03/20/2023 [...] right atrial pressure is 15 mm Hg [facility] (8238547575). Comments: 07/11/2022 8:26 CRISTINO Sinha, SHAHEEN warner [...] Oral37.0 DegC (DEC 24 14:59) Heart Rate Vpjgbe13 bpm (DEC 24 08:10) ULV748 mmHg (DEC 24 14:59) DBP70 mmHg (DEC [...] Documentation reviewed: Current records. Assessment and Plan [place] Society of Anesthesiologists (ASA) physical status classification: [...] CHANTAL WHEATLEY DO on 12/24/2024 04:37 PM [facility] HospitalCiwtjpgm05-54-5243 Note Date of Service 12/24/24 Subjective 54 [...] PERNELL SIMONS MD on 12/24/2024 03:54 PM [facility] HospitalEnjujsxz81-11-6470 Infectious disease Consult note Date of Service 12/24/2024 Reason for Consultation Right ankle hardware infection Referring Physician Dr. Max History of Present Illness Patient is a 54-year-old male with past medical history of COPD, tobacco abuse, atrial fibrillation, type 2 diabetes, recent right ankle fracture requiring external fixation presents as a transfer from [place] on 12/23/2024 with worsening swelling, redness and [...] make his appointment as he was at [facility]. He states that he did not finish [...] by ORI TOMLIN on 12/24/2024 03:13 PM [facility] HospitalJhnnqjcf57-28-6660 Infectious disease Consult note Date of Service 12/24/2024 Reason for Consultation Right ankle hardware infection Referring Physician Dr. Max History of Present Illness Patient is a 54-year-old male with past medical history of COPD, tobacco abuse, atrial fibrillation, type 2 diabetes, recent right ankle fracture requiring external fixation presents as a transfer from [place] on 12/23/2024 with worsening swelling, redness and [...] make his appointment as he was at [facility]. He states that he did not finish [...] by ORI TOMLIN on 12/24/2024 03:13 PM [facility] HospitalVjrrvpzd49-96-2752 Note Date of Service Patient medically optimized [...] PERNELL SIMONS MD on 12/24/2024 07:21 AM [facility] HospitalNqdzccdp16-99-9714 History and physical note [facility] Hospitalist History and Physical Date [...] Vitals Signs(Last 24 hrs)__Last Charted Minimum Maximum OGM697(DEC 23 17:42)132(DEC 23 17:42)132(DEC 23 17:42) DBP83(DEC [...] SONNY MAX MD on 12/23/2024 09:52 PM [facility] HospitalOodcwaie15-66-2860 Note* Exam Date Time Procedure Performing Provider Status 12/23/24 9:45 PM XR Ankle Minimum 3 Views Right MICK LEGGETT MD; Auth (Verified) [id number] ORIGINAL EXAMINATION: THREE XRAY VIEWS OF THE [...] Sign Date: 12/23/2024 10:04:30 PM Ordering Provider: [facility]07-28-2025 Note* Exam Date Time Procedure Performing Provider Status 12/23/24 9:44 PM XR Ankle Minimum 3 Views Left TRACE CLARK MD; Auth (Verified) [id number] ORIGINAL EXAMINATION: THREE XRAY VIEWS OF THE [...] 12/23/2024 9:57:26 PM Ordering Provider: [facility]ZAD GIL [id number] Consult note Date of Service 12/23/24 Reason for Consultation Right ankle surgical site infection Referring Physician Emergency department History of Present Illness Patient is a 54-year-old male presented to [facility] due to purulence coming from his external fixator. Of note, on 10-17-2024 he was treated with close reduction and external fixation with ankle spanning external fixator by Dr. Viveros at [facility]. Patient reports he did attend his [...] FARZAD GIL DO on 12/23/2024 07:38 PM [id number] Evaluation + Plan noteExtracted from: Title:Clinical Document Author:SONNY MAX MD Date:12/23/24 [facility] Medicine Hospitalist History and Physical Date [...] Vitals Signs(Last 24 hrs)__Last Charted Minimum Maximum FCK554(DEC 23 17:42)132(DEC 23 17:42)132(DEC 23 17:42) DBP83(DEC [...] Metabolic Panel 08/27/24 * N-Terminal proBNP 08/27/24 [facility] 07-26-2025 Discharge summary [facility] Medical Records Department [address] [place] [address] [facility] MR#: [id number] Acct: [id number] Name: CRALOS ALBERTO HOROWITZ Lucian Brito. Rep #:[id number] : 1970 54 From: Farzad mejia MD PCP: Dr. Jhonatan Garcia, DO Status:ADM BRENNA Certification of patient admission REQUIRED AT TIME OF ADMISSION. I CERTIFY THAT POST-HOSPITAL ECF SERVICES ARE REQUIRED TO BE GIVEN ON AN IN-PATIENT BASIS BECAUSE OF THE ABOVE NAMED PATIENT'S NEED FOR SENIOR CARE CARE ON A CONTINUING BASIS FOR THE CONDITION(S) FOR WHICH HE/SHE WAS RECEIVING IN-PATIENT HOSPITAL SERVICES PRIOR TO HIS/HER TRANSFER TO THE ECF. 12/21/24 0845 Diet Diet Order/Speech Therapy: INPATIENT [...] tissue disorders Allergies/Procedures Done in Hospital Allergies Adsffss-LBA-KuR Reductase Inhibitor Allergy (Mild, Verified 12/20/24 13:07) [...] in before D/C Order can be placed): [facility] Facility 12/21/24 0845 Cosigner Signature (if applicable): CC: Dr. Yaz Dee MD; Dr. Austin Estrada MD; Dr. Jhonatan Garcia DO ~ [facility]07-26-2025 Discharge summary [facility] Medical Records Department [address] [place] [address] Discharge Summary 12/21/24 1139 MR#: [id number] Acct: [id number] Name: CARLOS ALBERTO HOROWITZ Jr. Rep #:[id number] : 1970 54 From: Farzad mejia MD PCP: Dr. Jhonatan Garcia DO Status:ADM BRENNA Location: [place] [address] Providers Date of Admission: 12/20/24 Primary Care [...] Course: Per HPI: CARLOS ALBERTO HOROWITZ, is k24-igxm-yfp male history of hypertension, gout, cardiomyopathy, GERD, diabetes, depression and anxiety, KOFFI who presented [facility] ED 12/20/2024 for right hand pain, [...] 76.3 H, Lymph % (Auto) 10.6 L, [place] % (Auto) 10.6 H, Eos % (Auto) [...] (Auto) 68.8, Lymph % (Auto) 15.1 L, [place] % (Auto) 13.4 H, Eos % (Auto) [...] swelling. No significant bony abnormality Reading Location: [facility] D/C Instructions DC O2, CPAP, BIPAP Needs [...] in before D/C Order can be placed): [facility] Facility Charges/Coding Visit Charges Inpatient E&M: 53550 Disch Hosp >30min 12/21/24 1138 Cosigner Signature (if applicable): CC: Dr. Farzad Camilo MD; Dr. Jhonatan Garcia DO~ Signed [facility]07-26-20[facility] Progress note Author Austin Estrada [facility] Note Date/Time December 21, 2024 8:23 am [facility] Medical Records Department [address] [place] [address] Progress Note - Surgery 12/21/24806 MR#: [id number] Acct: [id number] Name: WARRENCARLOS ALBERTO Briones Lucian Brito. Rep #:[id number] : 1970 54 From: Austin Estrada MD PCP: Dr. Jhonatan Garcia DO Status:ADM BRENNA Location: MS3 DJ989-3 Subjective Subjective Much improvement in right hand [...] 76.3 H, Lymph % (Auto) 10.6 L, [place] % (Auto) 10.6 H, Eos % (Auto) [...] (Auto) 68.8, Lymph % (Auto) 15.1 L, [place] % (Auto) 13.4 H, Eos % (Auto) [...] swelling. No significant bony abnormality Reading Location: [id number] Physical Exam Narrative Right upper Extremity Inspection: [...] the plan Charges/Coding Visit Charges Inpatient E&M: 36253 Subs Hosp L1 12/21/24 0823 <Electronically signed by Austin Estrada MD> Cosigner Signature (if applicable): CC: ~ Signed [facility] Work Phone: 1(863) 815-907807-26-2025 Progress note [facility] Medical Records Department [address] [place] [address] Progress Note - Surgery 12/21/24 08 MR#: [id number] Acct: [id number] Name: CARLOS ALBERTO HOROWITZ Jr. Rep #:[id number] : 1970 54 From: Austin Estrada MD PCP: Dr. Jhonatan Garcia, DO Status:ADM BRENNA Location: MS3 VX953-6 Subjective Subjective Much improvement in right hand [...] 76.3 H, Lymph % (Auto) 10.6 L, [address] % (Auto) 10.6 H, Eos % (Auto) [...] (Auto) 68.8, Lymph % (Auto) 15.1 L, [address] % (Auto) 13.4 H, Eos % (Auto) [...] swelling. No significant bony abnormality Reading Location: [facility] Physical Exam Narrative Right upper [...] the plan Charges/Coding Visit Charges Inpatient E&M: 82934 Subs Hosp L1 12/21/24 0800 Cosigner Signature (if applicable): CC: ~ Signed [facility]07-25-2025 History and physical note Author Yaz Dee [facility] Note Date/Time December 20, 2024 6:31 pm [facility] Medical Records Department [address] [place] [address] H&P Exam - Hospitalist 12/20/24 1752 MR#: [id number] Acct: [id number] Name: CARLOS ALBERTO HOROWITZ Jr. Rep #:[id number] : 1970 54 From: Yaz Dee MD PCP: Dr. Jhonatan Garcia, DO Status:ADM BRENNA Location: DC3 CR111-1 HPI - General General Date of Admission: 12/20/24 Date of Service: 12/20/24 Chief Complaint: Right hand pain and swelling HPI Narrative CARLOS ALBERTO HOROWITZ, is b66-ksri-ufb male history of hypertension, gout, cardiomyopathy, GERD, diabetes, depression and anxiety, KOFFI who presented [facility] ED 12/20/2024 for right hand pain, [...] no other new or acute complaints [facility] Medical History Ankle fracture, right Insomnia [...] Type Severity Reaction Status Date / Time Qttxvwr-PDP-LoT Reductase Allergy Mild Hives Verified 12/20/24 13:07 Inhibitor Social History housing: skilled nursing Smoking Status: Former smoker ROS ROS Narrative [...] 76.3 H, Lymph % (Auto) 10.6 L, [place] % (Auto) 10.6 H, Eos % (Auto) [...] swelling. No significant bony abnormality Reading Location: [facility] Assessment & Plan Assessment/Plan (1) [...] Dee MD Charges/Coding Visit Charges Inpatient E&M: 99434 Init Hosp L2 12/20/24 1831 <Electronically signed by Yaz Dee MD> Cosigner Signature (if applicable): CC: Dr. Yaz Dee MD; Dr. Jhonatan Garcia DO~ Signed [facility] Work Phone: 1([phone]) 220-210107-25-2025 History and physical note Author Yaz Dee [facility] Note Date/Time December 20, 2024 6:31 pm [facility] Medical Records Department [address] [place] [address] H&P Exam - Hospitalist 12/20/24 1752 MR#: [id number] Acct: [id number] Name: CARLOS ALBERTO HOROWITZ Jr. Rep #:[id number] : 1970 54 From: Yaz Dee MD PCP: Dr. Jhonatan Garcia, DO Status:ADM BRENNA Location: DC3 GK203-9 HPI - General General Date of Admission: 12/20/24 Date of Service: 12/20/24 Chief Complaint: Right hand pain and swelling HPI Narrative CARLOS ALBERTO HOROWITZ, is v83-cqew-xyc male history of hypertension, gout, cardiomyopathy, GERD, diabetes, depression and anxiety, KOFFI who presented [facility] ED 12/20/2024 for right hand pain, [...] no other new or acute complaints [facility] Medical History Ankle fracture, right Insomnia [...] Type Severity Reaction Status Date / Time Pjbgqpq-SVD-PxO Reductase Allergy Mild Hives Verified 12/20/24 13:07 Inhibitor Social History housing: skilled nursing Smoking Status: Former smoker ROS ROS Narrative [...] 76.3 H, Lymph % (Auto) 10.6 L, [place] % (Auto) 10.6 H, Eos % (Auto) [...] swelling. No significant bony abnormality Reading Location: [facility] Assessment & Plan Assessment/Plan (1) [...] Dee MD Charges/Coding Visit Charges Inpatient E&M: 91859 Init Hosp L2 12/20/24 1831 <Electronically signed by Yaz Dee MD> Cosigner Signature (if applicable): CC: Dr. Yaz Dee MD; Dr. Jhonatan Garcia DO~ Signed [facility] Work Phone: 1(864) 666-802107-25-2025 Evaluation note* Diagnosis Onset Date Resolution Status Admit Date IV infiltrate acute December 20, 2024 5:52pm Localized swelling on right hand acu te December 20, 2024 5:52pm [facility] Work Phone: 1(492) 632-908607-25-2025 Evaluation note* Diagnosis Onset Date Resolution Status Admit Date Extravasation of intravenous contrast medium acute December 20, 2024 5:52pm IV infiltrate acute December 20, 2024 5:52pm Localized swelling on right hand acu te December 20, 2024 5:52pm Swelling of right hand acute Ju ly 2024 5:52pm [facility] Work Phone: 1(917) 513-225607-25-2025 Evaluation note* Diagnosis Onset Date Resolution Status [...] Postoperative infection acute A ugust 2024 3:27am [facility] Work Phone: 1(293) 743-800407-25-2025 Evaluation note* Diagnosis Onset Date Resolution Status [...] 28, 2024 3:48am Postoperative infection acute A ugust 2024 3:48am [facility] Work Phone: 1(276) 110-861707-25-2025 Discharge summary Author Robles Botello [facility] Note Date/Time December 20, 2024 4:57 pm [facility] Medical Records Department [address] [place] [address] Emergency Department Summary 12/20/24 MR#: [id number] Acct: [id number] Name: CARLOS ALBERTO HOROWITZ Jr. Rep #:[id number] : 1970 54 From: Robles Botello MD [...] the swelling but is also very itchy. [facility] Medical History Ankle fracture, right Insomnia [...] Type Severity Reaction Status Date / Time Knqggok-EQE-YyF Reductase Allergy Mild Hives Verified 12/20/24 13:07 Inhibitor Social History housing: skilled nursing Smoking Status: Former smoker ROS ROS ED [...] 76.3 H Lymph % (Auto) 10.[address] [place] % (Auto) 10.6 H Eos % (Auto) [...] swelling. No significant bony abnormality Reading Location: [facility] Management Discussion w/another healthcare provider: Hospitalist and Freelance Court Reporter Discharge Plan Dx/Rx/DC Orders Clinical Impression: Swelling of right hand, Extravasation of intravenous contrast medium Disposition Disposition: Acute Care Hospital [facility] What to do if you have Problems For any increased pain, shortness of breath, bleeding, nausea or vomiting, chestpain, or any unexpected problems, contact your Primary Care Provider. Call [facility] ([phone]) or report to the closest Emergency Room. Call 911 if necessary. 12/20/241656 <Electronically signed by Robles Botello MD> Cosigner Signature (if applicable): CC: Dr. Jhonatan Garcia, DO ~ Signed [facility] Work Phone: 1(900) 251-757107-25-2025 History and physical note [facility] Medical Records Department [address] [place] [address] H&P Exam - Hospitalist 12/20/24 1752 MR#: [id number] Acct: [id number] Name: CARLOS ALBERTO HOORWITZ Jr. Rep #:[id number] : 1970 54 From: Yaz Dee MD PCP: Dr. Jhonatan Garcia, DO Status:ADM BRENNA Location: DC3 RI055-5 HPI - General General Date of Admission: 12/20/24 Date of Service: 12/20/24 Chief Complaint: Right hand pain and swelling HPI Narrative CARLOS ALBERTO HOROWITZ, is s16-jvqr-dra male history of hypertension, gout, cardiomyopathy, GERD, diabetes, depression and anxiety, KOFFI who presented [facility] ED 12/20/2024 for right hand pain, [...] but no other new oracute complaints [facility] Medical History Ankle fracture, right Insomnia [...] Type Severity Reaction Status Date / Time [place]-WQX-DqX Reductase Allergy Mild Hives Verified 12/20/24 13:07 Inhibitor Social History housing: skilled nursing Smoking Status: Former smoker ROS ROS Narrative [...] 76.3 H, Lymph % (Auto) 10.6 L, [place] % (Auto) 10.6 H, Eos % (Auto) [...] swelling. No significant bony abnormality Reading Location: [facility] Assessment & Plan Assessment/Plan (1) [...] Dee MD Charges/Coding Visit Charges Inpatient E&M: 41790 Init Hosp L2 12/20/24 1831 Cosigner Signature (if applicable): CC: Dr. Yaz Dee MD; Dr. Jhonatan Garcia DO~ Signed [facility]07-25-2025 Consult note Author Austin Estrada [facility] Note Date/Time December 20, 2024 4:04 pm [facility] Medical Records Department [address] [place] [address] Consultation - Surgical 12/20/24 1439 MR#: [id number] Acct: [id number] Name: CARLOS ALBERTO HOROWITZ Jr. Rep #:[id number] : 1970 54 From: Austin Estrada MD [...] CT scan. Patient has been in a skilled nursing recently secondary to immobility because of aright lower extremity external fixator. He presented to the emergency department yesterday for chest pain and was getting a CT scan to rule out a DVT PE. He was discharged home to the skilled nursing last night and return today for the [...] atrial fibrillation and is on Coumadin. [facility] Medical History Ankle fracture, right Insomnia [...] Type Severity Reaction Status Date / Time Qkhljav-ODP-QgF Reductase Allergy Mild Hives Verified 12/20/24 13:07 Inhibitor Social History housing: skilled nursing Smoking Status: Former smoker Physical Exam Narrative [...] Charges/Coding Visit Charges Office Visits / Consults: 64648 OV L3 New 30min 12/20/24 1604 <Electronically signed by Austin Estrada MD> Cosigner Signature (if applicable): CC: Dr. Jhonatan Garcia DO~ Signed [facility] Work Phone: 1(349) 495-324707-25-2025 Discharge summary [facility] Medical Records Department [address] [place] [address] Emergency Department Summary 12/20/24 MR#: [id number] Acct: [id number] Name: CARLOS ALBERTO HOROWITZ Jr. Rep #:[id number] : 1970 54 From: Robles Botello MD PCP: Dr. Jhonatan Gracia DO Status:REG ER Location: ED HPI History [...] the swelling but is also very itchy. [facility] Medical History Ankle fracture, right Insomnia [...] Type Severity Reaction Status Date / Time Favppqy-NZO-TuI Reductase Allergy Mild Hives Verified 12/20/24 13:07 Inhibitor Social History housing: skilled nursing Smoking Status: Former smoker ROS ROS ED [...] 76.3 H Lymph % (Auto) 10.[address] [place] % (Auto) 10.6 H Eos % (Auto) [...] swelling. No significant bony abnormality Reading Location: [facility] Management Discussion w/another healthcare provider: Hospitalist and Freelance Court Reporter Discharge Plan Dx/Rx/DC Orders Clinical Impression: Swelling of right hand, Extravasation of intravenous contrast medium Disposition Disposition: [facility] What to do if you have Problems For any increased pain, shortness of breath, bleeding, nausea or vomiting, chestpain, or any unexpected problems, contact your Primary Care Provider. Call [facility] ([phone]) or report tothe closest Emergency Room. Call 911 if necessary. 12/20/24 1657 Cosigner Signature (if applicable): CC: Dr. Jhonatan Garcia DO ~ Signed [facility]07-25-2025 Consult note [facility] Medical Records Department [address] [place] [address] Consultation - Surgical 12/20/24 1439 MR#: [id number] Acct: [id number] Name: CARLOS ALBERTO HOROWITZ Jr. Rep #:[id number] : 1970 54 From: Austin Estrada MD [...] CT scan. Patient has been in a skilled nursing recently secondary to immobility because of arit lower extremity external fixator. He presented to the emergency department yesterday for chest pain and was getting a CT scan to rule out a DVT PE. He was discharged home to the skilled nursing last night and return today for the [...] atrial fibrillation and is on Coumadin. [facility] Medical History Ankle fracture, right Insomnia [...] Type Severity Reaction Status Date / Time Myyffxm-JLS-HfV Reductase Allergy Mild Hives Verified 12/20/24 13:07 Inhibitor Social History housing: skilled nursing Smoking Status: Former smoker Physical Exam Narrative [...] Charges/Coding Visit Charges Office Visits / Consults: 48799 OV L3 New 30min 12/20/24 1604 Cosigner Signature (if applicable): CC: Dr. Jhonatan Garcia DO~ Signed [facility]07-25-2025 Radiology Diagnostic study note [facility] Imaging Services [address] [place], [place] [id number] Hand Min 3 Views MR#: [id number] Acct: [id number] Name: CARLOS ALBERTO HOROWITZ Jr. Rep #: [id number] : 1970 M 54 From: Nevaeh Lundberg MD PCP: Dr. Jhonatan Garcia DO Status: REG ER Study:Hand Min 3 Views Date of Exam: Exam# [id number] Ordering Dr: Refugio Botello MD PROCEDURE: HAND [...] swelling. No significant bony abnormality Reading Location: [facility] CC: Dr. Robles Botello MD; Dr. Jhonatan Garcia DO ~ Physician Non Invasive Cardiologist: Signed [facility]07-25-2025 Radiology Diagnostic study note [facility] Imaging Services [address] [place], [place] [address] CTA Chest W/WO Contrast MR#: [id number] Acct: [id number] Name: CARLOS ALBERTO HOROWITZ Jr. Rep #: [id number] : 1970 M 54 From: Whitley Presley MD PCP: Dr. Jhonatan Garcia DO Status: REG ER Study:CTA Chest W/WO Contrast Date of Exam: 12/20/24 Exam# [id number] Ordering Dr: Nguyễn Al DO PROCEDURE: CTA [...] No embolism, dissection, or pneumonia. Reading Location: [facility] CC: Dr. Jhonatan Garcia DO; Dr. Nguyễn Al DO ~ Physician Non Invasive Cardiologist: Signed [facility]07-24-2025 Radiology Diagnostic study note [facility] Imaging Services [address] [place], [place] [id number] Chest 1 View (Portable) MR#: [id number] Acct: [id number] Name: CARLOS ALBERTO HOROWITZ Rep #: [id number] : 1970 M 54 From: Britney Avalos MD PCP: STACEY Pena Status: PRE E R Study:Chest 1 View (Portable) Date of Exam: 12/19/24 Exam# [id number] Ordering Dr: Nguyễn Al DO PROCEDURE: CHEST [...] atelectasis, or edema also possible. Reading Location: [id number] CC: STACEY Correa; Dr. Nguyễn Al, DO ~ Physician Non Invasive Cardiologist: Signed [facility]07-20-2025 Hospital Discharge instructionsAdditional Instructions Plastic surgery discharge instructions Continue elevation of the right upper extremity especially at night and when lying in bed for the next several days for the swelling to decrease Recommend bacitracin or Neosporin and Band-Aids for any skin excoriations on the dorsum of the right hand secondary to the blistering. [facility] Work Phone: 1(831) 901-915707-18-2025 Hospital Discharge instructions Patient Education 12/13/2024 10:21:44 [...] breathing. Follow these instructions at home: Take oldk-ddz-abtysse and prescription medicines only as told by [...] 05/20/2014 Document Revised: 04/27/2018 Document Reviewed: 11/30/2016 [employer] Patient Education 2020 [employer]. Follow Up Care 12/10/2024 23:38:17 With:GIRMA CORREA APRN-[facility] Address: [address] [facility] [place] [address] [phone] When: Unknown Comments:Please call to schedule with your PCP when you discharge from [facility]. With:NANI VIVEROS DO, Orthopedic Address: [address] [facility], [place] [address] [phone] When:2-4 days Comments:Please call to schedule to have the external fixator removed. [facility] 07-18-2025 Note Discharge Instructions Thank you for allowing [facility] to assist you with your healthcare needs. The following is importantdischarge information regarding your hospital visit. Your Care Team [facility] Your Diagnosis Acute respiratory failure with hypoxia Bacteremia Chest pain CHF with cardiomyopathy COPD exacerbation HTN (hypertension) Morbid obesity with BMI of 40.0-44.9, adult Paroxysmal atrial fibrillation Sheltered homelessness Shortness of breath Type 2 diabetes mellitus with hyperlipidemia What to do next Follow Up Appointments Follow Up with GIRMA CORREA Where:[address] [facility] [place] [address]- [phone] Additional Information: Please call to schedule with your PCP when you discharge from [facility]. Follow Up with NANI VIVEROS DO, Orthopedic When:Within 2-4 days Where:[address] [facility], [place] [address]- [phone] Additional Information: Please call to schedule to [...] Ordered -- 12/13/24 8:55:00 EDT, NARESH MORENO Transfer of Care Oxygen Therapy - Ordered [...] breathing. Follow these instructions at home: Take rtoh-uqu-orfvrvx and prescription medicines only as told by [...] 05/20/2014 Document Revised: 04/27/2018 Document Reviewed: 11/30/2016 [employer] Social Patient Education 2020 [employer] Additional Information VACCINATE! IT SAVES LIVES! Members of the community who have not yet received the COVID-19 vaccine and would like to receive it can visit one of [facility] vaccine clinics. There are many vaccine clinic locations within the [facility]. For locations and available times, please visit [email or web address].[place].gov/. It is important to note that some COVID mobile vaccine clinics are held outdoors and may be canceled in rainy or stormy conditions. To learn more about pediatric vaccinations (ages 5-11), we invite you to visit the [facility] webpage. https://www.[email or web address].org/pages/9080-Tkisi-Usoicssjzwg-Dmnhjtatqy-Gaimh-Kwe stions.htmlTo learn more about the COVID-19 vaccine, we invite you to visit the CDC website for a list of frequently asked questions.https://www.cdc.gov/coronavirus/2019-ncov/vaccines/faq.html [employer] Patient Portal Access Instructions: Stay connected with your healthcare team and access your personal medical information anytime with the [employer] Patient Portal. Please follow the directions below to create your [employer] account: 1.Access the email account you provided upon registration to the hospital/physician office.2.Look for an invitation email from [facility].3.Open the email and access the invitation link: AcceptInvitation to [employer].4.Fill in the required orr to create your account. To access your account, visit [employer]. Click the blue button labeled "Access Patient Portal" and then log in with the username and password that you created in the steps above. You will be able to view your test results, lab results, a summary of your visits, upcoming appointments and more. There is also a convenient messaging option where you can send secure messages to your p [employer]. In addition, you will have the ability to download any documents or summaries to your computer and/or send the information securely to a physician. Remember that your healthcare information is confidential, so carefully consider who you will allowto register on the [employer] Patient Portal for access to your information. You can also access the [employer] Patient Portal on the hovelstaywhere frida. Simply click on "Patient Portal" and then log into your account. If you would like to receive a full copy of your medical records, please contact the [facility] Medical Records Department by calling [phone], Monday through Monday between 8 a.m. and [...] Call your local pharmacy or go to http://[employer].Petpace/[email or web address] to find one close to you.3.Make use of household items: Use cat litter or old coffee grounds to dispose medications if other options arenot available. Mix your drugs with these household products, seal them in an airtight container andthrow it into the garbage. Call [facility]: [phone] to be sure your drugs can be [...] that I should contact my d octor. Patient/Telecommunications Manager Signature: Date/Time: Relationship to Patient: Witness Name/Signature: Date/Time: [facility]07-18-2025 Pastoral care Progress note Pastoral Care Note Entered On: 12/13/2024 9:35 EDT Performed On: 12/13/2024 9:33 EDT by Carlos Alberto Nesbitt Pastoral Care Type of Pastoral Visit : Follow up visit Spiritual Care Visit Initiated by : Dimensional Inspector Spiritual Care Reason for Visit : [...] Carlos Alberto Nesbitt on 12/13/2024 09:33 AM [facility]07-17-2025 Note Date of Service 12/12/2024 Chief Complaint COPD exacerbation Subjective 54-year-old male with past medical history significant for COPD/asthma, KOFFI, tachycardia induced cardiomyopathy with recovered EF, atrial fibrillation anticoagulated with Xarelto, type 2 diabetes mellitus. Patient presented to [facility] emergency department 12/10/2024 with dyspnea and [...] Date: December 11, 2024 Verified By: MICK LGEGETT MD CLINICAL STATEMENT: IMPRESSION: Low lung volumes [...] for SNF. He has been accepted at [facility] [place] and pre- CERT has been started today. [...] by NARESH MORENO on 12/12/2024 12:39 PM [facility]07-17-2025 Pastoral care Progress note Pastoral Care Note Entered On: 12/12/2024 9:52 EDT Performed On: 12/12/2024 9:48 EDT by Cralos Alberto Nesbitt Pastoral Care Type of Pastoral Visit : Initial visit Spiritual Care Visit Initiated by : Dimensional Inspector Spiritual Care Reason for Visit : [...] wants to get back to a former christian; pt welcomes someone to talk with and for prayer to be given Pastoral Care Visit Length : 20 minute(s) Carlos Alberto Nesbitt - 12/12/2024 9:48 EDT Digitally Signed by Carlos Alberto Nesbitt on 12/12/2024 09:48 AM [facility]07-17-2025 Note* Exam Date Time Procedure Performing Provider Status 12/12/24 5:56 AM XR Chest 1 View MICK LEGGETT MD; Aut h (Verified) [id number] ORIGINAL EXAMINATION: ONE XRAY VIEW OF THE [...] 12/12/2024 6:38:29 AM Ordering Provider: VENITA BROTHERS [place] [id number] Note. MICRO - Microbiology PROCEDURE: Streptococcus Pneumoniae [...] Locations *1: This test was performed at: [facility], [address] [place] [address], [id number]- , [facility]07-16-2025 Note. MICRO - Microbiology PROCEDURE: Legionella [...] Locations *1: This test was performed at: [facility], [address] [place] [address], [address] [facility]07-16-2025 Evaluation + Plan noteExtracted from: Title:History and Physical Author:ERLIN ALANIZ APRN-BUILDING PRINCIPAL Date:12/11/24 1. COPD exacerbation Acute, new onset, [...] evaluated by cardiology earlier this morning at [facility]. Repeat troponin in the am. 5. [...] no longer feels safe in that environment. 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 History of Present Illness Patient is a 54-year-old male, who follows with Girma Correa CNP with a past medical history significant for COPD, asthma, CHF with cardiomyopathy, hypertension, atrial fibrillation, type 2 diabetes, and KOFFI, presented to [facility] emergency department with the chief complaint [...] that was supposed to be removed at [facility] today. Patient denies any fever, chills, [...] home and would like to go to [facility]. He was just admitted to [facility] with atrial fibrillation RVR and bacteremia. [...] evaluated by cardiology earlier this morning at [facility]. Repeat troponin in the am. 5. [...] no longer feels safe in that environment. 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 DVT prophylaxis [...] ANGEL GARCES DO on 12/11/2024 03:06 PM [facility]07-16-2025 Note* Exam Date Time Procedure Performing Provider Status 12/11/24 2:[address] Angiography Chest w/ Contrast MICK WAGNER MD; Auth (Verified) [id number] ORIGINAL EXAMINATION: CTA OF THE CHEST 12/11/2024 [...] Date: 12/11/2024 3:29:36 AM Ordering Provider: DELORES [address]16-2025 Note* Exam Date Time Procedure Performing Provider Status 12/11/24 12:31 AM XR Chest 1 View MICK LEGGETT MD; Au th (Verified) [id number] ORIGINAL EXAMINATION: ONE XRAY VIEW OF THE [...] Date: 12/11/2024 1:19:48 AM Ordering Provider: [place] [address]-15-2025 Note* Exam Date Time Procedure Performing Provider Status 12/10/24 11:55 PM EKG [ED AOH] - CV DELORES MURO DO; Auth (Verified) ECG Final Report Sinus rhythm Left axis deviation Abnormal R-wave progression, late transition Compared to ECG at 11/24/2024 15:28:54 Electronic Signature: DELORES MURO DO 12/11/2024 02:07:48 [facility]07-09-2025 Hospital Discharge instructions Patient Education 12/04/2024 17:09:41 [...] gets wet, dry it with a hairspring setter on a cool setting. You may use cmje-amk-qesrrsa pain medicine to control pain, unless another [...] cast or splint develops cracks or breaks 8281-3194 [employer]. [address] [place] [address]. All rights reserved. This information is not intended as a substitute for professional medical care. Always follow yourhealthcare professional's instructions. Follow Up Care 12/04/2024 16:40:24 With:GIRMA CORREA Address: [address] [place], [place] [id number] [phone] When:2-4 days [facility] 07-09-2025 Note Discharge Instructions Thank you for allowing [facility] to assist you with your healthcare needs. The following is importantdischarge information regarding your hospital visit. Diagnosis from Today's Visit Visit for wound check What to Do Next Instructions from Your Care Team No qualifying data available. Post Acute Orders No qualifying data available. You Need to Schedule the Following Appointments Follow Up with GIRMA CORREA When:Within 2-4 days Where:[place] [address]- [phone] Allergies Statins myalgia Medications Please ask your [...] gets wet, dry it with a hairspring setter on a cool setting. You may use pisz-gaq-kddphui pain medicine to control pain, unless another [...] cast or splint develops cracks or breaks 4396-9009 [employer]. [address] [place] [address]. All rights reserved. This information is not intended as a substitute for professional medical care. Always follow yourhealthcare professional's instructions. Additional Information VACCINATE! IT SAVES LIVES! Members of the community who have not yet received the COVID-19 vaccine and would like to receive it can visit one of [facility] vaccine clinics. There are many vaccine clinic locations within the [facility]. For locations and available times, please visit www.gettheshot.coronavirus.[place].gov/. It is important to note that some COVID mobile vaccine clinics are held outdoors and may be canceled in rainy or stormy conditions. To learn more about pediatric vaccinations (ages 5-11), we invite you to visit the [facility] webpage. https://www.[facility].org/pages/9957-Mbqhz-Hyvrmkqocrz-Elbgquczmw-Fqywz-Bub stions.htmlTo learn more about the COVID-19 vaccine, we invite you to visit the CDC website for a list of frequently asked questions. https://www.cdc.gov/coronavirus/2019-ncov/vaccines/faq.html [facility] Patient Portal Access Instructions: Stay connected with your healthcare team and access your personal medical information anytime with the [employer] Patient Portal. If you would like a full copy of your medical records please contact the [facility] Medical Records Department Monday through Monday between 8a.m. and 4:30p.m. Please follow the directions below to access the portal: 1.Access the email account you provided upon registration to the [facility].2.Look for an invitation email from [facility].3.Open the email and access the invitation link: Accept [facility] to [facility]4.Fill in the required orr to create your account. Sign into [email or web address] with your username and password that you [...] you will allow to register on the [facility] Patient Portal for access to your information. You can also access the [employer] Patient Portal on the [employer] frida. Simply click on "Health Records" under "HealthSkigit" and then click on the Larry logo. [...] Call your local pharmacy or go to http://[employer].Petpace/[email or web address] to find one close to you.3.Make use of household items: Use cat litter or old coffee grounds to dispose medications if other options arenot available. Mix your drugs with these household products, seal them in an airtight container andthrow it into the garbage. Call [facility]: [phone] to be sure your drugs can be [...] that I should contact my d octor. Patient/Telecommunications Manager Signature: Date/Time: Relationship to Patient: Witness Name/Signature: Date/Time: [facility]07-06-2025 Note. MICRO - Microbiology PROCEDURE: Blood Culture [...] Locations *1: This test was performed at: [address], [address] [place] [address] [id number] Note. MICRO - Microbiology PROCEDURE: Blood Culture [...] Locations *1: This test was performed at: [address], [facility] , [facility] [id number] Note. MICRO - Microbiology PROCEDURE: Blood Culture [...] Locations *1: This test was performed at: [facility], [address] [place] [address], [address]- , [facility]07-03-2025 Cardiology Progress note Date of Service 11/28/2024 [...] MIKEL MCDANIEL DO on 11/28/2024 11:46 AM [facility]Xbxzaagc51-72-1107 Hospital Discharge instructions Patient Education 11/28/2024 15:26:42 Atrial Fibrillation, Ikwd-xr-Frgf Atrial Fibrillation Atrial fibrillation is a type [...] Follow these instructions at home: Medicines Take lwrf-jbs-wvjazsd and prescription medicines only as told by [...] Document Reviewed: 07/06/2018 Elsevier Patient Education 2020 [employer] Follow Up Care 11/24/2024 07:01:00 With:NANI VIVEROS DO, Orthopedic Address: [address] [facility], [place] [phone] When:12/06/2024 09:00:00 Comments:Please Dr. Viveros's office to schedule appointment for follow up to discuss and schedule possible ex-fix removal. With:GIRMA CORREA Address: [address] [place], [place] [address]- [phone] When:1-2 days Comments:Please call the office to schedule a hospital follow up appointment. [facility] 07-03-2025 Note Discharge Instructions Thank you for allowing [facility] to assist you with your healthcare needs. [...] CORREA When:Within 1-2 days Where:[address] [place], [place] [address]- [phone] Additional Information: Please call the office to schedule a hospital follow up appointment. Follow Up with NANI VIVEROS DO, Orthopedic When:12/06/2024 09:00 AM EDT Where:[address] [facility], [place] [address]- [phone] Additional Information: Please Dr. Viveros's office to [...] pins. wrap with guaze over xeroform guaze, 07/03/25 14:08:00 EDT The Following Treatments Have Been [...] a day Duration: 14 Days Pickup at [facility]/pharmacy #[id number] Changed potassium chloride (Potassium Chloride (Eqv-K-Tab) 20 [...] by mouth Daily at bedtime Pharmacy Information [facility]/pharmacy #[id number]: [address] [place], [place] [id number] [phone] Please take this list to your next [...] Follow these instructions at home: Medicines Take ncqy-gln-aijqeqa and prescription medicines only as told by [...] 02/21/2009 Document Revised: 07/19/2018 Document Reviewed: 07/06/2018 [employer] Patient Education 2020 [employer]. Additional Information VACCINATE! IT SAVES LIVES! Members of the community who have not yet received the COVID-19 vaccine and would like to receive it can visit one of [facility] vaccine clinics. There are many vaccine clinic locations within the [facility]. For locations and available times, please visit https://[email or web address].[place].gov/. It is important to note that some COVID mobile vaccine clinics are held outdoors and may be canceled in rainy or stormy conditions. To learn more about pediatric vaccinations (ages 5-11), we invite you to visit the [facility] webpage. https://www.[facility].org/pages/2450-Cdrqb-Vdocaqkcyqs-Xxvachgeyr-Fhady-Fst stions.htmlTo learn more about the COVID-19 vaccine, we invite you to visit the CDC website for a list of frequently asked questions.https://www.cdc.gov/coronavirus/2019-ncov/vaccines/faq.html [facility] Patient Portal Access Instructions: Stay connected with your healthcare team and access your personal medical information anytime with the [employer] Patient Portal. Please follow the directions below to create your [facility] account: 1.Access the email account you provided upon registration to the hospital/physician office.2.Look for an invitation email from [facility].3.Open the email and access the invitation link: AcceptInvitation to [facility].4.Fill in the required orr to create your account. To access your account, visit [email or web address]. Click the blue button labeled "Access Patient [...] who you will allowto register on the [facility] Patient Portal for access to your information. You can also access the [facility] on the [facility] [employer] frida. Simply click on "Patient Portal" and then log into your account. If you would like to receive a full copy of your medical records, please contact the [facility] Medical Records Department by calling [phone], Monday through Monday between 8 a.m. and [...] Call your local pharmacy or go to http://bit.ly/3O5Wg2z to find one close to you.3.Make use of household items: Use cat litter or old coffee grounds to dispose medications if other options arenot available. Mix your drugs with these household products, seal them in an airtight container andthrow it into the garbage. Call [facility]: [phone] to be sure your drugs can be [...] COPY. Signatures Patient Education Materials Atrial Fibrillation, Cudj-lq-Krrd Medication Leaflets My discharge plan and instructions have been reviewed and explained to me and I,CARLOS ALBERTO HOROWITZ JR understand my current condition and have read and understand these discharge instructions. I have received a written copy of the plan/instructions. If I have questions, I am aware that I should contact my d octor. Patient/Telecommunications Manager Signature: Date/Time: Relationship to Patient: Witness Name/Signature: Date/Time: [place] [address]-03-2025 Discharge summary Date of Service 11/28/2024 Discharge [...] external fixator in place. Patient presented to [facility] as a transfer from [facility] on 11/24/2024 with complaints of palpitations [...] to Physician - Ordered -- 11/24/24 13:02:00 EDTLUIS JOHN MD, Routine, A. Fib RVR Consult to [...] When:Within 1-2 days Where:[address] [facility] [place], [place] [address]- [phone] Additional Information: Please call the office to [...] MAXIME COLLINS DO on 11/28/2024 01:25 PM [facility] HospitalYzpxnupn68-90-0909 Infectious disease Progress note Date of Service [...] with orthopedics presents to the hospital from [facility] on 11/24/2024 as a transfer for [...] by ORI TOMLIN on 11/28/2024 12:50 PM [facility] HospitalAqpmrerk91-64-1053 Cardiology Progress note Date of Service 11/28/2024 [...] MIKEL MCDANIEL DO on 11/28/2024 11:46 AM [facility] HospitalEkvaowdn10-98-1812 Note* Exam Date Time Procedure Performing Provider Status 11/28/24 11:04 AM Transesophageal Echo cardiogram - CV FREDDY HARTLEY MD; Auth (Verified) [facility] HospitalZbeolmru63-30-8984 Anesthesiology Consult note Patient: CARLOS ALBERTO HOROWITZ [...] list: Medical Asthma exacerbation / SNOMED CT 4443564294 / Confirmed COPD exacerbation / SNOMED CT 8928526064 / Confirmed Atopic dermatitis / SNOMED CT 29876389 / Confirmed Atypical chest pain / SNOMED CT 942093220 / Confirmed Morbid obesity with BMI of 40.0-44.9, adult / SNOMED CT 4479046268 / Confirmed Bronchitis / SNOMED CT 69724951 / Confirmed Cardiomyopathy / SNOMED CT 850640980 / Confirmed CHF with cardiomyopathy / SNOMED CT 71395501 / Confirmed Cough / SNOMED CT 18568415 / Confirmed Dental abscess / SNOMED CT 792610028 / Confirmed Depression / SNOMED CT 36918426 / Confirmed Dyspnea / SNOMED CT 070935808 / Confirmed Generalized anxiety disorder / SNOMED CT 08833346 / Confirmed Hypertension associated with type 2 diabetes mellitus / SNOMED CT 4426415247 / Confirmed Insomnia / SNOMED CT 340904010 / Confirmed LVH (left ventricular hypertrophy) / SNOMED CT 98437817 / Confirmed Moderate asthma / SNOMED CT 4138421051 / Confirmed Near syncope / SNOMED CT 6736946904 / Confirmed Chewing tobacco nicotine dependence / SNOMED CT 64214236 / Confirmed KOFFI (obstructive sleep apnea) / SNOMED CT 562922284 / Confirmed Right knee pain / SNOMED CT 8257627803 / Confirmed Paroxysmal atrial fibrillation / SNOMED CT 503615388 / Confirmed Screening for ischemic heart disease / SNOMED CT 754227685 / Confirmed Screening for colon cancer / SNOMED CT 461927483 / Confirmed Statin intolerance / SNOMED CT 0712417227 / Confirmed Tachyarrhythmia / SNOMED CT 75030705 / Confirmed Type 2 diabetes mellitus with hemoglobin A1c goal of less than 7.0% / SNOMED CT 328023425 / Confirmed Type 2 diabetes mellitus with hyperlipidemia / SNOMED CT 815089266 / Confirmed, Active Problems (32) Asthma exacerbation [...] Histories Past Medical History: Resolved Morbid obesity (265146536): Resolved. Diabetes mellitus (355743038): Resolved. Hypertension (3242933488): Resolved. BMI 45.0-49.9, adult (8207483151): Resolved. Anxiety (21474349): Resolved. Prediabetes (1381863234): Resolved. Obstructive sleep apnea (290792082): Resolved. Right flank pain (462678117): Resolved. Hyperlipidemia (67667823): Resolved. Mass of arm (520334247): Resolved. Family History: Cancer Father Heart disease Mother Grandparent Stroke Father Procedure history: Excision (490925257) on 03/25/2024 at 53 Years. Comments: 03/26/2024 7:50 EKTAT - Karol Melendez LPN excision of multilobulated lipomatous mass right forearm Echocardiogram ([id number]) on 01/31/2024 at 53 Years. Cardioversion (290150427) on 12/23/2022 at 52 Years. Echocardiogram (7619103225) on 11/11/2022 at 52 Years. Comments: 03/20/2023 [...] atrial pressure is 15 mm Hg Elbow (6725930988). Comments: 07/11/2022 8:26 CRISTINO Sinha, SHAHEEN warner [...] Oral36.6 DegC (NOV 28 06:51) Heart Rate Wbzzgs47 bpm (NOV 28 09:06) LRE172 mmHg (NOV 28 06:51) DBP63 mmHg (NOV [...] range of motion. Integumentary: Intact, Warm, Dry, [place]. Neurologic: Alert, Oriented. Review / Management Results [...] 26)9.1(NOV 25)9.2(NOV 24) . Assessment and Plan [place] Society of Anesthesiologists (ASA) physical status classification: [...] ROJELIO NORIEGA DO on 11/28/2024 09:55 AM [facility] HospitalUlswwrzi80-52-2500 Note. MICRO - Microbiology PROCEDURE: Blood Culture [...] Locations *1: This test was performed at: [facility], [address] [place] [address], [facility] , [facility]07-02-2025 Note Date of Service 11/27/2024 Chief Complaint Palpitations Subjective 54-year-old male with a past medical history of COPD, tobacco abuse, A-fib, type 2 diabetes, recentankle fracture with external fixator in place. Presented to [facility] as a transfer from [facility] on 11/24/2024 with complaints of palpitations, [...] by MELISSA ORTEGA on 11/27/2024 12:32 PM [facility] HospitalBqambzfj73-55-4168 Infectious disease Progress note Date of Service [...] with Spectrum presents to the hospital from [facility] on 11/24/2024 as a transfer for [...] by ORI TOMLIN on 11/27/2024 02:19 PM [facility] HospitalWuxyhtam26-55-3574 Note. MICRO - Microbiology PROCEDURE: Blood Culture (bacterial) [O1 *1] SOURCE: Blood BODY SITE: COLLECTED DATE/TIME: 11/24/2024 05:08 EDT RECEIVED DATE/TIME: 11/24/2024 12:36 EDT START DATE/TIME: 11/24/2024 12:37 EDT FREE TEXT SOURCE: FINAL REPORTS Final Report [] Verified Date/Time/Personnel: 11/27/2024 09:17 EDT Staphylococcus aureus Isolated from aerobe and anaerobe bottles. Refer to previous culture for susceptibility. [id number] PRELIMINARY REPORTS Preliminary Report [] Verified Date/Time/Personnel: [...] Locations *1: This test was performed at: [facility], [address] [place] [address], [address] , [facility]07-02-2025 Note. MICRO - Microbiology PROCEDURE: Blood [...] Locations *1: This test was performed at: [address], [facility] , [facility]07-01-2025 Orthopaedic surgery Consult note Date of Service 11/25/2024 Reason for Consultation Pin site care History of Present Illness Chucky is a 54-year-old male who is admitted to [facility] for A-fib with RVR. 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 Skin intact. - Motor: Hip flexion/extension, quadriceps, hamstrings, gastruc/soleus, EHL/FHL intact. - Foot warm and perfused. BCR - Sensation grossly intact L2-S2: obturator, femoral, LCN, DPN, SPN, sural, saphenous, M/BUSINESS SOLUTIONS ANALYST - Calf soft and non-tender Lab Results [...] SUZE MISHRA DO on 11/26/2024 07:11 AM [facility] HospitalFwwzlkqo29-09-2126 Cardiology Progress note Date of Service 11/26/2024 [...] Patient denies any dysphagia. No contraindications for NLEDA reported. Will discontinue surface echo that has been ordered. Proceed with NELDA with anesthesia (airway risk). Digitally Signed by CHANDRAKANT SUAREZ DO on 11/26/2024 03:36 PM Digitally Signed by CHANDRAKANT SUAREZ DO on 11/26/2024 03:37 PM [facility] HospitalHgnoyjqu84-26-8045 Cardiology Progress note Date of Service 11/26/2024 [...] CHANDRAKANT SUAREZ DO on 11/26/2024 03:37 PM [facility] HospitalTwmbyxzo30-98-5137 Note Date of Service 11/26/2024 Chief Complaint Weakness Subjective 54-year-old male with a past medical history of COPD, tobacco abuse, A-fib, type 2 diabetes, recentankle fracture with external fixator in place. Presented to [facility] as a transfer from [facility] on 11/24/2024 with complaints of palpitations, [...] by MELISSA ORTEGA on 11/26/2024 12:18 PM [facility] HospitalBrkgjvmu85-33-8963 Infectious disease Progress note Date of Service [...] repair tomorrow at outside facility presents from [facility] on 11/24/2024 is transferred for shortness [...] by ORI TOMLIN on 11/26/2024 02:31 PM [facility] HospitalZrlxywgm71-65-5739 Infectious disease Consult note Date of Service 11/25/2024 Reason for Consultation Staph aureus bacteremia Referring Physician Dr. Juarez History of Present Illness Patient is a 54-year-old male with past medical history of COPD, tobacco abuse, atrial fibrillation, type 2 diabetes, recent right ankle fracture with external fixator with scheduled operative repairtomorrow at outside facility presents from [facility] on 11/24/2024 as a transfer for [...] repair tomorrow at outside facility presents from [facility] on 11/24/2024 as a transfer for [...] by ORI TOMLIN on 11/25/2024 04:42 PM [facility] HospitalUmqzfmzg03-89-2032 Note* Exam Date Time Procedure Performing Provider Status 11/25/24 6:03 PM XR Ankle Minimum 3 Views Left KAILEY COLEY MD; Auth (Verified) [id number] ORIGINAL EXAMINATION: THREE XRAY VIEWS OF THE [...] 11/25/2024 7:46:46 PM Ordering Provider: SUZE MISHRA [facility] HospitalNkeyaclv40-17-1416 Note* Exam Date Time Procedure Performing Provider Status 11/25/24 6:03 PM XR Tibia/Fibula 2 Views Right KAILEY COLEY MD; Auth (Verified) [id number] ORIGINAL EXAMINATION: TWO XRAY VIEWS OF THE [...] 11/25/2024 7:42:39 PM Ordering Provider: ORI TOMLIN [facility] HospitalMjijxwnw17-12-3248 Note* Exam Date Time Procedure Performing Provider Status 11/25/24 6:01 PM XR Ankle Minimum 3 Views Right TRACE ROUSE MD; Auth (Verified) [id number] ORIGINAL EXAMINATION: THREE XRAY VIEWS OF THE [...] 11/25/2024 7:39:01 PM Ordering Provider: SUZE MISHRA [facility] HospitalWyveuvrk19-82-1244 Orthopaedic surgery Consult note Date of Service 11/25/2024 Reason for Consultation Pin site care History of Present Illness Chucky is a 54-year-old male who is admitted to [facility] for A-fib with RVR. 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 Skin intact. - Motor: Hip flexion/extension, quadriceps, hamstrings, gastruc/soleus, EHL/FHL intact. - Foot warm and perfused. BCR - Sensation grossly intact L2-S2: obturator, femoral, LCN, DPN, SPN, sural, saphenous, M/BUSINESS SOLUTIONS ANALYST - Calf soft and non-tender Lab Results [...] SUZE MISHRA DO on 11/26/2024 07:11 AM [facility] HospitalZfpfaybb26-49-7744 Cardiology Progress note Date of Service 11/25/2024 [...] CHANDRAKANT SUAREZ DO on 11/25/2024 02:06 PM [facility] HospitalBacvjicz46-19-1302 Note Date of Service 11/25/2024 Chief Complaint Right lower extremity pain Subjective 54-year-old male with a past medical history of COPD, tobacco abuse, A-fib, type 2 diabetes, recentankle fracture with external fixator in place. Presented to [facility] as a transfer from [facility] on 11/24/2024 with complaints of palpitations, [...] by MELISSA ORTEGA on 11/25/2024 01:00 PM [facility] HospitalMncxljpa68-84-8525 Infectious disease Consult note Date of Service 11/25/2024 Reason for Consultation Staph aureus bacteremia Referring Physician Dr. Juarez History of Present Illness Patient is a 54-year-old male with past medical history of COPD, tobacco abuse, atrial fibrillation, type 2 diabetes, recent right ankle fracture with external fixator with scheduled operative repairtomorrow at outside facility presents from [facility] on 11/24/2024 as a transfer for [...] repair tomorrow at outside facility presents from [facility] on 11/24/2024 as a transfer for [...] by ORI TOMLIN on 11/25/2024 04:42 PM [facility] HospitalVlykqejm11-36-0515 Cardiology Progress note Date of Service 11/25/2024 [...] CHANDRAKANT SUAREZ DO on 11/25/2024 02:06 PM [facility] HospitalFfupfuji33-12-3813 Note* Exam Date Time Procedure Performing Provider Status 11/24/24 3:28 PM EKG (ED) - CV JORDON ARCOS MD; Auth (Verified) ECG Final Report SINUS RHYTHM LAD, CONSIDER LEFT ANTERIOR FASCICULAR BLOCK LOW VOLTAGE, PRECORDIAL LEADS CONSIDER ANTERIOR INFARCT Electronic Signature: JORDON ARCOS MD 11/25/2024 09:46:09 [facility] HospitalZgxvdlrx66-54-9542 Cardiology Consult note Reason for Consultation Atrial [...] LANDON SMITH MD on 11/24/2024 03:05 PM [facility] HospitalPqtbazfi25-17-9381 Note* Exam Date Time Procedure Performing Provider Status 11/24/24 2:00 PM XR Chest 1 View MELISSA ONTIVEROS MD; Aut h (Verified) [id number] ORIGINAL EXAMINATION: ONE XRAY VIEW OF THE [...] 2:03:25 PM Ordering Provider: KARLENE BARCENAS [facility] HospitalAnehzbma55-98-3326 Evaluation + Plan noteExtracted from: Title:History and [...] Metabolic Panel 08/27/24 * N-Terminal proBNP 08/27/24 [facility] 06-29-2025 History and physical note Date of Service November 24, 2024 Chief Complaint Palpitations, shortness of breath History of Present Illness This is a 54-year-old male with a past medical history consistent with COPD, tobacco abuse, atrial fibrillation, T2DM, recent ankle fracture with scheduled operative repair tomorrow at an outside facility right presents from [facility] as a transfer for palpitations in [...] Patient was given Cardizem bolus in the [facility] ED, no further therapy given due to BP drop. On exam, patient states that his work of breathing is improved. Was placed on 2 L nasal cannula in setting of A-fib with RVR. Denies chest pain, palpitations at this time. Had report of visual disturbance, hallucinations. States this happened once while in [place]. Denies any other new or acute complaints. [...] KARLENE BARCENAS DO on 11/24/2024 01:02 PM [facility] HospitalXyeqdprm15-41-8051 Note* Exam Date Time Procedure Performing Provider Status 11/24/24 5:[address] Angiography Chest w/ Contrast DARNELL MOLINA MD; Auth (Verified) [id number] ORIGINAL EXAMINATION: CTA OF THE CHEST 11/24/2024 [...] 11/24/2024 6:01:11 AM Ordering Provider: CIRILO PATEL [facility]06-29-2025 Note* Exam Date Time Procedure Performing Provider Status 11/24/24 5:[address] Head or Brain w/o Contrast DARNELL MOLINA MD; Auth (Verified) [id number] ORIGINAL EXAMINATION: CT OF THE HEAD WITHOUT [...] By: Darnell Molina MD Electronically signed By Darenll Molina MD Dictated Date: 11/24/2024 5:54:25 AM Prelim Date: 11/24/2024 5:55:14 AM Sign Date: 11/24/2024 5:55:14 AM Ordering Provider: CIRILO PATEL Interpreted by: Darnell Molina MD Preliminary Report By: Darnell Molina MD Electronically signed By Darnell Molina MD Dictated Date: 11/24/2024 5:54:25 AM Prelim Date: 11/24/2024 5:55:14 AM Sign Date: 11/24/2024 5:55:14 AM Ordering Provider: CIRILO MEGHANBaljinder [facility]06-29-2025 Note* Exam Date Time Procedure Performing Provider Status 11/24/24 4:05 AM EKG [ED AOH] - CV CIRILO PATEL DO ; Auth (Verified) ECG Final Report Atrial fibrillation Markedly posterior QRS axis Anteroseptal infarct, old Minimal ST depression, lateral leads Baseline wander in lead(s) II,aVR Compared to ECG at 10/16/2024 22:24:26 ABNORMAL ECG Electronic Signature: CIRILO PATEL DO 11/24/2024 04:10:26 [facility]05-28-2025 Hospital Discharge instructions Patient Education 10/23/2024 17:07:48 [...] your health care provider approves. Standard walker 1.it application support analyst your walker. Do not slide your standard [...] 05/15/2006 Document Revised: 04/10/2019 Document Reviewed: 04/10/2019 [employer] Global Patient Education 2020 [employer] Inc. 10/23/2024 17:07:24 How to Care for [...] with a waterproof covering. General instructions Take ugge-snp-dydktli and prescription medicines only as told by [...] Document Reviewed: 07/15/2019 Elsevier Patient Education 2020 Elsevier Inc. Follow Up Care 10/16/2024 16:12:44 With:[facility], skilled, Address:Unknown When:1-2 days With:GIRMA CORREA Address: [address] [place] [address] [phone] Business (1) When:1-2 days With:NANI VIVEROS DO Orthopedic Address: [address] [place] [address] [phone] When:3-7 days Comments:Please call office [facility] to confirm/verify follow up appointment. [facility] 05-28-2025 Note Discharge Instructions Thank you for allowing [facility] to assist you with your healthcare needs. The following is importantdischarge information regarding your hospital visit. Your Care Team GIRMA CORREA Your Diagnosis Closed displaced bimalleolar fracture of right ankle Post-op pain Shortness of breath What to do next Scheduled Follow-Up Appointments Appointment Type When With Where Contact Information StatusCV OV Hospital [facility] OV 11/12/2024 03:30 PM EDT GIRMA CORREA [facility] Confirmed Follow Up Appointments Follow Up with [facility], donato, When:Within 1-2 days Follow Up with GIRMA CORREA When:Within 1-2 days Where:[address] [place] [address] [phone] Business (1) Follow Up with NANI VIVEROS DO Orthopedic When:Within 3-7 days Where:[address] [facility], [place] [address]- [phone] Additional Information: Please call office SARA to [...] Post-op pain Duration: 7 Days Pickup at [facility]/pharmacy #[id number] Unchanged albuterol (albuterol 2.5 mg/ 3 mL [...] by mouth Daily at bedtime Pharmacy Information [facility]/pharmacy #[id number]: [address] [place], [place] [phone] Please take this list to your next [...] may report side effects to FDA at [phone]-[phone]. What other drugs will affect acetaminophen and [...] affect acetaminophen and oxycodone, including prescription and cjrk-jxc-ntodswx medicines, vitamins, and herbal products. Not all [...] to ensure that the information provided by [employer]. ('[employer]') is accurate, up-to-date, and complete, but no guarantee is made to that effect. Drug information contained herein may be time sensitive. [employer] information has been compiled for use by healthcare practitioners and consumers in the [place] and therefore [employer] does not warrant that uses outside of the [place] are appropriate, unless specifically indicated otherwise. [employer] drug information does not endorse drugs, diagnose patients or recommend therapy. [employer] drug information isan informational resource designed to [...] effective or appropriate for any given patient. [employer] does not assume any responsibility for any aspect of healthcare administered with the aid of information [employer] provides. The information contained herein is not intended to cover all possible uses, directions, precautions, warnings, drug interactions, allergic reactions, or adverse effects. If you have questions about the drugs you are taking, check with your doctor, nurse or pharmacist. Copyright 8884-1894 [employer]. Version: 22.01. Revision Date: 12/29/2022. Education Materials [...] health care provider approves. Standard walker 1. it application support analyst your walker. Do not slide your standard [...] 05/15/2006 Document Revised: 04/10/2019 Document Reviewed: 04/10/2019 ElseUnified Social Patient Education 2020 Specialist Resources Global Inc. How to Care for an External [...] with a waterproof covering. General instructions Take vwdk-pns-sdbdmya and prescription medicines only as told by [...] Document Reviewed: 07/15/2019 Elsevier Patient Education 2019 Specialist Resources Global Inc. Additional Information VACCINATE! IT SAVES LIVES! Members of the community who have not yet received the COVID-19 vaccine and would like to receive it can visit one of [facility] vaccine clinics. There are many vaccine clinic locations within the [facility]. For locations and available times, please visit [email or web address].[place].gov/. It is important to note that some COVID mobile vaccine clinics are held outdoors and may be canceled in rainy or stormy conditions. To learn more about pediatric vaccinations (ages 5-11), we invite you to visit the [facility] webpage. https://www.[employer].org/pages/8954-Bwnzh-Elhtcumltik-Lltptllzjc-Blsmy-Uub stions.htmlTo learn more about the COVID-19 vaccine, we invite you to visit the CDC website for a list of frequently asked questions.https://www.cdc.gov/coronavirus/2019-ncov/vaccines/faq.html [employer] Patient Portal Access Instructions: Stay connected with your healthcare team and access your personal medical information anytime with the [employer] Patient Portal. Please follow the directions below to create your [employer] account: 1.Access the email account you provided upon registration to the hospital/physician office.2.Look for an invitation email from [facility].3.Open the email and access the invitation link: AcceptInvitation to [facility]4.Fill in the required orr to create your account. To access your account, visit [email or web address]. Click the blue button labeled "Access Patient [...] who you will allowto register on the [facility] [employer] ServicesChart Patient Portal for access to your information. You can also access the [facility] Patient Portal on the [facility] frida. Simply click on "Patient Portal" and then log into your account. If you would like to receive a full copy of your medical records, please contact the [facility] Medical Records Department by calling [phone], Monday through Monday between 8 a.m. and [...] Call your local pharmacy or go to http://[employer].Petpace/4U4Un8g to find one close to you.3.Make use of household items: Use cat litter or old coffee grounds to dispose medications if other options arenot available. Mix your drugs with these household products, seal them in an airtight container andthrow it into the garbage. Call [facility]: [phone] to be sure your drugs can be [...] aware that I should contact my doctor. Patient/Telecommunications Manager Signature: Date/Time: Relationship to Patient: Witness Name/Signature: Date/Time: [facility]pkrpfai72-15-1359 Note Discharge Instructions Thank you for allowing [facility] to assist you with your healthcare needs. The following is importantdischarge information regarding your hospital visit. Your Care Team GIRMA CORREA OPEN DIE INSPECTOR-BUILDING PRINCIPAL Your Diagnosis Closed displaced bimalleolar fracture of right ankle Post-op pain Shortness of breath What to do next Scheduled Follow-Up Appointments Appointment Type When With Where Contact Information StatusCV OV Hospital Follow Up 11/08/2024 02:30 PM EDT [facility] Edy [facility] Confirmed PC OV 11/12/2024 03:30 PM EDT GIRMA CORREA OPEN DIE INSPECTOR-BUILDING PRINCIPAL [facility] Confirmed Follow Up Appointments Follow Up with [facility], skilled, When:Within 1-2 days Follow Up with GIRMA CORREA When:Within 1-2 days Where:[address] [facility] [place] [address]- [phone] Business (1) Follow Up with NANI VIVEROS DO, Orthopedic When:Within 3-7 days Where:[address] [facility], [place] [address] [phone] Additional Information: Please call office SARA to [...] Post-op pain Duration: 7 Days Pickup at [facility]/pharmacy #[id number] Unchanged albuterol (albuterol 2.5 mg/ 3 mL [...] by mouth Daily at bedtime Pharmacy Information [facility]/pharmacy #[id number]: [address] [place], [place] [phone] Please take this list to your next [...] to receive it can visit one of [facility] vaccine clinics. There are many vaccine clinic locations within the [facility]. For locations and available times, please visit [email or web address].[place].gov/. It is important to note that some COVID mobile vaccine clinics are held outdoors and may be canceled in rainy or stormy conditions. To learn more about pediatric vaccinations (ages 5-11), we invite you to visit the [facility] webpage. https://www.[facility].org/pages/3786-Xecfm-Yfomqvlxkym-Suwoydmbrz-Jhrmf-Pxk stions.htmlTo learn more about the COVID-19 vaccine, we invite you to visit the CDC website for a list of frequently asked questions.https://www.cdc.gov/coronavirus/2019-ncov/vaccines/faq.html [facility] Patient Portal Access Instructions: Stay connected with your healthcare team and access your personal medical information anytime with the [employer] Patient Portal. Please follow the directions below to create your [employer] account: 1.Access the email account you provided upon registration to the hospital/physician office.2.Look for an invitation email from [facility].3.Open the email and access the invitation link: AcceptInvitation to [employer]4.Fill in the required orr to create your account. To access your account, visit [email or web address]. Click the blue button labeled "Access Patient [...] who you will allowto register on the [employer] Patient Portal for access to your information. You can also access the [employer] Patient Portal on the [facility] frida. Simply click on "Patient Portal" and then log into your account. If you would like to receive a full copy of your medical records, please contact the [facility] Medical Records Department by calling [phone], Monday through Monday between 8 a.m. and [...] Call your local pharmacy or go to http://[employer].Petpace/8R5Gp5o to find one close to you.3.Make use of household items: Use cat litter or old coffee grounds to dispose medications if other options arenot available. Mix your drugs with these household products, seal them in an airtight container andthrow it into the garbage. Call [facility]: [phone] to be sure your drugs can be [...] aware that I should contact my doctor. Patient/Telecommunications Manager Signature: Date/Time: Relationship to Patient: Witness Name/Signature: Date/Time: [facility] HospitalJiytsqgy80-77-8205 Orthopaedic surgery Progress note Date of Service [...] obturator, femoral, LCN, DPN, SPN, sural, saphenous, M/BUSINESS SOLUTIONS ANALYST - Calf soft and non-tender Left Lower Extremity - No pain to left lower extremity. Walking boot in place when patient is ambulating - Motor: Hip flexion/extension, quadriceps, hamstrings, gastruc/soleus, EHL/FHL intact. - DP and PT pulse 2+. Foot warm and perfused. BCR - Sensation grossly intact L2-S2: obturator, femoral, LCN, DPN, SPN, sural, saphenous, M/BUSINESS SOLUTIONS ANALYST - Calf soft and non-tender Weight Dosing [...] SUZE MISHRA DO on 10/23/2024 07:03 AM [facility] HospitalCxbwfree94-16-7157 Orthopaedic surgery Progress note Date of Service [...] obturator, femoral, LCN, DPN, SPN, sural, saphenous, M/BUSINESS SOLUTIONS ANALYST - Calf soft and non-tender Left Lower Extremity - No pain to left lower extremity. Walking boot in place when patient is ambulating - Motor: Hip flexion/extension, quadriceps, hamstrings, gastruc/soleus, EHL/FHL intact. - DP and PT pulse 2+. Foot warm and perfused. BCR - Sensation grossly intact L2-S2: obturator, femoral, LCN, DPN, SPN, sural, saphenous, M/BUSINESS SOLUTIONS ANALYST - Calf soft and non-tender Weight Dosing [...] SUZE MISHRA DO on 10/23/2024 07:03 AM [facility] HospitalKeipslhq10-63-2090 Orthopaedic surgery Progress note Date of Service [...] obturator, femoral, LCN, DPN, SPN, sural, saphenous, M/BUSINESS SOLUTIONS ANALYST - Calf soft and non-tender Left Lower Extremity - No pain to left lower extremity. Walking boot in place when patient is ambulating - Motor: Hip flexion/extension, quadriceps, hamstrings, gastruc/soleus, EHL/FHL intact. - DP and PT pulse 2+. Foot warm and perfused. BCR - Sensation grossly intact L2-S2: obturator, femoral, LCN, DPN, SPN, sural, saphenous, M/BUSINESS SOLUTIONS ANALYST - Calf soft and non-tender Weight Dosing [...] SUZE MISHRA DO on 10/22/2024 05:51 AM [facility] HospitalGqkyjype18-98-9974 Orthopaedic surgery Progress note Date of Service [...] obturator, femoral, LCN, DPN, SPN, sural, saphenous, M/BUSINESS SOLUTIONS ANALYST - Calf soft and non-tender Left Lower Extremity - No pain to left lower extremity. Walking boot in place when patient is ambulating - Motor: Hip flexion/extension, quadriceps, hamstrings, gastruc/soleus, EHL/FHL intact. - DP and PT pulse 2+. Foot warm and perfused. BCR - Sensation grossly intact L2-S2: obturator, femoral, LCN, DPN, SPN, sural, saphenous, M/BUSINESS SOLUTIONS ANALYST - Calf soft and non-tender Weight Dosing [...] SUZE MISHRA DO on 10/22/2024 05:51 AM [facility] HospitalOmqnovbl97-51-6181 Orthopaedic surgery Progress note Date of Service [...] SANDRA GARCIA DO on 10/21/2024 10:00 AM [facility] HospitalJiyivzrd78-61-1282 Orthopaedic surgery Progress note Date of Service [...] SANDRA GARCIA DO on 10/21/2024 10:00 AM [facility] HospitalCtrsnjmf47-07-8350 Pastoral care Progress note Pastoral Care Note [...] by Sanjay Lucas on 10/18/2024 04:50 PM [facility] HospitalMeplsyvh54-92-2332 Note PIN care completed by bedside RN. Ortho approved protocol orders for care daily. Digitally Signed by SHAHEEN Lou on 10/18/2024 01:37 PM [facility] HospitalSfsbdlxr46-79-5513 Note Date of Service 10/18/2024 Chief Complaint [...] by GROVER HOFFMAN on 10/18/2024 01:11 PM [facility] HospitalNqkefvrq06-01-1235 Note* Exam Date Time Procedure Performing Provider Status 10/17/24 1:14 PM XR Fluoro 1-2 Hrs Tech Time KAILEY WAHL DO; Auth (Verified) [id number] ORIGINAL EXAMINATION: TAD PETTIT - > 1 HR TECHNIQUE: Total fluoro time is 43.2 seconds. Total exposure is 2.0531 mGy. COMPARISON: CT ankle 10/17/2024, x-ray ankle 10/16/2024. HISTORY: ORDERING SYSTEM PROVIDED HISTORY: Reason for Exam: RIGHT ANKLE FX FINDINGS: Intraoperative fluoroscopic images from external surgical fixation of a distal fibular fracture. IMPRESSION: Intraoperative fluoroscopic images. Please refer to the gaming table operator's report for further information. I have personally reviewed the images of this examination and agree with the resident's findings and interpretation. Interpreted by: Beau Wahl Preliminary Report By: Nadya Hudson Electronically signed By Beau Wahl Dictated Date: 10/17/2024 1:42:02 PM Prelim Date: 10/17/2024 2:15:08 PM Sign Date: 10/17/2024 2:15:08 PM Ordering Provider: NANI VIVEROS [facility] HospitalUxdtsatq66-68-0021 Note Date of Service 10/17/2024 Chief Complaint Medical management Subjective This 54-year-old white male with a past medical history of type 2 diabetes mellitus, hypertension, COPD, HFpEF, anxiety, atrial fibrillation on Xarelto and Tikosyn presented to [facility] aftermechanical fall and subsequent ankle pain. [...] by GROVER HOFFMAN on 10/17/2024 12:52 PM [facility] HospitalVwrqryol26-97-3402 Anesthesiology Consult note Patient: CARLOS ALBERTO HOROWITZ [...] CHANTAL WHEATLEY DO on 10/17/2024 11:13 AM [facility] [id number] Note* Exam Date Time Procedure Performing Provider Status 10/17/24 10:[address] Ankle w/o Contrast Right KATHY REVELES MD; Auth (Verified) [id number] ORIGINAL EXAMINATION: CT OF THE RIGHT ANKLE [...] spanning external fixator, multiplanar 10/17. transfer from [facility]. for right ankle fracture with [...] 10/17/2024 1:17:29 PM Ordering Provider: SUZE MISHRA [facility] [id number] History and physical note Date of Service 10/16/2024 Chief Complaint Pt here from [facility] via squad after a mechanical fall causing a fracture to his right ankle. They splinted it in their ED and sent to [facility] for surgical consult. History of Present Illness Patient is a 54-year-old male who presents to the [facility] emergency department as a transfer from [facility] for his right ankle fracture. Patient [...] Blood, q24h, for 5 day(s), Preferred Lab: [facility], Stop date 10/20/24 22:00:00 EDT [...] hrs), Blood, Once, Nurse Collect, Preferred Lab: [facility], Stop date 10/16/24 21:37:00 EDT Consult to Physician, 10/16/24::00 EDT, HOSPITALISTLARRY (For Consultation Assignment OnlyNO other Orders), Routine, medical clearance, follow medically Diet Order, 10/16/24:21:00 EDT, Start Meal: Next meal, Regular, Constant Order, : N/A, : N/A Electrocardiogram(EKG), 10/16/24 21:21:00 EDT, Complete by Nursing Incentive Spirometer, 10/16/24 21::00 EDT, d2sEO-TM Intake and Output, 10/16/24 21:21:00 EDT, q8h (2p, 10p, 6a) IV Catheter Insertion/Care(Peripheral IV Insertion/Care), 10/16/24 21:21:00 EDT, IV Care: Once, 18 gauge angiocath, if possible Pulse Oximeter - Intermittent, 10/16/24:21:00 EDT, AsDirected, PRN order, On admission and as indicated Type and Screen, 10/16/24 21:21:00 EDT, URGENT (collect within 2 hrs), Blood, Once, Nurse Collect, [facility], Stop date 10/16/24 21:21:00 EDT Vital Signs, [...] RIC ARELLANO DO on 10/16/2024 09:43 PM [facility] [id number] Anesthesiology Consult note Patient: CARLOS ALBERTO HOROWITZ [...] list: Medical Asthma exacerbation / SNOMED CT 7329260004 / Confirmed COPD exacerbation / SNOMED CT 4618684089 / Confirmed Atopic dermatitis / SNOMED CT 44136099 / Confirmed Atypical chest pain / SNOMED CT 576759380 / Confirmed Morbid obesity with BMI of 40.0-44.9, adult / SNOMED CT 1779506577 / Confirmed Bronchitis / SNOMED CT 59348245 / Confirmed Cardiomyopathy / SNOMED CT 934177914 / Confirmed CHF with cardiomyopathy / SNOMED CT 31287846 / Confirmed Cough / SNOMED CT 73917407 / Confirmed Dental abscess / SNOMED CT 155393929 / Confirmed Depression / SNOMED CT 97721010 / Confirmed Dyspnea / SNOMED CT 706707519 / Confirmed Generalized anxiety disorder / SNOMED CT 92665971 / Confirmed Hypertension associated with type 2 diabetes mellitus / SNOMED CT 4799112849 / Confirmed Insomnia / SNOMED CT 916565077 / Confirmed LVH (left ventricular hypertrophy) / SNOMED CT 44478375 / Confirmed Moderate asthma / SNOMED CT 7159874389 / Confirmed Near syncope / SNOMED CT 9934595422 / Confirmed Chewing tobacco nicotine dependence / SNOMED CT 95796250 / Confirmed KOFFI (obstructive sleep apnea) / SNOMED CT 899749730 / Confirmed Right knee pain / SNOMED CT 8901717398 / Confirmed Paroxysmal atrial fibrillation / SNOMED CT 475831939 / Confirmed Screening for ischemic heart disease / SNOMED CT 717239984 / Confirmed Screening for colon cancer / SNOMED CT 911897721 / Confirmed Statin intolerance / SNOMED CT 1150584994 / Confirmed Tachyarrhythmia / SNOMED CT 18431342 / Confirmed Type 2 diabetes mellitus with hemoglobin A1c goal of less than 7.0% / SNOMED CT 288253582 / Confirmed Type 2 diabetes mellitus with hyperlipidemia / SNOMED CT 784766523 / Confirmed, Active Problems (32) Asthma exacerbation [...] Histories Past Medical History: Resolved Morbid obesity (730662326): Resolved. Diabetes mellitus (474989557): Resolved. Hypertension (2915117646): Resolved. BMI 45.0-49.9, adult (5132391707): Resolved. Anxiety (60228029): Resolved. Prediabetes (2653557007): Resolved. Obstructive sleep apnea (620922516): Resolved. Right flank pain (261666755): Resolved. Hyperlipidemia (06073465): Resolved. Mass of arm (276611305): Resolved. Family History: Cancer Father Heart disease Mother Grandparent Stroke Father Procedure history: Excision ([id number]) on 03/25/2024 at 53 Years. 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 Cardioversion ([id number]) on 12/23/2022 at 52 Years. Echocardiogram ([id number]) on 11/11/2022 at 52 Years. Comments: 03/20/2023 17:58 EKTAT - Ella Isaac MA (ABR-OE) 1. Left [...] atrial pressure is 15 mm Hg Elbow (5968253529). Comments: 07/11/2022 8:26 SHAHEEN Nunez bursitis - [...] Temp Oral36.7 DegC (OCTOBER 17:12) Heart Rate Bfnigigfw17 bpm (OCTOBER 17 00:00) ONN046 mmHg (OCTOBER 17:12) DBP82 mmHg (MAY 22 01:12) BMI44.92 (OCTOBER 17 01:29) Measurements from flowsheet : Measurements 10/17/2024 1:29 EDT Height 177.8 cm Height in inches 70 inch(es) Admission Weight 142 kg Weight Lbs 312.4 lb [place] Body Weight 73.00 kg Type of Scale [...] PRN medication effectiveness Partial Nail Bed Color [place] Capillary Refill < 2 seconds Dorsalis Pedis Pulse, Left 2+ Normal Radial Pulse, Left 2+ Normal Radial Pulse, Right 2+ Normal Respirations Unlabored Respiratory Pattern Regular All Lobes Breath Sounds Clear Abdomen Description Non-distended, Rounded Abdomen Palpation Non-Tender Passing Flatus Yes Bowel Sounds All Quadrants Present Skin Description [place], Dry Skin Temperature Warm Skin Integrity Pressure points intact Skin Turgor Elastic All Extremity Description [place], Normal for ethnicity Temperature All Extremities Warm Mucous Membrane Color [place] Mucous Membrane Description Moist Ankle Right Incision, Wound Dressing/Activity: Assessed Incision, Wound Dressing: Elastic wrap bandage Wound Associated Pain: With activity, mobilization Buttock Inferior, Inner Skin Abnormality Type: Non-pressure ulcer Skin Abnormality Color: [place], Red Incision, Wound Surrounding Tissue: Normal skin [...] EDT Designated Person #1 We May Share [facility] MARILYN [place] [phone] Designated Person #1 Relationship Sibling Designated Person #2 We May Share [facility] Designated Person #2 We May Share [facility] Privacy Restrictions Requested None Height 177.8 cm Height in inches 70 inch(es) Admission Weight 142 kg Weight Lbs 312.4 lb [place] Body Weight 73.00 kg Type of Scale [...] evident Teaching Method Explanation Preferred Spoken Language Croatian Preferred Written Language Croatian Disease Process General Education Signs/Symptoms to report, [...] 10/16/2024 16:28 EDT Status N/A [facility] Screen 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 They splinted it in their ED and sent to [facility] for surgical consult. Place Where Injury/Illness Occurred Other: [facility] Anticoagulants Taken In Past 6 Wks. [...] Non-distended, Symmetric Abdomen Palpation Non-Tender Skin Description [place], Normal for ethnicity, Dry Skin Temperature Warm Mucous Membrane Color [place] Mucous Membrane Description Moist Neurological Symptoms Patient denies Level of Consciousness Alert Eye Opening Response Luis Felipe Spontaneously Best Motor Response Au Train Obeys simple commands Best Verbal Response [place] Train Oriented Luis Felipe Coma Score 15 CLARA [...] No Weight Loss No Preferred Spoken Language Croatian Preferred Written Language Croatian Tracking Group ED Tracking Group Tracking Acuity 3 ED Diabetic Patient No Mode of Transfer Ground ambulance Ambulance Service [facility] Positioning Repositions self Standard Safety [...] ED Triage Adults . Assessment and Plan [place] Society of Anesthesiologists (ASA) physical status classification: [...] by DELORES BRAVO on 10/17/2024 07:17 AM [facility] [id number] Note Date of Service October 16, 2024 [...] KARLENE BARCENAS DO on 10/16/2024 10:38 PM [facility] HospitalPvbihohm04-02-4985 Note* Exam Date Time Procedure Performing Provider Status 10/16/24 10:24 PM Electrocardiogram - EKG - CV SA SULY YANES MD; Auth (Verified) ECG Final Report SINUS RHYTHM LEFT ANTERIOR FASCICULAR BLOCK LOW VOLTAGE, PRECORDIAL LEADS Electronic Signature: ALIZA YANES MD 10/17/2024 18:58:09 [facility] HospitalIlhksjqd56-76-4078 Note* Exam Date Time Procedure Performing Provider Status 10/16/24 10:07 PM XR Ankle Minimum 3 Views Left TRACE ROUSE MD; Auth (Verified) [id number] ORIGINAL EXAMINATION: THREE XRAY VIEWS OF THE [...] 10/16/2024 10:39:42 PM Ordering Provider: RIC ARELLANO [facility] HospitalUluwhgmw68-43-1928 History and physical note Date of Service 10/16/2024 Chief Complaint Pt here from [facility] via squad after a mechanical fall causing a fracture to his right ankle. They splinted it in their ED and sent to [facility] for surgical consult. History of Present Illness Patient is a 54-year-old male who presents to the [facility] emergency department as a transfer from [facility] for his right ankle fracture. Patient [...] q24h, for 5 day(s), Pref[facility] Lab: [facility], Stop date 10/20/24 22:00:00 EDT Bedrest, 10/16/24 21:21:00 EDT, Strict, continuous, Constant order Blood Glucose Call Parameter, 10/16/24 21:21:00 EDT, If patient is NPO for x-ray or surgery and hypoglycemic, call physician for further orders, 10/16/24:21:00 EDT Blood Glucose Call Parameter, 10/16/24 21:21:00 EDT, call provider if patient's blood glucose is <70mg/dL, 10/16/24:21:00 EDT Blood Glucose Monitoring Bedside PRN, 10/16/24 [...] q24h, for 5 day(s), Preferred Lab: [facility], Stop date 10/20/24 22:00:00 EDT Complete Metabolic Panel(CMP), 10/16/24 21:21:00 EDT, URGENT (collect within 2 hrs), Blood, Once, Nurse Collect, Preferred Lab: [facility], Stop date 10/16/24 21:37:00 EDT Consult to Physician, 10/16/24 21:21:00 EDT, HOSPITALISTLARRY (For Consultation Assignment OnlyNO other Orders), Routine, medical clearance, follow medically Diet Order, 10/16/24 21:21:00 EDT, Start Meal: Next meal, Regular, Constant Order, : N/A, : N/A Electrocardiogram(EKG), 10/16/24 21:21:00 EDT, Complete by Nursing Incentive Spirometer, 10/16/24 21:21:00 EDT, g5mER-LT Intake and Output, 10/16/24 21:21:00 EDT, q8h (2p, 10p, 6a) IV Catheter Insertion/Care(Peripheral IV Insertion/Care), 10/16/24 21:21:00 EDT, IV Care: Once, 18 gauge angiocath, if possible Pulse Oximeter - Intermittent, 10/16/24 21:21:00 EDT, AsDirected, PRN order, On admission and as indicated Type and Screen, 10/16/24 21:21:00 EDT, URGENT (collect within 2 hrs), Blood, Once, Nurse Collect, Preferred Lab: [facility], Stop date 10/16/24 21:21:00 EDT [...] RIC ARELLANO DO on 10/16/2024 09:43 PM [facility] HospitalNolzolfl32-83-7329 Note* Exam Date Time Procedure Performing Provider Status 10/16/24 8:42 PM XR Ankle Minimum 3 Views Right TRACE ROUSE MD; Auth (Verified) [id number] ORIGINAL EXAMINATION: THREE XRAY VIEWS OF THE [...] Interpreted by: Tarce Clark Preliminary Report By: Jordon Levin Electronically signed By Trace Clark Dictated Date: 10/16/2024 8:55:43 PM Prelim Date: 10/16/2024 8:57:44 PM Sign Date: 10/16/2024 9:20:54 PM Ordering Provider: RIC ARELLANO [facility] [id number] Note* Exam Date Time Procedure Performing Provider Status 10/16/24 7:09 PM XR Ankle Minimum 3 Views Right TRACE ROUSE MD; Auth (Verified) [id number] ORIGINAL EXAMINATION: THREE XRAY VIEWS OF THE [...] Sign Date: 10/16/2024 7:53:07 PM Ordering Provider: [facility]05-21-2025 Note* Exam Date Time Procedure Performing Provider Status 10/16/24 5:43 PM XR Ankle Minimum 3 Views Right TRACE ROUSE MD; Auth (Verified) [id number] ORIGINAL EXAMINATION: THREE XRAY VIEWS OF THE [...] Sign Date: 10/16/2024 6:28:12 PM Ordering Provider: [facility]05-21-2025 Evaluation + Plan noteExtracted from: [...] Blood, q24h, for 5 day(s), Preferred Lab: [facility], Stop date 10/20/24 22:00:00 EDT [...] For signs/symptoms of hypoglycemia Communication Order (continuous), 10/16/2421: EDT, Stat EKG will be obtained in the setting of new, ongoing or worsening chest discomfort/acute coronary syndrome symptoms in all nursing units and/or rhythm change in all monitored units., 10/16/24 21:21:00 EDT Complete Blood Count(CBC), 10/16/24:21:00 EDT, Timed Study (collect at specified time), Blood, q24h, for 5 day(s), Preferred Lab: [facility], Stop date 10/20/24 22:00:00 EDT Complete Metabolic Panel(CMP), 10/16/24 21:21:00 EDT, URGENT (collect within 2 hrs), Blood, Once, Nurse Collect, Preferred Lab: [facility], Stop date 10/16/24 21:37:00 EDT Consult to Physician, 10/16/24 21:21:00 EDT, HOSPITALISTLARRY (For Consultation Assignment Only NO other Orders), Routine, medical clearance, follow medically Diet Order, 10/16/24 21:21:00 EDT, Start Meal: Next meal, Regular, Constant Order, : N/A, : N/A Electrocardiogram(EKG), 10/16/24 21:21:00 EDT, Complete by Nursing Incentive Spirometer, 10/16/24 21:21:00 EDT, l6wQF-SK Intake and Output, 10/16/24 21:21:00 EDT, q8h (2p, 10p, 6a) IV Catheter Insertion/Care(Peripheral IV Insertion/Care), 10/16/24 21:21:00 EDT, IV Care: Once, 18 gauge angiocath, if possible Pulse Oximeter - Intermittent, 10/16/24 21:21:00 EDT, AsDirected, PRN order, On admission and as indicated Type and Screen, 10/16/24 21:21:00 EDT, URGENT (collect within 2 hrs), Blood, Once, Nurse Collect, Preferred Lab: [facility], Stop date 10/16/24 21:21:00 EDT [...] Appointment Date:11/08/2024 02:30:00 PM Scheduled Provider:EDY WEBER Location:[facility] Appointment Type: OV Hospital Follow Up Appointment Date:11/12/2024 03:30:00 PM Scheduled Provider:GIRMA CORREA APRN-SHAWN Location:[facility] Appointment Type: OV Future Scheduled Tests Laboratory* Basic Metabolic Panel 02/07/24 * Basic Metabolic Panel 12/10/24 * Basic Metabolic Panel 02/19/24 * Magnesium Level 02/07/24 * Complete Blood Count 08/27/24 * Complete Metabolic Panel 08/27/24 * N-Terminal proBNP 08/27/24 [facility] 05-09-2025 Hospital Discharge instructions Patient Education [...] Slowly return to your usual activities. Take dbta-ccq-qfubomx and prescription medicines only as told by [...] 02/07/2002 Document Revised: 10/15/2018 Document Reviewed: 10/15/2018 [employer] Patient Education 2020 [employer]. 10/04/2024 21:03:30 Pursed Lip Breathing Pursed Lip [...] exercise. Follow these instructions at home: Take gfff-yds-nkdriwf and prescription medicines only as told by [...] 02/21/2009 Document Revised: 04/27/2018 Document Reviewed: 04/06/2017 [employer] Patient Education 2020 [employer]. 10/04/2024 21:03:27 Cough, Adult Cough, Adult Coughing [...] Follow these instructions at home: Medicines Take pyem-fos-cbdrbra and prescription medicines only as told by [...] of a condition that needs treatment. Take lham-dwh-bsgnzjd and prescription medicines only as told by [...] 11/11/2011 Document Revised: 06/03/2019 Document Reviewed: 06/03/2019 [employer] Patient Education 2020 [employer]. Follow Up Care 10/02/2024 02:08:49 With:readmission score is 13 Address:Unknown When: Unknown With:GIRMA CORREA Address: [address] [place] [address] [phone] Business (1) When:1-2 days [facility] 05-09-2025 Note Discharge Instructions Thank you for allowing [facility] to assist you with your healthcare needs. The following is importantdischarge information regarding your hospital visit. Your Care Team GIRMA CORREA Your Diagnosis Shortness of breath What to do next Scheduled Follow-Up Appointments Appointment Type When With Where Contact Information StatusPC OV 10/23/2024 04:00 PM EDT GIRMA CORREA [facility] Confirmed CV OV Hospital Follow Up 11/08/2024 02:30 PM [facility] Follow Up with readmission score is 13 Follow Up with GIRMA CORREA When:Within 1-2 days Where:[address] [place], [place] [address]- [phone] Business (1) The Following Activity and Diet [...] within 14 days after discharge, please call CV at [phone]. Post Acute Orders No qualifying data available. [...] a day Take with food Pickup at [facility]/pharmacy #[id number] Unchanged acetaminophen (Tylenol) by mouth As needed [...] Two (2) times a day Pickup at [facility]/pharmacy #[id number] Unchanged dulaglutide (Trulicity Pen 1.5 mg/ 0.5 [...] by mouth Daily at bedtime Pickup at [facility]/pharmacy #[id number] Unchanged spironolactone (spironolactone 25 mg oral tablet) 1 tab(s) by mouth Once a day Duration: 90 Days Unchanged tiZANidine (tiZANidine 2 mg oral tablet) 1 tab(s) by mouth Every 8 hours as needed for as needed for muscle spasm Duration: 7 Days Unchanged traZODone (traZODone 100 mg oral tablet) 1 tab(s) by mouth Daily at bedtime Pharmacy Information [facility]/pharmacy #[id number]: [address] [place], [place] [id number] [phone] Please take this list to your next [...] may report side effects to FDA at 8-248-LGD-1605. What other drugs will affect hydroxyzine? Taking [...] may interact with hydroxyzine, including prescription and twij-obk-jstcvwi medicines, vitamins, and herbal products. Not all [...] to ensure that the information provided by [employer]. ('[employer]') is accurate, up-to-date, and complete, but no guarantee is made to that effect. Drug information contained herein may be time sensitive. [employer] information has been compiled for use by healthcare practitioners and consumers in the [place] and therefore [employer] does not warrant that uses outside of the [place] are appropriate, unless specifically indicated otherwise. [employer] drug information does not endorse drugs, diagnose patients or recommend therapy. [employer] drug information isan informational resource designed to [...] effective or appropriate for any given patient. [employer] does not assume any responsibility for any aspect of healthcare administered with the aid of information [employer] provides. The information contained herein is not intended to cover all possible uses, directions, precautions, warnings, drug interactions, allergic reactions, or adverse effects. If you have questions about the drugs you are taking, check with your doctor, nurse or pharmacist. Copyright 6715-7123 [employer]. Version: 8.01. Revision Date: 08/10/2016. furosemide (oral/injection) [...] wireless accessories such as remote control, or [employer] devices. Do not reuse a needle, syringe [...] blood pressure, such as diet pills or quddz-gnx-qfqu medicine. What are the possible side effects [...] may report side effects to FDA at 6-734-DGJ-9634. What other drugs will affect furosemide? Sometimes [...] drugs may affect furosemide, including prescription and qvss-pcm-pebozif medicines, vitamins, and herbal products. Not all [...] to ensure that the information provided by [employer]. ('[employer]') is accurate, up-to-date, and complete, but no guarantee is made to that effect. Drug information contained herein may be time sensitive. [employer] information has been compiled for use by healthcare practitioners and consumers in the [place] and therefore [employer] does not warrant that uses outside of the [place] are appropriate, unless specifically indicated otherwise. [employer] drug information does not endorse drugs, diagnose patients or recommend therapy. [employer] drug information isan informational resource designed to [...] effective or appropriate for any given patient. [employer] does not assume any responsibility for any aspect of healthcare administered with the aid of information [employer] provides. The information contained herein is not intended to cover all possible uses, directions, precautions, warnings, drug interactions, allergic reactions, or adverse effects. If you have questions about the drugs you are taking, check with your doctor, nurse or pharmacist. Copyright 4389-6838 [employer]. Version: .. Revision Date: 11/07/2023. cetirizine (oral/injection) (se CANDY a zehollis) All Day Allergy (Cetirizine), All Day Allergy [...] may report side effects to FDA at 8-016-JMC-9467. What other drugs will affect cetirizine? Using cetirizine with other drugs that make you drowsy can worsen this effect. Ask your doctor before using opioid medication, a sleeping pill, a muscle relaxer, or medicine for anxiety or seizures. Other drugs may affect cetirizine, including prescription and qsrv-euu-whubyff medicines, vitamins,and herbal products. Tell your doctor [...] to ensure that the information provided by [employer]. ('[employer]') is accurate, up-to-date, and complete, but no guarantee is made to that effect. Drug information contained herein may be time sensitive. [employer] information has been compiled for use by healthcare practitioners and consumers in the [place] and therefore [employer] does not warrant that uses outside of the [place] are appropriate, unless specifically indicated otherwise. [employer]'s drug information does not endorse drugs, diagnose patients or recommend therapy. [employer] drug information isan informational resource designed to [...] effective or appropriate for any given patient. [facility] does not assume any responsibility for any aspect of healthcare administered with the aid of information [facility] provides. The information contained herein is not intended to cover all possible uses, directions, precautions, warnings, drug interactions, allergic reactions, or adverse effects. If you have questions about the drugs you are taking, check with your doctor, nurse or pharmacist. Copyright 9514-9927 [facility] [employer]. Version: 13.. Revision Date: 11/16/2022. dofetilide (mathias [...] may report side effects to FDA at 0-954-RFW-0509. What other drugs will affect dofetilide? Other drugs may interact with dofetilide, including prescription and xnxp-ozj-awqphhm medicines, vitamins, and herbal products. Tell each [...] to ensure that the information provided by [employer]. ('[employer]') is accurate, up-to-date, and complete, but no guarantee is made to that effect. Drug information contained herein may be time sensitive. [employer] information has been compiled for use by healthcare practitioners and consumers in the [place] and therefore [employer] does not warrant that uses outside of the [place] are appropriate, unless specifically indicated otherwise. [employer] drug information does not endorse drugs, diagnose patients or recommend therapy. [employer] drug information isan informational resource designed to [...] effective or appropriate for any given patient. [employer] does not assume any responsibility for any aspect of healthcare administered with the aid of information [employer] provides. The information contained herein is not intended to cover all possible uses, directions, precautions, warnings, drug interactions, allergic reactions, or adverse effects. If you have questions about the drugs you are taking, check with your doctor, nurse or pharmacist. Copyright 6049-2242 [employer]. Version: 4.01. Revision Date: 09/09/2015. allopurinol (oral/injection) [...] and call your (more content not included)... [facility] HospitalAleqtfdt41-05-0780 Pastoral care Progress note Pastoral Care Note [...] by Sanjay Lucas on 10/04/2024 04:16 PM [facility] [id number] Discharge summary Date of Service 10/04/2024 Discharge [...] When:Within 1-2 days Where:[address] [facility] [place] [address] [phone] Business (1) Follow Up Appointments No qualifying data available. Follow Up Labs/Studies Discharge Labs No Follow-up Labs Discharge Studies No Follow-up Studies Discharge Diet No qualifying data available. Discharge Activity No qualifying data available. Readmission Risk/Palliative Score LACE Score: 13 (10/02/24 10:21:00) Palliative Total Score: 1 (10/02/24 10:21:00) Digitally Signed by DUSTIN RICHARD MD on 10/04/2024 12:27 PM [id number] Discharge summary Date of Service 10/04/2024 Discharge [...] 1-2 days Where:[address] [place] [address]- [phone] Business (1) Follow Up Appointments No qualifying data available. Follow Up Labs/Studies Discharge Labs No Follow-up Labs Discharge Studies No Follow-up Studies Discharge Diet No qualifying data available. Discharge Activity No qualifying data available. Readmission Risk/Palliative Score LACE Score: 13 (10/02/24 10:21:00) Palliative Total Score: 1 (10/02/24 10:21:00) Digitally Signed by DUSTIN RICHARD MD on 10/04/2024 12:27 PM [facility]Eyiszdlp19-95-1627 Cardiology Progress note Date of Service 10/03/2024 [...] DUSTIN RICHARD MD on 10/03/2024 01:50 PM [facility] [id number] Note* Exam Date Time Procedure Performing Provider Status 10/03/24 10:08 PM Electrocardiogram - EKG - CV JOHNIE VELÁZQUEZ MD; Auth (Verified) ECG Final Report SINUS RHYTHM LEFT AXIS DEVIATION LOW VOLTAGE, PRECORDIAL LEADS Electronic Signature: JOHNIE VELÁZQUEZ MD 10/04/2024 21:58:08 [facility] [id number] Note* Exam Date Time Procedure Performing Provider Status 10/03/24 4:01 PM Echocardiogram, Adult - CV ALIZA YANES MD; Auth (Verified) [facility] [id number] Cardiology Progress note Date of Service 10/03/2024 [...] DUSTIN RICHARD MD on 10/03/2024 01:50 PM [facility] [id number] Note* Exam Date Time Procedure Performing Provider Status 10/03/24 10:03 AM Electrocardiogram - EKG - CV JOHNIE VELÁZQUEZ MD; Auth (Verified) ECG Final Report SINUS RHYTHM LOW VOLTAGE, PRECORDIAL LEADS CONSIDER ANTERIOR INFARCT Electronic Signature: JOHNIE VELÁZQUEZ MD 10/04/2024 21:57:56 [facility] [id number] Note* Exam Date Time Procedure Performing Provider Status 10/02/24 10:04 PM Electrocardiogram - EKG - CV JOHNIE VELÁZQUEZ MD; Auth (Verified) ECG Final Report SINUS RHYTHM LEFT ANTERIOR FASCICULAR BLOCK PROLONGED QT INTERVAL Electronic Signature: JOHNIE VELÁZQUEZ MD 10/03/2024 19:52:07 [facility] [id number] History and physical note Date of Service [...] Diabetes mellitus Patient is currently in in [facility]. Rate is relatively well-controlled. Continue Cardizem drip. [...] DUSTIN RICHARD MD on 10/02/2024 03:28 PM [facility] HospitalDjifqnww42-05-0091 Note Date of Service October 02, 2024 [...] only), Blood, Once, Nurse Collect, Preferred Lab: [facility], Stop date 10/03/24 5:00:00 EDT [...] by MARILUZ BUI on 10/02/2024 02:36 PM [facility] HospitalBedyzezh06-48-8497 Note Date of Service October 02, 2024 [...] only), Blood, Once, Nurse Collect, Preferred Lab: [facility], Stop date 10/03/24 5:00:00 EDT [...] by MARILUZ BUI on 10/02/2024 02:36 PM [facility] HospitalQvtefvik04-06-0556 Evaluation + Plan noteExtracted from: Title:History and Physical Author:DUSTIN RICHARD MD Date:10/02/24 Paroxysmal atrial fibrillati on Tachyarrhythmia induced cardiomyopathy Heart failure with improved EF (EF 30 to 35% in October 2022 to 55% in 2023) Moderate to severe LVH Mild pulmonary hypertension Severely dilated LA (LA 5.1 cm, DANIEL??) Obesity and KOFFI (intolerant to CPAP) Hypertension Diabetes mellitus Patient is currently in in [facility] A-fib. Rate is relatively [...] Appointment Date:10/23/2024 04:00:00 PM Scheduled Provider:GIRMA CORREA Location:[facility] Appointment Type:PC OV Appointment Date:11/08/2024 02:30:00 PM Scheduled Provider:EDY WEBER [facility] Type[facility] Hospital Follow Up Diagnostic Tests Pending * Urinalysis w/ C&S if Indicated 10/02/24 Future Scheduled Tests Laboratory* Basic Metabolic Panel 02/07/24 * Basic Metabolic Panel 12/10/24 * Basic Metabolic Panel 02/19/24 * Magnesium Level 02/07/24 * Complete Blood Count 08/27/24 * Complete Metabolic Panel 08/27/24 * N-Terminal proBNP 08/27/24 [facility] 05-07-2025 Note* Exam Date Time Procedure Performing Provider Status 10/02/24 1:53 PM Electrocardiogram - EKG - CV Brant VELÁZQUEZ MD; Auth (Verified) ECG Final Report SINUS RHYTHM PROBABLE LEFT ATRIAL ENLARGEMENT Left axis deviation Electronic Signature: JOHNIE VELÁZQUEZ MD 10/03/2024 19:51:33 [facility] HospitalUawfeeno55-86-3421 History and physical note Date of Service [...] is [place] in [place] [facility]. Rate is relatively well-controlled. Continue Cardizem drip. [...] DUSTIN RICHARD MD on 10/02/2024 03:28 PM [facility] HospitalBcbqljdh23-43-0543 Respiratory therapy Hospital Progress note Respiratory Therapy [...] by CURTIS Patton on 10/02/2024 11:12 AM [facility] HospitalYhnvzuzx65-03-7534 Note* Exam Date Time Procedure Performing Provider Status 10/02/24 8:23 AM Electrocardiogram - EKG - CV Brant VELÁZQUEZ MD; Auth (Verified) ECG Final Report ATRIAL FIBRILLATION LEFT ANTERIOR FASCICULAR BLOCK Electronic Signature: JOHNIE VELÁZQUEZ MD 10/03/2024 19:51:22 [facility] [id number] Note* Exam Date Time Procedure Performing Provider Status 10/02/24 6:24 AM Electrocardiogram - EKG - CV Brant VELÁZQUEZ MD; Auth (Verified) ECG Final Report ATRIAL FIBRILLATION WITH RAPID VENTRICULAR RESPONSE Right axis deviation Electronic Signature: JOHNIE VELÁZQUEZ MD 10/03/2024 19:51:11 [facility] HospitalYiqotywa11-01-4328 Nurse Progress note bryon Curtisharpreet [phone] Digitally Signed by Halley Staples RN on [...] Chest 1 View DARNELL MOLINA MD; [facility] (Verified) [id number] ORIGINAL EXAMINATION: ONE XRAY VIEW OF THE [...] AOH] - CV DELORES MURO DO; [facility] (Verified) ECG Final Report Atrial fibrillation Inferior infarct, old Probable anteroseptal infarct, old Prolonged QT interval Baseline wander in lead(s) III,V1,V2,V5,V6 Compared to ECG at 08/13/2024 11:03:57 Electronic Signature: DELORES MURO DO 10/02/2024 02:28:42 [facility]10-30-2024 Note The [...] case of Gross Only. [facility] 09-11-2024 Evaluation + Plan note Future Scheduled Tests Laboratory* Basic Metabolic Panel 02/07/24 * Basic Metabolic Panel 12/10/24 * Basic Metabolic Panel 02/19/24 * Magnesium Level 02/07/24 * Complete Blood Count 08/27/24 * Complete Metabolic Panel 08/27/24 * N-Terminal proBNP 08/27/24 [facility] 09-09-2024 Note. MICRO - [...] Locations *1: This test was performed at: [address], [address] [place], [place] [address]84[address]-09-2024 Note. MICRO - Microbiology PROCEDURE: Blood Culture [...] Locations *1: This test was performed at: [address], [address] [place], [place] [address]84[address]-09-2024 Note. MICRO - Microbiology PROCEDURE: Blood Culture [...] Locations *1: This test was performed at: [address], [address] [place], [place] [address]-09-2024 Note. MICRO - Microbiology PROCEDURE: Blood Culture [...] Locations *1: This test was performed at: [address], [facility] , [facility] [id number] Hospital Discharge instructions Patient Education 02/01/2024 17:18:13 Atrial Fibrillation, Bkdd-tl-Tpbm Atrial Fibrillation Atrial fibrillation is a type [...] Follow these instructions at home: Medicines Take uokf-qmm-gehznhn and prescription medicines only as told by [...] 02/21/2009 Document Revised: 07/19/2018 Document Reviewed: 07/06/2018 [employer] Patient Education 2020 [employer]. Follow Up Care 01/31/2024 00:20:11 With:GIRMA CORREA Address: [address] [place] [address]- When:1-2 days Comments:Please call the office to schedule a hospital follow-up appointment. [facility] 09-05-2024 Note Discharge Instructions Thank you for allowing [facility] to assist you with your healthcare needs. The following is importantdischarge information regarding your hospital visit. Your Care Team GIRMA CORREA Your Diagnosis Shortness of breath What to do next Instructions From Your Doctor Resume taking all your usual medications Keep yourself hydrated Follow-up with your primary care physician and curator of collections Scheduled Follow-Up Appointments Appointment Type When With Where Contact Information Status Wellness Annual w/Labs 02/13/2024 03:30 PM EDT GIRMA CORREA [facility] Confirmed Follow Up Appointments Follow Up with GIRMA CORREA When:Within 1-2 days Where:[address] [place] [address]- Additional Information: Please call the office to [...] Follow these instructions at home: Medicines Take algk-mxm-kizpiyg and prescription medicines only as told by [...] 02/21/2009 Document Revised: 07/19/2018 Document Reviewed: 07/06/2018 [employer] Patient Education 2020 [employer] Additional Information VACCINATE! IT SAVES LIVES! Members of the community who have not yet received the COVID-19 vaccine and would like to receive it can visit one of [facility] vaccine clinics. There are many vaccine clinic locations within the [facility]. For locations and available times, please visit [email or web address].[place].gov/. It is important to note that some COVID mobile vaccine clinics are held outdoors and may be canceled in rainy or stormy conditions. To learn more about pediatric vaccinations (ages 5-11), we invite you to visit the [facility] webpage. [email or web address]/[email or web address] [email or web address] learn more about the COVID-19 vaccine, we invite you to visit the CDC website for a list of frequently asked questions.https://www.cdc.gov/coronavirus/2019-ncov/vaccines/faq.html [facility] Patient Portal Access Instructions: Stay connected with your healthcare team and access your personal medical information anytime with the [facility] Patient Portal. Please follow the directions below to create your [facility] account: 1.Access the email account you provided upon registration to the hospital/physician office.2.Look for an invitation email from [facility].3.Open the email and access the invitation link: AcceptInvitation to [facility].4.Fill in the required orr to create your account. To access your account, visit [email or web address]. Click the blue button labeled "Access Patient [...] who you will allowto register on the [facility] Patient Portal for access to your information. You can also access the [facility] [facility] [employer] Patient Portal on the [facility] frida. Simply click on "Patient Portal" and then log into your account. If you would like to receive a full copy of your medical records, please contact the [facility] Medical Records Department by calling [phone], Monday through Monday between 8 a.m. and [...] Call your local pharmacy or go to http://bit.ly/2M5Gg7i to find one close to you.3.Make use of household items: Use cat litter or old coffee grounds to dispose medications if other options arenot available. Mix your drugs with these household products, seal them in an airtight container andthrow it into the garbage. Call [facility]: [phone] to be sure your drugs can be [...] COPY. Signatures Patient Education Materials Atrial Fibrillation, Pouz-bj-Lpre Medication Leaflets My discharge plan and instructions have been reviewed and explained to me and I,CARLOS ALBERTO HOROWIZT understand my current condition and have read and understand these discharge instructions. I have received awritten copy of the plan/instructions. If I have questions, I am aware that I should contact my doctor. Patient/Telecommunications Manager Signature: Date/Time: Relationship to Patient: Witness Name/Signature: Date/Time: [facility] HospitalSoeyaklt71-06-0586 Discharge summary Date of Service 02/01/2024 Discharge [...] diabetes mellitus. The patient presented to the [facility] as a transfer from [place] for A-fib with RVR. Apparently the patient [...] Follow-up with your primary care physician and curator of collections Medications Unchanged acetaminophen (Tylenol)by mouth as needed [...] When:Within 1-2 days Where:[address] [place] [address]- Additional Information: Please call the office to [...] spent in discharge planning Digitally Signed by BRENONN INGRAM MD on 02/01/2024 04:53 PM [facility] HospitalKcndmkfg03-54-4791 Cardiology Progress note HPI: 53-year-old morbidly obese [...] murmurs appreciated Abdomen benign Extremities good pulses [employer] grossly intact Skin warm to touch Laboratory [...] FREDDY HARTLEY MD on 02/01/2024 04:26 PM [facility] HospitalScjuebmz57-47-6521 Anesthesiology Consult note Patient: CARLOS ALBERTO HOROWITZ [...] device, # 1 EA, 0 Refill(s), Pharmacy: [facility], 177.8, cm, 11/28/23 13:54:00 EDT, Height, 151.4, kg, 11/28/23 13:54:00 EDT, Dosin... Blood Glucose Test Strips: See Instructions, 1 bottle of 100 Test once daily, # 1 EA, 11 Refill(s), Pharmacy: [facility], 177.8, cm, 11/28/23 13:54:00 EDT, Height, 151.4, kg, 11/28/23 13:54:00 EDT, Dosing Weight FLUoxetine 20 mg oral capsule: Dose : 20 mg = 1 cap(s), Oral, qDay, # 30 cap(s), 3 Refill(s), Pharmacy: [facility], 177.8, cm, 11/28/23 13:54:00 EDT, Height, kg, 11/28/23 13:54:00 EDT,Dosing Weight Lancets: See Instructions, qs 1 month supply Test once daily, # 1 EA, 11 Refill(s), Pharmacy: [facility], 177.8, cm, 11/28/23 13:54:00 EDT, Height, 151.4, kg, 11/28/23 13:54:00 EDT, Dosing Weight Lasix 40 mg oral tablet: See Instructions, 1 tab in AM and 0.5 tab in PM, # 135 tab(s), 3 Refill(s), Pharmacy: [facility], 177.8, cm, 11/28/23 13:54:00 EDT, Height, kg, 11/28/23 13:54:00 EDT, Dosing Weight Symbicort 80 mcg-4.5 mcg/inh Inhaler: Dose = 2 puff(s), Inhalation, BID, # 10.2 gram(s), 3 Refill(s), Pharmacy: [facility], 177.8, cm, 11/28/23 13:54:00 EDT, Height, kg, 11/28/23 13:54:00 EDT, Dosing Weight Tikosyn 250 mcg oral capsule: Dose : 250 mcg = 1 cap(s), Oral, BID, # 180 cap(s), 3 Refill(s), Pharmacy: [facility]/pharmacy #[id number], 177.8, cm, 11/28/23 13:54:00 EDT, Height, kg, 11/28/23 13:54:00 EDT, Dosing Weight Toprol-XL 100 mg oral tablet, extended release: Dose : 100 mg = 1 tab(s), Oral, BID, do not crush or chew, # 180 tab(s), 3 Refill(s), Pharmacy: [facility], Shortness of breath, 177.8, cm, 11/28/23 13:54:00 EDT, Height, kg, 11/28/23 13:54:00 EDT, Dosing Weight Trulicity Pen 1.5 mg/0.5 mL subcutaneous solution: Dose : 1.5 mg =, Subcutaneous, qWeek, sent in absence of PCP, # 4 EA, 3 Refill(s), Pharmacy: [facility], 177.8, cm, 11/28/23 13:54:00EDT, Height, kg, 11/28/23 13:54:00 EDT, Dosing Weight Vistaril 25 mg oral capsule: Dose : 25 mg = 1 cap(s), Oral, QID, PRN as needed for anxiety, X 30 day(s), # 120 cap(s), 5 Refill(s), 06/09/24 16:10:00 EST, Pharmacy: [facility], 177.8, cm, 11/28/23 13:54:00 EDT, Height, kg, 11/28/23 13:54:00 EDT, Dosing Weight Xarelto 20 mg oral tablet: Dose : 20 mg = 1 tab(s), Oral, qHS, # 90 tab(s), 3 Refill(s), Pharmacy: [facility], 177.8, cm, 11/28/23 13:54:00 EDT, Height, 151.4, kg, 11/28/23 13:54:00 EDT, Dosing Weight allopurinol 100 mg oral tablet: Dose : 100 mg = 1 tab(s), Oral, qDay, # 90 tab(s), 3 Refill(s), Pharmacy: [facility], 177.8, cm, 11/28/23 13:54:00 EDT, Height, kg, 11/28/23 13:54:00 EDT, Dosing Weight cetirizine 10 mg oral tablet: Dose : 10 mg = 1 tab(s), Oral, Daily, # 90 tab(s), 3 Refill(s), Pharmacy: [facility], 177.8, cm, 11/28/23 13:54:00 EDT, Height, kg, 11/28/23 13:54:00 EDT,Dosing Weight nystatin 100,000 units/g topical cream: Apply 1 frida, Topical, BID, X 10 day(s), # 30 gram(s), 1 Refill(s), Pharmacy: [facility]/pharmacy #[id number], Cream, 177, cm, 01/12/24 9:42:00 EDT, Height, 148.6, kg, 01/12/24 9:42:00 EDT, Dosing Weight omeprazole 40 mg oral delayed release capsule: Dose : 40 mg = 1 cap(s), Oral, BID, before a meal., # 180 cap(s), 3 Refill(s), Pharmacy: [facility], 177.8, cm, 11/28/23 13:54:00 EDT, Height, kg, 11/28/23 13:54:00 EDT, Dosing Weight rosuvastatin 20 mg oral tablet: Dose : 20 mg = 1 tab(s), Oral, Daily, # 100 tab(s), 3 Refill(s), Pharmacy: [facility], 177.8, cm, 11/28/23 13:54:00 EDT, Height, kg, 11/28/23 13:54:00 EDT, Dosing Weight sacubitril-valsartan 49 mg-51 mg oral tablet: Dose = 1 tab(s), Oral, BID, # 180 tab(s), 3 Refill(s), Pharmacy: [facility], 177.8, cm, 11/28/23 13:54:00 EDT, Height, kg, 11/28/23 13:54:00 EDT, Dosing Weight spironolactone 25 mg oral tablet: Dose : 25 mg = 1 tab(s), Oral, qDay, # 90 tab(s), 3 Refill(s), Pharmacy: [facility], 177.8, cm, 11/28/23 13:54:00 EDT, Height, kg, 11/28/23 13:54:00 EDT, Dosing Weight tiZANidine 2 mg oral tablet: Dose : 2 mg = 1 tab(s), Oral, q8h, PRN as needed for muscle spasm, # 90 tab(s), 2 Refill(s), Pharmacy: [facility], 177.8, cm, 11/28/23 13:54:00 EDT, Height, kg, 11/28/23 13:54:00 EDT, Dosing Weight traZODone 100 mg oral tablet: Dose : 100 mg = 1 tab(s), Oral, qHS, # 90 tab(s), 3 Refill(s), Pharmacy: [facility], 177.8, cm, 11/28/23 13:54:00 EDT, [...] list: Medical Asthma exacerbation / SNOMED CT 6517949921 / Confirmed Anxiety / SNOMED CT 44399744 / Confirmed Atopic dermatitis / SNOMED CT 99543159 / Confirmed BMI 45.0-49.9, adult / SNOMED CT 8064882868 / Confirmed Cardiomyopathy / SNOMED CT 721393535 / Confirmed Diabetes mellitus / SNOMED CT 620600407 / Confirmed Generalized anxiety disorder / SNOMED CT 38409957 / Confirmed Hyperlipidemia / SNOMED CT 75785799 / Confirmed Hypertension / SNOMED CT 2698966049 / Confirmed Insomnia / SNOMED CT 064471029 / Confirmed Moderate asthma / SNOMED CT 4418017797 / Confirmed Morbid obesity / SNOMED CT 157616452 / Confirmed Chewing tobacco nicotine dependence / SNOMED CT 63364886 / Confirmed Obstructive sleep apnea / SNOMED CT 022929388 / Confirmed Right knee pain / SNOMED CT 8055673848 / Confirmed Paroxysmal atrial fibrillation / SNOMED CT 545118559 / Confirmed Screening for ischemic heart disease / SNOMED CT 388646832 / Confirmed Screening for colon cancer / SNOMED CT 353735148 / Confirmed Prediabetes / SNOMED CT 6996715817 / Confirmed Right flank pain / SNOMED CT 916968576 / Confirmed Type 2 diabetes mellitus with hemoglobin A1c goal of less than 7.0% / SNOMED CT 954249695 / Confirmed Wheezing / SNOMED CT 26484033 / Confirmed, Active Problems (26) Anxiety Asthma [...] Mother Grandparent Stroke Father Procedure history: Cardioversion ([id number]) on 12/23/2022 at 52 Years. Echocardiogram ([id number]) on 11/11/2022 at 52 Years. Comments: 03/20/2023 [...] atrial pressure is 15 mm Hg Elbow ([id number]). Comments: 07/11/2022 8:26 SHAHEEN Nunez - right [...] On and Limits Checked Nail Bed Color [place] Capillary Refill < 2 seconds Heart Sounds [...] Elimination Voiding, no difficulties All Extremity Description [place] Skin Temperature Warm Temperature All Extremities Warm Skin Description [place], Dry Skin Integrity Intact Skin Turgor Non-Elastic Mucous Membrane Color [place] Mucous Membrane Description Moist Neurological Language Able to speak clearly Neurological Symptoms Patient denies Gait Unable to assess Extremity Movement Equal Swallowing Difficulty None Characteristics of Communication Appropriate Characteristics of Speech Clear Facial Symmetry Symmetric Level of Consciousness Alert Aspiration Risk None Eye Opening Response Luis Felipe Spontaneously Best Motor Response [place] Obeys simple commands Best Verbal Response [place] Oriented Luis Felipe Coma Score 15 CLARA [...] On and Limits Checked Nail Bed Color [place] Capillary Refill < 2 seconds Heart Sounds ICU S1S2 Heart Rhythm Irregular Cardiac Rhythm Sinus rhythm Monitoring Lead II, V5/MCL5 WI Interval 0.16 second(s) QRS Duration 0.08 second(s) [...] Elimination Voiding, no difficulties All Extremity Description [place] Skin Temperature Warm Temperature All Extremities Warm Skin Description [place], Dry Skin Integrity Intact Skin Turgor Non-Elastic Mucous Membrane Color [place] Mucous Membrane Description Moist Neurological Language Able to speak clearly Neurological Symptoms Patient denies Gait Unable to assess Extremity Movement Equal Swallowing Difficulty None Characteristics of Communication Appropriate Characteristics of Speech Clear Facial Symmetry Symmetric Level of Consciousness Alert Aspiration Risk None Eye Opening Response Luis Felipe Spontaneously Best Motor Response [place] Obeys simple commands Best Verbal Response [place] Oriented Luis Felipe Coma Score 15 CLARA [...] On and Limits Checked Nail Bed Color [place] Capillary Refill < 2 seconds Heart Sounds [...] Movement Makes facial grimaces All Extremity Description [place] Skin Temperature Warm Temperature All Extremities Warm Skin Description [place], Dry Skin Integrity Intact Skin Turgor Non-Elastic Mucous Membrane Color [place] Mucous Membrane Description Moist Sensory Perception [place] [...] On and Limits Checked Nail Bed Color [place] Capillary Refill < 2 seconds Heart Sounds [...] intact Skin Turgor Non-Elastic Mucous Membrane Color [place] Mucous Membrane Description Moist Neurological Language Able to speak clearly Neurological Symptoms Patient denies Extremity Movement Equal Swallowing Difficulty None Characteristics of Communication Appropriate Characteristics of Speech Clear Facial Symmetry Symmetric Level of Consciousness Alert Aspiration Risk None Eye Opening Response Luis Felipe Spontaneously Best Motor Response [place] Obeys simple commands Best Verbal Response Luis [...] of Bed Elevated 30 01/31/2024 15:38 EDT [facility] Current Living Situation I have a steady place to live [facility] Current Issues Living Environment None [facility] Worried Food Running Out P12M Never true [facility] Food Gone, No Money To Buy P12M Never true [facility] No Transport Med/Appt/Work P12M No [facility] Utilities Threaten Shut Off P12M No [facility] Anyone Physically Hurt You Never (1) [facility] Anyone Insult Or Talk Down To You Never (1) [facility] Anyone Threaten You With Harm Never (1) [facility] Anyone Scream Or Curse At You Never (1) [facility] Safety Total Score 4 Living Situation Lives with family Discharge To, Anticipated Home independently Anticipated Discharge Date 02/02/2024 Transition Planning Note Transition Planning Initial Assessment 01/31/2024 15:36 EDT Primary Care Phone Message Transition of Care sent from [facility] 01/31/2024 14:59 EDT heparin 9,000 unit(s) unit(s) Dextrose 5% Premix Diluent 90 mL mL 01/31/2024 14:43 EDT [place] Body Weight 72.7 kg Home Diet Regular Weight Chg, Unintentional Nutrition Hx Weight stable per [place] history Appetite Good Nutrition Plan of Care Dietitian follow up/monitor, Encourage PO feedings, Participate in team conference Nutrition Follow-Up Needed Yes Days until [employer] Super[employer]endant Follow Up Seven days Adult Nutrition Initial [...] On and Limits Checked Nail Bed Color [place] Capillary Refill < 2 seconds Heart Rhythm [...] Description Normal for ethnicity Mucous Membrane Color [place] Mucous Membrane Description Moist Hand Right 01/30/2024 [...] On and Limits Checked Nail Bed Color [place] Capillary Refill < 2 seconds Heart Rhythm [...] intact Skin Turgor Non-Elastic Mucous Membrane Color [place] Mucous Membrane Description Moist Continuous IV Infusions [...] On and Limits Checked Nail Bed Color [place] Capillary Refill < 2 seconds Heart Rhythm Irregular Pretibial edema Bilateral Edema Ratin+ trace/2mm Cardiac Rhythm Atrial fibrillation Monitoring Lead II, V6/MCL6 Alarms On and Functional Yes Respirations Unlabored Respi (more content not included)... [id number] NoteSINUS RHYTHM IVCD MISSING LEAD(S): V1,V2,V3,V4,V5 Electronic Signature: MOY WATTS MD 02/01/2024 11:10:55[facility] 09-04-2024 Cardiology Consult note Date of [...] and gout who initially presented to [facility] on 01/30/2024 for shortness of breath [...] not tolerate Cardizem drip. Patient transferred to [facility] for further management. Placed on Levophed. [...] (s): 1.87 H Assessment/Plan A-fib with RVR ([id number] 2) Near syncopal episode Tachycardia mediated cardiomyopathy [...] Will continue to follow. Patient seen with curator of collections Dr. Hartley who agreed with plan. Please [...] MICHELLE HENRY MD on 01/31/2024 12:53 PM [facility] [id number] Note* Exam Date Time Procedure Performing Provider Status 01/31/24 4:20 PM Echocardiogram, Adult - CV Auth (Verified) [facility] 09-04-2024 Note. MICRO - Microbiology PROCEDURE: [...] Locations *1: This test was performed at: [facility], [address] [place] [address], [facility] , [facility] ([place])01-31-2024 Note. MICRO - Microbiology PROCEDURE: Blood Culture [...] Locations *1: This test was performed at: [facility], [address] [place] [address], [facility]- , [facility] ([place])01-31-2024 Evaluation + Plan noteExtracted from: Title:History and [...] prophylactically got a dose of ceftriaxone at [place]. We will continue with prophylactic ceftriaxone dose [...] atrial fibrillation with rapid ventricular rate at [facility] admitted to the ICU overnight started [...] Appointment Date:02/13/2024 03:30:00 PM Scheduled Provider:GIRMA CORREA Location:[facility] Appointment Type: Wellness Annual w/Labs Diagnostic Tests Pending * Culture Respiratory with Gram Stain 01/31/24 * APTT 02/01/24 Future Scheduled Tests Laboratory* Basic Metabolic Panel 04/01/23 * Prostate Specific Antigen 02/07/24 * A1C Hemoglobin 02/07/24 * Lipid Profile 02/07/24 * Complete Metabolic Panel 02/07/24 [facility] 09-04-2024 History and physical note Date [...] evaluated On arrival to the ER at [place], patient was febrile 37.4, tachycardic 133, tachypneic 21, BP 90/76, was saturating 96% on room air. Labs done at [place] 01/30/2024 revealed pO2 51 on the gases [...] prophylactically got a dose of ceftriaxone at [place].We will continue with prophylactic ceftriaxone dose as [...] CINDY FLORES MD on 01/31/2024 08:06 AM [facility] [id number] Cardiology Consult note Date of Service 01/31/2024 [...] and gout who initially presented to [facility] on 01/30/2024 for shortness of breath [...] not tolerate Cardizem drip. Patient transferred to [facility] for further management. Placed on Levophed. [...] (s): 1.87 H Assessment/Plan A-fib with RVR ([id number] 2) Near syncopal episode Tachycardia mediated cardiomyopathy [...] Will continue to follow. Patient seen with curator of collections Dr. Hartley who agreed with plan. Please [...] MICHELLE HENRY MD on 01/31/2024 12:53 PM [facility] [id number] NoteATRIAL FIBRILLATION LAD, CONSIDER LEFT ANTERIOR FASCICULAR BLOCK LOW VOLTAGE, PRECORDIAL LEADS BORDERLINE T ABNORMALITIES, INFERIOR LEADS BORDERLINE PROLONGED QT INTERVAL Electronic Signature: MOY WATTS MD 02/01/2024 11:10:[address] [place] [address] 09-04-2024 Note. MICRO - Microbiology PROCEDURE: Blood [...] Locations *1: This test was performed at: [address], [address] [place], [place] 4677001-31-2024 Note. MICRO - Microbiology PROCEDURE: Blood Culture [...] Locations *1: This test was performed at: [address], [address] [place], [place] [address]-31-2024 History and physical note Date of Service [...] evaluated On arrival to the ER at [place], patient was febrile 37.4, tachycardic 133, tachypneic 21, BP 90/76, was saturating 96% on room air. Labs done at [place] 01/30/2024 revealed pO2 51 on the gases [...] prophylactically got a dose of ceftriaxone at [place].We will continue with prophylactic ceftriaxone dose as [...] CINDY FLORES MD on 01/31/2024 08:06 AM [facility] [id number] Note ORIGINAL EXAMINATION: CT OF THE HEAD [...] Sign Date: 01/30/2024 10:16:46 PM Ordering Provider: [facility]09-03-2024 Note ORIGINAL EXAMINATION: ONE XRAY [...] Sign Date: 01/30/2024 9:28:12 PM Ordering Provider: [facility]09-03-2024 NoteAtrial flutter Left anterior fascicular [...] get worse or if new symptoms appear. [phone] [employer]. [address] [place] [address], [place] [address]. All rights reserved. This information is not intended as a substitute for professional medical care. Always follow yourhealthcare professional's instructions. Follow Up Care 08/09/2023 21:02:01 With:GIRMA CORREA Address: [address] [place] [address]- [phone] Business (1) When:5-7 days Comments:Use warm compresses, Tylenol as discussed, return if any worsening or concerning symptoms. Follow-up closely with your doctor. [facility] 03-13-2024 Note Discharge Instructions Thank you for allowing [facility] to assist you with your healthcare needs. [...] Follow-up closely with your doctor. Where: [place] [address] [phone] Business (1) Allergies NKA Medications Please ask [...] get worse or if new symptoms appear. 5813-4745 [employer]. [address] [place] [address], [place] [address]. All rights reserved. This information is not intended as a substitute for professional medical care. Always follow yourhealthcare professional's instructions. Additional Information VACCINATE! IT SAVES LIVES! Members of the community who have not yet received the COVID-19 vaccine and would like to receive it can visit one of [facility] vaccine clinics. There are many vaccine clinic locations within the [facility]. For locations and available times, please visit www.gettheshot.coronavirus.[place].gov/. It is important to note that some COVID mobile vaccine clinics are held outdoors and may be canceled in rainy or stormy conditions. To learn more about pediatric vaccinations (ages 5-11), we invite you to visit the [facility] webpage. https://www.S[employer]urCells.org/pages/6978-Kdpxv-Zvhovmvafwv-Tsrosiqmxi-Zbior-Ofl stions.htmlTo learn more about the COVID-19 vaccine, we invite you to visit the CDC website for a list of frequently asked questions. https://www.cdc.gov/coronavirus/2019-ncov/vaccines/faq.html [facility] Patient Portal Access Instructions: Stay connected with your healthcare team and access your personal medical information anytime with the [employer] Patient Portal. If you would like a full copy of your medical records please contact the [facility] Medical Records Department Monday through Monday between 8a.m. and 4:30p.m. Please follow the directions below to access the portal: 1.Access the email account you provided upon registration to the [facility].2.Look for an invitation email from [facility].3.Open the email and access the invitation link: Accept Invitation to [employer]4.Fill in the required orr to create your account. Sign into [email or web address] with your username and password that you [...] you will allow to register on the [employer] Patient Portal for access to your information. You can also access the [employer] Patient Portal on the [employer] frida. Simply click on "Health Records" under "HealthData" and then click on the [employer]ES[employer] logo. HOW TO SAFELY DISPOSE OF PRESCRIPTION [...] Call your local pharmacy or go to http://[employer].Petpace/3W9Oz3n to find one close to you.3.Make use of household items: Use cat litter or old coffee grounds to dispose medications if other options arenot available. Mix your drugs with these household products, seal them in an airtight container andthrow it into the garbage. Call [facility]: [phone] to be sure your drugs can be [...] aware that I should contact my doctor. Patient/Telecommunications Manager Signature: Date/Time: Relationship to Patient: Witness Name/Signature: [...] exposed to secondhand smoke. You may use emhb-dvd-jolqwao medicine to control fever or pain, unless [...] loosen secretions in the nose and lungs. Nmol-zpx-btuahgz cough, cold, and sore-throat medicines will not [...] shortness of breath, or pain with breathing [phone] [employer]. [address] [place] [address], [place] [address]. All rights reserved. This information is not intended as a substitute for professional medical care. Always follow yourhealthcare professional's instructions. Follow Up Care 06/13/2023 00:01:18 With:GIRMA CORREA Address: [address] [place] [address]- [phone] Business (1) When:3-7 days Comments:Schedule appointment for [...] Note Discharge Instructions Thank you for allowing [facility] to assist you with your healthcare needs. [...] ED if symptoms worsen. Where: [place] [address] [phone] Business (1) Allergies NKA Medications Please ask [...] exposed to secondhand smoke. You may use hyqh-fym-kyytmyw medicine to control fever or pain, unless [...] loosen secretions in the nose and lungs. Pffw-obl-coiwxan cough, cold, and sore-throat medicines will not [...] shortness of breath, or pain with breathing [phone] [employer]. [address] [place] [address]. All rights reserved. This information is not intended as a substitute for professional medical care. Always follow yourhealthcare professional's instructions. Additional Information VACCINATE! IT SAVES LIVES! Members of the community who have not yet received the COVID-19 vaccine and would like to receive it can visit one of [facility] vaccine clinics. There are many vaccine clinic locations within the [facility]. For locations and available times, please visit www.gettheshot.coronavirus.[place].gov/. It is important to note that some COVID mobile vaccine clinics are held outdoors and may be canceled in rainy or stormy conditions. To learn more about pediatric vaccinations (ages 5-11), we invite you to visit the [facility] webpage. https://www.[facility].org/pages/8959-Hbvsk-Ylighzhqdmk-Xcihfjwkhg-Ossre-Srt stions.htmlTo learn more about the COVID-19 vaccine, we invite you to visit the CDC website for a list of frequently asked questions. https://www.cdc.gov/coronavirus/2019-ncov/vaccines/faq.html [facility] Patient Portal Access Instructions: Stay connected with your healthcare team and access your personal medical information anytime with the [facility] Patient Portal. If you would like a full copy of your medical records please contact the [facility] Medical Records Department Monday through Monday between 8a.m. and 4:30p.m. Please follow the directions below to access the portal: 1.Access the email account you provided upon registration to the [facility].2.Look for an invitation email from [facility].3.Open the email and access the invitation link: Accept Invitation to [facility]4.Fill in the required orr to create your [...] you will allow to register on the [facility] Patient Portal for access to your information. You can also access the [employer] Patient Portal on the [employer]. Simply click on "Health Records" under "HealthData" [...] Call your local pharmacy or go to http://[employer].Petpace/8Z4Zq7i to find one close to you.3.Make use of household items: Use cat litter or old coffee grounds to dispose medications if other options arenot available. Mix your drugs with these household products, seal them in an airtight container andthrow it into the garbage. Call [facility]: [phone] to be sure your drugs can be [...] aware that I should contact my doctor. Patient/Telecommunications Manager Signature: Date/Time: Relationship to Patient: Witness Name/Signature: [...] Date: 06/13/2023 12:39:50 AM Ordering Provider: [facility]01-12-2024 Hospital Discharge instructions Patient Education 06/09/2023 20:03:33 Atrial Fibrillation, Qbfr-jd-Pzlj Atrial Fibrillation Atrial fibrillation is a type [...] Follow these instructions at home: Medicines Take pjku-clb-uaffqzy and prescription medicines only as told by [...] 02/21/2009 Document Revised: 07/19/2018 Document Reviewed: 07/06/2018 Specialist [employer] Global Patient Education 2020 [employer]. Follow Up Care 06/06/2023 16:24:50 With:GIRMA CORREA Address: [address] [place] [address]- [phone] When: Unknown Comments:PLEASE CALL THIS OFFICE TO SCHEDULE A HOSPITAL FOLLOW UP APPOINTMENT With:MOY WATTS MD Address: [address] [place] [address] [address] [place], [place] [address]- [phone] When:07/17/2023 15:15:00 Comments:THIS APPOINTMENT WILL BE WITH ZHOU ESPINOSA CNP [facility] 01-12-2024 Note Discharge Instructions Thank you for allowing [facility] to assist you with your healthcare needs. The following is importantdischarge information regarding your hospital visit. Your Care Team GIRMA CORREA Your Diagnosis Shortness of breath What to do next Scheduled Follow-Up Appointments Appointment Type When With Where Contact InformationPC OV 06/20/2023 02:30 PM EST GIRMA CORREA [facility] 07/17/2023 03:15 PM EST ZHOU ESPINOSA [facility] Follow Up Appointments Follow Up with MOY WATTS MD When 07/17/2023 03:15 PM EST Why: THIS APPOINTMENT WILL BE WITH ZHOU ESPINOSA CNP Where: [address] [place] [address] [address] [place], [place] [address]- [phone] Follow Up with GIRMA CORREA When Why: PLEASE CALL THIS OFFICE TO SCHEDULE A HOSPITAL FOLLOW UP APPOINTMENT Where: [address] [facility] [place] [address]- [phone] The Following Activity and Diet Have Been [...] day Refills: 2 Pickup at [id number] Changed FLUoxetine (FLUoxetine 10 mg oral capsule) 1 cap by mouth Once a day Pickup at [facility] #[id number] Unchanged allopurinol (allopurinol 100 mg oral tablet) [...] Daily at bedtime Pharmacy Information [facility] #[id number]: [address] [place], [place] [id number] [phone] Please take this list to your next [...] may report side effects to FDA at 3-069-TKI-2095. What other drugs will affect dofetilide? Other drugs may interact with dofetilide, including prescription and nhno-mmm-exvywrt medicines, vitamins, and herbal products. Tell each [...] to ensure that the information provided by [employer]. ('[employer]') is accurate, up-to-date, and complete, but no guarantee is made to that effect. Drug information contained herein may be time sensitive. [employer] information has been compiled for use by healthcare practitioners and consumers in the [place] and therefore [employer] does not warrant that uses outside of the [place] are appropriate, unless specifically indicated otherwise. [employer] drug information does not endorse drugs, diagnose patients or recommend therapy. [employer] drug information isan informational resource designed to [...] effective or appropriate for any given patient. [employer] does not assume any responsibility for any aspect of healthcare administered with the aid of information [employer] provides. The information contained herein is not intended to cover all possible uses, directions, precautions, warnings, drug interactions, allergic reactions, or adverse effects. If you have questions about the drugs you are taking, check with your doctor, nurse or pharmacist. Copyright 8184-4542 [employer]. Version: 4.01. Revision Date: 09/09/2015. Education Materials [...] Follow these instructions at home: Medicines Take pgsx-ulq-tzzhzwh and prescription medicines only as told by [...] 02/21/2009 Document Revised: 07/19/2018 Document Reviewed: 07/06/2018 Specialist Resources Global Patient Education 2020 [employer]. Additional Information VACCINATE! IT SAVES LIVES! Members of the community who have not yet received the COVID-19 vaccine and would like to receive it can visit one of [facility] vaccine clinics. There are many vaccine clinic locations within the [facility]. For locations and available times, please visit https://gettheshot.coronavirus.[place].gov/. It is important to note that some COVID mobile vaccine clinics are held outdoors and may be canceled in rainy or stormy conditions. To learn more about pediatric vaccinations (ages 5-11), we invite you to visit the [facility] webpage. https://www.[facility].org/pages/7298-Osgia-Grxcfmkwnvv-Pxfqkxispt-Mfdou-Jaz stions.htmlTo learn more about the COVID-19 vaccine, we invite you to visit the CDC website for a list of frequently asked questions.https://www.cdc.gov/coronavirus/2019-ncov/vaccines/faq.html [employer] Patient Portal Access Instructions: Stay connected with your healthcare team and access your personal medical information anytime with the [employer] Patient Portal. Please follow the directions below to create your [employer] account: 1.Access the email account you provided upon registration to the hospital/physician office.2.Look for an invitation email from [facility].3.Open the email and access the invitation link: AcceptInvitation to [facility].4.Fill in the required orr to create your account. To access your account, visit [email or web address]. Click the blue button labeled "Access Patient [...] who you will allowto register on the [facility] Patient Portal for access to your information. You can also access the [facility] [employer] Patient Portal on the [facility] frida. Simply click on "Patient Portal" and then log into your account. If you would like to receive a full copy of your medical records, please contact the [facility] Medical Records Department by calling [phone], Monday through Monday between 8 a.m. and [...] Call your local pharmacy or go to http://[employer].Petpace/0E9Vq2e to find one close to you.3.Make use of household items: Use cat litter or old coffee grounds to dispose medications if other options arenot available. Mix your drugs with these household products, seal them in an airtight container andthrow it into the garbage. Call [facility]: [phone] to be sure your drugs can be [...] COPY. Signatures Patient Education Materials Atrial Fibrillation, Sgfu-de-Jqat Medication Leaflets Tiroman My discharge plan and instructions have been reviewed and explained to me and I,CARLOS ALBERTO HOROWITZ understand my current condition and have read and understand these discharge instructions. I have received awritten copy of the plan/instructions. If I have questions, I am aware that I should contact my doctor. Patient/Telecommunications Manager Signature: Date/Time: Relationship to Patient: Witness Name/Signature: Date/Time: [id number] Discharge summary Date of Service 06/09/23 Discharge Diagnosis Other persistent atrial fibrillation (I48.19 - ICD-10-CM) Encounter for therapeutic drug level monitoring (Z51.81 - ICD-10-CM) Morbid (severe) obesity due to excess calories (E66.01 - ICD-10-CM) Hypertensive heart disease without heart failure (I11.9 - ICD-10-CM) Gastro-esophageal reflux disease without esophagitis (K21.9 - ICD-10-CM) long term (current) use of anticoagulants (Z79.01 - ICD-10-CM) Shortness of breath (R06.02 - ICD-10-CM) Additional Orders: Ordered: Communication Order (continuous),06/09/23 12:44:00 EST, ok to DC home after 5th dose of tikosyn this evening as long as QT is reviewed by electronic controls repairer supervisor fellow, Constant order Ordered: Discharge,06/09/23 12:44:00 EST, [...] qDay, # 30 cap(s), 2 Refill(s), Pharmacy: [facility] #[id number], 176, cm, 06/07/23 13:36:00 EST, Height, kg, 06/07/23 13:36:00 EST, Dosing Weight Ordered: Tikosyn 250 mcg oral capsule,Dose : 250 mcg = 1 cap(s), Oral, BID, # 60 cap(s), 2 Refill(s), Pharmacy: [facility] #[id number], 176, cm, 06/07/23 13:36:00 EST, Height, kg, [...] When 07/07/2023 01:00 PM EST Where: [address] [facility] [address] [place] [address]- [phone] Follow Up with GIRMA CORREA APRN-[facility] When Why: PLEASE CALL THIS OFFICE TO SCHEDULE A HOSPITAL FOLLOW UP APPOINTMENT Where: [address] [place] [address]- [phone] Follow Up Appointments No qualifying data available. Follow Up Labs/Studies Discharge Labs No Follow-up Labs Discharge Studies No Follow-up Studies Discharge Diet Discharge Diet - Ordered -- Type of Diet: Cardiac, Sodium limit: 2 gm, 06/09/23 12:44:00 EST Discharge Activity No qualifying data available. Condition on Discharge stable Discharge Disposition home Digitally Signed by AMELIA RENAE MD on 06/09/2023 12:53 PM [facility] [id number] Discharge summary Date of Service 06/09/23 Discharge Diagnosis Other persistent atrial fibrillation (I48.19 - ICD-10-CM) Encounter for therapeutic drug level monitoring (Z51.81 - ICD-10-CM) Morbid (severe) obesity due to excess calories (E66.01 - ICD-10-CM) Hypertensive heart disease without heart failure (I11.9 - ICD-10-CM) Gastro-esophageal reflux disease without esophagitis (K21.9 - ICD-10-CM) long term (current) use of anticoagulants (Z79.01 - ICD-10-CM) Shortness of breath (R06.02 - ICD-10-CM) Additional Orders: Ordered: Communication Order (continuous),06/09/23 12:44:00 EST, ok to DC home after 5th dose of tikosyn this evening as long as QT is reviewed by electronic controls repairer supervisor fellow, Constant order Ordered: Discharge,06/09/23 12:44:00 EST, [...] qDay, # 30 cap(s), 2 Refill(s), Pharmacy: [facility] #[id number], 176, cm, 06/07/23 13:36:00 EST, Height, kg, 06/07/23 13:36:00 EST, Dosing Weight Ordered: Tikosyn 250 mcg oral capsule,Dose : 250 mcg = 1 cap(s), Oral, BID, # 60 cap(s), 2 Refill(s), Pharmacy: [facility] #[id number], 176, cm, 06/07/23 13:36:00 EST, Height, kg, [...] When 07/07/2023 01:00 PM EST Where: [address] [facility]. [address] [place] [address]- [phone] Follow Up with GIRMA CORREA When Why: PLEASE CALL THIS OFFICE TO SCHEDULE A HOSPITAL FOLLOW UP APPOINTMENT Where: [address] [place] [address]- [phone] Follow Up Appointments No qualifying data available. Follow Up Labs/Studies Discharge Labs No Follow-up Labs Discharge Studies No Follow-up Studies Discharge Diet Discharge Diet - Ordered -- Type of Diet: Cardiac, Sodium limit: 2 gm, 06/09/23 12:44:00 EST Discharge Activity No qualifying data available. Condition on Discharge stable Discharge Disposition home Digitally Signed by AMELIA RENAE MD on 06/09/2023 12:53 PM [id number] NoteSINUS RHYTHM LEFT AXIS DEVIATION LOW VOLTAGE, PRECORDIAL LEADS PROLONGED QT INTERVAL POOR R-WAVE PROGRESSION Electronic Signature: SADE STRAUSS MD 06/09/2023 09:53:23[facility] 01-11-2024 Cardiology Progress note Date of [...] AMELIA RENAE MD on 06/08/2023 03:03 PM [facility] [id number] Cardiology Progress note Date of Service 06/08/23 [...] AMELIA RENAE MD on 06/08/2023 03:03 PM [facility] [id number] NoteSINUS RHYTHM LAD, CONSIDER LEFT ANTERIOR FASCICULAR BLOCK LOW VOLTAGE, PRECORDIAL LEADS BORDERLINE PROLONGED QT INTERVAL Poor R wave progression Electronic Signature: SADE STRAUSS MD 06/09/2023 09:53:37[facility] 01-10-2024 NoteSINUS RHYTHM BORDERLINE IVCD WITH LAD LOW VOLTAGE, PRECORDIAL LEADS CONSIDER ANTERIOR INFARCT Electronic Signature: SADE STRAUSS MD 06/08/2023 09:48:12[facility] 01-10-2024 History and physical note Date [...] 107 ms, QT interval approximately 450 ms. WI interval 184 ms. Renal function, electrolytes pending. [...] AMELIA RENAE MD on 06/07/2023 04:29 PM [facility] [id number] NoteSINUS RHYTHM LAD, CONSIDER LEFT ANTERIOR FASCICULAR BLOCK LOW VOLTAGE, PRECORDIAL LEADS Electronic Signature: SADE STRAUSS MD 06/08/2023 09:47:58[facility] 01-10-2024 History and physical note Date [...] 107 ms, QT interval approximately 450 ms. WI interval 184 ms. Renal function, electrolytes pending. [...] AMELIA RENAE MD on 06/07/2023 04:29 PM [facility] [id number] Evaluation + Plan noteExtracted from: Title:History and [...] Date:07/17/2023 03:15:00 PM Scheduled Provider:ZHOU ESPINOSA Location:[facility] Appointment Type:CV OV Future Scheduled Tests Laboratory* Basic Metabolic Panel 04/01/23 * A1C Hemoglobin 06/09/23 * Lipid Profile 06/09/23 * Complete Metabolic Panel 06/09/23 [facility] 01-10-2024 NoteSINUS RHYTHM MARKEDLY POSTERIOR QRS AXIS LOW VOLTAGE, PRECORDIAL LEADS BORDERLINE PROLONGED QT INTERVAL Electronic Signature: SADE STRAUSS MD 06/08/2023 09:47:38[facility] 12-08-2023 Hospital Discharge instructions Patient Education [...] in vomit, stools (black or red color) 8260-5303 [employer]. [address] [place] [address], [place] [address]. All rights reserved. This information is not [...] Blood in your stool or urine [employer]. [address] [place] [address], [place] [address]. All rights reserved. This information is not [...] will help ease pain. You may use kmxt-nou-cabitxm pain medicine such as acetaminophen or ibuprofen [...] or lasts more than an hour [employer]. [address] [place] [address], [place] [address]. All rights reserved. This information is not intended as a substitute for professional medical care. Always follow yourhealthcare professional's instructions. Follow Up Care 05/05/2023 17:11:14 With:GIRMA CORREA Address: [address] [place] [address]- [phone] Business (1) When:5-7 days Comments:Follow-up as needed if symptoms or not improving.Limit activity as tolerated.Ice/cold compresses topainful areas.Use Tylenol, Advil or Aleve for pain as needed.Use Clovis as prescribed for severe pain as needed.Take 10 deep breaths on the incentive stridor every hour while awake for the next week as advised.Return to the ED if symptoms worsen. [facility] 12-08-2023 Note Discharge Instructions Thank you for allowing [facility] to assist you with your healthcare needs. [...] or Aleve for pain as needed. Use Clovis as prescribed for severe pain as needed. Take 10 deep breaths on the incentive stridor every hour while awake for the next week as advised. Return to the ED if symptoms worsen. Where: [place] [address]- [phone] Business (1) Allergies NKA Medications Please ask your primary doctor or pharmacist before taking any other medication not listed, including over the counter drugs, herbal medications, vitamins and or supplements as they may interact withyour home medications. What How Much When Why Instructions Last Dose New acetaminophen-hydrocodone (Clovis 325- 5 mg oral tablet) 1 tab(s) [...] cancer screening As directed by provider at [facility]. Unchanged rivaroxaban (Xarelto 20 mg oral [...] may report side effects to FDA at [phone]. What other drugs will affect acetaminophen and [...] affect acetaminophen and hydrocodone, including prescription and lbog-sfw-rycvtmx medicines, vitamins, and herbal products. Not all [...] to ensure that the information provided by [employer]. ('Multum') is accurate, up-to-date, and complete, but no guarantee is made to that effect. Drug information contained herein may be time sensitive. [employer] information has been compiled for use by healthcare practitioners and consumers in the [place] and therefore [employer] does not warrant that uses outside of the [place] are appropriate, unless specifically indicated otherwise. [employer] drug information does not endorse drugs, diagnose patients or recommend therapy. [employer] drug information isan informational resource designed to [...] effective or appropriate for any given patient. [employer] does not assume any responsibility for any aspect of healthcare administered with the aid of information [employer] provides. The information contained herein is not intended to cover all possible uses, directions, precautions, warnings, drug interactions, allergic reactions, or adverse effects. If you have questions about the drugs you are taking, check with your doctor, nurse or pharmacist. Copyright 1279-5902 [employer]. Version: 19.. Revision Date: 01/16/2023. Education Materials [...] in vomit, stools (black or red color) 5282-2397 [employer]. [address] [place] [address]. All rights reserved. This information is not [...] fainting Blood in your stool or urine 0508-8210 [employer]. [address] [place] [address]. All rights reserved. This information is not [...] will help ease pain. You may use yhjs-iid-snxkcxz pain medicine such as acetaminophen or ibuprofen [...] suddenly or lasts more than an hour 3050-9366 [employer]. [address] [place] [address], [place] [address]. All rights reserved. This information is not intended as a substitute for professional medical care. Always follow yourhealthcare professional's instructions. Additional Information VACCINATE! IT SAVES LIVES! Members of the community who have not yet received the COVID-19 vaccine and would like to receive it can visit one of [facility] vaccine clinics. There are many vaccine clinic locations within the [facility]. For locations and available times, please visit www.[email or web address].[place].gov/. It is important to note that some COVID mobile vaccine clinics are held outdoors and may be canceled in rainy or stormy conditions. To learn more about pediatric vaccinations (ages 5-11), we invite you to visit the [facility] webpage. https://www.[facility].org/pages/5563-Fenhm-Hmflmogtbsy-Opuyndptoz-Xromb-Wog stions.htmlTo learn more about the COVID-19 vaccine, we invite you to visit the CDC website for a list of frequently asked questions. https://www.cdc.gov/coronavirus/2019-ncov/vaccines/faq.html [facility] [employer] Patient Portal Access Instructions: Stay connected with your healthcare team and access your personal medical information anytime with the [facility] Patient Portal. If you would like a full copy of your medical records please contact the [facility] Medical Records Department Monday through Monday between 8a.m. and 4:30p.m. Please follow the directions below to access the portal: 1.Access the email account you provided upon registration to the hospital.2.Look for an invitation email from [facility].3.Open the email and access the invitation link: Accept Invitation to [facility]4.Fill in the required orr to create your account. Sign into [email or web address] with your username and password that you [...] you will allow to register on the [facility] [employer] Patient Portal for access to your information. You can also access the [employer] Patient Portal on the [employer] frida. Simply click on "Health Records" under "HealthSkigit" and then click on the Larry logo. [...] Call your local pharmacy or go to http://Nubian Kinks Natural Haircare.Petpace/[email or web address] to find one close to you.3.Make use of household items: Use cat litter or old coffee grounds to dispose medications if other options arenot available. Mix your drugs with these household products, seal them in an airtight container andthrow it into the garbage. Call [facility]: [phone] to be sure your drugs can be [...] aware that I should contact my doctor. Patient/Telecommunications Manager Signature: Date/Time: Relationship to Patient: Witness Name/Signature: [...] Date: 05/05/2023 9:08:30 PM Ordering Provider: [facility]12-08-2023 Note ORIGINAL EXAMINATION: ONE XRAY VIEW [...] Date: 05/05/2023 9:17:04 PM Ordering Provider: [facility]11-06-2023 Note * Exam Date Time [...] Document Reviewed: 05/16/2014 ExitCare Patient Information 2015 [employer], [employer]. This information is not intended to replace [...] before eating solid foods. General instructions Take agpf-elq-orhvlzb and prescription medicines only as told by [...] 09/04/2016 Document Revised: 08/13/2018 Document Reviewed: 09/04/2016 Specialist Resources Global Patient Education 2020 Specialist [employer] Global Inc. Follow Up Care 12/07/2022 09:52:07 With:ZHOU ESPINOSA APRN-BUILDING PRINCIPAL Address: [address] [facility] [address] [facility] [place] [place] [address]- [phone] When: Unknown Comments:Follow-up as scheduled [facility] 07-28-2023 Note Discharge Instructions Thank you for allowing [facility] to assist you with your healthcare needs. The following is importantdischarge information regarding your hospital visit. Your Care Team GIRMA CORREA Your Diagnosis AF (atrial fibrillation) What to do next Scheduled Follow-Up Appointments Appointment Type [facility] 02:30 PM EDT GIRMA CORREA [facility] Follow Up Appointments Follow Up with ZHOU ESPINOSA When Why: Follow-up as scheduled Where: [address] [facility] [address] [facility] [place] [address]- [phone] Allergies NKA Medications Please ask your primary doctor or pharmacist before taking any other medication not listed, including over the counter drugs, herbal medications, vitamins and or supplements as they may interact withyour home medications. What How Much When Instructions Last Dose New losartan (losartan 100 mg oral tablet) 1 tab(s) by mouth Once a day Refills: 6 Pickup at [facility] #[id number] Changed metoprolol (Toprol-XL 50 mg oral tablet, extended release) 1 tab(s) by mouth Two (2) times a day Pickup at [facility] #[id number] Unchanged allopurinol (allopurinol 100 mg oral tablet) [...] Duration: 14 Days Pharmacy Information [id number]: [address] [place], [place] [phone] What How Much When Comments Stop Taking [...] Document Reviewed: 05/16/2014 ExitCare Patient Information 2015 Private Practice. This information is not intended to replace [...] before eating solid foods. General instructions Take wtel-rat-lkvdqns and prescription medicines only as told by [...] Document Reviewed: 09/04/2016 Elsevier Patient Education 2020 Elsevier Inc. Additional Information VACCINATE! IT SAVES LIVES! Members of the community who have not yet received the COVID-19 vaccine and would like to receive it can visit one of [facility] vaccine clinics. There are many vaccine clinic locations within the [facility]. For locations and available times, please visit [email or web address]/. It is important to note that some COVID mobile vaccine clinics are held outdoors and may be canceled in rainy or stormy conditions. To learn more about pediatric vaccinations (ages 5-11), we invite you to visit the [employer] webpage. https://www.S[employer]urCells.org/pages/6646-Glvwk-Uwxbbdavdjn-Hljvifscih-Hixzj-Nxh stions.htmlTo learn more about the COVID-19 vaccine, we invite you to visit the CDC website for a list of frequently asked questions.https://www.cdc.gov/coronavirus/2019-ncov/vaccines/faq.html [employer] Patient Portal Access Instructions: Stay connected with your healthcare team and access your personal medical information anytime with the [employer] Patient Portal. Please follow the directions below to create your [employer] account: 1.Access the email account you provided upon registration to the hospital/physician office.2.Look for an invitation email from [facility].3.Open the email and access the invitation link: AcceptInvitation to [employer].4.Fill in the required orr to create your account. To access your account, visit [email or web address]. Click the blue button labeled "Access Patient [...] who you will allowto register on the [facility] OneChart Patient Portal for access to your information. You can also access the [facility] Portal on the [facility] Anywhere frida. Simply click on "Patient Portal" and then log into your account. If you would like to receive a full copy of your medical records, please contact the [facility] Medical Records Department by calling [phone], Monday through Monday between 8 a.m. and [...] Call your local pharmacy or go to [email or web address] to find one close to you.3.Make use of household items: Use cat litter or old coffee grounds to dispose medications if other options arenot available. Mix your drugs with these household products, seal them in an airtight container andthrow it into the garbage. Call [facility]: [phone] to be sure your drugs can be [...] aware that I should contact my doctor. Patient/Telecommunications Manager Signature: Date/Time: Relationship to Patient: Witness Name/Signature: Date/Time: [facility]07-28-2023 Anesthesiology Consult note Patient: CARLOS ALBERTO HOROWITZ Age: 52 years Sex: Male : 1970 Associated Diagnoses: None Author: BRAULIO WRIGHT APRN-HOG SAWYER Assessment Postanesthesia assessment Vitals: Vital signs from [...] [facility]2023 Anesthesiology Consult note Patient: CARLOS ALBERTO HOROWITZ [...] Problem list: Medical Anxiety / SNOMED CT 16903581 / Confirmed Atopic dermatitis / SNOMED CT 86783839 / Confirmed BMI 45.0-49.9, adult / SNOMED CT 5831202578 / Confirmed Diabetes mellitus / SNOMED CT 115826540 / Confirmed Hypertension / SNOMED CT 6566742505 / Confirmed Insomnia / SNOMED CT 261959933 / Confirmed Morbid obesity / SNOMED CT 543916111 / Confirmed Chewing tobacco nicotine dependence / SNOMED CT 41298072 / Confirmed Obstructive sleep apnea / SNOMED CT 551147554 / Confirmed Screening for ischemic heart disease / SNOMED CT 531806445 / Confirmed Persistent atrial fibrillation / SNOMED CT 5670492323 / Confirmed Prediabetes / SNOMED CT 9752704103 / Confirmed, Active Problems (16) Anxiety Atopic [...] History: History is unknown. Procedure history: Elbow ([id number]). Comments: 07/11/2022 8:26 SHAHEEN Nunez bursitis - [...] patch - 12/13/2022 14:44 - Naresh Mcgregor BUSINESS SOLUTIONS ANALYST Nutrition/Health 12/23/2022 Caffeine intake amount: pop 3 daily . Physical Examination Vital Signs 12/23/2022 6:34 EDT Temperature Temporal Artery 35.3 DegC Peripheral Pulse Rate 85 bpm Respiratory Rate 20 br/min Systolic Blood Pressure Non-Invasive 103 mmHg Diastolic Blood Pressure Non-Invasive 76 mmHg Vital Signs(last 24 hrs) Last Charted Resp Rate 20 br/min (DEC 23 06:34) JDP567 mmHg (DEC 23 06:34) DBP76 mmHg (DEC 23 06:34) Measurements from flowsheet : Measurements 12/23/2022 6:37 EDT Height 175.3 cm [place] Body Weight 70.74 kg 12/23/2022 6:34 EDT Height 175.3 cm Admission Weight 144 kg [place] Body Weight 70.74 kg Admission Body Mass [...] Surgeon SN - CAt - Role Performed Marketing Instructor 1 SN - CAt - Role Performed HOG SAWYER 12/23/2022 6:49 EDT Wrist Left 12/23/2022 20 [...] Person #1 We May Share YAW OSPINA [phone] Designated Person #1 Relationship Sibling Height 175.3 cm [place] Body Weight 70.74 kg Status N/A Sensory [...] evident Teaching Method Explanation Preferred Spoken Language Croatian Preferred Written Language Croatian Information Given by Patient Patient's Current Physicians Patient's Current Physicians Discharge To, Anticipated Home independently Prev Test Positive/Diagnosis w/COVID-19 No Current Quarantine/Isolated any Illness No Any Contact with Sick Animals/Birds No Traveled Anywhere in Last 30 Days No N/A Personal Devices, Patient Valuables None Admission Note-Nursing Procedure/Therapy Intake 12/23/2022 6:34 EDT Height 175.3 cm Admission Weight 144 kg [place] Body Weight 70.74 kg Admission Body Mass [...] Ordered (In Progress) . Assessment and Plan [place] Society of Anesthesiologists (ASA) physical status classification: [...] Swelling, pain or redness in one leg 7195-3525 [employer]. [address] [place] [address]. All rights reserved. This information is not [...] very fast heart rate Loss of consciousness 8430-7385 [employer]. [address] [place] [address], [place] [address]. All rights reserved. This information is not intended as a substitute for professional medical care. Always follow yourhealthcare professional's instructions. Follow Up Care 10/27/2022 05:02:35 With:GIRMA CORREA Address: [address] [facility] [place] [address]- [phone] Business (1) When:2-4 days Comments:Follow close with your doctor, continue medications, return if any worsening or concerning symptoms. [facility] Note Discharge Instructions Thank you for allowing [facility] to assist you with your healthcare needs. [...] worsening or concerning symptoms. Where: [address] [facility] [place] [address]- [phone] Business (1) Allergies NKA Medications Please ask [...] pain or redness in one leg [employer]. [address] [place] [address]. All rights reserved. This information is not [...] fast heart rate Loss of consciousness [employer]. [address] [place] [address]. All rights reserved. This information is not intended as a substitute for professional medical care. Always follow yourhealthcare professional's instructions. Additional Information VACCINATE! IT SAVES LIVES! Members of the community who have not yet received the COVID-19 vaccine and would like to receive it can visit one of [facility] vaccine clinics. There are many vaccine clinic locations within the [facility]. For locations and available times, please visit www.[email or web address].[place].gov/. It is important to note that some COVID mobile vaccine clinics are held outdoors and may be canceled in rainy or stormy conditions. To learn more about pediatric vaccinations (ages 5-11), we invite you to visit the [facility] webpage. https://www.[facility].org/pages/2343-Cilwu-Xnnoiojizoy-Ypqozofcgj-Awbvq-Zsi stions.htmlTo learn more about the COVID-19 vaccine, we invite you to visit the CDC website for a list of frequently asked questions. https://www.cdc.gov/coronavirus/2019-ncov/vaccines/faq.html [facility] [employer] Patient Portal Access Instructions: Stay connected with your healthcare team and access your personal medical information anytime with the [facility] Patient Portal. If you would like a full copy of your medical records please contact the [facility] Medical Records Department Monday through Monday between 8a.m. and 4:30p.m. Please follow the directions below to access the portal: 1.Access the email account you provided upon registration to the hospital.2.Look for an invitation email from [facility].3.Open the email and access the invitation link: Accept Invitation to [facility] [employer]4.Fill in the required orr to create your account. Sign into [email or web address] with your username and password that you [...] you will allow to register on the [facility] Patient Portal for access to your information. You can also access the [facility] Patient Portal on the Dinner [employer]. Simply click on "Health Records" under "HealthData" [...] Call your local pharmacy or go to http://Nub[employer] K[employer] Haircare.Petpace/[email or web address] to find one close to you.3.Make use of household items: Use cat litter or old coffee grounds to dispose medications if other options arenot available. Mix your drugs with these household products, seal them in an airtight container andthrow it into the garbage. Call [facility]: [phone] to be sure your drugs can be [...] aware that I should contact my doctor. Patient/Telecommunications Manager Signature: Date/Time: Relationship to Patient: Witness Name/Signature: [...] Sign Date: 10/27/2022 6:14:45 AM Ordering Provider: [facility]05-30-2023 Hospital Discharge instructions Patient Education [...] your body to your neck and face. 6894-8870 [employer]. [address] [place] [address]. All rights reserved. This information is not [...] vision Extreme drowsiness, confusion, dizziness, or fainting 5917-9764 [employer]. [address] [place] [address], [place] [address]. All rights reserved. This information is not [...] Swelling, pain or redness in one leg 0137-7797 [employer]. [address] [place] [address]. All rights reserved. This information is not [...] veins, fluid leaks out into the tissues. [place] then causes that fluid to move to [...] away Feeling much more tired than usual 8790-8014 [employer]. [address] [place] [address]. All rights reserved. This information is not intended as a substitute for professional medical care. Always follow yourhealthcare professional's instructions. Follow Up Care 10/24/2022 23:09:33 With:Call Physician Referral Address:Unknown When:2-4 days Comments:Call for referral to establish a primary care doctor you can see on a regular basis. With:SADE STRAUSS Address: [address] [facility] [address] [facility] [place] [address] [phone] Business (1) When:2-4 days Comments:Schedule an appointment to establish a curator of collections you can see on a regular basis.Double your doseof Lasix from 20 mg once a day to 20 mg twice a day.Continue all other routine medications including the ones you were recently prescribed from [place].Use potassium supplement and sleep aid (trazodone) as prescribed.Return to the ED if symptoms worsen. [facility] 05-30-2023 Note Discharge Instructions Thank you for allowing [facility] to assist you with your healthcare needs. [...] Why: Schedule an appointment to establish a curator of collections you can see on a regular basis. Double your dose of Lasix from 20 mg once a day to 20 mg twice a day. Continue all other routine medications including the ones you were recently prescribed from [place]. Use potassium supplement and sleep aid (trazodone) as prescribed. Return to the ED if symptoms worsen. Where: [address] [facility] [place] [address] [facility] [place] [address]- [phone] Business (1) Allergies NKA Medications Please ask [...] may report side effects to FDA at 0-603-KOT-7563. What other drugs will affect potassium chloride? Tell your doctor about all your other medicines, especially: medicine to prevent organ transplant rejection; a diuretic or 'water pill'; or heart or blood pressure medication. This list is not complete. Other drugs may affect potassium chloride, including prescription and jpbt-pgp-fxsbzpw medicines, vitamins, and herbal products. Not all [...] to ensure that the information provided by [employer]. ('Multum') is accurate, up-to-date, and complete, but no guarantee is made to that effect. Drug information contained herein may be time sensitive. [employer] information has been compiled for use by healthcare practitioners and consumers in the [place] and therefore [employer] does not warrant that uses outside of the [place] are appropriate, unless specifically indicated otherwise. [employer] drug information does not endorse drugs, diagnose patients or recommend therapy. [employer] drug information isan informational resource designed to [...] effective or appropriate for any given patient. [employer] does not assume any responsibility for any aspect of healthcare administered with the aid of information [employer] provides. The information contained herein is not intended to cover all possible uses, directions, precautions, warnings, drug interactions, allergic reactions, or adverse effects. If you have questions about the drugs you are taking, check with your doctor, nurse or pharmacist. Copyright 8617-5437 [employer]. Version: 14.. Revision Date: 10/24/2019. trazodone (TRAZ [...] may report side effects to FDA at 2-676-QRK-5374. What other drugs will affect trazodone? Using trazodone with other drugs that make you drowsy can worsen this effect. Ask your doctor before using opioid medication, a sleeping pill, a muscle relaxer, or medicine for anxiety or seizures. Tell your doctor about all your current medicines. Many drugs can affect trazodone, especially: any other antidepressants; phenytoin; Pickens's wort; tramadol; a diuretic or 'water pill'; medicine to treat anxiety, mood disorders, or mental illness such as schizophrenia; a blood thinner--warfarin, Coumadin, Jantoven; or migraine headache medicine--sumatriptan, Imitrex, Maxalt, Treximet, and others. This list is not complete and many other drugs may affect trazodone. This includes prescription pusvvuu-tap-vgbgusl medicines, vitamins, and herbal products. Not all [...] to ensure that the information provided by [employer]. ('Multum') is accurate, up-to-date, and complete, but no guarantee is made to that effect. Drug information contained herein may be time sensitive. [employer] information has been compiled for use by healthcare practitioners and consumers in the [place] and therefore [employer] does not warrant that uses outside of the [place] are appropriate, unless specifically indicated otherwise. [employer]'s drug information does not endorse drugs, diagnose patients or recommend therapy. [employer] drug information isan informational resource designed to [...] effective or appropriate for any given patient. [facility] does not assume any responsibility for any aspect of healthcare administered with the aid of information [facility] provides. The information contained herein is not intended to cover all possible uses, directions, precautions, warnings, drug interactions, allergic reactions, or adverse effects. If you have questions about the drugs you are taking, check with your doctor, nurse or pharmacist. Copyright 9258-2221 [facility]anes[facility] [employer] [facility]. Version: 10.. Revision Date: 11/09/2020. Education Materials [...] your body to your neck and face. 6354-0623 [employer]. [address] [place] [address]. All rights reserved. This information is not [...] vision Extreme drowsiness, confusion, dizziness, or fainting 4332-2194 [employer]. [address] [place] [address], [place] [address]. All rights reserved. This information is not [...] Swelling, pain or redness in one leg 1785-5237 [employer]. [address] [place] [address]. All rights reserved. This information is not [...] veins, fluid leaks out into the tissues. [place] then causes that fluid to move to [...] away Feeling much more tired than usual 8368-0627 [employer]. [address] [place] [address]. All rights reserved. This information is not intended as a substitute for professional medical care. Always follow yourhealthcare professional's instructions. Additional Information VACCINATE! IT SAVES LIVES! Members of the community who have not yet received the COVID-19 vaccine and would like to receive it can visit one of [facility] vaccine clinics. There are many vaccine clinic locations within the [facility]. For locations and available times, please visit www.gettheshot.coronavirus.[place].gov/. It is important to note that some COVID mobile vaccine clinics are held outdoors and may be canceled in rainy or stormy conditions. To learn more about pediatric vaccinations (ages 5-11), we invite you to visit the [facility] webpage. https://www.[facility].org/pages/8093-Clcxg-Cxxcpaaqjcv-Bmdfnurxru-Bmxca-Gyk stions.htmlTo learn more about the COVID-19 vaccine, we invite you to visit the CDC website for a list of frequently asked questions. https://www.cdc.gov/coronavirus/2019-ncov/vaccines/faq.html [employer] Patient Portal Access Instructions: Stay connected with your healthcare team and access your personal medical information anytime with the [employer] Patient Portal. If you would like a full copy of your medical records please contact the [facility] Medical Records Department Monday through Monday between 8a.m. and 4:30p.m. Please follow the directions below to access the portal: 1.Access the email account you provided upon registration to the hospital.2.Look for an invitation email from [facility].3.Open the email and access the invitation link: Accept Invitation to [facility]4.Fill in the required orr to create your account. Sign into [email or web address] with your username and password that you [...] you will allow to register on the [employer] Patient Portal for access to your information. You can also access the [employer] Patient Portal on the [employer]. Simply click on "Health Records" under "HealthData" and then click on the [employer] logo. HOW TO SAFELY DISPOSE OF PRESCRIPTION [...] Call your local pharmacy or go to http://[employer].Petpace/[email or web address] to find one close to you.3.Make use of household items: Use cat litter or old coffee grounds to dispose medications if other options arenot available. Mix your drugs with these household products, seal them in an airtight container andthrow it into the garbage. Call [facility]: [phone] to be sure your drugs can be [...] aware that I should contact my doctor. Patient/Telecommunications Manager Signature: Date/Time: Relationship to Patient: Witness Name/Signature: Date/Time: [facility] [id number] Note ORIGINAL EXAMINATION: CTA OF THE CHEST [...] aortic dissection. Lungs/pleura: Small bilateral pleural effusions service line layer dependently. There is more fluid on [...] Date: 10/25/2022 1:09:48 AM Ordering Provider: DEMI [facility]05-30-2023 Note ORIGINAL EXAMINATION: CTA OF THE CHEST [...] aortic dissection. Lungs/pleura: Small bilateral pleural effusions service line layer dependently. There is more fluid on [...] Date: 10/25/2022 1:09:48 AM Ordering Provider: [facility]05-29-2023 Note ORIGINAL EXAMINATION: ONE XRAY VIEW [...] 10/24/2022 11:56:09 PM Ordering Provider: [facility]05-29-2023 Note ORIGINAL [...] Sign Date: 10/24/2022 11:56:09 PM Ordering Provider: [facility]05-28-[address] Sarath Kothari [facility] October 23, 2022 10:40am Note Date/Time October 23, 2022 6:48a m [facility] Medical Records Department [address] [place] [address] Emergency Department Summary 10/23/22 MR#: [id number] Acct: [id number] Name: CARLOS ALBERTO HOROWITZ Jr. Rep #:[id number] : 1970 52 From: Jameel Brown DO PCP: ZACARIAS HOYOS Status:REG ER [...] gets short of breath. Patient states his curator of collections is a Dr. Barr out of [facility]. [facility] Medical History (Updated 10/23/22 @ 06:09 [...] eye drops 1 drp EACH EYE DAILY 05/28/23 [History Last Taken Unknown] Allergy/AdvReac Type Severity [...] IV and his heart rate is now [id number]. CBC shows no leukocytosis. Hemoglobin macular stable. [...] % (Auto) 67.9 Lymph % (Auto) 19.0 [place] % (Auto) 9.6 Eos % (Auto) 2.4 [...] your Primary Care Provider. Call [facility] ([phone]) or report to the closest Emergency Room. Call 911 if necessary. 05/28/23 0727 <Electronically signed by Jameel Brown DO> Cosigner Signature (if applicable): CC: ZACARIAS HOYOS ~ Signed ADDENDUM by Dr. Jose A Clemens MD on 10/23/22 at 0759 Patient care was transferred to mi at 0710. Patient presented because of palpitations discomfort right side of his chest with shortness of breath. Patient does have history of congestive heart failure and atrial fibrillation. He has relocated from [place]. 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 Patient has not taken his Xarelto for [...] (if applicable): cc: ZACARIAS HOYOS ~* Signed [facility] Work Phone: [phone] 385-855602-17-2023 Hospital Discharge instructions Patient Education 07/15/2022 21:17:24 [...] temperature. Use toothpaste made for sensitive teeth. [place] gently up and down instead of sideways. Brushing sideways can wear away root surfaces if they are exposed. If your tooth is chipped or cracked, or if there is a large open cavity, put oil of cloves directlyon the tooth to relieve pain. You can buy oil of cloves at [employer]. Some pharmacies carry an jyjm-zza-jxzcfad "toothache kit." This contains a paste that you can put on the exposed tooth to make it less sensitive. Put a cold pack on your jaw over the sore area to help reduce pain. You may use deyq-nld-oikqawm medicine to ease pain, unless your doctor [...] healthcare provider Pus drains from the tooth 9444-7097 [employer]. [address] [place] [address], [place] [address]. All rights reserved. This information is not intended as a substitute for professional medical care. Always follow yourhealthcare professional's instructions. Follow Up Care 07/15/2022 20:40:26 With:Dental Referral List Address: When:2-4 days [facility] 02-17-2023 Note Discharge Instructions Thank you for allowing [facility] to assist you with your healthcare needs. [...] When Why Instructions Last Dose New acetaminophen-hydrocodone (Clovis 325- 5 mg oral tablet) 1 tab(s) [...] temperature. Use toothpaste made for sensitive teeth. [place] gently up and down instead of sideways. Brushing sideways can wear away root surfaces if they are exposed. If your tooth is chipped or cracked, or if there is a large open cavity, put oil of cloves directlyon the tooth to relieve pain. You can buy oil of cloves at drugstores. Some pharmacies carry an vucy-vot-izxtpoe "toothache kit." This contains a paste that you can put on the exposed tooth to make it less sensitive. Put a cold pack on your jaw over the sore area to help reduce pain. You may use dllt-pwy-anbcbhy medicine to ease pain, unless your doctor [...] healthcare provider Pus drains from the tooth 6941-7607 [employer]. [address] [place] [address]. All rights reserved. This information is not intended as a substitute for professional medical care. Always follow yourhealthcare professional's instructions. Additional Information VACCINATE! IT SAVES LIVES! Members of the community who have not yet received the COVID-19 vaccine and would like to receive it can visit one of [facility] vaccine clinics. There are many vaccine clinic locations within the [facility]. For locations and available times, please visit www.gettheshot.coronavirus.[place].gov/. It is important to note that some COVID mobile vaccine clinics are held outdoors and may be canceled in rainy or stormy conditions. To learn more about pediatric vaccinations (ages 5-11), we invite you to visit the [facility] webpage. https://www.[facility].org/pages/4449-Noylc-Pdivjckywbx-Ormkighzzd-Zrfyd-Trh stions.htmlTo learn more about the COVID-19 vaccine, we invite you to visit the CDC website for a list of frequently asked questions. https://www.cdc.gov/coronavirus/2019-ncov/vaccines/faq.html [facility] Patient Portal Access Instructions: Stay connected with your healthcare team and access your personal medical information anytime with the [employer] Patient Portal. If you would like a full copy of your medical records please contact the [facility] Medical Records Department Monday through Monday between 8a.m. and 4:30p.m. Please follow the directions below to access the portal: 1.Access the email account you provided upon registration to the [facility].2.Look for an invitation email from [facility].3.Open the email and access the invitation link: [facility] to [facility]4.Fill in the required orr to create your account. Sign into [email or web address] with your username and password that you [...] you will allow to register on the [employer] Patient Portal for access to your information. You can also access the [employer] Patient Portal on the [employer] fr[employer]. Simply click on "Health Records" under "HealthData" and then click on the [employer] logo. HOW TO SAFELY DISPOSE OF PRESCRIPTION [...] Call your local pharmacy or go to http://bit.ly/1R7Yt6h to find one close to you.3.Make use of household items: Use cat litter or old coffee grounds to dispose medications if other options arenot available. Mix your drugs with these household products, seal them in an airtight container andthrow it into the garbage. Call [facility]: [phone] to be sure your drugs can be [...] aware that I should contact my doctor. Patient/Telecommunications Manager Signature: Date/Time: Relationship to Patient: Witness Name/Signature: Date/Time: [facility] [id number] Hospital Discharge instructions Patient Education 07/11/2022 09:00:28 [...] alternate ice and heat. You may use medf-tyx-ugjsbmm pain medicine to control pain, unless another [...] hand becomes cold, blue, numb, or tingly 3654-3151 [employer]. [address] [place] [address], [place] [address]. All rights reserved. This information is not intended as a substitute for professional medical care. Always follow yourhealthcare professional's instructions. Follow Up Care 07/11/2022 08:20:34 With:DO MELISSA COHN DO Address: [address] [place] [phone] When:3-7 days With:Go to emergency room if symptoms worsen Address:Unknown When:2-4 days [facility] 02-13-2023 Note Discharge Instructions Thank you for allowing [facility] to assist you with your healthcare needs. [...] COHN DO When Within 3-7 days Where: [address] [place] [phone] Follow Up with Go to emergency [...] alternate ice and heat. You may use krxi-bxb-korvkjj pain medicine to control pain, unless another [...] hand becomes cold, blue, numb, or tingly 3039-8879 [employer]. [address] [place] [address], [place] [address]. All rights reserved. This information is not intended as a substitute for professional medical care. Always follow yourhealthcare professional's instructions. Additional Information VACCINATE! IT SAVES LIVES! Members of the community who have not yet received the COVID-19 vaccine and would like to receive it can visit one of [facility] vaccine clinics. There are many vaccine clinic locations within the [facility]. For locations and available times, please visit www.[email or web address].[place].org. It is important to note that some COVID mobile vaccine clinics are held outdoors and may be canceled in rainy orstormy conditions. To learn more about pediatric vaccinations (ages 5-11), we invite you to visit the [facility] webpage. https://www.[facility].org/pages/3416-Nobcv-Vfssnifcahb-Bmnwtooakz-Sgrig-Uue stions.htmlTo learn more about the COVID-19 vaccine, we invite you to visit the [facility] website for a list of frequently asked questions. https://[facility].org/assets/Zfjrxege-jnt-Yokqwofz/ucqjs-Sgjtkkg-Iunzfzgwpy _Asked-Questions.pdf [employer] Patient Portal Access Instructions: Stay connected with your healthcare team and access your personal medical information anytime with the [employer] Patient Portal. If you would like a full copy of your medical records please contact the [facility] Medical Records Department Monday through Monday between 8a.m. and 4:30p.m. Please follow the directions below to access the portal: 1.Access the email account you provided upon registration to the hospital.2.Look for an invitation email from [facility].3.Open the email and access the invitation link: Accept Invitation to [facility]4.Fill in the required orr to create your account. Sign into [email or web address] with your username and password that you [...] you will allow to register on the [employer] Patient Portal for access to your information. You can also access the [employer] Patient Portal on the [employer]. Simply click on "Health Records" under "HealthData" and then click on the [employer] logo. HOW TO SAFELY DISPOSE OF PRESCRIPTION [...] Call your local pharmacy or go to http://[employer].Petpace/9C2Vt0g to find one close to you.3.Make use of household items: Use cat litter or old coffee grounds to dispose medications if other options arenot available. Mix your drugs with these household products, seal them in an airtight container andthrow it into the garbage. Call [facility]: [phone] to be sure your drugs can be [...] aware that I should contact my doctor. Patient/Telecommunications Manager Signature: Date/Time: Relationship to Patient: Witness Name/Signature: [...] Sign Date: 07/11/2022 8:51:46 AM Ordering Provider: [facility]09-12-[address] [place] [address] PERSONAL HISTORY AND PHYSICAL : [id number] Signed Name: CARLOS ALBERTO HOROWITZ [id number] MRUN: [id number] : 1970 Loc: ENDO Age / Sex: 51/ M Adm Status: PRE [facility] Adm Date:02/15/22 Room/Bed: A 51-year-old patient of [facility] in [place], who comes to discuss endoscopy. He has [...] Date/Time: 02/07/22 1659 Transcribed Date/Time: 02/07/22 1716[facility]* CIRILO MCDONOUGH DO: PERFORM, SIGN, VERIFY Event Display: Anesthesiology Consultation Authored Date: Patient: CARLOS ALBERTO HOROWITZ Age: 53 years [...] device, # 1 EA, 0 Refill(s), Pharmacy: [facility], 177.8, cm, 11/28/23 13:54:00 EDT, Height, 151.4, kg, 11/28/23 13:54:00 EDT, Dosin... Blood Glucose Test Strips: See Instructions, 1 bottle of 100 Test once daily, # 1 EA, 11 Refill(s), Pharmacy: [facility], 177.8, cm, 11/28/23 13:54:00 EDT, Height, 151.4, kg, 11/28/23 13:54:00 EDT, Dosing Weight FLUoxetine 20 mg oral capsule: Dose : 20 mg = 1 cap(s), Oral, qDay, # 30 cap(s), 3 Refill(s), Pharmacy: [facility], 177.8, cm, 11/28/23 13:54:00 EDT, Height, kg, 11/28/23 13:54:00 EDT,Dosing Weight Lancets: See Instructions, qs 1 month supply Test once daily, # 1 EA, 11 Refill(s), Pharmacy: [facility], 177.8, cm, 11/28/23 13:54:00 EDT, Height, 151.4, kg, 11/28/23 13:54:00 EDT, Dosing Weight Lasix 40 mg oral tablet: See Instructions, 1 tab in AM and 0.5 tab in PM, # 135 tab(s), 3 Refill(s), Pharmacy: [facility], 177.8, cm, 11/28/23 13:54:00 EDT, Height, kg, 11/28/23 13:54:00 EDT, Dosing Weight Symbicort 80 mcg-4.5 mcg/inh Inhaler: Dose = 2 puff(s), Inhalation, BID, # 10.2 gram(s), 3 Refill(s), Pharmacy: [facility], 177.8, cm, 11/28/23 13:54:00 EDT, Height, kg, 11/28/23 13:54:00 EDT, Dosing Weight Tikosyn 250 mcg oral capsule: Dose : 250 mcg = 1 cap(s), Oral, BID, # 180 cap(s), 3 Refill(s), Pharmacy: [facility]/pharmacy #[id number], 177.8, cm, 11/28/23 13:54:00 EDT, Height, kg, 11/28/23 13:54:00 EDT, Dosing Weight Toprol-XL 100 mg oral tablet, extended release: Dose : 100 mg = 1 tab(s), Oral, BID, do not crush or chew, # 180 tab(s), 3 Refill(s), Pharmacy: [facility], Shortness of breath, 177.8, cm, 11/28/23 13:54:00 EDT, Height, kg, 11/28/23 13:54:00 EDT, Dosing Weight Trulicity Pen 1.5 mg/0.5 mL subcutaneous solution: Dose : 1.5 mg =, Subcutaneous, qWeek, sent in absence of PCP, # 4 EA, 3 Refill(s), Pharmacy: [facility], 177.8, cm, 11/28/23 13:54:00EDT, Height, kg, 11/28/23 13:54:00 EDT, Dosing Weight Vistaril 25 mg oral capsule: Dose : 25 mg = 1 cap(s), Oral, QID, PRN as needed for anxiety, X 30 day(s), # 120 cap(s), 5 Refill(s), 06/09/24 16:10:00 EST, Pharmacy: [facility], 177.8, cm, 11/28/23 13:54:00 EDT, Height, kg, 11/28/23 13:54:00 EDT, Dosing Weight Xarelto 20 mg oral tablet: Dose : 20 mg = 1 tab(s), Oral, qHS, # 90 tab(s), 3 Refill(s), Pharmacy: [facility], 177.8, cm, 11/28/23 13:54:00 EDT, Height, 151.4, kg, 11/28/23 13:54:00 EDT, Dosing Weight allopurinol 100 mg oral tablet: Dose : 100 mg = 1 tab(s), Oral, qDay, # 90 tab(s), 3 Refill(s), Pharmacy: [facility], 177.8, cm, 11/28/23 13:54:00 EDT, Height, kg, 11/28/23 13:54:00 EDT, Dosing Weight cetirizine 10 mg oral tablet: Dose : 10 mg = 1 tab(s), Oral, Daily, # 90 tab(s), 3 Refill(s), Pharmacy: [facility], 177.8, cm, 11/28/23 13:54:00 EDT, Height, kg, 11/28/23 13:54:00 EDT,Dosing Weight nystatin 100,000 units/g topical cream: Apply 1 frida, Topical, BID, X 10 day(s), # 30 gram(s), 1 Refill(s), Pharmacy: [facility]/pharmacy #[id number], Cream, 177, cm, 01/12/24 9:42:00 EDT, Height, 148.6, kg, 01/12/24 9:42:00 EDT, Dosing Weight omeprazole 40 mg oral delayed release capsule: Dose : 40 mg = 1 cap(s), Oral, BID, before a meal., # 180 cap(s), 3 Refill(s), Pharmacy: [facility], 177.8, cm, 11/28/23 13:54:00 EDT, Height, kg, 11/28/23 13:54:00 EDT, Dosing Weight rosuvastatin 20 mg oral tablet: Dose : 20 mg = 1 tab(s), Oral, Daily, # 100 tab(s), 3 Refill(s), Pharmacy: [facility], 177.8, cm, 11/28/23 13:54:00 EDT, Height, kg, 11/28/23 13:54:00 EDT, Dosing Weight sacubitril-valsartan 49 mg-51 mg oral tablet: Dose = 1 tab(s), Oral, BID, # 180 tab(s), 3 Refill(s), Pharmacy: [facility], 177.8, cm, 11/28/23 13:54:00 EDT, Height, kg, 11/28/23 13:54:00 EDT, Dosing Weight spironolactone 25 mg oral tablet: Dose : 25 mg = 1 tab(s), Oral, qDay, # 90 tab(s), 3 Refill(s), Pharmacy: [facility], 177.8, cm, 11/28/23 13:54:00 EDT, Height, kg, 11/28/23 13:54:00 EDT, Dosing Weight tiZANidine 2 mg oral tablet: Dose : 2 mg = 1 tab(s), Oral, q8h, PRN as needed for muscle spasm, # 90 tab(s), 2 Refill(s), Pharmacy: [facility], 177.8, cm, 11/28/23 13:54:00 EDT, Height, kg, 11/28/23 13:54:00 EDT, Dosing Weight traZODone 100 mg oral tablet: Dose : 100 mg = 1 tab(s), Oral, qHS, # 90 tab(s), 3 Refill(s), Pharmacy: [facility], 177.8, cm, 11/28/23 13:54:00 EDT, Height, [...] list: Medical Asthma exacerbation / SNOMED CT 2717630548 / Confirmed Anxiety / SNOMED CT 96329169 / Confirmed Atopic dermatitis / SNOMED CT 48483514 / Confirmed BMI 45.0-49.9, adult / SNOMED CT 0879041507 / Confirmed Cardiomyopathy / SNOMED CT 094422112 / Confirmed Diabetes mellitus / SNOMED CT 115675826 / Confirmed Generalized anxiety disorder / SNOMED CT 22397680 / Confirmed Hyperlipidemia / SNOMED CT 45226678 / Confirmed Hypertension / SNOMED CT 9217758837 / Confirmed Insomnia / SNOMED CT 817979176 / Confirmed Moderate asthma / SNOMED CT 0145868444 / Confirmed Morbid obesity / SNOMED CT 857388386 / Confirmed Chewing tobacco nicotine dependence / SNOMED CT 61958586 / Confirmed Obstructive sleep apnea / SNOMED CT 967538065 / Confirmed Right knee pain / SNOMED CT 7663706755 / Confirmed Paroxysmal atrial fibrillation / SNOMED CT 811404096 / Confirmed Screening for ischemic heart disease / SNOMED CT 871318707 / Confirmed Screening for colon cancer / SNOMED CT 965145011 / Confirmed Prediabetes / SNOMED CT 8981464190 / Confirmed Right flank pain / SNOMED CT 138586017 / Confirmed Type 2 diabetes mellitus with hemoglobin A1c goal of less than 7.0% / SNOMED CT 571461982 / Confirmed Wheezing / SNOMED CT 03951239 / Confirmed, Active Problems (26) Anxiety Asthma [...] Mother Grandparent Stroke Father Procedure history: Cardioversion ([id number]) on 12/23/2022 at 52 Years. Echocardiogram ([id number]) on 11/11/2022 at 52 Years. Comments: 03/20/2023 [...] right atrial pressure is 15 mm Hg [facility] ([id number]). Comments: 07/11/2022 8:26 CRISTINO Sinha, SHAHEEN warner [...] On and Limits Checked Nail Bed Color [place] Capillary Refill < 2 seconds Heart Sounds [...] Elimination Voiding, no difficulties All Extremity Description [place] Skin Temperature Warm Temperature All Extremities Warm Skin Description [place], Dry Skin Integrity Intact Skin Turgor Non-Elastic Mucous Membrane Color [place] Mucous Membrane Description Moist Neurological Language Able to speak clearly Neurological Symptoms Patient denies Gait Unable to assess Extremity Movement Equal Swallowing Difficulty None Characteristics of Communication Appropriate Characteristics of Speech Clear Facial Symmetry Symmetric Level of Consciousness Alert Aspiration Risk None Eye Opening Response [place] Spontaneously Best Motor Response [place] Obeys simple commands Best Verbal Response Luis Felipe Oriented [place] Coma Score 15 CLARA Yes Strength All [...] On and Limits Checked Nail Bed Color [place] Capillary Refill < 2 seconds Heart Sounds ICU S1S2 Heart Rhythm Irregular Cardiac Rhythm Sinus rhythm Monitoring Lead II, V5/MCL5 [place] Interval 0.16 second(s) QRS Duration 0.08 second(s) [...] Elimination Voiding, no difficulties All Extremity Description [place] Skin Temperature Warm Temperature All Extremities Warm Skin Description [place], Dry Skin Integrity Intact Skin Turgor Non-Elastic Mucous Membrane Color [place] Mucous Membrane Description Moist Neurological Language Able to speak clearly Neurological Symptoms Patient denies Gait Unable to assess Extremity Movement Equal Swallowing Difficulty None Characteristics of Communication Appropriate Characteristics of Speech Clear Facial Symmetry Symmetric Level of Consciousness Alert Aspiration Risk None Eye Opening Response Luis Felipe Spontaneously Best Motor Response Luis Felipe Obeys simple commands Best Verbal Response [place] Oriented Luis Felipe Coma Score 15 CLARA [...] On and Limits Checked Nail Bed Color [place] Capillary Refill < 2 seconds Heart Sounds [...] Movement Makes facial grimaces All Extremity Description [place] Skin Temperature Warm Temperature All Extremities Warm Skin Description [place], Dry Skin Integrity Intact Skin Turgor Non-Elastic Mucous Membrane Color [place] Mucous Membrane Description Moist Sensory Perception [place] [...] Alert Aspiration Risk None Eye Opening Response [place] Spontaneously Best Motor Response [place] Obeys simple commands Best Verbal Response Luis [...] On and Limits Checked Nail Bed Color [place] Capillary Refill < 2 seconds Heart Sounds [...] intact Skin Turgor Non-Elastic Mucous Membrane Color [place] Mucous Membrane Description Moist Neurological Language Able to speak clearly Neurological Symptoms Patient denies Extremity Movement Equal Swallowing Difficulty None Characteristics of Communication Appropriate Characteristics of Speech Clear Facial Symmetry Symmetric Level of Consciousness Alert Aspiration Risk None Eye Opening Response [place] Spontaneously Best Motor Response Luis Felipe Obeys simple commands Best Verbal Response Luis Felipe Oriented [place] Coma Score 15 CLARA Yes Left Pupil [...] of Bed Elevated 30 01/31/2024 15:38 EDT [facility] Current Living Situation I have a steady place to live [facility] Current Issues Living Environment None [facility] Worried Food Running Out P12M Never true [facility] Food Gone, No Money To Buy P12M Never true [facility] No Transport Med/Appt/Work P12M No [facility] Utilities Threaten Shut Off P12M No [facility] Anyone Physically Hurt You Never (1) [facility] Anyone Insult Or Talk Down To You Never (1) [facility] Anyone Threaten You With Harm Never (1) [facility] Anyone Scream Or Curse At You Never (1) [facility] Safety Total Score 4 Living Situation Lives with family Discharge To, Anticipated Home independently Anticipated Discharge Date 02/02/2024 Transition Planning Note Transition Planning Initial Assessment 01/31/2024 15:36 EDT Primary Care Phone Message Transition of Care sent from [facility] 01/31/2024 14:59 EDT heparin 9,000 unit(s) unit(s) Dextrose 5% Premix Diluent 90 mL mL 01/31/2024 14:43 EDT [place] Body Weight 72.7 kg Home Diet Regular Weight Chg, Unintentional Nutrition Hx Weight stable per [place] history Appetite Good Nutrition Plan of Care Dietitian follow up/monitor, Encourage PO feedings, Participate in team conference Nutrition Follow-Up Needed Yes Days until Foundry Superintendant Follow Up Seven days Adult Nutrition Initial [...] On and Limits Checked Nail Bed Color [place] Capillary Refill < 2 seconds Heart Rhythm [...] Description Normal for ethnicity Mucous Membrane Color [place] Mucous Membrane Description Moist Hand Right 01/30/2024 [...] On and Limits Checked Nail Bed Color [place] Capillary Refill < 2 seconds Heart Rhythm [...] intact Skin Turgor Non-Elastic Mucous Membrane Color [place] Mucous Membrane Description Moist Continuous IV Infusions [...] Alert Aspiration Risk None Eye Opening Response [place] Spontaneously Best Motor Response Luis Felipe Obeys [...] On and Limits Checked Nail Bed Color [place] Capillary Refill < 2 seconds Heart Rhythm [...] Description Normal for ethnicity Mucous Membrane Color [place] Mucous Membrane Description Moist Continuous IV Infusions [...] On and Limits Checked Nail Bed Color [place] Capillary Refill < 2 seconds Heart Rhythm [...] intact Skin Turgor Non-Elastic Mucous Membrane Color [place] Mucous Membrane Description Moist Continuous IV Infusions [...] Response Luis Felipe Spontaneously Best Motor Response [place] Obeys simple commands Best Verbal Response Luis Felipe Oriented [place] Coma Score 15 CLARA Yes Left Pupil [...] On and Limits Checked Nail Bed Color [place] Capillary Refill < 2 seconds Heart Rhythm [...] intact Skin Turgor Non-Elastic Mucous Membrane Color [place] Mucous Membrane Description Moist Continuous IV Infusions [...] On and Limits Checked Nail Bed Color [place] Capillary Refill < 2 seconds Heart Rhythm [...] intact Skin Turgor Non-Elastic Mucous Membrane Color [place] Mucous Membrane Description Moist Hand Right 01/30/2024 [...] Response Luis Felipe Spontaneously Best Motor Response [place] Obeys simple commands Best Verbal Response [place] Oriented Luis Felipe Coma Score 15 CLARA [...] #1 We May Share PHI MARILYN OSPINA [phone] Designated Person #1 Relationship Sibling Designated Person #2 We May Share PHI Designated Person #2 We May Share PHI Designated Person #2 Relationship Significant other Privacy Restrictions Requested None Height 175 cm Height in inches 68.9 inch(es) Admission Weight 149.1 kg Weight Lbs 328 lb [place] Body Weight 70.46 kg BSA Admission 2.55 [...] evident Teaching Method Explanation Preferred Spoken Language Croatian Preferred Written Language Croatian Teaching Evaluation No further teaching needed Safety [...] On and Limits Checked Nail Bed Color [place] Capillary Refill < 2 seconds Heart Sounds [...] intact Skin Turgor Non-Elastic Mucous Membrane Color [place] Mucous Membrane Description Moist Sensory Perception [place] [...] Alert Aspiration Risk None Eye Opening Response [place] Spontaneously Best Motor Response Luis Felipe Obeys simple commands Best Verbal Response [place] Oriented Luis Felipe Coma Score 15 CLARA [...] explained to patient, Risks and benefits explained [facility] artist representative Transferring Physician MD SAMY JONES MD Receiving Facility Accepting Transfer Toyah Rep. of Receiving Facility Accepting Pt Dr. flores Date/Time Transfer Accepted 01/30/2024 23:[address] Flores Date/Time Physician Accepted Patient 01/30/2024 23:10 Nurse Receiving Report Nora RN Nurse Receiving Report Nora Date/Time Nurse Received Report 01/31/2024 1:43 Date/Time Nurse Received Report 01/31/2024 1:43 Mode of Transfer Ground ambulance Required Personnel for Transfer Information Security Architect Ambulance Service [facility] Nursing [facility] MICU Discharged [...] 250 mL mL . Assessment and Plan [employer]esthesi[employer] (ASA) physical status classification: [...] CIRILO MCDONOUGH DO on 02/01/2024 06:26 AM [facility] Discharge summary Author Farzad Camilo [facility] Note Date/Time December 21, 2024 1:02 pm [facility] Medical Records Department [address] [place] [address] [facility] MR#: [id number] Acct: [id number] Name: WARRENCARLOS ALBERTO Lucian Kelsey Rep #:[id number] : 1970 54 From: Farzad mejia MD PCP: Dr. Jhonatan Garcia DO Status:ADM BRENNA Certification of patient admission REQUIRED AT TIME OF ADMISSION. I CERTIFY THAT POST-HOSPITAL ECF SERVICES ARE REQUIRED TO BE GIVEN ON AN IN-PATIENT BASIS BECAUSE OF THE ABOVE NAMED PATIENT'S NEED FOR SENIOR CARE CARE ON A CONTINUING BASIS FOR THE CONDITION(S) FOR WHICH HE/SHE WAS RECEIVING IN-PATIENT HOSPITAL SERVICES PRIOR TO HIS/HER TRANSFER TO [facility]. 12/21/24 0845<Electronically signed by Farzad Camilo MD> [...] tissue disorders Allergies/Procedures Done in Hospital Allergies Ruvoylh-QXF-MeG Reductase Inhibitor Allergy (Mild, Verified 12/20/24 13:07) [...] in before D/C Order can be placed): [facility] 12/21/24 0845 <Electronically signed by Farzad Camilo MD> Cosigner Signature (if applicable): CC: Dr. Yaz Dee MD; Dr. Austin Estrada MD; Dr. Jhonatan Garcia DO ~ [facility] Work Phone: Discharge summary Author Farzad Camilo [facility] Note Date/Time December 21, 2024 11:3 8am [facility] Medical Records Department [address] [place] [address] Discharge Summary 12/21/24 4114 MR#: [id number] Acct: [id number] Name: CARLOS ALBERTO HOROWITZ Jr. Rep #:[id number] : 1970 54 From: Farzad mejia MD PCP: Dr. Jhonatan Garcia DO Status:ADM BRENNA Location: DC3 [id number] Providers Date of Admission: 12/20/24 Primary Care Physician: Dr. Jhonatan Garcia, DO Consultations 12/20/24 22:28 Consult: Plastic Surgery [...] Course: Per HPI: CARLOS ALBERTO HOROWITZ, is [id number] male history of hypertension, gout, cardiomyopathy, GERD, diabetes, depression and anxiety, KOFFI who presented [facility] ED 12/20/2024 for right hand pain, [...] 76.3 H, Lymph % (Auto) 10.6 L, [place] % (Auto) 10.6 H, Eos % (Auto) [...] (Auto) 68.8, Lymph % (Auto) 15.1 L, [place] % (Auto) 13.4 H, Eos % (Auto) [...] swelling. No significant bony abnormality Reading Location: [id number] D/C Instructions DC O2, CPAP, BIPAP Needs [...] in before D/C Order can be placed): [facility] Charges/Coding Visit Charges Inpatient E&M: 47671 Disch Hosp >30min 12/21/24 1138 <Electronically signed by Farzad Camilo MD> Cosigner Signature (if applicable): CC: Dr. Farzad Camilo MD; Dr. Jhonatan Garcia DO~ Signed [facility] Work Phone: Evaluation + Plan note No data available for this section [facility] Evaluation + Plan note Future Appointments Appointment Date:11/03/2022 09:15:00 AM Scheduled Provider:ZHOU ESPINOSA Location:[facility] Appointment Type:CV DIESEL ELECTRICIAN Appointment Date:11/08/2022 02:00:00 PM Scheduled Provider:GIRMA CORREA Location:[facility] Appointment Type:PC DIESEL ELECTRICIAN Unassigned ED Follow Up [facility] Evaluation + Plan note Future Appointments Appointment Date:11/04/2022 08:45:00 AM Scheduled Provider: Location:[facility] Appointment Type:CV DIESEL ELECTRICIAN Appointment Date:11/08/2022 02:00:00 PM Scheduled Provider:GIRMA CORREA Location:[facility] Appointment Type:PC DIESEL ELECTRICIAN Unassigned ED Follow Up [facility] Evaluation + Plan note Future Appointments Appointment Date:12/13/2022 03:00:00 PM Scheduled Provider:GIRMA CORREA Location:[facility] Appointment Type:PC OV Follow Up [facility] Evaluation + Plan note Future Appointments Appointment Date:02/07/2023 02:30:00 PM Scheduled Provider:GIRMA CORREA Location:[facility] Appointment Type:PC OV [facility] Evaluation + Plan note Future Appointments Appointment Date:06/20/2023 02:30:00 PM Scheduled Provider:GIRMA CORREA Location:[facility] Appointment Type:PC OV Future Scheduled Tests Laboratory* Basic Metabolic Panel 04/01/23 * A1C Hemoglobin 06/09/23 * Lipid Profile 06/09/23 * Complete Metabolic Panel 06/09/23 [facility] Evaluation + Plan note Future Appointments Appointment Date:08/22/2023 12:00:00 PM Scheduled Provider: Location:[facility] Appointment Type:PF PFT w/Bronchod[place]or Appointment Date:11/07/2023 02:00:00 PM Scheduled Provider:GIRMA CORREA Location:[facility] Appointment Type:PC OV Future Scheduled Tests Laboratory* Basic Metabolic Panel 04/01/23 [facility] Evgaviotaation + Plan note Future Appointments Appointment Date:11/07/2023 02:00:00 PM Scheduled Provider:GIRMA CORREA Location:[facility] Appointment Type:PC OV Future Scheduled Tests Laboratory* Basic Metabolic Panel 04/01/23 [facility] Evricci + Plan note Future Appointments Appointment Date:06/20/2023 10:00:00 AM Scheduled Provider:GIRMA CORREA Location:[facility] Appointment Type:PC OV Hospital Follow-Up Appointment Date:06/20/2023 02:30:00 PM Scheduled Provider:GIRMA CORREA Location:[facility] Appointment Type:PC OV Appointment Date:07/17/2023 03:15:00 PM Scheduled Provider:ZHOU ESPINOSA Location:[facility] Appointment Type:CV OV Future Scheduled Tests Laboratory* Basic Metabolic Panel 04/01/23 * A1C Hemoglobin 06/09/23 * Lipid Profile 06/09/23 * Complete Metabolic Panel 06/09/23 [facility] Evgaviotaation + Plan note Future Appointments Appointment Date:02/13/2024 03:30:00 PM Scheduled Provider:GIRMA CORREA Location:[facility] Appointment Type:PC Wellness Annual w/Labs Future Scheduled Tests Laboratory* Basic Metabolic Panel 04/01/23 * Prostate Specific Antigen 02/07/24 * A1C Hemoglobin 02/07/24 * Lipid Profile 02/07/24 * Complete Metabolic Panel 02/07/24 [facility] Evaluation + Plan note Future Appointments Appointment Date:03/26/2024 08:00:00 PM Scheduled Provider: Location:[facility] Appointment Type: Sameer Study Appointment Date:05/14/2024 03:00:00 PM Scheduled Provider:GIRMA CORREA Location:[facility] Appointment Type: OV Lab Check Future Scheduled Tests Laboratory* Basic Metabolic Panel 02/07/24 * Basic Metabolic Panel 02/19/24 * Basic Metabolic Panel 04/01/23 * Magnesium Level 02/07/24 * A1C Hemoglobin 05/14/24 * Lipid Profile 05/14/24 * Complete Metabolic Panel 05/14/24 [facility] Evaluation + Plan note Future Appointments Appointment Date:04/01/2024 01:00:00 PM Scheduled Provider:DAMIAN SHRESTHA MD Location:[facility] Appointment Type:GS OV Appointment Date:05/14/2024 03:00:00 PM Scheduled Provider:GIRMA CORREA Location:[facility] Appointment Type:PC OV Lab Check Future Scheduled Tests Laboratory* Basic Metabolic Panel 02/07/24 * Basic Metabolic Panel 02/19/24 * Basic Metabolic Panel 04/01/23 * Magnesium Level 02/07/24 * A1C Hemoglobin 05/14/24 * Lipid Profile 05/14/24 * Complete Metabolic Panel 05/14/24 [facility] Evaluation + Plan note Future Appointments Appointment Date:02/13/2024 03:30:00 PM Scheduled Provider:GIRMA CORREA Location:[facility] Appointment Type:PC Wellness Annual w/Labs Future Scheduled Tests Laboratory* Basic Metabolic Panel 02/07/24 * Basic Metabolic Panel 02/19/24 * Basic Metabolic Panel 04/01/23 * Magnesium Level 02/07/24 [facility] Evaluation + Plan note Future Appointments Appointment Date:08/12/2024 03:00:00 PM Scheduled Provider:GIRMA CORREA Location:[facility] Appointment Type:PC Wellness Annual Future Scheduled Tests Laboratory* Basic Metabolic Panel 02/07/24 * Basic Metabolic Panel 02/19/24 * Magnesium Level 02/07/24 [facility] Evaluation + Plan note Future Appointments Appointment Date:10/23/2024 04:00:00 PM Scheduled Provider:GIRMA CORREA Location:[facility] Appointment Type:PC OV Appointment Date:11/08/2024 02:30:00 PM Scheduled Provider:EDY WEBER Location:[facility] Appointment Type:CV OV Hospital Follow Up Future Scheduled Tests Laboratory* Basic Metabolic Panel 02/07/24 * Basic Metabolic Panel 12/10/24 * Basic Metabolic Panel 02/19/24 * Magnesium Level 02/07/24 * Complete Blood Count 08/27/24 * Complete Metabolic Panel 08/27/24 * N-Terminal proBNP 08/27/24 [facility] Evaluation noteNo assessment information available [facility] Work Phone: Hospital Discharge instructions Additional Instructions Call Dr. Etienne's office on Monday to be seen later this coming week.[facility] Work Phone: Hospital Discharge instructions No data available for this section [facility] Hospital Discharge instructions Additional Instructions Chest x-ray negative. COVID and flu negative. Vapor rubs, humidifier. May use loratadine D that you have at home daily. Cough suppressants as needed. Follow-up with your doctor. Return if any worsening symptoms.[facility] Work Phone: Hospital Discharge instructionsAdditional Instructions Your cardiac workup negative in the ED. Your CT angiogram chest negative for blood clots or any acute findings., Your oxygen dropped down while in the emergency department. Your facility continue oxygen as needed. You have sleep apnea history.[facility] Work Phone: Progress note No data available for this section [facility] Reason for referral (narrative)No reason for referral information availableWMercy [facility] Work Phone: Summary note* MACIEJ Rasmussen: [...] October 23, 2022 6 :09am Power of Building Insulation Supervisor No October 23, 2022 6:09am Advance Directive Response Recorded Date/ Time Living Will No February 12, 2023 7:08am Power of Building Insulation Supervisor No January 7:08am Advance Directive Response Recorded Date/ Time Do you have a Healthcare Power of Building Insulation Supervisor? No December 19, 2024 10:20pm Advance Directive Response Recorded Date/ Time Do you have a Healthcare Power of Building Insulation Supervisor? No December 19, 2024 10:20pm Do you have a Healthcare Power of Building Insulation Supervisor? No December 20, 2024 2:24pm Advance Directive Response Recorded Date/ Time Do you have a Healthcare Power of Building Insulation Supervisor? No December 19, 2024 10:20pm Do you have a Healthcare Power of Building Insulation Supervisor? No December 20, 2024 9:23pm Advance Directive Response Recorded Date/ Time Do you have a Healthcare Power of Building Insulation Supervisor? No December 19, 2024 10:20pm Do you have a Healthcare Power of Building Insulation Supervisor? No December 20, 2024 9:23pm Do you have a Healthcare Power of Building Insulation Supervisor? No December 27, 2024 11:24pm Advance Directive Response Recorded Date/ Time Do you have a Healthcare Power of Building Insulation Supervisor? No December 19, 2024 10:20pm Do you have a Healthcare Power of Building Insulation Supervisor? No December 20, 2024 9:23pm Do you have a Healthcare Power of Building Insulation Supervisor? No December 28, 2024 4:09am Chief Complaint [...] 2024 10:1 8pm Chief Complaint Admit Date SENIOR CARE LAB [...] December 202024 5:52pm Chief Complaint Admit Date SENIOR CARE LAB [...] 2024 5 :52pm Chief Complaint Admit Date SENIOR CARE LAB [...] 28, 2024 3:27am Chief Complaint Admit Date SENIOR CARE LAB [...] 8am History of fracture of right ankle Augus 2024 3:48am Morbid obesity with BMI of 45.0-49.9, ad ult December 28, 2024 3:48am Obstructive sleep apnea December 28, 2024 3:48am Palpitations December 28, 2024 3:4 8am Postoperative infection December 28, 2024 3:48am Additional Source Comments (unrecognized sect ion and content) No Status Records FoundNo Status Records FoundNo Status Records FoundNo Status Records FoundNo Status Records FoundNo Status Records FoundNo Status Records FoundNo Status Records FoundNo Status Records FoundNo Status Records FoundNo Status Records Found INFORMATION SOURCE (unrecogn ized section and content) DATE CREATED AUTHOR 02/15/2021 [facility] DATE CREATED AUTHOR AUTHOR'S ORGANIZ ATION 08/25/2021 [facility] DATE CREATED AUTHOR AUTHOR'S ORGANIZ ATION 2021 [employer] DATE CREATED AUTHOR AUTHOR'S ORGANIZ ATION 06/07/2022 [facility] DATE CREATED AUTHOR AUTHOR'S ORGANIZ ATION 08/17/2022 [facility] DATE CREATED AUTHOR AUTHOR'S ORGANIZ ATION 10/13/2023 [facility] DATE CREATED AUTHOR AUTHOR'S ORGANIZ ATION 02/02/2024 [facility] ([place]) DATE CREATED AUTHOR AUTHOR'S ORGANIZ ATION 10/23/[address] [facility] DATE CREATED AUTHOR AUTHOR'S ORGANIZ ATION 12/20/2024 [facility] DATE CREATED AUTHOR AUTHOR'S ORGANIZ ATION 01/12/2025 [facility] DATE CREATED AUTHOR AUTHOR'S ORGANIZ ATION 02/11/2025 [facility] Care Team (unrecognized sect ion and content) Care Team Personnel Name: PHYSICIAN, NONE Position: Physician Member Role: Primary Care Physician Name: MALORIE PEGUERO MD Position: ED Physician Member Role: ED Physician Address: Address: [address] [place] [address]- Name: SHAHEEN Sinha Position: AO RN Member Role: ED RN Care Team Related Persons Name: MAST, MARILYN Care Team Personnel Name: PHYSICIAN, NONE Position: Physician Member Role: Primary Care Physician Name: JEREMIE MCCORMACK MD Position: ED Physician Member Role: ED Physician Address: Address: [facility] [address] [address] [place] [address]- Name: Halley Staples RN Position: AO RN Member Role: ED RN Name: Nadya Montenegro RN Position: AO RN Member Role: ED RN Care Team Related Persons Name: MAST, MARILYN Care Teams (unrecognized sec tion and content) Team Status: Active Member Role Status Dates Dr. Ollie Bright MD Family Provider Active ZACARIAS HOYOS Primary Care Provider Active Team Status: Inactive Member Role Status Dates Dr. Jameel Brown DO Emergency Provider Active ROMAIN ADAMES Primary Care Provider Active Team Status: Active Member Role Status Dates Dr. Ollie Bright MD Family Provider Active Girma Correa DIESEL ELECTRICIAN, DIESEL ELECTRICIAN-C Primary Care Provider Active Team Status: Inactive Member Role Status Dates Dr. Jameel Brown DO Attending Provider, Emergency Provider Active ROMAIN ADAMES Primary Care Provider Active Team Status: Inactive Member Role Status Dates Dr. Nguyễn Al DO Emergency Provider Active Girmaviktoria Correa DIESEL ELECTRICIAN, DIESEL ELECTRICIAN-C Primary Care Provider Active Team Status: Active Member Role/Relationship Status Dates Dr. Jhonatan Garcia DO Primary Care Provider Active Team Status: Active Member Role/Relationship Status Dates Girma Alvareznaveed DIESEL ELECTRICIAN, DIESEL ELECTRICIAN-C Primary Care Provider Active Start: October 24, 2024 Dr. Dolly HOLCOMB MD Attending Provider Active Start: October 24, 2024 Team Status: Active Member Role/Relationship Status Dates Girma Alvareznaveed DIESEL ELECTRICIAN, DIESEL ELECTRICIAN-C Primary Care Provider Active Start: October 28, 2024 Dr. Dolly HOLCOMB MD Attending Provider Active Start: October 28, 2024 Dr. Dolly HOLCOMB MD Referring Provider Active Start: October 28, 2024 Team Status: Active Member Role/Relationship Status Dates Girma Sunny DIESEL ELECTRICIAN, DIESEL ELECTRICIAN-C Primary Care Provider Active Start: October 30, 2024 Dr. Dolly HOLCOMB MD Attending Provider Active Start: October 30, 2024 Team Status: Active Member Role/Relationship Status Dates Girma Alvareznaveed DIESEL ELECTRICIAN, DIESEL ELECTRICIAN-C Primary Care Provider Active Start: November 04, 2024 Dr. Dolly HOLCOMB MD Attending Provider Active Start: November 04, 2024 Team Status: Active Member Role/Relationship Status Dates Girma Alvareznaveed DIESEL ELECTRICIAN, DIESEL ELECTRICIAN-C Primary Care Provider Active Start: November 06, [...] Inactive Member Role/Relationship Status Dates Girma Correa NP, DIESEL ELECTRICIAN-C Primary Care Provider Active Start: November 04, [...] End: December 29, 2024 Dr. Keagan Garrett , DO Other Provider Active Sta rt: December [...] 2024 End: December 29, 2024 Landon Ramirez DIESEL ELECTRICIAN, DIESEL ELECTRICIAN-C Other Provider Active Start : December 28, [...] Start: December 29, 2024 Dr. Nguyễn Al , Emergency Provider Active Start : December 29, [...] Active Start: December 29, 2024 Landon Ramirez DIESEL ELECTRICIAN, DIESEL ELECTRICIAN-C Other Provider Active Start : December 29, 2024 Barbara PRATHER, PA Other Provider Active Start: December 29, [...] BE BASED ON THE PRIMARY CLINICAL RECORDS. [employer] provides no warranty or guarantee of the accuracy or completeness of information in this document.
[2025-02-13 09:01] LABS: Hematocrit 45.4 % (40-54); Hemoglobin 14.2 g/dL (13.0-16.5); Immature Granulocytes Count 0.010 X10^3/uL (0.0-0.0); Mean Corp Hgb Conc 31.3 g/dL (32-36); Mean Corpuscular Volume 85.2 fL (80-94); Mean Platelet Vol. 10.7 fl (6.2-12.0); NRBC Flagged by Analyzer 0 % (0-5); Platelet Count 137 K/mm3 (150-450); RBC Distribution Width CV 15.2 % (11.6-14.6); RBC Distribution Width SD 46.6 fl (35.1-43.9); Red Blood Count 5.33 M/mm3 (4.6-6.2); White Blood Count 3.7 K/mm3 (4.4-11.0)
[2025-02-13 10:25] LABS: AST(SGOT) 23 U/L (<=37); Alanine Aminotransfer ALT/SGPT 17 U/L (<=46); Albumin, Serum 3.8 g/dL (3.5-5.0); Alkaline Phosphatase 55 U/L (40-129); Anion Gap 12 (5-15); BUN 15 mg/dL (4-19); BUN/Creat Ratio 17.0 RATIO (10-20); CRP < 3.00 mg/L (0.0-3.0); Calcium,Total 8.8 mg/dL (7.6-11.0); Carbon Dioxide 23.9 mmol/L (21.0-32.0); Chloride 103 mmol/L (98-108); Globulin 3.3 g/dL (2.2-4.2); Glucose 110 mg/dL (70-99); Potassium 4.3 mmol/L (3.3-5.1)
== END ==
LOC: OLS.SW 04:00
PROVIDERS: Referring Provider Family Medicine; Visit Provider Family Medicine
DX: E11.9 Type 2 diabetes mellitus without complications (principal); J44.9 Chronic obstructive pulmonary disease, unspecified
CPT/HCPCS: 36415; 80053; 85025; 85652; 86140